=== PATIENT | female | born 1955 | race Caucasian/White ===

== ENCOUNTER 2016-03-11 09:48 | Outpatient (RCR) | payer MEDICARE, MEDICAID ==
--- OUTSIDE RECORDS SUMMARY | 2016-01-08 12:42 | XMS REPORT | Continuity of Care Document ---
Author Author [facility] Organization [facility] Address Unknown Phone Unavailable Care Team Providers Care Camera Systems Engineer Name Role Phone Aneudy Petit PCP [phone] Source Comments Some departments are not documenting in the electronic medical record. If you do not see the information that you expected, contact Release of Information in the Health Information Management department at [phone] for further assistance in locating additional records.[facility] Active Allergies and Adverse Reactions Allergen Noted Date Severity Reactions Comments Ibuprofen 06/09/2009 Pcn 06/09/2009 Current Medications Prescription Sig. Disp. Refills Start End Date Status Date colestipol (COLESTID) 1 Take 1 g by mouth Three Active gram tablet Times Daily. Quetiapine (SEROQUEL XR) Take 400 mg by mouth Active 400 mg Tb24 Daily. ramelteon,+, (ROZEREM) 8 Take 8 mg by mouth At Active mg Tab Bedtime Daily. ropinirole (REQUIP) 2 mg Take 2 mg by mouth At Active tablet Bedtime Daily. simvastatin (ZOCOR) 20 mg Take 20 mg by mouth At Active tablet Bedtime Daily. memantine,+, (NAMENDA) 10 Take 10 mg by mouth Twice Active mg tablet Daily. donepezil (ARICEPT) 10 mg Take 10 mg by mouth At Active tablet Bedtime Daily. budesonide/formoterol Inhale 2 Puffs by mouth Active (SYMBICORT) 160/4.5 mcg daily. HFAA inhalation tiotropium (SPIRIVA) 18 Inhale 18 mcg by mouth Active mcg capsule for inhaler daily. Omalizumab (XOLAIR) 150 Inject 150 mg into Active mg SolR area(s) as directed every 30 days. ARIPiprazole (ABILIFY) 10 Take 10 mg by mouth Active mg tablet daily. alendronate (FOSAMAX) 70 Take 70 mg by mouth every Active mg tablet 7 days. ALPRAZolam (XANAX) 1 mg Take 1 mg by mouth as Active tablet Needed. nitroglycerin (NITROSTAT) Place 0.4 mg under tongue Active 0.4 mg tablet every 5 minutes as needed for Chest Pain. diphenoxylate/atropine Take 2 Tabs by mouth as Active (LOMOTIL) 2.5/0.025 mg Needed for Diarrhea. tablet gabapentin (NEURONTIN) Take 1,200 mg by mouth Active 600 mg tablet three times daily. apixaban (ELIQUIS) 5 mg Take 5 mg by mouth twice Active tab tablet daily. digoxin (LANOXIN) 125 mcg Take 0.125 mg by mouth Active tablet daily. oxyCODONE (ROXICODONE) 5 Take 5 mg by mouth every Active mg tablet 6 hours as needed for Pain other medication 1 Dose. 3L/NC home oxygen Active primidone (MYSOLINE) 250 Take 250 mg by mouth Active mg tablet every 8 hours. Desvenlafaxine (PRISTIQ) Take by mouth daily. Active 100 mg Tb24 octreotide (SANDOSTATIN) Inject 1 mL into area(s) 60 mL 1 01/21/20 Active 50 mcg/mL injection as directed twice daily 15 with meals. Syringe (Disposable) 1 mL To inject octreotide 50 60 Syringe 12 Active syrg mcg BID with meals 15 Needle (Disp) 25 G 25 x To inject octreotide 60 Each 12 01/28/20 Active 5/8 " ndle 50mcg BID with meals 15 oxybutynin XL (DITROPAN Take 1 Tab by mouth 90 Tab 3 05/09/19 Active XL) 10 mg tablet daily. 16 estrogens, conjugated(+) half a gram per vagina 1 Container 2 Active (PREMARIN) 0.625 mg/g twice per week 16 vaginal cream FLUTICASONE PROPIONATE Insert into nose as Active (FLONASE NA) directed. CETIRIZINE HCL (ZYRTEC Take by mouth. Active PO) omeprazole DR(+) Take 1 Cap by mouth twice 60 Cap 2 08/29/19 Active (PRILOSEC) 40 mg capsule daily before meals. 16 metoprolol XL (TOPROL XL) Take 100 mg by mouth Active 100 mg tablet daily. oxybutynin XL (DITROPAN Take 1 Tab by mouth 90 Tab 0 11/02/19 Active XL) 10 mg tablet daily. 16 Active Problems Problem Noted Date Urge incontinence of urine 06/13/2015 Last Assessment & Plan: Long standing leakage Has had RICO procedures Worse overnight / nocturia Reports incomplete emptying at times - PLAN Urodynamics (to be scheduled after performing a Cysto due to hematuria and prior sling procedures and age > 40 and smoking history) Hematuria 06/13/2015 Last Assessment & Plan: Hematuria noted on today's urine analysis patient is a smoker and has resumed smoking after quitting for a long time workup using cystoscopy has been completed and it was negative no Real system imaging on file - PLAN order placed for CT scan of abdomen and pelvis to assess for Masses and urothelial abnormalities with indication of hematuria Voiding dysfunction 06/13/2015 Last Assessment & Plan: The patient and I had extensive discussion regarding her voiding dysfunction and how it relates to her multiple sclerosis we discussed the fact that multiple sclerosis the disease that waxes and wanes and thus according to That her voiding ability will vary and thus she will need to catheterize herself at times if she feels that she is distended has it has not been able to Empty well History of pubovaginal sling 06/13/2015 Last Assessment & Plan: Has had a sling as well as bulking agent plaed for RICO but still leaks No recent UROs Has not been asessed for OAB / no meds tried as per patient - PLAN Urodynamics after Cysto (check UPP) Heartburn 01/19/2015 COPD (chronic obstructive pulmonary disease) ([facility]) 05/18/2012 Diabetes mellitus (HCC) 05/18/2012 TIA (transient ischemic attack) 05/18/2012 Diarrhea 05/18/2012 Most Recent Encounters Date Type Specialty Providers Description 12/20/2015 Patient Profile Cardiology Wilfredo Fleming New Patient - A Fib 12/15/2015 Telephone Cardiology Symone Lee Records Request 12/08/2015 Telephone Gastroenterology Edgardo Torres MD Records Request 11/10/2015 Telephone Uro Gilles Wilson MD Results 11/06/2015 Telephone Uro Gilles Wilson MD General Question 10/27/2015 Telephone [facility] [employer] [facility] Gilles Ness MD New Treatment Follow Up 10/26/2015 Telephone Uro Gilles Wilson MD Patient Information 10/25/2015 [facility] Gilles Ness MD Hematuria, unspecified Encounter 10/25/2015 Office Visit [facility] [employer] Gilles Ness MD Hematuria (Primary Dx ); Voiding dysfunction Social History Tobacco Use Types Packs/Day Years Used Date Former Smoker Cigarettes 40 Quit: 05/29/2015 Smokeless Tobacco: Never Used Tobacco Cessation: Ready to Quit: No; Counseling Given: Yes Comments: Alcohol Use Drinks/Week oz/Week Comments No 0 Standard 0.0 drinks or equivalent Last Filed Vital Signs Vital Sign Reading Time Taken Blood Pressure 101/65 10/25/2015 10:12 AM CDT Pulse 74 10/25/2015 10:12 AM CDT Temperature 36.8 C (98.2 F) 06/13/2015 1:02 PM [employer] Respiratory Rate 20 10/25/2015 10:12 AM CDT Height 1.626 m (5' 4") 10/25/2015 10:12 AM CDT Weight 65.772 kg (145 lb) 10/25/2015 10:12 AM CDT Body Mass Index 24.88 10/25/2015 10:12 AM CDT Oxygen Saturation 96% 09/26/2015 5:00 PM CDT Plan of Care Date Type Specialty Providers Description 04/22/2016 Appointment [facility] Gilles Ness MD [address] [facility] [address] [place] [address] [phone] (Fax) Health Maintenance Due Date Last Done Comments Hepatitis C Screening 1955 Physical (Comprehensive) 1960 Exam Pertussis Vaccine 1964 Tetanus Vaccine 1970 Dilated Eye Exam 07/21/1971 Foot Exam 07/21/1971 Hba1c 07/21/1971 Microalbumin 07/21/1971 Pneumonia Vaccine (Dm) 07/21/1971 Cervical Cancer Screening 1974 Breast Cancer Screening 1993 Colorectal Cancer 07/21/2003 Screening Shingles Vaccine 2013 Influenza Vaccine 12/07/2015 Results from Last [address] ABD/PELV WO/W CONTRAST (11/10/2015)CULTURE-URINE W/SENSITIVITY (10/25/2015 10 :10 AM) Component Value Range Battery Name URINE CULTURE Specimen Description URINE, CLEAN CATCH Special Requests NONE Culture NO GROWTH Report Status FINAL 10/26/2015 Specimen Urine - Urine,Clean Catch HC BLADDER SCAN (10/25/2015) Component Value Range Post Void Residual 0 mL POC URINE DIPSTICK MANUAL READ (10/25/2015) Component Value Range Urine Glucose POC neg Urine Bilirubin POC neg Urine Ketone POC neg Urine Specific [place] 1.015 POC Urine Blood POC 5 Urine PH POC 5.0 Urine Protein POC neg Urine Urobilinogen POC neg Urine Nitrite POC neg Urine Leukocytes POC neg Color,UA lt yellow Turbidity,UA clear Specimen Urine
[2016-01-17] MEDS: OMALIZUMAB SUB-Q 150 MG (XOLAIR) VIAL SQ SCH (14:45)
[2016-01-17 14:49] VITALS: BP 130/80
[2016-02-14] MEDS: OMALIZUMAB SUB-Q 150 MG (XOLAIR) VIAL SQ SCH (10:15)
[2016-02-14 10:22] VITALS: BP 123/64
[~2016-03-11] VITALS: Ht 162.6 cm; Wt 67.6 kg
[~2016-03-11 09:48] MED LIST: ACIPHEX; ALB0.5V INH; ALBU8.5H2 IH; ALBU8.5H4 IH; ALEN70TA47 PO; ALN70T PO; ALPR.5T PO; ALPR0.5T72 PO; ALPR1TAB2 PO; ALPR1TAB7 PO; AMIO200T10 PO; APIX5TAB PO; APIX5TAB2 PO; ARIP10TA10 PO; ARIP15TA9 PO; ASP325T PO; ASP325TEC PO; ASP81TEC PO; BACL10TA PO; BUDE10.2 IH; BUDE6HFA IH; BUTA1CAP42 PO; CALC-80 PO; CALC600T PO; CEPH-507 PO; CETI10TA17 PO; CHANTIX; CHLO500T2 PO; CHOL200018 PO; CHOL4PAC19; CIPR-17; CIPR-225 PO; CLCX200C PO; CLIN300C3 PO; CODE1CAP20 PO; COLE1TAB; COLE1TAB PO; CTRZ10T; CYCL10TA9; CYCL10TA9 PO; DESV100T PO; DESV50TA PO; DEXL60CA5 PO; DIAZ2TAB2 PO; DICY10CA26 PO; DIGO-10 PO; DIGO125T PO; DILT240C9 PO; DILT240C90 PO; DILTIAZEM; DIPH1TAB PO; DIPH1TAB25 PO; DIPH1TAB45 PO; DIVA500T15 PO; DNPZ10T PO; DNPZ5T; DRON400T2 PO; DULO30CA; DVL500TSR PO; ESCI10TA55 PO; ESCI20TA2 PO; ESCT10T; ESZO3TAB3 PO; FAMO20TA13; FLDR.1T PO; FLUT16SP22 NSEACH; FLUT1DIS26 IH; FURO20TA4 PO; GABA-488 PO; GABA300T; GABA600T PO; GABA600T2 PO; GBPN300C; GBPN300C PO; GFN600TCR PO; HSCO125; HYDR-1231 PO; HYDR-2858; HYDR-2889 PO; HYDR-3714 PO; HYDR-3720 PO; HYDR-3812; HYDR-3874 PO; HYDR-3923 PO; HYDR-700 PO; HYDR1CAP2 PO; HYDR1TAB66 PO; HYDR1TAB86; IBUP-1773 PO; LEVO500T2 PO; LEVO750T9 PO; LIPA1CAP21; LNS30CCR; LOPE2CAP; LRT10T; LRT10T PO; MAGN400T6 PO; MELO-195 PO; MEMA10TA PO; MEMA10TA22 PO; MEMA28CA PO; MERO1VIA3 IV; METO10TA3 PO; METO5TAB75 PO; METO5TAB79 PO; MNTL10T PO; MONT10TA21 PO; MONT10TA24 PO; MORP30CP12 PO; MTC10T; MTF500T; NAPR-243 PO; NAPR550T PO; NICO1PAT34 TD; NITR-65 PO; NITR0.3T6 SL; NITR0.4T PO; NORT25CA PO; NTR.4SL; NTR.4SL SL; OCTR100V2 IJ; OLOP2.5D OU; OMEP40CA36 PO; ONDA8TAB9 PO; OPIU10TI PO; ORPH100T PO; OXC5T PO; OXYB10TA PO; OXYC-309 PO; PANT40TA PO; PGLT30T; PHEN-640 PO; PIOG45TA PO; PNT40TEC; PNT40TEC PO; POTA10CA43 PO; POTA10TA36 PO; POTA10TA6 PO; POTA40LI PO; PRD20T PO; PREG100C22; PREG50C PO; PRIM250T PO; PRIM50TA33 PO; PRM25T PO; QUET300T; QUET400T; QUET400T PO; RAME8T PO; ROFL500T PO; ROPI2TAB28 PO; ROPI2TAB4 PO; RT-ALBUINH IH; SCR1T1 PO; SIMV20TA PO; SIMV20TA3 PO; SMTR6KT.5 SQ; SMV20T PO; SUCR1TAB PO; SULF1TAB35 PO; TEMA15CA54 PO; TEMA30CA PO; TIOT18CA IH; TIOT18CA2 IH; TIZA4TAB55 PO; TMZP15C PO; TOPI100T PO; TOPI25TA10 PO; TOPI50TA2 PO; TRAM-21 PO; TRAM50TA2 PO; TRAZ-28 PO; TRAZ150T42 PO; TRIA5PAS10 TOP; TRIH2TAB2 PO; TRZ50T; VORT20TA PO; ZLP10T; ZLP10T PO; ZLP5T PO; ZOLP5TAB7 PO; [UNRECOGNIZED DRUG - CODE]; [UNRECOGNIZED DRUG - CODE] PO; norflex PO
[2016-03-11 11:04] VITALS: BP 107/67
[2016-03-11] MEDS: OMALIZUMAB SUB-Q 150 MG (XOLAIR) VIAL SQ SCH (11:04)
== END 2016-04-07 | disposition home or self-care (01) ==
LOC: SDC 09:48
PROVIDERS: ATTEND Internal Medicine Pulmonary Disease
DX: J45.50 Severe persistent asthma, uncomplicated (principal)
CPT/HCPCS: 96372

== ENCOUNTER → 2016-04-18 | Outpatient (CLI) | payer MEDICARE, MEDICAID ==
[~2016-04-18] MED LIST changes: +CEFD300C3 PO; +CITA20TA7 PO; +DILT240C PO; +DONE5TAB30 PO; +FAMO20TA3 PO; +FESO4TAB PO; +FLUC100T6 PO; +FLUR15CA14 PO; +HYDR-756 PO; +LEVO750T39 PO; +METO-352 PO; +VORT5TAB PO
[2016-04-18 16:02] LABS: MEAN PLATELET VOLUME 10.4 FL (7.4-10.4); RED BLOOD COUNT 4.65 10^6/uL (4.35-5.85); RED CELL DISTRIBUTION WIDTH 13.6 % (10.0-14.5); WHITE BLOOD COUNT 9.1 10^3/uL (4.3-11.0)
[2016-04-18 16:20] LABS: ALANINE AMINOTRANSFERASE 13 U/L (0-55); ANION GAP 9 MMOL/L (5-14); ASPARTATE AMINO TRANSFERASE 20 U/L (5-34); BILIRUBIN,TOTAL 0.3 MG/DL (0.1-1.0); BLOOD UREA NITROGEN 6 MG/DL (7-18); BUN/CREATININE RATIO 10; CALCIUM 9.2 MG/DL (8.5-10.1); CARBON DIOXIDE 24 MMOL/L (21-32); CHLORIDE 102 MMOL/L (98-107); CREATININE SERUM 0.61 MG/DL (0.60-1.30); GFR ESTIMATED > 60; GLUCOSE 76 MG/DL (70-105); POTASSIUM 4.3 MMOL/L (3.6-5.0); SODIUM 135 MMOL/L (135-145); TOTAL PROTEIN 6.5 G/DL (6.4-8.2)
== END ==
LOC: LAB 15:45
PROVIDERS: ATTEND Nurse Practitioner Family
DX: J44.9 Chronic obstructive pulmonary disease, unspecified (principal)
CPT/HCPCS: 36415; 80053; 85027

== ENCOUNTER → 2016-04-23 | Outpatient (CLI) | payer MEDICARE, MEDICAID ==
--- NOTE | 2016-04-23 14:41 | Diagnostic Imaging Report ---
PROCEDURE: CT chest without contrast. TECHNIQUE: Multiple contiguous axial images were obtained through the chest without the use of intravenous contrast. INDICATION: Dyspnea and weight loss, history of tobaccoism. COMPARISON: 08/04/2015. DISCUSSION: Underlying moderate/ severe emphysematous changes are again demonstrated bilaterally, stable. No focal consolidation. No pulmonary nodule or suspicious mass. Antecedent granulomatous disease is again noted, benign. The pulmonary arteries are dilated consistent with underlying pulmonary artery hypertension, increased from prior. Mild cardiomegaly is stable. No pleural or pericardial fluid. No mediastinal, hilar, or axillary adenopathy. The gallbladder is surgically absent. The visualized upper abdomen is otherwise unremarkable. Postoperative changes are noted within the cervical spine. No acute osseous abnormality is identified. IMPRESSION: 1. Stable chronic changes of emphysema. 2. Mild cardiomegaly. 3. Pulmonary artery hypertension. Dictated by: Dictated on workstation # [id number]
== END ==
LOC: RAD 13:34
PROVIDERS: ATTEND Nurse Practitioner Family
DX: J44.9 Chronic obstructive pulmonary disease, unspecified (principal); Z72.0 Tobacco use; R63.4 Abnormal weight loss; J45.909 Unspecified asthma, uncomplicated
CPT/HCPCS: 71250

== ENCOUNTER 2016-04-24 05:53 | Outpatient (CLI) | payer MEDICARE, MEDICAID ==
[~2016-04-24] VITALS: Ht 162.6 cm; Wt 68.9 kg
[~2016-04-24 05:53] MED LIST changes: -CEFD300C3 PO; -CITA20TA7 PO; -DILT240C PO; -DONE5TAB30 PO; -FAMO20TA3 PO; -FESO4TAB PO; -FLUC100T6 PO; -FLUR15CA14 PO; -HYDR-756 PO; -LEVO750T39 PO; -METO-352 PO; -VORT5TAB PO
[2016-04-26] MEDS ORDERED: FLUC100T6 PO (13:07)
== END 2016-04-24 10:32 ==
LOC: PREOP 05:53
PROVIDERS: ATTEND Surgery Pediatric Surgery
DX: Z01.818 Encounter for other preprocedural examination (principal); K21.9 Gastro-esophageal reflux disease without esophagitis

== ENCOUNTER 2016-04-26 10:33 | Day surgery (SDC) | payer MEDICARE, MEDICAID ==
[~2016-04-26] VITALS: Ht 162.6 cm; Wt 68.9 kg
[2016-04-26] MEDS ORDERED: NS IV 500 ML 500 ML ONE (10:36)
[2016-04-26] MEDS ORDERED: NS IV 500 ML 500 ML IV PRN (11:25)
[2016-04-26] MEDS ORDERED: HURRICAINE EXT TUBE (BENZOCAINE) XX PRN (11:30)
[2016-04-26] MEDS ORDERED: FLUMAZENIL (ROMAZICON) 0.1 MG/ML 5 ML VIAL INJ PRN (11:30)
[2016-04-26] MEDS ORDERED: LIDOCAINE JELLY 2% (XYLOCAINE) 5 ML TUBE MM PRN (11:30)
[2016-04-26] MEDS ORDERED: NALOXONE 0.4 MG/ML 1 ML (NARCAN) VIAL IVP PRN (11:30)
--- NOTE | 2016-04-26 11:46 | Conscious Sedation/ASA ---
Conscious Sedation Pre-Proced Time Reviewed: 11:45 ASA Class: 3 Airway Mallampati Classification: ([place] appropriate class) I. II. III, IV Lungs Heart ASA score ASA 1: a normal healthy patient ASA 2: a patient with a mild systemic disease (mid diabetes, controlled hypertension, obesity ASA 3: a patient with a severe systemic disease that limits activity (angina , COPD, prior Myocardial infarction) ASA 4: a patient with an incapacitating disease that is a constant threat to life (CHF, renal failure) ASA 5: a moribund patient not expected to survive 24 hrs. (ruptured aneurysm) ASA 6: a declared brain patient whose organs are being harvested. For emergent operations, add the letter E after the classification Grade 2 Sedation Plan: Analgesia, Amnesia, Plan communicated to team members, Discussed options with patient/fam, Discussed risks with patient/fam Note The patient is an appropriate candidate to undergo the planned procedure, sedation, and anesthesia. The patient immediately re-assessed prior to indication. PETAR NORMAN MD Apr 26, 2016 11:46 am
[2016-04-26] MEDS ORDERED: DILT240C PO (11:47)
[2016-04-26] MEDS ORDERED: METO-352 PO (11:47)
[2016-04-26] MEDS ORDERED: FLUR15CA14 PO (11:47)
[2016-04-26] MEDS ORDERED: FAMO20TA3 PO (11:47)
[2016-04-26] MEDS ORDERED: CEFD300C3 PO (11:47)
[2016-04-26] MEDS ORDERED: HYDR-756 PO (11:47)
[2016-04-26] MEDS ORDERED: BACL10TA PO (11:47)
[2016-04-26] MEDS ORDERED: DONE5TAB30 PO (11:47)
[2016-04-26] MEDS ORDERED: LEVO750T39 PO (11:47)
[2016-04-26] MEDS ORDERED: FESO4TAB PO (11:47)
[2016-04-26] MEDS ORDERED: VORT5TAB PO (11:47)
[2016-04-26] MEDS ORDERED: TRAM50TA2 PO (11:47)
[2016-04-26] MEDS ORDERED: CITA20TA7 PO (11:47)
--- NOTE | 2016-04-26 11:47 | Progress Note-Pre Operative ---
Pre-Operative Progress Note H&P Reviewed The H&P was reviewed, patient examined and no changes noted. Date H&P Reviewed: Apr 26, 2016 Time H&P Reviewed: 11:45 Pre-Operative Diagnosis: dysphagia, GERD PETAR NORMAN MD Apr 26, 2016 11:47 am
[2016-04-26] MEDS ORDERED: morphine INJ 10 MG/ML 1ML (SYR OR VIAL) IV PRN (12:00)
[2016-04-26] MEDS ORDERED: HYDROcodone/APAP 5 MG/325 MG (LORTAB) TAB PO PRN (12:00)
[2016-04-26] MEDS ORDERED: ONDANSETRON 4 MG/2 ML (SDV) Z0FRAN IV PRN (12:00)
[2016-04-26] MEDS ORDERED: ACETAMINOPHEN 325 MG TABLET/CAPLET (TYLENOL) PO PRN (12:00)
[2016-04-26] MEDS ORDERED: LIDOCAINE JELLY 2% (XYLOCAINE) 5 ML TUBE ONE (12:23)
[2016-04-26] MEDS ORDERED: HURRICAINE EXT TUBE (BENZOCAINE) ONE (12:24)
[2016-04-26] MEDS ORDERED: MIDAZOLAM 2 MG/2 ML (VERSED) VIAL ONE ×4 (12:24)
[2016-04-26] MEDS ORDERED: fentaNYL INJECTION 100 MCG/2 ML AMP ONE (12:24)
[2016-04-26] MEDS: fentaNYL INJECTION 100 MCG/2 ML AMP IVP PRN ×2 (12:28→12:31)
[2016-04-26] MEDS: MIDAZOLAM 2 MG/2 ML (VERSED) VIAL IVP PRN ×3 (12:30→12:35)
[2016-04-26 12:38] VITALS: BP 132/65
--- NOTE | 2016-04-26 13:06 | Progress Note-Post Operative ---
Post-Operative Progess Note Pre-Operative Diagnosis dysphagia, GERD Post-Operative Diagnosis reflux esophagitis(class C), distal esophageal stricture and plaque, moderate gastritis. Post-Op Procedure Note Date of Procedure: Apr 26, 2016 Name of Procedure: EGD with bx and brushings and balloon dilatation. Anesthesia Type CS Estimated blood loss (mL): minimal Specimen(s) collected GE jxn bx and brushings, antrum PETAR NORMAN MD Apr 26, 2016 1:06 pm
[2016-04-26] MEDS ORDERED: FLUC100T6 PO (13:07)
--- NOTE | 2016-04-26 13:08 | Discharge Inst-Surgical ---
D/C Lap Instructions-KIDO New, Converted, or Re-Newed RX: RX on Chart Follow Up 1 year Activity as tolerated High Fiber Diet 25g or more per day Avoid Alcohol, Caffeine, Spicy [place] and Acid foods. Drink 64 fluid oz or more of fluids per day. Symptoms to Report: Fever over 101 degree F, Nausea/Vomiting If any problems/questions: Contact your physician or go to Emergency Room PETAR NORMAN MD Apr 26, 2016 1:08 pm
[2016-04-26 13:25] VITALS: BP 115/69
[2016-04-26 13:55] VITALS: BP 127/72
--- NOTE | 2016-04-27 22:01 | OPERATIVE REPORT ---
PROCEDURE PHYSICIAN: PETAR VILLASENOR DATE OF PROCEDURE: 04/26/2016 ATTENDING PHYSICIAN: Dr. Petit PREOPERATIVE DIAGNOSES: 1. Recurrent dysphagia. 2. Gastroesophageal reflux disease. POSTOPERATIVE DIAGNOSES: 1. Mild distal esophageal stricture. 2. White plaque within the distal esophagus, which may indicate esophageal candidiasis. 3. Intact wrap. 4. Moderate gastritis. PROCEDURE: EGD with biopsy, brushings, and balloon dilatation. SURGEON: Dr. Villasenor. ANESTHESIA: Conscious sedation. ESTIMATED BLOOD LOSS: Minimal. FINDINGS: 1. Reflux esophagitis between class B and C with white plaque of the distal esophagus, most likely indicating an esophageal candidiasis. 2. Distal mild distal esophageal stricture. 3. Intact wrap. 4. No recurrent hiatal hernia. 5. Moderate severity gastritis. DISPOSITION: The patient tolerated the procedure well. BRIEF HISTORY: Ms. Nara Huizar is a 60-year-old female known to us. She has multiple medical problems, as well as gastrointestinal issues. She has a history of Celaya's esophagus and underwent a Hill gastropexy in 2006. We had seen her in 2011 for recurrent reflux and dysphagia. She was found to have a slight stricture and balloon dilatation was performed. She then developed severe degenerative joint disease and underwent a cervical vertebrae ORIF procedure and did have complications including, hematoma requiring extended intubation as well as reoperation. She had another EGD done 12/10/2013, which again showed a reflux esophagitis She was seen again in June 2015 for the same type of symptoms. She reports that after every dilatation she does well for some period of time; however, her dysphagia and reflux symptoms recur over time. She does have a number of risk factors including continuation of smoking and greater than 45 pack-years, as well as taking in a number of medications. She is again symptomatic and we will proceed with an EGD, biopsies, as well as dilatation. The patient was brought to the endoscopy suite, laid in the left lateral decubitus position. After adequate IV pain and sedative medications and conscious sedation anesthesia, the mouthpiece was applied. The endoscope was placed in the mouth, visualizing the pharynx and hypopharyngeal region. Vocal cords, epiglottis and vallecula identified and appeared to be normal. The endoscope was then gently intubated into the esophageal opening and the esophagus insufflated. The endoscope was then advanced through the first, second, and 3rd portions of the esophagus. At the level of the GE junction, a distal esophageal stricture which was now mild was identified. There was also a white plaquish material of the distal esophagus, which may indicate an esophageal candidiasis as well. A biopsy was taken with forceps and brushings taken as well. With gentle pressure, the endoscope was able to pass through the stricture and the endoscope retroflexed. The previous Hill gastropexy appeared to be intact with no recurrent hiatal hernia. There was a moderate severity gastritis identified with some superficial erosions; however, no formal ulcers. A biopsy was taken of the antrum with forceps of visualization of good hemostasis. The endoscope was then advanced through the pylorus into the first and second portion of the duodenum, which appeared normal. We then decided to proceed with another dilatation. A CRE fixed guidewire balloon was placed into the stomach directly and then pulled back near the area of the stricture. The balloon was first dilated to 3 atmospheres of pressure or 18 mm with no resistance. We then proceeded with 4.5 atmospheres of pressure with mild resistance. We then proceeded to 6 atmospheres of pressure again with mild resistance and left this in place for approximately 60 seconds. She did show some discomfort indicating most likely successful dilatation. The balloon was then desufflated and removed. The endoscope was then slowly withdrawn while taking a second look and suctioning of residual air with no additional findings. The patient tolerated the procedure well. We will have her continue with medical management with the necessary lifestyle and diet accommodation including smoking cessation as well as avoidance of caffeinated beverages, spicy, greasy and acidic foods, as well as smaller, more frequent meals. She also needs to continue with her PPI acid reducers daily. We will also empirically start her on Diflucan for potential esophageal candidiasis. If she cannot tolerate solid foods well, then she is instructed to bolster her nutritional status with meal replacement shakes. Job ID: [id number] Dictated Date: 04/26/2016 13:04:39 Varying Exceptionalities Teacher Date: 04/27/2016 21:45:23 / uday
== END 2016-04-26 14:00 | disposition home or self-care (01) ==
LOC: SDC 10:33
PROVIDERS: ATTEND Surgery Pediatric Surgery
DX: K21.0 Gastro-esophageal reflux disease with esophagitis (principal); K22.2 Esophageal obstruction; K29.70 Gastritis, unspecified, without bleeding
CPT/HCPCS: 87101; 87106

== ENCOUNTER 2016-06-07 09:56 | Outpatient (RCR) | payer MEDICARE, MEDICAID ==
[2016-04-09] MEDS: OMALIZUMAB SUB-Q 150 MG (XOLAIR) VIAL SQ SCH (10:19)
[2016-04-09 10:22] VITALS: BP 113/64
[2016-05-10] MEDS: OMALIZUMAB SUB-Q 150 MG (XOLAIR) VIAL SQ SCH (10:26)
[2016-05-10 10:28] VITALS: BP 106/68
[~2016-06-07] VITALS: Ht 162.6 cm; Wt 67.6 kg
[~2016-06-07 09:56] MED LIST changes: +CEFD300C3 PO; +CITA20TA7 PO; +DILT240C PO; +DONE5TAB30 PO; +FAMO20TA3 PO; +FESO4TAB PO; +FLUC100T6 PO; +FLUR15CA14 PO; +HYDR-756 PO; +LEVO750T39 PO; +METO-352 PO; +VORT5TAB PO
[2016-06-07] MEDS: OMALIZUMAB SUB-Q 150 MG (XOLAIR) VIAL SQ SCH (10:18)
[2016-06-07 10:20] VITALS: BP 110/71
== END 2016-07-08 | disposition home or self-care (01) ==
LOC: SDC 09:56
PROVIDERS: ATTEND Internal Medicine Pulmonary Disease
DX: J45.50 Severe persistent asthma, uncomplicated (principal)
CPT/HCPCS: 96372

== ENCOUNTER → 2016-08-20 | Outpatient (CLI) | payer MEDICARE, MEDICAID ==
--- NOTE | 2016-08-20 09:13 | Diagnostic Imaging Report ---
INDICATION: Shortness of breath, reactive airways disease. PA and lateral chest. Heart size and pulmonary vascularity are normal. Lungs are clear. There are no effusions or pneumothoraces. IMPRESSION: Negative chest. Dictated by: Dictated on workstation # [id number]
== END ==
LOC: RAD 08:59
PROVIDERS: ATTEND Nurse Practitioner Family
DX: J45.909 Unspecified asthma, uncomplicated (principal); J43.8 Other emphysema; R06.02 Shortness of breath; R53.83 Other fatigue; R50.9 Fever, unspecified; Z72.0 Tobacco use
CPT/HCPCS: 71020

== ENCOUNTER 2016-08-26 07:59 | Outpatient (CLI) | payer MEDICARE, MEDICAID ==
[~2016-08-26] VITALS: Ht 162.6 cm; Wt 71.9 kg
[2016-08-26 08:30] VITALS: BP 121/75
[2016-08-26] MEDS ORDERED: TRAZ150T72 PO (12:00)
[2016-08-26] MEDS ORDERED: COLE625T9 PO (12:02)
== END 2016-08-26 08:54 | disposition home or self-care (01) ==
LOC: PREOP 07:59
PROVIDERS: ATTEND Orthopaedic Surgery
DX: Z01.810 Encounter for preprocedural cardiovascular examination (principal); Z11.2 Encounter for screening for other bacterial diseases; M23.201 Derangement of unspecified lateral meniscus due to old tear or injury, left knee; M23.204 Derangement of unspecified medial meniscus due to old tear or injury, left knee
CPT/HCPCS: 87081; 93005

== ENCOUNTER 2016-09-03 10:00 | Outpatient (RCR) | payer MEDICARE, MEDICAID ==
[~2016-09-03 10:00] MED LIST changes: +COLE625T9 PO; +TRAZ150T72 PO
[2016-09-04] MEDS ORDERED: HYDR-3816 PO (12:57)
== END 2016-09-08 | disposition home or self-care (01) ==
LOC: PULM 10:00
PROVIDERS: ATTEND Nurse Practitioner Family
DX: J44.9 Chronic obstructive pulmonary disease, unspecified (principal); R06.02 Shortness of breath; F17.201 Nicotine dependence, unspecified, in remission; G47.34 Idiopathic sleep related nonobstructive alveolar hypoventilation; I48.92 Unspecified atrial flutter; R09.02 Hypoxemia
CPT/HCPCS: 99211

== ENCOUNTER 2016-09-04 09:35 | Day surgery (SDC) | payer MEDICARE, MEDICAID ==
--- NOTE | 2016-08-27 11:23 | HISTORY AND PHYSICAL ---
DATE OF SERVICE: 09/04/2016 HISTORY OF PRESENT ILLNESS: The patient is a 61-year-old female with a long-standing history of progressive knee pain, primarily on her medial aspect. She has undergone injections with minimal relief of her symptoms. She reports continued pain, popping and swelling. She reports functional impairment and due to failure to improve with conservative measures, the patient has elected to proceed with surgical intervention. Radiographs reveal mild medial compartment joint space narrowing. REVIEW OF SYSTEMS: No chest pain. No shortness of breath. No dysuria. PAST MEDICAL HISTORY: Cervical spine disease. PAST SURGICAL HISTORY: Cholecystectomy, thumb x 4, herniorrhaphy, left elbow and cervical spine. FAMILY HISTORY: Diabetes, hypertension. PRIMARY CARE PROVIDER: MEDICATIONS: No current medications. SOCIAL HISTORY: The patient smokes half a pack a day. Denies alcohol use. PHYSICAL EXAMINATION: GENERAL: The patient is well-developed, well-nourished, in no acute distress. HEENT: Normocephalic, atraumatic. Pupils are equal, round and reactive to light. Oropharynx is clear. NECK: Supple with no lymphadenopathy. LUNGS: Clear to auscultation bilaterally. HEART: Regular rate and rhythm. ABDOMEN: Soft, nontender, nondistended. EXTREMITIES: The left knee demonstrates range of motion of 0/0/130 with a moderate effusion. She is markedly tender along her medial joint line and has pain medially with Queta's. She is ligamentously stable in all planes and ambulates with an antalgic gait. She has negative straight leg raise. She has patellofemoral crepitus and pain with patellar loading. 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 PLAN: Left knee arthroscopy, partial meniscectomy and chondroplasty. The risks, benefits, options, ramifications and recovery were discussed at length with the patient and she understands and wishes to proceed. Job ID: [id number] DocumentID: [id number] Dictated Date: 08/27/2016 10:00:31 Wool Shearing Supervisor Date: 08/27/2016 11:22:55 Dictated By: ERIC BROOKE MD
[~2016-09-04] VITALS: Ht 162.6 cm; Wt 71.9 kg
[2016-09-04] MEDS ORDERED: LACTATED RINGERS 1,000 ML IV PRN (09:42)
[2016-09-04] MEDS ORDERED: FAMOTIDINE 20MG/2ML IV (PEPCID) ONE (09:50)
[2016-09-04] MEDS ORDERED: NS (IVPB) 50 ML ONE (09:50)
[2016-09-04] MEDS ORDERED: CLINDAMYCIN 600 MG/4ML (CLEOCIN) VIAL ONE (09:50)
[2016-09-04] MEDS ORDERED: CLINDAMYCIN 600 MG/NS 50 ML IVPB IV ONE ×2 (10:00)
--- NOTE | 2016-09-04 10:01 | Progress Note-Pre Operative ---
Pre-Operative Progress Note H&P Reviewed The H&P was reviewed, patient examined and no changes noted. Date H&P Reviewed: September 04, 2016 Time H&P Reviewed: 10:00 Pre-Operative Diagnosis: left knee medial meniscal tear and chondromalacia ERIC BROOKE MD September 04, 2016 10:01
--- NOTE | 2016-09-04 10:02 | Progress Note-Post Operative ---
Post-Operative Progess Note Surgeon (s)/Manager Presentation (s) Surgeon ERIC BROOKE MD Manager Presentation: Paresh Harrison Pre-Operative Diagnosis left knee medial meniscal tear and chondromalacia Post-Operative Diagnosis left knee medial meniscal tear and chondromalacia of the medial femoral condyle, lateral tibial plateau, patella and trochlea Procedure & Operative Findings Date of Procedure 09/04/16 Procedure Performed/Findings left knee arthroscopic partial medial meniscectomy and chondroplasty of the medial femoral condyle, lateral tibial plateau, patella and trochlea Anesthesia Type GETA Estimated Blood Loss Estimated blood loss (mL): minimal Specimens/Packing Specimens Removed none Packing: none ERIC BROOKE MD September 04, 2016 10:02
[2016-09-04] MEDS ORDERED: BUPIVACAINE 0.25% 30 ML (SENSORCAINE) VIAL ONE (10:14)
[2016-09-04] MEDS ORDERED: morphine PF (DURAMORPH) 10 MG/10 ML AMP ONE (10:14)
[2016-09-04] MEDS ORDERED: MIDAZOLAM 2 MG/2 ML (VERSED) VIAL ONE (10:18)
[2016-09-04] MEDS ORDERED: fentaNYL INJECTION 100 MCG/2 ML AMP ONE (10:18)
[2016-09-04 10:30] VITALS: BP 108/79
[2016-09-04] MEDS ORDERED: HYDROcodone/APAP 7.5 MG/325 MG (LORTAB, LORCET PLUS) TABLET PO PRN (10:45)
[2016-09-04] MEDS ORDERED: LIDOCAINE PF 2% 5 ML (XYLOCAINE) VIAL ONE (11:13)
[2016-09-04] MEDS ORDERED: proPOfol 200 MG/20 ML (DIPRIVAN) VIAL IV ONE (11:13)
[2016-09-04] MEDS ORDERED: LACTATED RINGERS 1,000 ML IV ONE (11:13)
[2016-09-04] MEDS ORDERED: ONDANSETRON 4 MG/2 ML (SDV) Z0FRAN ONE (11:13)
[2016-09-04] MEDS ORDERED: SEVOFLURANE (ULTANE) 15 ML INHAL SOLN ONE (11:13)
[2016-09-04] MEDS ORDERED: fentaNYL INJECTION 100 MCG/2 ML AMP IVP PRN (11:30)
[2016-09-04] MEDS: morphine INJ 10 MG/ML 1ML (SYR OR VIAL) IVP PRN ×2 (11:35→11:42)
[2016-09-04 12:10] VITALS: BP 101/74
[2016-09-04 12:40] VITALS: BP 110/63
[2016-09-04] MEDS ORDERED: HYDR-3816 PO (12:57)
[2016-09-04 13:10] VITALS: BP 105/84
--- NOTE | 2016-09-04 13:32 | Physical Therapy Ortho Eval ---
PT Orthopedic Evaluation Type of Surgery Knee Scope left side Prior Level of Function Current Living Status: Significant Other Locomotion (Upon Admit): Independent Established Durable Medical Eq: Front Wheeled Walker Subjective Subjective Patient in bed pre tx, has 8/10 pain in left knee, no complaints of dizziness or light headedness Entry Into Home: Level Entry Objective Objective left knee flexion 80 degrees, extension +5 degrees Motor Control Motor Control: Motor Control WNL Strength NT Transfer Transfers (B, C, W/C) (FIM): 5 Gait Gait Assistive Device: FWW Patient ambulated 100' with a rolling walker with SBA, and went up and down 1 step using a rolling walker with CGA, cues for foot placement and safety. Weight Bearing Restriction: Weight Bearing/Tolerated Location Restriction: L LE Gait (FIM): 2 Distance: 100' Gait Level of Assist: 5 Treatment Rendered Treatment: Therapeutic Exercises, Gait Train, Step Train Exercise Instruction: Quad Sets, Heel Slides, Ankle Pumps Assessment/Goals Goal Time Frame: 1 Visit Plan Treatment Plan: Discharge PT/Family Agrees to Plan: Yes Time Time In: 1310 Time Out: 1325 Total Billed Treatment Time: 15 Billed Treatment Time 1 visit EVL 15' Yes PT/OT Therapy GCodes Therapy Functional Limitation: Physical Therapy Test(s)/Tool used to determine: Level of Assistance Scale Functional Limitation-Current Charge Code: MOBCUR Modifier: CI Functional Limitation-Goal Charge Code: MOBGOAL Modifier: CI Functional Limitation-D/C Charge Codes: MOBDC Modifier: CI ROX KOCH PT September 04, 2016 13:32
--- NOTE | 2016-09-04 23:07 | OPERATIVE REPORT ---
DATE OF SERVICE: 09/04/2016 PREOPERATIVE DIAGNOSES: 1. Left knee medial meniscal tear. 2. Left knee chondromalacia of the medial femoral condyle. 3. Left knee chondromalacia of the patella. POSTOPERATIVE DIAGNOSES: 1. Left knee medial meniscal tear. 2. Left knee chondromalacia of the medial femoral condyle. 3. Left knee chondromalacia of the patella. 4. Left knee chondromalacia of the trochlea. 5. Left knee chondromalacia of the lateral tibial plateau. PROCEDURES: 1. Left knee arthroscopic partial medial meniscectomy. 2. Left knee arthroscopic chondroplasty of the medial femoral condyle. 3. Left knee arthroscopic chondroplasty of the patella. 4. Left knee arthroscopic chondroplasty of the trochlea. 5. Left knee arthroscopic chondroplasty of the lateral tibial plateau. SURGEON: Albert Brooke MD. GUN SYNCHRONIZER: AKHIL Anaya, who assisted throughout the procedure and closed the incisions. ANESTHESIA: General endotracheal by [address] CRNA. TOURNIQUET TIME: Not applicable. ESTIMATED BLOOD LOSS: Minimal. DRAINS: None. COMPLICATIONS: None. POSTOPERATIVE PLAN: Routine arthroscopy protocol. The patient was transported to the recovery room awake and in stable condition. STATEMENT OF ORAL CONSENT: The patient is a 61-year-old female with longstanding progressive left knee pain catching, locking and swelling. She was tender along the medial joint line and had pain medially with Tera's. She also had patellofemoral crepitus and pain near the patellar loading. She had failed to respond to rest, activity modifications, injections and home exercise program and therefore due to functional impairment, the patient elected to proceed with surgical intervention. Examination under anesthesia with range of motion 0/0/135 with negative Anju, negative anterior and posterior Drawer. No varus or valgus laxity and negative Pivot shift. ARTHROSCOPIC FINDINGS: The patella demonstrated grade 2 chondral flap centrally in a 10 x 10 area. The trochlea demonstrated grade 2 chondral flaps superiorly and a 5 x 10 area. The medial and lateral gutters were clear. The medial compartment demonstrated a degenerative tear of the posterior horn of the medial meniscus involving approximately one third of the posterior horn. In addition, there were grade 3 chondral flaps in the central portion of the femoral condyle in a 10 x 10 area. The ACL and PCL were intact. The lateral compartment demonstrated grade 2 chondral flaps of the central portion of the tibial plateau and an 8 x 8 area. PROCEDURE IN DETAIL: After risks and benefits of procedure were discussed and questions were answered, an informed consent was signed and placed on the chart. The operative site was confirmed in the preoperative holding area initiated by the surgeon. The patient was then transported to the operating room and after adequate levels of general endotracheal anesthetic were obtained, a timeout was called confirming the operative site. An examination under anesthesia was performed with the above findings noted. The left lower extremity was prepped and draped in the usual sterile fashion. The knee was injected with 60 cc of fluid and a standard inferior lateral portal was placed under direct visualization through the arthroscope with an inferior medial portal was created. The menisci and cruciates were carefully probed with the above findings noted. The unstable chondral flaps on the patella were debrided with the shaver back to a stable edge. Then the unstable flaps of the trochlea were debrided back to a stable edge. The scope was then redirected into the medial compartment where the posterior horn of the medial meniscus was debrided with biter and a shaver, and removed approximately one third of the posterior horn. This was carefully probed with no further tearing or instability noted. Then stable chondral flaps of the new femoral condyle were debrided with a shaver back to a stable edge. The scope was then redirected into the lateral compartment and unstable chondral flaps within the lateral tibial plateau were debrided with the shaver back to a stable edge. The knee was copiously irrigated. The portal sites were closed with 3-0 nylon in a simple interrupted fashion. The knee was injected with Duramorph. The portal sites were infiltrated with plain Marcaine. A soft dressing was applied and the patient was transported to the recovery room awake and in stable condition. Job ID: [id number] DocumentID: [id number] Dictated Date: 09/04/2016 11:25:01 Mural Artist Date: 09/04/2016 18:41:50 Dictated By: ALBERT BROOKE MD
[2016-09-05] MEDS ORDERED: FAMOTIDINE 20MG/2ML IV (PEPCID) IVP SCH (09:00)
== END 2016-09-04 13:34 | disposition home or self-care (01) ==
LOC: SDC 09:35
PROVIDERS: ATTEND Orthopaedic Surgery
DX: M23.8X2 Other internal derangements of left knee (principal); M22.42 Chondromalacia patellae, left knee; E78.5 Hyperlipidemia, unspecified; I48.91 Unspecified atrial fibrillation; J45.909 Unspecified asthma, uncomplicated; J44.9 Chronic obstructive pulmonary disease, unspecified; Z99.81 Dependence on supplemental oxygen; F17.210 Nicotine dependence, cigarettes, uncomplicated; Z79.899 Other long term (current) drug therapy; M79.7 Fibromyalgia; K21.9 Gastro-esophageal reflux disease without esophagitis; E11.9 Type 2 diabetes mellitus without complications; F32.9 Major depressive disorder, single episode, unspecified; G52.9 Cranial nerve disorder, unspecified

== ENCOUNTER 2016-10-04 09:46 | Outpatient (RCR) | payer MEDICARE, MEDICAID ==
[2016-07-12] MEDS: OMALIZUMAB SUB-Q 150 MG (XOLAIR) VIAL SQ SCH (10:29)
[2016-07-12 10:31] VITALS: BP 109/68
[2016-08-09] MEDS: OMALIZUMAB SUB-Q 150 MG (XOLAIR) VIAL SQ SCH (10:27)
[2016-08-09 10:30] VITALS: BP 112/68
[2016-09-06] MEDS: OMALIZUMAB SUB-Q 150 MG (XOLAIR) VIAL SQ SCH (10:53)
[2016-09-06 14:39] VITALS: BP 113/76
[~2016-10-04] VITALS: Ht 162.6 cm; Wt 67.6 kg
[~2016-10-04 09:46] MED LIST changes: +HYDR-3816 PO
[2016-10-04] MEDS: OMALIZUMAB SUB-Q 150 MG (XOLAIR) VIAL SQ SCH (10:12)
[2016-10-04 10:13] VITALS: BP 120/73
== END 2016-10-10 | disposition home or self-care (01) ==
LOC: SDC 09:46
PROVIDERS: ATTEND Internal Medicine Pulmonary Disease
DX: J45.50 Severe persistent asthma, uncomplicated (principal)
CPT/HCPCS: 96372

== ENCOUNTER → 2016-10-31 | Outpatient (CLI) | payer MEDICARE, MEDICAID ==
--- NOTE | 2016-10-31 16:50 | Diagnostic Imaging Report ---
PROCEDURE: MR imaging cervical spine without contrast. TECHNIQUE: Multiplanar, multisequence MR imaging of the cervical spine was performed without contrast. INDICATION: Neck pain and cervical radiculopathy. FINDINGS: There are changes of anterior and posterior fusion in the cervical spine. Susceptibility artifact from fusion hardware posteriorly appears to involve levels from C3 through C7. Anterior fusion hardware is suggested also with plate and screws related to susceptibility artifact involving C5-C6 and another anterior plate involving C7 and T1. There is also evidence of disc spacers in place with suggestion of osseous fusion along C3/4 and C4/5 without anterior plate artifacts suggested. The cervical spine alignment is satisfactory with overall straightened lordotic curvature. The areas of the marrow identified demonstrate no definite or significant abnormality. However, please note that significant portion of the marrow in the cervical spine is not well identified. Examination of the posterior spine also is suggestive of laminectomy performed involving the C3 through C7 levels. The spinal cord has normal caliber, contour, and signal. C2/3 demonstrates posterior osseous bridging of the vertebral bodies. No spinal canal stenosis or foraminal narrowing. C3/4 demonstrates remaining small posterior osteophytes, particularly along the uncovertebral joint level and adjacent left paracentral region without significant spinal canal stenosis. The foramina demonstrate mild narrowing on the left side. C4/5 level demonstrates no spinal canal or foraminal stenosis. C5/6 level demonstrates no spinal canal or foraminal stenosis. C6/7 level demonstrates [id number] foraminal stenosis suggested on the right side and mild foraminal stenosis on the left. No spinal canal stenosis. C7/T1 demonstrates minimal remaining spurs suggested with no significant spinal canal stenosis. The foramina demonstrate bilateral dwtxyhhu-ho-tuapyf stenosis, worse on the right side. T1/2: There is disc herniation and posterior ligamentous hypertrophy resulting in moderate spinal canal stenosis with reduced AP dimension of the canal to 7.2 mm. There is no cord compression or cord signal abnormality evident, however. There is bilateral mild foraminal stenosis. IMPRESSION: Postsurgical changes and fusion seen in the cervical spine with no spinal canal stenosis remaining at any level. However, at the first thoracic level, T1/2, there is moderate spinal canal stenosis reducing the AP dimension of the canal to 7 mm without cord compression. Other findings as above. Dictated by: Dictated on workstation # [id number]
== END ==
LOC: RAD 13:28
PROVIDERS: ATTEND Pain Medicine Interventional Pain Medicine
DX: M48.04 Spinal stenosis, thoracic region (principal); M54.2 Cervicalgia; Z98.1 Arthrodesis status
CPT/HCPCS: 72141

== ENCOUNTER 2016-11-13 13:57 | Outpatient (CLI) | payer MEDICARE, MEDICAID ==
[~2016-11-13] VITALS: Ht 160 cm; Wt 72.6 kg
[2016-11-13 14:05] VITALS: BP 115/71
== END 2016-11-13 14:19 | disposition home or self-care (01) ==
LOC: PREOP 13:57
PROVIDERS: ATTEND Orthopaedic Surgery
DX: Z01.818 Encounter for other preprocedural examination (principal); Z11.2 Encounter for screening for other bacterial diseases; S83.241A Other tear of medial meniscus, current injury, right knee, initial encounter; X58.XXXA Exposure to other specified factors, initial encounter; Y99.8 Other external cause status
CPT/HCPCS: 87081

== ENCOUNTER 2016-11-19 10:00 | Outpatient (RCR) | payer MEDICARE, MEDICAID ==
[2016-11-20] MEDS ORDERED: RIFA550T PO (06:49)
[2016-11-20] MEDS ORDERED: ARIP5TAB12 PO (06:49)
[2016-11-20] MEDS ORDERED: ARPZ20T PO (06:50)
[2016-11-20] MEDS ORDERED: HYDR-3816 PO (10:29)
[2016-11-26] MEDS ORDERED: DILT240C9 PO (13:18)
[2016-11-26] MEDS ORDERED: ALPR0.5T7 PO (13:18)
[2016-11-26] MEDS ORDERED: ESCI10TA55 PO (13:18)
[2016-11-26] MEDS ORDERED: PRD10T PO (13:18)
[2016-11-26] MEDS ORDERED: TRAZ-28 PO (13:18)
[2016-11-26] MEDS ORDERED: MAGN400T29 PO (13:19)
[2016-11-26] MEDS ORDERED: GABA600T2 PO (13:19)
[2016-11-26] MEDS ORDERED: COLE1TAB PO (13:19)
[2016-11-26] MEDS ORDERED: ROPI2TAB4 PO (14:00)
[2016-11-26] MEDS ORDERED: ALBU2.5V4 NEB (14:00)
[2016-11-26] MEDS ORDERED: PANT40TA2 PO (14:00)
[2016-11-26] MEDS ORDERED: METO-270 PO (14:00)
[2016-11-26] MEDS ORDERED: TROS20TA3 PO (14:00)
[2016-11-26] MEDS ORDERED: VORT20TA PO (14:00)
[2016-11-26] MEDS ORDERED: DONE10TA41 PO (14:00)
[2016-11-26] MEDS ORDERED: MIRA50TA PO (14:00)
[2016-11-26] MEDS ORDERED: CLON1TAB PO (14:00)
[2016-11-26] MEDS ORDERED: RT-ALBUINH IH (14:36)
[2016-11-27] MEDS ORDERED: PERM60CR4 TP (10:16)
== END 2016-12-09 | disposition home or self-care (01) ==
LOC: PULM 10:00
PROVIDERS: ATTEND Nurse Practitioner Family
DX: J45.909 Unspecified asthma, uncomplicated (principal); J44.9 Chronic obstructive pulmonary disease, unspecified; R06.02 Shortness of breath; F17.201 Nicotine dependence, unspecified, in remission; G47.34 Idiopathic sleep related nonobstructive alveolar hypoventilation; I48.92 Unspecified atrial flutter; R09.02 Hypoxemia

== ENCOUNTER 2016-11-20 06:00 | Day surgery (SDC) | payer MEDICARE, MEDICAID ==
--- NOTE | 2016-11-13 12:55 | HISTORY AND PHYSICAL ---
DATE OF SERVICE: DATE OF SURGERY: 11/20/2016 RIGHT KNEE ARTHROSCOPY. HISTORY: The patient is a 61-year-old female with progressive worsening right medial knee pain, catching, locking and swelling. She has undergone treatment with injections with only temporary relief of her symptoms. Radiographs reveal mild medial joint space narrowing. She reports difficulty with stairs, squatting, kneeling and twisting and due to functional impairment and failure to improve with conservative measures, the patient has elected to proceed with surgical intervention. REVIEW OF SYSTEMS: No chest pain, no shortness of breath, no dysuria. PAST MEDICAL HISTORY: Cervical spine, coronary artery disease, diabetes mellitus. PAST SURGICAL HISTORY: Cholecystectomy, thumb, herniorrhaphy, left elbow, cervical spine and left knee. SOCIAL HISTORY: The patient smokes half a pack of cigarettes a day. Denies alcohol use. PRIMARY CARE PROVIDER: Dr. Petit. PHYSICAL EXAM: GENERAL: The patient is well-developed, well-nourished in no acute distress. HEENT: Normocephalic, atraumatic. Pupils are equal, round and reactive to light. Oropharynx is clear. NECK: Supple, no lymphadenopathy. LUNGS: Clear to auscultation bilaterally. HEART: Regular rate and rhythm. ABDOMEN: Soft nontender, nondistended. EXTREMITIES: Exam of the right knee demonstrates tenderness along the medial joint line. She has pain medially with Queta's. She has a moderate effusion noted. She has pain with the patella noting range of motion 0/0/130. No varus or valgus laxity. Negative anterior and posterior drawer. The patient ambulates with an antalgic gait. IMPRESSION: Right knee chondromalacia at the patella and medial compartments with medial meniscal tear. PLAN: Right knee arthroscopy with partial medial meniscectomy and chondroplasty. The risks, benefits, options, ramifications and recovery have been discussed at length with the patient. She understands and wishes to proceed. Job ID: [id number] DocumentID: [id number] Dictated Date: 11/13/2016 12:07:07 Physician/Allergy/Immunology Date: 11/13/2016 12:54:14 Dictated By: ERIC BROOKE MD
[~2016-11-20] VITALS: Ht 160 cm; Wt 72.6 kg
--- OUTSIDE RECORDS SUMMARY | 2016-11-20 06:13 | XMS REPORT | Encounter Summary ---
Author Author [facility] Organization [facility] Address Unknown Phone Unavailable Care Team Providers Care Biological Inspector Name Role Phone PCP Unavailable Reason for Visit * Reason Comments Medication Question Encounter Details Date Type Department Care Team Description 10/03/2016 Telephone [facility] Gilles Ness MD Medication Question Physicians - OBGYN [address] [place] [address] [address]TH FLOOR POD C [phone] [place] [address] [phone] Social History Tobacco Use Types Packs/Day Years Used Date Former Smoker Cigarettes 40 Quit: 05/29/2015 Smokeless Tobacco: Never Used Alcohol Use Drinks/Week oz/Week Comments No 0 Standard 0.0 drinks or equivalent Sex Assigned at Date Recorded Not on file as of this encounter Plan of Treatment Not on fileas of this encounter Visit Diagnoses Not on filein this encounter
--- OUTSIDE RECORDS SUMMARY | 2016-11-20 06:13 | XMS REPORT | Clinical Summary ---
Author Author [facility] Organization [facility] Address Unknown Phone Unavailable Care Team Providers Care Nut And Bolt Assembler Name Role Phone PCP Unavailable Source Comments Some departments are not documenting in the electronic medical record. If you do not see the information that you expected, contact Release of Information in the Health Information Management department at [phone] for further assistance in locating additional records.[facility] Allergies Active Allergy Reactions Severity Noted Date Comments Ibuprofen 06/09/2009 Penicillins 06/09/2009 Current Medications Prescription Sig. Disp. Refills [...] " ndle 50mcg BID with meals 15 estrogens, conjugated(+) half a gram per vagina 1 Container 2 Active (PREMARIN) 0.625 mg/g twice per week 16 vaginal creamIndications: Vaginal atrophy, OAB (overactive bladder) FLUTICASONE PROPIONATE Insert into nose as Active (FLONASE NA) directed. CETIRIZINE HCL (ZYRTEC Take by mouth. Active PO) metoprolol XL (TOPROL XL) Take 100 mg by mouth Active 100 mg tablet daily. oxybutynin XL (DITROPAN Take 1 Tab by mouth 90 Tab 0 11/02/19 Active XL) 10 mg daily. 16 tabletIndications: Urge incontinence of urine oxybutynin XL (DITROPAN Take 1 Tab by mouth 90 Tab 3 02/07/20 Active XL) 10 mg daily. 16 tabletIndications: Vaginal atrophy, OAB (overactive bladder) omeprazole DR(+) Take 1 Cap by mouth twice 60 Cap 2 07/26/19 Active (PRILOSEC) 40 mg capsule daily before meals. 17 trospium(+) (SANCTURA) 20 TAKE ONE TABLET BY MOUTH 30 Tab 1 09/10/19 Active mg tablet DAILY 17 trospium(+) (SANCTURA) 20 Take 1 Tab by mouth twice 60 Tab 2 09/25/19 Active mg tablet daily. 17 mirabegron(+) ER Take 1 Tab by mouth daily 30 Tab 3 11/12/19 Active (MYRBETRIQ) 50 mg for 120 days. 17 17 tabletIndications: Indications: URINARY URGE URINARY URGE INCONTINENCE INCONTINENCE Active Problems Problem Noted Date Urge incontinence of urine 06/13/2015 Last Assessment & Plan: Patient's PVR is not elevated today She is symptomatic now due to the urgency I extend to the patient that we have not proceeded with a cystoscopy at but we can start an overactive bladder medication because today she seems to have a normal PVR however will start the medication at a low dose I did explain to patient the risks of developing urinary retention with these medications especially with her history of multiple sclerosis and her disease waxing and waning with time - Plan Initiate trospium 20 mg daily Consider use twice daily if the 20 mg daily has not been sufficient after being on the medication for at least 4-6 weeks Follow-up for cystoscopy Hematuria 06/13/2015 Last Assessment & Plan: Patient has history of hematuria She is also a smoker she also had a pubovaginal sling No prior cystoscopy has been performed Imaging showed mild thickening of the bladder wall however the exact location was not demonstrated in the imaging I expect to the patient that we need to proceed with a cystoscopy to identify the area of thickening as well as possibly identify the site of the bleeding as well as look at where the sling was placed to assess whether there is any kind of erosion or any other abnormality in the urethra - Plan Proceed with cystoscopy Voiding dysfunction 06/13/2015 Last Assessment & Plan: [...] Heartburn 01/19/2015 COPD (chronic obstructive pulmonary disease) ([facility]) 05/18/2012 Diabetes mellitus ([facility]) 05/18/2012 TIA (transient ischemic attack) 05/18/2012 Diarrhea 05/18/2012 Encounters Date Type Specialty Care Team Description 11/15/2016 Refill [facility] Gilles Wilson MD 11/11/2016 Telephone [facility] Gilles Wilson MD General Question 10/03/2016 Telephone [facility] Gilles Wilson MD Medication Question 09/30/2016 Telephone [facility] Gilles Wilson MD General Question 09/27/2016 Telephone [facility] Gilles Wilson MD Results; Referral 09/24/2016 Telephone [facility] Gilles Wilson MD Medication Update 09/23/2016 [facility] Gilles Ness MD Hematuria, unspecified Encounter 09/23/2016 Office Visit [facility] Gilles Wilson MD Hematuria (Primary Dx);Suspected urinary tract infection;Voiding dysfunction 08/21/2016 Refill [facility] Gilles Wilson MD from Last 3 Months Family History Medical History Relation Name Comments Heart Attack Brother Heart Disease Brother Heart Surgery Brother Brain Tumor Father Cancer Father Brain tumor Alzheimer's Maternal Grandfather Cancer-Breast Maternal Grandmother Cancer-Breast Mother Heart problem Mother Cancer Paternal Grandfather Cancer-Lung Paternal Grandfather Heart problem Paternal Grandfather Cancer-Breast Paternal Grandmother Relation Name Status Comments Brother Alive heart surgery Daughter Alive Daughter Alive Father (Age 61 or 62) Maternal Grandfather (Age 90s) Maternal Grandmother (Age 80) Mother heart problems, intestine problems (Age 80) Paternal Grandfather lung camcer, heart problems (Age 70) Paternal Grandmother (Age 80s) Sister Alive Son Alive Social History Tobacco Use Types Packs/Day Years Used Date Former Smoker Cigarettes 40 Quit: 05/29/2015 Smokeless Tobacco: Never Used Tobacco Cessation: Ready to Quit: No; Counseling Given: Yes Alcohol Use Drinks/Week oz/Week Comments No 0 Standard 0.0 drinks or equivalent Sex Assigned at Date Recorded Not on file Last Filed Vital Signs Vital Sign Reading Time Taken Blood Pressure 112/58 09/23/2016 8:09 AM CDT Pulse 65 09/23/2016 8:09 AM CDT Temperature 36.8 C (98.2 F) 06/13/2015 1:02 PM SENIOR ABAP DEVELOPER Respiratory Rate 20 10/25/2015 10:12 AM CDT Oxygen Saturation 96% 09/26/2015 5:00 PM CDT Inhaled Oxygen - - Concentration Weight 70.6 kg (155 lb 9.6 oz) 09/23/2016 8:09 AM CDT Height 162.6 cm (5' 4") 09/23/2016 8:09 AM CDT Body Mass Index 26.71 09/23/2016 8:09 AM CDT Plan of Treatment Health Maintenance Due Date Last Done Comments HEPATITIS C SCREENING 1953 PHYSICAL (COMPREHENSIVE) 1960 EXAM PERTUSSIS VACCINE 1964 TETANUS VACCINE 1970 DILATED EYE EXAM 07/21/1971 FOOT EXAM 07/21/1971 HBA1C 07/21/1971 MICROALBUMIN 07/21/1971 PNEUMONIA VACCINE (DM) 07/21/1971 CERVICAL CANCER SCREENING 07/21/1983 BREAST CANCER SCREENING 1993 COLORECTAL CANCER 07/21/2003 SCREENING SHINGLES VACCINE 2013 INFLUENZA VACCINE 12/06/2016 Results * UA REFLEX CULTURE LABEL (09/23/2016 9:30 AM) Component Value Ref Range UA Reflex Culture LAB LABEL Specimen Performing Laboratory MAIN LAB [address] [place] [address] * URINALYSIS MICROSCOPIC REFLEX TO CULTURE (09/23/2016 9:30 AM) Component Value Ref Range WBCs,UA 0-2 0 - 2 /HPF RBCs,UA 0-2 0 - 3 /HPF Comment,UA Urine submitted for reflex culture if criteria are met:WBC>10, positive nitrite and/or >=1+ leukocyte esterase. If quantity is not sufficient, an addendum will follow. MucousUA TRACE Squamous Epithelial Cells 5-10 0 - 5 Specimen Performing Laboratory MAIN LAB [address] [place] [address] * URINALYSIS DIPSTICK REFLEX TO CULTURE (09/23/2016 9:30 AM) Component Value Ref Range Color,UA STRAW Turbidity,UA CLEAR CLEAR-CLEAR Specific [place]-Urine 1.005 1.003 - 1.035 pH,UA 6.0 5.0 - 8.0 Protein,UA NEG NEG-NEG Glucose,UA NEG NEG-NEG Ketones,UA NEG NEG-NEG Bilirubin,UA NEG NEG-NEG Blood,UA 1+ (A) NEG-NEG Urobilinogen,UA NORMAL NORM-NORMAL Nitrite,UA NEG NEG-NEG Leukocytes,UA NEG NEG-NEG Urine Ascorbic Acid, UA NEG NEG-NEG Specimen Performing Laboratory MAIN LAB [address] [place] [address] * BASIC METABOLIC PANEL (09/23/2016 9:27 AM) Component Value Ref Range Sodium 133 (L) 137 - 147 MMOL/L Potassium 4.3 3.5 - 5.1 MMOL/L Chloride 104 98 - 110 MMOL/L CO2 23 21 - 30 MMOL/L Anion Gap 6 3 - 12 Glucose 88 70 - 100 MG/DL Blood Urea Nitrogen 9 7 - 25 MG/DL Creatinine 0.56 0.4 - 1.00 MG/DL Calcium 9.4 8.5 - 10.6 MG/DL eGFR Non >60 >60 mL/min Comment: The eGFR is not validated for use in drug dosing adjustments. Continue to use estimated creatinine clearance per dosing reference text. Please contact the Clinical Pharmacist for questions. eGFR >60 >60 mL/min Comment: The eGFR is not validated for use in drug dosing adjustments. Continue to use estimated creatinine clearance per dosing reference text. Please contact the Clinical Pharmacist for questions. Specimen Performing Laboratory Blood MAIN LAB [address] [place] [address] * POC URINE DIPSTICK MANUAL READ (09/23/2016 8:21 AM) Component Value Ref Range Urine Glucose POC negative Urine Bilirubin POC negative Urine Ketone POC negative Urine Specific [place] 1.010 POC Urine Blood POC negative Urine PH POC 6.0 Urine Protein POC negative Urine Urobilinogen POC negative Urine Nitrite POC negative Urine Leukocytes POC small + Color,UA yellow Turbidity,UA clear Specimen Performing Laboratory Urine, clean catch - IN CLINIC Urine * IN [facility]BER[facility] POST-VOIDING RESIDUAL URINE&/BLADDER CAP (09/23/2016 8:20 AM) Component Value Ref Range SCAN 61 ML Specimen Performing Laboratory Urine IN CLINIC from Last 3 Months
--- OUTSIDE RECORDS SUMMARY | 2016-11-20 06:13 | XMS REPORT | Encounter Summary ---
Author Author [facility] Organization [facility] Address Unknown Phone Unavailable Care Team Providers Care Commission For The Blind Director Name Role Phone PCP Unavailable Reason for Visit * Reason Comments Medication Update Encounter Details Date Type Department Care Team Description 09/24/2016 Telephone [facility] Gilles Ness MD Medication Update Physicians - OBGYN [address] [place] [address] 5TH FLOOR POD C [phone] [place] [address] [phone] Social History Tobacco Use Types Packs/Day Years [...]
--- OUTSIDE RECORDS SUMMARY | 2016-11-20 06:13 | XMS REPORT | Encounter Summary ---
Author Author [facility] Organization [facility] Address Unknown Phone Unavailable Care Team Providers Care Rn Intern Name Role Phone PCP Unavailable Reason for Visit * Reason Comments General Question Encounter Details Date Type Department Care Team Description 11/11/2016 Telephone [facility] Gilles Ness MD General Question Physicians - OBGYN [address]LO[address] [place] [address] OFFICE BLDG [phone] [place] [address] Social History Tobacco Use Types Packs/Day Years [...]
--- OUTSIDE RECORDS SUMMARY | 2016-11-20 06:13 | XMS REPORT | Encounter Summary ---
Author Author [facility] Organization [facility] Address Unknown Phone Unavailable Care Team Providers Care Operator Prefinish Name Role Phone PCP Unavailable Reason for Visit * Reason Comments General Question Encounter Details Date Type Department Care Team Description 09/30/2016 Telephone [facility] Gilles Ness MD General Question Physicians - OBGYN [address] [place] [address] 5TH FLOOR POD C [phone] [place] [address] [phone] Social History Tobacco Use Types Packs/Day Years [...]
--- OUTSIDE RECORDS SUMMARY | 2016-11-20 06:13 | XMS REPORT | Encounter Summary ---
Author Author [facility] Organization [facility] Address Unknown Phone Unavailable Care Team Providers Care Delivery Truck Driver Heavy Name Role Phone PCP Unavailable Reason for Visit * Reason Comments Medication Refill Encounter Details Date Type Department Care Team Description 11/15/2016 Refill [facility] Gilles Ness MD Physicians - OBGYN [address] [place] [address] 5TH FLOOR POD C [phone] [place] [address] [phone] Social History Tobacco Use Types Packs/Day Years [...]
--- OUTSIDE RECORDS SUMMARY | 2016-11-20 06:13 | XMS REPORT | Encounter Summary ---
Author Author [facility] Organization [facility] Address Unknown Phone Unavailable Care Team Providers Care Business Liaison Manager Name Role Phone PCP Unavailable Reason for Visit * Reason Comments Results Referral Encounter Details Date Type Department Care Team Description 09/27/2016 Telephone [facility] Gilles Ness MD Results; Referral Physicians - OBGYN [address] [place] [address] 5TH FLOOR POD C [phone] [place] [address] [phone] Social History Tobacco Use Types Packs/Day Years [...]
--- OUTSIDE RECORDS SUMMARY | 2016-11-20 06:14 | XMS REPORT | Encounter Summary ---
Author Author [facility] Organization [facility] Address Unknown Phone Unavailable Care Team Providers Care Client Services Manager Name Role Phone PCP Unavailable Reason for Referral * Consult, Test & Treat Status Reason Specialty Diagnoses / Referred By Referred To Procedures Contact Contact New Request Specialty Nephrology Diagnoses Gilles Ness MD Services Hematuria [address] [place] [address] Reason for Visit * Reason Comments Test/procedure Cystoscopy Possible Encounter Details Date Type Department Care Team Description 09/23/2016 Office Visit [facility] Gilles Ness MD Hematuria (Primary Physicians - OBGYN [address] Dx);Suspected urinary [address] tract infection;[place] [address] dysfunction 5TH FLOOR POD C [phone] [place] [address] [phone] Social History Tobacco Use Types Packs/Day Years Used Date Former Smoker Cigarettes 40 Quit: 05/29/2015 Smokeless Tobacco: Never Used Alcohol Use Drinks/Week oz/Week Comments No 0 Standard 0.0 drinks or equivalent Sex Assigned at Date Recorded Not on file as of this encounter Last Filed Vital Signs Vital Sign Reading Time Taken Blood Pressure 112/58 09/23/2016 8:09 AM CDT Pulse 65 09/23/2016 8:09 AM CDT Temperature - - Respiratory Rate - - Oxygen Saturation - - Inhaled Oxygen - - Concentration Weight 70.6 kg (155 lb 9.6 oz) 09/23/2016 8:09 AM CDT Height 162.6 cm (5' 4") 09/23/2016 8:09 AM CDT Body Mass Index 26.71 09/23/2016 8:09 AM CDT in this encounter Progress Notes * Gilles Ness MD - 09/23/2016 9:08 AM CDT Formatting of this note may be different from the original. CHIEF COMPLAINT: Chief Complaint Patient presents with Test/procedure Cystoscopy Possible Nara Huizar is a 61 y.o., female who presents for follow up The patient has had history of hematuria and and was evaluated last year underwent a cystoscopy with no evidence of any damage to the bladder or urethra from a prior pelvic surgery The patient had undergone a CT scan and that was suggestive of mild thickening of the bladder wall She is a smoker No prior nephrology assessment has been performed The patient is on multiple medications for blood pressure management Patient also has overactive bladder and we tried to use of trospium last visit however she reported that it did not help improve her bladder function and she persisted in having overactive bladder symptoms Note that this patient has had a prior sling placed in a previous cystoscopy there was no evidence of any mesh exposure She already had urodynamics performed by an outside physician that did not suggest obstruction ALLERGIES: Ibuprofen and Pcn MEDICATIONS: Current Outpatient Rx Name Route Sig Dispense Refill alendronate (FOSAMAX) 70 mg tablet Oral Take 70 mg by mouth every 7 days. ALPRAZolam (XANAX) 1 mg tablet Oral Take 1 mg by mouth as Needed. apixaban (ELIQUIS) 5 mg tab tablet Oral Take 5 mg by mouth twice daily. ARIPiprazole (ABILIFY) 10 mg tablet Oral Take 10 mg by mouth daily. budesonide/formoterol (SYMBICORT) 160/4.5 mcg HFAA inhalation Inhalation Inhale 2 Puffs by mouth daily. CETIRIZINE HCL (ZYRTEC PO) Oral Take by mouth. colestipol (COLESTID) 1 gram tablet Oral Take 1 g by mouth Three Times Daily. Desvenlafaxine (PRISTIQ) 100 mg Tb24 Oral Take by mouth daily. digoxin (LANOXIN) 125 mcg tablet Oral Take 0.125 mg by mouth daily. diphenoxylate/atropine (LOMOTIL) 2.5/0.025 mg tablet Oral Take 2 Tabs by mouth as Needed for Diarrhea. donepezil (ARICEPT) 10 mg tablet Oral Take 10 mg by mouth At Bedtime Daily. estrogens, conjugated(+) (PREMARIN) 0.625 mg/g vaginal cream half a gram per vagina twice per week 1 Container 2 FLUTICASONE PROPIONATE (FLONASE NA) Nasal Insert into nose as directed. gabapentin (NEURONTIN) 600 mg tablet Oral Take 1,200 mg by mouth three times daily. memantine,+, (NAMENDA) 10 mg tablet Oral Take 10 mg by mouth Twice Daily. metoprolol XL (TOPROL XL) 100 mg tablet Oral Take 100 mg by mouth daily. Needle (Disp) 25 G 25 x 5/8 " ndle To inject octreotide 50mcg BID with meals 60 Each 12 nitroglycerin (NITROSTAT) 0.[address] 0.4 mg under tongue every 5 minutes as needed for Chest Pain. octreotide (SANDOSTATIN) 50 mcg/mL injection Subcutaneous Inject 1 mL into area(s) as directed twice daily with meals. 60 mL 1 Omalizumab (XOLAIR) 150 mg SolR Subcutaneous Inject 150 mg into area(s) as directed every [address](+) (PRILOSEC) 40 mg capsule Oral Take 1 Cap by mouth twice daily before meals. 60 Cap 2 other medication 1 Dose. 3L/NC home oxygen oxybutynin XL (DITROPAN XL) 10 mg tablet Oral Take 1 Tab by mouth daily. 90 Tab 3 oxybutynin XL (DITROPAN XL) 10 mg tablet Oral Take 1 Tab by mouth daily. 90 Tab 0 oxyCODONE (ROXICODONE) 5 mg tablet Oral Take 5 mg by mouth every 6 hours as needed for Pain primidone (MYSOLINE) 250 mg tablet Oral Take 250 mg by mouth every 8 hours. Quetiapine (SEROQUEL XR) 400 mg Tb24 Oral Take 400 mg by mouth Daily. ramelteon,+, (ROZEREM) 8 mg Tab Oral Take 8 mg by mouth At Bedtime Daily. ropinirole (REQUIP) 2 mg tablet Oral Take 2 mg by mouth At Bedtime Daily. simvastatin (ZOCOR) 20 mg tablet Oral Take 20 mg by mouth At Bedtime Daily. Syringe (Disposable) 1 mL syrg To inject octreotide 50 mcg BID with meals 60 Syringe 12 Dispense as written. tiotropium (SPIRIVA) 18 mcg capsule for inhaler Inhalation Inhale 18 mcg by mouth daily. trospium(+) (SANCTURA) 20 mg tablet TAKE ONE TABLET BY MOUTH DAILY 30 Tab 1 Past Medical History Diagnosis Date Acid reflux Anxiety disorder Arthritis Asthma Depression Heart disease On supplemental oxygen therapy 3L/NC Generalized headaches Hyperlipemia Irritable bowel disease Alzheimer disease 2005 Irritable bowel syndrome with diarrhea Stroke (HCC) Thyroid disorder Urinary tract infection Dyslipidemia DM (diabetes mellitus) (HCC) Colon polyps Past Surgical History Procedure Laterality Date Hx cervical fusion 2014 has had a total of 4 revisions per patient, last one in 2014 Colonoscopy [place] Hx heart catheterization 2012 Hx cholecystectomy 1973 Hx appendectomy 1973 Hx tubal ligation 1981 Bladder surgery Pr sigmoidoscopy flx dx w/collj spec br/wa if pfrmd N/A 09/26/2015 SIGMOIDOSCOPY DIAGNOSTIC to rule out ulcerative colitis. performed by Edgardo Torres MD at [facility] Pr sigmoidoscopy flx w/biopsy single/multiple 09/26/2015 SIGMOIDOSCOPY BIOPSY performed by Edgardo Torres MD at [facility] Epidural block Family History Problem Relation Age of Onset Celiac Disease Neg Hx Cancer-Colon Neg Hx Colon Polyps Neg Hx Cancer-Breast Mother Heart problem Mother Brain Tumor Father Cancer Father 65 Brain tumor Heart Attack Brother Heart Disease Brother Heart Surgery Brother Cancer-Breast Maternal Grandmother Alzheimer's Maternal Grandfather Cancer-Breast Paternal Grandmother Cancer Paternal Grandfather Heart problem Paternal Grandfather Cancer-Lung Paternal Grandfather Social History Substance Use Topics Smoking status: Former Smoker -- 42 years Types: Cigarettes Quit date: 05/29/2015 Smokeless tobacco: Never Used Alcohol Use: No OBJECTIVE: Physical Examination: General appearance/Vital Signs: BP 112/58 mmHg | Pulse 65 | Ht 162.6 cm (64") | Wt 70.58 kg (155 lb 9.6 oz) | BMI 26.70 kg/m2, not in acute distress, well groomed Eyes: Sclera white, no nystagmus Ears/Nose/Throat: Lips and gums appear normal,adequate hearing ability , Nose tip and body/base visually appearing without lesions Psychiatric / Mental status: oriented to time, place and person; affect and mood appropriate; normal interaction Cardiovascular / Peripheral vascular system: no prominent varicose veins involving the LE, no cyanosis, no visible edema in LE Chest / Respiratory: normal respiratory effort, unlabored breathing Musculoskeletal / Extremities: walking with normal gait, normal joint mobility noted visibly in LE bilat Pelvic: - Ext. Genitalia - No visible lesions noted involving the labia majora or minora , normal clitoral size noted, no lesions noted noted involving the clitoris - Urethra: midline, non-erythematous, no prolapse seen - Vagina: atrophic Urinalysis Leuks - Nitrites - RBC/Heme +++ Urination PVR (ml) 35 IMPRESSION/PLAN/FOLLOWUP: ICD-9-CM ICD-10-CM 1. Hematuria 599.70 R31.9 URINALYSIS MICROSCOPIC REFLEX TO CULTURE POC URINE DIPSTICK MANUAL READ AMB REFERRAL TO NEPHROLOGY BASIC METABOLIC PANEL 2. Suspected urinary tract infection 599.0 N39.0 POC URINE DIPSTICK MANUAL READ 3. Voiding dysfunction 599.9 N39.8 [place] AMBERLY POST-VOIDING RESIDUAL URINE&/BLADDER CAP Due to the increased amount of RBCs noted on UA today and a normal pelvic examination except for vaginal atrophy I suggested that we reevaluate her urethra especially with a history of her having prior evidence of thickening of the wall of the bladder and her being a smoker, and accordingly we elected to proceed with a cystoscopy that was normal once again today I suggested to the patient that we will be proceeding with performing a renal panel for her as well as sending urine for cytology as well as microscopy I also suggested the patient that I will refer her to nephrology and an order was placed Regarding her overactive bladder the patient had been on trospium and reported that it did not give her significant improvement Postvoid residual was reassuring overall I did suggest to the patient that we can consider the use of beta sympathomimetics however with her blood pressure medications and control I suggested that we have nephrology attempt to her first and then after that if the workup is negative we can consider ordering a beta sympathomimetics try to help her with her bladder management I did briefly discuss the option of sacral neuromodulation with the patient however I did not discuss Botox with this patient at this point intentionally in order to avoid any manipulation of the bladder itself Future Appointments Date Time Provider Department Center 03/24/2017 8:00 AM Gilles Ness MD [email or web address] None Total face to face time more than 20 min spent with the patient for retrieving information, questioning and discussion regarding diagnosis/management/ therapeutic options. Detailed explanation regarding the diagnosis/treatment options were given with questions regarding these options answered in details. Counseling provided involved more than 50% of the time spent with the patient Pertinent Review of Systems: - General ROS: Denies recent weight change above 10 pounds, positive for malaise - HEENT ROS: Denies blurring of vision. Denies double vision, Denies glaucoma, Denies dry eyes - Cardiovascular ROS: Denies chest pain. Denies palpitations currently. Denies orthopnea - Respiratory ROS: Denies shortness of breath, Denies cough, Denies wheezing currently - Gastrointestinal ROS: Denies constipation, Denies gastric reflux, Denies blood in stool, Denies diarrhea, Denies Irritable bowel syndrome, Denies nausea , Denies vomiting, Denies abdominal pain - Endocrine ROS: Denies polydipsia, Denies excessive sweating. Denies hot flashes. Denies Thyroid disease - Hematological and Lymphatic ROS: Denies easy bruisability , Denies current anemia, Denies adenopathy in the inguinal area - Neurological ROS: Denies syncope, Denies numbness in lower extremities, Denies neuropathy. Denies shooting pain down the legs, Denies shooting pain in the lower back, Denies low back pain - Musculoskeletal ROS: Denies Joint pain. Denies Edema in lower extremities. Denies fibromyalgia - Psychological ROS: Denies depression, Denies anxiety, Denies thoughts of suicide, Denies thoughts of homicide, Denies recent seizure, Denies syncope - Dermatological ROS: Denies eczema and skin rashes in the groin area and other sites * Gilles Ness MD - 09/23/2016 9:04 AM CDT Formatting of this note may be different from the original. Procedure Note: Patient name: Nara Huizar Date of : 1955 September 23, 2016 CHIEF COMPLAINT: Chief Complaint Patient presents with Test/procedure Cystoscopy Possible Procedure: Diagnostic cystourethroscopy Surgeon: Dr. Gilles Ness Anesthesia : Topical lidocaine Indications for Procedure: Nara Huizar is a 61 y.o. year old female with a history of 1. Hematuria URINALYSIS MICROSCOPIC REFLEX TO CULTURE POC URINE DIPSTICK MANUAL READ AMB REFERRAL TO NEPHROLOGY BASIC METABOLIC PANEL 2. Suspected urinary tract infection POC URINE DIPSTICK MANUAL READ 3. Voiding dysfunction [place] AM[place] POST-VOIDING RESIDUAL URINE&/BLADDER CAP presently in for cystourethroscopy. risks, benefits, complications, treatment options, and expected outcomes were discussed with the patient. The patient concurred with the proposed plan, giving informed consent. There are no contraindications to the procedure. Procedure details: The patient was taken to the cystoscopy suite and a time out was taken to confirm the patient's identity and procedure. The cystourethroscopy was perfomed today after ten minutes of application of the LOCAL anethesietic (5ml of lidocaine jelly) injected into the urethra/bladder ( after prepping the urethra with Chlorhexidine Scrub). The patient was placed in lithotomy position, prepped with Chlorhexidine Scrub, and draped in the usual sterile fashion. A 15.5 Fr. sheath flexible digital cystoscope was used to inspect both the urethra and bladder with sterile water infusion. Findings: - Urethra: Normal without strictures and without mucosal lesions. No inflammation, diverticulum, or other abnormality noted. - Bladder: Normal mucosa No evidence of inflammation, stones, neoplasia, bladder diverticulum, trabeculations, other abnormalities of the base, back wall, lateral ricketts, and dome of the bladder. Bladder trigone was seen and no abnormalities noted. - Ureteral orifices: Seen bilaterally in the appropriate location. Ureteral spill indetified bilaterally Complications: None Estimated blood loss: None Medications: No medications were given during the cytoscopy procedure Specimens: None Disposition: Stable condition. Ciprofloxacin 500 mg orally was ordered and the patient received the dose in the office prior to the end of the visit, so as to help reduce any risk of UTI following the procedure. She was also informed of the likelihood of irritation of the urethra for the next 24 hrs. She was asked to contact our office if it persists or she senses that she has developed a UTI. 8 in this encounter Plan of Treatment Name Priority Associated Diagnoses Order Schedule CYSTOSCOPY Routine Hematuria Ordered: 09/23/2016 Name Priority Associated Diagnoses Order Schedule AMB REFERRAL TO NEPHROLOGY Routine Hematuria Ordered: 09/23/2016 as of this encounter Results * BASIC METABOLIC PANEL (09/23/2016 9:27 AM) [...] Pharmacist for questions. Specimen Performing Laboratory Blood [facility] [address] [place] [address] * POC URINE DIPSTICK MANUAL READ (09/23/2016 8:21 AM) Component Value Ref Range Urine Glucose POC negative Urine Bilirubin POC negative Urine Ketone POC negative Urine Specific [place] 1.010 POC Urine Blood POC negative Urine PH POC 6.0 Urine Protein POC negative Urine Urobilinogen POC negative Urine Nitrite POC negative Urine Leukocytes POC small + Color,UA yellow Turbidity,UA clear Specimen Performing Laboratory Urine, clean catch - IN CLINIC Urine * [place] AMBERLY POST-VOIDING RESIDUAL URINE&/BLADDER CAP (09/23/2016 8:20 AM) Component Value Ref Range SCAN 61 ML Specimen Performing Laboratory Urine IN CLINIC in this encounter Visit Diagnoses Diagnosis Hematuria - Primary Hematuria, unspecified Suspected urinary tract infection Voiding dysfunction Unspecified disorder of urethra and urinary tract in this encounter
--- OUTSIDE RECORDS SUMMARY | 2016-11-20 06:14 | XMS REPORT | Encounter Summary ---
Author Author [facility] Organization [facility] Address Unknown Phone Unavailable Care Team Providers Care Senior Mechanical Designer Name Role Phone PCP Unavailable Reason for Visit * Reason Comments Medication Refill Encounter Details Date Type Department Care Team Description 08/21/2016 Refill [facility] Gilles Ness MD Physicians - OBGYN [address] [place] [address] 5TH FLOOR POD C [phone] [place] [address] [phone] Social History Tobacco Use Types Packs/Day Years [...]
--- OUTSIDE RECORDS SUMMARY | 2016-11-20 06:14 | XMS REPORT | Encounter Summary ---
Author Author [facility] Organization [facility] Address Unknown Phone Unavailable Care Team Providers Care Seafood Farmer Name Role Phone PCP Unavailable Encounter Details Date Type Department Care Team Description 09/23/2016 [facility] Gilles eNss MD Hematuria, unspecified Encounter [address] [place] [address] [address] [place] [address] [phone] Social History Tobacco Use Types Packs/Day Years Used Date Former Smoker Cigarettes 40 Quit: 05/29/2015 Smokeless Tobacco: Never Used Alcohol Use Drinks/Week oz/Week Comments No 0 Standard 0.0 drinks or equivalent Sex Assigned at Date Recorded Not on file as of this encounter Medications at Time of Discharge Medication Sig. Disp. Refills Start Date End Date alendronate (FOSAMAX) 70 Take 70 mg by mouth every mg tablet 7 days. ALPRAZolam (XANAX) 1 mg Take 1 mg by mouth as tablet Needed. apixaban (ELIQUIS) 5 mg Take 5 mg by mouth twice tab tablet daily. ARIPiprazole (ABILIFY) 10 Take 10 mg by mouth mg tablet daily. budesonide/formoterol Inhale 2 Puffs by mouth (SYMBICORT) 160/4.5 mcg daily. HFAA inhalation CETIRIZINE HCL (ZYRTEC Take by mouth. PO) colestipol (COLESTID) 1 Take 1 g by mouth Three gram tablet Times Daily. Desvenlafaxine (PRISTIQ) Take by mouth daily. 100 mg Tb24 digoxin (LANOXIN) 125 mcg Take 0.125 mg by mouth tablet daily. diphenoxylate/atropine Take 2 Tabs by mouth as (LOMOTIL) 2.5/0.025 mg Needed for Diarrhea. tablet donepezil (ARICEPT) 10 mg Take 10 mg by mouth At tablet Bedtime Daily. estrogens, conjugated(+) half a gram per vagina 1 Container 2 2015 (PREMARIN) 0.625 mg/g twice per week vaginal creamIndications: Vaginal atrophy, OAB (overactive bladder) FLUTICASONE PROPIONATE Insert into nose as (FLONASE NA) directed. gabapentin (NEURONTIN) Take 1,200 mg by mouth 600 mg tablet three times daily. memantine,+, (NAMENDA) 10 Take 10 mg by mouth Twice mg tablet Daily. metoprolol XL (TOPROL XL) Take 100 mg by mouth 100 mg tablet daily. Needle (Disp) 25 G 25 x To inject octreotide 60 Each 12 01/27/2015 5/8 " ndle 50mcg BID with meals nitroglycerin (NITROSTAT) Place 0.4 mg under tongue 0.4 mg tablet every 5 minutes as needed for Chest Pain. octreotide (SANDOSTATIN) Inject 1 mL into area(s) 60 mL 1 01/20/2015 50 mcg/mL injection as directed twice daily with meals. Omalizumab (XOLAIR) 150 Inject 150 mg into mg SolR area(s) as directed every [address](+) Take 1 Cap by mouth twice 60 Cap 2 07/25/2016 (PRILOSEC) 40 mg capsule daily before meals. other medication 1 Dose. 3L/NC home oxygen oxybutynin XL (DITROPAN Take 1 Tab by mouth 90 Tab 3 02/07/2016 XL) 10 mg daily. tabletIndications: Vaginal atrophy, OAB (overactive bladder) oxybutynin XL (DITROPAN Take 1 Tab by mouth 90 Tab 0 11/02/2015 XL) 10 mg daily. tabletIndications: Urge incontinence of urine oxyCODONE (ROXICODONE) 5 Take 5 mg by mouth every mg tablet 6 hours as needed for Pain primidone (MYSOLINE) 250 Take 250 mg by mouth mg tablet every 8 hours. Quetiapine (SEROQUEL XR) Take 400 mg by mouth 400 mg Tb24 Daily. ramelteon,+, (ROZEREM) 8 Take 8 mg by mouth At mg Tab Bedtime Daily. ropinirole (REQUIP) 2 mg Take 2 mg by mouth At tablet Bedtime Daily. simvastatin (ZOCOR) 20 mg Take 20 mg by mouth At tablet Bedtime Daily. Syringe (Disposable) 1 mL To inject octreotide 50 60 Syringe 12 2014 syrg mcg BID with meals tiotropium (SPIRIVA) 18 Inhale 18 mcg by mouth mcg capsule for inhaler daily. trospium(+) (SANCTURA) 20 TAKE ONE TABLET BY MOUTH 30 Tab 1 2016 mg tablet DAILY as of this encounter Plan of Treatment Not on fileas of this encounter Results * UA REFLEX CULTURE LABEL (09/23/2016 9:30 AM) Component Value Ref Range UA Reflex Culture LAB LABEL Specimen Performing Laboratory MAIN LAB [address] [place] [address] * URINALYSIS MICROSCOPIC REFLEX TO CULTURE (09/23/2016 [...] 5 Specimen Performing Laboratory MAIN LAB [address] [place] [address] * URINALYSIS DIPSTICK REFLEX TO CULTURE (09/23/2016 9:30 AM) Component Value Ref Range Color,UA STRAW Turbidity,UA CLEAR CLEAR-CLEAR Specific [place]-Urine 1.005 1.003 - 1.035 pH,UA 6.0 5.0 - 8.0 Protein,UA NEG NEG-NEG Glucose,UA NEG NEG-NEG Ketones,UA NEG NEG-NEG Bilirubin,UA NEG NEG-NEG Blood,UA 1+ (A) NEG-NEG Urobilinogen,UA NORMAL NORM-NORMAL Nitrite,UA NEG NEG-NEG Leukocytes,UA NEG NEG-NEG Urine Ascorbic Acid, UA NEG NEG-NEG Specimen Performing Laboratory MAIN LAB [address] [place] [address] * BASIC METABOLIC PANEL (09/23/2016 9:27 AM) [...] Performing Laboratory Blood [facility] [address] [place] [address] in this encounter Visit Diagnoses Diagnosis Hematuria Hematuria, unspecified in this encounter Admitting Diagnoses Diagnosis Hematuria, unspecified in this encounter
[2016-11-20] MEDS ORDERED: NS (IVPB) 50 ML ONE (06:21)
[2016-11-20] MEDS ORDERED: CLINDAMYCIN 600 MG/4ML (CLEOCIN) VIAL ONE (06:21)
[2016-11-20] MEDS ORDERED: LIDOCAINE PF 2% 5 ML (XYLOCAINE) VIAL ONE (06:40)
[2016-11-20] MEDS ORDERED: SEVOFLURANE (ULTANE) 15 ML INHAL SOLN ONE ×3 (06:40→08:03)
[2016-11-20] MEDS ORDERED: MIDAZOLAM 2 MG/2 ML (VERSED) VIAL ONE (06:40)
[2016-11-20] MEDS ORDERED: fentaNYL INJECTION 100 MCG/2 ML AMP ONE (06:40)
[2016-11-20] MEDS ORDERED: proPOfol 200 MG/20 ML (DIPRIVAN) VIAL IV ONE (06:40)
[2016-11-20] MEDS ORDERED: LACTATED RINGERS 1,000 ML IV PRN (06:43)
[2016-11-20] MEDS ORDERED: RT-ALBUTEROL SULF 2.5 MG/3 ML PRE-MIX VIAL INH ONE (06:45)
[2016-11-20] MEDS ORDERED: CATHETER FLUSH 10 ML SYR IV PRN (06:45)
[2016-11-20] MEDS ORDERED: ONDANSETRON 4 MG/2 ML (SDV) Z0FRAN ONE (06:45)
[2016-11-20] MEDS ORDERED: CLINDAMYCIN 600 MG/NS 50 ML IVPB IV ONE ×2 (06:45)
[2016-11-20] MEDS ORDERED: ARIP5TAB12 PO (06:49)
[2016-11-20] MEDS ORDERED: RIFA550T PO (06:49)
[2016-11-20] MEDS ORDERED: ARPZ20T PO (06:50)
[2016-11-20] MEDS ORDERED: morphine PF (DURAMORPH) 10 MG/10 ML AMP ONE (07:07)
[2016-11-20] MEDS ORDERED: BUPIVACAINE 0.25% 30 ML (SENSORCAINE) VIAL ONE (07:07)
--- OUTSIDE RECORDS SUMMARY | 2016-11-20 07:10 | XMS REPORT ---
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 Name Role Phone Ivelisse Bruce PCP Allergies and Adverse Reactions Name Reaction Notes ibuprofen PENICILLINS Plan of Treatment Planned Activity Comments Planned Date Planned Time Plan/Goal IM Injection 08/02/2014 12:00 AM *Injection,Subcutaneous/ Intramuscular 08/02/2014 12:00 AM Medications Active Name Start Date Estimated Completion Date SIG Comments Lomotil 2.5-0.025 mg oral tablet take 2 tablets (5 mg) by oral route 4 times per day as needed Nitrostat 0.4 mg sublingual tablet, sublingual place 1 tablet (0.4 mg) by buccal route at the first sign of an attack; no more than 3 tabs are recommended within a 15 minute period. Singulair 10 mg oral tablet take 1 tablet (10 mg) by oral route once daily in the evening Spiriva with HandiHaler 18 mcg inhalation capsule, w/inhalation device inhale 1 capsule (18 mcg) by inhalation route once daily Symbicort 160-4.5 mcg/actuation inhalation HFA aerosol inhaler inhale 2 puffs by inhalation route 2 times per day in the morning and evening Zocor 20 mg oral tablet take 1 tablet (20 mg) by oral route once daily in the evening Pristiq 100 mg oral tablet extended release 24 hr take 1 tablet (100 mg ) by oral route once daily donepezil 10 mg oral tablet take 1 tablet (10 mg) by oral route once daily in the evening Eliquis 5 mg oral tablet take 1 tablet (5 mg) by oral route 2 times per day Namenda 10 mg oral tablet take 1 tablet (10 mg) by oral route q hs ropinirole 2 mg oral tablet 1 tab po q hs gabapentin 800 mg oral tablet take 1 tablet by oral route 3 times a day methocarbamol 750 mg oral tablet take 1 tablet by oral route 3 times a day primidone 250 mg oral tablet take 1 tablet (250 mg) by oral route 3 times per day for maintenance tramadol 50 mg oral tablet take 2 tablets by oral route 3 times a day Topamax 50 mg oral tablet take 1 tablet (50 mg) by oral route 2 times per day Botox 200 unit injection recon soln 10/21/2016 01/19/2017 INject 155 units into 31 sites as per migraine prophylaxis protocol. Injection done by experienced provider. Name Start Date Expiration Date SIG Comments Lortab 7.5-500 mg oral tablet 11/04/2011 12/04/2011 take 1 tablet by oral route daily octreotide acetate 50 mcg/mL injection solution 02/06/2012 03/07/2012 inject 1 milliliter (50 mcg) by subcutaneous route 3 times per day Valium 2 mg oral tablet 02/25/2012 03/26/2012 take 1 tablet by oral route 3 times a day as needed for 30 days muscle spasm divalproex 500 mg oral tablet extended release 24 hr 06/30/2012 10/28/2012 take 1 tablet (500 mg) by oral route daily for 30 days Botox 200 unit injection recon soln 07/07/2012 10/05/2012 INject 5 units each into 31 sites as designated by FDA for migraine prophylaxis--Injected by 155b Units today. Need 1 Vial 1 [id number] hydrocodone-acetaminophen 7.5-500 mg oral tablet 08/06/2012 09/05/2012 take 1 tablet by oral route every 4-6 hours as needed for pain for 30 days sumatriptan succinate 6 mg/0.5 mL subcutaneous cartridge 08/19/2012 09/18/2012 INJECT 1 DOSE (6 MG/0.5 ML) - MAY REPEAT IN 1 HOUR IF PAIN RETURNS OR INCREASES IN SEVERITY (MAX OF 2 DOSES IN 24 HOURS) Fiorinal-Codeine #3 55-84-109-40 mg oral capsule 04/30/2012 05/11/2012 take 1 capsule (12-76-980-40 mg) by oral route every 4 hours for 30 days Imitrex STATdose Kit Refill 6 mg/0.5 mL subcutaneous cartridge 02/06/20122012 inject 0.5 milliliter (6 mg/0.5 mL) by subcutaneous route once for 30 days Ativan 0.5 mg oral tablet 10/05/2013 11/04/2013 take 1 tablet (0.5 mg) by oral route 3 times per day for 30 days Imitrex 25 mg oral tablet 12/19/2014 03/19/2015 take 1 tablet (25 mg) by oral route once with fluids as early as possible after the onset of a migraine attack;may repeat after 2 hours if h Discontinued Name Start Date Discontinued Date SIG Comments simvastatin 20 mg oral tablet 06/03/2012 take 1 tablet (20 mg) by oral route once daily in the evening naproxen 500 mg oral tablet 09/21/2013 take 1 tablet (500 mg) by oral route 2 times per day with food donepezil 10 mg oral tablet 12/01/2012 take 1 tablet (10 mg) by oral route once daily in the evening Lexapro 20 mg oral tablet 12/01/2012 take 2 tablets by oral route daily Actos 45 mg oral tablet 06/03/2012 take 1 tablet (45 mg) by oral route once daily fludrocortisone 0.1 mg oral tablet 06/03/2012 take 1 tablet (0.1 mg) by oral route once daily Namenda 10 mg oral tablet 09/21/2013 take 1 tablet (10 mg) by oral route 2 times per day Seroquel 400 mg oral tablet 06/03/2012 take 1 tablet (400 mg) by oral route once daily gabapentin 300 mg oral capsule 09/21/2013 take 1 capsule by oral route daily trihexyphenidyl 2 mg oral tablet 12/01/2012 take one-half tablet (1 mg) by oral route 2 times per day Xanax 0.5 mg oral tablet 06/03/2012 take 1 tablet by oral route 2 times a day ProAir HFA 90 mcg/actuation inhalation HFA aerosol inhaler 09/21/2013 inhale 2 puffs by inhalation route every 6 hours chlorzoxazone 500 mg oral tablet 12/01/2012 take 1 tablet by oral route 2 times a day opium tincture 10 mg/mL (morphine) oral tincture 06/03/2012 1 to 4 drops 30 min. before meals TID Lasix 20 mg oral tablet 12/01/2012 take 1 tablet (20 mg) by oral route once daily potassium 99 mg oral tablet 12/01/2012 take 1 tablet by oral route daily Bactrim 400-80 mg oral tablet 06/03/2012 take 1 tablet by oral route 4 times a day tizanidine 2 mg oral capsule 03/12/2012 05/04/2012 take 1 capsule by oral route every 6 hours for 30 days baclofen Oral 12/01/2012 Carafate 1 gram oral tablet 09/21/2013 take 1 tablet (1 gram) by oral route 4 times per day on an empty stomach 1 hour before meals and at bedtime ropinirole 2 mg oral tablet 12/01/2012 take 1 tablet (2 mg) by oral route 1 -3 hours before bedtime pioglitazone 45 mg oral tablet 12/01/2012 take 1 tablet (45 mg) by oral route once daily aspirin 81 mg oral tablet,chewable 09/21/2013 chew 1 tablet (81 mg) by oral route once daily Dexilant 60 mg oral capsule,biphase delayed releas 12/01/2012 take 1 capsule (60 mg) by oral route once daily Depakote 500 mg oral tablet,delayed release (DR/EC) 06/08/2012 06/08/2012 take 1 tablet (500 mg) by oral route 3 times per day for 30 days divalproex 500 mg oral tablet,delayed release (DR/EC) 07/30/2012 12/01/2012 take 1 tablet by oral route daily for 90 days Relpax 40 mg oral tablet 10/16/2012 05/31/2013 take 1 tablet (40 mg) by oral route ; if headache returns, the dose may be repeated after 2 hours, but no more than two doses should be given within a 24-hour period. for 90 days Actos 45 mg oral tablet 09/21/2013 take 1 tablet (45 mg) by oral route once daily Ambien 5 mg oral tablet 09/21/2013 take 1 tablet (5 mg) by oral route once daily at bedtime Aricept 10 mg oral tablet 09/21/2013 take 1 tablet (10 mg) by oral route once daily in the evening Daliresp 500 mcg oral tablet 09/21/2013 take 1 tablet (500 mcg) by oral route once daily Depakote ER 500 mg oral tablet extended release 24 hr 06/07/2013 take 1 tablet (500 mg) by oral route twice a day Pristiq 50 mg oral tablet extended release 24 hr 09/21/2013 take 1 tablet ( 50 mg) by oral route once daily Protonix 40 mg oral tablet,delayed release (DR/EC) 04/10/2015 take 1 tablet (40 mg) by oral route 2 times per day temazepam 30 mg oral capsule 05/31/2013 take 1 capsule (30 mg) by oral route once daily at bedtime as needed Prednisone orally 10 mg 05/31/2013 1 tab daily with food x 3 mo.per lung specialist Topamax 50 mg oral tablet 04/12/2013 05/31/2013 take 2 by oral route 2 times a day for 30 days as directed on mina simon given to patient Fioricet with Codeine 23-362-78-30 mg oral capsule 04/13/2013 08/03/2013 take 1 capsule by oral route every 4 hours as needed not to exceed 6 capsules per 24hrs for 30 days amiodarone 200 mg oral tablet 10/29/2013 take 1 tablet (200 mg) by oral route once daily divalproex 250 mg oral tablet,delayed release (DR/EC) 08/03/2013 10/29/2013 take 1 tablet (250 mg) by oral route once daily for 90 days sumatriptan succinate 6 mg/0.5 mL subcutaneous cartridge 08/19/2013 09/21/2013 inject 0.5 milliliter (6 mg) by subcutaneous route once; may be repeated 1 hour after the first dose if headache pain returns or increases i Zomig 5 mg oral tablet 08/26/2013 09/21/2013 take 1 tablet (5 mg) by oral route once; if headache returns, the dose may be repeated after 2 hours, not to exceed 10 mg within 24 hours fo Fosamax 70 mg oral tablet 04/10/2015 take 1 tablet (70 mg) by oral route once weekly in the morning, at least 30 min before first food, beverage, or medication of day gabapentin 300 mg oral capsule 10/29/2013 take 1 capsule (300 mg) by oral route 3 times per day Actos 15 mg oral tablet 06/10/2014 take 1 tablet (15 mg) by oral route once daily potassium chloride 10 mEq oral tablet extended release 06/10/2014 take 1 tablet by oral route once daily with food trazodone 150 mg oral tablet 06/10/2014 take 1 tablet (150 mg) by oral route q hs trihexyphenidyl 2 mg oral tablet 04/10/2015 take 1 tablet (2 mg) by oral route 2 times per day methocarbamol 500 mg oral tablet 11/25/2013 take 1 tablet by oral route 3 times per day Multaq 400 mg oral tablet 04/10/2015 take 1 tablet (400 mg) by oral route 2 times per day with morning and evening meals gabapentin 600 mg oral tablet 11/25/2013 take 1 tablet (600 mg) by oral route 3 times per day Problem List Description Status Onset Arthritis unspecified Active Bipolar Disorder Active Diabetes Mellitus, Type II Active Headache Active Bilateral occipital neuralgia Active 11/08/2013 Migraine Active 11/08/2013 Vital Signs Date Time BP-Sys(mm[Hg] BP-Kathleen(mm[Hg]) HR(bpm) RR(rpm) Temp WT HT HC BMI BSA BMI Percentile O2 Sat(%) 11/07/2016 9:27:00 AM 116 mmHg 62 mmHg 64 bpm 16 rpm 97.4 F 155 lbs 64 in 26.61 kg/m2 1.78 m2 95 % 08/08/2016 9:18:00 AM 108 mmHg 66 mmHg 62 bpm 16 rpm 97.1 F 155.6 lbs 96 % 05/09/2016 8:54:00 AM 108 mmHg 80 mmHg 66 bpm 12 rpm 97.3 F 150.25 lbs 64 in 25.7901 kg/m 1.75 m2 96 % 02/08/2016 8:51:00 AM 108 mmHg 74 mmHg 51 bpm 12 rpm 97.7 F 150.25 lbs 64 in 25.79 kg/m2 1.7543 m 96 % 11/17/2015 8:30:00 AM 110 mmHg 64 mmHg 56 bpm 14 rpm 96.6 F 150.25 lbs 64 in 25.7901 kg/m 1.75 m2 98 % 11/09/2015 8:35:00 AM 104 mmHg 62 mmHg 49 bpm 12 rpm 97.4 F 97 % 08/10/2015 9:20:00 AM 142 mmHg 80 mmHg 76 bpm 20 rpm 97.7 F 155 lbs 64 in 26.6054 kg/m 1.78 m2 93 % 04/10/2015 10:23:00 AM 126 mmHg 74 mmHg 76 bpm 20 rpm 97.5 F 157 lbs 64 in 26.95 kg/m2 1.7932 m 02/02/2015 9:46:00 AM 124 mmHg 68 mmHg 76 bpm 18 rpm 97.4 F 140 lbs 62 in 25.6061 kg/m 1.67 m2 01/03/2015 8:37:00 AM 125 mmHg 80 mmHg 84 bpm 18 rpm 98.5 F 132 lbs 64 in 22.66 kg/m2 1.6443 m 10/11/2014 9:34:00 AM 104 mmHg 62 mmHg 76 bpm 18 rpm 98.3 F 150 lbs 64 in 25.7472 kg/m 1.75 m2 08/02/2014 4:02:00 PM 142 mmHg 86 mmHg 74 bpm 18 rpm 96.2 F 149 lbs 64 in 25.58 kg/m2 1.747 m 2014 9:47:00 AM 136 mmHg 82 mmHg 74 bpm 20 rpm 97.4 F 149 lbs 64 in 25.5755 kg/m 1.75 m2 07/19/2014 8:53:00 AM 138 mmHg 82 mmHg 74 bpm 20 rpm 97.1 F 149 lbs 64 in 25.58 kg/m2 1.747 m 07/12/2014 9:27:00 AM 130 mmHg 72 mmHg 78 bpm 16 rpm 97.9 F 148.125 lbs 64 in 25.4253 kg/m 1.74 m2 07/05/2014 9:40:00 AM 122 mmHg 64 mmHg 88 bpm 16 rpm 98.8 F 146 lbs 64 in 25.06 kg/m2 1.7293 m 06/13/2014 3:11:00 PM 140 mmHg 86 mmHg 73 bpm 20 rpm 96.8 F 139 lbs 64 in 23.8591 kg/m 1.69 m2 06/10/2014 9:42:00 AM 142 mmHg 76 mmHg 65 bpm 18 rpm 97 F 141 lbs 64 in 24.20 kg/m2 1.6994 m 05/17/2014 8:53:00 AM 122 mmHg 70 mmHg 88 bpm 18 rpm 97 F 137 lbs 64 in 23.5158 kg/m 1.68 m2 03/25/2014 10:23:00 AM 122 mmHg 80 mmHg 94 bpm 16 rpm 97.9 F 129 lbs 11/25/2013 9:13:00 AM 112 mmHg 64 mmHg 76 bpm 16 rpm 97.1 F 126 lbs 64 in 21.6276 kg/m 1.61 m2 10/29/2013 10:14:00 AM 120 mmHg 60 mmHg 50 bpm 16 rpm 97 F 135.25 lbs 64 in 23.22 kg/m2 1.6644 m 10/05/2013 8:41:00 AM 122 mmHg 68 mmHg 56 bpm 16 rpm 96.4 F 134.375 lbs 64 in 23.0652 kg/m 1.66 m2 09/28/2013 8:32:00 AM 100 mmHg 60 mmHg 66 bpm 16 rpm 96.8 F 133 lbs 64 in 22.83 kg/m2 1.6505 m 08/03/2013 10:00:00 AM 132 mmHg 80 mmHg 78 bpm 18 rpm 97.6 F 137 lbs 64 in 23.5158 kg/m 1.68 m2 05/27/2013 8:19:00 AM 104 mmHg 60 mmHg 74 bpm 18 rpm 97.3 F 138 lbs 11/17/2012 10:04:00 AM 102 mmHg 58 mmHg 78 bpm 16 rpm 96.9 F 144 lbs 64 in 24.7173 kg/m 1.72 m2 09/16/2012 8:48:00 AM 112 mmHg 64 mmHg 74 bpm 16 rpm 97 F 146 lbs 64 in 25.06 kg/m2 1.7293 m 09/02/2012 11:04:00 AM 92 mmHg 50 mmHg 78 bpm 18 rpm 97.7 F 145 lbs 64 in 24.8889 kg/m 1.72 m2 08/19/2012 10:00:00 AM 118 mmHg 64 mmHg 74 bpm 20 rpm 97.5 F 150 lbs 64 in 25.75 kg/m2 1.7528 m 08/06/2012 8:08:00 AM 102 mmHg 60 mmHg 80 bpm 16 rpm 97.8 F 151 lbs 64 in 25.9188 kg/m 1.76 m2 07/15/2012 9:17:00 AM 118 mmHg 68 mmHg 78 bpm 20 rpm 98 F 148 lbs 64 in 25.40 kg/m2 1.7411 m 07/07/2012 8:34:00 AM 124 mmHg 78 mmHg 72 bpm 18 rpm 97.9 F 145 lbs 07/01/2012 11:10:00 AM 132 mmHg 74 mmHg 78 bpm 16 rpm 97.6 F 149 lbs 64 in 25.58 kg/m2 1.747 m 06/03/2012 10:59:00 AM 124 mmHg 70 mmHg 78 bpm 18 rpm 97.2 F 160 lbs 64 in 27.4637 kg/m 1.81 m2 05/21/2012 10:20:00 AM 132 mmHg 70 mmHg 88 bpm 16 rpm 97.5 F 157 lbs 64 in 26.95 kg/m2 1.7932 m 05/06/2012 1:55:00 PM 122 mmHg 70 mmHg 78 bpm 16 rpm 97.7 F 161 lbs 64 in 27.6353 kg/m 1.82 m2 04/14/2012 1:27:00 PM 112 mmHg 70 mmHg 78 bpm 18 rpm 97.6 F 166 lbs 64 in 28.49 kg/m2 1.8439 m 03/26/2012 2:04:00 PM 116 mmHg 64 mmHg 76 bpm 16 rpm 97 F 155 lbs 64 in 26.6054 kg/m 1.78 m2 03/17/2012 9:45:00 AM 112 mmHg 64 mmHg 78 bpm 20 rpm 97.8 F 157 lbs 03/03/2012 1:06:00 PM 152 mmHg 86 mmHg 78 bpm 18 rpm 98.3 F 154 lbs 69 in 22.7416 kg/m 1.84 m2 02/06/2012 10:46:00 AM 100 mmHg 60 mmHg 88 bpm 14 rpm 97.4 F 159 lbs 64 in 27.29 kg/m2 1.8046 m 01/21/2012 8:10:00 AM 142 mmHg 80 mmHg 84 bpm 14 rpm 97.9 F 161 lbs 64 in 27.6353 kg/m 1.82 m2 01/02/2012 9:13:00 AM 112 mmHg 58 mmHg 74 bpm 18 rpm 01/02/2012 8:17:00 AM 122 mmHg 60 mmHg 98 bpm 18 rpm 97.6 F 165 lbs 64 in 28.3219 kg/m 1.8384 m 12/19/2011 8:20:00 AM 112 mmHg 60 mmHg 72 bpm 18 rpm 97.7 F 167 lbs 64 in 28.67 kg/m2 1.85 m2 12/05/2011 8:09:00 AM 126 mmHg 74 mmHg 60 bpm 18 rpm 98.1 F 163 lbs 64 in 27.9786 kg/m 1.8272 m 11/04/2011 10:04:00 AM 122 mmHg 70 mmHg 74 bpm 16 rpm 98.5 F 165 lbs 64 in 28.32 kg/m2 1.84 m2 10/15/2011 8:53:00 AM 132 mmHg 70 mmHg 60 bpm 16 rpm 10/15/2011 8:14:00 AM 96 mmHg 50 mmHg 76 bpm 16 rpm 97.4 F 160 lbs 64 in 27.46 kg/m2 1.81 m2 10/01/2011 10:32:00 AM 118 mmHg 60 mmHg 76 bpm 18 rpm 97.9 F 167 lbs 64 in 28.6652 kg/m 1.8495 m 09/17/2011 10:01:00 AM 114 mmHg 54 mmHg 74 bpm 18 rpm 97.9 F 164 lbs 64 in 28.15 kg/m2 1.83 m2 08/20/2011 9:34:00 AM 132 mmHg 80 mmHg 79 bpm 16 rpm 08/20/2011 8:48:00 AM 132 mmHg 74 mmHg 76 bpm 20 rpm 97.7 F 173 lbs 64 in 29.70 kg/m2 1.88 m2 08/06/2011 9:02:00 AM 122 mmHg 64 mmHg 88 bpm 18 rpm 97.5 F 173 lbs 64 in 29.6951 kg/m 1.8824 m Social History Name Description Comments Tobacco Current every day smoker History of Procedures Date Ordered Description Order Status 01/03/2015 12:00 AM Botox Toxin Type A, 1 unit [id number] Reviewed 01/03/2015 12:00 AM CHEMODENERV MUSC MIGRAINE Reviewed 02/02/2015 12:00 AM Pain Management Reviewed 02/02/2015 12:00 AM Occupational Therapy Consult Reviewed 02/02/2015 12:00 AM Kenalog, Per 10 Mg [facility]#3471-2469-43 Reviewed 02/02/2015 12:00 AM DRAIN/INJ JOINT/BURSA W/O US Reviewed 04/10/2015 12:00 AM Botox Toxin Type A, 1 unit [id number] Reviewed 04/10/2015 12:00 AM CHEMODENERV MUSC MIGRAINE Reviewed 11/17/2015 12:00 AM INJ TRIGGER POINT 1/2 MUSCL Reviewed 08/06/2011 12:00 AM N BLOCK INJ OCCIPITAL Reviewed 08/06/2011 12:00 AM Phenergan 25 Mg Im [facility] [place] [address]-48 (Physiatry) Reviewed 08/06/2011 12:00 AM Toradol 15 Mg,[facility] [place]#[id number] Reviewed 08/20/2011 12:00 AM N BLOCK INJ OCCIPITAL Reviewed 08/20/2011 12:00 AM INJECT TRIGGER POINTS 3/> Reviewed 09/17/2011 12:00 AM INJECT TRIGGER POINTS 3/> Reviewed 09/17/2011 12:00 AM N BLOCK INJ OCCIPITAL Reviewed 10/01/2011 12:00 AM INJECT TRIGGER POINTS 3/> Reviewed 10/15/2011 12:00 AM INJECT TRIGGER POINTS 3/> Reviewed 10/15/2011 12:00 AM Imitrex 6mg [facility] #62276-943-06 Reviewed 10/15/2011 12:00 AM Imitrex, 6mg [facility]#: 9576-3658-56 Reviewed 11/04/2011 12:00 AM INJECT TRIGGER POINTS 3/> Reviewed 11/04/2011 12:00 AM Imitrex 6mg [facility] #14577-447-96 Reviewed 11/04/2011 12:00 AM N BLOCK INJ OCCIPITAL Reviewed 11/04/2011 12:00 AM DRAIN/INJ JOINT/BURSA W/O US Reviewed 12/05/2011 12:00 AM INJECT TRIGGER POINTS 3/> Reviewed 12/05/2011 12:00 AM N BLOCK INJ OCCIPITAL Reviewed 12/19/2011 12:00 AM INJECT TRIGGER POINTS 3/> Reviewed 12/19/2011 12:00 AM Imitrex 6mg [facility] #72616-141-71 Reviewed 12/19/2011 12:00 AM THER/PROPH/DIAG INJ SC/IM Reviewed 12/19/2011 12:00 AM Imitrex, 6mg [facility]#: 6058-2972-27 Reviewed 01/02/2012 12:00 AM INJECT TRIGGER POINTS 3/> Reviewed 01/02/2012 12:00 AM Imitrex 6mg [facility] #90373-329-09 Reviewed 01/02/2012 12:00 AM THER/PROPH/DIAG INJ SC/IM Reviewed 01/02/2012 12:00 AM Imitrex, 6mg [facility]#: 8106-6590-20 Reviewed 01/02/2012 12:00 AM N BLOCK INJ OCCIPITAL Reviewed 01/21/2012 12:00 AM INJECT TRIGGER POINTS 3/> Reviewed 01/21/2012 12:00 AM N BLOCK INJ OCCIPITAL Reviewed 02/06/2012 12:00 AM THER/PROPH/DIAG INJ SC/IM Reviewed 02/06/2012 12:00 AM Imitrex, 6mg [facility]#: 1027-1514-34 Reviewed 02/06/2012 12:00 AM Imitrex 6mg [facility] #46054-792-52 Reviewed 02/06/2012 12:00 AM Therapeutic, prophylactic or diagnostic injection (specify substance or drug); subcutaneous or intramuscular Reviewed 03/03/2012 12:00 AM THER/PROPH/DIAG INJ SC/IM Reviewed 03/03/2012 12:00 AM Imitrex, 6mg [facility]#: 6243-0181-73 Reviewed 03/03/2012 12:00 AM N BLOCK OTHER PERIPHERAL Reviewed 03/03/2012 12:00 AM INJECT TRIGGER POINTS 3/> Reviewed 03/17/2012 12:00 AM THER/PROPH/DIAG INJ SC/IM Reviewed 03/17/2012 12:00 AM Imitrex, 6mg [facility]#: 1883-7605-16 Reviewed 03/17/2012 12:00 AM Norflex, Up to 60 Mg [place]#20045-969-50 Reviewed 03/26/2012 12:00 AM INJECT TRIGGER POINTS 3/> Reviewed 03/26/2012 12:00 AM INJECTION,MARCAINE/BUPIVACAINJ [facility] [address]-21 ([place]unter) Reviewed 03/26/2012 12:00 AM Imitrex 6mg [facility] #91721-936-64 Reviewed 03/26/2012 12:00 AM Norflex, Up to 60 Mg ND#55372-646-94 Reviewed 04/14/2012 12:00 AM THER/PROPH/DIAG INJ SC/IM Reviewed 04/14/2012 12:00 AM Imitrex, 6mg ND#: 9142-0744-25 Reviewed 04/14/2012 12:00 AM THER/PROPH/DIAG INJ SC/IM Reviewed 04/14/2012 12:00 AM Norflex, Up to 60 Mg ND#68375-743-35 Reviewed 04/14/2012 12:00 AM N BLOCK INJ OCCIPITAL Reviewed 04/14/2012 12:00 AM INJECT TRIGGER POINTS 3/> Reviewed 04/14/2012 12:00 AM Bupivicaine, 30 ml [facility]#3450-9240-45 Reviewed 05/06/2012 12:00 AM Bupivicaine, 30 ml [place]#5130-1419-20 Reviewed 05/06/2012 12:00 AM INJECT TRIGGER POINTS 3/> Reviewed 05/06/2012 12:00 AM Norflex, Up to 60 Mg ND#08676-840-69 Reviewed 05/06/2012 12:00 AM Imitrex 6mg [facility] #69548-381-12 Reviewed 05/06/2012 12:00 AM N BLOCK INJ OCCIPITAL Reviewed 05/06/2012 12:00 AM Kenalog, Per 10 Mg [facility]#4138-0717-07 Reviewed 05/21/2012 12:00 AM Truman Chemodenervation muscle(s); muscle(s) innervated by facial Reviewed 05/21/2012 12:00 AM TRUMAN CHEMODENERVATION MUSCLE(S); NECK MUSCLE(S)(EG, FOR SPASMODIC Reviewed 05/21/2012 12:00 AM BOTULINUM TOXIN TYPE A, PER UNIT-Botox [facility] [id number] Huizar Reviewed 06/03/2012 12:00 AM INJECT TRIGGER POINTS 3/> Reviewed 06/03/2012 12:00 AM Bupivicaine, 30 ml [facility]#8250-2211-01 Reviewed 06/03/2012 12:00 AM Imitrex 6mg [facility] #15632-076-60 Reviewed 06/03/2012 12:00 AM Norflex, Up to 60 Mg [facility]#29818-351-50 Reviewed 06/03/2012 12:00 AM THER/PROPH/DIAG INJ SC/IM Reviewed 06/03/2012 12:00 AM Imitrex, 6mg [facility]#: 4556-4041-84 Reviewed 06/03/2012 12:00 AM Norflex, Up to 60 Mg [facility]#92211-724-97 Reviewed 07/01/2012 12:00 AM INJECT TRIGGER POINTS 3/> Reviewed 07/01/2012 12:00 AM Bupivicaine, 30 ml [facility]#4904-7370-76 Reviewed 07/01/2012 12:00 AM N BLOCK INJ OCCIPITAL Reviewed 07/07/2012 12:00 AM THER/PROPH/DIAG INJ SC/IM Reviewed 07/07/2012 12:00 AM Imitrex, 6mg ND#: 6790-2598-65 Reviewed 07/07/2012 12:00 AM Toradol 15 Mg [facility]#4946-1015-64 Reviewed 07/15/2012 12:00 AM INJECT TRIGGER POINTS 3/> Reviewed 07/15/2012 12:00 AM INJECTION,MARCAINE/BUPIVACAINJ [facility] [address]-33 (Hunter) Reviewed 07/15/2012 12:00 AM MASSAGE THERAPY Reviewed 07/15/2012 12:00 AM THER/PROPH/DIAG INJ SC/IM Reviewed 07/15/2012 12:00 AM Imitrex, 6mg [facility]#: 9444-3691-29 Reviewed 07/15/2012 12:00 AM Norflex, Up to 60 Mg [facility]#42190-554-10 Reviewed 07/15/2012 12:00 AM Imitrex 6mg [facility] #83674-014-42 Reviewed 07/15/2012 12:00 AM Norflex, Up to 60 Mg [facility]#83202-275-55 Reviewed 08/06/2012 12:00 AM INJECT TRIGGER POINTS 3/> Reviewed 08/06/2012 12:00 AM N BLOCK INJ OCCIPITAL Reviewed 08/06/2012 12:00 AM THER/PROPH/DIAG INJ SC/IM Reviewed 08/06/2012 12:00 AM Imitrex, 6mg [facility]#: 4243-3214-16 Reviewed 08/06/2012 12:00 AM Norflex, Up to 60 Mg [facility]#02268-965-17 Reviewed 08/19/2012 12:00 AM BOTULINUM TOXIN TYPE A, PER UNIT-Botox [facility] [id number] Huizar Reviewed 08/19/2012 12:00 AM Truman Chemodenervation muscle(s); muscle(s) innervated by facial Reviewed 08/19/2012 12:00 AM TRUMAN CHEMODENERVATION MUSCLE(S); NECK MUSCLE(S)(EG, FOR SPASMODIC Reviewed 08/19/2012 12:00 AM Imitrex 6mg [facility] #59924-984-50 Reviewed 08/19/2012 12:00 AM Norflex, Up to 60 Mg [facility]#48653-563-19 Reviewed 08/19/2012 12:00 AM THER/PROPH/DIAG INJ SC/IM Reviewed 08/19/2012 12:00 AM Imitrex, 6mg [facility]#: 8115-2992-99 Reviewed 08/19/2012 12:00 AM Norflex, Up to 60 Mg [facility]#64450-732-07 Reviewed 09/02/2012 12:00 AM Bupivicaine, 30 ml [facility]#2621-1778-53 Reviewed 09/02/2012 12:00 AM INJECT TRIGGER POINTS 3/> Reviewed 09/02/2012 12:00 AM Imitrex 6mg [facility] #81521-894-82 Reviewed 09/02/2012 12:00 AM Norflex, Up to 60 Mg [facility]#11820-630-90 Reviewed 09/02/2012 12:00 AM Imitrex, 6mg [facility]#: 1477-1029-46 Reviewed 09/16/2012 12:00 AM THER/PROPH/DIAG INJ SC/IM Reviewed 09/16/2012 12:00 AM Norflex, Up to 60 Mg [facility]#74170-346-83 Reviewed 09/16/2012 12:00 AM INJECT TRIGGER POINTS 3/> Reviewed 09/16/2012 12:00 AM Imitrex 6mg [place] #94201-583-23 Reviewed 09/16/2012 12:00 AM Norflex, Up to 60 Mg ND#39407-300-46 Reviewed 11/17/2012 12:00 AM Imitrex 6mg [facility] #79122-900-66 Reviewed 11/17/2012 12:00 AM THER/PROPH/DIAG INJ SC/IM Reviewed 11/17/2012 12:00 AM Toradol 30 Mg [facility]#3954-0692-24 Reviewed 11/17/2012 12:00 AM Bupivicaine, 30 ml [facility]#9336-6610-90 Reviewed 11/17/2012 12:00 AM INJECT TRIGGER POINTS 3/> Reviewed 11/17/2012 12:00 AM Imitrex 6mg [facility] #36868-293-99 Reviewed 11/17/2012 12:00 AM Norflex, Up to 60 Mg [facility]#48977-982-49 Reviewed 11/17/2012 12:00 AM N BLOCK INJ OCCIPITAL Reviewed 12/01/2012 12:00 AM INJECT TRIGGER POINTS 3/> Reviewed 05/27/2013 12:00 AM THER/PROPH/DIAG INJ SC/IM Reviewed 05/27/2013 12:00 AM Norflex, Up to 60 Mg [facility]#97573-647-86 Reviewed 06/07/2013 12:00 AM INJECT TRIGGER POINTS 3/> Reviewed 06/24/2013 12:00 AM THER/PROPH/DIAG INJ SC/IM Reviewed 06/24/2013 12:00 AM Norflex, Up to 60 Mg [facility]#96562-041-95 Reviewed 06/24/2013 12:00 AM INJECT TRIGGER POINTS 3/> Reviewed 06/24/2013 12:00 AM N BLOCK INJ OCCIPITAL Reviewed 07/08/2013 12:00 AM INJECT TRIGGER POINTS 3/> Reviewed 07/08/2013 12:00 AM THER/PROPH/DIAG INJ SC/IM Reviewed 07/08/2013 12:00 AM Norflex 30 mg IM [facility]#57190-015-06 Reviewed 07/08/2013 12:00 AM THER/PROPH/DIAG INJ SC/IM Reviewed 07/22/2013 12:00 AM INJECT TRIGGER POINTS 3/> Reviewed 07/22/2013 12:00 AM THER/PROPH/DIAG INJ SC/IM Reviewed 07/22/2013 12:00 AM Norflex 30 mg IM [facility]#[id number] Reviewed 07/22/2013 12:00 AM THER/PROPH/DIAG INJ SC/IM Reviewed 08/03/2013 12:00 AM INJ TRIGGER POINT 1/2 MUSCL Reviewed 08/03/2013 12:00 AM THER/PROPH/DIAG INJ SC/IM Reviewed 08/03/2013 12:00 AM Norflex 30 mg IM [facility]#[id number] Reviewed 08/03/2013 12:00 AM Imitrex, 6mg [facility]#: [id number] Reviewed 08/24/2013 12:00 AM INJECT TRIGGER POINTS 3/> Reviewed 08/24/2013 12:00 AM THER/PROPH/DIAG INJ SC/IM Reviewed 08/24/2013 12:00 AM Norflex 30 mg IM ND#[id number] Reviewed 09/07/2013 12:00 AM INJECT TRIGGER POINTS 3/> Reviewed 09/07/2013 12:00 AM THER/PROPH/DIAG INJ SC/IM Reviewed 09/07/2013 12:00 AM Norflex 30 mg IM [facility]#[id number] Reviewed 09/21/2013 12:00 AM Botox Toxin Type A, 1 unit [id number] Reviewed 09/21/2013 12:00 AM CHEMODENERV MUSC MIGRAINE Reviewed 09/23/2013 12:00 AM INJECT TRIGGER POINTS 3/> Reviewed 11/08/2013 12:00 AM N BLOCK INJ OCCIPITAL Reviewed 11/08/2013 12:00 AM Kenalog, Per 10 Mg [facility]#[id number] [facility] Medicare Reviewed 12/21/2013 12:00 AM Botox Toxin Type A, 1 unit [id number] Reviewed 12/21/2013 12:00 AM CHEMODENERV MUSC MIGRAINE Reviewed 03/25/2014 12:00 AM THER/PROPH/DIAG INJ SC/IM Reviewed 03/25/2014 12:00 AM Norflex, Up to 60 Mg [facility]#[id number] Reviewed 05/17/2014 12:00 AM Interventional Pain Consult Reviewed 05/17/2014 12:00 AM Occupational Therapy Consult Reviewed 07/12/2014 12:00 AM DRAIN/INJ JOINT/BURSA W/O US Reviewed 07/12/2014 12:00 AM Kenalog, Per 10 Mg [facility]#[id number] Reviewed 10/11/2014 12:00 AM Botox Toxin Type A, 1 unit [id number] Reviewed 10/11/2014 12:00 AM CHEMODENERV MUSC MIGRAINE Reviewed Results Summary Not available. History Of Immunizations Not available. History of Past Illness Name Date of Onset Comments Diabetes Mellitus, Type II Arthritis unspecified Bipolar Disorder Headache Atrial fibrillation Hypertension COPD Hyperlipidemia Hypotension, Chronic Degenerative disc disease L5-S1 neck Bilateral occipital neuralgia 11/08/2013 Migraine 11/08/2013 Migraine:Chronic Aug 06 2011 9:08AM myofascial pain Aug 06 2011 9:08AM greater occipital neuralgia Aug 06 2011 9:08AM greater occipital neuralgia Aug 06 2011 1:31PM Headache Aug 06 2011 4:11PM greater occipital neuralgia Aug 20 2011 8:50AM myofascial pain Aug 20 2011 9:57AM myofascial pain Sep 17 2011 10:05AM Muscle Spasm Sep 17 2011 10:05AM greater occipital neuralgia Sep 17 2011 11:08AM myofascial pain Oct 01 2011 10:36AM Muscle Spasm Oct 01 2011 10:36AM myofascial pain Oct 15 2011 8:18AM Muscle Spasm Oct 15 2011 8:18AM Migraine Headache Oct 15 2011 8:18AM Headache Oct 15 2011 9:00AM myofascial pain Nov 04 2011 10:07AM Muscle Spasm Nov 04 2011 10:07AM Migraine Headache Nov 04 2011 10:07AM Trochanteric bursitis Nov 04 2011 10:07AM greater occipital neuralgia Nov 04 2011 10:07AM greater occipital neuralgia Nov 04 2011 1:56PM Trochanteric bursitis Nov 04 2011 2:14PM myofascial pain Dec 05 2011 8:11AM greater occipital neuralgia Dec 05 2011 8:11AM greater occipital neuralgia Dec 05 2011 12:56PM myofascial pain Sep 2011 8:22AM Headache Sep 2011 2:13PM myofascial pain Jan 02 2012 8:20AM Headache Jan 02 2012 9:14AM Migraine Headache Jan 02 2012 8:20AM greater occipital neuralgia Jan 02 2012 12:57PM myofascial pain Jan 21 2012 8:13AM greater occipital neuralgia Jan 21 2012 8:13AM greater occipital neuralgia Jan 21 2012 9:26AM myofascial pain Feb 06 2012 10:49AM Headache Feb 06 2012 2:07PM myofascial pain Mar 03 2012 1:08PM Bilateral greater occipital neuralgia Mar 03 2012 2:06PM Muscle Spasm Mar 03 2012 1:08PM Headache Mar 03 2012 4:17PM myofascial pain Mar 17 2012 9:49AM greater occipital neuralgia Mar 17 2012 9:49AM Headache Mar 17 2012 10:40AM myofascial pain Mar 17 2012 10:43AM Chronic migraine without aura; with intractable migraine, so stated, with status migrainosus; with refractory migraine, so stated, with status migrainosus Mar 17 2012 9:49AM myofascial pain Mar 26 2012 2:07PM Chronic migraine without aura; with intractable migraine, so stated, with status migrainosus; with refractory migraine, so stated, with status migrainosus Mar 26 2012 2:07PM Headache Apr 14 2012 3:34PM myofascial pain Apr 14 2012 3:37PM Bilateral greater occipital neuralgia Apr 14 2012 1:29PM myofascial pain Apr 14 2012 3:51PM myofascial pain May 06 2012 2:01PM greater occipital neuralgia May 06 2012 2:01PM Chronic migraine without aura; with intractable migraine, so stated, with status migrainosus; with refractory migraine, so stated, with status migrainosus May 06 2012 2:01PM myofascial pain May 06 2012 3:00PM Bilateral greater occipital neuralgia May 06 2012 3:05PM Chronic migraine without aura; with intractable migraine, so stated, with status migrainosus; with refractory migraine, so stated, with status migrainosus May 21 2012 10:22AM myofascial pain Jun 03 2012 11:02AM Headache Jun 03 2012 11:28AM Muscle Spasm Jun 03 2012 11:32AM myofascial pain Jul 01 2012 11:12AM Occipital Neuralgia Jul 01 2012 11:40AM Headache Jul 01 2012 11:40AM myofascial pain Jul 07 2012 8:38AM Chronic migraine without aura; with intractable migraine, so stated, with status migrainosus; with refractory migraine, so stated, with status migrainosus Jul 07 2012 8:38AM Headache Jul 07 2012 3:48PM Headache Jul 07 2012 3:50PM myofascial pain Jul 15 2012 9:19AM Headache Jul 15 2012 10:46AM myofascial pain Jul 15 2012 10:49AM myofascial pain Aug 06 2012 8:11AM Bilateral Occipital Neuralgia Aug 06 2012 9:07AM Headache Aug 06 2012 9:07AM Headache Aug 06 2012 3:09PM myofascial pain Aug 06 2012 3:11PM Chronic migraine without aura; with intractable migraine, so stated, with status migrainosus; with refractory migraine, so stated, with status migrainosus Aug 19 2012 10:03AM Headache Aug 19 2012 11:01AM Headache Aug 19 2012 11:04AM myofascial pain Sep 02 2012 11:07AM Headache Sep 02 2012 1:11PM Headache Sep 16 2012 10:37AM myofascial pain Sep 16 2012 10:40AM myofascial pain Sep 16 2012 8:50AM Headache Nov 17 2012 11:47AM myofascial pain Nov 17 2012 11:52AM myofascial pain Nov 17 2012 10:07AM Bilateral greater occipital neuralgia Nov 17 2012 12:59PM Headache Nov 17 2012 12:59PM myofascial pain Dec 01 2012 10:43AM myofascial pain Feb 2013 10:04AM Migraine Headache Feb 2013 8:27AM Fibromyalgia Feb 2013 8:27AM Chronic pain syndrome Feb 2013 8:27AM Depression and anxiety May 27 2013 8:27AM myofascial pain Jun 07 2013 1:29PM myofascial pain Jun 24 2013 12:58PM myofascial pain Jun 24 2013 1:46PM Occipital Neuralgia Jun 24 2013 12:58PM Headache Jun 24 2013 12:58PM Myofascial pain Jul 08 2013 1:12PM Headache Jul 08 2013 2:11PM Myofascial pain Jul 22 2013 10:32AM Headache Jul 22 2013 11:10AM Acute on Chronic Migraine Headache Aug 03 2013 10:04AM Fibromyalgia Aug 03 2013 10:04AM Chronic pain syndrome Aug 03 2013 10:04AM Depression and anxiety Aug 03 2013 10:04AM Myofascial pain Aug 03 2013 11:22AM Headache Aug 03 2013 11:51AM Myofascial pain Aug 24 2013 8:43AM Myofascial pain Sep 07 2013 8:31AM Chronic migraine without aura; without mention of intractable migraine with status migrainosus; without mention of refractory migraine with status migrainosus Sep 21 2013 10:04AM Myofascial pain Sep 23 2013 9:07AM Migraine Oct 05 2013 8:29AM Occipital Neuralgia Nov 08 2013 11:51AM Headache Nov 08 2013 11:51AM Headache Oct 29 2013 10:31AM Migraine Oct 29 2013 10:31AM Bilateral occipital neuralgia Oct 29 2013 10:31AM Migraine Nov 25 2013 9:22AM Polypharmacy Nov 25 2013 9:22AM Chronic migraine without aura; without mention of intractable migraine with status migrainosus; without mention of refractory migraine with status migrainosus Dec 21 2013 10:51AM Chronic migraine without aura; without mention of intractable migraine with status migrainosus; without mention of refractory migraine with status migrainosus Mar 25 2014 10:27AM Muscle spasm Mar 25 2014 10:27AM Migraine Feb 10 2014 8:56AM Chronic low back pain Feb 10 2014 8:56AM Memory difficulties Feb 10 2014 8:56AM Muscle tension headache Feb 10 2014 8:56AM Myofascial muscle pain Feb 10 2014 8:56AM Myofascial pain Jun 10 2014 9:46AM Lumbar degenerative disc disease Jun 13 2014 3:17PM Lumbar spinal stenosis Jun 13 2014 3:17PM Lumbar Radiculitis Jun 13 2014 3:17PM Myofascial pain Jun 13 2014 3:17PM Cervical disc herniation Jun 13 2014 3:17PM Myofascial pain Jul 12 2014 9:34AM Greater trochanteric bursitis of left hip Jul 12 2014 9:34AM Trochanteric bursitis of left hip Jul 12 2014 12:09PM Chronic migraine without aura; without mention of intractable migraine with status migrainosus; without mention of refractory migraine with status migrainosus Jul 19 2014 8:56AM Muscle spasm Jul 19 2014 8:56AM Myofascial pain 2014 9:49AM Muscle spasm Aug 02 2014 4:28PM Myofascial pain Aug 02 2014 4:04PM Cervical pain Aug 02 2014 4:52PM Chronic migraine without aura; without mention of intractable migraine with status migrainosus; without mention of refractory migraine with status migrainosus Oct 11 2014 9:33AM Chronic migraine without aura; without mention of intractable migraine with status migrainosus; without mention of refractory migraine with status migrainosus Jan 03 2015 8:39AM Lumbar degenerative disc disease Feb 02 2015 9:49AM Lumbar spinal stenosis Feb 02 2015 9:49AM Myofascial pain Feb 02 2015 9:49AM Cervical disc herniation Feb 02 2015 9:49AM Left shoulder pain Feb 02 2015 9:49AM Greater trochanteric bursitis of left hip Feb 02 2015 9:49AM Trochanteric bursitis of left hip Feb 02 2015 12:00PM Chronic migraine without aura; without mention of intractable migraine with status migrainosus; without mention of refractory migraine with status migrainosus Apr 10 2015 10:32AM Chronic migraine without aura; without mention of intractable migraine with status migrainosus; without mention of refractory migraine with status migrainosus Aug 10 2015 9:22AM Chronic migraine without aura; without mention of intractable migraine with status migrainosus; without mention of refractory migraine with status migrainosus Nov 09 2015 8:39AM Myofascial pain Nov 17 2015 8:33AM Chronic migraine without aura; without mention of intractable migraine with status migrainosus; without mention of refractory migraine with status migrainosus Feb 08 2016 8:53AM Chronic migraine without aura; without mention of intractable migraine with status migrainosus; without mention of refractory migraine with status migrainosus May 09 2016 8:55AM Chronic migraine without aura; without mention of intractable migraine with status migrainosus; without mention of refractory migraine with status migrainosus Aug 08 2016 8:05AM Chronic migraine without aura; without mention of intractable migraine with status migrainosus; without mention of refractory migraine with status migrainosus Nov 07 2016 9:28AM Payers Insurance Name Company Name Plan Name Plan Number Policy Number Policy Group Number Start Date Medicare [facility] Medicare [facility] [id number] Wednesday, 2011 [facility] [id number] N/A Medicare Part A Medicare - Lab/Xray [id number] Friday, January [id number] Medicare Part B Medicare Of [place] [id number] Saturday, February 05, 2011 [place] [facility] [id number] N/A History of Encounters Visit Date Visit Type Provider 11/07/2016 Procedures Ivelisse HUNTP 08/08/2016 Procedures Ivelisse HUNTP 05/09/2016 Procedures Ivelisse HUNTP 02/08/2016 Procedures Ivelisse HUNTP 11/17/2015 Office visit Ivelisse HUNTP 11/09/2015 Procedures Ivelisse HUNTP 08/10/2015 Procedures Ivelisse HUNTP 04/10/2015 Procedures Ivelisse HUNTP 02/02/2015 Office visit Penny Ayers MD 01/03/2015 Procedures Ivelisse HUNTP 10/11/2014 Procedures Ivelisse LANDAVERDE 08/02/2014 Office visit Ivelisse LANDAVERDE 2014 Office visit Ivelisse LANDAVERDE 07/19/2014 Office visit Ivelisse LANDAVERDE 07/12/2014 Office visit Penny Ayers MD 07/05/2014 Voided Ivelisse LANDAVERDE 06/13/2014 Office visit Phani Naik MD 06/10/2014 Office visit Ivelisse LANDAVERDE 05/17/2014 Office visit Penny Ayers MD 03/25/2014 Procedures Ivelisse LANDAVERDE 12/21/2013 Office visit Ivelisse LANDAVERDE 11/25/2013 Office visit Penny Ayers MD 10/29/2013 Office visit Ivelisse LANDAVERDE 10/05/2013 Office visit Ivelisse LANDAVERDE 09/28/2013 Voided Ivelisse LANDAVERDE 09/23/2013 Office visit Ivelisse LANDAVERDE 09/21/2013 Office visit Ivelisse LANDAVERDE 09/07/2013 Office visit Ivelisse LANDAVERDE 08/24/2013 Office visit Ivelisse LANDAVERDE 08/03/2013 Office visit Penny Ayers MD 07/22/2013 Office visit Ivelisse LANDAVERDE 07/08/2013 Office visit Ivelisse LANDAVERDE 06/24/2013 Office visit Ivelisse LANDAVERDE 06/07/2013 Office visit Ivelisse LANDAVERDE 05/27/2013 Office visit Penny Ayers MD 12/01/2012 Office visit Ivelisse Bruce VISCOSE CELLAR WORKER 11/17/2012 Office visit Penny Ayers MD 09/16/2012 Office visit Olivia Cisneros CONSUMER LOAN MANAGER 09/02/2012 Office visit Olivia Cisneros CONSUMER LOAN MANAGER 08/19/2012 Office visit Olivia Cisneros CONSUMER LOAN MANAGER 08/06/2012 Office visit Penny Ayers MD 07/15/2012 Office visit Olivia Cisneros CONSUMER LOAN MANAGER 07/07/2012 Office visit Penny Ayers MD 07/01/2012 Office visit Olivia Cisneros CONSUMER LOAN MANAGER 06/03/2012 Office visit Olivia Cisneros CONSUMER LOAN MANAGER 05/21/2012 Office visit Penny Ayers MD 05/06/2012 Office visit Olivia Cisneros CONSUMER LOAN MANAGER 04/14/2012 Office visit Olivia Cisneros CONSUMER LOAN MANAGER 03/26/2012 Office visit Olivia Cisneros CONSUMER LOAN MANAGER 03/17/2012 Office visit Penny Ayers MD 03/03/2012 Office visit Olivia Cisneros CONSUMER LOAN MANAGER 02/06/2012 Office visit Penny Ayers MD 01/21/2012 Office visit Penny Ayers MD 01/02/2012 Office visit Penny Ayers MD 12/19/2011 Office visit Penny Ayers MD 12/05/2011 Office visit Penny Ayers MD 11/04/2011 Office visit Penny Ayers MD 10/15/2011 Office visit Penny Ayers MD 10/01/2011 Office visit Penny Ayers MD 09/17/2011 Office visit Penny Ayers MD 08/20/2011 Office visit Penny Ayers MD 08/06/2011 Office visit Penny Ayers MD
--- NOTE | 2016-11-20 07:29 | Progress Note-Pre Operative ---
Pre-Operative Progress Note H&P Reviewed The H&P was reviewed, patient examined and no changes noted. Date Seen by Provider: Nov 20, 2016 Time Seen by Provider: 07:23 Date H&P Reviewed: Nov 20, 2016 Time H&P Reviewed: 05:35 Pre-Operative Diagnosis: right knee medial meniscus tear and chondromalacia ERIC BROOKE MD Nov 20, 2016 07:29
[2016-11-20] MEDS ORDERED: HYDROcodone/APAP 7.5 MG/325 MG (LORTAB, LORCET PLUS) TABLET PO PRN (07:30)
--- NOTE | 2016-11-20 07:30 | Progress Note-Post Operative ---
Post-Operative Progess Note Surgeon (s)/Outside Plant Field Engineer (s) Surgeon ERIC BROOKE MD Outside Plant Field Engineer: Paresh Harrison Pre-Operative Diagnosis right knee medial meniscus tear and chondromalacia Post-Operative Diagnosis right knee medial meniscus tear and chondromalacia of the medial femoral condyle, lateral tibial plateau and patella Procedure & Operative Findings Date of Procedure 11/20/16 Procedure Performed/Findings right knee arthroscopic partial medial meniscectomy and chondroplasty of the medial femoral condyle, lateral tibial plateau and patella Anesthesia Type GETA Estimated Blood Loss Estimated blood loss (mL): minimal Specimens/Packing Specimens Removed none Packing: none ERIC BROOKE MD Nov 20, 2016 07:30
[2016-11-20] MEDS ORDERED: PHENYLEPHRINE INJ 10 MG/ML (NEO-SYNEPHRINE 1%) ONE (07:39)
[2016-11-20] MEDS ORDERED: DEXAMETHASONE PF 10 MG/ML (DECADRON) VIAL ONE (07:39)
[2016-11-20 08:05] VITALS: BP 104/69
[2016-11-20] MEDS ORDERED: morphine INJ 10 MG/ML 1ML (SYR OR VIAL) ONE (08:21)
[2016-11-20] MEDS: morphine INJ 10 MG/ML 1ML (SYR OR VIAL) IVP PRN ×3 (08:29→08:42)
[2016-11-20 09:08] VITALS: BP 108/65
--- NOTE | 2016-11-20 09:17 | OPERATIVE REPORT ---
DATE OF SERVICE: 11/20/2016 PREOPERATIVE DIAGNOSIS: 1. Right knee medial meniscal tear. 2. Right knee chondromalacia of the medial femoral condyle. 3. Right knee chondromalacia of the patella. POSTOPERATIVE DIAGNOSIS: 1. Right knee medial meniscal tear. 2. Right knee chondromalacia of the medial femoral condyle. 3. Right knee chondromalacia of the patella. 4. Right knee chondromalacia of the lateral tibial plateau. PROCEDURES: 1. Right knee arthroscopic partial medial meniscectomy. 2. Right knee arthroscopic chondroplasty of the medial femoral condyle. 3. Right knee arthroscopic chondroplasty of the patella. 4. Right knee arthroscopic chondroplasty of the lateral tibial plateau. SURGEON: Albert Brooke MD TOOL SMITH: Paresh Harrison, who assisted throughout the procedure and closed the incisions. ANESTHESIA: General endotracheal by Dr. Leblanc. TOURNIQUET TIME: Not applicable. ESTIMATED BLOOD LOSS: Minimal. DRAINS: None. COMPLICATIONS: None. POSTOPERATIVE PLAN: Routine arthroscopy protocol. The patient was transferred to the recovery room awake and in stable condition. STATEMENT OF MEDICAL NECESSITY: The patient is a 61-year-old female with progressively worsening right medial knee pain, catching, locking and swelling. She had patellofemoral crepitus and tenderness along her medial joint line with pain with Queta's as well. She had failed to respond to conservative measures and due to functional impairment, the patient elected to proceed with surgical intervention. Examination under anesthesia revealed range of motion of 0/0/135 with a negative Anju, negative anterior and posterior drawer and varus and valgus laxity and negative pivot shift. ARTHROSCOPIC FINDINGS: The patella demonstrated grade 2 chondral flap centrally in a 15 x 10 area. The trochlea demonstrated no gross chondral abnormalities. The medial and lateral gutters were clear. The lateral compartment demonstrated grade 2 chondral flaps in the 1:30 portion of the tibial plateau in an 8 x 8 area. The ACL and PCL were intact. The medial compartment demonstrated a big tear of the posterior horn of the meniscus involving approximately one-third of the posterior horn. In addition, there were grade 2 chondral flaps centrally over the femoral condyle in a 15 x 15 area. PROCEDURE: After risks and benefits of the procedure were discussed and questions were answered, an informed consent was signed and placed on the chart. The operative site was confirmed in the preoperative holding area and initial by the surgeon. The patient was then transported to the operating room and after adequate levels of general endotracheal anesthetic were obtained, a timeout was called, confirming the operative site. Examination under anesthesia was performed and the right lower extremity was prepped and draped in the usual sterile fashion. The knee joint was injected with 60 mL of fluid and a standard inferolateral port was placed through arthroscope and under direct visualization, an inferomedial port was created. The menisci and cruciates were carefully probed with the above findings noted. The unstable chondral flaps on the patella were debrided with a shaver back to a stable edge. The scope was then redirected to the lateral compartment where the unstable chondral flaps and the lateral tibial plateau were debrided with a shaver back to a stable edge. The scope was removed, the medial compartment and the unstable chondral flaps and the medial femoral condyle were debrided with a shaver back to a stable edge and the posterior horn and the medial meniscus was debrided with a biter and a shaver, removing approximately one-third of the posterior horn. This was carefully probed with no further tear or instability noted. The knee was copiously irrigated. Port sites were closed with 4-0 nylon in a simple interrupted fashion. The knee was injected with Duramorph. A soft dressing was applied. The patient was transported to the recovery room awake and in stable condition. Job ID: [id number] DocumentID: [id number] Dictated Date: 11/20/2016 08:16:43 Wastewater Engineer Date: 11/20/2016 09:16:43 Dictated By: ALBERT BROOKE MD
[2016-11-20 09:38] VITALS: BP 101/70
[2016-11-20 10:08] VITALS: BP 103/74
[2016-11-20] MEDS ORDERED: HYDR-3816 PO (10:29)
--- NOTE | 2016-11-20 11:59 | Physical Therapy Ortho Eval ---
PT Orthopedic Evaluation Type of Surgery Knee Scope (right) Prior Level of Function Current Living Status: Spouse Locomotion (Upon Admit): Front Wheeled Walker Subjective Subjective Reports she has had other knee scopes inthe past. Uses a walker at home Entry Into Home: Level Entry Motor Control Motor Control: Motor Control WNL ROM ROM: WFL, except focal deficit (right knee flexion slightly limited. ) Strength Strength: Gen Weak,No Focal Deficit (min assist with SLR right) Transfer Transfers (B, C, W/C) (FIM): 5 Gait Gait Assistive Device: FWW Weight Bearing Restriction: Weight Bearing/Tolerated Location Restriction: R LE Gait (FIM): 5 Distance (FIM): 3=150 ft Gait Level of Assist: 5 Summary/Comments Educated pt on safe use of FWW and WBAT status Treatment Rendered Treatment: Therapeutic Exercises, Gait Train Exercise Instruction: Quad Sets, Straight Leg Raise, Heel Slides Post treatment she was mod indep with gait and transfers. Assessment/Goals Goal Time Frame: 1 Visit Understands HEP: Yes Safe Ambulation: Yes Plan Treatment Plan: Discharge Treatment Duration: 1 visit Time Time In: 950 Time Out: 1010 Total Billed Treatment Time: 20 Billed Treatment Time visit EVL20 Yes PT/OT Therapy GCodes Therapy Functional Limitation: Physical Therapy Test(s)/Tool used to determine: Level of Assistance Scale Functional Limitation-Current Charge Code: MOBCUR Modifier: CJ Functional Limitation-Goal Charge Code: MOBGOAL Modifier: CI Functional Limitation-D/C Charge Codes: MOBDC Modifier: CI ADRIANO COHN PT Nov 20, 2016 11:59
== END 2016-11-20 10:25 | disposition home or self-care (01) ==
LOC: SDC 06:00
PROVIDERS: ATTEND Orthopaedic Surgery
DX: M23.8X1 Other internal derangements of right knee (principal); M22.41 Chondromalacia patellae, right knee; I25.10 Atherosclerotic heart disease of native coronary artery without angina pectoris; E11.40 Type 2 diabetes mellitus with diabetic neuropathy, unspecified; F17.210 Nicotine dependence, cigarettes, uncomplicated; E78.5 Hyperlipidemia, unspecified; I48.91 Unspecified atrial fibrillation; Z79.899 Other long term (current) drug therapy
CPT/HCPCS: 82962; 94640

== ENCOUNTER 2016-11-26 08:50 | Day surgery (SDC) | payer MEDICARE, MEDICAID ==
[2016-11-26] VITALS (10 sets, daily range): BP systolic 100–126; BP diastolic 73–87
[~2016-11-26] VITALS: Ht 162.6 cm; Wt 74.4 kg
[~2016-11-26 08:50] MED LIST changes: +ARIP5TAB12 PO; +ARPZ20T PO; +NAPR-1070 PO; -NAPR550T PO; +RIFA550T PO
[2016-11-26] MEDS ORDERED: NS IV 1000 ML 1,000 ML ONE (09:30)
[2016-11-26] MEDS ORDERED: HEParin (CATH LAB) 2,000 ML IV ONE (09:30)
[2016-11-26] MEDS ORDERED: NS IV 1000 ML 1,000 ML IV SCH ×3 (10:00→16:43)
[2016-11-26 10:10] LABS: MEAN PLATELET VOLUME 10.2 FL (7.4-10.4)
[2016-11-26 10:12] LABS: BILIRUBIN,URINE NEGATIVE (NEGATIVE); KETONES,URINE NEGATIVE (NEGATIVE); LEUKOCYTE ESTERASE ,URINE 2+ (NEGATIVE); NITRITE,URINE NEGATIVE (NEGATIVE); PH,URINE 8 (5-9); PROTEIN,URINE NEGATIVE (NEGATIVE); UROBILINOGEN,URINE NORMAL (NORMAL)
[2016-11-26 10:13] LABS: RED BLOOD COUNT 4.82 10^6/uL (4.35-5.85); WHITE BLOOD COUNT 8.2 10^3/uL (4.3-11.0)
[2016-11-26 10:25] LABS: PROTHROMBIN TIME PATIENT 12.9 SEC (12.2-14.7)
[2016-11-26 10:31] LABS: ALANINE AMINOTRANSFERASE 47 U/L (0-55); ALBUMIN 3.9 GM/DL (3.2-4.5); ANION GAP 12 MMOL/L (5-14); ASPARTATE AMINO TRANSFERASE 25 U/L (5-34); BILIRUBIN,TOTAL 0.3 MG/DL (0.1-1.0); BLOOD UREA NITROGEN 11 MG/DL (7-18); BUN/CREATININE RATIO 17; CALCIUM 10.3 MG/DL (8.5-10.1); CARBON DIOXIDE 23 MMOL/L (21-32); CHLORIDE 104 MMOL/L (98-107); CHOLESTEROL 188 MG/DL (< 200); CREATININE SERUM 0.66 MG/DL (0.60-1.30); DIRECT LDL 80 MG/DL (1-129); GFR ESTIMATED > 60; GLUCOSE 121 MG/DL (70-105); POTASSIUM 4.8 MMOL/L (3.6-5.0); SODIUM 139 MMOL/L (135-145); TOTAL PROTEIN 6.9 GM/DL (6.4-8.2); TRIGLYCERIDES 88 MG/DL (<150); VLDL CHOLESTEROL 18 MG/DL (5-40)
--- NOTE | 2016-11-26 11:22 | Diagnostic Imaging Report ---
INDICATION: Atherosclerosis. Coronary artery disease. The lungs are hyperexpanded and showed air trapping with features of COPD. No substantial vascular congestion. No edema, pneumonia, effusion or pneumothorax. IMPRESSION: Hyperexpanded lungs with air trapping otherwise negative. Dictated by: Dictated on workstation # [id number]
[2016-11-26] MEDS ORDERED: DILT240C9 PO ×2 (13:18)
[2016-11-26] MEDS ORDERED: PRD10T PO ×2 (13:18)
[2016-11-26] MEDS ORDERED: ESCI10TA55 PO (13:18)
[2016-11-26] MEDS ORDERED: ALPR0.5T7 PO ×2 (13:18)
[2016-11-26] MEDS ORDERED: TRAZ-28 PO (13:18)
[2016-11-26] MEDS ORDERED: COLE1TAB PO ×2 (13:19)
[2016-11-26] MEDS ORDERED: GABA600T2 PO ×2 (13:19)
[2016-11-26] MEDS ORDERED: MAGN400T29 PO ×2 (13:19)
[2016-11-26] MEDS ORDERED: CLON1TAB PO ×2 (14:00)
[2016-11-26] MEDS ORDERED: ROPI2TAB4 PO ×2 (14:00)
[2016-11-26] MEDS ORDERED: DONE10TA41 PO ×2 (14:00)
[2016-11-26] MEDS ORDERED: VORT20TA PO ×2 (14:00)
[2016-11-26] MEDS ORDERED: PANT40TA2 PO ×2 (14:00)
[2016-11-26] MEDS ORDERED: MIRA50TA PO ×2 (14:00)
[2016-11-26] MEDS ORDERED: TROS20TA3 PO ×2 (14:00)
[2016-11-26] MEDS ORDERED: METO-387 PO ×2 (14:00)
[2016-11-26] MEDS ORDERED: ALBU2.5V4 NEB ×2 (14:00)
[2016-11-26] MEDS ORDERED: RT-ALBUINH IH ×2 (14:36)
[2016-11-26] MEDS ORDERED: CLOPIDOGREL 75 MG (PLAVIX) TABLET ONE (15:22)
[2016-11-26] MEDS ORDERED: ASPIRIN 81 MG CHEW (CHILDREN'S ASA) ONE (15:22)
[2016-11-26] MEDS ORDERED: fentaNYL INJECTION 100 MCG/2 ML AMP ONE (15:41)
[2016-11-26] MEDS ORDERED: diphenhydrAMINE 50 MG/ML INJ (BENADRYL) ONE (15:41)
[2016-11-26] MEDS ORDERED: MIDAZOLAM 5 MG/5 ML (VERSED) VIAL ONE (15:41)
--- NOTE | 2016-11-26 16:25 | Cardiac Procedure Note-CS/ASA ---
Pre-Procedure Note Pre-Op Procedure Note H&P Reviewed The H&P was reviewed, patient examined and no changes noted. Date H&P Reviewed: Nov 26, 2016 Time H&P Reviewed: 16:25 Conscious Sedation Pre-Proced Time Reviewed: 16:25 ASA Class: 3 Airway Mallampati Classification: (unga appropriate class) I. II. III, IV Lungs Heart ASA score ASA 1: a normal healthy patient ASA 2: a patient with a mild systemic disease (mid diabetes, controlled hypertension, obesity ASA 3: a patient with a severe systemic disease that limits activity (angina , COPD, prior Myocardial infarction) ASA 4: a patient with an incapacitating disease that is a constant threat to life (CHF, renal failure) ASA 5: a moribund patient not expected to survive 24 hrs. (ruptured aneurysm) ASA 6: a declared brain patient whose organs are being harvested. For emergent operations, add the letter E after the classification Grade 2 Sedation Plan: Analgesia, Amnesia, Plan communicated to team members, Discussed options with patient/fam, Discussed risks with patient/fam Note The patient is an appropriate candidate to undergo the planned procedure, sedation, and anesthesia. The patient immediately re-assessed prior to indication. MARY MILLER MD FACP FAC CCDS Nov 26, 2016 16:25
[2016-11-26] MEDS ORDERED: PATIENT MAY USE OWN MEDS, ALL PO SCH (16:45)
--- NOTE | 2016-11-26 16:46 | Discharge Inst-Post CATH ---
Discharge Inst-CATH Post Cardiac Cath D/C Inst Follow Up/Plan F/u with Dr Verde in 2-3 weeks CARDIAC CATH DISCHARGE INSTRUCTIONS *Hold Metformin for 48 hours post heart cath. ACTIVITY * Go Home directly and rest. * Limit activity of the leg (or wrist if it was used) for 7 days including aerobics, swimming, jogging, bicycling, etc. * Restrict stair-climbing for 7 days if possible, if not, climb up with your non -cath leg, then bring together on the same step. * Avoid lifting, pushing, pulling or excessive movement of the affected extremity for 7 days. * Customary sexual activity may be resumed after 2 days-use caution not to use a position that strains or causes pain to the affected extremity. * No driving for 24 hours. * NO SMOKING. * Avoid straining for bowel movements for 7 days. * Gentle walking on level ground is allowed. * Returning to work will depend on the type of procedure and the results. Your doctor will discuss this with you. CALL YOUR DOCTOR FOR ANY OF THE FOLLOWING: *If bleeding from the puncture site occurs- Apply gentle pressure to site with clean cloth and call your doctor or EMS. * If a knot or lump forms under the skin, increases in size, or causes pain. * If bruising appears to be worsening or moving further down your leg instead of disappearing. * Temperature above 101 F. CARE OF YOUR GROIN INCISION; * Bruising or purple discoloration of the skin near the puncture site is common. * You may shower only, no bathtub bathing for 5 days. Be careful to avoid slipping as your leg may feel stiff. * If a closure device was used on your femoral artery, please see the attached guide regarding care of the device and your leg. * REMOVE the dressing from your groin the next day after your procedure in the shower. CARE OF YOUR WRIST INCISION; * Bruising or purple discoloration of the skin near the puncture site is common. * You may shower. * DO NOT submerge wrist. * Remove dressing in 24 hours. MARY VERDE MD [facility] CCDS Nov 26, 2016 16:46
--- NOTE | 2016-11-26 16:49 | Discharge Inst-Cardiology ---
Discharge Inst-Cardiac Discharge Medications Continued Medications: Albuterol Sulfate (Albuterol Sulfate) 2.5 Mg/3 Ml Vial.neb 2.5 MG NEB Q6H PRN for SHORTNESS OF BREATH, EA Albuterol Sulfate (Ventolin Hfa) 1 Puff Puff 2 PUFF IH Q4H PRN for SHORTNESS OF BREATH, PUFF 1 PUFF = 90 MCG Alendronate Sodium (Alendronate Sodium) 70 Mg Tablet 70 MG PO Sa, TAB Alprazolam (Alprazolam) 0.5 Mg Tablet 0.5 MG PO TID PRN for ANXIETY, TAB Apixaban (Eliquis) 5 Mg Tablet 5 MG PO BID, TAB Aripiprazole (Abilify) 5 Mg Tablet 5 MG PO DAILY, TAB Aripiprazole (Abilify) 20 Mg Tablet 20 MG PO DAILY, TAB TAKES ALONG WITH 5MG TABLET Baclofen (Baclofen) 10 Mg Tablet 10 MG PO BID, TAB Budesonide/Formoterol Fumarate (Symbicort 160-4.5 Mcg Inhaler) 10.2 Gm Hfa.aer.ad 2 PUFF IH BID, INHALER Cetirizine HCl (Cetirizine HCl) 10 Mg Tablet 10 MG PO DAILY, TAB Clonazepam (Klonopin) 1 Mg Tablet 1 MG PO HS, TAB Colestipol HCl (Colestipol HCl) 1 Gm Tablet 1 GM PO BID, TAB LAST FILLED #60 6-25-17 Diltiazem HCl (Diltiazem ER) 240 Mg Cap.er.deg 240 MG PO DAILY, CAP Diphenoxylate HCl/Atropine (Diphenoxylate-Atrop 2.5-0.025) 1 Each Tablet 2 TAB PO TID, TAB Donepezil HCl (Donepezil HCl) 10 Mg Tablet 10 MG PO DAILY, TAB Gabapentin (Gabapentin) 600 Mg Tablet 600 MG PO TID, TAB Hydralazine HCl (Hydralazine HCl) 25 Mg Tablet 25 MG PO TID, TAB Hydrocodone/Acetaminophen (Hydrocodon-Acetaminoph 7.5-325) 1 Each Tablet 1-2 TAB PO Q4H PRN for PAIN, #30 TAB 0 Refills Hydroxyzine HCl (Hydroxyzine HCl) 25 Mg Tablet 25 MG PO TID, TAB Magnesium Oxide (Magox 400) 400 Mg Tablet 400 MG PO DAILY, TAB Memantine HCl (Memantine HCl) 10 Mg Tablet 10 MG PO HS, TAB Metoprolol Succinate (Metoprolol Succinate) 25 Mg Tab.er.24h 25 MG PO DAILY, TAB Mirabegron (Myrbetriq) 50 Mg Tab.er.24h 50 MG PO DAILY, TAB Montelukast Sodium (Montelukast Sodium) 10 Mg Tablet 10 MG PO HS, TAB Nitroglycerin (Nitrostat) 0.4 Mg Tab.subl 0.4 MG PO UD PRN for CHEST PAIN, TAB Pantoprazole Sodium (Protonix) 40 Mg Tablet.dr 40 MG PO BID, TAB Prednisone (Prednisone) 10 Mg Tab 10 MG PO DAILY, TAB Primidone (Primidone) 250 Mg Tablet 250 MG PO TID, TAB Rifaximin (Xifaxan) 550 Mg Tablet 550 MG PO TID, TAB Ropinirole HCl (Ropinirole HCl) 2 Mg Tablet 2 MG PO HS, TAB Simvastatin (Simvastatin) 20 Mg Tablet 20 MG PO HS, TAB Tiotropium [place] (Spiriva) 1 Inh Aerp 1 CAP IH HS Trazodone HCl (Trazodone HCl) 150 Mg Tablet 150 MG PO HS, TAB Trospium Chloride (Trospium Chloride) 20 Mg Tablet 20 MG PO BID, TAB Vortioxetine Hydrobromide (Trintellix) 20 Mg Tablet 20 MG PO DAILY, TAB Zolpidem Tartrate (Zolpidem Tartrate) 5 Mg Tablet 5 MG PO HS, TAB MARY MILLER MD FACP FAC CCDS Nov 26, 2016 16:49
--- NOTE | 2016-11-27 02:33 | CARDIAC CATHETERIZATION ---
DATE OF SERVICE: 11/26/2016 PROCEDURE: Cardiac catheterization. The patient is a 61-year-old lady who suffers from chest discomfort. Some of the symptoms recently have been suggestive of angina pectoris. She also remains very concerned that her chest discomfort is of coronary origin. Given all of these data, cardiac catheterization was carried out today after having obtained an informed consent. PROCEDURE: She was brought to the cardiac catheterization laboratory in a fasting state. Right groin was prepared and draped in the usual sterile fashion. Lidocaine 1% was used for local anesthesia. Modified Seldinger technique was used to advance a 5-Swazi sheath into the right femoral artery. A 5-Swazi JL4 catheter for left coronary angiography, a 5-Swazi JR4 catheter right coronary angiography. The 5-Swazi pigtail catheter left heart catheterization and left ventricular angiography. The 5-Swazi pigtail catheter was pulled back to the aortic arch and the aortic arch angiography was performed with runoff down the thoracic and abdominal aorta. Angiography of the right femoral artery was carried out through the sheath. The site of sheath insertion was not suitable for device closure. Manual pressure was used to achieve hemostasis following sheath removal. She tolerated the procedure well. HEMODYNAMICS: Left ventricular end-diastolic pressure following coronary angiography was 11 mmHg. There was no significant pressure gradient on pullback across the aortic valve. Ascending aortic pressure was 107/60 with a mean of 77 mmHg. LEFT VENTRICULAR ANGIOGRAPHY: Left ventricular angiography was carried out in the right anterior oblique projection. Global left ventricular systolic function normal. No regional wall motion abnormality was seen. Left ventricular ejection fraction approximately 65%. No significant mitral regurgitation is seen. CORONARY ANGIOGRAPHY: Mild coronary calcification is present. Left main coronary artery, left anterior descending, left circumflex and right coronary arteries do not exhibit any angiographically significant obstructive disease. There are mild plaques. Right coronary artery is dominant. AORTIC ARCH ANGIOGRAPHY: Aortic arch angiography does not indicate any significant thoracic aortic aneurysm or dissection. Neck arteries, to the extent visualized, do not seem to have significant disease. CONCLUSIONS: 1. Angiographically minor coronary artery disease. 2. Normal global left ventricular systolic function with ejection fraction approximately 65%. 3. Normal left ventricular end-diastolic pressure. 4. No significant mitral regurgitation. 4. No evidence of thoracic aortic aneurysm or dissection. DISCUSSION AND RECOMMENDATIONS: Based on results of the study, chest discomfort does not appear to be of cardiac origin. Continuing risk factor modification is advised. Outpatient followup is advised. Job ID: [id number] DocumentID: [id number] Dictated Date: 11/26/2016 16:57:10 Floor Covering Printer Date: 11/26/2016 20:15:04 Dictated By: MARY MILLER MD, MA, FACP, FACC,
[2016-11-27] MEDS ORDERED: PERM60CR4 TP (10:16)
[2016-12-17] MEDS ORDERED: MAGN250T13 PO (09:43)
[2016-12-17] MEDS ORDERED: COLE625T9 PO (10:03)
[2016-12-17] MEDS ORDERED: CHOL500050 PO (10:03)
[2016-12-17] MEDS ORDERED: FOLI1TAB57 PO (10:03)
[2016-12-17] MEDS ORDERED: BACL10TA PO (10:03)
[2017-02-09] MEDS ORDERED: NYST1000 PO (18:01)
== END 2016-11-26 20:40 | disposition home or self-care (01) ==
LOC: CATH 08:50 → ICU 17:10 → CATH 20:40
PROVIDERS: ATTEND Nurse Practitioner Family
DX: R07.89 Other chest pain (principal); I25.10 Atherosclerotic heart disease of native coronary artery without angina pectoris; I25.84 Coronary atherosclerosis due to calcified coronary lesion; E11.9 Type 2 diabetes mellitus without complications; J44.9 Chronic obstructive pulmonary disease, unspecified; Z79.899 Other long term (current) drug therapy; Z79.01 Long term (current) use of anticoagulants; Z72.0 Tobacco use; Z86.73 Personal history of transient ischemic attack (TIA), and cerebral infarction without residual deficits
CPT/HCPCS: 36221; 36415; 71010; 80053; 80061; 81000; 85027; 85610; 85730; 87077; 87081; 87088; 87186; 93005; 93458

== ENCOUNTER 2016-11-27 08:28 | Emergency (ER) | payer MEDICARE, MEDICAID ==
[~2016-11-27] VITALS: Ht 160 cm; Wt 70.3 kg
[~2016-11-27 08:28] MED LIST changes: +ALBU2.5V4 NEB; +ALPR0.5T7 PO; +CLON1TAB PO; +DONE10TA41 PO; +MAGN400T29 PO; +METO-270 PO; +MIRA50TA PO; -NAPR-1070 PO; +NAPR550T PO; +PANT40TA2 PO; +PRD10T PO; +TROS20TA3 PO
--- OUTSIDE RECORDS SUMMARY | 2016-11-27 08:36 | XMS REPORT | Continuity of Care Document ---
Author Author [employer] [facility] Address Unknown Phone Unavailable Care Team Providers Care Ergonomist Name Role Phone [employer] Unavailable Unavailable Problems Medications Allergies, Adverse Reactions, Alerts Immunizations Results Vital Signs Encounters Location Location Details Encounter Type Encounter Number Reason For Visit Attending Provider ADM Date DC Date Status Source [facility] [id number] Outpatient [id number] . LAB [facility] 01/12/2013 Active [employer], [facility] Procedures Plan of Care Social History Assessment and Plan Family History Value Date Source Advance Directives Order Name Results Value Date Source
--- OUTSIDE RECORDS SUMMARY | 2016-11-27 08:37 | XMS REPORT | Encounter Summary ---
Author Author [facility] Organization [facility] Address Unknown Phone Unavailable Care Team Providers Care Geosciences Faculty Member Name Role Phone PCP Unavailable Reason for Visit * Reason Comments Medication Question Encounter Details Date Type Department Care Team Description 10/03/2016 Telephone [facility] Gilles Ness MD Medication Question Physicians - OBGYN [address] [place] [address] 5TH FLOOR POD C [phone] [place] [address] [phone] Social History Tobacco Use Types Packs/Day Years [...]
--- OUTSIDE RECORDS SUMMARY | 2016-11-27 08:37 | XMS REPORT | Clinical Summary ---
Author Author [facility] Organization [facility] Address Unknown Phone Unavailable Care Team Providers Care Driver Education Road Instructor Name Role Phone PCP Unavailable Source Comments Some departments are not documenting in the electronic medical record. If you do not see the information that you expected, contact Release of Information in the Health Information Management department at [phone] for further assistance in locating additional records.[facility] Allergies Active Allergy Reactions Severity Noted Date [...] Heartburn 01/19/2015 COPD (chronic obstructive pulmonary disease) ([facility]) 05/18/2012 Diabetes mellitus (HCC) 05/18/2012 TIA (transient [...] Uro Gilles Wilson MD Medication Update 09/23/2016 [facility] Gilles Ness MD Hematuria, unspecified Encounter 09/23/2016 Office Visit Uro Gilles Wilson MD Hematuria (Primary Dx);Suspected urinary tract infection;Voiding dysfunction from Last 3 Months Family History Medical [...] 36.8 C (98.2 F) 06/13/2015 1:02 PM 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 UNDERWRITER Respiratory Rate 20 10/25/2015 10:12 AM CDT [...] LABEL Specimen Performing Laboratory MAIN LAB [address] [place] [address] * URINALYSIS MICROSCOPIC REFLEX TO CULTURE (09/23/2016 [...] 5 Specimen Performing Laboratory MAIN LAB [address] [place] [address] * URINALYSIS DIPSTICK REFLEX TO CULTURE (09/23/2016 9:30 AM) Component Value Ref Range Color,UA STRAW Turbidity,UA CLEAR CLEAR-CLEAR Specific [place]-Urine 1.005 1.003 - 1.035 pH,UA 6.0 5.0 - 8.0 Protein,UA NEG NEG-NEG Glucose,UA NEG NEG-NEG Ketones,UA NEG NEG-NEG Bilirubin,UA NEG NEG-NEG Blood,UA 1+ (A) NEG-NEG Urobilinogen,UA NORMAL NORM-NORMAL Nitrite,UA NEG NEG-NEG Leukocytes,UA NEG NEG-NEG Urine Ascorbic Acid, UA NEG NEG-NEG Specimen Performing Laboratory MAIN LAB [address] [place] [address] * BASIC METABOLIC PANEL (09/23/2016 9:27 AM) [...] Specimen Performing Laboratory Blood MAIN LAB [address] [place] [address] * POC URINE DIPSTICK MANUAL READ (09/23/2016 8:21 AM) Component Value Ref Range Urine Glucose POC negative Urine Bilirubin POC negative Urine Ketone POC negative Urine Specific [place] 1.010 POC Urine Blood POC negative Urine PH POC 6.0 Urine Protein POC negative Urine Urobilinogen POC negative Urine Nitrite POC negative Urine Leukocytes POC small + Color,UA yellow Turbidity,UA clear Specimen Performing Laboratory Urine, clean catch - IN CLINIC Urine * [place] POST-VOIDING RESIDUAL URINE&/BLADDER CAP (09/23/2016 8:20 AM) Component Value Ref Range SCAN 61 ML Specimen Performing Laboratory Urine IN CLINIC from Last 3 Months
--- OUTSIDE RECORDS SUMMARY | 2016-11-27 08:37 | XMS REPORT | Encounter Summary ---
Author Author [facility] Organization [facility] Address Unknown Phone Unavailable Care Team Providers Care Time Analysis Clerk Name Role Phone PCP Unavailable Reason for Visit * Reason Comments General Question Encounter Details Date Type Department Care Team Description 09/30/2016 Telephone [facility] Gilles Ness MD General Question Physicians - OBGYN [address] [place] [address] 5TH FLOOR POD C [phone] [place] [address] [phone] Social History Tobacco Use Types Packs/Day Years [...]
--- OUTSIDE RECORDS SUMMARY | 2016-11-27 08:37 | XMS REPORT | Encounter Summary ---
Author Author [facility] Organization [facility] Address Unknown Phone Unavailable Care Team Providers Care Ammonium Nitrate Neutralizer Name Role Phone PCP Unavailable Reason for Visit * Reason Comments Medication Update Encounter Details Date Type Department Care Team Description 09/24/2016 Telephone [facility] Gilles Ness MD Medication Update Physicians - OBGYN [address] [place] [address] 5TH FLOOR POD C [phone] [place] [address] [phone] Social History Tobacco Use Types Packs/Day Years [...]
--- OUTSIDE RECORDS SUMMARY | 2016-11-27 08:37 | XMS REPORT | Encounter Summary ---
Author Author [facility] Organization [facility] Address Unknown Phone Unavailable Care Team Providers Care Pool Coordinator Name Role Phone PCP Unavailable Reason for Visit * Reason Comments Medication Refill Encounter Details Date Type Department Care Team Description 11/15/2016 Refill [facility] Gilles Ness MD Physicians - OBGYN [address] [place] [address] 5TH FLOOR POD C [phone] [place] [address] [phone] Social History Tobacco Use Types Packs/Day Years [...]
--- OUTSIDE RECORDS SUMMARY | 2016-11-27 08:37 | XMS REPORT | Encounter Summary ---
Author Author [facility] Organization [facility] Address Unknown Phone Unavailable Care Team Providers Care Isotope Hydrologist Name Role Phone PCP Unavailable Encounter Details Date Type Department Care Team Description 09/23/2016 [facility] Gilles Ness MD Hematuria, unspecified Encounter [address] [place] [address] [address] [place] [address] [phone] Social History Tobacco Use Types Packs/Day Years [...] LABEL Specimen Performing Laboratory MAIN LAB [address] [place] [address] * URINALYSIS MICROSCOPIC REFLEX TO CULTURE (09/23/2016 [...] 5 Specimen Performing Laboratory MAIN LAB [address] [place] [address] * URINALYSIS DIPSTICK REFLEX TO CULTURE (09/23/2016 9:30 AM) Component Value Ref Range Color,UA STRAW Turbidity,UA CLEAR CLEAR-CLEAR Specific [place]-Urine 1.005 1.003 - 1.035 pH,UA 6.0 5.0 - 8.0 Protein,UA NEG NEG-NEG Glucose,UA NEG NEG-NEG Ketones,UA NEG NEG-NEG Bilirubin,UA NEG NEG-NEG Blood,UA 1+ (A) NEG-NEG Urobilinogen,UA NORMAL NORM-NORMAL Nitrite,UA NEG NEG-NEG Leukocytes,UA NEG NEG-NEG Urine Ascorbic Acid, UA NEG NEG-NEG Specimen Performing Laboratory MAIN LAB [address] [place] [address] * BASIC METABOLIC PANEL (09/23/2016 9:27 AM) [...] Performing Laboratory Blood [facility] MAIN LAB [address] [place] [address] in this encounter Visit Diagnoses Diagnosis Hematuria Hematuria, unspecified in this encounter Admitting Diagnoses Diagnosis Hematuria, unspecified in this encounter
--- OUTSIDE RECORDS SUMMARY | 2016-11-27 08:37 | XMS REPORT | Encounter Summary ---
Author Author [facility] Organization [facility] Address Unknown Phone Unavailable Care Team Providers Care Drum Sander Offbearer Name Role Phone PCP Unavailable Reason for Visit * Reason Comments General Question Encounter Details Date Type Department Care Team Description 11/11/2016 Telephone [facility] Gilles Ness MD General Question Physicians - OBGYN [address] F[address] [place] [address] OFFICE BLDG [phone] [place] [address] Social History Tobacco Use Types [...]
--- OUTSIDE RECORDS SUMMARY | 2016-11-27 08:37 | XMS REPORT | Encounter Summary ---
Author Author [facility] Organization [facility] Address Unknown Phone Unavailable Care Team Providers Care Retail Merchandising Manager Name Role Phone PCP Unavailable Reason for Referral * Consult, Test & Treat Status Reason Specialty Diagnoses / Referred By Referred To Procedures Contact Contact New Request Specialty Nephrology Diagnoses Gilles Ness MD Services Hematuria [address] [place] [address] Reason for Visit * Reason Comments Test/procedure Cystoscopy Possible Encounter Details Date Type Department Care Team Description 09/23/2016 Office Visit [facility] Gilles Ness MD Hematuria (Primary Physicians - OBGYN [address] Dx);Suspected urinary [address] tract infection;[place] [address] dysfunction 5TH FLOOR POD C [phone] [place] [address] [phone] Social History Tobacco Use Types Packs/Day Years [...] MANUAL READ 3. Voiding dysfunction 599.9 N39.8 [place] AM[place] POST-VOIDING RESIDUAL URINE&/BLADDER CAP Due to [...] URINE DIPSTICK MANUAL READ 3. Voiding dysfunction [place] AM[place] POST-VOIDING RESIDUAL URINE&/BLADDER CAP presently in [...] Performing Laboratory Blood [facility] MAIN LAB [address] [place] [address] * POC URINE DIPSTICK MANUAL READ (09/23/2016 8:21 AM) Component Value Ref Range Urine Glucose POC negative Urine Bilirubin POC negative Urine Ketone POC negative Urine Specific [place] 1.010 POC Urine Blood POC negative Urine PH POC 6.0 Urine Protein POC negative Urine Urobilinogen POC negative Urine Nitrite POC negative Urine Leukocytes POC small + Color,UA yellow Turbidity,UA clear Specimen Performing Laboratory Urine, clean catch - IN CLINIC Urine * [place] AM[place] POST-VOIDING RESIDUAL URINE&/BLADDER CAP (09/23/2016 8:20 AM) Component Value Ref Range SCAN 61 ML Specimen Performing Laboratory Urine IN CLINIC in this encounter Visit Diagnoses Diagnosis Hematuria - Primary Hematuria, unspecified Suspected urinary tract infection Voiding dysfunction Unspecified disorder of urethra and urinary tract in this encounter
--- OUTSIDE RECORDS SUMMARY | 2016-11-27 08:37 | XMS REPORT | Encounter Summary ---
Author Author [facility] Organization [facility] Address Unknown Phone Unavailable Care Team Providers Care Siebel Architect Name Role Phone PCP Unavailable Reason for Visit * Reason Comments Results Referral Encounter Details Date Type Department Care Team Description 09/27/2016 Telephone [facility] Gilles Ness MD Results; Referral Physicians - OBGYN [address] [place] [address] 5TH FLOOR POD C [phone] [place] [address] [phone] Social History Tobacco Use Types Packs/Day Years [...]
--- OUTSIDE RECORDS SUMMARY | 2016-11-27 08:42 | XMS REPORT ---
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 Active 36182010 Problem COPD (chronic obstructive pulmonary disease) J44.9 Active 53926276 Problem Dementia without behavioral disturbance, unspecified dementia type F03.90 Active 44181995 Problem Osteoporosis M81.0 Active 56007999 Problem Essential tremor G25.0 Active 93918678 Problem Cigarette nicotine dependence without complication F17.210 Active 94084776 Problem Postmenopausal Z78.0 Active 16656689 Problem Arthritis M19.90 Active 8249368 Problem Vascular dementia without behavioral disturbance F01.50 Active 24904047 Problem Major depressive disorder, recurrent episode, moderate F33.1 Active 965312612 Problem Coronary artery disease involving [place] coronary artery of [place] 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 I25.118 Active 9304701043386 Problem Chronic pain syndrome G89.4 Active 862682105 Problem Generalized anxiety disorder F41.1 Active 488024770 Problem Colon polyp K63.5 Active 40167672 Problem 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 Active 01768542 Problem Hyperlipidemia E78.5 Active 33393427 Problem Paroxysmal atrial fibrillation I48.0 Active 367890379 Problem History of common bile duct surgery Z98.89 Active 791557113 Problem Gastroparesis K31.84 Active 508188423 Problem Barretts esophagus K22.70 Active 502669525 Problem Cervicalgia M54.2 Active 2746120434954 ALLERGIES Unknown Allergies SOCIAL HISTORY No smoking Hx information available PLAN OF CARE VITAL SIGNS MEDICATIONS Medication Instructions Dosage Frequency Start Date End Date Duration Status Xanax 0.5 MG Orally Three times a day 1 tablet 8h 20 Mar, 2016 Active RESULTS No Results PROCEDURES No Known procedures IMMUNIZATIONS No Known Immunizations
[2016-11-27 08:59] LABS: BASOPHILS % (AUTO) 0 % (0-10); EOSINOPHILS # (AUTO) 0.3 10^3/uL (0.0-0.3); EOSINOPHILS % (AUTO) 2 % (0-10); LYMPHOCYTES # (AUTO) 1.7 X 10^3 (1.0-4.0); LYMPHOCYTES % (AUTO) 15 % (12-44); MEAN CORPUSCULAR HEMOGLOBIN 28 PG (25-34); MEAN CORPUSCULAR HGB CONC 32 G/DL (32-36); MEAN CORPUSCULAR VOLUME 88 FL (80-99); MEAN PLATELET VOLUME 10.1 FL (7.4-10.4); MONOCYTES % (AUTO) 9 % (0-12); NEUTROPHILS # (AUTO) 8.1 X 10^3 (1.8-7.8); NEUTROPHILS % (AUTO) 73 % (42-75); PLATELET COUNT 247 10^3/uL (130-400); RED BLOOD COUNT 5.09 10^6/uL (4.35-5.85); RED CELL DISTRIBUTION WIDTH 16.1 % (10.0-14.5); WHITE BLOOD COUNT 11.1 10^3/uL (4.3-11.0)
[2016-11-27 09:13] LABS: INR 0.9 (0.8-1.4); PROTHROMBIN TIME PATIENT 12.4 SEC (12.2-14.7)
[2016-11-27 09:24] LABS: ALANINE AMINOTRANSFERASE 52 U/L (0-55); ALBUMIN 4.1 GM/DL (3.2-4.5); ANION GAP 11 MMOL/L (5-14); ASPARTATE AMINO TRANSFERASE 43 U/L (5-34); BILIRUBIN,TOTAL 0.4 MG/DL (0.1-1.0); BLOOD UREA NITROGEN 14 MG/DL (7-18); BUN/CREATININE RATIO 19; CALCIUM 9.8 MG/DL (8.5-10.1); CARBON DIOXIDE 26 MMOL/L (21-32); CHLORIDE 99 MMOL/L (98-107); CREATININE SERUM 0.75 MG/DL (0.60-1.30); GFR ESTIMATED > 60; GLUCOSE 114 MG/DL (70-105); POTASSIUM 4.3 MMOL/L (3.6-5.0); SODIUM 136 MMOL/L (135-145); TOTAL PROTEIN 7.1 GM/DL (6.4-8.2); hs C REACTIVE PROTEIN 2.42 MG/DL (0.00-0.50)
--- NOTE | 2016-11-27 09:39 | ED Integumentary General ---
General Chief Complaint: Skin/Wound Problems Stated Complaint: RASH ON BOTH LEGS Nursing Triage Note: ADM TO ED WITH RASH TO LEGS ONSET YESTERDAY AM. Source: patient Exam Limitations: no limitations History of Present Illness Time seen by provider: 08:33 Initial Comments Here with itchy rash to both legs and both upper extremities. Noticed it yesterday morning. She had a heart catheter test yesterday but rash was present before hand. She had right knee orthoscopy 2 weeks ago with no sequela from that. Rash is intensely itchy and painful. She states that she has not been scratching. It is worse on the right leg but noted on the left upper leg and both forearms. She also has a few spots near the toes bilaterally. Timing/Duration: yesterday, getting worse Severity: moderate Location: extremities Possible Cause: no cause identified Associated Symptoms: change in skin texture, fever (he has ago but none), petechiae, rash Allergies and Home Medications Allergies Coded Allergies: bacitracin (Verified Allergy, Intermediate, "I BREAK OUT IN A RASH ALL OVER.", 08/26/16) neomycin (Verified Allergy, Intermediate, "I BREAK OUT IN A RASH ALL OVER. ", 08/26/16) polymyxin B (Verified Allergy, Intermediate, "I BREAK OUT IN A RASH ALL OVER.", 08/26/16) Penicillins (Verified Allergy, Unknown, NOT SURE KIND REACTION, 08/26/16) ibuprofen (Unverified Allergy, Unknown, 08/26/16) Home Medications Albuterol Sulfate 2.5 Mg/3 Ml Vial.neb, 2.5 MG NEB Q6H PRN for SHORTNESS OF BREATH, (Reported) Albuterol Sulfate 1 Puff Puff, 2 PUFF IH Q4H PRN for SHORTNESS OF BREATH, ( Reported) 1 PUFF = 90 MCG Alendronate Sodium 70 Mg Tablet, 70 MG PO Sa, (Reported) Alprazolam 0.5 Mg Tablet, 0.5 MG PO TID PRN for ANXIETY, (Reported) Apixaban 5 Mg Tablet, 5 MG PO BID, (Reported) Aripiprazole 5 Mg Tablet, 5 MG PO DAILY, (Reported) Aripiprazole 20 Mg Tablet, 20 MG PO DAILY, (Reported) TAKES ALONG WITH 5MG TABLET Baclofen 10 Mg Tablet, 10 MG PO BID, (Reported) Budesonide/Formoterol Fumarate 10.2 Gm Hfa.aer.ad, 2 PUFF IH BID, (Reported) Cetirizine HCl 10 Mg Tablet, 10 MG PO DAILY, (Reported) Clonazepam 1 Mg Tablet, 1 MG PO HS, (Reported) Colestipol HCl 1 Gm Tablet, 1 GM PO BID, (Reported) LAST FILLED #60 09-29-16 Diltiazem HCl 240 Mg Cap.er.deg, 240 MG PO DAILY, (Reported) Diphenoxylate HCl/Atropine 1 Each Tablet, 2 TAB PO TID, (Reported) Donepezil HCl 10 Mg Tablet, 10 MG PO DAILY, (Reported) Gabapentin 600 Mg Tablet, 600 MG PO TID, (Reported) Hydralazine HCl 25 Mg Tablet, 25 MG PO TID, (Reported) Hydrocodone/Acetaminophen 1 Each Tablet, 1-2 TAB PO Q4H PRN for PAIN, #30 Ref 0 Prescribed by: MILLER DOYLE on 11/20/16 1029 Hydroxyzine HCl 25 Mg Tablet, 25 MG PO TID, (Reported) Magnesium Oxide 400 Mg Tablet, 400 MG PO DAILY, (Reported) Memantine HCl 10 Mg Tablet, 10 MG PO HS, (Reported) Metoprolol Succinate 25 Mg Tab.er.24h, 25 MG PO DAILY, (Reported) Mirabegron 50 Mg Tab.er.24h, 50 MG PO DAILY, (Reported) Montelukast Sodium 10 Mg Tablet, 10 MG PO HS, (Reported) Nitroglycerin 0.4 Mg Tab.subl, 0.4 MG PO UD PRN for CHEST PAIN, (Reported) Pantoprazole Sodium 40 Mg Tablet.dr, 40 MG PO BID, (Reported) Prednisone 10 Mg Tab, 10 MG PO DAILY, (Reported) Primidone 250 Mg Tablet, 250 MG PO TID, (Reported) Rifaximin 550 Mg Tablet, 550 MG PO TID, (Reported) Ropinirole HCl 2 Mg Tablet, 2 MG PO HS, (Reported) Simvastatin 20 Mg Tablet, 20 MG PO HS, (Reported) Tiotropium [place] 1 Inh Aerp, 1 CAP IH HS, (Reported) Trazodone HCl 150 Mg Tablet, 150 MG PO HS, (Reported) Trospium Chloride 20 Mg Tablet, 20 MG PO BID, (Reported) Vortioxetine Hydrobromide 20 Mg Tablet, 20 MG PO DAILY, (Reported) Zolpidem Tartrate 5 Mg Tablet, 5 MG PO HS, (Reported) Constitutional: see HPI Respiratory: no symptoms reported Cardiovascular: no symptoms reported Gastrointestinal: No nausea, No vomiting Genitourinary: No dysuria, No pain Musculoskeletal: No muscle pain, No muscle weakness Skin: see HPI, change in color, lesions, pruritus, rash Psychiatric/Neurological: No Symptoms Reported All Other Systems Reviewed Negative Unless Noted: Yes Past Mmfpzen-Wvezbt-Cwzvjq Hx Patient Social History Alcohol Use: Denies Use Recreational Drug Use: No Smoking Status: Current Everyday Smoker Type Used: Cigarettes Former Smoker, Quit: Jun 06, 2015 Recent Foreign Travel: No Contact w/Someone Who Travel: No Recent Infectious Disease Expo: No Recent Hopitalizations: No Immunizations Up To Date Tetanus Booster (TDap): Unknown Date of Pneumonia Vaccine: Jan 26, 2016 Date of Influenza Vaccine: Dec 07, 2015 Seasonal Allergies Seasonal Allergies: Yes Surgeries History of Surgeries: Yes (HIATAL HERNIA, LUNG BIOPSY, LT ELBOW, BILAT CTR, NECK x4, LEFT KNEE SCOPE) Surgeries: Appendectomy, Bladder Surgery, Gallbladder, Orthopedic, Pancreatic Respiratory History of Respiratory Disorde: Yes (OXYGEN AT HS) Respiratory Disorders: Asthma, COPD Cardiovascular History of Cardiac Disorders: Yes Cardiac Disorders: Atrial Fibrillation, High Cholesterol, Hypotension, Irregular Heartbeat, Palpitations Neurological History of Neurological Disord: Yes (PARESTHESIAS OF BILAT LOWER EXT DUE TO FORAMINAL STENOSIS) Neurological Disorders: Headaches /Migraines, Neuropathy 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 System Hx 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 Disorders: No Sexually Transmitted Disease: No HIV/AIDS: No 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 Disorders: Denies Genitourinary Genitourinary Disorders: UTI-Chronic Gastrointestinal History of Gastrointestinal Di: Yes (PANCREAS - DUCTS UNCLOGGED) Gastrointestinal Disorders: Gastroesophageal Reflux, Chronic Diarrhea, Polyps, Ulcer Musculoskeletal History of Musculoskeletal Dis: Yes (CHRONIC NECK AND BACK PAIN, CHRONIC HIP PAIN) Musculoskeletal Disorders: Degenerate Disk Disease, Arthritis, Fibromyalgia, Chronic Back Pain Endocrine History of Endocrine Disorders: Yes (DIET CONTROLLED, THYROID NODULES) Endocrine Disorders: Diabetes, Non-Insulin dep HEENT Loss of Vision: Bilateral Hearing Impairment: Denies Cancer History of Cancer: No Psychosocial History of Psychiatric Problem: Yes (ATTEMPTED SUICIDE 26 YRS AGO) Behavioral Health Disorders: Anxiety, Suicide Attempts, Depression Integumentary History of Skin or Integumenta: Yes Skin/Integumentary Disorders: Psoriasis Blood Transfusions History of Blood Disorders: No Adverse Reaction to a Blood Tr: No Reviewed Nursing Assessment Reviewed/Agree w Nursing PMH: Yes Family Medical History Significant Family History: No Pertinent Family Hx Family Medial History: Cardiovascular disease G8 BROTHER (TRIPLE BYPASS) Diabetes mellitus 19 MOTHER FH: COPD (chronic obstructive pulmonary disease) 19 MOTHER FH: breast cancer 19 MOTHER FHx: brain cancer 19 FATHER Physical Exam Vital Signs Vital Sign - Last 12Hours 11/27/16 08:35 Temp 98.0 Pulse 81 Resp 18 B/P (MAP) 127/78 Pulse Ox 94 O2 Delivery Room Air Capillary Refill : Less Than 3 Seconds General Appearance: WD/WN, no apparent distress HEENT: PERRL/EOMI, pharynx normal Neck: full range of motion, supple Cardiovascular: regular rate, rhythm, no murmur Gastrointestinal: non tender, soft Back: normal inspection, no CVA tenderness, no vertebral tenderness Extremities: non-tender, normal inspection Neurologic/Psychiatric: alert, oriented x 3 Skin: warm/dry, rash Skin Problem Location: upper extremities, lower extremities Skin Problem Character: erythema, lesion, patchy, petechial, tenderness, other (multiple areas with single macular lesions or linear macular lesions but also multiple areas of large or lesions that almost appear ulcerative and that they are below the skin height with flat top and reddened and yellow appearance.) Progress/Results/Core Measures Results/Orders Lab Results Laboratory Tests Test 11/27/16 08:50 11/27/16 09:23 Range/Units White Blood Count 11.1 H 4.3-11.0 10^3/uL Red Blood Count 5.09 4.35-5.85 10^6/uL Hemoglobin 14.4 11.5-16.0 G/DL Hematocrit 45 35-52 % Mean Corpuscular Volume 88 80-99 FL Mean Corpuscular Hemoglobin 28 25-34 PG Mean Corpuscular Hemoglobin Concent 32 32-36 G/DL Red Cell Distribution Width 16.1 H 10.0-14.5 % Platelet Count 247 130-400 10^3/uL Mean Platelet Volume 10.1 7.4-10.4 FL Neutrophils (%) (Auto) 73 42-75 % Lymphocytes (%) (Auto) 15 12-44 % Monocytes (%) (Auto) 9 0-12 % Eosinophils (%) (Auto) 2 0-10 % Basophils (%) (Auto) 0 0-10 % Neutrophils # (Auto) 8.1 H 1.8-7.8 X 10^3 Lymphocytes # (Auto) 1.7 1.0-4.0 X 10^3 Monocytes # (Auto) 1.0 0.0-1.0 X 10^3 Eosinophils # (Auto) 0.3 0.0-0.3 10^3/uL Basophils # (Auto) 0.0 0.0-0.1 10^3/uL Erythrocyte Sedimentation Rate 4 0-30 MM/HR Prothrombin Time 12.4 12.2-14.7 SEC INR Comment 0.9 0.8-1.4 Activated Partial Thromboplast Time 28 24-35 SEC Sodium Level 136 135-145 MMOL/L Potassium Level 4.3 3.6-5.0 MMOL/L Chloride Level 99 98-107 MMOL/L Carbon Dioxide Level 26 21-32 MMOL/L Anion Gap 11 5-14 MMOL/L Blood Urea Nitrogen 14 7-18 MG/DL Creatinine 0.75 0.60-1.30 MG/DL Estimat Glomerular Filtration Rate > 60 BUN/Creatinine Ratio 19 Glucose Level 114 H 70-105 MG/DL Calcium Level 9.8 8.5-10.1 MG/DL Total Bilirubin 0.4 0.1-1.0 MG/DL Aspartate Amino Transf (AST/SGOT) 43 H 5-34 U/L Alanine Aminotransferase (ALT/SGPT) 52 0-55 U/L Alkaline Phosphatase 124 40-136 U/L C-Reactive Protein High Sensitivity 2.42 H 0.00-0.50 MG/DL Total Protein 7.1 6.4-8.2 GM/DL Albumin 4.1 3.2-4.5 GM/DL My Orders Orders - CRISTIANE MCWILLIAMS MD Cbc With Automated Diff (11/27/16 08:42) Comprehensive Metabolic Panel (11/27/16 08:42) Hs C Reactive Protein (11/27/16 08:42) Erythrocyte Sedimentation Rate (11/27/16 08:42) Protime With Inr (11/27/16 08:42) Partial Thromboplastin Time (11/27/16 08:42) Tick Panel With Lyme Eia (11/27/16 09:01) Vital Signs/I&O Vital Sign - Last 12Hours 11/27/16 08:35 Temp 98.0 Pulse 81 Resp 18 B/P (MAP) 127/78 Pulse Ox 94 O2 Delivery Room Air Blood Pressure Mean: 94 Progress Note : Progress Note Seen and evaluated. Labs ordered. Monitor patient. 1000: Discussed case with Dr. Herrera. She will establish follow-up at the clinic. Highly likely that this is scabies although still unclear of underlying cause. They can follow up in clinic for resolution and punch biopsy if indicated. This was discussed with the patient who agrees. Discharged home with return precautions. Patient verbalize understanding instructions and agreement with plan. Departure Impression Impression: Primary Impression: Scabies infestation Additional Impression: Excoriation Disposition: HOME, SELF-CARE Condition: Improved Departure-Patient Inst. Decision time for Depature: 10:07 Referrals: FAHAD CLEMENT MD (PCP/Family) Primary Care Physician Patient Instructions: Scabies (DC) Add. Discharge Instructions: All discharge instructions reviewed with patient and/or family. Voiced understanding. You may take Benadryl 25 mg every 6 hours as needed for itching. Follow-up with the clinic this week. They should call you for appointment. If you have not heard from them by tomorrow morning call them for appointment. Use prescribed medication as directed. Return for worse pain, fever, vomiting, weakness, breathing problems or other concerns as needed. Scripts Permethrin (Permethrin) 60 Gm Cream..g. 60 GM TP ONCE, #1 TUBE 1 Refill Prov: CRISTIANE MCWILLIAMS MD 11/27/16 Copy Copies To 1: SUMAN HERRERA TIMOTHY D MD Nov 27, 2016 09:39
[2016-11-27 09:40] LABS: ERYTHROCYTE SEDIMENTATION RATE 4 MM/HR (0-30)
[2016-11-27] MEDS ORDERED: PERM60CR4 TP (10:16)
[2016-11-27 10:24] VITALS: BP 127/78
[2016-11-28 04:38] LABS: LYME AB G M 0.15 Index (0.00-0.89)
[2016-11-28 09:53] LABS: LYME AB INTERP Negative (Negative); TULAREMIA ANTIBODY <1:20
[2016-11-28 13:44] LABS: EHRLICHIA CHAFFEENSIS G ABY <1:16 (<1:16)
[2016-11-28 15:53] LABS: IGG ROCKY MOUNTAIN SPOTTED FEV <1:16 (<1:16); IGM ROCKY MOUNTAIN SPOTTED FEV <1:10 (<1:10)
== END 2016-11-27 10:23 | disposition home or self-care (01) ==
LOC: EDUNIT# 08:28 → ER 08:30
DX: B86 Scabies (principal); F42.4 Excoriation (skin-picking) disorder; J44.9 Chronic obstructive pulmonary disease, unspecified; I48.91 Unspecified atrial fibrillation; E78.00 Pure hypercholesterolemia, unspecified; I10 Essential (primary) hypertension; G43.909 Migraine, unspecified, not intractable, without status migrainosus; K21.9 Gastro-esophageal reflux disease without esophagitis; M19.90 Unspecified osteoarthritis, unspecified site; E11.40 Type 2 diabetes mellitus with diabetic neuropathy, unspecified; F41.9 Anxiety disorder, unspecified; F32.9 Major depressive disorder, single episode, unspecified; F17.210 Nicotine dependence, cigarettes, uncomplicated; Z82.49 Family history of ischemic heart disease and other diseases of the circulatory system; Z80.3 Family history of malignant neoplasm of breast; Z85.841 Personal history of malignant neoplasm of brain; Z90.49 Acquired absence of other specified parts of digestive tract; Z79.01 Long term (current) use of anticoagulants; Z91.5 Personal history of self-harm
CPT/HCPCS: 36415; 80053; 85025; 85610; 85652; 85730; 86141; 86618; 86666; 86668; 86757; 99282

== ENCOUNTER → 2016-11-28 | Outpatient (CLI) | payer MEDICARE, MEDICAID ==
[~2016-11-28] MED LIST changes: +PERM60CR4 TP
--- NOTE | 2016-11-28 20:11 | Diagnostic Imaging Report ---
EXAMINATION: DEXA scan. INDICATION: Screening for osteoporosis. This study was compared to the prior exam of 01/04/2016. The bone mineral density of the hips and spine was measured. FINDINGS: The T-score for the spine is -1.6. On the prior exam, the T score was -1.8. The T-score for the left hip is -2.0 and for the right hip -2.6. On the prior exam, the respective T-scores were -1.9 and -2.4. IMPRESSION: 1. There are mixed results. There has been a slight increase in the bone mineral density of the spine. The T-score value remains within normal limits. 2. There has been a slight decrease in the bone mineral density of the hips. The T-score for the left hip indicates severe osteopenia while the T-score for the right hip does fall within the range of osteoporosis. Dictated by: Dictated on workstation # [id number]
== END ==
LOC: RAD 11:26
PROVIDERS: ATTEND Physician Assistant
DX: M81.0 Age-related osteoporosis without current pathological fracture (principal)
CPT/HCPCS: 77080

== ENCOUNTER 2016-12-17 08:25 | Day surgery (SDC) | payer MEDICARE, MEDICAID ==
[2016-12-17] VITALS (12 sets, daily range): BP systolic 96–126; BP diastolic 58–79
[~2016-12-17] VITALS: Ht 162.6 cm; Wt 72.6 kg
[~2016-12-17 08:25] MED LIST changes: -METO-270 PO; +METO-387 PO; +NAPR-1070 PO; -NAPR550T PO
[2016-12-17] MEDS ORDERED: HEParin (CATH LAB) 2,000 ML IV ONE (08:26)
[2016-12-17] MEDS ORDERED: NS IV 1000 ML 1,000 ML ONE (08:26)
[2016-12-17] MEDS ORDERED: NS IV 1000 ML 1,000 ML IV SCH ×2 (08:45→11:21)
[2016-12-17 09:21] LABS: MEAN PLATELET VOLUME 9.9 FL (7.4-10.4); RED BLOOD COUNT 4.48 10^6/uL (4.35-5.85); RED CELL DISTRIBUTION WIDTH 16.5 % (10.0-14.5); WHITE BLOOD COUNT 10.5 10^3/uL (4.3-11.0)
[2016-12-17 09:29] LABS: INR 0.9 (0.8-1.4); PROTHROMBIN TIME PATIENT 12.2 SEC (12.2-14.7)
[2016-12-17 09:40] LABS: ALANINE AMINOTRANSFERASE 52 U/L (0-55); ALBUMIN 3.7 GM/DL (3.2-4.5); ANION GAP 10 MMOL/L (5-14); ASPARTATE AMINO TRANSFERASE 38 U/L (5-34); BILIRUBIN,TOTAL 0.3 MG/DL (0.1-1.0); BLOOD UREA NITROGEN 9 MG/DL (7-18); BUN/CREATININE RATIO 13; CALCIUM 9.8 MG/DL (8.5-10.1); CARBON DIOXIDE 26 MMOL/L (21-32); CHLORIDE 104 MMOL/L (98-107); CHOLESTEROL 186 MG/DL (< 200); CREATININE SERUM 0.67 MG/DL (0.60-1.30); DIRECT LDL 80 MG/DL (1-129); GFR ESTIMATED > 60; GLUCOSE 97 MG/DL (70-105); POTASSIUM 4.3 MMOL/L (3.6-5.0); SODIUM 140 MMOL/L (135-145); TOTAL PROTEIN 6.3 GM/DL (6.4-8.2); TRIGLYCERIDES 77 MG/DL (<150); VLDL CHOLESTEROL 15 MG/DL (5-40)
[2016-12-17] MEDS ORDERED: MAGN250T13 PO ×2 (09:43)
[2016-12-17] MEDS ORDERED: COLE625T9 PO ×2 (10:03)
[2016-12-17] MEDS ORDERED: FOLI1TAB57 PO ×2 (10:03)
[2016-12-17] MEDS ORDERED: BACL10TA PO ×2 (10:03)
[2016-12-17] MEDS ORDERED: CHOL500050 PO ×2 (10:03)
[2016-12-17] MEDS ORDERED: diphenhydrAMINE 50 MG/ML INJ (BENADRYL) ONE (10:12)
[2016-12-17] MEDS ORDERED: MIDAZOLAM 5 MG/5 ML (VERSED) VIAL ONE (10:12)
[2016-12-17] MEDS ORDERED: fentaNYL INJECTION 100 MCG/2 ML AMP ONE (10:12)
--- NOTE | 2016-12-17 11:21 | Cardiac Procedure Note-CS/ASA ---
Pre-Procedure Note Pre-Op Procedure Note H&P Reviewed The H&P was reviewed, patient examined and no changes noted. Date H&P Reviewed: Dec 17, 2016 Time H&P Reviewed: 10:15 Conscious Sedation Pre-Proced Time Reviewed: 10:15 ASA Class: 3 Airway Mallampati Classification: (kaw appropriate class) I. II. III, IV Lungs Heart ASA score ASA 1: a normal healthy patient ASA 2: a patient with a mild systemic disease (mid diabetes, controlled hypertension, obesity ASA 3: a patient with a severe systemic disease that limits activity (angina , COPD, prior Myocardial infarction) ASA 4: a patient with an incapacitating disease that is a constant threat to life (CHF, renal failure) ASA 5: a moribund patient not expected to survive 24 hrs. (ruptured aneurysm) ASA 6: a declared brain patient whose organs are being harvested. For emergent operations, add the letter E after the classification Grade 2 Sedation Plan: Analgesia, Amnesia, Plan communicated to team members, Discussed options with patient/fam, Discussed risks with patient/fam Note The patient is an appropriate candidate to undergo the planned procedure, sedation, and anesthesia. The patient immediately re-assessed prior to indication. MARY MILLER MD FACP FAC CCDS Dec 17, 2016 11:21
--- NOTE | 2016-12-17 11:25 | Discharge Inst-Post CATH ---
Discharge Inst-CATH Post Cardiac Cath D/C Inst Follow Up/Plan F/u with Dr Verde in 2 weeks CARDIAC CATH DISCHARGE INSTRUCTIONS *Hold Metformin for 48 hours post heart cath. ACTIVITY * Go Home directly and rest. * Limit activity of the leg (or wrist if it was used) for 7 days including aerobics, swimming, jogging, bicycling, etc. * Restrict stair-climbing for 7 days if possible, if not, climb up with your non -cath leg, then bring together on the same step. * Avoid lifting, pushing, pulling or excessive movement of the affected extremity for 7 days. * Customary sexual activity may be resumed after 2 days-use caution not to use a position that strains or causes pain to the affected extremity. * No driving for 24 hours. * NO SMOKING. * Avoid straining for bowel movements for 7 days. * Gentle walking on level ground is allowed. * Returning to work will depend on the type of procedure and the results. Your doctor will discuss this with you. CALL YOUR DOCTOR FOR ANY OF THE FOLLOWING: *If bleeding from the puncture site occurs- Apply gentle pressure to site with clean cloth and call your doctor or EMS. * If a knot or lump forms under the skin, increases in size, or causes pain. * If bruising appears to be worsening or moving further down your leg instead of disappearing. * Temperature above 101 F. CARE OF YOUR GROIN INCISION; * Bruising or purple discoloration of the skin near the puncture site is common. * You may shower only, no bathtub bathing for 5 days. Be careful to avoid slipping as your leg may feel stiff. * If a closure device was used on your femoral artery, please see the attached guide regarding care of the device and your leg. * REMOVE the dressing from your groin the next day after your procedure in the shower. CARE OF YOUR WRIST INCISION; * Bruising or purple discoloration of the skin near the puncture site is common. * You may shower. * DO NOT submerge wrist. * Remove dressing in 24 hours. MARY VERDE MD FACP [facility] CCDS Dec 17, 2016 11:25
--- NOTE | 2016-12-17 11:26 | Discharge Inst-Cardiology ---
Discharge Inst-Cardiac Discharge Medications Continued Medications: Albuterol Sulfate (Albuterol Sulfate) 2.5 Mg/3 Ml Vial.neb 2.5 MG NEB Q6H PRN for SHORTNESS OF BREATH, EA Albuterol Sulfate (Ventolin Hfa) 1 Puff Puff 2 PUFF IH Q4H PRN for SHORTNESS OF BREATH, PUFF 1 PUFF = 90 MCG Alendronate Sodium (Alendronate Sodium) 70 Mg Tablet 70 MG PO Sa, TAB Alprazolam (Alprazolam) 0.5 Mg Tablet 0.5 MG PO TID PRN for ANXIETY, TAB Apixaban (Eliquis) 5 Mg Tablet 5 MG PO BID, TAB Aripiprazole (Abilify) 5 Mg Tablet 5 MG PO DAILY, TAB Aripiprazole (Abilify) 20 Mg Tablet 20 MG PO DAILY, TAB TAKES ALONG WITH 5MG TABLET Baclofen (Baclofen) 10 Mg Tablet 10 MG PO BID, TAB Baclofen (Baclofen) 10 Mg Tablet 10 MG PO BID, TAB Budesonide/Formoterol Fumarate (Symbicort 160-4.5 Mcg Inhaler) 10.2 Gm Hfa.aer.ad 2 PUFF IH BID, INHALER Cetirizine HCl (Cetirizine HCl) 10 Mg Tablet 10 MG PO DAILY, TAB Cholecalciferol (Vitamin D3) (Vitamin D) 5,000 Unit Capsule 5000 UNIT PO WEEK, CAP Clonazepam (Klonopin) 1 Mg Tablet 1 MG PO HS, TAB Colesevelam HCl (Welchol) 625 Mg Tablet 625 MG PO BID, TAB Diltiazem HCl (Diltiazem ER) 240 Mg Cap.er.deg 240 MG PO DAILY, CAP Diphenoxylate HCl/Atropine (Diphenoxylate-Atrop 2.5-0.025) 1 Each Tablet 2 TAB PO TID, TAB Donepezil HCl (Donepezil HCl) 10 Mg Tablet 10 MG PO DAILY, TAB Gabapentin (Gabapentin) 600 Mg Tablet 600 MG PO TID, TAB Hydralazine HCl (Hydralazine HCl) 25 Mg Tablet 25 MG PO TID, TAB Hydroxyzine HCl (Hydroxyzine HCl) 25 Mg Tablet 25 MG PO TID, TAB Magnesium Oxide (Magnesium) 250 Mg Tablet 250 MG PO DAILY, TAB Memantine HCl (Memantine HCl) 10 Mg Tablet 10 MG PO HS, TAB Metoprolol Succinate (Metoprolol Succinate) 25 Mg Tab.er.24h 25 MG PO DAILY, TAB Mirabegron (Myrbetriq) 50 Mg Tab.er.24h 50 MG PO DAILY, TAB Montelukast Sodium (Montelukast Sodium) 10 Mg Tablet 10 MG PO HS, TAB Mv,Ca,Min/Iron Fum/FA/Vit K (Multi For Her Tablet) 1 Each Tablet 1 EACH PO DAILY, TAB Nitroglycerin (Nitrostat) 0.4 Mg Tab.subl 0.4 MG PO UD PRN for CHEST PAIN, TAB Pantoprazole Sodium (Protonix) 40 Mg Tablet.dr 40 MG PO BID, TAB Prednisone (Prednisone) 10 Mg Tab 10 MG PO DAILY, TAB Primidone (Primidone) 250 Mg Tablet 250 MG PO TID, TAB Rifaximin (Xifaxan) 550 Mg Tablet 550 MG PO TID, TAB Ropinirole HCl (Ropinirole HCl) 2 Mg Tablet 2 MG PO HS, TAB Simvastatin (Simvastatin) 20 Mg Tablet 20 MG PO HS, TAB Tiotropium [place] (Spiriva) 1 Inh Aerp 1 CAP IH HS Trazodone HCl (Trazodone HCl) 150 Mg Tablet 150 MG PO HS, TAB Trospium Chloride (Trospium Chloride) 20 Mg Tablet 20 MG PO TID, TAB Vortioxetine Hydrobromide (Trintellix) 20 Mg Tablet 20 MG PO DAILY, TAB Zolpidem Tartrate (Zolpidem Tartrate) 5 Mg Tablet 5 MG PO HS, TAB MARY MILLER MD FACP FAC CCDS Dec 17, 2016 11:25
[2016-12-17] MEDS ORDERED: PATIENT MAY USE OWN MEDS, ALL PO SCH (11:30)
[2016-12-17] MEDS ORDERED: HYDROcodone/APAP 5 MG/325 MG (LORTAB) TAB ONE (11:33)
[2016-12-17] MEDS ORDERED: HYDROcodone/APAP 5 MG/325 MG (LORTAB) TAB PO PRN (11:45)
--- NOTE | 2016-12-17 12:00 | CARDIAC CATHETERIZATION ---
DATE OF SERVICE: 12/17/2016 PROCEDURE: Abdominal aortic and peripheral angiography report. The patient is a 61-year-old lady with peripheral arterial disease risk factors who has symptoms of leg claudication and ankle brachial indices were suggestive of peripheral arterial disease. Peripheral angiography was carried out after having obtained an informed consent. PROCEDURE: She was brought to the cardiac catheterization laboratory in a fasting state. Right groin was prepared and draped in the usual sterile fashion. Lidocaine 1% local anesthesia. Modified Seldinger technique was used to advance a 5-[place] sheath in the right femoral artery. Angiography of the right femoral artery was carried out through the sheath. We used a 5-[place] pigtail catheter to carry out abdominal aortic angiography. The catheter was then pulled back to just above the level of the aortoiliac bifurcation and bilateral angiography was performed with runoff down to the level of both feet. She tolerated the procedure well. The catheter was removed. Mynx was used to achieve hemostasis following sheath removal. ABDOMINAL AORTIC ANGIOGRAPHY: Abdominal aortic angiography did not indicate any significant abdominal aortic aneurysm or dissection. Renal arteries are identified and are intact. The mesenteric vessels, to the extent seen, do not exhibit significant disease. Aortic and iliac bifurcation exhibits mild to moderate calcification. BILATERAL LEG ARTERY ANGIOGRAPHY: Bilateral leg artery angiography did not indicate any significant obstructive disease of the arterial circulation of the legs. Mild to moderate aortoiliac calcification is seen involving the distal portion of the abdominal aorta and proximal portion of the iliac arteries. The iliac arteries, the common femoral arteries, the superficial femoral arteries, deep femoral arteries, the popliteal arteries are intact and without significant obstructive disease on both sides. There is a 3-vessel runoff on both sides. CONCLUSIONS: 1. No abdominal aortic aneurysm. 2. No significant renal artery stenosis. 3. Mild bilateral peripheral arterial disease without evidence of any obstructive peripheral arterial disease of the legs. DISCUSSION: Based on results of the study, it appears appropriate to continue a conservative approach. Risk factor modification has been discussed. Outpatient followup is advised. Job ID: [id number] DocumentID: [id number] Dictated Date: 12/17/2016 11:17:10 Delivery Representative Date: 12/17/2016 12:00:15 Dictated By: MARY MILLER MD, MA, FACP, FACC, MTDD
[2017-02-09] MEDS ORDERED: NYST1000 PO (18:01)
== END 2016-12-17 15:06 | disposition home or self-care (01) ==
LOC: CATH 08:25 → SURG 11:25 → CATH 15:06
PROVIDERS: ATTEND Internal Medicine Cardiovascular Disease
DX: I70.213 Atherosclerosis of native arteries of extremities with intermittent claudication, bilateral legs (principal); E11.9 Type 2 diabetes mellitus without complications; Z72.0 Tobacco use; J44.9 Chronic obstructive pulmonary disease, unspecified; Z79.01 Long term (current) use of anticoagulants; Z86.73 Personal history of transient ischemic attack (TIA), and cerebral infarction without residual deficits; Z79.899 Other long term (current) drug therapy
CPT/HCPCS: 36200; 36415; 75625; 75716; 80053; 80061; 85027; 85610; 85730; 87081

== ENCOUNTER → 2016-12-19 | Outpatient (CLI) | payer MEDICARE, MEDICAID ==
[~2016-12-19] MED LIST changes: +CHOL500050 PO; +FOLI1TAB57 PO; +MAGN250T13 PO; +METO-270 PO; -METO-387 PO; -NAPR-1070 PO; +NAPR550T PO
--- NOTE | 2016-12-19 13:46 | Diagnostic Imaging Report ---
PROCEDURE: CT cervical spine without contrast. TECHNIQUE: Multiple contiguous axial images were obtained through the cervical spine without the use of intravenous contrast. Sagittal and coronal reformations were then performed. INDICATION: Base of neck pain. FINDINGS: The previous CT cervical spine exam of 07/15/2015 noted extensive postoperative changes involving the cervical spine. Specifically, there had been a posterior decompressive laminectomy from C3 to C7 with bipedicular posterior instrumented cervical fusion. There were also interbody fusion devices anteriorly at C3-4, C4-5, C5-6, and C6-7 and an ACDF at C7-T1. The subsequent MRI cervical spine exam of 09/25/2015 noted that the postsurgical changes appear stable. There did appear to be [id number] central stenosis at T1-2. Those findings were also identified on the recent MRI cervical spine exam of 10/31/2016. On this study, the postsurgical changes are again evident and seem similar to the prior exam. The orthopedic hardware remains intact. There is no fracture or acute bony abnormality noted. As noted on the prior exam, there is minimal anterior translation of C7 with respect to T1. The moderate central stenosis at the T1-T2 level seen previously is again visualized and has not progressed. There is no sign of retropharyngeal edema. The thyroid gland is unremarkable. The lung apices are clear. IMPRESSION: 1. There is no evidence for an acute bony abnormality. 2. The extensive postsurgical changes involving the cervical spine noted previously appear stable. No new area of spinal stenosis or nerve root encroachment has developed. 3. The mild/moderate stenosis at T1-2 noted previously is essentially no different. Dictated by: Dictated on workstation # [id number]
== END ==
LOC: RAD 12:09
PROVIDERS: ATTEND Orthopaedic Surgery Orthopaedic Surgery of the Spine
DX: M48.04 Spinal stenosis, thoracic region (principal); M54.2 Cervicalgia; Z98.890 Other specified postprocedural states
CPT/HCPCS: 72125

== ENCOUNTER 2016-12-22 11:43 | Emergency (ER) | payer MEDICARE, MEDICAID ==
[~2016-12-22] VITALS: Ht 162.6 cm; Wt 70.3 kg
[~2016-12-22 11:43] MED LIST changes: -METO-270 PO; +METO-387 PO; +NAPR-1070 PO; -NAPR550T PO
[2016-12-22] MEDS ORDERED: HYDROcodone/APAP 10 MG/325 MG (LORTAB) TAB PO STA (12:02)
[2016-12-22] MEDS ORDERED: morphine INJ 10 MG/ML 1ML (SYR OR VIAL) IVP STA ×2 (12:07→13:17)
--- NOTE | 2016-12-22 12:20 | ED General ---
General Chief Complaint: Lower Extremity Stated Complaint: POST HEART CATH/R LEG INCISION PAIN Nursing Triage Note: ADM TO ED REPORT THAT ON FRI HAD ANGIOGRAPHY YESTERDAY ONSET OF PAIN IN INSERATION SITE IN R GROIN WITH BRUSING AND KNOT IN GROIN. BRUSING NOTED. Nursing Sepsis Screen: No Definite Risk Source of Information: Patient Exam Limitations: No Limitations History of Present Illness Time Seen by Provider: 11:52 Initial Comments 61-year-old female patient presents to the emergency department with complaints of swelling and bruising to the right groin. Patient reports having an angiogram of the LE on Friday by Dr. Verde. States over the last 2 days she has noticed increased pain, swelling, and bruising. Denies SOA, chest pain, fevers, numbness, or weakness. Patient does take Eliquis. Also reports having a green productive cough for approximately a week. Timing/Duration: 2-3 Days Modifying Factors: worse with Movement Allergies and Home Medications Allergies Coded Allergies: bacitracin (Verified Allergy, Intermediate, "I BREAK OUT IN A RASH ALL OVER.", 08/26/16) neomycin (Verified Allergy, Intermediate, "I BREAK OUT IN A RASH ALL OVER. ", 08/26/16) polymyxin B (Verified Allergy, Intermediate, "I BREAK OUT IN A RASH ALL OVER.", 08/26/16) Penicillins (Verified Allergy, Unknown, NOT SURE KIND REACTION, 08/26/16) ibuprofen (Unverified Allergy, Unknown, 08/26/16) Home Medications Albuterol Sulfate 2.5 Mg/3 Ml Vial.neb, 2.5 MG NEB Q6H PRN for SHORTNESS OF BREATH, (Reported) Albuterol Sulfate 1 Puff Puff, 2 PUFF IH Q4H PRN for SHORTNESS OF BREATH, ( Reported) 1 PUFF = 90 MCG Albuterol Sulfate 2.5 Mg/3 Ml Vial.neb, 2.5 MG IH Q4H PRN for WHEEZING, #25 Ref 0 Prescribed by: SUZI THOMAS on 12/22/16 1347 Alendronate Sodium 70 Mg Tablet, 70 MG PO Sa, (Reported) Alprazolam 0.5 Mg Tablet, 0.5 MG PO TID PRN for ANXIETY, (Reported) Apixaban 5 Mg Tablet, 5 MG PO BID, (Reported) Aripiprazole 5 Mg Tablet, 5 MG PO DAILY, (Reported) Aripiprazole 20 Mg Tablet, 20 MG PO DAILY, (Reported) TAKES ALONG WITH 5MG TABLET Azithromycin 250 Mg Tablet, 250 MG PO UD, #6 Ref 0 TAKE 2 TABLETS TODAY, THEN TAKE 1 TABLET DAILY FOR 4 MORE DAYS Prescribed by: SUZI THOMAS on 12/22/161340 Baclofen 10 Mg Tablet, 10 MG PO BID, (Reported) Baclofen 10 Mg Tablet, 10 MG PO BID, (Reported) Benzonatate 100 Mg Capsule, 1-2 CAP PO Q8H PRN for COUGH, #30 Ref 0 Prescribed by: SUZI THOMAS on 12/22/161340 Budesonide/Formoterol Fumarate 10.2 Gm Hfa.aer.ad, 2 PUFF IH BID, (Reported) Cetirizine HCl 10 Mg Tablet, 10 MG PO DAILY, (Reported) Cholecalciferol (Vitamin D3) 5,000 Unit Capsule, 5,000 UNIT PO WEEK, (Reported) Clonazepam 1 Mg Tablet, 1 MG PO HS, (Reported) Colesevelam HCl 625 Mg Tablet, 625 MG PO BID, (Reported) Diltiazem HCl 240 Mg Cap.er.deg, 240 MG PO DAILY, (Reported) Diphenoxylate HCl/Atropine 1 Each Tablet, 2 TAB PO TID, (Reported) Donepezil HCl 10 Mg Tablet, 10 MG PO DAILY, (Reported) Gabapentin 600 Mg Tablet, 600 MG PO TID, (Reported) Hydralazine HCl 25 Mg Tablet, 25 MG PO TID, (Reported) Hydrocodone/Acetaminophen 1 Each Tablet, 1 EACH PO Q6H PRN for PAIN, #14 Ref 0 Prescribed by: SUZI THOMAS on 12/22/161340 Hydroxyzine HCl 25 Mg Tablet, 25 MG PO TID, (Reported) Magnesium Oxide 250 Mg Tablet, 250 MG PO DAILY, (Reported) Memantine HCl 10 Mg Tablet, 10 MG PO HS, (Reported) Metoprolol Succinate 25 Mg Tab.er.24h, 25 MG PO DAILY, (Reported) Mirabegron 50 Mg Tab.er.24h, 50 MG PO DAILY, (Reported) Montelukast Sodium 10 Mg Tablet, 10 MG PO HS, (Reported) Mv,Ca,Min/Iron Fum/FA/Vit K 1 Each Tablet, 1 EACH PO DAILY, (Reported) Nitroglycerin 0.4 Mg Tab.subl, 0.4 MG PO UD PRN for CHEST PAIN, (Reported) Pantoprazole Sodium 40 Mg Tablet.dr, 40 MG PO BID, (Reported) Prednisone 10 Mg Tab, 10 MG PO DAILY, (Reported) Primidone 250 Mg Tablet, 250 MG PO TID, (Reported) Rifaximin 550 Mg Tablet, 550 MG PO TID, (Reported) Ropinirole HCl 2 Mg Tablet, 2 MG PO HS, (Reported) Simvastatin 20 Mg Tablet, 20 MG PO HS, (Reported) Tiotropium [place] 1 Inh Aerp, 1 CAP IH HS, (Reported) Trazodone HCl 150 Mg Tablet, 150 MG PO HS, (Reported) Trospium Chloride 20 Mg Tablet, 20 MG PO TID, (Reported) Vortioxetine Hydrobromide 20 Mg Tablet, 20 MG PO DAILY, (Reported) Zolpidem Tartrate 5 Mg Tablet, 5 MG PO HS, (Reported) Constitutional: No chills, No dizziness, No fever, No malaise EENTM: no symptoms reported Respiratory: cough, No dyspnea on exertion, No orthopnea, phlegm (green sputum) , No short of breath, No wheezing Cardiovascular: No chest pain, No edema, No palpitations Gastrointestinal: No abdominal pain, No constipation, No diarrhea, No nausea, No vomiting Genitourinary: see HPI, No dysuria, No frequency, No hematuria, pain (rt groin pain) Musculoskeletal: see HPI Skin: see HPI, change in color (ecchymosis rt groin), lumps (rt groin) Psychiatric/Neurological: Denies Numbness, Denies Paresthesia, Denies Tingling , Denies Weakness All Other Systems Reviewed Negative Unless Noted: Yes (Negative excepted noted.) Past Soeugtk-Arpdgm-Rzkffa Hx Patient Social History Alcohol Use: Denies Use Recreational Drug Use: No Smoking Status: Former Smoker Type Used: Cigarettes Former Smoker, Quit: Dec 05, 2016 Recent Foreign Travel: No Contact w/Someone Who Travel: No Recent Infectious Disease Expo: No Recent Hopitalizations: No Immunizations Up To Date Tetanus Booster (TDap): Unknown Date of Pneumonia Vaccine: Nov 11, 2016 Date of Influenza Vaccine: Dec 07, 2015 Seasonal Allergies Seasonal Allergies: Yes Surgeries History of Surgeries: Yes (NECK) Surgeries: Appendectomy, Bladder Surgery, Gallbladder, Orthopedic, Pancreatic Respiratory History of Respiratory Disorde: Yes (OXYGEN AT HS) Respiratory Disorders: Asthma, COPD, Emphysema Cardiovascular History of Cardiac Disorders: Yes Cardiac Disorders: Atrial Fibrillation, High Cholesterol, Hypotension, Irregular Heartbeat, Palpitations Neurological History of Neurological Disord: Yes (PARESTHESIAS OF BILAT LOWER EXT DUE TO FORAMINAL STENOSIS) Neurological Disorders: Headaches /Migraines, Neuropathy 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 System Hx 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 Disorders: No Sexually Transmitted Disease: No HIV/AIDS: No 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 Disorders: Denies Genitourinary Genitourinary Disorders: UTI-Chronic Gastrointestinal History of Gastrointestinal Di: Yes (FREQ DIARRHEA) Gastrointestinal Disorders: Gastroesophageal Reflux, Ulcer Musculoskeletal History of Musculoskeletal Dis: Yes (CHRONIC NECK AND BACK PAIN, CHRONIC HIP PAIN) Musculoskeletal Disorders: Degenerate Disk Disease, Arthritis, Fibromyalgia, Chronic Back Pain Endocrine History of Endocrine Disorders: Yes (DIET CONTROLLED, THYROID NODULES) Endocrine Disorders: Diabetes, Non-Insulin dep HEENT Loss of Vision: Bilateral Hearing Impairment: Denies Cancer History of Cancer: No Psychosocial History of Psychiatric Problem: Yes (ATTEMPTED SUICIDE 26 YRS AGO) Behavioral Health Disorders: Anxiety, Suicide Attempts, Depression Integumentary History of Skin or Integumenta: Yes Skin/Integumentary Disorders: Psoriasis Blood Transfusions History of Blood Disorders: No Adverse Reaction to a Blood Tr: No Reviewed Nursing Assessment Reviewed/Agree w Nursing PMH: Yes Family Medical History Significant Family History: No Pertinent Family Hx Family Medial History: Cardiovascular disease G8 BROTHER (TRIPLE BYPASS) Diabetes mellitus 19 MOTHER FH: COPD (chronic obstructive pulmonary disease) 19 MOTHER FH: breast cancer 19 MOTHER FHx: brain cancer 19 FATHER Physical Exam Vital Signs Vital Sign - Last 12Hours 12/22/16 11:47 Temp 98.1 Pulse 80 Resp 18 B/P (MAP) 121/79 Pulse Ox 97 O2 Delivery Room Air Capillary Refill : Less Than 3 Seconds General Appearance: No Apparent Distress, WD/WN HEENT: PERRL/EOMI, Pharynx Normal Neck: Normal Inspection, Supple Respiratory: No Accessory Muscle Use, No Respiratory Distress, Other (Coarse BS bilaterally in all lung trevizo. cleared with coughing.) Cardiovascular: Regular Rate, Rhythm, No Murmur, Normal Peripheral Pulses Gastrointestinal: Normal Bowel Sounds, No Organomegaly, Non Tender, Soft Back: Normal Inspection Extremity: Normal Capillary Refill, No Calf Tenderness, Pedal Edema (1+ pedal edema bilaterally.), Other (rt groin shows a 2x3 cm area of swelling and faint ecchymosis. TTP. No pulsating mass noted. ) Neurologic/Psychiatric: Alert, Oriented x3, No Motor/Sensory Deficits, Normal Mood/Affect Skin: Normal Color, Warm/Dry, Ecchymosis (rt groin shows a 2x3 cm area of swelling and faint ecchymosis. TTP. No pulsating mass noted. ) Progress/Results/Core Measures Results/Orders Lab Results Laboratory Tests Test 12/22/16 12:27 Range/Units White Blood Count 10.2 4.3-11.0 10^3/uL Red Blood Count 4.49 4.35-5.85 10^6/uL Hemoglobin 13.0 11.5-16.0 G/DL Hematocrit 39 35-52 % Mean Corpuscular Volume 87 80-99 FL Mean Corpuscular Hemoglobin 29 25-34 PG Mean Corpuscular Hemoglobin Concent 33 32-36 G/DL Red Cell Distribution Width 15.6 H 10.0-14.5 % Platelet Count 219 130-400 10^3/uL Mean Platelet Volume 9.9 7.4-10.4 FL Neutrophils (%) (Auto) 73 42-75 % Lymphocytes (%) (Auto) 17 12-44 % Monocytes (%) (Auto) 8 0-12 % Eosinophils (%) (Auto) 3 0-10 % Basophils (%) (Auto) 0 0-10 % Neutrophils # (Auto) 7.4 1.8-7.8 X 10^3 Lymphocytes # (Auto) 1.7 1.0-4.0 X 10^3 Monocytes # (Auto) 0.8 0.0-1.0 X 10^3 Eosinophils # (Auto) 0.3 0.0-0.3 10^3/uL Basophils # (Auto) 0.0 0.0-0.1 10^3/uL Prothrombin Time 14.1 12.2-14.7 SEC INR Comment 1.1 0.8-1.4 Activated Partial Thromboplast Time 31 24-35 SEC Sodium Level 134 L 135-145 MMOL/L Potassium Level 3.9 3.6-5.0 MMOL/L Chloride Level 99 98-107 MMOL/L Carbon Dioxide Level 24 21-32 MMOL/L Anion Gap 11 5-14 MMOL/L Blood Urea Nitrogen 9 7-18 MG/DL Creatinine 0.64 0.60-1.30 MG/DL Estimat Glomerular Filtration Rate > 60 BUN/Creatinine Ratio 14 Glucose Level 137 H 70-105 MG/DL Calcium Level 9.7 8.5-10.1 MG/DL Total Bilirubin 0.4 0.1-1.0 MG/DL Aspartate Amino Transf (AST/SGOT) 23 5-34 U/L Alanine Aminotransferase (ALT/SGPT) 29 0-55 U/L Alkaline Phosphatase 89 40-136 U/L Total Protein 6.4 6.4-8.2 GM/DL Albumin 3.8 3.2-4.5 GM/DL My Orders Orders - SUZI THOMAS Us Right Low Ext [id number] (12/22/16 12:02) Hydrocodone/Apap 10/325 Tablet (Lortab 1 (12/22/16 12:02) Cbc With Automated Diff (12/22/16 12:07) Comprehensive Metabolic Panel (12/22/16 12:07) Protime With Inr (12/22/16 12:07) Partial Thromboplastin Time (12/22/16 12:07) Saline Lock/Iv-Start (12/22/16 12:07) Morphine Injection (Morphine Injection (12/22/16 12:07) Morphine Injection (Morphine Injection (12/22/16 13:17) Saline Lock/Iv-Start (12/22/16 13:17) Vital Signs/I&O Vital Sign - Last 12Hours 12/22/16 11:47 Temp 98.1 Pulse 80 Resp 18 B/P (MAP) 121/79 Pulse Ox 97 O2 Delivery Room Air Blood Pressure Mean: 93 Diagnostic Imaging Diagonstic Imaging: Ultrasound Plain Films/CT/US/NM/MRI: leg Comments FINDINGS: In the right inguinal region is an ill-defined avascular hypoechoic collection now measuring 17 x 11 x 10 mm. This demonstrates no evidence of vascularity. This is most compatible with a hematoma. There are no findings present to suggest pseudoaneurysm or fistula. Arterial and venous waveforms appear appropriate. IMPRESSION: 1. Avascular hypoechoic ill-defined collection in the right groin is compatible with a small hematoma. There are no sonographic findings present to suggest a pseudoaneurysm or arteriovenous fistula. Dictated on workstation # [id number] Reviewed: Reviewed by Me (radiology report reviewed by me) Departure Communication (Admissions) Progress Notes All laboratory and diagnostic findings discussed with the patient. Plan for discharge to home. Patient instructed to follow-up with Dr. Verde and Dr. Clement this week for recheck and call their office Friday for appointment time. Return precautions were discussed with the patient as described in the discharge instructions of this report. Patient verbalizes understanding and agrees with the treatment plan. Impression Impression: Primary Impression: Hematoma of groin Qualified Codes: S30.1XXA - Contusion of abdominal wall, initial encounter Additional Impression: Acute bronchitis Qualified Codes: J20.9 - Acute bronchitis, unspecified Disposition: HOME, SELF-CARE Condition: Improved Departure-Patient Inst. Decision time for Depature: 13:29 Referrals: MARY VERDE MD FACP [facility] FAHAD CLEMENT MD (PCP/Family) Primary Care Physician Patient Instructions: Acute Bronchitis, Adult (DC), HEMATOMA Add. Discharge Instructions: All discharge instructions reviewed with patient and/or family. Voiced understanding. Medications as instructed. Continue usual home medications. Ice pack or heating pad as needed for pain to the right groin. Elevate the right lower extremity on pillows. Follow-up with Dr. Bains and Dr. Verde is outpatient this week for recheck, call first thing Friday for appointment time. Return to the emergency department for worsened pain, fever, redness, drainage, shortness of breath, chest pain, or any other concerns. Scripts Albuterol Sulfate (Albuterol Sulfate) 2.5 Mg/3 Ml Vial.neb 2.5 MG IH Q4H Y for WHEEZING, #25 EA 0 Refills Prov: SUZI THOMAS 12/22/16 Hydrocodone/Acetaminophen (Hydrocodon -Acetaminophen 5-325) 1 Each Tablet 1 EACH PO Q6H Y for PAIN, #14 TAB 0 Refills Prov: SUZI THOMAS 12/22/16 Benzonatate (Tessalon Perle) 100 Mg Capsule 1-2 CAP PO Q8H Y for COUGH, #30 CAP 0 Refills Prov: SUZI THOMAS 12/22/16 Azithromycin (Zithromax) 250 Mg Tablet 250 MG PO UD, #6 TAB 0 Refills TAKE 2 TABLETS TODAY, THEN TAKE 1 TABLET DAILY FOR 4 MORE DAYS Prov: SUZI THOMAS 12/22/16 SUZI THOMAS Dec 22, 2016 12:20
[2016-12-22 12:33] LABS: BASOPHILS % (AUTO) 0 % (0-10); EOSINOPHILS # (AUTO) 0.3 10^3/uL (0.0-0.3); EOSINOPHILS % (AUTO) 3 % (0-10); LYMPHOCYTES # (AUTO) 1.7 X 10^3 (1.0-4.0); LYMPHOCYTES % (AUTO) 17 % (12-44); MEAN CORPUSCULAR HEMOGLOBIN 29 PG (25-34); MEAN CORPUSCULAR HGB CONC 33 G/DL (32-36); MEAN CORPUSCULAR VOLUME 87 FL (80-99); MEAN PLATELET VOLUME 9.9 FL (7.4-10.4); MONOCYTES # (AUTO) 0.8 X 10^3 (0.0-1.0); MONOCYTES % (AUTO) 8 % (0-12); NEUTROPHILS # (AUTO) 7.4 X 10^3 (1.8-7.8); NEUTROPHILS % (AUTO) 73 % (42-75); PLATELET COUNT 219 10^3/uL (130-400); RED BLOOD COUNT 4.49 10^6/uL (4.35-5.85); RED CELL DISTRIBUTION WIDTH 15.6 % (10.0-14.5); WHITE BLOOD COUNT 10.2 10^3/uL (4.3-11.0)
[2016-12-22 12:42] LABS: INR 1.1 (0.8-1.4); PROTHROMBIN TIME PATIENT 14.1 SEC (12.2-14.7)
[2016-12-22 12:52] LABS: ALANINE AMINOTRANSFERASE 29 U/L (0-55); ALBUMIN 3.8 GM/DL (3.2-4.5); ANION GAP 11 MMOL/L (5-14); ASPARTATE AMINO TRANSFERASE 23 U/L (5-34); BILIRUBIN,TOTAL 0.4 MG/DL (0.1-1.0); BLOOD UREA NITROGEN 9 MG/DL (7-18); BUN/CREATININE RATIO 14; CALCIUM 9.7 MG/DL (8.5-10.1); CARBON DIOXIDE 24 MMOL/L (21-32); CHLORIDE 99 MMOL/L (98-107); CREATININE SERUM 0.64 MG/DL (0.60-1.30); GFR ESTIMATED > 60; GLUCOSE 137 MG/DL (70-105); POTASSIUM 3.9 MMOL/L (3.6-5.0); SODIUM 134 MMOL/L (135-145); TOTAL PROTEIN 6.4 GM/DL (6.4-8.2)
--- NOTE | 2016-12-22 13:18 | Diagnostic Imaging Report ---
Right lower extremity arterial Dopplers. INDICATION: Heart catheter 4 days prior. Palpable abnormality in right groin. FINDINGS: In the right inguinal region is an ill-defined avascular hypoechoic collection now measuring 17 x 11 x 10 mm. This demonstrates no evidence of vascularity. This is most compatible with a hematoma. There are no findings present to suggest pseudoaneurysm or fistula. Arterial and venous waveforms appear appropriate. IMPRESSION: 1. Avascular hypoechoic ill-defined collection in the right groin is compatible with a small hematoma. There are no sonographic findings present to suggest a pseudoaneurysm or arteriovenous fistula. Dictated by: Dictated on workstation # [id number]
[2016-12-22] MEDS ORDERED: BENZ-13 PO (13:41)
[2016-12-22] MEDS ORDERED: AZIT250T PO (13:41)
[2016-12-22] MEDS ORDERED: HYDR-3812 PO (13:41)
[2016-12-22] MEDS ORDERED: ALBU2.5V4 IH (13:47)
[2016-12-22 13:52] VITALS: BP 117/78
[2017-02-09] MEDS ORDERED: NYST1000 PO (18:01)
== END 2016-12-22 13:57 | disposition home or self-care (01) ==
LOC: EDUNIT# 11:43 → ER 11:44
DX: S30.1XXA Contusion of abdominal wall, initial encounter (principal); J20.9 Acute bronchitis, unspecified; J43.9 Emphysema, unspecified; I48.91 Unspecified atrial fibrillation; E78.00 Pure hypercholesterolemia, unspecified; G43.909 Migraine, unspecified, not intractable, without status migrainosus; K21.9 Gastro-esophageal reflux disease without esophagitis; M19.90 Unspecified osteoarthritis, unspecified site; E11.40 Type 2 diabetes mellitus with diabetic neuropathy, unspecified; F41.9 Anxiety disorder, unspecified; F32.9 Major depressive disorder, single episode, unspecified; Z91.5 Personal history of self-harm; Z82.49 Family history of ischemic heart disease and other diseases of the circulatory system; Z80.8 Family history of malignant neoplasm of other organs or systems; Z87.440 Personal history of urinary (tract) infections; Z80.3 Family history of malignant neoplasm of breast; Z79.01 Long term (current) use of anticoagulants; Z87.891 Personal history of nicotine dependence; Z90.49 Acquired absence of other specified parts of digestive tract; X58.XXXA Exposure to other specified factors, initial encounter
CPT/HCPCS: 36415; 80053; 85025; 85610; 85730; 93926; 96374; 96376

== ENCOUNTER 2016-12-23 12:49 | Emergency (ER) | payer MEDICARE, MEDICAID ==
[~2016-12-23] VITALS: Ht 162.6 cm; Wt 70.3 kg
[~2016-12-23 12:49] MED LIST changes: +ALBU2.5V4 IH; +AZIT250T PO; +BENZ-13 PO; +HYDR-3812 PO; +METO-270 PO; -METO-387 PO; -NAPR-1070 PO; +NAPR550T PO
--- OUTSIDE RECORDS SUMMARY | 2016-12-23 13:15 | XMS REPORT | Continuity of Care Document ---
Author Author [employer] [facility] Address Unknown Phone Unavailable Care Team Providers Care Field Service Analyst Name Role Phone [employer] Unavailable Unavailable Problems Medications Allergies, Adverse Reactions, Alerts Immunizations Results Vital Signs Encounters Location Location Details Encounter Type Encounter Number Reason For Visit Attending Provider ADM Date DC Date Status [place] [facility] [id number] . [place] [facility] [place] Active [employer] [facility] OUTPATIENT [id number] DENIS FRANCO 09/23/2016 09/23/2016 Active [facility] Jeremy WHEELER Active [facility] Procedures Plan of Care Social History Assessment and Plan Family History Value Date Source Advance Directives Order Name Results Value Date Source
--- OUTSIDE RECORDS SUMMARY | 2016-12-23 13:15 | XMS REPORT | Clinical Summary ---
Author Author [facility] Organization [facility] Address Unknown Phone Unavailable Care Team Providers Care Web Portal Developer Name Role Phone PCP Unavailable Source Comments Some departments are not documenting in the electronic medical record. If you do not see the information that you expected, contact Release of Information in the Health Information Management department at [phone] for further assistance in locating additional records.[facility] Allergies Active Allergy Reactions Severity Noted [...] 40 mg capsule daily before meals. 17 mirabegron(+) ER Take 1 Tab by mouth daily 30 Tab 3 11/12/19 Active (MYRBETRIQ) 50 mg for 120 days. 17 17 tabletIndications: Indications: URINARY URGE URINARY URGE INCONTINENCE INCONTINENCE trospium(+) (SANCTURA) 20 Take 1 tablet by mouth 180 tablet 3 Active mg tablet three times daily before 17 meals. trospium(+) (SANCTURA) 20 TAKE ONE TABLET BY MOUTH 30 Tab 1 09/10/19 12/17/19 Discontin mg tablet DAILY 17 17 ued trospium(+) (SANCTURA) 20 Take 1 Tab by mouth twice 60 Tab 2 09/25/19 12/17/19 Discontin mg tablet daily. 17 17 ued Active Problems Problem Noted Date Urge incontinence [...] Heartburn 01/19/2015 COPD (chronic obstructive pulmonary disease) ([facility]) 05/18/2012 Diabetes mellitus ([facility]) 05/18/2012 TIA (transient ischemic attack) 05/18/2012 Diarrhea 05/18/2012 Encounters Date Type Specialty Care Team Description 12/20/2016 Refill [facility] Gilles Wilson MD 12/16/2016 Telephone [facility] Videotape Sales Representative Rain Tariq MD General Question 12/02/2016 Telephone [facility] Gilles Wilson MD Medication Question 11/15/2016 Refill [facility] Gilles Wilson MD 11/11/2016 Telephone [facility] Gilles Wilson MD General Question 10/03/2016 Telephone [facility] Gilles Wilson MD Medication Question 09/30/2016 Telephone [facility] Gilles Wilson MD General Question 09/27/2016 Telephone [facility] Gilles Wilson MD Results; Referral 09/24/2016 Telephone [facility] Gilles Wilson MD Medication Update 09/23/2016 [facility] Gilles Ness MD Hematuria, unspecified Encounter [...] 36.8 C (98.2 F) 06/13/2015 1:02 PM ADMINISTRATIVE TECHNICIAN Respiratory Rate 20 10/25/2015 10:12 AM CDT [...] 07/21/2003 SCREENING SHINGLES VACCINE 2013 INFLUENZA VACCINE 01/05/2017 Results * UA REFLEX CULTURE LABEL (09/23/2016 9:30 AM) Component Value Ref Range UA Reflex Culture LAB LABEL Specimen Performing Laboratory MAIN LAB [address] [place] [address] * URINALYSIS MICROSCOPIC REFLEX TO CULTURE (09/23/2016 [...] 5 Specimen Performing Laboratory MAIN LAB [address] [id number] * URINALYSIS DIPSTICK REFLEX TO CULTURE (09/23/2016 9:30 AM) Component Value Ref Range Color,UA STRAW Turbidity,UA CLEAR CLEAR-CLEAR Specific [place]-Urine 1.005 1.003 - 1.035 pH,UA 6.0 5.0 - 8.0 Protein,UA NEG NEG-NEG Glucose,UA NEG NEG-NEG Ketones,UA NEG NEG-NEG Bilirubin,UA NEG NEG-NEG Blood,UA 1+ (A) NEG-NEG Urobilinogen,UA NORMAL NORM-NORMAL Nitrite,UA NEG NEG-NEG Leukocytes,UA NEG NEG-NEG Urine Ascorbic Acid, UA NEG NEG-NEG Specimen Performing Laboratory MAIN LAB [address] [id number] * BASIC METABOLIC PANEL (09/23/2016 9:27 AM) [...] Specimen Performing Laboratory Blood MAIN LAB [address] [id number] * POC URINE DIPSTICK MANUAL READ (09/23/2016 8:21 AM) Component Value Ref Range Urine Glucose POC negative Urine Bilirubin POC negative Urine Ketone POC negative Urine Specific [place] 1.010 POC Urine Blood POC negative Urine [...]
--- OUTSIDE RECORDS SUMMARY | 2016-12-23 13:16 | XMS REPORT | Encounter Summary ---
Author Author [facility] Organization [facility] Address Unknown Phone Unavailable Care Team Providers Care Toolmaker Grade Three Name Role Phone PCP Unavailable Reason for Visit * Reason Comments General Question Encounter Details Date Type Department Care Team Description 11/11/[address] [facility] Gilles Ness MD General Question Physicians - OBGYN [address] [place] [address] OFFICE BLDG [phone] [place] [address] Social History Tobacco Use Types [...]
--- OUTSIDE RECORDS SUMMARY | 2016-12-23 13:16 | XMS REPORT | Encounter Summary ---
Author Author [facility] Organization [facility] Address Unknown Phone Unavailable Care Team Providers Care Tar And Ammonia Pump Operator Name Role Phone PCP Unavailable Reason for Referral * Consult, Test & Treat Status Reason Specialty Diagnoses / Referred By Referred To Procedures Contact Contact New Request Specialty Nephrology Diagnoses Gilles Ness MD Services Hematuria [address] [place] [address] Reason for Visit * Reason Comments Test/procedure Cystoscopy Possible Encounter Details Date Type Department Care Team Description 09/23/2016 Office Visit [facility] Gilles Ness MD Hematuria (Primary Physicians - OBGYN [address] Dx);Suspected urinary [address] [place] [address] tract infection;[place] [address] dysfunction 5TH FLOOR POD C [phone] [place] [address] [phone] Social History Tobacco Use Types Packs/Day Years [...] Performing Laboratory Blood [facility] MAIN [facility] [address] [place] [address] * POC URINE DIPSTICK MANUAL READ (09/23/2016 8:21 AM) Component Value Ref Range Urine Glucose POC negative Urine Bilirubin POC negative Urine Ketone POC negative Urine Specific [place] 1.010 POC Urine Blood POC negative Urine [...]
--- OUTSIDE RECORDS SUMMARY | 2016-12-23 13:16 | XMS REPORT | Encounter Summary ---
Author Author [facility] Organization [facility] Address Unknown Phone Unavailable Care Team Providers Care Singing Telegram Performer Name Role Phone PCP Unavailable Reason for Visit * Reason Comments Medication Refill Encounter Details Date Type Department Care Team Description 11/15/2016 Refill [facility] Gilles Ness MD Physicians - OBGYN [address] [place] [address] 5TH FLOOR POD C [phone] [place] [address] [phone] Social History Tobacco Use Types Packs/Day Years [...]
--- OUTSIDE RECORDS SUMMARY | 2016-12-23 13:16 | XMS REPORT | Encounter Summary ---
Author Author [facility] Organization [facility] Address Unknown Phone Unavailable Care Team Providers Care Ticket Collector Or Usher Name Role Phone PCP Unavailable Reason for Visit * Reason Comments Medication Question Encounter Details Date Type Department Care Team Description 10/03/[address] [facility] Gilles Ness MD Medication Question Physicians - OBGYN [address] [place] [address] 5TH FLOOR POD C [phone] [place] [address] [phone] Social History Tobacco Use Types Packs/Day Years [...]
--- OUTSIDE RECORDS SUMMARY | 2016-12-23 13:16 | XMS REPORT | Encounter Summary ---
Author Author [facility] Organization [facility] Address Unknown Phone Unavailable Care Team Providers Care Pattern Attendant Name Role Phone PCP Unavailable Reason for Visit * Reason Comments Medication Refill Encounter Details Date Type Department Care Team Description 12/20/2016 Refill [facility] Gilles Ness MD Physicians - OBGYN [address] [place] [address] 5TH FLOOR POD C [phone] [place] [address] [phone] Social History Tobacco Use Types Packs/Day Years [...]
--- OUTSIDE RECORDS SUMMARY | 2016-12-23 13:16 | XMS REPORT | Encounter Summary ---
Author Author [facility] Organization [facility] Address Unknown Phone Unavailable Care Team Providers Care Industrial Machinery Mechanic Name Role Phone PCP Unavailable Reason for Visit * Reason Comments Medication Question Encounter Details Date Type Department Care Team Description 12/02/2016 Telephone [facility] Gilles Ness MD Medication Question Physicians - OBGYN [address] F[address] [place] [place] [address] OFFICE BLDG [phone] [place] [address] Social History Tobacco Use Types [...]
--- OUTSIDE RECORDS SUMMARY | 2016-12-23 13:16 | XMS REPORT | Encounter Summary ---
Author Author [facility] Organization [facility] Address Unknown Phone Unavailable Care Team Providers Care Outdoor Emergency Care Technician Name Role Phone PCP Unavailable Reason for Visit * Reason Comments Medication Update Encounter Details Date Type Department Care Team Description 09/24/2016 Telephone [facility] Gilles Ness MD Medication Update Physicians - OBGYN [address] [place] [address] 5TH FLOOR POD C [phone] [place] [address] [phone] Social History Tobacco Use Types Packs/Day Years [...]
--- OUTSIDE RECORDS SUMMARY | 2016-12-23 13:16 | XMS REPORT | Encounter Summary ---
Author Author [facility] Organization [facility] Address Unknown Phone Unavailable Care Team Providers Care Medical Appointment Scheduler Name Role Phone PCP Unavailable Reason for Visit * Reason Comments General Question Encounter Details Date Type Department Care Team Description 12/16/2016 Telephone [facility] Rain Tariq MD General Question Physicians - OBGYN [address] [place] [address] OFFICE BLDG [phone] [place] [address] Social History Tobacco Use Types [...]
--- OUTSIDE RECORDS SUMMARY | 2016-12-23 13:16 | XMS REPORT | Encounter Summary ---
Author Author [facility] Organization [facility] Address Unknown Phone Unavailable Care Team Providers Care Medical Videographer Name Role Phone PCP Unavailable Reason for Visit * Reason Comments General Question Encounter Details Date Type Department Care Team Description 09/30/2016 Telephone [facility] Gilles Ness MD General Question Physicians - OBGYN [address] [place] [address] 5TH FLOOR POD C [phone] [place] [address] [phone] Social History Tobacco Use Types Packs/Day Years [...]
--- OUTSIDE RECORDS SUMMARY | 2016-12-23 13:16 | XMS REPORT | Encounter Summary ---
Author Author [facility] Organization [facility] Address Unknown Phone Unavailable Care Team Providers Care Transportation Job Titles Name Role Phone PCP Unavailable Reason for Visit * Reason Comments Results Referral Encounter Details Date Type Department Care Team Description 09/27/2016 Telephone [facility] Gilles Ness MD Results; Referral Physicians - OBGYN [address] [place] [address] 5TH FLOOR POD C [phone] [place] [address] [phone] Social History Tobacco Use Types Packs/Day Years [...]
--- OUTSIDE RECORDS SUMMARY | 2016-12-23 13:16 | XMS REPORT | Encounter Summary ---
Author Author [facility] Organization [facility] Address Unknown Phone Unavailable Care Team Providers Care Dry House Wheeler Name Role Phone PCP Unavailable Encounter Details Date Type Department Care Team Description 09/23/2016 [facility] Gilles Ness MD Hematuria, unspecified Encounter [address] [place] [address] [address] [place] [address] [phone] Social History Tobacco Use Types Packs/Day Years [...] ONE TABLET BY MOUTH 30 Tab 1 201612/16/2016 mg tablet DAILY as of this encounter Plan of Treatment Not on fileas of this encounter Results * UA REFLEX CULTURE LABEL (09/23/2016 9:30 AM) Component Value Ref Range UA Reflex Culture LAB LABEL Specimen Performing Laboratory MAIN LAB [address] [place] [address] * URINALYSIS MICROSCOPIC REFLEX TO CULTURE (09/23/2016 [...] 5 Specimen Performing Laboratory MAIN LAB [address] [place] [address] * URINALYSIS DIPSTICK REFLEX TO CULTURE (09/23/2016 9:30 AM) Component Value Ref Range Color,UA STRAW Turbidity,UA CLEAR CLEAR-CLEAR Specific [place]-Urine 1.005 1.003 - 1.035 pH,UA 6.0 5.0 - 8.0 Protein,UA NEG NEG-NEG Glucose,UA NEG NEG-NEG Ketones,UA NEG NEG-NEG Bilirubin,UA NEG NEG-NEG Blood,UA 1+ (A) NEG-NEG Urobilinogen,UA NORMAL NORM-NORMAL Nitrite,UA NEG NEG-NEG Leukocytes,UA NEG NEG-NEG Urine Ascorbic Acid, UA NEG NEG-NEG Specimen Performing Laboratory MAIN LAB [address] [place] [address] * BASIC METABOLIC PANEL (09/23/2016 9:27 AM) [...] Performing Laboratory Blood [facility] MAIN LAB [address] [place] [address] in this encounter Visit Diagnoses Diagnosis Hematuria Hematuria, unspecified in this encounter Admitting Diagnoses Diagnosis Hematuria, unspecified in this encounter
--- OUTSIDE RECORDS SUMMARY | 2016-12-23 13:20 | XMS REPORT ---
Author Author FAHAD CLEMENT [facility] Address [address] [place] [address] Care Team Providers Care Marketing Strategy Analyst Name Role Phone FAHAD CLEMENT Unavailable PROBLEMS Type Condition ICD9-CM Code SIO04-RR Code Onset Dates Condition Status SNOMED Code Problem Bilateral low back pain without sciatica M54.5 Active 866572752 Problem Osteopenia M85.80 Active 399118597 Problem Postmenopausal Z78.0 Active 28226215 Problem Xeroderma Q80.9 Active 98448518 Problem COPD (chronic obstructive pulmonary disease) J44.9 Active 48746760 Problem Dementia without behavioral disturbance, unspecified dementia type F03.90 Active 04815300 Problem Osteoporosis M81.0 Active 08575420 Problem Hyperlipidemia E78.5 Active 30728434 Problem Cigarette nicotine dependence without complication F17.210 Active 18266949 Problem Screening breast examination Z12.39 Active 208532188 Problem Arthritis M19.90 Active 7927710 Problem Vascular dementia without behavioral disturbance F01.50 Active 00707271 Problem History of common bile duct surgery Z98.89 Active 043256648 Problem Major depressive disorder, recurrent episode, moderate F33.1 Active 620002722 Problem 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.118 Active 0520752391218 Problem Barretts esophagus K22.70 Active 878072635 Problem Chronic pain syndrome G89.4 Active 672381701 Problem Generalized anxiety disorder F41.1 Active 401817045 Problem Essential tremor G25.0 Active 67974940 Problem Cervicalgia M54.2 Active 0739004190356 Problem Colon polyp K63.5 Active 83109252 Problem Gastroparesis K31.84 Active 046125036 Problem Paroxysmal atrial fibrillation I48.0 Active 659793388 Problem 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
--- OUTSIDE RECORDS SUMMARY | 2016-12-23 13:52 | XMS REPORT ---
Author Author FAHAD CLEMENT [facility] Address [address] [place] [address] Care Team Providers Care Staff Interpreter Name Role Phone FAHAD CLEMENT Unavailable PROBLEMS Type Condition ICD9-CM Code LBF64-SC Code Onset Dates Condition Status SNOMED Code Problem Bilateral low back pain without sciatica M54.5 Active 947445558 Problem Osteopenia M85.80 Active 824978598 Problem Postmenopausal Z78.0 Active 20872475 Problem Xeroderma Q80.9 Active 42569476 Problem COPD (chronic obstructive pulmonary disease) J44.9 Active 58336928 Problem Dementia without behavioral disturbance, unspecified dementia type F03.90 Active 54685907 Problem Osteoporosis M81.0 Active 38640528 Problem Hyperlipidemia E78.5 Active 52409326 Problem Cigarette nicotine dependence without complication F17.210 Active 09773436 Problem Screening breast examination Z12.39 Active 465865915 Problem Arthritis M19.90 Active 1142438 Problem Vascular dementia without behavioral disturbance F01.50 Active 05657287 Problem History of common bile duct surgery Z98.89 Active 882537075 Problem Major depressive disorder, recurrent episode, moderate F33.1 Active 735685636 Problem Coronary artery disease involving [place] coronary artery of [place] 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 I25.118 Active 7596022338426 Problem Barretts esophagus K22.70 Active 236807142 Problem Chronic pain syndrome G89.4 Active 877291194 Problem Generalized anxiety disorder F41.1 Active 197705205 Problem Essential tremor G25.0 Active 30935959 Problem Cervicalgia M54.2 Active 8218830976748 Problem Colon polyp K63.5 Active 08350767 Problem Gastroparesis K31.84 Active 667897157 Problem Paroxysmal atrial fibrillation I48.0 Active 377453147 Problem 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
--- OUTSIDE RECORDS SUMMARY | 2016-12-23 14:07 | XMS REPORT ---
Author Author FAHAD CLEMENT [facility] Address [address] [place] [address] Care Team Providers Care Header Up Name Role Phone FAHAD CLEMENT Unavailable PROBLEMS Type Condition ICD9-CM Code XJH12-OM Code Onset Dates Condition Status SNOMED Code Problem Bilateral low back pain without sciatica M54.5 Active 082814441 Problem Osteopenia M85.80 Active 400542286 Problem Postmenopausal Z78.0 Active 24698664 Problem Xeroderma Q80.9 Active 47152551 Problem COPD (chronic obstructive pulmonary disease) J44.9 Active 38102980 Problem Dementia without behavioral disturbance, unspecified dementia type F03.90 Active 15788377 Problem Osteoporosis M81.0 Active 09243126 Problem Hyperlipidemia E78.5 Active 38012128 Problem Cigarette nicotine dependence without complication F17.210 Active 01407640 Problem Screening breast examination Z12.39 Active 543842497 Problem Arthritis M19.90 Active 4378212 Problem Vascular dementia without behavioral disturbance F01.50 Active 77317873 Problem History of common bile duct surgery Z98.89 Active 819915400 Problem Major depressive disorder, recurrent episode, moderate F33.1 Active 711703025 Problem 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.118 Active 1995434776281 Problem Barretts esophagus K22.70 Active 038215761 Problem Chronic pain syndrome G89.4 Active 266696977 Problem Generalized anxiety disorder F41.1 Active 089300291 Problem Essential tremor G25.0 Active 37314148 Problem Cervicalgia M54.2 Active 3036363663580 Problem Colon polyp K63.5 Active 43827315 Problem Gastroparesis K31.84 Active 718802199 Problem Paroxysmal atrial fibrillation I48.0 Active 763572153 Problem 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
--- OUTSIDE RECORDS SUMMARY | 2016-12-23 14:07 | XMS REPORT ---
Author Author FAHAD CLEMENT [facility] Address [address] [place] [address] Care Team Providers Care Manager Play Name Role Phone FAHAD CLEMENT Unavailable PROBLEMS Type Condition ICD9-CM Code FLD23-OD Code Onset Dates Condition Status SNOMED Code Problem Bilateral low back pain without sciatica M54.5 Active 115610253 Problem Osteopenia M85.80 Active 619784837 Problem Postmenopausal Z78.0 Active 13605208 Problem Xeroderma Q80.9 Active 74330166 Problem COPD (chronic obstructive pulmonary disease) J44.9 Active 30401999 Problem Dementia without behavioral disturbance, unspecified dementia type F03.90 Active 10475278 Problem Osteoporosis M81.0 Active 76297582 Problem Hyperlipidemia E78.5 Active 18489487 Problem Cigarette nicotine dependence without complication F17.210 Active 01930734 Problem Screening breast examination Z12.39 Active 223447613 Problem Arthritis M19.90 Active 5630287 Problem Vascular dementia without behavioral disturbance F01.50 Active 40209186 Problem History of common bile duct surgery Z98.89 Active 367081377 Problem Major depressive disorder, recurrent episode, moderate F33.1 Active 609728385 Problem Coronary artery disease involving [place] coronary artery of [place] 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 I25.118 Active 2956881741112 Problem Barretts esophagus K22.70 Active 121255118 Problem Chronic pain syndrome G89.4 Active 838319135 Problem Generalized anxiety disorder F41.1 Active 102935090 Problem Essential tremor G25.0 Active 16650434 Problem Cervicalgia M54.2 Active 7764119708973 Problem Colon polyp K63.5 Active 01756099 Problem Gastroparesis K31.84 Active 966067013 Problem Paroxysmal atrial fibrillation I48.0 Active 063193081 Problem 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
--- OUTSIDE RECORDS SUMMARY | 2016-12-23 14:12 | XMS REPORT ---
Author Author FAHAD CLEMENT [facility] Address [address] [place] [address] Care Team Providers Care International Marketing Specialist Name Role Phone FAHAD CLEMENT Unavailable PROBLEMS Type Condition ICD9-CM Code GRX69-ZR Code Onset Dates Condition Status SNOMED Code Problem Bilateral low back pain without sciatica M54.5 Active 640301457 Problem Osteopenia M85.80 Active 141610293 Problem Postmenopausal Z78.0 Active 07135667 Problem Xeroderma Q80.9 Active 19251601 Problem COPD (chronic obstructive pulmonary disease) J44.9 Active 61428815 Problem Dementia without behavioral disturbance, unspecified dementia type F03.90 Active 95994649 Problem Osteoporosis M81.0 Active 42722704 Problem Hyperlipidemia E78.5 Active 89880934 Problem Cigarette nicotine dependence without complication F17.210 Active 25019996 Problem Screening breast examination Z12.39 Active 580916414 Problem Arthritis M19.90 Active 4500431 Problem Vascular dementia without behavioral disturbance F01.50 Active 19734050 Problem History of common bile duct surgery Z98.89 Active 777147871 Problem Major depressive disorder, recurrent episode, moderate F33.1 Active 965628620 Problem Coronary artery disease involving [place] coronary artery of [place] 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 I25.118 Active 2856882359824 Problem Barretts esophagus K22.70 Active 361061877 Problem Chronic pain syndrome G89.4 Active 795171104 Problem Generalized anxiety disorder F41.1 Active 389279460 Problem Essential tremor G25.0 Active 56769450 Problem Cervicalgia M54.2 Active 3453055782166 Problem Colon polyp K63.5 Active 89398176 Problem Gastroparesis K31.84 Active 031888263 Problem Paroxysmal atrial fibrillation I48.0 Active 916468311 Problem 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 Active 47629124 ALLERGIES Substance Reaction Event Type Date Status Penicillin V Potassium rash Drug Allergy Apr, Active Neosporin rash Drug Allergy Apr, Active Ibuprofen rash Drug Allergy Apr, Active Glipizide hives, nausea Drug Allergy Apr, Active SOCIAL HISTORY No smoking Hx information available PLAN OF CARE Activity Details Follow Up 3 Months Reason: VITAL SIGNS Height 64 in 2016-04-09 Weight 141.6 lbs 2016-04-09 Temperature 99.0 degrees Fahrenheit 2016-04-09 Heart Rate 72 bpm 2016-04-09 Respiratory Rate 18 2016-04-09 BMI 24.30 kg/m2 2016-04-09 Blood pressure systolic 108 mmHg 2016-04-09 Blood pressure diastolic 62 mmHg 2016-04-09 MEDICATIONS Medication Instructions Dosage Frequency Start Date End Date Duration Status Eliquis 5 MG Orally 2 times a day 12h Active Lomotil 2.5-0.025 MG TAKE 2 TABLETS FOUR TIMES DAILY (MUST LAST 30 DAY SUPPLY EACH FILL) 30 Active HydrOXYzine HCl 25 MG Orally every 8 hrs 1 tablet as needed 8h 30 days Active Omeprazole 40 MG Orally Once a day 1 capsule 24h Active Donepezil Hydrochloride Active Oxygen 5 inhalation all the time Active Albuterol Sulfate 2.5 mg /3 mL (0.083 %) 1 Each by Inhalation route every 4 hours for cough and wheeze PRN for wheezing or cough Jun, Active Ventolin HFA 108 (90 Base) MCG/ACT INHALE 2 PUFFS EVERY 4 HOURS NEEDED 16 Active Primidone 250mg Orally Three times a day 1 tablet 8h Active Nitroglycerin 0.4 MG Active Tiotropium [place] Monohydrate 18 MCG Inhalation Once a day 1 capsule 24h Active Namenda 10 MG TAKE 1 TABLET ONE TIME DAILY 90 Active Trintellix 20 MG Orally Once a day 1 tablet 24h Dec, 30 days Active Singulair 10 MG Orally Once a day take 1 tablet (10 mg) by oral route once daily in the evening 24h 07 Oct, 2013 Active Toprol XL 100 MG Orally Once a day 1 tablet 24h Active Topamax 25 MG Orally Twice a day 1 AM, 2 hs 12h Active Fluticasone Propionate 50 MCG/ACT Nasally 2 times a day 2 sprays in each nostril 12h Active Ambien 5 MG Orally Once a day 1 tablet at bedtime 24h Jul, 30 days Active Cyclobenzaprine HCl 10 Orally Once a day 2 tablet 24h 30 Active Ropinirole HCl 2 MG TAKE 1 TABLET ONE TIME DAILY AT BEDTIME 90 Active Alendronate Sodium 70 MG TAKE 1 TABLET EVERY WEEK 84 Active Gabapentin 600 MG TAKE 1 TABLET THREE TIMES DAILY (CHANGE IN DIRECTIONS) 90 Active Trazodone HCl 150 MG Orally Once a day 1 tablet at bedtime as needed 24h Dec, 30 days Active Lomotil 2.5-0.025 TAKE TWO TABLETS BY MOUTH FOUR TIMES A DAY. MUST LAST 30 DAYS 30 Active Abilify 15 MG Orally Once a day 1 tablet 24h Jun, 30 days Active Xolair 150 mg inject 1.2 milliliters (150 mg) by subcutaneous route every 4 weeks Sep, Active Nicotine Step 1 21 MG/24HR Transdermal Once a day 1 patch to skin 24h Apr, Jun, 30 day(s) Active Hydrocodone-Acetaminophen 7.5-325 MG Orally every 6 hrs 1 tablet as needed 6h Active Simvastatin 20mg Orally Once a day 1 tablet in the evening 24h Active Xanax 0.5 MG Orally Three times a day 1 tablet 8h Mar, Active Symbicort 160-4.5 MCG/ACT INHALE 2 PUFFS TWICE DAILY, IN THE MORNING AND IN THE EVENING 90 Active RESULTS Name Result Date Reference Range A1C (IN HOUSE) 2016-04-09 A1C IN HOUSE 5.2 4.3 - 5.6 % Previous A1c 5.7 Lot [id number] Exp date Jan 2018 MICROALBUMIN, URINE (IN HOUSE) 2016-04-09 MICROALBUMIN normal Lot # [id number] Exp date 02/2017 Clarity clear Color yellow ALB 30 CRE 100 A:C (IN HOUSE) <30 Control normal Control Lot # Exp date PROCEDURES Procedure Date Ordered Related Diagnosis Body Site GLYCATED HEMOGLOBIN TEST Apr 09, 2016 [facility] VISIT ESTABLISHED PATIENT Apr 09, 2016 MICROALBUMIN, SEMIQUANT Apr 09, 2016 Office Visit, Est Pt., Level 2 Apr 09, 2016 IMMUNIZATIONS No Known Immunizations
--- NOTE | 2016-12-23 14:14 | ED General ---
General Chief Complaint: General Problems/Pain Stated Complaint: GROIN PAIN/KNOT Nursing Triage Note: PT CO OF R SIDED GROIN PAIN, STATES HAD HEART CATH LAST FRIDAY, STATES HAS INCREASED PAIN AND SWELLING INCREASED FROM YESTERDAY WHEN SEEN IN ED. PT STATES WENT TO SEE DR VERDE AND OFFICE STAFF TOLD HER IT WOULD GO AWAY AND PAIN WOULD GET BETTER Nursing Sepsis Screen: No Definite Risk Source of Information: Patient Exam Limitations: No Limitations History of Present Illness Time Seen by Provider: 14:12 Initial Comments To ER with right groin pain. She had a peripheral angiogram last Friday. This was done here. She was seen here yesterday for swelling and a knot. She had an workup done which failed to reveal a pseudoaneurysm on ultrasound or evidence of retroperitoneal bleed based on lab work. She was given a shot of morphine here and then sent home with a prescription for hydrocodone. She took the last dose of hydrocodone at 11 a.m. today and denies any improvement. She states she went by Dr. Verde's office today and he was not in. She states that her pain persists and the knot seems larger. Timing/Duration: 1-2 Days Severity: Moderate Allergies and Home Medications Allergies Coded Allergies: bacitracin (Verified Allergy, Intermediate, "I BREAK OUT IN A RASH ALL OVER.", 08/26/16) neomycin (Verified Allergy, Intermediate, "I BREAK OUT IN A RASH ALL OVER. ", 08/26/16) polymyxin B (Verified Allergy, Intermediate, "I BREAK OUT IN A RASH ALL OVER.", 08/26/16) Penicillins (Verified Allergy, Unknown, NOT SURE KIND REACTION, 08/26/16) ibuprofen (Unverified Allergy, Unknown, 08/26/16) Home Medications Albuterol Sulfate 2.5 Mg/3 Ml Vial.neb, 2.5 MG NEB Q6H PRN for SHORTNESS OF BREATH, (Reported) Albuterol Sulfate 1 Puff Puff, 2 PUFF IH Q4H PRN for SHORTNESS OF BREATH, ( Reported) 1 PUFF = 90 MCG Albuterol Sulfate 2.5 Mg/3 Ml Vial.neb, 2.5 MG IH Q4H PRN for WHEEZING, #25 Ref 0 Prescribed by: SUZI THOMAS on 12/22/16 1347 Alendronate Sodium 70 Mg Tablet, 70 MG PO Sa, (Reported) Alprazolam 0.5 Mg Tablet, 0.5 MG PO TID PRN for ANXIETY, (Reported) Apixaban 5 Mg Tablet, 5 MG PO BID, (Reported) Aripiprazole 5 Mg Tablet, 5 MG PO DAILY, (Reported) Aripiprazole 20 Mg Tablet, 20 MG PO DAILY, (Reported) TAKES ALONG WITH 5MG TABLET Azithromycin 250 Mg Tablet, 250 MG PO UD, #6 Ref 0 TAKE 2 TABLETS TODAY, THEN TAKE 1 TABLET DAILY FOR 4 MORE DAYS Prescribed by: SUZI THOMAS on 12/22/161340 Baclofen 10 Mg Tablet, 10 MG PO BID, (Reported) Baclofen 10 Mg Tablet, 10 MG PO BID, (Reported) Benzonatate 100 Mg Capsule, 1-2 CAP PO Q8H PRN for COUGH, #30 Ref 0 Prescribed by: SUZI THOMAS on 12/22/161340 Budesonide/Formoterol Fumarate 10.2 Gm Hfa.aer.ad, 2 PUFF IH BID, (Reported) Cetirizine HCl 10 Mg Tablet, 10 MG PO DAILY, (Reported) Cholecalciferol (Vitamin D3) 5,000 Unit Capsule, 5,000 UNIT PO WEEK, (Reported) Clonazepam 1 Mg Tablet, 1 MG PO HS, (Reported) Colesevelam HCl 625 Mg Tablet, 625 MG PO BID, (Reported) Diltiazem HCl 240 Mg Cap.er.deg, 240 MG PO DAILY, (Reported) Diphenoxylate HCl/Atropine 1 Each Tablet, 2 TAB PO TID, (Reported) Donepezil HCl 10 Mg Tablet, 10 MG PO DAILY, (Reported) Gabapentin 600 Mg Tablet, 600 MG PO TID, (Reported) Hydralazine HCl 25 Mg Tablet, 25 MG PO TID, (Reported) Hydrocodone/Acetaminophen 1 Each Tablet, 1 EACH PO Q6H PRN for PAIN, #14 Ref 0 Prescribed by: SUZI THOMAS on 12/22/161340 Hydroxyzine HCl 25 Mg Tablet, 25 MG PO TID, (Reported) Magnesium Oxide 250 Mg Tablet, 250 MG PO DAILY, (Reported) Memantine HCl 10 Mg Tablet, 10 MG PO HS, (Reported) Metoprolol Succinate 25 Mg Tab.er.24h, 25 MG PO DAILY, (Reported) Mirabegron 50 Mg Tab.er.24h, 50 MG PO DAILY, (Reported) Montelukast Sodium 10 Mg Tablet, 10 MG PO HS, (Reported) Mv,Ca,Min/Iron Fum/FA/Vit K 1 Each Tablet, 1 EACH PO DAILY, (Reported) Nitroglycerin 0.4 Mg Tab.subl, 0.4 MG PO UD PRN for CHEST PAIN, (Reported) Pantoprazole Sodium 40 Mg Tablet.dr, 40 MG PO BID, (Reported) Prednisone 10 Mg Tab, 10 MG PO DAILY, (Reported) Primidone 250 Mg Tablet, 250 MG PO TID, (Reported) Rifaximin 550 Mg Tablet, 550 MG PO TID, (Reported) Ropinirole HCl 2 Mg Tablet, 2 MG PO HS, (Reported) Simvastatin 20 Mg Tablet, 20 MG PO HS, (Reported) Tiotropium [place] 1 Inh Aerp, 1 CAP IH HS, (Reported) Trazodone HCl 150 Mg Tablet, 150 MG PO HS, (Reported) Trospium Chloride 20 Mg Tablet, 20 MG PO TID, (Reported) Vortioxetine Hydrobromide 20 Mg Tablet, 20 MG PO DAILY, (Reported) Zolpidem Tartrate 5 Mg Tablet, 5 MG PO HS, (Reported) Constitutional: see HPI EENTM: see HPI Respiratory: no symptoms reported Cardiovascular: no symptoms reported Genitourinary: no symptoms reported Musculoskeletal: see HPI Skin: no symptoms reported Psychiatric/Neurological: No Symptoms Reported Past Zjxlwnk-Rdcbut-Ctwduk Hx Patient Social History Alcohol Use: Denies Use Recreational Drug Use: No Smoking Status: Current Everyday Smoker Type Used: Cigarettes Former Smoker, Quit: Dec 05, 2016 Recent Foreign Travel: No Contact w/Someone Who Travel: No Recent Infectious Disease Expo: No Recent Hopitalizations: Yes (RECENT HEART CATH) Physical Abuse: No Sexual Abuse: No Immunizations Up To Date Tetanus Booster (TDap): Unknown Date of Pneumonia Vaccine: Nov 11, 2016 Date of Influenza Vaccine: Dec 07, 2015 Seasonal Allergies Seasonal Allergies: Yes Surgeries History of Surgeries: Yes (NECK) Surgeries: Appendectomy, Bladder Surgery, Gallbladder, Orthopedic, Pancreatic Respiratory History of Respiratory Disorde: Yes (OXYGEN AT HS) Respiratory Disorders: Asthma, COPD, Emphysema Cardiovascular History of Cardiac Disorders: Yes Cardiac Disorders: Atrial Fibrillation, High Cholesterol, Hypotension, Irregular Heartbeat, Palpitations Neurological History of Neurological Disord: Yes (PARESTHESIAS OF BILAT LOWER EXT DUE TO FORAMINAL STENOSIS) Neurological Disorders: Headaches /Migraines, Neuropathy 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 System Hx 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 Disorders: No Sexually Transmitted Disease: No HIV/AIDS: No 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 Disorders: Denies Genitourinary Genitourinary Disorders: UTI-Chronic Gastrointestinal History of Gastrointestinal Di: Yes (FREQ DIARRHEA) Gastrointestinal Disorders: Gastroesophageal Reflux, Ulcer Musculoskeletal History of Musculoskeletal Dis: Yes (CHRONIC NECK AND BACK PAIN, CHRONIC HIP PAIN) Musculoskeletal Disorders: Degenerate Disk Disease, Arthritis, Fibromyalgia, Chronic Back Pain Endocrine History of Endocrine Disorders: Yes (DIET CONTROLLED, THYROID NODULES) Endocrine Disorders: Diabetes, Non-Insulin dep HEENT Loss of Vision: Bilateral Hearing Impairment: Denies Cancer History of Cancer: No Psychosocial History of Psychiatric Problem: Yes (ATTEMPTED SUICIDE 26 YRS AGO) Behavioral Health Disorders: Anxiety, Suicide Attempts, Depression Suicide Risk Score: 0 Integumentary History of Skin or Integumenta: Yes Skin/Integumentary Disorders: Psoriasis Blood Transfusions History of Blood Disorders: No Adverse Reaction to a Blood Tr: No Family Medical History Significant Family History: No Pertinent Family Hx Family Medial History: Cardiovascular disease G8 BROTHER (TRIPLE BYPASS) Diabetes mellitus 19 MOTHER FH: COPD (chronic obstructive pulmonary disease) 19 MOTHER FH: breast cancer 19 MOTHER FHx: brain cancer 19 FATHER Physical Exam Vital Signs Vital Sign - Last 12Hours 12/23/16 13:20 Temp 97.4 Pulse 78 Resp 18 B/P (MAP) 133/76 Pulse Ox 95 Capillary Refill : Less Than 3 Seconds General Appearance: No Apparent Distress, WD/WN Eyes: Bilateral Eye Normal Inspection, Bilateral Eye PERRL, Bilateral Eye EOMI HEENT: PERRL/EOMI, TMs Normal Neck: Full Range of Motion, Normal Inspection Respiratory: No Accessory Muscle Use, No Respiratory Distress Cardiovascular: Regular Rate, Rhythm, Normal Peripheral Pulses Gastrointestinal: Normal Bowel Sounds, Non Tender, Soft Extremity: Normal Capillary Refill, Normal Inspection, Other ([place]-sized area of hematoma to the right groin without pulsation.) Neurologic/Psychiatric: Alert, Oriented x3, No Motor/Sensory Deficits Skin: Normal Color, Warm/Dry Progress/Results/Core Measures Results/Orders Lab Results Laboratory Tests Test 12/23/16 14:18 Range/Units White Blood Count 7.9 4.3-11.0 10^3/uL Red Blood Count 4.38 4.35-5.85 10^6/uL Hemoglobin 12.7 11.5-16.0 G/DL Hematocrit 38 35-52 % Mean Corpuscular Volume 88 80-99 FL Mean Corpuscular Hemoglobin 29 25-34 PG Mean Corpuscular Hemoglobin Concent 33 32-36 G/DL Red Cell Distribution Width 15.3 H 10.0-14.5 % Platelet Count 213 130-400 10^3/uL Mean Platelet Volume 10.4 7.4-10.4 FL My Orders Orders - SRAVAN BRUCE APRN Ketorolac Injection (Toradol Injection) (12/23/16 14:15) Cbc No Diff (12/23/16 14:06) Medications Given in ED Current Medications Medications Dose Ordered Sig/[place] Route Start Time Stop Time Status Last Admin Dose Admin Ketorolac Tromethamine 60 mg ONCE ONCE IM 12/23/16 14:15 12/23/16 14:16 DC 12/23/16 14:18 60 MG Vital Signs/I&O Vital Sign - Last 12Hours 12/23/16 13:20 Temp 97.4 Pulse 78 Resp 18 B/P (MAP) 133/76 Pulse Ox 95 Blood Pressure Mean: 95 Departure Impression Impression: Primary Impression: Hematoma of groin Disposition: 01 HOME, SELF-CARE Condition: Stable Departure-Patient Inst. Decision time for Depature: 14:26 Referrals: FAHAD CLEMENT MD (PCP/Family) Primary Care Physician Patient Instructions: NO INSTRUCTIONS GIVEN Add. Discharge Instructions: 1. Follow-up with Dr. Verde 2. This will resolve over the next 2-3 weeks All discharge instructions reviewed with patient and/or family. Voiced understanding. SRAVAN BRUCE APRN Dec 23, 2016 14:14
[2016-12-23] MEDS ORDERED: KETOROLAC 60 MG/2 ML VIAL IM ONE (14:15)
[2016-12-23 14:29] LABS: MEAN PLATELET VOLUME 10.4 FL (7.4-10.4); RED BLOOD COUNT 4.38 10^6/uL (4.35-5.85); RED CELL DISTRIBUTION WIDTH 15.3 % (10.0-14.5); WHITE BLOOD COUNT 7.9 10^3/uL (4.3-11.0)
[2016-12-23 14:37] VITALS: BP 111/74
== END 2016-12-23 14:37 | disposition home or self-care (01) ==
LOC: EDUNIT# 12:49 → ER 12:51
DX: S30.1XXA Contusion of abdominal wall, initial encounter (principal); I48.91 Unspecified atrial fibrillation; E78.00 Pure hypercholesterolemia, unspecified; I10 Essential (primary) hypertension; G43.909 Migraine, unspecified, not intractable, without status migrainosus; K21.9 Gastro-esophageal reflux disease without esophagitis; J43.9 Emphysema, unspecified; M19.90 Unspecified osteoarthritis, unspecified site; E11.40 Type 2 diabetes mellitus with diabetic neuropathy, unspecified; F41.9 Anxiety disorder, unspecified; F32.9 Major depressive disorder, single episode, unspecified; F17.210 Nicotine dependence, cigarettes, uncomplicated; Z87.440 Personal history of urinary (tract) infections; Z87.19 Personal history of other diseases of the digestive system; Z91.5 Personal history of self-harm; Z82.49 Family history of ischemic heart disease and other diseases of the circulatory system; Z80.3 Family history of malignant neoplasm of breast; Z80.8 Family history of malignant neoplasm of other organs or systems; Z90.49 Acquired absence of other specified parts of digestive tract; Z79.01 Long term (current) use of anticoagulants; X58.XXXA Exposure to other specified factors, initial encounter
CPT/HCPCS: 36415; 85027; 99284

== ENCOUNTER 2016-12-26 09:46 | Emergency (ER) | payer MEDICARE, MEDICAID ==
[~2016-12-26] VITALS: Ht 162.6 cm; Wt 70.3 kg
[~2016-12-26 09:46] MED LIST changes: -METO-270 PO; +METO-387 PO; +NAPR-1070 PO; -NAPR550T PO
--- OUTSIDE RECORDS SUMMARY | 2016-12-26 09:53 | XMS REPORT | Continuity of Care Document ---
Author Author [facility] Address Unknown Phone Unavailable Care Team Providers Care Night Assistant Name Role Phone [employer] Unavailable Unavailable Problems Medications Allergies, Adverse Reactions, Alerts Immunizations Results Vital Signs Encounters Location Location Details Encounter Type Encounter Number Reason For Visit Attending Provider ADM Date DC Date Status Source [facility] [id number] Outpatient [id number] . [place] [facility]/12/2013 Active [facility] OUTPATIENT [id number] DENIS FRANCO 09/23/2016 09/23/2016 Active [facility] Jeremy WHEELER Active [facility] Procedures Plan of Care Social History Assessment and Plan Family History Value Date Source Advance Directives Order Name Results Value Date Source
--- OUTSIDE RECORDS SUMMARY | 2016-12-26 09:54 | XMS REPORT | Encounter Summary ---
Author Author [facility] Organization [facility] Address Unknown Phone Unavailable Care Team Providers Care Military Analyst Name Role Phone PCP Unavailable Reason for Visit * Reason Comments Medication Refill Encounter Details Date Type Department Care Team Description 12/20/2016 Refill [facility] Gilles Ness MD Physicians - OBGYN [address] [place] [address] [address]TH FLOOR POD C [phone] [place] [address] [phone] Social History Tobacco Use Types Packs/Day Years [...]
--- OUTSIDE RECORDS SUMMARY | 2016-12-26 09:54 | XMS REPORT | Encounter Summary ---
Author Author [facility] Organization [facility] Address Unknown Phone Unavailable Care Team Providers Care Picker And Sorter Load And Unload Name Role Phone PCP Unavailable Reason for Visit * Reason Comments Medication Refill Encounter Details Date Type Department Care Team Description 11/15/[address] [facility] Gilles Ness MD Physicians - OBGYN [address] [place] [address] [place] [address] 5TH FLOOR POD C [phone] [place] [address] [phone] Social History Tobacco Use Types Packs/Day Years [...]
--- OUTSIDE RECORDS SUMMARY | 2016-12-26 09:54 | XMS REPORT | Encounter Summary ---
Author Author [facility] Organization [facility] Address Unknown Phone Unavailable Care Team Providers Care Software Quality Test Engineer Name Role Phone PCP Unavailable Reason for Visit * Reason Comments General Question Encounter Details Date Type Department Care Team Description 11/11/2016 Telephone [facility] Gilles Ness MD General Question Physicians - OBGYN [address] [place] [address] OFFICE BLDG [phone] [place] [address] Social History Tobacco Use Types [...]
--- OUTSIDE RECORDS SUMMARY | 2016-12-26 09:54 | XMS REPORT | Clinical Summary ---
Author Author [facility] Organization [facility] Address Unknown Phone Unavailable Care Team Providers Care Law Office Receptionist Name Role Phone PCP Unavailable Source Comments Some departments are not documenting in the electronic medical record. If you do not see the information that you expected, contact Release of Information in the Health Information Management department at [phone] for further assistance in locating additional records.[facility] Allergies Active Allergy Reactions Severity Noted Date [...] COPD (chronic obstructive pulmonary disease) ([facility]) 05/18/2012 Diabetes mellitus ([facility]) 05/18/2012 TIA (transient ischemic attack) 05/18/2012 Diarrhea 05/18/2012 Encounters Date Type Specialty Care Team Description 12/20/2016 Refill [facility] Gilles Wilson MD 12/16/2016 Telephone [facility] Rain Tariq MD General Question 12/02/2016 Telephone [facility] Gilles Wilson MD Medication Question 11/15/2016 Refill [facility] Gilles Wilson MD 11/11/2016 Telephone [facility] Gilles Wilson MD General Question 10/03/2016 Telephone [facility] Gilles Wilson MD Medication Question 09/30/2016 Telephone [facility] Gilles Wilson MD General Question 09/27/2016 Telephone [facility] Gilles Wilson MD Results; Referral from Last 3 Months Family History Medical [...] 36.8 C (98.2 F) 06/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
--- OUTSIDE RECORDS SUMMARY | 2016-12-26 09:54 | XMS REPORT | Encounter Summary ---
Author Author [facility] Organization [facility] Address Unknown Phone Unavailable Care Team Providers Care Loading Inspector Name Role Phone PCP Unavailable Reason for Visit * Reason Comments Medication Question Encounter Details Date Type Department Care Team Description 12/02/2016 Telephone [facility] Gilles Ness MD Medication Question Physicians - OBGYN [address] [place] [address] OFFICE BLDG [phone] [place] [address] Social History Tobacco Use Types [...]
--- OUTSIDE RECORDS SUMMARY | 2016-12-26 09:54 | XMS REPORT | Encounter Summary ---
Author Author [facility] Organization [facility] Address Unknown Phone Unavailable Care Team Providers Care Typing Pool Supervisor Name Role Phone PCP Unavailable Reason for Visit * Reason Comments General Question Encounter Details Date Type Department Care Team Description 12/16/2016 Telephone [facility] Rain Tariq MD General Question Physicians - OBGYN [address] [place] [address] OFFICE BLDG [phone] [place] [address] Social History Tobacco Use Types [...]
--- OUTSIDE RECORDS SUMMARY | 2016-12-26 09:55 | XMS REPORT | Encounter Summary ---
Author Author [facility] Organization [facility] Address Unknown Phone Unavailable Care Team Providers Care Half Section Ironer Name Role Phone PCP Unavailable Reason for Visit * Reason Comments General Question Encounter Details Date Type Department Care Team Description 09/30/2016 Telephone [facility] Gilles Ness MD General Question Physicians - OBGYN [address] [place] [address] 5TH FLOOR POD C [phone] [place] [address] [phone] Social History Tobacco Use Types Packs/Day Years [...]
--- OUTSIDE RECORDS SUMMARY | 2016-12-26 09:55 | XMS REPORT | Encounter Summary ---
Author Author [facility] Organization [facility] Address Unknown Phone Unavailable Care Team Providers Care Wood Heel Flap Inserter Name Role Phone PCP Unavailable Reason for Visit * Reason Comments Medication Question Encounter Details Date Type Department Care Team Description 10/03/2016 Telephone [facility] Gilles Ness MD Medication Question Physicians - OBGYN [address] [place] [address] [address]TH FLO[address] POD C [phone] [place] [address] [phone] Social History Tobacco Use Types Packs/Day Years [...]
--- OUTSIDE RECORDS SUMMARY | 2016-12-26 09:55 | XMS REPORT | Encounter Summary ---
Author Author [facility] Organization [facility] Address Unknown Phone Unavailable Care Team Providers Care Principal Network Engineer Name Role Phone PCP Unavailable Reason for Visit * Reason Comments Results Referral Encounter Details Date Type Department Care Team Description 09/27/2016 Telephone [facility] Gilles Ness MD Results; Referral Physicians - OBGYN [address] [place] [address] [address]TH FLO[address] P[address] C [phone] [place] [address] [phone] Social History Tobacco Use Types Packs/Day Years [...]
[2016-12-26] MEDS ORDERED: FLUORESCEIN (FLUOR-I-STRIPS) 1 MG STRP OU ONE (10:45)
[2016-12-26] MEDS ORDERED: BSS 15 ML IR ONE (10:45)
[2016-12-26] MEDS ORDERED: TETRACAINE 0.5% OPHTH SOLN 4 ML BTL (SINGLE DOSE ONLY) OP ONE (10:45)
[2016-12-26 10:46] LABS: BASOPHILS % (AUTO) 0 % (0-10); EOSINOPHILS % (AUTO) 0 % (0-10); LYMPHOCYTES % (AUTO) 6 % (12-44); MEAN CORPUSCULAR HEMOGLOBIN 29 PG (25-34); MEAN CORPUSCULAR HGB CONC 33 G/DL (32-36); MEAN CORPUSCULAR VOLUME 86 FL (80-99); MONOCYTES # (AUTO) 1.2 X 10^3 (0.0-1.0); MONOCYTES % (AUTO) 7 % (0-12); NEUTROPHILS # (AUTO) 14.3 X 10^3 (1.8-7.8); NEUTROPHILS % (AUTO) 87 % (42-75); PLATELET COUNT 272 10^3/uL (130-400); RED CELL DISTRIBUTION WIDTH 15.2 % (10.0-14.5); WHITE BLOOD COUNT 16.5 10^3/uL (4.3-11.0)
[2016-12-26 10:49] LABS: PROTHROMBIN TIME PATIENT 13.5 SEC (12.2-14.7)
[2016-12-26 10:54] LABS: ANION GAP 10 MMOL/L (5-14); BLOOD UREA NITROGEN 8 MG/DL (7-18); BUN/CREATININE RATIO 12; CALCIUM 9.9 MG/DL (8.5-10.1); CARBON DIOXIDE 26 MMOL/L (21-32); CHLORIDE 97 MMOL/L (98-107); CREATININE SERUM 0.67 MG/DL (0.60-1.30); GFR ESTIMATED > 60; GLUCOSE 142 MG/DL (70-105); SODIUM 133 MMOL/L (135-145)
[2016-12-26] MEDS ORDERED: NS 50 ML (IVPB) BAG IV ONE (11:15)
[2016-12-26] MEDS ORDERED: IOHEXOL 350 MG/ML 100 ML (OMNIPAQUE 350) VIAL IV ONE (11:15)
[2016-12-26] MEDS ORDERED: CATHETER FLUSH 10 ML SYR IV PRN (11:15)
--- NOTE | 2016-12-26 11:23 | ED General ---
General Chief Complaint: General Problems/Pain Stated Complaint: BRUISING ON HIP GETTING LARGER/BLURRED VISION Nursing Triage Note: PT IS 9 DAYS POST HEART CATH. SHE REPORTS INSERTION SITE SWELLING AND PAINFUL. SHE WAS SEEN AND TX IN THIS ED FOR SAME S/S ON 12/22/16. SHE IS ALSO C/O SWOLLEN AREA TO L TEMPORAL AREA. Nursing Sepsis Screen: No Definite Risk Source of Information: Patient, Old Records Exam Limitations: No Limitations History of Present Illness Time Seen by Provider: 10:00 Initial Comments This 61-year-old woman presents to the emergency room with multiple complaints. First she complains of pain associated with a hematoma in the right groin associated with a recent angiogram of the right lower extremity. She believes the hematoma is getting bigger. This hematoma has been evaluated twice in the emergency room including evaluation with blood work and ultrasound. There is no pseudoaneurysm and the hematoma seems to be stable according to documentation from prior providers. She also complains of shortness of breath and vision changes in the left eye. Vision changes started upon waking this morning. Last known well time was before bed last night. On her first ER visit she was also diagnosed with bronchitis and should be finishing an azithromycin pack. Patient also complains of temp oral pain on the left with tenderness and headache. Allergies and Home Medications Allergies Coded Allergies: bacitracin (Verified Allergy, Intermediate, "I BREAK OUT IN A RASH ALL OVER.", 08/26/16) neomycin (Verified Allergy, Intermediate, "I BREAK OUT IN A RASH ALL OVER. ", 08/26/16) polymyxin B (Verified Allergy, Intermediate, "I BREAK OUT IN A RASH ALL OVER.", 08/26/16) Penicillins (Verified Allergy, Unknown, NOT SURE KIND REACTION, 08/26/16) ibuprofen (Unverified Allergy, Unknown, 08/26/16) Home Medications Albuterol Sulfate 2.5 Mg/3 Ml Vial.neb, 2.5 MG NEB Q6H PRN for SHORTNESS OF BREATH, (Reported) Albuterol Sulfate 1 Puff Puff, 2 PUFF IH Q4H PRN for SHORTNESS OF BREATH, ( Reported) 1 PUFF = 90 MCG Albuterol Sulfate 2.5 Mg/3 Ml Vial.neb, 2.5 MG IH Q4H PRN for WHEEZING, #25 Ref 0 Prescribed by: SUZI THOMAS on 12/22/16 1347 Alendronate Sodium 70 Mg Tablet, 70 MG PO Sa, (Reported) Alprazolam 0.5 Mg Tablet, 0.5 MG PO TID PRN for ANXIETY, (Reported) Apixaban 5 Mg Tablet, 5 MG PO BID, (Reported) Aripiprazole 5 Mg Tablet, 5 MG PO DAILY, (Reported) Aripiprazole 20 Mg Tablet, 20 MG PO DAILY, (Reported) TAKES ALONG WITH 5MG TABLET Azithromycin 250 Mg Tablet, 250 MG PO UD, #6 Ref 0 TAKE 2 TABLETS TODAY, THEN TAKE 1 TABLET DAILY FOR 4 MORE DAYS Prescribed by: SUZI THOMAS on 12/22/16 1341 Baclofen 10 Mg Tablet, 10 MG PO BID, (Reported) Baclofen 10 Mg Tablet, 10 MG PO BID, (Reported) Benzonatate 100 Mg Capsule, 1-2 CAP PO Q8H PRN for COUGH, #30 Ref 0 Prescribed by: SUZI THOMAS on 12/22/16 1341 Budesonide/Formoterol Fumarate 10.2 Gm Hfa.aer.ad, 2 PUFF IH BID, (Reported) Cetirizine HCl 10 Mg Tablet, 10 MG PO DAILY, (Reported) Cholecalciferol (Vitamin D3) 5,000 Unit Capsule, 5,000 UNIT PO WEEK, (Reported) Clonazepam 1 Mg Tablet, 1 MG PO HS, (Reported) Colesevelam HCl 625 Mg Tablet, 625 MG PO BID, (Reported) Diltiazem HCl 240 Mg Cap.er.deg, 240 MG PO DAILY, (Reported) Diphenoxylate HCl/Atropine 1 Each Tablet, 2 TAB PO TID, (Reported) Donepezil HCl 10 Mg Tablet, 10 MG PO DAILY, (Reported) Doxycycline Hyclate 100 Mg Tablet, 100 MG PO BID, #20 Prescribed by: DAVIDSON RIVERS on 12/26/16 1315 Gabapentin 600 Mg Tablet, 600 MG PO TID, (Reported) Hydralazine HCl 25 Mg Tablet, 25 MG PO TID, (Reported) Hydrocodone/Acetaminophen 1 Each Tablet, 1 EACH PO Q6H PRN for PAIN, #14 Ref 0 Prescribed by: SUZI THOMAS on 12/22/16 1341 Hydroxyzine HCl 25 Mg Tablet, 25 MG PO TID, (Reported) Magnesium Oxide 250 Mg Tablet, 250 MG PO DAILY, (Reported) Memantine HCl 10 Mg Tablet, 10 MG PO HS, (Reported) Metoprolol Succinate 25 Mg Tab.er.24h, 25 MG PO DAILY, (Reported) Mirabegron 50 Mg Tab.er.24h, 50 MG PO DAILY, (Reported) Montelukast Sodium 10 Mg Tablet, 10 MG PO HS, (Reported) Mv,Ca,Min/Iron Fum/FA/Vit K 1 Each Tablet, 1 EACH PO DAILY, (Reported) Nitroglycerin 0.4 Mg Tab.subl, 0.4 MG PO UD PRN for CHEST PAIN, (Reported) Pantoprazole Sodium 40 Mg Tablet.dr, 40 MG PO BID, (Reported) Prednisone 10 Mg Tab, 10 MG PO DAILY, (Reported) Primidone 250 Mg Tablet, 250 MG PO TID, (Reported) Rifaximin 550 Mg Tablet, 550 MG PO TID, (Reported) Ropinirole HCl 2 Mg Tablet, 2 MG PO HS, (Reported) Simvastatin 20 Mg Tablet, 20 MG PO HS, (Reported) Tiotropium [place] 1 Inh Aerp, 1 CAP IH HS, (Reported) Trazodone HCl 150 Mg Tablet, 150 MG PO HS, (Reported) Trospium Chloride 20 Mg Tablet, 20 MG PO TID, (Reported) Vortioxetine Hydrobromide 20 Mg Tablet, 20 MG PO DAILY, (Reported) Zolpidem Tartrate 5 Mg Tablet, 5 MG PO HS, (Reported) Constitutional: no symptoms reported Past Iujpyir-Cjakef-Bblxwk Hx Patient Social History Alcohol Use: Denies Use Recreational Drug Use: No Smoking Status: Current Everyday Smoker Type Used: Cigarettes Former Smoker, Quit: Dec 05, 2016 2nd Hand Smoke Exposure: Yes Recent Foreign Travel: No Contact w/Someone Who Travel: No Recent Infectious Disease Expo: No Recent Hopitalizations: Yes (RECENT HEART CATH) Physical Abuse: No Sexual Abuse: No Immunizations Up To Date Tetanus Booster (TDap): Unknown Date of Pneumonia Vaccine: Nov 11, 2016 Date of Influenza Vaccine: Dec 07, 2015 Seasonal Allergies Seasonal Allergies: Yes Surgeries History of Surgeries: Yes (NECK) Surgeries: Appendectomy, Bladder Surgery, Gallbladder, Orthopedic, Pancreatic Respiratory History of Respiratory Disorde: Yes (OXYGEN AT HS) Respiratory Disorders: Asthma, COPD, Emphysema Cardiovascular History of Cardiac Disorders: Yes Cardiac Disorders: Atrial Fibrillation, High Cholesterol, Hypotension, Irregular Heartbeat, Palpitations Neurological History of Neurological Disord: Yes (PARESTHESIAS OF BILAT LOWER EXT DUE TO FORAMINAL STENOSIS) Neurological Disorders: Headaches /Migraines, Neuropathy 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 System Hx 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 Disorders: No Sexually Transmitted Disease: No HIV/AIDS: No 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 Disorders: Denies Genitourinary Genitourinary Disorders: UTI-Chronic Gastrointestinal History of Gastrointestinal Di: Yes (FREQ DIARRHEA) Gastrointestinal Disorders: Gastroesophageal Reflux, Ulcer Musculoskeletal History of Musculoskeletal Dis: Yes (CHRONIC NECK AND BACK PAIN, CHRONIC HIP PAIN) Musculoskeletal Disorders: Degenerate Disk Disease, Arthritis, Fibromyalgia, Chronic Back Pain Endocrine History of Endocrine Disorders: Yes (DIET CONTROLLED, THYROID NODULES) Endocrine Disorders: Diabetes, Non-Insulin dep HEENT Loss of Vision: Bilateral Hearing Impairment: Denies Cancer History of Cancer: No Psychosocial History of Psychiatric Problem: Yes (ATTEMPTED SUICIDE 26 YRS AGO) Behavioral Health Disorders: Anxiety, Suicide Attempts, Depression Suicide Risk Score: 0 Integumentary History of Skin or Integumenta: Yes Skin/Integumentary Disorders: Psoriasis Blood Transfusions History of Blood Disorders: No Adverse Reaction to a Blood Tr: No Family Medical History Significant Family History: No Pertinent Family Hx Family Medial History: Cardiovascular disease G8 BROTHER (TRIPLE BYPASS) Diabetes mellitus 19 MOTHER FH: COPD (chronic obstructive pulmonary disease) 19 MOTHER FH: breast cancer 19 MOTHER FHx: brain cancer 19 FATHER Physical Exam Vital Signs Vital Sign - Last 12Hours 12/26/16 09:56 Temp 97.6 Pulse 88 Resp 20 B/P (MAP) 128/78 Pulse Ox 98 O2 Delivery Room Air Capillary Refill : Less Than 3 Seconds General Appearance: No Apparent Distress, WD/WN HEENT: PERRL/EOMI, TMs Normal, Other (oropharynx somewhat dry. Tenderness over the left temporal region. Pupils are fairly constricted even in a dark room limiting funduscopic exam) Neck: Normal Inspection Respiratory: No Accessory Muscle Use, No Respiratory Distress, Crackles ( subtle in the left base) Cardiovascular: Regular Rate, Rhythm, No Edema, No Murmur Gastrointestinal: Normal Bowel Sounds, Non Tender, Soft Extremity: Normal Inspection, No Pedal Edema Neurologic/Psychiatric: Alert, Oriented x3, No Motor/Sensory Deficits, Normal Mood/Affect, Other (there appears to be a visual field limitation in the superior peripheral vision of the left eye) Skin: Normal Color, Warm/Dry Eye : Location: left eye Anesthesia (gtts): Tetracaine Progress/Procedure Conclusion Left eye was anesthetized with one drop of tetracaine. Fluorescein exam revealed no abnormalities. Pressure with the Benny-Pen was measured at 19 with a 95 percent confidence. Patient also reports she has been feeling very thirsty and also short of breath over the past couple of days. Chest x-ray, troponin and BNP were added to her workup. Patient was found to have a leukocytosis. She is on chronic steroid therapy. CRP was unremarkable at one. Progress/Results/Core Measures Results/Orders Lab Results Laboratory Tests Test 12/26/16 09:30 12/26/16 10:30 Range/Units B-Type Natriuretic Peptide 275.3 H <100.0 PG/ML White Blood Count 16.5 H 4.3-11.0 10^3/uL Red Blood Count 4.50 4.35-5.85 10^6/uL Hemoglobin 12.9 11.5-16.0 G/DL Hematocrit 39 35-52 % Mean Corpuscular Volume 86 80-99 FL Mean Corpuscular Hemoglobin 29 25-34 PG Mean Corpuscular Hemoglobin Concent 33 32-36 G/DL Red Cell Distribution Width 15.2 H 10.0-14.5 % Platelet Count 272 130-400 10^3/uL Mean Platelet Volume 10.0 7.4-10.4 FL Neutrophils (%) (Auto) 87 H 42-75 % Lymphocytes (%) (Auto) 6 L 12-44 % Monocytes (%) (Auto) 7 0-12 % Eosinophils (%) (Auto) 0 0-10 % Basophils (%) (Auto) 0 0-10 % Neutrophils # (Auto) 14.3 H 1.8-7.8 X 10^3 Lymphocytes # (Auto) 1.0 1.0-4.0 X 10^3 Monocytes # (Auto) 1.2 H 0.0-1.0 X 10^3 Eosinophils # (Auto) 0.0 0.0-0.3 10^3/uL Basophils # (Auto) 0.0 0.0-0.1 10^3/uL Neutrophils % (Manual) 86 % Lymphocytes % (Manual) 5 % Monocytes % (Manual) 9 % Blood Morphology Comment NORMAL Erythrocyte Sedimentation Rate 13 0-30 MM/HR Prothrombin Time 13.5 12.2-14.7 SEC INR Comment 1.0 0.8-1.4 Activated Partial Thromboplast Time 28 24-35 SEC Sodium Level 133 L 135-145 MMOL/L Potassium Level 4.0 3.6-5.0 MMOL/L Chloride Level 97 L 98-107 MMOL/L Carbon Dioxide Level 26 21-32 MMOL/L Anion Gap 10 5-14 MMOL/L Blood Urea Nitrogen 8 7-18 MG/DL Creatinine 0.67 0.60-1.30 MG/DL Estimat Glomerular Filtration Rate > 60 BUN/Creatinine Ratio 12 Glucose Level 142 H 70-105 MG/DL Calcium Level 9.9 8.5-10.1 MG/DL Troponin I < 0.30 <0.30 NG/ML C-Reactive Protein High Sensitivity 1.00 H 0.00-0.50 MG/DL My Orders Orders - DAVIDSON CORTEZ MD Basic Metabolic Panel (12/26/16 10:12) Cbc With Automated Diff (12/26/16 10:12) Erythrocyte Sedimentation Rate (12/26/16 10:12) Hs C Reactive Protein (12/26/16 10:14) Saline Lock/Iv-Start (12/26/16 10:29) Monitor-Rhythm Ecg Trace Only (12/26/16 10:29) Protime With Inr (12/26/16 10:29) Partial Thromboplastin Time (12/26/16 10:29) Ekg Tracing (12/26/16 10:31) Fluorescein Strips (Zvncs-U-Pilzsl) (12/26/16 10:45) Balanced Salt Irrigation Soln (Bss Irrig (12/26/16 10:45) Tetracaine 0.5% Ophth Thu Sdv (Tetracai (12/26/16 10:45) Manual Differential (12/26/16 10:30) Ct Angio Head/Neck (12/26/16 11:02) Iohexol Injection (Omnipaque 350 Mg/Ml 1 (12/26/16 11:15) Sodium Chloride Flush (Catheter Flush Sy (12/26/16 11:15) Ns (Ivpb) (Sodium Chloride 0.9% Ivpb Bag (12/26/16 11:15) Chest Pa/Lat (2 View) (12/26/16 11:16) BNP (12/26/16 11:16) Troponin I (12/26/16 11:23) Doxycycline Hyclate Tablet (Vibramycin T (12/26/16 13:15) Fentanyl Injection (Sublimaze Injection (12/26/16 13:15) Medications Given in ED Current Medications Medications Dose Ordered Sig/[place] Route Start Time Stop Time Status Last Admin Dose Admin Balanced Salt Solution 15 ml ONCE ONCE IR 12/26/16 10:45 12/26/16 10:46 DC 12/26/16 11:00 15 ML Doxycycline Hyclate 100 mg ONCE ONCE PO 12/26/16 13:15 12/26/16 13:16 DC 12/26/16 13:24 100 MG Fentanyl Citrate 50 mcg ONCE ONCE IVP 12/26/16 13:15 12/26/16 13:16 DC 12/26/16 13:24 50 MCG Fluorescein Sodium 1 mg ONCE ONCE OU 12/26/16 10:45 12/26/16 10:46 DC 12/26/16 11:00 1 MG Iohexol 80 ml ONCE ONCE IV 12/26/16 11:15 12/26/16 11:31 DC 12/26/16 11:30 80 ML Sodium Chloride 50 ml ONCE ONCE IV 12/26/16 11:15 12/26/16 11:31 DC 12/26/16 11:30 80 ML Tetracaine HCl 1 OR 2 DROPS INTO AFFEC... ONCE ONCE OP 12/26/16 10:45 12/26/16 10:46 DC 12/26/16 11:00 0.5 ML Vital Signs/I&O Vital Sign - Last 12Hours 12/26/16 09:56 Temp 97.6 Pulse 88 Resp 20 B/P (MAP) 128/78 Pulse Ox 98 O2 Delivery Room Air Blood Pressure Mean: 95 Progress Note #1: Time: 11:05 Progress Note Patient elaborated on her vision changes and states that she feels like there is a field deficit or section of vision missing from the left lateral field of vision from the left eye. Her visual acuity test was 20/30 in the right eye and 20/50 in the left eye with her glasses. Combined acuity was 20/40. Patient reports compliance with her Eliquis which she takes for atrial fibrillation. I symptoms were noted upon waking this morning. Last known well time was when she went to bed last night. Because of the nature of her vision complaints, there is concern for thrombus, CVA, or retinal detachment. Further workup is being pursued with a CT angiogram of the head and neck. A fluorescein eye exam and measurement of her sugars with Benny-Pen will be obtained. Progress Note #2: Time: 11:20 Progress Note Floor seen exam showed no abnormalities on the eye surface. Patient stated that the pain behind her eye improved with tetracaine. Patient will go for CT angiogram. Pressure of the left eye was 19 by Benny-Pen with 95 percent confidence. Progress Note #3: Time: 13:[address] angiogram showed no acute abnormalities. Chest x-ray showed no definite pneumonia. As a precaution, doxycycline is being prescribed has leukocytosis may represent infection somewhere. Doxycycline should cover for both skin and pulmonary infection. Pain is being treated with fentanyl. First dose of doxycycline was given prior to discharge. Dr. Downing was contacted by phone and we will see the patient promptly upon discharge from the ER. ECG Initial ECG Impression Date: Dec 26, 2016 Initial ECG Impression Time: 10:34 Initial ECG Rate: 77 Initial ECG Rhythm: Normal Sinus Initial ECG Intervals: Normal Comment Sinus rhythm with no ST elevation or depression. Multiple PVCs. No abnormal intervals or definite axis deviation. Diagnostic Imaging Diagonstic Imaging: CT Plain Films/CT/US/NM/MRI: other (CT angiogram of the head and neck) Comments CT angiogram of the head and neck viewed by me and report reviewed. See report below: NAME: MINGO JOSÉ [facility] REC#: [id number] PT STATUS: REG ER : 1955 PHYSICIAN: DAVIDSON CORTEZ MD ADMIT DATE: 12/26/16/ER Draft Date of Exam:12/26/16 CT ANGIO HEAD/NECK PROCEDURE: CT angiography of the head and CT angiography of the neck with and without contrast. TECHNIQUE: Contiguous noncontrast images were obtained from the skull base through the vertex. After intravenous contrast administration, helical CT angiography of the neck was performed. Source data was reformatted into multiple MIP projections. Delayed post contrast acquisition was also obtained. INDICATION: Headache. Left eye and temporal pain. History of atrial fibrillation. FINDINGS: Unenhanced CT head demonstrates no intracranial hemorrhage, edema, or mass effect. There is no hydrocephalus. No extra-axial fluid collection is seen. The CT angiogram of the head demonstrates mild atherosclerotic calcified plaque in the internal carotid artery cavernous segment on both sides with no significant underlying stenosis. The MCA and the NERY on both sides are patent. The vertebral arteries are patent. The basilar artery is patent. The posterior cerebral arteries are patent. No high-grade stenosis, occlusion, or aneurysm. No enhancing lesion is seen in the brain. CTA neck: The brachiocephalic artery, the right subclavian artery, and the right common carotid artery are patent. Mild plaque at the carotid bifurcation is seen with no significant underlying stenosis. Mild plaque is also seen in the proximal aspect of the right internal carotid artery with no significant stenosis. The right external carotid artery is patent. The left internal carotid artery and left external carotid artery are also patent. The left subclavian artery is patent. The vertebral arteries are patent. The thyroid gland, the parotid, and the submandibular glands appear unremarkable. No significantly enlarged lymph nodes are seen in the neck. The lungs demonstrate emphysema changes. The osseous structures demonstrate anterior and fusion changes in the cervical spine with laminectomy performed at multiple levels. IMPRESSION: CTA head: No intracranial hemorrhage. No significant vascular arterial occlusion, aneurysm, or high-grade stenosis. CTA neck: 1. No significant carotid artery stenosis. 2. Emphysema. Dictated on workstation # [id number] Dict: 12/26/16 1205 Trans: 12/26/16 1228 [id number] Interpreted by: ZANE SHIN MD Diagonstic Imaging: Xray Plain Films/CT/US/NM/MRI: chest Comments Chest x-ray viewed by me and report reviewed. See report below: NAME: MINGO JOSÉ [facility] REC#: [id number] PT STATUS: REG ER : 1955 PHYSICIAN: DAVIDSON CORTEZ MD ADMIT DATE: 12/26/16/ER Draft Date of Exam:12/26/16 CHEST PA/LAT (2 VIEW) PA and lateral views of the chest. INDICATION: Trouble breathing and cough. COMPARISON: 11/26/16. FINDINGS: The lungs demonstrate minimally prominent interstitial markings similar to previous studies. The heart size is normal. No effusion or pneumothorax. The mediastinum and zeinab appear unremarkable. There is cervical spine fusion hardware seen. IMPRESSION: Slightly prominent interstitial markings likely chronic. No focal infiltrates. Dictated on workstation # [id number] Dict: 12/26/16 1202 Trans: 12/26/16 1208 DELMY [id number] Interpreted by: ZANE SHIN MD Departure Impression Impression: Primary Impression: Postoperative hematoma involving circulatory system following cardiac catheterization Additional Impressions: Change in vision Headache Qualified Codes: R51 - Headache Leukocytosis Qualified Codes: D72.829 - Elevated white blood cell count, unspecified Disposition: 01 HOME, SELF-CARE Condition: Improved Departure-Patient Inst. Decision time for Depature: 13:00 Referrals: FAHAD CLEMENT MD (PCP/Family) Primary Care Physician Patient Instructions: HEMATOMA Add. Discharge Instructions: Go directly to Dr. Downing's office for examination of your eyes. Make an appointment with your primary care provider and follow-up as soon as possible. Complete your antibiotics as prescribed. Return to emergency room if you have worsening symptoms. Please contact your wastewater design engineer's office also to evaluate the hematoma of your right leg. You may drink water but do not eat until you discuss the eye exam findings with Dr. Downing. All discharge instructions reviewed with patient and/or family. Voiced understanding. Scripts Doxycycline Hyclate (Doxycycline Hyclate) 100 Mg Tablet 100 MG PO BID, #20 TAB Prov: DAVIDSON CORTEZ MD 12/26/16 Copy Copies To 1: FAHAD CLEMENT MD, JOSHUA T MD Dec 26, 2016 11:23
[2016-12-26 11:31] LABS: LYMPHOCYTES % (MANUAL) 5 %; NEUTROPHILS % (MANUAL) 86 %
[2016-12-26 11:36] LABS: ERYTHROCYTE SEDIMENTATION RATE 13 MM/HR (0-30)
--- NOTE | 2016-12-26 12:08 | Diagnostic Imaging Report ---
PA and lateral views of the chest. INDICATION: Trouble breathing and cough. COMPARISON: 11/26/16. FINDINGS: The lungs demonstrate minimally prominent interstitial markings similar to previous studies. The heart size is normal. No effusion or pneumothorax. The mediastinum and zeinab appear unremarkable. There is cervical spine fusion hardware seen. IMPRESSION: Slightly prominent interstitial markings likely chronic. No focal infiltrates. Dictated by: Dictated on workstation # [id number]
--- NOTE | 2016-12-26 12:28 | Diagnostic Imaging Report ---
PROCEDURE: CT angiography of the head and CT angiography of the neck with and without contrast. TECHNIQUE: Contiguous noncontrast images were obtained from the skull base through the vertex. After intravenous contrast administration, helical CT angiography of the neck was performed. Source data was reformatted into multiple MIP projections. Delayed post contrast acquisition was also obtained. INDICATION: Headache. Left eye and temporal pain. History of atrial fibrillation. FINDINGS: Unenhanced CT head demonstrates no intracranial hemorrhage, edema, or mass effect. There is no hydrocephalus. No extra-axial fluid collection is seen. The CT angiogram of the head demonstrates mild atherosclerotic calcified plaque in the internal carotid artery cavernous segment on both sides with no significant underlying stenosis. The MCA and the NERY on both sides are patent. The vertebral arteries are patent. The basilar artery is patent. The posterior cerebral arteries are patent. No high-grade stenosis, occlusion, or aneurysm. No enhancing lesion is seen in the brain. CTA neck: The brachiocephalic artery, the right subclavian artery, and the right common carotid artery are patent. Mild plaque at the carotid bifurcation is seen with no significant underlying stenosis. Mild plaque is also seen in the proximal aspect of the right internal carotid artery with no significant stenosis. The right external carotid artery is patent. The left internal carotid artery and left external carotid artery are also patent. The left subclavian artery is patent. The vertebral arteries are patent. The thyroid gland, the parotid, and the submandibular glands appear unremarkable. No significantly enlarged lymph nodes are seen in the neck. The lungs demonstrate emphysema changes. The osseous structures demonstrate anterior and fusion changes in the cervical spine with laminectomy performed at multiple levels. IMPRESSION: CTA head: No intracranial hemorrhage. No significant vascular arterial occlusion, aneurysm, or high-grade stenosis. CTA neck: 1. No significant carotid artery stenosis. 2. Emphysema. Dictated by: Dictated on workstation # [id number]
[2016-12-26] MEDS ORDERED: DOXY100T2 PO (13:15)
[2016-12-26] MEDS ORDERED: DOXYCYCLINE 100 MG (VIBRAMYCIN) TABLET PO ONE (13:15)
[2016-12-26] MEDS ORDERED: fentaNYL INJECTION 100 MCG/2 ML AMP IVP ONE (13:15)
[2016-12-26 13:25] VITALS: BP 128/78
[2017-02-09] MEDS ORDERED: NYST1000 PO (18:01)
== END 2016-12-26 13:25 | disposition home or self-care (01) ==
LOC: EDUNIT# 09:46 → ER 09:48
DX: I97.610 Postprocedural hemorrhage of a circulatory system organ or structure following a cardiac catheterization (principal); H53.9 Unspecified visual disturbance; R51 Headache; D72.829 Elevated white blood cell count, unspecified; J43.9 Emphysema, unspecified; I48.91 Unspecified atrial fibrillation; E78.00 Pure hypercholesterolemia, unspecified; I10 Essential (primary) hypertension; M19.90 Unspecified osteoarthritis, unspecified site; E11.40 Type 2 diabetes mellitus with diabetic neuropathy, unspecified; F41.9 Anxiety disorder, unspecified; F32.9 Major depressive disorder, single episode, unspecified; G43.909 Migraine, unspecified, not intractable, without status migrainosus; Z87.891 Personal history of nicotine dependence; Z87.440 Personal history of urinary (tract) infections; Z91.5 Personal history of self-harm; Z82.49 Family history of ischemic heart disease and other diseases of the circulatory system; Z80.3 Family history of malignant neoplasm of breast; Z90.49 Acquired absence of other specified parts of digestive tract; Z87.19 Personal history of other diseases of the digestive system; Z79.01 Long term (current) use of anticoagulants
CPT/HCPCS: 36415; 70496; 70498; 71020; 80048; 83880; 84484; 85007; 85027; 85610; 85652; 85730; 86141; 93005; 93041; 96374

== ENCOUNTER 2016-12-27 09:52 | Outpatient (RCR) | payer MEDICARE, MEDICAID ==
[2016-11-01] MEDS: OMALIZUMAB SUB-Q 150 MG (XOLAIR) VIAL SQ SCH (10:27)
[2016-11-01 10:33] VITALS: BP 109/75
[2016-11-29] MEDS: OMALIZUMAB SUB-Q 150 MG (XOLAIR) VIAL SQ SCH (10:45)
[2016-11-29 13:39] VITALS: BP 124/72
[~2016-12-27] VITALS: Ht 162.6 cm; Wt 67.6 kg
[~2016-12-27 09:52] MED LIST changes: +DOXY100T2 PO; +METO-270 PO; -METO-387 PO; -NAPR-1070 PO; +NAPR550T PO; +RT-ALBUTEROL SULF 2.5 MG/3 ML PRE-MIX VIAL ONE
[2016-12-27] MEDS: OMALIZUMAB SUB-Q 150 MG (XOLAIR) VIAL SQ SCH (10:39)
[2016-12-27 10:41] VITALS: BP 139/82
== END 2017-01-04 | disposition home or self-care (01) ==
LOC: SDC 09:52
PROVIDERS: ATTEND Internal Medicine Pulmonary Disease
DX: J45.50 Severe persistent asthma, uncomplicated (principal)
CPT/HCPCS: 96372

== ENCOUNTER 2016-12-31 10:06 | Outpatient (RCR) | payer MEDICARE, MEDICAID ==
[~2016-12-31 10:06] MED LIST changes: -RT-ALBUTEROL SULF 2.5 MG/3 ML PRE-MIX VIAL ONE
== END 2017-01-04 | disposition home or self-care (01) ==
LOC: PULM 10:06
PROVIDERS: ATTEND Nurse Practitioner Family
DX: J45.909 Unspecified asthma, uncomplicated (principal); J44.9 Chronic obstructive pulmonary disease, unspecified; R06.02 Shortness of breath; F17.201 Nicotine dependence, unspecified, in remission; G47.34 Idiopathic sleep related nonobstructive alveolar hypoventilation; I48.92 Unspecified atrial flutter; R09.02 Hypoxemia

== ENCOUNTER → 2017-01-01 | Outpatient (CLI) | payer MEDICARE, MEDICAID ==
[~2017-01-01] MED LIST changes: +BACL20TA PO; +CHOL500049 PO; +COLE3.75 PO; -METO-270 PO; +METO-387 PO; +NAPR-1070 PO; -NAPR550T PO; +NYST1000 PO; +ONDA4TAB8 PO; +PRED5TAB PO
--- NOTE | 2017-01-02 17:39 | Diagnostic Imaging Report ---
EXAMINATION: Bilateral digital screening mammogram with CAD. The current study was also evaluated with a Computer Aided Detection (CAD) system. INDICATION: Screening. No current complaints stated on the questionnaire. COMPARISON: 01/04/2016. FINDINGS: The breasts are composed of heterogeneously dense parenchyma which may decrease mammographic sensitivity. There is no mass, architectural distortion or suspicious calcification identified. A biopsy clip in the upper outer aspect of the right breast is seen. Allowing for technique and positional differences, no suspicious change is seen. IMPRESSION: No significant change. ACR BI-RADS Category 2: Benign findings. Result letter will be mailed to the patient. Note: At least 10% of breast cancer is not imaged by mammography. Dictated by: Dictated on workstation # [id number]
== END ==
LOC: RAD 09:03
PROVIDERS: ATTEND Nurse Practitioner Family
DX: Z12.31 Encounter for screening mammogram for malignant neoplasm of breast (principal)
CPT/HCPCS: 77067

== ENCOUNTER → 2017-01-03 | Outpatient (CLI) | payer MEDICARE, MEDICAID ==
[~2017-01-03] MED LIST changes: -BACL20TA PO; -CHOL500049 PO; -COLE3.75 PO; +METO-270 PO; -METO-387 PO; -NAPR-1070 PO; +NAPR550T PO; -NYST1000 PO; -ONDA4TAB8 PO; -PRED5TAB PO
--- NOTE | 2017-01-03 18:13 | Diagnostic Imaging Report ---
INDICATION: Right groin pain. Post heart catheter three weeks ago. FINDINGS: There is a subcutaneous hypodense fluid collection measuring 2.3 x 0.6 x 1.5 cm anterior to the common femoral artery and vein. There is no evidence of pseudoaneurysm. There are no AV fistulas. IMPRESSION: Subcutaneous small fluid collection remains present. There has been continued improvement when compared with previous exam of 12/22/2016. Dictated by: Dictated on workstation # [id number]
== END ==
LOC: RAD 11:57
PROVIDERS: ATTEND Internal Medicine Cardiovascular Disease
DX: R19.09 Other intra-abdominal and pelvic swelling, mass and lump (principal); I10 Essential (primary) hypertension; E78.4 Other hyperlipidemia; I48.0 Paroxysmal atrial fibrillation; R06.02 Shortness of breath; Z72.0 Tobacco use; J43.8 Other emphysema; I73.89 Other specified peripheral vascular diseases
CPT/HCPCS: 93926

== ENCOUNTER 2017-01-08 18:26 | Emergency (ER) | payer MEDICARE, MEDICAID ==
[~2017-01-08] VITALS: Ht 162.6 cm; Wt 67.6 kg
--- OUTSIDE RECORDS SUMMARY | 2017-01-08 18:35 | XMS REPORT | Clinical Summary ---
Author Author [facility] Organization [facility] Address Unknown Phone Unavailable Care Team Providers Care Traffic Administrator Name Role Phone PCP Unavailable Source Comments Some departments are not documenting in the electronic medical record. If you do not see the information that you expected, contact Release of Information in the Health Information Management department at [phone] for further assistance in locating additional records.[facility] Allergies Active Allergy Reactions Severity Noted [...] Heartburn 01/19/2015 COPD (chronic obstructive pulmonary disease) ([facility]) 05/18/2012 Diabetes mellitus ([facility]) 05/18/2012 TIA (transient ischemic attack) 05/18/2012 Diarrhea 05/18/2012 Encounters Date Type Specialty Care Team Description 12/20/2016 Refill [facility]ro Gilles Wilson MD 12/16/2016 Telephone Uro Rain Chan MD General Question 12/02/2016 Telephone Uro Gilles Wilson MD Medication Question 11/15/2016 Refill Uro Gilles Wilson MD 11/11/2016 Telephone Uro Gilles Wilson MD General Question from Last 3 Months Family History Medical [...] 36.8 C (98.2 F) 06/13/2015 1:02 PM CHLORINE CELL TENDER Respiratory Rate 20 10/25/2015 10:12 AM CDT [...]
--- OUTSIDE RECORDS SUMMARY | 2017-01-08 18:35 | XMS REPORT | Encounter Summary ---
Author Author [facility] Organization [facility] Address Unknown Phone Unavailable Care Team Providers Care Statistical Assistant Name Role Phone PCP Unavailable Reason for Visit * Reason Comments Medication Refill Encounter Details Date Type Department Care Team Description 12/20/2016 Refill [facility] Gilles Ness MD Physicians - OBGYN [address] [place] [address] [place] [address] 5TH FLO[address] POD C [phone] [place] [address] [phone] Social History Tobacco Use Types Packs/Day Years [...]
--- OUTSIDE RECORDS SUMMARY | 2017-01-08 18:35 | XMS REPORT | Encounter Summary ---
Author Author [facility] Organization [facility] Address Unknown Phone Unavailable Care Team Providers Care Preparator Name Role Phone PCP Unavailable Reason for Visit * Reason Comments Medication Refill Encounter Details Date Type Department Care Team Description 11/15/2016 Refill [facility] Gilles Ness MD Physicians - OBGYN [address] [place] [address] [place] [address] [address] FLO[address] POD C [phone] [place] [address] [phone] Social History Tobacco Use Types Packs/Day Years [...]
--- OUTSIDE RECORDS SUMMARY | 2017-01-08 18:35 | XMS REPORT | Encounter Summary ---
Author Author [facility] Organization [facility] Address Unknown Phone Unavailable Care Team Providers Care Ssn/Ssbn Assistant Navigator Name Role Phone PCP Unavailable Reason for Visit * Reason Comments General Question Encounter Details Date Type Department Care Team Description 12/16/2016 Telephone [facility] Rain Tariq MD General Question Physicians - OBGYN [address] [place] [address] OFFICE BLDG [phone] [place] [address] Social History Tobacco Use Types Packs/Day Years Used Date Former Smoker Cigarettes 40 Quit: 05/29/2015 Smokeless Tobacco: Never Used Alcohol Use Drinks/Week oz/Week Comments No 0 Standard 0.0 drinks or equivalent Sex Assigned at Date Recorded Not on file as of this encounter Miscellaneous Notes * Telephone Encounter - Joleen Doe LPN - 12/16/2016 9:18 AM CDT Pt called and said she was still having trouble with her incontinence and would like to know if we can increase her meds or try something else. I informed her that Dr Ness said we could increase her trospium From 20 mg BID to 20 mg TID. I explained she should try to space it to every 8 hours. She was very appreciative of this. in this encounter Plan of Treatment Not on fileas of this encounter Visit Diagnoses Not on filein this encounter
--- OUTSIDE RECORDS SUMMARY | 2017-01-08 18:35 | XMS REPORT | Encounter Summary ---
Author Author [facility] Organization [facility] Address Unknown Phone Unavailable Care Team Providers Care Coating Machine Operator Helper Name Role Phone PCP Unavailable Reason for Visit * Reason Comments Medication Question Encounter Details Date Type Department Care Team Description 12/02/2016 Telephone [facility] Gilles Ness MD Medication Question Physicians - OBGYN [address]TH FLO[address] [email or web address] [address] OFFICE BLDG [phone] [place] [address] Social History Tobacco Use Types Packs/Day Years Used Date Former Smoker Cigarettes 40 Quit: 05/29/2015 Smokeless Tobacco: Never Used Alcohol Use Drinks/Week oz/Week Comments No 0 Standard 0.0 drinks or equivalent Sex Assigned at Date Recorded Not on file as of this encounter Miscellaneous Notes * Telephone Encounter - Shruti Grimes LPN - 12/02/2016 3:50 PM CDT Received a message that pt called in regards to medication. Returned call and LM for pt to call back to further discuss concern. in this encounter Plan of Treatment Not on fileas of this encounter Visit Diagnoses Not on filein this encounter
--- OUTSIDE RECORDS SUMMARY | 2017-01-08 18:35 | XMS REPORT | Encounter Summary ---
Author Author [facility] Organization [facility] Address Unknown Phone Unavailable Care Team Providers Care Bowling Alley Manager Name Role Phone PCP Unavailable Reason for Visit * Reason Comments General Question Encounter Details Date Type Department Care Team Description 11/11/2016 Telephone [facility] Gilles Ness MD General Question Physicians - OBGYN [address] [place] [address] OFFICE BLDG [phone] [place] [address] Social History Tobacco Use Types [...]
--- OUTSIDE RECORDS SUMMARY | 2017-01-08 18:35 | XMS REPORT | Continuity of Care Document ---
Author Author [facility] Address Unknown Phone Unavailable Care Team Providers Care Fibre Optic Cable Splicer Name Role Phone [employer] Unavailable Unavailable Problems Medications Allergies, Adverse Reactions, Alerts Immunizations Results Vital Signs Encounters Location Location Details Encounter Type Encounter Number Reason For Visit Attending Provider ADM Date DC Date Status [place] [facility] [id number] [id number] [facility] [place]2013 Active [facility] OUTPATIENT [id number] DENIS FRANCO 09/23/2016 09/23/[address] [facility] Jeremy WHEELER 04/10/[address] [facility] Procedures Plan of Care Social History Assessment and Plan Family History Value Date Source Advance Directives Order Name Results Value Date Source
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
--- OUTSIDE RECORDS SUMMARY | 2017-01-08 18:45 | XMS REPORT ---
Author Author FAHAD CLEMENT [facility] Address [address] [place] [address] Care Team Providers Care Dual Rate Dealer Name Role Phone FAHAD CLEMENT Unavailable PROBLEMS Type Condition ICD9-CM Code [id number] Code Onset Dates Condition Status SNOMED Code Problem Bilateral low back pain without sciatica M54.5 Active 078613960 Problem Osteopenia M85.80 Active 225704780 Problem Postmenopausal Z78.0 Active 46754816 Problem Xeroderma Q80.9 Active 85765186 Problem COPD (chronic obstructive pulmonary disease) J44.9 Active 29111140 Problem Dementia without behavioral disturbance, unspecified dementia type F03.90 Active 22112988 Problem Osteoporosis M81.0 Active 17961108 Problem Hyperlipidemia E78.5 Active 50150776 Problem Cigarette nicotine dependence without complication F17.210 Active 12475886 Problem Screening breast examination Z12.39 Active 020901718 Problem Arthritis M19.90 Active 1575916 Problem Vascular dementia without behavioral disturbance F01.50 Active 98301070294127495 Problem History of common bile duct surgery Z98.89 Active 492188405 Problem Major depressive disorder, recurrent episode, moderate F33.1 Active 416548319 Problem Coronary artery disease involving [place] coronary artery of [place] 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 I25.118 Active 2781017295972 Problem Barretts esophagus K22.70 Active 798485268 Problem Chronic pain syndrome G89.4 Active 433388740 Problem Generalized anxiety disorder F41.1 Active 391722058 Problem Essential tremor G25.0 Active 23841138 Problem Cervicalgia M54.2 Active 3650369516560 Problem Colon polyp K63.5 Active 75300201 Problem Gastroparesis K31.84 Active 181296793 Problem Paroxysmal atrial fibrillation I48.0 Active 735391462 Problem 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 Active 32355200 ALLERGIES Substance Reaction Event Type Date Status Penicillin V Potassium rash Drug Allergy May, Active Neosporin rash Drug Allergy May, Active Ibuprofen rash Drug Allergy May, Active Glipizide hives, nausea Drug Allergy May, Active SOCIAL HISTORY Never Assessed PLAN OF CARE Activity Details Follow Up prn Reason: VITAL SIGNS Height 64 in 2016-05-30 Weight 154.8 lbs 2016-05-30 Temperature 98.4 degrees Fahrenheit 2016-05-30 Heart Rate 70 bpm 2016-05-30 Respiratory Rate 22 2016-05-30 BMI 26.57 kg/m2 2016-05-30 Blood pressure systolic 118 mmHg 2016-05-30 Blood pressure diastolic 80 mmHg 2016-05-30 MEDICATIONS Medication Instructions Dosage Frequency Start Date End Date Duration Status Simvastatin 20mg Orally Once a day 1 tablet in the evening 24h Active Hydrocodone-Acetaminophen 7.5-325 MG Orally every 6 hrs 1 tablet as needed 6h Active Ambien 5 MG Orally Once a day 1 tablet at bedtime 24h Jul, 30 days Active Fluticasone Propionate 50 MCG/ACT Nasally 2 times a day 2 sprays in each nostril 12h Active Trazodone HCl 150 MG Orally Once a day 1 tablet at bedtime as needed 24h Dec, 30 days Active Nitroglycerin 0.4 MG Active Primidone 250mg Orally Three times a day 1 tablet 8h Active Xanax 0.5 MG Orally Three times a day 1 tablet 8h Mar, Active Albuterol Sulfate 2.5 mg /3 mL (0.083 %) 1 Each by Inhalation route every 4 hours for cough and wheeze PRN for wheezing or cough Jun, Active Oxygen 5 inhalation all the time Active Eliquis 5 MG Orally 2 times a day 12h Active Lomotil 2.5-0.025 MG TAKE 2 TABLETS FOUR TIMES DAILY (MUST LAST 30 DAY SUPPLY EACH FILL) 30 Active Trazodone HCl 150 TAKE ONE TABLET BY MOUTH AT BEDTIME NEEDED 30 Active Trintellix 20 MG Orally Once a day 1 tablet 24h Dec, 30 days Active Ropinirole HCl 2 MG TAKE 1 TABLET ONE TIME DAILY AT BEDTIME 90 Active Topamax 25 MG Orally Twice a day 1 AM, 2 hs 12h Active Xolair 150 mg inject 1.2 milliliters (150 mg) by subcutaneous route every 4 weeks Sep, Active Omeprazole 40 MG Orally Once a day 1 capsule 24h Active Tiotropium [place] Monohydrate 18 MCG Inhalation Once a day 1 capsule 24h Active HydrOXYzine HCl 25 MG TAKE 1 TABLET THREE TIMES DAILY 90 Active Singulair 10 MG Orally Once a day take 1 tablet (10 mg) by oral route once daily in the evening 24h Oct, Active Aricept 10 MG TAKE 1 TABLET ONE TIME DAILY 90 Active Donepezil Hydrochloride Active Gabapentin 600 MG TAKE 1 TABLET THREE TIMES DAILY (CHANGE IN DIRECTIONS) 90 Active Lomotil 2.5-0.025 TAKE TWO TABLETS BY MOUTH FOUR TIMES A DAY. MUST LAST 30 DAYS 30 Active Nicotine Step 1 21 MG/24HR Transdermal Once a day 1 patch to skin 24h Apr, Jun, 30 day(s) Active Abilify 15 MG Orally Once a day 1 tablet 24h Jun, 30 days Active Toprol XL 100 MG Orally Once a day 1 tablet 24h Active Namenda 10 MG TAKE 1 TABLET ONE TIME DAILY 90 Active Alendronate Sodium 70 MG TAKE 1 TABLET EVERY WEEK 84 Active Symbicort 160-4.5 MCG/ACT INHALE 2 PUFFS TWICE DAILY, IN THE MORNING AND IN THE EVENING 90 Active Ventolin HFA 108 (90 Base) MCG/ACT INHALE 2 PUFFS EVERY 4 HOURS NEEDED 16 Active Cyclobenzaprine HCl 10 Orally Once a day 2 tablet 24h 30 Active RESULTS No Results PROCEDURES Procedure Date Ordered Result [facility] 2016 [facility] VISIT ESTABLISHED PATIENT May 30, 2016 VENIPUNCT, ROUTINE* May 30, 2016 IMMUNIZATIONS No Known Immunizations MEDICAL (GENERAL) HISTORY [...]
--- OUTSIDE RECORDS SUMMARY | 2017-01-08 19:27 | XMS REPORT ---
Author Author FAHAD CLEMENT [facility] Address [address] [place] [address] Care Team Providers Care Automobile Assembly Supervisor Name Role Phone FAHAD CLEMENT Unavailable PROBLEMS Type Condition ICD9-CM Code [id number] Code Onset Dates Condition Status SNOMED Code Problem Bilateral low back pain without sciatica M54.5 Active 949401333 Problem Osteopenia M85.80 Active 007450454 Problem Postmenopausal Z78.0 Active 79399497 Problem Xeroderma Q80.9 Active 10981976 Problem COPD (chronic obstructive pulmonary disease) J44.9 Active 01362455 Problem Dementia without behavioral disturbance, unspecified dementia type F03.90 Active 76214014 Problem Osteoporosis M81.0 Active 33675810 Problem Hyperlipidemia E78.5 Active 44259303 Problem Cigarette nicotine dependence without complication F17.210 Active 90710662 Problem Screening breast examination Z12.39 Active 966562601 Problem Arthritis M19.90 Active 2523224 Problem Vascular dementia without behavioral disturbance F01.50 Active 60623753 Problem History of common bile duct surgery Z98.89 Active 306790441 Problem Major depressive disorder, recurrent episode, moderate F33.1 Active 594162569 Problem Coronary artery disease involving [place] coronary artery of [place] 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 I25.118 Active 0569145557076 Problem Barretts esophagus K22.70 Active 286143594 Problem Chronic pain syndrome G89.4 Active 869194459 Problem Generalized anxiety disorder F41.1 Active 383841399 Problem Essential tremor G25.0 Active 17326202 Problem Cervicalgia M54.2 Active 2450340076136 Problem Colon polyp K63.5 Active 45808593 Problem Gastroparesis K31.84 Active 578550085 Problem Paroxysmal atrial fibrillation I48.0 Active 711699420 Problem 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 Basliio) 01/2013 Surgical History cervical fusion 01/2009 Surgical [...]
--- OUTSIDE RECORDS SUMMARY | 2017-01-08 19:29 | XMS REPORT ---
Author Author FAHAD CLEMENT [facility] Address [address] [place] [address] Care Team Providers Care Motor Vehicle License Clerk Name Role Phone FAHAD CLEMENT Unavailable PROBLEMS Type Condition ICD9-CM Code [id number] Code Onset Dates Condition Status SNOMED Code Problem Bilateral low back pain without sciatica M54.5 Active 368239095 Problem Osteopenia M85.80 Active 383793799 Problem Postmenopausal Z78.0 Active 28238236 Problem Xeroderma Q80.9 Active 97377906 Problem COPD (chronic obstructive pulmonary disease) J44.9 Active 05651564 Problem Dementia without behavioral disturbance, unspecified dementia type F03.90 Active 84157261 Problem Osteoporosis M81.0 Active 89194219 Problem Hyperlipidemia E78.5 Active 34422626 Problem Cigarette nicotine dependence without complication F17.210 Active 33619453 Problem Screening breast examination Z12.39 Active 897531416 Problem Arthritis M19.90 Active 3941558 Problem Vascular dementia without behavioral disturbance F01.50 Active 06914935311267084 Problem History of common bile duct surgery Z98.89 Active 537779014 Problem Major depressive disorder, recurrent episode, moderate F33.1 Active 619702146 Problem Coronary artery disease involving [place] coronary artery of [place] 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 I25.118 Active 9422740821774 Problem Barretts esophagus K22.70 Active 591021334 Problem Chronic pain syndrome G89.4 Active 050521293 Problem Generalized anxiety disorder F41.1 Active 891881142 Problem Essential tremor G25.0 Active 09815511 Problem Cervicalgia M54.2 Active 5507682001815 Problem Colon polyp K63.5 Active 79017924 Problem Gastroparesis K31.84 Active 742935839 Problem Paroxysmal atrial fibrillation I48.0 Active 576826213 Problem 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
--- OUTSIDE RECORDS SUMMARY | 2017-01-08 19:35 | XMS REPORT ---
Author Author FAHAD CLEMENT [facility] Address [address] [place] [address] Care Team Providers Care Environmental Adviser Name Role Phone FAHAD CLEMENT Unavailable PROBLEMS Type Condition ICD9-CM Code XXD54-OV Code Onset Dates Condition Status SNOMED Code Problem Bilateral low back pain without sciatica M54.5 Active 657662160 Problem Osteopenia M85.80 Active 178493053 Problem Postmenopausal Z78.0 Active 47074595 Problem Xeroderma Q80.9 Active 33905684 Problem COPD (chronic obstructive pulmonary disease) J44.9 Active 18622898 Problem Dementia without behavioral disturbance, unspecified dementia type F03.90 Active 45117665 Problem Osteoporosis M81.0 Active 32775589 Problem Hyperlipidemia E78.5 Active 41098906 Problem Cigarette nicotine dependence without complication F17.210 Active 08700969 Problem Screening breast examination Z12.39 Active 178402049 Problem Arthritis M19.90 Active 6690266 Problem Vascular dementia without behavioral disturbance F01.50 Active 35136581580207034 Problem History of common bile duct surgery Z98.89 Active 327644691 Problem Major depressive disorder, recurrent episode, moderate F33.1 Active 654910036 Problem Coronary artery disease involving [place] coronary artery of [place] 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 I25.118 Active 0569528445243 Problem Barretts esophagus K22.70 Active 276684354 Problem Chronic pain syndrome G89.4 Active 155361225 Problem Generalized anxiety disorder F41.1 Active 504423473 Problem Essential tremor G25.0 Active 97150260 Problem Cervicalgia M54.2 Active 3147443798133 Problem Colon polyp K63.5 Active 38974846 Problem Gastroparesis K31.84 Active 311986656 Problem Paroxysmal atrial fibrillation I48.0 Active 210812598 Problem 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
[2017-01-08] MEDS ORDERED: PROCHLORPERAZINE 10 MG/2ML INJ (COMPAZINE) IV ONE (20:00)
[2017-01-08] MEDS ORDERED: ONDANSETRON 4 MG (ZOFRAN) ORAL DISSOLVE TAB PO ONE (20:00)
--- NOTE | 2017-01-08 20:01 | ED Headache ---
General Chief Complaint: Head/Cervical Problems Stated Complaint: HEADACHE,LT ARM/ABDOMEN/LEG CRAMPING Nursing Triage Note: PT REPORTS MIGRAINE SINCE YESTERDAY. Nursing Sepsis Screen: No Definite Risk Source: patient Exam Limitations: no limitations History of Present Illness Time seen by provider: 19:39 Initial Comments Pt presents by private conveyance for Migraine past 24h without aura. Phono/ photophobia. Tried sumatriptan x 2 after seeing PCP in the clinic. No improvement. HAs a Hx of Migraines usu 2 bad ones a year. On Trazodone and many other meds. Last triptan was 6 hours ago. Nausea without vomiting. Leg and arm cramping severe that accompanies migraines. Here home meds are not helping. Baseline SOB without cough. Quit smoking 2 months ago. No dysuria, CP, Abd pain. Allergies and Home Medications Allergies Coded Allergies: bacitracin (Verified Allergy, Intermediate, "I BREAK OUT IN A RASH ALL OVER.", 08/26/16) neomycin (Verified Allergy, Intermediate, "I BREAK OUT IN A RASH ALL OVER. ", 08/26/16) polymyxin B (Verified Allergy, Intermediate, "I BREAK OUT IN A RASH ALL OVER.", 08/26/16) Penicillins (Verified Allergy, Unknown, NOT SURE KIND REACTION, 08/26/16) ibuprofen (Unverified Allergy, Unknown, 08/26/16) Home Medications Albuterol Sulfate 2.5 Mg/3 Ml Vial.neb, 2.5 MG NEB Q6H PRN for SHORTNESS OF BREATH, (Reported) Albuterol Sulfate 1 Puff Puff, 2 PUFF IH Q4H PRN for SHORTNESS OF BREATH, ( Reported) 1 PUFF = 90 MCG Albuterol Sulfate 2.5 Mg/3 Ml Vial.neb, 2.5 MG IH Q4H PRN for WHEEZING, #25 Ref 0 Prescribed by: SUZI THOMAS on 12/22/16 1347 Alendronate Sodium 70 Mg Tablet, 70 MG PO Sa, (Reported) Alprazolam 0.5 Mg Tablet, 0.5 MG PO TID PRN for ANXIETY, (Reported) Apixaban 5 Mg Tablet, 5 MG PO BID, (Reported) Aripiprazole 5 Mg Tablet, 5 MG PO DAILY, (Reported) Aripiprazole 20 Mg Tablet, 20 MG PO DAILY, (Reported) TAKES ALONG WITH 5MG TABLET Azithromycin 250 Mg Tablet, 250 MG PO UD, #6 Ref 0 TAKE 2 TABLETS TODAY, THEN TAKE 1 TABLET DAILY FOR 4 MORE DAYS Prescribed by: SUZI THOMAS on 12/22/16 1341 Baclofen 10 Mg Tablet, 10 MG PO BID, (Reported) Baclofen 10 Mg Tablet, 10 MG PO BID, (Reported) Benzonatate 100 Mg Capsule, 1-2 CAP PO Q8H PRN for COUGH, #30 Ref 0 Prescribed by: SUZI THOMAS on 12/22/16 1341 Budesonide/Formoterol Fumarate 10.2 Gm Hfa.aer.ad, 2 PUFF IH BID, (Reported) Cetirizine HCl 10 Mg Tablet, 10 MG PO DAILY, (Reported) Cholecalciferol (Vitamin D3) 5,000 Unit Capsule, 5,000 UNIT PO WEEK, (Reported) Clonazepam 1 Mg Tablet, 1 MG PO HS, (Reported) Colesevelam HCl 625 Mg Tablet, 625 MG PO BID, (Reported) Diltiazem HCl 240 Mg Cap.er.deg, 240 MG PO DAILY, (Reported) Diphenoxylate HCl/Atropine 1 Each Tablet, 2 TAB PO TID, (Reported) Donepezil HCl 10 Mg Tablet, 10 MG PO DAILY, (Reported) Doxycycline Hyclate 100 Mg Tablet, 100 MG PO BID, #20 Prescribed by: DAVIDSON RIVERS on 12/26/16 1315 Gabapentin 600 Mg Tablet, 600 MG PO TID, (Reported) Hydralazine HCl 25 Mg Tablet, 25 MG PO TID, (Reported) Hydrocodone/Acetaminophen 1 Each Tablet, 1 EACH PO Q6H PRN for PAIN, #14 Ref 0 Prescribed by: SUZI THOMAS on 12/22/16 1341 Hydroxyzine HCl 25 Mg Tablet, 25 MG PO TID, (Reported) Magnesium Oxide 250 Mg Tablet, 250 MG PO DAILY, (Reported) Memantine HCl 10 Mg Tablet, 10 MG PO HS, (Reported) Metoprolol Succinate 25 Mg Tab.er.24h, 25 MG PO DAILY, (Reported) Mirabegron 50 Mg Tab.er.24h, 50 MG PO DAILY, (Reported) Montelukast Sodium 10 Mg Tablet, 10 MG PO HS, (Reported) Mv,Ca,Min/Iron Fum/FA/Vit K 1 Each Tablet, 1 EACH PO DAILY, (Reported) Nitroglycerin 0.4 Mg Tab.subl, 0.4 MG PO UD PRN for CHEST PAIN, (Reported) Pantoprazole Sodium 40 Mg Tablet.dr, 40 MG PO BID, (Reported) Prednisone 10 Mg Tab, 10 MG PO DAILY, (Reported) Primidone 250 Mg Tablet, 250 MG PO TID, (Reported) Rifaximin 550 Mg Tablet, 550 MG PO TID, (Reported) Ropinirole HCl 2 Mg Tablet, 2 MG PO HS, (Reported) Simvastatin 20 Mg Tablet, 20 MG PO HS, (Reported) Tiotropium [place] 1 Inh Aerp, 1 CAP IH HS, (Reported) Trazodone HCl 150 Mg Tablet, 150 MG PO HS, (Reported) Trospium Chloride 20 Mg Tablet, 20 MG PO TID, (Reported) Vortioxetine Hydrobromide 20 Mg Tablet, 20 MG PO DAILY, (Reported) Zolpidem Tartrate 5 Mg Tablet, 5 MG PO HS, (Reported) Constitutional: No chills, No diaphoresis, No fever, No malaise Eyes: Denies Blindness, Denies Blurred Vision, Denies Pain Ears, Nose, Mouth, Throat: denies ear pain, denies ear discharge Respiratory: No cough, short of breath (chronic) Cardiovascular: No chest pain, No palpitations Gastrointestinal: No abdominal pain, No constipation, No diarrhea, nausea, No vomiting Genitourinary: No discharge, No dysuria : No Musculoskeletal: No back pain, No joint pain, No joint swelling, other ( cramping left side) Skin: No pruritus, No rash Psychiatric/Neurological: Headache, Denies Numbness, Denies Paresthesia Past [id number] Hx Patient Social History Alcohol Use: Denies Use Recreational Drug Use: No Smoking Status: Current Everyday Smoker Type Used: Cigarettes Former Smoker, Quit: Dec 05, 2016 2nd Hand Smoke Exposure: Yes Recent Foreign Travel: No Contact w/Someone Who Travel: No Recent Infectious Disease Expo: No Recent Hopitalizations: Yes (RECENT HEART CATH) Physical Abuse: No Sexual Abuse: No Immunizations Up To Date Tetanus Booster (TDap): Unknown Date of Pneumonia Vaccine: Nov 11, 2016 Date of Influenza Vaccine: Dec 07, 2015 Seasonal Allergies Seasonal Allergies: Yes Surgeries History of Surgeries: Yes (NECK) Surgeries: Appendectomy, Bladder Surgery, Gallbladder, Orthopedic, Pancreatic Respiratory History of Respiratory Disorde: Yes (OXYGEN AT HS) Respiratory Disorders: Asthma, COPD, Emphysema Cardiovascular History of Cardiac Disorders: Yes Cardiac Disorders: Atrial Fibrillation, High Cholesterol, Hypotension, Irregular Heartbeat, Palpitations Neurological History of Neurological Disord: Yes (PARESTHESIAS OF BILAT LOWER EXT DUE TO FORAMINAL STENOSIS) Neurological Disorders: Headaches /Migraines, Neuropathy 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 System Hx 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 Disorders: No Sexually Transmitted Disease: No HIV/AIDS: No 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 Disorders: Denies Genitourinary Genitourinary Disorders: UTI-Chronic Gastrointestinal History of Gastrointestinal Di: Yes (FREQ DIARRHEA) Gastrointestinal Disorders: Gastroesophageal Reflux, Ulcer Musculoskeletal History of Musculoskeletal Dis: Yes (CHRONIC NECK AND BACK PAIN, CHRONIC HIP PAIN) Musculoskeletal Disorders: Degenerate Disk Disease, Arthritis, Fibromyalgia, Chronic Back Pain Endocrine History of Endocrine Disorders: Yes (DIET CONTROLLED, THYROID NODULES) Endocrine Disorders: Diabetes, Non-Insulin dep HEENT Loss of Vision: Bilateral Hearing Impairment: Denies Cancer History of Cancer: No Psychosocial History of Psychiatric Problem: Yes (ATTEMPTED SUICIDE 26 YRS AGO) Behavioral Health Disorders: Anxiety, Suicide Attempts, Depression Suicide Risk Score: 0 Integumentary History of Skin or Integumenta: Yes Skin/Integumentary Disorders: Psoriasis Blood Transfusions History of Blood Disorders: No Adverse Reaction to a Blood Tr: No Family Medical History Significant Family History: No Pertinent Family Hx Family Medial History: Cardiovascular disease G8 BROTHER (TRIPLE BYPASS) Diabetes mellitus 19 MOTHER FH: COPD (chronic obstructive pulmonary disease) 19 MOTHER FH: breast cancer 19 MOTHER FHx: brain cancer 19 FATHER Physical Exam Vital Signs Vital Sign - Last 12Hours 01/08/17 18:50 Temp 97.3 Pulse 67 Resp 20 B/P (MAP) 145/84 Pulse Ox 97 O2 Delivery Room Air Capillary Refill : Less Than 3 Seconds General Appearance: WD/WN, mild distress HEENT: PERRL/EOMI, TMs normal, pharynx normal Neck: non-tender, supple, normal inspection Cardiovascular: normal peripheral pulses, regular rate, rhythm, no edema Respiratory: chest non-tender, lungs clear, normal breath sounds Gastrointestinal: normal bowel sounds, non tender, soft Extremities: normal range of motion, normal inspection, normal capillary refill , other (tenderness to bilateral knees. Apparently this is chronic) Psychiatric: alert, oriented x 3 Crainal Nerves: normal hearing, normal speech, PERRL Coordination/Gait: normal gait Motor/Sensory: no motor deficit, no sensory deficit Skin: normal color, warm/dry Progress/Results/Core Measures Results/Orders Lab Results Laboratory Tests Test 01/08/17 20:25 Range/Units Urine Color YELLOW Urine Clarity CLEAR Urine pH 6 5-9 Urine Specific [place] 1.015 L 1.016-1.022 Urine Protein NEGATIVE NEGATIVE Urine Glucose (UA) NEGATIVE NEGATIVE Urine Ketones NEGATIVE NEGATIVE Urine Nitrite NEGATIVE NEGATIVE Urine Bilirubin NEGATIVE NEGATIVE Urine Urobilinogen NORMAL NORMAL MG/DL Urine Leukocyte Esterase NEGATIVE NEGATIVE Urine RBC (Auto) 3+ H NEGATIVE Urine RBC 2-5 H /HPF Urine WBC 0-2 /HPF Urine Squamous Epithelial Cells 10-25 H /HPF Urine Crystals NONE /LPF Urine Bacteria TRACE /HPF Urine Casts NONE /LPF Urine Mucus NEGATIVE /LPF Urine Culture Indicated NO My Orders Orders - FABIO MERRITT Ua Culture If Indicated (01/08/17 19:48) Prochlorperazine Injection (Compazine In (01/08/17 20:00) Ondansetron Oral Dissolve Tab (Zofran (01/08/17 20:00) Prochlorperazine Injection (Compazine In (01/08/17 20:45) Metoclopramide Injection (Reglan Injecti (01/08/17 21:00) Diphenhydramine Tablet (Benadryl Tablet) (01/08/17 21:00) Ketorolac Injection (Toradol Injection) (01/08/17 21:15) Metoclopramide Tablet (Reglan Tablet) (01/08/17 21:30) Medications Given in ED Current Medications Medications Dose Ordered Sig/[place] Route Start Time Stop Time Status Last Admin Dose Admin Diphenhydramine HCl 25 mg ONCE ONCE PO 01/08/17 21:00 01/08/17 21:01 DC 01/08/17 21:48 25 MG Ketorolac Tromethamine 15 mg ONCE ONCE IM 01/08/17 21:15 01/08/17 21:16 DC 01/08/17 21:47 15 MG Metoclopramide HCl 10 mg ONCE ONCE PO 01/08/17 21:30 01/08/17 21:31 DC 01/08/17 21:47 10 MG Ondansetron HCl 4 mg ONCE ONCE PO 01/08/17 20:00 01/08/17 20:01 DC 01/08/17 20:30 4 MG Prochlorperazine Edisylate 10 mg ONCE ONCE IM 01/08/17 20:45 01/08/17 20:46 DC 01/08/17 20:30 10 MG Vital Signs/I&O Vital Sign - Last 12Hours 01/08/17 18:50 Temp 97.3 Pulse 67 Resp 20 B/P (MAP) 145/84 Pulse Ox 97 O2 Delivery Room Air Blood Pressure Mean: 104 Progress Note : Time: 20:11 Progress Note Compazine, Zofran, she is recently received sumatriptan 2 doses so we'll not give her any more triptans. We'll check a UA. Departure Impression Impression: Primary Impression: Migraine Qualified Codes: G43.019 - Migraine without aura, intractable, without status migrainosus Disposition: HOME, SELF-CARE Condition: Stable Departure-Patient Inst. Decision time for Depature: 21:53 Referrals: FAHAD CLEMENT MD (PCP/Family) Primary Care Physician Patient Instructions: Migraine Headache (DC) Add. Discharge Instructions: Drink plenty of water and if he started having nausea take Zofran every [address] under your tongue allowed to absorb your mouth. Follow up with your primary care physician and discuss the use of other triptan's. He wake up in the morning and he still having a migraine headache you can take another sumatriptan. All discharge instructions reviewed with patient and/or family. Voiced understanding. Scripts Ondansetron (Zofran Odt) 4 Mg Tab.rapdis 4 MG PO Q6H Y for NAUSEA/VOMITING-1ST LINE, #14 TAB 0 Refills Prov: FABIO MERRITT 01/08/17 Copy Copies To 1: SUMAN MTZ DO FABIO MERRITT Jan 08, 2017 20:01
[2017-01-08 20:33] LABS: BILIRUBIN,URINE NEGATIVE (NEGATIVE); KETONES,URINE NEGATIVE (NEGATIVE); LEUKOCYTE ESTERASE ,URINE NEGATIVE (NEGATIVE); NITRITE,URINE NEGATIVE (NEGATIVE); PH,URINE 6 (5-9); PROTEIN,URINE NEGATIVE (NEGATIVE); UROBILINOGEN,URINE NORMAL (NORMAL)
[2017-01-08 20:42] LABS: WBC,URINE 0-2 /HPF
[2017-01-08] MEDS ORDERED: PROCHLORPERAZINE 10 MG/2ML INJ (COMPAZINE) IM ONE (20:45)
[2017-01-08] MEDS ORDERED: diphenhydrAMINE 25 MG TAB (BENADRYL) PO ONE (21:00)
[2017-01-08] MEDS ORDERED: METOCLOPRAMIDE INJ 10 MG/2 ML (REGLAN) IVP ONE (21:00)
[2017-01-08] MEDS ORDERED: KETOROLAC 30 MG/ML VIAL IM ONE (21:15)
[2017-01-08] MEDS ORDERED: METOCLOPRAMIDE 10 MG (REGLAN) TAB PO ONE (21:30)
[2017-01-08] MEDS ORDERED: RX-ONDANSETRON 4 MG ODT (ZOFRAN) PPK #4 PO STA (21:50)
[2017-01-08] MEDS ORDERED: ONDA4TAB8 PO (21:54)
[2017-01-08 22:10] VITALS: BP 145/84
== END 2017-01-08 22:10 | disposition home or self-care (01) ==
LOC: EDUNIT# 18:26 → ER 18:28
DX: G43.909 Migraine, unspecified, not intractable, without status migrainosus (principal); J43.9 Emphysema, unspecified; I48.91 Unspecified atrial fibrillation; E78.00 Pure hypercholesterolemia, unspecified; K21.9 Gastro-esophageal reflux disease without esophagitis; M19.90 Unspecified osteoarthritis, unspecified site; E11.40 Type 2 diabetes mellitus with diabetic neuropathy, unspecified; F41.9 Anxiety disorder, unspecified; F32.9 Major depressive disorder, single episode, unspecified; F17.210 Nicotine dependence, cigarettes, uncomplicated; Z79.01 Long term (current) use of anticoagulants; Z82.49 Family history of ischemic heart disease and other diseases of the circulatory system; Z80.3 Family history of malignant neoplasm of breast; Z80.8 Family history of malignant neoplasm of other organs or systems; Z90.49 Acquired absence of other specified parts of digestive tract; Z91.5 Personal history of self-harm; Z87.440 Personal history of urinary (tract) infections; Z87.19 Personal history of other diseases of the digestive system
CPT/HCPCS: 81000; 96372; 99284

== ENCOUNTER 2017-01-14 15:09 | Emergency (ER) | payer MEDICARE, MEDICAID ==
[~2017-01-14] VITALS: Ht 162.6 cm; Wt 69.9 kg
[~2017-01-14 15:09] MED LIST changes: +ONDA4TAB8 PO
--- OUTSIDE RECORDS SUMMARY | 2017-01-14 15:16 | XMS REPORT | Continuity of Care Document ---
Author Author [employer] [facility] Address Unknown Phone Unavailable Care Team Providers Care Development Manager Name Role Phone [employer] Unavailable Unavailable Problems Medications Allergies, Adverse Reactions, Alerts Immunizations Results Vital Signs Encounters Location Location Details Encounter Type Encounter Number Reason For Visit Attending Provider ADM Date DC Date Status Source [facility] [id number] Outpatient [id number] . LAB [facility] [place] 01/12/2013 Active [facility] OUTPATIENT [id number] DENIS FRANCO 09/23/2016 09/23/2016 Active [facility] Jeremy WHEELER 04/10/2017 Active [facility] Procedures Plan of Care Social History Assessment and Plan Family History Value Date Source Advance Directives Order Name Results Value Date Source
--- OUTSIDE RECORDS SUMMARY | 2017-01-14 15:17 | XMS REPORT | Encounter Summary ---
Author Author [facility] Organization [facility] Address Unknown Phone Unavailable Care Team Providers Care Time Cycle Operator Name Role Phone PCP Unavailable Reason for Visit * Reason Comments Medication Refill Encounter Details Date Type Department Care Team Description 12/20/2016 Refill [facility] Gilles Ness MD Physicians - OBGYN [address] [place] [address] [place] [address] 5TH FLOOR POD C [phone] [place] [address] [phone] Social History Tobacco Use Types Packs/Day Years [...]
--- OUTSIDE RECORDS SUMMARY | 2017-01-14 15:17 | XMS REPORT | Encounter Summary ---
Author Author [facility] Organization [facility] Address Unknown Phone Unavailable Care Team Providers Care Cabinet And Trim Installer Name Role Phone PCP Unavailable Reason for Visit * Reason Comments General Question Encounter Details Date Type Department Care Team Description 12/16/2016 Telephone [facility] Rain Tariq MD General Question Physicians - OBGYN [address] [place] [address] OFFICE BLDG [phone] [place] [address] Social History Tobacco Use Types [...]
--- OUTSIDE RECORDS SUMMARY | 2017-01-14 15:17 | XMS REPORT | Encounter Summary ---
Author Author [facility] Organization [facility] Address Unknown Phone Unavailable Care Team Providers Care Business Office Technician Name Role Phone PCP Unavailable Reason for Visit * Reason Comments General Question Encounter Details Date Type Department Care Team Description 11/11/2016 Telephone [facility] Gilles Ness MD General Question Physicians - OBGYN [address] [place] [address] OFFICE BLDG [phone] [place] [address] Social History Tobacco Use Types [...]
--- OUTSIDE RECORDS SUMMARY | 2017-01-14 15:17 | XMS REPORT | Encounter Summary ---
Author Author [facility] Organization [facility] Address Unknown Phone Unavailable Care Team Providers Care Collar Trimmer Name Role Phone PCP Unavailable Reason for Visit * Reason Comments Medication Refill Encounter Details Date Type Department Care Team Description 11/15/2016 Refill [facility] Gilles Ness MD Physicians - OBGYN [address] [place] [address] 5TH FLOOR POD C [phone] [place] [address] [phone] Social History Tobacco Use Types Packs/Day Years [...]
--- OUTSIDE RECORDS SUMMARY | 2017-01-14 15:17 | XMS REPORT | Clinical Summary ---
Author Author [facility] Organization [facility] Address Unknown Phone Unavailable Care Team Providers Care Purchase Price Analyst Name Role Phone PCP Unavailable Source Comments Some departments are not documenting in the electronic medical record. 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
--- OUTSIDE RECORDS SUMMARY | 2017-01-14 15:17 | XMS REPORT | Encounter Summary ---
Author Author [facility] Organization [facility] Address Unknown Phone Unavailable Care Team Providers Care State Game Warden Name Role Phone PCP Unavailable Reason for Visit * Reason Comments Medication Question Encounter Details Date Type Department Care Team Description 12/02/2016 Telephone [facility] Gilles Ness MD Medication Question Physicians - OBGYN [address] FLO[address] [place] [address] OFFICE BLDG [phone] [place] [address] Social History Tobacco Use Types [...]
--- OUTSIDE RECORDS SUMMARY | 2017-01-14 15:23 | XMS REPORT ---
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 Active 10729414 Problem Hyperlipidemia E78.5 Active 33553502 Problem Postmenopausal Z78.0 Active 93316316 Problem Osteoporosis M81.0 Active 32728662 Problem Osteopenia M85.80 Active 578461981 Problem Cigarette nicotine dependence without complication F17.210 Active 41353865 Problem Screening breast examination Z12.39 Active 749308452 Problem Migraine without aura and with status migrainosus, not intractable G43.001 Active 381259792 Problem Migraine without aura and without status migrainosus, not intractable G43.009 Active 214605115 Problem Barretts esophagus K22.70 Active 347637044 Problem Coronary artery disease involving [place] coronary artery of [place] 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 I25.118 Active 7356690978932 Problem COPD (chronic obstructive pulmonary disease) J44.9 Active 07198424 Problem Arthritis M19.90 Active 5666133 Problem Vascular dementia without behavioral disturbance F01.50 Active 26441005660723026 Problem Xeroderma Q80.9 Active 67877226 Problem Dementia without behavioral disturbance, unspecified dementia type F03.90 Active 34683972 Problem Cervicalgia M54.2 Active 4577355312158 Problem Paroxysmal atrial fibrillation I48.0 Active 902456314 Problem History of common bile duct surgery Z98.89 Active 989402670 Problem Major depressive disorder, recurrent episode, moderate F33.1 Active 963784033 Problem Bilateral low back pain without sciatica M54.5 Active 118296075 Problem Colon polyp K63.5 Active 78510413 Problem Chronic pain syndrome G89.4 Active 182477476 Problem Generalized anxiety disorder F41.1 Active 322911823 ALLERGIES Substance Reaction Event Type Date Status Penicillin V Potassium rash Drug Allergy Jun, Active Neosporin rash Drug Allergy Jun, Active Ibuprofen rash Drug Allergy Jun, Active Glipizide hives, nausea Drug Allergy Jun, Active SOCIAL HISTORY Never Assessed PLAN OF CARE Activity Details Follow Up prn Reason: VITAL SIGNS Height 64 in 2016-06-17 Weight 156.6 lbs 2016-06-17 Temperature 100.8 degrees Fahrenheit 2016-06-17 Heart Rate 118 bpm 2016-06-17 Respiratory Rate 20 2016-06-17 Oximetry w/ oxygen:98 % 2016-06-17 BMI 26.88 kg/m2 2016-06-17 Blood pressure systolic 100 mmHg 2016-06-17 Blood pressure diastolic 68 mmHg 2016-06-17 MEDICATIONS Medication Instructions Dosage Frequency Start Date End Date Duration Status Toprol XL 100 MG Orally Once a day 1 tablet 24h Active Lomotil 2.5-0.025 TAKE TWO TABLETS BY MOUTH FOUR TIMES A DAY. MUST LAST 30 DAYS 30 Active Aricept 10 MG TAKE 1 TABLET ONE TIME DAILY 90 Active Trazodone HCl 150 MG Orally Once a day 1 tablet at bedtime as needed 24h Dec, 30 days Active Symbicort 160-4.5 MCG/ACT INHALE 2 PUFFS TWICE DAILY, IN THE MORNING AND IN THE EVENING 90 Active Eliquis 5 MG Orally 2 times a day 12h Active Trazodone HCl 150 TAKE ONE TABLET BY MOUTH AT BEDTIME NEEDED 30 Active Gabapentin 600 MG TAKE 1 TABLET THREE TIMES DAILY (CHANGE IN DIRECTIONS) 90 Active Hydrocodone-Acetaminophen 7.5-325 MG Orally every 6 hrs 1 tablet as needed 6h Active Albuterol Sulfate (2.5 MG/3ML) 0.083% Inhalation Three times a day 3 ml 8h Jun, 30 days Active Alendronate Sodium 70 MG TAKE 1 TABLET EVERY WEEK 84 Active Singulair 10 MG Orally Once a day take 1 tablet (10 mg) by oral route once daily in the evening 24h Oct, Active Oxygen 5 inhalation all the time Active Xolair 150 mg inject 1.2 milliliters (150 mg) by subcutaneous route every 4 weeks Sep, Active Primidone 250mg Orally Three times a day 1 tablet 8h Active Lomotil 2.5-0.025 MG TAKE 2 TABLETS FOUR TIMES DAILY (MUST LAST 30 DAY SUPPLY EACH FILL) 30 Active Albuterol Sulfate 2.5 mg /3 mL (0.083 %) 1 Each by Inhalation route every 4 hours for cough and wheeze PRN for wheezing or cough Jun, Active Namenda 10 MG TAKE 1 TABLET ONE TIME DAILY 90 Active Abilify 15 MG Orally Once a day 1 tablet 24h Jun, 30 days Active Ambien 5 MG Orally Once a day 1 tablet at bedtime 24h Jul, 30 days Active Topamax 25 MG Orally Twice a day 1 AM, 2 hs 12h Active Promethazine-Codeine 6.25-10 MG/5ML Orally every 6 hrs 5 ml as needed 6h Jun, Jun, 7 days Active Xanax 0.5 MG Orally Three times a day 1 tablet 8h 20 Mar, 2016 Active Nitroglycerin 0.4 MG Active Ventolin HFA 108 (90 Base) MCG/ACT INHALE 2 PUFFS EVERY 4 HOURS NEEDED 16 Active Trintellix 20 MG Orally Once a day 1 tablet 24h 28 Dec, 2015 30 days Active Ropinirole HCl 2 MG TAKE 1 TABLET ONE TIME DAILY AT BEDTIME 90 Active PredniSONE 50 MG Orally Once a day 1 tablet 24h Jun, Jun, 5 days Active Cyclobenzaprine HCl 10 Orally Once a day 2 tablet 24h 30 Active Donepezil Hydrochloride Active Doxycycline Monohydrate 100 MG Orally every 12 hrs 1 tablet 12h Jun, Jun, 10 days Active HydrOXYzine HCl 25 MG TAKE 1 TABLET THREE TIMES DAILY 90 Active Omeprazole 40 MG Orally Once a day 1 capsule 24h Active Baclofen 10 mg Orally 2 times a day 1 tablet with food or milk 12h 24 May, 2016 Jun, 30 day(s) Active Tiotropium [place] Monohydrate 18 MCG Inhalation Once a day 1 capsule 24h Active Simvastatin 20mg Orally Once a day 1 tablet in the evening 24h Active Fluticasone Propionate 50 MCG/ACT Nasally 2 times a day 2 sprays in each nostril 12h Active RESULTS Name Result Date Reference Range Xray : Chest (IN HOUSE) 2016-06-17 PROCEDURES Procedure Date Ordered Result Body Site NEBULIZER TREATMENT 2016-06-17 N/A ALBUTEROL UNIT DOSE FORM INHALED 2016-06-17 N/A [facility] VISIT ESTABLISHED PATIENT June 17, 2016 NEB/MDI RX INITIAL June 17, 2016 MEASURE BLOOD OXYGEN LEVEL June 17, 2016 CHEST X-RAY June 17, 2016 ALBUTEROL INHAL UNIT DOSE 1 MG June 17, 2016 IMMUNIZATIONS No Known Immunizations MEDICAL (GENERAL) [...]
--- OUTSIDE RECORDS SUMMARY | 2017-01-14 15:33 | XMS REPORT ---
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 Active 14786957 Problem Hyperlipidemia E78.5 Active 75346483 Problem Postmenopausal Z78.0 Active 27142528 Problem Osteoporosis M81.0 Active 66269912 Problem Osteopenia M85.80 Active 095091579 Problem Cigarette nicotine dependence without complication F17.210 Active 35027727 Problem Screening breast examination Z12.39 Active 749376787 Problem Migraine without aura and with status migrainosus, not intractable G43.001 Active 191139842 Problem Migraine without aura and without status migrainosus, not intractable G43.009 Active 566815158 Problem Barretts esophagus K22.70 Active 038275199 Problem Coronary artery disease involving [place] coronary artery of [place] 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 I25.118 Active 2393921735655 Problem COPD (chronic obstructive pulmonary disease) J44.9 Active 73372556 Problem Arthritis M19.90 Active 2863861 Problem Vascular dementia without behavioral disturbance F01.50 Active 70682071278471152 Problem Xeroderma Q80.9 Active 74471546 Problem Dementia without behavioral disturbance, unspecified dementia type F03.90 Active 63144756 Problem Cervicalgia M54.2 Active 7187100381487 Problem Paroxysmal atrial fibrillation I48.0 Active 235483381 Problem History of common bile duct surgery Z98.89 Active 601667709 Problem Major depressive disorder, recurrent episode, moderate F33.1 Active 575507305 Problem Bilateral low back pain without sciatica M54.5 Active 204730839 Problem Colon polyp K63.5 Active 41951647 Problem Chronic pain syndrome G89.4 Active 748181091 Problem Generalized anxiety disorder F41.1 Active 925866350 ALLERGIES Substance Reaction Event Type Date Status Penicillin V Potassium rash Drug Allergy Jun, Active Neosporin rash Drug Allergy Jun, Active Ibuprofen rash Drug Allergy Jun, Active Glipizide hives, nausea Drug Allergy Jun, Active SOCIAL HISTORY Never Assessed PLAN OF CARE Activity Details Follow Up prn Reason: VITAL SIGNS Height 64 in 2016-06-14 Weight 154.2 lbs 2016-06-14 Temperature 98.4 degrees Fahrenheit 2016-06-14 Heart Rate 76 bpm 2016-06-14 Respiratory Rate 20 2016-06-14 BMI 26.47 kg/m2 2016-06-14 Blood pressure systolic 106 mmHg 2016-06-14 Blood pressure diastolic 58 mmHg 2016-06-14 MEDICATIONS Medication Instructions Dosage Frequency Start Date End Date Duration Status Oxygen 5 inhalation all the time Active Ambien 5 MG Orally Once a day 1 tablet at bedtime 24h Jul, 30 days Active Ropinirole HCl 2 MG TAKE 1 TABLET ONE TIME DAILY AT BEDTIME 90 Active Topamax 25 MG Orally Twice a day 1 AM, 2 hs 12h Active Namenda 10 MG TAKE 1 TABLET ONE TIME DAILY 90 Active Xolair 150 mg inject 1.2 milliliters (150 mg) by subcutaneous route every 4 weeks Sep, Active Toprol XL 100 MG Orally Once a day 1 tablet 24h Active Lomotil 2.5-0.025 MG TAKE 2 TABLETS FOUR TIMES DAILY (MUST LAST 30 DAY SUPPLY EACH FILL) 30 Active Gabapentin 600 MG TAKE 1 TABLET THREE TIMES DAILY (CHANGE IN DIRECTIONS) 90 Active Fluticasone Propionate 50 MCG/ACT Nasally 2 times a day 2 sprays in each nostril 12h Active Nitroglycerin 0.4 MG Active Albuterol Sulfate 2.5 mg /3 mL (0.083 %) 1 Each by Inhalation route every 4 hours for cough and wheeze PRN for wheezing or cough Jun, Active Symbicort 160-4.5 MCG/ACT INHALE 2 PUFFS TWICE DAILY, IN THE MORNING AND IN THE EVENING 90 Active HydrOXYzine HCl 25 MG TAKE 1 TABLET THREE TIMES DAILY 90 Active Simvastatin 20mg Orally Once a day 1 tablet in the evening 24h Active Lomotil 2.5-0.025 TAKE TWO TABLETS BY MOUTH FOUR TIMES A DAY. MUST LAST 30 DAYS 30 Active Hydrocodone-Acetaminophen 7.5-325 MG Orally every 6 hrs 1 tablet as needed 6h Active Donepezil Hydrochloride Active Omeprazole 40 MG Orally Once a day 1 capsule 24h Active Trazodone HCl 150 TAKE ONE TABLET BY MOUTH AT BEDTIME NEEDED 30 Active Trintellix 20 MG Orally Once a day 1 tablet 24h Dec, 30 days Active Eliquis 5 MG Orally 2 times a day 12h Active Abilify 15 MG Orally Once a day 1 tablet 24h Jun, 30 days Active Singulair 10 MG Orally Once a day take 1 tablet (10 mg) by oral route once daily in the evening 24h Oct, Active Ventolin HFA 108 (90 Base) MCG/ACT INHALE 2 PUFFS EVERY 4 HOURS NEEDED 16 Active Cyclobenzaprine HCl 10 Orally Once a day 2 tablet 24h 30 Active Xanax 0.5 MG Orally Three times a day 1 tablet 8h 20 Mar, 2016 Active Alendronate Sodium 70 MG TAKE 1 TABLET EVERY WEEK 84 Active Aricept 10 MG TAKE 1 TABLET ONE TIME DAILY 90 Active Trazodone HCl 150 MG Orally Once a day 1 tablet at bedtime as needed 24h Dec, 30 days Active Tiotropium [place] Monohydrate 18 MCG Inhalation Once a day 1 capsule 24h Active Baclofen 10 mg Orally 2 times a day 1 tablet with food or milk 12h 24 May, 2016 Jun, 30 day(s) Active Diprolene 0.05 % Externally twice a day 1 application to affected area 12h Jun, Jun, 0 days Active Primidone 250mg Orally Three times a day 1 tablet 8h Active RESULTS No Results PROCEDURES Procedure Date Ordered Result Body Site [facility] VISIT ESTABLISHED PATIENT June 14, 2016 IMMUNIZATIONS No Known Immunizations MEDICAL (GENERAL) [...]
--- OUTSIDE RECORDS SUMMARY | 2017-01-14 15:35 | XMS REPORT ---
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 Active 06776155 Problem Hyperlipidemia E78.5 Active 45396232 Problem Postmenopausal Z78.0 Active 99003267 Problem Osteoporosis M81.0 Active 11691856 Problem Osteopenia M85.80 Active 510500285 Problem Cigarette nicotine dependence without complication F17.210 Active 03669765 Problem Screening breast examination Z12.39 Active 750861207 Problem Migraine without aura and with status migrainosus, not intractable G43.001 Active 119584687 Problem Migraine without aura and without status migrainosus, not intractable G43.009 Active 591292362 Problem Barretts esophagus K22.70 Active 887069862 Problem Coronary artery disease involving [place] coronary artery of [place] 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 I25.118 Active 8998293053962 Problem COPD (chronic obstructive pulmonary disease) J44.9 Active 82765694 Problem Arthritis M19.90 Active 0925548 Problem Vascular dementia without behavioral disturbance F01.50 Active 41419808438206976 Problem Xeroderma Q80.9 Active 92050328 Problem Dementia without behavioral disturbance, unspecified dementia type F03.90 Active 71726926 Problem Cervicalgia M54.2 Active 0644260701230 Problem Paroxysmal atrial fibrillation I48.0 Active 187698354 Problem History of common bile duct surgery Z98.89 Active 386442815 Problem Major depressive disorder, recurrent episode, moderate F33.1 Active 312866465 Problem Bilateral low back pain without sciatica M54.5 Active 336534242 Problem Colon polyp K63.5 Active 53987957 Problem Chronic pain syndrome G89.4 Active 074598290 Problem Generalized anxiety disorder F41.1 Active 643008215 ALLERGIES No Information SOCIAL HISTORY Never Assessed PLAN OF CARE VITAL SIGNS MEDICATIONS Medication Instructions Dosage Frequency Start Date End Date Duration Status Trintellix 20 MG Orally Once a day 1 tablet 24h 28 Dec, 2015 30 days Active RESULTS No Results PROCEDURES No Known [...] Surgical History cholecystectomy Surgical History hernia repair-hiatal 2011 Surgical History C-spine surgery w/ anterior decompression [...]
--- NOTE | 2017-01-14 15:40 | ED Respiratory ---
General Chief Complaint: Respiratory Problems Stated Complaint: PNEUMONIA Source: patient Exam Limitations: no limitations History of Present Illness Time seen by provider: 15:39 Initial Comments To ER with reports of bilateral pneumonia diagnosed at [facility] urgent care 3 days ago. She was prescribed Zithromax and Omnicef without improvement and she would like to be admitted. Upon arrival heart rate 95, O2 95 percent on room air even though she states that she has to wear oxygen at 3 L around the clock at home and did not come with the portable oxygen.. Timing/Duration: just prior to arrival Severity: moderate Associated Symptoms: cough, fever/chills Allergies and Home Medications Allergies Coded Allergies: bacitracin (Verified Allergy, Intermediate, "I BREAK OUT IN A RASH ALL OVER.", 08/26/16) neomycin (Verified Allergy, Intermediate, "I BREAK OUT IN A RASH ALL OVER. ", 08/26/16) polymyxin B (Verified Allergy, Intermediate, "I BREAK OUT IN A RASH ALL OVER.", 08/26/16) Penicillins (Verified Allergy, Unknown, NOT SURE KIND REACTION, 08/26/16) ibuprofen (Unverified Allergy, Unknown, 08/26/16) Home Medications Albuterol Sulfate 2.5 Mg/3 Ml Vial.neb, 2.5 MG NEB Q6H PRN for SHORTNESS OF BREATH, (Reported) Albuterol Sulfate 1 Puff Puff, 2 PUFF IH Q4H PRN for SHORTNESS OF BREATH, ( Reported) 1 PUFF = 90 MCG Albuterol Sulfate 2.5 Mg/3 Ml Vial.neb, 2.5 MG IH Q4H PRN for WHEEZING, #25 Ref 0 Prescribed by: SUZI THOMAS on 12/22/16 1347 Alendronate Sodium 70 Mg Tablet, 70 MG PO Sa, (Reported) Alprazolam 0.5 Mg Tablet, 0.5 MG PO TID PRN for ANXIETY, (Reported) Apixaban 5 Mg Tablet, 5 MG PO BID, (Reported) Aripiprazole 5 Mg Tablet, 5 MG PO DAILY, (Reported) Aripiprazole 20 Mg Tablet, 20 MG PO DAILY, (Reported) TAKES ALONG WITH 5MG TABLET Azithromycin 250 Mg Tablet, 250 MG PO UD, #6 Ref 0 TAKE 2 TABLETS TODAY, THEN TAKE 1 TABLET DAILY FOR 4 MORE DAYS Prescribed by: SUZI THOMAS on 12/22/16 1341 Baclofen 10 Mg Tablet, 10 MG PO BID, (Reported) Baclofen 10 Mg Tablet, 10 MG PO BID, (Reported) Benzonatate 100 Mg Capsule, 1-2 CAP PO Q8H PRN for COUGH, #30 Ref 0 Prescribed by: SUZI THOMAS on 12/22/16 1341 Budesonide/Formoterol Fumarate 10.2 Gm Hfa.aer.ad, 2 PUFF IH BID, (Reported) Cetirizine HCl 10 Mg Tablet, 10 MG PO DAILY, (Reported) Cholecalciferol (Vitamin D3) 5,000 Unit Capsule, 5,000 UNIT PO WEEK, (Reported) Clonazepam 1 Mg Tablet, 1 MG PO HS, (Reported) Colesevelam HCl 625 Mg Tablet, 625 MG PO BID, (Reported) Diltiazem HCl 240 Mg Cap.er.deg, 240 MG PO DAILY, (Reported) Diphenoxylate HCl/Atropine 1 Each Tablet, 2 TAB PO TID, (Reported) Donepezil HCl 10 Mg Tablet, 10 MG PO DAILY, (Reported) Doxycycline Hyclate 100 Mg Tablet, 100 MG PO BID, #20 Prescribed by: DAVIDSON RIVERS on 12/26/16 1315 Gabapentin 600 Mg Tablet, 600 MG PO TID, (Reported) Hydralazine HCl 25 Mg Tablet, 25 MG PO TID, (Reported) Hydrocodone/Acetaminophen 1 Each Tablet, 1 EACH PO Q6H PRN for PAIN, #14 Ref 0 Prescribed by: SUZI THOMAS on 12/22/16 1341 Hydroxyzine HCl 25 Mg Tablet, 25 MG PO TID, (Reported) Magnesium Oxide 250 Mg Tablet, 250 MG PO DAILY, (Reported) Memantine HCl 10 Mg Tablet, 10 MG PO HS, (Reported) Metoprolol Succinate 25 Mg Tab.er.24h, 25 MG PO DAILY, (Reported) Mirabegron 50 Mg Tab.er.24h, 50 MG PO DAILY, (Reported) Montelukast Sodium 10 Mg Tablet, 10 MG PO HS, (Reported) Mv,Ca,Min/Iron Fum/FA/Vit K 1 Each Tablet, 1 EACH PO DAILY, (Reported) Nitroglycerin 0.4 Mg Tab.subl, 0.4 MG PO UD PRN for CHEST PAIN, (Reported) Ondansetron 4 Mg Tab.rapdis, 4 MG PO Q6H PRN for NAUSEA/VOMITING-1ST LINE, #14 Ref 0 Prescribed by: FABIO MERRITT on 01/08/172153 Pantoprazole Sodium 40 Mg Tablet.dr, 40 MG PO BID, (Reported) Prednisone 10 Mg Tab, 10 MG PO DAILY, (Reported) Primidone 250 Mg Tablet, 250 MG PO TID, (Reported) Rifaximin 550 Mg Tablet, 550 MG PO TID, (Reported) Ropinirole HCl 2 Mg Tablet, 2 MG PO HS, (Reported) Simvastatin 20 Mg Tablet, 20 MG PO HS, (Reported) Tiotropium [place] 1 Inh Aerp, 1 CAP IH HS, (Reported) Trazodone HCl 150 Mg Tablet, 150 MG PO HS, (Reported) Trospium Chloride 20 Mg Tablet, 20 MG PO TID, (Reported) Vortioxetine Hydrobromide 20 Mg Tablet, 20 MG PO DAILY, (Reported) Zolpidem Tartrate 5 Mg Tablet, 5 MG PO HS, (Reported) Constitutional: see HPI, chills EENTM: see HPI Respiratory: see HPI, cough, short of breath, No wheezing Cardiovascular: no symptoms reported Genitourinary: no symptoms reported Musculoskeletal: no symptoms reported Skin: no symptoms reported Psychiatric/Neurological: No Symptoms Reported Hematologic/Lymphatic: No Symptoms Reported Immunological/Allergic: no symptoms reported Past Suqtncq-Lzgelu-Aymoky Hx Patient Social History Type Used: Cigarettes Former Smoker, Quit: Dec 05, 2016 2nd Hand Smoke Exposure: Yes Recent Foreign Travel: No Contact w/Someone Who Travel: No Recent Hopitalizations: Yes (RECENT HEART CATH) Immunizations Up To Date Tetanus Booster (TDap): Unknown Date of Pneumonia Vaccine: Nov 11, 2016 Date of Influenza Vaccine: Dec 07, 2015 Seasonal Allergies Seasonal Allergies: Yes Surgeries History of Surgeries: Yes (NECK) Surgeries: Appendectomy, Bladder Surgery, Gallbladder, Orthopedic, Pancreatic Respiratory History of Respiratory Disorde: Yes (OXYGEN AT HS) Respiratory Disorders: Asthma, COPD, Emphysema Cardiovascular History of Cardiac Disorders: Yes Cardiac Disorders: Atrial Fibrillation, High Cholesterol, Hypotension, Irregular Heartbeat, Palpitations Neurological History of Neurological Disord: Yes (PARESTHESIAS OF BILAT LOWER EXT DUE TO FORAMINAL STENOSIS) Neurological Disorders: Headaches /Migraines, Neuropathy 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 System Hx 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 Disorders: No Sexually Transmitted Disease: No HIV/AIDS: No 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 Disorders: Denies Genitourinary Genitourinary Disorders: UTI-Chronic Gastrointestinal History of Gastrointestinal Di: Yes (FREQ DIARRHEA) Gastrointestinal Disorders: Gastroesophageal Reflux, Ulcer Musculoskeletal History of Musculoskeletal Dis: Yes (CHRONIC NECK AND BACK PAIN, CHRONIC HIP PAIN) Musculoskeletal Disorders: Degenerate Disk Disease, Arthritis, Fibromyalgia, Chronic Back Pain Endocrine History of Endocrine Disorders: Yes (DIET CONTROLLED, THYROID NODULES) Endocrine Disorders: Diabetes, Non-Insulin dep HEENT Loss of Vision: Bilateral Hearing Impairment: Denies Cancer History of Cancer: No Psychosocial History of Psychiatric Problem: Yes (ATTEMPTED SUICIDE 26 YRS AGO) Behavioral Health Disorders: Anxiety, Suicide Attempts, Depression Integumentary History of Skin or Integumenta: Yes Skin/Integumentary Disorders: Psoriasis Blood Transfusions History of Blood Disorders: No Adverse Reaction to a Blood Tr: No Family Medical History Significant Family History: No Pertinent Family Hx Family Medial History: Cardiovascular disease G8 BROTHER (TRIPLE BYPASS) Diabetes mellitus 19 MOTHER FH: COPD (chronic obstructive pulmonary disease) 19 MOTHER FH: breast cancer 19 MOTHER FHx: brain cancer 19 FATHER Physical Exam Vital Signs Vital Sign - Last 12Hours 01/14/17 16:00 Temp 96.9 Pulse 95 Resp 20 B/P (MAP) 138/81 Pulse Ox 97 O2 Delivery Nasal Cannula O2 Flow Rate 3.00 Capillary Refill : General Appearance: WD/WN, no apparent distress, other (no accessory muscle use. Speaks in full sentences. No wheezing. Lungs are clear though diminished ) HEENT: PERRL/EOMI, normal ENT inspection Neck: non-tender, full range of motion Respiratory: no respiratory distress, no accessory muscle use Cardiovascular: regular rate, rhythm, no murmur Gastrointestinal: normal bowel sounds, non tender Neurologic/Psychiatric: no motor/sensory deficits, alert, normal mood/affect, oriented x 3 Skin: normal color, warm/dry Focused Exam Evaluation Lactate Level Laboratory Tests 01/14/17 15:56: Lactic Acid Level 2.08*H Lactic Acid Level Laboratory Tests Test 01/14/17 15:56 Lactic Acid Level 2.08 MMOL/L (0.50-2.00) *H Progress/Results/Core Measures Results/Orders Lab Results Laboratory Tests Test 01/14/17 15:56 Range/Units White Blood Count 5.4 4.3-11.0 10^3/uL Red Blood Count 4.33 L 4.35-5.85 10^6/uL Hemoglobin 12.6 11.5-16.0 G/DL Hematocrit 39 35-52 % Mean Corpuscular Volume 89 80-99 FL Mean Corpuscular Hemoglobin 29 25-34 PG Mean Corpuscular Hemoglobin Concent 33 32-36 G/DL Red Cell Distribution Width 15.3 H 10.0-14.5 % Platelet Count 217 130-400 10^3/uL Mean Platelet Volume 10.3 7.4-10.4 FL Neutrophils (%) (Auto) 79 H 42-75 % Lymphocytes (%) (Auto) 15 12-44 % Monocytes (%) (Auto) 6 0-12 % Eosinophils (%) (Auto) 0 0-10 % Basophils (%) (Auto) 0 0-10 % Neutrophils # (Auto) 4.2 1.8-7.8 X 10^3 Lymphocytes # (Auto) 0.8 L 1.0-4.0 X 10^3 Monocytes # (Auto) 0.3 0.0-1.0 X 10^3 Eosinophils # (Auto) 0.0 0.0-0.3 10^3/uL Basophils # (Auto) 0.0 0.0-0.1 10^3/uL Sodium Level 138 135-145 MMOL/L Potassium Level 5.1 H 3.6-5.0 MMOL/L Chloride Level 107 98-107 MMOL/L Carbon Dioxide Level 21 21-32 MMOL/L Anion Gap 10 5-14 MMOL/L Blood Urea Nitrogen 11 7-18 MG/DL Creatinine 0.74 0.60-1.30 MG/DL Estimat Glomerular Filtration Rate > 60 BUN/Creatinine Ratio 15 Glucose Level 151 H 70-105 MG/DL Lactic Acid Level 2.08 *H 0.50-2.00 MMOL/L Calcium Level 9.4 8.5-10.1 MG/DL My Orders Orders - SRAVAN BRUCE APRN Cbc With Automated Diff (01/14/17 15:17) Basic Metabolic Panel (01/14/17 15:17) Blood Culture (01/14/17 15:17) Chest Pa/Lat (2 View) (01/14/17 15:17) Lactic Acid Analyzer (01/14/17 15:17) Saline Lock/Iv-Start (01/14/17 15:17) Vital Signs/I&O Vital Sign - Last 12Hours 01/14/17 16:00 Temp 96.9 Pulse 95 Resp 20 B/P (MAP) 138/81 Pulse Ox 97 O2 Delivery Nasal Cannula O2 Flow Rate 3.00 Departure Communication (Admissions) Progress Notes I did discuss the case with Dr. Schreiber. Given that the patient is afebrile despite no antipyretic use, normal white count, normal oxygen saturation we will discharge to home to follow-up in the clinic this week. Minimally elevated lactic acid has many potential causes but I do not feel that this represents severe sepsis. Impression Impression: Primary Impression: COPD exacerbation Disposition: HOME, SELF-CARE Condition: Stable Departure-Patient Inst. Decision time for Depature: 16:36 Referrals: FAHAD CLEMENT MD (PCP/Family) Primary Care Physician Patient Instructions: Chronic Obstructive Pulmonary Disease (COPD), Including Emphysema, Exacerbation of COPD Add. Discharge Instructions: 1. Follow-up with Nishant DUNLAP later this week. Call later today or tomorrow to make an appointment 2. Return to ER for any concerns 3. Stop the daily dose of steroids that you take and then restart your daily steroids when you run out of my prescription. Scripts Prednisone (Prednisone) 5 Mg Tablet 5 MG PO UD, #54 TAB Take 10 tablets today then reduce by one tablet daily until gone Prov: SRAVAN BRUCE APRN 01/14/17 Copy Copies To 1: FAHAD CLEMENT MD, PETER J APRN Jan 14, 2017 15:40
[2017-01-14 16:05] LABS: BASOPHILS % (AUTO) 0 % (0-10); EOSINOPHILS % (AUTO) 0 % (0-10); LYMPHOCYTES # (AUTO) 0.8 X 10^3 (1.0-4.0); LYMPHOCYTES % (AUTO) 15 % (12-44); MEAN CORPUSCULAR HEMOGLOBIN 29 PG (25-34); MEAN CORPUSCULAR HGB CONC 33 G/DL (32-36); MEAN CORPUSCULAR VOLUME 89 FL (80-99); MEAN PLATELET VOLUME 10.3 FL (7.4-10.4); MONOCYTES # (AUTO) 0.3 X 10^3 (0.0-1.0); MONOCYTES % (AUTO) 6 % (0-12); NEUTROPHILS # (AUTO) 4.2 X 10^3 (1.8-7.8); NEUTROPHILS % (AUTO) 79 % (42-75); PLATELET COUNT 217 10^3/uL (130-400); RED BLOOD COUNT 4.33 10^6/uL (4.35-5.85); RED CELL DISTRIBUTION WIDTH 15.3 % (10.0-14.5); WHITE BLOOD COUNT 5.4 10^3/uL (4.3-11.0)
--- OUTSIDE RECORDS SUMMARY | 2017-01-14 16:13 | XMS REPORT ---
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 Active 88519160 Problem Hyperlipidemia E78.5 Active 07511510 Problem Postmenopausal Z78.0 Active 48406586 Problem Screening breast examination Z12.39 Active 383650970 Problem Osteopenia M85.80 Active 410883450 Problem Migraine without aura and without status migrainosus, not intractable G43.009 Active 394641931 Problem Xeroderma Q80.9 Active 09495861 Problem Coronary artery disease involving [place] coronary artery of [place] 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 I25.118 Active 2377499189544 Problem COPD (chronic obstructive pulmonary disease) J44.9 Active 61006168 Problem Osteoporosis M81.0 Active 88682723 Problem Vascular dementia without behavioral disturbance F01.50 Active 46201705322826991 Problem Cigarette nicotine dependence without complication F17.210 Active 12993106 Problem Dementia without behavioral disturbance, unspecified dementia type F03.90 Active 21922287 Problem Arthritis M19.90 Active 2595626 Problem Major depressive disorder, recurrent episode, moderate F33.1 Active 035679522 Problem Cervicalgia M54.2 Active 7008125912361 Problem Barretts esophagus K22.70 Active 735962100 Problem History of common bile duct surgery Z98.89 Active 418510500 Problem Generalized anxiety disorder F41.1 Active 728727909 Problem Bilateral low back pain without sciatica M54.5 Active 022520773 Problem Paroxysmal atrial fibrillation I48.0 Active 496708256 Problem Chronic pain syndrome G89.4 Active 764952306 ALLERGIES No Information SOCIAL HISTORY Never Assessed PLAN OF CARE VITAL SIGNS MEDICATIONS Medication Instructions Dosage Frequency Start Date End Date Duration Status Xanax 0.5 MG Orally Three times a day 1 tablet 8h 20 Mar, 2016 30 days Active RESULTS No Results PROCEDURES [...]
[2017-01-14 16:22] LABS: ANION GAP 10 MMOL/L (5-14); BLOOD UREA NITROGEN 11 MG/DL (7-18); BUN/CREATININE RATIO 15; CALCIUM 9.4 MG/DL (8.5-10.1); CARBON DIOXIDE 21 MMOL/L (21-32); CHLORIDE 107 MMOL/L (98-107); CREATININE SERUM 0.74 MG/DL (0.60-1.30); GFR ESTIMATED > 60; GLUCOSE 151 MG/DL (70-105); POTASSIUM 5.1 MMOL/L (3.6-5.0); SODIUM 138 MMOL/L (135-145)
--- NOTE | 2017-01-14 16:23 | Diagnostic Imaging Report ---
PA and lateral views of the chest. INDICATION: Cough. Comparison 12/26/2016. FINDINGS: The lateral projection demonstrates a mild focus of increased density projecting over the diaphragm level which does not have a definitive correlate on the PA projection. This could relate to minimal atelectasis rather than pneumonia. The heart size is at the upper limits of normal. No effusion or pneumothorax Mediastinum and zeinab appear unremarkable. Cervical spine fusion hardware seen. IMPRESSION: Subsegmental opacity seen in the lateral projection in the lung base posteriorly may relate to minimal atelectasis rather than pneumonia. Dictated by: Dictated on workstation # [id number]
[2017-01-14] MEDS ORDERED: PRED5TAB PO (16:48)
[2017-01-14 16:53] VITALS: BP 130/79
== END 2017-01-14 16:53 | disposition home or self-care (01) ==
LOC: EDUNIT# 15:09 → ER 15:10
DX: J44.1 Chronic obstructive pulmonary disease with (acute) exacerbation (principal); I48.91 Unspecified atrial fibrillation; E78.00 Pure hypercholesterolemia, unspecified; G43.909 Migraine, unspecified, not intractable, without status migrainosus; E11.40 Type 2 diabetes mellitus with diabetic neuropathy, unspecified; F41.9 Anxiety disorder, unspecified; F32.9 Major depressive disorder, single episode, unspecified; K21.9 Gastro-esophageal reflux disease without esophagitis; Z79.01 Long term (current) use of anticoagulants; Z87.19 Personal history of other diseases of the digestive system; Z82.49 Family history of ischemic heart disease and other diseases of the circulatory system; Z80.3 Family history of malignant neoplasm of breast; Z80.8 Family history of malignant neoplasm of other organs or systems; Z91.5 Personal history of self-harm; Z87.891 Personal history of nicotine dependence; Z90.89 Acquired absence of other organs
CPT/HCPCS: 36415; 71020; 80048; 83605; 85025; 87040

== ENCOUNTER 2017-02-17 12:38 | Emergency (ER) | payer MEDICARE, MEDICAID ==
[~2017-02-17] VITALS: Ht 162.6 cm; Wt 74.0 kg
[~2017-02-17 12:38] MED LIST changes: +NYST1000 PO; +PRED5TAB PO
--- OUTSIDE RECORDS SUMMARY | 2017-02-17 12:48 | XMS REPORT | Continuity of Care Document ---
Author Author [employer] Organization [facility] Address Unknown Phone Unavailable Care Team Providers Care Clarifier Name Role Phone [employer] Unavailable Unavailable Problems Medications Allergies, Adverse Reactions, Alerts Immunizations Results Vital Signs Encounters Location Location Details Encounter Type Encounter Number Reason For Visit Attending Provider ADM Date DC Date Status Source [facility] [id number] Outpatient [id number] . LAB [facility] 01/12/2013 Active [employer] [facility] OUTPATIENT [id number] DENIS FRANCO 09/23/2016 09/23/2016 Active [facility] SPECIMEN [id number] CELESTINA NOWAK 01/23/2017 Active [facility] OUTPATIENT [id number] CELESTINA NOWAK 01/23/20172016 Active [facility] O CELESTINA NOWAK Active [facility] Procedures Plan of Care Social History Assessment and Plan Family History Value Date Source Advance Directives Order Name Results Value Date Source
--- OUTSIDE RECORDS SUMMARY | 2017-02-17 12:50 | XMS REPORT | Clinical Summary ---
Author Author [facility] Address Unknown Phone Unavailable Care Team Providers Care Sales Vice President Name Role Phone PCP Unavailable Source Comments Some departments are not documenting in the electronic medical record. If you do not see the information that you expected, contact Release of Information in the Health Information Management department at [phone] for further assistance in locating additional records.[facility] Allergies Active Allergy Reactions Severity Noted Date Comments Fhaew-Mixlw-Dvknaun-Pramo RASH Medium 01/23/2017 xine Ibuprofen 06/09/2009 Current Medications Prescription Sig. Disp. Refills Start End Date Status Date ropinirole (REQUIP) 2 mg Take 2 mg [...] mouth Active mcg capsule for inhaler daily. ARIPiprazole (ABILIFY) 10 Take 20 mg by mouth Active mg tablet daily. [...] Needed for Diarrhea. tablet gabapentin (NEURONTIN) Take 600 mg by mouth Active 600 mg tablet three times daily. apixaban (ELIQUIS) 5 mg Take 5 mg by mouth twice Active tab tablet daily. other medication 1 Dose. 5L/NC home oxygen Active primidone (MYSOLINE) 250 Take 250 mg by mouth Active mg tablet every 8 hours. FLUTICASONE PROPIONATE Insert into nose as Active (FLONASE NA) directed. CETIRIZINE HCL (ZYRTEC Take by mouth. Active PO) mirabegron(+) ER Take 1 Tab by mouth daily 30 Tab 3 11/12/19 Active (MYRBETRIQ) 50 mg for 120 days. 17 17 tabletIndications: Indications: URINARY URGE URINARY URGE INCONTINENCE INCONTINENCE trospium(+) (SANCTURA) 20 Take 1 tablet by mouth 180 tablet 3 Active mg tablet three times daily before 17 meals. vortioxetine(+) Take 20 mg by mouth Active (TRINTELLIX) 20 mg tablet daily. ARIPiprazole (ABILIFY) 5 Take 5 mg by mouth daily. Active mg tablet baclofen (LIORESAL) 20 mg Take 20 mg by mouth three Active tablet times daily. MULTIVIT WITH Take by mouth daily. Active CALCIUM,IRON,MIN (WOMEN'S MULTIPLE VITAMINS PO) zolpidem (AMBIEN) 5 mg Take 5 mg by mouth at Active tablet bedtime as needed for Sleep. ERGOCALCIFEROL (VITAMIN Take 50,000 Units by Active D2) (VITAMIN D PO) mouth every 7 days. rifAXIMin (XIFAXAN) 550 Take 550 mg by mouth Active mg tablet every [address] Take 40 mg by mouth twice Active (PROTONIX) 40 mg tablet daily. diltiazem CD (CARDIZEM Take 240 mg by mouth Active CD) 240 mg capsule daily. metoprolol XL (TOPROL XL) Take 25 mg by mouth Active 25 mg extended release daily. tablet hydrOXYzine (ATARAX) 25 Take 25 mg by mouth three Active mg tablet times daily as needed for Itching. colesevelam(+) (WELCHOL) Take 1,875 mg by mouth Active 625 mg tablet twice daily with meals. montelukast (SINGULAIR) Take 10 mg by mouth at Active 10 mg tablet bedtime daily. traZODone (DESYREL) 150 Take 150 mg by mouth at Active mg tablet bedtime as needed. CLONAZEPAM PO Take by mouth at bedtime Active as needed. albuterol (VENTOLIN HFA) Inhale 2 puffs by mouth Active 90 mcg/actuation inhaler into the lungs daily. Shake well before use. colestipol (COLESTID) 1 Take 1 g by mouth Three 01/24/20 Discontin gram tablet Times Daily. 17 ued Quetiapine (SEROQUEL XR) Take 400 mg by mouth 01/24/20 Discontin 400 mg Tb24 Daily. 17 ued ramelteon,+, (ROZEREM) 8 Take 8 mg by mouth At 01/24/20 Discontin mg Tab Bedtime Daily. 17 ued Omalizumab (XOLAIR) 150 Inject 150 mg into 01/24/20 Discontin mg SolR area(s) as directed every 17 ued 30 days. digoxin (LANOXIN) 125 mcg Take 0.125 mg by mouth 01/24/20 Discontin tablet daily. 17 ued oxyCODONE (ROXICODONE) 5 Take 5 mg by mouth every 01/24/20 Discontin mg tablet 6 hours as needed for 17 ued Pain Desvenlafaxine (PRISTIQ) Take by mouth daily. 01/24/20 Discontin 100 mg Tb24 17 ued octreotide (SANDOSTATIN) Inject 1 mL into area(s) 60 mL 1 01/21/20 01/24/20 Discontin 50 mcg/mL injection as directed twice daily 15 17 ued with meals. Syringe (Disposable) 1 mL To inject octreotide 50 60 Syringe 12 01/24/20 Discontin syrg mcg BID with meals 15 17 ued Needle (Disp) 25 G 25 x To inject octreotide 60 Each 12 01/28/20 Discontin 5/8 " ndle 50mcg BID with meals 15 17 ued estrogens, conjugated(+) half a gram per vagina 1 Container 2 01/24/20 Discontin (PREMARIN) 0.625 mg/g twice per week 16 17 ued vaginal creamIndications: Vaginal atrophy, OAB (overactive bladder) metoprolol XL (TOPROL XL) Take 100 mg by mouth 01/24/20 Discontin 100 mg tablet daily. 17 ued oxybutynin XL (DITROPAN Take 1 Tab by mouth 90 Tab 0 11/02/19 Discontin XL) 10 mg daily. 16 17 ued tabletIndications: Urge incontinence of urine oxybutynin XL (DITROPAN Take 1 Tab by mouth 90 Tab 3 02/07/20 Discontin XL) 10 mg daily. 16 17 ued tabletIndications: Vaginal atrophy, OAB (overactive bladder) omeprazole DR(+) Take 1 Cap by mouth twice 60 Cap 2 07/26/19 Discontin (PRILOSEC) 40 mg capsule daily before meals. 17 17 ued Active Problems Problem Noted [...] Heartburn 01/19/2015 COPD (chronic obstructive pulmonary disease) (HCC) 05/18/2012 Diabetes mellitus (HCC) 05/18/2012 TIA (transient ischemic attack) 05/18/2012 Diarrhea 05/18/2012 Encounters Date Type Specialty Care Team Description 02/14/2017 Orders Only Nephrology Alvaro Duval MD Hematuria, unspecified type 01/23/2017 [facility] Alvaro Duval MD Hematuria, unspecified Encounter 01/23/2017 [facility] Alvaro Duval MD Hematuria, unspecified Encounter 01/23/2017 Office Visit Nephrology Gilles Ness MD Chronic kidney disease, Alvaro Duval MD unspecified CKD stage (Primary Dx);Hematuria, unspecified type 01/23/2017 Documentation Nephrology Alvaro Duval MD 12/20/2016 Refill Uro Sap Developer Gilles Ness MD 12/16/2016 Telephone Uro Sap Developer Rain Tariq MD General Question 12/02/2016 Telephone Uro Sap Developer Gilles Ness MD Medication Question from Last 3 Months Family History [...] Vital Sign Reading Time Taken Blood Pressure 109/77 01/23/2017 9:45 AM CDT Pulse 74 01/23/2017 9:45 AM CDT Temperature 36.7 C (98.1 F) 01/23/2017 9:27 AM CDT Respiratory Rate 20 10/25/2015 10:12 AM CDT Oxygen Saturation 96% 09/26/2015 5:00 PM CDT Inhaled Oxygen - - Concentration Weight 74.2 kg (163 lb 9.6 oz) 01/23/2017 9:27 AM CDT Height 162.6 cm (5' 4") 01/23/2017 9:27 AM CDT Body Mass Index 28.08 01/23/2017 9:27 AM CDT Plan of Treatment Health Maintenance Due Date Last Done Comments HEPATITIS C SCREENING 1953 PHYSICAL (COMPREHENSIVE) 1960 EXAM PERTUSSIS VACCINE 1964 TETANUS VACCINE 1970 DILATED EYE EXAM 07/21/1971 FOOT EXAM 07/21/1971 HBA1C 07/21/1971 MICROALBUMIN 07/21/1971 PNEUMONIA VACCINE (DM) 07/21/1971 CERVICAL CANCER SCREENING 07/21/1983 BREAST CANCER SCREENING 1993 COLORECTAL CANCER 07/21/2003 SCREENING SHINGLES VACCINE 2013 INFLUENZA VACCINE 11/05/2016 Results * CT ABD/PELV WO CONTRAST (02/11/2017) Specimen Performing Laboratory OTHER OUTSIDE RADIOLOGY * ANTI-NEUT CYTO AB (ANCA/PANCA) (01/23/2017 11:08 AM) Component Value Ref Range C-ANCA <20,NEGATIVE TITER P-ANCA <20,NEGATIVE TITER Specimen Performing Laboratory Blood MAIN [facility] [address] [place] [address] * CBC AND DIFF (01/23/2017 11:08 AM) Component Value Ref Range White Blood Cells 9.4 4.5 - 11.0 K/UL RBC 4.65 4.0 - 5.0 M/UL Hemoglobin 13.6 12.0 - 15.0 GM/DL Hematocrit 41.5 36 - 45 % MCV 89.2 80 - 100 FL MCH 29.2 26 - 34 PG MCHC 32.8 32.0 - 36.0 G/DL RDW 16.3 (H) 11 - 15 % Platelet Count 270 150 - 400 K/UL MPV 8.4 7 - 11 FL Neutrophils 70 41 - 77 % Lymphocytes 22 (L) 24 - 44 % Monocytes 6 4 - 12 % Eosinophils 1 0 - 5 % Basophils 1 0 - 2 % Absolute Neutrophil Count 6.50 1.8 - 7.0 K/UL Absolute Lymph Count 2.10 1.0 - 4.8 K/UL Absolute Monocyte Count 0.60 0 - 0.80 K/UL Absolute Eosinophil Count 0.10 0 - 0.45 K/UL Absolute Basophil Count 0.10 0 - 0.20 K/UL Specimen Performing Laboratory Blood MAIN [facility] [address] [place] [address] * C3 COMPLEMENT 3 (01/23/2017 11:08 AM) Component Value Ref Range Complemnt C3 127.0 88 - 200 MG/DL Specimen Performing Laboratory Blood MAIN [facility] [address] [place] [address] * C4 COMPLEMENT 4 (01/23/2017 11:08 AM) Component Value Ref Range Complemnt C4 48.0 10 - 49 MG/DL Specimen Performing Laboratory Blood MAIN [facility] [address] [place] [address] * ANTI-NUCLEAR ANTIBODY(EVONNE) (01/23/2017 11:08 AM) Component Value Ref Range EVONNE Screen <80 <80 TITER Specimen Performing Laboratory Blood MAIN [facility] [address] [place] [address] * COMPREHENSIVE METABOLIC PANEL (01/23/2017 11:08 AM) Component Value Ref Range Sodium 137 137 - 147 MMOL/L Potassium 4.5 3.5 - 5.1 MMOL/L Chloride 102 98 - 110 MMOL/L Glucose 106 (H) 70 - 100 MG/DL Blood Urea Nitrogen 8 7 - 25 MG/DL Creatinine 0.67 0.4 - 1.00 MG/DL Calcium 9.9 8.5 - 10.6 MG/DL Total Protein 6.5 6.0 - 8.0 G/DL Total Bilirubin 0.4 0.3 - 1.2 MG/DL Albumin 3.8 3.5 - 5.0 G/DL Alk Phosphatase 72 25 - 110 U/L AST (SGOT) 31 7 - 40 U/L CO2 28 21 - 30 MMOL/L ALT (SGPT) 50 7 - 56 U/L Anion Gap 7 3 - 12 eGFR Non >60 >60 mL/min Comment: The [...] Performing Laboratory Blood [facility] [address] [place] [address] * PROTEIN/CR RATIO,UR RAN (01/23/2017 10:22 AM) Component Value Ref Range Protein, Random <4 MG/DL Creatinine, Random 22 MG/DL Specimen Performing Laboratory Urine [facility] [address] [place] [address] * POC URINE DIPSTICK AUTO READ (01/23/2017) Component Value Ref Range Urine Glucose POC norm Urine Bilirubin POC neg Urine Ketone POC neg Urine Specific Crawford 1.005 POC Urine Blood POC neg Urine PH POC 8 Urine Protein POC neg Urine Urobilinogen POC norm Urine Nitrite POC neg Urine Leukocytes POC neg Color,UA Turbidity,UA Specimen Performing Laboratory Urine IN CLINIC from Last 3 Months
--- OUTSIDE RECORDS SUMMARY | 2017-02-17 12:50 | XMS REPORT | Encounter Summary ---
Author Author [facility] Organization [facility] Address Unknown Phone Unavailable Care Team Providers Care Chyron Operator Name Role Phone PCP Unavailable Reason for Referral * Radiology Services Status Reason Specialty Diagnoses / Referred By Referred To Procedures Contact Contact New Request Radiology Diagnoses Simin Hematuria, MD Alvaro unspecified type [address] [place] [address] [place] ABD/PELV WO [place], [place] CONTRAST [address] Encounter Details Date Type Department Care Team Description 02/14/2017 Orders Only [facility] Alvaro Duval MD Hematuria, unspecified Physicians - Internal [address] type Medicine [place] [address] [place] [address] MED [phone] [place] [address] Social History Tobacco Use Types Packs/Day Years Used Date Former Smoker Cigarettes 40 Quit: 05/29/2015 Smokeless Tobacco: Never Used Alcohol Use Drinks/Week oz/Week Comments No 0 Standard 0.0 drinks or equivalent Sex Assigned at Date Recorded Not on file as of this encounter Plan of Treatment Not on fileas of this encounter Results * CT ABD/PELV WO CONTRAST (02/11/2017) Specimen Performing Laboratory OTHER OUTSIDE RADIOLOGY in this encounter Visit Diagnoses Diagnosis Hematuria, unspecified type in this encounter
--- OUTSIDE RECORDS SUMMARY | 2017-02-17 12:50 | XMS REPORT | Encounter Summary ---
Author Author [facility] Organization [facility] Address Unknown Phone Unavailable Care Team Providers Care Computer Installation Engineer Name Role Phone PCP Unavailable Encounter Details Date Type Department Care Team Description [facility] Hematuria, unspecified Encounter [address] [place] [address] [address] [place] [address] [phone] Social History Tobacco Use Types Packs/Day Years Used Date Former Smoker Cigarettes 40 Quit: 05/29/2015 Smokeless Tobacco: Never Used Alcohol Use Drinks/Week oz/Week Comments No 0 Standard 0.0 drinks or equivalent Sex Assigned at Date Recorded Not on file as of this encounter Medications at Time of Discharge Medication Sig. Disp. Refills Start Date End Date albuterol (VENTOLIN HFA) Inhale 2 puffs by mouth 90 mcg/actuation inhaler into the lungs daily. Shake well before use. alendronate (FOSAMAX) 70 Take 70 mg by mouth every mg tablet 7 days. ALPRAZolam (XANAX) 1 mg Take 1 mg by mouth as tablet Needed. apixaban (ELIQUIS) 5 mg Take 5 mg by mouth twice tab tablet daily. ARIPiprazole (ABILIFY) 10 Take 20 mg by mouth mg tablet daily. ARIPiprazole (ABILIFY) 5 Take 5 mg by mouth daily. mg tablet baclofen (LIORESAL) 20 mg Take 20 mg by mouth three tablet times daily. budesonide/formoterol Inhale 2 Puffs by mouth (SYMBICORT) 160/4.5 mcg daily. HFAA inhalation CETIRIZINE HCL (ZYRTEC Take by mouth. PO) CLONAZEPAM PO Take by mouth at bedtime as needed. colesevelam(+) (WELCHOL) Take 1,875 mg by mouth 625 mg tablet twice daily with meals. diltiazem CD (CARDIZEM Take 240 mg by mouth CD) 240 mg capsule daily. diphenoxylate/atropine Take 2 Tabs by mouth as (LOMOTIL) 2.5/0.025 mg Needed for Diarrhea. tablet donepezil (ARICEPT) 10 mg Take 10 mg by mouth At tablet Bedtime Daily. ERGOCALCIFEROL (VITAMIN Take 50,000 Units by D2) (VITAMIN D PO) mouth every 7 days. FLUTICASONE PROPIONATE Insert into nose as (FLONASE NA) directed. gabapentin (NEURONTIN) Take 600 mg by mouth 600 mg tablet three times daily. hydrOXYzine (ATARAX) 25 Take 25 mg by mouth three mg tablet times daily as needed for Itching. memantine,+, (NAMENDA) 10 Take 10 mg by mouth Twice mg tablet Daily. metoprolol XL (TOPROL XL) Take 25 mg by mouth 25 mg extended release daily. tablet mirabegron(+) ER Take 1 Tab by mouth daily 30 Tab 3 11/11/201603/11 (MYRBETRIQ) 50 mg for 120 days. tabletIndications: Indications: URINARY URGE URINARY URGE INCONTINENCE INCONTINENCE montelukast (SINGULAIR) Take 10 mg by mouth at 10 mg tablet bedtime daily. MULTIVIT WITH Take by mouth daily. CALCIUM,IRON,MIN (WOMEN'S MULTIPLE VITAMINS PO) nitroglycerin (NITROSTAT) Place 0.4 mg under tongue 0.4 mg tablet every 5 minutes as needed for Chest Pain. other medication 1 Dose. 5L/NC home oxygen pantoprazole DR Take 40 mg by mouth twice (PROTONIX) 40 mg tablet daily. primidone (MYSOLINE) 250 Take 250 mg by mouth mg tablet every 8 hours. rifAXIMin (XIFAXAN) 550 Take 550 mg by mouth mg tablet every 12 hours. ropinirole (REQUIP) 2 mg Take 2 mg by mouth At tablet Bedtime Daily. simvastatin (ZOCOR) 20 mg Take 20 mg by mouth At tablet Bedtime Daily. tiotropium (SPIRIVA) 18 Inhale 18 mcg by mouth mcg capsule for inhaler daily. traZODone (DESYREL) 150 Take 150 mg by mouth at mg tablet bedtime as needed. trospium(+) (SANCTURA) 20 Take 1 tablet by mouth 180 tablet 3 2016 mg tablet three times daily before meals. vortioxetine(+) Take 20 mg by mouth (TRINTELLIX) 20 mg tablet daily. zolpidem (AMBIEN) 5 mg Take 5 mg by mouth at tablet bedtime as needed for Sleep. as of this encounter Plan of Treatment Not on fileas of this encounter Results * PROTEIN/CR RATIO,UR RAN (01/23/2017 10:22 AM) Component Value Ref Range Protein, Random <4 MG/DL Creatinine, Random 22 MG/DL Specimen Performing Laboratory Urine [facility] [address] [place] [address] in this encounter Visit Diagnoses Diagnosis Hematuria, unspecified type in this encounter Admitting Diagnoses Diagnosis Hematuria, unspecified in this encounter
--- OUTSIDE RECORDS SUMMARY | 2017-02-17 12:50 | XMS REPORT | Encounter Summary ---
Author Author [facility] Organization [facility] Address Unknown Phone Unavailable Care Team Providers Care Shook Machine Operator Name Role Phone PCP Unavailable Encounter Details Date Type Department Care Team Description 01/23/2017 Documentation [facility] Alvaro Duval MD Physicians - [facility] [address] [facility] [address] [place] [address] MED [phone] [place] [address] Social History Tobacco Use Types Packs/Day Years Used Date Former Smoker Cigarettes 40 Quit: 05/29/2015 Smokeless Tobacco: Never Used Alcohol Use Drinks/Week oz/Week Comments No 0 Standard 0.0 drinks or equivalent Sex Assigned at Date Recorded Not on file as of this encounter Progress Notes * Miracle Baeza LPN - 01/23/2017 3:06 PM CDT Order for CT scan faxed to [facility] per pt request. Fax # [phone]. in this encounter Plan of Treatment Not on fileas of this encounter Visit Diagnoses Not on filein this encounter
--- OUTSIDE RECORDS SUMMARY | 2017-02-17 12:51 | XMS REPORT | Encounter Summary ---
Author Author [facility] Organization [facility] Address Unknown Phone Unavailable Care Team Providers Care Telecom Field Technician Name Role Phone PCP Unavailable Reason for Referral * Consult, Test & Treat Status Reason Specialty Diagnoses / Referred By Referred To Procedures Contact Contact No Auth Needed Specialty Urology Diagnoses Aracelis Duval Kerri T, Services Hematuria, MD MONICA John Required unspecified type [address] [place] [address] Phone: * Radiology Services Status Reason Specialty Diagnoses / Referred By Referred To Procedures Contact Contact New Request Radiology Diagnoses Pk Duval Pinelopi, MD unspecified type [address] [place] [address] ABD/PELV WO [place], [place] CONTRAST [address] Reason for Visit * Reason Comments Chronic Kidney Disease * Consult, Test & Treat Status Reason Specialty Diagnoses / Referred By Referred To Procedures Contact Contact New Request Specialty Nephrology Diagnoses Gilles Ness MD Services Hematuria [address] [place] [address] Encounter Details Date Type Department Care Team Description 01/23/2017 Office Visit [facility] Gilles Ness MD Chronic kidney disease, Physicians - Internal [address] unspecified CKD stage Medicine [address] (Primary Dx);Hematuria, [address] [address] unspecified type [address] [phone] [place] [address] Alvaro saleem MD [phone] [address] [facility] [address] [place] [address] [phone] Social History Tobacco Use Types Packs/Day Years [...] F) 01/23/2017 9:27 AM CDT Respiratory Rate - - Oxygen Saturation - - Inhaled Oxygen - - Concentration Weight 74.2 kg (163 lb 9.6 oz) 01/23/2017 9:27 AM CDT Height 162.6 cm (5' 4") 01/23/2017 9:27 AM CDT Body Mass Index 28.08 01/23/2017 9:27 AM CDT in this encounter Instructions * Patient Instructions - Alvaro Duval MD - 01/23/2017 9:00 AM CDT Labs today CT-abdo/pelvis F/up with urology in this encounter Progress Notes * Alvaro Duval MD - 01/23/2017 9:00 AM CDT Formatting of this note may be different from the original. Date of Service: 01/23/2017 Subjective: Nara Huizar is a 61 y.o. female referred to nephrology clinic for hematuria History of Present Illness Mrs. Huizar is a 61 yo pleasant female with multiple medical conditions as listed below including Atrial flutter/PAF on anticoagulation with Eliquis, diet- controlled DM, COPD, TIAs, CAD and overactive bladder. She was referred to our clinic for evaluation of hematuria. She has been experiencing intermittently hematuria detected by urinalysis on multiple occasions and she also reports episodes of gross hematuria. Last episode of gross hematuria was 10 days ago. Today her UA is negative for RBCs. She admits 1 episode of UTI q 6 months and she has some times difficulty passing urine and urgency in the setting of overactive bladder. Of note, Mrs. Huizar had a CT-scan revealing mild thickening of bladder wall and underwent a cystoscopy in September which was unremarkable. Has had a prior bladder sling as well as bulking agent. Urodynamic studies performed by outside physician were reported as unremarkable. Otherwise, she denies Hx of recurrent fevers, mouth ulcers, rash, pleuritic chest pain, arthritis Today Mrs. Huizar reports feeling tired. She has been diagnosed with pneumonia and she is taking levaquin. She still has SOB and cough and she will follow-up with her PCP next week. She also reports R. flank pain for the last few months which radiates in the front. She denies recent hospitalizations. Past Medical History: Diagnosis Date Acid reflux Alzheimer disease 2004 Anxiety disorder Arthritis Asthma Colon polyps Depression DM (diabetes mellitus) (HCC) Dyslipidemia Generalized headaches Heart disease Hyperlipemia Irritable bowel disease Irritable bowel syndrome with diarrhea On supplemental oxygen therapy 3L/NC Stroke (HCC) Thyroid disorder Urinary tract infection Past Surgical History: Procedure Laterality Date HX CHOLECYSTECTOMY 1973 HX APPENDECTOMY 1973 HX TUBAL LIGATION 1981 HX HEART CATHETERIZATION 2012 HX CERVICAL FUSION 2014 has had a total of 4 revisions per patient, last one in 2014 COLONOSCOPY [facility] [place] SIGMOIDOSCOPY FLX DX W/COLLJ SPEC BR/WA IF PFRMD N/A 09/26/2015 SIGMOIDOSCOPY DIAGNOSTIC to rule out ulcerative colitis. performed by Edgardo Torres MD at [facility] [place] SIGMOIDOSCOPY FLX W/BIOPSY SINGLE/MULTIPLE 09/26/2015 SIGMOIDOSCOPY BIOPSY performed by Edgardo Torres MD at ENDO/GI BLADDER SURGERY EPIDURAL BLOCK Social History Social History Marital status: Spouse name: N/A Number of children: N/A Years of education: N/A Occupational History Disabled Social History Main Topics Smoking status: Former Smoker Years: 42.00 Types: Cigarettes Quit date: 05/29/2015 Smokeless tobacco: Never Used Alcohol use No Drug use: No Sexual activity: Not on file Other Topics Concern Not on file Social History Narrative Family History Problem Relation Age of Onset Celiac Disease Neg Hx Cancer-Colon Neg Hx Colon Polyps Neg Hx Cancer-Breast Mother Heart problem Mother Brain Tumor Father Cancer Father 65 Brain tumor Heart Attack Brother Heart Disease Brother Heart Surgery Brother Cancer-Breast Maternal Grandmother Alzheimer's Maternal Grandfather Cancer-Breast Paternal Grandmother Cancer Paternal Grandfather Heart problem Paternal Grandfather Cancer-Lung Paternal Grandfather Review of Systems Constitutional: Positive for fatigue and fever. Negative for activity change and appetite change. Eyes: Negative. Respiratory: Positive for cough and shortness of breath. Cardiovascular: Positive for leg swelling. Negative for chest pain. Gastrointestinal: Negative for abdominal distention, abdominal pain, nausea and vomiting. Genitourinary: Positive for difficulty urinating, flank pain, frequency, hematuria and urgency. Musculoskeletal: Positive for arthralgias and back pain. Negative for myalgias. Skin: Negative for rash and wound. Neurological: Negative for tremors, seizures and syncope. Hematological: Bruises/bleeds easily. Psychiatric/Behavioral: Positive for decreased concentration. Negative for agitation. Objective: albuterol (VENTOLIN HFA) 90 mcg/actuation inhaler Inhale 2 puffs by mouth into the lungs daily. Shake well before use. alendronate (FOSAMAX) 70 mg tablet Take 70 mg by mouth every 7 days. ALPRAZolam (XANAX) 1 mg tablet Take 1 mg by mouth as Needed. apixaban (ELIQUIS) 5 mg tab tablet Take 5 mg by mouth twice daily. ARIPiprazole (ABILIFY) 10 mg tablet Take 20 mg by mouth daily. ARIPiprazole (ABILIFY) 5 mg tablet Take 5 mg by mouth daily. baclofen (LIORESAL) 20 mg tablet Take 20 mg by mouth three times daily. budesonide/formoterol (SYMBICORT) 160/4.5 mcg HFAA inhalation Inhale 2 Puffs by mouth daily. CETIRIZINE HCL (ZYRTEC PO) Take by mouth. CLONAZEPAM PO Take by mouth at bedtime as needed. colesevelam(+) (WELCHOL) 625 mg tablet Take 1,875 mg by mouth twice daily with meals. diltiazem CD (CARDIZEM CD) 240 mg capsule Take 240 mg by mouth daily. diphenoxylate/atropine (LOMOTIL) 2.5/0.025 mg tablet Take 2 Tabs by mouth as Needed for Diarrhea. donepezil (ARICEPT) 10 mg tablet Take 10 mg by mouth At Bedtime Daily. ERGOCALCIFEROL (VITAMIN D2) (VITAMIN D PO) Take 50,000 Units by mouth every 7 days. FLUTICASONE PROPIONATE (FLONASE NA) Insert into nose as directed. gabapentin (NEURONTIN) 600 mg tablet Take 600 mg by mouth three times daily. hydrOXYzine (ATARAX) 25 mg tablet Take 25 mg by mouth three times daily as needed for Itching. memantine,+, (NAMENDA) 10 mg tablet Take 10 mg by mouth Twice Daily. metoprolol XL (TOPROL XL) 25 mg extended release tablet Take 25 mg by mouth daily. mirabegron(+) ER (MYRBETRIQ) 50 mg tablet Take 1 Tab by mouth daily for 120 days. Indications: URINARY URGE INCONTINENCE montelukast (SINGULAIR) 10 mg tablet Take 10 mg by mouth at bedtime daily. MULTIVIT WITH CALCIUM,IRON,MIN (WOMEN'S MULTIPLE VITAMINS PO) Take by mouth daily. nitroglycerin (NITROSTAT) 0.[address] 0.4 mg under tongue every 5 minutes as needed for Chest Pain. other medication 1 Dose. 5L/NC home oxygen pantoprazole DR (PROTONIX) 40 mg tablet Take 40 mg by mouth twice daily. primidone (MYSOLINE) 250 mg tablet Take 250 mg by mouth every 8 hours. rifAXIMin (XIFAXAN) 550 mg tablet Take 550 mg by mouth every 12 hours. ropinirole (REQUIP) 2 mg tablet Take 2 mg by mouth At Bedtime Daily. simvastatin (ZOCOR) 20 mg tablet Take 20 mg by mouth At Bedtime Daily. tiotropium (SPIRIVA) 18 mcg capsule for inhaler Inhale 18 mcg by mouth daily. traZODone (DESYREL) 150 mg tablet Take 150 mg by mouth at bedtime as needed. trospium(+) (SANCTURA) 20 mg tablet Take 1 tablet by mouth three times daily before meals. (Patient taking differently: Take 20 mg by mouth twice daily.) vortioxetine(+) (TRINTELLIX) 20 mg tablet Take 20 mg by mouth daily. zolpidem (AMBIEN) 5 mg tablet Take 5 mg by mouth at bedtime as needed for Sleep. Vitals: 01/23/17 0927 01/23/17 0945 BP: 99/70 109/77 Pulse: 72 74 Temp: 36.7 C (98.1 F) Weight: 74.2 kg (163 lb 9.6 oz) Height: 162.6 cm (64") Body mass index is 28.08 kg/(m^2). Physical Exam Constitutional: She is oriented to person, place, and time. She appears well- developed and well-nourished. HENT: Head: Normocephalic and atraumatic. Eyes: EOM are normal. No scleral icterus. Neck: Normal range of motion. No JVD present. No tracheal deviation present. Cardiovascular: Normal rate and normal heart sounds. Exam reveals no friction rub. No murmur heard. Pulmonary/Chest: Effort normal and breath sounds normal. She has no wheezes. Abdominal: Soft. Bowel sounds are normal. Musculoskeletal: She exhibits no edema. Neurological: She is alert and oriented to person, place, and time. Skin: Skin is warm. No rash noted. Protein,UA Date Value Ref Range Status 09/23/2016 NEG NEG-NEG Final Creatinine, Random Date Value Ref Range Status 01/23/2017 22 MG/DL Final CBC w/Diff Lab Results Component Value Date/Time WBC 9.4 01/23/2017 11:08 AM RBC 4.65 01/23/2017 11:08 AM HGB 13.6 01/23/2017 11:08 AM HCT 41.5 01/23/2017 11:08 AM MCV 89.2 01/23/2017 11:08 AM MCH 29.2 01/23/2017 11:08 AM MCHC 32.8 01/23/2017 11:08 AM RDW 16.3 (H) 01/23/2017 11:08 AM PLTCT 270 01/23/2017 11:08 AM MPV 8.4 01/23/2017 11:08 AM Lab Results Component Value Date/Time NEUT 70 01/23/2017 11:08 AM ANC 6.50 01/23/2017 11:08 AM LYMA 22 (L) 01/23/2017 11:08 AM ALC 2.10 01/23/2017 11:08 AM LATISHA 6 01/23/2017 11:08 AM AMC 0.60 01/23/2017 11:08 AM EOSA 1 01/23/2017 11:08 AM AEC 0.10 01/23/2017 11:08 AM BASA 1 01/23/2017 11:08 AM ABC 0.10 01/23/2017 11:08 AM Comprehensive Metabolic Profile Lab Results Component Value Date/Time NA 137 01/23/2017 11:08 AM K 4.5 01/23/2017 11:08 AM CL 102 01/23/2017 11:08 AM CO2 28 01/23/2017 11:08 AM GAP 7 01/23/2017 11:08 AM BUN 8 01/23/2017 11:08 AM CR 0.67 01/23/2017 11:08 AM GLU 106 (H) 01/23/2017 11:08 AM Lab Results Component Value Date/Time CA 9.9 01/23/2017 11:08 AM ALBUMIN 3.8 01/23/2017 11:08 AM TOTPROT 6.5 01/23/2017 11:08 AM ALKPHOS 72 01/23/2017 11:08 AM AST 31 01/23/2017 11:08 AM ALT 50 01/23/2017 11:08 AM TOTBILI 0.4 01/23/2017 11:08 AM GFR >60 01/23/2017 11:08 AM GFRAA >60 01/23/2017 11:08 AM Renal US 11/2008: The right kidney measures 12.5 x 4.4 cm. The left kidney measures 12.1 x 4.5 cm. No hydronephrosis or nephrolithiasis is identified. The urinary bladder is unremarkable. Assessment and Plan: 61 yo female with multiple medical problems including overactive bladder, A flutter on A/C with Eliquis and intermittent hematuria Of note she has normal kidney function, no proteinuria and she is normotensive We will obtain a basic immunologic w/up including ANAs, C3/C4 levels, ANCAs but based on her clinical presentation, I don't think that her hematuria is of glomerular origin and I do not see an indication for kidney biopsy. I suspect that her urological issues in combination to her anticoagulation treatment are causing the hematuria. She can follow-up with Dr. Harika Hsu, who saw her before for urinary incontinence. Given her R. Flank pain, I would like to repeat a CT abdo/pelvis to r/u kidney stone and malignancy. RTC 3 months in this encounter Plan of Treatment Name Priority Associated Diagnoses Order Schedule AMB REFERRAL TO UROLOGY Routine Hematuria, unspecified Ordered: 2016 type as of this encounter Results * CT ABD/PELV WO CONTRAST (02/11/2017) Specimen Performing Laboratory OTHER OUTSIDE RADIOLOGY * ANTI-NUCLEAR ANTIBODY(EVONNE) (01/23/2017 11:08 AM) Component Value Ref Range EVONNE Screen <80 <80 TITER Specimen Performing Laboratory Blood MAIN LAB [address] [place] [address] * ANTI-NEUT CYTO AB (ANCA/PANCA) (01/23/2017 11:08 AM) Component Value Ref Range C-ANCA <20,NEGATIVE TITER P-ANCA <20,NEGATIVE TITER Specimen Performing Laboratory Blood MAIN LAB [address] [place] [address] * C4 COMPLEMENT 4 (01/23/2017 11:08 AM) Component Value Ref Range Complemnt C4 48.0 10 - 49 MG/DL Specimen Performing Laboratory Blood MAIN [facility] [address] [place] [address] * C3 COMPLEMENT 3 (01/23/2017 11:08 AM) Component Value Ref Range Complemnt C3 127.0 88 - 200 MG/DL Specimen Performing Laboratory Blood MAIN [facility] [address] [place] [address] * COMPREHENSIVE METABOLIC PANEL (01/23/2017 11:08 AM) [...] Performing Laboratory [facility] [address] [place] [address] * CBC AND DIFF (01/23/2017 11:08 AM) [...] - 0.20 K/UL Specimen Performing Laboratory [facility] [address] [place] [address] * PROTEIN/CR RATIO,UR RAN (01/23/2017 10:22 AM) Component Value Ref Range Protein, Random <4 MG/DL Creatinine, Random 22 MG/DL Specimen Performing Laboratory Urine [facility] [address] [place] [address] * POC URINE DIPSTICK AUTO READ (01/23/2017) Component Value Ref Range Urine Glucose POC norm Urine Bilirubin POC neg Urine Ketone POC neg Urine Specific [place] 1.005 POC Urine Blood POC neg Urine PH POC 8 Urine Protein POC neg Urine Urobilinogen POC norm Urine Nitrite POC neg Urine Leukocytes POC neg Color,UA Turbidity,UA Specimen Performing Laboratory Urine IN CLINIC in this encounter Visit Diagnoses Diagnosis Chronic kidney disease, unspecified CKD stage - Primary Hematuria, unspecified type in this encounter
--- OUTSIDE RECORDS SUMMARY | 2017-02-17 12:51 | XMS REPORT | Encounter Summary ---
Author Author [facility] Organization [facility] Address Unknown Phone Unavailable Care Team Providers Care Hvac Field Service Technician Name Role Phone PCP Unavailable Encounter Details Date Type Department Care Team Description 01/23/2017 [facility] ClinAlvaro Campuzano MD Hematuria, unspecified Encounter [address] [place] [address] [address] [place] [address] [phone] Social History Tobacco Use Types Packs/Day Years [...] on fileas of this encounter Results * ANTI-NUCLEAR ANTIBODY(EVONNE) (01/23/2017 11:08 AM) Component Value Ref Range EVONNE Screen <80 <80 TITER Specimen Performing Laboratory Blood MAIN LAB [address] [place] [address] * ANTI-NEUT CYTO AB (ANCA/PANCA) (01/23/2017 11:08 AM) Component Value Ref Range C-ANCA <20,NEGATIVE TITER P-ANCA <20,NEGATIVE TITER Specimen Performing Laboratory Blood MAIN LAB [address] [place] [address] * C4 COMPLEMENT 4 (01/23/2017 11:08 AM) Component Value Ref Range Complemnt C4 48.0 10 - 49 MG/DL Specimen Performing Laboratory Blood MAIN LAB [address] [place] [address] * C3 COMPLEMENT 3 (01/23/2017 11:08 AM) Component Value Ref Range Complemnt C3 127.0 88 - 200 MG/DL Specimen Performing Laboratory Blood MAIN LAB [address] [place] [address] * COMPREHENSIVE METABOLIC PANEL (01/23/2017 11:08 AM) [...] Performing Laboratory Blood [facility] [address] [place] [address] * CBC AND DIFF (01/23/2017 11:08 AM) [...] Performing Laboratory Blood [facility] [address] [place] [address] in this encounter Visit Diagnoses Diagnosis Hematuria, unspecified type in this encounter Admitting Diagnoses Diagnosis Hematuria, unspecified in this encounter
--- OUTSIDE RECORDS SUMMARY | 2017-02-17 12:54 | XMS REPORT | Encounter Summary ---
Author Author [facility] Organization [facility] Address Unknown Phone Unavailable Care Team Providers Care Tassel Making Machine Operator Name Role Phone PCP Unavailable Reason for Visit * Reason Comments Medication Refill Encounter Details Date Type Department Care Team Description 12/20/2016 Refill [facility] Gilles Ness MD Physicians - OBGYN [address] [place] [address] [address] FLO[address] POD C [phone] [place] [address] [phone] Social History Tobacco Use Types Packs/Day Years [...]
--- OUTSIDE RECORDS SUMMARY | 2017-02-17 12:55 | XMS REPORT | Encounter Summary ---
Author Author [facility] Organization [facility] Address Unknown Phone Unavailable Care Team Providers Care Denial Resolution Specialist Name Role Phone PCP Unavailable Reason for Visit * Reason Comments General Question Encounter Details Date Type Department Care Team Description 12/16/2016 Telephone [facility] Rain Tariq MD General Question Physicians - OBGYN [address] [place] [address] OFFICE BLDG [phone] [place] [address] Social History Tobacco Use Types [...]
--- OUTSIDE RECORDS SUMMARY | 2017-02-17 13:00 | XMS REPORT | Encounter Summary ---
Author Author [facility] Organization [facility] Address Unknown Phone Unavailable Care Team Providers Care Weapons Officer [employer] Name Role Phone PCP Unavailable Reason for Visit * Reason Comments Medication Question Encounter Details Date Type Department Care Team Description 12/02/2016 Telephone [facility] Gilles Ness MD Medication Question Physicians - OBGYN [address] [place] [address] OFFICE BLDG [phone] [place] [address] Social History Tobacco Use Types [...]
--- OUTSIDE RECORDS SUMMARY | 2017-02-17 13:00 | XMS REPORT ---
Author Author LUIS FOWLER Organization [facility] Address [address] [place] [address] Care Team Providers Care Career Services Assistant Name Role Phone TRUONG FOWLERICE Unavailable PROBLEMS Type Condition ICD9-CM Code ICE92-TQ Code Onset Dates Condition Status SNOMED Code Problem Essential tremor G25.0 Active 02156788 Problem Gastroparesis K31.84 Active 062325809 Problem Hyperlipidemia E78.5 Active 05737227 Problem Osteoporosis M81.0 Active 41231575 Problem COPD (chronic obstructive pulmonary disease) J44.9 Active 50505611 Problem Coronary artery disease involving craig coronary artery of craig 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 I25.118 Active 1512707746976 Problem Cigarette nicotine dependence without complication F17.210 Active 26000879 Problem Barretts esophagus K22.70 Active 895162293 Problem Vascular dementia without behavioral disturbance F01.50 Active [id number] Problem History of common bile duct surgery Z98.89 Active 510834956 Problem Arthritis M19.90 Active 2356402 Problem Xeroderma Q80.9 Active 53561261 Problem Dementia without behavioral disturbance, unspecified dementia type F03.90 Active 88423957 Problem Chronic fatigue R53.82 Active 79916179 Problem Postconcussion syndrome F07.81 Active 28634602 Problem Paroxysmal atrial fibrillation I48.0 Active 122260434 Problem Cervicalgia M54.2 Active 1948990827397 Problem Colon polyp K63.5 Active 93322360 Problem Migraine without aura and without status migrainosus, not intractable G43.009 Active 064185309 Problem Unspecified psychosis F29 Active 56792671 Problem Gastroesophageal reflux disease, esophagitis presence not specified K21.9 Active 809943223 Problem Migraine without aura and with status migrainosus, not intractable G43.001 Active 324581556 Problem 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 Active 74233224 Problem Major depressive disorder, recurrent episode, moderate F33.1 Active 731466893 Problem Chronic pain syndrome G89.4 Active 676184131 Problem Generalized anxiety disorder F41.1 Active 268935469 Problem Osteopenia M85.80 Active 138836137 Problem Screening breast examination Z12.39 Active 982034368 Problem Bilateral low back pain without sciatica M54.5 Active 095372267 Problem Postmenopausal Z78.0 Active 02207443 ALLERGIES Substance Reaction Event Type Date Status Penicillin V Potassium rash Drug Allergy August, Active Neosporin rash Drug Allergy August, Active Ibuprofen rash Drug Allergy August, Active Glipizide hives, nausea Drug Allergy August, Active SOCIAL HISTORY Never Assessed PLAN OF CARE Activity Details Follow Up prn Reason: VITAL SIGNS Height 64 in 2016-08-27 Weight 157.6 lbs 2016-08-27 Temperature 97.5 degrees Fahrenheit 2016-08-27 Heart Rate 70 bpm 2016-08-27 Respiratory Rate 20 2016-08-27 BMI 27.05 kg/m2 2016-08-27 Blood pressure systolic 108 mmHg 2016-08-27 Blood pressure diastolic 64 mmHg 2016-08-27 MEDICATIONS Medication Instructions Dosage Frequency Start Date End Date Duration Status Aricept 10 MG TAKE 1 TABLET ONE TIME DAILY 90 Active HydrOXYzine HCl 25 MG Orally three times a day 1 tablet as needed 8h 30 days Active Eliquis 5 MG Orally 2 times a day 12h Active Trazodone HCl 150 MG Orally Once a day 1 tablet at bedtime as needed 24h 28 Dec, 2015 30 days Active Omeprazole 40 MG Orally Once a day 1 capsule 24h Active Fluticasone Propionate 50 MCG/ACT Nasally 2 times a day 2 sprays in each nostril 12h Active Alendronate Sodium 70 MG TAKE 1 TABLET EVERY WEEK 84 Active Cetirizine HCl 10 MG Orally Once a day 1 tablet as needed 24h Active Cyclobenzaprine HCl 10 Orally Once a day 2 tablet 24h 30 Active Tiotropium [place] Monohydrate 18 MCG Inhalation Once a day 1 capsule 24h Active Ventolin HFA 108 (90 Base) MCG/ACT INHALE 2 PUFFS EVERY 4 HOURS NEEDED 16 Active Oxybutynin Chloride ER 10 MG Orally Once a day 1 tablet 24h Active Reglan 5 mg Orally 4 times a day 1 tablet 6h 30 days Active Ropinirole HCl 2 MG TAKE 1 TABLET ONE TIME DAILY AT BEDTIME 90 Active Donepezil Hydrochloride Active Betamethasone Dipropionate 0.05 % Externally Once a day 1 application to affected area 24h Active Topamax 25 MG Orally Twice a day 1 AM, 2 hs 12h Active Ambien 5 MG Orally Once a day 1 tablet at bedtime 24h Jul, 30 days Active Lomotil 2.5-0.025 mg Orally Four times a day TWO TABLETS 6h 30 Active Abilify 20 MG Orally Once a day 1 tablet 24h 10 Jul, 2016 30 day(s) Active Naproxen 500 MG Orally every 12 hrs 1 tablet as needed 12h Active Nitroglycerin 0.4 MG Active Benefiber - Active Singulair 10 MG Orally Once a day take 1 tablet (10 mg) by oral route once daily in the evening 24h Oct, Active Welchol 3.75 GM Orally Once a day 1 packet mixed with water with a meal 24h Active Oxygen 5 inhalation all the time Active Trintellix 20 MG Orally Once a day 1 tablet 24h 28 Dec, 2015 30 days Active Baclofen 10 mg Orally 2 times a day 1 tablet with food or milk 12h 24 May, 2016 30 day(s) Active Simvastatin 20mg Orally Once a day 1 tablet in the evening 24h Active Symbicort 160-4.5 MCG/ACT INHALE 2 PUFFS TWICE DAILY, IN THE MORNING AND IN THE EVENING 90 Active Xanax 0.5 MG Orally Three times a day 1 tablet 8h Mar, 30 days Active Primidone 250mg Orally Three times a day 1 tablet 8h Active Gabapentin 600 MG TAKE 1 TABLET THREE TIMES DAILY (CHANGE IN DIRECTIONS) 90 Active Zofran ODT 4 MG Orally every 4 hrs 1 tablet on the tongue and allow to dissolve 4h Jul, 1 days Active Trospium Chloride 20 MG Orally Once a day 1 tablet at bedtime on an empty stomach 24h Active Albuterol Sulfate 2.5 mg /3 mL (0.083 %) 1 Each by Inhalation route every 4 hours for cough and wheeze PRN for wheezing or cough Jun, Active Xolair 150 mg inject 1.2 milliliters (150 mg) by subcutaneous route every 4 weeks Sep, Active Toprol XL 100 MG Orally Once a day 1 tablet 24h Active Namenda 10 MG TAKE 1 TABLET ONE TIME DAILY 90 Active RESULTS No Results PROCEDURES Procedure Date Ordered Result Body Site [facility] VISIT ESTABLISHED PATIENT August 27, 2016 IMMUNIZATIONS No Known Immunizations MEDICAL (GENERAL) [...]
[2017-02-17 13:10] VITALS: BP 129/86
--- OUTSIDE RECORDS SUMMARY | 2017-02-17 13:26 | XMS REPORT ---
Author Author Israel Alvarez Organization [facility] Address [address] [place], [place] [id number] Care Team Providers Care Personnel Monitor Name Role Phone Israel Alvarez PCP Allergies and Adverse Reactions Name Reaction [...] day Botox 200 unit injection recon soln 01/13/2017 04/13/2017 INject 155 units into 31 sites as [...] 155b Units today. Need 1 Vial 1 [id number] hydrocodone-acetaminophen 7.5-500 mg oral tablet 08/06/2012 09/05/2012 take 1 tablet by oral route every 4-6 hours as needed for pain for 30 days sumatriptan succinate 6 mg/0.5 mL subcutaneous cartridge 08/19/2012 09/18/2012 INJECT 1 DOSE (6 MG/0.5 ML) - MAY REPEAT IN 1 HOUR IF PAIN RETURNS OR INCREASES IN SEVERITY (MAX OF 2 DOSES IN 24 HOURS) Fiorinal-Codeine #3 [id number] mg oral capsule 04/30/2012 05/11/2012 take 1 capsule ([id number] mg) by oral route every 4 hours [...] simon given to patient Fioricet with Codeine 38-331-27-30 mg oral capsule 04/13/2013 08/03/2013 take 1 [...] HC BMI BSA BMI Percentile O2 Sat(%) 01/31/2017 9:15:00 AM 120 mmHg 62 mmHg 96 bpm 18 rpm 97.6 F 165 lbs 64 in 28.32 kg/m2 1.84 m2 93 % 11/07/2016 9:27:00 AM 116 mmHg 62 mmHg 64 bpm 16 rpm 97.4 F 155 lbs 64 in 26.6054 kg/m 1.7818 m 95 % 08/08/2016 9:18:00 AM 108 mmHg 66 mmHg 62 bpm 16 rpm 97.1 F 155.6 lbs 96 % 05/09/2016 8:54:00 AM 108 mmHg 80 mmHg 66 bpm 12 rpm 97.3 F 150.25 lbs 64 in 25.7901 kg/m 1.7543 m 96 % 02/08/2016 8:51:00 AM 108 mmHg 74 mmHg 51 bpm 12 rpm 97.7 F 150.25 lbs 64 in 25.79 kg/m2 1.75 m2 96 % 11/17/2015 8:30:00 AM 110 mmHg 64 mmHg 56 bpm 14 rpm 96.6 F 150.25 lbs 64 in 25.7901 kg/m 1.7543 m 98 % 11/09/2015 8:35:00 AM 104 mmHg 62 mmHg 49 bpm 12 rpm 97.4 F 97 % 08/10/2015 9:20:00 AM 142 mmHg 80 mmHg 76 bpm 20 rpm 97.7 F 155 lbs 64 in 26.6054 kg/m 1.7818 m 93 % 04/10/2015 10:23:00 AM 126 mmHg 74 mmHg 76 bpm 20 rpm 97.5 F 157 lbs 64 in 26.95 kg/m2 1.79 m2 02/02/2015 9:46:00 AM 124 mmHg 68 mmHg 76 bpm 18 rpm 97.4 F 140 lbs 62 in 25.6061 kg/m 1.6667 m 01/03/2015 8:37:00 AM 125 mmHg 80 mmHg 84 bpm 18 rpm 98.5 F 132 lbs 64 in 22.66 kg/m2 1.64 m2 10/11/2014 9:34:00 AM 104 mmHg 62 mmHg 76 bpm 18 rpm 98.3 F 150 lbs 64 in 25.7472 kg/m 1.7528 m 08/02/2014 4:02:00 PM 142 mmHg 86 mmHg 74 bpm 18 rpm 96.2 F 149 lbs 64 in 25.58 kg/m2 1.75 m2 2014 9:47:00 AM 136 mmHg 82 mmHg 74 bpm 20 rpm 97.4 F 149 lbs 64 in 25.5755 kg/m 1.747 m 07/19/2014 8:53:00 AM 138 mmHg 82 mmHg 74 bpm 20 rpm 97.1 F 149 lbs 64 in 25.58 kg/m2 1.75 m2 07/12/2014 9:27:00 AM 130 mmHg 72 mmHg 78 bpm 16 rpm 97.9 F 148.125 lbs 64 in 25.4253 kg/m 1.7418 m 07/05/2014 9:40:00 AM 122 mmHg 64 mmHg 88 bpm 16 rpm 98.8 F 146 lbs 64 in 25.06 kg/m2 1.73 m2 06/13/2014 3:11:00 PM 140 mmHg 86 mmHg 73 bpm 20 rpm 96.8 F 139 lbs 64 in 23.8591 kg/m 1.6873 m 06/10/2014 9:42:00 AM 142 mmHg 76 mmHg 65 bpm 18 rpm 97 F 141 lbs 64 in 24.20 kg/m2 1.70 m2 05/17/2014 8:53:00 AM 122 mmHg 70 mmHg 88 bpm 18 rpm 97 F 137 lbs 64 in 23.5158 kg/m 1.6751 m 03/25/2014 10:23:00 AM 122 mmHg 80 mmHg 94 bpm 16 rpm 97.9 F 129 lbs 11/25/2013 9:13:00 AM 112 mmHg 64 mmHg 76 bpm 16 rpm 97.1 F 126 lbs 64 in 21.6276 kg/m 1.6065 m 10/29/2013 10:14:00 AM 120 mmHg 60 mmHg 50 bpm 16 rpm 97 F 135.25 lbs 64 in 23.22 kg/m2 1.66 m2 10/05/2013 8:41:00 AM 122 mmHg 68 mmHg 56 bpm 16 rpm 96.4 F 134.375 lbs 64 in 23.0652 kg/m 1.659 m 09/28/2013 8:32:00 AM 100 mmHg 60 mmHg 66 bpm 16 rpm 96.8 F 133 lbs 64 in 22.83 kg/m2 1.65 m2 08/03/2013 10:00:00 AM 132 mmHg 80 mmHg 78 bpm 18 rpm 97.6 F 137 lbs 64 in 23.5158 kg/m 1.6751 m 05/27/2013 8:19:00 AM 104 mmHg 60 mmHg 74 bpm 18 rpm 97.3 F 138 lbs 11/17/2012 10:04:00 AM 102 mmHg 58 mmHg 78 bpm 16 rpm 96.9 F 144 lbs 64 in 24.7173 kg/m 1.7174 m 09/16/2012 8:48:00 AM 112 mmHg 64 mmHg 74 bpm 16 rpm 97 F 146 lbs 64 in 25.06 kg/m2 1.73 m2 09/02/2012 11:04:00 AM 92 mmHg 50 mmHg 78 bpm 18 rpm 97.7 F 145 lbs 64 in 24.8889 kg/m 1.7234 m 08/19/2012 10:00:00 AM 118 mmHg 64 mmHg 74 bpm 20 rpm 97.5 F 150 lbs 64 in 25.75 kg/m2 1.75 m2 08/06/2012 8:08:00 AM 102 mmHg 60 mmHg 80 bpm 16 rpm 97.8 F 151 lbs 64 in 25.9188 kg/m 1.7586 m 07/15/2012 9:17:00 AM 118 mmHg 68 mmHg 78 bpm 20 rpm 98 F 148 lbs 64 in 25.40 kg/m2 1.74 m2 07/07/2012 8:34:00 AM 124 mmHg 78 mmHg 72 bpm 18 rpm 97.9 F 145 lbs 07/01/2012 11:10:00 AM 132 mmHg 74 mmHg 78 bpm 16 rpm 97.6 F 149 lbs 64 in 25.58 kg/m2 1.75 m2 06/03/2012 10:59:00 AM 124 mmHg 70 mmHg 78 bpm 18 rpm 97.2 F 160 lbs 64 in 27.4637 kg/m 1.8103 m 05/21/2012 10:20:00 AM 132 mmHg 70 mmHg 88 bpm 16 rpm 97.5 F 157 lbs 64 in 26.95 kg/m2 1.79 m2 05/06/2012 1:55:00 PM 122 mmHg 70 mmHg 78 bpm 16 rpm 97.7 F 161 lbs 64 in 27.6353 kg/m 1.8159 m 04/14/2012 1:27:00 PM 112 mmHg 70 mmHg 78 bpm 18 rpm 97.6 F 166 lbs 64 in 28.49 kg/m2 1.84 m2 03/26/2012 2:04:00 PM 116 mmHg 64 mmHg 76 bpm 16 rpm 97 F 155 lbs 64 in 26.6054 kg/m 1.7818 m 03/17/2012 9:45:00 AM 112 mmHg 64 mmHg 78 bpm 20 rpm 97.8 F 157 lbs 03/03/2012 1:06:00 PM 152 mmHg 86 mmHg 78 bpm 18 rpm 98.3 F 154 lbs 69 in 22.7416 kg/m 1.8441 m 02/06/2012 10:46:00 AM 100 mmHg 60 mmHg 88 bpm 14 rpm 97.4 F 159 lbs 64 in 27.29 kg/m2 1.80 m2 01/21/2012 8:10:00 AM 142 mmHg 80 mmHg 84 bpm 14 rpm 97.9 F 161 lbs 64 in 27.6353 kg/m 1.8159 m 01/02/2012 9:13:00 AM 112 mmHg 58 mmHg [...] AM Botox Toxin Type A, 1 unit [id number] Reviewed 01/03/2015 12:00 AM CHEMODENERV MUSC MIGRAINE Reviewed 02/02/2015 12:00 AM Pain Management Reviewed 02/02/2015 12:00 AM Occupational Therapy Consult Reviewed 02/02/2015 12:00 AM Kenalog, Per 10 Mg [facility]#9873-2507-91 Reviewed 02/02/2015 12:00 AM DRAIN/INJ JOINT/BURSA W/O US Reviewed 04/10/2015 12:00 AM Botox Toxin Type A, 1 unit [id number] Reviewed 04/10/2015 12:00 AM CHEMODENERV MUSC MIGRAINE Reviewed 11/17/2015 12:00 AM INJ TRIGGER POINT 1/2 MUSCL Reviewed 08/06/2011 12:00 AM N BLOCK INJ OCCIPITAL Reviewed 08/06/2011 12:00 AM Phenergan 25 Mg Im [facility] [address]-90 (Physiatry) Reviewed 08/06/2011 12:00 AM Toradol 15 Mg,[facility]#[id number] Reviewed 08/20/2011 12:00 AM N BLOCK INJ OCCIPITAL Reviewed 08/20/2011 12:00 AM INJECT TRIGGER POINTS 3/> Reviewed 09/17/2011 12:00 AM INJECT TRIGGER POINTS 3/> Reviewed 09/17/2011 12:00 AM N BLOCK INJ OCCIPITAL Reviewed 10/01/2011 12:00 AM INJECT TRIGGER POINTS 3/> Reviewed 10/15/2011 12:00 AM INJECT TRIGGER POINTS 3/> Reviewed 10/15/2011 12:00 AM Imitrex 6mg [facility] #35674-640-27 Reviewed 10/15/2011 12:00 AM Imitrex, 6mg [facility]#: 4647-0917-25 Reviewed 11/04/2011 12:00 AM INJECT TRIGGER POINTS 3/> Reviewed 11/04/2011 12:00 AM Imitrex 6mg [facility] #97545-675-37 Reviewed 11/04/2011 12:00 AM N BLOCK INJ OCCIPITAL Reviewed 11/04/2011 12:00 AM DRAIN/INJ JOINT/BURSA W/O US Reviewed 12/05/2011 12:00 AM INJECT TRIGGER POINTS 3/> Reviewed 12/05/2011 12:00 AM N BLOCK INJ OCCIPITAL Reviewed 12/19/2011 12:00 AM INJECT TRIGGER POINTS 3/> Reviewed 12/19/2011 12:00 AM Imitrex 6mg [facility] #60933-484-72 Reviewed 12/19/2011 12:00 AM THER/PROPH/DIAG INJ SC/IM Reviewed 12/19/2011 12:00 AM Imitrex, 6mg [facility]#: [id number] Reviewed 01/02/2012 12:00 AM INJECT TRIGGER POINTS 3/> Reviewed 01/02/2012 12:00 AM Imitrex 6mg [facility] #09079-118-69 Reviewed 01/02/2012 12:00 AM THER/PROPH/DIAG INJ SC/IM Reviewed 01/02/2012 12:00 AM Imitrex, 6mg [facility]#: 4010-3375-86 Reviewed 01/02/2012 12:00 AM N BLOCK INJ OCCIPITAL Reviewed 01/21/2012 12:00 AM INJECT TRIGGER POINTS 3/> Reviewed 01/21/2012 12:00 AM N BLOCK INJ OCCIPITAL Reviewed 02/06/2012 12:00 AM THER/PROPH/DIAG INJ SC/IM Reviewed 02/06/2012 12:00 AM Imitrex, 6mg [facility]#: 7623-7793-63 Reviewed 02/06/2012 12:00 AM Imitrex 6mg [facility] #58464-638-69 Reviewed 02/06/2012 12:00 AM Therapeutic, prophylactic or diagnostic injection (specify substance or drug); subcutaneous or intramuscular Reviewed 03/03/2012 12:00 AM THER/PROPH/DIAG INJ SC/IM Reviewed 03/03/2012 12:00 AM Imitrex, 6mg [place]#: 5545-1059-71 Reviewed 03/03/2012 12:00 AM N BLOCK OTHER PERIPHERAL Reviewed 03/03/2012 12:00 AM INJECT TRIGGER POINTS 3/> Reviewed 03/17/2012 12:00 AM THER/PROPH/DIAG INJ SC/IM Reviewed 03/17/2012 12:00 AM Imitrex, 6mg [facility]#: 2834-1741-29 Reviewed 03/17/2012 12:00 AM Norflex, Up to 60 Mg [facility]#17247-524-65 Reviewed 03/26/2012 12:00 AM INJECT TRIGGER POINTS 3/> Reviewed 03/26/2012 12:00 AM INJECTION,MARCAINE/BUPIVACAINJ [facility] [address]-38 (Hunter) Reviewed 03/26/2012 12:00 AM Imitrex 6mg [facility] #54249-462-27 Reviewed 03/26/2012 12:00 AM Norflex, Up to 60 Mg [facility]#30950-141-48 Reviewed 04/14/2012 12:00 AM THER/PROPH/DIAG INJ SC/IM Reviewed 04/14/2012 12:00 AM Imitrex, 6mg [place]#: 2177-7838-19 Reviewed 04/14/2012 12:00 AM THER/PROPH/DIAG INJ SC/IM Reviewed 04/14/2012 12:00 AM Norflex, Up to 60 Mg [facility]#96577-752-19 Reviewed 04/14/2012 12:00 AM N BLOCK INJ OCCIPITAL Reviewed 04/14/2012 12:00 AM INJECT TRIGGER POINTS 3/> Reviewed 04/14/2012 12:00 AM Bupivicaine, 30 ml [facility]#1190-5330-84 Reviewed 05/06/2012 12:00 AM Bupivicaine, 30 ml [facility]#4697-8855-36 Reviewed 05/06/2012 12:00 AM INJECT TRIGGER POINTS 3/> Reviewed 05/06/2012 12:00 AM Norflex, Up to 60 Mg [facility]#74955-005-90 Reviewed 05/06/2012 12:00 AM Imitrex 6mg [place] #03760-315-10 Reviewed 05/06/2012 12:00 AM N BLOCK INJ OCCIPITAL Reviewed 05/06/2012 12:00 AM Kenalog, Per 10 Mg [facility]#5170-1028-39 Reviewed 05/21/2012 12:00 AM Truman Chemodenervation muscle(s); muscle(s) innervated by facial Reviewed 05/21/2012 12:00 AM TRUMAN CHEMODENERVATION MUSCLE(S); NECK MUSCLE(S)(EG, FOR SPASMODIC Reviewed 05/21/2012 12:00 AM BOTULINUM TOXIN TYPE A, PER UNIT-Botox [facility] [id number] Huizar Reviewed 06/03/2012 12:00 AM INJECT TRIGGER POINTS 3/> Reviewed 06/03/2012 12:00 AM Bupivicaine, 30 ml [facility]#1594-7252-03 Reviewed 06/03/2012 12:00 AM Imitrex 6mg [facility] #42098-562-44 Reviewed 06/03/2012 12:00 AM Norflex, Up to 60 Mg [facility]#23713-260-17 Reviewed 06/03/2012 12:00 AM THER/PROPH/DIAG INJ SC/IM Reviewed 06/03/2012 12:00 AM Imitrex, 6mg [facility]#: 2565-9024-36 Reviewed 06/03/2012 12:00 AM Norflex, Up to 60 Mg [facility]#13598-302-86 Reviewed 07/01/2012 12:00 AM INJECT TRIGGER POINTS 3/> Reviewed 07/01/2012 12:00 AM Bupivicaine, 30 ml [facility]#9613-0130-43 Reviewed 07/01/2012 12:00 AM N BLOCK INJ OCCIPITAL Reviewed 07/07/2012 12:00 AM THER/PROPH/DIAG INJ SC/IM Reviewed 07/07/2012 12:00 AM Imitrex, 6mg [facility]#: 8445-9860-51 Reviewed 07/07/2012 12:00 AM Toradol 15 Mg [place]#2810-2694-84 Reviewed 07/15/2012 12:00 AM INJECT TRIGGER POINTS 3/> Reviewed 07/15/2012 12:00 AM INJECTION,MARCAINE/BUPIVACAINJ [facility] [address]-14 (Hunter) Reviewed 07/15/2012 12:00 AM MASSAGE THERAPY Reviewed 07/15/2012 12:00 AM THER/PROPH/DIAG INJ SC/IM Reviewed 07/15/2012 12:00 AM Imitrex, 6mg [facility]#: 9316-7251-28 Reviewed 07/15/2012 12:00 AM Norflex, Up to 60 Mg [facility]#03835-149-97 Reviewed 07/15/2012 12:00 AM Imitrex 6mg [facility] #84901-387-11 Reviewed 07/15/2012 12:00 AM Norflex, Up to 60 Mg [facility]#16301-274-13 Reviewed 08/06/2012 12:00 AM INJECT TRIGGER POINTS 3/> Reviewed 08/06/2012 12:00 AM N BLOCK INJ OCCIPITAL Reviewed 08/06/2012 12:00 AM THER/PROPH/DIAG INJ SC/IM Reviewed 08/06/2012 12:00 AM Imitrex, 6mg [facility]#: 3723-0529-14 Reviewed 08/06/2012 12:00 AM Norflex, Up to 60 Mg [facility]#82948-775-11 Reviewed 08/19/2012 12:00 AM BOTULINUM TOXIN TYPE A, PER UNIT-Botox [facility] [id number] Huizar Reviewed 08/19/2012 12:00 AM Truman Chemodenervation muscle(s); muscle(s) innervated by facial Reviewed 08/19/2012 12:00 AM TRUMAN CHEMODENERVATION MUSCLE(S); NECK MUSCLE(S)(EG, FOR SPASMODIC Reviewed 08/19/2012 12:00 AM Imitrex 6mg [facility] #70320-810-30 Reviewed 08/19/2012 12:00 AM Norflex, Up to 60 Mg [facility]#74940-940-24 Reviewed 08/19/2012 12:00 AM THER/PROPH/DIAG INJ SC/IM Reviewed 08/19/2012 12:00 AM Imitrex, 6mg [facility]#: 9587-2874-35 Reviewed 08/19/2012 12:00 AM Norflex, Up to 60 Mg [facility]#95398-449-91 Reviewed 09/02/2012 12:00 AM Bupivicaine, 30 ml [facility]#1179-5696-38 Reviewed 09/02/2012 12:00 AM INJECT TRIGGER POINTS 3/> Reviewed 09/02/2012 12:00 AM Imitrex 6mg [place] #21278-050-04 Reviewed 09/02/2012 12:00 AM Norflex, Up to 60 Mg [facility]#07527-223-79 Reviewed 09/02/2012 12:00 AM Imitrex, 6mg ND#: 5913-6185-96 Reviewed 09/16/2012 12:00 AM THER/PROPH/DIAG INJ SC/IM Reviewed 09/16/2012 12:00 AM Norflex, Up to 60 Mg [facility]#80690-188-49 Reviewed 09/16/2012 12:00 AM INJECT TRIGGER POINTS 3/> Reviewed 09/16/2012 12:00 AM Imitrex 6mg [place] #92786-536-51 Reviewed 09/16/2012 12:00 AM Norflex, Up to 60 Mg [facility]#59354-265-93 Reviewed 11/17/2012 12:00 AM Imitrex 6mg [place] #46645-785-25 Reviewed 11/17/2012 12:00 AM THER/PROPH/DIAG INJ SC/IM Reviewed 11/17/2012 12:00 AM Toradol 30 Mg ND#2636-9823-35 Reviewed 11/17/2012 12:00 AM Bupivicaine, 30 ml [facility]#1149-5711-07 Reviewed 11/17/2012 12:00 AM INJECT TRIGGER POINTS 3/> Reviewed 11/17/2012 12:00 AM Imitrex 6mg [facility] #74801-367-18 Reviewed 11/17/2012 12:00 AM Norflex, Up to 60 Mg ND#34894-506-67 Reviewed 11/17/2012 12:00 AM N BLOCK INJ OCCIPITAL Reviewed 12/01/2012 12:00 AM INJECT TRIGGER POINTS 3/> Reviewed 05/27/2013 12:00 AM THER/PROPH/DIAG INJ SC/IM Reviewed 05/27/2013 12:00 AM Norflex, Up to 60 Mg ND#48187-856-44 Reviewed 06/07/2013 12:00 AM INJECT TRIGGER POINTS 3/> Reviewed 06/24/2013 12:00 AM THER/PROPH/DIAG INJ SC/IM Reviewed 06/24/2013 12:00 AM Norflex, Up to 60 Mg ND#47812-014-76 Reviewed 06/24/2013 12:00 AM INJECT TRIGGER POINTS 3/> Reviewed 06/24/2013 12:00 AM N BLOCK INJ OCCIPITAL Reviewed 07/08/2013 12:00 AM INJECT TRIGGER POINTS 3/> Reviewed 07/08/2013 12:00 AM THER/PROPH/DIAG INJ SC/IM Reviewed 07/08/2013 12:00 AM Norflex 30 mg IM [facility]#96125-067-00 Reviewed 07/08/2013 12:00 AM THER/PROPH/DIAG INJ SC/IM Reviewed 07/22/2013 12:00 AM INJECT TRIGGER POINTS 3/> Reviewed 07/22/2013 12:00 AM THER/PROPH/DIAG INJ SC/IM Reviewed 07/22/2013 12:00 AM Norflex 30 mg IM [facility]#78785-282-25 Reviewed 07/22/2013 12:00 AM THER/PROPH/DIAG INJ SC/IM Reviewed 08/03/2013 12:00 AM INJ TRIGGER POINT 1/2 MUSCL Reviewed 08/03/2013 12:00 AM THER/PROPH/DIAG INJ SC/IM Reviewed 08/03/2013 12:00 AM Norflex 30 mg IM [facility]#85393-478-71 Reviewed 08/03/2013 12:00 AM Imitrex, 6mg [facility]#: 1245-1273-62 Reviewed 08/24/2013 12:00 AM INJECT TRIGGER POINTS 3/> Reviewed 08/24/2013 12:00 AM THER/PROPH/DIAG INJ SC/IM Reviewed 08/24/2013 12:00 AM Norflex 30 mg IM [facility]#72404-170-40 Reviewed 09/07/2013 12:00 AM INJECT TRIGGER POINTS 3/> Reviewed 09/07/2013 12:00 AM THER/PROPH/DIAG INJ SC/IM Reviewed 09/07/2013 12:00 AM Norflex 30 mg IM [facility]#24642-408-41 Reviewed 09/21/2013 12:00 AM Botox Toxin Type A, 1 unit [id number] Reviewed 09/21/2013 12:00 AM CHEMODENERV MUSC MIGRAINE Reviewed 09/23/2013 12:00 AM INJECT TRIGGER POINTS 3/> Reviewed 11/08/2013 12:00 AM N BLOCK INJ OCCIPITAL Reviewed 11/08/2013 12:00 AM Kenalog, Per 10 Mg [facility]#3308-8879-84 [facility] Medicare Reviewed 12/21/2013 12:00 AM Botox Toxin Type A, 1 unit [id number] Reviewed 12/21/2013 12:00 AM CHEMODENERV MUSC MIGRAINE Reviewed 03/25/2014 12:00 AM THER/PROPH/DIAG INJ SC/IM Reviewed 03/25/2014 12:00 AM Norflex, Up to 60 Mg [facility]#70373-024-56 Reviewed 05/17/2014 12:00 AM Interventional Pain Consult Reviewed 05/17/2014 12:00 AM Occupational Therapy Consult Reviewed 07/12/2014 12:00 AM DRAIN/INJ JOINT/BURSA W/O US Reviewed 07/12/2014 12:00 AM Kenalog, Per 10 Mg [facility]#6267-9491-94 Reviewed 10/11/2014 12:00 AM Botox Toxin Type A, 1 unit [id number] Reviewed 10/11/2014 12:00 AM CHEMODENERV MUSC MIGRAINE [...] myofascial pain Jan 02 2012 8:20AM Headache Sep 2011 9:14AM Migraine Headache Jan 02 2012 8:20AM [...] pain Dec 01 2012 10:43AM myofascial pain May 27 2013 10:04AM Migraine Headache May 27 2013 8:27AM Fibromyalgia May 27 2013 8:27AM Chronic pain syndrome May 27 2013 8:27AM Depression and anxiety May 27 [...] with status migrainosus Nov 07 2016 9:28AM Chronic migraine without aura, intractable, with status migrainosus Jan 31 2017 9:19AM Payers Insurance Name Company Name Plan Name Plan Number Policy Number Policy Group Number Start Date Medicare Part B Medicare [place] [id number] Saturday, 2011 [facility] [id number] N/A Medicare RHC Medicare RHC [id number] Wednesday, 2011 Medicare Part A Medicare - Lab/Xray [id number] Friday, January 052010 [place] [facility] Medical Assistance Pro [id number] N/A History of Encounters Visit Date Visit Type Provider 01/31/2017 Procedures Israel Alvarez DO 11/07/2016 Procedures Ivelisse LANDAVERDE 08/08/2016 Procedures Ivelisse LANDAVERDE 05/09/2016 Procedures Ivelisse HUNTP 02/08/2016 Procedures Ivelisse LANDAVERDE 11/17/2015 Office visit Ivelisse LANDAVERDE 11/09/2015 Procedures Ivelisse LANDAVERDE 08/10/2015 Procedures Ivelisse LANDAVERDE 04/10/2015 Procedures Ivelisse LANDAVERDE 02/02/2015 Office visit Penny Ayers MD 01/03/2015 Procedures Ivelisse LANDAVERDE 10/11/2014 Procedures Ivelisse LANDAVERDE 08/02/2014 Office visit [...] Penny Ayers MD 07/22/2013 Office visit Ivelisse M. Teo SITE RELIABILITY ENGINEER 07/08/2013 Office visit Ivelisse Eldridge Teo SITE RELIABILITY ENGINEER 06/24/2013 Office visit Ivelisse M. Teo SITE RELIABILITY ENGINEER 06/07/2013 Office visit Ivelisse M. Teo SITE RELIABILITY ENGINEER 05/27/2013 Office visit Penny Ayers MD 12/01/2012 Office visit Ivelisse Chente Teo SITE RELIABILITY ENGINEER 11/17/2012 Office visit Penny Ayers MD 09/16/2012 Office visit Olivia Cisneros BANK RUNNER 09/02/2012 Office visit Olivia Cisneros BANK RUNNER 08/19/2012 Office visit Olivia Cisneros BANK RUNNER 08/06/2012 Office visit Penny Ayers MD 07/15/2012 Office visit Olivia Cisneros BANK RUNNER 07/07/2012 Office visit Penny Ayers MD 07/01/2012 Office visit Olivia Cisneros BANK RUNNER 06/03/2012 Office visit Olivia Cisneros BANK RUNNER 05/21/2012 Office visit Penny Ayers MD 05/06/2012 Office visit Olivia Cisneros BANK RUNNER 04/14/2012 Office visit Olivia Cisneros BANK RUNNER 03/26/2012 Office visit Olivia Cisneros BANK RUNNER 03/17/2012 Office visit Penny Ayers MD 03/03/2012 Office visit Olivia Cisneros BANK RUNNER 02/06/2012 Office visit Penny Ayers MD 01/21/2012 [...]
--- NOTE | 2017-02-17 13:45 | ED Cardiac General ---
History of Present Illness General Chief Complaint: Cardiac/General Problems Stated Complaint: INCREASED HEART RATE Nursing Triage Note: PT REPORTS PALPITATIONS X 2 DAYS. SHE HAS HX OF AFIB AND REPORTS TAKING MEDICATIONS PRESCRIBED. Source: patient Exam Limitations: no limitations History of Present Illness Time seen by provider: 13:45 Initial Comments 61-year-old female patient presents to the emergency department with complaints of palpitations 2 days. Patient does have a history of atrial fibrillation. Nara reportedly has been taking her medication as directed and has not missed any doses. Patient was seen by Dr. Verde and Nishant Mondragon APRN last week. Patient was seen in the emergency department at [facility] by this examiner on 02/09/17 for multiple falls and head injury. Patient again comes to the ED without wearing oxygen. Patient states "I left the house too fast and forgot to grab it." Patient did have an outpatient CT head with and without contrast as well as a CT abdomen/pelvis on 02/11 which were both negative for acute findings. Patient has had a CTA head on 12/26/16 which was negative. 12/17/16 patient had an aortic and peripheral catheterization by Dr. Verde with mild bilateral peripheral artery disease without obstruction and on 06/27/16 had a cardiac catheterization showing minor CAD with the ventricular ejection fraction of 65 percent. Patient has chronic SOA, LIU, chest pain, and fatigue which are all similar to usual symptoms. Patient denies any further falls since being seen on 02/09/17. Nara has had 250 encounters at [facility] since and the 5th encounter since 02/09/17. Patient states she contacted Dr. Verde's office and was told to come to the emergency department by nursing staff. Timing/Duration: intermittent, other (2 day onset) Activities at Onset: none Modifying Factors: worse with other (patient denies modifying factors) NTG SL CRACKLING PRESS OPERATOR: No ASA po CRACKLING PRESS OPERATOR: Yes Allergies and Home Medications Allergies Coded Allergies: bacitracin (Verified Allergy, Intermediate, "I BREAK OUT IN A RASH ALL OVER.", 08/26/16) neomycin (Verified Allergy, Intermediate, "I BREAK OUT IN A RASH ALL OVER. ", 08/26/16) polymyxin B (Verified Allergy, Intermediate, "I BREAK OUT IN A RASH ALL OVER.", 08/26/16) Penicillins (Verified Allergy, Unknown, NOT SURE KIND REACTION, 08/26/16) ibuprofen (Unverified Allergy, Unknown, 08/26/16) Home Medications Albuterol Sulfate 2.5 Mg/3 Ml Vial.neb, 2.5 MG NEB Q6H PRN for SHORTNESS OF BREATH, (Reported) Albuterol Sulfate 1 Puff Puff, 2 PUFF IH Q4H PRN for SHORTNESS OF BREATH, ( Reported) 1 PUFF = 90 MCG Albuterol Sulfate 2.5 Mg/3 Ml Vial.neb, 2.5 MG IH Q4H PRN for WHEEZING, #25 Ref 0 Prescribed by: SUZI THOMAS on 12/22/16 1347 Alendronate Sodium 70 Mg Tablet, 70 MG PO Sa, (Reported) Alprazolam 0.5 Mg Tablet, 0.5 MG PO TID PRN for ANXIETY, (Reported) Apixaban 5 Mg Tablet, 5 MG PO BID, (Reported) Aripiprazole 5 Mg Tablet, 5 MG PO DAILY, (Reported) Aripiprazole 20 Mg Tablet, 20 MG PO DAILY, (Reported) TAKES ALONG WITH 5MG TABLET Azithromycin 250 Mg Tablet, 250 MG PO UD, #6 Ref 0 TAKE 2 TABLETS TODAY, THEN TAKE 1 TABLET DAILY FOR 4 MORE DAYS Prescribed by: SUZI THOMAS on 12/22/16 1341 Baclofen 10 Mg Tablet, 10 MG PO BID, (Reported) Baclofen 10 Mg Tablet, 10 MG PO BID, (Reported) Benzonatate 100 Mg Capsule, 1-2 CAP PO Q8H PRN for COUGH, #30 Ref 0 Prescribed by: SUZI THOMAS on 12/22/16 1341 Budesonide/Formoterol Fumarate 10.2 Gm Hfa.aer.ad, 2 PUFF IH BID, (Reported) Cetirizine HCl 10 Mg Tablet, 10 MG PO DAILY, (Reported) Cholecalciferol (Vitamin D3) 5,000 Unit Capsule, 5,000 UNIT PO WEEK, (Reported) Clonazepam 1 Mg Tablet, 1 MG PO HS, (Reported) Colesevelam HCl 625 Mg Tablet, 625 MG PO BID, (Reported) Diltiazem HCl 240 Mg Cap.er.deg, 240 MG PO DAILY, (Reported) Diphenoxylate HCl/Atropine 1 Each Tablet, 2 TAB PO TID, (Reported) Donepezil HCl 10 Mg Tablet, 10 MG PO DAILY, (Reported) Doxycycline Hyclate 100 Mg Tablet, 100 MG PO BID, #20 Prescribed by: DAVIDSON RIVERS on 12/26/16 1315 Gabapentin 600 Mg Tablet, 600 MG PO TID, (Reported) Hydralazine HCl 25 Mg Tablet, 25 MG PO TID, (Reported) Hydrocodone/Acetaminophen 1 Each Tablet, 1 EACH PO Q6H PRN for PAIN, #14 Ref 0 Prescribed by: SUZI THOMAS on 12/22/16 1341 Hydroxyzine HCl 25 Mg Tablet, 25 MG PO TID, (Reported) Magnesium Oxide 250 Mg Tablet, 250 MG PO DAILY, (Reported) Memantine HCl 10 Mg Tablet, 10 MG PO HS, (Reported) Metoprolol Succinate 25 Mg Tab.er.24h, 25 MG PO DAILY, (Reported) Mirabegron 50 Mg Tab.er.24h, 50 MG PO DAILY, (Reported) Montelukast Sodium 10 Mg Tablet, 10 MG PO HS, (Reported) Mv,Ca,Min/Iron Fum/FA/Vit K 1 Each Tablet, 1 EACH PO DAILY, (Reported) Nitroglycerin 0.4 Mg Tab.subl, 0.4 MG PO UD PRN for CHEST PAIN, (Reported) Nystatin 100,000 Unit/1 Ml Oral.susp, 100,000 UNIT PO ACHS, #200 Ref 0 Prescribed by: SUZI THOMAS on 02/09/17 1801 Ondansetron 4 Mg Tab.rapdis, 4 MG PO Q6H PRN for NAUSEA/VOMITING-1ST LINE, #14 Ref 0 Prescribed by: FABIO HERRING on 01/08/17 2154 Pantoprazole Sodium 40 Mg Tablet.dr, 40 MG PO BID, (Reported) Prednisone 10 Mg Tab, 10 MG PO DAILY, (Reported) Prednisone 5 Mg Tablet, 5 MG PO UD, #54 Take 10 tablets today then reduce by one tablet daily until gone Prescribed by: SRAVAN BRUCE on 01/14/17 1648 Primidone 250 Mg Tablet, 250 MG PO TID, (Reported) Rifaximin 550 Mg Tablet, 550 MG PO TID, (Reported) Ropinirole HCl 2 Mg Tablet, 2 MG PO HS, (Reported) Simvastatin 20 Mg Tablet, 20 MG PO HS, (Reported) Tiotropium [place] 1 Inh Aerp, 1 CAP IH HS, (Reported) Trazodone HCl 150 Mg Tablet, 150 MG PO HS, (Reported) Trospium Chloride 20 Mg Tablet, 20 MG PO TID, (Reported) Vortioxetine Hydrobromide 20 Mg Tablet, 20 MG PO DAILY, (Reported) Zolpidem Tartrate 5 Mg Tablet, 5 MG PO HS, (Reported) Review of Systems Constitutional: No chills, No diaphoresis, No fever, No malaise EENTM: No Symptoms Reported Respiratory: See HPI, Shortness of Air (chronic shortness of air that is similar to usual symptoms.), SOA With Exertion (chronic dyspnea on exertion which is similar to usual symptoms.) Cardiovascular: See HPI, Denies Chest Pain (patient has chronic chest pain which is similar to usual symptoms.), Denies Edema, Denies Lightheadedness, Palpitations, Denies Syncope Gastrointestinal: Denies Abdomen Distended, Denies Abdominal Pain, Denies Constipated, Denies Diarrhea, Denies Nausea, Denies Vomiting Genitourinary: No Symptoms Reported Musculoskeletal: no symptoms reported Skin: no symptoms reported Psychiatric/Neurological: No Symptoms Reported All Other Systems Reviewed Negative Unless Noted: Yes (Negative excepted noted.) Past Uqzagyz-Gzmhbb-Okwyez Hx Patient Social History Alcohol Use: Denies Use Recreational Drug Use: No Smoking Status: Current Everyday Smoker Type Used: Cigarettes Former Smoker, Quit: Dec 05, 2016 2nd Hand Smoke Exposure: Yes Recent Foreign Travel: No Contact w/Someone Who Travel: No Recent Infectious Disease Expo: No Recent Hopitalizations: No Physical Abuse: No Sexual Abuse: No Immunizations Up To Date Tetanus Booster (TDap): Unknown Date of Pneumonia Vaccine: Nov 11, 2016 Date of Influenza Vaccine: Dec 07, 2015 Seasonal Allergies Seasonal Allergies: Yes Surgeries History of Surgeries: Yes (NECK) Surgeries: Appendectomy, Bladder Surgery, Gallbladder, Orthopedic, Pancreatic Respiratory History of Respiratory Disorde: Yes (OXYGEN AT HS) Respiratory Disorders: Asthma, COPD, Emphysema Cardiovascular History of Cardiac Disorders: Yes Cardiac Disorders: Atrial Fibrillation, High Cholesterol, Hypotension, Irregular Heartbeat, Palpitations Neurological History of Neurological Disord: Yes (PARESTHESIAS OF BILAT LOWER EXT DUE TO FORAMINAL STENOSIS) Neurological Disorders: Headaches /Migraines, Neuropathy 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 System Hx 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 Disorders: No Sexually Transmitted Disease: No HIV/AIDS: No 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 Disorders: Denies Genitourinary Genitourinary Disorders: UTI-Chronic Gastrointestinal History of Gastrointestinal Di: Yes (FREQ DIARRHEA) Gastrointestinal Disorders: Gastroesophageal Reflux, Ulcer Musculoskeletal History of Musculoskeletal Dis: Yes (CHRONIC NECK AND BACK PAIN, CHRONIC HIP PAIN) Musculoskeletal Disorders: Degenerate Disk Disease, Arthritis, Fibromyalgia, Chronic Back Pain Endocrine History of Endocrine Disorders: Yes (DIET CONTROLLED, THYROID NODULES) Endocrine Disorders: Diabetes, Non-Insulin dep HEENT Loss of Vision: Bilateral Hearing Impairment: Denies Cancer History of Cancer: No Psychosocial History of Psychiatric Problem: Yes (ATTEMPTED SUICIDE 26 YRS AGO) Behavioral Health Disorders: Anxiety, Suicide Attempts, Depression Suicide Risk Score: 0 Integumentary History of Skin or Integumenta: Yes Skin/Integumentary Disorders: Psoriasis Blood Transfusions History of Blood Disorders: No Adverse Reaction to a Blood Tr: No Reviewed Nursing Assessment Reviewed/Agree w Nursing PMH: Yes Family Medical History Significant Family History: No Pertinent Family Hx Family Medial History: Cardiovascular disease G8 BROTHER (TRIPLE BYPASS) Diabetes mellitus 19 MOTHER FH: COPD (chronic obstructive pulmonary disease) 19 MOTHER FH: breast cancer 19 MOTHER FHx: brain cancer 19 FATHER Physical Exam Vital Signs Vital Sign - Last 12Hours 02/17/17 13:10 Temp 98.9 Pulse 98 Resp 25 B/P (MAP) 129/86 Pulse Ox 96 O2 Delivery Room Air Capillary Refill : Less Than 3 Seconds General Appearance: No Apparent Distress, WD/WN, Other (patient noted to be ambulating around the waiting room and to the exam room without difficulty. While in the exam room patient stares at the monitor and repeats "see it went up to 98".) HEENT: PERRL/EOMI, Pharynx Normal Neck: Normal Inspection, Supple Respiratory: No Accessory Muscle Use, No Respiratory Distress, Crackles Cardiovascular: Regular Rate, Rhythm (HR 90-98 at the time of exam.), No Edema , No Gallop, No Murmur, Normal Peripheral Pulses Gastrointestinal: Normal Bowel Sounds, Non Tender, Soft Extremity: Normal Capillary Refill, No Pedal Edema Neurologic/Psychiatric: Alert, Oriented x3, Other (flat affect. ) Skin: Normal Color, Warm/Dry Progress/Results/Core Measures Results/Orders My Orders Orders - SUZI THOMAS Ekg Tracing (02/17/17 13:21) O2 (02/17/17 13:21) Monitor-Rhythm Ecg Trace Only (02/17/17 13:21) Chest 1 View, Ap/Pa Only (02/17/17 13:21) Vital Signs/I&O Vital Sign - Last 12Hours 02/17/17 13:10 Temp 98.9 Pulse 98 Resp 25 B/P (MAP) 129/86 Pulse Ox 96 O2 Delivery Room Air Blood Pressure Mean: 100 ECG Initial ECG Impression Date: Feb 17, 2017 Initial ECG Impression Time: 13:44 Initial ECG Rate: 90 Initial ECG Comparisson: Unchanged Comment Sinus rhythm with multiple atrial premature complexes. No arrhythmia or STEMI noted. ECG reviewed with Dr. Herring. Diagnostic Imaging Diagonstic Imaging: Xray Plain Films/CT/US/NM/MRI: chest Comments CHEST 1 VIEW, AP/PA ONLY Portable upright radiograph of the chest. INDICATION: Palpitations. A-fib. FINDINGS: The lungs are clear. The heart size is normal. No effusion or pneumothorax. The mediastinum and zeinab appear unremarkable. IMPRESSION: Unremarkable exam. Dictated on workstation # [id number] Reviewed: Reviewed by Me (radiology report reviewed by me) Departure Communication (Admissions) Progress Notes 1440 patient case discussed with Joleen Winn APRN at Dr. Verde's office including all history, vital signs, diagnostic study findings, and exam findings. Impression Impression: Primary Impression: Encounter for well adult exam without abnormal findings Disposition: 01 HOME, SELF-CARE Condition: Improved Departure-Patient Inst. Decision time for Depature: 14:53 Referrals: FAHAD CLEMENT MD (PCP) Primary Care Physician SENAIT MONDRAGON (Family) Primary Care Physician JOLEEN WINN ALI MD FACP [facility] Patient Instructions: Heart Healthy Diet Add. Discharge Instructions: All discharge instructions reviewed with patient and/or family. Voiced understanding. Continue usual home medications. Follow-up with Dr. Verde's office as an outpatient, call today for appointment time. Return to the emergency department for worsened symptoms or any other concerns. SUZI THOMAS Feb 17, 2017 13:45
--- OUTSIDE RECORDS SUMMARY | 2017-02-17 14:03 | XMS REPORT ---
Author Author SENAIT DUNLAP [facility] Address [address] [place] [address] Care Team Providers Care Mold Machine Operator Name Role Phone SENAIT DUNLAP Unavailable PROBLEMS Type Condition ICD9-CM Code [id number] Code Onset Dates Condition Status SNOMED Code Problem Essential tremor G25.0 Active 79234731 Problem Gastroparesis K31.84 Active 638308035 Problem Hyperlipidemia E78.5 Active 13970731 Problem Osteoporosis M81.0 Active 40350848 Problem Osteopenia M85.80 Active 297253960 Problem COPD (chronic obstructive pulmonary disease) J44.9 Active 42951199 Problem Screening breast examination Z12.39 Active 152863276 Problem Coronary artery disease involving [place] coronary artery of [place] 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 I25.118 Active 5752416739768 Problem Cigarette nicotine dependence without complication F17.210 Active 29626087 Problem Arthritis M19.90 Active 4966663 Problem Vascular dementia without behavioral disturbance F01.50 Active 76759559372671237 Problem Gastroesophageal reflux disease, esophagitis presence not specified K21.9 Active 846948781 Problem Migraine without aura and with status migrainosus, not intractable G43.001 Active 075411034 Problem Colon polyp K63.5 Active 99167186 Problem History of common bile duct surgery Z98.89 Active 415048548 Problem Barretts esophagus K22.70 Active 479363075 Problem Xeroderma Q80.9 Active 36980121 Problem Dementia without behavioral disturbance, unspecified dementia type F03.90 Active 92930256 Problem Migraine without aura and without status migrainosus, not intractable G43.009 Active 433570977 Problem Unspecified psychosis F29 Active 31355650 Problem Chronic pain syndrome G89.4 Active 887904416 Problem Generalized anxiety disorder F41.1 Active 705418683 Problem Cervicalgia M54.2 Active 5341685969976 Problem Paroxysmal atrial fibrillation I48.0 Active 625836778 Problem 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 Active 27668586 Problem Postmenopausal Z78.0 Active 51372276 Problem Bilateral low back pain without sciatica M54.5 Active 401328559 Problem Major depressive disorder, recurrent episode, moderate F33.1 Active 648435212 ALLERGIES Substance Reaction Event Type Date Status Penicillin V Potassium rash Drug Allergy August, Active Neosporin rash Drug Allergy August, Active Ibuprofen rash Drug Allergy August, Active Glipizide hives, nausea Drug Allergy August, Active SOCIAL HISTORY Never Assessed PLAN OF CARE VITAL SIGNS Height 64 in 2016-08-17 Weight 155.6 lbs 2016-08-17 Temperature 98.4 degrees Fahrenheit 2016-08-17 Heart Rate 64 bpm 2016-08-17 Respiratory Rate 20 2016-08-17 BMI 26.71 kg/m2 2016-08-17 Blood pressure systolic 98 mmHg 2016-08-17 Blood pressure diastolic 58 mmHg 2016-08-17 MEDICATIONS Medication Instructions Dosage Frequency Start Date End Date Duration Status Welchol 3.75 GM Orally Once a day 1 packet mixed with water with a meal 24h Active Omeprazole 40 MG Orally Once a day 1 capsule 24h Active Donepezil Hydrochloride Active Nitroglycerin 0.4 MG Active Baclofen 10 mg Orally 2 times a day 1 tablet with food or milk 12h May, 30 day(s) Active Oxybutynin Chloride ER 10 MG Orally Once a day 1 tablet 24h Active Namenda 10 MG TAKE 1 TABLET ONE TIME DAILY 90 Active Symbicort 160-4.5 MCG/ACT INHALE 2 PUFFS TWICE DAILY, IN THE MORNING AND IN THE EVENING 90 Active Zofran ODT 4 MG Orally every 4 hrs 1 tablet on the tongue and allow to dissolve 4h Jul, 1 days Active Aricept 10 MG TAKE 1 TABLET ONE TIME DAILY 90 Active Lomotil 2.5-0.025 mg Orally Four times a day TWO TABLETS 6h 30 Active Simvastatin 20mg Orally Once a day 1 tablet in the evening 24h Active Ambien 5 MG Orally Once a day 1 tablet at bedtime 24h Jul, 30 days Active Abilify 20 MG Orally Once a day 1 tablet 24h Jul, 30 day(s) Active Trintellix 20 MG Orally Once a day 1 tablet 24h Dec, 30 days Active Singulair 10 MG Orally Once a day take 1 tablet (10 mg) by oral route once daily in the evening 24h Oct, Active Xanax 0.5 MG Orally Three times a day 1 tablet 8h 20 Mar, 2016 30 days Active Fluticasone Propionate 50 MCG/ACT Nasally 2 times a day 2 sprays in each nostril 12h Active Oxygen 5 inhalation all the time Active Primidone 250mg Orally Three times a day 1 tablet 8h Active Eliquis 5 MG Orally 2 times a day 12h Active Reglan 5 mg Orally 4 times a day 1 tablet 6h 30 days Active Toprol XL 100 MG Orally Once a day 1 tablet 24h Active Trazodone HCl 150 MG Orally Once a day 1 tablet at bedtime as needed 24h Dec, 30 days Active Gabapentin 600 MG TAKE 1 TABLET THREE TIMES DAILY (CHANGE IN DIRECTIONS) 90 Active Tiotropium [place] Monohydrate 18 MCG Inhalation Once a day 1 capsule 24h Active Topamax 25 MG Orally Twice a day 1 AM, 2 hs 12h Active Cyclobenzaprine HCl 10 Orally Once a day 2 tablet 24h 30 Active Alendronate Sodium 70 MG TAKE 1 TABLET EVERY WEEK 84 Active Albuterol Sulfate 2.5 mg /3 mL (0.083 %) 1 Each by Inhalation route every 4 hours for cough and wheeze PRN for wheezing or cough Jun, Active Ventolin HFA 108 (90 Base) MCG/ACT INHALE 2 PUFFS EVERY 4 HOURS NEEDED 16 Active Trospium Chloride 20 MG Orally Once a day 1 tablet at bedtime on an empty stomach 24h Active Xolair 150 mg inject 1.2 milliliters (150 mg) by subcutaneous route every 4 weeks Sep, Active Benefiber - Active Ropinirole HCl 2 MG TAKE 1 TABLET ONE TIME DAILY AT BEDTIME 90 Active Naproxen 500 MG Orally every 12 hrs 1 tablet as needed 12h Active Cetirizine HCl 10 MG Orally Once a day 1 tablet as needed 24h Active HydrOXYzine HCl 25 MG Orally three times a day 1 tablet as needed 8h 30 days Active RESULTS Name Result Date Reference Range UA LONG DIP (IN HOUSE) 2016-08-17 Lot # [id number] Exp date 2017 04 30 Clarity clear Color yellow Odor no GLU negative TRUMAN negative KET negative SG 1.010 BLO 1+ pH 5.5 Protein Negative URO 0.2 NIT Negative GISELLE trace Lot # [id number] Exp date 2017 05 PROCEDURES Procedure Date Ordered Result Body Site URINALYSIS, AUTO, W/O SCOPE August 17, 2016 [facility] VISIT ESTABLISHED PATIENT August 17, 2016 IMMUNIZATIONS No Known Immunizations MEDICAL [...]
--- OUTSIDE RECORDS SUMMARY | 2017-02-17 14:10 | XMS REPORT ---
Author Author FAHAD CLEMENT [facility] Address [address] [place] [address] Care Team Providers Care Probation Worker Name Role Phone FAHAD CLEMENT Unavailable PROBLEMS Type Condition ICD9-CM Code TOF25-DR Code Onset Dates Condition Status SNOMED Code Problem Essential tremor G25.0 Active 15581221 Problem Gastroparesis K31.84 Active 545391949 Problem Hyperlipidemia E78.5 Active 01806314 Problem Osteoporosis M81.0 Active 23408842 Problem Osteopenia M85.80 Active 882847412 Problem COPD (chronic obstructive pulmonary disease) J44.9 Active 38497484 Problem Screening breast examination Z12.39 Active 961702160 Problem Coronary artery disease involving [place] coronary artery of [place] 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 I25.118 Active 7940558197654 Problem Cigarette nicotine dependence without complication F17.210 Active 53797183 Problem Arthritis M19.90 Active 6133120 Problem Vascular dementia without behavioral disturbance F01.50 Active 39217150587530160 Problem Gastroesophageal reflux disease, esophagitis presence not specified K21.9 Active 431965065 Problem Migraine without aura and with status migrainosus, not intractable G43.001 Active 313403987 Problem Colon polyp K63.5 Active 72684373 Problem History of common bile duct surgery Z98.89 Active 511431621 Problem Barretts esophagus K22.70 Active 101904905 Problem Xeroderma Q80.9 Active 51205533 Problem Dementia without behavioral disturbance, unspecified dementia type F03.90 Active 61312108 Problem Migraine without aura and without status migrainosus, not intractable G43.009 Active 662889610 Problem Unspecified psychosis F29 Active 06666883 Problem Chronic pain syndrome G89.4 Active 487861817 Problem Generalized anxiety disorder F41.1 Active 996952048 Problem Cervicalgia M54.2 Active 3860792741335 Problem Paroxysmal atrial fibrillation I48.0 Active 795995336 Problem 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
--- OUTSIDE RECORDS SUMMARY | 2017-02-17 14:13 | XMS REPORT ---
Author Author FAHAD CLEMENT [facility] Address [address] [place] [address] Care Team Providers Care Physician Vice President Name Role Phone FAHAD CLEMENT Unavailable PROBLEMS Type Condition ICD9-CM Code [id number] Code Onset Dates Condition Status SNOMED Code Problem Essential tremor G25.0 Active 54370679 Problem Gastroparesis K31.84 Active 137421157 Problem Hyperlipidemia E78.5 Active 64372516 Problem Osteoporosis M81.0 Active 68233473 Problem COPD (chronic obstructive pulmonary disease) J44.9 Active 15480457 Problem Screening breast examination Z12.39 Active 633708094 Problem Coronary artery disease involving [place] coronary artery of [place] 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 I25.118 Active 6913547926095 Problem Cigarette nicotine dependence without complication F17.210 Active 40349706 Problem Barretts esophagus K22.70 Active 488151938 Problem Vascular dementia without behavioral disturbance F01.50 Active 49362801751348199 Problem Dementia without behavioral disturbance, unspecified dementia type F03.90 Active 15374071 Problem Arthritis M19.90 Active 2988806 Problem Postconcussion syndrome F07.81 Active 26891312 Problem Gastroesophageal reflux disease, esophagitis presence not specified K21.9 Active 021980065 Problem Cervicalgia M54.2 Active 4844656853262 Problem Colon polyp K63.5 Active 33693114 Problem History of common bile duct surgery Z98.89 Active 570581752 Problem Unspecified psychosis F29 Active 29132023 Problem Xeroderma Q80.9 Active 36123313 Problem Migraine without aura and with status migrainosus, not intractable G43.001 Active 034276347 Problem Migraine without aura and without status migrainosus, not intractable G43.009 Active 382106768 Problem Generalized anxiety disorder F41.1 Active 579635579 Problem Bilateral low back pain without sciatica M54.5 Active 391979003 Problem Paroxysmal atrial fibrillation I48.0 Active 597700565 Problem Chronic pain syndrome G89.4 Active 646050229 Problem Postmenopausal Z78.0 Active 66101644 Problem Osteopenia M85.80 Active 104995993 Problem Major depressive disorder, recurrent episode, moderate F33.1 Active 807144385 Problem 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
--- NOTE | 2017-02-17 14:16 | Diagnostic Imaging Report ---
Portable upright radiograph of the chest. INDICATION: Palpitations. A-fib. FINDINGS: The lungs are clear. The heart size is normal. No effusion or pneumothorax. The mediastinum and zeinab appear unremarkable. IMPRESSION: Unremarkable exam. Dictated by: Dictated on workstation # [id number]
--- OUTSIDE RECORDS SUMMARY | 2017-02-17 14:21 | XMS REPORT ---
Author Author FAHAD CLEMENT [facility] Address [address] [place] [address] Care Team Providers Care Speedboat Operator Name Role Phone FAHAD CLEMENT Unavailable PROBLEMS Type Condition ICD9-CM Code [id number] Code Onset Dates Condition Status SNOMED Code Problem Essential tremor G25.0 Active 42260582 Problem Gastroparesis K31.84 Active 661524001 Problem Hyperlipidemia E78.5 Active 15378050 Problem Osteoporosis M81.0 Active 58386270 Problem COPD (chronic obstructive pulmonary disease) J44.9 Active 03383668 Problem Screening breast examination Z12.39 Active 849805357 Problem Coronary artery disease involving [place] coronary artery of [place] 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 I25.118 Active 2984095788562 Problem Cigarette nicotine dependence without complication F17.210 Active 00332148 Problem Barretts esophagus K22.70 Active 343992308 Problem Vascular dementia without behavioral disturbance F01.50 Active 44681036380397259 Problem Dementia without behavioral disturbance, unspecified dementia type F03.90 Active 46481813 Problem Arthritis M19.90 Active 9611238 Problem Postconcussion syndrome F07.81 Active 88921048 Problem Gastroesophageal reflux disease, esophagitis presence not specified K21.9 Active 697854701 Problem Cervicalgia M54.2 Active 6310427326577 Problem Colon polyp K63.5 Active 51724393 Problem History of common bile duct surgery Z98.89 Active 210495448 Problem Unspecified psychosis F29 Active 12979223 Problem Xeroderma Q80.9 Active 75223140 Problem Migraine without aura and with status migrainosus, not intractable G43.001 Active 017041091 Problem Migraine without aura and without status migrainosus, not intractable G43.009 Active 149958321 Problem Generalized anxiety disorder F41.1 Active 032490304 Problem Bilateral low back pain without sciatica M54.5 Active 255169672 Problem Paroxysmal atrial fibrillation I48.0 Active 881985551 Problem Chronic pain syndrome G89.4 Active 674620627 Problem Postmenopausal Z78.0 Active 34345599 Problem Osteopenia M85.80 Active 030857891 Problem Major depressive disorder, recurrent episode, moderate F33.1 Active 472181488 Problem 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
== END 2017-02-17 15:15 | disposition home or self-care (01) ==
LOC: EDUNIT# 12:38 → ER 12:40
DX: R00.2 Palpitations (principal); J43.9 Emphysema, unspecified; I48.91 Unspecified atrial fibrillation; E78.00 Pure hypercholesterolemia, unspecified; G43.909 Migraine, unspecified, not intractable, without status migrainosus; K21.9 Gastro-esophageal reflux disease without esophagitis; M19.90 Unspecified osteoarthritis, unspecified site; E11.40 Type 2 diabetes mellitus with diabetic neuropathy, unspecified; F41.9 Anxiety disorder, unspecified; F32.9 Major depressive disorder, single episode, unspecified; Z91.5 Personal history of self-harm; Z80.3 Family history of malignant neoplasm of breast; Z80.8 Family history of malignant neoplasm of other organs or systems; Z82.49 Family history of ischemic heart disease and other diseases of the circulatory system; Z87.19 Personal history of other diseases of the digestive system; Z79.01 Long term (current) use of anticoagulants; Z87.891 Personal history of nicotine dependence; Z90.49 Acquired absence of other specified parts of digestive tract
CPT/HCPCS: 71010; 93005; 93041

== ENCOUNTER 2017-02-20 05:38 | Outpatient (CLI) | payer MEDICARE, MEDICAID ==
[~2017-02-20] VITALS: Ht 162.6 cm; Wt 73.9 kg
[~2017-02-20 05:38] MED LIST changes: -METO-270 PO; +METO-387 PO; +NAPR-1070 PO; -NAPR550T PO
[2017-02-20] MEDS ORDERED: NYST1000 PO (11:14)
[2017-02-20] MEDS ORDERED: COLE3.75 PO (11:14)
[2017-02-20] MEDS ORDERED: CHOL500049 PO (11:14)
[2017-02-20] MEDS ORDERED: OMEP40CA36 PO (11:14)
[2017-02-20] MEDS ORDERED: BACL20TA PO (11:14)
== END 2017-02-20 11:22 ==
LOC: PREOP 05:38
PROVIDERS: ATTEND Surgery
DX: Z12.31 Encounter for screening mammogram for malignant neoplasm of breast (principal); R13.10 Dysphagia, unspecified

== ENCOUNTER 2017-02-26 09:21 | Day surgery (SDC) | payer MEDICARE, MEDICAID ==
[~2017-02-26] VITALS: Ht 162.6 cm; Wt 73.9 kg
[~2017-02-26 09:21] MED LIST changes: +BACL20TA PO; +CHOL500049 PO; +COLE3.75 PO
--- OUTSIDE RECORDS SUMMARY | 2017-02-26 09:26 | XMS REPORT | Continuity of Care Document ---
Author Author [facility] Address Unknown Phone Unavailable Care Team Providers Care Brazer Furnace Name Role Phone [employer] Unavailable Unavailable Problems Medications Allergies, Adverse Reactions, Alerts Immunizations Results Vital Signs Encounters Location Location Details Encounter Type Encounter Number Reason For Visit Attending Provider ADM Date DC Date Status Source [facility] [id number] Outpatient [id number] . LAB [facility] 01/12/2013 Active [facility] OUTPATIENT [id number] DENIS FRANCO 09/23/2016 09/23/2016 Active [facility] SPECIMEN [id number] CELESTINA NOWAK 01/23/2017 Active [facility] OUTPATIENT [id number] CELESTINA NOWAK 01/23/20172016 Active [facility] O CELESTINA NOWAK Active [facility] Procedures Plan of Care Social History Assessment and Plan Family History Value Date Source Advance Directives Order Name Results Value Date Source
--- OUTSIDE RECORDS SUMMARY | 2017-02-26 09:27 | XMS REPORT | Encounter Summary ---
Author Author [facility] Organization [facility] Address Unknown Phone Unavailable Care Team Providers Care Bottom Wheeler Name Role Phone PCP Unavailable Reason for Visit * Reason Comments General Question Encounter Details Date Type Department Care Team Description 12/16/2016 Telephone [facility] Rain Tariq MD General Question Physicians - OBGYN [address] FLO[address] POD [address] [place] [address] [place] [address] OFFICE BLDG [phone] [place] [address] Social History Tobacco Use Types [...]
--- OUTSIDE RECORDS SUMMARY | 2017-02-26 09:27 | XMS REPORT | Encounter Summary ---
Author Author [facility] Organization [facility] Address Unknown Phone Unavailable Care Team Providers Care Sharepoint Manager Name Role Phone PCP Unavailable Reason for Referral * Consult, Test & Treat Status Reason Specialty Diagnoses / Referred By Referred To Procedures Contact Contact No Auth Needed Specialty Urology Diagnoses Aracelis Duval Kerri T, Services Hematuria, MD MONICA John Required unspecified type [address] [place] [address] Phone: * Radiology Services Status Reason Specialty Diagnoses / Referred By Referred To Procedures Contact Contact New Request Radiology Diagnoses Pk Duval Pinelopi, MD unspecified type [address] [place]cedures [place] [address] ABD/PELV [place], [place] [address] Reason for Visit * Reason Comments Chronic Kidney Disease * Consult, Test & Treat Status Reason Specialty Diagnoses / Referred By Referred To Procedures Contact Contact New Request Specialty Nephrology Diagnoses Gilles Ness MD Services Hematuria [address] [place] [address] Encounter Details Date Type Department Care Team Description 01/23/2017 Office Visit [facility] Gilles Ness MD Chronic kidney disease, Physicians - Internal [address] unspecified CKD stage Medicine [place] [address]28 (Primary Dx);Hematuria, 4[place] [address] unspecified type [address] [phone] [place] [address] Alvaro saleem MD [phone] [address] [place] [address] [phone] Social History Tobacco Use Types Packs/Day Years [...] one in 2014 COLONOSCOPY [place] SIGMOIDOSCOPY FLX DX W/COLLJ SPEC BR/WA IF PFRMD N/A 09/26/2015 SIGMOIDOSCOPY DIAGNOSTIC to rule out ulcerative colitis. performed by Edgardo Torres MD at [facility] [place] SIGMOIDOSCOPY FLX W/BIOPSY SINGLE/MULTIPLE 09/26/2015 SIGMOIDOSCOPY BIOPSY [...] TITER Specimen Performing Laboratory Blood MAIN LAB [address] [place] [address] * ANTI-NEUT CYTO AB (ANCA/PANCA) (01/23/2017 11:08 AM) Component Value Ref Range C-ANCA <20,NEGATIVE TITER P-ANCA <20,NEGATIVE TITER Specimen Performing Laboratory Blood MAIN LAB [address] [place] [address] * C4 COMPLEMENT 4 (01/23/2017 11:08 AM) Component Value Ref Range Complemnt C4 48.0 10 - 49 MG/DL Specimen Performing Laboratory Blood MAIN LAB [address] [place] [address] * C3 COMPLEMENT 3 (01/23/2017 11:08 AM) Component Value Ref Range Complemnt C3 127.0 88 - 200 MG/DL Specimen Performing Laboratory Blood MAIN LAB [address] [place] [address] * COMPREHENSIVE METABOLIC PANEL (01/23/2017 11:08 AM) [...] Performing Laboratory Blood [facility] MAIN [facility] [address] [place] [address] * CBC AND DIFF (01/23/2017 11:08 AM) [...] Performing Laboratory Blood [facility] MAIN LAB [address] [place] [address] * PROTEIN/CR RATIO,UR RAN (01/23/2017 10:22 AM) Component Value Ref Range Protein, Random <4 MG/DL Creatinine, Random 22 MG/DL Specimen Performing Laboratory Urine [facility] MAIN LAB [address] [place] [address] * POC URINE DIPSTICK AUTO READ (01/23/2017) Component Value Ref Range Urine Glucose POC norm Urine Bilirubin POC neg Urine Ketone POC neg Urine Specific Micro 1.005 POC Urine Blood POC neg Urine PH POC 8 Urine Protein POC neg Urine Urobilinogen POC norm Urine Nitrite POC neg Urine Leukocytes POC neg Color,UA Turbidity,UA Specimen Performing Laboratory Urine IN CLINIC in this encounter Visit Diagnoses Diagnosis Chronic kidney disease, unspecified CKD stage - Primary Hematuria, unspecified type in this encounter
--- OUTSIDE RECORDS SUMMARY | 2017-02-26 09:27 | XMS REPORT | Encounter Summary ---
Author Author [facility] Organization [facility] Address Unknown Phone Unavailable Care Team Providers Care Log Sorter Name Role Phone PCP Unavailable Reason for Referral * Radiology Services Status Reason Specialty Diagnoses / Referred By Referred To Procedures Contact Contact New Request Radiology Diagnoses Simin Hematuria, MD Alvaro unspecified type [address] [place] [address] [place] ABD/PELV [place], [place] [address] Encounter Details Date Type Department Care Team Description 02/14/2017 Orders Only [facility] Alvaro Duval MD Hematuria, unspecified Physicians - Internal [address] type Medicine [address] [place] [address] [phone] [place] [address] Social History Tobacco Use Types [...]
--- OUTSIDE RECORDS SUMMARY | 2017-02-26 09:27 | XMS REPORT | Encounter Summary ---
Author Author [facility] Organization [facility] Address Unknown Phone Unavailable Care Team Providers Care Field Evidence Technician Name Role Phone PCP Unavailable Encounter Details Date Type Department Care Team Description 01/23/2017 Documentation [facility] Alvaro Duval MD Physicians - Internal [address] [facility] [address]TH [place] [address] [phone] [place] [address] Social History Tobacco Use Types Packs/Day Years Used Date Former Smoker Cigarettes 40 Quit: 05/29/2015 Smokeless Tobacco: Never Used Alcohol Use Drinks/Week oz/Week Comments No 0 Standard 0.0 drinks or equivalent Sex Assigned at Date Recorded Not on file as of this encounter Progress Notes * Miracle Baeza LPN - 01/23/2017 3:06 PM CDT Order for CT scan faxed to [facility] per pt request. Fax # [phone]. in this encounter Plan of Treatment Not on fileas of this encounter Visit Diagnoses Not on filein this encounter
--- OUTSIDE RECORDS SUMMARY | 2017-02-26 09:27 | XMS REPORT | Encounter Summary ---
Author Author [facility] Organization [facility] Address Unknown Phone Unavailable Care Team Providers Care Cops Name Role Phone PCP Unavailable Encounter Details Date Type Department Care Team Description 01/23/2017 [facility] ClinAlvaro Campuzano MD Hematuria, unspecified Encounter [address] [place] [address] [address] [place] [address] [phone] Social History Tobacco Use Types Packs/Day Years [...] TITER Specimen Performing Laboratory Blood MAIN LAB [address] [place] [address] * ANTI-NEUT CYTO AB (ANCA/PANCA) (01/23/2017 11:08 AM) Component Value Ref Range C-ANCA <20,NEGATIVE TITER P-ANCA <20,NEGATIVE TITER Specimen Performing Laboratory Blood MAIN LAB [address] [place] [address] * C4 COMPLEMENT 4 (01/23/2017 11:08 AM) Component Value Ref Range Complemnt C4 48.0 10 - 49 MG/DL Specimen Performing Laboratory Blood MAIN LAB [address] [place] [address] * C3 COMPLEMENT 3 (01/23/2017 11:08 AM) Component Value Ref Range Complemnt C3 127.0 88 - 200 MG/DL Specimen Performing Laboratory Blood MAIN LAB [address] [place] [address] * COMPREHENSIVE METABOLIC PANEL (01/23/2017 11:08 AM) [...] Performing Laboratory Blood [facility] MAIN LAB [address] [place] [address] * CBC AND DIFF (01/23/2017 11:08 AM) [...] Performing Laboratory Blood [facility] MAIN LAB [address] [place] [address] in this encounter Visit Diagnoses Diagnosis Hematuria, unspecified type in this encounter Admitting Diagnoses Diagnosis Hematuria, unspecified in this encounter
--- OUTSIDE RECORDS SUMMARY | 2017-02-26 09:27 | XMS REPORT | Encounter Summary ---
Author Author [facility] Organization [facility] Address Unknown Phone Unavailable Care Team Providers Care Green Meat Packer Name Role Phone PCP Unavailable Reason for Visit * Reason Comments Medication Question Encounter Details Date Type Department Care Team Description 12/02/2016 Telephone [facility] Gilles Ness MD Medication Question Physicians - OBGYN [address] [place] [address] OFFICE BLDG [phone] [place] [address] Social History Tobacco Use Types [...]
--- OUTSIDE RECORDS SUMMARY | 2017-02-26 09:27 | XMS REPORT | Encounter Summary ---
Author Author [facility] Organization [facility] Address Unknown Phone Unavailable Care Team Providers Care Livestock Farmworker Name Role Phone PCP Unavailable Reason for Visit * Reason Comments Medication Refill Encounter Details Date Type Department Care Team Description 12/20/2016 Refill [facility] Gilles Ness MD Physicians - OBGYN [address] [place] [address] 5TH FLOOR POD C [phone] [place] [address] [phone] Social History Tobacco Use Types Packs/Day Years [...]
--- OUTSIDE RECORDS SUMMARY | 2017-02-26 09:27 | XMS REPORT | Clinical Summary ---
Author Author [facility] Organization [facility] Address Unknown Phone Unavailable Care Team Providers Care Care Trainer Name Role Phone PCP Unavailable Source Comments Some departments are not documenting in the electronic medical record. If you do not see the information that you expected, contact Release of Information in the Health Information Management department at [phone] for further assistance in locating additional records.[facility] Allergies Active Allergy Reactions Severity Noted Date Comments Byiir-Tmzfv-Mmmjbbq-Pramo RASH Medium 01/23/2017 xine Ibuprofen 06/09/2009 Current [...] the lungs daily. Shake well before use. Active Problems Problem Noted Date Urge incontinence [...] Alvaro Duval MD Hematuria, unspecified type 01/23/2017 Hospital Alvaro Duval MD Hematuria, unspecified Encounter 01/23/2017 [facility] Alvaro Duval MD Hematuria, unspecified Encounter 01/23/2017 Office Visit Nephrology Gilles Ness MD Chronic kidney disease, Alvaro Duval MD unspecified CKD stage (Primary Dx);Hematuria, unspecified type 01/23/2017 Documentation Nephrology Alvaro Duval MD 12/20/2016 Refill [employer] Recru[employer] Gilles Ness MD 12/16/2016 Telephone [employer] Rain Tariq MD General Question 12/02/2016 Telephone [employer] Gilles Ness MD Medication Question from Last [...] Specimen Performing Laboratory Blood MAIN LAB [address] [place] [address] * CBC AND DIFF (01/23/2017 11:08 AM) [...] K/UL Specimen Performing Laboratory Blood MAIN LAB [address] [place] [address] * C3 COMPLEMENT 3 (01/23/2017 11:08 AM) Component Value Ref Range Complemnt C3 127.0 88 - 200 MG/DL Specimen Performing Laboratory Blood MAIN LAB [address] [place] [address] * C4 COMPLEMENT 4 (01/23/2017 11:08 AM) Component Value Ref Range Complemnt C4 48.0 10 - 49 MG/DL Specimen Performing Laboratory Blood MAIN LAB [address] [place] [address] * ANTI-NUCLEAR ANTIBODY(EVONNE) (01/23/2017 11:08 AM) Component Value Ref Range EVONNE Screen <80 <80 TITER Specimen Performing Laboratory Blood MAIN LAB [address] [place] [address] * COMPREHENSIVE METABOLIC PANEL (01/23/2017 11:08 AM) [...] Performing Laboratory Blood [facility] MAIN LAB [address] [place] [address] * PROTEIN/CR RATIO,UR RAN (01/23/2017 10:22 AM) Component Value Ref Range Protein, Random <4 MG/DL Creatinine, Random 22 MG/DL Specimen Performing Laboratory Urine [facility] MAIN LAB [address] [place] [address] * POC URINE DIPSTICK AUTO READ (01/23/2017) Component Value Ref Range Urine Glucose POC norm Urine Bilirubin POC neg Urine Ketone POC neg Urine Specific [place] 1.005 POC Urine Blood POC neg Urine PH POC 8 Urine Protein POC neg Urine Urobilinogen POC norm Urine Nitrite POC neg Urine Leukocytes POC neg Color,UA Turbidity,UA Specimen Performing Laboratory Urine IN CLINIC from Last 3 Months
--- OUTSIDE RECORDS SUMMARY | 2017-02-26 09:27 | XMS REPORT | Encounter Summary ---
Author Author [facility] Organization [facility] Address Unknown Phone Unavailable Care Team Providers Care Order Checker Packer Processer Name Role Phone PCP Unavailable Encounter Details Date Type Department Care Team Description 01/23/2017 [facility] ClinAlvaro Campuzano MD Hematuria, unspecified Encounter [address] [place] [address] [address] [place] [address] [phone] Social History Tobacco Use Types Packs/Day Years [...] Performing Laboratory Urine [facility] MAIN [facility] [address] [place] [address] in this encounter Visit Diagnoses Diagnosis Hematuria, unspecified type in this encounter Admitting Diagnoses Diagnosis Hematuria, unspecified in this encounter
[2017-02-26 10:10] VITALS: BP 120/72
[2017-02-26] MEDS ORDERED: NS IV 500 ML 500 ML ONE (10:10)
[2017-02-26] MEDS ORDERED: NS IV 500 ML 500 ML IV SCH (10:15)
[2017-02-26] MEDS ORDERED: LIDOCAINE JELLY 2% (XYLOCAINE) 5 ML TUBE MM PRN (10:15)
[2017-02-26] MEDS ORDERED: HURRICAINE EXT TUBE (BENZOCAINE) XX PRN (10:15)
[2017-02-26] MEDS ORDERED: LIDOCAINE JELLY 2% (XYLOCAINE) 5 ML TUBE ONE (10:28)
[2017-02-26] MEDS ORDERED: MIDAZOLAM 2 MG/2 ML (VERSED) VIAL ONE ×5 (10:29→11:17)
[2017-02-26] MEDS ORDERED: HURRICAINE EXT TUBE (BENZOCAINE) ONE (10:30)
[2017-02-26] MEDS ORDERED: fentaNYL INJECTION 100 MCG/2 ML AMP ONE (10:39)
[2017-02-26] MEDS: MIDAZOLAM 2 MG/2 ML (VERSED) VIAL IVP PRN ×5 (11:10→11:24)
[2017-02-26] MEDS: fentaNYL INJECTION 100 MCG/2 ML AMP IVP PRN ×2 (11:11→11:17)
[2017-02-26 12:00] VITALS: BP 106/62
--- NOTE | 2017-02-26 12:00 | Conscious Sedation/ASA ---
Conscious Sedation Pre-Proced Time Reviewed: 10:00 ASA Class: 3 Airway Mallampati Classification: ([place] appropriate class) I. II. III, IV Lungs Heart ASA score ASA 1: a normal healthy patient ASA 2: a patient with a mild systemic disease (mid diabetes, controlled hypertension, obesity ASA 3: a patient with a severe systemic disease that limits activity (angina , COPD, prior Myocardial infarction) ASA 4: a patient with an incapacitating disease that is a constant threat to life (CHF, renal failure) ASA 5: a moribund patient not expected to survive 24 hrs. (ruptured aneurysm) ASA 6: a declared brain patient whose organs are being harvested. For emergent operations, add the letter E after the classification Grade 2 Sedation Plan: Analgesia, Amnesia, Plan communicated to team members, Discussed options with patient/fam, Discussed risks with patient/fam Note The patient is an appropriate candidate to undergo the planned procedure, sedation, and anesthesia. The patient immediately re-assessed prior to indication. PETAR NORMAN MD Feb 26, 2017 12:00 pm
--- NOTE | 2017-02-26 12:01 | Progress Note-Pre Operative ---
Pre-Operative Progress Note H&P Reviewed The H&P was reviewed, patient examined and no changes noted. Date Seen by Provider: Feb 26, 2017 Time Seen by Provider: 10:00 Date H&P Reviewed: Feb 26, 2017 Time H&P Reviewed: 10:00 Pre-Operative Diagnosis: GERD, dysphagia PETAR NORMAN MD Feb 26, 2017 12:01 pm
--- NOTE | 2017-02-26 12:03 | Progress Note-Post Operative ---
Post-Operative Progess Note Surgeon (s)/Swing Manager (s) Surgeon PETAR NORMAN MD Swing Manager: none Pre-Operative Diagnosis GERD, dysphagia Post-Operative Diagnosis reflux esophagitis(Class B), mild distal esophageal stricture, mild-mod gastritis, mild duodenitis. Procedure & Operative Findings Date of Procedure 02/26/17 Procedure Performed/Findings EGD with bx and dilatation. Anesthesia Type CS Estimated Blood Loss Estimated blood loss (mL): minimal Specimens/Packing Specimens Removed GE jxn, antrum PETAR NORMAN MD Feb 26, 2017 12:03 pm
--- NOTE | 2017-02-26 12:05 | Discharge Inst-Surgical ---
D/C Lap Instructions-ESTER Follow Up PRN Activity as tolerated High Fiber Diet 25g or more per day Avoid Alcohol, Caffeine, Spicy [place] and Acid foods. Drink 64 fluid oz or more of fluids per day. Symptoms to Report: Fever over 101 degree F, Nausea/Vomiting If any problems/questions: Contact your physician or go to Emergency Room PETAR NORMAN MD Feb 26, 2017 12:05 pm
[2017-02-26] MEDS ORDERED: morphine INJ 10 MG/ML 1ML (SYR OR VIAL) IV PRN (12:15)
[2017-02-26] MEDS ORDERED: ONDANSETRON 4 MG/2 ML (SDV) Z0FRAN IV PRN (12:15)
[2017-02-26] MEDS ORDERED: ACETAMINOPHEN 325 MG TABLET/CAPLET (TYLENOL) PO PRN (12:15)
[2017-02-26] MEDS ORDERED: HYDROcodone/APAP 5 MG/325 MG (LORTAB) TAB PO PRN (12:15)
[2017-02-26 12:30] VITALS: BP 114/70
[2017-02-26 12:40] VITALS: BP 114/70
--- NOTE | 2017-02-26 18:51 | OPERATIVE REPORT ---
DATE OF SERVICE: 02/26/2017 ATTENDING PRIMARY CARE PHYSICIAN: Dr. Aneudy Petit. PREOPERATIVE DIAGNOSES: Gastroesophageal reflux disease, history of Celaya esophagus, and dysphagia. POSTOPERATIVE DIAGNOSES: Mild distal esophageal stricture, reflux esophagitis class B, no recurrent hiatal hernia, mild to moderate gastritis, and mild duodenitis. PROCEDURE PERFORMED: Esophagogastroduodenoscopy with biopsy and dilatation. SURGEON: Petar Norman MD. ANESTHESIA: Conscious sedation. ESTIMATED BLOOD LOSS: Minimal. FINDINGS: Mild distal esophageal stricture, reflux esophagitis class B, no recurrent hiatal hernia, mild to moderate gastritis, and mild duodenitis. No distal obstructions. DISPOSITION: The patient tolerated the procedure well. INDICATIONS FOR PROCEDURE: The patient is a 61-year-old female, known to us. She has a multitude of medical problems as well as gastrointestinal issues. She then had a history of gastroesophageal reflux disease and peptic ulcer disease as well as a biopsy-proven Celaya esophagus and did undergo a hill gastropexy in 2006. We had seen her in 2011, for recurrence with reflux and dysphagia. Biopsies were negative for Celaya's; however, she was found to have a stricture and underwent a balloon dilatation. 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 She had another EGD performed on 12/19/2016, and we did another dilatation procedure. She continues to have problems with dysphagia and reflux despite medical therapy. Her last dilatation was on 04/23. She does have significant risk factors including [id number]-[id number] smoking history as well as taking a number of medications and caffeinated beverage intake. DESCRIPTION OF PROCEDURE: The patient was brought to the endoscopy suite, laid in the left lateral decubitus position. After adequate IV pain and sedative medications and conscious sedation anesthesia, the mouthpiece was applied. The endoscope was then placed in the mouth visualizing the pharynx and hypopharyngeal region. Vocal cords, epiglottis and vallecula identified and appeared to be normal. The endoscope was then gently intubated in the esophageal opening and esophagus was insufflated. Endoscope was then advanced to the first, second and third portions of the esophagus at the level of the GE junction. A reflux esophagitis class B was identified. There was also a mild distal esophageal stricture. A biopsy was taken of the GE junction with forceps with visualization of good hemostasis. The endoscope was then advanced into the stomach. The endoscope was retroflexed, visualizing an intact previous hill gastropexy. There was a mild to moderate gastritis, no ulcers, polyps or any neoplasms identified. A biopsy was taken from stomach antrum with forceps with visualization of good hemostasis. The endoscope was then advanced through the pylorus into the first and second portions of the duodenum with a mild duodenitis identified; however, no ulcers or any strictures or distal obstruction identified. A biopsy was then again taken of the antrum with forceps for H. pylori. We then proceeded with dilatation of the distal esophageal stricture. A CRE fixed guidewire balloon was placed into the stomach and brought back to the area of the stricture. The balloon was insufflated to 3 atmospheres of pressure or 18 mm with no resistance. We then proceeded to 4.5 atmospheres or 19 mm with minimal resistance. We then proceeded to 6 atmospheres or 20 mm in diameter with mild resistance and left this in place for approximately 60 seconds. The balloon was then desufflated and removed. No mucosal tears or any bleeding identified. The endoscope was then slowly withdrawn taking a second look and suctioning all residual air with no additional findings. The patient tolerated the procedure well. We will again continue with medical management with necessary lifestyle and diet accommodation including avoidance of caffeinated beverages, smoking as well as a small and more frequent meals, avoidance of eating at night as well as head elevation while lying supine. Job ID: [id number] DocumentID: [id number] Dictated Date: 02/26/2017 11:54:04 Lapping Machine Tender Date: 02/26/2017 18:51:14 Dictated By: PETAR NORMAN MD
== END 2017-02-26 12:40 | disposition home or self-care (01) ==
LOC: ENDO 09:21
PROVIDERS: ATTEND Surgery
DX: K21.0 Gastro-esophageal reflux disease with esophagitis (principal); K22.2 Esophageal obstruction; K29.70 Gastritis, unspecified, without bleeding; K29.80 Duodenitis without bleeding; E11.9 Type 2 diabetes mellitus without complications; E03.9 Hypothyroidism, unspecified; J44.9 Chronic obstructive pulmonary disease, unspecified; F32.9 Major depressive disorder, single episode, unspecified; I10 Essential (primary) hypertension; I25.10 Atherosclerotic heart disease of native coronary artery without angina pectoris; J45.909 Unspecified asthma, uncomplicated; F17.210 Nicotine dependence, cigarettes, uncomplicated; Z79.01 Long term (current) use of anticoagulants; Z79.899 Other long term (current) drug therapy

== ENCOUNTER → 2017-03-04 | Outpatient (CLI) | payer MEDICARE, MEDICAID ==
[2017-03-06 07:10] LABS: CALCIUM PARA THYROID HORMONE 9.4 mg/dL (8.5-10.5)
== END ==
LOC: LAB 16:47
PROVIDERS: ATTEND Physician Assistant
DX: M81.0 Age-related osteoporosis without current pathological fracture (principal); R53.83 Other fatigue
CPT/HCPCS: 36415; 82306; 83970

== ENCOUNTER 2017-03-26 12:58 | Outpatient (RCR) | payer MEDICARE, MEDICAID ==
[2017-01-24] MEDS: OMALIZUMAB SUB-Q 150 MG (XOLAIR) VIAL SQ SCH (11:10)
[2017-01-24 11:20] VITALS: BP 120/71
[2017-02-26] MEDS: OMALIZUMAB SUB-Q 150 MG (XOLAIR) VIAL SQ SCH (12:30)
[2017-02-26 12:40] VITALS: BP 118/72
[~2017-03-26] VITALS: Ht 162.6 cm; Wt 69.9 kg
[~2017-03-26 12:58] MED LIST changes: +ACHD5005; +ACHD5005 PO; -HYDR-3812; -HYDR-3812 PO
== END 2017-04-24 | disposition home or self-care (01) ==
LOC: SDC 12:58
PROVIDERS: ATTEND Internal Medicine Pulmonary Disease
DX: J45.50 Severe persistent asthma, uncomplicated (principal)
CPT/HCPCS: 96372

== ENCOUNTER 2017-04-01 10:00 | Outpatient (RCR) | payer MEDICARE, MEDICAID ==
[2017-03-26 13:00] VITALS: BP 105/72
[~2017-04-01] VITALS: Ht 162.6 cm; Wt 69.9 kg
== END 2017-04-07 | disposition home or self-care (01) ==
LOC: PULM 10:00
PROVIDERS: ATTEND Nurse Practitioner Family
DX: J45.909 Unspecified asthma, uncomplicated (principal); J44.9 Chronic obstructive pulmonary disease, unspecified; R06.02 Shortness of breath; F17.201 Nicotine dependence, unspecified, in remission; G47.34 Idiopathic sleep related nonobstructive alveolar hypoventilation; I48.92 Unspecified atrial flutter; R09.02 Hypoxemia

== ENCOUNTER → 2017-04-03 | Outpatient (CLI) | payer MEDICARE, MEDICAID ==
--- NOTE | 2017-04-03 11:33 | Diagnostic Imaging Report ---
PROCEDURE: MRI lumbar spine. TECHNIQUE: Multiplanar, multisequence MRI of the lumbar spine was performed without contrast. INDICATION: Back pain. Comparison made with prior examination 12/09/2013. FINDINGS: The alignment of the lumbar spine is normal. Vertebral body heights are well maintained. No spondylolysis or spondylolisthesis. No fractures are identified. Conus medullaris seen at L1 is normal in appearance. The T12-L1, L1-L2 and L2-L3 discs are normal in height, signal intensity and morphology. At L3-L4, there is some broad-based annular bulging as well as facet disease and thickening of the ligamentum flavum. There is slight effacement of ventral thecal sac with encroachment upon the lateral recess bilaterally. There is also [id number] bilateral neural foramen encroachment. At L4-L5, there is loss of disc height and signal intensity. There is broad-based annular bulging and facet disease and thickening of ligament flavum. There is mild central spinal stenosis with encroachment upon the lateral recess bilaterally. There is moderate bilateral neural foramen encroachment. There is increased T2 signal intensity within the posterior central annulus likely reflecting small annular fissure or tear. The L5-S1 disc is unremarkable. Abdominal aorta is nonaneurysmal. Kidneys are unremarkable. IMPRESSION: Degenerative disc disease at L3-L4, L4-L5 as detailed above. Overall findings are relatively stable compared to prior examination. Dictated by: Dictated on workstation # [id number]
== END ==
LOC: RAD 09:51
PROVIDERS: ATTEND Orthopaedic Surgery
DX: M48.061 Spinal stenosis, lumbar region without neurogenic claudication (principal); M51.26 Other intervertebral disc displacement, lumbar region; M47.816 Spondylosis without myelopathy or radiculopathy, lumbar region; M48.8X6 Other specified spondylopathies, lumbar region; M53.82 Other specified dorsopathies, cervical region; M17.12 Unilateral primary osteoarthritis, left knee
CPT/HCPCS: 72148

== ENCOUNTER → 2017-04-25 | Outpatient (CLI) | payer MEDICARE, MEDICAID ==
[2017-04-25 14:39] LABS: BASOPHILS % (AUTO) 1 % (0-10); EOSINOPHILS # (AUTO) 0.2 10^3/uL (0.0-0.3); EOSINOPHILS % (AUTO) 3 % (0-10); HEMATOCRIT 38 % (35-52); HEMOGLOBIN 13.2 G/DL (11.5-16.0); LYMPHOCYTES # (AUTO) 2.1 X 10^3 (1.0-4.0); LYMPHOCYTES % (AUTO) 29 % (12-44); MEAN CORPUSCULAR HEMOGLOBIN 30 PG (25-34); MEAN CORPUSCULAR HGB CONC 35 G/DL (32-36); MEAN CORPUSCULAR VOLUME 87 FL (80-99); MEAN PLATELET VOLUME 10.4 FL (7.4-10.4); MONOCYTES # (AUTO) 0.9 X 10^3 (0.0-1.0); MONOCYTES % (AUTO) 12 % (0-12); NEUTROPHILS # (AUTO) 4.1 X 10^3 (1.8-7.8); NEUTROPHILS % (AUTO) 56 % (42-75); PLATELET COUNT 222 10^3/uL (130-400); RED BLOOD COUNT 4.35 10^6/uL (4.35-5.85); RED CELL DISTRIBUTION WIDTH 14.1 % (10.0-14.5); WHITE BLOOD COUNT 7.3 10^3/uL (4.3-11.0)
[2017-04-25 15:13] LABS: ALANINE AMINOTRANSFERASE 16 U/L (0-55); ALBUMIN 3.7 GM/DL (3.2-4.5); ALKALINE PHOSPHATASE 97 U/L (40-136); BILIRUBIN,TOTAL 0.3 MG/DL (0.1-1.0); BUN/CREATININE RATIO 7; CALCIUM 9.1 MG/DL (8.5-10.1); CARBON DIOXIDE 22 MMOL/L (21-32); CHLORIDE 99 MMOL/L (98-107); CREATININE SERUM 0.59 MG/DL (0.60-1.30); GFR ESTIMATED > 60; GLUCOSE 89 MG/DL (70-105); MAGNESIUM 1.4 MG/DL (1.8-2.4); SODIUM 132 MMOL/L (135-145); TOTAL PROTEIN 6.5 GM/DL (6.4-8.2)
== END ==
LOC: LAB 13:56
PROVIDERS: ATTEND Internal Medicine Endocrinology, Diabetes & Metabolism
DX: M81.0 Age-related osteoporosis without current pathological fracture (principal); E11.9 Type 2 diabetes mellitus without complications
CPT/HCPCS: 36415; 80053; 82306; 83036; 83735; 83970; 84100; 84155; 84165; 84443; 85025

== ENCOUNTER 2017-05-13 09:07 | Outpatient (RCR) | payer MEDICARE, MEDICAID ==
[~2017-05-13 09:07] MED LIST changes: -CITA20TA7 PO; +CITA20TA9 PO; +HYDR-34 PO; -HYDR-3816 PO; +HYDR-3870 PO; -HYDR-3874 PO
[2017-06-22] MEDS ORDERED: TRAM-42 PO (04:09)
[2017-06-22] MEDS ORDERED: WALKING BOOT (04:13)
[2017-07-11] MEDS ORDERED: OXYB10TA PO (13:34)
[2017-07-11] MEDS ORDERED: ARIP10TA17 PO (15:30)
[2017-07-11] MEDS ORDERED: SERT100T8 PO (15:30)
[2017-07-11] MEDS ORDERED: RANI150T90 PO (15:30)
[2017-07-11] MEDS ORDERED: ESTR42.52 VG (15:30)
[2017-07-11] MEDS ORDERED: FLUT16SP22 NS (15:30)
[2017-07-11] MEDS ORDERED: PREG50CA2 PO (15:30)
[2017-07-11] MEDS ORDERED: MIRT45TA5 PO (15:30)
[2017-07-11] MEDS ORDERED: LAMO25TA PO (15:30)
[2017-07-11] MEDS ORDERED: COLE625T9 PO (15:30)
[2017-07-11] MEDS ORDERED: PRED10TA22 PO (15:30)
[2017-07-11] MEDS ORDERED: SERT50TA9 PO (15:30)
[2017-07-11] MEDS ORDERED: APIX5TAB PO (15:30)
[2017-07-11] MEDS ORDERED: DEXL60CA PO (15:30)
[2017-07-11] MEDS ORDERED: NYST1POW4 TOP (15:30)
[2017-07-11] MEDS ORDERED: CODE118S2 PO (15:30)
[2017-07-11] MEDS ORDERED: CETI10TA20 PO (15:30)
[2017-07-11] MEDS ORDERED: HYDR50TA76 PO (15:30)
[2017-07-11] MEDS ORDERED: BUSP5TAB59 PO (15:30)
[2017-07-11] MEDS ORDERED: ERGO50006 PO (15:30)
[2017-07-11] MEDS ORDERED: RIFA550T PO (15:52)
[2017-07-11] MEDS ORDERED: MUPI22OI2 TP (15:52)
[2017-07-11] MEDS ORDERED: MAGN400T6 PO (15:52)
[2017-07-11] MEDS ORDERED: ONDA4TAB8 SL (15:52)
[2017-07-14] MEDS ORDERED: SUMA100T2 PO (13:40)
[2017-07-14] MEDS ORDERED: OMEP40CA36 PO (13:57)
[2017-07-14] MEDS ORDERED: ALEN70TA47 PO (13:57)
[2017-07-14] MEDS ORDERED: HYDR-3923 PO (13:57)
[2017-07-16] MEDS ORDERED: OXYC-197 PO (07:25)
[2017-09-11] MEDS ORDERED: ACHD5005 PO (11:36)
== END 2017-08-11 | disposition home or self-care (01) ==
LOC: PULM 09:07
PROVIDERS: ATTEND Nurse Practitioner Family
DX: J45.909 Unspecified asthma, uncomplicated (principal); J44.9 Chronic obstructive pulmonary disease, unspecified; R06.02 Shortness of breath; F17.201 Nicotine dependence, unspecified, in remission; G47.34 Idiopathic sleep related nonobstructive alveolar hypoventilation; I48.92 Unspecified atrial flutter; R09.02 Hypoxemia

== ENCOUNTER → 2017-06-02 | Outpatient (CLI) | payer MEDICARE, MEDICAID ==
[~2017-06-02] MED LIST changes: +CITA20TA7 PO; -CITA20TA9 PO
[2017-06-02 13:34] LABS: BUN/CREATININE RATIO 12; CALCIUM 8.7 MG/DL (8.5-10.1); CARBON DIOXIDE 21 MMOL/L (21-32); CHLORIDE 108 MMOL/L (98-107); CREATININE SERUM 0.66 MG/DL (0.60-1.30); GFR ESTIMATED > 60; GLUCOSE 171 MG/DL (70-105); POTASSIUM 3.8 MMOL/L (3.6-5.0); SODIUM 139 MMOL/L (135-145)
== END ==
LOC: LAB 13:03
PROVIDERS: ATTEND Internal Medicine Nephrology
DX: E87.1 Hypo-osmolality and hyponatremia (principal)
CPT/HCPCS: 36415; 80048; 83935; 84300

== ENCOUNTER → 2017-06-11 | Outpatient (CLI) | payer MEDICARE, MEDICAID ==
[2017-06-11 09:31] LABS: BUN/CREATININE RATIO 19; CALCIUM 9.7 MG/DL (8.5-10.1); CARBON DIOXIDE 25 MMOL/L (21-32); CHLORIDE 106 MMOL/L (98-107); CREATININE SERUM 0.69 MG/DL (0.60-1.30); GFR ESTIMATED > 60; GLUCOSE 104 MG/DL (70-105); MAGNESIUM 1.9 MG/DL (1.8-2.4); POTASSIUM 4.2 MMOL/L (3.6-5.0); SODIUM 140 MMOL/L (135-145)
== END ==
LOC: LAB 08:01
PROVIDERS: ATTEND Internal Medicine Endocrinology, Diabetes & Metabolism
DX: M81.0 Age-related osteoporosis without current pathological fracture (principal); E11.9 Type 2 diabetes mellitus without complications
CPT/HCPCS: 36415; 80048; 82306; 83735

== ENCOUNTER 2017-06-15 06:50 | Emergency (ER) | payer MEDICARE, MEDICAID ==
[~2017-06-15] VITALS: Ht 162.6 cm; Wt 68.0 kg
--- NOTE | 2017-06-15 07:55 | Diagnostic Imaging Report ---
INDICATION: Ankle pain. COMPARISON: None available. TECHNIQUE: 3 radiographs of the right ankle dated 06/15/2017. FINDINGS: No acute fracture or dislocation. No destructive osseous process. Talar dome is unremarkable. Ankle mortise is symmetric. No suspicious radiopaque foreign body. IMPRESSION: No acute osseous abnormality. Dictated by: Dictated on workstation # [id number]
--- NOTE | 2017-06-15 08:11 | ED Lower Extremity ---
General Chief Complaint: Lower Extremity Stated Complaint: POSS ANKLE INJ Nursing Triage Note: pt reports around 2100 last night she got out of bed and twisted her r ankle. pt reports no other injury. Nursing Sepsis Screen: No Definite Risk Source: patient Exam Limitations: no limitations History of Present Illness Date Seen by Provider: Jun 15, 2017 Time Seen by Provider: 08:06 Initial Comments The patient is a 61-year-old white female who reports that she had been in her recliner last night and got up to go to bed at about 2100. She rolled her ankle on the right. She has no history of previous troubles. She reports the pain to be excruciating and she can scarcely walk on it. Onset: yesterday Pain/Injury Location: right ankle Method of Injury: twisted Allergies and Home Medications Allergies Coded Allergies: bacitracin (Verified Allergy, Intermediate, "I BREAK OUT IN A RASH ALL OVER.", 08/26/16) neomycin (Verified Allergy, Intermediate, "I BREAK OUT IN A RASH ALL OVER. ", 08/26/16) polymyxin B (Verified Allergy, Intermediate, "I BREAK OUT IN A RASH ALL OVER.", 08/26/16) Penicillins (Verified Allergy, Unknown, NOT SURE KIND REACTION, 08/26/16) ibuprofen (Unverified Allergy, Unknown, 08/26/16) Home Medications Albuterol Sulfate 2.5 Mg/3 Ml Vial.neb, 2.5 MG NEB Q6H PRN for SHORTNESS OF BREATH, (Reported) Albuterol Sulfate 1 Puff Puff, 2 PUFF IH Q4H PRN for SHORTNESS OF BREATH, ( Reported) 1 PUFF = 90 MCG Alendronate Sodium 70 Mg Tablet, 70 MG PO Sa, (Reported) Alprazolam 0.5 Mg Tablet, 0.5 MG PO TID PRN for ANXIETY, (Reported) Apixaban 5 Mg Tablet, 5 MG PO BID, (Reported) Aripiprazole 5 Mg Tablet, 5 MG PO DAILY, (Reported) Aripiprazole 20 Mg Tablet, 20 MG PO DAILY, (Reported) TAKES ALONG WITH 5MG TABLET Baclofen 10 Mg Tablet, 10 MG PO BID, (Reported) Baclofen 20 Mg Tablet, 20 MG PO TID, (Reported) Budesonide/Formoterol Fumarate 10.2 Gm Hfa.aer.ad, 2 PUFF IH BID, (Reported) Cetirizine HCl 10 Mg Tablet, 10 MG PO DAILY, (Reported) Cholecalciferol (Vitamin D3) 50,000 Unit Capsule, 50,000 UNIT PO WEEK, (Reported ) Clonazepam 1 Mg Tablet, 1 MG PO HS, (Reported) Colesevelam HCl 3.75 Gm Powd.pack, 3.75 GM PO DAILY, (Reported) Diltiazem HCl 240 Mg Cap.er.deg, 240 MG PO DAILY, (Reported) Diphenoxylate HCl/Atropine 1 Each Tablet, 2 TAB PO TID, (Reported) Donepezil HCl 10 Mg Tablet, 10 MG PO DAILY, (Reported) Gabapentin 600 Mg Tablet, 600 MG PO TID, (Reported) Hydroxyzine HCl 25 Mg Tablet, 25 MG PO TID, (Reported) Magnesium Oxide 250 Mg Tablet, 250 MG PO DAILY, (Reported) Memantine HCl 10 Mg Tablet, 10 MG PO HS, (Reported) Metoprolol Succinate 25 Mg Tab.er.24h, 25 MG PO DAILY, (Reported) Mirabegron 50 Mg Tab.er.24h, 50 MG PO DAILY, (Reported) Montelukast Sodium 10 Mg Tablet, 10 MG PO HS, (Reported) Mv,Ca,Min/Iron Fum/FA/Vit K 1 Each Tablet, 1 EACH PO DAILY, (Reported) Nitroglycerin 0.4 Mg Tab.subl, 0.4 MG PO UD PRN for CHEST PAIN, (Reported) Nystatin 100,000 Unit/1 Ml Oral.susp, 100,000 UNIT PO ACHS, (Reported) Omeprazole 40 Mg Capsule.dr, 40 MG PO DAILY, (Reported) Pantoprazole Sodium 40 Mg Tablet.dr, 40 MG PO BID, (Reported) Primidone 250 Mg Tablet, 250 MG PO TID, (Reported) Rifaximin 550 Mg Tablet, 550 MG PO TID, (Reported) Ropinirole HCl 2 Mg Tablet, 2 MG PO HS, (Reported) Simvastatin 20 Mg Tablet, 20 MG PO HS, (Reported) Tiotropium Plover 1 Inh Aerp, 1 CAP IH HS, (Reported) Trazodone HCl 150 Mg Tablet, 150 MG PO HS, (Reported) Trospium Chloride 20 Mg Tablet, 20 MG PO DAILY, (Reported) Vortioxetine Hydrobromide 20 Mg Tablet, 20 MG PO DAILY, (Reported) Zolpidem Tartrate 5 Mg Tablet, 5 MG PO HS, (Reported) Patient Home Medication List Home Medication List Reviewed: Yes Constitutional: see HPI EENTM: no symptoms reported Respiratory: cough Cardiovascular: no symptoms reported Gastrointestinal: no symptoms reported Genitourinary: no symptoms reported Musculoskeletal: see HPI Skin: no symptoms reported Psychiatric/Neurological: No Symptoms Reported Past Tavxfhb-Cchacv-Adflmk Hx Patient Social History Alcohol Use: Denies Use Recreational Drug Use: No Smoking Status: Current Everyday Smoker Type Used: Cigarettes Former Smoker, Quit: Dec 05, 2016 2nd Hand Smoke Exposure: Yes Recent Foreign Travel: No Contact w/Someone Who Travel: No Recent Infectious Disease Expo: No Recent Hopitalizations: No Physical Abuse: No Sexual Abuse: No Mistreated: No Fear: No Immunizations Up To Date Tetanus Booster (TDap): Unknown PED Vaccines UTD: No Date of Pneumonia Vaccine: Nov 11, 2016 Date of Influenza Vaccine: Dec 06, 2016 Seasonal Allergies Seasonal Allergies: Yes Surgeries History of Surgeries: Yes (NECK) Surgeries: Appendectomy, Bladder Surgery, Gallbladder, Orthopedic, Pancreatic Respiratory History of Respiratory Disorde: Yes (OXYGEN ALL THE TIME) Respiratory Disorders: Asthma, COPD, Emphysema Cardiovascular History of Cardiac Disorders: Yes Cardiac Disorders: Atrial Fibrillation, High Cholesterol, Hypotension, Irregular Heartbeat, Palpitations Neurological History of Neurological Disord: Yes (PARESTHESIAS OF BILAT LOWER EXT DUE TO FORAMINAL STENOSIS) Neurological Disorders: Headaches /Migraines, Neuropathy 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 System Hx 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 Disorders: No Sexually Transmitted Disease: No HIV/AIDS: No 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 Disorders: Denies Genitourinary Genitourinary Disorders: UTI-Chronic Gastrointestinal History of Gastrointestinal Di: Yes (FREQ DIARRHEA, DYSPHAGIA) Gastrointestinal Disorders: Gastroesophageal Reflux, Ulcer Musculoskeletal History of Musculoskeletal Dis: Yes (CHRONIC NECK AND BACK PAIN, CHRONIC HIP PAIN) Musculoskeletal Disorders: Degenerate Disk Disease, Arthritis, Fibromyalgia, Chronic Back Pain Endocrine History of Endocrine Disorders: Yes (DIET CONTROLLED, THYROID NODULES) Endocrine Disorders: Diabetes, Non-Insulin dep HEENT Loss of Vision: Bilateral Hearing Impairment: Denies Cancer History of Cancer: No Psychosocial History of Psychiatric Problem: Yes (ATTEMPTED SUICIDE 26 YRS AGO) Behavioral Health Disorders: Anxiety, Suicide Attempts, Depression Suicide Risk Score: 0 Integumentary History of Skin or Integumenta: Yes Skin/Integumentary Disorders: Psoriasis Blood Transfusions History of Blood Disorders: No Adverse Reaction to a Blood Tr: No Family Medical History Significant Family History: No Pertinent Family Hx Family Medial History: Cardiovascular disease G8 BROTHER (TRIPLE BYPASS) Diabetes mellitus 19 MOTHER FH: COPD (chronic obstructive pulmonary disease) 19 MOTHER FH: breast cancer 19 MOTHER FHx: brain cancer 19 FATHER Physical Exam Vital Signs Vital Signs - First Documented 06/15/17 07:25 Temp 98.0 Pulse 88 Resp 20 B/P (MAP) 126/79 (95) Pulse Ox 92 Capillary Refill : Less Than 3 Seconds General Appearance: mild distress HEENT: normal ENT inspection Cardiovascular: normal peripheral pulses, regular rate, rhythm, no edema, no gallop, no JVD, no murmur Respiratory: chest non-tender, lungs clear, normal breath sounds, no respiratory distress, no accessory muscle use Gastrointestinal: normal bowel sounds, non tender, soft, no organomegaly, no pulsatile mass 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 She complains of pain to palpation over the distal lateral malleolus and the distribution of the lateral ligament. Progress/Results/Core Measures Results/Orders My Orders Orders - BRYSON RHOADES MD Ankle, Right, 3 Views (06/15/17 07:27) Vital Signs/I&O Vital Sign - Last 12Hours 06/15/17 07:25 Temp 98.0 Pulse 88 Resp 20 B/P (MAP) 126/79 (95) Pulse Ox 92 Blood Pressure Mean: 95 Departure Impression Impression: Primary Impression: right ankle sprain, first degree Disposition: 01 HOME, SELF-CARE Condition: Stable/Unchanged Departure-Patient Inst. Decision time for Depature: 08:09 Referrals: SENAIT DUNLAP (PCP) Primary Care Physician Patient Instructions: Ankle Sprain (DC) Add. Discharge Instructions: All discharge instructions reviewed with patient and/or family. Voiced understanding. Elevate ankle when possible. Ice packs every 2-3 hours while awake. Use boot and you may need to do this for 2-3 weeks. BRYSON RHOADES MD Jun 15, 2017 08:11
[2017-06-15 08:20] VITALS: BP 123/85
--- OUTSIDE RECORDS SUMMARY | 2017-06-15 14:22 | XMS REPORT | Continuity of Care Document ---
Author Author [employer] Organization [facility] Address Unknown Phone Unavailable Care Team Providers Care Security Agent Name Role Phone [employer] Unavailable Unavailable Problems Medications Allergies, Adverse Reactions, Alerts Immunizations Results Vital Signs Encounters Location Location Details Encounter Type Encounter Number Reason For Visit Attending Provider ADM Date DC Date Status Source [facility] [id number] Outpatient [id number] . LAB [facility] 01/12/2013 Active [facility] [id number] DENIS FRANCO 09/23/2016 09/23/2016 Active [facility] SPECIMEN [id number] 01/23/2017 01/23/2017 Active [facility] SPECIMEN [id number] CELESTINA NOWAK 01/23/2017 Active [facility] OUTPATIENT [id number] KEYSHA WHEELER 04/10/20172017 Active [facility] OUTPATIENT [id number] CELESTINA NOWAK 05/15/20172017 Active [facility] SPECIMEN [id number] KEYSHA WHEELER 05/20/20172017 Active [facility] OUTPATIENT [id number] KWAME BRADLEY 05/28/20172017 Active [facility] OUTPATIENT [id number] 06/04/2017 Active [facility] OP SURGERY [id number] KWAME BRADLEY 06/13/20172017 Active [facility] O Active [facility] Procedures Plan of Care Social History Assessment and Plan Family History Advance Directives Functional Status
--- OUTSIDE RECORDS SUMMARY | 2017-06-15 14:23 | XMS REPORT | Encounter Summary ---
Author Author [facility] Organization [facility] Address Unknown Phone Unavailable Care Team Providers Care Director Zone Name Role Phone Apoorva Shane MD Unavailable Edgardo Torres MD Unavailable Amanda Bhandari Unavailable Montana Villasenor MD Unavailable Gilles Ness MD Unavailable Rain Tariq MD Unavailable Harika Hsu MD Unavailable Nayana Mccarty RN Unavailable Unavailable Symone Lee Unavailable Unavailable Sukumar Mondragon APRN PCP Reason for Visit * Auth/Cert Status Reason Specialty Diagnoses / Referred By Referred To Procedures Contact Contact Diagnoses Urinary obstruction unknown P rocedures MS RMVL/REVJ SLING STRESS INCONTINENCE REVISION/REMOVAL VAGINAL SLING Encounter Details Date Type Department Care Team Description 06/13/2017 Anesthesia Main Operating Room Olga Duron MD [address] [facility] [address] [place] [address] MS [address] [place], [place] [id number] Anesthesia Record Procedure Name Responsible Anesthesia Start Time Anesthesia Stop Time Anesthesiologist URETHROLYSIS, INCISION OF Tone Fregoso MD 06/13/1772506/13/17 0900 URETHRAL SLING, CYSTOSCOPY (N/A Vagina ) Date Time Event Comment 719 AN Equip Check 2017 725 Anes Start 725 An Start Data 731 An Induction The patient was reevaluated immediately before moderate or deep sedation use and before anesthesia induction. 0733 An Intubation 0737 Anesthesia Ready 0740 Antibiotic Given 0759 Proc Start 0839 Quick Note 5 ml indigo carmine 0857 An Extubation LMA removed with pt spont breathing, follows commands , Dr. Chris freogso present 0859 an stop data 0859 Handoff to RN I completed my SBAR handoff to the receiving nurse. All questions answered, pt alert with appropriate conversation in PACU 0900 An Stop Meds Name Total midazolam (VERSED) 1 mg/mL injection 2 mg fentaNYL PF (SUBLIMAZE) injection 100 mcg lidocaine (2%) 200 mg/10mL Injection 60 mg syringe propofol (DIPRIVAN) 200 mg/ 20 mL 100 mg injection (VIAL) ondansetron (ZOFRAN) injection 4 mg dexamethasone (DECADRON) 4 mg/mL 4 mg injection phenylephrine (THAIS-SYNEPHRINE) 0.1 mg/mL 600 mcg injection (SYRINGE) ceFAZolin (ANCEF) IVP 2 g 2 g indigotindisulfonate (INDIGO CARMINE) 5 mL injection lactated ringers infusion 1,000 mL * Name O2 N2O Inspired N2O Sevoflurane Inspired Sevoflurane * No blood administrations on file. Type Details Placement Removal Peripheral 06/13/17; 0608; RN; L; Mid; Forearm; 20 06/13/17 0608 by Prabhakar , IV G; No; Vein Light Used; 1 BELINDA Donald Wounds 06/13/17; 0823; Vagina; Surgical 06/13/17 0823 by Rashid, (NOT for Incision; SUTURES, VAGINAL PACKING WITH BELINDA Adkins Pressure ESTRACE CREAM. Injuries) Supraglott 06/13/17; 0733; Ventilated by mask (1); 06/13/17 0733 by Kat, 06/13/17 0857 by Kat, ic Airway LMA; 4 (inserted by ER resident, Dr. Chris Yusuf, ABA Erwin present); 1 insertion attempt; Auscultation, End-tidal CO2; 06/13/17; 0857 Indwelling 06/13/17; 0759; Unit (Comment) (KAT 06/13/17 0759 by Rashid, 06/13/17 1035 by Connie, Urinary MAIN OR); Urology; 16 FR; Regular BELINDA Adkins RN Catheter (Two-way); 06/13/17; 1035 in this encounter Social History Tobacco Use Types Packs/Day Years Used Date Former Smoker Cigarettes 0.25 46 Smokeless Tobacco: Never Used Alcohol Use Drinks/Week oz/Week Comments No 0 Standard 0.0 drinks or equivalent Sex Assigned at Date Recorded Not on file as of this encounter OR Notes * Anesthesia Postprocedure Evaluation - Huang Siddiqui MD - 06/13/2017 10:23 AM DEBEAKER Post-Anesthesia Evaluation Name: Nara Huizar : 1955 Age: 61 y.o. Sex: female Procedure Date: 06/13/2017 Procedure: Procedure(s) with comments: URETHROLYSIS, INCISION OF URETHRAL SLING, CYSTOSCOPY - CASE LENGTH 1.5 HOURS Surgeon: Surgeon(s): Balbina Garcia MD Farrow, Jason, MD Post-Anesthesia Vitals BP: 107/68 (06/13 1015) Temp: 36.4 C (97.5 F) (06/13 1014) Pulse: 89 (06/13 1014) Respirations: 16 PER MINUTE (06/13 1014) SpO2: 94 % (06/13 1014) O2 Delivery: Nasal Cannula (06/13 1014) SpO2 Pulse: 89 (06/13 1015) Height: 160 cm (62.99") (06/14 607) Post Anesthesia Evaluation Note Evaluation location: pre/post Patient participation: recovered; patient participated in evaluation Level of consciousness: alert Pain score: 5 (good control per pt) Pain management: adequate Hydration: normovolemia Temperature: 36.0C - 38.4C Airway patency: adequate Perioperative Events Perioperative events: no Post-op nausea and vomiting: no PONV Postoperative Status Cardiovascular status: hemodynamically stable Respiratory status: spontaneous ventilation and supplemental oxygen (on 3L home O2, pt states breathing feels at baseline) Follow-up needed: none Additional comments: Pt awake and alert, VSS, denies complaints. Ready for discharge at 1023. Perioperative Events Perioperative Event: No Emergency Case Activation: No * Anesthesia Preprocedure Evaluation - Tone Fregoso MD - 06/04/2017 8:02 AM DEBEAKER Formatting of this note may be different from the original. Anesthesia Pre-Procedure Evaluation Name: Nara Huizar : 1955 Age: 61 y.o. Sex: female Procedure Date: 06/13/17714 Procedure: Procedure(s): URETHROLYSIS, INCISION OF URETHRAL SLING, CYSTOSCOPY (N /A ) - CASE LENGTH 1.5 HOURS Physical Assessment Vital Signs (last filed in past 24 hours): BP: 104/56 (06/04 720) Temp: 36.6 C (97.9 F) (06/04 720) Pulse: 73 (06/04 720) Respirations: 14 PER MINUTE (06/04 720) SpO2: 93 % (06/04 720) O2 Delivery: None (Room Air) (06/04 720) Height: 160 cm (63") (06/04 720) Weight: 70.8 kg (156 lb) (06/04 720) Dosing / Dry Weight: 70.8 kg (156 lb) (06/04 720) Patient History Allergies Allergen Reactions Triple Antibiotic [Broxp-Nuarv-Erxiqil-Pramoxine] RASH Ibuprofen Current Medications Medication Directions albuterol (VENTOLIN HFA) 90 mcg/actuation inhaler Inhale 2 puffs by mouth into the lungs daily. Shake well before use. alendronate (FOSAMAX) 70 mg tablet Take 70 mg by mouth every 7 days. ALPRAZolam (XANAX) 1 mg tablet Take 1 mg by mouth as Needed. apixaban (ELIQUIS) 5 mg tab tablet Take 5 mg by mouth twice daily. baclofen (LIORESAL) 20 mg tablet Take 20 mg by mouth three times daily. benztropine (COGENTIN) 0.5 mg tablet Take 0.5 mg by mouth twice daily. budesonide/formoterol (SYMBICORT HFA) 160/4.5 mcg inhalation Inhale by mouth into the lungs. budesonide/formoterol (SYMBICORT) 160/4.5 mcg HFAA inhalation Inhale 2 Puffs by mouth daily. calcium carbonate (OS-DEAN) 1250 mg tablet Take 1,250 mg by mouth daily. cephalexin (KEFLEX) 500 mg capsule Take 500 mg by mouth four times daily. CETIRIZINE HCL (ZYRTEC PO) Take by mouth. CLONAZEPAM PO Take by mouth at bedtime as needed. colesevelam(+) (WELCHOL) 625 mg tablet Take 1,875 mg by mouth twice daily with meals. diltiazem CD (CARDIZEM CD) 240 mg capsule Take 240 mg by mouth daily. diphenoxylate/atropine (LOMOTIL) 2.5/0.025 mg tablet Take 2 tablets by mouth four times daily as needed for Diarrhea. donepezil (ARICEPT) 10 mg tablet Take 10 mg by mouth At Bedtime Daily. doxycycline (VIBRAMYCIN) 100 mg tablet Take 100 mg by mouth twice daily. ergocalciferol (VITAMIN D-2) 50,000 unit capsule Take 1 capsule by mouth every 7 days. Sundays estradiol (ESTRACE) 0.01 % (0.1 mg/g) vaginal cream Insert or Apply to vaginal area every 7 days. FLUTICASONE PROPIONATE (FLONASE NA) Insert into nose as directed. gabapentin (NEURONTIN) 600 mg tablet Take 600 mg by mouth three times daily. hydrOXYzine (ATARAX) 50 mg tablet Take 50 mg by mouth three times daily. lamoTRIgine (LAMICTAL) 25 mg tablet Take 25 mg by mouth three times daily. magnesium oxide (MAG-OX) 400 mg tablet Take 400 mg by mouth daily. memantine,+, (NAMENDA) 10 mg tablet Take 10 mg by mouth daily. metoprolol XL (TOPROL XL) 25 mg extended release tablet Take 25 mg by mouth daily. mirabegron(+) ER (MYRBETRIQ) 50 mg tablet Take 1 tablet by mouth daily for 120 days. Indications: URINARY URGE INCONTINENCE mirtazapine (REMERON) 45 mg tablet Take 45 mg by mouth at bedtime daily. montelukast (SINGULAIR) 10 mg tablet Take 10 mg by mouth at bedtime daily. MULTIVIT WITH CALCIUM,IRON,MIN (WOMEN'S MULTIPLE VITAMINS PO) Take 1 tablet by mouth daily. nitroglycerin (NITROSTAT) 0.[address] 0.4 mg under tongue every 5 minutes as needed for Chest Pain. other medication 1 Dose. 5L/NC home oxygen pantoprazole DR (PROTONIX) 40 mg tablet Take 80 mg by mouth daily. primidone (MYSOLINE) 250 mg tablet Take 250 mg by mouth every 8 hours. rifAXIMin (XIFAXAN) 550 mg tablet Take 550 mg by mouth every 8 hours. ropinirole (REQUIP) 2 mg tablet Take [...] by mouth three times daily before meals. Scheduled Meds:Continuous Infusions: PRN and Respiratory Meds: Review of Systems/Medical History Patient summary reviewed Pertinent labs reviewed PONV Screening: Female gender No history of anesthetic complications No family history of anesthetic complications Airway - negative Pulmonary Current smoker (40+ pyh) Asthma COPD, moderate Pneumonia (2017) Home oxygen use Sleep apnea (never fitted for a mask, but tested positive.) 3-5 L via NC. Saw certified executive chef in Apr and again 05/29/17.; Her most recent a pulmonary function tests and 6 minutes walk test done September 2016. Showed a mild obstructive ventilatory defect and 6 minutes walk test shows normal studies she maintain her oxygen saturation at 95% on room air after 6 minutes ambulated about 1276 feet. So she does not meet criteria for oxygen usage during ambulation or exercise. Cardiovascular Recent diagnostic studies: ECG EKG 06/04/17 NSR with borderline left axis deviation and borderline T wave abn. Exercise tolerance: <4 METS Beta Liliana therapy: Yes Dysrhythmias (s/p ablation); atrial fibrillation Hyperlipidemia Uses walker can perform ADL's needs assistance with long walking. 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 Endocrine/Other Diabetes (A1c 5.0), well controlled Steroids since April when she had pneumonia. Physical Exam Airway Findings Mallampati: II TM distance: >3 FB Neck ROM: full Mouth opening: good Airway patency: adequate Dental Findings: Lower dentures and upper dentures Cardiovascular Findings: Rhythm: irregular Rate: normal Pulmonary Findings: Decreased breath sounds.Rales: RLL crackles. Comments: Abdominal Findings: Negative Abdomen soft Bowel sounds normal. Neurological Findings: Negative Diagnostic Tests Hematology: Lab Results Component Value Date HGB 13.7 05/15/2017 HCT 39.9 05/15/2017 PLTCT 249 05/15/2017 WBC 8.1 05/15/2017 NEUT 63 05/15/2017 ANC 5.20 05/15/2017 ALC 1.90 05/15/2017 LATISHA 9 05/15/2017 AMC 0.70 05/15/2017 EOSA 3 05/15/2017 ABC 0.10 05/15/2017 MCV 86.3 05/15/2017 MCH 29.7 05/15/2017 MCHC 34.4 05/15/2017 MPV 8.6 05/15/2017 RDW 14.5 05/15/2017 General Chemistry: Lab Results Component Value Date NA 130 05/28/2017 K 4.6 05/28/2017 CL 96 05/28/2017 CO2 29 05/28/2017 GAP 5 05/28/2017 BUN 10 05/28/2017 CR 0.59 05/28/2017 GLU 115 05/28/2017 CA 9.6 05/28/2017 ALBUMIN 3.8 05/15/2017 MG 1.7 05/15/2017 TOTBILI 0.3 05/15/2017 Coagulation: Lab Results Component Value Date PTT 29.9 05/28/2017 INR 1.0 05/28/2017 Anesthesia Plan ASA score: 3 Plan: general Induction method: intravenous NPO status: acceptable Comments: (Pneumonia resolved. No changes in medical history since seen in PAT clinic. No signs of current COPD exacerbation. Plan for general.) Informed Consent Anesthetic plan and risks discussed with patient. Plan discussed with: anesthesiologist and BOX OFFICE MANAGER. 06/04/17 evaluated by ABA Samaniego; cardiology gave clearance with intermediate risk (from 02/2017). Pulmo saw he 05/29/2017 per pt. LINDSEY from that visit because pt still has some crackles in RLL. Discussed that these things might increase the risk for prolonged intubation and cardiac events. Patient verbalizes that she is aware Addendum: on review of chart, noted brief note from Lindsay Alejandre, " the patient is currently stable and their pulmonary status is optimized. At moderate risk per their assessment. in this encounter Plan of Treatment Not on fileas of this encounter Visit Diagnoses Not on filein this encounter Administered Medications Medication Order MAR Action Action Date Dose Rate Site ceFAZolin (ANCEF) IVP 2 g Given 06/13/2017 2 g 2 g, Intravenous, ONCE, 1 dose, Fri 07:40 DEBEAKER 06/13/17 at 0600, Give Pre-Op < 60 minutes prior to first incision. (Given in OR). IV PUSH -- RECONSTITUTE each 1 g vial by adding 10 mL 0.9% NACL dexamethasone (DECADRON) injection Given 06/13/2017 4 mg Intravenous, INTRA-PROCEDURE MED, 08:50 DEBEAKER Starting Fri06/13/17 at 0850, Until Fri06/13/17 at 0907, Nausea/Vomiting Injectable, Anesthesia Intra-op fentaNYL citrate PF (SUBLIMAZE) Given 06/13/2017 25 mcg injection 07:56 DEBEAKER INTRA-PROCEDURE MED, Starting Fri06/13/17 at 0732, Until Fri06/13/17 at 0907, Pain Injectable, Anesthesia Intra-op Given 06/13/2017 25 mcg 08:35 DEBEAKER Given 06/13/2017 25 mcg 08:44 DEBEAKER indigotindisulfonate (INDIGO CARMINE) Given 06/13/2017 5 mL injection 08:39 DEBEAKER INTRA-PROCEDURE MED, Starting Fri06/13/17 at 0839, Until Fri06/13/17 at 0907, Anesthesia Intra-op lactated ringers infusion Given - New 06/13/2017 1,000 mL 20 mL/hr 1,000 mL, 1,000 mL, Intravenous, at 20 Bag 06:20 DEBEAKER mL/hr, CONTINUOUS, Starting Fri06/13/17 at 0600, Until Fri06/13/17 at 1835, Pre-Op Given - New Bag 06/13/2017 08:44 DEBEAKER lidocaine (PF) injection Given 06/13/2017 60 mg INTRA-PROCEDURE MED, Starting Fri06/13/17 07:32 DEBEAKER at 0732, Until Fri06/13/17 at 0907, Anesthesia Intra-op midazolam (VERSED) injection Given 06/13/2017 2 mg Intravenous, INTRA-PROCEDURE MED, 07:25 DEBEAKER Starting Fri06/13/17 at 0725, Until Fri06/13/17 at 0907, Agitation Injectable, Anxiety Injectable, Anesthesia Intra-op ondansetron (ZOFRAN) injection Given 06/13/2017 4 mg Intravenous, INTRA-PROCEDURE MED, 08:50 DEBEAKER Starting Fri06/13/17 at 0850, Until Fri06/13/17 at 0907, Nausea/Vomiting Injectable, Anesthesia Intra-op phenylephrine in NS Injection Given 06/13/2017 100 mcg Intravenous, INTRA-PROCEDURE MED, 08:04 DEBEAKER Starting Fri06/13/17 at 0738, Until Fri06/13/17 at 0907, Symptomatic Hypotension, Anesthesia Intra-op Given 06/13/2017 100 mcg 08:13 DEBEAKER Given 06/13/2017 100 mcg 08:19 DEBEAKER propofol (DIPRIVAN) injection Given 06/13/2017 100 mg INTRA-PROCEDURE MED, Starting Fri06/13/17 07:32 DEBEAKER at 0732, Until Fri06/13/17 at 0907, Anesthesia Intra-op in this encounter
--- OUTSIDE RECORDS SUMMARY | 2017-06-15 14:23 | XMS REPORT | Encounter Summary ---
Author Author [facility] Organization [facility] Address Unknown Phone Unavailable Care Team Providers Care Basket Mender Name Role Phone Apoorva Shane MD Unavailable Edgardo Torres MD Unavailable Amanda Bhandari Unavailable Montana Villasenor MD Unavailable Gilles Ness MD Unavailable Rain Tariq MD Unavailable Harika Hsu MD Unavailable Nayana Mccarty RN Unavailable Unavailable Symone Lee Unavailable Unavailable Sukumar Mondragon APRN PCP Encounter Details Date Type Department Care Team Description 06/13/2017 Procedure Pass Main Operating Room [address] [place] [address] Social History Tobacco Use Types Packs/Day Years [...]
--- OUTSIDE RECORDS SUMMARY | 2017-06-15 14:23 | XMS REPORT | Encounter Summary ---
Author Author [facility] Organization [facility] Address Unknown Phone Unavailable Care Team Providers Care Mortgage Loan Counselor Name Role Phone Apoorva Shane MD Unavailable [...] Contact Diagnoses Urinary obstruction unknown P rocedures DE RMVL/REVJ SLING STRESS INCONTINENCE REVISION/REMOVAL VAGINAL SLING Encounter Details Date Type Department Care Team Description 06/13/2017 Surgery Main Operating Room Balbina Garcia MD URETHROLYSIS, INCISION OF [address] URE[address]RAL SLING, [place] [address] [address] [phone] [place] [address] Social History Tobacco Use Types Packs/Day Years Used Date Former Smoker Cigarettes 0.25 46 Smokeless Tobacco: Never Used Alcohol Use Drinks/Week oz/Week Comments No 0 Standard 0.0 drinks or equivalent Sex Assigned at Date Recorded Not on file as of this encounter Last Filed Vital Signs Vital Sign Reading Time Taken Blood Pressure 107/68 06/13/2017 10:15 AM TRAFFIC ENUMERATOR Pulse 89 06/13/2017 10:15 AM TRAFFIC ENUMERATOR Temperature 36.4 C (97.5 F) 06/13/2017 10:15 AM TRAFFIC ENUMERATOR Respiratory Rate - - Oxygen Saturation 94% 06/13/2017 10:15 AM TRAFFIC ENUMERATOR Inhaled Oxygen - - Concentration Weight 68.1 kg (150 lb 2.1 oz) 06/13/2017 6:08 AM TRAFFIC ENUMERATOR Height 160 cm (5' 2.99") 06/13/2017 6:08 AM TRAFFIC ENUMERATOR Body Mass Index 26.6 06/13/2017 6:08 AM TRAFFIC ENUMERATOR in this encounter Medications at Time of Discharge Medication Sig. Disp. Refills Start Date End Date albuterol (VENTOLIN HFA) Inhale 2 puffs by mouth 90 mcg/actuation inhaler into the lungs daily. Shake well before use. alendronate (FOSAMAX) 70 Take 70 mg by mouth every mg tablet 7 days. apixaban (ELIQUIS) 5 mg Take 5 mg by mouth twice tab tablet daily. baclofen (LIORESAL) 20 mg Take 20 mg by mouth three tablet times daily. benztropine (COGENTIN) Take 0.5 mg by mouth 0.5 mg tablet twice daily. budesonide/formoterol Inhale 2 Puffs by mouth (SYMBICORT) 160/4.5 mcg daily. HFAA inhalation calcium carbonate Take 1,250 mg by mouth (OS-DEAN) 1250 mg tablet daily. colesevelam(+) (WELCHOL) Take 1,875 mg by mouth 625 mg tablet twice daily with meals. diltiazem CD (CARDIZEM Take 240 mg by mouth CD) 240 mg capsule daily. diphenoxylate/atropine Take 2 tablets by mouth (LOMOTIL) 2.5/0.025 mg four times daily as tablet needed for Diarrhea. donepezil (ARICEPT) 10 mg Take 10 mg by mouth At tablet Bedtime Daily. ergocalciferol (VITAMIN Take 1 capsule by mouth D-2) 50,000 unit capsule every 7 days. Sundays estradiol (ESTRACE) 0.01 Insert or Apply to 42.5 g 11 05/28/2017 % (0.1 mg/g) vaginal vaginal area every 7 cream days. fluticasone (FLONASE) 50 Apply 1-2 sprays to each mcg/actuation nasal nostril as directed daily sprayIndications: as needed. Shake bottle ALLERGIC RHINITIS gently before using. gabapentin (NEURONTIN) Take 600 mg by mouth 600 mg tablet three times daily. HYDROcodone/acetaminophen Take 1 tablet by mouth 20 tablet 0 2017 (NORCO) 5/325 mg tablet every 4 hours as needed for Pain hydrOXYzine (ATARAX) 50 Take 50 mg by mouth three mg tablet times daily. lamoTRIgine (LAMICTAL) 25 Take 25 mg by mouth three mg tablet times daily. magnesium oxide (MAG-OX) Take 400 mg by mouth 400 mg tablet daily. memantine,+, (NAMENDA) 10 Take 10 mg by mouth mg tablet daily. metoprolol XL (TOPROL XL) Take 25 mg by mouth 25 mg extended release daily. tablet mirabegron(+) ER Take 1 tablet by mouth 30 tablet 3 03/07/201707/05 (MYRBETRIQ) 50 mg daily for 120 days. tabletIndications: Indications: URINARY URGE URINARY URGE INCONTINENCE INCONTINENCE montelukast (SINGULAIR) Take 10 mg by mouth at 10 mg tablet bedtime daily. MULTIVIT WITH Take 1 tablet by mouth CALCIUM,IRON,MIN (WOMEN'S daily. MULTIPLE VITAMINS PO) nitroglycerin (NITROSTAT) Place 0.4 mg under tongue 0.4 mg tablet every 5 minutes as needed for Chest Pain. other medication 1 Dose. 5L/NC home oxygen pantoprazole DR Take 80 mg by mouth (PROTONIX) 40 mg tablet daily. polyethylene glycol 3350 Take 17 g by mouth daily 06/13/20172017 (GLYCOLAX; MIRALAX) 17 for 30 days. gram/dose powder primidone (MYSOLINE) 250 Take 250 mg by mouth mg tablet every 8 hours. rifAXIMin (XIFAXAN) 550 Take 550 mg by mouth mg tablet every 8 hours. ropinirole (REQUIP) 2 mg Take 2 mg by mouth At tablet Bedtime Daily. senna/docusate Take 1 tablet by mouth 06/13/2017 07/13/2017 (SENOKOT-S) 8.6/50 mg daily for 30 days. tablet simvastatin (ZOCOR) 20 mg Take 20 mg by mouth At tablet Bedtime Daily. tiotropium (SPIRIVA) 18 Inhale 18 mcg by mouth mcg capsule for inhaler daily. traZODone (DESYREL) 150 Take 150 mg by mouth at mg tablet bedtime daily. trospium(+) (SANCTURA) 20 Take 1 tablet by mouth 180 tablet 3 2016 mg tablet three times daily before meals. as of this encounter Progress Notes * Leatha Langford RN - 06/13/2017 10:57 AM TRAFFIC ENUMERATOR 1050 - pt bladder scanned post void - 31ml - Dr. Sheridan notified. 1100 - pt cleared to go home per RN working with Dr. Sheridan * Lulu Rosales RN - 06/13/2017 10:47 AM TRAFFIC ENUMERATOR Patient's SpO2 > 95 % with 3L NC, which she reports she wears at home. While on room air, patient's sPO2 90-93%. Anesthesia notified at time of sign out. * Lulu Rosales RN - 06/13/2017 10:42 AM TRAFFIC ENUMERATOR Per orders, vaginal packing removed at approx. 1035 in PACU. 300 cc urine drained from cronin, 250 cc sterile water instilled into bladder via cronin. Cronin removed after sterile water instilled. Patient tolerated well. Transferred to phase II, hand off provided to Leatha Ozuna RN assuming care of patient. in this encounter H&P Notes * Balbina Garcia MD - 05/28/2017 8:45 AM TRAFFIC ENUMERATOR Formatting of this note may be different from the original. Date of Service: 06/01/2017 9:17 PM Subjective: Nara Huizar is a 61 y.o. female. History of Present Illness Nara Huizar is a 61 year old female with a history of lower urinary tract symptoms, primarily urinary urgency after a prior urethral sling placement by Dr. Yeh 3 years ago.. Ms. Huizar also has a history of microscopic and gross hematuria and has had a complete negative workup. She also has a history of spinal MS. Her symptoms have been present for 3 years. She leaks a small amount of urine with with urge. She describes her primary symptoms as having to strain to void, decreased force of stream and sensation of incomplete emptying of bladder. She endorses having to crede and lean forward to empty. She reports minimal stress leakage and does not use pads. She states that over the last year her straining and difficulty emptying has gotten worse. She has had recurrent UTIs and Ms. Huizar has also had recent urodynamics which demonstrated elevated PVR at 450 ml, no detrusor overactivity, decreased sensation, and high voiding pressure , but no leakage. Voiding frequency: q1 hours during the Pad usage: None Other: Denies constipation GUHx: No stones/No trauma, History of recurrent UTIs since placement of her sling, Nohistory of cancers Pelvic surgeries: Prior mid-urethral sling Labs and Studies: PVR: 140 mls U/A: Blood: trace Leukocytes:negative Nitrite:negative Glucose:negative I personally reviewed the patient's past medical history, surgical history, family history, social history, medications, and allergies. Review of Systems Constitutional: Negative for activity change, appetite change, chills, diaphoresis, fatigue, fever and unexpected weight change. HENT: Negative for congestion, hearing loss, mouth sores and sinus pressure. Eyes: Negative for visual disturbance. Respiratory: Negative for apnea, cough, chest tightness and shortness of breath. Cardiovascular: Negative for chest pain, palpitations and leg swelling. Gastrointestinal: Negative for abdominal pain, blood in stool, constipation, diarrhea, nausea, rectal pain and vomiting. Genitourinary: Positive for decreased urine volume, difficulty urinating and dysuria. Negative for dyspareunia, enuresis, flank pain, frequency, hematuria, pelvic pain, vaginal bleeding, vaginal discharge and vaginal pain. Musculoskeletal: Negative for arthralgias, back pain, gait problem and myalgias. Skin: Negative for rash and wound. Neurological: Negative for dizziness, tremors, seizures, syncope, light- headedness, numbness and headaches. Hematological: Negative for adenopathy. Does not bruise/bleed easily. Psychiatric/Behavioral: Negative for decreased concentration and dysphoric mood. The patient is not nervous/anxious. Past Medical History: Diagnosis Date Acid reflux Alzheimer disease 2005 Anxiety disorder Arthritis Asthma Colon polyps Depression [...] one in 2014 COLONOSCOPY [facility]ouse MO DE SIGMOIDOSCOPY FLX DX W/COLLJ SPEC BR/WA IF PFRMD N/A 09/26/2015 SIGMOIDOSCOPY DIAGNOSTIC to rule out ulcerative colitis. performed by Edgardo Torres MD at ENDO[facility]GI DE SIGMOIDOSCOPY FLX W/BIOPSY SINGLE/MULTIPLE 09/26/2015 SIGMOIDOSCOPY BIOPSY performed by Edgardo Torres MD at ENDO/GI BLADDER SURGERY EPIDURAL BLOCK Family History Problem Relation Age of Onset Cancer-Breast Mother Heart problem Mother Brain Tumor Father Cancer Father 65 Brain tumor Heart Attack Brother Heart Disease Brother Heart Surgery Brother Cancer-Breast Maternal Grandmother Alzheimer's Maternal Grandfather Cancer-Breast Paternal Grandmother Cancer Paternal Grandfather Heart problem Paternal Grandfather Cancer-Lung Paternal Grandfather Celiac Disease Neg Hx Cancer-Colon Neg Hx Colon Polyps Neg Hx Current Outpatient Prescriptions Medication Sig Dispense Refill albuterol (VENTOLIN HFA) 90 mcg/actuation inhaler Inhale [...] inhalation Inhale 2 Puffs by mouth daily. CALCIUM PO Take 600 mg by mouth. cephalexin (KEFLEX) 500 mg capsule Take 500 [...] Take 100 mg by mouth twice daily. ERGOCALCIFEROL (VITAMIN D2) (VITAMIN D PO) Take 50,000 Units by mouth every 7 days. estradiol (ESTRACE) 0.01 % (0.1 mg/g) vaginal cream Insert or Apply to vaginal area every 7 days. 42.5 g 11 FLUTICASONE PROPIONATE (FLONASE NA) Insert into nose as directed. gabapentin (NEURONTIN) 600 mg tablet Take 600 mg by mouth three times daily. hydrOXYzine (ATARAX) 25 mg tablet Take 25 mg by mouth three times daily as needed for Itching. lamoTRIgine (LAMICTAL) 25 mg tablet Take 25 [...] for 120 days. Indications: URINARY URGE INCONTINENCE 30 tablet 3 mirtazapine (REMERON) 45 mg tablet Take 45 [...] Take 20 mg by mouth twice daily.) 180 tablet 3 No current facility-administered medications for this visit. Allergies Allergen Reactions Triple Antibiotic [Abjje-Qanun-Tbhocnv-Pramoxine] RASH Ibuprofen Social History Social History Marital status: Spouse name: N/A Number of children: N/A Years of education: N/A Occupational History Disabled Social History Main Topics Smoking status: Former Smoker Years: 42.00 Types: Cigarettes Quit date: 05/29/2015 Smokeless tobacco: Never Used Alcohol use No Drug use: No Sexual activity: Not on file Other Topics Concern Not on file Social History Narrative No narrative on file Objective: Vitals: 05/28/17 0858 BP: 119/66 Pulse: 79 Weight: 71.4 kg (157 lb 6.4 oz) Height: 160 cm (63") Body mass index is 27.88 kg/m. Physical Exam Constitutional: She is oriented to person, place, and time. She appears well- developed and well-nourished. HENT: Head: Normocephalic and atraumatic. Eyes: EOM are normal. Pupils are equal, round, and reactive to light. Neck: Normal range of motion. Cardiovascular: Normal rate. Pulmonary/Chest: Effort normal and breath sounds normal. She has no wheezes. She exhibits no tenderness. Abdominal: Soft. She exhibits no distension. There is no tenderness. There is no rebound and no guarding. Genitourinary: Genitourinary Comments: Poor proprioception. Normal bulbocavernosal reflex. No pelvic organ prolapse. No urethral hypermobility. No masses. No leak. Normal levator tone bilaterally. Moderately atrophic vaginal epithelium. Mesh palpable at the mid-urethra without erosion. Musculoskeletal: Normal range of motion. She exhibits no edema or tenderness. Neurological: She is alert and oriented to person, place, and time. Skin: Skin is warm and dry. Psychiatric: She has a normal mood and affect. Her behavior is normal. Judgment and thought content normal. Vitals reviewed. [id number] Assessment and Plan: Ilya Daniel MD PGY-3 Urology in this encounter Plan of Treatment Name Priority Associated Diagnoses Date/Time SURGICAL PATHOLOGY 06/13/2017 9:04 AM TRAFFIC ENUMERATOR Name Priority Associated Diagnoses Order Schedule SURGICAL PATHOLOGY Routine Urinary obstruction ONCE for 1 Occurrences starting 06/13/2017 as of this encounter Results * POC GLUCOSE (06/13/2017 9:05 AM) Component Value Ref Range Glucose, POC 98 70 - 100 MG/DL Specimen Performing Laboratory [facility] [address] [place] [address] * POC GLUCOSE (06/13/2017 6:25 AM) Component Value Ref Range Glucose, POC 110 (H) 70 - 100 MG/DL Specimen Performing Laboratory [facility] [address] [place] [address] in this encounter Visit Diagnoses Diagnosis Urinary obstruction Urinary obstruction, unspecified Admitting Diagnoses Diagnosis Urinary obstruction - unknown Urinary obstruction, unspecified Administered Medications Medication Order MAR Action Action Date Dose Rate Site ceFAZolin (ANCEF) 1 g in sodium chloride Given 06/13/2017 1,000 mL Other 0.9% irrigation bottle 1,000 mL 08:20 TRAFFIC ENUMERATOR irrigation bottle 1,000 mL, INTRA-PROCEDURE MED, Starting Fri06/13/17 at 0820, Until Fri06/13/17 at 1835, Intra-op estradiol (ESTRACE) vaginal cream Given 06/13/2017 2 Doses Other INTRA-PROCEDURE MED, Starting Fri06/13/17 08:20 TRAFFIC ENUMERATOR at 0820, Until Fri06/13/17 at 1835, Intra-op fentaNYL citrate PF (SUBLIMAZE) Given 06/13/2017 50 mcg injection 25-50 mcg 09:09 TRAFFIC ENUMERATOR 25-50 mcg, Intravenous, EVERY 5 MIN PRN, Starting Fri06/13/17 at 0852, Until Fri06/13/17 at 1835, Pain Injectable, For Pain Score 7-10, Maximum total dose of 200 mcg Hold for RR < 10 Given 06/13/2017 50 mcg 09:17 TRAFFIC ENUMERATOR HYDROmorphone injection (DILAUDID) Given 06/13/2017 0.5 mg injection 0.5 mg 09:44 TRAFFIC ENUMERATOR 0.5 mg, Intravenous, ONCE, 1 dose, Fri06/13/17 at 0945, PACU (only) lactated ringers infusion Given - New 06/13/2017 1,000 mL 20 mL/hr 1,000 mL, 1,000 mL, Intravenous, at 20 Bag 06:20 TRAFFIC ENUMERATOR mL/hr, CONTINUOUS, Starting Fri06/13/17 at 0600, Until Fri06/13/17 at 1835, Pre-Op Given - New Bag 06/13/2017 08:44 TRAFFIC ENUMERATOR lidocaine 1% /EPINEPHrine 1:[id number] Given 06/13/2017 20 mL Other (buffered) vial 08:44 TRAFFIC ENUMERATOR INTRA-PROCEDURE MED, Starting Fri06/13/17 at 0821, Until Fri06/13/17 at 1835, Intra-op oxyCODONE (ROXICODONE, OXY-IR) tablet Given 06/13/2017 10 mg 5-10 mg 09:22 TRAFFIC ENUMERATOR 5-10 mg, Oral, ONCE PRN, 1 dose, Starting Fri06/13/17 at 0852, Until Fri06/13/17 at 2359, Pain PO, For Pain Score <4, PACU (only) sodium chloride 0.9 % irrigation bag Given 06/13/2017 3,000 mL Other INTRA-PROCEDURE MED, Starting Fri06/13/17 08:22 TRAFFIC ENUMERATOR at 0822, Until Fri06/13/17 at 1835, Intra-op water, sterile irrigation bottle Given 06/13/2017 Irrigation, ONCE, 1 dose, Fri06/13/17 at 10:51 TRAFFIC ENUMERATOR 1000, PACU (only) in this encounter
--- OUTSIDE RECORDS SUMMARY | 2017-06-15 14:23 | XMS REPORT | Clinical Summary ---
Author Author [facility] Organization [facility] Address Unknown Phone Unavailable Care Team Providers Care Director Integrated Name Role Phone Apoorva Shane MD Unavailable Edgardo Torres MD Unavailable Amanda Bhandari Unavailable Montana Villasenor MD Unavailable Gilles Ness MD Unavailable Keysha Wheeler MD Unavailable aHrika Hsu MD Unavailable Nayana Mccarty RN Unavailable Unavailable Symone Lee Unavailable Unavailable Sukumar Mondragon APRN PCP Source Comments Some departments are not documenting in the electronic medical record. If you do not see the information that you expected, contact Release of Information in the Health Information Management department at [phone] for further assistance in locating additional records.[facility] Allergies Active Allergy Reactions Severity Noted Date Comments Ibuprofen RASH Medium 06/09/2009 Lxefi-Jqwfk-Outbkfc-Pramo RASH Medium 01/23/2017 xine Current Medications Prescription Sig. Disp. Refills Start End Date Status Date ropinirole (REQUIP) 2 mg Take 2 mg by mouth At Active tablet Bedtime Daily. simvastatin (ZOCOR) 20 mg Take 20 mg by mouth At Active tablet Bedtime Daily. memantine,+, (NAMENDA) 10 Take 10 mg by mouth Active mg tablet daily. donepezil (ARICEPT) 10 mg Take 10 mg by mouth At Active tablet Bedtime Daily. budesonide/formoterol Inhale 2 Puffs by mouth Active (SYMBICORT) 160/4.5 mcg daily. HFAA inhalation tiotropium (SPIRIVA) 18 Inhale 18 mcg by mouth Active mcg capsule for inhaler daily. alendronate (FOSAMAX) 70 Take 70 mg by mouth every Active mg tablet 7 days. nitroglycerin (NITROSTAT) Place 0.4 mg under tongue Active 0.4 mg tablet every 5 minutes as needed for Chest Pain. diphenoxylate/atropine Take 2 tablets by mouth Active (LOMOTIL) 2.5/0.025 mg four times daily as tablet needed for Diarrhea. gabapentin (NEURONTIN) Take 600 mg by mouth Active 600 mg tablet three times daily. apixaban (ELIQUIS) 5 mg Take 5 mg by mouth twice Active tab tablet daily. other medication 1 Dose. 5L/NC home oxygen Active primidone (MYSOLINE) 250 Take 250 mg by mouth Active mg tablet every 8 hours. trospium(+) (SANCTURA) 20 Take 1 tablet by mouth 180 tablet 3 Active mg tablet three times daily before 17 meals. baclofen (LIORESAL) 20 mg Take 20 mg by mouth three Active tablet times daily. MULTIVIT WITH Take 1 tablet by mouth Active CALCIUM,IRON,MIN (WOMEN'S daily. MULTIPLE VITAMINS PO) rifAXIMin (XIFAXAN) 550 Take 550 mg by mouth Active mg tablet every [address] Take 80 mg by mouth Active (PROTONIX) 40 mg tablet daily. diltiazem CD (CARDIZEM Take 240 mg by mouth Active CD) 240 mg capsule daily. metoprolol XL (TOPROL XL) Take 25 mg by mouth Active 25 mg extended release daily. tablet colesevelam(+) (WELCHOL) Take 1,875 mg by mouth Active 625 mg tablet twice daily with meals. montelukast (SINGULAIR) Take 10 mg by mouth at Active 10 mg tablet bedtime daily. traZODone (DESYREL) 150 Take 150 mg by mouth at Active mg tablet bedtime daily. albuterol (VENTOLIN HFA) Inhale 2 puffs by mouth Active 90 mcg/actuation inhaler into the lungs daily. Shake well before use. mirabegron(+) ER Take 1 tablet by mouth 30 tablet 3 03/07/20 Active (MYRBETRIQ) 50 mg daily for 120 days. 17 18 tabletIndications: Indications: URINARY URGE URINARY URGE INCONTINENCE INCONTINENCE magnesium oxide (MAG-OX) Take 400 mg by mouth Active 400 mg tablet daily. lamoTRIgine (LAMICTAL) 25 Take 25 mg by mouth three Active mg tablet times daily. benztropine (COGENTIN) Take 0.5 mg by mouth Active 0.5 mg tablet twice daily. estradiol (ESTRACE) 0.01 Insert or Apply to 42.5 g 11 05/28/19 Active % (0.1 mg/g) vaginal vaginal area every 7 18 cream days. hydrOXYzine (ATARAX) 50 Take 50 mg by mouth three Active mg tablet times daily. calcium carbonate Take 1,250 mg by mouth Active (OS-DEAN) 1250 mg tablet daily. ergocalciferol (VITAMIN Take 1 capsule by mouth Active D-2) 50,000 unit capsule every 7 days. Sundays fluticasone (FLONASE) 50 Apply 1-2 sprays to each Active mcg/actuation nasal nostril as directed daily sprayIndications: as needed. Shake bottle ALLERGIC RHINITIS gently before using. polyethylene glycol 3350 Take 17 g by mouth daily 06/14/19 07/14/19 Active (GLYCOLAX; MIRALAX) 17 for 30 days. 18 18 gram/dose powder senna/docusate Take 1 tablet by mouth 06/14/19 07/14/19 Active (SENOKOT-S) 8.6/50 mg daily for 30 days. 18 18 tablet HYDROcodone/acetaminophen Take 1 tablet by mouth 20 tablet 0 06/14/19 Active (NORCO) 5/325 mg tablet every 4 hours as needed 18 for Pain ALPRAZolam (XANAX) 1 mg Take 1 mg by mouth as 06/04/19 Discontin tablet Needed. 18 ued FLUTICASONE PROPIONATE Insert into nose as 06/04/19 Discontin (FLONASE NA) directed. 18 ued CETIRIZINE HCL (ZYRTEC Take by mouth. 06/04/19 Discontin PO) 18 ued ERGOCALCIFEROL (VITAMIN Take 50,000 Units by 06/04/19 Discontin D2) (VITAMIN D PO) mouth every 7 days. 18 ued hydrOXYzine (ATARAX) 25 Take 25 mg by mouth three 02/28/20 Discontin mg tablet times daily as needed for 18 ued Itching. CLONAZEPAM PO Take by mouth at bedtime 06/04/19 Discontin as needed. 18 ued CALCIUM PO Take 600 mg by mouth. 06/04/19 Discontin 18 ued mirtazapine (REMERON) 45 Take 45 mg by mouth at 06/04/19 Discontin mg tablet bedtime daily. 18 ued ciprofloxacin (CIPRO) 500 Take 1 tablet by mouth 2 tablet 0 05/20/19 05/21/19 mg tablet twice daily for 1 day. 18 18 budesonide/formoterol Inhale by mouth into the 05/22/19 06/04/19 Discontin (SYMBICORT HFA) 160/4.5 lungs. 18 18 ued mcg inhalation doxycycline (VIBRAMYCIN) Take 100 mg by mouth 06/04/19 Discontin 100 mg tablet twice daily. 18 ued cephalexin (KEFLEX) 500 Take 500 mg by mouth four 06/04/19 Discontin mg capsule times daily. 18 ued Active Problems Problem Noted Date Urinary obstruction 05/28/2017 Overview: 61 year old female with a history of a MUS 3 years ago, with significant obstructive symptoms that time that have continued to worsen. She has objective evidence of obstruction on recent urodynamics, pain and straining with voiding, urgency and urge incontinence, and recurrent UTIs. She also has evidence of vaginal atrophy and we will start her on estrace cream. We discussed sling incision and the likelihood that this would improve her difficulty with voiding. We also discussed the possibility of stress incontinence following the procedure. - Will plan on proceeding to the OR on 06/13/[address] Garcia. - Consent obtained in clinic today after discussing risks and benefits - Pre-anesthesia testing: Patient will attend PAT and will need to hold Eliquis and ASA for 1 week before her procedure - Consults: None - Pre-op Order placed Urge incontinence of urine 06/13/2015 Overview: 61 year old female with a history of urge incontinence which has been worse since placement of a urethral sling L ast Assessment & Plan: Patient's PVR is not [...] Encounters Date Type Specialty Care Team Description 06/15/2017 Pharmacy Visit 06/13/2017 Hospital Balbina Garcia MD Urinary obstruction Encounter 06/13/2017 Telephone Urology Balbina Garcia MD Medication Question 06/13/2017 Pharmacy Visit 06/13/2017 Procedure Pass 06/13/2017 Surgery Balbina Garcia MD URETHROLYSIS, INCISION OF URETHRAL SLING, CYSTOSCOPY 06/10/2017 Refill Uro Retail Marketing Manager Gilles Ness MD 06/04/2017 PAC Office Anesthesiology Balbina Garcia MD Atrial fibrillation, Visit unspecified type (HCC) (Primary Dx); Hypertension, unspecified type 06/04/2017 Anesthesia Sandra Lakhani CRNA Event 05/30/2017 Telephone Urology Balbina Garcia MD General Question 05/30/2017 Telephone Nephrology Alvaro Duval MD Results 05/29/2017 Telephone Urology Balbina Garcia MD General Question 05/29/2017 Documentation Urology Balbina Garcia MD 05/28/2017 Hospital Lab Balbina Garcia MD Hemorrhagic condition, Encounter unspecified (HCC) 05/28/2017 Hospital Lab Balbina Garcia MD Urge incontinence Encounter 05/28/2017 Office Visit Urology Balbina Garcia MD Urge incontinence of urine (Primary Dx); Urinary obstruction 05/28/2017 Prep for Case Urology Balbina Garcia MD Urinary obstruction (Primary Dx); Bleeding tendency (HCC) 05/23/2017 Telephone Uro Retail Marketing Manager Keysha Wheeler MD Results 05/20/2017 Hospital Lab Keysha Wheeler MD Urinary tract infection, Encounter site not specified 05/20/2017 Office Visit Uro Retail Marketing Manager Keysha Wheeler MD Possible urinary tract infection (Primary Dx) 05/20/2017 Procedure visit Urology Alvaro Duval MD Urge incontinence Harika Hsu MD (Primary Dx) 05/20/2017 Clinical Urology Urge incontinence Support (Primary Dx) 05/16/2017 Telephone Nephrology Alvaro Duval MD Results 05/15/2017 Hospital Lab Alvaro Duval MD Hematuria, unspecified Encounter 05/15/2017 Office Visit Nephrology Alvaro Duval MD Hematuria , unspecified type (Primary Dx); Hyponatremia; Hypotension, unspecified hypotension type 04/15/2017 Telephone Uro Retail Marketing Manager Keysha Wheeler MD Appointment Question 04/10/2017 Hospital Lab Keysha Wheeler MD Urinary tract infection, Encounter site not specified 04/10/2017 Office Visit Uro Retail Marketing Manager Keysha Wheeler MD Suspected urinary tract infection (Primary Dx) from Last 3 Months Family History Medical History Relation Name Comments Heart Attack Brother Heart Disease Brother Heart Surgery Brother Brain Tumor Father Cancer Father Brain tumor Alzheimer's Maternal Grandfather Cancer-Breast Maternal Grandmother Cancer-Breast Mother Heart problem Mother Cancer Paternal Grandfather Cancer-Lung Paternal Grandfather Heart problem Paternal Grandfather Cancer-Breast Paternal Grandmother Cancer-Colon Neg Hx Celiac Disease Neg Hx Colon Polyps Neg Hx Relation Name Status Comments Brother Alive heart [...] Cigarettes 0.25 46 Smokeless Tobacco: Never Used Tobacco Cessation: Ready to Quit: No; Counseling Given: Yes Alcohol Use Drinks/Week oz/Week Comments No 0 Standard 0.0 drinks or equivalent Sex Assigned at Date Recorded Not on file Last Filed Vital Signs Vital Sign Reading Time Taken Blood Pressure 107/68 06/13/2017 10:15 AM DESKTOP PUBLISHER Pulse 89 06/13/2017 10:15 AM DESKTOP PUBLISHER Temperature 36.4 C (97.5 F) 06/13/2017 10:15 AM DESKTOP PUBLISHER Respiratory Rate 20 10/25/2015 10:12 AM CDT Oxygen Saturation 94% 06/13/2017 10:15 AM DESKTOP PUBLISHER Inhaled Oxygen - - Concentration Weight 68.1 kg (150 lb 2.1 oz) 06/13/2017 6:08 AM DESKTOP PUBLISHER Height 160 cm (5' 2.99") 06/13/2017 6:08 AM DESKTOP PUBLISHER Body Mass Index 26.6 06/13/2017 6:08 AM DESKTOP PUBLISHER Plan of Treatment Health Maintenance Due Date Last Done Comments HEPATITIS C SCREENING 1955 PHYSICAL (COMPREHENSIVE) 1960 EXAM PERTUSSIS VACCINE 1964 HIV SCREENING 1968 TETANUS VACCINE 1970 DILATED EYE EXAM 07/21/1971 FOOT EXAM 07/21/1971 HBA1C 07/21/1971 MICROALBUMIN 07/21/1971 PNEUMONIA VACCINE (DM) 07/21/1971 CERVICAL CANCER SCREENING 07/21/1983 BREAST CANCER SCREENING 1993 COLORECTAL CANCER 07/21/2003 SCREENING SHINGLES VACCINE 2013 INFLUENZA VACCINE 01/05/2018 Procedures Procedure Name Priority Date/Time Associated Diagnosis Comments WI CYSTOURETHROSCOPY Routine 05/20/2017 Urge incontinence Results for this 10:00 AM DESKTOP PUBLISHER procedure are in the results section. URODYNAMIC STUDIES Routine 05/20/2017 Urge incontinence 12:00 AM DESKTOP PUBLISHER from Last 3 Months Results * POC GLUCOSE (06/13/2017 9:05 AM) Only the most recent of 2 results within the time period is included. Component Value Ref Range Glucose, POC 98 70 - 100 MG/DL Specimen Performing Laboratory [facility] [address] [place] [address] * PTT (APTT) (05/28/2017 10:02 AM) Component Value Ref Range APTT 29.9 21.0 - 39.0 SEC Specimen Performing Laboratory [facility] [address] [place] [id number] * PROTIME INR (PT) (05/28/2017 10:02 AM) Component Value Ref Range INR 1.0 0.8 - 1.2 Specimen Performing Laboratory [facility] [address] [place] [address] * BASIC METABOLIC PANEL (05/28/2017 10:02 AM) Component Value Ref Range Sodium 130 (L) 137 - 147 MMOL/L Potassium 4.6 3.5 - 5.1 MMOL/L Chloride 96 (L) 98 - 110 MMOL/L CO2 29 21 - 30 MMOL/L Anion Gap 5 3 - 12 Glucose 115 (H) 70 - 100 MG/DL Blood Urea Nitrogen 10 7 - 25 MG/DL Creatinine 0.59 0.4 - 1.00 MG/DL Calcium 9.6 8.5 - 10.6 MG/DL eGFR Non >60 [...] questions. Specimen Performing Laboratory Blood [facility]IN [facility] [address] [place] [address] * SODIUM-URINE RANDOM (05/28/2017 9:30 AM) Only the most recent of 2 results within the time period is included. Component Value Ref Range Sodium, Random 35 MMOL/L Specimen Performing Laboratory Urine MAIN [facility] [address] [place] [address] * OSMOLALITY-URINE RANDOM (05/28/2017 9:30 AM) Only the most recent of 2 results within the time period is included. Component Value Ref Range Osmolality-Urine 193 50 - 1,400 MOS/KG Specimen Performing Laboratory Urine MAIN [facility] [address] [place] [address] * CULTURE-URINE W/SENSITIVITY (05/28/2017 9:30 AM) Only the most recent of 3 results within the time period is included. Component Value Ref Range Battery Name URINE CULTURE Specimen Description URINE, CLEAN CATCH Special Requests NONE Culture NO GROWTH Report Status FINAL 05/29/2017 Specimen Performing Laboratory Urine - Urine,Clean Catch MAIN [facility] [address] [place] [address] * POC URINE DIPSTICK MANUAL READ (05/28/2017) Only the most recent of 3 results within the time period is included. Component Value Ref Range Urine Glucose POC NEG Urine Bilirubin POC NEG Urine Ketone POC NEG Urine Specific [place] 1.000 POC Urine Blood POC TRACE Urine PH POC 5.0 Urine Protein POC NEG Urine Urobilinogen POC 0.2 Urine Nitrite POC NEG Urine Leukocytes POC NEG Color,UA YELLOW Turbidity,UA CLEAR Specimen Performing Laboratory Urine IN CLINIC * CYSTOSCOPY (05/20/2017 10:00 AM) Specimen Performing Laboratory IN CLINIC Harika Nichols MD 05/20/2017 10:57 AM Procedure:Cystourethroscopy Provider: Harika Hsu MD Anesthesia:2% Lidocaine Gel, Intraurethral Complications:None Indication for Procedure:LUTS after sling After informed consent obtained, she was placed in dorsolithotomy position then prepped in the usual fashion.Local 2% lidocaine gel placed per urethra.The flexible cystoscope was gently passed into the urethra under direct visualization.Panendoscopy of the bladder did not show any papillary lesions, foreign bodies or signs of infection.Very large capacity bladder.Both ureteral orifices were identified and effluxed clear, yellow urine.Retroflex View performed.Subsequently the cystoscope was withdrawn and there urethra appeared normal.She tolerated the procedure well, and left the exam room in a pleasant disposition. Orders Placed This Encounter CYSTOSCOPY ciprofloxacin (CIPRO) 500 mg tablet Harika Hsu MD * URODYNAMIC STUDIES (05/20/2017) Specimen Performing Laboratory IN CLINIC * PROTEIN/CR RATIO,UR RAN (05/15/2017 11:14 AM) Component Value Ref Range Protein, Random 5 MG/DL Creatinine, Random 26 MG/DL Protein/CR ratio 0.2 Specimen Performing Laboratory Urine MAIN LAB [address] [place] [address] * CBC AND DIFF (05/15/2017 11:00 AM) Component Value Ref Range White Blood Cells 8.1 4.5 - 11.0 K/UL RBC 4.62 4.0 - 5.0 M/UL Hemoglobin 13.7 12.0 - 15.0 GM/DL Hematocrit 39.9 36 - 45 % MCV 86.3 80 - 100 FL MCH 29.7 26 - 34 PG MCHC 34.4 32.0 - 36.0 G/DL RDW 14.5 11 - 15 % Platelet Count 249 150 - 400 K/UL MPV 8.6 7 - 11 FL Neutrophils 63 41 - 77 % Lymphocytes 24 24 - 44 % Monocytes 9 4 - 12 % Eosinophils 3 0 - 5 % Basophils 1 0 - 2 % Absolute Neutrophil Count 5.20 1.8 - 7.0 K/UL Absolute Lymph Count 1.90 1.0 - 4.8 K/UL Absolute Monocyte Count 0.70 0 - 0.80 K/UL Absolute Eosinophil Count 0.20 0 - 0.45 K/UL Absolute Basophil Count 0.10 0 - 0.20 K/UL Specimen Performing Laboratory Blood MAIN LAB [address] [place] [address] * MAGNESIUM (05/15/2017 11:00 AM) Component Value Ref Range Magnesium 1.7 1.6 - 2.6 mg/dL Specimen Performing Laboratory Blood MAIN LAB [address] [place] [address] * COMPREHENSIVE METABOLIC PANEL (05/15/2017 11:00 AM) Component Value Ref Range Sodium 129 (L) 137 - 147 MMOL/L Potassium 4.1 3.5 - 5.1 MMOL/L Chloride 94 (L) 98 - 110 MMOL/L Glucose 89 70 - 100 MG/DL Blood Urea Nitrogen 4 (L) 7 - 25 MG/DL Creatinine 0.49 0.4 - 1.00 MG/DL Calcium 9.9 8.5 - 10.6 MG/DL Total Protein 6.4 6.0 - 8.0 G/DL Total Bilirubin 0.3 0.3 - 1.2 MG/DL Albumin 3.8 3.5 - 5.0 G/DL Alk Phosphatase 110 25 - 110 U/L AST (SGOT) 26 7 - 40 U/L CO2 26 21 - 30 MMOL/L ALT (SGPT) 21 7 - 56 U/L Anion Gap 9 3 - 12 eGFR Non >60 >60 [...] Performing Laboratory Blood [facility] [address] [place] [address] * POC URINE DIPSTICK AUTO READ (05/15/2017) Component Value Ref Range Urine Glucose POC norm Urine Bilirubin POC neg Urine Ketone POC neg Urine Specific [place] 1.000 POC Urine Blood POC 50 Urine PH POC 6.5 Urine Protein POC neg Urine Urobilinogen POC norm Urine Nitrite POC neg Urine Leukocytes POC neg Color,UA Turbidity,UA Specimen Performing Laboratory Urine IN CLINIC * NON-CHAR FILTER TANK TENDER HEAD CYTOLOGY (BODY FLUIDS/TISSUE) (04/10/2017 10:47 AM) Component Value Ref Range Cytology [facility] [email or web address] Department of Pathology and Laboratory Medicine [address] [place] [id number] Surgical Pathology Office: [phone] CYTOLOGY REPORT NAME: NARA HUIZAR JO CYTOLOGY #: [id number] MR #: [id number] ALT ID #: [id number] #: [id number] LOCATION: [facility] DATE OF PROCEDURE: 04/10/2017 AGE: 61 SEX: F DATE RECEIVED: 04/11/2017 : 1955 TIME RECEIVED: 10:47 PHYSICIAN: KEYSHA WHEELER MD DATE OF REPORT: 04/14/2017 COPY TO: DATE OF PRINTIN04/14/2017 Material Received: A: Urine (Voided) History: 61 year old female with history of recurrent UTI's, and overactive bladder condition. Gross Description: (1thin prep) 30ml clear, yellow fluid. ################################################## ###################### Final Diagnosis: A. Urine (Voided): Predominantly squamous cells with scant urothelial cells. Negative for high-grade urothelial carcinoma. Attestation: By this signature, I attest that I have personally formulated the final interpretation expressed in this report and that the above diagnosis is based upon my examination of the slides and/or other material indicated in this report. +++Electronically Signed Out By+++ ma/04/14/2017 Interpreted by: Yuli Robledo MD, PhD Fe Orellana DO Resident Specimen Performing Laboratory [facility] RESULTS from Last 3 Months
--- OUTSIDE RECORDS SUMMARY | 2017-06-15 14:23 | XMS REPORT | Encounter Summary ---
Author Author [facility] Organization [facility] Address Unknown Phone Unavailable Care Team Providers Care Commercial Green Building Designer Name Role Phone Apoorva Shane MD Unavailable Edgardo Torres MD Unavailable Amanda Bhandari Unavailable Montana Villasenor MD Unavailable Gilles Ness MD Unavailable Rain Tariq MD Unavailable Harika Hsu MD Unavailable Nayana Mccarty RN Unavailable Unavailable Symone Lee Unavailable Unavailable Sukumar Mondragon APRN PCP Reason for Visit * Reason Comments Medication Question Encounter Details Date Type Department Care Team Description 06/13/[address] [facility] Balbina Garcia MD Medication Question Physicians - Urology [address] [facility] [address]ND FLOOR POD [address] [facility] [place] [address] [address] [phone] [place] [address] Social History Tobacco Use Types Packs/Day Years Used Date Former Smoker Cigarettes 0.25 46 Smokeless Tobacco: Never Used Alcohol Use Drinks/Week oz/Week Comments No 0 Standard 0.0 drinks or equivalent Sex Assigned at Date Recorded Not on file as of this encounter Miscellaneous Notes * Telephone Encounter - Pawel Dacosta MA - 06/13/2017 2:21 PM 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 She did not know whether or not she was to be picking those up from her pharmacy or not. I spoke with sophie who sent them to [facility] in [place] for her. She verbalized understanding and thanked me for my call. in this encounter Plan of Treatment Not on fileas of this encounter Visit Diagnoses Not on filein this encounter
--- OUTSIDE RECORDS SUMMARY | 2017-06-15 14:23 | XMS REPORT | Encounter Summary ---
Author Author [facility] Organization [facility] Address Unknown Phone Unavailable Care Team Providers Care Industrial Insulator Name Role Phone Apoorva Shane MD Unavailable Edgardo Torres MD Unavailable mAanda Bhandari Unavailable Montana Villasenor MD Unavailable Gilles Ness MD Unavailable Rain Tariq MD Unavailable Harika Hsu MD Unavailable Nayana Mccarty RN Unavailable Unavailable Symone Lee Unavailable Unavailable Sukumar Mondragon APRN PCP Encounter Details Date Type Department Care Team Description 06/13/2017 Pharmacy Visit [facility] [address] [place] [address] Social History Tobacco Use Types [...]
--- OUTSIDE RECORDS SUMMARY | 2017-06-15 14:24 | XMS REPORT | Encounter Summary ---
Author Author [facility] Organization [facility] Address Unknown Phone Unavailable Care Team Providers Care Bending Shed Worker Name Role Phone Apoorva Shane MD Unavailable Edgardo Torers MD Unavailable Amanda Bhandari Unavailable Montana Villasenor MD Unavailable Gilles Ness MD Unavailable Rain Tariq MD Unavailable Harika Hsu MD Unavailable Nayana Mccarty RN Unavailable Unavailable Symone Lee Unavailable Unavailable uSkumar Mondragon APRN PCP Reason for Visit * Reason Comments General Question Encounter Details Date Type Department Care Team Description 05/29/2017 Telephone [facility] Balbian Garcia MD General Question Physicians - Urology [address] [facility] [address] FLOOR [address] [place] [address] [facility] [place] [address] OFFICE BLDG [phone] [place] [address] Social History Tobacco Use Types Packs/Day Years Used Date Former Smoker Cigarettes 42 Quit: 05/29/2015 Smokeless Tobacco: Never Used Alcohol Use Drinks/Week oz/Week Comments No 0 Standard 0.0 drinks or equivalent Sex Assigned at Date Recorded Not on file as of this encounter Miscellaneous Notes * Telephone Encounter - Baltazar Alfred LPN - 05/29/2017 8:32 AM MOTOR HOTEL MANAGER Pt having surgery 06/13/17. Needs clearance from Dr. Olivo, regarding pt being on eliquis. Dr. Garcia told her she would like her off it for at least [address] Olivo office . Pt stated that she called his office and they said our office needs to call him. in this encounter Plan of Treatment Not on fileas of this encounter Visit Diagnoses Not on filein this encounter
--- OUTSIDE RECORDS SUMMARY | 2017-06-15 14:24 | XMS REPORT | Encounter Summary ---
Author Author [facility] Organization [facility] Address Unknown Phone Unavailable Care Team Providers Care Hip Hop Dance Instructor Name Role Phone Apoorva Shane MD Unavailable Edgardo Torres MD Unavailable Amanda Bhandair Unavailable Montana Villasenor MD Unavailable Gilles Ness MD Unavailable Rain Tariq MD Unavailable Harika Hsu MD Unavailable Nayana Mccarty RN Unavailable Unavailable Symone eLe Unavailable Unavailable Sukumar Mondragon APRN PCP Reason for Referral * Consult, Test & Treat Status Reason Specialty Diagnoses / Referred By Referred To Procedures Contact Contact New Request Specialty Cardiology Diagnoses Marcello Garcia Card [facility] Services Urinary MD Balbina [address] Required obstruction [address]op [address] [place] [address] Phone: Reason for Visit * Reason Comments General Question Encounter Details Date Type Department Care Team Description 05/30/2017 Telephone [facility] Balbina Garcia MD General Question Physicians - Urology [address] FLO[address] POD A [address] [place] [address] OFFICE BLDG [phone] [place] [address] Social History Tobacco Use Types Packs/Day Years Used Date Former Smoker Cigarettes 40 Quit: 05/29/2015 Smokeless Tobacco: Never Used Alcohol Use Drinks/Week oz/Week Comments No 0 Standard 0.0 drinks or equivalent Sex Assigned at Date Recorded Not on file as of this encounter Miscellaneous Notes * Telephone Encounter - Joleen Hsu LPN - 05/30/2017 11:20 AM PASTOR Preop clearance Faxed to [phone], Dr. Olivo's office. in this encounter Plan of Treatment Name Priority Associated Diagnoses Order Schedule AMB REFERRAL TO ADULT CARDIOLOGY Routine Urinary obstruction Ordered: as of this encounter Visit Diagnoses Diagnosis Urinary obstruction - Primary Urinary obstruction, unspecified
--- OUTSIDE RECORDS SUMMARY | 2017-06-15 14:24 | XMS REPORT | Encounter Summary ---
Author Author [facility] Organization [facility] Address Unknown Phone Unavailable Care Team Providers Care Green Meat Grader Name Role Phone Apoorva Shane MD Unavailable Edgardo Torres MD Unavailable Amanda Bhandari Unavailable Montana Villasenor MD Unavailable Gilles Ness MD Unavailable Rain Tariq MD Unavailable Harika Hsu MD Unavailable Nayana Mccarty RN Unavailable Unavailable Symone Lee Unavailable Unavailable Sukumar Mondragon APRN PCP Encounter Details Date Type Department Care Team Description 06/04/2017 PAC Office Preoperative Assessment Balbina Garcia MD Atrial fibrillation, Visit Clinic [address] unspecified type (HCC) [address] (Primary Dx); [place] [address] [place] [address] Hypertension, unspecified [phone] type Anesthesia Record Procedure Name Responsible Anesthesia Start Time Anesthesia Stop Time Anesthesiologist URETHROLYSIS, INCISION OF Tone Fregoso MD 06/13/17 0726 06/13/17 0900 URETHRAL SLING, CYSTOSCOPY (N/A Vagina ) Date Time Event Comment 719 AN Equip Check 2017 0726 Anes Start 0726 An Start Data 0732 An Induction The patient was reevaluated immediately before moderate or deep sedation use and before anesthesia induction. 0733 An Intubation 0737 Anesthesia Ready 0740 Antibiotic Given 0759 Proc Start 0839 Quick Note 5 ml indigo carmine 0857 An Extubation LMA removed with pt spont breathing, follows commands , Dr. Chris fregoso present 0859 an stop data 0859 Handoff to RN I completed my SBAR handoff to the receiving nurse. All questions answered, pt alert with appropriate conversation in PACU 0900 An Stop Meds * No agents on file. * No blood administrations on file. Type [...] by ER resident, Dr. Chris Yusuf, ABA Yusuf, ABA Fregoso present); 1 insertion attempt; Auscultation, End-tidal CO2; [...] Vital Sign Reading Time Taken Blood Pressure 104/56 06/04/2017 7:21 AM BACKWINDER Pulse 73 06/04/2017 7:21 AM BACKWINDER Temperature 36.6 C (97.9 F) 06/04/2017 7:21 AM BACKWINDER Respiratory Rate - - Oxygen Saturation 95% 06/04/2017 8:50 AM BACKWINDER Inhaled Oxygen - - Concentration Weight 70.8 kg (156 lb) 06/04/2017 7:21 AM BACKWINDER Height 160 cm (5' 3") 06/04/2017 7:21 AM BACKWINDER Body Mass Index 27.63 06/04/2017 7:21 AM BACKWINDER in this encounter Instructions * Pre-Anesthesia Patient Instructions - Mary Hoff RN - 06/04/2017 7:57 AM BACKWINDER GENERAL INFORMATION Before you come to the hospital Make arrangements for a responsible adult to drive you home and stay with you for 24 hours following surgery. Bath/Shower Instructions Take a bath or shower using the special soap given to you in PAC. Use half the bottle the night before, and the other half the morning of your procedure. Use clean towels with each bath or shower. Put on clean clothes after bath or shower. Avoid using lotion and oils. If you are having surgery above the waist, wear a shirt that fastens up the front. Leave money, credit cards, jewelry, and any other valuables at home. [facility] is not responsible for the loss or breakage of personal items. Remove nail pashto, makeup and all jewelry (including piercings) before coming to the hospital. The morning of your procedure: brush your teeth and tongue do not smoke do not shave the area where you will have surgery What to bring to the hospital ID/ Insurance Card Small bag with a few personal belongings Walker,cane, or motorized scooter Cases for glasses/hearing aids/contact lens (bring solutions for contacts) Dress in clean, loose, comfortable clothing Eating or drinking before surgery Do not eat or drink anything after 11:00 p.m. the day before your procedure ( including gum, mints, candy, or chewing tobacco) OR follow the specific instructions you were given by your Surgeon. You may have WATER ONLY up to 2 hours before arriving at the hospital. Other instructions Notify your surgeon if: you become ill with a cough, fever, sore throat, nausea, vomiting or flu- like symptoms you have any open wounds/sores that are red, painful, draining, or are new since you last saw the doctor you need to cancel your procedure Notify us at [facility]: if you need to cancel your procedure if you are going to be late You will receive your arrival time from your surgeon or from the Preoperative Assessment Clinic the afternoon before your procedure. If your procedure is scheduled for a Friday, you will be notified the prior Friday afternoon. If you have not been contacted between 2:30 and 4pm on the last business day before your procedure, call the Preoperative Assessment Clinic to confirm your arrival time. Before 4:30pm, call [phone]. After 4:30pm call . Arrival at the hospital Main Hospital: Park in the Parking Garage, located directly across from the main entrance to the hospital. [employer] parking is available from 7 AM to 4 PM Friday through Friday. Validate your parking ticket at the Information Desk in the hospital lobby. Proceed to Admissions located across the lobby from the Information Desk. * Pre-Anesthesia Medication Instructions - Jt Fregoso, PHARMD - 06/04/2017 7 :33 AM BACKWINDER Formatting of this note may be different from the original. YOUR MEDICATIONS: albuterol (VENTOLIN HFA) 90 mcg/actuation inhaler Inhale 2 puffs by mouth into the lungs daily. Shake well before use. alendronate (FOSAMAX) 70 mg tablet Take 70 mg by mouth every 7 days. apixaban (ELIQUIS) 5 mg tab tablet Take 5 mg by mouth twice daily. baclofen (LIORESAL) 20 mg tablet Take 20 mg by mouth three times daily. benztropine (COGENTIN) 0.5 mg tablet Take 0.5 mg by mouth twice daily. budesonide/formoterol (SYMBICORT) 160/4.5 mcg HFAA inhalation Inhale 2 Puffs by mouth daily. calcium carbonate (OS-DEAN) 1250 mg tablet Take 1,250 mg by mouth daily. colesevelam(+) (WELCHOL) 625 mg tablet Take 1,875 mg by mouth twice daily with meals. diltiazem CD (CARDIZEM CD) 240 mg capsule Take 240 mg by mouth daily. diphenoxylate/atropine (LOMOTIL) 2.5/0.025 mg tablet Take 2 tablets by mouth four times daily as needed for Diarrhea. donepezil (ARICEPT) 10 mg tablet Take 10 mg by mouth At Bedtime Daily. ergocalciferol (VITAMIN D-2) 50,000 unit capsule Take 1 capsule by mouth every 7 days. Sundays estradiol (ESTRACE) 0.01 % (0.1 mg/g) vaginal cream Insert or Apply to vaginal area every 7 days. fluticasone (FLONASE) 50 mcg/actuation nasal spray Apply 1-2 sprays to each nostril as directed daily as needed. Shake bottle gently before using. gabapentin (NEURONTIN) 600 mg tablet Take 600 [...] Take 150 mg by mouth at bedtime daily. trospium(+) (SANCTURA) 20 mg tablet Take 1 tablet by mouth three times daily before meals. YOUR MEDICATION INSTRUCTIONS FOR SURGERY: Before surgery Stop the following vitamins, herbals, and natural supplements 14 days before surgery: Multivitamin Stop the following medications 7 days before surgery: Anti-inflammatory medications such as ibuprofen (Advil, Motrin) and naproxen (Aleve) You may use acetaminophen (Tylenol) Please follow these instructions regarding your blood thinner medications: Eliquis - hold for 7 days as instructed by Dr. Garcia. Last dose and stop taking 06/06. We will call if this changes. Morning of surgery On the morning of surgery, do NOT take these medications: Remaining vitamins/supplements Ointments/creams/lotions Xifaxan (rifaximin) Welchol Lomotil On the morning of surgery, take ONLY these medications with a sip (1-2 ounces) of water: Diltiazem Metoprolol Use inhalers and nasal sprays as usual Trospium Primidone Pantoprazole Gabapentin Hydroxyzine Benztropine Baclofen Other information Before surgery, please contact the clinic pharmacist with any medicine updates or questions. E-mail: [email or web address] Before going home from the hospital, please ask your doctor when you should re- start your medicines that were stopped before surgery. in this encounter Progress Notes * Jt Fregoso PHARMD - 06/04/2017 8:00 AM [facility] PAC Anticoagulant Plan Note: Nara Huizar was seen in the PAC on 06/04/17. As part of the visit, an accurate medication list was obtained and the patient was given pre-op medication instructions for upcoming surgery on 06/13/17. Per clearance letter from the patient's spout tender Dr. Osborn, the patient should hold apixaban for 7 days prior to surgery. The patient will take the last dose of apixaban on 06/05/17. The plan above was communicated to the patient and they verbalized understanding. Jt Fregoso PHARMD in this encounter Plan of Treatment Name Priority Associated Diagnoses Order Schedule ECG 12-LEAD Routine Atrial fibrillation, ONE TIME for 1 unspecified type (HCC) Occurrences starting Hypertension, unspecified 06/04/2017 until type 06/04/2017 as of this encounter Visit Diagnoses Diagnosis Atrial fibrillation, unspecified type (HCC) - Primary Hypertension, unspecified type
--- OUTSIDE RECORDS SUMMARY | 2017-06-15 14:24 | XMS REPORT | Encounter Summary ---
Author Author [facility] Organization [facility] Address Unknown Phone Unavailable Care Team Providers Care Bushel Worker Name Role Phone Apoorva Shane MD Unavailable Edgardo Torres MD Unavailable Amanda Bhandari Unavailable Montana Villasenor MD Unavailable Gilles Ness MD Unavailable Rain Tariq MD Unavailable Harika Hsu MD Unavailable Nayana Mccarty RN Unavailable Unavailable Symone Lee Unavailable Unavailable Sukumar Mondragon APRN PCP Reason for Visit * Reason Comments Results Encounter Details Date Type Department Care Team Description 05/30/2017 Telephone [facility] Alvaro Duval MD Results Physicians - Internal [address] [facility] Medicine [address] [place] [address] [address] [facility] [phone] [place] [address] Social History Tobacco Use Types Packs/Day Years Used Date Former Smoker Cigarettes 40 Quit: 05/29/2015 Smokeless Tobacco: Never Used Alcohol Use Drinks/Week oz/Week Comments No 0 Standard 0.0 drinks or equivalent Sex Assigned at Date Recorded Not on file as of this encounter Miscellaneous Notes * Telephone Encounter - Rae Haro RN - 05/30/2017 10:38 AM SOFTWARE ENGINEERING ASSOCIATE MANAGER Ms. Huizar notified of below results. BMP, urine osmo and urine sodium lab orders faxed to [facility] in [place] (fax [phone], office [phone]) per pt request. * Telephone Encounter - Rae Haro RN - 05/30/2017 10:29 AM SOFTWARE ENGINEERING ASSOCIATE MANAGER 1028: Lvm to return call to clinic. * Telephone Encounter - Rae Haro RN - 05/30/2017 10:28 AM SOFTWARE ENGINEERING ASSOCIATE MANAGER ----- Message from Alvaro Duval MD sent at 05/30/2017 10:11 AM SOFTWARE ENGINEERING ASSOCIATE MANAGER ----- Miracle I looked at the labs of Mrs. Huizar. She needs to make more effort with her diet. She needs to increase protein, salt intake and limit water (to 1.5 lt). She should repeat a bmp, urine osmo and urine sodium in 1 week. Thanks, Alvaro ----- Message ----- From: Interface, In Results Misys Sent: 05/28/2017 10:51 AM To: Alvaro Duval MD in this encounter Plan of Treatment Name Priority Associated Diagnoses Order Schedule SODIUM-URINE RANDOM Routine Hyponatremia Expected: 06/06/2017 (Approximate), Expires: 05/30/2018 OSMOLALITY-URINE RANDOM Routine Hyponatremia Expected: 06/06/2017 (Approximate), Expires: 05/30/2018 BASIC METABOLIC PANEL Routine Hyponatremia Expected: 06/06/2017 (Approximate), Expires: 05/30/2018 as of this encounter Visit Diagnoses Diagnosis Hyponatremia - Primary Hyposmolality and/or hyponatremia
--- OUTSIDE RECORDS SUMMARY | 2017-06-15 14:24 | XMS REPORT | Encounter Summary ---
Author Author [facility] Organization [facility] Address Unknown Phone Unavailable Care Team Providers Care Geothermal Installer Name Role Phone Apoorva Shane MD Unavailable [...] Contact Diagnoses Urinary obstruction unknown P rocedures WI RMVL/REVJ SLING STRESS INCONTINENCE REVISION/REMOVAL VAGINAL SLING Encounter Details Date Type Department Care Team Description 06/13/2017 Hospital Main Operating Room Balbina Garcia MD Urinary obstruction Encounter [address] [facility] [address] [place] [address] [address] [place] [address] Social History Tobacco Use Types Packs/Day Years Used Date Former Smoker Cigarettes 0.25 46 Smokeless Tobacco: Never Used Alcohol Use Drinks/Week oz/Week Comments No 0 Standard 0.0 drinks or equivalent Sex Assigned at Date Recorded Not on file as of this encounter Last Filed Vital Signs Vital Sign Reading Time Taken Blood Pressure 107/68 06/13/2017 10:15 AM ASSOCIATE MERCHANDISE PLANNER Pulse 89 06/13/2017 10:15 AM ASSOCIATE MERCHANDISE PLANNER Temperature 36.4 C (97.5 F) 06/13/2017 10:15 AM ASSOCIATE MERCHANDISE PLANNER Respiratory Rate - - Oxygen Saturation 94% 06/13/2017 10:15 AM ASSOCIATE MERCHANDISE PLANNER Inhaled Oxygen - - Concentration Weight 68.1 kg (150 lb 2.1 oz) 06/13/2017 6:08 AM ASSOCIATE MERCHANDISE PLANNER Height 160 cm (5' 2.99") 06/13/2017 6:08 AM ASSOCIATE MERCHANDISE PLANNER Body Mass Index 26.6 06/13/2017 6:08 AM ASSOCIATE MERCHANDISE PLANNER in this encounter Medications at Time of [...] Leatha Langford RN - 06/13/2017 10:57 AM ASSOCIATE MERCHANDISE PLANNER 1050 - pt bladder scanned post void - 31ml - Dr. Sheridan notified. 1100 - pt cleared to go home per RN working with Dr. Sheridan * Lulu Rosales RN - 06/13/2017 10:47 AM ASSOCIATE MERCHANDISE PLANNER Patient's SpO2 > 95 % with 3L NC, which she reports she wears at home. While on room air, patient's sPO2 90-93%. Anesthesia notified at time of sign out. * Lulu Rosales RN - 06/13/2017 10:42 AM ASSOCIATE MERCHANDISE PLANNER Per orders, vaginal packing removed at approx. 1035 in PACU. 300 cc urine drained from cronin, 250 cc sterile water instilled into bladder via cronin. Cronin removed after sterile water instilled. Patient tolerated well. Transferred to phase II, hand off provided to Leatha Ozuna RN assuming care of patient. in this encounter H&P Notes * Balbina Garcia MD - 05/28/2017 8:45 AM ASSOCIATE MERCHANDISE PLANNER Formatting of this note may be different [...] one in 2014 COLONOSCOPY [place] SIGMOIDOSCOPY FLX DX W/COLLJ SPEC BR/WA IF PFRMD N/A 09/26/2015 SIGMOIDOSCOPY DIAGNOSTIC to rule out ulcerative colitis. performed by Edgardo Torres MD at [facility] [place] SIGMOIDOSCOPY FLX W/BIOPSY SINGLE/MULTIPLE 09/26/2015 SIGMOIDOSCOPY BIOPSY [...] this visit. Allergies Allergen Reactions Triple Antibiotic [Znufr-Hdtcc-Wdttnhj-Pramoxine] RASH Ibuprofen Social History Social History Marital [...] Judgment and thought content normal. Vitals reviewed. [id number] Assessment and Plan: Ilya Daniel MD PGY-3 Urology in this encounter Plan of Treatment Name Priority Associated Diagnoses Date/Time SURGICAL PATHOLOGY 06/13/2017 9:04 AM ASSOCIATE MERCHANDISE PLANNER Name Priority Associated Diagnoses Order Schedule SURGICAL PATHOLOGY Routine Urinary obstruction ONCE for 1 Occurrences starting 06/13/2017 as of this encounter Results * POC GLUCOSE (06/13/2017 9:05 AM) Component Value Ref Range Glucose, POC 98 70 - 100 MG/DL Specimen Performing Laboratory [facility] [address] [place] [address] * POC GLUCOSE (06/13/2017 6:25 AM) Component Value Ref Range Glucose, POC 110 (H) 70 - 100 MG/DL Specimen Performing Laboratory [facility] [address] [place] [address] in this encounter Visit Diagnoses Diagnosis Urinary obstruction Urinary obstruction, unspecified Admitting Diagnoses Diagnosis Urinary obstruction - unknown Urinary obstruction, unspecified Administered Medications Medication Order MAR Action Action Date Dose Rate Site fentaNYL citrate PF (SUBLIMAZE) Given 06/13/2017 50 mcg injection 25-50 mcg 09:09 ASSOCIATE MERCHANDISE PLANNER 25-50 mcg, Intravenous, EVERY 5 MIN PRN, Starting Fri06/13/17 at 0852, Until Fri06/13/17 at 1835, Pain Injectable, For Pain Score 7-10, Maximum total dose of 200 mcg Hold for RR < 10 Given 06/13/2017 50 mcg 09:17 ASSOCIATE MERCHANDISE PLANNER HYDROmorphone injection (DILAUDID) Given 06/13/2017 0.5 mg injection 0.5 mg 09:44 ASSOCIATE MERCHANDISE PLANNER 0.5 mg, Intravenous, ONCE, 1 dose, Fri06/13/17 at 0945, PACU (only) lactated ringers infusion Given - New 06/13/2017 1,000 mL 20 mL/hr 1,000 mL, 1,000 mL, Intravenous, at 20 Bag 06:20 ASSOCIATE MERCHANDISE PLANNER mL/hr, CONTINUOUS, Starting Fri06/13/17 at 0600, Until Fri06/13/17 at 1835, Pre-Op Given - New Bag 06/13/2017 08:44 ASSOCIATE MERCHANDISE PLANNER oxyCODONE (ROXICODONE, OXY-IR) tablet Given 06/13/2017 10 mg 5-10 mg 09:22 ASSOCIATE MERCHANDISE PLANNER 5-10 mg, Oral, ONCE PRN, 1 dose, Starting Fri06/13/17 at 0852, Until Fri06/13/17 at 2359, Pain PO, For Pain Score <4, PACU (only) water, sterile irrigation bottle Given 06/13/2017 Irrigation, ONCE, 1 dose, Fri06/13/17 at 10:51 ASSOCIATE MERCHANDISE PLANNER 1000, PACU (only) in this encounter
--- OUTSIDE RECORDS SUMMARY | 2017-06-15 14:24 | XMS REPORT | Encounter Summary ---
Author Author [facility] Organization [facility] Address Unknown Phone Unavailable Care Team Providers Care Printing Gray Cloth Tender Name Role Phone Apoorva Shane MD Unavailable Edgardo Torres MD Unavailable Amanda Bhandari Unavailable Montana Villasenor MD Unavailable Gilles Ness MD Unavailable Rain Tariq MD Unavailable Harika Hsu MD Unavailable Nayana Mccarty RN Unavailable Unavailable Symone Lee Unavailable Unavailable Sukumar Mondragon APRN PCP Reason for Visit * Reason Comments Medication Refill Encounter Details Date Type Department Care Team Description 06/10/2017 Refill [facility] Gilles Ness MD Physicians - [facility]BGYN [address] [place] [address] OFFICE BLDG [phone] [place] [address] Social History Tobacco Use Types [...]
--- OUTSIDE RECORDS SUMMARY | 2017-06-15 14:24 | XMS REPORT | Encounter Summary ---
Author Author [facility] Organization [facility] Address Unknown Phone Unavailable Care Team Providers Care Film Vault Supervisor Name Role Phone Apoorva Shane MD Unavailable Edgardo Torres MD Unavailable Amanda Bhandari Unavailable Montana Villasenor MD Unavailable Gilles Ness MD Unavailable Rain Tariq MD Unavailable Harika Hsu MD Unavailable Nayana Mccarty RN Unavailable Unavailable Symone Lee Unavailable Unavailable Sukumar Mondragon APRN PCP Encounter Details Date Type Department Care Team Description 05/29/2017 Documentation [facility] Balbina Garcia MD Physicians - Urology [address] [facility] [address] [place] [address] OFFICE [facility] [phone] [place] [address] Social History Tobacco Use Types [...]
--- OUTSIDE RECORDS SUMMARY | 2017-06-15 14:25 | XMS REPORT | Encounter Summary ---
Author Author [facility] Organization [facility] Address Unknown Phone Unavailable Care Team Providers Care Excavation Laborer Name Role Phone Apoorva Shane MD Unavailable Edgardo Torres MD Unavailable Amanda Bhandari Unavailable Montana Villasenor MD Unavailable Gilels Ness MD Unavailable Rain Tariq MD Unavailable Harika Hsu MD Unavailable Nayana Mccarty RN Unavailable Unavailable Symone Lee Unavailable Unavailable Sukumar Mondragon APRN PCP Encounter Details Date Type Department Care Team Description 05/20/2017 Hospital Clin[facility] Rain Tariq MD Urinary tract infection, Encounter [address] [place] [address] [address] [place] [address] [phone] Social History Tobacco Use Types Packs/Day Years [...] mouth (SYMBICORT) 160/4.5 mcg daily. HFAA inhalation colesevelam(+) (WELCHOL) Take 1,875 mg by mouth 625 mg tablet twice daily with meals. diltiazem CD (CARDIZEM Take 240 mg by mouth CD) 240 mg capsule daily. diphenoxylate/atropine Take 2 tablets by mouth (LOMOTIL) 2.5/0.025 mg four times daily as tablet needed for Diarrhea. donepezil (ARICEPT) 10 mg Take 10 mg by mouth At tablet Bedtime Daily. gabapentin (NEURONTIN) Take 600 mg by mouth 600 mg tablet three times daily. lamoTRIgine (LAMICTAL) 25 Take 25 [...] by mouth (PROTONIX) 40 mg tablet daily. primidone (MYSOLINE) [...] mg tablet three times daily before meals. ALPRAZolam (XANAX) 1 mg Take 1 mg by mouth as 06/04/2017 tablet Needed. CALCIUM PO Take 600 mg by mouth. 06/04/2017 CETIRIZINE HCL (ZYRTEC Take by mouth. 06/04/2017 PO) ciprofloxacin (CIPRO) 500 Take 1 tablet by mouth 2 tablet 0 201705/21/2017 mg tablet twice daily for 1 day. CLONAZEPAM PO Take by mouth at bedtime 06/04/2017 as needed. ERGOCALCIFEROL (VITAMIN Take 50,000 Units by 06/04/2017 D2) (VITAMIN D PO) mouth every 7 days. FLUTICASONE PROPIONATE Insert into nose as 06/04/2017 (FLONASE NA) directed. hydrOXYzine (ATARAX) 25 Take 25 mg by mouth three 06/04/2017 mg tablet times daily as needed for Itching. mirtazapine (REMERON) 45 Take 45 mg by mouth at 06/04/2017 mg tablet bedtime daily. as of this encounter Plan of Treatment Not on fileas of this encounter Results * CULTURE-URINE W/SENSITIVITY (05/20/2017 3:00 PM) Component Value Ref Range Battery Name URINE CULTURE Specimen Description URINE, STRAIGHT CATH Special Requests NONE Culture NO GROWTH Report Status FINAL 05/21/2017 Specimen Performing Laboratory U[facility] Stra[facility] [address] [place] [address] in this encounter Visit Diagnoses Diagnosis Urinary tract infection Urinary tract infection, site not specified Admitting Diagnoses Diagnosis Urinary tract infection, site not specified
--- OUTSIDE RECORDS SUMMARY | 2017-06-15 14:25 | XMS REPORT | Encounter Summary ---
Author Author [facility] Organization [facility] Address Unknown Phone Unavailable Care Team Providers Care Jewel Waxer Name Role Phone Apoorva Shane MD Unavailable Edgardo Torres MD Unavailable Amanda Bhnadari Unavailable Montana Villasenor MD Unavailable Gilles Ness MD Unavailable Rain Tariq MD Unavailable Harika Hsu MD Unavailable Nayana Mccarty RN Unavailable Unavailable Symone Lee Unavailable Unavailable Sukumar Mondragon APRN PCP Reason for Visit * Reason Comments Urinary Retention Urinary Frequency Encounter Details Date Type Department Care Team Description 05/28/2017 Office Visit [facility] Balbina Garcia MD Urge incontinence of Physicians - Urology [address] urine (Primary Dx); 2ND FLOOR POD A [place] [address] Urinary obstruction [address] [place] [address] OFFICE BLDG [phone] [place] [address] Social History Tobacco Use Types Packs/Day Years Used Date Former Smoker Cigarettes 40 Quit: 05/29/2015 Smokeless Tobacco: Never Used Alcohol Use Drinks/Week oz/Week Comments No 0 Standard 0.0 drinks or equivalent Sex Assigned at Date Recorded Not on file as of this encounter Last Filed Vital Signs Vital Sign Reading Time Taken Blood Pressure 119/66 05/28/2017 8:58 AM REAL ESTATE SPECIALIST Pulse 79 05/28/2017 8:58 AM REAL ESTATE SPECIALIST Temperature - - Respiratory Rate - - Oxygen Saturation - - Inhaled Oxygen - - Concentration Weight 71.4 kg (157 lb 6.4 oz) 05/28/2017 8:58 AM REAL ESTATE SPECIALIST Height 160 cm (5' 3") 05/28/2017 8:58 AM REAL ESTATE SPECIALIST Body Mass Index 27.88 05/28/2017 8:58 AM REAL ESTATE SPECIALIST in this encounter Instructions * Patient Instructions - Baltazar Alfred LPN - 05/28/2017 8:45 AM REAL ESTATE SPECIALIST [facility] Physicians - Urology Pre-Operative Instructions Surgical Procedure: Urethrolysis, Incision of urethral Sling and Cystoscopy Date of Surgery: 06/13/17 Arrival Time at the Admission Office (Main Lobby): Will Call To ensure that your surgery can proceed without delay, you will be contacted by a phone triage nurse from the Preoperative Assessment Clinic (PAC) to complete this process. Please review the information given to you by your surgeon. You will be called by the surgery staff with your day of surgery arrival time between 2:30 - 4:30 PM the business day prior to surgery. If you have not heard from them after 4:30 PM, please call to confirm your arrival time. Pre-Operative Assessment and Instructions: Once you speak to the nurse or are seen in the Pre-Operative Assessment Clinic, you will be given medication instructions. However, if surgery is within 2 weeks , please read and follow the medication instructions below to prepare for surgery before you speak with the phone triage nurse: 14 days prior to surgery: ? Contact your doctor who prescribes any of the following to develop a plan for surgery: o Blood thinners such as aspirin, Aggrenox, Brilinta, Effient, Eliquis, enoxaparin (Lovenox), clopidogrel (Plavix), cilostazol, pentoxifylline (Trental) , Pradaxa, Savaysa, ticlopidine, Xarelto, and warfarin (Coumadin) o Immunosuppresants such as methotrexate, azathioprine, sulfasalazine, everolimus, sirolimus, Humira, Remicade, Enbrel, Simponi, Orencia, Cimzia, Actemra, and Xeljanz o Chemotherapy ? Stop most vitamins, herbals, and supplements including (but not limited to): o Alpha lipoic acid, black cohosh, CoQ10, echinacea, eye vitamins, fish oil, flaxseed oil, garlic, gingko biloba, ginseng, glucosamine/chondroitin, kava, Lovaza, lutein, lysine, multivitamin, red yeast rice, SOLO-e, saw palmetto, Bartholomew wort, turmeric, valerian root, Vascepa, Vitamin A, Vitamin B complex, Vitamin C, Vitamin E ? You DO NOT need to stop: iron, magnesium, potassium 7 days prior to surgery: ? Stop anti-inflammatory medications such as ibuprofen (Advil, Motrin), naproxen (Aleve), Tiana-[place], Excedrin, Midol, celecoxib (Celebrex), diclofenac (Voltaren), diflunisal, etodolac, flurbiprofen, indomethacin, ketoprofen, ketorolac, meloxicam, nabumetone, and piroxicam Do not drink alcohol within 24 hours of surgery. Please do not eat or drink anything after midnight. No gum, mints, hard candy, snacks, coffee, etc or chewing tobacco allowed after midnight before surgery. You may brush your teeth but be sure to rinse and spit. Please shower with an over the counter antibacterial soap the evening before or the morning of surgery. If your surgery is scheduled as an outpatient, you must arrange to have someone drive you home and have someone with you 24 hours after anesthesia. If you have any questions, please contact your provider's office at . For emergencies during evenings, nights, weekends, and holidays, contact [facility] dry house operator and request they contact the on-call Urology Resident at [phone]. Fingertip Application Method For Estrogen Cream 1. Wash your hands with soap and water and dry thoroughly. 2. Squeeze tube to express out 1 gram of cream (about enough to cover the tip of your index finger, from the last joint to the finger tip. (see Figure 1) Figure 1 This instruction sheet is provided to help your practitioner explain his/her preferred method for applying estrogen cream. Your doctor or nurse will likely use this sheet to assist in their patient education activities. Please note that this information is not intended to replace your practitioners instructions: always follow your doctors specific directions regarding the use of any prescription medications 3. Locate the vaginal opening (see Figure 2). Immediately above the vaginal opening is the urethra (a small opening where urine is eliminated from you body) . The urethra may not be as easily identified as the vagina because the opening is much smaller, however, us the diagram to determine its approximate location. 4. Carefully spread the cream onto the top wall of the vagina just underneath the urethral area (see Figure 2, yellow highlighted area). As the cream is spread, some may be gently inserted into the vagina: however, it is not necessary to push the cream high into the vagina. Rub this into the vaginal wall underneath the urethra as one would rub lotion into the skin. 5. Do not use the applicator that may come with the prescription for the estrogen cream. Use only the small finger tip amount as noted above. Figure 2 in this encounter Progress Notes * Baltazar Alfred LPN - 05/28/2017 8:45 AM REAL ESTATE SPECIALIST PVR:140 ML * Balbina Garcia MD - 05/28/2017 8:45 AM REAL ESTATE SPECIALIST Formatting of this note may be different [...] one in 2014 COLONOSCOPY [place] SIGMOIDOSCOPY FLX DX W/COLLJ SPEC BR/WA IF PFRMD N/A 09/26/2015 SIGMOIDOSCOPY DIAGNOSTIC to rule out ulcerative colitis. performed by Edgardo Torres MD at ENDO/GI SD SIGMOIDOSCOPY FLX W/BIOPSY SINGLE/MULTIPLE 09/26/2015 SIGMOIDOSCOPY BIOPSY [...] this visit. Allergies Allergen Reactions Triple Antibiotic [[id number]-Pramoxine] RASH Ibuprofen Social History Social History Marital [...] Judgment and thought content normal. Vitals reviewed. [id number] Assessment and Plan: Ilya Daniel MD PGY-3 Urology in this encounter Plan of Treatment Not on fileas of this encounter Results * CULTURE-URINE W/SENSITIVITY (05/28/2017 9:30 AM) Component Value Ref Range Battery Name URINE CULTURE Specimen Description URINE, CLEAN CATCH Special Requests NONE Culture NO GROWTH Report Status FINAL 05/29/2017 Specimen Performing Laboratory Urine - Urine,Clean Catch [facility] [address] [place] [address] * POC URINE DIPSTICK MANUAL READ (05/28/2017) Component Value Ref Range Urine Glucose POC NEG Urine Bilirubin POC NEG Urine Ketone POC NEG Urine Specific Pavo 1.000 POC Urine Blood POC TRACE Urine PH POC 5.0 Urine Protein POC NEG Urine Urobilinogen POC 0.2 Urine Nitrite POC NEG Urine Leukocytes POC NEG Color,UA YELLOW Turbidity,UA CLEAR Specimen Performing Laboratory Urine IN CLINIC in this encounter Visit Diagnoses Diagnosis Urge incontinence of urine - Primary Urge incontinence Urinary obstruction Urinary obstruction, unspecified
--- OUTSIDE RECORDS SUMMARY | 2017-06-15 14:25 | XMS REPORT | Encounter Summary ---
Author Author [facility] Organization [facility] Address Unknown Phone Unavailable Care Team Providers Care Supervisor Record Press Name Role Phone Apoorva Shane MD Unavailable Edgardo Torres MD Unavailable Amanda Bhandari Unavailable Montana Villasenor MD Unavailable Gilles Ness MD Unavailable Rain Tariq MD Unavailable Harika Hsu MD Unavailable Nayana Mccarty RN Unavailable Unavailable Symone Lee Unavailable Unavailable Sukumar Mondragon APRN PCP Encounter Details Date Type Department Care Team Description 05/28/2017 Prep for Case [facility] Balbina Garcia MD Urinary obstruction Physicians - Urology [address] (Primary Dx); 2ND FLOOR POD A [address] Bleeding tendency (HCC) [address] [place] [address] OFFICE BLDG [phone] [place] [address] Social History Tobacco Use Types Packs/Day Years Used Date Former Smoker Cigarettes 40 Quit: 05/29/2015 Smokeless Tobacco: Never Used Alcohol Use Drinks/Week oz/Week Comments No 0 Standard 0.0 drinks or equivalent Sex Assigned at Date Recorded Not on file as of this encounter Plan of Treatment Not on fileas of this encounter Results * PTT (APTT) (05/28/2017 10:02 AM) Component Value Ref Range APTT 29.9 21.0 - 39.0 SEC Specimen Performing Laboratory MAIN LAB [address] [place] [address] * PROTIME INR (PT) (05/28/2017 10:02 AM) Component Value Ref Range INR 1.0 0.8 - 1.2 Specimen Performing Laboratory MAIN LAB [address] [place] [address] in this encounter Visit Diagnoses Diagnosis Urinary obstruction - Primary Urinary obstruction, unspecified Bleeding tendency (HCC) Unspecified hemorrhagic conditions
--- OUTSIDE RECORDS SUMMARY | 2017-06-15 14:25 | XMS REPORT | Encounter Summary ---
Author Author [facility] Organization [facility] Address Unknown Phone Unavailable Care Team Providers Care Stopper Maker Name Role Phone Apoorva Shane MD Unavailable Edgardo Torres MD Unavailable Amanda Bhandari Unavailable Montana Villasenor MD Unavailable Gilles Ness MD Unavailable Rain Tariq MD Unavailable Harika Hsu MD Unavailable Nayana Mccarty RN Unavailable Unavailable Syomne Lee Unavailable Unavailable Sukumar Mondragon APRN PCP Encounter Details Date Type Department Care Team Description 05/28/2017 Hospital [facility] Balbina Garcia MD Urge incontinence Encounter [address] [facility] [place] [facility]. [address] [place] [address] [address] [place] [address] [phone] Social History Tobacco Use Types Packs/Day Years [...] mg by mouth At tablet Bedtime Daily. estradiol (ESTRACE) 0.01 Insert or Apply to 42.5 g 11 05/28/2017 % (0.1 mg/g) vaginal vaginal area every 7 cream days. gabapentin (NEURONTIN) Take 600 mg by mouth 600 mg tablet three times daily. HYDROcodone/acetaminophen Take 1 tablet by mouth 20 tablet 0 2017 (NORCO) 5/325 mg tablet every 4 hours as needed for Pain lamoTRIgine (LAMICTAL) 25 Take 25 mg by [...] mg by mouth as 06/04/2017 tablet Needed. budesonide/formoterol Inhale by mouth into the 05/22/2017 06/04/2017 (SYMBICORT HFA) 160/4.5 lungs. mcg inhalation CALCIUM PO Take 600 mg by mouth. 06/04/2017 cephalexin (KEFLEX) 500 Take 500 mg by mouth four 06/04/2017 mg capsule times daily. CETIRIZINE HCL (ZYRTEC Take by mouth. 06/04/2017 PO) CLONAZEPAM PO Take by mouth at bedtime 06/04/2017 as needed. doxycycline (VIBRAMYCIN) Take 100 mg by mouth 06/04/2017 100 mg tablet twice daily. ERGOCALCIFEROL (VITAMIN Take 50,000 Units by 06/04/2017 [...] Specimen Performing Laboratory Urine - Urine,Clean Catch [facility] [address] [place] [address] * SODIUM-URINE RANDOM (05/28/2017 9:30 AM) Component Value Ref Range Sodium, Random 35 MMOL/L Specimen Performing Laboratory Urine [facility] [address] [place] [address] * OSMOLALITY-URINE RANDOM (05/28/2017 9:30 AM) Component Value Ref Range Osmolality-Urine 193 50 - 1,400 MOS/KG Specimen Performing Laboratory Urine [facility] [address] [place] [address] in this encounter Visit Diagnoses Diagnosis Hyponatremia Hyposmolality and/or hyponatremia Urge incontinence of urine Urge incontinence Admitting Diagnoses Diagnosis Urge incontinence
--- OUTSIDE RECORDS SUMMARY | 2017-06-15 14:25 | XMS REPORT | Encounter Summary ---
Author Author [facility] Organization [facility] Address Unknown Phone Unavailable Care Team Providers Care Compensation Coordinator Name Role Phone Apoorva Shane MD Unavailable Edgardo Torres MD Unavailable Amanda Bhandari Unavailable Montana Villasenor MD Unavailable Gilles Ness MD Unavailable Rain Tariq MD Unavailable Harika Hus MD Unavailable Nayana Mccarty RN Unavailable Unavailable Symone Lee Unavailable Unavailable Sukumar Mondragon APRN PCP Encounter Details Date Type Department Care Team Description 05/28/2017 Hospital Clin[facility] Balbina Garcia MD Hemorrhagic condition, Encounter [address] unspecified ([place]) [place] [address] [address] [place] [address] [phone] Social History Tobacco Use Types Packs/Day Years [...] 21.0 - 39.0 SEC Specimen Performing Laboratory [facility] [address] [place] [address] * PROTIME INR (PT) (05/28/2017 10:02 AM) Component Value Ref Range INR 1.0 0.8 - 1.2 Specimen Performing Laboratory [facility] [address] [place] [address] * BASIC METABOLIC PANEL (05/28/2017 10:02 AM) [...] Specimen Performing Laboratory Blood MAIN LAB [address] [place] [address] in this encounter Visit Diagnoses Diagnosis Hyponatremia Hyposmolality and/or hyponatremia Bleeding tendency (HCC) Unspecified hemorrhagic conditions Urinary obstruction Urinary obstruction, unspecified Admitting Diagnoses Diagnosis Hemorrhagic condition, unspecified (HCC) Hemorrhagic condition, unspecified
--- OUTSIDE RECORDS SUMMARY | 2017-06-15 14:25 | XMS REPORT | Encounter Summary ---
Author Author [facility] Organization [facility] Address Unknown Phone Unavailable Care Team Providers Care Looper Operator Name Role Phone Apoorva Shane MD Unavailable Edgardo Torres MD Unavailable Amanda Bhandari Unavailable Montana Villasenor MD Unavailable Gilles Ness MD Unavailable Rain Tariq MD Unavailable Harika Hsu MD Unavailable Nayana Mccarty RN Unavailable Unavailable Symone Lee Unavailable Unavailable Sukumar Mondragon APRN PCP Reason for Visit * Reason Comments Results Encounter Details Date Type Department Care Team Description 05/23/2017 Telephone [facility] Rain Tariq MD Results Physicians - [facility]BGYN [address] [facility] [address] [address] [facility] [place] [address] OFFICE BLDG [phone] [place] [address] Social History Tobacco Use Types Packs/Day Years Used Date Former Smoker Cigarettes 40 Quit: 05/29/2015 Smokeless Tobacco: Never Used Alcohol Use Drinks/Week oz/Week Comments No 0 Standard 0.0 drinks or equivalent Sex Assigned at Date Recorded Not on file as of this encounter Miscellaneous Notes * Telephone Encounter - Sol Yanes - 05/23/2017 3:24 PM DRUG SAFETY DATA MANAGEMENT SPECIALIST LVM notifying patient of negative culture results. Advised to call back with any further questions or concerns. * Telephone Encounter - Roxy Yanesn - 05/23/2017 3:22 PM DRUG SAFETY DATA MANAGEMENT SPECIALIST ----- Message from Rain Tariq MD sent at 05/23/2017 1:56 PM DRUG SAFETY DATA MANAGEMENT SPECIALIST ----- Negative urine culture. Please contact patient with normal results. in this encounter Plan of Treatment Not on fileas of this encounter Visit Diagnoses Not on filein this encounter
--- OUTSIDE RECORDS SUMMARY | 2017-06-15 14:26 | XMS REPORT | Encounter Summary ---
Author Author [facility] Organization [facility] Address Unknown Phone Unavailable Care Team Providers Care Harness Racing Handicapper Name Role Phone Apoorva Shane MD Unavailable Edgardo Torres MD Unavailable Amanda Bhandari Unavailable Montana Villasenor MD Unavailable Gilles Ness MD Unavailable Rain Tariq MD Unavailable Harika Hsu MD Unavailable Nayana Mccarty RN Unavailable Unavailable Symone Lee Unavailable Unavailable Sukumar Mondragon APRN PCP Reason for Visit * Reason Comments Results Encounter Details Date Type Department Care Team Description 05/16/2017 Telephone [facility] Ratna Duval MD Results Physicians - Internal [address] [facility] [place] [address] [place] [address] [address] [facility] [phone] [place] [address] Social History Tobacco Use Types Packs/Day Years Used Date Former Smoker Cigarettes 40 Quit: 05/29/2015 Smokeless Tobacco: Never Used Alcohol Use Drinks/Week oz/Week Comments No 0 Standard 0.0 drinks or equivalent Sex Assigned at Date Recorded Not on file as of this encounter Miscellaneous Notes * Telephone Encounter - Rae Haro RN - 05/16/2017 9:26 AM PRICING ASSOCIATE Ms. Huizar notified of below results/recommendations. She states she only uses garlic and black pepper for seasoning as he cannot have sodium in his diet. She was advised to sprinkle a little bit of table salt on her personal portion. She states she will try to. She was also informed to increase protein in her diet. BMP, urine sodium and urine osmolarity orders placed, pt informed to return next week for repeat labs. She verbalized understanding. * Telephone Encounter - Rae Haro RN - 05/16/2017 9:26 AM PRICING ASSOCIATE ----- Message from Ratna Duval MD sent at 05/15/2017 4:27 PM PRICING ASSOCIATE ----- Miracle, could you call Mrs. Huizar and let her know that her labs showed hyponatremia. I will need her to increase sodium intake and protein intake-like chicken, fish etc. Her labs showed that she is not getting sufficient nutrition. I will need her to repeat bmp, urine sodium and urine osmolarity next week. Thanks, ratna in this encounter Plan of Treatment Not on fileas of this encounter Results * BASIC METABOLIC PANEL (05/28/2017 10:02 AM) [...] Specimen Performing Laboratory Blood MAIN LAB [address] [place] [address] * SODIUM-URINE RANDOM (05/28/2017 9:30 AM) Component Value Ref Range Sodium, Random 35 MMOL/L Specimen Performing Laboratory Urine [facility] [address] [place] [address] * OSMOLALITY-URINE RANDOM (05/28/2017 9:30 AM) Component Value Ref Range Osmolality-Urine 193 50 - 1,400 MOS/KG Specimen Performing Laboratory Urine [facility] [address] [place] [address] in this encounter Visit Diagnoses Diagnosis Hyponatremia - Primary Hyposmolality and/or hyponatremia
--- OUTSIDE RECORDS SUMMARY | 2017-06-15 14:26 | XMS REPORT | Encounter Summary ---
Author Author [facility] Organization [facility] Address Unknown Phone Unavailable Care Team Providers Care Shoe Planner Name Role Phone Apoorva Shane MD Unavailable Edgardo Torres MD Unavailable Amanda Bhandari Unavailable Montana Villasenor MD Unavailable Gilles Ness MD Unavailable Rain Tariq MD Unavailable Harika Hsu MD Unavailable Nayana Mccarty RN Unavailable Unavailable Symone Lee Unavailable Unavailable Sukumar Mondragon APRN PCP Reason for Visit * Reason Comments Appointment Question Encounter Details Date Type Department Care Team Description 04/15/2017 Telephone [facility] Rain Tariq MD Appointment Question Physicians - OBGYN [address] [facility] [address] F[address] POD [address] [facility] [address] OFFICE BLDG [phone] [place] [address] Social History Tobacco Use Types Packs/Day Years Used Date Former Smoker Cigarettes 40 Quit: 05/29/2015 Smokeless Tobacco: Never Used Alcohol Use Drinks/Week oz/Week Comments No 0 Standard 0.0 drinks or equivalent Sex Assigned at Date Recorded Not on file as of this encounter Miscellaneous Notes * Telephone Encounter - Sol Yanes - 04/15/2017 12:44 PM TYPE PROOF REPRODUCER Received a call from patient stating she needs to change her appointment scheduled with Dr Tariq on 05/13/2017. She can't make this appointment, because both her and her has scheduled appointments this day. She would like to r/s to the , because she has other appointments this day. I rtc and informed pt we scheduled her in at 12:30, to give her enough time in between her early am appointment. She also stated she has a 2 o'clock appointment as well. I explained we will get her seen as quickly as possible, and the PVR should not take long at all. Pt thanked me for returning the call. in this encounter Plan of Treatment Not on fileas of this encounter Visit Diagnoses Not on filein this encounter
--- OUTSIDE RECORDS SUMMARY | 2017-06-15 14:26 | XMS REPORT | Encounter Summary ---
Author Author [facility] Organization [facility] Address Unknown Phone Unavailable Care Team Providers Care Lace And Textiles Restorer Name Role Phone Apoorva Shane MD Unavailable Edgardo Torres MD Unavailable Amanda Bhandari Unavailable Montana Villasenor MD Unavailable Gilles Ness MD Unavailable Rain Tariq MD Unavailable Harika Hsu MD Unavailable Nayana Mccarty RN Unavailable Unavailable Symone Lee Unavailable Unavailable Sukumar Mondragon APRN PCP Reason for Visit * Outpatient Surgery (Routine) Status Reason Specialty Diagnoses / Referred By Referred To Procedures Contact Contact No Auth Needed Urology Diagnoses Harika Hsu, [facility] Retention of MD 2ND FLOOR POD A urine, [address] MED OFFICE BLDG [facility] of [place] [address] [place], [place] [address] URD/CYSTO[facility] [address] Phone: P rocedures [phone] DC Fax: CYSTOURETHROSCOP [phone] Y DC EMG STDS ANAL/URTL SPHNCTR OTH/THN NDL DC VOID PRESSURE STUDIES INTRAABDOMINAL DC COMPLEX CYSTOMETROGRAM VOIDING PRESSURE STUDIES DC COMPLEX UROFLOMETRY CLINICAL SUPPORT Encounter Details Date Type Department Care Team Description 05/20/2017 Clinical [facility] Urge incontinence Support Physicians - Urology (Primary Dx) 2ND FLOOR POD A [address] [facility] [place] [address] Social History Tobacco Use Types Packs/Day Years Used Date Former Smoker Cigarettes 40 Quit: 05/29/2015 Smokeless Tobacco: Never Used Alcohol Use Drinks/Week oz/Week Comments No 0 Standard 0.0 drinks or equivalent Sex Assigned at Date Recorded Not on file as of this encounter Last Filed Vital Signs Vital Sign Reading Time Taken Blood Pressure 114/67 05/20/2017 8:15 AM TECHNOLOGY TRAINER Pulse 89 05/20/2017 8:15 AM TECHNOLOGY TRAINER Temperature - - Respiratory Rate - - Oxygen Saturation - - Inhaled Oxygen - - Concentration Weight 69.4 kg (153 lb) 05/20/2017 8:15 AM TECHNOLOGY TRAINER Height 160 cm (5' 3") 05/20/2017 8:15 AM TECHNOLOGY TRAINER Body Mass Index 27.1 05/20/2017 8:15 AM TECHNOLOGY TRAINER in this encounter Plan of Treatment Not on fileas of this encounter Procedures Procedure Name Priority Date/Time Associated Diagnosis Comments URODYNAMIC STUDIES Routine 05/20/2017 Urge incontinence 12:00 AM TECHNOLOGY TRAINER in this encounter Results * POC URINE DIPSTICK MANUAL READ (05/20/2017) Component Value Ref Range Urine Glucose POC neg Urine Bilirubin POC neg Urine Ketone POC neg Urine Specific Mcgill 1.000 POC Urine Blood POC Moderate Urine PH POC 5.0 Urine Protein POC neg Urine Urobilinogen POC neg Urine Nitrite POC neg Urine Leukocytes POC neg Color,UA yellow Turbidity,UA clear Specimen Performing Laboratory Urine IN CLINIC in this encounter Visit Diagnoses Diagnosis Urge incontinence - Primary
--- OUTSIDE RECORDS SUMMARY | 2017-06-15 14:26 | XMS REPORT | Encounter Summary ---
Author Author [facility] Organization [facility] Address Unknown Phone Unavailable Care Team Providers Care Carbonation Equipment Operator Name Role Phone Apoorva Shane MD Unavailable Edgardo Torres MD Unavailable Amanda Bhandari Unavailable Montana Villasenor MD Unavailable Gilles Ness MD Unavailable Rain Tariq MD Unavailable Harika Hsu MD Unavailable Nayana Mccarty RN Unavailable Unavailable Symone Lee Unavailable Unavailable Sukumar Mondragon APRN PCP Reason for Visit * Reason Comments Urinary Retention * Consult, Test & Treat Status Reason Specialty Diagnoses / Referred By Referred To Procedures Contact Contact No Auth Needed Specialty Urology Diagnoses Aracelis Duval Kerri T, Services Alvaro Whittington MD MD Required unspecified type [address] [place] [address] Phone: Encounter Details Date Type Department Care Team Description 05/20/2017 Procedure visit [facility] Alvaro Duval MD Urge incontinence Physicians - Urology [address] (Primary Dx) 2ND FLOOR POD A [address] [place] [address] OFFICE BLDG [phone] [place] [address] B [phone] Harika jensen MD [address] [facility] [address] [place] [address] [phone] Social History Tobacco Use Types Packs/Day Years Used Date Former Smoker Cigarettes 42 Quit: 05/29/2015 Smokeless Tobacco: Never Used Alcohol Use Drinks/Week oz/Week Comments No 0 Standard 0.0 drinks or equivalent Sex Assigned at Date Recorded Not on file as of this encounter Last Filed Vital Signs Vital Sign Reading Time Taken Blood Pressure 114/67 05/20/2017 10:08 AM PROVIDER ENGAGEMENT EXECUTIVE Pulse 89 05/20/2017 10:08 AM PROVIDER ENGAGEMENT EXECUTIVE Temperature - - Respiratory Rate - - Oxygen Saturation - - Inhaled Oxygen - - Concentration Weight 69.4 kg (153 lb) 05/20/2017 10:08 AM PROVIDER ENGAGEMENT EXECUTIVE Height 160 cm (5' 3") 05/20/2017 10:08 AM PROVIDER ENGAGEMENT EXECUTIVE Body Mass Index 27.1 05/20/2017 10:08 AM PROVIDER ENGAGEMENT EXECUTIVE in this encounter Procedure Notes * Harika Hsu MD - 05/20/2017 10:00 AM PROVIDER ENGAGEMENT EXECUTIVE Procedure(s): URODYNAMIC STUDIES Urodynamic Study: UROFLOW: Voided volume: 180 mL Qmax: 9.8 mL/ s Qav.1 mL/ s PVR: 350 mL Cystometrogram (CMG): FILL: First sensation: 10 mL First desire: 156 mL Strong desire: 267 mL Capacity: 600 mL DO: no overactivity during filling VLPP: negative for leak at 65 - 79 cm H20 @ mL VOID: Voided volume: 227 mL Pdetmax: 45 cm H20 Qmax: 16 mL/ s Pdet @ Qmax: 23.8 cm H20 PVR: 371 mL ASSESSMENT: Sensation: Reduced/Hyposensitive. Compliance: Normal. Capacity: High. Detrusor: Idiopathic EMG Activity: Normal. EMG Coordination: Synergistic. Reviewed scanned report. * Harika Hsu MD - 05/20/2017 10:00 AM PROVIDER ENGAGEMENT EXECUTIVE Associated Order(s): CYSTOSCOPY Procedure(s): AK CYSTOURETHROSCOPY Pre-Procedure Diagnose(s): Urge incontinence Formatting of this note may be different from the original. Procedure: Cystourethroscopy Provider: Harika Hsu MD Anesthesia: 2% Lidocaine Gel, Intraurethral Complications: None Indication for Procedure: LUTS after sling After informed consent obtained, she was placed in dorsolithotomy position then prepped in the usual fashion. Local 2% lidocaine gel placed per urethra. The flexible cystoscope was gently passed into the urethra under direct visualization. Panendoscopy of the bladder did not show any papillary lesions, foreign bodies or signs of infection. Very large capacity bladder. Both ureteral orifices were identified and effluxed clear, yellow urine. Retroflex View performed. Subsequently the cystoscope was withdrawn and there urethra appeared normal. She tolerated the procedure well, and left the exam room in a pleasant disposition. Orders Placed This Encounter CYSTOSCOPY ciprofloxacin (CIPRO) 500 mg tablet Harika Hsu MD in this encounter Plan of Treatment Not on fileas of this encounter Procedures Procedure Name Priority Date/Time Associated Diagnosis Comments AK CYSTOURETHROSCOPY Routine 05/20/2017 Urge incontinence Results for this 10:00 AM PROVIDER ENGAGEMENT EXECUTIVE procedure are in the results section. in this encounter Results * CYSTOSCOPY (05/20/2017 10:00 AM) Specimen Performing [...] (CIPRO) 500 mg tablet Harika Hsu MD in this encounter Visit Diagnoses Diagnosis Urge incontinence - Primary
--- OUTSIDE RECORDS SUMMARY | 2017-06-15 14:26 | XMS REPORT | Encounter Summary ---
Author Author [facility] Organization [facility] Address Unknown Phone Unavailable Care Team Providers Care Want Ad Clerk Name Role Phone Apoorva Shane MD Unavailable Edgardo Torres MD Unavailable Amanda Bhandari Unavailable Montana Villasenor MD Unavailable Gilles Ness MD Unavailable Rain Tariq MD Unavailable Harika Hsu MD Unavailable Nayana cMcarty RN Unavailable Unavailable Symone Lee Unavailable Unavailable Sukumar Mondragon APRN PCP Reason for Visit * Reason Comments Other 4 wk f/u med check Encounter Details Date Type Department Care Team Description 05/20/2017 Office Visit [facility] Rain Tariq MD Possible urinary tract Physicians - OBGYN [address] infection (Primary Dx) 5TH FLOOR POD C [address] [place] [address] OFFICE BLDG [phone] [place] [address] Social History Tobacco Use Types Packs/Day Years Used Date Former Smoker Cigarettes 40 Quit: 05/29/2015 Smokeless Tobacco: Never Used Alcohol Use Drinks/Week oz/Week Comments No 0 Standard 0.0 drinks or equivalent Sex Assigned at Date Recorded Not on file as of this encounter Last Filed Vital Signs Vital Sign Reading Time Taken Blood Pressure 111/67 05/20/2017 2:30 PM DOUGH BRAKER Pulse 78 05/20/2017 2:30 PM DOUGH BRAKER Temperature - - Respiratory Rate - - Oxygen Saturation - - Inhaled Oxygen - - Concentration Weight 70.8 kg (156 lb) 05/20/2017 2:30 PM DOUGH BRAKER Height 160 cm (5' 3") 05/20/2017 2:30 PM DOUGH BRAKER Body Mass Index 27.63 05/20/2017 2:30 PM DOUGH BRAKER in this encounter Instructions * Patient Instructions - Jaycee Cowan RN - 05/20/2017 12:30 PM DOUGH BRAKER Thank you for visiting the [facility]. We strive to provide personalized and compassionate care. We look forward to taking care of you! The Urogynecology Team, MD Joleen Altman Ericka and Sol The number to call to reach us directly for medical questions or future scheduling needs is . Because Urogynecology is a surgical subspecialty, Dr. Tariq is in the OR several days of the week. We are in the office seeing patients in clinic on Tuesdays, and Fridays. Messages are checked every 4 hours on clinic days. Messages left after 1:00pm may not be answered until the following business day. Our location is the same, but our address has changed... You may notice on your text reminders and paperwork that the general address for [facility] ([address] [place] [address]) has been changed to: Medical Office Building at the [facility] [address] [place] [address] If you are scheduled to see us at the Medical Office Building on the [address] [place] the new address will take you directly to the [place] [facility] immediately across the street from our office the Medical Office Building (where our office is located). URINE CULTURE: A urine culture has been sent to the lab. We should have results in the next 3- 5 business days. It is always our intention to inform you of your results, whether they are positive or negative. If you have not been contacted after 3- 5 business days, please call our office ([phone]). in this encounter Progress Notes * Jaycee Cowan RN - 05/20/2017 12:30 PM DOUGH BRAKER Patient informed by Dr. Tariq to refer back to Dr. Hsu in regards to Hematuria and Urinary Incontinence due to current work-up with Dr. Hsu for surgery. Dr. Tariq will assist patient in an as-needed bases with prolapse issues. * Rain Tariq MD - 05/20/2017 12:30 PM DOUGH BRAKER S: Pt is under the care of Dr Hsu for her urinary issues of hematuria and urinary incontinence per clarification with pt. Offered to assist in any prolapse needs today. Pertinent Review of Systems: - General ROS: Denies recent weight change above 10 pounds, Denies malaise - HEENT ROS: Denies blurring of [...] seizure, Denies syncope - Dermatological ROS: Denies eczema. Denies skin rashes in the groin area and other sites O: BP 111/67 | Pulse 78 | Ht 160 cm (63") | Wt 70.8 kg (156 lb) | BMI 27.63 kg/m GEN: NAD, A&O A: Pt is under the care of Dr Hsu for urinary symptoms and for her microhematuria evaluation P: Informed pt that I would be glad to see her for any prolapse issues. in this encounter Plan of Treatment Name Priority Associated Diagnoses Order Schedule CULTURE-URINE W/SENSITIVITY Routine Possible urinary tract ONE TIME starting infection 05/20/2017 as of this encounter Results * POC URINE DIPSTICK MANUAL READ (05/20/2017) Component Value Ref Range Urine Glucose POC neg Urine Bilirubin POC neg Urine Ketone POC neg Urine Specific [place] 1.020 POC Urine Blood POC large Urine PH POC 7.0 Urine Protein POC neg Urine Urobilinogen POC neg Urine Nitrite POC neg Urine Leukocytes POC neg Color,UA light yellow Turbidity,UA clear Specimen Performing Laboratory Urine IN CLINIC Narrative Lot# [id number] Expiration: 09/04/2017 in this encounter Visit Diagnoses Diagnosis Possible urinary tract infection - Primary
--- OUTSIDE RECORDS SUMMARY | 2017-06-15 14:26 | XMS REPORT | Encounter Summary ---
Author Author [facility] Organization [facility] Address Unknown Phone Unavailable Care Team Providers Care Motor Vehicle Inspector Name Role Phone Apoorva Shane MD Unavailable Edgardo Torres MD Unavailable Amanda Bhandari Unavailable Montana Villasenor MD Unavailable Gilles Ness MD Unavailable Rain Tariq MD Unavailable Harika Hsu MD Unavailable Nayana Mccarty RN Unavailable Unavailable Symone Lee Unavailable Unavailable Sukumar Mondragon APRN PCP Reason for Visit * Reason Comments Chronic Kidney Disease Encounter Details Date Type Department Care Team Description 05/15/2017 Office Visit [facility] Alvaro Duval MD Hematuria, unspecified Physicians - Internal [address] type (Primary Dx); Medicine [address] Hyponatremia; 4TH [place] [address] Hypotension, unspecified [address] [phone] hypotension [place] [address] Social History Tobacco Use Types Packs/Day Years Used Date Former Smoker Cigarettes 40 Quit: 05/29/2015 Smokeless Tobacco: Never Used Alcohol Use Drinks/Week oz/Week Comments No 0 Standard 0.0 drinks or equivalent Sex Assigned at Date Recorded Not on file as of this encounter Last Filed Vital Signs Vital Sign Reading Time Taken Blood Pressure 94/62 05/15/2017 9:52 AM NAIL KEGGER Pulse 94 05/15/2017 9:52 AM NAIL KEGGER Temperature 36.7 C (98 F) 05/15/2017 9:50 AM NAIL KEGGER Respiratory Rate - - Oxygen Saturation - - Inhaled Oxygen - - Concentration Weight 71.5 kg (157 lb 9.6 oz) 05/15/2017 9:50 AM NAIL KEGGER Height 162.6 cm (5' 4") 05/15/2017 9:50 AM NAIL KEGGER Body Mass Index 27.05 05/15/2017 9:50 AM NAIL KEGGER in this encounter Progress Notes * Alvaro Duval MD - 05/15/2017 10:00 AM NAIL KEGGER Formatting of this note may be different from the original. Date of Service: 05/15/2017 Subjective: Nara Huizar is a 61 y.o. [...] pleuritic chest pain, arthritis Today Mrs. Huizar returns for regular f/up. Although two recent UAs have been negative for RBCs, she reports an episode of gross hematuria yesterday. She denies fever, burning on urination but she has chronic urgency and increased frequency. Recent w/up was negative for ANAs, ANCAs-C3/C4 were wnl. There was no significant proteinuria and an abdominal CT was negative for kidney stones/ tumors. Otherwise, Mrs. Huizar admits dizziness which is getting worse when she stands up. Denies syncopal episodes but yesterday she lost her balance and fell. Of note she was seen last month at [facility] by [facility] [place] for depression and her zoloft was increased from 50 mg to 100 mg qd. Review of Systems Constitutional: Positive for fatigue. Negative for activity change, appetite change and fever. Eyes: Negative. Respiratory: Negative for cough. Cardiovascular: Positive for leg swelling. Negative for chest pain. Gastrointestinal: Negative for abdominal distention, abdominal pain, nausea and vomiting. Genitourinary: Positive for difficulty urinating, flank pain, frequency, hematuria and urgency. Musculoskeletal: Positive for back pain. Negative for myalgias. Skin: Negative for rash and wound. Neurological: Positive for dizziness. Negative for tremors, seizures and syncope. Psychiatric/Behavioral: Positive for decreased concentration. Negative for [...] CALCIUM PO Take 600 mg by mouth. CETIRIZINE HCL (ZYRTEC PO) Take by mouth. [...] Take 20 mg by mouth twice daily.) Vitals: 05/15/17 0950 05/15/17 0952 BP: 111/77 94/62 Pulse: 91 94 Temp: 36.7 C (98 F) Weight: 71.5 kg (157 lb 9.6 oz) Height: 162.6 cm (64") Body mass index is 27.05 kg/m. Physical Exam Constitutional: She is oriented [...] Skin: Skin is warm. No rash noted. Magnesium Date Value Ref Range Status 05/15/2017 1.7 1.6 - 2.6 mg/dL Final Protein,UA Date Value Ref Range Status 09/23/2016 NEG NEG-NEG Final Creatinine, Random Date Value Ref Range Status 01/23/2017 22 MG/DL Final CBC w/Diff Lab Results Component Value Date/Time WBC 8.1 05/15/2017 11:00 AM RBC 4.62 05/15/2017 11:00 AM HGB 13.7 05/15/2017 11:00 AM HCT 39.9 05/15/2017 11:00 AM MCV 86.3 05/15/2017 11:00 AM MCH 29.7 05/15/2017 11:00 AM MCHC 34.4 05/15/2017 11:00 AM RDW 14.5 05/15/2017 11:00 AM PLTCT 249 05/15/2017 11:00 AM MPV 8.6 05/15/2017 11:00 AM Lab Results Component Value Date/Time NEUT 63 05/15/2017 11:00 AM ANC 5.20 05/15/2017 11:00 AM LYMA 24 05/15/2017 11:00 AM ALC 1.90 05/15/2017 11:00 AM LATISHA 9 05/15/2017 11:00 AM AMC 0.70 05/15/2017 11:00 AM EOSA 3 05/15/2017 11:00 AM AEC 0.20 05/15/2017 11:00 AM BASA 1 05/15/2017 11:00 AM ABC 0.10 05/15/2017 11:00 AM Comprehensive Metabolic Profile Lab Results Component Value Date/Time NA 129 (L) 05/15/2017 11:00 AM K 4.1 05/15/2017 11:00 AM CL 94 (L) 05/15/2017 11:00 AM CO2 26 05/15/2017 11:00 AM GAP 9 05/15/2017 11:00 AM BUN 4 (L) 05/15/2017 11:00 AM CR 0.49 05/15/2017 11:00 AM GLU 89 05/15/2017 11:00 AM Lab Results Component Value Date/Time CA 9.9 05/15/2017 11:00 AM ALBUMIN 3.8 05/15/2017 11:00 AM TOTPROT 6.4 05/15/2017 11:00 AM ALKPHOS 110 05/15/2017 11:00 AM AST 26 05/15/2017 11:00 AM ALT 21 05/15/2017 11:00 AM TOTBILI 0.3 05/15/2017 11:00 AM GFR >60 05/15/2017 11:00 AM GFRAA >60 05/15/2017 11:00 AM Renal US 11/2008: The right kidney measures 12.5 x 4.4 cm. The left kidney measures 12.1 x 4.5 cm. No hydronephrosis or nephrolithiasis is identified. The urinary bladder is unremarkable. Assessment and Plan: 61 yo female with multiple medical problems including overactive bladder, A flutter on A/C with Eliquis and intermittent hematuria Of note she has normal kidney function, no proteinuria CT abdom/pelvis: no kidney stones, no tumor Based on the current clinical information, I don't think that her hematuria is of glomerular origin and I do not see an indication for kidney biopsy. I suspect that her urological issues in combination to her anticoagulation treatment are causing the hematuria. She should follow-up with Dr. Harika Hsu , who saw her before for urinary incontinence. BP is lowish and she reports orthostatic symptoms. I advised her to increase her salt intake for now. I am reluctant to reduce her cardizem or toprol given her Aflutter issues. I think that her clinical administrative coordinator should decide on that. Of interest her serum Sodium is low today and I am wondering whether this reflects a hypovolumic state or it is due to SIADH in the setting of SSRI use. Will check urine sodium and urine osmolarity so that we can advise her whether she should discontinue the Zoloft. I will also have her to repeat her bmp early next week. in this encounter Plan of Treatment Not on fileas of this encounter Results * PROTEIN/CR RATIO,UR RAN (05/15/2017 11:14 AM) Component Value Ref Range Protein, Random 5 MG/DL Creatinine, Random 26 MG/DL Protein/CR ratio 0.2 Specimen Performing Laboratory Urine [facility] [address] [place] [address] * COMPREHENSIVE METABOLIC PANEL (05/15/2017 11:00 AM) [...] Performing Laboratory Blood [facility] [address] [place] [address] * MAGNESIUM (05/15/2017 11:00 AM) Component Value Ref Range Magnesium 1.7 1.6 - 2.6 mg/dL Specimen Performing Laboratory Blood [facility] [address] [place] [address] * CBC AND DIFF (05/15/2017 11:00 AM) [...] Specimen Performing Laboratory Blood [facility] [address] [place] [address] * POC URINE DIPSTICK AUTO READ (05/15/2017) Component Value Ref Range Urine Glucose POC norm Urine Bilirubin POC neg Urine Ketone POC neg Urine Specific [place] 1.000 POC Urine Blood POC 50 Urine PH POC 6.5 Urine Protein POC neg Urine Urobilinogen POC norm Urine Nitrite POC neg Urine Leukocytes POC neg Color,UA Turbidity,UA Specimen Performing Laboratory Urine IN CLINIC in this encounter Visit Diagnoses Diagnosis Hematuria, unspecified type - Primary Hyponatremia Hyposmolality and/or hyponatremia Hypotension, unspecified hypotension type
--- OUTSIDE RECORDS SUMMARY | 2017-06-15 14:26 | XMS REPORT | Encounter Summary ---
Author Author [facility] Organization [facility] Address Unknown Phone Unavailable Care Team Providers Care Candle Pourer Name Role Phone Apoorva Shane MD Unavailable Edgardo Torres MD Unavailable Amanda Bhandari Unavailable Montana Villasenor MD Unavailable Gilles Ness MD Unavailable Rain Tariq MD Unavailable Harika Hsu MD Unavailable Nayana Mccarty RN Unavailable Unavailable Symone Lee Unavailable Unavailable Sukumar Mondragon APRN PCP Encounter Details Date Type Department Care Team Description 05/15/2017 [facility] Alvaro Duval MD Hematuria, unspecified Encounter [address] [place] [address] [address] [place] [address] [phone] Social History Tobacco Use Types Packs/Day Years [...] on fileas of this encounter Results * OSMOLALITY-URINE RANDOM (05/15/2017 11:14 AM) Component Value Ref Range Osmolality-Urine 97 50 - 1,400 MOS/KG Specimen Performing Laboratory MAIN LAB [address] [place] [address] * SODIUM-URINE RANDOM (05/15/2017 11:14 AM) Component Value Ref Range Sodium, Random 14 MMOL/L Specimen Performing Laboratory MAIN LAB [address] [place] [address] * PROTEIN/CR RATIO,UR RAN (05/15/2017 11:14 AM) Component Value Ref Range Protein, Random 5 MG/DL Creatinine, Random 26 MG/DL Protein/CR ratio 0.2 Specimen Performing Laboratory Urine [facility] [address] [place] [address] * COMPREHENSIVE METABOLIC PANEL (05/15/2017 11:00 AM) [...] Specimen Performing Laboratory Blood MAIN LAB [address] [place] [address] * MAGNESIUM (05/15/2017 11:00 AM) Component Value Ref Range Magnesium 1.7 1.6 - 2.6 mg/dL Specimen Performing Laboratory Blood MAIN [facility] [address] [place] [address] * CBC AND DIFF (05/15/2017 11:00 AM) [...] Performing Laboratory Blood [facility] [address] [place] [address] in this encounter Visit Diagnoses Diagnosis Hematuria, unspecified type Hypo-osmolality and hyponatremia Hyposmolality and/or hyponatremia Hyponatremia Hyposmolality and/or hyponatremia Admitting Diagnoses Diagnosis Hematuria, unspecified
--- OUTSIDE RECORDS SUMMARY | 2017-06-15 14:27 | XMS REPORT | Encounter Summary ---
Author Author [facility] Organization [facility] Address Unknown Phone Unavailable Care Team Providers Care Wild Life Manager Name Role Phone Apoorva Shane MD Unavailable Edgardo Torres MD Unavailable Amanda Bhandari Unavailable Montana Villasenor MD Unavailable Gilles Ness MD Unavailable Rain Tariq MD Unavailable Harika Hsu MD Unavailable Nayana Mccarty RN Unavailable Unavailable Symone Lee Unavailable Unavailable Sukumar Mondragon APRN PCP Reason for Visit * Reason Comments Urinary Problem Encounter Details Date Type Department Care Team Description 04/10/2017 Office Visit [facility] Rain Tariq MD Suspected urinary tract Physicians - OBGYN [address] infection (Primary Dx) [address] [place] [id number] Social History Tobacco Use Types Packs/Day Years Used Date Former Smoker Cigarettes 42 Quit: 05/29/2015 Smokeless Tobacco: Never Used Alcohol Use Drinks/Week oz/Week Comments No 0 Standard 0.0 drinks or equivalent Sex Assigned at Date Recorded Not on file as of this encounter Last Filed Vital Signs Vital Sign Reading Time Taken Blood Pressure 116/63 04/10/2017 3:24 PM INFANTRY WEAPONS OFFICER Pulse 74 04/10/2017 3:24 PM INFANTRY WEAPONS OFFICER Temperature - - Respiratory Rate - - Oxygen Saturation - - Inhaled Oxygen - - Concentration Weight 73.8 kg (162 lb 11.2 oz) 04/10/2017 3:24 PM INFANTRY WEAPONS OFFICER Height 162.6 cm (5' 4.02") 04/10/2017 3:24 PM INFANTRY WEAPONS OFFICER Body Mass Index 27.91 04/10/2017 3:24 PM INFANTRY WEAPONS OFFICER in this encounter Progress Notes * Rain Tariq MD - 04/10/2017 3:30 PM INFANTRY WEAPONS OFFICER HPI: Pt presents today to leave a urine specimen Pertinent Review of Systems: - General ROS: Deniesneg recent weight change above 10 pounds, Deniespos malaise - HEENT ROS: Deniesneg blurring of vision. Deniesneg double vision, Deniesneg glaucoma, Deniesneg dry eyes - Cardiovascular ROS: Deniesneg chest pain. Deniesneg palpitations currently. Deniesneg orthopnea - Respiratory ROS: Deniesneg shortness of breath, Deniesneg cough, Deniesneg wheezing currently - Gastrointestinal ROS: Deniesneg constipation, Deniesneg gastric reflux, Deniesneg blood in stool, Deniespos diarrhea, Deniespos Irritable bowel syndrome , Deniesneg nausea, Deniesneg vomiting, Deniesneg abdominal pain - Endocrine ROS: Deniesneg polydipsia, Deniesneg excessive sweating. Deniesneg hot flashes. Deniesneg Thyroid disease - Hematological and Lymphatic ROS: Deniesneg easy bruisability , Deniesneg current anemia, Deniesneg adenopathy in the inguinal area - Neurological ROS: Deniesneg syncope, Deniesneg numbness in lower extremities, Deniesneg neuropathy. Deniesneg shooting pain down the legs, Deniesneg shooting pain in the lower back, Deniespos low back pain - Musculoskeletal ROS: Deniespos Joint pain. Deniespos Edema in lower extremities. Deniespos fibromyalgia - Psychological ROS: Deniesneg depression, Deniesneg anxiety, Deniesneg thoughts of suicide, Deniesneg thoughts of homicide, Deniesneg recent seizure, Deniesneg syncope - Dermatological ROS: Deniespos eczema. Deniesneg skin rashes in the groin area and other sites O: BP 116/63 | Pulse 74 | Ht 162.6 cm (64.02") | Wt 73.8 kg (162 lb 11.2 oz) | BMI 27.91 kg/m : Urine specimen sent to lab for culture A: Urinary urgency with sx of UTI P: Follow-up urine culture in this encounter Plan of Treatment Not on fileas of this encounter Results * CULTURE-URINE W/SENSITIVITY (04/10/2017 4:31 PM) Component Value Ref Range Battery Name URINE CULTURE Specimen Description URINE, CLEAN CATCH Special Requests NONE Culture NO GROWTH Report Status FINAL 04/12/2017 Specimen Performing Laboratory Urine - Urine,Clean Catch MAIN LAB [address] [place] [address] in this encounter Visit Diagnoses Diagnosis Suspected urinary tract infection - Primary
--- OUTSIDE RECORDS SUMMARY | 2017-06-15 14:27 | XMS REPORT | Encounter Summary ---
Author Author [facility] Organization [facility] Address Unknown Phone Unavailable Care Team Providers Care Surgical Instrument Repair Specialist Name Role Phone Apoorva Shane MD Unavailable Edgardo Torres MD Unavailable Amanda Bhandari Unavailable Montana Villasenor MD Unavailable Gilles Ness MD Unavailable Keysha Wheeler MD Unavailable Harika Hsu MD Unavailable Nayana Mccarty RN Unavailable Unavailable Symone Lee Unavailable Unavailable Sukumar Mondragon APRN PCP Encounter Details Date Type Department Care Team Description 04/10/2017 Hospital Q[facility] LAB Keysha Wheeler MD Urinary tract infection, Encounter [address] [place] [address] [place] [address] [place] [address] [phone] Social History Tobacco Use Types Packs/Day Years [...] mg by mouth as 06/04/2017 tablet Needed. ARIPiprazole (ABILIFY) 10 Take 20 mg by mouth 05/15/2017 mg tablet daily. ARIPiprazole (ABILIFY) 5 Take 5 mg by mouth daily. 05/15/2017 mg tablet CETIRIZINE HCL (ZYRTEC Take by mouth. 06/04/2017 PO) CLONAZEPAM PO Take by mouth at bedtime 06/04/2017 as needed. ERGOCALCIFEROL (VITAMIN Take 50,000 Units by 06/04/2017 D2) (VITAMIN D PO) mouth every 7 days. FLUTICASONE PROPIONATE Insert into nose as 06/04/2017 (FLONASE NA) directed. hydrOXYzine (ATARAX) 25 Take 25 mg by mouth three 06/04/2017 mg tablet times daily as needed for Itching. vortioxetine(+) Take 20 mg by mouth 05/15/2017 (TRINTELLIX) 20 mg tablet daily. zolpidem (AMBIEN) 5 mg Take 5 mg by mouth at 05/15/2017 tablet bedtime as needed for Sleep. as of this encounter Plan of Treatment Not on fileas of this encounter Results * CULTURE-URINE W/SENSITIVITY (04/10/2017 4:31 PM) Component Value Ref Range Battery Name URINE CULTURE Specimen Description URINE, CLEAN CATCH Special Requests NONE Culture NO GROWTH Report Status FINAL 04/12/2017 Specimen Performing Laboratory Urine - Urine,Clean Catch MAIN LAB [address] [place] [address] * NON-HAMMER SETTER CYTOLOGY (BODY FLUIDS/TISSUE) (04/10/2017 10:47 AM) Component Value Ref Range Cytology [facility] [email or web address] Department of Pathology and Laboratory Medicine [address] [place] [address] Surgical Pathology Office: [phone] CYTOLOGY REPORT NAME: NARA HUIZAR CYTOLOGY #: [id number] MR #: [id number] ALT ID #: [id number] #: [id number] LOCATION: [facility] DATE OF PROCEDURE: 04/10/2017 AGE: 61 SEX: [...] in this report. +++Electronically Signed Out By+++ arnold/04/14/2017 Interpreted by: Yuli Robledo MD, PhD Fe Orellana DO Resident Specimen Performing Laboratory [facility] RESULTS in this encounter Visit Diagnoses Diagnosis Suspected urinary tract infection Admitting Diagnoses Diagnosis Urinary tract infection, site not specified
--- OUTSIDE RECORDS SUMMARY | 2017-06-15 14:44 | XMS REPORT ---
Author Author Israel Alvarez Organization [facility] Address [address] [place], [place] [address] Care Team Providers Care Boiler Tender Name Role Phone Israel Alvarez PCP Allergies [...] prophylaxis protocol. Injection done by experienced provider. Imitrex 100 mg oral tablet take 1 tablet (100 mg) by oral route once with fluids as early as possible after the onset of a migraine attack;may repeat after 2 hours if headache returns, not to exceed 200mg in 24hrs naproxen 250 mg oral tablet 03/14/2017 take 1 tablet by oral route As needed for persistent migraine symptoms. Name Start Date Expiration Date SIG Comments [...] 155b Units today. Need 1 Vial 1 z108Iokop hydrocodone-acetaminophen 7.5-500 mg oral tablet 08/06/2012 09/05/2012 take 1 tablet by oral route every 4-6 hours as needed for pain for 30 days sumatriptan succinate 6 mg/0.5 mL subcutaneous cartridge 08/19/2012 09/18/2012 INJECT 1 DOSE (6 MG/0.5 ML) - MAY REPEAT IN 1 HOUR IF PAIN RETURNS OR INCREASES IN SEVERITY (MAX OF 2 DOSES IN 24 HOURS) Fiorinal-Codeine #3 [id number] mg oral capsule 04/30/2012 05/11/2012 take 1 capsule (30-91-453-40 mg) by oral route every 4 hours [...] simon given to patient Fioricet with Codeine 70-920-11-30 mg oral capsule 04/13/2013 08/03/2013 take 1 [...] HC BMI BSA BMI Percentile O2 Sat(%) 03/14/2017 8:14:00 AM 122 mmHg 70 mmHg 103 bpm 97.1 F 165 lbs 96 % 01/31/2017 9:15:00 AM 120 mmHg 62 mmHg 96 bpm 18 rpm 97.6 F 165 lbs 64 in 28.3219 kg/m 1.8384 m 93 % 11/07/2016 9:27:00 AM 116 mmHg [...] F 165 lbs 64 in 28.3219 kg/m 1.84 m2 12/19/2011 8:20:00 AM 112 mmHg 60 mmHg 72 bpm 18 rpm 97.7 F 167 lbs 64 in 28.67 kg/m2 1.8495 m 12/05/2011 8:09:00 AM 126 mmHg 74 mmHg 60 bpm 18 rpm 98.1 F 163 lbs 64 in 27.9786 kg/m 1.83 m2 11/04/2011 10:04:00 AM 122 mmHg 70 mmHg 74 bpm 16 rpm 98.5 F 165 lbs 64 in 28.32 kg/m2 1.8384 m 10/15/2011 8:53:00 AM 132 mmHg 70 mmHg 60 bpm 16 rpm 10/15/2011 8:14:00 AM 96 mmHg 50 mmHg 76 bpm 16 rpm 97.4 F 160 lbs 64 in 27.46 kg/m2 1.8103 m 10/01/2011 10:32:00 AM 118 mmHg 60 mmHg 76 bpm 18 rpm 97.9 F 167 lbs 64 in 28.6652 kg/m 1.85 m2 09/17/2011 10:01:00 AM 114 mmHg 54 mmHg 74 bpm 18 rpm 97.9 F 164 lbs 64 in 28.15 kg/m2 1.8328 m 08/20/2011 9:34:00 AM 132 mmHg 80 mmHg [...] AM Botox Toxin Type A, 1 unit [id number] Reviewed 01/03/2015 12:00 AM CHEMODENERV [facility] MIGRAINE Reviewed 02/02/2015 12:00 AM Pain Management Reviewed 02/02/2015 12:00 AM Occupational Therapy Consult Reviewed 02/02/2015 12:00 AM Kenalog, Per 10 Mg [facility]#7081-4430-03 Reviewed 02/02/2015 12:00 AM DRAIN/INJ JOINT/BURSA W/O US Reviewed 04/10/2015 12:00 AM Botox Toxin Type A, 1 unit [id number] Reviewed 04/10/2015 12:00 AM CHEMODENERV [facility] MIGRAINE Reviewed 11/17/2015 12:00 AM INJ TRIGGER POINT 1/2 MUSCL Reviewed 08/06/2011 12:00 AM N BLOCK INJ OCCIPITAL Reviewed 08/06/2011 12:00 AM Phenergan 25 Mg Im [facility] [address]-30 (Physiatry) Reviewed 08/06/2011 12:00 AM Toradol 15 Mg,[facility]#[id number] Reviewed 08/20/2011 12:00 AM N BLOCK INJ OCCIPITAL Reviewed 08/20/2011 12:00 AM INJECT TRIGGER POINTS 3/> Reviewed 09/17/2011 12:00 AM INJECT TRIGGER POINTS 3/> Reviewed 09/17/2011 12:00 AM N BLOCK INJ OCCIPITAL Reviewed 10/01/2011 12:00 AM INJECT TRIGGER POINTS 3/> Reviewed 10/15/2011 12:00 AM INJECT TRIGGER POINTS 3/> Reviewed 10/15/2011 12:00 AM Imitrex 6mg [facility] #09788-484-19 Reviewed 10/15/2011 12:00 AM Imitrex, 6mg [facility]#: [id number] Reviewed 11/04/2011 12:00 AM INJECT TRIGGER POINTS 3/> Reviewed 11/04/2011 12:00 AM Imitrex 6mg [facility] #28501-503-42 Reviewed 11/04/2011 12:00 AM N BLOCK INJ OCCIPITAL Reviewed 11/04/2011 12:00 AM DRAIN/INJ JOINT/BURSA W/O US Reviewed 12/05/2011 12:00 AM INJECT TRIGGER POINTS 3/> Reviewed 12/05/2011 12:00 AM N BLOCK INJ OCCIPITAL Reviewed 12/19/2011 12:00 AM INJECT TRIGGER POINTS 3/> Reviewed 12/19/2011 12:00 AM Imitrex 6mg [facility] #49938-727-95 Reviewed 12/19/2011 12:00 AM THER/PROPH/DIAG INJ SC/IM Reviewed 12/19/2011 12:00 AM Imitrex, 6mg [facility]#: [id number] Reviewed 01/02/2012 12:00 AM INJECT TRIGGER POINTS 3/> Reviewed 01/02/2012 12:00 AM Imitrex 6mg [facility] #61140-045-62 Reviewed 01/02/2012 12:00 AM THER/PROPH/DIAG INJ SC/IM Reviewed 01/02/2012 12:00 AM Imitrex, 6mg [facility]#: [id number] Reviewed 01/02/2012 12:00 AM N BLOCK INJ OCCIPITAL Reviewed 01/21/2012 12:00 AM INJECT TRIGGER POINTS 3/> Reviewed 01/21/2012 12:00 AM N BLOCK INJ OCCIPITAL Reviewed 01/31/2017 12:00 AM CHEMODENERV [facility] MIGRAINE Reviewed 01/31/2017 12:00 AM Destruction of nerve by injection of botulinum toxin Reviewed 01/31/2017 12:00 AM Destruction of nerve by injection of botulinum toxin Reviewed 02/06/2012 12:00 AM THER/PROPH/DIAG INJ SC/IM Reviewed 02/06/2012 12:00 AM Imitrex, 6mg [facility]#: [id number] Reviewed 02/06/2012 12:00 AM Imitrex 6mg [facility] #49196-177-88 Reviewed 02/06/2012 12:00 AM Therapeutic, prophylactic or diagnostic injection (specify substance or drug); subcutaneous or intramuscular Reviewed 03/03/2012 12:00 AM THER/PROPH/DIAG INJ SC/IM Reviewed 03/03/2012 12:00 AM Imitrex, 6mg [facility]#: 1199-6985-55 Reviewed 03/03/2012 12:00 AM N BLOCK OTHER PERIPHERAL Reviewed 03/03/2012 12:00 AM INJECT TRIGGER POINTS 3/> Reviewed 03/17/2012 12:00 AM THER/PROPH/DIAG INJ SC/IM Reviewed 03/17/2012 12:00 AM Imitrex, 6mg [facility]#: 3776-7873-16 Reviewed 03/17/2012 12:00 AM Norflex, Up to 60 Mg [facility]#01009-595-90 Reviewed 03/26/2012 12:00 AM INJECT TRIGGER POINTS 3/> Reviewed 03/26/2012 12:00 AM INJECTION,MARCAINE/BUPIVACAINJ [facility] [address]-88 ([place]) Reviewed 03/26/2012 12:00 AM Imitrex 6mg [facility] #17488-911-49 Reviewed 03/26/2012 12:00 AM Norflex, Up to 60 Mg [facility]#46948-779-05 Reviewed 04/14/2012 12:00 AM THER/PROPH/DIAG INJ SC/IM Reviewed 04/14/2012 12:00 AM Imitrex, 6mg [facility]#: 6312-7909-29 Reviewed 04/14/2012 12:00 AM THER/PROPH/DIAG INJ SC/IM Reviewed 04/14/2012 12:00 AM Norflex, Up to 60 Mg ND#17118-858-81 Reviewed 04/14/2012 12:00 AM N BLOCK INJ OCCIPITAL Reviewed 04/14/2012 12:00 AM INJECT TRIGGER POINTS 3/> Reviewed 04/14/2012 12:00 AM Bupivicaine, 30 ml ND#9187-8962-19 Reviewed 05/06/2012 12:00 AM Bupivicaine, 30 ml NDC#3647-3272-19 Reviewed 05/06/2012 12:00 AM INJECT TRIGGER POINTS 3/> Reviewed 05/06/2012 12:00 AM Norflex, Up to 60 Mg ND#12226-850-81 Reviewed 05/06/2012 12:00 AM Imitrex 6mg [facility] #71339-151-85 Reviewed 05/06/2012 12:00 AM N BLOCK INJ OCCIPITAL Reviewed 05/06/2012 12:00 AM Kenalog, Per 10 Mg [facility]#1430-6245-75 Reviewed 05/21/2012 12:00 AM Truman Chemodenervation muscle(s); muscle(s) innervated by facial Reviewed 05/21/2012 12:00 AM TRUMAN CHEMODENERVATION MUSCLE(S); NECK MUSCLE(S)(EG, FOR SPASMODIC Reviewed 05/21/2012 12:00 AM BOTULINUM TOXIN TYPE A, PER UNIT-Botox [facility] [id number] Huizar Reviewed 06/03/2012 12:00 AM INJECT TRIGGER POINTS 3/> Reviewed 06/03/2012 12:00 AM Bupivicaine, 30 ml ND#3778-8654-38 Reviewed 06/03/2012 12:00 AM Imitrex 6mg [facility] #30712-681-57 Reviewed 06/03/2012 12:00 AM Norflex, Up to 60 Mg ND#30955-660-40 Reviewed 06/03/2012 12:00 AM THER/PROPH/DIAG INJ SC/IM Reviewed 06/03/2012 12:00 AM Imitrex, 6mg ND#: 8552-4307-61 Reviewed 06/03/2012 12:00 AM Norflex, Up to 60 Mg ND#01328-900-33 Reviewed 07/01/2012 12:00 AM INJECT TRIGGER POINTS 3/> Reviewed 07/01/2012 12:00 AM Bupivicaine, 30 ml [facility]#3988-7944-13 Reviewed 07/01/2012 12:00 AM N BLOCK INJ OCCIPITAL Reviewed 07/07/2012 12:00 AM THER/PROPH/DIAG INJ SC/IM Reviewed 07/07/2012 12:00 AM Imitrex, 6mg ND#: 4960-9179-95 Reviewed 07/07/2012 12:00 AM Toradol 15 Mg ND#3395-3880-14 Reviewed 07/15/2012 12:00 AM INJECT TRIGGER POINTS 3/> Reviewed 07/15/2012 12:00 AM INJECTION,MARCAINE/BUPIVACAINJ [facility] [address]-66 ([place]) Reviewed 07/15/2012 12:00 AM MASSAGE THERAPY Reviewed 07/15/2012 12:00 AM THER/PROPH/DIAG INJ SC/IM Reviewed 07/15/2012 12:00 AM Imitrex, 6mg ND#: 2825-1049-89 Reviewed 07/15/2012 12:00 AM Norflex, Up to 60 Mg ND#53969-340-28 Reviewed 07/15/2012 12:00 AM Imitrex 6mg [facility] #51618-993-38 Reviewed 07/15/2012 12:00 AM Norflex, Up to 60 Mg [facility]#78752-724-76 Reviewed 08/06/2012 12:00 AM INJECT TRIGGER POINTS 3/> Reviewed 08/06/2012 12:00 AM N BLOCK INJ OCCIPITAL Reviewed 08/06/2012 12:00 AM THER/PROPH/DIAG INJ SC/IM Reviewed 08/06/2012 12:00 AM Imitrex, 6mg ND#: 3079-3084-94 Reviewed 08/06/2012 12:00 AM Norflex, Up to 60 Mg [facility]#32289-599-20 Reviewed 08/19/2012 12:00 AM BOTULINUM TOXIN TYPE A, PER UNIT-Botox [facility] [id number] Huizar Reviewed 08/19/2012 12:00 AM Truman Chemodenervation muscle(s); muscle(s) innervated by facial Reviewed 08/19/2012 12:00 AM TRUMAN CHEMODENERVATION MUSCLE(S); NECK MUSCLE(S)(EG, FOR SPASMODIC Reviewed 08/19/2012 12:00 AM Imitrex 6mg [facility] #47384-504-56 Reviewed 08/19/2012 12:00 AM Norflex, Up to 60 Mg NDC#34012-564-95 Reviewed 08/19/2012 12:00 AM THER/PROPH/DIAG INJ SC/IM Reviewed 08/19/2012 12:00 AM Imitrex, 6mg NDC#: 8892-3544-35 Reviewed 08/19/2012 12:00 AM Norflex, Up to 60 Mg NDC#53661-102-49 Reviewed 09/02/2012 12:00 AM Bupivicaine, 30 ml NDC#4165-8261-10 Reviewed 09/02/2012 12:00 AM INJECT TRIGGER POINTS 3/> Reviewed 09/02/2012 12:00 AM Imitrex 6mg NDC #67822-239-74 Reviewed 09/02/2012 12:00 AM Norflex, Up to 60 Mg NDC#14810-600-85 Reviewed 09/02/2012 12:00 AM Imitrex, 6mg NDC#: 8805-4241-64 Reviewed 09/16/2012 12:00 AM THER/PROPH/DIAG INJ SC/IM Reviewed 09/16/2012 12:00 AM Norflex, Up to 60 Mg N[facility]#80147-511-01 Reviewed 09/16/2012 12:00 AM INJECT TRIGGER POINTS 3/> Reviewed 09/16/2012 12:00 AM Imitrex 6mg N[facility] #76205-053-32 Reviewed 09/16/2012 12:00 AM Norflex, Up to 60 Mg NDC#01697-961-23 Reviewed 11/17/2012 12:00 AM Imitrex 6mg N[facility] #08346-893-28 Reviewed 11/17/2012 12:00 AM THER/PROPH/DIAG INJ SC/IM Reviewed 11/17/2012 12:00 AM Toradol 30 Mg NDC#0981-6436-84 Reviewed 11/17/2012 12:00 AM Bupivicaine, 30 ml NDC#6908-5588-26 Reviewed 11/17/2012 12:00 AM INJECT TRIGGER POINTS 3/> Reviewed 11/17/2012 12:00 AM Imitrex 6mg N[facility] #47312-148-24 Reviewed 11/17/2012 12:00 AM Norflex, Up to 60 Mg NDC#17014-471-59 Reviewed 11/17/2012 12:00 AM N BLOCK INJ OCCIPITAL Reviewed 12/01/2012 12:00 AM INJECT TRIGGER POINTS 3/> Reviewed 05/27/2013 12:00 AM THER/PROPH/DIAG INJ SC/IM Reviewed 05/27/2013 12:00 AM Norflex, Up to 60 Mg [facility]#54031-547-24 Reviewed 06/07/2013 12:00 AM INJECT TRIGGER POINTS 3/> Reviewed 06/24/2013 12:00 AM THER/PROPH/DIAG INJ SC/IM Reviewed 06/24/2013 12:00 AM Norflex, Up to 60 Mg [facility]#57542-121-84 Reviewed 06/24/2013 12:00 AM INJECT TRIGGER POINTS 3/> Reviewed 06/24/2013 12:00 AM N BLOCK INJ OCCIPITAL Reviewed 07/08/2013 12:00 AM INJECT TRIGGER POINTS 3/> Reviewed 07/08/2013 12:00 AM THER/PROPH/DIAG INJ SC/IM Reviewed 07/08/2013 12:00 AM Norflex 30 mg IM [facility]#18816-081-64 Reviewed 07/08/2013 12:00 AM THER/PROPH/DIAG INJ SC/IM Reviewed 07/22/2013 12:00 AM INJECT TRIGGER POINTS 3/> Reviewed 07/22/2013 12:00 AM THER/PROPH/DIAG INJ SC/IM Reviewed 07/22/2013 12:00 AM Norflex 30 mg IM [facility]#91716-399-99 Reviewed 07/22/2013 12:00 AM THER/PROPH/DIAG INJ SC/IM Reviewed 08/03/2013 12:00 AM INJ TRIGGER POINT 1/2 MUSCL Reviewed 08/03/2013 12:00 AM THER/PROPH/DIAG INJ SC/IM Reviewed 08/03/2013 12:00 AM Norflex 30 mg IM [facility]#31269-266-86 Reviewed 08/03/2013 12:00 AM Imitrex, 6mg [facility]#: 4052-2116-16 Reviewed 08/24/2013 12:00 AM INJECT TRIGGER POINTS 3/> Reviewed 08/24/2013 12:00 AM THER/PROPH/DIAG INJ SC/IM Reviewed 08/24/2013 12:00 AM Norflex 30 mg IM [facility]#51455-299-92 Reviewed 09/07/2013 12:00 AM INJECT TRIGGER POINTS 3/> Reviewed 09/07/2013 12:00 AM THER/PROPH/DIAG INJ SC/IM Reviewed 09/07/2013 12:00 AM Norflex 30 mg IM [facility]#88887-357-68 Reviewed 09/21/2013 12:00 AM Botox Toxin Type A, 1 unit [id number] Reviewed 09/21/2013 12:00 AM CHEMODENERV [facility] MIGRAINE Reviewed 09/23/2013 12:00 AM INJECT TRIGGER POINTS 3/> Reviewed 11/08/2013 12:00 AM N BLOCK INJ OCCIPITAL Reviewed 11/08/2013 12:00 AM Kenalog, Per 10 Mg [facility]#4103-9216-03 [facility] Medicare Reviewed 12/21/2013 12:00 AM Botox Toxin Type A, 1 unit [id number] Reviewed 12/21/2013 12:00 AM CHEMODENERV [facility] MIGRAINE Reviewed 03/25/2014 12:00 AM THER/PROPH/DIAG INJ SC/IM Reviewed 03/25/2014 12:00 AM Norflex, Up to 60 Mg [facility]#22097-220-90 Reviewed 05/17/2014 12:00 AM Interventional Pain Consult Reviewed 05/17/2014 12:00 AM Occupational Therapy Consult Reviewed 07/12/2014 12:00 AM DRAIN/INJ JOINT/BURSA W/O US Reviewed 07/12/2014 12:00 AM Kenalog, Per 10 Mg [facility]#3579-6660-15 Reviewed 10/11/2014 12:00 AM Botox Toxin Type A, 1 unit [id number] Reviewed 10/11/2014 12:00 AM CHEMODENERV [facility] MIGRAINE Reviewed Results Summary Not available. History [...] Dec 05 2011 12:56PM myofascial pain Sep 13 2011 8:22AM Headache Sep 13 2011 2:13PM myofascial pain Sep 27 2011 8:20AM Headache Sep 2011 9:14AM Migraine Headache Sep 2011 8:20AM greater occipital neuralgia Sep 27 2011 12:57PM myofascial pain Jan 21 2012 8:13AM [...] Muscle spasm Mar 25 2014 10:27AM Migraine May 17 2014 8:56AM Chronic low back pain Feb 2014 8:56AM Memory difficulties b 2014 8:56AM Muscle tension headache Feb 10 [...] with status migrainosus Jan 31 2017 9:19AM Chronic migraine without aura, intractable, with status migrainosus Mar 14 2017 8:19AM Payers Insurance Name Company Name Plan Name Plan Number Policy Number Policy Group Number Start Date Medicare Part B Medicare [place] [id number] Saturday, 2011 [facility] [id number] N/A Medicare RHC Medicare RHC [id number] Wednesday, 2011 Medicare Part A Medicare - Lab/Xray [id number] Friday, January 052010 [place] [facility] Pro [id number] N/A History of Encounters Visit Date Visit Type Provider 03/14/2017 Office visit Israel Alvarez DO 01/31/2017 Procedures Israel Alvarez DO 11/07/2016 Procedures Ivelisse LANDAVERDE 08/08/2016 Procedures Ivelisse LANDAVERDE 05/09/2016 Procedures Ivelisse LANDAVERDE 02/08/2016 Procedures Ivelisse LANDAVERDE 11/17/2015 Office visit [...] visit Penny Ayers MD 03/25/2014 Procedures Ivelisse HUNTP 12/21/2013 Office visit Ivelisse HUNTP 11/25/2013 Office visit Penny Ayers MD 10/29/2013 Office visit Ivelisse HUNTP 10/05/2013 Office visit Ivelisse ArnaudLaurie HUNTP 09/28/2013 Voided Ivelisse Eldridge Teo HUNTP 09/23/2013 Office visit Ivelisse ArnaudLaurie HUNTP 09/21/2013 Office visit Ivelisse ArnaudLaurie HUNTP 09/07/2013 Office visit Ivelisse ArnaudLaurie HUNTP 08/24/2013 Office visit Ivelisse HUNTP 08/03/2013 Office visit Penny Ayers MD 07/22/2013 Office visit Ivelisse HUNTP 07/08/2013 Office visit Ivelisse LANDAVERDE 06/24/2013 Office visit Ivelisse HUNTP 06/07/2013 Office visit Ivelisse LANDAVERDE 05/27/2013 Office visit Penny Ayers MD 12/01/2012 Office visit Ivelisse LANDAVERDE 11/17/2012 Office visit Penny Ayers MD 09/16/2012 Office visit Olivia Cisneros FUNNEL COATER 09/02/2012 Office visit Olivia Cisneros FUNNEL COATER 08/19/2012 Office visit Olivia Cisneros FUNNEL COATER 08/06/2012 Office visit Penny Ayers MD 07/15/2012 Office visit Olivia Cisneros FUNNEL COATER 07/07/2012 Office visit Penny Ayers MD 07/01/2012 Office visit Olivia Cisneros FUNNEL COATER 06/03/2012 Office visit Olivia Cisneros FUNNEL COATER 05/21/2012 Office visit Penny Ayers MD 05/06/2012 Office visit Olivia Cisneros FUNNEL COATER 04/14/2012 Office visit Olivia Cisneros FUNNEL COATER 03/26/2012 Office visit Olivia Cisneros FUNNEL COATER 03/17/2012 Office visit Penny Ayers MD 03/03/2012 Office visit Olivia Cisneros FUNNEL COATER 02/06/2012 Office visit Penny Ayers MD 01/21/2012 [...]
--- OUTSIDE RECORDS SUMMARY | 2017-06-15 14:59 | XMS REPORT ---
Author Author SENAIT DUNLAP [facility] Address [address] [place] [address] Care Team Providers Care Appraisal Technician Name Role Phone SENAIT DUNLAP Unavailable PROBLEMS Type Condition ICD9-CM Code EAX40-NN Code Onset Dates Condition Status SNOMED Code Problem Essential tremor G25.0 Active 94694514 Problem Gastroparesis K31.84 Active 385829215 Problem Hyperlipidemia E78.5 Active 42425835 Problem Osteoporosis M81.0 Active 55256196 Problem Osteopenia M85.80 Active 850880009 Problem COPD (chronic obstructive pulmonary disease) J44.9 Active 26853818 Problem Screening breast examination Z12.39 Active 016168559 Problem 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.118 Active 9583762326234 Problem Cigarette nicotine dependence without complication F17.210 Active 27477725 Problem Arthritis M19.90 Active 7910666 Problem Vascular dementia without behavioral disturbance F01.50 Active [id number] Problem Gastroesophageal reflux disease, esophagitis presence not specified K21.9 Active 227381069 Problem Migraine without aura and with status migrainosus, not intractable G43.001 Active 380142189 Problem Colon polyp K63.5 Active 70623018 Problem History of common bile duct surgery Z98.89 Active 022135496 Problem Barretts esophagus K22.70 Active 899143484 Problem Xeroderma Q80.9 Active 08796186 Problem Dementia without behavioral disturbance, unspecified dementia type F03.90 Active 36324185 Problem Migraine without aura and without status migrainosus, not intractable G43.009 Active 057588391 Problem Unspecified psychosis F29 Active 91412699 Problem Chronic pain syndrome G89.4 Active 265335403 Problem Generalized anxiety disorder F41.1 Active 577303683 Problem Cervicalgia M54.2 Active 9209624465029 Problem Paroxysmal atrial fibrillation I48.0 Active 495022820 Problem 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 Active 58238458 Problem Postmenopausal Z78.0 Active 18213143 Problem Bilateral low back pain without sciatica M54.5 Active 881219859 Problem Major depressive disorder, recurrent episode, moderate F33.1 Active 212908484 ALLERGIES No Information SOCIAL HISTORY Never Assessed PLAN OF CARE VITAL SIGNS MEDICATIONS Unknown Medications RESULTS Name Result Date Reference Range CBC 2016-08-19 WBC 6.4 3.4-10.8 RBC 4.40 3.77-5.28 Hemoglobin 12.1 11.1-15.9 Hematocrit 38.2 34.0-46.6 MCV 87 79-97 MCH 27.5 26.6-33.0 MCHC 31.7 31.5-35.7 RDW 15.2 12.3-15.4 Platelets 267 150-379 Neutrophils 60 Lymphs 25 Monocytes 9 Eos 6 Basos 0 Neutrophils (Absolute) 3.8 1.4-7.0 Lymphs (Absolute) 1.6 0.7-3.1 Monocytes(Absolute) 0.6 0.1-0.9 Eos (Absolute) 0.4 0.0-0.4 Baso (Absolute) 0.0 0.0-0.2 Immature Granulocytes 0 Immature Grans (Abs) 0.0 0.0-0.1 LIPID PANEL 2016-08-19 Cholesterol, Total 155 100-199 Triglycerides 119 0-149 HDL Cholesterol 57 >39 VLDL Cholesterol Percy 24 5-40 LDL Cholesterol Calc 74 0-99 Comment: CMP 2016-08-19 Glucose, Serum 90 65-99 BUN 6 8-27 Creatinine, Serum 0.56 0.57-1.00 eGFR If NonAfricn Am 100 >59 eGFR If Africn Am 115 >59 BUN/Creatinine Ratio 11 12-28 Sodium, Serum 141 134-144 Potassium, Serum 4.7 3.5-5.2 Chloride, Serum 104 96-106 Carbon Dioxide, Total 22 18-29 Calcium, Serum 9.2 8.7-10.3 Protein, Total, Serum 6.0 6.0-8.5 Albumin, Serum 3.6 3.6-4.8 Globulin, Total 2.4 1.5-4.5 A/G Ratio 1.5 1.2-2.2 Bilirubin, Total <0.2 0.0-1.2 Alkaline Phosphatase, S 116 39-117 AST (SGOT) 32 0-40 ALT (SGPT) 25 0-32 PROCEDURES Procedure Date Ordered Result Body Site LAB NOT BILLED BY [facility] August 19, 2016 VENIPUNCT, ROUTINE* August 19, 2016 IMMUNIZATIONS No Known Immunizations MEDICAL (GENERAL) [...]
--- OUTSIDE RECORDS SUMMARY | 2017-06-15 15:01 | XMS REPORT ---
Author Author Israel Alvarez Organization [facility] Address [address] [place], [place] [id number] Care Team Providers Care Inspector And Clerk Name Role Phone Israel Alvarez PCP Allergies and Adverse Reactions Name Reaction Notes ibuprofen rash Triple Antibiotic rash Plan of Treatment Planned Activity Comments Planned [...] by oral route 2 times per day Imitrex 100 mg oral tablet take 1 tablet (100 mg) by oral route once with fluids as early as possible after the onset of a migraine attack;may repeat after 2 hours if headache returns, not to exceed 200mg in 24hrs naproxen 250 mg oral tablet 03/14/2017 take 1 tablet by oral route As needed for persistent migraine symptoms. Botox 200 unit injection recon soln 04/16/2017 07/15/2017 INject 155 units into 31 sites as [...] 155b Units today. Need 1 Vial 1 [id number] hydrocodone-acetaminophen 7.5-500 mg oral tablet 08/06/2012 09/05/2012 take 1 tablet by oral route every 4-6 hours as needed for pain for 30 days sumatriptan succinate 6 mg/0.5 mL subcutaneous cartridge 08/19/2012 09/18/2012 INJECT 1 DOSE (6 MG/0.5 ML) - MAY REPEAT IN 1 HOUR IF PAIN RETURNS OR INCREASES IN SEVERITY (MAX OF 2 DOSES IN 24 HOURS) Fiorinal-Codeine #3 09-97-438-40 mg oral capsule 04/30/2012 05/11/2012 take 1 capsule (13-23-884-40 mg) by oral route every 4 hours [...] directed on mina simon given to patient Rasheedet with Codeine 69-602-57-30 mg oral capsule 04/13/2013 08/03/2013 take 1 [...] HC BMI BSA BMI Percentile O2 Sat(%) 04/29/2017 8:24:00 AM 118 mmHg 76 mmHg 93 bpm 24 rpm 98.1 F 154.5 lbs 64 in 26.52 kg/m2 1.78 m2 95 % 03/14/2017 8:14:00 AM 122 mmHg 70 mmHg [...] AM Botox Toxin Type A, 1 unit [id number] Reviewed 01/03/2015 12:00 AM CHEMODENERV MUSC MIGRAINE Reviewed 02/02/2015 12:00 AM Pain Management Reviewed 02/02/2015 12:00 AM Occupational Therapy Consult Reviewed 02/02/2015 12:00 AM Kenalog, Per 10 Mg [facility]#0450-2750-97 Reviewed 02/02/2015 12:00 AM DRAIN/INJ JOINT/BURSA W/O US Reviewed 04/10/2015 12:00 AM Botox Toxin Type A, 1 unit [id number] Reviewed 04/10/2015 12:00 AM CHEMODENERV MUSC MIGRAINE Reviewed 11/17/2015 12:00 AM INJ TRIGGER POINT 1/2 MUSCL Reviewed 08/06/2011 12:00 AM N BLOCK INJ OCCIPITAL Reviewed 08/06/2011 12:00 AM Phenergan 25 Mg Im [facility] [address]-66 (Physiatry) Reviewed 08/06/2011 12:00 AM Toradol 15 Mg,[facility]#[id number] Reviewed 08/20/2011 12:00 AM N BLOCK INJ OCCIPITAL Reviewed 08/20/2011 12:00 AM INJECT TRIGGER POINTS 3/> Reviewed 09/17/2011 12:00 AM INJECT TRIGGER POINTS 3/> Reviewed 09/17/2011 12:00 AM N BLOCK INJ OCCIPITAL Reviewed 10/01/2011 12:00 AM INJECT TRIGGER POINTS 3/> Reviewed 10/15/2011 12:00 AM INJECT TRIGGER POINTS 3/> Reviewed 10/15/2011 12:00 AM Imitrex 6mg [facility] #35226-372-65 Reviewed 10/15/2011 12:00 AM Imitrex, 6mg [facility]#: 9027-3975-61 Reviewed 11/04/2011 12:00 AM INJECT TRIGGER POINTS 3/> Reviewed 11/04/2011 12:00 AM Imitrex 6mg [facility] #32155-814-06 Reviewed 11/04/2011 12:00 AM N BLOCK INJ OCCIPITAL Reviewed 11/04/2011 12:00 AM DRAIN/INJ JOINT/BURSA W/O US Reviewed 12/05/2011 12:00 AM INJECT TRIGGER POINTS 3/> Reviewed 12/05/2011 12:00 AM N BLOCK INJ OCCIPITAL Reviewed 12/19/2011 12:00 AM INJECT TRIGGER POINTS 3/> Reviewed 12/19/2011 12:00 AM Imitrex 6mg [facility] #77039-789-17 Reviewed 12/19/2011 12:00 AM THER/PROPH/DIAG INJ SC/IM Reviewed 12/19/2011 12:00 AM Imitrex, 6mg [facility]#: 9534-0853-73 Reviewed 01/02/2012 12:00 AM INJECT TRIGGER POINTS 3/> Reviewed 01/02/2012 12:00 AM Imitrex 6mg [facility] #01180-712-78 Reviewed 01/02/2012 12:00 AM THER/PROPH/DIAG INJ SC/IM Reviewed 01/02/2012 12:00 AM Imitrex, 6mg [facility]#: 3978-6867-08 Reviewed 01/02/2012 12:00 AM N BLOCK INJ [...] SC/IM Reviewed 02/06/2012 12:00 AM Imitrex, 6mg [facility]#: 7182-0997-18 Reviewed 02/06/2012 12:00 AM Imitrex 6mg [facility] #96093-951-63 Reviewed 02/06/2012 12:00 AM Therapeutic, prophylactic or diagnostic injection (specify substance or drug); subcutaneous or intramuscular Reviewed 03/03/2012 12:00 AM THER/PROPH/DIAG INJ SC/IM Reviewed 03/03/2012 12:00 AM Imitrex, 6mg [facility]#: 5342-7330-26 Reviewed 03/03/2012 12:00 AM N BLOCK OTHER PERIPHERAL Reviewed 03/03/2012 12:00 AM INJECT TRIGGER POINTS 3/> Reviewed 03/17/2012 12:00 AM THER/PROPH/DIAG INJ SC/IM Reviewed 03/17/2012 12:00 AM Imitrex, 6mg [facility]#: 0236-1401-76 Reviewed 03/17/2012 12:00 AM Norflex, Up to 60 Mg [facility]#98904-341-26 Reviewed 03/26/2012 12:00 AM INJECT TRIGGER POINTS 3/> Reviewed 03/26/2012 12:00 AM INJECTION,MARCAINE/BUPIVACAINJ [facility] [address]-60 (Hunter) Reviewed 03/26/2012 12:00 AM Imitrex 6mg [facility] #61031-552-08 Reviewed 03/26/2012 12:00 AM Norflex, Up to 60 Mg [facility]#98683-080-55 Reviewed 04/14/2012 12:00 AM THER/PROPH/DIAG INJ SC/IM Reviewed 04/14/2012 12:00 AM Imitrex, 6mg ND#: 9822-6849-79 Reviewed 04/14/2012 12:00 AM THER/PROPH/DIAG INJ SC/IM Reviewed 04/14/2012 12:00 AM Norflex, Up to 60 Mg [facility]#01772-091-82 Reviewed 04/14/2012 12:00 AM N BLOCK INJ OCCIPITAL Reviewed 04/14/2012 12:00 AM INJECT TRIGGER POINTS 3/> Reviewed 04/14/2012 12:00 AM Bupivicaine, 30 ml [facility]#7896-3870-66 Reviewed 05/06/2012 12:00 AM Bupivicaine, 30 ml [facility]#3075-8919-10 Reviewed 05/06/2012 12:00 AM INJECT TRIGGER POINTS 3/> Reviewed 05/06/2012 12:00 AM Norflex, Up to 60 Mg [facility]#24243-687-74 Reviewed 05/06/2012 12:00 AM Imitrex 6mg [place] #14712-839-96 Reviewed 05/06/2012 12:00 AM N BLOCK INJ OCCIPITAL Reviewed 05/06/2012 12:00 AM Kenalog, Per 10 Mg [facility]#1159-7831-97 Reviewed 05/21/2012 12:00 AM Truman Chemodenervation muscle(s); muscle(s) innervated by facial Reviewed 05/21/2012 12:00 AM TRUMAN CHEMODENERVATION MUSCLE(S); NECK MUSCLE(S)(EG, FOR SPASMODIC Reviewed 05/21/2012 12:00 AM BOTULINUM TOXIN TYPE A, PER UNIT-Botox [facility] [id number] Huizar Reviewed 06/03/2012 12:00 AM INJECT TRIGGER POINTS 3/> Reviewed 06/03/2012 12:00 AM Bupivicaine, 30 ml [facility]#1880-6046-78 Reviewed 06/03/2012 12:00 AM Imitrex 6mg [place] #82341-748-43 Reviewed 06/03/2012 12:00 AM Norflex, Up to 60 Mg [facility]#84046-515-70 Reviewed 06/03/2012 12:00 AM THER/PROPH/DIAG INJ SC/IM Reviewed 06/03/2012 12:00 AM Imitrex, 6mg [facility]#: 2420-2166-73 Reviewed 06/03/2012 12:00 AM Norflex, Up to 60 Mg [facility]#57880-097-04 Reviewed 07/01/2012 12:00 AM INJECT TRIGGER POINTS 3/> Reviewed 07/01/2012 12:00 AM Bupivicaine, 30 ml [facility]#7038-0892-18 Reviewed 07/01/2012 12:00 AM N BLOCK INJ OCCIPITAL Reviewed 07/07/2012 12:00 AM THER/PROPH/DIAG INJ SC/IM Reviewed 07/07/2012 12:00 AM Imitrex, 6mg [facility]#: 6352-8898-15 Reviewed 07/07/2012 12:00 AM Toradol 15 Mg [facility]#0368-3468-88 Reviewed 07/15/2012 12:00 AM INJECT TRIGGER POINTS 3/> Reviewed 07/15/2012 12:00 AM INJECTION,MARCAINE/BUPIVACAINJ [facility] [address]-20 (Hunter) Reviewed 07/15/2012 12:00 AM MASSAGE THERAPY Reviewed 07/15/2012 12:00 AM THER/PROPH/DIAG INJ SC/IM Reviewed 07/15/2012 12:00 AM Imitrex, 6mg [facility]#: 4364-2911-36 Reviewed 07/15/2012 12:00 AM Norflex, Up to 60 Mg [facility]#67169-820-34 Reviewed 07/15/2012 12:00 AM Imitrex 6mg [facility] #41809-182-84 Reviewed 07/15/2012 12:00 AM Norflex, Up to 60 Mg [facility]#27698-777-49 Reviewed 08/06/2012 12:00 AM INJECT TRIGGER POINTS 3/> Reviewed 08/06/2012 12:00 AM N BLOCK INJ OCCIPITAL Reviewed 08/06/2012 12:00 AM THER/PROPH/DIAG INJ SC/IM Reviewed 08/06/2012 12:00 AM Imitrex, 6mg [facility]#: 3864-7907-89 Reviewed 08/06/2012 12:00 AM Norflex, Up to 60 Mg [facility]#45448-950-74 Reviewed 08/19/2012 12:00 AM BOTULINUM TOXIN TYPE A, PER UNIT-Botox [facility] [id number] Huizar Reviewed 08/19/2012 12:00 AM Truman Chemodenervation muscle(s); muscle(s) innervated by facial Reviewed 08/19/2012 12:00 AM TRUMAN CHEMODENERVATION MUSCLE(S); NECK MUSCLE(S)(EG, FOR SPASMODIC Reviewed 08/19/2012 12:00 AM Imitrex 6mg [facility] #85581-931-51 Reviewed 08/19/2012 12:00 AM Norflex, Up to 60 Mg [facility]#93371-506-77 Reviewed 08/19/2012 12:00 AM THER/PROPH/DIAG INJ SC/IM Reviewed 08/19/2012 12:00 AM Imitrex, 6mg [facility]#: 6932-1653-70 Reviewed 08/19/2012 12:00 AM Norflex, Up to 60 Mg [facility]#56707-270-09 Reviewed 09/02/2012 12:00 AM Bupivicaine, 30 ml [facility]#0943-7842-59 Reviewed 09/02/2012 12:00 AM INJECT TRIGGER POINTS 3/> Reviewed 09/02/2012 12:00 AM Imitrex 6mg [facility] #81736-396-65 Reviewed 09/02/2012 12:00 AM Norflex, Up to 60 Mg [facility]#57643-039-28 Reviewed 09/02/2012 12:00 AM Imitrex, 6mg [facility]#: 7302-4216-20 Reviewed 09/16/2012 12:00 AM THER/PROPH/DIAG INJ SC/IM Reviewed 09/16/2012 12:00 AM Norflex, Up to 60 Mg [facility]#87441-460-97 Reviewed 09/16/2012 12:00 AM INJECT TRIGGER POINTS 3/> Reviewed 09/16/2012 12:00 AM Imitrex 6mg [facility] #33345-498-12 Reviewed 09/16/2012 12:00 AM Norflex, Up to 60 Mg [facility]#17496-780-82 Reviewed 11/17/2012 12:00 AM Imitrex 6mg [facility] #56954-583-08 Reviewed 11/17/2012 12:00 AM THER/PROPH/DIAG INJ SC/IM Reviewed 11/17/2012 12:00 AM Toradol 30 Mg [facility]#5614-1758-29 Reviewed 11/17/2012 12:00 AM Bupivicaine, 30 ml [facility]#0836-2630-88 Reviewed 11/17/2012 12:00 AM INJECT TRIGGER POINTS 3/> Reviewed 11/17/2012 12:00 AM Imitrex 6mg [facility] #69828-495-33 Reviewed 11/17/2012 12:00 AM Norflex, Up to 60 Mg [facility]#63105-207-05 Reviewed 11/17/2012 12:00 AM N BLOCK INJ OCCIPITAL Reviewed 12/01/2012 12:00 AM INJECT TRIGGER POINTS 3/> Reviewed 05/27/2013 12:00 AM THER/PROPH/DIAG INJ SC/IM Reviewed 05/27/2013 12:00 AM Norflex, Up to 60 Mg [facility]#66641-597-15 Reviewed 06/07/2013 12:00 AM INJECT TRIGGER POINTS 3/> Reviewed 06/24/2013 12:00 AM THER/PROPH/DIAG INJ SC/IM Reviewed 06/24/2013 12:00 AM Norflex, Up to 60 Mg [facility]#52720-651-28 Reviewed 06/24/2013 12:00 AM INJECT TRIGGER POINTS 3/> Reviewed 06/24/2013 12:00 AM N BLOCK INJ OCCIPITAL Reviewed 07/08/2013 12:00 AM INJECT TRIGGER POINTS 3/> Reviewed 07/08/2013 12:00 AM THER/PROPH/DIAG INJ SC/IM Reviewed 07/08/2013 12:00 AM Norflex 30 mg IM [place]#87834-810-25 Reviewed 07/08/2013 12:00 AM THER/PROPH/DIAG INJ SC/IM Reviewed 07/22/2013 12:00 AM INJECT TRIGGER POINTS 3/> Reviewed 07/22/2013 12:00 AM THER/PROPH/DIAG INJ SC/IM Reviewed 07/22/2013 12:00 AM Norflex 30 mg IM ND#28609-888-42 Reviewed 07/22/2013 12:00 AM THER/PROPH/DIAG INJ SC/IM Reviewed 08/03/2013 12:00 AM INJ TRIGGER POINT 1/2 MUSCL Reviewed 08/03/2013 12:00 AM THER/PROPH/DIAG INJ SC/IM Reviewed 08/03/2013 12:00 AM Norflex 30 mg IM [facility]#72632-122-12 Reviewed 08/03/2013 12:00 AM Imitrex, 6mg [facility]#: 0220-0718-27 Reviewed 08/24/2013 12:00 AM INJECT TRIGGER POINTS 3/> Reviewed 08/24/2013 12:00 AM THER/PROPH/DIAG INJ SC/IM Reviewed 08/24/2013 12:00 AM Norflex 30 mg IM [facility]#44617-189-37 Reviewed 09/07/2013 12:00 AM INJECT TRIGGER POINTS 3/> Reviewed 09/07/2013 12:00 AM THER/PROPH/DIAG INJ SC/IM Reviewed 09/07/2013 12:00 AM Norflex 30 mg IM [facility]#17203-842-53 Reviewed 09/21/2013 12:00 AM Botox Toxin Type A, 1 unit [id number] Reviewed 09/21/2013 12:00 AM CHEMODENERV MUSC MIGRAINE Reviewed 09/23/2013 12:00 AM INJECT TRIGGER POINTS 3/> Reviewed 11/08/2013 12:00 AM N BLOCK INJ OCCIPITAL Reviewed 11/08/2013 12:00 AM Kenalog, Per 10 Mg [facility]#1920-1615-39 [facility] Medicare Reviewed 12/21/2013 12:00 AM Botox Toxin Type A, 1 unit [id number] Reviewed 12/21/2013 12:00 AM CHEMODENERV [facility] MIGRAINE Reviewed 03/25/2014 12:00 AM THER/PROPH/DIAG INJ SC/IM Reviewed 03/25/2014 12:00 AM Norflex, Up to 60 Mg [facility]#71247-329-31 Reviewed 05/17/2014 12:00 AM Interventional Pain Consult Reviewed 05/17/2014 12:00 AM Occupational Therapy Consult Reviewed 07/12/2014 12:00 AM DRAIN/INJ JOINT/BURSA W/O US Reviewed 07/12/2014 12:00 AM Kenalog, Per 10 Mg [facility]#5835-9499-17 Reviewed 10/11/2014 12:00 AM Botox Toxin Type A, 1 unit [id number] Reviewed 10/11/2014 12:00 AM CHEMODENERV [facility] MIGRAINE Reviewed Results Summary Not available. History [...] Sep 2011 8:20AM greater occipital neuralgia Sep 2011 12:57PM myofascial pain Jan 21 2012 8:13AM greater occipital neuralgia Jan 21 2012 8:13AM greater occipital neuralgia Jan 21 2012 9:26AM myofascial pain Nov 2011 10:49AM Headache Feb 06 2012 2:07PM myofascial [...] 17 2014 8:56AM Chronic low back pain Fe2014 8:56AM Memory difficulties May 17 2014 8:56AM Muscle tension headache May 17 2014 8:56AM Myofascial muscle pain May 17 2014 8:56AM Myofascial pain Jun 10 2014 [...] with status migrainosus Mar 14 2017 8:19AM Chronic migraine w/o aura, intractable, w status migrainosus Apr 29 2017 8: 28AM Payers Insurance Name Company Name Plan Name Plan Number Policy Number Policy Group Number Start Date Medicare Part B Medicare [place] [id number] Saturday, 2011 [facility] [id number] N/A Medicare RHC Medicare RHC [id number] Wednesday, 2011 Medicare Part A Medicare - Lab/Xray [id number] Friday, January 052010 [place] [facility] Medical Assistance Prog [id number] N/A History of Encounters Visit Date Visit Type Provider 04/29/2017 Procedures Israel Alvarez DO 03/14/2017 Office visit Israel Alvarez DO 01/31/2017 Procedures Israel Alvarez DO 11/07/2016 Procedures Ivelisse LANDAVERDE 08/08/2016 Procedures Ivelisse LANDAVERDE 05/09/2016 Procedures Ivelisse LANDAVERDE 02/08/2016 Procedures Ivelisse LANDAVERDE 11/17/2015 Office visit Ivelisse LANDAVERDE 11/09/2015 Procedures Ivelisse LANDAVERDE 08/10/2015 Procedures Ivelisse LANDAVERDE 04/10/2015 Procedures Ivelisse LANDAVERDE 02/02/2015 Office visit Penny Ayers MD 01/03/2015 Procedures Ivelisse LANDAVERDE 10/11/2014 Procedures Ivelisse Chente Teo HUNTP 08/02/2014 Office visit Ivelisse HUNTP 2014 Office visit Ivelisse HUNTP 07/19/2014 Office visit Ivelisse LANDAVERDE 07/12/2014 Office visit Penny Ayers MD 07/05/2014 Voided Ivelisse HUNTP 06/13/2014 Office visit Phani Naik MD 06/10/2014 Office visit Ivelisse LANDAVERDE 05/17/2014 Office visit Penny Ayers MD 03/25/2014 Procedures Ivelisse ArnaudLaurie HUNTP 12/21/2013 Office visit Ivelisse HUNTP 11/25/2013 Office visit Penny Ayers MD 10/29/2013 Office visit Ivelisse LANDAVERDE 10/05/2013 Office visit Ivelisse HUNTP 09/28/2013 Voided Ivelisse ArnaudLaurie HUNTP 09/23/2013 Office visit Ivelisse LANDAVERDE 09/21/2013 Office visit Ivelisse LANDAVERDE 09/07/2013 Office visit Ivelisse LANDAVERDE 08/24/2013 Office visit Ivleisse HUNTP 08/03/2013 Office visit Penny Ayers MD 07/22/2013 Office visit Ivelisse LANDAVERDE 07/08/2013 Office visit Ivelisse LANDAVERDE 06/24/2013 Office visit Ivelisse LANDAVERDE 06/07/2013 Office visit Ivelisse LANDAVERDE 05/27/2013 Office visit Penny Ayers MD 12/01/2012 Office visit Ivelisse LANDAVERDE 11/17/2012 Office visit Penny Ayers MD 09/16/2012 Office visit Olivia Cisneros COAL TOWER OPERATOR 09/02/2012 Office visit Olivia Cisneros COAL TOWER OPERATOR 08/19/2012 Office visit Olivia Cisneros COAL TOWER OPERATOR 08/06/2012 Office visit Penny Ayers MD 07/15/2012 Office visit Olivia Cisneros COAL TOWER OPERATOR 07/07/2012 Office visit Penny Ayers MD 07/01/2012 Office visit Olivia Cisneros COAL TOWER OPERATOR 06/03/2012 Office visit Olivia Cisneros COAL TOWER OPERATOR 05/21/2012 Office visit Penny Ayers MD 05/06/2012 Office visit Olivia Cisneros COAL TOWER OPERATOR 04/14/2012 Office visit Olivia Cisneros COAL TOWER OPERATOR 03/26/2012 Office visit Olivia Cisneros COAL TOWER OPERATOR 03/17/2012 Office visit Penny Ayers MD 03/03/2012 Office visit Olivia Cisneros COAL TOWER OPERATOR 02/06/2012 Office visit Penny Ayers MD 01/21/2012 [...]
== END 2017-06-15 08:19 | disposition home or self-care (01) ==
LOC: EDUNIT# 06:50 → ER 06:52
DX: S93.401A Sprain of unspecified ligament of right ankle, initial encounter (principal); J43.9 Emphysema, unspecified; I48.91 Unspecified atrial fibrillation; E78.00 Pure hypercholesterolemia, unspecified; I10 Essential (primary) hypertension; G43.909 Migraine, unspecified, not intractable, without status migrainosus; K21.9 Gastro-esophageal reflux disease without esophagitis; F41.9 Anxiety disorder, unspecified; F32.9 Major depressive disorder, single episode, unspecified; E11.40 Type 2 diabetes mellitus with diabetic neuropathy, unspecified; F17.210 Nicotine dependence, cigarettes, uncomplicated; Z87.19 Personal history of other diseases of the digestive system; Z87.440 Personal history of urinary (tract) infections; Z91.5 Personal history of self-harm; Z80.3 Family history of malignant neoplasm of breast; Z80.8 Family history of malignant neoplasm of other organs or systems; Z88.1 Allergy status to other antibiotic agents; Z88.0 Allergy status to penicillin; Z90.49 Acquired absence of other specified parts of digestive tract; Z88.6 Allergy status to analgesic agent; Z79.51 Long term (current) use of inhaled steroids; Z79.01 Long term (current) use of anticoagulants
CPT/HCPCS: 73610

== ENCOUNTER 2017-06-22 03:21 | Emergency (ER) | payer MEDICARE, MEDICAID ==
[~2017-06-22] VITALS: Ht 160 cm; Wt 68.0 kg
--- NOTE | 2017-06-22 03:38 | ED Lower Extremity ---
General Stated Complaint: R TOE AND ANKLE PAIN Source: patient (PT IS LIMITED HISTORIAN--PT TAKES NEMENDA AND ARICEPT, BUT DENIES HISTORY OF DEMENTIA. ), old records (ALL PMH IS FROM OLD RECORDS) History of Present Illness Date Seen by Provider: Jun 22, 2017 Time Seen by Provider: 03:32 Initial Comments PT ARRIVES VIA POV FELL IN A HOLE THIS AFTERNOON ( 06/21/17) AND TWISTED RIGHT FOOT AND ANKLE-- CLAIMS SHE WAS WEARING WALKING BOOT AT THE TIME STATES PAIN IS WORSE SINCE THEN LATER STATES IT'S BEEN WORSE FOR THE LAST 3 DAYS, BEFORE SHE "FELL IN HOLE" STATES "I CAN'T STAND IT AND I CAN'T SLEEP IT HURTS TO BAD"--RATES PAIN 01/14-- YET AMBULATES IN ON OWN WITHOUT DIFFICULTY, AND DROVE HERSELF HERE. HAS NOT TAKEN ANYTHING FOR PAIN --STATES "I CAN'T TAKE ANYTHING FOR PAIN" "BECAUSE OF THE MEDICATIONS I'M ON" SEEN HERE 06/15/17 AFTER TWISTING HER ANKLE, WAS PLACED IN A WALKING BOOT ( BUT APPEARS TO BE TOO LARGE FOR PT AND SHE STATES HER FOOT SLIDES ALL AROUND IN IT) CLAIMS SHE SEEN PAC[facility] DUNLAP THIS WEEK FOR FOLLOW UP--STATES "HE DIDN'T DO ANYTHING" PT HAS HISTORY OF NEUROPATHY AND TAKES GABAPENTIN 1200 MG TID PT STATES SHE HAS BEEN DIABETIC, BUT NO LONGER TAKES MEDICATIONS PT ALSO HAS COPD AND IS SUPPOSED TO BE ON CONTINUOUS O2, BUT ARRIVES AT ER WITHOUT ANY OXYGEN. PCP: ENRIQUE-EDWINA, PACHE[facility] DUNLAP Allergies and Home Medications Allergies Coded Allergies: bacitracin (Verified Allergy, Intermediate, "I BREAK OUT IN A RASH ALL OVER.", 08/26/16) neomycin (Verified Allergy, Intermediate, "I BREAK OUT IN A RASH ALL OVER. ", 08/26/16) polymyxin B (Verified Allergy, Intermediate, "I BREAK OUT IN A RASH ALL OVER.", 08/26/16) Penicillins (Verified Allergy, Unknown, NOT SURE KIND REACTION, 08/26/16) ibuprofen (Unverified Allergy, Unknown, 08/26/16) Home Medications Albuterol Sulfate 2.5 Mg/3 Ml Vial.neb, 2.5 MG NEB Q6H PRN for SHORTNESS OF BREATH, (Reported) Albuterol Sulfate 1 Puff Puff, 2 PUFF IH Q4H PRN for SHORTNESS OF BREATH, ( Reported) 1 PUFF = 90 MCG Alendronate Sodium 70 Mg Tablet, 70 MG PO Sa, (Reported) Alprazolam 0.5 Mg Tablet, 0.5 MG PO TID PRN for ANXIETY, (Reported) Apixaban 5 Mg Tablet, 5 MG PO BID, (Reported) Aripiprazole 5 Mg Tablet, 5 MG PO DAILY, (Reported) Aripiprazole 20 Mg Tablet, 20 MG PO DAILY, (Reported) TAKES ALONG WITH 5MG TABLET Baclofen 10 Mg Tablet, 10 MG PO BID, (Reported) Baclofen 20 Mg Tablet, 20 MG PO TID, (Reported) Budesonide/Formoterol Fumarate 10.2 Gm Hfa.aer.ad, 2 PUFF IH BID, (Reported) Cetirizine HCl 10 Mg Tablet, 10 MG PO DAILY, (Reported) Cholecalciferol (Vitamin D3) 50,000 Unit Capsule, 50,000 UNIT PO WEEK, (Reported ) Clonazepam 1 Mg Tablet, 1 MG PO HS, (Reported) Colesevelam HCl 3.75 Gm Powd.pack, 3.75 GM PO DAILY, (Reported) Diltiazem HCl 240 Mg Cap.er.deg, 240 MG PO DAILY, (Reported) Diphenoxylate HCl/Atropine 1 Each Tablet, 2 TAB PO TID, (Reported) Donepezil HCl 10 Mg Tablet, 10 MG PO DAILY, (Reported) Gabapentin 600 Mg Tablet, 600 MG PO TID, (Reported) Hydroxyzine HCl 25 Mg Tablet, 25 MG PO TID, (Reported) Magnesium Oxide 250 Mg Tablet, 250 MG PO DAILY, (Reported) Memantine HCl 10 Mg Tablet, 10 MG PO HS, (Reported) Metoprolol Succinate 25 Mg Tab.er.24h, 25 MG PO DAILY, (Reported) Mirabegron 50 Mg Tab.er.24h, 50 MG PO DAILY, (Reported) Montelukast Sodium 10 Mg Tablet, 10 MG PO HS, (Reported) Mv,Ca,Min/Iron Fum/FA/Vit K 1 Each Tablet, 1 EACH PO DAILY, (Reported) Nitroglycerin 0.4 Mg Tab.subl, 0.4 MG PO UD PRN for CHEST PAIN, (Reported) Nystatin 100,000 Unit/1 Ml Oral.susp, 100,000 UNIT PO ACHS, (Reported) Omeprazole 40 Mg Capsule.dr, 40 MG PO DAILY, (Reported) Pantoprazole Sodium 40 Mg Tablet.dr, 40 MG PO BID, (Reported) Primidone 250 Mg Tablet, 250 MG PO TID, (Reported) Rifaximin 550 Mg Tablet, 550 MG PO TID, (Reported) Ropinirole HCl 2 Mg Tablet, 2 MG PO HS, (Reported) Simvastatin 20 Mg Tablet, 20 MG PO HS, (Reported) Tiotropium Farley 1 Inh Aerp, 1 CAP IH HS, (Reported) Tramadol HCl 50 Mg Tablet, 50 MG PO Q4H Prescribed by: SHANITA AMBROSIO on 06/22/17 0409 Trazodone HCl 150 Mg Tablet, 150 MG PO HS, (Reported) Trospium Chloride 20 Mg Tablet, 20 MG PO DAILY, (Reported) Vortioxetine Hydrobromide 20 Mg Tablet, 20 MG PO DAILY, (Reported) Zolpidem Tartrate 5 Mg Tablet, 5 MG PO HS, (Reported) Patient Home Medication List Home Medication List Reviewed: Yes Constitutional: no symptoms reported Musculoskeletal: see HPI Skin: no symptoms reported Psychiatric/Neurological: No Symptoms Reported, Denies Numbness, Denies Paresthesia, Denies Tingling Past Unlwhvf-Uhwslt-[id number] Hx Patient Social History Alcohol Use: Denies Use Recreational Drug Use: No Smoking Status: Current Everyday Smoker (1 PPD) Type Used: Cigarettes (1 PPD) 2nd Hand Smoke Exposure: Yes Recent Foreign Travel: No Contact w/Someone Who Travel: No Recent Hopitalizations: No Immunizations Up To Date Tetanus Booster (TDap): Unknown PED Vaccines UTD: No Date of Pneumonia Vaccine: Nov 11, 2016 Date of Influenza Vaccine: Dec 06, 2016 Seasonal Allergies Seasonal Allergies: Yes Surgeries History of Surgeries: Yes (EXPLORATORY LAP FOR PRE-CANCEROUS LESION OF UTERUS 1969; KISHA 1970; BTL 1981;LEFT ELBOW SURGERY; C-SPINE X 3;HIATAL HERNIA REPAIR 2006 OR 2008; LUNG SURGERY; LEFT SHOULDER; CARPAL TUNNEL; TRIGGER FINGER;LEFT HAND SURGERY 2009; BILATERAL THUMB SURGERY 2009; LEFT WRIST SURGERY 2009; LEFT THUMB SPUR 2009; MULTIPLE EGD'S AND ESOPHAGEAL DILATIONS; CARDIAC AND PERIPHERAL CATHS; CARDIAC ABLATION 2015) Surgeries: Abdominal, Appendectomy, Bladder Surgery, Cardiac, Gallbladder, Orthopedic, Pancreatic, Tubal Ligation Respiratory History of Respiratory Disorde: Yes (OXYGEN ALL THE TIME) Respiratory Disorders: Asthma, COPD, Emphysema Cardiovascular History of Cardiac Disorders: Yes (CARDIAC ABLATION 2016) Cardiac Disorders: Atrial Fibrillation, Coronary Artery Disease, High Cholesterol, Hypertension, Irregular Heartbeat, Palpitations, Peripheral Vascular Neurological History of Neurological Disord: Yes (PARESTHESIAS OF BILAT LOWER EXT DUE TO FORAMINAL STENOSIS; PERIPHERAL NEUROPATHY) Neurological Disorders: Dementia, Headaches /Migraines, Neuropathy 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 System Hx 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 Disorders: No Sexually Transmitted Disease: No HIV/AIDS: No VALVE SETTER History: Menopausal Genitourinary History of Genitourinary Disor: Yes (OVERACTIVE BLADDER) Genitourinary Disorders: UTI-Chronic Gastrointestinal History of Gastrointestinal Di: Yes (FREQ DIARRHEA--IBS-D; DUMPING SYNDROME; ESOPHAGEAL STRICTURES/DILATIONS; POSSIBLE GASTROPARESIS; DYSPHAGIA) Gastrointestinal Disorders: Gastroesophageal Reflux, Celaya's Esophagus, Hiatal Hernia, Ulcer Musculoskeletal History of Musculoskeletal Dis: Yes (CHRONIC NECK AND BACK PAIN, CHRONIC HIP PAIN) Musculoskeletal Disorders: Degenerate Disk Disease, Osteoporosis, Arthritis, Fibromyalgia, Chronic Back Pain Endocrine History of Endocrine Disorders: Yes (DIET CONTROLLED NIDDM--NO LONGER ON MEDICATIONS; THYROID NODULES) Endocrine Disorders: Hypothyroidsim, Diabetes, Non-Insulin dep HEENT History of HEENT Disorders: Yes (DENTURES) HEENT Disorders: Dysphagia, Glaucoma Loss of Vision: Bilateral Hearing Impairment: Hard of Hearing Cancer History of Cancer: No Psychosocial History of Psychiatric Problem: Yes (ATTEMPTED SUICIDE > 26 YRS AGO) Behavioral Health Disorders: Anxiety, Suicide Attempts, Depression Integumentary History of Skin or Integumenta: Yes Skin/Integumentary Disorders: Psoriasis Blood Transfusions History of Blood Disorders: No Adverse Reaction to a Blood Tr: No Family Medical History Significant Family History: No Pertinent Family Hx Family Medial History: Cardiovascular disease G8 BROTHER (TRIPLE BYPASS) Diabetes mellitus 19 MOTHER FH: COPD (chronic obstructive pulmonary disease) 19 MOTHER FH: breast cancer 19 MOTHER FHx: brain cancer 19 FATHER Physical Exam Vital Signs Vital Signs - First Documented 06/22/17 03:30 Temp 97.2 Pulse 97 Resp 22 B/P (MAP) 122/92 (102) Pulse Ox 93 O2 Delivery Room Air Capillary Refill : General Appearance: WD/WN, no apparent distress, other (REEKS OF CIGARETTES. DOES NOT APPEAR TO BE IN ANY DISCOMFORT, AND AMBULATES IN WITHOUT DIFFICULTY. CONSTANT MOUTH MOVEMENTS AND LIP-LICKING) Ankles: right ankle other (TENDERNESS AND SWELLING TO RIGHT LATERAL MALLEOLUS-- EXAGGERATED PAIN RESPONSE) Feet: right foot other (TENDERNESS TO ALL TOES. NO EXTERNAL EVIDENCE OF TRAUMA. MOTOR/SENSORY/VASCULAR INTACT. EXAGGERATED PAIN RESPONSE) Neurologic/Tendon: normal sensation, normal motor functions, normal tendon functions Neurologic/Psychiatric: chaser tar II-XII nml as tested, no motor/sensory deficits, alert, normal mood/affect, oriented x 3 Skin: normal color, warm/dry Progress/Results/Core Measures Results/Orders My Orders Orders - SHANITA AMBROSIO DO Foot, Right, 3 View (06/22/17 03:36) Ankle, Right, 3 Views (06/22/17 03:36) Rx-Tramadol Hcl (Rx-Ultram) (06/22/17 04:04) Vital Signs/I&O Vital Sign - Last 12Hours 06/22/17 06/22/17 03:30 04:16 Temp 97.2 97.2 Pulse 97 97 Resp 22 22 B/P (MAP) 122/92 (102) 122/92 (102) Pulse Ox 93 93 O2 Delivery Room Air Progress Note : Progress Note PT IS WEARING A SIZE MEDIUM WALKING BOOT, WHICH IS TOO BIG FOR HER FOOT. THERE ARE NO SMALLER WALKING BOOTS AVAILABLE HERE AT THIS TIME--WILL WRITE RX FOR SMALLER SIZE Diagnostic Imaging Comments XRAYS RIGHT FOOT AND ANKLE--NO ACUTE PROCESS, PENDING RADIOLOGIST REVIEW Reviewed: Reviewed by Me Departure Impression Impression: Primary Impression: Right ankle sprain Additional Impression: Peripheral neuropathy Disposition: 01 HOME, SELF-CARE Condition: Stable Departure-Patient Inst. Referrals: SENAIT DUNLAP (PCP) Primary Care Physician RANI BRAY MD Patient Instructions: Ankle Sprain (DC), Diabetic Neuropathy (DC), Peripheral Neuropathy (DC) Add. Discharge Instructions: WEAR WALKING BOOT AT ALL TIMES--GO TO [facility] [facility] TO OBTAIN A SMALLER WALKING BOOT ELEVATE FOOT MUCH POSSIBLE FOLLOW UP WITH DR. BRAY/[address] [place] [address] FOR FURTHER CARE Scripts [Walking Boot] No Conflict Check #1 Prov: SHANITA AMBROSIO DO 06/22/17 Tramadol HCl (Ultram) 50 Mg Tablet 50 MG PO Q4H, #20 TAB Prov: SHANITA AMBROSIO [place] DO 06/22/17 DAILYSHANITA Hidalgo DO Jun 22, 2017 03:38
[2017-06-22] MEDS ORDERED: RX-TRAMADOL 50 MG (ULTRAM) TAB PPK#4 PO STA (04:04)
[2017-06-22] MEDS ORDERED: TRAM-42 PO (04:09)
[2017-06-22] MEDS ORDERED: WALKING BOOT (04:13)
[2017-06-22 04:16] VITALS: BP 122/92
--- NOTE | 2017-06-22 07:28 | Diagnostic Imaging Report ---
INDICATION: Right foot pain. FINDINGS: 3 views of right foot show no fracture, dislocation or other acute abnormalities. IMPRESSION: Negative right foot. Dictated by: Dictated on workstation # [id number]
--- NOTE | 2017-06-22 07:46 | Diagnostic Imaging Report ---
INDICATION: Right ankle injury Three views of the right ankle show no fracture, dislocation or other acute abnormalities. IMPRESSION: Negative right ankle Dictated by: Dictated on workstation # [id number]
== END 2017-06-22 04:16 | disposition home or self-care (01) ==
LOC: EDUNIT# 03:21 → ER 03:23
DX: S93.401A Sprain of unspecified ligament of right ankle, initial encounter (principal); E11.40 Type 2 diabetes mellitus with diabetic neuropathy, unspecified; F41.9 Anxiety disorder, unspecified; F32.9 Major depressive disorder, single episode, unspecified; J43.9 Emphysema, unspecified; I25.10 Atherosclerotic heart disease of native coronary artery without angina pectoris; E78.00 Pure hypercholesterolemia, unspecified; I48.91 Unspecified atrial fibrillation; G43.909 Migraine, unspecified, not intractable, without status migrainosus; F03.90 Unspecified dementia, unspecified severity, without behavioral disturbance, psychotic disturbance, mood disturbance, and anxiety; E03.9 Hypothyroidism, unspecified; M81.0 Age-related osteoporosis without current pathological fracture; K21.9 Gastro-esophageal reflux disease without esophagitis; F17.210 Nicotine dependence, cigarettes, uncomplicated; Z90.49 Acquired absence of other specified parts of digestive tract; Z98.51 Tubal ligation status; Z98.890 Other specified postprocedural states; Z87.19 Personal history of other diseases of the digestive system; Z91.5 Personal history of self-harm; Z88.0 Allergy status to penicillin; Z88.1 Allergy status to other antibiotic agents; Z88.6 Allergy status to analgesic agent; X50.0XXA Overexertion from strenuous movement or load, initial encounter
CPT/HCPCS: 73610; 73630

== ENCOUNTER 2017-07-02 08:54 | Outpatient (CLI) | payer MEDICARE, MEDICAID ==
[~2017-07-02] VITALS: Ht 160 cm; Wt 71.7 kg
[~2017-07-02 08:54] MED LIST changes: +TRAM-42 PO; +WALKING BOOT
== END 2017-07-02 09:39 ==
LOC: PREOP 08:54
PROVIDERS: ATTEND Surgery
DX: Z01.818 Encounter for other preprocedural examination (principal); R13.10 Dysphagia, unspecified; K21.9 Gastro-esophageal reflux disease without esophagitis

== ENCOUNTER 2017-07-04 11:54 | Day surgery (SDC) | payer MEDICARE, MEDICAID ==
[~2017-07-04] VITALS: Ht 160 cm; Wt 71.7 kg
--- OUTSIDE RECORDS SUMMARY | 2017-07-04 11:59 | XMS REPORT | Continuity of Care Document ---
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 [place] [facility] [place] Active [facility] [id number] DENIS FRANCO 09/23/2016 09/23/2016 Active [facility] SPECIMEN [id number] 01/23/2017 01/23/2017 Active [facility] SPECIMEN [id number] CELESTINA NOWAK 01/23/2017 Active [facility] OUTPATIENT [id number] KEYSHA WHEELER 04/10/20172017 Active [facility] OUTPATIENT [id number] CELESTINA NOWAK 05/15/20172017 Active [facility] SPECIMEN [id number] KEYSHA WHEELER 05/20/20172017 Active [facility] OUTPATIENT [id number] KWAME BRADLEY 05/28/20172017 Active [facility] OUTPATIENT [id number] 06/04/2017 Active [facility] OP SURGERY [id number] KWAME BRADLEY 06/13/20172017 Active [facility] O KWAME BRADLEY Active [facility] Procedures Plan of Care Social History Assessment and Plan Family History Advance Directives Functional Status
[2017-07-04] MEDS ORDERED: NS IV 500 ML 500 ML IV PRN (12:05)
[2017-07-04 12:10] VITALS: BP 111/68
[2017-07-04] MEDS ORDERED: LIDOCAINE JELLY 2% (XYLOCAINE) 5 ML TUBE MM PRN (12:15)
[2017-07-04] MEDS ORDERED: HURRICAINE EXT TUBE (BENZOCAINE) XX PRN (12:15)
[2017-07-04] MEDS ORDERED: fentaNYL INJECTION 100 MCG/2 ML AMP IVP PRN (12:15)
[2017-07-04] MEDS ORDERED: MIDAZOLAM 2 MG/2 ML (VERSED) VIAL IVP PRN (12:15)
--- OUTSIDE RECORDS SUMMARY | 2017-07-04 12:18 | XMS REPORT ---
Author Author FAHAD CLEMENT [facility] Address [address] [place] [address] Care Team Providers Care Ladle Puller Name Role Phone FAHAD CLEMENT Unavailable PROBLEMS Type Condition ICD9-CM Code LTS65-LY Code Onset Dates Condition Status SNOMED Code Problem Generalized anxiety disorder F41.1 Active 603046309 Problem Paroxysmal atrial fibrillation I48.0 Active 834391195 Problem Barretts esophagus K22.70 Active 252753204 Problem Coronary artery disease involving wales coronary artery of wales 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 I25.118 Active 9021071924267 Problem History of common bile duct surgery Z98.89 Active 099398941 Problem Colon polyp K63.5 Active 86611876 Problem 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 Active 90805435 Problem Bilateral low back pain without sciatica M54.5 Active 713213359 Problem Screening breast examination Z12.39 Active 624161430 Problem Bipolar affective disorder, currently depressed, moderate F31.32 Active 428741756 Problem Postmenopausal Z78.0 Active 96129450 Problem Acute exacerbation of chronic obstructive pulmonary disease (COPD) J44.1 Active 920092613 Problem Osteopenia M85.80 Active 003120715 Problem Crohn''s disease without complication, unspecified gastrointestinal tract location K50.90 Active 74574511 Problem Unspecified atherosclerosis of wales arteries of extremities, unspecified extremity I70.209 Active 868394518768048 Problem Type 2 diabetes mellitus with diabetic peripheral angiopathy without gangrene E11.51 Active 297316078 Problem Atherosclerotic heart disease of wales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 I25.118 Active 9040552749898 Problem Atherosclerosis of wales artery of both lower extremities with intermittent claudication I70.213 Active 321396775022412 Problem Arthritis M19.90 Active 5912012 Problem Vascular dementia without behavioral disturbance F01.50 Active 71766931011536523 Problem Hyperlipidemia E78.5 Active 74407249 Problem Cigarette nicotine dependence without complication F17.210 Active 46913931 Problem Essential tremor G25.0 Active 47376054 Problem Other chronic pancreatitis K86.1 Active 364547843 Problem Chronic atrial fibrillation I48.2 Active 502013206 Problem Type 2 diabetes mellitus with diabetic neuropathy, without long-term current use of insulin E11.40 Active 53443063 Problem Chronic obstructive pulmonary disease with acute lower respiratory infection J44.0 Active 146621407 Problem Major depressive disorder, recurrent episode, moderate F33.1 Active 070900095 Problem Unspecified psychosis F29 Active 96599120 Problem Chronic pain syndrome G89.4 Active 572557212 Problem Migraine without aura and without status migrainosus, not intractable G43.009 Active 766703358 Problem COPD (chronic obstructive pulmonary disease) J44.9 Active 94642670 Problem Dementia without behavioral disturbance, unspecified dementia type F03.90 Active 44612221 Problem Cervicalgia M54.2 Active 6866203088327 Problem Xeroderma Q80.9 Active 93985959 Problem Osteoporosis M81.0 Active 76821305 Problem Postconcussion syndrome F07.81 Active 97741084 Problem Gastroparesis K31.84 Active 476382131 Problem Chronic fatigue R53.82 Active 81199028 Problem Migraine without aura and with status migrainosus, not intractable G43.001 Active 430342466 Problem Gastroesophageal reflux disease, esophagitis presence not specified K21.9 Active 808029783 ALLERGIES No Information ENCOUNTERS Encounter Location Date Diagnosis [place] [address] [address] Jul, [place] [address] [place] [id number] [place] [address] 34246- 0664 Jul, [facility] [address] [place] [id number] [place] [address] 69489- 2571 Jun, [facility] [address] 16834- 7786 Jun, Gastroenteritis K52.9 [facility] [address] [place] [id number] [place] [address] 82899- 3712 Jun, Gastroenteritis K52.9 [facility] [address] 43074- 8862 Jun, [facility] [address] [address] Jun, [place] [address] [place] [address] 63995- 9119 Jun, Sprain of right ankle, unspecified ligament, initial encounter S93.401A ; Type 2 diabetes mellitus with diabetic neuropathy, without long-term current use of insulin E11.40 ; Atherosclerosis of wales artery of both lower extremities with intermittent claudication I70.213 ; Atherosclerotic heart disease of wales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 I25.118 ; Chronic atrial fibrillation I48.2 and Crohn''s disease without complication, unspecified gastrointestinal tract location K50.90 [facility] [address], [place] [address] 17 Jun, 2017 Cough R05 and Chronic obstructive pulmonary disease with acute lower respiratory infection J44.0 [place] [address] [place] [address] 61886- 7102 16 Jun, 2017 [place] [address] [place] [address] 17014- 3781 15 Jun, 2017 Coughing R05 ; Unspecified atherosclerosis of wales arteries of extremities, unspecified extremity I70.209 ; Type 2 diabetes mellitus with diabetic peripheral angiopathy without gangrene E11.51 ; Crohn''s disease without complication, unspecified gastrointestinal tract location K50.90 ; Other chronic pancreatitis K86.1 and Chronic atrial fibrillation I48.2 [facility] [address], [place] [address] Jun, [place] [address] [place] [id number] [place] [address] 01802- 1132 Jun, Bipolar affective disorder, currently depressed, moderate F31.32 ; Vascular dementia without behavioral disturbance F01.50 and Generalized anxiety disorder F41.1 [place] [address], [place] [address] 05[address] May, Generalized anxiety disorder F41.1 [place] [address] [address] 7130 May, [facility] [address] [place] [id number] [place] [address] 74617- 2978 May, [facility] [address] [place] [id number] [place] [address] 00360- 8929 May, Coughing R05 [place] [address] [place] [id number] [place] [address] 24084- 2575 May, [place] [address] [place] [id number] [place] [address] 30132- 1235 May, Bipolar affective disorder, currently depressed, moderate F31.32 ; Vascular dementia without behavioral disturbance F01.50 and Generalized anxiety disorder F41.1 [place] [address] [place] [id number] [place] [address] 67054- 8261 Apr, Generalized anxiety disorder F41.1 [place] [address] [place] [id number] [place] [address] 42453- 6777 Apr, [place] [address] [place] [id number] [place] [address] 71764- 2315 Apr, Vascular dementia without behavioral disturbance F01.50 ; Generalized anxiety disorder F41.1 and Bipolar affective disorder, currently depressed, moderate F31.32 [place] [address] [place] [address] 73562- 0790 Apr, Generalized anxiety disorder F41.1 [facility] [address] [place] [address] 18395 -7580 Apr, Cough R05 and Acute exacerbation of chronic obstructive pulmonary disease (COPD) J44.1 [place] [address] [place] [id number] [place] [address] 37000- 5775 Apr, [facility] [id number] [place] [address] 97258 -4928 Mar, Cough R05 and Cigarette nicotine dependence without complication F17.210 [place] [address], [place] [address]- 4933 Mar, [place] [address] [place] [id number] [place] [address] 25580- 3570 Feb, Generalized anxiety disorder F41.1 ; Major depressive disorder, recurrent episode, moderate F33.1 ; Vascular dementia without behavioral disturbance F01.50 and Unspecified psychosis F29 [place] [address] [place] [id number] [place] [address] 65940- 9023 Feb, [place] [address] [place] [id number] [place] [address] 37496- 1363 Feb, [place] [address] [place] [id number] [place] [address] 31509- 1981 Feb, Generalized anxiety disorder F41.1 [place] [address] [place] [id number] [place] [address] 11450- 3144 Feb, Generalized anxiety disorder F41.1 [place] [address] [place] [id number] [place] [address] 55350- 5534 Feb, Dizziness R42 ; Chronic fatigue R53.82 ; Postconcussion syndrome F07.81 ; Fall, initial encounter W19.XXXA and Disorientation R41.0 [place] [address] [place] [id number] [place] [address] 64605- 2194 03 Feb, 2017 Postconcussion syndrome F07.81 ; Injury of head, initial encounter S09.90XA ; Fall, initial encounter W19.XXXA ; Disorientation R41.0 and Acute cystitis with hematuria N30.01 [place] [address] [place] [address] 80215- 7988 Jan, Gastroesophageal reflux disease, esophagitis presence not specified K21.9 ; Post-menopausal Z78.0 and Migraine without aura and without status migrainosus, not intractable G43.009 [place] [address] [place] [address] 29583- 2559 Jan, [place] [address] [place] [id number] [place] [address] 94369- 6891 Jan, Generalized anxiety disorder F41.1 ; Major depressive disorder, recurrent episode, moderate F33.1 ; Vascular dementia without behavioral disturbance F01.50 and Unspecified psychosis F29 [facility] [address] [place] [id number] [place] [address] 24511- 6237 Jan, Pneumonia of left lower lobe due to infectious organism J18.1 [facility] [address] [place] [id number] [place] [address] 14522- 8057 Jan, Migraine without aura and with status migrainosus, not intractable G43.001 [facility] [address] [place] [id number] [place] [address] 69728 -0604 Jan, Migraine without aura and without status migrainosus, not intractable G43.009 [place] [address] [place] [id number] [place] [address] 74609- 8965 Dec, Hematoma T14.8 [facility] [address] [place] [id number] [place] [address] 44174- 6853 Dec, [facility] [address] [place] [id number] [place] [address] 42110 -9814 Nov, Fatigue, unspecified type R53.83 [place] [address] [place] [id number] [place] [address] 93358- 3800 Nov, Scabies B86 and Coronary artery disease involving wales coronary artery of wales 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 I25.118 [facility] [address] [place] [id number] [place] [address] 94823- 9537 Nov, [place] [address] 58437- 1964 Nov, [facility] [address] [place] [id number] [place] [address] 52403- 5258 Oct, [place] [address] [place] [id number] [place] [address] 08330- 3310 Oct, Generalized anxiety disorder F41.1 and Major depressive disorder, recurrent episode, moderate F33.1 [facility] [address] [place] [id number] [place] [address] 43668- 0587 Oct, Cramp of both lower extremities R25.2 [facility] [address] [place] [id number] [place] [address] 66463- 7134 Oct, Leg cramps R25.2 [facility] [address] [place] [id number] [place] [address] 56705- 9663 Oct, Chronic pain syndrome G89.4 [place] [address] [place] [id number] [place] [address] 03275- 0174 Oct, [facility] [address] [place] [id number] [place] [address] 01868- 4653 Oct, [place] [address] [place] [id number] [place] [address] 64491- 5829 Oct, Routine gynecological examination Z01.419 and Screening for breast cancer Z12.31 [place] [address] [place] [id number] [place] [address] 56959- 1828 Sep, Diarrhea R19.7 [place] [address] [place] [id number] [place] [address] 61010- 7010 Sep, Back pain M54.9 [place] [address] [place] [id number] [place] [address] 70479- 3934 Sep, [facility] [address] [place] [id number] [place] [address] 19451- 4143 Sep, [facility] [address] [place] [id number] [place] [address] 97866 -6778 August, Xeroderma Q80.9 [facility] [address] [place] [id number] [place] [address] 98000- 4711 August, Dementia without behavioral disturbance, unspecified dementia type F03.90 [facility] [address] [place] [id number] [place] [address] 11518- 9290 August, Chronic pain syndrome G89.4 [place] [address] 68513- 8726 August, [place] [address] 59941- 7425 August, Hyperlipidemia E78.5 ; Other fatigue R53.83 and Other specified hypotension I95.89 [facility] [address] 14250 -0255 August, Dysuria R30.0 ; Other fatigue R53.83 and Other specified hypotension I95.89 [place] [address] 94234- 4366 August, [place] [address] 60199- 2217 Jul, Pain in left knee M25.562 and Gastroenteritis K52.9 [place] [address] 94250- 9886 Jul, [place] [address] 81631- 1112 Jul, Diarrhea R19.7 [facility] [place] [address] 51109 -9931 Jul, Spider bite, accidental or unintentional, initial encounter T63.301A [place] [address] 72527- 5080 Jul, Primary osteoarthritis of right knee M17.11 and Arthritis M19.90 [place] [address] 89852- 2468 Jul, Generalized anxiety disorder F41.1 and Major depressive disorder, recurrent episode, moderate F33.1 [place] [address] 27961- 1920 07 Jul, 2016 Type 2 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 and Temporal headache R51 [facility] [address] 32253- 4546 06 Jul, 2016 Back pain M54.9 [facility] [address] 28867- 5056 05 Jul, 2016 [facility] [address] 81215- 4888 Jul, [place] [address] 73704- 7364 30 Jun, 2016 Nausea R11.0 [facility] [address] 50898 -0428 Jun, Acute suppurative otitis media of both ears without spontaneous rupture of tympanic membranes, recurrence not specified H66.003 and COPD exacerbation J44.1 [place] [address] 95229- 7581 Jun, Generalized anxiety disorder F41.1 [place] [address] 38021- 5055 16 Jun, 2016 [facility] [address] 76478 -4345 Jun, [facility] [address] 97466 -7098 Jun, Shortness of breath R06.02 and COPD exacerbation J44.1 [place] [address] 69647- 1447 10 Jun, 2016 Eczema, unspecified type L30.9 [place] [address] 10823- 1983 09 Jun, 2016 [place] [address] 60215- 9261 24 May, 2016 [facility] [address] 30985- 5508 May, Muscle cramping R25.2 [facility] [address] [place] [id number] [place] [address] 05737- 1883 13 May, 2016 [facility] [address] [place] [id number] [place] [address] 37630- 8803 Apr, Diarrhea R19.7 [facility] [address] [place] [id number] [place] [address] 09545- 3400 Apr, [facility] [address] 57659- 2239 Apr, Chronic pain syndrome G89.4 [place] [address] 74361- 9550 Apr, Cramp of both lower extremities R25.2 and Vascular dementia without behavioral disturbance F01.50 [place] [address] [place] [id number] [place] [address] 73598- 9891 Apr, Type 2 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 and Cigarette nicotine dependence without complication F17.210 [place] [address] [place] [id number] [place] [address] 34242- 3968 Mar, Generalized anxiety disorder F41.1 [place] [address] [place] [id number] [place] [address] 45681- 4763 Feb, Generalized anxiety disorder F41.1 and Major depressive disorder, recurrent episode, moderate F33.1 [facility] [address] [place] [id number] [place] [address] 34137- 9518 Feb, [facility] [address] [place] [id number] [place] [address] 99770 -1042 Feb, Dysuria R30.0 and Acute cystitis with hematuria N30.01 [facility] [address] [place] [id number] [place] [address] 68497- 9345 Jan, [facility] [address] [place] [id number] [place] [address] 45041- 0217 Jan, [facility] [address] [place] [address]- 8807 Jan, [facility] [address] [place] [id number] [place] [address] 78072- 9784 Jan, [facility] [address] [place] [id number] [place] [address] 30217 -3690 10 Jan, 2016 Wasp sting, accidental or unintentional, initial encounter T63.461A [facility] [address] 49479- 4313 Jan, Encounter for immunization Z23 [facility] [address] 57751- 2670 Jan, [facility] [address] 15284- 8119 Jan, [facility] [address] 46407- 6254 28 Dec, 2015 Generalized anxiety disorder F41.1 and Major depressive disorder, recurrent episode, moderate F33.1 [facility] [address] [place] [id number] [place] [address] 67010- 0765 21 Dec, 2015 Routine gynecological examination Z01.419 ; Postmenopausal Z78.0 ; Screening breast examination Z12.39 ; Osteopenia M85.80 and Breast cancer screening Z12.39 [facility] [address] [place] [id number] [place] [address] 41610- 5230 20 Dec, 2015 [facility] [address] [place] [id number] [place] [address] 63458- 0678 19 Dec, 2015 [facility] [address] [place] [id number] [place] [address] 31789- 1589 16 Dec, 2015 [facility] [address] 45977- 9435 16 Dec, 2015 [facility] [address] [place] [id number] [place] [address] 05874- 8886 14 Dec, 2015 [facility] [address] 10194- 1593 Dec, [facility] [address] [place] [id number] [address]- 5126 Nov, [facility] [address], [place] [address] Nov, Cough R05 ; Other viral agents as the cause of diseases classified elsewhere B97.89 and Acute upper respiratory infection, unspecified J06.9 [facility] [address], [place] [address]- 0283 Nov, [facility] [address], [place] [address]- 9541 Nov, [facility] [address], [place] [address]- 7760 Nov, [facility] [address], [place] [address]- 9495 Nov, [facility] [address], [place] [address]- 0766 Nov, [facility] [address], [place] [address]- 4764 Oct, [facility] [address], [place] [address]- 7174 Oct, [facility] [address], [place] [address]- 1085 Oct, [facility] [address], [place] [address]- 7196 Oct, Chronic pain syndrome G89.4 [facility] [address] [place] [address] 94942- 8285 Sep, Generalized anxiety disorder F41.1 and Major depressive disorder, recurrent episode, moderate F33.1 [facility] [address] [address]- 4746 Sep, [facility] [address] [place] [id number] [place] [address] 98643- 8490 20 Sep, 2015 [place] [address] [place] [id number] [place] [address] 08978- 7881 14 Sep, 2015 Generalized anxiety disorder F41.1 [place] [address] [place] [id number] [place] [address] 53549- 7888 13 Sep, 2015 Cramp of both lower extremities R25.2 and Cervicalgia M54.2 [place] [address] 15006- 2945 06 Sep, 2015 Generalized anxiety disorder F41.1 [place] [address] [place] [id number] [place] [address] 12383- 8432 Sep, [facility] [place] [address] [place] [id number] [place] [address] 04898 -8948 August, Rash R21 ; Itching L29.9 and Allergic response, subsequent encounter T78.40XD [place] [address] [place] [id number] [place] [address] 66833- 0933 August, Primary insomnia F51.01 [facility] [address] [place] [id number] [place] [address] 42354 -2096 August, Rash R21 ; Itching L29.9 and Allergic response, initial encounter T78.40XA [place] [address] [place] [id number] [place] [address] 03768- 1212 August, [place] [address] 29064- 9172 August, Cramp of both lower extremities R25.2 [place] [address] [place] [id number] [place] [address] 65909- 7895 August, Back pain M54.9 [place] [address] [place] [id number] [place] [address] 63408- 6627 August, [place] [address] [place] [id number] [place] [address] 81399- 7803 August, [facility] [address], [place] [address]4698 August, Cramp of both lower extremities R25.2 [facility] [address], [place] [address]- 3655 August, [facility] [address], [place] [address]- 9586 August, Syncope R55 ; Paroxysmal atrial fibrillation I48.0 ; Dementia without behavioral disturbance, unspecified dementia type F03.90 and Chronic pain syndrome G89.4 [facility] [address] [place] [id number] [address]- 0363 August, Type 2 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 and Syncope R55 [facility] [address], [place] [address]- 4957 Jul, [facility] [address] [place] [id number] [place] [address] 88934- 5146 Jul, [facility] [address], [place] [address]- 1776 Jul, [facility] [address], [place] [address]- 5096 Jul, [facility] [address], [place] [address]- 7024 Jul, [facility] [address], [place] [address]- 0969 Jul, UTI (urinary tract infection) N39.0 [facility] [address] [address]- 1451 Jul, [facility] [address], [place] [address]- 8837 Jul, Major depressive disorder, recurrent episode, moderate F33.1 and Generalized anxiety disorder F41.1 [facility] [address], [place] [address]- 1001 Jul, Generalized anxiety disorder F41.1 [facility] [address] [address]- 5395 14 Jul, 2015 Diarrhea R19.7 [facility] [address], [place] [address]- 6234 14 Jul, 2015 [facility] [address], [place] [address]- 8088 Jun, [facility] [address] [place] [id number] [place] [address] 05710- 6887 Jun, Eczema L30.9 [facility] [id number] [place] [address] 94891- 1271 Jun, [facility] [id number] [place] [address] 28570- 5266 Jun, COPD (chronic obstructive pulmonary disease) J44.9 [facility] [id number] [place] [address] 86790- 3215 Jun, [facility] [id number] [place] [address] 87083- 9391 Jun, Major depressive disorder, recurrent episode, moderate F33.1 and Generalized anxiety disorder F41.1 [facility] [address], [place] [address] 2432 May, [facility] [id number], [place] [address]- 4657 May, UTI (urinary tract infection) N39.0 [facility] [address], [place] [address] 8507 17 May, 2015 [facility] [address], [place] [address]- 9401 May, [facility] [address], [place] [address]- 5043 May, [facility] [id number] [place] [address] 45176- 6081 May, [facility] [id number] [place] [address] 36543- 9383 Apr, Major depressive disorder, recurrent episode, moderate F33.1 and Generalized anxiety disorder F41.1 [facility] [id number] [place] [address] 22406- 1507 Apr, COPD (chronic obstructive pulmonary disease) J44.9 [facility] [id number] [place] [address] 01517- 8215 Apr, [facility] [id number] [place] [address] 94665- 4354 Apr, Atrial flutter I48.92 [facility] [id number] [place] [address] 39105- 7878 Apr, [facility] [id number] [place] [address] 37913- 7468 Apr, [facility] [id number] [place] [address] 41762- 5413 Mar, [facility] [id number] [place] [address] 80526- 1904 Mar, [facility] [id number] [place] [address] 69448- 1184 Mar, [facility] [id number] [place] [address] 08409- 1250 Mar, Hyperlipidemia E78.5 ; Type 2 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 ; Major depressive disorder, recurrent episode, moderate F33.1 and Chronic pain syndrome G89.4 [facility] [id number] [place] [address] 87293- 0288 Mar, [facility] [id number] [place] [address] 40321- 5213 14 Mar, 2015 [facility] [id number] [place] [address] 05025- 1759 Mar, [facility] [id number] [place] [address] 00171- 1635 Mar, [facility] [id number] [place] [address] 04493- 9478 Feb, COPD (chronic obstructive pulmonary disease) J44.9 and Back pain M54.9 [facility] [id number] [place] [address] 10670- 8704 Feb, [facility] [id number] [place] [address] 12065- 5242 Feb, [facility] [id number] [place] [address] 57901- 5362 Feb, [facility] [id number] [place] [address] 01970- 3208 Feb, [facility] [id number] [place] [address] 56006- 8548 Feb, [facility] [id number] [place] [address] 69387- 0042 Feb, [facility] [id number] [place] [address] 20723- 5842 Feb, [facility] [id number] [place] [address] 11838- 6399 Feb, [facility] [id number] [place] [address] 54103- 2978 Feb, Diabetes E11.9 ; Back pain M54.9 and COPD (chronic obstructive pulmonary disease) J44.9 [facility] [id number] [place] [address] 10524- 2089 Jan, [facility] [id number] [place] [address] 28292- 1415 Jan, Major depression, recurrent F33.9 and Generalized anxiety disorder F41.1 [facility] [id number] [place] [address] 89832- 0808 Jan, Chronic pain G89.29 [facility] [id number] [place] [address] 61394- 1367 Jan, [facility] [id number] [place] [address] 23204- 5693 Jan, [facility] [id number] [place] [address] 49817- 2864 Jan, [facility] [id number] [place] [address] 50432- 6564 Jan, [facility] [id number] [place] [address] 49761- 4872 Jan, Nicotine dependence F17.200 [facility] [id number] [place] [address] 73235- 2040 Jan, Nicotine dependence F17.200 and Back pain M54.9 [facility] [id number] [place] [address] 02055- 4102 Jan, [facility] [id number] [place] [address] 71853- 8107 28 Dec, 2014 [facility] [id number] [place] [address] 85737- 2182 25 Sep, 2014 Anxiety, generalized 300.02 and Major depression, recurrent 296.30 [facility] [id number] [place] [address] 42772- 7094 24 Sep, 2014 [facility] [id number] [place] [address] 33850- 7886 21 Sep, 2014 [facility] [id number] [place] [address] 74055- 5417 17 Sep, 2014 [facility] [id number] [place] [address] 11889- 7756 15 Sep, 2014 [facility] [id number] [place] [address] 40138- 2429 14 Dec, 2014 [facility] [id number] [place] [address] 24438- 3450 11 Dec, 2014 [facility] [id number] [place] [address] 34840- 2191 Dec, [facility] [id number] [place] [address] 27030- 3465 08 Dec, 2014 Skin tear 879.8 [facility] [id number] [place] [address] 98946- 3810 08 Dec, 2014 Routine gynecological examination V72.31 ; Breast cancer screening V76.10 and Family history of breast cancer in first degree relative V16.3 [facility] [id number] [place] [address] 04791- 1253 Dec, [facility] [id number] [place] [address] 80797- 7299 Dec, [facility] [id number] [place] [address] 29258- 1037 Nov, [facility] [id number] [place] [address] 45662- 1330 Nov, [facility] [id number] [place] [address] 88282- 4164 Nov, Poor balance 781.99 and Vascular dementia, uncomplicated 290.40 [facility] [id number] [place] [address] 58973- 7061 Nov, [facility] [id number] [place] [address] 15285- 0513 Nov, Major depression, recurrent 296.30 and Anxiety, generalized 300.02 [facility] [id number] [place] [address] 29125- 0870 Nov, [facility] [id number] [place] [address] 17089- 4529 Nov, [facility] [id number] [place] [address] 36487- 1948 Nov, [facility] [address], [place] [address]- 9802 Nov, [facility] [address], [place] [address]- 9632 Nov, Vascular dementia, uncomplicated 290.40 and Lumbago 724.2 [facility] [id number] [place] [address] 84275- 9229 Nov, [facility] [address], [place] [address]- 1000 Nov, [facility] [id number] [place] [address] 30143- 9734 Nov, [facility] [id number] [place] [address] 93232- 3139 Oct, [facility] [id number] [place] [address] 85689- 4750 Oct, [facility] [address], [place] [address]- 4316 Oct, [facility] [address], [place] [address]- 8066 Oct, COPD (chronic obstructive pulmonary disease) 496 and Hyperlipidemia 272.4 [facility] [address], [place] [address]- 2374 Oct, Major depression, recurrent 296.30 and Anxiety, generalized 300.02 [facility] [address], [place] [address]- 5018 Oct, [facility] [address], [place] [address]- 4459 Oct, [facility] [address], [place] [address]- 6490 Oct, [facility] [address], [place] [address]- 9862 Sep, Lumbago 724.2 and Anxiety state, unspecified 300.00 [facility] [address], [place] [address]- 8897 Sep, [facility] [id number] [address]- 5962 Sep, [facility] [id number] [place] [address] 00887- 6636 August, [facility] [id number] [place] [address] 11946- 8798 August, Major depression, recurrent 296.30 ; Anxiety, generalized 300.02 and No condition on [place] V71.09 [facility] [id number] [address]- 3631 August, [facility] [id number] [address]- 0142 August, [facility] [id number] [address]- 6048 Jul, [facility] [address], [place] [address]- 8429 Jul, [facility] [id number] [address]- 3788 Jul, [facility] [address], [place] [address]- 2329 Jun, [facility] [address], [place] [address]- 4744 Jun, [facility] [address], [place] [address]- 7341 Jun, [facility] [address], [place] [address]- 9656 Jun, [facility] [address], [place] [address]- 4698 Jun, [facility] [place] [facility] [id number] [address]- 2819 23 Jun, 2014 [facility] [place] [facility] [address] [id number] [place] [address]- 4179 23 Jun, 2014 [facility] [place] [facility] [address] [id number] [place] [address]- 4566 17 Jun, 2014 [facility] [place] [facility] [address] [id number] [place] [address]- 6585 13 Jun, 2014 [facility] [place] [facility] [address] [id number] [place] [address]- 3181 13 Jun, 2014 [facility] [place] [facility] [address] [id number] [place] [address]- 9808 10 Jun, 2014 [facility] [place] [facility] [address] [id number] [place] [address]- 4876 10 Jun, 2014 [facility] [place] [facility] [address] [id number] [place] [address]- 0247 Jun, 2014 [facility] [place] [facility] [address] [id number] [place] [address]- 3866 Jun, [facility] [place] [facility] [address] [id number] [place] [address]- 2766 Jun, 2014 [facility] [place] [facility] [address] [id number] [place] [address]- 2856 Jun, [facility] [place] [facility] [address] [id number] [place] [address]- 2315 May, 2014 [facility] [place] [facility] [address] [id number] [place] [address]- 7776 May, 2014 [facility] [place] [facility] [address] [id number] [place] [address]- 1336 May, 2014 [facility] [place] [facility] [address] [id number] [place] [address]- 5116 May, 2014 [facility] [place] [facility] [address] [id number] [place] [address]- 3020 May, 2014 [facility] [place] [facility] [address] [id number] [place] [address]- 6161 May, 2014 [facility] [place] [facility] [address] [id number] [place] [address]- 2706 May, 2014 [facility] [place] [facility] [address] [facility] [id number] [place] [address]- 9266 May, 2014 [facility] [place] [facility] [address] [id number] [place] [address]- 8475 May, 2014 [facility] [place] [facility] [address] [id number] [place] [address]- 7690 May, 2014 [facility] [place] [facility] [address] [facility] [id number] [place] [address]- 8319 May, 2014 [facility] [place] [facility] [address] [facility] [id number] [place] [address]- 1279 May, 2014 [facility] [place] [facility] [address] [facility] [id number] [place] [address]- 9805 May, [facility] [place] [facility] [address] [facility] [id number] [place] [address]- 1071 May, [facility] [place] [facility] [address] [facility] [id number] [place] [address]- 1258 Apr, [facility] [place] [facility] [address] [facility] [id number] [place] [address]- 1089 Apr, [facility] [place] [facility] [address] [facility] [id number], [place] [address]- 2540 Apr, [facility] [place] [facility] [address] [id number] [place] [address]- 8025 Apr, [facility] [place] [facility] [address] [facility] [id number], [place] [address]- 1310 Apr, [facility] [place] [facility] [address] [facility] [id number], [place] [address]- 1032 Apr, [facility] [place] [facility] [address] [id number] [place] [address]- 5508 Apr, [facility] [place] [facility] [address] [id number] [place] [address]- 8731 Apr, [facility] [place] [facility] [address] [id number] [place] [address]- 6168 Apr, [facility] [place] [facility] [address] [id number] [place] [address]- 5920 Apr, [facility] [place] [facility] [address] [id number] [place] [address]- 4354 Apr, [facility] [place] [facility] [address] [id number] [place] [address]- 0835 Apr, [facility] [place] [facility] [address] [id number] [place] [address]- 7824 Mar, [facility] [place] [facility] [address] [id number] [place] [address]- 4250 31 Mar, 2014 [facility] [place] [facility] [address] [id number] [place] [address]- 2601 30 Mar, 2014 [facility] [place] [facility] [address] [id number] [place] [address]- 6452 30 Mar, 2014 [facility] [place] [facility] [address] [id number] [place] [address]- 0914 29 Mar, 2014 [facility] [place] [facility] [address] [id number] [place] [address]- 9056 29 Mar, 2014 [facility] [place] [facility] [address] [id number] [place] [address]- 3392 19 Mar, 2014 [facility] [place] [facility] [address] [id number] [place] [address]- 1904 19 Mar, 2014 [facility] [place] [facility] [address] [id number] [place] [address]- 9375 15 Mar, 2014 [facility] [place] [facility] [address] [id number] [place] [address]- 8890 15 Mar, 2014 [facility] [place] [facility] [address] [id number] [place] [address]- 6260 15 Mar, 2014 [facility] [place] [facility] [address] [id number] [place] 5910 Mar, [facility] [place] [facility] [address] [id number] [place] [address]- 1456 Mar, [facility] [place] [facility] [address] [id number] [place] [address]- 6954 Mar, [facility] [place] [facility] [address] [id number] [place] [address]- 8889 Mar, [facility] [place] [facility] [address] [id number] [place] [address]- 9022 Mar, [facility] [place] [facility] [address] [id number] [place] [address]- 2296 Mar, [facility] [place] [facility] [address] [id number] [place] [address]- 4897 Mar, [facility] [place] [facility] [address] [id number] [place] [address]- 5830 Mar, [facility] [place] [facility] [address] [id number] [place] [address]- 9939 Mar, [facility] [place] [facility] [address] [id number] [place] [address]- 1716 Feb, [facility] [place] [facility] [address] [id number], [place] [address]- 7141 Feb, [facility] [place] [facility] [address] [id number] [place] [address]- 5975 Feb, [facility] [place] [facility] [address] [id number] [place] [address]- 5083 Feb, [facility] [place] [facility] [address] [id number] [place] [address]- 7988 Feb, [facility] [place] [facility] [address] [id number] [place] [address]- 5301 Feb, [facility] [place] [facility] [address] [id number] [place] [address]- 4592 Feb, [facility] [place] [facility] [address] [id number] [place] [address]- 6606 Feb, [facility] [place] [facility] [address] [id number] [place] [address]- 5541 Feb, [facility] [place] [facility] [address] [id number] [place] [address]- 7531 Feb, [facility] [place] [facility] [address] [id number] [place] [address]- 3670 Feb, [facility] [place] [facility] [address] [id number] [place] [address]- 3066 Feb, [facility] [place] [facility] [address] [id number] [place] [address]- 8871 Feb, [facility] [place] [facility] [address] [id number] [place] [address]- 3167 Feb, [facility] [place] [facility] [address] [id number] [place] [address]- 5897 Feb, [facility] [place] [facility] [address] [facility] [id number] [place] [address]- 5704 Feb, [facility] [place] [facility] [address] [id number] [place] [address]- 7789 Feb, [facility] [place] [facility] [address] [id number] [place] [address]- 7392 Jan, [facility] [place] [facility] [address] [id number] [place] [address]- 7125 Jan, [facility] [place] [facility] [address] [id number] [place] [address]- 2489 Jan, [facility] [place] [facility] [address] [id number] [place] [address]- 9889 Jan, [facility] [place] [facility] [address] [id number] [place] [address]- 8990 Jan, [facility] [place] [facility] [address] [id number] [place] [address]- 2668 Jan, [facility] [place] [facility] [address] [id number] [place] [address]- 7924 Jan, [facility] [place] [facility] [address] [id number] [place] [address]- 3552 Jan, [facility] [place] [facility] [address] [id number] [place] [address]- 3425 Jan, [facility] [place] [facility] [address] [id number] [place] [address]- 7381 Jan, [facility] [place] [facility] [address] [id number] [place] [address]- 5549 Jan, [facility] [place] [facility] [address] [id number] [place] [address]- 9929 Dec, [facility] [place] [facility] [address] [id number] [place] [address]- 4124 Dec, [facility] [place] [facility] [address] [id number] [place] [address]- 7564 Nov, [facility] [place] [facility] [address] [id number], [place] [address]- 8933 Nov, [facility] [place] [facility] [address] [id number], [place] [address] Nov, [facility] [place] [facility] [address] [id number] [place] [address] Nov, [facility] [place] [facility] [address] [id number] [place] [address] Nov, [facility] [place] [facility] [address] [id number] [address] Nov, [facility] [place] [facility] [address] [id number], [place] [address] Nov, [facility] [place] [facility] [address] [id number] [place] [address] Oct, [facility] [place] [facility] [address] [id number] [place] [address] Oct, [facility] [place] [facility] [address] [id number] [place] [address] Oct, [facility] [place] [facility] [address] [id number] [place] [address] Oct, [facility] [place] [facility] [address] [id number] [place] [address] Sep, [facility] [place] [facility] [address] [id number] [place] [address] Sep, [facility] [place] [facility] [address] [id number] [place] [address] Sep, [facility] [place] [facility] [address] [id number] [place] [address] Sep, [facility] [place] [facility] [address] [id number] [place] [address] Sep, [facility] [place] [facility] [address] [id number] [place] [address] Sep, [facility] [place] [facility] [address] [id number] [place] [address] Sep, [facility] [place] [facility] [address] [id number] [place] [address] Sep, [facility] [place] [facility] [address] [id number] [place] [address] Sep, [facility] [place] [facility] [address] [id number] [place] [address] Sep, [facility] [place] [facility] [address] [facility] [id number] [place] [address] Sep, [facility] [place] [facility] [address] [id number] [place] [address] Sep, [facility] [place] [facility] [address] [id number] [place] [address] Sep, [facility] [place] [facility] [address] [id number] [place] [address] Sep, [facility] [place] [facility] [address] [id number] [place] [address] August, [facility] [place] [facility] [address] [id number] [place] [address] August, [facility] [place] [facility] [address] [id number] [place] [address] August[facility] [place] [facility] [address] [id number] [place] [address] August, [facility] [place] [facility] [address] [id number] [place] [address] August, [facility] [place] [facility] [address] [id number] [place] [address] August, [facility] [place] [facility] [address] [id number] [place] [address] August, [facility] [place] [facility] [address] [id number] [place] [address] August, [facility] [place] [facility] [address] [id number] [place] [address] August, [facility] [place] [facility] [address] [id number] [place] [address] August, [facility] [place] [facility] [address] [id number] [place] [address] August, [facility] [place] [facility] [address] [id number] [place] [address] August, [facility] [place] [facility] [address] [id number] [place] [address] August, [facility] [place] [facility] [address] [id number] [place] [address] August, [facility] [place] [facility] [address] [id number] [place] [address] August, [facility] [place] [facility] [address] [id number] [place] [address]- [address] August, [facility] [place] [facility] [address] [id number] [place] [address] August, [facility] [place] [facility] [address] [id number] [place] [address] August, [facility] [place] [facility] [address] [id number] [place] [address] August, [facility] [place] [facility] [address] [address] [id number] [place] [address] Jul, [facility] [place] [facility] [address] [id number] [place] [address] 8766 Jul, [facility] [place] [facility] [address] [id number] [place] [address] 5835 Jul, [facility] [place] [facility] [address] [id number] [place] [address] 3269 Jul, [facility] [place] [facility] [address] [id number] [place] [address] 5935 Jun, [facility] [place] [facility] [address] [id number] [place] [address] 9188 Jun, [facility] [place] [facility] [address] [id number] [place] [address] 1726 Jun, [facility] [place] [facility] [address] [id number] [place] [address] 1427 Jun, [facility] [place] [facility] [address] [id number] [place] [address] 7279 Jun, [facility] [place] [facility] [address] [id number] [place] [address] 0794 17 Jun, 2013 [facility] [place] [facility] [address] [id number] [place] [address] 5414 14 Jun, 2013 [facility] [place] [facility] [address] [id number] [place] [address]- 1702 14 Jun, 2013 [facility] [place] [facility] [address] [id number] [place] [address]- 2272 06 Jun, 2013 [facility] [place] [facility] [address] [id number] [place] [address] 9960 06 Jun, 2013 [facility] [place] [facility] [address] [id number] [place] [address] 8193 27 May, 2013 [facility] [place] [facility] [address] [id number] [place] [address] 9891 27 May, 2013 [facility] [place] [facility] [address] [id number] [place] [address] 9148 27 May, 2013 [facility] [place] [facility] [address] [id number] [place] [address] 9323 27 May, 2013 [facility] [place] [facility] [address] [id number] [place] [address]- 2275 May, [facility] [place] [facility] [address] [facility] [id number] [place] [address] 4128 21 May, 2013 [facility] [place] [facility] [address] [facility] [id number] [place] [address] 8419 20 May, 2013 [facility] [place] [facility] [address] [id number] [place] [address] 3138 May, [facility] [place] [facility] [address] [id number] [place] [address] 7920 May, [facility] [place] [facility] [address] [facility] [id number] [place] [address]- 9595 18 May, 2013 [facility] [place] [facility] [address] [facility] [id number] [place] [address]- 8770 18 May, 2013 [facility] [place] [facility] [address] [id number] [place] [address]- 3284 17 May, 2013 [facility] [place] [facility] [address] [id number] [place] [address]- 7466 May, [facility] [place] [facility] [address] [facility] [id number] [place] [address]- 6596 May, [facility] [place] [facility] [address] [id number] [place] [address]- 0300 May, [facility] [place] [facility] [address] [id number] [place] [address]- 8203 May, [facility] [place] [facility] [address] [facility] [id number] [place] [address]- 2954 May, [facility] [place] [facility] [address] [facility] [id number] [place] [address]- 8815 Apr, [facility] [place] [facility] [address] [facility] [id number] [place] [address]- 4926 Apr, [facility] [place] [facility] [address] [facility] [id number] [place] [address]- 9914 Apr, [facility] [place] [facility] [address] [facility] [id number] [place] [address] 0869 Apr, [facility] [place] [facility] [address] [facility] [id number], [place] [address]- 0673 Apr, [facility] [place] [facility] [address] [facility] [id number], [place] [address]- 2977 Apr, [facility] [place] [facility] [address] [facility] [id number], [place] [address]- 4934 Apr, [facility] [place] [facility] [address] [facility] [id number] [place] [address]- 5363 Mar, [facility] [place] [facility] [address] [facility] [id number] [place] [address]- 9206 Mar, [facility] [place] [facility] [address] [id number] [place] [address] 3666 Mar, [facility] [place] [facility] [address] [id number] [place] [address] 1996 Mar, [facility] [place] [facility] [address] [id number] [place] [address]- 8286 Mar, [facility] [place] [facility] [address] [id number] [place] [address]- 6636 Mar, [facility] [place] [facility] [address] [id number] [place] [address]- 8769 Mar, [facility] [place] [facility] [address] [id number] [place] [address]- 4715 Mar, [facility] [place] [facility] [address] [id number] [place] [address]- 3610 Mar, [facility] [place] [facility] [address] [id number] [place] [address]- 2584 Mar, [facility] [place] [facility] [address] [id number] [place] [address]- 8171 Mar, [facility] [place] [facility] [address] [id number] [place] [address]- 1019 Feb, [facility] [place] [facility] [address] [id number] [place] [address]- 0381 Feb, [facility] [place] [facility] [address] [id number] [place] [address]- 6943 Feb, [facility] [place] [facility] [address] [id number] [place] [address]- 2739 Feb, [facility] [place] [facility] [address] [id number] [place] [address]- 0930 Feb, [facility] [place] [facility] [address] [id number] [place] [address]- 4902 Feb, [facility] [place] [facility] [address] [id number] [place] [address] 2872 15 Feb, 2013 [facility] [place] [facility] [address] [id number] [place] [address]- 0407 14 Feb, 2013 [facility] [place] [facility] [address] [id number] [place] [address]- 0497 14 Feb, 2013 [facility] [place] [facility] [address] [id number] [place] [address]- 2783 13 Feb, 2013 [facility] [place] [facility] [address] [id number], [place] [address]- 9247 13 Feb, 2013 [facility] [place] [facility] [address] [id number] [place] [address] 1917 Feb, [facility] [place] [facility] [address] [id number] [place] [address]- 8823 Feb, [facility] [place] [facility] [address] [id number] [place] [address]- 6780 Feb, [facility] [place] [facility] [address] [id number], [place] [address]- 9574 Feb, [facility] [place] [facility] [address] [id number], [place] [address]- 9620 Feb, [facility] [place] [facility] [address] [id number], [place] [address]- 6511 Jan, [facility] [place] [facility] [address] [id number], [place] [address]- 4040 24 Jan, 2013 [facility] [place] [facility] [address] [id number], [place] [address]- 5388 24 Jan, 2013 [facility] [place] [facility] [address] [id number], [place] [address]- 9231 24 Jan, 2013 [facility] [place] [facility] [address] [id number], [place] [address]- 4363 24 Jan, 2013 [facility] [place] [facility] [address] [id number], [place] [address]- 0811 Jan, [facility] [place] [facility] [address] [id number] [place] [address]- 0639 22 Jan, 2013 [facility] [place] [facility] [address] [id number] [place] [address]- 2120 10 Jan, 2013 [facility] [place] [facility] [address] [id number] [place] [address]- 3716 10 Jan, 2013 [facility] [place] [facility] [address] [id number] [place] [address]- 1282 27 Dec, 2012 [facility] [place] [facility] [address] [id number] [place] [address] 254 20 Dec, 2012 [facility] [place] [facility] [address] [id number] [place] [address]- 5791 19 Dec, 2012 [facility] [place] [facility] [address] [id number] [place] [address]- 2631 10 Dec, 2012 [facility] [place] [facility] [address] [id number] [place] [address]- 7026 04 Dec, 2012 [facility] [place] [facility] [address] [id number] [place] [address]- 254 03 Dec, 2012 [facility] [place] [facility] [address] [id number] [place] [address]- 3014 Nov, [facility] [place] [facility] [address] [id number] [place] [address]- 5459 Nov, [facility] [place] [facility] [address] [id number] [place] [address] 2541 Nov, [facility] [place] [facility] [address] [id number] [place] [address]- 2545 Nov, [facility] [place] [facility] [address] [id number] [place] [address] 2547 Nov, [facility] [place] [facility] [address] [id number] [place] [address]- 2549 Nov, [facility] [place] [facility] [address] [id number] [place] [address]- 6451 Nov, [facility] [place] [facility] [address] [id number] [place] [address]- 8658 Nov, [facility] [place] [facility] [address] [id number] [place] [address]- 1036 Nov, [facility] [place] [facility] [address] [id number] [place] [address]- 5183 Nov, [facility] [place] [facility] [address] [id number] [place] [address]- 7302 Oct, [facility] [place] [facility] [address] [id number] [place] [address]- 9995 Oct, [facility] [place] [facility] [address] [id number] [place] [address]- 0417 Oct, [facility] [place] [facility] [address] [id number] [place] [address]- 8791 Oct, [facility] [place] [facility] [address] [id number] [place] [address]- 1421 Oct, [facility] [place] [facility] [address] [id number] [place] [address]- 4254 Oct, [facility] [place] [facility] [address] [id number] [place] [address]- 4010 Oct, [facility] [place] [facility] [address] [id number] [place] [address]- 4621 Oct, [facility] [place] [facility] [address] [id number] [place] [address]- 4229 Sep, [facility] [place] [facility] [address] [id number] [place] [address]- 6220 Sep, [facility] [place] [facility] [address] [id number] [place] [address]- 9571 Sep, [facility] [place] [facility] [address] [id number] [place] [address]- 2062 Sep, [facility] [place] [facility] [address] [id number] [place] [address]- 6001 Sep, [facility] [address] [id number] [place] [address]- 2951 Sep, [facility] [place] [facility] [address] [id number] [place] [address]- 1682 Sep, [facility] [address] [id number] [place] [address]- 4198 Sep, [facility] [place] [facility] [address] [id number] [place] [address]- 5074 August, [facility] [address] [id number] [place] [address]- 4889 August, [facility] [address] [id number] [place] [address]- 5861 August, [facility] [address] [id number] [place] [address]- 5802 August, [facility] [address] [id number] [place] [address]- 7132 August, [facility] [address] [id number] [place] [address]- 9827 Jul, [facility] [place] [facility] [address] [id number] [place] [address]- 9332 Jul, [facility] [place] [facility] [address] [id number] [place] [address]- 1359 Jul, [facility] [place] [facility] [address] [id number] [place] [address]- 5833 Jul, [facility] [place] [facility] [address] [id number] [place] [address]- 9976 Jul, [facility] [place] [facility] [address] [id number] [place] [address] Jun, [facility] [place] [facility] [address] [id number] [place] Jun, [facility] [place] [facility] [address] [id number] [place] [address]- 5261 15 Jun, 2012 [facility] [address] [id number] [place] [address]- 6844 14 Jun, 2012 [facility] [place] [facility] [address] [id number] [place] [address]- 9926 12 Jun, 2012 [facility] [address] [id number] [place] [address]- 2738 08 Jun, 2012 [facility] [address] [id number] [place] [address]- 9458 08 Jun, 2012 [facility] [address] [id number] [place] [address]- 1602 02 Jun, 2012 [facility] [address] [id number] [place] [address]- 0246 Jun, [facility] [address] [id number] [place] [address]- 0210 May, [facility] [address] [id number] [place] [address]- 7400 May, [facility] [address] [id number] [place] [address]- 1281 May, [facility] [address] [id number] [place] [address]- 4235 May, [facility] [address] [id number] [place] [address]- 9609 Apr, [facility] [address] [id number] [place] [address]- 4925 Apr, [facility] [place] [facility]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
[2017-07-04] MEDS ORDERED: NS IV 500 ML 500 ML ONE (12:23)
--- OUTSIDE RECORDS SUMMARY | 2017-07-04 13:03 | XMS REPORT ---
Author Author FAHAD CLEMENT [facility] Address [address] [place] [address] Care Team Providers Care Printing Sales Representative Name Role Phone FAHAD CLEMENT Unavailable PROBLEMS Type Condition ICD9-CM Code GOP44-VU Code Onset Dates Condition Status SNOMED Code Problem Generalized anxiety disorder F41.1 Active 494028782 Problem Paroxysmal atrial fibrillation I48.0 Active 101857443 Problem Barretts esophagus K22.70 Active 411682332 Problem Coronary artery disease involving [place] coronary artery of [place] 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 I25.118 Active 7972637256096 Problem History of common bile duct surgery Z98.89 Active 732309579 Problem Colon polyp K63.5 Active 09313076 Problem 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 Active 81125998 Problem Bilateral low back pain without sciatica M54.5 Active 765906254 Problem Screening breast examination Z12.39 Active 910993152 Problem Bipolar affective disorder, currently depressed, moderate F31.32 Active 627762614 Problem Postmenopausal Z78.0 Active 48797965 Problem Acute exacerbation of chronic obstructive pulmonary disease (COPD) J44.1 Active 649222225 Problem Osteopenia M85.80 Active 716031557 Problem Crohn''s disease without complication, unspecified gastrointestinal tract location K50.90 Active 25889057 Problem Unspecified atherosclerosis of [place] arteries of extremities, unspecified extremity I70.209 Active 667556652916732 Problem Type 2 diabetes mellitus with diabetic peripheral angiopathy without gangrene E11.51 Active 955677563 Problem Atherosclerotic heart disease of [place]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 I25.118 Active 9147384165489 Problem Atherosclerosis of [place] artery of both lower extremities with intermittent claudication I70.213 Active 899421415996008 Problem Arthritis M19.90 Active 7083138 Problem Vascular dementia without behavioral disturbance F01.50 Active 38903231864939353 Problem Hyperlipidemia E78.5 Active 50832964 Problem Cigarette nicotine dependence without complication F17.210 Active 97651182 Problem Essential tremor G25.0 Active 51469718 Problem Other chronic pancreatitis K86.1 Active 753106927 Problem Chronic atrial fibrillation I48.2 Active 707046683 Problem Type 2 diabetes mellitus with diabetic neuropathy, without long-term current use of insulin E11.40 Active 47976453 Problem Chronic obstructive pulmonary disease with acute lower respiratory infection J44.0 Active 955766184 Problem Major depressive disorder, recurrent episode, moderate F33.1 Active 365279885 Problem Unspecified psychosis F29 Active 05053741 Problem Chronic pain syndrome G89.4 Active 741267711 Problem Migraine without aura and without status migrainosus, not intractable G43.009 Active 631426033 Problem COPD (chronic obstructive pulmonary disease) J44.9 Active 04349393 Problem Dementia without behavioral disturbance, unspecified dementia type F03.90 Active 42026150 Problem Cervicalgia M54.2 Active 8168004777920 Problem Xeroderma Q80.9 Active 04152535 Problem Osteoporosis M81.0 Active 54918293 Problem Postconcussion syndrome F07.81 Active 47074658 Problem Gastroparesis K31.84 Active 902354252 Problem Chronic fatigue R53.82 Active 87290061 Problem Migraine without aura and with status migrainosus, not intractable G43.001 Active 201112485 Problem Gastroesophageal reflux disease, esophagitis presence not specified K21.9 Active 746799198 ALLERGIES No Information ENCOUNTERS Encounter Location Date Diagnosis [place] [address] [address]95[address] 6956 Jul, [place] [address] [place] [id number] [place] [address] 60344- 8374 Jul, [facility] [address] [place] [id number] [place] [address] 51960- 7859 Jun, [facility] [address] 27992- 6218 Jun, Gastroenteritis K52.9 [facility] [address] [place] [id number] [place] [address] 56477- 2673 Jun, Gastroenteritis K52.9 [facility] [address] 94240- 6647 Jun, [facility] [address] [address] 8043 Jun, [place] [address] [place] [address] 10838- 4154 Jun, Sprain of right ankle, unspecified ligament, initial encounter S93.401A ; Type 2 diabetes mellitus with diabetic neuropathy, without long-term current use of insulin E11.40 ; Atherosclerosis of [place] artery of both lower extremities with intermittent claudication I70.213 ; Atherosclerotic heart disease of [place]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 I25.118 ; Chronic atrial fibrillation I48.2 and Crohn''s disease without complication, unspecified gastrointestinal tract location K50.90 [facility] [address] [address] 17 Jun, 2017 Chronic obstructive pulmonary disease with acute lower respiratory infection J44.0 and Cough R05 [place] [address] [place] [address] 55847- 6066 16 Jun, 2017 [place] [address] [place] [address] 51883- 4436 15 Jun, 2017 Coughing R05 ; Unspecified atherosclerosis of [place] arteries of extremities, unspecified extremity I70.209 ; Type 2 diabetes mellitus with diabetic peripheral angiopathy without gangrene E11.51 ; Crohn''s disease without complication, unspecified gastrointestinal tract location K50.90 ; Other chronic pancreatitis K86.1 and Chronic atrial fibrillation I48.2 [facility] [address] [address] Jun, [place] [address] [place] [id number] [place] [address] 42548- 5639 Jun, Bipolar affective disorder, currently depressed, moderate F31.32 ; Vascular dementia without behavioral disturbance F01.50 and Generalized anxiety disorder F41.1 [place] [address] [place] [address] 04594- 6356 May, Generalized anxiety disorder F41.1 [place] [address] [address] 8166 May, [facility] [address] [place] [id number] [place] [address] 06770- 2627 May, [facility] [address] [place] [id number] [place] [address] 76753- 8337 May, Coughing R05 [place] [address] [place] [id number] [place] [address] 21877- 7145 May, [place] [address] [place] [id number] [place] [address] 17671- 6423 May, Bipolar affective disorder, currently depressed, moderate F31.32 ; Vascular dementia without behavioral disturbance F01.50 and Generalized anxiety disorder F41.1 [place] [address] [place] [id number] [place] [address] 73806- 5250 Apr, Generalized anxiety disorder F41.1 [place] [address] [place] [id number] [place] [address] 95686- 4237 Apr, [place] [address] [place] [id number] [place] [address] 49354- 2044 Apr, Vascular dementia without behavioral disturbance F01.50 ; Generalized anxiety disorder F41.1 and Bipolar affective disorder, currently depressed, moderate F31.32 [place] [address] [place] [address] 63967- 4210 Apr, Generalized anxiety disorder F41.1 [facility] [address] [place] [address] 40254 -2208 Apr, Cough R05 and Acute exacerbation of chronic obstructive pulmonary disease (COPD) J44.1 [place] [address] [place] [id number] [place] [address] 30566- 2165 Apr, [facility] [address] [place] [address] 36096 -3870 Mar, Cough R05 and Cigarette nicotine dependence without complication F17.210 [place] [address] [address]- 0737 Mar, [place] [address] [place] [id number] [place] [address] 05095- 3833 Feb, Generalized anxiety disorder F41.1 ; Major depressive disorder, recurrent episode, moderate F33.1 ; Vascular dementia without behavioral disturbance F01.50 and Unspecified psychosis F29 [place] [address] [place] [id number] [place] [address] 67275- 1334 Feb, [place] [address] [place] [id number] [place] [address] 96795- 7471 Feb, [place] [address] [place] [id number] [place] [address] 77814- 5558 Feb, Generalized anxiety disorder F41.1 [place] [address] [place] [address] [place] [address] 81873- 4392 Feb, Generalized anxiety disorder F41.1 [place] [address] [place] [address] [place] [address] 44207- 8598 Feb, Dizziness R42 ; Chronic fatigue R53.82 ; Postconcussion syndrome F07.81 ; Fall, initial encounter W19.XXXA and Disorientation R41.0 [place] [address] [place] [id number] [place] [address] 55221- 6179 03 Feb, 2017 Postconcussion syndrome F07.81 ; Injury of head, initial encounter S09.90XA ; Fall, initial encounter W19.XXXA ; Disorientation R41.0 and Acute cystitis with hematuria N30.01 [place] [address] [place] [address] 24558- 7276 Jan, Gastroesophageal reflux disease, esophagitis presence not specified K21.9 ; Post-menopausal Z78.0 and Migraine without aura and without status migrainosus, not intractable G43.009 [place] [address] [place] [address] 84128- 4731 Jan, [place] [address] [place] [id number] [place] [address] 68525- 5023 Jan, Generalized anxiety disorder F41.1 ; Major depressive disorder, recurrent episode, moderate F33.1 ; Vascular dementia without behavioral disturbance F01.50 and Unspecified psychosis F29 [facility] [address] [place] [id number] [place] [address] 17378- 3467 Jan, Pneumonia of left lower lobe due to infectious organism J18.1 [facility] [address] [place] [id number] [place] [address] 32138- 0225 Jan, Migraine without aura and with status migrainosus, not intractable G43.001 [facility]ALK IN [facility] [address] [place] [id number] [place] [address] 64906 -7358 Jan, Migraine without aura and without status migrainosus, not intractable G43.009 [place] [address] [place] [id number] [place] [address] 92849- 2880 Dec, Hematoma T14.8 [facility] [address] [place] [id number] [place] [address] 38129- 2140 Dec, [facility] IN [facility] [address] [place] [id number] [place] [address] 35136 -4964 Nov, Fatigue, unspecified type R53.83 [place] [address] [place] [id number] [place] [address] 05815- 2635 Nov, Scabies B86 and Coronary artery disease involving [place] coronary artery of [place] 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 I25.118 [facility] [address] [place] [id number] [place] [address] 64958- 7869 Nov, [place] [address] 89777- 4245 Nov, [facility] [address] [place] [id number] [place] [address] 66163- 6659 Oct, [place] [address] [place] [id number] [place] [address] 40841- 5610 Oct, Generalized anxiety disorder F41.1 and Major depressive disorder, recurrent episode, moderate F33.1 [facility] [address] [place] [id number] [place] [address] 49440- 7577 Oct, Cramp of both lower extremities R25.2 [facility] [address] [place] [id number] [place] [address] 40762- 7000 Oct, Leg cramps R25.2 [facility] [address] [place] [id number] [place] [address] 59581- 4201 Oct, Chronic pain syndrome G89.4 [place] [address] [place] [id number] [place] [address] 46684- 6333 Oct, [facility] [address] [place] [id number] [place] [address] 33700- 9303 Oct, [place] [address] [place] [address] [place] [address] 99867- 9201 Oct, Routine gynecological examination Z01.419 and Screening for breast cancer Z12.31 [place] [address] [place] [id number] [place] [address] 15120- 8062 Sep, Diarrhea R19.7 [place] [address] [place] [id number] [place] [address] 56820- 1350 Sep, Back pain M54.9 [place] [address] [place] [id number] [place] [address] 88312- 1826 Sep, [facility] [address] [place] [id number] [place] [address] 90011- 6124 Sep, [facility] [address] [place] [id number] [place] [address] 72152 -8335 August, Xeroderma Q80.9 [facility] [address] [place] [id number] [place] [address] 36894- 8740 August, Dementia without behavioral disturbance, unspecified dementia type F03.90 [facility] [address] [place] [id number] [place] [address] 71557- 5967 August, Chronic pain syndrome G89.4 [place] [address] 02119- 1193 August, [place] [address] 61373- 5325 August, Hyperlipidemia E78.5 ; Other fatigue R53.83 and Other specified hypotension I95.89 [facility] [address] 77822 -3061 August, Dysuria R30.0 ; Other fatigue R53.83 and Other specified hypotension I95.89 [place] [address] 94465- 6135 August, [place] [address] 05694- 4633 Jul, Pain in left knee M25.562 and Gastroenteritis K52.9 [place] [address] 06064- 6499 Jul, [place] [address] 38717- 6451 Jul, Diarrhea R19.7 [facility] WALK [facility] [place] [address] 81380 -3323 Jul, Spider bite, accidental or unintentional, initial encounter T63.301A [place] [address] 84932- 9116 Jul, Primary osteoarthritis of right knee M17.11 and Arthritis M19.90 [place] [address] 37461- 2230 Jul, Generalized anxiety disorder F41.1 and Major depressive disorder, recurrent episode, moderate F33.1 [place] [address] 95563- 5545 07 Jul, 2016 Type 2 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 and Temporal headache R51 [facility] [address] 45260- 9542 06 Jul, 2016 Back pain M54.9 [facility] [address] 58900- 2463 05 Jul, 2016 [facility] [address] 16689- 5012 Jul, [place] [address] 04717- 1322 30 Jun, 2016 Nausea R11.0 [facility] [address] 57296 -8395 Jun, Acute suppurative otitis media of both ears without spontaneous rupture of tympanic membranes, recurrence not specified H66.003 and COPD exacerbation J44.1 [place] [address] 62973- 4737 Jun, Generalized anxiety disorder F41.1 [place] [address] 96543- 0669 16 Jun, 2016 [facility] [address] 10589 -4100 Jun, [facility] [address] 78123 -9153 Jun, Shortness of breath R06.02 and COPD exacerbation J44.1 [place] [address] 66909- 7851 10 Jun, 2016 Eczema, unspecified type L30.9 [place] [address] 70830- 4643 09 Jun, 2016 [place] [address] 49810- 6731 24 May, 2016 [facility] [address] 64165- 3982 May, Muscle cramping R25.2 [facility] [address] [place] [id number] [place] [address] 72100- 5541 13 May, 2016 [facility] [address] [place] [id number] [place] [address] 51258- 9921 Apr, Diarrhea R19.7 [facility] [address] [place] [id number] [place] [address] 29460- 9212 Apr, [facility] [address] 81409- 2695 Apr, Chronic pain syndrome G89.4 [place] [address] 21221- 8623 Apr, Cramp of both lower extremities R25.2 and Vascular dementia without behavioral disturbance F01.50 [place] [address] [place] [id number] [place] [address] 31113- 4754 Apr, Type 2 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 and Cigarette nicotine dependence without complication F17.210 [place] [address] [place] [address] [place] [address] 73111- 3398 Mar, Generalized anxiety disorder F41.1 [place] [address] [place] [address] [place] [address] 40739- 7534 Feb, Generalized anxiety disorder F41.1 and Major depressive disorder, recurrent episode, moderate F33.1 [facility] [address] [place] [id number] [place] [address] 25942- 5741 Feb, [facility] [address] [place] [id number] [place] [address] 59066 -3812 Feb, Dysuria R30.0 and Acute cystitis with hematuria N30.01 [facility] [address] [place] [id number] [place] [address] 23850- 6663 Jan, [facility] [address] [place] [address] [place] [address] 54886- 0726 Jan, [facility] [address] [place] [address]- 9535 Jan, [facility] [address] [place] [id number] [place] [address] 70776- 1070 Jan, [facility] [address] [place] [id number] [place] [address] 73352 -1375 10 Jan, 2016 Wasp sting, accidental or unintentional, initial encounter T63.461A [facility] [address] 59310- 4263 Jan, Encounter for immunization Z23 [facility] [address] 86117- 8618 Jan, [facility] [address] 05764- 9627 Jan, [facility] [address] 47203- 3038 28 Dec, 2015 Generalized anxiety disorder F41.1 and Major depressive disorder, recurrent episode, moderate F33.1 [facility] [address] [place] [address] [place] [address] 76361- 4069 21 Dec, 2015 Routine gynecological examination Z01.419 ; Postmenopausal Z78.0 ; Screening breast examination Z12.39 ; Osteopenia M85.80 and Breast cancer screening Z12.39 [facility] [address] [place] [id number] [place] [address] 58114- 3294 20 Dec, 2015 [facility] [address] [place] [id number] [place] [address] 43330- 0814 19 Dec, 2015 [facility] [address] [place] [id number] [place] [address] 13489- 9644 16 Dec, 2015 [facility] [address] 73890- 5885 16 Dec, 2015 [facility] [address] [place] [id number] [place] [address] 75114- 9406 14 Dec, 2015 [facility] [address] 94962- 6867 Dec, [facility] [address] [place] [id number] [address]- 1450 Nov, [facility] [address] [address] -8918 Nov, Cough R05 ; Other viral agents as the cause of diseases classified elsewhere B97.89 and Acute upper respiratory infection, unspecified J06.9 [facility] [address] [address]- 4042 Nov, [facility] [address] [address]- 6218 Nov, [facility] [address] [address]- 8115 Nov, [facility] [address] [address]- 7753 Nov, [facility] [address] [address]- 7868 Nov, [facility] [address] [address]- 4283 Oct, [facility] [address] [address]- 0658 Oct, [facility] [address] [address]- 0036 Oct, [facility] [address] [address]- 1367 Oct, Chronic pain syndrome G89.4 [facility] [address] [place] [address] 20413- 7864 Sep, Generalized anxiety disorder F41.1 and Major depressive disorder, recurrent episode, moderate F33.1 [facility] [address] [address]- 1206 Sep, [facility] [address] [place] [id number] [place] [address] 40743- 8015 20 Sep, 2015 [place] [address] [place] [id number] [place] [address] 00079- 4970 14 Sep, 2015 Generalized anxiety disorder F41.1 [place] [address] [place] [address] [place] [address] 07706- 7644 13 Sep, 2015 Cramp of both lower extremities R25.2 and Cervicalgia M54.2 [place] [address] 80052- 5159 06 Sep, 2015 Generalized anxiety disorder F41.1 [place] [address] [place] [address] [place] [address] 56909- 2524 Sep, [facility] [place] [address] [place] [address] [place] [address] 98406 -7444 August, Rash R21 ; Itching L29.9 and Allergic response, subsequent encounter T78.40XD [place] [address] [place] [address] [place] [address] 81867- 8888 August, Primary insomnia F51.01 [facility] [address] [place] [id number] [place] [address] 04394 -0791 August, Rash R21 ; Itching L29.9 and Allergic response, initial encounter T78.40XA [place] [address] [place] [address] [place] [address] 97835- 7192 August, [place] [address] 08610- 5601 August, Cramp of both lower extremities R25.2 [place] [address] [place] [address] [place] [address] 04168- 1696 August, Back pain M54.9 [place] [address] [place] [address] [place] [address] 01897- 9957 August, [place] [address] [place] [id number] [place] [address] 54346- 7935 August, [facility] [address] [address] -4312 August, Cramp of both lower extremities R25.2 [facility] [address] [address]- 0527 August, [facility] [address] [address]- 6410 August, Syncope R55 ; Paroxysmal atrial fibrillation I48.0 ; Dementia without behavioral disturbance, unspecified dementia type F03.90 and Chronic pain syndrome G89.4 [facility] [address] [place] [address] [address]- 0595 August, Type 2 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 and Syncope R55 [facility] [address] [address]- 0885 Jul, [facility] [address] [place] [id number] [place] [address] 61969- 2330 Jul, [facility] [address] [address]- 9122 Jul, [facility] [address] [address]- 4732 Jul, [facility] [address] [address]- 4429 Jul, [facility] [address] [id number] [address] Jul, UTI (urinary tract infection) N39.0 [facility] [address] [address] Jul, [facility] [address] [address] 9111 Jul, Major depressive disorder, recurrent episode, moderate F33.1 and Generalized anxiety disorder F41.1 [facility] [address] [address] 3241 Jul, Generalized anxiety disorder F41.1 [facility] [address] [address] 2038 14 Jul, 2015 Diarrhea R19.7 [facility] [address] [address] 2976 14 Jul, 2015 [facility] [address] [address] 6099 Jun, [facility] [id number] [place] [address] 15896- 7555 Jun, Eczema L30.9 [facility] [id number] [place] [address] 98115- 8148 Jun, [facility] [id number] [place] [address] 49805- 3414 Jun, COPD (chronic obstructive pulmonary disease) J44.9 [facility] [id number] [place] [address] 07424- 6998 Jun, [facility] [id number] [place] [address] 00038- 8813 Jun, Major depressive disorder, recurrent episode, moderate F33.1 and Generalized anxiety disorder F41.1 [facility] [address] [address]- 69[address] May, [facility] [address] [address]- 6235 May, UTI (urinary tract infection) N39.0 [facility] [address] [address]- 7155 17 May, 2015 [facility] [address] [address]- 2259 May, [facility] [address] [address]- 9054 May, [facility] [id number] [place] [address] 05552- 5714 May, [facility] [id number] [place] [address] 64926- 7965 Apr, Major depressive disorder, recurrent episode, moderate F33.1 and Generalized anxiety disorder F41.1 [facility] [id number] [place] [address] 30242- 2491 Apr, COPD (chronic obstructive pulmonary disease) J44.9 [facility] [id number] [place] [address] 74545- 1432 Apr, [facility] [id number] [place] [address] 23671- 0127 Apr, Atrial flutter I48.92 [facility] [id number] [place] [address] 46079- 3761 Apr, [facility] [id number] [place] [address] 17567- 8370 Apr, [facility] [id number] [place] [address] 21378- 9273 Mar, [facility] [id number] [place] [address] 41601- 4101 Mar, [facility] [id number] [place] [address] 81399- 4901 Mar, [facility] [id number] [place] [address] 30834- 3613 Mar, Hyperlipidemia E78.5 ; Type 2 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 ; Major depressive disorder, recurrent episode, moderate F33.1 and Chronic pain syndrome G89.4 [facility] [id number] [place] [address] 97022- 0418 Mar, [facility] [id number] [place] [address] 27547- 4212 14 Mar, 2015 [facility] [id number] [place] [address] 86972- 3090 Mar, [facility] [id number] [place] [address] 41364- 3583 Mar, [facility] [id number] [place] [address] 91729- 1099 Feb, COPD (chronic obstructive pulmonary disease) J44.9 and Back pain M54.9 [facility] [id number] [place] [address] 66371- 7090 Feb, [facility] [id number] [place] [address] 76799- 0785 Feb, [facility] [id number] [place] [address] 32741- 9958 Feb, [facility] [id number] [place] [address] 22375- 9810 Feb, [facility] [id number] [place] [address] 85367- 8255 Feb, [facility] [id number] [place] [address] 71413- 5099 Feb, [facility] [id number] [place] [address] 53640- 3303 Feb, [facility] [id number] [place] [address] 37675- 1931 Feb, [facility] [id number] [place] [address] 13063- 2324 Feb, Diabetes E11.9 ; Back pain M54.9 and COPD (chronic obstructive pulmonary disease) J44.9 [facility] [id number] [place] [address] 05759- 2125 Jan, [facility] [id number] [place] [address] 73117- 9162 Jan, Major depression, recurrent F33.9 and Generalized anxiety disorder F41.1 [facility] [id number] [place] [address] 76194- 7923 Jan, Chronic pain G89.29 [facility] [id number] [place] [address] 22654- 0909 Jan, [facility] [id number] [place] [address] 93733- 4861 Jan, [facility] [id number] [place] [address] 74698- 9658 Jan, [facility] [id number] [place] [address] 23528- 7940 Jan, [facility] [id number] [place] [address] 35983- 8823 Jan, Nicotine dependence F17.200 [facility] [id number] [place] [address] 20980- 9911 Jan, Nicotine dependence F17.200 and Back pain M54.9 [facility] [id number] [place] [address] 96504- 1743 Jan, [facility] [id number] [place] [address] 28060- 7773 28 Dec, 2014 [facility] [id number] [place] [address] 81596- 5118 25 Sep, 2014 Anxiety, generalized 300.02 and Major depression, recurrent 296.30 [facility] [id number] [place] [address] 03994- 5109 24 Sep, 2014 [facility] [id number] [place] [address] 80787- 0974 21 Sep, 2014 [facility] [id number] [place] [address] 15427- 7283 17 Sep, 2014 [facility] [id number] [place] [address] 76745- 6714 15 Sep, 2014 [facility] [id number] [place] [address] 82439- 9394 14 Dec, 2014 [facility] [id number] [place] [address] 63983- 0984 11 Dec, 2014 [facility] [id number] [place] [address] 61643- 8377 Dec, [facility] [id number] [place] [address] 77842- 4891 08 Dec, 2014 Skin tear 879.8 [facility] [id number] [place] [address] 84472- 4173 08 Dec, 2014 Routine gynecological examination V72.31 ; Breast cancer screening V76.10 and Family history of breast cancer in first degree relative V16.3 [facility] [id number] [place] [address] 86655- 7292 Dec, [facility] [id number] [place] [address] 05063- 8407 Dec, [facility] [id number] [place] [address] 46498- 0046 Nov, [facility] [id number] [place] [address] 58354- 1573 Nov, [facility] [id number] [place] [address] 27400- 3798 Nov, Poor balance 781.99 and Vascular dementia, uncomplicated 290.40 [facility] [id number] [place] [address] 75875- 5017 Nov, [facility] [id number] [place] [address] 11127- 8515 Nov, Major depression, recurrent 296.30 and Anxiety, generalized 300.02 [facility] [id number] [place] [address] 65165- 5025 Nov, [facility] [id number] [place] [address] 22717- 3252 Nov, [facility] [id number] [place] [address] 97859- 4637 Nov, [facility] [address] [address]- 2539 Nov, [facility] [address] [address]- 1841 Nov, Vascular dementia, uncomplicated 290.40 and Lumbago 724.2 [facility] [id number] [place] [address] 93348- 6295 Nov, [facility] [address] [address]- 6456 Nov, [facility] [id number] [place] [address] 30381- 4147 Nov, [facility] [id number] [place] [address] 91398- 8503 Oct, [facility] [id number] [place] [address] 90150- 7951 Oct, [facility] [address] [address]- 1744 Oct, [facility] [address] [address]- 7698 Oct, COPD (chronic obstructive pulmonary disease) 496 and Hyperlipidemia 272.4 [facility] [address] [address]- 8647 Oct, Major depression, recurrent 296.30 and Anxiety, generalized 300.02 [facility] [address] [address]- 9518 Oct, [facility] [address] [address]- 1781 Oct, [facility] [address] [address]- 0001 Oct, [facility] [address] [address]- 2213 Sep, Lumbago 724.2 and Anxiety state, unspecified 300.00 [facility] [address] [address]- 6779 Sep, [facility] [id number] [address]- 5678 Sep, [facility] [id number] [place] [address] 14365- 1403 August, [facility] [id number] [place] [address] 02882- 9482 August, Major depression, recurrent 296.30 ; Anxiety, generalized 300.02 and No condition on Wayne II V71.09 [facility] [id number] [address]- 5165 August, [facility] [id number] [address]- 3310 August, [facility] [id number] [address]- 2197 Jul, [facility] [address] [address]- 3242 Jul, [facility] [id number] [address]- 1002 Jul, [facility] [address] [address]- 3588 Jun, [facility] [address] [address]- 4911 Jun, [facility] [address] [address]- 4622 Jun, [facility] [address] [address]- 9233 Jun, [facility] [address] [address]- 1219 Jun, [facility] [place] [facility] [id number] [place] [address]- 5931 23 Jun, 2014 [facility] [place] [facility] [address] [id number] [place] [address]- 8698 23 Jun, 2014 [facility] [place] [facility] [address] [id number] [place] [address]- 6386 17 Jun, 2014 [facility] [place] [facility] [address] [id number] [place] [address]- 6097 13 Jun, 2014 [facility] [place] [facility] [address] [id number] [place] [address]- 0657 13 Jun, 2014 [facility] [place] [facility] [address] [id number] [place] [address]- 7354 10 Jun, 2014 [facility] [place] [facility] [address] [id number] [place] [address]- 2436 10 Jun, 2014 [facility] [place] [facility] [address] [id number] [place] [address]- 6019 Jun, 2014 [facility] [place] [facility] [address] [id number] [place] [address]- 4871 Jun, [facility] [place] [facility] [address] [id number] [place] [address]- 8745 Jun, 2014 [facility] [place] [facility] [address] [id number] [place] [address]- 2726 Jun, [facility] [place] [facility] [address] [id number] [place] [address]- 0684 May, 2014 [facility] [place] [facility] [address] [id number] [place] [address]- 9546 May, 2014 [facility] [place] [facility] [address] [id number] [place] [address]- 9606 May, 2014 [facility] [place] [facility] [address] [id number] [place] [address]- 9886 May, 2014 [facility] [place] [facility] [address] [id number] [place] [address]- 2807 May, 2014 [facility] [place] [facility] [address] [id number] [place] [address]- 1274 May, 2014 [facility] [place] [facility] [address] [id number] [place] [address]- 7266 May, 2014 [facility] [place] [facility] [address] [facility] [id number] [place] [address]- 3986 May, 2014 [facility] [place] [facility] [address] [id number] [place] [address]- 9713 May, 2014 [facility] [place] [facility] [address] [id number] [place] [address]- 2714 May, 2014 [facility] [place] [facility] [address] [facility] [id number] [place] [address]- 1512 May, 2014 [facility] [place] [facility] [address] [facility] [id number] [place] [address]- 2201 May, 2014 [facility] [place] [facility] [address] [facility] [id number] [place] [address]- 2345 May, [facility] [place] [facility] [address] [facility] [id number] [place] [address]- 5759 May, [facility] [place] [facility] [address] [facility] [id number] [place] [address]- 6745 Apr, [facility] [place] [facility] [address] [facility] [id number] [place] [address]- 8537 Apr, [facility] [place] [facility] [address] [facility] [id number] [address]- 2548 Apr, [facility] [place] [facility] [address] [id number] [place] [address]- 3933 Apr, [facility] [place] [facility] [address] [facility] [id number] [address]- 2124 Apr, [facility] [place] [facility] [address] [facility] [id number] [address]- 1533 Apr, [facility] [place] [facility] [address] [id number] [place] [address]- 1713 Apr, [facility] [place] [facility] [address] [id number] [place] [address]- 0565 Apr, [facility] [place] [facility] [address] [id number] [place] [address]- 4746 Apr, [facility] [place] [facility] [address] [id number] [place] [address]- 1077 Apr, [facility] [place] [facility] [address] [id number] [place] [address]- 4452 Apr, [facility] [place] [facility] [address] [id number] [place] [address]- 3043 Apr, [facility] [place] [facility] [address] [id number] [place] [address]- 8500 Mar, [facility] [place] [facility] [address] [id number] [place] [address]- 3578 31 Mar, 2014 [facility] [place] [facility] [address] [id number] [place] [address]- 1974 30 Mar, 2014 [facility] [place] [facility] [address] [id number] [place] [address]- 5733 30 Mar, 2014 [facility] [place] [facility] [address] [id number] [place] [address]- 7323 29 Mar, 2014 [facility] [place] [facility] [address] [id number] [place] [address]- 8407 29 Mar, 2014 [facility] [place] [facility] [address] [id number] [place] [address]- 6355 19 Mar, 2014 [facility] [place] [facility] [address] [id number] [place] [address]- 4607 19 Mar, 2014 [facility] [place] [facility] [address] [id number] [place] [address]- 4781 15 Mar, 2014 [facility] [place] [facility] [address] [id number] [place] [address]- 7523 15 Mar, 2014 [facility] [place] [facility] [address] [id number] [place] [address]- 4377 15 Mar, 2014 [facility] [place] [facility] [address] [id number] [place] 2336 Mar, [facility] [place] [facility] [address] [id number] [place] [address]- 8100 Mar, [facility] [place] [facility] [address] [id number] [place] [address]- 4836 Mar, [facility] [place] [facility] [address] [id number] [place] [address]- 7745 Mar, [facility] [place] [facility] [address] [id number] [place] [address]- 9395 Mar, [facility] [place] [facility] [address] [id number] [place] [address]- 1688 Mar, [facility] [place] [facility] [address] [id number] [place] [address]- 2863 Mar, [facility] [place] [facility] [address] [id number] [place] [address]- 7314 Mar, [facility] [place] [facility] [address] [id number] [place] [address]- 1544 Mar, [facility] [place] [facility] [address] [id number] [place] [address]- 0970 Feb, [facility] [place] [facility] [address] [id number] [address]- 9929 Feb, [facility] [place] [facility] [address] [id number] [place] [address]- 3726 Feb, [facility] [place] [facility] [address] [id number] [place] [address]- 4974 Feb, [facility] [place] [facility] [address] [id number] [place] [address]- 5764 Feb, [facility] [place] [facility] [address] [id number] [place] [address]- 8207 Feb, [facility] [place] [facility] [address] [id number] [place] [address]- 0221 Feb, [facility] [place] [facility] [address] [id number] [place] [address]- 0358 Feb, [facility] [place] [facility] [address] [id number] [place] [address]- 0091 Feb, [facility] [place] [facility] [address] [id number] [place] [address]- 9956 Feb, [facility] [place] [facility] [address] [id number] [place] [address]- 3934 Feb, [facility] [place] [facility] [address] [id number] [place] [address]- 3162 Feb, [facility] [place] [facility] [address] [id number] [place] [address]- 2977 Feb, [facility] [place] [facility] [address] [id number] [place] [address]- 0474 Feb, [facility] [place] [facility] [address] [id number] [place] [address]- 9764 Feb, [facility] [place] [facility] [address] [facility] [id number] [place] [address]- 9655 Feb, [facility] [place] [facility] [address] [id number] [place] [address]- 0717 Feb, [facility] [place] [facility] [address] [id number] [place] [address]- 0547 Jan, [facility] [place] [facility] [address] [id number] [place] [address]- 8988 Jan, [facility] [place] [facility] [address] [id number] [place] [address]- 8192 Jan, [facility] [place] [facility] [address] [id number] [place] [address] Jan, [facility] [place] [facility] [address] [id number] [place] [address] Jan, [facility] [place] [facility] [address] [id number] [place] [address] Jan, [facility] [place] [facility] [address] [id number] [place] [address] Jan, [facility] [place] [facility] [address] [id number] [place] [address] Jan, [facility] [place] [facility] [address] [id number] [place] [address] Jan, [facility] [place] [facility] [address] [id number] [place] [address] Jan, [facility] [place] [facility] [address] [id number] [place] [address] Jan, [facility] [place] [facility] [address] [id number] [place] [address]- [address] Dec, [facility] [place] [facility] [address] [id number] [place] [address] Dec, [facility] [place] [facility] [address] [id number] [place] [address] Nov, [facility] [place] [facility] [address] [id number] [address] Nov, [facility] [place] [facility] [address] [id number] [address] Nov, [facility] [place] [facility] [address] [id number] [place] [address]- [address] Nov, [facility] [place] [facility] [address] [id number] [place] [address]- [address] Nov, [facility] [place] [facility] [address] [id number] [address] Nov, [facility] [place] [facility] [address] [id number] [address] Nov, [facility] [place] [facility] [address] [id number] [place] [address]- [address] Oct, [facility] [place] [facility] [address] [id number] [place] [address]- [address] Oct, [facility] [place] [facility] [address] [id number] [place] [address]- [address] Oct, [facility] [place] [facility] [address] [id number] [place] [address]- [address] Oct, [facility] [place] [facility] [address] [id number] [place] [address]- [address] Sep, [facility] [place] [facility] [address] [id number] [place] [address] Sep, [facility] [place] [facility] [address] [id number] [place] [address]- [address] Sep, [facility] [place] [facility] [address] [id number] [place] [address]- [address] Sep, [facility] [place] [facility] [address] [id number] [place] [address]- [address]686 Sep, [facility] [place] [facility] [address] [id number] [place] [address]- [address] Sep, [facility] [place] [facility] [address] [id number] [place] [address]- [address]261 Sep, [facility] [place] [facility] [address] [id number] [place] [address]- [address]16 Sep, [facility] [place] [facility] [address] [id number] [place] [address] Sep, [facility] [place] [facility] [address] [id number] [place] [address]- [address] Sep, [facility] [place] [facility] [address] [facility] [id number] [place] [address]- [address] Sep, [facility] [place] [facility] [address] [id number] [place] [address] Sep, [facility] [place] [facility] [address] [id number] [place] [address]- [address] Sep, [facility] [place] [facility] [address] [id number] [place] [address] Sep, [facility] [place] [facility] [address] [id number] [place] [address] August, [facility] [place] [facility] [address] [id number] [place] [address]- [address] August, [facility] [place] [facility] [address] [id number] [place] [address] August, [facility] [place] [facility] [address] [id number] [place] [address] August, [facility] [place] [facility] [address] [id number] [place] [address]- [address] August, [facility] [place] [facility] [address] [id number] [place] [address] August, [facility] [place] [facility] [address] [id number] [place] [address]- [address] August, [facility] [place] [facility] [address] [id number] [place] [address]- [address] August, [facility] [place] [facility] [address] [id number] [place] [address] August, [facility] [place] [facility] [address] [id number] [place] [address] August, [facility] [place] [facility] [address] [id number] [place] [address] August, [facility] [place] [facility] [address] [id number] [place] [address] August, [facility] [place] [facility] [address] [id number] [place] [address] August, [facility] [place] [facility] [address] [id number] [place] [address] 9668 August, [facility] [place] [facility] [address] [id number] [place] [address] 97[address] August, [facility] [place] [facility] [address] [id number] [place] [address] 7648 August, [facility] [place] [facility] [address] [id number] [place] [address] 6366 August, [facility] [place] [facility] [address] [id number] [place] [address] 9624 August, [facility] [place] [facility] [address] [id number] [place] [address]- 4666 August, [facility] [place] [facility] [address] [id number] [place] [address]- 480[address] Jul, [facility] [place] [facility] [address] [id number] [place] [address] 9126 Jul, [facility] [place] [facility] [address] [id number] [place] [address] 2433 Jul, [facility] [place] [facility] [address] [id number] [place] [address]- 7358 Jul, [facility] [place] [facility] [address] [id number] [place] [address]- 2568 Jun, [facility] [place] [facility] [address] [id number] [place] [address]- 0969 Jun, [facility] [place] [facility] [address] [id number] [place] [address]- 2720 Jun, [facility] [place] [facility] [address] [id number] [place] [address]- 2724 Jun, [facility] [place] [facility] [address] [id number] [place] [address]- 2755 Jun, [facility] [place] [facility] [address] [id number] [place] [address]- 9681 17 Jun, 2013 [facility] [place] [facility] [address] [id number] [place] [address]- 5027 14 Jun, 2013 [facility] [place] [facility] [address] [id number] [place] [address]- 0847 14 Jun, 2013 [facility] [place] [facility] [address] [id number] [place] [address]- 2824 06 Jun, 2013 [facility] [place] [facility] [address] [id number] [place] [address]- 2152 06 Jun, 2013 [facility] [place] [facility] [address] [id number] [place] [address]- 7544 27 May, 2013 [facility] [place] [facility] [address] [id number] [place] [address]- 1925 27 May, 2013 [facility] [place] [facility] [address] [id number] [place] [address]- 2879 27 May, 2013 [facility] [place] [facility] [address] [id number] [place] [address]- 3807 27 May, 2013 [facility] [place] [facility] [address] [id number] [place] [address]- 1344 May, [facility] [place] [facility] [address] [facility] [id number] [place] [address]- 7122 21 May, 2013 [facility] [place] [facility] [address] [facility] [id number] [place] [address]- 4672 20 May, 2013 [facility] [place] [facility] [address] [id number] [place] [address]- 1145 May, [facility] [place] [facility] [address] [id number] [place] [address]- 4482 May, [facility] [place] [facility] [address] [facility] [id number] [place] [address]- 3199 18 May, 2013 [facility] [place] [facility] [address] [facility] [id number] [place] [address]- 4371 18 May, 2013 [facility] [place] [facility] [address] [id number] [place] [address]- 5909 17 May, 2013 [facility] [place] [facility] [address] [id number] [place] [address]- 7736 May, [facility] [place] [facility] [address] [facility] [id number] [place] [address]- 5616 May, [facility] [place] [facility] [address] [id number] [place] [address]- 3743 May, [facility] [place] [facility] [address] [id number] [place] [address]- 5354 May, [facility] [place] [facility] [address] [facility] [id number] [place] [address]- 1340 May, [facility] [place] [facility] [address] [facility] [id number] [place] [address]- 6750 Apr, [facility] [place] [facility] [address] [facility] [id number] [place] [address]- 2193 Apr, [facility] [place] [facility] [address] [facility] [id number] [place] [address]- 9184 Apr, [facility] [place] [facility] [address] [facility] [id number] [place] [address]- 2995 Apr, [facility] [place] [facility] [address] [facility] [id number] [address] 376[address] Apr, [facility] [place] [facility] [address] [facility] [id number] [address] 8058 Apr, [facility] [place] [facility] [address] [facility] [id number] [place] [address]- 4419 Apr, [facility] [place] [facility] [address] [facility] [id number] [place] [address]- 9750 Mar, [facility] [place] [facility] [address] [facility] [id number] [place] [address]- 3476 Mar, [facility] [place] [facility] [address] [id number] [place] [address]- 5878 Mar, [facility] [place] [facility] [address] [id number] [place] [address]- 0926 Mar, [facility] [place] [facility] [address] [id number] [place] [address]- 7876 Mar, [facility] [place] [facility] [address] [id number] [place] [address]- 4156 Mar, [facility] [place] [facility] [address] [id number] [place] [address]- 5175 Mar, [facility] [place] [facility] [address] [id number] [place] [address]- 3964 Mar, [facility] [place] [facility] [address] [id number] [place] [address]- 2704 Mar, [facility] [place] [facility] [address] [id number] [place] [address]- 5879 Mar, [facility] [place] [facility] [address] [id number] [place] [address]- 1586 Mar, [facility] [place] [facility] [address] [id number] [place] [address]- 1245 Feb, [facility] [place] [facility] [address] [id number] [place] [address]- 8755 Feb, [facility] [place] [facility] [address] [id number] [place] [address]- 3689 Feb, [facility] [place] [facility] [address] [id number] [place] [address]- 8253 Feb, [facility] [place] [facility] [address] [id number] [place] [address]- 5603 Feb, [facility] [place] [facility] [address] [id number] [place] [address]- 9353 Feb, [facility] [place] [facility] [address] [id number] [place] [address] 8919 15 Feb, 2013 [facility] [place] [facility] [address] [id number] [place] [address]- 4976 14 Feb, 2013 [facility] [place] [facility] [address] [id number] [place] [address]- 9812 14 Feb, 2013 [facility] [place] [facility] [address] [id number] [place] [address]- 3535 13 Feb, 2013 [facility] [place] [facility] [address] [id number] [address]- 7329 13 Feb, 2013 [facility] [place] [facility] [address] [id number] [place] [address]- 0927 Feb, [facility] [place] [facility] [address] [id number] [place] [address]- 4692 Feb, [facility] [place] [facility] [address] [id number] [place] [address]- 8601 Feb, [facility] [place] [facility] [address] [id number] [place] [address]- 9100 Feb, [facility] [place] [facility] [address] [id number] [address]- 5329 Feb, [facility] [place] [facility] [address] [id number] [place] [address]- 8226 Jan, [facility] [place] [facility] [address] [id number] [place] [address]- 0586 24 Jan, 2013 [facility] [place] [facility] [address] [id number] [place] [address]- 0218 24 Jan, 2013 [facility] [place] [facility] [address] [id number] [place] [address]- 4729 24 Jan, 2013 [facility] [place] [facility] [address] [id number] [address]- 6463 24 Jan, 2013 [facility] [place] [facility] [address] [id number] [place] [address]- 1169 Jan, [facility] [place] [facility] [address] [id number] [place] [address]- 4363 22 Jan, 2013 [facility] [place] [facility] [address] [id number] [place] [address]- 4453 10 Jan, 2013 [facility] [place] [facility] [address] [id number] [place] [address]- 3866 10 Jan, 2013 [facility] [place] [facility] [address] [id number] [place] [address]- 4952 27 Dec, 2012 [facility] [place] [facility] [address] [id number] [place] [address] 2541 20 Dec, 2012 [facility] [place] [facility] [address] [id number] [place] [address]- 1290 19 Dec, 2012 [facility] [place] [facility] [address] [id number] [place] [address]- 6593 10 Dec, 2012 [facility] [place] [facility] [address] [id number] [place] [address]- 5138 04 Dec, 2012 [facility] [place] [facility] [address] [id number] [place] [address]- 2548 03 Dec, 2012 [facility] [place] [facility] [address] [id number] [place] [address]- 5754 Nov, [facility] [place] [facility] [address] [id number] [place] [address]- 1663 Nov, [facility] [place] [facility] [address] [id number] [place] [address] 2541 Nov, [facility] [place] [facility] [address] [id number] [place] [address]- 2540 Nov, [facility] [place] [facility] [address] [id number] [place] [address] 2544 Nov, [facility] [place] [facility] [address] [id number] [place] [address]- 2544 Nov, [facility] [place] [facility] [address] [id number] [place] [address]- 5127 Nov, [facility] [place] [facility] [address] [id number] [place] [address]- 7960 Nov, [facility] [place] [facility] [address] [id number] [place] [address]- 1587 Nov, [facility] [place] [facility] [address] [id number] [place] [address]- 1357 Nov, [facility] [place] [facility] [address] [id number] [place] [address]- 6307 Oct, [facility] [place] [facility] [address] [id number] [place] [address]- 8602 Oct, [facility] [place] [facility] [address] [id number] [place] [address]- 0407 Oct, [facility] [place] [facility] [address] [id number] [place] [address]- 3557 Oct, [facility] [place] [facility] [address] [id number] [place] [address]- 6565 Oct, [facility] [place] [facility] [address] [id number] [place] [address]- 6150 Oct, [facility] [place] [facility] [address] [id number] [place] [address]- 8873 Oct, [facility] [place] [facility] [address] [id number] [place] [address]- 9941 Oct, [facility] [place] [facility] [address] [id number] [place] [address]- 2331 Sep, [facility] [place] [facility] [address] [id number] [place] [address]- 4447 Sep, [facility] [place] [facility] [address] [id number] [place] [address]- 3968 Sep, [facility] [place] [facility] [address] [id number] [place] [address]- 3225 Sep, [facility] [place] [facility] [address] [id number] [place] [address]- 5742 Sep, [facility] [place] [facility] [address] [id number] [place] [address]- 7165 Sep, [facility] [place] [facility] [address] [id number] [place] [address]- 2951 Sep, [facility] [place] [facility] [address] [id number] [place] [address]- 9788 Sep, [facility] [place] [facility] [address] [id number] [place] [address]- 3214 August, [facility] [place] [facility] [address] [id number] [place] [address]- 8351 August, [facility] [place] [facility] [address] [id number] [place] [address]- 6538 August, [facility] [place] [facility] [address] [id number] [place] [address]- 5413 August, [facility] [place] [facility] [address] [id number] [place] [address]- 9155 August, [facility] [place] [facility] [address] [id number] [place] [address]- 9603 Jul, [facility] [place] [facility] [address] [id number] [place] [address]- 2959 Jul, [facility] [place] [facility] [address] [id number] [place] [address]- 5487 Jul, [facility] [place] [facility] [address] [id number] [place] [address]- 2350 Jul, [facility] [place] [facility] [address] [id number] [place] [address]- 7936 Jul, [facility] [place] [facility] [address] [id number] [place] 2730 Jun, [facility] [place] [facility] [address] [id number] [place] [address] Jun, [facility] [place] [facility] [address] [id number] [place] [address]- 1937 15 Jun, 2012 [facility] [address] [id number] [place] [address]- 0662 14 Jun, 2012 [facility] [place] [facility] [address] [id number] [place] [address]- 8176 12 Jun, 2012 [facility] [place] [facility] [address] [id number] [place] [address]- 4839 08 Jun, 2012 [facility] [place] [facility] [address] [id number] [place] [address]- 5301 08 Jun, 2012 [facility] [place] [facility] [address] [id number] [place] [address]- 0746 02 Jun, 2012 [facility] [place] [facility] [address] [id number] [place] [address]- 7786 Jun, [facility] [address] [id number] [place] [address]- 2348 May, [facility] [address] [id number] [place] [address]- 5541 May, [facility] [address] [id number] [place] [address]- 8612 May, [facility] [address] [id number] [place] [address]- 2476 May, [facility] [address] [id number] [place] [address]- 8891 Apr, [facility] [address] [id number] [place] [address]- 4211 Apr, [facility] [place] [facility] [address] [id number] [place] [address]- 9819 Apr, [facility] [place] [facility] [address] [id number] [place] [address]- 7296 Apr, [facility] [place] [facility] [address] [id number] [place] [address]- 7315 Apr, [facility] [address] [id number] [place] [address]- 9465 Apr, [facility] [address] [id number] [place] [address]- 6118 Apr, [facility] [address] [id number] [place] [address]- 7421 Mar, [facility] [place] [id number] Mar, [facility] [address] [id number] [place] [address]- 5158 Mar, [facility] [address] [id number] [place] [address]- 1239 Mar, [facility] [address] [id number] [place] [address]- 4731 Mar, [facility] [address] [id number] [place] [address]- 9294 Mar, [facility] [address] [id number] [place] [address]- 1372 Mar, [facility] [address] [id number] [place] [address]- 6888 Mar, [facility] [address] [id number] [place] [address]- 4840 Mar, [facility] [address] [id number] [place] [address]- 6619 Mar, [facility] [address] [id number] [place] [address]- 0643 Mar, [facility] [address] [id number] [place] [address]- 4706 Mar, [facility] [address] [id number] [place] [address]- 9744 Mar, [facility] [address] [id number] [address]- 4472 Mar, [facility] [place] [facility] [address] [id number] [place] [address]- 9398 Mar, [facility] [place] [facility] [address] [id number] [place] [address]- 7144 Mar, [facility] [place] [facility] [address] [id number] [place] [address]- 3087 Mar, [facility] [place] [facility] [address] [id number] [place] [address]- 6448 Feb, [facility] [place] [facility] [address] [id number] [place] [address]- 3249 Feb, [facility] [place] [facility] [address] [id number] [place] [address]- 4699 Feb, [facility] [place] [facility] [address] [id number] [place] [address]- 3400 Feb, [facility] [place] [facility] [address] [id number] [place] [address]- 8124 Feb, [facility] [place] [facility] [address] [id number] [place] [address]- 2703 Feb, [facility] [place] [facility] [address] [id number] [place] [address]- 7757 Feb, [facility] [place] [facility] [address] [id number] [address]- 3189 Feb, [facility] [place] [facility] [address] [id number] [place] [address]- 1888 Feb, [facility] [place] [facility] [address] [id number] [place] [address]- 4565 Feb, [facility] [place] [facility] [address] [id number] [place] [address]- 4595 Feb, [facility] [place] [facility] [address] [id number] [place] [address]- 8821 Feb, [facility] [place] [facility] [address] [id number] [place] [address]- 9991 Feb, [facility] [place] [facility] [address] [id number] [place] [address]- 5023 Feb, [facility] [place] [facility] [address] [id number] [place] [address]- 3316 Feb, [facility] [place] [facility] [address] [id number] [place] [address]- 5850 Feb, [facility] [place] [facility] [address] [id number] [place] [address]- 9340 Jan, [facility] [place] [facility] [address] [id number] [place] [address]857 Jan, [facility] [place] [facility] [address] [id number] [place] [address]- 3643 Jan, [facility] [place] [facility] [address] [id number] [place] [address]- 8092 Jan, [facility] [place] [facility] [address] [id number] [place] [address]- 7492 Jan, [facility] [place] [facility] [address] [id number] [place] [address]- 6874 Jan, [facility] [place] [facility] [address] [id number] [place] [address]- 7864 Jan, [facility] [place] [facility] [address] [id number] [place] [address]- 2601 Jan, [facility] [place] [facility] [address] [id number] [place] [address]- 3855 Jan, [facility] [place] [facility] [address] [id number] [place] 3852 Jan, [facility] [place] [facility] [address] [id number] [place] [address]- 1703 Jan, [facility] [place] [facility] [address] [id number] [id number] 9417 Jan, [facility] [place] [facility] [address] [id number] [place] [address]- 1116 Jan, [facility] [place] [facility] [address] [id number] [place] [address]- 0902 Jan, [facility] [place] [facility] [address] [id number] [place] [address]- 4359 08 Jan, 2012 [facility] [place] [facility] [address] [id number] [place] [address]- 8924 05 Jan, 2012 [facility] [place] [facility] [address] [id number] [place] [address] 04 Jan, 2012 [facility] [place] [facility] [address] [id number] [place] [address] 21 Dec, 2011 [facility] [place] [facility] [address] [id number] [place] [address] 20 Dec, 2011 [facility] [place] [facility] [address] [id number] [place] [address] 4847 18 Dec, 2011 [facility] [place] [facility] [address] [id number] [place] [address] 2662 18 Dec, 2011 [facility] [place] [facility] [address] [id number] [place] [address] 3634 10 Dec, 2011 [facility] [place] [facility] [address] [id number] [place] [address] 2544 10 Dec, 2011 [facility] [place] [facility] [address] [id number] [place] [address] 10 Dec, 2011 [facility] [place] [facility] [address] [id number] [place] [address] 2547 07 Dec, 2011 [facility] [place] [facility] [address] [id number] [place] [address] 1635 30 Nov, 2011 [facility] [place] [facility] [address] [id number] [place] [address] 9040 25 Nov, 2011 [facility] [place] [facility] [address] [id number] [place] [address] 59[address] Nov, [facility] [place] [facility] [address] [id number] [place] [address]306 Nov, [facility] [place] [facility] [address] [id number] [place] [address] 1516 Nov, [facility] [place] [facility] [address] [id number] [place] [address]106 Nov, [facility] [place] [facility] [address] [id number] [place] [address] Oct, [facility] [place] [facility] [address] [id number] [place] [address] Oct, [facility] [place] [facility] [address] [id number] [place] [address] 7703 Oct, [facility] [place] [facility] [address] [id number] [place] [address]- [address] Oct, [facility] [place] [facility] [address] [id number] [place] [address]235 Oct, [facility] [place] [facility] [address] [id number] [place] [address] 266[address] Oct, [facility] [place] [facility] [address] [id number] [place] [address]- 0755 Oct, [facility] [place] [facility] [address] [id number] [place] [address] Sep, [facility] [place] [facility] [address] [id number] [place] [address]236 Sep, [facility] [place] [facility] [address] [id number] [place] [address] Sep, [facility] [place] [facility] [address] [id number] [place] [address] 2967 Sep, [facility] [place] [facility] [address] [id number] [place] [address] Sep, [facility] [place] [facility] [address] [id number] [place] [address]381 15 Sep, 2011 [facility] [place] [facility] [address] [id number] [place] [address]- 9696 14 Sep, 2011 [facility] [place] [facility] [address] [id number] [place] [address] 2815 Sep, [facility] [place] [facility] [address] [id number] [place] [address]- 1399 05 Sep, 2011 [facility] [place] [facility] [address] [id number] [place] [address]- [address]12 04 Sep, 2011 [facility] [place] [facility] [address] [id number] [place] [address] 7060 August, [facility] [place] [facility] [address] [id number] [place] [address] August, [facility] [place] [facility] [address] [id number] [place] [address] 270[address] August, [facility] [place] [facility] [address] [id number] [place] [address] 6[address] August, [facility] [place] [facility] [address] [id number] [place] [address]106 August, [facility] [place] [facility] [address] [id number] [place] [address] Jul, [facility] [place] [facility] [address] [id number] [place] [address]271 Jul, [facility] [place] [facility] [address] [id number] [place] [address]- 3732 25 Jul, 2011 [facility] [place] [facility] [address] [id number] [place] [address]- 2534 17 Jul, 2011 [facility] [place] [facility] [address] [id number] [place] [address]- 5971 11 Jul, 2011 [facility] [place] [facility] [address] [id number] [place] [address]- 1822 Jul, [facility] [place] [facility] [address] [id number] [place] [address]- 1104 Jul, [facility] [place] [facility] [address] [id number] [place] [address]- [address]276 Jun, [facility] [place] [facility] [address] [facility] [id number] [place] [address]- [address]176 Jun, [facility] [place] [facility] [address] [id number] [place] [address]- [address]321 Jun, [facility] [place] [facility] [address] [id number] [place] [address]- 6473 Jun, [facility] [place] [facility] [address] [facility] [id number] [place] [address]- 4636 Jun, [facility] [place] [facility] [address] [facility] [id number] [place] [address]- 5717 May, [facility] [place] [facility] [address] [id number] [place] [address]- 7734 May, [facility] [place] [facility] [address] [id number] [place] [address]- 2469 May, [facility] [place] [facility] [address] [facility] [id number] [place] [address]- 3555 May, [facility] [place] [facility] [address] [id number] [address] May, [facility] [place] [facility] [address] [facility] [id number] [place] [address] 9378 May, [facility] [place] [facility] [address] [facility] [id number] [place] [address] 0756 Apr, [facility] [place] [facility] [address] [facility] [id number] [place] [address] 7686 Mar, [facility] [place] [facility] [address] [facility] [id number] [place] [address]- 1586 Feb, [facility] [place] [facility] [address] [id number] [place] [address]- 7071 07 Feb, 2011 [facility] [place] [facility] [address] [id number] [place] [address] 7532 Feb, [facility] [place] [facility] [address] [id number] [place] [address]- 6836 Feb, [facility] [place] [facility] [address] [id number] [place] [address]- 8854 Jan, [facility] [place] [facility] [address] [id number] [place] [address]- 8513 Jan, [facility] [place] [facility] [address] [id number] [place] [address]- 5010 Jan, [facility] [place] [facility] [address] [id number] [place] [address]- 5767 24 Jan, 2011 [facility] [place] [facility] [address] [id number] [place] [address]- 0121 14 Jan, 2011 [facility] [place] [facility] [address] [id number] [place] [address]- 8296 Dec, [facility] [place] [facility] [address] [id number] [place] [address]- 7256 Oct, [facility] [place] [facility] [address] [id number] [place] [address]- 0573 August, [facility] [place] [facility] [address] [id number] [place] [address]- 5561 29 Mar, 2010 [facility] [place] [facility] [address] [id number] [place] [address]- 2543 27 Mar, 2010 [facility] [place] [facility] [address] [id number] [place] [address] 16 Mar, 2010 [facility] [place] [facility] [address] [id number] [place] [address] 2546 15 Mar, 2010 [facility] [place] [facility] [address] [id number] [place] [address] 15 Mar, 2010 [facility] [place] [facility] [address] [id number] [place] [address] 08 Mar, 2010 [facility] [place] [facility] [address] [id number] [place] [address] Mar, [facility] [place] [facility] [address] [id number] [place] [address] Feb, [facility] [place] [facility] [address] [id number] [place] [address] Feb, [facility] [place] [facility] [address] [id number] [place] [address] Feb, [facility] [place] [facility] [address] [id number] [place] [address] Jan, [facility] [place] [facility] [address] [id number] [place] [address] Jan, [facility] [place] [facility] [address] [id number] [address] Jan, [facility] [place] [facility] [address] [id number] [place] [address] Nov, [facility] [place] [facility] [address] [id number] [address] Sep, [facility] [place] [facility] [address] [id number] [address] August, [facility] [place] [facility] [address] [id number] [address] Mar, [facility] [place] [facility] [address] [id number] [place] [address] Mar, [facility] [place] [facility] [address] [id number] [address] 17 Feb, 2009 [facility] [place] [facility] [address] [id number] [place] [address] Feb, [facility] [place] [facility] [id number] [address] 10 Feb, 2009 [facility] [id number] [address] Feb, [facility] [id number] [address] Feb, [facility] [id number] [address] Jan, [facility] [id number] [address] Jan, [facility] [id number] [place] [address] Jan, [facility] [id number] [place] [address] Jan, [facility] [id number] [place] [address] Nov, [facility] [address] [address] Sep, [facility] [id number] [address] August, [facility] [address] [address] Jul, [facility] [address] [address] May, IMMUNIZATIONS No Known Immunizations SOCIAL HISTORY Never Assessed REASON FOR VISIT Baclofen PLAN OF CARE VITAL SIGNS MEDICATIONS Medication [...]
--- NOTE | 2017-07-04 13:21 | Progress Note-Pre Operative ---
Pre-Operative Progress Note H&P Reviewed The H&P was reviewed, patient examined and no changes noted. Date Seen by Provider: Jul 04, 2017 Time Seen by Provider: 12:45 Date H&P Reviewed: Jul 04, 2017 Time H&P Reviewed: 12:45 Pre-Operative Diagnosis: recurrent dysphagia PETAR NORMAN MD Jul 04, 2017 1:21 pm
--- NOTE | 2017-07-04 13:21 | Conscious Sedation/ASA ---
Conscious Sedation Pre-Proced Time Reviewed: 12:45 ASA Class: 3 Airway Mallampati Classification: ([place] appropriate class) I. II. III, IV Lungs Heart ASA score ASA 1: a normal healthy patient ASA 2: a patient with a mild systemic disease (mid diabetes, controlled hypertension, obesity ASA 3: a patient with a severe systemic disease that limits activity (angina , COPD, prior Myocardial infarction) ASA 4: a patient with an incapacitating disease that is a constant threat to life (CHF, renal failure) ASA 5: a moribund patient not expected to survive 24 hrs. (ruptured aneurysm) ASA 6: a declared brain patient whose organs are being harvested. For emergent operations, add the letter E after the classification Grade 2 Sedation Plan: Analgesia, Amnesia, Plan communicated to team members, Discussed options with patient/fam, Discussed risks with patient/fam Note The patient is an appropriate candidate to undergo the planned procedure, sedation, and anesthesia. The patient immediately re-assessed prior to indication. PETAR NORMAN MD Jul 04, 2017 1:20 pm
[2017-07-04] MEDS ORDERED: ACETAMINOPHEN 325 MG TABLET/CAPLET (TYLENOL) PO PRN (13:30)
[2017-07-04] MEDS ORDERED: morphine INJ 10 MG/ML 1ML (SYR OR VIAL) IV PRN (13:30)
[2017-07-04] MEDS ORDERED: ONDANSETRON 4 MG/2 ML (SDV) Z0FRAN IV PRN (13:30)
[2017-07-04] MEDS ORDERED: HYDROcodone/APAP 5 MG/325 MG (LORTAB) TAB PO PRN (13:30)
[2017-07-04] MEDS ORDERED: fentaNYL INJECTION 100 MCG/2 ML AMP ONE (14:17)
[2017-07-04] MEDS ORDERED: MIDAZOLAM 2 MG/2 ML (VERSED) VIAL ONE ×5 (14:17→14:18)
[2017-07-04] MEDS ORDERED: LIDOCAINE JELLY 2% (XYLOCAINE) 5 ML TUBE ONE (14:17)
[2017-07-04] MEDS ORDERED: HURRICAINE EXT TUBE (BENZOCAINE) ONE (14:18)
[2017-07-04] MEDS ORDERED: proPOfol 200 MG/20 ML (DIPRIVAN) VIAL IV ONE (14:24)
--- NOTE | 2017-07-04 14:35 | Progress Note-Post Operative ---
Post-Operative Progess Note Surgeon (s)/Treating Engineer (s) Surgeon PETAR NORMAN MD Treating Engineer: none Pre-Operative Diagnosis recurrent dysphagia Post-Operative Diagnosis reflux esophagitis(class B), distal esophageal stricture, moderate gastritis, mild duodenitis. Procedure & Operative Findings Date of Procedure 07/04/17 Procedure Performed/Findings EGD with bx and balloon dilatation. Anesthesia Type MAC Estimated Blood Loss Estimated blood loss (mL): minimal Specimens/Packing Specimens Removed antrum, GE PETAR NORMAN MD Jul 04, 2017 14:35
--- NOTE | 2017-07-04 14:36 | Discharge Inst-Surgical ---
D/C Lap Instructions-ESTER Follow Up PRN Activity as tolerated High Fiber Diet 25g or more per day Avoid Alcohol, Caffeine, Spicy [place] and Acid foods. Drink 64 fluid oz or more of fluids per day. Symptoms to Report: Fever over 101 degree F, Nausea/Vomiting If any problems/questions: Contact your physician or go to Emergency Room PETAR NORMAN MD Jul 04, 2017 14:36
--- NOTE | 2017-07-04 15:09 | Progress Note-Standard ---
Standard Progress Note Progress Notes/Assess & Plan Date Seen by Provider: Jul 04, 2017 Time Seen by Provider: 14:35 Progress/Assessment & Plan Anesthesia Note ([id number]) ASA Class 3 Anesthesia Type: MAC Anesthesia Start Time: 1434 Procedure Start Time: 1439 Procedure End Time: 1450 Anesthesia End Time: 1452 Called to endoscopy after midazolam 2 mg IV given by general neurologist to assist with sedation for an EGD. Pt with a previous history of difficult sedation per endo nursing staff. An additional 150 mg propofol was given in divided doses throughout the procedure. Her VS remained stable throughout and she maintained spontaneous ventilation throughout, monitored by EtCO2. She tolerated the procedure well. Will be available as needed. RADHA MEDEIROS DO Jul 04, 2017 15:09
--- NOTE | 2017-07-04 15:10 | Anesthesia-General Post-Op ---
MAC Patient Condition Mental Status/LOC: Same as Preop Cardiovascular: Satisfactory Nausea/Vomiting: Absent Respiratory: Satisfactory Pain: Controlled Complications: Absent Post Op Complications Complications None Follow Up Care/Instructions Patient Instructions None needed. Anesthesiology Discharge Order Discharge Order Patient is doing well, no complaints, stable vital signs, no apparent adverse anesthesia problems. RADHA MEDEIROS DO Jul 04, 2017 15:10
[2017-07-04 15:30] VITALS: BP 105/69
[2017-07-04 15:50] VITALS: BP 117/66
--- NOTE | 2017-07-04 21:18 | OPERATIVE REPORT ---
DATE OF SERVICE: 07/04/2017 ATTENDING PRIMARY CARE PHYSICIAN: Aneudy Petit MD. PREOPERATIVE DIAGNOSES: Recurrent dysphagia, history of Celaya's esophagus. POSTOPERATIVE DIAGNOSES: Reflux esophagitis class B, mild distal esophageal stricture, moderate gastritis, moderate duodenitis. PROCEDURE PERFORMED: EGD with biopsy and balloon dilatation. SURGEON: Petar Noramn MD. ANESTHESIA: Monitored anesthesia care. ESTIMATED BLOOD LOSS: Minimal. FINDINGS: Mild distal esophageal stricture, reflux esophagitis class B, moderate severity gastritis and duodenitis. DISPOSITION: The patient tolerated the procedure well. The patient is a 61-year-old female known to us. She has multiple medical problems as well as gastrointestinal issues. She has struggled with gastroesophageal reflux disease and peptic ulcer disease for many years and also has a history of Celaya's esophagus. She underwent a Hill gastropexy in 2006. We started seeing her in 2011 for recurrent episodes of dysphagia. She has undergone several EGDs as well as dilatations. She reports that this does help her symptoms. Her last EGD was done in 02/2017 where she was again found to have a mild distal esophageal stricture and reflux esophagitis class B as well as a mild to moderate gastritis and duodenitis with no distal obstructions. She reports recurrent symptoms of dysphagia for the past 2 weeks and reports difficulty with solids and would have regurgitation. She is currently on Protonix 40 mg b.i.d. She does have continued risk factors including a 45+ pack year smoking history and taking a number of medications as well as caffeine daily. DESCRIPTION OF PROCEDURE: The patient was brought to the endoscopy suite, laid in the left lateral decubitus position. After adequate IV pain and sedative medications and monitored anesthesia care, the mouthpiece was applied. The endoscope was placed in the mouth, visualizing the pharynx and hypopharyngeal region. Vocal cords, epiglottis and vallecula identified appeared to be normal. The endoscope was gently intubated in the esophageal opening and esophagus insufflated. The endoscope was then advanced to the first, second and third portion of the esophagus. At the level of the GE junction, a reflux esophagitis class B identified as well as a mild distal esophageal stricture. A biopsy was taken with forceps with visualization of good hemostasis. The endoscope was then advanced into the stomach and endoscope retroflexed visualizing these mild strictures well. There was a moderate severity gastritis as well as duodenitis. However, there were no ulcers, polyps or any neoplasms or any distal obstructions identified. Biopsies were taken of the antrum, stomach antrum as well as the duodenum with forceps with visualization good hemostasis. We then proceeded with dilatation of the distal esophageal stricture using a CRE fixed guidewire balloon. This was first insufflated to 3 atmospheres of pressure or 18 mm with no resistance. We proceeded to 4.5 atmospheres or 19 mm with mild resistance. We then proceeded to 6 atmospheres of pressure or 20 mm in diameter with mild to moderate resistance and left this in place for approximately 60 seconds. The balloon was then desufflated and removed. There were no mucosal tears identified as well as no bleeding. Endoscope was then slowly withdrawn while taking a second look and suctioning of residual air with no additional findings. The patient tolerated the procedure well. We will have her continue with medical management with her Protonix as well as the lifestyle and diet changes including cessation of smoking and caffeinated beverages. Job ID: [id number] DocumentID: [id number] Dictated Date: 07/04/2017 14:59:59 Oral And Maxillofacial Surgery Resident Date: 07/04/2017 21:17:42 Dictated By: PETAR NORMAN MD
== END 2017-07-04 15:53 | disposition home or self-care (01) ==
LOC: ENDO 11:54
PROVIDERS: ATTEND Surgery
DX: K22.2 Esophageal obstruction (principal); K21.0 Gastro-esophageal reflux disease with esophagitis; K29.70 Gastritis, unspecified, without bleeding; K29.80 Duodenitis without bleeding; E11.9 Type 2 diabetes mellitus without complications; I25.10 Atherosclerotic heart disease of native coronary artery without angina pectoris; I10 Essential (primary) hypertension; F17.210 Nicotine dependence, cigarettes, uncomplicated; J44.9 Chronic obstructive pulmonary disease, unspecified; E03.9 Hypothyroidism, unspecified; J45.909 Unspecified asthma, uncomplicated; F32.9 Major depressive disorder, single episode, unspecified; M85.80 Other specified disorders of bone density and structure, unspecified site; Z79.01 Long term (current) use of anticoagulants; Z79.899 Other long term (current) drug therapy

== ENCOUNTER 2017-07-11 13:20 | Outpatient (CLI) | payer MEDICARE, MEDICAID ==
[~2017-07-11] VITALS: Ht 160 cm; Wt 71.7 kg
[2017-07-11 13:30] VITALS: BP 113/65
[2017-07-11] MEDS ORDERED: OXYB10TA PO (13:34)
[2017-07-11 14:13] LABS: BASOPHILS % (AUTO) 1 % (0-10); EOSINOPHILS # (AUTO) 0.3 10^3/uL (0.0-0.3); EOSINOPHILS % (AUTO) 4 % (0-10); HEMATOCRIT 39 % (35-52); HEMOGLOBIN 13.4 G/DL (11.5-16.0); LYMPHOCYTES # (AUTO) 2.2 X 10^3 (1.0-4.0); LYMPHOCYTES % (AUTO) 29 % (12-44); MEAN CORPUSCULAR HEMOGLOBIN 30 PG (25-34); MEAN CORPUSCULAR HGB CONC 35 G/DL (32-36); MEAN CORPUSCULAR VOLUME 87 FL (80-99); MEAN PLATELET VOLUME 9.8 FL (7.4-10.4); MONOCYTES # (AUTO) 0.8 X 10^3 (0.0-1.0); MONOCYTES % (AUTO) 11 % (0-12); NEUTROPHILS # (AUTO) 4.1 X 10^3 (1.8-7.8); NEUTROPHILS % (AUTO) 55 % (42-75); PLATELET COUNT 252 10^3/uL (130-400); RED BLOOD COUNT 4.45 10^6/uL (4.35-5.85); RED CELL DISTRIBUTION WIDTH 15.6 % (10.0-14.5); WHITE BLOOD COUNT 7.4 10^3/uL (4.3-11.0)
[2017-07-11 14:13] LABS: BILIRUBIN,URINE NEGATIVE (NEGATIVE); CLARITY,URINE CLEAR; COLOR,URINE YELLOW; GLUCOSE, URINE (UA) NEGATIVE (NEGATIVE); KETONES,URINE NEGATIVE (NEGATIVE); LEUKOCYTE ESTERASE ,URINE 2+ (NEGATIVE); NITRITE,URINE NEGATIVE (NEGATIVE); PH,URINE 6.5 (5-9); PROTEIN,URINE NEGATIVE (NEGATIVE); UROBILINOGEN,URINE NORMAL (NORMAL)
[2017-07-11 14:22] LABS: INR 0.9 (0.8-1.4); PROTHROMBIN TIME PATIENT 12.3 SEC (12.2-14.7)
[2017-07-11 14:31] LABS: ALANINE AMINOTRANSFERASE 24 U/L (0-55); ALKALINE PHOSPHATASE 110 U/L (40-136); BILIRUBIN,TOTAL 0.2 MG/DL (0.1-1.0); BUN/CREATININE RATIO 19; CALCIUM 9.5 MG/DL (8.5-10.1); CARBON DIOXIDE 28 MMOL/L (21-32); CHLORIDE 104 MMOL/L (98-107); CREATININE SERUM 0.64 MG/DL (0.60-1.30); GFR ESTIMATED > 60; GLUCOSE 96 MG/DL (70-105); SODIUM 139 MMOL/L (135-145); TOTAL PROTEIN 6.6 GM/DL (6.4-8.2)
[2017-07-11 15:05] LABS: ERYTHROCYTE SEDIMENTATION RATE 19 MM/HR (0-30)
[2017-07-11 15:12] LABS: BACTERIA,URINE NEGATIVE /HPF; RBC,URINE RARE /HPF
--- NOTE | 2017-07-11 15:19 | Diagnostic Imaging Report ---
PATIENT HISTORY: Preoperative evaluation of cardiac and pulmonary structures prior to administration of anesthesia. Left knee arthroplasty. TECHNIQUE: 2 views of the chest COMPARISON: 02/17/2017 FINDINGS: There are bibasilar airspace opacities. Lung volumes are normal. No pleural effusion or pneumothorax is seen. The cardiomediastinal silhouette appears normal. Fusion hardware is noted at the cervical spine. No acute osseous abnormality is seen. IMPRESSION: Bibasilar airspace opacities, may represent atelectasis. Dictated by: Dictated on workstation # [id number]
[2017-07-11] MEDS ORDERED: ERGO50006 PO (15:30)
[2017-07-11] MEDS ORDERED: PRED10TA22 PO (15:30)
[2017-07-11] MEDS ORDERED: PREG50CA2 PO (15:30)
[2017-07-11] MEDS ORDERED: DEXL60CA PO (15:30)
[2017-07-11] MEDS ORDERED: RANI150T90 PO (15:30)
[2017-07-11] MEDS ORDERED: CODE118S2 PO (15:30)
[2017-07-11] MEDS ORDERED: SERT50TA9 PO (15:30)
[2017-07-11] MEDS ORDERED: NYST1POW4 TOP (15:30)
[2017-07-11] MEDS ORDERED: MIRT45TA5 PO (15:30)
[2017-07-11] MEDS ORDERED: FLUT16SP22 NS (15:30)
[2017-07-11] MEDS ORDERED: SERT100T8 PO (15:30)
[2017-07-11] MEDS ORDERED: ESTR42.52 VG (15:30)
[2017-07-11] MEDS ORDERED: APIX5TAB PO (15:30)
[2017-07-11] MEDS ORDERED: ARIP10TA17 PO (15:30)
[2017-07-11] MEDS ORDERED: BUSP5TAB59 PO (15:30)
[2017-07-11] MEDS ORDERED: HYDR50TA76 PO (15:30)
[2017-07-11] MEDS ORDERED: CETI10TA20 PO (15:30)
[2017-07-11] MEDS ORDERED: LAMO25TA PO (15:30)
[2017-07-11] MEDS ORDERED: COLE625T9 PO (15:30)
[2017-07-11] MEDS ORDERED: RIFA550T PO (15:52)
[2017-07-11] MEDS ORDERED: MUPI22OI2 TP (15:52)
[2017-07-11] MEDS ORDERED: ONDA4TAB8 SL (15:52)
[2017-07-11] MEDS ORDERED: MAGN400T6 PO (15:52)
== END 2017-07-11 14:00 | disposition home or self-care (01) ==
LOC: PREOP 13:20
PROVIDERS: ATTEND Orthopaedic Surgery
DX: Z01.812 Encounter for preprocedural laboratory examination (principal); Z01.811 Encounter for preprocedural respiratory examination; Z01.810 Encounter for preprocedural cardiovascular examination; Z11.2 Encounter for screening for other bacterial diseases; M17.12 Unilateral primary osteoarthritis, left knee; R53.83 Other fatigue
CPT/HCPCS: 36415; 71046; 80053; 81000; 85025; 85610; 85652; 86850; 86900; 86901; 87081; 93005

== ENCOUNTER 2017-07-16 07:05 | Inpatient (IN) | payer MEDICARE, MEDICAID ==
--- NOTE | 2017-07-07 15:41 | HISTORY AND PHYSICAL ---
DATE OF SERVICE: DATE OF ADMISSION: 07/16/2017. This will be for inpatient admission on 07/16/2017 for left total knee arthroplasty. The patient will require inpatient admission due to pain management issues, weakness, gait training as well as comorbidity which includes severe osteoarthritis, coronary artery disease, atrial fibrillation and diabetes mellitus. HISTORY OF PRESENT ILLNESS: The patient is a 61-year-old female with progressively worsening left knee pain. She has undergone treatment with injections, anti-inflammatories and rest. Radiographs revealed complete medial and patellofemoral joint space. She reports progressive worsening symptoms and failure to improve with conservative measures. She has tried rest, activity modifications and multiple injections without relief. REVIEW OF SYSTEMS: No chest pain, no shortness of breath. No dysuria. PAST MEDICAL HISTORY: Diabetes mellitus, cervical disk disease, deep venous thrombosis, osteoporosis, atrial fibrillation, RLS, anxiety, scoliosis cubital tunnel, lumbar stenosis, osteoarthritis. PAST SURGICAL HISTORY: Cardiac ablation, cholecystectomy, thumb hernia, left elbow, right elbow, right wrist and cervical. FAMILY HISTORY: Significant for osteoporosis, hypertension, diabetes, cancer. PRIMARY CARE PROVIDER: [facility]. MEDICATIONS: 1. Hydrocodone. 2. Lomotil. 3. Brintellix. 4. Baclofen. 5. Eliquis. 6. Primidone. 7. Vitamin D. 8. Xifaxan. 9. Ventolin. 10. Spiriva. 11. Fosamax. 12. Protonix. 13. Myrbetriq. 14. Cardia. 15. Toprol. 16. Gabapentin. 17. Hydroxyzine. 18. WelChol. 19. Singulair. 20. Simvastatin. 21. Trazodone. 22. Donepezil. 23. Requip. 24. Namenda. 25. Symbicort. 26. Magnesium. 27. Valium. ALLERGIES: PENICILLIN, IBUPROFEN, IV DYE and TRIPLE ANTIBIOTIC. SOCIAL HISTORY: The patient smokes half a pack per day. Denies alcohol use. PHYSICAL EXAMINATION: GENERAL: The patient is well developed, well-nourished, in no acute distress. HEENT: Normocephalic, atraumatic. Pupils equal, round, reactive to light. Oropharynx is clear. NECK: Supple, no lymphadenopathy. LUNGS: Clear to auscultation bilaterally. HEART: Regular rate and rhythm. ABDOMEN: Soft, nontender, nondistended. EXTREMITIES: The left knee demonstrates a moderate effusion. There is no erythema or warmth. Range of motion 0/2/120. No varus valgus laxity, negative anterior, posterior drawer. She has tenderness along medial femoral condyle and pain with patellar loading. The patient ambulates with an antalgic gait. IMPRESSION: Severe left knee osteoarthritis unresponsive to conservative measures. PLAN: Left total knee arthroplasty. The risks, benefits, options, ramifications and recovery were discussed at length with the patient. She understands and wishes to proceed. Job ID: [id number] DocumentID: [id number] Dictated Date: 07/07/2017 13:32:07 Hog Scraper Date: 07/07/2017 15:06:19 Dictated By: ERIC BROOKE MD
[~2017-07-16] VITALS: Ht 160 cm; Wt 71.7 kg
[~2017-07-16 07:05] MED LIST changes: +ARIP10TA17 PO; +BUSP5TAB59 PO; +CETI10TA20 PO; -CITA20TA7 PO; +CITA20TA9 PO; +CODE118S4 PO; +DEXL60CA PO; +ERGO50006 PO; +ESTR42.52 VG; +FLUT16SP22 NS; +HYDR50TA76 PO; +LAMO25TA PO; +MIRT45TA5 PO; +MUPI22OI2 TP; +NYST1POW4 TOP; +ONDA4TAB8 SL; +PRED10TA22 PO; +PREG50CA2 PO; +RANI150T90 PO; +SERT100T8 PO; +SERT50TA9 PO; +SUMA100T2 PO; +TRAZ-189 PO; -TRAZ-28 PO
[2017-07-16] MEDS ORDERED: CEFUROXIME 1.5 GM (ZINACEF) VIAL ONE (07:07)
[2017-07-16] MEDS ORDERED: NS (IVPB) 100 ML ONE (07:07)
--- OUTSIDE RECORDS SUMMARY | 2017-07-16 07:13 | XMS REPORT | Continuity of Care Document ---
Author Author [employer] Organization [facility] Address Unknown Phone Unavailable Care Team Providers Care Perl Software Engineer Name Role Phone [employer] Unavailable Unavailable Problems Medications Allergies, Adverse Reactions, Alerts Immunizations Results Vital Signs Encounters Location Location Details Encounter Type Encounter Number Reason For Visit Attending Provider ADM Date DC Date Status Source [facility] [id number] Outpatient [id number] . LAB [facility] 01/12/2013 Active [facility] [id number] DENIS FRANCO 09/23/2016 09/23/2016 Active [facility] SPECIMEN [id number] 01/23/2017 01/23/2017 Active [facility] SPECIMEN [id number] CELESTINA NOWAK 01/23/2017 Active [facility] OUTPATIENT [id number] KEYSHA WHEELER 04/10/20172017 Active [facility] OUTPATIENT [id number] CELESTINA NOWAK 05/15/20172017 Active [facility] SPECIMEN [id number] KEYSHA WHEELER 05/20/20172017 Active [facility] OUTPATIENT [id number] KWAME BRADLEY 05/28/20172017 Active [facility] OUTPATIENT [id number] 06/04/2017 Active [facility] OP SURGERY [id number] KWAME BRADLEY 06/13/20172017 Active [facility] O KWAME BRADLEY Active [facility] Procedures Plan of Care Social History Assessment and Plan Family History Advance Directives Functional Status
--- OUTSIDE RECORDS SUMMARY | 2017-07-16 07:14 | XMS REPORT | Clinical Summary ---
Author Author [facility] Organization [facility] Address Unknown Phone Unavailable Care Team Providers Care Supply Service Worker Name Role Phone Apoorva Shane MD [...] in the Health Information Management department at [phone] for further assistance in locating additional records.[facility] Allergies Active Allergy Reactions Severity Noted Date Comments Ibuprofen RASH Medium 06/09/2009 Chkes-Pqhdc-Rtjvuhl-Pramo RASH Medium 01/23/2017 xine Current Medications Prescription [...] mouth Active mg tablet every 8 hours. baclofen (LIORESAL) 20 mg Take 20 mg [...] the lungs daily. Shake well before use. magnesium oxide (MAG-OX) Take 400 mg by [...] Shake bottle ALLERGIC RHINITIS gently before using. nystatin (NYSTOP) 100,000 Apply topically to 30 g 0 07/10/19 Active unit/g topical affected area four times 18 powderIndications: Yeast daily. dermatitis oxybutynin XL (DITROPAN Take 1 tablet by mouth 90 tablet 3 07/11/19 Active XL) 10 mg daily. Do not cut/ crush/ 18 tabletIndications: chew Urinary incontinence, unspecified type trospium(+) (SANCTURA) 20 Take 1 tablet by mouth 180 tablet 3 07/10/19 Discontin mg tablet three times daily before 17 18 ued meals. mirabegron(+) ER Take 1 tablet by mouth 30 tablet 3 03/07/20 (MYRBETRIQ) 50 mg daily for 120 days. 17 18 tabletIndications: Indications: URINARY URGE URINARY URGE INCONTINENCE INCONTINENCE polyethylene glycol 3350 Take 17 g by mouth daily 06/14/19 07/10/19 Discontin (GLYCOLAX; MIRALAX) 17 for 30 days. 18 18 ued gram/dose powder senna/docusate Take 1 tablet by mouth 06/14/19 07/14/19 (SENOKOT-S) 8.6/50 mg daily for 30 days. 18 18 tablet HYDROcodone/acetaminophen Take 1 tablet by mouth 20 tablet 0 06/14/19 07/10/19 Discontin (NORCO) 5/325 mg tablet every 4 hours as needed 18 18 ued for Pain solifenacin(+) (VESICARE) Take 1 tablet by mouth 90 tablet 3 07/05/19 07/10/19 Discontin 10 mg tablet daily. 18 18 ued Active Problems Problem Noted Date Urinary obstruction 05/28/2017 Overview: 61 year old female with a history of a MUS 3 years ago, with significant obstructive symptoms that time that have continued to worsen. She has objective evidence of obstruction on recent urodynamics, pain and straining with voiding, urgency and urge incontinence, and recurrent UTIs. UDS: retention; high voiding pressures; no DO 06/13/17 urethrolysis, sling excision Now, with resolution of obstruction, yet urgency and UUI L ast Assessment & Plan: - q3h voiding - estrace tiw - cont oxybutynin xL 10mg - rtc 2months Urge incontinence of urine 06/13/2015 Overview: 61 [...] Heartburn 01/19/2015 COPD (chronic obstructive pulmonary disease) ([facility]) 05/18/2012 Diabetes mellitus ([facility]) 05/18/2012 TIA (transient ischemic attack) 05/18/2012 Diarrhea 05/18/2012 Encounters Date Type Specialty Care Team Description 07/10/2017 Telephone UrologBalbina Shoemaker MD General Question 07/09/2017 Office Visit Urology Balbina Garcia MD Voiding dysfunction (Primary Dx); Yeast dermatitis; Urinary obstruction 07/09/2017 Telephone UrologBalbina Shoemaker MD General Question 07/08/2017 Telephone Urology Balbina Garcia MD Other 07/07/2017 Telephone UrologBalbina Shoemaker MD Medication Follow- up 07/04/2017 Telephone UrologBalbina Sohemaker MD General Question 07/03/2017 Telephone Urology Balbina Garcia MD Medication Question 07/01/2017 Refill Uro Vocational Adviser Rain Tariq MD Urinary incontinence in female 06/16/2017 Telephone Balbina Burns MD General Question 06/15/2017 Pharmacy Visit 06/13/2017 Hospital Balbina Garcia MD Urinary obstruction Encounter 06/13/2017 Telephone Urology Balbina Garcia MD Medication Question 06/13/2017 Pharmacy Visit 06/13/2017 Procedure Pass 06/13/2017 Surgery Balbina Garcia MD URETHROLYSIS, INCISION OF URETHRAL SLING, CYSTOSCOPY 06/10/2017 Refill Uro Vocational Adviser Gilles Ness MD 06/04/2017 PAC Office Anesthesiology Balbina Garcia MD Atrial fibrillation, Visit unspecified type ([facility]) (Primary Dx); Hypertension, unspecified type 06/04/2017 Anesthesia Sandra Lakhani, PRODUCTION MANUFACTURING WORKER Event 05/30/2017 Telephone UrologBalbina Shoemaker MD General Question 05/30/2017 Telephone Nephrology Alvaro [...] MD Urinary obstruction (Primary Dx); Bleeding tendency ([facility]) 05/23/2017 Telephone Uro Vocational Adviser Rain Tariq MD Results 05/20/2017 Hospital Lab Rain Tariq MD Urinary tract infection, Encounter site not specified 05/20/2017 Office Visit Uro Vocational Adviser Rain Tariq MD Possible urinary tract infection (Primary Dx) 05/20/2017 Procedure visit Urology Alvaro Duval MD Urge incontinence Harika Hsu MD (Primary Dx) 05/20/2017 Clinical Urology Urge incontinence Support (Primary Dx) 05/16/2017 Telephone Nephrology Alvaro Duval MD Results 05/15/2017 Hospital Lab Alvaro Duval MD Hematuria, unspecified Encounter 05/15/2017 Office Visit Nephrology Alvaro Duval MD Hematuria , unspecified type (Primary Dx); Hyponatremia; Hypotension, unspecified hypotension type from Last 3 Months Family History Medical [...] Vital Sign Reading Time Taken Blood Pressure 107/70 07/09/2017 9:11 AM CDT Pulse 95 07/09/2017 9:11 AM CDT Temperature 36.4 C (97.5 F) 06/13/2017 10:15 AM SILK BRUSHER Respiratory Rate 20 10/25/2015 10:12 AM CDT Oxygen Saturation 94% 06/13/2017 10:15 AM SILK BRUSHER Inhaled Oxygen - - Concentration Weight 73.9 kg (163 lb) 07/09/2017 9:11 AM CDT Height 165.1 cm (5' 5") 07/09/2017 9:11 AM CDT Body Mass Index 27.12 07/09/2017 9:11 AM CDT Plan of Treatment Health Maintenance [...] Procedure Name Priority Date/Time Associated Diagnosis Comments ECG-SCAN 06/30/2017 Results for this 3:37 PM CDT procedure are in the results section. ECG-SCAN 06/16/2017 Results for this 11:54 AM CDT procedure are in the results section. ECG-SCAN 06/16/2017 Results for this 11:54 AM CDT procedure are in the results section. URETHROLYSIS, INCISION OF 06/13/2017 Urinary obstruction URETHRAL SLING, 7:15 AM SILK BRUSHER CYSTOSCOPY CA CYSTOURETHROSCOPY Routine 05/20/2017 Urge incontinence Results for this 10:00 AM SILK BRUSHER procedure are in the results section. URODYNAMIC STUDIES Routine 05/20/2017 Urge incontinence 12:00 AM SILK BRUSHER from Last 3 Months Results * POC URINE DIPSTICK MANUAL READ (07/09/2017) Only the most recent of 4 results within the time period is included. Component Value Ref Range Urine Glucose POC neg] Urine Bilirubin POC neg Urine Ketone POC neg Urine Specific [place] 1.015 POC Urine Blood POC neg Urine PH POC 6.0 Urine Protein POC neg Urine Urobilinogen POC 0.2 Urine Nitrite POC neg Urine Leukocytes POC neg Color,UA yel Turbidity,UA clear Specimen Performing Laboratory Urine IN CLINIC * ECG-SCAN (06/30/2017 3:37 PM) Narrative Ordered by an unspecified provider. * ECG-SCAN (06/16/2017 11:54 AM) Narrative Ordered by an unspecified provider. * ECG-SCAN (06/16/2017 11:54 AM) Narrative Ordered by an unspecified provider. * POC GLUCOSE (06/13/2017 9:05 AM) Only the most recent of 2 results within the time period is included. Component Value Ref Range Glucose, POC 98 70 - 100 MG/DL Specimen Performing Laboratory [facility] [address] [place] [address] * SURGICAL PATHOLOGY (06/13/2017 9:04 AM) Component Value Ref Range PATHOLOGY REPORT [facility] [email or web address] Department of Pathology and Laboratory Medicine [address] [place] [address] Surgical Pathology Office:[phone]:[phone] SURGICAL PATHOLOGY REPORT NAME: NARA HUIZAR JO SURG PATH #: [id number] MR #: [id number] SPECIMEN CLASS: SR BILLING #: [id number] ALT ID #:LOCATION: ALICE DATE OF PROCEDURE: 06/13/2017 AGE:61 SEX: F DATE RECEIVED: 06/13/2017 : 1955TIME RECEIVED:09:04 PHYSICIAN: Balbina Garcia DATE OF REPORT: 06/16/2017 COPY TO:DATE OF PRINTIN06/16/2017 ################################################## ###################### Final Diagnosis: A. Soft tissue, "sling mesh", excision: - Benign fibrous tissue with reactive changes - White plastic mesh fibers seen grossly Attestation: By this signature, I attest that I have personally formulated the final interpretation expressed in this report and that the above diagnosis is based upon my examination of the slides and/or other material indicated in this report. +++ +++ 06/13/2017 ################################################## ###################### Material Received: A: sling mesh History: 61-year-old female with a history of urinary obstruction. Gross Description: A. Received in formalin labeled with the patient's name and "sling mesh" is a 1.4 x 1.2 x 0.3 cm aggregate of mcqueen-pink tissue fragments with clear white plastic mesh fibers. The soft tissue is removed and security systems sales representative sections are submitted in cassette A1. (eef) 06/13/2017 Specimen Performing Laboratory LAB RESULTS * PTT (APTT) (05/28/2017 10:02 AM) Component Value Ref Range APTT 29.9 21.0 - 39.0 SEC Specimen Performing Laboratory [facility] [address] [place] [address] * PROTIME INR (PT) (05/28/2017 10:02 AM) Component Value Ref Range INR 1.0 0.8 - 1.2 Specimen Performing Laboratory [facility] [address] [place] [address] * BASIC METABOLIC PANEL (05/28/2017 10:02 AM) [...] not validated for use in drug dosing adjustments.Continue to use estimated creatinine clearance per dosing reference text.Please contact the Clinical Pharmacist for questions. eGFR >60 >60 mL/min Comment: The eGFR is not validated for use in drug dosing adjustments.Continue to use estimated creatinine clearance per dosing reference text.Please contact the Clinical Pharmacist for questions. Specimen Performing Laboratory Blood [facility] [address] [place] [address] * SODIUM-URINE RANDOM (05/28/2017 9:30 AM) Only the most recent of 2 results within the time period is included. Component Value Ref Range Sodium, Random 35 MMOL/L Specimen Performing Laboratory Urine [facility] [address] [place] [address] * OSMOLALITY-URINE RANDOM (05/28/2017 9:30 AM) Only the most recent of 2 results within the time period is included. Component Value Ref Range Osmolality-Urine 193 50 - 1,400 MOS/KG Specimen Performing Laboratory Urine [facility] [address] [place] [address] * CULTURE-URINE W/SENSITIVITY (05/28/2017 9:30 AM) Only the most recent of 2 results within the time period is included. Component Value Ref Range Battery Name URINE CULTURE Specimen Description URINE, CLEAN CATCH Special Requests NONE Culture NO GROWTH Report Status FINAL 05/29/2017 Specimen Performing Laboratory Urine - Urine,Clean Catch [facility] [address] [place] [address] * CYSTOSCOPY (05/20/2017 10:00 AM) Specimen Performing [...] Performing Laboratory Urine [facility] [address] [place] [address] * CBC AND DIFF (05/15/2017 11:00 AM) [...] Performing Laboratory Blood [facility] [address] [place] [address] * MAGNESIUM (05/15/2017 11:00 AM) Component Value Ref Range Magnesium 1.7 1.6 - 2.6 mg/dL Specimen Performing Laboratory Blood [facility] [address] [place] [address] * COMPREHENSIVE METABOLIC PANEL (05/15/2017 11:00 AM) [...] not validated for use in drug dosing adjustments.Continue to use estimated creatinine clearance per dosing reference text.Please contact the Clinical Pharmacist for questions. eGFR >60 >60 mL/min Comment: The eGFR is not validated for use in drug dosing adjustments.Continue to use estimated creatinine clearance per dosing reference text.Please contact the Clinical Pharmacist for questions. Specimen Performing Laboratory Blood [facility] [address] [place] [address] * POC URINE DIPSTICK AUTO READ (05/15/2017) Component Value Ref Range Urine Glucose POC norm Urine Bilirubin POC neg Urine Ketone POC neg Urine Specific [place] 1.000 POC Urine Blood POC 50 Urine PH POC 6.5 Urine Protein POC neg Urine Urobilinogen POC norm Urine Nitrite POC neg Urine Leukocytes POC neg Color,UA Turbidity,UA Specimen Performing Laboratory Urine IN CLINIC from Last 3 Months
--- OUTSIDE RECORDS SUMMARY | 2017-07-16 07:14 | XMS REPORT | Encounter Summary ---
Author Author [facility] Organization [facility] Address Unknown Phone Unavailable Care Team Providers Care Business Education Professor Name Role Phone Apoorva Shane MD Unavailable Edgardo Torres MD Unavailable Amanda Bhandari Unavailable Montana Villasenor MD Unavailable Gilles Ness MD Unavailable Rain Tariq MD Unavailable Harika Hsu MD Unavailable Nayana Mccarty RN Unavailable Unavailable Symone Lee Unavailable Unavailable Sukumar Mondragon APRN PCP Reason for Visit * Reason Comments General Question Encounter Details Date Type Department Care Team Description 07/09/2017 Telephone [facility] Balbina Garcia MD General Question Physicians - Urology [address] [facility] 2ND FLOOR POD A [place] [address] [facility] [place] [address] OFFICE BLDG [phone] [place] [address] Social History Tobacco Use Types Packs/Day Years Used Date Former Smoker Cigarettes 0.25 46 Smokeless Tobacco: Never Used Alcohol Use Drinks/Week oz/Week Comments No 0 Standard 0.0 drinks or equivalent Sex Assigned at Date Recorded Not on file as of this encounter Miscellaneous Notes * Telephone Encounter - Pawel Dacosta MA - 07/09/2017 11:[address] Mondragon would like Dr. Robertson to call him and tell him that she would like her back on MS medication. Forwarding to Dr. Sexton for f/u [phone] in this encounter Plan of Treatment Not on fileas of this encounter Visit Diagnoses Not on filein this encounter
--- OUTSIDE RECORDS SUMMARY | 2017-07-16 07:14 | XMS REPORT | Encounter Summary ---
Author Author [facility] Organization [facility] Address Unknown Phone Unavailable Care Team Providers Care Bowling Ball Grader Name Role Phone Apoorva Shane MD Unavailable Edgardo Torres MD Unavailable Amanda Bhandari Unavailable Montana Villasenor MD Unavailable Gilles Ness MD Unavailable Rain Tariq MD Unavailable Harika Hsu MD Unavailable Nayana Mccarty RN Unavailable Unavailable Symone Lee Unavailable Unavailable Sukumar Mondragon APRN PCP Reason for Visit * Reason Comments General Question Encounter Details Date Type Department Care Team Description 07/10/2017 Telephone [facility] Balbina Garcia MD General Question Physicians - Urology [address] [facility] 2ND FLOOR POD A [place] [address] [facility] [place] [address] OFFICE BLDG [phone] [place] [address] Social History Tobacco Use Types Packs/Day Years Used Date Former Smoker Cigarettes 0.25 46 Smokeless Tobacco: Never Used Alcohol Use Drinks/Week oz/Week Comments No 0 Standard 0.0 drinks or equivalent Sex Assigned at Date Recorded Not on file as of this encounter Miscellaneous Notes * Telephone Encounter - Joleen Hsu LPN - 07/10/2017 3:23 PM CDT Spoke to pt. Informed her that PA for Vesicare was already denied by insurance, and that at her apt yesterday Jose recommended she take oxybutynin. She states she forgot that. Pt states that Dr. Mondragon would like to speak with Jose about her saying to restart her MS medication. Explained to pt that Jose wants to go based on Dr. Mondragon's recommendations on whether or not to restart MS medication. Pt verbalized understanding. Denied any additional questions at this time. * Telephone Encounter - Stephania Hanks MA - 07/10/2017 2:22 PM CDT 07/10/2017 at 02:22 pm, Pt called in stating she is needing if Dr. Garcia has approved the PA request for the Vesicare 10mg? Explained normally it is her health Ins that needs to approve the PA request not Dr. Garcia. Explained I was going to route a a message to Dr. Garcia's nurse Joleen asking her to please reach out to her to give her an update on the PA request. Pt voiced understanding. ( Routed message to Joleen to advise). in this encounter Plan of Treatment Not on fileas of this encounter Visit Diagnoses Diagnosis Urinary incontinence, unspecified type - Primary
--- OUTSIDE RECORDS SUMMARY | 2017-07-16 07:15 | XMS REPORT | Encounter Summary ---
Author Author [facility] Organization [facility] Address Unknown Phone Unavailable Care Team Providers Care Equipment Washer Name Role Phone Apoorva Shane MD Unavailable Edgardo Torres MD Unavailable Amanda Bhandari Unavailable Montana Villasenor MD Unavailable Gilles Ness MD Unavailable Rain Tariq MD Unavailable Harika Hsu MD Unavailable Nayana Mccarty RN Unavailable Unavailable Symone Lee Unavailable Unavailable Sukumar Mondragon APRN PCP Reason for Visit * Reason Comments Medication Follow-up Encounter Details Date Type Department Care Team Description 07/07/2017 Telephone [facility] Balbina Garcia MD Medication Follow-up Physicians - Urology [address] [facility] 2ND FLOOR POD A [place] [address] [facility] MED [address] OFFICE BLDG [phone] [address] Social History Tobacco Use Types Packs/Day Years Used Date Former Smoker Cigarettes 0.25 46 Smokeless Tobacco: Never Used Alcohol Use Drinks/Week oz/Week Comments No 0 Standard 0.0 drinks or equivalent Sex Assigned at Date Recorded Not on file as of this encounter Miscellaneous Notes * Telephone Encounter - Ivonne Leung - 07/07/2017 1:30 PM CDT Pt called stating her pharmacy needs a PA to fill new medication. Routing msg to nurse Joleen. in this encounter Plan of Treatment Not on fileas of this encounter Visit Diagnoses Not on filein this encounter
--- OUTSIDE RECORDS SUMMARY | 2017-07-16 07:15 | XMS REPORT | Encounter Summary ---
Author Author [facility] Organization [facility] Address Unknown Phone Unavailable Care Team Providers Care Blender Snuff Name Role Phone Apoorva Shane MD Unavailable Edgardo Torres MD Unavailable Amanda Bhandari Unavailable Montana Villasenor MD Unavailable Gilles Ness MD Unavailable Rain Tariq MD Unavailable Harika Hsu MD Unavailable Nayana Mccarty RN Unavailable Unavailable Symone Lee Unavailable Unavailable Sukumar Mondragon APRN PCP Encounter Details Date Type Department Care Team Description 06/13/2017 Procedure Pass Main Operating Room [address] [place] [address] Social History Tobacco Use Types [...]
--- OUTSIDE RECORDS SUMMARY | 2017-07-16 07:15 | XMS REPORT | Encounter Summary ---
Author Author [facility] Organization [facility] Address Unknown Phone Unavailable Care Team Providers Care Director Of Social Work Name Role Phone Apoorva Shane MD Unavailable Edgardo Torres MD Unavailable Amanda Bhandari Unavailable Montana Villasenor MD Unavailable Gilles Ness MD Unavailable Rain Tariq MD Unavailable Harika Hsu MD Unavailable Nayana Mccarty RN Unavailable Unavailable Symone Lee Unavailable Unavailable Sukumar Mondragon APRN PCP Reason for Visit * Reason Comments Urinary Incontinence Encounter Details Date Type Department Care Team Description 07/09/2017 Office Visit [facility] Balbina Garcia MD Voiding dysfunction Physicians - Urology [address] (Primary Dx); 2ND FLOOR POD A [place] [address] Yeast dermatitis; [address] [place] [address] Urinary obstruction OFFICE BLDG [phone] [place] [address] Social History Tobacco Use Types [...] Pulse 95 07/09/2017 9:11 AM CDT Temperature - - Respiratory Rate - - Oxygen Saturation - - Inhaled Oxygen - - Concentration Weight 73.9 kg (163 lb) 07/09/2017 9:11 AM CDT Height 165.1 cm (5' 5") 07/09/2017 9:11 AM CDT Body Mass Index 27.12 07/09/2017 9:11 AM CDT in this encounter Progress Notes * Joleen Hsu LPN - 07/09/2017 9:15 AM CDT PVR 149 ml.PVR 120 ml. * Balbina Garcia MD - 07/09/2017 9:15 AM CDT Formatting of this note may be different from the original. Subjective: History of Present Illness Nara Huizar is a 61 y.o. female. Nara Huizar is a 61 year old [...] a small amount of urine with with urge and frequency q1h.She describes her primary symptoms as having to [...] high voiding pressure , but no leakage. She underwent a urethrolysis and sling excision on 06/13/17 and presents for follow-up. She is no longer straining to void and only voids q4h, yet is bothered by urgency and UUI. She was restarted on oxybutynin xl 10mg one day ago. She additionally reports upcoming appointment with her neurologist and plans to restart MS meds. Review of Systems Constitutional: Positive for activity change, appetite change, fatigue and unexpected weight change. Eyes: Positive for visual disturbance. Respiratory: Positive for cough and shortness of breath. Cardiovascular: Positive for palpitations. Gastrointestinal: Positive for diarrhea. Genitourinary: Positive for difficulty urinating, enuresis and hematuria. Musculoskeletal: Positive for arthralgias, back pain, gait problem and myalgias. Neurological: Positive for dizziness, weakness, numbness and headaches. Hematological: Bruises/bleeds easily. Psychiatric/Behavioral: Positive for decreased concentration and dysphoric mood. The patient is nervous/anxious. Objective: albuterol (VENTOLIN HFA) 90 mcg/actuation inhaler [...] tablet Take 25 mg by mouth daily. montelukast (SINGULAIR) 10 mg tablet Take 10 mg by mouth at bedtime daily. MULTIVIT WITH CALCIUM,IRON,MIN (WOMEN'S MULTIPLE VITAMINS PO) Take 1 tablet by mouth daily. nitroglycerin (NITROSTAT) 0.[address] 0.4 mg under tongue every 5 minutes as needed for Chest Pain. nystatin (NYSTOP) 100,000 unit/g topical powder Apply topically to affected area four times daily. other medication 1 Dose. 5L/NC home oxygen oxybutynin XL (DITROPAN XL) 10 mg tablet Take 1 tablet by mouth daily. Do not cut/ crush/ chew pantoprazole DR (PROTONIX) 40 mg tablet Take 80 mg by mouth daily. primidone (MYSOLINE) 250 mg tablet Take 250 mg by mouth every 8 hours. rifAXIMin (XIFAXAN) 550 mg tablet Take 550 mg by mouth every 8 hours. ropinirole (REQUIP) 2 mg tablet Take 2 mg by mouth At Bedtime Daily. senna/docusate (SENOKOT-S) 8.6/50 mg tablet Take 1 tablet by mouth daily for 30 days. simvastatin (ZOCOR) 20 mg tablet Take 20 mg by mouth At Bedtime Daily. tiotropium (SPIRIVA) 18 mcg capsule for inhaler Inhale 18 mcg by mouth daily. traZODone (DESYREL) 150 mg tablet Take 150 mg by mouth at bedtime daily. Vitals: 07/09/17 0911 BP: 107/70 Pulse: 95 Weight: 73.9 kg (163 lb) Height: 165.1 cm (65") Body mass index is 27.12 kg/m. Physical Exam Pvr#1: 117mL, pvr#2: 149mL Assessment and Plan: Problem Urinary Obstruction 61 year old female with a history [...] resolution of obstruction, yet urgency and UUI Urinary obstruction - q3h voiding - estrace tiw - cont oxybutynin xL 10mg - rtc 2months in this encounter Miscellaneous Notes * Assessment & Plan Note - Balbina Garcia MD - 07/13/2017 8:55 PM CDT Associated Problem(s): Urinary obstruction - q3h voiding - estrace tiw - cont oxybutynin xL 10mg - rtc 2months in this encounter Plan of Treatment Not on fileas of this encounter Results * POC URINE DIPSTICK MANUAL READ (07/09/2017) Component Value Ref Range Urine Glucose POC neg] Urine Bilirubin POC neg Urine Ketone POC neg Urine Specific [place] 1.015 POC Urine Blood POC neg Urine PH POC 6.0 Urine Protein POC neg Urine Urobilinogen POC 0.2 Urine Nitrite POC neg Urine Leukocytes POC neg Color,UA yel Turbidity,UA clear Specimen Performing Laboratory Urine IN CLINIC in this encounter Visit Diagnoses Diagnosis Voiding dysfunction - Primary Unspecified disorder of urethra and urinary tract Yeast dermatitis Candidiasis of skin and nails Urinary obstruction Urinary obstruction, unspecified
--- OUTSIDE RECORDS SUMMARY | 2017-07-16 07:15 | XMS REPORT | Encounter Summary ---
Author Author [facility] Organization [facility] Address Unknown Phone Unavailable Care Team Providers Care Tissue Packer Name Role Phone Apoorva Shane MD Unavailable Edgardo Torres MD Unavailable Amanda Bhandari Unavailable Montana Villasenor MD Unavailable Gilles Ness MD Unavailable Rain Tariq MD Unavailable Harika Hsu MD Unavailable Nayana Mccarty RN Unavailable Unavailable Symone Lee Unavailable Unavailable Sukumar Mondragon APRN PCP Encounter Details Date Type Department Care Team Description 06/15/2017 Pharmacy Visit [facility] [address] [place] [address] Social History Tobacco Use Types [...]
--- OUTSIDE RECORDS SUMMARY | 2017-07-16 07:15 | XMS REPORT | Encounter Summary ---
Author Author [facility] Organization [facility] Address Unknown Phone Unavailable Care Team Providers Care District Administrator Name Role Phone Apoorva Shane MD Unavailable Edgardo Torres MD Unavailable Amanda Bhandari Unavailable Montana Villasenor MD Unavailable Gilles Ness MD Unavailable Rain Tariq MD Unavailable Harika Hsu MD Unavailable Nayana Mccarty RN Unavailable Unavailable Symone Lee Unavailable Unavailable Sukumar Mondragon APRN PCP Reason for Visit * Reason Comments General Question Encounter Details Date Type Department Care Team Description 07/04/2017 Telephone [facility] Balbina Garcia MD General Question Physicians - Urology [address] [facility] [address]ND FLOOR POD [address] [place] [address] [facility] [place] [address] OFFICE BLDG [phone] [place] [address] Social History Tobacco Use Types Packs/Day Years Used Date Former Smoker Cigarettes 0.25 46 Smokeless Tobacco: Never Used Alcohol Use Drinks/Week oz/Week Comments No 0 Standard 0.0 drinks or equivalent Sex Assigned at Date Recorded Not on file as of this encounter Miscellaneous Notes * Telephone Encounter - Joleen Hsu LPN - 07/04/2017 12:24 PM CDT Spoke with pt. She states she is taking the trospium without any difference. Offered to change the medication. Pt did not want mirabegron as it did not help in the past. Was amendable to Vesicare and states she will try it. Pt denied any additional questions at this time. * Telephone Encounter - Pawel Dacosta MA - 07/04/2017 9:40 AM CDT Pt called in and said she keeps urinating on herself even though she doesn't feel like she has to urinate. Would like a medication to stop this called in today so she will have it for the weekend. in this encounter Plan of Treatment Not on fileas of this encounter Visit Diagnoses Not on filein this encounter
--- OUTSIDE RECORDS SUMMARY | 2017-07-16 07:15 | XMS REPORT | Encounter Summary ---
Author Author [facility] Organization [facility] Address Unknown Phone Unavailable Care Team Providers Care Benzene Still Utility Operator Name Role Phone Apoorva Shane MD Unavailable Edgardo Torres MD Unavailable Amanda Bhandari Unavailable Montana Villasenor MD Unavailable Gilles Ness MD Unavailable Rain Tariq MD Unavailable Harika Hsu MD Unavailable Nayana Mccarty RN Unavailable Unavailable Symone Lee Unavailable Unavailable Sukumar Mondragon APRN PCP Reason for Visit * Reason Comments Medication Question Encounter Details Date Type Department Care Team Description 06/13/2017 Telephone [facility] Balbina Garcia MD Medication Question Physicians - Urology [address] [facility] [address]ND FLOOR POD [address] [place] [address] [facility] [place] [address] [address]ICE [address] [phone] [place] [address] Social History Tobacco Use Types Packs/Day Years Used Date Former Smoker Cigarettes 0.25 46 Smokeless Tobacco: Never Used Alcohol Use Drinks/Week oz/Week Comments No 0 Standard 0.0 drinks or equivalent Sex Assigned at Date Recorded Not on file as of this encounter Miscellaneous Notes * Telephone Encounter - Pawel Dacosta MA - 06/13/2017 2:21 PM ROLLER STAINER Patient called in saying that she was discharged and is now home from surgery and saw she has two new medications on her AVS. She did not know whether or not she was to be picking those up from her pharmacy or not. I spoke with sophie who sent them to [facility] in [place] for her. She verbalized understanding and thanked me for my call. in this encounter Plan of Treatment Not on fileas of this encounter Visit Diagnoses Not on filein this encounter
--- OUTSIDE RECORDS SUMMARY | 2017-07-16 07:15 | XMS REPORT | Encounter Summary ---
Author Author [facility] Organization [facility] Address Unknown Phone Unavailable Care Team Providers Care Environmental Engineering Manager Name Role Phone Apoorva Shane MD Unavailable Edgardo Torres MD Unavailable Amanda Bhandari Unavailable Montana Villasenor MD Unavailable Gilles Ness MD Unavailable Rain Tariq MD Unavailable Harika Hsu MD Unavailable Nayana Mccarty RN Unavailable Unavailable Symone Lee Unavailable Unavailable Sukumar Mondragon APRN PCP Encounter Details Date Type Department Care Team Description 06/13/[address] [facility] [address] [place] [address] Social History Tobacco Use Types [...]
--- OUTSIDE RECORDS SUMMARY | 2017-07-16 07:15 | XMS REPORT | Encounter Summary ---
Author Author [facility] Organization [facility] Address Unknown Phone Unavailable Care Team Providers Care Diamond Wheel Molder Name Role Phone Apoorva Shane MD Unavailable Edgardo Torres MD Unavailable Amanda Bhandari Unavailable Montana Villasenor MD Unavailable Gilles Ness MD Unavailable Rain Tariq MD Unavailable Harika Hsu MD Unavailable Nayana Mccarty RN Unavailable Unavailable Symone Lee Unavailable Unavailable Sukumar Mondraogn APRN PCP Reason for Visit * Reason Comments Other Encounter Details Date Type Department Care Team Description 07/08/2017 Telephone [facility] Balbina Garcia MD Other Physicians - Urology [address] [facility] [address]ND FLOOR POD [address] [place] [address] [facility] [place] [address] OFFICE BLDG [phone] [place] [address] Social History Tobacco Use Types Packs/Day Years Used Date Former Smoker Cigarettes 0.25 46 Smokeless Tobacco: Never Used Alcohol Use Drinks/Week oz/Week Comments No 0 Standard 0.0 drinks or equivalent Sex Assigned at Date Recorded Not on file as of this encounter Miscellaneous Notes * Telephone Encounter - Baltazar Alfred LPN - 07/08/2017 11:22 AM CDT Pt called in stating she is wanting to know status of Vesicare PA. Informed patient I would send message to Joleen, she would get back to her as soon as she can. in this encounter Plan of Treatment Not on fileas of this encounter Visit Diagnoses Not on filein this encounter
--- OUTSIDE RECORDS SUMMARY | 2017-07-16 07:15 | XMS REPORT | Encounter Summary ---
Author Author [facility] Organization [facility] Address Unknown Phone Unavailable Care Team Providers Care Dry Mill Worker Name Role Phone Apoorva Shane MD Unavailable Edgardo Torres MD Unavailable Amanda Bhandari Unavailable Montana Villasenor MD Unavailable Gilles Ness MD Unavailable Rain Tariq MD Unavailable Harika Hsu MD Unavailable Nayana Mccarty RN Unavailable Unavailable Symone Lee Unavailable Unavailable Sukumar Mondragon APRN PCP Reason for Visit * Reason Comments Medication Question Encounter Details Date Type Department Care Team Description 07/03/2017 Telephone [facility] Balbina Garcia MD Medication Question Physicians - Urology [address] [facility] [address] FLOOR POD [address] [place] [address] [facility] [place] [address] OFFICE [address] [phone] [place] [address] Social History Tobacco Use Types Packs/Day Years Used Date Former Smoker Cigarettes 0.25 46 Smokeless Tobacco: Never Used Alcohol Use Drinks/Week oz/Week Comments No 0 Standard 0.0 drinks or equivalent Sex Assigned at Date Recorded Not on file as of this encounter Miscellaneous Notes * Telephone Encounter - Madhuri Larkin LPN - 07/03/2017 3:35 PM CDT Patient called. Wetting pants all the time."i want RX to stop". Requesting call back from the doctor or her nurse. in this encounter Plan of Treatment Not on fileas of this encounter Visit Diagnoses Not on filein this encounter
--- OUTSIDE RECORDS SUMMARY | 2017-07-16 07:15 | XMS REPORT | Encounter Summary ---
Author Author [facility] Organization [facility] Address Unknown Phone Unavailable Care Team Providers Care Dining Host Name Role Phone Apoorva Shane MD Unavailable Edgardo Torres MD Unavailable Amanda Bhandari Unavailable Montana Villasenor MD Unavailable Gilles Ness MD Unavailable Rain Tariq MD Unavailable Harika Hsu MD Unavailable Nayana Mccarty RN Unavailable Unavailable Symone Lee Unavailable Unavailable Sukumar Mondragon APRN PCP Reason for Visit * Reason Comments General Question Encounter Details Date Type Department Care Team Description 06/16/2017 Telephone [facility] Balbina Garcia MD General Question Physicians - Urology [address] [facility] [address]ND FLOOR POD [address] [place] [address] [facility] [place] [address] OFFICE BLDG [phone] [place] [address] Social History Tobacco Use Types Packs/Day Years Used Date Former Smoker Cigarettes 0.25 46 Smokeless Tobacco: Never Used Alcohol Use Drinks/Week oz/Week Comments No 0 Standard 0.0 drinks or equivalent Sex Assigned at Date Recorded Not on file as of this encounter Miscellaneous Notes * Telephone Encounter - Baltazar Alfred LPN - 06/16/2017 1:10 PM CDT States she wants to talk to nurse about when she needs to come in regarding her surgery. in this encounter Plan of Treatment Not on fileas of this encounter Visit Diagnoses Not on filein this encounter
--- OUTSIDE RECORDS SUMMARY | 2017-07-16 07:15 | XMS REPORT | Encounter Summary ---
Author Author [facility] Organization [facility] Address Unknown Phone Unavailable Care Team Providers Care Pigeon Fancier Name Role Phone Apoorva Shane MD Unavailable Edgardo Torres MD Unavailable Amanda Bhandari Unavailable Montana Villasenor MD Unavailable Gilles Ness MD Unavailable Rain Tariq MD Unavailable Harika Hsu MD Unavailable Nayana Mccarty RN Unavailable Unavailable Symone Lee Unavailable Unavailable Sukumar Mondragon APRN PCP Reason for Visit * Reason Comments Medication Refill Encounter Details Date Type Department Care Team Description 07/01/2017 Refill [facility] Rain Tariq MD Urinary incontinence in Physicians - [facility] [address] [facility] [address] [facility] [place] [address] OFFICE BLDG [phone] [place] [address] Social History Tobacco Use Types Packs/Day Years Used Date Former Smoker Cigarettes 0.25 46 Smokeless Tobacco: Never Used Alcohol Use Drinks/Week oz/Week Comments No 0 Standard 0.0 drinks or equivalent Sex Assigned at Date Recorded Not on file as of this encounter Plan of Treatment Not on fileas of this encounter Visit Diagnoses Diagnosis Urinary incontinence in female Unspecified urinary incontinence
--- OUTSIDE RECORDS SUMMARY | 2017-07-16 07:16 | XMS REPORT | Encounter Summary ---
Author Author [facility] Organization [facility] Address Unknown Phone Unavailable Care Team Providers Care Morning Nanny Name Role Phone Apoorva Shane MD Unavailable Edgardo Torres MD Unavailable Amanda Bhandari Unavailable Montana Villasenor MD Unavailable Gilles Ness MD Unavailable Rain Tariq MD Unavailable Harika Hsu MD Unavailable Nayana Mccarty RN Unavailable Unavailable Symone Lee Unavailable Unavailable Sukumar Mondragon APRN PCP Reason for Visit * Reason Comments Results Encounter Details Date Type Department Care Team Description 05/30/2017 Telephone [facility] Alvaro Duval MD Results Physicians - Internal [address] [facility] Medicine [place] [address] [place] [address] [address] [facility] [phone] [place] [address] Social History Tobacco Use Types Packs/Day Years Used Date Former Smoker Cigarettes 40 Quit: 05/29/2015 Smokeless Tobacco: Never Used Alcohol Use Drinks/Week oz/Week Comments No 0 Standard 0.0 drinks or equivalent Sex Assigned at Date Recorded Not on file as of this encounter Miscellaneous Notes * Telephone Encounter - Rae Haro RN - 05/30/2017 10:38 AM PARACHUTE INSPECTOR Ms. Huizar notified of below results. BMP, urine osmo and urine sodium lab orders faxed to [facility] in [place] (fax [phone], office ) per pt request. * Telephone Encounter - Rae Haro RN - 05/30/2017 10:29 AM PARACHUTE INSPECTOR 1028: Lvm to return call to clinic. * Telephone Encounter - Rae Haro RN - 05/30/2017 10:28 AM PARACHUTE INSPECTOR ----- Message from Alvaro Duval MD sent at 05/30/2017 10:11 AM PARACHUTE INSPECTOR ----- Miracle I looked at the labs [...]
--- OUTSIDE RECORDS SUMMARY | 2017-07-16 07:16 | XMS REPORT | Encounter Summary ---
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 Role Phone Apoorva Shane MD Unavailable [...] Contact Diagnoses Urinary obstruction unknown P rocedures ND RMVL/REVJ SLING STRESS INCONTINENCE REVISION/REMOVAL VAGINAL SLING Encounter Details Date Type Department Care Team Description 06/13/2017 Hospital Main Operating Room Balbina Garcia MD Urinary obstruction Encounter [address] [facility] [address] [place] [address] [address] [place] [address] Social History Tobacco Use Types Packs/Day Years Used Date Former Smoker Cigarettes 0.25 46 Smokeless Tobacco: Never Used Alcohol Use Drinks/Week oz/Week Comments No 0 Standard 0.0 drinks or equivalent Sex Assigned at Date Recorded Not on file as of this encounter Last Filed Vital Signs Vital Sign Reading Time Taken Blood Pressure 107/68 06/13/2017 10:15 AM PACKER DENTURE Pulse 89 06/13/2017 10:15 AM PACKER DENTURE Temperature 36.4 C (97.5 F) 06/13/2017 10:15 AM PACKER DENTURE Respiratory Rate - - Oxygen Saturation 94% 06/13/2017 10:15 AM PACKER DENTURE Inhaled Oxygen - - Concentration Weight 68.1 kg (150 lb 2.1 oz) 06/13/2017 6:08 AM [facility] Height 160 cm (5' 2.99") 06/13/2017 6:08 AM PACKER DENTURE Body Mass Index 26.6 06/13/2017 6:08 AM [facility]URE in this encounter Medications at Time of [...] mg tablet three times daily. hydrOXYzine (ATARAX) 50 Take 50 mg by [...] mouth 25 mg extended release daily. tablet montelukast (SINGULAIR) Take 10 mg by mouth [...] by mouth at mg tablet bedtime daily. HYDROcodone/acetaminophen Take 1 tablet by mouth 20 tablet 0 201707/09/2017 (NORCO) 5/325 mg tablet every 4 hours as needed for Pain mirabegron(+) ER Take 1 tablet by mouth 30 tablet 3 03/07/201707/05 (MYRBETRIQ) 50 mg daily for 120 days. tabletIndications: Indications: URINARY URGE URINARY URGE INCONTINENCE INCONTINENCE polyethylene glycol 3350 Take 17 g by mouth daily 06/13/20172017 (GLYCOLAX; MIRALAX) 17 for 30 days. gram/dose powder senna/docusate Take 1 tablet by mouth 06/13/2017 07/13/2017 (SENOKOT-S) 8.6/50 mg daily for 30 days. tablet trospium(+) (SANCTURA) 20 Take 1 tablet by mouth 180 tablet 3 201607/09/2017 mg tablet three times daily before meals. as of this encounter Progress Notes * Leatha Langford RN - 06/13/2017 10:57 AM P[facility] 1050 - pt bladder scanned post void - 31ml - Dr. Sheridan notified. 1100 - pt cleared to go home per RN working with Dr. Sheridan * Lulu Roasles RN - 06/13/2017 10:47 AM PACKER DENTURE Patient's SpO2 > 95 % with 3L NC, which she reports she wears at home. While on room air, patient's sPO2 90-93%. Anesthesia notified at time of sign out. * Lulu Rosales RN - 06/13/2017 10:42 AM PACKER DENTURE Per orders, vaginal packing removed at approx. 1035 in PACU. 300 cc urine drained from cronin, 250 cc sterile water instilled into bladder via cronin. Cronin removed after sterile water instilled. Patient tolerated well. Transferred to phase II, hand off provided to Leatha Ozuna RN assuming care of patient. in this encounter H&P Notes * Balbina Garcia MD - 06/13/2017 6:06 AM [facility] Formatting of this note may be different from the original. History and Physical Update Note Ms Nara Huizar is a 61 yo F with incomplete bladder emptying and straining to void secondary to urethral sling - to OR for urethrolysis and cystoscopy - consent obtained and in chart - will give Ancef crissy-operatively Allergies: Ibuprofen and Triple antibiotic [uieph-iqrsl-gmugbvn-pramoxine] Lab/Radiology/Other Diagnostic Tests: 24-hour labs: No results found for this visit on 06/13/17 (from the past 24 hour(s)). Point of Care Testing: (Last 24 hours): None I have examined the patient, and there are no significant changes in their condition, from the previous H&P performed on 05/28/2017. Malaika Bergeron MD Pager [phone] ATTESTATION I personally performed the peters portions of the E/M visit, discussed case with resident and concur with resident documentation of history, physical exam, assessment, and treatment plan unless otherwise noted. Staff name: Balbina Garcia MD * Balbina Garcia MD - 05/28/2017 8:45 AM P[facility] D[facility]URE Formatting of this note may be different [...] one in 2014 COLONOSCOPY [place] SIGMOIDOSCOPY FLX DX W/COLLJ SPEC BR/WA IF PFRMD N/A 09/26/2015 SIGMOIDOSCOPY DIAGNOSTIC to rule out ulcerative colitis. performed by Edgardo Torres MD at ENDO/GI [facility] SIGMOIDOSCOPY FLX W/BIOPSY SINGLE/MULTIPLE 09/26/2015 SIGMOIDOSCOPY BIOPSY [...] this visit. Allergies Allergen Reactions Triple Antibiotic [Igsva-Vwgyc-Effrfpx-Pramoxine] RASH Ibuprofen Social History Social History Marital [...] Judgment and thought content normal. Vitals reviewed. Ezo=237tH Assessment and Plan: Ilya Daniel MD PGY-3 Urology in this encounter Miscellaneous Notes * Operative Report (Direct Entry) - Balbina Garcia MD - 06/13/2017 12:00 PM [facility] Formatting of this note may be different from the original. OPERATIVE REPORT Name: Nara Huizar is a 61 y.o. female : 1955 DATE OF OPERATION: 06/13/2017 Surgeon(s) and Role: * Balbina Garcia MD - Primary * Malcolm Sheridan MD - Resident - Assisting Preoperative Diagnosis: * Urinary obstruction [N13.9] Post-op Diagnosis * Urinary obstruction [N13.9] Procedure(s): URETHROLYSIS, INCISION OF URETHRAL SLING, CYSTOSCOPY Anesthesia Type: General Indications: 61 year old woman with a history of RICO, now status post urethral sling placement by Dr. Yeh approximately 3 years ago, that subsequently developed retention symptoms. Was found to have elevated post-void residuals and high pressure voiding on urodynamics. After reviewing her option she has elected to undergo sling excision for which she presents today. Description and Findings of Operative Procedure: Findings: 1. Atrophic vaginal tissue, mid-urethral mesh with moderate scarification 2. Urethral segment of mesh removed, cystoscopy negative for iatrogenic injury The patient was identified and informed consent was obtained. The patient was brought back to the operating room and placed on the table in the supine position. Bilateral sequential compressipon devices were placed. She received IV antibiotics prior to the smooth induction of anesthesia. Time out was performed confirming the correct patient and procedure planned. She was then placed in a dorsal lithotomy position taking care to pad all pressure point. Her genitals were prepped and draped in the usual sterile fashion. A 16 albanian cronin catheter was placed on the field in sterile fashion. The anterior vaginal wall was infiltrated with a solution of injectable saline, 1 percent lidocaine with epinephrine mixed [id number]. A midline incision made and spanned the width of the previously placed sing. We dissected the vaginal wall off of underlying pubocervical and pubovesical fasci and carried this down toward the endopelvic fascia. Due to scarrification from prior surgery , additional time was needed to isolate and free the sling. The segment of sling overlying the the urethra was sharply excised. Each arm was dissected to the endopelvic fascia cut and sent as pathology. Copious quantities of antibiotic irrigation were utilized. Final cystoscopic inspection of the bladder again revealed gross efflux from both ureteral orifices and integrity of the bladder and urethral mucosa. There was wiggins efflux from bilateral ureteral orifices. The vaginal wound was closed with running 2-0 Vicryl suture. Vaginal packing soaked with estrace cream was then placed into the vagina. The patient tolerated the procedure well. There were no complications. All sponge and instruments counts were correct at the end of the case. Dr. Garcia was present and scrubbed for the entire case. Estimated Blood Loss: 10 ml Specimen(s) Removed/Disposition: ID Type Source Tests Collected by Time Destination 1 : SLING MESH FOR ROUTINE Tissue Urinary Bladder SURGICAL PATHOLOGY Balbina Garcia MD 06/13/2017 0832 Complications: None Implants: None Drains: 1. 16Fr cronin catheter to gravity Disposition: PACU - stable Malcolm Sheridan MD Pager [phone] ATTESTATION I performed this procedure with a resident. 22 modifier was added due to scarrification from prior surgery requiring additional time for disseciton. Staff name: Balbina Garcia MD * Procedures (Immed Post or Bedside) - Balbina Garcia MD - 06/13/2017 9: 04 AM [facility] Formatting of this note may be different from the original. Brief Operative Note Name: Nara Huizar is a 61 y.o. female : 1955 DATE OF OPERATION: 06/13/2017 Date: 06/13/2017 Preoperative Dx: Urinary obstruction [N13.9] Post-op Diagnosis * Urinary obstruction [N13.9] Procedure(s): URETHROLYSIS, INCISION OF URETHRAL SLING, CYSTOSCOPY Anesthesia Type: General Surgeon(s) and Role: * Balbina Garcia MD - Primary * Malcolm Sheridan MD - Resident - Assisting Findings: 1. Atrophic vaginal tissue, mid-urethral mesh with moderate scarification 2. Urethral segment of mesh removed, cystoscopy negative for iatrogenic injury Estimated Blood Loss: 10 ml Specimen(s) Removed/Disposition: ID Type Source Tests Collected by Time Destination 1 : SLING MESH FOR ROUTINE Tissue Urinary Bladder SURGICAL PATHOLOGY Balbina Garcia MD 06/13/2017 0832 Complications: None Implants: None Drains: 1. 16Fr cronin catheter to gravity Disposition: PACU - stable Malcolm Sheridan MD Pager [phone] ATTESTATION I performed this procedure with a resident. 22 modifier was added and elaborated in operative note. Staff name: Balbina Garcia MD in this encounter Plan of Treatment Name Priority Associated Diagnoses Order Schedule SURGICAL PATHOLOGY Routine Urinary obstruction ONCE for 1 Occurrences starting 06/13/2017 as of this encounter Procedures Procedure Name Priority Date/Time Associated Diagnosis Comments ECG-SCAN 06/30/2017 Results for this 3:37 PM CDT procedure are in the results section. ECG-SCAN 06/16/2017 Results for this 11:54 AM CDT procedure are in the results section. URETHROLYSIS, INCISION OF 06/13/2017 Urinary obstruction URETHRAL SLING, 7:15 AM [facility] CYSTOSCOPY in this encounter Results * ECG-SCAN (06/30/2017 3:37 PM) Narrative Ordered by an unspecified provider. * ECG-SCAN (06/16/2017 11:54 AM) Narrative Ordered by an unspecified provider. * POC GLUCOSE (06/13/2017 9:05 AM) Component Value Ref Range Glucose, POC 98 70 - 100 MG/DL Specimen Performing Laboratory MAIN LAB [address] [place] [address] * SURGICAL PATHOLOGY (06/13/2017 9:04 AM) Component Value Ref Range PATHOLOGY REPORT [email or web address] Department of Pathology and Laboratory Medicine [address] [place] [address] Surgical Pathology Office:[phone]:[phone] SURGICAL PATHOLOGY REPORT NAME: NARA HUIZAR JO SURG PATH #: [id number] MR #: [id number] SPECIMEN CLASS: SR BILLING #: [id number] ALT ID #:LOCATION: [facility]ICE DATE OF PROCEDURE: [...] fibers. The soft tissue is removed and environmental marketing representative sections are submitted in cassette A1. (eef) 06/13/2017 Specimen Performing Laboratory [facility] RESULTS * POC GLUCOSE (06/13/2017 6:25 AM) Component Value Ref Range Glucose, POC 110 (H) 70 - 100 MG/DL Specimen Performing Laboratory [facility] [address] [place] [address] in this encounter Visit Diagnoses Diagnosis Urinary obstruction Urinary obstruction, unspecified Admitting Diagnoses Diagnosis Urinary obstruction - unknown Urinary obstruction, unspecified Administered Medications Medication Order MAR Action Action Date Dose Rate Site ceFAZolin (ANCEF) 1 g in sodium chloride Given 06/13/2017 1,000 mL Other 0.9% irrigation bottle 1,000 mL 08:20 P[facility]URE irrigation bottle 1,000 mL, INTRA-PROCEDURE MED, Starting Fri06/13/17 at 0820, Until Fri06/13/17 at 1835, Intra-op diphenhydrAMINE (BENADRYL) injection 25 mg 25 mg, Intravenous, ONCE PRN, 1 dose, Starting Fri06/13/17 at 0852, Until Fri06/13/17 at 1835, Other..., nausea/vomiting, Third line agent, give if second line agent ineffective. estradiol (ESTRACE) vaginal cream Given 06/13/2017 2 Doses Other INTRA-PROCEDURE MED, Starting Fri06/13/17 08:20 PACKER DENTURE at 0820, Until Fri06/13/17 at 1835, Intra-op fentaNYL citrate PF (SUBLIMAZE) Given 06/13/2017 50 mcg injection 25-50 mcg 09:09 [facility] 25-50 mcg, Intravenous, EVERY 5 MIN PRN, Starting Fri06/13/17 at 0852, Until Fri06/13/17 at 183, Pain Injectable, For Pain Score 7-10, Maximum total dose of 200 mcg Hold for RR < 10 Given 06/13/2017 50 mcg 09:17 PACKER D[facility]URE haloperidol (HALDOL) injection 1 mg 1 mg, Intravenous, ONCE PRN, 1 dose, Starting Fri06/13/17 at 0852, Until Fri06/13/17 at 183, Other..., Nausea and Vomiting, Second line agent, give if first line agent ineffective. DO NOT ADMINISTER if given intraoperatively. HYDROmorphone injection (DILAUDID) Given 06/13/2017 0.5 mg injection 0.5 mg 09:44 [facility] 0.5 mg, Intravenous, ONCE, 1 dose, Fri06/13/17 at 0945, PACU (only) lactated ringers infusion Given - New 06/13/2017 1,000 mL 20 mL/hr 1,000 mL, 1,000 mL, Intravenous, at 20 Bag 06:20 PACK[facility]URE mL/hr, CONTINUOUS, Starting Fri06/13/17 at 0600, Until Fri06/13/17 at 183, Pre-Op Given - New Bag 06/13/2017 08:44 PACKER [facility]URE lactated ringers infusion 1,000 mL, 250 mL, Intravenous, SEE ADMIN INSTRUCTIONS, Starting Fri06/13/17 at 0852, Until Fri06/13/17 at 183, Replace NPO loss per post anesthesia protocol with Lactated Ringers or Normal Saline unless otherwise ordered by physician. lidocaine 1% /EPINEPHrine 1:[id number] Given 06/13/2017 20 mL Other (buffered) vial 08:44 P[facility] INTRA-PROCEDURE MED, Starting Fri06/13/17 at 0821, Until Fri06/13/17 at 183, Intra-op lidocaine PF 1% (10 mg/mL) injection 0.1-2 mL 0.1-2 mL, Injection, NEEDED, Starting Fri06/13/17 at 0648, Until Fri06/13/17 at 183, Other..., for IV insertion, Pre-Op ondansetron (ZOFRAN) injection 4 mg 4 mg, Intravenous, ONCE PRN, 1 dose, Starting Fri06/13/17 at 0852, Until Fri06/13/17 at 1835, Other..., nausea/vomiting, First line agent. DO NOT ADMINISTER if given intraoperatively oxyCODONE (ROXICODONE, OXY-IR) tablet Given 06/13/2017 10 mg 5-10 mg 09:22 [facility] 5-10 mg, Oral, ONCE PRN, 1 dose, Starting Fri06/13/17 at 0852, Until Fri06/13/17 at 2359, Pain PO, For Pain Score <4, PACU (only) sodium chloride 0.9 % irrigation bag Given 06/13/2017 3,000 mL Other INTRA-PROCEDURE MED, Starting Fri06/13/17 08:22 PACKER DENTURE at 0822, Until Fri06/13/17 at 1835, Intra-op water, sterile irrigation bottle Given 06/13/2017 Irrigation, ONCE, 1 dose, Fri06/13/17 at 10:51 PACKER DENTURE 1000, PACU (only) in this encounter
--- OUTSIDE RECORDS SUMMARY | 2017-07-16 07:16 | XMS REPORT | Encounter Summary ---
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 Role Phone Apoorva Shane MD [...] Referred By Referred To Procedures Contact Contact Closed Specialty Cardiology Diagnoses [facility] Urinary MD Balbina [address] [place] [phone] Phone: Reason for Visit * Reason Comments General Question Encounter Details Date Type Department Care Team Description 05/30/2017 Telephone [facility] Balbina Garcia MD General Question Physicians - Urology [address] F[address] [place] [address] OFFICE BLDG [phone] [place] [address] Social History Tobacco Use Types Packs/Day Years Used Date Former Smoker Cigarettes 40 Quit: 05/29/2015 Smokeless Tobacco: Never Used Alcohol Use Drinks/Week oz/Week Comments No 0 Standard 0.0 drinks or equivalent Sex Assigned at Date Recorded Not on file as of this encounter Miscellaneous Notes * Telephone Encounter - Joleen Hsu LPN - 05/30/2017 11:20 AM TELECOM COORDINATOR Preop clearance Faxed to [phone], Dr. Olivo's office. in this encounter Plan of Treatment Name Priority Associated Diagnoses Order Schedule AMB REFERRAL TO ADULT CARDIOLOGY Routine Urinary obstruction Ordered: as of this encounter Visit Diagnoses Diagnosis Urinary obstruction - Primary Urinary obstruction, unspecified
--- OUTSIDE RECORDS SUMMARY | 2017-07-16 07:16 | XMS REPORT | Encounter Summary ---
Author Author [facility] Organization [facility] Address Unknown Phone Unavailable Care Team Providers Care Testing Manager Name Role Phone Apoorva Shane MD Unavailable Edgardo Torres MD Unavailable Amanda Bhandari Unavailable Montana Villasenor MD Unavailable Gilles Ness MD Unavailable Rain Tariq MD Unavailable Harika Hsu MD Unavailable Nayana Mccarty RN Unavailable Unavailable Symone Lee Unavailable Unavailable Sukumar Mondragon APRN PCP Reason for Visit * Reason Comments General Question Encounter Details Date Type Department Care Team Description 05/29/2017 Telephone [facility] Balbina Garcia MD General Question Physicians - Urology [address] [facility] [address] FLO[address] [place] [address] [facility] [place] [address] OFFICE BLDG [phone] [place] [address] Social History Tobacco Use Types Packs/Day Years Used Date Former Smoker Cigarettes 40 Quit: 05/29/2015 Smokeless Tobacco: Never Used Alcohol Use Drinks/Week oz/Week Comments No 0 Standard 0.0 drinks or equivalent Sex Assigned at Date Recorded Not on file as of this encounter Miscellaneous Notes * Telephone Encounter - Baltazar Alfred LPN - 05/29/2017 8:32 AM 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 Needs clearance from [...]
--- OUTSIDE RECORDS SUMMARY | 2017-07-16 07:16 | XMS REPORT | Encounter Summary ---
Author Author [facility] Organization [facility] Address Unknown Phone Unavailable Care Team Providers Care Recreation Technician Name Role Phone Apoorva Shane MD Unavailable [...] Contact Diagnoses Urinary obstruction unknown P rocedures [place] RMVL/REVJ SLING STRESS INCONTINENCE REVISION/REMOVAL VAGINAL SLING Encounter Details Date Type Department Care Team Description 06/13/2017 Surgery Main Operating Room Balbina Garcia MD URETHROLYSIS, INCISION OF [address] URETHRAL SLING, [place] [address] [address] CYSTOSCOPY [phone] [place] [address] Social History Tobacco Use Types Packs/Day Years Used Date Former Smoker Cigarettes 0.25 46 Smokeless Tobacco: Never Used Alcohol Use Drinks/Week oz/Week Comments No 0 Standard 0.0 drinks or equivalent Sex Assigned at Date Recorded Not on file as of this encounter Last Filed Vital Signs Vital Sign Reading Time Taken Blood Pressure 107/68 06/13/2017 10:15 AM GERIATRIC CASE MANAGER Pulse 89 06/13/2017 10:15 AM GERIATRIC CASE MANAGER Temperature 36.4 C (97.5 F) 06/13/2017 10:15 AM GERIATRIC CASE MANAGER Respiratory Rate - - Oxygen Saturation 94% 06/13/2017 10:15 AM GERIATRIC CASE MANAGER Inhaled Oxygen - - Concentration Weight 68.1 kg (150 lb 2.1 oz) 06/13/2017 6:08 AM GERIATRIC CASE MANAGER Height 160 cm (5' 2.99") 06/13/2017 6:08 AM GERIATRIC CASE MANAGER Body Mass Index 26.6 06/13/2017 6:08 AM GERIATRIC CASE MANAGER in this encounter Medications at Time of [...] Leatha Langford RN - 06/13/2017 10:57 AM GERIATRIC CASE MANAGER 1050 - pt bladder scanned post void - 31ml - Dr. Sheridan notified. 1100 - pt cleared to go home per RN working with Dr. Sheridan * Lulu Rosales RN - 06/13/2017 10:47 AM GERIATRIC CASE MANAGER Patient's SpO2 > 95 % with 3L NC, which she reports she wears at home. While on room air, patient's sPO2 90-93%. Anesthesia notified at time of sign out. * Lulu Rosales RN - 06/13/2017 10:42 AM GERIATRIC CASE MANAGER Per orders, vaginal packing removed at approx. 1035 in PACU. 300 cc urine drained from cronin, 250 cc sterile water instilled into bladder via cronin. Cronin removed after sterile water instilled. Patient tolerated well. Transferred to phase II, hand off provided to Leatha Ozuna RN assuming care of patient. in this encounter H&P Notes * Balbina Garcia MD - 06/13/2017 6:06 AM GERIATRIC CASE MANAGER Formatting of this note may be different from the original. History and Physical Update Note Ms Nara Huizar is a 61 yo F with incomplete bladder emptying and straining to void secondary to urethral sling - to OR for urethrolysis and cystoscopy - consent obtained and in chart - will give Ancef crissy-operatively Allergies: Ibuprofen and Triple antibiotic [rfuml-fapgu-encmyth-pramoxine] Lab/Radiology/Other Diagnostic Tests: 24-hour labs: No results found for this visit on 06/13/17 (from the past 24 hour(s)). Point of Care Testing: (Last 24 hours): None I have examined the patient, and there are no significant changes in their condition, from the previous H&P performed on 05/28/2017. Malaika Bergeron MD Pager [phone] ATTESTATION I personally performed the peters portions of the E/M visit, discussed case with resident and concur with resident documentation of history, physical exam, assessment, and treatment plan unless otherwise noted. Staff name: Balbina Garcia MD * Balbina Garcia MD - 05/28/2017 8:45 AM GERIATRIC CASE MANAGER Formatting of this note may be different [...] one in 2014 COLONOSCOPY [place] SIGMOIDOSCOPY FLX DX W/COLLJ SPEC BR/WA IF PFRMD N/A 09/26/2015 SIGMOIDOSCOPY DIAGNOSTIC to rule out ulcerative colitis. performed by Edgardo Torres MD at ENDO/GI [place] SIGMOIDOSCOPY FLX W/BIOPSY SINGLE/MULTIPLE 09/26/2015 SIGMOIDOSCOPY BIOPSY [...] this visit. Allergies Allergen Reactions Triple Antibiotic [Swjky-Jgrrc-Egwjfdm-Pramoxine] RASH Ibuprofen Social History Social History Marital [...] Judgment and thought content normal. Vitals reviewed. Flr=[id number] Assessment and Plan: Ilya Daniel MD PGY-3 Urology in this encounter Miscellaneous Notes * Operative Report (Direct Entry) - Balbina Garcia MD - 06/13/2017 12:00 PM GERIATRIC CASE MANAGER Formatting of this note may be different [...] in the usual sterile fashion. A 16 irish cronin catheter was placed on the field in sterile fashion. The anterior vaginal wall was infiltrated with a solution of injectable saline, 1 percent lidocaine with epinephrine mixed [id number]. A midline incision made and spanned the [...] PACU - stable Malcolm Sheridan MD Pager [phone] ATTESTATION I performed this procedure with a resident. 22 modifier was added due to scarrification from prior surgery requiring additional time for disseciton. Staff name: Balbina Garcia MD * Procedures (Immed Post or Bedside) - Balbina Garcia MD - 06/13/2017 9: 04 AM GERIATRIC CASE MANAGER Formatting of this note may be different from the original. Brief Operative Note Name: Nara Huizar is a 61 y.o. female : 1955 DATE OF OPERATION: 06/13/2017 Date: 06/13/2017 Preoperative Dx: Urinary obstruction [N13.9] Post-op Diagnosis * Urinary obstruction [N13.9] Procedure(s): URETHROLYSIS, INCISION OF URETHRAL SLING, CYSTOSCOPY Anesthesia Type: General Surgeon(s) and Role: * Balbina Gracia MD - Primary * Malcolm Sheridan MD [...] PACU - stable Malcolm Sheridan MD Pager [phone] ATTESTATION I performed this procedure with a [...] 06/13/2017 Urinary obstruction URETHRAL SLING, 7:15 AM GERIATRIC CASE MANAGER CYSTOSCOPY in this encounter Results * ECG-SCAN (06/30/2017 3:37 PM) Narrative Ordered by an unspecified provider. * ECG-SCAN (06/16/2017 11:54 AM) Narrative Ordered by an unspecified provider. * POC GLUCOSE (06/13/2017 9:05 AM) Component Value Ref Range Glucose, POC 98 70 - 100 MG/DL Specimen Performing Laboratory MAIN LAB [address] [place] [address] * SURGICAL PATHOLOGY (06/13/2017 9:04 AM) Component Value Ref Range PATHOLOGY REPORT [facility] [email or web address] Department of Pathology and Laboratory Medicine [address] [place] [address] Surgical Pathology Office:[phone]:[phone] SURGICAL PATHOLOGY REPORT NAME: NARA HUIZAR JO SURG PATH #: [id number] MR #: [id number] SPECIMEN CLASS: SR BILLING #: [id number] ALT ID #:LOCATION: ALICE DATE OF PROCEDURE: [...] fibers. The soft tissue is removed and dealer compliance representative sections are submitted in cassette A1. (eef) 06/13/2017 Specimen Performing Laboratory [facility] RESULTS * POC GLUCOSE (06/13/2017 6:25 AM) Component Value Ref Range Glucose, POC 110 (H) 70 - 100 MG/DL Specimen Performing Laboratory [facility] [address] [place] [address] in this encounter Visit Diagnoses Diagnosis Urinary obstruction Urinary obstruction, unspecified Admitting Diagnoses Diagnosis Urinary obstruction - unknown Urinary obstruction, unspecified Administered Medications Medication Order MAR Action Action Date Dose Rate Site ceFAZolin (ANCEF) 1 g in sodium chloride Given 06/13/2017 1,000 mL Other 0.9% irrigation bottle 1,000 mL 08:20 GERIATRIC CASE MANAGER irrigation bottle 1,000 mL, INTRA-PROCEDURE MED, Starting Fri06/13/17 at 0820, Until Fri06/13/17 at 1835, Intra-op diphenhydrAMINE (BENADRYL) injection 25 mg 25 mg, Intravenous, ONCE PRN, 1 dose, Starting Fri06/13/17 at 0852, Until Fri06/13/17 at 1835, Other..., nausea/vomiting, Third line agent, give if second line agent ineffective. estradiol (ESTRACE) vaginal cream Given 06/13/2017 2 Doses Other INTRA-PROCEDURE MED, Starting Fri06/13/17 08:20 GERIATRIC CASE MANAGER at 0820, Until Fri06/13/17 at 1835, Intra-op fentaNYL citrate PF (SUBLIMAZE) Given 06/13/2017 50 mcg injection 25-50 mcg 09:09 GERIATRIC CASE MANAGER 25-50 mcg, Intravenous, EVERY 5 MIN PRN, Starting Fri06/13/17 at 0852, Until Fri06/13/17 at 1835, Pain Injectable, For Pain Score 7-10, Maximum total dose of 200 mcg Hold for RR < 10 Given 06/13/2017 50 mcg 09:17 GERIATRIC CASE MANAGER haloperidol (HALDOL) injection 1 mg 1 mg, Intravenous, ONCE PRN, 1 dose, Starting Fri06/13/17 at 0852, Until Fri06/13/17 at 183, Other..., Nausea and Vomiting, Second line agent, give if first line agent ineffective. DO NOT ADMINISTER if given intraoperatively. HYDROmorphone injection (DILAUDID) Given 06/13/2017 0.5 mg injection 0.5 mg 09:44 GERIATRIC CASE MANAGER 0.5 mg, Intravenous, ONCE, 1 dose, Fri06/13/17 at 0945, PACU (only) lactated ringers infusion Given - New 06/13/2017 1,000 mL 20 mL/hr 1,000 mL, 1,000 mL, Intravenous, at 20 Bag 06:20 GERIATRIC CASE MANAGER mL/hr, CONTINUOUS, Starting Fri06/13/17 at 0600, Until Fri06/13/17 at 1835, Pre-Op Given - New Bag 06/13/2017 08:44 GERIATRIC CASE MANAGER lactated ringers infusion 1,000 mL, 250 mL, Intravenous, SEE ADMIN INSTRUCTIONS, Starting Fri06/13/17 at 0852, Until Fri06/13/17 at 183, Replace NPO loss per post anesthesia protocol with Lactated Ringers or Normal Saline unless otherwise ordered by physician. lidocaine 1% /EPINEPHrine 1:[id number] Given 06/13/2017 20 mL Other (buffered) vial 08:44 GERIATRIC CASE MANAGER INTRA-PROCEDURE MED, Starting Fri06/13/17 at 0821, Until Fri06/13/17 at 1835, Intra-op lidocaine PF 1% (10 mg/mL) injection [...] Given 06/13/2017 10 mg 5-10 mg 09:22 GERIATRIC CASE MANAGER 5-10 mg, Oral, ONCE PRN, 1 dose, Starting Fri06/13/17 at 0852, Until Fri06/13/17 at 2359, Pain PO, For Pain Score <4, PACU (only) sodium chloride 0.9 % irrigation bag Given 06/13/2017 3,000 mL Other INTRA-PROCEDURE MED, Starting Fri06/13/17 08:22 GERIATRIC CASE MANAGER at 0822, Until Fri06/13/17 at 1835, Intra-op water, sterile irrigation bottle Given 06/13/2017 Irrigation, ONCE, 1 dose, Fri06/13/17 at 10:51 GERIATRIC CASE MANAGER 1000, PACU (only) in this encounter
--- OUTSIDE RECORDS SUMMARY | 2017-07-16 07:16 | XMS REPORT | Encounter Summary ---
Author Author [facility] Organization [facility] Address Unknown Phone Unavailable Care Team Providers Care Camera Person Name Role Phone Apoorva Shane MD Unavailable Edgardo Torres MD Unavailable Amanda Bhandari Unavailable Montana Villasenor MD Unavailable Gilles Ness MD Unavailable Rain Tariq MD Unavailable Harika Hsu MD Unavailable Nayana Mccarty RN Unavailable Unavailable Symone Lee Unavailable Unavailable Sukumar Mondragon APRN PCP Reason for Visit * Reason Comments Medication Refill Encounter Details Date Type Department Care Team Description 06/10/2017 Refill [facility] Gilles Ness MD Physicians - OBGYN [address] [facility] [address] [address] [facility] [place] [address] OFFICE BLDG [phone] [place] [address] Social History Tobacco Use Types [...]
--- OUTSIDE RECORDS SUMMARY | 2017-07-16 07:16 | XMS REPORT | Encounter Summary ---
Author Author [facility] Organization [facility] Address Unknown Phone Unavailable Care Team Providers Care Tank Car Reconditioner Name Role Phone Apoorva Shane MD Unavailable [...] Contact Diagnoses Urinary obstruction unknown P rocedures [place] RMVL/REVJ SLING STRESS INCONTINENCE REVISION/REMOVAL VAGINAL SLING Encounter Details Date Type Department Care Team Description 06/13/2017 Anesthesia Main Operating Room Olga Duron MD Event [address] [facility] [address] [place] [address] [address] [place], [place] [id number] Anesthesia Record Procedure Name Responsible Anesthesia Start [...] L; Mid; Forearm; 20 06/13/17 0608 by Aki , IV G; No; Vein Light Used; [...] Huang Siddiqui MD - 06/13/2017 10:23 AM GOLF TOURNAMENT CONSULTANT Post-Anesthesia Evaluation Name: Nara Huizar : 1955 Age: 61 y.o. Sex: female Procedure Date: 06/13/2017 Procedure: Procedure(s) with comments: URETHROLYSIS, INCISION OF URETHRAL SLING, CYSTOSCOPY - CASE LENGTH 1.5 HOURS Surgeon: Surgeon(s): Balbina Garcia MD Farrow, Jason, MD Post-Anesthesia Vitals BP: 107/68 (06/13 1014) Temp: 36.4 C (97.5 F) (06/13 1014) [...] Tone Fregoso MD - 06/04/2017 8:02 AM GOLF TOURNAMENT CONSULTANT Formatting of this note may be different [...] Patient History Allergies Allergen Reactions Triple Antibiotic [Cuhva-Yhrbt-Ktyrrhw-Pramoxine] RASH Ibuprofen Current Medications Medication Directions albuterol [...] tested positive.) 3-5 L via NC. Saw fuel distribution system operator in Apr and again 05/29/17.; Her most [...] disease Hx TIA CVA (facial droop, terminal press operator memory loss, left hemiparesis), residual symptoms Headaches [...] with patient. Plan discussed with: anesthesiologist and GMAT INSTRUCTOR. 2/28/18 evaluated by ABA Samaniego; cardiology gave clearance [...] g, Intravenous, ONCE, 1 dose, Fri 07:40 GOLF TOURNAMENT CONSULTANT 06/13/17 at 0600, Give Pre-Op < 60 minutes prior to first incision. (Given in OR). IV PUSH -- RECONSTITUTE each 1 g vial by adding 10 mL 0.9% NACL dexamethasone (DECADRON) injection Given 06/13/2017 4 mg Intravenous, INTRA-PROCEDURE MED, 08:50 GOLF TOURNAMENT CONSULTANT Starting Fri06/13/17 at 0850, Until Fri06/13/17 at 0907, Nausea/Vomiting Injectable, Anesthesia Intra-op fentaNYL citrate PF (SUBLIMAZE) Given 06/13/2017 25 mcg injection 07:56 GOLF TOURNAMENT CONSULTANT INTRA-PROCEDURE MED, Starting Fri06/13/17 at 0732, Until Fri06/13/17 at 0907, Pain Injectable, Anesthesia Intra-op Given 06/13/2017 25 mcg 08:35 GOLF TOURNAMENT CONSULTANT Given 06/13/2017 25 mcg 08:44 GOLF TOURNAMENT CONSULTANT indigotindisulfonate (INDIGO CARMINE) Given 06/13/2017 5 mL injection 08:39 GOLF TOURNAMENT CONSULTANT INTRA-PROCEDURE MED, Starting Fri06/13/17 at 0839, Until Fri06/13/17 at 0907, Anesthesia Intra-op lactated ringers infusion Given - New 06/13/2017 1,000 mL 20 mL/hr 1,000 mL, 1,000 mL, Intravenous, at 20 Bag 06:20 GOLF TOURNAMENT CONSULTANT mL/hr, CONTINUOUS, Starting Fri06/13/17 at 0600, Until Fri06/13/17 at 1835, Pre-Op Given - New Bag 06/13/2017 08:44 GOLF TOURNAMENT CONSULTANT lidocaine (PF) injection Given 06/13/2017 60 mg INTRA-PROCEDURE MED, Starting Fri06/13/17 07:32 GOLF TOURNAMENT CONSULTANT at 0732, Until Fri06/13/17 at 0907, Anesthesia Intra-op midazolam (VERSED) injection Given 06/13/2017 2 mg Intravenous, INTRA-PROCEDURE MED, 07:25 GOLF TOURNAMENT CONSULTANT Starting Fri06/13/17 at 0725, Until Fri06/13/17 at 0907, Agitation Injectable, Anxiety Injectable, Anesthesia Intra-op ondansetron (ZOFRAN) injection Given 06/13/2017 4 mg Intravenous, INTRA-PROCEDURE MED, 08:50 GOLF TOURNAMENT CONSULTANT Starting Fri06/13/17 at 0850, Until Fri06/13/17 at 0907, Nausea/Vomiting Injectable, Anesthesia Intra-op phenylephrine in NS Injection Given 06/13/2017 100 mcg Intravenous, INTRA-PROCEDURE MED, 08:04 GOLF TOURNAMENT CONSULTANT Starting Fri06/13/17 at 0738, Until Fri06/13/17 at 0907, Symptomatic Hypotension, Anesthesia Intra-op Given 06/13/2017 100 mcg 08:13 GOLF TOURNAMENT CONSULTANT Given 06/13/2017 100 mcg 08:19 GOLF TOURNAMENT CONSULTANT propofol (DIPRIVAN) injection Given 06/13/2017 100 mg INTRA-PROCEDURE MED, Starting Fri06/13/17 07:32 GOLF TOURNAMENT CONSULTANT at 0732, Until Fri06/13/17 at 0907, Anesthesia Intra-op in this encounter
--- OUTSIDE RECORDS SUMMARY | 2017-07-16 07:16 | XMS REPORT | Encounter Summary ---
Author Author [facility] Organization [facility] Address Unknown Phone Unavailable Care Team Providers Care Shade Bander Name Role Phone Apoorva Shane MD Unavailable [...] Garcia MD Atrial fibrillation, Visit Clinic [address] unspecified type (HCC) [address] (Primary Dx); [place] [address] [place] [address] Hypertension, unspecified [phone] type Anesthesia Record Procedure Name Responsible Anesthesia [...] Taken Blood Pressure 104/56 06/04/2017 7:21 AM PATTERN CHANGER Pulse 73 06/04/2017 7:21 AM PATTERN CHANGER Temperature 36.6 C (97.9 F) 06/04/2017 7:21 AM PATTERN CHANGER Respiratory Rate - - Oxygen Saturation 95% 06/04/2017 8:50 AM PATTERN CHANGER Inhaled Oxygen - - Concentration Weight 70.8 kg (156 lb) 06/04/2017 7:21 AM PATTERN CHANGER Height 160 cm (5' 3") 06/04/2017 7:21 AM PATTERN CHANGER Body Mass Index 27.63 06/04/2017 7:21 AM PATTERN CHANGER in this encounter Instructions * Pre-Anesthesia Patient Instructions - Mary Hoff RN - 06/04/2017 7:57 AM PATTERN CHANGER GENERAL INFORMATION Before you come to the [...] and any other valuables at home. The [facility] is not responsible for the loss or breakage of personal items. Remove nail frisian, makeup and all jewelry (including piercings) before [...] to cancel your procedure Notify us at [facility]: if you need to cancel [...] confirm your arrival time. Before 4:30pm, call [phone]. After 4:30pm call [phone]. Arrival at the hospital Main Hospital: Park in the Parking Garage, located directly across from the main entrance to the hospital. Flight Operations Specialist parking is available from 7 AM to 4 PM Friday through Friday. Validate your parking ticket at the Information Desk in the hospital lobby. Proceed to Admissions located across the lobby from the Information Desk. * Pre-Anesthesia Medication Instructions - Jt Fregoso, PHARMD - 06/04/2017 7 :33 AM PATTERN CHANGER Formatting of this note may be different [...] with any medicine updates or questions. E-mail: [email or web address] Before going home from the hospital, please ask your doctor when you should re- start your medicines that were stopped before surgery. in this encounter Progress Notes * Jt Fregoso PHARMD - 06/04/2017 8:00 AM [facility] PAC Anticoagulant Plan Note: Nara Huizar was seen in the PAC on 06/04/17. As part of the visit, an accurate medication list was obtained and the patient was given pre-op medication instructions for upcoming surgery on 06/13/17. Per clearance letter from the patient's inspector repairer Dr. Osobrn, the patient should hold apixaban for 7 [...]
--- OUTSIDE RECORDS SUMMARY | 2017-07-16 07:17 | XMS REPORT | Encounter Summary ---
Author Author [facility] Organization [facility] Address Unknown Phone Unavailable Care Team Providers Care Asp Net Software Developer Name Role Phone Apoorva Shane MD Unavailable Edgardo Torres MD Unavailable Amanda Bhandari Unavailable Montana Villasenor MD Unavailable Gilles Ness MD Unavailable Rain Tariq MD Unavailable Harika Hus MD Unavailable Nayana Mccarty RN Unavailable Unavailable Symone Lee Unavailable Unavailable Sukumar Mondragon APRN PCP Encounter Details Date Type Department Care Team Description 05/29/2017 Documentation [facility] Balbina Garcia MD Physicians - Urology [address] [address] OFFICE [facility] [phone] [place] [address] Social History Tobacco Use Types [...]
--- OUTSIDE RECORDS SUMMARY | 2017-07-16 07:17 | XMS REPORT | Encounter Summary ---
Author Author [facility] Organization [facility] Address Unknown Phone Unavailable Care Team Providers Care Embedded Software Development Engineer Name Role Phone Apoorva Shane MD Unavailable Edgardo Torres MD Unavailable Amanda Bhandari Unavailable Montana Villasenor MD Unavailable Gilles Ness MD Unavailable Rain Tariq MD Unavailable Harika Hsu MD Unavailable Nayana Mccarty RN Unavailable Unavailable Symone Lee Unavailable Unavailable Sukumar Mondragon APRN PCP Encounter Details Date Type Department Care Team Description 05/28/2017 Hospital Clinlab Balbina Garcia MD Hemorrhagic condition, Encounter [address] unspecified (HCC) [place] [address] [address] [place] [address] [phone] Social History Tobacco Use Types Packs/Day Years [...] by mouth at mg tablet bedtime daily. ALPRAZolam (XANAX) 1 mg Take 1 mg [...] into nose as 06/04/2017 (FLONASE NA) directed. HYDROcodone/acetaminophen Take 1 tablet by mouth 20 tablet 0 201707/09/2017 (NORCO) 5/325 mg tablet every 4 hours as needed for Pain hydrOXYzine (ATARAX) 25 Take 25 mg by mouth three 06/04/2017 mg tablet times daily as needed for Itching. mirabegron(+) ER Take 1 tablet by mouth 30 tablet 3 03/07/201707/05 (MYRBETRIQ) 50 mg daily for 120 days. tabletIndications: Indications: URINARY URGE URINARY URGE INCONTINENCE INCONTINENCE mirtazapine (REMERON) 45 Take 45 mg by mouth at 06/04/2017 mg tablet bedtime daily. polyethylene glycol 3350 Take 17 g by mouth daily 06/13/20172017 (GLYCOLAX; MIRALAX) 17 for 30 days. gram/dose powder senna/docusate Take 1 tablet by mouth 06/13/2017 07/13/2017 (SENOKOT-S) 8.6/50 mg daily for 30 days. tablet trospium(+) (SANCTURA) 20 Take 1 tablet by mouth 180 tablet 3 201607/09/2017 mg tablet three times daily before meals. as of this encounter Plan of Treatment Not on fileas of this encounter Procedures Procedure Name Priority Date/Time Associated Diagnosis Comments ECG-SCAN 06/16/2017 Results for this 11:54 AM CDT procedure are in the results section. in this encounter Results * ECG-SCAN (06/16/2017 11:54 AM) Narrative Ordered by an unspecified provider. * PTT (APTT) (05/28/2017 10:02 AM) Component Value Ref Range APTT 29.9 21.0 - 39.0 SEC Specimen Performing Laboratory [facility] [address] [place] [address] * PROTIME INR (PT) (05/28/2017 10:02 AM) Component Value Ref Range INR 1.0 0.8 - 1.2 Specimen Performing Laboratory [facility] [address] [place] [address] * BASIC METABOLIC PANEL (05/28/2017 10:02 AM) [...] Performing Laboratory Blood [facility] [address] [place] [address] in this encounter Visit Diagnoses Diagnosis Hyponatremia Hyposmolality and/or hyponatremia Bleeding tendency (HCC) Unspecified hemorrhagic conditions Urinary obstruction Urinary obstruction, unspecified Admitting Diagnoses Diagnosis Hemorrhagic condition, unspecified (HCC) Hemorrhagic condition, unspecified
--- OUTSIDE RECORDS SUMMARY | 2017-07-16 07:17 | XMS REPORT | Encounter Summary ---
Author Author [facility] Organization [facility] Address Unknown Phone Unavailable Care Team Providers Care Paper Cup Handle Machine Operator Name Role Phone Apoorva Shane MD Unavailable Edgardo Torres MD Unavailable Amanda Bhandari Unavailable Montana Villasenor MD Unavailable Gilles Ness MD Unavailable Rain Tariq MD Unavailable Harika Hsu MD Unavailable Nayana Mccarty RN Unavailable Unavailable Symone Lee Unavailable Unavailable Sukumar Mondragon APRN PCP Encounter Details Date Type Department Care Team Description 05/28/2017 Prep for Case [facility] Balbina Garcia MD Urinary obstruction Physicians - Urology [address] (Primary Dx); [address]ND FLOOR [address]OD [address] Bleeding tendency (HCC) [address] [place] [address] OFFICE BLDG [phone] [place] [address] Social History Tobacco Use Types [...] SEC Specimen Performing Laboratory MAIN LAB [address] [place] [address] * PROTIME INR (PT) (05/28/2017 10:02 AM) Component Value Ref Range INR 1.0 0.8 - 1.2 Specimen Performing Laboratory MAIN LAB [address] [place] [address] in this encounter Visit Diagnoses Diagnosis Urinary obstruction - Primary Urinary obstruction, unspecified Bleeding tendency (HCC) Unspecified hemorrhagic conditions
--- OUTSIDE RECORDS SUMMARY | 2017-07-16 07:17 | XMS REPORT | Encounter Summary ---
Author Author [facility] Organization [facility] Address Unknown Phone Unavailable Care Team Providers Care Eap Consultant Name Role Phone Apoorva Shane MD Unavailable Edgardo Torres MD Unavailable Amanda Bhandari Unavailable Montana Villasenor MD Unavailable Gilles Ness MD Unavailable Rain Tariq MD Unavailable Harika Hsu MD Unavailable Nayana Mccarty RN Unavailable Unavailable Symone Lee Unavailable Unavailable Sukumar Mondragon APRN PCP Encounter Details Date Type Department Care Team Description 05/28/2017 Hospital Clin[facility] Balbina Garcia MD Urge incontinence Encounter [address] [facility]. [address] [place] [address] [address] [place] [address] [phone] Social History Tobacco Use Types Packs/Day Years [...] - Urine,Clean Catch [facility] [address] [place] [address] * SODIUM-URINE RANDOM (05/28/2017 9:30 AM) Component Value Ref Range Sodium, Random 35 MMOL/L Specimen Performing Laboratory Urine MAIN LAB [address] [place] [address] * OSMOLALITY-URINE RANDOM (05/28/2017 9:30 AM) Component Value Ref Range Osmolality-Urine 193 50 - 1,400 MOS/KG Specimen Performing Laboratory Urine MAIN LAB [address] [place] [address] in this encounter Visit Diagnoses Diagnosis Hyponatremia Hyposmolality and/or hyponatremia Urge incontinence of urine Urge incontinence Admitting Diagnoses Diagnosis Urge incontinence
--- OUTSIDE RECORDS SUMMARY | 2017-07-16 07:18 | XMS REPORT | Encounter Summary ---
Author Author [facility] Organization [facility] Address Unknown Phone Unavailable Care Team Providers Care Parking Enforcement Manager Name Role Phone Apoorva Shane MD [...] [address] [place] [address] Phone: Encounter Details Date Type Department Care Team Description 05/20/2017 Procedure visit [facility] Alvaro Duval MD Urge incontinence Physicians - Urology [address] (Primary Dx) 2ND FLOOR POD A [address] [place] [address] OFFICE BLDG [phone] [place] [address] B [phone] Harika jensen MD [address] [facility] [address] [place] [address] [phone] Social History Tobacco Use Types Packs/Day Years Used Date Former Smoker Cigarettes 40 Quit: 05/29/2015 Smokeless Tobacco: Never Used Alcohol Use Drinks/Week oz/Week Comments No 0 Standard 0.0 drinks or equivalent Sex Assigned at Date Recorded Not on file as of this encounter Last Filed Vital Signs Vital Sign Reading Time Taken Blood Pressure 114/67 05/20/2017 10:08 AM PROCESSING ARCHIVIST Pulse 89 05/20/2017 10:08 AM PROCESSING ARCHIVIST Temperature - - Respiratory Rate - - Oxygen Saturation - - Inhaled Oxygen - - Concentration Weight 69.4 kg (153 lb) 05/20/2017 10:08 AM PROCESSING ARCHIVIST Height 160 cm (5' 3") 05/20/2017 10:08 AM PROCESSING ARCHIVIST Body Mass Index 27.1 05/20/2017 10:08 AM PROCESSING ARCHIVIST in this encounter Procedure Notes * Harika Hsu MD - 05/20/2017 10:00 AM PROCESSING ARCHIVIST Procedure(s): URODYNAMIC STUDIES Urodynamic Study: UROFLOW: Voided [...] Harika Hsu MD - 05/20/2017 10:00 AM PROCESSING ARCHIVIST Associated Order(s): CYSTOSCOPY Procedure(s): DE CYSTOURETHROSCOPY Pre-Procedure Diagnose(s): Urge incontinence Formatting of [...] Procedure Name Priority Date/Time Associated Diagnosis Comments DE CYSTOURETHROSCOPY Routine 05/20/2017 Urge incontinence Results for this 10:00 AM PROCESSING ARCHIVIST procedure are in the results section. in [...]
--- OUTSIDE RECORDS SUMMARY | 2017-07-16 07:18 | XMS REPORT | Encounter Summary ---
Author Author [facility] Organization [facility] Address Unknown Phone Unavailable Care Team Providers Care Bar Supervisor Name Role Phone Apoorva Shane MD Unavailable Edgardo Torres MD Unavailable Amanda Bhandari Unavailable Montana Villasenor MD Unavailable Gilles Ness MD Unavailable Rain Tariq MD Unavailable Harika Hsu MD Unavailable Nayana Mccarty RN Unavailable Unavailable Symone Lee Unavailable Unavailable Sukumar Mondragon APRN PCP Encounter Details Date Type Department Care Team Description 05/20/2017 Hospital Clinlab Rain Tariq MD Urinary tract infection, Encounter [address] [place] [address] [address] [place] [address] [phone] Social History Tobacco Use Types Packs/Day Years [...] mouth at 06/04/2017 mg tablet bedtime daily. trospium(+) (SANCTURA) 20 [...] Laboratory Urine Straight Catheter MAIN LAB [address] [place] [address] in this encounter Visit Diagnoses Diagnosis Urinary tract infection Urinary tract infection, site not specified Admitting Diagnoses Diagnosis Urinary tract infection, site not specified
--- OUTSIDE RECORDS SUMMARY | 2017-07-16 07:18 | XMS REPORT | Encounter Summary ---
Author Author [facility] Organization [facility] Address Unknown Phone Unavailable Care Team Providers Care Acid Bleacher Name Role Phone Apoorva Shane MD Unavailable [...] Department Care Team Description 05/20/2017 Office Visit [facility] Rain Tariq MD Possible urinary tract Physicians - OBGYN [address] infection (Primary Dx) 5TH FLOOR POD C [address] [place] [address] OFFICE BLDG [phone] [place] [address] Social History Tobacco Use Types Packs/Day Years Used Date Former Smoker Cigarettes 42 Quit: 05/29/2015 Smokeless Tobacco: Never Used Alcohol Use Drinks/Week oz/Week Comments No 0 Standard 0.0 drinks or equivalent Sex Assigned at Date Recorded Not on file as of this encounter Last Filed Vital Signs Vital Sign Reading Time Taken Blood Pressure 111/67 05/20/2017 2:30 PM INSPECTOR PUBLICATIONS Pulse 78 05/20/2017 2:30 PM INSPECTOR PUBLICATIONS Temperature - - Respiratory Rate - - Oxygen Saturation - - Inhaled Oxygen - - Concentration Weight 70.8 kg (156 lb) 05/20/2017 2:30 PM INSPECTOR PUBLICATIONS Height 160 cm (5' 3") 05/20/2017 2:30 PM INSPECTOR PUBLICATIONS Body Mass Index 27.63 05/20/2017 2:30 PM INSPECTOR PUBLICATIONS in this encounter Instructions * Patient Instructions - Jaycee Cowan RN - 05/20/2017 12:30 PM INSPECTOR PUBLICATIONS Thank you for visiting the Center for [...] that the general address for [facility] ([address] [place] [address]) has been changed to: Medical Office Building at the [facility] [address] [place] [address] If you are scheduled to see us at the Medical Office Building on the [address] [place] the new address will take you directly to the [facility] [employer] immediately across the street from our [...] 5 business days, please call our office ([phone]). in this encounter Progress Notes * Jaycee Cowan RN - 05/20/2017 12:30 PM INSPECTOR PUBLICATIONS Patient informed by Dr. Tariq to refer back to Dr. Hsu in regards to Hematuria and Urinary Incontinence due to current work-up with Dr. Hsu for surgery. Dr. Tariq will assist patient in an as-needed bases with prolapse issues. * Rain Tariq MD - 05/20/2017 12:30 PM INSPECTOR PUBLICATIONS S: Pt is under the care of [...] neg Urine Ketone POC neg Urine Specific [place] 1.020 POC Urine Blood POC large Urine PH POC 7.0 Urine Protein POC neg Urine Urobilinogen POC neg Urine Nitrite POC neg Urine Leukocytes POC neg Color,UA light yellow Turbidity,UA clear Specimen Performing Laboratory Urine IN CLINIC Narrative Lot# [id number] Expiration: 09/04/2017 in this encounter Visit Diagnoses Diagnosis Possible urinary tract infection - Primary
--- OUTSIDE RECORDS SUMMARY | 2017-07-16 07:18 | XMS REPORT | Encounter Summary ---
Author Author [facility] Organization [facility] Address Unknown Phone Unavailable Care Team Providers Care Search Marketing Analyst Name Role Phone Apoorva Shane MD Unavailable Edgardo Torres MD Unavailable Amanda Bhandari Unavailable Montana Villasenor MD Unavailable Gilles Ness MD Unavailable Rain Tariq MD Unavailable Harika Hsu MD Unavailable Nayana Mccarty RN Unavailable Unavailable Symone Lee Unavailable Unavailable Sukumar Mondragon APRN PCP Reason for Visit * Reason Comments Results Encounter Details Date Type Department Care Team Description 05/23/2017 Telephone [facility] Rain Tariq MD Results Physicians - OBGYN [address] [facility] 5[address] FLOOR POD C [address] [facility] [place] [address] OFFICE BLDG [phone] [place] [address] Social History Tobacco Use Types Packs/Day Years Used Date Former Smoker Cigarettes 42 Quit: 05/29/2015 Smokeless Tobacco: Never Used Alcohol Use Drinks/Week oz/Week Comments No 0 Standard 0.0 drinks or equivalent Sex Assigned at Date Recorded Not on file as of this encounter Miscellaneous Notes * Telephone Encounter - Sol Yanes - 05/23/2017 3:24 PM REGIONAL COORDINATOR LVM notifying patient of negative culture results. Advised to call back with any further questions or concerns. * Telephone Encounter - Roxy Yanesn - 05/23/2017 3:22 PM REGIONAL COORDINATOR ----- Message from Rain Tariq MD sent at 05/23/2017 1:56 PM REGIONAL COORDINATOR ----- Negative urine culture. Please contact patient with normal results. in this encounter Plan of Treatment Not on fileas of this encounter Visit Diagnoses Not on filein this encounter
--- OUTSIDE RECORDS SUMMARY | 2017-07-16 07:18 | XMS REPORT | Encounter Summary ---
Author Author [facility] Organization [facility] Address Unknown Phone Unavailable Care Team Providers Care Manager Managed Care Name Role Phone Apoorva Shane MD Unavailable Edgardo Torres MD Unavailable Amanda Bhandari Unavailable Montana Villasenor MD Unavailable Gilles Ness MD Unavailable Rain Tariq MD Unavailable Harika Hsu MD Unavailable Nayana Mccarty RN Unavailable Unavailable Symone Lee Unavailable Unavailable Sukumar Mondragon APRN PCP Reason for Visit * Reason Comments Results Encounter Details Date Type Department Care Team Description 05/16/2017 Telephone [facility] Ratna Duval MD Results Physicians - Internal [address] [facility] Medicine [address] [address] [address] [facility] [phone] [place] [address] Social History Tobacco Use Types Packs/Day Years Used Date Former Smoker Cigarettes 42 Quit: 05/29/2015 Smokeless Tobacco: Never Used Alcohol Use Drinks/Week oz/Week Comments No 0 Standard 0.0 drinks or equivalent Sex Assigned at Date Recorded Not on file as of this encounter Miscellaneous Notes * Telephone Encounter - Rae Haro RN - 05/16/2017 9:26 AM NURSE CASE MANAGER Ms. Huizar notified of below results/recommendations. She [...] Rae Haro RN - 05/16/2017 9:26 AM NURSE CASE MANAGER ----- Message from Ratna Duval MD sent at 05/15/2017 4:27 PM NURSE CASE MANAGER ----- Miracle, could you call Mrs. Huizar [...] Specimen Performing Laboratory Blood MAIN LAB [address] [place] [address] * SODIUM-URINE RANDOM (05/28/2017 9:30 AM) Component Value Ref Range Sodium, Random 35 MMOL/L Specimen Performing Laboratory Urine [facility] [address] [place] [address] * OSMOLALITY-URINE RANDOM (05/28/2017 9:30 AM) Component Value Ref Range Osmolality-Urine 193 50 - 1,400 MOS/KG Specimen Performing Laboratory Urine [facility] [address] [place] [address] in this encounter Visit Diagnoses Diagnosis Hyponatremia - Primary Hyposmolality and/or hyponatremia
--- OUTSIDE RECORDS SUMMARY | 2017-07-16 07:18 | XMS REPORT | Encounter Summary ---
Author Author [facility] Organization [facility] Address Unknown Phone Unavailable Care Team Providers Care Revenue Cycle Consultant Name Role Phone Apoorva Shane MD [...] Department Care Team Description 05/28/2017 Office Visit [facility] Balbina Garcia MD Urge incontinence of Physicians - Urology [address] urine (Primary Dx); 2ND FLOOR POD A [address] Urinary obstruction [address] [place] [address] OFFICE BLDG [phone] [place] [address] Social History Tobacco Use Types Packs/Day Years Used Date Former Smoker Cigarettes 42 Quit: 05/29/2015 Smokeless Tobacco: Never Used Alcohol Use Drinks/Week oz/Week Comments No 0 Standard 0.0 drinks or equivalent Sex Assigned at Date Recorded Not on file as of this encounter Last Filed Vital Signs Vital Sign Reading Time Taken Blood Pressure 119/66 05/28/2017 8:58 AM MAT CLEANING MACHINE OPERATOR Pulse 79 05/28/2017 8:58 AM MAT CLEANING MACHINE OPERATOR Temperature - - Respiratory Rate - - Oxygen Saturation - - Inhaled Oxygen - - Concentration Weight 71.4 kg (157 lb 6.4 oz) 05/28/2017 8:58 AM MAT CLEANING MACHINE OPERATOR Height 160 cm (5' 3") 05/28/2017 8:58 AM MAT CLEANING MACHINE OPERATOR Body Mass Index 27.88 05/28/2017 8:58 AM MAT CLEANING MACHINE OPERATOR in this encounter Instructions * Patient Instructions - Baltazar Alfred LPN - 05/28/2017 8:45 AM MAT CLEANING MACHINE OPERATOR [facility] Physicians - Urology Pre-Operative Instructions Surgical Procedure: [...] multivitamin, red yeast rice, SOLO-e, saw palmetto, [place] wort, turmeric, valerian root, Vascepa, Vitamin A, Vitamin B complex, Vitamin C, Vitamin E ? You DO NOT need to stop: iron, magnesium, potassium 7 days prior to surgery: ? Stop anti-inflammatory medications such as ibuprofen (Advil, Motrin), naproxen (Aleve), [place], Excedrin, Midol, celecoxib (Celebrex), diclofenac (Voltaren), diflunisal, [...] evenings, nights, weekends, and holidays, contact [facility] mud mixer operator and request they contact the on-call Urology Resident at [phone]. Fingertip Application Method For Estrogen Cream 1. [...] Baltazar Alfred LPN - 05/28/2017 8:45 AM MAT CLEANING MACHINE OPERATOR PVR:140 ML * Balbina Garcia MD - 05/28/2017 8:45 AM MAT CLEANING MACHINE OPERATOR Formatting of this note may be different [...] this visit. Allergies Allergen Reactions Triple Antibiotic [Kmdaa-Yzfjm-Hmibhze-Pramoxine] RASH Ibuprofen Social History Social History Marital [...] Judgment and thought content normal. Vitals reviewed. [id number] Assessment and Plan: Ilya Daniel MD PGY-3 Urology in this encounter Plan of Treatment Not on fileas of this encounter Results * CULTURE-URINE W/SENSITIVITY (05/28/2017 9:30 AM) Component Value Ref Range Battery Name URINE CULTURE Specimen Description URINE, CLEAN CATCH Special Requests NONE Culture NO GROWTH Report Status FINAL 05/29/2017 Specimen Performing Laboratory Urine - Urine,Clean Catch [facility] [address] [place] [address] * POC URINE DIPSTICK MANUAL READ (05/28/2017) Component Value Ref Range Urine Glucose POC NEG Urine Bilirubin POC NEG Urine Ketone POC NEG Urine Specific [place] 1.000 POC Urine Blood POC TRACE Urine PH POC 5.0 Urine Protein POC NEG Urine Urobilinogen POC 0.2 Urine Nitrite POC NEG Urine Leukocytes POC NEG Color,UA YELLOW Turbidity,UA CLEAR Specimen Performing Laboratory Urine IN CLINIC in this encounter Visit Diagnoses Diagnosis Urge incontinence of urine - Primary Urge incontinence Urinary obstruction Urinary obstruction, unspecified
--- OUTSIDE RECORDS SUMMARY | 2017-07-16 07:18 | XMS REPORT | Encounter Summary ---
Author Author [facility] Organization [facility] Address Unknown Phone Unavailable Care Team Providers Care Welding Machine Operator Helper Gas Name Role Phone Apoorva Shane MD Unavailable [...] MED OFFICE BLDG Urgency of [address] [place] [address] URD/CYSTO-HSU [address] Phone: P rocedures [phone] RI Fax: CYSTOURETHROSCOP [phone] Y RI EMG STDS ANAL/URTL SPHNCTR OTH/THN NDL RI VOID PRESSURE STUDIES INTRAABDOMINAL RI COMPLEX CYSTOMETROGRAM VOIDING PRESSURE STUDIES RI COMPLEX UROFLOMETRY CLINICAL SUPPORT Encounter Details Date Type Department Care Team Description 05/20/2017 Clinical [facility] Urge incontinence Support Physicians - Urology (Primary Dx) 2ND FLOOR POD A [address] [facility] [place] [address] Social History Tobacco Use Types Packs/Day Years Used Date Former Smoker Cigarettes 40 Quit: 05/29/2015 Smokeless Tobacco: Never Used Alcohol Use Drinks/Week oz/Week Comments No 0 Standard 0.0 drinks or equivalent Sex Assigned at Date Recorded Not on file as of this encounter Last Filed Vital Signs Vital Sign Reading Time Taken Blood Pressure 114/67 05/20/2017 8:15 AM NOZZLE WORKER Pulse 89 05/20/2017 8:15 AM NOZZLE WORKER Temperature - - Respiratory Rate - - Oxygen Saturation - - Inhaled Oxygen - - Concentration Weight 69.4 kg (153 lb) 05/20/2017 8:15 AM NOZZLE WORKER Height 160 cm (5' 3") 05/20/2017 8:15 AM NOZZLE WORKER Body Mass Index 27.1 05/20/2017 8:15 AM NOZZLE WORKER in this encounter Plan of Treatment Not on fileas of this encounter Procedures Procedure Name Priority Date/Time Associated Diagnosis Comments URODYNAMIC STUDIES Routine 05/20/2017 Urge incontinence 12:00 AM NOZZLE WORKER in this encounter Results * POC URINE DIPSTICK MANUAL READ (05/20/2017) Component Value Ref Range Urine Glucose POC neg Urine Bilirubin POC neg Urine Ketone POC neg Urine Specific [place] 1.000 POC Urine Blood POC Moderate Urine PH POC 5.0 Urine Protein POC neg Urine Urobilinogen POC neg Urine Nitrite POC neg Urine Leukocytes POC neg Color,UA yellow Turbidity,UA clear Specimen Performing Laboratory Urine IN CLINIC in this encounter Visit Diagnoses Diagnosis Urge incontinence - Primary
--- OUTSIDE RECORDS SUMMARY | 2017-07-16 07:18 | XMS REPORT | Encounter Summary ---
Author Author [facility] Organization [facility] Address Unknown Phone Unavailable Care Team Providers Care Hatchery Manager Name Role Phone Apoorva Shane MD Unavailable Edgardo Torres MD Unavailable Amanda Bhandari Unavailable Montana Villasenor MD Unavailable Gilles Ness MD Unavailable Rain Tariq MD Unavailable Harika Hsu MD Unavailable Nayana Mccarty RN Unavailable Unavailable Symone Lee Unavailable Unavailable Sukumar Mondragon APRN PCP Encounter Details Date Type Department Care Team Description 05/15/2017 Hospital Clinlab Alvaro Duval MD Hematuria, unspecified Encounter [address] [place] [address] [address] [place] [address] [phone] Social History Tobacco Use Types Packs/Day Years [...] MOS/KG Specimen Performing Laboratory MAIN LAB [address] [place] [address] * SODIUM-URINE RANDOM (05/15/2017 11:14 AM) Component Value Ref Range Sodium, Random 14 MMOL/L Specimen Performing Laboratory MAIN LAB [address] [place] [address] * PROTEIN/CR RATIO,UR RAN (05/15/2017 11:14 AM) Component Value Ref Range Protein, Random 5 MG/DL Creatinine, Random 26 MG/DL Protein/CR ratio 0.2 Specimen Performing Laboratory Urine MAIN LAB [address] [place] [address] * COMPREHENSIVE METABOLIC PANEL (05/15/2017 11:00 AM) [...] Specimen Performing Laboratory Blood MAIN LAB [address] [place] [address] * MAGNESIUM (05/15/2017 11:00 AM) Component Value Ref Range Magnesium 1.7 1.6 - 2.6 mg/dL Specimen Performing Laboratory Blood MAIN LAB [address] [place] [address] * CBC AND DIFF (05/15/2017 11:00 AM) [...] Performing Laboratory Blood [facility] MAIN LAB [address] [place] [address] in this encounter Visit Diagnoses Diagnosis Hematuria, unspecified type Hypo-osmolality and hyponatremia Hyposmolality and/or hyponatremia Hyponatremia Hyposmolality and/or hyponatremia Admitting Diagnoses Diagnosis Hematuria, unspecified
--- OUTSIDE RECORDS SUMMARY | 2017-07-16 07:19 | XMS REPORT | Encounter Summary ---
Author Author [facility] Organization [facility] Address Unknown Phone Unavailable Care Team Providers Care Legal Assistant Name Role Phone Apoorva Shane MD Unavailable Edgardo Torres MD Unavailable Amanda Bhandari Unavailable Montana Villasenor MD Unavailable Gilles Ness MD Unavailable Rain Tariq MD Unavailable Harika Hsu MD Unavailable Nayana Mccarty RN Unavailable Unavailable Symone Lee Unavailable Unavailable Sukumar Mondragon APRN PCP Reason for Visit * Reason Comments Chronic Kidney Disease Encounter Details Date Type Department Care Team Description 05/15/2017 Office Visit [facility] Alvaro Duval MD Hematuria, unspecified Physicians - Internal [address] type (Primary Dx); Medicine [address] Hyponatremia; 4TH [place] [address] Hypotension, unspecified [address] MED [phone] hypotension [place] [address] Social History Tobacco Use Types Packs/Day Years Used Date Former Smoker Cigarettes 40 Quit: 05/29/2015 Smokeless Tobacco: Never Used Alcohol Use Drinks/Week oz/Week Comments No 0 Standard 0.0 drinks or equivalent Sex Assigned at Date Recorded Not on file as of this encounter Last Filed Vital Signs Vital Sign Reading Time Taken Blood Pressure 94/62 05/15/2017 9:52 AM TRAINING AND DEVELOPMENT SPECIALIST Pulse 94 05/15/2017 9:52 AM TRAINING AND DEVELOPMENT SPECIALIST Temperature 36.7 C (98 F) 05/15/2017 9:50 AM TRAINING AND DEVELOPMENT SPECIALIST Respiratory Rate - - Oxygen Saturation - - Inhaled Oxygen - - Concentration Weight 71.5 kg (157 lb 9.6 oz) 05/15/2017 9:50 AM TRAINING AND DEVELOPMENT SPECIALIST Height 162.6 cm (5' 4") 05/15/2017 9:50 AM TRAINING AND DEVELOPMENT SPECIALIST Body Mass Index 27.05 05/15/2017 9:50 AM TRAINING AND DEVELOPMENT SPECIALIST in this encounter Progress Notes * Alvaro Duval MD - 05/15/2017 10:00 AM TRAINING AND DEVELOPMENT SPECIALIST Formatting of this note may be [...] note she was seen last month at [facility] by RIBBON WINDERMarcelo [place] for depression and her zoloft was [...] her Aflutter issues. I think that her spice grinder should decide on that. Of interest her [...] Performing Laboratory Urine [facility] MAIN LAB [address] [place] [address] * COMPREHENSIVE METABOLIC PANEL (05/15/2017 11:00 AM) [...] Performing Laboratory Blood [facility] MAIN LAB [address] [place] [address] * MAGNESIUM (05/15/2017 11:00 AM) Component Value Ref Range Magnesium 1.7 1.6 - 2.6 mg/dL Specimen Performing Laboratory Blood [facility] MAIN LAB [address] [place] [address] * CBC AND DIFF (05/15/2017 11:00 AM) [...] Specimen Performing Laboratory Blood MAIN LAB [address] [place] [address] * POC URINE DIPSTICK AUTO READ (05/15/2017) Component Value Ref Range Urine Glucose POC norm Urine Bilirubin POC neg Urine Ketone POC neg Urine Specific [place] 1.000 POC Urine Blood POC 50 Urine PH POC 6.5 Urine Protein POC neg Urine Urobilinogen POC norm Urine Nitrite POC neg Urine Leukocytes POC neg Color,UA Turbidity,UA Specimen Performing Laboratory Urine IN CLINIC in this encounter Visit Diagnoses Diagnosis Hematuria, unspecified type - Primary Hyponatremia Hyposmolality and/or hyponatremia Hypotension, unspecified hypotension type
[2017-07-16] MEDS: LACTATED RINGERS 1,000 ML IV PRN ×2 (07:20→08:30)
--- NOTE | 2017-07-16 07:22 | Progress Note-Pre Operative ---
Pre-Operative Progress Note H&P Reviewed The H&P was reviewed, patient examined and no changes noted. Date Seen by Provider: Jul 16, 2017 Time Seen by Provider: 07:21 Date H&P Reviewed: Jul 16, 2017 Time H&P Reviewed: 07:21 Pre-Operative Diagnosis: left knee primary osteoarthritis ERIC BROOKE MD Jul 16, 2017 07:22
--- NOTE | 2017-07-16 07:23 | Progress Note-Post Operative ---
Post-Operative Progess Note Surgeon (s)/Shampooer (s) Surgeon ERIC BROOKE MD Shampooer: vincenzo Harrison Pre-Operative Diagnosis left knee primary osteoarthritis Post-Operative Diagnosis left knee primary osteoarthritis Procedure & Operative Findings Date of Procedure 07/16/17 Procedure Performed/Findings left total knee arthroplasty Anesthesia Type GETA Estimated Blood Loss Estimated blood loss (mL): minimal Specimens/Packing Specimens Removed none Packing: none ERIC BROOKE MD Jul 16, 2017 07:23
[2017-07-16 07:25] VITALS: BP 98/70
[2017-07-16] MEDS ORDERED: OXYC-197 PO (07:25)
--- NOTE | 2017-07-16 07:27 | D/C HH Face to Face Order ---
D/C Face to Face Orders Instructions for Patient Patient Instructions/FollowUp: three weeks Physician to follow Patient: three weeks Discharge Diet for Home: ADA Diet Patient Data-Allergies,Ht & Wt Patient Allergies: Coded Allergies: bacitracin (Verified Allergy, Intermediate, "I BREAK OUT IN A RASH ALL OVER.", 08/26/16) neomycin (Verified Allergy, Intermediate, "I BREAK OUT IN A RASH ALL OVER. ", 08/26/16) polymyxin B (Verified Allergy, Intermediate, "I BREAK OUT IN A RASH ALL OVER.", 08/26/16) Penicillins (Verified Allergy, Unknown, NOT SURE KIND REACTION, 08/26/16) ibuprofen (Verified Allergy, Unknown, 07/04/17) Height (Feet): 5 Height (Inches): 3.00 Weight (Pounds): 158 Weight (Ounces): 0.0 Home Health Need/Face to Face Date of Face to Face: Jul 16, 2017 Clinical Findings: Instability, Muscle weakness, Pain with ambulation, Unsteady gait I have seen Pt [id number]: Yes Discharged To: Home Diagnosis/Conditions: left total knee arthroplsty Patient is Homebound due to: Vivian fall risk due to instabilty, Pain w/ ambulation Homebound Status Due to the above stated illness, injury or surgical procedure (medical condition or diagnosis) and associated clinical findings, the patient is homebound because of his/her inability to leave home except with aid of a supportive device and/or person AND leaving the home requires a considerable and taxing effort or is medically contraindicated. Pt req the following assistanc: [facility] Nursing Orders Home Health Services Order: Physical Therapy-Evaluate & Treat Therapy Orders Therapy Orders: PT to assess for OT Therapy Specific Orders: Eval assistive deivces, Teach enviro modifications/ safety, Gait training, Increase strength/endurance, Restore ROM Certify Stmt I certify that this patient is under my care and that I, a nurse practitioner or a physician; a technical support assistant working with me, had a face to face encounter that - meets the physician face to face encounter requirements with this patient as dated. ERIC BROOKE MD Jul 16, 2017 07:27
[2017-07-16] MEDS ORDERED: ONDANSETRON 4 MG/2 ML (SDV) Z0FRAN ONE (07:29)
[2017-07-16] MEDS ORDERED: LIDOCAINE 2% 20 ML (XYLOCAINE) VIAL ONE (07:29)
[2017-07-16] MEDS ORDERED: DEXAMETHASONE 10 MG/ML (DECADRON) 1 ML VIAL ONE (07:29)
[2017-07-16] MEDS ORDERED: fentaNYL INJECTION 100 MCG/2 ML AMP ONE ×2 (07:29→08:18)
[2017-07-16] MEDS ORDERED: PROPOFOL INJECTION 50 ML IV ONE (07:29)
[2017-07-16] MEDS ORDERED: ACETAMINOPHEN 325 MG TABLET PO PRN (07:30)
[2017-07-16] MEDS ORDERED: diphenhydrAMINE 50 MG/ML INJ (BENADRYL) IVP PRN (07:30)
[2017-07-16] MEDS ORDERED: FAMOTIDINE 20MG/2ML IV (PEPCID) ONE (07:33)
[2017-07-16] MEDS ORDERED: RT-ALBUTEROL SULF 2.5 MG/3 ML PRE-MIX VIAL ONE (07:36)
[2017-07-16] MEDS ORDERED: ROCURONIUM 10 MG/ML 5 ML SYRINGE IV ONE ×2 (07:42→08:26)
--- OUTSIDE RECORDS SUMMARY | 2017-07-16 07:44 | XMS REPORT ---
Author Author MACIEL Tan Organization [facility] Address Unknown Care Team Providers Care Special Agent Name Role Phone MACIEL Tan Unavailable PROBLEMS Type Condition ICD9-CM Code XHY86-EO Code Onset Dates Condition Status SNOMED Code Problem Barretts esophagus K22.70 Active 230562289 Problem Coronary artery disease involving [place] coronary artery of [place] 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 I25.118 Active 8129511008725 Problem Colon polyp K63.5 Active 64999199 Problem History of common bile duct surgery Z98.89 Active 089496731 Problem 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 Active 28207065 Problem Bilateral low back pain without sciatica M54.5 Active 947172747 Problem Screening breast examination Z12.39 Active 800307362 Problem Postmenopausal Z78.0 Active 49839368 Problem Osteopenia M85.80 Active 523465741 Problem Crohn''s disease without complication, unspecified gastrointestinal tract location K50.90 Active 86418431 Problem Cigarette nicotine dependence without complication F17.210 Active 57518546 Problem Type 2 diabetes mellitus with diabetic peripheral angiopathy without gangrene E11.51 Active 162414782 Problem Vascular dementia without behavioral disturbance F01.50 Active [id number] Problem Unspecified atherosclerosis of [place] arteries of extremities, unspecified extremity I70.209 Active 081096715818195 Problem Other chronic pancreatitis K86.1 Active 973357679 Problem Chronic atrial fibrillation I48.2 Active 345096499 Problem Diabetic polyneuropathy associated with type 2 diabetes mellitus E11.42 Active 98126607 Problem Controlled type 2 diabetes mellitus without complication, without long -term current use of insulin E11.9 Active 670715953 Problem Xeroderma Q80.9 Active 71678864 Problem Dementia without behavioral disturbance, unspecified dementia type F03.90 Active 24569219 Problem Gastroparesis K31.84 Active 995908322 Problem Arthritis M19.90 Active 0162784 Problem Osteoporosis M81.0 Active 41382923 Problem Atherosclerotic heart disease of [place]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 I25.118 Active 5381445607654 Problem Hyperlipidemia E78.5 Active 43821255 Problem Chronic obstructive pulmonary disease with acute lower respiratory infection J44.0 Active 190746435 Problem Essential tremor G25.0 Active 72158972 Problem Type 2 diabetes mellitus with diabetic neuropathy, without long-term current use of insulin E11.40 Active 57948373 Problem Atherosclerosis of [place] artery of both lower extremities with intermittent claudication I70.213 Active 165077048392268 Problem Paroxysmal atrial fibrillation I48.0 Active 307427384 Problem Migraine without aura and with status migrainosus, not intractable G43.001 Active 465463679 Problem Generalized anxiety disorder F41.1 Active 133092733 Problem Gastroesophageal reflux disease, esophagitis presence not specified K21.9 Active 796493288 Problem Major depressive disorder, recurrent episode, moderate F33.1 Active 333961693 Problem Unspecified psychosis F29 Active 60574696 Problem Chronic pain syndrome G89.4 Active 656996812 Problem Migraine without aura and without status migrainosus, not intractable G43.009 Active 480428799 Problem COPD (chronic obstructive pulmonary disease) J44.9 Active 76273124 Problem Bipolar affective disorder, currently depressed, moderate F31.32 Active 822783514 Problem Cervicalgia M54.2 Active 1841782481341 Problem Acute exacerbation of chronic obstructive pulmonary disease (COPD) J44.1 Active 952734567 Problem Postconcussion syndrome F07.81 Active 73333029 Problem Chronic fatigue R53.82 Active 57719684 ALLERGIES No Information ENCOUNTERS Encounter Location Date Diagnosis [facility] [address], [place] [address] Jul, [facility] [address], [place] [address] 48[address] Jul, [facility] [id number] [place] [address] 27296- 1244 Jun, Diabetic polyneuropathy associated with type 2 diabetes mellitus E11.42 [facility] [address], [place] [address] 12[address] Jun, Diabetic polyneuropathy associated with type 2 diabetes mellitus E11.42 ; Coronary artery disease involving [place] coronary artery of [place] 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 I25.118 and Paroxysmal atrial fibrillation I48.0 [facility] [id number] [place] [address] 69464- 5846 27 Jun, 2017 [facility] [id number] [place] [address] 60369- 8812 Jun, [facility] [id number] [place] [address] 32330- 9145 Jun, Gastroenteritis K52.9 [facility] [id number] [place] [address] 12239- 1876 Jun, Gastroenteritis K52.9 [facility] [id number] [place] [address] 86857- 9571 Jun, [facility] [id number] [place] [address] 02175- 8326 Jun, [facility] [id number] [place] [address] 87897- 0186 Jun, Sprain of right ankle, unspecified ligament, initial encounter S93.401A ; Type 2 diabetes mellitus with diabetic neuropathy, without long-term current use of insulin E11.40 ; Atherosclerosis of [place] artery of both lower extremities with intermittent claudication I70.213 ; Atherosclerotic heart disease of [place]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 I25.118 ; Chronic atrial fibrillation I48.2 and Crohn''s disease without complication, unspecified gastrointestinal tract location K50.90 [facility] [address], [place] [address] 17 Jun, 2017 Cough R05 and Chronic obstructive pulmonary disease with acute lower respiratory infection J44.0 [facility] [id number] [place] [address] 94777- 6046 16 Jun, 2017 [facility] [id number] [place] [address] 75150- 9360 15 Jun, 2017 Coughing R05 ; Unspecified atherosclerosis of [place] arteries of extremities, unspecified extremity I70.209 ; Type 2 diabetes mellitus with diabetic peripheral angiopathy without gangrene E11.51 ; Crohn''s disease without complication, unspecified gastrointestinal tract location K50.90 ; Other chronic pancreatitis K86.1 and Chronic atrial fibrillation I48.2 [facility] [address], [place] [address] Jun, [facility] [id number] [place] [address] 63320- 7852 Jun, Bipolar affective disorder, currently depressed, moderate F31.32 ; Vascular dementia without behavioral disturbance F01.50 and Generalized anxiety disorder F41.1 [facility] [id number] [place] [address] 41565- 2065 May, Generalized anxiety disorder F41.1 [facility] [id number] [place] [address] 41405- 9582 May, [facility] [id number] [place] [address] 88466- 1693 May, [facility] [id number] [place] [address] 34801- 8002 May, Coughing R05 [facility] [id number] [place] [address] 49884- 1772 May, [facility] [address] [place] [address] 38618- 1248 May, Bipolar affective disorder, currently depressed, moderate F31.32 ; Vascular dementia without behavioral disturbance F01.50 and Generalized anxiety disorder F41.1 [facility] [address] [place] [address] 46524- 8725 Apr, Generalized anxiety disorder F41.1 [facility] [id number] [place] [address] 85086- 4341 Apr, [facility] [address] [place] [address] 73231- 8488 Apr, Vascular dementia without behavioral disturbance F01.50 ; Generalized anxiety disorder F41.1 and Bipolar affective disorder, currently depressed, moderate F31.32 [place] [address] 31172- 6015 Apr, Generalized anxiety disorder F41.1 [facility] [address] 81192 -7625 Apr, Cough R05 and Acute exacerbation of chronic obstructive pulmonary disease (COPD) J44.1 [place] [address] 26080- 1529 Apr, [facility] [address] 490791 -6867 Mar, Cough R05 and Cigarette nicotine dependence without complication F17.210 [place] [address] 91377- 8569 Mar, [place] [address] 29598- 0349 Feb, Generalized anxiety disorder F41.1 ; Major depressive disorder, recurrent episode, moderate F33.1 ; Vascular dementia without behavioral disturbance F01.50 and Unspecified psychosis F29 [place] [address] 43829- 4728 Feb, [place] [address] 67629- 2722 Feb, [place] [address] 11561- 6346 Feb, Generalized anxiety disorder F41.1 [place] [address] 38459- 8409 Feb, Generalized anxiety disorder F41.1 [place] [address] 10990- 7936 06 Feb, 2017 Dizziness R42 ; Chronic fatigue R53.82 ; Postconcussion syndrome F07.81 ; Fall, initial encounter W19.XXXA and Disorientation R41.0 [place] [id number] [place] [address] 73083- 5629 Feb, Postconcussion syndrome F07.81 ; Injury of head, initial encounter S09.90XA ; Fall, initial encounter W19.XXXA ; Disorientation R41.0 and Acute cystitis with hematuria N30.01 [place] [address] 84691- 2895 Jan, Gastroesophageal reflux disease, esophagitis presence not specified K21.9 ; Post-menopausal Z78.0 and Migraine without aura and without status migrainosus, not intractable G43.009 [place] [address] 64925- 1997 Jan, [place] [address] 81634- 1551 Jan, Generalized anxiety disorder F41.1 ; Major depressive disorder, recurrent episode, moderate F33.1 ; Vascular dementia without behavioral disturbance F01.50 and Unspecified psychosis F29 [place] [address] 17497- 9530 Jan, Pneumonia of left lower lobe due to infectious organism J18.1 [place] [id number] [place] [address] 87616- 3405 Jan, Migraine without aura and with status migrainosus, not intractable G43.001 [facility] [id number] [place] [address] 72987 -7953 Jan, Migraine without aura and without status migrainosus, not intractable G43.009 [place] [address] 62083- 1717 Dec, Hematoma T14.8 [place] [address] 20661- 6977 Dec, [facility] [address] 04372 -9460 Nov, Fatigue, unspecified type R53.83 [facility] [address], [place] [address]- 2160 Nov, Scabies B86 and Coronary artery disease involving [place] coronary artery of [place] 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 I25.118 [facility] [address], [place] [address]- 6701 Nov, [facility] [id number] [place] [address] 09830- 5663 Nov, [facility] [id number] [place] [address] 03856- 5845 Oct, [facility] [id number] [place] [address] 85698- 5484 Oct, Generalized anxiety disorder F41.1 and Major depressive disorder, recurrent episode, moderate F33.1 [place] [id number] [place] [address] 58304- 6811 Oct, Cramp of both lower extremities R25.2 [place] [id number] [place] [address] 10514- 7975 Oct, Leg cramps R25.2 [facility] [id number] [place] [address] 48911- 0386 Oct, Chronic pain syndrome G89.4 [facility] [address] [place] [address] 75960- 0617 Oct, [facility] [address], [place] [address]- 7175 Oct, [facility] [id number] [place] [address] 11814- 8983 Oct, Routine gynecological examination Z01.419 and Screening for breast cancer Z12.31 [facility] [id number] [place] [address] 89185- 3873 Sep, Diarrhea R19.7 [facility] [id number] [place] [address] 11768- 4763 Sep, Back pain M54.9 [place] [address] 25047- 0337 Sep, [facility] [id number] [place] [address] 37125- 9323 Sep, [facility] [address] 53448 -1738 August, Xeroderma Q80.9 [place] [address] 99116- 8616 August, Dementia without behavioral disturbance, unspecified dementia type F03.90 [place] [address] 14647- 9094 August, Chronic pain syndrome G89.4 [place] [address] 36746- 8716 August, [place] [address] 97973- 3536 August, Hyperlipidemia E78.5 ; Other fatigue R53.83 and Other specified hypotension I95.89 [facility] [id number] [place] [address] 27555 -6272 August, Dysuria R30.0 ; Other fatigue R53.83 and Other specified hypotension I95.89 [place] [id number] [place] [address] 88288- 7426 August, [place] [address] [place] [address] 83528- 2801 Jul, Pain in left knee M25.562 and Gastroenteritis K52.9 [place] [address] [place] [address] 99479- 2018 Jul, [place] [id number] [place] [address] 45009- 6740 Jul, Diarrhea R19.7 [facility] [id number] [place] [address] 07066 -2941 Jul, Spider bite, accidental or unintentional, initial encounter T63.301A [facility] [id number] [place] [address] 21613- 9296 Jul, Primary osteoarthritis of right knee M17.11 and Arthritis M19.90 [place] [address] 70995- 8792 Jul, Generalized anxiety disorder F41.1 and Major depressive disorder, recurrent episode, moderate F33.1 [place] [address] 70412- 6521 07 Jul, 2016 Type 2 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 and Temporal headache R51 [place] [address] 74521- 9012 Jul, Back pain M54.9 [place] [address] 59865- 9087 Jul, [facility] [address] 43982- 2705 Jul, [place] [address] 89443- 6499 30 Jun, 2016 Nausea R11.0 [facility] [id number] [place] [address] 34496 -3031 Jun, Acute suppurative otitis media of both ears without spontaneous rupture of tympanic membranes, recurrence not specified H66.003 and COPD exacerbation J44.1 [place] [id number] [place] [address] 51957- 3613 Jun, Generalized anxiety disorder F41.1 [facility] [address] 94954- 3735 16 Jun, 2016 [facility] [address] 10946 -8907 Jun, [facility] [id number] [place] [address] 55744 -8496 13 Jun, 2016 Shortness of breath R06.02 and COPD exacerbation J44.1 [place] [address] 86034- 3913 10 Jun, 2016 Eczema, unspecified type L30.9 [facility] [address] 23754- 8898 Jun, [facility] [address] 02209- 8743 May, [place] [address] 79228- 7751 May, Muscle cramping R25.2 [place] [address] 18740- 4677 May, [place] [address] 57473- 5270 Apr, Diarrhea R19.7 [place] [address] 40067- 4723 Apr, [place] [address] 12436- 7552 Apr, Chronic pain syndrome G89.4 [place] [address] 53074- 3003 Apr, Cramp of both lower extremities R25.2 and Vascular dementia without behavioral disturbance F01.50 [place] [id number] [place] [address] 29813- 2126 Apr, Type 2 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 and Cigarette nicotine dependence without complication F17.210 [place] [address] [place] [address] 43390- 8163 Mar, Generalized anxiety disorder F41.1 [place] [address] 31402- 3443 Feb, Generalized anxiety disorder F41.1 and Major depressive disorder, recurrent episode, moderate F33.1 [place] [id number] [place] [address] 16542- 4182 Feb, [facility] [id number] [place] [address] 76738 -3274 Feb, Dysuria R30.0 and Acute cystitis with hematuria N30.01 [place] [address] [place] [address] 10961- 0183 Jan, [place] [address] [place] [address] 80786- 0413 Jan, [place] [id number] [place] [address] 11041- 1645 Jan, [place] [address] [place] [address] 20313- 6266 Jan, [facility] [id number] [place] [address] 13505 -8283 Jan, Wasp sting, accidental or unintentional, initial encounter T63.461A [place] [address] [place] [address] 47908- 7092 Jan, Encounter for immunization Z23 [place] [address] [place] [address] 66164- 7393 Jan, [place] [address] [place] [address] 35416- 8731 Jan, [place] [address] [place] [address] 22982- 2947 Dec, Generalized anxiety disorder F41.1 and Major depressive disorder, recurrent episode, moderate F33.1 [place] [address] [place] [address] 42184- 3954 Dec, Routine gynecological examination Z01.419 ; Postmenopausal Z78.0 ; Screening breast examination Z12.39 ; Osteopenia M85.80 and Breast cancer screening Z12.39 [facility] [address], [place] [address]- 3871 20 Dec, 2015 [facility] [address], [place] [address]- 6174 Dec, [facility] [address], [place] [address]- 7780 Dec, [facility] [id number] [place] [address] 51357- 0055 16 Dec, 2015 [facility] [address], [place] [address]- 0243 14 Dec, 2015 [facility] [address], [place] [address]- 0064 Dec, [facility] [address], [place] [address]- 7529 Nov, [facility] [address], [place] [address] -9581 Nov, Cough R05 ; Other viral agents as the cause of diseases classified elsewhere B97.89 and Acute upper respiratory infection, unspecified J06.9 [facility] [address], [place] [address]- 5446 Nov, [facility] [address], [place] [address]- 6172 Nov, [facility] [address], [place] [address]- 0140 Nov, [facility] [address], [place] [address]- 8510 Nov, [facility] [address], [place] [address]- 3827 Nov, [facility] [address], [place] [address]- 6785 Oct, [facility] [address] [address]- 7158 18 Oct, 2015 [facility] [address] [place] [address] 99579- 2679 14 Oct, 2015 [facility] [id number] [place] [address] 11756- 3011 Oct, Chronic pain syndrome G89.4 [facility] [address] [place] [address] 30498- 9476 Sep, Generalized anxiety disorder F41.1 and Major depressive disorder, recurrent episode, moderate F33.1 [facility] [id number] [place] [address] 44007- 6176 Sep, [place] [id number] [place] [address] 98897- 9569 Sep, [place] [address] [place] [address] 69054- 1409 Sep, Generalized anxiety disorder F41.1 [place] [address] [place] [address] 78095- 9102 13 Sep, 2015 Cramp of both lower extremities R25.2 and Cervicalgia M54.2 [place] [address] [place] [address] 61372- 9247 06 Sep, 2015 Generalized anxiety disorder F41.1 [place] [id number] [place] [address] 98193- 4259 Sep, [facility] [address] [place] [address] 94565 -9369 August, Rash R21 ; Itching L29.9 and Allergic response, subsequent encounter T78.40XD [facility] [address] [place] [address] 32554- 6087 August, Primary insomnia F51.01 [facility] [address] [place] [address] 92985 -0631 August, Rash R21 ; Itching L29.9 and Allergic response, initial encounter T78.40XA [facility] [address] [address]- 9488 August, [facility] [id number] [place] [address] 77977- 3139 August, Cramp of both lower extremities R25.2 [facility] [address] [place] [address] 63967- 5773 August, Back pain M54.9 [facility] [id number] [place] [address] 98837- 8460 August, [facility] [id number] [place] [address] 02295- 7167 August, [facility] [address] [place] [address] 99869 -7143 August, Cramp of both lower extremities R25.2 [facility] [id number] [place] [address] 18702- 7667 August, [facility] [address] [place] [address] 71961- 2867 August, Syncope R55 ; Paroxysmal atrial fibrillation I48.0 ; Dementia without behavioral disturbance, unspecified dementia type F03.90 and Chronic pain syndrome G89.4 [place] [address] [place] [address] 17610- 1189 August, Type 2 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 and Syncope R55 [facility] [address] [place] [address] [address]- 4685 Jul, [facility] [id number] [place] [address] 28265- 1739 Jul, [facility] [id number] [place] [address] 07601- 4599 Jul, [facility] [id number] [place] [address] 79587- 8382 Jul, [facility] [address], [place] [address] 8021 Jul, [facility] [address] [place] [address] 88352- 9261 19 Jul, 2015 UTI (urinary tract infection) N39.0 [facility] [address], [place] [address] 3694 18 Jul, 2015 [facility] [address] [place] [address] 27738- 2949 18 Jul, 2015 Major depressive disorder, recurrent episode, moderate F33.1 and Generalized anxiety disorder F41.1 [facility] [address] [place] [address] 95632- 1008 Jul, Generalized anxiety disorder F41.1 [facility] [id number] [place] [address] 88931- 9701 Jul, Diarrhea R19.7 [facility] [address], [place] [address] 1179 Jul, [facility] [address], [place] [address]- 3293 Jun, [facility] [id number], [place] [address]- 8255 Jun, Eczema L30.9 [facility] [address], [place] [address]- 5990 Jun, [facility] [address], [place] [address]- 1680 17 Jun, 2015 COPD (chronic obstructive pulmonary disease) J44.9 [facility] [address], [place] [address]- 5205 16 Jun, 2015 [facility] [address], [place] [address]- 8572 02 Jun, 2015 Major depressive disorder, recurrent episode, moderate F33.1 and Generalized anxiety disorder F41.1 [facility] [address], [place] [address]- 2222 May, [facility] [address] [place] [address] 90903- 3824 May, UTI (urinary tract infection) N39.0 [facility] [address], [place] [address]- 6676 May, [facility] [address] [place] [address] 57560- 1714 May, [facility] [id number] [place] [address] 36581- 0126 May, [facility] [id number] [place] [address] 04621- 8841 May, [facility] [address] [place] [address] 83436- 7836 Apr, Major depressive disorder, recurrent episode, moderate F33.1 and Generalized anxiety disorder F41.1 [facility] [address], [place] [address]- 3299 Apr, COPD (chronic obstructive pulmonary disease) J44.9 [facility] [address], [place] [address]- 6813 Apr, [facility] [address], [place] [address]- 4933 Apr, Atrial flutter I48.92 [facility] [address], [place] [address]- 1499 Apr, [facility] [address] [place] [address] 69652- 4511 Apr, [facility] [address], [place] [address]- 0011 Mar, [facility] [address], [place] [address]- 2656 Mar, [facility] [address], [place] [address]- 4843 Mar, [facility] [id number] [place] [address] 16735- 3747 Mar, Hyperlipidemia E78.5 ; Type 2 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 ; Major depressive disorder, recurrent episode, moderate F33.1 and Chronic pain syndrome G89.4 [facility] [id number] [place] [address] 44018- 5452 16 Mar, 2015 [facility] [id number] [place] [address] 94149- 0101 Mar, [facility] [id number] [place] [address] 35291- 8711 Mar, [facility] [id number] [place] [address] 76373- 5043 Mar, [facility] [id number] [place] [address] 53401- 0951 Feb, COPD (chronic obstructive pulmonary disease) J44.9 and Back pain M54.9 [facility] [id number] [place] [address] 68911- 1255 Feb, [facility] [address] [place] [address] 39735- 0950 Feb, [facility] [id number] [place] [address] 05781- 9925 Feb, [facility] [id number] [place] [address] 57718- 3004 Feb, [facility] [id number] [place] [address] 49128- 1028 Feb, [facility] [id number], [place] [address]- 5489 Feb, [facility] [id number] [place] [address] 00469- 6555 Feb, [facility] [id number] [place] [address] 25119- 7113 Feb, [facility] [id number] [place] [address] 22201- 0544 Feb, Diabetes E11.9 ; Back pain M54.9 and COPD (chronic obstructive pulmonary disease) J44.9 [facility] [address] 26092- 0858 Jan, [facility] [id number] [place] [address] 34410- 7793 Jan, Major depression, recurrent F33.9 and Generalized anxiety disorder F41.1 [facility] [id number] [place] [address] 89389- 5408 Jan, Chronic pain G89.29 [facility] [address] 11778- 6151 Jan, [facility] [id number] [place] [address] 19440- 5919 Jan, [facility] [id number] [place] [address] 44568- 3835 Jan, [facility] [id number] [place] [address] 87697- 5978 Jan, [facility] [id number] [place] [address] 80467- 8403 Jan, Nicotine dependence F17.200 [facility] [id number] [place] [address] 36287- 9290 Jan, Nicotine dependence F17.200 and Back pain M54.9 [facility] [id number] [place] [address] 07498- 1659 Jan, [facility] [id number] [place] [address] 15383- 9756 Dec, [facility] [address] [place] [address]- 1279 25 Dec, 2014 Anxiety, generalized 300.02 and Major depression, recurrent 296.30 [facility] [id number] [place] [address] 01575- 0485 24 Dec, 2014 [facility] [id number], [place] [address]- 0048 21 Dec, 2014 [facility] [id number] [place] [address] 49325- 8335 17 Dec, 2014 [facility] [id number] [place] [address] 25618- 3270 15 Dec, 2014 [facility] [id number] [place] [address] 85245- 4260 14 Dec, 2014 [facility] [id number] [place] [address] 49274- 8779 11 Dec, 2014 [facility] [id number] [place] [address] 92062- 9968 10 Dec, 2014 [facility] [address] [place] [address] 90590- 3481 08 Dec, 2014 Skin tear 879.8 [facility] [address] [place] [address] 85164- 4607 08 Dec, 2014 Routine gynecological examination V72.31 ; Breast cancer screening V76.10 and Family history of breast cancer in first degree relative V16.3 [facility] [address], [place] [address]- 2326 03 Dec, 2014 [facility] [address] [place] [address] 66773- 8391 Dec, [facility] [id number] [place] [address] 50353- 1001 Nov, [facility] [address], [place] [address]- 0511 Nov, [facility] [id number] [place] [address] 82414- 5267 Nov, Poor balance 781.99 and Vascular dementia, uncomplicated 290.40 [facility] [id number] [place] [address] 66567- 4202 Nov, [facility] [id number] [place] [address] 99812- 6503 Nov, Major depression, recurrent 296.30 and Anxiety, generalized 300.02 [facility] [id number] [place] [address] 22867- 8940 Nov, [facility] [id number] [place] [address] 62739- 1401 Nov, [facility] [id number] [place] [address] 60169- 6156 Nov, [facility] [id number] [place] [address] 98951- 7553 Nov, [facility] [id number] [place] [address] 41908- 9902 Nov, Vascular dementia, uncomplicated 290.40 and Lumbago 724.2 [facility] [id number] [place] [address] 42410- 3835 Nov, [facility] [id number] [place] [address] 07029- 0895 Nov, [facility] [id number] [place] [address] 46991- 2677 Nov, [facility] [id number] [place] [address] 86742- 2772 Oct, [facility] [id number] [place] [address] 43308- 2127 Oct, [facility] [address], [place] [address]- 6370 Oct, [facility] [id number] [place] [address] 47267- 7652 Oct, COPD (chronic obstructive pulmonary disease) 496 and Hyperlipidemia 272.4 [facility] [address], [place] [address]- 6851 Oct, Major depression, recurrent 296.30 and Anxiety, generalized 300.02 [facility] [address], [place] [address]- 5615 Oct, [facility] [id number] [place] [address] 86430- 4709 Oct, [facility] [address], [place] [address]- 8514 Oct, [facility] [id number] [place] [address] 72989- 3409 Sep, Lumbago 724.2 and Anxiety state, unspecified 300.00 [facility] [id number] [place] [address] 03974- 4282 Sep, [facility] [address], [place] [address]- 0909 Sep, [facility] [id number], [place] [address]- 0293 August, [facility] [address], [place] [address]- 6058 August, Major depression, recurrent 296.30 ; Anxiety, generalized 300.02 and No condition on [place] V71.09 [facility] [address], [place] [address]- 7461 August, [facility] [id number], [place] [address]- 2767 August, [facility] [id number], [place] [address]- 2287 Jul, [facility] [address], [place] [address]- 2749 Jul, [facility] [address] [address]- 9226 13 Jul, 2014 [facility] [place] [facility] [address] [id number] [place] [address]- 5017 30 Jun, 2014 [facility] [place] [facility] [address] [id number] [place] [address]- 9846 30 Jun, 2014 [facility] [place] [facility] [address] [id number] [place] [address]- 6707 27 Jun, 2014 [facility] [place] [facility] [address] [id number] [place] [address]- 6165 27 Jun, 2014 [facility] [place] [facility] [address] [id number] [place] [address]- 9023 26 Jun, 2014 [facility] [place] [facility] [address] [id number] [place] [address]- 2924 Jun, [facility] [place] [facility] [address] [id number] [place] [address]- 9866 23 Jun, 2014 [facility] [place] [facility] [address] [id number] [place] [address]- 8220 17 Jun, 2014 [facility] [place] [facility] [address] [id number] [place] [address]- 6150 Jun, [facility] [place] [facility] [address] [id number] [place] [address]- 8739 13 Jun, 2014 [facility] [place] [facility] [address] [id number] [place] [address]- 7419 10 Jun, 2014 [facility] [place] [facility] [address] [id number] [place] [address]- 2366 10 Jun, 2014 [facility] [place] [facility] [address] [id number] [place] [address]- 8326 07 Jun, 2014 [facility] [place] [facility] [address] [id number] [place] [address]- 2546 07 Jun, 2014 [facility] [place] [facility] [address] [id number] [place] [address]- 9724 Jun, 2014 [facility] [place] [facility] [address] [id number] [place] [address]- 0141 Jun, [facility] [place] [facility] [address] [id number] [place] [address]- 7606 May, 2014 [facility] [place] [facility] [address] [facility] [id number] [place] [address]- 7979 May, 2014 [facility] [place] [facility] [address] [facility] [id number] [place] [address]- 4307 May, 2014 [facility] [place] [facility] [address] [id number] [place] [address]- 2563 May, 2014 [facility] [place] [facility] [address] [facility] [id number] [place] [address]- 5771 May, 2014 [facility] [place] [facility] [address] [facility] [id number] [place] [address]- 4051 May, 2014 [facility] [place] [facility] [address] [facility] [id number] [place] [address]- 1034 May, 2014 [facility] [place] [facility] [address] [facility] [id number] [place] [address]- 9440 May, 2014 [facility] [place] [facility] [address] [facility] [id number] [place] [address]- 2092 May, 2014 [facility] [place] [facility] [address] [facility] [id number] [place] [address]- 5312 May, 2014 [facility] [place] [facility] [address] [facility] [id number] [place] [address]- 2662 May, 2014 [facility] [place] [facility] [address] [facility] [id number] [place] [address]- 5566 May, 2014 [facility] [place] [facility] [address] [facility] [id number] [place] [address]- 9105 May, 2014 [facility] [place] [facility] [address] [facility] [id number] [place] [address]- 1651 May2014 [facility] [place] [facility] [address] [id number] [place] [address]- 6310 Apr, [facility] [place] [facility] [address] [id number] [place] [address]- 0196 Apr, [facility] [place] [facility] [address] [id number] [place] [address]- 4983 Apr, [facility] [place] [facility] [address] [id number] [place] [address]- 2566 Apr, [facility] [place] [facility] [address] [id number] [place] [address]- 0697 Apr, [facility] [place] [facility] [address] [id number] [place] [address]- 1024 Apr, [facility] [place] [facility] [address] [id number] [place] [address]- 5281 Apr, [facility] [place] [facility] [address] [id number] [place] [address]- 8698 Apr, [facility] [place] [facility] [address] [id number] [place] [address]- 9648 Apr, [facility] [place] [facility] [address] [id number] [place] [address]- 9014 Apr, [facility] [place] [facility] [address] [id number] [place] [address]- 2105 Apr, [facility] [place] [facility] [address] [id number] [place] [address]- 5135 Apr, [facility] [place] [facility] [address] [id number] [place] [address]- 4256 Mar, [facility] [place] [facility] [address] [id number] [place] [address]- 6455 Mar, [facility] [place] [facility] [address] [id number] [place] [address]- 7684 Mar, [facility] [place] [facility] [address] [id number] [place] [address]- 3959 30 Mar, 2014 [facility] [place] [facility] [address] [id number] [place] [address]- 2546 29 Mar, 2014 [facility] [place] [facility] [address] [id number] [place] [address]- 3596 Mar, [facility] [place] [facility] [address] [id number] [place] [address]- 8166 Mar, [facility] [place] [facility] [address] [id number] [place] [address]- 1192 Mar, [facility] [place] [facility] [address] [id number] [place] [address]- 4364 15 Mar, 2014 [facility] [place] [facility] [address] [id number] [place] [address]- 4382 15 Mar, 2014 [facility] [place] [facility] [address] [id number] [place] [address]- 9547 15 Mar, 2014 [facility] [place] [facility] [address] [id number] [place] [address]- 6027 15 Mar, 2014 [facility] [place] [facility] [address] [id number] [place] [address]- 1436 15 Mar, 2014 [facility] [place] [facility] [address] [id number] [place] [address]- 7231 15 Mar, 2014 [facility] [place] [facility] [address] [id number] [place] [address]- 1106 08 Mar, 2014 [facility] [place] [facility] [address] [id number] [place] [address]- 0740 Mar, [facility] [place] [facility] [address] [id number] [place] [address]- 3652 Mar, [facility] [place] [facility] [address] [id number] [place] [address]- 9365 Mar, [facility] [place] [facility] [address] [id number] [place] 1427 Mar, [facility] [place] [facility] [address] [id number] [place] [address]- 1179 Mar, [facility] [place] [facility] [address] [id number] [place] [address]- 5360 Feb, [facility] [place] [facility] [address] [id number] [place] [address]- 7928 Feb, [facility] [place] [facility] [address] [id number] [place] [address]- 3331 Feb, [facility] [place] [facility] [address] [id number] [place] [address]- 4004 Feb, [facility] [place] [facility] [address] [id number] [place] [address]- 1470 Feb, [facility] [place] [facility] [address] [id number] [place] [address]- 7676 Feb, [facility] [place] [facility] [address] [id number] [place] [address]- 3732 Feb, [facility] [place] [facility] [address] [id number] [place] [address]- 9710 Feb, [facility] [place] [facility] [address] [id number] [place] [address] Feb, [facility] [place] [facility] [address] [id number] [place] [address] Feb, [facility] [place] [facility] [address] [id number] [place] [address] Feb, [facility] [place] [facility] [address] [id number] [place] [address] Feb, [facility] [place] [facility] [address] [id number] [place] [address] Feb, [facility] [place] [facility] [address] [id number] [place] [address] Feb, [facility] [place] [facility] [address] [id number] [place] [address] Feb, [facility] [place] [facility] [address] [id number] [place] [address] Feb, [facility] [place] [facility] [address] [id number] [place] [address] Feb, [facility] [place] [facility] [address] [id number] [place] [address] Jan, [facility] [place] [facility] [address] [id number] [place] [address] Jan, [facility] [place] [facility] [address] [id number] [place] [address] Jan, [facility] [place] [facility] [address] [id number] [place] [address] Jan, [facility] [place] [facility] [address] [id number] [place] [address] Jan, [facility] [place] [facility] [address] [id number] [place] [address] 40[address] Jan, [facility] [place] [facility] [address] [id number] [place] [address] Jan, [facility] [place] [facility] [address] [id number] [place] [address] Jan, [facility] [place] [facility] [address] [id number] [place] [address] Jan, [facility] [place] [facility] [address] [id number], [place] [address] Jan, [facility] [place] [facility] [address] [id number] [place] [address]- [address] Jan, [facility] [place] [facility] [address] [id number] [place] [address] Dec, [facility] [place] [facility] [address] [id number], [place] [address] Dec, [facility] [place] [facility] [address] [id number], [place] [address] Nov, [facility] [place] [facility] [address] [id number] [place] [address]19 Nov, [facility] [place] [facility] [address] [id number] [place] [address]- 8068 Nov, [facility] [place] [facility] [address] [id number] [place] [address] 267[address] Nov, [facility] [place] [facility] [address] [id number] [place] [address] 4038 Nov, [facility] [place] [facility] [address] [id number] [place] [address]- [address] Nov, [facility] [place] [facility] [address] [id number] [place] [address] 0069 Nov, [facility] [place] [facility] [address] [id number] [place] [address] Oct, [facility] [place] [facility] [address] [id number] [place] [address]- [address] Oct, [facility] [place] [facility] [address] [id number] [place] [address] Oct, [facility] [place] [facility] [address] [id number] [place] [address] Oct, [facility] [place] [facility] [address] [id number] [place] [address] Sep, [facility] [place] [facility] [address] [id number] [place] [address] 288[address] Sep, [facility] [place] [facility] [address] [id number] [place] [address]- [address] Sep, [facility] [place] [facility] [address] [id number] [place] [address] Sep, [facility] [place] [facility] [address] [id number] [place] [address]- [address]204 Sep, [facility] [place] [facility] [address] [id number] [place] [address]- [address] 17 Sep, 2013 [facility] [place] [facility] [address] [id number] [place] [address] Sep, [facility] [place] [facility] [address] [id number] [place] [address] Sep, [facility] [place] [facility] [address] [id number] [place] [address] Sep, [facility] [place] [facility] [address] [id number] [place] [address]- [address] Sep, [facility] [place] [facility] [address] [id number] [place] [address]- [address] Sep, [facility] [place] [facility] [address] [id number] [place] [address] Sep, [facility] [place] [facility] [address] [id number] [place] [address]- [address] Sep, [facility] [place] [facility] [address] [id number] [place] [address]- [address] Sep, [facility] [place] [facility] [address] [id number] [place] [address]- [address] August, [facility] [place] [facility] [address] [id number] [place] [address]- [address] August, [facility] [place] [facility] [address] [id number] [place] [address]- [address]761 August, [facility] [place] [facility] [address] [id number] [place] [address]- [address] August, [facility] [place] [facility] [address] [id number] [place] [address] August, [facility] [place] [facility] [address] [id number] [place] [address] 138[address] August, [facility] [place] [facility] [address] [id number] [place] [address] 4[address] August, [facility] [address] [id number] [place] [address] 3117 August, [facility] [place] [facility] [address] [id number] [place] [address] 50[address] August, [facility] [place] [facility] [address] [id number] [place] [address] 45[address] August, [facility] [place] [facility] [address] [id number] [place] [address] 2865 August, [facility] [place] [facility] [address] [id number] [place] [address]- 9883 August, [facility] [place] [facility] [address] [id number] [place] [address]- 0438 August, [facility] [place] [facility] [address] [id number] [place] [address] 478[address] August, [facility] [place] [facility] [address] [id number] [place] [address] 5396 August, [facility] [place] [facility] [address] [id number] [place] [address] 3787 August, [facility] [place] [facility] [address] [id number] [place] [address]- 0287 August, [facility] [place] [facility] [address] [id number] [place] [address]- 1713 August, [facility] [place] [facility] [address] [id number] [place] [address]- 3586 August, [facility] [place] [facility] [address] [id number] [place] [address]- 7579 Jul, [facility] [place] [facility] [address] [id number] [place] [address]- 9667 Jul, [facility] [place] [facility] [address] [id number] [place] [address]- 4762 Jul, [facility] [place] [facility] [address] [id number] [place] [address]- 0747 08 Jul, 2013 [facility] [place] [facility] [address] [id number] [place] [address]- 1528 27 Jun, 2013 [facility] [place] [facility] [address] [id number] [place] [address]- 7559 27 Jun, 2013 [facility] [place] [facility] [address] [id number] [place] [address]- 0967 24 Jun, 2013 [facility] [place] [facility] [address] [id number] [place] [address]- 0068 24 Jun, 2013 [facility] [place] [facility] [address] [id number] [place] [address]- 7858 Jun, [facility] [place] [facility] [address] [id number] [place] [address]- 8879 Jun, [facility] [place] [facility] [address] [id number] [place] [address]- 6030 Jun, [facility] [place] [facility] [address] [id number] [place] [address]- 3570 14 Jun, 2013 [facility] [place] [facility] [address] [id number] [place] [address]- 9984 Jun, [facility] [place] [facility] [address] [facility] [id number] [place] [address]- 1516 Jun, [facility] [place] [facility] [address] [id number] [place] [address]- 7429 May, [facility] [place] [facility] [address] [id number] [place] [address]- 5214 May, [facility] [place] [facility] [address] [id number] [place] [address]- 5968 May, [facility] [place] [facility] [address] [id number] [place] [address]- 6063 May, [facility] [place] [facility] [address] [id number] [place] [address]- 8015 May, [facility] [place] [facility] [address] [id number] [place] [address]- 2109 May, [facility] [place] [facility] [address] [id number] [place] [address]- 7056 May, [facility] [place] [facility] [address] [id number] [place] [address]- 1846 May, [facility] [place] [facility] [address] [id number] [place] [address] 2544 May, [facility] [place] [facility] [address] [id number] [place] [address]- 4486 May, [facility] [place] [facility] [address] [id number] [place] [address]- 4878 May, [facility] [place] [facility] [address] [facility] [id number] [place] [address]- 2671 17 May, 2013 [facility] [place] [facility] [address] [id number] [place] [address]- 9556 May, [facility] [place] [facility] [address] [id number] [place] [address]- 9287 May, [facility] [place] [facility] [address] [facility] [id number] [place] [address]- 1906 May, [facility] [place] [facility] [address] [facility] [id number] [place] [address]- 2547 May, [facility] [place] [facility] [address] [id number] [place] [address]- 2542 May, [facility] [place] [facility] [address] [id number] [place] [address]- 1089 Apr, [facility] [place] [facility] [address] [id number] [place] [address]- 1848 15 Apr, 2013 [facility] [place] [facility] [address] [facility] [id number] [place] [address]- 1273 15 Apr, 2013 [facility] [place] [facility] [address] [id number] [place] [address]- 3176 Apr, [facility] [address] [id number] [place] [address]- 7830 Apr, [facility] [place] [facility] [address] [id number] [place] [address]- 2546 Apr, [facility] [address] [id number] [place] [address]- 7637 Apr, [facility] [place] [facility] [address] [id number] [place] [address]- 0064 Mar, [facility] [place] [facility] [address] [id number] [place] [address]- 7986 Mar, [facility] [place] [facility] [address] [id number] [place] [address]- 9941 Mar, [facility] [place] [facility] [address] [id number] [place] [address]- 0421 Mar, [facility] [address] [id number] [place] [address]- 3452 Mar, [facility] [place] [facility] [address] [id number] [place] [address]- 4707 Mar, [facility] [place] [facility] [address] [id number] [place] [address]- 7427 Mar, [facility] [place] [facility] [address] [id number] [place] [address]- 1624 Mar, [facility] [place] [facility] [address] [id number] [place] [address]- 9179 Mar, [facility] [place] [facility] [address] [id number] [place] [address]- 5036 Mar, [facility] [place] [facility] [address] [id number] [place] [address]- 2246 Mar, [facility] [place] [facility] [address] [id number] [place] [address]- 0196 Feb, [facility] [place] [facility] [address] [id number] [place] [address]- 4020 Feb, [facility] [place] [facility] [address] [id number] [place] [address]- 6653 Feb, [facility] [place] [facility] [address] [id number] [place] [address]- 0647 20 Feb, 2013 [facility] [place] [facility] [address] [id number] [place] [address]- 9601 Feb, [facility] [place] [facility] [address] [id number] [place] [address]- 5094 19 Feb, 2013 [facility] [place] [facility] [address] [id number] [place] [address]- 3297 15 Feb, 2013 [facility] [place] [facility] [address] [id number] [place] [address]- 8538 14 Feb, 2013 [facility] [place] [facility] [address] [id number], [place] [address]- 2987 14 Feb, 2013 [facility] [place] [facility] [address] [id number] [place] [address]- 6116 13 Feb, 2013 [facility] [place] [facility] [address] [id number], [place] [address]- 6623 13 Feb, 2013 [facility] [place] [facility] [address] [id number], [place] [address]- 1785 12 Feb, 2013 [facility] [place] [facility] [address] [id number], [place] [address]- 3586 12 Feb, 2013 [facility] [place] [facility] [address] [id number] [place] [address]- 1350 Feb, [facility] [place] [facility] [address] [id number], [place] [address]- 4190 05 Feb, 2013 [facility] [place] [facility] [address] [id number], [place] [address]- 5513 05 Feb, 2013 [facility] [place] [facility] [address] [id number] [place] [address]- 6586 Jan, [facility] [place] [facility] [address] [id number] [place] [address]- 7197 Jan, 2012 [facility] [place] [facility] [address] [id number] [place] [address]- 0616 Jan, [facility] [place] [facility] [address] [id number] [place] [address]- 3975 Jan, 2012 [facility] [place] [facility] [address] [id number] [place] [address]- 2472 Jan, [facility] [place] [facility] [address] [id number] [place] [address]- 1063 Jan, [facility] [place] [facility] [address] [id number] [place] [address]- 8125 Jan, [facility] [place] [facility] [address] [id number] [place] [address]- 9422 10 Jan, 2013 [facility] [place] [facility] [address] [id number] [place] [address]- 4049 10 Jan, 2013 [facility] [place] [facility] [address] [id number] [place] [address]- 6415 27 Dec, 2012 [facility] [place] [facility] [address] [id number] [place] [address]- 5957 20 Dec, 2012 [facility] [place] [facility] [address] [id number] [place] [address]- 2434 19 Dec, 2012 [facility] [place] [facility] [address] [id number] [place] [address]- 2542 10 Dec, 2012 [facility] [place] [facility] [address] [id number] [place] [address]- 6538 04 Dec, 2012 [facility] [place] [facility] [address] [id number] [place] [address]- 2547 03 Dec, 2012 [facility] [place] [facility] [address] [id number] [place] [address]- 9991 22 Nov, 2012 [facility] [place] [facility] [address] [id number] [place] [address]- 5100 Nov, [facility] [place] [facility] [address] [id number] [place] [address]- 4598 Nov, [facility] [place] [facility] [address] [id number] [place] [address]- 7796 Nov, [facility] [place] [facility] [address] [id number] [place] [address]- 0191 Nov, [facility] [place] [facility] [address] [id number] [place] [address]- 0721 Nov, [facility] [place] [facility] [address] [id number] [place] [address]- 4561 Nov, [facility] [place] [facility] [address] [id number] [place] [address]- 0426 Nov, [facility] [place] [facility] [address] [id number] [place] [address]- 1423 Nov, [facility] [place] [facility] [address] [id number] [place] [address]- 9251 Nov, [facility] [place] [facility] [address] [id number] [place] [address]- 3475 Oct, [facility] [place] [facility] [address] [id number] [place] [address]- 4266 Oct, [facility] [place] [facility] [address] [id number] [place] [address]- 8206 Oct, [facility] [place] [facility] [address] [id number] [place] [address]- 2627 Oct, [facility] [place] [facility] [address] [id number] [place] [address]- 5011 Oct, [facility] [place] [facility] [address] [id number] [place] [address]- 0551 Oct, [facility] [place] [facility] [address] [id number] [place] [address]- 7416 Oct, [facility] [address] [id number] [place] [address]33 Oct, [facility] [place] [facility] [address] [id number] [place] [address]- 7759 Sep, [facility] [place] [facility] [address] [id number] [place] [address]- 5497 Sep, [facility] [place] [facility] [address] [id number] [place] [address]- 6085 Sep, [facility] [place] [facility] [address] [id number] [place] [address]- 0534 Sep, [facility] [place] [facility] [address] [id number] [place] [address]- 0994 Sep, [facility] [place] [facility] [address] [id number] [place] [address]- 9404 Sep, [facility] [place] [facility] [address] [id number] [place] [address]- 9061 Sep, [facility] [place] [facility] [address] [id number] [place] [address]- 3775 Sep, [facility] [place] [facility] [address] [id number] [place] [address]- 5382 August, [facility] [place] [facility] [address] [id number] [place] [address]- 5800 August, [facility] [place] [facility] [address] [id number] [place] [address]- 8511 August, [facility] [place] [facility] [address] [id number] [place] [address]- 9236 August, [facility] [place] [facility] [address] [id number] [place] [address]- 5217 August, [facility] [place] [facility] [address] [id number] [place] [address]- 0435 Jul, [facility] [place] [facility] [address] [id number] [place] [address]- 1097 25 Jul, 2012 [facility] [address] [id number] [place] [address]- 3764 Jul, [facility] [address] [id number] [place] [address]- 9336 04 Jul, 2012 [facility] [address] [id number] [place] [address]- 3361 Jul, [facility] [address] [id number] [place] [address]- 2670 18 Jun, 2012 [facility] [address] [id number] [place] [address]- 9971 18 Jun, 2012 [facility] [address] [id number] [place] [address]- 9827 15 Jun, 2012 [facility] [address] [id number] [place] [address]- 5205 14 Jun, 2012 [facility] [address] [id number] [place] [address]- 5622 Jun, [facility] [address] [id number] [place] [address]- 9162 Jun, [facility] [address] [facility] [id number] [place] [address]- 4394 Jun, [facility] [address] [id number] [place] [address]- 1069 Jun, [facility] [address] [id number] [place] [address]- 0352 Jun, [facility] [address] [id number] [place] [address]- 8991 27 May, 2012 [facility] [address] [id number] [place] [address]- 8116 May, [facility] [address] [id number] [place] [address]- 1723 May, [facility] [address] [id number] [place] [address]- 9623 May, [facility] [address] [id number] [place] [address]- 1146 Apr, [facility] [address] [id number] [place] [address]- 8153 Apr, [facility] [address] [id number] [place] [address]- 1155 Apr, [facility] [address] [id number] [place] [address]- 7228 Apr, [facility] [address] [id number] [place] [address]- 8035 Apr, [facility] [address] [id number] [place] [address]- 2156 Apr, [facility] [address] [id number] [place] [address]- 9071 Apr, [facility] [address] [id number] [place] [address]- 5859 Mar, [facility] [place] [id number] Mar, [facility] [address] [id number] [place] [address]- 1953 Mar, [facility] [address] [id number], [place] [address]- 5641 Mar, [facility] [address] [id number] [place] [address]- 7583 Mar, [facility] [address] [id number] [place] [address]- 9852 Mar, [facility] [address] [id number] [place] [address]- 9081 Mar, [facility] [address] [id number] [place] [address]- 9542 Mar, [facility] [place] [facility] [address] [id number] [place] [address]- 3766 Mar, [facility] [place] [facility] [address] [id number] [place] [address]- 8336 Mar, [facility] [place] [facility] [address] [id number] [place] [address]- 6596 Mar, [facility] [place] [facility] [address] [id number] [place] [address]- 7576 Mar, [facility] [place] [facility] [address] [id number] [place] [address]- 0872 Mar, [facility] [place] [facility] [address] [id number] [place] [address]- 8536 Mar, [facility] [place] [facility] [address] [id number] [place] [address]- 4247 Mar, [facility] [place] [facility] [address] [id number] [place] [address]- 6386 Mar, [facility] [place] [facility] [address] [id number] [place] [address]- 2898 Mar, [facility] [place] [facility] [address] [id number] [place] [address]- 3770 Feb, [facility] [place] [facility] [address] [id number] [place] [address]- 8679 Feb, [facility] [place] [facility] [address] [id number] [place] [address]- 2073 Feb, [facility] [place] [facility] [address] [id number] [place] [address]- 4515 Feb, [facility] [place] [facility] [address] [id number] [place] [address]- 5075 Feb, [facility] [place] [facility] [address] [id number] [place] [address]- 1846 Feb, [facility] [place] [facility] [address] [id number] [place] [address]- 7016 Feb, [facility] [place] [facility] [address] [id number] [place] [address]- 4504 Feb, [facility] [place] [facility] [address] [id number] [place] [address]- 9754 Feb, [facility] [place] [facility] [address] [id number] [place] [address]- 2428 16 Feb, 2012 [facility] [place] [facility] [address] [id number] [place] [address]- 7238 Feb, [facility] [place] [facility] [address] [id number] [place] [address], [place] [address]- 0580 Feb, [facility] [place] [facility] [address] [id number] [place] [address]- 0534 Feb, [facility] [place] [facility] [address] [id number] [place] [address]- 4723 Feb, [facility] [place] [facility] [address] [id number] [place] [address]- 8773 Feb, [facility] [place] [facility] [address] [id number] [place] [address]- 4981 Feb, [facility] [place] [facility] [address] [facility] [id number] [place] [address]- 7877 Jan, [facility] [place] [facility] [address] [id number] [place] [address]- 0534 Jan, [facility] [place] [facility] [address] [id number] [place] [address]- 4659 Jan, [facility] [place] [facility] [address] [id number] [place] [address]- 5187 Jan, [facility] [place] [facility] [address] [facility] [id number] [place] [address] Jan, [facility] [place] [facility] [address] [id number] [place] [address] Jan, [facility] [place] [facility] [address] [id number] [place] [address]- [address] Jan, [facility] [place] [facility] [address] [id number] [place] [address] Jan, [facility] [place] [facility] [address] [id number] [place] [address] Jan, [facility] [place] [facility] [address] [id number] [place] [address] Jan, [facility] [place] [facility] [address] [id number] [place] [address] Jan, [facility] [place] [facility] [address] [id number] [place] [address] Jan, [facility] [place] [facility] [address] [id number] [place] [address] 30[address] Jan, [facility] [place] [facility] [address] [id number], [place] [address] Jan, [facility] [place] [facility] [address] [id number] [place] [address]- 8545 Jan, [facility] [place] [facility] [address] [id number], [place] [address] Jan, [facility] [place] [facility] [address] [id number], [place] [address] Jan, [facility] [place] [facility] [address] [id number], [place] [address] 21 Dec, 2011 [facility] [place] [facility] [address] [id number] [place] [address]- [address] 20 Dec, 2011 [facility] [place] [facility] [address] [id number], [place] [address] 18 Dec, 2011 [facility] [place] [facility] [address] [id number], [place] [address] 18 Dec, 2011 [facility] [place] [facility] [address] [id number], [place] [address] 10 Dec, 2011 [facility] [place] [facility] [address] [id number] [place] [address] 2546 10 Dec, 2011 [facility] [place] [facility] [address] [id number] [place] [address] 2546 10 Dec, 2011 [facility] [place] [facility] [address] [id number] [place] [address] Dec, [facility] [place] [facility] [address] [id number] [place] [address]- [address]8 30 Nov, 2011 [facility] [place] [facility] [address] [id number] [place] [address]- 8839 Nov, [facility] [place] [facility] [address] [id number] [place] [address]- [address] Nov, [facility] [place] [facility] [address] [id number] [place] [address]- 1668 Nov, [facility] [place] [facility] [address] [id number] [place] [address]- 0921 Nov, [facility] [place] [facility] [address] [id number] [place] [address] 9798 Nov, [facility] [place] [facility] [address] [id number] [place] [address]- [address] Oct, [facility] [place] [facility] [address] [id number] [place] [address]- 4861 Oct, [facility] [place] [facility] [address] [id number] [place] [address]- 2543 Oct, [facility] [place] [facility] [address] [id number] [place] [address]- [address] Oct, [facility] [place] [facility] [address] [id number] [place] [address]- 3581 Oct, [facility] [place] [facility] [address] [id number] [place] [address]- 6760 Oct, [facility] [place] [facility] [address] [id number] [place] [address]- 7235 Oct, [facility] [place] [facility] [address] [id number] [place] [address]- 4717 Sep, [facility] [place] [facility] [address] [id number] [place] [address]- 6346 Sep, [facility] [place] [facility] [address] [id number] [place] [address]- 4336 Sep, [facility] [place] [facility] [address] [id number] [place] [address]- 3442 Sep, [facility] [place] [facility] [address] [id number] [place] [address]- [address]331 Sep, [facility] [place] [facility] [address] [id number] [place] [address]- 4672 Sep, [facility] [place] [facility] [address] [id number] [place] [address]- 3736 Sep, [facility] [place] [facility] [address] [id number] [place] [address]- 4352 Sep, [facility] [place] [facility] [address] [id number] [place] [address]- 2487 Sep, [facility] [place] [facility] [address] [id number] [place] [address]- 275[address] Sep, [facility] [place] [facility] [address] [id number] [place] [address]- 3888 August, [facility] [place] [facility] [address] [id number] [place] [address]- 9465 August, [facility] [place] [facility] [address] [id number] [place] [address]- 47[address] August, [facility] [place] [facility] [address] [id number] [place] [address]- 7006 August, [facility] [place] [facility] [address] [id number] [place] [address] 277[address] August, [facility] [place] [facility] [address] [id number] [place] [address]- 34[address] Jul, [facility] [place] [facility] [address] [id number] [place] [address]- 4772 Jul, [facility] [place] [facility] [address] [facility] [id number] [place] [address]- 9055 Jul, [facility] [place] [facility] [address] [id number] [place] [address]- 3686 Jul, [facility] [place] [facility] [address] [id number] [place] [address]- 0880 Jul, [facility] [place] [facility] [address] [id number] [place] [address]- 6695 Jul, [facility] [place] [facility] [address] [facility] [id number] [place] [address]- 2944 Jul, [facility] [place] [facility] [address] [id number] [place] [address]- 7261 Jun, [facility] [place] [facility] [address] [id number] [place] [address]- [address] Jun, [facility] [place] [facility] [address] [facility] [id number] [place] [address]- 5833 Jun, [facility] [place] [facility] [address] [id number] [place] [address]- 9093 Jun, [facility] [place] [facility] [address] [id number], [place] [address] Jun, [facility] [place] [facility] [address] [id number] [place] [address]- 5159 May, [facility] [place] [facility] [address] [id number] [place] [address]- 7981 May, [facility] [place] [facility] [address] [facility] [id number] [place] [address]- 8900 May, [facility] [place] [facility] [address] [id number] [place] [address]- 2475 May, [facility] [place] [facility] [address] [id number] [place] [address]- 4518 May, [facility] [place] [facility] [address] [id number] [place] [address]- 0765 May, [facility] [place] [facility] [address] [id number] [place] [address]- 1807 Apr, [facility] [place] [facility] [address] [id number] [place] [address]- 6162 Mar, [facility] [place] [facility] [address] [id number] [place] [address]- 7842 Feb, [facility] [place] [facility] [address] [id number] [place] [address] Feb, [facility] [place] [facility] [address] [id number] [place] [address] Feb, [facility] [place] [facility] [address] [id number] [place] [address] Feb, [facility] [place] [facility] [address] [id number] [place] [address] Jan, [facility] [place] [facility] [address] [id number] [place] [address] Jan, [facility] [place] [facility] [address] [id number] [place] [address] Jan, [facility] [place] [facility] [address] [id number] [place] [address] 24 Jan, 2011 [facility] [place] [facility] [address] [id number] [place] [address] 14 Jan, 2011 [facility] [place] [facility] [address] [id number] [place] [address] Dec, [facility] [place] [facility] [address] [id number] [place] [address] Oct, [facility] [address] [id number] [place] [address] August, [facility] [place] [facility] [address] [id number] [place] [address] 29 Mar, 2010 [facility] [place] [facility] [address] [id number] [place] [address] 27 Mar, 2010 [facility] [place] [facility] [address] [id number] [place] [address] 16 Mar, 2010 [facility] [place] [facility] [address] [id number] [place] [address] 15 Mar, 2010 [facility] [place] [facility] [address] [id number] [place] [address] 15 Mar, 2010 [facility] [place] [facility] [address] [id number] [place] [address] 08 Mar, 2010 [facility] [place] [facility] [address] [id number] [place] [address] Mar, [facility] [place] [facility] [address] [id number] [place] [address] Feb, [facility] [place] [facility] [address] [id number], [place] [address] 24 Feb, 2010 [facility] [place] [facility] [address] [id number], [place] [address] Feb, [facility] [place] [facility] [address] [id number], [place] [address] Jan, [facility] [place] [facility] [address] [id number] [place] [address] Jan, [facility] [place] [facility] [address] [id number], [place] [address] Jan, [facility] [place] [facility] [address] [id number] [place] [address] Nov, [facility] [place] [facility] [address] [id number] [place] [address] 14 Sep, 2009 [facility] [place] [facility] [address] [id number] [place] [address]- [address] 18 Aug, 2009 [facility] [place] [facility] [address] [facility] [id number] [place] [address] 30 Mar, 2009 [facility] [place] [facility] [address] [facility] [id number] [place] [address] 07 Mar, 2009 [facility] [place] [facility] [address] [id number] [place] [address] 17 Feb, 2009 [facility] [place] [facility] [address] [id number] [place] [address] 84[address] 10 Feb, 2009 [facility] [place] [facility] [address] [id number] [place] [address] 10 Feb, 2009 [facility] [place] [facility] [address] [facility] [id number] [place] [address] 10 Feb, 2009 [facility] [place] [facility] [address] [id number] [place] [address] 06 Feb, 2009 [facility] [place] [facility] [address] [facility] [id number] [place] [address] 27 Jan, 2009 [facility] [place] [facility] [address] [facility] [id number] [place] [address] 26 Jan, 2009 [facility] [place] [facility] [address] [facility] [id number] [place] [address]- [address] 20 Jan, 2009 [facility] [place] [facility] [address] [id number], [place] [address] 19 Jan, 2009 [facility] [place] [facility] [address] [id number], [place] [address] 10 Nov, 2008 [facility] [place] [facility] [address] [facility] [id number], [place] [address] 16 Sep, 2008 [facility] [place] [facility] [address] [facility] [id number], [place] [address] August, [facility] [place] [facility] [address] [facility] [id number] [place] [address] Jul, [facility] [address] [facility] [id number], [place] [address] May, IMMUNIZATIONS No Known Immunizations SOCIAL HISTORY Never Assessed REASON FOR VISIT Refill request PLAN OF CARE VITAL SIGNS MEDICATIONS Medication Instructions Dosage Frequency Start Date End Date Duration Status Abilify 20 MG Orally Once a day 1 tablet 24h Jul, 30 day(s) Active RESULTS No Results PROCEDURES [...] psychiatric treatment 30 days s/p suicide attempt 20'
[2017-07-16] MEDS ORDERED: CEFUROXIME INJECTION 1,500 MG in NS (IVPB) 100 ML IV ONE (07:45)
[2017-07-16] MEDS ORDERED: MIDAZOLAM 2 MG/2 ML (VERSED) VIAL ONE (07:50)
[2017-07-16] MEDS ORDERED: FAMOTIDINE 20MG/2ML IV (PEPCID) IV ONE (08:00)
[2017-07-16] MEDS ORDERED: RT-ALBUTEROL SULF 2.5 MG/3 ML PRE-MIX VIAL INH ONE ×3 (08:00→09:45)
[2017-07-16] MEDS ORDERED: INTRA-ARTICULAR IU ONE ×5 (08:00)
--- OUTSIDE RECORDS SUMMARY | 2017-07-16 08:02 | XMS REPORT ---
Author Author FAHAD CLEMENT [facility] Address [address] [place] [address] Care Team Providers Care Informatic[employer] Mdm Architect Name Role Phone FAHAD CLEMENT Unavailable PROBLEMS Type Condition ICD9-CM Code UPD73-FQ Code Onset Dates Condition Status SNOMED Code Problem Barretts esophagus K22.70 Active 537178030 Problem Coronary artery disease involving [place] coronary artery of [place] 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 I25.118 Active 7556872838081 Problem Colon polyp K63.5 Active 37240121 Problem History of common bile duct surgery Z98.89 Active 694028962 Problem 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 Active 04616963 Problem Bilateral low back pain without sciatica M54.5 Active 602117140 Problem Screening breast examination Z12.39 Active 632489293 Problem Postmenopausal Z78.0 Active 24612416 Problem Osteopenia M85.80 Active 503504342 Problem Crohn''s disease without complication, unspecified gastrointestinal tract location K50.90 Active 10387464 Problem Cigarette nicotine dependence without complication F17.210 Active 56989546 Problem Type 2 diabetes mellitus with diabetic peripheral angiopathy without gangrene E11.51 Active 298508070 Problem Vascular dementia without behavioral disturbance F01.50 Active 40020919522296273 Problem Unspecified atherosclerosis of [place] arteries of extremities, unspecified extremity I70.209 Active 193699265320599 Problem Other chronic pancreatitis K86.1 Active 509140067 Problem Chronic atrial fibrillation I48.2 Active 944903140 Problem Diabetic polyneuropathy associated with type 2 diabetes mellitus E11.42 Active 23624600 Problem Controlled type 2 diabetes mellitus without complication, without long -term current use of insulin E11.9 Active 066258286 Problem Xeroderma Q80.9 Active 98153282 Problem Dementia without behavioral disturbance, unspecified dementia type F03.90 Active 10825441 Problem Gastroparesis K31.84 Active 842205084 Problem Arthritis M19.90 Active 4294365 Problem Osteoporosis M81.0 Active 59021225 Problem Atherosclerotic heart disease of [place]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 I25.118 Active 6490646284052 Problem Hyperlipidemia E78.5 Active 31651495 Problem Chronic obstructive pulmonary disease with acute lower respiratory infection J44.0 Active 564137663 Problem Essential tremor G25.0 Active 94945512 Problem Type 2 diabetes mellitus with diabetic neuropathy, without long-term current use of insulin E11.40 Active 77729599 Problem Atherosclerosis of [place] artery of both lower extremities with intermittent claudication I70.213 Active 979939429693356 Problem Paroxysmal atrial fibrillation I48.0 Active 302090628 Problem Migraine without aura and with status migrainosus, not intractable G43.001 Active 025670122 Problem Generalized anxiety disorder F41.1 Active 383704761 Problem Gastroesophageal reflux disease, esophagitis presence not specified K21.9 Active 517053825 Problem Major depressive disorder, recurrent episode, moderate F33.1 Active 630611567 Problem Unspecified psychosis F29 Active 87429610 Problem Chronic pain syndrome G89.4 Active 435478764 Problem Migraine without aura and without status migrainosus, not intractable G43.009 Active 592221862 Problem COPD (chronic obstructive pulmonary disease) J44.9 Active 27861492 Problem Bipolar affective disorder, currently depressed, moderate F31.32 Active 388875407 Problem Cervicalgia M54.2 Active 8759446122942 Problem Acute exacerbation of chronic obstructive pulmonary disease (COPD) J44.1 Active 264011544 Problem Postconcussion syndrome F07.81 Active 50444315 Problem Chronic fatigue R53.82 Active 99182325 ALLERGIES No Information ENCOUNTERS Encounter Location Date Diagnosis [facility] [address] [address] Jul, [facility] [address] [address] Jul, [facility] [address] [address] Jun, Diabetic polyneuropathy associated with type 2 diabetes mellitus E11.42 [facility] [address] [address] Jun, Diabetic polyneuropathy associated with type 2 diabetes mellitus E11.42 ; Coronary artery disease involving [place] coronary artery of [place] 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 I25.118 and Paroxysmal atrial fibrillation I48.0 [facility] [address] [place] [address] 05715- 9524 27 Jun, 2017 [facility] [id number] [place] [address] 78365- 6531 Jun, [facility] [id number] [place] [address] 58535- 5702 Jun, Gastroenteritis K52.9 [facility] [id number] [place] [address] 98754- 5533 Jun, Gastroenteritis K52.9 [facility] [id number] [place] [address] 80278- 3054 Jun, [facility] [id number] [place] [address] 12165- 9155 Jun, [facility] [id number] [place] [address] 88888- 0740 Jun, Sprain of right ankle, unspecified ligament, initial encounter S93.401A ; Type 2 diabetes mellitus with diabetic neuropathy, without long-term current use of insulin E11.40 ; Atherosclerosis of [place] artery of both lower extremities with intermittent claudication I70.213 ; Atherosclerotic heart disease of [place]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 I25.118 ; Chronic atrial fibrillation I48.2 and Crohn''s disease without complication, unspecified gastrointestinal tract location K50.90 [facility] [address], [place] [address] 17 Jun, 2017 Cough R05 and Chronic obstructive pulmonary disease with acute lower respiratory infection J44.0 [facility] [address] [place] [address] 92038- 9560 16 Jun, 2017 [facility] [address] [place] [address] 83872- 4305 15 Jun, 2017 Coughing R05 ; Unspecified atherosclerosis of [place] arteries of extremities, unspecified extremity I70.209 ; Type 2 diabetes mellitus with diabetic peripheral angiopathy without gangrene E11.51 ; Crohn''s disease without complication, unspecified gastrointestinal tract location K50.90 ; Other chronic pancreatitis K86.1 and Chronic atrial fibrillation I48.2 [facility] [address], [place] [address] Jun, [facility] [id number] [place] [address] 32519- 7850 Jun, Bipolar affective disorder, currently depressed, moderate F31.32 ; Vascular dementia without behavioral disturbance F01.50 and Generalized anxiety disorder F41.1 [facility] [id number] [place] [address] 37160- 3084 May, Generalized anxiety disorder F41.1 [facility] [id number] [place] [address] 67294- 5216 May, [facility] [id number] [place] [address] 74263- 6797 May, [facility] [address] [place] [address] 47231- 6665 May, Coughing R05 [facility] [id number] [place] [address] 49369- 7783 May, [facility] [address] [place] [address] 23691- 1317 May, Bipolar affective disorder, currently depressed, moderate F31.32 ; Vascular dementia without behavioral disturbance F01.50 and Generalized anxiety disorder F41.1 [facility] [address] [place] [address] 10236- 6968 Apr, Generalized anxiety disorder F41.1 [facility] [id number] [place] [address] 94874- 4359 Apr, [facility] [id number] [place] [address] 66578- 1899 Apr, Vascular dementia without behavioral disturbance F01.50 ; Generalized anxiety disorder F41.1 and Bipolar affective disorder, currently depressed, moderate F31.32 [facility] [address] 32864- 3913 Apr, Generalized anxiety disorder F41.1 [facility] [id number] [place] [address] 98479 -1392 Apr, Cough R05 and Acute exacerbation of chronic obstructive pulmonary disease (COPD) J44.1 [facility] [address] 15906- 9082 Apr, [facility] [address] 49286 -9474 Mar, Cough R05 and Cigarette nicotine dependence without complication F17.210 [facility] [address] 96263- 7943 Mar, [facility] [address] 39008- 1174 Feb, Generalized anxiety disorder F41.1 ; Major depressive disorder, recurrent episode, moderate F33.1 ; Vascular dementia without behavioral disturbance F01.50 and Unspecified psychosis F29 [facility] [id number] [place] [address] 72143- 1433 Feb, [facility] [id number] [place] [address] 08334- 0094 Feb, [facility] [address] 71883- 8085 Feb, Generalized anxiety disorder F41.1 [facility] [id number] [place] [address] 45532- 9433 Feb, Generalized anxiety disorder F41.1 [facility] [id number] [place] [address] 66293- 7676 Feb, Dizziness R42 ; Chronic fatigue R53.82 ; Postconcussion syndrome F07.81 ; Fall, initial encounter W19.XXXA and Disorientation R41.0 [facility] [id number] [place] [address] 71562- 9028 Feb, Postconcussion syndrome F07.81 ; Injury of head, initial encounter S09.90XA ; Fall, initial encounter W19.XXXA ; Disorientation R41.0 and Acute cystitis with hematuria N30.01 [facility] [address] 23106- 6228 Jan, Gastroesophageal reflux disease, esophagitis presence not specified K21.9 ; Post-menopausal Z78.0 and Migraine without aura and without status migrainosus, not intractable G43.009 [facility] [address] 64267- 2901 Jan, [facility] [address] 15412- 6554 Jan, Generalized anxiety disorder F41.1 ; Major depressive disorder, recurrent episode, moderate F33.1 ; Vascular dementia without behavioral disturbance F01.50 and Unspecified psychosis F29 [facility] [address] 15762- 1719 Jan, Pneumonia of left lower lobe due to infectious organism J18.1 [facility] [id number] [place] [address] 89320- 9755 Jan, Migraine without aura and with status migrainosus, not intractable G43.001 [facility] [id number] [place] [address] 40316 -5698 Jan, Migraine without aura and without status migrainosus, not intractable G43.009 [facility] [address] 84874- 5854 Dec, Hematoma T14.8 [facility] [address] 95792- 6668 Dec, [facility] [address] 71044 -4114 Nov, Fatigue, unspecified type R53.83 [facility] [address], [place] [address] Nov, Scabies B86 and Coronary artery disease involving [place] coronary artery of [place] 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 I25.118 [facility] [address], [place] [address] 2851 Nov, [facility] [id number] [place] [address] 90802- 2079 Nov, [facility] [id number] [place] [address] 87945- 9545 Oct, [facility] [id number] [place] [address] 22832- 8247 Oct, Generalized anxiety disorder F41.1 and Major depressive disorder, recurrent episode, moderate F33.1 [facility] [id number] [place] [address] 13787- 0645 Oct, Cramp of both lower extremities R25.2 [facility] [id number] [place] [address] 21977- 2527 Oct, Leg cramps R25.2 [facility] [id number] [place] [address] 97984- 4563 Oct, Chronic pain syndrome G89.4 [facility] [id number] [place] [address] 84331- 6993 Oct, [facility] [id number] [place] [address] 94462- 3686 Oct, [facility] [id number] [place] [address] 30640- 9327 Oct, Routine gynecological examination Z01.419 and Screening for breast cancer Z12.31 [facility] [address] [address]- 4371 Sep, Diarrhea R19.7 [facility] [id number] [place] [address] 49638- 6476 Sep, Back pain M54.9 [facility] [id number] [place] [address] 85686- 9411 Sep, [facility] [id number] [place] [address] 99455- 2783 Sep, [facility] [address] 33783 -5959 August, Xeroderma Q80.9 [facility] [id number] [place] [address] 88536- 8921 August, Dementia without behavioral disturbance, unspecified dementia type F03.90 [facility] [id number] [place] [address] 44692- 1476 August, Chronic pain syndrome G89.4 [facility] [address] 41584- 5355 August, [facility] [id number] [place] [address] 39979- 7119 August, Hyperlipidemia E78.5 ; Other fatigue R53.83 and Other specified hypotension I95.89 [facility] [id number] [place] [address] 20324 -0046 August, Dysuria R30.0 ; Other fatigue R53.83 and Other specified hypotension I95.89 [facility] [id number] [place] [address] 17078- 2235 August, [facility] [id number] [place] [address] 86660- 8414 Jul, Pain in left knee M25.562 and Gastroenteritis K52.9 [facility] [id number] [place] [address] 16040- 3010 Jul, [facility] [id number] [place] [address] 11137- 6355 Jul, Diarrhea R19.7 [facility] [id number] [place] [address] 27391 -1746 Jul, Spider bite, accidental or unintentional, initial encounter T63.301A [facility] [address] 48986- 6792 Jul, Primary osteoarthritis of right knee M17.11 and Arthritis M19.90 [place] [address] 38009- 6971 Jul, Generalized anxiety disorder F41.1 and Major depressive disorder, recurrent episode, moderate F33.1 [place] [facility] [address] 00184- 6592 07 Jul, 2016 Type 2 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 and Temporal headache R51 [place] [facility] [address] 72089- 8070 Jul, Back pain M54.9 [facility] [address] 96729- 9779 Jul, [facility] [address] 66425- 1921 Jul, [facility] [address] 81724- 1834 30 Jun, 2016 Nausea R11.0 [facility] [address] 91995 -6289 Jun, Acute suppurative otitis media of both ears without spontaneous rupture of tympanic membranes, recurrence not specified H66.003 and COPD exacerbation J44.1 [facility] [address] 15774- 0341 Jun, Generalized anxiety disorder F41.1 [facility] [address] 16910- 8147 16 Jun, 2016 [facility] [address] 32266 -3140 Jun, [facility] [address] [place] [address] 08862 -6192 13 Jun, 2016 Shortness of breath R06.02 and COPD exacerbation J44.1 [facility] [id number] [place] [address] 15429- 0272 10 Jun, 2016 Eczema, unspecified type L30.9 [facility] [id number] [place] [address] 21512- 8210 09 Jun, 2016 [facility] [id number] [place] [address] 28106- 1256 May, [facility] [address] 00684- 9530 May, Muscle cramping R25.2 [facility] [facility] [address] 98030- 0057 May, [facility] [id number] [place] [address] 09218- 9266 Apr, Diarrhea R19.7 [facility] [address] 89349- 4665 Apr, [facility] [id number] [place] [address] 82674- 3404 Apr, Chronic pain syndrome G89.4 [facility] [id number] [place] [address] 62705- 9536 Apr, Cramp of both lower extremities R25.2 and Vascular dementia without behavioral disturbance F01.50 [facility] [id number] [place] [address] 92168- 7093 03 Apr, 2016 Type 2 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 and Cigarette nicotine dependence without complication F17.210 [facility] [id number] [place] [address] 47978- 6500 Mar, Generalized anxiety disorder F41.1 [facility] [id number] [place] [address] 92062- 2485 Feb, Generalized anxiety disorder F41.1 and Major depressive disorder, recurrent episode, moderate F33.1 [facility] [id number] [place] [address] 33035- 6229 Feb, [facility] [id number] [place] [address] 18120 -9539 Feb, Dysuria R30.0 and Acute cystitis with hematuria N30.01 [facility] [id number] [place] [address] 64579- 8513 Jan, [facility] [id number] [place] [address] 85653- 2401 Jan, [facility] [id number] [place] [address] 94827- 5393 Jan, [facility] [id number] [place] [address] 29965- 1509 Jan, [facility] [id number] [place] [address] 04789 -0784 Jan, Wasp sting, accidental or unintentional, initial encounter T63.461A [facility] [id number] [place] [address] 54307- 6549 06 Jan, 2016 Encounter for immunization Z23 [facility] [id number] [place] [address] 34207- 3788 Jan, [facility] [id number] [place] [address] 97631- 7246 Jan, [facility] [address] [place] [address] 35348- 5335 Dec, Generalized anxiety disorder F41.1 and Major depressive disorder, recurrent episode, moderate F33.1 [facility] [address] [place] [address] 67457- 6814 Dec, Routine gynecological examination Z01.419 ; Postmenopausal Z78.0 ; Screening breast examination Z12.39 ; Osteopenia M85.80 and Breast cancer screening Z12.39 [facility] [address], [place] [address]- 0015 20 Dec, 2015 [facility] [address], [place] [address]- 0432 19 Dec, 2015 [facility] [address], [place] [address]- 6678 16 Dec, 2015 [facility] [address], [place] [address]- 5802 16 Dec, 2015 [facility] [address], [place] [address]- 9542 14 Dec, 2015 [facility] [address], [place] [address]- 3194 Dec, [facility] [address], [place] [address]- 2531 Nov, [facility] [address], [place] [address] Nov, Cough R05 ; Other viral agents as the cause of diseases classified elsewhere B97.89 and Acute upper respiratory infection, unspecified J06.9 [facility] [address], [place] [address]- 5206 Nov, [facility] [address], [place] [address]- 5928 Nov, [facility] [address], [place] [address]- 9073 Nov, [facility] [address], [place] [address]- 4735 Nov, [facility] [address], [place] [address]- 7325 Nov, [facility] [address] [place] [address]- 2606 Oct, [facility] [id number] [place] [address] 73656- 9022 18 Oct, 2015 [facility] [id number] [place] [address] 40052- 5585 14 Oct, 2015 [facility] [id number] [place] [address] 55647- 9802 Oct, Chronic pain syndrome G89.4 [facility] [address] 31686- 2651 29 Sep, 2015 Generalized anxiety disorder F41.1 and Major depressive disorder, recurrent episode, moderate F33.1 [facility] [id number] [place] [address] 16988- 0018 Sep, [facility] [id number] [place] [address] 20767- 4020 Sep, [facility] [id number] [place] [address] 69977- 3974 Sep, Generalized anxiety disorder F41.1 [facility] [id number] [place] [address] 29289- 8339 13 Sep, 2015 Cramp of both lower extremities R25.2 and Cervicalgia M54.2 [facility] [id number] [place] [address] 40504- 6588 06 Sep, 2015 Generalized anxiety disorder F41.1 [facility] [id number] [place] [address] 87356- 7945 Sep, [facility] [id number] [place] [address] 91717 -9278 August, Rash R21 ; Itching L29.9 and Allergic response, subsequent encounter T78.40XD [facility] [id number] [place] [address] 54938- 5419 August, Primary insomnia F51.01 [facility] [id number] [place] [address] 01641 -1824 August, Rash R21 ; Itching L29.9 and Allergic response, initial encounter T78.40XA [facility] [id number] [place] [address] 21050- 2180 August, [facility] [id number] [place] [address] 29110- 1402 August, Cramp of both lower extremities R25.2 [facility] [id number] [place] [address] 63824- 8064 August, Back pain M54.9 [facility] [id number] [place] [address] 30285- 1549 August, [facility] [id number] [place] [address] 58590- 1628 August, [facility] [id number] [place] [address] 73432 -1367 August, Cramp of both lower extremities R25.2 [facility] [id number] [place] [address] 70554- 6297 August, [facility] [id number] [place] [address] 76101- 5888 August, Syncope R55 ; Paroxysmal atrial fibrillation I48.0 ; Dementia without behavioral disturbance, unspecified dementia type F03.90 and Chronic pain syndrome G89.4 [facility] [address] [place] [address] 06221- 5293 August, Type 2 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 and Syncope R55 [facility] [id number] [place] [address] 83035- 0733 Jul, [facility] [id number] [place] [address] 45815- 6945 Jul, [facility] [id number] [place] [address] 33987- 1409 Jul, [facility] [id number] [place] [address] 22094- 0700 Jul, [facility] [address] [address] 1521 Jul, [facility] [id number] [place] [address] 67712- 7427 19 Jul, 2015 UTI (urinary tract infection) N39.0 [facility] [id number] [place] [address] 72870- 5139 18 Jul, 2015 [facility] [id number] [place] [address] 71650- 5843 18 Jul, 2015 Major depressive disorder, recurrent episode, moderate F33.1 and Generalized anxiety disorder F41.1 [facility] [id number] [place] [address] 27878- 1670 Jul, Generalized anxiety disorder F41.1 [facility] [id number] [place] [address] 36678- 1339 Jul, Diarrhea R19.7 [facility] [id number] [place] [address] 11383- 5658 Jul, [facility] [id number] [place] [address] 22063- 5601 Jun, [facility] [address] [address]- 6056 Jun, Eczema L30.9 [facility] [address] [address]- 8321 Jun, [facility] [address] [address]- 2726 17 Jun, 2015 COPD (chronic obstructive pulmonary disease) J44.9 [facility] [address] [address]- 7777 16 Jun, 2015 [facility] [address] [address]- 6820 02 Jun, 2015 Major depressive disorder, recurrent episode, moderate F33.1 and Generalized anxiety disorder F41.1 [facility] [address] [address]- 9604 May, [facility] [address] [address]- 0760 May, UTI (urinary tract infection) N39.0 [facility] [address] [address]- 6536 May, [facility] [address] [address]- 2754 May, [facility] [id number] [place] [address] 68178- 1141 May, [facility] [id number] [place] [address] 91028- 7192 May, [facility] [id number] [place] [address] 72203- 8003 Apr, Major depressive disorder, recurrent episode, moderate F33.1 and Generalized anxiety disorder F41.1 [facility] [address] [address]- 7551 Apr, COPD (chronic obstructive pulmonary disease) J44.9 [facility] [address] [address]- 2249 Apr, [facility] [address] [address]- 6916 Apr, Atrial flutter I48.92 [facility] [address] [address]- 8058 Apr, [facility] [address] [place] [address]- 3510 Apr, [facility] [address] [address]- 7826 Mar, [facility] [address], [place] [address]- 8120 Mar, [facility] [id number] [place] [address] 13226- 9547 Mar, [facility] [id number] [place] [address] 14486- 2426 Mar, Hyperlipidemia E78.5 ; Type 2 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 ; Major depressive disorder, recurrent episode, moderate F33.1 and Chronic pain syndrome G89.4 [facility] [id number] [place] [address] 25407- 7615 Mar, [facility] [id number] [place] [address] 56091- 1384 Mar, [facility] [id number] [place] [address] 35026- 5270 Mar, [facility] [id number] [place] [address] 87786- 3078 Mar, [facility] [id number] [place] [address] 40121- 6387 Feb, COPD (chronic obstructive pulmonary disease) J44.9 and Back pain M54.9 [facility] [id number] [place] [address] 01952- 0000 Feb, [facility] [id number] [place] [address] 46488- 2922 Feb, [facility] [id number] [place] [address] 56449- 0563 Feb, [facility] [id number] [place] [address] 80689- 8399 Feb, [facility] [id number] [place] [address] 57228- 5804 Feb, [facility] [id number] [place] [address] 98386- 0037 Feb, [facility] [id number] [place] [address] 41267- 0159 Feb, [facility] [id number] [place] [address] 39909- 1354 Feb, [facility] [id number] [place] [address] 53988- 0625 Feb, Diabetes E11.9 ; Back pain M54.9 and COPD (chronic obstructive pulmonary disease) J44.9 [facility] [id number] [place] [address] 41604- 5822 Jan, [facility] [id number] [place] [address] 76701- 3517 Jan, Major depression, recurrent F33.9 and Generalized anxiety disorder F41.1 [facility] [id number] [place] [address] 09188- 6561 Jan, Chronic pain G89.29 [facility] [id number] [place] [address] 49813- 8834 Jan, [facility] [id number] [place] [address] 28338- 1310 Jan, [facility] [id number] [place] [address] 92829- 0877 Jan, [facility] [id number] [place] [address] 34412- 3685 Jan, [facility] [id number] [place] [address] 94500- 7028 Jan, Nicotine dependence F17.200 [facility] [id number] [place] [address] 06465- 7506 Jan, Nicotine dependence F17.200 and Back pain M54.9 [facility] [id number] [place] [address] 88074- 0873 Jan, [facility] [id number] [place] [address] 59761- 2949 Dec, [facility] [address], [place] [address]- 7066 25 Dec, 2014 Anxiety, generalized 300.02 and Major depression, recurrent 296.30 [facility] [id number] [place] [address] 56881- 6636 24 Dec, 2014 [facility] [address], [place] [address]- 1111 21 Dec, 2014 [facility] [id number] [place] [address] 28272- 1663 17 Dec, 2014 [facility] [id number] [place] [address] 87515- 0754 15 Dec, 2014 [facility] [id number] [place] [address] 33051- 5058 14 Dec, 2014 [facility] [id number] [place] [address] 40960- 5626 11 Dec, 2014 [facility] [id number] [place] [address] 14016- 8088 10 Dec, 2014 [facility] [id number] [place] [address] 33406- 3204 08 Dec, 2014 Skin tear 879.8 [facility] [address], [place] [address]- 4428 08 Dec, 2014 Routine gynecological examination V72.31 ; Breast cancer screening V76.10 and Family history of breast cancer in first degree relative V16.3 [facility] [address], [place] [address]- 0170 03 Dec, 2014 [facility] [address], [place] [address]- 2260 Dec, [facility] [address], [place] [address]- 1988 Nov, [facility] [address], [place] [address]- 4858 Nov, [facility] [id number] [place] [address]- 9483 Nov, Poor balance 781.99 and Vascular dementia, uncomplicated 290.40 [facility] [id number] [place] [address] 83599- 5146 Nov, [facility] [id number] [place] [address] 80490- 9103 Nov, Major depression, recurrent 296.30 and Anxiety, generalized 300.02 [facility] [id number] [place] [address] 45882- 2671 Nov, [facility] [id number] [place] [address] 46999- 3988 Nov, [facility] [id number] [place] [address] 88152- 8748 Nov, [facility] [id number] [place] [address] 97709- 2736 Nov, [facility] [id number] [place] [address] 18903- 8811 Nov, Vascular dementia, uncomplicated 290.40 and Lumbago 724.2 [facility] [id number] [place] [address] 60216- 1865 Nov, [facility] [id number] [place] [address] 22276- 9032 Nov, [facility] [id number] [place] [address] 35113- 6355 Nov, [facility] [id number] [place] [address] 52093- 0129 Oct, [facility] [id number] [place] [address] 69890- 1802 Oct, [facility] [id number] [place] [address] 74591- 1575 Oct, [facility] [id number] [place] [address] 52366- 4319 Oct, COPD (chronic obstructive pulmonary disease) 496 and Hyperlipidemia 272.4 [facility] [id number] [place] [address] 23739- 2134 Oct, Major depression, recurrent 296.30 and Anxiety, generalized 300.02 [facility] [id number] [place] [address] 18264- 4724 Oct, [facility] [id number] [place] [address] 95632- 6634 Oct, [facility] [id number] [place] [address] 88757- 1263 Oct, [facility] [id number] [place] [address] 61316- 9332 Sep, Lumbago 724.2 and Anxiety state, unspecified 300.00 [facility] [id number] [place] [address] 20792- 3245 Sep, [facility] [id number] [place] [address] 34117- 7405 Sep, [facility] [id number] [place] [address] 41315- 1073 August, [facility] [id number] [place] [address] 53360- 2753 August, Major depression, recurrent 296.30 ; Anxiety, generalized 300.02 and No condition on [place] II V71.09 [facility] [address], [place] [address]- 6649 August, [facility] [id number] [place] [address] 04080- 4199 August, [facility] [id number] [place] [address] 04255- 8241 Jul, [facility] [id number] [place] [address] 99081- 8367 Jul, [facility] [place] [facility] [address] [id number] [place] [address] 2546 13 Jul, 2014 [facility] [place] [facility] [address] [id number] [place] [address]- 5306 30 Jun, 2014 [facility] [place] [facility] [address] [id number] [place] [address]- 9436 30 Jun, 2014 [facility] [place] [facility] [address] [id number] [place] [address]- 5016 27 Jun, 2014 [facility] [place] [facility] [address] [id number] [place] [address]- 0567 27 Jun, 2014 [facility] [place] [facility] [address] [id number] [place] [address]- 0972 26 Jun, 2014 [facility] [place] [facility] [address] [id number] [place] [address]- 2708 Jun, [facility] [place] [facility] [address] [id number] [place] [address]- 4478 23 Jun, 2014 [facility] [place] [facility] [address] [id number] [place] [address]- 7645 17 Jun, 2014 [facility] [place] [facility] [address] [id number] [place] [address]- 6622 13 Jun, 2014 [facility] [place] [facility] [address] [id number] [place] [address]- 7158 13 Jun, 2014 [facility] [place] [facility] [address] [id number] [place] [address]- 7475 10 Jun, 2014 [facility] [place] [facility] [address] [id number] [place] [address]- 5298 10 Jun, 2014 [facility] [place] [facility] [address] [id number] [place] [address]- 9696 07 Jun, 2014 [facility] [place] [facility] [address] [id number] [place] [address]- 2546 07 Jun, 2014 [facility] [place] [facility] [address] [id number] [place] [address]- 6878 Jun, 2014 [facility] [place] [facility] [address] [facility] [id number] [place] [address]- 0950 Jun, [facility] [place] [facility] [address] [facility] [id number] [place] [address]- 3986 May, 2014 [facility] [place] [facility] [address] [facility] [id number] [place] [address]- 8424 May, 2014 [facility] [place] [facility] [address] [facility] [id number] [place] [address]- 9497 May, 2014 [facility] [place] [facility] [address] [facility] [id number] [place] [address]- 0584 May, 2014 [facility] [place] [facility] [address] [facility] [id number] [place] [address]- 2985 May, 2014 [facility] [place] [facility] [id number] [address]- 9196 May, 2014 [facility] [place] [facility] [address] [facility] [id number] [place] [address]- 4244 May, 2014 [facility] [place] [facility] [address] [facility] [id number] [place] [address]- 7334 May, 2014 [facility] [place] [facility] [address] [facility] [id number] [place] [address]- 8840 May, 2014 [facility] [place] [facility] [address] [facility] [id number] [place] [address]- 4975 May, 2014 [facility] [place] [facility] [address] [facility] [id number], [place] [address]- 2547 May, 2014 [facility] [place] [facility] [address] [facility] [id number] [place] [address]- 6985 May, 2014 [facility] [place] [facility] [address] [facility] [id number], [place] [address]- 0436 May, 2014 [facility] [place] [facility] [address] [facility] [id number] [place] [address]- 8576 May, [facility] [place] [facility] [address] [id number] [place] [address]- 5944 Apr, [facility] [place] [facility] [address] [id number] [place] [address]- 9862 Apr, [facility] [place] [facility] [address] [id number] [place] [address]- 3249 Apr, [facility] [place] [facility] [address] [id number] [place] [address]- 7032 Apr, [facility] [place] [facility] [address] [id number] [place] [address]- 3360 Apr, [facility] [place] [facility] [address] [id number] [place] [address]- 2689 Apr, [facility] [place] [facility] [address] [id number] [place] [address]- 7010 Apr, [facility] [place] [facility] [address] [id number] [place] [address]- 4428 Apr, [facility] [place] [facility] [address] [id number] [place] [address]- 2733 Apr, [facility] [place] [facility] [address] [id number] [place] [address]- 0035 Apr, [facility] [place] [facility] [address] [id number] [place] [address]- 2691 Apr, [facility] [place] [facility] [address] [id number], [place] [address]- 0513 Apr, [facility] [place] [facility] [address] [id number] [place] [address]- 7058 Mar, [facility] [place] [facility] [address] [id number] [place] [address]- 4277 Mar, [facility] [place] [facility] [address] [id number] [place] [address]- 7680 Mar, [facility] [place] [facility] [address] [id number] [place] [address]- 9025 30 Mar, 2014 [facility] [place] [facility] [address] [id number] [place] [address]- 9626 29 Mar, 2014 [facility] [place] [facility] [address] [id number] [place] 8246 29 Mar, 2014 [facility] [place] [facility] [address] [id number] [place] [address]- 1476 Mar, [facility] [place] [facility] [address] [id number] [place] [address]- 8771 Mar, [facility] [place] [facility] [address] [id number] [place] [address]- 0711 15 Mar, 2014 [facility] [place] [facility] [address] [id number] [place] [address]- 0357 15 Mar, 2014 [facility] [place] [facility] [address] [id number] [place] [address]- 8422 15 Mar, 2014 [facility] [place] [facility] [address] [id number] [place] [address]- 9807 15 Mar, 2014 [facility] [place] [facility] [address] [id number] [place] [address]- 5262 Mar, [facility] [place] [facility] [address] [id number] [place] [address]- 5561 15 Mar, 2014 [facility] [place] [facility] [address] [id number] [place] [address]- 9708 08 Mar, 2014 [facility] [place] [facility] [address] [id number] [place] [address]- 7685 Mar, [facility] [place] [facility] [address] [id number] [place] [address]- 4949 Mar, [facility] [place] [facility] [address] [id number] [place] [address]- 6089 Mar, [facility] [place] [facility] [address] [id number] [place] [address]- 5373 Mar, [facility] [place] [facility] [address] [id number] [place] [address]- 6331 Mar, [facility] [place] [facility] [address] [id number] [place] [address]- 4148 Feb, [facility] [place] [facility] [address] [id number] [place] [address]- 1350 Feb, [facility] [place] [facility] [address] [id number] [place] [address]- 4889 Feb, [facility] [place] [facility] [address] [id number] [place] [address]- 4348 Feb, [facility] [place] [facility] [address] [id number] [place] [address]- 1267 Feb, [facility] [place] [facility] [address] [id number] [place] [address]- 6387 Feb, [facility] [place] [facility] [address] [id number] [place] [address]- 9495 Feb, [facility] [place] [facility] [address] [id number] [place] [address]- 8630 Feb, [facility] [place] [facility] [address] [id number] [place] [address]- 5503 Feb, [facility] [place] [facility] [address] [id number] [place] [address]- 5249 Feb, [facility] [place] [facility] [address] [id number] [place] [address]- 9847 Feb, [facility] [place] [facility] [address] [id number] [place] [address]- 9741 Feb, [facility] [place] [facility] [address] [id number] [place] [address]- 7391 Feb, [facility] [place] [facility] [address] [id number] [place] [address]- 6113 Feb, [facility] [place] [facility] [address] [id number] [place] [address]- 8600 Feb, [facility] [place] [facility] [address] [id number] [place] [address]- 4391 Feb, [facility] [place] [facility] [address] [id number] [place] [address]- 5784 Feb, [facility] [place] [facility] [address] [id number] [place] [address]- 0386 Jan, [facility] [place] [facility] [address] [id number] [place] [address]- 7684 Jan, [facility] [place] [facility] [address] [id number] [place] [address]- 1912 Jan, [facility] [place] [facility] [address] [id number] [place] [address]- 3658 Jan, [facility] [place] [facility] [address] [id number] [place] [address]- 4493 Jan, [facility] [place] [facility] [address] [id number] [place] [address] Jan, [facility] [place] [facility] [address] [id number] [place] [address] Jan, [facility] [place] [facility] [address] [id number] [place] [address] Jan, [facility] [place] [facility] [address] [id number] [place] [address] Jan, [facility] [place] [facility] [address] [id number] [address] Jan, [facility] [place] [facility] [address] [id number] [place] [address] Jan, [facility] [place] [facility] [address] [id number] [place] [address] Dec, [facility] [place] [facility] [address] [id number] [place] [address] Dec, [facility] [place] [facility] [address] [id number] [place] [address] Nov, [facility] [place] [facility] [address] [id number] [place] [address] Nov, [facility] [place] [facility] [address] [id number] [place] [address] Nov, [facility] [place] [facility] [address] [id number] [place] [address] Nov, [facility] [place] [facility] [address] [id number] [place] [address] Nov, [facility] [place] [facility] [address] [id number] [place] [address] Nov, [facility] [place] [facility] [address] [id number] [place] [address] Nov, [facility] [place] [facility] [address] [id number] [place] [address] Oct, [facility] [place] [facility] [address] [id number] [place] [address] Oct, [facility] [place] [facility] [address] [id number] [place] [address] Oct, [facility] [place] [facility] [address] [id number] [place] [address] Oct, [facility] [place] [facility] [address] [id number] [place] [address] Sep, [facility] [place] [facility] [address] [id number] [place] [address] Sep, [facility] [place] [facility] [address] [id number] [place] [address] Sep, [facility] [place] [facility] [address] [id number] [place] [address] Sep, [facility] [place] [facility] [address] [id number] [place] [address] Sep, [facility] [place] [facility] [address] [id number] [place] [address] Sep, [facility] [place] [facility] [address] [id number] [place] [address] Sep, [facility] [place] [facility] [address] [id number] [place] [address] Sep, [facility] [place] [facility] [address] [id number] [place] [address] Sep, [facility] [place] [facility] [address] [id number] [place] [address] Sep, [facility] [place] [facility] [address] [id number] [place] [address] Sep, [facility] [place] [facility] [address] [id number] [place] [address] Sep, [facility] [place] [facility] [address] [id number] [place] [address] Sep, [facility] [place] [facility] [address] [id number] [place] [address] Sep, [facility] [place] [facility] [address] [id number] [place] [address] August, [facility] [place] [facility] [address] [id number] [place] [address] August, [facility] [place] [facility] [address] [id number] [place] [address] August, [facility] [place] [facility] [address] [id number] [place] [address] August, [facility] [place] [facility] [address] [id number] [place] [address] August, [facility] [place] [facility] [address] [id number] [place] [address] August, [facility] [place] [facility] [address] [id number] [place] [address] August, [facility] [place] [facility] [address] [id number] [place] [address] August, [facility] [place] [facility] [address] [id number] [place] [address] August, [facility] [place] [facility] [address] [id number] [place] [address] August, [facility] [place] [facility] [address] [id number] [place] [address] August, [facility] [place] [facility] [address] [id number] [place] [address] August, [facility] [place] [facility] [address] [id number] [place] [address] 8[address] August, [facility] [place] [facility] [address] [id number] [place] [address] 6[address] August, [facility] [place] [facility] [address] [id number] [place] [address] 92[address] August, [facility] [place] [facility] [address] [id number] [place] [address] 4[address] August, [facility] [place] [facility] [address] [id number] [place] [address] 1083 August, [facility] [place] [facility] [address] [id number] [place] [address] 8[address] August, [facility] [place] [facility] [address] [id number] [place] [address] 38[address] August, [facility] [place] [facility] [address] [id number] [place] [address]- 3270 Jul, [facility] [place] [facility] [address] [id number] [place] [address]- [address] Jul, [facility] [place] [facility] [address] [id number] [place] [address]- 8575 Jul, [facility] [place] [facility] [address] [id number] [place] [address]- 2[address] 08 Jul, 2013 [facility] [place] [facility] [address] [id number] [place] [address]- 1411 27 Jun, 2013 [facility] [place] [facility] [address] [id number] [place] [address]- 0766 27 Jun, 2013 [facility] [place] [facility] [address] [id number] [place] [address]- 0388 24 Jun, 2013 [facility] [place] [facility] [address] [id number] [place] [address]- 7978 24 Jun, 2013 [facility] [place] [facility] [address] [id number] [place] [address]- 7548 17 Jun, 2013 [facility] [place] [facility] [address] [id number] [place] [address]- 7691 17 Jun, 2013 [facility] [place] [facility] [address] [id number] [place] [address]- 4422 14 Jun, 2013 [facility] [place] [facility] [address] [id number] [place] [address]- 8806 14 Jun, 2013 [facility] [place] [facility] [address] [id number] [place] [address]- 5882 Jun, [facility] [place] [facility] [address] [id number] [place] [address]- 0029 Jun, [facility] [place] [facility] [address] [id number] [place] [address]- 4844 May, [facility] [place] [facility] [address] [id number] [place] [address]- 1014 May, [facility] [place] [facility] [address] [id number] [place] [address]- 4540 May, [facility] [place] [facility] [address] [id number] [place] [address]- 0559 May, [facility] [place] [facility] [address] [id number] [place] [address]- 8118 May, [facility] [place] [facility] [address] [id number] [place] [address]- 2636 May, [facility] [place] [facility] [address] [id number] [place] [address]- 8586 20 May, 2013 [facility] [place] [facility] [address] [facility] [id number] [place] [address]- 7666 May, [facility] [place] [facility] [address] [id number] [place] [address]- 9295 May, [facility] [place] [facility] [address] [id number] [place] [address]- 7908 May, [facility] [place] [facility] [address] [facility] [id number] [place] [address]- 2274 May, [facility] [place] [facility] [address] [facility] [id number] [place] [address]- 8363 17 May, 2013 [facility] [place] [facility] [address] [facility] [id number] [place] [address]- 0525 May, [facility] [place] [facility] [address] [facility] [id number] [place] [address]- 9336 May, [facility] [place] [facility] [address] [facility] [id number] [place] [address]- 4672 10 May, 2013 [facility] [place] [facility] [address] [facility] [id number] [place] [address]- 3633 07 May, 2013 [facility] [place] [facility] [address] [facility] [id number] [place] [address]- 1170 07 May, 2013 [facility] [place] [facility] [address] [facility] [id number] [place] [address]- 2894 Apr, [facility] [place] [facility] [address] [facility] [id number], [place] [address]- [address]10 15 Apr, 2013 [facility] [place] [facility] [address] [facility] [id number], [place] [address] 8197 15 Apr, 2013 [facility] [place] [facility] [address] [id number] [place] [address]- 2428 Apr, [facility] [address] [id number] [place] [address]- 1873 Apr, [facility] [place] [facility] [address] [id number] [place] [address]- 4740 Apr, [facility] [address] [id number] [place] [address]- 8235 Apr, [facility] [address] [id number] [place] [address]- 1154 Mar, [facility] [place] [facility] [address] [id number] [place] [address]- 0952 Mar, [facility] [address] [id number] [place] [address]- 9586 Mar, [facility] [address] [id number] [place] [address]- 1746 Mar, [facility] [address] [id number] [place] [address]- 5597 Mar, [facility] [place] [facility] [address] [id number] [place] [address]- 7638 Mar, [facility] [place] [facility] [address] [id number] [place] [address]- 1532 Mar, [facility] [place] [facility] [address] [id number] [place] [address]- 3892 Mar, [facility] [place] [facility] [address] [id number] [place] [address]- 5786 Mar, [facility] [place] [facility] [address] [id number] [place] [address]- 3357 Mar, [facility] [place] [facility] [address] [id number] [place] [address]- 2297 Mar, [facility] [place] [facility] [address] [id number], [place] [address] 7196 Feb, [facility] [place] [facility] [address] [id number] [place] [address]- 1754 Feb, [facility] [place] [facility] [address] [id number] [place] [address]- 1782 Feb, [facility] [place] [facility] [address] [id number] [place] [address]- 8709 20 Feb, 2013 [facility] [place] [facility] [address] [id number], [place] [address]- 3564 Feb, [facility] [place] [facility] [address] [id number] [place] [address]- 1902 19 Feb, 2013 [facility] [place] [facility] [address] [id number], [place] [address]- 1590 15 Feb, 2013 [facility] [place] [facility] [address] [id number], [place] [address]- 3527 14 Feb, 2013 [facility] [place] [facility] [address] [id number], [place] [address]- 2766 14 Feb, 2013 [facility] [place] [facility] [address] [id number], [place] [address]- 6276 Feb, [facility] [place] [facility] [address] [id number], [place] [address]- 0477 Feb, [facility] [place] [facility] [address] [id number], [place] [address]- 1885 12 Feb, 2013 [facility] [place] [facility] [address] [id number], [place] [address]- 9838 12 Feb, 2013 [facility] [place] [facility] [address] [id number], [place] [address]- 1047 Feb, [facility] [place] [facility] [address] [id number], [place] [address]- 1354 05 Feb, 2013 [facility] [place] [facility] [address] [id number], [place] [address]- 0891 05 Feb, 2013 [facility] [place] [facility] [address] [id number] [place] [address]- 3210 Jan, [facility] [address] [id number] [place] [address]- 4271 Jan, [facility] [place] [facility] [address] [id number] [place] [address]- 8825 Jan, [facility] [address] [id number] [place] [address]- 2243 Jan, [facility] [place] [facility] [address] [id number] [place] [address]- 2739 Jan, [facility] [address] [id number] [place] [address]- 1971 Jan, [facility] [place] [facility] [address] [id number] [place] [address]- 5817 Jan, [facility] [place] [facility] [address] [id number] [place] [address]- 3699 Jan, [facility] [place] [facility] [address] [id number] [place] [address]- 5154 10 Jan, 2013 [facility] [place] [facility] [address] [id number] [place] [address]- 6015 27 Dec, 2012 [facility] [place] [facility] [address] [id number] [place] [address]- 3099 20 Dec, 2012 [facility] [place] [facility] [address] [id number] [place] [address] 2547 19 Dec, 2012 [facility] [place] [facility] [address] [id number] [place] [address]- 254 10 Dec, 2012 [facility] [place] [facility] [address] [id number] [place] [address] 2549 04 Dec, 2012 [facility] [place] [facility] [address] [id number] [place] [address]- 2549 03 Dec, 2012 [facility] [place] [facility] [address] [id number] [place] [address]- 6973 Nov, [facility] [place] [facility] [address] [id number] [place] [address]- 1571 Nov, [facility] [place] [facility] [address] [id number] [place] [address]- 5316 Nov, [facility] [place] [facility] [address] [id number] [place] [address]- 3231 Nov, [facility] [place] [facility] [address] [id number] [place] [address]- 2921 Nov, [facility] [place] [facility] [address] [id number] [place] [address]- 0759 Nov, [facility] [place] [facility] [address] [id number] [place] [address]- 5165 Nov, [facility] [place] [facility] [address] [id number] [place] [address]- 0847 Nov, [facility] [place] [facility] [address] [id number] [place] [address]- 0103 Nov, [facility] [place] [facility] [address] [id number] [place] [address]- 4121 Nov, [facility] [place] [facility] [address] [id number] [place] [address]- 8028 Oct, [facility] [place] [facility] [address] [id number] [place] [address]- 7101 Oct, [facility] [place] [facility] [address] [id number] [place] [address]- 9502 Oct, [facility] [place] [facility] [address] [id number] [place] [address]- 8005 Oct, [facility] [place] [facility] [address] [id number] [place] [address]- 6825 Oct, [facility] [place] [facility] [address] [id number] [place] [address]- 4069 Oct, [facility] [place] [facility] [address] [id number] [place] [address]- 1578 Oct, [facility] [address] [id number] [place] [address]- 3371 Oct, [facility] [place] [facility] [address] [id number] [place] [address]- 8052 Sep, [facility] [address] [id number] [place] [address]- 5244 Sep, [facility] [place] [facility] [address] [id number] [place] [address]- 1171 Sep, [facility] [address] [id number] [place] [address]- 6573 Sep, [facility] [address] [id number] [place] [address]- 7616 Sep, [facility] [address] [id number] [place] [address]- 3558 Sep, [facility] [place] [facility] [address] [id number] [place] [address]- 7983 Sep, [facility] [address] [id number] [place] [address]- 7244 Sep, [facility] [place] [facility] [address] [id number] [place] [address]- 5530 August, [facility] [address] [id number] [place] [address]- 2383 August, [facility] [place] [facility] [address] [id number] [place] [address]- 7158 August, [facility] [place] [facility] [address] [id number] [place] [address]- 2942 August, [facility] [place] [facility] [address] [id number] [place] [address]- 5947 August, [facility] [place] [facility] [address] [id number] [place] [address]- 1155 Jul, [facility] [place] [facility] [address] [id number] [place] [address]- 4156 Jul, [facility] [address] [id number] [place] [address]- 5846 Jul, [facility] [place] [facility] [address] [id number] [place] [address]- 4666 Jul, [facility] [address] [id number] [place] [address]- 8315 Jul, [facility] [address] [id number] [place] [address]- 5887 Jun, [facility] [address] [id number] [place] [address]- 4474 18 Jun, 2012 [facility] [address] [id number] [place] [address]- 7165 15 Jun, 2012 [facility] [address] [id number] [place] [address]- 5883 14 Jun, 2012 [facility] [address] [id number] [place] [address]- 7406 Jun, [facility] [address] [id number] [place] [address]- 8904 Jun, [facility] [address] [id number] [place] [address]- 7422 Jun, [facility] [place] [facility] [address] [id number] [place] [address]- 8092 Jun, [facility] [place] [facility] [address] [id number] [place] [address]- 5253 Jun, [facility] [place] [facility] [address] [id number] [place] [address]- 8841 May, [facility] [place] [facility] [address] [id number] [place] [address]- 6316 May, [facility] [place] [facility] [address] [id number] [place] [address]- 4107 May, [facility] [address] [id number] [place] [address]- 4088 May, [facility] [address] [id number], [place] [address]- 6504 Apr, [facility] [address] [facility] [id number], [place] [address]- 6906 Apr, [facility] [address] [id number], [place] [address]- 3097 Apr, [facility] [address] [id number] [place] [address]- 3966 Apr, [facility] [address] [facility] [id number], [place] [address]- 5017 Apr, [facility] [address] [id number], [place] [address]- 3143 Apr, [facility] [address] [id number], [place] [address]- 6010 Apr, [facility] [address] [facility] [id number], [place] [address]- 5040 Mar, [facility] [place] [id number] Mar, [facility] [address] [id number], [place] [address]- 3447 Mar, [facility] [address] [id number], [place] [address]- 4670 Mar, [facility] [address] [id number], [place] [address]- 2068 Mar, [facility] [address] [id number], [place] [address]- 5161 Mar, [facility] [address] [facility] [id number], [place] [address]- 8316 Mar, [facility] [address] [id number], [place] [address]- 5837 Mar, [facility] [place] [facility] [address] [id number] [place] [address]- 5556 Mar, [facility] [place] [facility] [address] [id number] [place] [address]- 6856 Mar, [facility] [place] [facility] [address] [facility] [id number] [place] [address]- 7066 Mar, [facility] [place] [facility] [address] [id number] [place] [address]- 6969 Mar, [facility] [place] [facility] [address] [id number] [place] [address]- 5916 Mar, [facility] [place] [facility] [address] [id number] [place] [address]- 8401 Mar, [facility] [place] [facility] [id number] [place] [address]- 3711 Mar, [facility] [place] [facility] [address] [id number] [place] [address]- 2867 Mar, [facility] [place] [facility] [address] [id number] [place] [address]- 2499 Mar, [facility] [place] [facility] [address] [facility] [id number] [place] [address]- 5313 Feb, [facility] [place] [facility] [address] [id number] [place] [address]- 5734 Feb, [facility] [place] [facility] [address] [id number], [place] [address]- 4314 Feb, [facility] [place] [facility] [address] [id number] [place] [address]- 0114 Feb, [facility] [place] [facility] [address] [facility] [id number] [place] [address]- 8326 Feb, [facility] [place] [facility] [address] [id number] [place] [address]- 5812 Feb, [facility] [place] [facility] [address] [id number] [place] [address]- 1104 Feb, [facility] [place] [facility] [address] [id number] [place] [address]- 2853 Feb, [facility] [place] [facility] [address] [id number] [place] [address]- 1836 Feb, [facility] [place] [facility] [address] [id number] [place] [address]- 6556 Feb, [facility] [place] [facility] [address] [id number] [place] [address]- 6437 Feb, [facility] [place] [facility] [address] [id number] [place] [address]- 5847 Feb, [facility] [place] [facility] [address] [id number] [place] [address]- 9960 Feb, [facility] [place] [facility] [address] [id number] [place] [address]- 2366 Feb, [facility] [place] [facility] [address] [id number] [place] [address]- 9878 Feb, [facility] [place] [facility] [address] [id number] [place] [address]- 1840 Feb, [facility] [place] [facility] [address] [id number] [place] [address]- 6889 Jan, [facility] [place] [facility] [address] [id number] [place] [address]- 8383 Jan, [facility] [place] [facility] [address] [id number] [place] [address]- 2634 Jan, [facility] [place] [facility] [address] [id number] [place] [address]- 7112 Jan, [facility] [place] [facility] [address] [id number] [place] [address]- 4212 Jan, [facility] [place] [facility] [address] [id number] [place] [address]- 9438 Jan, [facility] [place] [facility] [address] [id number] [place] [address]- 0486 Jan, [facility] [place] [facility] [address] [id number] [place] [address]- 2802 Jan, [facility] [place] [facility] [address] [id number] [place] [address] Jan, [facility] [place] [facility] [address] [id number] [place] [address] Jan, [facility] [place] [facility] [address] [id number] [place] [address] Jan, [facility] [place] [facility] [address] [id number] [place] [address] Jan, [facility] [place] [facility] [address] [id number] [place] [address] Jan, [facility] [place] [facility] [address] [id number] [place] [address] Jan, [facility] [place] [facility] [address] [id number] [place] [address] Jan, [facility] [place] [facility] [address] [id number] [place] [address] Jan, [facility] [place] [facility] [address] [id number], [place] [address] Jan, [facility] [place] [facility] [address] [id number], [place] [address] 21 Dec, 2011 [facility] [place] [facility] [address] [id number] [place] [address] 20 Dec, 2011 [facility] [place] [facility] [address] [id number], [place] [address] 18 Dec, 2011 [facility] [place] [facility] [address] [id number] [place] [address] 18 Dec, 2011 [facility] [place] [facility] [address] [id number] [place] [address] 10 Dec, 2011 [facility] [place] [facility] [address] [id number] [place] [address]46 10 Dec, 2011 [facility] [place] [facility] [address] [id number] [place] [address]46 10 Dec, 2011 [facility] [place] [facility] [address] [id number] [place] [address]46 Dec, [facility] [place] [facility] [address] [id number] [place] [address]46 30 Nov, 2011 [facility] [place] [facility] [address] [id number] [place] [address] Nov, [facility] [place] [facility] [address] [id number] [place] [address] 2546 Nov, [facility] [place] [facility] [address] [id number] [place] [address] Nov, [facility] [place] [facility] [address] [id number] [place] [address] 2541 Nov, [facility] [place] [facility] [address] [id number] [place] [address] 2546 Nov, [facility] [place] [facility] [address] [id number] [place] [address] Oct, [facility] [place] [facility] [address] [id number] [place] [address] 2546 Oct, [facility] [place] [facility] [address] [id number] [place] [address] 2546 Oct, [facility] [place] [facility] [address] [id number] [place] [address] 2546 Oct, [facility] [place] [facility] [address] [id number] [place] [address]46 Oct, [facility] [place] [facility] [address] [id number] [place] [address] 2544 Oct, [facility] [place] [facility] [address] [id number] [place] [address] Oct, [facility] [place] [facility] [address] [id number] [place] [address] Sep, [facility] [place] [facility] [address] [id number] [place] [address] Sep, [facility] [place] [facility] [address] [id number] [place] [address] Sep, [facility] [place] [facility] [address] [id number] [place] [address] 2969 Sep, [facility] [place] [facility] [address] [id number] [place] [address] Sep, [facility] [place] [facility] [address] [id number] [place] [address] Sep, [facility] [place] [facility] [address] [id number] [place] [address] Sep, [facility] [place] [facility] [address] [id number] [place] [address] Sep, [facility] [place] [facility] [address] [id number] [place] [address] Sep, [facility] [place] [facility] [address] [id number] [place] [address] Sep, [facility] [place] [facility] [address] [id number] [place] [address] August, [facility] [place] [facility] [address] [id number] [place] [address] 47[address] August, [facility] [place] [facility] [address] [id number] [place] [address] August, [facility] [place] [facility] [address] [id number] [place] [address] August, [facility] [place] [facility] [address] [id number] [place] [address] 8387 August, [facility] [place] [facility] [address] [id number] [place] [address] Jul, [facility] [place] [facility] [address] [id number] [place] [address] Jul, [facility] [place] [facility] [address] [id number] [place] [address] Jul, [facility] [place] [facility] [address] [id number] [place] [address]- [address] Jul, [facility] [place] [facility] [address] [id number] [place] [address]- 2760 Jul, [facility] [place] [facility] [address] [id number] [place] [address]80 Jul, [facility] [place] [facility] [address] [facility] [id number] [place] [address] Jul, [facility] [place] [facility] [address] [id number] [place] [address]- 2826 Jun, [facility] [place] [facility] [address] [id number] [place] [address]- [address]75 Jun, [facility] [place] [facility] [address] [id number] [place] [address] 6[address] Jun, [facility] [place] [facility] [address] [id number] [place] [address]80 Jun, [facility] [place] [facility] [address] [id number] [place] [address] 4740 Jun, [facility] [place] [facility] [address] [id number] [place] [address] May, [facility] [place] [facility] [address] [id number] [place] [address] May, [facility] [place] [facility] [address] [id number] [place] [address] 8[address] May, [facility] [place] [facility] [address] [id number] [place] [address] May, [facility] [place] [facility] [address] [id number] [place] [address]- [address] May, [facility] [place] [facility] [address] [id number] [place] [address]- [address]109 May, [facility] [place] [facility] [id number] [place] [address], [place] [address]- [address] Apr, [facility] [place] [facility] [address] [id number] [place] [address]- [address] Mar, [facility] [place] [facility] [address] [id number] [place] [address], [place] [address]- [address]684 Feb, [facility] [place] [facility] [address] [id number] [place] [address] Feb, [facility] [place] [facility] [address] [id number] [place] [address] Feb, [facility] [place] [facility] [address] [id number] [place] [address] Feb, [facility] [place] [facility] [address] [id number] [place] [address] Jan, [facility] [place] [facility] [address] [id number] [place] [address] Jan, [facility] [place] [facility] [address] [id number] [place] [address] Jan, [facility] [place] [facility] [address] [id number] [place] [address] 24 Jan, 2011 [facility] [place] [facility] [address] [id number] [place] [address] 14 Jan, 2011 [facility] [place] [facility] [address] [id number] [place] [address] 19 Dec, 2010 [facility] [place] [facility] [address] [id number] [place] [address] Oct, [facility] [place] [facility] [address] [id number] [place] [address] August, [facility] [place] [facility] [address] [id number] [place] [address] 29 Mar, 2010 [facility] [place] [facility] [address] [id number] [place] [address] 27 Mar, 2010 [facility] [place] [facility] [address] [id number] [place] [address] 16 Mar, 2010 [facility] [place] [facility] [address] [id number] [place] [address] 15 Mar, 2010 [facility] [place] [facility] [address] [id number] [place] [address] 15 Mar, 2010 [facility] [place] [facility] [address] [id number] [place] [address] 08 Mar, 2010 [facility] [place] [facility] [address] [id number] [place] [address] Mar, [facility] [place] [facility] [address] [id number] [place] [address] Feb, [facility] [place] [facility] [address] [id number] [place] [address] 24 Feb, 2010 [facility] [place] [facility] [address] [id number], [place] [address] Feb, [facility] [place] [facility] [address] [id number] [address] Jan, [facility] [place] [facility] [address] [id number] [place] [address] Jan, [facility] [place] [facility] [address] [id number], [place] [address] Jan, [facility] [place] [facility] [address] [id number], [place] [address] Nov, [facility] [place] [facility] [address] [id number] [place] [address] 14 Sep, 2009 [facility] [address] [id number] [place] [address] 18 Aug, 2009 [facility] [address] [id number] [place] [address] 30 Mar, 2009 [facility] [address] [id number] [place] [address] 07 Mar, 2009 [facility] [place] [facility] [address] [id number] [place] [address] 17 Feb, 2009 [facility] [address] [id number] [place] [address], [place] [address]- [address] 10 Feb, 2009 [facility] [address] [id number] [place] [address] 10 Feb, 2009 [facility] [address] [facility] [id number] [place] [address] 10 Feb, 2009 [facility] [address] [id number] [place] [address]- [address] 06 Feb, 2009 [facility] [address] [facility] [id number] [place] [address] 27 Jan, 2009 [facility] [address] [facility] [id number], [place] [address] 26 Jan, 2009 [facility] [place] [facility] [address] [id number] [place] [address] 20 Jan, 2009 [facility] [place] [facility] [address] [id number], [place] [address] 19 Jan, 2009 [facility] [place] [facility] [address] [id number] [place] [address] 10 Nov, 2008 [facility] [place] [facility] [address] [id number] [place] [address] 16 Sep, 2008 [facility] [place] [facility] [address] [id number], [place] [address] August, [facility] [address] [facility] [id number] [place] [id number] Jul, [facility] [address] [facility] [id number] [place] [id number] May, IMMUNIZATIONS No Known Immunizations SOCIAL HISTORY Never Assessed REASON FOR VISIT Refill request PLAN OF CARE VITAL SIGNS MEDICATIONS Medication Instructions Dosage Frequency Start Date End Date Duration Status Gabapentin 600 MG TAKE 1 TABLET THREE TIMES DAILY (CHANGE IN DIRECTIONS) 90 Active Singulair 10 MG Orally Once a day take 1 tablet (10 mg) by oral route once daily in the evening 24h Oct, Active RESULTS No Results PROCEDURES No Known [...]
--- OUTSIDE RECORDS SUMMARY | 2017-07-16 08:22 | XMS REPORT ---
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 Name Role Phone FAAHD CLEMENT Unavailable PROBLEMS Type Condition ICD9-CM Code DJL69-GY Code Onset Dates Condition Status SNOMED Code Problem Barretts esophagus K22.70 Active 178225830 Problem Coronary artery disease involving [place] coronary artery of [place] 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 I25.118 Active 6200067490199 Problem Colon polyp K63.5 Active 56220864 Problem History of common bile duct surgery Z98.89 Active 162553602 Problem 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 Active 21491822 Problem Bilateral low back pain without sciatica M54.5 Active 638053021 Problem Screening breast examination Z12.39 Active 425362030 Problem Postmenopausal Z78.0 Active 05865329 Problem Osteopenia M85.80 Active 518183211 Problem Crohn''s disease without complication, unspecified gastrointestinal tract location K50.90 Active 48491435 Problem Cigarette nicotine dependence without complication F17.210 Active 37280164 Problem Type 2 diabetes mellitus with diabetic peripheral angiopathy without gangrene E11.51 Active 637861132 Problem Vascular dementia without behavioral disturbance F01.50 Active [id number] Problem Unspecified atherosclerosis of [place] arteries of extremities, unspecified extremity I70.209 Active 305566797856873 Problem Other chronic pancreatitis K86.1 Active 159901658 Problem Chronic atrial fibrillation I48.2 Active 368257126 Problem Diabetic polyneuropathy associated with type 2 diabetes mellitus E11.42 Active 24915212 Problem Controlled type 2 diabetes mellitus without complication, without long -term current use of insulin E11.9 Active 461012275 Problem Xeroderma Q80.9 Active 58353692 Problem Dementia without behavioral disturbance, unspecified dementia type F03.90 Active 29388124 Problem Gastroparesis K31.84 Active 483845305 Problem Arthritis M19.90 Active 9539215 Problem Osteoporosis M81.0 Active 50450431 Problem Atherosclerotic heart disease of [place]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 I25.118 Active 8958927840727 Problem Hyperlipidemia E78.5 Active 68118911 Problem Chronic obstructive pulmonary disease with acute lower respiratory infection J44.0 Active 081499311 Problem Essential tremor G25.0 Active 47263738 Problem Type 2 diabetes mellitus with diabetic neuropathy, without long-term current use of insulin E11.40 Active 48931332 Problem Atherosclerosis of [place] artery of both lower extremities with intermittent claudication I70.213 Active 736244274774232 Problem Paroxysmal atrial fibrillation I48.0 Active 606051711 Problem Migraine without aura and with status migrainosus, not intractable G43.001 Active 088648289 Problem Generalized anxiety disorder F41.1 Active 683962732 Problem Gastroesophageal reflux disease, esophagitis presence not specified K21.9 Active 839509059 Problem Major depressive disorder, recurrent episode, moderate F33.1 Active 712627960 Problem Unspecified psychosis F29 Active 90568155 Problem Chronic pain syndrome G89.4 Active 831774412 Problem Migraine without aura and without status migrainosus, not intractable G43.009 Active 623193657 Problem COPD (chronic obstructive pulmonary disease) J44.9 Active 07804765 Problem Bipolar affective disorder, currently depressed, moderate F31.32 Active 646148880 Problem Cervicalgia M54.2 Active 2620954456892 Problem Acute exacerbation of chronic obstructive pulmonary disease (COPD) J44.1 Active 625287688 Problem Postconcussion syndrome F07.81 Active 24910886 Problem Chronic fatigue R53.82 Active 84399991 ALLERGIES No Information ENCOUNTERS Encounter Location Date Diagnosis [facility] [address], [place] [address] Jul, [facility] [address], [place] [address] Jul, [facility] [address], [place] [address] Jun, Diabetic polyneuropathy associated with type 2 diabetes mellitus E11.42 [facility] [address], [place] [address] Jun, Diabetic polyneuropathy associated with type 2 diabetes mellitus E11.42 ; Coronary artery disease involving [place] coronary artery of [place] 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 I25.118 and Paroxysmal atrial fibrillation I48.0 [facility] [address] [place] [address] 01610- 5407 Jun, [facility] [id number] [place] [address] 22677- 9464 Jun, [facility] [id number] [place] [address] 36847- 3263 Jun, Gastroenteritis K52.9 [facility] [id number] [place] [address] 46890- 2122 Jun, Gastroenteritis K52.9 [facility] [id number] [place] [address] 08094- 1249 Jun, [facility] [id number] [place] [address] 35743- 0091 Jun, [facility] [address] [place] [address] 87668- 6487 Jun, Sprain of right ankle, unspecified ligament, initial encounter S93.401A ; Type 2 diabetes mellitus with diabetic neuropathy, without long-term current use of insulin E11.40 ; Atherosclerosis of [place] artery of both lower extremities with intermittent claudication I70.213 ; Atherosclerotic heart disease of [place]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 I25.118 ; Chronic atrial fibrillation I48.2 and Crohn''s disease without complication, unspecified gastrointestinal tract location K50.90 [facility] [address], [place] [address] 17 Jun, 2017 Chronic obstructive pulmonary disease with acute lower respiratory infection J44.0 and Cough R05 [facility] [address] [place] [address] 48918- 3321 16 Jun, 2017 [facility] [address] [place] [address] 84162- 8856 15 Jun, 2017 Coughing R05 ; Unspecified atherosclerosis of [place] arteries of extremities, unspecified extremity I70.209 ; Type 2 diabetes mellitus with diabetic peripheral angiopathy without gangrene E11.51 ; Crohn''s disease without complication, unspecified gastrointestinal tract location K50.90 ; Other chronic pancreatitis K86.1 and Chronic atrial fibrillation I48.2 [facility] [address], [place] [address] Jun, [facility] [id number] [place] [address] 53213- 4332 Jun, Bipolar affective disorder, currently depressed, moderate F31.32 ; Vascular dementia without behavioral disturbance F01.50 and Generalized anxiety disorder F41.1 [facility] [id number] [place] [address] 41184- 8929 May, Generalized anxiety disorder F41.1 [facility] [id number] [place] [address] 91061- 4157 May, [facility] [id number] [place] [address] 98059- 9561 May, [facility] [address] [place] [address] 09019- 1747 May, Coughing R05 [facility] [id number] [place] [address] 40265- 4076 May, [facility] [address] [place] [address] 84324- 3298 May, Bipolar affective disorder, currently depressed, moderate F31.32 ; Vascular dementia without behavioral disturbance F01.50 and Generalized anxiety disorder F41.1 [facility] [address] [place] [address] 67266- 1065 Apr, Generalized anxiety disorder F41.1 [facility] [id number] [place] [address] 30861- 7288 Apr, [facility] [id number] [place] [address] 45567- 8346 Apr, Vascular dementia without behavioral disturbance F01.50 ; Generalized anxiety disorder F41.1 and Bipolar affective disorder, currently depressed, moderate F31.32 [facility] [address] [address]- 0624 Apr, Generalized anxiety disorder F41.1 [facility] [id number] [place] [address] 83503 -1459 Apr, Cough R05 and Acute exacerbation of chronic obstructive pulmonary disease (COPD) J44.1 [facility] [address] 62992- 0296 Apr, [facility] [address] [address] Mar, Cough R05 and Cigarette nicotine dependence without complication F17.210 [facility] [facility] [address] 23796- 2814 Mar, [facility] [address] 01265- 1654 Feb, Generalized anxiety disorder F41.1 ; Major depressive disorder, recurrent episode, moderate F33.1 ; Vascular dementia without behavioral disturbance F01.50 and Unspecified psychosis F29 [facility] [id number] [place] [address] 83622- 9840 Feb, [facility] [id number] [place] [address] 98593- 4388 Feb, [facility] [address] 51606- 2170 Feb, Generalized anxiety disorder F41.1 [facility] [id number] [place] [address] 20368- 4252 Feb, Generalized anxiety disorder F41.1 [facility] [id number] [place] [address] 24694- 0589 Feb, Dizziness R42 ; Chronic fatigue R53.82 ; Postconcussion syndrome F07.81 ; Fall, initial encounter W19.XXXA and Disorientation R41.0 [facility] [id number] [place] [address] 82336- 9324 Feb, Postconcussion syndrome F07.81 ; Injury of head, initial encounter S09.90XA ; Fall, initial encounter W19.XXXA ; Disorientation R41.0 and Acute cystitis with hematuria N30.01 [facility] [address] 61372- 2982 Jan, Gastroesophageal reflux disease, esophagitis presence not specified K21.9 ; Post-menopausal Z78.0 and Migraine without aura and without status migrainosus, not intractable G43.009 [facility] [address] 17605- 5652 Jan, [facility] [address] 16436- 5968 Jan, Generalized anxiety disorder F41.1 ; Major depressive disorder, recurrent episode, moderate F33.1 ; Vascular dementia without behavioral disturbance F01.50 and Unspecified psychosis F29 [facility] [address] 96494- 0761 Jan, Pneumonia of left lower lobe due to infectious organism J18.1 [facility] [id number] [place] [address] 63161- 4832 Jan, Migraine without aura and with status migrainosus, not intractable G43.001 [facility] [id number] [place] [address] 80055 -9404 Jan, Migraine without aura and without status migrainosus, not intractable G43.009 [facility] [address] 34160- 4778 Dec, Hematoma T14.8 [facility] [address] 80456- 7658 Dec, [facility] [address] 01862 -[address]84 Nov, Fatigue, unspecified type R53.83 [facility] [address], [place] [address] Nov, Scabies B86 and Coronary artery disease involving [place] coronary artery of [place] 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 I25.118 [facility] [address], [place] [address] Nov, [facility] [id number] [place] [address] 32178- 3171 Nov, [facility] [id number] [place] [address] 09228- 0341 Oct, [facility] [id number] [place] [address] 88354- 5248 Oct, Generalized anxiety disorder F41.1 and Major depressive disorder, recurrent episode, moderate F33.1 [facility] [id number] [place] [address] 57729- 6695 Oct, Cramp of both lower extremities R25.2 [facility] [id number] [place] [address] 78925- 6316 Oct, Leg cramps R25.2 [facility] [id number] [place] [address] 52597- 5087 Oct, Chronic pain syndrome G89.4 [facility] [id number] [place] [address] 61121- 5365 Oct, [facility] [id number] [place] [address] 78399- 5231 Oct, [facility] [id number] [place] [address] 57312- 2920 Oct, Routine gynecological examination Z01.419 and Screening for breast cancer Z12.31 [facility] [address], [place] [address] 4247 Sep, Diarrhea R19.7 [facility] [id number] [place] [address] 74415- 0641 Sep, Back pain M54.9 [facility] [id number] [place] [address] 26763- 6647 Sep, [facility] [id number] [place] [address] 73410- 5973 Sep, [facility] [address] 82801 -7564 August, Xeroderma Q80.9 [facility] [id number] [place] [address] 62836- 5911 August, Dementia without behavioral disturbance, unspecified dementia type F03.90 [facility] [id number] [place] [address] 00016- 7175 August, Chronic pain syndrome G89.4 [facility] [address] 41654- 6627 August, [facility] [id number] [place] [address] 97067- 0810 August, Hyperlipidemia E78.5 ; Other fatigue R53.83 and Other specified hypotension I95.89 [facility] [id number] [place] [address] 39943 -1415 August, Dysuria R30.0 ; Other fatigue R53.83 and Other specified hypotension I95.89 [facility] [id number] [place] [address] 08092- 3622 August, [facility] [id number] [place] [address] 45413- 0931 Jul, Pain in left knee M25.562 and Gastroenteritis K52.9 [facility] [id number] [place] [address] 87810- 9808 Jul, [facility] [id number] [place] [address] 16555- 1871 Jul, Diarrhea R19.7 [facility] [id number] [place] [address] 09465 -7885 Jul, Spider bite, accidental or unintentional, initial encounter T63.301A [facility] [address] 78599- 5941 Jul, Primary osteoarthritis of right knee M17.11 and Arthritis M19.90 [facility] [address] 23172- 1383 Jul, Generalized anxiety disorder F41.1 and Major depressive disorder, recurrent episode, moderate F33.1 [facility] [address] 11518- 0249 07 Jul, 2016 Type 2 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 and Temporal headache R51 [facility] [address] 52258- 6128 Jul, Back pain M54.9 [facility] [address] 99956- 3324 Jul, [facility] [address] 75967- 6090 Jul, [facility] [address] 42865- 7655 30 Jun, 2016 Nausea R11.0 [facility] [address] 64015 -6881 Jun, Acute suppurative otitis media of both ears without spontaneous rupture of tympanic membranes, recurrence not specified H66.003 and COPD exacerbation J44.1 [facility] [address] 83598- 7079 Jun, Generalized anxiety disorder F41.1 [facility] [address] 83240- 3780 16 Jun, 2016 [facility] [address] 85260 -7798 Jun, [facility] [address] [place] [address] 53177 -4104 13 Jun, 2016 Shortness of breath R06.02 and COPD exacerbation J44.1 [facility] [id number] [place] [address] 03385- 7886 10 Jun, 2016 Eczema, unspecified type L30.9 [facility] [id number] [place] [address] 23084- 7595 09 Jun, 2016 [facility] [id number] [place] [address] 83431- 1860 May, [facility] [address] 20492- 9115 May, Muscle cramping R25.2 [facility] [facility] [address] 73203- 6908 May, [facility] [id number] [place] [address] 47740- 6971 Apr, Diarrhea R19.7 [facility] [address] 91238- 6039 Apr, [facility] [id number] [place] [address] 31555- 9887 Apr, Chronic pain syndrome G89.4 [facility] [id number] [place] [address] 11598- 7674 Apr, Cramp of both lower extremities R25.2 and Vascular dementia without behavioral disturbance F01.50 [facility] [id number] [place] [address] 89753- 1355 03 Apr, 2016 Type 2 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 and Cigarette nicotine dependence without complication F17.210 [facility] [id number] [place] [address] 05087- 4138 Mar, Generalized anxiety disorder F41.1 [facility] [id number] [place] [address] 93575- 0586 Feb, Generalized anxiety disorder F41.1 and Major depressive disorder, recurrent episode, moderate F33.1 [facility] [id number] [place] [address] 99097- 9121 Feb, [facility] [id number] [place] [address] 78640 -0882 Feb, Dysuria R30.0 and Acute cystitis with hematuria N30.01 [facility] [id number] [place] [address] 93243- 5935 Jan, [facility] [id number] [place] [address] 62873- 3177 Jan, [facility] [id number] [place] [address] 48122- 2654 Jan, [facility] [id number] [place] [address] 47684- 4296 Jan, [facility] [id number] [place] [address] 15631 -3879 Jan, Wasp sting, accidental or unintentional, initial encounter T63.461A [facility] [id number] [place] [address] 94007- 5461 06 Jan, 2016 Encounter for immunization Z23 [facility] [id number] [place] [address] 72293- 3056 Jan, [facility] [id number] [place] [address] 60257- 4606 Jan, [facility] [address] [place] [address] 96431- 6879 Dec, Generalized anxiety disorder F41.1 and Major depressive disorder, recurrent episode, moderate F33.1 [facility] [address] [place] [address] 72644- 4323 Dec, Routine gynecological examination Z01.419 ; Postmenopausal Z78.0 ; Screening breast examination Z12.39 ; Osteopenia M85.80 and Breast cancer screening Z12.39 [facility] [address], [place] [address]- 6399 20 Dec, 2015 [facility] [address], [place] [address]- 5771 19 Dec, 2015 [facility] [address], [place] [address]- 4495 16 Dec, 2015 [facility] [address], [place] [address]- 6804 16 Dec, 2015 [facility] [address], [place] [address]- 4087 14 Dec, 2015 [facility] [address], [place] [address]- 5381 Dec, [facility] [address], [place] [address]- 5451 Nov, [facility] [address], [place] [address] Nov, Cough R05 ; Other viral agents as the cause of diseases classified elsewhere B97.89 and Acute upper respiratory infection, unspecified J06.9 [facility] [address], [place] [address]- 0474 Nov, [facility] [address], [place] [address]- 9847 Nov, [facility] [address], [place] [address]- 0353 Nov, [facility] [address], [place] [address]- 2714 Nov, [facility] [address], [place] [address]- 7995 Nov, [facility] [address], [place] [address]- 0366 Oct, [facility] [id number] [place] [address] 46708- 7969 18 Oct, 2015 [facility] [id number] [place] [address] 98209- 3579 14 Oct, 2015 [facility] [id number] [place] [address] 78910- 2776 Oct, Chronic pain syndrome G89.4 [facility] [address] 25692- 6893 29 Sep, 2015 Generalized anxiety disorder F41.1 and Major depressive disorder, recurrent episode, moderate F33.1 [facility] [id number] [place] [address] 86691- 6588 Sep, [facility] [id number] [place] [address] 42833- 1695 Sep, [facility] [id number] [place] [address] 14165- 5287 Sep, Generalized anxiety disorder F41.1 [facility] [id number] [place] [address] 85651- 1053 13 Sep, 2015 Cramp of both lower extremities R25.2 and Cervicalgia M54.2 [facility] [id number] [place] [address] 20566- 6460 06 Sep, 2015 Generalized anxiety disorder F41.1 [facility] [id number] [place] [address] 07383- 9175 Sep, [facility] [id number] [place] [address] 98552 -1929 August, Rash R21 ; Itching L29.9 and Allergic response, subsequent encounter T78.40XD [facility] [id number] [place] [address] 22882- 0106 August, Primary insomnia F51.01 [facility] [id number] [place] [address] 27303 -3773 August, Rash R21 ; Itching L29.9 and Allergic response, initial encounter T78.40XA [facility] [id number] [place] [address] 74312- 5313 August, [facility] [id number] [place] [address] 01929- 8042 August, Cramp of both lower extremities R25.2 [facility] [id number] [place] [address] 80426- 4213 August, Back pain M54.9 [facility] [id number] [place] [address] 21696- 4681 August, [facility] [id number] [place] [address] 91501- 2142 August, [facility] [id number] [place] [address] 17170 -0198 August, Cramp of both lower extremities R25.2 [facility] [id number] [place] [address] 85904- 1407 August, [facility] [id number] [place] [address] 70973- 9279 August, Syncope R55 ; Paroxysmal atrial fibrillation I48.0 ; Dementia without behavioral disturbance, unspecified dementia type F03.90 and Chronic pain syndrome G89.4 [facility] [address] [place] [address] 36821- 6756 August, Type 2 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 and Syncope R55 [facility] [id number] [place] [address] 23494- 8072 Jul, [facility] [id number] [place] [place] [address] 81391- 1897 Jul, [facility] [id number] [place] [address] 55333- 0457 Jul, [facility] [id number] [place] [address] 82073- 8242 Jul, [facility] [address] [address] 4981 Jul, [facility] [id number] [place] [address] 54658- 5487 19 Jul, 2015 UTI (urinary tract infection) N39.0 [facility] [id number] [place] [address] 61075- 1114 18 Jul, 2015 [facility] [id number] [place] [address] 94622- 6496 18 Jul, 2015 Major depressive disorder, recurrent episode, moderate F33.1 and Generalized anxiety disorder F41.1 [facility] [id number] [place] [address] 09227- 0307 Jul, Generalized anxiety disorder F41.1 [facility] [id number] [place] [address] 26945- 6665 Jul, Diarrhea R19.7 [facility] [id number] [place] [address] 38359- 0096 Jul, [facility] [id number] [place] [address] 25314- 5070 Jun, [facility] [address], [place] [address] 2590 Jun, Eczema L30.9 [facility] [address], [place] [address] 3832 Jun, [facility] [address], [place] [address] 6050 17 Jun, 2015 COPD (chronic obstructive pulmonary disease) J44.9 [facility] [address], [place] [address]- 2887 16 Jun, 2015 [facility] [address], [place] [address] 0818 02 Jun, 2015 Major depressive disorder, recurrent episode, moderate F33.1 and Generalized anxiety disorder F41.1 [facility] [address], [place] [address] 1872 May, [facility] [address], [place] [address] 2141 May, UTI (urinary tract infection) N39.0 [facility] [address], [place] [address] 3906 May, [facility] [address], [place] [address] 6603 May, [facility] [id number] [place] [address] 33835- 2092 May, [facility] [id number] [place] [address] 80789- 5702 May, [facility] [id number] [place] [address] 77832- 1791 Apr, Major depressive disorder, recurrent episode, moderate F33.1 and Generalized anxiety disorder F41.1 [facility] [address], [place] [address] 7677 Apr, COPD (chronic obstructive pulmonary disease) J44.9 [facility] [address], [place] [address]- 5945 Apr, [facility] [address], [place] [address] 7316 Apr, Atrial flutter I48.92 [facility] [address], [place] [address]- 5237 Apr, [facility] [address], [place] [address]- 3396 Apr, [facility] [address], [place] [address]- 0983 Mar, [facility] [address], [place] [address] 1961 Mar, [facility] [id number] [place] [address] 44098- 7644 Mar, [facility] [id number] [place] [address] 78003- 2457 Mar, Hyperlipidemia E78.5 ; Type 2 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 ; Major depressive disorder, recurrent episode, moderate F33.1 and Chronic pain syndrome G89.4 [facility] [id number] [place] [address] 86248- 8947 Mar, [facility] [id number] [place] [address] 84402- 8537 Mar, [facility] [id number] [place] [address] 49396- 1330 Mar, [facility] [id number] [place] [address] 41945- 7573 Mar, [facility] [id number] [place] [address] 50068- 3606 Feb, COPD (chronic obstructive pulmonary disease) J44.9 and Back pain M54.9 [facility] [id number] [place] [address] 48432- 4245 Feb, [facility] [id number] [place] [address] 83644- 5348 Feb, [facility] [id number] [place] [address] 49315- 8034 Feb, [facility] [id number] [place] [address] 71367- 2779 Feb, [facility] [id number] [place] [address] 78892- 3324 Feb, [facility] [id number] [place] [address] 08225- 5326 Feb, [facility] [id number] [place] [address] 86121- 9563 Feb, [facility] [id number] [place] [address] 91541- 3761 Feb, [facility] [id number] [place] [address] 63874- 0997 Feb, Diabetes E11.9 ; Back pain M54.9 and COPD (chronic obstructive pulmonary disease) J44.9 [facility] [id number] [place] [address] 20005- 8565 Jan, [facility] [id number] [place] [address] 30816- 0272 Jan, Major depression, recurrent F33.9 and Generalized anxiety disorder F41.1 [facility] [id number] [place] [address] 18859- 2079 Jan, Chronic pain G89.29 [facility] [id number] [place] [address] 33519- 1510 Jan, [facility] [id number] [place] [address] 22851- 7252 Jan, [facility] [id number] [place] [address] 57884- 3258 Jan, [facility] [id number] [place] [address] 01901- 6408 Jan, [facility] [id number] [place] [address] 95982- 5073 Jan, Nicotine dependence F17.200 [facility] [id number] [place] [address] 78839- 2409 Jan, Nicotine dependence F17.200 and Back pain M54.9 [facility] [id number] [place] [address] 98778- 4402 Jan, [facility] [id number] [place] [address] 60632- 1557 Dec, [facility] [address], [place] [address]- 2197 25 Dec, 2014 Anxiety, generalized 300.02 and Major depression, recurrent 296.30 [facility] [id number] [place] [address] 41774- 7325 24 Dec, 2014 [facility] [address], [place] [address]- 5861 21 Dec, 2014 [facility] [id number] [place] [address] 67235- 8319 17 Dec, 2014 [facility] [id number] [place] [address] 29822- 0922 15 Dec, 2014 [facility] [id number] [place] [address] 01551- 6494 14 Dec, 2014 [facility] [id number] [place] [address] 81074- 1692 11 Dec, 2014 [facility] [id number] [place] [address] 85220- 8765 10 Dec, 2014 [facility] [id number] [place] [address] 10569- 0319 08 Dec, 2014 Skin tear 879.8 [facility] [address], [place] [address]- 1090 08 Dec, 2014 Routine gynecological examination V72.31 ; Breast cancer screening V76.10 and Family history of breast cancer in first degree relative V16.3 [facility] [address], [place] [address]- 0656 03 Dec, 2014 [facility] [address], [place] [address]- 4223 Dec, [facility] [address], [place] [address]- 4384 Nov, [facility] [address], [place] [address]- 7645 Nov, [facility] [id number] [place] [address]- 7333 Nov, Poor balance 781.99 and Vascular dementia, uncomplicated 290.40 [facility] [id number] [place] [address] 28877- 5271 Nov, [facility] [id number] [place] [address] 41049- 3719 Nov, Major depression, recurrent 296.30 and Anxiety, generalized 300.02 [facility] [id number] [place] [address] 26506- 9349 Nov, [facility] [id number] [place] [address] 02157- 7679 Nov, [facility] [id number] [place] [address] 36859- 7052 Nov, [facility] [id number] [place] [address] 06618- 4828 Nov, [facility] [id number] [place] [address] 51515- 0471 Nov, Vascular dementia, uncomplicated 290.40 and Lumbago 724.2 [facility] [id number] [place] [address] 10401- 6876 Nov, [facility] [id number] [place] [address] 41755- 0254 Nov, [facility] [id number] [place] [address] 87877- 4671 Nov, [facility] [id number] [place] [address] 98498- 6775 Oct, [facility] [id number] [place] [address] 23557- 4234 Oct, [facility] [id number] [place] [address] 97974- 7304 Oct, [facility] [id number] [place] [address] 09877- 6311 Oct, COPD (chronic obstructive pulmonary disease) 496 and Hyperlipidemia 272.4 [facility] [id number] [place] [address] 37006- 8586 Oct, Major depression, recurrent 296.30 and Anxiety, generalized 300.02 [facility] [id number] [place] [address] 12823- 0639 Oct, [facility] [id number] [place] [address] 09228- 2012 Oct, [facility] [id number] [place] [address] 91120- 5427 Oct, [facility] [id number] [place] [address] 89598- 4585 Sep, Lumbago 724.2 and Anxiety state, unspecified 300.00 [facility] [id number] [place] [address] 93191- 7711 Sep, [facility] [id number] [place] [address] 60208- 8768 Sep, [facility] [id number] [place] [address] 57463- 1877 August, [facility] [id number] [place] [address] 54035- 8264 August, Major depression, recurrent 296.30 ; Anxiety, generalized 300.02 and No condition on [place] II V71.09 [facility] [address], [place] [address]- 5959 August, [facility] [id number] [place] [address] 01395- 1719 August, [facility] [id number] [place] [address] 17191- 3780 Jul, [facility] [id number] [place] [address] 88580- 0921 Jul, [facility] [place] [facility] [address] [id number] [place] [address] 2546 13 Jul, 2014 [facility] [place] [facility] [address] [id number] [place] [address]- 9946 30 Jun, 2014 [facility] [place] [facility] [address] [id number] [place] [address]- 8306 30 Jun, 2014 [facility] [place] [facility] [address] [id number] [place] [address]- 3596 27 Jun, 2014 [facility] [place] [facility] [address] [id number] [place] [address]- 2127 27 Jun, 2014 [facility] [place] [facility] [address] [id number] [place] [address]- 6736 26 Jun, 2014 [facility] [place] [facility] [address] [id number] [place] [address]- 4881 Jun, [facility] [place] [facility] [address] [id number] [place] [address]- 9833 23 Jun, 2014 [facility] [place] [facility] [address] [id number] [place] [address]- 1293 17 Jun, 2014 [facility] [place] [facility] [address] [id number] [place] [address]- 2786 13 Jun, 2014 [facility] [place] [facility] [address] [id number] [place] [address]- 7644 13 Jun, 2014 [facility] [place] [facility] [address] [id number] [place] [address]- 5049 10 Jun, 2014 [facility] [place] [facility] [address] [id number] [place] [address]- 1550 10 Jun, 2014 [facility] [place] [facility] [address] [id number] [place] [address]- 8576 07 Jun, 2014 [facility] [place] [facility] [address] [id number] [place] [address]- 2546 07 Jun, 2014 [facility] [place] [facility] [address] [id number] [place] [address]- 6446 Jun, 2014 [facility] [place] [facility] [address] [facility] [id number] [place] [address]- 0084 Jun, [facility] [place] [facility] [address] [facility] [id number] [place] [address]- 4276 May, 2014 [facility] [place] [facility] [address] [facility] [id number] [place] [address]- 0437 May, 2014 [facility] [place] [facility] [address] [facility] [id number] [place] [address]- 6997 May, 2014 [facility] [place] [facility] [address] [facility] [id number] [place] [address]- 3111 May, 2014 [facility] [place] [facility] [address] [facility] [id number] [place] [address]- 4516 May, 2014 [facility] [place] [facility] [id number] [address]- 9171 May, 2014 [facility] [place] [facility] [address] [facility] [id number] [place] [address]- 7614 May, 2014 [facility] [place] [facility] [address] [facility] [id number] [place] [address]- 4182 May, 2014 [facility] [place] [facility] [address] [facility] [id number] [place] [address]- 8110 May, 2014 [facility] [place] [facility] [address] [facility] [id number] [place] [address]- 7538 May, 2014 [facility] [place] [facility] [address] [facility] [id number], [place] [address]- 2549 May, 2014 [facility] [place] [facility] [address] [facility] [id number] [place] [address]- 1435 May, 2014 [facility] [place] [facility] [address] [facility] [id number], [place] [address]- 1409 May, 2014 [facility] [place] [facility] [address] [facility] [id number] [place] [address]- 6115 May, [facility] [place] [facility] [address] [id number] [place] [address]- 6109 Apr, [facility] [place] [facility] [address] [id number] [place] [address]- 9734 Apr, [facility] [place] [facility] [address] [id number] [place] [address]- 4003 Apr, [facility] [place] [facility] [address] [id number] [place] [address]- 8507 Apr, [facility] [place] [facility] [address] [id number] [place] [address]- 1967 Apr, [facility] [place] [facility] [address] [id number] [place] [address]- 8468 Apr, [facility] [place] [facility] [address] [id number] [place] [address]- 6220 Apr, [facility] [place] [facility] [address] [id number] [place] [address]- 8435 Apr, [facility] [place] [facility] [address] [id number] [place] [address]- 4703 Apr, [facility] [place] [facility] [address] [id number] [place] [address]- 4900 Apr, [facility] [place] [facility] [address] [id number] [place] [address]- 2303 Apr, [facility] [place] [facility] [address] [id number], [place] [address]- 8862 Apr, [facility] [place] [facility] [address] [id number] [place] [address]- 0861 Mar, [facility] [place] [facility] [address] [id number] [place] [address]- 6366 Mar, [facility] [place] [facility] [address] [id number] [place] [address]- 0583 Mar, [facility] [place] [facility] [address] [id number] [place] [address]- 2721 30 Mar, 2014 [facility] [place] [facility] [address] [id number] [place] [address]- 0146 29 Mar, 2014 [facility] [place] [facility] [address] [id number] [place] 1976 29 Mar, 2014 [facility] [place] [facility] [address] [id number] [place] [address]- 4036 Mar, [facility] [place] [facility] [address] [id number] [place] [address]- 0556 Mar, [facility] [place] [facility] [address] [id number] [place] [address]- 3449 15 Mar, 2014 [facility] [place] [facility] [address] [id number] [place] [address]- 3334 15 Mar, 2014 [facility] [place] [facility] [address] [id number] [place] [address]- 5757 15 Mar, 2014 [facility] [place] [facility] [address] [id number] [place] [address]- 6982 15 Mar, 2014 [facility] [place] [facility] [address] [id number] [place] [address]- 0893 Mar, [facility] [place] [facility] [address] [id number] [place] [address]- 7218 15 Mar, 2014 [facility] [place] [facility] [address] [id number] [place] [address]- 2155 08 Mar, 2014 [facility] [place] [facility] [address] [id number] [place] [address]- 1777 Mar, [facility] [place] [facility] [address] [id number] [place] [address]- 7043 Mar, [facility] [place] [facility] [address] [id number] [place] [address]- 3227 Mar, [facility] [place] [facility] [address] [id number] [place] [address]- 5131 Mar, [facility] [place] [facility] [address] [id number] [place] [address]- 4719 Mar, [facility] [place] [facility] [address] [id number] [place] [address]- 5559 Feb, [facility] [place] [facility] [address] [id number] [place] [address]- 1435 Feb, [facility] [place] [facility] [address] [id number] [place] [address]- 7525 Feb, [facility] [place] [facility] [address] [id number] [place] [address]- 0175 Feb, [facility] [place] [facility] [address] [id number] [place] [address]- 8165 Feb, [facility] [place] [facility] [address] [id number] [place] [address]- 1927 Feb, [facility] [place] [facility] [address] [id number] [place] [address]- 7585 Feb, [facility] [place] [facility] [address] [id number] [place] [address]- 0448 Feb, [facility] [place] [facility] [address] [id number] [place] [address]- 0155 Feb, [facility] [place] [facility] [address] [id number] [place] [address]- 3168 Feb, [facility] [place] [facility] [address] [id number] [place] [address]- 9755 Feb, [facility] [place] [facility] [address] [id number] [place] [address]- 2764 Feb, [facility] [place] [facility] [address] [id number] [place] [address]- 1747 Feb, [facility] [place] [facility] [address] [id number] [place] [address]- 9825 Feb, [facility] [place] [facility] [address] [id number] [place] [address]- 5083 Feb, [facility] [place] [facility] [address] [id number] [place] [address]- 6457 Feb, [facility] [place] [facility] [address] [id number] [place] [address]- 6346 Feb, [facility] [place] [facility] [address] [id number] [place] [address]- 3420 Jan, [facility] [place] [facility] [address] [id number] [place] [address]- 0410 Jan, [facility] [place] [facility] [address] [id number] [place] [address]- 6850 Jan, [facility] [place] [facility] [address] [id number] [place] [address] Jan, [facility] [place] [facility] [address] [id number] [place] [address] Jan, [facility] [place] [facility] [address] [id number] [place] [address] Jan, [facility] [place] [facility] [address] [id number] [place] [address] Jan, [facility] [place] [facility] [address] [id number] [place] [address] Jan, [facility] [place] [facility] [address] [id number] [place] [address] Jan, [facility] [place] [facility] [address] [id number], [place] [address] Jan, [facility] [place] [facility] [address] [id number] [place] [address] Jan, [facility] [place] [facility] [address] [id number] [place] [address] Dec, [facility] [place] [facility] [address] [id number] [place] [address] Dec, [facility] [place] [facility] [address] [id number] [place] [address] Nov, [facility] [place] [facility] [address] [id number] [place] [address] Nov, [facility] [place] [facility] [address] [id number] [place] [address] Nov, [facility] [place] [facility] [address] [id number] [place] [address] Nov, [facility] [place] [facility] [address] [id number] [place] [address]- [address] Nov, [facility] [place] [facility] [address] [id number] [place] [address]- [address] Nov, [facility] [place] [facility] [address] [id number] [place] [address] Nov, [facility] [place] [facility] [address] [id number] [place] [address] Oct, [facility] [place] [facility] [address] [id number] [place] [address]- [address] Oct, [facility] [place] [facility] [address] [id number] [place] [address] Oct, [facility] [place] [facility] [address] [id number] [place] [address]- [address] Oct, [facility] [place] [facility] [address] [id number] [place] [address] Sep, [facility] [place] [facility] [address] [id number] [place] [address] 1698 Sep, [facility] [place] [facility] [address] [id number] [place] [address]- [address] Sep, [facility] [place] [facility] [address] [id number] [place] [address]- [address] Sep, [facility] [place] [facility] [address] [id number] [place] [address] Sep, [facility] [place] [facility] [address] [id number] [place] [address] Sep, [facility] [place] [facility] [address] [id number] [place] [address] Sep, [facility] [place] [facility] [address] [id number] [place] [address] Sep, [facility] [place] [facility] [address] [id number] [place] [address] Sep, [facility] [place] [facility] [address] [id number] [place] [address]- [address] Sep, [facility] [place] [facility] [address] [id number] [place] [address] Sep, [facility] [place] [facility] [address] [id number] [place] [address] Sep, [facility] [place] [facility] [address] [id number] [place] [address] Sep, [facility] [place] [facility] [address] [id number] [place] [address] Sep, [facility] [place] [facility] [address] [id number] [place] [address] August, [facility] [place] [facility] [address] [id number] [place] [address] August, [facility] [place] [facility] [address] [id number] [place] [address]- [address] August, [facility] [place] [facility] [address] [id number] [place] [address]- [address] August, [facility] [place] [facility] [address] [id number] [place] [address] August, [facility] [place] [facility] [address] [id number] [place] [address] August, [facility] [place] [facility] [address] [id number] [place] [address]- [address] August, [facility] [place] [facility] [address] [id number] [place] [address] August, [facility] [place] [facility] [address] [id number] [place] [address]- 35[address] August, [facility] [place] [facility] [address] [id number] [place] [address] August, [facility] [place] [facility] [address] [id number] [place] [address]- [address]47 August, [facility] [place] [facility] [address] [id number] [place] [address]- [address] August, [facility] [place] [facility] [address] [id number] [place] [address]- 2896 August, [facility] [place] [facility] [address] [id number] [place] [address]- 47[address] August, [facility] [place] [facility] [address] [id number] [place] [address]- [address] August, [facility] [place] [facility] [address] [id number] [place] [address]- 37[address] August, [facility] [place] [facility] [address] [id number] [place] [address]- 86[address] August, [facility] [place] [facility] [address] [id number] [place] [address] August, [facility] [place] [facility] [address] [id number] [place] [address] August, [facility] [place] [facility] [address] [id number] [place] [address]- [address] Jul, [facility] [place] [facility] [address] [id number] [place] [address] Jul, [facility] [place] [facility] [address] [id number] [place] [address] 89[address] Jul, [facility] [place] [facility] [address] [id number] [place] [address] 4[address] 08 Jul, 2013 [facility] [place] [facility] [address] [id number] [place] [address] 8492 27 Jun, 2013 [facility] [place] [facility] [address] [id number] [place] [address] 6899 27 Jun, 2013 [facility] [place] [facility] [address] [id number] [place] [address]- 3945 24 Jun, 2013 [facility] [place] [facility] [address] [id number] [place] [address]- 1127 24 Jun, 2013 [facility] [place] [facility] [address] [id number] [place] [address] 8859 17 Jun, 2013 [facility] [place] [facility] [address] [id number] [place] [address]- 5977 17 Jun, 2013 [facility] [place] [facility] [address] [id number] [place] [address]- 4098 14 Jun, 2013 [facility] [place] [facility] [address] [id number] [place] [address]- 8064 14 Jun, 2013 [facility] [place] [facility] [address] [id number] [place] [address] 9800 Jun, [facility] [place] [facility] [address] [id number] [place] [address] 1647 Jun, [facility] [place] [facility] [address] [id number] [place] [address] 2524 May, [facility] [place] [facility] [address] [id number] [place] [address]- 6618 May, [facility] [place] [facility] [address] [id number] [place] [address]- 9818 May, [facility] [place] [facility] [address] [id number] [place] [address]- 7500 May, [facility] [place] [facility] [address] [id number] [place] [address]- 0388 May, [facility] [place] [facility] [address] [id number] [place] [address]- 8134 May, [facility] [place] [facility] [address] [id number] [place] [address]- 5276 20 May, 2013 [facility] [place] [facility] [address] [facility] [id number] [place] [address]- 5636 May, [facility] [place] [facility] [address] [id number] [place] [address]- 0779 May, [facility] [place] [facility] [address] [id number] [place] [address]- 6701 May, [facility] [place] [facility] [address] [facility] [id number] [place] [address]- 4282 May, [facility] [place] [facility] [address] [facility] [id number] [place] [address]- 5566 17 May, 2013 [facility] [place] [facility] [address] [facility] [id number] [place] [address]- 8877 May, [facility] [place] [facility] [address] [facility] [id number] [place] [address]- 7516 May, [facility] [place] [facility] [address] [facility] [id number] [place] [address]- 0303 10 May, 2013 [facility] [place] [facility] [address] [facility] [id number] [place] [address]- 6121 07 May, 2013 [facility] [place] [facility] [address] [facility] [id number] [place] [address]- 6736 07 May, 2013 [facility] [place] [facility] [address] [facility] [id number] [place] [address]- 4181 Apr, [facility] [place] [facility] [address] [facility] [id number], [place] [address]- 1576 15 Apr, 2013 [facility] [place] [facility] [address] [facility] [id number], [place] [address]- 3646 15 Apr, 2013 [facility] [place] [facility] [address] [id number] [place] [address]- 8207 Apr, [facility] [address] [id number] [place] [address]- 6999 Apr, [facility] [place] [facility] [address] [id number] [place] [address]- 3520 Apr, [facility] [address] [id number] [place] [address]- 9786 Apr, [facility] [address] [id number] [place] [address]- 8579 Mar, [facility] [place] [facility] [address] [id number] [place] [address]- 3339 Mar, [facility] [address] [id number] [place] [address]- 2343 Mar, [facility] [address] [id number] [place] [address]- 8754 Mar, [facility] [address] [id number] [place] [address]- 5612 Mar, [facility] [place] [facility] [address] [id number] [place] [address]- 6494 Mar, [facility] [place] [facility] [address] [id number] [place] [address]- 8759 Mar, [facility] [place] [facility] [address] [id number] [place] [address]- 5591 Mar, [facility] [place] [facility] [address] [id number] [place] [address]- 6881 Mar, [facility] [place] [facility] [address] [id number] [place] [address]- 4381 Mar, [facility] [place] [facility] [address] [id number] [place] [address]- 4822 Mar, [facility] [place] [facility] [address] [id number], [place] [address]- 6880 Feb, [facility] [place] [facility] [address] [id number] [place] [address]- 2364 Feb, [facility] [place] [facility] [address] [id number] [place] [address]- 0293 Feb, [facility] [place] [facility] [address] [id number] [place] [address]- 9678 20 Feb, 2013 [facility] [place] [facility] [address] [id number], [place] [address]- 0180 Feb, [facility] [place] [facility] [address] [id number] [place] [address]- 7850 19 Feb, 2013 [facility] [place] [facility] [address] [id number], [place] [address] 4757 15 Feb, 2013 [facility] [place] [facility] [address] [id number], [place] [address]- 2017 14 Feb, 2013 [facility] [place] [facility] [address] [id number], [place] [address]- 3204 14 Feb, 2013 [facility] [place] [facility] [address] [id number], [place] [address]- 9261 Feb, [facility] [place] [facility] [address] [id number], [place] [address]- 6397 Feb, [facility] [place] [facility] [address] [id number], [place] [address]- 2948 12 Feb, 2013 [facility] [place] [facility] [address] [id number], [place] [address]- 0778 12 Feb, 2013 [facility] [place] [facility] [address] [id number], [place] [address]- 7451 Feb, [facility] [place] [facility] [address] [id number], [place] [address]- 2639 05 Feb, 2013 [facility] [place] [facility] [address] [id number], [place] [address]- 6223 05 Feb, 2013 [facility] [place] [facility] [address] [id number] [place] [address]- 4913 Jan, [facility] [address] [id number] [place] [address]- 9321 Jan, [facility] [place] [facility] [address] [id number] [place] [address]- 3075 Jan, [facility] [address] [id number] [place] [address]- 9512 Jan, [facility] [place] [facility] [address] [id number] [place] [address]- 8097 Jan, [facility] [address] [id number] [place] [address]- 5884 Jan, [facility] [place] [facility] [address] [id number] [place] [address]- 9022 Jan, [facility] [place] [facility] [address] [id number] [place] [address]- 2643 Jan, [facility] [place] [facility] [address] [id number] [place] [address]- 9745 10 Jan, 2013 [facility] [place] [facility] [address] [id number] [place] [address]- 2056 27 Dec, 2012 [facility] [place] [facility] [address] [id number] [place] [address]- 3226 20 Dec, 2012 [facility] [place] [facility] [address] [id number] [place] [address] 2549 19 Dec, 2012 [facility] [place] [facility] [address] [id number] [place] [address]- 2545 10 Dec, 2012 [facility] [place] [facility] [address] [id number] [place] [address] 2549 04 Dec, 2012 [facility] [place] [facility] [address] [id number] [place] [address]- 2543 03 Dec, 2012 [facility] [place] [facility] [address] [id number] [place] [address]- 6124 Nov, [facility] [place] [facility] [address] [id number] [place] [address]- 8335 Nov, [facility] [place] [facility] [address] [id number] [place] [address]- 0172 Nov, [facility] [place] [facility] [address] [id number] [place] [address]- 3022 Nov, [facility] [place] [facility] [address] [id number] [place] [address]- 0170 Nov, [facility] [place] [facility] [address] [id number] [place] [address]- 5841 Nov, [facility] [place] [facility] [address] [id number] [place] [address]- 8279 Nov, [facility] [place] [facility] [address] [id number] [place] [address]- 8562 Nov, [facility] [place] [facility] [address] [id number] [place] [address]- 5461 Nov, [facility] [place] [facility] [address] [id number] [place] [address]- 1789 Nov, [facility] [place] [facility] [address] [id number] [place] [address]- 7439 Oct, [facility] [place] [facility] [address] [id number] [place] [address]- 4428 Oct, [facility] [place] [facility] [address] [id number] [place] [address]- 8887 Oct, [facility] [place] [facility] [address] [id number] [place] [address]- 2501 Oct, [facility] [place] [facility] [address] [id number] [place] [address]- 8251 Oct, [facility] [place] [facility] [address] [id number] [place] [address]- 5418 Oct, [facility] [place] [facility] [address] [id number] [place] [address]- 0193 Oct, [facility] [address] [id number] [place] [address]- 7895 Oct, [facility] [place] [facility] [address] [id number] [place] [address]- 3364 Sep, [facility] [address] [id number] [place] [address]- 8561 Sep, [facility] [place] [facility] [address] [id number] [place] [address]- 5549 Sep, [facility] [address] [id number] [place] [address]- 3454 Sep, [facility] [address] [id number] [place] [address]- 3849 Sep, [facility] [address] [id number] [place] [address]- 2637 Sep, [facility] [place] [facility] [address] [id number] [place] [address]- 8691 Sep, [facility] [address] [id number] [place] [address]- 3466 Sep, [facility] [place] [facility] [address] [id number] [place] [address]- 6647 August, [facility] [address] [id number] [place] [address]- 4319 August, [facility] [place] [facility] [address] [id number] [place] [address]- 1222 August, [facility] [place] [facility] [address] [id number] [place] [address]- 4426 August, [facility] [place] [facility] [address] [id number] [place] [address]- 0709 August, [facility] [place] [facility] [address] [id number] [place] [address]- 3257 Jul, [facility] [place] [facility] [address] [id number] [place] [address]- 7026 Jul, [facility] [address] [id number] [place] [address]- 8377 Jul, [facility] [place] [facility] [address] [id number] [place] [address]- 1256 Jul, [facility] [address] [id number] [place] [address]- 0600 Jul, [facility] [address] [id number] [place] [address]- 4258 Jun, [facility] [address] [id number] [place] [address]- 6077 18 Jun, 2012 [facility] [address] [id number] [place] [address]- 4551 15 Jun, 2012 [facility] [address] [id number] [place] [address]- 8713 14 Jun, 2012 [facility] [address] [id number] [place] [address]- 8024 Jun, [facility] [address] [id number] [place] [address]- 9268 Jun, [facility] [address] [id number] [place] [address]- 3122 Jun, [facility] [place] [facility] [address] [id number] [place] [address]- 6228 Jun, [facility] [place] [facility] [address] [id number] [place] [address]- 3675 Jun, [facility] [place] [facility] [address] [id number] [place] [address]- 6609 May, [facility] [place] [facility] [address] [id number] [place] [address]- 5856 May, [facility] [place] [facility] [address] [id number] [place] [address]- 3972 May, [facility] [address] [id number] [place] [address]- 7156 May, [facility] [address] [id number], [place] [address]- 0700 Apr, [facility] [address] [facility] [id number], [place] [address]- 4784 Apr, [facility] [address] [id number], [place] [address]- 1036 Apr, [facility] [address] [id number] [place] [address]- 6751 Apr, [facility] [address] [facility] [id number], [place] [address]- 0238 Apr, [facility] [address] [id number], [place] [address]- 3798 Apr, [facility] [address] [id number], [place] [address]- 5235 Apr, [facility] [address] [facility] [id number], [place] [address]- [address] Mar, [facility] [address] [place] [id number] Mar, [facility] [address] [id number], [place] [address]- 2188 Mar, [facility] [address] [id number], [place] [address]- 9831 Mar, [facility] [address] [id number], [place] [address]- 0067 Mar, [facility] [address] [id number], [place] [address]- 5841 Mar, [facility] [address] [facility] [id number], [place] [address]- 9653 Mar, [facility] [address] [id number], [place] [address]- 3475 Mar, [facility] [place] [facility] [address] [id number] [place] [address]- 5403 Mar, [facility] [place] [facility] [address] [id number] [place] [address]- 0996 Mar, [facility] [place] [facility] [address] [facility] [id number] [place] [address]- 3756 Mar, [facility] [place] [facility] [address] [id number] [place] [address]- 2555 Mar, [facility] [place] [facility] [address] [id number] [place] [address]- 6961 Mar, [facility] [place] [facility] [address] [id number] [place] [address]- 1018 Mar, [facility] [place] [facility] [id number] [address]- 9119 Mar, [facility] [place] [facility] [address] [id number] [place] [address]- 1001 Mar, [facility] [place] [facility] [address] [id number] [place] [address]- 2530 Mar, [facility] [place] [facility] [address] [facility] [id number] [place] [address]- 4614 Feb, [facility] [place] [facility] [address] [id number] [place] [address]- 5727 Feb, [facility] [place] [facility] [address] [id number], [place] [address]- 6964 Feb, [facility] [place] [facility] [address] [id number] [place] [address]- 7362 Feb, [facility] [place] [facility] [address] [facility] [id number] [place] [address]- 1918 Feb, [facility] [place] [facility] [address] [id number] [address]- 1561 Feb, [facility] [place] [facility] [address] [id number] [place] [address]- 5798 Feb, [facility] [place] [facility] [address] [id number] [place] [address]- 9034 Feb, [facility] [place] [facility] [address] [id number] [place] [address]- 7956 Feb, [facility] [place] [facility] [address] [id number] [place] [address]- 4526 Feb, [facility] [place] [facility] [address] [id number] [place] [address]- 0321 Feb, [facility] [place] [facility] [address] [id number] [place] [address]- 6917 Feb, [facility] [place] [facility] [address] [id number] [place] [address]- 6828 Feb, [facility] [place] [facility] [address] [id number] [place] [address]- 3234 Feb, [facility] [place] [facility] [address] [id number] [place] [address]- 8886 Feb, [facility] [place] [facility] [address] [id number] [place] [address]- 6214 Feb, [facility] [place] [facility] [address] [id number] [place] [address]- 1520 Jan, [facility] [place] [facility] [address] [id number] [place] [address]- 3409 Jan, [facility] [place] [facility] [address] [id number] [place] [address]- 4517 Jan, [facility] [place] [facility] [address] [id number] [place] [address]- 4184 Jan, [facility] [place] [facility] [address] [id number] [place] [address]- 6160 Jan, [facility] [place] [facility] [address] [id number] [place] [address]- 3440 Jan, [facility] [place] [facility] [address] [id number] [place] [address]- 7271 Jan, [facility] [place] [facility] [address] [id number] [place] [address]- 7067 Jan, [facility] [place] [facility] [address] [id number] [place] [address]- 7550 Jan, [facility] [place] [facility] [address] [id number] [place] [address]- 1535 Jan, [facility] [place] [facility] [address] [id number] [place] [address]- 2679 Jan, [facility] [place] [facility] [address] [id number] [place] [address]- 9997 Jan, [facility] [place] [facility] [address] [id number] [place] [address]- 8407 Jan, [facility] [place] [facility] [address] [id number] [place] [address]- 1441 Jan, [facility] [place] [facility] [address] [id number] [place] [address]- 1419 Jan, [facility] [place] [facility] [address] [id number] [place] [address]- 1622 Jan, [facility] [place] [facility] [address] [id number], [place] [address]- 9370 Jan, [facility] [place] [facility] [address] [id number], [place] [address]- 1257 21 Dec, 2011 [facility] [place] [facility] [address] [id number] [place] [address]- 9288 20 Dec, 2011 [facility] [place] [facility] [address] [id number], [place] [address]- 5920 18 Dec, 2011 [facility] [place] [facility] [address] [id number] [place] [address]- 3800 18 Dec, 2011 [facility] [place] [facility] [address] [id number] [place] [address]- 0296 10 Dec, 2011 [facility] [place] [facility] [address] [id number] [place] [address] 2546 10 Dec, 2011 [facility] [place] [facility] [address] [id number] [place] [address] 2546 10 Dec, 2011 [facility] [place] [facility] [address] [id number] [place] [address] 2546 Dec, [facility] [place] [facility] [address] [id number] [place] [address] 2546 30 Nov, 2011 [facility] [place] [facility] [address] [id number] [place] [address] Nov, [facility] [place] [facility] [address] [id number] [place] [address] 2546 Nov, [facility] [place] [facility] [address] [id number] [place] [address] Nov, [facility] [place] [facility] [address] [id number] [place] [address] 2543 Nov, [facility] [place] [facility] [address] [id number] [place] [address] 2546 Nov, [facility] [place] [facility] [address] [id number] [place] [address] 254 Oct, [facility] [place] [facility] [address] [id number] [place] [address] 2546 Oct, [facility] [place] [facility] [address] [id number] [place] [address] 2546 Oct, [facility] [place] [facility] [address] [id number] [place] [address] 2546 Oct, [facility] [place] [facility] [address] [id number] [place] [address] Oct, [facility] [place] [facility] [address] [id number] [place] [address] 2542 Oct, [facility] [place] [facility] [address] [id number] [place] [address] Oct, [facility] [place] [facility] [address] [id number] [place] [address] Sep, [facility] [place] [facility] [address] [id number] [place] [address] Sep, [facility] [place] [facility] [address] [id number] [place] [address]- [address]777 Sep, [facility] [place] [facility] [address] [id number] [place] [address] Sep, [facility] [place] [facility] [address] [id number] [place] [address] 46[address] Sep, [facility] [place] [facility] [address] [id number] [place] [address] Sep, [facility] [place] [facility] [address] [id number] [place] [address] Sep, [facility] [place] [facility] [address] [id number] [place] [address] 74[address] Sep, [facility] [place] [facility] [address] [id number] [place] [address]- [address] Sep, [facility] [place] [facility] [address] [id number] [place] [address] Sep, [facility] [place] [facility] [address] [id number] [place] [address] August, [facility] [place] [facility] [address] [id number] [place] [address]237 August, [facility] [place] [facility] [address] [id number] [place] [address] August, [facility] [place] [facility] [address] [id number] [place] [address] August, [facility] [place] [facility] [address] [id number] [place] [address] 8724 August, [facility] [place] [facility] [address] [id number] [place] [address] 4567 Jul, [facility] [place] [facility] [address] [id number] [place] [address] Jul, [facility] [place] [facility] [address] [id number] [place] Jul, [facility] [place] [facility] [address] [id number] [place] [address] Jul, [facility] [place] [facility] [address] [id number] [place] [address] Jul, [facility] [place] [facility] [address] [id number] [place] [address] Jul, [facility] [place] [facility] [address] [facility] [id number] [place] [address]- [address] Jul, [facility] [place] [facility] [address] [id number] [place] [address] Jun, [facility] [place] [facility] [address] [id number] [place] [address]- 4[address] Jun, [facility] [place] [facility] [address] [id number] [place] [address] Jun, [facility] [place] [facility] [address] [id number] [place] [address] 3422 Jun, [facility] [place] [facility] [address] [id number] [place] [address] Jun, [facility] [place] [facility] [address] [id number] [place] [address] May, [facility] [place] [facility] [address] [id number] [place] [address] May, [facility] [place] [facility] [address] [id number] [place] [address] May, [facility] [place] [facility] [address] [id number] [place] [address] May, [facility] [place] [facility] [address] [id number] [place] [address]- 8[address] May, [facility] [place] [facility] [address] [id number] [place] [address]- 0848 May, [facility] [place] [facility] [address] [id number] [place] [address], [place] [address] Apr, [facility] [place] [facility] [address] [id number] [place] [address] Mar, [facility] [place] [facility] [address] [id number] [place] [address], [place] [address] Feb, [facility] [place] [facility] [address] [id number] [place] [address]- 7484 Feb, [facility] [place] [facility] [address] [id number] [place] [address]- 0635 Feb, [facility] [place] [facility] [address] [id number] [place] [address]- 1747 Feb, [facility] [place] [facility] [address] [id number] [place] [address]- 3[address] Jan, [facility] [place] [facility] [address] [id number] [place] [address]- 7216 Jan, [facility] [place] [facility] [address] [id number] [place] [address]- 8907 Jan, [facility] [place] [facility] [address] [id number] [place] [address]- [address]60 24 Jan, 2011 [facility] [place] [facility] [address] [id number] [place] [address]- 2820 14 Jan, 2011 [facility] [place] [facility] [address] [id number] [place] [address]- 9399 19 Dec, 2010 [facility] [place] [facility] [address] [id number] [place] [address]- [address] Oct, [facility] [place] [facility] [address] [id number] [place] [address]- 3043 August, [facility] [place] [facility] [address] [id number] [place] [address]- 1846 29 Mar, 2010 [facility] [place] [facility] [address] [id number] [place] [address]- 7706 27 Mar, 2010 [facility] [place] [facility] [address] [id number] [place] [address]- 5348 16 Mar, 2010 [facility] [place] [facility] [address] [id number] [place] [address]- 4234 15 Mar, 2010 [facility] [place] [facility] [address] [id number] [place] [address]- 8389 15 Mar, 2010 [facility] [place] [facility] [address] [id number] [place] [address]- 1558 08 Mar, 2010 [facility] [place] [facility] [address] [id number] [place] [address]- 6099 Mar, [facility] [place] [facility] [address] [id number] [place] [address]- 7792 Feb, [facility] [place] [facility] [address] [id number] [place] [address]- [address]59 24 Feb, 2010 [facility] [place] [facility] [address] [id number], [place] [address] Feb, [facility] [place] [facility] [address] [id number], [place] [address] Jan, [facility] [place] [facility] [address] [id number] [place] [address]- 4496 Jan, [facility] [place] [facility] [address] [id number], [place] [address]- 16[address] Jan, [facility] [place] [facility] [address] [id number], [place] [address]- [address] Nov, [facility] [place] [facility] [address] [id number] [place] [address]- 8933 14 Sep, 2009 [facility] [address] [id number] [place] [address]- 3684 18 Aug, 2009 [facility] [address] [id number] [place] [address] 30 Mar, 2009 [facility] [address] [id number] [place] [address] 07 Mar, 2009 [facility] [place] [facility] [address] [id number] [place] [address] 17 Feb, 2009 [facility] [address] [id number] [place] [address], [place] [address] 10 Feb, 2009 [facility] [address] [id number] [place] [address] 10 Feb, 2009 [facility] [address] [facility] [id number] [place] [address] 10 Feb, 2009 [facility] [address] [id number] [place] [address] 06 Feb, 2009 [facility] [address] [facility] [id number] [place] [address] 27 Jan, 2009 [facility] [address] [facility] [id number], [place] [address] 26 Jan, 2009 [facility] [place] [facility] [address] [id number] [place] [address] 20 Jan, 2009 [facility] [place] [facility] [address] [id number], [place] [address] 19 Jan, 2009 [facility] [place] [facility] [address] [id number] [place] [address] 10 Nov, 2008 [facility] [place] [facility] [address] [id number] [place] [address] 16 Sep, 2008 [facility] [place] [facility] [address] [id number], [place] [address] August, [facility] [address] [facility] [id number] [place] [id number] Jul, [facility] [address] [facility] [id number] [place] [id number] May, IMMUNIZATIONS No Known Immunizations SOCIAL HISTORY Never Assessed REASON FOR VISIT requesting medication PLAN OF CARE VITAL SIGNS MEDICATIONS Medication [...]
[2017-07-16] MEDS ORDERED: SEVOFLURANE (ULTANE) 15 ML INHAL SOLN ONE ×5 (08:38→09:16)
[2017-07-16] MEDS ORDERED: PHENYLEPHRINE 100 MCG/ML 10 ML (ANESTHESIA) SYR ONE (08:38)
[2017-07-16] MEDS ORDERED: GLYCOPYRROLATE 0.2 MG/ML (ROBINUL) 2 ML VIAL ONE ×2 (08:59→09:02)
[2017-07-16] MEDS ORDERED: NEOSTIGMINE 1 MG/ML 5 ML SYRINGE ONE (08:59)
[2017-07-16] MEDS ORDERED: ONDANSETRON 4 MG/2 ML (SDV) Z0FRAN IVP PRN (09:30)
[2017-07-16] MEDS ORDERED: MEPERIDINE (DEMEROL) INJ 50 MG/ML IVP PRN (09:30)
[2017-07-16] MEDS ORDERED: fentaNYL INJECTION 100 MCG/2 ML AMP IVP PRN (09:30)
[2017-07-16] MEDS: HYDROmorphone 2 MG/ML VIAL (DILAUDID) IVP PRN ×4 (09:38→10:08)
--- NOTE | 2017-07-16 10:00 | Progress Note-Standard ---
Standard Progress Note Progress Notes/Assess & Plan Date Seen by Provider: Jul 16, 2017 Time Seen by Provider: 09:58 Progress/Assessment & Plan post op check no complaints radiographs--HW well positioned. No fractures LLE--2 plus DP pulse with brisk cap refill. intact df and pf of toes and ankle. sensation intact throughout. s/p LTKA mobilize as able ERIC BROOKE MD Jul 16, 2017 10:00
--- NOTE | 2017-07-16 10:52 | Diagnostic Imaging Report ---
INDICATION: Knee surgery. Time of exam: 9:49 AM Two views of the left knee demonstrate postop changes of total knee arthroplasty. Prosthetic elements are in good position. No fracture loosening is seen. Small osseous density along the medial joint line is noted. There are overlying skin mario. IMPRESSION: Satisfactory postop appearance to the left knee. Dictated by: Dictated on workstation # [id number]
[2017-07-16 11:00] VITALS: BP 129/59
[2017-07-16] MEDS: morphine PCA 30 MG/30 ML VIAL IV PRN (11:55)
[2017-07-16] MEDS: NS IV 1000 ML 1,000 ML IV SCH (11:55)
[2017-07-16] MEDS: SENNA W/DOCUSATE (SENOKOT S) TABLET PO SCH ×2 (11:58→20:47)
[2017-07-16] MEDS: oxyCODONE/APAP 5/325MG (PERCOCET 5) TABLET PO PRN ×2 (11:58→22:38)
--- NOTE | 2017-07-16 13:56 | Anesthesia-General Post-Op ---
General Patient Condition Mental Status/LOC: Same as Preop Cardiovascular: Satisfactory Nausea/Vomiting: Absent Respiratory: Satisfactory Pain: Controlled Complications: Absent Post Op Complications Complications None Follow Up Care/Instructions Patient Instructions None needed. Anesthesia/Patient Condition Patient Condition Patient is doing well, no complaints, stable vital signs, no apparent adverse anesthesia problems. No complications reported per nursing. MARGRET HIDALGO CRNA Jul 16, 2017 13:56
--- NOTE | 2017-07-16 14:19 | OPERATIVE REPORT ---
DATE OF SERVICE: 07/16/2017 PREOPERATIVE DIAGNOSIS: Left knee primary osteoarthritis. POSTOPERATIVE DIAGNOSIS: Left knee primary osteoarthritis. PROCEDURE PERFORMED: Left total knee arthroplasty. SURGEON: Albert Brooke MD. BUS REPAIR SUPERVISOR: AKHIL Anaya, who assisted throughout the procedure in closing the incision. ANESTHESIA: General endotracheal. TOURNIQUET TIME: 60 minutes at 250 mmHg. ESTIMATED BLOOD LOSS: Minimal. DRAINS: None. COMPLICATIONS: None. POSTOPERATIVE PLAN: Routine total knee protocol. The patient was transferred to the recovery room in awake and stable condition. STATEMENT OF MEDICAL NECESSITY: The patient is a 61-year-old female with longstanding progressive left knee pain. She undergone treatment with injections, anti-inflammatories and rest without relief. Radiographs revealed severe medial and patellofemoral arthrosis. Due to continued symptoms despite extensive conservative measures and functional impairment, the patient elected to proceed with surgical intervention. DESCRIPTION OF PROCEDURE: After risks and benefits of procedure were discussed and questions were answered and informed consent was signed and placed on chart. The operative site was confirmed in the preoperative holding are initialed by the surgeon. The patient was transferred to the operating room. After adequate levels of general endotracheal anesthetic were obtained, a timeout was called confirming the operative site. The left lower extremity was then prepped and draped in usual sterile fashion with the leg elevated and the knee flexed, tourniquet inflated to 250 mmHg. A standard anterior approach was utilized. Hemostasis was obtained with cautery. A medial parapatellar arthrotomy was performed leaving 1 cm cuff on the patella for later reattachment. A portion of the fat pad was resected. A subperiosteal release was performed on the proximal medial tibia being careful to stay on the bony surface. The ACL was resected. Intramedullary guide was passed into the femoral canal. The distal cutting block was placed. Distal cut was made. The femur was sized to a size 3. The 3 cutting block was placed parallel to the epicondylar axis and the cuts were made from posterior to anterior. Subperiosteal release was then carefully performed on the posterior distal femur being careful to stay on the bony surface. The intramedullary guide was then passed into the tibia. The cutting block was placed. The drop bj transected the intermalleolar axis and the cut was made. A 3-baseplate was placed. The drop bj again transected the intermalleolar axis and this was prepared with the drill and keel punch. Trials were inserted and the trochlear cut was made off the femoral trial. A 10 mm insert was placed and the patella was then prepared using the freehand technique by resecting 10 mm off the undersurface. The peg guide was placed and peg holes were drilled. A 29 trial was placed. The knee was taken through range of motion. Full extension was easily obtained, 130 degrees of flexion with gravity was obtained. There was no anterior/posterior or medial/lateral laxity in flexion or extension. The trials were removed. Joint was irrigated with pulse lavage. The periarticular block was placed in the posterior capsule, medial and lateral retinaculum extensor mechanism and subcutaneous tissues. The bone was irrigated and dried and the tibial baseplate was centered in position. Excessive cement was removed and the distal femur was irrigated and dried. The femoral prosthesis was cemented into position. Again, excess cement was removed. The knee was brought in full extension until cement cured. The undersurface of patella was irrigated and dried and the patellar button was cemented in position removing excessive cement. Once the cement cured, the knee was taken through range of motion, full extension was easily obtained, 130 degrees of flexion with gravity was obtained. The patella tracked well. There is no anterior/posterior or medial/lateral laxity in flexion or extension. The joint was irrigated with pulse lavage. The arthrotomy was closed with #2 Tevdek in [id number] fashion. The patella tracked well. No undue tension was noted at the repair site. Subcutaneous tissues were irrigated with pulse lavage using a total of 6 liters throughout the procedure. An #0 Vicryl was used for the deep subcutaneous tissue, 2-0 Vicryl for the superficial subcutaneous tissue, mario used on the skin. A soft dressing was applied. The tourniquet was deflated. The patient was transferred to the recovery room in awake and stable condition. Job ID: [id number] DocumentID: [id number] Dictated Date: 07/16/2017 09:33:23 Traffic Signal Mechanic Date: 07/16/2017 14:18:00 Dictated By: ALBERT BROOKE MD
[2017-07-16] MEDS: CEFUROXIME INJECTION 750 MG in NS (IVPB) 100 ML IV SCH ×2 (15:12→22:33)
--- NOTE | 2017-07-16 15:22 | Physical Therapy Evaluation ---
PT Evaluation-General Medical Diagnosis Admission Date Jul 16, 2017 at 07:05 Medical Diagnosis: left TKA Onset Date: Jul 16, 2017 Therapy Diagnosis Therapy Diagnosis: impaired mobility, strength, endurance, ROM Height/Weight Height (Feet): 5 Height (Inches): 3.00 Weight (Pounds): 158 Weight (Ounces): 0.0 Precautions Precautions/Isolations: Standard Precautions Weight Bear Status Left Lower Extremity: Left Weight Bearing/Tolerated Referral Physician: Paresh Harrison Reason for Referral: Evaluation/Treatment Medical History Pertinent Medical History: Atrial Fib, DM, OA Additional Medical History cervical disk disease, DVT, osteoporosis, RLS, anxiety, scoliosis, lumbar stenosis, surg (cardiac ablation, cholecystectomy, elbow, wrist, cervical) Reviewed History: Yes Social History Home: Single Level Current Living Status: Spouse Entry Into Home: Level Entry Prior/Core FIM Prior Level of Function Functional [place] Measure 0=Not Assessed/NA 4=Minimal Assistance 1=Total Assistance 5=Supervision or Setup 2=Maximal Assistance 6=Modified [place] 3=Moderate Assistance 7=Complete [place] Bed Mobility: 6 Transfers (B,C,W/C) (FIM): 6 Gait: 6 Patient states she uses a rolling walker at home PT Evaluation-Current Subjective Patient in bed pre tx, agrees to PT, has 10/10 pain, nurse is aware of pain levels and comes during treatment to reinforce her dressing due to seeping. Pt/Family Goals to be independent at home Objective Patient Orientation: Person, Place, Situation Attachments: SCD's, Oxygen, IV 3L of O2 nasal canula ROM/Strength ROM Lower Extremities left knee flexion 50 degrees, extension +10 degrees Strength Lower Extremities NT due to recent surgery Sensory Hearing: Functional Sensation Right Lower Extremit: Intact Sensation Left Lower Extremity: Intact Transfers Functional [place] Measure 0=Not Assessed/NA 4=Minimal Assistance 1=Total Assistance 5=Supervision or Setup 2=Maximal Assistance 6=Modified [place] 3=Moderate Assistance 7=Complete [place] Transfers (B, C, W/C) (FIM): 4 Scootin Rollin Supine to/from Sit: 4 Sit to/from Stand: 4 Patient needs assist with left leg getting into and out of bed. CGA for sit to stand. Gait Mode of Locomotion: Walk Anticipated Mode of Locomotion: Walk Gait (FIM): 1 Distance: 4' Gait Level of Assist: 4 Gait Persons Needed: 1 Gait Assistive Device: FWW Comments/Gait Description Patient ambulated a couple of feet forward and started getting shaky and stated that she felt very weak. She ambulated 2' back to the bed and sat down. Balance Sitting Static: Normal Sitting Dynamic: Normal Standing Static: Fair Standing Dynamic: Fair Treatment supine TKA protocol x10 (AP, QS, HS, SAQ, SLR), CPM donned on left leg and adjusted to fit and set to 46/-2, SCD's and polar care also donned Assessment/Needs Patient has impaired mobility, strength, endurance, ROM post left TKA Rehab Potential: Fair PT Short Term Goals Short Term Goals Time Frame: Jul 23, 2017 Transfers (B,C,W/C) (FIM): 5 Gait (FIM): 2 Gait Distance Comment: 50' Gait Level of Assist: 5 Gait Assistive Device: FWW PT Plan Problem List Problem List: Activity Tolerance, Functional Strength, Safety, Balance, Gait, Transfer, Bed Mobility, ROM Treatment/Plan Treatment Plan: Continue Plan of Care Treatment Plan: Bed Mobility, Education, Functional Activity Allison, Functional Strength, Gait, Safety, Therapeutic Exercise, Transfers Treatment Duration: Jul 23, 2017 Frequency: 11 times per week Estimated Hrs Per Day: .25 hour per day Patient and/or Family Agrees t: Yes Safety Risks/Education Patient Education: Gait Training, Transfer Techniques, Reviewed Precautions, Correct Positioning, Disease Process, Safety Issues Teaching Recipient: Patient Teaching Methods: Demonstration, Discussion Response to Teaching: Reinforcement Needed Discharge Recommendations Plan Patient will perform bed mobility and transfer training, balance and endurance training, functional strengthening, stair training, gait training, and education , to improve functional mobility and independence at home. Therapy D/C Recommendations: Home w/ Family Support Time/GCodes Time In: 1440 Time Out: 1515 Total Billed Treatment Time: 35 Total Billed Treatment 1 visit EVL 20' GT 15' ROX KOCH PT Jul 16, 2017 15:21
[2017-07-16 16:47] VITALS: BP 95/54
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
[2017-07-16 20:20] VITALS: BP 100/60
[2017-07-16] MEDS: ATORVASTATIN 10 MG (LIPITOR) TABLET PO SCH (20:47)
[2017-07-16] MEDS ORDERED: NON-FORMULARY MEDICATION 1 EA EA (Budesonide/Formoterol Fumarate (Symbicort 160-4.5 Mcg In IH SCH (21:00)
[2017-07-16] MEDS ORDERED: NON-FORMULARY MEDICATION 1 EA EA (Simvastatin 20 MG) PO SCH (21:00)
[2017-07-16] MEDS ORDERED: SIMvastatin 20 MG (ZOCOR) TAB PO SCH (21:00)
[2017-07-17] VITALS: BP 87/55
[2017-07-17] MEDS: NS IV 1000 ML 1,000 ML IV SCH ×3 (00:47→13:04)
[2017-07-17] MEDS: oxyCODONE/APAP 5/325MG (PERCOCET 5) TABLET PO PRN ×6 (00:49→22:01)
[2017-07-17 04:00] VITALS: BP 102/58
[2017-07-17] MEDS: PANTOPRAZOLE 40 MG (PROTONIX) TAB PO SCH (06:13)
[2017-07-17] MEDS: MULTIVIT W/MINERALS TAB (THERAGRAN M) PO SCH (06:13)
[2017-07-17 07:17] LABS: HEMOGLOBIN 10.2 G/DL (11.5-16.0)
--- NOTE | 2017-07-17 07:51 | Progress Note-Standard ---
Standard Progress Note Progress Notes/Assess & Plan Date Seen by Provider: Jul 17, 2017 Time Seen by Provider: 07:50 Progress/Assessment & Plan post op check no complaints radiographs--HW well positioned. No fractures LLE--2 plus DP pulse with brisk cap refill. intact df and pf of toes and ankle. sensation intact throughout. s/p LTKA mobilize as able Final Diagnosis c/o nausea Vital Signs Date Time Temp Pulse Resp B/P (MAP) Pulse Ox O2 Delivery O2 Flow Rate FiO2 07/17/17 06:30 16 07/17/17 04:00 98.3 72 17 102/58 (73) 95 Nasal Cannula 3.00 07/17/17 00:00 97.8 70 17 87/55 (66) 95 Nasal Cannula 3.00 07/16/17 20:46 Nasal Cannula 3.00 07/16/17 20:20 97.9 73 16 100/60 (73) 93 07/16/17 18:00 16 07/16/17 16:47 98.1 89 16 95/54 (68) 91 07/16/17 15:51 91 Nasal Cannula 2.00 07/16/17 15:49 93 Nasal Cannula 3.00 07/16/17 11:00 98.3 111 22 129/59 (82) 93 Nasal Cannula 3.00 I & O 07/17/17 07:00 Intake Total 5950 ml Output Total 2800 ml Balance 3150 ml Laboratory Tests Test 07/17/17 06:22 Range/Units Hemoglobin 10.2 #L 11.5-16.0 G/DL Hematocrit 31 L 35-52 % LLE--dressing intact. NVI distally. Neg Yovani's s/p LTKA mobilize ERIC BROOKE MD Jul 17, 2017 07:51
[2017-07-17 08:00] VITALS: BP 95/56
[2017-07-17] MEDS: ARIPIPRAZOLE 10 MG (ABILIFY) TAB PO SCH (08:33)
[2017-07-17] MEDS: DILTIAZEM 240 MG (CARDIZEM CD) CAP PO SCH (08:33)
[2017-07-17] MEDS: ENOXAPARIN 30 MG/0.3 ML (LOVENOX) SYR SC SCH ×2 (08:33→19:34)
[2017-07-17] MEDS: SENNA W/DOCUSATE (SENOKOT S) TABLET PO SCH ×2 (08:33→19:34)
[2017-07-17] MEDS: ASPIRIN E.C. 81 MG (ECOTRIN) TAB PO SCH ×2 (08:34→09:02)
[2017-07-17] MEDS: ONDANSETRON 4 MG/2 ML (SDV) Z0FRAN IVP PRN ×3 (08:55→19:40)
[2017-07-17] MEDS ORDERED: NON-FORMULARY MEDICATION 1 EA EA (Aripiprazole 10 MG) PO SCH (09:00)
[2017-07-17] MEDS ORDERED: NON-FORMULARY MEDICATION 1 EA EA (Diltiazem HCl (Diltiazem ER) 240 MG) PO SCH (09:00)
[2017-07-17] MEDS ORDERED: NON-FORMULARY MEDICATION 1 EA EA (Omeprazole 40 MG) PO SCH (09:00)
[2017-07-17] MEDS ORDERED: METOPROLOL SUCCINATE 25 MG PO SCH (09:00)
--- NOTE | 2017-07-17 09:30 | Physical Therapy Daily Note ---
PT Daily Note-Current Subjective Patient agrees to PT. Patient c/o nausea and RN is aware. Pain Numeric Pain Scale: 8 Location: Left Location Body Site: Knee Pain Description: Heavy Mental Status Patient Orientation: Normal For Age Attachments: Oxygen (3L), Crain Catheter, IV Transfers Functional Thomas Measure 0=Not Assessed/NA 4=Minimal Assistance 1=Total Assistance 5=Supervision or Setup 2=Maximal Assistance 6=Modified Thomas 3=Moderate Assistance 7=Complete IndependenceIRFPAI Quality Coding Scale 6 Independent with activity with or without an assistive device 5 Patient requires set up or clean up by helper. Patient completes activity by themselves 4 Supervision or touching assist (CGA). [place] provide cues , steadying assist 3 The helper provides less than half the effort to complete the activity 2 The helper provides more than half the effort to complete the activity 1 Dependent. The helper does all the effort to complete an activity 7 Patient refused to complete or attempt activity 9 The patient did not perform the activity before the current illness or injury 88 Not attempted due to Medical conditions or safety concerns Transfers (B, C, W/C) (FIM): 4 Scootin Rollin Supine to/from Sit: 5 Sit to/from Stand: 4 Bed to/from Chair: 4 Weight Bearing Left Lower Extremity: Left Weight Bearing/Tolerated Gait Training Gait (FIM): 2 Distance (FIM): 1=738-09 ft Distance: 75' Gait Level of Assist: 4 Gait Persons Needed: 1 Gait Assistive Device: FWW CGA for safety. Patient demonstrates NBOS and decrease gait sequence Exercises Supine Ex: Ankle pumps, Quad Set, Heel Slides, Straight leg raise Supine Reps: 10 Seated Therapy Exercises: Long arc quads Seated Reps: 10 Assessment Patient is up in recliner with needs met. PT to increase activity as patient tolerates. Patient reports she has caregivers at home upon dismissal to home. PT Short Term Goals Short Term Goals Time Frame: Jul 23, 2017 Transfers (B,C,W/C) (FIM): 5 Gait (FIM): 2 Gait Distance Comment: 50' Gait Level of Assist: 5 Gait Assistive Device: FWW PT Plan Treatment/Plan Treatment Plan: Continue Plan of Care Treatment Plan: Bed Mobility, Education, Functional Activity Allison, Functional Strength, Gait, Safety, Therapeutic Exercise, Transfers Treatment Duration: Jul 23, 2017 Frequency: 11 times per week Estimated Hrs Per Day: .25 hour per day Patient and/or Family Agrees t: Yes Time/GCodes Time In: 820 Time Out: 847 Total Billed Treatment Time: 27 Total Billed Treatment 1 visit EX 14 min GT 13 min ZOYA HANNON PT Jul 17, 2017 09:30
--- NOTE | 2017-07-17 11:40 | Occupational Therapy Eval ---
OT Evaluation-General/PLF Medical Diagnosis Admission Date Jul 16, 2017 at 07:05 Medical Diagnosis: left TKA Onset Date: Jul 16, 2017 Therapy Diagnosis Therapy Diagnosis: Decreased ADL skills Height/Weight Height (Feet): 5 Height (Inches): 3.00 Weight (Pounds): 158 Weight (Ounces): 0.0 Precautions Precautions/Isolations: Fall Prevention, Standard Precautions Safety Interventions: Bed Exit Alarm Weight Bear Status Weight Bearing Restriction: Weight Bearing/Tolerated Referral Physician: Paresh Harrison Referral Reason: Activity Tolerance, Self Care, Evaluation/Treatment, Strengthening/ROM Medical History Pertinent Medical History: Atrial Fib, DM, OA Additional Medical History Cervical disk disease, DVT, RLS, anxiety, scoliosis, cuvital tunnel, left and right elbow surgery. Current History Pt. had elective knee surgery after failing conservative measures. States that she is supposed to have the other one completed as well. Reviewed History: Yes Social History Home: Single Level Current Living Status: Spouse Entry Into Home: Level Entry ADL-Prior Level of Function ADL PLOF Comments Pt. states that she was independent with daily tasks prior to this. DME/Equipment: Bath Chair, Tub/Shower DME/Equipment Comments Pt. has a walker and wheelchair. Occupation: Pt. is disabled. States that she has no hobbies. Drive Self: Yes OT Current Status Subjective Pt. reports 10/10 pain in knee. Nursing comes in to give pt. pain medication. Appearance Pt. up in chair. Requests to go back to bed. Mental Status/Objective Patient Orientation: Person, Place, Time Attachments: IV, Oxygen, Polar Pack Current Glasses/Contacts: Yes Upper Extremity ROM WFL ADL-Treatment Functional [place] Measure 0=Not Assessed/NA 4=Minimal Assistance 1=Total Assistance 5=Supervision or Setup 2=Maximal Assistance 6=Modified [place] 3=Moderate Assistance 7=Complete IndependenceIRFPAI Quality Coding Scale 6 Independent with activity with or without an assistive device 5 Patient requires set up or clean up by helper. Patient completes activity by themselves 4 Supervision or touching assist (CGA). [place] provide cues , steadying assist 3 The helper provides less than half the effort to complete the activity 2 The helper provides more than half the effort to complete the activity 1 Dependent. The helper does all the effort to complete an activity 7 Patient refused to complete or attempt activity 9 The patient did not perform the activity before the current illness or injury 88 Not attempted due to Medical conditions or safety concerns Lower Body Dressing (FIM): 1 (Pt. unable to reach her feet to doff socks.) Toileting (FIM): 1 (Pt. has catheter. This OT emptied it and documented it. Pt. has not had BM since surgery.) Transfers (B, C, W/C) (FIM): 4 (Pt. required min assist to stand, and min assist to transfer to bed. Min assist to get left foot into bed. Pt. did require increased time however.) Polar pack replaced, SCDs put on pt. All needs met in bed. Education OT Patient Education: Modified ADL techniques, Progress toward Goal/Update tx plan, Purpose of tx/functional activities, Reviewed precautions, Rehab process, Transfer techniques Teaching Recipient: Patient Teaching Methods: Demonstration, Discussion Response to Teaching: Verbalize Understanding, Return Demonstration OT Short Term Goals Short Term Goals Transfers (B,C,W/C) (FIM): 5 1=Demonstrate adherence to instructed precautions during ADL tasks. 2=Patient will verbalize/demonstrate understanding of assistive devices/ modifications for ADL. 3=Patient will improve strength/tolerance for activity to enable patient to perform ADL's. OT Pipe Connector Goals Pipe Connector Goals Time Frame: Jul 24, 2017 Eating (FIM): 6 Grooming(FIM): 6 Bathing(FIM): 5 Upper Body Dressing(FIM): 6 Lower Body Dressing(FIM): 5 Toileting(FIM): 6 Transfers (B,C,W/C) (FIM): 6 Toilet/Commode Transfer(FIM): 6 Shower Transfer(FIM): 5 Additional Goals: 1-Demonstrate ADL Tasks, 2-Verbalize Understanding, 3- ImproveStrength/[place] 1=Demonstrate adherence to instructed precautions during ADL tasks. 2=Patient will verbalize/demonstrate understanding of assistive devices/ modifications for ADL. 3=Patient will improve strength/tolerance for activity to enable patient to perform ADL's. OT Education/Plan Problem List/Assessment Assessment: Decreased Activ Tolerance, Dependent Transfers, Impaired Bed Mobility, Impaired I ADL's, Impaired Self-Care Skills Discharge Recommendations Plan/Recommendations: Continue POC Therapy D/C Recommendations: Home w/ Family Support, Occupational Therapy Home Care Equpiment Recommendations-D/C: Hip Kit Comment Will complete ADL equipment training when pt. having less pain. Treatment Plan/Plan of Care Treatment,Training & Education: Yes Patient would benefit from OT for education, treatment and training to promote independence in ADL's, mobility, safety and/or upper extremity function for ADL' s. Plan of Care: ADL Retraining, Functional Mobility, UE Funct Exercise/Act Treatment Duration: Jul 24, 2017 Frequency: 5 times per week Estimated Hrs Per Day: .25 hour per day Agreement: Yes Rehab Potential: Good Time/GCodes Start Time: 11:00 Stop Time: 11:25 Total Time Billed (hr/min): 25 Billed Treatment Time 1, EVH x 10minutes, FA x 15minutes TITUS ALVAREZ OT Jul 17, 2017 11:40
[2017-07-17 12:00] VITALS: BP 95/55
--- NOTE | 2017-07-17 12:07 | Anesthesia-General Post-Op ---
General Patient Condition Mental Status/LOC: Same as Preop Cardiovascular: Satisfactory Nausea/Vomiting: Absent Respiratory: Satisfactory Pain: Controlled Complications: Absent Post Op Complications Complications None Follow Up Care/Instructions Patient Instructions None needed. Anesthesia/Patient Condition Patient Condition Patient is doing well, no complaints, stable vital signs, no apparent adverse anesthesia problems. No complications reported per nursing. JOSSE CERNA CRNA Jul 17, 2017 12:07
--- NOTE | 2017-07-17 13:19 | Physical Therapy Daily Note ---
PT Daily Note-Current Subjective Patient agrees to PT. She c/o nausea. RN in to administer meds. Pain Numeric Pain Scale: 9 Location: Left Location Body Site: Knee Pain Description: Acute Mental Status Patient Orientation: Normal For Age Attachments: Oxygen, Crain Catheter, Polar Pack, IV Transfers Functional [place] Measure 0=Not Assessed/NA 4=Minimal Assistance 1=Total Assistance 5=Supervision or Setup 2=Maximal Assistance 6=Modified [place] 3=Moderate Assistance 7=Complete IndependenceIRFPAI Quality Coding Scale 6 Independent with activity with or without an assistive device 5 Patient requires set up or clean up by helper. Patient completes activity by themselves 4 Supervision or touching assist (CGA). [place] provide cues , steadying assist 3 The helper provides less than half the effort to complete the activity 2 The helper provides more than half the effort to complete the activity 1 Dependent. The helper does all the effort to complete an activity 7 Patient refused to complete or attempt activity 9 The patient did not perform the activity before the current illness or injury 88 Not attempted due to Medical conditions or safety concerns Weight Bearing Left Lower Extremity: Left Weight Bearing/Tolerated Exercises Supine Ex: Ankle pumps, Quad Set, Heel Slides, Short Arc Quads, Straight leg raise Supine Reps: 10 (2 sets) Assessment Patient performs exercises without difficulty. PT placed CPM 0-60 degrees with polar pack in place. PT to increase activity as tolerated by patient. PT Short Term Goals Short Term Goals Time Frame: Jul 23, 2017 Transfers (B,C,W/C) (FIM): 5 Gait (FIM): 2 Gait Distance Comment: 50' Gait Level of Assist: 5 Gait Assistive Device: FWW PT Plan Treatment/Plan Treatment Plan: Continue Plan of Care Treatment Plan: Bed Mobility, Education, Functional Activity [place], Functional Strength, Gait, Safety, Therapeutic Exercise, Transfers Treatment Duration: Jul 23, 2017 Frequency: 11 times per week Estimated Hrs Per Day: .25 hour per day Patient and/or Family Agrees t: Yes Time/GCodes Time In: 1248 Time Out: 1311 Total Billed Treatment Time: 23 Total Billed Treatment 1 visit EX x 2 23 min ZOYA HANNON PT Jul 17, 2017 13:19
--- NOTE | 2017-07-17 15:13 | Progress Note (SOAP) ---
Subjective Subjective/Events-last exam Patient sitting up in chair this AM. Tolerating PO diet. No complaints this AM Review of Systems Date Seen by Provider: Jul 17, 2017 Time Seen by Provider: 11:20 Pulmonary: No Dyspnea, No Cough Cardiovascular: No: Chest Pain, Palpitations Gastrointestinal: No: Nausea, Vomiting, Diarrhea, Constipation Musculoskeletal: leg pain (Left) Objective Exam Last Set of Vital Signs Vital Signs Date Time Temp Pulse Resp B/P (MAP) Pulse Ox O2 Delivery O2 Flow Rate FiO2 07/17/17 12:00 99.0 78 18 95/55 (68) 96 Nasal Cannula 3.00 Capillary Refill : Less Than 3 Seconds I&O Intake and Output 07/17/17 00:00 Intake Total 4100 ml Output Total 1550 ml Balance 2550 ml Intake Oral 1900 ml IV Total 2200 ml Output Urine Total 1500 ml Estimated Blood Loss 50 ml Daily Weight Change No General: Alert, Oriented X3, Cooperative, No Acute Distress HEENT: Mucous Memb Moist/[place] Lungs: Clear to Auscultation, Normal Air Movement Heart: Regular Rate, No Murmurs Extremities: Other (1+ pitting edema LLE) Neuro: Normal Speech, Sensation Intact, Cranial Nerves 3-12 NL Results/Procedures Lab Laboratory Tests 07/17/17 06:22: Hemoglobin 10.2#L, Hematocrit 31L Assessment/Plan Assessment/Plan (1) Total knee replacement status Status: Acute Assessment & Plan: s/p Left total knee POD #1 Plan for home with HH with PT Qualifiers: Qualified Codes: Z96.652 - Presence of left artificial knee joint (2) Osteoarthritis of left knee Status: Chronic Qualifiers: Qualified Codes: M17.12 - Unilateral primary osteoarthritis, left knee (3) CAD (coronary artery disease) Status: Chronic Assessment & Plan: - Continue home meds Qualifiers: Qualified Codes: I25.10 - Atherosclerotic heart disease of [place] coronary artery without angina pectoris (4) Non-insulin treated type 2 diabetes mellitus Status: Chronic Assessment & Plan: - A1c 06/2017 was 5.7, Continue to monitor blood sugars (5) Chronic atrial fibrillation Status: Chronic Assessment & Plan: - On Eliquis at home, started on Lovenox by Ortho (6) COPD (chronic obstructive pulmonary disease) with chronic bronchitis Status: Chronic Assessment & Plan: - Home oxygen of 5, Will continue to titrate oxygen as tolerated (7) HLD (hyperlipidemia) Status: Chronic Assessment & Plan: - Continue home statin Qualifiers: Qualified Codes: E78.2 - Mixed hyperlipidemia Clinical Quality Measures DVT/VTE Risk/Contraindication: Risk Factor Score Per Nursin RFS Level Per Nursing on Admit: 4+=Very High JAMEL GALLEGO MD Jul 17, 2017 15:13
[2017-07-17 15:25] VITALS: BP 97/55
[2017-07-17] MEDS: RT-ADVAIR HFA 115/21 MCG PER PUFF IH SCH ×2 (15:36→20:20)
[2017-07-17] MEDS: morphine PCA 30 MG/30 ML VIAL IV PRN (16:44)
[2017-07-17] MEDS: ATORVASTATIN 10 MG (LIPITOR) TABLET PO SCH (19:34)
[2017-07-17 20:03] VITALS: BP 97/54
[2017-07-17] MEDS ORDERED: BENZONATATE 100 MG (TESSALON) CAPSULE PO ONE (23:12)
[2017-07-17] MEDS: BENZONATATE 100 MG (TESSALON) CAPSULE PO PRN (23:17)
[2017-07-18] VITALS: BP 104/61
[2017-07-18] MEDS: oxyCODONE/APAP 5/325MG (PERCOCET 5) TABLET PO PRN ×6 (01:35→22:35)
[2017-07-18] MEDS: NS IV 1000 ML 1,000 ML IV SCH (01:35)
[2017-07-18] MEDS: morphine PCA 30 MG/30 ML VIAL IV PRN (03:19)
[2017-07-18 03:45] VITALS: BP 105/55
[2017-07-18] MEDS: BENZONATATE 100 MG (TESSALON) CAPSULE PO PRN ×2 (05:57→16:38)
[2017-07-18] MEDS: PANTOPRAZOLE 40 MG (PROTONIX) TAB PO SCH (05:57)
[2017-07-18] MEDS: MULTIVIT W/MINERALS TAB (THERAGRAN M) PO SCH (05:57)
[2017-07-18 06:46] LABS: BASOPHILS % (AUTO) 0 % (0-10); EOSINOPHILS # (AUTO) 0.2 10^3/uL (0.0-0.3); EOSINOPHILS % (AUTO) 2 % (0-10); HEMATOCRIT 33 % (35-52); HEMOGLOBIN 10.5 G/DL (11.5-16.0); LYMPHOCYTES # (AUTO) 1.7 X 10^3 (1.0-4.0); LYMPHOCYTES % (AUTO) 23 % (12-44); MEAN CORPUSCULAR HEMOGLOBIN 29 PG (25-34); MEAN CORPUSCULAR HGB CONC 32 G/DL (32-36); MEAN CORPUSCULAR VOLUME 91 FL (80-99); MONOCYTES # (AUTO) 1.2 X 10^3 (0.0-1.0); MONOCYTES % (AUTO) 16 % (0-12); NEUTROPHILS # (AUTO) 4.4 X 10^3 (1.8-7.8); NEUTROPHILS % (AUTO) 60 % (42-75); PLATELET COUNT 218 10^3/uL (130-400); RED BLOOD COUNT 3.61 10^6/uL (4.35-5.85); RED CELL DISTRIBUTION WIDTH 14.9 % (10.0-14.5); WHITE BLOOD COUNT 7.4 10^3/uL (4.3-11.0)
[2017-07-18] MEDS ORDERED: morphine INJ 10 MG/ML 1ML (SYR OR VIAL) IVP PRN (07:00)
--- NOTE | 2017-07-18 07:01 | Progress Note-Standard ---
Standard Progress Note Progress Notes/Assess & Plan Date Seen by Provider: Jul 18, 2017 Time Seen by Provider: 07:00 Progress/Assessment & Plan post op check no complaints radiographs--HW well positioned. No fractures LLE--2 plus DP pulse with brisk cap refill. intact df and pf of toes and ankle. sensation intact throughout. s/p LTKA mobilize as able Final Diagnosis NO complaints Vital Signs Date Time Temp Pulse Resp B/P (MAP) Pulse Ox O2 Delivery O2 Flow Rate FiO2 07/18/17 03:45 98.8 105 18 105/55 (72) 93 Nasal Cannula 3.00 07/18/17 03:25 16 07/18/17 03:19 18 07/18/17 00:00 98.9 123 18 104/61 (75) 95 Nasal Cannula 3.00 07/17/17 20:29 Nasal Cannula 3.00 07/17/17 20:21 92 Nasal Cannula 3.00 07/17/17 20:03 98.4 98 16 97/54 (68) 94 07/17/17 17:08 18 07/17/17 16:44 20 07/17/17 15:31 Nasal Cannula 2.00 07/17/17 15:25 99.7 81 20 97/55 (69) 97 Nasal Cannula 3.00 07/17/17 12:00 99.0 78 18 95/55 (68) 96 Nasal Cannula 3.00 07/17/17 08:36 Nasal Cannula 3.00 07/17/17 08:00 99.1 85 18 95/56 (69) 93 Nasal Cannula 3.00 I & O 07/18/17 07:00 Intake Total 6140 ml Output Total 4950 ml Balance 1190 ml Laboratory Tests Test 07/18/17 05:41 Range/Units White Blood Count 7.4 4.3-11.0 10^3/uL Red Blood Count 3.61 L 4.35-5.85 10^6/uL Hemoglobin 10.5 L 11.5-16.0 G/DL Hematocrit 33 L 35-52 % Mean Corpuscular Volume 91 80-99 FL Mean Corpuscular Hemoglobin 29 25-34 PG Mean Corpuscular Hemoglobin Concent 32 32-36 G/DL Red Cell Distribution Width 14.9 H 10.0-14.5 % Platelet Count 218 130-400 10^3/uL Mean Platelet Volume 11.0 H 7.4-10.4 FL Neutrophils (%) (Auto) 60 42-75 % Lymphocytes (%) (Auto) 23 12-44 % Monocytes (%) (Auto) 16 H 0-12 % Eosinophils (%) (Auto) 2 0-10 % Basophils (%) (Auto) 0 0-10 % Neutrophils # (Auto) 4.4 1.8-7.8 X 10^3 Lymphocytes # (Auto) 1.7 1.0-4.0 X 10^3 Monocytes # (Auto) 1.2 H 0.0-1.0 X 10^3 Eosinophils # (Auto) 0.2 0.0-0.3 10^3/uL Basophils # (Auto) 0.0 0.0-0.1 10^3/uL LLE--incision clean and dry. No calf tenderness. Neg SLR s/p LTKA continue PT/OT likely DC tomorrow ERIC BROOKE MD Jul 18, 2017 07:01
[2017-07-18 07:07] LABS: ALANINE AMINOTRANSFERASE 206 U/L (0-55); ALBUMIN 3.5 GM/DL (3.2-4.5); ALKALINE PHOSPHATASE 270 U/L (40-136); BILIRUBIN,TOTAL 1.2 MG/DL (0.1-1.0); BUN/CREATININE RATIO 13; CALCIUM 9.1 MG/DL (8.5-10.1); CARBON DIOXIDE 24 MMOL/L (21-32); CHLORIDE 102 MMOL/L (98-107); CREATININE SERUM 0.55 MG/DL (0.60-1.30); GFR ESTIMATED > 60; GLUCOSE 71 MG/DL (70-105); SODIUM 137 MMOL/L (135-145); TOTAL PROTEIN 6.1 GM/DL (6.4-8.2)
[2017-07-18 08:00] VITALS: BP 91/52
[2017-07-18] MEDS: ARIPIPRAZOLE 10 MG (ABILIFY) TAB PO SCH (09:27)
[2017-07-18] MEDS: SENNA W/DOCUSATE (SENOKOT S) TABLET PO SCH ×2 (09:27→20:18)
[2017-07-18] MEDS: DILTIAZEM 240 MG (CARDIZEM CD) CAP PO SCH (09:27)
[2017-07-18] MEDS: ENOXAPARIN 30 MG/0.3 ML (LOVENOX) SYR SC SCH ×2 (09:28→20:13)
[2017-07-18] MEDS: ASPIRIN E.C. 81 MG (ECOTRIN) TAB PO SCH (09:28)
--- NOTE | 2017-07-18 10:47 | Physical Therapy Daily Note ---
PT Daily Note-Current Subjective Patient agrees to PT. Pain Numeric Pain Scale: 8 Location: Left Location Body Site: Knee Pain Description: Acute Mental Status Patient Orientation: Normal For Age Transfers Functional [place] Measure 0=Not Assessed/NA 4=Minimal Assistance 1=Total Assistance 5=Supervision or Setup 2=Maximal Assistance 6=Modified [place] 3=Moderate Assistance 7=Complete IndependenceIRFPAI Quality Coding Scale 6 Independent with activity with or without an assistive device 5 Patient requires set up or clean up by helper. Patient completes activity by themselves 4 Supervision or touching assist (CGA). [place] provide cues , steadying assist 3 The helper provides less than half the effort to complete the activity 2 The helper provides more than half the effort to complete the activity 1 Dependent. The helper does all the effort to complete an activity 7 Patient refused to complete or attempt activity 9 The patient did not perform the activity before the current illness or injury 88 Not attempted due to Medical conditions or safety concerns Transfers (B, C, W/C) (FIM): 5 Scootin Rollin Supine to/from Sit: 5 Sit to/from Stand: 5 Bed to/from Chair: 5 Weight Bearing Right Lower Extremity: Right Weight Bearing/Tolerated Left Lower Extremity: Left Weight Bearing/Tolerated Gait Training Gait (FIM): 5 Distance (FIM): 3=150 ft Distance: 150' Gait Level of Assist: 5 Gait Assistive Device: FWW slow, antalgic gait sequence Exercises Supine Ex: Ankle pumps, Quad Set, Heel Slides, Straight leg raise Supine Reps: 10 Seated Therapy Exercises: Ankle pumps, Long arc quads Seated Reps: 20 Treatments CPM 0-76 degrees with polar pack in place. Assessment Patient tolerated treatment well and is working toward goals. Patient will dismiss to home with caregivers tomorrow. PT Short Term Goals Short Term Goals Time Frame: Jul 23, 2017 Transfers (B,C,W/C) (FIM): 5 Gait (FIM): 2 Gait Distance Comment: 50' Gait Level of Assist: 5 Gait Assistive Device: FWW PT Plan Treatment/Plan Treatment Plan: Continue Plan of Care Treatment Plan: Bed Mobility, Education, Functional Activity [place], Functional Strength, Gait, Safety, Therapeutic Exercise, Transfers Treatment Duration: Jul 23, 2017 Frequency: 11 times per week Estimated Hrs Per Day: .25 hour per day Patient and/or Family Agrees t: Yes Time/GCodes Time In: 1012 Time Out: 1037 Total Billed Treatment Time: 25 Total Billed Treatment 1 visit EX 15 min GT 10 min ZOYA HANNON PT Jul 18, 2017 10:47
[2017-07-18] MEDS: RT-ADVAIR HFA 115/21 MCG PER PUFF IH SCH ×2 (10:52→19:37)
--- NOTE | 2017-07-18 11:59 | Occupational Ther Daily Note ---
OT Current Status-Daily Note Subjective Pt in bed, agrees to treatment, requests to use BSC. Pt reports pain in left knee. Mental Status/Objective Functional [place] Measure 0=Not Assessed/NA 4=Minimal Assistance 1=Total Assistance 5=Supervision or Setup 2=Maximal Assistance 6=Modified [place] 3=Moderate Assistance 7=Complete [place] Attachments: Oxygen ADL-Treatment Pt supine to sit with minimal assistance for left LE. Increased time for mobility. Sit to stand and transfer to BSC with SBA using FWW, slow pace. Pt able to complete toileting hygiene with SBA. Pt requests to return to bed secondary to pain. Sit to supine with minimal assistance for left LE. Pt resting in bed with needs met after session. Toileting (FIM): 5 Toilet/Commode Transfer (FIM): 5 OT Short Term Goals Short Term Goals Transfers (B,C,W/C) (FIM): 5 1=Demonstrate adherence to instructed precautions during ADL tasks. 2=Patient will verbalize/demonstrate understanding of assistive devices/ modifications for ADL. 3=Patient will improve strength/tolerance for activity to enable patient to perform ADL's. OT Usp Goals Usp Goals Time Frame: Jul 24, 2017 Eating (FIM): 6 Grooming(FIM): 6 Bathing(FIM): 5 Upper Body Dressing(FIM): 6 Lower Body Dressing(FIM): 5 Toileting(FIM): 6 Transfers (B,C,W/C) (FIM): 6 Toilet/Commode Transfer(FIM): 6 Shower Transfer(FIM): 5 Additional Goals: 1-Demonstrate ADL Tasks, 2-Verbalize Understanding, 3- ImproveStrength/[place] 1=Demonstrate adherence to instructed precautions during ADL tasks. 2=Patient will verbalize/demonstrate understanding of assistive devices/ modifications for ADL. 3=Patient will improve strength/tolerance for activity to enable patient to perform ADL's. OT Education/Plan Discharge Recommendations Plan/Recommendations: Continue POC Treatment Plan/Plan of Care Patient would benefit from OT for education, treatment and training to promote independence in ADL's, mobility, safety and/or upper extremity function for ADL' s. Plan of Care: ADL Retraining, Functional Mobility, UE Funct Exercise/Act Treatment Duration: Jul 24, 2017 Frequency: 5 times per week Estimated Hrs Per Day: .25 hour per day Agreement: Yes Rehab Potential: Good Time/GCodes Start Time: 11:10 Stop Time: 11:23 Total Time Billed (hr/min): 13 Billed Treatment Time 1 visit, ADL(13minutes) BUD GORMAN OT Jul 18, 2017 11:59
[2017-07-18 12:00] VITALS: BP 115/55
--- NOTE | 2017-07-18 13:35 | Physical Therapy Daily Note ---
PT Daily Note-Current Subjective Patient states, "I don't want to do anything. It hurts too bad. I'm not going to have the other knee done." PT educated patient on importance of exercise and ambulation to improve mobility and to prevent possible negative side effects. Patient agrees to exercises. Pain Numeric Pain Scale: 10-Worst Possible Pain Location: Left Location Body Site: Knee Pain Description: Acute Mental Status Patient Orientation: Normal For Age Attachments: Oxygen Transfers Functional [place] Measure 0=Not Assessed/NA 4=Minimal Assistance 1=Total Assistance 5=Supervision or Setup 2=Maximal Assistance 6=Modified [place] 3=Moderate Assistance 7=Complete IndependenceIRFPAI Quality Coding Scale 6 Independent with activity with or without an assistive device 5 Patient requires set up or clean up by helper. Patient completes activity by themselves 4 Supervision or touching assist (CGA). [place] provide cues , steadying assist 3 The helper provides less than half the effort to complete the activity 2 The helper provides more than half the effort to complete the activity 1 Dependent. The helper does all the effort to complete an activity 7 Patient refused to complete or attempt activity 9 The patient did not perform the activity before the current illness or injury 88 Not attempted due to Medical conditions or safety concerns Weight Bearing Right Lower Extremity: Right Weight Bearing/Tolerated Left Lower Extremity: Left Weight Bearing/Tolerated Exercises Supine Ex: Ankle pumps, Quad Set, Heel Slides, Short Arc Quads, Straight leg raise, Hip abd/add Supine Reps: 15 (2 sets bilaterally) Treatments CPM 0-[address] Assessment Patient requires much encouragement to participate with therapy. Patient does appear to self limit. PT Short Term Goals Short Term Goals Time Frame: Jul 23, 2017 Transfers (B,C,W/C) (FIM): 5 Gait (FIM): 2 Gait Distance Comment: 50' Gait Level of Assist: 5 Gait Assistive Device: FWW PT Plan Treatment/Plan Treatment Plan: Continue Plan of Care Treatment Plan: Bed Mobility, Education, Functional Activity [place], Functional Strength, Gait, Safety, Therapeutic Exercise, Transfers Treatment Duration: Jul 23, 2017 Frequency: 11 times per week Estimated Hrs Per Day: .25 hour per day Patient and/or Family Agrees t: Yes Time/GCodes Time In: 1305 Time Out: 1328 Total Billed Treatment Time: 23 Total Billed Treatment 1 visit EX x 2 23 min ZOYA HANNON PT Jul 18, 2017 13:35
[2017-07-18 16:15] VITALS: BP 110/59
[2017-07-18] MEDS: ATORVASTATIN 10 MG (LIPITOR) TABLET PO SCH (20:13)
[2017-07-18 20:15] VITALS: BP 115/58
[2017-07-18] MEDS ORDERED: PROMETHAZINE 25 MG (PHENERGAN) TAB PO PRN (20:45)
[2017-07-18] MEDS ORDERED: ONDANSETRON 4 MG (ZOFRAN) ORAL DISSOLVE TAB PO PRN (20:45)
[2017-07-19 00:05] VITALS: BP 97/55
[2017-07-19] MEDS: oxyCODONE/APAP 5/325MG (PERCOCET 5) TABLET PO PRN ×3 (02:07→09:42)
[2017-07-19] MEDS: BENZONATATE 100 MG (TESSALON) CAPSULE PO PRN ×2 (02:10→10:32)
[2017-07-19 04:00] VITALS: BP 98/56
[2017-07-19] MEDS: MULTIVIT W/MINERALS TAB (THERAGRAN M) PO SCH (06:25)
[2017-07-19] MEDS: PANTOPRAZOLE 40 MG (PROTONIX) TAB PO SCH (06:26)
[2017-07-19] MEDS: RT-ADVAIR HFA 115/21 MCG PER PUFF IH SCH (07:56)
[2017-07-19 08:00] VITALS: BP 104/57
--- NOTE | 2017-07-19 09:15 | Physical Therapy Daily Note ---
PT Daily Note-Current Subjective Patient in bed pre tx, agrees to PT, states she has pain of 10/10 and that it is always 10/10 no matter what mediation she has. Patient states she does not like the CPM and does not want it on. Appearance Patient in bed post tx with nurse call, phone, tray, polar care on, all needs met. Mental Status Patient Orientation: Person, Place, Situation Attachments: Oxygen 3L of O2 nasal canula Transfers Functional [place] Measure 0=Not Assessed/NA 4=Minimal Assistance 1=Total Assistance 5=Supervision or Setup 2=Maximal Assistance 6=Modified [place] 3=Moderate Assistance 7=Complete IndependenceIRFPAI Quality Coding Scale 6 Independent with activity with or without an assistive device 5 Patient requires set up or clean up by helper. Patient completes activity by themselves 4 Supervision or touching assist (CGA). [place] provide cues , steadying assist 3 The helper provides less than half the effort to complete the activity 2 The helper provides more than half the effort to complete the activity 1 Dependent. The helper does all the effort to complete an activity 7 Patient refused to complete or attempt activity 9 The patient did not perform the activity before the current illness or injury 88 Not attempted due to Medical conditions or safety concerns Transfers (B, C, W/C) (FIM): 5 Scootin Rollin Supine to/from Sit: 5 Sit to/from Stand: 5 Bed to/from Chair: 5 Patient has some difficulty getting her left leg out of bed but she can do so without assist. Weight Bearing Right Lower Extremity: Right Weight Bearing/Tolerated Left Lower Extremity: Left Weight Bearing/Tolerated Gait Training Gait (FIM): 5 Distance: 200' Gait Level of Assist: 5 Gait Persons Needed: 1 Gait Assistive Device: FWW Patient ambulates slowly, antalgic, flexed left knee. Exercises Supine Ex: Ankle pumps, Quad Set, Heel Slides, Short Arc Quads, Straight leg raise Supine Reps: 10 Treatments bed mobility, transfers, ambulation, functional strengthening, ROM Assessment Current Status: Fair Progress improving transfers and ambulation, left knee flexion 80 degrees, extension +10 degrees PT Short Term Goals Short Term Goals Time Frame: Jul 23, 2017 Transfers (B,C,W/C) (FIM): 5 Gait (FIM): 2 Gait Distance Comment: 50' Gait Level of Assist: 5 Gait Assistive Device: FWW PT Plan Problem List Problem List: Activity Tolerance, Functional Strength, Safety, Balance, Gait, Transfer, Bed Mobility, ROM Treatment/Plan Treatment Plan: Continue Plan of Care Treatment Plan: Bed Mobility, Education, Functional Activity [place], Functional Strength, Gait, Safety, Therapeutic Exercise, Transfers Treatment Duration: Jul 23, 2017 Frequency: 11 times per week Estimated Hrs Per Day: .25 hour per day Patient and/or Family Agrees t: Yes Safety Risks/Education Patient Education: Gait Training, Transfer Techniques, Correct Positioning, Safety Issues Teaching Recipient: Patient Teaching Methods: Demonstration, Discussion Response to Teaching: Reinforcement Needed Time/GCodes Time In: 0850 Time Out: 0908 Total Billed Treatment Time: 18 Total Billed Treatment 1 visit GT 18' ROX KOCH PT Jul 19, 2017 09:15
--- NOTE | 2017-07-19 09:40 | Progress Note-Standard ---
Standard Progress Note Progress Notes/Assess & Plan Date Seen by Provider: Jul 19, 2017 Time Seen by Provider: 09:38 Progress/Assessment & Plan post op check no complaints radiographs--HW well positioned. No fractures LLE--2 plus DP pulse with brisk cap refill. intact df and pf of toes and ankle. sensation intact throughout. s/p LTKA mobilize as able Final Diagnosis No complaints Vital Signs Date Time Temp Pulse Resp B/P (MAP) Pulse Ox O2 Delivery O2 Flow Rate FiO2 07/19/17 08:00 98.4 90 20 104/57 (73) 98 Nasal Cannula 2.00 07/19/17 07:57 92 Nasal Cannula 3.00 07/19/17 04:00 99.5 89 20 98/56 (70) 95 Nasal Cannula 2.00 07/19/17 00:05 99.1 95 20 97/55 (69) Nasal Cannula 2.00 07/18/17 20:15 99.2 91 20 115/58 (77) 95 Nasal Cannula 3.00 07/18/17 20:00 Nasal Cannula 07/18/17 19:38 96 Nasal Cannula 4.00 07/18/17 16:15 100.2 97 20 110/59 (76) 99 Nasal Cannula 3.00 07/18/17 12:00 100.1 94 18 115/55 (75) 100 Nasal Cannula 3.00 07/18/17 10:52 93 Nasal Cannula 4.00 I & O 07/19/17 07:00 Intake Total 2550 ml Output Total 1135 ml Balance 1415 ml LLE--no calf tenderness. Neg Yovani's. able to perform SLR wound benign s/p LTKA doing well or home ERIC BROOKE MD Jul 19, 2017 09:40
[2017-07-19] MEDS: SENNA W/DOCUSATE (SENOKOT S) TABLET PO SCH (09:41)
[2017-07-19] MEDS: DILTIAZEM 240 MG (CARDIZEM CD) CAP PO SCH (09:41)
[2017-07-19] MEDS: ENOXAPARIN 30 MG/0.3 ML (LOVENOX) SYR SC SCH (09:41)
[2017-07-19] MEDS: ASPIRIN E.C. 81 MG (ECOTRIN) TAB PO SCH (09:41)
[2017-07-19] MEDS: ARIPIPRAZOLE 10 MG (ABILIFY) TAB PO SCH (09:41)
--- NOTE | 2017-07-19 10:56 | DISCHARGE SUMMARY ---
DATE OF SERVICE: DIAGNOSES: 1. Left knee primary osteoarthritis. 2. Diabetes mellitus. 3. Cervical disk disease. 4. History of deep venous thrombosis. 5. Osteoporosis. 6. Atrial fibrillation. 7. Anxiety. 8. Cubital tunnel. 9. Lumbar stenosis. 10. Restless legs syndrome. PROCEDURE: Left total knee arthroplasty. SUMMARY: The patient is a 61-year-old female, who underwent a left total knee arthroplasty on the day of admission. Postoperatively, she did very well. At the time of discharge, her wound was clean and dry. She could perform a straight leg raise. She had active flexion to near 90 degrees. She had no calf tenderness. Negative Homans' sign. She is neurovascularly intact. Her hematocrit was stable. She was tolerating diet well and tolerating oral pain medication. Condition at discharge is good. Discharge diet is diabetic. Follow up is in 3 weeks. Home physical therapy has been arranged. Discharge medications are home medications and Percocet. Activities are weightbearing as tolerated with a walker. Job ID: [id number] DocumentID: [id number] Dictated Date: 07/19/2017 09:37:06 Terrazzo Installer Date: 07/19/2017 10:56:17 Dictated By: ERIC BROOKE MD
--- NOTE | 2017-07-19 21:17 | Progress Note (SOAP) ---
Subjective Subjective/Events-last exam Patient doing well this AM. Still having some nausea that is mildly controlled with zofran. Tolerating PO diet. BM this AM. Ambulated to chair and bathroom today with PT. Review of Systems Date Seen by Provider: Jul 18, 2017 Time Seen by Provider: 10:05 Pulmonary: No Dyspnea, No Cough Cardiovascular: No: Chest Pain, Palpitations Gastrointestinal: Nausea; No: Vomiting, Abdominal Pain Genitourinary: No Dysuria, No Frequency Objective Exam Last Set of Vital Signs Vital Signs Date Time Temp Pulse Resp B/P (MAP) Pulse Ox O2 Delivery O2 Flow Rate FiO2 07/19/17 09:30 Nasal Cannula 3.00 07/19/17 08:00 98.4 90 20 104/57 (73) 98 Capillary Refill : Less Than 3 Seconds I&O Intake and Output 07/19/17 00:00 Intake Total 5150 ml Output Total 2960 ml Balance 2190 ml Intake Oral 3950 ml IV Total 1200 ml Output Urine Total 2960 ml # Voids 2 # Bowel Movements 1 General: Alert, Oriented X3, Cooperative, No Acute Distress HEENT: Mucous Memb Moist/Achille Lungs: Clear to Auscultation, Normal Air Movement Heart: Regular Rate, No Murmurs Abdomen: Normal Bowel Sounds, Soft, No Tenderness, No Hepatosplenomegaly, No Masses Extremities: No Edema, No Tenderness/Swelling Assessment/Plan Assessment/Plan (1) Total knee replacement status Status: Acute Assessment & Plan: s/p Left total knee POD #2 Plan for home with HH with PT Qualifiers: Qualified Codes: Z96.652 - Presence of left artificial knee joint (2) Elevated LFTs Status: Acute Assessment & Plan: - Normal LFTs on 07/11/2017, patient does not have any h/o hepatitis, denies EtOH use - Will trend levels tomorrow, if they continue to be elevated patient needs US and Acute hepatitis panel (3) Osteoarthritis of left knee Status: Chronic Qualifiers: Qualified Codes: M17.12 - Unilateral primary osteoarthritis, left knee (4) CAD (coronary artery disease) Status: Chronic Assessment & Plan: - Continue home meds Qualifiers: Qualified Codes: I25.10 - Atherosclerotic heart disease of [place] coronary artery without angina pectoris (5) Non-insulin treated type 2 diabetes mellitus Status: Chronic Assessment & Plan: - A1c 06/2017 was 5.7, Continue to monitor blood sugars (6) Chronic atrial fibrillation Status: Chronic (7) COPD (chronic obstructive pulmonary disease) with chronic bronchitis Status: Chronic Assessment & Plan: - Home oxygen of 5, Will continue to titrate oxygen as tolerated (8) HLD (hyperlipidemia) Status: Chronic Assessment & Plan: - Continue home statin Qualifiers: Qualified Codes: E78.2 - Mixed hyperlipidemia Clinical Quality Measures DVT/VTE Risk/Contraindication: Risk Factor Score Per Nursin RFS Level Per Nursing on Admit: 4+=Very High JAMEL GALLEGO MD Jul 19, 2017 21:17
[2017-09-11] MEDS ORDERED: ACHD5005 PO (11:36)
== END 2017-07-19 11:30 | disposition home health service (06) | DRG 470 ==
LOC: 4TH 07:05 → SURG 07:06 → 4TH 10:30
PROVIDERS: ADMIT Orthopaedic Surgery; ATTEND Orthopaedic Surgery
PROC: 0SRD0J9 Replacement of Left Knee Joint with Synthetic Substitute, Cemented, Open Approach (ICD-10-PCS; principal; 2017-07-16 07:52)
DX: M17.12 Unilateral primary osteoarthritis, left knee (principal); I10 Essential (primary) hypertension; I25.10 Atherosclerotic heart disease of native coronary artery without angina pectoris; I48.2 Chronic atrial fibrillation; K50.90 Crohn's disease, unspecified, without complications; E78.2 Mixed hyperlipidemia; J44.9 Chronic obstructive pulmonary disease, unspecified; E11.42 Type 2 diabetes mellitus with diabetic polyneuropathy; G25.81 Restless legs syndrome; M81.0 Age-related osteoporosis without current pathological fracture; F41.9 Anxiety disorder, unspecified; G56.20 Lesion of ulnar nerve, unspecified upper limb; F32.9 Major depressive disorder, single episode, unspecified; M48.061 Spinal stenosis, lumbar region without neurogenic claudication; M50.90 Cervical disc disorder, unspecified, unspecified cervical region; M41.9 Scoliosis, unspecified; E78.5 Hyperlipidemia, unspecified; K21.9 Gastro-esophageal reflux disease without esophagitis; F17.210 Nicotine dependence, cigarettes, uncomplicated; H91.90 Unspecified hearing loss, unspecified ear; Z99.81 Dependence on supplemental oxygen; Z86.718 Personal history of other venous thrombosis and embolism; Z86.73 Personal history of transient ischemic attack (TIA), and cerebral infarction without residual deficits
CPT/HCPCS: 36415; 73560; 80053; 85014; 85018; 85025; 86850; 86900; 86901; 94640; 94664; 94760

== ENCOUNTER → 2017-07-21 | Outpatient (CLI) | payer MEDICARE, MEDICAID ==
[~2017-07-21] MED LIST changes: +OXYC-197 PO
[2017-07-21 12:13] LABS: BASOPHILS % (AUTO) 0 % (0-10); EOSINOPHILS % (AUTO) 0 % (0-10); HEMATOCRIT 32 % (35-52); HEMOGLOBIN 10.4 G/DL (11.5-16.0); LYMPHOCYTES % (AUTO) 11 % (12-44); MEAN CORPUSCULAR HEMOGLOBIN 29 PG (25-34); MEAN CORPUSCULAR HGB CONC 33 G/DL (32-36); MEAN CORPUSCULAR VOLUME 89 FL (80-99); MEAN PLATELET VOLUME 10.2 FL (7.4-10.4); MONOCYTES # (AUTO) 0.5 X 10^3 (0.0-1.0); MONOCYTES % (AUTO) 6 % (0-12); NEUTROPHILS # (AUTO) 7.4 X 10^3 (1.8-7.8); NEUTROPHILS % (AUTO) 83 % (42-75); PLATELET COUNT 347 10^3/uL (130-400); RED BLOOD COUNT 3.54 10^6/uL (4.35-5.85); RED CELL DISTRIBUTION WIDTH 15.1 % (10.0-14.5)
[2017-07-21 12:41] LABS: BUN/CREATININE RATIO 15; CALCIUM 9.7 MG/DL (8.5-10.1); CARBON DIOXIDE 25 MMOL/L (21-32); CHLORIDE 105 MMOL/L (98-107); CREATININE SERUM 0.55 MG/DL (0.60-1.30); GFR ESTIMATED > 60; GLUCOSE 133 MG/DL (70-105); POTASSIUM 4.1 MMOL/L (3.6-5.0); SODIUM 141 MMOL/L (135-145)
== END ==
LOC: HH 08:00
PROVIDERS: ATTEND Family Medicine
DX: E11.9 Type 2 diabetes mellitus without complications (principal); I48.91 Unspecified atrial fibrillation; E78.2 Mixed hyperlipidemia; I25.10 Atherosclerotic heart disease of native coronary artery without angina pectoris
CPT/HCPCS: 80048; 85025

== ENCOUNTER 2017-07-22 12:45 | Outpatient (RCR) | payer MEDICARE, MEDICAID ==
[2017-04-25 13:10] VITALS: BP 94/67
[2017-04-25 13:33] VITALS: BP 94/67
[2017-04-25] MEDS: OMALIZUMAB SUB-Q 150 MG (XOLAIR) VIAL SQ SCH (13:33)
[2017-05-26] MEDS: OMALIZUMAB SUB-Q 150 MG (XOLAIR) VIAL SQ SCH (13:02)
[2017-05-26 13:05] VITALS: BP 116/81
[2017-06-24] MEDS: OMALIZUMAB SUB-Q 150 MG (XOLAIR) VIAL SQ SCH (13:24)
[2017-06-24 13:25] VITALS: BP 116/66
[~2017-07-22] VITALS: Ht 162.6 cm; Wt 69.9 kg
[2017-07-22] MEDS: OMALIZUMAB SUB-Q 150 MG (XOLAIR) VIAL SQ SCH (13:25)
[2017-07-22 13:30] VITALS: BP 117/71
[2017-09-11] MEDS ORDERED: ACHD5005 PO (11:36)
== END 2017-07-24 | disposition home or self-care (01) ==
LOC: SDC 12:45
PROVIDERS: ATTEND Internal Medicine Pulmonary Disease
DX: J45.50 Severe persistent asthma, uncomplicated (principal)
CPT/HCPCS: 96372

== ENCOUNTER → 2017-08-25 | Outpatient (CLI) | payer MEDICARE, MEDICAID ==
[~2017-08-25] MED LIST changes: +CODE118S2 PO; -CODE118S4 PO; -TRAZ-189 PO; +TRAZ-28 PO
[2017-08-25 11:11] LABS: BASOPHILS # (AUTO) 0.1 10^3/uL (0.0-0.1); BASOPHILS % (AUTO) 1 % (0-10); EOSINOPHILS # (AUTO) 0.4 10^3/uL (0.0-0.3); EOSINOPHILS % (AUTO) 4 % (0-10); HEMATOCRIT 40 % (35-52); HEMOGLOBIN 12.8 G/DL (11.5-16.0); LYMPHOCYTES # (AUTO) 2.5 X 10^3 (1.0-4.0); LYMPHOCYTES % (AUTO) 30 % (12-44); MEAN CORPUSCULAR HEMOGLOBIN 29 PG (25-34); MEAN CORPUSCULAR HGB CONC 32 G/DL (32-36); MEAN CORPUSCULAR VOLUME 89 FL (80-99); MONOCYTES # (AUTO) 0.9 X 10^3 (0.0-1.0); MONOCYTES % (AUTO) 11 % (0-12); NEUTROPHILS # (AUTO) 4.5 X 10^3 (1.8-7.8); NEUTROPHILS % (AUTO) 54 % (42-75); PLATELET COUNT 315 10^3/uL (130-400); RED BLOOD COUNT 4.49 10^6/uL (4.35-5.85); RED CELL DISTRIBUTION WIDTH 14.6 % (10.0-14.5); WHITE BLOOD COUNT 8.3 10^3/uL (4.3-11.0)
--- NOTE | 2017-08-25 11:28 | Diagnostic Imaging Report ---
INDICATION: Asthma and bronchitis. TIME OF EXAMINATION: 10:56 AM. COMPARISON: 07/11/2017. FINDINGS: There has been improved aeration to both bases since the prior exam. No significant infiltrate or atelectasis is seen. No effusion or pneumothorax is detected. There are postop changes in the lower cervical spine. IMPRESSION: Improved aeration to both lungs when compared to the examination from 07/11/2017. Dictated by: Dictated on workstation # [id number]
== END ==
LOC: RAD 10:25
PROVIDERS: ATTEND Nurse Practitioner Family
DX: J45.909 Unspecified asthma, uncomplicated (principal)
CPT/HCPCS: 36415; 71046; 85025

== ENCOUNTER → 2017-08-27 | Outpatient (CLI) | payer MEDICARE, MEDICAID ==
[~2017-08-27] MED LIST changes: +BARIUM SUSPENSION 105% (LIQUID POLIBAR PLUS) 240 ML/DOSE PO ONE; +BARIUM SUSPENSION 60% (LIQUID EZ PAQUE) 240 ML DOSE PO ONE
--- NOTE | 2017-08-27 10:25 | Diagnostic Imaging Report ---
Indication: Dysphasia and reflux. The patient ingested effervescent crystals as well as thin and thick barium and imaging of the esophagus, stomach and proximal small bowel is performed. A total of 1 minute and 23 seconds of fluoroscopy was utilized. The preliminary radiograph is unremarkable. The esophagus has a fairly smooth contour. No mass is identified. No esophageal stricture was detected. No gastroesophageal reflux was demonstrated on today's study. No hiatal hernia is detected. There is free flow of contrast into the stomach. Stomach has normal configuration. No mass or ulceration is identified. The duodenal bulb is without deformity. Later images do show mild gastroesophageal reflux. The proximal small bowel loops are unremarkable. Impression: Mild gastroesophageal reflux. Study is otherwise unremarkable. Dictated by: Dictated on workstation # [id number]
== END ==
LOC: RAD 08:43
PROVIDERS: ATTEND Surgery
DX: K21.9 Gastro-esophageal reflux disease without esophagitis (principal)
CPT/HCPCS: 74241

== ENCOUNTER → 2017-09-09 | Outpatient (CLI) | payer MEDICARE, MEDICAID ==
[~2017-09-09] MED LIST changes: -BARIUM SUSPENSION 105% (LIQUID POLIBAR PLUS) 240 ML/DOSE PO ONE; -BARIUM SUSPENSION 60% (LIQUID EZ PAQUE) 240 ML DOSE PO ONE
--- NOTE | 2017-09-09 14:32 | Diagnostic Imaging Report ---
Indication: Dysphagia. This study was performed following administration of 1 mCi of 99m technetium sulfur colloid in egg. Normally, 50% of the radiotracer clears from the stomach by 60 minutes plus or -60 minutes. On this exam at 121 minutes there was still approximately 63% of the radiotracer still present within the stomach. This would indicate that there is delay in gastric emptying. The reason for the delay is not certain. Whether this is secondary to gastroparesis or to a partial gastric outlet obstruction is unclear. If further imaging is desired, then an upper GI exam would recommended. Endoscopy should also be considered. Impression: There is delay in gastric emptying. The reason for this is not certain. Recommendations as above. Dictated by: Dictated on workstation # [id number]
== END ==
LOC: CARD 08:05
PROVIDERS: ATTEND Surgery
DX: R13.10 Dysphagia, unspecified (principal)
CPT/HCPCS: 78264

== ENCOUNTER 2017-09-10 05:32 | Outpatient (CLI) | payer MEDICARE, MEDICAID ==
[~2017-09-10] VITALS: Ht 162.6 cm; Wt 69.9 kg
[2017-09-11] MEDS ORDERED: ACHD5005 PO (11:36)
== END 2017-09-10 10:15 ==
LOC: PREOP 05:32
PROVIDERS: ATTEND Surgery
DX: Z01.818 Encounter for other preprocedural examination (principal)

== ENCOUNTER 2017-09-11 07:50 | Day surgery (SDC) | payer MEDICARE, MEDICAID ==
[~2017-09-11] VITALS: Ht 162.6 cm; Wt 69.9 kg
--- OUTSIDE RECORDS SUMMARY | 2017-09-11 07:56 | XMS REPORT | Clinical Summary ---
Author Author [facility] Organization [facility] Address Unknown Phone Unavailable Care Team Providers Care Voip Network Technician Name Role Phone Apoorva Shane MD [...] in the Health Information Management department at [phone] for further assistance in locating additional records.[facility] Allergies Active Allergy Reactions Severity Noted Date Comments Ibuprofen RASH Medium 06/09/2009 Kzxms-Arwkj-Auigsep-Pramo RASH Medium 01/23/2017 xine Current Medications Prescription [...] 18 tabletIndications: chew Urinary incontinence, unspecified type cephalexin (KEFLEX) 250 Take 1 capsule by mouth 2 capsule 0 09/11/19 Active mg capsule twice daily. 18 trimethoprim/sulfamethoxa Take 1 tablet by mouth 2 tablet 0 09/11/19 Active zole (BACTRIM DS) 160/800 twice daily. Begin taking 18 mg tablet the morning of Urodyanamics MYRBETRIQ 50 mg TAKE ONE TABLET BY MOUTH 30 tablet 2 07/23/19 Discontin tabletIndications: DAILY FOR URINARY URGE 18 18 ued Urinary incontinence in INCONTINENCE female Active Problems Problem Noted Date Urinary obstruction [...] Encounters Date Type Specialty Care Team Description 09/10/2017 Office Visit Urology Balbina Garcia MD Hx of multiple sclerosis (Primary Dx) 09/05/2017 Telephone Urology Balbina Garcia MD Medication Question 08/26/2017 Telephone Uro Commission Specialist Rain Tariq MD General Question 07/10/2017 Telephone Urology Balbina Garcia MD General Question 07/09/2017 Office Visit Urology Balbina Garcia MD Voiding dysfunction (Primary Dx); Yeast dermatitis; Urinary obstruction 07/09/2017 Telephone Urology Balbina Garcia MD General Question 07/08/2017 Telephone Urology Balbina Garcia MD Other 07/07/2017 Telephone Urology Balbina Garcia MD Medication Follow- up 07/04/2017 Telephone UrologBalbina Shoemaker MD General Question 07/03/2017 Telephone Urology Balbina Garcia MD Medication Question 07/01/2017 Refill Uro Commission Specialist Rain Tariq MD Urinary incontinence in female 06/16/2017 Telephone UrologBalbina Shoemaker MD General Question 06/15/2017 Pharmacy Visit 06/13/2017 Hospital Balbina Garcia MD Urinary obstruction Encounter 06/13/2017 Telephone Urology Balbina Garcia MD Medication Question 06/13/2017 Pharmacy Visit 06/13/2017 Procedure Pass 06/13/2017 Surgery Balbina Garcia MD URETHROLYSIS, INCISION OF URETHRAL SLING, CYSTOSCOPY 06/04/2017 Anesthesia Sandra Lakhani, STORE ASSOCIATE Event from Last 3 Months Family History Medical [...] Tobacco Use Types Packs/Day Years Used Date Current Every Day Smoker Cigarettes 0.25 46 Smokeless Tobacco: Never Used Tobacco Cessation: Ready to Quit: No; Counseling Given: Yes Alcohol Use Drinks/Week oz/Week Comments No 0 Standard 0.0 drinks or equivalent Sex Assigned at Date Recorded Not on file Last Filed Vital Signs Vital Sign Reading Time Taken Blood Pressure 95/60 09/10/2017 9:03 AM CDT Pulse 60 09/10/2017 9:03 AM CDT Temperature 36.4 C (97.5 F) 06/13/2017 10:15 AM [employer] TECHNICIAN Respiratory Rate 20 10/25/2015 10:12 AM CDT Oxygen Saturation 94% 06/13/2017 10:15 AM [employer] TECHNICIAN Inhaled Oxygen - - Concentration Weight 69.2 kg (152 lb 9.6 oz) 09/10/2017 9:03 AM CDT Height 160 cm (5' 3") 09/10/2017 9:03 AM CDT Body Mass Index 27.03 09/10/2017 9:03 AM CDT Plan of Treatment Health Maintenance Due Date Last Done Comments HEPATITIS C SCREENING 1953 PHYSICAL (COMPREHENSIVE) 1960 EXAM PERTUSSIS VACCINE 1964 HIV SCREENING 1968 TETANUS VACCINE 1970 DILATED EYE EXAM 07/21/1971 FOOT EXAM 07/21/1971 HBA1C 07/21/1971 MICROALBUMIN 07/21/1971 PNEUMONIA VACCINE (DM) 07/21/1971 CERVICAL CANCER SCREENING 07/21/1983 BREAST CANCER SCREENING 1993 COLORECTAL CANCER 07/21/2003 SCREENING SHINGLES VACCINE 2013 INFLUENZA VACCINE 01/05/2018 06/21/2013 Procedures Procedure Name Priority Date/Time Associated Diagnosis Comments ECG-SCAN 06/30/2017 Results for this 3:37 PM CDT procedure are in the results section. ECG-SCAN 06/16/2017 Results for this 11:54 AM CDT procedure are in the results section. ECG-SCAN 06/16/2017 Results for this 11:54 AM CDT procedure are in the results section. URETHROLYSIS, INCISION OF 06/13/2017 Urinary obstruction URETHRAL SLING, 7:15 AM [employer] TECHNICIAN CYSTOSCOPY from Last 3 Months Results * POC URINE DIPSTICK MANUAL READ (07/09/2017) Component Value Ref Range Urine Glucose POC neg] Urine Bilirubin POC neg Urine Ketone POC neg Urine Specific [place] 1.015 POC Urine Blood POC neg Urine [...] MG/DL Specimen Performing Laboratory MAIN LAB [address] [place] [address] * SURGICAL PATHOLOGY (06/13/2017 9:04 AM) Component Value Ref Range PATHOLOGY REPORT [facility] [email or web address] Department of Pathology and Laboratory Medicine [address] [place] [address] Surgical Pathology Office:[phone]:[phone] SURGICAL PATHOLOGY REPORT NAME: NARA HUIZAR JO SURG PATH #: [id number] MR #: [id number] SPECIMEN CLASS: SR BILLING #: [id number] ALT ID #:LOCATION: [facility] DATE OF PROCEDURE: 06/13/2017 AGE:61 SEX: F [...] fibers. The soft tissue is removed and customer solutions representative sections are submitted in cassette A1. (eef) 06/13/2017 Specimen Performing Laboratory [facility] RESULTS from Last 3 Months
--- OUTSIDE RECORDS SUMMARY | 2017-09-11 07:56 | XMS REPORT | Encounter Summary ---
Author Author [facility] Organization [facility] Address Unknown Phone Unavailable Care Team Providers Care Directional Survey Drafter Name Role Phone Apoorva Shane MD Unavailable Edgardo Torres MD Unavailable Amanda Bhandari Unavailable Montana Villasenor MD Unavailable Gilles Ness MD Unavailable Rain Tariq MD Unavailable Harika Hsu MD Unavailable Nayana Mccarty RN Unavailable Unavailable Symone Lee Unavailable Unavailable Sukumar Mondragon APRN PCP Reason for Visit * Reason Comments Medication Question Encounter Details Date Type Department Care Team Description 09/05/2017 Telephone [facility] Balbina Garcia MD Medication Question Physicians - Urology [address] [facility] [address] FLOOR POD [address] [facility] [place] [address] OFFICE BLDG [phone] [place] [address] Social History Tobacco Use Types Packs/Day Years Used Date Former Smoker Cigarettes 0.25 46 Smokeless Tobacco: Never Used Alcohol Use Drinks/Week oz/Week Comments No 0 Standard 0.0 drinks or equivalent Sex Assigned at Date Recorded Not on file as of this encounter Miscellaneous Notes * Telephone Encounter - Emilia Bello LPN - 09/05/2017 3:31 PM [place] with [facility] [phone] ext [phone] calling with medication questions. She is doing medication reconciliation for patient and has her taking Oxybutynin, Myrbetirq & Tropsium. She is calling for clarification if patient should be taking all of these medications. Called and left VM message that patient should only be taking Oxybutynin at this time. She will call if further questions. in this encounter Plan of Treatment Not on fileas of this encounter Visit Diagnoses Not on filein this encounter
--- OUTSIDE RECORDS SUMMARY | 2017-09-11 07:56 | XMS REPORT | Encounter Summary ---
Author Author [facility] Organization [facility] Address Unknown Phone Unavailable Care Team Providers Care Rn Or Lvn Name Role Phone Apoorva Shane MD Unavailable Edgardo Torres MD Unavailable Amanda Bhandari Unavailable Montana Villasenor MD Unavailable Gilles Ness MD Unavailable Rain Tariq MD Unavailable Harika Hsu MD Unavailable Nayana Mccarty RN Unavailable Unavailable Symone Lee Unavailable Unavailable Sukumar Mondragon APRN PCP Reason for Visit * Reason Comments General Question Encounter Details Date Type Department Care Team Description 08/26/2017 Telephone [facility] Rain Tariq MD General Question Physicians - OBGYN [address] [place] [address] [place] [address] OFFICE BLDG [phone] [place] [address] Social History Tobacco Use Types Packs/Day Years Used Date Former Smoker Cigarettes 0.25 46 Smokeless Tobacco: Never Used Alcohol Use Drinks/Week oz/Week Comments No 0 Standard 0.0 drinks or equivalent Sex Assigned at Date Recorded Not on file as of this encounter Miscellaneous Notes * Telephone Encounter - Corina Barillas LPN - 08/26/2017 3:25 PM CDT Patient left a voicemail stating she can't remember if she should continue on Myrbetriq. Call returned to notify of message receipt, informed that medication is for urge incontinence and may continue if she feels it is helping, recently filled 07/22. She verbalized understanding and had no further questions. Routing to Joleen ALY to review. Corina Barillas LPN in this encounter Plan of Treatment Not on fileas of this encounter Visit Diagnoses Not on filein this encounter
--- OUTSIDE RECORDS SUMMARY | 2017-09-11 07:56 | XMS REPORT | Encounter Summary ---
Author Author [facility] Organization [facility] Address Unknown Phone Unavailable Care Team Providers Care Legal Librarian Name Role Phone Apoorva Shane MD Unavailable [...] To Procedures Contact Contact New Request Specialty Neurology Diagnoses Todd Garcia Neurology Cl Services Hx of prieto Mortensen MD [facility] ON Required sclerosis [address] [place] [phone] Phone: Scheduling Instructions Contact Phone Numbers for each area if questions arise: General: [phone] Epilepsy: Multiple Sclerosis: Parkinson's: [phone] [facility]: [phone] Stroke & Neuromuscular: [phone] [employer]: [phone] Encounter Details Date Type Department Care Team Description 09/10/2017 Office Visit [facility] Balbina Garcia MD of multiple sclerosis Physicians - Urology [address] [facility] (Primary Dx) 2ND FLOOR POD [address] [place] [address] [address] [phone] [place] [address] Social History Tobacco Use Types [...] Pulse 60 09/10/2017 9:03 AM CDT Temperature - - Respiratory Rate - - Oxygen Saturation - - Inhaled Oxygen - - Concentration Weight 69.2 kg (152 lb 9.6 oz) 09/10/2017 9:03 AM CDT Height 160 cm (5' 3") 09/10/2017 9:03 AM CDT Body Mass Index 27.03 09/10/2017 9:03 AM CDT in this encounter Instructions * Patient Instructions - Joleen Hsu LPN - 09/10/2017 9:15 AM CDT About Urodynamics: Urodynamics is a set of tests that measure bladder function (including storage and emptying) allowing physicians to understand and treat patients with bladder problems such as urinary leakage (incontinence) or bladder emptying (voiding). The examination is performed by nurses who have been specially trained in urodynamic testing. During a Urodynamics Study The study may be done in your doctors office, a clinic, or a hospital. The study may take up to an hour or more. This depends on which tests your doctor performs. The tests are generally painless. You wont need sedating medication. Tests That May Be Done Uroflowmetry. This measures the amount and speed of urine you void from your bladder. You urinate into a funnel. Its attached to a computer that records your urine flow over time. The amount of urine left in your bladder after you void may also be measured right after this test. Cystometry. This test evaluates how much your bladder can hold. It also measures how strong your bladder muscle is and how well the signals work that tell you when your bladder is full. Your health care provider fills your bladder with sterile water or saline solution, through a catheter. Your doctor will instruct you to report any sensations you feel. Mention if theyre similar to symptoms youve felt at home. Your doctor may ask you to cough, stand and walk, or bear down during this test. Electromyogram. This helps evaluate the muscle contractions that control urination, such as sphincter muscle contractions. Your health care provider may place electrode patches or wires near your rectum or urethra to make the recording. He or she may ask you to try to tighten or relax your sphincter muscles during this test. Pressure flow study. This test measures your detrusor, urethral, and abdominal pressures. Detrusor is the muscle surrounding the bladder ricketts that relaxes to allow your bladder to fill, and and contracts to squeeze out urine. A Pressure Flow Study is often performed after cystometry. Youre asked to urinate while a probe in your urethra measures pressures. At the beginning of the test, you will be asked to urinate into a machine that measures your urine flow rate, so should arrive with a moderately full bladder. We will test your urine for signs of infection. If an infection is present the test will need to be rescheduled. Please, contact our office before your appointment if you are having urinary tract infection symptoms. For the procedure, a small catheter is placed into your bladder and one into the rectum for pressure measurements. The catheters are taped and connected to tubing that allows sterile water to be slowly infused into your bladder. After filling is complete, you will be asked to empty your bladder completely. Instructions for the day of your urodynamics: 1. Report to the session with a moderately full bladder. Try not to urinate at least one hour before arriving to the clinic. If you have been diagnosed with Interstitial Cystitis, Neurogenic Bladder, Urinary Retention, or if you are unable to urinate, please empty your bladder before reporting for your procedure. 2. Wear comfortable clothing. 3. Eat and drink normally for the exam. Do not fast. 4. Expect a minimum of one hour for the examination. 5. Discontinue all bladder relaxant medication three (3) days prior to examination, unless specifically advised to continue all medications. Medications to be avoided are: Bentyl, Ditropan, Detrol, Enablex, Gelnique, Hyoscamine, Levbid, Levsin, Lesinex, Oxybutynin, Oxytrol, Oxytrol Patch, Pyridium, Pyridium Plus, Sanctura, Toviaz, Urecholine, Urelle, Urospas, and Vesicare. If you are on medications for prostate enlargement such as Cardura, Doxazosin, Flomax, Tamsulosin, Hytrin, Terazosin, Rapaflo, Silodosin, please contact the office for further instructions. If you have questions regarding your specific medication, contact your doctors office. Getting Your Results After the study, youll get dressed and return to the consultation room. Test results may be ready soon after the study is finished. Or, you may return to your doctors office in a few days for your results. Your doctor can talk with you about the study report and your options. If you have a known urinary tract infection, please reschedule your appointment until treatment is completed. Contact your doctors office for further instructions. Thank you for choosing the [facility] Physicians Department of Urology for your health care needs. If you must cancel your Urodynamic Study appointment, please provide 72 hours [ three (3) business days] notice which allows us to provide this important service to another patient. in this encounter Plan of Treatment Name Priority Associated Diagnoses Order Schedule AMB REFERRAL TO NEUROLOGY Routine Hx of multiple sclerosis Ordered: 09/2017 as of this encounter Visit Diagnoses Diagnosis Hx of multiple sclerosis - Primary Personal history of other disorders of nervous system and sense organs
--- OUTSIDE RECORDS SUMMARY | 2017-09-11 07:57 | XMS REPORT | Encounter Summary ---
Author Author [facility] Organization [facility] Address Unknown Phone Unavailable Care Team Providers Care Buffer Machine Name Role Phone Apoorva Shane MD Unavailable Edgardo Torres MD Unavailable Amanda Bhandari Unavailable Montana Villasenor MD Unavailable Gilles Ness MD Unavailable Rain Tariq MD Unavailable Harika Hsu MD Unavailable Nayana Mccarty RN Unavailable Unavailable Symone Lee Unavailable Unavailable Sukumar Mondragon APRN PCP Reason for Visit * Reason Comments General Question Encounter Details Date Type Department Care Team Description 06/16/2017 Telephone [facility] Balbina Garcia MD General Question Physicians - Urology [address] [facility] [address] FLOOR [address] [facility] [address] OFFICE BLDG [phone] [place] [address] Social History Tobacco Use Types [...]
--- OUTSIDE RECORDS SUMMARY | 2017-09-11 07:57 | XMS REPORT | Encounter Summary ---
Author Author [facility] Organization [facility] Address Unknown Phone Unavailable Care Team Providers Care Weight Engineer Name Role Phone Apoorva Shane MD Unavailable Edgardo Torres MD Unavailable Amanda Bhandari Unavailable Montana Villasenor MD Unavailable Gilles Ness MD Unavailable Rain Tariq MD Unavailable Harika Hsu MD Unavailable Nayana Mccarty RN Unavailable Unavailable Symone Lee Unavailable Unavailable Sukumar Mondragon APRN PCP Reason for Visit * Reason Comments General Question Encounter Details Date Type Department Care Team Description 07/04/2017 Telephone [facility] Balbina Garcia MD General Question Physicians - Urology [address] [facility] 2ND FLOOR POD A [place] 3016 [address] [facility] [place] [address] OFFICE BLDG [phone] [place] [address] Social History Tobacco Use Types [...]
--- OUTSIDE RECORDS SUMMARY | 2017-09-11 07:57 | XMS REPORT | Encounter Summary ---
Author Author [facility] Organization [facility] Address Unknown Phone Unavailable Care Team Providers Care Purchasing Associate Name Role Phone Apoorva Shane MD Unavailable Edgardo Torres MD Unavailable mAanda Bhandari Unavailable Montana Villasenor MD Unavailable Gilles Ness MD Unavailable Rain Tariq MD Unavailable Harika Hsu MD Unavailable Nayana Mccarty RN Unavailable Unavailable Symone Lee Unavailable Unavailable Sukumar Mondragon APRN PCP Reason for Visit * Reason Comments General Question Encounter Details Date Type Department Care Team Description 07/09/2017 Telephone [facility] Balbina Garcia MD General Question Physicians - Urology [address] [facility] 2ND FLOOR POD A MS 3016 [address] [facility] [place] [address] OFFICE BLDG [phone] [place] [address] Social History Tobacco Use Types [...] medication. Forwarding to Dr. Sexton for f/u [phone] in this encounter Plan of Treatment Not on fileas of this encounter Visit Diagnoses Not on filein this encounter
--- OUTSIDE RECORDS SUMMARY | 2017-09-11 07:57 | XMS REPORT | Encounter Summary ---
Author Author [facility] Organization [facility] Address Unknown Phone Unavailable Care Team Providers Care Hydraulic Blocker Name Role Phone Apoorva Shane MD Unavailable Edgardo Torres MD Unavailable Amanda Bhandari Unavailable Montana Villasenor MD Unavailable Gilles Ness MD Unavailable Rain Tariq MD Unavailable Harika Hsu MD Unavailable Nayana Mccarty RN Unavailable Unavailable Symone Lee Unavailable Unavailable Sukumar Mondragon APRN PCP Reason for Visit * Reason Comments Medication Refill Encounter Details Date Type Department Care Team Description 07/01/2017 Refill [facility] Rain Tariq MD Urinary incontinence in Physicians - OBGYN [address] [facility] 5TH FLOOR POD C [place] [address]27 [address] [facility] [place] [address] OFFICE BLDG [phone] [place] [address] Social History Tobacco Use Types [...]
--- OUTSIDE RECORDS SUMMARY | 2017-09-11 07:57 | XMS REPORT | Encounter Summary ---
Author Author [facility] Address Unknown Phone Unavailable Care Team Providers Care Hvac Design Engineer Name Role Phone Apoorva Shane MD Unavailable Edgardo Torres MD Unavailable Amanda Bhandari Unavailable Montana Villasenor MD Unavailable Gilles Ness MD Unavailable Rain Tariq MD Unavailable Harika Hsu MD Unavailable Nayana Mccarty RN Unavailable Unavailable Symone Lee Unavailable Unavailable Sukumar Mondragon APRN PCP Reason for Visit * Reason Comments Other Encounter Details Date Type Department Care Team Description 07/08/2017 Telephone [facility] Balbina Garcia MD Other Physicians - Urology [address] [facility] 2ND FLOOR POD A MS 3016 [address] [facility] [place] [address] OFFICE BLDG [phone] [place] [address] Social History Tobacco Use Types [...]
--- OUTSIDE RECORDS SUMMARY | 2017-09-11 07:57 | XMS REPORT | Encounter Summary ---
Author Author [facility] Organization [facility] Address Unknown Phone Unavailable Care Team Providers Care Livestock Sales Representative Name Role Phone Apoorva Shane MD Unavailable Edgardo Torres MD Unavailable Amanda Bhandari Unavailable Montana Villasenor MD Unavailable Gilles Ness MD Unavailable Rain Tariq MD Unavailable Harika Hsu MD Unavailable Nayana Mccarty RN Unavailable Unavailable Symone Lee Unavailable Unavailable Sukumar Mondragon APRN PCP Reason for Visit * Reason Comments Urinary Incontinence Encounter Details Date Type Department Care Team Description 07/09/[address] [facility] Balbina Garcia MD Voiding dysfunction Physicians - Urology [address] (Primary Dx); 2ND FLOOR POD A MS 3016 Yeast dermatitis; [address] [place] [address] Urinary obstruction OFFICE BLDG [phone] [place] [address] Social History Tobacco Use Types [...] neg Urine Ketone POC neg Urine Specific Momence 1.015 POC Urine Blood POC neg Urine [...]
--- OUTSIDE RECORDS SUMMARY | 2017-09-11 07:57 | XMS REPORT | Encounter Summary ---
Author Author [facility] Organization [facility] Address Unknown Phone Unavailable Care Team Providers Care Seamless Tube Drawer Name Role Phone Apoorva Shane MD Unavailable Edgardo Torres MD Unavailable Amanda Bhandari Unavailable Montana Villasenor MD Unavailable Gilles Ness MD Unavailable Rain Tariq MD Unavailable Harika Hsu MD Unavailable Nayana Mccarty RN Unavailable Unavailable Symone Lee Unavailable Unavailable Sukumar Mondragon APRN PCP Reason for Visit * Reason Comments Medication Question Encounter Details Date Type Department Care Team Description 06/13/2017 Telephone [facility] Balbina Garcia MD Medication Question Physicians - Urology [address] [facility] 2ND FLOOR POD A MS 3016 [address] [place] [address] [address] [phone] [place] [address] Social History Tobacco Use Types Packs/Day Years Used Date Former Smoker Cigarettes 0.25 46 Smokeless Tobacco: Never Used Alcohol Use Drinks/Week oz/Week Comments No 0 Standard 0.0 drinks or equivalent Sex Assigned at Date Recorded Not on file as of this encounter Miscellaneous Notes * Telephone Encounter - Pawel Dacosta MA - 06/13/2017 2:21 PM OFFICE INSPECTOR Patient called in saying that she was discharged and is now home from surgery and saw she has two new medications on her AVS. She did not know whether or not she was to be picking those up from her pharmacy or not. I spoke with sophie who sent them to [facility] in [place] for her. She verbalized understanding and thanked me for my call. in this encounter Plan of Treatment Not on fileas of this encounter Visit Diagnoses Not on filein this encounter
--- OUTSIDE RECORDS SUMMARY | 2017-09-11 07:57 | XMS REPORT | Encounter Summary ---
Author Author [facility] Organization [facility] Address Unknown Phone Unavailable Care Team Providers Care Manager Of Engineering Name Role Phone Apoorva Shane MD Unavailable Edgardo Torres MD Unavailable Amanda Bhandari Unavailable Montana Villasenor MD Unavailable Gilles Ness MD Unavailable Rain Tariq MD Unavailable Harika Hsu MD Unavailable Nayana Mccarty RN Unavailable Unavailable Symone Lee Unavailable Unavailable Sukumar Mondragon APRN PCP Encounter Details Date Type Department Care Team Description 06/13/2017 Pharmacy Visit [facility] [address] [place] [address] Social History Tobacco Use Types [...]
--- OUTSIDE RECORDS SUMMARY | 2017-09-11 07:57 | XMS REPORT | Encounter Summary ---
Author Author [facility] Organization [facility] Address Unknown Phone Unavailable Care Team Providers Care Bag Maker Name Role Phone Apoorva Shane MD Unavailable Edgardo Torres MD Unavailable Amanda Bhandari Unavailable Montana Villasenor MD Unavailable Gilles Ness MD Unavailable Rain Tariq MD Unavailable Harika Hsu MD Unavailable Nayana Mccarty RN Unavailable Unavailable Symone Lee Unavailable Unavailable Sukumar Mondragon APRN PCP Encounter Details Date Type Department Care Team Description 06/15/2017 Pharmacy Visit [facility] [address] [place] [address] Social History Tobacco Use Types [...]
--- OUTSIDE RECORDS SUMMARY | 2017-09-11 07:57 | XMS REPORT | Encounter Summary ---
Author Author [facility] Organization [facility] Address Unknown Phone Unavailable Care Team Providers Care Buckle Stapler Name Role Phone Apoorva Shane MD Unavailable Edgardo Torres MD Unavailable Amanda Bhandari Unavailable Montana Villasenor MD Unavailable Gilles Ness MD Unavailable Rain Tariq MD Unavailable Harika Hsu MD Unavailable Nayana Mccarty RN Unavailable Unavailable Symone Lee Unavailable Unavailable Sukumar Mondragon APRN PCP Reason for Visit * Reason Comments General Question Encounter Details Date Type Department Care Team Description 07/10/2017 Telephone [facility] Balbina Garcia MD General Question Physicians - Urology [address] [facility] 2ND FLOOR POD A MS [address]016 [address] [facility] [place] [address] OFFICE BLDG [phone] [place] [address] Social History Tobacco Use Types [...]
--- OUTSIDE RECORDS SUMMARY | 2017-09-11 07:57 | XMS REPORT | Encounter Summary ---
Author Author [facility] Organization [facility] Address Unknown Phone Unavailable Care Team Providers Care Carbon Plant Grinder Name Role Phone Apoorva Shane MD Unavailable Edgardo Torres MD Unavailable Amanda Bhandari Unavailable Montana Villasenor MD Unavailable Gilles Ness MD Unavailable Rain Tariq MD Unavailable Harika Hsu MD Unavailable Nayana Mccarty RN Unavailable Unavailable Symone Lee Unavailable Unavailable Sukumar Mondragon APRN PCP Reason for Visit * Reason Comments Medication Question Encounter Details Date Type Department Care Team Description 07/03/2017 Telephone [facility] Balbina Garcia MD Medication Question Physicians - Urology [address] [facility] 2ND FLOOR POD A MS [address]016 [address] [facility] [place] [address] OFFICE [address] [phone] [place] [address] Social History Tobacco Use Types [...]
--- OUTSIDE RECORDS SUMMARY | 2017-09-11 07:57 | XMS REPORT | Encounter Summary ---
Author Author [facility] Organization [facility] Address Unknown Phone Unavailable Care Team Providers Care Diesel Engine Inspector Name Role Phone Apoorva Shane MD Unavailable Edgardo Torres MD Unavailable Amanda Bhandari Unavailable Montana Villasenor MD Unavailable Gilles Ness MD Unavailable Rain Tariq MD Unavailable Harika Hsu MD Unavailable Nayana Mccarty RN Unavailable Unavailable Symone Lee Unavailable Unavailable Sukumar Mondragon APRN PCP Encounter Details Date Type Department Care Team Description 06/13/2017 Procedure Pass Main Operating Room [address] [place] [address] Social History Tobacco Use Types [...]
--- OUTSIDE RECORDS SUMMARY | 2017-09-11 07:57 | XMS REPORT | Encounter Summary ---
Author Author [facility] Organization [facility] Address Unknown Phone Unavailable Care Team Providers Care Squeezer Operator Name Role Phone Apoorva Shane MD Unavailable Edgardo Torres MD Unavailable Amanda Bhandari Unavailable Montana Villasenor MD Unavailable Gilles Ness MD Unavailable Rain Tariq MD Unavailable Harika Hsu MD Unavailable Nayana Mccarty RN Unavailable Unavailable Symone Lee Unavailable Unavailable Sukumar Mondragon APRN PCP Reason for Visit * Reason Comments Medication Follow-up Encounter Details Date Type Department Care Team Description 07/07/2017 Telephone [facility] Balbina Garcia MD Medication Follow-up Physicians - Urology [address] [facility] 2ND FLOOR POD A MS [address] [facility] [place] [address] OFFICE BLDG [phone] [place] [address] Social History Tobacco Use Types [...]
--- OUTSIDE RECORDS SUMMARY | 2017-09-11 07:58 | XMS REPORT | Encounter Summary ---
Author Author [facility] Organization [facility] Address Unknown Phone Unavailable Care Team Providers Care Marine Engine Machinist Apprentice Name Role Phone Apoorva Shane MD Unavailable [...] Contact Diagnoses Urinary obstruction unknown P rocedures HI RMVL/REVJ SLING STRESS INCONTINENCE REVISION/REMOVAL VAGINAL SLING Encounter Details Date Type Department Care Team Description 06/13/2017 Anesthesia Main Operating Room Olga Duron MD Event [address] [facility] [address] [place] [address] MS [address] [place], [place] [id number] Anesthesia Record Procedure Name Responsible Anesthesia Start [...] Huang Siddiqui MD - 06/13/2017 10:23 AM VP SECURITIES Post-Anesthesia Evaluation Name: Nara Huizar : 1955 [...] Tone Fregoso MD - 06/04/2017 8:02 AM VP SECURITIES Formatting of this note may be different [...] Patient History Allergies Allergen Reactions Triple Antibiotic [Hdqsm-Bsggz-Ytflcmu-Pramoxine] RASH Ibuprofen Current Medications Medication Directions albuterol [...] tested positive.) 3-5 L via NC. 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 Plan discussed with: anesthesiologist and OPTICAL DESIGNER. 2/28/18 evaluated by ABA Samaniego; cardiology gave clearance with intermediate risk (from 02/2017). Pulmo saw he 05/29/2017 per pt. LINDSEY from that visit because pt still has some crackles in RLL. Discussed that these things might increase the risk for prolonged intubation and cardiac events. Patient verbalizes that she is aware Addendum: on review of chart, noted brief note from Lnidsay Alejandre, " the patient is currently stable [...] g, Intravenous, ONCE, 1 dose, Fri 07:40 VP SECURITIES 06/13/17 at 0600, Give Pre-Op < 60 minutes prior to first incision. (Given in OR). IV PUSH -- RECONSTITUTE each 1 g vial by adding 10 mL 0.9% NACL dexamethasone (DECADRON) injection Given 06/13/2017 4 mg Intravenous, INTRA-PROCEDURE MED, 08:50 VP SECURITIES Starting Fri06/13/17 at 0850, Until Fri06/13/17 at 0907, Nausea/Vomiting Injectable, Anesthesia Intra-op fentaNYL citrate PF (SUBLIMAZE) Given 06/13/2017 25 mcg injection 07:56 VP SECURITIES INTRA-PROCEDURE MED, Starting Fri06/13/17 at 0732, Until Fri06/13/17 at 0907, Pain Injectable, Anesthesia Intra-op Given 06/13/2017 25 mcg 08:35 VP SECURITIES Given 06/13/2017 25 mcg 08:44 VP SECURITIES indigotindisulfonate (INDIGO CARMINE) Given 06/13/2017 5 mL injection 08:39 VP SECURITIES INTRA-PROCEDURE MED, Starting Fri06/13/17 at 0839, Until Fri06/13/17 at 0907, Anesthesia Intra-op lactated ringers infusion Given - New 06/13/2017 1,000 mL 20 mL/hr 1,000 mL, 1,000 mL, Intravenous, at 20 Bag 06:20 VP SECURITIES mL/hr, CONTINUOUS, Starting Fri06/13/17 at 0600, Until Fri06/13/17 at 1835, Pre-Op Given - New Bag 06/13/2017 08:44 VP SECURITIES lidocaine (PF) injection Given 06/13/2017 60 mg INTRA-PROCEDURE MED, Starting Fri06/13/17 07:32 VP SECURITIES at 0732, Until Fri06/13/17 at 0907, Anesthesia Intra-op midazolam (VERSED) injection Given 06/13/2017 2 mg Intravenous, INTRA-PROCEDURE MED, 07:25 VP SECURITIES Starting Fri06/13/17 at 0725, Until Fri06/13/17 at 0907, Agitation Injectable, Anxiety Injectable, Anesthesia Intra-op ondansetron (ZOFRAN) injection Given 06/13/2017 4 mg Intravenous, INTRA-PROCEDURE MED, 08:50 VP SECURITIES Starting Fri06/13/17 at 0850, Until Fri06/13/17 at 0907, Nausea/Vomiting Injectable, Anesthesia Intra-op phenylephrine in NS Injection Given 06/13/2017 100 mcg Intravenous, INTRA-PROCEDURE MED, 08:04 VP SECURITIES Starting Fri06/13/17 at 0738, Until Fri06/13/17 at 0907, Symptomatic Hypotension, Anesthesia Intra-op Given 06/13/2017 100 mcg 08:13 VP SECURITIES Given 06/13/2017 100 mcg 08:19 VP SECURITIES propofol (DIPRIVAN) injection Given 06/13/2017 100 mg INTRA-PROCEDURE MED, Starting Fri06/13/17 07:32 VP SECURITIES at 0732, Until Fri06/13/17 at 0907, Anesthesia Intra-op in this encounter
--- OUTSIDE RECORDS SUMMARY | 2017-09-11 07:58 | XMS REPORT | Encounter Summary ---
Author Author [facility] Organization [facility] Address Unknown Phone Unavailable Care Team Providers Care Knit Goods Cutter Hand Name Role Phone Apoorva Shane MD Unavailable [...] Balbina Garcia MD Urinary obstruction Encounter [address] [facility] [address] [place] [address] [address] [place] [address] Social History Tobacco Use Types Packs/Day Years Used Date Former Smoker Cigarettes 0.25 46 Smokeless Tobacco: Never Used Alcohol Use Drinks/Week oz/Week Comments No 0 Standard 0.0 drinks or equivalent Sex Assigned at Date Recorded Not on file as of this encounter Last Filed Vital Signs Vital Sign Reading Time Taken Blood Pressure 107/68 06/13/2017 10:15 AM RUBBERIZING MECHANIC Pulse 89 06/13/2017 10:15 AM RUBBERIZING MECHANIC Temperature 36.4 C (97.5 F) 06/13/2017 10:15 AM RUBBERIZING MECHANIC Respiratory Rate - - Oxygen Saturation 94% 06/13/2017 10:15 AM RUBBERIZING MECHANIC Inhaled Oxygen - - Concentration Weight 68.1 kg (150 lb 2.1 oz) 06/13/2017 6:08 AM RUBBERIZING MECHANIC Height 160 cm (5' 2.99") 06/13/2017 6:08 AM RUBBERIZING MECHANIC Body Mass Index 26.6 06/13/2017 6:08 AM RUBBERIZING MECHANIC in this encounter Medications at Time of [...] 1 tablet by mouth 30 tablet 3 03/07/201707/01 (MYRBETRIQ) 50 mg daily for 120 days. [...] Leatha Langford RN - 06/13/2017 10:57 AM RUBBERIZING MECHANIC 1050 - pt bladder scanned post void - 31ml - Dr. Sheridan notified. 1100 - pt cleared to go home per RN working with Dr. Sheridan * Lulu Rosales RN - 06/13/2017 10:47 AM RUBBERIZING MECHANIC Patient's SpO2 > 95 % with 3L NC, which she reports she wears at home. While on room air, patient's sPO2 90-93%. Anesthesia notified at time of sign out. * Lulu Rosales RN - 06/13/2017 10:42 AM RUBBERIZING MECHANIC Per orders, vaginal packing removed at approx. 1035 in PACU. 300 cc urine drained from cronin, 250 cc sterile water instilled into bladder via cronin. Cronin removed after sterile water instilled. Patient tolerated well. Transferred to phase II, hand off provided to Leatha Ozuna RN assuming care of patient. in this encounter H&P Notes * Balbina Garcia MD - 06/13/2017 6:06 AM RUBBERIZING MECHANIC Formatting of this note may be different from the original. History and Physical Update Note Ms Nara Huizar is a 61 yo F with incomplete bladder emptying and straining to void secondary to urethral sling - to OR for urethrolysis and cystoscopy - consent obtained and in chart - will give Ancef crissy-operatively Allergies: Ibuprofen and Triple antibiotic [lintf-vapbq-dzirybt-pramoxine] Lab/Radiology/Other Diagnostic Tests: 24-hour labs: No results found for this visit on 06/13/17 (from the past 24 hour(s)). Point of Care Testing: (Last 24 hours): None I have examined the patient, and there are no significant changes in their condition, from the previous H&P performed on 05/28/2017. Malaika Bergeron MD Pager [phone] ATTESTATION I personally performed the peters portions of the E/M visit, discussed case with resident and concur with resident documentation of history, physical exam, assessment, and treatment plan unless otherwise noted. Staff name: Balbina Garcia MD * Balbina Garcia MD - 05/28/2017 8:45 AM RUBBERIZING MECHANIC Formatting of this note may be different [...] this visit. Allergies Allergen Reactions Triple Antibiotic [Yuctx-Oqpyz-Ubdjrcd-Pramoxine] RASH Ibuprofen Social History Social History Marital [...] Judgment and thought content normal. Vitals reviewed. [id number] Assessment and Plan: Ilya Daniel MD PGY-3 Urology in this encounter Miscellaneous Notes * Operative Report (Direct Entry) - Balbina Garcia MD - 06/13/2017 12:00 PM RUBBERIZING MECHANIC Formatting of this note may be different [...] in the usual sterile fashion. A 16 st helenian cronin catheter was placed on the field in sterile fashion. The anterior vaginal wall was infiltrated with a solution of injectable saline, 1 percent lidocaine with epinephrine mixed [id number]. A midline incision made and spanned the [...] PACU - stable Malcolm Sheridan MD Pager [phone] ATTESTATION I performed this procedure with a resident. 22 modifier was added due to scarrification from prior surgery requiring additional time for disseciton. Staff name: Balbina Garcia MD * Procedures (Immed Post or Bedside) - Balbina Garcia MD - 06/13/2017 9: 04 AM RUBBERIZING MECHANIC Formatting of this note may be different [...] PACU - stable Malcolm Sheridan MD Pager [phone] ATTESTATION I performed this procedure with a [...] 06/13/2017 Urinary obstruction URETHRAL SLING, 7:15 AM RUBBERIZING MECHANIC CYSTOSCOPY in this encounter Results * ECG-SCAN (06/30/2017 3:37 PM) Narrative Ordered by an unspecified provider. * ECG-SCAN (06/16/2017 11:54 AM) Narrative Ordered by an unspecified provider. * POC GLUCOSE (06/13/2017 9:05 AM) Component Value Ref Range Glucose, POC 98 70 - 100 MG/DL Specimen Performing Laboratory MAIN LAB [address] [place] [address] * SURGICAL PATHOLOGY (06/13/2017 9:04 AM) Component Value Ref Range PATHOLOGY REPORT THE [email or web address] Department of Pathology and Laboratory Medicine [address] [place] [address] Surgical Pathology Office:[phone]:[phone] SURGICAL PATHOLOGY REPORT NAME: NARA HUIZAR JO SURG PATH #: [id number] MR #: [id number] SPECIMEN CLASS: SR BILLING #: [id number] ALT ID #:LOCATION: ALICE DATE OF PROCEDURE: [...] fibers. The soft tissue is removed and manufacturers representative sections are submitted in cassette A1. (eef) 06/13/2017 Specimen Performing Laboratory [facility] RESULTS * POC GLUCOSE (06/13/2017 6:25 AM) Component Value Ref Range Glucose, POC 110 (H) 70 - 100 MG/DL Specimen Performing Laboratory [facility] MAIN [facility] [address] [place] [address] in this encounter Visit Diagnoses Diagnosis Urinary obstruction Urinary obstruction, unspecified Admitting Diagnoses Diagnosis Urinary obstruction - unknown Urinary obstruction, unspecified Administered Medications Medication Order MAR Action Action Date Dose Rate Site ceFAZolin (ANCEF) 1 g in sodium chloride Given 06/13/2017 1,000 mL Other 0.9% irrigation bottle 1,000 mL 08:20 RUBBERIZING MECHANIC irrigation bottle 1,000 mL, INTRA-PROCEDURE MED, Starting Fri06/13/17 at 0820, Until Fri06/13/17 at 1835, Intra-op diphenhydrAMINE (BENADRYL) injection 25 mg 25 mg, Intravenous, ONCE PRN, 1 dose, Starting Fri06/13/17 at 0852, Until Fri06/13/17 at 1835, Other..., nausea/vomiting, Third line agent, give if second line agent ineffective. estradiol (ESTRACE) vaginal cream Given 06/13/2017 2 Doses Other INTRA-PROCEDURE MED, Starting Fri06/13/17 08:20 RUBBERIZING MECHANIC at 0820, Until Fri06/13/17 at 1835, Intra-op fentaNYL citrate PF (SUBLIMAZE) Given 06/13/2017 50 mcg injection 25-50 mcg 09:09 RUBBERIZING MECHANIC 25-50 mcg, Intravenous, EVERY 5 MIN PRN, Starting Fri06/13/17 at 0852, Until Fri06/13/17 at 183, Pain Injectable, For Pain Score 7-10, Maximum total dose of 200 mcg Hold for RR < 10 Given 06/13/2017 50 mcg 09:17 RUBBERIZING MECHANIC haloperidol (HALDOL) injection 1 mg 1 mg, Intravenous, ONCE PRN, 1 dose, Starting Fri06/13/17 at 0852, Until Fri06/13/17 at 183, Other..., Nausea and Vomiting, Second line agent, give if first line agent ineffective. DO NOT ADMINISTER if given intraoperatively. HYDROmorphone injection (DILAUDID) Given 06/13/2017 0.5 mg injection 0.5 mg 09:44 RUBBERIZING MECHANIC 0.5 mg, Intravenous, ONCE, 1 dose, Fri06/13/17 at 0945, PACU (only) lactated ringers infusion Given - New 06/13/2017 1,000 mL 20 mL/hr 1,000 mL, 1,000 mL, Intravenous, at 20 Bag 06:20 RUBBERIZING MECHANIC mL/hr, CONTINUOUS, Starting Fri06/13/17 at 0600, Until Fri06/13/17 at 183, Pre-Op Given - New Bag 06/13/2017 08:44 RUBBERIZING MECHANIC lactated ringers infusion 1,000 mL, 250 mL, Intravenous, SEE ADMIN INSTRUCTIONS, Starting Fri06/13/17 at 0852, Until Fri06/13/17 at 183, Replace NPO loss per post anesthesia protocol with Lactated Ringers or Normal Saline unless otherwise ordered by physician. lidocaine 1% /EPINEPHrine [id number] Given 06/13/2017 20 mL Other (buffered) vial 08:44 RUBBERIZING MECHANIC INTRA-PROCEDURE MED, Starting Fri06/13/17 at 0821, Until [...] Given 06/13/2017 10 mg 5-10 mg 09:22 RUBBERIZING MECHANIC 5-10 mg, Oral, ONCE PRN, 1 dose, Starting Fri06/13/17 at 0852, Until Fri06/13/17 at 2359, Pain PO, For Pain Score <4, PACU (only) sodium chloride 0.9 % irrigation bag Given 06/13/2017 3,000 mL Other INTRA-PROCEDURE MED, Starting Fri06/13/17 08:22 RUBBERIZING MECHANIC at 0822, Until Fri06/13/17 at 1835, Intra-op water, sterile irrigation bottle Given 06/13/2017 Irrigation, ONCE, 1 dose, Fri06/13/17 at 10:51 RUBBERIZING MECHANIC 1000, PACU (only) in this encounter
--- OUTSIDE RECORDS SUMMARY | 2017-09-11 07:58 | XMS REPORT | Encounter Summary ---
Author Author [facility] Organization [facility] Address Unknown Phone Unavailable Care Team Providers Care Oleo Hasher And Renderer Name Role Phone Apoorva Shane MD Unavailable [...] Contact Diagnoses Urinary obstruction unknown P rocedures MN RMVL/REVJ SLING STRESS INCONTINENCE REVISION/REMOVAL VAGINAL SLING Encounter Details Date Type Department Care Team Description 06/13/2017 Surgery Main Operating Room Balbina Garcia MD URETHROLYSIS, INCISION OF [address] [place] [address] URETHRAL SLING, [place] [address] [address] CYSTOSCOPY [phone] [place] [address] Social History Tobacco Use Types Packs/Day Years Used Date Former Smoker Cigarettes 0.25 46 Smokeless Tobacco: Never Used Alcohol Use Drinks/Week oz/Week Comments No 0 Standard 0.0 drinks or equivalent Sex Assigned at Date Recorded Not on file as of this encounter Last Filed Vital Signs Vital Sign Reading Time Taken Blood Pressure 107/68 06/13/2017 10:15 AM RETAIL AND PROMOTIONS COORDINATOR Pulse 89 06/13/2017 10:15 AM RETAIL AND PROMOTIONS COORDINATOR Temperature 36.4 C (97.5 F) 06/13/2017 10:15 AM RETAIL AND PROMOTIONS COORDINATOR Respiratory Rate - - Oxygen Saturation 94% 06/13/2017 10:15 AM RETAIL AND PROMOTIONS COORDINATOR Inhaled Oxygen - - Concentration Weight 68.1 kg (150 lb 2.1 oz) 06/13/2017 6:08 AM RETAIL AND PROMOTIONS COORDINATOR Height 160 cm (5' 2.99") 06/13/2017 6:08 AM RETAIL AND PROMOTIONS COORDINATOR Body Mass Index 26.6 06/13/2017 6:08 AM RETAIL AND PROMOTIONS COORDINATOR in this encounter Medications at Time of [...] Leatha Langford RN - 06/13/2017 10:57 AM RETAIL AND PROMOTIONS COORDINATOR 1050 - pt bladder scanned post void - 31ml - Dr. Sheridan notified. 1100 - pt cleared to go home per RN working with Dr. Sheridan * Lulu Rosales RN - 06/13/2017 10:47 AM RETAIL AND PROMOTIONS COORDINATOR Patient's SpO2 > 95 % with 3L NC, which she reports she wears at home. While on room air, patient's sPO2 90-93%. Anesthesia notified at time of sign out. * Lulu Rosales RN - 06/13/2017 10:42 AM RETAIL AND PROMOTIONS COORDINATOR Per orders, vaginal packing removed at approx. 1035 in PACU. 300 cc urine drained from cronin, 250 cc sterile water instilled into bladder via cronin. Cronin removed after sterile water instilled. Patient tolerated well. Transferred to phase II, hand off provided to Leatha Ozuna RN assuming care of patient. in this encounter H&P Notes * Balbina Garcia MD - 06/13/2017 6:06 AM RETAIL AND PROMOTIONS COORDINATOR Formatting of this note may be different from the original. History and Physical Update Note Ms Nara Huizar is a 61 yo F with incomplete bladder emptying and straining to void secondary to urethral sling - to OR for urethrolysis and cystoscopy - consent obtained and in chart - will give Ancef crissy-operatively Allergies: Ibuprofen and Triple antibiotic [bucxg-krmno-qxsmjkc-pramoxine] Lab/Radiology/Other Diagnostic Tests: 24-hour labs: No results found for this visit on 06/13/17 (from the past 24 hour(s)). Point of Care Testing: (Last 24 hours): None I have examined the patient, and there are no significant changes in their condition, from the previous H&P performed on 05/28/2017. Malaika Bergeron MD Pager [phone] ATTESTATION I personally performed the peters portions of the E/M visit, discussed case with resident and concur with resident documentation of history, physical exam, assessment, and treatment plan unless otherwise noted. Staff name: Balbina Garcia MD * Balbina Garcia MD - 05/28/2017 8:45 AM RETAIL AND PROMOTIONS COORDINATOR Formatting of this note may be different [...] one in 2014 COLONOSCOPY [place] SIGMOIDOSCOPY FLX DX W/COLLJ SPEC BR/WA IF PFRMD N/A 09/26/2015 SIGMOIDOSCOPY DIAGNOSTIC to rule out ulcerative colitis. performed by Edgardo Torres MD [facility] [place] SIGMOIDOSCOPY FLX W/BIOPSY SINGLE/MULTIPLE 09/26/2015 SIGMOIDOSCOPY BIOPSY [...] this visit. Allergies Allergen Reactions Triple Antibiotic [Sxjnq-Diuli-Wxrahqi-Pramoxine] RASH Ibuprofen Social History Social History Marital [...] Judgment and thought content normal. Vitals reviewed. [id number] Assessment and Plan: Ilya Daniel MD PGY-3 Urology in this encounter Miscellaneous Notes * Operative Report (Direct Entry) - Balbina Garcia MD - 06/13/2017 12:00 PM RETAIL AND PROMOTIONS COORDINATOR Formatting of this note may be different [...] in the usual sterile fashion. A 16 swedish cronin catheter was placed on the field in sterile fashion. The anterior vaginal wall was infiltrated with a solution of injectable saline, 1 percent lidocaine with epinephrine mixed [id number]-ooyl. A midline incision made and spanned the [...] PACU - stable Malcolm Sheridan MD Pager [phone] ATTESTATION I performed this procedure with a resident. 22 modifier was added due to scarrification from prior surgery requiring additional time for disseciton. Staff name: Balbina Garcia MD * Procedures (Immed Post or Bedside) - Balbina Garcia MD - 06/13/2017 9: 04 AM RETAIL AND PROMOTIONS COORDINATOR Formatting of this note may be different [...] catheter to gravity Disposition: PACU - stable Maloclm Sheridan MD Pager [phone] ATTESTATION I performed this procedure with a [...] 06/13/2017 Urinary obstruction URETHRAL SLING, 7:15 AM RETAIL AND PROMOTIONS COORDINATOR CYSTOSCOPY in this encounter Results * ECG-SCAN (06/30/2017 3:37 PM) Narrative Ordered by an unspecified provider. * ECG-SCAN (06/16/2017 11:54 AM) Narrative Ordered by an unspecified provider. * POC GLUCOSE (06/13/2017 9:05 AM) Component Value Ref Range Glucose, POC 98 70 - 100 MG/DL Specimen Performing Laboratory MAIN LAB [address] [place] [address] * SURGICAL PATHOLOGY (06/13/2017 9:04 AM) Component Value Ref Range PATHOLOGY REPORT [facility] [email or web address] Department of Pathology and Laboratory Medicine [address] [place] [address] Surgical Pathology Office:[phone]:[phone] SURGICAL PATHOLOGY REPORT NAME: NARA HUIZAR JO SURG PATH #: [id number] MR #: [id number] SPECIMEN CLASS: SR BILLING #: [id number] ALT ID #:LOCATION: ALICE DATE OF PROCEDURE: [...] fibers. The soft tissue is removed and community representative sections are submitted in cassette A1. (eef) 06/13/2017 Specimen Performing Laboratory [facility] RESULTS * POC GLUCOSE (06/13/2017 6:25 AM) Component Value Ref Range Glucose, POC 110 (H) 70 - 100 MG/DL Specimen Performing Laboratory [facility] MAIN [facility] [address] [place] [address] in this encounter Visit Diagnoses Diagnosis Urinary obstruction Urinary obstruction, unspecified Admitting Diagnoses Diagnosis Urinary obstruction - unknown Urinary obstruction, unspecified Administered Medications Medication Order MAR Action Action Date Dose Rate Site ceFAZolin (ANCEF) 1 g in sodium chloride Given 06/13/2017 1,000 mL Other 0.9% irrigation bottle 1,000 mL 08:20 RETAIL AND PROMOTIONS COORDINATOR irrigation bottle 1,000 mL, INTRA-PROCEDURE MED, Starting Fri06/13/17 at 0820, Until Fri06/13/17 at 1835, Intra-op diphenhydrAMINE (BENADRYL) injection 25 mg 25 mg, Intravenous, ONCE PRN, 1 dose, Starting Fri06/13/17 at 0852, Until Fri06/13/17 at 1835, Other..., nausea/vomiting, Third line agent, give if second line agent ineffective. estradiol (ESTRACE) vaginal cream Given 06/13/2017 2 Doses Other INTRA-PROCEDURE MED, Starting Fri06/13/17 08:20 RETAIL AND PROMOTIONS COORDINATOR at 0820, Until Fri06/13/17 at 1835, Intra-op fentaNYL citrate PF (SUBLIMAZE) Given 06/13/2017 50 mcg injection 25-50 mcg 09:09 RETAIL AND PROMOTIONS COORDINATOR 25-50 mcg, Intravenous, EVERY 5 MIN PRN, Starting Fri06/13/17 at 0852, Until Fri06/13/17 at 1835, Pain Injectable, For Pain Score 7-10, Maximum total dose of 200 mcg Hold for RR < 10 Given 06/13/2017 50 mcg 09:17 RETAIL AND PROMOTIONS COORDINATOR haloperidol (HALDOL) injection 1 mg 1 mg, Intravenous, ONCE PRN, 1 dose, Starting Fri06/13/17 at 0852, Until Fri06/13/17 at 183, Other..., Nausea and Vomiting, Second line agent, give if first line agent ineffective. DO NOT ADMINISTER if given intraoperatively. HYDROmorphone injection (DILAUDID) Given 06/13/2017 0.5 mg injection 0.5 mg 09:44 RETAIL AND PROMOTIONS COORDINATOR 0.5 mg, Intravenous, ONCE, 1 dose, Fri06/13/17 at 0945, PACU (only) lactated ringers infusion Given - New 06/13/2017 1,000 mL 20 mL/hr 1,000 mL, 1,000 mL, Intravenous, at 20 Bag 06:20 RETAIL AND PROMOTIONS COORDINATOR mL/hr, CONTINUOUS, Starting Fri06/13/17 at 0600, Until Fri06/13/17 at 1835, Pre-Op Given - New Bag 06/13/2017 08:44 RETAIL AND PROMOTIONS COORDINATOR lactated ringers infusion 1,000 mL, 250 mL, Intravenous, SEE ADMIN INSTRUCTIONS, Starting Fri06/13/17 at 0852, Until Fri06/13/17 at 183, Replace NPO loss per post anesthesia protocol with Lactated Ringers or Normal Saline unless otherwise ordered by physician. lidocaine 1% /EPINEPHrine 1:[id number] Given 06/13/2017 20 mL Other (buffered) vial 08:44 RETAIL AND PROMOTIONS COORDINATOR INTRA-PROCEDURE MED, Starting Fri06/13/17 at 0821, Until [...] Given 06/13/2017 10 mg 5-10 mg 09:22 RETAIL AND PROMOTIONS COORDINATOR 5-10 mg, Oral, ONCE PRN, 1 dose, Starting Fri06/13/17 at 0852, Until Fri06/13/17 at 2359, Pain PO, For Pain Score <4, PACU (only) sodium chloride 0.9 % irrigation bag Given 06/13/2017 3,000 mL Other INTRA-PROCEDURE MED, Starting Fri06/13/17 08:22 RETAIL AND PROMOTIONS COORDINATOR at 0822, Until Fri06/13/17 at 1835, Intra-op water, sterile irrigation bottle Given 06/13/2017 Irrigation, ONCE, 1 dose, Fri06/13/17 at 10:51 RETAIL AND PROMOTIONS COORDINATOR 1000, PACU (only) in this encounter
--- OUTSIDE RECORDS SUMMARY | 2017-09-11 08:03 | XMS REPORT ---
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 Active 85145910 Problem Colon polyp K63.5 Active 73607335 Problem Bilateral low back pain without sciatica M54.5 Active 125319386 Problem Screening breast examination Z12.39 Active 891193919 Problem Postmenopausal Z78.0 Active 28346459 Problem Osteopenia M85.80 Active 472946160 Problem Cigarette nicotine dependence without complication F17.210 Active 50257889 Problem Type 2 diabetes mellitus with diabetic peripheral angiopathy without gangrene E11.51 Active 449480750 Problem Vascular dementia without behavioral disturbance F01.50 Active [id number] Problem Unspecified atherosclerosis of [place] arteries of extremities, unspecified extremity I70.209 Active 116515552406679 Problem Arthritis M19.90 Active 5782888 Problem Chronic atrial fibrillation I48.2 Active 734334364 Problem Chronic obstructive pulmonary disease with acute lower respiratory infection J44.0 Active 119034876 Problem Other chronic pancreatitis K86.1 Active 467580902 Problem Stress incontinence of urine N39.3 Active 90672212 Problem Controlled type 2 diabetes mellitus without complication, without long -term current use of insulin E11.9 Active 445222966 Problem Unspecified psychosis F29 Active 78934666 Problem Xeroderma Q80.9 Active 42925936 Problem COPD (chronic obstructive pulmonary disease) J44.9 Active 19755315 Problem Dementia without behavioral disturbance, unspecified dementia type F03.90 Active 74080870 Problem Gastroparesis K31.84 Active 978475443 Problem Type 2 diabetes mellitus with diabetic neuropathy, without long-term current use of insulin E11.40 Active 66535637 Problem Osteoporosis M81.0 Active 23674405 Problem Atherosclerosis of [place] artery of both lower extremities with intermittent claudication I70.213 Active 671890785786775 Problem Hyperlipidemia E78.5 Active 79624742 Problem Diabetic polyneuropathy associated with type 2 diabetes mellitus E11.42 Active 45337780 Problem Essential tremor G25.0 Active 37455711 Problem Atherosclerotic heart disease of [place]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 I25.118 Active 9719870626257 Problem Generalized anxiety disorder F41.1 Active 928889399 Problem Gastroesophageal reflux disease, esophagitis presence not specified K21.9 Active 903994440 Problem Coronary artery disease involving [place] coronary artery of [place] 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 I25.118 Active 4345896701698 Problem Postconcussion syndrome F07.81 Active 94328736 Problem Chronic pain syndrome G89.4 Active 237066294 Problem Migraine without aura and without status migrainosus, not intractable G43.009 Active 605283532 Problem Paroxysmal atrial fibrillation I48.0 Active 712336006 Problem Migraine without aura and with status migrainosus, not intractable G43.001 Active 749828494 Problem Cervicalgia M54.2 Active 2623182892868 Problem Acute exacerbation of chronic obstructive pulmonary disease (COPD) J44.1 Active 998300306 Problem Major depressive disorder, recurrent episode, moderate F33.1 Active 988663774 Problem Crohn''s disease without complication, unspecified gastrointestinal tract location K50.90 Active 93036141 Problem Chronic fatigue R53.82 Active 79470114 Problem Bipolar affective disorder, currently depressed, moderate F31.32 Active 952201701 ALLERGIES No Information ENCOUNTERS Encounter Location Date Diagnosis [facility] [id number], [place] [address] Nov, [facility] [id number] [place] [address] 31524- 7384 Oct, [facility] [address], [place] [address] Sep, [facility] [address] [address] August, [facility] [id number] [place] [address] 92990- 4552 August, [facility] [address] 57718- 4732 August, Gastroesophageal reflux disease, esophagitis presence not specified K21.9 [facility] [id number] [place] [address] 19218- 1829 August, [facility] [address] 68976- 4270 August, [facility] [id number] [place] [address] 45985- 8532 August, [facility] [id number] [place] [address] 88790- 3329 August, Type 2 diabetes mellitus with diabetic neuropathy, without long-term current use of insulin E11.40 and Elevated liver enzymes R74.8 [address] [address] 21881- 4334 Jul, [facility] [id number] [place] [address] 38891- 0854 Jul, Cough R05 [facility] [id number] [place] [address] 18818- 8341 Jul, [facility] [id number] [place] [address] 85223- 7233 Jul, [facility] [id number] [place] [address] 73725- 2950 Jul, Bipolar affective disorder, currently depressed, moderate F31.32 ; Vascular dementia without behavioral disturbance F01.50 and Generalized anxiety disorder F41.1 [facility] [id number] [place] [address] 73191- 9774 Jul, [facility] [id number] [place] [address] 40259- 7368 Jul, Type 2 diabetes mellitus with diabetic neuropathy, without long-term current use of insulin E11.40 and Elevated liver enzymes R74.8 [facility] [address] 65688- 5531 Jul, [facility] [address] 56282- 3669 Jul, [facility] [address] 75987- 3895 Jul, [facility] [address] 40314- 5488 Jul, Post-menopausal Z78.0 [address] [address] 03502- 4404 Jul, Stress incontinence of urine N39.3 [place] [facility] [address] 73464- 4691 Jul, [facility] [address] 20000- 6652 Jul, [facility] [address] 15786- 7809 Jul, Stress incontinence of urine N39.3 and Cough R05 [address] [facility] [address] 47852- 9196 Jul, [facility] [id number] [place] [address] 43794- 1200 Jul, [facility] [id number] [place] [address] 73094- 3798 Jul, [facility] [address] 28470- 4343 Jul, Gastroesophageal reflux disease, esophagitis presence not specified K21.9 [facility] [id number] [place] [address] 44644- 5709 Jun, Diabetic polyneuropathy associated with type 2 diabetes mellitus E11.42 [facility] [address] 35841- 5753 Jun, Diabetic polyneuropathy associated with type 2 diabetes mellitus E11.42 ; Coronary artery disease involving [place] coronary artery of [place] 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 I25.118 and Paroxysmal atrial fibrillation I48.0 [facility] [address], [place] [address] 42[address] Jun, [facility] [id number] [place] [address] 64853- 9333 Jun, [facility] [id number] [place] [address] 29674- 9980 Jun, Gastroenteritis K52.9 [facility] [id number] [place] [address] 66833- 5975 Jun, Gastroenteritis K52.9 [facility] [id number] [place] [address] 99866- 8723 Jun, [facility] [id number] [place] [address] 68253- 9116 Jun, [facility] [id number] [place] [address] 79736- 7674 Jun, Sprain of right ankle, unspecified ligament, initial encounter S93.401A ; Type 2 diabetes mellitus with diabetic neuropathy, without long-term current use of insulin E11.40 ; Atherosclerosis of [place] artery of both lower extremities with intermittent claudication I70.213 ; Atherosclerotic heart disease of [place]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 I25.118 ; Chronic atrial fibrillation I48.2 and Crohn''s disease without complication, unspecified gastrointestinal tract location K50.90 [facility] [address] [address] 17 Jun, 2017 Cough R05 and Chronic obstructive pulmonary disease with acute lower respiratory infection J44.0 [facility] [id number], [place] [address] 62[address] 16 Jun, 2017 [facility] [id number] [place] [address] 09894- 6634 Jun, Coughing R05 ; Unspecified atherosclerosis of [place] arteries of extremities, unspecified extremity I70.209 ; Type 2 diabetes mellitus with diabetic peripheral angiopathy without gangrene E11.51 ; Crohn''s disease without complication, unspecified gastrointestinal tract location K50.90 ; Other chronic pancreatitis K86.1 and Chronic atrial fibrillation I48.2 [facility] [address] [place] [address] 34786 -7060 Jun, [facility] [id number] [place] [address] 03192- 2277 Jun, Bipolar affective disorder, currently depressed, moderate F31.32 ; Vascular dementia without behavioral disturbance F01.50 and Generalized anxiety disorder F41.1 [facility] [id number] [place] [address] 57867- 7909 May, Generalized anxiety disorder F41.1 [facility] [id number] [place] [address] 20330- 4658 May, [facility] [id number] [place] [address] 86798- 8831 May, [facility] [id number] [place] [address] 74693- 2255 May, Coughing R05 [facility] [id number] [place] [address] 65531- 9427 May, [facility] [id number] [place] [address] 31779- 2385 May, Bipolar affective disorder, currently depressed, moderate F31.32 ; Vascular dementia without behavioral disturbance F01.50 and Generalized anxiety disorder F41.1 [facility] [id number] [place] [address] 26404- 4676 Apr, Generalized anxiety disorder F41.1 [facility] [id number] [place] [address] 99977- 9966 Apr, [facility] [id number] [place] [address] 88463- 3217 Apr, Vascular dementia without behavioral disturbance F01.50 ; Generalized anxiety disorder F41.1 and Bipolar affective disorder, currently depressed, moderate F31.32 [facility] [id number] [place] [address] 28562- 6730 Apr, Generalized anxiety disorder F41.1 [facility] [id number] [place] [address] 01125 -6329 Apr, Cough R05 and Acute exacerbation of chronic obstructive pulmonary disease (COPD) J44.1 [place] [address] 63082- 0814 Apr, [facility] [address] 08556 -1821 Mar, Cough R05 and Cigarette nicotine dependence without complication F17.210 [address] [address] 26033- 9945 Mar, [facility] [address] 11406- 8653 Feb, Generalized anxiety disorder F41.1 ; Major depressive disorder, recurrent episode, moderate F33.1 ; Vascular dementia without behavioral disturbance F01.50 and Unspecified psychosis F29 [facility] [id number] [place] [address] 55731- 9342 Feb, [facility] [id number] [place] [address] 96613- 3618 Feb, [facility] [id number] [place] [address] 51009- 4264 Feb, Generalized anxiety disorder F41.1 [facility] [facility] [address] 18488- 7465 Feb, Generalized anxiety disorder F41.1 [facility] [id number] [place] [address] 16482- 6753 06 Feb, 2017 Dizziness R42 ; Chronic fatigue R53.82 ; Postconcussion syndrome F07.81 ; Fall, initial encounter W19.XXXA and Disorientation R41.0 [address] [address] 14173- 6292 Feb, Postconcussion syndrome F07.81 ; Injury of head, initial encounter S09.90XA ; Fall, initial encounter W19.XXXA ; Disorientation R41.0 and Acute cystitis with hematuria N30.01 [address] [address] 72409- 8407 Jan, Gastroesophageal reflux disease, esophagitis presence not specified K21.9 ; Post-menopausal Z78.0 and Migraine without aura and without status migrainosus, not intractable G43.009 [address] [address] 52353- 0108 Jan, [place] [address] 83530- 0367 Jan, Generalized anxiety disorder F41.1 ; Major depressive disorder, recurrent episode, moderate F33.1 ; Vascular dementia without behavioral disturbance F01.50 and Unspecified psychosis F29 [address] [address] 14193- 7972 Jan, Pneumonia of left lower lobe due to infectious organism J18.1 [address] [address] 82674- 8900 Jan, Migraine without aura and with status migrainosus, not intractable G43.001 [facility] [id number] [place] [address] 39919 -3512 Jan, Migraine without aura and without status migrainosus, not intractable G43.009 [address] [place] [address] 15454- 7561 Dec, Hematoma T14.8 [facility] [address] 80385- 0987 Dec, [facility] [address] [place] [address] Nov, Fatigue, unspecified type R53.83 [facility] [id number] [place] [address] 62986- 4353 Nov, Scabies B86 and Coronary artery disease involving [place] coronary artery of [place] 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 I25.118 [facility] [id number] [place] [address] 83139- 4840 Nov, [facility] [id number] [place] [address] 84333- 2301 Nov, [facility] [id number] [place] [address] 62530- 6024 Oct, [facility] [id number] [place] [address] 33130- 2534 Oct, Generalized anxiety disorder F41.1 and Major depressive disorder, recurrent episode, moderate F33.1 [facility] [id number] [place] [address] 10138- 1556 Oct, Cramp of both lower extremities R25.2 [facility] [id number] [place] [address] 44154- 6073 Oct, Leg cramps R25.2 [facility] [id number] [place] [address] 52050- 7379 Oct, Chronic pain syndrome G89.4 [facility] [facility] [id number] [place] [address] 07565- 1138 Oct, [facility] [id number] [place] [address] 90101- 0260 Oct, [place] [id number] [place] [address] 73825- 2942 Oct, Routine gynecological examination Z01.419 and Screening for breast cancer Z12.31 [facility] [id number] [place] [address] 16527- 2803 Sep, Diarrhea R19.7 [facility] [id number] [place] [address] 20920- 9860 Sep, Back pain M54.9 [address] [facility] [id number] [place] [address] 83259- 1310 Sep, [facility] [id number] [place] [address] 59625- 5806 Sep, [facility] [id number] [place] [address] 33906 -7205 August, Xeroderma Q80.9 [address] [place] 24605- 2650 August, Dementia without behavioral disturbance, unspecified dementia type F03.90 [facility] [id number] [place] [address] 94324- 5125 August, Chronic pain syndrome G89.4 [facility] [id number] [place] [address] 52833- 5281 August, [facility] [id number] [place] [address] 27677- 6048 August, Hyperlipidemia E78.5 ; Other fatigue R53.83 and Other specified hypotension I95.89 [facility] [id number] [place] [address] 36016 -8787 August, Dysuria R30.0 ; Other fatigue R53.83 and Other specified hypotension I95.89 [facility] [id number] [place] [address] 66019- 0416 August, [facility] [facility] [id number] [place] [address] 17142- 6786 Jul, Pain in left knee M25.562 and Gastroenteritis K52.9 [facility] [id number] [place] [address] 88239- 9870 Jul, [facility] [address] 07690- 3448 Jul, Diarrhea R19.7 [facility] [address] 15413 -2033 Jul, Spider bite, accidental or unintentional, initial encounter T63.301A [facility] [address] 63894- 8882 Jul, Primary osteoarthritis of right knee M17.11 and Arthritis M19.90 [address] [place] [address] 30615- 3264 Jul, Generalized anxiety disorder F41.1 and Major depressive disorder, recurrent episode, moderate F33.1 [address] [address] 61364- 0669 07 Jul, 2016 Type 2 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 and Temporal headache R51 [address] [place] [address] 75017- 1294 Jul, Back pain M54.9 [address] [address] 24208- 5987 Jul, [address] [address] 38891- 6947 Jul, [facility] [address] 45470- 3261 Jun, Nausea R11.0 [facility] [address] 56010 -8780 Jun, Acute suppurative otitis media of both ears without spontaneous rupture of tympanic membranes, recurrence not specified H66.003 and COPD exacerbation J44.1 [facility] [address] 52500- 6897 Jun, Generalized anxiety disorder F41.1 [facility] [address] 45642- 5101 16 Jun, 2016 [facility] [address] [place] [address] -7709 13 Jun, 2016 [facility] [id number] [place] [address] 92771 -1358 13 Jun, 2016 Shortness of breath R06.02 and COPD exacerbation J44.1 [facility] [id number] [place] [address] 31040- 0919 10 Jun, 2016 Eczema, unspecified type L30.9 [facility] [address] 11322- 0228 09 Jun, 2016 [facility] [id number] [place] [address] 75942- 4457 24 May, 2016 [facility] [address] 04740- 4985 May, Muscle cramping R25.2 [address] [place] 62906- 6726 May, [facility] [id number] [place] [address] 82072- 7949 Apr, Diarrhea R19.7 [address] [address] 14780- 3987 Apr, [facility] [id number] [place] [address] 09708- 0004 Apr, Chronic pain syndrome G89.4 [address] [address] 63804- 5857 Apr, Cramp of both lower extremities R25.2 and Vascular dementia without behavioral disturbance F01.50 [address] [address] 10206- 8542 Apr, Type 2 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 and Cigarette nicotine dependence without complication F17.210 [facility] [id number] [place] [address] 99158- 7753 Mar, Generalized anxiety disorder F41.1 [facility] [id number] [place] [address] 28682- 7403 Feb, Generalized anxiety disorder F41.1 and Major depressive disorder, recurrent episode, moderate F33.1 [facility] [id number] [place] [address] 63588- 1258 Feb, [facility] [address] 45702 -8508 Feb, Dysuria R30.0 and Acute cystitis with hematuria N30.01 [facility] [address] 32814- 8248 Jan, [address] [address] 14342- 8317 Jan, [facility] [address] 95925- 0489 Jan, [place] [address] 50435- 2948 Jan, [facility] [id number] [place] [address] 84025 -3546 Jan, Wasp sting, accidental or unintentional, initial encounter T63.461A [facility] [id number] [place] [address] 63674- 7430 06 Jan, 2016 Encounter for immunization Z23 [facility] [facility] [id number] [place] [address] 04187- 4336 Jan, [facility] [id number] [place] [address] 55507- 0602 Jan, [place] [address] 97193- 1284 Dec, Generalized anxiety disorder F41.1 and Major depressive disorder, recurrent episode, moderate F33.1 [facility] [id number] [place] [address] 75766- 1346 Dec, Routine gynecological examination Z01.419 ; Postmenopausal Z78.0 ; Screening breast examination Z12.39 ; Osteopenia M85.80 and Breast cancer screening Z12.39 [facility] [address], [place] [address]- 7641 20 Dec, 2015 [facility] [address], [place] [address]- 0845 19 Dec, 2015 [facility] [id number] [place] [address] 92910- 4508 16 Dec, 2015 [facility] [id number] [place] [address] 97500- 4683 16 Dec, 2015 [facility] [id number] [place] [address] 79752- 2810 14 Dec, 2015 [facility] [id number] [place] [address] 51501- 8741 Dec, [facility] [id number] [place] [address] 09585- 7493 30 Nov, 2015 [facility] [address], [place] [address] Nov, Cough R05 ; Other viral agents as the cause of diseases classified elsewhere B97.89 and Acute upper respiratory infection, unspecified J06.9 [facility] [address], [place] [address]- 5735 Nov, [facility] [address] [address]- 5025 Nov, [facility] [address] [address]- 5586 Nov, [facility] [id number] [place] [address] 66769- 9634 Nov, [facility] [address] [address]- 8883 Nov, [facility] [id number] [place] [address] 51409- 0984 Oct, [facility] [address] [place] [address] 61182- 5170 Oct, [facility] [id number] [place] [address] 22660- 2590 Oct, [facility] [id number] [place] [address] 79802- 5172 Oct, Chronic pain syndrome G89.4 [facility] [address] 89968- 6213 Sep, Generalized anxiety disorder F41.1 and Major depressive disorder, recurrent episode, moderate F33.1 [place] [address] 77425- 3466 Sep, [place] [id number] [place] [address] 00941- 8058 Sep, [facility] [address] 54753- 4049 Sep, Generalized anxiety disorder F41.1 [facility] [id number] [place] [address] 26514- 4826 Sep, Cramp of both lower extremities R25.2 and Cervicalgia M54.2 [facility] [id number] [place] [address] 77308- 4134 Sep, Generalized anxiety disorder F41.1 [facility] [id number] [place] [address] 06388- 4640 Sep, [facility] [id number] [place] [address] 93984 -4901 August, Rash R21 ; Itching L29.9 and Allergic response, subsequent encounter T78.40XD [facility] [id number] [place] [address] 95224- 5455 August, Primary insomnia F51.01 [facility] [id number] [place] [address] 53115 -0389 August, Rash R21 ; Itching L29.9 and Allergic response, initial encounter T78.40XA [facility] [id number] [place] [address] 73007- 8682 August, [facility] [id number] [place] [address] 00254- 5743 August, Cramp of both lower extremities R25.2 [facility] [id number] [place] [address] 03329- 1419 August, Back pain M54.9 [facility] [id number] [place] [address] 45201- 3026 August, [facility] [id number] [place] [address] 39809- 2125 August, [facility] [id number] [place] [address] 27989 -6646 August, Cramp of both lower extremities R25.2 [facility] [id number] [place] [address] 69256- 6954 August, [facility] [id number] [place] [address] 73327- 0830 August, Syncope R55 ; Paroxysmal atrial fibrillation I48.0 ; Dementia without behavioral disturbance, unspecified dementia type F03.90 and Chronic pain syndrome G89.4 [facility] [id number] [place] [address] 90673- 5427 August, Type 2 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 and Syncope R55 [facility] [id number] [place] [address] 32358- 5677 Jul, [facility] [id number] [place] [address] 76356- 6065 Jul, [facility] [id number] [place] [address] 61855- 9019 Jul, [facility] [address] [address] 6573 25 Jul, 2015 [facility] [address] [address]- 7736 22 Jul, 2015 [facility] [address] [address] 2546 19 Jul, 2015 UTI (urinary tract infection) N39.0 [facility] [address] [address] 2546 18 Jul, 2015 [facility] [address] [address]- 2978 18 Jul, 2015 Major depressive disorder, recurrent episode, moderate F33.1 and Generalized anxiety disorder F41.1 [facility] [address] [address]- 9855 14 Jul, 2015 Generalized anxiety disorder F41.1 [facility] [address] [address]- 4722 14 Jul, 2015 Diarrhea R19.7 [facility] [address] [address]- 6283 14 Jul, 2015 [facility] [address] [address]- 8641 Jun, [facility] [address] [address]- 4187 Jun, Eczema L30.9 [facility] [address] [address]- 2627 Jun, [facility] [address] [address]- 6398 17 Jun, 2015 COPD (chronic obstructive pulmonary disease) J44.9 [facility] [address], [place] [address]- 2546 16 Jun, 2015 [facility] [address] [address]- 9891 02 Mar, 2016 Major depressive disorder, recurrent episode, moderate F33.1 and Generalized anxiety disorder F41.1 [facility] [address] [address]- 8126 May, [facility] [address] [address]- 4637 May, UTI (urinary tract infection) N39.0 [facility] [id number] [place] [address] 12244- 5953 May, [facility] [address] [address]- 2712 May, [facility] [id number] [place] [address] 54876- 8478 May, [facility] [id number] [place] [address] 94357- 8666 May, [facility] [id number] [address]- 8021 Apr, Major depressive disorder, recurrent episode, moderate F33.1 and Generalized anxiety disorder F41.1 [facility] [address], [place] [address]- 7506 Apr, COPD (chronic obstructive pulmonary disease) J44.9 [facility] [address] [address]- 5652 Apr, [facility] [address] [address]- 3644 Apr, Atrial flutter I48.92 [facility] [address], [place] [address]- 6372 Apr, [facility] [address] [address]- 4715 Apr, [facility] [address] [address]- 9002 Mar, [facility] [id number] [address]- 7389 17 Mar, 2015 [facility] [id number] [place] [address] 14235- 0282 Mar, [facility] [id number] [place] [address] 86223- 1509 Mar, Hyperlipidemia E78.5 ; Type 2 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 ; Major depressive disorder, recurrent episode, moderate F33.1 and Chronic pain syndrome G89.4 [facility] [id number] [place] [address] 61430- 6926 16 Mar, 2015 [facility] [id number] [place] [address] 81952- 3284 Mar, [facility] [id number] [place] [address] 32625- 4817 Mar, [facility] [id number] [place] [address] 94436- 1285 Mar, [facility] [id number] [place] [address] 62280- 9148 Feb, COPD (chronic obstructive pulmonary disease) J44.9 and Back pain M54.9 [facility] [address], [place] [address]- 3788 Feb, [facility] [id number] [place] [address] 29440- 2473 Feb, [facility] [address], [place] [address]- 7655 Feb, [facility] [id number] [place] [address] 10526- 3720 Feb, [facility] [id number] [place] [address] 14308- 9712 Feb, [facility] [address] [address]- 0991 Feb, [facility] [id number] [address]- 9751 Feb, [facility] [id number] [place] [address] 28389- 1722 Feb, [facility] [id number] [place] [address] 23565- 0100 Feb, Diabetes E11.9 ; Back pain M54.9 and COPD (chronic obstructive pulmonary disease) J44.9 [facility] [id number] [place] [address] 25009- 9545 Jan, [facility] [id number] [place] [address] 61818- 8228 Jan, Major depression, recurrent F33.9 and Generalized anxiety disorder F41.1 [facility] [id number] [place] [address] 32652- 4574 Jan, Chronic pain G89.29 [facility] [id number] [place] [address] 25481- 1961 Jan, [facility] [id number] [place] [address] 24678- 7143 Jan, [facility] [id number] [place] [address] 55839- 9214 Jan, [facility] [id number] [place] [address] 26166- 5863 Jan, [facility] [id number] [place] [address] 71947- 9285 Jan, Nicotine dependence F17.200 [facility] [id number] [place] [address] 63607- 0003 Jan, Nicotine dependence F17.200 and Back pain M54.9 [facility] [id number] [place] [address] 75049- 9478 Jan, [facility] [id number] [place] [address] 69460- 4757 28 Dec, 2014 [facility] [address] [address]- 7384 25 Dec, 2014 Anxiety, generalized 300.02 and Major depression, recurrent 296.30 [facility] [address], [place] [address]- 3246 24 Dec, 2014 [facility] [id number] [place] [address] 75756- 7432 21 Dec, 2014 [facility] [id number] [place] [address] 06991- 1115 17 Dec, 2014 [facility] [id number] [place] [address] 93729- 9986 15 Dec, 2014 [facility] [id number] [place] [address] 46821- 7420 14 Dec, 2014 [facility] [id number] [place] [address] 02018- 8632 11 Dec, 2014 [facility] [id number] [place] [address] 97053- 7103 10 Dec, 2014 [facility] [id number] [place] [address] 52785- 5351 08 Dec, 2014 Skin tear 879.8 [facility] [address] [address]- 9240 08 Dec, 2014 Routine gynecological examination V72.31 ; Breast cancer screening V76.10 and Family history of breast cancer in first degree relative V16.3 [facility] [address], [place] [address]- 7975 03 Dec, 2014 [facility] [id number] [place] [address] 62291- 3144 Dec, [facility] [address] [address]- 8123 Nov, [facility] [id number] [place] [address] 07421- 6796 Nov, [facility] [address], [place] [address]- 3533 Nov, Poor balance 781.99 and Vascular dementia, uncomplicated 290.40 [facility] [address] [address]- 0434 Nov, [facility] [id number] [place] [address] 18564- 7791 Nov, Major depression, recurrent 296.30 and Anxiety, generalized 300.02 [facility] [id number] [place] [address] 78758- 1255 Nov, [facility] [id number] [place] [address] 39983- 3151 Nov, [facility] [id number] [place] [address] 33013- 7657 Nov, [facility] [id number] [place] [address] 99269- 1150 Nov, [facility] [id number] [place] [address] 13312- 9208 Nov, Vascular dementia, uncomplicated 290.40 and Lumbago 724.2 [facility] [address] [address]- 3774 Nov, [facility] [address] [address]- 8855 Nov, [facility] [address] [address]- 0018 Nov, [facility] [id number] [place] [address] 04375- 9100 Oct, [facility] [id number] [address]- 8595 Oct, [facility] [address], [place] [address]- 9935 Oct, [facility] [address] [address]- 5189 Oct, COPD (chronic obstructive pulmonary disease) 496 and Hyperlipidemia 272.4 [facility] [address] [address]- 3638 Oct, Major depression, recurrent 296.30 and Anxiety, generalized 300.02 [facility] [id number] [address]- 5708 Oct, [facility] [id number] [address]- 5002 Oct, [facility] [id number] [place] [address] 51406- 4751 Oct, [facility] [id number] [place] [address] 78257- 0615 Sep, Lumbago 724.2 and Anxiety state, unspecified 300.00 [facility] [address], [place] [address]- 5798 Sep, [facility] [address] [address]- 8150 Sep, [facility] [address], [place] [address]- 2435 August, [facility] [address], [place] [address]- 7589 August, Major depression, recurrent 296.30 ; Anxiety, generalized 300.02 and No condition on [place] V71.09 [facility] [address], [place] [address]- 8767 August, [facility] [id number] [address]- 7884 August, [facility] [address] [address]- 5917 Jul, [facility] [id number] [address]- 3577 14 Jul, 2014 [facility] [place] [facility] [address] [id number] [place] [address]- 4853 13 Jul, 2014 [facility] [place] [facility] [address] [id number] [place] [address]- 6490 30 Jun, 2014 [facility] [place] [facility] [address] [id number] [place] [address]- 1939 30 Jun, 2014 [facility] [place] [facility] [address] [id number] [place] [address]- 1709 27 Jun, 2014 [facility] [place] [facility] [address] [id number] [place] [address]- 0751 27 Jun, 2014 [facility] [place] [facility] [address] [id number] [place] [address]- 1868 Jun, [facility] [place] [facility] [address] [id number] [place] [address]- 9656 Jun, [facility] [place] [facility] [address] [id number] [place] [address]- 2576 23 Jun, 2014 [facility] [place] [facility] [address] [id number] [place] [address]- 5250 17 Jun, 2014 [facility] [place] [facility] [address] [id number] [place] [address]- 1865 Jun, [facility] [place] [facility] [address] [id number] [place] [address]- 0867 Jun, [facility] [place] [facility] [address] [id number] [place] [address]- 1302 10 Jun, 2014 [facility] [place] [facility] [address] [id number] [place] [address]- 7670 10 Jun, 2014 [facility] [place] [facility] [address] [id number] [place] [address]- 6629 07 Jun, 2014 [facility] [place] [facility] [address] [id number] [place] [address]- 3872 07 Jun, 2014 [facility] [place] [facility] [address] [id number] [place] [address]- 1326 Jun, 2014 [facility] [place] [facility] [address] [id number] [place] [address]- 4840 Jun, [facility] [place] [facility] [address] [id number] [place] [address]- 0116 May, 2014 [facility] [place] [facility] [address] [id number] [place] [address]- 5812 May, 2014 [facility] [place] [facility] [address] [id number] [place] [address]- 5593 May, 2014 [facility] [place] [facility] [address] [id number] [place] [address]- 4606 May, 2014 [facility] [place] [facility] [address] [facility] [id number] [place] [address]- 1876 May, 2014 [facility] [place] [facility] [address] [id number] [place] [address]- 3038 May, 2014 [facility] [place] [facility] [address] [id number] [place] [address]- 1636 May, 2014 [facility] [place] [facility] [address] [facility] [id number] [place] [address]- 9698 May, 2014 [facility] [place] [facility] [address] [facility] [id number] [place] [address]- 5171 May, 2014 [facility] [place] [facility] [address] [id number] [place] [address]- 2541 May, 2014 [facility] [place] [facility] [address] [id number] [place] [address]- 2543 May, 2014 [facility] [place] [facility] [address] [id number] [place] [address]- 7326 May, 2014 [facility] [place] [facility] [address] [facility] [id number] [place] [address]- 2920 May, 2014 [facility] [place] [facility] [address] [facility] [id number] [place] [address]- 0233 May, [facility] [place] [facility] [address] [id number] [place] [address]- 0580 Apr, [facility] [place] [facility] [address] [id number] [place] [address]- 3265 Apr, [facility] [place] [facility] [address] [id number] [place] [address]- 7010 Apr, [facility] [place] [facility] [address] [id number] [place] [address]- 4203 Apr, [facility] [place] [facility] [address] [id number] [place] [address]- 9890 Apr, [facility] [place] [facility] [address] [id number] [place] [address]- 6661 Apr, [facility] [place] [facility] [address] [id number] [place] [address]- 4772 Apr, [facility] [place] [facility] [address] [id number] [place] [address]- 7270 Apr, [facility] [place] [facility] [address] [id number] [place] [address]- 9760 Apr, [facility] [place] [facility] [address] [id number] [place] [address]- 5642 Apr, [facility] [place] [facility] [address] [id number] [place] [address]- 7940 Apr, [facility] [place] [facility] [address] [id number] [place] [address]- 5507 Apr, [facility] [place] [facility] [address] [id number] [place] [address]- 3629 Mar, [facility] [place] [facility] [address] [id number] [place] [address]- 9744 Mar, [facility] [place] [facility] [address] [id number] [place] [address]- 4755 Mar, [facility] [place] [facility] [address] [id number] [place] [address]- 7816 30 Mar, 2014 [facility] [place] [facility] [address] [id number] [place] [address]- 2680 Mar, [facility] [place] [facility] [address] [id number] [place] [address]- 1289 29 Mar, 2014 [facility] [place] [facility] [address] [id number] [place] [address]- 7233 Mar, [facility] [place] [facility] [address] [id number] [place] [address]- 8559 Mar, [facility] [place] [facility] [address] [id number] [place] [address]- 1046 15 Mar, 2014 [facility] [place] [facility] [address] [id number] [place] [address]- 7583 15 Mar, 2014 [facility] [place] [facility] [address] [id number] [place] [address]- 3483 15 Mar, 2014 [facility] [place] [facility] [address] [id number] [place] [address]- 1006 15 Mar, 2014 [facility] [place] [facility] [address] [id number] [place] [address]- 5104 15 Mar, 2014 [facility] [place] [facility] [address] [id number] [place] [address]- 7026 15 Mar, 2014 [facility] [place] [facility] [address] [id number] [place] [address]- 2962 08 Mar, 2014 [facility] [place] [facility] [address] [id number] [place] [address]- 3450 Mar, [facility] [place] [facility] [address] [id number] [place] [address]- 1467 Mar, [facility] [place] [facility] [address] [id number] [place] [address]- 6844 Mar, [facility] [place] [facility] [address] [id number] [address]- 8792 Mar, [facility] [place] [facility] [address] [id number] [place] [address]- 1451 Mar, [facility] [place] [facility] [address] [id number] [place] [address]- 1625 Feb, [facility] [place] [facility] [address] [id number] [place] [address]- 7636 Feb, [facility] [place] [facility] [address] [id number] [place] [address]- 1782 Feb, [facility] [place] [facility] [address] [id number] [place] [address]- 1005 Feb, [facility] [place] [facility] [address] [id number] [place] [address]- 1304 Feb, [facility] [place] [facility] [address] [id number] [place] [address]- 4118 Feb, [facility] [place] [facility] [address] [id number] [place] [address]- 9460 Feb, [facility] [place] [facility] [address] [id number] [place] [address]- 1904 Feb, [facility] [place] [facility] [address] [id number] [place] [address]- 6357 Feb, [facility] [place] [facility] [address] [id number], [place] [address]- 3037 Feb, [facility] [place] [facility] [address] [id number], [place] [address]- 4425 Feb, [facility] [place] [facility] [address] [id number] [place] [address]- 4154 Feb, [facility] [place] [facility] [address] [id number], [place] [address]- 7218 Feb, [facility] [place] [facility] [address] [id number], [place] [address]- 2348 Feb, [facility] [place] [facility] [address] [id number] [place] [address]- 0022 Feb, [facility] [place] [facility] [address] [id number] [place] [address]- 6539 Feb, [facility] [place] [facility] [address] [id number] [place] 4571 Feb, [facility] [place] [facility] [address] [id number] [place] 1491 Jan, [facility] [place] [facility] [address] [id number] [place] [address]- 6217 Jan, [facility] [place] [facility] [address] [id number] [place] [address]- 9567 Jan, [facility] [place] [facility] [address] [id number] [place] [address] Jan, [facility] [place] [facility] [address] [id number] [place] [address] Jan, [facility] [place] [facility] [address] [id number] [place] [address] Jan, [facility] [place] [facility] [address] [id number] [place] [address] Jan, [facility] [place] [facility] [address] [id number] [place] [address] Jan, [facility] [place] [facility] [address] [id number] [place] [address] Jan, [facility] [place] [facility] [address] [id number] [place] [address] Jan, [facility] [place] [facility] [address] [id number] [place] [address] Jan, [facility] [place] [facility] [address] [id number] [place] [address] Dec, [facility] [place] [facility] [address] [id number] [place] [address] Dec, [facility] [place] [facility] [address] [id number] [place] [address] Nov, [facility] [place] [facility] [address] [id number] [place] [address] Nov, [facility] [place] [facility] [address] [id number] [place] [address] Nov, [facility] [place] [facility] [address] [id number] [place] [address] Nov, [facility] [place] [facility] [address] [id number] [place] [address]- [address] Nov, [facility] [place] [facility] [address] [id number] [place] [address] Nov, [facility] [place] [facility] [address] [id number] [place] [address] Nov, [facility] [place] [facility] [address] [id number] [place] [address] Oct, [facility] [place] [facility] [address] [id number] [place] [address] Oct, [facility] [place] [facility] [address] [id number] [place] [address] Oct, [facility] [place] [facility] [address] [id number] [place] [address] Oct, [facility] [place] [facility] [address] [id number] [address] Sep, [facility] [place] [facility] [address] [id number] [place] [address] Sep, [facility] [place] [facility] [address] [id number] [place] [address] Sep, [facility] [place] [facility] [address] [id number] [place] [address] Sep, [facility] [place] [facility] [address] [id number] [place] [address] Sep, [facility] [place] [facility] [address] [id number] [place] [address] Sep, [facility] [place] [facility] [address] [id number] [place] [address] Sep, [facility] [place] [facility] [address] [id number] [place] [address] Sep, [facility] [place] [facility] [address] [id number] [place] [address] Sep, [facility] [place] [facility] [address] [id number] [place] [address]- [address] Sep, [facility] [place] [facility] [address] [id number] [place] [address] Sep, [facility] [place] [facility] [address] [id number] [place] [address] Sep, [facility] [place] [facility] [address] [id number] [place] [address]- [address] Sep, [facility] [place] [facility] [address] [id number] [place] [address] Sep, [facility] [place] [facility] [address] [id number] [place] [address] August, [facility] [place] [facility] [address] [id number] [place] [address] August, [facility] [place] [facility] [address] [id number] [place] [address] August, [facility] [place] [facility] [address] [id number] [place] [address] August, [facility] [place] [facility] [address] [id number] [place] [address] August, [facility] [place] [facility] [address] [id number] [place] [address] August, [facility] [place] [facility] [address] [id number] [place] [address] August, [facility] [address] [id number] [place] [address] August, [facility] [place] [facility] [address] [id number] [place] [address]- 1336 August, [facility] [place] [facility] [address] [id number] [place] [address] August, [facility] [place] [facility] [address] [id number] [place] [address] 39[address] August, [facility] [place] [facility] [address] [id number] [place] [address] August, [facility] [place] [facility] [address] [id number] [place] [address] 2782 August, [facility] [place] [facility] [address] [id number] [place] [address]- 7094 August, [facility] [place] [facility] [address] [id number] [place] [address] 9957 August, [facility] [place] [facility] [address] [id number] [place] [address]- 2816 August, [facility] [place] [facility] [address] [id number] [place] [address]26 August, [facility] [place] [facility] [address] [id number] [place] [address] 4695 August, [facility] [place] [facility] [address] [id number] [place] [address] August, [facility] [place] [facility] [address] [id number] [place] [address]- 4533 Jul, [facility] [place] [facility] [address] [id number] [place] [address]- 8596 Jul, [facility] [place] [facility] [address] [id number] [place] [address]- 6620 08 Jul, 2013 [facility] [place] [facility] [address] [id number] [place] [address]- 5[address] 08 Jul, 2013 [facility] [place] [facility] [address] [id number] [place] [address]- 5162 Jun, [facility] [place] [facility] [address] [id number] [place] [address]- [address]34 Jun, [facility] [place] [facility] [address] [id number] [place] [address]- 2314 Jun, [facility] [place] [facility] [address] [id number] [place] [address]- 9498 24 Jun, 2013 [facility] [place] [facility] [address] [id number] [place] [address]- 3343 Jun, [facility] [place] [facility] [address] [id number] [place] [address]- 7697 Jun, [facility] [place] [facility] [address] [id number] [place] [address]- 9908 Jun, [facility] [place] [facility] [address] [id number] [place] [address]- 0561 Jun, [facility] [place] [facility] [address] [id number] [place] [address]- 4394 Jun, [facility] [place] [facility] [address] [id number] [place] [address]- 9350 Jun, [facility] [place] [facility] [address] [id number], [place] [address] 4673 May, [facility] [place] [facility] [address] [id number] [place] [address]- 4998 May, [facility] [place] [facility] [address] [id number] [place] [address]- 8872 May, [facility] [place] [facility] [address] [id number] [place] [address]- 1434 May, [facility] [place] [facility] [address] [id number] [place] [address]- 0649 May, [facility] [place] [facility] [address] [id number] [place] [address]- 7866 May, [facility] [place] [facility] [address] [id number] [place] [address]- 1826 May, [facility] [place] [facility] [address] [id number] [place] [address]- 5876 May, [facility] [place] [facility] [address] [id number] [place] [address]- 2541 May, [facility] [place] [facility] [address] [id number] [place] [address]- 6746 May, [facility] [place] [facility] [address] [facility] [id number] [place] [address]- 3148 May, [facility] [place] [facility] [address] [facility] [id number] [place] [address]- 4718 17 May, 2013 [facility] [place] [facility] [address] [facility] [id number] [place] [address]- 9503 May, [facility] [place] [facility] [address] [facility] [id number] [place] [address]- 0946 May, [facility] [place] [facility] [address] [id number], [place] [address] 6[address] May, [facility] [place] [facility] [address] [facility] [id number], [place] [address]- 5220 May, [facility] [place] [facility] [address] [facility] [id number] [place] [address]- 2549 May, [facility] [place] [facility] [address] [id number], [place] [address]- 1156 Apr, [facility] [place] [facility] [address] [facility] [id number], [place] [address]- 6739 15 Apr, 2013 [facility] [place] [facility] [address] [facility] [id number], [place] [address]- 8210 Apr, [facility] [address] [id number] [place] [address]- 8740 Apr, [facility] [address] [id number] [place] [address]- 6197 Apr, [facility] [address] [facility] [id number] [place] [address]- 7307 Apr, [facility] [address] [id number] [place] [address]- 7965 Apr, [facility] [address] [id number] [place] [address]- 0400 Mar, [facility] [address] [id number] [place] [address]- 5780 Mar, [facility] [address] [facility] [id number] [place] [address]- 0826 Mar, [facility] [address] [id number] [place] [address]- 7160 Mar, [facility] [address] [id number] [place] [address]- 5676 Mar, [facility] [address] [facility] [id number] [place] [address]- 9655 Mar, [facility] [address] [id number], [place] [address]- 6735 Mar, [facility] [place] [facility] [address] [id number], [place] [address]- 2324 Mar, [facility] [place] [facility] [address] [id number] [place] [address]- 7157 Mar, [facility] [place] [facility] [address] [facility] [id number], [place] [address]- 4225 Mar, [facility] [place] [facility] [address] [facility] [id number], [place] [address]- 4536 Mar, [facility] [place] [facility] [address] [id number] [place] [address]- 3181 22 Feb, 2013 [facility] [place] [facility] [address] [id number] [place] [address]- 2642 22 Feb, 2013 [facility] [place] [facility] [address] [id number] [place] [address]- 4404 20 Feb, 2013 [facility] [place] [facility] [address] [id number] [place] [address]- 3333 20 Feb, 2013 [facility] [place] [facility] [address] [id number] [place] [address]- 8432 19 Feb, 2013 [facility] [place] [facility] [address] [id number] [place] [address]- 8553 19 Feb, 2013 [facility] [place] [facility] [address] [id number] [place] [address]- 8981 15 Feb, 2013 [facility] [place] [facility] [address] [id number] [place] [address]- 9059 14 Feb, 2013 [facility] [place] [facility] [address] [id number] [place] [address]- 7252 14 Feb, 2013 [facility] [place] [facility] [address] [id number] [place] [address]- 7573 13 Feb, 2013 [facility] [place] [facility] [address] [id number] [place] [address]- 1872 13 Feb, 2013 [facility] [place] [facility] [address] [id number] [place] [address]- 2794 12 Feb, 2013 [facility] [place] [facility] [address] [id number] [place] [address]- 6078 12 Feb, 2013 [facility] [place] [facility] [address] [id number] [place] [address]- 3872 11 Feb, 2013 [facility] [place] [facility] [address] [id number] [place] [address]- 6514 05 Feb, 2013 [facility] [place] [facility] [address] [id number] [place] [address]- 6191 Feb, [facility] [place] [facility] [address] [id number] [place] [address]- 7888 Jan, [facility] [place] [facility] [address] [id number] [place] [address]- 3329 Jan, [facility] [place] [facility] [address] [id number] [place] [address]- 4215 Jan, [facility] [place] [facility] [address] [id number] [place] [address]- 5608 Jan, [facility] [place] [facility] [address] [id number] [place] [address]- 0550 Jan, [facility] [place] [facility] [address] [id number] [place] [address]- 8821 Jan, [facility] [place] [facility] [address] [id number] [place] [address]- 5026 Jan, [facility] [place] [facility] [address] [id number], [place] [address]- 6635 10 Jan, 2013 [facility] [place] [facility] [address] [id number] [place] [address]- 5982 10 Jan, 2013 [facility] [place] [facility] [address] [id number], [place] [address]- 3715 27 Dec, 2012 [facility] [place] [facility] [address] [id number], [place] [address]- 0636 20 Dec, 2012 [facility] [place] [facility] [address] [id number], [place] [address]- 0539 19 Sep, 2012 [facility] [place] [facility] [address] [id number] [place] [address]- 5248 10 Dec, 2012 [facility] [place] [facility] [address] [id number], [place] [address]- 0138 04 Sep, 2012 [facility] [place] [facility] [address] [id number], [place] [address]- 8815 03 Sep, 2012 [facility] [place] [facility] [address] [id number] [place] [address]- 0648 Nov, [facility] [place] [facility] [address] [id number] [place] [address]- 3760 Nov, [facility] [place] [facility] [address] [id number] [place] [address]- 4523 Nov, [facility] [place] [facility] [address] [id number] [place] [address]- 3389 Nov, [facility] [place] [facility] [address] [id number] [place] [address]- 4559 Nov, [facility] [place] [facility] [address] [id number] [place] [address]- 1749 Nov, [facility] [place] [facility] [address] [id number] [place] [address]- 6130 Nov, [facility] [place] [facility] [address] [id number] [place] [address]- 7489 Nov, [facility] [place] [facility] [address] [id number] [place] [address]- 7662 Nov, [facility] [place] [facility] [address] [id number] [place] [address]- 5578 Nov, [facility] [place] [facility] [address] [id number] [place] [address]- 4580 Oct, [facility] [place] [facility] [address] [id number] [place] [address]- 4259 Oct, [facility] [place] [facility] [address] [id number] [place] [address]- 0172 Oct, [facility] [place] [facility] [address] [id number] [place] [address]- 0600 Oct, [facility] [place] [facility] [address] [id number] [place] [address]- 6644 Oct, [facility] [place] [facility] [address] [id number] [place] [address]- 1126 Oct, [facility] [place] [facility] [address] [id number] [place] [address]- 6115 Oct, [facility] [address] [id number] [place] [address]- 7651 Oct, [facility] [address] [id number] [place] [address]- 3424 Sep, [facility] [address] [id number] [place] [address]- 4388 Sep, [facility] [address] [id number] [place] [address]- 0919 Sep, [facility] [address] [id number] [place] [address]- 9801 Sep, [facility] [address] [id number] [place] [address]- 8611 Sep, [facility] [address] [id number] [place] [address]- 8038 Sep, [facility] [address] [id number] [place] [address]- 9316 Sep, [facility] [address] [id number] [place] [address]- 4378 Sep, [facility] [address] [id number] [place] [address]- 8866 August, [facility] [place] [facility] [address] [id number] [place] [address]- 0623 August, [facility] [place] [facility] [address] [id number] [place] [address]- 4519 August, [facility] [place] [facility] [address] [id number] [place] [address]- 9079 August, [facility] [place] [facility] [address] [id number] [place] [address]- 8313 August, [facility] [place] [facility] [address] [id number] [place] [address]- 7123 Jul, [facility] [place] [facility] [address] [id number] [place] [address]- 6088 Jul, [facility] [place] [facility] [address] [id number] [place] [address]- 8447 Jul, [facility] [place] [facility] [address] [id number] [place] [address]- 7271 Jul, [facility] [place] [facility] [address] [id number] [place] [address]- 0803 Jul, [facility] [place] [facility] [address] [id number] [place] [address]- 0057 Jun, [facility] [place] [facility] [address] [id number] [place] [address]- 2588 Jun, [facility] [place] [facility] [address] [id number] [place] [address]- 5884 15 Jun, 2012 [facility] [place] [facility] [address] [id number] [place] [address]- 7875 14 Jun, 2012 [facility] [place] [facility] [address] [id number] [place] [address]- 3276 Jun, [facility] [place] [facility] [address] [id number] [place] [address]- 8161 Jun, [facility] [place] [facility] [address] [id number] [place] [address]- 9843 Jun, [facility] [place] [facility] [address] [id number] [place] [address]- 0582 Jun, [facility] [place] [facility] [address] [id number] [place] [address]- 0199 Jun, [facility] [place] [facility] [address] [id number] [place] May, [facility] [place] [facility] [address] [id number] [place] [address]- 0247 May, [facility] [place] [facility] [address] [id number] [place] [address]- 6045 May, [facility] [address] [id number] [place] [address]- 5634 May, [facility] [address] [id number] [place] [address]- 4896 Apr, [facility] [address] [id number] [place] [address]- 8696 Apr, [facility] [address] [id number] [place] [address]- 9625 Apr, [facility] [address] [id number] [place] [address]- 4114 Apr, [facility] [address] [id number] [place] [address]- 1465 Apr, [facility] [address] [id number] [place] [address]- 9395 Apr, [facility] [address] [id number] [place] [address]- 6781 Apr, [facility] [address] [id number] [place] [address]- 5817 Mar, [facility] [address] [place] [id number] Mar, [facility] [address] [id number] [place] [address]- 2519 Mar, [facility] [address] [id number] [place] [address]- 9733 Mar, [facility] [address] [id number] [place] [address]- 1205 Mar, [facility] [address] [id number] [place] [address]- 8539 Mar, [facility] [address] [id number] [place] [address]- 2546 Mar, [facility] [place] [facility] [address] [id number] [place] [address]- 7768 Mar, [facility] [place] [facility] [address] [id number] [place]36 Mar, [facility] [place] [facility] [address] [id number] [place] [address]- 9567 Mar, [facility] [place] [facility] [address] [id number] [place] [address]- 1651 Mar, [facility] [place] [facility] [address] [id number] [place] [address]- 0907 Mar, [facility] [place] [facility] [address] [id number] [place] [address]- 1028 Mar, [facility] [address] [id number] [place] [address]- 2642 Mar, [facility] [place] [facility] [address] [id number] [place] [address]- 0351 Mar, [facility] [place] [facility] [address] [id number] [place] [address]- 5810 Mar, [facility] [place] [facility] [address] [id number] [place] [address]- 7668 Mar, [facility] [place] [facility] [address] [id number] [place] [address]- 6926 Feb, [facility] [place] [facility] [address] [id number] [place] [address]- 8054 Feb, [facility] [place] [facility] [address] [id number] [place] [address]- 0791 Feb, [facility] [place] [facility] [address] [id number] [place] [address]- 1415 Feb, [facility] [place] [facility] [address] [id number] [place] [address]- 1676 Feb, [facility] [place] [facility] [address] [id number], [place] [address]- 2812 Feb, [facility] [place] [facility] [address] [id number] [place] [address]- 2786 Feb, [facility] [place] [facility] [address] [id number] [place] [address]- 2097 Feb, [facility] [place] [facility] [address] [id number] [place] [address]- 7200 Feb, [facility] [place] [facility] [address] [id number] [place] [address]- 3921 Feb, [facility] [place] [facility] [address] [id number] [place] [address]- 5322 Feb, [facility] [place] [facility] [address] [id number] [place] [address]- 4703 Feb, [facility] [place] [facility] [address] [id number] [place] [address]- 9677 Feb, [facility] [place] [facility] [address] [id number] [place] [address]- 8354 Feb, [facility] [place] [facility] [address] [id number], [place] [address]- 1147 Feb, [facility] [place] [facility] [address] [id number] [place] [address]- 7529 Feb, [facility] [place] [facility] [address] [id number], [place] [address]- 5563 Jan, [facility] [place] [facility] [address] [id number], [place] [address]- 5487 Jan, [facility] [place] [facility] [address] [id number], [place] [address]- 3164 Jan, [facility] [place] [facility] [address] [id number] [place] [address]- 9932 Jan, [facility] [place] [facility] [address] [id number] [place] [address]- 2677 Jan, [facility] [place] [facility] [address] [id number] [place] [address]- 4023 Jan, [facility] [place] [facility] [address] [id number] [place] [address]- 5502 Jan, [facility] [place] [facility] [address] [id number] [place] [address]- 2463 Jan, [facility] [place] [facility] [address] [id number] [place] [address]- 1167 Jan, [facility] [place] [facility] [address] [id number] [place] [address]- 4668 Jan, [facility] [place] [facility] [address] [id number] [place] [address] Jan, [facility] [place] [facility] [address] [id number] [place] [address] Jan, [facility] [place] [facility] [address] [id number] [place] [address] Jan, [facility] [place] [facility] [address] [id number] [place] [address] Jan, [facility] [place] [facility] [address] [id number] [place] [address] 08 Jan, 2012 [facility] [place] [facility] [address] [id number] [place] [address] 05 Jan, 2012 [facility] [place] [facility] [address] [id number] [place] [address] 04 Jan, 2012 [facility] [place] [facility] [address] [id number] [place] [address] 21 Dec, 2011 [facility] [place] [facility] [address] [id number] [place] [address] 20 Dec, 2011 [facility] [place] [facility] [address] [id number] [place] [address]70 18 Dec, 2011 [facility] [place] [facility] [address] [id number] [place] [address] 18 Dec, 2011 [facility] [place] [facility] [address] [id number] [place] [address] 10 Dec, 2011 [facility] [place] [facility] [address] [id number] [place] [address] 10 Dec, 2011 [facility] [place] [facility] [address] [id number] [place] [address] 10 Dec, 2011 [facility] [place] [facility] [address] [id number] [place] [address] 07 Dec, 2011 [facility] [place] [facility] [address] [id number] [place] [address]- [address] 30 Nov, 2011 [facility] [place] [facility] [address] [id number] [place] [address] Nov, [facility] [place] [facility] [address] [id number] [place] [address] Nov, [facility] [place] [facility] [address] [id number] [place] [address]- [address] Nov, [facility] [place] [facility] [address] [id number] [place] [address] Nov, [facility] [place] [facility] [address] [id number] [place] [address] Nov, [facility] [place] [facility] [address] [id number] [place] [address] 94[address] Oct, [facility] [place] [facility] [address] [id number] [place] [address] Oct, [facility] [place] [facility] [address] [id number] [place] [address] Oct, [facility] [place] [facility] [address] [id number] [place] [address] Oct, [facility] [place] [facility] [address] [id number] [place] [address] Oct, [facility] [place] [facility] [address] [id number] [place] [address] Oct, [facility] [place] [facility] [address] [id number] [place] [address] Oct, [facility] [place] [facility] [address] [id number] [place] [address] Sep, [facility] [place] [facility] [address] [id number] [place] [address] Sep, [facility] [place] [facility] [address] [id number] [place] [address] Sep, [facility] [place] [facility] [address] [id number] [place] [address] 46[address] Sep, [facility] [place] [facility] [address] [id number] [place] [address] Sep, [facility] [address] [id number] [place] [address] 117[address] 15 Sep, 2011 [facility] [place] [facility] [address] [id number] [place] [address] 14 Sep, 2011 [facility] [place] [facility] [address] [id number] [place] [address] Sep, [facility] [place] [facility] [address] [id number] [place] [address]- [address] 05 Sep, 2011 [facility] [place] [facility] [address] [id number] [place] [address]- [address] 04 Sep, 2011 [facility] [place] [facility] [address] [id number] [place] [address] August, [facility] [place] [facility] [address] [id number] [place] [address] 74[address] August, [facility] [place] [facility] [address] [id number] [place] [address] August, [facility] [place] [facility] [address] [id number] [place] [address] August, [facility] [place] [facility] [address] [id number] [place] [address]- [address] August, [facility] [place] [facility] [address] [id number] [place] [address] Jul, [facility] [place] [facility] [address] [id number] [place] [address] Jul, [facility] [place] [facility] [address] [id number] [place] [address]- [address] Jul, [facility] [place] [facility] [address] [id number] [place] [address]- [address] Jul, [facility] [place] [facility] [address] [id number] [place] [address]- [address] Jul, [facility] [place] [facility] [address] [id number] [place] [address] Jul, [facility] [place] [facility] [address] [id number] [place] [address] Jul, [facility] [place] [facility] [address] [id number] [place] [address] Jun, [facility] [place] [facility] [address] [id number] [place] [address] Jun, [facility] [place] [facility] [address] [id number] [place] [address] Jun, [facility] [place] [facility] [address] [id number] [place] [address]- [address]697 Jun, [facility] [place] [facility] [address] [id number] [place] [address]- [address] Jun, [facility] [place] [facility] [address] [id number] [place] [address] May, [facility] [place] [facility] [address] [id number] [place] [address]- [address] May, [facility] [place] [facility] [address] [id number] [address] May, [facility] [place] [facility] [address] [id number] [place] [address] May, [facility] [place] [facility] [address] [id number] [place] [address] May, [facility] [place] [facility] [address] [facility] [id number] [place] [address] May, [facility] [place] [facility] [address] [id number] [place] [address] Apr, [facility] [place] [facility] [address] [id number] [place] [address] Mar, [facility] [place] [facility] [address] [facility] [id number] [place] [address] Feb, [facility] [place] [facility] [address] [facility] [id number] [place] [address] Feb, [facility] [place] [facility] [address] [facility] [id number] [place] [address] Feb, [facility] [place] [facility] [address] [facility] [id number] [place] [address] Feb, [facility] [place] [facility] [address] [facility] [id number] [place] [address] Jan, [facility] [place] [facility] [address] [facility] [id number] [address] 27 Jan, 2011 [facility] [place] [facility] [address] [facility] [id number], [place] [address] Jan, [facility] [place] [facility] [address] [facility] [id number], [place] [address] 24 Jan, 2011 [facility] [place] [facility] [address] [facility] [id number], [place] [address] 14 Jan, 2011 [facility] [place] [facility] [address] [facility] [id number], [place] [address] 19 Dec, 2010 [facility] [place] [facility] [address] [id number] [place] [address] Oct, [facility] [address] [id number] [place] [address]649 August, [facility] [place] [facility] [address] [id number] [place] [address] 29 Mar, 2010 [facility] [place] [facility] [address] [id number] [place] [address] 2546 27 Mar, 2010 [facility] [place] [facility] [address] [id number] [place] [address] 2544 16 Mar, 2010 [facility] [place] [facility] [address] [id number] [place] [address] 2510 15 Mar, 2010 [facility] [place] [facility] [address] [id number] [place] [address] 15 Mar, 2010 [facility] [place] [facility] [address] [id number] [place] [address] 0416 08 Mar, 2010 [facility] [place] [facility] [address] [id number] [place] [address] 9696 03 Mar, 2010 [facility] [place] [facility] [address] [id number] [place] [address] 7452 24 Feb, 2010 [facility] [place] [facility] [address] [id number] [place] [address] 24 Feb, 2010 [facility] [place] [facility] [address] [id number] [place] [address] 4079 15 Feb, 2010 [facility] [place] [facility] [address] [id number] [place] [address] Jan, [facility] [place] [facility] [address] [id number] [place] [address] 1326 Jan, [facility] [place] [facility] [address] [id number] [place] [address] 9088 Jan, [facility] [place] [facility] [address] [id number] [place] [address] Nov, [facility] [place] [facility] [address] [id number], [place] [address] 14 Sep, 2009 [facility] [place] [facility] [address] [id number] [place] [address] 80[address] August, [facility] [place] [facility] [address] [id number] [place] [address] 30 Mar, 2009 [facility] [place] [facility] [address] [id number], [place] [address] Mar, [facility] [place] [facility] [address] [id number] [place] [address]70 17 Feb, 2009 [facility] [place] [facility] [address] [id number], [place] [address] 10 Feb, 2009 [facility] [place] [facility] [address] [facility] [id number], [place] [address] Feb, [facility] [place] [facility] [address] [id number], [place] [address] 10 Feb, 2009 [facility] [place] [facility] [address] [id number], [place] [address] 06 Feb, 2009 [facility] [place] [facility] [address] [facility] [id number], [place] [address] 1191 27 Jan, 2009 [facility] [place] [facility] [address] [id number], [place] [address] 4[address] 26 Jan, 2009 [facility] [place] [facility] [address] [id number], [place] [address] 20 Jan, 2009 [facility] [place] [facility] [address] [id number], [place] [address] 19 Jan, 2009 [facility] [place] [facility] [address] [id number], [place] [address] 10 Nov, 2008 [facility] [place] [facility] [address] [id number], [place] [address] 16 Sep, 2008 [facility] [place] [facility] [address] [facility] [id number] [place] [address] August, [facility] [address] [facility] [id number] [place] [address] Jul, [facility] [address] [facility] [id number] [place] [id number] May, IMMUNIZATIONS No Known Immunizations SOCIAL HISTORY Never Assessed REASON FOR VISIT Refill request PLAN OF CARE VITAL SIGNS MEDICATIONS Medication Instructions Dosage Frequency Start Date End Date Duration Status Omeprazole 40 mg Orally Once a day 1 capsule 24h Active Trintellix 20 mg Orally Once a day 1 tablet 24h Dec, Active Toprol XL 25 MG Orally Once a day 1 tablet 24h Active Gabapentin 600 MG Orally 3 times a day 1 tablet 8h 90 Active Trazodone HCl 150 MG Orally Once a day 1 tablet at bedtime as needed 24h Dec, Active Primidone 250 mg Orally Three times a day 1 tablet 8h 90 days Active Abilify 20 mg Orally Once a day 1 tablet 24h Jul, Active Imitrex 100 mg Orally Once a day 1 tablet as needed 24h Jan, Active Welchol 3.75 GM Orally Once a day 1 packet mixed with water with a meal 24h Active Trospium Chloride 20 mg Orally Once a day 1 tablet at bedtime on an empty stomach 24h Active RESULTS No Results PROCEDURES No [...] repair 04/2017 Surgical History bladder surgery 06/2017 Surgical History 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
--- OUTSIDE RECORDS SUMMARY | 2017-09-11 08:09 | XMS REPORT ---
Author Author SENAIT DUNLAP [facility] Address [address] [place] [address] Care Team Providers Care Woods Laborer Name Role Phone SENAIT DUNLAP Unavailable PROBLEMS Type Condition ICD9-CM Code XZT30-MN Code Onset Dates Condition Status SNOMED Code Problem History of common bile duct surgery Z98.89 Active 489026579 Problem Barretts esophagus K22.70 Active 365219889 Problem 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 Active 82175753 Problem Colon polyp K63.5 Active 09659315 Problem Bilateral low back pain without sciatica M54.5 Active 002700775 Problem Screening breast examination Z12.39 Active 491203274 Problem Postmenopausal Z78.0 Active 42209113 Problem Osteopenia M85.80 Active 390545189 Problem Cigarette nicotine dependence without complication F17.210 Active 33911392 Problem Type 2 diabetes mellitus with diabetic peripheral angiopathy without gangrene E11.51 Active 902252228 Problem Vascular dementia without behavioral disturbance F01.50 Active [id number] Problem Unspecified atherosclerosis of [place] arteries of extremities, unspecified extremity I70.209 Active 639228244744217 Problem Arthritis M19.90 Active 0161400 Problem Chronic atrial fibrillation I48.2 Active 643190089 Problem Chronic obstructive pulmonary disease with acute lower respiratory infection J44.0 Active 399131448 Problem Other chronic pancreatitis K86.1 Active 643057425 Problem Stress incontinence of urine N39.3 Active 99540707 Problem Controlled type 2 diabetes mellitus without complication, without long -term current use of insulin E11.9 Active 790871471 Problem Unspecified psychosis F29 Active 80441483 Problem Xeroderma Q80.9 Active 27968014 Problem COPD (chronic obstructive pulmonary disease) J44.9 Active 72978008 Problem Dementia without behavioral disturbance, unspecified dementia type F03.90 Active 55649289 Problem Gastroparesis K31.84 Active 972762107 Problem Type 2 diabetes mellitus with diabetic neuropathy, without long-term current use of insulin E11.40 Active 14353611 Problem Osteoporosis M81.0 Active 07690698 Problem Atherosclerosis of [place] artery of both lower extremities with intermittent claudication I70.213 Active 786909967720857 Problem Hyperlipidemia E78.5 Active 90636985 Problem Diabetic polyneuropathy associated with type 2 diabetes mellitus E11.42 Active 73422503 Problem Essential tremor G25.0 Active 79070046 Problem Atherosclerotic heart disease of [place]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 I25.118 Active 1424397884988 Problem Generalized anxiety disorder F41.1 Active 314802760 Problem Gastroesophageal reflux disease, esophagitis presence not specified K21.9 Active 667929235 Problem Coronary artery disease involving [place] coronary artery of [place] 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 I25.118 Active 1077699947877 Problem Postconcussion syndrome F07.81 Active 86941172 Problem Chronic pain syndrome G89.4 Active 444123108 Problem Migraine without aura and without status migrainosus, not intractable G43.009 Active 519852720 Problem Paroxysmal atrial fibrillation I48.0 Active 039849352 Problem Migraine without aura and with status migrainosus, not intractable G43.001 Active 318384100 Problem Cervicalgia M54.2 Active 5605316787218 Problem Acute exacerbation of chronic obstructive pulmonary disease (COPD) J44.1 Active 363472037 Problem Major depressive disorder, recurrent episode, moderate F33.1 Active 021798843 Problem Crohn''s disease without complication, unspecified gastrointestinal tract location K50.90 Active 17925725 Problem Chronic fatigue R53.82 Active 76824119 Problem Bipolar affective disorder, currently depressed, moderate F31.32 Active 209277385 ALLERGIES Substance Reaction Event Type Date Status Penicillin V Potassium rash Drug Allergy Jan, Active Neosporin rash Drug Allergy Jan, Active Ibuprofen rash Drug Allergy Jan, Active Glipizide hives, nausea Drug Allergy Jan, Active ENCOUNTERS Encounter Location Date Diagnosis [facility] [id number] [id number] Oct, [facility] [id number] [address] Sep, [facility] [id number] [address] August, [facility] [id number] [place] [address] 09856- 6525 August, Type 2 diabetes mellitus with diabetic neuropathy, without long-term current use of insulin E11.40 and Elevated liver enzymes R74.8 [facility] [id number] [place] [address] 66161- 9545 Jul, [facility] [address] 53597- 5237 Jul, Cough R05 [facility] [address] 04339- 3582 Jul, [facility] [address] 67738- 2436 Jul, [facility] [address] 77343- 5011 Jul, Bipolar affective disorder, currently depressed, moderate F31.32 ; Vascular dementia without behavioral disturbance F01.50 and Generalized anxiety disorder F41.1 [facility] [id number] [place] [address] 91791- 2160 Jul, [facility] [id number] [place] [address] 83842- 1139 Jul, Type 2 diabetes mellitus with diabetic neuropathy, without long-term current use of insulin E11.40 and Elevated liver enzymes R74.8 [facility] [id number] [place] [address] 49160- 2214 Jul, [facility] [id number] [place] [address] 09567- 7145 Jul, [facility] [address] 69354- 7944 Jul, [facility] [id number] [place] [address] 38522- 9630 Jul, Post-menopausal Z78.0 [facility] [address] [place] [address] 4968 Jul, Stress incontinence of urine N39.3 [facility] [id number] [place] [address] 01690- 5812 Jul, [facility] [id number] [place] [address] 95559- 9205 Jul, [facility] [address] 33018- 3677 Jul, Stress incontinence of urine N39.3 and Cough R05 [facility] [id number] [place] [address] 07873- 6933 Jul, [facility] [address] 28839- 0702 Jul, [facility] [id number] [place] [address] 67618- 9726 Jul, [facility] [address] 28461- 9616 Jul, Gastroesophageal reflux disease, esophagitis presence not specified K21.9 [facility] [id number] [place] [address] 72339- 2681 Jun, Diabetic polyneuropathy associated with type 2 diabetes mellitus E11.42 [place] [id number] [place] [address] 41911- 4324 Jun, Diabetic polyneuropathy associated with type 2 diabetes mellitus E11.42 ; Coronary artery disease involving [place] coronary artery of [place] 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 I25.118 and Paroxysmal atrial fibrillation I48.0 [facility] [id number] [place] [address] 55323- 2082 Jun, [facility] [id number] [place] [address] 04685- 3413 Jun, [facility] [id number] [place] [address] 21586- 6764 Jun, Gastroenteritis K52.9 [place] [id number] [place] [address] 01908- 0639 Jun, Gastroenteritis K52.9 [place] [id number] [place] [address] 73686- 0325 Jun, [facility] [id number] [place] [address] 48055- 3761 Jun, [place] [id number] [place] [address] 03030- 9193 Jun, Sprain of right ankle, unspecified ligament, initial encounter S93.401A ; Type 2 diabetes mellitus with diabetic neuropathy, without long-term current use of insulin E11.40 ; Atherosclerosis of [place] artery of both lower extremities with intermittent claudication I70.213 ; Atherosclerotic heart disease of [place]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 I25.118 ; Chronic atrial fibrillation I48.2 and Crohn''s disease without complication, unspecified gastrointestinal tract location K50.90 [facility] [id number] [place] [address] 18999 -0534 17 Jun, 2017 Cough R05 and Chronic obstructive pulmonary disease with acute lower respiratory infection J44.0 [place] [id number] [place] [address] 29947- 1910 16 Jun, 2017 [place] [id number] [place] [address] 14477- 9971 15 Jun, 2017 Coughing R05 ; Unspecified atherosclerosis of [place] arteries of extremities, unspecified extremity I70.209 ; Type 2 diabetes mellitus with diabetic peripheral angiopathy without gangrene E11.51 ; Crohn''s disease without complication, unspecified gastrointestinal tract location K50.90 ; Other chronic pancreatitis K86.1 and Chronic atrial fibrillation I48.2 [facility] [id number] [place] [address] 94764 -0177 Jun, [facility] [id number] [place] [address] 41923- 7131 06 Jun, 2017 Bipolar affective disorder, currently depressed, moderate F31.32 ; Vascular dementia without behavioral disturbance F01.50 and Generalized anxiety disorder F41.1 [facility] [address], [place] [address] May, Generalized anxiety disorder F41.1 [facility] [id number] [place] [address] 86842- 2794 May, [facility] [id number] [place] [address] 05682- 1735 May, [facility] [id number] [place] [address] 03991- 5165 May, Coughing R05 [facility] [id number] [place] [address] 60027- 5269 May, [facility] [id number] [place] [address] 43510- 8502 May, Bipolar affective disorder, currently depressed, moderate F31.32 ; Vascular dementia without behavioral disturbance F01.50 and Generalized anxiety disorder F41.1 [facility] [id number] [place] [address] 31294- 4656 Apr, Generalized anxiety disorder F41.1 [facility] [id number] [place] [address] 17301- 8583 Apr, [facility] [id number] [place] [address] 69354- 7232 Apr, Vascular dementia without behavioral disturbance F01.50 ; Generalized anxiety disorder F41.1 and Bipolar affective disorder, currently depressed, moderate F31.32 [facility] [address], [place] [address] 2707 Apr, Generalized anxiety disorder F41.1 [facility] [id number] [place] [address] 16832 -9478 Apr, Cough R05 and Acute exacerbation of chronic obstructive pulmonary disease (COPD) J44.1 [facility] [id number] [place] [address] 91072- 8999 Apr, [facility] [id number] [place] [address] 68404 -8565 Mar, Cough R05 and Cigarette nicotine dependence without complication F17.210 [facility] [id number] [place] [address] 61532- 3879 Mar, [facility] [id number] [place] [address] 44630- 3647 Feb, Generalized anxiety disorder F41.1 ; Major depressive disorder, recurrent episode, moderate F33.1 ; Vascular dementia without behavioral disturbance F01.50 and Unspecified psychosis F29 [place] [address] 64057- 6709 Feb, [facility] [id number] [place] [address] 29745- 6193 Feb, [facility] [address] 66743- 6919 Feb, Generalized anxiety disorder F41.1 [place] [id number] [place] [address] 59758- 1260 Feb, Generalized anxiety disorder F41.1 [facility] [id number] [place] [address] 71791- 5346 06 Feb, 2017 Dizziness R42 ; Chronic fatigue R53.82 ; Postconcussion syndrome F07.81 ; Fall, initial encounter W19.XXXA and Disorientation R41.0 [facility] [id number] [place] [address] 64784- 7552 03 Feb, 2017 Postconcussion syndrome F07.81 ; Injury of head, initial encounter S09.90XA ; Fall, initial encounter W19.XXXA ; Disorientation R41.0 and Acute cystitis with hematuria N30.01 [facility] [id number] [place] [address] 30363- 3379 Jan, Gastroesophageal reflux disease, esophagitis presence not specified K21.9 ; Post-menopausal Z78.0 and Migraine without aura and without status migrainosus, not intractable G43.009 [place] [id number] [place] [address] 14087- 7426 Jan, [place] [id number] [place] [address] 33763- 4319 Jan, Generalized anxiety disorder F41.1 ; Major depressive disorder, recurrent episode, moderate F33.1 ; Vascular dementia without behavioral disturbance F01.50 and Unspecified psychosis F29 [place] [id number] [place] [address] 38232- 3977 Jan, Pneumonia of left lower lobe due to infectious organism J18.1 [place] [address] 59271- 7296 Jan, Migraine without aura and with status migrainosus, not intractable G43.001 [facility] [id number] [place] [address] 15752 -4828 Jan, Migraine without aura and without status migrainosus, not intractable G43.009 [place] [id number] [place] [address] 27684- 3775 Dec, Hematoma T14.8 [place] [id number] [place] [address] 76087- 2964 Dec, [facility] [id number] [place] [address] 41726 -5664 Nov, Fatigue, unspecified type R53.83 [place] [id number] [place] [address] 01728- 2477 Nov, Scabies B86 and Coronary artery disease involving [place] coronary artery of [place] 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 I25.118 [place] [id number] [place] [address] 87114- 3146 Nov, [place] [id number] [place] [address] 58789- 6275 Nov, [place] [id number] [place] [address] 80594- 0266 Oct, [facility] [id number] [place] [address] 22766- 0927 Oct, Generalized anxiety disorder F41.1 and Major depressive disorder, recurrent episode, moderate F33.1 [facility] [id number] [place] [address] 65092- 7933 Oct, Cramp of both lower extremities R25.2 [facility] [id number] [place] [address] 94341- 2155 18 Oct, 2016 Leg cramps R25.2 [facility] [id number] [place] [address] 25977- 7904 Oct, Chronic pain syndrome G89.4 [facility] [id number] [place] [address] 16713- 5995 Oct, [facility] [id number] [place] [address] 05850- 7827 14 Oct, 2016 [facility] [id number] [place] [address] 10873- 3237 Oct, Routine gynecological examination Z01.419 and Screening for breast cancer Z12.31 [facility] [address] [place] [address] 36008- 7188 Sep, Diarrhea R19.7 [facility] [id number] [place] [address] 66870- 6739 Sep, Back pain M54.9 [facility] [address] [place] [address] 46779- 6681 Sep, [facility] [id number] [place] [address] 00354- 4547 Sep, [facility] [address] [place] [address] 53713 -7352 August, Xeroderma Q80.9 [facility] [id number] [place] [address] 91090- 8738 August, Dementia without behavioral disturbance, unspecified dementia type F03.90 [place] [address] 57243- 4057 August, Chronic pain syndrome G89.4 [place] [address] 57761- 0365 August, [place] [address] 74604- 1376 August, Hyperlipidemia E78.5 ; Other fatigue R53.83 and Other specified hypotension I95.89 [facility] [address] 71843 -1643 August, Dysuria R30.0 ; Other fatigue R53.83 and Other specified hypotension I95.89 [place] [address] 09753- 4355 August, [place] [address] 38573- 0768 Jul, Pain in left knee M25.562 and Gastroenteritis K52.9 [place] [address] 82123- 2131 Jul, [place] [address] 57425- 1079 Jul, Diarrhea R19.7 [facility] [place] [address] 46555 -6809 Jul, Spider bite, accidental or unintentional, initial encounter T63.301A [place] [address] 19043- 1071 Jul, Primary osteoarthritis of right knee M17.11 and Arthritis M19.90 [place] [address] 42785- 9233 Jul, Generalized anxiety disorder F41.1 and Major depressive disorder, recurrent episode, moderate F33.1 [facility] [id number] [place] [address] 93690- 9320 07 Jul, 2016 Type 2 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 and Temporal headache R51 [facility] [id number] [place] [address] 06128- 1949 06 Jul, 2016 Back pain M54.9 [place] [address] 93520- 0890 05 Jul, 2016 [place] [address] 87765- 2333 Jul, [place] [address] 30769- 9036 30 Jun, 2016 Nausea R11.0 [facility] [place] [address] 46535 -1035 23 Jun, 2016 Acute suppurative otitis media of both ears without spontaneous rupture of tympanic membranes, recurrence not specified H66.003 and COPD exacerbation J44.1 [place] [address] 41487- 7999 21 Jun, 2016 Generalized anxiety disorder F41.1 [place] [address] 88469- 2291 16 Jun, 2016 [facility] [place] [id number] [place] [address] 14143 -3364 Jun, [facility] [address] 76694 -3075 13 Jun, 2016 Shortness of breath R06.02 and COPD exacerbation J44.1 [place] [address] 25261- 7729 10 Jun, 2016 Eczema, unspecified type L30.9 [place] [address] 09956- 7648 09 Jun, 2016 [place] [address] 85399- 1551 May, [place] [id number] [place] [address] 77330- 4431 May, Muscle cramping R25.2 [place] [id number] [place] [address] 94810- 1598 May, [place] [address] 07917- 5865 Apr, Diarrhea R19.7 [place] [id number] [place] [address] 74103- 6638 Apr, [place] [address] 70839- 7560 Apr, Chronic pain syndrome G89.4 [place] [id number] [place] [address] 95837- 6988 Apr, Cramp of both lower extremities R25.2 and Vascular dementia without behavioral disturbance F01.50 [place] [id number] [place] [address] 65741- 5520 Apr, Type 2 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 and Cigarette nicotine dependence without complication F17.210 [place] [id number] [place] [address] 17786- 6351 Mar, Generalized anxiety disorder F41.1 [place] [id number] [place] [address] 90191- 0431 Feb, Generalized anxiety disorder F41.1 and Major depressive disorder, recurrent episode, moderate F33.1 [place] [id number] [place] [address] 95744- 3598 Feb, [facility] [id number] [place] [address] 95471 -5942 Feb, Dysuria R30.0 and Acute cystitis with hematuria N30.01 [place] [id number] [place] [address] 33273- 9557 Jan, [facility] [id number] [place] [address] 26900- 8715 Jan, [facility] [id number] [place] [address] 42238- 6854 Jan, [facility] [id number] [place] [address] 87089- 1211 Jan, [facility] [address] 44793 -9144 10 Jan, 2016 Wasp sting, accidental or unintentional, initial encounter T63.461A [place] [address] 91476- 3601 06 Jan, 2016 Encounter for immunization Z23 [facility] [id number] [place] [address] 90464- 5278 05 Jan, 2016 [facility] [id number] [place] [address] 45408- 7300 Jan, [facility] [id number] [place] [address] 07884- 1905 28 Dec, 2015 Generalized anxiety disorder F41.1 and Major depressive disorder, recurrent episode, moderate F33.1 [facility] [id number] [place] [address] 90624- 1707 21 Dec, 2015 Routine gynecological examination Z01.419 ; Postmenopausal Z78.0 ; Screening breast examination Z12.39 ; Osteopenia M85.80 and Breast cancer screening Z12.39 [facility] [id number] [place] [address] 00825- 4655 Dec, [facility] [id number] [place] [address] 16961- 8256 19 Dec, 2015 [facility] [id number] [place] [address] 67363- 3828 16 Dec, 2015 [facility] [id number] [place] [address] 61740- 4905 16 Dec, 2015 [facility] [address] [facility] [id number] [address]- 8058 14 Dec, 2015 [facility] [id number] [address]- 9591 Dec, [facility] [id number] [place] [address]- 6152 Nov, [facility] [id number] [place] [address] -6074 Nov, Cough R05 ; Other viral agents as the cause of diseases classified elsewhere B97.89 and Acute upper respiratory infection, unspecified J06.9 [facility] [id number] [place] [address]- 6629 Nov, [facility] [address] [id number] [address] 4[address] Nov, [facility] [address], [place] [address] 2695 Nov, [facility] [id number] [place] [address] 6869 Nov, [facility] [address], [place] [address] 4454 Nov, [facility] [id number] [place] [address]- 4353 Oct, [facility] [address], [place] [address] 3446 Oct, [facility] [address], [place] [address] 6250 Oct, [facility] [address], [place] [address] 2101 Oct, Chronic pain syndrome G89.4 [facility] [id number] [address] 8620 Sep, Generalized anxiety disorder F41.1 and Major depressive disorder, recurrent episode, moderate F33.1 [facility] [id number] [place] [address] 80279- 7546 Sep, [facility] [id number] [place] [address] 81765- 0081 Sep, [facility] [id number] [place] [address] 21151- 0409 14 Sep, 2015 Generalized anxiety disorder F41.1 [place] [id number] [place] [address] 07273- 9926 13 Sep, 2015 Cramp of both lower extremities R25.2 and Cervicalgia M54.2 [place] [id number] [place] [address] 79935- 6143 06 Sep, 2015 Generalized anxiety disorder F41.1 [place] [id number] [place] [address] 62583- 9880 Sep, [facility] [id number] [place] [address] 26840 -1753 August, Rash R21 ; Itching L29.9 and Allergic response, subsequent encounter T78.40XD [place] [id number] [place] [address] 78836- 2507 August, Primary insomnia F51.01 [facility] [id number] [place] [address] 90038 -1132 August, Rash R21 ; Itching L29.9 and Allergic response, initial encounter T78.40XA [place] [id number] [place] [address] 70830- 8472 August, [facility] [id number] [place] [address] 39788- 5552 August, Cramp of both lower extremities R25.2 [facility] [id number] [place] [address] 19321- 8259 August, Back pain M54.9 [place] [address] [place] [address]- 2651 August, [facility] [address], [place] [address]- 7059 August, [facility] [id number], [place] [address] August, Cramp of both lower extremities R25.2 [facility] [address], [place] [address] 7624 August, [facility] [address], [place] [address] 3001 August, Syncope R55 ; Paroxysmal atrial fibrillation I48.0 ; Dementia without behavioral disturbance, unspecified dementia type F03.90 and Chronic pain syndrome G89.4 [facility] [address], [place] [address] 3279 August, Type 2 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 and Syncope R55 [facility] [address], [place] [address]- 5429 Jul, [facility] [address], [place] [address]- 6113 Jul, [facility] [address], [place] [address]- 4815 Jul, [facility] [address], [place] [address]- 0943 Jul, [facility] [address], [place] [address]- 8401 Jul, [facility] [address], [place] [address]- 2526 Jul, UTI (urinary tract infection) N39.0 [facility] [address], [place] [address]- 6430 Jul, [facility] [address], [place] [address]- 7465 Jul, Major depressive disorder, recurrent episode, moderate F33.1 and Generalized anxiety disorder F41.1 [facility] [id number] [place] [address] 85785- 5190 14 Jul, 2015 Generalized anxiety disorder F41.1 [facility] [id number] [place] [address] 39706- 9700 14 Jul, 2015 Diarrhea R19.7 [facility] [id number] [place] [address] 21894- 8628 14 Jul, 2015 [facility] [id number] [place] [address] 19658- 4039 Jun, [facility] [id number] [place] [address] 62754- 0481 Jun, Eczema L30.9 [facility] [id number] [place] [address] 29439- 8105 Jun, [facility] [id number] [place] [address] 73909- 9859 Jun, COPD (chronic obstructive pulmonary disease) J44.9 [facility] [id number] [place] [address] 66525- 8834 Jun, [facility] [id number] [place] [address] 83115- 0148 Jun, Major depressive disorder, recurrent episode, moderate F33.1 and Generalized anxiety disorder F41.1 [facility] [address], [place] [address]- 5133 May, [facility] [id number] [place] [address] 29907- 8152 May, UTI (urinary tract infection) N39.0 [facility] [address], [place] [address]- 1421 17 May, 2015 [facility] [id number] [place] [address] 05196- 2286 May, [facility] [address], [place] [address]- 4730 May, [facility] [address], [place] [address]- 0881 May, [facility] [address], [place] [address]- 7703 Apr, Major depressive disorder, recurrent episode, moderate F33.1 and Generalized anxiety disorder F41.1 [facility] [address], [place] [address]- 6497 Apr, COPD (chronic obstructive pulmonary disease) J44.9 [facility] [id number] [place] [address] 19007- 0117 Apr, [facility] [id number] [place] [address] 30199- 8586 Apr, Atrial flutter I48.92 [facility] [address], [place] [address]- 7028 Apr, [facility] [id number] [place] [address] 23506- 4452 Apr, [facility] [address], [place] [address]- 8500 Mar, [facility] [address], [place] [address]- 4863 Mar, [facility] [address], [place] [address]- 1813 Mar, [facility] [address], [place] [address]- 0664 Mar, Hyperlipidemia E78.5 ; Type 2 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 ; Major depressive disorder, recurrent episode, moderate F33.1 and Chronic pain syndrome G89.4 [facility] [address], [place] [address]- 1780 Mar, [facility] [address] [facility] [id number], [place] [address]- 4343 Mar, [facility] [address] [facility] [id number], [place] [address]- 4920 Mar, [facility] [address] [facility] [id number], [place] [address]- 2008 Mar, [facility] [address] [facility] [id number] [place] [address] 83252- 4093 Feb, COPD (chronic obstructive pulmonary disease) J44.9 and Back pain M54.9 [facility] [address] [facility] [id number] [place] [address] 35225- 6652 Feb, [facility] [address] [facility] [id number], [place] [address]- 7764 Feb, [facility] [id number] [place] [address] 24843- 9777 Feb, [facility] [address] [facility] [id number], [place] [address]- 9751 Feb, [facility] [address], [place] [address]- 2504 Feb, [facility] [address], [place] [address]- 5125 Feb, [facility] [address], [place] [address]- 0577 Feb, [facility] [address] [facility] [id number], [place] [address]- 4111 Feb, [facility] [address] [id number], [place] [address]- 9449 Feb, Diabetes E11.9 ; Back pain M54.9 and COPD (chronic obstructive pulmonary disease) J44.9 [facility] [address] [facility] [id number], [place] [address]- 3199 Jan, [facility] [address], [place] [address]- 1382 Jan, Major depression, recurrent F33.9 and Generalized anxiety disorder F41.1 [facility] [id number] [place] [address] 23186- 0295 Jan, Chronic pain G89.29 [facility] [address], [place] [address]- 1584 Jan, [facility] [id number] [place] [address] 55642- 2700 Jan, [facility] [id number] [place] [address] 39086- 2440 Jan, [facility] [id number] [place] [address] 64581- 1717 Jan, [facility] [id number] [place] [address] 37601- 5362 Jan, Nicotine dependence F17.200 [facility] [id number] [place] [address] 81375- 5661 Jan, Nicotine dependence F17.200 and Back pain M54.9 [facility] [id number] [place] [address] 77164- 1674 Jan, [facility] [id number] [place] [address] 94640- 0600 28 Dec, 2014 [facility] [id number] [place] [address] 25553- 9198 25 Dec, 2014 Anxiety, generalized 300.02 and Major depression, recurrent 296.30 [facility] [id number] [place] [address] 33812- 4708 24 Dec, 2014 [facility] [id number] [place] [address] 18119- 7020 21 Dec, 2014 [facility] [address], [place] [address]- 8700 17 Dec, 2014 [facility] [id number] [place] [address] 02595- 0883 15 Dec, 2014 [facility] [id number] [place] [address] 44109- 7927 14 Dec, 2014 [facility] [id number] [place] [address] 03434- 8904 11 Dec, 2014 [facility] [id number] [place] [address] 62417- 4009 10 Dec, 2014 [facility] [id number] [place] [address] 93500- 6681 08 Dec, 2014 Skin tear 879.8 [facility] [id number] [place] [address] 10119- 5471 08 Dec, 2014 Routine gynecological examination V72.31 ; Breast cancer screening V76.10 and Family history of breast cancer in first degree relative V16.3 [facility] [id number] [place] [address] 29604- 5919 Dec, [facility] [id number] [place] [address] 74515- 2740 Dec, [facility] [id number] [place] [address] 03483- 9035 Nov, [facility] [id number] [place] [address] 26935- 1899 Nov, [facility] [id number] [place] [address] 10702- 8650 Nov, Poor balance 781.99 and Vascular dementia, uncomplicated 290.40 [facility] [id number] [place] [address] 30382- 1563 Nov, [facility] [id number] [place] [address] 13466- 1275 Nov, Major depression, recurrent 296.30 and Anxiety, generalized 300.02 [facility] [id number] [place] [address] 26039- 4257 Nov, [facility] [address], [place] [address]- 9486 Nov, [facility] [address], [place] [address]- 7265 Nov, [facility] [address], [place] [address]- 6325 Nov, [facility] [id number] [place] [address] 20928- 3334 Nov, Vascular dementia, uncomplicated 290.40 and Lumbago 724.2 [facility] [id number] [place] [address] 19038- 7747 Nov, [facility] [id number], [place] [address]- 4080 Nov, [facility] [id number] [place] [address] 10018- 6214 Nov, [facility] [address], [place] [address]- 0689 Oct, [facility] [address], [place] [address]- 2964 Oct, [facility] [address], [place] [address]- 6999 Oct, [facility] [address], [place] [address]- 5831 Oct, COPD (chronic obstructive pulmonary disease) 496 and Hyperlipidemia 272.4 [facility] [address], [place] [address]- 8642 Oct, Major depression, recurrent 296.30 and Anxiety, generalized 300.02 [facility] [address], [place] [address]- 5241 Oct, [facility] [address], [place] [address]- 2865 Oct, [facility] [address], [place] [address]- 2581 Oct, [facility] [id number] [place] [address] 80076- 7439 Sep, Lumbago 724.2 and Anxiety state, unspecified 300.00 [facility] [id number] [place] [address] 37358- 9551 Sep, [facility] [id number] [place] [address] 24155- 8154 Sep, [facility] [id number] [place] [address] 04252- 5416 August, [facility] [id number] [place] [address] 87370- 8768 August, Major depression, recurrent 296.30 ; Anxiety, generalized 300.02 and No condition on [place] II V71.09 [facility] [id number] [place] [address] 81096- 3006 August, [facility] [address], [place] [address]- 0077 August, [facility] [address], [place] [address]- 0769 Jul, [facility] [address], [place] [address]- 0397 Jul, [facility] [address], [place] [address]- 5523 Jul, [facility] [address], [place] [address]- 0181 Jun, [facility] [id number] [address]- 8733 Jun, [facility] [address] 1645 Jun, [facility] [id number] [address]- 1831 27 Jun, 2014 [facility] [place] [facility] [address] [id number] [place] [address]- 3459 26 Jun, 2014 [facility] [place] [facility] [address] [id number] [place] [address]- 8280 Jun, [facility] [place] [facility] [address] [id number] [place] [address]- 7765 23 Jun, 2014 [facility] [place] [facility] [address] [id number] [place] [address]- 9892 17 Jun, 2014 [facility] [place] [facility] [address] [id number] [place] [address]- 9836 Jun, [facility] [place] [facility] [address] [id number] [place] [address]- 2548 13 Jun, 2014 [facility] [place] [facility] [address] [id number] [place] [address]- 1929 Jun, [facility] [place] [facility] [address] [id number] [place] [address]- 5961 10 Jun, 2014 [facility] [place] [facility] [address] [id number] [place] [address]- 3819 Jun, [facility] [place] [facility] [address] [id number] [place] [address]- 9400 Jun, [facility] [place] [facility] [address] [id number] [place] [address]- 1454 Jun, [facility] [place] [facility] [address] [id number] [place] [address]- 1336 Jun, [facility] [place] [facility] [address] [id number] [place] [address]- 2566 May, [facility] [place] [facility] [address] [id number] [place] [address]- 8756 May, [facility] [place] [facility] [address] [id number] [place] [address]- 3087 May, [facility] [place] [facility] [address] [id number] [place] [address]- 6796 May, 2014 [facility] [place] [facility] [address] [id number] [place] [address]- 3696 May, 2014 [facility] [place] [facility] [address] [id number] [place] [address]- 6772 May, 2014 [facility] [place] [facility] [address] [id number] [place] [address]- 3582 May, 2014 [facility] [place] [facility] [address] [id number] [place] [address]- 2320 May, 2014 [facility] [place] [facility] [address] [id number] [place] [address]- 5737 May, 2014 [facility] [place] [facility] [address] [facility] [id number] [place] [address]- 4575 May, 2014 [facility] [place] [facility] [address] [id number] [place] [address]- 5389 May, 2014 [facility] [place] [facility] [address] [id number] [place] [address]- 1158 May, 2014 [facility] [place] [facility] [address] [facility] [id number] [place] [address]- 8629 May, [facility] [place] [facility] [address] [facility] [id number] [place] [address]- 7886 May, [facility] [place] [facility] [address] [id number], [place] [address]- 5132 Apr, [facility] [place] [facility] [address] [id number] [place] [address]- 8315 Apr, [facility] [place] [facility] [address] [id number] [place] [address]- 0881 Apr, [facility] [place] [facility] [address] [facility] [id number] [place] [address]- 7648 Apr, [facility] [place] [facility] [address] [id number] [place] [address]- 6172 Apr, [facility] [place] [facility] [address] [id number] [place] [address]- 7787 Apr, [facility] [place] [facility] [address] [id number] [place] [address]- 0104 Apr, [facility] [place] [facility] [address] [id number] [place] [address]- 3724 Apr, [facility] [place] [facility] [address] [id number] [place] [address]- 1512 Apr, [facility] [place] [facility] [address] [id number] [place] [address]- 5169 Apr, [facility] [place] [facility] [address] [id number] [place] [address]- 5619 Apr, [facility] [place] [facility] [address] [id number] [place] [address]- 4277 Apr, [facility] [place] [facility] [address] [id number] [place] [address]- 9413 Mar, [facility] [place] [facility] [address] [id number] [place] [address]- 2238 Mar, [facility] [place] [facility] [address] [facility] [id number] [place] [address]- 6698 30 Mar, 2014 [facility] [place] [facility] [address] [id number] [place] [address]- 3684 30 Mar, 2014 [facility] [place] [facility] [address] [id number] [place] [address]- 8012 29 Mar, 2014 [facility] [place] [facility] [address] [id number] [place] [address]- 2896 Mar, [facility] [place] [facility] [address] [id number] [place] [address]- 6542 Mar, [facility] [place] [facility] [address] [id number] [place] [address] Mar, [facility] [place] [facility] [address] [id number] [place] [address] Mar, [facility] [place] [facility] [address] [id number] [place] [address] Mar, [facility] [place] [facility] [address] [id number] [place] [address] Mar, [facility] [place] [facility] [address] [id number] [place] [address] Mar, [facility] [place] [facility] [address] [id number] [place] [address] Mar, [facility] [place] [facility] [address] [id number] [place] [address] Mar, [facility] [place] [facility] [address] [id number] [place] [address] Mar, [facility] [place] [facility] [address] [id number] [place] [address] Mar, [facility] [place] [facility] [address] [id number] [place] [address] Mar, [facility] [place] [facility] [address] [id number] [place] [address] Mar, [facility] [place] [facility] [address] [id number] [place] [address] Mar, [facility] [place] [facility] [address] [id number] [place] [address] Mar, [facility] [place] [facility] [address] [id number] [place] [address] Feb, [facility] [place] [facility] [address] [id number] [place] [address] Feb, [facility] [place] [facility] [address] [id number] [place] [address] Feb, [facility] [place] [facility] [address] [id number] [place] [address] Feb, [facility] [place] [facility] [address] [id number] [place] [address] 113[address] Feb, [facility] [place] [facility] [address] [id number] [place] [address] Feb, [facility] [place] [facility] [address] [id number] [place] [address] Feb, [facility] [place] [facility] [address] [id number] [place] [address] Feb, [facility] [place] [facility] [address] [id number] [place] [address] Feb, [facility] [place] [facility] [address] [id number] [place] [address] Feb, [facility] [place] [facility] [address] [id number] [place] [address] Feb, [facility] [place] [facility] [address] [id number] [place] [address] Feb, [facility] [place] [facility] [address] [id number] [place] [address] 275[address] Feb, [facility] [place] [facility] [address] [id number] [place] [address] 67[address] Feb, [facility] [place] [facility] [address] [id number], [place] [address] Feb, [facility] [place] [facility] [address] [id number], [place] [address] Feb, [facility] [place] [facility] [address] [id number] [place] [address] Feb, [facility] [place] [facility] [address] [id number] [place] [address] Jan, [facility] [place] [facility] [address] [id number] [place] [address] Jan, [facility] [place] [facility] [address] [id number] [place] [address] 160[address] Jan, [facility] [place] [facility] [address] [id number] [place] [address] Jan, [facility] [place] [facility] [address] [id number] [place] [address] 265[address] Jan, [facility] [place] [facility] [address] [id number] [place] [address] Jan, [facility] [place] [facility] [address] [id number] [place] [address] Jan, [facility] [place] [facility] [address] [id number] [place] [address] 48[address] Jan, [facility] [place] [facility] [address] [id number] [place] [address] Jan, [facility] [place] [facility] [address] [id number] [place] [address] Jan, [facility] [place] [facility] [address] [id number] [place] [address] Jan, [facility] [place] [facility] [address] [id number] [place] [address] Dec, [facility] [place] [facility] [address] [id number] [place] [address] Dec, [facility] [place] [facility] [address] [id number] [place] [address] Nov, [facility] [place] [facility] [address] [id number] [place] [address]14 Nov, [facility] [place] [facility] [address] [id number] [place] [address] Nov, [facility] [place] [facility] [address] [id number] [place] [address] Nov, [facility] [place] [facility] [address] [id number] [place] [address] Nov, [facility] [place] [facility] [address] [id number] [place] [address] Nov, [facility] [place] [facility] [address] [id number] [place] [address] Nov, [facility] [place] [facility] [address] [id number] [place] [address] Oct, [facility] [place] [facility] [address] [id number] [place] [address] 97[address] Oct, [facility] [place] [facility] [address] [id number] [place] [address] 3[address] Oct, [facility] [place] [facility] [address] [id number] [place] [address] 0971 Oct, [facility] [place] [facility] [address] [id number] [place] [address] 1990 Sep, [facility] [place] [facility] [address] [id number] [place] [address] 9265 Sep, [facility] [place] [facility] [address] [id number] [place] [address] 8737 Sep, [facility] [place] [facility] [address] [id number] [place] [address] 3397 Sep, [facility] [place] [facility] [address] [id number] [place] [address] 3523 Sep, [facility] [place] [facility] [address] [id number] [place] [address] 3961 Sep, [facility] [place] [facility] [address] [id number] [place] [address] 4694 Sep, [facility] [place] [facility] [address] [id number] [place] [address] 2036 Sep, [facility] [place] [facility] [address] [id number] [place] [address] 6369 Sep, [facility] [place] [facility] [address] [id number], [place] [address] Sep, [facility] [place] [facility] [address] [id number] [place] [address] 1235 Sep, [facility] [place] [facility] [address] [id number] [place] [address] 8300 Sep, [facility] [place] [facility] [address] [id number] [place] [address]- 5060 Sep, [facility] [place] [facility] [address] [id number] [place] [address]- 8304 Sep, [facility] [place] [facility] [address] [id number] [place] [address]- 9993 August, [facility] [place] [facility] [address] [id number] [place] [address]- 8189 August, [facility] [place] [facility] [address] [id number] [place] [address] 3377 August, [facility] [place] [facility] [address] [id number] [place] [address]- 0539 August, [facility] [place] [facility] [address] [id number] [place] [address]- 3256 August, [facility] [place] [facility] [address] [id number] [place] [address] 3888 August, [facility] [place] [facility] [address] [id number] [place] [address]- 3691 August, [facility] [place] [facility] [address] [id number] [place] [address]- 8393 August, [facility] [place] [facility] [address] [id number] [place] [address]- 1142 August, [facility] [place] [facility] [address] [id number] [place] [address]- 7162 August, [facility] [place] [facility] [address] [id number] [place] [address]- 6746 August, [facility] [place] [facility] [address] [id number] [place] [address]- 5383 August, [facility] [place] [facility] [address] [id number] [place] [address]- 9973 August, [facility] [place] [facility] [address] [id number] [place] [address]- 5116 August, [facility] [place] [facility] [address] [id number] [place] [address]- 5455 August, [facility] [place] [facility] [address] [id number] [place] [address]- 8858 August, [facility] [place] [facility] [address] [id number] [place] [address]- 3499 August, [facility] [place] [facility] [address] [id number] [place] [address]- 5820 August, [facility] [place] [facility] [address] [id number] [place] [address]- 4606 August, [facility] [place] [facility] [address] [id number] [place] [address]- 1205 Jul, [facility] [place] [facility] [address] [id number] [place] [address]- 0779 Jul, [facility] [place] [facility] [address] [id number] [place] [address] 9580 Jul, [facility] [place] [facility] [address] [id number] [place] [address]- 2289 Jul, [facility] [place] [facility] [address] [id number] [place] [address] 2154 Jun, [facility] [place] [facility] [address] [id number] [place] [address]- 3481 Jun, [facility] [place] [facility] [address] [id number] [place] [address]- 1375 Jun, [facility] [place] [facility] [address] [id number] [place] [address]- 8330 24 Jun, 2013 [facility] [place] [facility] [address] [id number] [place] [address]- 8967 17 Jun, 2013 [facility] [place] [facility] [address] [id number] [place] [address]- 2535 17 Jun, 2013 [facility] [place] [facility] [address] [facility] [id number] [place] [address]- 6248 14 Jun, 2013 [facility] [place] [facility] [address] [id number] [place] [address]- 9019 14 Jun, 2013 [facility] [place] [facility] [address] [id number] [place] [address]- 5052 Jun, [facility] [place] [facility] [address] [id number] [place] [address]- 3178 Jun, [facility] [place] [facility] [address] [facility] [id number] [place] [address]- 3918 May, [facility] [place] [facility] [address] [id number] [place] [address]- 3678 May, [facility] [place] [facility] [address] [facility] [id number] [place] [address]- 0827 May, [facility] [place] [facility] [address] [facility] [id number] [place] [address]- 7422 May, [facility] [place] [facility] [address] [facility] [id number] [place] [address]- 4881 May, [facility] [place] [facility] [address] [facility] [id number] [place] [address]- 1962 May, [facility] [place] [facility] [address] [facility] [id number] [place] [address]- 1690 20 May, 2013 [facility] [place] [facility] [address] [facility] [id number] [place] [address]- 9234 May, [facility] [place] [facility] [address] [facility] [id number] [place] [address]- 2095 May, [facility] [place] [facility] [address] [id number] [place] [address]- 7909 18 May, 2013 [facility] [place] [facility] [address] [id number] [place] [address]- 7156 May, [facility] [place] [facility] [address] [id number] [place] [address]- 0456 17 May, 2013 [facility] [place] [facility] [address] [id number] [place] [address]- 4926 May, [facility] [place] [facility] [address] [id number] [place] [address]- 4935 May, [facility] [place] [facility] [address] [id number] [place] [address]- 0656 May, [facility] [place] [facility] [address] [id number] [place] [address]- 3743 May, [facility] [place] [facility] [address] [id number] [place] [address]- 2223 May, [facility] [place] [facility] [address] [id number] [place] [address]- 3442 Apr, [facility] [place] [facility] [address] [id number] [place] [address]- 5699 Apr, [facility] [place] [facility] [address] [id number] [place] [address]- 7427 Apr, [facility] [place] [facility] [address] [id number], [place] [address]- 7956 Apr, [facility] [place] [facility] [address] [id number] [place] [address]- 9924 Apr, [facility] [place] [facility] [address] [id number] [place] [address]- 5929 Apr, [facility] [place] [facility] [address] [id number] [place] [address]- 5360 Apr, [facility] [place] [facility] [address] [id number] [place] [address]- 1324 Mar, [facility] [address] [id number] [place] [address]- 2849 Mar, [facility] [address] [id number] [place] [address]- 7936 Mar, [facility] [address] [id number] [place] [address]- 1453 Mar, [facility] [address] [id number] [place] [address]- 8019 Mar, [facility] [address] [id number] [place] [address]- 0540 Mar, [facility] [address] [id number] [place] [address]- 5602 Mar, [facility] [address] [id number] [place] [address]- 7125 Mar, [facility] [address] [id number] [place] [address]- 8668 Mar, [facility] [address] [id number] [place] [address]- 2919 Mar, [facility] [address] [id number] [place] [address]- 8350 Mar, [facility] [address] [id number] [place] [address]- 8838 Feb, [facility] [place] [facility] [address] [id number], [place] [address]- 1562 Feb, [facility] [place] [facility] [address] [id number], [place] [address]- 9432 Feb, [facility] [place] [facility] [address] [id number], [place] [address]- 6103 Feb, [facility] [place] [facility] [address] [id number], [place] [address]- 3846 Feb, [facility] [place] [facility] [address] [id number] [place] [address]- 2221 19 Feb, 2013 [facility] [place] [facility] [address] [id number] [place] [address]- 3076 15 Feb, 2013 [facility] [place] [facility] [address] [id number] [place] [address]- 6073 14 Feb, 2013 [facility] [place] [facility] [address] [id number] [place] [address]- 0765 14 Feb, 2013 [facility] [place] [facility] [address] [id number] [place] [address]- 8229 13 Feb, 2013 [facility] [place] [facility] [address] [id number] [place] [address]- 3230 Feb, [facility] [place] [facility] [address] [id number] [place] [address]- 8966 Feb, [facility] [place] [facility] [address] [id number] [place] [address]- 9310 Feb, [facility] [place] [facility] [address] [id number] [place] [address]- 5930 Feb, [facility] [place] [facility] [address] [id number] [place] [address]- 2989 Feb, [facility] [place] [facility] [address] [id number] [place] [address]- 2538 Feb, [facility] [place] [facility] [address] [id number] [place] [address]- 9688 Jan, [facility] [place] [facility] [address] [id number] [place] [address]- 8277 Jan, [facility] [place] [facility] [address] [id number] [place] [address]- 5841 Jan, [facility] [place] [facility] [address] [id number] [place] [address]- 4982 Jan, [facility] [place] [facility] [address] [id number] [place] [address]- 3930 Jan, [facility] [place] [facility] [address] [id number] [place] [address]- 0753 Jan, [facility] [place] [facility] [address] [id number] [place] [address]- 9796 Jan, [facility] [place] [facility] [address] [id number] [place] [address]- 0256 Jan, [facility] [place] [facility] [address] [id number] [place] [address]- 7983 10 Jan, 2013 [facility] [place] [facility] [address] [id number] [place] [address]- 9909 27 Dec, 2012 [facility] [place] [facility] [address] [id number] [place] [address]- 8253 20 Dec, 2012 [facility] [place] [facility] [address] [id number] [place] [address]- 8551 19 Dec, 2012 [facility] [place] [facility] [address] [id number], [place] [address]- 2806 10 Dec, 2012 [facility] [place] [facility] [address] [id number] [place] [address]- 3928 04 Dec, 2012 [facility] [place] [facility] [address] [id number] [place] [address]- 9644 03 Dec, 2012 [facility] [place] [facility] [address] [id number], [place] [address]- 3730 Nov, [facility] [place] [facility] [address] [id number], [place] [address]- 7732 Nov, [facility] [place] [facility] [address] [id number] [place] [address]- 8038 Nov, [facility] [place] [facility] [address] [id number], [place] [address]- 3898 Nov, [facility] [place] [facility] [address] [id number] [place] [address]- 4602 Nov, [facility] [place] [facility] [address] [id number] [place] [address]- 4588 Nov, [facility] [place] [facility] [address] [id number] [place] [address]- 9959 Nov, [facility] [place] [facility] [address] [id number] [place] [address]- 6310 Nov, [facility] [place] [facility] [address] [id number] [place] [address]- 4338 Nov, [facility] [place] [facility] [address] [id number] [place] [address]- 5630 Nov, [facility] [place] [facility] [address] [id number] [place] [address]- 4115 Oct, [facility] [place] [facility] [address] [id number] [place] [address]- 9365 Oct, [facility] [place] [facility] [address] [id number] [place] [address]- 7090 Oct, [facility] [place] [facility] [address] [id number] [place] [address]- 6933 Oct, [facility] [place] [facility] [address] [id number] [place] [address]- 1889 Oct, [facility] [place] [facility] [address] [id number] [place] [address]- 2451 Oct, [facility] [place] [facility] [address] [id number] [place] [address]- 9781 Oct, [facility] [place] [facility] [address] [id number] [place] [address]- 7957 Oct, [facility] [place] [facility] [address] [id number] [place] [address]- 5267 Sep, [facility] [place] [facility] [address] [id number] [place] [id number] [address]591 Sep, [facility] [place] [facility] [address] [id number] [place] [address]- 0087 Sep, [facility] [place] [facility] [address] [id number] [place] [address]- 6392 Sep, [facility] [address] [id number] [place] [address]- 6430 Sep, [facility] [address] [id number] [place] [address]- 9683 Sep, [facility] [address] [id number] [place] [address]- 0097 Sep, [facility] [address] [id number] [place] [address]- 8243 Sep, [facility] [address] [id number] [place] [address]- 1787 August, [facility] [address] [id number] [place] [address]- 8616 August, [facility] [address] [id number] [place] [address]- 2113 August, [facility] [address] [id number] [place] [address]- 7198 August, [facility] [address] [id number] [place] [address]- 6380 August, [facility] [address] [id number] [place] [address]- 1563 Jul, [facility] [address] [id number] [place] [address]- 1022 Jul, [facility] [address] [id number] [place] [address]- 1432 Jul, [facility] [place] [facility] [address] [id number] [place] [address]- 4388 Jul, [facility] [address] [id number] [place] [address]- 1568 Jul, [facility] [address] [id number], [place] [address]- 5666 18 Jun, 2012 [facility] [address] [id number] [place] [address]- 9084 18 Jun, 2012 [facility] [address] [id number] [place] [address]- 5043 15 Jun, 2012 [facility] [address] [id number] [place] [address]- 2927 14 Jun, 2012 [facility] [address] [id number] [place] [address]- 4466 Jun, [facility] [address] [id number] [place] [address]- 6194 08 Jun, 2012 [facility] [address] [id number] [place] [address]- 6532 08 Jun, 2012 [facility] [address] [id number] [place] [address]- 5550 Jun, [facility] [address] [id number] [place] [address]- 3071 Jun, [facility] [address] [id number] [place] [address]- 7386 27 May, 2012 [facility] [address] [id number] [place] [address]- 7945 May, [facility] [address] [id number], [place] [address]- 2754 May, [facility] [place] [facility] [address] [id number], [place] [address]- 0376 May, [facility] [place] [facility] [address] [id number] [place] [address]- 5733 Apr, [facility] [place] [facility] [address] [id number], [place] [address]- 1891 Apr, [facility] [place] [facility] [address] [id number], [place] [address]- 8128 Apr, [facility] [place] [facility] [address] [id number] [place] [address]- 9328 Apr, [facility] [address] [id number] [place] [address]- 2682 Apr, [facility] [address] [id number] [place] [address]- 8490 Apr, [facility] [address] [id number] [place] [address]- 2284 Apr, [facility] [address] [id number] [place] [address]- 2792 Mar, [facility] [place] [id number] Mar, [facility] [address] [id number] [place] [address]- 3081 Mar, [facility] [address] [id number] [place] [address]- 9799 Mar, [facility] [address] [id number] [place] [address]- 9268 Mar, [facility] [address] [id number] [place] [address]- 5720 Mar, [facility] [address] [id number] [place] [address]- 9251 Mar, [facility] [address] [id number] [place] [address] 2546 Mar, [facility] [address] [id number] [place] [address]- 3931 Mar, [facility] [address] [id number] [place] [address]- 2936 Mar, [facility] [address] [id number] [place] [address]- 7010 Mar, [facility] [address] [id number] [place] [address]- 5414 Mar, [facility] [place] [facility] [address] [id number] [place] [address]- 8056 Mar, [facility] [place] [facility] [address] [id number] [place] [address]- 5286 Mar, [facility] [place] [facility] [address] [id number] [place] [address]- 4441 Mar, [facility] [place] [facility] [address] [id number] [place] [address]- 0290 Mar, [facility] [place] [facility] [address] [id number] [place] 8444 Mar, [facility] [place] [facility] [address] [id number] [place] [address]- 4988 Feb, [facility] [place] [facility] [address] [id number] [place] [address]- 5484 Feb, [facility] [place] [facility] [address] [id number] [place] [address]- 8562 Feb, [facility] [place] [facility] [address] [id number] [place] [address]- 5243 Feb, [facility] [place] [facility] [address] [id number] [place] [address]- 0662 Feb, [facility] [place] [facility] [address] [id number] [place] [address]- 7171 Feb, [facility] [place] [facility] [address] [id number], [place] [address]- 1741 Feb, [facility] [place] [facility] [address] [id number] [place] [address]- 7936 Feb, [facility] [place] [facility] [address] [id number] [place] [address]- 8920 Feb, [facility] [place] [facility] [address] [id number] [place] [address] Feb, [facility] [place] [facility] [address] [id number], [place] [address] Feb, [facility] [place] [facility] [address] [id number] [place] [address] Feb, [facility] [place] [facility] [address] [id number] [address] [address] Feb, [facility] [place] [facility] [address] [facility] [id number] [place] [address] Feb, [facility] [place] [facility] [address] [id number] [place] [address] Feb, [facility] [place] [facility] [address] [id number] [place] [address] Feb, [facility] [place] [facility] [address] [id number] [place] [address] Jan, [facility] [place] [facility] [address] [facility] [id number], [place] [address] Jan, [facility] [place] [facility] [address] [id number] [place] [address] Jan, [facility] [place] [facility] [address] [id number], [place] [address] Jan, [facility] [place] [facility] [address] [facility] [id number], [place] [address] Jan, [facility] [place] [facility] [address] [id number], [place] [address] Jan, [facility] [place] [facility] [address] [facility] [id number], [place] [address] Jan, [facility] [place] [facility] [address] [id number], [place] [address] Jan, [facility] [place] [facility] [address] [facility] [id number], [place] [address] Jan, [facility] [place] [facility] [address] [facility] [id number] [place] [address] Jan, [facility] [place] [facility] [address] [id number] [place] [address]- [address] 12 Jan, 2012 [facility] [place] [facility] [address] [id number] [place] [address] Jan, [facility] [place] [facility] [address] [id number] [place] [address] Jan, [facility] [place] [facility] [address] [id number] [place] [address] 83[address] Jan, [facility] [place] [facility] [address] [id number] [place] [address] 08 Jan, 2012 [facility] [place] [facility] [address] [id number] [place] [address] 05 Jan, 2012 [facility] [place] [facility] [address] [id number] [place] [address]- [address] 04 Jan, 2012 [facility] [place] [facility] [address] [id number] [place] [address] 21 Dec, 2011 [facility] [place] [facility] [address] [id number] [place] [address] 20 Dec, 2011 [facility] [place] [facility] [address] [id number] [place] [address] 479[address] 18 Dec, 2011 [facility] [place] [facility] [address] [id number] [place] [address] 18 Dec, 2011 [facility] [place] [facility] [address] [id number] [place] [address]- [address]46 10 Dec, 2011 [facility] [place] [facility] [address] [id number] [place] [address] 2546 10 Dec, 2011 [facility] [place] [facility] [address] [id number] [place] [address] 2546 10 Dec, 2011 [facility] [place] [facility] [address] [id number] [place] [address] 07 Dec, 2011 [facility] [place] [facility] [address] [id number] [place] [address]237 Nov, [facility] [place] [facility] [address] [id number] [place] [address] 59[address] Nov, [facility] [place] [facility] [address] [id number] [place] [address] Nov, [facility] [place] [facility] [address] [id number] [place] [address] 39[address] Nov, [facility] [place] [facility] [address] [id number] [place] [address] 49[address] Nov, [facility] [place] [facility] [address] [id number] [place] [address] 1640 Nov, [facility] [place] [facility] [address] [id number] [place] [address] 64[address] Oct, [facility] [place] [facility] [address] [id number] [place] [address] Oct, [facility] [place] [facility] [address] [id number] [place] [address]181 Oct, [facility] [place] [facility] [address] [id number] [place] [address]13 Oct, [facility] [place] [facility] [address] [id number] [place] [address]- 1745 Oct, [facility] [place] [facility] [address] [id number] [place] [address] 68[address] Oct, [facility] [place] [facility] [address] [id number] [place] [address] 2936 Oct, [facility] [place] [facility] [address] [id number] [place] [address] 6[address] Sep, [facility] [place] [facility] [address] [id number] [place] [address]- [address] Sep, [facility] [place] [facility] [address] [id number] [place] [address] 95[address] Sep, [facility] [place] [facility] [address] [id number] [place] [address] 7899 20 Sep, 2011 [facility] [place] [facility] [address] [id number] [place] [address]169 19 Sep, 2011 [facility] [place] [facility] [address] [id number] [place] [address]- [address] 15 Sep, 2011 [facility] [place] [facility] [address] [id number] [place] [address]597 14 Sep, 2011 [facility] [place] [facility] [address] [id number] [place] [address]- 6424 11 Sep, 2011 [facility] [place] [facility] [address] [id number] [place] [address]- [address] 05 Sep, 2011 [facility] [place] [facility] [address] [id number] [place] [address]- 8386 04 Sep, 2011 [facility] [place] [facility] [address] [id number] [place] [address] August, [facility] [place] [facility] [address] [id number] [place] [address]362 August, [facility] [place] [facility] [address] [id number] [place] [address] 97[address] August, [facility] [place] [facility] [address] [id number] [place] [address] August, [facility] [place] [facility] [address] [id number] [place] [address] 3318 August, [facility] [place] [facility] [address] [id number] [place] [address] 150[address] Jul, [facility] [place] [facility] [address] [id number] [place] [address] Jul, [facility] [place] [facility] [address] [id number] [place] [address] 386[address] Jul, [facility] [place] [facility] [address] [id number] [place] [address]- [address] 17 Jul, 2011 [facility] [place] [facility] [address] [id number] [place] [address]- [address] Jul, [facility] [place] [facility] [address] [id number] [place] [address]- 24[address] Jul, [facility] [place] [facility] [address] [id number] [place] [address] 2546 Jul, [facility] [place] [facility] [address] [id number] [place] [address] Jun, [facility] [place] [facility] [address] [id number] [place] [address] Jun, [facility] [place] [facility] [address] [id number] [place] [address] Jun, [facility] [place] [facility] [address] [id number] [place] [address] Jun, [facility] [place] [facility] [address] [id number] [place] [address] Jun, [facility] [place] [facility] [address] [id number] [place] [address] May, [facility] [place] [facility] [address] [id number] [place] [address] May, [facility] [place] [facility] [address] [id number] [place] [address] May, [facility] [place] [facility] [address] [id number] [place] [address] May, [facility] [place] [facility] [address] [id number] [place] [address] May, [facility] [place] [facility] [address] [id number] [place] [address] May, [facility] [place] [facility] [address] [facility] [id number] [place] [address] Apr, [facility] [place] [facility] [address] [id number], [place] [address] 29 Mar, 2011 [facility] [place] [facility] [address] [id number] [place] [address] Feb, [facility] [place] [facility] [address] [id number] [place] [address] Feb, [facility] [place] [facility] [address] [facility] [id number] [place] [address] Feb, [facility] [place] [facility] [address] [id number] [place] [address] 39[address] Feb, [facility] [place] [facility] [address] [id number] [place] [address], [place] [address] Jan, [facility] [place] [facility] [address] [id number] [place] [address] Jan, [facility] [place] [facility] [address] [facility] [id number] [place] [address], [place] [address] Jan, [facility] [place] [facility] [address] [id number] [place] [address] 24 Jan, 2011 [facility] [place] [facility] [address] [facility] [id number] [place] [address] 14 Jan, 2011 [facility] [place] [facility] [address] [facility] [id number] [place] [address] Dec, [facility] [place] [facility] [address] [id number], [place] [address] Oct, [facility] [place] [facility] [address] [id number], [place] [address] August, [facility] [place] [facility] [address] [id number] [place] [address] 29 Mar, 2010 [facility] [place] [facility] [address] [facility] [id number] [place] [address] 1733 27 Mar, 2010 [facility] [place] [facility] [address] [facility] [id number] [place] [address] 16 Mar, 2010 [facility] [place] [facility] [address] [id number] [place] [address] 6[address] 15 Mar, 2010 [facility] [place] [facility] [address] [id number] [place] [address] 37[address] 15 Mar, 2010 [facility] [place] [facility] [address] [id number] [place] [address] 2546 08 Mar, 2010 [facility] [place] [facility] [address] [id number] [place] [address] 2546 Mar, [facility] [place] [facility] [address] [id number] [place] [address] 9268 Feb, [facility] [place] [facility] [address] [id number] [place] [address] Feb, [facility] [place] [facility] [address] [id number] [place] [address] 6224 Feb, [facility] [place] [facility] [address] [id number] [place] [address] 7678 Jan, [facility] [place] [facility] [address] [id number] [place] [address] Jan, [facility] [place] [facility] [address] [id number] [place] [address] 1357 Jan, [facility] [place] [facility] [address] [id number] [place] [address] Nov, [facility] [place] [facility] [address] [id number] [place] [address]97 14 Sep, 2009 [facility] [place] [facility] [address] [id number] [place] [address] August, [facility] [place] [facility] [address] [id number] [place] [address] 30 Mar, 2009 [facility] [place] [facility] [address] [id number] [place] [address] 07 Mar, 2009 [facility] [place] [facility] [address] [id number] [place] [address] Feb, [facility] [id number], [place] [address] Feb, [facility] [id number] [place] [address] Feb, [facility] [id number] [place] [address]- 244[address] Feb, [facility] [id number] [place] [address]- 2310 Feb, [facility] [id number] [place] [address]15476- 1767 Jan, [facility] [id number] [place] [address]- 46[address] Jan, [facility] [id number] [place] [address]- 5485 Jan, [facility] [id number] [place] [address]- 3950 Jan, [facility] [id number], [place] [address] Nov, [facility] [id number] [place] [address]- 9399 Sep, [facility] [id number], [place] [address] August, [facility] [id number], [place] [address] Jul, [facility] [id number], [place] [address] May, IMMUNIZATIONS Vaccine Route Administration Date Status TORADOL (IM) 60 MG/2ML (UP TO 15 MG) IM Intramuscular Jan 09, 2017 Administered SOCIAL HISTORY Never Assessed REASON FOR VISIT Migraine--Rosalba Cox MA PLAN OF CARE VITAL SIGNS Height 64 in 2017-01-09 Weight 167.6 lbs 2017-01-09 Temperature 98.5 degrees Fahrenheit 2017-01-09 Heart Rate 88 bpm 2017-01-09 Respiratory Rate 20 2017-01-09 BMI 28.77 kg/m2 2017-01-09 Blood pressure systolic 138 mmHg 2017-01-09 Blood pressure diastolic 72 mmHg 2017-01-09 MEDICATIONS Medication Instructions Dosage Frequency Start Date End Date Duration Status Omeprazole 40 MG Orally Once a day 1 capsule 24h Active Trintellix 20 MG Orally Once a day 1 tablet 24h Dec, 30 days Active Xanax 0.5 MG Orally Three times a day 1 tablet 8h Mar, 30 days Active Benefiber - Active Baclofen 20 MG Orally 3 times a day 1 tablet with food or milk 8h May, Mar, 30 day(s) Active Morphine Sulfate ER 30 MG Orally every 12 hrs 1 tablet 12h Jan, Active Ambien 5 MG Orally Once a day 1 tablet at bedtime 24h Jul, 30 days Active Topamax 25 MG Orally Twice a day 1 AM, 2 hs 12h Active Aricept 10 MG TAKE 1 TABLET ONE TIME DAILY 90 Active Baclofen 10 TAKE ONE TABLET BY MOUTH TWICE A DAY WITH FOOD OR MILK 30 Active Toprol XL 25 MG Orally Once a day 1 tablet 24h Active Namenda 10 MG TAKE 1 TABLET ONE TIME DAILY 90 Active Xolair 150 mg inject 1.2 milliliters (150 mg) by subcutaneous route every 4 weeks Sep, Active Oxygen 5 inhalation all the time Active Tiotropium [place] Monohydrate 18 MCG Inhalation Once a day 1 capsule 24h Active Abilify 5 MG Orally Once a day 1 tablet 24h Oct, 30 day(s) Active Albuterol Sulfate 2.5 mg /3 mL (0.083 %) 1 Each by Inhalation route every 4 hours for cough and wheeze PRN for wheezing or cough Jun, Active Alendronate Sodium 70 MG TAKE 1 TABLET EVERY WEEK 84 Active Zofran ODT 4 MG Orally every 4 hrs 1 tablet on the tongue and allow to dissolve 4h Jul, 1 days Active Cetirizine HCl 10 MG Orally Once a day 1 tablet as needed 24h Active Ropinirole HCl 2 MG TAKE 1 TABLET ONE TIME DAILY AT BEDTIME 90 Active Fluorouracil 5 % Externally Twice a day 1 application to affected area 12h Active Ventolin HFA 108 (90 Base) MCG/ACT INHALE 2 PUFFS EVERY 4 HOURS NEEDED 16 Active Gabapentin 600 MG TAKE 1 TABLET THREE TIMES DAILY (CHANGE IN DIRECTIONS) 90 Active Primidone 250mg Orally Three times a day 1 tablet 8h Active Betamethasone Dipropionate 0.05 % Externally twice a day 1 application to affected area 12h Active Lomotil 2.5-0.025 mg Orally Four times a day TWO TABLETS 6h 30 Active Imitrex 100 mg Orally Once a day 1 tablet as needed 24h 04 Jan, 2017 Active Symbicort 160-4.5 MCG/ACT INHALE 2 PUFFS TWICE DAILY, IN THE MORNING AND IN THE EVENING 90 Active Trospium Chloride 20 MG Orally Once a day 1 tablet at bedtime on an empty stomach 24h Active Benzonatate 100 mg Orally every eight hours as needed for cough 1 capsule as needed Active Trazodone HCl 150 MG Orally Once a day 1 tablet at bedtime as needed 24h 28 Dec, 2015 30 days Active Myrbetriq 50 MG Orally Once a day 1 tablet 24h Active HydrOXYzine HCl 25 MG Orally three times a day 1 tablet as needed 8h 30 days Active Welchol 3.75 GM Orally Once a day 1 packet mixed with water with a meal 24h Active Botox 200 UNIT Active Abilify 20 MG Orally Once a day 1 tablet 24h Jul, 30 days Active Ondansetron 4 MG Orally every 8 hrs 1 tablet on the tongue and allow to dissolve 8h Active Singulair 10 MG Orally Once a day take 1 tablet (10 mg) by oral route once daily in the evening 24h Oct, Active Fluticasone Propionate 50 MCG/ACT Nasally 2 times a day 2 sprays in each nostril 12h Active Prednisone Active Eliquis 5 MG Orally 2 times a day 12h Active Simvastatin 20mg Orally Once a day 1 tablet in the evening 24h Active Nitroglycerin 0.4 MG Active RESULTS No Results PROCEDURES Procedure Date Ordered Result Body Site [facility] VISIT ESTABLISHED PATIENT Jan 09, 2017 THER/PROPH/DIAG INJ, SC/IM Jan 09, 2017 TORADOL (IM) 60 MG/2ML (UP TO 15 MG) Jan 09, 2017 INSTRUCTIONS MEDICATIONS ADMINISTERED No Known Medications MEDICAL [...]
--- OUTSIDE RECORDS SUMMARY | 2017-09-11 08:11 | XMS REPORT ---
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 Active 27383184 Problem Colon polyp K63.5 Active 17382643 Problem Bilateral low back pain without sciatica M54.5 Active 734017964 Problem Screening breast examination Z12.39 Active 496247755 Problem Postmenopausal Z78.0 Active 24586761 Problem Osteopenia M85.80 Active 233965385 Problem Cigarette nicotine dependence without complication F17.210 Active 45775140 Problem Type 2 diabetes mellitus with diabetic peripheral angiopathy without gangrene E11.51 Active 177136893 Problem Vascular dementia without behavioral disturbance F01.50 Active [id number] Problem Unspecified atherosclerosis of [place] arteries of extremities, unspecified extremity I70.209 Active 008997884139841 Problem Arthritis M19.90 Active 7971408 Problem Chronic atrial fibrillation I48.2 Active 181017908 Problem Chronic obstructive pulmonary disease with acute lower respiratory infection J44.0 Active 061739549 Problem Other chronic pancreatitis K86.1 Active 218952079 Problem Stress incontinence of urine N39.3 Active 77063914 Problem Controlled type 2 diabetes mellitus without complication, without long -term current use of insulin E11.9 Active 312141397 Problem Unspecified psychosis F29 Active 21418685 Problem Xeroderma Q80.9 Active 19237068 Problem COPD (chronic obstructive pulmonary disease) J44.9 Active 62809194 Problem Dementia without behavioral disturbance, unspecified dementia type F03.90 Active 70021547 Problem Gastroparesis K31.84 Active 475330764 Problem Type 2 diabetes mellitus with diabetic neuropathy, without long-term current use of insulin E11.40 Active 23681149 Problem Osteoporosis M81.0 Active 70176017 Problem Atherosclerosis of [place] artery of both lower extremities with intermittent claudication I70.213 Active 062076405029109 Problem Hyperlipidemia E78.5 Active 17459649 Problem Diabetic polyneuropathy associated with type 2 diabetes mellitus E11.42 Active 19087572 Problem Essential tremor G25.0 Active 30511697 Problem Atherosclerotic heart disease of [place]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 I25.118 Active 5683880512760 Problem Generalized anxiety disorder F41.1 Active 377055976 Problem Gastroesophageal reflux disease, esophagitis presence not specified K21.9 Active 699339419 Problem Coronary artery disease involving [place] coronary artery of [place] 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 I25.118 Active 2921386567589 Problem Postconcussion syndrome F07.81 Active 11218205 Problem Chronic pain syndrome G89.4 Active 067579901 Problem Migraine without aura and without status migrainosus, not intractable G43.009 Active 009819705 Problem Paroxysmal atrial fibrillation I48.0 Active 462718581 Problem Migraine without aura and with status migrainosus, not intractable G43.001 Active 174914388 Problem Cervicalgia M54.2 Active 3772712874668 Problem Acute exacerbation of chronic obstructive pulmonary disease (COPD) J44.1 Active 315189519 Problem Major depressive disorder, recurrent episode, moderate F33.1 Active 118496993 Problem Crohn''s disease without complication, unspecified gastrointestinal tract location K50.90 Active 34993963 Problem Chronic fatigue R53.82 Active 60644016 Problem Bipolar affective disorder, currently depressed, moderate F31.32 Active 981302654 ALLERGIES Substance Reaction Event Type Date Status Penicillin V Potassium rash Drug Allergy Nov, Active Neosporin rash Drug Allergy Nov, Active Ibuprofen rash Drug Allergy Nov, Active Glipizide hives, nausea Drug Allergy Nov, Active ENCOUNTERS Encounter Location Date Diagnosis [facility] [id number] [address] Oct, [facility] [id number] [address] Jul, [facility] [id number] [place] [address] 59922- 1616 Jul, [facility] [id number] [place] [address] 57914- 9624 Jul, Bipolar affective disorder, currently depressed, moderate F31.32 ; Vascular dementia without behavioral disturbance F01.50 and Generalized anxiety disorder F41.1 [facility] [id number] [place] [address] 13913- 1661 Jul, [facility] [address] 01712- 0973 Jul, Type 2 diabetes mellitus with diabetic neuropathy, without long-term current use of insulin E11.40 and Elevated liver enzymes R74.8 [address] [place] 63791- 0484 Jul, [place] [id number] [place] [address] 55759- 7445 Jul, [facility] [address] 50677- 9512 Jul, [facility] [id number] [place] [address] 03431- 5439 Jul, Post-menopausal Z78.0 [facility] [id number] [place] [address] 90815- 1784 Jul, Stress incontinence of urine N39.3 [facility] [id number] [place] [address] 18369- 7957 Jul, [facility] [id number] [place] [address] 40489- 7210 Jul, [facility] [id number] [place] [address] 60016- 8990 Jul, Stress incontinence of urine N39.3 and Cough R05 [facility] [id number] [place] [address] 05239- 1953 Jul, [facility] [id number] [place] [address] 46448- 1011 Jul, [facility] [id number] [place] [address] 68951- 6558 Jul, [facility] [id number] [place] [address] Jul, Gastroesophageal reflux disease, esophagitis presence not specified K21.9 [facility] [id number] [place] [address] 04623- 6486 Jun, Diabetic polyneuropathy associated with type 2 diabetes mellitus E11.42 [facility] [id number] [place] [address] 52940- 8643 Jun, Diabetic polyneuropathy associated with type 2 diabetes mellitus E11.42 ; Coronary artery disease involving chick[place] ind[place] coronary artery of [place] 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 I25.118 and Paroxysmal atrial fibrillation I48.0 [facility] [id number] [place] [address] 53945- 0252 Jun, [facility] [id number] [place] [address] 76328- 7199 Jun, [facility] [id number] [place] [address] 28991- 5337 Jun, Gastroenteritis K52.9 [facility] [id number] [place] [address] 79425- 8178 Jun, Gastroenteritis K52.9 [facility] [id number] [place] [address] 99987- 5360 Jun, [facility] [id number] [place] [address] 59501- 1535 Jun, [facility] [id number] [place] [address] 19024- 2586 Jun, Sprain of right ankle, unspecified ligament, initial encounter S93.401A ; Type 2 diabetes mellitus with diabetic neuropathy, without long-term current use of insulin E11.40 ; Atherosclerosis of [place] artery of both lower extremities with intermittent claudication I70.213 ; Atherosclerotic heart disease of chick[place]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 I25.118 ; Chronic atrial fibrillation I48.2 and Crohn''s disease without complication, unspecified gastrointestinal tract location K50.90 [facility] [id number] [place] [address] 88139 -8717 17 Jun, 2017 Cough R05 and Chronic obstructive pulmonary disease with acute lower respiratory infection J44.0 [place] [id number] [place] [address] 04273- 7347 Jun, [address] [place] [id number] [place] [address] 35709- 8428 Jun, Coughing R05 ; Unspecified atherosclerosis of [place] arteries of extremities, unspecified extremity I70.209 ; Type 2 diabetes mellitus with diabetic peripheral angiopathy without gangrene E11.51 ; Crohn''s disease without complication, unspecified gastrointestinal tract location K50.90 ; Other chronic pancreatitis K86.1 and Chronic atrial fibrillation I48.2 [facility] [id number] [place] [address] 76196 -1084 Jun, [address] [id number] [place] [address] 15406- 0237 Jun, Bipolar affective disorder, currently depressed, moderate F31.32 ; Vascular dementia without behavioral disturbance F01.50 and Generalized anxiety disorder F41.1 [address] [id number] [place] [address] 62459- 9644 May, Generalized anxiety disorder F41.1 [address] [id number] [place] [address] 34320- 3278 May, [address] [id number] [place] [address] 18621- 8879 May, [address] [id number] [place] [address] 36991- 9308 15 May, 2017 Coughing R05 [address] [id number] [place] [address] 55249- 8334 May, [facility] [id number] [place] [address] 79023- 6911 May, Bipolar affective disorder, currently depressed, moderate F31.32 ; Vascular dementia without behavioral disturbance F01.50 and Generalized anxiety disorder F41.1 [place] [id number] [place] [address] 26254- 5559 Apr, Generalized anxiety disorder F41.1 [place] [address] 41528- 5259 Apr, [place] [id number] [place] [address] 59689- 5714 Apr, Vascular dementia without behavioral disturbance F01.50 ; Generalized anxiety disorder F41.1 and Bipolar affective disorder, currently depressed, moderate F31.32 [address] [id number] [place] [address] 30033- 3584 Apr, Generalized anxiety disorder F41.1 [facility] [id number] [place] [address] 91521 -7239 Apr, Cough R05 and Acute exacerbation of chronic obstructive pulmonary disease (COPD) J44.1 [place] [id number] [place] [address] 50540- 3988 Apr, [facility] [id number] [place] [address] 29360 -5435 Mar, Cough R05 and Cigarette nicotine dependence without complication F17.210 [address] [place] [id number] [place] [address] 66661- 3941 Mar, [address] [place] [address] 65599- 4464 Feb, Generalized anxiety disorder F41.1 ; Major depressive disorder, recurrent episode, moderate F33.1 ; Vascular dementia without behavioral disturbance F01.50 and Unspecified psychosis F29 [address] [id number] [place] [address] 61039- 9557 Feb, [address] [id number] [place] [address] 89241- 3233 Feb, [address] [id number] [place] [address] 93227- 1562 Feb, Generalized anxiety disorder F41.1 [address] [place] [id number] [place] [address] 07519- 0196 Feb, Generalized anxiety disorder F41.1 [address] [place] [id number] [place] [address] 39476- 6486 Feb, Dizziness R42 ; Chronic fatigue R53.82 ; Postconcussion syndrome F07.81 ; Fall, initial encounter W19.XXXA and Disorientation R41.0 [address] [id number] [place] [address] 07296- 8798 Feb, Postconcussion syndrome F07.81 ; Injury of head, initial encounter S09.90XA ; Fall, initial encounter W19.XXXA ; Disorientation R41.0 and Acute cystitis with hematuria N30.01 [address] [place] [id number] [place] [address] 86203- 9819 Jan, Gastroesophageal reflux disease, esophagitis presence not specified K21.9 ; Post-menopausal Z78.0 and Migraine without aura and without status migrainosus, not intractable G43.009 [address] [place] [id number] [place] [address] 16909- 7227 Jan, [address] [place] [id number] [place] [address] 89301- 9102 Jan, Generalized anxiety disorder F41.1 ; Major depressive disorder, recurrent episode, moderate F33.1 ; Vascular dementia without behavioral disturbance F01.50 and Unspecified psychosis F29 [address] [id number] [place] [address] 37892- 4267 Jan, Pneumonia of left lower lobe due to infectious organism J18.1 [address] [id number] [place] [address] 49573- 6311 Jan, Migraine without aura and with status migrainosus, not intractable G43.001 [facility] [id number] [place] [address] 64177 -1384 Jan, Migraine without aura and without status migrainosus, not intractable G43.009 [facility] [id number] [place] [address] 78393- 0376 19 Dec, 2016 Hematoma T14.8 [facility] [address] 72604- 8062 12 Dec, 2016 [facility] [id number] [place] [address] 14891 -7789 Nov, Fatigue, unspecified type R53.83 [address] [id number] [place] [address] 79422- 2769 Nov, Scabies B86 and Coronary artery disease involving chick[place] coronary artery of [place] 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 I25.118 [address] [id number] [place] [address] 62435- 2246 Nov, [address] [id number] [place] [address] 60692- 2759 Nov, [address] [id number] [place] [address] 88346- 5312 Oct, [address] [id number] [place] [address] 95760- 4446 Oct, Generalized anxiety disorder F41.1 and Major depressive disorder, recurrent episode, moderate F33.1 [address] [id number] [place] [address] 63533- 0151 Oct, Cramp of both lower extremities R25.2 [address] [place] [id number] [place] [address] 87372- 5983 Oct, Leg cramps R25.2 [address] [place] [id number] [place] [address] 52636- 9557 Oct, Chronic pain syndrome G89.4 [facility] [address] [address]- 8941 17 Oct, 2016 [facility] [id number] [place] [address] 18859- 8473 14 Oct, 2016 [facility] [id number] [place] [address] 18526- 9935 11 Oct, 2016 Routine gynecological examination Z01.419 and Screening for breast cancer Z12.31 [address] [id number] [place] [address] 88151- 4777 28 Sep, 2016 Diarrhea R19.7 [address] [id number] [place] [address] 22100- 4869 26 Sep, 2016 Back pain M54.9 [address] [id number] [place] [address] 66764- 0025 Sep, [facility] [id number] [place] [address] 12066- 8095 Sep, [facility] [id number] [place] [address] 00012 -2663 August, Xeroderma Q80.9 [facility] [id number] [place] [address] 34553- 3033 August, Dementia without behavioral disturbance, unspecified dementia type F03.90 [facility] [id number] [place] [address] 57426- 9640 August, Chronic pain syndrome G89.4 [facility] [id number] [place] [address] 63304- 4775 August, [address] [id number] [place] [address] 52942- 1813 August, Hyperlipidemia E78.5 ; Other fatigue R53.83 and Other specified hypotension I95.89 [facility] [id number] [place] [address] 21006 -0570 August, Dysuria R30.0 ; Other fatigue R53.83 and Other specified hypotension I95.89 [facility] [address] 85793- 0558 August, [address] [address] 84379- 8307 Jul, Pain in left knee M25.562 and Gastroenteritis K52.9 [address] [address] 63622- 3072 Jul, [facility] [address] 80138- 2687 Jul, Diarrhea R19.7 [facility] [address] 38774 -6188 Jul, Spider bite, accidental or unintentional, initial encounter T63.301A [address] [address] 31967- 8939 Jul, Primary osteoarthritis of right knee M17.11 and Arthritis M19.90 [address] [address] 94520- 7898 Jul, Generalized anxiety disorder F41.1 and Major depressive disorder, recurrent episode, moderate F33.1 [address] [address] 88506- 2666 Jul, Type 2 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 and Temporal headache R51 [address] [address] 09193- 2976 Jul, Back pain M54.9 [address] [address] 18274- 3620 Jul, [place] [address] 09460- 4190 Jul, [facility] [address] 91732- 8862 Jun, Nausea R11.0 [facility] [id number] [place] [address] 68332 -2947 Jun, Acute suppurative otitis media of both ears without spontaneous rupture of tympanic membranes, recurrence not specified H66.003 and COPD exacerbation J44.1 [place] [address] 71555- 0006 Jun, Generalized anxiety disorder F41.1 [facility] [address] 07083- 5419 16 Jun, 2016 [facility] [address] 89738 -3544 Jun, [facility] [address] 20004 -5984 Jun, Shortness of breath R06.02 and COPD exacerbation J44.1 [place] [address] 12052- 1646 Jun, Eczema, unspecified type L30.9 [place] [address] 05397- 1219 Jun, [place] [address] 61041- 7070 May, [place] [address] 01554- 2595 May, Muscle cramping R25.2 [place] [address] 72539- 6934 May, [place] [address] 83674- 8929 Apr, Diarrhea R19.7 [facility] [address] 62582- 4624 Apr, [place] [address] 75765- 4821 Apr, Chronic pain syndrome G89.4 [place] [id number] [place] [address] 18621- 9396 16 Apr, 2016 Cramp of both lower extremities R25.2 and Vascular dementia without behavioral disturbance F01.50 [place] [address] 92015- 2852 03 Apr, 2016 Type 2 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 and Cigarette nicotine dependence without complication F17.210 [place] [address] 21259- 4454 Mar, Generalized anxiety disorder F41.1 [place] [address] 43240- 9236 Feb, Generalized anxiety disorder F41.1 and Major depressive disorder, recurrent episode, moderate F33.1 [place] [address] 84252- 6266 Feb, [facility] [address] 66948 -4433 Feb, Dysuria R30.0 and Acute cystitis with hematuria N30.01 [place] [address] 49955- 3252 Jan, [place] [address] 23357- 3311 Jan, [place] [address] 47552- 3076 Jan, [place] [address] 26200- 4892 Jan, [facility] [address] 70056 -7857 Jan, Wasp sting, accidental or unintentional, initial encounter T63.461A [place] [address] 52051- 9147 06 Jan, 2016 Encounter for immunization Z23 [facility] [id number] [place] [address] 25468- 8076 Jan, [facility] [address] 81331- 0069 Jan, [facility] [id number] [place] [address] 21433- 0208 28 Dec, 2015 Generalized anxiety disorder F41.1 and Major depressive disorder, recurrent episode, moderate F33.1 [facility] [id number] [place] [address] 08249- 0748 21 Dec, 2015 Routine gynecological examination Z01.419 ; Postmenopausal Z78.0 ; Screening breast examination Z12.39 ; Osteopenia M85.80 and Breast cancer screening Z12.39 [place] [id number] [place] [address] 80386- 5759 20 Dec, 2015 [place] [id number] [place] [address] 79355- 1021 19 Dec, 2015 [facility] [id number] [place] [address] 57105- 1356 16 Dec, 2015 [facility] [id number] [place] [address] 62611- 4339 16 Dec, 2015 [facility] [id number] [place] [address] 78454- 4608 14 Dec, 2015 [place] [id number] [place] [address] 90965- 7605 06 Dec, 2015 [facility] [id number] [place] [address] 54818- 3981 Nov, [facility] [id number] [place] [address] 59915 -0750 Nov, Cough R05 ; Other viral agents as the cause of diseases classified elsewhere B97.89 and Acute upper respiratory infection, unspecified J06.9 [facility] [facility] [id number] [place] [address] 29940- 4489 Nov, [facility] [id number] [address] 0615 Nov, [facility] [id number] [address]- 4641 Nov, [facility] [id number], [place] [address]- 0240 Nov, [facility] [id number] [place] [address] 70278- 0033 Nov, [facility] [id number] [address] 0623 Oct, [facility] [id number] [place] [address] 50645- 4011 Oct, [facility] [id number] [place] [address] 16498- 4703 Oct, [facility] [id number] [place] [address] 46107- 5675 Oct, Chronic pain syndrome G89.4 [facility] [id number] [place] [address] 89405- 6627 Sep, Generalized anxiety disorder F41.1 and Major depressive disorder, recurrent episode, moderate F33.1 [facility] [id number] [address]- 7384 Sep, [facility] [id number] [address]- 5806 Sep, [facility] [id number], [place] [address]- 5348 14 Sep, 2015 Generalized anxiety disorder F41.1 [facility] [id number] [address]- 0594 13 Sep, 2015 Cramp of both lower extremities R25.2 and Cervicalgia M54.2 [facility] [id number] [address]- 4242 Sep, Generalized anxiety disorder F41.1 [facility] [id number], [place] [address] 4021 Sep, [facility] [id number] [place] [address] 75922 -9142 August, Rash R21 ; Itching L29.9 and Allergic response, subsequent encounter T78.40XD [facility] [id number] [place] [address] 24941- 2371 August, Primary insomnia F51.01 [facility] [id number] [place] [address] 93193 -9164 August, Rash R21 ; Itching L29.9 and Allergic response, initial encounter T78.40XA [facility] [id number] [place] [address] 18804- 0919 August, [facility] [id number] [place] [address] 59368- 0719 August, Cramp of both lower extremities R25.2 [facility] [id number] [place] [address] 36621- 7015 August, Back pain M54.9 [facility] [id number] [place] [address] 93200- 6934 August, [facility] [id number] [place] [address] 69205- 4173 August, [facility] [id number] [place] [address] 30072 -9102 August, Cramp of both lower extremities R25.2 [facility] [id number] [place] [address] 76283- 4110 August, [facility] [id number] [place] [address] 44299- 1387 August, Syncope R55 ; Paroxysmal atrial fibrillation I48.0 ; Dementia without behavioral disturbance, unspecified dementia type F03.90 and Chronic pain syndrome G89.4 [facility] [id number] [place] [address] 80329- 6274 August, Type 2 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 and Syncope R55 [facility] [id number] [place] [address] 01691- 3922 Jul, [facility] [id number] [place] [address] 23548- 0174 Jul, [facility] [id number] [place] [address] 79983- 3986 Jul, [facility] [id number] [place] [address] 26563- 5981 Jul, [facility] [id number] [place] [address] 56085- 5537 Jul, [facility] [id number] [place] [address] 90610- 4074 Jul, UTI (urinary tract infection) N39.0 [facility] [id number] [place] [address] 92368- 2486 Jul, [facility] [id number] [place] [address] 61357- 9772 Jul, Major depressive disorder, recurrent episode, moderate F33.1 and Generalized anxiety disorder F41.1 [facility] [id number] [place] [address] 02197- 9797 Jul, Generalized anxiety disorder F41.1 [facility] [id number] [place] [address] 45897- 8839 Jul, Diarrhea R19.7 [facility] [id number] [place] [address] 36180- 9505 Jul, [facility] [id number] [place] [address] 89758- 8955 Jun, [facility] [id number] [place] [address] 41511- 2546 Jun, Eczema L30.9 [facility] [id number], [place] [address]- 9696 Jun, [facility] [id number] [place] [address] 37794- 7993 Jun, COPD (chronic obstructive pulmonary disease) J44.9 [facility] [id number] [place] [address] 33305- 8626 Jun, [facility] [id number] [place] [address] 99378 254 Jun, Major depressive disorder, recurrent episode, moderate F33.1 and Generalized anxiety disorder F41.1 [facility] [id number], [place] [address]- 4622 May, [facility] [id number] [place] [address] 35300- 1231 May, UTI (urinary tract infection) N39.0 [facility] [id number], [place] [address]- 9982 May, [facility] [id number] [place] [address] 71894- 2672 May, [facility] [id number], [place] [address]- 1994 May, [facility] [id number], [place] [address] 2544 May, [facility] [id number], [place] [address]- 3726 Apr, Major depressive disorder, recurrent episode, moderate F33.1 and Generalized anxiety disorder F41.1 [facility] [id number], [place] [address]- 6342 Apr, COPD (chronic obstructive pulmonary disease) J44.9 [facility] [id number] [place] [address] 31100- 3981 Apr, [facility] [id number], [place] [address]- 2897 Apr, Atrial flutter I48.92 [facility] [id number], [place] [address]- 7116 Apr, [facility] [id number] [place] [address] 68913- 2840 Apr, [facility] [id number] [place] [address] 46487- 3050 Mar, [facility] [id number] [place] [address] 29007- 0968 Mar, [facility] [id number] [place] [address] 76475- 5929 Mar, [facility] [id number] [place] [address] 85356- 5327 Mar, Hyperlipidemia E78.5 ; Type 2 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 ; Major depressive disorder, recurrent episode, moderate F33.1 and Chronic pain syndrome G89.4 [facility] [id number] [place] [address] 03699- 4379 Mar, [facility] [id number], [place] [address]- 6645 Mar, [facility] [id number] [place] [address] 42297- 7406 Mar, [facility] [id number] [place] [address] 19300- 7215 Mar, [facility] [id number] [place] [address] 14963- 2702 30 Feb, 2015 COPD (chronic obstructive pulmonary disease) J44.9 and Back pain M54.9 [facility] [id number], [place] [address]- 4722 Feb, [facility] [id number], [place] [address]- 7240 Feb, [facility] [id number] [place] [address] 32945- 5797 Feb, [facility] [id number] [place] [address] 49664- 5426 Feb, [facility] [id number] [place] [address] 55270- 4746 Feb, [facility] [id number] [place] [address] 51863- 5982 Feb, [facility] [id number] [place] [address] 57235- 4825 Feb, [facility] [id number] [place] [address] 96118- 0741 Feb, [facility] [id number] [place] [address] 73384- 7468 Feb, Diabetes E11.9 ; Back pain M54.9 and COPD (chronic obstructive pulmonary disease) J44.9 [facility] [id number] [place] [address] 20831- 0181 Jan, [facility] [id number] [place] [address] 50403- 2292 Jan, Major depression, recurrent F33.9 and Generalized anxiety disorder F41.1 [facility] [id number] [place] [address] 88488- 3072 Jan, Chronic pain G89.29 [facility] [id number] [place] [address] 15882- 3546 Jan, [facility] [id number] [place] [address] 83946- 6906 Jan, [facility] [id number] [place] [address] 77112- 3130 Jan, [facility] [id number] [place] [address] 05851- 5402 Jan, [facility] [id number] [place] [address] 95009- 8484 Jan, Nicotine dependence F17.200 [facility] [id number] [place] [address] 29671- 6938 Jan, Nicotine dependence F17.200 and Back pain M54.9 [facility] [address] 69474- 6031 Jan, [facility] [id number] [place] [address] 87682- 3146 28 Dec, 2014 [facility] [address] 27216- 4856 25 Dec, 2014 Anxiety, generalized 300.02 and Major depression, recurrent 296.30 [facility] [address] 58932- 1074 24 Dec, 2014 [facility] [id number] [place] [address] 67807- 5945 21 Dec, 2014 [facility] [address] 32967- 2886 17 Dec, 2014 [facility] [id number] [place] [address] 41871- 7650 15 Dec, 2014 [facility] [id number] [place] [address] 62757- 4973 14 Dec, 2014 [facility] [id number] [place] [address] 52450- 2540 11 Dec, 2014 [facility] [id number] [place] [address] 16620- 8492 10 Dec, 2014 [facility] [id number] [place] [address] 92416- 5026 08 Dec, 2014 Skin tear 879.8 [facility] [address] 09109- 4838 Dec, Routine gynecological examination V72.31 ; Breast cancer screening V76.10 and Family history of breast cancer in first degree relative V16.3 [facility] [id number] [place] [address] 82091- 7560 Dec, [facility] [id number] [place] [address] 81270- 2285 Dec, [facility] [id number] [place] [address] 66438- 5122 Nov, [facility] [id number] [place] [address] 75751- 4635 Nov, [facility] [id number] [place] [address] 03604- 3817 Nov, Poor balance 781.99 and Vascular dementia, uncomplicated 290.40 [facility] [id number] [place] [address] 80284- 2866 Nov, [facility] [id number] [place] [address] 00507- 3892 Nov, Major depression, recurrent 296.30 and Anxiety, generalized 300.02 [facility] [id number] [place] [address] 92612- 8019 Nov, [facility] [id number] [place] [address] 12822- 6537 Nov, [facility] [id number] [place] [address] 52120- 0399 Nov, [facility] [id number] [place] [address] 11619- 9122 Nov, [facility] [id number] [place] [address] 92708- 9648 Nov, Vascular dementia, uncomplicated 290.40 and Lumbago 724.2 [facility] [id number] [place] [address] 83589- 8752 Nov, [facility] [id number] [address]- 6333 Nov, [facility] [id number], [place] [address]- 7528 Nov, [facility] [id number] [address]- 5243 Oct, [facility] [id number] [place] [address] 01291- 2033 Oct, [facility] [id number] [place] [address] 47476- 6830 Oct, [facility] [id number] [place] [address] 63058- 8325 Oct, COPD (chronic obstructive pulmonary disease) 496 and Hyperlipidemia 272.4 [facility] [id number] [place] [address] 97907- 4310 Oct, Major depression, recurrent 296.30 and Anxiety, generalized 300.02 [facility] [id number], [place] [address]- 7780 Oct, [facility] [id number] [place] [address] 38626- 6368 Oct, [facility] [id number], [place] [address]- 0496 Oct, [facility] [id number], [place] [address]- 5169 Sep, Lumbago 724.2 and Anxiety state, unspecified 300.00 [facility] [id number], [place] [address]- 6627 Sep, [facility] [id number] [address]- 4611 Sep, [facility] [id number], [place] [address]- 9137 August, [facility] [id number] [place] [address] 29685- 9643 August, Major depression, recurrent 296.30 ; Anxiety, generalized 300.02 and No condition on Ava II V71.09 [facility] [id number] [address]- 5133 August, [facility] [id number] [address]- 5856 August, [facility] [id number] [place] [address] 65278- 3958 Jul, [facility] [id number] [place] [address] 42027- 4259 Jul, [facility] [id number] [place] [address] 27288- 0542 Jul, [facility] [id number] [address]- 7801 Jun, [facility] [id number], [place] [address]- 5441 Jun, [facility] [id number], [place] [address]- 2765 Jun, [facility] [id number], [place] [address]- 1751 Jun, [facility] [id number], [place] [address]- 8304 Jun, [facility] [id number], [place] [address]- 8905 Jun, [facility] [id number] [address]- 5294 Jun, [facility] [id number], [place] [address]- 3558 17 Jun, 2014 [facility] [id number] [address]- 9489 Jun, [facility] [id number] [address]- 7089 13 Jun, 2014 [facility] [place] [facility] [address] [id number] [place] [address]- 9124 10 Jun, 2014 [facility] [place] [facility] [address] [id number] [place] [address]- 6916 10 Jun, 2014 [facility] [place] [facility] [address] [facility] [id number] [place] [address]- 2436 07 Jun, 2014 [facility] [place] [facility] [address] [id number] [place] [address]- 4906 07 Jun, 2014 [facility] [place] [facility] [address] [id number] [place] [address]- 3086 02 Jun, 2014 [facility] [place] [facility] [address] [facility] [id number] [place] [address]- 1689 02 Jun, 2014 [facility] [place] [facility] [address] [facility] [id number] [place] [address]- 4596 23 May, 2014 [facility] [place] [facility] [address] [facility] [id number] [place] [address]- 1805 23 May, 2014 [facility] [place] [facility] [address] [facility] [id number] [place] [address]- 2968 20 May, 2014 [facility] [place] [facility] [address] [facility] [id number] [place] [address]- 2093 20 May, 2014 [facility] [place] [facility] [address] [facility] [id number] [place] [address] 2545 20 May, 2014 [facility] [place] [facility] [address] [facility] [id number] [place] [address] 254 20 May, 2014 [facility] [place] [facility] [address] [facility] [id number] [place] [address]- 8563 19 May, 2014 [facility] [place] [facility] [address] [facility] [id number] [place] [address] 2546 12 May, 2014 [facility] [place] [facility] [address] [facility] [id number] [place] [address]- 8[address] May, [facility] [place] [facility] [address] [id number] [place] [address] May, [facility] [place] [facility] [address] [id number] [place] [address] May, [facility] [place] [facility] [address] [facility] [id number] [place] [address] May, [facility] [place] [facility] [address] [id number] [place] [address] May, [facility] [place] [facility] [address] [id number] [place] [address] May, [facility] [place] [facility] [address] [id number] [place] [address] Apr, [facility] [place] [facility] [address] [id number] [place] [address] Apr, [facility] [place] [facility] [address] [id number] [place] [address] Apr, [facility] [place] [facility] [address] [id number] [place] [address] Apr, [facility] [place] [facility] [address] [facility] [id number] [place] [address] Apr, [facility] [place] [facility] [address] [id number], [place] [address] Apr, [facility] [place] [facility] [address] [id number], [place] [address] Apr, [facility] [place] [facility] [address] [id number], [place] [address] Apr, [facility] [place] [facility] [address] [id number] [place] [address] Apr, [facility] [place] [facility] [address] [facility] [id number] [place] [address]- [address] Apr, [facility] [place] [facility] [address] [id number] [place] [address] Apr, [facility] [place] [facility] [address] [id number] [place] [address] Apr, [facility] [place] [facility] [address] [id number] [place] [address]- [address] Mar, [facility] [place] [facility] [address] [id number] [place] [address] Mar, [facility] [place] [facility] [address] [id number] [place] [address] Mar, [facility] [place] [facility] [address] [id number] [place] [address] Mar, [facility] [place] [facility] [address] [id number] [place] [address] Mar, [facility] [place] [facility] [address] [id number] [place] [address] 29 Mar, 2014 [facility] [place] [facility] [address] [id number] [place] [address] Mar, [facility] [place] [facility] [address] [id number] [place] [address]- [address] Mar, [facility] [place] [facility] [address] [id number] [place] [address] 15 Mar, 2014 [facility] [place] [facility] [address] [id number] [place] [address] 15 Mar, 2014 [facility] [place] [facility] [address] [id number] [place] [address] 15 Mar, 2014 [facility] [place] [facility] [address] [id number] [place] [address] 15 Mar, 2014 [facility] [place] [facility] [address] [id number] [place] [address] 15 Mar, 2014 [facility] [place] [facility] [address] [id number] [place] [address] 2114 Mar, [facility] [place] [facility] [address] [id number] [place] [address] 2885 Mar, [facility] [place] [facility] [address] [id number] [place] [address] 1943 Mar, [facility] [place] [facility] [address] [id number] [place] [address] 0118 Mar, [facility] [place] [facility] [address] [id number] [place] [address] 3304 Mar, [facility] [place] [facility] [address] [id number] [place] [address]- 6327 Mar, [facility] [place] [facility] [address] [id number] [place] [address]- 2074 Mar, [facility] [place] [facility] [address] [id number] [place] [address]- 3274 Feb, [facility] [place] [facility] [address] [id number] [place] [address]- 7137 Feb, [facility] [place] [facility] [address] [id number] [place] [address] 6801 Feb, [facility] [place] [facility] [address] [id number] [place] [address] 8388 Feb, [facility] [place] [facility] [address] [id number] [place] [address]- 5492 Feb, [facility] [place] [facility] [address] [id number], [place] [address] 4[address] Feb, [facility] [place] [facility] [address] [id number] [place] [address]- 6227 Feb, [facility] [place] [facility] [address] [id number] [place] [address]- 3640 Feb, [facility] [place] [facility] [address] [id number] [place] [address]- 5713 Feb, [facility] [place] [facility] [address] [id number] [place] [address]- 1428 Feb, [facility] [place] [facility] [address] [id number] [place] [address]- 4445 10 Feb, 2014 [facility] [place] [facility] [address] [id number] [place] [address]- 5728 Feb, [facility] [place] [facility] [address] [id number] [place] [address]- 9796 Feb, [facility] [place] [facility] [address] [id number] [place] [address]- 7251 Feb, [facility] [place] [facility] [address] [id number] [place] [address]- 8844 Feb, [facility] [place] [facility] [address] [id number] [place] [address]- 0948 Feb, [facility] [place] [facility] [address] [id number] [place] [address]- 1892 Feb, [facility] [place] [facility] [address] [id number] [place] [address]- 9620 Jan, [facility] [place] [facility] [address] [id number] [place] [address]- 9814 Jan, [facility] [place] [facility] [address] [facility] [id number] [place] [address]- 7587 Jan, [facility] [place] [facility] [address] [id number] [place] [address]- 4644 Jan, [facility] [place] [facility] [address] [id number], [place] [address]- 7877 Jan, [facility] [place] [facility] [address] [id number] [place] [address]- 4410 Jan, [facility] [place] [facility] [address] [id number] [place] [address]- 1265 Jan, [facility] [place] [facility] [address] [id number] [place] [address]- 1034 Jan, [facility] [place] [facility] [address] [id number] [place] [address]- 0893 Jan, [facility] [place] [facility] [address] [id number] [place] [address]- 7564 Jan, [facility] [place] [facility] [address] [id number] [place] Jan, [facility] [place] [facility] [address] [id number] [place] [address]- 7834 Dec, [facility] [place] [facility] [address] [id number] [place] [address]- 0473 Dec, [facility] [place] [facility] [address] [id number] [place] [address]- 7150 Nov, [facility] [place] [facility] [address] [id number] [place] [address]- 0609 Nov, [facility] [place] [facility] [address] [id number] [place] [address]- 4047 Nov, [facility] [place] [facility] [address] [id number] [place] [address]- 3914 Nov, [facility] [place] [facility] [address] [id number] [place] [address]- 6510 Nov, [facility] [place] [facility] [address] [id number] [place] [address]- 7277 Nov, [facility] [place] [facility] [address] [id number] [place] [address]- 8704 Nov, [facility] [place] [facility] [address] [id number] [place] [address]- 0821 Oct, [facility] [place] [facility] [address] [id number] [place] [address]- 5887 Oct, [facility] [place] [facility] [address] [id number] [place] Oct, [facility] [place] [facility] [address] [id number] [place] [address]- 6718 Oct, [facility] [place] [facility] [address] [id number] [place] [address]- 4167 Sep, [facility] [place] [facility] [address] [id number] [place] [address]- 7525 Sep, [facility] [place] [facility] [address] [id number] [place] [address]- 6562 Sep, [facility] [place] [facility] [address] [id number] [place] [address]- 5724 Sep, [facility] [place] [facility] [address] [id number] [place] [address]- 6177 Sep, [facility] [place] [facility] [address] [id number] [place] [address]- 9870 Sep, [facility] [place] [facility] [address] [id number] [place] [address]- 4338 Sep, [facility] [place] [facility] [address] [id number] [place] [address]- 7858 Sep, [facility] [place] [facility] [address] [id number] [place] [address]- 9887 Sep, [facility] [place] [facility] [address] [id number] [place] [address]- 6659 Sep, [facility] [place] [facility] [address] [id number] [place] [address]- 0782 Sep, [facility] [place] [facility] [address] [id number], [place] [address]- 0262 Sep, [facility] [place] [facility] [address] [id number] [place] [address]- 4423 Sep, [facility] [place] [facility] [address] [id number] [place] [address]- 7674 Sep, [facility] [place] [facility] [address] [id number] [place] [address]- 5735 August, [facility] [place] [facility] [address] [id number] [place] [address] 1948 August, [facility] [address] [id number] [place] [address]- 6296 August, [facility] [address] [id number] [place] [address]- 2836 August, [facility] [address] [id number] [place] [address]- 3942 August, [facility] [address] [id number] [place] [address]- 9658 August, [facility] [address] [id number] [place] [address]- 7031 August, [facility] [address] [id number] [place] [address] 1958 August, [facility] [address] [id number] [place] [address]- 3431 August, [facility] [address] [id number] [place] [address]- 6272 August, [facility] [address] [id number] [place] [address]- 8344 August, [facility] [address] [id number] [place] [address]- 1735 August, [facility] [address] [id number] [place] [address]- 4870 August, [facility] [address] [id number] [place] [address]- 3814 August, [facility] [address] [id number] [place] [address]- 3532 August, [facility] [address] [id number] [place] [address]- 5534 August, [facility] [address] [id number] [place] [address]- 9602 August, [facility] [address] [id number] [place] [address]- 5124 August, [facility] [place] [facility] [address] [id number] [place] [address]- 8804 August, [facility] [place] [facility] [address] [id number] [place] [address]- 5422 Jul, [facility] [place] [facility] [address] [id number] [place] [address]- 3783 Jul, [facility] [place] [facility] [address] [id number] [place] [address]- 0990 Jul, [facility] [place] [facility] [address] [id number] [place] [address]- 5095 Jul, [facility] [place] [facility] [address] [id number] [place] [address]- 8682 Jun, [facility] [place] [facility] [address] [id number] [place] [address]- 5435 Jun, [facility] [place] [facility] [address] [id number] [place] [address]- 7164 Jun, [facility] [place] [facility] [address] [id number] [place] [address]- 3285 24 Jun, 2013 [facility] [place] [facility] [address] [id number] [place] [address]- 2103 Jun, [facility] [place] [facility] [address] [id number] [place] [address]- 8150 17 Jun, 2013 [facility] [place] [facility] [address] [id number] [place] [address]- 7620 14 Jun, 2013 [facility] [place] [facility] [address] [id number] [place] [address]- 4108 14 Jun, 2013 [facility] [place] [facility] [address] [id number] [place] [address]- 0679 06 Jun, 2013 [facility] [place] [facility] [address] [id number], [place] [address]- 3169 Jun, [facility] [place] [facility] [address] [id number] [place] [address]- 0626 May, [facility] [place] [facility] [address] [id number] [place] [address]- 3336 May, [facility] [place] [facility] [address] [facility] [id number] [place] [address]- 7786 May, [facility] [place] [facility] [address] [id number] [place] [address]- 5816 May, [facility] [place] [facility] [address] [id number] [place] [address]- 0429 May, [facility] [place] [facility] [address] [facility] [id number] [place] [address]- 8860 May, [facility] [place] [facility] [address] [facility] [id number] [place] [address]- 3003 20 May, 2013 [facility] [place] [facility] [address] [facility] [id number] [place] [address]- 6143 May, [facility] [place] [facility] [address] [facility] [id number] [place] [address]- 6048 May, [facility] [place] [facility] [address] [facility] [id number] [place] [address]- 7240 18 May, 2013 [facility] [place] [facility] [address] [facility] [id number] [place] [address]- 2542 18 May, 2013 [facility] [place] [facility] [address] [facility] [id number] [place] [address]- 2548 17 May, 2013 [facility] [place] [facility] [address] [facility] [id number] [place] [address]- 2056 May, [facility] [place] [facility] [address] [facility] [id number] [place] [address]- 2546 11 May, 2013 [facility] [place] [facility] [address] [facility] [id number] [place] [address]- 7587 May, [facility] [place] [facility] [address] [id number] [place] [address]- 8717 May, [facility] [place] [facility] [address] [id number] [place] [address]- 2590 May, [facility] [place] [facility] [address] [facility] [id number] [place] [address]- 4579 Apr, [facility] [place] [facility] [address] [id number] [place] [address]- 5472 Apr, [facility] [place] [facility] [address] [id number] [place] [address]- 5050 Apr, [facility] [place] [facility] [address] [facility] [id number] [place] [address]- 8354 Apr, [facility] [place] [facility] [address] [facility] [id number] [place] [address]- 8716 Apr, [facility] [place] [facility] [address] [id number] [place] [address]- 0893 Apr, [facility] [place] [facility] [address] [id number] [place] [address]- 8829 Apr, [facility] [place] [facility] [address] [facility] [id number] [place] [address]- 6673 Mar, [facility] [place] [facility] [address] [id number], [place] [address]- 1955 Mar, [facility] [place] [facility] [address] [id number], [place] [address]- 1360 Mar, [facility] [place] [facility] [address] [id number] [place] [address]- 4506 Mar, [facility] [place] [facility] [address] [facility] [id number] [place] [address]- 1691 Mar, [facility] [place] [facility] [address] [facility] [id number] [place] [address]- 4919 Mar, [facility] [place] [facility] [address] [id number] [place] [address]- 3149 Mar, [facility] [address] [id number] [place] [address]- 4383 Mar, [facility] [address] [id number] [place] [address]- 3126 Mar, [facility] [address] [id number] [place] 9550 Mar, [facility] [address] [id number] [place] [address]- 1099 Mar, [facility] [address] [id number] [place] [address]- 0696 Feb, [facility] [address] [id number] [place] [address]- 0552 Feb, [facility] [address] [id number] [place] [address]- 0200 Feb, [facility] [address] [id number] [place] [address]- 3265 20 Feb, 2013 [facility] [address] [id number] [place] [address]- 6275 Feb, [facility] [address] [facility] [id number] [place] [address]- 4930 19 Feb, 2013 [facility] [address] [id number] [place] [address]- 9055 15 Feb, 2013 [facility] [address] [id number] [place] [address]- 1904 14 Feb, 2013 [facility] [address] [id number] [place] [address]- 2229 14 Feb, 2013 [facility] [address] [id number] [place] [address]- 4838 13 Feb, 2013 [facility] [address] [id number] [place] [address]- 3070 Feb, [facility] [place] [facility] [address] [id number] [place] [address]- 8528 Feb, [facility] [place] [facility] [address] [id number] [place] [address]- 9172 Feb, [facility] [place] [facility] [address] [id number] [place] [address]- 0110 Feb, [facility] [place] [facility] [address] [id number] [place] [address]- 6838 Feb, [facility] [place] [facility] [address] [id number] [place] [address]- 2190 Feb, [facility] [place] [facility] [address] [id number] [place] [address]- 6185 Jan, [facility] [place] [facility] [address] [id number] [place] [address]- 4108 Jan, [facility] [place] [facility] [address] [id number], [place] [address]- 8287 Jan, [facility] [place] [facility] [address] [id number] [place] [address]- 8466 Jan, [facility] [place] [facility] [address] [id number], [place] [address]- 0151 Jan, [facility] [place] [facility] [address] [id number], [place] [address]- 8847 Jan, [facility] [place] [facility] [address] [id number], [place] [address]- 8851 Jan, [facility] [place] [facility] [address] [id number], [place] [address]- 5111 Jan, [facility] [place] [facility] [address] [id number], [place] [address]- 1266 Jan, [facility] [place] [facility] [address] [id number], [place] [address]- 1431 27 Dec, 2012 [facility] [place] [facility] [address] [id number], [place] [address]- 4642 20 Dec, 2012 [facility] [place] [facility] [address] [id number] [place] [address]- 5424 19 Dec, 2012 [facility] [place] [facility] [address] [id number] [place] [address]- 8096 10 Dec, 2012 [facility] [place] [facility] [address] [id number] [place] [address]- 6968 04 Dec, 2012 [facility] [place] [facility] [address] [id number] [place] [address]- 9298 03 Dec, 2012 [facility] [place] [facility] [address] [id number] [place] [address]- 5888 Nov, [facility] [place] [facility] [address] [id number] [place] [address]- 1062 Nov, [facility] [place] [facility] [address] [id number] [place] [address]- 8853 Nov, [facility] [place] [facility] [address] [id number] [place] [address]- 4762 Nov, [facility] [place] [facility] [address] [id number] [place] [address]- 8041 Nov, [facility] [place] [facility] [address] [id number] [place] [address]- 2591 Nov, [facility] [place] [facility] [address] [id number] [place] [address]- 1886 Nov, [facility] [place] [facility] [address] [id number] [place] [address]- 0050 Nov, [facility] [place] [facility] [address] [id number] [place] [address]- 7296 14 Nov, 2012 [facility] [place] [facility] [address] [id number] [place] [address]- 5364 Nov, [facility] [place] [facility] [address] [id number] [place] [address]- 9293 17 Oct, 2012 [facility] [place] [facility] [address] [id number] [place] [address]- 8384 Oct, 2012 [facility] [place] [facility] [address] [id number] [place] [address]- 2870 Oct, [facility] [place] [facility] [address] [id number] [place] [address]- 3966 Oct, 2012 [facility] [place] [facility] [address] [id number] [place] [address]- 1925 Oct, 2012 [facility] [place] [facility] [address] [id number] [place] [address]- 8843 Oct, [facility] [place] [facility] [address] [id number] [place] [address]- 8899 Oct, [facility] [place] [facility] [address] [id number] [place] [address]- 3640 Oct, [facility] [place] [facility] [address] [id number] [place] [address]- 5292 Sep, [facility] [place] [facility] [address] [id number] [place] [address] Sep, [facility] [place] [facility] [address] [id number] [place] [address] Sep, [facility] [place] [facility] [address] [id number] [place] [address] Sep, [facility] [place] [facility] [address] [id number] [place] [address] Sep, [facility] [place] [facility] [address] [id number] [place] [address] Sep, [facility] [place] [facility] [address] [id number] [place] [address] Sep, [facility] [place] [facility] [address] [id number] [place] [address] Sep, [facility] [place] [facility] [address] [id number] [place] [address] August, [facility] [address] [id number] [place] [address] August, [facility] [address] [id number] [place] [address] August, [facility] [address] [id number] [place] [address]- [address] August, [facility] [address] [id number] [place] [address] August, [facility] [address] [id number] [place] [address] Jul, [facility] [address] [id number] [place] [address] Jul, [facility] [address] [id number] [place] [address] Jul, [facility] [address] [id number] [place] [address] Jul, [facility] [address] [id number] [place] [address] Jul, [facility] [address] [id number] [place] [address] Jun, [facility] [address] [id number] [place] [address]- [address] 18 Jun, 2012 [facility] [place] [facility] [address] [id number], [place] [address] 15 Jun, 2012 [facility] [place] [facility] [address] [id number] [place] [address]- [address] 14 Jun, 2012 [facility] [place] [facility] [address] [id number] [place] [address]- [address] 12 Jun, 2012 [facility] [place] [facility] [address] [id number] [place] [address]- [address] 08 Jun, 2012 [facility] [place] [facility] [address] [id number] [place] [address]- [address] 08 Jun, 2012 [facility] [address] [id number] [place] [address] Jun, [facility] [address] [id number] [place] [address] Jun, [facility] [address] [id number] [place] [address] May, [facility] [address] [id number] [place] [address] May, [facility] [address] [id number] [place] [address] May, [facility] [address] [id number] [place] [address] May, [facility] [address] [id number] [place] [address] Apr, [facility] [address] [id number] [place] [address] Apr, [facility] [address] [id number] [place] [address]- [address] Apr, [facility] [address] [id number] [place] [address]- [address]69 Apr, [facility] [address] [id number] [place] [address] Apr, [facility] [address] [id number] [place] [address]- [address] Apr, [facility] [address] [id number] [place] [address] Apr, [facility] [address] [id number] [place] [address] Mar, [facility] [address] [place] [id number] Mar, [facility] [place] [facility] [address] [id number] [place] [address] Mar, [facility] [place] [facility] [address] [id number] [place] [address] Mar, [facility] [place] [facility] [address] [id number] [place] [address]- [address] Mar, [facility] [place] [facility] [address] [id number] [place] [address]- [address] Mar, [facility] [place] [facility] [address] [id number] [place] [address]- [address] Mar, [facility] [place] [facility] [address] [id number] [place] [address]- 6[address] Mar, [facility] [place] [facility] [address] [id number] [place] [address] Mar, [facility] [place] [facility] [address] [id number] [place] [address]- [address]40 Mar, [facility] [place] [facility] [address] [id number] [place] [address]- [address] Mar, [facility] [place] [facility] [address] [id number] [place] [address]- 7036 Mar, [facility] [place] [facility] [address] [id number] [place] [address]- [address] Mar, [facility] [place] [facility] [address] [id number] [place] [address]- [address]26 Mar, [facility] [place] [facility] [address] [id number] [place] [address]- [address] Mar, [facility] [place] [facility] [address] [id number] [place] [address]- [address] Mar, [facility] [place] [facility] [address] [id number] [place] [address] 46[address] Mar, [facility] [place] [facility] [address] [id number] [place] [address] Feb, [facility] [place] [facility] [address] [id number] [place] [address]- [address] Feb, [facility] [place] [facility] [address] [id number] [place] [address] Feb, [facility] [place] [facility] [address] [id number] [place] [address]- [address] Feb, [facility] [place] [facility] [address] [id number] [place] [address]- 30[address] Feb, [facility] [place] [facility] [address] [id number] [place] [address]- [address] Feb, [facility] [place] [facility] [address] [id number] [place] [address]- [address] Feb, [facility] [place] [facility] [address] [id number] [place] [address]- [address] Feb, [facility] [place] [facility] [address] [id number], [place] [address] Feb, [facility] [place] [facility] [address] [id number] [place] [address]- [address] Feb, [facility] [place] [facility] [address] [id number], [place] [address] Feb, [facility] [place] [facility] [address] [id number], [place] [address] Feb, [facility] [place] [facility] [address] [id number], [place] [address] Feb, [facility] [place] [facility] [address] [id number], [place] [address] Feb, [facility] [place] [facility] [address] [id number], [place] [address] Feb, [facility] [place] [facility] [address] [id number], [place] [address] Feb, [facility] [place] [facility] [address] [id number] [place] [address] Jan, 2011 [facility] [place] [facility] [address] [id number] [place] [address] Jan, 2011 [facility] [place] [facility] [address] [id number] [place] [address] 4[address] Jan, [facility] [place] [facility] [address] [id number] [place] [address]- 6585 Jan, 2011 [facility] [place] [facility] [address] [id number] [place] [address]- 5698 Jan, 2011 [facility] [place] [facility] [address] [id number] [place] [address] 2760 Jan, [facility] [place] [facility] [address] [id number] [place] [address] 0964 Jan, [facility] [place] [facility] [address] [id number] [place] [address] 3724 Jan, [facility] [place] [facility] [address] [id number] [place] [address]- 0689 Jan, [facility] [place] [facility] [address] [id number] [place] [address] 7558 Jan, [facility] [place] [facility] [address] [facility] [id number] [place] [address] 3[address] Jan, [facility] [place] [facility] [address] [id number] [place] [address]- 6477 Jan, [facility] [place] [facility] [address] [id number], [place] [address] 9[address] Jan, [facility] [place] [facility] [address] [id number] [place] [address]- 8916 Jan, [facility] [place] [facility] [address] [facility] [id number] [place] [address]- 0158 Jan, [facility] [place] [facility] [address] [id number], [place] [address] Jan, [facility] [place] [facility] [address] [id number] [place] [address] 7929 Jan, [facility] [place] [facility] [address] [id number] [place] [address]- 3675 21 Dec, 2011 [facility] [place] [facility] [address] [id number] [place] [address] 7229 20 Dec, 2011 [facility] [place] [facility] [address] [id number] [place] [address]- 6326 18 Dec, 2011 [facility] [place] [facility] [address] [id number] [place] [address]- 9585 18 Dec, 2011 [facility] [place] [facility] [address] [id number] [place] [address] 5523 10 Dec, 2011 [facility] [place] [facility] [address] [id number] [place] [address]- 5712 10 Dec, 2011 [facility] [place] [facility] [address] [id number] [place] [address] 8998 10 Dec, 2011 [facility] [place] [facility] [address] [id number] [place] [address]- 9414 07 Dec, 2011 [facility] [place] [facility] [address] [id number] [place] [address]- 6325 30 Nov, 2011 [facility] [place] [facility] [address] [id number] [place] [address]- 5339 Nov, [facility] [place] [facility] [address] [id number] [place] [address]- 7140 24 Nov, 2011 [facility] [place] [facility] [address] [id number] [place] [address]- 2831 Nov, [facility] [place] [facility] [address] [id number] [place] [address]- 3949 Nov, [facility] [place] [facility] [address] [id number] [place] [address]- 4274 16 Nov, 2011 [facility] [place] [facility] [address] [id number] [place] [address]- 2546 Oct, [facility] [place] [facility] [address] [id number] [place] [address]- 9476 30 Oct, 2011 [facility] [place] [facility] [address] [id number] [place] [address]- 1426 Oct, [facility] [place] [facility] [address] [id number] [place] [address] 2546 Oct, [facility] [place] [facility] [address] [id number] [place] [address] 2540 Oct, [facility] [place] [facility] [address] [id number] [place] [address]- 9800 Oct, [facility] [place] [facility] [address] [id number] [place] [address] 8808 Oct, [facility] [place] [facility] [address] [id number] [place] [address]- 4441 Sep, [facility] [place] [facility] [address] [id number] [place] [address]- 0698 Sep, [facility] [place] [facility] [address] [id number] [place] [address]- 7791 Sep, [facility] [place] [facility] [address] [id number] [place] [address]- 8915 Sep, [facility] [place] [facility] [address] [id number] [place] [address]- 2344 Sep, [facility] [place] [facility] [address] [id number] [place] [address]- 4897 15 Sep, 2011 [facility] [place] [facility] [address] [id number] [place] [address]- 3788 14 Sep, 2011 [facility] [place] [facility] [address] [id number] [place] [address]- 0991 11 Sep, 2011 [facility] [place] [facility] [address] [id number] [place] [address]- 254 05 Sep, 2011 [facility] [place] [facility] [address] [id number] [place] [address]- 8692 Sep, [facility] [address] [id number] [place] [address] 6040 August, [facility] [address] [id number] [place] [address]- 7526 August, [facility] [address] [id number] [place] [address]- 0986 August, [facility] [address] [id number] [place] [address] 7885 August, [facility] [address] [id number] [place] [address]- 0161 August, [facility] [address] [id number] [place] [address]- 1713 Jul, [facility] [address] [id number] [place] [address]- 2892 Jul, [facility] [address] [id number] [place] [address]- 8936 Jul, [facility] [address] [id number] [place] [address]- 1993 Jul, [facility] [address] [id number] [place] [address]- 9793 Jul, [facility] [address] [id number] [place] [address]- 2690 Jul, [facility] [address] [id number] [place] [address]- 0533 Jul, [facility] [address] [id number] [place] [address]- 7247 Jun, [facility] [address] [id number] [place] [address]- 7775 Jun, [facility] [address] [id number] [place] [address] Jun, [facility] [place] [facility] [address] [id number] [place] [address]- 4762 Jun, [facility] [place] [facility] [address] [id number] [place] [address]- 1694 Jun, [facility] [place] [facility] [address] [id number] [place] [address]- 4268 May, [facility] [place] [facility] [address] [id number] [place] [address]- 0391 May, [facility] [place] [facility] [address] [id number] [place] [address]- 1964 May, [facility] [place] [facility] [address] [id number] [place] [address]- 5718 May, [facility] [place] [facility] [address] [id number] [place] [address]- 8015 May, [facility] [place] [facility] [address] [id number] [place] [address]- 9203 May, [facility] [place] [facility] [address] [id number] [place] [address]- 2887 Apr, [facility] [place] [facility] [address] [id number] [place] [address]- 4004 Mar, [facility] [place] [facility] [address] [id number] [place] [address]- 0591 Feb, [facility] [place] [facility] [address] [id number] [place] [address]- 8296 Feb, [facility] [place] [facility] [address] [id number] [place] [address]- 3675 Feb, [facility] [place] [facility] [address] [id number] [place] [address]- 8625 Feb, [facility] [place] [facility] [address] [id number] [place] [address]- 2839 Jan, [facility] [place] [facility] [address] [id number] [place] [address]- 5080 27 Jan, 2011 [facility] [address] [id number] [place] [address]- 9796 26 Jan, 2011 [facility] [address] [id number] [place] [address]- 1426 24 Jan, 2011 [facility] [address] [id number] [place] [address]- 0016 14 Jan, 2011 [facility] [address] [id number] [place] [address] 2542 19 Dec, 2010 [facility] [id number] [place] [address], [place] [address]- 4718 Oct, [facility] [address] [id number] [place] [address]- 4740 August, [facility] [address] [id number] [place] [address]- 5958 29 Mar, 2010 [facility] [address] [id number] [place] [address]- 4161 27 Mar, 2010 [facility] [address] [id number] [place] [address] 2548 16 Mar, 2010 [facility] [address] [id number] [place] [address]- 2543 15 Mar, 2010 [facility] [address] [id number] [place] [address] 2546 15 Mar, 2010 [facility] [address] [id number] [place] [address] 2544 08 Mar, 2010 [facility] [address] [id number] [place] [address] 2548 03 Mar, 2010 [facility] [address] [id number] [place] [address]- 2544 24 Feb, 2010 [facility] [address] [id number] [place] [address] 2548 24 Feb, 2010 [facility] [place] [facility] [address] [id number] [place] [address]- 2615 15 Feb, 2010 [facility] [place] [facility] [address] [id number] [place] [address]- 3800 19 Jan, 2010 [facility] [place] [facility] [address] [id number] [place] [address]- 5551 18 Jan, 2010 [facility] [place] [facility] [address] [id number] [place] [address]- 3992 18 Jan, 2010 [facility] [place] [facility] [address] [id number] [place] [address]- 3126 Nov, [facility] [place] [facility] [address] [id number] [place] [address]- 6475 14 Sep, 2009 [facility] [place] [facility] [address] [id number] [place] [address]- 6065 August, [facility] [place] [facility] [address] [id number], [place] [address]- 9823 30 Mar, 2009 [facility] [place] [facility] [address] [id number], [place] [address] 1931 Mar, [facility] [place] [facility] [address] [facility] [id number], [place] [address]- 4405 17 Feb, 2009 [facility] [place] [facility] [address] [facility] [id number], [place] [address]- 1092 10 Feb, 2009 [facility] [place] [facility] [address] [id number], [place] [address]- 5966 10 Feb, 2009 [facility] [place] [facility] [address] [id number], [place] [address]- 0298 10 Feb, 2009 [facility] [place] [facility] [address] [id number], [place] [address]- 1068 06 Feb, 2009 [facility] [place] [facility] [address] [id number], [place] [address]- 0722 27 Jan, 2009 [facility] [place] [facility] [address] [id number], [place] [address]- 8916 Jan, [facility] [id number], [place] [address] 8472 Jan, [facility] [id number], [place] [address]- 9486 Jan, [facility] [id number], [place] [address]- 6415 Nov, [facility] [id number], [place] [address]- 2012 Sep, [facility] [id number], [place] [address]- 4233 August, [facility] [id number], [place] [address]- 7909 Jul, [facility] [id number], [place] [address]- 6091 May, IMMUNIZATIONS No Known Immunizations SOCIAL HISTORY Never Assessed REASON FOR VISIT ER f/u- Knee surgery 2 weeks ago-- Also went to ER shortly after surgery for a rash on her leg- Chapincito Rasheed RN PLAN OF CARE Activity Details Follow Up 3 Months Reason: VITAL SIGNS Height 64 in 2016-12-02 Weight 149 lbs 2016-12-02 Temperature 98.0 degrees Fahrenheit 2016-12-02 Heart Rate 78 bpm 2016-12-02 Respiratory Rate 18 2016-12-02 BMI 25.57 kg/m2 2016-12-02 Blood pressure systolic 110 mmHg 2016-12-02 Blood pressure diastolic 70 mmHg 2016-12-02 MEDICATIONS Medication Instructions Dosage Frequency Start Date End Date Duration Status Topamax 25 MG Orally Twice a day 1 AM, 2 hs 12h Active Benefiber - Active Trazodone HCl 150 MG Orally Once a day 1 tablet at bedtime as needed 24h Dec, 30 days Active Aricept 10 MG TAKE 1 TABLET ONE TIME DAILY 90 Active Symbicort 160-4.5 MCG/ACT INHALE 2 PUFFS TWICE DAILY, IN THE MORNING AND IN THE EVENING 90 Active Abilify 5 MG Orally Once a day 1 tablet 24h Oct, 30 day(s) Active Cetirizine HCl 10 MG Orally Once a day 1 tablet as needed 24h Active Toprol XL 25 MG Orally Once a day 1 tablet 24h Active Ambien 5 MG Orally Once a day 1 tablet at bedtime 24h Jul, 30 days Active Xolair 150 mg inject 1.2 milliliters (150 mg) by subcutaneous route every 4 weeks Sep, Active Trospium Chloride 20 MG Orally Once a day 1 tablet at bedtime on an empty stomach 24h Active Namenda 10 MG TAKE 1 TABLET ONE TIME DAILY 90 Active Oxygen 5 inhalation all the time Active Albuterol Sulfate 2.5 mg /3 mL (0.083 %) 1 Each by Inhalation route every 4 hours for cough and wheeze PRN for wheezing or cough Jun, Active HydrOXYzine HCl 25 MG Orally three times a day 1 tablet as needed 8h 30 days Active Tiotropium [place] Monohydrate 18 MCG Inhalation Once a day 1 capsule 24h Active Zofran ODT 4 MG Orally every 4 hrs 1 tablet on the tongue and allow to dissolve 4h Jul, 1 days Active Welchol 3.75 GM Orally Once a day 1 packet mixed with water with a meal 24h Active Ropinirole HCl 2 MG TAKE 1 TABLET ONE TIME DAILY AT BEDTIME 90 Active Omeprazole 40 MG Orally Once a day 1 capsule 24h Active Myrbetriq 50 MG Orally Once a day 1 tablet 24h Active Baclofen 10 mg Orally 2 times a day 1 tablet with food or milk 12h 24 May, 2016 30 day(s) Active Primidone 250mg Orally Three times a day 1 tablet 8h Active Singulair 10 MG Orally Once a day take 1 tablet (10 mg) by oral route once daily in the evening 24h Oct, Active Lomotil 2.5-0.025 mg Orally Four times a day TWO TABLETS 6h 30 Active Gabapentin 600 MG TAKE 1 TABLET THREE TIMES DAILY (CHANGE IN DIRECTIONS) 90 Active Prednisone Active Abilify 20 MG Orally Once a day 1 tablet 24h Jul, 30 days Active Alendronate Sodium 70 MG TAKE 1 TABLET EVERY WEEK 84 Active Ventolin HFA 108 (90 Base) MCG/ACT INHALE 2 PUFFS EVERY 4 HOURS NEEDED 16 Active Trintellix 20 MG Orally Once a day 1 tablet 24h Dec, 30 days Active Nitroglycerin 0.4 MG Active Xanax 0.5 MG Orally Three times a day 1 tablet 8h Mar, 30 days Active Simvastatin 20mg Orally Once a day 1 tablet in the evening 24h Active Eliquis 5 MG Orally 2 times a day 12h Active Fluticasone Propionate 50 MCG/ACT Nasally 2 times a day 2 sprays in each nostril 12h Active RESULTS No Results PROCEDURES Procedure Date Ordered Result Body Site [facility] VISIT ESTABLISHED PATIENT Dec 02, 2016 INSTRUCTIONS MEDICATIONS ADMINISTERED No Known Medications MEDICAL [...]
--- OUTSIDE RECORDS SUMMARY | 2017-09-11 08:13 | XMS REPORT ---
Author Author SENAIT DUNLAP [facility] Address [address] [place] [address] Care Team Providers Care Soldering Machine Feeder Name Role Phone SENAIT DUNLAP Unavailable PROBLEMS Type Condition ICD9-CM Code BYS41-WE Code Onset Dates Condition Status SNOMED Code Problem History of common bile duct surgery Z98.89 Active 905391737 Problem Barretts esophagus K22.70 Active 017586539 Problem 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 Active 79977634 Problem Colon polyp K63.5 Active 76849828 Problem Bilateral low back pain without sciatica M54.5 Active 158403723 Problem Screening breast examination Z12.39 Active 250378149 Problem Postmenopausal Z78.0 Active 99665449 Problem Osteopenia M85.80 Active 694112906 Problem Cigarette nicotine dependence without complication F17.210 Active 92762502 Problem Type 2 diabetes mellitus with diabetic peripheral angiopathy without gangrene E11.51 Active 459724240 Problem Vascular dementia without behavioral disturbance F01.50 Active [id number] Problem Unspecified atherosclerosis of [place] arteries of extremities, unspecified extremity I70.209 Active 535439218924253 Problem Arthritis M19.90 Active 9865538 Problem Chronic atrial fibrillation I48.2 Active 186557397 Problem Chronic obstructive pulmonary disease with acute lower respiratory infection J44.0 Active 436366255 Problem Other chronic pancreatitis K86.1 Active 024033983 Problem Stress incontinence of urine N39.3 Active 70967332 Problem Controlled type 2 diabetes mellitus without complication, without long -term current use of insulin E11.9 Active 257164867 Problem Unspecified psychosis F29 Active 66376994 Problem Xeroderma Q80.9 Active 53855421 Problem COPD (chronic obstructive pulmonary disease) J44.9 Active 09165599 Problem Dementia without behavioral disturbance, unspecified dementia type F03.90 Active 82701094 Problem Gastroparesis K31.84 Active 668136725 Problem Type 2 diabetes mellitus with diabetic neuropathy, without long-term current use of insulin E11.40 Active 71591645 Problem Osteoporosis M81.0 Active 62354107 Problem Atherosclerosis of [place] artery of both lower extremities with intermittent claudication I70.213 Active 279412253345307 Problem Hyperlipidemia E78.5 Active 47488025 Problem Diabetic polyneuropathy associated with type 2 diabetes mellitus E11.42 Active 85017552 Problem Essential tremor G25.0 Active 82243042 Problem Atherosclerotic heart disease of [place]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 I25.118 Active 4106447437237 Problem Generalized anxiety disorder F41.1 Active 685529809 Problem Gastroesophageal reflux disease, esophagitis presence not specified K21.9 Active 605955589 Problem Coronary artery disease involving [place] coronary artery of [place] 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 I25.118 Active 8983614906120 Problem Postconcussion syndrome F07.81 Active 19214110 Problem Chronic pain syndrome G89.4 Active 076268571 Problem Migraine without aura and without status migrainosus, not intractable G43.009 Active 586786325 Problem Paroxysmal atrial fibrillation I48.0 Active 604493440 Problem Migraine without aura and with status migrainosus, not intractable G43.001 Active 551570775 Problem Cervicalgia M54.2 Active 1446712464115 Problem Acute exacerbation of chronic obstructive pulmonary disease (COPD) J44.1 Active 682996842 Problem Major depressive disorder, recurrent episode, moderate F33.1 Active 082395683 Problem Crohn''s disease without complication, unspecified gastrointestinal tract location K50.90 Active 21805846 Problem Chronic fatigue R53.82 Active 05024297 Problem Bipolar affective disorder, currently depressed, moderate F31.32 Active 953140877 ALLERGIES Substance Reaction Event Type Date Status Penicillin V Potassium rash Drug Allergy Jan, Active Neosporin rash Drug Allergy Jan, Active Ibuprofen rash Drug Allergy Jan, Active Glipizide hives, nausea Drug Allergy Jan, Active ENCOUNTERS Encounter Location Date Diagnosis [facility] [address] [facility] [id number] [address] Oct, [facility] [address] [id number] [address] Sep, [facility] [address] [id number] [address] August, [facility] [id number] [place] [address] 60295- 2796 August, Type 2 diabetes mellitus with diabetic neuropathy, without long-term current use of insulin E11.40 and Elevated liver enzymes R74.8 [facility] [id number] [place] [address] 40121- 8339 Jul, [facility] [address] 39472- 0025 Jul, Cough R05 [facility] [address] 25034- 3441 Jul, [facility] [address] 52596- 1422 Jul, [facility] [address] 89564- 9306 Jul, Bipolar affective disorder, currently depressed, moderate F31.32 ; Vascular dementia without behavioral disturbance F01.50 and Generalized anxiety disorder F41.1 [facility] [id number] [place] [address] 39441- 7085 Jul, [facility] [id number] [place] [address] 28744- 4332 Jul, Type 2 diabetes mellitus with diabetic neuropathy, without long-term current use of insulin E11.40 and Elevated liver enzymes R74.8 [facility] [id number] [place] [address] 69139- 4322 Jul, [facility] [id number] [place] [address] 69219- 7944 Jul, [facility] [address] 10353- 3274 Jul, [facility] [id number] [place] [address] 97916- 3188 Jul, Post-menopausal Z78.0 [facility] [address] [place] [address] 3003 Jul, Stress incontinence of urine N39.3 [facility] [id number] [place] [address] 00843- 6667 Jul, [facility] [id number] [place] [address] 66153- 0247 Jul, [facility] [address] 09602- 5654 Jul, Stress incontinence of urine N39.3 and Cough R05 [facility] [id number] [place] [address] 82443- 5527 Jul, [facility] [address] 93224- 2624 Jul, [facility] [id number] [place] [address] 29006- 7783 Jul, [facility] [address] 70315- 7652 Jul, Gastroesophageal reflux disease, esophagitis presence not specified K21.9 [facility] [id number] [place] [address] 86549- 4870 Jun, Diabetic polyneuropathy associated with type 2 diabetes mellitus E11.42 [place] [id number] [place] [address] 87863- 3660 Jun, Diabetic polyneuropathy associated with type 2 diabetes mellitus E11.42 ; Coronary artery disease involving [place] coronary artery of [place] 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 I25.118 and Paroxysmal atrial fibrillation I48.0 [facility] [id number] [place] [address] 55313- 2731 Jun, [facility] [id number] [place] [address] 09291- 8496 Jun, [facility] [id number] [place] [address] 87710- 1187 Jun, Gastroenteritis K52.9 [place] [id number] [place] [address] 10936- 1635 Jun, Gastroenteritis K52.9 [place] [id number] [place] [address] 32392- 3640 Jun, [facility] [id number] [place] [address] 34543- 0211 Jun, [place] [id number] [place] [address] 44378- 0197 Jun, Sprain of right ankle, unspecified ligament, initial encounter S93.401A ; Type 2 diabetes mellitus with diabetic neuropathy, without long-term current use of insulin E11.40 ; Atherosclerosis of [place] artery of both lower extremities with intermittent claudication I70.213 ; Atherosclerotic heart disease of [place]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 I25.118 ; Chronic atrial fibrillation I48.2 and Crohn''s disease without complication, unspecified gastrointestinal tract location K50.90 [facility] [id number] [place] [address] 77507 -2218 17 Jun, 2017 Cough R05 and Chronic obstructive pulmonary disease with acute lower respiratory infection J44.0 [place] [id number] [place] [address] 16250- 8526 16 Jun, 2017 [place] [id number] [place] [address] 77856- 7157 15 Jun, 2017 Coughing R05 ; Unspecified atherosclerosis of [place] arteries of extremities, unspecified extremity I70.209 ; Type 2 diabetes mellitus with diabetic peripheral angiopathy without gangrene E11.51 ; Crohn''s disease without complication, unspecified gastrointestinal tract location K50.90 ; Other chronic pancreatitis K86.1 and Chronic atrial fibrillation I48.2 [facility] [id number] [place] [address] 54105 -6960 Jun, [facility] [id number] [place] [address] 80215- 2484 06 Jun, 2017 Bipolar affective disorder, currently depressed, moderate F31.32 ; Vascular dementia without behavioral disturbance F01.50 and Generalized anxiety disorder F41.1 [facility] [address] [address] 49[address] May, Generalized anxiety disorder F41.1 [facility] [id number] [place] [address] 42723- 7606 May, [facility] [id number] [place] [address] 83447- 8093 May, [facility] [id number] [place] [address] 20493- 9594 May, Coughing R05 [facility] [id number] [place] [address] 41001- 2172 May, [facility] [id number] [place] [address] 73094- 9360 May, Bipolar affective disorder, currently depressed, moderate F31.32 ; Vascular dementia without behavioral disturbance F01.50 and Generalized anxiety disorder F41.1 [facility] [id number] [place] [address] 73619- 3313 Apr, Generalized anxiety disorder F41.1 [facility] [id number] [place] [address] 74590- 1033 Apr, [facility] [id number] [place] [address] 12207- 1945 Apr, Vascular dementia without behavioral disturbance F01.50 ; Generalized anxiety disorder F41.1 and Bipolar affective disorder, currently depressed, moderate F31.32 [facility] [address] [address] 7166 Apr, Generalized anxiety disorder F41.1 [facility] [id number] [place] [address] 77624 -8135 Apr, Cough R05 and Acute exacerbation of chronic obstructive pulmonary disease (COPD) J44.1 [facility] [id number] [place] [address] 29009- 1022 Apr, [facility] [id number] [place] [address] 05540 -6016 Mar, Cough R05 and Cigarette nicotine dependence without complication F17.210 [facility] [id number] [place] [address] 98020- 3405 Mar, [facility] [id number] [place] [address] 59383- 9661 Feb, Generalized anxiety disorder F41.1 ; Major depressive disorder, recurrent episode, moderate F33.1 ; Vascular dementia without behavioral disturbance F01.50 and Unspecified psychosis F29 [place] [address] 55335- 5324 Feb, [facility] [id number] [place] [address] 75584- 6542 Feb, [facility] [address] 49377- 7672 Feb, Generalized anxiety disorder F41.1 [place] [id number] [place] [address] 82734- 6539 Feb, Generalized anxiety disorder F41.1 [facility] [id number] [place] [address] 30825- 9351 06 Feb, 2017 Dizziness R42 ; Chronic fatigue R53.82 ; Postconcussion syndrome F07.81 ; Fall, initial encounter W19.XXXA and Disorientation R41.0 [facility] [id number] [place] [address] 70003- 5961 03 Feb, 2017 Postconcussion syndrome F07.81 ; Injury of head, initial encounter S09.90XA ; Fall, initial encounter W19.XXXA ; Disorientation R41.0 and Acute cystitis with hematuria N30.01 [facility] [id number] [place] [address] 14316- 0623 Jan, Gastroesophageal reflux disease, esophagitis presence not specified K21.9 ; Post-menopausal Z78.0 and Migraine without aura and without status migrainosus, not intractable G43.009 [place] [id number] [place] [address] 07693- 6065 Jan, [place] [id number] [place] [address] 01972- 0772 Jan, Generalized anxiety disorder F41.1 ; Major depressive disorder, recurrent episode, moderate F33.1 ; Vascular dementia without behavioral disturbance F01.50 and Unspecified psychosis F29 [place] [id number] [place] [address] 11974- 3080 Jan, Pneumonia of left lower lobe due to infectious organism J18.1 [place] [address] 20620- 6136 Jan, Migraine without aura and with status migrainosus, not intractable G43.001 [facility] [id number] [place] [address] 35660 -4703 Jan, Migraine without aura and without status migrainosus, not intractable G43.009 [place] [id number] [place] [address] 92503- 4739 Dec, Hematoma T14.8 [place] [id number] [place] [address] 16917- 9667 Dec, [facility] [id number] [place] [address] 77342 -4663 Nov, Fatigue, unspecified type R53.83 [place] [id number] [place] [address] 14430- 0063 Nov, Scabies B86 and Coronary artery disease involving [place] coronary artery of [place] 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 I25.118 [place] [id number] [place] [address] 17000- 1019 Nov, [place] [id number] [place] [address] 37483- 3579 Nov, [place] [id number] [place] [address] 52374- 7719 Oct, [facility] [id number] [place] [address] 38216- 8666 Oct, Generalized anxiety disorder F41.1 and Major depressive disorder, recurrent episode, moderate F33.1 [facility] [id number] [place] [address] 10984- 4204 Oct, Cramp of both lower extremities R25.2 [facility] [id number] [place] [address] 39599- 4578 18 Oct, 2016 Leg cramps R25.2 [facility] [id number] [place] [address] 95200- 2495 Oct, Chronic pain syndrome G89.4 [facility] [id number] [place] [address] 31423- 7689 Oct, [facility] [id number] [place] [address] 22859- 0927 14 Oct, 2016 [facility] [id number] [place] [address] 34863- 5170 Oct, Routine gynecological examination Z01.419 and Screening for breast cancer Z12.31 [facility] [address] [place] [address] 37658- 6974 Sep, Diarrhea R19.7 [facility] [id number] [place] [address] 08883- 0941 Sep, Back pain M54.9 [facility] [id number] [place] [address] 25051- 0538 Sep, [facility] [id number] [place] [address] 88928- 0452 Sep, [facility] [id number] [place] [address] 09176 -8851 August, Xeroderma Q80.9 [facility] [id number] [place] [address] 87540- 9323 August, Dementia without behavioral disturbance, unspecified dementia type F03.90 [place] [address] 07564- 5253 August, Chronic pain syndrome G89.4 [place] [address] 32574- 2905 August, [place] [address] 25406- 4124 August, Hyperlipidemia E78.5 ; Other fatigue R53.83 and Other specified hypotension I95.89 [facility] [address] 68197 -5892 August, Dysuria R30.0 ; Other fatigue R53.83 and Other specified hypotension I95.89 [place] [address] 73346- 2891 August, [place] [address] 56686- 9582 Jul, Pain in left knee M25.562 and Gastroenteritis K52.9 [place] [address] 45377- 4611 Jul, [place] [address] 80543- 1324 Jul, Diarrhea R19.7 [facility] [place] [address] 10447 -1826 Jul, Spider bite, accidental or unintentional, initial encounter T63.301A [place] [address] 93738- 5898 Jul, Primary osteoarthritis of right knee M17.11 and Arthritis M19.90 [place] [address] 99971- 1251 Jul, Generalized anxiety disorder F41.1 and Major depressive disorder, recurrent episode, moderate F33.1 [facility] [id number] [place] [address] 41207- 2244 07 Jul, 2016 Type 2 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 and Temporal headache R51 [facility] [id number] [place] [address] 37242- 5513 06 Jul, 2016 Back pain M54.9 [place] [address] 86580- 9162 05 Jul, 2016 [place] [address] 04733- 2816 Jul, [place] [address] 70663- 7373 30 Jun, 2016 Nausea R11.0 [facility] [place] [address] 37969 -8010 23 Jun, 2016 Acute suppurative otitis media of both ears without spontaneous rupture of tympanic membranes, recurrence not specified H66.003 and COPD exacerbation J44.1 [place] [address] 07797- 2091 21 Jun, 2016 Generalized anxiety disorder F41.1 [place] [address] 95472- 6178 16 Jun, 2016 [facility] [place] [id number] [place] [address] 58075 -8232 Jun, [facility] [address] 64436 -4060 13 Jun, 2016 Shortness of breath R06.02 and COPD exacerbation J44.1 [place] [address] 48181- 0813 10 Jun, 2016 Eczema, unspecified type L30.9 [place] [address] 44971- 5124 09 Jun, 2016 [place] [address] 96296- 3454 May, [place] [address] [address] [id number] [place] [address] 48422- 0109 May, Muscle cramping R25.2 [place] [id number] [place] [address] 88366- 8755 May, [place] [address] 87294- 6162 Apr, Diarrhea R19.7 [place] [id number] [place] [address] 05195- 1158 Apr, [place] [address] 43808- 8733 Apr, Chronic pain syndrome G89.4 [place] [address] [id number] [place] [address] 56476- 9518 Apr, Cramp of both lower extremities R25.2 and Vascular dementia without behavioral disturbance F01.50 [place] [address] [id number] [place] [address] 38118- 4015 Apr, Type 2 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 and Cigarette nicotine dependence without complication F17.210 [place] [id number] [place] [address] 34777- 2678 Mar, Generalized anxiety disorder F41.1 [place] [address] [place] [id number] [place] [address] 92416- 0464 Feb, Generalized anxiety disorder F41.1 and Major depressive disorder, recurrent episode, moderate F33.1 [place] [address] [place] [address] [id number] [place] [address] 22483- 4790 Feb, [facility] [id number] [place] [address] 68442 -5001 Feb, Dysuria R30.0 and Acute cystitis with hematuria N30.01 [place] [address] [place] [id number] [place] [address] 55505- 2482 Jan, [facility] [id number] [place] [address] 81032- 1293 Jan, [facility] [id number] [place] [address] 29751- 9674 Jan, [facility] [id number] [place] [address] 98036- 2457 Jan, [facility] [address] 33613 -2551 10 Jan, 2016 Wasp sting, accidental or unintentional, initial encounter T63.461A [place] [address] 86206- 9520 06 Jan, 2016 Encounter for immunization Z23 [facility] [id number] [place] [address] 16379- 9532 05 Jan, 2016 [facility] [id number] [place] [address] 63015- 7803 Jan, [facility] [id number] [place] [address] 31376- 6713 28 Dec, 2015 Generalized anxiety disorder F41.1 and Major depressive disorder, recurrent episode, moderate F33.1 [facility] [id number] [place] [address] 75581- 3464 21 Dec, 2015 Routine gynecological examination Z01.419 ; Postmenopausal Z78.0 ; Screening breast examination Z12.39 ; Osteopenia M85.80 and Breast cancer screening Z12.39 [facility] [id number] [place] [address] 37560- 6614 Dec, [facility] [address] [place] [id number] [place] [address] 24618- 8952 19 Dec, 2015 [facility] [address] [place] [id number] [place] [address] 14383- 8717 16 Dec, 2015 [facility] [address] [id number] [place] [address] 16903- 0563 16 Dec, 2015 [facility] [address] [facility] [id number] [address]- 1645 14 Dec, 2015 [facility] [id number] [place] [address]- 5222 Dec, [facility] [id number] [place] [address]- 3960 Nov, [facility] [id number] [place] [address] -8030 Nov, Cough R05 ; Other viral agents as the cause of diseases classified elsewhere B97.89 and Acute upper respiratory infection, unspecified J06.9 [facility] [id number] [place] [address]- 9685 Nov, [facility] [id number] [place] [address] Nov, [facility] [address], [place] [address] 1266 Nov, [facility] [id number] [place] [address] 3120 Nov, [facility] [address], [place] [address] 7778 Nov, [facility] [id number] [place] [address]- 7633 Oct, [facility] [address], [place] [address] 8118 Oct, [facility] [address], [place] [address] 6297 Oct, [facility] [address], [place] [address] 4369 Oct, Chronic pain syndrome G89.4 [facility] [id number] [place] [address]- 5942 Sep, Generalized anxiety disorder F41.1 and Major depressive disorder, recurrent episode, moderate F33.1 [facility] [id number] [place] [address] 20280- 8190 Sep, [facility] [id number] [place] [address] 60535- 8569 Sep, [facility] [id number] [place] [address] 21663- 2594 14 Sep, 2015 Generalized anxiety disorder F41.1 [place] [facility] [id number] [place] [address] 67759- 5180 13 Sep, 2015 Cramp of both lower extremities R25.2 and Cervicalgia M54.2 [place] [facility] [id number] [place] [address] 08588- 5022 06 Sep, 2015 Generalized anxiety disorder F41.1 [place] [id number] [place] [address] 21923- 0455 Sep, [facility] [id number] [place] [address] 27491 -9296 August, Rash R21 ; Itching L29.9 and Allergic response, subsequent encounter T78.40XD [place] [id number] [place] [address] 64647- 2081 August, Primary insomnia F51.01 [facility] [id number] [place] [address] 86951 -0865 August, Rash R21 ; Itching L29.9 and Allergic response, initial encounter T78.40XA [place] [id number] [place] [address] 44631- 5912 August, [facility] [id number] [place] [address] 49678- 6349 August, Cramp of both lower extremities R25.2 [facility] [id number] [place] [address] 28431- 2563 August, Back pain M54.9 [place] [address] [place] [address]- 3527 August, [facility] [address], [place] [address] 4589 August, [facility] [address]100[place], [place] [address] August, Cramp of both lower extremities R25.2 [facility] [address], [place] [address]- 4868 August, [facility] [address], [place] [address]- 4474 August, Syncope R55 ; Paroxysmal atrial fibrillation I48.0 ; Dementia without behavioral disturbance, unspecified dementia type F03.90 and Chronic pain syndrome G89.4 [facility] [address], [place] [address] 6414 August, Type 2 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 and Syncope R55 [facility] [address], [place] [address]- 4925 Jul, [facility] [address], [place] [address]- 6520 Jul, [facility] [address], [place] [address]- 5669 Jul, [facility] [address], [place] [address]- 0486 Jul, [facility] [address], [place] [address]- 1494 Jul, [facility] [address], [place] [address]- 2806 Jul, UTI (urinary tract infection) N39.0 [facility] [address], [place] [address] 1977 Jul, [facility] [address], [place] [address]- 6849 Jul, Major depressive disorder, recurrent episode, moderate F33.1 and Generalized anxiety disorder F41.1 [facility] [id number] [place] [address] 41155- 4273 14 Jul, 2015 Generalized anxiety disorder F41.1 [facility] [id number] [place] [address] 80191- 3595 14 Jul, 2015 Diarrhea R19.7 [facility] [id number] [place] [address] 08449- 8873 14 Jul, 2015 [facility] [id number] [place] [address] 12108- 2881 Jun, [facility] [id number] [place] [address] 33025- 4516 Jun, Eczema L30.9 [facility] [id number] [place] [address] 08467- 9968 Jun, [facility] [id number] [place] [address] 04940- 7542 Jun, COPD (chronic obstructive pulmonary disease) J44.9 [facility] [id number] [place] [address] 53171- 6084 Jun, [facility] [id number] [place] [address] 48032- 9942 Jun, Major depressive disorder, recurrent episode, moderate F33.1 and Generalized anxiety disorder F41.1 [facility] [address], [place] [address]- 1814 May, [facility] [id number] [place] [address] 43241- 8109 May, UTI (urinary tract infection) N39.0 [facility] [address], [place] [address]- 7082 17 May, 2015 [facility] [id number] [place] [address] 65263- 4609 May, [facility] [address], [place] [address]- 5944 May, [facility] [address], [place] [address]- 9060 May, [facility] [address], [place] [address]- 9113 Apr, Major depressive disorder, recurrent episode, moderate F33.1 and Generalized anxiety disorder F41.1 [facility] [address], [place] [address]- 9870 Apr, COPD (chronic obstructive pulmonary disease) J44.9 [facility] [id number] [place] [address] 52171- 6842 Apr, [facility] [id number] [place] [address] 31440- 4881 Apr, Atrial flutter I48.92 [facility] [address], [place] [address]- 4268 Apr, [facility] [id number] [place] [address] 75802- 4932 Apr, [facility] [address], [place] [address]- 6834 Mar, [facility] [address], [place] [address]- 5137 Mar, [facility] [address], [place] [address]- 0718 Mar, [facility] [address], [place] [address]- 7651 Mar, Hyperlipidemia E78.5 ; Type 2 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 ; Major depressive disorder, recurrent episode, moderate F33.1 and Chronic pain syndrome G89.4 [facility] [address], [place] [address]- 6001 Mar, [facility] [address] [facility] [id number], [place] [address]- 9286 Mar, [facility] [address] [facility] [id number], [place] [address]- 6892 Mar, [facility] [address] [facility] [id number], [place] [address]- 1170 Mar, [facility] [address] [facility] [id number] [place] [address] 08833- 5368 Feb, COPD (chronic obstructive pulmonary disease) J44.9 and Back pain M54.9 [facility] [address] [facility] [id number] [place] [address] 16795- 6212 Feb, [facility] [address] [facility] [id number], [place] [address]- 7268 Feb, [facility] [id number] [place] [address] 13054- 5180 Feb, [facility] [address] [facility] [id number], [place] [address]- 6891 Feb, [facility] [address], [place] [address]- 5134 Feb, [facility] [address], [place] [address]- 9947 Feb, [facility] [address], [place] [address]- 6139 Feb, [facility] [address] [facility] [id number], [place] [address]- 7703 Feb, [facility] [id number], [place] [address]- 7763 Feb, Diabetes E11.9 ; Back pain M54.9 and COPD (chronic obstructive pulmonary disease) J44.9 [facility] [address] [facility] [id number], [place] [address]- 8205 Jan, [facility] [address], [place] [address]- 5324 Jan, Major depression, recurrent F33.9 and Generalized anxiety disorder F41.1 [facility] [id number] [place] [address] 26167- 7319 Jan, Chronic pain G89.29 [facility] [address], [place] [address]- 6574 Jan, [facility] [id number] [place] [address] 71227- 6867 Jan, [facility] [id number] [place] [address] 72577- 9168 Jan, [facility] [id number] [place] [address] 23134- 7832 Jan, [facility] [id number] [place] [address] 31428- 7435 Jan, Nicotine dependence F17.200 [facility] [id number] [place] [address] 78679- 2894 Jan, Nicotine dependence F17.200 and Back pain M54.9 [facility] [id number] [place] [address] 15289- 5378 Jan, [facility] [id number] [place] [address] 91033- 7935 28 Dec, 2014 [facility] [id number] [place] [address] 89198- 7892 25 Dec, 2014 Anxiety, generalized 300.02 and Major depression, recurrent 296.30 [facility] [id number] [place] [address] 91186- 0871 24 Dec, 2014 [facility] [id number] [place] [address] 44143- 6368 21 Dec, 2014 [facility] [address], [place] [address]- 4033 17 Dec, 2014 [facility] [id number] [place] [address] 68669- 9414 15 Dec, 2014 [facility] [id number] [place] [address] 93938- 8165 14 Dec, 2014 [facility] [id number] [place] [address] 17339- 0125 11 Dec, 2014 [facility] [id number] [place] [address] 49762- 0032 10 Dec, 2014 [facility] [id number] [place] [address] 23250- 3845 08 Dec, 2014 Skin tear 879.8 [facility] [id number] [place] [address] 88125- 9375 08 Dec, 2014 Routine gynecological examination V72.31 ; Breast cancer screening V76.10 and Family history of breast cancer in first degree relative V16.3 [facility] [id number] [place] [address] 35121- 5986 Dec, [facility] [id number] [place] [address] 14955- 6058 Dec, [facility] [id number] [place] [address] 89721- 4493 Nov, [facility] [id number] [place] [address] 99371- 9552 Nov, [facility] [id number] [place] [address] 54843- 2432 Nov, Poor balance 781.99 and Vascular dementia, uncomplicated 290.40 [facility] [id number] [place] [address] 33056- 4054 Nov, [facility] [id number] [place] [address] 45110- 4748 Nov, Major depression, recurrent 296.30 and Anxiety, generalized 300.02 [facility] [id number] [place] [address] 19907- 4107 Nov, [facility] [address], [place] [address]- 1175 Nov, [facility] [address], [place] [address]- 6741 Nov, [facility] [address], [place] [address]- 0194 Nov, [facility] [id number] [place] [address] 13532- 3296 Nov, Vascular dementia, uncomplicated 290.40 and Lumbago 724.2 [facility] [id number] [place] [address] 48073- 2327 Nov, [facility] [id number], [place] [address]- 1236 Nov, [facility] [id number] [place] [address] 71014- 1460 Nov, [facility] [address], [place] [address]- 8874 Oct, [facility] [address], [place] [address]- 1795 Oct, [facility] [address], [place] [address]- 3873 Oct, [facility] [address], [place] [address]- 2937 Oct, COPD (chronic obstructive pulmonary disease) 496 and Hyperlipidemia 272.4 [facility] [address], [place] [address]- 0023 Oct, Major depression, recurrent 296.30 and Anxiety, generalized 300.02 [facility] [address], [place] [address]- 7636 Oct, [facility] [address], [place] [address]- 8727 Oct, [facility] [address], [place] [address]- 4885 Oct, [facility] [id number] [place] [address] 29192- 2851 Sep, Lumbago 724.2 and Anxiety state, unspecified 300.00 [facility] [id number] [place] [address] 47054- 9222 Sep, [facility] [id number] [place] [address] 74850- 0491 Sep, [facility] [id number] [place] [address] 73043- 8241 August, [facility] [id number] [place] [address] 55445- 1639 August, Major depression, recurrent 296.30 ; Anxiety, generalized 300.02 and No condition on [place] II V71.09 [facility] [id number] [place] [address] 76031- 0481 August, [facility] [address], [place] [address]- 3593 August, [facility] [address], [place] [address]- 7416 Jul, [facility] [address], [place] [address]- 1725 Jul, [facility] [address], [place] [address]- 7604 Jul, [facility] [address], [place] [address]- 3397 Jun, [facility] [id number], [place] [address]- 2838 Jun, [facility] [address] 5516 Jun, [facility] [id number], [place] [address]- 1856 27 Jun, 2014 [facility] [place] [facility] [address] [id number] [place] [address]- 9221 26 Jun, 2014 [facility] [place] [facility] [address] [id number] [place] [address]- 5124 Jun, [facility] [place] [facility] [address] [id number] [place] [address]- 8135 23 Jun, 2014 [facility] [place] [facility] [address] [id number] [place] [address]- 0909 17 Jun, 2014 [facility] [place] [facility] [address] [id number] [place] [address]- 6441 Jun, [facility] [place] [facility] [address] [id number] [place] [address]- 4656 13 Jun, 2014 [facility] [place] [facility] [address] [id number] [place] [address]- 2895 Jun, [facility] [place] [facility] [address] [id number] [place] [address]- 3125 10 Jun, 2014 [facility] [place] [facility] [address] [id number] [place] [address]- 6561 Jun, [facility] [place] [facility] [address] [id number] [place] [address]- 5057 Jun, [facility] [place] [facility] [address] [id number] [place] [address]- 0630 Jun, [facility] [place] [facility] [address] [id number] [place] [address]- 2206 Jun, [facility] [place] [facility] [address] [id number] [place] [address]- 7344 May, [facility] [place] [facility] [address] [id number] [place] [address]- 3606 May, [facility] [place] [facility] [address] [id number] [place] [address]- 5872 May, [facility] [place] [facility] [address] [id number] [place] [address]- 4770 May, 2014 [facility] [place] [facility] [address] [id number] [place] [address]- 6356 May, 2014 [facility] [place] [facility] [address] [id number] [place] [address]- 8553 May, 2014 [facility] [place] [facility] [address] [id number] [place] [address]- 8388 May, 2014 [facility] [place] [facility] [address] [id number] [place] [address]- 7531 May, 2014 [facility] [place] [facility] [address] [id number] [place] [address]- 9427 May, 2014 [facility] [place] [facility] [address] [facility] [id number] [place] [address]- 9004 May, 2014 [facility] [place] [facility] [address] [id number] [place] [address]- 9942 May, 2014 [facility] [place] [facility] [address] [id number] [place] [address]- 5334 May, 2014 [facility] [place] [facility] [address] [facility] [id number] [place] [address]- 6918 May, [facility] [place] [facility] [address] [facility] [id number] [place] [address]- 1630 May, [facility] [place] [facility] [address] [id number], [place] [address]- 6664 Apr, [facility] [place] [facility] [address] [id number] [place] [address]- 2911 Apr, [facility] [place] [facility] [address] [id number] [place] [address]- 8729 Apr, [facility] [place] [facility] [address] [facility] [id number] [place] [address]- 7036 Apr, [facility] [place] [facility] [address] [id number] [place] [address]- 8763 Apr, [facility] [place] [facility] [address] [id number] [place] [address]- 8587 Apr, [facility] [place] [facility] [address] [id number] [place] [address]- 3632 Apr, [facility] [place] [facility] [address] [id number] [place] [address]- 8277 Apr, [facility] [place] [facility] [address] [id number] [place] [address]- 8504 Apr, [facility] [place] [facility] [address] [id number] [place] [address]- 2381 Apr, [facility] [place] [facility] [address] [id number] [place] [address]- 8845 Apr, [facility] [place] [facility] [address] [id number] [place] [address]- 1011 Apr, [facility] [place] [facility] [address] [id number] [place] [address]- 6770 Mar, [facility] [place] [facility] [address] [id number] [place] [address]- 5971 Mar, [facility] [place] [facility] [address] [facility] [id number] [place] [address]- 9814 30 Mar, 2014 [facility] [place] [facility] [address] [id number] [place] [address]- 5442 30 Mar, 2014 [facility] [place] [facility] [address] [id number] [place] [address]- 5925 29 Mar, 2014 [facility] [place] [facility] [address] [id number] [place] [address]- 6043 Mar, [facility] [place] [facility] [address] [id number] [place] [address]- 6247 Mar, [facility] [place] [facility] [address] [id number] [place] 6976 Mar, [facility] [place] [facility] [address] [id number] [place] [address] Mar, [facility] [place] [facility] [address] [id number] [place] [address] Mar, [facility] [place] [facility] [address] [id number] [place] [address]- [address] Mar, [facility] [place] [facility] [address] [id number] [place] [address]- [address] Mar, [facility] [place] [facility] [address] [id number] [place] [address] Mar, [facility] [place] [facility] [address] [id number] [place] [address] Mar, [facility] [place] [facility] [address] [id number] [place] [address] Mar, [facility] [place] [facility] [address] [id number] [place] [address]- [address] Mar, [facility] [place] [facility] [address] [id number] [place] [address] Mar, [facility] [place] [facility] [address] [id number] [place] [address]- [address] Mar, [facility] [place] [facility] [address] [id number] [place] [address]- [address] Mar, [facility] [place] [facility] [address] [id number] [place] [address]- [address] Mar, [facility] [place] [facility] [address] [id number] [place] [address]- [address] Feb, [facility] [place] [facility] [address] [id number] [place] [address]- [address] Feb, [facility] [place] [facility] [address] [id number] [place] [address] Feb, [facility] [place] [facility] [address] [id number] [place] [address]- [address] Feb, [facility] [place] [facility] [address] [id number] [place] [address]- [address] Feb, [facility] [place] [facility] [address] [id number] [place] [address]- [address] Feb, [facility] [place] [facility] [address] [id number] [place] [address]- [address] Feb, [facility] [place] [facility] [address] [id number] [place] [address]- [address] Feb, [facility] [place] [facility] [address] [id number] [place] [address]- [address] Feb, [facility] [place] [facility] [address] [id number] [place] [address]- [address]90 Feb, [facility] [place] [facility] [address] [id number] [place] [address]- 3310 Feb, [facility] [place] [facility] [address] [id number] [place] [address]- [address] Feb, [facility] [place] [facility] [address] [id number] [place] [address]- [address] Feb, [facility] [place] [facility] [address] [id number] [place] [address] Feb, [facility] [place] [facility] [address] [id number], [place] [address] Feb, [facility] [place] [facility] [address] [id number], [place] [address] Feb, [facility] [place] [facility] [address] [id number] [place] [address]- [address] Feb, [facility] [place] [facility] [address] [id number] [place] [address]- [address] Jan, [facility] [place] [facility] [address] [id number] [place] [address] Jan, [facility] [place] [facility] [address] [id number] [place] [address]- [address] Jan, [facility] [place] [facility] [address] [id number] [place] [address]- [address] Jan, [facility] [place] [facility] [address] [id number] [place] [address]- [address] Jan, [facility] [place] [facility] [address] [id number] [place] [address]- [address] Jan, [facility] [place] [facility] [address] [id number] [place] [address]- [address] Jan, [facility] [place] [facility] [address] [id number] [place] [address]- [address] Jan, [facility] [place] [facility] [address] [id number] [place] [address]- [address] Jan, [facility] [place] [facility] [address] [id number] [place] [address]- [address] Jan, [facility] [place] [facility] [address] [id number] [place] [address]- [address] Jan, [facility] [place] [facility] [address] [id number] [place] [address]- [address] Dec, [facility] [place] [facility] [address] [id number] [place] [address]- [address] Dec, [facility] [place] [facility] [address] [id number] [place] [address]- [address] Nov, [facility] [place] [facility] [address] [id number] [place] [address]- [address] Nov, [facility] [place] [facility] [address] [id number] [place] [address] Nov, [facility] [place] [facility] [address] [id number] [place] [address] 3832 Nov, [facility] [place] [facility] [address] [id number] [place] [address] 5021 Nov, [facility] [place] [facility] [address] [id number] [place] [address] 6295 Nov, [facility] [place] [facility] [address] [id number] [place] [address] 3803 Nov, [facility] [place] [facility] [address] [id number] [place] [address] 0090 Oct, [facility] [place] [facility] [address] [id number] [place] [address]- 9033 Oct, [facility] [place] [facility] [address] [id number] [place] [address] 3199 Oct, [facility] [place] [facility] [address] [id number] [place] [address] 8654 Oct, [facility] [place] [facility] [address] [id number] [place] [address]- 4269 Sep, [facility] [place] [facility] [address] [id number] [place] [address] 4385 Sep, [facility] [place] [facility] [address] [id number] [place] [address]- 7183 Sep, [facility] [place] [facility] [address] [id number] [place] [address]- 7868 Sep, [facility] [place] [facility] [address] [id number] [place] [address]- 9214 Sep, [facility] [place] [facility] [address] [id number] [place] [address]- 6895 Sep, [facility] [place] [facility] [address] [id number] [place] [address]- 2767 Sep, [facility] [place] [facility] [address] [id number] [place] [address]- 0900 Sep, [facility] [place] [facility] [address] [id number] [place] [address]- 0874 Sep, [facility] [place] [facility] [address] [id number], [place] [address] 8[address] Sep, [facility] [place] [facility] [address] [id number] [place] [address] 2246 Sep, [facility] [place] [facility] [address] [id number] [place] [address] 7722 Sep, [facility] [place] [facility] [address] [id number] [place] [address]- 2342 Sep, [facility] [place] [facility] [address] [id number] [place] [address]- 5962 Sep, [facility] [place] [facility] [address] [id number] [place] [address]- 8530 August, [facility] [place] [facility] [address] [id number] [place] [address]- 0181 August, [facility] [place] [facility] [address] [id number] [place] [address]- 7556 August, [facility] [place] [facility] [address] [id number] [place] [address]- 4849 August, [facility] [place] [facility] [address] [id number] [place] [address]- 1700 August, [facility] [place] [facility] [address] [id number] [place] [address] 3281 August, [facility] [place] [facility] [address] [id number] [place] [address]- 5353 August, [facility] [place] [facility] [address] [id number] [place] [address]- 3346 August, [facility] [place] [facility] [address] [id number] [place] [address]- 4480 August, [facility] [place] [facility] [address] [id number] [place] [address]- 5885 August, [facility] [place] [facility] [address] [id number] [place] [address]- 4931 August, [facility] [place] [facility] [address] [id number] [place] [address]- 4044 August, [facility] [place] [facility] [address] [id number] [place] [address]- 6142 August, [facility] [place] [facility] [address] [id number] [place] [address]- 5766 August, [facility] [place] [facility] [address] [id number] [place] [address]- 2964 August, [facility] [place] [facility] [address] [id number] [place] [address]- 2815 August, [facility] [place] [facility] [address] [id number] [place] [address]- 9296 August, [facility] [place] [facility] [address] [id number] [place] [address] 5670 August, [facility] [place] [facility] [address] [id number] [place] [address]- 2343 August, [facility] [place] [facility] [address] [id number] [place] [address]- 9358 Jul, [facility] [place] [facility] [address] [id number] [place] [address]- 2759 Jul, [facility] [place] [facility] [address] [id number] [place] [address]- 9507 Jul, [facility] [place] [facility] [address] [id number] [place] [address]- 7362 Jul, [facility] [place] [facility] [address] [id number] [place] [address]- 5490 Jun, [facility] [place] [facility] [address] [id number] [place] [address]- 0283 Jun, [facility] [place] [facility] [address] [id number] [place] [address]- 2560 Jun, [facility] [place] [facility] [address] [id number] [place] [address]- 2317 24 Jun, 2013 [facility] [place] [facility] [address] [id number] [place] [address]- 5660 17 Jun, 2013 [facility] [place] [facility] [address] [id number] [place] [address]- 8430 17 Jun, 2013 [facility] [place] [facility] [address] [facility] [id number] [place] [address]- 2196 14 Jun, 2013 [facility] [place] [facility] [address] [id number] [place] [address]- 1670 14 Jun, 2013 [facility] [place] [facility] [address] [id number] [place] [address]- 1494 Jun, [facility] [place] [facility] [address] [id number] [place] [address]- 2168 Jun, [facility] [place] [facility] [address] [facility] [id number] [place] [address]- 2177 May, [facility] [place] [facility] [address] [id number] [place] [address]- 0231 May, [facility] [place] [facility] [address] [facility] [id number] [place] [address]- 9549 May, [facility] [place] [facility] [address] [facility] [id number] [place] [address]- 7921 May, [facility] [place] [facility] [address] [facility] [id number] [place] [address]- 3601 May, [facility] [place] [facility] [address] [facility] [id number] [place] [address]- 8782 May, [facility] [place] [facility] [address] [facility] [id number] [place] [address]- 2499 20 May, 2013 [facility] [place] [facility] [address] [facility] [id number] [place] [address]- 2797 May, [facility] [place] [facility] [address] [facility] [id number] [place] [address]- 3030 May, [facility] [place] [facility] [address] [id number] [place] [address]- 5516 18 May, 2013 [facility] [place] [facility] [address] [id number] [place] [address]- 3736 May, [facility] [place] [facility] [address] [id number] [place] [address]- 3336 17 May, 2013 [facility] [place] [facility] [address] [id number] [place] [address]- 5956 May, [facility] [place] [facility] [address] [id number] [place] [address]- 3136 May, [facility] [place] [facility] [address] [id number] [place] [address]- 8736 May, [facility] [place] [facility] [address] [id number] [place] [address]- 6868 May, [facility] [place] [facility] [address] [id number] [place] [address]- 4928 May, [facility] [place] [facility] [address] [id number] [place] [address]- 6614 Apr, [facility] [place] [facility] [address] [id number] [place] [address]- 2552 Apr, [facility] [place] [facility] [address] [id number] [place] [address]- 4600 Apr, [facility] [place] [facility] [address] [id number], [place] [address]- 0233 Apr, [facility] [place] [facility] [address] [id number] [place] [address]- 2402 Apr, [facility] [place] [facility] [address] [id number] [place] [address]- 7495 Apr, [facility] [place] [facility] [address] [id number] [place] [address]- 3393 Apr, [facility] [place] [facility] [address] [id number] [place] [address]- 1646 Mar, [facility] [address] [id number] [place] [address]- 0168 Mar, [facility] [address] [id number] [place] [address]- 4666 Mar, [facility] [address] [id number] [place] [address]- 3195 Mar, [facility] [address] [id number] [place] [address]- 2683 Mar, [facility] [address] [id number] [place] [address]- 3221 Mar, [facility] [address] [id number] [place] [address]- 8562 Mar, [facility] [address] [id number] [place] [address]- 4780 Mar, [facility] [address] [id number] [place] [address]- 0605 Mar, [facility] [address] [id number] [place] [address]- 5763 Mar, [facility] [address] [id number] [place] [address]- 0081 Mar, [facility] [address] [id number] [place] [address]- 9373 Feb, [facility] [place] [facility] [address] [id number], [place] [address]- 0299 Feb, [facility] [place] [facility] [address] [id number], [place] [address]- 3243 Feb, [facility] [place] [facility] [address] [id number], [place] [address]- 0711 Feb, [facility] [place] [facility] [address] [id number], [place] [address]- 6038 Feb, [facility] [place] [facility] [address] [id number] [place] [address]- 0069 19 Feb, 2013 [facility] [place] [facility] [address] [id number] [place] [address]- 1966 15 Feb, 2013 [facility] [place] [facility] [address] [id number] [place] [address]- 0966 14 Feb, 2013 [facility] [place] [facility] [address] [id number] [place] [address]- 5215 14 Feb, 2013 [facility] [place] [facility] [address] [id number] [place] [address]- 1858 13 Feb, 2013 [facility] [place] [facility] [address] [id number] [place] [address]- 2711 Feb, [facility] [place] [facility] [address] [id number] [place] [address]- 6826 Feb, [facility] [place] [facility] [address] [id number] [place] [address]- 0962 Feb, [facility] [place] [facility] [address] [id number] [place] [address]- 7222 Feb, [facility] [place] [facility] [address] [id number] [place] [address]- 7083 Feb, [facility] [place] [facility] [address] [id number] [place] [address]- 3406 Feb, [facility] [place] [facility] [address] [id number] [place] [address]- 3189 Jan, [facility] [place] [facility] [address] [id number] [place] [address]- 3309 Jan, [facility] [place] [facility] [address] [id number] [place] [address]- 2609 Jan, [facility] [place] [facility] [address] [id number] [place] [address]- 9309 Jan, [facility] [place] [facility] [address] [id number] [place] [address]- 1095 Jan, [facility] [place] [facility] [address] [id number] [place] [address]- 9687 Jan, [facility] [place] [facility] [address] [id number] [place] [address]- 9937 Jan, [facility] [place] [facility] [address] [id number] [place] [address]- 8916 Jan, [facility] [place] [facility] [address] [id number] [place] [address]- 3104 10 Jan, 2013 [facility] [place] [facility] [address] [id number] [place] [address]- 7731 27 Dec, 2012 [facility] [place] [facility] [address] [id number] [place] [address]- 0001 20 Dec, 2012 [facility] [place] [facility] [address] [id number] [place] [address]- 5666 19 Dec, 2012 [facility] [place] [facility] [address] [id number], [place] [address]- 5288 10 Dec, 2012 [facility] [place] [facility] [address] [id number] [place] [address]- 3232 04 Dec, 2012 [facility] [place] [facility] [address] [id number] [place] [address]- 4797 03 Dec, 2012 [facility] [place] [facility] [address] [id number], [place] [address]- 4213 Nov, [facility] [place] [facility] [address] [id number], [place] [address]- 1158 Nov, [facility] [place] [facility] [address] [id number] [place] [address]- 3332 Nov, [facility] [place] [facility] [address] [id number], [place] [address]- 6264 Nov, [facility] [place] [facility] [address] [id number] [place] [address]- 0583 Nov, [facility] [place] [facility] [address] [id number] [place] [address]- 9867 Nov, [facility] [place] [facility] [address] [id number] [place] [address]- 4838 Nov, [facility] [place] [facility] [address] [id number] [place] [address]- 8434 Nov, [facility] [place] [facility] [address] [id number] [place] [address]- 9256 Nov, [facility] [place] [facility] [address] [id number] [place] [address]- 9708 Nov, [facility] [place] [facility] [address] [id number] [place] [address]- 7738 Oct, [facility] [place] [facility] [address] [id number] [place] [address]- 4364 Oct, [facility] [place] [facility] [address] [id number] [place] [address]- 1429 Oct, [facility] [place] [facility] [address] [id number] [place] [address]- 5043 Oct, [facility] [place] [facility] [address] [id number] [place] [address]- 2580 Oct, [facility] [place] [facility] [address] [id number] [place] [address]- 6066 Oct, [facility] [place] [facility] [address] [id number] [place] [address]- 7172 Oct, [facility] [place] [facility] [address] [id number] [place] [address]- 7113 Oct, [facility] [place] [facility] [address] [id number] [place] [address]- 3533 Sep, [facility] [place] [facility] [address] [id number] [place] [address]1 Sep, [facility] [place] [facility] [address] [id number] [place] [address]- 7052 Sep, [facility] [place] [facility] [address] [id number] [place] [address]- 5027 Sep, [facility] [address] [id number] [place] [address]- 4870 Sep, [facility] [address] [id number] [place] [address]- 0075 Sep, [facility] [address] [id number] [place] [address]- 0098 Sep, [facility] [address] [id number] [place] [address]- 5723 Sep, [facility] [address] [id number] [place] [address]- 5638 August, [facility] [address] [id number] [place] [address]- 1482 August, [facility] [address] [id number] [place] [address]- 3842 August, [facility] [address] [id number] [place] [address]- 9306 August, [facility] [address] [id number] [place] [address]- 5868 August, [facility] [address] [id number] [place] [address]- 4000 Jul, [facility] [address] [id number] [place] [address]- 3471 Jul, [facility] [address] [id number] [place] [address]- 2676 Jul, [facility] [place] [facility] [address] [id number] [place] [address]- 4257 Jul, [facility] [address] [id number] [place] [address]- 3756 Jul, [facility] [address] [id number], [place] [address]- 7849 18 Jun, 2012 [facility] [address] [id number] [place] [address]- 6879 18 Jun, 2012 [facility] [address] [id number] [place] [address]- 8181 15 Jun, 2012 [facility] [address] [id number] [place] [address]- 9847 14 Jun, 2012 [facility] [address] [id number] [place] [address]- 9454 Jun, [facility] [address] [id number] [place] [address]- 7489 08 Jun, 2012 [facility] [address] [id number] [place] [address]- 9366 08 Jun, 2012 [facility] [address] [id number] [place] [address]- 2461 Jun, [facility] [address] [id number] [place] [address]- 9675 Jun, [facility] [address] [id number] [place] [address]- 5436 27 May, 2012 [facility] [address] [id number] [place] [address]- 2472 May, [facility] [address] [id number], [place] [address]- 2648 May, [facility] [place] [facility] [address] [id number], [place] [address]- 9088 May, [facility] [place] [facility] [address] [id number] [place] [address]- 0824 Apr, [facility] [place] [facility] [address] [id number], [place] [address]- 6582 Apr, [facility] [place] [facility] [address] [id number], [place] [address]- 4742 Apr, [facility] [place] [facility] [address] [id number] [place] [address]- 3707 Apr, [facility] [address] [id number] [place] [address]- 5402 Apr, [facility] [address] [id number] [place] [address]- 5421 Apr, [facility] [address] [id number] [place] [address]- 3656 Apr, [facility] [address] [id number] [place] [address]- 4896 Mar, [facility] [place] [id number] Mar, [facility] [address] [id number] [place] [address]- 2784 Mar, [facility] [address] [id number] [place] [address]- 5745 Mar, [facility] [address] [id number] [place] [address]- 8079 Mar, [facility] [address] [id number] [place] [address]- 5300 Mar, [facility] [address] [id number] [place] [address]- 5394 Mar, [facility] [address] [id number] [place] [address] 2546 Mar, [facility] [address] [id number] [place] [address]- 6759 Mar, [facility] [address] [id number] [place] [address]- 8950 Mar, [facility] [address] [id number] [place] [address] Mar, [facility] [address] [id number] [place] [address] Mar, [facility] [place] [facility] [address] [id number] [place] [address] Mar, [facility] [place] [facility] [address] [id number] [place] [address]- [address]106 Mar, [facility] [place] [facility] [address] [id number] [place] [address] Mar, [facility] [place] [facility] [address] [id number] [place] [address]- 115[address] Mar, [facility] [place] [facility] [address] [id number] [place] [address] Mar, [facility] [place] [facility] [address] [id number] [place] [address]992 Feb, [facility] [place] [facility] [address] [id number] [place] [address] Feb, [facility] [place] [facility] [address] [id number] [place] [address]- 2523 Feb, [facility] [place] [facility] [address] [id number] [place] [address] Feb, [facility] [place] [facility] [address] [id number] [place] [address]- 3935 Feb, [facility] [place] [facility] [address] [id number] [place] [address]- 1787 Feb, [facility] [place] [facility] [address] [id number], [place] [address]- 2568 Feb, [facility] [place] [facility] [address] [id number] [place] [address]- 8581 Feb, [facility] [place] [facility] [address] [id number] [place] [address]- 4039 Feb, [facility] [place] [facility] [address] [id number] [place] [address] Feb, [facility] [place] [facility] [address] [id number], [place] [address] Feb, [facility] [place] [facility] [address] [id number] [place] [address]- 3489 Feb, [facility] [place] [facility] [address] [id number] [address] Feb, [facility] [place] [facility] [address] [facility] [id number] [place] [address] Feb, [facility] [place] [facility] [address] [id number] [place] [address]- [address] Feb, [facility] [place] [facility] [address] [id number] [place] [address]- 6792 Feb, [facility] [place] [facility] [address] [id number] [place] [address]- 1395 Jan, [facility] [place] [facility] [address] [facility] [id number], [place] [address] Jan, [facility] [place] [facility] [address] [id number] [place] [address]- 4835 Jan, [facility] [place] [facility] [address] [id number], [place] [address] Jan, [facility] [place] [facility] [address] [facility] [id number], [place] [address]- 269[address] Jan, [facility] [place] [facility] [address] [id number], [place] [address] Jan, [facility] [place] [facility] [address] [facility] [id number], [place] [address]- [address] Jan, [facility] [place] [facility] [address] [id number], [place] [address] Jan, [facility] [place] [facility] [address] [facility] [id number], [place] [address]- 9780 Jan, [facility] [place] [facility] [address] [facility] [id number] [place] [address]- 488[address] Jan, [facility] [place] [facility] [address] [id number] [place] [address] 12 Jan, 2012 [facility] [place] [facility] [address] [id number] [place] [address]- 7083 Jan, [facility] [place] [facility] [address] [id number] [place] [address]- 6826 Jan, [facility] [place] [facility] [address] [id number] [place] [address]- 0477 Jan, [facility] [place] [facility] [address] [id number] [place] [address]- [address]60 08 Jan, 2012 [facility] [place] [facility] [address] [id number] [place] [address]- [address] 05 Jan, 2012 [facility] [place] [facility] [address] [id number] [place] [address]- [address] 04 Jan, 2012 [facility] [place] [facility] [address] [id number] [place] [address]- [address] 21 Dec, 2011 [facility] [place] [facility] [address] [id number] [place] [address]- [address]990 20 Dec, 2011 [facility] [place] [facility] [address] [id number] [place] [address]- 5330 18 Dec, 2011 [facility] [place] [facility] [address] [id number] [place] [address]- [address]366 18 Dec, 2011 [facility] [place] [facility] [address] [id number] [place] [address]- [address]46 10 Dec, 2011 [facility] [place] [facility] [address] [id number] [place] [address] 2546 10 Dec, 2011 [facility] [place] [facility] [address] [id number] [place] [address] 2546 10 Dec, 2011 [facility] [place] [facility] [address] [id number] [place] [address]- [address]46 07 Dec, 2011 [facility] [place] [facility] [address] [id number] [place] [address]- 1116 Nov, [facility] [place] [facility] [address] [id number] [place] [address]- 9708 Nov, [facility] [place] [facility] [address] [id number] [place] [address]- 9647 Nov, [facility] [place] [facility] [address] [id number] [place] [address]- 6968 Nov, [facility] [place] [facility] [address] [id number] [place] [address]- 3676 Nov, [facility] [place] [facility] [address] [id number] [place] [address]- 5869 Nov, [facility] [place] [facility] [address] [id number] [place] [address]- 6378 Oct, [facility] [place] [facility] [address] [id number] [place] [address]- 6582 Oct, [facility] [place] [facility] [address] [id number] [place] [address]- [address]783 Oct, [facility] [place] [facility] [address] [id number] [place] [address]- 1358 Oct, [facility] [place] [facility] [address] [id number] [place] [address]- 7052 Oct, [facility] [place] [facility] [address] [id number] [place] [address]- 5631 Oct, [facility] [place] [facility] [address] [id number] [place] [address]- 6889 Oct, [facility] [place] [facility] [address] [id number] [place] [address]- 1475 Sep, [facility] [place] [facility] [address] [id number] [place] [address]- 9121 Sep, [facility] [place] [facility] [address] [id number] [place] [address]- 0930 Sep, [facility] [place] [facility] [address] [id number] [place] [address]- [address] 20 Sep, 2011 [facility] [place] [facility] [address] [id number] [place] [address]- 5472 19 Sep, 2011 [facility] [place] [facility] [address] [id number] [place] [address]- 1205 15 Sep, 2011 [facility] [place] [facility] [address] [id number] [place] [address]- 1404 14 Sep, 2011 [facility] [place] [facility] [address] [address] [id number] [place] [address] 11 Sep, 2011 [facility] [place] [facility] [address] [id number] [place] [address] 05 Sep, 2011 [facility] [place] [facility] [address] [id number] [place] [address] 04 Sep, 2011 [facility] [place] [facility] [address] [id number] [place] [address] August, [facility] [place] [facility] [address] [id number] [place] [address] August, [facility] [place] [facility] [address] [id number] [place] [address] August, [facility] [place] [facility] [address] [id number] [place] [address] August, [facility] [place] [facility] [address] [id number] [place] [address] August, [facility] [place] [facility] [address] [id number] [place] [address] Jul, [facility] [place] [facility] [address] [id number] [place] [address] Jul, [facility] [place] [facility] [address] [id number] [place] [address] 74[address] Jul, [facility] [place] [facility] [address] [id number] [place] [address] 17 Jul, 2011 [facility] [place] [facility] [address] [id number] [place] [address] Jul, [facility] [place] [facility] [address] [id number] [place] [address] Jul, [facility] [place] [facility] [address] [id number] [place] [address] Jul, [facility] [place] [facility] [address] [id number] [place] [address] Jun, [facility] [place] [facility] [address] [id number] [place] [address] Jun, [facility] [place] [facility] [address] [id number] [place] [address] Jun, [facility] [place] [facility] [address] [id number] [place] [address] Jun, [facility] [place] [facility] [address] [id number] [place] [address] 98[address] Jun, [facility] [place] [facility] [address] [id number] [place] [address] 8864 May, [facility] [place] [facility] [address] [id number] [place] [address]368 May, [facility] [place] [facility] [address] [id number] [place] [address] May, [facility] [place] [facility] [address] [id number] [place] [address] 2828 May, [facility] [place] [facility] [address] [id number] [place] [address] 3637 May, [facility] [place] [facility] [address] [id number] [place] [address]65 May, [facility] [place] [facility] [address] [facility] [id number] [place] [address]39 Apr, [facility] [place] [facility] [address] [id number], [place] [address] 29 Mar, 2011 [facility] [place] [facility] [address] [id number] [place] [address] 9498 Feb, [facility] [place] [facility] [address] [id number] [place] [address] Feb, [facility] [place] [facility] [address] [facility] [id number] [place] [address] Feb, [facility] [place] [facility] [address] [id number] [place] [address] 9448 Feb, [facility] [place] [facility] [address] [id number] [place] [address], [place] [address]- [address] Jan, [facility] [place] [facility] [address] [id number] [place] [address]289 Jan, [facility] [place] [facility] [address] [facility] [id number] [place] [address], [place] [address]- [address] Jan, [facility] [place] [facility] [address] [id number] [place] [address] 24 Jan, 2011 [facility] [place] [facility] [address] [facility] [id number] [place] [address] 14 Jan, 2011 [facility] [place] [facility] [address] [facility] [id number] [place] [address]604 Dec, [facility] [place] [facility] [address] [id number], [place] [address] Oct, [facility] [place] [facility] [address] [id number], [place] [address] August, [facility] [place] [facility] [address] [id number] [place] [address] 4440 29 Mar, 2010 [facility] [place] [facility] [address] [facility] [id number] [place] [address]- 1599 27 Mar, 2010 [facility] [place] [facility] [address] [facility] [id number] [place] [address] 16 Mar, 2010 [facility] [place] [facility] [address] [id number] [place] [address]306 15 Mar, 2010 [facility] [place] [facility] [address] [id number] [place] [address]- [address] 15 Mar, 2010 [facility] [place] [facility] [address] [id number] [place] [address] 2546 08 Mar, 2010 [facility] [place] [facility] [address] [id number] [place] [address] 2546 Mar, [facility] [place] [facility] [address] [id number] [place] [address] 4526 Feb, [facility] [place] [facility] [address] [id number] [place] [address]- 8087 Feb, [facility] [place] [facility] [address] [id number] [place] [address]- 7855 Feb, [facility] [place] [facility] [address] [id number] [place] [address] 0152 Jan, [facility] [place] [facility] [address] [id number] [place] [address]- 9655 Jan, [facility] [place] [facility] [address] [id number] [place] [address]- 7431 Jan, [facility] [place] [facility] [address] [id number] [place] [address]- 4786 Nov, [facility] [place] [facility] [address] [id number] [place] [address]- 2804 14 Sep, 2009 [facility] [place] [facility] [address] [id number] [place] [address]233 August, [facility] [place] [facility] [address] [id number] [place] [address]- 7966 30 Mar, 2009 [facility] [place] [facility] [address] [id number] [place] [address]- 2546 07 Mar, 2009 [facility] [place] [facility] [address] [id number] [place] [address] 88[address] Feb, [facility] [id number], [place] [address] Feb, [facility] [id number] [place] [address] Feb, [facility] [id number] [place] [address]- 8[address] Feb, [facility] [id number] [place] [address] 4[address]19- 5666 Feb, [facility] [id number] [place] [address]- 5[address] Jan, [facility] [id number] [place] [address] 064673- 1004 Jan, [facility] [id number] [place] [address]- 3915 Jan, [facility] [id number] [place] [address]- 1337 Jan, [facility] [id number], [place] [address] Nov, [facility] [address] [id number] [address] Sep, [facility] [id number], [place] [address] August, [facility] [id number], [place] [address] 9065 Jul, [facility] [address] [id number], [place] [address] May, IMMUNIZATIONS Vaccine Route Administration Date Status TORADOL (IM) 60 MG/2ML (UP TO 15 MG) IM Intramuscular Jan 08, 2017 Administered SOCIAL HISTORY Never Assessed REASON FOR VISIT Migraine for about 1 month JStrasserRN PLAN OF CARE VITAL SIGNS Height 64 in 2017-01-08 Weight 161.4 lbs 2017-01-08 Temperature 97.5 degrees Fahrenheit 2017-01-08 Heart Rate 76 bpm 2017-01-08 Respiratory Rate 20 2017-01-08 BMI 27.70 kg/m2 2017-01-08 Blood pressure systolic 104 mmHg 2017-01-08 Blood pressure diastolic 68 mmHg 2017-01-08 MEDICATIONS Medication Instructions Dosage Frequency Start Date End Date Duration Status Ropinirole HCl 2 MG TAKE 1 TABLET ONE TIME DAILY AT BEDTIME 90 Active Ambien 5 MG Orally Once a day 1 tablet at bedtime 24h Jul, 30 days Active Myrbetriq 50 MG Orally Once a day 1 tablet 24h Active Trintellix 20 MG Orally Once a day 1 tablet 24h Dec, 30 days Active Primidone 250mg Orally Three times a day 1 tablet 8h Active Albuterol Sulfate 2.5 mg /3 mL (0.083 %) 1 Each by Inhalation route every 4 hours for cough and wheeze PRN for wheezing or cough Jun, Active Benzonatate 100 mg Orally every eight hours as needed for cough 1 capsule as needed Active Zofran ODT 4 MG Orally every 4 hrs 1 tablet on the tongue and allow to dissolve 4h Jul, 1 days Active Benefiber - Active Baclofen 20 MG Orally 3 times a day 1 tablet with food or milk 8h May, Mar, 30 day(s) Active Trospium Chloride 20 MG Orally Once a day 1 tablet at bedtime on an empty stomach 24h Active Alendronate Sodium 70 MG TAKE 1 TABLET EVERY WEEK 84 Active Cetirizine HCl 10 MG Orally Once a day 1 tablet as needed 24h Active Namenda 10 MG TAKE 1 TABLET ONE TIME DAILY 90 Active Fluticasone Propionate 50 MCG/ACT Nasally 2 times a day 2 sprays in each nostril 12h Active Baclofen 10 TAKE ONE TABLET BY MOUTH TWICE A DAY WITH FOOD OR MILK 30 Active Omeprazole 40 MG Orally Once a day 1 capsule 24h Active Abilify 5 MG Orally Once a day 1 tablet 24h 24 Oct, 2016 30 day(s) Active HydrOXYzine HCl 25 MG Orally three times a day 1 tablet as needed 8h 30 days Active Welchol 3.75 GM Orally Once a day 1 packet mixed with water with a meal 24h Active Lomotil 2.5-0.025 mg Orally Four times a day TWO TABLETS 6h 30 Active Imitrex 100 mg Orally Once a day 1 tablet as needed 24h Jan, Active Abilify 20 MG Orally Once a day 1 tablet 24h 10 Jul, 2016 30 days Active Toprol XL 25 MG Orally Once a day 1 tablet 24h Active Simvastatin 20mg Orally Once a day 1 tablet in the evening 24h Active Trazodone HCl 150 MG Orally Once a day 1 tablet at bedtime as needed 24h Dec, 30 days Active Eliquis 5 MG Orally 2 times a day 12h Active Oxygen 5 inhalation all the time Active Singulair 10 MG Orally Once a day take 1 tablet (10 mg) by oral route once daily in the evening 24h Oct, Active Xanax 0.5 MG Orally Three times a day 1 tablet 8h 20 Mar, 2016 30 days Active Betamethasone Dipropionate 0.05 % Externally twice a day 1 application to affected area 12h Active Prednisone Active Gabapentin 600 MG TAKE 1 TABLET THREE TIMES DAILY (CHANGE IN DIRECTIONS) 90 Active Symbicort 160-4.5 MCG/ACT INHALE 2 PUFFS TWICE DAILY, IN THE MORNING AND IN THE EVENING 90 Active Fluorouracil 5 % Externally Twice a day 1 application to affected area 12h Active Nitroglycerin 0.4 MG Active Ventolin HFA 108 (90 Base) MCG/ACT INHALE 2 PUFFS EVERY 4 HOURS NEEDED 16 Active Aricept 10 MG TAKE 1 TABLET ONE TIME DAILY 90 Active Botox 200 UNIT Active Topamax 25 MG Orally Twice a day 1 AM, 2 hs 12h Active Tiotropium [place] Monohydrate 18 MCG Inhalation Once a day 1 capsule 24h Active Xolair 150 mg inject 1.2 milliliters (150 mg) by subcutaneous route every 4 weeks Sep, Active RESULTS No Results PROCEDURES Procedure Date Ordered Result Body Site [facility] VISIT ESTABLISHED PATIENT Jan 08, 2017 THER/PROPH/DIAG INJ, SC/IM Jan 08, 2017 TORADOL (IM) 60 MG/2ML (UP TO 15 MG) Jan 08, 2017 INSTRUCTIONS MEDICATIONS ADMINISTERED No Known Medications [...]
[2017-09-11] MEDS: LACTATED RINGERS 1,000 ML IV PRN ×2 (08:30→10:40)
--- OUTSIDE RECORDS SUMMARY | 2017-09-11 08:30 | XMS REPORT ---
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 Active 97632082 Problem Colon polyp K63.5 Active 81648640 Problem Bilateral low back pain without sciatica M54.5 Active 306707600 Problem Screening breast examination Z12.39 Active 065195506 Problem Postmenopausal Z78.0 Active 52974457 Problem Osteopenia M85.80 Active 534286427 Problem Cigarette nicotine dependence without complication F17.210 Active 09324769 Problem Type 2 diabetes mellitus with diabetic peripheral angiopathy without gangrene E11.51 Active 862400957 Problem Vascular dementia without behavioral disturbance F01.50 Active [id number] Problem Unspecified atherosclerosis of [place] arteries of extremities, unspecified extremity I70.209 Active 611336216287913 Problem Arthritis M19.90 Active 7418277 Problem Chronic atrial fibrillation I48.2 Active 127435549 Problem Chronic obstructive pulmonary disease with acute lower respiratory infection J44.0 Active 826603453 Problem Other chronic pancreatitis K86.1 Active 836962172 Problem Stress incontinence of urine N39.3 Active 40255209 Problem Controlled type 2 diabetes mellitus without complication, without long -term current use of insulin E11.9 Active 294354521 Problem Unspecified psychosis F29 Active 49447595 Problem Xeroderma Q80.9 Active 60042783 Problem COPD (chronic obstructive pulmonary disease) J44.9 Active 56527062 Problem Dementia without behavioral disturbance, unspecified dementia type F03.90 Active 58960828 Problem Gastroparesis K31.84 Active 719208320 Problem Type 2 diabetes mellitus with diabetic neuropathy, without long-term current use of insulin E11.40 Active 45474213 Problem Osteoporosis M81.0 Active 97963156 Problem Atherosclerosis of [place] artery of both lower extremities with intermittent claudication I70.213 Active 214620332458593 Problem Hyperlipidemia E78.5 Active 63244498 Problem Diabetic polyneuropathy associated with type 2 diabetes mellitus E11.42 Active 93745739 Problem Essential tremor G25.0 Active 34546000 Problem Atherosclerotic heart disease of [place]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 I25.118 Active 0450717263459 Problem Generalized anxiety disorder F41.1 Active 101534744 Problem Gastroesophageal reflux disease, esophagitis presence not specified K21.9 Active 303882363 Problem Coronary artery disease involving [place] coronary artery of [place] 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 I25.118 Active 1083595072674 Problem Postconcussion syndrome F07.81 Active 88796073 Problem Chronic pain syndrome G89.4 Active 029590125 Problem Migraine without aura and without status migrainosus, not intractable G43.009 Active 890541757 Problem Paroxysmal atrial fibrillation I48.0 Active 369962666 Problem Migraine without aura and with status migrainosus, not intractable G43.001 Active 598095964 Problem Cervicalgia M54.2 Active 6924929162875 Problem Acute exacerbation of chronic obstructive pulmonary disease (COPD) J44.1 Active 493725062 Problem Major depressive disorder, recurrent episode, moderate F33.1 Active 917770328 Problem Crohn''s disease without complication, unspecified gastrointestinal tract location K50.90 Active 15841516 Problem Chronic fatigue R53.82 Active 09971293 Problem Bipolar affective disorder, currently depressed, moderate F31.32 Active 777184991 ALLERGIES Substance Reaction Event Type Date Status Penicillin V Potassium rash Drug Allergy Dec, Active Neosporin rash Drug Allergy Dec, Active Ibuprofen rash Drug Allergy Dec, Active Glipizide hives, nausea Drug Allergy Dec, Active ENCOUNTERS Encounter Location Date Diagnosis [facility] [id number], [place] [address] Oct, [facility] [id number], [place] [address] Sep, [facility] [id number], [place] [address] August, [facility] [address] [place] [address] 50585- 0640 August, Type 2 diabetes mellitus with diabetic neuropathy, without long-term current use of insulin E11.40 and Elevated liver enzymes R74.8 [facility] [address] [place] [address] 10854- 8917 Jul, [facility] [id number] [place] [address] 29886- 5528 Jul, Cough R05 [facility] [id number] [place] [address] 42475- 1755 Jul, [facility] [id number] [place] [address] 79296- 8257 Jul, [facility] [id number] [place] [address] 93211- 0438 Jul, Bipolar affective disorder, currently depressed, moderate F31.32 ; Vascular dementia without behavioral disturbance F01.50 and Generalized anxiety disorder F41.1 [facility] [address] [place] [address] 20708- 8535 Jul, [facility] [id number] [place] [address] 25720- 6455 Jul, Type 2 diabetes mellitus with diabetic neuropathy, without long-term current use of insulin E11.40 and Elevated liver enzymes R74.8 [facility] [address] [place] [address] 92911- 7180 Jul, [facility] [id number] [place] [address] 96717- 1012 Jul, [facility] [address] [place] [address] 09930- 1215 Jul, [facility] [address] [place] [address] 13445- 3314 Jul, Post-menopausal Z78.0 [facility] [id number] [place] [address] 60360- 0952 Jul, Stress incontinence of urine N39.3 [facility] [id number] [place] [address] 57854- 5792 Jul, [facility] [id number] [place] [address] 53647- 5380 Jul, [facility] [address] 98717- 9252 Jul, Stress incontinence of urine N39.3 and Cough R05 [facility] [id number] [place] [address] 37156- 1856 Jul, [facility] [id number] [place] [address] 56870- 5609 Jul, [facility] [id number] [place] [address] 93748- 1151 Jul, [facility] [address] 02286- 0824 Jul, Gastroesophageal reflux disease, esophagitis presence not specified K21.9 [place] [id number] [place] [address] 13206- 4176 Jun, Diabetic polyneuropathy associated with type 2 diabetes mellitus E11.42 [place] [id number] [place] [address] 98245- 9424 Jun, Diabetic polyneuropathy associated with type 2 diabetes mellitus E11.42 ; Coronary artery disease involving [place] coronary artery of [place] 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 I25.118 and Paroxysmal atrial fibrillation I48.0 [place] [id number] [place] [address] 02999- 3583 Jun, [facility] [id number] [place] [address] 14484- 9223 Jun, [facility] [id number] [place] [address] 06016- 5553 Jun, Gastroenteritis K52.9 [place] [address] [place] [address] 23471- 6011 Jun, Gastroenteritis K52.9 [place] [id number] [place] [address] 15079- 6725 Jun, [place] [id number] [place] [address] 40407- 2728 Jun, [place] [id number] [place] [address] 41949- 5207 Jun, Sprain of right ankle, unspecified ligament, initial encounter S93.401A ; Type 2 diabetes mellitus with diabetic neuropathy, without long-term current use of insulin E11.40 ; Atherosclerosis of [place] artery of both lower extremities with intermittent claudication I70.213 ; Atherosclerotic heart disease of [place]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 I25.118 ; Chronic atrial fibrillation I48.2 and Crohn''s disease without complication, unspecified gastrointestinal tract location K50.90 [facility] [address] [place] [address] 65985 -1795 17 Jun, 2017 Cough R05 and Chronic obstructive pulmonary disease with acute lower respiratory infection J44.0 [place] [id number] [place] [address] 20207- 4887 16 Jun, 2017 [place] [id number] [place] [address] 41066- 7636 15 Jun, 2017 Coughing R05 ; Unspecified atherosclerosis of [place] arteries of extremities, unspecified extremity I70.209 ; Type 2 diabetes mellitus with diabetic peripheral angiopathy without gangrene E11.51 ; Crohn''s disease without complication, unspecified gastrointestinal tract location K50.90 ; Other chronic pancreatitis K86.1 and Chronic atrial fibrillation I48.2 [facility] [address] [place] [address] 22733 -9805 Jun, [facility] [id number] [place] [address] 03895- 9572 06 Jun, 2017 Bipolar affective disorder, currently depressed, moderate F31.32 ; Vascular dementia without behavioral disturbance F01.50 and Generalized anxiety disorder F41.1 [facility] [address] [place] [address] 77928- 3083 May, Generalized anxiety disorder F41.1 [facility] [id number] [place] [address] 30595- 0384 May, [facility] [id number] [place] [address] 31987- 3157 May, [facility] [id number] [place] [address] 79513- 8500 May, Coughing R05 [facility] [id number] [place] [address] 10794- 7556 May, [facility] [id number] [place] [address] 67211- 4893 May, Bipolar affective disorder, currently depressed, moderate F31.32 ; Vascular dementia without behavioral disturbance F01.50 and Generalized anxiety disorder F41.1 [facility] [id number] [place] [address] 93037- 0639 Apr, Generalized anxiety disorder F41.1 [facility] [id number] [place] [address] 34758- 3637 Apr, [facility] [id number] [place] [address] 34861- 3700 Apr, Vascular dementia without behavioral disturbance F01.50 ; Generalized anxiety disorder F41.1 and Bipolar affective disorder, currently depressed, moderate F31.32 [facility] [address] [place] [address] 95663- 5296 Apr, Generalized anxiety disorder F41.1 [facility] [address] [place] [address] 01621 -1571 Apr, Cough R05 and Acute exacerbation of chronic obstructive pulmonary disease (COPD) J44.1 [facility] [id number] [place] [address] 75501- 7430 Apr, [facility] [id number] [place] [address] 27294 -5921 Mar, Cough R05 and Cigarette nicotine dependence without complication F17.210 [facility] [id number] [place] [address] 40741- 6027 Mar, [facility] [address] 67584- 1237 Feb, Generalized anxiety disorder F41.1 ; Major depressive disorder, recurrent episode, moderate F33.1 ; Vascular dementia without behavioral disturbance F01.50 and Unspecified psychosis F29 [facility] [address] 13452- 4961 Feb, [facility] [id number] [place] [address] 19598- 2257 Feb, [facility] [address] 63945- 3797 Feb, Generalized anxiety disorder F41.1 [facility] [id number] [place] [address] 38461- 0810 Feb, Generalized anxiety disorder F41.1 [facility] [id number] [place] [address] 42576- 0406 06 Feb, 2017 Dizziness R42 ; Chronic fatigue R53.82 ; Postconcussion syndrome F07.81 ; Fall, initial encounter W19.XXXA and Disorientation R41.0 [facility] [id number] [place] [address] 41897- 8196 03 Feb, 2017 Postconcussion syndrome F07.81 ; Injury of head, initial encounter S09.90XA ; Fall, initial encounter W19.XXXA ; Disorientation R41.0 and Acute cystitis with hematuria N30.01 [facility] [id number] [place] [address] 43101- 9725 Jan, Gastroesophageal reflux disease, esophagitis presence not specified K21.9 ; Post-menopausal Z78.0 and Migraine without aura and without status migrainosus, not intractable G43.009 [facility] [id number] [place] [address] 77137- 7943 Jan, [facility] [id number] [place] [address] 36748- 2712 Jan, Generalized anxiety disorder F41.1 ; Major depressive disorder, recurrent episode, moderate F33.1 ; Vascular dementia without behavioral disturbance F01.50 and Unspecified psychosis F29 [place] [id number] [place] [address] 65907- 3745 Jan, Pneumonia of left lower lobe due to infectious organism J18.1 [place] [id number] [place] [address] 67602- 8054 Jan, Migraine without aura and with status migrainosus, not intractable G43.001 [facility] [address] 68421 -4951 Jan, Migraine without aura and without status migrainosus, not intractable G43.009 [place] [id number] [place] [address] 55203- 4236 Dec, Hematoma T14.8 [place] [id number] [place] [address] 34130- 2554 Dec, [facility] [id number] [place] [address] 72275 -1686 Nov, Fatigue, unspecified type R53.83 [place] [id number] [place] [address] 30746- 4642 Nov, Scabies B86 and Coronary artery disease involving [place] coronary artery of [place] 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 I25.118 [facility] [id number] [place] [address] 78234- 0117 Nov, [place] [id number] [place] [address] 80757- 1603 Nov, [place] [address], [place] [address]- 5659 Oct, [facility] [id number] [place] [address] 52793- 4678 Oct, Generalized anxiety disorder F41.1 and Major depressive disorder, recurrent episode, moderate F33.1 [facility] [address], [place] [address]- 0512 Oct, Cramp of both lower extremities R25.2 [facility] [id number] [place] [address] 16173- 9930 Oct, Leg cramps R25.2 [facility] [id number] [place] [address] 43991- 3879 Oct, Chronic pain syndrome G89.4 [facility] [id number] [place] [address] 18810- 3528 Oct, [facility] [id number] [place] [address] 20344- 4482 Oct, [facility] [address] [place] [address] 98312- 5229 Oct, Routine gynecological examination Z01.419 and Screening for breast cancer Z12.31 [facility] [address], [place] [address]- 9708 Sep, Diarrhea R19.7 [facility] [address] [place] [address] 37723- 6364 Sep, Back pain M54.9 [facility] [address], [place] [address]- 7904 Sep, [facility] [id number] [place] [address] 88948- 8443 Sep, [facility] [address], [place] [address] -2798 August, Xeroderma Q80.9 [facility] [id number] [place] [address] 87253- 3317 August, Dementia without behavioral disturbance, unspecified dementia type F03.90 [place] [address] 56789- 4306 August, Chronic pain syndrome G89.4 [place] [address] 89269- 2314 August, [place] [address] 89886- 5835 August, Hyperlipidemia E78.5 ; Other fatigue R53.83 and Other specified hypotension I95.89 [facility] [address] [place] [address] 13890 -8759 August, Dysuria R30.0 ; Other fatigue R53.83 and Other specified hypotension I95.89 [place] [address] 32742- 4599 August, [place] [address] 42423- 5754 Jul, Pain in left knee M25.562 and Gastroenteritis K52.9 [place] [id number] [place] [address] 84469- 1352 Jul, [place] [id number] [place] [address] 12236- 6051 Jul, Diarrhea R19.7 [facility] [place] [address] 62589 -8948 Jul, Spider bite, accidental or unintentional, initial encounter T63.301A [place] [address] 78632- 3441 Jul, Primary osteoarthritis of right knee M17.11 and Arthritis M19.90 [place] [id number] [place] [address] 84579- 3796 Jul, Generalized anxiety disorder F41.1 and Major depressive disorder, recurrent episode, moderate F33.1 [place] [id number] [place] [address] 66094- 2088 07 Jul, 2016 Type 2 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 and Temporal headache R51 [place] [address] 94140- 6387 06 Jul, 2016 Back pain M54.9 [place] [address] 35054- 1391 Jul, [place] [address] 06224- 6902 Jul, [place] [address] 97885- 9137 30 Jun, 2016 Nausea R11.0 [facility] [place] [address] 50801 -0882 Jun, Acute suppurative otitis media of both ears without spontaneous rupture of tympanic membranes, recurrence not specified H66.003 and COPD exacerbation J44.1 [place] [address] 65869- 0263 Jun, Generalized anxiety disorder F41.1 [place] [id number] [place] [address] 38714- 6061 16 Jun, 2016 [facility] [place] [id number] [place] [address] 84153 -4758 Jun, [facility] [id number] [place] [address] 18899 -9049 Jun, Shortness of breath R06.02 and COPD exacerbation J44.1 [place] [address] 70662- 9633 10 Jun, 2016 Eczema, unspecified type L30.9 [place] [address] 69941- 2055 09 Jun, 2016 [place] [address] [place] [address]- 9512 May, [facility] [address] 54519- 4001 May, Muscle cramping R25.2 [place] [address] 00198- 8311 May, [facility] [address] 62179- 7296 Apr, Diarrhea R19.7 [place] [address] 43796- 0929 Apr, [place] [address] 36780- 8819 Apr, Chronic pain syndrome G89.4 [place] [address] 77211- 1832 Apr, Cramp of both lower extremities R25.2 and Vascular dementia without behavioral disturbance F01.50 [place] [address] 87756- 9942 Apr, Type 2 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 and Cigarette nicotine dependence without complication F17.210 [place] [id number] [place] [address] 75142- 8214 Mar, Generalized anxiety disorder F41.1 [place] [address] 14972- 2758 Feb, Generalized anxiety disorder F41.1 and Major depressive disorder, recurrent episode, moderate F33.1 [place] [address] 73610- 0170 Feb, [facility] [address] 66422 -7911 05 Feb, 2016 Dysuria R30.0 and Acute cystitis with hematuria N30.01 [place] [address] 59339- 0182 Jan, [facility] [id number] [place] [address] 59853- 0470 Jan, [facility] [id number] [place] [address] 46274- 6187 Jan, [facility] [id number] [place] [address] 33559- 9824 Jan, [facility] [id number] [place] [address] 01231 -3173 10 Jan, 2016 Wasp sting, accidental or unintentional, initial encounter T63.461A [facility] [id number] [place] [address] 94206- 0352 06 Jan, 2016 Encounter for immunization Z23 [facility] [id number] [place] [address] 56136- 6647 Jan, [facility] [id number] [place] [address] 10980- 0791 Jan, [facility] [id number] [place] [address] 82992- 7096 28 Dec, 2015 Generalized anxiety disorder F41.1 and Major depressive disorder, recurrent episode, moderate F33.1 [facility] [address] [place] [address] 18049- 0596 21 Dec, 2015 Routine gynecological examination Z01.419 ; Postmenopausal Z78.0 ; Screening breast examination Z12.39 ; Osteopenia M85.80 and Breast cancer screening Z12.39 [facility] [address] [place] [address] 57087- 3326 Dec, [facility] [id number] [place] [address] 43272- 6044 19 Dec, 2015 [facility] [id number] [place] [address] 09390- 2704 16 Dec, 2015 [facility] [id number] [place] [address] 61967- 9163 16 Dec, 2015 [facility] [address] [address]- 0629 14 Dec, 2015 [facility] [address] [place] [address]- 0003 Dec, [facility] [address], [place] [address]- 9355 Nov, [facility] [address] [address] -1285 Nov, Cough R05 ; Other viral agents as the cause of diseases classified elsewhere B97.89 and Acute upper respiratory infection, unspecified J06.9 [facility] [address] [address]- 7535 Nov, [facility] [address] [address]- 6322 Nov, [facility] [address] [address]- 4004 Nov, [facility] [address] [address]- 6270 Nov, [facility] [address] [address]- 5743 Nov, [facility] [address] [address] [address] Oct, [facility] [address], [place] [address] 29[address] Oct, [facility] [address] [id number], [place] [address] Oct, [facility] [address], [place] [address] Oct, Chronic pain syndrome G89.4 [facility] [address] [id number], [place] [address] 83[address] Sep, Generalized anxiety disorder F41.1 and Major depressive disorder, recurrent episode, moderate F33.1 [facility] [id number] [place] [address] 18973- 5530 Sep, [facility] [id number] [place] [address] 63229- 1252 Sep, [facility] [id number] [place] [address] 07981- 9517 14 Sep, 2015 Generalized anxiety disorder F41.1 [place] [id number] [place] [address] 17606- 9667 13 Sep, 2015 Cramp of both lower extremities R25.2 and Cervicalgia M54.2 [place] [id number] [place] [address] 37553- 5568 Sep, Generalized anxiety disorder F41.1 [place] [id number] [place] [address] 29825- 6338 Sep, [facility] [id number] [place] [address] 69349 -1577 August, Rash R21 ; Itching L29.9 and Allergic response, subsequent encounter T78.40XD [place] [id number] [place] [address] 62183- 8053 August, Primary insomnia F51.01 [facility] [id number] [place] [address] 45775 -5942 August, Rash R21 ; Itching L29.9 and Allergic response, initial encounter T78.40XA [place] [id number] [place] [address] 52194- 3136 August, [place] [id number] [place] [address] 02119- 9192 August, Cramp of both lower extremities R25.2 [place] [id number] [place] [address] 74659- 2728 August, Back pain M54.9 [place] [address], [place] [address] 96[address] August, [facility] [address] [facility] [id number], [place] [address] 3117 August, [facility] [address] [facility] [id number], [place] [address] August, Cramp of both lower extremities R25.2 [facility] [address], [place] [address] 8342 August, [facility] [address], [place] [address] 1269 August, Syncope R55 ; Paroxysmal atrial fibrillation I48.0 ; Dementia without behavioral disturbance, unspecified dementia type F03.90 and Chronic pain syndrome G89.4 [facility] [address], [place] [address] 6[address] August, Type 2 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 and Syncope R55 [facility] [address] [facility] [id number], [place] [address] 7024 Jul, [facility] [address], [place] [address]- 0786 Jul, [facility] [address], [place] [address]- 8233 Jul, [facility] [address], [place] [address] 0100 Jul, [facility] [address], [place] [address]- 6851 Jul, [facility] [address], [place] [address]- 4686 Jul, UTI (urinary tract infection) N39.0 [facility] [address], [place] [address] 1974 Jul, [facility] [address], [place] [address]- 5426 18 Jul, 2015 Major depressive disorder, recurrent episode, moderate F33.1 and Generalized anxiety disorder F41.1 [facility] [id number] [place] [address] 99566- 7164 14 Jul, 2015 Generalized anxiety disorder F41.1 [facility] [address], [place] [address]- 9599 14 Jul, 2015 Diarrhea R19.7 [facility] [id number] [place] [address] 33159- 1520 14 Jul, 2015 [facility] [id number] [place] [address] 00418- 4921 Jun, [facility] [id number] [place] [address] 30500- 7335 Jun, Eczema L30.9 [facility] [id number] [place] [address] 32202- 9631 Jun, [facility] [id number] [place] [address] 71820- 3804 Jun, COPD (chronic obstructive pulmonary disease) J44.9 [facility] [id number] [place] [address] 36101- 3935 Jun, [facility] [address], [place] [address]- 1453 Jun, Major depressive disorder, recurrent episode, moderate F33.1 and Generalized anxiety disorder F41.1 [facility] [address], [place] [address]- 4720 May, [facility] [id number] [place] [address] 45534- 8490 May, UTI (urinary tract infection) N39.0 [facility] [address], [place] [address]- 7419 17 May, 2015 [facility] [id number] [place] [address] 23336- 0978 May, [facility] [address], [place] [address]- 0626 May, [facility] [id number] [place] [address] 92808- 8670 May, [facility] [address], [place] [address]- 5639 Apr, Major depressive disorder, recurrent episode, moderate F33.1 and Generalized anxiety disorder F41.1 [facility] [id number] [place] [address] 86588- 2371 Apr, COPD (chronic obstructive pulmonary disease) J44.9 [facility] [id number] [place] [address] 84558- 8201 Apr, [facility] [id number] [place] [address] 63723- 2301 Apr, Atrial flutter I48.92 [facility] [address], [place] [address]- 7175 Apr, [facility] [id number] [place] [address] 67940- 9851 Apr, [facility] [address], [place] [address]- 7612 Mar, [facility] [address], [place] [address]- 4231 Mar, [facility] [address], [place] [address]- 6661 Mar, [facility] [address], [place] [address]- 0523 Mar, Hyperlipidemia E78.5 ; Type 2 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 ; Major depressive disorder, recurrent episode, moderate F33.1 and Chronic pain syndrome G89.4 [facility] [address], [place] [address]- 9763 Mar, [facility] [address] [facility] [id number], [place] [address]- 3266 Mar, [facility] [id number] [place] [address] 98987- 8546 Mar, [facility] [address], [place] [address]- 2617 Mar, [facility] [id number] [place] [address] 88656- 0487 Feb, COPD (chronic obstructive pulmonary disease) J44.9 and Back pain M54.9 [facility] [id number] [place] [address] 38935- 8330 Feb, [facility] [id number] [place] [address] 17676- 1314 Feb, [facility] [id number] [place] [address] 42471- 0926 Feb, [facility] [id number] [place] [address] 76453- 9695 Feb, [facility] [id number] [place] [address] 33666- 0250 Feb, [facility] [address], [place] [address]- 0770 Feb, [facility] [id number] [place] [address] 88873- 3793 Feb, [facility] [address], [place] [address]- 5234 Feb, [facility] [id number] [place] [address] 90017- 6311 Feb, Diabetes E11.9 ; Back pain M54.9 and COPD (chronic obstructive pulmonary disease) J44.9 [facility] [address], [place] [address]- 2145 Jan, [facility] [id number] [place] [address] 14888- 2862 Jan, Major depression, recurrent F33.9 and Generalized anxiety disorder F41.1 [facility] [id number] [place] [address] 96527- 3944 Jan, Chronic pain G89.29 [facility] [id number] [place] [address] 13119- 1974 Jan, [facility] [address] 74437- 4914 Jan, [facility] [id number] [place] [address] 60847- 6228 Jan, [facility] [id number] [place] [address] 50908- 0249 Jan, [facility] [id number] [place] [address] 72310- 2579 Jan, Nicotine dependence F17.200 [facility] [id number] [place] [address] 69677- 9912 Jan, Nicotine dependence F17.200 and Back pain M54.9 [facility] [id number] [place] [address] 67636- 2433 Jan, [facility] [id number] [place] [address] 04919- 6535 28 Dec, 2014 [facility] [id number] [place] [address] 22374- 3231 25 Dec, 2014 Anxiety, generalized 300.02 and Major depression, recurrent 296.30 [facility] [id number] [place] [address] 23436- 7257 24 Dec, 2014 [facility] [id number] [place] [address] 05132- 0148 21 Dec, 2014 [facility] [id number] [place] [address] 84990- 2251 17 Dec, 2014 [facility] [address], [place] [address]- 7957 15 Dec, 2014 [facility] [id number] [place] [address] 86771- 4642 14 Dec, 2014 [facility] [address], [place] [address]- 0447 11 Dec, 2014 [facility] [id number] [place] [address] 92320- 2003 10 Dec, 2014 [facility] [id number] [place] [address] 28413- 7743 08 Dec, 2014 Skin tear 879.8 [facility] [id number] [place] [address] 35926- 4401 08 Dec, 2014 Routine gynecological examination V72.31 ; Breast cancer screening V76.10 and Family history of breast cancer in first degree relative V16.3 [facility] [id number] [place] [address] 72004- 0722 03 Dec, 2014 [facility] [id number] [place] [address] 76458- 7795 Dec, [facility] [id number] [place] [address] 38764- 0056 Nov, [facility] [id number] [place] [address] 22510- 4506 Nov, [facility] [address] [place] [address] 09751- 0019 Nov, Poor balance 781.99 and Vascular dementia, uncomplicated 290.40 [facility] [id number] [place] [address] 43610- 1085 Nov, [facility] [id number] [place] [address] 34009- 1166 Nov, Major depression, recurrent 296.30 and Anxiety, generalized 300.02 [facility] [id number] [place] [address] 92920- 8659 Nov, [facility] [address], [place] [address]- 4886 Nov, [facility] [address], [place] [address]- 4445 Nov, [facility] [address], [place] [address]- 1894 Nov, [facility] [id number] [place] [address] 65192- 8926 Nov, Vascular dementia, uncomplicated 290.40 and Lumbago 724.2 [facility] [id number] [place] [address] 57320- 1173 Nov, [facility] [id number] [place] [address] 13015- 4202 Nov, [facility] [id number] [place] [address] 55097- 7510 Nov, [facility] [address], [place] [address]- 3976 Oct, [facility] [id number] [place] [address] 67473- 5343 Oct, [facility] [address], [place] [address]- 7657 Oct, [facility] [id number] [place] [address] 26527- 2906 Oct, COPD (chronic obstructive pulmonary disease) 496 and Hyperlipidemia 272.4 [facility] [address], [place] [address]- 1776 Oct, Major depression, recurrent 296.30 and Anxiety, generalized 300.02 [facility] [address], [place] [address]- 5245 Oct, [facility] [address], [place] [address]- 7930 Oct, [facility] [address], [place] [address]- 1878 Oct, [facility] [id number] [place] [address] 75665- 2365 Sep, Lumbago 724.2 and Anxiety state, unspecified 300.00 [facility] [id number] [place] [address] 70311- 1016 Sep, [facility] [id number] [place] [address] 96417- 0788 Sep, [facility] [id number] [place] [address] 71862- 3730 August, [facility] [id number] [place] [address] 57702- 4160 August, Major depression, recurrent 296.30 ; Anxiety, generalized 300.02 and No condition on [place] V71.09 [facility] [id number] [place] [address] 16758- 8087 August, [facility] [address], [place] [address]- 0313 August, [facility] [id number], [place] [address]- 4899 Jul, [facility] [address], [place] [address]- 1303 Jul, [facility] [address], [place] [address]- 9800 Jul, [facility] [address], [place] [address]- 6429 Jun, [facility] [id number], [place] [address]- 8907 Jun, [facility] [address], [place] [address]- 0059 Jun, [facility] [id number] [place] [address], [place] [address]- 6786 27 Jun, 2014 [facility] [place] [facility] [address] [id number] [place] [address]- 5893 26 Jun, 2014 [facility] [place] [facility] [address] [id number] [place] [address]- 2919 23 Jun, 2014 [facility] [place] [facility] [address] [id number] [place] [address]- 6246 23 Jun, 2014 [facility] [place] [facility] [address] [id number] [place] [address]- 5574 17 Jun, 2014 [facility] [place] [facility] [address] [id number] [place] [address]- 1802 Jun, [facility] [place] [facility] [address] [id number] [place] [address]- 7946 13 Jun, 2014 [facility] [place] [facility] [address] [id number] [place] [address]- 4126 10 Jun, 2014 [facility] [place] [facility] [address] [id number] [place] [address]- 0127 10 Jun, 2014 [facility] [place] [facility] [address] [id number] [place] [address]- 2443 Jun, [facility] [place] [facility] [address] [id number] [place] [address]- 8787 Jun, [facility] [place] [facility] [address] [id number] [place] [address]- 3955 Jun, 2014 [facility] [place] [facility] [address] [id number] [place] [address]- 2546 Jun, [facility] [place] [facility] [address] [id number] [place] [address]- 9067 May, 2014 [facility] [place] [facility] [address] [id number] [place] [address]- 3276 May, 2014 [facility] [place] [facility] [address] [id number] [place] [address]- 7566 May, 2014 [facility] [place] [facility] [address] [id number] [place] [address]- 0243 May, 2014 [facility] [place] [facility] [address] [id number] [place] [address]- 3046 May, 2014 [facility] [place] [facility] [address] [id number] [place] [address]- 6346 May, 2014 [facility] [place] [facility] [address] [id number] [place] [address]- 8326 May, 2014 [facility] [place] [facility] [address] [id number] [place] [address]- 6087 May, 2014 [facility] [place] [facility] [address] [id number] [place] [address]- 9350 May, 2014 [facility] [place] [facility] [address] [id number] [place] [address]- 2719 May, 2014 [facility] [place] [facility] [address] [id number] [place] [address]- 7261 May, [facility] [place] [facility] [address] [id number] [place] [address]- 0461 May, [facility] [place] [facility] [address] [id number] [place] [address]- 9264 May, [facility] [place] [facility] [address] [id number] [place] [address]- 7922 May, [facility] [place] [facility] [address] [id number] [place] [address]- 3906 Apr, [facility] [place] [facility] [address] [id number] [place] [address]- 9699 Apr, [facility] [place] [facility] [address] [id number] [place] [address]- 8750 Apr, [facility] [place] [facility] [address] [id number] [place] [address]- 2193 Apr, [facility] [place] [facility] [address] [id number] [place] [address]- 9430 Apr, [facility] [address] [id number] [place] [address]- 7053 Apr, [facility] [place] [facility] [address] [id number] [place] [address]- 4327 Apr, [facility] [address] [id number] [place] [address]- 3271 Apr, [facility] [address] [id number] [place] [address]- 4996 Apr, [facility] [address] [id number] [place] [address]- 4064 Apr, [facility] [address] [id number] [place] [address]- 5009 Apr, [facility] [address] [id number] [place] [address]- 1991 Apr, [facility] [address] [id number] [place] [address]- 4956 Mar, [facility] [address] [id number] [place] [address]- 9800 Mar, [facility] [address] [id number] [place] [address]- 2964 Mar, [facility] [place] [facility] [address] [id number] [place] [address]- 0462 Mar, [facility] [place] [facility] [address] [id number] [place] [address]- 1484 Mar, [facility] [place] [facility] [address] [id number] [place] [address]- 4040 Mar, [facility] [place] [facility] [address] [id number] [place] [address] Mar, [facility] [place] [facility] [address] [id number] [place] [address] Mar, [facility] [place] [facility] [address] [id number] [place] [address] Mar, [facility] [place] [facility] [address] [id number] [place] [address] Mar, [facility] [place] [facility] [address] [id number] [place] [address] Mar, [facility] [place] [facility] [address] [id number] [place] [address] Mar, [facility] [place] [facility] [address] [id number] [place] [address] Mar, [facility] [place] [facility] [address] [id number] [place] [address] Mar, [facility] [place] [facility] [address] [id number] [place] [address] Mar, [facility] [place] [facility] [address] [id number] [place] [address] Mar, [facility] [place] [facility] [address] [id number] [place] [address] Mar, [facility] [place] [facility] [address] [id number] [place] [address] Mar, [facility] [place] [facility] [address] [id number] [place] [address] Mar, [facility] [place] [facility] [address] [id number], [place] [address] Mar, [facility] [place] [facility] [address] [id number] [place] [address] Feb, [facility] [place] [facility] [address] [id number] [place] [address] Feb, [facility] [place] [facility] [address] [id number] [place] [address] Feb, [facility] [place] [facility] [address] [id number], [place] [address] Feb, [facility] [place] [facility] [address] [id number] [place] [address] Feb, [facility] [place] [facility] [address] [id number], [place] [address] Feb, [facility] [place] [facility] [address] [facility] [id number] [place] [address] Feb, [facility] [place] [facility] [address] [id number] [place] [address] Feb, [facility] [place] [facility] [address] [id number] [place] [address] Feb, [facility] [place] [facility] [address] [facility] [id number] [place] [address]- [address] Feb, [facility] [place] [facility] [address] [facility] [id number], [place] [address] Feb, [facility] [place] [facility] [address] [id number], [place] [address] Feb, [facility] [place] [facility] [address] [facility] [id number] [place] [address] Feb, [facility] [place] [facility] [address] [facility] [id number], [place] [address] Feb, [facility] [place] [facility] [address] [id number], [place] [address] Feb, [facility] [place] [facility] [address] [id number], [place] [address] Feb, [facility] [place] [facility] [address] [id number], [place] [address] Feb, [facility] [place] [facility] [address] [facility] [id number], [place] [address] Jan, [facility] [place] [facility] [address] [facility] [id number], [place] [address] Jan, [facility] [place] [facility] [address] [id number] [place] [address] Jan, [facility] [place] [facility] [address] [id number] [place] [address] Jan, [facility] [place] [facility] [address] [id number] [place] [address]- [address] Jan, [facility] [place] [facility] [address] [id number] [place] [address] Jan, [facility] [place] [facility] [address] [id number] [place] [address]- 1406 Jan, [facility] [place] [facility] [address] [id number] [place] [address]- [address] Jan, [facility] [place] [facility] [address] [id number] [place] [address] Jan, [facility] [place] [facility] [address] [id number] [place] [address] Jan, [facility] [place] [facility] [address] [id number] [place] [address]- [address] Jan, [facility] [place] [facility] [address] [id number] [place] [address]- [address] Dec, [facility] [place] [facility] [address] [id number] [place] [address] Dec, [facility] [place] [facility] [address] [id number] [place] [address] Nov, [facility] [place] [facility] [address] [id number] [place] [address] Nov, [facility] [place] [facility] [address] [id number] [place] [address] 7929 Nov, [facility] [place] [facility] [address] [id number] [place] [address] 4959 Nov, [facility] [place] [facility] [address] [id number] [place] [address] 2907 Nov, [facility] [place] [facility] [address] [id number] [place] [address] 3430 Nov, [facility] [place] [facility] [address] [id number] [place] [address] 4920 Nov, [facility] [place] [facility] [address] [id number] [place] [address] 7182 Oct, [facility] [place] [facility] [address] [id number] [place] [address] 8333 Oct, [facility] [place] [facility] [address] [id number] [place] [address] 7241 Oct, [facility] [place] [facility] [address] [id number] [place] [address] 5398 Oct, [facility] [place] [facility] [address] [id number] [place] [address] 1845 Sep, [facility] [place] [facility] [address] [id number] [place] [address] 6004 Sep, [facility] [place] [facility] [address] [id number] [place] [address]- 2373 Sep, [facility] [place] [facility] [address] [id number] [place] [address]- 0613 Sep, [facility] [place] [facility] [address] [id number] [place] [address]- 9288 Sep, [facility] [place] [facility] [address] [id number] [place] [address]- 2452 Sep, [facility] [place] [facility] [address] [id number] [place] [address]- 1579 Sep, [facility] [place] [facility] [address] [id number] [place] [address]- 4134 Sep, [facility] [place] [facility] [address] [id number] [place] [address]- 0901 Sep, [facility] [place] [facility] [address] [id number] [place] [address]- 7350 Sep, [facility] [place] [facility] [address] [id number] [place] [address]- 3009 Sep, [facility] [place] [facility] [address] [id number] [place] [address]- 7257 Sep, [facility] [place] [facility] [address] [id number] [place] [address]- 0319 Sep, [facility] [place] [facility] [address] [id number] [place] [address]- 5590 Sep, [facility] [place] [facility] [address] [id number] [place] [address]- 8028 August, [facility] [place] [facility] [address] [id number] [place] [address]- 1523 August, [facility] [place] [facility] [address] [id number] [place] [address]- 5795 August, [facility] [place] [facility] [address] [id number] [place] [address]- 8730 August, [facility] [place] [facility] [address] [id number] [place] [address]- 6799 August, [facility] [place] [facility] [address] [id number] [place] [address]- 8590 August, [facility] [place] [facility] [address] [id number] [place] [address]- 8083 August, [facility] [place] [facility] [address] [id number] [place] [address]- 2685 August, [facility] [place] [facility] [address] [id number] [place] [address]- 2206 August, [facility] [place] [facility] [address] [id number] [place] [address]- 8138 August, [facility] [place] [facility] [address] [id number] [place] [address]- 9775 August, [facility] [place] [facility] [address] [id number] [place] [address]- 8973 August, [facility] [place] [facility] [address] [id number] [place] [address]- 7270 August, [facility] [place] [facility] [address] [id number] [place] [address]- 8694 August, [facility] [place] [facility] [address] [id number] [place] [address] 9342 August, [facility] [address] [id number] [place] [address] 3648 August, [facility] [place] [facility] [address] [id number] [place] [address]- 2459 August, [facility] [address] [id number] [place] [address]- 9826 August, [facility] [address] [id number] [place] [address]- 2643 August, [facility] [address] [id number] [place] [address]- 2544 Jul, [facility] [place] [facility] [address] [id number] [place] [address]- 7964 Jul, [facility] [place] [facility] [address] [id number] [place] [address]- 3574 Jul, [facility] [place] [facility] [address] [id number] [place] [address]- 6832 Jul, [facility] [place] [facility] [address] [id number] [place] [address]- 7666 Jun, [facility] [place] [facility] [address] [id number] [place] [address]- 8081 Jun, [facility] [place] [facility] [address] [id number] [place] [address]- 5716 Jun, [facility] [place] [facility] [address] [id number] [place] [address]- 2936 24 Jun, 2013 [facility] [place] [facility] [address] [id number] [place] [address]- 0852 17 Jun, 2013 [facility] [place] [facility] [address] [id number] [place] [address]- 7286 17 Jun, 2013 [facility] [place] [facility] [address] [facility] [id number] [place] [address]- 1714 Jun, [facility] [place] [facility] [address] [id number] [place] [address]- 3538 14 Jun, 2013 [facility] [place] [facility] [address] [id number] [place] [address]- 5009 Jun, [facility] [place] [facility] [address] [facility] [id number] [place] [address]- 2584 Jun, [facility] [place] [facility] [address] [facility] [id number] [place] [address]- 5730 May, [facility] [place] [facility] [address] [facility] [id number] [place] [address]- 2439 May, [facility] [place] [facility] [address] [facility] [id number] [place] [address]- 2130 May, [facility] [place] [facility] [address] [facility] [id number] [place] [address]- 6096 May, [facility] [place] [facility] [address] [facility] [id number] [place] [address]- 2530 May, [facility] [place] [facility] [address] [facility] [id number] [place] [address]- 9109 May, [facility] [place] [facility] [address] [facility] [id number] [place] [address]- 1109 May, [facility] [place] [facility] [address] [facility] [id number] [place] [address]- 1658 May, [facility] [place] [facility] [address] [facility] [id number], [place] [address] 4532 May, [facility] [place] [facility] [address] [id number] [place] [address]- 8472 May, [facility] [place] [facility] [address] [id number] [place] [address]- 6786 May, [facility] [place] [facility] [address] [id number] [place] [address]- 3116 May, [facility] [place] [facility] [address] [id number] [place] [address]- 4866 May, [facility] [place] [facility] [address] [id number] [place] [address]- 0110 May, [facility] [place] [facility] [address] [id number] [place] [address]- 5037 May, [facility] [place] [facility] [address] [id number] [place] [address]- 9299 May, [facility] [place] [facility] [address] [id number] [place] [address]- 3632 May, [facility] [place] [facility] [address] [id number] [place] [address]- 1655 Apr, [facility] [place] [facility] [address] [id number] [place] [address]- 4979 Apr, [facility] [place] [facility] [address] [id number] [place] [address]- 0931 Apr, [facility] [place] [facility] [address] [id number], [place] [address]- 5693 Apr, [facility] [place] [facility] [address] [id number] [place] [address]- 4295 Apr, [facility] [place] [facility] [address] [id number] [place] [address]- 1114 Apr, [facility] [place] [facility] [address] [id number] [place] [address]- 5813 Apr, [facility] [place] [facility] [address] [id number] [place] [address]- 2066 Mar, [facility] [address] [id number] [place] [address]- 8456 Mar, [facility] [place] [facility] [address] [id number] [place] [address]- 7606 Mar, [facility] [address] [id number] [place] [address]- 0786 Mar, [facility] [place] [facility] [address] [id number] [place] [address]- 3387 Mar, [facility] [address] [id number] [place] [address]- 1024 Mar, [facility] [address] [id number] [place] [address]- 0126 Mar, [facility] [address] [id number] [place] [address] Mar, [facility] [address] [id number] [place] [address]- 5655 Mar, [facility] [address] [id number] [place] [address]- 4338 Mar, [facility] [address] [facility] [id number] [place] [address]- 0582 Mar, [facility] [address] [id number] [place] [address]- 2101 Feb, [facility] [place] [facility] [address] [id number] [place] [address]- 4894 Feb, [facility] [place] [facility] [address] [id number] [place] [address]- 3925 Feb, [facility] [place] [facility] [address] [id number] [place] [address]- 5863 Feb, [facility] [place] [facility] [address] [id number] [place] [address]- 6651 Feb, [facility] [place] [facility] [address] [id number] [place] [address]- 6280 19 Feb, 2013 [facility] [place] [facility] [address] [id number] [place] [address]- 5454 15 Feb, 2013 [facility] [place] [facility] [address] [id number] [place] [address]- 0311 14 Feb, 2013 [facility] [place] [facility] [address] [id number] [place] [address]- 3691 14 Feb, 2013 [facility] [place] [facility] [address] [id number] [place] [address]- 7954 Feb, [facility] [place] [facility] [address] [id number] [place] [address]- 3832 Feb, [facility] [place] [facility] [address] [id number] [place] [address]- 5320 Feb, [facility] [place] [facility] [address] [id number] [place] [address]- 3801 Feb, [facility] [place] [facility] [address] [id number] [place] [address]- 7530 Feb, [facility] [place] [facility] [address] [id number] [place] [address]- 7895 Feb, [facility] [place] [facility] [address] [id number] [place] [address]- 0741 Feb, [facility] [place] [facility] [address] [id number], [place] [address]- 6954 Jan, [facility] [place] [facility] [address] [id number] [place] [address]- 8469 Jan, [facility] [place] [facility] [address] [id number] [place] [address]- 4417 Jan, [facility] [place] [facility] [address] [id number], [place] [address]- 1227 Jan, [facility] [place] [facility] [address] [id number], [place] [address]- 4671 Jan, [facility] [place] [facility] [address] [id number] [place] [address]- 4499 Jan, [facility] [place] [facility] [address] [id number] [place] [address]- 2025 Jan, [facility] [place] [facility] [address] [id number] [place] [address]- 6223 Jan, [facility] [place] [facility] [address] [id number] [place] [address]- 6980 10 Jan, 2013 [facility] [place] [facility] [address] [id number] [place] [address]- 1775 27 Dec, 2012 [facility] [place] [facility] [address] [id number] [place] [address]- 6430 20 Dec, 2012 [facility] [place] [facility] [address] [id number] [place] [address]- 6553 19 Dec, 2012 [facility] [place] [facility] [address] [id number] [place] [address]- 8523 10 Dec, 2012 [facility] [place] [facility] [address] [id number] [place] [address]- 0113 04 Dec, 2012 [facility] [place] [facility] [address] [id number] [place] [address]- 7486 Dec, [facility] [place] [facility] [address] [id number] [place] [address]- 6219 Nov, [facility] [place] [facility] [address] [id number] [place] [address]- 1017 Nov, [facility] [place] [facility] [address] [id number] [place] [address]- 3687 Nov, [facility] [place] [facility] [address] [id number] [place] [address]- 9180 Nov, [facility] [place] [facility] [address] [id number] [place] [address]- 9178 Nov, [facility] [place] [facility] [address] [id number] [place] [address]- 2292 Nov, [facility] [address] [id number] [place] [address]- 9813 Nov, [facility] [place] [facility] [address] [id number] [place] [address]- 0514 Nov, [facility] [address] [id number] [place] [address]- 4053 Nov, [facility] [place] [facility] [address] [id number] [place] [address]- 2365 Nov, [facility] [address] [id number] [place] [address]- 8267 Oct, [facility] [address] [id number] [place] [address]- 8301 Oct, [facility] [address] [id number] [place] [address]- 6940 Oct, [facility] [address] [id number] [place] [address]- 3139 Oct, [facility] [place] [facility] [address] [id number] [place] [address]- 0431 Oct, [facility] [address] [id number] [place] [address]- 2930 Oct, [facility] [place] [facility] [address] [id number] [place] [address]- 6208 Oct, [facility] [place] [facility] [address] [id number] [place] [address]- 0799 Oct, [facility] [place] [facility] [address] [id number] [place] [address]- 2085 Sep, [facility] [place] [facility] [address] [id number] [place] [address]- 2757 Sep, [facility] [place] [facility] [address] [id number] [place] [address]- 7193 Sep, [facility] [address] [id number] [place] [address]- 0457 Sep, [facility] [place] [facility] [address] [id number] [place] [address]- 2957 Sep, [facility] [place] [facility] [address] [id number] [place] [address]- 6721 Sep, [facility] [place] [facility] [address] [id number] [place] [address]- 6315 Sep, [facility] [address] [id number] [place] [address]- 4535 Sep, [facility] [place] [facility] [address] [id number] [place] [address]- 4836 August, [facility] [place] [facility] [address] [id number] [place] [address]- 4313 August, [facility] [place] [facility] [address] [id number] [place] [address]- 1734 August, [facility] [place] [facility] [address] [id number] [place] [address]- 4485 August, [facility] [place] [facility] [address] [id number] [place] [address]- 7224 August, [facility] [place] [facility] [address] [id number] [place] [address]- 6608 Jul, [facility] [place] [facility] [address] [id number] [place] [address]- 5537 Jul, [facility] [place] [facility] [address] [id number] [place] [address]- 1452 Jul, [facility] [place] [facility] [address] [id number] [place] [address]- 7389 Jul, [facility] [place] [facility] [address] [id number] [place] [address]- 0613 Jul, [facility] [place] [facility] [address] [id number] [place] [address]- 4692 18 Jun, 2012 [facility] [address] [id number] [place] [address]- 1081 18 Jun, 2012 [facility] [address] [id number] [place] [address]- 5461 15 Jun, 2012 [facility] [address] [id number] [place] [address]- 0718 14 Jun, 2012 [facility] [address] [id number] [place] [address]- 9321 12 Jun, 2012 [facility] [address] [id number] [place] [address]- 0038 08 Jun, 2012 [facility] [address] [id number] [place] [address]- 8221 08 Jun, 2012 [facility] [address] [id number] [place] [address]- 3492 02 Jun, 2012 [facility] [address] [id number] [place] [address]- 9163 Jun, [facility] [address] [id number] [place] [address]- 8936 27 May, 2012 [facility] [address] [id number] [place] [address]- 0904 May, [facility] [address] [id number] [place] [address]- 5923 May, [facility] [address] [id number] [place] [address]- 0955 12 May, 2012 [facility] [place] [facility] [address] [id number] [place] [address]- 4981 Apr, [facility] [place] [facility] [address] [id number] [place] [address]- 0436 Apr, [facility] [place] [facility] [address] [id number], [place] [address]- 4142 Apr, [facility] [address] [id number] [place] [address]- 0566 Apr, [facility] [address] [id number] [place] [address]- 0545 Apr, [facility] [address] [id number] [place] [address]- 3464 Apr, [facility] [address] [id number] [place] [address]- 4726 Apr, [facility] [address] [id number] [place] [address]- 3747 Mar, [facility] [place] [id number] Mar, [facility] [address] [id number] [place] [address]- 3355 Mar, [facility] [address] [id number] [place] [address]- 2638 Mar, [facility] [address] [id number] [place] [address]- 4288 Mar, [facility] [address] [id number] [place] [address]- 2359 Mar, [facility] [address] [id number] [place] [address]- 9001 Mar, [facility] [address] [id number] [place] [address] Mar, [facility] [address] [id number] [place] [address] Mar, [facility] [address] [id number] [place] [address] Mar, [facility] [address] [id number] [place] [address] Mar, [facility] [address] [id number] [place] [address] Mar, [facility] [place] [facility] [address] [id number] [place] [address] Mar, [facility] [place] [facility] [address] [id number] [place] [address] Mar, [facility] [place] [facility] [address] [id number] [place] [address] Mar, [facility] [place] [facility] [address] [id number] [place] [address] Mar, [facility] [place] [facility] [address] [id number] [place] [address] Mar, [facility] [place] [facility] [address] [id number] [place] [address] Feb, [facility] [place] [facility] [address] [id number] [place] [address] Feb, [facility] [place] [facility] [address] [id number] [place] [address] Feb, [facility] [place] [facility] [address] [id number] [place] [address] Feb, [facility] [place] [facility] [address] [id number] [place] [address] Feb, [facility] [place] [facility] [address] [id number], [place] [address] Feb, [facility] [place] [facility] [address] [id number], [place] [address] Feb, [facility] [place] [facility] [address] [id number] [place] [address] Feb, [facility] [place] [facility] [address] [id number] [place] [address] 6[address] Feb, [facility] [place] [facility] [address] [id number] [place] [address] Feb, [facility] [place] [facility] [address] [id number] [place] [address] 13 Feb, 2012 [facility] [place] [facility] [address] [id number] [place] [address] 13 Feb, 2012 [facility] [place] [facility] [address] [id number] [place] [address] Feb, [facility] [place] [facility] [address] [facility] [id number] [place] [address] Feb, [facility] [place] [facility] [address] [id number] [place] [address] Feb, [facility] [place] [facility] [address] [id number] [place] [address] Feb, [facility] [place] [facility] [address] [id number] [place] [address] Jan, [facility] [place] [facility] [address] [facility] [id number] [place] [address] Jan, [facility] [place] [facility] [address] [id number] [place] [address] Jan, [facility] [place] [facility] [address] [id number] [place] [address]- [address]83 Jan, [facility] [place] [facility] [address] [facility] [id number] [place] [address] 66[address] Jan, [facility] [place] [facility] [address] [facility] [id number] [place] [address]- [address] Jan, [facility] [place] [facility] [address] [facility] [id number], [place] [address] Jan, [facility] [place] [facility] [address] [id number] [place] [address]- 2026 Jan, [facility] [place] [facility] [address] [facility] [id number] [place] [address]- 78[address] Jan, [facility] [place] [facility] [address] [facility] [id number][place] [address] Jan, [facility] [place] [facility] [address] [id number] [place] [address]- [address] 12 Jan, 2012 [facility] [place] [facility] [address] [id number] [place] [address]- [address]398 Jan, [facility] [place] [facility] [address] [id number] [place] [address]- [address] Jan, [facility] [place] [facility] [address] [id number] [place] [address]- [address] Jan, [facility] [place] [facility] [address] [id number] [place] [address]- [address] 08 Jan, 2012 [facility] [place] [facility] [address] [id number] [place] [address]- [address]396 05 Jan, 2012 [facility] [place] [facility] [address] [id number] [place] [address]- 6[address] 04 Jan, 2012 [facility] [place] [facility] [address] [id number] [place] [address]- [address] 21 Dec, 2011 [facility] [place] [facility] [address] [id number] [place] [address]- [address] 20 Sep, 2011 [facility] [place] [facility] [address] [id number] [place] [address]- 2616 18 Sep, 2011 [facility] [place] [facility] [address] [id number] [place] [address]- 8099 18 Sep, 2011 [facility] [place] [facility] [address] [id number] [place] [address]- 2549 10 Sep, 2011 [facility] [place] [facility] [address] [id number] [place] [address] 2546 10 Sep, 2011 [facility] [place] [facility] [address] [id number] [place] [address] 2546 10 Sep, 2011 [facility] [place] [facility] [address] [id number] [place] [address]- [address]41 07 Sep, 2011 [facility] [place] [facility] [address] [id number] [place] [address]- 48[address] Nov, [facility] [place] [facility] [address] [id number] [place] [address]- [address] Nov, [facility] [place] [facility] [address] [id number] [place] [address]- [address]286 Nov, [facility] [place] [facility] [address] [id number] [place] [address]- [address]606 Nov, [facility] [place] [facility] [address] [id number] [place] [address]- 3501 Nov, [facility] [place] [facility] [address] [id number] [place] [address]- 0722 Nov, [facility] [place] [facility] [address] [id number] [place] [address]- 3519 Oct, [facility] [place] [facility] [address] [id number] [place] [address]- 0705 Oct, [facility] [place] [facility] [address] [id number] [place] [address]- 4252 Oct, [facility] [place] [facility] [address] [id number] [place] [address]- [address] Oct, [facility] [place] [facility] [address] [id number] [place] [address]- 4702 Oct, [facility] [place] [facility] [address] [id number] [place] [address]- 2035 Oct, [facility] [place] [facility] [address] [id number] [place] [address]- 2869 Oct, [facility] [place] [facility] [address] [id number] [place] [address]- 24[address] Sep, [facility] [place] [facility] [address] [id number] [place] [address]- 5915 Sep, [facility] [place] [facility] [address] [id number] [place] [address]- [address] Sep, [facility] [place] [facility] [address] [id number] [place] [address]- [address] 20 Sep, 2011 [facility] [address] [address] [id number] [place] [address] 19 Sep, 2011 [facility] [address] [id number] [place] [address] 15 Sep, 2011 [facility] [address] [id number] [place] [address] 14 Sep, 2011 [facility] [address] [id number] [place] [address] Sep, [facility] [address] [id number] [place] [address] 05 Sep, 2011 [facility] [address] [id number] [place] [address] 04 Sep, 2011 [facility] [address] [id number] [place] [address] August, [facility] [address] [id number] [place] [address] August, [facility] [address] [id number] [place] [address] August, [facility] [address] [id number] [place] [address] August, [facility] [address] [id number] [place] [address] August, [facility] [address] [id number] [place] [address] Jul, [facility] [place] [facility] [address] [id number] [place] [address] Jul, [facility] [place] [facility] [address] [id number] [place] [address] Jul, [facility] [address] [id number] [place] [address] 17 Jul, 2011 [facility] [place] [facility] [address] [id number] [place] [address] Jul, [facility] [place] [facility] [address] [id number] [place] [address] Jul, [facility] [place] [facility] [address] [id number] [place] [address] Jul, [facility] [place] [facility] [address] [id number] [place] [address] Jun, [facility] [place] [facility] [address] [id number] [place] [address] Jun, [facility] [place] [facility] [address] [id number] [place] [address] Jun, [facility] [place] [facility] [address] [facility] [id number] [place] [address] Jun, [facility] [place] [facility] [address] [id number] [place] [address] Jun, [facility] [place] [facility] [address] [id number] [place] [address] May, [facility] [place] [facility] [address] [id number] [place] [address] May, [facility] [place] [facility] [address] [id number] [place] [address] May, [facility] [place] [facility] [address] [id number] [place] [address] May, [facility] [place] [facility] [address] [id number] [place] [address] May, [facility] [place] [facility] [address] [id number] [place] [address]697 May, [facility] [place] [facility] [address] [facility] [id number] [place] [address] Apr, [facility] [place] [facility] [address] [id number] [place] [address]4 29 Mar, 2011 [facility] [place] [facility] [address] [id number] [place] [address] Feb, [facility] [place] [facility] [address] [id number] [place] [address] Feb, [facility] [place] [facility] [address] [id number] [place] [address] Feb, [facility] [place] [facility] [address] [id number] [place] [address] Feb, [facility] [place] [facility] [address] [id number] [place] [address], [place] 31 Jan, 2011 [facility] [place] [facility] [address] [id number] [place] [address] Jan, [facility] [place] [facility] [address] [id number] [place] [address] Jan, [facility] [place] [facility] [address] [id number] [place] [address] 24 Jan, 2011 [facility] [place] [facility] [address] [id number] [place] [address] 14 Jan, 2011 [facility] [place] [facility] [address] [facility] [id number] [place] [address] Dec, [facility] [place] [facility] [address] [id number] [place] [address] Oct, [facility] [place] [facility] [address] [id number] [place] [address] August, [facility] [place] [facility] [address] [id number] [place] [address]94 29 Mar, 2010 [facility] [place] [facility] [address] [id number] [place] [address] 27 Mar, 2010 [facility] [place] [facility] [address] [id number] [place] [address] 16 Mar, 2010 [facility] [place] [facility] [address] [id number] [place] [address] 2312 15 Mar, 2010 [facility] [place] [facility] [address] [id number] [place] [address]- 1686 15 Mar, 2010 [facility] [place] [facility] [address] [id number] [place] [address]858 08 Mar, 2010 [facility] [place] [facility] [address] [id number] [place] [address] Mar, [facility] [address] [id number] [place] [address] 7812 Feb, [facility] [place] [facility] [address] [id number] [place] [address] 3755 Feb, [facility] [address] [id number] [place] [address] 3897 Feb, [facility] [address] [id number] [place] [address] 3148 Jan, [facility] [place] [facility] [address] [id number] [place] [address] 2724 Jan, [facility] [address] [id number] [place] [address] 365[address] Jan, [facility] [place] [facility] [address] [id number] [place] [address] 3724 Nov, [facility] [place] [facility] [address] [id number], [place] [address] Sep, [facility] [place] [facility] [address] [id number] [place] [address] 9588 August, [facility] [place] [facility] [address] [id number] [place] [address] 2028 Mar, [facility] [place] [facility] [address] [id number] [place] [address] 1723 07 Mar, 2009 [facility] [place] [facility] [address] [id number], [place] [address] Feb, [facility] [id number], [place] [address] Feb, [facility] [id number], [place] [address] Feb, [facility] [id number], [place] [address] Feb, [facility] [address] [facility] [id number] [place] [address]- [address] Feb, [facility] [id number] [place] [address]- 1319 Jan, [facility] [id number] [place] [address]- 5181 Jan, [facility] [id number] [place] [address]- 9016 Jan, [facility] [id number] [place] [address]- 4427 Jan, [facility] [id number] [place] [address]- 4835 Nov, [facility] [id number], [place] [address] Sep, [facility] [id number], [place] [address] August, [facility] [id number], [place] [address] Jul, [facility] [id number], [place] [address] May, IMMUNIZATIONS No Known Immunizations SOCIAL HISTORY Never Assessed REASON FOR VISIT Fatigue F/U, trouble sleeping--Rosalba Cox MA PLAN OF CARE Activity Details Follow Up 10 days Reason: VITAL SIGNS Height 64 in 2016-12-24 Weight 169.2 lbs 2016-12-24 Temperature 98.5 degrees Fahrenheit 2016-12-24 Heart Rate 88 bpm 2016-12-24 Respiratory Rate 20 2016-12-24 BMI 29.04 kg/m2 2016-12-24 Blood pressure systolic 122 mmHg 2016-12-24 Blood pressure diastolic 68 mmHg 2016-12-24 MEDICATIONS Medication Instructions Dosage Frequency Start Date End Date Duration Status Aricept 10 MG TAKE 1 TABLET ONE TIME DAILY 90 Active HydrOXYzine HCl 25 MG Orally three times a day 1 tablet as needed 8h 30 days Active Ventolin HFA 108 (90 Base) MCG/ACT INHALE 2 PUFFS EVERY 4 HOURS NEEDED 16 Active Alendronate Sodium 70 MG TAKE 1 TABLET EVERY WEEK 84 Active Albuterol Sulfate 2.5 mg /3 mL (0.083 %) 1 Each by Inhalation route every 4 hours for cough and wheeze PRN for wheezing or cough Jun, Active Nitroglycerin 0.4 MG Active Abilify 20 MG Orally Once a day 1 tablet 24h Jul, 30 days Active Morphine Sulfate ER 30 MG Orally every 12 hrs 1 tablet 12h Dec, Dec, 10 days Active Welchol 3.75 GM Orally Once a day 1 packet mixed with water with a meal 24h Active Azithromycin 250 MG Orally Once a day 2 tablets on the first day, then 1 tablet daily for 4 days 24h Active Zofran ODT 4 MG Orally every 4 hrs 1 tablet on the tongue and allow to dissolve 4h Jul, 1 days Active Cetirizine HCl 10 MG Orally Once a day 1 tablet as needed 24h Active Ropinirole HCl 2 MG TAKE 1 TABLET ONE TIME DAILY AT BEDTIME 90 Active Namenda 10 MG TAKE 1 TABLET ONE TIME DAILY 90 Active Omeprazole 40 MG Orally Once a day 1 capsule 24h Active Myrbetriq 50 MG Orally Once a day 1 tablet 24h Active Oxygen 5 inhalation all the time Active Xanax 0.5 MG Orally Three times a day 1 tablet 8h Mar, 30 days Active Singulair 10 MG Orally Once a day take 1 tablet (10 mg) by oral route once daily in the evening 24h Oct, Active Gabapentin 600 MG TAKE 1 TABLET THREE TIMES DAILY (CHANGE IN DIRECTIONS) 90 Active Benefiber - Active Betamethasone Dipropionate 0.05 % Externally twice a day 1 application to affected area 12h Active Abilify 5 MG Orally Once a day 1 tablet 24h Oct, 30 day(s) Active Fluticasone Propionate 50 MCG/ACT Nasally 2 times a day 2 sprays in each nostril 12h Active Eliquis 5 MG Orally 2 times a day 12h Active Ambien 5 MG Orally Once a day 1 tablet at bedtime 24h Jul, 30 days Active Symbicort 160-4.5 MCG/ACT INHALE 2 PUFFS TWICE DAILY, IN THE MORNING AND IN THE EVENING 90 Active Tiotropium [place] Monohydrate 18 MCG Inhalation Once a day 1 capsule 24h Active Lomotil 2.5-0.025 mg Orally Four times a day TWO TABLETS 6h 30 Active Prednisone Active Benzonatate 100 mg Orally every eight hours as needed for cough 1 capsule as needed Active Trazodone HCl 150 MG Orally Once a day 1 tablet at bedtime as needed 24h Dec, 30 days Active Baclofen 10 mg Orally 2 times a day 1 tablet with food or milk 12h 24 May, 2016 30 day(s) Active Simvastatin 20mg Orally Once a day 1 tablet in the evening 24h Active Fluorouracil 5 % Externally Twice a day 1 application to affected area 12h Active Primidone 250mg Orally Three times a day 1 tablet 8h Active Trintellix 20 MG Orally Once a day 1 tablet 24h Dec, 30 days Active Trospium Chloride 20 MG Orally Once a day 1 tablet at bedtime on an empty stomach 24h Active Baclofen 10 TAKE ONE TABLET BY MOUTH TWICE A DAY WITH FOOD OR MILK 30 Active Toprol XL 25 MG Orally Once a day 1 tablet 24h Active Xolair 150 mg inject 1.2 milliliters (150 mg) by subcutaneous route every 4 weeks Sep, Active Topamax 25 MG Orally Twice a day 1 AM, 2 hs 12h Active RESULTS No Results PROCEDURES Procedure Date Ordered Result Body Site [facility] VISIT ESTABLISHED PATIENT Dec 24, 2016 INSTRUCTIONS MEDICATIONS ADMINISTERED No Known Medications [...]
--- OUTSIDE RECORDS SUMMARY | 2017-09-11 08:36 | XMS REPORT ---
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 Botox 200 unit injection recon soln 06/13/2017 09/11/2017 INject 155 units into 31 sites as per migraine prophylaxis protocol. Injection done by experienced provider. oxycodone-acetaminophen 10-325 mg oral tablet take 1 tablet by oral route every 6 hours as needed Tessalon Perles 100 mg oral capsule take 1 capsule (100 mg) by oral route 3 times per day Name Start Date Expiration Date SIG Comments [...] 155b Units today. Need 1 Vial 1 [id number] hydrocodone-acetaminophen 7.5-500 mg oral tablet 08/06/2012 09/05/2012 take 1 tablet by oral route every 4-6 hours as needed for pain for 30 days sumatriptan succinate 6 mg/0.5 mL subcutaneous cartridge 08/19/2012 09/18/2012 INJECT 1 DOSE (6 MG/0.5 ML) - MAY REPEAT IN 1 HOUR IF PAIN RETURNS OR INCREASES IN SEVERITY (MAX OF 2 DOSES IN 24 HOURS) Fiorinal-Codeine #3 [id number] mg oral capsule 04/30/2012 05/11/2012 take 1 capsule (97-01-020-40 mg) by oral route every 4 hours [...] directed on mina simon given to patient Analy with Codeine 01-340-51-30 mg oral capsule 04/13/2013 08/03/2013 take 1 [...] HC BMI BSA BMI Percentile O2 Sat(%) 08/06/2017 9:37:00 AM 120 mmHg 60 mmHg 82 bpm 98.1 F 155.375 lbs 64 in 26.6698 kg/m 1.7839 m 95 % 04/29/2017 8:24:00 AM 118 mmHg 76 mmHg [...] rpm 97.1 F 126 lbs 64 in 21.63 kg/m2 1.61 m2 10/29/2013 10:14:00 AM 120 mmHg 60 mmHg 50 bpm 16 rpm 97 F 135.25 lbs 64 in 23.2154 kg/m 1.6644 m 10/05/2013 8:41:00 AM 122 mmHg 68 mmHg 56 bpm 16 rpm 96.4 F 134.375 lbs 64 in 23.07 kg/m2 1.66 m2 09/28/2013 8:32:00 AM 100 mmHg 60 mmHg 66 bpm 16 rpm 96.8 F 133 lbs 64 in 22.8292 kg/m 1.6505 m 08/03/2013 10:00:00 AM 132 mmHg 80 mmHg 78 bpm 18 rpm 97.6 F 137 lbs 64 in 23.52 kg/m2 1.68 m2 05/27/2013 8:19:00 AM 104 mmHg [...] rpm 97.6 F 149 lbs 64 in 25.5755 kg/m 1.747 m 06/03/2012 10:59:00 AM 124 mmHg 70 mmHg 78 bpm 18 rpm 97.2 F 160 lbs 64 in 27.46 kg/m2 1.81 m2 05/21/2012 10:20:00 AM 132 mmHg 70 mmHg 88 bpm 16 rpm 97.5 F 157 lbs 64 in 26.9487 kg/m 1.7932 m 05/06/2012 1:55:00 PM 122 mmHg 70 mmHg 78 bpm 16 rpm 97.7 F 161 lbs 64 in 27.64 kg/m2 1.82 m2 04/14/2012 1:27:00 PM 112 mmHg 70 mmHg 78 bpm 18 rpm 97.6 F 166 lbs 64 in 28.4935 kg/m 1.8439 m 03/26/2012 2:04:00 PM 116 mmHg 64 mmHg 76 bpm 16 rpm 97 F 155 lbs 64 in 26.61 kg/m2 1.78 m2 03/17/2012 9:45:00 AM 112 mmHg [...] rpm 97.4 F 160 lbs 64 in 27.4637 kg/m 1.8103 m 10/01/2011 10:32:00 AM 118 mmHg 60 mmHg 76 bpm 18 rpm 97.9 F 167 lbs 64 in 28.67 kg/m2 1.85 m2 09/17/2011 10:01:00 AM 114 mmHg 54 mmHg 74 bpm 18 rpm 97.9 F 164 lbs 64 in 28.1502 kg/m 1.8328 08/20/2011 9:34:00 AM 132 mmHg 80 mmHg 79 bpm 16 rpm 08/20/2011 8:48:00 AM 132 mmHg 74 mmHg 76 bpm 20 rpm 97.7 F 173 lbs 64 in 29.6951 kg/m 1.8824 m 08/06/2011 9:02:00 AM 122 mmHg 64 mmHg 88 bpm 18 rpm 97.5 F 173 lbs 64 in 29.70 kg/m2 1.88 m2 Social History Name Description Comments Tobacco Current every day smoker History of Procedures Date Ordered Description Order Status 01/03/2015 12:00 AM Botox Toxin Type A, 1 unit [id number] Reviewed 01/03/2015 12:00 AM CHEMODENERV MUSC MIGRAINE Reviewed 02/02/2015 12:00 AM Pain Management Reviewed 02/02/2015 12:00 AM Occupational Therapy Consult Reviewed 02/02/2015 12:00 AM Kenalog, Per 10 Mg [facility]#5659-1017-08 Reviewed 02/02/2015 12:00 AM DRAIN/INJ JOINT/BURSA W/O US Reviewed 04/10/2015 12:00 AM Botox Toxin Type A, 1 unit [id number] Reviewed 04/10/2015 12:00 AM CHEMODENERV MUSC MIGRAINE Reviewed 11/17/2015 12:00 AM INJ TRIGGER POINT 1/2 MUSCL Reviewed 08/06/2011 12:00 AM N BLOCK INJ OCCIPITAL Reviewed 08/06/2011 12:00 AM Phenergan 25 Mg Im [facility] [address]-46 (Physiatry) Reviewed 08/06/2011 12:00 AM Toradol 15 Mg,[facility]#[id number] Reviewed 08/20/2011 12:00 AM N BLOCK INJ OCCIPITAL Reviewed 08/20/2011 12:00 AM INJECT TRIGGER POINTS 3/> Reviewed 09/17/2011 12:00 AM INJECT TRIGGER POINTS 3/> Reviewed 09/17/2011 12:00 AM N BLOCK INJ OCCIPITAL Reviewed 10/01/2011 12:00 AM INJECT TRIGGER POINTS 3/> Reviewed 10/15/2011 12:00 AM INJECT TRIGGER POINTS 3/> Reviewed 10/15/2011 12:00 AM Imitrex 6mg [facility] #96882-530-55 Reviewed 10/15/2011 12:00 AM Imitrex, 6mg [facility]#: 3995-8018-01 Reviewed 11/04/2011 12:00 AM INJECT TRIGGER POINTS 3/> Reviewed 11/04/2011 12:00 AM Imitrex 6mg [facility] #41208-789-38 Reviewed 11/04/2011 12:00 AM N BLOCK INJ OCCIPITAL Reviewed 11/04/2011 12:00 AM DRAIN/INJ JOINT/BURSA W/O US Reviewed 12/05/2011 12:00 AM INJECT TRIGGER POINTS 3/> Reviewed 12/05/2011 12:00 AM N BLOCK INJ OCCIPITAL Reviewed 12/19/2011 12:00 AM INJECT TRIGGER POINTS 3/> Reviewed 12/19/2011 12:00 AM Imitrex 6mg [facility] #58143-549-17 Reviewed 12/19/2011 12:00 AM THER/PROPH/DIAG INJ SC/IM Reviewed 12/19/2011 12:00 AM Imitrex, rafaelg [facility]#: 3860-9293-22 Reviewed 01/02/2012 12:00 AM INJECT TRIGGER POINTS 3/> Reviewed 01/02/2012 12:00 AM Imitrex 6mg [facility] #23011-139-91 Reviewed 01/02/2012 12:00 AM THER/PROPH/DIAG INJ SC/IM Reviewed 01/02/2012 12:00 AM Imitrex, rafaelg [facility]#: 1494-8805-57 Reviewed 01/02/2012 12:00 AM N BLOCK INJ [...] SC/IM Reviewed 02/06/2012 12:00 AM Imitrex, 6mg [facility]#: 9327-8212-74 Reviewed 02/06/2012 12:00 AM Imitrex 6mg [facility] #79754-442-32 Reviewed 02/06/2012 12:00 AM Therapeutic, prophylactic or diagnostic injection (specify substance or drug); subcutaneous or intramuscular Reviewed 03/03/2012 12:00 AM THER/PROPH/DIAG INJ SC/IM Reviewed 03/03/2012 12:00 AM Imitrex, 6mg [facility]#: 2121-3088-16 Reviewed 03/03/2012 12:00 AM N BLOCK OTHER PERIPHERAL Reviewed 03/03/2012 12:00 AM INJECT TRIGGER POINTS 3/> Reviewed 03/17/2012 12:00 AM THER/PROPH/DIAG INJ SC/IM Reviewed 03/17/2012 12:00 AM Imitrex, 6mg [facility]#: 1264-2534-51 Reviewed 03/17/2012 12:00 AM Norflex, Up to 60 Mg [facility]#84365-429-04 Reviewed 03/26/2012 12:00 AM INJECT TRIGGER POINTS 3/> Reviewed 03/26/2012 12:00 AM INJECTION,MARCAINE/BUPIVACAINJ [facility] [address]-01 ([place]) Reviewed 03/26/2012 12:00 AM Imitrex 6mg [facility] #90213-843-22 Reviewed 03/26/2012 12:00 AM Norflex, Up to 60 Mg [facility]#26858-353-87 Reviewed 04/29/2017 12:00 AM CHEMODENERV MUSC MIGRAINE Reviewed 04/14/2012 12:00 AM THER/PROPH/DIAG INJ SC/IM Reviewed 04/14/2012 12:00 AM Imitrex, 6mg [facility]#: 5420-6977-65 Reviewed 04/14/2012 12:00 AM THER/PROPH/DIAG INJ SC/IM Reviewed 04/14/2012 12:00 AM Norflex, Up to 60 Mg [facility]#57192-194-36 Reviewed 04/14/2012 12:00 AM N BLOCK INJ OCCIPITAL Reviewed 04/14/2012 12:00 AM INJECT TRIGGER POINTS 3/> Reviewed 04/14/2012 12:00 AM Bupivicaine, 30 ml [facility]#0008-5[address]-86 Reviewed 05/06/2012 12:00 AM Bupivicaine, 30 ml [facility]#1169-7610-63 Reviewed 05/06/2012 12:00 AM INJECT TRIGGER POINTS 3/> Reviewed 05/06/2012 12:00 AM Norflex, Up to 60 Mg [facility]#11704-603-39 Reviewed 05/06/2012 12:00 AM Imitrex 6mg [facility] #54355-938-36 Reviewed 05/06/2012 12:00 AM N BLOCK INJ OCCIPITAL Reviewed 05/06/2012 12:00 AM Kenalog, Per 10 Mg [facility]#3683-2552-95 Reviewed 05/21/2012 12:00 AM Truman Chemodenervation muscle(s); muscle(s) innervated by facial Reviewed 05/21/2012 12:00 AM TRUMAN CHEMODENERVATION MUSCLE(S); NECK MUSCLE(S)(EG, FOR SPASMODIC Reviewed 05/21/2012 12:00 AM BOTULINUM TOXIN TYPE A, PER UNIT-Botox [facility] [id number] Huizar Reviewed 06/03/2012 12:00 AM INJECT TRIGGER POINTS 3/> Reviewed 06/03/2012 12:00 AM Bupivicaine, 30 ml [facility]#8615-2345-89 Reviewed 06/03/2012 12:00 AM Imitrex 6mg [facility] #55969-536-69 Reviewed 06/03/2012 12:00 AM Norflex, Up to 60 Mg [place]#67849-998-58 Reviewed 06/03/2012 12:00 AM THER/PROPH/DIAG INJ SC/IM Reviewed 06/03/2012 12:00 AM Imitrex, 6mg ND#: 1470-0256-75 Reviewed 06/03/2012 12:00 AM Norflex, Up to 60 Mg [facility]#37386-493-21 Reviewed 07/01/2012 12:00 AM INJECT TRIGGER POINTS 3/> Reviewed 07/01/2012 12:00 AM Bupivicaine, 30 ml [facility]#7050-8435-14 Reviewed 07/01/2012 12:00 AM N BLOCK INJ OCCIPITAL Reviewed 07/07/2012 12:00 AM THER/PROPH/DIAG INJ SC/IM Reviewed 07/07/2012 12:00 AM Imitrex, 6mg [facility]#: 5968-0901-99 Reviewed 07/07/2012 12:00 AM Toradol 15 Mg [facility]#9665-8222-49 Reviewed 07/15/2012 12:00 AM INJECT TRIGGER POINTS 3/> Reviewed 07/15/2012 12:00 AM INJECTION,MARCAINE/BUPIVACAINJ [facility] [address]-63 ([place]unter) Reviewed 07/15/2012 12:00 AM MASSAGE THERAPY Reviewed 07/15/2012 12:00 AM THER/PROPH/DIAG INJ SC/IM Reviewed 07/15/2012 12:00 AM Imitrex, 6mg ND#: 2342-5764-14 Reviewed 07/15/2012 12:00 AM Norflex, Up to 60 Mg [facility]#74345-367-43 Reviewed 07/15/2012 12:00 AM Imitrex 6mg [facility] #82585-417-64 Reviewed 07/15/2012 12:00 AM Norflex, Up to 60 Mg [facility]#05520-673-03 Reviewed 08/06/2012 12:00 AM INJECT TRIGGER POINTS 3/> Reviewed 08/06/2012 12:00 AM N BLOCK INJ OCCIPITAL Reviewed 08/06/2012 12:00 AM THER/PROPH/DIAG INJ SC/IM Reviewed 08/06/2012 12:00 AM Imitrex, 6mg ND#: 8111-2191-73 Reviewed 08/06/2012 12:00 AM Norflex, Up to 60 Mg [facility]#75664-941-49 Reviewed 08/19/2012 12:00 AM BOTULINUM TOXIN TYPE A, PER UNIT-Botox [facility] [id number] Bhupendra Reviewed 08/19/2012 12:00 AM Truman Chemodenervation muscle(s); muscle(s) innervated by facial Reviewed 08/19/2012 12:00 AM TRUMAN CHEMODENERVATION MUSCLE(S); NECK MUSCLE(S)(EG, FOR SPASMODIC Reviewed 08/19/2012 12:00 AM Imitrex 6mg [facility] #60104-773-98 Reviewed 08/19/2012 12:00 AM Norflex, Up to 60 Mg [facility]#47135-147-68 Reviewed 08/19/2012 12:00 AM THER/PROPH/DIAG INJ SC/IM Reviewed 08/19/2012 12:00 AM Imitrex, 6mg [facility]#: 0133-9727-25 Reviewed 08/19/2012 12:00 AM Norflex, Up to 60 Mg [facility]#30817-759-47 Reviewed 09/02/2012 12:00 AM Bupivicaine, 30 ml [facility]#1552-6683-14 Reviewed 09/02/2012 12:00 AM INJECT TRIGGER POINTS 3/> Reviewed 09/02/2012 12:00 AM Imitrex 6mg [facility] #40658-413-66 Reviewed 09/02/2012 12:00 AM Norflex, Up to 60 Mg [facility]#00572-144-88 Reviewed 09/02/2012 12:00 AM Imitrex, 6mg [facility]#: 8227-2379-95 Reviewed 09/16/2012 12:00 AM THER/PROPH/DIAG INJ SC/IM Reviewed 09/16/2012 12:00 AM Norflex, Up to 60 Mg [facility]#79709-132-49 Reviewed 09/16/2012 12:00 AM INJECT TRIGGER POINTS 3/> Reviewed 09/16/2012 12:00 AM Imitrex 6mg [facility] #13854-394-92 Reviewed 09/16/2012 12:00 AM Norflex, Up to 60 Mg [facility]#68282-798-48 Reviewed 11/17/2012 12:00 AM Imitrex 6mg [facility] #87737-935-88 Reviewed 11/17/2012 12:00 AM THER/PROPH/DIAG INJ SC/IM Reviewed 11/17/2012 12:00 AM Toradol 30 Mg [facility]#5671-7035-42 Reviewed 11/17/2012 12:00 AM Bupivicaine, 30 ml [facility]#4727-9676-13 Reviewed 11/17/2012 12:00 AM INJECT TRIGGER POINTS 3/> Reviewed 11/17/2012 12:00 AM Imitrex 6mg [facility] #09793-567-66 Reviewed 11/17/2012 12:00 AM Norflex, Up to 60 Mg [facility]#49825-337-65 Reviewed 11/17/2012 12:00 AM N BLOCK INJ OCCIPITAL Reviewed 12/01/2012 12:00 AM INJECT TRIGGER POINTS 3/> Reviewed 05/27/2013 12:00 AM THER/PROPH/DIAG INJ SC/IM Reviewed 05/27/2013 12:00 AM Norflex, Up to 60 Mg [facility]#92002-830-93 Reviewed 06/07/2013 12:00 AM INJECT TRIGGER POINTS 3/> Reviewed 06/24/2013 12:00 AM THER/PROPH/DIAG INJ SC/IM Reviewed 06/24/2013 12:00 AM Norflex, Up to 60 Mg [facility]#55221-844-86 Reviewed 06/24/2013 12:00 AM INJECT TRIGGER POINTS 3/> Reviewed 06/24/2013 12:00 AM N BLOCK INJ OCCIPITAL Reviewed 07/08/2013 12:00 AM INJECT TRIGGER POINTS 3/> Reviewed 07/08/2013 12:00 AM THER/PROPH/DIAG INJ SC/IM Reviewed 07/08/2013 12:00 AM Norflex 30 mg IM [facility]#21425-727-36 Reviewed 07/08/2013 12:00 AM THER/PROPH/DIAG INJ SC/IM Reviewed 07/22/2013 12:00 AM INJECT TRIGGER POINTS 3/> Reviewed 07/22/2013 12:00 AM THER/PROPH/DIAG INJ SC/IM Reviewed 07/22/2013 12:00 AM Norflex 30 mg IM [facility]#08225-560-51 Reviewed 07/22/2013 12:00 AM THER/PROPH/DIAG INJ SC/IM Reviewed 08/03/2013 12:00 AM INJ TRIGGER POINT 1/2 MUSCL Reviewed 08/03/2013 12:00 AM THER/PROPH/DIAG INJ SC/IM Reviewed 08/03/2013 12:00 AM Norflex 30 mg IM [facility]#66306-499-63 Reviewed 08/03/2013 12:00 AM Imitrex, 6mg [facility]#: 7619-0286-57 Reviewed 08/24/2013 12:00 AM INJECT TRIGGER POINTS 3/> Reviewed 08/24/2013 12:00 AM THER/PROPH/DIAG INJ SC/IM Reviewed 08/24/2013 12:00 AM Norflex 30 mg IM [facility]#77736-812-14 Reviewed 09/07/2013 12:00 AM INJECT TRIGGER POINTS 3/> Reviewed 09/07/2013 12:00 AM THER/PROPH/DIAG INJ SC/IM Reviewed 09/07/2013 12:00 AM Norflex 30 mg IM [facility]#85869-066-05 Reviewed 09/21/2013 12:00 AM Botox Toxin Type A, 1 unit [id number] Reviewed 09/21/2013 12:[address] [facility] MIGRAINE Reviewed 09/23/2013 12:00 AM INJECT TRIGGER POINTS 3/> Reviewed 11/08/2013 12:00 AM N BLOCK INJ OCCIPITAL Reviewed 11/08/2013 12:00 AM Kenalog, Per 10 Mg [facility]#1179-5332-54 [facility] Medicare Reviewed 12/21/2013 12:00 AM Botox Toxin Type A, 1 unit [id number] Reviewed 12/21/2013 12:[address] [facility] MIGRAINE Reviewed 03/25/2014 12:00 AM THER/PROPH/DIAG INJ SC/IM Reviewed 03/25/2014 12:00 AM Norflex, Up to 60 Mg [facility]#93547-976-34 Reviewed 05/17/2014 12:00 AM Interventional Pain Consult Reviewed 05/17/2014 12:00 AM Occupational Therapy Consult Reviewed 07/12/2014 12:00 AM DRAIN/INJ JOINT/BURSA W/O US Reviewed 07/12/2014 12:00 AM Kenalog, Per 10 Mg [facility]#5037-6098-02 Reviewed 10/11/2014 12:00 AM Botox Toxin Type A, 1 unit [id number] Reviewed 10/11/2014 12:[address] [facility] MIGRAINE Reviewed Results Summary Not available. History [...] Sep 13 2011 2:13PM myofascial pain Sep 2011 8:20AM Headache Sep 2011 9:14AM Migraine [...] Fibromyalgia Feb 2013 8:27AM Chronic pain syndrome b 2013 8:27AM Depression and anxiety May 27 [...] 17 2014 8:56AM Chronic low back pain May 17 2014 8:56AM Memory difficulties May 17 2014 8:56AM Muscle tension headache May 17 2014 8:56AM Myofascial muscle pain May 10 2014 8:56AM Myofascial pain Jun 10 [...] status migrainosus Apr 29 2017 8: 28AM Chronic migraine w/o aura, intractable, w status migrainosus Aug 06 2017 9: 40AM Payers Insurance Name Company Name Plan Name Plan Number Policy Number Policy Group Number Start Date Medicare Part B [employer] [place] [id number] Saturday, 2011 [facility] [id number] N/A Medicare RHC Medicare RHC [id number] Wednesday, 2011 Medicare Part A Medicare - Lab/Xray [id number] Friday, January 052010 [place] [employer] [facility] [place] [employer] [id number] N/A History of Encounters Visit Date Visit Type Provider 08/06/2017 Procedures Israel Alvarez DO 04/29/2017 Procedures Israel Alvarez DO 03/14/2017 Office visit Israel Alvarez DO 01/31/2017 Procedures Israelpepper Alvarez DO 11/07/2016 Procedures Ivelisse HUNTP 08/08/2016 Procedures Ivelisse HUNTP 05/09/2016 Procedures Ivelisse HUNTP 02/08/2016 Procedures Ivelisse HUNTP 11/17/2015 Office visit Ivelisse HUNTP 11/09/2015 Procedures Ivelisse HUNTP 08/10/2015 Procedures Ivelisse HUNTP 04/10/2015 Procedures Ivelisse HUNTP 02/02/2015 Office visit Penny Ayers MD 01/03/2015 Procedures Ivelisse HUNTP 10/11/2014 Procedures Ivelisse HUNTP 08/02/2014 Office visit Ivelisse LANDAVERDE 2014 Office [...] visit Ivelisse LANDAVERDE 08/03/2013 Office visit Penny Ayesr MD 07/22/2013 Office visit Ivelisse LANDAVERDE 07/08/2013 Office visit Ivelisse LANDAVERDE 06/24/2013 Office visit Ivelisse LANDAVERDE 06/07/2013 Office visit Ivelisse LANDAVERDE 05/27/2013 Office visit Penny Ayers MD 12/01/2012 Office visit Ivelisse LANDAVERDE 11/17/2012 Office visit Penny Ayers MD 09/16/2012 Office visit Olivia Cisneros PUBLICITY WRITER 09/02/2012 Office visit Olivia Cisneros PUBLICITY WRITER 08/19/2012 Office visit Olivia Cisneros PUBLICITY WRITER 08/06/2012 Office visit Penny Ayers MD 07/15/2012 Office visit Olivia Cisneros PUBLICITY WRITER 07/07/2012 Office visit Penny Ayers MD 07/01/2012 Office visit Olivia Cisneros PUBLICITY WRITER 06/03/2012 Office visit Olivia Cisneros PUBLICITY WRITER 05/21/2012 Office visit Penny Ayers MD 05/06/2012 Office visit Olivia Cisneros PUBLICITY WRITER 04/14/2012 Office visit Olivia Cisneros PUBLICITY WRITER 03/26/2012 Office visit Olivia Cisneros PUBLICITY WRITER 03/17/2012 Office visit Penny Ayers MD 03/03/2012 Office visit Olivia Cisneros PUBLICITY WRITER 02/06/2012 Office visit Penny Ayers MD 01/21/2012 [...]
[2017-09-11] MEDS ORDERED: ceFAZolin 1,000 MG (ANCEF) VIAL ONE (08:47)
[2017-09-11] MEDS ORDERED: NS (IVPB) 50 ML ONE (08:47)
--- OUTSIDE RECORDS SUMMARY | 2017-09-11 08:59 | XMS REPORT ---
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 Active 17184039 Problem Colon polyp K63.5 Active 07058167 Problem Bilateral low back pain without sciatica M54.5 Active 536780901 Problem Screening breast examination Z12.39 Active 601271801 Problem Postmenopausal Z78.0 Active 01227698 Problem Osteopenia M85.80 Active 481581403 Problem Cigarette nicotine dependence without complication F17.210 Active 64806353 Problem Type 2 diabetes mellitus with diabetic peripheral angiopathy without gangrene E11.51 Active 976079568 Problem Vascular dementia without behavioral disturbance F01.50 Active [id number] Problem Unspecified atherosclerosis of pilot [place] arteries of extremities, unspecified extremity I70.209 Active 505041869378307 Problem Arthritis M19.90 Active 3111995 Problem Chronic atrial fibrillation I48.2 Active 145756174 Problem Chronic obstructive pulmonary disease with acute lower respiratory infection J44.0 Active 166688743 Problem Other chronic pancreatitis K86.1 Active 017169306 Problem Stress incontinence of urine N39.3 Active 51927611 Problem Controlled type 2 diabetes mellitus without complication, without long -term current use of insulin E11.9 Active 183959611 Problem Unspecified psychosis F29 Active 17997312 Problem Xeroderma Q80.9 Active 04171022 Problem COPD (chronic obstructive pulmonary disease) J44.9 Active 88624260 Problem Dementia without behavioral disturbance, unspecified dementia type F03.90 Active 02639985 Problem Gastroparesis K31.84 Active 241176438 Problem Type 2 diabetes mellitus with diabetic neuropathy, without long-term current use of insulin E11.40 Active 30976385 Problem Osteoporosis M81.0 Active 17985148 Problem Atherosclerosis of pilot [place] artery of both lower extremities with intermittent claudication I70.213 Active 185793777186035 Problem Hyperlipidemia E78.5 Active 42531295 Problem Diabetic polyneuropathy associated with type 2 diabetes mellitus E11.42 Active 26391838 Problem Essential tremor G25.0 Active 65173677 Problem 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 I25.118 Active 0303575680667 Problem Generalized anxiety disorder F41.1 Active 294043731 Problem Gastroesophageal reflux disease, esophagitis presence not specified K21.9 Active 781654431 Problem Coronary artery disease involving pilot station coronary artery of pilot station 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 I25.118 Active 7102946490880 Problem Postconcussion syndrome F07.81 Active 87058888 Problem Chronic pain syndrome G89.4 Active 834653524 Problem Migraine without aura and without status migrainosus, not intractable G43.009 Active 236197792 Problem Paroxysmal atrial fibrillation I48.0 Active 700918082 Problem Migraine without aura and with status migrainosus, not intractable G43.001 Active 863893783 Problem Cervicalgia M54.2 Active 0921882770128 Problem Acute exacerbation of chronic obstructive pulmonary disease (COPD) J44.1 Active 111833285 Problem Major depressive disorder, recurrent episode, moderate F33.1 Active 168342482 Problem Crohn''s disease without complication, unspecified gastrointestinal tract location K50.90 Active 81584570 Problem Chronic fatigue R53.82 Active 55011229 Problem Bipolar affective disorder, currently depressed, moderate F31.32 Active 843781142 ALLERGIES No Information ENCOUNTERS Encounter Location Date Diagnosis [place] [id number] [address] Oct, [facility] [address] [address] Jul, [place] [address] [address] Jul, Bipolar affective disorder, currently depressed, moderate F31.32 ; Vascular dementia without behavioral disturbance F01.50 and Generalized anxiety disorder F41.1 [place] [id number] [place] [address] 64633- 9054 Jul, [facility] [address] [address] Jul, Type 2 diabetes mellitus with diabetic neuropathy, without long-term current use of insulin E11.40 and Elevated liver enzymes R74.8 [facility] [address] [address] Jul, [facility] [address] 05[address]- 0640 Jul, [place] [address] [address] Jul, [facility] [address] 56291- 5432 Jul, Post-menopausal Z78.0 [facility] [address] 27396- 3259 Jul, Stress incontinence of urine N39.3 [facility] [id number] [place] [address] 88119- 7211 Jul, [facility] [id number] [place] [address] 96749- 9702 Jul, [facility] [id number] [place] [address] 28926- 3198 Jul, Stress incontinence of urine N39.[address] [facility] [id number] [place] [address] 12815- 9852 Jul, [facility] [address] [address]687- 9363 Jul, [facility] [address] 17582- 9192 Jul, [facility] [id number] [place] [address] 80792- 4919 Jul, Gastroesophageal reflux disease, esophagitis presence not specified K21.9 [facility] [id number] [place] [address] 16795- 7335 29 Jun, 2017 Diabetic polyneuropathy associated with type [address] [facility] [id number] [place] [address] 28 Jun, 2017 Diabetic polyneuropathy associated with type 2 diabetes mellitus E11.42 ; Coronary artery disease involving pilot station coronary artery of pilot station 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 I25.118 and Paroxysmal atrial fibrillation I48.0 [facility] [id number] [place] [address] 56050- 5527 Jun, [facility] [address] 05087- 8209 Jun, [facility] [id number] [place] [address] 53655- 4912 Jun, Gastroenteritis K52.9 [facility] [address] 99316- 6227 Jun, Gastroenteritis K52.9 [facility] [id number] [place] [address] 74251- 8957 Jun, [facility] [id number] [place] [address] 91012- 2416 Jun, 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 [address] [place] [address] 52464 -7817 17 Jun, 2017 Cough R05 and Chronic obstructive pulmonary disease with acute lower respiratory infection J44.0 [facility] [address] [place] [address] 67909- 7036 Jun, [facility] [id number] [place] [address] 08532- 4780 Jun, Coughing R05 ; Unspecified atherosclerosis of pilot [place] arteries of extremities, unspecified extremity I70.209 ; Type 2 diabetes mellitus with diabetic peripheral angiopathy without gangrene E11.51 ; Crohn''s disease without complication, unspecified gastrointestinal tract location K50.90 ; Other chronic pancreatitis K86.1 and Chronic atrial fibrillation I48.2 [facility] [address] [place] [address] 33565 -5975 Jun, [facility] [id number] [place] [address] 45599- 1168 Jun, Bipolar affective disorder, currently depressed, moderate F31.32 ; Vascular dementia without behavioral disturbance F01.50 and Generalized anxiety disorder F41.1 [place] [address] [place] [address] 99941- 7922 May, Generalized anxiety disorder F41.1 [place] [id number] [place] [address] 37995- 7973 May, [facility] [id number] [place] [address] 99309- 6344 May, [facility] [address] [place] [address] 49168- 0728 May, Coughing R05 [place] [address] [place] [address] 35340- 5029 May, [place] [id number] [place] [address] 37042- 8662 May, Bipolar affective disorder, currently depressed, moderate F31.32 ; Vascular dementia without behavioral disturbance F01.50 and Generalized anxiety disorder F41.1 [place] [id number] [place] [address] 76976- 2759 Apr, Generalized anxiety disorder F41.1 [facility] [id number] [place] [address] 80195- 3199 Apr, [facility] [id number] [place] [address] 89242- 6218 Apr, Vascular dementia without behavioral disturbance F01.50 ; Generalized anxiety disorder F41.1 and Bipolar affective disorder, currently depressed, moderate F31.32 [facility] [id number] [place] [address] 00411- 4573 Apr, Generalized anxiety disorder F41.1 [facility] [id number] [place] [address] 55694 -8784 Apr, Cough R05 and Acute exacerbation of chronic obstructive pulmonary disease (COPD) J44.1 [place] [address] 59572- 7101 Apr, [facility] [id number] [place] [address] 17806 -7330 Mar, Cough R05 and Cigarette nicotine dependence without complication F17.210 [place] [id number] [place] [address] 36566- 6385 Mar, [place] [id number] [place] [address] 54546- 7845 Feb, Generalized anxiety disorder F41.1 ; Major depressive disorder, recurrent episode, moderate F33.1 ; Vascular dementia without behavioral disturbance F01.50 and Unspecified psychosis F29 [facility] [id number] [place] [address] 11432- 8140 Feb, [facility] [id number] [place] [address] 08775- 0625 Feb, [place] [id number] [place] [address] 59313- 8988 Feb, Generalized anxiety disorder F41.1 [facility] [address] [place] [address]- 5429 14 Feb, 2017 Generalized anxiety disorder F41.1 [place] [address] 88178- 1027 Feb, Dizziness R42 ; Chronic fatigue R53.82 ; Postconcussion syndrome F07.81 ; Fall, initial encounter W19.XXXA and Disorientation R41.0 [place] [address] 04999- 8639 Feb, Postconcussion syndrome F07.81 ; Injury of head, initial encounter S09.90XA ; Fall, initial encounter W19.XXXA ; Disorientation R41.0 and Acute cystitis with hematuria N30.01 [place] [id number] [place] [address] 82005- 7155 Jan, Gastroesophageal reflux disease, esophagitis presence not specified K21.9 ; Post-menopausal Z78.0 and Migraine without aura and without status migrainosus, not intractable G43.009 [facility] [id number] [place] [address] 83811- 0981 Jan, [place] [address] 96070- 0104 Jan, Generalized anxiety disorder F41.1 ; Major depressive disorder, recurrent episode, moderate F33.1 ; Vascular dementia without behavioral disturbance F01.50 and Unspecified psychosis F29 [place] [id number] [place] [address] 03959- 9581 Jan, Pneumonia of left lower lobe due to infectious organism J18.1 [facility] [id number] [place] [address] 99556- 9870 Jan, Migraine without aura and with status migrainosus, not intractable G43.001 [facility] [address] [place] [address] 84183 -4839 Jan, Migraine without aura and without status migrainosus, not intractable G43.009 [facility] [address] [address]- 0792 Dec, H[address] T14.8 [facility] [id number] [place] [address] 28134- 6642 Dec, [facility] [address] [address] Nov, Fatigue, unspecified type R53.83 [facility] [id number] [place] [address] 10693- 3905 Nov, Scabies B86 and Coronary artery disease involving pilot station coronary artery of pilot station 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 I25.118 [facility] [id number] [place] [address] 72314- 3108 Nov, [facility] [id number] [place] [address] 06933- 6818 Nov, [facility] [id number] [place] [address] 04030- 3724 Oct, [facility] [id number] [place] [address] 29570- 5736 Oct, Generalized anxiety disorder F41.1 and Major depressive disorder, recurrent episode, moderate F33.1 [facility] [address] [place] [address] 14906- 4587 Oct, Cramp of both lower extremities R25.2 [facility] [id number] [place] [address] 19710- 0708 Oct, Leg cramps R25.2 [facility] [address] [place] [address] 45864- 9032 Oct, Chronic pain syndrome G89.4 [facility] [id number] [place] [address] 70573- 2898 Oct, [facility] [id number] [place] [address] 49936- 4376 Oct, [facility] [id number] [place] [address] 00724- 5620 11 Oct, 2016 Routine gynecological examination Z01.419 and Screening for breast cancer Z12.31 [place] [id number] [place] [address] 96702- 9214 28 Sep, 2016 Diarrhea R19.7 [place] [address] [place] [address] 19128- 5286 Sep, Back pain M54.9 [place] [address] [place] [address] 39265- 0927 Sep, [place] [address] [place] [address] 96891- 5214 Sep, [facility] [id number] [place] [address] 30269 -6396 August, Xeroderma Q80.9 [place] [address] 76337- 0556 August, Dementia without behavioral disturbance, unspecified dementia type F03.90 [place] [address] [place] [address] 55523- 6914 August, Chronic pain syndrome G89.4 [place] [id number] [place] [address] 99813- 0271 August, [place] [address] [place] [address] 54292- 8426 August, Hyperlipidemia E78.5 ; Other fatigue R53.83 and Other specified hypotension I95.89 [facility] [id number] [place] [address] 50536 -2817 August, Dysuria R30.0 ; Other fatigue R53.83 and Other specified hypotension I95.89 [place] [address] [place] [address] 51727- 3308 August, [place] [address] [place] [address] 87556- 7218 Jul, Pain in left knee M25.562 and Gastroenteritis K52.9 [place] [address] 80830- 5270 Jul, [place] [address] 36249- 6572 Jul, Diarrhea R19.7 [facility] [address] 15525 -6282 Jul, Spider bite, accidental or unintentional, initial encounter T63.301A [place] [address] 62963- 4410 Jul, Primary osteoarthritis of right knee M17.11 and Arthritis M19.90 [place] [address] 34211- 9365 Jul, Generalized anxiety disorder F41.1 and Major depressive disorder, recurrent episode, moderate F33.1 [place] [address] 40481- 0525 07 Jul, 2016 Type 2 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 and Temporal headache R51 [place] [address] 46353- 0276 Jul, Back pain M54.9 [place] [address] 95701- 8866 Jul, [place] [address] 11897- 3342 Jul, [place] [id number] [place] [address] 04693- 1973 Jun, Nausea R11.0 [facility] [address] 16126 -7520 Jun, Acute suppurative otitis media of both ears without spontaneous rupture of tympanic membranes, recurrence not specified H66.003 and COPD exacerbation J44.1 [place] [address] [place] [address] [place] [address]- 2113 Jun, Generalized anxiety disorder F41.1 [facility] [id number] [place] [address] 90819- 8145 16 Jun, 2016 [facility] [id number] [place] [address] 26061 -9913 Jun, [facility] [address] 09561 -9809 Jun, Shortness of breath R06.02 and COPD exacerbation J44.1 [place] [address] 21984- 3828 10 Jun, 2016 Eczema, unspecified type L30.9 [place] [id number] [place] [address] 75831- 4629 Jun, [place] [address] 50069- 1455 May, [place] [id number] [place] [address] 70736- 3846 May, Muscle cramping R25.2 [place] [address] 03924- 1064 May, [place] [id number] [place] [address] 66133- 3462 Apr, Diarrhea R19.7 [place] [id number] [place] [address] 40212- 9932 Apr, [place] [id number] [place] [address] 42859- 8693 Apr, Chronic pain syndrome G89.4 [place] [id number] [place] [address] 11636- 5594 Apr, Cramp of both lower extremities R25.2 and Vascular dementia without behavioral disturbance F01.50 [place] [address] 97211- 2578 Apr, Type 2 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 and Cigarette nicotine dependence without complication F17.210 [place] [address] 67896- 0368 Mar, Generalized anxiety disorder F41.1 [place] [address] 28023- 1599 Feb, Generalized anxiety disorder F41.1 and Major depressive disorder, recurrent episode, moderate F33.1 [place] [address] 56456- 2516 Feb, [facility] [address] 26991 -7302 Feb, Dysuria R30.0 and Acute cystitis with hematuria N30.01 [place] [address] 32176- 1452 Jan, [place] [address] 64098- 2865 Jan, [place] [address] 01443- 0749 Jan, [place] [address] 36242- 4921 Jan, [facility] [address] 11567 -5198 Jan, Wasp sting, accidental or unintentional, initial encounter T63.461A [place] [address] 53158- 8621 Jan, Encounter for immunization Z23 [place] [address] 56109- 7190 Jan, [place] [address] 23662- 8586 Jan, [place] [address] 36000- 0725 28 Dec, 2015 Generalized anxiety disorder F41.1 and Major depressive disorder, recurrent episode, moderate F33.1 [facility] [id number] [place] [address] 43019- 5459 21 Dec, 2015 Routine gynecological examination Z01.419 ; Postmenopausal Z78.0 ; Screening breast examination Z12.39 ; Osteopenia M85.80 and Breast cancer screening Z12.39 [facility] [id number] [place] [address] 86456- 2296 20 Dec, 2015 [facility] [id number] [place] [address] 14755- 7340 19 Dec, 2015 [facility] [id number] [place] [address] 11531- 1601 16 Dec, 2015 [facility] [id number] [place] [address] 04252- 4184 16 Dec, 2015 [facility] [id number] [place] [address] 13401- 8088 14 Dec, 2015 [facility] [id number] [place] [address] 94079- 0610 06 Dec, 2015 [facility] [id number] [place] [address] [id number]- [phone] Nov, [facility] [id number] [place] [id number] Nov, Cough R05 ; Other viral agents as the cause of diseases classified elsewhere B97.89 and Acute upper respiratory infection, unspecified J06.9 [facility] [address] [id number] [address] Nov, [facility] [id number] [place] [address]- [id number] Nov, [facility] [id number] [place] [address] [id number] Nov, [facility] [address] [id number] [address] 15 Nov, 2015 [facility] [id number] [place] [id number]- [phone] Nov, [facility] [id number] [place] [id number] [id number] Oct, [facility] [address] [id number] [place] [address] 70117- 6407 Oct, [facility] [id number] [place] [address] 40543- 9639 Oct, [facility] [id number] [place] [address] 45802- 0483 Oct, Chronic pain syndrome G89.4 [facility] [id number] [place] [address] 14265- 9460 Sep, Generalized anxiety disorder F41.1 and Major depressive disorder, recurrent episode, moderate F33.1 [facility] [id number] [place] [address] 22273- 4600 Sep, [facility] [id number] [place] [address] 56102- 2062 Sep, [facility] [id number] [place] [address] 23020- 0338 Sep, Generalized anxiety disorder F41.1 [facility] [id number] [place] [address] 01989- 2402 Sep, Cramp of both lower extremities R25.[address] [facility] [address] [address]- 0487 Sep, Generalized anxiety disorder F41.1 [facility] [id number] [place] [address] 17207- 7272 Sep, [facility] [address] [address] August, Rash R21 ; Itching L29.9 and Allergic response, subsequent encounter T78.40XD [facility] [id number] [place] [address] 36873- 9554 August, Primary insomnia F51.01 [facility] [id number] [place] [address] 79433 -9024 August, Rash R21 ; Itching L29.9 and Allergic response, initial encounter T78.40XA [place] [address] 84751- 4249 August, [facility] [address] 74387- 7990 August, Cramp of both lower extremities R25.2 [facility] [id number] [place] [address] 75685- 8119 August, Back pain M54.9 [facility] [address] 01925- 9823 August, [facility] [address] 70595- 5848 August, [facility] [id number] [place] [address] 91496 -6885 August, Cramp of both lower extremities R25.2 [facility] [id number] [place] [address] 36417- 9854 August, [facility] [address] 17456- 6119 August, Syncope R55 ; Paroxysmal atrial fibrillation I48.0 ; Dementia without behavioral disturbance, unspecified dementia type F03.90 and Chronic pain syndrome G89.4 [facility] [place] [address] 43730- 5417 August, Type 2 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 and Syncope R55 [place] [address] 04738- 3688 Jul, [facility] [address] [facility] [id number] [address] [address] Jul, [facility] [address] [facility] [id number] [address]- [address] Jul, [facility] [address] [facility] [id number] [address]- [address] Jul, [facility] [address] [facility] [id number] [address]- 1835 Jul, [facility] [address] [facility] [id number] [place] [address]- 9173 Jul, UTI (urinary tract infection) N39.0 [facility] [address] [facility] [id number] [address]- 5587 Jul, [facility] [address] [address]- 2218 Jul, Major depressive disorder, recurrent episode, moderate F33.1 and Generalized anxiety disorder F41.1 [facility] [address] [address]- 8952 Jul, Generalized anxiety disorder F41.1 [facility] [address] [address]- 8687 14 Jul, [address] [facility] [address] [address]- 9426 Jul, [facility] [address] [id number] [address]- 1420 Jun, [facility] [address] [facility] [id number] [place] [address]- 3589 Jun, Eczema L30.9 [facility] [address] [facility] [id number] [address]- 9991 Jun, [facility] [address] [id number] [address]- 9477 17 Jun, 2015 COPD (chronic obstructive pulmonary disease) J44.9 [facility] [address] [address]- 2820 Jun, [facility] [id number] [place] [address] 31823- 4461 Jun, Major depressive disorder, recurrent episode, moderate F33.1 and Generalized anxiety disorder F41.1 [facility] [address] [place] [address] 19484- 2548 May, [facility] [address] [address]- 5539 May, UTI (urinary tract infection) N39.0 [facility] [address] [place] [address] 96322- 3587 May, [facility] [id number] [place] [address] 97102- 7713 May, [facility] [address] [address]- 7777 May, [facility] [address] [address]- 0631 May, [facility] [address] [address]- 3635 Apr, Major depressive disorder, recurrent episode, moderate F33.1 and Generalized anxiety disorder F41.1 [facility] [address] [address]- 5071 Apr, COPD (chronic obstructive pulmonary disease) J44.9 [facility] [address] [address]- 8232 Apr, [facility] [address] [place] [address] 63833- 7586 Apr, Atrial flutter I48.92 [facility] [address] [address]- 0883 Apr, [facility] [address] [address]- 3679 Apr, [facility] [id number] [place] [address] 24294- 5[address] Mar, [facility] [address] [id number] [address]- 5030 Mar, [facility] [id number] [place] [address] 30552- 3723 Mar, [facility] [id number] [place] [address] 20858- 8538 Mar, Hyperlipidemia E78.5 ; Type 2 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 ; Major depressive disorder, recurrent episode, moderate F33.1 and Chronic pain syndrome G89.4 [facility] [id number] [place] [address] 84765- 0609 Mar, [facility] [id number] [place] [address] 80735- 3586 Mar, [facility] [id number] [place] [address] 85032- 1272 Mar, [facility] [id number] [place] [address] 81208- 6520 Mar, [facility] [address] [place] [address] 93502- 2840 Feb, COPD (chronic obstructive pulmonary disease) J44.9 and Back pain M54.9 [facility] [address] [address]- 0921 Feb, [facility] [id number] [place] [address] 35131- 9518 Feb, [facility] [address] [address]- 9815 Feb, [facility] [id number] [place] [address] 99687- 1542 Feb, [facility] [address] [address]- 83[address] Feb, [facility] [id number] [place] [address] 68124- 6417 Feb, [facility] [id number] [place] [address] 55028- 2390 Feb, [facility] [id number] [place] [address] 06326- 7418 Feb, [facility] [id number] [place] [address] 18783- 8106 Feb, Diabetes E11.9 ; Back pain M54.9 and COPD (chronic obstructive pulmonary disease) J44.9 [facility] [id number] [place] [address] 31462- 7161 Jan, [facility] [id number] [place] [address] 58030- 3210 Jan, Major depression, recurrent F33.9 and Generalized anxiety disorder F41.1 [facility] [id number] [place] [address] 57574- 1642 Jan, Chronic pain G89.29 [facility] [id number] [place] [address] 89921- 8240 Jan, [facility] [id number] [place] [address] 97911- [address] Jan, [facility] [id number] [place] [address] 66854- 8579 Jan, [facility] [id number] [place] [address] 68659- 1858 Jan, [facility] [id number] [place] [address] 72377- 5311 Jan, Nicotine dependence F17.200 [facility] [id number] [place] [address] 02696- 0060 Jan, Nicotine dependence F17.200 and Back pain M54.9 [facility] [id number] [place] [address] 29953- 3[address] Jan, [facility] [id number] [place] [address] 50155- 2008 28 Dec, 2014 [facility] [id number] [place] [address] 88104- 8805 25 Dec, 2014 Anxiety, generalized 300.02 and Major depression, recurrent 296.30 [facility] [id number] [place] [address] 98733- 6271 24 Dec, 2014 [facility] [address] 30775- 1643 21 Dec, 2014 [facility] [id number] [place] [address] 13744- 4651 17 Dec, 2014 [facility] [id number] [place] [address] 24959- 6136 15 Dec, 2014 [facility] [id number] [place] [address] 23014- 9010 14 Dec, 2014 [facility] [id number] [place] [address] 77027- 4331 11 Dec, 2014 [facility] [id number] [place] [address] 40998- 3937 10 Dec, 2014 [facility] [id number] [place] [address] 37360- 3639 08 Dec, [address] [facility] [id number] [place] [address] 16484- 0721 08 Dec, 2014 Routine gynecological examination V72.31 ; Breast cancer screening V76.10 and Family history of breast cancer in first degree relative V16.3 [facility] [id number] [place] [address] 62565- 2921 03 Dec, 2014 [facility] [id number] [place] [address] 29848- 0992 Dec, [facility] [address] [address]- 6046 Nov, [facility] [id number] [place] [address] 74857- 7856 Nov, [facility] [id number] [place] [address] 28134- 9368 Nov, Poor balance 781.99 and Vascular dementia, uncomplicated 290.40 [facility] [address] [place] [address] 84464- 5572 Nov, [facility] [id number] [place] [address] 86055- 6549 Nov, Major depression, recurrent 296.30 and Anxiety, generalized 300.02 [facility] [id number] [place] [address] 71898- 3672 Nov, [facility] [address] [place] [address] 24512- 2292 Nov, [facility] [address] [place] [address] 48409- 1281 Nov, [facility] [address] [place] [address] 59727- 3582 Nov, [facility] [address] [place] [address] 03131- 3612 Nov, Vascular dementia, uncomplicated 290.[address] [facility] [address] [address]- 3233 Nov, [facility] [id number] [place] [address] 84112- 2277 Nov, [facility] [address] [address]- 0622 Nov, [facility] [address] [address]- 8[address] Oct, [facility] [address] [address]- 2726 Oct, [facility] [address] [address]- 8053 Oct, [facility] [address] [address]- 6696 Oct, COPD (chronic obstructive pulmonary disease) [address] [facility] [address] [address]- 5661 Oct, Major depression, recurrent 296.30 and Anxiety, generalized 300.02 [facility] [id number] [address]- 0640 Oct, [facility] [address] [address]- 7917 Oct, [facility] [address] [address]- 2279 Oct, [facility] [address] [address]- 8780 Sep, Lumbago 724.2 and Anxiety state, unspecified 300.00 [facility] [address] [address]- 0198 Sep, [facility] [address] [address]- 3438 Sep, [facility] [address] [address]- 1413 August, [facility] [address] [address]- 3623 August, Major depression, recurrent 296.30 ; Anxiety, generalized 300.02 and No condition on Valera II V71.09 [facility] [address] [address]- [address] August, [facility] [id number] [place] [address]- 0935 August, [facility] [address] [id number] [place] [address]- 6595 29 Jul, 2014 [facility] [place] [facility] [address] [id number] [place] [address]- 0136 14 Jul, 2014 [facility] [place] [facility] [address] [id number] [place] [address]- 2850 Jul, [facility] [place] [facility] [address] [id number] [place] [address]- 0197 30 Jun, 2014 [facility] [place] [facility] [address] [id number] [place] [address]- 6071 30 Jun, 2014 [facility] [place] [facility] [address] [id number] [place] [address]- 7328 27 Jun, 2014 [facility] [place] [facility] [address] [id number] [place] [address]- 6579 27 Jun, 2014 [facility] [place] [facility] [address] [id number] [place] [address]- 9770 26 Jun, 2014 [facility] [place] [facility] [address] [id number] [place] [address]- 4898 23 Jun, 2014 [facility] [place] [facility] [address] [id number] [place] [address]- 6653 23 Jun, 2014 [facility] [place] [facility] [address] [id number] [place] [address]- 7265 17 Jun, 2014 [facility] [place] [facility] [address] [id number] [place] [address]- 6817 13 Jun, 2014 [facility] [place] [facility] [address] [id number] [place] [address]- 9671 13 Jun, 2014 [facility] [place] [facility] [address] [id number] [place] [address]- 8695 10 Jun, 2014 [facility] [place] [facility] [address] [id number] [place] [address]- 1922 10 Jun, 2014 [facility] [place] [facility] [address] [id number] [place] [address]- 1050 07 Jun, 2014 [facility] [place] [facility] [address] [id number] [place] [address]- 7969 07 Jun, 2014 [facility] [place] [facility] [address] [id number] [place] [address]- 4223 02 Jun, 2014 [facility] [place] [facility] [address] [id number] [place] [address]- 5600 Jun, 2014 [facility] [place] [facility] [address] [id number] [place] [address]- 0937 May, 2014 [facility] [place] [facility] [address] [id number] [place] [address]- 3563 May, 2014 [facility] [place] [facility] [address] [facility] [id number] [place] [address]- 4988 May, 2014 [facility] [place] [facility] [address] [id number] [place] [address]- 4921 May, 2014 [facility] [place] [facility] [address] [id number] [place] [address]- 6270 May, 2014 [facility] [place] [facility] [address] [facility] [id number] [place] [address]- 1746 May, 2014 [facility] [place] [facility] [address] [facility] [id number] [place] [address]- 9872 May, 2014 [facility] [place] [facility] [address] [id number] [place] [address]- 4635 12 May, 2014 [facility] [place] [facility] [address] [id number] [place] [address]- 2032 May, 2014 [facility] [place] [facility] [address] [facility] [id number] [place] [address]- 7791 May, 2014 [facility] [place] [facility] [address] [facility] [id number] [place] [address]- 8859 06 May, 2014 [facility] [place] [facility] [address] [id number] [place] [address]- 5680 May, [facility] [place] [facility] [address] [id number] [place] [address]- 2159 May, [facility] [place] [facility] [address] [id number] [place] [address]- 3266 May, [facility] [place] [facility] [address] [id number] [place] [address]- 8290 Apr, [facility] [place] [facility] [address] [id number] [place] [address] Apr, [facility] [place] [facility] [address] [id number] [place] [address] Apr, [facility] [place] [facility] [address] [id number] [place] [address] Apr, [facility] [place] [facility] [address] [id number] [place] [address] Apr, [facility] [place] [facility] [address] [id number] [place] [address] Apr, [facility] [place] [facility] [address] [id number] [place] [address] Apr, [facility] [place] [facility] [address] [id number] [place] [address] Apr, [facility] [place] [facility] [address] [id number] [place] [address] Apr, [facility] [place] [facility] [address] [id number] [place] [address] Apr, [facility] [place] [facility] [address] [id number] [place] [address] Apr, [facility] [place] [facility] [address] [id number] [place] [address] Apr, [facility] [place] [facility] [address] [id number] [place] [address] 31 Mar, 2014 [facility] [place] [facility] [address] [id number] [place] [address] 31 Mar, 2014 [facility] [place] [facility] [address] [id number] [place] [address] 30 Mar, 2014 [facility] [place] [facility] [address] [id number] [place] [address] 30 Mar, 2014 [facility] [place] [facility] [address] [id number] [place] [address] 9427 29 Mar, 2014 [facility] [place] [facility] [address] [id number] [place] [address] 29 Mar, 2014 [facility] [place] [facility] [address] [id number] [place] [address] Mar, [facility] [place] [facility] [address] [id number] [place] [address] Mar, [facility] [place] [facility] [address] [id number] [place] [address] 15 Mar, 2014 [facility] [place] [facility] [address] [id number] [place] [address] 1531 15 Mar, 2014 [facility] [place] [facility] [address] [id number] [place] [address] 7660 15 Mar, 2014 [facility] [place] [facility] [address] [id number] [place] [address] 15 Mar, 2014 [facility] [place] [facility] [address] [id number] [place] [address] 2736 15 Mar, 2014 [facility] [place] [facility] [address] [id number] [place] [address]261 15 Mar, 2014 [facility] [place] [facility] [address] [id number] [place] [address] 08 Mar, 2014 [facility] [place] [facility] [address] [id number] [place] [address] 08 Mar, 2014 [facility] [place] [facility] [address] [id number] [place] [address] Mar, [facility] [place] [facility] [address] [id number] [place] [address] Mar, [facility] [place] [facility] [address] [id number] [place] [address] Mar, [facility] [place] [facility] [address] [id number] [place] [address] Mar, [facility] [place] [facility] [address] [id number] [place] [address] 35[address] Feb, [facility] [place] [facility] [address] [id number] [place] [address] Feb, [facility] [place] [facility] [address] [id number] [place] [address] 79[address] Feb, [facility] [place] [facility] [address] [id number] [place] [address] 15[address] Feb, [facility] [place] [facility] [address] [id number] [place] [address] Feb, [facility] [place] [facility] [address] [id number] [place] [address] Feb, [facility] [place] [facility] [address] [facility] [id number] [place] [address] Feb, [facility] [place] [facility] [address] [id number] [place] [address] Feb, [facility] [place] [facility] [address] [id number] [place] [address] Feb, [facility] [place] [facility] [address] [id number] [place] [address] Feb, [facility] [place] [facility] [address] [id number] [place] [address] Feb, [facility] [place] [facility] [address] [id number] [place] [address] Feb, [facility] [place] [facility] [address] [id number] [place] [address] Feb, [facility] [place] [facility] [address] [id number] [place] [address] Feb, [facility] [place] [facility] [address] [id number] [place] [address] Feb, [facility] [place] [facility] [address] [id number] [place] [address] Feb, [facility] [place] [facility] [address] [id number] [place] [address] Feb, [facility] [place] [facility] [address] [id number] [place] [address] Jan, [facility] [place] [facility] [address] [id number] [place] [address] 8547 Jan, [facility] [place] [facility] [address] [id number] [place] [address] 65[address] Jan, [facility] [place] [facility] [address] [id number] [place] [address] Jan, [facility] [place] [facility] [address] [id number] [place] [address] Jan, [facility] [place] [facility] [address] [id number] [place] [address] Jan, [facility] [place] [facility] [address] [id number] [address] Jan, [facility] [place] [facility] [address] [id number] [place] [address] 0914 Jan, [facility] [place] [facility] [address] [id number] [place] [address] Jan, [facility] [place] [facility] [address] [address] [id number] [place] [address] Jan, [facility] [place] [facility] [address] [id number] [place] [address] 379[address] Jan, [facility] [place] [facility] [address] [id number] [place] [address]192 Dec, [facility] [place] [facility] [address] [id number] [place] [address] Dec, [facility] [place] [facility] [address] [id number] [place] [address] 7789 Nov, [facility] [place] [facility] [address] [id number] [place] [address] 3844 Nov, [facility] [place] [facility] [address] [id number] [place] [address] 5528 Nov, [facility] [place] [facility] [address] [id number] [place] [address] 8939 Nov, [facility] [place] [facility] [address] [id number] [place] [address] 1093 Nov, [facility] [place] [facility] [address] [id number] [place] [address]- 4752 Nov, [facility] [place] [facility] [address] [id number] [place] [address] 6777 Nov, [facility] [place] [facility] [address] [id number] [place] [address] 3826 Oct, [facility] [place] [facility] [address] [id number] [place] [address] 2100 Oct, [facility] [place] [facility] [address] [id number] [place] [address] 4141 Oct, [facility] [place] [facility] [address] [id number] [place] [address] 5160 Oct, [facility] [place] [facility] [address] [id number] [place] [address]- 0277 Sep, [facility] [place] [facility] [address] [id number] [place] [address] 0708 Sep, [facility] [place] [facility] [address] [id number] [place] [address] 2903 Sep, [facility] [place] [facility] [address] [id number] [place] [address]- 3307 Sep, [facility] [place] [facility] [address] [id number] [place] [address]- 0497 Sep, [facility] [place] [facility] [address] [id number] [place] [address] 9994 Sep, [facility] [place] [facility] [address] [id number] [place] [address]- 5849 Sep, [facility] [place] [facility] [address] [id number] [place] [address]- 5166 Sep, [facility] [place] [facility] [address] [id number] [place] [address]- 1571 Sep, [facility] [place] [facility] [address] [id number] [place] [address]- 5093 Sep, [facility] [place] [facility] [address] [id number] [place] [address] 6390 Sep, [facility] [place] [facility] [address] [id number] [place] [address]- 4535 Sep, [facility] [place] [facility] [address] [id number] [place] [address]- 0388 Sep, [facility] [place] [facility] [address] [id number] [place] [address]- 4158 Sep, [facility] [place] [facility] [address] [id number] [place] [address]- 1569 August, [facility] [place] [facility] [address] [id number] [place] [address] 7371 August, [facility] [place] [facility] [address] [id number] [place] [address] 0197 August, [facility] [place] [facility] [address] [id number] [place] [address]- 7706 August, [facility] [address] [id number] [place] [address] 5878 August, [facility] [place] [facility] [address] [id number] [place] [address]- 8879 August, [facility] [place] [facility] [address] [id number] [place] [address] 7176 August, [facility] [place] [facility] [address] [id number] [place] [address]- 9655 August, [facility] [place] [facility] [address] [id number] [place] [address]- 6758 August, [facility] [place] [facility] [address] [id number] [place] [address]- 5807 August, [facility] [place] [facility] [address] [id number] [place] [address] 8018 August, [facility] [place] [facility] [address] [id number] [place] [address] 9576 August, [facility] [place] [facility] [address] [id number] [place] [address] 1067 August, [facility] [place] [facility] [address] [id number] [place] [address] 1687 August, [facility] [place] [facility] [address] [id number] [place] [address]- 3298 August, [facility] [place] [facility] [address] [id number] [place] [address]- 5274 August, [facility] [place] [facility] [address] [id number] [place] [address]- 4525 August, [facility] [place] [facility] [address] [id number] [place] [address] August, [facility] [place] [facility] [address] [id number] [place] [address] August, [facility] [place] [facility] [address] [id number] [place] [address]- 2177 Jul, [facility] [place] [facility] [address] [id number] [place] [address]- 9265 Jul, [facility] [place] [facility] [address] [id number] [place] [address]- 6467 Jul, [facility] [place] [facility] [address] [id number] [place] [address]- 9053 Jul, [facility] [place] [facility] [address] [id number] [place] [address]- 0994 Jun, [facility] [place] [facility] [address] [id number] [place] [address]- 7786 Jun, [facility] [place] [facility] [address] [id number] [place] [address]- 3189 Jun, [facility] [place] [facility] [address] [id number] [place] [address]- 7666 Jun, [facility] [place] [facility] [address] [id number] [place] [address]- 0411 Jun, [facility] [place] [facility] [address] [id number] [place] [address]- 7964 Jun, [facility] [place] [facility] [address] [facility] [id number] [place] [address]- 0626 Jun, [facility] [place] [facility] [address] [id number] [place] [address]- 2929 Jun, [facility] [place] [facility] [address] [id number] [place] [address]- 5770 Jun, [facility] [place] [facility] [address] [id number] [place] [address]- 5836 Jun, [facility] [place] [facility] [address] [id number] [place] [address]- 7303 May, [facility] [place] [facility] [address] [id number] [place] [address]- 4004 May, [facility] [place] [facility] [address] [id number] [place] [address]- 5384 May, [facility] [place] [facility] [address] [id number] [place] [address]- 5956 May, [facility] [place] [facility] [address] [id number] [place] [address]- 4976 May, [facility] [place] [facility] [address] [id number] [place] [address]- 8336 May, [facility] [place] [facility] [address] [id number] [place] [address]- 3229 20 May, 2013 [facility] [place] [facility] [address] [id number] [place] [address]- 4056 May, [facility] [place] [facility] [address] [facility] [id number] [place] [address]- 1939 May, [facility] [place] [facility] [address] [id number] [place] [address]- 1768 18 May, 2013 [facility] [place] [facility] [address] [id number] [place] [address]- 9857 18 May, 2013 [facility] [place] [facility] [address] [facility] [id number] [place] [address]- 8492 17 May, 2013 [facility] [place] [facility] [address] [facility] [id number] [place] [address]- 9666 May, [facility] [place] [facility] [address] [id number] [place] [address]- 2547 May, 2013 [facility] [place] [facility] [address] [id number] [place] [address]- 8537 10 May, 2013 [facility] [place] [facility] [address] [id number] [place] [address]- 5191 07 May, 2013 [facility] [place] [facility] [address] [facility] [id number] [place] [address]- 2541 07 May, 2013 [facility] [place] [facility] [address] [id number] [place] [address]- 8576 17 Apr, 2013 [facility] [address] [id number] [place] [address]- 6842 Apr, [facility] [address] [id number] [place] [address]- 2836 Apr, [facility] [address] [id number] [place] [address]- 1336 Apr, [facility] [address] [id number] [place] [address]- 3405 Apr, [facility] [address] [id number] [place] [address]- 4378 Apr, [facility] [address] [id number] [place] [address]- 0718 Apr, [facility] [address] [id number] [place] [address]- 4059 Mar, [facility] [address] [id number] [place] [address]- 8391 Mar, [facility] [address] [id number] [place] [address]- 1497 Mar, [facility] [address] [id number] [place] [address]- 4305 Mar, [facility] [address] [id number] [place] [address]- 4698 Mar, [facility] [address] [id number] [place] [address]- 0091 Mar, [facility] [place] [facility] [address] [id number] [place] [address]- 9276 Mar, [facility] [address] [id number] [place] [address]- 1076 Mar, [facility] [address] [id number] [place] [address]- 7749 Mar, [facility] [place] [facility] [address] [id number] [place] [address]- 7644 Mar, [facility] [place] [facility] [address] [id number] [place] [address]- 7846 Mar, [facility] [place] [facility] [address] [id number] [place] [address]- 1653 Feb, [facility] [place] [facility] [address] [id number] [place] [address]- 4473 Feb, [facility] [place] [facility] [address] [id number] [place] [address]- 3937 Feb, [facility] [place] [facility] [address] [id number] [place] [address]- 4120 Feb, [facility] [place] [facility] [address] [id number] [place] [address]- 5576 Feb, [facility] [place] [facility] [address] [id number] [place] [address]- 2502 Feb, [facility] [place] [facility] [address] [id number] [place] [address]- 0743 15 Feb, 2013 [facility] [place] [facility] [address] [id number] [address]- 2571 14 Feb, 2013 [facility] [place] [facility] [address] [id number] [place] [address]- 0124 14 Feb, 2013 [facility] [place] [facility] [address] [id number] [place] [address]- 5773 13 Feb, 2013 [facility] [place] [facility] [address] [id number] [place] [address]- 5874 13 Feb, 2013 [facility] [place] [facility] [address] [id number] [place] [address]- 0983 12 Feb, 2013 [facility] [place] [facility] [address] [id number] [place] [address]- 3973 12 Feb, 2013 [facility] [place] [facility] [address] [id number] [place] [address]- 7356 Feb, [facility] [place] [facility] [address] [id number] [place] [address]- 0188 Feb, [facility] [place] [facility] [address] [id number] [place] [address]- 3011 Feb, [facility] [place] [facility] [address] [id number] [place] [address]- 0278 Jan, [facility] [place] [facility] [address] [id number] [place] [address]- 8412 Jan, [facility] [place] [facility] [address] [id number] [place] [address]- 5790 Jan, [facility] [place] [facility] [address] [id number] [place] [address]- 4587 Jan, [facility] [place] [facility] [address] [id number] [place] [address]- 3278 Jan, [facility] [place] [facility] [address] [id number] [place] [address]- 2724 Jan, [facility] [place] [facility] [address] [id number] [place] [address]- 1339 Jan, [facility] [place] [facility] [address] [id number] [place] [address]- 5898 Jan, [facility] [place] [facility] [address] [id number] [place] [address]- 1229 10 Jan, 2013 [facility] [place] [facility] [address] [id number] [place] [address]- 6995 27 Dec, 2012 [facility] [place] [facility] [address] [id number] [place] [address]- 0568 20 Dec, 2012 [facility] [place] [facility] [address] [id number] [place] [address]- 0375 19 Dec, 2012 [facility] [place] [facility] [address] [id number] [address]- 6693 10 Dec, 2012 [facility] [place] [facility] [address] [id number] [place] [address]- 6332 04 Dec, 2012 [facility] [place] [facility] [address] [id number] [place] [address]- 2582 Dec, [facility] [place] [facility] [address] [id number] [place] [address]- 9774 Nov, [facility] [place] [facility] [address] [id number] [place] [address]- 2242 Nov, [facility] [place] [facility] [address] [id number] [place] [address]- 8468 Nov, [facility] [place] [facility] [address] [id number] [place] [address]- 7162 Nov, [facility] [place] [facility] [address] [id number] [place] [address]- 7293 Nov, [facility] [place] [facility] [address] [id number] [place] [address]- 9804 Nov, [facility] [place] [facility] [address] [id number] [place] [address]- 7056 Nov, [facility] [place] [facility] [address] [id number] [place] [address]- 4854 Nov, [facility] [place] [facility] [address] [id number] [place] [address]- 3214 Nov, [facility] [place] [facility] [address] [id number] [place] [address]- 2772 Nov, [facility] [place] [facility] [address] [id number] [place] [address]- 0796 17 Oct, 2012 [facility] [place] [facility] [address] [id number] [place] [address]- 0496 Oct, [facility] [place] [facility] [address] [id number] [place] [address]- 2545 08 Oct, 2012 [facility] [place] [facility] [address] [id number] [place] [address]- 6199 Oct, [facility] [address] [id number] [place] [address]- 9155 Oct, [facility] [place] [facility] [address] [id number] [place] [address]- 4060 Oct, [facility] [place] [facility] [address] [id number] [place] [address]- 3687 Oct, [facility] [place] [facility] [address] [id number] [place] [address]- 8452 Oct, [facility] [place] [facility] [address] [id number] [place] [address]- 1601 Sep, [facility] [place] [facility] [address] [id number] [place] [address]- 6149 Sep, [facility] [place] [facility] [address] [id number] [place] [address]- 9604 Sep, [facility] [place] [facility] [address] [id number] [place] [address]- 5295 Sep, [facility] [place] [facility] [address] [id number] [place] [address]- 1307 Sep, [facility] [place] [facility] [address] [id number] [place] [address]- 4023 Sep, [facility] [place] [facility] [address] [id number] [place] [address]- 0822 Sep, [facility] [place] [facility] [address] [id number] [place] [address]- 6472 Sep, [facility] [place] [facility] [address] [id number] [place] [address]- 2697 August, [facility] [place] [facility] [address] [id number] [place] [address]- 4617 August, [facility] [place] [facility] [address] [id number] [place] [address]- 0506 August, [facility] [place] [facility] [address] [id number] [place] [address]- 4374 August, [facility] [address] [id number] [place] [address]- 7385 August, [facility] [address] [id number] [place] [address]- 3668 Jul, [facility] [address] [id number] [place] [address]- 1637 Jul, [facility] [address] [id number] [place] [address]- 1070 Jul, [facility] [address] [id number] [place] [address]- 1697 Jul, [facility] [address] [id number] [place] [address]- 8387 Jul, [facility] [address] [id number] [place] [address]- 2492 Jun, [facility] [address] [id number] [place] [address]- 1756 18 Jun, 2012 [facility] [address] [id number] [place] [address]- 0757 15 Jun, 2012 [facility] [address] [id number] [place] [address]- 0112 14 Jun, 2012 [facility] [address] [id number] [place] [address]- 8113 Jun, [facility] [address] [id number] [place] [address]- 4112 Jun, [facility] [place] [facility] [address] [id number] [place] [address]- 9821 Jun, [facility] [address] [id number] [place] [address]- 8122 Jun, [facility] [address] [id number] [place] [address]- 7129 Jun, [facility] [address] [id number] [place] [address]- 6786 May, [facility] [address] [id number] [place] [address]- 3677 May, [facility] [address] [id number] [place] [address]- 1087 May, [facility] [address] [id number] [place] [address]- 4511 May, [facility] [address] [id number] [place] [address]- 4213 Apr, [facility] [address] [id number] [place] [address]- 8831 Apr, [facility] [address] [id number] [place] [address]- 2975 Apr, [facility] [address] [id number] [place] [address]- 2587 Apr, [facility] [address] [id number] [place] [address]- 7515 Apr, [facility] [address] [id number] [place] [address]- 1677 Apr, [facility] [address] [id number] [place] [address]- 2558 Apr, [facility] [address] [id number] [place] [address]- 7652 Mar, [facility] [place] [id number] Mar, [facility] [address] [id number] [place] [address]- 6283 Mar, [facility] [address] [id number] [place] [address]- 7033 Mar, [facility] [address] [id number] [place] [address]- 9600 Mar, [facility] [place] [facility] [address] [id number] [place] [address]- 0578 Mar, [facility] [place] [facility] [address] [id number] [place] [address]- 8326 Mar, [facility] [place] [facility] [address] [facility] [id number] [place] [address]- 1856 Mar, [facility] [place] [facility] [address] [id number] [place] [address]- 1936 Mar, [facility] [place] [facility] [address] [id number] [place] [address]- 9495 Mar, [facility] [place] [facility] [address] [id number] [place] [address]- 3404 Mar, [facility] [place] [facility] [address] [id number] [place] [address]- 0715 Mar, [facility] [place] [facility] [address] [id number] [place] [address]- 4061 Mar, [facility] [place] [facility] [address] [id number] [place] [address] Mar, [facility] [place] [facility] [address] [id number] [place] [address] Mar, [facility] [place] [facility] [address] [id number] [place] [address] Mar, [facility] [place] [facility] [address] [id number] [address] Mar, [facility] [place] [facility] [address] [id number] [place] [address] Feb, [facility] [place] [facility] [address] [id number] [place] [address] Feb, [facility] [place] [facility] [address] [id number] [place] [address] Feb, [facility] [place] [facility] [address] [id number] [place] [address] Feb, [facility] [place] [facility] [address] [id number] [place] [address] Feb, [facility] [place] [facility] [address] [id number] [place] [address] Feb, [facility] [place] [facility] [address] [id number] [place] [address] Feb, [facility] [place] [facility] [address] [id number] [place] [address] Feb, [facility] [place] [facility] [address] [id number] [place] [address] Feb, [facility] [place] [facility] [address] [id number] [place] [address] Feb, [facility] [place] [facility] [address] [id number] [place] [address] Feb, [facility] [place] [facility] [address] [id number] [place] [address] Feb, [facility] [place] [facility] [address] [id number] [place] [address] Feb, [facility] [place] [facility] [address] [facility] [id number] [place] [address]65 Feb, [facility] [place] [facility] [address] [id number] [place] [address] Feb, [facility] [place] [facility] [address] [id number] [place] [address] 98[address] Feb, [facility] [place] [facility] [address] [id number] [place] [address] 85[address] Jan, [facility] [place] [facility] [address] [id number] [place] [address] Jan, [facility] [place] [facility] [address] [id number] [place] [address] 35[address] Jan, [facility] [place] [facility] [address] [id number] [place] [address] Jan, [facility] [place] [facility] [address] [id number] [place] [address]- 1583 Jan, [facility] [place] [facility] [address] [id number] [place] [address] 17[address] Jan, [facility] [place] [facility] [address] [id number] [place] [address] Jan, [facility] [place] [facility] [address] [id number] [place] [address]- [address] Jan, [facility] [place] [facility] [address] [id number] [place] [address] Jan, [facility] [place] [facility] [address] [id number] [place] [address] Jan, [facility] [place] [facility] [address] [id number] [place] [address] Jan, [facility] [address] [id number] [place] [address] Jan, [facility] [facility] [address] [id number] [place] [address] Jan, [facility] [address] [id number] [place] [address] Jan, [facility] [address] [id number] [place] [address] Jan, [facility] [place] [facility] [address] [id number] [place] [address] Jan, [facility] [place] [facility] [address] [id number] [place] [address] Jan, [facility] [place] [facility] [address] [id number] [address] Dec, [facility] [place] [facility] [address] [id number] [place] [address] 20 Dec, 2011 [facility] [place] [facility] [address] [id number] [place] [address] 2546 18 Dec, 2011 [facility] [place] [facility] [address] [id number] [place] [address] 2546 18 Dec, 2011 [facility] [place] [facility] [address] [id number] [place] [address] 2546 10 Dec, 2011 [facility] [place] [facility] [address] [id number] [place] [address] 2546 10 Dec, 2011 [facility] [place] [facility] [address] [id number] [place] [address]- [address] 10 Dec, 2011 [facility] [place] [facility] [address] [id number] [place] [address] 07 Dec, 2011 [facility] [place] [facility] [address] [id number] [place] [address]- [address]29 30 Nov, 2011 [facility] [address] [id number] [place] [address] Nov, [facility] [address] [id number] [place] [address]- [address] Nov, [facility] [place] [facility] [address] [id number] [place] [address] Nov, [facility] [place] [address] [id number] [place] [address] 2541 Nov, [facility] [place] [facility] [address] [id number] [place] [address]- [address]43 Nov, [facility] [place] [facility] [address] [id number] [place] [address] 2549 Oct, [facility] [place] [facility] [address] [id number] [place] [address]43 Oct, [facility] [place] [address] [id number] [place] [address]43 Oct, [facility] [place] [facility] [address] [id number] [place] [address]- [address]361 Oct, [facility] [place] [address] [id number] [place] [address]199 Oct, [facility] [place] [address] [id number] [place] [address]- 0916 Oct, [facility] [place] [facility] [address] [id number] [place] [address] 8511 Oct, [facility] [place] [facility] [address] [id number] [place] [address]- [address]100 Sep, [facility] [address] [id number] [place] [address]- [address] Sep, [facility] [address] [id number] [place] [address] 58[address] Sep, [facility] [address] [id number] [place] [address] 8732 Sep, [facility] [address] [id number] [place] [address] 22[address] Sep, [facility] [address] [id number] [place] [address] 15 Sep, 2011 [facility] [address] [id number] [place] [address]- [address]995 14 Sep, 2011 [facility] [address] [id number] [place] [address]- 6097 Sep, [facility] [address] [id number] [place] [address]- [address] 05 Sep, 2011 [facility] [address] [id number] [place] [address]- 9270 04 Sep, 2011 [facility] [address] [id number] [place] [address]- [address] August, [facility] [address] [id number] [place] [address]- 67[address] August, [facility] [address] [id number] [place] [address]- [address]876 August, [facility] [address] [id number] [place] [address]- 1226 August, [facility] [address] [id number] [place] [address]- 39[address] August, [facility] [facility] [address] [id number] [place] [address] Jul, [facility] [place] [facility] [address] [id number] [place] [address] Jul, [facility] [place] [facility] [address] [id number] [place] [address] Jul, [facility] [place] [facility] [address] [id number] [place] [address] Jul, [facility] [place] [facility] [address] [id number] [place] [address] Jul, [facility] [place] [facility] [address] [id number] [place] [address] Jul, [facility] [place] [facility] [address] [id number] [place] [address] Jul, [facility] [place] [facility] [address] [id number] [place] [address] Jun, [facility] [place] [facility] [address] [id number] [place] [address] Jun, [facility] [place] [facility] [address] [id number] [place] [address] Jun, [facility] [place] [facility] [address] [id number] [place] [address] Jun, [facility] [place] [facility] [address] [id number] [place] [address] Jun, [facility] [place] [facility] [address] [id number] [place] [address] May, [facility] [place] [facility] [address] [id number] [place] [address] May, [facility] [place] [facility] [address] [id number] [place] [address] May, [facility] [place] [facility] [address] [id number] [place] [address] May, [facility] [place] [facility] [address] [id number] [place] [address] May, [facility] [place] [facility] [id number] [place] [address], [place] [address]- [address] May, [facility] [place] [facility] [address] [facility] [id number] [place] [address] Apr, [facility] [place] [facility] [id number] [place] [address], [place] [address] Mar, [facility] [place] [facility] [address] [id number] [place] [address] Feb, [facility] [place] [facility] [address] [id number] [place] [address] Feb, [facility] [place] [address] [facility] [id number] [place] [address]- [address] Feb, [facility] [place] [facility] [address] [facility] [id number] [place] [address] Feb, [facility] [place] [facility] [address] [id number] [place] [address]- [address] Jan, [facility] [place] [facility] [address] [id number] [place] [address] Jan, [facility] [place] [address] [facility] [id number] [place] [address]- [address] Jan, [facility] [place] [facility] [address] [facility] [id number] [place] [address] Jan, [facility] [place] [facility] [address] [id number] [place] [address] 14 Jan, 2011 [facility] [place] [facility] [address] [id number] [place] [address] 19 Dec, 2010 [facility] [place] [facility] [address] [id number] [place] [address] 20 Oct, 2010 [facility] [place] [facility] [address] [id number] [place] [address] 78[address] August, [facility] [place] [facility] [address] [id number] [place] [address] 29 Mar, 2010 [facility] [place] [facility] [address] [id number] [place] [address] 27 Mar, 2010 [facility] [place] [facility] [address] [id number] [place] [address] 16 Mar, 2010 [facility] [address] [id number] [place] [address]- 7369 15 Mar, 2010 [facility] [place] [facility] [address] [id number] [place] [address] 8685 15 Mar, 2010 [facility] [place] [facility] [address] [id number] [address] 08 Mar, 2010 [facility] [address] [id number] [address] 03 Mar, 2010 [facility] [facility] [address] [id number] [place] [address] 24 Feb, 2010 [facility] [place] [facility] [address] [id number] [place] [address] 24 Feb, 2010 [facility] [address] [id number] [place] [address] 15 Feb, 2010 [facility] [address] [id number] [address] 19 Jan, 2010 [facility] [address] [id number] [place] [address] Jan, [facility] [address] [id number] [place] [address] 18 Jan, 2010 [facility] [address] [facility] [id number] [place] [address] Nov, [facility] [address] [facility] [id number] [place] [address] 90[address] Sep, [facility] [address] [facility] [id number] [place] [address] August, [facility] [address] [facility] [id number] [place] [address] 30 Mar, 2009 [facility] [address] [facility] [id number] [place] [address] Mar, [facility] [address] [facility] [id number] [place] [address]- [address] 17 Feb, 2009 [facility] [address] [facility] [id number] [place] [address]- [address] 10 Feb, 2009 [facility] [address] [id number] [address] 10 Feb, 2009 [facility] [address] [id number] [address] 10 Feb, 2009 [facility] [address] [facility] [id number] [place] [address]- 0[address] 06 Feb, 2009 [facility] [address] [facility] [id number] [place] [address]- 3668 27 Jan, 2009 [facility] [address] [facility] [id number] [place] [address]- [address]378 26 Jan, 2009 [facility] [address] [facility] [id number] [place] [address]- [address]27 20 Jan, 2009 [facility] [address] [facility] [id number] [place] [address]- 1423 19 Jan, 2009 [facility] [address] [facility] [id number] [place] [address] Nov, [facility] [address] [facility] [id number] [address] Sep, [facility] [address] [facility] [id number] [address] August, [facility] [address] [facility] [id number] [place] [address] Jul, [facility] [address] [facility] [id number] [place] [address] May, IMMUNIZATIONS No Known Immunizations SOCIAL HISTORY Never Assessed REASON FOR VISIT Refill request PLAN OF CARE VITAL SIGNS MEDICATIONS Unknown [...]
--- OUTSIDE RECORDS SUMMARY | 2017-09-11 09:07 | XMS REPORT ---
Author Author KENIA FORBES Organization [facility] Address [address] [place] [address] Care Team Providers Care Logistic Specialist Name Role Phone KENIA FORBES Unavailable PROBLEMS Type Condition ICD9-CM Code UOI64-FS Code Onset Dates Condition Status SNOMED Code Problem History of common bile duct surgery Z98.89 Active 552335119 Problem Barretts esophagus K22.70 Active 617780482 Problem 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 Active 66127782 Problem Colon polyp K63.5 Active 01740464 Problem Bilateral low back pain without sciatica M54.5 Active 183384792 Problem Screening breast examination Z12.39 Active 161311318 Problem Postmenopausal Z78.0 Active 43341151 Problem Osteopenia M85.80 Active 922754026 Problem Cigarette nicotine dependence without complication F17.210 Active 57249010 Problem Type 2 diabetes mellitus with diabetic peripheral angiopathy without gangrene E11.51 Active 403311067 Problem Vascular dementia without behavioral disturbance F01.50 Active 55565555252595956 Problem Unspecified atherosclerosis of lyt[place] arteries of extremities, unspecified extremity I70.209 Active 638192005720368 Problem Arthritis M19.90 Active 0397861 Problem Chronic atrial fibrillation I48.2 Active 384206199 Problem Chronic obstructive pulmonary disease with acute lower respiratory infection J44.0 Active 657342697 Problem Other chronic pancreatitis K86.1 Active 973911577 Problem Stress incontinence of urine N39.3 Active 24318737 Problem Controlled type 2 diabetes mellitus without complication, without long -term current use of insulin E11.9 Active 074464155 Problem Unspecified psychosis F29 Active 20093252 Problem Xeroderma Q80.9 Active 61932132 Problem COPD (chronic obstructive pulmonary disease) J44.9 Active 49764581 Problem Dementia without behavioral disturbance, unspecified dementia type F03.90 Active 37775351 Problem Gastroparesis K31.84 Active 055729657 Problem Type 2 diabetes mellitus with diabetic neuropathy, without long-term current use of insulin E11.40 Active 60534319 Problem Osteoporosis M81.0 Active 25205644 Problem Atherosclerosis of lyt[place] artery of both lower extremities with intermittent claudication I70.213 Active 693974809070995 Problem Hyperlipidemia E78.5 Active 93258075 Problem Diabetic polyneuropathy associated with type 2 diabetes mellitus E11.42 Active 45208230 Problem Essential tremor G25.0 Active 94651683 Problem 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 Active 6364229972130 Problem Generalized anxiety disorder F41.1 Active 393091175 Problem Gastroesophageal reflux disease, esophagitis presence not specified K21.9 Active 793172669 Problem Coronary artery disease involving lytton coronary artery of lytton 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 I25.118 Active 6421848575542 Problem Postconcussion syndrome F07.81 Active 85073192 Problem Chronic pain syndrome G89.4 Active 257167473 Problem Migraine without aura and without status migrainosus, not intractable G43.009 Active 488856527 Problem Paroxysmal atrial fibrillation I48.0 Active 123706075 Problem Migraine without aura and with status migrainosus, not intractable G43.001 Active 399431594 Problem Cervicalgia M54.2 Active 2427944938254 Problem Acute exacerbation of chronic obstructive pulmonary disease (COPD) J44.1 Active 442287362 Problem Major depressive disorder, recurrent episode, moderate F33.1 Active 678719367 Problem Crohn''s disease without complication, unspecified gastrointestinal tract location K50.90 Active 34982769 Problem Chronic fatigue R53.82 Active 71739099 Problem Bipolar affective disorder, currently depressed, moderate F31.32 Active 233920923 ALLERGIES No Information ENCOUNTERS Encounter Location Date Diagnosis [facility] [address] [facility] [id number] [address] Nov, [facility] [address], [place] [address] Oct, [facility] [address] [address] Sep, [facility] [address] [facility] [id number], [place] [address] Sep, [place] [id number], [place] [address] August, [facility] [address] [place] [id number] [place] [address] 40520- 3761 August, [facility] [address], [place] [address] August, Type 2 diabetes mellitus with diabetic neuropathy, without long-term current use of insulin E11.40 and Sprain of right ankle, unspecified ligament, initial encounter S93.401A [facility] [address], [place] [address] August, [facility] [address] [place] [id number] [place] [address] 33016- 8197 August, [facility] [address] [place] [id number] [place] [address] 04585- 8468 August, [facility] [address] [place] [id number] [place] [address] 22653- 7201 August, Gastroesophageal reflux disease, esophagitis presence not specified K21.9 [facility] [address] [place] [id number] [address] August, [facility] [address], [place] [address] 85[address] August, [facility] [address], [place] [address] 94[address] August, [facility] [address], [place] [address] August, Type 2 diabetes mellitus with diabetic neuropathy, without long-term current use of insulin E11.40 and Elevated liver enzymes R74.8 [facility] [address], [place] [address] Jul, [facility] [address], [place] [address] 5[address] Jul, Cough R05 [facility] [address] [place] [id number] [place] [address] 53654- 1068 Jul, [facility] [address] [address]87- 7293 Jul, [facility] [address] 91434- 7523 Jul, Bipolar affective disorder, currently depressed, moderate F31.32 ; Vascular dementia without behavioral disturbance F01.50 and Generalized anxiety disorder F41.1 [facility] [address] [place] [id number] [place] [address] 62203- 8086 Jul, [place] [address] 98450- 7450 Jul, Type 2 diabetes mellitus with diabetic neuropathy, without long-term current use of insulin E11.40 and Elevated liver enzymes R74.8 [place] [address] 34724- 4337 Jul, [facility] [address] [place] [id number] [place] [address] 47488- 0303 Jul, [facility] [address] [place] [id number] [place] [address] 80220- 0318 Jul, [facility] [address] [place] [id number] [place] [address] 64070- 0410 Jul, Post-menopausal Z78.0 [facility] [address] 89287- 6392 Jul, Stress incontinence of urine N39.3 [facility] [address] [place] [id number] [place] [address] 24423- 6665 Jul, [facility] [address] [place] [id number] [place] [address] 00389- 5119 Jul, [facility] [address] [place] [id number] [place] [address] 29207- 2865 Jul, Stress incontinence of urine N39.3 and Cough R05 [facility] [address], [place] [address] 1412 Jul, [facility] [address] [place] [id number] [place] [address] 30049- 8139 Jul, [facility] [address], [place] [address]- 8369 Jul, [facility] [address] [place] [id number] [place] [address] 59251- 2462 Jul, Gastroesophageal reflux disease, esophagitis presence not specified K21.9 [facility] [address] [place] [address] 68588- 6411 Jun, Diabetic polyneuropathy associated with type 2 diabetes mellitus E11.42 [facility] [address] [place] [id number] [place] [address] 67698- 6285 Jun, Diabetic polyneuropathy associated with type 2 diabetes mellitus E11.42 ; Coronary artery disease involving lytton coronary artery of lytton 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 I25.118 and Paroxysmal atrial fibrillation I48.0 [facility] [address], [place] [address] 4057 Jun, [facility] [address] [place] [address] 73363- 4111 Jun, [facility] [address], [place] [address] 0518 Jun, Gastroenteritis K52.9 [facility] [address] [place] [id number] [place] [address] 69803- 1309 Jun, Gastroenteritis K52.9 [facility] [address], [place] [address] 3941 Jun, [facility] [address] [place] [id number] [place] [address] 47048- 8401 Jun, [facility] [address], [place] [address] 14[address] Jun, Sprain of right ankle, unspecified ligament, initial encounter S93.401A ; Type 2 diabetes mellitus with diabetic neuropathy, without long-term current use of insulin E11.40 ; Atherosclerosis of lyt[place] artery of both lower extremities with intermittent claudication I70.213 ; 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 ; Chronic atrial fibrillation I48.2 and Crohn''s disease without complication, unspecified gastrointestinal tract location K50.90 [facility] [address] [place] [id number] [place] [address] 07445 -8091 17 Jun, 2017 Chronic obstructive pulmonary disease with acute lower respiratory infection J44.0 and Cough R05 [place] [address] [place] [id number] [place] [address] 91598- 7891 Jun, [place] [address] [place] [id number] [place] [address] 93405- 9732 Jun, Coughing R05 ; Unspecified atherosclerosis of lyt[place] arteries of extremities, unspecified extremity I70.209 ; Type 2 diabetes mellitus with diabetic peripheral angiopathy without gangrene E11.51 ; Crohn''s disease without complication, unspecified gastrointestinal tract location K50.90 ; Other chronic pancreatitis K86.1 and Chronic atrial fibrillation I48.2 [facility] [address] [place] [id number] [place] [address] 37145 -0799 Jun, [place] [address] [place] [id number] [place] [address] 47513- 9514 Jun, Bipolar affective disorder, currently depressed, moderate F31.32 ; Vascular dementia without behavioral disturbance F01.50 and Generalized anxiety disorder F41.1 [place] [id number] [place] [address] 41367- 1179 May, Generalized anxiety disorder F41.1 [place] [address] [place] [id number] [place] [address] 06858- 9539 May, [place] [address] [place] [id number] [place] [address] 69081- 8607 May, [place] [address] [place] [id number] [place] [address] 44300- 5086 May, Coughing R05 [place] [id number] [place] [address] 73728- 2973 May, [place] [address] [place] [id number] [place] [address] 53621- 9351 May, Bipolar affective disorder, currently depressed, moderate F31.32 ; Vascular dementia without behavioral disturbance F01.50 and Generalized anxiety disorder F41.1 [place] [address] [place] [id number] [place] [address] 89878- 3806 Apr, Generalized anxiety disorder F41.1 [place] [address] [place] [id number] [place] [address] 38828- 2639 Apr, [place] [address] [place] [id number] [place] [address] 94618- 7269 Apr, Vascular dementia without behavioral disturbance F01.50 ; Generalized anxiety disorder F41.1 and Bipolar affective disorder, currently depressed, moderate F31.32 [place] [address] [place] [id number] [place] [address] 87563- 2105 Apr, Generalized anxiety disorder F41.1 [facility] [place] [id number] [place] [address] 07141 -2016 Apr, Cough R05 and Acute exacerbation of chronic obstructive pulmonary disease (COPD) J44.1 [place] [id number] [place] [address] 28995- 3832 Apr, [facility] [place] [address] [place] [id number] [place] [address] 18906 -3867 Mar, Cough R05 and Cigarette nicotine dependence without complication F17.210 [place] [id number] [place] [address] 24366- 2426 Mar, [place] [address] [place] [id number] [place] [address] 70103- 6206 Feb, Generalized anxiety disorder F41.1 ; Major depressive disorder, recurrent episode, moderate F33.1 ; Vascular dementia without behavioral disturbance F01.50 and Unspecified psychosis F29 [place] [address] [place] [id number] [place] [address] 24836- 4448 Feb, [place] [address] [place] [id number] [place] [address] 03485- 5737 Feb, [place] [address] [place] [id number] [place] [address] 95152- 7009 Feb, Generalized anxiety disorder F41.1 [place] [address] 07390- 7059 Feb, Generalized anxiety disorder F41.1 [place] [address] 00916- 1236 Feb, Dizziness R42 ; Chronic fatigue R53.82 ; Postconcussion syndrome F07.81 ; Fall, initial encounter W19.XXXA and Disorientation R41.0 [place] [id number] [place] [address] 73593- 6539 Feb, Postconcussion syndrome F07.81 ; Injury of head, initial encounter S09.90XA ; Fall, initial encounter W19.XXXA ; Disorientation R41.0 and Acute cystitis with hematuria N30.01 [place] [address] [place] [id number] [place] [address] 01043- 4865 Jan, Gastroesophageal reflux disease, esophagitis presence not specified K21.9 ; Post-menopausal Z78.0 and Migraine without aura and without status migrainosus, not intractable G43.009 [place] [address] [place] [address] 45978- 4089 Jan, [address] 85541- 0457 Jan, Generalized anxiety disorder F41.1 ; Major depressive disorder, recurrent episode, moderate F33.1 ; Vascular dementia without behavioral disturbance F01.50 and Unspecified psychosis F29 [place] [address] [place] [id number] [place] [address] 25676- 5337 Jan, Pneumonia of left lower lobe due to infectious organism J18.1 [facility] [address] [place] [id number] [place] [address] 59895- 2180 Jan, Migraine without aura and with status migrainosus, not intractable G43.001 [facility] [address] [place] [id number] [place] [address] 34427 -0429 Jan, Migraine without aura and without status migrainosus, not intractable G43.009 [facility] [address] [place] [id number] [place] [address] 99048- 5414 Dec, Hematoma T14.8 [place] [address] 31386- 4076 Dec, [facility] [address] [place] [id number] [place] [address] 88336 -1927 Nov, Fatigue, unspecified type R53.83 [place] [address] 03586- 0632 Nov, Scabies B86 and Coronary artery disease involving lytton coronary artery of lyt[place] 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 I25.118 [place] [address] [place] [id number] [place] [address] 98523- 4001 Nov, [place] [address] [place] [id number] [place] [address] 07159- 5004 Nov, [place] [address] [place] [id number] [place] [address] 79457- 6030 Oct, [place] [address] [place] [id number] [place] [address] 18506- 5999 Oct, Generalized anxiety disorder F41.1 and Major depressive disorder, recurrent episode, moderate F33.1 [facility] [address] [place] [id number] [place] [address] 45302- 7418 Oct, Cramp of both lower extremities R25.2 [facility] [address] 24177- 4358 Oct, Leg cramps R25.2 [facility] [address] [place] [id number] [place] [address] 22050- 2451 17 Oct, 2016 Chronic pain syndrome G89.4 [facility] [address] [place] [id number] [place] [address] 18485- 3408 17 Oct, 2016 [facility] [address] [place] [id number] [place] [address] 66570- 2510 14 Oct, 2016 [facility] [address] [place] [id number] [place] [address] 22294- 8001 11 Oct, 2016 Routine gynecological examination Z01.419 and Screening for breast cancer Z12.31 [place] [address] [place] [id number] [place] [address] 10667- 7184 28 Sep, 2016 Diarrhea R19.7 [place] [address] [place] [id number] [place] [address] 98983- 4734 Sep, Back pain M54.9 [facility] [address] [place] [id number] [place] [address] 16794- 8734 Sep, [facility] [address] [place] [id number] [place] [address] 66173- 2152 Sep, [facility] [address] [place] [id number] [place] [address] 02898 -2862 August, Xeroderma Q80.9 [facility] [address] [place] [id number] [place] [address] 21908- 2040 August, Dementia without behavioral disturbance, unspecified dementia type F03.90 [facility] [address] [place] [id number] [place] [address] 63053- 4519 August, Chronic pain syndrome G89.4 [facility] [address] [place] [id number] [place] [address] 40159- 0011 August, [facility] [address] [place] [id number] [place] [address] 26481- 6852 August, Hyperlipidemia E78.5 ; Other fatigue R53.83 and Other specified hypotension I95.89 [facility] [address] 38509 -1713 August, Dysuria R30.0 ; Other fatigue R53.83 and Other specified hypotension I95.89 [facility] [address] 78431- 2341 August, [place] [address] 97881- 9721 Jul, Pain in left knee M25.562 and Gastroenteritis K52.9 [place] [address] 99803- 6145 Jul, [place] [address] 13636- 0470 Jul, Diarrhea R19.7 [facility] [address] 34084 -0668 Jul, Spider bite, accidental or unintentional, initial encounter T63.301A [place] [address] 55605- 1576 Jul, Primary osteoarthritis of right knee M17.11 and Arthritis M19.90 [place] [address] 83735- 1036 Jul, Generalized anxiety disorder F41.1 and Major depressive disorder, recurrent episode, moderate F33.1 [place] [address] 58045- 3399 07 Jul, 2016 Type 2 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 and Temporal headache R51 [place] [address] 18481- 6914 Jul, Back pain M54.9 [place] [address] 99053- 4925 Jul, [place] [address] 24553- 5700 Jul, [facility] [address] [place] [id number] [place] [address] 64000- 8937 Jun, Nausea R11.0 [facility] [address] [place] [id number] [place] [address] 17942 -5969 Jun, Acute suppurative otitis media of both ears without spontaneous rupture of tympanic membranes, recurrence not specified H66.003 and COPD exacerbation J44.1 [facility] [address] 93069- 6803 Jun, Generalized anxiety disorder F41.1 [place] [address] 53390- 2546 16 Jun, 2016 [facility] [address] 84845 -4941 Jun, [facility] [address] 77168 -9191 Jun, Shortness of breath R06.02 and COPD exacerbation J44.1 [place] [address] [place] [id number] [place] [address] 38482- 2309 10 Jun, 2016 Eczema, unspecified type L30.9 [place] [address] [place] [id number] [place] [address] 89324- 3024 Jun, [place] [address] [place] [id number] [place] [address] 97607- 9387 May, [facility] [address] [place] [id number] [place] [address] 74902- 8612 May, Muscle cramping R25.2 [place] [address] 91215- 4598 May, [place] [address] 98811- 2149 Apr, Diarrhea R19.7 [facility] [address] [place] [address]- 9382 Apr, [place] [address] 43978- 0880 Apr, Chronic pain syndrome G89.4 [place] [address] 86918- 7432 16 Apr, 2016 Cramp of both lower extremities R25.2 and Vascular dementia without behavioral disturbance F01.50 [place] [address] 85058- 4178 Apr, Type 2 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 and Cigarette nicotine dependence without complication F17.210 [place] [address] 85614- 5226 Mar, Generalized anxiety disorder F41.1 [place] [address] 68012- 9722 Feb, Generalized anxiety disorder F41.1 and Major depressive disorder, recurrent episode, moderate F33.1 [place] [address] 79858- 0755 Feb, [facility] [address] 49977 -8663 Feb, Dysuria R30.0 and Acute cystitis with hematuria N30.01 [place] [address] [place] [id number] [place] [address] 97770- 7487 Jan, [place] [address] 26132- 0725 Jan, [place] [address] 72740- 7716 Jan, [place] [address] 21514- 8512 Jan, [facility] [address] 79624 -9050 Jan, Wasp sting, accidental or unintentional, initial encounter T63.461A [facility] [address] [place] [id number] [place] [address] 12971- 4094 Jan, Encounter for immunization Z23 [facility] [address] 26356- 0751 Jan, [facility] [address] 10151- 8030 Jan, [facility] [address] 11010- 3685 Dec, Generalized anxiety disorder F41.1 and Major depressive disorder, recurrent episode, moderate F33.1 [place] [address] 12227- 9310 Dec, Routine gynecological examination Z01.419 ; Postmenopausal Z78.0 ; Screening breast examination Z12.39 ; Osteopenia M85.80 and Breast cancer screening Z12.39 [facility] [address] [place] [id number] [place] [address] 10163- 0565 20 Dec, 2015 [facility] [address] [place] [id number] [place] [address] 35319- 0200 19 Dec, 2015 [facility] [address] [place] [id number] [place] [address] 66978- 0573 16 Dec, 2015 [facility] [address] [place] [id number] [place] [address] 58059- 7477 16 Dec, 2015 [facility] [address] [place] [id number] [place] [address] 17880- 5821 14 Dec, 2015 [facility] [address] [place] [id number] [place] [address] 90207- 8133 06 Dec, 2015 [facility] [address] 76238- 5816 Nov, [facility] [address] [place] [id number] [place] [address] 56005 -7023 Nov, Cough R05 ; Other viral agents as the cause of diseases classified elsewhere B97.89 and Acute upper respiratory infection, unspecified J06.9 [facility] [address] [address]- 2380 Nov, [facility] [address] [place] [id number] [address]- 9502 Nov, [facility] [address] [address]- 0930 Nov, [facility] [address] [place] [id number] [address]- 3887 Nov, [facility] [address] [place] [address]- 0965 Nov, [facility] [address] [place] [id number] [address]- 1450 Oct, [facility] [address] [place] [address]- 6354 Oct, [facility] [address] [address]- 0261 Oct, [facility] [address] [place] [address]- 2694 Oct, Chronic pain syndrome G89.4 [facility] [facility] [address] [address] Sep, Generalized anxiety disorder F41.1 and Major depressive disorder, recurrent episode, moderate F33.1 [facility] [address], [place] [address] Sep, [facility] [address], [place] [address] Sep, [facility] [address], [place] [address] 9299 14 Sep, 2015 Generalized anxiety disorder F41.1 [facility] [address], [place] [address] 24[address] Sep, Cramp of both lower extremities R25.2 and Cervicalgia M54.2 [facility] [id number] [place] [address] 33394- 8616 Sep, Generalized anxiety disorder F41.1 [facility] [id number] [place] [address] 19588- 0444 Sep, [facility] [id number] [place] [address] 88632 -3164 August, Rash R21 ; Itching L29.9 and Allergic response, subsequent encounter T78.40XD [facility] [id number] [place] [address] 97612- 1450 August, Primary insomnia F51.01 [facility] [id number] [place] [address] 12625 -1572 August, Rash R21 ; Itching L29.9 and Allergic response, initial encounter T78.40XA [facility] [id number] [place] [address] 95374- 2825 August, [facility] [id number] [place] [address] 82980- 0808 August, Cramp of both lower extremities R25.2 [facility] [id number] [place] [address] 02954- 7524 August, Back pain M54.9 [facility] [id number] [place] [address] 45887- 8047 August, [facility] [id number] [place] [address] 13756- 6769 August, [facility] [id number] [place] [address] 34710 -3846 August, Cramp of both lower extremities R25.2 [facility] [id number] [place] [address] 75350- 3193 August, [facility] [id number] [address] 4586 August, Syncope R55 ; Paroxysmal atrial fibrillation I48.0 ; Dementia without behavioral disturbance, unspecified dementia type F03.90 and Chronic pain syndrome G89.4 [facility] [id number] [place] [address] 16756- 8190 August, Type 2 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 and Syncope R55 [facility] [id number] [place] [address] 51483- 0696 Jul, [facility] [id number] [place] [address] 60503- 4663 Jul, [facility] [id number] [place] [address] 41473- 2189 Jul, [facility] [id number] [place] [address] 51555- 4716 Jul, [facility] [id number] [place] [address] 01759- 8202 Jul, [facility] [id number] [place] [address] 03283- 4265 Jul, UTI (urinary tract infection) N39.0 [facility] [id number] [place] [address] 45021- 6934 Jul, [facility] [id number] [place] [address] 07124- 7120 Jul, Major depressive disorder, recurrent episode, moderate F33.1 and Generalized anxiety disorder F41.1 [facility] [address], [place] [address]- 3649 Jul, Generalized anxiety disorder F41.1 [facility] [id number] [place] [address] 90666- 4813 Jul, Diarrhea R19.7 [facility] [id number] [place] [address] 81931- 4878 Jul, [facility] [address], [place] [address]- 8578 Jun, [facility] [address], [place] [address]- 6515 Jun, Eczema L30.9 [facility] [address], [place] [address]- 3537 Jun, [facility] [id number] [place] [address] 31415- 8915 Jun, COPD (chronic obstructive pulmonary disease) J44.9 [facility] [address], [place] [address]- 4054 Jun, [facility] [id number] [place] [address] 15664- 2906 Jun, Major depressive disorder, recurrent episode, moderate F33.1 and Generalized anxiety disorder F41.1 [facility] [address], [place] [address]- 9852 May, [facility] [address], [place] [address]- 1217 May, UTI (urinary tract infection) N39.0 [facility] [address], [place] [address]- 0219 May, [facility] [address], [place] [address]- 2588 May, [facility] [address], [place] [address]- 8376 May, [facility] [address], [place] [address]- 1861 May, [facility] [address], [place] [address]- 3887 Apr, Major depressive disorder, recurrent episode, moderate F33.1 and Generalized anxiety disorder F41.1 [facility] [address], [place] [address]- 0767 Apr, COPD (chronic obstructive pulmonary disease) J44.9 [facility] [id number] [place] [address] 35215- 1697 Apr, [facility] [id number] [place] [address] 75657- 0163 Apr, Atrial flutter I48.92 [facility] [id number] [place] [address] 04909- 9946 Apr, [facility] [id number] [place] [address] 33952- 2808 Apr, [facility] [id number] [place] [address] 62047- 2923 Mar, [facility] [id number] [place] [address] 91559- 6382 Mar, [facility] [id number] [place] [address] 60894- 0653 Mar, [facility] [id number] [place] [address] 08117- 7239 Mar, Hyperlipidemia E78.5 ; Type 2 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 ; Major depressive disorder, recurrent episode, moderate F33.1 and Chronic pain syndrome G89.4 [facility] [address], [place] [address]- 5669 Mar, [facility] [address], [place] [address]- 7697 14 Mar, 2015 [facility] [address], [place] [address]- 8293 Mar, [facility] [id number] [place] [address] 16009- 8279 08 Mar, 2015 [facility] [address], [place] [address]- 0673 Feb, COPD (chronic obstructive pulmonary disease) J44.9 and Back pain M54.9 [facility] [id number], [place] [address]- 8868 Feb, [facility] [address] [facility] [id number] [address]- 9115 Feb, [facility] [id number], [place] [address]- 7171 Feb, [facility] [id number] [place] [address] 60514- 8473 Feb, [facility] [id number] [place] [address] 93336- 3860 Feb, [facility] [id number] [place] [address] 64610- 2244 Feb, [facility] [id number] [place] [address] 51841- 0853 Feb, [facility] [id number] [place] [address] 69067- 5471 Feb, [facility] [id number] [place] [address] 10052- 7538 Feb, Diabetes E11.9 ; Back pain M54.9 and COPD (chronic obstructive pulmonary disease) J44.9 [facility] [address], [place] [address]- 3180 Jan, [facility] [id number] [place] [address] 84879- 6958 Jan, Major depression, recurrent F33.9 and Generalized anxiety disorder F41.1 [facility] [address], [place] [address]- 1640 Jan, Chronic pain G89.29 [facility] [address], [place] [address]- 9756 Jan, [facility] [address], [place] [address]- 3854 Jan, [facility] [address], [place] [address]- 6733 Jan, [facility] [id number] [place] [address] 51361- 9141 Jan, [facility] [id number] [place] [address] 03703- 5088 Jan, Nicotine dependence F17.200 [facility] [id number] [place] [address] 21715 2543 Jan, Nicotine dependence F17.200 and Back pain M54.9 [facility] [id number] [place] [address] 40333- 2966 Jan, [facility] [id number] [place] [address] 75655- 8280 28 Dec, 2014 [facility] [id number] [place] [address] 86802- 6476 25 Sep, 2014 Anxiety, generalized 300.02 and Major depression, recurrent 296.30 [facility] [id number] [place] [address] 22215- 8203 24 Dec, 2014 [facility] [id number] [place] [address] 07322- 6763 21 Dec, 2014 [facility] [id number] [place] [address] 92050- 8793 17 Sep, 2014 [facility] [id number] [place] [address] 39970- 9818 15 Sep, 2014 [facility] [id number] [place] [address] 98947- 6207 14 Sep, 2014 [facility] [id number] [place] [address] 63419- 2540 11 Sep, 2014 [facility] [id number] [place] [address] 71731- 0539 10 Sep, 2014 [facility] [id number] [place] [address] 30306- 8506 Dec, Skin tear 879.8 [facility] [id number] [place] [address] 17810- 0919 Dec, Routine gynecological examination V72.31 ; Breast cancer screening V76.10 and Family history of breast cancer in first degree relative V16.3 [facility] [id number] [place] [address] 84376- 6208 Dec, [facility] [id number] [place] [address] 90810- 5340 Dec, [facility] [id number] [place] [address] 54583- 4125 Nov, [facility] [id number] [place] [address] 26918- 7875 Nov, [facility] [id number] [place] [address] 90040- 5095 Nov, Poor balance 781.99 and Vascular dementia, uncomplicated 290.40 [facility] [id number] [place] [address] 09983- 1914 Nov, [facility] [id number] [place] [address] 38219- 1578 Nov, Major depression, recurrent 296.30 and Anxiety, generalized 300.02 [facility] [id number] [place] [address] 94468- 1374 Nov, [facility] [id number] [place] [address] 80413- 7444 Nov, [facility] [id number] [place] [address] 50754- 7406 Nov, [facility] [id number] [place] [address] 10707- 0965 Nov, [facility] [id number] [place] [address] 06207- 8883 Nov, Vascular dementia, uncomplicated 290.40 and Lumbago 724.2 [facility] [address], [place] [address]- 0052 Nov, [facility] [address], [place] [address]- 2773 Nov, [facility] [address], [place] [address]- 0243 Nov, [facility] [id number] [address]- 9887 Oct, [facility] [address], [place] [address]- 8852 Oct, [facility] [id number] [place] [address] 97361- 9407 Oct, [facility] [id number] [address]- 1869 Oct, COPD (chronic obstructive pulmonary disease) 496 and Hyperlipidemia 272.4 [facility] [address], [place] [address]- 2963 Oct, Major depression, recurrent 296.30 and Anxiety, generalized 300.02 [facility] [address], [place] [address]- 1282 Oct, [facility] [address], [place] [address]- 6438 Oct, [facility] [address], [place] [address]- 5848 Oct, [facility] [id number], [place] [address]- 9731 Sep, Lumbago 724.2 and Anxiety state, unspecified 300.00 [facility] [id number], [place] [address]- 8775 Sep, [facility] [address], [place] [address]- 7146 Sep, [facility] [address] [facility] [id number] [place] [address]- 1067 August, [facility] [address] 1119 August, Major depression, recurrent 296.30 ; Anxiety, generalized 300.02 and No condition on [place] II V71.09 [facility] [id number] [place] [address]- 5686 August, [facility] [address] [facility] [id number] [place] [address]- 2678 August, [facility] [id number] [place] [address]- 1541 Jul, [facility] [address] [place] [address]- 3778 Jul, [facility] [address] [place] [address]- 4515 Jul, [facility] [address] [place] [address]- 9359 Jun, [facility] [address] [place] [address]- 5826 Jun, [facility] [address] [place] [address]- 5493 Jun, [facility] [address] [place] [address]- 5263 Jun, [facility] [id number] [place] [address]- 5808 Jun, [facility] [id number] [place] [address]- 9319 Jun, [facility] [id number]- 1459 Jun, [facility] [id number] [address]- 2853 17 Jun, 2014 [facility] [place] [facility] [address] [id number] [place] [address]- 3593 13 Jun, 2014 [facility] [place] [facility] [address] [id number] [place] [address]- 1368 13 Jun, 2014 [facility] [place] [facility] [address] [id number] [place] [address]- 2592 10 Jun, 2014 [facility] [place] [facility] [address] [id number] [place] [address]- 7750 10 Jun, 2014 [facility] [place] [facility] [address] [id number] [place] [address]- 6653 Jun, [facility] [place] [facility] [address] [id number] [place] [address]- 5477 Jun, [facility] [place] [facility] [address] [facility] [id number] [place] [address]- 0785 Jun, [facility] [place] [facility] [address] [id number] [place] [address]- 9947 Jun, [facility] [place] [facility] [address] [id number] [place] [address]- 7787 May, [facility] [place] [facility] [address] [id number] [place] [address]- 2564 May, 2014 [facility] [place] [facility] [address] [id number] [place] [address]- 7143 May, 2014 [facility] [place] [facility] [address] [id number] [place] [address]- 7112 May, 2014 [facility] [place] [facility] [address] [id number] [place] [address]- 5282 May, [facility] [place] [facility] [address] [id number] [place] [address]- 2295 May, 2014 [facility] [place] [facility] [address] [facility] [id number] [place] [address]- 0223 May, [facility] [place] [facility] [address] [id number] [place] [address]- 5934 12 May, 2014 [facility] [place] [facility] [address] [id number] [place] [address]- 7756 May, 2014 [facility] [place] [facility] [address] [id number] [place] [address] 2546 May, 2014 [facility] [place] [facility] [address] [id number] [place] [address]- 5126 May, 2014 [facility] [place] [facility] [address] [id number] [place] [address]- 9423 May, 2014 [facility] [place] [facility] [address] [id number] [place] [address]- 6016 May, 2014 [facility] [place] [facility] [address] [facility] [id number] [place] [address]- 2027 May, 2014 [facility] [place] [facility] [address] [id number] [place] [address]- 8493 Apr, [facility] [place] [facility] [address] [id number] [place] [address]- 7401 Apr, [facility] [place] [facility] [address] [id number] [place] [address]- 7868 Apr, [facility] [place] [facility] [address] [facility] [id number] [place] [address]- 3561 Apr, [facility] [place] [facility] [address] [id number] [place] [address]- 3598 Apr, [facility] [place] [facility] [address] [id number] [place] [address]- 3486 Apr, [facility] [place] [facility] [address] [id number] [place] [address]- 3316 Apr, [facility] [place] [facility] [address] [id number] [place] [address]- 6726 Apr, [facility] [place] [facility] [address] [id number] [place] [address]- 9567 Apr, [facility] [place] [facility] [address] [id number] [place] [address]- 7791 Apr, [facility] [place] [facility] [address] [id number] [place] [address]- 8216 Apr, [facility] [place] [facility] [address] [id number] [place] [address]- 2523 Apr, [facility] [place] [facility] [address] [id number] [place] [address]- 1389 Mar, [facility] [place] [facility] [address] [id number] [place] [address]- 5993 31 Mar, 2014 [facility] [place] [facility] [address] [id number] [place] [address]- 3844 30 Mar, 2014 [facility] [place] [facility] [address] [id number] [place] [address]- 4254 30 Mar, 2014 [facility] [place] [facility] [address] [id number] [place] [address]- 7865 29 Mar, 2014 [facility] [place] [facility] [address] [id number] [place] [address]- 4163 29 Mar, 2014 [facility] [place] [facility] [address] [id number] [place] [address]- 1637 Mar, [facility] [place] [facility] [address] [id number] [place] [address]- 3173 19 Mar, 2014 [facility] [place] [facility] [address] [id number] [address]- 4538 15 Mar, 2014 [facility] [place] [facility] [address] [id number] [place] [address]- 1553 15 Mar, 2014 [facility] [place] [facility] [address] [id number] [place] [address]- 5123 15 Mar, 2014 [facility] [place] [facility] [address] [id number] [place] [address]- 7093 15 Mar, 2014 [facility] [place] [facility] [address] [id number] [place] [address]- 9287 15 Mar, 2014 [facility] [place] [facility] [address] [id number] [place] [address]- 1342 Mar, [facility] [place] [facility] [address] [id number] [place] [address]- [address] Mar, [facility] [place] [facility] [address] [id number] [place] [address] Mar, [facility] [place] [facility] [address] [id number] [place] [address] Mar, [facility] [place] [facility] [address] [id number] [place] [address] Mar, [facility] [place] [facility] [address] [id number] [place] [address] Mar, [facility] [place] [facility] [address] [id number] [place] [address] Mar, [facility] [place] [facility] [address] [id number] [place] [address] Feb, [facility] [place] [facility] [address] [id number] [place] [address] Feb, [facility] [place] [facility] [address] [id number] [place] [address] Feb, [facility] [place] [facility] [address] [id number] [place] [address] Feb, [facility] [place] [facility] [address] [id number] [place] [address] Feb, [facility] [place] [facility] [address] [id number] [place] [address] Feb, [facility] [place] [facility] [address] [id number] [place] [address] Feb, [facility] [place] [facility] [address] [id number] [place] [address] Feb, [facility] [place] [facility] [address] [id number] [place] [address] Feb, [facility] [place] [facility] [address] [id number] [place] [address] 164[address] Feb, [facility] [place] [facility] [address] [id number] [place] [address] Feb, [facility] [place] [facility] [address] [id number] [place] [address] Feb, [facility] [place] [facility] [address] [id number] [place] [address] Feb, [facility] [place] [facility] [address] [id number] [place] [address] Feb, [facility] [place] [facility] [address] [id number] [place] [address] Feb, [facility] [place] [facility] [address] [id number] [place] [address]- [address] Feb, [facility] [place] [facility] [address] [id number] [place] [address] Feb, [facility] [place] [facility] [address] [id number] [place] [address]- [address] Jan, [facility] [place] [facility] [address] [id number] [place] [address] Jan, [facility] [place] [facility] [address] [id number] [place] [address] Jan, [facility] [place] [facility] [address] [id number] [place] [address] Jan, [facility] [place] [facility] [address] [id number] [place] [address] Jan, [facility] [place] [facility] [address] [id number] [place] [address] Jan, [facility] [place] [facility] [address] [id number] [place] [address] 76[address] Jan, [facility] [place] [facility] [address] [id number] [place] [address] Jan, [facility] [place] [facility] [address] [id number] [place] [address]- [address] Jan, [facility] [place] [facility] [address] [id number] [place] [address] Jan, [facility] [place] [facility] [address] [id number] [place] [address] Jan, [facility] [place] [facility] [address] [id number] [place] [address] Dec, [facility] [place] [facility] [address] [id number] [place] [address] Dec, [facility] [place] [facility] [address] [id number] [place] [address] Nov, [facility] [place] [facility] [address] [id number] [place] [address] Nov, [facility] [place] [facility] [address] [id number] [place] [address] Nov, [facility] [place] [facility] [address] [id number] [place] [address] Nov, [facility] [place] [facility] [address] [id number] [place] [address]- [address] Nov, [facility] [place] [facility] [address] [id number] [place] [address] Nov, [facility] [place] [facility] [address] [id number] [place] [address] Nov, [facility] [place] [facility] [address] [id number] [place] [address]- [address] Oct, [facility] [place] [facility] [address] [id number] [place] [address]- [address] Oct, [facility] [place] [facility] [address] [id number] [place] [address]- [address] 07 Oct, 2013 [facility] [place] [facility] [address] [id number] [place] [address] 07 Oct, 2013 [facility] [place] [facility] [address] [id number] [place] [address] 30 Sep, 2013 [facility] [place] [facility] [address] [id number] [place] [address]- [address] 30 Sep, 2013 [facility] [place] [facility] [address] [id number] [place] [address] Sep, [facility] [place] [facility] [address] [id number] [place] [address] 1363 Sep, [facility] [place] [facility] [address] [id number] [place] [address] 3717 Sep, [facility] [place] [facility] [address] [id number] [place] [address] Sep, [facility] [place] [facility] [address] [id number] [place] [address] 8502 Sep, [facility] [place] [facility] [address] [id number] [place] [address]- 2391 Sep, [facility] [place] [facility] [address] [id number] [place] [address] 7840 Sep, [facility] [place] [facility] [address] [id number] [place] [address]- 9865 Sep, [facility] [place] [facility] [address] [id number] [place] [address]- 5366 Sep, [facility] [place] [facility] [address] [id number] [place] [address]- 6346 Sep, [facility] [place] [facility] [address] [id number] [place] [address]- 1537 Sep, [facility] [place] [facility] [address] [id number] [place] [address]- 2789 Sep, [facility] [address] [id number] [place] [address]- 6924 August, [facility] [place] [facility] [address] [id number] [place] [address] August, [facility] [place] [facility] [address] [id number] [place] [address] 9651 August, [facility] [place] [facility] [address] [id number] [place] [address]- 4262 August, [facility] [place] [facility] [address] [id number] [place] [address]- 9406 August, [facility] [place] [facility] [address] [id number] [place] [address]- 8668 August, [facility] [place] [facility] [address] [id number] [place] [address] 6338 August, [facility] [place] [facility] [address] [id number] [place] [address]- 3964 August, [facility] [place] [facility] [address] [id number] [place] [address]- 0613 August, [facility] [place] [facility] [address] [id number] [place] [address]- 8421 August, [facility] [place] [facility] [address] [id number] [place] [address]- 5258 August, [facility] [place] [facility] [address] [id number] [place] [address]- 6913 August, [facility] [place] [facility] [address] [id number] [place] [address]- 3538 August, [facility] [place] [facility] [address] [id number] [place] [address]- 8314 August, [facility] [place] [facility] [address] [id number] [place] [address]- 3333 August, [facility] [place] [facility] [address] [id number] [place] [address]- 0681 August, [facility] [place] [facility] [address] [id number] [place] [address]- 4210 August, [facility] [place] [facility] [address] [id number] [place] [address]- 6620 August, [facility] [place] [facility] [address] [id number] [place] [address]- 5416 August, [facility] [place] [facility] [address] [id number] [place] [address]- 4159 Jul, [facility] [place] [facility] [address] [id number] [place] [address]- 4679 Jul, [facility] [place] [facility] [address] [id number] [place] [address]- 4324 Jul, [facility] [place] [facility] [address] [id number] [place] [address]- 9001 Jul, [facility] [place] [facility] [address] [id number] [place] [address]- 4565 Jun, [facility] [place] [facility] [address] [id number] [place] [address]- 8192 Jun, [facility] [place] [facility] [address] [id number] [place] [address]- 3868 Jun, [facility] [place] [facility] [address] [id number] [place] [address]- 7062 24 Jun, 2013 [facility] [place] [facility] [address] [id number] [place] [address]- 5603 Jun, [facility] [place] [facility] [address] [id number] [place] [address]- 5587 17 Jun, 2013 [facility] [place] [facility] [address] [id number] [place] [address]- 2669 Jun, [facility] [place] [facility] [address] [id number] [place] [address]- 0219 Jun, [facility] [place] [facility] [address] [id number] [place] [address]- 3508 Jun, [facility] [place] [facility] [address] [id number] [place] [address]- 0387 Jun, [facility] [place] [facility] [address] [id number] [place] [address]- 1156 May, [facility] [place] [facility] [address] [id number] [place] [address]- 0214 May, [facility] [place] [facility] [address] [id number] [place] [address]- 0430 May, [facility] [place] [facility] [address] [id number] [place] [address]- 9510 May, [facility] [place] [facility] [address] [facility] [id number] [place] [address] 1953 May, [facility] [place] [facility] [address] [facility] [id number] [place] [address]- 1155 May, [facility] [place] [facility] [address] [facility] [id number] [place] [address]- 8258 May, [facility] [place] [facility] [address] [facility] [id number] [place] [address]- 4928 May, [facility] [place] [facility] [address] [facility] [id number] [place] [address]- 3718 May, [facility] [place] [facility] [address] [facility] [id number] [place] [address]- 9656 May, [facility] [place] [facility] [address] [facility] [id number] [place] [address]- 0649 May, [facility] [place] [facility] [address] [id number] [place] [address]- 6901 17 May, 2013 [facility] [place] [facility] [address] [facility] [id number] [place] [address]- 4876 May, [facility] [place] [facility] [address] [facility] [id number] [place] [address]- 4826 11 May, 2013 [facility] [address] [id number] [place] [address]- 5076 10 May, 2013 [facility] [place] [facility] [address] [id number] [place] [address]- 5206 07 May, 2013 [facility] [address] [id number] [place] [address]- 9856 07 May, 2013 [facility] [place] [facility] [address] [id number] [place] [address]- 8333 17 Apr, 2013 [facility] [address] [id number] [place] [address]- 5956 Apr, [facility] [address] [id number] [place] [address]- 7156 Apr, [facility] [address] [id number] [place] [address]- 7789 Apr, [facility] [address] [id number] [place] [address]- 2035 Apr, [facility] [place] [facility] [address] [facility] [id number] [place] [address]- 5992 Apr, [facility] [address] [facility] [id number] [place] [address]- 5314 Apr, [facility] [address] [id number] [place] [address]- 8422 Mar, [facility] [place] [facility] [address] [id number] [place] [address]- 9046 Mar, [facility] [place] [facility] [address] [id number] [place] [address]- 1436 Mar, [facility] [place] [facility] [address] [id number] [place] [address]- 1126 Mar, [facility] [place] [facility] [address] [id number] [place] [address]- 9977 Mar, [facility] [address] [id number] [place] [address]- 7624 Mar, [facility] [place] [facility] [address] [id number] [place] [address]- 1108 Mar, [facility] [place] [facility] [address] [id number] [place] [address] Mar, [facility] [place] [facility] [address] [id number] [place] [address]- 9358 Mar, [facility] [place] [facility] [address] [id number] [place] [address]- 6988 Mar, [facility] [place] [facility] [address] [id number] [place] [address]- 4286 Mar, [facility] [place] [facility] [address] [id number] [place] [address]- 2715 Feb, [facility] [place] [facility] [address] [id number], [place] [address]- 9327 Feb, [facility] [place] [facility] [address] [id number] [place] [address]- 6845 Feb, [facility] [place] [facility] [address] [id number], [place] [address]- 3646 Feb, [facility] [place] [facility] [address] [id number], [place] [address]- 0901 Feb, [facility] [place] [facility] [address] [id number], [place] [address]- 7044 19 Feb, 2013 [facility] [place] [facility] [address] [id number], [place] [address]- 2015 15 Feb, 2013 [facility] [place] [facility] [address] [id number], [place] [address]- 1688 14 Feb, 2013 [facility] [place] [facility] [address] [id number], [place] [address]- 6283 14 Feb, 2013 [facility] [place] [facility] [address] [id number], [place] [address]- 2968 Feb, [facility] [place] [facility] [address] [id number] [place] [address]- 7888 Feb, [facility] [place] [facility] [address] [id number], [place] [address]- 6865 Feb, [facility] [place] [facility] [address] [id number] [place] [address]- 6308 Feb, [facility] [place] [facility] [address] [id number], [place] [address]- 5039 Feb, [facility] [place] [facility] [address] [id number] [place] [address]- 2220 Feb, [facility] [place] [facility] [address] [id number] [place] [address]- 4151 Feb, [facility] [place] [facility] [address] [facility] [id number], [place] [address]- 3109 Jan, [facility] [place] [facility] [address] [id number], [place] [address]- 8487 Jan, [facility] [place] [facility] [address] [id number], [place] [address]- 3634 24 Jan, 2013 [facility] [place] [facility] [address] [facility] [id number], [place] [address]- 7071 Jan, [facility] [place] [facility] [address] [id number], [place] [address]- 4366 24 Jan, 2013 [facility] [place] [facility] [address] [id number], [place] [address]- 7828 Jan, [facility] [place] [facility] [address] [id number], [place] [address]- 4848 Jan, [facility] [place] [facility] [address] [facility] [id number], [place] [address]- 6880 Jan, [facility] [place] [facility] [address] [facility] [id number], [place] [address]- 7986 10 Jan, 2013 [facility] [place] [facility] [address] [id number] [place] [address]- 0337 27 Dec, 2012 [facility] [place] [facility] [address] [id number] [place] [address]- 5476 20 Dec, 2012 [facility] [place] [facility] [address] [id number] [place] [address] 2546 19 Dec, 2012 [facility] [place] [facility] [address] [id number] [place] [address] 2546 10 Dec, 2012 [facility] [place] [facility] [address] [id number] [place] [address] 2548 04 Dec, 2012 [facility] [place] [facility] [address] [id number] [place] [address]- 2035 03 Dec, 2012 [facility] [place] [facility] [address] [id number] [place] [address]- 8309 Nov, [facility] [place] [facility] [address] [id number] [place] [address]- 5973 Nov, [facility] [place] [facility] [address] [id number] [place] [address]- 5175 Nov, [facility] [place] [facility] [address] [id number] [place] [address]- 9462 Nov, [facility] [place] [facility] [address] [id number] [place] [address]- 0625 Nov, [facility] [place] [facility] [address] [id number] [place] [address]- 2545 Nov, [facility] [place] [facility] [address] [id number] [place] [address] 2548 Nov, [facility] [place] [facility] [address] [id number] [place] [address]- 2546 Nov, [facility] [place] [facility] [address] [id number] [place] [address]- 2543 14 Nov, 2012 [facility] [place] [facility] [address] [id number] [place] [address]- 2121 Nov, [facility] [place] [facility] [address] [id number] [place] [address]- 9201 Oct, [facility] [place] [facility] [address] [id number] [place] [address]- 6304 Oct, [facility] [place] [facility] [address] [id number] [place] [address]- 2071 Oct, [facility] [place] [facility] [address] [id number] [place] [address]- 7074 Oct, [facility] [place] [facility] [address] [id number] [place] [address]- 2870 Oct, [facility] [place] [facility] [address] [id number] [place] [address]- 8386 Oct, [facility] [place] [facility] [address] [id number] [place] [address]- 7265 Oct, [facility] [place] [facility] [address] [id number] [place] [address]- 7036 Oct, [facility] [place] [facility] [address] [id number] [place] [address]- 1627 Sep, [facility] [place] [facility] [address] [id number] [place] [address]- 8722 Sep, [facility] [place] [facility] [address] [id number], [place] [address]- 9102 Sep, [facility] [place] [facility] [address] [id number], [place] [address]- 2081 Sep, [facility] [place] [facility] [address] [id number] [place] [address]- 8171 Sep, [facility] [place] [facility] [address] [id number] [place] [address]- 0149 Sep, [facility] [place] [facility] [address] [id number] [place] [address]- 9232 Sep, [facility] [place] [facility] [address] [id number] [place] [address]- 9107 Sep, [facility] [address] [id number] [place] [address]- 8933 August, [facility] [address] [id number] [place] [address]- 2573 August, [facility] [address] [id number] [place] [address]- 6961 August, [facility] [address] [id number] [place] [address]- 9836 August, [facility] [address] [id number] [place] [address]- 9372 August, [facility] [address] [id number] [place] [address]- 4315 Jul, [facility] [address] [id number] [place] [address]- 1342 Jul, [facility] [address] [id number] [place] [address]- 4052 Jul, [facility] [address] [id number] [place] 7569 Jul, [facility] [address] [id number] [place] [address]- 3897 Jul, [facility] [address] [id number] [place] [address]- 0693 18 Jun, 2012 [facility] [address] [id number] [place] [address]- 7397 18 Jun, 2012 [facility] [place] [facility] [address] [id number] [place] [address]- 9697 15 Jun, 2012 [facility] [place] [facility] [address] [id number] [place] [address]- 1575 14 Jun, 2012 [facility] [address] [id number] [place] [address]- 0225 12 Jun, 2012 [facility] [address] [id number] [place] [address]- 0602 08 Jun, 2012 [facility] [place] [facility] [address] [id number] [place] [address]- 4877 Jun, [facility] [place] [facility] [address] [id number] [place] [address]- 5479 Jun, [facility] [place] [facility] [address] [id number] [place] [address]- 8169 Jun, [facility] [place] [facility] [address] [id number] [place] [address]- 8073 May, [facility] [place] [facility] [address] [id number] [place] [address]- 3067 May, [facility] [place] [facility] [address] [id number] [place] [address]- 7215 May, [facility] [place] [facility] [address] [id number] [place] [address]- 9595 May, [facility] [place] [facility] [address] [id number] [place] [address]- 3203 Apr, [facility] [place] [facility] [address] [id number], [place] [address]- 0225 Apr, [facility] [place] [facility] [address] [id number], [place] [address]- 7983 Apr, [facility] [place] [facility] [address] [id number], [place] [address]- 5846 Apr, [facility] [place] [facility] [address] [id number] [place] [address]- 5881 Apr, [facility] [place] [facility] [address] [id number] [place] [address]- 6241 Apr, [facility] [place] [facility] [address] [id number], [place] [address]- 4528 Apr, [facility] [place] [facility] [address] [id number], [place] [address]- 3979 Mar, [facility] [address] [place] [id number] Mar, [facility] [address] [id number] [place] [address]- 5036 Mar, [facility] [address] [id number] [place] [address]- 1006 Mar, [facility] [address] [id number] [place] [address]- 4536 Mar, [facility] [address] [id number] [place] [address]- 1012 Mar, [facility] [address] [id number] [place] [address]- 0286 Mar, [facility] [address] [id number] [place] [address]- 2986 Mar, [facility] [address] [id number] [place] [address]- 8415 Mar, [facility] [address] [id number] [place] [address]- 4698 Mar, [facility] [address] [id number] [place] [address]- 7686 Mar, [facility] [address] [id number] [place] [address]- 0606 Mar, [facility] [address] [id number], [place] [address]- 0166 Mar, [facility] [address] [id number] [place] [address]- 6176 Mar, [facility] [address] [id number] [place] [address]- 3006 Mar, [facility] [address] [id number] [place] 5676 Mar, [facility] [address] [id number] [place] [address]- 4530 Mar, [facility] [place] [facility] [address] [id number] [place] [address]- 8248 Feb, [facility] [place] [facility] [address] [id number] [place] [address]- 6096 Feb, [facility] [place] [facility] [address] [id number] [place] [address] Feb, [facility] [place] [facility] [address] [id number] [place] [address] Feb, [facility] [place] [facility] [address] [id number] [place] [address] Feb, [facility] [place] [facility] [address] [id number] [place] [address] Feb, [facility] [place] [facility] [address] [id number] [place] [address] Feb, [facility] [place] [facility] [address] [id number] [place] [address] Feb, [facility] [place] [facility] [address] [id number] [place] [address] 46[address] Feb, [facility] [place] [facility] [address] [id number] [place] [address] Feb, [facility] [place] [facility] [address] [id number] [place] [address] Feb, [facility] [place] [facility] [address] [id number] [place] [address]- [address] Feb, [facility] [place] [facility] [address] [id number] [place] [address] Feb, [facility] [place] [facility] [address] [id number] [place] [address] 67[address] Feb, [facility] [place] [facility] [address] [id number] [place] [address]- [address] Feb, [facility] [place] [facility] [address] [id number] [place] [address] 37[address] Feb, [facility] [place] [facility] [address] [id number] [place] [address] Jan, [facility] [place] [facility] [address] [id number] [place] [address]- [address] Jan, [facility] [place] [facility] [address] [id number] [place] [address]- 83[address] Jan, [facility] [place] [facility] [address] [id number] [place] [address]- 8036 Jan, [facility] [place] [facility] [address] [id number] [place] [address]- [address] Jan, [facility] [place] [facility] [address] [id number] [place] [address]- 9[address] Jan, [facility] [place] [facility] [address] [id number] [place] [address]- [address] Jan, [facility] [place] [facility] [address] [id number] [place] [address]- 6098 Jan, [facility] [place] [facility] [address] [id number] [place] [address]- 5448 Jan, [facility] [place] [facility] [address] [id number] [place] [address]- 9038 Jan, [facility] [place] [facility] [address] [id number], [place] [address]- [address] Jan, [facility] [place] [facility] [address] [id number] [place] [address]- [address] Jan, [facility] [place] [facility] [address] [id number] [place] [address]- 3315 Jan, [facility] [place] [facility] [address] [id number] [address] Jan, [facility] [place] [facility] [address] [id number], [place] [address] 08 Jan, 2012 [facility] [place] [facility] [address] [id number] [place] [address]- 3747 05 Jan, 2012 [facility] [place] [facility] [address] [id number] [place] [address]- 2066 04 Jan, 2012 [facility] [place] [facility] [address] [id number] [place] [address]- 2466 21 Dec, 2011 [facility] [place] [facility] [address] [id number] [place] [address] 2541 20 Dec, 2011 [facility] [place] [facility] [address] [id number] [place] [address]489 18 Dec, 2011 [facility] [place] [facility] [address] [id number] [place] [address]- 2371 18 Dec, 2011 [facility] [place] [facility] [address] [id number] [place] [address] 10 Dec, 2011 [facility] [place] [facility] [address] [id number] [place] [address]- 4497 10 Dec, 2011 [facility] [place] [facility] [address] [id number] [place] [address]- 8372 10 Dec, 2011 [facility] [place] [facility] [address] [id number] [place] [address]- 9826 07 Dec, 2011 [facility] [place] [facility] [address] [id number] [place] [address]- 4080 30 Nov, 2011 [facility] [place] [facility] [address] [id number] [place] [address]- 44[address] Nov, [facility] [place] [facility] [address] [id number] [place] [address]- 7666 Nov, [facility] [place] [facility] [address] [id number] [place] [address]- 6032 Nov, [facility] [place] [facility] [address] [id number] [place] [address]- 6692 Nov, [facility] [place] [facility] [address] [id number] [place] [address]- 7693 16 Nov, 2011 [facility] [place] [facility] [address] [id number] [place] [address]- 9867 Oct, [facility] [place] [facility] [address] [id number] [place] [address]- 1426 Oct, [facility] [place] [facility] [address] [id number] [place] [address]- 9676 Oct, [facility] [place] [facility] [address] [id number] [place] [address]- 66[address] Oct, [facility] [place] [facility] [address] [id number] [place] [address]- 7971 Oct, [facility] [place] [facility] [address] [id number] [place] [address]- 6449 Oct, [facility] [place] [facility] [address] [id number] [place] [address]- 7541 Oct, [facility] [place] [facility] [address] [id number] [place] [address]- 6415 Sep, [facility] [place] [facility] [address] [id number] [place] [address]- 8781 Sep, [facility] [place] [facility] [address] [id number] [place] [address]- 44[address] Sep, [facility] [place] [facility] [address] [id number] [place] [address]- 6329 Sep, [facility] [place] [facility] [address] [id number] [place] [address]- 2545 19 Sep, 2011 [facility] [place] [facility] [address] [id number] [place] [address]- 2203 15 Sep, 2011 [facility] [place] [facility] [address] [id number] [place] [address]- 2546 14 Sep, 2011 [facility] [place] [facility] [address] [id number] [place] [address]- 4448 Sep, [facility] [address] [id number] [place] [address]- 2011 Sep, [facility] [place] [facility] [address] [id number] [place] [address]- 1808 Sep, [facility] [place] [facility] [address] [id number] [place] [address]- 4364 August, [facility] [place] [facility] [address] [id number] [place] [address]- 3073 August, [facility] [place] [facility] [address] [id number] [place] [address]- 7250 August, [facility] [place] [facility] [address] [id number] [place] [address]- 6770 August, [facility] [place] [facility] [address] [id number] [place] [address]- 9183 August, [facility] [place] [facility] [address] [id number] [place] [address]- 6064 Jul, [facility] [place] [facility] [address] [id number] [place] [address]- 9952 Jul, [facility] [place] [facility] [address] [id number] [place] [address]- 0288 Jul, [facility] [place] [facility] [address] [id number] [place] [address]- 4539 Jul, [facility] [place] [facility] [address] [id number] [place] [address]- 1653 Jul, [facility] [place] [facility] [address] [address] [id number] [place] [address] Jul, [facility] [place] [facility] [address] [id number] [place] [address] Jul, [facility] [place] [facility] [address] [id number] [place] [address] Jun, [facility] [place] [facility] [address] [id number] [place] [address] Jun, [facility] [address] [id number] [place] [address] Jun, [facility] [place] [facility] [address] [id number] [place] [address] Jun, [facility] [place] [facility] [address] [id number] [place] [address] Jun, [facility] [place] [facility] [address] [id number] [place] [address] May, [facility] [place] [facility] [address] [id number] [place] [address] May, [facility] [place] [facility] [address] [id number] [place] [address] May, [facility] [address] [id number] [place] [address] May, [facility] [place] [facility] [address] [id number] [place] [address] May, [facility] [place] [facility] [address] [id number] [place] [address] May, [facility] [address] [id number] [place] [address] Apr, [facility] [place] [facility] [address] [id number] [place] [address] Mar, [facility] [place] [facility] [address] [id number] [place] [address] Feb, [facility] [place] [facility] [address] [id number] [place] [address] Feb, [facility] [place] [facility] [address] [id number] [place] [address] Feb, [facility] [place] [facility] [address] [id number] [place] [address] Feb, [facility] [place] [facility] [address] [id number] [place] [address] 31 Jan, 2011 [facility] [place] [facility] [address] [id number] [place] [address] Jan, [facility] [place] [facility] [address] [id number] [place] [address] Jan, [facility] [place] [facility] [address] [id number] [place] [address] 24 Jan, 2011 [facility] [place] [facility] [address] [id number] [place] [address] 14 Jan, 2011 [facility] [place] [facility] [address] [id number] [place] [address] Dec, [facility] [place] [facility] [address] [id number] [place] [address] Oct, [facility] [place] [facility] [address] [id number] [place] [address] August, [facility] [place] [facility] [address] [id number] [place] [address] 29 Mar, 2010 [facility] [place] [facility] [address] [id number], [place] [address] 27 Mar, 2010 [facility] [place] [facility] [address] [id number], [place] [address] 16 Mar, 2010 [facility] [place] [facility] [address] [id number], [place] [address] 15 Mar, 2010 [facility] [place] [facility] [address] [id number] [place] [address] 15 Mar, 2010 [facility] [place] [facility] [address] [id number], [place] [address] 08 Mar, 2010 [facility] [place] [facility] [address] [facility] [id number], [place] [address] 03 Mar, 2010 [facility] [place] [facility] [address] [id number], [place] [address] Feb, [facility] [place] [facility] [address] [id number] [place] [address] 24 Feb, 2010 [facility] [place] [facility] [address] [id number], [place] [address] 15 Feb, 2010 [facility] [place] [facility] [address] [facility] [id number] [place] [address] 19 Jan, 2010 [facility] [place] [facility] [address] [id number], [place] [address] 18 Jan, 2010 [facility] [place] [facility] [address] [id number] [place] [address] 18 Jan, 2010 [facility] [place] [facility] [address] [facility] [id number] [place] [address] Nov, [facility] [place] [facility] [address] [facility] [id number], [place] [address] Sep, [facility] [place] [facility] [address] [facility] [id number] [place] [address] August, [facility] [place] [facility] [address] [facility] [id number], [place] [address] 30 Mar, 2009 [facility] [place] [facility] [address] [facility] [id number], [place] [address] Mar, [facility] [place] [facility] [address] [facility] [id number], [place] [address] 17 Feb, 2009 [facility] [place] [facility] [address] [facility] [id number], [place] [address] 10 Feb, 2009 [facility] [place] [facility] [address] [facility] [id number], [place] [address] 10 Feb, 2009 [facility] [place] [facility] [address] [facility] [id number], [place] [address] 10 Feb, 2009 [facility] [place] [facility] [address] [facility] [id number], [place] [address] 06 Feb, 2009 [facility] [place] [facility] [address] [id number], [place] [address] Jan, [facility] [id number], [place] [address] Jan, [facility] [id number], [place] [address] Jan, [facility] [id number], [place] [address] Jan, [facility] [id number], [place] [address] Nov, [facility] [id number] [place] [address] Sep, [facility] [id number], [place] [address] August, [facility] [id number] [place] [address] Jul, [facility] [address] [id number], [place] [address] May, IMMUNIZATIONS No Known Immunizations SOCIAL HISTORY Never Assessed REASON FOR VISIT Medication question PLAN OF CARE VITAL SIGNS MEDICATIONS Unknown [...] Medical History torn ligaments in right ankle Medical History 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
[2017-09-11 09:11] VITALS: BP 123/75
--- OUTSIDE RECORDS SUMMARY | 2017-09-11 09:14 | XMS REPORT ---
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 Active 86787579 Problem Colon polyp K63.5 Active 44206469 Problem Bilateral low back pain without sciatica M54.5 Active 903909850 Problem Screening breast examination Z12.39 Active 880704899 Problem Postmenopausal Z78.0 Active 00762813 Problem Osteopenia M85.80 Active 171802874 Problem Cigarette nicotine dependence without complication F17.210 Active 59983551 Problem Type 2 diabetes mellitus with diabetic peripheral angiopathy without gangrene E11.51 Active 438541866 Problem Vascular dementia without behavioral disturbance F01.50 Active [id number] Problem Unspecified atherosclerosis of [place] arteries of extremities, unspecified extremity I70.209 Active 504177810105148 Problem Arthritis M19.90 Active 0721919 Problem Chronic atrial fibrillation I48.2 Active 164598698 Problem Chronic obstructive pulmonary disease with acute lower respiratory infection J44.0 Active 998719914 Problem Other chronic pancreatitis K86.1 Active 737286769 Problem Stress incontinence of urine N39.3 Active 09642726 Problem Controlled type 2 diabetes mellitus without complication, without long -term current use of insulin E11.9 Active 352852988 Problem Unspecified psychosis F29 Active 17359671 Problem Xeroderma Q80.9 Active 08561501 Problem COPD (chronic obstructive pulmonary disease) J44.9 Active 82888729 Problem Dementia without behavioral disturbance, unspecified dementia type F03.90 Active 73454703 Problem Gastroparesis K31.84 Active 178490520 Problem Type 2 diabetes mellitus with diabetic neuropathy, without long-term current use of insulin E11.40 Active 21274490 Problem Osteoporosis M81.0 Active 72734020 Problem Atherosclerosis of [place] artery of both lower extremities with intermittent claudication I70.213 Active 195615548087673 Problem Hyperlipidemia E78.5 Active 10983394 Problem Diabetic polyneuropathy associated with type 2 diabetes mellitus E11.42 Active 57377827 Problem Essential tremor G25.0 Active 77224939 Problem 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.118 Active 8207618708770 Problem Generalized anxiety disorder F41.1 Active 569878740 Problem Gastroesophageal reflux disease, esophagitis presence not specified K21.9 Active 609662888 Problem Coronary artery disease involving white [place] coronary artery of white earth 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 I25.118 Active 7263964619496 Problem Postconcussion syndrome F07.81 Active 70464030 Problem Chronic pain syndrome G89.4 Active 681163701 Problem Migraine without aura and without status migrainosus, not intractable G43.009 Active 516705532 Problem Paroxysmal atrial fibrillation I48.0 Active 508743614 Problem Migraine without aura and with status migrainosus, not intractable G43.001 Active 945043700 Problem Cervicalgia M54.2 Active 7913142302949 Problem Acute exacerbation of chronic obstructive pulmonary disease (COPD) J44.1 Active 502470252 Problem Major depressive disorder, recurrent episode, moderate F33.1 Active 200996141 Problem Crohn''s disease without complication, unspecified gastrointestinal tract location K50.90 Active 62355893 Problem Chronic fatigue R53.82 Active 28539427 Problem Bipolar affective disorder, currently depressed, moderate F31.32 Active 185022241 ALLERGIES No Information ENCOUNTERS Encounter Location Date Diagnosis [facility] [id number] [address] Nov, [facility] [address] [address] Oct, [facility] [id number] [address] Sep, [facility] [id number] [address] August, [facility] [address] [address] August, [facility] [id number] [place] [address] 04112- 2049 August, Type 2 diabetes mellitus with diabetic neuropathy, without long-term current use of insulin E11.40 and Sprain of right ankle, unspecified ligament, initial encounter S93.401A [facility] [id number] [place] [address] 76938- 0141 August, [facility] [id number] [place] [address] 48652- 4760 August, [facility] [id number] [place] [address] 39555- 9136 August, [facility] [id number] [place] [address] 92225- 3720 August, Gastroesophageal reflux disease, esophagitis presence not specified K21.9 [facility] [id number] [place] [address] 02074- 0121 August, [facility] [id number] [place] [address] 75042- 1597 August, [facility] [id number] [place] [address] 90256- 4506 August, [facility] [id number] [place] [address] 24489- 1351 August, Type 2 diabetes mellitus with diabetic neuropathy, without long-term current use of insulin E11.40 and Elevated liver enzymes R74.8 [facility] [address] [address] 67[address] Jul, [facility] [id number] [place] [address] 72790- 4804 Jul, Cough R05 [facility] [id number] [place] [address] 07844- 9544 Jul, [facility] [address] 00502- 9022 Jul, [facility] [address] 39055- 2913 Jul, Bipolar affective disorder, currently depressed, moderate F31.32 ; Vascular dementia without behavioral disturbance F01.50 and Generalized anxiety disorder F41.1 [facility] [address] 70884- 0436 Jul, [facility] [address] 93263- 2592 Jul, Type 2 diabetes mellitus with diabetic neuropathy, without long-term current use of insulin E11.40 and Elevated liver enzymes R74.8 [facility] [address] 29713- 5508 Jul, [facility] [address] 37717- 0651 Jul, [facility] [address] 95341- 5604 Jul, [facility] [address] 71745- 9097 Jul, Post-menopausal Z78.0 [facility] [address] 81150- 1879 Jul, Stress incontinence of urine N39.3 [facility] [id number] [place] [address] 71313- 4408 Jul, [facility] [id number] [place] [address] 61407- 4989 Jul, [facility] [address] 42586- 3236 Jul, Stress incontinence of urine N39.3 and Cough R05 [facility] [id number] [place] [address] 63226- 0501 Jul, [facility] [address] [place] [address] 8533 Jul, [facility] [id number] [place] [address] 89727- 9812 Jul, [facility] [id number] [place] [address] Jul, Gastroesophageal reflux disease, esophagitis presence not specified K21.9 [facility] [id number] [place] [address] 23828- 2567 Jun, Diabetic polyneuropathy associated with type 2 diabetes mellitus E11.42 [facility] [id number] [place] [address]183 Jun, Diabetic polyneuropathy associated with type 2 diabetes mellitus E11.42 ; Coronary artery disease involving [place] coronary artery of white [place] 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 I25.118 and Paroxysmal atrial fibrillation I48.0 [facility] [id number] [place] [address] 31970- 2094 Jun, [facility] [id number] [place] [address] 93019- 9281 Jun, [facility] [id number] [place] [address] 11599 254 Jun, Gastroenteritis K52.9 [facility] [id number] [place] [address] 91307 2548 Jun, Gastroenteritis K52.9 [facility] [id number] [place] [address] 12535- 1996 Jun, [facility] [id number] [place] [address] 80991- 2859 Jun, [facility] [id number] [place] [address] 55657- 9131 Jun, Sprain of right ankle, unspecified ligament, initial encounter S93.401A ; Type 2 diabetes mellitus with diabetic neuropathy, without long-term current use of insulin E11.40 ; Atherosclerosis of [place] artery of both lower extremities with intermittent claudication I70.213 ; 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.118 ; Chronic atrial fibrillation I48.2 and Crohn''s disease without complication, unspecified gastrointestinal tract location K50.90 [facility] [id number] [place] [address] 69408 -6393 17 Jun, 2017 Cough R05 and Chronic obstructive pulmonary disease with acute lower respiratory infection J44.0 [facility] [id number] [place] [address] 18730- 8163 Jun, [place] [id number] [place] [address] 86913- 8302 Jun, Coughing R05 ; Unspecified atherosclerosis of [place] arteries of extremities, unspecified extremity I70.209 ; Type 2 diabetes mellitus with diabetic peripheral angiopathy without gangrene E11.51 ; Crohn''s disease without complication, unspecified gastrointestinal tract location K50.90 ; Other chronic pancreatitis K86.1 and Chronic atrial fibrillation I48.2 [facility] [id number] [place] [address] 56674 -4217 Jun, [place] [id number] [place] [address] 13720- 2663 Jun, Bipolar affective disorder, currently depressed, moderate F31.32 ; Vascular dementia without behavioral disturbance F01.50 and Generalized anxiety disorder F41.1 [place] [id number] [place] [address] 33124- 3091 May, Generalized anxiety disorder F41.1 [place] [id number] [place] [address] 22723- 2874 May, [place] [id number] [place] [address] 59738- 3160 May, [place] [id number] [place] [address] 57967- 5224 15 May, 2017 Coughing R05 [place] [id number] [place] [address] 49646- 0588 May, [place] [id number] [place] [address] 81010- 9213 May, Bipolar affective disorder, currently depressed, moderate F31.32 ; Vascular dementia without behavioral disturbance F01.50 and Generalized anxiety disorder F41.1 [place] [id number] [place] [address] 64099- 8055 Apr, Generalized anxiety disorder F41.1 [place] [id number] [place] [address] 99336- 7422 Apr, [place] [id number] [place] [address] 71740- 9472 Apr, Vascular dementia without behavioral disturbance F01.50 ; Generalized anxiety disorder F41.1 and Bipolar affective disorder, currently depressed, moderate F31.32 [place] [id number] [place] [address] 33777- 4825 Apr, Generalized anxiety disorder F41.1 [facility] [id number] [place] [address] 11231 -5419 Apr, Cough R05 and Acute exacerbation of chronic obstructive pulmonary disease (COPD) J44.1 [place] [id number] [place] [address] 65867- 5316 Apr, [facility] [id number] [place] [address] 87494 -3052 Mar, Cough R05 and Cigarette nicotine dependence without complication F17.210 [place] [id number] [place] [address] 84225- 9165 Mar, [place] [address] 45877- 8390 Feb, Generalized anxiety disorder F41.1 ; Major depressive disorder, recurrent episode, moderate F33.1 ; Vascular dementia without behavioral disturbance F01.50 and Unspecified psychosis F29 [place] [address] 22787- 9754 Feb, [place] [address] [place] [address] 17579- 5946 Feb, [place] [id number] [place] [address] 09221- 8302 Feb, Generalized anxiety disorder F41.1 [place] [id number] [place] [address] 27707- 6917 Feb, Generalized anxiety disorder F41.1 [place] [id number] [place] [address] 43143- 5982 Feb, Dizziness R42 ; Chronic fatigue R53.82 ; Postconcussion syndrome F07.81 ; Fall, initial encounter W19.XXXA and Disorientation R41.0 [place] [id number] [place] [address] 03031- 1766 Feb, Postconcussion syndrome F07.81 ; Injury of head, initial encounter S09.90XA ; Fall, initial encounter W19.XXXA ; Disorientation R41.0 and Acute cystitis with hematuria N30.01 [place] [id number] [place] [address] 01849- 6350 Jan, Gastroesophageal reflux disease, esophagitis presence not specified K21.9 ; Post-menopausal Z78.0 and Migraine without aura and without status migrainosus, not intractable G43.009 [place] [id number] [place] [address] 24248- 2672 Jan, [place] [id number] [place] [address] 63826- 1162 Jan, Generalized anxiety disorder F41.1 ; Major depressive disorder, recurrent episode, moderate F33.1 ; Vascular dementia without behavioral disturbance F01.50 and Unspecified psychosis F29 [place] [address] [place] [address] 89816- 8971 Jan, Pneumonia of left lower lobe due to infectious organism J18.1 [place] [id number] [place] [address] 99227- 6986 Jan, Migraine without aura and with status migrainosus, not intractable G43.001 [facility] [id number] [place] [address] 31103 -9367 04 Jan, 2017 Migraine without aura and without status migrainosus, not intractable G43.009 [facility] [id number] [place] [address] 74313- 0353 19 Dec, 2016 Hematoma T14.8 [facility] [id number] [place] [address] 66530- 4286 12 Dec, 2016 [facility] [address] 36359 -4497 Nov, Fatigue, unspecified type R53.83 [place] [id number] [place] [address] 54854- 4224 Nov, Scabies B86 and Coronary artery disease involving white [place] coronary artery of white [place] 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 I25.118 [place] [id number] [place] [address] 64917- 7202 Nov, [place] [address] 03516- 6786 Nov, [place] [id number] [place] [address] 95353- 7142 Oct, [place] [id number] [place] [address] 14434- 7274 Oct, Generalized anxiety disorder F41.1 and Major depressive disorder, recurrent episode, moderate F33.1 [place] [id number] [place] [address] 02548- 3902 Oct, Cramp of both lower extremities R25.2 [place] [id number] [place] [address] 15714- 4969 Oct, Leg cramps R25.2 [place] [address] 29297- 2117 Oct, Chronic pain syndrome G89.4 [facility] [id number] [place] [address] 38895- 5650 17 Oct, 2016 [facility] [id number] [place] [address] 58813- 5195 14 Oct, 2016 [facility] [id number] [place] [address] 67662- 6665 Oct, Routine gynecological examination Z01.419 and Screening for breast cancer Z12.31 [place] [id number] [place] [address] 78354- 9910 28 Sep, 2016 Diarrhea R19.7 [place] [id number] [place] [address] 00458- 3476 26 Sep, 2016 Back pain M54.9 [place] [id number] [place] [address] 34446- 4244 Sep, [facility] [id number] [place] [address] 20568- 0364 Sep, [facility] [id number] [place] [address] 13590 -2535 August, Xeroderma Q80.9 [facility] [id number] [place] [address] 42242- 7576 August, Dementia without behavioral disturbance, unspecified dementia type F03.90 [facility] [id number] [place] [address] 93977- 3651 August, Chronic pain syndrome G89.4 [facility] [id number] [place] [address] 94879- 4288 August, [place] [id number] [place] [address] 63204- 6299 August, Hyperlipidemia E78.5 ; Other fatigue R53.83 and Other specified hypotension I95.89 [facility] [id number] [place] [address] 77162 -9283 August, Dysuria R30.0 ; Other fatigue R53.83 and Other specified hypotension I95.89 [facility] [address] 10809- 6688 August, [place] [address] 09040- 9328 Jul, Pain in left knee M25.562 and Gastroenteritis K52.9 [place] [address] 34261- 7827 Jul, [facility] [address] 23419- 1145 Jul, Diarrhea R19.7 [facility] [address] 37114 -3267 Jul, Spider bite, accidental or unintentional, initial encounter T63.301A [place] [address] 57561- 0963 Jul, Primary osteoarthritis of right knee M17.11 and Arthritis M19.90 [place] [address] 18237- 3272 Jul, Generalized anxiety disorder F41.1 and Major depressive disorder, recurrent episode, moderate F33.1 [place] [address] 06628- 1445 Jul, Type 2 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 and Temporal headache R51 [place] [address] 67754- 5713 Jul, Back pain M54.9 [place] [address] 01710- 9180 Jul, [place] [address] 68817- 4863 Jul, [facility] [address] 25887- 5348 Jun, Nausea R11.0 [facility] [id number] [place] [address] 52424 -8456 Jun, Acute suppurative otitis media of both ears without spontaneous rupture of tympanic membranes, recurrence not specified H66.003 and COPD exacerbation J44.1 [facility] [address] 33260- 4531 Jun, Generalized anxiety disorder F41.1 [facility] [address] 25495- 4548 Jun, [facility] [address] 95487 -3839 Jun, [facility] [address] 07934 -9362 Jun, Shortness of breath R06.02 and COPD exacerbation J44.1 [place] [address] 24864- 7391 Jun, Eczema, unspecified type L30.9 [place] [address] 37655- 0647 Jun, [place] [address] 32266- 1061 May, [place] [address] 33588- 8945 May, Muscle cramping R25.2 [place] [address] 15325- 6395 May, [place] [address] 22426- 5241 Apr, Diarrhea R19.7 [place] [address] 57729- 1781 Apr, [place] [address] 95755- 5142 Apr, Chronic pain syndrome G89.4 [place] [id number] [place] [address] 35661- 9964 16 Apr, 2016 Cramp of both lower extremities R25.2 and Vascular dementia without behavioral disturbance F01.50 [place] [address] 64904- 0745 Apr, Type 2 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 and Cigarette nicotine dependence without complication F17.210 [place] [address] 77055- 0371 Mar, Generalized anxiety disorder F41.1 [place] [address] 14279- 9273 Feb, Generalized anxiety disorder F41.1 and Major depressive disorder, recurrent episode, moderate F33.1 [place] [address] 78941- 5923 Feb, [facility] [address] 84478 -1310 Feb, Dysuria R30.0 and Acute cystitis with hematuria N30.01 [place] [address] 01483- 7536 Jan, [place] [address] 87842- 5396 Jan, [place] [address] 45568- 7663 Jan, [place] [address] 48546- 2131 Jan, [facility] [address] 93999 -0757 Jan, Wasp sting, accidental or unintentional, initial encounter T63.461A [place] [address] 51143- 8780 Jan, Encounter for immunization Z23 [facility] [address] [place] [address] 75946- 4394 Jan, [facility] [id number] [place] [address] 36276- 2118 Jan, [facility] [id number] [place] [address] 12168- 2466 Dec, Generalized anxiety disorder F41.1 and Major depressive disorder, recurrent episode, moderate F33.1 [facility] [id number] [place] [address] 67535- 8809 21 Dec, 2015 Routine gynecological examination Z01.419 ; Postmenopausal Z78.0 ; Screening breast examination Z12.39 ; Osteopenia M85.80 and Breast cancer screening Z12.39 [facility] [id number] [place] [address] 62850- 9831 20 Dec, 2015 [facility] [id number] [place] [address] 36343- 1882 19 Dec, 2015 [facility] [id number] [place] [address] 79141- 5525 16 Dec, 2015 [facility] [id number] [place] [address] 12992- 7996 16 Dec, 2015 [facility] [id number] [place] [address] [phone] 14 Dec, 2015 [facility] [id number] [place] [address] [phone] 06 Dec, 2015 [facility] [id number] [place] [address] [phone] Nov, [facility] [id number] [place] [address] [phone] Nov, Cough R05 ; Other viral agents as the cause of diseases classified elsewhere B97.89 and Acute upper respiratory infection, unspecified J06.9 [facility] [id number] [place] [address] [phone] Nov, [facility] [address] [address] 1798 Nov, [facility] [address] [address] 3285 Nov, [facility] [address] [address] 0442 Nov, [facility] [id number] [place] [address] 52672- 6603 Nov, [facility] [id number] [address] 9375 Oct, [facility] [id number] [place] [address] 58751- 6343 Oct, [facility] [id number] [place] [address] 38053- 4291 Oct, [facility] [id number] [place] [address] 37064- 8406 Oct, Chronic pain syndrome G89.4 [facility] [id number] [place] [address] 04093- 2764 Sep, Generalized anxiety disorder F41.1 and Major depressive disorder, recurrent episode, moderate F33.1 [facility] [address] [address] 7216 Sep, [facility] [address] [address]- 1203 Sep, [facility] [address] [address] 1513 14 Sep, 2015 Generalized anxiety disorder F41.1 [facility] [address] [address] 4101 13 Sep, 2015 Cramp of both lower extremities R25.2 and Cervicalgia M54.2 [facility] [address] [address]- 4573 Sep, Generalized anxiety disorder F41.1 [facility] [id number] [place] [address] 23166- 3305 Sep, [facility] [id number] [place] [address] 85885 -9216 August, Rash R21 ; Itching L29.9 and Allergic response, subsequent encounter T78.40XD [facility] [address] [address]- 7220 August, Primary insomnia F51.01 [facility] [id number] [place] [address] 74480 -6174 August, Rash R21 ; Itching L29.9 and Allergic response, initial encounter T78.40XA [place] [id number] [place] [address] 87145- 9570 August, [place] [address] 92319- 0306 August, Cramp of both lower extremities R25.2 [place] [address] 19455- 6589 August, Back pain M54.9 [place] [id number] [place] [address] 76519- 5627 August, [place] [id number] [place] [address] 72387- 3135 August, [facility] [id number] [place] [address] 36220 -4221 August, Cramp of both lower extremities R25.2 [place] [address] 26435- 3871 August, [facility] [id number] [place] [address] 97745- 2666 August, Syncope R55 ; Paroxysmal atrial fibrillation I48.0 ; Dementia without behavioral disturbance, unspecified dementia type F03.90 and Chronic pain syndrome G89.4 [facility] [address] [address]- 6799 August, Type 2 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 and Syncope R55 [facility] [address] [address]- 5156 Jul, [facility] [id number] [place] [address] 34515- 0004 Jul, [facility] [id number] [place] [address] 98134- 6212 Jul, [facility] [id number] [place] [address] 01804- 0034 Jul, [facility] [id number] [place] [address] 44107- 9386 Jul, [facility] [id number] [place] [address] 55704- 0840 Jul, UTI (urinary tract infection) N39.0 [facility] [address] [address]- 5245 Jul, [facility] [id number] [place] [address] 17331- 5339 Jul, Major depressive disorder, recurrent episode, moderate F33.1 and Generalized anxiety disorder F41.1 [facility] [address] [address]- 7567 Jul, Generalized anxiety disorder F41.1 [facility] [address] [address]- 6264 Jul, Diarrhea R19.7 [facility] [id number] [place] [address] 09106- 6319 Jul, [facility] [address] [address]- 2742 Jun, [facility] [id number] [address]- 1596 Jun, Eczema L30.9 [facility] [address] [address]- 9366 Jun, [facility] [address] [address]- 0086 Jun, COPD (chronic obstructive pulmonary disease) J44.9 [facility] [id number] [place] [address] 71484- 6276 Jun, [facility] [address] [address]- 8351 Jun, Major depressive disorder, recurrent episode, moderate F33.1 and Generalized anxiety disorder F41.1 [facility] [address] [address]- 6515 May, [facility] [id number] [place] [address] 97678- 2209 May, UTI (urinary tract infection) N39.0 [facility] [address] [address]- 4151 May, [facility] [address] [address]- 5436 May, [facility] [address] [address]- 0456 May, [facility] [address] [address]- 5068 May, [facility] [address] [address]- 3961 Apr, Major depressive disorder, recurrent episode, moderate F33.1 and Generalized anxiety disorder F41.1 [facility] [address] [address]- 9600 Apr, COPD (chronic obstructive pulmonary disease) J44.9 [facility] [id number] [place] [address] 70446- 7742 Apr, [facility] [id number] [place] [address] 60747- 1692 Apr, Atrial flutter I48.92 [facility] [id number] [place] [address] 85738- 7628 Apr, [facility] [id number] [place] [address] 38863- 3796 Apr, [facility] [id number] [place] [address] 34082- 7965 Mar, [facility] [id number] [place] [address] 97086- 2431 Mar, [facility] [id number] [place] [address] 38399- 8995 Mar, [facility] [id number] [place] [address] 26661- 6977 Mar, Hyperlipidemia E78.5 ; Type 2 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 ; Major depressive disorder, recurrent episode, moderate F33.1 and Chronic pain syndrome G89.4 [facility] [id number] [place] [address] 51748- 5780 16 Mar, 2015 [facility] [id number] [place] [address] 23379- 4563 Mar, [facility] [id number] [place] [address] 48874- 1108 Mar, [facility] [id number] [place] [address] 45072- 7436 Mar, [facility] [id number] [place] [address] 79862- 1512 30 Feb, 2015 COPD (chronic obstructive pulmonary disease) J44.9 and Back pain M54.9 [facility] [id number] [place] [address] 10045- 5734 Feb, [facility] [address] [address]- 6396 Feb, [facility] [address] [address]- 2745 Feb, [facility] [address] [address]- 6617 Feb, [facility] [id number] [place] [address] 76929- 5862 Feb, [facility] [id number] [place] [address] 97161- 0922 Feb, [facility] [id number] [place] [address] 94371- 1111 Feb, [facility] [id number] [place] [address] 57870- 8413 Feb, [facility] [id number] [place] [address] 86823- 9193 Feb, Diabetes E11.9 ; Back pain M54.9 and COPD (chronic obstructive pulmonary disease) J44.9 [facility] [id number] [place] [address] 08699- 8274 Jan, [facility] [address] [address]- 2187 Jan, Major depression, recurrent F33.9 and Generalized anxiety disorder F41.1 [facility] [address] [address]- 8298 Jan, Chronic pain G89.29 [facility] [address] [address]- 5039 Jan, [facility] [address] [address]- 8681 Jan, [facility] [address] [address]- 2712 Jan, [facility] [id number] [place] [address] 00750- 0495 Jan, [facility] [id number] [place] [address] 15665- 4675 Jan, Nicotine dependence F17.200 [facility] [id number] [place] [address] 65427- 2799 Jan, Nicotine dependence F17.200 and Back pain M54.9 [facility] [id number] [place] [address] 04899- 2841 Jan, [facility] [id number] [place] [address] 72738- 7231 28 Dec, 2014 [facility] [id number] [place] [address] 94251- 7261 25 Dec, 2014 Anxiety, generalized 300.02 and Major depression, recurrent 296.30 [facility] [id number] [place] [address] 75401- 7923 24 Dec, 2014 [facility] [id number] [place] [address] 94687- 8011 21 Dec, 2014 [facility] [id number] [place] [address] 80870- 5150 17 Dec, 2014 [facility] [id number] [place] [address] 11358- 4337 15 Dec, 2014 [facility] [id number] [place] [address] 59647- 0874 14 Dec, 2014 [facility] [id number] [place] [address] 48764- 2545 11 Dec, 2014 [facility] [id number] [place] [address] 93680- 2486 10 Dec, 2014 [facility] [id number] [place] [address] 86920- 1784 08 Dec, 2014 Skin tear 879.8 [facility] [id number] [place] [address] 30456- 5752 08 Dec, 2014 Routine gynecological examination V72.31 ; Breast cancer screening V76.10 and Family history of breast cancer in first degree relative V16.3 [facility] [id number] [place] [address] 94589- 6987 Dec, [facility] [id number] [place] [address] 57307- 8482 Dec, [facility] [address] 49320- 7893 Nov, [facility] [id number] [place] [address] 95751- 5687 Nov, [facility] [address] 11473- 8530 Nov, Poor balance 781.99 and Vascular dementia, uncomplicated 290.40 [facility] [address] 94518- 7410 Nov, [facility] [id number] [place] [address] 57288- 5639 Nov, Major depression, recurrent 296.30 and Anxiety, generalized 300.02 [facility] [id number] [place] [address] 05425- 4915 Nov, [facility] [id number] [place] [address] 43567- 0482 Nov, [facility] [id number] [place] [address] 24293- 0680 Nov, [facility] [id number] [place] [address] 19406- 1300 Nov, [facility] [id number] [place] [address] 84891- 0353 Nov, Vascular dementia, uncomplicated 290.40 and Lumbago 724.2 [facility] [id number] [place] [address] 25069- 5605 Nov, [place] [address] [address]- 9479 Nov, [facility] [address] [address]- 3528 Nov, [facility] [address] [address]- 6514 Oct, [facility] [id number] [address]- 6487 Oct, [facility] [address] [address]- 0466 Oct, [facility] [id number] [place] [address] 61841- 6053 Oct, COPD (chronic obstructive pulmonary disease) 496 and Hyperlipidemia 272.4 [facility] [address] [address]- 5552 Oct, Major depression, recurrent 296.30 and Anxiety, generalized 300.02 [facility] [address] [address]- 0252 Oct, [facility] [address] [address]- 9376 Oct, [facility] [address] [address]- 2895 Oct, [facility] [id number] [address]- 5614 Sep, Lumbago 724.2 and Anxiety state, unspecified 300.00 [facility] [address] [address]- 4664 Sep, [facility] [address] [address]- 9440 Sep, [facility] [id number] [address]- 3391 August, [facility] [id number] [address]- 9710 August, Major depression, recurrent 296.30 ; Anxiety, generalized 300.02 and No condition on [place] II V71.09 [facility] [address] [address]- 7037 August, [facility] [address] [place] [address]- 6069 August, [facility] [address] [address]- 8880 Jul, [facility] [address] [place] [address]- 3186 Jul, [facility] [address] [address]- 1560 Jul, [facility] [address] [address]- 7828 Jun, [facility] [address] [address]- 7326 30 Jun, 2014 [facility] [address] [address]- 3676 Jun, [facility] [address] [address]- 5155 Jun, [facility] [address] [address]- 9520 Jun, [facility] [address] [address]- 3287 Jun, [facility] [address] [address]- 1376 Jun, [facility] [address]- 1993 17 Jun, 2014 [facility] [address] [address]- 5890 Jun, [facility] [place] [facility] [address] [facility] [id number] [place] [address]- 2948 13 Jun, 2014 [facility] [place] [facility] [address] [id number] [place] [address]- 9965 10 Jun, 2014 [facility] [place] [facility] [address] [id number] [place] [address]- 5583 10 Jun, 2014 [facility] [place] [facility] [address] [id number] [place] [address]- 6187 07 Jun, 2014 [facility] [place] [facility] [address] [facility] [id number] [place] [address]- 3022 07 Jun, 2014 [facility] [place] [facility] [address] [id number] [place] [address]- 2998 02 Jun, 2014 [facility] [place] [facility] [address] [facility] [id number] [place] [address]- 1352 02 Jun, 2014 [facility] [place] [facility] [address] [facility] [id number] [place] [address]- 3353 23 May, 2014 [facility] [place] [facility] [address] [facility] [id number] [place] [address]- 0928 23 May, 2014 [facility] [place] [facility] [address] [facility] [id number] [place] [address]- 9486 May, 2014 [facility] [place] [facility] [address] [facility] [id number] [place] [address]- 6935 May, 2014 [facility] [place] [facility] [address] [facility] [id number] [place] [address]- 5156 May, 2014 [facility] [place] [facility] [address] [facility] [id number] [place] [address]- 5326 May, 2014 [facility] [place] [facility] [address] [facility] [id number] [place] [address]- 9657 19 May, 2014 [facility] [place] [facility] [address] [facility] [id number] [place] [address]- 7635 12 May, 2014 [facility] [place] [facility] [address] [facility] [id number] [place] [address]- 7715 May, 2014 [facility] [place] [facility] [address] [id number] [place] [address]- 5396 May, [facility] [place] [facility] [address] [id number] [place] [address]- 2266 May, 2014 [facility] [place] [facility] [address] [id number] [place] [address]- 3436 May, [facility] [place] [facility] [address] [id number] [place] [address]- 7058 May, [facility] [place] [facility] [address] [id number] [place] [address]- 0786 May, [facility] [place] [facility] [address] [id number] [place] [address]- 4761 Apr, [facility] [place] [facility] [address] [id number] [place] [address]- 0536 Apr, [facility] [place] [facility] [address] [id number] [place] [address]- 9630 Apr, [facility] [place] [facility] [address] [id number] [place] [address]- 4624 Apr, [facility] [place] [facility] [address] [facility] [id number] [place] [address]- 1848 Apr, [facility] [place] [facility] [address] [id number] [place] [address]- 6730 Apr, [facility] [place] [facility] [address] [id number] [place] [address]- 8001 Apr, [facility] [place] [facility] [address] [id number] [place] [address]- 2488 Apr, [facility] [place] [facility] [address] [id number] [place] [address]- 0663 Apr, [facility] [place] [facility] [address] [id number] [place] [address]- 0855 Apr, [facility] [place] [facility] [address] [id number] [place] [address]- 1092 Apr, [facility] [place] [facility] [address] [id number] [place] [address] Apr, [facility] [place] [facility] [address] [id number] [place] [address] Mar, [facility] [place] [facility] [address] [id number] [place] [address] Mar, [facility] [place] [facility] [address] [id number] [place] [address] Mar, [facility] [place] [facility] [address] [id number] [place] [address] Mar, [facility] [place] [facility] [address] [id number] [place] [address] Mar, [facility] [place] [facility] [address] [id number] [place] [address] Mar, [facility] [place] [facility] [address] [id number] [place] [address] Mar, [facility] [place] [facility] [address] [id number] [place] [address] Mar, [facility] [place] [facility] [address] [id number] [place] [address] 15 Mar, 2014 [facility] [place] [facility] [address] [id number] [place] [address]- [address] 15 Mar, 2014 [facility] [place] [facility] [address] [id number] [place] [address]- [address] 15 Mar, 2014 [facility] [place] [facility] [address] [id number] [place] [address]- [address] 15 Mar, 2014 [facility] [place] [facility] [address] [id number] [place] [address]- [address] 15 Mar, 2014 [facility] [place] [facility] [address] [id number] [place] [address] Mar, [facility] [place] [facility] [address] [id number] [place] [address]- [address] Mar, [facility] [place] [facility] [address] [id number] [place] [address] Mar, [facility] [place] [facility] [address] [id number] [place] [address]- [address] Mar, [facility] [place] [facility] [address] [id number] [place] [address] Mar, [facility] [place] [facility] [address] [id number] [place] [address]- [address] Mar, [facility] [place] [facility] [address] [id number] [place] [address] Mar, [facility] [place] [facility] [address] [id number] [place] [address]- [address] Feb, [facility] [place] [facility] [address] [id number] [place] [address] Feb, [facility] [place] [facility] [address] [id number] [place] [address]- [address] Feb, [facility] [place] [facility] [address] [id number] [place] [address] Feb, [facility] [place] [facility] [address] [id number] [place] [address]- [address] Feb, [facility] [place] [facility] [address] [id number] [place] [address]- [address] Feb, [facility] [place] [facility] [address] [id number] [place] [address]- [address] Feb, [facility] [place] [facility] [address] [id number] [place] [address]- [address] Feb, [facility] [place] [facility] [address] [id number] [place] [address]- [address] Feb, [facility] [place] [facility] [address] [id number] [place] [address] 10 Feb, 2014 [facility] [place] [facility] [address] [id number] [place] [address]- [address] Feb, [facility] [place] [facility] [address] [id number] [place] [address] Feb, [facility] [place] [facility] [address] [id number] [place] [address]- [address] Feb, [facility] [place] [facility] [address] [id number] [place] [address]- [address] Feb, [facility] [place] [facility] [address] [id number] [place] [address]- 8027 Feb, [facility] [place] [facility] [address] [id number] [place] [address]- [address] Feb, [facility] [place] [facility] [address] [id number] [place] [address]- [address] Feb, [facility] [place] [facility] [address] [id number] [place] [address]- [address] Jan, [facility] [place] [facility] [address] [id number] [place] [address]- [address] Jan, [facility] [place] [facility] [address] [id number] [place] [address]- [address] Jan, [facility] [place] [facility] [address] [id number] [place] [address]- [address] Jan, [facility] [place] [facility] [address] [id number] [place] [address]- [address] Jan, [facility] [place] [facility] [address] [id number] [place] [address]- [address] Jan, [facility] [place] [facility] [address] [id number] [place] [address]- [address] Jan, [facility] [place] [facility] [address] [id number] [place] [address]- [address] Jan, [facility] [place] [facility] [address] [id number] [place] [address]- [address]68 Jan, [facility] [place] [facility] [address] [id number] [place] [address]- [address] Jan, [facility] [place] [facility] [address] [id number] [place] [address] Jan, [facility] [place] [facility] [address] [id number] [place] [address]- [address] Dec, [facility] [place] [facility] [address] [id number] [place] [address]- [address] Dec, [facility] [place] [facility] [address] [id number] [place] [address]- [address] Nov, [facility] [place] [facility] [address] [id number] [place] [address] Nov, [facility] [place] [facility] [address] [id number] [place] [address] Nov, [facility] [place] [facility] [address] [id number] [place] [address] 0595 Nov, [facility] [place] [facility] [address] [id number] [place] [address] 5150 Nov, [facility] [place] [facility] [address] [id number] [place] [address] 5883 Nov, [facility] [place] [facility] [address] [id number] [place] [address] 5067 Nov, [facility] [place] [facility] [address] [id number] [place] [address] 7447 Oct, [facility] [place] [facility] [address] [id number] [place] [address] 9[address] Oct, [facility] [place] [facility] [address] [id number] [place] [address] Oct, [facility] [place] [facility] [address] [id number] [place] [address] 8710 Oct, [facility] [place] [facility] [address] [id number] [place] [address]- 2067 Sep, [facility] [place] [facility] [address] [id number] [place] [address] 3687 Sep, [facility] [place] [facility] [address] [id number] [place] [address] 0441 Sep, [facility] [place] [facility] [address] [id number] [place] [address]- 9366 Sep, [facility] [place] [facility] [address] [id number] [place] [address]- 2562 Sep, [facility] [place] [facility] [address] [id number] [place] [address]- 3637 Sep, [facility] [place] [facility] [address] [id number] [place] [address]- 0723 Sep, [facility] [place] [facility] [address] [id number] [place] [address]- 1368 Sep, [facility] [place] [facility] [address] [id number] [place] [address]- 6251 Sep, [facility] [place] [facility] [address] [facility] [id number] [place] [address]- 9295 Sep, [facility] [place] [facility] [address] [id number] [place] [address]- 1262 Sep, [facility] [place] [facility] [address] [id number] [place] [address]- 8026 Sep, [facility] [place] [facility] [address] [id number] [place] [address]- 1665 Sep, [facility] [place] [facility] [address] [id number] [place] [address]- 6156 Sep, [facility] [place] [facility] [address] [facility] [id number] [place] [address]- 6829 August, [facility] [place] [facility] [address] [id number] [place] [address]- 5665 August, [facility] [place] [facility] [address] [id number] [place] [address]- 1664 August, [facility] [place] [facility] [address] [id number] [place] [address]- 9596 August, [facility] [place] [facility] [address] [id number] [place] [address]- 5713 August, [facility] [place] [facility] [address] [id number] [place] [address]- 2231 August, [facility] [place] [facility] [address] [id number] [place] [address]- 5385 August, [facility] [place] [facility] [address] [id number] [place] [address] 5717 August, [facility] [place] [facility] [address] [id number] [place] [address]- [address] August, [facility] [place] [facility] [address] [id number] [place] [address]- 0506 August, [facility] [place] [facility] [address] [id number] [place] [address] August, [facility] [place] [facility] [address] [id number] [place] [address]- 4754 August, [facility] [place] [facility] [address] [id number] [place] [address]- 2691 August, [facility] [place] [facility] [address] [id number] [place] [address]- 6241 August, [facility] [place] [facility] [address] [id number] [place] [address]- 6414 August, [facility] [place] [facility] [address] [id number] [place] [address]- 9986 August, [facility] [place] [facility] [address] [id number] [place] [address]- 6884 August, [facility] [place] [facility] [address] [id number] [place] [address]- 1130 August, [facility] [place] [facility] [address] [id number] [place] [address]- 6867 August, [facility] [place] [facility] [address] [id number] [place] [address]- 8306 Jul, [facility] [place] [facility] [address] [id number] [place] [address]- 7702 Jul, [facility] [place] [facility] [address] [id number] [place] [address]- 1353 Jul, [facility] [place] [facility] [address] [id number] [place] [address]- 9295 Jul, [facility] [place] [facility] [address] [id number] [place] [address]- 7613 Jun, [facility] [place] [facility] [address] [id number] [place] [address]- 9463 Jun, [facility] [place] [facility] [address] [id number] [place] [address]- 0357 Jun, [facility] [place] [facility] [address] [id number] [place] [address]- 9639 24 Jun, 2013 [facility] [place] [facility] [address] [id number] [place] [address]- 2019 Jun, [facility] [place] [facility] [address] [id number] [place] [address]- 0810 17 Jun, 2013 [facility] [place] [facility] [address] [id number] [place] [address]- 1270 14 Jun, 2013 [facility] [place] [facility] [address] [id number] [place] [address]- 6591 14 Jun, 2013 [facility] [place] [facility] [address] [id number] [place] [address]- 1276 06 Jun, 2013 [facility] [place] [facility] [address] [facility] [id number] [place] [address]- 5161 Jun, [facility] [place] [facility] [address] [facility] [id number] [place] [address]- 7203 May, [facility] [place] [facility] [address] [id number] [place] [address]- 0856 May, [facility] [place] [facility] [address] [facility] [id number] [place] [address]- 0754 May, [facility] [place] [facility] [address] [id number] [place] [address]- 6073 May, [facility] [place] [facility] [address] [facility] [id number] [place] [address]- 1848 May, [facility] [place] [facility] [address] [facility] [id number] [place] [address]- 6604 May, [facility] [place] [facility] [address] [facility] [id number] [place] [address]- 5473 May, [facility] [place] [facility] [address] [facility] [id number] [place] [address]- 9895 May, [facility] [place] [facility] [address] [facility] [id number] [place] [address]- 6278 May, [facility] [place] [facility] [address] [facility] [id number] [place] [address]- 0383 May, [facility] [place] [facility] [address] [facility] [id number] [place] [address]- 7374 May, [facility] [place] [facility] [address] [facility] [id number] [place] [address]- 8073 17 May, 2013 [facility] [place] [facility] [address] [facility] [id number] [place] [address]- 4379 May, [facility] [place] [facility] [address] [facility] [id number] [place] [address]- 1953 May, [facility] [place] [facility] [address] [facility] [id number] [place] [address]- 1615 10 May, 2013 [facility] [address] [id number] [place] [address]- 1749 07 May, 2013 [facility] [place] [facility] [address] [id number] [place] [address]- 1576 07 May, 2013 [facility] [place] [facility] [address] [id number] [place] [address]- 5536 Apr, [facility] [place] [facility] [address] [id number] [place] [address]- 1744 Apr, [facility] [address] [id number] [place] [address]- 9167 Apr, [facility] [place] [facility] [address] [id number] [place] [address]- 8649 Apr, [facility] [address] [facility] [id number] [place] [address]- 7085 Apr, [facility] [place] [facility] [address] [id number] [place] [address]- 6741 Apr, [facility] [address] [id number] [place] [address]- 6520 Apr, [facility] [address] [facility] [id number] [place] [address]- 5679 Mar, [facility] [place] [facility] [address] [id number] [place] [address]- 5394 Mar, [facility] [place] [facility] [address] [id number] [place] [address]- 9645 Mar, [facility] [place] [facility] [address] [id number] [place] [address]- 4591 Mar, [facility] [place] [facility] [address] [id number] [place] [address]- 0718 Mar, [facility] [place] [facility] [address] [facility] [id number] [place] [address]- 3686 Mar, [facility] [place] [facility] [address] [id number] [place] [address]- 2824 Mar, [facility] [place] [facility] [address] [id number] [place] [address]- 1476 Mar, [facility] [place] [facility] [address] [id number] [place] [address]- 9869 Mar, [facility] [place] [facility] [address] [id number] [place] [address]- 8590 Mar, [facility] [place] [facility] [address] [id number] [place] [address]- 2766 Mar, [facility] [place] [facility] [address] [id number] [place] [address]- 6721 Feb, [facility] [place] [facility] [address] [id number] [place] [address]- 1517 Feb, [facility] [place] [facility] [address] [id number] [place] [address]- 3724 Feb, [facility] [place] [facility] [address] [id number] [place] [address]- 2035 20 Feb, 2013 [facility] [place] [facility] [address] [id number] [place] [address]- 0588 Feb, [facility] [place] [facility] [address] [id number] [place] [address]- 8918 19 Feb, 2013 [facility] [place] [facility] [address] [id number] [place] [address]- 4704 15 Feb, 2013 [facility] [place] [facility] [address] [id number] [place] [address]- 6113 14 Feb, 2013 [facility] [place] [facility] [address] [id number] [place] [address]- 5865 14 Feb, 2013 [facility] [place] [facility] [address] [id number] [place] [address]- 2549 13 Feb, 2013 [facility] [place] [facility] [address] [id number] [place] [address]- 5799 Feb, [facility] [place] [facility] [address] [id number] [place] [address]- 2364 Feb, [facility] [place] [facility] [address] [id number] [place] [address] 1944 Feb, [facility] [place] [facility] [address] [id number] [place] [address] Feb, [facility] [place] [facility] [address] [id number] [place] [address]- 5558 Feb, [facility] [place] [facility] [address] [id number] [place] [address]- 1963 Feb, [facility] [place] [facility] [address] [id number] [place] [address]- 5368 Jan, [facility] [place] [facility] [address] [id number] [place] [address]- 7799 Jan, [facility] [place] [facility] [address] [id number] [place] [address]- 4600 Jan, [facility] [place] [facility] [address] [id number] [place] [address]- 6919 Jan, [facility] [place] [facility] [address] [id number] [place] [address]- 1748 Jan, [facility] [place] [facility] [address] [id number] [place] [address]- 0376 Jan, [facility] [place] [facility] [address] [id number] [place] [address]- 6762 Jan, [facility] [place] [facility] [address] [id number] [place] [address]- 9441 Jan, [facility] [place] [facility] [address] [id number] [place] [address]- 8352 Jan, [facility] [place] [facility] [address] [id number] [place] [address]- 1439 27 Dec, 2012 [facility] [place] [facility] [address] [id number] [place] [address]- 8697 20 Dec, 2012 [facility] [place] [facility] [address] [id number] [place] [address] 2546 19 Dec, 2012 [facility] [place] [facility] [address] [id number] [place] [address] 2546 10 Dec, 2012 [facility] [place] [facility] [address] [id number] [place] [address] 2546 04 Dec, 2012 [facility] [place] [facility] [address] [id number] [place] [address] 2547 03 Dec, 2012 [facility] [place] [facility] [address] [id number] [place] [address]- 4512 Nov, [facility] [place] [facility] [address] [id number] [place] [address]- 5028 Nov, [facility] [place] [facility] [address] [id number] [place] [address]- 8667 Nov, [facility] [place] [facility] [address] [id number] [place] [address]- 3517 Nov, [facility] [place] [facility] [address] [id number] [place] [address]- 0770 Nov, [facility] [place] [facility] [address] [id number] [place] [address]- 6608 Nov, [facility] [place] [facility] [address] [id number] [place] [address] 2544 Nov, [facility] [place] [facility] [address] [id number] [place] [address]- 2545 15 Nov, 2012 [facility] [place] [facility] [address] [id number] [place] [address]- 2541 14 Nov, 2012 [facility] [place] [facility] [address] [id number] [place] [address]- 2541 Nov, [facility] [place] [facility] [address] [id number] [place] [address]- 6232 17 Oct, 2012 [facility] [place] [facility] [address] [id number] [place] [address]- 7794 Oct, 2012 [facility] [place] [facility] [address] [id number] [place] [address]- 2035 Oct, 2012 [facility] [place] [facility] [address] [id number] [place] [address]- 8466 Oct, 2012 [facility] [place] [facility] [address] [id number] [place] [address]- 0635 Oct, 2012 [facility] [place] [facility] [address] [id number] [place] [address]- 4259 Oct, 2012 [facility] [place] [facility] [address] [id number] [place] [address]- 0588 Oct, [facility] [place] [facility] [address] [id number] [place] [address]- 3410 Oct, [facility] [place] [facility] [address] [id number] [place] [address]- 8331 Sep, [facility] [place] [facility] [address] [id number] [place] [address]- 3990 Sep, [facility] [place] [facility] [address] [id number] [place] [address]- 6054 Sep, [facility] [place] [facility] [address] [id number] [place] [address]- 8142 Sep, [facility] [place] [facility] [address] [id number] [place] [address]- 2711 Sep, [facility] [place] [facility] [address] [id number] [place] [address]- 2066 Sep, [facility] [place] [facility] [address] [id number] [place] [address]- 5705 Sep, [facility] [place] [facility] [address] [id number] [place] [address]- 0499 Sep, [facility] [place] [facility] [address] [id number] [place] [address]- 3050 August, [facility] [address] [id number] [place] [address]- 2075 August, [facility] [address] [id number] [place] [address]- 3607 August, [facility] [address] [id number] [place] [address]- 8141 August, [facility] [address] [id number] [place] [address]- 7797 August, [facility] [address] [id number] [place] [address]- 3015 Jul, [facility] [address] [id number] [place] [address]- 0744 Jul, [facility] [address] [id number] [place] [address]- 2141 Jul, [facility] [address] [id number] [place] [address]- 3352 Jul, [facility] [address] [id number] [place] [address]- 7571 Jul, [facility] [address] [id number] [place] [address]- 3332 Jun, [facility] [address] [id number] [place] [address]- 6089 18 Jun, 2012 [facility] [place] [facility] [address] [id number] [place] [address]- 2376 15 Jun, 2012 [facility] [place] [facility] [address] [id number] [place] [address]- 3828 14 Jun, 2012 [facility] [place] [facility] [address] [id number] [place] 8212 12 Jun, 2012 [facility] [place] [facility] [address] [id number] [place] [address]23 08 Jun, 2012 [facility] [place] [facility] [address] [id number] [place] [address]- 0024 08 Jun, 2012 [facility] [address] [id number] [place] [address]- 9212 Jun, [facility] [address] [id number] [place] [address]- 2666 Jun, [facility] [address] [id number] [place] [address]- 6765 May, [facility] [address] [id number] [place] [address]- 4049 May, [facility] [address] [id number] [place] [address]- 7398 May, [facility] [address] [id number] [place] [address]- 9261 May, [facility] [address] [id number] [place] [address]- 6186 Apr, [facility] [address] [id number] [place] [address]- 6942 Apr, [facility] [address] [id number] [place] [address]- 9543 Apr, [facility] [address] [id number] [place] [address]- 4496 Apr, [facility] [address] [id number] [place] [address]- 6674 Apr, [facility] [address] [id number] [place] [address]- 4094 Apr, [facility] [address] [id number] [place] [address]- 3141 Apr, [facility] [address] [id number] [place] [address]- 3954 Mar, [facility] [address] [place] [id number] Mar, [facility] [address] [id number] [place] [address]- 3706 Mar, [facility] [place] [facility] [address] [id number] [place] [address]- 3066 Mar, [facility] [place] [facility] [address] [id number] [place] [address]- 1846 Mar, [facility] [place] [facility] [address] [id number] [place] [address]- 2616 Mar, [facility] [address] [id number] [place] [address]- 9989 Mar, [facility] [place] [facility] [address] [id number] [place] [address]- 1606 Mar, [facility] [place] [facility] [address] [id number] [place] [address]- 7057 Mar, [facility] [place] [facility] [address] [id number] [place] [address]- 9199 Mar, [facility] [place] [facility] [address] [id number] [place] [address]- 5879 Mar, [facility] [place] [facility] [address] [id number] [place] [address]- 0147 Mar, [facility] [place] [facility] [address] [id number] [place] [address] 45[address] Mar, [facility] [place] [facility] [address] [id number] [place] [address] 1539 Mar, [facility] [place] [facility] [address] [id number] [place] [address] 68[address] Mar, [facility] [place] [facility] [address] [id number] [place] [address]- 2076 Mar, [facility] [place] [facility] [address] [id number] [place] [address] Mar, [facility] [place] [facility] [address] [id number] [place] [address] Feb, [facility] [place] [facility] [address] [id number] [place] [address] 8814 Feb, [facility] [place] [facility] [address] [id number] [place] [address] Feb, [facility] [place] [facility] [address] [id number] [place] [address] 8669 Feb, [facility] [place] [facility] [address] [id number] [place] [address]- 1838 Feb, [facility] [place] [facility] [address] [id number] [place] [address]- 73[address] Feb, [facility] [place] [facility] [address] [id number] [place] [address]- 5879 Feb, [facility] [place] [facility] [address] [id number] [place] [address]- 2416 Feb, [facility] [place] [facility] [address] [id number] [place] [address]- 1110 Feb, [facility] [place] [facility] [address] [id number] [place] [address]- 66[address] Feb, [facility] [place] [facility] [address] [id number] [place] [address]- 4815 Feb, [facility] [place] [facility] [address] [id number] [place] [address] Feb, [facility] [place] [facility] [address] [id number] [place] [address] 97[address] Feb, [facility] [place] [facility] [address] [id number] [place] [address]- 1768 Feb, [facility] [place] [facility] [address] [id number] [place] [address]- 2658 Feb, [facility] [place] [facility] [address] [id number] [place] [address]- 7616 Feb, [facility] [place] [facility] [address] [id number] [place] [address]- [address]105 Jan, 2011 [facility] [place] [facility] [address] [id number] [place] [address]- 3136 Jan, 2011 [facility] [place] [facility] [address] [id number] [place] [address]- 7455 Jan, 2011 [facility] [place] [facility] [address] [id number] [place] [address]- 9333 Jan, [facility] [place] [facility] [address] [id number] [place] [address]- 2532 Jan, [facility] [place] [facility] [address] [id number] [place] [address]- 3513 Jan, [facility] [place] [facility] [address] [id number] [place] [address]- 5648 Jan, [facility] [place] [facility] [address] [id number] [place] [address]- 8261 Jan, [facility] [place] [facility] [address] [id number] [place] [address]- 3280 Jan, [facility] [place] [facility] [address] [id number] [place] [address]- 6511 Jan, [facility] [place] [facility] [address] [id number] [place] [address]- 8010 Jan, [facility] [place] [facility] [address] [id number] [place] [address]- 6752 Jan, [facility] [place] [facility] [address] [id number] [place] [address]- 8281 Jan, [facility] [place] [facility] [address] [id number] [place] [address]- 2429 Jan, [facility] [place] [facility] [address] [id number] [place] [address]- [address]007 08 Jan, 2012 [facility] [place] [facility] [address] [id number] [place] [address]- 4888 Jan, [facility] [place] [facility] [address] [id number] [place] [address]- 7356 04 Jan, 2012 [facility] [place] [facility] [address] [id number] [place] [address]- [address]376 21 Dec, 2011 [facility] [place] [facility] [address] [id number] [place] [address]- 9765 20 Dec, 2011 [facility] [place] [facility] [address] [id number] [place] [address]- 7921 18 Dec, 2011 [facility] [place] [facility] [address] [id number] [place] [address]- 9701 18 Dec, 2011 [facility] [place] [facility] [address] [id number] [place] [address]- 0883 10 Dec, 2011 [facility] [place] [facility] [address] [id number] [place] [address]- 0851 10 Dec, 2011 [facility] [place] [facility] [address] [id number] [place] [address]- 2110 10 Dec, 2011 [facility] [place] [facility] [address] [id number] [place] [address]- [address]60 07 Dec, 2011 [facility] [place] [facility] [address] [id number] [place] [address]- 5918 30 Nov, 2011 [facility] [place] [facility] [address] [id number] [place] [address]- 0997 25 Nov, 2011 [facility] [place] [facility] [address] [id number] [place] [address] 8712 24 Nov, 2011 [facility] [place] [facility] [address] [id number] [place] [address]- 0639 Nov, [facility] [place] [facility] [address] [id number] [place] [address]- 9298 Nov, [facility] [place] [facility] [address] [id number] [place] [address]- 5481 16 Nov, 2011 [facility] [place] [facility] [address] [id number] [place] [address]- 2981 30 Oct, 2011 [facility] [place] [facility] [address] [id number] [place] [address]- 2746 30 Oct, 2011 [facility] [place] [facility] [address] [id number] [place] [address]- 4416 Oct, [facility] [place] [facility] [address] [id number] [place] [address]- 4016 Oct, [facility] [place] [facility] [address] [id number] [place] [address]- 7367 Oct, [facility] [place] [facility] [address] [id number] [place] [address]- 7441 Oct, [facility] [place] [facility] [address] [id number] [place] [address]- 4696 Oct, [facility] [place] [facility] [address] [id number] [place] [address]- 2767 Sep, [facility] [place] [facility] [address] [id number] [place] [address]- 4118 Sep, [facility] [place] [facility] [address] [id number] [place] [address]- 0347 Sep, [facility] [place] [facility] [address] [id number] [place] [address]- 1271 Sep, [facility] [place] [facility] [address] [id number] [place] [address]- 0725 19 Sep, 2011 [facility] [place] [facility] [address] [id number] [place] [address]- 2542 15 Sep, 2011 [facility] [place] [facility] [address] [id number] [place] [address]- 7839 14 Sep, 2011 [facility] [place] [facility] [address] [id number] [place] [address]- 7107 11 Sep, 2011 [facility] [place] [facility] [address] [id number] [place] [address]- 3284 05 Sep, 2011 [facility] [place] [facility] [address] [id number] [place] [address]- 6716 Sep, [facility] [address] [id number] [place] [address]- 0643 August, [facility] [address] [id number] [place] [address]- 1227 August, [facility] [address] [id number] [place] [address]- 1756 August, [facility] [facility] [address] [id number] [place] [address] August, [facility] [address] [id number] [place] [address] August, [facility] [address] [id number] [place] [address] Jul, [facility] [address] [id number] [place] [address] Jul, [facility] [address] [id number] [place] [address] Jul, [facility] [address] [id number] [place] [address] Jul, [facility] [place] [facility] [address] [id number] [place] [address] Jul, [facility] [place] [facility] [address] [id number] [place] [address] Jul, [facility] [place] [facility] [address] [id number] [place] [address] Jul, [facility] [place] [facility] [address] [id number] [place] [address] Jun, [facility] [place] [facility] [address] [id number] [place] [address] Jun, [facility] [place] [facility] [address] [id number] [place] [address] Jun, [facility] [place] [facility] [address] [id number] [place] [address] Jun, [facility] [place] [facility] [address] [id number] [place] [address] Jun, [facility] [place] [facility] [address] [facility] [id number] [place] [address] May, [facility] [place] [facility] [address] [id number] [place] [address] May, [facility] [place] [facility] [address] [id number] [place] [address] May, [facility] [place] [facility] [address] [facility] [id number] [place] [address] May, [facility] [address] [facility] [id number] [place] [address] May, [facility] [place] [facility] [address] [facility] [id number] [place] [address] May, [facility] [place] [facility] [address] [id number] [place] [address] Apr, [facility] [place] [facility] [address] [facility] [id number] [place] [address] Mar, [facility] [place] [facility] [address] [facility] [id number] [place] [address] Feb, [facility] [place] [facility] [address] [facility] [id number] [place] [address] Feb, [facility] [place] [facility] [address] [facility] [id number] [place] [address] Feb, [facility] [place] [facility] [address] [facility] [id number] [place] [address] Feb, [facility] [place] [facility] [address] [id number] [place] [address] Jan, [facility] [place] [facility] [address] [id number] [place] [address] 27 Jan, 2011 [facility] [place] [facility] [address] [id number] [place] [address] 26 Jan, 2011 [facility] [place] [facility] [address] [id number] [place] [address]46 24 Jan, 2011 [facility] [place] [facility] [address] [id number] [place] [address]46 14 Jan, 2011 [facility] [place] [facility] [address] [id number] [place] [address] Dec, [facility] [place] [facility] [address] [id number] [place] [address] Oct, [facility] [place] [facility] [address] [id number] [place] [address] August, [facility] [place] [facility] [address] [id number] [place] [address] 29 Mar, 2010 [facility] [place] [facility] [address] [id number] [place] [address] 27 Mar, 2010 [facility] [place] [facility] [address] [id number] [place] [address] 16 Mar, 2010 [facility] [place] [facility] [address] [id number] [place] [address] 15 Mar, 2010 [facility] [place] [facility] [address] [id number] [place] [address] 2546 15 Mar, 2010 [facility] [place] [facility] [address] [id number] [place] [address] 2543 08 Mar, 2010 [facility] [place] [facility] [address] [id number] [place] [address] 2546 03 Mar, 2010 [facility] [place] [facility] [address] [id number] [place] [address] 2546 24 Feb, 2010 [facility] [place] [facility] [address] [id number] [place] [address] 24 Feb, 2010 [facility] [place] [facility] [address] [id number] [place] [address] 15 Feb, 2010 [facility] [place] [facility] [address] [id number] [place] [address]- [address] 19 Jan, 2010 [facility] [place] [facility] [address] [id number] [place] [address] 18 Jan, 2010 [facility] [place] [facility] [address] [id number] [place] [address]47 Jan, [facility] [place] [facility] [address] [id number] [place] [address] Nov, [facility] [place] [facility] [address] [id number] [place] [address] Sep, [facility] [place] [facility] [address] [id number] [place] [address] August, [facility] [place] [facility] [address] [id number] [place] [address] 30 Mar, 2009 [facility] [place] [facility] [address] [id number] [place] [address] Mar, [facility] [place] [facility] [address] [facility] [id number] [place] [address] 17 Feb, 2009 [facility] [place] [facility] [address] [id number] [place] [address] 10 Feb, 2009 [facility] [place] [facility] [address] [id number] [place] [address] 10 Feb, 2009 [facility] [place] [facility] [address] [id number] [place] [address] Feb, [facility] [place] [facility] [address] [facility] [id number] [place] [address]- [address] 06 Feb, 2009 [facility] [place] [facility] [address] [facility] [id number] [place] [address] 27 Jan, 2009 [facility] [place] [facility] [address] [id number] [address] Jan, [facility] [id number] [address] Jan, [facility] [id number] [address] Jan, [facility] [id number] [address] Nov, [facility] [id number] [address] Sep, [facility] [id number] [place] [address] August, [facility] [id number] [address] Jul, [facility] [id number] [address] May, IMMUNIZATIONS No Known Immunizations SOCIAL HISTORY [...]
[2017-09-11] MEDS ORDERED: ceFAZolin INJECTION 1,000 MG in NS (IVPB) 50 ML IV ONE (09:15)
--- OUTSIDE RECORDS SUMMARY | 2017-09-11 09:20 | XMS REPORT ---
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 Active 21854514 Problem Colon polyp K63.5 Active 51651948 Problem Bilateral low back pain without sciatica M54.5 Active 618468365 Problem Screening breast examination Z12.39 Active 388261042 Problem Postmenopausal Z78.0 Active 56883931 Problem Osteopenia M85.80 Active 383359273 Problem Cigarette nicotine dependence without complication F17.210 Active 06123276 Problem Type 2 diabetes mellitus with diabetic peripheral angiopathy without gangrene E11.51 Active 670294296 Problem Vascular dementia without behavioral disturbance F01.50 Active [id number] Problem Unspecified atherosclerosis of [place] arteries of extremities, unspecified extremity I70.209 Active 746626511534103 Problem Arthritis M19.90 Active 6950460 Problem Chronic atrial fibrillation I48.2 Active 391387361 Problem Chronic obstructive pulmonary disease with acute lower respiratory infection J44.0 Active 675150495 Problem Other chronic pancreatitis K86.1 Active 878589790 Problem Stress incontinence of urine N39.3 Active 67188721 Problem Controlled type 2 diabetes mellitus without complication, without long -term current use of insulin E11.9 Active 377679181 Problem Unspecified psychosis F29 Active 55127905 Problem Xeroderma Q80.9 Active 75161674 Problem COPD (chronic obstructive pulmonary disease) J44.9 Active 72795636 Problem Dementia without behavioral disturbance, unspecified dementia type F03.90 Active 79982159 Problem Gastroparesis K31.84 Active 856691477 Problem Type 2 diabetes mellitus with diabetic neuropathy, without long-term current use of insulin E11.40 Active 49942114 Problem Osteoporosis M81.0 Active 35799735 Problem Atherosclerosis of [place] artery of both lower extremities with intermittent claudication I70.213 Active 157456462545120 Problem Hyperlipidemia E78.5 Active 11914430 Problem Diabetic polyneuropathy associated with type 2 diabetes mellitus E11.42 Active 59212317 Problem Essential tremor G25.0 Active 63818603 Problem 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.118 Active 8262061759376 Problem Generalized anxiety disorder F41.1 Active 060175900 Problem Gastroesophageal reflux disease, esophagitis presence not specified K21.9 Active 929999784 Problem Coronary artery disease involving [place] coronary artery of [place] 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 I25.118 Active 7514379289755 Problem Postconcussion syndrome F07.81 Active 30831647 Problem Chronic pain syndrome G89.4 Active 865291102 Problem Migraine without aura and without status migrainosus, not intractable G43.009 Active 465260393 Problem Paroxysmal atrial fibrillation I48.0 Active 476967498 Problem Migraine without aura and with status migrainosus, not intractable G43.001 Active 091442666 Problem Cervicalgia M54.2 Active 5507938271694 Problem Acute exacerbation of chronic obstructive pulmonary disease (COPD) J44.1 Active 401004491 Problem Major depressive disorder, recurrent episode, moderate F33.1 Active 303766119 Problem Crohn''s disease without complication, unspecified gastrointestinal tract location K50.90 Active 81528115 Problem Chronic fatigue R53.82 Active 69044345 Problem Bipolar affective disorder, currently depressed, moderate F31.32 Active 304293426 ALLERGIES Substance Reaction Event Type Date Status Penicillin V Potassium rash Drug Allergy Nov, Active Neosporin rash Drug Allergy Nov, Active Ibuprofen rash Drug Allergy Nov, Active Glipizide hives, nausea Drug Allergy Nov, Active ENCOUNTERS Encounter Location Date Diagnosis [facility] [address] [facility] [id number] [address] Jul, [facility] [address] [facility] [id number] [place] [address] Jul, [facility] [id number] [place] [address] 98050- [address] Jul, [facility] [id number] [place] [address] 85540- [address] Jul, [facility] [id number] [place] [address] 90695- 6887 Jul, [facility] [id number] [place] [address] 43131- 1542 Jul, Post-menopausal Z78.0 [facility] [id number] [place] [address] 15414- 1064 Jul, Stress incontinence of urine N39.3 [facility] [id number] [place] [address] 14541- 2178 Jul, [facility] [id number] [place] [address] 44543- 3175 Jul, [facility] [address] 79707- 0675 Jul, Stress incontinence of urine N39.[address] [facility] [id number] [place] [address] 93059- [address] Jul, [facility] [id number] [place] [address] 26157- [address] Jul, [facility] [id number] [place] [address] 04363- 4158 Jul, [facility] [id number] [place] [address] 15581- 4817 Jul, Gastroesophageal reflux disease, esophagitis presence not specified K21.9 [facility] [id number] [place] [address] 56585- 1328 Jun, Diabetic polyneuropathy associated with type [address] [facility] [id number] [place] [address] 17668- 8656 Jun, Diabetic polyneuropathy associated with type 2 diabetes mellitus E11.42 ; Coronary artery disease involving [place] coronary artery of [place] 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 I25.118 and Paroxysmal atrial fibrillation I48.0 [facility] [id number] [place] [address] 45154- 6501 Jun, [facility] [id number] [place] [address] 88864- 9538 Jun, [facility] [id number] [place] [address] 420534- 1519 Jun, Gastroenteritis K52.9 [facility] [id number] [place] [address] 598592- 5933 Jun, Gastroenteritis K52.9 [facility] [id number] [place] [address] 52922- 0163 Jun, [facility] [id number] [place] [address] 06153- 7620 Jun, 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 [id number] [place] [address] 72337- 1214 Jun, [facility] [id number] [place] [address] 86971- 7545 Jun, Coughing R05 ; Unspecified atherosclerosis of [place] arteries of extremities, unspecified extremity I70.209 ; Type 2 diabetes mellitus with diabetic peripheral angiopathy without gangrene E11.51 ; Crohn''s disease without complication, unspecified gastrointestinal tract location K50.90 ; Other chronic pancreatitis K86.1 and Chronic atrial fibrillation I48.2 [facility] [address] [address] Jun, [facility] [id number] [place] [address] 40987- 1442 Jun, Bipolar affective disorder, currently depressed, moderate F31.32 ; Vascular dementia without behavioral disturbance F01.50 and Generalized anxiety disorder F41.1 [facility] [id number] [place] [address] 49605- 4491 May, Generalized anxiety disorder F41.1 [facility] [id number] [place] [address] 21890- 1240 May, [facility] [id number] [place] [address] 80448- 3594 May, [facility] [id number] [place] [address] 18463- 5217 May, Coughing R05 [facility] [id number] [place] [address] 89644- 0082 May, [facility] [id number] [place] [address] 24079- 0927 May, Bipolar affective disorder, currently depressed, moderate F31.32 ; Vascular dementia without behavioral disturbance F01.50 and Generalized anxiety disorder F41.1 [facility] [id number] [place] [address] 27820- 5049 Apr, Generalized anxiety disorder F41.1 [facility] [id number] [place] [address] 85151- 0783 Apr, [facility] [address] [address] 0897 Apr, Vascular dementia without behavioral disturbance F01.50 ; Generalized anxiety disorder F41.1 and Bipolar affective disorder, currently depressed, moderate F31.32 [place] [id number] [place] [address] 33518- 0959 Apr, Generalized anxiety disorder F41.1 [facility] [id number] [place] [address] 10208 -5765 Apr, Cough R05 and Acute exacerbation of chronic obstructive pulmonary disease (COPD) J44.1 [place] [address] 27650- 2822 Apr, [facility] [address] 91097 -7282 Mar, Cough R05 and Cigarette nicotine dependence without complication F17.210 [place] [address] 24244- 3122 Mar, [address] 74747- 0397 Feb, Generalized anxiety disorder F41.1 ; Major depressive disorder, recurrent episode, moderate F33.1 ; Vascular dementia without behavioral disturbance F01.50 and Unspecified psychosis F29 [address] 10923- 7387 Feb, [address] 85630- 6390 Feb, [address] 69446- 6512 Feb, Generalized anxiety disorder F41.[address] 76349- 6869 Feb, Generalized anxiety disorder F41.[address] 98076- 8773 Feb, Dizziness R42 ; Chronic fatigue R53.82 ; Postconcussion syndrome F07.81 ; Fall, initial encounter W19.XXXA and Disorientation R41.0 [place] [id number] [place] [address] 70342- 8201 Feb, Postconcussion syndrome F07.81 ; Injury of head, initial encounter S09.90XA ; Fall, initial encounter W19.XXXA ; Disorientation R41.0 and Acute cystitis with hematuria N30.01 [place] [id number] [place] [address] 18158- 1087 Jan, Gastroesophageal reflux disease, esophagitis presence not specified K21.9 ; Post-menopausal Z78.0 and Migraine without aura and without status migrainosus, not intractable G43.009 [place] [address] 92810- 4380 Jan, [place] [id number] [place] [address] 29511- 8752 Jan, Generalized anxiety disorder F41.1 ; Major depressive disorder, recurrent episode, moderate F33.1 ; Vascular dementia without behavioral disturbance F01.50 and Unspecified psychosis F29 [place] [id number] [place] [address] 40518- 9960 Jan, Pneumonia of left lower lobe due to infectious organism J18.1 [place] [id number] [place] [address] 32767- 1490 Jan, Migraine without aura and with status migrainosus, not intractable G43.001 [facility] [id number] [place] [address] 52678 -4980 Jan, Migraine without aura and without status migrainosus, not intractable G43.009 [place] [id number] [place] [address] 14282- 8282 Dec, Hematoma T14.8 [place] [id number] [place] [address] 83735- 2954 Dec, [facility] [id number] [place] [address] 42281 -5832 Nov, Fatigue, unspecified type R53.83 [facility] [address] [address] 3594 Nov, Scabies B86 and Coronary artery disease involving [place] coronary artery of [place] 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 I25.118 [facility] [address] [address] 1797 Nov, [facility] [id number] [place] [address] 65568- 4199 Nov, [facility] [id number] [place] [address] 66719- 3897 Oct, [place] [id number] [place] [address] 06518- 8840 Oct, Generalized anxiety disorder F41.1 and Major depressive disorder, recurrent episode, moderate F33.1 [place] [id number] [place] [address] 88097- 6342 Oct, Cramp of both lower extremities R25.2 [place] [id number] [place] [address] 84616- 5423 Oct, Leg cramps R25.2 [place] [id number] [place] [address] 57211- 5274 Oct, Chronic pain syndrome G89.4 [place] [id number] [place] [address] 63539- 0330 Oct, [facility] [id number] [place] [address] 35426- 5804 Oct, [facility] [id number] [place] [address] 62978- 6479 11 Oct, 2016 Routine gynecological examination Z01.419 and Screening for breast cancer Z12.31 [facility] [address] [address]- 7962 Sep, Diarrhea R19.7 [facility] [id number] [place] [address] 51421- 0399 Sep, Back pain M54.9 [place] [id number] [place] [address] 49057- 3987 Sep, [place] [id number] [place] [address] 98593- 5701 Sep, [facility] [id number] [place] [address] 52006 -0580 August, Xeroderma Q80.9 [place] [address] 28557- 8271 August, Dementia without behavioral disturbance, unspecified dementia type F03.90 [place] [id number] [place] [address] 43355- 0825 August, Chronic pain syndrome G89.4 [place] [id number] [place] [address] 97658- 3750 August, [place] [address] 89201- 3432 August, Hyperlipidemia E78.5 ; Other fatigue R53.83 and Other specified hypotension I95.89 [facility] [place] [id number] [place] [address] 63977 -3437 August, Dysuria R30.0 ; Other fatigue R53.83 and Other specified hypotension I95.89 [place] [id number] [place] [address] 40661- 2150 August, [place] [id number] [place] [address] 95855- 2194 Jul, Pain in left knee M25.562 and Gastroenteritis K52.9 [place] [id number] [place] [address] 89416- 6618 Jul, [place] [id number] [place] [address] 66251- 8990 Jul, Diarrhea R19.7 [facility] [address] [place] [id number] [place] [address] 60857 -6091 Jul, Spider bite, accidental or unintentional, initial encounter T63.301A [place] [address] 40328- 2493 Jul, Primary osteoarthritis of right knee M17.11 and Arthritis M19.90 [place] [address] 99488- 5276 Jul, Generalized anxiety disorder F41.1 and Major depressive disorder, recurrent episode, moderate F33.1 [place] [address] 24797- 8167 Jul, Type 2 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 and Temporal headache R51 [place] [address] 11753- 3880 Jul, Back pain M54.9 [place] [address] 67753- 5764 Jul, [place] [address] 65673- 4672 Jul, [place] [address] 74910- 8669 Jun, Nausea R11.0 [facility] [place] [id number] [place] [address] 34620 -3080 Jun, Acute suppurative otitis media of both ears without spontaneous rupture of tympanic membranes, recurrence not specified H66.003 and COPD exacerbation J44.1 [place] [id number] [place] [address] 74277- 9116 Jun, Generalized anxiety disorder F41.1 [place] [id number] [place] [address] 06818- 3181 16 Jun, 2016 [facility] [id number] [place] [address] 10962 -7187 Jun, [facility] [id number] [place] [address] 35195 -3350 13 Jun, 2016 Shortness of breath R06.02 and COPD exacerbation J44.1 [place] [address] 35838- 3099 10 Jun, 2016 Eczema, unspecified type L[address].9 [facility] [address] 07460- 0310 Jun, [facility] [address] 62304- 1740 May, [place] [address] 04972- 9791 May, Muscle cramping R25.2 [place] [address] 05055- 6028 May, [place] [address] 12742- 6501 Apr, Diarrhea R19.7 [place] [id number] [place] [address] 55364- 2960 Apr, [place] [id number] [place] [address] 45647- 0039 Apr, Chronic pain syndrome G89.4 [place] [id number] [place] [address] 42390- 5239 Apr, Cramp of both lower extremities R25.2 and Vascular dementia without behavioral disturbance F01.50 [place] [id number] [place] [address] 42177- 7066 Apr, Type 2 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 and Cigarette nicotine dependence without complication F17.210 [place] [id number] [place] [address] 32159- 1247 Mar, Generalized anxiety disorder F41.1 [place] [id number] [place] [address] 20741- 5161 Feb, Generalized anxiety disorder F41.1 and Major depressive disorder, recurrent episode, moderate F33.1 [place] [id number] [place] [address] 80138- 3724 Feb, [facility] [id number] [place] [address] 76903 -5096 Feb, Dysuria R30.0 and Acute cystitis with hematuria N30.01 [place] [id number] [place] [address] 27423- 4761 Jan, [facility] [id number] [place] [address] 17180- 7463 Jan, [place] [id number] [place] [address] 61007- 5360 Jan, [place] [id number] [place] [address] 07564- 3812 Jan, [facility] [id number] [place] [address] 55461 -8123 Jan, Wasp sting, accidental or unintentional, initial encounter T63.461A [place] [id number] [place] [address] 71679- 2656 Jan, Encounter for immunization Z23 [place] [id number] [place] [address] 17616- 1524 Jan, [place] [id number] [place] [address] 38587- 9626 Jan, [place] [id number] [place] [address] 93117- 9298 Dec, Generalized anxiety disorder F41.1 and Major depressive disorder, recurrent episode, moderate F33.1 [place] [id number] [place] [address] 58681- 9631 Dec, Routine gynecological examination Z01.419 ; Postmenopausal Z78.0 ; Screening breast examination Z12.39 ; Osteopenia M85.80 and Breast cancer screening Z12.39 [facility] [id number] [address]- 3893 20 Dec, 2015 [facility] [address] [address]- 3481 [address], 2015 [facility] [address] [address]- 9971 [address], 2015 [facility] [id number] [place] [address] 96209- 3270 [address], [address] [facility] [address] [place] [address]- 0262 [address], [address] [facility] [address] [address]- 2150 06 [address], 2015 [facility] [address] [address]- 8069 Nov, [facility] [address] [address] -[address] Nov, Cough R05 ; Other viral agents as the cause of diseases classified elsewhere B97.89 and Acute upper respiratory infection, unspecified J06.9 [facility] [address] [address]- 3871 Nov, [facility] [address] [address]- 8309 Nov, [facility] [address] [address]- 1435 Nov, [facility] [address] [address]- 3696 Nov, [facility] [address] [address]- 4315 Nov, [facility] [id number] [address]- 2587 Oct, [facility] [id number] [place] [address] 40360- 8472 18 [address], 2015 [facility] [address] [address]- 9754 Oct, [facility] [id number] [place] [address] 84808- 7325 Oct, Chronic pain syndrome G89.4 [place] [id number] [place] [address] 25846- 1681 Sep, Generalized anxiety disorder F41.1 and Major depressive disorder, recurrent episode, moderate F33.1 [place] [id number] [place] [address] 93437- 9948 Sep, [place] [id number] [place] [address] 46289- 3619 Sep, [place] [id number] [place] [address] 81991- 7685 Sep, Generalized anxiety disorder F41.1 [place] [id number] [place] [address] 06350- 6804 13 Sep, 2015 Cramp of both lower extremities R25.2 and Cervicalgia M54.2 [place] [id number] [place] [address] [phone] Sep, Generalized anxiety disorder F41.1 [place] [id number] [place] [address] [phone] Sep, [facility] [id number] [place] [phone] August, Rash R21 ; Itching L29.9 and Allergic response, subsequent encounter T78.40XD [place] [id number] [place], [place] [address] 07690- 0313 August, Primary insomnia F51.01 [facility] [id number] [place] [address] 28609 -4652 August, Rash R21 ; Itching L29.9 and Allergic response, initial encounter T78.40XA [facility] [address] [address] 40[address] August, [facility] [id number] [place] [address] 85415- 2844 August, Cramp of both lower extremities R25.2 [facility] [id number] [place] [address] 75281- 3075 August, Back pain M54.9 [facility] [id number] [place] [address] 87722- 3408 August, [facility] [id number] [place] [address] 48340- 3394 August, [facility] [id number] [place] [address] 64247 -9281 August, Cramp of both lower extremities R25.2 [facility] [id number] [place] [address] 15097- 3058 August, [facility] [id number] [place] [address] 08609- 0355 August, Syncope R55 ; Paroxysmal atrial fibrillation I48.0 ; Dementia without behavioral disturbance, unspecified dementia type F03.90 and Chronic pain syndrome G89.4 [facility] [id number] [address] 3275 August, Type 2 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 [facility] [address] [address] 1579 Jul, [facility] [id number] [place] [address] 52252- 6631 Jul, [facility] [address] [address] 9555 Jul, [facility] [address] [address] 1399 Jul, [facility] [address] [address]- 3878 Jul, [facility] [address] [address]- 6796 19 Jul, 2015 UTI (urinary tract infection) N39.0 [facility] [address] [address]- 8796 18 Jul, 2015 [facility] [address] [address]- 1334 18 Jul, 2015 Major depressive disorder, recurrent episode, moderate F33.1 and Generalized anxiety disorder F41.1 [facility] [address] [address]- 9316 Jul, Generalized anxiety disorder F41.1 [facility] [address] [address]- 3969 Jul, Diarrhea R19.7 [facility] [address] [address]- 5383 Jul, [facility] [address] [address]- 4063 Jun, [facility] [address] [address]- 4349 Jun, Eczema L30.9 [facility] [address] [address] 2546 Jun, [facility] [address] [address] 2540 17 Jun, 2015 COPD (chronic obstructive pulmonary disease) J44.9 [facility] [address] [address]- 9836 16 Jun, 2015 [facility] [address] [address]- 2543 02 Jun, 2015 Major depressive disorder, recurrent episode, moderate F33.1 and Generalized anxiety disorder F41.1 [facility] [address] [address]- 2255 May, [facility] [address] [address]- 4674 May, UTI (urinary tract infection) N39.0 [facility] [address] [address]- 0597 May, [facility] [id number] [place] [address] 16553- 8629 May, [facility] [address] [address] 7273 May, [facility] [id number] [place] [address] 25275- 6921 May, [facility] [address] [address]- 7335 Apr, Major depressive disorder, recurrent episode, moderate F33.1 and Generalized anxiety disorder F41.1 [facility] [address] [address]- 3889 Apr, COPD (chronic obstructive pulmonary disease) J44.9 [facility] [address] [address]- 6907 Apr, [facility] [address] [address]- 8145 Apr, Atrial flutter I48.92 [facility] [address] [address]- 7857 Apr, [facility] [address] [address] 8069 Apr, [facility] [address] [address] 5425 Mar, [facility] [address] [address] 7364 Mar, [facility] [id number] [address]- 8279 Mar, [facility] [id number] [place] [address] 35077- 3981 Mar, Hyperlipidemia E78.5 ; Type 2 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 ; Major depressive disorder, recurrent episode, moderate F33.1 and Chronic pain syndrome G89.4 [facility] [id number] [place] [address] 73006- 7158 Mar, [facility] [id number] [place] [address] 06465- 6256 Mar, [facility] [id number] [place] [address] 74165- 78[address] Mar, [facility] [id number] [place] [address] 11252- 8296 Mar, [facility] [id number] [place] [address] 54111- 9850 Feb, COPD (chronic obstructive pulmonary disease) J44.9 and Back pain M54.9 [facility] [id number] [place] [address] 71045- 8467 Feb, [facility] [id number] [place] [address] 03427- [address] Feb, [facility] [id number] [place] [address] 67955- [address] Feb, [facility] [id number] [address]- 4870 Feb, [facility] [id number] [place] [address] 13769- [address] Feb, [facility] [address] [address]- 3830 Feb, [facility] [id number] [place] [address] 97152- [address] Feb, [facility] [id number] [place] [address] 77640- 0326 Feb, [facility] [address] 35434- 5714 Feb, Diabetes E11.9 ; Back pain M54.9 and COPD (chronic obstructive pulmonary disease) J44.9 [facility] [address] [address]29- 0887 Jan, [facility] [address] 54900- 9477 Jan, Major depression, recurrent F33.9 and Generalized anxiety disorder F41.1 [facility] [address] 40504- 5824 Jan, Chronic pain G89.29 [facility] [address] 72673- 3575 Jan, [facility] [address] 73460- 1075 Jan, [facility] [address] 45062- 1028 Jan, [facility] [id number] [place] [address] 95844- 4769 Jan, [facility] [id number] [place] [address] 09237- 8398 Jan, Nicotine dependence F17.200 [facility] [id number] [place] [address] 80140- 4601 Jan, Nicotine dependence F17.200 and Back pain M54.9 [facility] [address] 21686- 2238 Jan, [facility] [id number] [place] [address] 24601- 3480 Dec, [facility] [address] 36855- 2330 25 Dec, 2014 Anxiety, generalized 300.02 and Major depression, recurrent 296.30 [facility] [address] [address]- 8340 [address], 2014 [facility] [address] [address]- 3239 21 Dec, 2014 [facility] [id number] [place] [address] 85196- 6674 17 Dec, 2014 [facility] [id number] [place] [address] 50520- 5346 15 Dec, 2014 [facility] [id number] [place] [address] 58613- 1669 14 Dec, 2014 [facility] [id number] [place] [address] 24879- 4617 11 Dec, 2014 [facility] [id number] [place] [address] 14573- 8532 10 Dec, 2014 [facility] [id number] [place] [address] 82956- 0222 08 Dec, [address] [facility] [id number] [place] [address] 19022- 5054 08 Dec, 2014 Routine gynecological examination V72.31 ; Breast cancer screening V76.10 and Family history of breast cancer in first degree relative V16.3 [facility] [address] [address]- 6729 03 Dec, 2014 [facility] [address] [address]- 0129 Dec, [facility] [id number] [place] [address] 75211- [address] Nov, [facility] [address] [address]- 0494 Nov, [facility] [id number] [place] [address] 59654- 9655 Nov, Poor balance 781.99 and Vascular dementia, uncomplicated 290.40 [facility] [id number] [place] [address] 32748- 7876 Nov, [facility] [id number] [place] [address] 63354- 1971 Nov, Major depression, recurrent 296.30 and Anxiety, generalized 300.02 [facility] [id number] [place] [address] 97610- 1161 Nov, [facility] [id number] [place] [address] 17757- [address] Nov, [facility] [id number] [place] [address] 45519- 5129 Nov, [facility] [id number] [place] [address] 54751- 5669 Nov, [facility] [id number] [place] [address] 51290- 1700 Nov, Vascular dementia, uncomplicated 290.[address] [facility] [id number] [place] [address] 08635- 0521 Nov, [facility] [id number] [place] [address] 58934- [address]01 Nov, [facility] [id number] [place] [address] 94724- 9374 Nov, [facility] [id number] [place] [address] 36419- 6340 Oct, [facility] [id number] [place] [address] 50961- [address] Oct, [facility] [id number] [place] [address] 19009- 9970 Oct, [facility] [id number] [place] [address] 27867- 6846 Oct, COPD (chronic obstructive pulmonary disease) [address] [facility] [address] [address]- 7214 Oct, Major depression, recurrent 296.30 and Anxiety, generalized 300.02 [facility] [address] [address]- 3475 Oct, [facility] [id number] [place] [address] 82729- [address]204 Oct, [facility] [id number] [place] [address] 71297- 3684 Oct, [facility] [id number] [place] [address] 35830- 8920 Sep, Lumbago 724.2 and Anxiety state, unspecified 300.00 [facility] [id number] [place] [address] 66463- 8676 Sep, [facility] [id number] [address]- 4909 Sep, [facility] [id number] [place] [address] 94433- 5568 August, [facility] [address] [address]- 0516 August, Major depression, recurrent 296.30 ; Anxiety, generalized 300.02 and No condition on Roscoe II V71.09 [facility] [address] [address]- 4637 August, [facility] [id number] [address]- 0684 August, [facility] [id number] [address]- [address]24 Jul, [facility] [address] [address]- 6598 Jul, [facility] [id number] [place] [address] [place] [address]- 7035 13 Jul, 2014 [facility] [place] [facility] [address] [id number] [place] [address]- 9991 30 Jun, 2014 [facility] [place] [facility] [address] [id number] [place] [address]- 0717 30 Jun, 2014 [facility] [place] [facility] [address] [id number] [place] [address]- 0931 27 Jun, 2014 [facility] [place] [facility] [address] [id number] [place] [address]- 8596 27 Jun, 2014 [facility] [place] [facility] [address] [id number] [place] [address]- 9157 26 Jun, 2014 [facility] [place] [facility] [address] [id number] [place] [address]- 5686 Jun, [facility] [place] [facility] [address] [id number] [place] [address]- 4160 Jun, [facility] [place] [facility] [address] [id number] [place] [address]- 2320 17 Jun, 2014 [facility] [place] [facility] [address] [id number] [place] [address]- 7497 Jun, [facility] [place] [facility] [address] [id number] [place] [address]- 4110 Jun, [facility] [place] [facility] [address] [id number] [place] [address]- 6450 10 Jun, 2014 [facility] [place] [facility] [address] [id number] [place] [address]- 6229 10 Jun, 2014 [facility] [place] [facility] [address] [id number] [place] [address]- 2089 07 Jun, 2014 [facility] [place] [facility] [address] [id number] [place] [address]- 4048 07 Jun, 2014 [facility] [place] [facility] [address] [id number] [place] [address]- 2720 02 Jun, 2014 [facility] [place] [facility] [address] [id number] [place] [address]- 4455 Jun, [facility] [place] [facility] [address] [id number] [place] [address]- 9566 May, 2014 [facility] [place] [facility] [address] [id number] [place] [address]- 9376 May, 2014 [facility] [place] [facility] [address] [facility] [id number] [place] [address]- 4925 May, 2014 [facility] [place] [facility] [address] [id number] [place] [address]- 8807 May, 2014 [facility] [place] [facility] [address] [id number] [place] [address]- 4345 May, 2014 [facility] [place] [facility] [address] [facility] [id number] [place] [address]- 3016 May, 2014 [facility] [place] [facility] [address] [facility] [id number] [place] [address]- 7501 May, 2014 [facility] [place] [facility] [address] [facility] [id number] [place] [address]- 0976 May, 2014 [facility] [place] [facility] [address] [facility] [id number] [place] [address]- 3758 May, 2014 [facility] [place] [facility] [address] [facility] [id number] [place] [address]- 5550 May, 2014 [facility] [place] [facility] [address] [facility] [id number] [address]- 2544 May, 2014 [facility] [place] [facility] [address] [facility] [id number] [place] [address]- 7262 May, 2014 [facility] [place] [facility] [address] [facility] [id number] [place] [address]- 5955 May, 2014 [facility] [place] [facility] [address] [facility] [id number] [place] [address]- 3286 May, 2014 [facility] [place] [facility] [address] [facility] [id number] [place] [address]- 3505 Apr, [facility] [address] [id number] [place] [address]- 8954 Apr, [facility] [address] [id number] [place] [address]- 1081 Apr, [facility] [address] [id number] [place] [address]- 6603 Apr, [facility] [address] [id number] [place] [address]- 8760 Apr, [facility] [address] [id number] [place] [address]- 3219 Apr[facility] [address] [id number] [place] [address]- 4964 Apr, [facility] [address] [id number] [place] [address]- 3484 Apr, [facility] [address] [id number] [place] [address]- 8457 Apr, [facility] [address] [id number] [place] [address]- 6435 Apr, [facility] [address] [id number] [place] [address]- 7401 Apr, [facility] [address] [id number] [place] [address]- 6895 Apr, [facility] [address] [id number] [place] [address]- 1703 Mar, [facility] [place] [facility] [address] [id number] [place] [address]- 2330 Mar, [facility] [place] [facility] [address] [id number] [place] [address]- 8181 Mar, [facility] [place] [facility] [address] [id number] [place] [address]- 2502 Mar, [facility] [place] [facility] [address] [id number] [place] [address]- 7332 Mar, [facility] [place] [facility] [address] [id number] [place] [address]- 1128 Mar, [facility] [place] [facility] [address] [id number] [place] [address]- 8710 Mar, [facility] [place] [facility] [address] [id number] [place] [address]- 3817 Mar, [facility] [place] [facility] [address] [id number] [place] [address]- 0700 15 Mar, 2014 [facility] [place] [facility] [address] [id number] [place] [address]- 6630 Mar, [facility] [place] [facility] [address] [id number] [place] [address]- 0681 15 Mar, 2014 [facility] [place] [facility] [address] [id number] [place] [address]- 6050 15 Mar, 2014 [facility] [place] [facility] [address] [id number] [place] [address]- 1776 Mar, [facility] [place] [facility] [address] [id number] [place] [address]- 3855 Mar, [facility] [place] [facility] [address] [id number] [place] [address]- 7464 Mar, [facility] [place] [facility] [address] [id number] [place] [address]- 5038 Mar, [facility] [place] [facility] [address] [id number] [place] [address]- 5807 Mar, [facility] [place] [facility] [address] [id number] [place] [address]- 0312 Mar, [facility] [place] [facility] [address] [id number] [place] [address]- 6936 Mar, [facility] [place] [facility] [address] [id number] [address]- 0823 Mar, [facility] [place] [facility] [address] [id number] [place] [address]- 8088 Feb, [facility] [place] [facility] [address] [id number] [place] [address]- 7078 Feb, [facility] [place] [facility] [address] [facility] [id number] [place] [address]- 7340 Feb, [facility] [place] [facility] [address] [id number] [place] [address]- 5096 Feb, [facility] [place] [facility] [address] [id number] [place] [address] Feb, [facility] [place] [facility] [address] [id number] [place] [address] Feb, [facility] [place] [facility] [address] [facility] [id number] [place] [address] Feb, [facility] [place] [facility] [address] [id number] [place] [address] 113[address] Feb, [facility] [place] [facility] [address] [id number] [place] [address] Feb, [facility] [place] [facility] [address] [facility] [id number] [place] [address] Feb, [facility] [place] [facility] [address] [id number] [place] [address] 28[address] Feb, [facility] [place] [facility] [address] [id number] [address] Feb, [facility] [place] [facility] [address] [id number] [place] [address] Feb, [facility] [place] [facility] [address] [facility] [id number] [place] [address] Feb, [facility] [place] [facility] [address] [facility] [id number] [place] [address] Feb, [facility] [place] [facility] [address] [id number] [place] [address] 6198 Feb, [facility] [place] [facility] [address] [id number] [place] [address] 39[address] Feb, [facility] [place] [facility] [address] [id number] [place] [address] Jan, [facility] [place] [facility] [address] [id number] [place] [address]686 Jan, [facility] [place] [facility] [address] [id number] [place] [address] 58[address] Jan, [facility] [place] [facility] [address] [id number] [place] [address] 89[address] Jan, [facility] [place] [facility] [address] [id number] [place] [address] 67[address] Jan, [facility] [place] [facility] [address] [id number] [place] [address]- 6[address] Jan, [facility] [place] [facility] [address] [id number] [place] [address] 2539 Jan, [facility] [place] [facility] [address] [id number] [place] [address] 9[address] Jan, [facility] [place] [facility] [address] [id number] [place] [address] Jan, [facility] [place] [facility] [address] [id number] [place] [address]240 Jan, [facility] [place] [facility] [address] [id number] [place] [address] 15[address] Jan, [facility] [place] [facility] [address] [id number] [place] [address] Dec, [facility] [place] [facility] [address] [id number] [place] [address]- [address]120 Dec, [facility] [place] [facility] [address] [id number] [place] [address] 4067 Nov, [facility] [place] [facility] [address] [id number] [place] [address] Nov, [facility] [place] [facility] [address] [id number] [place] [address]- [address]396 Nov, [facility] [place] [facility] [address] [id number] [place] [address]378 Nov, [facility] [place] [facility] [address] [id number] [place] [address] Nov, [facility] [place] [facility] [address] [id number] [place] [address] Nov, [facility] [place] [facility] [address] [id number] [place] [address] Nov, [facility] [place] [facility] [address] [id number] [place] [address] Oct, [facility] [place] [facility] [address] [id number] [place] [address]329 Oct, [facility] [place] [facility] [address] [id number] [place] [address] 46[address] Oct, [facility] [place] [facility] [address] [id number] [place] [address] 45[address] Oct, [facility] [place] [facility] [address] [id number] [place] [address]39 Sep, [facility] [place] [facility] [address] [id number] [place] [address] 92[address] Sep, [facility] [place] [facility] [address] [id number] [place] [address] Sep, [facility] [place] [facility] [address] [id number] [place] [address] Sep, [facility] [place] [facility] [address] [id number] [place] [address]- 38[address] Sep, [facility] [place] [facility] [address] [id number] [place] [address]- [address] 17 Sep, 2013 [facility] [place] [facility] [address] [id number] [place] [address]- 35[address] Sep, [facility] [place] [facility] [address] [id number] [place] [address]- 9472 Sep, [facility] [place] [facility] [address] [id number] [place] [address]- 3971 Sep, [facility] [place] [facility] [address] [id number] [place] [address]- 9914 Sep, [facility] [place] [facility] [address] [id number] [place] [address]- 7324 Sep, [facility] [place] [facility] [address] [id number] [place] [address]- [address]165 Sep, [facility] [place] [facility] [address] [id number] [place] [address]- 2416 Sep, [facility] [facility] [address] [id number] [place] [address] Sep, [facility] [place] [facility] [address] [id number] [place] [address] August, [facility] [place] [facility] [address] [id number] [place] [address]192 August, [facility] [place] [facility] [address] [id number] [place] [address]017 August, [facility] [place] [facility] [address] [id number] [place] [address] 3316 August, [facility] [place] [facility] [address] [id number] [place] [address] 4615 August, [facility] [place] [facility] [address] [id number] [place] [address]- 2920 August, [facility] [place] [address] [id number] [place] [address] 3826 August, [facility] [place] [facility] [address] [id number] [place] [address] 3731 August, [facility] [address] [id number] [place] [address] 4275 August, [facility] [address] [id number] [place] [address] 357[address] August, [facility] [address] [id number] [place] [address] 2433 August, [facility] [address] [id number] [place] [address] 2014 August, [facility] [address] [id number] [place] [address] 1716 August, [facility] [address] [id number] [place] [address]- 7481 August, [facility] [address] [id number] [place] [address]- 8286 August, [facility] [address] [id number] [place] [address]- 6812 August, [facility] [address] [id number] [place] [address]- 2751 August, [facility] [address] [id number] [place] [address]- 9833 August, [facility] [address] [id number] [place] [address]- 2658 August, [facility] [address] [id number] [place] [address]- 8826 Jul, [facility] [facility] [address] [id number] [place] [address]- 2215 Jul, [facility] [address] [id number] [place] [address]- 3890 Jul, [facility] [address] [id number] [place] [address]- 6267 08 Jul, 2013 [facility] [address] [id number] [place] [address]- 1336 Jun, [facility] [facility] [address] [id number] [place] [address]- 7404 Jun, [facility] [facility] [address] [id number] [place] [address]- 5267 Jun, [facility] [place] [facility] [address] [id number] [place] [address]- 8441 24 Jun, 2013 [facility] [facility] [address] [id number] [place] [address]- 5123 Jun, [facility] [place] [facility] [address] [id number] [place] [address]- 7475 17 Jun, 2013 [facility] [address] [id number] [place] [address]- 9991 Jun, [facility] [address] [id number] [place] [address]- 3736 Jun, [facility] [facility] [address] [id number] [place] [address]- 1678 Jun, [facility] [address] [id number] [place] [address]- 9541 Jun, [facility] [address] [id number] [place] [address]- 3351 May, [facility] [address] [id number] [place] [address]- 0028 May, [facility] [address] [id number] [place] [address]- 7905 May, [facility] [address] [id number] [place] [address]- 3170 May, [facility] [address] [id number] [place] [address]- 6846 May, [facility] [address] [id number] [place] [address]- 5740 May, [facility] [address] [id number] [place] [address]- 5056 May, [facility] [address] [id number] [place] [address]- 2546 May, [facility] [address] [id number] [place] [address]- 1166 May, [facility] [address] [id number] [place] [address]- 2859 18 May, 2013 [facility] [address] [id number] [place] [address]- 2736 May, [facility] [address] [facility] [id number] [place] [address]- 7847 17 May, 2013 [facility] [address] [id number] [place] [address]- 3618 May, [facility] [address] [id number] [place] [address]- 0948 May, [facility] [address] [facility] [id number] [place] [address]- 9348 10 May, 2013 [facility] [address] [id number] [place] [address]- 6907 07 May, 2013 [facility] [address] [id number] [place] [address]- 2543 May, [facility] [address] [id number] [place] [address]- 2824 Apr, [facility] [address] [id number] [place] [address]- 9776 15 Apr, 2013 [facility] [address] [id number] [place] [address]- 5000 15 Apr, 2013 [facility] [address] [id number] [place] [address]- 1247 09 Apr, 2013 [facility] [address] [id number] [place] [address]- 6168 Apr, [facility] [address] [id number] [place] [address]- 4806 Apr, [facility] [address] [id number] [place] [address]- 7750 Apr, [facility] [address] [id number] [place] [address]- 7669 Mar, [facility] [address] [id number] [place] [address]- 4640 Mar, [facility] [address] [id number] [place] [address]- 5203 Mar, [facility] [address] [id number] [place] [address]- 2201 Mar, [facility] [address] [id number] [place] [address]- 2601 Mar, [facility] [address] [id number] [place] [address]- 2387 Mar, [facility] [address] [facility] [id number] [place] [address]- 7030 Mar, [facility] [address] [id number] [place] [address]- 3796 Mar, [facility] [address] [id number] [place] [address]- 0218 Mar, [facility] [address] [id number] [place] [address]- 1397 Mar, [facility] [address] [id number] [place] [address]- 2736 Mar, [facility] [address] [id number] [place] [address]- 8918 Feb, [facility] [address] [id number] [place] [address]- 3885 Feb, [facility] [address] [id number] [place] [address]- 2232 Feb, [facility] [address] [id number] [place] [address]- 8232 Feb, [facility] [address] [id number] [place] [address]- 3566 Feb, [facility] [address] [id number] [place] [address]- 8258 Feb, [facility] [address] [id number] [place] [address]- 4957 15 Feb, 2013 [facility] [address] [id number] [place] [address]- 1895 14 Feb, 2013 [facility] [address] [id number] [place] [address]- 3978 14 Feb, 2013 [facility] [address] [id number] [place] [address]- 2808 Feb, [facility] [address] [id number] [place] [address]- 4385 Feb, [facility] [address] [id number] [place] [address]- 9939 Feb, [facility] [address] [id number] [address]- 8477 Feb, [facility] [address] [id number] [place] [address]- 4660 Feb, [facility] [address] [id number] [place] [address]- 8284 05 Feb, 2013 [facility] [address] [id number] [place] [address]- 4121 05 Feb, 2013 [facility] [address] [id number] [place] [address]- 2868 Jan, [facility] [address] [id number] [place] [address]- 8532 Jan, [facility] [address] [id number] [place] [address]- 0305 Jan, [facility] [address] [id number] [place] [address]- 9741 Jan, [facility] [address] [id number] [place] [address]- 2136 Jan, [facility] [address] [id number] [place] [address]- 1844 Jan, [facility] [address] [id number] [place] [address]- 3416 Jan, [facility] [address] [id number] [place] [address]- 1539 Jan, [facility] [address] [id number] [place] [address]- 7501 10 Jan, 2013 [facility] [address] [id number] [place] [address]- 8556 27 Dec, 2012 [facility] [address] [id number] [place] [address]- 6331 20 Dec, 2012 [facility] [address] [id number] [place] [address]- 9278 19 Dec, 2012 [facility] [address] [id number] [place] [address]- 2597 10 Dec, 2012 [facility] [address] [id number] [place] [address]- 2544 04 Dec, 2012 [facility] [address] [id number] [place] [address]- 4112 03 Dec, 2012 [facility] [address] [id number] [place] [address]- 1966 Nov, [facility] [address] [id number] [place] [address]- 9978 Nov, [facility] [address] [id number] [place] [address]- 4400 Nov, [facility] [address] [id number] [place] [address]- 5603 Nov, [facility] [address] [id number] [place] [address]- 7607 Nov, [facility] [address] [id number] [place] [address]- 4847 Nov, [facility] [address] [id number] [place] [address]- 0754 Nov, [facility] [address] [id number] [place] [address]- 7931 Nov, [facility] [address] [id number] [place] [address]- 6388 Nov, [facility] [address] [id number] [place] [address]- 2469 Nov, [facility] [address] [id number] [place] [address]- 8081 Oct, [facility] [address] [id number] [place] [address]- 4840 Oct, [facility] [address] [id number] [place] [address]- 3846 Oct, [facility] [address] [id number] [place] [address]- 5405 Oct, [facility] [address] [id number] [place] [address]- 6744 Oct, [facility] [address] [id number] [place] [address]- 0381 Oct, [facility] [address] [id number] [place] [address]- 0404 Oct, [facility] [address] [id number] [place] [address]- 9351 Oct, [facility] [address] [id number] [place] [address]- 4968 Sep, [facility] [address] [id number] [place] [address]- 4667 Sep, [facility] [address] [id number] [place] [address]- 1371 Sep, [facility] [address] [id number] [place] [address]- 4051 Sep, [facility] [address] [id number] [place] [address]- 0848 Sep, [facility] [address] [id number] [place] [address]- 4519 Sep, [facility] [address] [id number] [place] [address]- 8535 Sep, [facility] [address] [id number] [place] [address]- 5060 Sep, [facility] [address] [id number] [place] [address]- 5431 August, [facility] [address] [id number] [place] [address]- 4319 August, [facility] [address] [id number] [place] [address]- 1007 August, [facility] [address] [id number] [place] [address]- 4920 August, [facility] [address] [id number] [place] [address]- 3874 August, [facility] [address] [id number] [place] [address]- 2734 Jul, [facility] [address] [id number] [place] [address]- 9372 Jul, [facility] [address] [id number] [place] [address]- 5985 Jul, [facility] [address] [id number] [place] [address]- 2495 Jul, [facility] [address] [facility] [id number] [place] [address]- 7770 Jul, [facility] [address] [id number] [place] [address]- 3233 18 Jun, 2012 [facility] [address] [id number] [place] [address]- 8145 18 Jun, 2012 [facility] [address] [facility] [id number] [place] [address]- 1038 15 Jun, 2012 [facility] [address] [id number] [address]- 7700 14 Jun, 2012 [facility] [address] [facility] [id number] [place] [address]- 8730 Jun, [facility] [address] [facility] [id number] [place] [address]- 8562 Jun, [facility] [address] [facility] [id number] [place] [address]- 3849 Jun, [facility] [address] [facility] [id number] [place] [address]- 9394 Jun, [facility] [address] [facility] [id number] [place] [address]- 0134 Jun, [facility] [address] [id number] [place] [address]- 1113 May, [facility] [address] [facility] [id number] [place] [address]- 0319 May, [facility] [address] [facility] [id number] [place] [address]- 8545 May, [facility] [address] [id number] [place] [address]- 7800 May, [facility] [address] [id number] [place] [address]- 2838 Apr, [facility] [address] [id number] [place] [address]- 0203 Apr, [facility] [address] [id number] [place] [address]- 4502 Apr, [facility] [address] [id number] [place] [address]- 1313 Apr, [facility] [address] [id number] [place] [address]- 4066 Apr, [facility] [address] [id number] [place] [address]- 6289 Apr, [facility] [address] [id number] [place] [address]- 0836 Apr, [facility] [address] [id number] [place] [address]- 0307 Mar, [facility] [place] [id number] Mar, [facility] [address] [id number] [place] [address]- 7243 Mar, [facility] [address] [id number] [place] [address]- 254 Mar, [facility] [address] [id number] [place] [address]- 2544 Mar, [facility] [address] [id number] [place] [address]- 8073 Mar, [facility] [address] [id number] [place] [address]- 4879 Mar, [facility] [address] [id number] [place] [address]- 3585 Mar, [facility] [place] [facility] [address] [id number] [place] [address]- 0472 Mar, [facility] [place] [facility] [address] [id number] [place] [address]- 3246 Mar, [facility] [place] [facility] [address] [id number] [place] [address]- 2737 Mar, [facility] [place] [facility] [address] [id number] [place] [address]- 1675 Mar, [facility] [place] [facility] [address] [id number] [place] [address]- 0032 Mar, [facility] [place] [facility] [address] [id number] [place] [address]- 5330 Mar, [facility] [place] [facility] [address] [id number] [place] [address]- 4127 Mar, [facility] [place] [facility] [address] [id number] [place] [address]- 1796 Mar, [facility] [place] [facility] [address] [id number] [place] [address]- 7853 Mar, [facility] [place] [facility] [address] [id number] [place] [address]- 6012 Feb, [facility] [place] [facility] [address] [id number] [place] [address]- 1203 Feb, [facility] [place] [facility] [address] [id number] [place] [address]- 9414 Feb, [facility] [place] [facility] [address] [id number] [place] [address]- 8793 Feb, [facility] [place] [facility] [address] [id number] [place] [address] Feb, [facility] [place] [facility] [address] [id number] [place] [address] Feb, [facility] [place] [facility] [address] [id number] [place] [address] Feb, [facility] [place] [facility] [address] [id number] [place] [address] Feb, [facility] [place] [facility] [address] [id number] [address] Feb, [facility] [place] [facility] [address] [id number] [place] [address] Feb, [facility] [place] [facility] [address] [id number] [place] [address] 6096 Feb, [facility] [place] [facility] [address] [id number] [place] [address], [place] [address]- [address] Feb, [facility] [place] [facility] [address] [id number] [place] [address] 18[address] Feb, [facility] [place] [facility] [address] [facility] [id number] [place] [address] Feb, [facility] [place] [facility] [address] [id number] [place] [address] Feb, [facility] [place] [facility] [address] [id number] [place] [address]- [address] Feb, [facility] [place] [facility] [address] [facility] [id number] [place] [address] Jan, [facility] [place] [facility] [address] [id number] [place] [address] Jan, [facility] [place] [facility] [address] [id number] [place] [address] Jan, [facility] [place] [facility] [address] [id number] [place] [address] Jan, [facility] [place] [facility] [address] [facility] [id number] [place] [address]- [address] Jan, [facility] [place] [facility] [address] [facility] [id number] [place] [address] Jan, [facility] [place] [facility] [address] [id number] [place] [address]- 1356 24 Jan, 2012 [facility] [place] [facility] [address] [id number] [place] [address] 24 Jan, 2012 [facility] [place] [facility] [address] [id number] [place] [address]- [address]96 Jan, [facility] [place] [facility] [address] [id number] [place] [address]- 0682 Jan, [facility] [place] [facility] [address] [id number] [place] [address] 2451 Jan, [facility] [place] [facility] [address] [id number] [place] [address]114 Jan, [facility] [place] [facility] [address] [id number] [place] [address]- 5861 Jan, [facility] [place] [facility] [address] [id number] [place] [address]- 6[address] Jan, [facility] [place] [facility] [address] [id number] [place] [address]- [address]200 Jan, [facility] [place] [facility] [address] [id number] [place] [address]- 6588 05 Jan, 2012 [facility] [place] [facility] [address] [id number] [place] [address] 9[address] Jan, [facility] [place] [facility] [address] [id number] [place] [address]- [address]9 21 Dec, 2011 [facility] [place] [facility] [address] [id number] [place] [address] 4410 20 Dec, 2011 [facility] [place] [facility] [address] [id number] [place] [address]- 4696 18 Dec, 2011 [facility] [place] [facility] [address] [id number] [place] [address]- [address]806 18 Dec, 2011 [facility] [place] [facility] [address] [id number] [place] [address] 8994 10 Dec, 2011 [facility] [place] [facility] [address] [id number] [place] [address] 8616 10 Dec, 2011 [facility] [place] [facility] [address] [id number] [place] [address]- 2916 10 Dec, 2011 [facility] [place] [facility] [address] [id number] [place] [address] 7316 Dec, [facility] [place] [facility] [address] [id number] [place] [address] Nov, [facility] [place] [facility] [address] [id number] [place] [address] 8661 Nov, [facility] [place] [facility] [address] [id number] [place] [address]- 1327 Nov, [facility] [place] [facility] [address] [id number] [place] [address]- 6[address] Nov, [facility] [place] [facility] [address] [id number] [place] [address]- 1854 Nov, [facility] [place] [facility] [address] [id number] [place] [address]- 5677 Nov, [facility] [place] [facility] [address] [id number] [place] [address]- 6565 Oct, [facility] [place] [facility] [address] [id number] [place] [address]- 9947 Oct, [facility] [place] [facility] [address] [id number] [place] [address]- 2544 Oct, [facility] [place] [facility] [address] [id number] [place] [address]- 2196 Oct, [facility] [place] [facility] [address] [id number] [place] [address]- 3128 Oct, [facility] [place] [facility] [address] [id number] [place] [address]- 5966 Oct, [facility] [place] [facility] [address] [id number] [place] [address]- 8156 Oct, [facility] [place] [facility] [address] [id number] [place] [address]- 7799 Sep, [facility] [place] [facility] [address] [id number] [place] [address]- 3546 Sep, [facility] [place] [facility] [address] [id number] [place] [address]- 6802 Sep, [facility] [place] [facility] [address] [id number] [place] [address]- 3110 Sep, [facility] [place] [facility] [address] [id number] [place] [address]- 6760 Sep, [facility] [place] [facility] [address] [id number] [place] [address]- 7205 15 Sep, 2011 [facility] [place] [facility] [address] [id number] [place] [address]- 1412 Sep, [facility] [place] [facility] [address] [id number] [place] [address]- 2679 Sep, [facility] [place] [facility] [address] [id number] [place] [address]- 2536 Sep, [facility] [place] [facility] [address] [id number] [place] [address]- 9916 Sep, [facility] [place] [facility] [address] [id number] [place] [address]- 6985 August, [facility] [place] [facility] [address] [id number] [place] [address]- 4387 August, [facility] [place] [facility] [address] [id number] [place] [address]- 9339 August, [facility] [place] [facility] [address] [id number] [place] [address]- 4183 August, [facility] [place] [facility] [address] [id number] [place] [address]- 0036 August, [facility] [place] [facility] [address] [id number] [place] [address]- [address] Jul, [facility] [place] [facility] [address] [id number] [place] [address]- 4633 Jul, [facility] [place] [facility] [address] [id number] [place] [address]- 7450 Jul, [facility] [place] [facility] [address] [id number] [place] [address]- 5699 Jul, [facility] [address] [id number] [place] [address] Jul, [facility] [place] [facility] [address] [id number] [place] [address] Jul, [facility] [address] [id number] [place] [address] Jul, [facility] [address] [id number] [place] [address] Jun, [facility] [place] [facility] [address] [id number] [place] [address] Jun, [facility] [place] [facility] [address] [id number] [place] [address] Jun, [facility] [place] [facility] [address] [id number] [place] [address] Jun, [facility] [place] [facility] [address] [id number] [address] Jun, [facility] [place] [facility] [address] [id number] [place] [address] May, [facility] [place] [facility] [address] [id number] [place] [address] May, [facility] [place] [facility] [address] [id number] [place] [address] May, [facility] [place] [facility] [address] [id number] [place] [address] May, [facility] [place] [facility] [address] [id number] [place] [address] May, [facility] [place] [facility] [address] [id number] [place] [address] May, [facility] [place] [facility] [address] [id number] [place] [address] Apr, [facility] [place] [facility] [address] [id number] [place] [address] Mar, [facility] [place] [facility] [address] [id number] [place] [address] Feb, [facility] [place] [facility] [address] [id number] [place] [address] Feb, [facility] [place] [facility] [address] [id number] [place] [address] Feb, [facility] [place] [facility] [address] [id number] [place] [address] Feb, [facility] [place] [facility] [address] [id number] [place] [address] Jan, [facility] [place] [facility] [address] [facility] [id number] [place] [address] Jan, [facility] [place] [facility] [address] [id number] [place] [address] Jan, [facility] [place] [facility] [address] [id number] [place] [address] 24 Jan, 2011 [facility] [place] [facility] [address] [id number] [place] [address]65 14 Jan, 2011 [facility] [place] [facility] [address] [facility] [id number] [place] [address] Dec, [facility] [place] [facility] [address] [id number] [place] [address] Oct, [facility] [place] [facility] [address] [id number] [place] [address] August, [facility] [place] [facility] [address] [id number] [place] [address] 29 Mar, 2010 [facility] [place] [facility] [address] [id number] [place] [address] 27 Mar, 2010 [facility] [place] [facility] [address] [id number] [place] [address] 16 Mar, 2010 [facility] [place] [facility] [address] [id number] [place] [address] 15 Mar, 2010 [facility] [place] [facility] [address] [id number] [place] [address] 15 Mar, 2010 [facility] [place] [facility] [address] [id number] [place] [address] 08 Mar, 2010 [facility] [place] [facility] [address] [id number] [place] [address] Mar, [facility] [place] [facility] [address] [id number] [place] [address] Feb, [facility] [place] [facility] [address] [id number] [place] [address] Feb, [facility] [place] [facility] [address] [id number] [place] [address] Feb, [facility] [place] [facility] [address] [id number] [place] [address] Jan, [facility] [place] [facility] [address] [id number] [place] [address] Jan, [facility] [place] [facility] [address] [id number] [place] [address] Jan, [facility] [place] [facility] [address] [id number] [place] [address] Nov, [facility] [place] [facility] [address] [id number] [place] [address] 14 Sep, 2009 [facility] [place] [facility] [address] [id number] [place] [address] August, [facility] [place] [facility] [address] [id number] [place] [address] 30 Mar, 2009 [facility] [place] [facility] [address] [facility] [id number] [place] [address] Mar, [facility] [place] [facility] [address] [id number] [place] [address] 17 Feb, 2009 [facility] [place] [facility] [address] [id number] [place] [address] Feb, [facility] [place] [facility] [address] [id number] [place] [address] Feb, [facility] [place] [facility] [address] [facility] [id number] [place] [address] Feb, [facility] [place] [facility] [address] [id number] [place] [address] Feb, [facility] [place] [facility] [address] [id number] [place] [address] 27 Jan, 2009 [facility] [place] [facility] [address] [id number] [place] [address] Jan, [facility] [place] [facility] [address] [id number] [place] [address] Jan, [facility] [place] [facility] [address] [id number] [place] [address] Jan, [facility] [place] [facility] [address] [id number] [place] [address] Nov, [facility] [place] [facility] [address] [facility] [id number] [place] [address] 16 Sep, 2008 [facility] [place] [facility] [address] [id number] [place] [address] August, [facility] [place] [facility] [address] [facility] [id number] [place] [address] Jul, [facility] [address] [facility] [id number] [place] [address] May, IMMUNIZATIONS No Known Immunizations SOCIAL HISTORY Never Assessed REASON FOR VISIT fatigued x 3 days. Weak. Cannot stay awake. PLAN OF CARE Activity Details Follow Up prn Reason: VITAL SIGNS Height 64 in 2016-12-05 Weight 162.3 lbs 2016-12-05 Temperature 98.1 degrees Fahrenheit 2016-12-05 Heart Rate 74 bpm 2016-12-05 Respiratory Rate 20 2016-12-05 BMI 27.86 kg/m2 2016-12-05 Blood pressure systolic 94 mmHg 2016-12-05 Blood pressure diastolic 58 mmHg 2016-12-05 MEDICATIONS Medication Instructions Dosage Frequency Start Date End Date Duration Status Fluticasone Propionate 50 MCG/ACT Nasally 2 times a day 2 sprays in each nostril 12h Active Singulair 10 MG Orally Once a day take 1 tablet (10 mg) by oral route once daily in the evening 24h Oct, Active Abilify 5 MG Orally Once a day 1 tablet 24h Oct, 30 day(s) Active Cetirizine HCl 10 MG Orally Once a day 1 tablet as needed 24h Active Symbicort 160-4.5 MCG/ACT INHALE 2 PUFFS TWICE DAILY, IN THE MORNING AND IN THE EVENING 90 Active HydrOXYzine HCl 25 MG Orally three times a day 1 tablet as needed 8h 30 days Active Topamax 25 MG Orally Twice a day 1 AM, 2 hs 12h Active Namenda 10 MG TAKE 1 TABLET ONE TIME DAILY 90 Active Trazodone HCl 150 MG Orally Once a day 1 tablet at bedtime as needed 24h Dec, 30 days Active Ropinirole HCl 2 MG TAKE 1 TABLET ONE TIME DAILY AT BEDTIME 90 Active Toprol XL 25 MG Orally Once a day 1 tablet 24h Active Omeprazole 40 MG Orally Once a day 1 capsule 24h Active Nitroglycerin 0.4 MG Active Albuterol Sulfate 2.5 mg /3 mL (0.083 %) 1 Each by Inhalation route every 4 hours for cough and wheeze PRN for wheezing or cough Jun, Active Ambien 5 MG Orally Once a day 1 tablet at bedtime 24h Jul, 30 days Active Tiotropium [place] Monohydrate 18 MCG Inhalation Once a day 1 capsule 24h Active Baclofen 10 mg Orally 2 times a day 1 tablet with food or milk 12h 24 May, 2016 30 day(s) Active Zofran ODT 4 MG Orally every 4 hrs 1 tablet on the tongue and allow to dissolve 4h Jul, 1 days Active Benefiber - Active Aricept 10 MG TAKE 1 TABLET ONE TIME DAILY 90 Active Ventolin HFA 108 (90 Base) MCG/ACT INHALE 2 PUFFS EVERY 4 HOURS NEEDED 16 Active Gabapentin 600 MG TAKE 1 TABLET THREE TIMES DAILY (CHANGE IN DIRECTIONS) 90 Active Primidone 250mg Orally Three times a day 1 tablet 8h Active Lomotil 2.5-0.025 mg Orally Four times a day TWO TABLETS 6h 30 Active Welchol 3.75 GM Orally Once a day 1 packet mixed with water with a meal 24h Active Xanax 0.5 MG Orally Three times a day 1 tablet 8h 20 Mar, 2016 30 days Active Abilify 20 MG Orally Once a day 1 tablet 24h 10 Jul, 2016 30 days Active Trintellix 20 MG Orally Once a day 1 tablet 24h Dec, 30 days Active Trospium Chloride 20 MG Orally Once a day 1 tablet at bedtime on an empty stomach 24h Active Myrbetriq 50 MG Orally Once a day 1 tablet 24h Active Alendronate Sodium 70 MG TAKE 1 TABLET EVERY WEEK 84 Active Oxygen 5 inhalation all the time Active Prednisone Active Simvastatin 20mg Orally Once a day 1 tablet in the evening 24h Active Eliquis 5 MG Orally 2 times a day 12h Active Xolair 150 mg inject 1.2 milliliters (150 mg) by subcutaneous route every 4 weeks Sep, Active RESULTS No Results PROCEDURES Procedure Date Ordered Result Body Site [facility] Dec 05, 2016 Hemoglobin Test Send Out 0 dollar Dec 05, 2016 [facility] VISIT ESTABLISHED PATIENT Dec 05, 2016 ANY, ROUTINE* Dec 05, 2016 INSTRUCTIONS MEDICATIONS ADMINISTERED No Known Medications [...]
[2017-09-11] MEDS ORDERED: LIDOCAINE 1% INJ 20 ML 20 ML VIAL ONE (09:21)
[2017-09-11] MEDS ORDERED: BUPIVACAINE 0.5% 30 ML (SENSORCAINE) VIAL ONE (09:21)
[2017-09-11] MEDS ORDERED: ONDANSETRON 4 MG/2 ML (SDV) Z0FRAN ONE ×2 (09:26→10:16)
[2017-09-11] MEDS ORDERED: FAMOTIDINE 20MG/2ML IV (PEPCID) ONE (09:26)
[2017-09-11] MEDS ORDERED: proPOfol 200 MG/20 ML (DIPRIVAN) VIAL IV ONE (09:48)
[2017-09-11] MEDS ORDERED: fentaNYL INJECTION 100 MCG/2 ML AMP ONE (09:49)
[2017-09-11] MEDS ORDERED: MIDAZOLAM 2 MG/2 ML (VERSED) VIAL ONE (09:49)
--- NOTE | 2017-09-11 09:53 | Progress Note-Pre Operative ---
Pre-Operative Progress Note H&P Reviewed The H&P was reviewed, patient examined and no changes noted. Date Seen by Provider: Sep 11, 2017 Time Seen by Provider: 09:53 Date H&P Reviewed: Sep 11, 2017 Time H&P Reviewed: 09:53 Pre-Operative Diagnosis: left upper extremity lesion IVAN TAVERA DO Sep 11, 2017 09:53
[2017-09-11] MEDS ORDERED: FAMOTIDINE 20MG/2ML IV (PEPCID) IV ONE (10:00)
[2017-09-11] MEDS ORDERED: ONDANSETRON 4 MG/2 ML (SDV) Z0FRAN IV ONE (10:00)
[2017-09-11] MEDS ORDERED: MIDAZOLAM 2 MG/2 ML (VERSED) VIAL IV ONE (10:00)
[2017-09-11] MEDS ORDERED: SEVOFLURANE (ULTANE) 15 ML INHAL SOLN ONE ×5 (10:16→11:31)
--- NOTE | 2017-09-11 11:33 | Progress Note-Post Operative ---
Post-Operative Progess Note Surgeon (s)/Baby Formula Worker (s) Surgeon IVAN TAVERA DO Baby Formula Worker: na Pre-Operative Diagnosis left upper extremity lesion Post-Operative Diagnosis same Procedure & Operative Findings Date of Procedure 09/11/17 Procedure Performed/Findings excision lesion left upper extremity 7x4cm Anesthesia Type gen Estimated Blood Loss Estimated blood loss (mL): min Specimens/Packing Specimens Removed skin lesion IVAN TAVERA DO Sep 11, 2017 11:33
[2017-09-11] MEDS ORDERED: ACHD5005 PO (11:36)
--- NOTE | 2017-09-11 11:39 | Discharge Inst-Simple/Standard ---
Discharge Inst-Standard Discharge Medications New, Converted or Re-Newed RX: RX on Chart Patient Instructions/Follow Up Plan of Care/Instructions/FU: 2 weeks Hien start eliquis in 2 days Activity as Tolerated: No Discharge Diet: Regular Diet Other Inst to Patient Follow up Appt: Make appointment for 2 week. Instructions: No lifting greater than 10 pounds. Keep left arm straight, to keep stress off of incision. No strenuous activity. May shower in 24 hours, no tub bath or soaking. Use incentive spirometer at home as directed. No Smoking Skin/Wound Care: May remove bandages in 48 hours. Keep arm splinted for 5 days, changing bandage daily. Symptoms to Report: Appetite Changes, Extremity Discoloration, Numbness/Tingling, Swelling Increased , Bleeding Excessive, Eyesight Changes, Pain Increased, Urine Color Change, Constipation(Persistent), Fever over 101 degree F, Pain/Pressure in chest, Urinating Difficulty, Cough Up/Vomit Blood, Heart Beat Irreg/Pounding, Pain/ Pressure in jaw, Vaginal Bleeding Increase, Cramps in feet or legs, Lightheadedness, Pain/Pressure in shoulder, Diarrhea(Persistent), Memory Changes Suddenly, Questions/Concerns, Weight gain consecutive days, Dizziness/ Fainting, Nausea/Vomiting, Shortness of Breath, Weight gain over 2 pounds If questions or concerns contact your physician Or seek help at emergency department. IVAN TAVERA DO Sep 11, 2017 11:39
[2017-09-11] MEDS ORDERED: HYDROcodone/APAP 5 MG/325 MG (LORTAB) TAB PO PRN (11:45)
[2017-09-11] MEDS ORDERED: morphine INJ 10 MG/ML 1ML (SYR OR VIAL) ONE (12:00)
[2017-09-11] MEDS: morphine INJ 10 MG/ML 1ML (SYR OR VIAL) IVP PRN ×2 (12:03→12:10)
[2017-09-11] MEDS ORDERED: ONDANSETRON 4 MG/2 ML (SDV) Z0FRAN IVP PRN (12:15)
[2017-09-11 12:40] VITALS: BP 111/70
[2017-09-11 13:10] VITALS: BP 114/67
[2017-09-11 13:40] VITALS: BP 118/61
[2017-09-11 14:05] VITALS: BP 118/61
--- NOTE | 2017-09-11 16:08 | OPERATIVE REPORT ---
DATE OF SERVICE: 09/11/2017 PREOPERATIVE DIAGNOSIS: Skin lesion left upper extremity. POSTOPERATIVE DIAGNOSIS: Skin lesion left upper extremity. PROCEDURE: Excision of skin lesion left upper extremity, 7 x 4 cm. SURGEON: Ivan Stanford DO ANESTHESIA: General. ESTIMATED BLOOD LOSS: Minimal. COMPLICATIONS: None. INDICATIONS: The patient is a 62-year-old female with a skin lesion left upper extremity over the elbow that has been biopsied twice demonstrating actinic keratosis, unclear if there is any squamous cell carcinoma present. The patient was recommended to have excision. She understands risks and benefits of procedure and wished to proceed with procedure. Consent was signed in the chart. DESCRIPTION OF PROCEDURE: The patient was taken to the operating suite. She was prepped and draped in sterile fashion. Surgical pause was performed. Elliptical incision was made around the lesion measuring 7 x 4 cm. The skin and subcutaneous tissues were removed. The specimen was tagged with long suture lateral and short suture superiorly. 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 The hemostasis had been achieved. The skin was then closed using 3-0 Prolene in vertical mattress fashion with a few simple interrupteds. The area was then washed and dried, sterile bandage was applied. The patient tolerated the procedure well without complication. She was taken to recovery room in stable condition. Job ID: [id number] DocumentID: [id number] Dictated Date: 09/11/2017 12:10:19 Nuclear Medicine Technician Date: 09/11/2017 16:07:25 Dictated By: IVAN STANFORD DO
== END 2017-09-11 14:05 | disposition home or self-care (01) ==
LOC: SDC 07:50
PROVIDERS: ATTEND Surgery
DX: C44.629 Squamous cell carcinoma of skin of left upper limb, including shoulder (principal); I10 Essential (primary) hypertension; I48.91 Unspecified atrial fibrillation; J45.909 Unspecified asthma, uncomplicated; J44.9 Chronic obstructive pulmonary disease, unspecified; I73.9 Peripheral vascular disease, unspecified; F17.210 Nicotine dependence, cigarettes, uncomplicated; Z79.899 Other long term (current) drug therapy
CPT/HCPCS: 87081; 88305; 88331; 88332; 94664

== ENCOUNTER 2017-10-09 16:30 | Emergency (ER) | payer MEDICARE, MEDICAID ==
[~2017-10-09] VITALS: Ht 160 cm; Wt 67.1 kg
[~2017-10-09 16:30] MED LIST changes: -CODE118S2 PO; +CODE118S4 PO; +TRAZ-189 PO; -TRAZ-28 PO
--- OUTSIDE RECORDS SUMMARY | 2017-10-09 16:38 | XMS REPORT | Encounter Summary ---
Author Author [facility] Organization [facility] Address Unknown Phone Unavailable Care Team Providers Care Vice Chancellor Name Role Phone Apoorva Shane MD Unavailable Edgardo Torres MD Unavailable Utech, Amanda GAME TESTER Unavailable Montana Villasenor MD Unavailable Gilles Ness MD Unavailable Rain Tariq MD Unavailable Harika Hsu MD Unavailable Nayana Mccarty RN Unavailable Unavailable Symone Lee Unavailable Unavailable Sukumar Mondragon APRN PCP Reason for Referral * Radiology Services Status Reason Specialty Diagnoses / Referred By Referred To Procedures Contact Contact No Auth Needed Radiology Diagnoses Utech, Amanda, Mob Ct Weight loss, GAME TESTER [address] unintentional [address] Chronic diarrhea [address] FLOOR Nausea and MS [address] [place], [place] vomiting, [place] [address] intractability [phone] Phone: of vomiting not specified, unspecified Fax: vomiting type [phone] ABD/PELV W CONTRAST CT ABD/PELV WO/W CONTRAST Reason for Visit * Reason Comments Vomiting * Consult, Test & Treat (Routine) Status Reason Specialty Diagnoses / Referred By Referred To Procedures Contact Contact No Auth Needed Gastroenterology Diagnoses Montana Villasenor Ukp Im Gastro gastroparesis MD [facility] [address] [place] [address] [address] [place], [place] [address] [address] [place], [place] Phone: [phone] Phone: Encounter Details Date Type Department Care Team Description 10/03/2017 Office Visit [facility] Amanda Bhandari ARNP Weight loss, Physicians [address] unintentional (Primary [facility] [place] [address] Dx); [address] [place] [address] Chronic diarrhea; [address] [phone] Nausea and vomiting, [place] [phone] vomiting not specified, unspecified vomiting type; Gastroparesis Social History Tobacco Use Types Packs/Day Years Used Date Current Every Day Smoker Cigarettes 0.25 46 Smokeless Tobacco: Never Used Alcohol Use Drinks/Week oz/Week Comments No 0 Standard 0.0 drinks or equivalent Sex Assigned at Date Recorded Not on file as of this encounter Last Filed Vital Signs Vital Sign Reading Time Taken Blood Pressure 99/67 10/03/2017 7:55 AM CDT Pulse 97 10/03/2017 7:55 AM CDT Temperature 36.4 C (97.5 F) 10/03/2017 7:55 AM CDT Respiratory Rate - - Oxygen Saturation - - Inhaled Oxygen - - Concentration Weight 68.1 kg (150 lb 3.2 oz) 10/03/2017 7:55 AM CDT Height 160 cm (5' 3") 10/03/2017 7:55 AM CDT Body Mass Index 26.61 10/03/2017 7:55 AM CDT in this encounter Instructions * Patient Instructions - Krystin Nicholson LPN - 10/03/2017 9:15 AM CDT 1) A CT Scan has been ordered for you, you will schedule this at check out today. If you do not schedule at check out or need to cancel/reschedule please call radiology scheduling at [phone]. 2) Lab orders have been placed for you, please complete ordered testing today. The lab is located on the 1st floor of this building and is open from 6:30 AM to 6 PM on Mondays, 7 AM to 6 PM Friday through Friday, and Saturdays from 7 AM to 12 PM. We will call you with the results. 3) A prescription for Reglan has been sent to your pharmacy for you. Take 5 mLs three times a day before meals and at bedtime daily. Start Ranitidine 300mg twice a day. If you have any questions or concerns please contact my nurse, Krystin, at [phone] Metoclopramide tablets Brand Name: Reglan What is this medicine? METOCLOPRAMIDE (met oh kloe PRA mide) is used to treat the symptoms of gastroesophageal reflux disease (GERD) like heartburn. It is also used to treat people with slow emptying of the stomach and intestinal tract. How should I use this medicine? Take this medicine by mouth with a glass of water. Follow the directions on the prescription label. Take this medicine on an empty stomach, about 30 minutes before eating. Take your doses at regular intervals. Do not take your medicine more often than directed. Do not stop taking except on the advice of your doctor or health rn palliative care. A special MedGuide will be given to you by the pharmacist with each prescription and refill. Be sure to read this information carefully each time. Talk to your warehouse delivery manager regarding the use of this medicine in children. Special care may be needed. What side effects may I notice from receiving this medicine? Side effects that you should report to your doctor or health rn palliative care as soon as possible: allergic reactions like skin rash, itching or hives, swelling of the face, lips, or tongue abnormal production of milk in females breast enlargement in both males and females change in the way you walk difficulty moving, speaking or swallowing drooling, lip smacking, or rapid movements of the tongue excessive sweating fever involuntary or uncontrollable movements of the eyes, head, arms and legs irregular heartbeat or palpitations muscle twitches and spasms unusually weak or tired Side effects that usually do not require medical attention (report to your doctor or health rn palliative care if they continue or are bothersome): change in sex drive or performance depressed mood diarrhea difficulty sleeping headache menstrual changes restless or nervous What may interact with this medicine? acetaminophen cyclosporine digoxin medicines for blood pressure medicines for diabetes, including insulin medicines for hay fever and other allergies medicines for depression, especially an Monoamine Oxidase Inhibitor (MAOI) medicines for Parkinson's disease, like levodopa medicines for sleep or for pain tetracycline What if I miss a dose? If you miss a dose, take it as soon as you can. If it is almost time for your next dose, take only that dose. Do not take double or extra doses. Where should I keep my medicine? Keep out of the reach of children. Store at room temperature between 20 and 25 degrees C (68 and 77 degrees F). Protect from light. Keep container tightly closed. Throw away any unused medicine after the expiration date. What should I tell my health care provider before I take this medicine? They need to know if you have any of these conditions: breast cancer depression diabetes heart failure high blood pressure kidney disease liver disease Parkinson's disease or a movement disorder pheochromocytoma seizures stomach obstruction, bleeding, or perforation an unusual or allergic reaction to metoclopramide, procainamide, sulfites, other medicines, foods, dyes, or preservatives or trying to get breast-feeding What should I watch for while using this medicine? It may take a few weeks for your stomach condition to start to get better. However, do not take this medicine for longer than 12 weeks. The longer you take this medicine, and the more you take it, the greater your chances are of developing serious side effects. If you are an elderly patient, a female patient , or you have diabetes, you may be at an increased risk for side effects from this medicine. Contact your doctor immediately if you start having movements you cannot control such as lip smacking, rapid movements of the tongue, involuntary or uncontrollable movements of the eyes, head, arms and legs, or muscle twitches and spasms. Patients and their families should watch out for worsening depression or thoughts of suicide. Also watch out for any sudden or severe changes in feelings such as feeling anxious, agitated, panicky, irritable, hostile, aggressive, impulsive, severely restless, overly excited and hyperactive, or not being able to sleep. If this happens, especially at the beginning of treatment or after a change in dose, call your doctor. Do not treat yourself for high fever. Ask your doctor or health rn palliative care for advice. You may get drowsy or dizzy. Do not drive, use machinery, or do anything that needs mental alertness until you know how this drug affects you. Do not stand or sit up quickly, especially if you are an older patient. This reduces the risk of dizzy or fainting spells. Alcohol can make you more drowsy and dizzy. Avoid alcoholic drinks. NOTE:This sheet is a summary. It may not cover all possible information. If you have questions about this medicine, talk to your doctor, pharmacist, or health care provider. Copyright 2018 [employer] in this encounter Progress Notes * Amanda Bhandari ARNP - 10/03/2017 8:00 AM CDT Formatting of this note may be different from the original. Date of Service: 10/03/2017 Subjective: Nara Huizar is a 62 y.o. female. History of Present Illness Nara is a very pleasant 62 yo female who has been seen in the past by Dr. Torres due to a history of diarrhea which became much worse after she underwent Hill gastropexy by Dr. Marvin Chacon in 12/2007. In the past, diarrhea control has required octreotide and tincture of opium. She also has a history of common bile duct stone requiring ERCP and a cholecystectomy more than 30 years ago. Over the years, she is also been diagnosed with Celaya's esophagus, gastroparesis, and Lily esophagitis. Her outside in GI workup is summarized below. Her last office visit was in 08/2015 when she was following up after a course of Xifaxan was given for her chronic diarrhea. Unfortunately, this did not help with the diarrhea. The diarrhea has also failed to respond to Flagyl in the past. She presents today to reestablish care with GI and to report worsening symptoms. She was referred back to by Dr. Villasenor/General Surgeon in [place], [place]. She states her chronic GI symptoms have progressed over the past 6 months and led to a 20 pound weight loss over the past 6 months. She also reports daily issues with regurgitation and esophageal burning despite pantoprazole 40 mg twice daily and a dose of Zantac every morning. She has frequent nighttime regurgitation of liquids and solids also esophageal dysphagia symptoms in the distal esophagus with liquids and solids. She reports following a gastroparesis diet with no improvement. She has taken Reglan 5 mg twice a day in the past with no symptom improvement although she seemed to tolerate the Reglan okay. Outside records were reviewed. Dr. Villasenor performed an EGD on her in 02/2017 and again in 06/2017. Both times he performed esophageal dilation to 20 mm without symptom improvement. As far as her diarrhea, that is currently controlled with WelChol 2 p.o. twice daily, Xifaxan 500 mg 3 times daily long- term, and Lomotil twice daily as needed. She is currently having 1 formed bowel movement daily. No rectal bleeding or melena. She has occasional abdominal pain but nothing persistent. She remains on Eliquis due to a history of A. fib. Reviewed recent lab work in care everywhere. Lab work dated 09/16/17 revealed normal CBC, hemoglobin A1c 5.6, albumin 3.8, alkaline phosphatase 112. Outside GI workup: Performed by Dr. Montana Villasenor in [place], [place] 02/22/15 - COLON - prep was adequate and the scope was advanced to the cecum. A small adenomatous polyp was removed from the sigmoid colon, external hemorrhoids and internal hemorrhoids were seen. A random biopsy was taken from the ascending colon and from the rectum - no evidence of microscopic colitis. 06/09/15 - EGD - distal esophageal stricture, balloon dilation performed, up to 20mm. Intact fundoplication wrap, reflux esophagitis LA grade B-C, retained food in the stomach, moderate gastritis and duodenitis. No mention of Celaya's appearing esophageal mucosa. Biopsies negative for Helicobacter Pylori, Celiac sprue, and biopsies of GE junction revealed reflux esophagitis but no metaplasia or dysplasia. She reports some improvement of lower esophageal dysphagia after dilation. 02/2017 - EGD - class B reflux esophagitis, mild distal esophageal stricture which was balloon dilated to 20 mm. Stomach and duodenum appeared normal. Biopsies were negative for H. pylori and Celaay's. 06/2017 - EGD - class B reflux esophagitis with mild esophageal stricture. Stricture was dilated to 20 mm. Moderate gastritis and duodenitis seen. No ulcerations. Biopsies of the duodenum were normal. Negative biopsies for H. pylori. Esophageal biopsies consistent with chronic reflux esophagitis. No fungal organisms or metaplasia noted. 09/2017 - GET - delayed gastric emptying - at 121 minutes there was still approximately 63% of the radiotracer still present within the stomach. PAST MEDICAL HISTORY: 1. Status post Hill gastropexy, 12/25/2007. 2. Status post cholecystectomy for gallstones approximately 30 years ago. 3. History of TIA. 4. Depression. 5. History of arthritis. 6. Diabetes mellitus. 7. Nondysplastic Celaya's esophagus. EGD 07/2014 + Celaya's with no HGD dysplasia. 8. History of biliary stricture, status post sphincterotomy, 02/16/2008, bile duct brushings were negative. 9. SIBBO ( + H2BT 06/09/09). 10. Flexible sigmoidoscopy at - 09/26/15 - entire colon appeared normal. Negative random biopsies for microscopic colitis. Review of Systems Constitutional: Positive for activity change, appetite change and unexpected weight change. Negative for chills, diaphoresis, fatigue and fever. HENT: Positive for congestion, drooling, sinus pressure, sneezing, tinnitus, trouble swallowing and voice change. Negative for mouth sores and sore throat. Eyes: Positive for redness and itching. Negative for pain and visual disturbance. Respiratory: Positive for cough, choking, shortness of breath and wheezing. Negative for chest tightness. Cardiovascular: Positive for palpitations and leg swelling. Negative for chest pain. Gastrointestinal: Positive for diarrhea and nausea. Negative for abdominal distention, abdominal pain, anal bleeding, blood in stool, constipation, rectal pain and vomiting. Genitourinary: Positive for difficulty urinating and enuresis. Negative for flank pain and pelvic pain. Musculoskeletal: Positive for arthralgias, back pain, joint swelling, myalgias, neck pain and neck stiffness. Skin: Positive for wound. Negative for rash. Neurological: Positive for dizziness, tremors, weakness, light-headedness, numbness and headaches. Hematological: Negative for adenopathy. Bruises/bleeds easily. Psychiatric/Behavioral: Positive for confusion, decreased concentration and sleep disturbance. The patient is nervous/anxious and is hyperactive. All other systems reviewed and are negative. Objective: albuterol (VENTOLIN HFA) 90 mcg/actuation inhaler Inhale 2 puffs by mouth into the lungs daily. Shake well before use. alendronate (FOSAMAX) 70 mg tablet Take 70 mg by mouth every 7 days. apixaban (ELIQUIS) 5 mg tab tablet Take 5 mg by mouth twice daily. ARIPiprazole (ABILIFY) 10 mg tablet Take 10 mg by mouth daily. azithromycin (ZITHROMAX) 250 mg tablet Take 250 mg by mouth daily. Take 2 tabs by mouth on day 1, followed by 1 tab by mouth daily on days 2 - 5. baclofen (LIORESAL) 20 mg tablet Take 20 mg by mouth three times daily. benztropine (COGENTIN) 0.5 mg tablet Take 0.5 mg by mouth twice daily. budesonide/formoterol (SYMBICORT) 160/4.5 mcg HFAA inhalation Inhale 2 Puffs by mouth daily. busPIRone (BUSPAR) 5 mg tablet Take 5 mg by mouth daily. calcium carbonate (OS-DEAN) 1250 mg tablet Take 1,250 mg by mouth daily. cephalexin (KEFLEX) 250 mg capsule Take 1 capsule by mouth twice daily. cetirizine (ZYRTEC) 10 mg tablet Take 10 mg by mouth every morning. colesevelam(+) (WELCHOL) 625 mg tablet Take 1,875 [...] 2 mg by mouth At Bedtime Daily. sertraline HCl (SERTRALINE PO) Take by mouth. simvastatin (ZOCOR) 20 mg tablet Take 20 mg by mouth At Bedtime Daily. tiotropium (SPIRIVA) 18 mcg capsule for inhaler Inhale 18 mcg by mouth daily. traZODone (DESYREL) 150 mg tablet Take 150 mg by mouth at bedtime daily. trimethoprim/sulfamethoxazole (BACTRIM DS) 160/800 mg tablet Take 1 tablet by mouth twice daily. Begin taking the morning of Urodyanamics Vitals: 10/03/17 0755 BP: 99/67 Pulse: 97 Temp: 36.4 C (97.5 F) TempSrc: Oral Weight: 68.1 kg (150 lb 3.2 oz) Height: 160 cm (63") Body mass index is 26.61 kg/m. Physical Exam Constitutional: She is oriented to person, place, and time. She appears well- developed and well-nourished. No distress. HENT: Head: Normocephalic and atraumatic. Mouth/Throat: Oropharynx is clear and moist. Eyes: Conjunctivae are normal. Pupils are equal, round, and reactive to light. Right eye exhibits no discharge. Left eye exhibits no discharge. No scleral icterus. Neck: Normal range of motion. Neck supple. No thyromegaly present. Cardiovascular: Normal rate, regular rhythm, normal heart sounds and intact distal pulses. Pulmonary/Chest: Effort normal and breath sounds normal. No respiratory distress. She has no wheezes. Abdominal: Soft. Bowel sounds are normal. She exhibits no distension and no mass. There is tenderness. There is no rebound and no guarding. mild/generalized tenderness, soft, no obvious distention Musculoskeletal: Normal range of motion. She exhibits no edema. Lymphadenopathy: She has no cervical adenopathy. Neurological: She is alert and oriented to person, place, and time. Coordination normal. Skin: Skin is warm and dry. No rash noted. She is not diaphoretic. Psychiatric: She has a normal mood and affect. Her behavior is normal. Judgment and thought content normal. Vitals reviewed. Assessment and Plan: 1. Refactory N/V, GERD, and regurgitation over past 6 months. History of gastroparesis. She has a long-standing history of gastroparesis and GERD, symptoms significantly worse over the previous 6 months. No improvement with pantoprazole 40 mg twice daily and Zantac once daily as well as gastroparesis diet. Has failed to respond to Prevacid, Dexilant, Nexium, and omeprazole in the past. 2. Dysphagia. Reports solid and liquid lower esophageal dysphagia. No improvement with esophageal dilation by outside provider in 02/2017 and 06/2017 when mild esophageal stricture reported at that time. 3. Weight loss. Reports has lost 20 pounds over the previous 6 months due to above symptoms. 4. Chronic diarrhea with history of small intestinal bacterial overgrowth. Has taken Tincture of opium and octreotide in the past. Negative biopsies for microscopic colitis in 2016. Symptoms currently well controlled with WelChol 2 p.o. twice daily, Xifaxan 550 mg 3 times daily long-term, and Lomotil twice daily as needed. 5. History of Celaya's. Most recent EGD done outside 06/2017 - biopsies with no mention of Celaya's. 6. Long history of smoking. 7. History of A-fib, currently on Eliquis. 8. History of adenomatous colon polyps. Plan: 1. Will check labs todayCMP, TSH, amylase, and lipase. We will call her with results. May want to check AM Cortisol if sx persist. 2. I am concerned about her significant weight loss. Will order CT chest/A/P to evaluate for any sinister cause of this weight loss. CT chest is in light of her history of heavy smoking. Will hold on EGD evaluation for now since this has been done X 2 in past 6 months, dilation with no improvement. 3. She was encouraged to continue gastroparesis diet and strict antireflux precautions. Given her significant symptoms, discussed short-term use of Reglan since she has tolerated low doses in the past. We discussed potential risk related to Reglan use including tardive dyskinesia, she voices understanding and will discontinue the medication if she develops any worrisome side effects. We will have her start liquid Reglan, 5 mg 4 times daily, before meals/at bedtime, to see if helpful. Of asked her to call with a progress report in 1 week. 4. For her GERD symptoms will have her continue pantoprazole 40 mg twice daily and add ranitidine 300 mg twice daily, taking the dose midday and at bedtime. 5. We will also see if she qualifies for [facility] gastroparesis study. 6. She will continue WelChol, Xifaxan, and Lomotil as needed since this is been helpful for her chronic diarrhea. 7. I have asked her to come back to see me for follow-up on 10/29/17, call sooner if needed. In the meantime she will monitor her weight closely. Encouraged her to supplement nutrition with boost or Ensure. The plan of care was discussed with Dr. Torres while patient in clinic. Patient was advised of the plan and voiced agreement and understanding. Total face to face time spent with patient: 45 minutes with >50% of that time spent counseling the patient on medications, prior study results related to symptoms, differential diagnosis, and options regarding the plan of care. Thank you for allowing me to see your patient in the office today. Please feel free to contact me if you have any questions or concerns. in this encounter Plan of Treatment Date Type Specialty Care Team Description 10/03/2017 Procedure Pass Gastroenterology Name Priority Associated Diagnoses Order Schedule CT ABD/PELV W CONTRAST Routine Weight loss, Expected: 10/09/2017 unintentional (Approximate), Expires: Chronic diarrhea 10/09/2018 Nausea and vomiting, intractability of vomiting not specified, unspecified vomiting type Gastroparesis as of this encounter Results * TSH WITH FREE T4 REFLEX (10/03/2017 9:50 AM) Component Value Ref Range TSH 2.770 0.35 - 5.00 MCU/ML Specimen Performing Laboratory [facility] [address] [place] [address] * LIPASE (10/03/2017 9:50 AM) Component Value Ref Range Lipase 53 11 - 82 U/L Specimen Performing Laboratory [facility] [address] [place] [address] * AMYLASE (10/03/2017 9:50 AM) Component Value Ref Range Amylase 39 24 - 100 U/L Specimen Performing Laboratory [facility] [address] [place] [address] * COMPREHENSIVE METABOLIC PANEL (10/03/2017 9:50 AM) Component Value Ref Range Sodium 142 137 - 147 MMOL/L Potassium 4.2 3.5 - 5.1 MMOL/L Chloride 108 98 - 110 MMOL/L Glucose 102 (H) 70 - 100 MG/DL Blood Urea Nitrogen 10 7 - 25 MG/DL Creatinine 0.65 0.4 - 1.00 MG/DL Calcium 9.6 8.5 - 10.6 MG/DL Total Protein 6.7 6.0 - 8.0 G/DL Total Bilirubin 0.3 0.3 - 1.2 MG/DL Albumin 4.1 3.5 - 5.0 G/DL Alk Phosphatase 101 25 - 110 U/L AST (SGOT) 13 7 - 40 U/L CO2 28 21 - 30 MMOL/L ALT (SGPT) 5 (L) 7 - 56 U/L Anion Gap 6 3 - 12 eGFR Non >60 >60 [...] Specimen Performing Laboratory [facility] [address] [place] [address] in this encounter Visit Diagnoses Diagnosis Weight loss, unintentional - Primary Loss of weight Chronic diarrhea Diarrhea Nausea and vomiting, intractability of vomiting not specified, unspecified vomiting type Gastroparesis
--- OUTSIDE RECORDS SUMMARY | 2017-10-09 16:38 | XMS REPORT | Encounter Summary ---
Author Author [facility] Organization [facility] Address Unknown Phone Unavailable Care Team Providers Care Bee Worker Name Role Phone Apoorva Shane MD Unavailable Edgardo Torres MD Unavailable Amanda Bhandari Unavailable Montana Villasenor MD Unavailable Gilles Ness MD Unavailable aRin Tariq MD Unavailable Harika Hsu MD Unavailable Nayana Mccarty RN Unavailable Unavailable Symone Lee Unavailable Unavailable Sukumar Mondragon APRN PCP Encounter Details Date Type Department Care Team Description 10/03/2017 Hospital [facility] Elisabet, AKHIL Patel Abnormal weight loss Encounter [address] [place] [address] [address] [place] [address] Social History Tobacco Use Types Packs/Day Years [...] 10 mg by mouth mg tablet daily. azithromycin (ZITHROMAX) Take 250 mg by mouth 250 mg tablet daily. Take 2 tabs by mouth on day 1, followed by 1 tab by mouth daily on days 2 - 5. baclofen (LIORESAL) 20 mg Take 20 mg by mouth three tablet times daily. benztropine (COGENTIN) Take 0.5 mg by mouth 0.5 mg tablet twice daily. budesonide/formoterol Inhale 2 Puffs by mouth (SYMBICORT) 160/4.5 mcg daily. HFAA inhalation busPIRone (BUSPAR) 5 mg Take 5 mg by mouth daily. tablet calcium carbonate Take 1,250 mg by mouth (OS-DEAN) 1250 mg tablet daily. cephalexin (KEFLEX) 250 Take 1 capsule by mouth 2 capsule 0 2017 mg capsule twice daily. cetirizine (ZYRTEC) 10 mg Take 10 mg by mouth every tablet morning. colesevelam(+) (WELCHOL) Take 1,875 mg by mouth [...] directed daily sprayIndications: as needed. Shake bottle Allergic Rhinitis gently before using. gabapentin (NEURONTIN) Take 600 [...] 10 mg by mouth mg tablet daily. metoclopramide (REGLAN) 1 Take 5 mL by mouth before 600 mL 1 2017 mg/mL oral meals and at bedtime. solutionIndications: Gastroparesis metoprolol XL (TOPROL XL) Take 25 mg by mouth 25 mg extended release daily. tablet montelukast (SINGULAIR) Take 10 mg by mouth at 10 mg tablet bedtime daily. MULTIVIT WITH Take 1 tablet by mouth CALCIUM,IRON,MIN (WOMEN'S daily. MULTIPLE VITAMINS PO) nitroglycerin (NITROSTAT) Place 0.4 mg under tongue 0.4 mg tablet every 5 minutes as needed for Chest Pain. nystatin (NYSTOP) 100,000 Apply topically to 30 g 0 07/09/2017 unit/g topical affected area four times powderIndications: Yeast daily. dermatitis other medication 1 Dose. 5L/NC home oxygen oxybutynin XL (DITROPAN Take 1 tablet by mouth 90 tablet 3 07/10/2017 XL) 10 mg daily. Do not cut/ crush/ tabletIndications: chew Urinary incontinence, unspecified type pantoprazole DR Take 80 mg by mouth (PROTONIX) 40 mg tablet daily. primidone (MYSOLINE) 250 Take 250 mg by mouth mg tablet every 8 hours. ranitidine(+) (ZANTAC) Take one tablet by mouth 60 tablet 3 2017 300 mg tablet midday and one at bedtime. rifAXIMin (XIFAXAN) 550 Take 550 mg by mouth mg tablet every 8 hours. ropinirole (REQUIP) 2 mg Take 2 mg by mouth At tablet Bedtime Daily. sertraline HCl Take by mouth. (SERTRALINE PO) simvastatin (ZOCOR) 20 mg Take 20 mg by mouth At tablet Bedtime Daily. tiotropium (SPIRIVA) 18 Inhale 18 mcg by mouth mcg capsule for inhaler daily. traZODone (DESYREL) 150 Take 150 mg by mouth at mg tablet bedtime daily. trimethoprim/sulfamethoxa Take 1 tablet by mouth 2 tablet 0 2017 zole (BACTRIM DS) 160/800 twice daily. Begin taking mg tablet the morning of Urodyanamics as of this encounter Plan of Treatment Date Type Specialty Care Team Description 10/03/2017 Procedure Pass Gastroenterology as of this encounter Results * TSH WITH FREE T4 REFLEX (10/03/2017 9:50 AM) Component Value Ref Range TSH 2.770 0.35 - 5.00 MCU/ML Specimen Performing Laboratory [facility] [address] [place] [address] * LIPASE (10/03/2017 9:50 AM) Component Value Ref Range Lipase 53 11 - 82 U/L Specimen Performing Laboratory [facility] [address] [place] [address] * AMYLASE (10/03/2017 9:50 AM) Component Value Ref Range Amylase 39 24 - 100 U/L Specimen Performing Laboratory [facility] [address] [place] [address] * COMPREHENSIVE METABOLIC PANEL (10/03/2017 9:50 AM) [...] Performing Laboratory [facility] [address] [place] [address] in this encounter Visit Diagnoses Diagnosis Weight loss, unintentional Loss of weight Chronic diarrhea Diarrhea Nausea and vomiting, intractability of vomiting not specified, unspecified vomiting type Gastroparesis Admitting Diagnoses Diagnosis Abnormal weight loss Noninfective gastroenteritis and colitis, unspecified Nausea with vomiting, unspecified
--- OUTSIDE RECORDS SUMMARY | 2017-10-09 16:38 | XMS REPORT | Encounter Summary ---
Author Author [facility] Organization [facility] Address Unknown Phone Unavailable Care Team Providers Care Coating Machine Helper Name Role Phone Apoorva Shane MD Unavailable Edgardo Torres MD Unavailable Amanda Bhandari Unavailable Montana Villasenor MD Unavailable Gilles Ness MD Unavailable Rain Tariq MD Unavailable Harika Hsu MD Unavailable Nayana Mccarty RN Unavailable Unavailable Symone Lee Unavailable Unavailable Sukumar Mondragon APRN PCP Encounter Details Date Type Department Care Team Description 10/03/2017 Procedure Pass [facility] [address] [place] [address] Social History Tobacco Use Types Packs/Day Years Used Date Current Every Day Smoker Cigarettes 0.25 46 Smokeless Tobacco: Never Used Alcohol Use Drinks/Week oz/Week Comments No 0 Standard 0.0 drinks or equivalent Sex Assigned at Date Recorded Not on file as of this encounter Plan of Treatment Date Type Specialty Care Team Description 10/03/2017 Procedure Pass Gastroenterology as of this encounter Visit Diagnoses Not on filein this encounter
--- OUTSIDE RECORDS SUMMARY | 2017-10-09 16:38 | XMS REPORT | Clinical Summary ---
Author Author [facility] Organization [facility] Address Unknown Phone Unavailable Care Team Providers Care Cager Operator Name Role Phone Apoorva Shane MD [...] in the Health Information Management department at [phone] for further assistance in locating additional records.[facility] Allergies Active Allergy Reactions Severity Noted Date Comments Ibuprofen RASH Medium 06/09/2009 Knbvy-Gtwcv-Owwvpwz-Pramo RASH Medium 01/23/2017 xine Current Medications Prescription [...] Shake bottle Allergic Rhinitis gently before using. nystatin (NYSTOP) 100,000 Apply [...] 18 mg tablet the morning of Urodyanamics ARIPiprazole (ABILIFY) 10 Take 10 mg by mouth Active mg tablet daily. azithromycin (ZITHROMAX) Take 250 mg by mouth Active 250 mg tablet daily. Take 2 tabs by mouth on day 1, followed by 1 tab by mouth daily on days 2 - 5. busPIRone (BUSPAR) 5 mg Take 5 mg by mouth daily. Active tablet cetirizine (ZYRTEC) 10 mg Take 10 mg by mouth every Active tablet morning. sertraline HCl Take by mouth. Active (SERTRALINE PO) ranitidine(+) (ZANTAC) Take one tablet by mouth 60 tablet 3 10/04/19 Active 300 mg tablet midday and one at 18 bedtime. metoclopramide (REGLAN) 1 Take 5 mL by mouth before 600 mL 1 10/04/19 Active mg/mL oral meals and at bedtime. 18 solutionIndications: Gastroparesis MYRBETRIQ 50 mg TAKE ONE TABLET BY [...] with resolution of obstruction, yet urgency and BRONWYN (UUI>RICO); recently poorly controlled DM and no follow-up for her MS L isidro Assessment & Plan: - UDS - 2 doses antibiotics - referral to neurology Urge incontinence of urine 06/13/2015 Overview: 61 year old female with a history of urge incontinence which has been worse since placement of a urethral sling Chris felix Assessment & Plan: Patient's PVR is not [...] Heartburn 01/19/2015 COPD (chronic obstructive pulmonary disease) ([facility]) 05/18/2012 Diabetes mellitus ([facility]) 05/18/2012 TIA (transient ischemic attack) 05/18/2012 Diarrhea 05/18/2012 Encounters Date Type Specialty Care Team Description 10/03/2017 Hospital Lab Amanda Bhandari ARNP Abnormal weight loss Encounter 10/03/2017 Office Visit Gastroenterology Amanda Bhandari ARNP Weight loss , unintentional (Primary Dx); Chronic diarrhea; Nausea and vomiting, intractability of vomiting not specified, unspecified vomiting type; Gastroparesis 09/10/2017 Office Visit Urology Balbina Garcia MD Hx of multiple sclerosis (Primary Dx); Urinary obstruction 09/05/2017 Telephone Urology Balbina Garcia MD Medication Question 08/26/2017 Telephone Uro Pool Lifeguard Rain Tariq MD General Question 07/10/2017 Telephone Urology Balbina Garcia MD General Question from Last 3 Months [...] F) 10/03/2017 7:55 AM CDT Respiratory Rate 20 10/25/2015 10:12 AM CDT Oxygen Saturation 94% 06/13/2017 10:15 AM PROGRAM/MUSIC DIRECTOR Inhaled Oxygen - - Concentration Weight 68.1 kg (150 lb 3.2 oz) 10/03/2017 7:55 AM CDT Height 160 cm (5' 3") 10/03/2017 7:55 AM CDT Body Mass Index 26.61 10/03/2017 7:55 AM CDT Plan of Treatment Date Type Specialty Care Team Description 10/03/2017 Procedure Pass Gastroenterology Health Maintenance Due Date Last Done Comments HEPATITIS C SCREENING 1953 PHYSICAL (COMPREHENSIVE) 1960 EXAM PERTUSSIS VACCINE 1964 HIV SCREENING 1968 TETANUS VACCINE 1970 DILATED EYE EXAM 07/21/1971 FOOT EXAM 07/21/1971 HBA1C 07/21/1971 MICROALBUMIN 07/21/1971 PNEUMONIA VACCINE (DM) 07/21/1971 CERVICAL CANCER SCREENING 07/21/1983 BREAST CANCER SCREENING 1993 COLORECTAL CANCER 07/21/2003 SCREENING SHINGLES RECOMBINANT 07/21/2003 VACCINE (1 of 2) INFLUENZA VACCINE 01/05/2018 06/21/2013 Results * TSH WITH FREE T4 REFLEX (10/03/2017 9:50 AM) Component Value Ref Range TSH 2.770 0.35 - 5.00 MCU/ML Specimen Performing Laboratory [facility] [address] [place] [address] * LIPASE (10/03/2017 9:50 AM) Component Value Ref Range Lipase 53 11 - 82 U/L Specimen Performing Laboratory [facility] [address] [place] [address] * AMYLASE (10/03/2017 9:50 AM) Component Value Ref Range Amylase 39 24 - 100 U/L Specimen Performing Laboratory [facility] [address] [place] [id number] * COMPREHENSIVE METABOLIC PANEL (10/03/2017 9:50 AM) [...] Performing Laboratory [facility] [address] [place] [id number] from Last 3 Months
--- OUTSIDE RECORDS SUMMARY | 2017-10-09 16:39 | XMS REPORT | Encounter Summary ---
Author Author [facility] Organization [facility] Address Unknown Phone Unavailable Care Team Providers Care Dispatch Clerk Name Role Phone Apoorva Shane MD Unavailable Edgardo Torres MD Unavailable Amanda Bhandari Unavailable Montana Villasenor MD Unavailable Gilles Ness MD Unavailable Rain Tariq MD Unavailable Harika Hsu MD Unavailable Nayana Mccarty RN Unavailable Unavailable Symone Lee Unavailable Unavailable Sukumar Mondragon APRN PCP Reason for Visit * Reason Comments Medication Question Encounter Details Date Type Department Care Team Description 09/05/2017 Telephone [facility] Balbina Garcia MD Medication Question Physicians - Urology [address] [facility] [address]ND FLOOR POD [address] [facility] [place] [address] OFFICE BLDG [phone] [place] [address] Social History Tobacco Use Types Packs/Day Years Used Date Former Smoker Cigarettes 0.25 46 Smokeless Tobacco: Never Used Alcohol Use Drinks/Week oz/Week Comments No 0 Standard 0.0 drinks or equivalent Sex Assigned at Date Recorded Not on file as of this encounter Miscellaneous Notes * Telephone Encounter - Emilia Bello LPN - 09/05/2017 3:31 PM GRUPO Dooley with [facility] [phone] ext [phone] calling with medication questions. She is doing medication reconciliation for patient and has her taking Oxybutynin, Myrbetirq & Tropsium. She is calling for clarification if patient should be taking all of these medications. Called and left VM message that patient should only be taking Oxybutynin at this time. She will call if further questions. in this encounter Plan of Treatment Date Type Specialty Care Team Description 10/03/2017 Procedure Pass Gastroenterology as of this encounter Visit Diagnoses Not on filein this encounter
--- OUTSIDE RECORDS SUMMARY | 2017-10-09 16:39 | XMS REPORT | Encounter Summary ---
Author Author [facility] Organization [facility] Address Unknown Phone Unavailable Care Team Providers Care Catholic Priest Name Role Phone Apoorva Shane MD Unavailable Edgardo Torres MD Unavailable Amanda Bhandari Unavailable Montana Villasenor MD Unavailable Gilles Ness MD Unavailable Rain Tariq MD Unavailable Harika Hsu MD Unavailable Nayana Mccarty RN Unavailable Unavailable Symone Lee Unavailable Unavailable Sukumar Mondragon APRN PCP Reason for Visit * Reason Comments General Question Encounter Details Date Type Department Care Team Description 08/26/2017 Telephone [facility] Rain Tariq MD General Question Physicians - OBGYN [address] [facility] [address] F[address] [place] [address] [facility] [address] OFFICE BLDG [phone] [place] [address] Social History Tobacco Use Types [...] LPN in this encounter Plan of Treatment Date Type Specialty Care Team Description 10/03/2017 Procedure Pass Gastroenterology as of this encounter Visit Diagnoses Not on filein this encounter
--- OUTSIDE RECORDS SUMMARY | 2017-10-09 16:39 | XMS REPORT | Encounter Summary ---
Author Author [facility] Organization [facility] Address Unknown Phone Unavailable Care Team Providers Care Video Production Specialist Name Role Phone Apoorva Shane MD Unavailable Edgardo Torres MD Unavailable Amanda Bhandari Unavailable Montana Villasenor MD Unavailable Gilles Ness MD Unavailable Rain Tariq MD Unavailable Harika Hsu MD Unavailable Nayana Mccarty RN Unavailable Unavailable Symone Lee Unavailable Unavailable Sukumar Mondragon APRN PCP Reason for Visit * Reason Comments General Question Encounter Details Date Type Department Care Team Description 07/10/2017 Telephone [facility] Balbina Garcia MD General Question Physicians - Urology [address] [facility] [address]ND FLOOR POD A [address] [facility] [place] [address] OFFICE BLDG [phone] [place] [address] Social History Tobacco Use Types [...] advise). in this encounter Plan of Treatment Date Type Specialty Care Team Description 10/03/2017 Procedure Pass Gastroenterology as of this encounter Visit Diagnoses Diagnosis Urinary incontinence, unspecified type - Primary
--- OUTSIDE RECORDS SUMMARY | 2017-10-09 16:39 | XMS REPORT | Encounter Summary ---
Author Author [facility] Organization [facility] Address Unknown Phone Unavailable Care Team Providers Care Fire Investigation Lieutenant Name Role Phone Apoorva Shane MD Unavailable [...] Procedures Contact Contact No Auth Needed Specialty Neurology Diagnoses Todd Garcia Neurology Cl Services Hx of prieto Mortensen MD [facility] ON Required sclerosis [address] [place] [phone] Phone: Scheduling Instructions Contact Phone Numbers for each area if questions arise: General: [phone] Epilepsy: Multiple Sclerosis: Parkinson's: [facility]: Stroke & Neuromuscular: [phone] [place]: [address] Reason for Visit * Reason Comments Urinary Frequency Urinary Incontinence Encounter Details Date Type Department Care Team Description 09/10/2017 Office Visit [facility] Balbina Garcia MD Hx of multiple sclerosis Physicians - Urology [address] [facility] (Primary Dx); 2ND FLOOR POD A [place] [address] Urinary obstruction [address] [facility] [place] [address] OFFICE BLDG [phone] [place] [address] Social History Tobacco Use Types [...] further instructions. Thank you for choosing the [facility] Department of Urology for your health care needs. If you must cancel your Urodynamic Study appointment, please provide 72 hours [ three (3) business days] notice which allows us to provide this important service to another patient. in this encounter Progress Notes * Balbina Garcia MD - 09/10/2017 9:15 AM CDT Formatting of this note may be different from the original. Subjective: History of Present Illness Nara Huizar is a 62 y.o. female with a history of spinal MS, lower urinary tract symptoms, primarily urinary urgency after a prior urethral sling placement by Dr. Yeh 3 years ago. Ms. Huizar also has a history of microscopic and grosshematuria and has had a complete negative workup. Urgency, frequency and UUIx 3years. Denied RICO. She endorsed having to crede and lean forward to empty, with straining since her sling. UDS demonstrated elevated PVR at 450 ml, no detrusor overactivity, decreased sensation, and high voiding pressure, but no leakage. She underwent a urethrolysis and sling excision on 06/13/17. Postop her straining and retention resolved, Yet, she was still bothered by urgency and UUI. She was restarted on oxybutynin xl 10mg one day ago. She additionally reported upcoming appointment with her neurologist and plans to restart MS meds. She returns and has not had follow-up re her MS. Recently has had poorly controlled DM, yet started a new med. She now reports UUI>RICO. Review of Systems Constitutional: Negative. HENT: Negative. Respiratory: Negative. Cardiovascular: Negative. Gastrointestinal: Negative. Genitourinary: Positive for enuresis and frequency. Musculoskeletal: Negative. Skin: Negative. Allergic/Immunologic: Negative. Hematological: Negative. Psychiatric/Behavioral: Negative. Objective: albuterol (VENTOLIN HFA) 90 mcg/actuation inhaler [...] Take 1 capsule by mouth twice daily. colesevelam(+) (WELCHOL) 625 mg tablet Take [...] Begin taking the morning of Urodyanamics Vitals: 09/10/17 0903 BP: 95/60 Pulse: 60 Weight: 69.2 kg (152 lb 9.6 oz) Height: 160 cm (63") Body mass index is 27.03 kg/m. Physical Exam Constitutional: She is oriented to person, place, and time. She appears well- developed and well-nourished. No distress. HENT: Head: Normocephalic and atraumatic. Right Ear: External ear normal. Left Ear: External ear normal. Eyes: EOM are normal. No scleral icterus. Neck: Normal range of motion. No tracheal deviation present. Pulmonary/Chest: Effort normal. No respiratory distress. She has no wheezes. Abdominal: Soft. She exhibits no distension. There is no tenderness. There is no guarding. Musculoskeletal: Normal range of motion. She exhibits no edema. Neurological: She is alert and oriented to person, place, and time. Skin: Skin is warm and dry. No rash noted. Psychiatric: She has a normal mood and affect. Her behavior is normal. Pvr=4mL Assessment and Plan: Problem Urinary Obstruction 61 [...] DM and no follow-up for her MS Urinary obstruction - UDS - 2 doses antibiotics - referral to neurology * Joleen Hsu LPN - 09/10/2017 9:15 AM CDT PVR 4 ml in this encounter Miscellaneous Notes * Assessment & Plan Note - Balbina Garcia MD - 09/14/2017 7:39 AM CDT Associated Problem(s): Urinary obstruction - UDS - 2 doses antibiotics - referral to neurology in this encounter Plan of Treatment Date Type Specialty Care Team Description 10/03/2017 Procedure Pass Gastroenterology Name Priority Associated Diagnoses Order Schedule AMB REFERRAL TO NEUROLOGY Routine Hx of multiple sclerosis Ordered: 09/2017 as of this encounter Visit Diagnoses Diagnosis Hx of multiple sclerosis - Primary Personal history of other disorders of nervous system and sense organs Urinary obstruction Urinary obstruction, unspecified
--- OUTSIDE RECORDS SUMMARY | 2017-10-09 17:05 | XMS REPORT ---
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 Active 16261018 Problem Colon polyp K63.5 Active 28543747 Problem Bilateral low back pain without sciatica M54.5 Active 276278161 Problem Screening breast examination Z12.39 Active 614371173 Problem Postmenopausal Z78.0 Active 07183647 Problem Osteopenia M85.80 Active 521151784 Problem Cigarette nicotine dependence without complication F17.210 Active 08229742 Problem Type 2 diabetes mellitus with diabetic peripheral angiopathy without gangrene E11.51 Active 777892080 Problem Vascular dementia without behavioral disturbance F01.50 Active 45525080844130083 Problem Unspecified atherosclerosis of [place] arteries of extremities, unspecified extremity I70.209 Active 086234416684543 Problem Arthritis M19.90 Active 6346376 Problem Chronic atrial fibrillation I48.2 Active 261228845 Problem Chronic obstructive pulmonary disease with acute lower respiratory infection J44.0 Active 510585872 Problem Other chronic pancreatitis K86.1 Active 842510732 Problem Stress incontinence of urine N39.3 Active 07767028 Problem Controlled type 2 diabetes mellitus without complication, without long -term current use of insulin E11.9 Active 707164395 Problem Unspecified psychosis F29 Active 76981476 Problem Xeroderma Q80.9 Active 77248078 Problem COPD (chronic obstructive pulmonary disease) J44.9 Active 39718382 Problem Dementia without behavioral disturbance, unspecified dementia type F03.90 Active 95477847 Problem Gastroparesis K31.84 Active 034655157 Problem Type 2 diabetes mellitus with diabetic neuropathy, without long-term current use of insulin E11.40 Active 98664461 Problem Osteoporosis M81.0 Active 82248704 Problem Atherosclerosis of [place] artery of both lower extremities with intermittent claudication I70.213 Active 359243434759458 Problem Hyperlipidemia E78.5 Active 62598593 Problem Diabetic polyneuropathy associated with type 2 diabetes mellitus E11.42 Active 81723443 Problem Essential tremor G25.0 Active 36638647 Problem Atherosclerotic heart disease of [place]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 I25.118 Active 1097413954911 Problem Generalized anxiety disorder F41.1 Active 379147922 Problem Gastroesophageal reflux disease, esophagitis presence not specified K21.9 Active 203997290 Problem Coronary artery disease involving [place] coronary artery of [place] 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 I25.118 Active 9858230533858 Problem Postconcussion syndrome F07.81 Active 89508648 Problem Chronic pain syndrome G89.4 Active 907106399 Problem Migraine without aura and without status migrainosus, not intractable G43.009 Active 613559496 Problem Paroxysmal atrial fibrillation I48.0 Active 328980692 Problem Migraine without aura and with status migrainosus, not intractable G43.001 Active 766377101 Problem Cervicalgia M54.2 Active 5683884839770 Problem Acute exacerbation of chronic obstructive pulmonary disease (COPD) J44.1 Active 192447706 Problem Major depressive disorder, recurrent episode, moderate F33.1 Active 412074881 Problem Crohn''s disease without complication, unspecified gastrointestinal tract location K50.90 Active 02585655 Problem Chronic fatigue R53.82 Active 68029769 Problem Bipolar affective disorder, currently depressed, moderate F31.32 Active 275712582 ALLERGIES No Information ENCOUNTERS Encounter Location Date Diagnosis [facility] [address] [facility] [id number] [address] Nov, [facility] [address], [place] [address] Oct, [facility] [address], [place] [address] Sep, [facility] [address] [id number], [place] [address] Sep, [place] [address], [place] [address] Sep, [facility] [address] [id number] [place] [address] 31966- 4760 18 Sep, 2017 Encounter for well woman exam with routine gynecological exam Z01.419 ; Screening for STDs (sexually transmitted diseases) Z11.3 ; Screening breast examination Z12.31 and Overweight (BMI 25.0-29.9) E66.3 [facility] [id number] [place] [address] 49517- 0689 11 Sep, 2017 [facility] [id number] [place] [address] 55212- 8904 Sep, [facility] [id number] [place] [address] 24015- 5275 Sep, [place] [address] [id number] [place] [address] 62891- 6284 August, [facility] [id number] [place] [address] 37205- 3595 August, [facility] [id number] [place] [address] 14201- 4737 August, Type 2 diabetes mellitus with diabetic neuropathy, without long-term current use of insulin E11.40 and Sprain of right ankle, unspecified ligament, initial encounter S93.401A [facility] [address] [place] [address] 57495- 3578 August, [facility] [id number] [place] [address] 56613- 5944 August, [facility] [id number] [place] [address] 94428- 5221 August, [facility] [id number] [place] [address] 92330- 2871 August, Gastroesophageal reflux disease, esophagitis presence not specified K21.9 [facility] [id number] [place] [address] 78651- 0092 August, [facility] [address], [place] [address] 2[address] August, [facility] [address] [place] [address] 083639- 5244 August, [facility] [address] [place] [address] 63594- 2009 August, Type 2 diabetes mellitus with diabetic neuropathy, without long-term current use of insulin E11.40 and Elevated liver enzymes R74.8 [facility] [address] [place] [address] 79296- 2778 Jul, [facility] [id number] [place] [address] 46789- 5929 Jul, Cough R05 [facility] [id number] [place] [address] 69914- 7148 Jul, [facility] [id number] [place] [address] 56745- 3717 Jul, [facility] [id number] [place] [address] 64344- 4617 Jul, Bipolar affective disorder, currently depressed, moderate F31.32 ; Vascular dementia without behavioral disturbance F01.50 and Generalized anxiety disorder F41.1 [facility] [address], [place] [address] 5[address] Jul, [facility] [address] [place] [address] 17255- 9609 Jul, Type 2 diabetes mellitus with diabetic neuropathy, without long-term current use of insulin E11.40 and Elevated liver enzymes R74.8 [facility] [address] [place] [address] 26924- 7131 Jul, [facility] [address], [place] [address] 0828 Jul, [facility] [id number] [place] [address] 58979- 4711 Jul, [facility] [id number] [place] [address] 66228- 3029 Jul, Post-menopausal Z78.0 [facility] [id number] [place] [address] 21841- 1932 Jul, Stress incontinence of urine N39.3 [facility] [address] 12124- 4231 Jul, [facility] [address] 83767- 1838 Jul, [facility] [address] 95343- 8073 Jul, Stress incontinence of urine N39.3 and Cough R05 [facility] [address] 08986- 2857 Jul, [facility] [address] 66082- 0233 Jul, [facility] [id number] [place] [address] 70079- 8564 Jul, [facility] [id number] [place] [address] 93773- 7562 Jul, Gastroesophageal reflux disease, esophagitis presence not specified K21.9 [facility] [id number] [place] [address] 42477- 3725 Jun, Diabetic polyneuropathy associated with type 2 diabetes mellitus E11.42 [facility] [id number] [place] [address] 73371- 0242 Jun, Diabetic polyneuropathy associated with type 2 diabetes mellitus E11.42 ; Coronary artery disease involving [place] coronary artery of [place] 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 I25.118 and Paroxysmal atrial fibrillation I48.0 [facility] [id number] [place] [address] 20669- 4366 Jun, [place] [address], [place] [address] 5[address] Jun, [facility] [address], [place] [address] 7184 Jun, Gastroenteritis K52.9 [facility] [address] [place] [address] 46685- 2460 Jun, Gastroenteritis K52.9 [facility] [id number] [place] [address] 93927- 4192 Jun, [facility] [id number] [place] [address] 41462- 5553 Jun, [facility] [id number] [place] [address] 86373- 5192 Jun, Sprain of right ankle, unspecified ligament, initial encounter S93.401A ; Type 2 diabetes mellitus with diabetic neuropathy, without long-term current use of insulin E11.40 ; Atherosclerosis of [place] artery of both lower extremities with intermittent claudication I70.213 ; Atherosclerotic heart disease of [place]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 I25.118 ; Chronic atrial fibrillation I48.2 and Crohn''s disease without complication, unspecified gastrointestinal tract location K50.90 [facility] [address], [place] [address] 17 Jun, 2017 Chronic obstructive pulmonary disease with acute lower respiratory infection J44.0 and Cough R05 [place] [address], [place] [address]- 6149 16 Jun, 2017 [facility] [address] [place] [address] 09128- 2375 15 Jun, 2017 Coughing R05 ; Unspecified atherosclerosis of [place] arteries of extremities, unspecified extremity I70.209 ; Type 2 diabetes mellitus with diabetic peripheral angiopathy without gangrene E11.51 ; Crohn''s disease without complication, unspecified gastrointestinal tract location K50.90 ; Other chronic pancreatitis K86.1 and Chronic atrial fibrillation I48.2 [facility] [address] [address] Jun, [facility] [id number] [place] [address] 57788- 8664 Jun, Bipolar affective disorder, currently depressed, moderate F31.32 ; Vascular dementia without behavioral disturbance F01.50 and Generalized anxiety disorder F41.1 [facility] [address], [place] [address] 6632 May, Generalized anxiety disorder F41.1 [facility] [id number] [place] [address] 02188- 8545 May, [facility] [id number] [place] [address] 38234- 4267 May, [facility] [id number] [place] [address] 54606- 4355 May, Coughing R05 [facility] [id number] [place] [address] 89886- 4188 May, [facility] [id number] [place] [address] 11942- 0384 May, Bipolar affective disorder, currently depressed, moderate F31.32 ; Vascular dementia without behavioral disturbance F01.50 and Generalized anxiety disorder F41.1 [facility] [address], [place] [address]- 5034 Apr, Generalized anxiety disorder F41.1 [facility] [address], [place] [address]- 0810 Apr, [facility] [address] [address] 5700 Apr, Vascular dementia without behavioral disturbance F01.50 ; Generalized anxiety disorder F41.1 and Bipolar affective disorder, currently depressed, moderate F31.32 [facility] [address], [place] [address]- 8604 Apr, Generalized anxiety disorder F41.1 [facility] [id number] [place] [address] 42932 -0638 Apr, Cough R05 and Acute exacerbation of chronic obstructive pulmonary disease (COPD) J44.1 [place] [id number] [place] [address] 52308- 9882 Apr, [facility] [id number] [place] [address] 23587 -7041 Mar, Cough R05 and Cigarette nicotine dependence without complication F17.210 [facility] [address] 38420- 9131 Mar, [place] [address] 96705- 5745 29 Feb, 2017 Generalized anxiety disorder F41.1 ; Major depressive disorder, recurrent episode, moderate F33.1 ; Vascular dementia without behavioral disturbance F01.50 and Unspecified psychosis F29 [place] [address] 52338- 7632 Feb, [place] [address] 39768- 8746 Feb, [place] [id number] [place] [address] 41606- 4309 Feb, Generalized anxiety disorder F41.1 [place] [id number] [place] [address] 40467- 8608 Feb, Generalized anxiety disorder F41.1 [place] [address] 02497- 1235 Feb, Dizziness R42 ; Chronic fatigue R53.82 ; Postconcussion syndrome F07.81 ; Fall, initial encounter W19.XXXA and Disorientation R41.0 [place] [id number] [place] [address] 57228- 7117 03 Feb, 2017 Postconcussion syndrome F07.81 ; Injury of head, initial encounter S09.90XA ; Fall, initial encounter W19.XXXA ; Disorientation R41.0 and Acute cystitis with hematuria N30.01 [place] [id number] [place] [address] 07977- 7898 Jan, Gastroesophageal reflux disease, esophagitis presence not specified K21.9 ; Post-menopausal Z78.0 and Migraine without aura and without status migrainosus, not intractable G43.009 [place] [address] 70925- 7721 Jan, [place] [address] 19913- 0223 Jan, Generalized anxiety disorder F41.1 ; Major depressive disorder, recurrent episode, moderate F33.1 ; Vascular dementia without behavioral disturbance F01.50 and Unspecified psychosis F29 [place] [address] 39559- 8619 Jan, Pneumonia of left lower lobe due to infectious organism J18.1 [place] [address] 68088- 0003 Jan, Migraine without aura and with status migrainosus, not intractable G43.001 [facility] [place] [address] 13256 -1197 Jan, Migraine without aura and without status migrainosus, not intractable G43.009 [place] [id number] [place] [address] 38236- 6066 Dec, Hematoma T14.8 [place] [address] 97087- 2442 Dec, [facility] [address] 38711 -7243 Nov, Fatigue, unspecified type R53.83 [place] [address] 23114- 8981 Nov, Scabies B86 and Coronary artery disease involving [place] coronary artery of [place] 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 I25.118 [place] [address], [place] [address]- 2602 Nov, [facility] [id number] [place] [address] 73545- 8780 Nov, [facility] [id number] [place] [address] 21464- 4148 Oct, [facility] [id number] [place] [address] 91539- 3987 Oct, Generalized anxiety disorder F41.1 and Major depressive disorder, recurrent episode, moderate F33.1 [facility] [id number] [place] [address] 30306- 2186 Oct, Cramp of both lower extremities R25.2 [facility] [id number] [place] [address] 94692- 8222 Oct, Leg cramps R25.2 [facility] [id number] [place] [address] 23171- 3701 Oct, Chronic pain syndrome G89.4 [facility] [id number] [place] [address] 88946- 1207 Oct, [facility] [address] [place] [address] 55762- 6123 Oct, [facility] [address] [place] [address] 66723- 2165 Oct, Routine gynecological examination Z01.419 and Screening for breast cancer Z12.31 [facility] [address] [place] [address] 16740- 1856 Sep, Diarrhea R19.7 [facility] [id number] [place] [address] 32480- 7242 Sep, Back pain M54.9 [facility] [address] [place] [address] 37847- 9511 Sep, [facility] [address] 40133- 0182 Sep, [facility] [address] 22718 -6671 August, Xeroderma Q80.9 [place] [address] 09556- 7216 August, Dementia without behavioral disturbance, unspecified dementia type F03.90 [place] [address] 42350- 3284 August, Chronic pain syndrome G89.4 [place] [address] 75575- 9790 August, [place] [address] 51997- 6387 August, Hyperlipidemia E78.5 ; Other fatigue R53.83 and Other specified hypotension I95.89 [facility] [address] 31715 -3440 August, Dysuria R30.0 ; Other fatigue R53.83 and Other specified hypotension I95.89 [place] [address] 34213- 3080 August, [place] [address] 65252- 4363 Jul, Pain in left knee M25.562 and Gastroenteritis K52.9 [place] [address] 07889- 0243 Jul, [place] [address] 58035- 5046 Jul, Diarrhea R19.7 [facility] [address] 71625 -2525 Jul, Spider bite, accidental or unintentional, initial encounter T63.301A [place] [address] 33993- 2694 Jul, Primary osteoarthritis of right knee M17.11 and Arthritis M19.90 [place] [address] [id number] [place] [address] 73104- 7997 10 Jul, 2016 Generalized anxiety disorder F41.1 and Major depressive disorder, recurrent episode, moderate F33.1 [place] [address] 07642- 8342 07 Jul, 2016 Type 2 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 and Temporal headache R51 [place] [address] 04296- 5037 Jul, Back pain M54.9 [place] [address] 59708- 5456 Jul, [place] [address] 71236- 0566 Jul, [place] [address] 82444- 1480 30 Jun, 2016 Nausea R11.0 [facility] [place] [address] 85275 -3247 23 Jun, 2016 Acute suppurative otitis media of both ears without spontaneous rupture of tympanic membranes, recurrence not specified H66.003 and COPD exacerbation J44.1 [place] [id number] [place] [address] 72563- 8245 Jun, Generalized anxiety disorder F41.1 [place] [address] 37676- 7072 16 Jun, 2016 [facility] [address] 69528 -0212 13 Jun, 2016 [facility] [address] 72590 -2418 13 Jun, 2016 Shortness of breath R06.02 and COPD exacerbation J44.1 [place] [address] 38610- 6561 Jun, Eczema, unspecified type L30.9 [facility] [id number] [place] [address] 21099- 4723 Jun, [facility] [address] 71580- 9949 May, [place] [address] 30868- 2580 May, Muscle cramping R25.2 [place] [address] 00970- 8879 May, [place] [address] 45704- 1727 Apr, Diarrhea R19.7 [place] [address] 56192- 7261 Apr, [place] [address] 24342- 3370 Apr, Chronic pain syndrome G89.4 [place] [address] [id number] [place] [address] 03810- 2851 Apr, Cramp of both lower extremities R25.2 and Vascular dementia without behavioral disturbance F01.50 [place] [address] [id number] [place] [address] 94129- 8915 Apr, Type 2 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 and Cigarette nicotine dependence without complication F17.210 [place] [id number] [place] [address] 74802- 2718 Mar, Generalized anxiety disorder F41.1 [place] [address] 20028- 7849 Feb, Generalized anxiety disorder F41.1 and Major depressive disorder, recurrent episode, moderate F33.1 [place] [id number] [place] [address] 88676- 8584 Feb, [facility] [address], [place] [address] Feb, Dysuria R30.0 and Acute cystitis with hematuria N30.01 [place] [id number] [place] [address] 63970- 8823 Jan, [facility] [id number] [place] [address] 42430- 4833 Jan, [place] [id number] [place] [address] 15512- 1643 Jan, [place] [address] [id number] [place] [address] 63992- 5764 Jan, [facility] [id number] [place] [address] 05437 -1676 Jan, Wasp sting, accidental or unintentional, initial encounter T63.461A [address] 19434- 7852 Jan, Encounter for immunization Z23 [place] [id number] [place] [address] 24918- 6671 Jan, [place] [id number] [place] [address] 77388- 6352 Jan, [place] [address] [place] [id number] [place] [address] 39967- 0992 Dec, Generalized anxiety disorder F41.1 and Major depressive disorder, recurrent episode, moderate F33.1 [place] [address] [place] [id number] [place] [address] 28952- 7274 Dec, Routine gynecological examination Z01.419 ; Postmenopausal Z78.0 ; Screening breast examination Z12.39 ; Osteopenia M85.80 and Breast cancer screening Z12.39 [place] [address] [place] [address] 67474- 2688 Dec, [place] [address] [place] [id number] [place] [address] 70161- 3430 Dec, [facility] [address] [facility] [id number] [place] [address]- 1180 16 Dec, 2015 [facility] [address] [facility] [id number] [place] [address] 4756 16 Dec, 2015 [facility] [address] [id number] [place] [address] 0226 14 Dec, 2015 [facility] [address] [facility] [id number] [place] [address]- 5689 06 Dec, 2015 [facility] [address] [id number] [place] [address] 9245 30 Nov, 2015 [facility] [id number] [place] [address] Nov, Cough R05 ; Other viral agents as the cause of diseases classified elsewhere B97.89 and Acute upper respiratory infection, unspecified J06.9 [facility] [address], [place] [address] 6729 Nov, [facility] [address] [id number], [place] [address] 6970 Nov, [facility] [address], [place] [address]- 6152 Nov, [facility] [address], [place] [address] 1631 Nov, [facility] [address], [place] [address]- 6854 Nov, [facility] [address] [id number], [place] [address] 7583 Oct, [facility] [address], [place] [address] 7552 Oct, [facility] [address] [id number], [place] [address] 7731 Oct, [facility] [id number] [place] [address] 79712- 1899 Oct, Chronic pain syndrome G89.4 [facility] [id number] [place] [address] 49783- 1713 Sep, Generalized anxiety disorder F41.1 and Major depressive disorder, recurrent episode, moderate F33.1 [facility] [id number] [place] [address] 47244- 7306 Sep, [facility] [id number] [place] [address] 09896- 0009 Sep, [facility] [id number] [place] [address] 23404- 9176 14 Sep, 2015 Generalized anxiety disorder F41.1 [facility] [facility] [id number] [place] [address] 62276- 4430 13 Sep, 2015 Cramp of both lower extremities R25.2 and Cervicalgia M54.2 [facility] [facility] [id number] [place] [address] 33859- 9581 Sep, Generalized anxiety disorder F41.1 [facility] [facility] [id number] [place] [address] 57468- 7998 Sep, [facility] [id number] [place] [address] 12088 -5665 August, Rash R21 ; Itching L29.9 and Allergic response, subsequent encounter T78.40XD [facility] [id number] [place] [address] 89095- 5330 August, Primary insomnia F51.01 [facility] [id number] [place] [address] 50278 -3105 August, Rash R21 ; Itching L29.9 and Allergic response, initial encounter T78.40XA [facility] [id number] [place] [address] 20477- 1976 August, [facility] [id number] [place] [address] 14196- 3892 August, Cramp of both lower extremities R25.2 [facility] [address] [facility] [id number], [place] [address]- 4906 August, Back pain M54.9 [facility] [address] [facility] [id number], [place] [address]- 0727 August, [facility] [address], [place] [address]- 4586 August, [facility] [address] [facility] [id number], [place] [address] August, Cramp of both lower extremities R25.2 [facility] [address] [facility] [id number], [place] [address]- 0565 August, [facility] [address], [place] [address]- 1222 August, Syncope R55 ; Paroxysmal atrial fibrillation I48.0 ; Dementia without behavioral disturbance, unspecified dementia type F03.90 and Chronic pain syndrome G89.4 [facility] [address]00565100[place], [place] [address]- 7742 August, Type 2 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 and Syncope R55 [facility] [address]65[address], [place] [address]- 6415 Jul, [facility] [address]65[address], [place] [address]- 6694 Jul, [facility] [address], [place] [address]- 2702 Jul, [facility] [address]00565[address], [place] [address]- 0251 Jul, [facility] [address] [facility] [id number], [place] [address]- 7558 Jul, [facility] [address], [place] [address]- 9625 Jul, UTI (urinary tract infection) N39.0 [facility] [address]00565[address], [place] [address]- 5556 Jul, [facility] [address]65[address], [place] [address] 2546 18 Jul, 2015 Major depressive disorder, recurrent episode, moderate F33.1 and Generalized anxiety disorder F41.1 [facility] [address] [place] [address] 60531- 3426 Jul, Generalized anxiety disorder F41.1 [facility] [address]00565[address], [place] [address]- 3121 Jul, Diarrhea R19.7 [facility] [address] [place] [address] 61028- 7456 Jul, [facility] [id number] [place] [address] 54432- 1619 Jun, [facility] [address] [place] [address] 15611 2542 Jun, Eczema L30.9 [facility] [address] [place] [address] 41980 2546 Jun, [facility] [address], [place] [address] 2544 Jun, COPD (chronic obstructive pulmonary disease) J44.9 [facility] [address]65[address], [place] [address] 2546 16 Jun, 2015 [facility] [address] [id number], [place] [address] 2541 Jun, Major depressive disorder, recurrent episode, moderate F33.1 and Generalized anxiety disorder F41.1 [facility] [address] [id number], [place] [address]- 2546 May, [facility] [address], [place] [address]- 6946 May, UTI (urinary tract infection) N39.0 [facility] [address]65[address], [place] [address]- 7341 May, [facility] [address], [place] [address]- 3856 May, [facility] [address], [place] [address]- 7739 May, [facility] [id number] [place] [address] 74619- 5761 May, [facility] [address], [place] [address]- 3962 Apr, Major depressive disorder, recurrent episode, moderate F33.1 and Generalized anxiety disorder F41.1 [facility] [address], [place] [address]- 0308 Apr, COPD (chronic obstructive pulmonary disease) J44.9 [facility] [address], [place] [address]- 1829 Apr, [facility] [address], [place] [address]- 0248 Apr, Atrial flutter I48.92 [facility] [address], [place] [address]- 8654 Apr, [facility] [address], [place] [address]- 1964 Apr, [facility] [address], [place] [address]- 9410 Mar, [facility] [address], [place] [address]- 0063 Mar, [facility] [address], [place] [address]- 3574 Mar, [facility] [address], [place] [address]- 6183 Mar, Hyperlipidemia E78.5 ; Type 2 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 ; Major depressive disorder, recurrent episode, moderate F33.1 and Chronic pain syndrome G89.4 [facility] [id number] [place] [address] 88041- 8075 16 Mar, 2015 [facility] [id number] [place] [address] 26292- 6114 Mar, [facility] [id number] [place] [address] 91374- 9700 Mar, [facility] [id number] [place] [address] 23871- 8402 Mar, [facility] [id number] [place] [address] 71656- 8511 Feb, COPD (chronic obstructive pulmonary disease) J44.9 and Back pain M54.9 [facility] [id number] [place] [address] 04601- 9049 Feb, [facility] [id number] [place] [address] 88463- 8406 Feb, [facility] [id number] [place] [address] 88650- 6193 Feb, [facility] [id number] [place] [address] 25031- 8449 Feb, [facility] [id number] [place] [address] 24537- 8522 Feb, [facility] [id number] [place] [address] 25605- 6459 Feb, [facility] [id number] [place] [address] 62558- 2967 Feb, [facility] [id number] [place] [address] 82465- 2942 Feb, [facility] [id number] [place] [address] 33023- 0310 Feb, Diabetes E11.9 ; Back pain M54.9 and COPD (chronic obstructive pulmonary disease) J44.9 [facility] [id number] [place] [address] 32108- 0394 Jan, [facility] [id number] [place] [address] 94187- 3361 Jan, Major depression, recurrent F33.9 and Generalized anxiety disorder F41.1 [facility] [id number] [place] [address] 12162- 1910 Jan, Chronic pain G89.29 [facility] [id number] [place] [address] 82336- 2981 Jan, [facility] [id number] [place] [address] 60360- 7714 Jan, [facility] [id number] [place] [address] 87332- 3859 Jan, [facility] [id number] [place] [address] 38163- 0842 Jan, [facility] [id number] [place] [address] 59224- 6749 Jan, Nicotine dependence F17.200 [facility] [id number] [place] [address] 44352- 7729 Jan, Nicotine dependence F17.200 and Back pain M54.9 [facility] [id number] [place] [address] 14521- 6112 Jan, [facility] [id number] [place] [address] 06184- 8819 Dec, [facility] [id number] [place] [address] 57814- 5539 Dec, Anxiety, generalized 300.02 and Major depression, recurrent 296.30 [facility] [id number] [place] [address] 19965- 2738 Dec, [facility] [address], [place] [address]- 9423 21 Dec, 2014 [facility] [address], [place] [address]- 9660 17 Dec, 2014 [facility] [address], [place] [address]- 5309 15 Dec, 2014 [facility] [address] [place] [address] 30894- 9439 14 Dec, 2014 [facility] [address] [place] [address] 42525- 8456 11 Dec, 2014 [facility] [id number] [place] [address] 25057- 4358 10 Dec, 2014 [facility] [address] [place] [address] 45496- 0273 08 Dec, 2014 Skin tear 879.8 [facility] [address] [place] [address] 90973- 8004 08 Dec, 2014 Routine gynecological examination V72.31 ; Breast cancer screening V76.10 and Family history of breast cancer in first degree relative V16.3 [facility] [address] [place] [address] 64441- 3314 03 Dec, 2014 [facility] [address], [place] [address]- 9269 Dec, [facility] [address], [place] [address]- 0639 Nov, [facility] [address], [place] [address]- 1675 Nov, [facility] [id number] [place] [address] 98094- 7194 Nov, Poor balance 781.99 and Vascular dementia, uncomplicated 290.40 [facility] [address], [place] [address]- 5011 Nov, [facility] [address], [place] [address]- 1889 Nov, Major depression, recurrent 296.30 and Anxiety, generalized 300.02 [facility] [id number] [place] [address] 57815- 6176 Nov, [facility] [id number] [place] [address] 66603- 2911 Nov, [facility] [id number] [place] [address] 30488- 2868 Nov, [facility] [id number] [place] [address] 57613- 6419 Nov, [facility] [id number] [place] [address] 53145- 1705 Nov, Vascular dementia, uncomplicated 290.40 and Lumbago 724.2 [facility] [id number] [place] [address] 46276- 6995 Nov, [facility] [id number] [place] [address] 39440- 4408 Nov, [facility] [id number] [place] [address] 98326- 6054 Nov, [facility] [id number] [place] [address] 06890- 4004 Oct, [facility] [id number] [place] [address] 24885- 4400 Oct, [facility] [address] [place] [address] 23561- 5192 Oct, [facility] [id number] [place] [address] 79891- 8585 Oct, COPD (chronic obstructive pulmonary disease) 496 and Hyperlipidemia 272.4 [facility] [address] [place] [address] 67766- 8234 Oct, Major depression, recurrent 296.30 and Anxiety, generalized 300.02 [facility] [address], [place] [address]- 7757 16 Oct, 2014 [facility] [address], [place] [address]- 9272 Oct, [facility] [address], [place] [address]- 9369 Oct, [facility] [id number] [place] [address] 60226- 7771 Sep, Lumbago 724.2 and Anxiety state, unspecified 300.00 [facility] [id number] [place] [address] 39983- 3071 Sep, [facility] [id number], [place] [address]- 2464 Sep, [facility] [id number] [place] [address] 94956- 3399 August, [facility] [id number], [place] [address]- 9559 August, Major depression, recurrent 296.30 ; Anxiety, generalized 300.02 and No condition on Malone II V71.09 [facility] [address], [place] [address]- 0010 August, [facility] [address], [place] [address]- 3484 August, [facility] [address], [place] [address]- 1109 Jul, [facility] [address], [place] [address]- 3784 Jul, [facility] [address], [place] [address]- 4400 Jul, [facility] [address], [place] [address]- 1925 Jun, [facility] [address] [id number] [place] [address]- 5899 30 Jun, 2014 [facility] [place] [facility] [address] [id number] [place] [address]- 0582 27 Jun, 2014 [facility] [place] [facility] [address] [id number] [place] [address]- 8796 27 Jun, 2014 [facility] [place] [facility] [address] [id number] [place] [address]- 1964 26 Jun, 2014 [facility] [place] [facility] [address] [id number] [place] [address]- 8012 Jun, [facility] [place] [facility] [address] [id number] [place] [address]- 9067 Jun, [facility] [place] [facility] [address] [id number] [place] [address]- 8167 17 Jun, 2014 [facility] [place] [facility] [address] [id number] [place] [address]- 4761 Jun, [facility] [place] [facility] [address] [id number] [place] [address]- 9950 13 Jun, 2014 [facility] [place] [facility] [address] [id number] [place] [address]- 7469 10 Jun, 2014 [facility] [place] [facility] [address] [id number] [place] [address]- 4800 Jun, [facility] [place] [facility] [address] [id number] [place] [address]- 6532 Jun, [facility] [place] [facility] [address] [id number] [place] [address]- 3510 Jun, [facility] [place] [facility] [address] [id number] [place] [address]- 3191 Jun, [facility] [place] [facility] [address] [id number] [place] [address]- 2936 Jun, [facility] [place] [facility] [address] [id number] [place] [address]- 1029 May, [facility] [place] [facility] [address] [id number] [place] [address]- 3449 May, 2014 [facility] [place] [facility] [address] [id number] [place] [address]- 7206 May, 2014 [facility] [place] [facility] [address] [id number] [place] [address] 2546 May, 2014 [facility] [place] [facility] [address] [id number] [place] [address] 2546 May, 2014 [facility] [place] [facility] [address] [id number] [place] [address] 2540 May, 2014 [facility] [place] [facility] [address] [id number] [place] [address]- 5256 May, 2014 [facility] [place] [facility] [address] [id number] [place] [address]- 8456 May, 2014 [facility] [place] [facility] [address] [id number] [place] [address]- 8989 May, 2014 [facility] [place] [facility] [address] [id number] [place] [address]- 1559 May, 2014 [facility] [place] [facility] [address] [facility] [id number] [place] [address]- 4388 May, 2014 [facility] [place] [facility] [address] [id number] [place] [address]- 4712 May, 2014 [facility] [place] [facility] [address] [id number] [place] [address] 2546 May, 2014 [facility] [place] [facility] [address] [id number] [place] [address]- 2546 May, 2014 [facility] [place] [facility] [address] [id number] [place] [address]- 8123 Apr, [facility] [place] [facility] [address] [id number] [place] [address]- 2546 Apr, [facility] [place] [facility] [address] [id number] [place] [address]- 6896 Apr, [facility] [address] [id number] [place] [address]- 4444 Apr, [facility] [place] [facility] [address] [id number] [place] [address]- 9616 Apr, [facility] [address] [id number] [place] [address]- 1238 Apr, [facility] [address] [id number] [place] [address]- 3746 Apr, [facility] [address] [id number] [place] [address]- 8203 Apr, [facility] [address] [id number] [place] [address]- 5158 Apr, [facility] [address] [id number] [place] [address]- 0300 Apr, [facility] [address] [id number] [place] [address]- 4937 Apr, [facility] [address] [id number] [place] [address]- 0587 Apr, [facility] [address] [id number] [place] [address]- 5449 Mar, [facility] [place] [facility] [address] [id number] [place] [address] Mar, [facility] [place] [facility] [address] [id number] [place] [address] Mar, [facility] [place] [facility] [address] [id number] [place] [address] Mar, [facility] [place] [facility] [address] [id number] [place] [address] Mar, [facility] [place] [facility] [address] [id number] [place] [address] Mar, [facility] [place] [facility] [address] [id number] [place] [address] Mar, [facility] [place] [facility] [address] [id number] [place] [address] Mar, [facility] [place] [facility] [address] [id number] [place] [address] 15 Mar, 2014 [facility] [place] [facility] [address] [id number] [place] [address] 15 Mar, 2014 [facility] [place] [facility] [address] [id number] [place] [address] 15 Mar, 2014 [facility] [place] [facility] [address] [id number] [place] [address] Mar, [facility] [place] [facility] [address] [id number] [place] [address] Mar, [facility] [place] [facility] [address] [id number] [place] [address] Mar, [facility] [place] [facility] [address] [id number] [place] [address] Mar, [facility] [place] [facility] [address] [id number] [place] [address] Mar, [facility] [place] [facility] [address] [id number] [place] [address] Mar, [facility] [place] [facility] [address] [id number] [place] [address] Mar, [facility] [place] [facility] [address] [id number] [place] [address] Mar, [facility] [place] [facility] [address] [id number] [place] [address] Mar, [facility] [place] [facility] [address] [id number] [place] [address] Feb, [facility] [place] [facility] [address] [id number] [place] [address] Feb, [facility] [place] [facility] [address] [id number] [place] [address] Feb, [facility] [place] [facility] [address] [id number] [place] [address] Feb, [facility] [place] [facility] [address] [id number] [place] [address] Feb, [facility] [place] [facility] [address] [id number] [place] [address] Feb, [facility] [place] [facility] [address] [id number] [place] [address] Feb, [facility] [place] [facility] [address] [id number] [place] [address] Feb, [facility] [place] [facility] [address] [id number] [place] [address] Feb, [facility] [place] [facility] [address] [id number] [place] [address] Feb, [facility] [place] [facility] [address] [id number] [place] [address] Feb, [facility] [place] [facility] [address] [id number] [place] [address] Feb, [facility] [place] [facility] [address] [id number] [place] [address] Feb, [facility] [place] [facility] [address] [id number], [place] [address] Feb, [facility] [place] [facility] [address] [id number], [place] [address] Feb, [facility] [place] [facility] [address] [id number], [place] [address] Feb, [facility] [place] [facility] [address] [id number], [place] [address] Feb, [facility] [place] [facility] [address] [id number] [place] [address] Jan, [facility] [place] [facility] [address] [id number] [place] [address] Jan, [facility] [place] [facility] [address] [id number] [place] [address]- [address] Jan, [facility] [place] [facility] [address] [id number] [place] [address] Jan, [facility] [place] [facility] [address] [id number] [place] [address] 7111 Jan, [facility] [place] [facility] [address] [id number] [place] [address] 3199 Jan, [facility] [place] [facility] [address] [id number] [place] [address] 1954 Jan, [facility] [place] [facility] [address] [id number] [place] [address] 2209 Jan, [facility] [place] [facility] [address] [id number] [place] [address] 2998 Jan, [facility] [place] [facility] [address] [id number] [place] [address] 2167 Jan, [facility] [place] [facility] [address] [id number] [place] [address] 4193 Jan, [facility] [place] [facility] [address] [id number] [place] [address] 8338 Dec, [facility] [place] [facility] [address] [id number] [place] [address]- 8606 Dec, [facility] [place] [facility] [address] [id number] [place] [address] 7472 Nov, [facility] [place] [facility] [address] [id number] [place] [address]- 4299 Nov, [facility] [place] [facility] [address] [id number] [place] [address]- 9368 Nov, [facility] [place] [facility] [address] [id number] [place] [address]- 5832 Nov, [facility] [place] [facility] [address] [id number] [place] [address]- 7712 Nov, [facility] [place] [facility] [address] [id number] [place] [address] Nov, [facility] [place] [facility] [address] [id number] [place] [address]- 3849 Nov, [facility] [place] [facility] [address] [id number] [place] [address]- 2161 Oct, [facility] [place] [facility] [address] [id number] [place] [address]- 3356 Oct, [facility] [place] [facility] [address] [id number] [place] [address]- 0421 Oct, [facility] [place] [facility] [address] [id number] [place] [address]- 2973 Oct, [facility] [place] [facility] [address] [id number] [place] [address]- 8324 Sep, [facility] [place] [facility] [address] [id number] [place] [address]- 6526 Sep, [facility] [place] [facility] [address] [id number] [place] [address]- 1329 Sep, [facility] [place] [facility] [address] [id number], [place] [address]- 4795 Sep, [facility] [place] [facility] [address] [id number] [place] [address]- 1456 Sep, [facility] [place] [facility] [address] [id number] [place] [address]- 6829 Sep, [facility] [place] [facility] [address] [id number] [place] [address]- 3866 Sep, [facility] [place] [facility] [address] [id number] [place] [address]- 4980 Sep, [facility] [place] [facility] [address] [id number] [place] [address]- 7715 Sep, [facility] [place] [facility] [address] [id number] [place] [address]- 8270 Sep, [facility] [place] [facility] [address] [id number] [place] [address]- 7784 Sep, [facility] [place] [facility] [address] [id number] [place] [address]- 6406 Sep, [facility] [place] [facility] [address] [id number] [place] [address]- 1852 Sep, [facility] [place] [facility] [address] [id number] [place] [address]- 5524 Sep, [facility] [place] [facility] [address] [id number] [place] [address]- 2708 August, [facility] [place] [facility] [address] [id number] [place] [address]- 3659 August, [facility] [place] [facility] [address] [id number] [place] [address]- 7551 August, [facility] [place] [facility] [address] [id number] [place] [address]- 4379 August, [facility] [place] [facility] [address] [id number] [place] [address] 1931 August, [facility] [place] [facility] [address] [id number] [place] [address]- 4178 August, [facility] [place] [facility] [address] [id number] [place] [address]- 0218 August, [facility] [place] [facility] [address] [id number] [place] [address]- 7732 August, [facility] [place] [facility] [address] [id number] [place] [address]- 1535 August, [facility] [place] [facility] [address] [id number] [place] [address]- 0855 August, [facility] [address] [id number] [place] [address]- 1143 August, [facility] [address] [id number] [place] [address]- 4103 August, [facility] [place] [facility] [address] [id number] [place] [address]- 2028 August, [facility] [address] [id number] [place] [address]- 4954 August, [facility] [place] [facility] [address] [id number] [place] [address]- 9409 August, [facility] [address] [id number] [place] [address]- 8603 August, [facility] [address] [id number] [place] [address]- 6598 August, [facility] [address] [id number] [place] [address]- 9134 August, [facility] [place] [facility] [address] [id number] [place] [address]- 9835 August, [facility] [place] [facility] [address] [id number] [place] [address]- 4546 Jul, [facility] [place] [facility] [address] [id number] [place] [address]- 0591 Jul, [facility] [place] [facility] [address] [id number] [place] [address]- 9231 Jul, [facility] [place] [facility] [address] [id number] [place] [address]- 7410 Jul, [facility] [place] [facility] [address] [id number] [place] [address]- 5144 Jun, [facility] [place] [facility] [address] [id number], [place] [address]- 0511 Jun, [facility] [place] [facility] [address] [id number] [place] [address]- 7459 Jun, [facility] [place] [facility] [address] [id number] [place] [address]- 6355 24 Jun, 2013 [facility] [place] [facility] [address] [id number] [place] [address]- 8583 Jun, [facility] [place] [facility] [address] [id number] [place] [address]- 6752 17 Jun, 2013 [facility] [place] [facility] [address] [id number] [place] [address]- 3886 Jun, [facility] [place] [facility] [address] [id number] [place] [address]- 5792 Jun, [facility] [place] [facility] [address] [facility] [id number] [place] [address]- 0852 Jun, [facility] [place] [facility] [address] [id number] [place] [address]- 4166 Jun, [facility] [place] [facility] [address] [id number] [place] [address]- 5323 May, [facility] [place] [facility] [address] [id number] [place] [address]- 2970 May, [facility] [place] [facility] [address] [id number] [place] [address]- 4261 May, [facility] [place] [facility] [address] [id number] [place] [address]- 1580 May, [facility] [place] [facility] [address] [id number] [place] [address]- 1906 May, [facility] [place] [facility] [address] [id number] [place] [address]- 0412 May, [facility] [place] [facility] [address] [id number] [place] [address]- 4017 May, [facility] [place] [facility] [address] [id number] [place] [address]- 1507 May, [facility] [place] [facility] [address] [id number] [place] [address]- 4846 May, [facility] [place] [facility] [address] [id number] [place] [address]- 6146 May, [facility] [place] [facility] [address] [id number] [place] [address]- 2939 May, [facility] [place] [facility] [address] [id number] [place] [address]- 7258 May, [facility] [place] [facility] [address] [id number] [place] [address]- 9639 May, [facility] [place] [facility] [address] [id number] [place] [address]- 0166 May, [facility] [place] [facility] [address] [id number] [place] [address]- 5787 May, [facility] [place] [facility] [address] [id number] [place] [address]- 9709 May, [facility] [place] [facility] [address] [id number] [place] [address]- 8236 May, [facility] [place] [facility] [address] [id number] [place] [address]- 9146 Apr, [facility] [place] [facility] [address] [id number] [place] [address]- 6149 Apr, [facility] [place] [facility] [address] [id number] [place] [address]- 3762 Apr, [facility] [place] [facility] [address] [id number] [place] [address]- 2378 Apr, [facility] [place] [facility] [address] [id number] [place] [address]- 1866 Apr, [facility] [place] [facility] [address] [id number] [place] [address]- 6096 07 Apr, 2013 [facility] [address] [id number] [place] [address]- 0689 Apr, [facility] [address] [id number] [place] [address]- 9664 30 Mar, 2013 [facility] [address] [id number] [place] [address]- 2647 Mar, [facility] [address] [id number] [place] [address]- 5875 Mar, [facility] [address] [id number] [place] [address]- 8887 Mar, [facility] [address] [id number] [place] [address]- 8426 Mar, [facility] [address] [id number] [place] [address]- 7578 Mar, [facility] [address] [id number] [place] [address]- 3508 Mar, [facility] [address] [id number] [place] [address]- 6148 Mar, [facility] [address] [id number] [place] [address]- 5171 Mar, [facility] [address] [id number] [place] [address]- 2962 Mar, [facility] [address] [id number] [place] [address]- 7796 Mar, [facility] [address] [id number] [place] [address]- 4905 Feb, [facility] [address] [id number] [place] [address]- 2546 Feb, [facility] [address] [id number] [place] [address]- 1937 Feb, [facility] [place] [facility] [address] [id number] [place] [address]- 1704 20 Feb, 2013 [facility] [place] [facility] [address] [id number] [place] [address]- 5235 19 Feb, 2013 [facility] [place] [facility] [address] [id number] [place] [address]- 5605 19 Feb, 2013 [facility] [place] [facility] [address] [id number] [place] [address]- 7311 15 Feb, 2013 [facility] [place] [facility] [address] [id number] [place] [address]- 9631 14 Feb, 2013 [facility] [place] [facility] [address] [id number] [place] [address]- 9381 14 Feb, 2013 [facility] [place] [facility] [address] [id number] [place] [address]- 4463 13 Feb, 2013 [facility] [place] [facility] [address] [id number], [place] [address]- 0974 13 Feb, 2013 [facility] [place] [facility] [address] [id number] [place] [address]- 6722 Feb, [facility] [place] [facility] [address] [id number], [place] [address]- 4163 Feb, [facility] [place] [facility] [address] [id number], [place] [address]- 0745 Feb, [facility] [place] [facility] [address] [id number], [place] [address]- 9647 05 Feb, 2013 [facility] [place] [facility] [address] [id number], [place] [address]- 8469 Feb, [facility] [place] [facility] [address] [id number], [place] [address]- 4921 Jan, [facility] [place] [facility] [address] [id number], [place] [address]- 5155 24 Jan, 2013 [facility] [place] [facility] [address] [id number], [place] [address]- 9075 Jan, [facility] [place] [facility] [address] [id number] [place] [address]- 8690 Jan, [facility] [place] [facility] [address] [id number] [place] [address]- 0588 Jan, [facility] [place] [facility] [address] [id number] [place] [address]- 1053 Jan, [facility] [place] [facility] [address] [id number] [place] [address]- 1009 Jan, [facility] [place] [facility] [address] [id number] [place] [address]- 3955 Jan, [facility] [place] [facility] [address] [id number] [place] [address]- 2811 Jan, [facility] [place] [facility] [address] [id number] [place] [address]- 2582 Dec, [facility] [place] [facility] [address] [id number] [place] [address]- 2361 20 Dec, 2012 [facility] [place] [facility] [address] [id number] [place] [address]- 8055 19 Dec, 2012 [facility] [place] [facility] [address] [id number] [place] [address]- 9289 10 Dec, 2012 [facility] [place] [facility] [address] [id number] [place] [address] 2549 04 Dec, 2012 [facility] [place] [facility] [address] [id number] [place] [address]- 2545 Dec, [facility] [place] [facility] [address] [id number] [place] [address]- 8814 Nov, [facility] [place] [facility] [address] [id number] [place] [address]- 8862 Nov, [facility] [place] [facility] [address] [id number] [place] [address]- 8935 Nov, [facility] [place] [facility] [address] [id number] [place] [address]- 9742 Nov, [facility] [place] [facility] [address] [id number] [place] [address]- 3645 Nov, [facility] [place] [facility] [address] [id number] [place] [address]- 2859 Nov, [facility] [place] [facility] [address] [id number] [place] [address]- 7570 Nov, [facility] [place] [facility] [address] [id number] [place] [address]- 0764 Nov, [facility] [place] [facility] [address] [id number] [place] [address]- 3094 Nov, [facility] [place] [facility] [address] [id number] [place] [address]- 2411 Nov, [facility] [place] [facility] [address] [id number] [place] [address]- 1160 Oct, [facility] [place] [facility] [address] [id number] [place] [address]- 3900 Oct, [facility] [place] [facility] [address] [id number] [place] [address]- 3064 Oct, [facility] [place] [facility] [address] [id number] [place] [address]- 9764 Oct, [facility] [place] [facility] [address] [id number] [place] [address]- 8690 Oct, [facility] [place] [facility] [address] [id number] [place] [address]- 1672 Oct, [facility] [place] [facility] [address] [id number] [place] [address]- 9717 Oct, [facility] [place] [facility] [address] [id number] [place] [address]- 9776 Oct, [facility] [place] [facility] [address] [id number] [place] [address]- 0025 Sep, [facility] [address] [id number] [place] [address]- 8653 Sep, [facility] [place] [facility] [address] [id number] [place] [address]- 7219 Sep, [facility] [place] [facility] [address] [id number] [place] [address]- 7767 Sep, [facility] [place] [facility] [address] [id number] [place] [address]- 2517 Sep, [facility] [address] [id number] [place] [address]- 8021 Sep, [facility] [place] [facility] [address] [id number] [place] [address]- 1204 Sep, [facility] [place] [facility] [address] [id number] [place] [address]- 9600 Sep, [facility] [place] [facility] [address] [id number] [place] [address]- 3915 August, [facility] [place] [facility] [address] [id number] [place] [address]- 6644 August, [facility] [place] [facility] [address] [id number] [place] [address]- 7263 August, [facility] [place] [facility] [address] [id number] [place] [address]- 0791 August, [facility] [place] [facility] [address] [id number], [place] [address]- 3531 August, [facility] [place] [facility] [address] [id number] [place] [address]- 2262 Jul, [facility] [place] [facility] [address] [id number] [place] [address]- 7861 Jul, [facility] [place] [facility] [address] [id number] [place] [address]- 1902 Jul, [facility] [place] [facility] [address] [id number] [place] [address]- 7375 04 Jul, 2012 [facility] [address] [id number] [place] [address]- 4200 Jul, [facility] [place] [facility] [address] [id number] [place] [address]- 7206 18 Jun, 2012 [facility] [address] [id number] [place] [address]- 4762 18 Jun, 2012 [facility] [place] [facility] [address] [id number] [place] [address]- 3398 15 Jun, 2012 [facility] [address] [id number] [place] [address]- 7482 14 Jun, 2012 [facility] [place] [facility] [address] [id number] [place] [address]- 9088 Jun, [facility] [address] [id number] [place] [address]- 8051 Jun, [facility] [address] [id number] [place] [address]- 3334 08 Jun, 2012 [facility] [address] [id number] [place] [address]- 4331 Jun, [facility] [place] [facility] [address] [facility] [id number] [place] [address]- 9872 Jun, [facility] [place] [facility] [address] [id number] [place] [address] 27 May, 2012 [facility] [place] [facility] [address] [id number] [place] [address] May, [facility] [place] [facility] [address] [id number] [place] [address] 20 May, 2012 [facility] [place] [facility] [address] [id number] [place] [address] 12 May, 2012 [facility] [place] [facility] [address] [id number] [place] [address] 15 Apr, 2012 [facility] [address] [id number] [place] [address] Apr, [facility] [address] [id number] [place] [address] Apr, [facility] [address] [id number] [place] [address] Apr, [facility] [address] [id number] [place] [address] Apr, [facility] [address] [id number] [place] [address] Apr, [facility] [address] [id number] [place] [address] Apr, [facility] [address] [facility] [id number] [place] [address] Mar, [facility] [address] [place] [id number] Mar, [facility] [address] [id number] [place] [address] Mar, [facility] [address] [id number] [place] [address] 3516 Mar, [facility] [address] [facility] [id number] [place] [address] Mar, [facility] [address] [id number] [place] [address] Mar, [facility] [address] [id number] [place] [address] Mar, [facility] [address] [id number] [place] [address] Mar, [facility] [address] [id number] [place] [address] Mar, [facility] [address] [id number] [place] [address] Mar, [facility] [place] [facility] [address] [id number] [place] [address] 2769 Mar, [facility] [place] [facility] [address] [id number] [place] [address] Mar, [facility] [place] [facility] [address] [id number] [place] [address] Mar, [facility] [place] [facility] [address] [id number] [place] [address] Mar, [facility] [place] [facility] [address] [id number] [place] [address] Mar, [facility] [place] [facility] [address] [id number] [place] [address] Mar, [facility] [place] [facility] [address] [id number] [place] [address] 5870 Mar, [facility] [place] [facility] [address] [id number] [place] [address] Feb, [facility] [place] [facility] [address] [id number] [place] [address] 6[address] Feb, [facility] [place] [facility] [address] [id number] [place] [address] Feb, [facility] [place] [facility] [address] [id number], [place] [address] Feb, [facility] [place] [facility] [address] [id number], [place] [address] Feb, [facility] [place] [facility] [address] [id number] [place] [address] Feb, [facility] [place] [facility] [address] [id number], [place] [address] Feb, [facility] [place] [facility] [address] [id number] [place] [address] Feb, [facility] [place] [facility] [address] [id number] [place] [address]- 6766 16 Feb, 2012 [facility] [place] [facility] [address] [id number] [place] [address] 16 Feb, 2012 [facility] [place] [facility] [address] [id number] [place] [address]- [address] Feb, [facility] [place] [facility] [address] [id number] [place] [address]116 Feb, [facility] [place] [facility] [address] [id number] [place] [address] Feb, [facility] [place] [facility] [address] [id number] [place] [address]891 Feb, [facility] [place] [facility] [address] [id number] [place] [address] 2074 Feb, [facility] [place] [facility] [address] [id number] [place] [address] Feb, [facility] [place] [facility] [address] [id number] [place] [address] 1227 Jan, [facility] [place] [facility] [address] [id number] [place] [address]- 9291 Jan, [facility] [place] [facility] [address] [facility] [id number] [place] [address] 8710 Jan, [facility] [place] [facility] [address] [id number] [place] [address]- 7046 Jan, [facility] [place] [facility] [address] [id number], [place] [address]- [address] Jan, [facility] [place] [facility] [address] [id number] [place] [address]- 8664 Jan, [facility] [place] [facility] [address] [facility] [id number] [place] [address] Jan, [facility] [place] [facility] [address] [id number], [place] [address] Jan, [facility] [place] [facility] [address] [id number] [place] [address]90 17 Jan, 2012 [facility] [place] [facility] [address] [id number] [place] [address]44 17 Jan, 2012 [facility] [place] [facility] [address] [id number] [place] [address]- [address] Jan, [facility] [place] [facility] [address] [id number] [place] [address]- [address]100 Jan, [facility] [place] [facility] [address] [id number] [place] [address]- 7213 Jan, [facility] [place] [facility] [address] [id number] [place] [address]- 7468 Jan, [facility] [place] [facility] [address] [id number] [place] [address]- 3984 08 Jan, 2012 [facility] [place] [facility] [address] [id number] [place] [address]- 7865 05 Jan, 2012 [facility] [place] [facility] [address] [id number] [place] [address]- 3772 04 Jan, 2012 [facility] [place] [facility] [address] [id number] [place] [address] 3670 21 Dec, 2011 [facility] [place] [facility] [address] [id number] [place] [address]- 7742 20 Sep, 2011 [facility] [place] [facility] [address] [id number] [place] [address]- 6551 18 Sep, 2011 [facility] [place] [facility] [address] [id number] [place] [address]- 8563 18 Sep, 2011 [facility] [place] [facility] [address] [id number] [place] [address]- 2549 10 Sep, 2011 [facility] [place] [facility] [address] [id number] [place] [address]- [address]60 10 Dec, 2011 [facility] [place] [facility] [address] [id number] [place] [address]- 7275 Dec, [facility] [place] [facility] [address] [id number] [place] [address]- 0831 Dec, [facility] [place] [facility] [address] [id number] [place] [address]- 8606 Nov, [facility] [place] [facility] [address] [id number] [place] [address]- 4976 Nov, [facility] [place] [facility] [address] [id number] [place] [address]- 3[address] Nov, [facility] [place] [facility] [address] [id number] [place] [address] Nov, [facility] [place] [facility] [address] [id number] [place] [address] Nov, [facility] [place] [facility] [address] [id number] [place] [address] Nov, [facility] [place] [facility] [address] [id number] [place] [address] Oct, [facility] [place] [facility] [address] [id number] [place] [address] Oct, [facility] [place] [facility] [address] [id number] [place] [address] Oct, [facility] [place] [facility] [address] [id number] [place] [address] Oct, [facility] [place] [facility] [address] [id number] [place] [address] Oct, [facility] [place] [facility] [address] [id number] [place] [address] Oct, [facility] [place] [facility] [address] [id number] [place] [address] Oct, [facility] [place] [facility] [address] [id number] [place] [address] Sep, [facility] [place] [facility] [address] [id number] [place] [address] 25 Sep, 2011 [facility] [address] [id number] [place] [address] 21 Sep, 2011 [facility] [place] [facility] [address] [id number] [place] [address]28 20 Sep, 2011 [facility] [address] [id number] [place] [address] 164[address] 19 Sep, 2011 [facility] [address] [id number] [place] [address]85 15 Sep, 2011 [facility] [address] [id number] [place] [address] 14 Sep, 2011 [facility] [address] [id number] [place] [address] Sep, [facility] [address] [id number] [place] [address] 05 Sep, 2011 [facility] [address] [id number] [place] [address]20 04 Sep, 2011 [facility] [address] [id number] [place] [address] August, [facility] [address] [id number] [place] [address] August, [facility] [place] [facility] [address] [id number] [place] [address] August, [facility] [address] [id number] [place] [address] 2046 August, [facility] [place] [facility] [address] [id number] [place] [address] August, [facility] [place] [facility] [address] [id number] [place] [address] 4228 Jul, [facility] [place] [facility] [address] [id number] [place] [address] Jul, [facility] [address] [id number] [place] [address] Jul, [facility] [place] [facility] [address] [id number] [place] [address] 1746 Jul, [facility] [place] [facility] [address] [id number] [place] [address]446 Jul, [facility] [place] [facility] [address] [id number] [place] [address] Jul, [facility] [place] [facility] [address] [id number] [place] [address] 8530 Jul, [facility] [place] [facility] [address] [id number] [place] [address] 8515 Jun, [facility] [place] [facility] [address] [id number] [place] [address] Jun, [facility] [place] [facility] [address] [id number] [place] [address]90 Jun, [facility] [place] [facility] [address] [id number] [place] [address] Jun, [facility] [place] [facility] [address] [id number] [place] [address] 75[address] Jun, [facility] [place] [facility] [address] [id number] [place] [address] May, [facility] [place] [facility] [address] [id number] [place] [address]242 May, [facility] [place] [facility] [address] [id number] [place] [address] 6535 May, [facility] [place] [facility] [address] [id number] [place] [address]198 May, [facility] [place] [facility] [address] [id number] [place] [address] 4867 May, [facility] [place] [facility] [address] [id number] [place] [address]- 0746 May, [facility] [place] [facility] [address] [id number] [place] [address] 1546 Apr, [facility] [place] [facility] [address] [id number] [place] [address] 59[address] Mar, [facility] [place] [facility] [address] [id number] [place] [address] Feb, [facility] [place] [facility] [address] [id number] [place] [address]- 0495 Feb, [facility] [place] [facility] [address] [id number] [place] [address]878 Feb, [facility] [place] [facility] [address] [id number] [place] [address] 4213 Feb, [facility] [place] [facility] [address] [id number] [place] [address]141 Jan, [facility] [place] [facility] [address] [id number] [place] [address]- 6961 Jan, [facility] [place] [facility] [address] [id number] [place] [address]- 7005 Jan, [facility] [place] [facility] [address] [id number] [place] [address]- 7188 Jan, [facility] [place] [facility] [address] [id number] [place] [address] 8536 Jan, [facility] [place] [facility] [address] [id number] [place] [address] Dec, [facility] [place] [facility] [address] [id number] [place] [address] 1372 Oct, [facility] [place] [facility] [address] [id number] [place] [address] 4667 August, [facility] [place] [facility] [address] [id number] [place] [address] 2481 Mar, [facility] [place] [facility] [address] [id number] [place] [address]- 4787 27 Mar, 2010 [facility] [place] [facility] [address] [id number] [place] [address] 16 Mar, 2010 [facility] [place] [facility] [address] [id number] [place] [address]- 7184 15 Mar, 2010 [facility] [place] [facility] [address] [id number] [place] [address]- 4988 15 Mar, 2010 [facility] [address] [id number] [place] [address] 08 Mar, 2010 [facility] [place] [facility] [address] [id number] [place] [address]- 6190 Mar, [facility] [address] [id number] [place] [address]- 1270 Feb, [facility] [address] [id number] [place] [address]- 7826 Feb, [facility] [address] [id number] [place] [address]- 1460 Feb, [facility] [place] [facility] [address] [id number] [place] [address]- 0648 Jan, [facility] [place] [facility] [address] [id number] [place] [address]- 7836 Jan, [facility] [place] [facility] [address] [id number], [place] [address] 8[address] Jan, [facility] [place] [facility] [address] [id number] [place] [address]- 1646 Nov, [facility] [place] [facility] [address] [id number] [place] [address]- 8542 14 Sep, 2009 [facility] [place] [facility] [address] [id number] [place] [address]- 9668 August, [facility] [place] [facility] [address] [id number], [place] [address]- 4496 30 Mar, 2009 [facility] [address] [facility] [id number], [place] [address]- 2354 Mar, [facility] [address] [facility] [id number], [place] [address]- 4746 Feb, [facility] [address] [facility] [id number], [place] [address]- 9548 Feb, [facility] [address] [facility] [id number], [place] [address]- 8713 Feb, [facility] [address] [facility] [id number], [place] [address]- 8362 Feb, [facility] [address] [facility] [id number][place] [address] Feb, [facility] [address] [facility] [id number], [place] [address]- 8501 Jan, [facility] [address] [facility] [id number], [place] [address]- 6446 Jan, [facility] [address] [facility] [id number], [place] [address]- [address]996 Jan, [facility] [address] [facility] [id number], [place] [address]- 8269 Jan, [facility] [address] [facility] [id number], [place] [address]- 3500 Nov, [facility] [address] [facility] [id number], [place] [address]- 7867 Sep, [facility] [address] [facility] [id number], [place] [address]- 9861 August, [facility] [address] [facility] [id number], [place] [address]- 4[address] 14 Jul, 2008 [facility] [address] [facility] [id number], [place] [address]- 7129 May, IMMUNIZATIONS No Known Immunizations SOCIAL HISTORY Never Assessed REASON FOR VISIT medication PLAN OF CARE VITAL SIGNS MEDICATIONS Unknown [...] Surgical History L total knee replacement 07/16/17 Surgical History Excision cancerous lesion left elbow ([place]) 09/11/17 Hospitalization History surgeries Hospitalization History Atrial Flutter/Chest [...]
--- OUTSIDE RECORDS SUMMARY | 2017-10-09 17:07 | XMS REPORT ---
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 Role Phone KENIA FORBES Unavailable PROBLEMS Type Condition ICD9-CM Code OUG54-YA Code Onset Dates Condition Status SNOMED Code Problem History of common bile duct surgery Z98.89 Active 359806120 Problem Barretts esophagus K22.70 Active 593374695 Problem 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 Active 51114416 Problem Colon polyp K63.5 Active 14745386 Problem Bilateral low back pain without sciatica M54.5 Active 532351406 Problem Screening breast examination Z12.39 Active 057569354 Problem Postmenopausal Z78.0 Active 12373103 Problem Osteopenia M85.80 Active 820212535 Problem Cigarette nicotine dependence without complication F17.210 Active 60350054 Problem Type 2 diabetes mellitus with diabetic peripheral angiopathy without gangrene E11.51 Active 949430866 Problem Vascular dementia without behavioral disturbance F01.50 Active [id number] Problem Unspecified atherosclerosis of [place] arteries of extremities, unspecified extremity I70.209 Active 820260714483246 Problem Arthritis M19.90 Active 8488546 Problem Chronic atrial fibrillation I48.2 Active 626635931 Problem Chronic obstructive pulmonary disease with acute lower respiratory infection J44.0 Active 280136665 Problem Other chronic pancreatitis K86.1 Active 825766130 Problem Stress incontinence of urine N39.3 Active 80921867 Problem Controlled type 2 diabetes mellitus without complication, without long -term current use of insulin E11.9 Active 386439817 Problem Unspecified psychosis F29 Active 11991596 Problem Xeroderma Q80.9 Active 09841818 Problem COPD (chronic obstructive pulmonary disease) J44.9 Active 33633170 Problem Dementia without behavioral disturbance, unspecified dementia type F03.90 Active 72282861 Problem Gastroparesis K31.84 Active 966640386 Problem Type 2 diabetes mellitus with diabetic neuropathy, without long-term current use of insulin E11.40 Active 88295924 Problem Osteoporosis M81.0 Active 42506799 Problem Atherosclerosis of [place] artery of both lower extremities with intermittent claudication I70.213 Active 247921984468253 Problem Hyperlipidemia E78.5 Active 91793390 Problem Diabetic polyneuropathy associated with type 2 diabetes mellitus E11.42 Active 25216766 Problem Essential tremor G25.0 Active 36075415 Problem Atherosclerotic heart disease of [place]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 I25.118 Active 2506675895662 Problem Generalized anxiety disorder F41.1 Active 429928650 Problem Gastroesophageal reflux disease, esophagitis presence not specified K21.9 Active 153624395 Problem Coronary artery disease involving [place] coronary artery of [place] 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 I25.118 Active 1406274320608 Problem Postconcussion syndrome F07.81 Active 16916703 Problem Chronic pain syndrome G89.4 Active 227537923 Problem Migraine without aura and without status migrainosus, not intractable G43.009 Active 086383045 Problem Paroxysmal atrial fibrillation I48.0 Active 149008470 Problem Migraine without aura and with status migrainosus, not intractable G43.001 Active 583762184 Problem Cervicalgia M54.2 Active 4447897804077 Problem Acute exacerbation of chronic obstructive pulmonary disease (COPD) J44.1 Active 647823462 Problem Major depressive disorder, recurrent episode, moderate F33.1 Active 732162647 Problem Crohn''s disease without complication, unspecified gastrointestinal tract location K50.90 Active 14128933 Problem Chronic fatigue R53.82 Active 88330579 Problem Bipolar affective disorder, currently depressed, moderate F31.32 Active 545974355 ALLERGIES No Information ENCOUNTERS Encounter Location Date Diagnosis [facility] [address] [facility] [id number] [address] Nov, [facility] [address] [place] [address] Oct, [facility] [address] [address] Sep, [facility] [address] [place] [id number] [address] Sep, [place] [address] [address] Sep, [facility] [address] [place] [address] Sep, [facility] [id number] [place] [address] August, [facility] [address] [address] August, [facility] [address] [address] August, Type 2 diabetes mellitus with diabetic neuropathy, without long-term current use of insulin E11.40 and Sprain of right ankle, unspecified ligament, initial encounter S93.401A [facility] [address] [address] August, [facility] [id number] [address] 6[address] August, [facility] [address] [address] 59[address] August, [facility] [address] [address] August, Gastroesophageal reflux disease, esophagitis presence not specified K21.9 [facility] [id number] [address] 6821 August, [facility] [address] [address] 9082 August, [facility] [id number] [address] 2881 August, [facility] [id number] [place] [address] August, Type 2 diabetes mellitus with diabetic neuropathy, without long-term current use of insulin E11.40 and Elevated liver enzymes R74.8 [facility] [id number] [place] [address] 79585- 2701 Jul, [facility] [id number] [place] [address] 30163- 2865 Jul, Cough R05 [facility] [id number] [place] [address] 57127- 4332 Jul, [facility] [id number] [place] [address] 16093- 4468 Jul, [facility] [id number] [place] [address] 17740- 4172 Jul, Bipolar affective disorder, currently depressed, moderate F31.32 ; Vascular dementia without behavioral disturbance F01.50 and Generalized anxiety disorder F41.1 [facility] [id number] [place] [address] 78881- 0301 Jul, [facility] [id number] [place] [address] 01631- 0700 Jul, Type 2 diabetes mellitus with diabetic neuropathy, without long-term current use of insulin E11.40 and Elevated liver enzymes R74.8 [facility] [id number] [place] [address] 12509- 9848 Jul, [facility] [id number] [place] [address] 83989- 0509 Jul, [facility] [id number] [place] [address] 35734- 8820 17 Jul, 2017 [facility] [id number] [place] [address] 61060- 0506 Jul, Post-menopausal Z78.0 [facility] [id number] [place] [address] 30452- 4925 Jul, Stress incontinence of urine N39.3 [facility] [id number] [place] [address] 68197- 0084 Jul, [facility] [id number] [place] [address] 32846- 1903 Jul, [facility] [address] [place] [address] 96117- 4537 Jul, Stress incontinence of urine N39.3 and Cough R05 [facility] [id number] [place] [address] 15079- 7834 Jul, [facility] [id number] [place] [address] 93082- 7065 Jul, [facility] [id number] [place] [address] 46643- 2220 Jul, [facility] [id number] [place] [address] 10323- 3476 Jul, Gastroesophageal reflux disease, esophagitis presence not specified K21.9 [facility] [address] [place] [address] 28709- 8909 Jun, Diabetic polyneuropathy associated with type 2 diabetes mellitus E11.42 [facility] [id number] [place] [address] 87381- 2487 Jun, Diabetic polyneuropathy associated with type 2 diabetes mellitus E11.42 ; Coronary artery disease involving [place] coronary artery of [place] 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 I25.118 and Paroxysmal atrial fibrillation I48.0 [facility] [address] [address] 5159 Jun, [facility] [address] [place] [address] 94767- 6211 Jun, [facility] [address] [place] [address] 03396- 3203 Jun, Gastroenteritis K52.9 [facility] [id number] [place] [address] 22209- 7245 Jun, Gastroenteritis K52.9 [facility] [id number] [place] [address]- 3283 Jun, [facility] [address] [place] [address] 9631 Jun, [facility] [id number] [place] [address] 53126- 1364 20 Jun, 2017 Sprain of right ankle, unspecified ligament, initial encounter S93.401A ; Type 2 diabetes mellitus with diabetic neuropathy, without long-term current use of insulin E11.40 ; Atherosclerosis of [place] artery of both lower extremities with intermittent claudication I70.213 ; Atherosclerotic heart disease of [place]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 I25.118 ; Chronic atrial fibrillation I48.2 and Crohn''s disease without complication, unspecified gastrointestinal tract location K50.90 [facility] [id number] [place] [address] 75609 -0181 17 Jun, 2017 Cough R05 and Chronic obstructive pulmonary disease with acute lower respiratory infection J44.0 [place] [id number] [place] [address] 01794- 2973 16 Jun, 2017 [place] [address] [address] [id number] [place] [address] 32173- 5681 15 Jun, 2017 Coughing R05 ; Unspecified atherosclerosis of [place] arteries of extremities, unspecified extremity I70.209 ; Type 2 diabetes mellitus with diabetic peripheral angiopathy without gangrene E11.51 ; Crohn''s disease without complication, unspecified gastrointestinal tract location K50.90 ; Other chronic pancreatitis K86.1 and Chronic atrial fibrillation I48.2 [facility] [id number] [place] [address] 52605 -9113 Jun, [place] [id number] [place] [address] 57121- 5483 Jun, Bipolar affective disorder, currently depressed, moderate F31.32 ; Vascular dementia without behavioral disturbance F01.50 and Generalized anxiety disorder F41.1 [place] [id number] [place] [address] 93125- 7034 May, Generalized anxiety disorder F41.1 [place] [id number] [place] [address] 44618- 3070 May, [facility] [id number] [place] [address] 95048- 4001 May, [place] [address] [address] [id number] [place] [address] 04973- 3719 May, Coughing R05 [place] [id number] [place] [address] 55666- 8876 May, [place] [address] 64227- 3658 May, Bipolar affective disorder, currently depressed, moderate F31.32 ; Vascular dementia without behavioral disturbance F01.50 and Generalized anxiety disorder F41.1 [place] [address] 76134- 9236 Apr, Generalized anxiety disorder F41.1 [place] [address] 56181- 5317 Apr, [place] [address] [address] [id number] [place] [address] 91063- 4500 Apr, Vascular dementia without behavioral disturbance F01.50 ; Generalized anxiety disorder F41.1 and Bipolar affective disorder, currently depressed, moderate F31.32 [place] [id number] [place] [address] 22588- 1676 Apr, Generalized anxiety disorder F41.1 [facility] [id number] [place] [address] 94238 -5447 Apr, Cough R05 and Acute exacerbation of chronic obstructive pulmonary disease (COPD) J44.1 [place] [id number] [place] [address] 32871- 6828 Apr, [facility] [id number] [place] [address] 00298 -6824 Mar, Cough R05 and Cigarette nicotine dependence without complication F17.210 [place] [id number] [place] [address] 67493- 6096 Mar, [place] [id number] [place] [address] 91102- 9467 Feb, Generalized anxiety disorder F41.1 ; Major depressive disorder, recurrent episode, moderate F33.1 ; Vascular dementia without behavioral disturbance F01.50 and Unspecified psychosis F29 [place] [id number] [place] [address] 94370- 0368 Feb, [place] [address] [id number] [place] [address] 50228- 2098 Feb, [place] [id number] [place] [address] 48665- 5565 Feb, Generalized anxiety disorder F41.1 [place] [id number] [place] [address] 54104- 5543 Feb, Generalized anxiety disorder F41.1 [place] [id number] [place] [address] 23646- 4453 Feb, Dizziness R42 ; Chronic fatigue R53.82 ; Postconcussion syndrome F07.81 ; Fall, initial encounter W19.XXXA and Disorientation R41.0 [place] [id number] [place] [address] 07020- 5355 Feb, Postconcussion syndrome F07.81 ; Injury of head, initial encounter S09.90XA ; Fall, initial encounter W19.XXXA ; Disorientation R41.0 and Acute cystitis with hematuria N30.01 [place] [address] [place] [address] 64350- 6623 Jan, Gastroesophageal reflux disease, esophagitis presence not specified K21.9 ; Post-menopausal Z78.0 and Migraine without aura and without status migrainosus, not intractable G43.009 [place] [address] [place] [address] 12600- 0610 Jan, [place] [id number] [place] [address] 57030- 7288 Jan, Generalized anxiety disorder F41.1 ; Major depressive disorder, recurrent episode, moderate F33.1 ; Vascular dementia without behavioral disturbance F01.50 and Unspecified psychosis F29 [facility] [id number] [place] [address] 70094- 4120 Jan, Pneumonia of left lower lobe due to infectious organism J18.1 [facility] [id number] [place] [address] 83828- 3033 Jan, Migraine without aura and with status migrainosus, not intractable G43.001 [facility] [id number] [place] [address] 55476 -2322 Jan, Migraine without aura and without status migrainosus, not intractable G43.009 [facility] [address] [id number] [place] [address] 90096- 9591 Dec, Hematoma T14.8 [place] [address] 42574- 0025 Dec, [facility] [id number] [place] [address] 40037 -3766 Nov, Fatigue, unspecified type R53.83 [place] [address] [id number] [place] [address] 04577- 0493 Nov, Scabies B86 and Coronary artery disease involving [place] coronary artery of [place] 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 I25.118 [place] [id number] [place] [address] 76302- 4189 Nov, [place] [address] [address] [id number] [place] [address] 21311- 2690 Nov, [place] [address] 73950- 1375 Oct, [place] [address] [address] [id number] [place] [address] 81338- 3853 Oct, Generalized anxiety disorder F41.1 and Major depressive disorder, recurrent episode, moderate F33.1 [facility] [address] [address]- 3206 19 Oct, 2016 Cramp of both lower extremities R25.2 [facility] [id number] [place] [address] 64872- 7206 18 Oct, 2016 Leg cramps R25.2 [facility] [id number] [place] [address] 15007- 4676 Oct, Chronic pain syndrome G89.4 [facility] [id number] [place] [address] 72023- 4385 17 Oct, 2016 [facility] [id number] [place] [address] 85139- 0019 Oct, [facility] [id number] [place] [address] 50833- 2125 Oct, Routine gynecological examination Z01.419 and Screening for breast cancer Z12.31 [facility] [id number] [place] [address] 05626- 6142 28 Sep, 2016 Diarrhea R19.7 [facility] [id number] [place] [address] 95406- 2985 Sep, Back pain M54.9 [facility] [address] [place] [address] 77893- 1305 Sep, [facility] [id number] [place] [address] 52853- 6165 Sep, [facility] [address] [place] [address] 34136 -5477 August, Xeroderma Q80.9 [facility] [id number] [place] [address] 37919- 5888 August, Dementia without behavioral disturbance, unspecified dementia type F03.90 [facility] [address] [address]- 3251 August, Chronic pain syndrome G89.4 [facility] [id number] [place] [address] 92350- 4056 August, [place] [address] 07681- 8775 August, Hyperlipidemia E78.5 ; Other fatigue R53.83 and Other specified hypotension I95.89 [facility] [address] 65997 -6072 August, Dysuria R30.0 ; Other fatigue R53.83 and Other specified hypotension I95.89 [place] [address] 85006- 0460 August, [place] [address] 96991- 8194 Jul, Pain in left knee M25.562 and Gastroenteritis K52.9 [place] [address] 64878- 9547 Jul, [place] [address] 93623- 8864 Jul, Diarrhea R19.7 [facility] [place] [address] 96399 -0822 Jul, Spider bite, accidental or unintentional, initial encounter T63.301A [place] [address] 78710- 2450 Jul, Primary osteoarthritis of right knee M17.11 and Arthritis M19.90 [place] [address] 45268- 1906 10 Jul, 2016 Generalized anxiety disorder F41.1 and Major depressive disorder, recurrent episode, moderate F33.1 [place] [address] 31363- 0971 07 Jul, 2016 Type 2 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 and Temporal headache R51 [place] [address] 89106- 8146 Jul, Back pain M54.9 [facility] [id number] [place] [address] 42647- 6644 Jul, [place] [address] 58823- 3137 Jul, [place] [address] 83663- 3467 Jun, Nausea R11.0 [facility] [address] 03879 -1399 Jun, Acute suppurative otitis media of both ears without spontaneous rupture of tympanic membranes, recurrence not specified H66.003 and COPD exacerbation J44.1 [place] [address] 02098- 9918 Jun, Generalized anxiety disorder F41.1 [place] [address] 45745- 3230 16 Jun, 2016 [facility] [address] 30853 -4756 Jun, [facility] [address] 86628 -8397 Jun, Shortness of breath R06.02 and COPD exacerbation J44.1 [place] [address] 46183- 7508 Jun, Eczema, unspecified type L30.9 [place] [address] 68334- 7922 Jun, [place] [address] 75455- 3134 May, [place] [address] 88411- 0388 May, Muscle cramping R25.2 [place] [address] 10267- 4125 May, [facility] [id number] [place] [address] 43891- 8586 Apr, Diarrhea R19.7 [facility] [address] 74734- 0060 Apr, [place] [address] 94327- 6079 Apr, Chronic pain syndrome G89.4 [place] [address] 05193- 1188 16 Apr, 2016 Cramp of both lower extremities R25.2 and Vascular dementia without behavioral disturbance F01.50 [place] [address] 07216- 4528 Apr, Type 2 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 and Cigarette nicotine dependence without complication F17.210 [place] [address] 91831- 2961 Mar, Generalized anxiety disorder F41.1 [place] [address] 49570- 0367 Feb, Generalized anxiety disorder F41.1 and Major depressive disorder, recurrent episode, moderate F33.1 [place] [address] [id number] [place] [address] 45766- 4284 Feb, [facility] [id number] [place] [address] 77616 -8160 Feb, Dysuria R30.0 and Acute cystitis with hematuria N30.01 [place] [address] [id number] [place] [address] 17601- 9995 Jan, [facility] [address] 10162- 9533 Jan, [place] [id number] [place] [address] 20405- 7352 Jan, [place] [address] [address] [id number] [place] [address] 83135- 2536 11 Jan, 2016 [facility] [address] 89564 -6696 10 Jan, 2016 Wasp sting, accidental or unintentional, initial encounter T63.461A [facility] [address] 00323- 7490 06 Jan, 2016 Encounter for immunization Z23 [facility] [address] 52199- 0204 05 Jan, 2016 [facility] [address] 01821- 6804 Jan, [facility] [address] 61560- 4252 28 Dec, 2015 Generalized anxiety disorder F41.1 and Major depressive disorder, recurrent episode, moderate F33.1 [facility] [address] 17591- 2477 21 Dec, 2015 Routine gynecological examination Z01.419 ; Postmenopausal Z78.0 ; Screening breast examination Z12.39 ; Osteopenia M85.80 and Breast cancer screening Z12.39 [facility] [address] [id number] [place] [address] 25781- 2147 20 Dec, 2015 [facility] [id number] [place] [address] 97309- 4257 19 Dec, 2015 [facility] [id number] [place] [address] 17581- 0855 16 Dec, 2015 [facility] [id number] [place] [address] 39353- 1652 16 Dec, 2015 [facility] [address] 23752- 5506 14 Dec, 2015 [facility] [id number] [place] [address] 00424- 1903 06 Dec, 2015 [facility] [facility] [address] [place] [address] Nov, [facility] [address] [address] Nov, Cough R05 ; Other viral agents as the cause of diseases classified elsewhere B97.89 and Acute upper respiratory infection, unspecified J06.9 [facility] [address] [address] Nov, [facility] [id number] [address] 4[address] Nov, [facility] [id number] [address] 8019 Nov, [facility] [id number] [address] 6251 Nov, [facility] [id number] [address] 1078 Nov, [facility] [id number] [address] 5543 Oct, [facility] [id number] [address] 0071 Oct, [facility] [id number] [address] 8130 Oct, [facility] [id number] [address] 1757 Oct, Chronic pain syndrome G89.4 [facility] [id number] [address] 0113 Sep, Generalized anxiety disorder F41.1 and Major depressive disorder, recurrent episode, moderate F33.1 [facility] [id number] [address] 0390 Sep, [facility] [id number] [address] 9214 Sep, [facility] [id number] [place] [address] 22720- 9464 14 Sep, 2015 Generalized anxiety disorder F41.1 [facility] [id number] [place] [address] 87529- 9405 13 Sep, 2015 Cramp of both lower extremities R25.2 and Cervicalgia M54.2 [facility] [id number] [place] [address] 06785- 4877 06 Sep, 2015 Generalized anxiety disorder F41.1 [facility] [id number] [place] [address] 93805- 2806 01 Sep, 2015 [facility] [id number] [place] [address] 79124 -1793 August, Rash R21 ; Itching L29.9 and Allergic response, subsequent encounter T78.40XD [facility] [id number] [place] [address] 30689- 5015 August, Primary insomnia F51.01 [facility] [id number] [place] [address] 39873 -6879 August, Rash R21 ; Itching L29.9 and Allergic response, initial encounter T78.40XA [facility] [id number] [place] [address] 40423- 7924 August, [facility] [id number] [place] [address] 91261- 2501 August, Cramp of both lower extremities R25.2 [facility] [id number] [place] [address] 06653- 2330 August, Back pain M54.9 [facility] [id number] [place] [address] 74761- 5267 August, [facility] [id number] [place] [address] 90021- 7025 August, [facility] [id number] [place] [address] 37436 -5889 August, Cramp of both lower extremities R25.2 [facility] [id number] [place] [address] 85017- 4443 August, [facility] [id number] [place] [address] 78601- 6279 August, Syncope R55 ; Paroxysmal atrial fibrillation I48.0 ; Dementia without behavioral disturbance, unspecified dementia type F03.90 and Chronic pain syndrome G89.4 [facility] [id number] [place] [address] 65522- 5404 August, Type 2 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 and Syncope R55 [facility] [id number] [place] [address] 66233- 1518 Jul, [facility] [id number] [place] [address] 08044- 2356 Jul, [facility] [id number] [place] [address] 84448- 1018 Jul, [facility] [id number] [place] [address] 17069- 1746 Jul, [facility] [id number] [place] [address] 57953- 7161 Jul, [facility] [id number] [address]- 0596 Jul, UTI (urinary tract infection) N39.0 [facility] [id number] [place] [address] 20794- 6006 Jul, [facility] [id number] [place] [address] 73137- 7374 Jul, Major depressive disorder, recurrent episode, moderate F33.1 and Generalized anxiety disorder F41.1 [facility] [id number] [address]- 5000 Jul, Generalized anxiety disorder F41.1 [facility] [id number] [address]- 3136 14 Jul, 2015 Diarrhea R19.7 [facility] [address] [place] [address] 94322- 9716 14 Jul, 2015 [facility] [id number] [address]- 5737 Jun, [facility] [id number] [place] [address] 98821- 4098 Jun, Eczema L30.9 [facility] [id number] [place] [address] 35265- 1817 Jun, [facility] [id number] [place] [address] 92410- 7480 Jun, COPD (chronic obstructive pulmonary disease) J44.9 [facility] [id number] [place] [address] 40037- 8405 Jun, [facility] [id number] [address]- 6359 Jun, Major depressive disorder, recurrent episode, moderate F33.1 and Generalized anxiety disorder F41.1 [facility] [id number] [address]- 0673 May, [facility] [id number] [address]- 0546 May, UTI (urinary tract infection) N39.0 [facility] [id number] [address]- 4591 May, [facility] [id number] [address]- 9271 May, [facility] [id number] [address]- 7543 May, [facility] [id number] [address]- 4341 May, [facility] [id number] [place] [address] 28651- 1670 Apr, Major depressive disorder, recurrent episode, moderate F33.1 and Generalized anxiety disorder F41.1 [facility] [id number] [place] [address] 83645- 5473 Apr, COPD (chronic obstructive pulmonary disease) J44.9 [facility] [id number] [place] [address] 62209- 1015 Apr, [facility] [id number] [place] [address] 65968- 4701 Apr, Atrial flutter I48.92 [facility] [id number] [place] [address] 13012- 9909 Apr, [facility] [id number] [place] [address] 82669- 8128 Apr, [facility] [id number] [place] [address] 35579- 5947 Mar, [facility] [id number] [place] [address] 20027- 3221 Mar, [facility] [id number] [place] [address] 90344- 5719 Mar, [facility] [id number] [place] [address] 02639- 8273 Mar, Hyperlipidemia E78.5 ; Type 2 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 ; Major depressive disorder, recurrent episode, moderate F33.1 and Chronic pain syndrome G89.4 [facility] [id number] [address]- 8677 Mar, [facility] [id number] [place] [address] 27473- 4373 14 Mar, 2015 [facility] [id number] [place] [address] 52306- 2984 Mar, [facility] [id number] [address]- 9609 Mar, [facility] [address] [facility] [id number] [address]- 2180 Feb, COPD (chronic obstructive pulmonary disease) J44.9 and Back pain M54.9 [facility] [id number] [address]- 0065 Feb, [facility] [address] [facility] [id number] [place] [address] 18733- 1168 Feb, [facility] [id number] [place] [address] 13045- 4316 Feb, [facility] [id number] [place] [address] 48328- 7648 Feb, [facility] [id number] [place] [address] 17488- 6713 Feb, [facility] [id number] [place] [address] 07465- 3114 Feb, [facility] [id number] [place] [address] 61912- 3169 Feb, [facility] [id number] [place] [address] 51372- 1572 Feb, [facility] [id number] [address]- 7288 Feb, Diabetes E11.9 ; Back pain M54.9 and COPD (chronic obstructive pulmonary disease) J44.9 [facility] [id number] [address]- 2911 Jan, [facility] [id number] [place] [address] 84132- 0570 Jan, Major depression, recurrent F33.9 and Generalized anxiety disorder F41.1 [facility] [id number] [address]- 5580 Jan, Chronic pain G89.29 [facility] [id number] [address]- 1957 Jan, [facility] [id number] [place] [address] 76169- 2883 Jan, [facility] [id number] [place] [address] 77888- 8353 Jan, [facility] [id number] [place] [address] 93255- 7755 Jan, [facility] [id number] [place] [address] 54359- 9787 Jan, Nicotine dependence F17.200 [facility] [id number] [place] [address] 25164- 2362 Jan, Nicotine dependence F17.200 and Back pain M54.9 [facility] [id number] [place] [address] 63399- 6373 Jan, [facility] [id number] [place] [address] 90475- 5867 28 Dec, 2014 [facility] [id number] [place] [address] 46352- 0887 25 Sep, 2014 Anxiety, generalized 300.02 and Major depression, recurrent 296.30 [facility] [id number] [place] [address] 88271- 9744 24 Dec, 2014 [facility] [id number] [place] [address] 19199- 3727 21 Sep, 2014 [facility] [id number] [place] [address] 09971- 2926 17 Dec, 2014 [facility] [id number] [place] [address] 56941- 9398 15 Dec, 2014 [facility] [id number] [place] [address] 77539- 1788 14 Sep, 2014 [facility] [id number] [place] [address] 07730- 5766 Dec, [facility] [id number] [address]- 8111 Dec, [facility] [id number] [place] [address] 21128- 2279 Dec, Skin tear 879.8 [facility] [id number] [place] [address] 10368- 7871 08 Dec, 2014 Routine gynecological examination V72.31 ; Breast cancer screening V76.10 and Family history of breast cancer in first degree relative V16.3 [facility] [id number] [place] [address] 47118- 9892 Dec, [facility] [id number] [place] [address] 08651- 8158 Dec, [facility] [id number] [place] [address] 76759- 9266 Nov, [facility] [id number] [place] [address] 47056- 9897 Nov, [facility] [id number] [place] [address] 47282- 7414 Nov, Poor balance 781.99 and Vascular dementia, uncomplicated 290.40 [facility] [id number] [place] [address] 38535- 1601 Nov, [facility] [id number] [place] [address] 65893- 3551 Nov, Major depression, recurrent 296.30 and Anxiety, generalized 300.02 [facility] [id number] [place] [address] 22923- 0326 Nov, [facility] [id number] [place] [address] 19389- 3278 Nov, [facility] [id number] [place] [address] 36418- 2435 Nov, [facility] [id number] [address]- 5269 Nov, [facility] [id number] [address]- 4603 Nov, Vascular dementia, uncomplicated 290.40 and Lumbago 724.2 [facility] [id number] [address]- 3777 Nov, [facility] [id number] [place] [address] 95544- 0119 Nov, [facility] [id number] [address]- 9254 Nov, [facility] [id number] [place] [address] 02370- 4033 Oct, [facility] [id number] [address]- 7237 Oct, [facility] [id number] [address]- 5724 Oct, [facility] [id number] [address]- 9081 Oct, COPD (chronic obstructive pulmonary disease) 496 and Hyperlipidemia 272.4 [facility] [id number] [address]- 0342 Oct, Major depression, recurrent 296.30 and Anxiety, generalized 300.02 [facility] [id number] [address]- 0826 Oct, [facility] [id number] [address]- 1985 Oct, [facility] [id number] [address]- 1723 Oct, [facility] [id number] [address]- 1817 Sep, Lumbago 724.2 and Anxiety state, unspecified 300.00 [facility] [address] [facility] [id number] [place] [address]- 0703 Sep, [facility] [address] [address]- 6694 Sep, [facility] [id number] [address]- 6733 August, [facility] [address] 1984 August, Major depression, recurrent 296.30 ; Anxiety, generalized 300.02 and No condition on Phoenix II V71.09 [facility] [id number] [address]- 8529 August, [facility] [address] [address]- 0148 August, [facility] [address] [address]- 4649 Jul, [facility] [id number] [address]- 0625 Jul, [facility] [address] [address]- 1239 Jul, [facility] [id number] [address]- 2213 Jun, [facility] [address] [address]- 7989 Jun, [facility] [id number] [address]- 2031 Jun, [facility] [id number]- 0862 Jun, [facility] [id number] [place]- 5637 Jun, [facility] [id number] 1137 Jun, [facility] [place] [facility] [address] [id number] [place] [address]- 0137 23 Jun, 2014 [facility] [place] [facility] [address] [id number] [place] [address]- 2805 17 Jun, 2014 [facility] [place] [facility] [address] [id number] [place] [address]- 7249 13 Jun, 2014 [facility] [place] [facility] [address] [id number] [place] [address]- 3485 13 Jun, 2014 [facility] [place] [facility] [address] [id number] [place] [address]- 5914 10 Jun, 2014 [facility] [place] [facility] [address] [id number] [place] [address]- 8674 10 Jun, 2014 [facility] [place] [facility] [address] [id number] [place] [address]- 1116 Jun, [facility] [place] [facility] [address] [id number] [place] [address]- 3689 Jun, [facility] [place] [facility] [address] [id number] [place] [address]- 9893 Jun, [facility] [place] [facility] [address] [id number] [place] [address]- 3049 Jun, [facility] [place] [facility] [address] [id number] [place] [address]- 1758 May, [facility] [place] [facility] [address] [id number] [place] [address]- 0882 May, 2014 [facility] [place] [facility] [address] [id number] [place] [address]- 2614 May, [facility] [place] [facility] [address] [id number] [place] [address]- 6936 May, 2014 [facility] [place] [facility] [address] [id number] [place] [address]- 4404 May, 2014 [facility] [place] [facility] [address] [id number] [place] [address]- 5110 May, 2014 [facility] [place] [facility] [address] [id number] [place] [address]- 6296 May, 2014 [facility] [place] [facility] [address] [id number] [place] [address] 2546 May, 2014 [facility] [place] [facility] [address] [id number] [place] [address] 2546 May, 2014 [facility] [place] [facility] [address] [id number] [place] [address] 2546 May, 2014 [facility] [place] [facility] [address] [id number] [place] [address]- 9666 May, 2014 [facility] [place] [facility] [address] [facility] [id number] [place] [address] 2542 May, 2014 [facility] [place] [facility] [address] [facility] [id number] [place] [address] 2549 May, 2014 [facility] [place] [facility] [address] [id number] [place] [address]- 8902 May, [facility] [place] [facility] [address] [facility] [id number] [place] [address]- 6703 Apr, [facility] [place] [facility] [address] [facility] [id number] [place] [address]- 3766 Apr, [facility] [place] [facility] [address] [facility] [id number] [place] [address]- 9985 Apr, [facility] [place] [facility] [address] [id number] [place] [address] 2545 Apr, [facility] [place] [facility] [address] [id number] [place] [address]- 1996 Apr, [facility] [place] [facility] [address] [facility] [id number] [place] [address] 2546 Apr, [facility] [place] [facility] [address] [facility] [id number] [place] [address]- 9358 Apr, [facility] [place] [facility] [address] [id number] [place] [address]- 6814 Apr, [facility] [place] [facility] [address] [id number] [place] [address]- 3192 Apr, [facility] [place] [facility] [address] [id number] [place] [address]- 7223 Apr, [facility] [place] [facility] [address] [id number] [place] [address]- 5907 Apr, [facility] [place] [facility] [address] [id number] [place] [address] Apr, [facility] [place] [facility] [address] [id number] [place] [address] Mar, [facility] [place] [facility] [address] [id number] [place] [address] 31 Mar, 2014 [facility] [place] [facility] [address] [id number] [place] [address] 30 Mar, 2014 [facility] [place] [facility] [address] [id number] [place] [address]47 30 Mar, 2014 [facility] [place] [facility] [address] [id number] [place] [address] 29 Mar, 2014 [facility] [place] [facility] [address] [id number] [place] [address] 29 Mar, 2014 [facility] [place] [facility] [address] [id number] [place] [address] 19 Mar, 2014 [facility] [place] [facility] [address] [id number] [place] [address] 19 Mar, 2014 [facility] [place] [facility] [address] [id number] [place] [address] 15 Mar, 2014 [facility] [place] [facility] [address] [id number] [place] [address] 15 Mar, 2014 [facility] [place] [facility] [address] [id number] [place] [address]- [address] 15 Mar, 2014 [facility] [place] [facility] [address] [id number] [place] [address] 3816 15 Mar, 2014 [facility] [place] [facility] [address] [id number] [place] [address] Mar, [facility] [place] [facility] [address] [id number] [place] [address] Mar, [facility] [place] [facility] [address] [id number] [place] [address] Mar, [facility] [place] [facility] [address] [id number] [place] [address]79 Mar, [facility] [place] [facility] [address] [id number] [place] [address] 1989 Mar, [facility] [place] [facility] [address] [id number] [place] [address]170 Mar, [facility] [place] [facility] [address] [id number] [place] [address] 8542 Mar, [facility] [place] [facility] [address] [id number] [place] [address] Mar, [facility] [place] [facility] [address] [id number] [place] [address] 1280 Feb, [facility] [place] [facility] [address] [id number] [place] [address] 9668 Feb, [facility] [place] [facility] [address] [id number] [place] [address]- [address]478 Feb, [facility] [place] [facility] [address] [id number] [place] [address] Feb, [facility] [place] [facility] [address] [id number] [place] [address]95 Feb, [facility] [place] [facility] [address] [id number] [place] [address]- 9869 Feb, [facility] [place] [facility] [address] [id number] [place] [address]- [address]95 Feb, [facility] [place] [facility] [address] [id number] [place] [address] Feb, [facility] [place] [facility] [address] [id number] [place] [address] Feb, [facility] [place] [facility] [address] [id number] [place] [address] 118[address] Feb, [facility] [place] [facility] [address] [id number] [place] [address] Feb, [facility] [place] [facility] [address] [id number] [place] [address] Feb, [facility] [place] [facility] [address] [id number] [place] [address]60 Feb, [facility] [place] [facility] [address] [id number] [place] [address]269 Feb, [facility] [place] [facility] [address] [id number] [place] [address]- 488[address] Feb, [facility] [place] [facility] [address] [id number] [place] [address] Feb, [facility] [place] [facility] [address] [id number] [place] [address]70 Feb, [facility] [place] [facility] [address] [id number] [place] [address] Jan, [facility] [place] [facility] [address] [id number] [place] [address]- [address] Jan, [facility] [place] [facility] [address] [id number] [place] [address]- [address] Jan, [facility] [place] [facility] [address] [id number] [place] [address] Jan, [facility] [place] [facility] [address] [id number] [place] [address]- [address] Jan, [facility] [place] [facility] [address] [id number] [place] [address] Jan, [facility] [place] [facility] [address] [id number] [place] [address] Jan, [facility] [place] [facility] [address] [id number] [place] [address] 37[address] Jan, [facility] [place] [facility] [address] [id number] [place] [address] 2840 Jan, [facility] [place] [facility] [address] [id number] [place] [address] 6[address] Jan, [facility] [place] [facility] [address] [id number] [place] [address] 6709 Jan, [facility] [place] [facility] [address] [id number] [place] [address] 0886 Dec, [facility] [place] [facility] [address] [id number] [place] [address] 5177 Dec, [facility] [place] [facility] [address] [id number] [place] [address] 8777 Nov, [facility] [place] [facility] [address] [id number] [place] [address] 1664 Nov, [facility] [place] [facility] [address] [id number] [place] [address] 1051 Nov, [facility] [place] [facility] [address] [id number] [place] [address] Nov, [facility] [place] [facility] [address] [id number] [place] [address]- 1349 Nov, [facility] [place] [facility] [address] [id number] [place] [address]- 8178 Nov, [facility] [place] [facility] [address] [id number] [place] [address] 0696 Nov, [facility] [place] [facility] [address] [id number] [place] [address] 2049 08 Oct, 2013 [facility] [place] [facility] [address] [id number] [place] [address]- 5856 08 Oct, 2013 [facility] [place] [facility] [address] [id number] [place] [address]- 3884 Oct, 2013 [facility] [place] [facility] [address] [id number] [place] [address]- 0823 Oct, [facility] [place] [facility] [address] [id number] [place] [address] 8510 30 Sep, 2013 [facility] [place] [facility] [address] [id number] [place] [address]- 4341 30 Sep, 2013 [facility] [place] [facility] [address] [id number] [place] [address]- 7006 Sep, [facility] [place] [facility] [address] [id number] [place] [address]- 8602 Sep, [facility] [place] [facility] [address] [id number] [place] [address]- 1883 Sep, [facility] [place] [facility] [address] [id number] [place] [address]- 7234 Sep, [facility] [place] [facility] [address] [id number] [place] [address]- 4340 Sep, [facility] [place] [facility] [address] [id number] [place] [address]- 1064 Sep, [facility] [place] [facility] [address] [id number] [place] [address]- 5758 Sep, [facility] [place] [facility] [address] [id number] [place] [address]- 0645 Sep, [facility] [place] [facility] [address] [id number] [place] [address]- 8337 Sep, [facility] [place] [facility] [address] [id number] [place] [address]- 9319 Sep, [facility] [address] [id number] [place] [address]- 1299 Sep, [facility] [place] [facility] [address] [id number] [place] [address]- 5140 Sep, [facility] [place] [facility] [address] [id number] [place] [address]- 3449 August, [facility] [place] [facility] [address] [id number] [place] [address]- 5513 August, [facility] [place] [facility] [address] [id number] [place] [address]- 7584 August, [facility] [place] [facility] [address] [id number] [place] [address]- 9274 August, [facility] [place] [facility] [address] [id number] [place] [address]- 7080 August, [facility] [place] [facility] [address] [id number] [place] [address]- 6519 August, [facility] [place] [facility] [address] [id number] [place] [address]- 6216 August, [facility] [place] [facility] [address] [id number] [place] [address]- 6135 August, [facility] [place] [facility] [address] [id number] [place] [address]- 4685 August, [facility] [place] [facility] [address] [id number] [place] [address]- 0729 August, [facility] [place] [facility] [address] [id number] [place] [address]- 8227 August, [facility] [place] [facility] [address] [id number] [place] [address]- 6697 August, [facility] [place] [facility] [address] [id number] [place] [address]- 4912 August, [facility] [place] [facility] [address] [id number] [place] [address]- 8170 August, [facility] [address] [id number] [place] [address]- 5136 August, [facility] [place] [facility] [address] [id number] [place] [address] August, [facility] [place] [facility] [address] [id number] [place] [address]- 2441 August, [facility] [place] [facility] [address] [id number] [place] [address]- 9403 August, [facility] [place] [facility] [address] [id number] [place] [address]- 0589 August, [facility] [place] [facility] [address] [id number] [place] [address]- 4271 Jul, [facility] [place] [facility] [address] [id number] [place] [address]- 3585 Jul, [facility] [place] [facility] [address] [id number] [place] [address]- 9505 Jul, [facility] [place] [facility] [address] [id number] [place] [address]- 4637 Jul, [facility] [place] [facility] [address] [id number] [place] [address]- 0477 Jun, [facility] [place] [facility] [address] [id number] [place] [address]- 4559 Jun, [facility] [place] [facility] [address] [id number] [place] [address]- 5627 Jun, [facility] [place] [facility] [address] [id number] [place] [address]- 2943 Jun, [facility] [place] [facility] [address] [id number] [place] [address]- 1862 Jun, [facility] [place] [facility] [address] [id number] [place] [address]- 7432 Jun, [facility] [place] [facility] [address] [id number] [place] [address]- 8327 14 Jun, 2013 [facility] [place] [facility] [address] [id number] [place] [address]- 6085 14 Jun, 2013 [facility] [place] [facility] [address] [id number] [place] [address]- 9237 06 Jun, 2013 [facility] [place] [facility] [address] [id number] [place] [address]- 6425 06 Jun, 2013 [facility] [place] [facility] [address] [id number] [place] [address]- 8740 27 May, 2013 [facility] [place] [facility] [address] [id number] [place] [address]- 4379 May, [facility] [place] [facility] [address] [id number] [place] [address]- 4259 May, [facility] [place] [facility] [address] [id number] [place] [address]- 3375 May, [facility] [place] [facility] [address] [id number] [place] [address]- 2557 May, [facility] [place] [facility] [address] [facility] [id number] [place] [address]- 5977 May, [facility] [place] [facility] [address] [id number] [place] [address]- 1119 20 May, 2013 [facility] [place] [facility] [address] [id number] [place] [address]- 5293 May, [facility] [place] [facility] [address] [id number] [place] [address]- 2942 May, [facility] [place] [facility] [address] [id number] [place] [address]- 6970 18 May, 2013 [facility] [place] [facility] [address] [id number] [place] [address]- 0965 18 May, 2013 [facility] [place] [facility] [address] [id number] [place] [address]- 0386 17 May, 2013 [facility] [place] [facility] [address] [id number] [place] [address]- 5056 May, [facility] [place] [facility] [address] [id number] [place] [address]- 9556 May, [facility] [place] [facility] [address] [id number] [place] [address]- 1086 May, [facility] [place] [facility] [address] [id number] [place] [address] 2548 07 May, 2013 [facility] [place] [facility] [address] [id number] [place] [address]- 6383 May, [facility] [place] [facility] [address] [id number] [place] [address]- 6786 Apr, [facility] [place] [facility] [address] [id number] [place] [address]- 6888 Apr, [facility] [place] [facility] [address] [id number] [place] [address]- 0798 Apr, [facility] [place] [facility] [address] [facility] [id number] [place] [address]- 0924 Apr, [facility] [place] [facility] [address] [facility] [id number] [place] [address]- 8312 Apr, [facility] [place] [facility] [address] [id number] [place] [address]- 5487 Apr, [facility] [place] [facility] [address] [id number] [place] [address]- 7886 Apr, [facility] [place] [facility] [address] [id number] [place] [address]- 8116 Mar, [facility] [place] [facility] [address] [id number] [place] [address]- 2546 Mar, [facility] [place] [facility] [address] [id number] [place] [address]- 7833 Mar, [facility] [address] [id number] [place] [address]- 1474 Mar, [facility] [place] [facility] [address] [id number] [place] [address]- 1933 Mar, [facility] [place] [facility] [address] [id number] [place] [address]- 5518 Mar, [facility] [place] [facility] [address] [id number] [place] [address]- 5205 Mar, [facility] [address] [id number] [place] [address]163 Mar, [facility] [place] [facility] [address] [id number] [place] [address]- 3690 Mar, [facility] [place] [facility] [address] [id number] [place] [address] Mar, [facility] [place] [facility] [address] [id number] [place] [address]- 2354 Mar, [facility] [place] [facility] [address] [id number] [place] [address]- 0610 Feb, [facility] [place] [facility] [address] [id number] [place] [address]- 9925 Feb, [facility] [place] [facility] [address] [id number] [place] [address]- 8047 Feb, [facility] [place] [facility] [address] [id number] [place] [address]- 3386 Feb, [facility] [place] [facility] [address] [id number] [place] [address]- 4850 Feb, [facility] [place] [facility] [address] [id number] [place] [address]- 0877 Feb, [facility] [place] [facility] [address] [id number] [place] 15 Feb, 2013 [facility] [place] [facility] [address] [id number] [place] [address]- 6416 14 Feb, 2013 [facility] [place] [facility] [address] [id number] [place] [address]- 5348 14 Feb, 2013 [facility] [place] [facility] [address] [id number] [place] [address]- 0360 Feb, [facility] [place] [facility] [address] [facility] [id number] [place] [address]- 8071 13 Feb, 2013 [facility] [place] [facility] [address] [id number] [place] [address]- 9304 12 Feb, 2013 [facility] [place] [facility] [address] [id number] [place] [address]- 6683 Feb, [facility] [place] [facility] [address] [id number] [place] [address]- 4040 Feb, [facility] [place] [facility] [address] [facility] [id number] [place] [address]- 2997 Feb, [facility] [place] [facility] [address] [id number] [place] [address]- 8098 Feb, [facility] [place] [facility] [address] [facility] [id number] [place] [address]- 6515 Jan, [facility] [place] [facility] [address] [facility] [id number] [place] [address]- 9981 Jan, [facility] [place] [facility] [address] [id number] [place] [address]- 1356 24 Jan, 2013 [facility] [place] [facility] [address] [id number] [place] [address]- 8725 Jan, [facility] [place] [facility] [address] [id number] [place] [address]- 0748 24 Jan, 2013 [facility] [place] [facility] [address] [facility] [id number] [place] [address]- 6052 Jan, [facility] [place] [facility] [address] [facility] [id number] [place] [address]- 1380 Jan, [facility] [place] [facility] [address] [id number] [place] [address]- 2167 10 Jan, 2012 [facility] [place] [facility] [address] [id number] [place] [address]- 1867 10 Jan, 2013 [facility] [place] [facility] [address] [id number] [place] [address]- 2546 27 Dec, 2012 [facility] [place] [facility] [address] [id number] [place] [address] 2546 20 Dec, 2012 [facility] [place] [facility] [address] [id number] [place] [address] 2547 19 Dec, 2012 [facility] [place] [facility] [address] [id number] [place] [address]- 5788 10 Dec, 2012 [facility] [place] [facility] [address] [id number] [place] [address]- 6976 04 Dec, 2012 [facility] [place] [facility] [address] [id number] [place] [address]- 9913 03 Dec, 2012 [facility] [place] [facility] [address] [id number] [place] [address]- 6964 Nov, [facility] [place] [facility] [address] [id number] [place] [address]- 1496 Nov, [facility] [place] [facility] [address] [id number] [place] [address]- 3906 Nov, [facility] [place] [facility] [address] [id number] [place] [address]- 2549 Nov, [facility] [place] [facility] [address] [id number] [place] [address] 2545 Nov, [facility] [place] [facility] [address] [id number] [place] [address]- 2543 Nov, [facility] [place] [facility] [address] [id number] [place] [address]- 2548 Nov, [facility] [place] [facility] [address] [id number] [place] [address]- 4972 Nov, [facility] [place] [facility] [address] [id number] [place] [address]- 3873 Nov, [facility] [place] [facility] [address] [id number] [place] [address]- 5073 Nov, [facility] [place] [facility] [address] [id number] [place] [address]- 4164 Oct, [facility] [place] [facility] [address] [id number] [place] [address]- 1644 Oct, [facility] [place] [facility] [address] [id number] [place] [address]- 7991 Oct, [facility] [place] [facility] [address] [id number] [place] [address]- 2484 Oct, [facility] [place] [facility] [address] [id number] [place] [address]- 8644 Oct, [facility] [place] [facility] [address] [id number] [place] [address]- 2154 Oct, [facility] [place] [facility] [address] [id number] [place] [address]- 3696 Oct, [facility] [place] [facility] [address] [id number] [place] [address]- 8565 Oct, [facility] [place] [facility] [address] [id number] [place] [address]- 0448 Sep, [facility] [place] [facility] [address] [id number] [place] [address]- 3865 Sep, [facility] [place] [facility] [address] [id number] [place] [address]- 0425 Sep, [facility] [place] [facility] [address] [id number] [place] [address]- 5004 Sep, [facility] [place] [facility] [address] [id number] [place] [address]- 5226 Sep, [facility] [place] [facility] [address] [id number] [place] [address]- 8619 Sep, [facility] [address] [id number] [place] [address]- 9741 Sep, [facility] [address] [id number] [place] [address]- 0224 Sep, [facility] [address] [id number] [place] [address]- 0347 August, [facility] [address] [id number] [place] [address]- 5783 August, [facility] [address] [id number] [place] [address]- 3598 August, [facility] [address] [id number] [place] [address]- 5137 August, [facility] [address] [id number] [place] [address]- 7817 August, [facility] [address] [id number] [place] [address]- 3662 Jul, [facility] [address] [id number] [place] [address]- 0504 Jul, [facility] [address] [id number] [place] [address]- 6361 Jul, [facility] [address] [id number] [place] [address]- 0964 Jul, [facility] [address] [id number] [place] [address]- 4016 Jul, [facility] [place] [facility] [address] [id number] [place] [address]- 5527 Jun, [facility] [place] [facility] [address] [id number] [place] [address]- 6638 18 Jun, 2012 [facility] [address] [id number] [place] [address]- 6713 15 Jun, 2012 [facility] [address] [id number] [place] [address]- 2173 14 Jun, 2012 [facility] [place] [facility] [address] [id number] [place] [address]- 3215 Jun, [facility] [place] [facility] [address] [id number] [place] [address]- 4382 08 Jun, 2012 [facility] [place] [facility] [address] [id number] [place] [address]- 0666 08 Jun, 2012 [facility] [place] [facility] [address] [id number] [place] [address]- 9669 Jun, [facility] [place] [facility] [address] [id number] [place] [address]- 3484 Jun, [facility] [address] [id number] [place] [address]- 2873 May, [facility] [place] [facility] [address] [id number] [place] [address]- 3321 May, [facility] [place] [facility] [address] [id number] [place] [address]- 2025 May, [facility] [place] [facility] [address] [id number] [place] [address]- 1032 May, [facility] [place] [facility] [address] [id number] [place] [address]- 8685 Apr, [facility] [place] [facility] [address] [id number] [place] [address]- 4489 Apr, [facility] [place] [facility] [address] [id number] [place] [address]- 8729 Apr, [facility] [place] [facility] [address] [id number] [place] [address]- 3023 Apr, [facility] [place] [facility] [address] [id number] [place] [address]- 7583 Apr, [facility] [place] [facility] [address] [id number] [place] [address]- 4712 Apr, [facility] [address] [id number] [place] [address]- 3470 Apr, [facility] [address] [id number] [place] [address]- 2476 Mar, [facility] [place] [id number] Mar, [facility] [address] [id number] [place] [address]- 4638 Mar, [facility] [address] [id number] [place] [address]- 1899 Mar, [facility] [address] [id number] [place] [address] Mar, [facility] [address] [id number] [place] [address] Mar, [facility] [address] [id number] [place] [address] Mar, [facility] [address] [id number] [place] [address] Mar, [facility] [address] [id number] [place] [address] Mar, [facility] [address] [id number] [place] [address] Mar, [facility] [address] [id number] [place] [address] Mar, [facility] [address] [id number] [place] [address] Mar, [facility] [address] [id number] [place] [address] Mar, [facility] [address] [id number] [place] [address] Mar, [facility] [address] [id number] [place] [address] Mar, [facility] [place] [facility] [address] [id number] [place] [address] Mar, [facility] [place] [facility] [address] [id number] [place] [address] Mar, [facility] [place] [facility] [address] [id number] [place] [address] Feb, [facility] [place] [facility] [address] [id number] [place] [address] Feb, [facility] [place] [facility] [address] [id number] [place] [address] Feb, [facility] [place] [facility] [address] [id number] [place] [address] Feb, [facility] [place] [facility] [address] [id number] [place] [address] 39[address] Feb, [facility] [place] [facility] [address] [id number] [place] [address] Feb, [facility] [place] [facility] [address] [id number] [place] [address] Feb, [facility] [place] [facility] [address] [id number] [place] [address] Feb, [facility] [place] [facility] [address] [id number] [place] [address] Feb, [facility] [place] [facility] [address] [id number] [place] [address] 16 Feb, 2012 [facility] [place] [facility] [address] [id number] [place] [address] 13 Feb, 2012 [facility] [place] [facility] [address] [id number] [place] [address] 13 Feb, 2012 [facility] [place] [facility] [address] [id number] [place] [address] Feb, [facility] [place] [facility] [address] [id number] [place] [address] Feb, [facility] [place] [facility] [address] [id number] [place] [address] Feb, [facility] [place] [facility] [address] [id number] [place] [address]697 Feb, [facility] [place] [facility] [address] [id number] [place] [address] Jan, [facility] [place] [facility] [address] [id number] [place] Jan, [facility] [place] [facility] [address] [id number] [place] [address] Jan, [facility] [place] [facility] [address] [id number] [place] [address] Jan, [facility] [place] [facility] [address] [id number] [place] [address] Jan, [facility] [place] [facility] [address] [id number] [place] [address]99 Jan, [facility] [place] [facility] [address] [id number] [place] [address] Jan, [facility] [place] [facility] [address] [id number] [place] [address] 6697 Jan, [facility] [place] [facility] [address] [id number] [place] [address] Jan, [facility] [place] [facility] [address] [id number] [place] [address] Jan, [facility] [place] [facility] [address] [id number] [place] [address] Jan, [facility] [place] [facility] [address] [id number] [place] [address] Jan, [facility] [place] [facility] [address] [id number] [place] [address] Jan, [facility] [place] [facility] [address] [id number] [place] [address]- [address]24 11 Jan, 2012 [facility] [place] [facility] [address] [id number] [place] [address]- [address]166 08 Jan, 2012 [facility] [place] [facility] [address] [id number] [place] [address]- [address]186 05 Jan, 2012 [facility] [place] [facility] [address] [id number] [place] [address]- 8587 04 Jan, 2012 [facility] [place] [facility] [address] [id number] [place] [address]- [address]97 21 Dec, 2011 [facility] [place] [facility] [address] [id number] [place] [address]- [address] 20 Dec, 2011 [facility] [place] [facility] [address] [id number] [place] [address] 18 Dec, 2011 [facility] [place] [facility] [address] [id number] [place] [address]- 8339 18 Dec, 2011 [facility] [place] [facility] [address] [id number] [place] [address]- 3740 10 Dec, 2011 [facility] [place] [facility] [address] [id number] [place] [address] 2549 10 Dec, 2011 [facility] [place] [facility] [address] [id number] [place] [address]- 1731 10 Dec, 2011 [facility] [place] [facility] [address] [id number] [place] [address]- [address]93 07 Dec, 2011 [facility] [place] [facility] [address] [id number] [place] [address]- [address] 30 Nov, 2011 [facility] [place] [facility] [address] [id number] [place] [address]- [address]45 25 Nov, 2011 [facility] [place] [facility] [address] [id number] [place] [address]- 9748 24 Nov, 2011 [facility] [place] [facility] [address] [id number] [place] [address] Nov, [facility] [place] [facility] [address] [id number] [place] [address]- [address]116 Nov, [facility] [place] [facility] [address] [id number] [place] [address] Nov, [facility] [place] [facility] [address] [id number] [place] [address]- 5516 Oct, [facility] [place] [facility] [address] [id number] [place] [address]- [address]44 Oct, [facility] [place] [facility] [address] [id number] [place] [address]- 8983 Oct, [facility] [place] [facility] [address] [id number] [place] [address] 5739 Oct, [facility] [place] [facility] [address] [id number] [place] [address]- 9265 Oct, [facility] [address] [id number] [place] [address]- 7034 Oct, [facility] [place] [facility] [address] [id number] [place] [address] 6362 Oct, [facility] [address] [id number] [place] [address]- [address] Sep, [facility] [place] [facility] [address] [id number] [place] [address]- 97[address] Sep, [facility] [place] [facility] [address] [id number] [place] [address]- 2549 Sep, [facility] [place] [facility] [address] [id number] [place] [address]- [address] Sep, [facility] [facility] [address] [id number] [place] [address] Sep, [facility] [address] [id number] [place] [address] 15 Sep, 2011 [facility] [place] [facility] [address] [id number] [place] [address] 14 Sep, 2011 [facility] [place] [facility] [address] [id number] [place] [address] Sep, [facility] [place] [facility] [address] [id number] [place] [address] Sep, [facility] [place] [facility] [address] [id number] [place] [address] Sep, [facility] [place] [facility] [address] [id number] [place] [address] August, [facility] [place] [facility] [address] [id number] [place] [address] August, [facility] [place] [facility] [address] [id number] [place] [address] August, [facility] [place] [facility] [address] [id number] [place] [address] August, [facility] [place] [facility] [address] [id number] [place] [address] August, [facility] [place] [facility] [address] [id number] [place] [address] Jul, [facility] [place] [facility] [address] [id number] [place] [address] Jul, [facility] [place] [facility] [address] [id number] [place] [address] Jul, [facility] [place] [facility] [address] [id number] [place] [address] 17 Jul, 2011 [facility] [place] [facility] [address] [id number] [place] [address] Jul, [facility] [place] [address] [id number] [place] [address] Jul, [facility] [place] [facility] [address] [id number] [place] [address] 06 Jul, 2011 [facility] [place] [facility] [address] [id number] [place] [address] Jun, [facility] [address] [id number] [place] [address] Jun, [facility] [address] [id number] [place] [address] Jun, [facility] [facility] [address] [id number] [place] [address] Jun, [facility] [address] [id number] [place] [address] Jun, [facility] [address] [id number] [place] [address]- [address]27 May, [facility] [address] [id number] [place] [address]28 May, [facility] [address] [id number] [place] [address]- 7905 May, [facility] [address] [id number] [place] [address] May, [facility] [address] [facility] [id number] [place] [address] May, [facility] [address] [id number] [place] [address]- [address]353 May, [facility] [address] [id number] [place] [address] Apr, [facility] [address] [id number] [place] [address] Mar, [facility] [address] [id number] [place] [address] Feb, [facility] [address] [id number] [place] [address] Feb, [facility] [address] [id number] [place] [address] 9665 Feb, [facility] [address] [id number] [place] [address] Feb, [facility] [address] [id number] [place] [address] Jan, [facility] [address] [id number] [place] [address] Jan, [facility] [address] [id number] [place] [address] 9495 Jan, [facility] [facility] [address] [id number] [place] [address]- 8766 24 Jan, 2011 [facility] [facility] [address] [id number] [place] [address] Jan, [facility] [address] [id number] [place] [address] Dec, [facility] [address] [id number] [place] [address] 8701 Oct, [facility] [address] [facility] [id number] [place] [address] August, [facility] [address] [id number] [place] [address] 8075 Mar, [facility] [address] [id number] [place] [address]- [address]90 27 Mar, 2010 [facility] [address] [id number] [place] [address]- 1726 16 Mar, 2010 [facility] [address] [id number] [place] [address] 8436 15 Mar, 2010 [facility] [address] [id number] [place] [address]- [address] 15 Mar, 2010 [facility] [address] [id number] [place] [address] 9[address] 08 Mar, 2010 [facility] [address] [id number] [place] [address]- 5688 03 Mar, 2010 [facility] [address] [id number] [place] [address]- [address]65 Feb, [facility] [address] [facility] [id number] [place] [address]- [address] 24 Feb, 2010 [facility] [address] [id number] [place] [address]- 6982 15 Feb, 2010 [facility] [address] [id number] [place] [address]- 7417 Jan, [facility] [address] [facility] [id number] [place] [address]- 6134 Jan, [facility] [address] [facility] [id number] [place] [address]- 9319 Jan, [facility] [address] [facility] [id number] [place] [address]- 1655 Nov, [facility] [address] [facility] [id number] [place] [address] Sep, [facility] [address] [facility] [id number] [place] [address]- 2012 August, [facility] [address] [facility] [id number] [place] [address]- 8792 30 Mar, 2009 [facility] [address] [id number] [place] [address]- 0963 07 Mar, 2009 [facility] [address] [facility] [id number] [place] [address]- 2685 17 Feb, 2009 [facility] [address] [facility] [id number] [place] [address]- 8473 10 Feb, 2009 [facility] [address] [facility] [id number] [place] [address]- 7984 10 Feb, 2009 [facility] [address] [id number] [place] [address] 277[address] 10 Feb, 2009 [facility] [id number] [place] [address] Feb, [facility] [id number] [place] [address] 8642 Jan, [facility] [id number] [place] [address]- 6706 Jan, [facility] [id number] [place] [address]- 8313 Jan, [facility] [id number] [place] [address] Jan, [facility] [id number] [place] [address] 8258 Nov, [facility] [id number] [place] [address]- 7570 Sep, [facility] [id number] [place] [address] 6072 August, [facility] [id number] [place] [address]- 3[address] Jul, [facility] [address] [id number] [place] [address] 1719 May, IMMUNIZATIONS No Known Immunizations SOCIAL HISTORY Never Assessed REASON FOR VISIT Refill request PLAN OF CARE VITAL SIGNS MEDICATIONS Medication Instructions Dosage Frequency Start Date End Date Duration Status Trintellix 20 mg Orally Once a day 1 tablet 24h Dec, 90 days Active RESULTS No Results PROCEDURES No [...]
--- OUTSIDE RECORDS SUMMARY | 2017-10-09 17:10 | XMS REPORT ---
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 Active 62873324 Problem Colon polyp K63.5 Active 47231891 Problem Bilateral low back pain without sciatica M54.5 Active 666230670 Problem Screening breast examination Z12.39 Active 515036575 Problem Postmenopausal Z78.0 Active 54888575 Problem Osteopenia M85.80 Active 267218283 Problem Cigarette nicotine dependence without complication F17.210 Active 68721651 Problem Type 2 diabetes mellitus with diabetic peripheral angiopathy without gangrene E11.51 Active 309356036 Problem Vascular dementia without behavioral disturbance F01.50 Active [id number] Problem Unspecified atherosclerosis of [place] arteries of extremities, unspecified extremity I70.209 Active 769358073784114 Problem Arthritis M19.90 Active 1329569 Problem Chronic atrial fibrillation I48.2 Active 365357741 Problem Chronic obstructive pulmonary disease with acute lower respiratory infection J44.0 Active 148703923 Problem Other chronic pancreatitis K86.1 Active 649737973 Problem Stress incontinence of urine N39.3 Active 11454043 Problem Controlled type 2 diabetes mellitus without complication, without long -term current use of insulin E11.9 Active 348928702 Problem Unspecified psychosis F29 Active 75498670 Problem Xeroderma Q80.9 Active 51579535 Problem COPD (chronic obstructive pulmonary disease) J44.9 Active 62245696 Problem Dementia without behavioral disturbance, unspecified dementia type F03.90 Active 14586772 Problem Gastroparesis K31.84 Active 405599347 Problem Type 2 diabetes mellitus with diabetic neuropathy, without long-term current use of insulin E11.40 Active 53277210 Problem Osteoporosis M81.0 Active 40267195 Problem Atherosclerosis of [place] artery of both lower extremities with intermittent claudication I70.213 Active 594938314570994 Problem Hyperlipidemia E78.5 Active 39738875 Problem Diabetic polyneuropathy associated with type 2 diabetes mellitus E11.42 Active 40865253 Problem Essential tremor G25.0 Active 66726082 Problem Atherosclerotic heart disease of [place]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 I25.118 Active 7651797233066 Problem Generalized anxiety disorder F41.1 Active 769097837 Problem Gastroesophageal reflux disease, esophagitis presence not specified K21.9 Active 416183934 Problem 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.118 Active 4409666228190 Problem Postconcussion syndrome F07.81 Active 46219042 Problem Chronic pain syndrome G89.4 Active 440188244 Problem Migraine without aura and without status migrainosus, not intractable G43.009 Active 275445371 Problem Paroxysmal atrial fibrillation I48.0 Active 848434200 Problem Migraine without aura and with status migrainosus, not intractable G43.001 Active 105639713 Problem Cervicalgia M54.2 Active 9842443502404 Problem Acute exacerbation of chronic obstructive pulmonary disease (COPD) J44.1 Active 742098979 Problem Major depressive disorder, recurrent episode, moderate F33.1 Active 730694638 Problem Crohn''s disease without complication, unspecified gastrointestinal tract location K50.90 Active 23257788 Problem Chronic fatigue R53.82 Active 21626726 Problem Bipolar affective disorder, currently depressed, moderate F31.32 Active 204184060 ALLERGIES No Information ENCOUNTERS Encounter Location Date Diagnosis [facility] [id number] [address] Nov, [facility] [address], [place] [address] Oct, [facility] [id number] [id number] Sep, [facility] [id number] [id number] Sep, [facility] [address] [address] Sep, [facility] [id number] [place] [address] 87587- 5872 Sep, [facility] [id number] [place] [address] [id number]- 0312 August, [facility] [id number] [place] [address] 94856- 2525 August, [facility] [id number] [place] [address] 50239- 5633 August, Type 2 diabetes mellitus with diabetic neuropathy, without long-term current use of insulin E11.40 and Sprain of right ankle, unspecified ligament, initial encounter S93.401A [facility] [id number] [place] [address] 25102- 0568 August, [facility] [id number] [place] [address] 71522- 0828 August, [facility] [id number] [place] [address] 45760- 8585 August, [facility] [id number] [place] [address] 76825- 2662 August, Gastroesophageal reflux disease, esophagitis presence not specified K21.9 [facility] [id number] [place] [address] 13596- 9342 August, [facility] [id number] [place] [address] 78912- 5783 August, [facility] [address], [place] [address] 5[address] August, [facility] [id number] [place] [address] 00536- 3881 August, Type 2 diabetes mellitus with diabetic neuropathy, without long-term current use of insulin E11.40 and Elevated liver enzymes R74.8 [facility] [id number] [place] [address] 75373- 4546 Jul, [facility] [id number] [place] [address] 25829- 7574 Jul, Cough R05 [facility] [id number] [place] [address] 95717- 5089 Jul, [facility] [id number] [place] [address] 59645- 8523 Jul, [facility] [address] 27790- 1414 Jul, Bipolar affective disorder, currently depressed, moderate F31.32 ; Vascular dementia without behavioral disturbance F01.50 and Generalized anxiety disorder F41.1 [facility] [id number] [place] [address] 41889- 8644 Jul, [facility] [address] 06344- 0586 Jul, Type 2 diabetes mellitus with diabetic neuropathy, without long-term current use of insulin E11.40 and Elevated liver enzymes R74.8 [facility] [id number] [place] [address] 65751- 2365 Jul, [facility] [id number] [place] [address] 32864- 5733 Jul, [facility] [id number] [place] [address] 53922- 0292 Jul, [facility] [address] 84154- 2867 Jul, Post-menopausal Z78.0 [facility] [id number] [place] [address] 91196- 4931 Jul, Stress incontinence of urine N39.3 [facility] [id number] [place] [address] 76000- 2128 Jul, [facility] [id number] [place] [address] 28350- 0922 Jul, [facility] [id number] [place] [address] 08837- 5988 Jul, Stress incontinence of urine N39.3 and Cough R05 [facility] [id number] [place] [address] 70594- 3848 Jul, [facility] [id number] [place] [address] 05725- 4216 Jul, [facility] [id number] [place] [address] 53233- 6023 Jul, [facility] [id number] [place] [address] 01065- 9988 Jul, Gastroesophageal reflux disease, esophagitis presence not specified K21.9 [facility] [id number] [place] [address] 98151- 2563 Jun, Diabetic polyneuropathy associated with type 2 diabetes mellitus E11.42 [facility] [id number] [place] [address] 56674- 5151 Jun, Diabetic polyneuropathy associated with type 2 diabetes mellitus E11.42 ; 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.118 and Paroxysmal atrial fibrillation I48.0 [facility] [id number] [place] [address] 86249- 2503 Jun, [facility] [id number] [place] [address] 01533- 8978 Jun, [facility] [id number] [place] [address] 75335- 2249 Jun, Gastroenteritis K52.9 [facility] [id number] [place] [address] 52994- 1831 Jun, Gastroenteritis K52.9 [facility] [id number] [place] [address] 99641- 1819 Jun, [facility] [id number] [place] [address] 96240- 8440 Jun, [place] [id number] [place] [address] 21868- 4375 Jun, Sprain of right ankle, unspecified ligament, initial encounter S93.401A ; Type 2 diabetes mellitus with diabetic neuropathy, without long-term current use of insulin E11.40 ; Atherosclerosis of [place] artery of both lower extremities with intermittent claudication I70.213 ; Atherosclerotic heart disease of [place]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 I25.118 ; Chronic atrial fibrillation I48.2 and Crohn''s disease without complication, unspecified gastrointestinal tract location K50.90 [facility] [id number] [place] [address] 46817 -2644 17 Jun, 2017 Chronic obstructive pulmonary disease with acute lower respiratory infection J44.0 and Cough R05 [place] [id number] [place] [address] 98269- 6539 16 Jun, 2017 [place] [id number] [place] [address] 94655- 5949 15 Jun, 2017 Coughing R05 ; Unspecified atherosclerosis of [place] arteries of extremities, unspecified extremity I70.209 ; Type 2 diabetes mellitus with diabetic peripheral angiopathy without gangrene E11.51 ; Crohn''s disease without complication, unspecified gastrointestinal tract location K50.90 ; Other chronic pancreatitis K86.1 and Chronic atrial fibrillation I48.2 [facility] [id number] [place] [address] 67931 -0466 Jun, [place] [id number] [place] [address] 86924- 2068 Jun, Bipolar affective disorder, currently depressed, moderate F31.32 ; Vascular dementia without behavioral disturbance F01.50 and Generalized anxiety disorder F41.1 [facility] [facility] [id number] [place] [address] 50333- 0659 May, Generalized anxiety disorder F41.1 [place] [facility] [id number] [place] [address] 16872- 2782 May, [facility] [id number] [place] [address] 17218- 2858 May, [facility] [address] 13449- 7259 May, Coughing R05 [facility] [id number] [place] [address] 06089- 7911 May, [facility] [address] 83531- 3481 May, Bipolar affective disorder, currently depressed, moderate F31.32 ; Vascular dementia without behavioral disturbance F01.50 and Generalized anxiety disorder F41.1 [place] [address] 05789- 9569 Apr, Generalized anxiety disorder F41.1 [place] [id number] [place] [address] 91785- 1260 Apr, [place] [address] 51978- 5054 Apr, Vascular dementia without behavioral disturbance F01.50 ; Generalized anxiety disorder F41.1 and Bipolar affective disorder, currently depressed, moderate F31.32 [place] [facility] [id number] [place] [address] 28589- 1161 Apr, Generalized anxiety disorder F41.1 [facility] [id number] [place] [address] 48494 -5290 Apr, Cough R05 and Acute exacerbation of chronic obstructive pulmonary disease (COPD) J44.1 [facility] [id number] [place] [address] 28544- 0009 Apr, [facility] [address] 54288 -9355 Mar, Cough R05 and Cigarette nicotine dependence without complication F17.210 [place] [id number] [place] [address] 85294- 7021 Mar, [place] [id number] [place] [address] 95161- 1889 Feb, Generalized anxiety disorder F41.1 ; Major depressive disorder, recurrent episode, moderate F33.1 ; Vascular dementia without behavioral disturbance F01.50 and Unspecified psychosis F29 [place] [id number] [place] [address] 14527- 8057 Feb, [place] [address] 29587- 0192 Feb, [place] [id number] [place] [address] 98688- 5887 Feb, Generalized anxiety disorder F41.1 [place] [id number] [place] [address] 56769- 2904 Feb, Generalized anxiety disorder F41.1 [place] [address] 79381- 8806 Feb, Dizziness R42 ; Chronic fatigue R53.82 ; Postconcussion syndrome F07.81 ; Fall, initial encounter W19.XXXA and Disorientation R41.[address] 87371- 3394 Feb, Postconcussion syndrome F07.81 ; Injury of head, initial encounter S09.90XA ; Fall, initial encounter W19.XXXA ; Disorientation R41.0 and Acute cystitis with hematuria N30.01 [facility] [id number] [place] [address] 15187- 1054 Jan, Gastroesophageal reflux disease, esophagitis presence not specified K21.9 ; Post-menopausal Z78.0 and Migraine without aura and without status migrainosus, not intractable G43.009 [place] [id number] [place] [address] 12062- 9925 Jan, [place] [id number] [place] [address] 96608- 2931 Jan, Generalized anxiety disorder F41.1 ; Major depressive disorder, recurrent episode, moderate F33.1 ; Vascular dementia without behavioral disturbance F01.50 and Unspecified psychosis F29 [facility] [id number] [place] [address] 84459- 1105 Jan, Pneumonia of left lower lobe due to infectious organism J18.1 [facility] [id number] [place] [address] 46795- 2319 Jan, Migraine without aura and with status migrainosus, not intractable G43.001 [facility] [id number] [place] [address] 82575 -7736 Jan, Migraine without aura and without status migrainosus, not intractable G43.009 [place] [id number] [place] [address] 80546- 7706 Dec, Hematoma T14.8 [place] [address] 27249- 4548 Dec, [facility] [id number] [place] [address] 56700 -2957 Nov, Fatigue, unspecified type R53.83 [place] [id number] [place] [address] 15293- 5202 Nov, Scabies B86 and 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.118 [place] [id number] [place] [address] 80842- 3906 Nov, [place] [id number] [place] [address] 43887- 3013 Nov, [place] [address] 33394- 3064 Oct, [place] [id number] [place] [address] 25225- 0645 Oct, Generalized anxiety disorder F41.1 and Major depressive disorder, recurrent episode, moderate F33.1 [facility] [facility] [address], [place] [address]- 6920 Oct, Cramp of both lower extremities R25.2 [facility] [id number] [address]- 8222 Oct, Leg cramps R25.2 [facility] [address], [place] [address]- 9642 Oct, Chronic pain syndrome G89.4 [facility] [id number] [address]- 5897 Oct, [facility] [id number] [place] [address] 66921- 9542 Oct, [facility] [id number] [place] [address] 20737- 7956 Oct, Routine gynecological examination Z01.419 and Screening for breast cancer Z12.31 [place] [id number] [place] [address] 61816- 1334 Sep, Diarrhea R19.7 [facility] [id number] [place] [address] 37644- 8695 Sep, Back pain M54.9 [facility] [id number] [place] [address] 00381- 8735 Sep, [facility] [address], [place] [address]- 4548 Sep, [facility] [address], [place] [address] -0232 August, Xeroderma Q80.9 [facility] [address], [place] [address]- 6740 August, Dementia without behavioral disturbance, unspecified dementia type F03.90 [facility] [address], [place] [address]- 9590 August, Chronic pain syndrome G89.4 [facility] [id number] [place] [address] 24798- 0748 August, [place] [address] 95348- 8827 August, Hyperlipidemia E78.5 ; Other fatigue R53.83 and Other specified hypotension I95.89 [facility] [address] 01490 -2389 August, Dysuria R30.0 ; Other fatigue R53.83 and Other specified hypotension I95.89 [place] [address] 42088- 2195 August, [place] [address] 52189- 4261 Jul, Pain in left knee M25.562 and Gastroenteritis K52.9 [place] [address] 98101- 1582 Jul, [place] [address] 49473- 8971 Jul, Diarrhea R19.7 [facility] [place] [address] 64604 -1911 Jul, Spider bite, accidental or unintentional, initial encounter T63.301A [place] [address] 10149- 5651 Jul, Primary osteoarthritis of right knee M17.11 and Arthritis M19.90 [place] [address] 70980- 9545 Jul, Generalized anxiety disorder F41.1 and Major depressive disorder, recurrent episode, moderate F33.1 [place] [address] 44631- 6260 Jul, Type 2 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 and Temporal headache R51 [place] [address] 58077- 4480 Jul, Back pain M54.9 [facility] [id number] [place] [address] 87242- 5206 Jul, [facility] [address] 12695- 7266 Jul, [facility] [address] 30560- 9850 30 Jun, 2016 Nausea R11.0 [facility] [address] 85287 -7843 Jun, Acute suppurative otitis media of both ears without spontaneous rupture of tympanic membranes, recurrence not specified H66.003 and COPD exacerbation J44.1 [place] [address] 92775- 7637 Jun, Generalized anxiety disorder F41.1 [place] [address] 65466- 0012 16 Jun, 2016 [facility] [address] 34052 -2091 Jun, [facility] [address] 22773 -2537 Jun, Shortness of breath R06.02 and COPD exacerbation J44.1 [place] [address] 88627- 2127 10 Jun, 2016 Eczema, unspecified type L30.9 [facility] [address] 46966- 5215 09 Jun, 2016 [place] [address] 22608- 5807 May, [place] [address] 52510- 8204 23 May, 2016 Muscle cramping R25.2 [place] [address] 28826- 1011 May, [facility] [id number] [place] [address] 56224- 7193 Apr, Diarrhea R19.7 [facility] [address] 34465- 7081 Apr, [place] [address] 14689- 5540 Apr, Chronic pain syndrome G89.4 [place] [address] 63425- 4613 Apr, Cramp of both lower extremities R25.2 and Vascular dementia without behavioral disturbance F01.50 [place] [address] 88498- 9181 Apr, Type 2 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 and Cigarette nicotine dependence without complication F17.210 [place] [address] 34630- 6765 Mar, Generalized anxiety disorder F41.1 [place] [address] 51987- 2819 Feb, Generalized anxiety disorder F41.1 and Major depressive disorder, recurrent episode, moderate F33.1 [place] [id number] [place] [address] 10093- 0213 Feb, [facility] [id number] [place] [address] 70429 -9846 Feb, Dysuria R30.0 and Acute cystitis with hematuria N30.01 [facility] [id number] [place] [address] 41550- 8736 Jan, [facility] [address] 77345- 7278 Jan, [place] [address] 52356- 8056 Jan, [place] [address] [place] [address]- 0273 11 Jan, 2016 [facility] [id number] [place] [address] 21834 -5658 10 Jan, 2016 Wasp sting, accidental or unintentional, initial encounter T63.461A [facility] [id number] [place] [address] 77172- 1965 06 Jan, 2016 Encounter for immunization Z23 [facility] [address] 26796- 8298 05 Jan, 2016 [facility] [address] 39693- 7432 Jan, [facility] [address] 82920- 0827 28 Dec, 2015 Generalized anxiety disorder F41.1 and Major depressive disorder, recurrent episode, moderate F33.1 [facility] [address] 66948- 5210 21 Dec, 2015 Routine gynecological examination Z01.419 ; Postmenopausal Z78.0 ; Screening breast examination Z12.39 ; Osteopenia M85.80 and Breast cancer screening Z12.39 [facility] [id number] [place] [address] 11708- 2268 20 Dec, 2015 [facility] [id number] [place] [address] 92745- 9736 19 Dec, 2015 [facility] [id number] [place] [address] 08888- 3101 16 Dec, 2015 [facility] [address] [id number] [place] [address] 19120- 1607 16 Dec, 2015 [facility] [address] [address]13- 3398 14 Dec, 2015 [facility] [address] [place] [id number] [place] [address] 84981- 9222 06 Dec, 2015 [facility] [address] [address]20- 4565 Nov, [facility] [address], [place] [address] Nov, Cough R05 ; Other viral agents as the cause of diseases classified elsewhere B97.89 and Acute upper respiratory infection, unspecified J06.9 [facility] [address], [place] [address] 8154 Nov, [facility] [address], [place] [address]- 3786 Nov, [facility] [address], [place] [address]- 4988 Nov, [facility] [address], [place] [address]- 8610 Nov, [facility] [address], [place] [address]- 8264 Nov, [facility] [address], [place] [address]- 7967 Oct, [facility] [address], [place] [address]- 5538 Oct, [facility] [address], [place] [address]- 7850 Oct, [facility] [address], [place] [address]- 3704 Oct, Chronic pain syndrome G89.4 [facility] [address], [place] [address] 4454 Sep, Generalized anxiety disorder F41.1 and Major depressive disorder, recurrent episode, moderate F33.1 [facility] [address], [place] [address]- 2795 Sep, [facility] [address], [place] [address]- 9084 Sep, [facility] [id number] [place] [address] 30604- 5721 14 Sep, 2015 Generalized anxiety disorder F41.1 [facility] [id number] [place] [address] 97842- 5562 13 Sep, 2015 Cramp of both lower extremities R25.2 and Cervicalgia M54.2 [facility] [address] [id number] [place] [address] 92270- 3444 06 Sep, 2015 Generalized anxiety disorder F41.1 [facility] [address] [id number] [place] [address] 37040- 6690 Sep, [facility] [id number] [place] [address] 16806 -4543 August, Rash R21 ; Itching L29.9 and Allergic response, subsequent encounter T78.40XD [place] [address] [id number] [place] [address] 48128- 5989 August, Primary insomnia F51.01 [facility] [id number] [place] [address] 61485 -0784 August, Rash R21 ; Itching L29.9 and Allergic response, initial encounter T78.40XA [place] [address] [id number] [place] [address] 98840- 7913 August, [facility] [address] [id number] [place] [address] 22065- 1988 August, Cramp of both lower extremities R25.2 [facility] [address] [address] [id number] [place] [address] 54099- 4535 August, Back pain M54.9 [facility] [address] [id number] [place] [address] 83370- 9842 August, [facility] [id number] [place] [address] 19104- 3479 August, [facility] [id number] [place] [address] 41569 -2639 August, Cramp of both lower extremities R25.2 [facility] [id number] [place] [address] 64367- 3702 August, [facility] [id number] [place] [address] 35687- 3655 August, Syncope R55 ; Paroxysmal atrial fibrillation I48.0 ; Dementia without behavioral disturbance, unspecified dementia type F03.90 and Chronic pain syndrome G89.4 [facility] [id number] [place] [address] 02901- 6529 August, Type 2 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 and Syncope R55 [facility] [id number] [place] [address] 29450- 6307 Jul, [facility] [id number] [place] [address] 33536- 4882 Jul, [facility] [id number] [place] [address] 12852- 5708 Jul, [facility] [id number] [place] [address] 20527- 7529 Jul, [facility] [id number] [place] [address] 24721- 8562 Jul, [facility] [id number] [place] [address] 01248- 9208 Jul, UTI (urinary tract infection) N39.0 [facility] [id number] [place] [address] 93389- 1502 Jul, [facility] [id number] [place] [address] 37314- 1321 Jul, Major depressive disorder, recurrent episode, moderate F33.1 and Generalized anxiety disorder F41.1 [facility] [id number] [place] [address] 27052- 3400 Jul, Generalized anxiety disorder F41.1 [facility] [id number] [place] [address] 88004- 6075 Jul, Diarrhea R19.7 [facility] [address], [place] [address]- 0499 Jul, [facility] [address], [place] [address]- 2443 Jun, [facility] [id number] [place] [address] 67938- 2407 Jun, Eczema L30.9 [facility] [id number] [place] [address] 15757- 3280 Jun, [facility] [id number] [place] [address] 93015- 2498 Jun, COPD (chronic obstructive pulmonary disease) J44.9 [facility] [id number] [place] [address] 22350- 9085 Jun, [facility] [id number] [place] [address] 15245- 5234 Jun, Major depressive disorder, recurrent episode, moderate F33.1 and Generalized anxiety disorder F41.1 [facility] [id number] [place] [address] 70551- 7361 May, [facility] [address], [place] [address]- 0475 May, UTI (urinary tract infection) N39.0 [facility] [address], [place] [address]- 1661 May, [facility] [address], [place] [address]- 5892 May, [facility] [address], [place] [address]- 3695 May, [facility] [address], [place] [address]- 8631 May, [facility] [id number] [place] [address] 16797- 7145 Apr, Major depressive disorder, recurrent episode, moderate F33.1 and Generalized anxiety disorder F41.1 [facility] [id number] [place] [address] 62535- 8630 Apr, COPD (chronic obstructive pulmonary disease) J44.9 [facility] [id number] [place] [address] 72872- 9205 Apr, [facility] [id number] [place] [address] 59610- 5903 Apr, Atrial flutter I48.92 [facility] [address] [id number] [place] [address] 27677- 6100 Apr, [facility] [id number] [place] [address] 19954- 0920 Apr, [facility] [id number] [place] [address] 25452- 9295 Mar, [facility] [id number] [place] [address] 47995- 3200 Mar, [facility] [id number] [place] [address] 75753- 8607 Mar, [facility] [id number] [place] [address] 52046- 0311 Mar, Hyperlipidemia E78.5 ; Type 2 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 ; Major depressive disorder, recurrent episode, moderate F33.1 and Chronic pain syndrome G89.4 [facility] [id number] [place] [address] 53494- 7836 Mar, [facility] [id number] [place] [address] 93341- 3697 Mar, [facility] [id number] [place] [address] 65646- 4413 Mar, [facility] [id number] [place] [address] 48420- 6928 Mar, [facility] [address] [facility] [id number], [place] [address]- 9135 Feb, COPD (chronic obstructive pulmonary disease) J44.9 and Back pain M54.9 [facility] [address] [facility] [id number], [place] [address]- 8284 Feb, [facility] [address] [facility] [id number] [place] [address] 90795- 0361 Feb, [facility] [address] [facility] [id number] [place] [address] 62693- 4156 Feb, [facility] [address] [facility] [id number] [place] [address] 95480- 9444 Feb, [facility] [id number] [place] [address] 23103- 5684 Feb, [facility] [address] [id number] [place] [address] 74824- 0472 Feb, [facility] [id number] [place] [address] 54873- 5316 Feb, [facility] [id number] [place] [address] 62691- 0947 Feb, [facility] [id number] [place] [address] 84073- 2273 Feb, Diabetes E11.9 ; Back pain M54.9 and COPD (chronic obstructive pulmonary disease) J44.9 [facility] [address] [facility] [id number], [place] [address]- 3346 Jan, [facility] [id number] [place] [address] 30904- 5296 Jan, Major depression, recurrent F33.9 and Generalized anxiety disorder F41.1 [facility] [id number], [place] [address]- 5972 Jan, Chronic pain G89.29 [facility] [id number], [place] [address]- 8447 Jan, [facility] [id number] [place] [address] 26927- 8522 Jan, [facility] [id number] [place] [address] 52116- 2062 Jan, [facility] [id number] [place] [address] 91258- 8321 Jan, [facility] [id number] [place] [address] 51789- 8668 Jan, Nicotine dependence F17.200 [facility] [address] [id number] [place] [address] 92293- 7089 Jan, Nicotine dependence F17.200 and Back pain M54.9 [facility] [id number] [place] [address] 72165- 8411 Jan, [facility] [id number] [place] [address] 14386- 9782 28 Dec, 2014 [facility] [id number] [place] [address] 10578- 4835 25 Sep, 2014 Anxiety, generalized 300.02 and Major depression, recurrent 296.30 [facility] [id number] [place] [address] 88995- 9337 24 Sep, 2014 [facility] [id number] [place] [address] 97370- 2540 21 Sep, 2014 [facility] [id number] [place] [address] 97057- 2542 17 Sep, 2014 [facility] [id number] [place] [address] 94372- 2071 15 Sep, 2014 [facility] [id number] [place] [address] 46409- 9410 14 Sep, 2014 [facility] [id number] [place] [address] 58376- 9702 Dec, [facility] [address], [place] [address]- 0682 Dec, [facility] [id number] [place] [address] 85000- 4370 Dec, Skin tear 879.8 [facility] [id number] [place] [address] 07571- 5732 Dec, Routine gynecological examination V72.31 ; Breast cancer screening V76.10 and Family history of breast cancer in first degree relative V16.3 [facility] [id number] [place] [address] 20917- 7935 Dec, [facility] [id number] [place] [address] 50024- 2367 Dec, [facility] [id number] [place] [address] 73452- 4367 Nov, [facility] [id number] [place] [address] 19730- 9793 Nov, [facility] [id number] [place] [address] 88433- 6867 Nov, Poor balance 781.99 and Vascular dementia, uncomplicated 290.40 [facility] [id number] [place] [address] 40739- 8514 Nov, [facility] [id number] [place] [address] 08648- 1214 Nov, Major depression, recurrent 296.30 and Anxiety, generalized 300.02 [facility] [id number] [place] [address] 45835- 1290 Nov, [facility] [id number] [place] [address] 39231- 6498 Nov, [facility] [id number] [place] [address] 68170- 2295 Nov, [facility] [id number] [place] [address] 19955- 3196 Nov, [facility] [address], [place] [address]- 0184 Nov, Vascular dementia, uncomplicated 290.40 and Lumbago 724.2 [facility] [address], [place] [address]- 1254 Nov, [facility] [id number] [place] [address] 39467- 2161 Nov, [facility] [address], [place] [address]- 4960 Nov, [facility] [id number] [place] [address] 69742- 0750 Oct, [facility] [address], [place] [address]- 6823 Oct, [facility] [id number] [address]- 2230 Oct, [facility] [address], [place] [address]- 0082 Oct, COPD (chronic obstructive pulmonary disease) 496 and Hyperlipidemia 272.4 [facility] [address], [place] [address]- 4188 Oct, Major depression, recurrent 296.30 and Anxiety, generalized 300.02 [facility] [address], [place] [address]- 3717 Oct, [facility] [id number] [address]- 4790 Oct, [facility] [address], [place] [address]- 7240 Oct, [facility] [id number], [place] [address]- 8993 Sep, Lumbago 724.2 and Anxiety state, unspecified 300.00 [facility] [id number] [address]- 6069 Sep, [facility] [address], [place] [address]- 4929 Sep, [facility] [address], [place] [address]- 1551 August, [facility] [id number] [place] [address] 743506- 8450 August, Major depression, recurrent 296.30 ; Anxiety, generalized 300.02 and No condition on Pierce II V71.09 [facility] [address], [place] [address]- 5467 August, [facility] [id number], [place] [address]- 6718 August, [facility] [address], [place] [address]- 2238 Jul, [facility] [address], [place] [address]- 1152 Jul, [facility] [address], [place] [address]- 2913 Jul, [facility] [address], [place] [address]- 2759 Jun, [facility] [address], [place] [address]- 8484 Jun, [facility] [address], [place] [address]- 6564 Jun, [facility] [address], [place] [address]- 2261 Jun, [facility] [address]- 2954 Jun, [facility] [address], [place] [address]- 6622 Jun, [facility] [place] [facility] [address] [facility] [id number] [place] [address]- 5804 23 Jun, 2014 [facility] [place] [facility] [address] [id number] [place] [address]- 5017 17 Jun, 2014 [facility] [place] [facility] [address] [id number] [place] [address]- 7356 13 Jun, 2014 [facility] [place] [facility] [address] [id number] [place] [address]- 4097 13 Jun, 2014 [facility] [place] [facility] [address] [id number] [place] [address]- 3539 10 Jun, 2014 [facility] [place] [facility] [address] [id number] [place] [address]- 4886 10 Jun, 2014 [facility] [place] [facility] [address] [id number] [place] [address]- 0916 Jun, 2014 [facility] [place] [facility] [address] [id number] [place] [address]- 4917 Jun, 2014 [facility] [place] [facility] [address] [id number] [place] [address]- 7415 Jun, [facility] [place] [facility] [address] [id number] [place] [address]- 9950 Jun, [facility] [place] [facility] [address] [id number] [place] [address]- 8867 May, 2014 [facility] [place] [facility] [address] [id number] [place] [address]- 6554 May, 2014 [facility] [place] [facility] [address] [id number] [place] [address]- 2098 May, 2014 [facility] [place] [facility] [address] [id number] [place] [address]- 3080 May, 2014 [facility] [place] [facility] [address] [id number] [place] [address]- 3507 May, 2014 [facility] [place] [facility] [address] [id number] [place] [address]- 8240 May, 2014 [facility] [place] [facility] [address] [id number] [place] [address]- 6118 May, 2014 [facility] [place] [facility] [address] [id number] [place] [address]- 4706 May, 2014 [facility] [place] [facility] [address] [id number] [place] [address]- 6166 May, 2014 [facility] [place] [facility] [address] [id number] [place] [address]- 9277 May, 2014 [facility] [place] [facility] [address] [id number] [place] [address]- 0868 May, 2014 [facility] [place] [facility] [address] [id number] [place] [address]- 8541 May, 2014 [facility] [place] [facility] [address] [id number] [place] [address]- 4148 May, 2014 [facility] [place] [facility] [address] [facility] [id number] [place] [address]- 4560 May, [facility] [place] [facility] [address] [id number] [place] [address]- 6113 Apr, [facility] [place] [facility] [address] [facility] [id number] [place] [address]- 7126 Apr, [facility] [place] [facility] [address] [facility] [id number] [place] [address]- 6870 Apr, [facility] [place] [facility] [address] [id number], [place] [address]- 2429 Apr, [facility] [place] [facility] [address] [id number] [place] [address]- 5053 Apr, [facility] [place] [facility] [address] [facility] [id number] [place] [address]- 8397 Apr, [facility] [place] [facility] [address] [facility] [id number], [place] [address]- 3787 Apr, [facility] [place] [facility] [address] [id number] [place] [address]- 3481 Apr, [facility] [place] [facility] [address] [id number] [place] [address]- 2518 Apr, [facility] [place] [facility] [address] [id number] [place] [address]- 9369 Apr, [facility] [place] [facility] [address] [id number] [place] [address] Apr, [facility] [place] [facility] [address] [id number] [place] [address] Apr, [facility] [place] [facility] [address] [id number] [place] [address] Mar, [facility] [place] [facility] [address] [id number] [place] [address] Mar, [facility] [place] [facility] [address] [id number] [place] [address] 30 Mar, 2014 [facility] [place] [facility] [address] [id number] [place] [address] 30 Mar, 2014 [facility] [place] [facility] [address] [id number] [place] [address] 29 Mar, 2014 [facility] [place] [facility] [address] [id number] [place] [address] 29 Mar, 2014 [facility] [place] [facility] [address] [id number] [place] [address] Mar, [facility] [place] [facility] [address] [id number] [place] [address] Mar, [facility] [place] [facility] [address] [id number] [place] [address] 15 Mar, 2014 [facility] [place] [facility] [address] [id number] [place] [address] 15 Mar, 2014 [facility] [place] [facility] [address] [id number] [place] [address] Mar, [facility] [place] [facility] [address] [id number] [place] [address] Mar, [facility] [place] [facility] [address] [id number] [place] [address] Mar, [facility] [place] [facility] [address] [id number] [place] [address]- [address]26 Mar, [facility] [place] [facility] [address] [id number] [place] [address] Mar, [facility] [place] [facility] [address] [id number] [place] [address] Mar, [facility] [place] [facility] [address] [id number] [place] [address]- [address] Mar, [facility] [place] [facility] [address] [id number] [place] [address] Mar, [facility] [place] [facility] [address] [id number] [place] [address] Mar, [facility] [place] [facility] [address] [id number] [place] [address]- [address] Mar, [facility] [place] [facility] [address] [id number] [place] [address] Feb, [facility] [place] [facility] [address] [id number] [place] [address] Feb, [facility] [place] [facility] [address] [id number] [place] [address] Feb, [facility] [place] [facility] [address] [id number] [place] [address] Feb, [facility] [place] [facility] [address] [id number] [place] [address] Feb, [facility] [place] [facility] [address] [id number] [place] [address] Feb, [facility] [place] [facility] [address] [id number] [place] [address] Feb, [facility] [place] [facility] [address] [id number] [place] [address] Feb, [facility] [place] [facility] [address] [id number] [place] [address] Feb, [facility] [place] [facility] [address] [id number] [place] [address] Feb, [facility] [place] [facility] [address] [address] [id number] [place] [address] Feb, [facility] [place] [facility] [address] [id number] [place] [address] 0[address] Feb, [facility] [place] [facility] [address] [id number] [place] [address] 6363 Feb, [facility] [place] [facility] [address] [id number] [place] [address] 7164 Feb, [facility] [place] [facility] [address] [id number] [place] [address] 4473 Feb, [facility] [place] [facility] [address] [id number] [place] [address] 2611 Feb, [facility] [place] [facility] [address] [id number] [place] [address] 4932 Feb, [facility] [place] [facility] [address] [id number] [place] [address] 7788 Jan, [facility] [place] [facility] [address] [id number] [place] [address] 9208 Jan, [facility] [place] [facility] [address] [id number] [place] [address] 7599 Jan, [facility] [place] [facility] [address] [id number] [place] [address] 9578 Jan, [facility] [place] [facility] [address] [id number] [place] [address]- 6513 Jan, [facility] [place] [facility] [address] [id number] [place] [address]- 5642 Jan, [facility] [place] [facility] [address] [id number] [place] [address]- 4902 Jan, [facility] [place] [facility] [address] [id number] [place] [address]- 6719 Jan, [facility] [place] [facility] [address] [id number] [place] [address]- 1056 Jan, [facility] [place] [facility] [address] [id number] [place] [address]- 8955 Jan, [facility] [place] [facility] [address] [id number] [place] [address]- 2465 Jan, [facility] [place] [facility] [address] [id number] [place] [address]- 1875 Dec, [facility] [place] [facility] [address] [id number] [place] [address]- 3548 Dec, [facility] [place] [facility] [address] [id number] [place] [address]- 2105 Nov, [facility] [place] [facility] [address] [id number] [place] [address]- 7785 Nov, [facility] [place] [facility] [address] [id number], [place] [address]- 5969 Nov, [facility] [place] [facility] [address] [id number], [place] [address]- 8637 Nov, [facility] [place] [facility] [address] [id number] [place] [address]- 8462 Nov, [facility] [place] [facility] [address] [id number] [place] [address]- 7796 Nov, [facility] [place] [facility] [address] [id number], [place] [address]- 7156 Nov, [facility] [place] [facility] [address] [id number], [place] [address] 08 Oct, 2013 [facility] [place] [facility] [address] [id number] [place] [address] 6305 Oct, 2013 [facility] [place] [facility] [address] [id number] [place] [address]- 7530 Oct, [facility] [place] [facility] [address] [id number] [place] [address]- 5426 Oct, [facility] [place] [facility] [address] [id number] [place] [address]- 5921 Sep, [facility] [place] [facility] [address] [id number] [place] [address]- 5991 Sep, [facility] [place] [facility] [address] [id number] [place] [address]- 9508 Sep, [facility] [place] [facility] [address] [id number] [place] [address]- 4268 Sep, [facility] [place] [facility] [address] [id number] [place] [address]- 4502 Sep, [facility] [place] [facility] [address] [id number] [place] [address]- 4797 Sep, [facility] [place] [facility] [address] [facility] [id number] [place] [address]- 2828 Sep, [facility] [place] [facility] [address] [id number] [place] [address]- 7191 Sep, [facility] [place] [facility] [address] [id number], [place] [address] 4973 Sep, [facility] [place] [facility] [address] [id number] [place] [address]- 0714 Sep, [facility] [place] [facility] [address] [id number] [place] [address]- 5108 Sep, [facility] [place] [facility] [address] [id number] [place] [address]- 9036 Sep, [facility] [place] [facility] [address] [id number] [place] [address]- 4408 Sep, [facility] [place] [facility] [address] [id number] [place] [address] Sep, [facility] [place] [facility] [address] [id number] [place] [address]- 4294 August, [facility] [place] [facility] [address] [id number] [place] [address] August, [facility] [place] [facility] [address] [id number] [place] [address]- 3301 August, [facility] [place] [facility] [address] [id number] [place] [address]- 0216 August, [facility] [place] [facility] [address] [id number] [place] [address]- 0870 August, [facility] [place] [facility] [address] [id number] [place] [address]- 5955 August, [facility] [place] [facility] [address] [id number] [place] [address]- 3605 August, [facility] [place] [facility] [address] [id number] [place] [address]- 8915 August, [facility] [place] [facility] [address] [id number] [place] [address]- 2998 August, [facility] [place] [facility] [address] [id number] [place] [address]- 1516 August, [facility] [place] [facility] [address] [id number] [place] [address]- 5033 August, [facility] [place] [facility] [address] [id number] [place] [address] August, [facility] [place] [facility] [address] [id number] [place] [address]- 9316 August, [facility] [place] [facility] [address] [id number] [place] [address]- 9182 August, [facility] [place] [facility] [address] [id number] [place] [address]- 2653 August, [facility] [place] [facility] [address] [id number] [place] [address]- 6735 August, [facility] [place] [facility] [address] [id number] [place] [address]- 7316 August, [facility] [place] [facility] [address] [id number] [place] [address]- 9740 August, [facility] [place] [facility] [address] [id number] [place] [address]- 2577 August, [facility] [place] [facility] [address] [id number] [place] [address]- 5739 Jul, [facility] [place] [facility] [address] [id number] [place] [address]- 3479 Jul, [facility] [place] [facility] [address] [id number] [place] [address]- 6560 Jul, [facility] [place] [facility] [address] [id number] [place] [address]- 9515 Jul, [facility] [place] [facility] [address] [id number] [place] [address]- 4219 Jun, [facility] [place] [facility] [address] [id number] [place] [address]- 4904 Jun, [facility] [place] [facility] [address] [id number] [place] [address]- 5709 Jun, [facility] [place] [facility] [address] [id number] [place] [address]- 0439 Jun, [facility] [place] [facility] [address] [id number] [place] [address]- 2795 Jun, [facility] [place] [facility] [address] [id number] [place] [address]- 8085 Jun, [facility] [place] [facility] [address] [id number] [place] [address]- 6109 14 Jun, 2013 [facility] [place] [facility] [address] [id number] [place] [address]- 0095 14 Jun, 2013 [facility] [place] [facility] [address] [id number] [place] [address]- 8884 06 Jun, 2013 [facility] [place] [facility] [address] [id number] [place] [address]- 6401 Jun, [facility] [place] [facility] [address] [id number] [place] [address]- 8724 May, [facility] [place] [facility] [address] [id number] [place] [address]- 4961 May, [facility] [place] [facility] [address] [facility] [id number] [place] [address]- 0227 May, [facility] [place] [facility] [address] [facility] [id number] [place] [address]- 0957 May, [facility] [place] [facility] [address] [id number] [place] [address]- 8201 May, [facility] [place] [facility] [address] [facility] [id number] [place] [address]- 9039 May, [facility] [place] [facility] [address] [facility] [id number] [place] [address]- 1464 20 May, 2013 [facility] [place] [facility] [address] [facility] [id number] [place] [address]- 8012 May, [facility] [place] [facility] [address] [id number] [place] [address]- 6355 May, [facility] [place] [facility] [address] [id number] [place] [address]- 6952 May, [facility] [place] [facility] [address] [facility] [id number] [place] [address]- 1528 18 May, 2013 [facility] [place] [facility] [address] [facility] [id number] [place] [address]- 9716 17 May, 2013 [facility] [address] [id number] [place] [address]- 3814 May, [facility] [place] [facility] [address] [id number] [place] [address]- 5356 May, [facility] [place] [facility] [address] [id number] [place] May, [facility] [place] [facility] [address] [id number] [place] [address]- 8965 May, [facility] [place] [facility] [address] [id number] [place] [address]- 3551 May, [facility] [place] [facility] [address] [id number] [place] [address]- 7581 Apr, [facility] [place] [facility] [address] [id number] [place] [address]- 7136 Apr, [facility] [place] [facility] [address] [id number] [place] [address]- 4875 Apr, [facility] [place] [facility] [address] [id number] [place] [address]- 2596 Apr, [facility] [place] [facility] [address] [facility] [id number] [place] [address]- 6370 Apr, [facility] [place] [facility] [address] [id number] [place] [address]- 7965 Apr, [facility] [place] [facility] [address] [id number] [place] [address]- 1963 Apr, [facility] [place] [facility] [address] [id number] [place] [address]- 1791 Mar, [facility] [place] [facility] [address] [id number] [place] [address]- 3196 Mar, [facility] [place] [facility] [address] [id number] [place] [address]- 0036 Mar, [facility] [place] [facility] [address] [id number] [place] [address]- 7651 30 Mar, 2013 [facility] [place] [facility] [address] [id number] [place] [address]- 7966 Mar, [facility] [place] [facility] [address] [id number] [place] [address] 2546 Mar, [facility] [place] [facility] [address] [id number] [place] [address]- 0576 Mar, [facility] [place] [facility] [address] [id number] [place] [address]- 8766 Mar, [facility] [place] [facility] [address] [id number] [place] [address]- 5666 Mar, [facility] [place] [facility] [address] [id number] [place] [address]- 7582 Mar, [facility] [place] [facility] [address] [id number] [place] [address]- 9586 Mar, [facility] [place] [facility] [address] [id number] [place] [address]- 4886 Feb, [facility] [place] [facility] [address] [id number] [place] [address]- 4569 Feb, [facility] [place] [facility] [address] [id number] [place] [address]- 0976 Feb, [facility] [place] [facility] [address] [id number] [place] [address]- 8993 20 Feb, 2013 [facility] [place] [facility] [address] [id number] [place] [address] 254 Feb, [facility] [place] [facility] [address] [id number] [place] [address] 2546 19 Feb, 2013 [facility] [place] [facility] [address] [id number] [place] [address] 2541 15 Feb, 2013 [facility] [place] [facility] [address] [id number] [place] [address]- 8853 14 Feb, 2013 [facility] [place] [facility] [address] [id number] [place] [address]- 6114 14 Feb, 2013 [facility] [place] [facility] [address] [id number], [place] [address]- 6455 Feb, [facility] [place] [facility] [address] [id number] [place] [address]- 9227 Feb, [facility] [place] [facility] [address] [id number], [place] [address]- 9556 Feb, [facility] [place] [facility] [address] [id number] [place] [address]- 0494 Feb, [facility] [place] [facility] [address] [id number], [place] [address]- 8199 Feb, [facility] [place] [facility] [address] [id number], [place] [address]- 8683 Feb, [facility] [place] [facility] [address] [id number], [place] [address]- 4416 Feb, [facility] [place] [facility] [address] [id number], [place] [address]- 9115 Jan, [facility] [place] [facility] [address] [id number], [place] [address]- 6913 24 Jan, 2013 [facility] [place] [facility] [address] [id number], [place] [address]- 7115 24 Jan, 2013 [facility] [place] [facility] [address] [id number], [place] [address]- 4531 24 Jan, 2013 [facility] [place] [facility] [address] [id number], [place] [address]- 1765 Jan, [facility] [place] [facility] [address] [id number], [place] [address]- 3065 Jan, [facility] [place] [facility] [address] [id number], [place] [address]- 1347 Jan, [facility] [place] [facility] [address] [id number] [place] [address]- 5006 10 Jan, 2013 [facility] [place] [facility] [address] [id number] [place] [address]- 8544 10 Jan, 2013 [facility] [place] [facility] [address] [id number] [place] [address]- 2546 27 Dec, 2012 [facility] [place] [facility] [address] [id number] [place] [address] 254 20 Dec, 2012 [facility] [place] [facility] [address] [id number] [place] [address] 2541 19 Dec, 2012 [facility] [place] [facility] [address] [id number] [place] [address]- 6992 10 Dec, 2012 [facility] [place] [facility] [address] [id number] [place] [address]- 7181 04 Dec, 2012 [facility] [place] [facility] [address] [id number] [place] [address]- 9398 Dec, [facility] [place] [facility] [address] [id number] [place] [address]- 8739 Nov, [facility] [place] [facility] [address] [id number] [place] [address] 2549 Nov, [facility] [place] [facility] [address] [id number] [place] [address]- 2313 Nov, [facility] [place] [facility] [address] [id number] [place] [address] 2542 Nov, [facility] [place] [facility] [address] [id number] [place] [address]- 2545 Nov, [facility] [place] [facility] [address] [id number] [place] [address] 254 Nov, [facility] [place] [facility] [address] [id number] [place] [address]- 2545 Nov, [facility] [place] [facility] [address] [id number] [place] [address]- 2544 Nov, [facility] [place] [facility] [address] [id number] [place] [address]- 0842 Nov, [facility] [place] [facility] [address] [id number] [place] [address]- 9899 Nov, [facility] [place] [facility] [address] [id number] [place] [address]- 4649 Oct, [facility] [place] [facility] [address] [id number] [place] [address]- 5018 Oct, [facility] [address] [id number] [place] [address]- 5263 Oct, [facility] [place] [facility] [address] [id number] [place] [address]- 0648 Oct, [facility] [place] [facility] [address] [id number] [place] [address]- 5755 Oct, [facility] [place] [facility] [address] [id number] [place] [address]- 7038 Oct, [facility] [place] [facility] [address] [id number] [place] [address]- 2863 Oct, [facility] [place] [facility] [address] [id number] [place] [address]- 9436 Oct, [facility] [place] [facility] [address] [id number] [place] [address]- 1731 Sep, [facility] [place] [facility] [address] [id number] [place] [address]- 5881 Sep, [facility] [place] [facility] [address] [id number] [place] [address]- 6355 Sep, [facility] [place] [facility] [address] [id number] [place] [address]- 9687 Sep, [facility] [place] [facility] [address] [id number] [place] [address]- 1631 Sep, [facility] [place] [facility] [address] [id number] [place] [address]- 7249 Sep, [facility] [address] [id number] [place] [address]- 2713 Sep, [facility] [address] [id number] [place] [address]- 7926 Sep, [facility] [address] [id number] [place] [address]- 6396 August, [facility] [address] [id number] [place] [address]- 1267 August, [facility] [address] [id number] [place] [address]- 1150 August, [facility] [address] [id number] [place] [address]- 7540 August, [facility] [address] [id number] [place] [address]- 3355 August, [facility] [address] [id number] [place] [address]- 2495 Jul, [facility] [address] [id number] [place] [address]- 5382 Jul, [facility] [address] [id number] [place] [address]- 7274 Jul, [facility] [address] [id number] [place] [address]- 8929 Jul, [facility] [place] [facility] [address] [id number] [place] [address]- 2670 Jul, [facility] [place] [facility] [address] [id number] [place] [address]- 5337 Jun, [facility] [place] [facility] [address] [id number] [place] 8167 Jun, [facility] [place] [facility] [address] [id number] [place] [address]234 15 Jun, 2012 [facility] [place] [facility] [address] [id number] [place] [address]- 1066 14 Jun, [address] [facility] [address] [id number] [place] [address] Jun, [facility] [place] [facility] [address] [id number] [place] [address] 08 Jun, 2012 [facility] [address] [id number] [place] [address] 08 Jun, 2012 [facility] [address] [id number] [place] [address] Jun, [facility] [address] [id number] [place] [address] Jun, [facility] [address] [id number] [place] [address] May, [facility] [address] [id number] [place] [address] May, [facility] [address] [id number] [place] [address] May, [facility] [address] [id number] [place] [address] May, [facility] [address] [id number] [place] [address]60 15 Apr, 2012 [facility] [address] [id number] [place] [address] Apr, [facility] [address] [id number] [place] [address] Apr, [facility] [place] [facility] [address] [id number] [place] [address] Apr, [facility] [place] [facility] [address] [id number] [place] [address] 04 Apr, 2012 [facility] [place] [facility] [address] [id number] [place] [address] Apr, [facility] [address] [id number] [place] [address] Apr, [facility] [address] [id number] [place] [address] Mar, [facility] [address] [place] [id number] Mar, [facility] [address] [id number] [place] [address]268 Mar, [facility] [address] [id number] [place] [address] Mar, [facility] [address] [id number] [place] [address] Mar, [facility] [address] [id number] [place] [address] Mar, [facility] [address] [id number] [place] [address] Mar, [facility] [address] [id number] [place] [address] 8933 Mar, [facility] [address] [id number] [place] [address] Mar, [facility] [address] [id number] [place] [address] Mar, [facility] [address] [id number], [place] [address] Mar, [facility] [address] [id number] [place] [address] Mar, [facility] [address] [id number] [place] [address] 9570 Mar, [facility] [address] [id number] [place] [address] 36[address] Mar, [facility] [address] [id number], [place] [address] Mar, [facility] [place] [facility] [address] [id number] [place] [address] 228[address] Mar, [facility] [place] [facility] [address] [id number] [place] [address] Mar, [facility] [place] [facility] [address] [id number] [place] [address] Feb, [facility] [place] [facility] [address] [id number] [place] [address] Feb, [facility] [place] [facility] [address] [id number] [place] [address] Feb, [facility] [place] [facility] [address] [id number] [place] [address] 1753 Feb, [facility] [place] [facility] [address] [id number] [place] [address] 45[address] Feb, [facility] [place] [facility] [address] [id number] [place] [address] 8969 Feb, [facility] [place] [facility] [address] [id number] [place] [address] Feb, [facility] [place] [facility] [address] [id number] [place] [address] 9365 Feb, [facility] [place] [facility] [address] [id number], [place] [address] Feb, [facility] [place] [facility] [address] [id number], [place] [address]60 16 Feb, 2012 [facility] [place] [facility] [address] [id number], [place] [address] 16[address] Feb, [facility] [place] [facility] [address] [id number] [place] [address] 6027 Feb, [facility] [place] [facility] [address] [id number] [place] [address]- 1280 Feb, [facility] [place] [facility] [address] [id number] [place] [address]- 1516 Feb, [facility] [place] [facility] [address] [id number] [place] [address] 4[address] Feb, [facility] [place] [facility] [address] [id number] [place] [address] 1842 Feb, [facility] [place] [facility] [address] [id number] [place] [address] 8960 Jan, [facility] [place] [facility] [address] [id number] [place] [address] 37[address] Jan, [facility] [place] [facility] [address] [id number] [place] [address] Jan, [facility] [place] [facility] [address] [id number] [place] [address] 5976 Jan, [facility] [place] [facility] [address] [id number] [place] [address]- 8929 Jan, [facility] [place] [facility] [address] [id number] [place] [address]- 7468 Jan, [facility] [place] [facility] [address] [id number] [place] [address]- [address] Jan, [facility] [place] [facility] [address] [id number] [place] [address] 8096 Jan, [facility] [place] [facility] [address] [id number] [place] [address]- 5245 Jan, [facility] [place] [facility] [address] [id number] [place] [address] 8037 Jan, [facility] [place] [facility] [address] [id number] [place] [address] 9641 Jan, [facility] [place] [facility] [address] [id number] [place] [address] Jan, [facility] [place] [facility] [address] [id number] [place] [address]- 6356 Jan, [facility] [place] [facility] [address] [id number] [place] [address]- 7448 11 Jan, 2012 [facility] [place] [facility] [address] [id number] [place] [address]- 8219 08 Jan, 2012 [facility] [place] [facility] [address] [id number] [place] [address]- 7537 05 Jan, 2012 [facility] [place] [facility] [address] [id number] [place] [address]- 4[address] 04 Jan, 2012 [facility] [place] [facility] [address] [id number] [place] [address]- 4064 21 Dec, 2011 [facility] [place] [facility] [address] [id number] [place] [address] 20 Dec, 2011 [facility] [place] [facility] [address] [id number] [place] [address] 18 Dec, 2011 [facility] [place] [facility] [address] [id number] [place] [address] 18 Dec, 2011 [facility] [place] [facility] [address] [id number] [place] [address] 10 Dec, 2011 [facility] [place] [facility] [address] [id number] [place] [address] 10 Dec, 2011 [facility] [place] [facility] [address] [id number] [place] [address] 9066 10 Dec, 2011 [facility] [place] [facility] [address] [id number], [place] [address] 07 Dec, 2011 [facility] [place] [facility] [address] [id number] [place] [address] 30 Nov, 2011 [facility] [place] [facility] [address] [id number] [place] [address] Nov, [facility] [place] [facility] [address] [id number] [place] [address] 24 Nov, 2011 [facility] [place] [facility] [address] [id number] [place] [address] Nov, [facility] [place] [facility] [address] [id number] [place] [address] 1496 Nov, [facility] [place] [facility] [address] [id number] [place] [address]876 Nov, [facility] [place] [facility] [address] [id number] [place] [address] 6[address] Oct, [facility] [place] [facility] [address] [id number] [place] [address] 79[address] Oct, [facility] [place] [facility] [address] [id number] [place] [address] Oct, [facility] [place] [facility] [address] [id number] [place] [address] Oct, [facility] [place] [facility] [address] [id number] [place] [address] 1518 Oct, [facility] [place] [facility] [address] [id number] [place] [address] Oct, [facility] [place] [facility] [address] [id number] [place] [address] 17[address] Oct, [facility] [place] [facility] [address] [id number] [place] [address] 3928 Sep, [facility] [place] [facility] [address] [id number] [place] [address] 09[address] Sep, [facility] [place] [facility] [address] [id number] [place] [address] 2542 Sep, [facility] [place] [facility] [address] [id number] [place] [address] 3840 Sep, [facility] [place] [facility] [address] [id number] [place] [address] 150[address] Sep, [facility] [place] [facility] [address] [id number] [place] [address] 4945 15 Sep, 2011 [facility] [place] [facility] [address] [id number] [place] [address]44 Sep, [facility] [place] [facility] [address] [id number] [place] [address] 45[address] Sep, [facility] [place] [facility] [address] [id number] [place] [address] 48[address] Sep, [facility] [place] [facility] [address] [id number] [place] [address] 0370 Sep, [facility] [place] [facility] [address] [id number] [place] [address] August, [facility] [place] [facility] [address] [id number] [place] [address] August, [facility] [place] [facility] [address] [id number] [place] [address] August, [facility] [place] [facility] [address] [id number] [place] [address] 9[address] August, [facility] [place] [facility] [address] [id number] [place] [address] August, [facility] [place] [facility] [address] [id number] [place] [address] Jul, [facility] [place] [facility] [address] [id number] [place] [address] Jul, [facility] [place] [facility] [address] [id number] [place] [address] Jul, [facility] [place] [facility] [address] [id number] [place] [address] 9546 17 Jul, 2011 [facility] [place] [facility] [address] [id number] [place] [address] 1023 Jul, [facility] [place] [facility] [address] [id number] [place] [address] 0253 Jul, [facility] [place] [facility] [address] [id number] [place] [address] 27[address] Jul, [facility] [address] [id number] [place] [address] Jun, [facility] [place] [facility] [address] [id number] [place] [address] Jun, [facility] [place] [facility] [address] [facility] [id number] [place] [address]191 Jun, [facility] [place] [facility] [address] [id number] [place] [address] 3344 Jun, [facility] [place] [facility] [address] [id number] [place] [address] 8822 Jun, [facility] [place] [facility] [address] [facility] [id number] [place] [address] 0272 May, [facility] [place] [facility] [address] [id number] [place] [address] 6101 May, [facility] [place] [facility] [address] [id number] [place] [address] 1168 May, [facility] [place] [facility] [address] [id number] [place] [address] 3380 May, [facility] [place] [facility] [address] [facility] [id number] [place] [address]204 May, [facility] [place] [facility] [address] [facility] [id number] [place] [address] 2501 May, [facility] [place] [facility] [address] [id number] [place] [address] 8903 Apr, [facility] [place] [facility] [address] [id number] [place] [address] 9237 Mar, [facility] [place] [facility] [address] [id number] [place] [address] 7148 Feb, [facility] [place] [facility] [address] [facility] [id number] [place] [address] 7044 Feb, [facility] [place] [facility] [address] [id number] [place] [address] 6563 Feb, [facility] [place] [facility] [address] [id number] [place] [address] 4001 Feb, [facility] [place] [facility] [address] [id number] [place] [address] 5863 Jan, [facility] [place] [facility] [address] [id number] [place] [address] 6644 Jan, [facility] [place] [facility] [address] [id number] [place] [address]- 0632 Jan, [facility] [place] [facility] [address] [id number] [place] [address]- 5882 24 Jan, 2011 [facility] [place] [facility] [address] [id number] [place] [address]- 6562 14 Jan, 2011 [facility] [place] [facility] [address] [id number] [place] [address]- 0868 Dec, [facility] [place] [facility] [address] [id number] [place] [address]- 7383 Oct, [facility] [place] [facility] [address] [id number] [place] [address]- 6724 August, [facility] [place] [facility] [address] [id number] [place] [address] 1574 29 Mar, 2010 [facility] [place] [facility] [address] [id number] [place] [address]- 0415 27 Mar, 2010 [facility] [place] [facility] [address] [id number] [place] [address] 2548 16 Mar, 2010 [facility] [place] [facility] [address] [id number] [place] [address] 2546 15 Mar, 2010 [facility] [place] [facility] [address] [id number] [place] [address] 2547 15 Mar, 2010 [facility] [place] [facility] [address] [id number] [place] [address] 0328 08 Mar, 2010 [facility] [place] [facility] [address] [id number] [place] [address] 03 Mar, 2010 [facility] [place] [facility] [address] [id number] [place] [address]- 0023 24 Feb, 2010 [facility] [place] [facility] [address] [facility] [id number] [place] [address] 24 Feb, 2010 [facility] [place] [facility] [address] [id number] [place] [address]- 3684 15 Feb, 2010 [facility] [place] [facility] [address] [id number] [place] [address]- 7346 Jan, [facility] [place] [facility] [address] [id number] [place] [address]- 4629 Jan, [facility] [place] [facility] [address] [id number] [place] [address]- 4874 Jan, [facility] [place] [facility] [address] [id number], [place] [address] 7309 Nov, [facility] [place] [facility] [address] [id number], [place] [address] 3963 Sep, [facility] [place] [facility] [address] [facility] [id number], [place] [address] 6[address] August, [facility] [place] [facility] [address] [id number], [place] [address] 2767 30 Mar, 2009 [facility] [place] [facility] [address] [id number], [place] [address] 9769 07 Mar, 2009 [facility] [place] [facility] [address] [id number], [place] [address] 17 Feb, 2009 [facility] [place] [facility] [address] [id number], [place] [address]- 8234 10 Feb, 2009 [facility] [place] [facility] [address] [facility] [id number], [place] [address]- 8428 10 Feb, 2009 [facility] [place] [facility] [address], [place] [address] 8632 10 Feb, 2009 [facility] [address], [place] [address] Feb, [facility] [address], [place] [address] 60[address] Jan, [facility] [address], [place] [address] 3262 Jan, [facility] [address], [place] [address] Jan, [facility] [id number] [place] [address]- 9048 Jan, [facility] [id number] [place] [address]- 4312 Nov, [facility] [id number] [place] [address]- 7426 Sep, [facility] [address], [place] [address] August, [facility] [address], [place] [address] 67[address] Jul, [facility] [address] [id number], [place] [address] May, IMMUNIZATIONS No Known Immunizations SOCIAL HISTORY Never Assessed REASON FOR VISIT medication request PLAN OF CARE VITAL SIGNS MEDICATIONS [...]
--- NOTE | 2017-10-09 18:10 | ED Integumentary General ---
General Chief Complaint: Skin/Wound Problems Stated Complaint: SWELLING ON FEET/ANKLES/L HAND Nursing Triage Note: pt presents to ed with complaints of l hand and wrist pain/swelling since this am, pt had l elbow sx on 09/11/17. PT also reports biltaeral feet swelling. Source: patient Exam Limitations: no limitations History of Present Illness Date Seen by Provider: Oct 09, 2017 Time Seen by Provider: 18:08 Initial Comments tto ER per private vehicle with reports of swelling to the left hand since this morning,swelling to the lower extremities since this morning. She has had surgery in July for a skin cancer to the dorsal aspect of the left proximal forearm. This has a wound that has been wrapped with Kerlix since then as well as packing into the wound. Timing/Duration: just prior to arrival Severity: moderate Associated Symptoms: denies symptoms Allergies and Home Medications Allergies Coded Allergies: bacitracin (Verified Allergy, Intermediate, "I BREAK OUT IN A RASH ALL OVER.", 08/26/16) neomycin (Verified Allergy, Intermediate, "I BREAK OUT IN A RASH ALL OVER. ", 08/26/16) polymyxin B (Verified Allergy, Intermediate, "I BREAK OUT IN A RASH ALL OVER.", 08/26/16) ibuprofen (Verified Allergy, Unknown, 07/04/17) Home Medications Albuterol Sulfate 2.5 Mg/3 Ml Vial.neb, 2.5 MG NEB Q6H PRN for SHORTNESS OF BREATH, (Reported) Albuterol Sulfate 1 Puff Puff, 2 PUFF IH Q4H PRN for SHORTNESS OF BREATH, ( Reported) 1 PUFF = 90 MCG Alendronate Sodium 70 Mg Tablet, 70 MG PO Sa, (Reported) Apixaban 5 Mg Tablet, 5 MG PO BID, (Reported) Aripiprazole 10 Mg Tablet, 10 MG PO DAILY, (Reported) Baclofen 20 Mg Tablet, 20 MG PO TID, (Reported) Budesonide/Formoterol Fumarate 10.2 Gm Hfa.aer.ad, 2 PUFF IH BID, (Reported) Buspirone HCl 5 Mg Tablet, 5 MG PO Q8H PRN for ANXIETY, (Reported) Cetirizine HCl 10 Mg Tablet, 10 MG PO DAILY, (Reported) Clonazepam 1 Mg Tablet, 1 MG PO HS, (Reported) Colesevelam HCl 625 Mg Tablet, 1,250 MG PO BID, (Reported) TAKES 2 (625MG) TABLETS Diltiazem HCl 240 Mg Cap.er.deg, 240 MG PO DAILY, (Reported) Diphenoxylate HCl/Atropine 1 Each Tablet, 2 TAB PO QID PRN for DIARRHEA, ( Reported) Donepezil HCl 10 Mg Tablet, 10 MG PO HS, (Reported) Ergocalciferol (Vitamin D2) 50,000 Unit Capsule, 50,000 UNIT PO Escalera, (Reported) Estradiol 42.5 Gm Cream.appl, VG Fr, (Reported) Fluticasone Propionate 16 Gm [place].susp, 2 SPRAYS NS BID, (Reported) Gabapentin 600 Mg Tablet, 600 MG PO TID, (Reported) Hydrocodone Bit/Acetaminophen 1 Tab Tab, 1 TAB PO Q4H PRN Prescribed by: IVAN TAVERA on 09/11/17 1136 Lamotrigine 25 Mg Tablet, 75 MG PO HS, (Reported) TAKES 3 (25MG) TABLETS Magnesium Oxide 400 Mg Tablet, 400 MG PO DAILY, (Reported) Memantine HCl 10 Mg Tablet, 10 MG PO HS, (Reported) Metoprolol Succinate 25 Mg Tab.er.24h, 25 MG PO DAILY, (Reported) Mirtazapine 45 Mg Tablet, 45 MG PO HS, (Reported) Montelukast Sodium 10 Mg Tablet, 10 MG PO HS, (Reported) Mupirocin 22 Gm Oint...g., TP BID, (Reported) Mv,Ca,Min/Iron Fum/FA/Vit K 1 Each Tablet, 1 TAB PO DAILY, (Reported) Nitroglycerin 0.4 Mg Tab.subl, 0.4 MG PO UD PRN for CHEST PAIN, (Reported) Omeprazole 40 Mg Capsule.dr, 40 MG PO DAILY, (Reported) Ondansetron 4 Mg Tab.rapdis, 4 MG SL Q4H PRN for NAUSEA/VOMITING-1ST LINE, ( Reported) Oxybutynin Chloride 10 Mg Tab.er.24, 10 MG PO DAILY, (Reported) Pantoprazole Sodium 40 Mg Tablet.dr, 40 MG PO BID, (Reported) Primidone 250 Mg Tablet, 250 MG PO TID, (Reported) Ranitidine HCl 150 Mg Tablet, 150 MG PO BID, (Reported) Rifaximin 550 Mg Tablet, 550 MG PO TID, (Reported) Ropinirole HCl 2 Mg Tablet, 2 MG PO HS, (Reported) Sertraline HCl 100 Mg Tablet, 100 MG PO DAILY, (Reported) Simvastatin 20 Mg Tablet, 20 MG PO HS, (Reported) Sumatriptan Succinate 100 Mg Tablet, 100 MG PO UD PRN for MIGRAINE, (Reported) Tiotropium [place] 1 Inh Aerp, 1 CAP IH HS, (Reported) Trazodone HCl 150 Mg Tablet, 150 MG PO HS, (Reported) Patient Home Medication List Home Medication List Reviewed: Yes Constitutional: see HPI EENTM: see HPI Respiratory: no symptoms reported Cardiovascular: no symptoms reported Genitourinary: no symptoms reported Musculoskeletal: no symptoms reported Skin: see HPI Psychiatric/Neurological: No Symptoms Reported Endocrine: No Symptoms Reported Past Ganvdde-Xbalnx-Nsdspw Hx Patient Social History Alcohol Use: Denies Use Recreational Drug Use: No Type Used: Cigarettes Former Smoker, Quit: Dec 05, 2016 2nd Hand Smoke Exposure: Yes Recent Foreign Travel: No Contact w/Someone Who Travel: No Recent Infectious Disease Expo: No Recent Hopitalizations: No Physical Abuse: No Sexual Abuse: No Mistreated: No Fear: No Immunizations Up To Date Tetanus Booster (TDap): Unknown PED Vaccines UTD: No Date of Pneumonia Vaccine: Nov 11, 2016 Date of Influenza Vaccine: Dec 06, 2016 Seasonal Allergies Seasonal Allergies: Yes Past Medical History Surgeries: Yes (NECK, HIATAL HERNIA, CARDIAC ABLATION, BILAT ELBOW, BILAT CTR, BLADDER SLIN) Abdominal, Appendectomy, Bladder Surgery, Cardiac, Gallbladder, Joint Replacement, Orthopedic, Pancreatic, Tubal Ligation Respiratory: Yes (OXYGEN AT NIGHT AND PRN ) Asthma, COPD, Emphysema Cardiac: Yes (CARDIAC ABLATION 2015) Atrial Fibrillation, Coronary Artery Disease, High Cholesterol, Hypertension, Irregular Heartbeat, Palpitations, Peripheral Vascular Neurological: Yes (PARESTHESIAS OF BILAT LOWER EXT DUE TO FORAMINAL STENOSIS) Dementia, Headaches /Migraines, Neuropathy 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 Disorders: No 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 Disorders: Denies 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 Sexually Transmitted Disease: No HIV/AIDS: No Genitourinary: Yes (OVERACTIVE BLADDER) UTI-Chronic Gastrointestinal: Yes (FREQ DIARRHEA, DYSPHAGIA) Gastroesophageal Reflux, Celaya's Esophagus, Hiatal Hernia, Ulcer Musculoskeletal: Yes (CHRONIC NECK AND BACK PAIN, CHRONIC HIP PAIN) Degenerate Disk Disease, Osteoporosis, Arthritis, Fibromyalgia, Chronic Back Pain Endocrine: Yes (DIET CONTROLLED NIDDM--NO LONGER ON MEDICATIONS; THYROID NODULES) Hypothyroidsim, Diabetes, Non-Insulin dep HEENT: Yes (DENTURES) Dysphagia, Glaucoma Loss of Vision: Bilateral Hearing Impairment: Hard of Hearing Cancer: No Psychosocial: Yes (ATTEMPTED SUICIDE > 26 YRS AGO) Anxiety, Suicide Attempts, Depression Nursing Suicide Risk Score: 0 Integumentary: Yes Psoriasis Blood Disorders: No Adverse Reaction/Blood Tranf: No Family Medical History Cardiovascular disease G8 BROTHER (TRIPLE BYPASS) Diabetes mellitus 19 MOTHER FH: COPD (chronic obstructive pulmonary disease) 19 MOTHER FH: breast cancer 19 MOTHER FHx: brain cancer 19 FATHER No Pertinent Family Hx Physical Exam Vital Signs Vital Signs - First Documented 10/09/17 16:50 Temp 99.0 Pulse 84 Resp 20 B/P (MAP) 120/72 (88) Pulse Ox 95 O2 Delivery Nasal Cannula O2 Flow Rate 2.00 Capillary Refill : Less Than 3 Seconds General Appearance: WD/WN, no apparent distress HEENT: PERRL/EOMI, normal ENT inspection Neck: non-tender, full range of motion Respiratory: no respiratory distress, no accessory muscle use Gastrointestinal: normal bowel sounds, non tender Extremities: normal range of motion, non-tender, other (there is edema of the left upper arm, none noted to the right, trace pitting edema to the feet bilaterally.) Neurologic/Psychiatric: alert, normal mood/affect, oriented x 3 Skin: normal color, warm/dry Skin Problem Character: other (ulcerated wound to the dorsal aspect proximal forearm on the left.) Progress/Results/Core Measures Results/Orders Lab Results Laboratory Tests Test 10/09/17 16:46 Range/Units White Blood Count 6.8 4.3-11.0 10^3/uL Red Blood Count 4.44 4.35-5.85 10^6/uL Hemoglobin 12.3 11.5-16.0 G/DL Hematocrit 38 35-52 % Mean Corpuscular Volume 85 80-99 FL Mean Corpuscular Hemoglobin 28 25-34 PG Mean Corpuscular Hemoglobin Concent 33 32-36 G/DL Red Cell Distribution Width 14.5 10.0-14.5 % Platelet Count 233 130-400 10^3/uL Mean Platelet Volume 10.7 H 7.4-10.4 FL Neutrophils (%) (Auto) 51 42-75 % Lymphocytes (%) (Auto) 34 12-44 % Monocytes (%) (Auto) 12 0-12 % Eosinophils (%) (Auto) 3 0-10 % Basophils (%) (Auto) 0 0-10 % Neutrophils # (Auto) 3.5 1.8-7.8 X 10^3 Lymphocytes # (Auto) 2.3 1.0-4.0 X 10^3 Monocytes # (Auto) 0.8 0.0-1.0 X 10^3 Eosinophils # (Auto) 0.2 0.0-0.3 10^3/uL Basophils # (Auto) 0.0 0.0-0.1 10^3/uL Sodium Level 135 135-145 MMOL/L Potassium Level 3.9 3.6-5.0 MMOL/L Chloride Level 103 98-107 MMOL/L Carbon Dioxide Level 24 21-32 MMOL/L Anion Gap 8 5-14 MMOL/L Blood Urea Nitrogen 11 7-18 MG/DL Creatinine 0.70 0.60-1.30 MG/DL Estimat Glomerular Filtration Rate > 60 BUN/Creatinine Ratio 16 Glucose Level 85 70-105 MG/DL Calcium Level 9.6 8.5-10.1 MG/DL Total Bilirubin 0.4 0.1-1.0 MG/DL Aspartate Amino Transf (AST/SGOT) 14 5-34 U/L Alanine Aminotransferase (ALT/SGPT) 7 0-55 U/L Alkaline Phosphatase 96 40-136 U/L B-Type Natriuretic Peptide 28.2 <100.0 PG/ML Total Protein 6.2 L 6.4-8.2 GM/DL Albumin 3.8 3.2-4.5 GM/DL My Orders Orders - SRAVAN BRUCE APRN Us Venous Lower Ext Lt (10/09/17 18:04) Cbc With Automated Diff (10/09/17 18:04) Comprehensive Metabolic Panel (10/09/17 18:04) BNP (10/09/17 18:04) Us Venous Upper Ext Lt (10/09/17 18:46) Vital Signs/I&O 10/09/17 16:50 Temp 99.0 Pulse 84 Resp 20 B/P (MAP) 120/72 (88) Pulse Ox 95 O2 Delivery Nasal Cannula O2 Flow Rate 2.00 Blood Pressure Mean: 88 Departure Impression Primary Impression: Pedal edema Additional Impression: edema left arm Disposition: 01 HOME, SELF-CARE Condition: Stable Departure-Patient Inst. Decision time for Depature: 19:17 Referrals: [facility] (PCP) Primary Care Physician SENAIT DUNLAP (Family) Primary Care Physician Patient Instructions: Swelling Add. Discharge Instructions: 1. Follow-up with your doctor later this week for recheck. Elevate your feet and your arm on a couple of pillows this evening. I suspect that sure arm is swollen because the wrap was too tight. your labs look great. look great. All discharge instructions reviewed with patient and/or family. Voiced understanding. SRAVAN BRUCE APRN Oct 09, 2017 18:10
[2017-10-09 18:23] LABS: BASOPHILS % (AUTO) 0 % (0-10); EOSINOPHILS # (AUTO) 0.2 10^3/uL (0.0-0.3); EOSINOPHILS % (AUTO) 3 % (0-10); HEMATOCRIT 38 % (35-52); HEMOGLOBIN 12.3 G/DL (11.5-16.0); LYMPHOCYTES # (AUTO) 2.3 X 10^3 (1.0-4.0); LYMPHOCYTES % (AUTO) 34 % (12-44); MEAN CORPUSCULAR HEMOGLOBIN 28 PG (25-34); MEAN CORPUSCULAR HGB CONC 33 G/DL (32-36); MEAN CORPUSCULAR VOLUME 85 FL (80-99); MEAN PLATELET VOLUME 10.7 FL (7.4-10.4); MONOCYTES # (AUTO) 0.8 X 10^3 (0.0-1.0); MONOCYTES % (AUTO) 12 % (0-12); NEUTROPHILS # (AUTO) 3.5 X 10^3 (1.8-7.8); NEUTROPHILS % (AUTO) 51 % (42-75); PLATELET COUNT 233 10^3/uL (130-400); RED BLOOD COUNT 4.44 10^6/uL (4.35-5.85); RED CELL DISTRIBUTION WIDTH 14.5 % (10.0-14.5); WHITE BLOOD COUNT 6.8 10^3/uL (4.3-11.0)
[2017-10-09 18:45] LABS: ALANINE AMINOTRANSFERASE 7 U/L (0-55); ALBUMIN 3.8 GM/DL (3.2-4.5); ALKALINE PHOSPHATASE 96 U/L (40-136); BILIRUBIN,TOTAL 0.4 MG/DL (0.1-1.0); BUN/CREATININE RATIO 16; CALCIUM 9.6 MG/DL (8.5-10.1); CARBON DIOXIDE 24 MMOL/L (21-32); CHLORIDE 103 MMOL/L (98-107); GFR ESTIMATED > 60; GLUCOSE 85 MG/DL (70-105); POTASSIUM 3.9 MMOL/L (3.6-5.0); SODIUM 135 MMOL/L (135-145); TOTAL PROTEIN 6.2 GM/DL (6.4-8.2)
--- NOTE | 2017-10-09 19:20 | Diagnostic Imaging Report ---
EXAMINATION: Left upper extremity venous Doppler, 10/09/2017. TECHNIQUE: Multiple real-time grayscale images were obtained of left upper extremity in various projections. Duplex Doppler and color Doppler images were also obtained. INDICATION: Left arm swelling. FINDINGS: There is normal compressibility and augmentation of the visualized venous structures. No deep vein thrombosis appreciated. IMPRESSION: 1. No evidence for deep vein thrombosis. Dictated by: Dictated on workstation # [id number]
[2017-10-09] MEDS ORDERED: FUROSEMIDE 40 MG (LASIX) TAB PO ONE (19:30)
[2017-10-09 19:34] VITALS: BP 118/73
== END 2017-10-09 19:33 | disposition home or self-care (01) ==
LOC: EDUNIT# 16:30 → ER 16:32
DX: R60.0 Localized edema (principal); J43.9 Emphysema, unspecified; I48.91 Unspecified atrial fibrillation; I25.10 Atherosclerotic heart disease of native coronary artery without angina pectoris; E78.00 Pure hypercholesterolemia, unspecified; F03.90 Unspecified dementia, unspecified severity, without behavioral disturbance, psychotic disturbance, mood disturbance, and anxiety; G43.909 Migraine, unspecified, not intractable, without status migrainosus; I10 Essential (primary) hypertension; E11.40 Type 2 diabetes mellitus with diabetic neuropathy, unspecified; K21.9 Gastro-esophageal reflux disease without esophagitis; M81.0 Age-related osteoporosis without current pathological fracture; E03.9 Hypothyroidism, unspecified; F41.9 Anxiety disorder, unspecified; F32.9 Major depressive disorder, single episode, unspecified; Z91.5 Personal history of self-harm; Z98.890 Other specified postprocedural states; Z90.49 Acquired absence of other specified parts of digestive tract; Z98.51 Tubal ligation status; Z87.2 Personal history of diseases of the skin and subcutaneous tissue
CPT/HCPCS: 36415; 80053; 83880; 85025

== ENCOUNTER 2017-10-15 08:31 | Outpatient (RCR) | payer MEDICARE, MEDICAID | END 2017-11-02 | disposition home or self-care (01) | PROVIDERS: ATTEND Orthopaedic Surgery | DX: Z47.1 Aftercare following joint replacement surgery (principal); Z96.652 Presence of left artificial knee joint ==

== ENCOUNTER → 2017-11-03 | Outpatient (CLI) | payer MEDICARE, MEDICAID | LOC: LAB 09:46 | PROVIDERS: ATTEND Nurse Practitioner | DX: R19.7 Diarrhea, unspecified (principal) | CPT/HCPCS: 36415; 82705; 87045; 87046; 87328; 87329; 87493; 89055 ==

== ENCOUNTER → 2017-11-03 | Outpatient (CLI) | payer MEDICARE, MEDICAID ==
--- NOTE | 2017-11-03 14:52 | Diagnostic Imaging Report ---
PROCEDURE: MRI lumbar spine. TECHNIQUE: Multiplanar, multisequence MRI of the lumbar spine was performed without contrast. INDICATION: Low back pain for one year with bilateral leg pain. COMPARISON: Comparison is made with prior MRI of the lumbar spine from 04/03/2017. FINDINGS: Curvature and alignment of the lumbar spine is normal. The vertebral body heights and marrow signal intensity are normal. There is no geographic marrow lesion. No acute compression fracture is detected. There continues to be some desiccation of the disc at the L3-4 and L4-L5 levels, compatible with degenerative disc disease. Conus is unremarkable at L1 level. T12-L1: No central canal or neural foraminal stenosis is identified. L1-2: Unremarkable. L2-3: Unremarkable. L3-4: Central canal and neural foramina are widely patent. L4-5: There is broad-based disc/osteophyte complex flattening the ventral thecal sac. There is some increased signal noted within the midline of the posterior annulus, suggestive of a small annular tear. No focal disc protrusion is seen. There does appear to be narrowing of the lateral recesses bilaterally. Mild bilateral neural foraminal narrowing is seen. The central canal is patent. L5-S1: Central canal is widely patent. Neural foramina are patent. The paraspinous tissues are unremarkable. IMPRESSION: Lower lumbar spondylosis. This is greatest at L4-5 level where there appears to be a small annular tear. There is broad-based disc bulging resulting in bilateral lateral recess and neural foraminal narrowing. No central canal stenosis or evidence of acute compression fracture is identified. Dictated by: Dictated on workstation # [id number]
== END ==
LOC: RAD 13:08
PROVIDERS: ATTEND Orthopaedic Surgery
DX: M47.26 Other spondylosis with radiculopathy, lumbar region (principal); M51.16 Intervertebral disc disorders with radiculopathy, lumbar region; M99.73 Connective tissue and disc stenosis of intervertebral foramina of lumbar region
CPT/HCPCS: 72148

== ENCOUNTER 2017-11-21 14:57 | Outpatient (RCR) | payer MEDICARE, MEDICAID ==
[~2017-11-21 14:57] MED LIST changes: -BENZ-13 PO; +BENZ100C18 PO; +HYDR-4227 PO; -HYDR-756 PO; -MIRT45TA5 PO; +MIRT45TA75 PO; -OXYC-197 PO; +OXYC1TAB87 PO
== END 2017-12-05 | disposition home or self-care (01) ==
LOC: LAB 14:57
PROVIDERS: ATTEND Nurse Practitioner
DX: R19.7 Diarrhea, unspecified (principal)
CPT/HCPCS: 36415; 82705; 87328; 87329

== ENCOUNTER → 2017-12-05 | Outpatient (CLI) | payer MEDICARE, MEDICAID ==
[~2017-12-05] MED LIST changes: +CATHETER FLUSH 10 ML SYR IV PRN; +REGADENOSON 0.4 MG/5 ML SYR (LEXISCAN) IV ONE
[2017-12-05 09:10] VITALS: BP 117/69
--- NOTE | 2017-12-10 22:38 | STRESS TEST ---
DATE OF SERVICE: 12/05/2017 RESTING AND POST REGADENOSON TECHNETIUM-99M TETROFOSMIN SPECT CT IMAGING ORDERING PHYSICIAN: Dr. Juarez CLINICAL DIAGNOSIS: Atrial flutter, chest discomfort. Baseline images were carried out after injection of 10.7 mCi technetium-99m tetrofosmin. This was followed by 0.4 mg regadenoson and 29.3 mCi of technetium-99m tetrofosmin for stress imaging. The electrocardiogram showed sinus rhythm at baseline. The electrocardiogram did not change significantly with the regadenoson infusion. The patient tolerated the procedure well. Review of images at rest and following stress indicates a minimal apical perfusion defect that appears transient. Gated images show normal global left ventricular systolic function, normal regional wall motion. Left ventricular ejection fraction is calculated to be 58%. Left ventricular end diastolic volume is 82 mL. TID is absent (0.96). CONCLUSIONS: 1. This test study suggestive of a minimal amount of apical ischemia. 2. Normal regional wall motion. 3. Normal global left ventricular systolic function with a calculated ejection fraction of 58%. Job ID: [id number] DocumentID: [id number] Dictated Date: 12/10/2017 18:23:41 Enterprise Software Developer Date: 12/10/2017 22:37:45 Dictated By: MARY MILLER MD, MA, FACP, FACC, MTDD
== END ==
LOC: CARD 07:26
PROVIDERS: ATTEND Internal Medicine Clinical Cardiac Electrophysiology
DX: I48.92 Unspecified atrial flutter (principal); R07.9 Chest pain, unspecified
CPT/HCPCS: 78452; 93017

== ENCOUNTER 2017-12-22 12:31 | Outpatient (RCR) | payer MEDICARE, MEDICAID ==
[~2017-12-22] VITALS: Ht 162.6 cm; Wt 69.9 kg
[~2017-12-22 12:31] MED LIST changes: -CATHETER FLUSH 10 ML SYR IV PRN; -REGADENOSON 0.4 MG/5 ML SYR (LEXISCAN) IV ONE
[2017-12-22] MEDS ORDERED: OMALIZUMAB SUB-Q 150 MG (XOLAIR) VIAL SQ SCH (12:47)
[2017-12-22 13:08] VITALS: BP 115/73
[2017-12-23] MEDS ORDERED: ACETAMINOPHEN 500 MG TAB (TYLENOL) ONE (09:32)
== END 2018-01-04 | disposition home or self-care (01) ==
LOC: SDC 12:31
PROVIDERS: ATTEND Internal Medicine Pulmonary Disease
DX: J45.50 Severe persistent asthma, uncomplicated (principal)
CPT/HCPCS: 96372

== ENCOUNTER 2017-12-23 06:48 | Day surgery (SDC) | payer MEDICARE, MEDICAID ==
[~2017-12-23] VITALS: Ht 160 cm; Wt 73.0 kg
[2017-12-23] VITALS (11 sets, daily range): BP systolic 98–118; BP diastolic 56–74
[2017-12-23] MEDS ORDERED: LIDOCAINE 1% INJ 20 ML 20 ML VIAL ONE (06:50)
[2017-12-23] MEDS ORDERED: HEParin 1000 UNIT/ML (10ML VIAL) FOR BOLUS ONE (06:51)
[2017-12-23] MEDS ORDERED: NS IV 1000 ML 1,000 ML IV SCH ×2 (07:00→08:55)
[2017-12-23 07:34] LABS: HEMOGLOBIN 13.1 G/DL (11.5-16.0); MEAN PLATELET VOLUME 9.5 FL (7.4-10.4); RED BLOOD COUNT 4.55 10^6/uL (4.35-5.85); RED CELL DISTRIBUTION WIDTH 16.9 % (10.0-14.5); WHITE BLOOD COUNT 7.4 10^3/uL (4.3-11.0)
[2017-12-23] MEDS ORDERED: MIDAZOLAM 5 MG/5 ML (VERSED) VIAL ONE (07:36)
[2017-12-23] MEDS ORDERED: fentaNYL INJECTION 100 MCG/2 ML AMP ONE (07:36)
[2017-12-23] MEDS ORDERED: diphenhydrAMINE 50 MG/ML INJ (BENADRYL) ONE (07:36)
[2017-12-23 07:49] LABS: INR 0.9 (0.8-1.4); PROTHROMBIN TIME PATIENT 12.5 SEC (12.2-14.7)
[2017-12-23 07:55] LABS: ALANINE AMINOTRANSFERASE 16 U/L (0-55); ALKALINE PHOSPHATASE 103 U/L (40-136); BILIRUBIN,TOTAL 0.3 MG/DL (0.1-1.0); BUN/CREATININE RATIO 23; CALCIUM 9.6 MG/DL (8.5-10.1); CARBON DIOXIDE 24 MMOL/L (21-32); CHLORIDE 105 MMOL/L (98-107); CHOLESTEROL 200 MG/DL (< 200); GFR ESTIMATED > 60; GLUCOSE 99 MG/DL (70-105); HDL CHOLESTEROL 54 MG/DL (40-60); POTASSIUM 4.4 MMOL/L (3.6-5.0); SODIUM 139 MMOL/L (135-145); TOTAL PROTEIN 6.7 GM/DL (6.4-8.2); TRIGLYCERIDES 194 MG/DL (<150); VLDL CHOLESTEROL 39 MG/DL (5-40)
--- NOTE | 2017-12-23 08:55 | Cardiac Procedure Note-CS/ASA ---
Pre-Procedure Note Pre-Op Procedure Note H&P Reviewed The H&P was reviewed, patient examined and no changes noted. Date H&P Reviewed: Dec 23, 2017 Time H&P Reviewed: 08:25 Conscious Sedation Pre-Proced Time Reviewed: 08:25 ASA Class: 3 Airway Mallampati Classification: ([place] appropriate class) I. II. III, IV Lungs Heart ASA score ASA 1: a normal healthy patient ASA 2: a patient with a mild systemic disease (mid diabetes, controlled hypertension, obesity ASA 3: a patient with a severe systemic disease that limits activity (angina , COPD, prior Myocardial infarction) ASA 4: a patient with an incapacitating disease that is a constant threat to life (CHF, renal failure) ASA 5: a moribund patient not expected to survive 24 hrs. (ruptured aneurysm) ASA 6: a declared brain patient whose organs are being harvested. For emergent operations, add the letter E after the classification Grade 2 Sedation Plan: Analgesia, Amnesia, Plan communicated to team members, Discussed options with patient/fam, Discussed risks with patient/fam Note The patient is an appropriate candidate to undergo the planned procedure, sedation, and anesthesia. The patient immediately re-assessed prior to indication. MARY MILLER MD FACP FAC CCDS Dec 23, 2017 08:55
[2017-12-23] MEDS ORDERED: PATIENT MAY USE OWN MEDS, ALL PO SCH (09:00)
--- NOTE | 2017-12-23 09:00 | Discharge Inst-Post CATH ---
Discharge Inst-CATH Post Cardiac Cath D/C Inst Follow Up/Plan F/u with Dr Verde in 2 weeks NO SMOKING CARDIAC CATH DISCHARGE INSTRUCTIONS *Hold Metformin for 48 hours post heart cath. ACTIVITY * Go Home directly and rest. * Limit activity of the leg (or wrist if it was used) for 7 days including aerobics, swimming, jogging, bicycling, etc. * Restrict stair-climbing for 7 days if possible, if not, climb up with your non -cath leg, then bring together on the same step. * Avoid lifting, pushing, pulling or excessive movement of the affected extremity for 7 days. * Customary sexual activity may be resumed after 2 days-use caution not to use a position that strains or causes pain to the affected extremity. * No driving for 24 hours. * NO SMOKING. * Avoid straining for bowel movements for 7 days. * Gentle walking on level ground is allowed. * Returning to work will depend on the type of procedure and the results. Your doctor will discuss this with you. CALL YOUR DOCTOR FOR ANY OF THE FOLLOWING: *If bleeding from the puncture site occurs- Apply gentle pressure to site with clean cloth and call your doctor or EMS. * If a knot or lump forms under the skin, increases in size, or causes pain. * If bruising appears to be worsening or moving further down your leg instead of disappearing. * Temperature above 101 F. CARE OF YOUR GROIN INCISION; * Bruising or purple discoloration of the skin near the puncture site is common. * You may shower only, no bathtub bathing for 5 days. Be careful to avoid slipping as your leg may feel stiff. * If a closure device was used on your femoral artery, please see the attached guide regarding care of the device and your leg. * REMOVE the dressing from your groin the next day after your procedure in the shower. CARE OF YOUR WRIST INCISION; * Bruising or purple discoloration of the skin near the puncture site is common. * You may shower. * DO NOT submerge wrist. * Remove dressing in 24 hours. MARY VERDE MD [facility] CCDS Dec 23, 2017 09:00
--- NOTE | 2017-12-23 09:01 | Discharge Inst-Cardiology ---
Discharge Inst-Cardiac Discharge Medications Continued Medications: Albuterol Sulfate (Albuterol Sulfate) 2.5 Mg/3 Ml Vial.neb 2.5 MG NEB Q6H PRN for SHORTNESS OF BREATH, EA Albuterol Sulfate (Ventolin Hfa) 1 Puff Puff 2 PUFF IH Q4H PRN for SHORTNESS OF BREATH, PUFF 1 PUFF = 90 MCG Alendronate Sodium (Alendronate Sodium) 70 Mg Tablet 70 MG PO Sa, TAB Apixaban (Eliquis) 5 Mg Tablet 5 MG PO BID, TAB Aripiprazole (Aripiprazole) 10 Mg Tablet 10 MG PO DAILY, TAB Baclofen (Baclofen) 20 Mg Tablet 20 MG PO TID, TAB Budesonide/Formoterol Fumarate (Symbicort 160-4.5 Mcg Inhaler) 10.2 Gm Hfa.aer.ad 2 PUFF IH BID, INHALER Buspirone HCl (Buspirone HCl) 5 Mg Tablet 5 MG PO Q8H PRN for ANXIETY, TAB Cetirizine HCl (Zyrtec) 10 Mg Tablet 10 MG PO DAILY, TAB Clonazepam (Klonopin) 1 Mg Tablet 1 MG PO HS, TAB Colesevelam HCl (Welchol) 625 Mg Tablet 1250 MG PO BID, TAB TAKES 2 (625MG) TABLETS Diltiazem HCl (Diltiazem ER) 240 Mg Cap.er.deg 240 MG PO DAILY, CAP Diphenoxylate HCl/Atropine (Diphenoxylate-Atrop 2.5-0.025) 1 Each Tablet 2 TAB PO QID PRN for DIARRHEA, TAB Donepezil HCl (Donepezil HCl) 10 Mg Tablet 10 MG PO HS, TAB Ergocalciferol (Vitamin D2) (Vitamin D2) 50,000 Unit Capsule 67422 UNIT PO [place], CAP Fluticasone Propionate (Fluticasone Propionate) 16 Gm [place].susp 2 SPRAYS NS BID, SPRAY Gabapentin (Gabapentin) 600 Mg Tablet 600 MG PO TID, TAB Lamotrigine (Lamotrigine) 25 Mg Tablet 75 MG PO HS, TAB TAKES 3 (25MG) TABLETS Magnesium Oxide (Magnesium Oxide) 400 Mg Tablet 400 MG PO DAILY, TAB Memantine HCl (Memantine HCl) 10 Mg Tablet 10 MG PO HS, TAB Mirtazapine (Mirtazapine) 45 Mg Tablet 45 MG PO HS, TAB Montelukast Sodium (Montelukast Sodium) 10 Mg Tablet 10 MG PO HS, TAB Mv,Ca,Min/Iron Fum/FA/Vit K (Multi For Her Tablet) 1 Each Tablet 1 TAB PO DAILY, TAB Nitroglycerin (Nitrostat) 0.4 Mg Tab.subl 0.4 MG PO UD PRN for CHEST PAIN, TAB Omeprazole (Omeprazole) 40 Mg Capsule.dr 40 MG PO DAILY, CAP Ondansetron (Zofran Odt) 4 Mg Tab.rapdis 4 MG SL Q4H PRN for NAUSEA/VOMITING-1ST LINE, TAB Oxybutynin Chloride (Oxybutynin Chloride ER) 10 Mg Tab.er.24 10 MG PO DAILY, TAB Primidone (Primidone) 250 Mg Tablet 250 MG PO TID, TAB Ranitidine HCl (Acid Daycare Worker (RANITIDINE)) 150 Mg Tablet 150 MG PO BID, TAB Rifaximin (Xifaxan) 550 Mg Tablet 550 MG PO TID, TAB Ropinirole HCl (Ropinirole HCl) 2 Mg Tablet 2 MG PO HS, TAB Sertraline HCl (Sertraline HCl) 100 Mg Tablet 100 MG PO DAILY, TAB Simvastatin (Simvastatin) 20 Mg Tablet 20 MG PO HS, TAB Sumatriptan Succinate (Imitrex) 100 Mg Tablet 100 MG PO UD PRN for MIGRAINE, TAB Tiotropium [place] (Spiriva) 1 Inh Aerp 1 CAP IH HS, CAP Trazodone HCl (Trazodone HCl) 150 Mg Tablet 150 MG PO HS, TAB Patient Instructions Patient Instructions: NO SMOKING MARY MILLER MD FACP [facility] Dec 23, 2017 09:01
[2017-12-23] MEDS ORDERED: ACETAMINOPHEN 500 MG TAB (TYLENOL) PO ONE (09:45)
--- NOTE | 2017-12-30 08:58 | CARDIAC CATHETERIZATION ---
DATE OF SERVICE: 12/23/2017 CARDIAC CATHETERIZATION REPORT The patient is a 62-year-old lady who has multiple coronary artery disease risk factors and who has been experiencing chest discomfort consistent with exertional angina. Cardiac catheterization was carried out after having obtained an informed consent. DESCRIPTION OF PROCEDURE: She was brought to the cardiac catheterization laboratory in a fasting state. Right groin was prepared and draped in the usual sterile fashion. A 1% lidocaine local anesthesia. Modified Seldinger technique was used to advance a 5-Burkinan sheath in the right femoral artery. Angiography of the right femoral artery was carried out through the sheath. A 5-Burkinan JL4 catheter was used for left coronary angiography, 5-Burkinan JR4 catheter for right coronary angiography, 5-Burkinan pigtail catheter was used for left heart catheterization and left ventricular angiography. A pigtail catheter was pulled back to the aortic root and the aortic root angiography was performed. Pigtail was removed. Mynx was used to achieve hemostasis. She tolerated the procedure well. HEMODYNAMICS: Left ventricular end-diastolic pressure following coronary angiography was 10 mmHg. There was no significant pressure gradient on pullback across the aortic valve. Ascending aortic pressure was 105/67 with a mean of 85 mmHg. LEFT VENTRICULAR ANGIOGRAPHY: Left ventricular angiography was carried out in the right anterior oblique projection. Global left ventricular systolic function normal. No regional wall motion abnormality is seen. Left ventricular ejection fraction is approximately 60%. There does not appear to be significant mitral regurgitation. AORTIC ROOT ANGIOGRAPHY: Aortic root angiography did not indicate any significant aortic root aneurysm or dissection. The aortic valve leaflets exhibit good leaflet excursion. Coronary arteries are identified. No significant aortic regurgitation is seen. CORONARY ANGIOGRAPHY: There is mild coronary calcification involving all coronary vessels. Left main coronary artery is free of significant obstructive disease. Left anterior descending, left circumflex and right coronary arteries are all free of angiographically significant obstructive coronary artery disease. Right coronary artery is dominant. CONCLUSIONS: 1. Angiographically, mild coronary artery disease. 2. Normal global left ventricular systolic function with an ejection fraction approximately 60%. 3. No significant mitral regurgitation. 4. Normal left ventricular end-diastolic pressure. DISCUSSION AND RECOMMENDATIONS: Based on results of the study, her chronic chest discomfort does not appear to be of coronary origin. She has mild coronary artery disease, as documented in the past. We recommend coronary risk factor modification and continuing conservative management. Job ID: [id number] DocumentID: [id number] Dictated Date: 12/23/2017 08:48:54 Building Construction Teacher Date: 12/23/2017 10:36:33 Dictated By: MARY MILLER MD, MA, FACP, FACC, MTDD
== END 2017-12-23 12:00 | disposition home or self-care (01) ==
LOC: CATH 06:48
PROVIDERS: ATTEND Internal Medicine Cardiovascular Disease
DX: R07.89 Other chest pain (principal); R06.02 Shortness of breath; I48.0 Paroxysmal atrial fibrillation; I95.9 Hypotension, unspecified; E11.51 Type 2 diabetes mellitus with diabetic peripheral angiopathy without gangrene; J44.9 Chronic obstructive pulmonary disease, unspecified; F17.210 Nicotine dependence, cigarettes, uncomplicated; R53.1 Weakness; R63.4 Abnormal weight loss; K21.9 Gastro-esophageal reflux disease without esophagitis; Z79.01 Long term (current) use of anticoagulants
CPT/HCPCS: 36415; 80053; 80061; 85027; 85610; 85730; 87081; 93458; 93567

== ENCOUNTER → 2017-12-26 | Outpatient (CLI) | payer MEDICARE, MEDICAID ==
--- NOTE | 2017-12-29 16:05 | Diagnostic Imaging Report ---
Indication: Screening. The current study was also evaluated with a Computer Aided Detection (CAD) system. 3-D tomosynthesis was also performed and reviewed. Comparison made with prior examination of 01/01/2017 back through 01/24/2011. Findings: The fibroglandular tissue is heterogeneously dense bilaterally. There is a surgical clip in the upper-outer right breast. There are a few benign type calcifications. There is no new dominant mass, spiculated lesion or suspicious calcification identified. Skin, nipples and axilla are unremarkable. Impression: Category 2 benign. ACR BI-RADS Category 2: Benign findings. Result letter will be mailed to the patient. Note: At least 10% of breast cancer is not imaged by mammography. Dictated by: Dictated on workstation # [id number]
== END ==
LOC: RAD 08:11
PROVIDERS: ATTEND Nurse Practitioner Family
DX: Z12.31 Encounter for screening mammogram for malignant neoplasm of breast (principal)
CPT/HCPCS: 77067

== ENCOUNTER 2018-01-01 10:05 | Emergency (ER) | payer MEDICARE, MEDICAID ==
[~2018-01-01] VITALS: Ht 160 cm; Wt 75.3 kg
--- OUTSIDE RECORDS SUMMARY | 2018-01-01 10:14 | XMS REPORT | Encounter Summary ---
Author Author [facility] Organization [facility] Address Unknown Phone Unavailable Care Team Providers Care Key Account Executive Name Role Phone Apoorva Shane MD Unavailable Edgardo Torres MD Unavailable Amanda Bhandari Unavailable Montana Villasenor MD Unavailable Gilles Ness MD Unavailable Rain Tariq MD Unavailable Harika Hsu MD Unavailable Nayana Mccarty RN Unavailable Unavailable Symone Lee Unavailable Unavailable Crissy Grande NP PCP Encounter Details Date Type Department Care Team Description 12/19/[address] [facility] Radiology [facility] [address]nd fl [address] [place] [address] Social History Tobacco Use Types Packs/Day Years Used Date Current Every Day Smoker Cigarettes 0.25 46 Smokeless Tobacco: Never Used Alcohol Use Drinks/Week oz/Week Comments No 0 Standard 0.0 drinks or equivalent Sex Assigned at Date Recorded Not on file as of this encounter Functional Status Functional Status Response Date of Assessment Does the patient have a hearing impairment: Yes 10/29/2017 Does the patient have a visual impairment: Yes 10/29/2017 Does the patient have impaired ambulation: Yes 10/29/2017 Does the patient have an activity of daily living Yes 10/29/2017 (ADL) impairment: Does the patient have an instrumental activity of Yes 10/29/2017 daily living (IADL) impairment: Cognitive Status Response Date of Assessment Does the patient have a cognitive impairment: No 10/29/2017 as of this encounter Medications at Time of Discharge Medication Sig. Disp. Refills Start Date End Date albuterol (VENTOLIN HFA) Inhale 2 puffs by mouth 90 mcg/actuation inhaler into the lungs daily. Shake well before use. apixaban (ELIQUIS) 5 mg Take 5 mg by mouth twice tab tablet daily. ARIPiprazole (ABILIFY) 10 Take 10 mg by mouth mg tablet daily. baclofen (LIORESAL) 20 mg Take 20 mg by mouth three tablet times daily. budesonide/formoterol Inhale 2 Puffs by mouth (SYMBICORT) 160/4.5 mcg daily. HFAA inhalation cetirizine (ZYRTEC) 10 mg Take 10 mg by mouth every tablet morning. clonazePAM (KLONOPIN) 1 Take 1 mg by mouth daily mg tablet as needed. colesevelam(+) (WELCHOL) Take 1,875 mg [...] gabapentin (NEURONTIN) Take 600 mg by mouth 400 mg capsule three times daily. memantine,+, (NAMENDA) 10 Take 10 mg by mouth mg tablet daily. metoclopramide (REGLAN) Take 1 tablet before 90 tablet 1 10/29/2017 10 mg tabletIndications: meals Diarrhea, unspecified type mirtazapine (REMERON) 45 Take 45 mg by mouth at mg tablet bedtime daily. montelukast (SINGULAIR) Take 10 mg by mouth [...] by mouth (PROTONIX) 40 mg tablet daily. ranitidine(+) (ZANTAC) Take one tablet by mouth [...] by mouth at mg tablet bedtime daily. as of this encounter Plan of Treatment Date Type Specialty Care Team Description 01/02/2018 Surgery Benito Albrecht MD ESOPHAGOGASTRODUODENOSCOP [address] ENDOSCOPIC ULTRASOUND [address] [place] [address] [phone] 01/02/2018 Procedure Pass 01/02/2018 Hospital Benito Albrecht MD Weight loss Encounter [address] [place] [address] [phone] as of this encounter Procedures Procedure Name Priority Date/Time Associated Diagnosis Comments MRI T-SPINE EXTERNAL Routine 12/19/2017 Diagnosis unknown Results for this IMAGING 12:00 AM CDT procedure are in the results section. in this encounter Results * MRI T-SPINE EXTERNAL IMAGING (12/19/2017) Narrative Performed At This order has been auto finalized and does not contain a result. in this encounter Visit Diagnoses Diagnosis Diagnosis unknown Other unknown and unspecified cause of morbidity or mortality
--- OUTSIDE RECORDS SUMMARY | 2018-01-01 10:14 | XMS REPORT | Encounter Summary ---
Author Author [facility] Organization [facility] Address Unknown Phone Unavailable Care Team Providers Care Materials Handling Coordinator Name Role Phone Apoorva Shane MD Unavailable Edgardo Torres MD Unavailable Amanda Bhandari Unavailable Montana Villasenor MD Unavailable Gilles Ness MD Unavailable Rain Tariq MD Unavailable Harika Hsu MD Unavailable Nayana Mccarty RN Unavailable Unavailable Symone Lee Unavailable Unavailable Crissy Grande BUILDING OFFICIAL PCP Reason for Visit * Reason Comments General Question Encounter Details Date Type Department Care Team Description 12/29/2017 Telephone [facility] Edson Negrete MD General Question Physicians - Urology [address] [place] [address] [address] [place] [id number] Social History Tobacco Use Types Packs/Day Years [...] impairment: No 10/29/2017 as of this encounter Miscellaneous Notes * Telephone Encounter - Edson Negrete MD - 12/29/2017 5:01 PM CDT Ms. Huizar is a 62yo F with hx of MS, urinary urgency s/p Botox injection on 02/22. Attempted to contact patient, no answer. It went straight to voicemail. Message left requesting patient call back if she would still like to discuss with us. Was able to reach patient by phone regarding current symptoms on second attempt. She says that things are the same and that she is very curious about urine culture which she submitted via per PCP on 12/25/17. Patient attempted to discuss results with her PCP but they recommended that she instead discuss with urology team. She denies any trouble with self catherizations at this time. Still continues to have urinary frequency, urgency, dysuria. Contacted lab at [facility] in [place], [place] at [phone]. Urine culture submitted on 12/25/17 grew enterococcus fecalis. Results were disclosed over the phone including susceptibilities. Fax results also received noting sensitive to ampicillin, levofloxacin, nitrofurantoin, vancomycin. Resistant to Gentamycin. Re-contacted patient to discuss results. Discussed with her that it only grew 50 -90K cfu/mL of Enterococcus which does not typically meet our criteria to treat. However, since she definitely feels like she is symptomatic, it is reasonable to treat. > Script for Macrobid x 5 days sent to her pharmacy > Instructed patient to call back if her symptoms of urinary frequency, urgency , incomplete emptying do not resolve. Edson Negrete MD PGY2 Urology Resident in this encounter Plan of Treatment Date Type Specialty Care Team Description 01/02/2018 Surgery Benito Albrecht MD ESOPHAGOGASTRODUODENOSCOP [address] ENDOSCOPIC ULTRASOUND [address] [place] [address] [phone] 01/02/2018 Procedure Pass 01/02/2018 Hospital Benito Albrecht MD Weight loss Encounter [address] [place] [address] [phone] as of this encounter Visit Diagnoses Not on filein this encounter
--- OUTSIDE RECORDS SUMMARY | 2018-01-01 10:14 | XMS REPORT | Encounter Summary ---
Author Author [facility] Organization [facility] Address Unknown Phone Unavailable Care Team Providers Care Grip Name Role Phone Apoorva Shane MD Unavailable Edgardo Torres MD Unavailable Amanda Bhandari Unavailable Montana Villasenor MD Unavailable Gilles Ness MD Unavailable Rain Tariq MD Unavailable Harika Hsu MD Unavailable Nayana Mccarty RN Unavailable Unavailable Symone Lee Unavailable Unavailable Crissy Grande DIRECTOR OF MECHANICAL ENGINEERING PCP Reason for Visit * Reason Comments General Question Encounter Details Date Type Department Care Team Description 12/29/2017 Telephone [facility] Balbina Garcia MD General Question Physicians - Urology [address] Ortho and Medical [address] [place] [address] [address] [facility] [phone] [place] [address] Social History Tobacco Use Types [...] encounter Miscellaneous Notes * Telephone Encounter - Elly Smallwood - 12/29/2017 9:30 AM CDT Pt stated not much urine is coming out of catheter. She said there was blood in her urine and she went to her local hospital and gave a sample for a UA. I left vm that she has talked to a resident about her symptoms and he told her once we receive the results we will call her. The resident also told her that her symptoms were likely due to her MS. I told her to call if she has any questions. in this encounter Plan of Treatment Date Type Specialty Care Team Description 01/02/2018 Surgery Benito Albrecht MD ESOPHAGOGASTRODUODENOSCOP [address] ENDOSCOPIC ULTRASOUND [address] [place] [address] [phone] 01/02/2018 Procedure Pass 01/02/2018 Hospital Benito Albrecht MD Weight loss Encounter [address] [place] [address] [phone] as of this encounter Visit Diagnoses Not on filein this encounter
--- OUTSIDE RECORDS SUMMARY | 2018-01-01 10:14 | XMS REPORT | Encounter Summary ---
Author Author [facility] Organization [facility] Address Unknown Phone Unavailable Care Team Providers Care Local Hazmat Driver Name Role Phone Apoorva Shane MD Unavailable Edgardo Torres MD Unavailable Amanda Bhandari Unavailable Montana Villasenor MD Unavailable Gilles Ness MD Unavailable Rain Tariq MD Unavailable Harika Hsu MD Unavailable Nayana Mccarty RN Unavailable Unavailable Symone Lee Unavailable Unavailable Crissy Grande SNAP ATTACHER PCP Reason for Visit * Reason Comments General Question Encounter Details Date Type Department Care Team Description 12/29/2017 Telephone [facility] Balbina Garcia MD General Question Physicians - Urology [address] Ortho and Medical [address] [place] [address] [address] [facility] [phone] [place] [address] Social History Tobacco Use Types [...] encounter Miscellaneous Notes * Telephone Encounter - Margot Broussard - 12/29/2017 10:54 AM CDT Pt called regarding self cathing. She stated when she self caths she is not getting any urine out. She is still urinating on own but feels like she still has to go. Pt concerned about her symptoms. Call routed to urology resident. Please call pt back regarding her S/S. in this encounter Plan of Treatment Date Type Specialty Care Team Description 01/02/2018 Surgery Benito Albrecht MD ESOPHAGOGASTRODUODENOSCOP [address] ENDOSCOPIC ULTRASOUND [address] [place] [address] [phone] 01/02/2018 Procedure Pass 01/02/2018 Hospital Benito Albrecht MD Weight loss Encounter [address] [place] [address] [phone] as of this encounter Visit Diagnoses Not on filein this encounter
--- OUTSIDE RECORDS SUMMARY | 2018-01-01 10:14 | XMS REPORT | Encounter Summary ---
Author Author [facility] Organization [facility] Address Unknown Phone Unavailable Care Team Providers Care Manager Internet Retails Sales Name Role Phone Apoorva Shane MD Unavailable Edgardo Torres MD Unavailable Amanda Bhandari Unavailable Montana Villasenor MD Unavailable Gilles Ness MD Unavailable Rian Tariq MD Unavailable Harika Hsu MD Unavailable Nayana Mccarty RN Unavailable Unavailable Symone Lee Unavailable Unavailable Crissy Grande VEHICLE CALIBRATION ENGINEER PCP Reason for Visit * Reason Comments General Question Encounter Details Date Type Department Care Team Description 12/22/2017 Telephone [facility] Balbina Garcia MD General Question Physicians - Urology [address] Ortho and Medical [address] [place] [address] [address] [facility] [phone] [place] [address] Social History Tobacco Use Types [...] encounter Miscellaneous Notes * Telephone Encounter - Neetu Mann RN - 12/22/2017 4:02 PM CDT Spoke with patient who stated that she had the botox procedure done with Dr. Garcia a week ago and she is still having the sensation to urinate frequently. She is aware that she will still have some of this feeling. Patient also stated that she does not feel like she is voiding very much and when straight caths she is not always getting urine out. She stated that she will get urine to drain about 2 out of 10 times. Patient stated that she is using a mirror to find her urethra.She wants to know if this is something that she should be worried about or if this is normal. Please advise patient. in this encounter Plan of Treatment Date Type Specialty Care Team Description 01/02/2018 Surgery Benito Albrecht MD ESOPHAGOGASTRODUODENOSCOP [address] ENDOSCOPIC ULTRASOUND [address] [place] [address] [phone] 01/02/2018 Procedure Pass 01/02/2018 Hospital Benito Albrecht MD Weight loss Encounter [address] [place] [address] [phone] as of this encounter Visit Diagnoses Not on filein this encounter
--- OUTSIDE RECORDS SUMMARY | 2018-01-01 10:14 | XMS REPORT | Clinical Summary ---
Author Author [facility] Organization [facility] Address Unknown Phone Unavailable Care Team Providers Care Rental Car Deliverer Name Role Phone Apoorva Shane MD Unavailable Edgardo Torres MD Unavailable Amanda Bhandari Unavailable Montana Villasenor MD Unavailable Gilles Ness MD Unavailable Rain Tariq MD Unavailable Harika Hsu MD Unavailable Nayana Mccarty RN Unavailable Unavailable Symone Lee Unavailable Unavailable Crissy Grande MEDICAL TECHNICAL WRITER PCP Source Comments Some departments are not documenting in the electronic medical record. If you do not see the information that you expected, contact Release of Information in the Health Information Management department at [phone] for further assistance in locating additional records.[facility] Allergies Active Allergy Reactions Severity Noted Date Comments Ibuprofen RASH Medium 06/09/2009 Naproxen Sodium NAUSEA ONLY Low 11/13/2017 Ftkwf-Jpfuu-Lmcoytv-Pramo RASH Medium 01/23/2017 xinjeff Current Medications Prescription Sig. Disp. Refills Start [...] mouth Active mcg capsule for inhaler daily. nitroglycerin (NITROSTAT) Place 0.4 mg under tongue Active 0.4 mg tablet every 5 minutes as needed for Chest Pain. diphenoxylate/atropine Take 2 tablets by mouth Active (LOMOTIL) 2.5/0.025 mg four times daily as tablet needed for Diarrhea. gabapentin (NEURONTIN) Take 600 mg by mouth Active 400 mg capsule three times daily. apixaban (ELIQUIS) 5 mg Take 5 mg by mouth twice Active tab tablet daily. other medication 1 Dose. 5L/NC home oxygen Active baclofen (LIORESAL) 20 mg Take 20 mg [...] mouth Active CD) 240 mg capsule daily. colesevelam(+) (WELCHOL) Take 1,875 mg by [...] the lungs daily. Shake well before use. ergocalciferol (VITAMIN Take 1 capsule by mouth Active D-2) 50,000 unit capsule every 7 days. Sundays fluticasone (FLONASE) 50 Apply 1-2 sprays to each Active mcg/actuation nasal nostril as directed daily sprayIndications: as needed. Shake bottle Allergic Rhinitis gently before using. nystatin (NYSTOP) 100,000 Apply topically to 30 g 0 04/04/20 Active unit/g topical affected area four times 18 powderIndications: Yeast daily. dermatitis oxybutynin XL (DITROPAN Take 1 tablet by mouth 90 tablet 3 07/11/19 Active XL) 10 mg daily. Do not cut/ crush/ 18 tabletIndications: chew Urinary incontinence, unspecified type ARIPiprazole (ABILIFY) 10 Take 10 mg by mouth Active mg tablet daily. cetirizine (ZYRTEC) 10 mg Take 10 mg by mouth every Active tablet morning. ranitidine(+) (ZANTAC) Take one tablet by mouth 60 tablet 3 10/04/19 Active 300 mg tablet midday and one at 18 bedtime. metoclopramide (REGLAN) Take 1 tablet before 90 tablet 1 10/30/19 Active 10 mg tabletIndications: meals 18 Diarrhea, unspecified type clonazePAM (KLONOPIN) 1 Take 1 mg by mouth daily Active mg tablet as needed. mirtazapine (REMERON) 45 Take 45 mg by mouth at Active mg tablet bedtime daily. nitrofurantoin Take one capsule by mouth 10 capsule 0 12/30/1901/03 Active monohyd/m-cryst every 12 hours for 5 18 18 (MACROBID) 100 mg capsule days. Take with food. Active Problems Problem Noted Date Abnormal brain MRI 11/13/2017 Last Assessment & Plan: The patient brain as extensive white matter lesions some of which appear vascular in nature and the some other crissy-ventricular lesions have a perpendicular orientation which makes demyelination a possibility. Non of the lesions enhance or diffusion restrict to make this more separable. I do think obtaining a T spine MRI is very important here to establish the cause of the myelopathy. 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 This could be secondary to extensive WM disease. I did not have the chance to fully evaluate this but we can arrange for an evaluation with movement disorder specialist in the future. Weight loss 11/05/2017 Overview: Added automatically from request for surgery [id number] Bile duct abnormality 11/05/2017 Overview: Added automatically from request for surgery [id number] Nausea and vomiting 11/05/2017 Overview: Added automatically from request for surgery [id number] Bilateral leg weakness 10/29/2017 Last Assessment & Plan: The patient has bilateral leg weakness in a myelopathic feature. I think given the MRI brain appearance the possibility of an old demyelinating disease is very plausible here. I don't see any C-spine lesions and I discussed with the patient that I would recommend T-spine lesions as I do not think her symptoms are due to an L-spine component. I mentioned to the family the possibility of a lumbar puncture but that would be difficult due to the anti-coagulation. The family want to see the back surgeon first before committing to any further testing. I agree with that and I am happy to talk to him as wee. Neurogenic bladder 10/29/2017 Overview: She has objective evidence of obstruction on recent urodynamics, pain and straining with voiding, urgency and urge incontinence, and recurrent UTIs. UDS prior to urethrolysis: retention; high voiding pressures; no DO 06/13/17 urethrolysis, sling excision Now, with resolution of obstruction, yet urgency and BRONWYN (UUI>RICO); short period poorly controlled DM and no follow-up for her MS Repeat UDS today shows large capacity; incomplete emptying; low pressure DO. +LPP; hypotonic. There is much improved emptying from prior to sling excision. Yet, continued incontinence and some incomplete emptying. L ast Assessment & Plan: - cic q3h - botox 300u 12/02/17 - hold eloquis for 1 week preop Urinary obstruction 05/28/2017 Overview: 61 year old [...] and no follow-up for her MS L ast Assessment & Plan: - UDS - 2 [...] Encounters Date Type Specialty Care Team Description 12/29/2017 Telephone Urology Edson Negrete MD General Question 12/29/2017 Telephone Urology Balbina Garcia MD General Question 12/29/2017 Telephone Urology Balbina Garcia MD General Question 12/24/2017 Ancillary Radiology Outpatient, Radiologist Diagnosis unknown Orders 12/22/2017 Telephone Urology Javier Hawk MD Urinary Frequency 12/22/2017 Telephone Urology Balbina Garcia MD General Question 12/19/2017 Hospital Radiology Encounter 12/17/2017 Telephone UrologBalbina Shoemaker MD General Question 12/16/2017 [facility] Balbina Garcia MD Neurogenic bladder Encounter 12/16/2017 Telephone Urology Balbina Garcia MD General Question 12/16/2017 Telephone Urology Balbina Garcia MD General Question 12/16/2017 Procedure Pass 12/16/2017 Surgery Balbina Garcia MD CYSTOSCOPY, INJECTION BOTOX (300 UNITS) 12/15/2017 Anesthesia Livier Moran Event MD 12/03/2017 Telephone Gastroenterology Benito Albrecht MD Patient Questions 11/17/2017 Documentation Neurology Radames Newby MD 11/13/2017 Office Visit Neurology Alvaro Duval MD Bilateral leg weakness Radames Newby MD (Primary Dx); Abnormal brain MRI; Secondary parkinsonism, unspecified secondary Parkinsonism type (HCC) 11/13/2017 Hospital Radiology Radames Newby MD Encounter 11/13/2017 Hospital Lab Alvaro Duval MD Hematuria, unspecified Encounter 11/13/2017 Office Visit Nephrology Alvaro Duval MD Hematuria , unspecified type (Primary Dx) 11/07/2017 Telephone Gastroenterology Utech, Amanda, LAWYER Results; Follow Up 11/05/2017 Orders Only Gastroenterology Rayaech, Amanda, LAWYER Diarrhea, unspecified type 11/05/2017 Orders Only Neurology Radames Newby MD 11/04/2017 Documentation Neurology Radames Newby MD 11/04/2017 Telephone Gastroenterology U[employer] Amanda, LAWYER Results (c- diff negative) 10/30/2017 Telephone Urology Balbina Garcia MD Procedure 10/29/2017 Office Visit Gastroenterology Utech, Amanda, LAWYER Diarrhea, unspecified type (Primary Dx); Nausea and vomiting, intractability of vomiting not specified, unspecified vomiting type; Gastroparesis; Weight loss, unintentional 10/29/2017 Office Visit Neurology Balbina Garcia MD Bilateral leg weakness Radames Newby MD (Primary Dx) 10/29/2017 Office Visit Urology Balbina Garcia MD Neurogenic bladder 10/29/2017 Clinical Urology Frequency of micturition Support (Primary Dx) 10/29/2017 Hospital Radiology Amanda Bhandari ARNP Encounter 10/29/2017 Procedure Pass Radiology 10/29/2017 Procedure Pass Radiology 10/29/2017 Prep for Case Gastroenterology Amanda Bhandari ARNP Nausea and vomiting, intractability of vomiting not specified, unspecified vomiting type (Primary Dx); Weight loss; Bile duct abnormality 10/29/2017 Prep for Case Urology Balbina Garcia MD Neurogenic bladder (Primary Dx); Bleeding tendency (HCC) 10/23/2017 Telephone Urology Balbina Garcia MD Medication Question 10/20/2017 Telephone Urology Josue Mitchell MD Medication Question 10/20/2017 Telephone Urology Balbina Garcia MD Medication Follow- up 10/16/2017 Refill Uro Air Support Control Officer Rain Tariq MD Urinary incontinence in female 10/03/2017 Hospital Lab Amanda Bhandari ARNP Abnormal weight loss Encounter 10/03/2017 Office Visit Gastroenterology Amanda Bhandari ARNP Weight loss , unintentional (Primary Dx); Chronic diarrhea; Nausea and vomiting, intractability of vomiting not specified, unspecified vomiting type; Gastroparesis 10/03/2017 Procedure Pass Radiology from Last 3 Months Family History Medical [...] Vital Sign Reading Time Taken Blood Pressure 101/72 12/16/2017 10:15 AM CDT Pulse 96 12/16/2017 10:00 AM CDT Temperature 36.7 C (98.1 F) 12/16/2017 10:27 AM CDT Respiratory Rate 12 10/29/2017 2:40 PM CDT Oxygen Saturation 92% 12/16/2017 10:15 AM CDT Inhaled Oxygen - - Concentration Weight 73.8 kg (162 lb 12.8 oz) 12/16/2017 6:10 AM CDT Height 160 cm (5' 3") 12/16/2017 6:10 AM CDT Body Mass Index 28.84 12/16/2017 6:10 AM CDT Plan of Treatment Date Type Specialty Care Team Description 01/02/2018 Surgery Benito Albrecht MD ESOPHAGOGASTRODUODENOSCOP [address] ENDOSCOPIC ULTRASOUND [address] [place], [place] [id number] 01/02/2018 Procedure Pass 01/02/2018 Hospital Benito Albrecht MD Weight loss Encounter [address] [place], [place] [id number] Health Maintenance Due Date Last Done Comments HEPATITIS C SCREENING 1953 PHYSICAL (COMPREHENSIVE) 1960 EXAM PERTUSSIS VACCINE 1964 HIV SCREENING 1968 TETANUS VACCINE 1970 DILATED EYE EXAM 07/21/1971 FOOT EXAM 07/21/1971 HBA1C 07/21/1971 MICROALBUMIN 07/21/1971 PNEUMONIA VACCINE (DM) 07/21/1971 CERVICAL CANCER SCREENING 07/21/1983 BREAST CANCER SCREENING 1993 COLORECTAL CANCER 07/21/2003 SCREENING SHINGLES RECOMBINANT 07/21/2003 VACCINE (1 of 2) INFLUENZA VACCINE 01/05/2018 06/21/2013 Procedures Procedure Name Priority Date/Time Associated Diagnosis Comments MRI T-SPINE EXTERNAL Routine 12/19/2017 Diagnosis unknown Results for this IMAGING 12:00 AM CDT procedure are in the results section. ECG-SCAN 12/17/2017 Results for this 12:08 PM CDT procedure are in the results section. POC GLUCOSE 12/16/2017 Results for this 9:30 AM CDT procedure are in the results section. CYSTOSCOPY INJECTION 12/16/2017 Neurogenic bladder NEUROTOXIN 8:30 AM CDT Special Needs 10/31 PER CHANGE FORM CASE MOVED FROM 12/02 TO 12/16 - Tay GUERRA RN ([id number]) POC GLUCOSE 12/16/2017 Results for this 6:26 AM CDT procedure are in the results section. MRI C-SPINE WO/W CONTRAST Routine 11/13/2017 Bilateral leg weakness Results for this 2:44 PM CDT procedure are in the results section. MRI HEAD WO/W CONTRAST Routine 11/13/2017 Bilateral leg weakness Results for this 2:44 PM CDT procedure are in the results section. POC CREATININE, RAD 11/13/2017 Results for this 1:44 PM CDT procedure are in the results section. PROTEIN/CR RATIO,UR RAN Routine 11/13/2017 Hematuria, unspecified Results for this 10:56 AM CDT type procedure are in the results section. POC URINE DIPSTICK AUTO Routine 11/13/2017 Hematuria, unspecified Results for this READ 12:00 AM CDT type procedure are in the results section. LEUKOCYTES, FECAL Routine 11/03/2017 Diarrhea, unspecified Results for this 12:00 AM CDT type procedure are in the results section. CULTURE-FECES Routine 11/03/2017 Diarrhea, unspecified Results for this W/SENSITIVITY 12:00 AM CDT type procedure are in the results section. C DIFFICILE BY PCR Routine 11/03/2017 Diarrhea, unspecified Results for this 12:00 AM CDT type procedure are in the results section. CT ABD/PELV W CONTRAST Routine 10/29/2017 Weight loss, Results for this 7:30 AM CDT unintentional procedure are in the Chronic diarrhea results section. Nausea and vomiting, intractability of vomiting not specified, unspecified vomiting type Gastroparesis POC URINE DIPSTICK MANUAL Routine 10/29/2017 Frequency of micturition Results for this READ 12:00 AM CDT procedure are in the results section. URODYNAMIC STUDIES Routine 10/29/2017 Frequency of micturition Results for this 12:00 AM CDT procedure are in the results section. TSH WITH FREE T4 REFLEX Routine 10/03/2017 Weight loss, Results for this 9:50 AM CDT unintentional procedure are in the Chronic diarrhea results section. Nausea and vomiting, intractability of vomiting not specified, unspecified vomiting type Gastroparesis LIPASE Routine 10/03/2017 Weight loss, Results for this 9:50 AM CDT unintentional procedure are in the Chronic diarrhea results section. Nausea and vomiting, intractability of vomiting not specified, unspecified vomiting type Gastroparesis AMYLASE Routine 10/03/2017 Weight loss, Results for this 9:50 AM CDT unintentional procedure are in the Chronic diarrhea results section. Nausea and vomiting, intractability of vomiting not specified, unspecified vomiting type Gastroparesis COMPREHENSIVE METABOLIC Routine 10/03/2017 Weight loss, Results for this PANEL 9:50 AM CDT unintentional procedure are in the Chronic diarrhea results section. Nausea and vomiting, intractability of vomiting not specified, unspecified vomiting type Gastroparesis from Last 3 Months Results * MRI T-SPINE EXTERNAL IMAGING (12/19/2017) Narrative Performed At This order has been auto finalized and does not contain a result. * ECG-SCAN (12/17/2017 12:08 PM) Narrative Performed At Ordered by an unspecified provider. * POC GLUCOSE (12/16/2017 9:30 AM) Only the most recent of 2 results within the time period is included. Glucose, POC 93 70 - 100 MG/DL MAIN LAB Performing Organization Address City/State/Zipcode Phone Number MAIN LAB [address] [place] [address] * MRI C-SPINE WO/W CONTRAST (11/13/2017 2:44 PM) Narrative Performed At MRI cervical spine [facility] RES[facility] History: Bilateral leg weakness history of possible MS. Technique: Multiplanar, multisequence MRI images were obtained through the cervical spine with and without contrast. There are postsurgical changes of prior anterior and posterior spinal fusions. There appear to have been discectomies with interbody grafts at the C3-4, C4-5 , and C5-6 levels. There is susceptibility artifact consistent with ACDF at C7- T1. There has been posterior laminectomies from C3 through C7. There is posterior fusion hardware from C3 through C7. Hardware somewhat limits evaluation of portions of the vertebral bodies, spinal canal, and posterior elements. The cervical and upper thoracic cord signal is grossly normal the cord volume is normal without definite cord lesion. While portions of the canal and foramina are obscured by artifact, there is no residual cervical spinal stenosis identified. There is mild upper thoracic spinal canal narrowing at the T1-2 level where there is a posterior disc osteophyte complex as well as posterior ligamentous thickening, though no abnormal cord signal. At the C3-4 level there is a left posterolateral disc osteophyte complex and uncovertebral joint enlargement which effaces the ventral thecal sac at this location. There is at least some left neural foraminal stenosis at this level. Foraminal evaluation at multiple other levels is limited by artifact. Findings: 1. Prior C3-C7 laminectomies and posterior fusion. 2. Multilevel interbody fusions with interbody grafts and fixations at multiple levels. There is anterior fusion hardware at C7-T1. 3. No definite cord abnormality. 4. No cervical spinal stenosis. Mild upper thoracic spinal stenosis at the T1- 2 level. 5. Limited foraminal secondary to hardware artifact. Finalized by David Horne M.D. on 11/13/2017 3:23 PM. Dictated by David Horne M.D. on 11/13/2017 3:10 PM. Procedure Note Interface, Radiant Results - 11/13/2017 3:26 PM CDT MRI cervical spine History: Bilateral leg weakness history of possible MS. Technique: Multiplanar, multisequence MRI images were obtained through the cervical spine with and without contrast. There are postsurgical changes of prior anterior and posterior spinal fusions. There appear to have been discectomies with interbody grafts at the C3-4, C4-5, and C5-6 levels. There is susceptibility artifact consistent with ACDF at C7-T1. There has been posterior laminectomies from C3 through C7. There is posterior fusion hardware from C3 through C7. Hardware somewhat limits evaluation of portions of the vertebral bodies, spinal canal, and posterior elements. The cervical and upper thoracic cord signal is grossly normal the cord volume is normal without definite cord lesion. While portions of the canal and foramina are obscured by artifact, there is no residual cervical spinal stenosis identified. There is mild upper thoracic spinal canal narrowing at the T1-2 level where there is a posterior disc osteophyte complex as well as posterior ligamentous thickening, though no abnormal cord signal. At the C3-4 level there is a left posterolateral disc osteophyte complex and uncovertebral joint enlargement which effaces the ventral thecal sac at this location. There is at least some left neural foraminal stenosis at this level. Foraminal evaluation at multiple other levels is limited by artifact. Findings: 1. Prior C3-C7 laminectomies and posterior fusion. 2. Multilevel interbody fusions with interbody grafts and fixations at multiple levels. There is anterior fusion hardware at C7-T1. 3. No definite cord abnormality. 4. No cervical spinal stenosis. Mild upper thoracic spinal stenosis at the T1- 2 level. 5. Limited foraminal secondary to hardware artifact. Finalized by David Horne M.D. on 11/13/2017 3:23 PM. Dictated by David Horne M.D. on 11/13/2017 3:10 PM. Performing Organization Address City/State/Zipcode Phone Number [facility] * MRI HEAD WO/W CONTRAST (11/13/2017 2:44 PM) Impressions Performed At 1. No intracranial mass or acute/recent infarct. [facility] 2. Mild to moderate scattered small foci of FLAIR hyperintensity throughout both cerebral hemispheres. The appearance is nonspecific. In patients this age, such hyperintensities are commonly secondary to chronic small vessel ischemic changes. Potential other considerations include migraine headaches, the myelination, vasculitis, or sequelae of prior infectious or inflammatory etiologies. 3. No enhancing lesions Finalized by David Horne M.D. on 11/13/2017 3:23 PM. Dictated by David Horne M.D. on 11/13/2017 2:47 PM. Narrative Performed At MRI head [facility] History: Bilateral leg weakness. Technique: Multiplanar, multisequence MRI images were obtained through the head with and without contrast. Findings: The cerebral and cerebellar volumes are normal. The ventricle sizes are normal. There is no intracranial mass. There are scattered small T2/FLAIR hyperintensities scattered throughout both cerebral hemispheres. These are greatest within the right parietal lobe. These are nonspecific. There is a tiny area of encephalomalacia in the posterior right cerebellum. There is a small round area of susceptibility in the left frontal lobe consistent with a small chronic microhemorrhage (image 15 of series 10). Procedure Note Interface, Radiant Results - 11/13/2017 3:26 PM CDT MRI head History: Bilateral leg weakness. Technique: Multiplanar, multisequence MRI images were obtained through the head with and without contrast. Findings: The cerebral and cerebellar volumes are normal. The ventricle sizes are normal. There is no intracranial mass. There are scattered small T2/FLAIR hyperintensities scattered throughout both cerebral hemispheres. These are greatest within the right parietal lobe. These are nonspecific. There is a tiny area of encephalomalacia in the posterior right cerebellum. There is a small round area of susceptibility in the left frontal lobe consistent with a small chronic microhemorrhage (image 15 of series 10). IMPRESSION 1. No intracranial mass or acute/recent infarct. 2. Mild to moderate scattered small foci of FLAIR hyperintensity throughout both cerebral hemispheres. The appearance is nonspecific. In patients this age, such hyperintensities are commonly secondary to chronic small vessel ischemic changes. Potential other considerations include migraine headaches, the myelination, vasculitis, or sequelae of prior infectious or inflammatory etiologies. 3. No enhancing lesions Finalized by David Horne M.D. on 11/13/2017 3:23 PM. Dictated by David Horne M.D. on 11/13/2017 2:47 PM. Performing Organization Address [facility] Phone Number [facility] RESULTS * POC CREATININE, RAD (11/13/2017 1:44 PM) Creatinine, POC 0.5 0.4 - 1.00 MG/DL [facility] Performing Organization Address [facility] Phone Number [facility] LAB [address] [place] [address] * PROTEIN/CR RATIO,UR RAN (11/13/2017 10:56 AM) Protein, Random <4 MG/DL MAIN LAB Creatinine, Random 27 MG/DL MAIN LAB Specimen Urine - Urine Performing Organization Address [facility] [place] Phone Number [phone] [address] [place] [address] * POC URINE DIPSTICK AUTO READ (11/13/2017) Urine Glucose POC norm IN CLINIC Urine Bilirubin POC neg IN CLINIC Urine Ketone POC neg IN CLINIC Urine Specific [place] 1.005 IN CLINIC POC Urine Blood POC 50 IN CLINIC Urine PH POC 6 IN CLINIC Urine Protein POC neg IN CLINIC Urine Urobilinogen POC norm IN CLINIC Urine Nitrite POC neg IN CLINIC Urine Leukocytes POC neg IN CLINIC Color,UA IN CLINIC Turbidity,UA IN CLINIC Specimen Urine Performing Organization Address City/State/Zipcode Phone Number IN CLINIC * C DIFFICILE BY PCR (11/03/2017) C. Difficile DNA NEGATIVE OTHER OUTSIDE LAB Specimen Feces Narrative Performed At Performing Organization Address City/[facility]/Zipcode Phone Number OTHER OUTSIDE LAB * LEUKOCYTES, FECAL (11/03/2017) Fecal Leukocytes OTHER OUTSIDE LAB Specimen Stool - Feces Narrative Performed At Performing Organization Address City/[facility]/Zipcode Phone Number OTHER OUTSIDE LAB * CULTURE-FECES W/SENSITIVITY (11/03/2017) Specimen Stool Narrative Performed At Performing Organization Address City/[facility] Phone Number OTHER [facility]IDE [facility] * CT ABD/PELV W CONTRAST (10/29/2017 7:30 AM) Impressions Performed At 1. Mild intrahepatic and moderate extrahepatic biliary ductal dilatation status [facility] post cholecystectomy. There is also mild pancreatic ductal dilatation without pancreatic atrophy. No calcified biliary calculus or obstructing mass is identified. MRI/MRCP could be obtained for further evaluation if clinically indicated. 2. Mild to moderate retained stool throughout segments of colon without bowel obstruction. 3. Moderate dilatation of the bladder. 4. 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 Finalized by Kisha Santamaria M.D. on 10/29/2017 8:36 AM. Dictated by Kisha Santamaria M.D. on 10/29/2017 8:20 AM. Narrative Performed At CT ABDOMEN AND PELVIS [facility] Clinical Indication:Female, 62 years old. Weight loss, chronic diarrhea, elevated LFTs, nausea and vomiting. Technique:Multiple contiguous axial images were obtained through the abdomen and pelvis following the administration of IV contrast material. Portal venous phase of postcontrast imaging was obtained. Post processing coronal and sagittal reconstruction images were made from the axial images. IV contrast: Isovue-370 Bowel contrast:Water Comparison: Correlation is made with ultrasound dated November 11, 2008. FINDINGS: Lower Thorax: Mild emphysema is present. There is linear atelectasis or scarring within the left lower lobe. No pleural effusion. Note is made of lipomatous hypertrophy of the interatrial septum. Coronary arterial calcification is partially visualized. Liver and Biliary system: The liver is normal in size without focal lesion. The gallbladder is absent. Mild intrahepatic and moderate extrahepatic biliary ductal dilatation is identified with the common duct measuring up to 1.2 cm in diameter. No radiopaque biliary calculus is identified. Spleen: Unremarkable. Adrenal Glands and Kidneys: The adrenal glands and kidneys are unremarkable. Pancreas and Retroperitoneum: There is mild dilatation of the pancreatic duct within the head and proximal body. No pancreatic mass is identified and the pancreas is normal in caliber. There are no enlarged retroperitoneal lymph nodes. Aorta and Major Vessels: Aortoiliac vessels are normal caliber and contain moderate calcified plaque. Bowel, Mesentery and Peritoneal space: Large and small bowel is normal caliber with mild to moderate retained stool noted within segments of colon. No ascites is identified. Pelvis: The bladder is moderately distended. The uterus is normal in size. There are no enlarged pelvic lymph nodes. Abdominal wall and Osseous Structures: Serpiginous sclerosis and central lucency is seen involving the bilateral femoral heads compatible with AVN. No significant femoral head collapse is identified Procedure Note Interface, Radiant Results - 10/29/2017 8:[address] ABDOMEN AND PELVIS Clinical Indication: Female, 62 years old. Weight loss, chronic diarrhea, elevated LFTs, nausea and vomiting. Technique: Multiple contiguous axial images were obtained through the abdomen and pelvis following the administration of IV contrast material. Portal venous phase of postcontrast imaging was obtained. Post processing coronal and sagittal reconstruction images were made from the axial images. IV contrast: Isovue-370 Bowel contrast: Water Comparison: Correlation is made with ultrasound dated November 11, 2008. FINDINGS: Lower Thorax: Mild emphysema is present. There is linear atelectasis or scarring within the left lower lobe. No pleural effusion. Note is made of lipomatous hypertrophy of the interatrial septum. Coronary arterial calcification is partially visualized. Liver and Biliary system: The liver is normal in size without focal lesion. The gallbladder is absent. Mild intrahepatic and moderate extrahepatic biliary ductal dilatation is identified with the common duct measuring up to 1.2 cm in diameter. No radiopaque biliary calculus is identified. Spleen: Unremarkable. Adrenal Glands and Kidneys: The adrenal glands and kidneys are unremarkable. Pancreas and Retroperitoneum: There is mild dilatation of the pancreatic duct within the head and proximal body. No pancreatic mass is identified and the pancreas is normal in caliber. There are no enlarged retroperitoneal lymph nodes. Aorta and Major Vessels: Aortoiliac vessels are normal caliber and contain moderate calcified plaque. Bowel, Mesentery and Peritoneal space: Large and small bowel is normal caliber with mild to moderate retained stool noted within segments of colon. No ascites is identified. Pelvis: The bladder is moderately distended. The uterus is normal in size. There are no enlarged pelvic lymph nodes. Abdominal wall and Osseous Structures: Serpiginous sclerosis and central lucency is seen involving the bilateral femoral heads compatible with AVN. No significant femoral head collapse is identified IMPRESSION 1. Mild intrahepatic and moderate extrahepatic biliary ductal dilatation status post cholecystectomy. There is also mild pancreatic ductal dilatation without pancreatic atrophy. No calcified biliary calculus or obstructing mass is identified. MRI/MRCP could be obtained for further evaluation if clinically indicated. 2. Mild to moderate retained stool throughout segments of colon without bowel obstruction. 3. Moderate dilatation of the bladder. 4. 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 Finalized by Kisha Santamaria M.D. on 10/29/2017 8:36 AM. Dictated by Kisha Santamaria M.D. on 10/29/2017 8:20 AM. Performing Organization Address City/[facility] Phone Number RAD RESULTS * URODYNAMIC STUDIES (10/29/2017) Narrative Performed At Performing Organization Address City/[facility]/[employer] Phone Number IN CLINIC * POC URINE DIPSTICK MANUAL READ (10/29/2017) Urine Glucose POC neg IN CLINIC Urine Bilirubin POC neg IN CLINIC Urine Ketone POC neg IN CLINIC Urine Specific [place] 1.005 IN CLINIC POC Urine Blood POC trace IN CLINIC Urine PH POC 6.0 IN CLINIC Urine Protein POC neg IN CLINIC Urine Urobilinogen POC 0.2 IN CLINIC Urine Nitrite POC neg IN CLINIC Urine Leukocytes POC trace IN CLINIC Color,UA yellow IN CLINIC Turbidity,UA clear IN CLINIC Specimen Urine - Urine Performing Organization Address City/[facility]/[employer] Phone Number IN CLINIC * TSH WITH FREE T4 REFLEX (10/03/2017 9:50 AM) TSH 2.770 0.35 - 5.00 MCU/ML [facility] Specimen Blood Performing Organization Address City/[facility]/[employer] [facility] Phone Number MAIN LAB [address] [place] [address] * LIPASE (10/03/2017 9:50 AM) Lipase 53 11 - 82 U/L [facility] Specimen Blood Performing Organization Address City/[facility] Phone Number MAIN LAB [address] [place] [address] * AMYLASE (10/03/2017 9:50 AM) Amylase 39 24 - 100 U/L [facility] Specimen Blood Performing Organization Address [facility] Phone Number [facility] [address] [place] [address] * COMPREHENSIVE METABOLIC PANEL (10/03/2017 9:50 AM) Sodium 142 137 - 147 MMOL/L [facility] Potassium 4.2 3.5 - 5.1 MMOL/L [facility] Chloride 108 98 - 110 MMOL/L [facility] Glucose 102 (H) 70 - 100 MG/DL [facility] Blood Urea Nitrogen 10 7 - 25 MG/DL [facility] Creatinine 0.65 0.4 - 1.00 MG/DL [facility] Calcium 9.6 8.5 - 10.6 MG/DL [facility] Total Protein 6.7 6.0 - 8.0 G/DL [facility] Total Bilirubin 0.3 0.3 - 1.2 MG/DL [facility] Albumin 4.1 3.5 - 5.0 G/DL [facility] Alk Phosphatase 101 25 - 110 U/L [facility] AST (SGOT) 13 7 - 40 U/L [facility] CO2 28 21 - 30 MMOL/L [facility] ALT (SGPT) 5 (L) 7 - 56 U/L [facility] Anion Gap 6 3 - 12 [facility] eGFR Non >60 >60 mL/min [facility] Comment: The eGFR is not validated for use in drug dosing adjustments.Continue to use estimated creatinine clearance per dosing reference text.Please contact the Clinical Pharmacist for questions. eGFR >60 >60 mL/min [facility] Comment: The eGFR is not validated for use in drug dosing adjustments.Continue to use estimated creatinine clearance per dosing reference text.Please contact the Clinical Pharmacist for questions. Specimen Blood Performing Organization Address City/[facility]/[employer] Phone Number [facility] [address] [place] [address] from Last 3 Months
--- OUTSIDE RECORDS SUMMARY | 2018-01-01 10:14 | XMS REPORT | Encounter Summary ---
Author Author [facility] Organization [facility] Address Unknown Phone Unavailable Care Team Providers Care Safety Professional Name Role Phone Apoorva Shane MD Unavailable Edgardo Torres MD Unavailable Amanda Bhandari Unavailable Montana Villasenor MD Unavailable Gilles Ness MD Unavailable Rain Tariq MD Unavailable Harika Hsu MD Unavailable Nayana Mccarty RN Unavailable Unavailable Symone Lee Unavailable Unavailable Crissy Grande MARRIAGE PERFORMER PCP Reason for Visit * Reason Comments Urinary Frequency Encounter Details Date Type Department Care Team Description 12/22/2017 Telephone [facility] Javier Hawk MD Urinary Frequency Physicians - Urology [address] [place] [address] [place] [address] [phone] [address] [place] [address] Social History Tobacco Use Types [...] encounter Miscellaneous Notes * Telephone Encounter - Javier Hawk MD - 12/22/2017 4:42 PM CDT The patient called in because she has been having frequency, urgency, suprapubic burning, leakage from her urethra and minimal urine output when she straight caths. The patient also indicates that she has been having bladder spasms that are associated with leakage of urine. I informed the patient that these symptoms likely represent bladder overactivity due to her MS, but could also represent a UTI in the setting of a recent cystoscopic procedure and neurogenic bladder. I informed the patient that she should submit a urine culture locally and fax the results to our office so that we can treat her if needed. Otherwise, I informed the patient that her symptoms should improve as her Botox takes effect. I gave the patient return precautions and she had no further questions. Javier Hawk MD in this encounter Plan of Treatment Date Type Specialty Care Team Description 01/02/2018 Surgery Benito Albrecht MD ESOPHAGOGASTRODUODENOSCOP [address] ENDOSCOPIC ULTRASOUND [address] [place] [address] [phone] 01/02/2018 Procedure Pass 01/02/2018 Hospital Benito Albrecht MD Weight loss Encounter [address] [place] [address] [phone] as of this encounter Visit Diagnoses Not on filein this encounter
--- OUTSIDE RECORDS SUMMARY | 2018-01-01 10:14 | XMS REPORT | Encounter Summary ---
Author Author [facility] Organization [facility] Address Unknown Phone Unavailable Care Team Providers Care Supervisor [employer] [place] Name Role Phone Apoorva Shane MD Unavailable Edgardo Torres MD Unavailable Amanda Bhandari Unavailable Montana Villasenor MD Unavailable Gilles Ness MD Unavailable Rain Tariq MD Unavailable Harika Hsu MD Unavailable Nayana Mccarty RN Unavailable Unavailable Symone Lee Unavailable Unavailable Crissy Grande NP PCP Encounter Details Date Type Department Care Team Description 12/24/2017 Ancillary Rad Outpatient, Radiologist Diagnosis unknown Orders [address] [place] [address] Social History Tobacco Use Types [...] impairment: No 10/29/2017 as of this encounter Plan of Treatment Date Type Specialty Care Team Description 01/02/2018 Surgery Benito Albrecht MD ESOPHAGOGASTRODUODENOSCOP [address] ENDOSCOPIC ULTRASOUND [address] [place] [address] [phone] 01/02/2018 Procedure Pass 01/02/2018 Hospital Benito Albrecht MD Weight loss Encounter [address] [facility] [address] [place] [address] [phone] as of this encounter Results * MRI T-SPINE EXTERNAL IMAGING (12/19/2017) Narrative Performed At This order has been auto finalized and does not contain a result. in this encounter Visit Diagnoses Diagnosis Diagnosis unknown Other unknown and unspecified cause of morbidity or mortality
--- OUTSIDE RECORDS SUMMARY | 2018-01-01 10:14 | XMS REPORT | Encounter Summary ---
Author Author [facility] Organization [facility] Address Unknown Phone Unavailable Care Team Providers Care Director Of Quality Name Role Phone Apoorva Shane MD Unavailable Edgardo Torres MD Unavailable Amanda Bhandari Unavailable Montana Villasenor MD Unavailable Gilles Ness MD Unavailable Rain Tariq MD Unavailable Harika Hsu MD Unavailable Nayana Mccarty RN Unavailable Unavailable Symone Lee Unavailable Unavailable Crissy Grande SPECIALTY PERSON PCP Reason for Visit * Reason Comments General Question Encounter Details Date Type Department Care Team Description 12/17/2017 Telephone [facility] Balbina Garcia MD General Question Physicians - Urology [address] Ortho and Medical [address] [place] [address] [address] [facility] [phone] [place] [address] Social History Tobacco Use Types [...] encounter Miscellaneous Notes * Telephone Encounter - Hans Broussard LPN - 12/18/2017 2:05 PM CDT Sent order for more catheters to [employer]. She uses a size 10 and her company is [employer]. * Telephone Encounter - Hans Broussard LPN - 12/18/2017 9:07 AM CDT Called patient back regarding what medical supply company she uses for her catheters and what size. She also called yesterday afternoon and stated she wasn't getting any urine return when with self catheterization. Asked patient to return call. * Telephone Encounter - Angelic Prince RN - 12/17/2017 9:41 AM CDT Pt called about catheter order. She says she uses the smallest catheters and forgot what brand she has used previously. Told her I will let Hans know and she will send out the order for you. in this encounter Plan of Treatment Date Type Specialty Care Team Description 01/02/2018 Surgery Benito Albrecht MD ESOPHAGOGASTRODUODENOSCOP [address] ENDOSCOPIC ULTRASOUND [address] [place] [address] [phone] 01/02/2018 Procedure Pass 01/02/2018 Hospital Benito Albrecht MD Weight loss Encounter [address] [place] [address] [phone] as of this encounter Visit Diagnoses Not on filein this encounter
--- OUTSIDE RECORDS SUMMARY | 2018-01-01 10:15 | XMS REPORT | Encounter Summary ---
Author Author [facility] Organization [facility] Address Unknown Phone Unavailable Care Team Providers Care Supervisor Hand Silvering Name Role Phone Apoorva Shane MD Unavailable Edgardo Torres MD Unavailable Amanda Bhandari Unavailable Montana Villasenor MD Unavailable Gilles Ness MD Unavailable Rain Tariq MD Unavailable Harika Hsu MD Unavailable Nayana Mccarty RN Unavailable Unavailable Symone Lee Unavailable Unavailable Crissy Grande NP PCP Encounter Details Date Type Department Care Team Description 12/16/2017 Procedure Pass Main Operating Room [address] [address] Social History Tobacco Use Types Packs/Day [...] [address] ENDOSCOPIC ULTRASOUND [address] [place] [address] [phone] 01/02/2018 Procedure Pass 01/02/2018 Hospital Benito Albrecht MD Weight loss Encounter [address] [place] [address] as of this encounter Visit Diagnoses Not on filein this encounter
--- OUTSIDE RECORDS SUMMARY | 2018-01-01 10:15 | XMS REPORT | Encounter Summary ---
Author Author [facility] Organization [facility] Address Unknown Phone Unavailable Care Team Providers Care Industrial [address] Magistrate Name Role Phone Apoorva Shane MD Unavailable Edgardo Torres MD Unavailable Amanda Bhandari Unavailable Montana Villasenor MD Unavailable Gilles Ness MD Unavailable Rain Tariq MD Unavailable Harika Hsu MD Unavailable Nayana Mccarty RN Unavailable Unavailable Symone Lee Unavailable Unavailable Crissy Grande PC SUPPORT SPECIALIST PCP Reason for Visit * Reason Comments General Question Encounter Details Date Type Department Care Team Description 12/16/2017 Telephone [facility] Balbina Garcia MD General Question Physicians - Urology [address] Ortho and Medical [address] [place] [address] [address] [facility] [phone] [place] [address] Social History Tobacco Use Types [...] encounter Miscellaneous Notes * Telephone Encounter - Kisha Price RN - 12/16/2017 4:21 PM CDT Pt calling to ask for Dr. Garcia's nurse, states she uses the "smallest catheter" in size and would like those ordered and a return call when this is done. Routing to [email or web address] for ordering in this encounter Plan of Treatment Date Type Specialty Care Team Description 01/02/2018 Surgery Benito Albrecht MD ESOPHAGOGASTRODUODENOSCOP [address] ENDOSCOPIC ULTRASOUND [address] [place] [address] [phone] 01/02/2018 Procedure Pass 01/02/2018 Hospital Benito Albrecht MD Weight loss Encounter [address] [place] [address] [phone] as of this encounter Visit Diagnoses Not on filein this encounter
--- OUTSIDE RECORDS SUMMARY | 2018-01-01 10:15 | XMS REPORT | Encounter Summary ---
Author Author [facility] Organization [facility] Address Unknown Phone Unavailable Care Team Providers Care Technical Aide Name Role Phone Apoorva Shane MD Unavailable Edgardo Torres MD Unavailable Amanda Bhandari Unavailable Montana Villasenor MD Unavailable Gilles Ness MD Unavailable Rain Tariq MD Unavailable Harika Hsu MD Unavailable Nayana Mccarty RN Unavailable Unavailable Symone Lee Unavailable Unavailable [facility] [place] [facility] COORDINATOR PCP Reason for Visit * Auth/Cert Status Reason Specialty Diagnoses / Referred By Referred To Procedures Contact Contact Diagnoses Neurogenic bladder Neurogenic bladder [N31.9] P rocedures [facility] CYSTOURETHROSCOP Y INJ CHEMODENERVATION BLADDER CYSTOSCOPY INJECTION NEUROTOXIN Encounter Details Date Type Department Care Team Description 12/16/2017 Surgery Main Operating Room Balbina Garcia MD CYSTOSCOPY, INJECTION [facility] 2nd fl [address] BOTOX (300 UNITS) [address] [place] [address] [place] [address] [phone] Social History Tobacco Use Types Packs/Day Years [...] F) 12/16/2017 10:27 AM CDT Respiratory Rate - - Oxygen Saturation 92% 12/16/2017 10:15 AM CDT Inhaled Oxygen - - Concentration Weight 73.8 kg (162 lb 12.8 oz) 12/16/2017 6:10 AM CDT Height 160 cm (5' 3") 12/16/2017 6:10 AM CDT Body Mass Index 28.84 12/16/2017 6:10 AM CDT in this encounter Functional Status Functional Status Response [...] impairment: No 10/29/2017 as of this encounter Discharge Instructions * Patient Instructions - Latrice Awad RN - 12/16/2017 10:27 AM CDT Formatting of this note may be different from the original. Discharge Instructions: After Your Surgery Youve just had surgery. During surgery, you were given medicine called anesthesia to keep you relaxed and free of pain. After surgery, you may have some pain or nausea. This is common. Here are some tips for feeling better and getting well after surgery. Stay on schedule with your medicine. Going home Your healthcare provider will show you how to take care of yourself when you go home. He or she will also answer your questions. Have an adult family member or friend drive you home. For the first 24 hours after your surgery: Do not drive or use heavy equipment. Do not make important decisions or sign legal papers. Do not drink alcohol. Have someone stay with you, if needed. He or she can watch for problems and help keep you safe. Be sure to go to all follow-up visits with your healthcare provider. And rest after your surgery for as long as your healthcare provider tells you to. Coping with pain If you have pain after surgery, pain medicine will help you feel better. Take it as told, before pain becomes severe. Also, ask your healthcare provider or pharmacist about other ways to control pain. This might be with heat, ice, or relaxation. And follow any other instructions your surgeon or nurse gives you. Tips for taking pain medicine To get the best relief possible, remember these points: Pain medicines can upset your stomach. Taking them with a little food may help. Most pain relievers taken by mouth need at least 20 to 30 minutes to start to work. Taking medicine on a schedule can help you remember to take it. Try to time your medicine so that you can take it before starting an activity. This might be before you get dressed, go for a walk, or sit down for dinner. Constipation is a common side effect of pain medicines. Call your healthcare provider before taking any medicines such as laxatives or stool softeners to help ease constipation. Also ask if you should skip any foods. Drinkinglots of fluids andeating foodssuch as fruits and vegetables that are high in fiber can also help. Remember, do not take laxatives unless your surgeon has prescribed them. Drinking alcohol and taking pain medicine can cause dizziness and slow your breathing. It can even be deadly. Do not drink alcohol while taking pain medicine. Pain medicine can make you react more slowly to things. Do not drive or run machinery while taking pain medicine. Your healthcare providermay tell you to take acetaminophen to help ease your pain. Ask him or her how much you are supposed to take each day. Acetaminophen or other pain relievers may interact with your prescription medicines or other uran-qcw-pgwdwbr (OTC) medicines. Some prescription medicines have acetaminophen and other ingredients.Using both prescription and OTC acetaminophenfor paincan cause you to overdose. Readthe labels on your OTC medicineswith care. This will help youto clearly know the list of ingredients, how much to take, and anywarnings. It may also help you not take too muchacetaminophen.If you have questions or do not understand the information, ask your pharmacist or healthcare provider to explain it to you before you take the OTC medicine. Managing nausea Some people have an upset stomach after surgery. This is often because of anesthesia, pain, or pain medicine, or the stress of surgery. These tips will help you handle nausea and eat healthy foods as you get better. If you were on a special food plan before surgery, ask your healthcare provider if you should follow it while you get better. These tips may help: Do not push yourself to eat. Your body will tell you when to eat and how much. Start off with clear liquids and soup. They are easier to digest. Next try semi-solid foods, such as mashed potatoes, applesauce, and gelatin, as you feel ready. Slowly move to solid foods. Dont eat fatty, rich, or spicy foods at first. Do not force yourself to have 3 large meals a day. Instead eat smaller amounts more often. Take pain medicines with a small amount of solid food, such as crackers or toast, to avoid nausea. Call your surgeon if You still have pain an hour after taking medicine. The medicine may not be strong enough. You feel too sleepy, dizzy, or groggy. The medicine may be too strong. You have side effects like nausea, vomiting, or skin changes, such as rash, itching, or hives. If you have obstructive sleep apnea You were given anesthesia medicine during surgery to keep you comfortable and free of pain. After surgery, you may have more apnea spells because of this medicine and other medicines you were given. The spells may last longer than usual. At home: Keep using the continuous positive airway pressure (CPAP) device when you sleep. Unless your healthcare provider tells you not to, use it when you sleep, day or night. CPAP is a common device used to treat obstructive sleep apnea. Talk with your provider before taking any pain medicine, muscle relaxants, or sedatives. Your provider will tell you about the possible dangers of taking these medicines. Date Last Reviewed: 03/07/201619997363-7240 [employer]. [address] [place] [address], [place] [address]. All rights reserved. This information is not intended as a substitute for professional medical care. Always follow your healthcare professional's instructions. Self-Catheterization for Women Self-catheterization helps you empty your bladder if it doesnt empty by itself. It also helps if your bladder doesnt empty all the way. Follow the steps below. This is what youll need Soap and warm water, or a moist towelette Water-soluble lubricating jelly (not petroleum jelly) Clean catheter (your provider will tell you the correct type and size) Mirror Toilet or basin Lubricate catheter Insert catheter Empty urine Step 1. Preparation Gather all equipment needed. Arrange clothing so it is out of the way. Wash your hands and your genitals. Use warm, soapy water or a moist towelette to clean your urethral opening. The urethra is the tube that drains urine from the bladder. Always wash from front to back. Step 2. Lubricate the catheter Lubricate2 inches to 4inches of the catheter tip. Some catheter kits contain lubricating solution inside the package. Place the other end in the toilet or basin. Use a measuring urinal if your provider wants you to measure your urine. Step 3. Insert the catheter Spread the labia. Find the urethra with a mirror, or with your index finger. The urethra is located just above the vaginal opening. Slowly insert the catheter into your urethra about 2 to 4 inches. If it doesnt go in, take a deep breath and bear down as if trying to urinate. Step 4. Empty urine When the urine starts flowing, gently advance an additional one-half to one inch. When the urine stops flowing, slowly remove the catheter. Step 5. Wash the catheter Wash the catheter in mild soap and water. Rinse it well. Run water through it. Then let it air-dry. Certain catheters are single use only and should be thrown away after each use. Wash your hands with soap and water. If you use a basin, wash it out. Date Last Reviewed: 03/07/201619996179-3412 [employer]. [address] [place] [address]. All rights reserved. This information is not intended as a substitute for professional medical care. Always follow your healthcare professional's instructions. * Pre-Anesthesia Medication Instructions - Mary Ann Philippe RN - 11/21/2017 1: 42 PM CDT Formatting of this note may be different from the original. YOUR MEDICATIONS: albuterol (VENTOLIN HFA) 90 mcg/actuation inhaler Inhale 2 puffs by mouth into the lungs daily. Shake well before use. apixaban (ELIQUIS) 5 mg tab tablet Take 5 mg by mouth twice daily. ARIPiprazole (ABILIFY) 10 mg tablet Take 10 mg by mouth daily. baclofen (LIORESAL) 20 mg tablet Take 20 mg by mouth three times daily. budesonide/formoterol (SYMBICORT) 160/4.5 mcg HFAA inhalation Inhale 2 Puffs by mouth daily. cetirizine (ZYRTEC) 10 mg tablet Take 10 mg by mouth every morning. clonazePAM (KLONOPIN) 1 mg tablet Take 1 mg by mouth daily as needed. colesevelam(+) (WELCHOL) 625 mg tablet [...] capsule by mouth every 7 days. Sundays fluticasone (FLONASE) 50 mcg/actuation nasal spray Apply 1-2 sprays to each nostril as directed daily as needed. Shake bottle gently before using. gabapentin (NEURONTIN) 400 mg capsule Take 600 mg by mouth three times daily. memantine,+, (NAMENDA) 10 mg tablet Take 10 mg by mouth daily. metoclopramide (REGLAN) 10 mg tablet Take 1 tablet before meals mirtazapine (REMERON) 45 mg tablet Take 45 [...] tablet Take 80 mg by mouth daily. ranitidine(+) (ZANTAC) 300 mg tablet Take one tablet by mouth midday and one at bedtime. rifAXIMin (XIFAXAN) 550 mg tablet Take 550 [...] 150 mg by mouth at bedtime daily. YOUR MEDICATION INSTRUCTIONS FOR SURGERY: Before surgery Stop the following vitamins, herbals, and natural supplements 14 days before surgery: Multivitamin Stop the following medications 7 days before surgery: Anti-inflammatory medications such as ibuprofen (Advil, Motrin) and naproxen (Aleve) You may use acetaminophen (Tylenol) Please follow these instructions regarding your blood thinner medications: Eliquis - per Dr. Garcia - please hold for 7 days and verify with prescribing physician Morning of surgery On the morning of surgery, do NOT take these medications: Remaining vitamins/supplements Ointments/creams/lotions Welchol Lomotil Vitamin D Rifaximin On the morning of surgery, take ONLY these medications with a sip (1-2 ounces) of water: Inhalers as usual Abilify Baclofen Zyrtec Clonazepam Diltiazem Aricept Gabapentin Reglan Namenda Oxybutynin Pantoprazole Ranitidine Other information Before surgery, please contact BELINDA Reese with any medicine updates or questions. E-mail: [email or web address] Before going home from the hospital, please ask your doctor when you should re- start your medicines that were stopped before surgery. * Pre-Anesthesia Patient Instructions - Mary Ann Philippe RN - 11/21/2017 1:39 PM CDT GENERAL INFORMATION Before you come to the hospital Make arrangements for a responsible adult to drive you home and stay with you for 24 hours following surgery. Bath/Shower Instructions Take a bath or shower with antibacterial soap the night before or the morning of your procedure. Use clean towels. Put on clean clothes after bath or shower. Avoid using lotion and oils. Sleep on clean sheets if bath or shower is done the night before procedure. Leave money, credit cards, jewelry, and any other valuables at home. The [facility] is not responsible for the loss or breakage of personal items. Remove nail italian, makeup and all jewelry (including piercings) before coming to the hospital. The morning of your procedure: brush your teeth and tongue do not smoke do not shave the area where you will have surgery What to bring to the hospital ID/ Insurance Card Abstract Maker card Official documents for legal guardianship Copy of your Living Will, Advanced Directives, and/or Durable Power of Customs Opener Verifier Packer Small bag with a few personal belongings Cases for glasses/hearing aids/contact lens (bring solutions [...] doctor you need to cancel your procedure You will receive a call with your surgery arrival time from between 2:30pm and 4:30pm the last business day before your procedure. If you do not receive a call, please call [phone] before 4:30pm or [phone] after 4:30pm. Notify us at [facility]: if you need to cancel your procedure if you are going to be late Arrival at the [facility] [address] [place] [address] Park in the [address] Park[address]age, located directly across from the main entrance to the hospital. Apparel Designer parking is available from 7 AM to 4 PM Friday through Friday. Enter through the ground floor [facility] entrance and check in at the Information Desk in the lobby. They will validate your parking ticket and direct you to the next location. If you are a woman between the ages of 10 and 55, and have not had a hysterectomy, you will be asked for a urine sample prior to surgery. Please do not urinate before arriving in the Surgery Waiting Room. Once there, check in and let the attendant know if you need to provide a sample. in this encounter Medications at Time of [...] tablet bedtime daily. as of this encounter Progress Notes * Angella Eason, BELINDA - 12/16/2017 11:00 AM CDT Discharge instructions given to patient and family member. All questions answered at this time, no further questions. Family member verbalized she will be staying with patient over night. * Latrice Awad, BELINDA - 12/16/2017 10:15 AM CDT Patient able to straight cath self as instructed by Dr. Olivares. OK to continue Eliquis at home per [place]. * Mary Ann Philippe RN - 11/21/2017 12:53 PM CDT PAC phone triage completed with patient for surgery on 12/16/[address] Garcia. Medications, allergies and medical history reviewed and updated in chart. Had last surgery on 06/13/17 and denies changes to medical or functional status. She stats that her FBG averages 100-105. She uses a walker for ambulation and states that she does get LIU but that is her baseline. She states that she uses O2 at night but also sometimes during the day when she is moving around frequently. Denies chest pain, palpitations or URI symptoms. No PAC visit scheduled. Preop and medication instructions reviewed with patient. No vitamins or supplements for 14 days and no NSAIDS for 7 days before surgery. She was told by Dr. Garcia to hold Eliquis for 7 days and will check with the prescribing physician to verify ok to hold. NPO after 11 pm the night before surgery but ok to drink water until 2 hours before arrival at hospital. Patient verbalized understanding and copy of instructions mailed to her in this encounter H&P Notes * Balbina Garcia MD - 12/16/2017 6:29 AM CDT Formatting of this note may be different from the original. Admission History and Physical Examination Name: Nara Huizar Admission Date: 12/16/2017 Assessment/Plan: Principal Problem: Neurogenic bladder To OR for Cystoscopy, Intravesical Botox Injection Risk and benefits of operative procedure have been discussed in detail with the patient in clinic, and after all questions were answered, the patient elected to proceed with surgery. Patient consented. Surgical planning directed by Dr. Jose Kelly MD [facility] home economics teacher with questions. __ History of Present Illness Nara Huizar is a 62 y.o. female with a history of spinal MS, lower urinary tract symptoms, primarily urinary urgency after a prior urethral sling placement by Dr. Yeh 3 years ago. Ms. Huizar also has a history of microscopic and grosshematuria and has had a complete negative workup. She was last seen by Dr. Garcia on 10/29/17 for evaluation. At that time she reported urgency, frequency and PIBh5xcken. Denied RICO. She endorsed having to crede and lean forward to empty, with straining since her sling. UDSdemonstrated elevated PVR at 450 ml, no detrusor overactivity, decreased sensation, and high voiding pressure, but no leakage. She underwent a urethrolysis and sling excision on 06/13/17. Postop her straining and retention resolved, Yet, she was still bothered by urgency and UUI. She was restarted on oxybutynin xl 10mg. She additionally reportedupcoming appointment with her neurologist and plans to restart MS meds. She returns and has not had follow-up re her MS. Recently has had poorly controlled DM, yet started a new med. She now reports UUI>RICO. Repeat UDS shows large capacity; incomplete emptying; low pressure DO. +LPP; hypotonic. There is much improved emptying from prior to sling excision. Yet, continued incontinence and some incomplete emptying. Options were discussed and patient elected to proceed with Botox injection with CIC q3h. She presents today for her procedure. Today, patient denies changes in health since seen in clinic. No UTIs, fevers, nausea, vomiting, chest pain or SoB. Past Medical History: Diagnosis Date Acid reflux controlled by protonix Afib ([facility]) Alzheimer disease 2004 Anxiety disorder Arthritis Asthma Colon polyps COPD (chronic obstructive pulmonary disease) ([facility]) Depression DM (diabetes mellitus) ([facility]) last A1C 5 Dyslipidemia Gastroparesis Generalized headaches Heart disease Hyperlipemia Irritable bowel disease Irritable bowel syndrome with diarrhea On supplemental oxygen therapy 3L/NC per day, 5L/NC per night Stroke ([facility]) most recent 2014 6 total strokes, right facial drooping, left sided weakness and assisted memory loss Thyroid disorder Urinary tract infection Past Surgical History: Procedure Laterality Date HX CHOLECYSTECTOMY 1973 with appy HX TUBAL LIGATION 1982 COLONOSCOPY -2014 [place] BLADDER SURGERY 2016 sling [facility] SIGMOIDOSCOPY FLX DX W/COLLJ SPEC BR/WA IF PFRMD N/A 09/26/2015 SIGMOIDOSCOPY DIAGNOSTIC to rule out ulcerative colitis. performed by Edgardo Torres MD at ENDO/GI [facility] SIGMOIDOSCOPY FLX W/BIOPSY SINGLE/MULTIPLE 09/26/2015 SIGMOIDOSCOPY BIOPSY performed by Edgardo Torres MD at ENDO/GI HX CARPAL TUNNEL RELEASE Bilateral 2017 and "nerve damage" repair per elbows VA RMVL/REVJ SLING STRESS INCONTINENCE N/A 06/13/2017 URETHROLYSIS, INCISION OF URETHRAL SLING, CYSTOSCOPY performed by Balbina Garcia MD at Main OR/Periop KNEE SURGERY 07/16/2017 ELBOW SURGERY 09/08/2017 ABLATION OF DYSRHYTHMIC FOCUS ? 2016 or 2017 done at [facility] EPIDURAL BLOCK HX CERVICAL FUSION 2004 to 2014 has had a total of 4 revisions per patient HX HEART CATHETERIZATION 2012 and 2014 Family History Problem Relation Age of Onset Cancer-Breast Mother Heart problem Mother Brain Tumor Father Cancer Father 65 Brain tumor Heart Attack Brother Heart Disease Brother Heart Surgery Brother Cancer-Breast Maternal Grandmother Alzheimer's Maternal Grandfather Cancer-Breast Paternal Grandmother Cancer Paternal Grandfather Heart problem Paternal Grandfather Cancer-Lung Paternal Grandfather Celiac Disease Neg Hx Cancer-Colon Neg Hx Colon Polyps Neg Hx Social History Social History Marital status: Spouse name: N/A Number of children: N/A Years of education: N/A Occupational History Disabled Social History Main Topics Smoking status: Current Every Day Smoker Packs/day: 0.25 Years: 46.00 Types: Cigarettes Smokeless tobacco: Never Used Alcohol use No Drug use: No Sexual activity: No Other Topics Concern Not on file Social History Narrative No narrative on file Immunizations (includes history and patient reported): There is no immunization history on file for this patient. Allergies: Ibuprofen; Triple antibiotic [euutt-aymwl-qutemaa-pramoxine]; and Naproxen sodium Medications: Prescriptions Prior to Admission Medication Sig albuterol (VENTOLIN HFA) 90 mcg/actuation inhaler Inhale 2 puffs by mouth into the lungs daily. Shake well before use. apixaban (ELIQUIS) 5 mg tab tablet Take 5 mg by mouth twice daily. ARIPiprazole (ABILIFY) 10 mg tablet Take 10 mg by mouth daily. baclofen (LIORESAL) 20 mg tablet Take 20 mg by mouth three times daily. budesonide/formoterol (SYMBICORT) 160/4.5 mcg HFAA inhalation Inhale 2 Puffs by mouth daily. cetirizine (ZYRTEC) 10 mg tablet Take 10 mg by mouth every morning. clonazePAM (KLONOPIN) 1 mg tablet Take 1 mg by mouth daily as needed. colesevelam(+) (WELCHOL) 625 mg tablet [...] capsule by mouth every 7 days. Sundays fluticasone (FLONASE) 50 mcg/actuation nasal spray Apply 1-2 sprays to each nostril as directed daily as needed. Shake bottle gently before using. gabapentin (NEURONTIN) 400 mg capsule Take 600 mg by mouth three times daily. memantine,+, (NAMENDA) 10 mg tablet Take 10 mg by mouth daily. metoclopramide (REGLAN) 10 mg tablet Take 1 tablet before meals mirtazapine (REMERON) 45 mg tablet Take 45 [...] tablet Take 80 mg by mouth daily. ranitidine(+) (ZANTAC) 300 mg tablet Take one tablet by mouth midday and one at bedtime. rifAXIMin (XIFAXAN) 550 mg tablet Take 550 [...] 150 mg by mouth at bedtime daily. ROS A 14 point Review of System was performed and the pertinent positives and negatives are documented in the HPI. Physical Exam Vital Signs: Last Filed In 24 Hours Vital Signs: 24 Hour Range BP: 110/70 (12/16 609) Temp: (P) 36.7 C (98.1 F) (12/16 609) Pulse: 94 (12/16 609) Respirations: 23 PER MINUTE (12/16 609) SpO2: 97 % (12/16 609) O2 Delivery: (P) Nasal Cannula (12/16 609) SpO2 Pulse: 94 (12/16 609) BP: (110)/(70) Temp: [36.7 C (98.1 F)] Pulse: [94] Respirations: [23 PER MINUTE] SpO2: [97 %] O2 Delivery: (P) Nasal Cannula Intensity Pain Scale (Self Report): (P) 8 (12/16/17609) Lab/Radiology/Other Diagnostic Tests: 24-hour labs: Results for orders placed or performed during the hospital encounter of (from the past 24 hour(s)) POC GLUCOSE Collection Time: 12/16/17 6:26 AM Result Value Ref Range Glucose, POC 97 70 - 100 MG/DL POC Glucose (Download): 97 (12/16/17625) No pertinent radiology. Krys Kelly MD ATTESTATION I personally performed the peters portions of the E/M visit, discussed case with resident and concur with resident documentation of history, physical exam, assessment, and treatment plan unless otherwise noted. Staff name: Balbina Garcia MD in this encounter Miscellaneous Notes * Procedures (Immed Post or Bedside) - Balbina Garcia MD - 12/16/2017 9: 11 AM CDT Formatting of this note may be different from the original. Brief Operative Note Name: Nara Huizar is a 62 y.o. female : 1955 DATE OF OPERATION: 12/16/2017 Date: 12/16/2017 Preoperative Dx: Neurogenic bladder [N31.9] Post-op Diagnosis * Neurogenic bladder [N31.9] Procedure(s): CYSTOSCOPY, INJECTION BOTOX (300 UNITS) Anesthesia Type: General Surgeon(s) and Role: * Balbina Garcia MD - Primary * Cristofer Olivares MD - Resident - Assisting Findings: 300units of botox injected. Estimated Blood Loss: No blood loss documented. Specimen(s) Removed/Disposition: * No specimens in log * Complications: None Implants: None Drains: None Disposition: PACU - stable Cristofer Olivares MD Pager [phone] ATTESTATION I performed this procedure with a resident. Staff name: Balbina Garcia MD * Operative Report (Direct Entry) - Balbina Garcia MD - 12/16/2017 8:51 AM CDT Formatting of this note may be different from the original. OPERATIVE REPORT Name: Nara Huizar is a 62 y.o. female : 1955 DATE OF OPERATION: 12/16/2017 Surgeon(s) and Role: * Balbina Garcia MD - Primary * Cristofer Olivares MD - Resident - Assisting Preoperative Diagnosis: Neurogenic bladder [N31.9] Post-op Diagnosis * Neurogenic bladder [N31.9] Procedure(s): CYSTOSCOPY, INJECTION BOTOX (300 UNITS) Anesthesia Type: General Indications For Procedure: 62yoF with MS who is undergoing botox injection of the bladder for the first time. She performs CIC at home. Description and Findings of Operative Procedure: After obtaining informed consent, patient was brought back to the operating room and placed in the supine position. General anesthesia was induced smoothly without complication. A proper timeout was performed confirming proper patient, procedure, and laterality. Patient was moved to the dorsal lithotomy position. Patient was prepped and draped in the usual sterile fashion. All instruments were sterile. We began by placing the injection scope into the urethra and this is passed into the bladder with ease. 360 panendoscopy the bladder performance revealed no tumors stones or defects. There was no trabeculation noted. We then began to inject her Botox and were careful not to inject any large vessels. We used 300units of Botox injected in 5 rows of 6. Patient tolerated this well afterwards there is noted to be hemostasis. The bladder was drained and patient was awoken from anesthesia. Patient was transferred to the PACU in stable condition. Dr. Garcia was present scrubbed and directed all peters portions of procedure. Estimated Blood Loss: minimal Specimen(s) Removed/Disposition: none Cristofer Olivares MD Pager [phone] ATTESTATION I performed this procedure with a resident. Staff name: Balbina Garcia MD in this encounter Plan of Treatment Date Type Specialty Care Team Description 01/02/2018 Surgery Benito Albrecht MD ESOPHAGOGASTRODUODENOSCOP [address] ENDOSCOPIC ULTRASOUND [address] [place] [address] 01/02/2018 Procedure Pass 01/02/2018 Hospital Benito Albrecht MD Weight loss Encounter [address] [place] [address] as of this encounter Procedures Procedure Name Priority Date/Time Associated Diagnosis Comments ECG-SCAN 12/17/2017 Results for this 12:08 PM CDT procedure are in the results section. POC GLUCOSE 12/16/2017 Results for this 9:30 AM CDT procedure are in the results section. CYSTOSCOPY INJECTION 12/16/2017 Neurogenic bladder NEUROTOXIN 8:30 AM CDT Special Needs 10/31 PER CHANGE FORM CASE MOVED FROM 12/02 TO 12/16 - Tay GUERRA RN ([id number]) POC GLUCOSE 12/16/2017 Results for this 6:26 AM CDT procedure are in the results section. in this encounter Results * ECG-SCAN (12/17/2017 12:08 PM) Narrative Performed At Ordered by an unspecified provider. * POC GLUCOSE (12/16/2017 9:30 AM) Glucose, POC 93 70 - 100 MG/DL [facility] Performing Organization Address City/[facility]/Zipcode Phone Number [facility] [address] [place] [address] * POC GLUCOSE (12/16/2017 6:26 AM) Glucose, POC 97 70 - 100 MG/DL [facility] Performing Organization Address City/[facility]/Zipcode Phone Number MAIN LAB [address] [place] [address] in this encounter Visit Diagnoses Diagnosis Neurogenic bladder Neurogenic bladder, NOS Admitting Diagnoses Diagnosis Neurogenic bladder - Neurogenic bladder [N31.9] Neurogenic bladder, NOS Administered Medications Medication Order MAR Action Action Date Dose Rate Site acetaminophen (TYLENOL) tablet 1,000 mg Given 12/16/2017 1,000 mg 1,000 mg, Oral, ONCE, 1 dose, Fri 08:11 CDT 12/16/17 at 0800, TOTAL ACETAMINOPHEN DOSE NOT TO EXCEED 4GM DAILY botulinum toxin A (BOTOX) injection Given 12/16/2017 300 Units INTRA-PROCEDURE MED, Starting Fri 08:56 CDT 12/16/17 at 0856, Until Fri12/16/17 at 1308, Intra-op fentaNYL citrate PF (SUBLIMAZE) Given 12/16/2017 25 mcg injection 25 mcg 09:29 CDT 25 mcg, Intravenous, EVERY 5 MIN PRN, Starting Fri12/16/17 at 0858, Until Fri12/16/17 at 1308, Pain Injectable, For Pain Score < 4, Maximum total dose of 200 mcg Hold for RR < 10 lactated ringers infusion Given - New 12/16/2017 1,000 mL 20 mL/hr 1,000 mL, 1,000 mL, Intravenous, at 20 Bag 06:20 CDT mL/hr, CONTINUOUS, Starting Fri12/16/17 at 0545, Until Fri12/16/17 at 1308, Pre-Op lidocaine (XYLOCAINE) 2 % jelly Given 12/16/2017 20 mL (URO-JET) 08:59 CDT INTRA-PROCEDURE MED, Starting Fri12/16/17 at 0859, Until Fri12/16/17 at 1308, Intra-op lidocaine PF 1% (10 mg/mL) injection 0.1-2 mL 0.1-2 mL, Injection, NEEDED, Starting Fri12/16/17 at 0642, Until Fri12/16/17 at 1308, Other..., for IV insertion, Pre-Op oxyCODONE (ROXICODONE, OXY-IR) tablet Given 12/16/2017 10 mg 5-10 mg 09:36 CDT 5-10 mg, Oral, ONCE PRN, 1 dose, Starting Fri12/16/17 at 0858, Until Fri12/16/17 at 2359, Pain PO, For Pain Score <4, PACU (only) sodium chloride 0.9 % irrigation bag Given 12/16/2017 3,000 mL INTRA-PROCEDURE MED, Starting Tue 08:51 CDT 12/16/17 at 0851, Until 12/16/17 at 1308, Intra-op in this encounter
--- OUTSIDE RECORDS SUMMARY | 2018-01-01 10:15 | XMS REPORT | Encounter Summary ---
Author Author [facility] Organization [facility] Address Unknown Phone Unavailable Care Team Providers Care Manager Route Name Role Phone Apoorva Shane MD Unavailable Edgardo Torres MD Unavailable Amanda Bhandari Unavailable Montana Villasenor MD Unavailable Gilles Ness MD Unavailable Rain Tariq MD Unavailable Harika Hsu MD Unavailable Nayana Mccarty RN Unavailable Unavailable Symone Lee Unavailable Unavailable Crissy Grande DRAFTING ENGINEER PCP Reason for Visit * Reason Comments General Question Encounter Details Date Type Department Care Team Description 12/16/2017 Telephone [facility] Balbina Garcia MD General Question Physicians - Urology [address] Ortho and Medical [address] [place] [address] [address] [facility] [phone] [place] [address] Social History Tobacco Use Types [...] Miscellaneous Notes * Telephone Encounter - Hans Broussard, SENIOR ESCROW OFFICER - 12/16/2017 4:05 PM CDT Received message from Dr. Garcia that patient needed cath supplies. Called patient to see what company and size catheters she uses, no answer, left voicemail for her to return call. in this encounter Plan of Treatment Date Type Specialty Care Team Description 01/02/2018 Surgery Benito Albrecht MD ESOPHAGOGASTRODUODENOSCOP [address] ENDOSCOPIC ULTRASOUND [address] [place], [place] [id number] 01/02/2018 Procedure Pass 01/02/2018 Hospital Benito Albrecht MD Weight loss Encounter [address] [place], [place] [id number] as of this encounter Visit Diagnoses Not on filein this encounter
--- OUTSIDE RECORDS SUMMARY | 2018-01-01 10:15 | XMS REPORT | Encounter Summary ---
Author Author [facility] Organization [facility] Address Unknown Phone Unavailable Care Team Providers Care Salvage Mend Worker Name Role Phone Apoorva Shane MD Unavailable Edgardo Torres MD Unavailable Amanda Bhandari Unavailable Montana Villasneor MD Unavailable Gilles Ness MD Unavailable Rani Tariq MD Unavailable Harika Hsu MD Unavailable Nayana Mccarty RN Unavailable Unavailable Symone Lee Unavailable Unavailable Crissy Grande WIRE STOCKKEEPER PCP Reason for Visit * Auth/Cert Status Reason Specialty Diagnoses / Referred By Referred To Procedures Contact Contact Diagnoses Neurogenic bladder Neurogenic bladder [N31.9] P rocedures [place] CYSTOURETHROSCOP Y INJ CHEMODENERVATION BLADDER CYSTOSCOPY INJECTION NEUROTOXIN Encounter Details Date Type Department Care Team Description 12/16/2017 Anesthesia Main Operating Room Livier Mroan, Event Main [facility] 2nd me [address] [facility] [address] [place] [address] [place] [address] [phone] Anesthesia Record Procedure Name Responsible Anesthesia Start Time Anesthesia Stop Time Anesthesiologist CYSTOSCOPY, INJECTION Estefani Gomez MD 12/16/17 0825 12/16/17 0918 BOTOX (300 UNITS) (N/A Bladder) Date Time Event Comment 554 AN Equip Check 2017 823 Out of Pre Procedure 0825 Anes Start 0825 In Room 0829 An Start Data 0833 An Induction The patient was reevaluated immediately before moderate or deep sedation use and before anesthesia induction. 0834 An Intubation 0841 Anesthesia Ready 0845 Antibiotic Given 0851 Proc Start 0904 An Extubation 0914 an stop data 0918 Handoff to RN I completed my SBAR handoff to the receiving nurse. 0918 An Stop Meds Name Total midazolam (VERSED) 1 mg/mL injection 2 mg lidocaine (2%) 200 mg/10mL Injection 80 mg syringe propofol (DIPRIVAN) 200 mg/ 20 mL 150 mg injection (VIAL) ondansetron (ZOFRAN) injection 4 mg phenylephrine (THAIS-SYNEPHRINE) 0.1 mg/mL 550 mcg injection (SYRINGE) dextran 70/hypromellose (GENTEAL TEARS; 2 drop BION TEARS) ophthalmic solution ceFAZolin (ANCEF) IVP 2 g 2 g ePHEDrine 50 mg/mL 50 mg in sodium 5 mg chloride PF 0.9% 5 mL IV syringe famotidine (PEPCID) injection 20 mg metoclopramide (REGLAN) injection 10 mg albuterol (VENTOLIN HFA, PROAIR HFA) 2 puff inhaler lactated ringers infusion 450 mL * Name O2 N2O Inspired N2O Sevoflurane Inspired Sevoflurane * No blood administrations on file. Type Details Placement Removal Wounds 06/13/17; 0823; Vagina; Surgical 06/13/17 0823 by Rashid, (NOT for Incision; SUTURES, VAGINAL PACKING WITH BELINDA Adkins Pressure ESTRACE CREAM. Injuries) Wounds 12/16/17; 0857; Groin; Surgical 12/16/17 0857 by Roberto, (NOT for Incision; CLANED AND DRIED BELINDA Valdovinos Pressure Injuries) Peripheral 12/16/17; 0620; RN; R; Forearm; 22 G; 1; 12/16/17 0620 by Eason, 12/16/17 1107 by Eason, IV 12/16/17; 1107 BELINDA Perales RN Supraglott 12/16/17; 0834; Ventilated by mask (1); 12/16/17 0834 by 02/22 0904 by ic Airway LMA; 4; 1 insertion attempt; End-tidal Livier Moran, Livier Moran, CO2; 12/16/17; 09 MD ANDERSON in this encounter Social History Tobacco Use [...] impairment: No 10/29/2017 as of this encounter OR Notes * Anesthesia Postprocedure Evaluation - Tone Fregoso MD - 12/16/2017 10:25 AM CDT Post-Anesthesia Evaluation Name: Nara Huizar : 1955 Age: 62 y.o. Sex: female Procedure Date: 12/16/2017 Procedure: Procedure(s) with comments: CYSTOSCOPY, INJECTION BOTOX (300 UNITS) - CASE LENGTH 30 MINUTES Surgeon: Surgeon(s): Balbina Garcia MD Jensen, Derek, MD Post-Anesthesia Vitals BP: 101/72 (12/16 1015) Pulse: 96 (12/16 1000) Respirations: 26 PER MINUTE (12/16 1015) SpO2: 92 % (12/16 1015) O2 Delivery: None (Room Air) (12/16 1015) SpO2 Pulse: 98 (12/16 1015) Post Anesthesia Evaluation Note Evaluation location: Pre/Post Patient participation: recovered; patient participated in evaluation Level of consciousness: alert Pain score: 0 Pain management: adequate Hydration: normovolemia Temperature: 36.0C - 38.4C Airway patency: adequate Perioperative Events Perioperative events: no Post-op nausea and vomiting: no PONV Postoperative Status Cardiovascular status: hemodynamically stable Respiratory status: spontaneous ventilation Follow-up needed: none Perioperative Events Perioperative Event: No Emergency Case Activation: No * Anesthesia Preprocedure Evaluation - Estefani Gomez MD - 12/16/2017 7:46 AM CDT Formatting of this note may be different from the original. Anesthesia Pre-Procedure Evaluation Name: Nara Huizar : 1955 Age: 62 y.o. Sex: female Procedure Date: 06/13/17714 Procedure: Procedure(s): URETHROLYSIS, INCISION OF URETHRAL SLING, CYSTOSCOPY (N /A ) - CASE LENGTH 1.5 HOURS Physical Assessment Vital Signs (last filed in past 24 hours): BP: 110/70 (12/16 609) Temp: 36.7 C (98.1 F) (12/16 609) Pulse: 94 (12/16 609) Respirations: 23 PER MINUTE (12/16 609) SpO2: 97 % (12/16 609) O2 Delivery: Nasal Cannula (12/16 609) Height: 160 cm (63") (12/16 609) Weight: 73.8 kg (162 lb 12.8 oz) (12/16 609) Patient History Allergies Allergen Reactions Ibuprofen RASH Triple Antibiotic [Hcted-Uvwwx-Cawalje-Pramoxine] RASH Naproxen Sodium NAUSEA ONLY Current Medications Medication Directions albuterol (VENTOLIN HFA) [...] 150 mg by mouth at bedtime daily. Scheduled Meds:Continuous Infusions: PRN and Respiratory Meds: Review of Systems/Medical History Patient summary reviewed Pertinent labs reviewed PONV Screening: Female gender No history of anesthetic complications No family history of anesthetic complications Airway - negative Pulmonary Current smoker (40+ pyh); patient smoked on day of surgery Asthma COPD, moderate Pneumonia (2017) Home oxygen use (5 lpm at night and during day if feeling short of breath) Sleep apnea (never fitted for a mask, but tested positive.) Last COPD exacerbation 1 month ago. Cardiovascular Recent diagnostic studies: ECG EKG 06/04/17 NSR with borderline left axis deviation and borderline T wave abn. Exercise tolerance: <4 METS Beta Liliana therapy: Yes Dysrhythmias (s/p ablation); atrial fibrillation Hyperlipidemia Uses walker can perform ADL's needs assistance with long walking. GI/Hepatic/Renal GERD, well controlled Neuro/Psych Neuromuscular disease Hx TIA CVA (facial droop, mcfp memory loss, left hemiparesis), residual symptoms Headaches [...] Findings: Decreased breath sounds.Rales: RLL crackles. Comments: Coarse breath sounds in lung bases bilaterally Abdominal Findings: Negative Abdomen soft Bowel sounds [...] Chemistry: Lab Results Component Value Date NA 142 10/03/2017 K 4.2 10/03/2017 CL 108 10/03/2017 CO2 28 10/03/2017 GAP 6 10/03/2017 BUN 10 10/03/2017 CR 0.5 11/13/2017 CR 0.65 10/03/2017 GLU 102 10/03/2017 CA 9.6 10/03/2017 ALBUMIN 4.1 10/03/2017 MG 1.7 05/15/2017 TOTBILI 0.3 10/03/2017 Coagulation: Lab Results Component Value Date PTT 29.9 05/28/2017 INR 1.0 05/28/2017 Anesthesia Plan ASA score: 3 Plan: general Induction method: intravenous NPO status: acceptable Informed Consent Anesthetic plan and risks discussed with patient. Plan discussed with: anesthesiologist and resident. in this encounter Plan of Treatment Date Type Specialty Care Team Description 01/02/2018 Surgery Benito Albrecht MD ESOPHAGOGASTRODUODENOSCOP [address] ENDOSCOPIC ULTRASOUND [address] [place] [address] 01/02/2018 Procedure Pass 01/02/2018 Hospital Benito Albrecht MD Weight loss Encounter [address] [place], [place] [phone] as of this encounter Visit Diagnoses Not on filein this encounter Administered Medications Medication Order MAR Action Action Date Dose Rate Site albuterol (PROAIR HFA, VENTOLIN HFA, or Given 12/16/2017 2 puffs PROVENTIL HFA) inhaler 08:20 CDT INTRA-PROCEDURE MED, Starting 12/16/17 at 0820, Until Fri12/16/17 at 0924, RT PROTOCOL, Anesthesia Intra-op ceFAZolin (ANCEF) IVP 2 g Given 12/16/2017 2 g 2 g, Intravenous, ONCE, 1 dose, Tue 08:45 CDT 12/16/17 at 0545, Give Pre-Op < 60 minutes prior to first incision. (Given in OR). IV PUSH -- RECONSTITUTE each 1 g vial by adding 10 mL 0.9% NACL dextran 70/hypromellose (GENTEAL TEARS; Given 12/16/2017 2 drops BION TEARS) ophthalmic solution 08:35 CDT INTRA-PROCEDURE MED, Starting 12/16/17 at 0835, Until e 12/16/17 at 0924, Dry Eyes, Anesthesia Intra-op ePHEDrine 50 mg/mL 50 mg in sodium Given - New 12/16/2017 5 mg chloride PF 0.9% 5 mL IV syringe Bag 08:54 CDT 5 mL, INTRA-PROCEDURE MED(CONT), Starting 12/16/17 at 0854, Until 12/16/17 at 0924, Anesthesia Intra-op famotidine (PEPCID) injection Given 12/16/2017 20 mg INTRA-PROCEDURE MED, Starting Tue 08:05 CDT 12/16/17 at 0805, Until e 12/16/17 at 0924, Indigestion/Heartburn, Anesthesia Intra-op lidocaine (PF) injection Given 12/16/2017 80 mg INTRA-PROCEDURE MED, Starting Tue 08:33 CDT 12/16/17 at 0833, Until 12/16/17 at 0924, Anesthesia Intra-op metoclopramide (REGLAN) injection Given 12/16/2017 10 mg INTRA-PROCEDURE MED, Starting Tue 08:05 CDT 12/16/17 at 0805, Until Fri12/16/17 at 0924, Nausea/Vomiting Injectable, Anesthesia Intra-op midazolam (VERSED) injection Given 12/16/2017 2 mg Intravenous, INTRA-PROCEDURE MED, 08:25 CDT Starting 12/16/17 at 0825, Until 12/16/17 at 0924, Agitation Injectable, Anxiety Injectable, Anesthesia Intra-op ondansetron (ZOFRAN) injection Given 12/16/2017 4 mg Intravenous, INTRA-PROCEDURE MED, 08:46 CDT Starting 12/16/17 at 0846, Until Fri12/16/17 at 0924, Nausea/Vomiting Injectable, Anesthesia Intra-op phenylephrine in NS injection syringe Given 12/16/2017 150 mcg Intravenous, INTRA-PROCEDURE MED, 08:46 CDT Starting Fri12/16/17 at 0846, Until Fri12/16/17 at 0924, Symptomatic Hypotension, Anesthesia Intra-op Given 12/16/2017 150 mcg 08:52 CDT Given 12/16/2017 150 mcg 08:56 CDT propofol (DIPRIVAN) injection Given 12/16/2017 150 mg INTRA-PROCEDURE MED, Starting Fri 08:33 CDT 12/16/17 at 0833, Until e 12/16/17 at 0924, Anesthesia Intra-op in this encounter
--- OUTSIDE RECORDS SUMMARY | 2018-01-01 10:16 | XMS REPORT | Encounter Summary ---
Author Author [facility] Organization [facility] Address Unknown Phone Unavailable Care Team Providers Care Transmission Calibration Engineer Name Role Phone Apoorva Shane MD Unavailable Edgardo Torres MD Unavailable Amanda Bhandari Unavailable Montana Villasenor MD Unavailable Gilles Ness MD Unavailable Rain Tariq MD Unavailable Harika Hsu MD Unavailable Nayana Mccarty RN Unavailable Unavailable Symone Lee Unavailable Unavailable Crissy Grande DIRECTOR PRODUCT SAFETY PCP Encounter Details Date Type Department Care Team Description 11/17/2017 Documentation [facility] Radames Newby MD Physicians-Neurology [address] [facility] [place] [address] [address] [facility] [phone] [place] [address] Social History Tobacco Use Types Packs/Day Years [...] impairment: No 10/29/2017 as of this encounter Progress Notes * Radamse Newby MD - 11/17/2017 2:51 PM CDT Received MRI L spine report from from 11/03/17 L4-L5 flattening with annular tear, mild bilateral foraminal stenosis and no central canal stenosis in this encounter Plan of Treatment Date Type Specialty Care Team Description 01/02/2018 Surgery Benito Albrecht MD ESOPHAGOGASTRODUODENOSCOP [address] ENDOSCOPIC ULTRASOUND [address] [place] [address] 01/02/2018 Procedure Pass 01/02/2018 Hospital Benito Albrecht MD Weight loss Encounter [address] [place] [address] [phone] as of this encounter Visit Diagnoses Not on filein this encounter
--- OUTSIDE RECORDS SUMMARY | 2018-01-01 10:16 | XMS REPORT | Encounter Summary ---
Author Author [facility] Organization [facility] Address Unknown Phone Unavailable Care Team Providers Care Official Court Interpreter Name Role Phone Apoorva Shane MD Unavailable Edgardo Torres MD Unavailable Amanda Bhandari Unavailable Montana Villasenor MD Unavailable Gilles Ness MD Unavailable Rain Tariq MD Unavailable Harika Hsu MD Unavailable Nayana Mccarty RN Unavailable Unavailable Symone Lee Unavailable Unavailable Crissy Grande PRODUCT RESPONSIBILITY LIAISON PCP Reason for Referral * Radiology Services Status Reason Specialty Diagnoses / Referred By Referred To Procedures Contact Contact New Request Radiology Diagnoses Radames Newby, Bilateral leg MD weakness [address] [place], [place] MRI C-SPINE WO/W [address] CONTRAST * Radiology Services Status Reason Specialty Diagnoses / Referred By Referred To Procedures Contact Contact New Request Radiology Diagnoses Joseam, Radames, Bilateral leg MD weakness [address] [place], [place] MRI C-SPINE WO/W [address] CONTRAST * Radiology Services Status Reason Specialty Diagnoses / Referred By Referred To Procedures Contact Contact No Auth Needed Radiology Diagnoses Radames Newby, Ca2 Mri Bilateral leg [address] [facility] weakness [address] [place] [address] MRI HEAD WO/W 10126 Phone: CONTRAST CHG MRI SPINAL [phone] CANAL CERVICAL Fax: W/O & W/CONTR [phone] MATRL * Radiology Services Status Reason Specialty Diagnoses / Referred By Referred To Procedures Contact Contact No Auth Needed Radiology Diagnoses Radames Newby Ca2 Mri Bilateral leg [address] [place] [address] [place] [address] MRI HEAD WO/W [address] Phone: CONTRAST CHG MRI SPINAL [phone] CANAL CERVICAL Fax: W/O & W/CONTR [phone] MATRL Reason for Visit * Radiology Services Status Reason Specialty Diagnoses / Referred By Referred To Procedures Contact Contact No Auth Needed Radiology Diagnoses Radames Newby Ca2 Mri Bilateral leg [address] [place] [address] [place] [address] MRI HEAD WO/W [address] Phone: CONTRAST CHG MRI SPINAL [phone] CANAL CERVICAL Fax: W/O & W/CONTR [phone] MATRL Encounter Details Date Type Department Care Team Description 11/13/2017 Hospital [facility] Radames Newby MD Encounter Hospital Radiology [address] [place] [address] [address] [phone] [place] [address] [phone] Social History Tobacco Use Types Packs/Day Years [...] by mouth at mg tablet bedtime daily. metoprolol XL (TOPROL XL) Take 25 mg by mouth 11/21/2017 25 mg extended release daily. tablet as of this encounter Plan of Treatment Date Type Specialty Care Team Description 01/02/2018 Surgery Benito Albrecht MD ESOPHAGOGASTRODUODENOSCOP [address] [facility] Y ENDOSCOPIC ULTRASOUND MS [address] [place] [address] [phone] 01/02/2018 Procedure Pass 01/02/2018 Hospital Benito Albrecht MD Weight loss Encounter [address] [place] [address] [phone] as of this encounter Procedures Procedure Name Priority Date/Time Associated Diagnosis Comments MRI C-SPINE WO/W CONTRAST Routine 11/13/2017 Bilateral [...] section. in this encounter Results * MRI C-SPINE WO/W CONTRAST (11/13/2017 2:44 [...] on 11/13/2017 2:47 PM. Performing Organization Address City/State/Zipcode Phone Number RAD RESULTS * POC CREATININE, RAD (11/13/2017 1:44 PM) Creatinine, POC 0.5 0.4 - 1.00 MG/DL [facility] Performing Organization Address City/State/Zipcode Phone Number MAIN LAB [address] [place] [address] in this encounter Visit Diagnoses Diagnosis Bilateral leg weakness Other musculoskeletal symptoms referable to limbs Administered Medications Medication Order MAR Action Action Date Dose Rate Site gadobenate dimeglumine (MULTIHANCE) Given 11/13/2017 14 mL injection 14 mL 14:35 CDT 14 mL, Intravenous, ONCE, 1 dose, Gretchen 11/13/17 at 1445, NOTE: This is a HIGH ALERT Medication. in this encounter
--- OUTSIDE RECORDS SUMMARY | 2018-01-01 10:16 | XMS REPORT | Encounter Summary ---
Author Author [facility] Organization [facility] Address Unknown Phone Unavailable Care Team Providers Care Pin Ticket Machine Operator Name Role Phone Apoorva Shane MD Unavailable Edgardo Torres MD Unavailable Amanda Bhandari Unavailable Montana Villasenor MD Unavailable Gilles Ness MD Unavailable Rain Tariq MD Unavailable Harika Hsu MD Unavailable Nayana Mccraty RN Unavailable Unavailable Symone Lee Unavailable Unavailable Crissy Grande NP PCP Encounter Details Date Type Department Care Team Description 11/13/2017 Hospital [facility] Alvaro Duval MD Hematuria, unspecified Encounter [facility] [place] [address] [place] [address] [place] [address] [place] [address] [phone] Social History Tobacco Use Types Packs/Day Years [...] 10 mg tabletIndications: meals Diarrhea, unspecified type montelukast (SINGULAIR) Take 10 mg by mouth [...] [address] ENDOSCOPIC ULTRASOUND [place] [address] [place] [address] [phone] 01/02/2018 Procedure Pass 01/02/2018 Hospital Benito Albrecht MD Weight loss Encounter [address] [place] [address] [phone] as of this encounter Procedures Procedure Name Priority Date/Time Associated Diagnosis Comments PROTEIN/CR RATIO,UR RAN Routine 11/13/2017 Hematuria, unspecified Results for this 10:56 AM CDT type procedure are in the results section. in this encounter Results * PROTEIN/CR RATIO,UR RAN (11/13/2017 10:56 AM) Protein, Random <4 MG/DL [facility] Creatinine, Random 27 MG/DL [facility] Specimen Urine - Urine Performing Organization Address City/State/Zipcode Phone Number [facility] [address] [place] [address] in this encounter Visit Diagnoses Diagnosis Hematuria, unspecified type Admitting Diagnoses Diagnosis Hematuria, unspecified
--- OUTSIDE RECORDS SUMMARY | 2018-01-01 10:16 | XMS REPORT | Encounter Summary ---
Author Author [facility] Organization [facility] Address Unknown Phone Unavailable Care Team Providers Care Gateman Name Role Phone Apoorva Shane MD Unavailable Edgardo Torres MD Unavailable Amanda Bhandari Unavailable Montana Villasenor MD Unavailable Gilles Ness MD Unavailable Rain Tariq MD Unavailable Harika Hsu MD Unavailable Nayana Mccarty RN Unavailable Unavailable Symone Lee Unavailable Unavailable Crissy Grande METHODS ANALYST DATA PROCESSING PCP Reason for Visit * Auth/Cert Status Reason Specialty Diagnoses / Referred By Referred To Procedures Contact Contact Diagnoses Neurogenic bladder Neurogenic bladder [N31.9] P rocedures GA CYSTOURETHROSCOP Y INJ CHEMODENERVATION BLADDER CYSTOSCOPY INJECTION NEUROTOXIN Encounter Details Date Type Department Care Team Description 12/16/2017 Hospital Main Operating Room Balbina Garcia MD Neurogenic bladder Encounter Main Hospital 2nd fl [address] [place] [address] [place], [place] [id number] Social History Tobacco Use Types Packs/Day Years [...] interact with your prescription medicines or other sfvq-jyb-iecvmpm (OTC) medicines. Some prescription medicines have acetaminophen [...] of taking these medicines. Date Last Reviewed: 03/07/201619992267-6051 [employer]. [address] [place] [address]. All rights reserved. This information is not [...] basin, wash it out. Date Last Reviewed: 03/07/201619995719-3346 [employer]. [address] [place] [address]. All rights reserved. This information is not [...] with any medicine updates or questions. E-mail: [email or web address] Before going home from the hospital, please [...] and any other valuables at home. [facility] is not responsible for the loss or breakage of personal items. Remove nail khmer, makeup and all jewelry (including piercings) before coming to the hospital. The morning of your procedure: brush your teeth and tongue do not smoke do not shave the area where you will have surgery What to bring to the hospital ID/ Insurance Card Submarine Diver card Official documents for legal guardianship Copy of your Living Will, Advanced Directives, and/or Durable Power of Supervisor [place] Small bag with a few personal belongings [...] do not receive a call, please call [phone] before 4:30pm or [phone] after 4:30pm. Notify us at [facility]: if you need to cancel your procedure if you are going to be late Arrival at the [facility] [address] [place] [address] Park in the Parking Garage, located directly across from the main entrance to the hospital. Handbag Designer parking is available from 7 AM to 4 PM Friday through Friday. Enter through the ground floor [facility] entrance and check in at the Information [...] staying with patient over night. * Latrice Awad RN - 12/16/2017 10:15 AM CDT Patient able [...] by Dr. Jose Kelly MD Page Urology station engineer main line with questions. __ History of Present Illness [...] that time she reported urgency, frequency and [id number]. Denied R[place]. She endorsed having to crede [...] Date Acid reflux controlled by protonix Afib ([facility]) Alzheimer disease 2004 Anxiety disorder Arthritis Asthma Colon polyps COPD (chronic obstructive pulmonary disease) ([facility]) Depression DM (diabetes mellitus) ([facility]) last A1C 5 Dyslipidemia Gastroparesis Generalized headaches Heart disease Hyperlipemia Irritable bowel disease Irritable bowel syndrome with diarrhea On supplemental oxygen therapy 3L/NC per day, 5L/NC per night Stroke ([facility]) most recent 2014 6 total strokes, right facial drooping, left sided weakness and long line teamster memory loss Thyroid disorder Urinary tract infection Past Surgical History: Procedure Laterality Date HX CHOLECYSTECTOMY 1973 with appy HX TUBAL LIGATION 1982 COLONOSCOPY -2014 [place] BLADDER SURGERY 2016 sling [place] SIGMOIDOSCOPY FLX DX W/COLLJ SPEC BR/WA IF PFRMD N/A 09/26/2015 SIGMOIDOSCOPY DIAGNOSTIC to rule out ulcerative colitis. performed by Edgardo Torres MD at ENDO/GI [place] SIGMOIDOSCOPY FLX W/BIOPSY SINGLE/MULTIPLE 09/26/2015 SIGMOIDOSCOPY BIOPSY performed by Edgardo Torres MD at ENDO/GI HX CARPAL TUNNEL RELEASE Bilateral 2017 and "nerve damage" repair per elbows GA RMVL/REVJ SLING STRESS INCONTINENCE N/A 06/13/2017 URETHROLYSIS, INCISION OF URETHRAL SLING, CYSTOSCOPY performed by Balbina Garcia MD at Main OR/Periop KNEE SURGERY 07/16/2017 ELBOW SURGERY 09/08/2017 ABLATION OF DYSRHYTHMIC FOCUS ? 2016 or 2017 done at [facility] EPIDURAL BLOCK HX CERVICAL FUSION 2004 to [...] for this patient. Allergies: Ibuprofen; Triple antibiotic [rpihp-xeuni-shmxsvp-pramoxine]; and Naproxen sodium Medications: Prescriptions Prior to [...] PACU - stable Cristofer Olivares MD Pager [phone] ATTESTATION I performed this procedure with a resident. Staff name: Balbina Garcia MD * Operative Report (Direct Entry) - Balbina Garcai MD - 12/16/2017 8:51 AM CDT Formatting [...] Specimen(s) Removed/Disposition: none Cristofer Olivares MD Pager [phone] ATTESTATION I performed this procedure with a resident. Staff name: Balbina Garcia MD in this encounter Plan of Treatment Date Type Specialty Care Team Description 01/02/2018 Surgery Benito Albrecht MD ESOPHAGOGASTRODUODENOSCOP [address] ENDOSCOPIC ULTRASOUND [address] [place] [address] 01/02/2018 Procedure Pass 01/02/2018 Hospital Benito Albrecht MD Weight loss Encounter [address] [place] [address] as of this encounter Procedures [...] 12/02 TO 12/16 - Tay GUERRA RN ([id number]) POC GLUCOSE 12/16/2017 Results for this 6:26 AM CDT procedure are in the results section. in this encounter Results * ECG-SCAN (12/17/2017 12:08 PM) Narrative Performed At Ordered by an unspecified provider. * POC GLUCOSE (12/16/2017 9:30 AM) Glucose, POC 93 70 - 100 MG/DL [facility] Performing Organization Address City/[facility]/Zipcode Phone Number [facility] [address] [place] [address] * POC GLUCOSE (12/16/2017 6:26 AM) Glucose, POC 97 70 - 100 MG/DL [facility] Performing Organization Address City/[facility]/Zipcode Phone Number MAIN LAB [address] [place] [address] in this encounter Visit Diagnoses Diagnosis Neurogenic [...]
--- OUTSIDE RECORDS SUMMARY | 2018-01-01 10:16 | XMS REPORT | Encounter Summary ---
Author Author [facility] Organization [facility] Address Unknown Phone Unavailable Care Team Providers Care Water Superintendent Name Role Phone Apoorva Shane MD Unavailable Edgardo Torres MD Unavailable Amanda Bhandari Unavailable Montana Villasenor MD Unavailable Gilles Ness MD Unavailable Rain Tariq MD Unavailable Harika Hsu MD Unavailable Nayana Mccarty RN Unavailable Unavailable Symone Lee Unavailable Unavailable Crissy Grande STEEL RULE DIE MAKER APPRENTICE PCP Reason for Visit * Reason Comments Patient Questions Encounter Details Date Type Department Care Team Description 12/03/2017 Telephone [facility] Benito Albrecht MD Patient Questions [facility] [address] [facility] [address] [place] [address] [address] [facility] [phone] [place] [address] Social History Tobacco Use Types [...] encounter Miscellaneous Notes * Telephone Encounter - RicardoJoseRosa IselaJERMAIN - 12/10/2017 1:47 PM CDT Pt left detailed msg requesting address to facility for 01/02/18 procedure. Returned pts call and provided address to ([address] [place] [phone]) Pt verbalized understanding. * Telephone Encounter - RicardoRosa Isela LPN - 12/03/2017 3:07 PM CDT Returned pts call who requested to know the first name of Dr. Albrecht. Information provided to pt no further f/u needed at this time. in this encounter Plan of Treatment Date Type Specialty Care Team Description 01/02/2018 Surgery Benito Albrecht MD ESOPHAGOGASTRODUODENOSCOP [address] ENDOSCOPIC ULTRASOUND [address] [place] [address] [phone] 01/02/2018 Procedure Pass 01/02/2018 Hospital Benito Albrecht MD Weight loss Encounter [address] [place] [address] [phone] as of this encounter Visit Diagnoses Not on filein this encounter
--- OUTSIDE RECORDS SUMMARY | 2018-01-01 10:16 | XMS REPORT | Encounter Summary ---
Author Author [facility] Organization [facility] Address Unknown Phone Unavailable Care Team Providers Care Acid Leveler Name Role Phone Apoorva Shane MD Unavailable Edgardo Torres MD Unavailable Amanda Bhandari Unavailable Montana Villasenor MD Unavailable Gilles Ness MD Unavailable Rain Tariq MD Unavailable Harika Hsu MD Unavailable Nayana Mccarty RN Unavailable Unavailable Symone Lee Unavailable Unavailable Crissy Grande CLUTCH ASSEMBLER PCP Reason for Visit * Reason Comments Follow Up bi-lateral leg weakness Encounter Details Date Type Department Care Team Description 11/13/2017 Office Visit [facility] Alvaro Duval MD Bilateral leg weakness Physicians[facility] [address] [facility] (Primary Dx); [facility] [address] Abnormal brain MRI; [address] [place] [address] Secondary parkinsonism, [place], [place] [phone] unspecified secondary [id number] Parkinsonism type ([facility]) [phone] Radames Roberts MD [address] [place], [place] [id number] Social History Tobacco Use Types Packs/Day Years Used Date Current Every Day Smoker Cigarettes 0.25 46 Smokeless Tobacco: Never Used Alcohol Use Drinks/Week oz/Week Comments No 0 Standard 0.0 drinks or equivalent Sex Assigned at Date Recorded Not on file as of this encounter Last Filed Vital Signs Vital Sign Reading Time Taken Blood Pressure 116/74 11/13/2017 3:29 PM CDT Pulse 100 11/13/2017 3:29 PM CDT Temperature - - Respiratory Rate - - Oxygen Saturation - - Inhaled Oxygen - - Concentration Weight 70.3 kg (155 lb) 11/13/2017 3:29 PM CDT Height 160 cm (5' 3") 11/13/2017 3:29 PM CDT Body Mass Index 27.46 11/13/2017 3:29 PM CDT in this encounter Functional Status Functional [...] as of this encounter Progress Notes * Radames Newby MD - 11/13/2017 3:30 PM CDT Formatting of this note may be different from the original. Date of Service: 11/13/2017 Subjective: Nara Huizar is a 62 y.o. female for assessment of gait difficulty. History of Present Illness Summary Nara Huizar is a 62 y.o. right handed female who presented in October 2017 here with a history of Which is very vague, the patient has very little information about who and how she was diagnosed with MS, but what she can tell me is that she was told she has MS About 8-10 years after she had MRI for neck pain, she has multiple co-morbidities including COPD, HTN, atrial fibrillation, chest pain, chronic back pain. depression, anxiety and she follows with multiple specialist . She has multiple symptoms of numbness that it is intermittent and she has intermittent numbness in her legs and hands with persistent numbness in the left 4th and 5th finger. She does not remember clear episodes of Neurological dysfunction apart from one in her last in the 1979 s when she had a an episode of disturbed balance throughout her that improved about a month from giving . She has been incontinent of Urine for about 3-4 years with gradual symptoms frequency, urgency and urinary frequency and then started having urinary incontinence. The patient is unsure if she was ever offered an MS medication or if she has been on one and was taken off. I reviewed the records from the outside hospital but there is no indication for the MS diagnosis. Events since last visit:- Nara Huizar is here for follow up today, she had an MRI of the brain and the C-spine cord today She apparently has an MRI of the Lumbar spine that shows degenerative changes with Zufta. She says that her symptoms have been going for years and now more or less are progressive in nature, she has had urinary symptoms for years as well. She had an MRI of the brain and C spine with contrast today and below is the impression IMPRESSION 1. No intracranial mass or acute/recent infarct. 2. Mild to moderate scattered small foci of FLAIR hyperintensity throughout both cerebral hemispheres. The appearance is nonspecific. In patients this age, such hyperintensities are commonly secondary to chronic small vessel ischemic changes. Potential other considerations include migraine headaches, the myelination, vasculitis, or sequelae of prior infectious or inflammatory etiologies. 3. No enhancing lesions Findings: 1. Prior C3-C7 laminectomies and posterior fusion. 2. Multilevel interbody fusions with interbody grafts and fixations at multiple levels. There is anterior fusion hardware at C7-T1. 3. No definite cord abnormality. 4. No cervical spinal stenosis. Mild upper thoracic spinal stenosis at the T1-2 level. 5. Limited foraminal secondary to hardware artifact. Current Outpatient Prescriptions: albuterol (VENTOLIN HFA) 90 mcg/actuation inhaler, Inhale 2 puffs by mouth into the lungs daily. Shake well before use., Disp: , Rfl: apixaban (ELIQUIS) 5 mg tab tablet, Take 5 mg by mouth twice daily., Disp: , Rfl: ARIPiprazole (ABILIFY) 10 mg tablet, Take 10 mg by mouth daily., Disp: , Rfl: baclofen (LIORESAL) 20 mg tablet, Take 20 mg by mouth three times daily., Disp: , Rfl: budesonide/formoterol (SYMBICORT) 160/4.5 mcg HFAA inhalation, Inhale 2 Puffs by mouth daily. , Disp: , Rfl: cetirizine (ZYRTEC) 10 mg tablet, Take 10 mg by mouth every morning., Disp : , Rfl: clonazePAM (KLONOPIN) 1 mg tablet, Take 1 mg by mouth daily as needed., Disp: , Rfl: colesevelam(+) (WELCHOL) 625 mg tablet, Take 1,875 mg by mouth twice daily with meals., Disp: , Rfl: diltiazem CD (CARDIZEM CD) 240 mg capsule, Take 240 mg by mouth daily., Disp: , Rfl: diphenoxylate/atropine (LOMOTIL) 2.5/0.025 mg tablet, Take 2 tablets by mouth four times daily as needed for Diarrhea., Disp: , Rfl: donepezil (ARICEPT) 10 mg tablet, Take 10 mg by mouth At Bedtime Daily., Disp: , Rfl: ergocalciferol (VITAMIN D-2) 50,000 unit capsule, Take 1 capsule by mouth every 7 days. Sundays, Disp: , Rfl: fluticasone (FLONASE) 50 mcg/actuation nasal spray, Apply 1-2 sprays to each nostril as directed daily as needed. Shake bottle gently before using., Disp: , Rfl: gabapentin (NEURONTIN) 400 mg capsule, Take 600 mg by mouth three times daily., Disp: , Rfl: memantine,+, (NAMENDA) 10 mg tablet, Take 10 mg by mouth daily., Disp: , Rfl: metoclopramide (REGLAN) 10 mg tablet, Take 1 tablet before meals, Disp: 90 tablet, Rfl: 1 metoprolol XL (TOPROL XL) 25 mg extended release tablet, Take 25 mg by mouth daily., Disp: , Rfl: mirtazapine (REMERON) 45 mg tablet, Take 45 mg by mouth at bedtime daily., Disp: , Rfl: montelukast (SINGULAIR) 10 mg tablet, Take 10 mg by mouth at bedtime daily. , Disp: , Rfl: MULTIVIT WITH CALCIUM,IRON,MIN (WOMEN'S MULTIPLE VITAMINS PO), Take 1 tablet by mouth daily., Disp: , Rfl: nitroglycerin (NITROSTAT) 0.4 mg tablet, Place 0.4 mg under tongue every 5 minutes as needed for Chest Pain., Disp: , Rfl: nystatin (NYSTOP) 100,000 unit/g topical powder, Apply topically to affected area four times daily., Disp: 30 g, Rfl: 0 other medication, 1 Dose. 5L/NC home oxygen, Disp: , Rfl: oxybutynin XL (DITROPAN XL) 10 mg tablet, Take 1 tablet by mouth daily. Do not cut/ crush/ chew, Disp: 90 tablet, Rfl: [address] (PROTONIX) 40 mg tablet, Take 80 mg by mouth daily., Disp: , Rfl: ranitidine(+) (ZANTAC) 300 mg tablet, Take one tablet by mouth midday and one at bedtime., Disp: 60 tablet, Rfl: 3 rifAXIMin (XIFAXAN) 550 mg tablet, Take 550 mg by mouth every 8 hours., Disp: , Rfl: ropinirole (REQUIP) 2 mg tablet, Take 2 mg by mouth At Bedtime Daily., Disp : , Rfl: simvastatin (ZOCOR) 20 mg tablet, Take 20 mg by mouth At Bedtime Daily., Disp: , Rfl: tiotropium (SPIRIVA) 18 mcg capsule for inhaler, Inhale 18 mcg by mouth daily. , Disp: , Rfl: traZODone (DESYREL) 150 mg tablet, Take 150 mg by mouth at bedtime daily., Disp: , Rfl: Allergies Allergen Reactions Ibuprofen RASH Triple Antibiotic [Ukdgn-Rlruf-Wyqckan-Pramoxine] RASH Naproxen Sodium NAUSEA ONLY Past Medical History: Diagnosis Date Acid reflux controlled by protonix Afib ([facility]) Alzheimer disease 2004 Anxiety disorder Arthritis Asthma Colon polyps COPD (chronic obstructive pulmonary disease) ([facility]) Depression DM (diabetes mellitus) ([facility]) last A1C 5 Dyslipidemia Gastroparesis Generalized headaches Heart disease Hyperlipemia Irritable bowel disease Irritable bowel syndrome with diarrhea On supplemental oxygen therapy 3L/NC per day, 5L/NC per night Stroke ([facility]) most recent 2014 6 total strokes, right facial drooping, left sided weakness and 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 Review of Systems Constitutional: Positive for activity change, appetite change, fatigue and unexpected weight change. HENT: Positive for congestion, drooling, sinus pressure, sneezing, tinnitus and trouble swallowing. Eyes: Positive for itching. Respiratory: Positive for cough, shortness of breath and wheezing. Cardiovascular: Positive for palpitations and leg swelling. Gastrointestinal: Positive for diarrhea. Endocrine: Positive for polyphagia. Genitourinary: Positive for difficulty urinating and enuresis. Musculoskeletal: Positive for arthralgias, back pain, joint swelling, myalgias, neck pain and neck stiffness. Neurological: Positive for dizziness, tremors, weakness, light-headedness, numbness and headaches. Psychiatric/Behavioral: Positive for confusion, decreased concentration and sleep disturbance. The patient is nervous/anxious. All other systems reviewed and are negative. [...] mg tablet Take 1 tablet before meals metoprolol XL (TOPROL XL) 25 mg extended release tablet Take 25 mg by mouth daily. mirtazapine (REMERON) 45 mg tablet Take 45 [...] mg by mouth at bedtime daily. Vitals: 11/13/17 1529 BP: 116/74 Pulse: 100 Weight: 70.3 kg (155 lb) Height: 160 cm (63") Body mass index is 27.46 kg/m. Physical Exam Mental Status Exam: Alert oriented to time, person and place, Speech and Language: Intact for fluency, concierge receptionist and repetition Cranial Nerve Exam: Cranial Nerve II Right Left Visual Acuity 20/25 20/25 Pupil small round minimally but Equally reactive to light No RAPD small round minimally but Equally reactive to light No RAPD Cranial Nerves III-XII Right Left III, IV, (EOM's) Intact Intact V Intact Intact VII Intact Intact VIII Decreased hearing to conversation Decreased hearing to conversation IX, X Intact Intact XI Intact Intact XII Intact Intact Motor: R L R L Neck flexors Hip flexors 4 4 Neck extensors Shoulder Abductors 5 5 Hip extensors Elbow flexors 5 4 Elbow extensors 5- 5 Knee flexors 5- NA Wrist flexors 5- 4 Knee extensors 5 Wrist extensors 5- 5 Ankle dorsiflexors 4+ 4+ Finger flexors 5 5 Ankle plantar flexors 5- 4+ Finger abductors 5- 5- Fingers extensors 4+ 5- Bulk and Tone: Upper Extremity R L Atrophy Minimal minimal Increased Tone No No Lower Extremity R L Atrophy No No Increased Tone Mild Mild Reflexes R L Biceps +++ +++ Brachioradialis +++ +++ Triceps +++ +++ Knee ++ ++ Ankle +++ +++ Reflexes R L Plantar Equivocal Equivocal Sensory Examination Temp: R L Upper Extremity Right hand Decreased Lower Extremity inatct Intact Sensory Examination: Joint position sense R L Fingers Intact Intact Toes Impaired mildly Intact Ankle Sensory examination: Vibration in Seconds R L Fingers 17 secs 17 secs Toes 7 secs 8 secs Ankle Cerebellar/Fine Motor R L Finger to nose : No appendicular ataxia, but bilateral fine postural and rest tremors Bilateral bradykinesia. Heel to toe: limited but no clear ataxia Gait: narrow based, short steps with mild ataxia, unable to tandem Ambulation Index: 12.41 Romberg: Mildly +ve with eyes closed 9-hole peg right hand 37.75 and left hand 34.76 secs Assessment and Plan: Problem Abnormal Brain Mri Secondary Parkinsonism (Hcc) Bilateral Leg Weakness Bilateral leg weakness The patient has bilateral leg weakness in [...] happy to talk to him as wee. Abnormal brain MRI The patient brain as extensive white matter [...] cessation advice was given Secondary parkinsonism (HCC) The patient has some parkinsonian features however these are rather symmetrical. This could be secondary to extensive WM disease. I did not have the chance to fully evaluate this but we can arrange for an evaluation with movement disorder specialist in the future. in this encounter Miscellaneous Notes * Assessment & Plan Note - Radames Newby MD - 11/13/2017 5:35 PM CDT Associated Problem(s): Secondary parkinsonism (HCC) The patient has some parkinsonian features however these are rather symmetrical. This could be secondary to extensive WM disease. I did not have the chance to fully evaluate this but we can arrange for an evaluation with movement disorder specialist in the future. * Assessment & Plan Note - Radames Newby MD - 11/13/2017 4:45 PM CDT Associated Problem(s): Abnormal brain MRI The patient brain as extensive white matter [...] BP and smoking cessation advice was given * Assessment & Plan Note - Radames Newby MD - 11/13/2017 4:42 PM CDT Associated Problem(s): Bilateral leg weakness The patient has bilateral leg weakness in [...] happy to talk to him as wee. in this encounter Plan of Treatment Date Type Specialty Care Team Description 01/02/2018 Surgery Benito Albrecht MD ESOPHAGOGASTRODUODENOSCOP [address] ENDOSCOPIC ULTRASOUND [address] [place] [address] 01/02/2018 Procedure Pass 01/02/2018 Hospital Benito Albrecht MD Weight loss Encounter [address] [place] [address] as of this encounter Visit Diagnoses Diagnosis Bilateral leg weakness - Primary Other musculoskeletal symptoms referable to limbs Abnormal brain MRI Nonspecific (abnormal) findings on radiological and other examination of skull and head Secondary parkinsonism, unspecified secondary Parkinsonism type (HCC)
--- OUTSIDE RECORDS SUMMARY | 2018-01-01 10:17 | XMS REPORT | Encounter Summary ---
Author Author [facility] Organization [facility] Address Unknown Phone Unavailable Care Team Providers Care Radiation Control Worker Name Role Phone Apoorva Shane MD Unavailable Edgardo Torres MD Unavailable Amanda Bhandari Unavailable Montana Villasenor MD Unavailable Gilles Ness MD Unavailable Rain Tariq MD Unavailable Harika Hsu MD Unavailable Nayana Mccarty RN Unavailable Unavailable Symone Lee Unavailable Unavailable Crissy Grande ESTHETICIAN AND MANAGER MEDICAL SPA PCP Reason for Visit * Reason Comments Results c-diff negative Encounter Details Date Type Department Care Team Description 11/04/2017 Telephone [facility] Amanda Bhandari ARNP Results (c-diff negative) Physicians [address] [facility] Ortho and Medical MS [address] [place] [address] [address] [phone] [place] [address] Social History Tobacco Use Types [...] encounter Miscellaneous Notes * Telephone Encounter - Angella Hammer RN - 11/04/2017 10:38 AM CDT Recieved c. diff lab result from [facility] indicating patient is negative for c. diff. Prelim stool cx came back negative as well. Results sent to be scanned into O2. LUISA Patel (ordering provider) notified. Outbound call to pt and informed of results above. Pt verbalized understanding and had no further questions at this time. in this encounter Plan of Treatment Date Type Specialty Care Team Description 01/02/2018 Surgery Benito Albrecht MD ESOPHAGOGASTRODUODENOSCOP [address] ENDOSCOPIC ULTRASOUND MS [address]23 [place] [address] [phone] 01/02/2018 Procedure Pass 01/02/2018 Hospital Benito Albrecht MD Weight loss Encounter [address] MS [address] [place] [address] [phone] as of this encounter Visit Diagnoses Not on filein this encounter
--- OUTSIDE RECORDS SUMMARY | 2018-01-01 10:17 | XMS REPORT | Encounter Summary ---
Author Author [facility] Organization [facility] Address Unknown Phone Unavailable Care Team Providers Care Director Manufacturing Engineering Name Role Phone Apoorva Shane MD Unavailable Edgardo Torres MD Unavailable Amanda Bhandari Unavailable Montana Villasenor MD Unavailable Gilles Ness MD Unavailable Rain Tariq MD Unavailable Harika Hsu MD Unavailable Nayana Mccarty RN Unavailable Unavailable Symone Lee Unavailable Unavailable Crissy Grande OIL HOUSE ATTENDANT PCP Reason for Visit * Reason Comments Results Follow Up Encounter Details Date Type Department Care Team Description 11/07/2017 Telephone [facility] Amanda Bhandari ARNP Results; Follow Up Physicians [address] Ortho and Medical MS [address] [place] [address] [address] [phone] [place] [address] Social History Tobacco Use Types [...] encounter Miscellaneous Notes * Telephone Encounter - Claudine Webster RN - 11/07/2017 1:09 PM CDT Called and spoke to the pt. Informed her of below. The pt states that her diarrhea comes and goes. Will send new labs reqs to the pt's home to have the pt do the other stool samples. * Telephone Encounter - Claudine Webster RN - 11/07/2017 1:06 PM CDT ----- Message from AKHIL Khalil sent at 11/06/2017 5:05 PM CDT ----- Call pt and see how she is doing from diarrhea standpoint - back to her normal diarrhea or still increased? Stool for C. diff and culture negative but no results back for Crypto, Giardia, or fecal fat. See what the status is of those results. in this encounter Plan of Treatment Date Type Specialty Care Team Description 01/02/2018 Surgery Benito Albrecht MD ESOPHAGOGASTRODUODENOSCOP [address] ENDOSCOPIC ULTRASOUND MS [address] [place] [address] [phone] 01/02/2018 Procedure Pass 01/02/2018 Hospital Benito Albrecht MD Weight loss Encounter [address] MS [address] [place] [address] [phone] as of this encounter Visit Diagnoses Not on filein this encounter
--- OUTSIDE RECORDS SUMMARY | 2018-01-01 10:17 | XMS REPORT | Encounter Summary ---
Author Author [facility] Organization [facility] Address Unknown Phone Unavailable Care Team Providers Care Intermediate Manager Name Role Phone Apoorva Shane MD Unavailable Edgardo Torres MD Unavailable Amanda Bhandari Unavailable Montana Villasenor MD Unavailable Gilles Ness MD Unavailable Rain Tariq MD Unavailable Harika Hsu MD Unavailable Nayana Mccarty RN Unavailable Unavailable Symone Lee Unavailable Unavailable Crissy Grande NP PCP Encounter Details Date Type Department Care Team Description 10/29/2017 Procedure Pass [facility] Radiology [address] [facility] [place] [address] Social History Tobacco Use Types Packs/Day Years [...] [address] ENDOSCOPIC ULTRASOUND MS 1023 [place] [address] [phone] 01/02/2018 Procedure Pass 01/02/2018 Hospital Benito Albrecht MD Weight loss Encounter [address] MS [address] [place] [address] [phone] as of this encounter Visit Diagnoses Not on filein this encounter
--- OUTSIDE RECORDS SUMMARY | 2018-01-01 10:17 | XMS REPORT | Encounter Summary ---
Author Author [facility] Organization [facility] Address Unknown Phone Unavailable Care Team Providers Care Lathe Operator Contact Lens Name Role Phone Apoorva Shane MD Unavailable Edgardo Torres MD Unavailable Amanda Bhandari Unavailable Montana Villasenor MD Unavailable Gilles eNss MD Unavailable Rain Tariq MD Unavailable Harika Hsu MD Unavailable Nayana Mccarty RN Unavailable Unavailable Symone Lee Unavailable Unavailable Crissy Grande STEAM AND GAS TURBINE ASSEMBLER PCP Encounter Details Date Type Department Care Team Description 10/29/2017 Prep for Case [facility] Amanda Bhandari ARNP Nausea and vomiting, Physicians - Internal [address] intractability of Medicine MS 1023 vomiting not specified, [place] [address] unspecified vomiting type [address] [phone] (Primary Dx); [place] [address] Weight loss; [phone] Bile duct abnormality Social History Tobacco Use Types Packs/Day Years [...] [address] ENDOSCOPIC ULTRASOUND MS [address] [place] [address] 01/02/2018 Procedure Pass 01/02/2018 Hospital Benito Albrecht MD Weight loss Encounter [address] MS [address] [place] [address] as of this encounter Visit Diagnoses Diagnosis Nausea and vomiting, intractability of vomiting not specified, unspecified vomiting type - Primary Weight loss Loss of weight Bile duct abnormality Unspecified disorder of biliary tract
--- OUTSIDE RECORDS SUMMARY | 2018-01-01 10:17 | XMS REPORT | Encounter Summary ---
Author Author [facility] Organization [facility] Address Unknown Phone Unavailable Care Team Providers Care Head Boys Tennis Coach Name Role Phone Apoorva Shane MD Unavailable Edgardo Torres MD Unavailable Amanda Bhandari Unavailable Montana Villasenor MD Unavailable Gilles Ness MD Unavailable Rain Tariq MD Unavailable Harika Hsu MD Unavailable Nayana Mccarty RN Unavailable Unavailable Symone Lee Unavailable Unavailable Crissy Grande CREDIT ADMINISTRATOR PCP Encounter Details Date Type Department Care Team Description 10/29/2017 Prep for Case [facility] Balbina Garcia MD Neurogenic bladder Physicians - Urology [address] (Primary Dx); Ortho and Medical MS 3016 Bleeding tendency (HCC) [address] [place] [address] [phone] [place] [address] Social History Tobacco Use Types [...] [address] ENDOSCOPIC ULTRASOUND MS [address] [place] [address] [phone] 01/02/2018 Procedure Pass 01/02/2018 Hospital Benito Albrecht MD Weight loss Encounter [address] MS [address] [place] [address] Name Priority Associated Diagnoses Order Schedule PROTIME INR (PT) Routine Bleeding tendency (HCC) Expected: 10/29/2017 (Approximate), Expires: 10/30/2018 PTT (APTT) Routine Bleeding tendency (HCC) Expected: 10/29/2017 (Approximate), Expires: 10/30/2018 as of this encounter Visit Diagnoses Diagnosis Neurogenic bladder - Primary Neurogenic bladder, NOS Bleeding tendency (HCC) Unspecified hemorrhagic conditions
--- OUTSIDE RECORDS SUMMARY | 2018-01-01 10:17 | XMS REPORT | Encounter Summary ---
Author Author [facility] Organization [facility] Address Unknown Phone Unavailable Care Team Providers Care Director Oracle Database Name Role Phone Apoorva Shane MD Unavailable Edgardo Torres MD Unavailable Amanda Bhandari Unavailable Montana Villasenor MD Unavailable Gilles Ness MD Unavailable Rain Tariq MD Unavailable Harika Hsu MD Unavailable Nayana Mccarty RN Unavailable Unavailable Symone Lee Unavailable Unavailable Crissy Grande SKIDDER DRIVER PCP Encounter Details Date Type Department Care Team Description 11/05/2017 Orders Only [facility] Radames Newby MD Physicians-Neurology [address] [facility] [place] [address] [address] [facility] [phone] [place] [address] Social History Tobacco Use Types [...] [address] ENDOSCOPIC ULTRASOUND MS 1023 [place] [address] [phone] 01/02/2018 Procedure Pass 01/02/2018 Hospital Benito Albrecht MD Weight loss Encounter [address] MS [address] [place] [address] [phone] as of this encounter Visit Diagnoses Not on filein this encounter
--- OUTSIDE RECORDS SUMMARY | 2018-01-01 10:17 | XMS REPORT | Encounter Summary ---
Author Author [facility] Organization [facility] Address Unknown Phone Unavailable Care Team Providers Care Sanitation Manager Name Role Phone Apoorva Shane MD Unavailable Edgardo Torres MD Unavailable Amanda Bhandari Unavailable Montana Villasenor MD Unavailable Gilles Ness MD Unavailable Rain Tariq MD Unavailable Harika Hsu MD Unavailable Nayana Mccarty RN Unavailable Unavailable Symone Lee Unavailable Unavailable Crissy Grande AUTO BODY BUILDER APPRENTICE PCP Reason for Visit * Reason Comments Chronic Kidney Disease Encounter Details Date Type Department Care Team Description 11/13/2017 Office Visit [facility] Alvaro Duval MD Hematuria, unspecified Physicians - Internal [address] type (Primary Dx) Medicine MS 3002 [place] [address] [address] Level [address] [phone] [place] [address] Social History Tobacco Use Types Packs/Day Years Used Date Current Every Day Smoker Cigarettes 0.25 46 Smokeless Tobacco: Never Used Alcohol Use Drinks/Week oz/Week Comments No 0 Standard 0.0 drinks or equivalent Sex Assigned at Date Recorded Not on file as of this encounter Last Filed Vital Signs Vital Sign Reading Time Taken Blood Pressure 110/72 11/13/2017 10:30 AM CDT Pulse 96 11/13/2017 10:30 AM CDT Temperature - - Respiratory Rate - - Oxygen Saturation - - Inhaled Oxygen - - Concentration Weight - - Height - - Body Mass Index - - in this encounter Functional Status Functional Status [...] as of this encounter Progress Notes * Alvaro Duval MD - 11/13/2017 10:00 AM CDT Formatting of this note may be different from the original. Date of Service: 11/13/2017 Subjective: Nara Huizar is a 62 y.o. female referred to nephrology clinic for [...] mouth ulcers, rash, pleuritic chest pain, arthritis Recent w/up was negative for ANAs, ANCAs-C3/C4 were wnl. There was no significant proteinuria and an abdominal CT was negative for kidney stones/ tumors. Today Mrs. Huizar returns for regular f/up. She recently underwent a urethrolysis and sling excision on 06/13/17 but while the urinary retention and obstruction improved, she still has urinary urgency and incontinence. 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 Otherwise, she still experiences some dizziness but with significant improvement after she stopped taking the Toprol, following the instructions of her skates operator. No gross hematuria Review of Systems Constitutional: Positive for fatigue. [...] by mouth at bedtime daily. Vitals: 11/13/17 1030 BP: 110/72 Pulse: 96 There is no height or weight on file to calculate BMI. Physical Exam Constitutional: She is oriented to [...] Creatinine, Random Date Value Ref Range Status 11/13/2017 27 MG/DL Final Protein/CR ratio Date Value Ref Range Status 05/15/2017 0.2 Final CBC w/Diff Lab Results Component Value [...] Profile Lab Results Component Value Date/Time NA 142 10/03/2017 09:50 AM K 4.2 10/03/2017 09:50 AM CL 108 10/03/2017 09:50 AM CO2 28 10/03/2017 09:50 AM GAP 6 10/03/2017 09:50 AM BUN 10 10/03/2017 09:50 AM CR 0.65 10/03/2017 09:50 AM GLU 102 (H) 10/03/2017 09:50 AM Lab Results Component Value Date/Time CA 9.6 10/03/2017 09:50 AM ALBUMIN 4.1 10/03/2017 09:50 AM TOTPROT 6.7 10/03/2017 09:50 AM ALKPHOS 101 10/03/2017 09:50 AM AST 13 10/03/2017 09:50 AM ALT 5 (L) 10/03/2017 09:50 AM TOTBILI 0.3 10/03/2017 09:50 AM GFR >60 10/03/2017 09:50 AM GFRAA >60 10/03/2017 09:50 AM Renal US 11/2008: The right kidney [...] her anticoagulation treatment are causing the hematuria. in this encounter Plan of Treatment Date Type Specialty Care Team Description 01/02/2018 Surgery Benito Albrecht MD ESOPHAGOGASTRODUODENOSCOP [address] ENDOSCOPIC ULTRASOUND MS [address] [place], [place] [id number] 01/02/2018 Procedure Pass 01/02/2018 Hospital Benito Albrecht MD Weight loss Encounter [address] MS [address] [place], [place] [address] as of this encounter Procedures Procedure Name Priority Date/Time Associated Diagnosis Comments POC URINE DIPSTICK AUTO Routine 11/13/2017 Hematuria, unspecified Results for this READ 12:00 AM CDT type procedure are in the results section. in this encounter Results * PROTEIN/CR RATIO,UR RAN (11/13/2017 10:56 AM) Protein, Random <4 MG/DL [facility] Creatinine, Random 27 MG/DL [facility] Specimen Urine - Urine Performing Organization Address City/[facility] Phone Number [facility] [address] [place] [address] * POC URINE DIPSTICK AUTO READ (11/13/2017) Urine Glucose POC norm IN CLINIC Urine Bilirubin POC neg IN CLINIC Urine Ketone POC neg IN CLINIC Urine Specific [place] 1.005 IN CLINIC POC Urine Blood POC 50 IN CLINIC Urine PH POC 6 IN CLINIC Urine Protein POC neg IN CLINIC Urine Urobilinogen POC norm IN CLINIC Urine Nitrite POC neg IN CLINIC Urine Leukocytes POC neg IN CLINIC Color,UA IN CLINIC Turbidity,UA IN CLINIC Specimen Urine Performing Organization Address City/[facility] Phone Number IN CLINIC in this encounter Visit Diagnoses Diagnosis Hematuria, unspecified type - Primary
--- OUTSIDE RECORDS SUMMARY | 2018-01-01 10:17 | XMS REPORT | Encounter Summary ---
Author Author [facility] Organization [facility] Address Unknown Phone Unavailable Care Team Providers Care Composition Roll Maker And Cutter Name Role Phone Apoorva Shane MD Unavailable Edgardo Torres MD Unavailable Amanda Bhandari Unavailable Montana Villasenor MD Unavailable Gilles Ness MD Unavailable Rain Tariq MD Unavailable Harika Hsu MD Unavailable Nayana Mccarty RN Unavailable Unavailable Symone Lee Unavailable Unavailable Crissy Grande BRAZER CRAWLER TORCH PCP Reason for Visit * Reason Comments Procedure Encounter Details Date Type Department Care Team Description 10/30/2017 Telephone [facility] Balbina Garcia MD Procedure Physicians - Urology [address] [facility] MS [address] [place] [address] [address] [facility] [phone] [place] [address] Social History Tobacco Use Types [...] encounter Miscellaneous Notes * Telephone Encounter - Rosy DukesJERMAIN - 10/30/2017 4:22 PM CDT Patient called stating that she has a procedure with Dr. Garcia for botox injections and will not be able to come on 12/02/2017. Patient stated that she could come in December. I explained to the patient that I would route it to [facility] for a reschedule of the appointment. Patient would like to be called back @ in this encounter Plan of Treatment Date Type Specialty Care Team Description 01/02/2018 Surgery Benito Albrecht MD ESOPHAGOGASTRODUODENOSCOP [address] ENDOSCOPIC ULTRASOUND MS [address]23 [place] [address] [phone] 01/02/2018 Procedure Pass 01/02/2018 Hospital Benito Albrecht MD Weight loss Encounter [address] MS [address] [place] [address] [phone] as of this encounter Visit Diagnoses Not on filein this encounter
--- OUTSIDE RECORDS SUMMARY | 2018-01-01 10:17 | XMS REPORT | Encounter Summary ---
Author Author [facility] Organization [facility] Address Unknown Phone Unavailable Care Team Providers Care Wound/Ostomy Nurse Name Role Phone Apoorva Shane MD Unavailable Edgardo Torres MD Unavailable Amanda Bhandari Unavailable Montana Villasenor MD Unavailable Gilles Ness MD Unavailable Rain Tariq MD Unavailable Harika Hsu MD Unavailable Nayana Mccarty RN Unavailable Unavailable Symone Lee Unavailable Unavailable Crissy Grande DESK TOP PUBLISHER PCP Encounter Details Date Type Department Care Team Description 11/04/2017 [facility] Radames Newby MD Physicians-Neurology [address] [facility] [place] [address] [address] [facility] [phone] [place] [address] Social History Tobacco Use Types [...] as of this encounter Progress Notes * Verena Calles LPN - 11/04/2017 1:57 PM CDT Pt calls back she is keeping the MRI appointment to be done here at prior to her OV with Dr. Newby 11-13-17 * Alysha Herrera, RN - 11/04/2017 1:57 PM CDT MRI orders faxed over to [facility] in [place], [place] per pt request. Fax confirmation received. in this encounter Plan of Treatment Date Type Specialty Care Team Description 01/02/2018 Surgery Benito Albrecht MD ESOPHAGOGASTRODUODENOSCOP [address] ENDOSCOPIC ULTRASOUND MS [address] [place], [place] [id number] 01/02/2018 Procedure Pass 01/02/2018 Hospital Benito Albrecht MD Weight loss Encounter [address] MS [address] [place] [address] as of this encounter Visit Diagnoses Not on filein this encounter
--- OUTSIDE RECORDS SUMMARY | 2018-01-01 10:17 | XMS REPORT | Encounter Summary ---
Author Author [facility] Organization [facility] Address Unknown Phone Unavailable Care Team Providers Care Medical Observer Name Role Phone Apoorva Shane MD Unavailable Edgardo Torres MD Unavailable Amanda Bhandari Unavailable Montana Villasenor MD Unavailable Gilles Ness MD Unavailable Rain Tariq MD Unavailable Harika Hsu MD Unavailable Nayana Mccarty RN Unavailable Unavailable Symone Lee Unavailable Unavailable Crissy Grande ALCOHOL LAW ENFORCEMENT AGENT PCP Encounter Details Date Type Department Care Team Description 11/05/2017 Orders Only [facility] Elisabet, AKHIL Patel Diarrhea, unspecified Physicians [address] type Ortho and Medical MS [address] [place] [address] [phone] [place] [address] Social History Tobacco Use Types [...] BLVD Y ENDOSCOPIC ULTRASOUND MS 1023 [place] [address] [phone] 01/02/2018 Procedure Pass 01/02/2018 Hospital Benito Albrecht MD Weight loss Encounter [address] MS [address] [place] [address] [phone] as of this encounter Procedures Procedure Name Priority Date/Time Associated Diagnosis Comments C DIFFICILE BY PCR Routine 11/03/2017 Diarrhea, [...] results section. in this encounter Results * LEUKOCYTES, FECAL (11/03/2017) Fecal Leukocytes OTHER OUTSIDE LAB Specimen Stool - Feces Narrative Performed At Performing Organization Address [facility] Phone Number OTHER OUT[facility] LAB * CULTURE-FECES W/SENSITIVITY (11/03/2017) Specimen Stool Narrative Performed At Performing Organization Address City/State/Zipcode Phone Number OTHER OUTSIDE LAB * C DIFFICILE BY PCR (11/03/2017) C. Difficile DNA NEGATIVE OTHER OUTSIDE LAB Specimen Feces Narrative Performed At Performing Organization Address City/State/Zipcode Phone Number OTHER OUTSIDE LAB in this encounter Visit Diagnoses Diagnosis Diarrhea, unspecified type
--- OUTSIDE RECORDS SUMMARY | 2018-01-01 10:17 | XMS REPORT | Encounter Summary ---
Author Author [facility] Organization [facility] Address Unknown Phone Unavailable Care Team Providers Care Goldsmith Apprentice Name Role Phone Apoorva Shane MD Unavailable Edgardo Torres MD Unavailable Amanda Bhandari Unavailable Montana Villasenor MD Unavailable Gilles Ness MD Unavailable Rain Tariq MD Unavailable Harika Hsu MD Unavailable Nayana Mccarty RN Unavailable Unavailable Symone Lee Unavailable Unavailable Crissy Grande NP PCP Encounter Details Date Type Department Care Team Description 10/29/2017 Procedure Pass [facility] Radiology [address] [place] [address] Social History Tobacco Use Types [...] [address] ENDOSCOPIC ULTRASOUND MS [address]23 [place] [address] [phone] 01/02/2018 Procedure Pass 01/02/2018 Hospital Benito Albrecht MD Weight loss Encounter [address] MS [address] [place] [address] [phone] as of this encounter Visit Diagnoses Not on filein this encounter
--- OUTSIDE RECORDS SUMMARY | 2018-01-01 10:18 | XMS REPORT | Encounter Summary ---
Author Author [facility] Organization [facility] Address Unknown Phone Unavailable Care Team Providers Care Textile Slitting Machine Operator Name Role Phone Apoorva Shane MD Unavailable Edgardo Torres MD Unavailable Amanda Bhandari Unavailable Montana Villasenor MD Unavailable Gilles Ness MD Unavailable Rain Tariq MD Unavailable Harika Hsu MD Unavailable Nayana Mccarty RN Unavailable Unavailable Symone Lee Unavailable Unavailable Sukumar Mondragon APRN PCP Reason for Visit * Reason Comments Medication Question Encounter Details Date Type Department Care Team Description 10/23/2017 Telephone [facility] Balbina Garcia MD Medication Question Physicians - Urology [address] [facility] Ortho and Medical MS [address] [place] [address] [address] [facility] [phone] [place] [address] Social History Tobacco Use Types Packs/Day Years Used Date Current Every Day Smoker Cigarettes 0.25 46 Smokeless Tobacco: Never Used Alcohol Use Drinks/Week oz/Week Comments No 0 Standard 0.0 drinks or equivalent Sex Assigned at Date Recorded Not on file as of this encounter Miscellaneous Notes * Telephone Encounter - Emilia Bello LPN - 10/23/2017 4:54 PM CDT Returned patient's call. Patient states we were to send Rx for Valium to [facility] for her to take prior to CT scan. She states Rx not received by pharmacy yet. Appears that Rx printed instead of E-scribing. Called pharmacy and gave verbal order for Valium 10 mg tab--1 tab. Patient expressed thanks and had no further questions. in this encounter Plan of Treatment Date Type Specialty Care Team Description 01/02/2018 Surgery Benito Albrecht MD ESOPHAGOGASTRODUODENOSCOP [address] ENDOSCOPIC ULTRASOUND MS [address] [place] [address] [phone] 01/02/2018 Procedure Pass 01/02/2018 Hospital Benito Albrecht MD Weight loss Encounter [address] [facility] MS [address] [place] [address] [phone] as of this encounter Visit Diagnoses Not on filein this encounter
--- OUTSIDE RECORDS SUMMARY | 2018-01-01 10:18 | XMS REPORT | Encounter Summary ---
Author Author [facility] Organization [facility] Address Unknown Phone Unavailable Care Team Providers Care Sr Technical Sales Consultant Name Role Phone Apoorva Shane MD Unavailable Edgardo Torres MD Unavailable Amanda Bhandari Unavailable Montana Villasenor MD Unavailable Gilles Ness MD Unavailable Rain Tariq MD Unavailable Harika Hsu MD Unavailable Nayana Mccarty RN Unavailable Unavailable Symone Lee Unavailable Unavailable Crissy Grande CHEMISTRY TECHNOLOGIST PCP Reason for Referral * Radiology Services Status Reason Specialty Diagnoses / Referred By Referred To Procedures Contact Contact New Request Radiology Diagnoses Radames Newby, Bilateral leg MD weakness [address] [place], [place] MRI C-SPINE WO/W [address] CONTRAST * Radiology Services Status Reason Specialty Diagnoses / Referred By Referred To Procedures Contact Contact No Auth Needed Radiology Diagnoses Radames Newby, Ca2 Mri Bilateral leg [address] weakness [address] [place] [address] MRI HEAD WO/W [address] Phone: CONTRAST CHG MRI SPINAL [phone] CANAL CERVICAL Fax: W/O & W/CONTR [phone] MATRL Reason for Visit * Reason Comments New Patient * Consult, Test & Treat Status Reason Specialty Diagnoses / Referred By Referred To Procedures Contact Contact No Auth Needed Specialty Neurology Diagnoses Todd Garcia Neurology Cl Services Hx of MD David Alaniz [place] on Required sclerosis [address] [facility] [address] [place] [address] Phone: Encounter Details Date Type Department Care Team Description 10/29/2017 Office Visit [facility] Balbina Garcia MD Bilateral leg weakness [facility]icians[facility]Neurology [address] (Primary Dx) [facility] [place] [address] [place] [address] [place], [place] [phone] Radames Roberts MD [address] [place] [address] [phone] Social History Tobacco Use Types Packs/Day Years Used Date Current Every Day Smoker Cigarettes 0.25 46 Smokeless Tobacco: Never Used Alcohol Use Drinks/Week oz/Week Comments No 0 Standard 0.0 drinks or equivalent Sex Assigned at Date Recorded Not on file as of this encounter Last Filed Vital Signs Vital Sign Reading Time Taken Blood Pressure 126/72 10/29/2017 10:51 AM CDT Pulse 74 10/29/2017 10:51 AM CDT Temperature - - Respiratory Rate - - Oxygen Saturation - - Inhaled Oxygen - - Concentration Weight 69.7 kg (153 lb 9.6 oz) 10/29/2017 10:51 AM CDT Height 160 cm (5' 3") 10/29/2017 10:51 AM CDT Body Mass Index 27.21 10/29/2017 10:51 AM CDT in this encounter Functional Status [...] Progress Notes * Radames Newby MD - 10/29/2017 10:40 AM CDT Formatting of this note may be different from the original. Date of Service: 10/29/2017 Subjective: Nara Huizar is a 62 y.o. female for assessment of "multiple sclerosis by her urologist". History of Present Illness Nara Huizar is a 62 y.o. right handed female who presents here with a history of Which is [...] is no indication for the MS diagnosis. MS symptoms screen:- - Swallowing: she has difficulty swallowing for "strictures" - Bladder function: Urine incontinence - Bowel function: she loses control of her bowels - Vision: stable - Walking: Distance 50 meters, continuous use of a walker - Fatigue: Yes - Cognitive function: Yes - Mood: Stable depression and denies suicidal or homicidal ideation - Sleep: 4-5 hours a day Previous Studies(These are my personal notes on reviewing the MRI images and not an interpretation): I have no previous imaging or studies for this patient Allergies Allergen Reactions Ibuprofen RASH Triple Antibiotic [Symtu-Hlxeu-Nmissac-Pramoxine] RASH Current Outpatient Prescriptions: albuterol (VENTOLIN HFA) 90 mcg/actuation inhaler, Inhale 2 puffs by mouth into the lungs daily. Shake well before use., Disp: , Rfl: alendronate (FOSAMAX) 70 mg tablet, Take 70 mg by mouth every 7 days., Disp : , Rfl: apixaban (ELIQUIS) 5 mg tab tablet, Take 5 mg by mouth twice daily., Disp: , Rfl: ARIPiprazole (ABILIFY) 10 mg tablet, Take 10 mg by mouth daily., Disp: , Rfl: azithromycin (ZITHROMAX) 250 mg tablet, Take 250 mg by mouth daily. Take 2 tabs by mouth on day 1, followed by 1 tab by mouth daily on days 2 - 5., Disp: , Rfl: baclofen (LIORESAL) 20 mg tablet, Take 20 mg by mouth three times daily., Disp: , Rfl: benztropine (COGENTIN) 0.5 mg tablet, Take 0.5 mg by mouth twice daily., Disp: , Rfl: budesonide/formoterol (SYMBICORT) 160/4.5 mcg HFAA inhalation, Inhale 2 Puffs by mouth daily. , Disp: , Rfl: calcium carbonate (OS-DEAN) 1250 mg tablet, Take 1,250 mg by mouth daily., Disp: , Rfl: cephalexin (KEFLEX) 250 mg capsule, Take 1 capsule by mouth twice daily., Disp: 2 capsule, Rfl: 0 cetirizine (ZYRTEC) 10 mg tablet, Take 10 mg by mouth every morning., Disp : , Rfl: colesevelam(+) (WELCHOL) 625 mg tablet, Take 1,875 mg by mouth twice daily with meals., Disp: , Rfl: diazePAM (VALIUM) 10 mg tablet, Take 1 tablet by mouth every 6 hours as needed for Anxiety., Disp: 1 tablet, Rfl: 0 diltiazem CD (CARDIZEM CD) 240 mg capsule, [...] every 7 days. Sundays, Disp: , Rfl: estradiol (ESTRACE) 0.01 % (0.1 mg/g) vaginal cream, Insert or Apply to vaginal area every 7 days., Disp: 42.5 g, Rfl: 11 fluticasone (FLONASE) 50 mcg/actuation nasal spray, Apply 1-2 sprays to each nostril as directed daily as needed. Shake bottle gently before using., Disp: , Rfl: gabapentin (NEURONTIN) 600 mg tablet, Take 600 mg by mouth three times daily., Disp: , Rfl: hydrOXYzine (ATARAX) 50 mg tablet, Take 50 mg by mouth three times daily., Disp: , Rfl: lamoTRIgine (LAMICTAL) 25 mg tablet, Take 25 mg by mouth three times daily. , Disp: , Rfl: magnesium oxide (MAG-OX) 400 mg tablet, Take 400 mg by mouth daily., Disp: , Rfl: memantine,+, (NAMENDA) 10 mg tablet, Take 10 mg by mouth daily., Disp: , Rfl: metoclopramide (REGLAN) 1 mg/mL oral solution, Take 5 mL by mouth before meals and at bedtime., Disp: 600 mL, Rfl: 1 metoprolol XL (TOPROL XL) 25 mg extended release tablet, Take 25 mg by mouth daily., Disp: , Rfl: montelukast (SINGULAIR) 10 [...] mg by mouth daily., Disp: , Rfl: primidone (MYSOLINE) 250 mg tablet, Take 250 mg by mouth every 8 hours., Disp: , Rfl: ranitidine(+) (ZANTAC) 300 mg tablet, Take one tablet by mouth midday and one at bedtime., Disp: 60 tablet, Rfl: 3 rifAXIMin (XIFAXAN) 550 mg tablet, Take 550 mg by mouth every 8 hours., Disp: , Rfl: ropinirole (REQUIP) 2 mg tablet, Take 2 mg by mouth At Bedtime Daily., Disp : , Rfl: sertraline HCl (SERTRALINE PO), Take by mouth., Disp: , Rfl: simvastatin (ZOCOR) 20 mg tablet, Take 20 mg by mouth At Bedtime Daily., Disp: , Rfl: tiotropium (SPIRIVA) 18 mcg capsule for inhaler, Inhale 18 mcg by mouth daily. , Disp: , Rfl: traZODone (DESYREL) 150 mg tablet, Take 150 mg by mouth at bedtime daily., Disp: , Rfl: trimethoprim/sulfamethoxazole (BACTRIM DS) 160/800 mg tablet, Take 1 tablet by mouth twice daily. Begin taking the morning of Urodyanamics, Disp: 2 tablet, Rfl: 0 Past Medical History: Diagnosis Date Acid reflux controlled by protonix Afib ([facility]) Alzheimer disease 2004 Anxiety disorder Arthritis Asthma Colon polyps COPD (chronic obstructive pulmonary disease) ([facility]) Depression DM (diabetes mellitus) ([facility]) last A1C 5 Dyslipidemia Gastroparesis Generalized headaches Heart disease Hyperlipemia Irritable bowel disease Irritable bowel syndrome with diarrhea On supplemental oxygen therapy 3L/NC per day, 5L/NC per night Stroke ([facility]) most recent 2014 6 total strokes, right facial drooping, left 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 HENT: Positive for congestion, hearing loss, sinus pressure, sneezing, tinnitus and trouble swallowing. Eyes: Positive for itching and visual disturbance. Respiratory: Positive for cough, choking, chest tightness, shortness of breath and wheezing. Cardiovascular: Positive for chest pain, palpitations and leg swelling. Gastrointestinal: Positive for diarrhea and nausea. Genitourinary: Positive for enuresis and frequency. Musculoskeletal: Positive for arthralgias, back pain, joint swelling, myalgias, neck pain and neck stiffness. Skin: Positive for wound. Neurological: Positive for dizziness, tremors, facial asymmetry, weakness, light -headedness, numbness and headaches. Hematological: Bruises/bleeds easily. Psychiatric/Behavioral: Positive for agitation, confusion, decreased concentration and sleep disturbance. The [...] mg by mouth twice daily with meals. diazePAM (VALIUM) 10 mg tablet Take 1 tablet by mouth every 6 hours as needed for Anxiety. diltiazem CD (CARDIZEM CD) 240 mg capsule [...] 10 mg by mouth daily. metoclopramide (REGLAN) 1 mg/mL oral solution Take 5 mL by mouth before meals and at bedtime. metoprolol XL (TOPROL XL) 25 mg extended [...] 250 mg by mouth every 8 hours. ranitidine(+) (ZANTAC) 300 mg tablet Take one [...] Begin taking the morning of Urodyanamics Vitals: 10/29/17 1051 BP: 126/72 Pulse: 74 Weight: 69.7 kg (153 lb 9.6 oz) Height: 160 cm (63") Body mass index is 27.21 kg/m. Physical Exam Depression Screening was performed on Nara Huizar in clinic today. Based on the score of 2, no follow up action or recommendations are necessary at this time. HEENT: Normal. Cardio vascular: normal rate and rhythem, no murmurs Pulmonary: Clear resp sounds no wheeze or crackles Neurological exam:- Mental Status Exam: Alert oriented to time, person and place, 3 object recall after 5 minutes is 2/3, able to spell "WORLD" backwards. Speech and Language: Intact for fluency, customer service receptionist and repetition Cranial Nerve Exam: Cranial Nerve II Right Left Visual Acuity 20/25 20/25 Pupil small round minimally but Equally reactive to light No RAPD small round minimally but Equally reactive to light No RAPD Visual Cisse No deficit detected No deficit detected Fundoscopic No pallor No papilledma No pallor No papilledma Color Vision Cranial Nerves III-XII Right Left III, IV, (EOM's) Intact Intact V Intact Intact VII Intact Intact VIII Decreased hearing to conversation Decreased hearing to conversation IX, X Intact Intact XI Intact Intact XII Intact Intact Motor: R L R L Neck flexors Hip flexors 4 4 Neck extensors Shoulder Abductors 5 5 Hip extensors Elbow flexors 5 4 Elbow extensors 4 4 Knee flexors 5- NA Wrist flexors 5- 4 Knee extensors 5 Wrist extensors 5- 5 Ankle dorsiflexors 5 4+ Finger flexors 5 5 Ankle plantar flexors 5 5 Finger abductors 5- 5- Fingers extensors 4+ 5- Bulk and Tone: Upper Extremity R L Atrophy Minimal minimal Increased Tone No No Lower Extremity R L Atrophy No No Increased Tone Mild Mild Reflexes R L Biceps +++ +++ Brachioradialis +++ +++ Triceps +++ +++ Knee +++ NA Ankle +++ +++ Reflexes R L Plantar Down going Down going Sensory Examination Pin Prick: R L Upper Extremity Intact Decreased in medial border C7,C8, T1 distribution Lower Extremity inatct Intact Sensory Examination Light Touch: R L Upper Extremity Intact Intact Lower Extremity Intact Intact Sensory Examination: Joint position sense R L Fingers Intact Intact Toes Impaired Intact Ankle Sensory examination: Vibration in Seconds R L Fingers 18 secs 19 secs Toes 10 secs 10 secs Ankle Cerebellar/Fine Motor R L No appendicular ataxia, but bilateral fine postural and rest tremors Bilateral bradykinesia Gait: narrow based, short steps with mild ataxia, unable to tandem Ambulation Index: 10.81 Romberg: Mildly +ve with eyes closed 9-hole peg right hand 37.85 and left hand 37.03 secs Assessment and Plan: Problem Bilateral Leg Weakness Bilateral leg weakness This is a rather complicated case with multiple comorbidities and with a history suggestive of probable episodic neurlogical dysfunction at some point. Unfortunately, today there are no records of how the previous diagnosis was made or any othe previous imaging She does however have bilateral leg weakness, gait disturbance and what I understand neurogenic bladder which could be due to previous cord lesions. she is also not on any DMD. I explained the patient that it is likely if she did have Relapsing MS that she would be now in a transitional or a progressive phase. However we need to establish the diagnosis of MS first. I will arrange for an MRI of the C spine and brain for assessment of the MS diagnosis and I will see her again in 2 weeks time. I also recommend that she follows with her PCP to investigated her chronic back pain and joint pain and to consider pain management consultation as she is on multiple different medications. in this encounter Miscellaneous Notes * Assessment & Plan Note - Radames Newby MD - 10/29/2017 12:07 PM CDT Associated Problem(s): Bilateral leg weakness This is a rather complicated case with multiple comorbidities and with a history suggestive of probable episodic neurlogical dysfunction at some point. Unfortunately, today there are no records of how the previous diagnosis was made or any othe previous imaging She does however have bilateral leg weakness, gait disturbance and what I understand neurogenic bladder which could be due to previous cord lesions. she is also not on any DMD. I explained the patient that it is likely if she did have Relapsing MS that she would be now in a transitional or a progressive phase. However we need to establish the diagnosis of MS first. I will arrange for an MRI of the C spine and brain for assessment of the MS diagnosis and I will see her again in 2 weeks time. I also recommend that she follows with her PCP to investigated her chronic back pain and joint pain and to consider pain management consultation as she is on multiple different medications. in this encounter Plan of Treatment Date Type Specialty Care Team Description 01/02/2018 Surgery Benito Albrecht MD ESOPHAGOGASTRODUODENOSCOP [address] ENDOSCOPIC ULTRASOUND [address] [place] [address] [phone] 01/02/2018 Procedure Pass 01/02/2018 Hospital Benito Albrecht MD Weight loss Encounter [address] [place] [address] [phone] as of this encounter Results * MRI C-SPINE WO/W [...] Address City/State/Zipcode Phone Number [facility] RESULTS in this encounter Visit Diagnoses Diagnosis Bilateral leg weakness - Primary Other musculoskeletal symptoms referable to limbs
--- OUTSIDE RECORDS SUMMARY | 2018-01-01 10:18 | XMS REPORT | Encounter Summary ---
Author Author [facility] Organization [facility] Address Unknown Phone Unavailable Care Team Providers Care Marketing Engineer Name Role Phone Apoorva Shane MD Unavailable Edgardo Torres MD Unavailable Amanda Bhandari Unavailable Montana Villasenor MD Unavailable Gilles Ness MD Unavailable Rain Tariq MD Unavailable Harika Hsu MD Unavailable Nayana Mccarty RN Unavailable Unavailable Symone Lee Unavailable Unavailable Sukumar Mondragon APRN PCP Crissy Grande NP PCP Encounter Details Date Type Department Care Team Description 10/03/2017 Procedure Pass [facility] Radiology [address] [facility] MED OFFICE [address] [place] [address] Social History Tobacco Use Types [...] [address] ENDOSCOPIC ULTRASOUND [address] [place] [address] 01/02/2018 Procedure Pass 01/02/2018 [facility] Benito Albrecht MD Weight loss Encounter [address] [facility] [address] [place] [address] as of this encounter Visit Diagnoses Not on filein this encounter
--- OUTSIDE RECORDS SUMMARY | 2018-01-01 10:18 | XMS REPORT | Encounter Summary ---
Author Author [facility] Organization [facility] Address Unknown Phone Unavailable Care Team Providers Care Cartography Supervisor Name Role Phone Apoorva Shane MD Unavailable Edgardo Torres MD Unavailable Amanda Bhandari Unavailable Montana Villasenor MD Unavailable Gilles Ness MD Unavailable Rain Tariq MD Unavailable Harika Hsu MD Unavailable Nayana Mccarty RN Unavailable Unavailable Symone Lee Unavailable Unavailable Crissy Grande CARPET SEWER PCP Reason for Visit * Reason Comments Other CT results Encounter Details Date Type Department Care Team Description 10/29/2017 Office Visit [facility] Amanda Bhandari ARNP Diarrhea, unspecified Physicians - Internal [address] type (Primary Dx); Medicine [address] Nausea and vomiting, [facility] [address] intractability of [address] [phone] vomiting not specified, [place] [address] unspecified vomiting [phone] type; Gastroparesis; Weight loss, unintentional Social History Tobacco Use Types Packs/Day Years Used Date Current Every Day Smoker Cigarettes 0.25 46 Smokeless Tobacco: Never Used Alcohol Use Drinks/Week oz/Week Comments No 0 Standard 0.0 drinks or equivalent Sex Assigned at Date Recorded Not on file as of this encounter Last Filed Vital Signs Vital Sign Reading Time Taken Blood Pressure 115/73 10/29/2017 2:40 PM CDT Pulse 111 10/29/2017 2:40 PM CDT Temperature 36.7 C (98 F) 10/29/2017 2:40 PM CDT Respiratory Rate 12 10/29/2017 2:40 PM CDT Oxygen Saturation - - Inhaled Oxygen - - Concentration Weight 69.6 kg (153 lb 6.4 oz) 10/29/2017 2:40 PM CDT Height 160 cm (5' 3") 10/29/2017 2:40 PM CDT Body Mass Index 27.17 10/29/2017 2:40 PM CDT in this encounter Functional Status [...] impairment: No 10/29/2017 as of this encounter Instructions * Patient Instructions - Amanda Bhandari ARNP - 10/29/2017 3:30 PM CDT 1. Turn in liquid stool specimens for testing. Please call the office if you have not heard about the results within 2-3 days. In the meantime, continue current regimen for diarrhea. 2. Increase Reglan dose to 10 mg but take only 3 times a day, 30 minutes before meals. Let us see if this helps with the nausea and vomiting. Be sure to stop the medication if you have any abnormal twitching or tremors. Also, continue gastroparesis diet. 3. Continue pantoprazole twice a day, take 30 minutes before morning and evening meals. Continue ranitidine 300 mg twice a day, taking midday and at that time. 4. Have the EGD and EUS as recommended. Please call if you have not heard from the liquid natural gas plant operator within 1 week. You will need to hold Eliquis for 2 days prior to the exam. 5. Plan to see me for follow-up visit in 6 weeks, call or return sooner if needed. Please call my nurse Krystin if you have any questions or concerns. [phone]. in this encounter Progress Notes * Amanda Bhandari ARNP - 10/29/2017 3:30 PM CDT Formatting of this note [...] to respond to Flagyl in the past. I saw her on 10/03/17 when she was referred back to by Dr. Villasenor/General Surgeon in [place], [place]. She reported her chronic GI symptoms had progressed over the previous 6 months which led to a 20 pound weight loss. She reported daily issues with regurgitation and esophageal burning despite pantoprazole 40 mg twice daily and a dose of Zantac every morning. She also had frequent nighttime regurgitation of liquids and solids as well as esophageal dysphagia symptoms in the distal esophagus with liquids and solids. She reported following a gastroparesis diet with no improvement. She was not taking Reglan but had tolerated this in the past. Outside records were reviewed. Dr. Villasenor performed an EGD on her in 02/2017 and again in 06/2017. Both times he performed esophageal dilation to 20 mm without symptom improvement. Her diarrhea was controlled with WelChol 2 p.o. twice daily , Xifaxan 500 mg 3 times daily long-term, and Lomotil twice daily as needed. She was on Eliquis due to a history of A. fib. Reviewed recent lab work in care everywhere. Lab work dated 09/16/17 revealed normal CBC, hemoglobin A1c 5.6, albumin 3.8, alkaline phosphatase 112. Lab ordered as well as CT A/P and started her on Reglan 5 mg 4 times daily before meals/at bedtime to see if helpful. Also added a second dose of ranitidine at bedtime. She presents today for follow-up office visit. We discussed test results in detail. Blood work from 10/03/17 showed normal CMP, lipase, amylase, and TSH of 2.770. CT A/P 10/29/17 revealed mild dilation of the pancreatic duct within the head and proximal body but no clear mass or enlarged retroperitoneal lymph nodes. Moderate calcified plaque noted in the aorta and major vessels. Large and small bowel are normal caliber with mild to moderate retained stool throughout the colon. Gallbladder absent, liver normal, mild intrahepatic and moderate extrahepatic biliary ductal dilation with common bile duct measuring 1.2 cm. Currently, she continues to struggle. She has only had mild improvement of her nausea despite start of Reglan 5 mg 4 times daily, which she is tolerating without trouble. She is also only noted mild improvement of her GERD symptoms with pantoprazole twice daily before morning and evening meals along with ranitidine 300 mg midday and at bedtime. She continues to vomit or have dry heaves intermittently. No hematemesis or melena. She remains on WelChol 2 twice daily, Xifaxan 3 times daily, and Lomotil as needed. Her current bowel pattern is 2-3 soft bowel movements daily. 3 times a week she can have more frequent bowel movements which are loose and occasional low abdominal pain which improves with a bowel movement. She denies steatorrhea or rectal bleeding. She has gained 3 pounds since the 10/03/17 office visit. She is trying to follow gastroparesis diet. No dysphagia, odynophagia, or anorexia. No history of C. difficile. Outside GI workup: Performed by Dr. Montana Villasenor in [place], [place] 02/22/15 - COLON- prep was adequate and the scope was [...] Biopsies were negative for H. pylori and Celaya's. 03/2017 - Pa/lat CXR - normal. 06/2017 - EGD - class B reflux [...] the radiotracer still present within the stomach. Recent GI workup: 10/03/17 - Lab - normal CMP, lipase, amylase, and TSH of 2.770. 10/29/17 - CT A/P - mild dilation of the pancreatic duct within the head and proximal body but no clear mass or enlarged retroperitoneal lymph nodes. Moderate calcified plaque noted in the aorta and major vessels. Large and small bowel are normal caliber with mild to moderate retained stool throughout the colon. Gallbladder absent, liver normal, mild intrahepatic and moderate extrahepatic biliary ductal dilation with common bile duct measuring 1.2 cm. PAST MEDICAL HISTORY: 1. Status post Hill [...] Positive for activity change, appetite change and fatigue. Negative for chills, diaphoresis, fever and unexpected weight change. HENT: Positive for congestion, sinus pressure, sneezing, tinnitus and trouble swallowing. Negative for mouth sores, sore throat and voice change. Eyes: Negative for pain and visual disturbance. Respiratory: Positive for cough, choking, chest tightness, shortness of breath and wheezing. Cardiovascular: Positive for leg swelling. Negative for chest pain. Gastrointestinal: Positive for diarrhea. Negative for abdominal distention, abdominal pain, anal bleeding, blood in stool, constipation, nausea, rectal pain and vomiting. Endocrine: Positive for polydipsia and polyuria. Genitourinary: Positive for enuresis and flank pain. Negative for pelvic pain. Musculoskeletal: Positive for joint swelling, myalgias and neck stiffness. Negative for arthralgias and back pain. Skin: Positive for wound. Negative for rash. Neurological: Positive for dizziness, tremors, weakness, light-headedness, numbness and headaches. Hematological: Negative for adenopathy. Bruises/bleeds easily. Psychiatric/Behavioral: Positive for agitation, confusion, decreased concentration and sleep disturbance. All other systems reviewed and are negative. [...] Do not cut/ crush/ chew pantoprazole DR WaltonPROTONIX) 40 mg tablet Take 80 mg by [...] taking the morning of Urodyanamics Vitals: 10/29/17 1440 BP: 115/73 Pulse: 111 Resp: 12 Temp: 36.7 C (98 F) TempSrc: Oral Weight: 69.6 kg (153 lb 6.4 oz) Height: 160 cm (63") Body mass index is 27.17 kg/m. Physical Exam Constitutional: She is oriented [...] no distension and no mass. There is no tenderness. There is no rebound and no guarding. Musculoskeletal: Normal range of motion. [...] Refactory N/V, GERD, and regurgitation over past 8 months, minimal improvement with Reglan 5 mg qid, pantoprazole 40 mg bid, and ranitidine 300 mg bid. GERD symptoms have failed to respond to Prevacid, Dexilant, Nexium, and omeprazole in the past. 2. Dysphagia. Reports solid and liquid lower esophageal dysphagia. No improvement with esophageal dilation by outside provider in 02/2017 and 06/2017 when mild esophageal stricture reported at that time. 3. Weight loss. At 09/2017 reported 20 pounds over the previous 6 months due to above symptoms. Weight check today - has gained 3# since the 09/2017 OV. Recent TSH normal. CT A// with mild dilation of the pancreatic duct within the head and proximal body but no clear mass or enlarged retroperitoneal lymph nodes and mild intrahepatic and moderate extrahepatic biliary ductal dilation with common bile duct measuring 1.2 cm. 4. Chronic diarrhea with history of small intestinal bacterial overgrowth. Has taken Tincture of opium and octreotide in the past. Negative biopsies for microscopic colitis in 2016. Symptoms currently well controlled with WelChol 2 p.o. twice daily, Xifaxan 550 mg 3 times daily long-term, and Lomotil as needed. 5. History of Celaya's. Most recent EGD done outside 06/2017 - biopsies with no mention of Celaya's. 6. Long history of smoking. Outside CXR 03/2017 WNL and patient reports normal CXR also 1 month ago. 7. History of A-fib, currently on Eliquis. 8. History of adenomatous colon polyps. Plan: 1. Recommend stool studies for infectious cause of her increasing diarrhea. Will also check fecal fat. She will have this performed at her home laboratory. She was advised to call us if she has not heard from us regarding those results. She will continue current bowel regimen of WelChol, Xifaxan, and Lomotil as needed. 2. Given her ongoing upper GI symptoms as well as ductal dilation noted on recent CT will move forward with EGD/EUS with Dr. Albrecht. I discussed today's CT findings with Dr. Albrecht in the absence of Dr. Torres. 3. For the regurgitation and nausea with vomiting recommend ongoing gastroparesis diet. We will also change the Reglan to 10 mg 3 times daily, liquid, 30 minutes before meals, to see if helpful. We discussed again the risk of Reglan use. She agreed to stop the medication if she develops any abnormal twitching, tremors, etc. 4. Continue pantoprazole twice a day, take 30 minutes before morning and evening meals. Continue ranitidine 300 mg twice a day, taking midday and at bedtime. 5. Consider checking AM Cortisol if N/V symptoms persist and above unremarkable. 6. RTC 6 weeks, sooner if needed. The plan of care was discussed with Dr. Albrecht in the absence of Dr. Torres. Patient and her family member were advised of the plan and voiced agreement and understanding. Total face to face time spent with patient: 40 minutes with >50% of that time spent [...] [address] ENDOSCOPIC ULTRASOUND [address] [place] [address] [phone] 01/02/2018 Procedure Pass 01/02/2018 Hospital Benito Albrecht MD Weight loss Encounter [address] [place] [address] [phone] Name Priority Associated Diagnoses Order Schedule FECAL FAT (TOTAL LIPIDS) Routine Diarrhea, unspecified Expected: 2017, type Expires: 10/29/2018 CRYPTOSPORIDUM,FECAL Routine Diarrhea, unspecified Expected: 10/29/2017, type Expires: 10/29/2018 GIARDIA SCREEN,FECAL Routine Diarrhea, unspecified Expected: 10/29/2017, type Expires: 10/29/2018 as of this encounter Results * CULTURE-FECES W/SENSITIVITY (11/03/2017) Specimen Stool Narrative Performed At Performing Organization Address City/State/Zipcode Phone Number OTHER OUTSIDE LAB * LEUKOCYTES, FECAL (11/03/2017) Fecal Leukocytes OTHER OUTSIDE LAB Specimen Stool - Feces Narrative Performed At Performing Organization Address City/[facility] [place] Phone Number OTHER OUTSIDE LAB * C DIFFICILE BY PCR (11/03/2017) C. Difficile DNA NEGATIVE OTHER OUTSIDE LAB Specimen Feces Narrative Performed At Performing Organization Address City/[facility] [place] [facility] Phone Number OTHER OUTSIDE LAB in this encounter Visit Diagnoses Diagnosis Diarrhea, unspecified type - Primary Nausea and vomiting, intractability of vomiting not specified, unspecified vomiting type Gastroparesis Weight loss, unintentional Loss of weight
--- OUTSIDE RECORDS SUMMARY | 2018-01-01 10:18 | XMS REPORT | Encounter Summary ---
Author Author [facility] Organization [facility] Address Unknown Phone Unavailable Care Team Providers Care Ribbon Inker Name Role Phone Apoorva Shane MD Unavailable Edgardo Torres MD Unavailable Amanda Bhandari Unavailable Montana Villasenor MD Unavailable Gilles Ness MD Unavailable Rain Tariq MD Unavailable Harika Hsu MD Unavailable Nayana Mccarty RN Unavailable Unavailable Symone Lee Unavailable Unavailable Crissy Grande MANAGER BRANCH PCP Encounter Details Date Type Department Care Team Description 10/29/2017 Clinical [facility] Frequency of micturition Support Physicians - Urology (Primary Dx) Ortho and Medical [facility] [address] [place] [address] Social History Tobacco Use Types Packs/Day Years Used Date Current Every Day Smoker Cigarettes 0.25 46 Smokeless Tobacco: Never Used Alcohol Use Drinks/Week oz/Week Comments No 0 Standard 0.0 drinks or equivalent Sex Assigned at Date Recorded Not on file as of this encounter Last Filed Vital Signs Vital Sign Reading Time Taken Blood Pressure 111/50 10/29/2017 8:16 AM CDT Pulse 73 10/29/2017 8:16 AM CDT Temperature - - Respiratory Rate - - Oxygen Saturation - - Inhaled Oxygen - - Concentration Weight 68.5 kg (151 lb) 10/29/2017 8:16 AM CDT Height 160 cm (5' 3") 10/29/2017 8:16 AM CDT Body Mass Index 26.75 10/29/2017 8:16 AM CDT in this encounter Functional Status [...] [address] ENDOSCOPIC ULTRASOUND [address] [place], [place] [id number] 01/02/2018 Procedure Pass 01/02/2018 Hospital Benito Albrecht MD Weight loss Encounter [address] [place] [address] [phone] as of this encounter Procedures Procedure Name Priority Date/Time Associated Diagnosis Comments URODYNAMIC STUDIES Routine 10/29/2017 Frequency of micturition Results for this 12:00 AM CDT procedure are in the results section. POC URINE DIPSTICK MANUAL Routine 10/29/2017 Frequency of micturition Results for this READ 12:00 AM CDT procedure are in the results section. in this encounter Results * URODYNAMIC STUDIES (10/29/2017) Narrative Performed At Performing Organization Address City/State/Zipcode Phone Number IN CLINIC * POC URINE DIPSTICK MANUAL READ (10/29/2017) Urine Glucose POC neg IN CLINIC Urine Bilirubin POC neg IN CLINIC Urine Ketone POC neg IN CLINIC Urine Specific [place] 1.005 IN CLINIC POC Urine Blood POC trace IN CLINIC Urine PH POC 6.0 IN CLINIC Urine Protein POC neg IN CLINIC Urine Urobilinogen POC 0.2 IN CLINIC Urine Nitrite POC neg IN CLINIC Urine Leukocytes POC trace IN CLINIC Color,UA yellow IN CLINIC Turbidity,UA clear IN CLINIC Specimen Urine - Urine Performing Organization Address City/State/Zipcode Phone Number IN CLINIC in this encounter Visit Diagnoses Diagnosis Frequency of micturition - Primary Urinary frequency
--- OUTSIDE RECORDS SUMMARY | 2018-01-01 10:18 | XMS REPORT | Encounter Summary ---
Author Author [facility] Organization [facility] Address Unknown Phone Unavailable Care Team Providers Care Back End Engineer Name Role Phone Apoorva Shane MD Unavailable Edgardo Torres MD Unavailable Amanda Bhandari Unavailable Montana Villasenor MD Unavailable Gilles Ness MD Unavailable Rain Tariq MD Unavailable Harika Hsu MD Unavailable Nayana Mccarty RN Unavailable Unavailable Symone Lee Unavailable Unavailable Crissy Grande OPERATING SYSTEM PROGRAMMER PCP Reason for Visit * Reason Comments Urinary Incontinence Encounter Details Date Type Department Care Team Description 10/29/2017 Office Visit [facility] Balbina Garcia MD Neurogenic bladder Physicians - Urology [address] [facility] Ortho and Medical [address] [place] [address] [address] [facility] [phone] [place] [address] Social History Tobacco Use Types [...] this encounter Instructions * Patient Instructions - Demario StephaniaSHAHLA - 10/29/2017 9:45 AM CDT [facility] Physicians - Urology Pre-Operative Instructions Surgical Procedure: CYSTOSCOPY INJECTION NEUROTOXIN Date of Surgery: 12/02/2017 Arrival Time at the Admission Office (Main Lobby): TBD To ensure that your surgery can proceed without delay, you will be contacted by a phone triage nurse from the Preoperative Assessment Clinic (PAC) to complete this process. Please review the information given to you by your surgeon. You will be called by the surgery staff with your day of surgery arrival time between 2:30 - 4:30 PM the day prior to surgery. If you have [...] multivitamin, red yeast rice, SOLO-e, saw palmetto, Gibson wort, turmeric, valerian root, Vascepa, Vitamin A, Vitamin B complex, Vitamin C, Vitamin E ? You DO NOT need to stop: iron, magnesium, potassium 7 days prior to surgery: ? Stop anti-inflammatory medications such as ibuprofen (Advil, Motrin), naproxen (Aleve), Tiana-Mcdowell, Excedrin, Midol, celecoxib (Celebrex), diclofenac (Voltaren), diflunisal, [...] questions, please contact your provider's office at [phone]. For emergencies during evenings, nights, weekends, and holidays, contact [facility] lumber carrier operator and request they contact the on-call Urology Resident at [phone]. in this encounter Progress Notes * Balbina Garcia MD - 10/29/2017 9:45 AM CDT Formatting of this note may [...] med. She now reports UUI>RICO. Repeat UDS today shows large capacity; incomplete emptying; low pressure DO. + LPP; hypotonic. There is much improved emptying from prior to sling excision. Yet, continued incontinence and some incomplete emptying. Review of Systems Constitutional: Negative. HENT: Negative. Respiratory: Negative. Cardiovascular: Negative. Gastrointestinal: Negative. Genitourinary: Positive for enuresis. Musculoskeletal: Negative. Skin: Negative. Allergic/Immunologic: Negative. Hematological: [...] daily. Begin taking the morning of Urodyanamics There were no vitals filed for this visit. There is no height or weight on [...] mood and affect. Her behavior is normal. Assessment and Plan: Problem Neurogenic Bladder She has objective evidence of obstruction on [...] large capacity; incomplete emptying; low pressure DO. + LPP; hypotonic. There is much improved emptying from prior to sling excision. Yet, continued incontinence and some incomplete emptying. Neurogenic bladder - cic q3h - botox 300u 12/02/17 - hold eloquis for 1 week preop in this encounter Miscellaneous Notes * Assessment & Plan Note - Balbina Garcia MD - 11/02/2017 11:42 PM CDT Associated Problem(s): Neurogenic bladder - cic q3h - botox 300u 12/02/17 - hold eloquis for 1 week preop in this encounter Plan of Treatment Date Type Specialty Care Team Description 01/02/2018 Surgery Benito Albrecht MD ESOPHAGOGASTRODUODENOSCOP [address] ENDOSCOPIC ULTRASOUND [address] [place], [place] [id number] 01/02/2018 Procedure Pass 01/02/2018 Hospital Benito Albrecht MD Weight loss Encounter [address] [place] [address] [phone] as of this encounter Visit Diagnoses Diagnosis Neurogenic bladder Neurogenic bladder, NOS
--- OUTSIDE RECORDS SUMMARY | 2018-01-01 10:18 | XMS REPORT | Encounter Summary ---
Author Author [facility] Organization [facility] Address Unknown Phone Unavailable Care Team Providers Care Beam Builder Helper Name Role Phone Apoorva Shane MD Unavailable Edgardo Torres MD Unavailable Amanda Bhandari Unavailable Montana Villasenor MD Unavailable Gilles Ness MD Unavailable Rain Tariq MD Unavailable Harika Hsu MD Unavailable Nayana Mccarty RN Unavailable Unavailable Symone Lee Unavailable Unavailable Sukumar Mondragon APRN PCP Crissy Grande NP PCP Reason for Visit * Reason Comments Medication Refill Encounter Details Date Type Department Care Team Description 10/16/2017 Refill [facility] Rain Tariq MD Urinary incontinence in Physicians - OBGYN [address] female Ortho and Medical [address] [place] [address] [phone] [place] [address] Social History Tobacco Use Types [...] [address] ENDOSCOPIC ULTRASOUND [address] [place] [address] 01/02/2018 Procedure Pass 01/02/2018 Hospital Benito Albrecht MD Weight loss Encounter [address] [place] [address] [phone] as of this encounter Visit Diagnoses Diagnosis Urinary incontinence in female Unspecified urinary incontinence
--- OUTSIDE RECORDS SUMMARY | 2018-01-01 10:18 | XMS REPORT | Encounter Summary ---
Author Author [facility] Organization [facility] Address Unknown Phone Unavailable Care Team Providers Care Peoplesoft Programmer Name Role Phone Apoorva Shane MD Unavailable Edgardo Torres MD Unavailable Utech, Amanda PULP AND PAPER TESTER Unavailable Montana Villasenor MD Unavailable Gilles Ness MD Unavailable Rain Tariq MD Unavailable Harika Hsu MD Unavailable Nayana Mccarty RN Unavailable Unavailable Symone Lee Unavailable Unavailable Crissy Grande NP PCP Reason for Referral * Radiology Services Status Reason Specialty Diagnoses / Referred By Referred To Procedures Contact Contact No Auth Needed Radiology Diagnoses Utech, Amanda, Mob Ct Weight loss, PULP AND PAPER TESTER [address] unintentional [address] Chronic diarrhea Bl[address] 2ND FLOOR Nausea and MS [address] [place], [place] vomiting, [place] [address] intractability [id number] Phone: of vomiting not specified, unspecified Fax: vomiting type [phone] ABD/PELV W CONTRAST CT ABD/PELV WO/W CONTRAST * Radiology Services Status Reason Specialty Diagnoses / Referred By Referred To Procedures Contact Contact No Auth Needed Radiology Diagnoses Utech, Amanda, Mob Ct Weight loss, PULP AND PAPER TESTER [address] unintentional [address] [facility] OFF[address]LDG Chronic diarrhea Bl[address] 2ND FLOOR Nausea and MS [address] [place], [place] vomiting, [place] [address] intractability [id number] Phone: of vomiting not specified, unspecified Fax: vomiting type [phone] ABD/PELV W CONTRAST CT ABD/PELV WO/W CONTRAST Reason for Visit * Radiology Services Status Reason Specialty Diagnoses / Referred By Referred To Procedures Contact Contact No Auth Needed Radiology Diagnoses [place], Amanda, Mob Ct Weight loss, PULP AND PAPER TESTER [address] unintentional [address] [facility] OFFICE BLDG Chronic diarrhea Blvd 2ND FLOOR Nausea and MS [address] [place], [place] vomiting, [place] [address] intractability [address] Phone: of vomiting not specified, unspecified Fax: vomiting type [phone] ABD/PELV W CONTRAST CT ABD/PELV WO/W CONTRAST Encounter Details Date Type Department Care Team Description 10/29/2017 Hospital [facility] Amanda Bhandari, PULP AND PAPER TESTER [facility] Radiology [address] MED MS [address] [place] [address] 2ND FLOOR [phone] [place] [address] [phone] Social History Tobacco Use Types Packs/Day Years [...] by mouth at mg tablet bedtime daily. alendronate (FOSAMAX) 70 Take 70 mg by mouth every 11/13/2017 mg tablet 7 days. azithromycin (ZITHROMAX) Take 250 mg by mouth 11/13/2017 250 mg tablet daily. Take 2 tabs by mouth on day 1, followed by 1 tab by mouth daily on days 2 - 5. benztropine (COGENTIN) Take 0.5 mg by mouth 11/13/2017 0.5 mg tablet twice daily. calcium carbonate Take 1,250 mg by mouth 11/13/2017 (OS-DEAN) 1250 mg tablet daily. cephalexin (KEFLEX) 250 Take 1 capsule by mouth 2 capsule 0 201711/13/2017 mg capsule twice daily. diazePAM (VALIUM) 10 mg Take 1 tablet by mouth 1 tablet 0 10/20/2017 11/13/2017 tablet every 6 hours as needed for Anxiety. estradiol (ESTRACE) 0.01 Insert or Apply to 42.5 g 11 05/28/2017 % (0.1 mg/g) vaginal vaginal area every 7 cream days. hydrOXYzine (ATARAX) 50 Take 50 mg by mouth three 11/13/2017 mg tablet times daily. lamoTRIgine (LAMICTAL) 25 Take 25 mg by mouth three 11/13/2017 mg tablet times daily. magnesium oxide (MAG-OX) Take 400 mg by mouth 11/13/2017 400 mg tablet daily. metoprolol XL (TOPROL XL) Take 25 mg by mouth 11/21/2017 25 mg extended release daily. tablet primidone (MYSOLINE) 250 Take 250 mg by mouth 11/13/2017 mg tablet every 8 hours. sertraline HCl Take by mouth. 11/13/2017 (SERTRALINE PO) trimethoprim/sulfamethoxa Take 1 tablet by mouth 2 tablet 0 201711/13/2017 zole (BACTRIM DS) 160/800 twice daily. Begin taking mg tablet the morning of Urodyanamics as of this encounter Plan of Treatment Date Type Specialty Care Team Description 01/02/2018 Surgery Benito Albrecht MD ESOPHAGOGASTRODUODENOSCOP [address] ENDOSCOPIC ULTRASOUND MS [address] [place] [address] 01/02/2018 Procedure Pass 01/02/2018 Hospital Benito Albrecht MD Weight loss Encounter [address] MS [address] [place] [address] as of this encounter Procedures Procedure Name Priority Date/Time Associated Diagnosis Comments CT ABD/PELV W CONTRAST Routine 10/29/2017 Weight loss, Results for this 7:30 AM CDT unintentional procedure are in the Chronic diarrhea results section. Nausea and vomiting, intractability of vomiting not specified, unspecified vomiting type Gastroparesis in this encounter Results * CT ABD/PELV W CONTRAST (10/29/2017 7:30 [...] on 10/29/2017 8:20 AM. Performing Organization Address City/State/Zipcode Phone Number [facility] RESULTS in this encounter Visit Diagnoses Diagnosis Weight loss, unintentional Loss of weight Chronic diarrhea Diarrhea Nausea and vomiting, intractability of vomiting not specified, unspecified vomiting type Gastroparesis Administered Medications Medication Order MAR Action Action Date Dose Rate Site iopamidol 370 (ISOVUE-370) injection 100 Given 10/29/2017 100 mL mL 07:25 CDT 100 mL, Intravenous, ONCE, 1 dose, Fri10/29/17 at 0730, NOTE: This is a HIGH ALERT Medication. sodium chloride PF 0.9% injection 50 mL Given 10/29/2017 50 mL 50 mL, Intravenous, ONCE, 1 dose, Fri 07:25 CDT 10/29/17 at 0730, Intra-procedure (IR) in this encounter
--- OUTSIDE RECORDS SUMMARY | 2018-01-01 10:18 | XMS REPORT | Encounter Summary ---
Author Author [facility] Organization [facility] Address Unknown Phone Unavailable Care Team Providers Care Packing And Wrapping Supervisor Name Role Phone Apoorva Shane MD Unavailable Edgardo Torres MD Unavailable Amanda Bhandari Unavailable Montana Villasenor MD Unavailable Gilles Ness MD Unavailable Rain Tariq MD Unavailable Harika Hsu MD Unavailable Nayana Mccarty RN Unavailable Unavailable Symone Lee Unavailable Unavailable Sukumar Mondragon APRN PCP Reason for Visit * Reason Comments Medication Question Encounter Details Date Type Department Care Team Description 10/20/2017 Telephone [facility] Josue Mitchell MD Medication Question Physicians - Urology [address] [facility] [place] [place] [address] Pav[address] [place] [phone] Social History Tobacco Use Types Packs/Day Years Used Date Current Every Day Smoker Cigarettes 0.25 46 Smokeless Tobacco: Never Used Alcohol Use Drinks/Week oz/Week Comments No 0 Standard 0.0 drinks or equivalent Sex Assigned at Date Recorded Not on file as of this encounter Miscellaneous Notes * Telephone Encounter - Josue Mitchell MD - 10/20/2017 3:50 PM CDT I sent one pill of valium into her pharmacy in preparation for her CT scan as she gets severely claustrophobic. Josue Mitchell MD Urology PGY3 [phone] Please call urology on-call with questions in this encounter Plan of Treatment Date Type Specialty Care Team Description 01/02/2018 Surgery Benito Albrecht MD ESOPHAGOGASTRODUODENOSCOP [address] ENDOSCOPIC ULTRASOUND MS [address] [place] [address] 01/02/2018 Procedure Pass 01/02/2018 Hospital Benito Albrecht MD Weight loss Encounter [address] MS [address] [place] [address] as of this encounter Visit Diagnoses Not on filein this encounter
--- OUTSIDE RECORDS SUMMARY | 2018-01-01 10:18 | XMS REPORT | Encounter Summary ---
Author Author [facility] Organization [facility] Address Unknown Phone Unavailable Care Team Providers Care Validation Software Facilitator Name Role Phone Apoorva Shane MD Unavailable Edgardo Torres MD Unavailable Amanda Bhandari Unavailable Montana Villasenor MD Unavailable Gilles Ness MD Unavailable Rain Tariq MD Unavailable Harika Hsu MD Unavailable Nayana Mccarty RN Unavailable Unavailable Symone Lee Unavailable Unavailable Sukumar Mondragon APRN PCP Reason for Visit * Reason Comments Medication Follow-up Encounter Details Date Type Department Care Team Description 10/20/2017 Telephone [facility] Balbina Garcia MD Medication Follow-up Physicians - Urology [address] Ortho and Medical MS [address] Level [address] [place] [address] [address] [facility] [phone] [place] [address] Social History Tobacco Use Types Packs/Day Years Used Date Current Every Day Smoker Cigarettes 0.25 46 Smokeless Tobacco: Never Used Alcohol Use Drinks/Week oz/Week Comments No 0 Standard 0.0 drinks or equivalent Sex Assigned at Date Recorded Not on file as of this encounter Miscellaneous Notes * Telephone Encounter - Madhuri Larkin LPN - 10/20/2017 3:24 PM CDT Patient called . Scheduled Ct scan 10/29 , want RX Valium "clostophobic" she said she will jump at the table. Wants RX called in to [facility] pharmacy. Reroute to resident manager infusion for RX in this encounter Plan of Treatment Date Type Specialty Care Team Description 01/02/2018 Surgery Benito Albrecht MD ESOPHAGOGASTRODUODENOSCOP [address] Y ENDOSCOPIC ULTRASOUND MS [address] [place] [address] 01/02/2018 Procedure Pass 01/02/2018 Hospital Benito Albrecht MD Weight loss Encounter [address] MS [address] [place] [address] as of this encounter Visit Diagnoses Not on filein this encounter
--- OUTSIDE RECORDS SUMMARY | 2018-01-01 10:19 | XMS REPORT | Encounter Summary ---
Author Author [facility] Organization [facility] Address Unknown Phone Unavailable Care Team Providers Care Grocery Stocker Name Role Phone Apoorva Shane MD Unavailable Edgardo Torres MD Unavailable Amanda Bhandari Unavailable Montana Villasenor MD Unavailable Gilles Nses MD Unavailable Rain Tariq MD Unavailable Harika Hsu MD Unavailable Nayana Mccarty RN Unavailable Unavailable Symone Lee Unavailable Unavailable Sukumar Mondragon APRN PCP Encounter Details Date Type Department Care Team Description 10/03/2017 Hospital [facility] Elisabet, AKHIL Patel Abnormal weight loss Encounter [facility] 1st fl [address] [place] [address] [place] [address] [phone] Social History Tobacco Use Types Packs/Day Years [...] 10 mg by mouth mg tablet daily. montelukast (SINGULAIR) Take 10 mg by [...] mouth 11/13/2017 0.5 mg tablet twice daily. busPIRone (BUSPAR) 5 mg Take 5 mg by mouth daily. 10/29/2017 tablet calcium carbonate Take 1,250 mg by mouth 11/13/2017 (OS-DEAN) 1250 mg tablet daily. cephalexin (KEFLEX) 250 Take 1 capsule by mouth 2 capsule 0 201711/13/2017 mg capsule twice daily. estradiol (ESTRACE) 0.01 Insert or [...] by mouth 11/13/2017 400 mg tablet daily. metoclopramide (REGLAN) 1 Take 5 mL by mouth before 600 mL 1 201710/29/2017 mg/mL oral meals and at bedtime. solutionIndications: [...] 01/02/2018 Surgery Benito Albrecht MD ESOP[facility]AG[facility]GASTR[facility]ODENOSCOP [address] [facility] MS [address] [place] [address] 01/02/2018 Procedure Pass 01/02/2018 Hospital Benito Albrecht MD [facility] loss Encounter [address] [facility] [address] [place] [address] as of this encounter Procedures Procedure Name Priority Date/Time Associated Diagnosis Comments TSH WITH FREE T4 REFLEX Routine 10/03/2017 [...] type Gastroparesis in this encounter Results * TSH WITH FREE T4 REFLEX (10/03/2017 9:50 AM) TSH 2.770 0.35 - 5.00 MCU/ML [facility] Specimen Blood Performing Organization Address City/State/Zipcode Phone Number MAIN LAB [address] [place] [address] * LIPASE (10/03/2017 9:50 AM) Lipase 53 11 - 82 U/L [facility] Specimen Blood Performing Organization Address [facility] Phone Number [facility] [address] [place] [address] * AMYLASE (10/03/2017 9:50 AM) Amylase 39 24 - 100 U/L [facility] Specimen Blood Performing Organization Address [facility] Phone Number [facility] [address] [place] [address] * COMPREHENSIVE METABOLIC PANEL (10/03/2017 9:50 AM) [...] for questions. Specimen Blood Performing Organization Address City/[facility]/Zipcode Phone Number [facility] [address] [place] [address] in this encounter Visit Diagnoses Diagnosis Weight loss, unintentional Loss of weight Chronic diarrhea Diarrhea Nausea and vomiting, intractability of vomiting not specified, unspecified vomiting type Gastroparesis Admitting Diagnoses Diagnosis Abnormal weight loss Noninfective gastroenteritis and colitis, unspecified Nausea with vomiting, unspecified
--- OUTSIDE RECORDS SUMMARY | 2018-01-01 10:19 | XMS REPORT | Encounter Summary ---
Author Author [facility] Organization [facility] Address Unknown Phone Unavailable Care Team Providers Care Finishing Pan Operator Name Role Phone Apoorva Shane MD Unavailable Edgadro Torres MD Unavailable Utech, Amanda TAPER AND FLOATER Unavailable Montana Villasenor MD Unavailable Gilles Ness MD Unavailable Rain Tariq MD Unavailable Harika Hsu MD Unavailable Nayana Mccarty RN Unavailable Unavailable Symone Lee Unavailable Unavailable Sukumar Mondragon APRN PCP Reason for Referral * Radiology Services Status Reason Specialty Diagnoses / Referred By Referred To Procedures Contact Contact No Auth Needed Radiology Diagnoses Utech, Amanda, Mob Ct Weight loss, TAPER AND FLOATER [address] unintentional [address] OFF[address]LDG Chronic diarrhea Bl[address] 2ND FLOOR Nausea and MS [address] [place], [place] vomiting, [place] [address] intractability [address] Phone: of vomiting not specified, unspecified Fax: vomiting type [phone] ABD/PELV W CONTRAST CT ABD/PELV WO/W CONTRAST Reason for Visit * Reason Comments Vomiting * Consult, Test & Treat (Routine) Status Reason Specialty Diagnoses / Referred By Referred To Procedures Contact Contact No Auth Needed Gastroenterology Diagnoses Montana Villasenor [facility] gastroparesis MD Ortho and Medical [address] [place] [address] Pav[address] Level [address] [place], [place] [address] [address] [place] Phone: [phone] Phone: Encounter Details Date Type Department Care Team Description 10/03/2017 Office Visit [facility] Amanda Bhandari ARNP Weight loss, Physicians [address] unintentional (Primary Ortho and Medical MS [address] D[place]); Pavilion [address] [place] [address] Chronic diarrhea; [address] [phone] Nausea and vomiting, [place] [phone] vomiting not specified, unspecified vomiting type; Gastroparesis [...] to cancel/reschedule please call radiology scheduling at [phone]. 2) Lab orders have been placed for [...] concerns please contact my nurse, Krystin, at [phone] Metoclopramide tablets Brand Name: Reglan What is [...] the advice of your doctor or health residential care officer. A special MedGuide will be given to you by the pharmacist with each prescription and refill. Be sure to read this information carefully each time. Talk to your bath mixer regarding the use of this medicine in children. Special care may be needed. What side effects may I notice from receiving this medicine? Side effects that you should report to your doctor or health residential care officer as soon as possible: allergic reactions like [...] attention (report to your doctor or health residential care officer if they continue or are bothersome): change [...] high fever. Ask your doctor or health residential care officer for advice. You may get drowsy or [...] pharmacist, or health care provider. Copyright 2018 [employer] in this encounter Progress Notes * Amanda [...] back to by Dr. Villasenor/General Surgeon in [place], [place]. She states her chronic GI symptoms [...] workup: Performed by Dr. Montana Villasenor in [place], [place] 02/22/15 - COLON - prep was [...] were negative for H. pylori and Celaya's. 06/2017 - EGD - class B reflux [...] [address] ENDOSCOPIC ULTRASOUND MS [address] [place] [address] [phone] 01/02/2018 Procedure Pass 01/02/2018 Hospital Benito Albrecht MD Weight loss Encounter [address] MS [address] [place] [address] [phone] as of this encounter Results * CT ABD/PELV W [...] on 10/29/2017 8:20 AM. Performing Organization Address City/[facility]/[place]ustcode Phone Number [facility] RESULTS * TSH WITH FREE T4 REFLEX (10/03/2017 9:50 AM) TSH 2.770 0.35 - 5.00 MCU/ML [facility] Specimen Blood Performing Organization Address City/[facility]/[place] Phone Number [facility] [address] [place] [address] * LIPASE (10/03/2017 9:50 AM) Lipase 53 11 - 82 U/L [facility] Specimen Blood Performing Organization Address City/[facility]/[place] Phone Number [facility] [address] [place] [phone] * AMYLASE (10/03/2017 9:50 AM) Amylase 39 24 - 100 U/L [facility] Specimen Blood Performing Organization Address [facility]/[place] Phone Number [facility] [address] [place] [address] * COMPREHENSIVE METABOLIC PANEL (10/03/2017 9:50 AM) [...] for questions. Specimen Blood Performing Organization Address City/State/Zipcode Phone Number MAIN LAB [address] [place] [address] in this encounter Visit Diagnoses Diagnosis Weight loss, unintentional - Primary Loss of weight Chronic diarrhea Diarrhea Nausea and vomiting, intractability of vomiting not specified, unspecified vomiting type Gastroparesis
--- OUTSIDE RECORDS SUMMARY | 2018-01-01 10:20 | XMS REPORT ---
Author Author Israel Alvarez Organization [facility] Address [address] [place], [place] [id number] Care Team Providers Care Transplant Coordinator Name Role Phone Israel Alvarez PCP Allergies and Adverse Reactions Name Reaction Notes ibuprofen rash Triple Antibiotic rash Plan of Treatment Planned Activity Comments Planned Date Planned Time Plan/Goal Needle electromyography for guidance in conjunction w/ chemodenervation 11/06 12:00 AM IM Injection 08/02/2014 12:00 AM *Injection,Subcutaneous/ Intramuscular 08/02/2014 12:00 AM Medications Active Name Start Date Estimated Completion Date SIG Comments Singulair 10 mg oral tablet take 1 tablet (10 mg) by oral route once daily in the evening Spiriva with HandiHaler 18 mcg inhalation capsule, w/inhalation device inhale 1 capsule (18 mcg) by inhalation route once daily Symbicort 160-4.5 mcg/actuation inhalation HFA aerosol inhaler inhale 2 puffs by inhalation route 2 times per day in the morning and evening donepezil 10 mg oral tablet take 1 tablet (10 mg) by oral route once daily in the evening Eliquis 5 mg oral tablet take 1 tablet (5 mg) by oral route 2 times per day Namenda 10 mg oral tablet take 1 tablet (10 mg) by oral route q hs ropinirole 2 mg oral tablet 1 tab po q hs tramadol 50 mg oral tablet take 2 tablets by oral route 3 times a day oxycodone-acetaminophen 10-325 mg oral tablet take 1 tablet by oral route every 6 hours as needed metoclopramide HCl 5 mg oral tablet take 1 tablet (5 mg) by oral route once daily omeprazole 40 mg oral capsule,delayed release(DR/EC) take 1 capsule (40 mg) by oral route once daily before a meal trazodone 150 mg oral tablet take 1 tablet by oral route daily diltiazem HCl 240 mg oral capsule,extended release 24 hr take 1 capsule (240 mg) by oral route once daily baclofen 20 mg oral tablet take 1 tablet (20 mg) by oral route 3 times per day Myrbetriq 50 mg oral tablet extended release 24 hr take 1 tablet (50 mg ) by oral route once daily swallowing whole with water. Do not crush, chew and/ or divide. sertraline 100 mg oral tablet take 1 tablet (100 mg) by oral route once daily Zantac Maximum Strength 150 mg oral tablet take 2 tablets (300 mg) by oral route once daily at bedtime Name Start Date Expiration Date SIG Comments [...] 155b Units today. Need 1 Vial 1 [id number] hydrocodone-acetaminophen 7.5-500 mg oral tablet 08/06/2012 09/05/2012 take 1 tablet by oral route every 4-6 hours as needed for pain for 30 days sumatriptan succinate 6 mg/0.5 mL subcutaneous cartridge 08/19/2012 09/18/2012 INJECT 1 DOSE (6 MG/0.5 ML) - MAY REPEAT IN 1 HOUR IF PAIN RETURNS OR INCREASES IN SEVERITY (MAX OF 2 DOSES IN 24 HOURS) Fiorinal-Codeine #3 [id number] mg oral capsule 04/30/2012 05/11/2012 take 1 capsule (60-71-972-40 mg) by oral route every 4 hours [...] attack;may repeat after 2 hours if h Botox 200 unit injection recon soln 06/13/2017 09/11/2017 INject 155 units into 31 sites as per migraine prophylaxis protocol. Injection done by experienced provider. Discontinued Name Start Date Discontinued Date SIG [...] by oral route 2 times per day Lomotil 2.5-0.025 mg oral tablet 11/06/2017 take 2 tablets (5 mg) by oral route 4 times per day as needed Nitrostat 0.4 mg sublingual tablet, sublingual 11/06/2017 place 1 tablet ( 0.4 mg) by buccal route at the first sign of an attack; no more than 3 tabs are recommended within a 15 minute period. Xanax 0.5 mg oral tablet 06/03/2012 take [...] by oral route 2 times per day Zocor 20 mg oral tablet 11/06/2017 take 1 tablet (20 mg) by oral route once daily in the evening temazepam 30 mg oral capsule 05/31/2013 take [...] simon given to patient Fioricet with Codeine 70-692-80-30 mg oral capsule 04/13/2013 08/03/2013 take 1 [...] first food, beverage, or medication of day Pristiq 100 mg oral tablet extended release 24 hr 11/06/2017 take 1 tablet ( 100 mg) by oral route once daily gabapentin 300 mg oral capsule 10/29/2013 take [...] by oral route 3 times per day gabapentin 800 mg oral tablet 11/06/2017 take 1 tablet by oral route 3 times a day methocarbamol 750 mg oral tablet 11/06/2017 take 1 tablet by oral route 3 times a day primidone 250 mg oral tablet 11/06/2017 take 1 tablet (250 mg) by oral route 3 times per day for maintenance Topamax 50 mg oral tablet 11/06/2017 take 1 tablet (50 mg) by oral route 2 times per day Imitrex 100 mg oral tablet 11/06/2017 take 1 tablet (100 mg) by oral route once with fluids as early as possible after the onset of a migraine attack;may repeat after 2 hours if headache returns, not to exceed 200mg in 24hrs Tessalon Perles 100 mg oral capsule 11/06/2017 take 1 capsule (100 mg) by oral route 3 times per day naproxen 250 mg oral tablet 10/24/2017 11/06/2017 take 1 tablet by oral route As needed for persistent migraine symptoms. Problem List Description Status Onset Arthritis unspecified [...] 164 lbs 64 in 28.1502 kg/m 1.8328 m 08/20/2011 9:34:00 AM 132 mmHg [...] AM Botox Toxin Type A, 1 unit [id number] Reviewed 01/03/2015 12:00 AM CHEMODENERV [facility] MIGRAINE Reviewed 02/02/2015 12:00 AM Pain Management Reviewed 02/02/2015 12:00 AM Occupational Therapy Consult Reviewed 02/02/2015 12:00 AM Kenalog, Per 10 Mg [facility]#2065-8642-56 Reviewed 02/02/2015 12:00 AM DRAIN/INJ JOINT/BURSA W/O US Reviewed 04/10/2015 12:00 AM Botox Toxin Type A, 1 unit [id number] Reviewed 04/10/2015 12:00 AM CHEMODENERV MUSC MIGRAINE Reviewed 11/17/2015 12:00 AM INJ TRIGGER POINT 1/2 MUSCL Reviewed 08/06/2011 12:00 AM N BLOCK INJ OCCIPITAL Reviewed 08/06/2011 12:00 AM Phenergan 25 Mg Im [facility] [address]-81 (Physiatry) Reviewed 08/06/2011 12:00 AM Toradol 15 Mg,[facility]#[id number] Reviewed 08/20/2011 12:00 AM N BLOCK INJ OCCIPITAL Reviewed 08/20/2011 12:00 AM INJECT TRIGGER POINTS 3/> Reviewed 09/17/2011 12:00 AM INJECT TRIGGER POINTS 3/> Reviewed 09/17/2011 12:00 AM N BLOCK INJ OCCIPITAL Reviewed 10/01/2011 12:00 AM INJECT TRIGGER POINTS 3/> Reviewed 10/15/2011 12:00 AM INJECT TRIGGER POINTS 3/> Reviewed 10/15/2011 12:00 AM Imitrex 6mg [facility] #63613-116-59 Reviewed 10/15/2011 12:00 AM Imitrex, 6mg [facility]#: [id number] Reviewed 11/04/2011 12:00 AM INJECT TRIGGER POINTS 3/> Reviewed 11/04/2011 12:00 AM Imitrex 6mg [facility] #25573-401-78 Reviewed 11/04/2011 12:00 AM N BLOCK INJ OCCIPITAL Reviewed 11/04/2011 12:00 AM DRAIN/INJ JOINT/BURSA W/O US Reviewed 12/05/2011 12:00 AM INJECT TRIGGER POINTS 3/> Reviewed 12/05/2011 12:00 AM N BLOCK INJ OCCIPITAL Reviewed 12/19/2011 12:00 AM INJECT TRIGGER POINTS 3/> Reviewed 12/19/2011 12:00 AM Imitrex 6mg [facility] #59471-792-24 Reviewed 12/19/2011 12:00 AM THER/PROPH/DIAG INJ SC/IM Reviewed 12/19/2011 12:00 AM Imitrex, 6mg [facility]#: 2993-0208-96 Reviewed 01/02/2012 12:00 AM INJECT TRIGGER POINTS 3/> Reviewed 01/02/2012 12:00 AM Imitrex 6mg [facility] #41798-978-97 Reviewed 01/02/2012 12:00 AM THER/PROPH/DIAG INJ SC/IM Reviewed 01/02/2012 12:00 AM Imitrex, 6mg [facility]#: 9488-0843-27 Reviewed 01/02/2012 12:00 AM N BLOCK INJ [...] Reviewed 02/06/2012 12:00 AM Imitrex, 6mg [facility]#: 0472-1297-94 Reviewed 02/06/2012 12:00 AM Imitrex 6mg [facility] #40951-672-76 Reviewed 02/06/2012 12:00 AM Therapeutic, prophylactic or diagnostic injection (specify substance or drug); subcutaneous or intramuscular Reviewed 03/03/2012 12:00 AM THER/PROPH/DIAG INJ SC/IM Reviewed 03/03/2012 12:00 AM Imitrex, 6mg [facility]#: 4282-3714-02 Reviewed 03/03/2012 12:00 AM N BLOCK OTHER PERIPHERAL Reviewed 03/03/2012 12:00 AM INJECT TRIGGER POINTS 3/> Reviewed 03/17/2012 12:00 AM THER/PROPH/DIAG INJ SC/IM Reviewed 03/17/2012 12:00 AM Imitrex, 6mg ND#: 6790-6640-98 Reviewed 03/17/2012 12:00 AM Norflex, Up to 60 Mg [facility]#73139-239-27 Reviewed 03/26/2012 12:00 AM INJECT TRIGGER POINTS 3/> Reviewed 03/26/2012 12:00 AM INJECTION,MARCAINE/BUPIVACAINJ [facility] [address]-30 ([place]) Reviewed 03/26/2012 12:00 AM Imitrex 6mg [facility] #40576-486-88 Reviewed 03/26/2012 12:00 AM Norflex, Up to 60 Mg [facility]#37892-208-22 Reviewed 04/29/2017 12:00 AM CHEMODENERV MUSC MIGRAINE Reviewed 04/14/2012 12:00 AM THER/PROPH/DIAG INJ SC/IM Reviewed 04/14/2012 12:00 AM Imitrex, 6mg ND#: 3120-3032-19 Reviewed 04/14/2012 12:00 AM THER/PROPH/DIAG INJ SC/IM Reviewed 04/14/2012 12:00 AM Norflex, Up to 60 Mg [facility]#84773-634-53 Reviewed 04/14/2012 12:00 AM N BLOCK INJ OCCIPITAL Reviewed 04/14/2012 12:00 AM INJECT TRIGGER POINTS 3/> Reviewed 04/14/2012 12:00 AM Bupivicaine, 30 ml ND#4345-5319-29 Reviewed 05/06/2012 12:00 AM Bupivicaine, 30 ml [facility]#7982-2139-83 Reviewed 05/06/2012 12:00 AM INJECT TRIGGER POINTS 3/> Reviewed 05/06/2012 12:00 AM Norflex, Up to 60 Mg [facility]#60929-427-94 Reviewed 05/06/2012 12:00 AM Imitrex 6mg [place] #38947-374-54 Reviewed 05/06/2012 12:00 AM N BLOCK INJ OCCIPITAL Reviewed 05/06/2012 12:00 AM Kenalog, Per 10 Mg [facility]#0393-5224-22 Reviewed 05/21/2012 12:00 AM Truman Chemodenervation muscle(s); muscle(s) innervated by facial Reviewed 05/21/2012 12:00 AM TRUMAN CHEMODENERVATION MUSCLE(S); NECK MUSCLE(S)(EG, FOR SPASMODIC Reviewed 05/21/2012 12:00 AM BOTULINUM TOXIN TYPE A, PER UNIT-Botox [facility] [id number] Huizar Reviewed 06/03/2012 12:00 AM INJECT TRIGGER POINTS 3/> Reviewed 06/03/2012 12:00 AM Bupivicaine, 30 ml ND#3396-6388-20 Reviewed 06/03/2012 12:00 AM Imitrex 6mg [facility] #09096-403-21 Reviewed 06/03/2012 12:00 AM Norflex, Up to 60 Mg ND#05368-416-38 Reviewed 06/03/2012 12:00 AM THER/PROPH/DIAG INJ SC/IM Reviewed 06/03/2012 12:00 AM Imitrex, 6mg ND#: 1682-0092-95 Reviewed 06/03/2012 12:00 AM Norflex, Up to 60 Mg [facility]#07415-697-04 Reviewed 08/06/2017 12:00 AM CHEMODENERV MUSC MIGRAINE Reviewed 08/06/2017 12:00 AM Destruction of nerve by injection of botulinum toxin Reviewed 08/06/2017 12:00 AM Destruction of spinal cervical nerve by injection of botulinum toxin Reviewed 07/01/2012 12:00 AM INJECT TRIGGER POINTS 3/> Reviewed 07/01/2012 12:00 AM Bupivicaine, 30 ml [facility]#4598-2685-37 Reviewed 07/01/2012 12:00 AM N BLOCK INJ OCCIPITAL Reviewed 07/07/2012 12:00 AM THER/PROPH/DIAG INJ SC/IM Reviewed 07/07/2012 12:00 AM Imitrex, 6mg ND#: 9980-5219-47 Reviewed 07/07/2012 12:00 AM Toradol 15 Mg ND#6948-8541-37 Reviewed 07/15/2012 12:00 AM INJECT TRIGGER POINTS 3/> Reviewed 07/15/2012 12:00 AM INJECTION,MARCAINE/BUPIVACAINJ [facility] [address]-15 ([place]) Reviewed 07/15/2012 12:00 AM MASSAGE THERAPY Reviewed 07/15/2012 12:00 AM THER/PROPH/DIAG INJ SC/IM Reviewed 07/15/2012 12:00 AM Imitrex, 6mg ND#: 8540-7902-70 Reviewed 07/15/2012 12:00 AM Norflex, Up to 60 Mg ND#96880-581-35 Reviewed 07/15/2012 12:00 AM Imitrex 6mg ND #92388-461-19 Reviewed 07/15/2012 12:00 AM Norflex, Up to 60 Mg [facility]#01776-348-16 Reviewed 08/06/2012 12:00 AM INJECT TRIGGER POINTS 3/> Reviewed 08/06/2012 12:00 AM N BLOCK INJ OCCIPITAL Reviewed 08/06/2012 12:00 AM THER/PROPH/DIAG INJ SC/IM Reviewed 08/06/2012 12:00 AM Imitrex, 6mg ND#: 4704-3918-21 Reviewed 08/06/2012 12:00 AM Norflex, Up to 60 Mg ND#81953-558-06 Reviewed 08/19/2012 12:00 AM BOTULINUM TOXIN TYPE A, PER UNIT-Botox [facility] [id number] Huizar Reviewed 08/19/2012 12:00 AM Truman Chemodenervation muscle(s); muscle(s) innervated by facial Reviewed 08/19/2012 12:00 AM TRUMAN CHEMODENERVATION MUSCLE(S); NECK MUSCLE(S)(EG, FOR SPASMODIC Reviewed 08/19/2012 12:00 AM Imitrex 6mg ND #94752-782-49 Reviewed 08/19/2012 12:00 AM Norflex, Up to 60 Mg ND#41889-761-39 Reviewed 08/19/2012 12:00 AM THER/PROPH/DIAG INJ SC/IM Reviewed 08/19/2012 12:00 AM Imitrex, 6mg [facility]#: 6276-5030-46 Reviewed 08/19/2012 12:00 AM Norflex, Up to 60 Mg [facility]#66648-472-88 Reviewed 09/02/2012 12:00 AM Bupivicaine, 30 ml [facility]#4926-4078-68 Reviewed 09/02/2012 12:00 AM INJECT TRIGGER POINTS 3/> Reviewed 09/02/2012 12:00 AM Imitrex 6mg [facility] #67039-226-20 Reviewed 09/02/2012 12:00 AM Norflex, Up to 60 Mg [facility]#55774-546-12 Reviewed 09/02/2012 12:00 AM Imitrex, 6mg [facility]#: 4424-8096-81 Reviewed 09/16/2012 12:00 AM THER/PROPH/DIAG INJ SC/IM Reviewed 09/16/2012 12:00 AM Norflex, Up to 60 Mg [facility]#01051-679-26 Reviewed 09/16/2012 12:00 AM INJECT TRIGGER POINTS 3/> Reviewed 09/16/2012 12:00 AM Imitrex 6mg ND #11655-349-21 Reviewed 09/16/2012 12:00 AM Norflex, Up to 60 Mg ND#23769-283-35 Reviewed 11/17/2012 12:00 AM Imitrex 6mg ND #24053-957-23 Reviewed 11/17/2012 12:00 AM THER/PROPH/DIAG INJ SC/IM Reviewed 11/17/2012 12:00 AM Toradol 30 Mg ND#7682-1677-51 Reviewed 11/17/2012 12:00 AM Bupivicaine, 30 ml [facility]#0912-4172-39 Reviewed 11/17/2012 12:00 AM INJECT TRIGGER POINTS 3/> Reviewed 11/17/2012 12:00 AM Imitrex 6mg ND #69321-118-25 Reviewed 11/17/2012 12:00 AM Norflex, Up to 60 Mg ND#77844-051-46 Reviewed 11/17/2012 12:00 AM N BLOCK INJ OCCIPITAL Reviewed 12/01/2012 12:00 AM INJECT TRIGGER POINTS 3/> Reviewed 05/27/2013 12:00 AM THER/PROPH/DIAG INJ SC/IM Reviewed 05/27/2013 12:00 AM Norflex, Up to 60 Mg [facility]#96095-765-68 Reviewed 06/07/2013 12:00 AM INJECT TRIGGER POINTS 3/> Reviewed 06/24/2013 12:00 AM THER/PROPH/DIAG INJ SC/IM Reviewed 06/24/2013 12:00 AM Norflex, Up to 60 Mg [facility]#52515-873-59 Reviewed 06/24/2013 12:00 AM INJECT TRIGGER POINTS 3/> Reviewed 06/24/2013 12:00 AM N BLOCK INJ OCCIPITAL Reviewed 07/08/2013 12:00 AM INJECT TRIGGER POINTS 3/> Reviewed 07/08/2013 12:00 AM THER/PROPH/DIAG INJ SC/IM Reviewed 07/08/2013 12:00 AM Norflex 30 mg IM [facility]#12669-301-57 Reviewed 07/08/2013 12:00 AM THER/PROPH/DIAG INJ SC/IM Reviewed 07/22/2013 12:00 AM INJECT TRIGGER POINTS 3/> Reviewed 07/22/2013 12:00 AM THER/PROPH/DIAG INJ SC/IM Reviewed 07/22/2013 12:00 AM Norflex 30 mg IM [facility]#62590-105-02 Reviewed 07/22/2013 12:00 AM THER/PROPH/DIAG INJ SC/IM Reviewed 08/03/2013 12:00 AM INJ TRIGGER POINT 1/2 MUSCL Reviewed 08/03/2013 12:00 AM THER/PROPH/DIAG INJ SC/IM Reviewed 08/03/2013 12:00 AM Norflex 30 mg IM [facility]#53043-572-20 Reviewed 08/03/2013 12:00 AM Imitrex, 6mg [facility]#: 3386-1367-48 Reviewed 08/24/2013 12:00 AM INJECT TRIGGER POINTS 3/> Reviewed 08/24/2013 12:00 AM THER/PROPH/DIAG INJ SC/IM Reviewed 08/24/2013 12:00 AM Norflex 30 mg IM [facility]#29809-450-74 Reviewed 09/07/2013 12:00 AM INJECT TRIGGER POINTS 3/> Reviewed 09/07/2013 12:00 AM THER/PROPH/DIAG INJ SC/IM Reviewed 09/07/2013 12:00 AM Norflex 30 mg IM [facility]#70812-744-60 Reviewed 09/21/2013 12:00 AM Botox Toxin Type A, 1 unit [id number] Reviewed 09/21/2013 12:00 AM CHEMODENERV MUSC MIGRAINE Reviewed 09/23/2013 12:00 AM INJECT TRIGGER POINTS 3/> Reviewed 11/08/2013 12:00 AM N BLOCK INJ OCCIPITAL Reviewed 11/08/2013 12:00 AM Kenalog, Per 10 Mg [facility]#8854-0270-08 [facility] Medicare Reviewed 12/21/2013 12:00 AM Botox Toxin Type A, 1 unit [id number] Reviewed 12/21/2013 12:00 AM CHEMODENERV MUSC MIGRAINE Reviewed 03/25/2014 12:00 AM THER/PROPH/DIAG INJ SC/IM Reviewed 03/25/2014 12:00 AM Norflex, Up to 60 Mg [facility]#51031-952-45 Reviewed 05/17/2014 12:00 AM Interventional Pain Consult Reviewed 05/17/2014 12:00 AM Occupational Therapy Consult Reviewed 07/12/2014 12:00 AM DRAIN/INJ JOINT/BURSA W/O US Reviewed 07/12/2014 12:00 AM Kenalog, Per 10 Mg [facility]#6737-2819-08 Reviewed 10/11/2014 12:00 AM Botox Toxin Type A, 1 unit [id number] Reviewed 10/11/2014 12:00 AM CHEMODENERV [facility] MIGRAINE Reviewed Results Summary Not available. History [...] 14 2012 3:34PM myofascial pain Apr 14 2013 3:37PM Bilateral greater occipital neuralgia Apr 14 2012 1:29PM myofascial pain Apr 14 2012 3:51PM myofascial pain May 06 2013 2:01PM greater occipital neuralgia May 06 2012 [...] Muscle spasm Mar 25 2014 10:27AM Migraine b 10 2014 8:56AM Chronic low back pain [...] status migrainosus Aug 06 2017 9: 40AM Chronic migraine w/o aura, intractable, w status migrainosus Nov 06 2017 9: 28AM Payers Insurance Name Company Name Plan Name Plan Number Policy Number Policy Group Number Start Date Medicare Part B Medicare [place] [id number] N/A [facility] [id number] N/A Medicare RHC Medicare RHC [id number] Wednesday, 2011 Medicare Part A Medicare - Lab/Xray [id number] Friday, January 052010 Medicare Part B Medicare [place] [id number] Saturday, February 05, 2011 [place] [facility] Medical Assistance Pro [id number] N/A History of Encounters Visit Date Visit Type Provider 11/06/2017 Procedures Israel Alvarez DO 08/06/2017 Procedures Israel Alvarez DO 04/29/2017 Procedures Israel Alvarez DO 03/14/2017 Office visit Israel Alvarez DO 01/31/2017 Procedures Isreal Alvarez DO 11/07/2016 Procedures Ivelisse LANDAVERDE 08/08/2016 [...] Procedures Ivelisse HUNTP 12/21/2013 Office visit Ivelisse LANDAVERDE 11/25/2013 Office [...] Ayers MD 09/16/2012 Office visit Olivia Cisneros KOHINOOR OPERATOR 09/02/2012 Office visit Olivia Cisneros KOHINOOR OPERATOR 08/19/2012 Office visit Olivia Cisneros KOHINOOR OPERATOR 08/06/2012 Office visit Penny Ayers MD 07/15/2012 Office visit Olivia Cisneros KOHINOOR OPERATOR 07/07/2012 Office visit Penny Ayers MD 07/01/2012 Office visit Olivia Cisneros KOHINOOR OPERATOR 06/03/2012 Office visit Olivia Cisneros KOHINOOR OPERATOR 05/21/2012 Office visit Penny Ayers MD 05/06/2012 Office visit Olivia Cisneros KOHINOOR OPERATOR 04/14/2012 Office visit Olivia Cisneros KOHINOOR OPERATOR 03/26/2012 Office visit Olivia Cisneros KOHINOOR OPERATOR 03/17/2012 Office visit Penny Ayers MD 03/03/2012 Office visit Olivia Cisneros KOHINOOR OPERATOR 02/06/2012 Office visit Penny Ayers MD [...]
--- OUTSIDE RECORDS SUMMARY | 2018-01-01 10:22 | XMS REPORT ---
Author Author Israel Alvarez Organization [facility] Address [address] [place], [place] [id number] Care Team Providers Care Industrial Relations Analyst Name Role Phone Israel Alvarez PCP Allergies [...] returns, not to exceed 200mg in 24hrs oxycodone-acetaminophen 10-325 mg oral tablet take 1 tablet by oral route every 6 hours as needed Tessalon Perles 100 mg oral capsule take 1 capsule (100 mg) by oral route 3 times per day naproxen 250 mg oral tablet 10/24/2017 take 1 tablet by oral route As [...] 155b Units today. Need 1 Vial 1 [id number] hydrocodone-acetaminophen 7.5-500 mg oral tablet 08/06/2012 09/05/2012 take 1 tablet by oral route every 4-6 hours as needed for pain for 30 days sumatriptan succinate 6 mg/0.5 mL subcutaneous cartridge 08/19/2012 09/18/2012 INJECT 1 DOSE (6 MG/0.5 ML) - MAY REPEAT IN 1 HOUR IF PAIN RETURNS OR INCREASES IN SEVERITY (MAX OF 2 DOSES IN 24 HOURS) Fiorinal-Codeine #3 [id number] mg oral capsule 04/30/2012 05/11/2012 take 1 capsule (05-80-836-40 mg) by oral route every 4 hours [...] for 30 days as directed on mina smion given to patient Analy with Codeine 91-340-01-30 mg oral capsule 04/13/2013 08/03/2013 take 1 [...] AM Botox Toxin Type A, 1 unit [id number] Reviewed 01/03/2015 12:00 AM CHEMODENERV MUSC MIGRAINE Reviewed 02/02/2015 12:00 AM Pain Management Reviewed 02/02/2015 12:00 AM Occupational Therapy Consult Reviewed 02/02/2015 12:00 AM Kenalog, Per [address] [facility]#[id number] Reviewed 02/02/2015 12:00 AM DRAIN/INJ JOINT/BURSA W/O US Reviewed 04/10/2015 12:00 AM Botox Toxin Type A, 1 unit [id number] Reviewed 04/10/2015 12:00 AM CHEMODENERV MUSC MIGRAINE Reviewed 11/17/2015 12:00 AM INJ TRIGGER POINT 1/2 MUSCL Reviewed 08/06/2011 12:00 AM N BLOCK INJ OCCIPITAL Reviewed 08/06/2011 12:00 AM Phenergan 25 Mg Im [facility] [id number] (Physiatry) Reviewed 08/06/2011 12:00 AM Toradol 15 Mg,[facility]#[id number] Reviewed 08/20/2011 12:00 AM N BLOCK INJ OCCIPITAL Reviewed 08/20/2011 12:00 AM INJECT TRIGGER POINTS 3/> Reviewed 09/17/2011 12:00 AM INJECT TRIGGER POINTS 3/> Reviewed 09/17/2011 12:00 AM N BLOCK INJ OCCIPITAL Reviewed 10/01/2011 12:00 AM INJECT TRIGGER POINTS 3/> Reviewed 10/15/2011 12:00 AM INJECT TRIGGER POINTS 3/> Reviewed 10/15/2011 12:00 AM Imitrex [address]mg [facility] #[id number] Reviewed 10/15/2011 12:00 AM Imitrex, [address] [facility]#: [id number] Reviewed 11/04/2011 12:00 AM INJECT TRIGGER POINTS 3/> Reviewed 11/04/2011 12:00 AM Imitrex [address]mg [facility] #[id number] Reviewed 11/04/2011 12:00 AM N BLOCK INJ OCCIPITAL Reviewed 11/04/2011 12:00 AM DRAIN/INJ JOINT/BURSA W/O US Reviewed 12/05/2011 12:00 AM INJECT TRIGGER POINTS 3/> Reviewed 12/05/2011 12:00 AM N BLOCK INJ OCCIPITAL Reviewed 12/19/2011 12:00 AM INJECT TRIGGER POINTS 3/> Reviewed 12/19/2011 12:00 AM Imitrex [address] [facility] #[id number] Reviewed 12/19/2011 12:00 AM THER/PROPH/DIAG INJ SC/IM Reviewed 12/19/2011 12:00 AM Imitrex, rafaelg [facility]#: [id number] Reviewed 01/02/2012 12:00 AM INJECT TRIGGER POINTS 3/> Reviewed 01/02/2012 12:00 AM Imitrex [address] [facility] #61868-400-25 Reviewed 01/02/2012 12:00 AM THER/PROPH/DIAG INJ SC/IM Reviewed 01/02/2012 12:00 AM Imitrex, rafaelg [facility]#: [id number] Reviewed 01/02/2012 12:00 AM N BLOCK INJ [...] SC/IM Reviewed 02/06/2012 12:00 AM Imitrex, [address] [facility]#: [id number] Reviewed 02/06/2012 12:00 AM Imitrex [address] [facility] #04839-408-67 Reviewed 02/06/2012 12:00 AM Therapeutic, prophylactic or diagnostic injection (specify substance or drug); subcutaneous or intramuscular Reviewed 03/03/2012 12:00 AM THER/PROPH/DIAG INJ SC/IM Reviewed 03/03/2012 12:00 AM Imitrex, [address] [facility]#: [id number] Reviewed 03/03/2012 12:00 AM N BLOCK OTHER PERIPHERAL Reviewed 03/03/2012 12:00 AM INJECT TRIGGER POINTS 3/> Reviewed 03/17/2012 12:00 AM THER/PROPH/DIAG INJ SC/IM Reviewed 03/17/2012 12:00 AM Imitrex, [address] [facility]#: [id number] Reviewed 03/17/2012 12:00 AM Norflex, Up to [address] [facility]#51491-208-47 Reviewed 03/26/2012 12:00 AM INJECT TRIGGER POINTS 3/> Reviewed 03/26/2012 12:00 AM INJECTION,MARCAINE/BUPIVACAINJ [facility] [id number] ([place]) Reviewed 03/26/2012 12:00 AM Imitrex [address] [facility] #73059-950-02 Reviewed 03/26/2012 12:00 AM Norflex, Up to [address] [facility]#55469-423-77 Reviewed 04/29/2017 12:00 AM CHEMODENERV MUSC MIGRAINE Reviewed 04/14/2012 12:00 AM THER/PROPH/DIAG INJ SC/IM Reviewed 04/14/2012 12:00 AM Imitrex, [address] [facility]#: [id number] Reviewed 04/14/2012 12:00 AM THER/PROPH/DIAG INJ SC/IM Reviewed 04/14/2012 12:00 AM Norflex, Up to [address] [facility]#88812-130-29 Reviewed 04/14/2012 12:00 AM N BLOCK INJ OCCIPITAL Reviewed 04/14/2012 12:00 AM INJECT TRIGGER POINTS 3/> Reviewed 04/14/2012 12:00 AM Bupivicaine, [address] [facility]#[id number] Reviewed 05/06/2012 12:00 AM Bupivicaine, [address] [facility]#[id number] Reviewed 05/06/2012 12:00 AM INJECT TRIGGER POINTS 3/> Reviewed 05/06/2012 12:00 AM Norflex, Up to [address] [facility]#76674-516-69 Reviewed 05/06/2012 12:00 AM Imitrex [address] [facility] #48477-033-02 Reviewed 05/06/2012 12:00 AM N BLOCK INJ OCCIPITAL Reviewed 05/06/2012 12:00 AM Kenalog, Per [address] [facility]#2639-9755-45 Reviewed 05/21/2012 12:00 AM Truman Chemodenervation muscle(s); muscle(s) innervated by facial Reviewed 05/21/2012 12:00 AM TRUMAN CHEMODENERVATION MUSCLE(S); NECK MUSCLE(S)(EG, FOR SPASMODIC Reviewed 05/21/2012 12:00 AM BOTULINUM TOXIN TYPE A, PER UNIT-Botox [facility] [id number] Huizar Reviewed 06/03/2012 12:00 AM INJECT TRIGGER POINTS 3/> Reviewed 06/03/2012 12:00 AM Bupivicaine, [address] [facility]#0257-9669-91 Reviewed 06/03/2012 12:00 AM Imitrex 6mg [facility] #44071-620-27 Reviewed 06/03/2012 12:00 AM Norflex, Up to 60 Mg [facility]#97970-504-49 Reviewed 06/03/2012 12:00 AM THER/PROPH/DIAG INJ SC/IM Reviewed 06/03/2012 12:00 AM Imitrex, 6mg [facility]#: 6531-2868-02 Reviewed 06/03/2012 12:00 AM Norflex, Up to 60 Mg [facility]#08445-177-39 Reviewed 08/06/2017 12:00 AM CHEMODENERV MUSC MIGRAINE Reviewed 08/06/2017 12:00 AM Destruction of nerve by injection of botulinum toxin Reviewed 08/06/2017 12:00 AM Destruction of spinal cervical nerve by injection of botulinum toxin Reviewed 07/01/2012 12:00 AM INJECT TRIGGER POINTS 3/> Reviewed 07/01/2012 12:00 AM Bupivicaine, 30 ml [facility]#1487-2883-38 Reviewed 07/01/2012 12:00 AM N BLOCK INJ OCCIPITAL Reviewed 07/07/2012 12:00 AM THER/PROPH/DIAG INJ SC/IM Reviewed 07/07/2012 12:00 AM Imitrex, 6mg [facility]#: 9256-6523-89 Reviewed 07/07/2012 12:00 AM Toradol 15 Mg [facility]#5970-2777-78 Reviewed 07/15/2012 12:00 AM INJECT TRIGGER POINTS 3/> Reviewed 07/15/2012 12:00 AM INJECTION,MARCAINE/BUPIVACAINJ [facility] [address]-14 ([place]unter) Reviewed 07/15/2012 12:00 AM MASSAGE THERAPY Reviewed 07/15/2012 12:00 AM THER/PROPH/DIAG INJ SC/IM Reviewed 07/15/2012 12:00 AM Imitrex, 6mg [facility]#: 5772-[address]-35 Reviewed 07/15/2012 12:00 AM Norflex, Up to 60 Mg [facility]#33320-959-30 Reviewed 07/15/2012 12:00 AM Imitrex 6mg [facility] #16216-240-83 Reviewed 07/15/2012 12:00 AM Norflex, Up to 60 Mg [facility]#66097-427-75 Reviewed 08/06/2012 12:00 AM INJECT TRIGGER POINTS 3/> Reviewed 08/06/2012 12:00 AM N BLOCK INJ OCCIPITAL Reviewed 08/06/2012 12:00 AM THER/PROPH/DIAG INJ SC/IM Reviewed 08/06/2012 12:00 AM Imitrex, 6mg [facility]#: 0975-3781-65 Reviewed 08/06/2012 12:00 AM Norflex, Up to 60 Mg [place]#52851-332-65 Reviewed 08/19/2012 12:00 AM BOTULINUM TOXIN TYPE A, PER UNIT-Botox [facility] [id number] Huizar Reviewed 08/19/2012 12:00 AM Truman Chemodenervation muscle(s); muscle(s) innervated by facial Reviewed 08/19/2012 12:00 AM TRUMAN CHEMODENERVATION MUSCLE(S); NECK MUSCLE(S)(EG, FOR SPASMODIC Reviewed 08/19/2012 12:00 AM Imitrex 6mg [place] #04821-901-80 Reviewed 08/19/2012 12:00 AM Norflex, Up to 60 Mg [facility]#66701-049-70 Reviewed 08/19/2012 12:00 AM THER/PROPH/DIAG INJ SC/IM Reviewed 08/19/2012 12:00 AM Imitrex, 6mg [facility]#: 7196-4789-27 Reviewed 08/19/2012 12:00 AM Norflex, Up to 60 Mg [facility]#94111-628-23 Reviewed 09/02/2012 12:00 AM Bupivicaine, 30 ml [facility]#7450-1011-81 Reviewed 09/02/2012 12:00 AM INJECT TRIGGER POINTS 3/> Reviewed 09/02/2012 12:00 AM Imitrex 6mg [facility] #74381-677-49 Reviewed 09/02/2012 12:00 AM Norflex, Up to 60 Mg [facility]#03659-682-31 Reviewed 09/02/2012 12:00 AM Imitrex, 6mg [facility]#: 7038-0364-26 Reviewed 09/16/2012 12:00 AM THER/PROPH/DIAG INJ SC/IM Reviewed 09/16/2012 12:00 AM Norflex, Up to 60 Mg [facility]#83548-036-75 Reviewed 09/16/2012 12:00 AM INJECT TRIGGER POINTS 3/> Reviewed 09/16/2012 12:00 AM Imitrex 6mg [facility] #71475-376-16 Reviewed 09/16/2012 12:00 AM Norflex, Up to [address] [facility]#30717-187-87 Reviewed 11/17/2012 12:00 AM Imitrex [address] [facility] #55226-363-09 Reviewed 11/17/2012 12:00 AM THER/PROPH/DIAG INJ SC/IM Reviewed 11/17/2012 12:00 AM Toradol [address] [facility]#[id number] Reviewed 11/17/2012 12:00 AM Bupivicaine, [address] [facility]#[id number] Reviewed 11/17/2012 12:00 AM INJECT TRIGGER POINTS 3/> Reviewed 11/17/2012 12:00 AM Imitrex [address] [facility] #18054-495-12 Reviewed 11/17/2012 12:00 AM Norflex, Up to [address] [facility]#10367-899-02 Reviewed 11/17/2012 12:00 AM N BLOCK INJ OCCIPITAL Reviewed 12/01/2012 12:00 AM INJECT TRIGGER POINTS 3/> Reviewed 05/27/2013 12:00 AM THER/PROPH/DIAG INJ SC/IM Reviewed 05/27/2013 12:00 AM Norflex, Up to [address] [facility]#14864-952-79 Reviewed 06/07/2013 12:00 AM INJECT TRIGGER POINTS 3/> Reviewed 06/24/2013 12:00 AM THER/PROPH/DIAG INJ SC/IM Reviewed 06/24/2013 12:00 AM Norflex, Up to [address] [facility]#26056-775-06 Reviewed 06/24/2013 12:00 AM INJECT TRIGGER POINTS 3/> Reviewed 06/24/2013 12:00 AM N BLOCK INJ OCCIPITAL Reviewed 07/08/2013 12:00 AM INJECT TRIGGER POINTS 3/> Reviewed 07/08/2013 12:00 AM THER/PROPH/DIAG INJ SC/IM Reviewed 07/08/2013 12:00 AM Norflex 30 mg IM [facility]#97437-499-93 Reviewed 07/08/2013 12:00 AM THER/PROPH/DIAG INJ SC/IM Reviewed 07/22/2013 12:00 AM INJECT TRIGGER POINTS 3/> Reviewed 07/22/2013 12:00 AM THER/PROPH/DIAG INJ SC/IM Reviewed 07/22/2013 12:00 AM Norflex 30 mg IM [facility]#76955-714-89 Reviewed 07/22/2013 12:00 AM THER/PROPH/DIAG INJ SC/IM Reviewed 08/03/2013 12:00 AM INJ TRIGGER POINT 1/2 MUSCL Reviewed 08/03/2013 12:00 AM THER/PROPH/DIAG INJ SC/IM Reviewed 08/03/2013 12:00 AM Norflex 30 mg IM [facility]#95812-619-18 Reviewed 08/03/2013 12:00 AM Imitrex, [address]mg [facility]#: [id number] Reviewed 08/24/2013 12:00 AM INJECT TRIGGER POINTS 3/> Reviewed 08/24/2013 12:00 AM THER/PROPH/DIAG INJ SC/IM Reviewed 08/24/2013 12:00 AM Norflex 30 mg IM [facility]#34731-669-92 Reviewed 09/07/2013 12:00 AM INJECT TRIGGER POINTS 3/> Reviewed 09/07/2013 12:00 AM THER/PROPH/DIAG INJ SC/IM Reviewed 09/07/2013 12:00 AM Norflex 30 mg IM [facility]#51951-264-30 Reviewed 09/21/2013 12:00 AM Botox Toxin Type A, 1 unit [id number] Reviewed 09/21/2013 12:00 AM CHEMODENERV MUSC MIGRAINE Reviewed 09/23/2013 12:00 AM INJECT TRIGGER POINTS 3/> Reviewed 11/08/2013 12:00 AM N BLOCK INJ OCCIPITAL Reviewed 11/08/2013 12:00 AM Kenalog, Per [address] [facility]#[id number] [facility] Medicare Reviewed 12/21/2013 12:00 AM Botox Toxin Type A, 1 unit [id number] Reviewed 12/21/2013 12:00 AM CHEMODENERV MUSC MIGRAINE Reviewed 03/25/2014 12:00 AM THER/PROPH/DIAG INJ SC/IM Reviewed 03/25/2014 12:00 AM Norflex, Up to [address] [facility]#18987-466-71 Reviewed 05/17/2014 12:00 AM Interventional Pain Consult Reviewed 05/17/2014 12:00 AM Occupational Therapy Consult Reviewed 07/12/2014 12:00 AM DRAIN/INJ JOINT/BURSA W/O US Reviewed 07/12/2014 12:00 AM Kenalog, Per [address] [facility]#3991-7834-28 Reviewed 10/11/2014 12:00 AM Botox Toxin Type A, 1 unit [id number] Reviewed 10/11/2014 12:00 AM CHEMODENERV MUSC MIGRAINE [...] syndrome Feb 2013 8:27AM Depression and anxiety b 2013 8:27AM myofascial pain Jun 07 2013 [...] pain Feb 2014 8:56AM Memory difficulties b 10 2014 8:56AM Muscle tension headache b 10 2014 8:56AM Myofascial muscle pain Feb [...] Date Medicare Part B [place] [id number] Saturday, 2011 [facility] [id number] N/A Medicare [facility] Medicare [facility] [id number] Wednesday, 2011 Medicare Part A Medicare - Lab/Xray [id number] Friday, January 052010 [place] [facility] [employer] [facility] [place] [employer] [facility] [id number] N/A History of Encounters Visit Date Visit Type Provider 08/06/2017 Procedures Israel Alvarez DO 04/29/2017 Procedures Israel Alvarez DO 03/14/2017 Office visit Israel Alvarez DO 01/31/2017 Procedures Israel Alvarez DO 11/07/2016 Procedures Ivelisse HUNTP 08/08/2016 Procedures Ivelisse HUNTP 05/09/2016 Procedures Ivelisse HUNTP 02/08/2016 Procedures Ivelisse HUNTP 11/17/2015 Office visit Ivelisse LANDAVERDE 11/09/2015 Procedures Ivelisse HUNTP 08/10/2015 Procedures Ivelisse [...] visit Ivelisse LANDAVERDE 06/24/2013 Office visit Ivelisse Bruce PACKAGE CRIMPER 06/07/2013 Office visit Ivelisse Bruce PACKAGE CRIMPER 05/27/2013 Office visit Penny Ayers MD 12/01/2012 Office visit Ivelisse Bruce PACKAGE CRIMPER 11/17/2012 Office visit Penny Ayers MD 09/16/2012 Office visit Olivia Cisneros LOBSTERMAN 09/02/2012 Office visit Olivia Cisneros LOBSTERMAN 08/19/2012 Office visit Olivia Cisneros LOBSTERMAN 08/06/2012 Office visit Penny Ayers MD 07/15/2012 Office visit Olivia Cisneros LOBSTERMAN 07/07/2012 Office visit Penny Ayers MD 07/01/2012 Office visit Olivia Cisneros LOBSTERMAN 06/03/2012 Office visit Olivia Cisneros LOBSTERMAN 05/21/2012 Office visit Penny Ayers MD 05/06/2012 Office visit Olivia Cisneros LOBSTERMAN 04/14/2012 Office visit Olivia Cisneros LOBSTERMAN 03/26/2012 Office visit Olivia Cisneros LOBSTERMAN 03/17/2012 Office visit Penny Ayers MD 03/03/2012 Office visit Olivia Cisneros LOBSTERMAN 02/06/2012 Office visit Penny Ayers MD 01/21/2012 [...]
--- OUTSIDE RECORDS SUMMARY | 2018-01-01 11:18 | XMS REPORT ---
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 Active 98972138 Problem Colon polyp K63.5 Active 45238710 Problem Screening breast examination Z12.39 Active 028862152 Problem Bilateral low back pain without sciatica M54.5 Active 909212290 Problem Postmenopausal Z78.0 Active 43758150 Problem Essential tremor G25.0 Active 13221966 Problem Osteopenia M85.80 Active 671189128 Problem Hyperlipidemia E78.5 Active 70840441 Problem Cigarette nicotine dependence without complication F17.210 Active 99388768 Problem Vascular dementia without behavioral disturbance F01.50 Active 87401348676783333 Problem Arthritis M19.90 Active 4159871 Problem Chronic atrial fibrillation I48.2 Active 431315262 Problem Dementia without behavioral disturbance, unspecified dementia type F03.90 Active 52271184 Problem Other chronic pancreatitis K86.1 Active 849481685 Problem Xeroderma Q80.9 Active 81253972 Problem Chronic obstructive pulmonary disease with acute lower respiratory infection J44.0 Active 031785019 Problem Type 2 diabetes mellitus with diabetic neuropathy, without long-term current use of insulin E11.40 Active 74322819 Problem Atherosclerosis of [place] artery of both lower extremities with intermittent claudication I70.213 Active 364392356388886 Problem Hammertoe of right foot M20.41 Active 630368488 Problem Hammertoe of left foot M20.42 Active 818589097 Problem Migraine without aura and with status migrainosus, not intractable G43.001 Active 018914554 Problem Migraine without aura and without status migrainosus, not intractable G43.009 Active 830265898 Problem Major depressive disorder, recurrent episode, moderate F33.1 Active 127774422 Problem Unspecified psychosis F29 Active 36842658 Problem Cervicalgia M54.2 Active 5047117143648 Problem Diabetic polyneuropathy associated with type 2 diabetes mellitus E11.42 Active 16240884 Problem COPD (chronic obstructive pulmonary disease) J44.9 Active 78352916 Problem Atherosclerotic heart disease of [place]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 I25.118 Active 4916255796364 Problem Gastroparesis K31.84 Active 597497910 Problem Stress incontinence of urine N39.3 Active 12485347 Problem Osteoporosis M81.0 Active 81116670 Problem Controlled type 2 diabetes mellitus without complication, without long -term current use of insulin E11.9 Active 541702577 Problem Barretts esophagus K22.70 Active 498749664 Problem Chronic fatigue R53.82 Active 08689385 Problem History of common bile duct surgery Z98.89 Active 494958729 Problem Bipolar affective disorder, currently depressed, moderate F31.32 Active 191353470 Problem Generalized anxiety disorder F41.1 Active 844961520 Problem Gastroesophageal reflux disease, esophagitis presence not specified K21.9 Active 017295415 Problem Coronary artery disease involving [place] coronary artery of [place] 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 I25.118 Active 2159602954441 Problem Postconcussion syndrome F07.81 Active 21368758 Problem Chronic pain syndrome G89.4 Active 834507763 Problem Type 2 diabetes mellitus with diabetic peripheral angiopathy without gangrene E11.51 Active 827791852 Problem Paroxysmal atrial fibrillation I48.0 Active 169195647 Problem Unspecified atherosclerosis of [place] arteries of extremities, unspecified extremity I70.209 Active 963532846612623 Problem Acute exacerbation of chronic obstructive pulmonary disease (COPD) J44.1 Active 358785190 Problem Crohn''s disease without complication, unspecified gastrointestinal tract location K50.90 Active 20968470 ALLERGIES No Information ENCOUNTERS Encounter Location Date Diagnosis [facility] [address] [facility]NOTE [address] [id number] [address] Feb, [facility] [id number] [address] Dec, [facility] [address] [facility]NOTE [facility]] [id number] [address] 2642 Dec, [facility] [address] [address] 9[address] 18 Dec, 2017 [facility] [id number] [place] [address] 81835- 7377 14 Dec, 2017 [facility] [id number] [place] [address] 90664- 0465 14 Dec, 2017 [place] [id number] [place] [address] 83646- 9326 13 Dec, 2017 [facility] [id number] [place] [address] 81289- 3846 13 Dec, 2017 Type 2 diabetes mellitus with diabetic peripheral angiopathy without gangrene E11.51 ; Contusion of face, initial encounter S00.83XA and Bronchitis J40 [place] [id number] [place] [address] 91817- 8130 10 Dec, 2017 [place] [id number] [place] [address] 28886- 7149 06 Dec, 2017 [place] [id number] [place] [address] 22744- 4013 Nov, [place] [id number] [place] [address] 79658- 5756 Nov, Onychomycosis B35.1 ; Hammertoe of left foot M20.42 ; Hammertoe of right foot M20.41 and Type 2 diabetes mellitus with diabetic neuropathy, without long-term current use of insulin E11.40 [place] [id number] [place] [address] 67754- 8034 Nov, [place] [id number] [place] [address] 65360- 8989 Nov, Bronchitis J40 [facility] [id number] [place] [address] 38045- 6897 Oct, [place] [id number] [place] [address] 40649- 7718 Oct, Bipolar affective disorder, currently depressed, moderate F31.32 ; Vascular dementia without behavioral disturbance F01.50 and Generalized anxiety disorder F41.1 [facility] [id number] [place] [address] 59860- 2670 Oct, [facility] [id number] [place] [address] 24878- 4766 Oct, [facility] [id number] [place] [address] 67595- 6629 Oct, Edema of both legs R60.0 [facility] [id number] [place] [address] 94354- 2867 Oct, [facility] [id number] [place] [address] 31592- 8871 Sep, [facility] [id number] [place] [address] 73153- 0396 Sep, [facility] [id number] [place] [address] 89466- 8621 Sep, [facility] [id number] [place] [address] 94040- 7277 Sep, Encounter for well woman exam with routine gynecological exam Z01.419 ; Screening for STDs (sexually transmitted diseases) Z11.3 ; Screening breast examination Z12.31 and Overweight (BMI 25.0-29.9) E66.3 [facility] [address] [place] [address] 15014- 4249 Sep, [facility] [id number] [place] [address] 23678- 0804 Sep, [facility] [id number] [place] [address] 17755- 6936 Sep, [facility] [id number] [place] [address] 18000- 3941 August, [facility] [address] [place] [address] 68714- 4640 August, [facility] [address], [place] [address] 6684 August, Type 2 diabetes mellitus with diabetic neuropathy, without long-term current use of insulin E11.40 and Sprain of right ankle, unspecified ligament, initial encounter S93.401A [facility] [id number] [place] [address] 96639- 5697 August, [facility] [id number] [place] [address] 37036- 0158 August, [facility] [id number] [place] [address] 05612- 8858 August, [facility] [id number] [place] [address] 99120- 9413 August, Gastroesophageal reflux disease, esophagitis presence not specified K21.9 [facility] [id number] [place] [address] 98576- 5917 August, [facility] [id number] [place] [address] 81339- 9671 August, [facility] [id number] [place] [address] 19795- 4883 August, [facility] [id number] [place] [address] 66006- 6825 August, Type 2 diabetes mellitus with diabetic neuropathy, without long-term current use of insulin E11.40 and Elevated liver enzymes R74.8 [facility] [address] [place] [address] 8821 Jul, [facility] [id number] [place] [address] 18266- 4341 Jul, Cough R05 [facility] [id number] [place] [address] 69650- 7509 Jul, [facility] [id number] [place] [address] 17952- 3238 Jul, [facility] [address] 18359- 0765 Jul, Bipolar affective disorder, currently depressed, moderate F31.32 ; Vascular dementia without behavioral disturbance F01.50 and Generalized anxiety disorder F41.1 [facility] [address] 69013- 0702 Jul, [facility] [address] 66704- 3980 Jul, Type 2 diabetes mellitus with diabetic neuropathy, without long-term current use of insulin E11.40 and Elevated liver enzymes R74.8 [place] [address] 52655- 2680 Jul, [facility] [address] 40301- 2604 Jul, [place] [address] 69411- 5798 Jul, [facility] [address] 95387- 6714 Jul, Post-menopausal Z78.0 [facility] [address] 06829- 4927 Jul, Stress incontinence of urine N39.3 [place] [id number] [place] [address] 17859- 0194 Jul, [facility] [address] 83041- 3305 Jul, [facility] [id number] [place] [address] 28018- 8084 Jul, Stress incontinence of urine N39.3 and Cough R05 [facility] [id number] [place] [address] 49000- 9742 Jul, [facility] [address] 60745- 0502 Jul, [facility] [address], [place] [address]- 1196 Jul, [facility] [id number] [place] [address] 19644- 0818 Jul, Gastroesophageal reflux disease, esophagitis presence not specified K21.9 [facility] [id number] [place] [address] 94237- 4544 Jun, Diabetic polyneuropathy associated with type 2 diabetes mellitus E11.42 [facility] [id number] [place] [address] 36197 2540 Jun, Diabetic polyneuropathy associated with type 2 diabetes mellitus E11.42 ; Coronary artery disease involving [place] coronary artery of [place] 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 I25.118 and Paroxysmal atrial fibrillation I48.0 [facility] [id number] [place] [address] 23001- 4335 Jun, [facility] [id number] [place] [address] 43153 2545 Jun, [facility] [id number] [place] [address] 87028 254 Jun, Gastroenteritis K52.9 [facility] [id number] [place] [address] 81339 2546 Jun, Gastroenteritis K52.9 [facility] [address], [place] [address] 2541 Jun, [facility] [id number] [place] [address] 24569 254 Jun, [facility] [address], [place] [address] 2540 Jun, Sprain of right ankle, unspecified ligament, initial encounter S93.401A ; Type 2 diabetes mellitus with diabetic neuropathy, without long-term current use of insulin E11.40 ; Atherosclerosis of [place] artery of both lower extremities with intermittent claudication I70.213 ; Atherosclerotic heart disease of [place]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 I25.118 ; Chronic atrial fibrillation I48.2 and Crohn''s disease without complication, unspecified gastrointestinal tract location K50.90 [facility] [id number] [place] [address] 80557 -0935 17 Jun, 2017 Cough R05 and Chronic obstructive pulmonary disease with acute lower respiratory infection J44.0 [facility] [id number] [place] [address] 50674- 5495 Jun, [facility] [address] 69525- 8972 Jun, Coughing R05 ; Unspecified atherosclerosis of [place] arteries of extremities, unspecified extremity I70.209 ; Type 2 diabetes mellitus with diabetic peripheral angiopathy without gangrene E11.51 ; Crohn''s disease without complication, unspecified gastrointestinal tract location K50.90 ; Other chronic pancreatitis K86.1 and Chronic atrial fibrillation I48.2 [facility] [id number] [place] [address] 71479 -0082 Jun, [place] [id number] [place] [address] 40253- 5629 Jun, Bipolar affective disorder, currently depressed, moderate F31.32 ; Vascular dementia without behavioral disturbance F01.50 and Generalized anxiety disorder F41.1 [address] [id number] [place] [address] 82881- 0221 May, Generalized anxiety disorder F41.1 [place] [id number] [place] [address] 15391- 8176 May, [place] [id number] [place] [address] 23129- 4025 May, [place] [address] 32137- 6306 15 May, 2017 Coughing R05 [place] [id number] [place] [address] 39793- 8951 09 May, 2017 [place] [id number] [place] [address] 82371- 3939 May, Bipolar affective disorder, currently depressed, moderate F31.32 ; Vascular dementia without behavioral disturbance F01.50 and Generalized anxiety disorder F41.1 [address] [place] [id number] [place] [address] 62162- 3277 Apr, Generalized anxiety disorder F41.1 [place] [id number] [place] [address] 77453- 6310 Apr, [place] [id number] [place] [address] 13833- 4836 Apr, Vascular dementia without behavioral disturbance F01.50 ; Generalized anxiety disorder F41.1 and Bipolar affective disorder, currently depressed, moderate F31.32 [place] [id number] [place] [address] 42127- 4869 Apr, Generalized anxiety disorder F41.1 [facility] [id number] [place] [address] 33207 -5201 Apr, Cough R05 and Acute exacerbation of chronic obstructive pulmonary disease (COPD) J44.1 [place] [id number] [place] [address] 88730- 9158 Apr, [facility] [id number] [place] [address] 54332 -0847 Mar, Cough R05 and Cigarette nicotine dependence without complication F17.210 [place] [id number] [place] [address] 71229- 9530 Mar, [place] [id number] [place] [address] 98003- 0657 Feb, Generalized anxiety disorder F41.1 ; Major depressive disorder, recurrent episode, moderate F33.1 ; Vascular dementia without behavioral disturbance F01.50 and Unspecified psychosis F29 [place] [id number] [place] [address] 57953- 0103 Feb, [address] [id number] [place] [address] 03968- 6721 Feb, [place] [id number] [place] [address] 65958- 4276 Feb, Generalized anxiety disorder F41.1 [place] [id number] [place] [address] 84844- 5704 Feb, Generalized anxiety disorder F41.1 [place] [address] 72968- 8776 Feb, Dizziness R42 ; Chronic fatigue R53.82 ; Postconcussion syndrome F07.81 ; Fall, initial encounter W19.XXXA and Disorientation R41.0 [place] [address] 49964- 1335 Feb, Postconcussion syndrome F07.81 ; Injury of head, initial encounter S09.90XA ; Fall, initial encounter W19.XXXA ; Disorientation R41.0 and Acute cystitis with hematuria N30.01 [address] [id number] [place] [address] 60243- 4854 Jan, Gastroesophageal reflux disease, esophagitis presence not specified K21.9 ; Post-menopausal Z78.0 and Migraine without aura and without status migrainosus, not intractable G43.009 [place] [id number] [place] [address] 32414- 9960 Jan, [place] [id number] [place] [address] 09441- 5906 Jan, Generalized anxiety disorder F41.1 ; Major depressive disorder, recurrent episode, moderate F33.1 ; Vascular dementia without behavioral disturbance F01.50 and Unspecified psychosis F29 [address] [place] [id number] [place] [address] 18623- 1338 Jan, Pneumonia of left lower lobe due to infectious organism J18.1 [place] [id number] [place] [address] 76027- 6043 Jan, Migraine without aura and with status migrainosus, not intractable G43.001 [facility] [address] [place] [address] 08084 -2145 04 Jan, 2017 Migraine without aura and without status migrainosus, not intractable G43.009 [facility] [id number] [place] [address] 64786- 2400 19 Dec, 2016 Hematoma T14.8 [facility] [id number] [place] [address] 54831- 4364 12 Dec, 2016 [facility] [id number] [place] [address] 70165 -8490 Nov, Fatigue, unspecified type R53.83 [place] [id number] [place] [address] 72555- 2619 Nov, Scabies B86 and Coronary artery disease involving [place] coronary artery of [place] 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 I25.118 [place] [id number] [place] [address] 54615- 4633 Nov, [place] [id number] [place] [address] 75608- 4702 Nov, [place] [id number] [place] [address] 59062- 8768 Oct, [place] [id number] [place] [address] 61496- 1986 Oct, Generalized anxiety disorder F41.1 and Major depressive disorder, recurrent episode, moderate F33.1 [place] [id number] [place] [address] 74773- 8815 Oct, Cramp of both lower extremities R25.2 [place] [address] 69691- 3853 18 Oct, 2016 Leg cramps R25.2 [place] [id number] [place] [address] 66696- 5914 17 Oct, 2016 Chronic pain syndrome G89.4 [place] [address], [place] [address]- 4494 17 Oct, 2016 [facility] [id number] [place] [address] 29759- 5260 14 Oct, 2016 [facility] [id number] [place] [address] 10618- 3660 11 Oct, 2016 Routine gynecological examination Z01.419 and Screening for breast cancer Z12.31 [place] [id number] [place] [address] 72790- 3419 28 Sep, 2016 Diarrhea R19.7 [place] [id number] [place] [address] 75720- 8180 26 Sep, 2016 Back pain M54.9 [place] [id number] [place] [address] 64710- 4849 12 Sep, 2016 [place] [id number] [place] [address] 33452- 6375 Sep, [facility] [id number] [place] [address] 91487 -3260 August, Xeroderma Q80.9 [place] [id number] [place] [address] 16924- 3298 August, Dementia without behavioral disturbance, unspecified dementia type F03.90 [place] [id number] [place] [address] 97958- 7695 August, Chronic pain syndrome G89.4 [facility] [id number] [place] [address] 68297- 3538 August, [facility] [id number] [place] [address] 39554- 1256 August, Hyperlipidemia E78.5 ; Other fatigue R53.83 and Other specified hypotension I95.89 [facility] [address] [place] [address] 51621 -0160 August, Dysuria R30.0 ; Other fatigue R53.83 and Other specified hypotension I95.89 [facility] [id number] [place] [address] 60761- 3925 August, [facility] [id number] [place] [address] 19909- 8225 Jul, Pain in left knee M25.562 and Gastroenteritis K52.9 [place] [address] 45957- 7337 Jul, [facility] [id number] [place] [address] 63782- 6491 Jul, Diarrhea R19.7 [facility] [address] 88827 -5829 Jul, Spider bite, accidental or unintentional, initial encounter T63.301A [place] [id number] [place] [address] 57576- 7317 Jul, Primary osteoarthritis of right knee M17.11 and Arthritis M19.90 [place] [id number] [place] [id number] Jul, Generalized anxiety disorder F41.1 and Major depressive disorder, recurrent episode, moderate F33.1 [place] [address] [place] [id number] [place] [address] Jul, Type 2 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 and Temporal headache R51 [place] [address] [id number] [place] [address] Jul, Back pain M54.9 [facility] [id number] [place] [phone] Jul, [place] [address] [address] [id number] [place] [address] Jul, [facility] [id number] [place] [address] Jun, Nausea R11.0 [facility] [address] [place] [id number] [place] [address] 31782 -1912 Jun, Acute suppurative otitis media of both ears without spontaneous rupture of tympanic membranes, recurrence not specified H66.003 and COPD exacerbation J44.1 [place] [address] [place] [id number] [place] [address] 82643- 2542 Jun, Generalized anxiety disorder F41.1 [place] [address] 22377- 5839 16 Jun, 2016 [facility] [place] [address] 99976 -8726 Jun, [facility] [place] [address] 58490 -7144 Jun, Shortness of breath R06.02 and COPD exacerbation J44.1 [place] [address] 33004- 8014 Jun, Eczema, unspecified type L30.9 [place] [address] 53210- 0266 Jun, [place] [address] 48000- 1961 May, [place] [address] 96958- 9316 May, Muscle cramping R25.2 [place] [address] 76074- 3485 May, [place] [address] 39415- 1888 Apr, Diarrhea R19.7 [place] [address] 28869- 3336 Apr, [place] [address] 95774- 8334 Apr, Chronic pain syndrome G89.4 [place] [address] 72415- 1387 16 Apr, 2016 Cramp of both lower extremities R25.2 and Vascular dementia without behavioral disturbance F01.50 [place] [address] 76221- 5031 Apr, Type 2 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 and Cigarette nicotine dependence without complication F17.210 [place] [address] 04629- 2712 Mar, Generalized anxiety disorder F41.1 [place] [address] 21242- 7020 Feb, Generalized anxiety disorder F41.1 and Major depressive disorder, recurrent episode, moderate F33.1 [place] [address] 81282- 7707 Feb, [facility] [address] 32335 -6564 Feb, Dysuria R30.0 and Acute cystitis with hematuria N30.01 [place] [address] 06628- 3703 Jan, [place] [address] 12631- 9875 Jan, [place] [address] 95353- 0724 Jan, [place] [address] 27225- 9670 Jan, [facility] [address] 90915 -4744 10 Jan, 2016 Wasp sting, accidental or unintentional, initial encounter T63.461A [place] [address] 82713- 1021 06 Jan, 2016 Encounter for immunization Z23 [place] [address] 34657- 7601 Jan, [facility] [address] [id number] [place] [address] 82416- 3043 Jan, [facility] [address] [id number] [place] [address] 08064- 5437 28 Dec, 2015 Generalized anxiety disorder F41.1 and Major depressive disorder, recurrent episode, moderate F33.1 [facility] [address] [place] [id number] [place] [address] 72298- 5518 21 Dec, 2015 Routine gynecological examination Z01.419 ; Postmenopausal Z78.0 ; Screening breast examination Z12.39 ; Osteopenia M85.80 and Breast cancer screening Z12.39 [place] [address] [place] [id number] [place] [address] 88936- 5730 20 Dec, 2015 [facility] [address] [id number] [place] [address] 15823- 4224 19 Dec, 2015 [facility] [address] [id number] [place] [address] 60459- 1383 16 Dec, 2015 [facility] [address] [id number] [place] [address] 67470- 2812 16 Dec, 2015 [facility] [address] [place] [id number] [place] [address] 70183- 6582 14 Dec, 2015 [facility] [id number] [place] [address] 45493- 7579 Dec, [facility] [id number] [place] [address] 10002- 2960 Nov, [facility] [address] [address] Nov, Cough R05 ; Other viral agents as the cause of diseases classified elsewhere B97.89 and Acute upper respiratory infection, unspecified J06.9 [facility] [address], [place] [address]- 2076 Nov, [facility] [address] [place] [id number] [address]- 2938 Nov, [facility] [address], [place] [address]- 5761 Nov, [facility] [address], [place] [address]- 9361 Nov, [facility] [address], [place] [address]- 2926 Nov, [facility] [address], [place] [address]- 4306 Oct, [facility] [id number] [place] [address] 04385- 3829 Oct, [facility] [address], [place] [address]- 8793 Oct, [facility] [id number] [place] [address] 04542- 6466 Oct, Chronic pain syndrome G89.4 [facility] [address], [place] [address]- 1801 Sep, Generalized anxiety disorder F41.1 and Major depressive disorder, recurrent episode, moderate F33.1 [facility] [address], [place] [address]- 6174 Sep, [facility] [address] [address]- 6133 Sep, [facility] [address], [place] [address]- 2745 14 Sep, 2015 Generalized anxiety disorder F41.1 [facility] [address], [place] [address]- 6634 13 Sep, 2015 Cramp of both lower extremities R25.2 and Cervicalgia M54.2 [facility] [address], [place] [address]- 1742 06 Sep, 2015 Generalized anxiety disorder F41.1 [facility] [address] [place] [place] [id number] [place] [address] 32584- 2949 Sep, [facility] [address] [id number] [place] [address] 82850 -0950 August, Rash R21 ; Itching L29.9 and Allergic response, subsequent encounter T78.40XD [place] [address] [place] [id number] [place] [address] 88220- 2492 August, Primary insomnia F51.01 [facility] WALK IN [facility] [address] [id number] [place] [address] 05221 -8172 August, Rash R21 ; Itching L29.9 and Allergic response, initial encounter T78.40XA [place] [address] [place] [id number] [place] [address] 52588- 4625 August, [place] [address] [place] [id number] [place] [address] 17694- 1649 August, Cramp of both lower extremities R25.2 [place] [address] [place] [id number] [place] [address] 03569- 0471 August, Back pain M54.9 [place] [address] [place] [id number] [place] [address] 48883- 5113 August, [place] [address] [place] [id number] [place] [address] 11792- 1911 August, [facility] [address] [place] [id number] [place] [address] 61104 -6810 August, Cramp of both lower extremities R25.2 [place] [address] [place] [id number] [place] [address] 99760- 6638 August, [place] [address] [place] [id number] [place] [address] 57852- 1477 August, Syncope R55 ; Paroxysmal atrial fibrillation I48.0 ; Dementia without behavioral disturbance, unspecified dementia type F03.90 and Chronic pain syndrome G89.4 [place] [address] [place] [id number] [place] [address] 33304- 5409 August, Type 2 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 and Syncope R55 [facility] [address] [place] [id number] [place] [address] 55920- 2986 Jul, [facility] [address] [place] [id number] [place] [address] 84874- 2714 Jul, [facility] [address] [place] [id number] [place] [address] 45811- 9953 Jul, [facility] [address] [place] [id number] [place] [address] 48309- 6988 Jul, [facility] [address] [place] [id number] [place] [address] 22638- 8799 Jul, [facility] [address] [place] [id number] [place] [address] 55877- 7253 Jul, UTI (urinary tract infection) N39.0 [facility] [address] [place] [id number] [place] [address] 94142- 6140 Jul, [facility] [address] [place] [id number] [place] [address] 27095- 5276 Jul, Major depressive disorder, recurrent episode, moderate F33.1 and Generalized anxiety disorder F41.1 [facility] [address] [place] [id number] [place] [address] 83860- 5881 Jul, Generalized anxiety disorder F41.1 [facility] [id number] [place] [address] 60091- 7445 Jul, Diarrhea R19.7 [facility] [address] [place] [id number] [place] [address] 99174 2546 Jul, [facility] [id number] [place] [address] 01494- 9158 Jun, [facility] [id number] [place] [address] 36197- 8136 Jun, Eczema L30.9 [facility] [address] [facility] [id number] [address] 2546 Jun, [facility] [address] [address]- 0426 Jun, COPD (chronic obstructive pulmonary disease) J44.9 [facility] [address], [place] [address] 2546 Jun, [facility] [address] [address] 2546 Jun, Major depressive disorder, recurrent episode, moderate F33.1 and Generalized anxiety disorder F41.1 [facility] [address], [place] [address]- 0246 May, [facility] [address], [place] [address]- 7766 May, UTI (urinary tract infection) N39.0 [facility] [address] [address] 2546 May, [facility] [address], [place] [address]- 6966 May, [facility] [address], [place] [address] 2546 May, [facility] [address], [place] [address] 2546 May, [facility] [address], [place] [address] 2546 Apr, Major depressive disorder, recurrent episode, moderate F33.1 and Generalized anxiety disorder F41.1 [facility] [address], [place] [address]- 2786 Apr, COPD (chronic obstructive pulmonary disease) J44.9 [facility] [address], [place] [address] 2546 Apr, [facility] [address], [place] [address]- 3025 Apr, Atrial flutter I48.92 [facility] [address] [place] [id number] [place] [address] 79701- 9586 Apr, [facility] [address] [place] [id number] [place] [address] 07104- 3115 Apr, [facility] [address] [place] [id number] [place] [address] 63981- 5883 Mar, [facility] [address] [place] [id number] [place] [address] 88230- 8366 Mar, [facility] [address] [place] [id number] [place] [address] 03142- 0101 Mar, [facility] [address] [place] [id number] [place] [address] 39693- 8779 Mar, Hyperlipidemia E78.5 ; Type 2 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 ; Major depressive disorder, recurrent episode, moderate F33.1 and Chronic pain syndrome G89.4 [facility] [address] [place] [id number] [place] [address] 72485- 3262 Mar, [facility] [address] [id number] [place] [address] 48312- 9982 Mar, [facility] [id number] [place] [address] 69883- 3491 Mar, [facility] [id number] [place] [address] 09772- 0459 Mar, [facility] [id number] [place] [address] 65184- 4631 Feb, COPD (chronic obstructive pulmonary disease) J44.9 and Back pain M54.9 [facility] [address], [place] [address]- 9242 Feb, [facility] [id number] [place] [address] 34401- 1107 Feb, [facility] [address], [place] [address]- 1495 Feb, [facility] [id number] [place] [address] 33693- 6614 Feb, [facility] [id number] [address]- 1864 Feb, [facility] [address] [id number] [place] [address] 21942- 8036 Feb, [facility] [address] [id number] [place] [address] 96934- 5472 Feb, [facility] [address] [id number] [place] [address] 28086- 9587 Feb, [facility] [address] [id number] [place] [address] 11833- 5722 Feb, Diabetes E11.9 ; Back pain M54.9 and COPD (chronic obstructive pulmonary disease) J44.9 [facility] [address] [id number] [place] [address] 71649- 1750 Jan, [facility] [id number] [place] [address] 15892- 1006 Jan, Major depression, recurrent F33.9 and Generalized anxiety disorder F41.1 [facility] [id number] [place] [address] 83716- 4674 Jan, Chronic pain G89.29 [facility] [address], [place] [address]- 8601 Jan, [facility] [address] [id number] [place] [address] 11524- 7396 Jan, [facility] [address], [place] [address]- 5391 Jan, [facility] [id number] [place] [address] 77943- 0193 Jan, [facility] [id number] [place] [address] 16648- 4125 Jan, Nicotine dependence F17.200 [facility] [id number] [place] [address] 49865- 9533 Jan, Nicotine dependence F17.200 and Back pain M54.9 [facility] [id number] [place] [address] 89280- 3957 Jan, [facility] [id number] [place] [address] 93495- 4240 28 Dec, 2014 [facility] [id number] [place] [address] 57665- 3574 25 Dec, 2014 Anxiety, generalized 300.02 and Major depression, recurrent 296.30 [facility] [id number] [place] [address] 50720- 5388 24 Dec, 2014 [facility] [id number] [place] [address] 84801- 7326 21 Dec, 2014 [facility] [id number] [place] [address] 17228- 5516 17 Dec, 2014 [facility] [id number] [place] [address] 71001- 1415 15 Dec, 2014 [facility] [id number] [place] [address] 99317- 2027 14 Dec, 2014 [facility] [id number] [place] [address] 50798- 0733 11 Dec, 2014 [facility] [id number] [place] [address] 88283- 4025 10 Dec, 2014 [facility] [id number] [place] [address] 30040- 0991 08 Dec, 2014 Skin tear 879.8 [facility] [id number] [place] [address] 95600- 0336 08 Dec, 2014 Routine gynecological examination V72.31 ; Breast cancer screening V76.10 and Family history of breast cancer in first degree relative V16.3 [facility] [address], [place] [address]- 5199 Dec, [facility] [id number] [place] [address] 43867- 4720 Dec, [facility] [id number] [place] [address] 12296- 3412 Nov, [facility] [id number] [place] [address] 03624- 5903 Nov, [facility] [id number] [place] [address] 12166- 6755 Nov, Poor balance 781.99 and Vascular dementia, uncomplicated 290.40 [facility] [id number] [place] [address] 48309- 7855 Nov, [facility] [id number] [place] [address] 01077- 1064 Nov, Major depression, recurrent 296.30 and Anxiety, generalized 300.02 [facility] [id number] [place] [address] 69051- 2541 Nov, [facility] [id number] [place] [address] 87849- 6259 Nov, [facility] [id number] [place] [address] 10651- 3802 Nov, [facility] [id number] [place] [address] 18292- 7693 Nov, [facility] [id number] [place] [address] 98087- 6455 Nov, Vascular dementia, uncomplicated 290.40 and Lumbago 724.2 [facility] [id number] [place] [address] 93022- 8821 Nov, [facility] [id number] [place] [address] 35747- 5614 Nov, [facility] [address], [place] [address]- 6498 Nov, [facility] [address], [place] [address]- 2815 Oct, [facility] [address], [place] [address]- 6026 Oct, [facility] [id number] [address]- 2341 Oct, [facility] [address], [place] [address]- 0959 Oct, COPD (chronic obstructive pulmonary disease) 496 and Hyperlipidemia 272.4 [facility] [address], [place] [address]- 8650 Oct, Major depression, recurrent 296.30 and Anxiety, generalized 300.02 [facility] [address], [place] [address]- 6337 Oct, [facility] [address], [place] [address]- 1981 Oct, [facility] [address], [place] [address]- 9366 Oct, [facility] [address] [address]- 3097 Sep, Lumbago 724.2 and Anxiety state, unspecified 300.00 [facility] [address], [place] [address]- 8256 Sep, [facility] [address] [address]- 1772 Sep, [facility] [id number] [address]- 4775 August, [facility] [id number] [address]- 7447 August, Major depression, recurrent 296.30 ; Anxiety, generalized 300.02 and No condition on [place] II V71.09 [facility] [address] [place] [address]- 3717 August, [facility] [address] [facility]NOTE 3] [id number] [place] [address]- 2276 August, [facility] [address] [address]- 1538 Jul, [facility] [address] [facility]NOTE 3] [id number] [place] [address]- 5411 Jul, [facility] [id number] [place] [address], [place] [address]- 9116 Jul, [facility] [id number] [address] Jun, [facility] [address] [id number] [place] [address] Jun, [facility] [address] [id number] [address] Jun, [facility] [id number] [place] [address] 27 Jun, 2014 [facility] [address] [id number] [address] Jun, [facility] [id number] [place] [address] Jun, [facility] [address] [id number] [address] 23 Jun, 2014 [facility] [id number] [place] [address] 17 Jun, 2014 [facility] [address] [facility]NOTE 3] [id number] [id number] [address] Jun, [facility] [id number] [address] [address] Jun, [facility] [place] [facility] [address] [id number] [place] [address]- [address] 10 Jun, 2014 [facility] [place] [facility] [address] [id number] [place] [address]- [address] 10 Jun, 2014 [facility] [place] [facility] [address] [id number] [place] [address]- [address]83 07 Jun, 2014 [facility] [place] [facility] [address] [id number] [place] [address]- [address]44 07 Jun, 2014 [facility] [place] [facility] [address] [id number] [place] [address]- [address]167 02 Jun, 2014 [facility] [place] [facility] [address] [id number] [place] [address]- [address]161 02 Jun, 2014 [facility] [place] [facility] [address] [facility][NOTE 3] [id number] [place] [address]- [address]50 23 May, 2014 [facility] [place] [facility] [address] [id number] [place] [address]- 47[address] 23 May, 2014 [facility] [place] [facility] [address] [id number] [place] [address]- 4186 20 May, 2014 [facility] [place] [facility] [address] [facility][NOTE 3] [id number] [place] [address]- [address]706 May, 2014 [facility] [place] [facility] [address] [facility][NOTE 3] [id number] [place] [address]- [address]278 May, 2014 [facility] [place] [facility] [address] [id number] [place] [address]- [address] May, 2014 [facility] [place] [facility] [address] [id number] [place] [address]- [address]65 19 May, 2014 [facility] [place] [facility] [address] [facility][NOTE 3] [id number] [place] [address]- [address]651 12 May, 2014 [facility] [place] [facility] [address] [facility][NOTE 3] [id number] [place] [address]- 1268 11 May, 2014 [facility] [place] [facility] [address] [facility][NOTE 3] [id number] [place] [address]- [address]120 May, 2014 [facility] [place] [facility] [address] [id number] [place] [address]- [address] May, 2014 [facility] [place] [facility] [address] [id number] [place] [address]- [address]26 May, 2014 [facility] [place] [facility] [address] [id number] [place] [address]- [address]146 May, 2014 [facility] [place] [facility] [address] [id number] [place] [address]- [address]17 May, [facility] [place] [facility] [address] [id number] [place] [address]- [address] Apr, [facility] [place] [facility] [address] [id number] [place] [address]- [address] Apr, [facility] [place] [facility] [address] [id number] [place] [address]- [address] Apr, [facility] [place] [facility] [address] [id number] [place] [address] Apr, [facility] [place] [facility] [address] [id number] [place] [address] 7878 Apr, [facility] [place] [facility] [address] [id number] [place] [address] 9119 Apr, [facility] [place] [facility] [address] [id number] [place] [address] 0165 Apr, [facility] [place] [facility] [address] [id number] [place] [address]- 7411 Apr, [facility] [place] [facility] [address] [id number] [place] [address]- 4162 Apr, [facility] [place] [facility] [address] [id number] [place] [address]- 5304 Apr, [facility] [place] [facility] [address] [id number] [place] [address]- 6593 Apr, [facility] [place] [facility] [address] [id number] [place] [address]- 6437 Apr, [facility] [place] [facility] [address] [id number] [place] [address]- 3767 Mar, [facility] [place] [facility] [address] [id number] [place] [address] Mar, [facility] [place] [facility] [address] [id number] [place] [address]- 9493 30 Mar, 2014 [facility] [place] [facility] [address] [id number] [place] [address]- 2338 30 Mar, 2014 [facility] [place] [facility] [address] [id number] [place] [address]- 0664 Mar, [facility] [place] [facility] [address] [id number] [place] [address]- 5964 Mar, [facility] [place] [facility] [address] [id number] [place] [address]- 7210 Mar, [facility] [place] [facility] [address] [id number] [place] [address]- 6026 19 Mar, 2014 [facility] [place] [facility] [address] [id number] [place] [address]- 2411 15 Mar, 2014 [facility] [place] [facility] [address] [id number] [place] [address]- 1303 15 Mar, 2014 [facility] [place] [facility] [address] [id number] [place] [address]- 4947 15 Mar, 2014 [facility] [place] [facility] [address] [id number] [place] [address]- 5540 15 Mar, 2014 [facility] [place] [facility] [address] [id number] [place] [address]- 4275 15 Mar, 2014 [facility] [place] [facility] [address] [id number] [place] [address]- 1312 15 Mar, 2014 [facility] [place] [facility] [address] [id number] [place] [address]- 8964 Mar, [facility] [place] [facility] [address] [id number] [place] [address]- 0106 Mar, [facility] [place] [facility] [address] [id number] [place] [address] Mar, [facility] [place] [facility] [address] [id number] [place] [address]- 0060 Mar, [facility] [place] [facility] [address] [id number] [place] [address]- 1763 Mar, [facility] [place] [facility] [address] [id number] [place] [address]- 3201 Mar, [facility] [place] [facility] [address] [id number] [place] [address]- 2763 Feb, [facility] [place] [facility] [address] [id number] [place] [address]- 0948 Feb, [facility] [place] [facility] [address] [id number] [place] [address]- 2012 Feb, [facility] [place] [facility] [address] [id number] [place] [address]- 5219 Feb, [facility] [place] [facility] [address] [facility]NOTE [facility]] [id number] [place] [address]- 8028 Feb, [facility] [place] [facility] [address] [id number] [place] [address]- 0008 Feb, [facility] [place] [facility] [address] [id number] [place] [address]- 6804 Feb, [facility] [place] [facility] [address] [id number] [place] [address]- 3013 Feb, [facility] [place] [facility] [address] [id number] [place] [address]- 1537 Feb, [facility] [place] [facility] [address] [id number] [place] [address]- 1798 Feb, [facility] [place] [facility] [address] [id number] [place] [address]- 8651 Feb, [facility] [place] [facility] [address] [id number] [place] [address]- 3929 Feb, [facility] [place] [facility] [address] [id number] [place] [address]- 4736 Feb, [facility] [place] [facility] [address] [id number] [place] [address]- 0584 Feb, [facility] [place] [facility] [address] [id number] [place] [address]- 5375 Feb, [facility] [place] [facility] [address] [id number] [place] [address]- 6679 Feb, [facility] [place] [facility] [address] [id number] [place] [address]- 4662 Feb, [facility] [place] [facility] [address] [id number] [place] [address]- 4101 Jan, [facility] [place] [facility] [address] [id number] [place] [address]- 1839 Jan, [facility] [place] [facility] [address] [id number] [place] [address]- 9707 Jan, [facility] [place] [facility] [address] [id number] [place] [address]- 9656 Jan, [facility] [place] [facility] [address] [id number] [place] [address]- 2221 Jan, [facility] [place] [facility] [address] [id number] [place] [address]- 4998 Jan, [facility] [place] [facility] [address] [id number] [place] [address]- 4587 Jan, [facility] [place] [facility] [address] [id number] [place] [address]- 5456 Jan, [facility] [place] [facility] [address] [id number] [place] [address]- 5760 Jan, [facility] [place] [facility] [address] [id number] [place] [address]- 1409 Jan, [facility] [place] [facility] [address] [id number] [place] [address]69 Jan, [facility] [place] [facility] [address] [id number] [place] [address]- 5157 Dec, [facility] [place] [facility] [address] [id number] [place] [address]- 6089 Dec, [facility] [place] [facility] [address] [id number] [place] [address]- 2654 Nov, [facility] [place] [facility] [address] [id number] [place] [address]- 3506 Nov, [facility] [place] [facility] [address] [id number] [place] [address]- 6193 Nov, [facility] [place] [facility] [address] [id number] [place] [address]- 5023 Nov, [facility] [place] [facility] [address] [id number] [place] [address]- 1304 Nov, [facility] [place] [facility] [address] [id number] [place] [address]- 7791 Nov, [facility] [place] [facility] [address] [id number] [place] [address]- 5158 Nov, [facility] [place] [facility] [address] [id number] [place] [address]- 6175 Oct, [facility] [place] [facility] [address] [id number] [place] [address]- 7789 Oct, [facility] [place] [facility] [address] [id number] [place] [address]- 6407 Oct, [facility] [place] [facility] [address] [id number] [place] [address]- 7288 Oct, [facility] [place] [facility] [address] [id number] [place] [address]- 5743 30 Sep, 2013 [facility] [place] [facility] [address] [id number] [place] [address]- 0005 30 Sep, 2013 [facility] [place] [facility] [address] [id number] [place] [address]- 3674 Sep, [facility] [place] [facility] [address] [id number] [place] [address]- 4654 Sep, [facility] [place] [facility] [address] [id number] [place] [address]- 8906 Sep, [facility] [place] [facility] [address] [id number] [place] [address]- 6099 Sep, [facility] [place] [facility] [address] [id number] [place] [address]- 5002 Sep, [facility] [place] [facility] [address] [id number] [place] [address]- 9333 Sep, [facility] [place] [facility] [address] [id number] [place] [address]- 9048 Sep, [facility] [place] [facility] [address] [id number] [place] [address]- 2456 Sep, [facility] [place] [facility] [address] [id number] [place] [address]- 4067 Sep, [facility] [place] [facility] [address] [id number] [place] [address]- 7815 Sep, [facility] [place] [facility] [address] [id number] [place] [address]- 2268 Sep, [facility] [place] [facility] [address] [id number] [place] [address]- 7063 Sep, [facility] [place] [facility] [address] [id number] [place] [address]- 3717 August, [facility] [place] [facility] [address] [id number] [place] [address]- 9478 August, [facility] [address] [id number] [place] [address]- 5803 August, [facility] [place] [facility] [address] [id number] [place] [address]- 6271 August, [facility] [place] [facility] [address] [id number] [place] [address]- 5498 August, [facility] [place] [facility] [address] [id number] [place] [address]- 0772 August, [facility] [place] [facility] [address] [id number] [place] [address]- 7876 August, [facility] [place] [facility] [address] [id number] [place] [address]- 1554 August, [facility] [place] [facility] [address] [id number] [place] [address]- 8399 August, [facility] [place] [facility] [address] [id number] [place] [address]- 2886 August, [facility] [place] [facility] [address] [id number] [place] [address]- 5033 August, [facility] [place] [facility] [address] [id number] [place] [address]- 9840 August, [facility] [place] [facility] [address] [id number] [place] [address]- 1864 August, [facility] [place] [facility] [address] [id number] [place] [address]- 5922 August, [facility] [place] [facility] [address] [id number] [place] [address]- 0093 August, [facility] [place] [facility] [address] [id number] [place] [address]- 3133 August, [facility] [place] [facility] [address] [id number] [place] [address]- 8205 August, [facility] [place] [facility] [address] [id number] [place] [address]- 4125 August, [facility] [place] [facility] [address] [id number] [place] [address]- 9274 August, [facility] [place] [facility] [address] [id number] [place] [address]- 5590 Jul, [facility] [place] [facility] [address] [id number] [place] [address]- 5109 Jul, [facility] [place] [facility] [address] [id number] [place] [address]- 7838 Jul, [facility] [place] [facility] [address] [id number] [place] [address]- 0995 Jul, [facility] [place] [facility] [address] [id number] [place] [address]- 4328 Jun, [facility] [place] [facility] [address] [id number] [place] [address]- 6412 Jun, [facility] [place] [facility] [address] [id number] [place] [address]- 4926 Jun, [facility] [place] [facility] [address] [id number] [place] [address]- 3712 Jun, [facility] [place] [facility] [address] [id number] [place] [address]- 0923 Jun, [facility] [place] [facility] [address] [id number] [place] [address]- 9067 Jun, [facility] [place] [facility] [address] [id number] [place] [address]- 9323 Jun, [facility] [place] [facility] [address] [id number] [place] [address]- 2477 Jun, [facility] [place] [facility] [address] [id number] [place] [address]- 7341 Jun, [facility] [place] [facility] [address] [id number] [place] [address]- 4302 Jun, [facility] [place] [facility] [address] [id number] [place] [address]- 8258 May, [facility] [place] [facility] [address] [id number] [place] [address]- 2086 May, [facility] [place] [facility] [address] [id number] [place] [address]- 6736 May, [facility] [place] [facility] [address] [facility]] [id number] [place] [address]- 6596 May, [facility] [place] [facility] [address] [id number] [place] [address]- 4996 May, [facility] [place] [facility] [address] [id number] [place] [address]- 4796 May, [facility] [place] [facility] [address] [facility]] [id number] [place] [address]- 2425 May, [facility] [place] [facility] [address] [id number] [place] [address]- 1868 May, [facility] [place] [facility] [address] [facility]] [id number] [place] [address]- 5527 May, [facility] [place] [facility] [address] [facility]] [id number] [place] [address]- 8131 May, [facility] [place] [facility] [address] [facility]] [id number] [place] [address]- 4402 18 May, 2013 [facility] [place] [facility] [address] [facility]] [id number] [place] [address]- 2541 17 May, 2013 [facility] [place] [facility] [address] [facility]] [id number] [place] [address]- 8551 May, [facility] [place] [facility] [address] [facility]] [id number] [place] [address]- 3661 May, [facility] [place] [facility] [address] [facility]] [id number] [place] [address]- 3474 10 May, 2013 [facility] [place] [facility] [address] [facility]] [id number] [place] [address]- 2546 07 May, 2013 [facility] [address] [id number] [place] [address]- 4926 07 May, 2013 [facility] [address] [id number] [place] [address]- 2546 Apr, [facility] [address] [id number] [place] [address]- 2546 Apr, [facility] [address] [id number] [place] [address]- 2546 Apr, [facility] [address] [id number] [place] [address]- 8806 Apr, [facility] [address] [id number] [place] [address]- 8416 Apr, [facility] [address] [id number] [place] [address]- 8792 Apr, [facility] [address] [id number] [place] [address]- 2077 Apr, [facility] [address] [id number] [place] [address]- 4106 Mar, [facility] [address] [id number] [place] [address]- 7637 Mar, [facility] [address] [id number] [place] [address]- 2546 Mar, [facility] [address] [id number] [place] [address]- 2546 Mar, [facility] [place] [facility] [address] [id number] [place] [address]- 2546 Mar, [facility] [address] [id number] [place] [address]- 2546 Mar, [facility] [address] [id number] [place] [address]- 5853 Mar, [facility] [place] [facility] [address] [id number] [place] [address]- 5539 Mar, [facility] [place] [facility] [address] [id number] [place] [address]- 4158 Mar, [facility] [place] [facility] [address] [id number] [place] [address]- 8732 Mar, [facility] [place] [facility] [address] [id number] [place] [address]- 9858 Mar, [facility] [place] [facility] [address] [id number] [place] [address]- 2182 Feb, [facility] [place] [facility] [address] [id number] [place] [address]- 3167 Feb, [facility] [place] [facility] [address] [id number] [place] [address]- 6562 Feb, [facility] [place] [facility] [address] [id number] [place] [address]- 3124 20 Feb, 2013 [facility] [place] [facility] [address] [id number] [place] [address]- 0806 Feb, [facility] [place] [facility] [address] [id number], [place] [address]- 1111 19 Feb, 2013 [facility] [place] [facility] [address] [id number], [place] [address]- 6986 15 Feb, 2013 [facility] [place] [facility] [address] [id number], [place] [address]- 2157 14 Feb, 2013 [facility] [place] [facility] [address] [id number] [place] [address]- 6657 14 Feb, 2013 [facility] [place] [facility] [address] [id number], [place] [address]- 8979 13 Feb, 2013 [facility] [place] [facility] [address] [id number], [place] [address]- 5714 13 Feb, 2013 [facility] [place] [facility] [address] [id number] [place] [address]- 0682 Feb, [facility] [place] [facility] [address] [id number] [place] [address]- 3749 Feb, [facility] [place] [facility] [address] [id number] [place] [address]- 1447 Feb, [facility] [place] [facility] [address] [id number] [place] [address]- 7687 Feb, [facility] [place] [facility] [address] [id number] [place] [address]- 9158 Feb, [facility] [place] [facility] [address] [id number] [place] [address]- 3606 Jan, [facility] [place] [facility] [address] [id number] [place] [address]- 1184 Jan, [facility] [place] [facility] [address] [id number] [place] [address]- 2675 Jan, [facility] [place] [facility] [address] [id number] [place] [address]- 1142 Jan, [facility] [place] [facility] [address] [id number] [place] [address]- 4051 Jan, [facility] [place] [facility] [address] [id number] [place] [address]- 4543 Jan, [facility] [place] [facility] [address] [id number] [place] [address]- 9597 Jan, [facility] [place] [facility] [address] [id number], [place] [address]- 4819 Jan, [facility] [place] [facility] [address] [id number] [place] [address]- 4912 10 Jan, 2013 [facility] [place] [facility] [address] [id number] [place] [address]- 7905 27 Dec, 2012 [facility] [place] [facility] [address] [id number], [place] [address]- 6531 20 Dec, 2012 [facility] [place] [facility] [address] [id number] [place] [address]- 9519 19 Dec, 2012 [facility] [place] [facility] [address] [id number] [place] [address]- 5536 10 Dec, 2012 [facility] [place] [facility] [address] [id number] [place] [address] 2546 04 Dec, 2012 [facility] [place] [facility] [address] [id number] [place] [address] 2546 03 Dec, 2012 [facility] [place] [facility] [address] [id number] [place] [address] 2545 Nov, [facility] [place] [facility] [address] [id number] [place] [address]- 6954 Nov, [facility] [place] [facility] [address] [id number] [place] [address]- 0581 Nov, [facility] [place] [facility] [address] [id number] [place] [address]- 5838 Nov, [facility] [place] [facility] [address] [id number] [place] [address]- 5720 Nov, [facility] [place] [facility] [address] [id number] [place] [address]- 9676 Nov, [facility] [place] [facility] [address] [id number] [place] [address]- 9346 Nov, [facility] [place] [facility] [address] [id number] [place] [address]- 2545 Nov, [facility] [place] [facility] [address] [id number] [place] [address] 14 Nov, 2012 [facility] [place] [facility] [address] [id number] [place] [address] Nov, [facility] [place] [facility] [address] [id number] [place] [address] 17 Oct, 2012 [facility] [place] [facility] [address] [id number] [place] [address] Oct, [facility] [place] [facility] [address] [id number] [place] [address] Oct, [facility] [place] [facility] [address] [id number] [place] [address] Oct, [facility] [place] [facility] [address] [id number] [place] [address] Oct, [facility] [place] [facility] [address] [id number] [place] [address] Oct, [facility] [place] [facility] [address] [id number] [place] [address] 46[address] Oct, [facility] [place] [facility] [address] [id number] [place] [address] Oct, [facility] [place] [facility] [address] [id number] [place] [address] Sep, [facility] [place] [facility] [address] [id number] [place] [address] Sep, [facility] [place] [facility] [address] [id number] [place] [address]69 Sep, [facility] [place] [facility] [address] [id number] [place] [address]- 37[address] Sep, [facility] [place] [facility] [address] [id number], [place] [address] Sep, [facility] [place] [facility] [address] [id number], [place] [address] Sep, [facility] [place] [facility] [address] [id number] [place] [address] Sep, [facility] [place] [facility] [address] [id number], [place] [address] Sep, [facility] [place] [facility] [address] [id number] [place] [address] August, [facility] [place] [facility] [address] [id number] [place] [address] August, [facility] [address] [id number] [place] [address] August, [facility] [address] [id number] [place] [address] August, [facility] [address] [id number] [place] [address]- 3569 August, [facility] [address] [id number] [place] [address] 69[address] Jul, [facility] [address] [id number] [place] [address] 115[address] Jul, [facility] [address] [id number] [place] [address] Jul, [facility] [address] [id number] [place] [address] Jul, [facility] [address] [id number] [place] [address] 9[address] Jul, [facility] [address] [id number] [place] [address] 87[address] Jun, [facility] [address] [id number] [place] [address] 9615 18 Jun, 2012 [facility] [address] [id number] [place] [address]- [address] 15 Jun, 2012 [facility] [address] [id number] [place] [address] 14 Jun, 2012 [facility] [address] [id number] [place] [address]- 6788 12 Jun, 2012 [facility] [address] [id number] [place] [address] 08 Jun, 2012 [facility] [address] [id number] [place] [address] 08 Jun, 2012 [facility] [address] [id number] [place] [address] 1812 Jun, [facility] [address] [id number] [place] [address] Jun, [facility] [address] [id number] [place] [address] May, [facility] [address] [id number] [place] [address]- 7297 May, [facility] [address] [id number] [place] [address]- 9752 May, [facility] [address] [id number] [place] [address]- 5656 May, [facility] [address] [id number] [place] [address]- 6469 Apr, [facility] [address] [id number] [place] [address]- 2824 Apr, [facility] [address] [id number] [place] [address] 6[address] Apr, [facility] [address] [id number] [place] [address]- 4147 Apr, [facility] [address] [id number] [place] [address]- 5937 Apr, [facility] [address] [id number] [place] [address]- 1775 Apr, [facility] [address] [id number] [place] [address]- [address]144 Apr, [facility] [address] [id number] [place] [address]- [address] Mar, [facility] [address] [place] [id number] Mar, [facility] [address] [id number] [place] [address]- 5612 Mar, [facility] [place] [facility] [address] [id number] [place] [address]- 8086 Mar, [facility] [place] [facility] [address] [id number] [place] [address]- 8046 Mar, [facility] [place] [facility] [address] [id number] [place] [address] Mar, [facility] [place] [facility] [address] [id number] [place] [address]- 5556 Mar, [facility] [place] [facility] [address] [id number] [place] [address]- 4436 Mar, [facility] [place] [facility] [address] [id number] [place] [address] Mar, [facility] [place] [facility] [address] [id number] [place] [address]- 7246 Mar, [facility] [place] [facility] [address] [id number] [place] [address]- 7238 Mar, [facility] [place] [facility] [address] [id number] [place] [address]- 0995 Mar, [facility] [place] [facility] [address] [id number] [place] [address]- 5706 Mar, [facility] [place] [facility] [address] [id number] [place] [address]- 7034 Mar, [facility] [place] [facility] [address] [id number], [place] [address] 47[address] Mar, [facility] [place] [facility] [address] [id number] [place] [address]- 0766 Mar, [facility] [place] [facility] [address] [id number] [place] [address]- 1606 Mar, [facility] [place] [facility] [address] [id number] [place] [address]- 7916 Feb, [facility] [place] [facility] [address] [id number] [place] [address]- 1641 Feb, [facility] [place] [facility] [address] [id number] [place] [address]- 2553 Feb, [facility] [place] [facility] [address] [id number] [place] [address]- 6779 Feb, [facility] [place] [facility] [address] [id number] [place] [address]- 4899 Feb, [facility] [place] [facility] [address] [id number] [place] [address]- 2673 Feb, [facility] [place] [facility] [address] [id number] [place] [address]- 6626 Feb, [facility] [place] [facility] [address] [id number] [place] [address]- 4767 Feb, [facility] [place] [facility] [address] [id number] [place] [address]- 3034 Feb, [facility] [place] [facility] [address] [id number] [place] [address]- 8640 16 Feb, 2012 [facility] [place] [facility] [address] [id number] [place] [address]- 9202 Feb, [facility] [place] [facility] [address] [id number] [place] [address]- 5923 Feb, [facility] [place] [facility] [address] [id number] [place] [address]- 2594 Feb, [facility] [place] [facility] [address] [id number] [place] [address]- 6453 Feb, [facility] [facility] [address] [id number] [place] [address] Feb, [facility] [place] [facility] [address] [id number] [place] [address] Feb, [facility] [place] [facility] [address] [id number] [place] [address] 16[address] Jan, [facility] [place] [facility] [address] [id number] [place] [address] Jan, 2011 [facility] [place] [facility] [address] [id number] [place] [address] Jan, [facility] [place] [facility] [address] [id number] [place] [address] 4179 Jan, [facility] [place] [facility] [address] [id number] [place] [address] 4569 Jan, [facility] [place] [facility] [address] [id number] [place] [address]- 5790 Jan, [facility] [place] [facility] [address] [id number] [place] [address] 3016 Jan, [facility] [place] [facility] [address] [id number] [place] [address]- 4254 Jan, [facility] [place] [facility] [address] [id number], [place] [address] Jan, [facility] [place] [facility] [address] [id number] [place] [address]- 8883 Jan, [facility] [place] [facility] [address] [id number], [place] [address] 8[address] Jan, [facility] [facility] [address] [id number], [place] [address] 3570 Jan, [facility] [address] [id number], [place] [address] 8414 Jan, [facility] [address] [id number], [place] [address]- 30[address] Jan, [facility] [address] [id number], [place] [address]- 239[address] Jan, [facility] [address] [id number], [place] [address]- 1584 Jan, [facility] [address] [id number], [place] [address]- [address]607 04 Jan, 2012 [facility] [place] [facility] [address] [id number] [place] [address] 2546 21 Dec, 2011 [facility] [facility] [address] [id number] [place] [address] 2546 20 Dec, 2011 [facility] [place] [facility] [address] [id number] [place] [address] 2546 18 Dec, 2011 [facility] [place] [facility] [address] [id number] [place] [address] 2546 18 Dec, 2011 [facility] [facility] [address] [id number] [place] [address] 2546 10 Dec, 2011 [facility] [address] [id number] [place] [address]- 2286 10 Dec, 2011 [facility] [facility] [address] [id number] [place] [address]- 8986 10 Dec, 2011 [facility] [address] [id number] [place] [address]- 8699 07 Dec, 2011 [facility] [facility] [address] [id number] [place] [address]- 5240 30 Nov, 2011 [facility] [address] [id number] [place] [address]- 2175 Nov, [facility] [facility] [address] [id number] [place] [address] 2540 Nov, [facility] [address] [id number] [place] [address]- 2546 Nov, [facility] [address] [id number] [place] [address] 2546 Nov, [facility] [address] [id number] [place] [address]- 2545 16 Nov, 2011 [facility] [address] [id number] [place] [address]- 8030 30 Oct, 2011 [facility] [address] [id number] [place] [address]- 8377 30 Oct, 2011 [facility] [address] [id number] [place] [address]- 8790 Oct, [facility] [place] [address] [id number] [place] [address]- 8106 Oct, [facility] [address] [id number] [place] [address]- 0308 Oct, [facility] [address] [id number] [place] [address]- 3234 Oct, [facility] [address] [id number] [place] [address]- 6202 Oct, [facility] [address] [id number] [place] [address]- 4266 Sep, [facility] [address] [id number] [place] [address]- 0736 Sep, [facility] [address] [id number] [place] [address]- 0064 Sep, [facility] [address] [id number] [place] [address]- 3814 Sep, [facility] [address] [id number] [place] [address]- 9907 Sep, [facility] [address] [id number] [place] [address]- 1237 15 Sep, 2011 [facility] [address] [id number] [place] [address]- 2547 14 Sep, 2011 [facility] [address] [id number] [place] [address]- 7923 11 Sep, 2011 [facility] [address] [id number] [place] [address]- 6506 05 Sep, 2011 [facility] [address] [id number] [place] [address]- 5398 Sep, [facility] [address] [id number] [place] [address]- 4856 August, [facility] [address] [id number] [place] [address]- 0646 August, [facility] [address] [id number] [place] [address]- 9055 August, [facility] [address] [id number] [place] [address]- 6432 August, [facility] [address] [id number] [place] [address]- 9851 August, [facility] [address] [id number] [place] [address]- 4659 Jul, [facility] [address] [id number] [place] [address]- 9569 Jul, [facility] [address] [id number] [place] [address]- 5668 Jul, [facility] [address] [id number] [place] [address]- 9259 Jul, [facility] [address] [id number] [place] [address]- 6911 Jul, [facility] [address] [id number] [place] [address]- 4453 Jul, [facility] [address] [id number] [place] [address]- 9986 Jul, [facility] [address] [id number] [place] [address]- 2149 Jun, [facility] [address] [id number] [place] [address]- 8755 Jun, [facility] [address] [id number] [place] [address]- 2419 Jun, [facility] [address] [id number] [place] [address]- 1694 Jun, [facility] [address] [id number] [place] [address]- 7259 Jun, [facility] [address] [id number] [place] [address]- 2766 May, [facility] [address] [id number] [place] [address]- 3476 May, [facility] [address] [id number] [place] [address]- 3720 May, [facility] [address] [id number] [place] [address], [place] [address]- 9832 May, [facility] [address] [facility]] [id number] [place] [address]- 7878 May, [facility] [id number] [place] [address], [place] [address]- 8283 May, [facility] [address] [id number] [place] [address]- 0029 Apr, [facility] [id number] [place] [address]- 4461 Mar, [facility] [address] [id number] [place] [address]- 3392 Feb, [facility] [address] [facility]] [id number] [place] [address] 2540 Feb, [facility] [address] [id number] [place] [address] 2549 Feb, [facility] [address] [facility]] [id number] [place] [address]- 4893 Feb, [facility] [address] [facility]] [id number] [place] [address]- 7736 Jan, [facility] [address] [facility]] [id number] [place] [address]- 6058 Jan, [facility] [address] [id number] [place] [address]- 5556 26 Jan, 2011 [facility] [address] [id number] [place] [address]- 4730 24 Jan, 2011 [facility] [address] [id number] [place] [address]- 1238 14 Jan, 2011 [facility] [address] [id number] [place] [address]- 0843 19 Dec, 2010 [facility] [address] [id number] [place] [address]- 8574 Oct, [facility] [address] [id number] [place] [address]- 6042 August, [facility] [address] [id number] [place] [address]- 8592 29 Mar, 2010 [facility] [address] [id number] [place] [address]- 5897 27 Mar, 2010 [facility] [address] [id number] [place] [address]- 8149 16 Mar, 2010 [facility] [address] [id number], [place] [address]- 3540 15 Mar, 2010 [facility] [address] [id number], [place] [address]- 4327 15 Mar, 2010 [facility] [address] [id number], [place] [address]- 9589 08 Mar, 2010 [facility] [address] [id number] [place] [address]- 7163 03 Mar, 2010 [facility] [address] [id number], [place] [address]- 4942 24 Feb, 2010 [facility] [address] [id number], [place] [address]- 9391 24 Feb, 2010 [facility] [address] [id number], [place] [address]- 9042 15 Feb, 2010 [facility] [address] [id number], [place] [address]- 6377 19 Jan, 2010 [facility] [address] [facility]] [id number], [place] [address]- 3183 18 Jan, 2010 [facility] [address] [facility]NOTE 3] [id number], [place] [address]- 3819 18 Jan, 2010 [facility] [address] [facility] 3] [id number], [place] [address]- 2706 Nov, [facility] [address] [facility] 3] [id number] [place] [address]- 5185 14 Sep, 2009 [facility] [address] [facility] 3] [id number], [place] [address]- 0850 August, [facility] [id number] [place] [address]- 4907 30 Mar, 2009 [facility] [address] [facility]NOTE 3] [id number], [place] [address]- 0556 Mar, [facility] [address] [id number], [place] [address]- 7348 17 Feb, 2009 [facility] [address]00565100[place], [place] [address]- 6849 10 Feb, 2009 [facility] [address] [facility] 3] [id number], [place] [address]- 1887 10 Feb, 2009 [facility] [address] [facility]NOTE 3] [id number], [place] [address]- 5606 10 Feb, 2009 [facility] [address] [facility] 3] [id number], [place] [address]- 8047 06 Feb, 2009 [facility] [address] [facility] 3] [id number], [place] [address]- 4967 27 Jan, 2009 [facility] [address] [facility]NOTE 3] [id number], [place] [address]- 0121 26 Jan, 2009 [facility] [address] [id number], [place] [address]- 8394 Jan, [facility] [address] [id number], [place] [address]- 2395 Jan, [facility] [address]00565100[place], [place] [address]- 3101 Nov, [facility] [id number], [place] [address]- 2737 Sep, [facility] [address]00565100[place], [place] [address]- 3461 August, [facility] [address]00565100[place], [place] [address]- 0092 Jul, [facility] [address] [id number], [place] [address]- 3078 May, IMMUNIZATIONS No Known Immunizations SOCIAL HISTORY Never Assessed REASON FOR VISIT CCM note PLAN OF CARE VITAL SIGNS MEDICATIONS Unknown [...] Excision cancerous lesion left elbow ([place]) 09/11/17 Surgical History elbow surgery 08/2017 Surgical History Botox on your bladder 12/16/2017 Surgical History Cut nerves on left wrist, 12/2017 Surgical History Heart Cath 12/23/2017 Surgical History Botox on bladder 12/16/2017 Hospitalization History surgeries Hospitalization History Atrial Flutter/Chest [...] attempt 20's Hospitalization History Knee Surgery 07/16/17 Hospitalization History [facility]- left hand/wrist swelling 10/09/2017
--- OUTSIDE RECORDS SUMMARY | 2018-01-01 11:20 | XMS REPORT ---
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 Active 14988518 Problem Colon polyp K63.5 Active 24889951 Problem Screening breast examination Z12.39 Active 810666478 Problem Bilateral low back pain without sciatica M54.5 Active 650659047 Problem Postmenopausal Z78.0 Active 57316299 Problem Essential tremor G25.0 Active 00058921 Problem Osteopenia M85.80 Active 620298518 Problem Hyperlipidemia E78.5 Active 70555390 Problem Cigarette nicotine dependence without complication F17.210 Active 98475245 Problem Vascular dementia without behavioral disturbance F01.50 Active [id number] Problem Arthritis M19.90 Active 7088553 Problem Chronic atrial fibrillation I48.2 Active 861195924 Problem Dementia without behavioral disturbance, unspecified dementia type F03.90 Active 65268215 Problem Other chronic pancreatitis K86.1 Active 694356811 Problem Xeroderma Q80.9 Active 14862667 Problem Chronic obstructive pulmonary disease with acute lower respiratory infection J44.0 Active 338979139 Problem Type 2 diabetes mellitus with diabetic neuropathy, without long-term current use of insulin E11.40 Active 75195219 Problem Atherosclerosis of tribe artery of both lower extremities with intermittent claudication I70.213 Active 596305379085417 Problem Hammertoe of right foot M20.41 Active 101126908 Problem Hammertoe of left foot M20.42 Active 297183803 Problem Migraine without aura and with status migrainosus, not intractable G43.001 Active 436363069 Problem Migraine without aura and without status migrainosus, not intractable G43.009 Active 774307909 Problem Major depressive disorder, recurrent episode, moderate F33.1 Active 861583129 Problem Unspecified psychosis F29 Active 65585537 Problem Cervicalgia M54.2 Active 5471277607894 Problem Diabetic polyneuropathy associated with type 2 diabetes mellitus E11.42 Active 54389743 Problem COPD (chronic obstructive pulmonary disease) J44.9 Active 08522633 Problem 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 Active 4867109482003 Problem Gastroparesis K31.84 Active 048893521 Problem Stress incontinence of urine N39.3 Active 16928055 Problem Osteoporosis M81.0 Active 63714244 Problem Controlled type 2 diabetes mellitus without complication, without long -term current use of insulin E11.9 Active 716026816 Problem Barretts esophagus K22.70 Active 683997689 Problem Chronic fatigue R53.82 Active 01280294 Problem History of common bile duct surgery Z98.89 Active 696499210 Problem Bipolar affective disorder, currently depressed, moderate F31.32 Active 496533981 Problem Generalized anxiety disorder F41.1 Active 094304845 Problem Gastroesophageal reflux disease, esophagitis presence not specified K21.9 Active 865926729 Problem Coronary artery disease involving tribe coronary artery of tribe 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 I25.118 Active 5848750081219 Problem Postconcussion syndrome F07.81 Active 58155682 Problem Chronic pain syndrome G89.4 Active 103021315 Problem Type 2 diabetes mellitus with diabetic peripheral angiopathy without gangrene E11.51 Active 838576006 Problem Paroxysmal atrial fibrillation I48.0 Active 568596098 Problem Unspecified atherosclerosis of tribe arteries of extremities, unspecified extremity I70.209 Active 839825479592803 Problem Acute exacerbation of chronic obstructive pulmonary disease (COPD) J44.1 Active 475135630 Problem Crohn''s disease without complication, unspecified gastrointestinal tract location K50.90 Active 56280954 ALLERGIES Substance Reaction Event Type Date Status Penicillin V Potassium rash Drug Allergy Nov, Active Neosporin rash Drug Allergy Nov, Active Ibuprofen rash Drug Allergy Nov, Active Glipizide hives, nausea Drug Allergy Nov, Active ENCOUNTERS Encounter Location Date Diagnosis [facility] [address] [facility] [id number] [place] [address] Feb, [facility] [address] [facility] [id number] [address] 19 Dec, 2017 [facility] [id number] [place] [address] 32829- 2675 18 Dec, 2017 [facility] [id number] [place] [address] 84794- 2097 14 Dec, 2017 [facility] [id number] [place] [address] 65491- 8699 14 Dec, 2017 [facility] [address] 47211- 0643 13 Dec, 2017 [facility] [id number] [place] [address] 01456- 0811 Dec, Type 2 diabetes mellitus with diabetic peripheral angiopathy without gangrene E11.51 ; Contusion of face, initial encounter S00.83XA and Bronchitis J40 [facility] [id number] [place] [address] 80052- 0585 10 Dec, 2017 [facility] [id number] [place] [address] 65850- 5330 06 Dec, 2017 [facility] [id number] [place] [address] 71127- 0335 Nov, [facility] [id number] [place] [address] 03395- 3567 Nov, Onychomycosis B35.1 ; Hammertoe of left foot M20.42 ; Hammertoe of right foot M20.41 and Type 2 diabetes mellitus with diabetic neuropathy, without long-term current use of insulin E11.40 [facility] [id number] [place] [address] 52043- 7322 Nov, [facility] [id number] [place] [address] 21272- 2082 Nov, Bronchitis J40 [facility] [id number] [place] [address] 47092- 8098 Oct, [facility] [id number] [place] [address] 81548- 0122 Oct, Bipolar affective disorder, currently depressed, moderate F31.32 ; Vascular dementia without behavioral disturbance F01.50 and Generalized anxiety disorder F41.1 [facility] [id number] [place] [address] 68240- 7158 Oct, [facility] [id number] [place] [address] 42543- 5199 Oct, [facility] [id number] [place] [address] 06573- 6731 Oct, Edema of both legs R60.0 [facility] [id number] [place] [address] 66876- 2588 Oct, [facility] [id number] [place] [address] 15716- 9586 Sep, [facility] [id number] [place] [address] 67104- 0911 Sep, [facility] [id number] [place] [address] 61871- 0904 Sep, [facility] [id number] [place] [address] 23971- 9798 Sep, Encounter for well woman exam with routine gynecological exam Z01.419 ; Screening for STDs (sexually transmitted diseases) Z11.3 ; Screening breast examination Z12.31 and Overweight (BMI 25.0-29.9) E66.3 [facility] [address] [address] Sep, [facility] [id number] [place] [address] 79514- 9344 Sep, [facility] [id number] [place] [address] 96051- 5130 Sep, [facility] [id number] [place] [address] 62382- 5561 August, [facility] [id number] [place] [address] 53524- 8099 August, [facility] [id number] [place] [address] 96733- 4612 August, Type 2 diabetes mellitus with diabetic neuropathy, without long-term current use of insulin E11.40 and Sprain of right ankle, unspecified ligament, initial encounter S93.401A [facility] [id number] [place] [address] 13347- 6700 August, [facility] [id number] [place] [address] 39110- 1888 August, [facility] [id number] [place] [address] 40755- 5618 August, [facility] [id number] [place] [address] 28697- 9101 August, Gastroesophageal reflux disease, esophagitis presence not specified K21.9 [facility] [id number] [place] [address] 88212- 2101 August, [facility] [id number] [place] [address] 31910- 2619 August, [facility] [id number] [place] [address] 64506- 6263 August, [facility] [id number] [place] [address] 53038- 6876 August, Type 2 diabetes mellitus with diabetic neuropathy, without long-term current use of insulin E11.40 and Elevated liver enzymes R74.8 [facility] [id number] [place] [address] 48000- 7543 Jul, [facility] [id number] [place] [address] 19675- 0986 Jul, Cough R05 [facility] [id number] [place] [address] 93336- 1776 Jul, [facility] [id number] [place] [address] 83182- 7650 Jul, [facility] [id number] [place] [address] 43081- 8843 Jul, Bipolar affective disorder, currently depressed, moderate F31.32 ; Vascular dementia without behavioral disturbance F01.50 and Generalized anxiety disorder F41.1 [facility] [id number] [place] [address] 60327- 2504 Jul, [facility] [address] 74175- 9514 Jul, Type 2 diabetes mellitus with diabetic neuropathy, without long-term current use of insulin E11.40 and Elevated liver enzymes R74.8 [place] [address] 13884- 5009 Jul, [place] [id number] [place] [address] 82252- 5942 Jul, [facility] [address] 85579- 4942 Jul, [facility] [id number] [place] [address] 72894- 8734 Jul, Post-menopausal Z78.0 [facility] [id number] [place] [address] 16661- 8307 Jul, Stress incontinence of urine N39.3 [facility] [id number] [place] [address] 92563- 3104 Jul, [facility] [id number] [place] [address] 09398- 6347 Jul, [facility] [id number] [place] [address] 64558- 1046 Jul, Stress incontinence of urine N39.3 and Cough R05 [facility] [id number] [place] [address] 69258- 9653 Jul, [facility] [id number] [place] [address] 48180- 6066 Jul, [facility] [id number] [place] [address] 92836- 3318 Jul, [facility] [id number] [place] [address] Jul, Gastroesophageal reflux disease, esophagitis presence not specified K21.9 [facility] [id number] [place] [address] 62760- 1857 Jun, Diabetic polyneuropathy associated with type 2 diabetes mellitus E11.42 [facility] [id number] [place] [address] 66786- 8401 Jun, Diabetic polyneuropathy associated with type 2 diabetes mellitus E11.42 ; Coronary artery disease involving tribe coronary artery of tribe 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 I25.118 and Paroxysmal atrial fibrillation I48.0 [facility] [id number] [place] [address] 28584- 3342 Jun, [facility] [id number] [place] [address] 11173- 5820 Jun, [facility] [id number] [place] [address] 13752- 7232 Jun, Gastroenteritis K52.9 [facility] [id number] [place] [address] 46000- 2181 Jun, Gastroenteritis K52.9 [facility] [id number] [place] [address] 23600- 0595 Jun, [facility] [id number] [place] [address] 93906- 4299 Jun, [facility] [id number] [place] [address] 29179- 7278 Jun, Sprain of right ankle, unspecified ligament, initial encounter S93.401A ; Type 2 diabetes mellitus with diabetic neuropathy, without long-term current use of insulin E11.40 ; Atherosclerosis of tribe artery of both lower extremities with intermittent claudication I70.213 ; 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 ; Chronic atrial fibrillation I48.2 and Crohn''s disease without complication, unspecified gastrointestinal tract location K50.90 [facility] [id number] [place] [address] 55733 -1254 17 Jun, 2017 Cough R05 and Chronic obstructive pulmonary disease with acute lower respiratory infection J44.0 [place] [id number] [place] [address] 35377- 9191 Jun, [place] [id number] [place] [address] 30619- 1594 Jun, Coughing R05 ; Unspecified atherosclerosis of tribe arteries of extremities, unspecified extremity I70.209 ; Type 2 diabetes mellitus with diabetic peripheral angiopathy without gangrene E11.51 ; Crohn''s disease without complication, unspecified gastrointestinal tract location K50.90 ; Other chronic pancreatitis K86.1 and Chronic atrial fibrillation I48.2 [facility] [id number] [place] [address] 05026 -8635 Jun, [place] [id number] [place] [address] 74342- 1077 Jun, Bipolar affective disorder, currently depressed, moderate F31.32 ; Vascular dementia without behavioral disturbance F01.50 and Generalized anxiety disorder F41.1 [place] [id number] [place] [address] 28363- 9457 May, Generalized anxiety disorder F41.1 [place] [id number] [place] [address] 94116- 8856 May, [place] [id number] [place] [address] 89289- 5012 May, [place] [id number] [place] [address] 25219- 3929 15 May, 2017 Coughing R05 [place] [id number] [place] [address] 51731- 5516 May, [facility] [id number] [place] [address] 47783- 3131 May, Bipolar affective disorder, currently depressed, moderate F31.32 ; Vascular dementia without behavioral disturbance F01.50 and Generalized anxiety disorder F41.1 [place] [id number] [place] [address] 21386- 8477 Apr, Generalized anxiety disorder F41.1 [place] [address] 65735- 9900 Apr, [place] [id number] [place] [address] 91546- 2370 Apr, Vascular dementia without behavioral disturbance F01.50 ; Generalized anxiety disorder F41.1 and Bipolar affective disorder, currently depressed, moderate F31.32 [place] [id number] [place] [address] 27084- 2032 Apr, Generalized anxiety disorder F41.1 [facility] [id number] [place] [address] 74895 -7664 Apr, Cough R05 and Acute exacerbation of chronic obstructive pulmonary disease (COPD) J44.1 [place] [id number] [place] [address] 60208- 6500 Apr, [facility] [id number] [place] [address] 23704 -4574 Mar, Cough R05 and Cigarette nicotine dependence without complication F17.210 [place] [id number] [place] [address] 41313- 2284 Mar, [place] [address] 35804- 6881 Feb, Generalized anxiety disorder F41.1 ; Major depressive disorder, recurrent episode, moderate F33.1 ; Vascular dementia without behavioral disturbance F01.50 and Unspecified psychosis F29 [place] [id number] [place] [address] 07585- 1931 Feb, [place] [id number] [place] [address] 45439- 9811 Feb, [place] [id number] [place] [address] 09462- 7470 Feb, Generalized anxiety disorder F41.1 [place] [id number] [place] [address] 82618- 5653 Feb, Generalized anxiety disorder F41.1 [place] [address] [place] [address] 75851- 0225 Feb, Dizziness R42 ; Chronic fatigue R53.82 ; Postconcussion syndrome F07.81 ; Fall, initial encounter W19.XXXA and Disorientation R41.0 [place] [id number] [place] [address] 54109- 5138 Feb, Postconcussion syndrome F07.81 ; Injury of head, initial encounter S09.90XA ; Fall, initial encounter W19.XXXA ; Disorientation R41.0 and Acute cystitis with hematuria N30.01 [place] [id number] [place] [address] 61375- 8876 Jan, Gastroesophageal reflux disease, esophagitis presence not specified K21.9 ; Post-menopausal Z78.0 and Migraine without aura and without status migrainosus, not intractable G43.009 [place] [id number] [place] [address] 75785- 7575 Jan, [place] [address] [place] [address] 66161- 2995 Jan, Generalized anxiety disorder F41.1 ; Major depressive disorder, recurrent episode, moderate F33.1 ; Vascular dementia without behavioral disturbance F01.50 and Unspecified psychosis F29 [place] [address] [place] [address] 34900- 6208 Jan, Pneumonia of left lower lobe due to infectious organism J18.1 [place] [id number] [place] [address] 45348- 3114 Jan, Migraine without aura and with status migrainosus, not intractable G43.001 [facility] [id number] [place] [address] 08186 -3296 Jan, Migraine without aura and without status migrainosus, not intractable G43.009 [facility] [id number] [place] [address] 94109- 5947 19 Dec, 2016 Hematoma T14.8 [facility] [address] 49691- 8872 12 Dec, 2016 [facility] [id number] [place] [address] 85493 -0965 Nov, Fatigue, unspecified type R53.83 [place] [id number] [place] [address] 39169- 7194 Nov, Scabies B86 and Coronary artery disease involving tribe coronary artery of tribe 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 I25.118 [place] [id number] [place] [address] 19066- 5985 Nov, [place] [id number] [place] [address] 92593- 6630 Nov, [place] [id number] [place] [address] 25301- 4931 Oct, [place] [id number] [place] [address] 77833- 4551 Oct, Generalized anxiety disorder F41.1 and Major depressive disorder, recurrent episode, moderate F33.1 [place] [id number] [place] [address] 38811- 3481 Oct, Cramp of both lower extremities R25.2 [place] [id number] [place] [address] 12204- 8617 Oct, Leg cramps R25.2 [place] [id number] [place] [address] 33840- 0604 Oct, Chronic pain syndrome G89.4 [facility] [address] [address]- 7582 17 Oct, 2016 [facility] [id number] [place] [address] 90541- 8046 14 Oct, 2016 [facility] [id number] [place] [address] 88786- 7336 11 Oct, 2016 Routine gynecological examination Z01.419 and Screening for breast cancer Z12.31 [place] [id number] [place] [address] 45986- 8613 28 Sep, 2016 Diarrhea R19.7 [place] [id number] [place] [address] 35520- 7977 26 Sep, 2016 Back pain M54.9 [place] [id number] [place] [address] 25753- 1618 Sep, [facility] [id number] [place] [address] 98997- 4789 Sep, [facility] [id number] [place] [address] 38554 -2250 August, Xeroderma Q80.9 [facility] [id number] [place] [address] 87507- 6811 August, Dementia without behavioral disturbance, unspecified dementia type F03.90 [facility] [id number] [place] [address] 96530- 3310 August, Chronic pain syndrome G89.4 [facility] [id number] [place] [address] 05672- 6436 August, [place] [id number] [place] [address] 39882- 4016 August, Hyperlipidemia E78.5 ; Other fatigue R53.83 and Other specified hypotension I95.89 [facility] [id number] [place] [address] 90892 -9944 August, Dysuria R30.0 ; Other fatigue R53.83 and Other specified hypotension I95.89 [facility] [address] 89389- 9144 August, [place] [address] 63963- 2251 Jul, Pain in left knee M25.562 and Gastroenteritis K52.9 [place] [address] 67325- 8386 Jul, [facility] [address] 61344- 9277 Jul, Diarrhea R19.7 [facility] [address] 02237 -2568 Jul, Spider bite, accidental or unintentional, initial encounter T63.301A [place] [address] 25198- 1332 Jul, Primary osteoarthritis of right knee M17.11 and Arthritis M19.90 [place] [address] 84566- 3943 Jul, Generalized anxiety disorder F41.1 and Major depressive disorder, recurrent episode, moderate F33.1 [place] [address] 60245- 6224 Jul, Type 2 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 and Temporal headache R51 [place] [address] 90069- 3638 Jul, Back pain M54.9 [place] [address] 10525- 8251 Jul, [place] [address] 91753- 6214 Jul, [facility] [address] 39014- 3646 Jun, Nausea R11.0 [facility] [id number] [place] [address] 71643 -1468 Jun, Acute suppurative otitis media of both ears without spontaneous rupture of tympanic membranes, recurrence not specified H66.003 and COPD exacerbation J44.1 [place] [address] 03808- 7976 Jun, Generalized anxiety disorder F41.1 [facility] [address] [address] 16 Jun, 2016 [facility] [address] [address] Jun, [facility] [address] [address] Jun, Shortness of breath R06.02 and COPD exacerbation J44.1 [place] [address] [address] Jun, Eczema, unspecified type L30.9 [place] [address] [address] Jun, [place] [address] [address] May, [place] [address] [address] May, Muscle cramping R25.2 [place] [address] [address] May, [place] [address] 15983- 9003 Apr, Diarrhea R19.7 [facility] [address] 58622- 6941 Apr, [place] [address] 27246- 1981 Apr, Chronic pain syndrome G89.4 [place] [address] [place] [id number] [place] [address] 51163- 7432 16 Apr, 2016 Cramp of both lower extremities R25.2 and Vascular dementia without behavioral disturbance F01.50 [place] [address] 20094- 9886 03 Apr, 2016 Type 2 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 and Cigarette nicotine dependence without complication F17.210 [place] [address] 27519- 2680 Mar, Generalized anxiety disorder F41.1 [place] [address] 94217- 0789 Feb, Generalized anxiety disorder F41.1 and Major depressive disorder, recurrent episode, moderate F33.1 [place] [address] 72289- 5656 Feb, [facility] [address] 23706 -4536 Feb, Dysuria R30.0 and Acute cystitis with hematuria N30.01 [place] [address] 95138- 9174 Jan, [place] [address] 44720- 3597 Jan, [place] [address] 60827- 0409 Jan, [place] [address] 52729- 1455 Jan, [facility] [address] 07050 -7798 Jan, Wasp sting, accidental or unintentional, initial encounter T63.461A [place] [address] 35397- 8337 06 Jan, 2016 Encounter for immunization Z23 [facility] [address] [place] [id number] [place] [address] 33756- 1873 Jan, [facility] [address] 65056- 7154 Jan, [facility] [address] [place] [id number] [place] [address] 69126- 2133 28 Dec, 2015 Generalized anxiety disorder F41.1 and Major depressive disorder, recurrent episode, moderate F33.1 [facility] [address] [place] [id number] [place] [address] 30970- 9859 21 Dec, 2015 Routine gynecological examination Z01.419 ; Postmenopausal Z78.0 ; Screening breast examination Z12.39 ; Osteopenia M85.80 and Breast cancer screening Z12.39 [place] [address] [place] [id number] [place] [address] 21070- 5076 20 Dec, 2015 [place] [address] [place] [id number] [place] [address] 05205- 0356 19 Dec, 2015 [facility] [address] [place] [id number] [place] [address] 84401- 7793 16 Dec, 2015 [facility] [address] [place] [id number] [place] [address] 23757- 1579 16 Dec, 2015 [facility] [address] [place] [id number] [place] [address] 51103- 4194 14 Dec, 2015 [place] [address] [place] [id number] [place] [address] 75366- 4262 06 Dec, 2015 [facility] [address] [place] [id number] [place] [address] 79552- 1411 Nov, [facility] [address] [place] [id number] [place] [address] 20364 -6857 Nov, Cough R05 ; Other viral agents as the cause of diseases classified elsewhere B97.89 and Acute upper respiratory infection, unspecified J06.9 [facility] [address] [place] [id number] [place] [address] 14970- 5104 Nov, [facility] [address] [address]- 6595 Nov, [facility] [address] [address]- 6376 Nov, [facility] [address] [address]- 5355 Nov, [facility] [address] [place] [id number] [place] [address] 79515- 1160 Nov, [facility] [address] [place] [address]- 4207 Oct, [facility] [address] [place] [id number] [place] [address] 21390- 7070 Oct, [facility] [id number] [place] [address] 29553- 3188 Oct, [facility] [id number] [place] [address] 20924- 8553 Oct, Chronic pain syndrome G89.4 [facility] [id number] [place] [address] 63841- 6424 Sep, Generalized anxiety disorder F41.1 and Major depressive disorder, recurrent episode, moderate F33.1 [facility] [address] [address]- 7425 Sep, [facility] [address] [address]- 5044 Sep, [facility] [address] [address]- 3060 14 Sep, 2015 Generalized anxiety disorder F41.1 [facility] [address] [address]- 6906 13 Sep, 2015 Cramp of both lower extremities R25.2 and Cervicalgia M54.2 [facility] [address] [address]- 1875 Sep, Generalized anxiety disorder F41.1 [facility] [address] [address]- 0257 Sep, [facility] [address] [place] [id number] [place] [address] 60302 -4663 August, Rash R21 ; Itching L29.9 and Allergic response, subsequent encounter T78.40XD [facility] [address] [place] [id number] [place] [address] 87742- 2458 August, Primary insomnia F51.01 [facility] [address] [place] [id number] [place] [address] 06749 -5474 August, Rash R21 ; Itching L29.9 and Allergic response, initial encounter T78.40XA [place] [address] [place] [id number] [place] [address] 45323- 3277 August, [place] [address] [place] [id number] [place] [address] 29732- 3336 August, Cramp of both lower extremities R25.2 [place] [address] [place] [id number] [place] [address] 24731- 6652 August, Back pain M54.9 [place] [address] [place] [id number] [place] [address] 97330- 5467 August, [place] [address] [place] [id number] [place] [address] 25691- 3961 August, [facility] [id number] [place] [address] 41300 -4211 August, Cramp of both lower extremities R25.2 [place] [address] [place] [id number] [place] [address] 01893- 9382 August, [facility] [address] [place] [id number] [place] [address] 90320- 5979 August, Syncope R55 ; Paroxysmal atrial fibrillation I48.0 ; Dementia without behavioral disturbance, unspecified dementia type F03.90 and Chronic pain syndrome G89.4 [facility] [address] [place] [id number] [place] [address] 27161- 2560 August, Type 2 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 and Syncope R55 [facility] [address] [place] [id number] [place] [address] 20186- 1246 Jul, [facility] [address] [place] [id number] [place] [address] 68591- 6786 Jul, [facility] [address] [place] [id number] [place] [address] 83489- 9355 Jul, [facility] [address] [place] [id number] [place] [address] 20563- 4440 Jul, [facility] [address] [place] [id number] [place] [address] 77752- 3095 Jul, [facility] [address] [place] [id number] [place] [address] 71881- 9548 Jul, UTI (urinary tract infection) N39.0 [facility] [address] [place] [id number] [place] [address] 13508- 6054 Jul, [facility] [address] [place] [id number] [place] [address] 79768- 1728 Jul, Major depressive disorder, recurrent episode, moderate F33.1 and Generalized anxiety disorder F41.1 [facility] [address] [place] [id number] [place] [address] 57765- 6695 Jul, Generalized anxiety disorder F41.1 [facility] [id number] [place] [address] 68781- 5938 Jul, Diarrhea R19.7 [facility] [address] [place] [id number] [place] [address] 32744- 3911 Jul, [facility] [address] [place] [id number] [place] [address] 32332- 3786 Jun, [facility] [address] [place] [id number] [place] [address] 92615- 2546 Jun, Eczema L30.9 [facility] [address] [address]- 3786 Jun, [facility] [id number] [place] [address] 48439- 0420 Jun, COPD (chronic obstructive pulmonary disease) J44.9 [facility] [id number] [place] [address] 07030- 4746 Jun, [facility] [id number] [place] [address] 47072 2540 Jun, Major depressive disorder, recurrent episode, moderate F33.1 and Generalized anxiety disorder F41.1 [facility] [address] [address]- 3786 May, [facility] [id number] [place] [address] 77726- 0518 May, UTI (urinary tract infection) N39.0 [facility] [address] [address]- 1306 May, [facility] [id number] [place] [address] 20273- 6138 May, [facility] [address] [address]- 9961 May, [facility] [address] [address] 2549 May, [facility] [address] [address]- 5460 Apr, Major depressive disorder, recurrent episode, moderate F33.1 and Generalized anxiety disorder F41.1 [facility] [address] [address]- 0568 Apr, COPD (chronic obstructive pulmonary disease) J44.9 [facility] [id number] [place] [address] 45367- 4772 Apr, [facility] [address] [address]- 3449 Apr, Atrial flutter I48.92 [facility] [address] [address]- 2739 Apr, [facility] [address] [place] [id number] [place] [address] 80299- 1395 Apr, [facility] [address] [place] [id number] [place] [address] 56749- 2471 Mar, [facility] [address] [place] [id number] [place] [address] 95652- 5940 Mar, [facility] [address] [place] [id number] [place] [address] 08259- 2675 Mar, [facility] [address] [place] [id number] [place] [address] 62709- 8549 Mar, Hyperlipidemia E78.5 ; Type 2 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 ; Major depressive disorder, recurrent episode, moderate F33.1 and Chronic pain syndrome G89.4 [facility] [address] [place] [id number] [place] [address] 43683- 0187 Mar, [facility] [address] [address]- 6952 Mar, [facility] [address] [place] [id number] [place] [address] 14012- 5930 Mar, [facility] [id number] [place] [address] 02277- 7633 Mar, [facility] [address] [place] [id number] [place] [address] 90845- 7448 30 Feb, 2015 COPD (chronic obstructive pulmonary disease) J44.9 and Back pain M54.9 [facility] [address] [address]- 4750 Feb, [facility] [address] [address]- 0249 Feb, [facility] [address] [place] [id number] [place] [address] 92963- 0031 Feb, [facility] [address] [place] [id number] [place] [address] 62288- 2974 Feb, [facility] [address] [place] [id number] [place] [address] 98864- 7825 Feb, [facility] [address] [place] [id number] [place] [address] 17371- 9887 Feb, [facility] [address] [place] [id number] [place] [address] 34656- 0249 Feb, [facility] [address] [place] [id number] [place] [address] 10868- 3588 Feb, [facility] [address] [place] [id number] [place] [address] 42717- 2686 Feb, Diabetes E11.9 ; Back pain M54.9 and COPD (chronic obstructive pulmonary disease) J44.9 [facility] [address] [place] [id number] [place] [address] 19833- 6141 Jan, [facility] [address] [place] [id number] [place] [address] 06013- 5125 Jan, Major depression, recurrent F33.9 and Generalized anxiety disorder F41.1 [facility] [id number] [place] [address] 21547- 1044 Jan, Chronic pain G89.29 [facility] [address] [place] [id number] [place] [address] 73541- 7504 Jan, [facility] [address] [place] [id number] [place] [address] 78114- 2473 Jan, [facility] [id number] [place] [address] 95636- 0559 Jan, [facility] [address] [place] [id number] [place] [address] 29042- 2585 Jan, [facility] [address] [place] [id number] [place] [address] 45492- 9623 Jan, Nicotine dependence F17.200 [facility] [address] [place] [id number] [place] [address] 68202- 9977 Jan, Nicotine dependence F17.200 and Back pain M54.9 [facility] [address] 01994- 1657 Jan, [facility] [address] [place] [id number] [place] [address] 77975- 6875 28 Dec, 2014 [facility] [address] 42085- 5807 25 Dec, 2014 Anxiety, generalized 300.02 and Major depression, recurrent 296.30 [facility] [address] 20766- 9612 24 Dec, 2014 [facility] [address] [place] [id number] [place] [address] 83982- 0567 21 Dec, 2014 [facility] [address] 38098- 8827 17 Dec, 2014 [facility] [address] [place] [id number] [place] [address] 61752- 3146 15 Dec, 2014 [facility] [address] [place] [id number] [place] [address] 68313- 9788 14 Dec, 2014 [facility] [address] [place] [id number] [place] [address] 08153- 2545 11 Dec, 2014 [facility] [address] [place] [id number] [place] [address] 91741- 1657 10 Dec, 2014 [facility] [address] [place] [id number] [place] [address] 71258- 3143 08 Dec, 2014 Skin tear 879.8 [facility] [address] 10815- 9912 Dec, Routine gynecological examination V72.31 ; Breast cancer screening V76.10 and Family history of breast cancer in first degree relative V16.3 [facility] [address] [place] [id number] [place] [address] 78265- 5647 Dec, [facility] [address] [place] [id number] [place] [address] 27898- 9695 Dec, [facility] [address] [place] [id number] [place] [address] 70997- 7361 Nov, [facility] [address] [place] [id number] [place] [address] 03145- 1966 Nov, [facility] [address] [place] [id number] [place] [address] 85287- 5765 Nov, Poor balance 781.99 and Vascular dementia, uncomplicated 290.40 [facility] [address] [place] [id number] [place] [address] 09732- 4802 Nov, [facility] [address] [place] [id number] [place] [address] 97348- 0545 Nov, Major depression, recurrent 296.30 and Anxiety, generalized 300.02 [facility] [address] [place] [id number] [place] [address] 66750- 5112 Nov, [facility] [address] [place] [id number] [place] [address] 95171- 3342 Nov, [facility] [address] [place] [id number] [place] [address] 89553- 4928 Nov, [facility] [address] [place] [id number] [place] [address] 86595- 2027 Nov, [facility] [address] [place] [id number] [place] [address] 06384- 7334 Nov, Vascular dementia, uncomplicated 290.40 and Lumbago 724.2 [facility] [address] [place] [id number] [place] [address] 03123- 5286 Nov, [facility] [address] [address]- 3361 Nov, [facility] [address] [address]- 6600 Nov, [facility] [address] [place] [id number] [address]- 7867 Oct, [facility] [address] [id number] [place] [address] 56284- 6799 Oct, [facility] [address] [id number] [place] [address] 29390- 6093 Oct, [facility] [address] [place] [id number] [place] [address] 71149- 2664 Oct, COPD (chronic obstructive pulmonary disease) 496 and Hyperlipidemia 272.4 [facility] [address] [place] [id number] [place] [address] 16203- 8090 Oct, Major depression, recurrent 296.30 and Anxiety, generalized 300.02 [facility] [address] [address]- 0228 Oct, [facility] [address] [place] [id number] [place] [address] 36765- 2871 Oct, [facility] [address] [address]- 0558 Oct, [facility] [address] [address]- 0217 Sep, Lumbago 724.2 and Anxiety state, unspecified 300.00 [facility] [address] [address]- 7319 Sep, [facility] [id number] [address]- 7662 Sep, [facility] [address] [address]- 9372 August, [facility] [id number] [place] [address] 00175- 8180 August, Major depression, recurrent 296.30 ; Anxiety, generalized 300.02 and No condition on [place] II V71.09 [facility] [address] [address]- 1513 August, [facility] [address] [address]- 2501 August, [facility] [id number] [place] [address] 23214- 5906 Jul, [facility] [id number] [place] [address] 26470- 9651 Jul, [facility] [id number] [place] [address] 74056- 6663 Jul, [facility] [id number] [address]- 4071 Jun, [facility] [address] [address]- 9513 Jun, [facility] [address] [address]- 2117 Jun, [facility] [address] [address]- 7327 Jun, [facility] [address] [address]- 0590 Jun, [facility] [address] [address]- 6860 Jun, [facility] [address] [address]- 6288 Jun, [facility] [address] [address]- 5373 17 Jun, 2014 [facility] [address] [address]- 2852 Jun, [facility] [address] [place] [id number] [place] [address]- 0179 13 Jun, 2014 [facility] [place] [facility] [address] [id number] [place] [address]- 9132 10 Jun, 2014 [facility] [place] [facility] [address] [id number] [place] [address]- 2476 10 Jun, 2014 [facility] [place] [facility] [address] [facility] [id number] [place] [address]- 8729 07 Jun, 2014 [facility] [place] [facility] [address] [id number] [place] [address]- 0796 07 Jun, 2014 [facility] [place] [facility] [address] [id number] [place] [address]- 4234 02 Jun, 2014 [facility] [place] [facility] [address] [facility] [id number] [place] [address] 02 Jun, 2014 [facility] [place] [facility] [address] [facility] [id number] [place] [address] 23 May, 2014 [facility] [place] [facility] [address] [facility] [id number] [place] [address] 23 May, 2014 [facility] [place] [facility] [address] [facility] [id number] [place] [address] 20 May, 2014 [facility] [place] [facility] [address] [facility] [id number] [place] [address] 20 May, 2014 [facility] [place] [facility] [address] [facility] [id number] [place] [address] 254 20 May, 2014 [facility] [place] [facility] [address] [facility] [id number] [place] [address] 2548 20 May, 2014 [facility] [place] [facility] [address] [facility] [id number] [place] [address] 19 May, 2014 [facility] [place] [facility] [address] [facility] [id number] [place] [address] 2546 12 May, 2014 [facility] [place] [facility] [address] [facility] [id number] [place] [address] May, [facility] [place] [facility] [address] [id number] [place] [address] May, [facility] [place] [facility] [address] [id number] [place] [address] May, [facility] [place] [facility] [address] [facility] [id number] [place] [address] May, [facility] [place] [facility] [address] [id number] [place] [address] May, [facility] [place] [facility] [address] [id number] [place] [address] May, [facility] [place] [facility] [address] [id number] [place] [address] Apr, [facility] [place] [facility] [address] [id number] [place] [address]- [address] Apr, [facility] [place] [facility] [address] [id number] [place] [address] Apr, [facility] [place] [facility] [address] [id number] [place] [address] Apr, [facility] [place] [facility] [address] [facility] [id number] [place] [address]- [address] Apr, [facility] [place] [facility] [address] [id number] [place] [address] Apr, [facility] [place] [facility] [address] [id number] [place] [address] Apr, [facility] [place] [facility] [address] [id number] [place] [address] Apr, [facility] [place] [facility] [address] [id number] [place] [address] Apr, [facility] [place] [facility] [address] [facility] [id number] [place] [address] Apr, [facility] [place] [facility] [address] [id number] [place] [address] Apr, [facility] [place] [facility] [address] [id number] [place] [address] Apr, [facility] [place] [facility] [address] [id number] [place] [address] Mar, [facility] [place] [facility] [address] [id number] [place] [address] Mar, [facility] [place] [facility] [address] [id number] [place] [address] Mar, [facility] [place] [facility] [address] [id number] [place] [address] Mar, [facility] [place] [facility] [address] [id number] [place] [address] Mar, [facility] [place] [facility] [address] [id number] [place] [address] 29 Mar, 2014 [facility] [place] [facility] [address] [id number] [place] [address] Mar, [facility] [place] [facility] [address] [id number] [place] [address] Mar, [facility] [place] [facility] [address] [id number] [place] [address] 15 Mar, 2014 [facility] [place] [facility] [address] [id number] [place] [address]- 2271 15 Mar, 2014 [facility] [place] [facility] [address] [id number] [place] [address]- 5692 15 Mar, 2014 [facility] [place] [facility] [address] [id number] [place] [address]- 5076 15 Mar, 2014 [facility] [place] [facility] [address] [id number] [place] [address]- 1336 15 Mar, 2014 [facility] [place] [facility] [address] [id number] [place] [address]- 6214 Mar, [facility] [place] [facility] [address] [id number] [place] [address]- 9121 Mar, [facility] [place] [facility] [address] [id number] [place] [address]- 7599 Mar, [facility] [place] [facility] [address] [id number] [place] [address]- 8621 Mar, [facility] [place] [facility] [address] [id number] [place] [address]- 3829 Mar, [facility] [place] [facility] [address] [id number] [place] [address]- 0846 Mar, [facility] [place] [facility] [address] [id number] [place] [address]- 6396 Mar, [facility] [place] [facility] [address] [id number] [place] [address]- 8764 Feb, [facility] [place] [facility] [address] [id number] [place] [address]- 0768 Feb, [facility] [place] [facility] [address] [id number] [place] [address]- 9883 Feb, [facility] [place] [facility] [address] [id number] [place] [address]- 2852 Feb, [facility] [place] [facility] [address] [id number] [place] [address]- 9378 Feb, [facility] [place] [facility] [address] [id number] [place] [address]- 1843 Feb, [facility] [place] [facility] [address] [id number] [place] [address]- 4050 Feb, [facility] [place] [facility] [address] [id number] [place] [address]- 3817 Feb, [facility] [place] [facility] [address] [id number] [place] [address]- 4177 Feb, [facility] [place] [facility] [address] [id number] [place] [address]- 5158 Feb, [facility] [place] [facility] [address] [id number] [place] [address]- 0499 10 Feb, 2014 [facility] [place] [facility] [address] [id number] [place] [address]- 5606 Feb, [facility] [place] [facility] [address] [id number] [place] [address]- 1294 Feb, [facility] [place] [facility] [address] [id number] [place] [address]- 2954 Feb, [facility] [place] [facility] [address] [id number] [place] [address]- 1773 Feb, [facility] [place] [facility] [address] [id number] [place] [address]- 8792 Feb, [facility] [place] [facility] [address] [id number] [place] [address]- 9156 Feb, [facility] [place] [facility] [address] [id number] [place] [address]- 5761 Jan, [facility] [place] [facility] [address] [id number] [place] [address]- 8973 Jan, [facility] [place] [facility] [address] [facility] [id number] [place] [address]- 0626 Jan, [facility] [place] [facility] [address] [id number] [place] [address]- 6102 Jan, [facility] [place] [facility] [address] [id number] [address]- 8808 Jan, [facility] [place] [facility] [address] [id number] [place] [address]- 8919 Jan, [facility] [place] [facility] [address] [id number] [place] [address]- 3002 Jan, [facility] [place] [facility] [address] [id number] [place] [address]- 0662 Jan, [facility] [place] [facility] [address] [id number] [place] [address]- 3383 Jan, [facility] [place] [facility] [address] [id number] [place] [address]- 5759 Jan, [facility] [place] [facility] [address] [id number] [place] [address] Jan, [facility] [place] [facility] [address] [id number] [place] [address]- 5259 Dec, [facility] [place] [facility] [address] [id number] [place] [address]- 0674 Dec, [facility] [place] [facility] [address] [id number] [place] [address]- 1705 Nov, [facility] [place] [facility] [address] [id number] [place] [address]- 8533 Nov, [facility] [place] [facility] [address] [id number] [place] [address]- 3998 Nov, [facility] [place] [facility] [address] [id number] [place] [address]- 8466 Nov, [facility] [place] [facility] [address] [id number] [place] [address]- 7132 Nov, [facility] [place] [facility] [address] [id number] [place] [address]- 6422 Nov, [facility] [place] [facility] [address] [id number] [place] [address]- 0844 Nov, [facility] [place] [facility] [address] [id number] [place] [address]- 2570 Oct, [facility] [place] [facility] [address] [id number] [place] [address]- 1248 Oct, [facility] [place] [facility] [address] [id number] [place] [address] Oct, [facility] [place] [facility] [address] [id number] [place] [address]- 4228 Oct, [facility] [place] [facility] [address] [id number] [place] [address]- 3113 Sep, [facility] [place] [facility] [address] [id number] [place] [address]- 6833 Sep, [facility] [place] [facility] [address] [id number] [place] [address]- 3911 Sep, [facility] [place] [facility] [address] [id number] [place] [address]- 8925 Sep, [facility] [place] [facility] [address] [id number] [place] [address]- 9672 Sep, [facility] [place] [facility] [address] [id number] [place] [address]- 1572 Sep, [facility] [place] [facility] [address] [id number] [place] [address]- 0105 Sep, [facility] [place] [facility] [address] [id number] [place] [address]- 7194 Sep, [facility] [place] [facility] [address] [id number] [place] [address]- 9797 Sep, [facility] [place] [facility] [address] [id number] [place] [address]- 2309 Sep, [facility] [place] [facility] [address] [id number] [place] [address]- 2211 Sep, [facility] [place] [facility] [address] [id number] [place] [address]- 3418 Sep, [facility] [place] [facility] [address] [id number] [place] [address]- 8632 Sep, [facility] [place] [facility] [address] [id number] [place] [address]- 2985 Sep, [facility] [place] [facility] [address] [id number] [place] [address]- 7155 August, [facility] [place] [facility] [address] [id number] [place] [address]- 7244 August, [facility] [address] [id number] [place] [address]- 0598 August, [facility] [address] [id number] [place] [address]- 0151 August, [facility] [address] [id number] [place] [address]- 1416 August, [facility] [address] [id number] [place] [address]- 6048 August, [facility] [address] [id number] [place] [address]- 1762 August, [facility] [address] [id number] [place] [address]- 9425 August, [facility] [address] [id number] [place] [address]- 6385 August, [facility] [address] [id number] [place] [address]- 7173 August, [facility] [address] [id number] [place] [address]- 6541 August, [facility] [address] [id number] [place] [address]- 5369 August, [facility] [address] [id number] [place] [address]- 2172 August, [facility] [address] [id number] [place] [address]- 2835 August, [facility] [address] [id number] [place] [address]- 5638 August, [facility] [address] [id number] [place] [address]- 1070 August, [facility] [address] [id number] [place] [address]- 8606 August, [facility] [address] [id number] [place] [address]- 5978 August, [facility] [place] [facility] [address] [id number] [place] [address]- 4272 August, [facility] [place] [facility] [address] [id number] [place] [address]- 9233 Jul, [facility] [place] [facility] [address] [id number] [place] [address]- 7989 Jul, [facility] [place] [facility] [address] [id number] [place] [address]- 6711 Jul, [facility] [place] [facility] [address] [id number] [place] [address]- 1966 Jul, [facility] [place] [facility] [address] [id number] [place] [address]- 2347 Jun, [facility] [place] [facility] [address] [id number] [place] [address]- 9381 Jun, [facility] [place] [facility] [address] [id number] [place] [address]- 5312 Jun, [facility] [place] [facility] [address] [id number] [place] [address]- 1615 24 Jun, 2013 [facility] [place] [facility] [address] [id number] [place] [address]- 9513 Jun, [facility] [place] [facility] [address] [id number] [place] [address]- 1024 17 Jun, 2013 [facility] [place] [facility] [address] [id number] [place] [address]- 9416 14 Jun, 2013 [facility] [place] [facility] [address] [id number] [place] [address]- 2712 14 Jun, 2013 [facility] [place] [facility] [address] [id number] [place] [address]- 8855 06 Jun, 2013 [facility] [place] [facility] [address] [id number] [place] [address]- 2693 Jun, [facility] [place] [facility] [address] [id number] [place] [address]- 1996 May, [facility] [place] [facility] [address] [id number] [place] [address]- 6356 May, [facility] [place] [facility] [address] [facility] [id number] [place] [address]- 6476 May, [facility] [place] [facility] [address] [id number] [place] [address]- 5722 May, [facility] [place] [facility] [address] [id number] [place] [address]- 7807 May, [facility] [place] [facility] [address] [facility] [id number] [place] [address]- 6309 May, [facility] [place] [facility] [address] [facility] [id number] [place] [address]- 9511 20 May, 2013 [facility] [place] [facility] [address] [facility] [id number] [place] [address]- 4707 May, [facility] [place] [facility] [address] [facility] [id number] [place] [address]- 7782 May, [facility] [place] [facility] [address] [facility] [id number] [place] [address]- 3670 18 May, 2013 [facility] [place] [facility] [address] [facility] [id number] [place] [address]- 2545 18 May, 2013 [facility] [place] [facility] [address] [facility] [id number] [place] [address]- 2541 17 May, 2013 [facility] [place] [facility] [address] [facility] [id number] [place] [address]- 9276 May, [facility] [place] [facility] [address] [facility] [id number] [place] [address]- 2546 11 May, 2013 [facility] [place] [facility] [address] [facility] [id number] [place] [address]- 6241 May, [facility] [place] [facility] [address] [id number] [place] [address]- 2060 May, [facility] [place] [facility] [address] [id number] [place] [address]- 2322 May, [facility] [place] [facility] [address] [facility] [id number] [place] [address]- 7148 Apr, [facility] [place] [facility] [address] [id number] [place] [address]- 3203 Apr, [facility] [place] [facility] [address] [id number] [place] [address]- 8305 Apr, [facility] [place] [facility] [address] [facility] [id number] [place] [address]- 4305 Apr, [facility] [place] [facility] [address] [facility] [id number] [place] [address]- 0261 Apr, [facility] [place] [facility] [address] [id number] [place] [address]- 9058 Apr, [facility] [place] [facility] [address] [id number] [place] [address]- 0255 Apr, [facility] [place] [facility] [address] [facility] [id number] [place] [address]- 2143 Mar, [facility] [place] [facility] [address] [id number] [place] [address]- 5551 Mar, [facility] [place] [facility] [address] [id number] [place] [address]- 5954 Mar, [facility] [place] [facility] [address] [id number] [place] [address]- 6482 Mar, [facility] [place] [facility] [address] [facility] [id number] [place] [address]- 0718 Mar, [facility] [place] [facility] [address] [facility] [id number] [place] [address]- 2364 Mar, [facility] [place] [facility] [address] [id number] [place] [address]- 5715 Mar, [facility] [address] [id number] [place] [address]- 8640 Mar, [facility] [address] [id number] [place] [address]- 5143 Mar, [facility] [address] [id number] [place] 9711 Mar, [facility] [address] [id number] [place] [address]- 7154 Mar, [facility] [address] [id number] [place] [address]- 7469 Feb, [facility] [address] [id number] [place] [address]- 0521 Feb, [facility] [address] [id number] [place] [address]- 3840 Feb, [facility] [address] [id number] [place] [address]- 8808 20 Feb, 2013 [facility] [address] [id number] [place] [address]- 9523 Feb, [facility] [address] [facility] [id number] [place] [address]- 5968 19 Feb, 2013 [facility] [address] [id number] [place] [address]- 5371 15 Feb, 2013 [facility] [address] [id number] [place] [address]- 0582 14 Feb, 2013 [facility] [address] [id number] [place] [address]- 0555 14 Feb, 2013 [facility] [address] [id number] [place] [address]- 1249 13 Feb, 2013 [facility] [address] [id number] [place] [address]- 5280 Feb, [facility] [place] [facility] [address] [id number] [place] [address]- 7592 Feb, [facility] [place] [facility] [address] [id number] [place] [address]- 1610 Feb, [facility] [place] [facility] [address] [id number] [place] [address]- 0185 Feb, [facility] [place] [facility] [address] [id number] [place] [address]- 2946 Feb, [facility] [place] [facility] [address] [id number] [place] [address]- 2024 Feb, [facility] [place] [facility] [address] [id number] [place] [address]- 7817 Jan, [facility] [place] [facility] [address] [id number] [place] [address]- 1501 Jan, [facility] [place] [facility] [address] [id number] [address]- 9595 Jan, [facility] [place] [facility] [address] [id number] [place] [address]- 3561 Jan, [facility] [place] [facility] [address] [id number] [place] [address]- 3437 Jan, [facility] [place] [facility] [address] [id number] [place] [address]- 0838 Jan, [facility] [place] [facility] [address] [id number] [place] [address]- 5196 Jan, [facility] [place] [facility] [address] [id number] [place] [address]- 8738 Jan, [facility] [place] [facility] [address] [id number] [place] [address]- 5386 Jan, [facility] [place] [facility] [address] [id number] [place] [address]- 9802 27 Dec, 2012 [facility] [place] [facility] [address] [id number] [place] [address]- 8293 20 Dec, 2012 [facility] [place] [facility] [address] [id number] [place] [address]- 3146 19 Dec, 2012 [facility] [place] [facility] [address] [id number] [place] [address]- 2254 10 Dec, 2012 [facility] [place] [facility] [address] [id number] [place] [address]- 3944 04 Dec, 2012 [facility] [place] [facility] [address] [id number] [place] [address]- 0400 03 Dec, 2012 [facility] [place] [facility] [address] [id number] [place] [address]- 4973 Nov, [facility] [place] [facility] [address] [id number] [place] [address]- 1705 Nov, [facility] [place] [facility] [address] [id number] [place] [address]- 7192 Nov, [facility] [place] [facility] [address] [id number] [place] [address]- 4436 Nov, [facility] [place] [facility] [address] [id number] [place] [address]- 9462 Nov, [facility] [place] [facility] [address] [id number] [place] [address]- 6319 Nov, [facility] [place] [facility] [address] [id number] [place] [address]- 1002 Nov, [facility] [place] [facility] [address] [id number] [place] [address]- 6375 Nov, [facility] [place] [facility] [address] [id number] [place] [address]- 4528 14 Nov, 2012 [facility] [place] [facility] [address] [id number] [place] [address]- 9712 Nov, [facility] [place] [facility] [address] [id number] [place] [address]- 4927 17 Oct, 2012 [facility] [place] [facility] [address] [id number] [place] [address]- 0831 Oct, 2012 [facility] [place] [facility] [address] [id number] [place] [address]- 1732 Oct, [facility] [place] [facility] [address] [id number] [place] [address]- 7066 Oct, 2012 [facility] [place] [facility] [address] [id number] [place] [address]- 8869 Oct, 2012 [facility] [place] [facility] [address] [id number] [place] [address]- 2614 Oct, [facility] [place] [facility] [address] [id number] [place] [address] Oct, [facility] [place] [facility] [address] [id number] [place] [address] Oct, [facility] [place] [facility] [address] [id number] [place] [address] Sep, [facility] [place] [facility] [address] [id number] [place] [address] Sep, [facility] [place] [facility] [address] [id number] [place] [address] Sep, [facility] [place] [facility] [address] [id number] [place] [address] Sep, [facility] [place] [facility] [address] [id number] [place] [address] Sep, [facility] [place] [facility] [address] [id number] [place] [address] Sep, [facility] [place] [facility] [address] [id number] [place] [address] Sep, [facility] [place] [facility] [address] [id number] [place] [address] Sep, [facility] [place] [facility] [address] [id number] [place] [address] August, [facility] [address] [id number] [place] [address] August, [facility] [address] [id number] [place] [address] August, [facility] [address] [id number] [place] [address] August, [facility] [address] [id number] [place] [address] August, [facility] [address] [id number] [place] [address] Jul, [facility] [address] [id number] [place] [address] Jul, [facility] [address] [id number] [place] [address] Jul, [facility] [address] [id number] [place] [address] Jul, [facility] [address] [id number] [place] [address] Jul, [facility] [address] [id number] [place] [address] Jun, [facility] [address] [id number] [place] [address] 18 Jun, 2012 [facility] [place] [facility] [address] [id number] [place] [address] 15 Jun, 2012 [facility] [place] [facility] [address] [id number] [place] [address] 14 Jun, 2012 [facility] [place] [facility] [address] [id number] [place] [address] 12 Jun, 2012 [facility] [place] [facility] [address] [id number] [place] [address] 08 Jun, 2012 [facility] [place] [facility] [address] [id number] [place] [address] 08 Jun, 2012 [facility] [address] [id number] [place] [address] Jun, [facility] [address] [id number] [place] [address] Jun, [facility] [address] [id number] [place] [address] May, [facility] [address] [id number] [place] [address] May, [facility] [address] [id number] [place] [address] May, [facility] [address] [id number] [place] [address] May, [facility] [address] [id number] [place] [address] Apr, [facility] [address] [id number] [place] [address] Apr, [facility] [address] [id number] [place] [address] Apr, [facility] [address] [id number] [place] [address] Apr, [facility] [address] [id number] [place] [address] Apr, [facility] [address] [id number] [place] [address] Apr, [facility] [address] [id number] [place] [address]- [address] Apr, [facility] [address] [id number] [place] [address] Mar, [facility] [place] [address] [place] [id number] Mar, [facility] [place] [facility] [address] [id number] [place] [address] Mar, [facility] [place] [facility] [address] [id number] [place] [address] Mar, [facility] [place] [facility] [address] [id number] [place] [address]- [address] Mar, [facility] [place] [facility] [address] [id number] [place] [address]- [address] Mar, [facility] [place] [facility] [address] [id number] [place] [address]- [address] Mar, [facility] [place] [facility] [address] [id number] [place] [address]- 277[address] Mar, [facility] [place] [facility] [address] [id number] [place] [address]- 1766 Mar, [facility] [place] [facility] [address] [id number] [place] [address]- [address] Mar, [facility] [place] [facility] [address] [id number] [place] [address]- [address] Mar, [facility] [place] [facility] [address] [id number] [place] [address]- [address]076 Mar, [facility] [place] [facility] [address] [id number] [place] [address]- [address] Mar, [facility] [place] [facility] [address] [id number] [place] [address]- 3836 Mar, [facility] [place] [facility] [address] [id number] [place] [address]- 4036 Mar, [facility] [place] [facility] [address] [id number] [place] [address] 27[address] Mar, [facility] [place] [facility] [address] [id number] [place] [address]- 9036 Mar, [facility] [place] [facility] [address] [id number] [place] [address] Feb, [facility] [place] [facility] [address] [id number] [place] [address] Feb, [facility] [place] [facility] [address] [id number] [place] [address] 9[address] Feb, [facility] [place] [facility] [address] [id number] [place] [address]- 96[address] Feb, [facility] [place] [facility] [address] [id number] [place] [address]- 9317 Feb, [facility] [place] [facility] [address] [id number] [place] [address]- [address] Feb, [facility] [place] [facility] [address] [id number] [place] [address]- 3587 Feb, [facility] [place] [facility] [address] [id number] [place] [address]- 9031 Feb, [facility] [place] [facility] [address] [id number] [place] [address]- 1596 Feb, [facility] [place] [facility] [address] [address] [id number] [place] [address] Feb, [facility] [place] [facility] [address] [id number] [place] [address] Feb, [facility] [place] [facility] [address] [id number] [place] [address] Feb, [facility] [place] [facility] [address] [id number] [place] [address] 4[address] Feb, [facility] [place] [facility] [address] [id number] [place] [address] 47[address] Feb, [facility] [place] [facility] [address] [id number] [place] [address] 2411 Feb, [facility] [place] [facility] [address] [id number] [place] [address] Feb, [facility] [place] [facility] [address] [id number] [place] [address] 27[address] Jan, 2011 [facility] [place] [facility] [address] [id number] [place] [address] 49[address] Jan, 2011 [facility] [place] [facility] [address] [id number] [place] [address] 5827 Jan, [facility] [place] [facility] [address] [id number] [place] [address] 8751 Jan, 2011 [facility] [place] [facility] [address] [id number] [place] [address] 9119 Jan, 2011 [facility] [place] [facility] [address] [id number] [place] [address] 2805 Jan, [facility] [place] [facility] [address] [id number] [place] [address] 6188 Jan, [facility] [place] [facility] [address] [id number] [place] [address] 9200 Jan, [facility] [place] [facility] [address] [id number] [place] [address]- 1795 Jan, [facility] [place] [facility] [address] [id number] [place] [address]- 3305 Jan, [facility] [place] [facility] [address] [facility] [id number] [place] [address]- 7195 Jan, [facility] [place] [facility] [address] [id number] [place] [address]- 0985 Jan, [facility] [place] [facility] [address] [id number] [place] [address] 8944 Jan, [facility] [place] [facility] [address] [id number] [place] [address] 1128 Jan, [facility] [place] [facility] [address] [facility] [id number] [place] [address] 2696 Jan, [facility] [place] [facility] [address] [id number] [place] [address] 2964 Jan, [facility] [place] [facility] [address] [id number] [place] [address] 2779 Jan, [facility] [place] [facility] [address] [id number] [place] [address]- 8176 21 Dec, 2011 [facility] [place] [facility] [address] [id number] [place] [address]- 1688 20 Dec, 2011 [facility] [place] [facility] [address] [id number] [place] [address] 4366 18 Dec, 2011 [facility] [place] [facility] [address] [id number] [place] [address] 9001 18 Dec, 2011 [facility] [place] [facility] [address] [id number] [place] [address]- 6649 10 Dec, 2011 [facility] [place] [facility] [address] [id number] [place] [address]- 5752 10 Dec, 2011 [facility] [place] [facility] [address] [id number] [place] [address] 1953 10 Dec, 2011 [facility] [place] [facility] [address] [id number] [place] [address]- 3193 07 Dec, 2011 [facility] [place] [facility] [address] [id number] [place] [address]- 9636 30 Nov, 2011 [facility] [place] [facility] [address] [id number] [place] [address] 3299 Nov, [facility] [place] [facility] [address] [id number] [place] [address]- 9261 24 Nov, 2011 [facility] [place] [facility] [address] [id number] [place] [address] 4818 Nov, [facility] [place] [facility] [address] [id number] [place] [address]- 3537 Nov, [facility] [place] [facility] [address] [id number] [place] [address]- 0523 16 Nov, 2011 [facility] [place] [facility] [address] [id number] [place] [address]- 2546 Oct, [facility] [place] [facility] [address] [id number] [place] [address]- 6966 30 Oct, 2011 [facility] [place] [facility] [address] [id number] [place] [address] 7406 Oct, [facility] [place] [facility] [address] [id number] [place] [address] 2546 Oct, [facility] [place] [facility] [address] [id number] [place] [address] 2540 Oct, [facility] [place] [facility] [address] [id number] [place] [address]- 3544 Oct, [facility] [place] [facility] [address] [id number] [place] [address] 3204 Oct, [facility] [place] [facility] [address] [id number] [place] [address]- 9747 Sep, [facility] [place] [facility] [address] [id number] [place] [address]- 3069 Sep, [facility] [place] [facility] [address] [id number] [place] [address]- 5513 Sep, [facility] [place] [facility] [address] [id number] [place] [address]- 2137 Sep, [facility] [place] [facility] [address] [id number] [place] [address]- 9318 Sep, [facility] [place] [facility] [address] [id number] [place] [address]- 9039 15 Sep, 2011 [facility] [place] [facility] [address] [id number] [place] [address]- 9268 14 Sep, 2011 [facility] [place] [facility] [address] [id number] [place] [address]- 6653 11 Sep, 2011 [facility] [place] [facility] [address] [id number] [place] [address]- 2544 05 Sep, 2011 [facility] [place] [facility] [address] [id number] [place] [address] 1300 Sep, [facility] [address] [id number] [place] [address]- 2113 August, [facility] [address] [id number] [place] [address]- 4036 August, [facility] [address] [id number] [place] [address] 6159 August, [facility] [address] [id number] [place] [address]- 7601 August, [facility] [address] [id number] [place] [address]- 2626 August, [facility] [address] [id number] [place] [address] 8006 Jul, [facility] [address] [id number] [place] [address]- 0683 Jul, [facility] [address] [id number] [place] [address]- 9599 Jul, [facility] [address] [id number] [place] [address]- 9702 Jul, [facility] [address] [id number] [place] [address]- 0040 Jul, [facility] [address] [id number] [place] [address]- 4235 Jul, [facility] [address] [id number] [place] [address]- 8905 Jul, [facility] [address] [id number] [place] [address]- 5161 Jun, [facility] [address] [id number] [place] [address]- 2114 Jun, [facility] [address] [id number] [place] [address] Jun, [facility] [place] [facility] [address] [id number] [place] [address]- 3865 Jun, [facility] [place] [facility] [address] [id number] [place] [address]- 3174 Jun, [facility] [place] [facility] [address] [id number] [place] [address]- 8487 May, [facility] [place] [facility] [address] [id number] [place] [address]- 7412 May, [facility] [place] [facility] [address] [id number] [place] [address]- 3157 May, [facility] [place] [facility] [address] [id number] [place] [address]- 3090 May, [facility] [place] [facility] [address] [id number] [place] [address]- 9430 May, [facility] [place] [facility] [address] [id number] [place] [address]- 6297 May, [facility] [place] [facility] [address] [id number] [place] [address]- 6282 Apr, [facility] [place] [facility] [address] [id number] [place] [address]- 1169 Mar, [facility] [place] [facility] [address] [id number] [place] [address]- 8060 Feb, [facility] [place] [facility] [address] [id number] [place] [address]- 3220 Feb, [facility] [place] [facility] [address] [id number] [place] [address]- 6370 Feb, [facility] [place] [facility] [address] [id number] [place] [address]- 7237 Feb, [facility] [place] [facility] [address] [id number] [place] [address]- 7720 Jan, [facility] [place] [facility] [address] [id number] [place] [address]- 9181 27 Jan, 2011 [facility] [address] [id number] [place] [address]- 6206 26 Jan, 2011 [facility] [address] [id number] [place] [address]- 5586 24 Jan, 2011 [facility] [address] [id number] [place] [address]- 4866 14 Jan, 2011 [facility] [address] [id number] [place] [address] 2544 19 Dec, 2010 [facility] [id number] [place] [address], [place] [address]- 1588 Oct, [facility] [address] [id number] [place] [address]- 7725 August, [facility] [address] [id number] [place] [address]- 1207 29 Mar, 2010 [facility] [address] [id number] [place] [address]- 4136 27 Mar, 2010 [facility] [address] [id number] [place] [address] 2543 16 Mar, 2010 [facility] [address] [id number] [place] [address]- 2540 15 Mar, 2010 [facility] [address] [id number] [place] [address] 2546 15 Mar, 2010 [facility] [address] [id number] [place] [address] 254 08 Mar, 2010 [facility] [address] [id number] [place] [address] 2540 03 Mar, 2010 [facility] [address] [id number] [place] [address]- 2544 24 Feb, 2010 [facility] [address] [id number] [place] [address] 2540 24 Feb, 2010 [facility] [place] [facility] [address] [id number] [place] [address]- 2765 15 Feb, 2010 [facility] [place] [facility] [address] [id number] [place] [address]- 3706 19 Jan, 2010 [facility] [place] [facility] [address] [id number] [place] [address]- 6291 18 Jan, 2010 [facility] [place] [facility] [address] [id number] [place] [address]- 4455 18 Jan, 2010 [facility] [place] [facility] [address] [id number] [place] [address]- 3045 Nov, [facility] [place] [facility] [address] [id number] [place] [address]- 2607 14 Sep, 2009 [facility] [place] [facility] [address] [id number] [place] [address]- 0053 August, [facility] [place] [facility] [address] [id number] [place] [address]- 1548 30 Mar, 2009 [facility] [place] [facility] [address] [id number] [place] [address]- 5681 Mar, [facility] [place] [facility] [address] [facility] [id number] [place] [address]- 7460 17 Feb, 2009 [facility] [place] [facility] [address] [facility] [id number] [place] [address]- 5794 10 Feb, 2009 [facility] [place] [facility] [address] [id number] [place] [address]- 9692 10 Feb, 2009 [facility] [place] [facility] [address] [id number] [place] [address]- 0379 10 Feb, 2009 [facility] [place] [facility] [address] [id number] [place] [address]- 8143 06 Feb, 2009 [facility] [place] [facility] [address] [id number] [place] [address]- 5445 27 Jan, 2009 [facility] [place] [facility] [address] [id number] [place] [address]- 0410 Jan, [facility] [id number] [place] [address] Jan, [facility] [id number] [place] [address]- 2485 Jan, [facility] [id number] [place] [address]- 2516 Nov, [facility] [id number] [place] [address] 9092 Sep, [facility] [id number] [place] [address] August, [facility] [id number] [place] [address]- 5866 Jul, [facility] [id number] [place] [address] May, IMMUNIZATIONS Vaccine Route Administration Date Status SOLUMEDROL (UP TO 125 MG) IM Intramuscular Nov 17, 2017 Administered SOCIAL HISTORY Never Assessed REASON FOR VISIT COPD-SHAHLA pickens PLAN OF CARE VITAL SIGNS Height 64 in 2017-11-17 Weight 156.3 lbs 2017-11-17 Temperature 98.1 degrees Fahrenheit 2017-11-17 Heart Rate 86 bpm 2017-11-17 Respiratory Rate 20 2017-11-17 Oximetry on room air:92 % 2017-11-17 BMI 26.83 kg/m2 2017-11-17 Blood pressure systolic 100 mmHg 2017-11-17 Blood pressure diastolic 74 mmHg 2017-11-17 MEDICATIONS Medication Instructions Dosage Frequency Start Date End Date Duration Status Nitroglycerin 0.4 MG Active Glucometer 1 test blood sugar Jul, Active Oxybutynin Chloride ER 10 MG Orally Once a day 1 tablet 24h Active Alendronate Sodium 70 MG TAKE 1 TABLET EVERY WEEK Active Baclofen 20 TAKE ONE TABLET BY MOUTH THREE TIMES A DAY WITH FOOD OR MILK 30 Not-Taking Benefiber - Not-Taking Trazodone HCl 150 MG Orally Once a day 1 tablet at bedtime 24h Active Doxycycline Hyclate 100 mg Orally Twice a day 1 capsule 12h 13 Nov, 2017 Nov, 10 day(s) Active Ropinirole HCl 2 MG TAKE 1 TABLET ONE TIME DAILY AT BEDTIME 90 Active Neurontin 400 mg Orally Three times a day 1 capsule 8h August, 30 day(s) Active Lomotil 2.5-0.025 mg Orally Four times a day PRN loose stools TWO TABLETS Active Promethazine-Codeine 6.25-10 MG/5ML Orally every 6 hrs 5 ml as needed 6h Nov, Active Diltiazem HCl ER 240 MG Orally Once a day 1 capsule 24h Active Eliquis 5 MG Orally 2 times a day 12h Active BusPIRone HCl 5 MG Orally Three times a day 1 tablet 8h Not-Taking Baclofen 20 MG TAKE ONE TABLET BY MOUTH THREE TIMES DAILY WITH FOOD OR MILK 30 Active Vitamin D 50,000 Orally once a week 1 tablet Active Singulair 10 MG TAKE 1 TABLET ONE TIME DAILY 90 Active Guaifenesin 400 mg Orally every 4 hrs 1 tablet as needed 4h Nov, Active Zofran ODT 4 mg Orally every 4 hrs PRN 1 tablet on the tongue and allow to dissolve Jul, Active Oxygen 5 inhalation all the time Active Farxiga 5 Orally Once a day 1 tablet 24h 30 Active Remeron 45 MG Orally Once a day at bedtime 1 tablet Feb, Active Lasix 20 mg Orally Once a day 1 tablet 24h Oct, 30 day(s) Active Namenda 10 mg TAKE 1 TABLET EVERY DAY Active Omeprazole 40 mg Orally 2 times a day 1 capsule 12h Active Pantoprazole Sodium 40 MG Orally 2 times a day 1 tablet 12h Not- Taking Magnesium 400 MG Orally Once a day 1 tablet 24h Not-Taking Calcium Orally Once a day 1 tablet with D3 800 24h Active Clonazepam 1 MG Orally Once a day 1 tablet 24h Active Albuterol Sulfate 2.5 mg /3 mL (0.083 %) 1 Each by Inhalation route every 4 hours for cough and wheeze PRN for wheezing or cough Jun, Active Ranitidine HCl 150 MG Orally 2 times a day 1 tablet at bedtime 12h Active PredniSONE 20 mg Orally Once a day 2 tablets 24h Nov, Nov, 05 days Active Carafate 1 GM Orally 4 times a day PRN 1 tablet Not-Taking Ventolin HFA 108 (90 Base) MCG/ACT INHALE 2 PUFFS EVERY 4 HOURS NEEDED 16 Active Naproxen 250 MG Orally Twice a day PRN migraines 1 tablet with food or milk Not-Taking Lamictal 25 MG Orally every night 3 tablets Apr, Active Symbicort 160-4.5 MCG/ACT INHALE 2 PUFFS TWICE DAILY, IN THE MORNING AND IN THE EVENING 90 Active Abilify 10 MG TAKE 1 TABLET ONE TIME DAILY Active Welchol 625 MG Orally twice a day 2 tablets 12h Active Xifaxan 550 MG Orally Three times a day 1 tablet 8h Active Spiriva HandiHaler 18 MCG Inhalation Once a day 1 capsule 24h Active RESULTS Name Result Date Reference Range Xray : Chest 2 View (IN HOUSE) 2017-11-17 PROCEDURES Procedure Date Ordered Result Body Site [facility] VISIT ESTABLISHED PATIENT Nov 17, 2017 SOLUMEDROL (UP TO 125 MG) Nov 17, 2017 X-RAY EXAM CHEST 2 VIEWS Nov 17, 2017 THER/PROPH/DIAG INJ, SC/IM Nov 17, 2017 INSTRUCTIONS MEDICATIONS ADMINISTERED No Known Medications [...] History Cut nerves on left wrist, 12/2017 Hospitalization History surgeries Hospitalization History Atrial Flutter/Chest [...] Knee Surgery 07/16/17 Hospitalization History [facility] [place]- left hand/wrist swelling 10/09/2017
--- OUTSIDE RECORDS SUMMARY | 2018-01-01 11:21 | XMS REPORT ---
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210 Active 14690190 Problem Vascular dementia without behavioral disturbance F01.50 Active [id number] Problem Arthritis M19.90 Active 7933637 Problem Chronic atrial fibrillation I48.2 Active 564030521 Problem Dementia without behavioral disturbance, unspecified dementia type F03.90 Active 73986710 Problem Other chronic pancreatitis K86.1 Active 555568272 Problem Xeroderma Q80.9 Active 27707658 Problem Chronic obstructive pulmonary disease with acute lower respiratory infection J44.0 Active 376152414 Problem Type 2 diabetes mellitus with diabetic neuropathy, without long-term current use of insulin E11.40 Active 48316350 Problem Atherosclerosis of upper [place] artery of both lower extremities with intermittent claudication I70.213 Active 698898568384139 Problem Hammertoe of right foot M20.41 Active 342933131 Problem Hammertoe of left foot M20.42 Active 832800133 Problem Migraine without aura and with status migrainosus, not intractable G43.001 Active 460300271 Problem Migraine without aura and without status migrainosus, not intractable G43.009 Active 105514902 Problem Major depressive disorder, recurrent episode, moderate F33.1 Active 170783961 Problem Unspecified psychosis F29 Active 08826182 Problem Cervicalgia M54.2 Active 3355843893085 Problem Diabetic polyneuropathy associated with type 2 diabetes mellitus E11.42 Active 80700721 Problem COPD (chronic obstructive pulmonary disease) J44.9 Active 09570122 Problem 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 Active 9728449647020 Problem Gastroparesis K31.84 Active 639851762 Problem Stress incontinence of urine N39.3 Active 22534613 Problem Osteoporosis M81.0 Active 65771347 Problem Controlled type 2 diabetes mellitus without complication, without long -term current use of insulin E11.9 Active 773349613 Problem Barretts esophagus K22.70 Active 395652562 Problem Chronic fatigue R53.82 Active 31684105 Problem History of common bile duct surgery Z98.89 Active 424054186 Problem Bipolar affective disorder, currently depressed, moderate F31.32 Active 830555082 Problem Generalized anxiety disorder F41.1 Active 584746396 Problem Gastroesophageal reflux disease, esophagitis presence not specified K21.9 Active 597566637 Problem Coronary artery disease involving upper matt[place] coronary artery of upper matt[place] 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 I25.118 Active 3213343087145 Problem Postconcussion syndrome F07.81 Active 71043823 Problem Chronic pain syndrome G89.4 Active 352886170 Problem Type 2 diabetes mellitus with diabetic peripheral angiopathy without gangrene E11.51 Active 068532490 Problem Paroxysmal atrial fibrillation I48.0 Active 573026270 Problem Unspecified atherosclerosis of upper [place] arteries of extremities, unspecified extremity I70.209 Active 533552456332774 Problem Acute exacerbation of chronic obstructive pulmonary disease (COPD) J44.1 Active 848632228 Problem Crohn''s disease without complication, unspecified gastrointestinal tract location K50.90 Active 05894749 ALLERGIES No Information ENCOUNTERS Encounter Location Date Diagnosis [facility] [address] [facility] [id number] [address] Feb, [facility] [id number] [address] Dec, [facility] [address] [facility] [id number] [address] Dec, [facility] [id number] [place] [address] 86116- 5232 Nov, [facility] [id number] [place] [address] 13299- 0577 Nov, Onychomycosis B35.1 ; Hammertoe of left foot M20.42 ; Hammertoe of right foot M20.41 and Type 2 diabetes mellitus with diabetic neuropathy, without long-term current use of insulin E11.40 [facility] [id number] [place] [address] 02024- 1202 Nov, [facility] [id number] [place] [address] 50633- 0282 Nov, Bronchitis J40 [facility] [id number] [place] [address] 65822- 6936 Oct, [facility] [id number] [place] [address] 86596- 0416 Oct, Bipolar affective disorder, currently depressed, moderate F31.32 ; Vascular dementia without behavioral disturbance F01.50 and Generalized anxiety disorder F41.1 [facility] [id number] [place] [address] 31096- 6911 Oct, [facility] [id number] [place] [address] 84447- 7021 Oct, [facility] [id number] [place] [address] 44854- 6477 Oct, Edema of both legs R60.0 [facility] [id number] [place] [address] 17174- 5037 Oct, [facility] [id number] [place] [address] 77244- 8398 Sep, [facility] [id number] [place] [address] 83701- 4163 Sep, [facility] [id number] [place] [address] 82423- 9151 Sep, [place] [address] [address] [address] 6311 18 Sep, 2017 Encounter for well woman exam with routine gynecological exam Z01.419 ; Screening for STDs (sexually transmitted diseases) Z11.3 ; Screening breast examination Z12.31 and Overweight (BMI 25.0-29.9) E66.3 [facility] [address] [address] 5183 11 Sep, 2017 [facility] [id number] [place] [address] 02037- 4734 Sep, [facility] [id number] [place] [address] 91224- 6247 Sep, [facility] [id number] [place] [address] 00703- 6208 August, [facility] [id number] [place] [address] 34647- 4483 August, [facility] [id number] [place] [address] 13186- 7827 August, Type 2 diabetes mellitus with diabetic neuropathy, without long-term current use of insulin E11.40 and Sprain of right ankle, unspecified ligament, initial encounter S93.401A [facility] [address] [address] 6[address] August, [facility] [address], [place] [address] 7060 August, [facility] [address], [place] [address]- 9734 August, [facility] [id number] [place] [address] 79806- 5645 August, Gastroesophageal reflux disease, esophagitis presence not specified K21.9 [facility] [address] [address] 4879 August, [facility] [id number] [place] [address] 68267- 4881 August, [facility] [id number] [place] [address] 50917- 4507 August, [facility] [id number] [place] [address] [address]21 August, Type 2 diabetes mellitus with diabetic neuropathy, without long-term current use of insulin E11.40 and Elevated liver enzymes R74.8 [facility] [id number] [place] [address] 74530- 6762 Jul, [facility] [id number] [place] [address] 12268- 6938 Jul, Cough R05 [facility] [id number] [place] [address] 21759- 1374 Jul, [facility] [id number] [place] [address] 56927- 0149 Jul, [facility] [id number] [place] [address] 69720- 6525 Jul, Bipolar affective disorder, currently depressed, moderate F31.32 ; Vascular dementia without behavioral disturbance F01.50 and Generalized anxiety disorder F41.1 [facility] [id number] [place] [address] 70968- 5053 Jul, [facility] [address] [place] [address] 25723- 5665 Jul, Type 2 diabetes mellitus with diabetic neuropathy, without long-term current use of insulin E11.40 and Elevated liver enzymes R74.8 [facility] [address] [place] [address] 27082- 3216 Jul, [facility] [id number] [place] [address] 34869- 2648 Jul, [facility] [id number] [place] [address] 41125- 7816 Jul, [facility] [id number] [place] [address] 97793- 6903 Jul, Post-menopausal Z78.0 [facility] [address] 88224- 9756 Jul, Stress incontinence of urine N39.3 [facility] [id number] [place] [address] 00622- 4970 Jul, [facility] [address] 21341- 7631 Jul, [facility] [address] 54759- 8288 Jul, Stress incontinence of urine N39.3 and Cough R05 [facility] [address] 56166- 8102 Jul, [facility] [id number] [place] [address] 81186- 5176 Jul, [facility] [address] 75410- 6819 Jul, [facility] [address] 01982- 4912 Jul, Gastroesophageal reflux disease, esophagitis presence not specified K21.9 [facility] [id number] [place] [address] 64279- 9053 Jun, Diabetic polyneuropathy associated with type 2 diabetes mellitus E11.42 [facility] [id number] [place] [address] 68188- 3470 Jun, Diabetic polyneuropathy associated with type 2 diabetes mellitus E11.42 ; Coronary artery disease involving upper [place] coronary artery of upper matt[place] 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 I25.118 and Paroxysmal atrial fibrillation I48.0 [facility] [id number] [place] [address] 32895- 0169 Jun, [facility] [id number] [place] [address] 57821- 3961 Jun, [place] [address], [place] [address]- 6362 Jun, Gastroenteritis K52.9 [facility] [id number] [place] [address] 20835- 7511 Jun, Gastroenteritis K52.9 [facility] [id number] [place] [address] 05768- 6161 Jun, [facility] [id number] [place] [address] 80573- 3985 Jun, [facility] [id number] [place] [address] 79193- 2546 Jun, Sprain of right ankle, unspecified ligament, initial encounter S93.401A ; Type 2 diabetes mellitus with diabetic neuropathy, without long-term current use of insulin E11.40 ; Atherosclerosis of upper [place] artery of both lower extremities with intermittent claudication I70.213 ; 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 ; Chronic atrial fibrillation I48.2 and Crohn''s disease without complication, unspecified gastrointestinal tract location K50.90 [facility] [id number] [place] [address] 66297 -6710 17 Jun, 2017 Cough R05 and Chronic obstructive pulmonary disease with acute lower respiratory infection J44.0 [facility] [id number] [place] [address] 02562- 3324 16 Jun, 2017 [facility] [id number] [place] [address] 85310- 1020 15 Jun, 2017 Coughing R05 ; Unspecified atherosclerosis of upper [place] arteries of extremities, unspecified extremity I70.209 ; Type 2 diabetes mellitus with diabetic peripheral angiopathy without gangrene E11.51 ; Crohn''s disease without complication, unspecified gastrointestinal tract location K50.90 ; Other chronic pancreatitis K86.1 and Chronic atrial fibrillation I48.2 [facility] [id number] [place] [address] 88668 -0639 Jun, [facility] [id number] [place] [address] 80695- 3364 Jun, Bipolar affective disorder, currently depressed, moderate F31.32 ; Vascular dementia without behavioral disturbance F01.50 and Generalized anxiety disorder F41.1 [facility] [id number] [place] [address] 02194- 5358 May, Generalized anxiety disorder F41.1 [facility] [id number] [place] [address] 99626- 0307 May, [facility] [id number] [place] [address] 73850- 1255 May, [facility] [id number] [place] [address] 39084- 9823 May, Coughing R05 [facility] [id number] [place] [address] 22205- 5639 May, [facility] [id number] [place] [address] 35839- 7139 May, Bipolar affective disorder, currently depressed, moderate F31.32 ; Vascular dementia without behavioral disturbance F01.50 and Generalized anxiety disorder F41.1 [facility] [id number] [place] [address] 68245- 2676 Apr, Generalized anxiety disorder F41.1 [facility] [id number] [place] [address] 33582- 7781 Apr, [facility] [id number] [place] [address] 48907- 1047 Apr, Vascular dementia without behavioral disturbance F01.50 ; Generalized anxiety disorder F41.1 and Bipolar affective disorder, currently depressed, moderate F31.32 [facility] [id number] [place] [address] 39135- 6649 Apr, Generalized anxiety disorder F41.1 [facility] [address], [place] [address] -0303 Apr, Cough R05 and Acute exacerbation of chronic obstructive pulmonary disease (COPD) J44.1 [facility] [id number] [place] [address] 10614- 3859 Apr, [facility] [id number] [place] [address] 81137 -3167 Mar, Cough R05 and Cigarette nicotine dependence without complication F17.210 [facility] [address] 28786- 7911 Mar, [facility] [address] 54124- 7858 Feb, Generalized anxiety disorder F41.1 ; Major depressive disorder, recurrent episode, moderate F33.1 ; Vascular dementia without behavioral disturbance F01.50 and Unspecified psychosis F29 [facility] [address] 97885- 1197 Feb, [facility] [address] 26268- 7316 Feb, [facility] [id number] [place] [address] 23906- 8598 Feb, Generalized anxiety disorder F41.1 [facility] [id number] [place] [address] 41846- 6360 Feb, Generalized anxiety disorder F41.1 [facility] [id number] [place] [address] 37733- 3460 Feb, Dizziness R42 ; Chronic fatigue R53.82 ; Postconcussion syndrome F07.81 ; Fall, initial encounter W19.XXXA and Disorientation R41.0 [facility] [id number] [place] [address] 91406- 3819 03 Feb, 2017 Postconcussion syndrome F07.81 ; Injury of head, initial encounter S09.90XA ; Fall, initial encounter W19.XXXA ; Disorientation R41.0 and Acute cystitis with hematuria N30.01 [facility] [id number] [place] [address] 26884- 9126 Jan, Gastroesophageal reflux disease, esophagitis presence not specified K21.9 ; Post-menopausal Z78.0 and Migraine without aura and without status migrainosus, not intractable G43.009 [facility] [id number] [place] [address] 60395- 9962 Jan, [facility] [address] 90722- 9634 Jan, Generalized anxiety disorder F41.1 ; Major depressive disorder, recurrent episode, moderate F33.1 ; Vascular dementia without behavioral disturbance F01.50 and Unspecified psychosis F29 [place] [address] 42183- 4406 Jan, Pneumonia of left lower lobe due to infectious organism J18.1 [facility] [address] 53423- 2576 Jan, Migraine without aura and with status migrainosus, not intractable G43.001 [facility] [id number] [place] [address] 92846 -2492 Jan, Migraine without aura and without status migrainosus, not intractable G43.009 [facility] [id number] [place] [address] 37772- 4202 Dec, Hematoma T14.8 [facility] [id number] [place] [address] 27368- 0813 Dec, [facility] [id number] [place] [address] 63570 -6527 Nov, Fatigue, unspecified type R53.83 [place] [address] 59388- 3657 Nov, Scabies B86 and Coronary artery disease involving upper matt[place] coronary artery of upper matt[place] 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 I25.118 [facility] [id number] [place] [address] 57403- 9442 Nov, [facility] [address], [place] [address]- 3460 Nov, [facility] [address] [place] [address] 79935- 5014 Oct, [facility] [address], [place] [address]- 2303 Oct, Generalized anxiety disorder F41.1 and Major depressive disorder, recurrent episode, moderate F33.1 [facility] [id number] [place] [address] 30844- 8372 Oct, Cramp of both lower extremities R25.2 [facility] [id number] [place] [address] 38111- 9708 18 Oct, 2016 Leg cramps R25.2 [facility] [id number] [place] [address] 86652- 1115 17 Oct, 2016 Chronic pain syndrome G89.4 [facility] [id number] [place] [address] 86363- 7784 Oct, [facility] [id number] [place] [address] 92174- 8131 Oct, [facility] [address] [place] [address] 84110- 2272 Oct, Routine gynecological examination Z01.419 and Screening for breast cancer Z12.31 [facility] [address], [place] [address]- 8851 Sep, Diarrhea R19.7 [facility] [address], [place] [address]- 7100 Sep, Back pain M54.9 [facility] [address] [place] [address] 64311- 3211 Sep, [facility] [address], [place] [address]- 7912 Sep, [facility] [id number] [place] [address] 86596 -0034 August, Xeroderma Q80.9 [facility] [address] 48688- 0401 August, Dementia without behavioral disturbance, unspecified dementia type F03.90 [facility] [id number] [place] [address] 98960- 1869 August, Chronic pain syndrome G89.4 [place] [facility] [address] 56733- 4521 August, [place] [facility] [address] 82557- 8522 August, Hyperlipidemia E78.5 ; Other fatigue R53.83 and Other specified hypotension I95.89 [facility] [id number] [place] [address] 29447 -2216 August, Dysuria R30.0 ; Other fatigue R53.83 and Other specified hypotension I95.89 [facility] [id number] [place] [address] 37265- 7258 August, [facility] [address] 06745- 3422 Jul, Pain in left knee M25.562 and Gastroenteritis K52.9 [facility] [id number] [place] [address] 25851- 0931 Jul, [facility] [id number] [place] [address] 02481- 3648 Jul, Diarrhea R19.7 [facility] [id number] [place] [address] 51024 -2571 Jul, Spider bite, accidental or unintentional, initial encounter T63.301A [facility] [place] [id number] [place] [address] 92051- 3672 Jul, Primary osteoarthritis of right knee M17.11 and Arthritis M19.90 [facility] [id number] [place] [address] 91128- 0345 10 Jul, 2016 Generalized anxiety disorder F41.1 and Major depressive disorder, recurrent episode, moderate F33.1 [place] [address] 34763- 4714 07 Jul, 2016 Type 2 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 and Temporal headache R51 [facility] [address] 35041- 2528 06 Jul, 2016 Back pain M54.9 [place] [address] 22271- 1043 05 Jul, 2016 [place] [address] 43677- 2815 Jul, [place] [address] 87357- 4771 30 Jun, 2016 Nausea R11.0 [facility] [address] 27514 -0767 23 Jun, 2016 Acute suppurative otitis media of both ears without spontaneous rupture of tympanic membranes, recurrence not specified H66.003 and COPD exacerbation J44.1 [place] [address] 77860- 2493 21 Jun, 2016 Generalized anxiety disorder F41.1 [facility] [id number] [place] [address] 68010- 3041 16 Jun, 2016 [facility] [id number] [place] [address] 55936 -8472 Jun, [facility] [address] 14494 -9361 13 Jun, 2016 Shortness of breath R06.02 and COPD exacerbation J44.1 [place] [address] 98860- 1203 10 Jun, 2016 Eczema, unspecified type L30.9 [facility] [place] [address] [place] [address]- 9890 Jun, [facility] [id number] [place] [address] 79481- 7509 May, [facility] [id number] [place] [address] 34653- 2304 May, Muscle cramping R25.2 [place] [address] 34755- 5711 May, [place] [address] 46584- 2992 Apr, Diarrhea R19.7 [place] [place] [address] 52044- 0880 Apr, [place] [place] [address] [address] Apr, Chronic pain syndrome G89.4 [place] [address] [address]- [address] Apr, Cramp of both lower extremities R25.2 and Vascular dementia without behavioral disturbance F01.50 [place] [address] [address] Apr, Type 2 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 and Cigarette nicotine dependence without complication F17.210 [place] [address] [id number] [place] [address]- [address]4 Mar, Generalized anxiety disorder F41.1 [place] [address] [address]- [address] Feb, Generalized anxiety disorder F41.1 and Major depressive disorder, recurrent episode, moderate F33.1 [facility] [id number] [place] [address] 00170- 3961 Feb, [facility] [id number] [place] [address] 57385 -9176 05 Nov, 2016 Dysuria R30.0 and Acute cystitis with hematuria N30.01 [facility] [id number] [place] [address] 43933- 8895 31 Jan, 2016 [facility] [id number] [place] [address] 08299- 6202 Jan, [facility] [id number] [place] [address] 62225- 4684 Jan, [facility] [address] 37847- 7508 Jan, [facility] [id number] [place] [address] 66118 -6917 10 Jan, 2016 Wasp sting, accidental or unintentional, initial encounter T63.461A [facility] [address] 03579- 2494 06 Jan, 2016 Encounter for immunization Z23 [facility] [address] 27943- 6083 Jan, [facility] [id number] [place] [address] 79343- 2890 Jan, [facility] [id number] [place] [address] 71957- 0327 28 Dec, 2015 Generalized anxiety disorder F41.1 and Major depressive disorder, recurrent episode, moderate F33.1 [facility] [id number] [place] [address] 42264- 4081 Dec, Routine gynecological examination Z01.419 ; Postmenopausal Z78.0 ; Screening breast examination Z12.39 ; Osteopenia M85.80 and Breast cancer screening Z12.39 [facility] [id number] [place] [address] 56692- 9942 Dec, [facility] [id number] [place] [address] 47906- 9640 Dec, [facility] [id number] [place] [address] 08562- 1345 16 Dec, 2015 [facility] [address] [facility] [place] [id number] [place] [address]- 0541 16 Dec, 2015 [facility] [address] [facility] [place] [place] [id number] [place] [address]- 2621 14 Dec, 2015 [facility] [address] [facility] [place] [place] [id number] [place] [address]- 2977 06 Dec, 2015 [facility] [address] [facility] [place] [place] [id number] [place] [address]- 1743 30 Nov, 2015 [facility] [address] [facility] [place] [place] [id number] [place] [address] Nov, Cough R05 ; Other viral agents as the cause of diseases classified elsewhere B97.89 and Acute upper respiratory infection, unspecified J06.9 [facility] [address] [id number] [place] [address] 0793 Nov, [facility] [id number] [address] 2527 Nov, [facility] [address] [facility] [place] [id number] [place] [address]- 9166 Nov, [facility] [id number], [place] [address]- 0614 Nov, [facility] [address] [id number], [place] [address]- 3059 Nov, [facility] [id number], [place] [address]- 0621 Oct, [facility] [address] [facility] [place] [id number] [place] [address]- 2265 Oct, [facility] [address] [facility] [place] [id number] [place] [address]- 0406 Oct, [facility] [address] [id number] [place] [address]- 3184 Oct, Chronic pain syndrome G89.4 [facility] [id number] [place] [address] 82045- 3229 29 Sep, 2015 Generalized anxiety disorder F41.1 and Major depressive disorder, recurrent episode, moderate F33.1 [facility] [id number] [place] [address] 98147- 7580 Sep, [facility] [id number] [place] [address] 77035- 0476 Sep, [facility] [id number] [place] [address] 14476- 9392 14 Sep, 2015 Generalized anxiety disorder F41.1 [facility] [id number] [place] [address] 66191- 1415 13 Sep, 2015 Cramp of both lower extremities R25.2 and Cervicalgia M54.2 [facility] [id number] [place] [address] 31299- 3144 Sep, Generalized anxiety disorder F41.1 [facility] [id number] [place] [address] 80340- 0263 Sep, [facility] [id number] [place] [address] 96156 -5032 August, Rash R21 ; Itching L29.9 and Allergic response, subsequent encounter T78.40XD [facility] [id number] [place] [address] 68714- 7575 August, Primary insomnia F51.01 [facility] [id number] [place] [address] 20896 -7106 August, Rash R21 ; Itching L29.9 and Allergic response, initial encounter T78.40XA [facility] [address] 80570- 9649 August, [facility] [id number] [place] [address] 94468- 5184 August, Cramp of both lower extremities R25.2 [facility] [address] [place] [address]- 5084 August, Back pain M54.9 [facility] [id number] [place] [address] 15654- 5058 August, [facility] [id number] [place] [address] 96204- 2850 August, [facility] [id number] [place] [address] 53117 -0642 August, Cramp of both lower extremities R25.2 [facility] [id number] [place] [address] 62586- 2195 August, [facility] [id number] [place] [address] 32949- 9054 August, Syncope R55 ; Paroxysmal atrial fibrillation I48.0 ; Dementia without behavioral disturbance, unspecified dementia type F03.90 and Chronic pain syndrome G89.4 [facility] [id number] [place] [address] 39073- 1631 August, Type 2 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 and Syncope R55 [facility] [id number] [place] [address] 24342- 8952 Jul, [facility] [id number] [place] [address] 62446- 8017 Jul, [facility] [id number] [place] [address] 91417- 1758 Jul, [facility] [id number] [place] [address] 73465- 7919 Jul, [facility] [id number] [place] [address] 56300- 9718 Jul, [facility] [id number] [place] [address] 69029- 5107 Jul, UTI (urinary tract infection) N39.0 [facility] [id number] [place] [address] 40082- 2998 18 Jul, 2015 [facility] [id number], [place] [address]- 1979 18 Jul, 2015 Major depressive disorder, recurrent episode, moderate F33.1 and Generalized anxiety disorder F41.1 [facility] [address], [place] [address]- 6806 Jul, Generalized anxiety disorder F41.1 [facility] [id number] [place] [address] 85556- 0807 Jul, Diarrhea R19.7 [facility] [id number] [place] [address] 78763- 5225 Jul, [facility] [id number] [place] [address] 23150- 5165 Jun, [facility] [id number] [place] [address] 84056- 3053 Jun, Eczema L30.9 [facility] [id number] [place] [address] 33624- 0357 Jun, [facility] [id number] [place] [address] 49889- 0156 Jun, COPD (chronic obstructive pulmonary disease) J44.9 [facility] [id number], [place] [address]- 2105 Jun, [facility] [id number], [place] [address]- 6444 Jun, Major depressive disorder, recurrent episode, moderate F33.1 and Generalized anxiety disorder F41.1 [facility] [id number], [place] [address]- 7539 May, [facility] [id number] [place] [address] 31138- 1428 May, UTI (urinary tract infection) N39.0 [facility] [id number] [place] [address] 83907- 5836 May, [facility] [id number], [place] [address]- 0799 May, [facility] [id number] [place] [address] 049357- 7621 May, [facility] [id number] [place] [address] 97854- 2263 May, [facility] [id number] [place] [address] 27246- 3910 Apr, Major depressive disorder, recurrent episode, moderate F33.1 and Generalized anxiety disorder F41.1 [facility] [id number] [place] [address] 33974- 1410 Apr, COPD (chronic obstructive pulmonary disease) J44.9 [facility] [id number] [place] [address] 25088- 2926 Apr, [facility] [id number] [place] [address] 46622- 0976 Apr, Atrial flutter I48.92 [facility] [id number] [place] [address] 50623- 5066 Apr, [facility] [id number], [place] [address]- 9219 Apr, [facility] [id number], [place] [address]- 2951 Mar, [facility] [id number], [place] [address]- 5565 Mar, [facility] [id number], [place] [address]- 4109 Mar, [facility] [id number] [address]- 5876 Mar, Hyperlipidemia E78.5 ; Type 2 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 ; Major depressive disorder, recurrent episode, moderate F33.1 and Chronic pain syndrome G89.4 [facility] [id number], [place] [address]- 9558 16 Mar, 2015 [facility] [id number], [place] [address]- 9331 14 Mar, 2015 [facility] [id number], [place] [address]- 2606 Mar, [facility] [address] [facility] [place] [id number] [place] [address] 55475- 1331 Mar, [facility] [id number] [place] [address] 65620- 6504 Feb, COPD (chronic obstructive pulmonary disease) J44.9 and Back pain M54.9 [facility] [id number], [place] [address]- 2525 Feb, [facility] [id number] [place] [address] 50769- 8923 Feb, [facility] [id number], [place] [address]- 9448 Feb, [facility] [id number] [place] [address] 66820- 6917 Feb, [facility] [id number], [place] [address]- 6895 Feb, [facility] [id number] [place] [address] 44718- 3460 Feb, [facility] [id number], [place] [address]- 7410 Feb, [facility] [id number] [place] [address] 94109- 5070 Feb, [facility] [id number], [place] [address]- 9072 Feb, Diabetes E11.9 ; Back pain M54.9 and COPD (chronic obstructive pulmonary disease) J44.9 [facility] [id number], [place] [address]- 1062 Jan, [facility] [id number] [place] [address] 64710- 2357 Jan, Major depression, recurrent F33.9 and Generalized anxiety disorder F41.1 [facility] [id number] [place] [address] 74456- 4721 Jan, Chronic pain G89.29 [facility] [id number] [place] [address] 82986- 1775 Jan, [facility] [id number] [place] [address] 81469- 1731 Jan, [facility] [id number] [place] [address] 64265- 7578 Jan, [facility] [id number] [place] [address] 72742- 5287 Jan, [facility] [id number] [place] [address] 71089- 6793 Jan, Nicotine dependence F17.200 [facility] [id number] [place] [address] 72552- 5954 Jan, Nicotine dependence F17.200 and Back pain M54.9 [facility] [id number] [address]- 2189 Jan, [facility] [id number] [place] [address] 06178- 1160 Dec, [facility] [id number] [place] [address] 71514- 1024 25 Dec, 2015 Anxiety, generalized 300.02 and Major depression, recurrent 296.30 [facility] [id number] [place] [address] 89674- 4262 24 Dec, 2014 [facility] [id number] [place] [address] 06724- 3381 Dec, [facility] [id number], [place] [address]- 1105 17 Dec, 2014 [facility] [id number] [place] [address] 66005- 7796 15 Dec, 2014 [facility] [id number], [place] [address]- 4747 14 Dec, 2014 [facility] [id number] [place] [address] 12444- 2844 11 Dec, 2014 [facility] [id number] [place] [address] 67620- 7887 10 Dec, 2014 [facility] [id number] [place] [address] 28407- 3934 08 Dec, 2014 Skin tear 879.8 [facility] [id number] [place] [address] 57663- 6757 08 Dec, 2014 Routine gynecological examination V72.31 ; Breast cancer screening V76.10 and Family history of breast cancer in first degree relative V16.3 [facility] [id number] [place] [address] 20857- 0037 03 Dec, 2014 [facility] [id number] [place] [address] 16260- 8953 Dec, [facility] [id number] [place] [address] 57770- 6959 Nov, [facility] [id number] [place] [address] 06844- 2308 Nov, [facility] [id number] [place] [address] 28687- 9895 Nov, Poor balance 781.99 and Vascular dementia, uncomplicated 290.40 [facility] [id number] [place] [address] 56536- 1396 Nov, [facility] [id number] [place] [address] 56521- 1147 Nov, Major depression, recurrent 296.30 and Anxiety, generalized 300.02 [facility] [id number], [place] [address]- 9248 Nov, [facility] [id number], [place] [address]- 1241 Nov, [facility] [id number], [place] [address]- 7097 Nov, [facility] [id number] [place] [address] 65484- 8346 Nov, [facility] [id number] [place] [address] 09100- 3371 Nov, Vascular dementia, uncomplicated 290.40 and Lumbago 724.2 [facility] [id number] [place] [address] 59931- 0300 Nov, [facility] [id number] [place] [address] 73692- 1739 Nov, [facility] [id number], [place] [address]- 5651 Nov, [facility] [id number] [place] [address] 39633- 0875 Oct, [facility] [address], [place] [address]- 2908 Oct, [facility] [id number] [place] [address] 80723- 8398 Oct, [facility] [id number], [place] [address]- 5201 Oct, COPD (chronic obstructive pulmonary disease) 496 and Hyperlipidemia 272.4 [facility] [id number], [place] [address]- 9305 Oct, Major depression, recurrent 296.30 and Anxiety, generalized 300.02 [facility] [id number], [place] [address]- 1172 Oct, [facility] [id number], [place] [address]- 4951 Oct, [facility] [id number] [place] [address] 70041- 2439 Oct, [facility] [address], [place] [address]- 6740 Sep, Lumbago 724.2 and Anxiety state, unspecified 300.00 [facility] [id number] [place] [address] 69086- 9313 Sep, [facility] [id number] [place] [address] 35237- 1057 Sep, [facility] [id number] [place] [address] 92202- 4108 August, [facility] [id number] [place] [address] 95032- 8366 August, Major depression, recurrent 296.30 ; Anxiety, generalized 300.02 and No condition on [place] II V71.09 [facility] [id number], [place] [address]- 4047 August, [facility] [id number] [address]- 8921 August, [facility] [id number], [place] [address]- 8904 Jul, [facility] [id number], [place] [address]- 2213 Jul, [facility] [id number], [place] [address]- 6600 Jul, [facility] [id number]- 3485 Jun, [facility] [id number], [place] [address]- 3519 Jun, [facility] [id number] [place] [address]- 2030 27 Jun, 2014 [facility] [place] [facility] [address] [id number] [place] [address]- 8588 27 Jun, 2014 [facility] [place] [facility] [address] [id number] [place] [address]- 4988 26 Jun, 2014 [facility] [place] [facility] [address] [id number] [place] [address]- 9547 Jun, [facility] [place] [facility] [address] [id number] [place] [address]- 6714 23 Jun, 2014 [facility] [place] [facility] [address] [id number] [place] [address]- 2583 17 Jun, 2014 [facility] [place] [facility] [address] [id number] [place] [address]- 7674 Jun, [facility] [place] [facility] [address] [id number] [place] [address]- 5111 Jun, [facility] [place] [facility] [address] [id number] [place] [address]- 2509 10 Jun, 2014 [facility] [place] [facility] [address] [id number] [place] [address]- 4943 10 Jun, 2014 [facility] [place] [facility] [address] [id number] [place] [address]- 3407 Jun, [facility] [place] [facility] [address] [id number] [place] [address]- 2263 Jun, [facility] [place] [facility] [address] [id number] [place] [address]- 6114 Jun, [facility] [place] [facility] [address] [id number] [place] [address]- 4023 Jun, [facility] [place] [facility] [address] [id number] [place] [address]- 0747 May, [facility] [place] [facility] [address] [id number] [place] [address] May, [facility] [place] [facility] [address] [id number] [place] [address] May, 2014 [facility] [place] [facility] [address] [id number] [place] [address] May, 2014 [facility] [place] [facility] [address] [id number] [place] [address] 2546 May, 2014 [facility] [place] [facility] [address] [id number] [place] [address] 2543 May, 2014 [facility] [place] [facility] [address] [id number] [place] [address] 2542 May, 2014 [facility] [place] [facility] [address] [id number] [place] [address] May, 2014 [facility] [place] [facility] [address] [id number] [place] [address] May, 2014 [facility] [place] [facility] [address] [id number] [place] [address] May, 2014 [facility] [place] [facility] [address] [id number] [place] [address]- [address] May, 2014 [facility] [place] [facility] [address] [id number] [place] [address] May, [facility] [place] [facility] [address] [id number] [place] [address] 254 May, 2014 [facility] [place] [facility] [address] [id number] [place] [address] May, [facility] [place] [facility] [address] [id number] [place] [address] 2546 Apr, [facility] [place] [facility] [address] [id number] [place] [address] Apr, [facility] [place] [facility] [address] [id number] [place] [address] Apr, [facility] [place] [facility] [address] [id number] [place] [address]- [address] Apr, [facility] [address] [id number] [place] [address] Apr, [facility] [place] [facility] [address] [id number] [place] [address]- [address] Apr, [facility] [place] [facility] [address] [id number] [place] [address] Apr, [facility] [place] [facility] [address] [id number] [place] [address]- [address]67 Apr, [facility] [place] [facility] [address] [id number] [place] [address] Apr, [facility] [place] [facility] [address] [id number] [place] [address] Apr, [facility] [place] [facility] [address] [id number] [place] [address] Apr, [facility] [address] [id number] [place] [address] Apr, [facility] [place] [facility] [address] [id number] [place] [address] Mar, [facility] [place] [facility] [address] [id number] [place] [address]- [address] Mar, [facility] [place] [facility] [address] [id number] [place] [address] Mar, [facility] [place] [facility] [address] [id number] [place] [address] Mar, [facility] [place] [facility] [address] [id number] [place] [address] Mar, [facility] [place] [facility] [address] [id number] [place] [address] Mar, [facility] [place] [facility] [address] [id number] [place] [address] Mar, [facility] [place] [facility] [address] [id number] [place] [address]- [address] 19 Mar, 2014 [facility] [place] [facility] [address] [id number] [place] [address]- [address] 15 Mar, 2014 [facility] [place] [facility] [address] [id number] [place] [address]- 114[address] 15 Mar, 2014 [facility] [place] [facility] [address] [id number] [place] [address]- [address] Mar, [facility] [place] [facility] [address] [id number] [place] [address]- [address]267 Mar, [facility] [place] [facility] [address] [id number] [place] [address]- [address]846 Mar, [facility] [place] [facility] [address] [id number] [place] [address]- [address] Mar, [facility] [place] [facility] [address] [id number] [place] [address]- [address] Mar, [facility] [place] [facility] [address] [id number] [place] [address]- [address] Mar, [facility] [place] [facility] [address] [address] [id number] [place] [address] Mar, [facility] [place] [facility] [address] [id number] [place] [address] 97[address] Mar, [facility] [place] [facility] [address] [id number] [place] [address] 4114 Mar, [facility] [place] [facility] [address] [id number] [place] [address] 1438 Mar, [facility] [place] [facility] [address] [id number] [place] [address]- 0528 Feb, [facility] [place] [facility] [address] [id number] [place] [address] 8540 Feb, [facility] [place] [facility] [address] [id number] [place] [address]- 0606 Feb, [facility] [place] [facility] [address] [id number] [place] [address] 2786 Feb, [facility] [place] [facility] [address] [id number] [place] [address] 7214 Feb, [facility] [place] [facility] [address] [id number] [place] [address]- 4207 Feb, [facility] [place] [facility] [address] [id number] [place] [address]- 8214 Feb, [facility] [place] [facility] [address] [id number] [place] [address]- 4786 Feb, [facility] [place] [facility] [address] [id number] [place] [address]- 2963 Feb, [facility] [place] [facility] [address] [id number] [place] [address]- 1355 Feb, [facility] [place] [facility] [address] [id number] [place] [address]- 2145 Feb, [facility] [place] [facility] [address] [id number] [place] [address]- 2786 Feb, [facility] [place] [facility] [address] [facility] [place] [id number] [place] [address]- 4912 Feb, [facility] [place] [facility] [address] [id number] [place] [address]- 7312 Feb, [facility] [place] [facility] [address] [id number], [place] [address] Feb, [facility] [place] [facility] [address] [id number] [place] [address]- 4563 Feb, [facility] [place] [facility] [address] [id number] [place] [address]- 3224 Feb, [facility] [place] [facility] [address] [id number] [place] [address]- 1619 Jan, [facility] [place] [facility] [address] [id number] [place] [address]- 3028 Jan, [facility] [place] [facility] [address] [id number] [place] [address]- 7887 Jan, [facility] [place] [facility] [address] [id number] [place] [address]- 0795 Jan, [facility] [place] [facility] [address] [id number] [place] [address]- 2590 Jan, [facility] [place] [facility] [address] [id number] [place] [address]- 4668 Jan, [facility] [place] [facility] [address] [id number] [place] [address]- 6748 Jan, [facility] [place] [facility] [address] [id number] [place] [address]- 1155 Jan, [facility] [place] [facility] [address] [id number] [place] [address]- 2780 Jan, [facility] [place] [facility] [address] [id number] [place] [address]- 0831 Jan, [facility] [place] [facility] [address] [id number] [place] [address]- 9157 Jan, [facility] [place] [facility] [address] [id number] [place] [address]- 2900 Dec, [facility] [place] [facility] [address] [id number] [place] [address]- 0160 Dec, [facility] [place] [facility] [address] [id number] [place] [address]- 7519 Nov, [facility] [place] [facility] [address] [id number] [place] [address]- 0785 Nov, [facility] [place] [facility] [address] [id number] [place] [address]- 0383 Nov, [facility] [place] [facility] [address] [id number] [place] [address]- 8067 Nov, [facility] [place] [facility] [address] [id number] [place] [address]- 1201 Nov, [facility] [place] [facility] [address] [id number] [place] [address]- 2618 Nov, [facility] [place] [facility] [address] [id number] [place] [address]- 3618 Nov, [facility] [place] [facility] [address] [id number] [place] [address]- 6510 Oct, [facility] [place] [facility] [address] [id number] [place] [address]- 0873 Oct, [facility] [place] [facility] [address] [id number] [place] [address]- 8164 Oct, [facility] [place] [facility] [address] [id number] [place] [address]- 3362 Oct, [facility] [place] [facility] [address] [id number] [place] [address]- 6734 Sep, [facility] [place] [facility] [address] [id number] [place] [address]- 7589 Sep, [facility] [place] [facility] [address] [id number] [place] [address]- 5946 Sep, [facility] [place] [facility] [address] [id number] [place] [address]- 8945 Sep, [facility] [place] [facility] [address] [id number] [place] [address]- 8995 Sep, [facility] [place] [facility] [address] [id number] [place] [address]- 5022 Sep, [facility] [place] [facility] [address] [id number] [place] [address]- 1614 Sep, [facility] [place] [facility] [address] [id number] [place] [address]- 6975 Sep, [facility] [place] [facility] [address] [id number] [place] [address]- 5309 Sep, [facility] [address] [id number] [place] [address]- 0936 Sep, [facility] [address] [id number] [place] [address]- 6330 Sep, [facility] [address] [id number] [place] [address]- 8270 Sep, [facility] [place] [facility] [address] [id number] [place] [address]- 7063 Sep, [facility] [address] [id number] [place] [address]- 8595 Sep, [facility] [address] [id number] [place] [address]- 2679 August, [facility] [address] [id number] [place] [address]- 0225 August, [facility] [address] [id number] [place] [address]- 8839 August, [facility] [address] [id number] [place] [address]- 2699 August, [facility] [address] [id number] [place] [address]- 6174 August, [facility] [place] [facility] [address] [id number] [place] [address]- 1570 August, [facility] [place] [facility] [address] [id number] [place] [address]- 1025 August, [facility] [place] [facility] [address] [id number] [place] [address]- 9744 August, [facility] [place] [facility] [address] [id number] [place] [address]- 9353 August, [facility] [place] [facility] [address] [id number] [place] [address]- 7103 August, [facility] [address] [id number] [place] [address]- 0723 August, [facility] [place] [facility] [address] [id number] [place] [address]- 4037 August, [facility] [place] [facility] [address] [id number] [place] [address]- 3275 August, [facility] [place] [facility] [address] [id number] [place] [address]- 8769 August, [facility] [place] [facility] [address] [id number] [place] [address]- 1128 August, [facility] [place] [facility] [address] [id number] [place] [address]- 9276 August, [facility] [place] [facility] [address] [id number] [place] [address]- 6196 August, [facility] [place] [facility] [address] [id number] [place] [address]- 8982 August, [facility] [place] [facility] [address] [id number] [place] [address]- 7160 August, [facility] [place] [facility] [address] [id number] [place] [address]- 3457 Jul, [facility] [place] [facility] [address] [id number] [place] [address]- 6640 Jul, [facility] [place] [facility] [address] [id number] [place] [address]- 8876 Jul, [facility] [place] [facility] [address] [id number] [place] [address]- 4611 Jul, [facility] [place] [facility] [address] [id number] [place] [address]- 6359 Jun, [facility] [place] [facility] [address] [id number] [place] [address]- 9458 Jun, [facility] [place] [facility] [address] [id number] [place] [address]- 9668 Jun, [facility] [place] [facility] [address] [id number] [place] [address]- 7586 Jun, [facility] [place] [facility] [address] [id number] [place] [address] Jun, [facility] [place] [facility] [address] [facility] [place] [id number] [place] [address]- 0898 Jun, [facility] [place] [facility] [address] [id number] [place] [address]- 8338 Jun, [facility] [place] [facility] [address] [id number] [place] [address]- 5951 Jun, [facility] [place] [facility] [address] [facility] [place] [id number] [place] [address]- 8653 Jun, [facility] [place] [facility] [address] [facility] [place] [id number] [place] [address]- 2819 Jun, [facility] [place] [facility] [address] [facility] [place] [id number] [place] [address]- 6995 May, [facility] [place] [facility] [address] [facility] [place] [id number] [place] [address]- 6485 May, [facility] [place] [facility] [address] [facility] [place] [id number] [place] [address]- 9977 May, [facility] [place] [facility] [address] [facility] [place] [id number] [place] [address]- 8046 May, [facility] [place] [facility] [address] [facility] [place] [id number], [place] [address]- 6698 May, [facility] [place] [facility] [address] [id number] [place] [address]- 1578 May, [facility] [place] [facility] [address] [facility] [place] [id number] [place] [address]- 5870 20 May, 2013 [facility] [place] [facility] [address] [facility] [place] [id number] [place] [address]- 0338 May, [facility] [place] [facility] [address] [id number] [place] [address]- 1368 May, [facility] [place] [facility] [address] [id number] [place] [address]- 5305 May, [facility] [place] [facility] [address] [id number] [place] [address]- 3430 May, [facility] [place] [facility] [address] [id number] [place] [address]- 9742 May, [facility] [place] [facility] [address] [id number] [place] [address]- 1186 May, [facility] [place] [facility] [address] [id number] [place] [address]- 1301 May, [facility] [place] [facility] [address] [id number] [place] [address]- 8322 May, [facility] [place] [facility] [address] [id number] [place] [address]- 0934 May, [facility] [place] [facility] [address] [id number] [place] [address]- 0047 May, [facility] [place] [facility] [address] [id number] [place] [address]- 8832 Apr, [facility] [place] [facility] [address] [id number] [place] [address]- 8242 Apr, [facility] [place] [facility] [address] [id number] [place] [address]- 7573 Apr, [facility] [place] [facility] [address] [id number] [place] [address]- 2030 Apr, [facility] [place] [facility] [address] [id number] [place] [address]- 5541 Apr, [facility] [place] [facility] [address] [id number] [place] [address]- 0432 Apr, [facility] [place] [facility] [address] [id number] [place] [address]- 2542 Apr, [facility] [address] [id number] [place] [address]- 5602 Mar, [facility] [address] [id number] [place] [address]- 3516 Mar, [facility] [address] [id number] [place] [address]- 9506 Mar, [facility] [address] [id number] [place] [address]- 3551 Mar, [facility] [address] [id number] [place] [address]- 9249 Mar, [facility] [address] [id number] [place] [address]- 8962 Mar, [facility] [address] [id number] [place] [address]- 5681 Mar, [facility] [address] [id number] [place] [address]- 0153 Mar, [facility] [address] [id number] [place] [address]- 4116 Mar, [facility] [address] [facility] [place] [id number] [place] [address]- 0182 Mar, [facility] [address] [id number] [place] [address]- 3038 Mar, [facility] [address] [id number] [place] [address]- 5914 Feb, [facility] [address] [id number] [place] [address]- 8574 Feb, [facility] [address] [id number] [place] [address]- 9776 Feb, [facility] [address] [id number] [place] [address]- 7382 Feb, [facility] [place] [facility] [address] [id number] [place] [address]- 1748 19 Feb, 2013 [facility] [place] [facility] [address] [id number] [place] [address]- 3608 19 Feb, 2013 [facility] [place] [facility] [address] [id number] [place] [address]- 8233 15 Feb, 2013 [facility] [place] [facility] [address] [id number] [place] [address]- 5439 14 Feb, 2013 [facility] [place] [facility] [address] [id number] [place] [address]- 2818 14 Feb, 2013 [facility] [place] [facility] [address] [id number] [place] [address]- 9690 Feb, [facility] [place] [facility] [address] [id number] [place] [address]- 2653 Feb, [facility] [place] [facility] [address] [id number], [place] [address]- 8757 Feb, [facility] [place] [facility] [address] [id number], [place] [address]- 5579 Feb, [facility] [place] [facility] [address] [id number], [place] [address]- 9588 Feb, [facility] [place] [facility] [address] [id number], [place] [address]- 3650 Feb, [facility] [place] [facility] [address] [id number], [place] [address]- 5091 05 Feb, 2013 [facility] [place] [facility] [address] [id number], [place] [address]- 4012 Jan, [facility] [place] [facility] [address] [id number], [place] [address]- 9769 Jan, [facility] [place] [facility] [address] [id number], [place] [address]- 7564 Jan, [facility] [place] [facility] [address] [id number], [place] [address]- 2818 Jan, [facility] [place] [facility] [address] [id number] [place] [address]- 5178 Jan, [facility] [place] [facility] [address] [id number] [place] [address]- 2621 Jan, [facility] [place] [facility] [address] [id number] [place] [address]- 2905 Jan, [facility] [place] [facility] [address] [id number] [place] [address]- 8203 Jan, [facility] [place] [facility] [address] [id number] [place] [address]- 8561 10 Jan, 2013 [facility] [place] [facility] [address] [id number] [place] [address]- 3518 27 Dec, 2012 [facility] [place] [facility] [address] [id number] [place] [address]- 5698 20 Dec, 2012 [facility] [place] [facility] [address] [id number] [place] [address]- 8927 19 Dec, 2012 [facility] [place] [facility] [address] [id number] [place] [address]- 5337 10 Dec, 2012 [facility] [place] [facility] [address] [id number] [place] [address]- 9419 04 Dec, 2012 [facility] [place] [facility] [address] [id number] [place] [address]- 7919 Dec, [facility] [place] [facility] [address] [id number] [place] [address]- 1213 Nov, [facility] [place] [facility] [address] [id number] [place] [address]- 1504 Nov, [facility] [place] [facility] [address] [id number] [place] [address]- 3043 Nov, [facility] [place] [facility] [address] [id number] [place] [address]- 3874 Nov, [facility] [place] [facility] [address] [id number] [place] [address]- 9501 Nov, [facility] [place] [facility] [address] [id number] [place] [address]- 1307 Nov, [facility] [place] [facility] [address] [id number] [place] [address]- 5676 Nov, [facility] [place] [facility] [address] [id number] [place] [address]- 4609 Nov, [facility] [place] [facility] [address] [id number] [place] [address]- 2784 Nov, [facility] [place] [facility] [address] [id number] [place] [address]- 8489 Nov, [facility] [place] [facility] [address] [id number] [place] [address]- 4275 Oct, [facility] [place] [facility] [address] [id number] [place] [address]- 3406 Oct, [facility] [place] [facility] [address] [id number] [place] [address]- 6485 Oct, [facility] [place] [facility] [address] [id number] [place] [address]- 7287 Oct, [facility] [place] [facility] [address] [id number] [place] [address]- 2996 Oct, [facility] [place] [facility] [address] [id number] [place] [address]- 2083 Oct, [facility] [place] [facility] [address] [id number] [place] [address] Oct, [facility] [place] [facility] [address] [id number] [place] [address] Oct, [facility] [place] [facility] [address] [id number] [place] [address] Sep, [facility] [place] [facility] [address] [id number] [place] [address] Sep, [facility] [address] [id number] [place] [address] Sep, [facility] [place] [facility] [address] [id number] [place] [address] Sep, [facility] [place] [facility] [address] [id number] [place] [address] Sep, [facility] [place] [facility] [address] [id number] [place] [address] Sep, [facility] [place] [facility] [address] [id number] [place] [address] Sep, [facility] [place] [facility] [address] [id number] [place] [address] Sep, [facility] [place] [facility] [address] [id number] [place] [address] August, [facility] [place] [facility] [address] [id number] [place] [address] August, [facility] [place] [facility] [address] [id number] [place] [address] August, [facility] [place] [facility] [address] [id number] [place] [address] August, [facility] [place] [facility] [address] [id number] [place] [address] August, [facility] [place] [facility] [address] [id number], [place] [address] Jul, [facility] [place] [facility] [address] [id number] [place] [address] Jul, [facility] [place] [facility] [address] [id number] [place] [address] Jul, [facility] [place] [facility] [address] [id number] [place] [address] Jul, [facility] [place] [facility] [address] [id number] [place] [address] 02 Jul, 2012 [facility] [address] [id number] [place] [address]- [address] 18 Jun, 2012 [facility] [address] [id number] [place] [address] 18 Jun, 2012 [facility] [address] [id number] [place] [address] 15 Jun, 2012 [facility] [place] [facility] [address] [id number] [place] [address]- [address] 14 Jun, 2012 [facility] [address] [id number] [place] [address] Jun, [facility] [address] [id number] [place] [address] 08 Jun, 2012 [facility] [address] [id number] [place] [address]- [address] 08 Jun, 2012 [facility] [address] [id number] [place] [address]- [address] Jun, [facility] [address] [id number] [place] [address] Jun, [facility] [address] [facility] [place] [id number] [place] [address] 27 May, 2012 [facility] [place] [facility] [address] [id number] [place] [address] May, [facility] [place] [facility] [address] [id number] [place] [address] 20 May, 2012 [facility] [place] [facility] [address] [id number] [place] [address]- [address] 12 May, 2012 [facility] [place] [facility] [address] [id number] [place] [address]- 2016 Apr, [facility] [place] [facility] [address] [id number] [place] [address]- [address] Apr, [facility] [place] [address] [id number] [place] [address] Apr, [facility] [place] [address] [id number] [place] [address]- [address]266 Apr, [facility] [place] [address] [id number] [place] [address]- [address] Apr, [facility] [place] [address] [id number] [place] [address]- [address] Apr, [facility] [place] [address] [id number] [place] [address]- [address]166 Apr, [facility] [place] [address] [id number] [place] [address]- [address] Mar, [facility] [place] [id number] Mar, [facility] [place] [address] [id number] [place] [address]- 49[address] Mar, [facility] [place] [address] [id number] [place] [address]- [address] Mar, [facility] [place] [address] [id number] [place] [address]- [address] Mar, [facility] [place] [address] [id number] [place] [address]- [address] Mar, [facility] [place] [address] [id number] [place] [address] Mar, [facility] [place] [address] [id number] [place] [address]- [address] Mar, [facility] [place] [address] [id number] [place] [address]- [address] Mar, [facility] [place] [address] [id number] [place] [address]- [address] Mar, [facility] [place] [address] [id number] [place] [address] Mar, [facility] [place] [facility] [address] [id number] [place] [address]- 59[address] Mar, [facility] [place] [facility] [address] [id number] [place] [address]- [address] Mar, [facility] [place] [facility] [address] [id number] [place] [address] Mar, [facility] [place] [facility] [address] [id number] [place] [address]- 73[address] Mar, [facility] [place] [facility] [address] [id number] [place] [address]- 1234 Mar, [facility] [place] [facility] [address] [id number] [place] [address]- 8007 Mar, [facility] [place] [facility] [address] [id number] [place] [address]- 49[address] Feb, [facility] [place] [facility] [address] [id number] [place] [address]- [address] Feb, [facility] [place] [facility] [address] [id number] [place] [address]- 4488 Feb, [facility] [place] [facility] [address] [id number] [place] [address]- 5832 Feb, [facility] [place] [facility] [address] [id number], [place] [address]- [address]78 Feb, [facility] [place] [facility] [address] [id number], [place] [address]- 7926 Feb, [facility] [place] [facility] [address] [id number] [place] [address]- 8981 Feb, [facility] [place] [facility] [address] [id number], [place] [address]- 74[address] Feb, [facility] [place] [facility] [address] [id number], [place] [address]- [address]1 Feb, [facility] [place] [facility] [address] [id number] [place] [address]- [address] 16 Feb, 2012 [facility] [place] [facility] [address] [id number] [place] [address] Feb, [facility] [place] [facility] [address] [id number] [place] [address] Feb, [facility] [place] [facility] [address] [id number] [place] [address] Feb, [facility] [place] [facility] [address] [id number] [place] [address] Feb, [facility] [place] [facility] [address] [id number] [place] [address] 3541 Feb, [facility] [place] [facility] [address] [id number] [place] [address] 6244 Feb, [facility] [place] [facility] [address] [facility] [place] [id number] [place] [address]471 Jan, [facility] [place] [facility] [address] [id number] [place] [address] 1007 Jan, [facility] [place] [facility] [address] [facility] [place] [id number] [place] [address] 50[address] Jan, [facility] [place] [facility] [address] [facility] [place] [id number] [place] [address] 6824 29 Jan, 2012 [facility] [place] [facility] [address] [facility] [place] [id number] [place] [address] Jan, [facility] [place] [facility] [address] [facility] [id number], [place] [address] 43[address] Jan, [facility] [place] [facility] [address] [id number] [place] [address] 1565 Jan, [facility] [place] [facility] [address] [facility] [place] [id number] [place] [address]- 5060 24 Jan, 2012 [facility] [place] [facility] [address] [facility] [place] [id number], [place] [address] 17 Jan, 2012 [facility] [place] [facility] [address] [id number] [place] [address]- 6278 17 Jan, 2012 [facility] [place] [facility] [address] [id number] [place] [address]- [address] Jan, [facility] [place] [facility] [address] [id number] [place] [address]- 2447 Jan, [facility] [place] [facility] [address] [id number] [place] [address]- 9001 Jan, [facility] [place] [facility] [address] [id number] [place] [address]- 3719 Jan, [facility] [place] [facility] [address] [id number] [place] [address]- 5296 Jan, [facility] [place] [facility] [address] [id number] [place] [address]- 1313 Jan, [facility] [place] [facility] [address] [id number] [place] [address]- 5921 Jan, [facility] [place] [facility] [address] [id number] [place] [address]- 4829 21 Dec, 2011 [facility] [place] [facility] [address] [id number] [place] [address]- 1501 20 Dec, 2011 [facility] [place] [facility] [address] [id number] [place] [address]- 2838 18 Dec, 2011 [facility] [place] [facility] [address] [id number] [place] [address]- 9295 18 Sep, 2011 [facility] [place] [facility] [address] [id number] [place] [address]- 3696 10 Dec, 2011 [facility] [place] [facility] [address] [id number] [place] [address]- 2545 10 Dec, 2011 [facility] [place] [facility] [address] [id number] [place] [address]- 7282 10 Dec, 2011 [facility] [place] [facility] [address] [id number] [place] [address]- 0470 Dec, [facility] [place] [facility] [address] [id number] [place] [address]- 4926 Nov, [facility] [place] [facility] [address] [id number] [place] [address]- 7026 Nov, [facility] [place] [facility] [address] [id number] [place] [address]- 6316 Nov, [facility] [place] [facility] [address] [id number] [place] [address]- 9791 Nov, [facility] [place] [facility] [address] [id number] [place] [address]- 0743 Nov, [facility] [place] [facility] [address] [id number] [place] [address]- 2110 Nov, [facility] [place] [facility] [address] [id number] [place] [address]- 7927 Oct, [facility] [place] [facility] [address] [id number] [place] [address]- 3099 Oct, [facility] [place] [facility] [address] [id number] [place] [address]- 7207 Oct, [facility] [place] [facility] [address] [id number] [place] [address]- 2965 Oct, [facility] [place] [facility] [address] [id number] [place] [address]- 3395 Oct, [facility] [place] [facility] [address] [id number] [place] [address]- 3170 Oct, [facility] [place] [facility] [address] [id number] [place] [address]- 3785 Oct, [facility] [place] [facility] [address] [id number] [place] [address]- 8234 Sep, [facility] [place] [facility] [address] [id number] [place] [address]- 8900 Sep, [facility] [place] [facility] [address] [id number] [place] [address]- 1319 21 Sep, 2011 [facility] [address] [id number] [place] [address]- 4580 20 Sep, 2011 [facility] [place] [facility] [address] [id number] [place] [address]- 4804 19 Sep, 2011 [facility] [address] [id number] [place] [address]- 8573 15 Sep, 2011 [facility] [address] [id number] [place] [address]- 7596 14 Sep, 2011 [facility] [address] [id number] [place] [address]- 9824 11 Sep, 2011 [facility] [address] [id number] [place] [address]- 7798 05 Sep, 2011 [facility] [address] [id number] [place] [address]- 3304 04 Sep, 2011 [facility] [address] [id number] [place] [address]- 9069 August, [facility] [address] [id number] [place] [address]- 3206 August, [facility] [address] [id number] [place] [address]- 5946 August, [facility] [address] [id number] [place] [address]- 2009 August, [facility] [address] [id number] [place] [address]- 9445 August, [facility] [place] [facility] [address] [id number] [place] [address]- 4703 Jul, [facility] [place] [facility] [address] [id number] [place] [address]- 2467 Jul, [facility] [address] [id number] [place] [address]- 7990 Jul, [facility] [place] [facility] [address] [id number] [place] [address]- 8608 17 Jul, 2011 [facility] [place] [facility] [address] [id number] [place] [address]- 8916 Jul, [facility] [place] [facility] [address] [id number] [place] [address]- 7681 Jul, [facility] [place] [facility] [address] [id number] [place] [address]- 2636 Jul, [facility] [place] [facility] [address] [id number] [place] [address]- 8939 29 Jun, 2011 [facility] [place] [facility] [address] [id number] [place] [address]- 3786 Jun, [facility] [place] [facility] [address] [id number] [place] [address]- 8248 Jun, [facility] [place] [facility] [address] [id number] [place] [address]- 3271 Jun, [facility] [place] [facility] [address] [id number] [place] [address]- 6135 Jun, [facility] [place] [facility] [address] [id number] [place] [address]- 8534 May, [facility] [place] [facility] [address] [id number] [place] [address]- 3809 May, [facility] [place] [facility] [address] [id number] [place] [address]- 0784 May, [facility] [place] [facility] [address] [id number] [place] [address]- 4550 May, [facility] [place] [facility] [address] [id number] [place] [address]- 4782 May, [facility] [place] [facility] [address] [id number] [place] [address]- 0514 May, [facility] [place] [facility] [address] [id number] [place] [address]- 6522 Apr, [facility] [address] [id number] [place] [address]- 8933 Mar, [facility] [place] [facility] [address] [id number] [place] [address]507 Feb, [facility] [address] [id number] [place] [address]- 8720 Feb, [facility] [place] [facility] [address] [id number] [place] [address]- 9977 Feb, [facility] [address] [id number] [place] 3148 Feb, [facility] [place] [facility] [address] [id number] [place] [address]- 3824 Jan, [facility] [address] [id number] [place] [address]- 2467 Jan, [facility] [address] [id number] [place] [address]- 3857 Jan, [facility] [address] [id number] [place] [address]- 8276 24 Jan, 2011 [facility] [address] [id number] [place] [address]- 1036 14 Jan, 2011 [facility] [place] [facility] [address] [id number] [place] [address]- 4614 Dec, [facility] [place] [facility] [address] [id number] [place] [address]- 4804 Oct, [facility] [place] [facility] [address] [id number] [place] [address]- 7252 August, [facility] [place] [facility] [address] [id number] [place] [address]- 0875 Mar, [facility] [place] [facility] [address] [id number] [place] [address]- 8984 Mar, [facility] [place] [facility] [address] [id number] [place] [address]- 3109 16 Mar, 2010 [facility] [place] [facility] [address] [id number] [place] [address]- 2122 15 Mar, 2010 [facility] [place] [facility] [address] [id number] [place] [address]365 15 Mar, 2010 [facility] [place] [facility] [address] [id number] [place] [address]- 8176 08 Mar, 2010 [facility] [place] [facility] [address] [id number] [place] 4548 03 Mar, 2010 [facility] [place] [facility] [address] [id number] [place] [address]- 0072 24 Feb, 2010 [facility] [place] [facility] [address] [id number] [place] [address]- 8564 Feb, [facility] [place] [facility] [address] [id number], [place] [address]- 3312 Feb, [facility] [place] [facility] [address] [id number] [place] [address]- 8248 Jan, [facility] [place] [facility] [address] [id number], [place] [address]- 8659 18 Jan, 2010 [facility] [place] [facility] [address] [id number], [place] [address]- 0760 18 Jan, 2010 [facility] [place] [facility] [address] [id number], [place] [address]- 8486 Nov, [facility] [place] [facility] [address] [id number], [place] [address]- 0073 14 Sep, 2009 [facility] [place] [facility] [address] [id number], [place] [address]- 0615 August, [facility] [place] [facility] [address] [id number], [place] [address]- 1142 30 Mar, 2009 [facility] [place] [facility] [address] [id number], [place] [address]- 4356 Mar, [facility] [id number], [place] [address]- 4994 Feb, [facility] [id number] 3831 Feb, [facility] [id number], [place] [address]- 4487 Feb, [facility] [id number] [place] [address]87- 2408 Feb, [facility] [id number] [place] [address] 21521- 5715 Feb, [facility] [id number] [place] [address] 01577- 2858 Jan, [facility] [id number] [place] [address] 12904- 1587 Jan, [facility] [id number], [place] [address]- 4240 Jan, [facility] [id number] [place] [address] 025[address]- 9502 Jan, [facility] [id number], [place] [address]- 5282 Nov, [facility] [id number], [place] [address]- 3956 Sep, [facility] [id number], [place] [address]- 7687 August, [facility] [id number], [place] [address]- 7327 Jul, [facility] [id number], [place] [address]- 4225 May, IMMUNIZATIONS No Known Immunizations SOCIAL HISTORY Never Assessed REASON FOR VISIT medication question PLAN OF CARE VITAL SIGNS MEDICATIONS [...] ([place]) 09/11/17 Surgical History elbow surgery 08/2017 Hospitalization History surgeries Hospitalization History Atrial Flutter/Chest [...] Knee Surgery 07/16/17 Hospitalization History [facility]- left hand/wrist swelling 10/09/2017
--- OUTSIDE RECORDS SUMMARY | 2018-01-01 11:23 | XMS REPORT ---
Author Author PATRICK GALAVIZ Organization [facility] Address [address] [place] [address] Care Team Providers Care General Matcher Name Role Phone PATRICK GALAVIZ Unavailable PROBLEMS Type Condition ICD9-CM Code PHU88-ID Code Onset Dates Condition Status SNOMED Code Problem 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 Active 55524780 Problem Colon polyp K63.5 Active 03203191 Problem Screening breast examination Z12.39 Active 803859602 Problem Bilateral low back pain without sciatica M54.5 Active 484114657 Problem Postmenopausal Z78.0 Active 68837733 Problem Essential tremor G25.0 Active 83754204 Problem Osteopenia M85.80 Active 269796832 Problem Hyperlipidemia E78.5 Active 77121501 Problem Cigarette nicotine dependence without complication F17.210 Active 99098447 Problem Vascular dementia without behavioral disturbance F01.50 Active 25060983873701108 Problem Arthritis M19.90 Active 6182582 Problem Chronic atrial fibrillation I48.2 Active 539902992 Problem Dementia without behavioral disturbance, unspecified dementia type F03.90 Active 29108187 Problem Other chronic pancreatitis K86.1 Active 775540846 Problem Xeroderma Q80.9 Active 67722703 Problem Chronic obstructive pulmonary disease with acute lower respiratory infection J44.0 Active 011551091 Problem Type 2 diabetes mellitus with diabetic neuropathy, without long-term current use of insulin E11.40 Active 55241553 Problem Atherosclerosis of [place] artery of both lower extremities with intermittent claudication I70.213 Active 660857258295584 Problem Hammertoe of right foot M20.41 Active 790981087 Problem Hammertoe of left foot M20.42 Active 469348329 Problem Migraine without aura and with status migrainosus, not intractable G43.001 Active 066048160 Problem Migraine without aura and without status migrainosus, not intractable G43.009 Active 775104610 Problem Major depressive disorder, recurrent episode, moderate F33.1 Active 621305581 Problem Unspecified psychosis F29 Active 41821997 Problem Cervicalgia M54.2 Active 9191266852256 Problem Diabetic polyneuropathy associated with type 2 diabetes mellitus E11.42 Active 58105304 Problem COPD (chronic obstructive pulmonary disease) J44.9 Active 82716488 Problem Atherosclerotic heart disease of [place]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 I25.118 Active 1740554273507 Problem Gastroparesis K31.84 Active 260067992 Problem Stress incontinence of urine N39.3 Active 01722309 Problem Osteoporosis M81.0 Active 50458602 Problem Controlled type 2 diabetes mellitus without complication, without long -term current use of insulin E11.9 Active 294264204 Problem Barretts esophagus K22.70 Active 561243594 Problem Chronic fatigue R53.82 Active 61058692 Problem History of common bile duct surgery Z98.89 Active 077741202 Problem Bipolar affective disorder, currently depressed, moderate F31.32 Active 427632004 Problem Generalized anxiety disorder F41.1 Active 653562712 Problem Gastroesophageal reflux disease, esophagitis presence not specified K21.9 Active 763888410 Problem Coronary artery disease involving [place] coronary artery of [place] 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 I25.118 Active 3504155798676 Problem Postconcussion syndrome F07.81 Active 96688024 Problem Chronic pain syndrome G89.4 Active 047827307 Problem Type 2 diabetes mellitus with diabetic peripheral angiopathy without gangrene E11.51 Active 759537573 Problem Paroxysmal atrial fibrillation I48.0 Active 560232262 Problem Unspecified atherosclerosis of [place] arteries of extremities, unspecified extremity I70.209 Active 852788395606525 Problem Acute exacerbation of chronic obstructive pulmonary disease (COPD) J44.1 Active 022124584 Problem Crohn''s disease without complication, unspecified gastrointestinal tract location K50.90 Active 81103664 ALLERGIES Substance Reaction Event Type Date Status Penicillin V Potassium rash Drug Allergy Oct, Active Neosporin rash Drug Allergy Oct, Active Ibuprofen rash Drug Allergy Oct, Active Glipizide hives, nausea Drug Allergy Oct, Active ENCOUNTERS Encounter Location Date Diagnosis [facility] [address] [facility] [id number] [place] [address] Feb, [facility] [address] [facility] [id number] [address] Dec, [facility] [address] [address] Dec, [facility] [id number] [place] [address] 85476- 6107 Nov, [facility] [id number] [place] [address] 99491- 0806 Nov, Onychomycosis B35.1 ; Hammertoe of left foot M20.42 ; Hammertoe of right foot M20.41 and Type 2 diabetes mellitus with diabetic neuropathy, without long-term current use of insulin E11.40 [facility] [id number] [place] [address] 19597- 1378 Nov, [facility] [address] [address] 9[address] Nov, Bronchitis J40 [facility] [id number] [place] [address] 49199- 3650 Oct, [facility] [id number] [place] [address] 70818- 4535 Oct, Bipolar affective disorder, currently depressed, moderate F31.32 ; Vascular dementia without behavioral disturbance F01.50 and Generalized anxiety disorder F41.1 [facility] [address] [address] 6[address] Oct, [facility] [id number] [place] [address] 13075- 3611 Oct, [facility] [address] [address] 76[address] Oct, Edema of both legs R60.0 [facility] [address] [address] 7864 Oct, [facility] [address], [place] [address] 1186 Sep, [facility] [id number] [address] 27 Sep, 2017 [facility] [address] [address] 0[address] Sep, [facility] [address] [address] 6[address] 18 Sep, 2017 Encounter for well woman exam with routine gynecological exam Z01.419 ; Screening for STDs (sexually transmitted diseases) Z11.3 ; Screening breast examination Z12.31 and Overweight (BMI 25.0-29.9) E66.3 [facility] [address], [place] [address] 6230 11 Sep, 2017 [facility] [id number] [address] 4870 Sep, [facility] [address], [place] [address] 5[address] Sep, [facility] [address], [place] [address] 6[address] August, [facility] [address], [place] [address] 28[address] August, [facility] [address], [place] [address]26 August, Type 2 diabetes mellitus with diabetic neuropathy, without long-term current use of insulin E11.40 and Sprain of right ankle, unspecified ligament, initial encounter S93.401A [facility] [address], [place] [address] 0[address] August, [facility] [address], [place] [address] 3275 August, [facility] [address], [place] [address] 3799 August, [facility] [id number] [address] 33[address] August, Gastroesophageal reflux disease, esophagitis presence not specified K21.9 [facility] [id number] [place] [address] 29993- 7132 August, [facility] [id number] [place] [address] 79532- 8876 August, [facility] [id number] [place] [address] 95721- 5279 August, [facility] [id number] [place] [address] 72150- 2003 August, Type 2 diabetes mellitus with diabetic neuropathy, without long-term current use of insulin E11.40 and Elevated liver enzymes R74.8 [facility] [id number] [place] [address] 30504- 2584 Jul, [facility] [id number] [place] [address] 46141- 6017 Jul, Cough R05 [facility] [id number] [place] [address] 19765- 8809 Jul, [facility] [id number] [place] [address] 34727- 0393 Jul, [facility] [id number] [place] [address] 83280- 6884 Jul, Bipolar affective disorder, currently depressed, moderate F31.32 ; Vascular dementia without behavioral disturbance F01.50 and Generalized anxiety disorder F41.1 [facility] [id number] [place] [address] 90668- 3516 Jul, [facility] [id number] [place] [address] 04667- 6370 Jul, Type 2 diabetes mellitus with diabetic neuropathy, without long-term current use of insulin E11.40 and Elevated liver enzymes R74.8 [facility] [id number] [place] [address] 74514- 4833 Jul, [facility] [id number] [place] [address] 53944- 2825 Jul, [facility] [id number] [place] [address] 33013- 9926 Jul, [facility] [id number] [place] [address] 65273- 3325 Jul, Post-menopausal Z78.0 [facility] [id number] [place] [address] 92514- 1356 Jul, Stress incontinence of urine N39.3 [facility] [id number] [place] [address] 78030- 5914 Jul, [facility] [id number] [place] [address] 74293- 5944 Jul, [facility] [id number] [place] [address] 69762- 2522 Jul, Stress incontinence of urine N39.3 and Cough R05 [facility] [id number] [place] [address] 58036- 5216 Jul, [facility] [id number] [place] [address] 40018- 2653 Jul, [facility] [id number] [place] [address] 53424- 2401 Jul, [facility] [id number] [place] [address] 76977- 8150 Jul, Gastroesophageal reflux disease, esophagitis presence not specified K21.9 [facility] [id number] [place] [address] 67093- 3451 Jun, Diabetic polyneuropathy associated with type 2 diabetes mellitus E11.42 [facility] [id number] [place] [address] 96922- 9745 Jun, Diabetic polyneuropathy associated with type 2 diabetes mellitus E11.42 ; Coronary artery disease involving [place] coronary artery of [place] 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 I25.118 and Paroxysmal atrial fibrillation I48.0 [facility] [id number] [address]- 9115 Jun, [facility] [address], [place] [address]- 7364 Jun, [facility] [address], [place] [address]- 8173 Jun, Gastroenteritis K52.9 [facility] [id number] [place] [address] 29117- 0254 Jun, Gastroenteritis K52.9 [facility] [address], [place] [address]- 3711 Jun, [facility] [id number] [place] [address] 60562- 3495 Jun, [facility] [address], [place] [address]- 1600 Jun, Sprain of right ankle, unspecified ligament, initial encounter S93.401A ; Type 2 diabetes mellitus with diabetic neuropathy, without long-term current use of insulin E11.40 ; Atherosclerosis of [place] artery of both lower extremities with intermittent claudication I70.213 ; Atherosclerotic heart disease of [place]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 I25.118 ; Chronic atrial fibrillation I48.2 and Crohn''s disease without complication, unspecified gastrointestinal tract location K50.90 [facility] [address] [address] 17 Jun, 2017 Cough R05 and Chronic obstructive pulmonary disease with acute lower respiratory infection J44.0 [facility] [address], [place] [address]- 3544 16 Jun, 2017 [facility] [id number] [place] [address] 29570- 1729 15 Jun, 2017 Coughing R05 ; Unspecified atherosclerosis of [place] arteries of extremities, unspecified extremity I70.209 ; Type 2 diabetes mellitus with diabetic peripheral angiopathy without gangrene E11.51 ; Crohn''s disease without complication, unspecified gastrointestinal tract location K50.90 ; Other chronic pancreatitis K86.1 and Chronic atrial fibrillation I48.2 [facility] [address], [place] [address] Jun, [facility] [id number] [place] [address] 78588- 0474 Jun, Bipolar affective disorder, currently depressed, moderate F31.32 ; Vascular dementia without behavioral disturbance F01.50 and Generalized anxiety disorder F41.1 [facility] [id number] [place] [address] 58537- 1646 May, Generalized anxiety disorder F41.1 [facility] [id number] [place] [address] 81676- 1245 May, [facility] [id number] [place] [address] 42616- 9912 May, [facility] [id number] [place] [address] 28377- 0771 May, Coughing R05 [facility] [id number] [place] [address] 10765- 8285 May, [facility] [id number] [place] [address] 23602- 8858 May, Bipolar affective disorder, currently depressed, moderate F31.32 ; Vascular dementia without behavioral disturbance F01.50 and Generalized anxiety disorder F41.1 [facility] [id number] [place] [address] 52170- 5907 Apr, Generalized anxiety disorder F41.1 [facility] [address], [place] [address]- 1386 Apr, [facility] [id number] [place] [address] 61729- 8596 Apr, Vascular dementia without behavioral disturbance F01.50 ; Generalized anxiety disorder F41.1 and Bipolar affective disorder, currently depressed, moderate F31.32 [facility] [id number] [place] [address] 56207- 1516 Apr, Generalized anxiety disorder F41.1 [facility] [id number] [place] [address] 38934 -7422 Apr, Cough R05 and Acute exacerbation of chronic obstructive pulmonary disease (COPD) J44.1 [facility] [id number] [place] [address] 34582- 3694 Apr, [facility] [id number] [place] [address] 65850 -1368 Mar, Cough R05 and Cigarette nicotine dependence without complication F17.210 [place] [address] 28539- 6013 Mar, [facility] [id number] [place] [address] 79436- 2598 Feb, Generalized anxiety disorder F41.1 ; Major depressive disorder, recurrent episode, moderate F33.1 ; Vascular dementia without behavioral disturbance F01.50 and Unspecified psychosis F29 [place] [id number] [place] [address] 15894- 6732 Feb, [place] [address] 91015- 4837 Feb, [place] [id number] [place] [address] 10065- 5759 Feb, Generalized anxiety disorder F41.1 [place] [id number] [place] [address] 90305- 9750 14 Feb, 2017 Generalized anxiety disorder F41.1 [place] [id number] [place] [address] 04245- 9466 Feb, Dizziness R42 ; Chronic fatigue R53.82 ; Postconcussion syndrome F07.81 ; Fall, initial encounter W19.XXXA and Disorientation R41.0 [facility] [id number] [place] [address] 13615- 7744 Feb, Postconcussion syndrome F07.81 ; Injury of head, initial encounter S09.90XA ; Fall, initial encounter W19.XXXA ; Disorientation R41.0 and Acute cystitis with hematuria N30.01 [place] [address] 96974- 9661 Jan, Gastroesophageal reflux disease, esophagitis presence not specified K21.9 ; Post-menopausal Z78.0 and Migraine without aura and without status migrainosus, not intractable G43.009 [place] [address] 68034- 3520 Jan, [place] [address] 67807- 9816 Jan, Generalized anxiety disorder F41.1 ; Major depressive disorder, recurrent episode, moderate F33.1 ; Vascular dementia without behavioral disturbance F01.50 and Unspecified psychosis F29 [place] [address] 65503- 0502 Jan, Pneumonia of left lower lobe due to infectious organism J18.1 [place] [address] 21413- 1259 Jan, Migraine without aura and with status migrainosus, not intractable G43.001 [facility] [place] [id number] [place] [address] 33822 -4853 Jan, Migraine without aura and without status migrainosus, not intractable G43.009 [place] [address] 21523- 7299 Dec, Hematoma T14.8 [place] [address] 94998- 8131 Dec, [facility] [address] 92611 -1561 Nov, Fatigue, unspecified type R53.83 [place] [address] 02261- 6471 Nov, Scabies B86 and Coronary artery disease involving [place] coronary artery of [place] 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 I25.118 [facility] [address] [place] [address] 25758- 4945 Nov, [facility] [id number] [place] [address] 32178- 4560 Nov, [facility] [id number] [place] [address] 68627- 7388 Oct, [facility] [id number] [place] [address] 97816- 8558 Oct, Generalized anxiety disorder F41.1 and Major depressive disorder, recurrent episode, moderate F33.1 [facility] [id number] [place] [address] 29122- 6622 Oct, Cramp of both lower extremities R25.2 [place] [id number] [place] [address] 60660- 3036 Oct, Leg cramps R25.2 [facility] [id number] [place] [address] 20770- 5182 Oct, Chronic pain syndrome G89.4 [facility] [id number] [place] [address] 13535- 7070 Oct, [facility] [id number] [place] [address] 38085- 2133 Oct, [facility] [id number] [place] [address] 87323- 4134 Oct, Routine gynecological examination Z01.419 and Screening for breast cancer Z12.31 [facility] [id number] [place] [address] 54882- 8032 Sep, Diarrhea R19.7 [facility] [id number] [place] [address] 46950- 6017 Sep, Back pain M54.9 [facility] [id number] [place] [address] 84007- 3090 Sep, [facility] [id number] [place] [address] 63404- 2441 Sep, [facility] [id number] [place] [address] 03908 -0832 August, Xeroderma Q80.9 [facility] [id number] [place] [address] 85692- 1153 August, Dementia without behavioral disturbance, unspecified dementia type F03.90 [place] [address] 39507- 6299 August, Chronic pain syndrome G89.4 [place] [address] 80782- 4807 August, [place] [id number] [place] [address] 67136- 1488 August, Hyperlipidemia E78.5 ; Other fatigue R53.83 and Other specified hypotension I95.89 [facility] [id number] [place] [address] 75498 -2442 August, Dysuria R30.0 ; Other fatigue R53.83 and Other specified hypotension I95.89 [facility] [id number] [place] [address] 90263- 5621 August, [place] [id number] [place] [address] 66641- 3903 Jul, Pain in left knee M25.562 and Gastroenteritis K52.9 [place] [id number] [place] [address] 01195- 5646 Jul, [place] [id number] [place] [address] 97136- 6699 Jul, Diarrhea R19.7 [facility] [id number] [place] [address] 26281 -3761 Jul, Spider bite, accidental or unintentional, initial encounter T63.301A [facility] [id number] [place] [address] 01284- 2036 10 Jul, 2016 Primary osteoarthritis of right knee M17.11 and Arthritis M19.90 [place] [address] 00136- 5582 10 Jul, 2016 Generalized anxiety disorder F41.1 and Major depressive disorder, recurrent episode, moderate F33.1 [place] [address] 35708- 6127 07 Jul, 2016 Type 2 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 and Temporal headache R51 [place] [address] 98744- 8411 Jul, Back pain M54.9 [place] [address] 49525- 9282 Jul, [place] [address] 18073- 6305 Jul, [place] [address] 07254- 8682 30 Jun, 2016 Nausea R11.0 [facility] [place] [address] 39221 -9243 23 Jun, 2016 Acute suppurative otitis media of both ears without spontaneous rupture of tympanic membranes, recurrence not specified H66.003 and COPD exacerbation J44.1 [place] [id number] [place] [address] 77156- 8617 Jun, Generalized anxiety disorder F41.1 [place] [address] 57745- 9423 16 Jun, 2016 [facility] [address] 10758 -1653 13 Jun, 2016 [facility] [id number] [place] [address] 04480 -2106 Jun, Shortness of breath R06.02 and COPD exacerbation J44.1 [place] [id number] [place] [address] 10432- 6273 10 Jun, 2016 Eczema, unspecified type L30.9 [place] [id number] [place] [address] 27177- 6675 09 Jun, 2016 [place] [address] 62442- 1384 May, [place] [address] 36805- 5677 May, Muscle cramping R25.2 [place] [address] 16020- 7813 May, [place] [address] 10444- 5480 Apr, Diarrhea R19.7 [place] [address] 57534- 2570 Apr, [place] [address] 73388- 6539 Apr, Chronic pain syndrome G89.4 [place] [address] [place] [id number] [place] [address] 68790- 7855 Apr, Cramp of both lower extremities R25.2 and Vascular dementia without behavioral disturbance F01.50 [place] [address] [place] [id number] [place] [address] 47262- 5153 Apr, Type 2 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 and Cigarette nicotine dependence without complication F17.210 [place] [address] [place] [id number] [place] [address] 35381- 2356 Mar, Generalized anxiety disorder F41.1 [place] [address] [place] [id number] [place] [address] 88045- 2173 Feb, Generalized anxiety disorder F41.1 and Major depressive disorder, recurrent episode, moderate F33.1 [place] [address] [place] [address]- 3164 Feb, [facility] [id number] [place] [address] 05764 -2758 Feb, Dysuria R30.0 and Acute cystitis with hematuria N30.01 [place] [address] 94266- 4468 Jan, [place] [address] 04950- 9030 Jan, [place] [address] 16210- 2416 Jan, [place] [address] 22026- 5181 Jan, [facility] [address] 15009 -8286 Jan, Wasp sting, accidental or unintentional, initial encounter T63.461A [place] [address] 22542- 0959 Jan, Encounter for immunization Z23 [place] [address] 89869- 6044 Jan, [place] [address] [place] [id number] [place] [address] 85902- 1503 Jan, [place] [address] 70036- 7099 Dec, Generalized anxiety disorder F41.1 and Major depressive disorder, recurrent episode, moderate F33.1 [place] [address] [place] [address] [id number] [place] [address] 27359- 4950 Dec, Routine gynecological examination Z01.419 ; Postmenopausal Z78.0 ; Screening breast examination Z12.39 ; Osteopenia M85.80 and Breast cancer screening Z12.39 [place] [address] [id number] [place] [address] 55965- 3812 Dec, [place] [address] [facility] [id number] [place] [address]- 2646 19 Dec, 2015 [facility] [address] [facility] [id number] [place] [address]- 8038 16 Dec, 2015 [facility] [address] [facility] [id number] [place] [address]- 4424 16 Dec, 2015 [facility] [address] [facility] [id number] [place] [address]- 1868 14 Dec, 2015 [facility] [address] [facility] [id number] [place] [address]- 8696 06 Dec, 2015 [facility] [address] [facility] [id number] [place] [address]- 8483 30 Nov, 2015 [facility] [address] [id number] [place] [address] -6196 Nov, Cough R05 ; Other viral agents as the cause of diseases classified elsewhere B97.89 and Acute upper respiratory infection, unspecified J06.9 [facility] [id number] [place] [address]- 1287 Nov, [facility] [id number] [place] [address]- 0395 Nov, [facility] [address] [id number] [place] [address]- 6060 Nov, [facility] [address] [id number] [place] [address]- 2847 Nov, [facility] [address] [facility] [id number] [place] [address]- 2655 Nov, [facility] [address] [id number] [place] [address]- 6392 Oct, [facility] [address] [facility] [id number] [place] [address]- 1239 18 Oct, 2015 [facility] [id number] [place] [address]- 8574 14 Oct, 2015 [facility] [id number] [place] [address] 16872- 6510 Oct, Chronic pain syndrome G89.4 [place] [address] [place] [id number] [place] [address] 11669- 3268 29 Sep, 2015 Generalized anxiety disorder F41.1 and Major depressive disorder, recurrent episode, moderate F33.1 [place] [address] [place] [id number] [place] [address] 74926- 9303 Sep, [place] [address] [place] [id number] [place] [address] 87359- 8771 Sep, [place] [address] [place] [id number] [place] [address] 46287- 7403 14 Sep, 2015 Generalized anxiety disorder F41.1 [place] [address] [place] [id number] [place] [address] 27795- 0634 13 Sep, 2015 Cramp of both lower extremities R25.2 and Cervicalgia M54.2 [place] [address] [place] [id number] [place] [address] 30796- 6576 Sep, Generalized anxiety disorder F41.1 [place] [address] [place] [id number] [place] [address] 09791- 0450 Sep, [facility] [id number] [place] [address] 58654 -6951 August, Rash R21 ; Itching L29.9 and Allergic response, subsequent encounter T78.40XD [place] [address] [place] [id number] [place] [address] 91093- 3714 August, Primary insomnia F51.01 [facility] [id number] [place] [address] 08387 -3096 August, Rash R21 ; Itching L29.9 and Allergic response, initial encounter T78.40XA [place] [address] [id number] [place] [address] 74659- 7822 August, [facility] [address], [place] [address]- 6911 August, Cramp of both lower extremities R25.2 [facility] [address], [place] [address]- 3702 August, Back pain M54.9 [facility] [address], [place] [address]- 5189 August, [facility] [id number] [place] [address] 62249- 4267 August, [facility] [id number] [place] [address] 31167 -8343 August, Cramp of both lower extremities R25.2 [facility] [id number] [place] [address] 55908- 7111 August, [facility] [id number] [place] [address] 14861- 0152 August, Syncope R55 ; Paroxysmal atrial fibrillation I48.0 ; Dementia without behavioral disturbance, unspecified dementia type F03.90 and Chronic pain syndrome G89.4 [facility] [id number] [place] [address] 62140- 3011 August, Type 2 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 and Syncope R55 [facility] [address], [place] [address]- 6295 Jul, [facility] [address], [place] [address]- 9517 Jul, [facility] [address], [place] [address]- 5629 Jul, [facility] [address], [place] [address]- 3184 Jul, [facility] [address], [place] [address]- 2331 Jul, [facility] [address], [place] [address]- 6743 19 Jul, 2015 UTI (urinary tract infection) N39.0 [facility] [address], [place] [address]- 8649 18 Jul, 2015 [facility] [address], [place] [address]- 0602 18 Jul, 2015 Major depressive disorder, recurrent episode, moderate F33.1 and Generalized anxiety disorder F41.1 [facility] [address], [place] [address]- 6735 14 Jul, 2015 Generalized anxiety disorder F41.1 [facility] [id number] [place] [address] 54711- 0261 14 Jul, 2015 Diarrhea R19.7 [facility] [address], [place] [address]- 7657 14 Jul, 2015 [facility] [id number] [place] [address] 42852- 3656 Jun, [facility] [id number] [place] [address] 99816- 2943 Jun, Eczema L30.9 [facility] [address], [place] [address]- 4644 Jun, [facility] [address], [place] [address]- 7236 Jun, COPD (chronic obstructive pulmonary disease) J44.9 [facility] [address], [place] [address]- 0854 16 Jun, 2015 [facility] [address], [place] [address]- 2182 02 Jun, 2015 Major depressive disorder, recurrent episode, moderate F33.1 and Generalized anxiety disorder F41.1 [facility] [address], [place] [address]- 0511 May, [facility] [id number] [address]- 6686 May, UTI (urinary tract infection) N39.0 [facility] [address], [place] [address]- 2614 May, [facility] [address], [place] [address]- 6484 May, [facility] [address], [place] [address]- 3560 May, [facility] [address], [place] [address]- 9737 May, [facility] [address], [place] [address]- 2572 Apr, Major depressive disorder, recurrent episode, moderate F33.1 and Generalized anxiety disorder F41.1 [facility] [address], [place] [address]- 2276 Apr, COPD (chronic obstructive pulmonary disease) J44.9 [facility] [address], [place] [address]- 1608 Apr, [facility] [address], [place] [address]- 0335 Apr, Atrial flutter I48.92 [facility] [address], [place] [address]- 9127 Apr, [facility] [address], [place] [address]- 2797 Apr, [facility] [address], [place] [address]- 8505 Mar, [facility] [address] 5649 Mar, [facility] [id number] [address]- 6679 Mar, [facility] [id number] [place] [address] 42923- 7660 17 Mar, 2015 Hyperlipidemia E78.5 ; Type 2 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 ; Major depressive disorder, recurrent episode, moderate F33.1 and Chronic pain syndrome G89.4 [facility] [id number] [place] [address] 11753- 6096 16 Mar, 2015 [facility] [address] 54041- 3661 Mar, [facility] [id number] [place] [address] 82523- 4998 Mar, [facility] [address] 65588- 5747 Mar, [facility] [id number] [place] [address] 88306- 2717 Feb, COPD (chronic obstructive pulmonary disease) J44.9 and Back pain M54.9 [facility] [id number] [place] [address] 01011- 4404 Feb, [facility] [id number] [place] [address] 21301- 9547 Feb, [facility] [id number] [place] [address] 50144- 7675 Feb, [facility] [id number] [place] [address] 96729- 0780 Feb, [facility] [id number] [place] [address] 07897- 4763 Feb, [facility] [id number] [place] [address] 88261- 7048 Feb, [facility] [id number] [place] [address] 91582- 6942 Feb, [facility] [id number] [place] [address] 42018- 9394 Feb, [facility] [address], [place] [address]- 1001 Feb, Diabetes E11.9 ; Back pain M54.9 and COPD (chronic obstructive pulmonary disease) J44.9 [facility] [id number] [address]- 3843 Jan, [facility] [id number] [place] [address] 03877- 8774 Jan, Major depression, recurrent F33.9 and Generalized anxiety disorder F41.1 [facility] [id number] [place] [address] 41774- 0502 Jan, Chronic pain G89.29 [facility] [address] [id number] [place] [address] 37063- 4690 Jan, [facility] [id number] [place] [address] 55482- 6244 Jan, [facility] [id number] [place] [address] 97341- 2640 Jan, [facility] [id number] [place] [address] 30239- 4899 Jan, [facility] [id number] [place] [address] 48304- 5697 Jan, Nicotine dependence F17.200 [facility] [id number] [place] [address] 72874- 8086 Jan, Nicotine dependence F17.200 and Back pain M54.9 [facility] [id number] [place] [address] 86941- 3902 Jan, [facility] [id number] [place] [address] 63297- 4589 Dec, [facility] [id number] [place] [address] 08784- 3548 Dec, Anxiety, generalized 300.02 and Major depression, recurrent 296.30 [facility] [id number] [address]- 5629 24 Dec, 2014 [facility] [address], [place] [address] 2546 21 Dec, 2014 [facility] [address], [place] [address] 2546 17 Dec, 2014 [facility] [id number] [place] [address] 48359- 7801 15 Dec, 2014 [facility] [id number] [place] [address] 52714 2549 14 Dec, 2014 [facility] [id number] [place] [address] 64079- 5322 11 Dec, 2014 [facility] [id number] [place] [address] 70510- 0533 10 Dec, 2014 [facility] [id number] [place] [address] 79314- 4980 08 Dec, 2014 Skin tear 879.8 [facility] [address], [place] [address]- 7874 08 Dec, 2014 Routine gynecological examination V72.31 ; Breast cancer screening V76.10 and Family history of breast cancer in first degree relative V16.3 [facility] [address], [place] [address]- 0370 03 Dec, 2014 [facility] [address], [place] [address]- 254 02 Dec, 2014 [facility] [address], [place] [address]- 254 Nov, [facility] [id number] [place] [address] 83792- 0932 Nov, [facility] [address], [place] [address]- 6239 Nov, Poor balance 781.99 and Vascular dementia, uncomplicated 290.40 [facility] [id number] [address]- 1086 Nov, [facility] [id number] [place] [address] 44727- 3707 Nov, Major depression, recurrent 296.30 and Anxiety, generalized 300.02 [facility] [id number] [place] [address] 06421- 6902 Nov, [facility] [id number] [place] [address] 50678- 6642 Nov, [facility] [id number] [place] [address] 42793- 0465 Nov, [facility] [id number] [place] [address] 58575- 0438 Nov, [facility] [id number] [place] [address] 13937- 2823 Nov, Vascular dementia, uncomplicated 290.40 and Lumbago 724.2 [facility] [id number] [place] [address] 29646- 4649 Nov, [facility] [id number] [place] [address] 23144- 3026 Nov, [facility] [id number] [place] [address] 60208- 7854 Nov, [facility] [id number] [place] [address] 86419- 3154 Oct, [facility] [id number] [place] [address] 74762- 5246 Oct, [facility] [id number] [place] [address] 72227- 0228 Oct, [facility] [id number] [place] [address] 05955- 2887 Oct, COPD (chronic obstructive pulmonary disease) 496 and Hyperlipidemia 272.4 [facility] [id number] [place] [address] 47543- 2503 Oct, Major depression, recurrent 296.30 and Anxiety, generalized 300.02 [facility] [id number] [place] [address] 09469- 7154 Oct, [facility] [id number] [place] [address] 08696- 0714 Oct, [facility] [id number] [place] [address] 74602- 6449 Oct, [facility] [id number] [place] [address] 90758- 4163 Sep, Lumbago 724.2 and Anxiety state, unspecified 300.00 [facility] [id number] [place] [address] 53599- 0737 Sep, [facility] [id number] [place] [address] 10628- 5844 Sep, [facility] [id number] [place] [address] 83064- 3695 August, [facility] [id number] [place] [address] 61859- 1562 August, Major depression, recurrent 296.30 ; Anxiety, generalized 300.02 and No condition on Winona II V71.09 [facility] [address], [place] [address]- 7892 August, [facility] [id number] [place] [address] 38932- 3842 August, [facility] [address], [place] [address]- 3865 Jul, [facility] [id number] [place] [address] 88776- 6284 Jul, [facility] [address], [place] [address]- 9068 Jul, [facility] [id number] [place] [address] 02188- 2546 30 Jun, 2014 [facility] [place] [facility] [address] [id number] [place] [address]- 6533 30 Jun, 2014 [facility] [place] [facility] [address] [id number] [place] [address]- 8464 27 Jun, 2014 [facility] [place] [facility] [address] [id number] [place] [address]- 5191 Jun, [facility] [place] [facility] [address] [id number] [place] [address]- 3283 Jun, [facility] [place] [facility] [address] [id number] [place] [address]- 3940 Jun, [facility] [place] [facility] [address] [id number] [place] [address]- 2454 Jun, [facility] [place] [facility] [address] [id number] [place] [address]- 6928 17 Jun, 2014 [facility] [place] [facility] [address] [id number] [place] [address]- 1012 Jun, [facility] [place] [facility] [address] [id number] [place] [address]- 5738 Jun, [facility] [place] [facility] [address] [id number] [place] [address]- 7980 10 Jun, 2014 [facility] [place] [facility] [address] [id number] [place] [address]- 7693 Jun, [facility] [place] [facility] [address] [id number] [place] [address]- 9289 Jun, [facility] [place] [facility] [address] [id number] [place] [address]- 0025 Jun, [facility] [place] [facility] [address] [id number] [place] [address]- 1477 Jun, [facility] [place] [facility] [address] [id number] [place] [address]- 1021 Jun, 2014 [facility] [place] [facility] [address] [id number] [place] [address] May, 2014 [facility] [place] [facility] [address] [id number] [place] [address] May, 2014 [facility] [place] [facility] [address] [id number] [place] [address] May, 2014 [facility] [place] [facility] [address] [id number] [place] [address] May, 2014 [facility] [place] [facility] [address] [id number] [place] [address] May, 2014 [facility] [place] [facility] [address] [id number] [place] [address] May, 2014 [facility] [place] [facility] [address] [facility] [id number] [place] [address] May, 2014 [facility] [place] [facility] [address] [facility] [id number] [place] [address] May, 2014 [facility] [place] [facility] [address] [facility] [id number] [place] [address] May, 2014 [facility] [place] [facility] [address] [facility] [id number] [place] [address] May, 2014 [facility] [place] [facility] [address] [facility] [id number] [place] [address] May, 2014 [facility] [place] [facility] [address] [facility] [id number], [place] [address] May, 2014 [facility] [place] [facility] [address] [facility] [id number] [place] [address] May, 2014 [facility] [place] [facility] [address] [id number] [place] [address] May, 2014 [facility] [place] [facility] [address] [facility] [id number] [place] [address] Apr, [facility] [place] [facility] [address] [facility] [id number] [place] [address] Apr, [facility] [place] [facility] [address] [id number] [place] [address] Apr, [facility] [place] [facility] [address] [id number] [place] [address] Apr, [facility] [place] [facility] [address] [id number] [place] [address] Apr, [facility] [place] [facility] [address] [id number] [place] [address] Apr, [facility] [place] [facility] [address] [id number] [place] [address] Apr, [facility] [place] [facility] [address] [id number] [place] [address] Apr, [facility] [place] [facility] [address] [id number] [place] [address] Apr, [facility] [place] [facility] [address] [id number] [place] [address] Apr, [facility] [place] [facility] [address] [id number] [place] [address] Apr, [facility] [place] [facility] [address] [id number] [place] [address] Apr, [facility] [place] [facility] [address] [id number] [place] [address] Mar, [facility] [place] [facility] [address] [id number] [place] [address] Mar, [facility] [place] [facility] [address] [id number] [place] [address] Mar, [facility] [place] [facility] [address] [id number] [place] [address] Mar, [facility] [place] [facility] [address] [id number] [place] [address] Mar, [facility] [place] [facility] [address] [id number] [place] [address] 29 Mar, 2014 [facility] [place] [facility] [address] [id number] [place] [address] Mar, [facility] [place] [facility] [address] [id number] [place] [address] Mar, [facility] [place] [facility] [address] [id number] [place] [address] 15 Mar, 2014 [facility] [place] [facility] [address] [id number] [place] [address] 15 Mar, 2014 [facility] [place] [facility] [address] [id number] [place] [address] 27[address] Mar, [facility] [place] [facility] [address] [id number] [place] [address] 7283 Mar, [facility] [place] [facility] [address] [id number] [place] [address] 2794 Mar, [facility] [place] [facility] [address] [id number] [place] [address] 4362 Mar, [facility] [place] [facility] [address] [id number] [place] [address] 2487 Mar, [facility] [place] [facility] [address] [id number] [place] [address]- 3698 Mar, [facility] [place] [facility] [address] [id number] [place] [address] 9759 Mar, [facility] [place] [facility] [address] [id number] [place] [address]- 7884 Mar, [facility] [place] [facility] [address] [id number] [place] [address]- 3549 Mar, [facility] [place] [facility] [address] [id number] [place] [address] 4225 Mar, [facility] [place] [facility] [address] [id number] [place] [address]- 2538 Feb, [facility] [place] [facility] [address] [id number] [place] [address] 2605 Feb, [facility] [place] [facility] [address] [id number] [place] [address]- 6321 Feb, [facility] [place] [facility] [address] [id number] [place] [address]- 4885 Feb, [facility] [place] [facility] [address] [id number] [place] [address]- 1056 Feb, [facility] [place] [facility] [address] [id number] [place] [address]- 5072 Feb, [facility] [place] [facility] [address] [id number] [place] [address]- 3781 Feb, [facility] [place] [facility] [address] [id number] [place] [address]- 7599 Feb, [facility] [place] [facility] [address] [id number] [place] [address]- 6899 Feb, [facility] [place] [facility] [address] [id number] [place] [address]- 7508 Feb, [facility] [place] [facility] [address] [id number] [place] [address]- 7493 Feb, [facility] [place] [facility] [address] [id number], [place] [address]- 5945 Feb, [facility] [place] [facility] [address] [id number], [place] [address]- 2270 Feb, [facility] [place] [facility] [address] [id number] [place] [address]- 9731 Feb, [facility] [place] [facility] [address] [id number], [place] [address]- 7061 Feb, [facility] [place] [facility] [address] [id number], [place] [address]- 8086 Feb, [facility] [place] [facility] [address] [id number] [place] [address]- 4680 Feb, [facility] [place] [facility] [address] [id number] [place] [address]- 5078 Jan, [facility] [place] [facility] [address] [id number] [place] [address]- 6820 Jan, [facility] [place] [facility] [address] [id number] [place] [address]- 3456 Jan, [facility] [place] [facility] [address] [id number] [place] [address]- 6312 Jan, [facility] [place] [facility] [address] [id number] [place] [address]- 4581 Jan, [facility] [place] [facility] [address] [id number] [place] [address]- 1137 Jan, [facility] [place] [facility] [address] [id number] [place] [address]- 3644 Jan, [facility] [place] [facility] [address] [id number] [place] [address]- 0561 Jan, [facility] [place] [facility] [address] [id number] [place] [address]- 1256 Jan, [facility] [place] [facility] [address] [id number] [place] [address]- 0917 Jan, [facility] [place] [facility] [address] [id number] [place] [address]- 4888 Jan, [facility] [place] [facility] [address] [id number] [place] [address]- 1891 Dec, [facility] [place] [facility] [address] [id number] [place] [address]90 Dec, [facility] [place] [facility] [address] [id number] [place] [address]- 5703 Nov, [facility] [place] [facility] [address] [id number] [place] [address]- 0561 Nov, [facility] [place] [facility] [address] [id number] [place] [address]- 4641 Nov, [facility] [place] [facility] [address] [id number] [place] [address]- 4739 Nov, [facility] [place] [facility] [address] [id number] [place] Nov, [facility] [place] [facility] [address] [id number] [place] [address]- 6688 Nov, [facility] [place] [facility] [address] [id number] [place] [address]- 0918 Nov, [facility] [place] [facility] [address] [id number] [place] [address]- 1323 Oct, [facility] [place] [facility] [address] [id number] [place] [address]- 4673 Oct, [facility] [place] [facility] [address] [id number] [place] [address]- 6336 Oct, [facility] [place] [facility] [address] [id number] [place] [address]- 4384 Oct, [facility] [place] [facility] [address] [id number] [place] [address]- 1052 Sep, [facility] [place] [facility] [address] [id number] [place] [address]- 8077 Sep, [facility] [place] [facility] [address] [id number] [place] [address]- 3963 Sep, [facility] [place] [facility] [address] [id number] [place] [address]- 2916 Sep, [facility] [place] [facility] [address] [id number] [place] [address]- 9345 Sep, [facility] [place] [facility] [address] [id number] [place] [address]- 3336 Sep, [facility] [place] [facility] [address] [id number] [place] [address]- 3421 Sep, [facility] [place] [facility] [address] [id number] [place] [address]- 5554 Sep, [facility] [place] [facility] [address] [id number] [place] [address]- 5164 Sep, [facility] [place] [facility] [address] [id number] [place] [address]- 0420 Sep, [facility] [place] [facility] [address] [id number] [place] [address]- 6716 Sep, [facility] [place] [facility] [address] [id number] [place] [address]- 8797 Sep, [facility] [place] [facility] [address] [id number] [place] [address]- 1566 Sep, [facility] [place] [facility] [address] [id number] [place] [address]- 0358 Sep, [facility] [place] [facility] [address] [id number] [place] [address]- 0101 August, [facility] [place] [facility] [address] [id number] [place] [address]- 1309 August, [facility] [place] [facility] [address] [id number] [place] [address]- 4900 August, [facility] [place] [facility] [address] [id number] [place] [address]- 6165 August, [facility] [place] [facility] [address] [id number] [place] [address]- 0013 August, [facility] [place] [facility] [address] [id number] [place] [address]- 2497 August, [facility] [place] [facility] [address] [id number] [place] [address]- 8219 August, [facility] [place] [facility] [address] [id number] [place] [address]- 7781 August, [facility] [place] [facility] [address] [id number] [place] [address]- 6196 August, [facility] [address] [id number] [place] [address]- 4038 August, [facility] [place] [facility] [address] [id number] [place] [address]- 2526 August, [facility] [address] [id number] [place] [address]- 3206 August, [facility] [address] [id number] [place] [address]- 4202 August, [facility] [address] [id number] [place] [address]- 9684 August, [facility] [address] [id number] [place] [address]- 2466 August, [facility] [address] [id number] [place] [address]- 8229 August, [facility] [address] [id number] [place] [address]- 0360 August, [facility] [address] [id number] [place] [address]- 5437 August, [facility] [address] [id number] [place] [address]- 1847 August, [facility] [place] [facility] [address] [id number] [place] [address]- 6626 Jul, [facility] [place] [facility] [address] [id number] [place] [address]- 6151 Jul, [facility] [place] [facility] [address] [id number] [place] [address]- 5845 Jul, [facility] [place] [facility] [address] [id number] [place] [address]- 6606 Jul, [facility] [place] [facility] [address] [id number] [place] [address]- 2946 Jun, [facility] [place] [facility] [address] [id number] [place] [address]- 6034 27 Jun, 2013 [facility] [place] [facility] [address] [id number] [place] [address]- 1811 Jun, [facility] [place] [facility] [address] [id number] [place] [address]- 5230 24 Jun, 2013 [facility] [place] [facility] [address] [id number] [place] [address]- 5347 Jun, [facility] [place] [facility] [address] [id number] [place] [address]- 7271 Jun, [facility] [place] [facility] [address] [id number] [place] [address]- 0795 Jun, [facility] [place] [facility] [address] [id number] [place] [address]- 4833 Jun, [facility] [place] [facility] [address] [id number] [place] [address]- 6508 Jun, [facility] [place] [facility] [address] [id number] [place] [address]- 2741 Jun, [facility] [place] [facility] [address] [id number] [place] [address]- 8017 May, [facility] [place] [facility] [address] [id number] [place] [address]- 2273 May, [facility] [place] [facility] [address] [id number] [place] [address]- 5079 May, [facility] [place] [facility] [address] [id number] [place] [address]- 6421 May, [facility] [place] [facility] [address] [id number] [place] [address]- 8050 May, [facility] [place] [facility] [address] [id number] [place] [address]- 7954 May, [facility] [place] [facility] [address] [id number] [place] [address]- 0923 20 May, 2013 [facility] [place] [facility] [address] [id number] [place] [address]- 5216 May, [facility] [place] [facility] [address] [id number] [place] [address]- 8506 May, [facility] [place] [facility] [address] [id number] [place] [address]- 0327 May, [facility] [place] [facility] [address] [id number] [place] [address]- 4145 May, [facility] [place] [facility] [address] [id number] [place] [address]- 5246 May, [facility] [place] [facility] [address] [facility] [id number] [place] [address]- 7867 May, [facility] [place] [facility] [address] [facility] [id number] [place] [address]- 1930 May, [facility] [place] [facility] [address] [facility] [id number] [place] [address]- 7414 May, [facility] [place] [facility] [address] [facility] [id number] [place] [address]- 6151 May, [facility] [place] [facility] [address] [facility] [id number] [place] [address]- 6290 May, [facility] [place] [facility] [address] [facility] [id number], [place] [address]- 7957 Apr, [facility] [place] [facility] [address] [id number] [place] [address]- 1826 Apr, [facility] [place] [facility] [address] [id number] [place] [address]- 6770 Apr, [facility] [place] [facility] [address] [facility] [id number], [place] [address]- 9304 Apr, [facility] [place] [facility] [address] [id number], [place] [address]- 1031 Apr, [facility] [address] [id number] [place] [address]- 5278 Apr, [facility] [place] [facility] [address] [id number] [place] [address]- 7975 Apr, [facility] [address] [id number] [place] [address]- 3906 Mar, [facility] [place] [facility] [address] [id number] [place] [address]- 5852 Mar, [facility] [address] [id number] [place] [address]- 2061 Mar, [facility] [place] [facility] [address] [id number] [place] [address]- 8926 Mar, [facility] [address] [id number] [place] [address]- 8883 Mar, [facility] [place] [facility] [address] [id number] [place] [address]- 9491 Mar, [facility] [address] [id number] [place] [address]- 4406 Mar, [facility] [place] [facility] [address] [facility] [id number] [place] [address]- 6443 Mar, [facility] [place] [facility] [address] [id number] [place] [address]- 5534 Mar, [facility] [place] [facility] [address] [id number] [place] [address]- 5787 Mar, [facility] [place] [facility] [address] [id number] [place] [address]- 0295 Mar, [facility] [place] [facility] [address] [id number] [place] [address]- 9830 Feb, [facility] [place] [facility] [address] [facility] [id number] [place] [address]- 9021 Feb, [facility] [place] [facility] [address] [id number] [place] [address]- 3671 20 Feb, 2013 [facility] [place] [facility] [address] [id number] [place] [address]- 0542 20 Feb, 2013 [facility] [place] [facility] [address] [id number] [place] [address]- 3158 19 Feb, 2013 [facility] [place] [facility] [address] [id number] [place] [address]- 0679 19 Feb, 2013 [facility] [place] [facility] [address] [id number] [place] [address]- 7625 15 Feb, 2013 [facility] [place] [facility] [address] [id number] [place] [address]- 0932 14 Feb, 2013 [facility] [place] [facility] [address] [id number] [place] [address]- 1540 14 Feb, 2013 [facility] [place] [facility] [address] [id number] [place] [address]- 3623 Feb, [facility] [place] [facility] [address] [id number] [place] [address]- 3695 13 Feb, 2013 [facility] [place] [facility] [address] [id number] [place] [address]- 6546 Feb, [facility] [place] [facility] [address] [facility] [id number] [place] [address]- 0488 12 Feb, 2013 [facility] [place] [facility] [address] [id number] [place] [address]- 9496 Feb, [facility] [place] [facility] [address] [id number] [place] [address]- 9163 05 Feb, 2013 [facility] [place] [facility] [address] [id number] [place] [address]- 1334 05 Feb, 2013 [facility] [place] [facility] [address] [id number] [place] [address]- 1225 Jan, [facility] [place] [facility] [address] [id number] [place] [address]- 0511 Jan, [facility] [place] [facility] [address] [id number] [place] [address]- 2205 Jan, [facility] [place] [facility] [address] [id number] [place] [address]- 4952 Jan, [facility] [place] [facility] [address] [id number] [place] [address]- 9378 Jan, [facility] [place] [facility] [address] [id number] [place] [address]- 1913 Jan, [facility] [place] [facility] [address] [id number] [place] [address]- 2338 Jan, [facility] [place] [facility] [address] [id number] [place] [address]- 9556 Jan, [facility] [place] [facility] [address] [id number] [place] [address]- 4942 Jan, [facility] [place] [facility] [address] [id number] [place] [address]- 6595 27 Dec, 2012 [facility] [place] [facility] [address] [id number] [place] [address]- 7296 20 Dec, 2012 [facility] [place] [facility] [address] [id number] [place] [address]- 9359 19 Dec, 2012 [facility] [place] [facility] [address] [id number], [place] [address]- 2417 10 Dec, 2012 [facility] [place] [facility] [address] [id number], [place] [address]- 0744 04 Dec, 2012 [facility] [place] [facility] [address] [id number] [place] [address]- 4657 03 Dec, 2012 [facility] [place] [facility] [address] [id number], [place] [address]- 8976 Nov, [facility] [place] [facility] [address] [id number] [place] [address]- 5873 Nov, [facility] [place] [facility] [address] [id number] [place] [address]- 8821 Nov, [facility] [place] [facility] [address] [id number] [place] [address]- 9348 Nov, [facility] [place] [facility] [address] [id number] [place] [address]- 6354 Nov, [facility] [place] [facility] [address] [id number] [place] [address]- 3486 Nov, [facility] [place] [facility] [address] [id number] [place] [address]- 9118 Nov, [facility] [place] [facility] [address] [id number] [place] [address]- 1823 Nov, [facility] [place] [facility] [address] [id number] [place] [address]- 1973 Nov, [facility] [place] [facility] [address] [id number] [place] [address]- 7130 Nov, [facility] [place] [facility] [address] [id number] [place] [address]- 5551 Oct, [facility] [place] [facility] [address] [id number] [place] [address]- 9650 Oct, [facility] [place] [facility] [address] [id number] [place] [address]- 8121 Oct, [facility] [place] [facility] [address] [id number] [place] [address]- 2035 Oct, [facility] [place] [facility] [address] [id number] [place] [address]- 5872 Oct, [facility] [place] [facility] [address] [id number] [place] [address]- 6709 Oct, [facility] [place] [facility] [address] [id number] [place] [address]- 5080 Oct, [facility] [place] [facility] [address] [id number] [place] [address]- 0602 Oct, [facility] [place] [facility] [address] [id number] [place] [address]- 8042 Sep, [facility] [place] [facility] [address] [id number] [place] [address]- 1281 Sep, [facility] [place] [facility] [address] [id number] [place] [address]- 3470 Sep, [facility] [place] [facility] [address] [id number] [place] [address]- 8353 Sep, [facility] [address] [id number] [place] [address]- 8734 Sep, [facility] [place] [facility] [address] [id number] [place] [address]- 9120 Sep, [facility] [address] [id number] [place] [address]- 3768 Sep, [facility] [place] [facility] [address] [id number] [place] [address]- 6449 Sep, [facility] [place] [facility] [address] [id number] [place] [address]- 1173 August, [facility] [place] [facility] [address] [id number] [place] [address]- 8952 August, [facility] [place] [facility] [address] [id number] [place] [address]- 7025 August, [facility] [place] [facility] [address] [id number] [place] [address] August, [facility] [place] [facility] [address] [id number] [place] [address] August, [facility] [place] [facility] [address] [id number] [place] [address] Jul, [facility] [place] [facility] [address] [id number] [place] [address] Jul, [facility] [place] [facility] [address] [id number] [place] [address] Jul, [facility] [place] [facility] [address] [id number] [place] [address] Jul, [facility] [place] [facility] [address] [id number] [place] [address] Jul, [facility] [place] [facility] [address] [facility] [id number] [place] [address] Jun, [facility] [place] [facility] [address] [id number] [place] [address] Jun, [facility] [place] [facility] [address] [id number] [place] [address] 15 Jun, 2012 [facility] [place] [facility] [address] [facility] [id number] [place] [address] 14 Jun, 2012 [facility] [place] [facility] [address] [facility] [id number] [place] [address] Jun, [facility] [place] [facility] [address] [id number] [place] [address] Jun, [facility] [place] [facility] [address] [id number] [place] [address] Jun, [facility] [place] [facility] [address] [facility] [id number] [place] [address] Jun, [facility] [place] [facility] [address] [facility] [id number] [place] [address] Jun, [facility] [place] [facility] [address] [id number] [place] [address] May, [facility] [place] [facility] [address] [id number] [place] [address] May, [facility] [place] [facility] [address] [id number] [place] [address] May, [facility] [place] [facility] [address] [facility] [id number] [place] [address] May, [facility] [place] [facility] [address] [id number] [place] [address] 15 Apr, 2012 [facility] [address] [id number] [place] [address] Apr, [facility] [address] [id number] [place] [address] Apr, [facility] [address] [id number] [place] [address] Apr, [facility] [address] [id number] [place] [address] Apr, [facility] [address] [id number] [place] [address] Apr, [facility] [address] [id number] [place] [address] Apr, [facility] [address] [id number] [place] [address] Mar, [facility] [address] [place] [id number] Mar, [facility] [address] [id number] [place] [address] Mar, [facility] [address] [id number] [place] [address] Mar, [facility] [address] [id number] [place] [address] Mar, [facility] [address] [id number] [place] [address] Mar, [facility] [address] [id number] [place] [address] Mar, [facility] [address] [id number] [place] [address] Mar, [facility] [address] [id number] [place] [address] Mar, [facility] [place] [facility] [address] [id number] [place] [address] Mar, [facility] [place] [facility] [address] [id number] [place] [address] Mar, [facility] [place] [facility] [address] [id number] [place] [address] Mar, [facility] [place] [facility] [address] [id number] [place] [address]26 Mar, [facility] [place] [facility] [address] [id number] [place] [address]- [address]250 Mar, [facility] [place] [facility] [address] [id number] [place] [address] Mar, [facility] [place] [facility] [address] [id number] [place] [address] 1439 Mar, [facility] [place] [facility] [address] [id number] [place] [address] Mar, [facility] [place] [facility] [address] [id number] [place] [address] 1489 Feb, [facility] [place] [facility] [address] [id number] [place] [address]139 Feb, [facility] [place] [facility] [address] [id number] [place] [address]- 1494 Feb, [facility] [place] [facility] [address] [id number] [place] [address] Feb, [facility] [place] [facility] [address] [id number] [place] [address] 0913 Feb, [facility] [place] [facility] [address] [id number] [place] [address] Feb, [facility] [place] [facility] [address] [id number] [place] [address] 3141 Feb, [facility] [place] [facility] [address] [id number] [place] [address]44 Feb, [facility] [place] [facility] [address] [id number] [place] [address] 1268 Feb, [facility] [place] [facility] [address] [id number] [place] [address] Feb, [facility] [place] [facility] [address] [id number] [place] [address]- 9560 Feb, [facility] [place] [facility] [address] [id number] [place] [address] Feb, [facility] [place] [facility] [address] [id number] [place] [address] Feb, [facility] [place] [facility] [address] [id number] [place] [address] Feb, [facility] [place] [facility] [address] [id number] [place] [address]- [address]285 Feb, [facility] [place] [facility] [address] [id number] [place] [address] 8004 Feb, [facility] [place] [facility] [address] [id number] [place] [address]- [address] Jan, [facility] [place] [facility] [address] [id number] [place] [address] 3690 Jan, [facility] [place] [facility] [address] [id number], [place] [address] Jan, [facility] [place] [facility] [address] [id number], [place] [address] Jan, [facility] [place] [facility] [address] [id number] [place] [address]- 365[address] Jan, [facility] [place] [facility] [address] [id number], [place] [address]- [address] Jan, [facility] [place] [facility] [address] [id number] [place] [address]- 7471 Jan, [facility] [place] [facility] [address] [id number] [place] [address]- [address] 24 Jan, 2012 [facility] [place] [facility] [address] [id number] [place] [address]- 0193 17 Jan, 2012 [facility] [place] [facility] [address] [id number] [place] [address]- [address]326 17 Jan, 2012 [facility] [place] [facility] [address] [id number] [place] [address] 4033 Jan, [facility] [place] [facility] [address] [id number] [place] [address] Jan, [facility] [place] [facility] [address] [id number] [place] [address] Jan, [facility] [place] [facility] [address] [id number] [place] [address] Jan, [facility] [place] [facility] [address] [id number] [place] [address] 08 Jan, 2012 [facility] [place] [facility] [address] [id number] [place] [address]84 05 Jan, 2012 [facility] [place] [facility] [address] [id number] [place] [address] 04 Jan, 2012 [facility] [place] [facility] [address] [id number] [place] [address] 21 Dec, 2011 [facility] [place] [facility] [address] [id number] [place] [address] 6843 20 Sep, 2011 [facility] [place] [facility] [address] [id number] [place] [address] 5744 18 Sep, 2011 [facility] [place] [facility] [address] [id number] [place] [address] 8465 18 Sep, 2011 [facility] [place] [facility] [address] [id number] [place] [address] 7152 10 Sep, 2011 [facility] [place] [facility] [address] [id number] [place] [address] Dec, [facility] [place] [facility] [address] [id number] [place] [address] Dec, [facility] [place] [facility] [address] [id number] [place] [address] Dec, [facility] [place] [facility] [address] [id number] [place] [address] 269[address] Nov, [facility] [place] [facility] [address] [id number] [place] [address]104 Nov, [facility] [place] [facility] [address] [id number] [place] [address] 49[address] Nov, [facility] [place] [facility] [address] [id number] [place] [address] 2035 Nov, [facility] [place] [facility] [address] [id number] [place] [address] 2217 Nov, [facility] [place] [facility] [address] [id number] [place] [address] 4[address] Nov, [facility] [place] [facility] [address] [id number] [place] [address] Oct, [facility] [place] [facility] [address] [id number] [place] [address]359 Oct, [facility] [place] [facility] [address] [id number] [place] [address] Oct, [facility] [place] [facility] [address] [id number] [place] [address] 97[address] Oct, [facility] [place] [facility] [address] [id number] [place] [address] 64[address] Oct, [facility] [place] [facility] [address] [id number] [place] [address] 7566 Oct, [facility] [place] [facility] [address] [id number] [place] [address] 8349 Oct, [facility] [place] [facility] [address] [id number] [place] [address] 7749 26 Sep, 2011 [facility] [place] [facility] [address] [id number] [place] [address] 5[address] 25 Sep, 2011 [facility] [place] [facility] [address] [id number] [place] [address] Sep, [facility] [place] [facility] [address] [id number] [place] [address] 5634 20 Sep, 2011 [facility] [place] [facility] [address] [id number] [place] [address] 8388 19 Sep, 2011 [facility] [place] [facility] [address] [id number] [place] [address] 8488 15 Sep, 2011 [facility] [place] [facility] [address] [id number] [place] [address] 2979 14 Sep, 2011 [facility] [place] [facility] [id number] [place] [address] Sep, [facility] [place] [facility] [address] [id number] [place] [address] 6075 05 Sep, 2011 [facility] [place] [facility] [address] [id number] [place] [address] 9820 04 Sep, 2011 [facility] [place] [facility] [address] [id number] [place] [address] August, [facility] [place] [facility] [address] [id number] [place] [address] August, [facility] [place] [facility] [address] [id number] [place] [address] 7507 August, [facility] [place] [facility] [address] [id number] [place] [address] 9[address] August, [facility] [place] [facility] [address] [facility] [id number] [place] [address] 0052 August, [facility] [place] [facility] [address] [facility] [id number] [place] [address] 7932 Jul, [facility] [place] [facility] [address] [id number] [place] [address] 0533 Jul, [facility] [place] [facility] [address] [id number] [place] [address] 2313 Jul, [facility] [place] [facility] [address] [id number] [place] [address] 6156 17 Jul, 2011 [facility] [place] [facility] [address] [id number] [place] [address] 6492 Jul, [facility] [place] [facility] [address] [id number] [place] [address] 7327 Jul, [facility] [place] [facility] [address] [id number] [place] [address] 6734 Jul, [facility] [place] [facility] [address] [id number] [place] [address] 6013 Jun, [facility] [place] [facility] [address] [id number] [place] [address] 2761 Jun, [facility] [place] [facility] [address] [id number] [place] [address] 5560 Jun, [facility] [place] [facility] [address] [id number] [place] [address] 3072 Jun, [facility] [place] [facility] [address] [facility] [id number] [place] [address] 0447 Jun, [facility] [place] [facility] [address] [id number] [place] [address] 6036 May, [facility] [place] [facility] [address] [id number] [place] [address] 9924 May, [facility] [place] [facility] [address] [id number] [place] [address] 8687 May, [facility] [place] [facility] [address] [id number] [place] [address]- 6063 May, [facility] [place] [facility] [address] [id number] [place] [address] 5604 May, [facility] [place] [facility] [address] [id number] [place] [address] 3013 May, [facility] [place] [facility] [address] [id number] [place] [address] Apr, [facility] [place] [facility] [address] [id number] [place] [address] 5043 Mar, [facility] [place] [facility] [address] [id number] [place] [address] 3615 Feb, [facility] [place] [facility] [address] [id number] [place] [address] 4993 Feb, [facility] [place] [facility] [address] [id number] [place] [address] 2117 Feb, [facility] [place] [facility] [address] [id number] [place] [address] 1905 Feb, [facility] [place] [facility] [address] [id number] [place] [address] 8700 Jan, [facility] [place] [facility] [address] [id number] [place] [address] 3540 Jan, [facility] [place] [facility] [address] [id number] [place] [address]- 1309 Jan, [facility] [place] [facility] [address] [id number], [place] [address] Jan, [facility] [place] [facility] [address] [id number], [place] [address] 9044 Jan, [facility] [place] [facility] [address] [id number] [place] [address]- 7936 Dec, [facility] [place] [facility] [address] [id number] [place] [address]- 2831 Oct, [facility] [place] [facility] [address] [id number] [place] [address]- 6447 August, [facility] [place] [facility] [address] [id number] [place] [address]- 2483 29 Mar, 2010 [facility] [address] [id number] [place] [address]- 4746 27 Mar, 2010 [facility] [place] [facility] [address] [id number] [place] [address] 2546 16 Mar, 2010 [facility] [place] [facility] [address] [id number] [place] [address]- 2196 15 Mar, 2010 [facility] [place] [facility] [address] [id number] [place] [address] 2549 15 Mar, 2010 [facility] [place] [facility] [address] [id number] [place] [address]- 7293 08 Mar, 2010 [facility] [place] [facility] [address] [id number] [place] [address] 03 Mar, 2010 [facility] [place] [facility] [address] [id number] [place] [address]- 7930 24 Feb, 2010 [facility] [place] [facility] [address] [id number] [place] [address]- 8431 24 Feb, 2010 [facility] [place] [facility] [address] [id number] [place] [address]- 6759 Feb, [facility] [place] [facility] [address] [facility] [id number] [place] [address]- 0615 Jan, [facility] [place] [facility] [address] [id number] [place] [address]- 9801 18 Jan, 2010 [facility] [place] [facility] [address] [id number] [place] [address]- 9584 Jan, [facility] [place] [facility] [address] [id number] [place] [address]- 6732 Nov, [facility] [place] [facility] [address] [id number] [place] [address]- 9346 Sep, [facility] [place] [facility] [address] [id number] [place] [address]- 2716 August, [facility] [place] [facility] [address] [id number], [place] [address]- 1671 30 Mar, 2009 [facility] [place] [facility] [address] [id number] [place] [address]- 9873 07 Mar, 2009 [facility] [place] [facility] [address] [id number] [place] [address]- 8402 17 Feb, 2009 [facility] [place] [facility] [address] [id number], [place] [address]- 4466 Feb, [facility] [place] [facility] [address] [id number] [place] [address]- 0616 10 Feb, 2009 [facility] [place] [facility] [address] [id number], [place] [address]- 8144 Feb, [facility] [place] [facility] [address] [id number] [place] [address]- 4105 Feb, [facility] [place] [facility] [address] [id number], [place] [address]- 0833 27 Jan, 2009 [facility] [place] [facility] [address] [id number], [place] [address]- 1133 Jan, [facility] [place] [facility] [address] [id number], [place] [address]- 4455 20 Jan, 2009 [facility] [place] [facility] [address] [id number], [place] [address]- 2118 Jan, [facility] [place] [facility] [address] [id number], [place] [address]- 1525 Nov, [facility] [place] [facility] [address] [id number], [place] [address]- 4557 16 Sep, 2008 [facility] [place] [facility] [address] [id number], [place] [address]- 9082 August, [facility] [place] [facility] [address] [id number], [place] [address]- 6266 14 Jul, 2008 [facility] [place] [facility] [address] [facility] [id number] [place] [address] May, IMMUNIZATIONS No Known Immunizations SOCIAL HISTORY Never Assessed REASON FOR VISIT f/rob Núñez MA PLAN OF CARE Activity Details Follow Up 2 Months Reason: VITAL SIGNS Height 64 in 2017-10-28 Weight 151.0 lbs 2017-10-28 Heart Rate 95 bpm 2017-10-28 Respiratory Rate 20 2017-10-28 Oximetry on room air:93 % 2017-10-28 BMI 25.92 kg/m2 2017-10-28 Blood pressure systolic 100 mmHg 2017-10-28 Blood pressure diastolic 60 mmHg 2017-10-28 MEDICATIONS Medication Instructions Dosage Frequency Start Date End Date Duration Status Benefiber - Active Lamictal 25 MG Orally every night 3 tablets Apr, Active Naproxen 250 MG Orally Twice a day PRN migraines 1 tablet with food or milk Active Lomotil 2.5-0.025 mg Orally Four times a day PRN loose stools TWO TABLETS Active Abilify 10 MG TAKE 1 TABLET ONE TIME DAILY Active Namenda 10 mg TAKE 1 TABLET EVERY DAY Active Remeron 45 MG Orally Once a day at bedtime 1 tablet Feb, Active Alendronate Sodium 70 MG TAKE 1 TABLET EVERY WEEK Active Eliquis 5 MG Orally 2 times a day 12h Active Farxiga 5 Orally Once a day 1 tablet 24h 30 Active Nitroglycerin 0.4 MG Active Magnesium 400 MG Orally Once a day 1 tablet 24h Active Oxygen 5 inhalation all the time Active Xifaxan 550 MG Orally Three times a day 1 tablet 8h Active Pantoprazole Sodium 40 MG Orally 2 times a day 1 tablet 12h Active Albuterol Sulfate 2.5 mg /3 mL (0.083 %) 1 Each by Inhalation route every 4 hours for cough and wheeze PRN for wheezing or cough Jun, Active Diltiazem HCl ER 240 MG Orally Once a day 1 capsule 24h Active Singulair 10 MG TAKE 1 TABLET ONE TIME DAILY 90 Active Carafate 1 GM Orally 4 times a day PRN 1 tablet Active Ropinirole HCl 2 MG TAKE 1 TABLET ONE TIME DAILY AT BEDTIME 90 Active Calcium Orally Once a day 1 tablet with D3 800 24h Active Ventolin HFA 108 (90 Base) MCG/ACT INHALE 2 PUFFS EVERY 4 HOURS NEEDED 16 Active Omeprazole 40 mg Orally 2 times a day 1 capsule 12h Active Vitamin D 50,000 Orally once a week 1 tablet Active Baclofen 20 MG TAKE ONE TABLET BY MOUTH THREE TIMES DAILY WITH FOOD OR MILK 30 Active Glucometer 1 test blood sugar Jul, Active Oxybutynin Chloride ER 10 MG Orally Once a day 1 tablet 24h Active Baclofen 20 TAKE ONE TABLET BY MOUTH THREE TIMES A DAY WITH FOOD OR MILK 30 Active Clonazepam 1 MG Orally Once a day 1 tablet 24h Active Zofran ODT 4 mg Orally every 4 hrs PRN 1 tablet on the tongue and allow to dissolve Jul, Active Neurontin 400 mg Orally Three times a day 1 capsule 8h August, 30 day(s) Active BusPIRone HCl 5 MG Orally Three times a day 1 tablet 8h Active Ranitidine HCl 150 MG Orally 2 times a day 1 tablet at bedtime 12h Active Symbicort 160-4.5 MCG/ACT INHALE 2 PUFFS TWICE DAILY, IN THE MORNING AND IN THE EVENING 90 Active Trazodone HCl 150 MG Orally Once a day 1 tablet at bedtime 24h Active Welchol 625 MG Orally twice a day 2 tablets 12h Active Lasix 20 mg Orally Once a day 1 tablet 24h Oct, 30 day(s) Active Spiriva HandiHaler 18 MCG Inhalation Once a day 1 capsule 24h Active RESULTS No Results PROCEDURES Procedure Date Ordered Result Body Site [facility] VISIT ESTABLISHED PATIENT October 28, 2017 INSTRUCTIONS MEDICATIONS ADMINISTERED No Known Medications [...] Knee Surgery 07/16/17 Hospitalization History [facility] [place]- left hand/wrist swelling 10/09/2017
--- OUTSIDE RECORDS SUMMARY | 2018-01-01 11:25 | XMS REPORT ---
Author Author SENAIT DUNLAP [facility] Address [address] [place] [address] Care Team Providers Care Hand Finisher Name Role Phone SENAIT DUNLAP Unavailable PROBLEMS Type Condition ICD9-CM Code [id number] Code Onset Dates Condition Status SNOMED Code Problem 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 Active 38699429 Problem Colon polyp K63.5 Active 53779581 Problem Screening breast examination Z12.39 Active 478450353 Problem Bilateral low back pain without sciatica M54.5 Active 306783235 Problem Postmenopausal Z78.0 Active 06393510 Problem Essential tremor G25.0 Active 95104377 Problem Osteopenia M85.80 Active 499586486 Problem Hyperlipidemia E78.5 Active 58276393 Problem Cigarette nicotine dependence without complication F17.210 Active 88228856 Problem Vascular dementia without behavioral disturbance F01.50 Active 30759315751559781 Problem Arthritis M19.90 Active 6598880 Problem Chronic atrial fibrillation I48.2 Active 097787614 Problem Dementia without behavioral disturbance, unspecified dementia type F03.90 Active 75022986 Problem Other chronic pancreatitis K86.1 Active 405350761 Problem Xeroderma Q80.9 Active 21505726 Problem Chronic obstructive pulmonary disease with acute lower respiratory infection J44.0 Active 014031725 Problem Type 2 diabetes mellitus with diabetic neuropathy, without long-term current use of insulin E11.40 Active 38748976 Problem Atherosclerosis of lytton artery of both lower extremities with intermittent claudication I70.213 Active 742969923393605 Problem Hammertoe of right foot M20.41 Active 790212322 Problem Hammertoe of left foot M20.42 Active 805271568 Problem Migraine without aura and with status migrainosus, not intractable G43.001 Active 199990454 Problem Migraine without aura and without status migrainosus, not intractable G43.009 Active 490889637 Problem Major depressive disorder, recurrent episode, moderate F33.1 Active 927291938 Problem Unspecified psychosis F29 Active 83125456 Problem Cervicalgia M54.2 Active 6769039642856 Problem Diabetic polyneuropathy associated with type 2 diabetes mellitus E11.42 Active 50033444 Problem COPD (chronic obstructive pulmonary disease) J44.9 Active 96804805 Problem 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 Active 5825358182095 Problem Gastroparesis K31.84 Active 418401675 Problem Stress incontinence of urine N39.3 Active 99990424 Problem Osteoporosis M81.0 Active 71619987 Problem Controlled type 2 diabetes mellitus without complication, without long -term current use of insulin E11.9 Active 052199904 Problem Barretts esophagus K22.70 Active 696980477 Problem Chronic fatigue R53.82 Active 46488691 Problem History of common bile duct surgery Z98.89 Active 218034001 Problem Bipolar affective disorder, currently depressed, moderate F31.32 Active 670324851 Problem Generalized anxiety disorder F41.1 Active 918789415 Problem Gastroesophageal reflux disease, esophagitis presence not specified K21.9 Active 080920489 Problem Coronary artery disease involving lytton coronary artery of lytton 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 I25.118 Active 5663971565242 Problem Postconcussion syndrome F07.81 Active 52694714 Problem Chronic pain syndrome G89.4 Active 750443151 Problem Type 2 diabetes mellitus with diabetic peripheral angiopathy without gangrene E11.51 Active 261581133 Problem Paroxysmal atrial fibrillation I48.0 Active 032668871 Problem Unspecified atherosclerosis of lytton arteries of extremities, unspecified extremity I70.209 Active 965636952398479 Problem Acute exacerbation of chronic obstructive pulmonary disease (COPD) J44.1 Active 978084429 Problem Crohn''s disease without complication, unspecified gastrointestinal tract location K50.90 Active 25874890 ALLERGIES No Information ENCOUNTERS Encounter Location Date Diagnosis [facility] [address] [facility] [id number] [address] Feb, [facility] [address] [id number] [address] Dec, [facility] [address] [facility] [id number] [address] Nov, [facility] [id number] [place] [address] 56176- 5357 Nov, Onychomycosis B35.1 ; Hammertoe of left foot M20.42 ; Hammertoe of right foot M20.41 and Type 2 diabetes mellitus with diabetic neuropathy, without long-term current use of insulin E11.40 [place] [id number] [place] [address] 41971- 0485 Nov, [place] [id number] [place] [address] 46704- 4020 Nov, Bronchitis J40 [place] [id number] [place] [address] 50647- 8949 Oct, [place] [id number] [place] [address] 75304- 4784 Oct, Bipolar affective disorder, currently depressed, moderate F31.32 ; Vascular dementia without behavioral disturbance F01.50 and Generalized anxiety disorder F41.1 [place] [id number] [place] [address] 38093- 8329 Oct, [place] [id number] [place] [address] 14625- 0763 Oct, [place] [id number] [place] [address] 90746- 6370 Oct, Edema of both legs R60.0 [place] [id number] [place] [address] 93964- 2147 Oct, [place] [id number] [place] [address] 20691- 5327 Sep, [place] [id number] [place] [address] 42351- 2345 Sep, [place] [id number] [place] [address] 09640- 9235 Sep, [place] [id number] [place] [address] 54473- 2399 Sep, Encounter for well woman exam with routine gynecological exam Z01.419 ; Screening for STDs (sexually transmitted diseases) Z11.3 ; Screening breast examination Z12.31 and Overweight (BMI 25.0-29.9) E66.3 [facility] [id number] [place] [address] 54491- 7776 11 Sep, 2017 [facility] [id number] [place] [address] 37169- 3564 Sep, [facility] [id number] [place] [address] 75686- 8464 Sep, [facility] [id number] [place] [address] 14678- 1104 August, [facility] [id number] [place] [address] 90956- 7811 August, [facility] [id number] [place] [address] 54873- 2902 August, Type 2 diabetes mellitus with diabetic neuropathy, without long-term current use of insulin E11.40 and Sprain of right ankle, unspecified ligament, initial encounter S93.401A [place] [id number] [place] [address] 51533- 1294 August, [facility] [id number] [place] [address] 74654- 7039 August, [facility] [id number] [place] [address] 41951- 7922 August, [facility] [id number] [place] [address] 94459- 3110 August, Gastroesophageal reflux disease, esophagitis presence not specified K21.9 [facility] [id number] [place] [address] 45804- 7871 August, [facility] [id number] [place] [address] 67295- 9418 August, [facility] [id number] [place] [address] 19709- 0964 August, [facility] [address] [place] [address] 00496- 9474 August, Type 2 diabetes mellitus with diabetic neuropathy, without long-term current use of insulin E11.40 and Elevated liver enzymes R74.8 [facility] [id number] [place] [address] 30307- 9405 Jul, [facility] [id number] [place] [address] 61868- 0026 Jul, Cough R05 [facility] [id number] [place] [address] 64233- 1488 Jul, [facility] [id number] [place] [address] 19835- 8121 Jul, [facility] [id number] [place] [address] 41787- 3423 Jul, Bipolar affective disorder, currently depressed, moderate F31.32 ; Vascular dementia without behavioral disturbance F01.50 and Generalized anxiety disorder F41.1 [place] [id number] [place] [address] 07912- 1840 Jul, [facility] [id number] [place] [address] 95762- 2649 Jul, Type 2 diabetes mellitus with diabetic neuropathy, without long-term current use of insulin E11.40 and Elevated liver enzymes R74.8 [facility] [address] [place] [address] 94904- 6227 Jul, [facility] [address] [place] [address] 30964- 9873 Jul, [facility] [id number] [place] [address] 15998- 3211 Jul, [facility] [address] [place] [address] 38224- 0258 Jul, Post-menopausal Z78.0 [facility] [id number] [place] [address] 54009- 5302 Jul, Stress incontinence of urine N39.3 [facility] [id number] [place] [address] 43860- 6987 Jul, [facility] [id number] [place] [address] 14790- 8205 Jul, [facility] [address] 38810- 2717 Jul, Stress incontinence of urine N39.3 and Cough R05 [facility] [id number] [place] [address] 90727- 6535 Jul, [place] [id number] [place] [address] 21751- 3686 Jul, [place] [id number] [place] [address] 96817- 8728 Jul, [facility] [id number] [place] [address] 58951- 3994 Jul, Gastroesophageal reflux disease, esophagitis presence not specified K21.9 [place] [id number] [place] [address] 78193- 0710 Jun, Diabetic polyneuropathy associated with type 2 diabetes mellitus E11.42 [place] [id number] [place] [address] 86172- 6871 Jun, Diabetic polyneuropathy associated with type 2 diabetes mellitus E11.42 ; Coronary artery disease involving lytton coronary artery of lytton 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 I25.118 and Paroxysmal atrial fibrillation I48.0 [place] [id number] [place] [address] 50156- 2234 Jun, [facility] [id number] [place] [address] 95738- 6565 Jun, [facility] [id number] [place] [address] 01626- 4159 Jun, Gastroenteritis K52.9 [place] [address] [place] [address] 29541- 3366 Jun, Gastroenteritis K52.9 [place] [id number] [place] [address] 98453- 9477 Jun, [place] [id number] [place] [address] 03659- 8886 Jun, [place] [id number] [place] [address] 61168- 3617 Jun, Sprain of right ankle, unspecified ligament, [...] tract location K50.90 [facility] [id number] [place] [address] 99696 -6943 17 Jun, 2017 Cough R05 and Chronic obstructive pulmonary disease with acute lower respiratory infection J44.0 [place] [id number] [place] [address] 76605- 2936 16 Jun, 2017 [place] [id number] [place] [address] 34489- 6339 15 Jun, 2017 Coughing R05 ; Unspecified atherosclerosis of lytton arteries of extremities, unspecified extremity I70.209 ; Type 2 diabetes mellitus with diabetic peripheral angiopathy without gangrene E11.51 ; Crohn''s disease without complication, unspecified gastrointestinal tract location K50.90 ; Other chronic pancreatitis K86.1 and Chronic atrial fibrillation I48.2 [facility] [address] [place] [address] 85811 -6221 Jun, [facility] [id number] [place] [address] 35206- 3893 06 Jun, 2017 Bipolar affective disorder, currently depressed, moderate F31.32 ; Vascular dementia without behavioral disturbance F01.50 and Generalized anxiety disorder F41.1 [facility] [id number] [place] [address] 74361- 1263 May, Generalized anxiety disorder F41.1 [facility] [id number] [place] [address] 65206- 6192 May, [facility] [id number] [place] [address] 03384- 8455 May, [facility] [id number] [place] [address] 78331- 6512 May, Coughing R05 [facility] [address] 40211- 4571 May, [facility] [id number] [place] [address] 08516- 6810 May, Bipolar affective disorder, currently depressed, moderate F31.32 ; Vascular dementia without behavioral disturbance F01.50 and Generalized anxiety disorder F41.1 [facility] [id number] [place] [address] 24056- 0086 Apr, Generalized anxiety disorder F41.1 [facility] [id number] [place] [address] 12264- 5728 Apr, [facility] [id number] [place] [address] 60926- 1051 Apr, Vascular dementia without behavioral disturbance F01.50 ; Generalized anxiety disorder F41.1 and Bipolar affective disorder, currently depressed, moderate F31.32 [facility] [id number] [place] [address] 45361- 7911 Apr, Generalized anxiety disorder F41.1 [facility] [id number] [place] [address] 43510 -9682 Apr, Cough R05 and Acute exacerbation of chronic obstructive pulmonary disease (COPD) J44.1 [facility] [id number] [place] [address] 91492- 2447 Apr, [facility] [id number] [place] [address] 34303 -5634 Mar, Cough R05 and Cigarette nicotine dependence without complication F17.210 [facility] [id number] [place] [address] 54342- 9536 Mar, [facility] [address] 89860- 7789 Feb, Generalized anxiety disorder F41.1 ; Major depressive disorder, recurrent episode, moderate F33.1 ; Vascular dementia without behavioral disturbance F01.50 and Unspecified psychosis F29 [place] [address] 03539- 4114 Feb, [facility] [id number] [place] [address] 41634- 8726 Feb, [facility] [address] 27819- 6507 Feb, Generalized anxiety disorder F41.1 [place] [id number] [place] [address] 20143- 3757 Feb, Generalized anxiety disorder F41.1 [facility] [id number] [place] [address] 99883- 6348 Feb, Dizziness R42 ; Chronic fatigue R53.82 ; Postconcussion syndrome F07.81 ; Fall, initial encounter W19.XXXA and Disorientation R41.0 [facility] [id number] [place] [address] 01829- 5392 03 Feb, 2017 Postconcussion syndrome F07.81 ; Injury of head, initial encounter S09.90XA ; Fall, initial encounter W19.XXXA ; Disorientation R41.0 and Acute cystitis with hematuria N30.01 [facility] [id number] [place] [address] 09604- 8014 Jan, Gastroesophageal reflux disease, esophagitis presence not specified K21.9 ; Post-menopausal Z78.0 and Migraine without aura and without status migrainosus, not intractable G43.009 [facility] [id number] [place] [address] 21158- 0703 Jan, [facility] [id number] [place] [address] 60647- 5338 Jan, Generalized anxiety disorder F41.1 ; Major depressive disorder, recurrent episode, moderate F33.1 ; Vascular dementia without behavioral disturbance F01.50 and Unspecified psychosis F29 [facility] [id number] [place] [address] 03480- 9265 Jan, Pneumonia of left lower lobe due to infectious organism J18.1 [place] [id number] [place] [address] 23814- 7662 Jan, Migraine without aura and with status migrainosus, not intractable G43.001 [facility] [id number] [place] [address] 47380 -6075 Jan, Migraine without aura and without status migrainosus, not intractable G43.009 [facility] [id number] [place] [address] 35474- 9774 Dec, Hematoma T14.8 [facility] [id number] [place] [address] 44241- 9135 Dec, [facility] [id number] [place] [address] 66584 -8245 Nov, Fatigue, unspecified type R53.83 [facility] [id number] [place] [address] 25775- 8080 Nov, Scabies B86 and Coronary artery disease involving lytton coronary artery of lytton 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 I25.118 [facility] [id number] [place] [address] 65279- 4706 Nov, [facility] [id number] [place] [address] 74171- 2262 Nov, [facility] [address] [address]- 9789 Oct, [facility] [id number] [place] [address] 31625- 1354 Oct, Generalized anxiety disorder F41.1 and Major depressive disorder, recurrent episode, moderate F33.1 [facility] [id number] [place] [address] 09261- 5421 Oct, Cramp of both lower extremities R25.2 [facility] [id number] [place] [address] 54819- 4290 Oct, Leg cramps R25.2 [facility] [id number] [place] [address] 32093- 2215 Oct, Chronic pain syndrome G89.4 [facility] [id number] [place] [address] 16794- 2284 Oct, [facility] [id number] [place] [address] 14444- 6352 Oct, [facility] [id number] [place] [address] 50777- 7019 Oct, Routine gynecological examination Z01.419 and Screening for breast cancer Z12.31 [facility] [address] [place] [address] 95127- 0194 Sep, Diarrhea R19.7 [facility] [id number] [place] [address] 18293- 4682 Sep, Back pain M54.9 [facility] [address] [address]- 1748 Sep, [facility] [id number] [place] [address] 48290- 2109 Sep, [facility] [address], [place] [address] -6156 August, Xeroderma Q80.9 [facility] [id number] [place] [address] 26118- 7897 August, Dementia without behavioral disturbance, unspecified dementia type F03.90 [place] [address] 90355- 3389 August, Chronic pain syndrome G89.4 [place] [address] 19631- 8193 August, [place] [address] 37773- 6637 August, Hyperlipidemia E78.5 ; Other fatigue R53.83 and Other specified hypotension I95.89 [facility] [address] 09816 -4645 August, Dysuria R30.0 ; Other fatigue R53.83 and Other specified hypotension I95.89 [place] [address] 80075- 8897 August, [place] [address] 85829- 2241 Jul, Pain in left knee M25.562 and Gastroenteritis K52.9 [place] [address] 07649- 4831 Jul, [place] [id number] [place] [address] 34834- 4908 Jul, Diarrhea R19.7 [facility] [place] [address] 08121 -1384 Jul, Spider bite, accidental or unintentional, initial encounter T63.301A [place] [address] 76057- 9759 Jul, Primary osteoarthritis of right knee M17.11 and Arthritis M19.90 [place] [id number] [place] [address] 83606- 6998 Jul, Generalized anxiety disorder F41.1 and Major depressive disorder, recurrent episode, moderate F33.1 [facility] [id number] [place] [address] 34082- 3299 07 Jul, 2016 Type 2 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 and Temporal headache R51 [place] [id number] [place] [address] 62690- 0860 06 Jul, 2016 Back pain M54.9 [place] [address] 17961- 3603 05 Jul, 2016 [place] [address] 59431- 8545 Jul, [place] [address] 30202- 8161 30 Jun, 2016 Nausea R11.0 [facility] [place] [address] 41901 -0526 Jun, Acute suppurative otitis media of both ears without spontaneous rupture of tympanic membranes, recurrence not specified H66.003 and COPD exacerbation J44.1 [place] [id number] [place] [address] 30548- 0511 Jun, Generalized anxiety disorder F41.1 [place] [id number] [place] [address] 10288- 4417 16 Jun, 2016 [facility] [place] [id number] [place] [address] 16349 -5638 Jun, [facility] [id number] [place] [address] 65026 -9590 Jun, Shortness of breath R06.02 and COPD exacerbation J44.1 [place] [address] 05336- 8539 10 Jun, 2016 Eczema, unspecified type L30.9 [place] [id number] [place] [address] 82613- 5171 09 Jun, 2016 [place] [address] [place] [address]- 8651 May, [facility] [id number] [place] [address] 37739- 0825 May, Muscle cramping R25.2 [facility] [address] 17209- 8228 May, [facility] [address] 16161- 9401 Apr, Diarrhea R19.7 [place] [address] 34148- 4653 Apr, [place] [address] 90909- 4096 Apr, Chronic pain syndrome G89.4 [place] [address] 91103- 0900 Apr, Cramp of both lower extremities R25.2 and Vascular dementia without behavioral disturbance F01.50 [place] [address] 28000- 6036 Apr, Type 2 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 and Cigarette nicotine dependence without complication F17.210 [place] [id number] [place] [address] 34250- 7282 Mar, Generalized anxiety disorder F41.1 [place] [id number] [place] [address] 69465- 4132 Feb, Generalized anxiety disorder F41.1 and Major depressive disorder, recurrent episode, moderate F33.1 [place] [id number] [place] [address] 35946- 9627 Feb, [facility] [id number] [place] [address] 33976 -1811 05 Feb, 2016 Dysuria R30.0 and Acute cystitis with hematuria N30.01 [place] [address] 39548- 7655 Jan, [facility] [address] [place] [address] 30079- 7517 Jan, [facility] [id number] [place] [address] 12071- 4137 Jan, [facility] [id number] [place] [address] 89255- 9570 Jan, [facility] [id number] [place] [address] 16009 -9697 10 Jan, 2016 Wasp sting, accidental or unintentional, initial encounter T63.461A [facility] [id number] [place] [address] 34949- 9477 06 Jan, 2016 Encounter for immunization Z23 [facility] [id number] [place] [address] 65798- 9300 Jan, [facility] [id number] [place] [address] 98520- 1437 Jan, [facility] [id number] [place] [address] 23271- 5812 28 Dec, 2015 Generalized anxiety disorder F41.1 and Major depressive disorder, recurrent episode, moderate F33.1 [facility] [address] [place] [address] 08837- 6403 21 Dec, 2015 Routine gynecological examination Z01.419 ; Postmenopausal Z78.0 ; Screening breast examination Z12.39 ; Osteopenia M85.80 and Breast cancer screening Z12.39 [facility] [id number] [place] [address] 47419- 1861 Dec, [facility] [id number] [place] [address] 79243- 3732 19 Dec, 2015 [facility] [id number] [place] [address] 58001- 1805 16 Dec, 2015 [facility] [id number] [place] [address] 07157- 2070 Dec, [facility] [address] [facility] [id number] [address] 6600 14 Dec, 2015 [facility] [address] [address]- 4066 06 Dec, 2015 [facility] [address], [place] [address] 3750 Nov, [facility] [address], [place] [address] Nov, Cough R05 ; Other viral agents as the cause of diseases classified elsewhere B97.89 and Acute upper respiratory infection, unspecified J06.9 [facility] [address], [place] [address]- 3100 Nov, [facility] [address], [place] [address]- 1269 Nov, [facility] [address], [place] [address]- 9783 Nov, [facility] [address], [place] [address]- 1427 Nov, [facility] [address], [place] [address]- 8301 Nov, [facility] [address], [place] [address]- 2472 Oct, [facility] [address], [place] [address]- 7317 Oct, [facility] [address] [address]- 8673 Oct, [facility] [address], [place] [address]- 7923 Oct, Chronic pain syndrome G89.4 [facility] [address], [place] [address]- 5588 Sep, Generalized anxiety disorder F41.1 and Major depressive disorder, recurrent episode, moderate F33.1 [facility] [id number] [place] [address] 59237- 6849 Sep, [facility] [id number] [place] [address] 93315- 8484 Sep, [facility] [id number] [place] [address] 30088- 4987 14 Sep, 2015 Generalized anxiety disorder F41.1 [facility] [id number] [place] [address] 19451- 7497 13 Sep, 2015 Cramp of both lower extremities R25.2 and Cervicalgia M54.2 [facility] [id number] [place] [address] 16176- 6320 06 Sep, 2015 Generalized anxiety disorder F41.1 [facility] [id number] [place] [address] 56487- 9251 Sep, [facility] [id number] [place] [address] 82579 -3921 August, Rash R21 ; Itching L29.9 and Allergic response, subsequent encounter T78.40XD [facility] [id number] [place] [address] 12141- 1617 August, Primary insomnia F51.01 [facility] [id number] [place] [address] 18971 -6459 August, Rash R21 ; Itching L29.9 and Allergic response, initial encounter T78.40XA [facility] [id number] [place] [address] 59892- 0609 August, [facility] [id number] [place] [address] 51191- 9737 August, Cramp of both lower extremities R25.2 [facility] [id number] [place] [address] 04372- 2446 August, Back pain M54.9 [facility] [address] [facility] [id number] [address]- 1877 August, [facility] [address], [place] [address]- 6317 August, [facility] [address], [place] [address]01[address] August, Cramp of both lower extremities R25.2 [facility] [id number] [address]- 4610 August, [facility] [address], [place] [address]- 6257 August, Syncope R55 ; Paroxysmal atrial fibrillation I48.0 ; Dementia without behavioral disturbance, unspecified dementia type F03.90 and Chronic pain syndrome G89.4 [facility] [address], [place] [address]- 1355 August, Type 2 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 and Syncope R55 [facility] [address], [place] [address]- 8965 Jul, [facility] [address], [place] [address]- 2053 Jul, [facility] [address], [place] [address]- 5365 Jul, [facility] [address], [place] [address]- 9711 Jul, [facility] [address], [place] [address]- 9855 Jul, [facility] [address], [place] [address]- 1094 Jul, UTI (urinary tract infection) N39.0 [facility] [address], [place] [address]- 9491 Jul, [facility] [address] [place] [address] 62147- 7770 18 Jul, 2015 Major depressive disorder, recurrent episode, moderate F33.1 and Generalized anxiety disorder F41.1 [facility] [address] [place] [address] 66439- 0282 14 Jul, 2015 Generalized anxiety disorder F41.1 [facility] [address], [place] [address]- 0075 14 Jul, 2015 Diarrhea R19.7 [facility] [id number] [place] [address] 43324- 8208 14 Jul, 2015 [facility] [address] [place] [address] 40783- 5057 Jun, [facility] [address] [place] [address] 94129- 2164 Jun, Eczema L30.9 [facility] [id number] [place] [address] 58949- 3220 Jun, [facility] [address] [place] [address] 62599- 2590 Jun, COPD (chronic obstructive pulmonary disease) J44.9 [facility] [address] [place] [address] 75000- 1771 Jun, [facility] [address], [place] [address]- 7483 Jun, Major depressive disorder, recurrent episode, moderate F33.1 and Generalized anxiety disorder F41.1 [facility] [address], [place] [address]- 5051 May, [facility] [address] [place] [address] 74009- 6408 May, UTI (urinary tract infection) N39.0 [facility] [address], [place] [address]- 3434 17 May, 2015 [facility] [address] [place] [address] 06312- 1450 May, [facility] [address], [place] [address]- 9365 May, [facility] [address] [place] [address] 32216- 6935 May, [facility] [address], [place] [address]- 0550 Apr, Major depressive disorder, recurrent episode, moderate F33.1 and Generalized anxiety disorder F41.1 [facility] [address] [place] [address] 83208- 1678 Apr, COPD (chronic obstructive pulmonary disease) J44.9 [facility] [address] [place] [address] 60897- 3432 Apr, [facility] [id number] [place] [address] 09142- 1596 Apr, Atrial flutter I48.92 [facility] [address], [place] [address]- 6497 Apr, [facility] [id number] [place] [address] 31388- 7476 Apr, [facility] [address], [place] [address]- 8881 Mar, [facility] [address], [place] [address]- 8250 Mar, [facility] [address], [place] [address]- 3590 Mar, [facility] [address], [place] [address]- 7972 Mar, Hyperlipidemia E78.5 ; Type 2 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 ; Major depressive disorder, recurrent episode, moderate F33.1 and Chronic pain syndrome G89.4 [facility] [address], [place] [address]- 5860 Mar, [facility] [address], [place] [address]- 6197 Mar, [facility] [address] [place] [address] 77748- 3892 Mar, [facility] [address] [place] [address] 78129- 9346 Mar, [facility] [id number] [place] [address] 82438- 9751 Feb, COPD (chronic obstructive pulmonary disease) J44.9 and Back pain M54.9 [facility] [id number] [place] [address] 00483- 7823 Feb, [facility] [id number] [place] [address] 57137- 4110 Feb, [facility] [id number] [place] [address] 33108- 6503 Feb, [facility] [address] [place] [address] 91146- 6406 Feb, [facility] [id number] [place] [address] 31526- 9899 Feb, [facility] [address] [place] [address] 67325- 0407 Feb, [facility] [address] [place] [address] 42146- 3550 Feb, [facility] [address], [place] [address]- 1986 Feb, [facility] [id number] [place] [address] 04560- 0078 Feb, Diabetes E11.9 ; Back pain M54.9 and COPD (chronic obstructive pulmonary disease) J44.9 [facility] [address], [place] [address]- 6879 Jan, [facility] [address] [place] [address] 93421- 9035 Jan, Major depression, recurrent F33.9 and Generalized anxiety disorder F41.1 [facility] [id number] [place] [address] 07715- 7121 Jan, Chronic pain G89.29 [facility] [id number] [place] [address] 68021- 4043 Jan, [facility] [id number] [place] [address] 92255- 8656 Jan, [facility] [id number] [place] [address] 37168- 2527 Jan, [facility] [id number] [place] [address] 04094- 7892 Jan, [facility] [id number] [place] [address] 47016- 6102 Jan, Nicotine dependence F17.200 [facility] [id number] [place] [address] 43987- 7968 Jan, Nicotine dependence F17.200 and Back pain M54.9 [facility] [id number] [place] [address] 68729- 5249 Jan, [facility] [address] [place] [address] 39987- 4301 Dec, [facility] [id number] [place] [address] 89078- 8034 25 Dec, 2014 Anxiety, generalized 300.02 and Major depression, recurrent 296.30 [facility] [id number] [place] [address] 73684- 8187 24 Dec, 2014 [facility] [id number] [place] [address] 94009- 1592 21 Dec, 2014 [facility] [address] [place] [address] 48864- 5849 17 Dec, 2014 [facility] [address], [place] [address]- 9068 15 Dec, 2014 [facility] [id number] [place] [address] 18073- 4378 14 Dec, 2014 [facility] [id number] [place] [address] 51711- 0735 11 Dec, 2014 [facility] [id number] [place] [address] 78673- 0333 10 Dec, 2014 [facility] [id number] [place] [address] 40113- 1372 08 Dec, 2014 Skin tear 879.8 [facility] [id number] [place] [address] 10463- 7118 08 Dec, 2014 Routine gynecological examination V72.31 ; Breast cancer screening V76.10 and Family history of breast cancer in first degree relative V16.3 [facility] [id number] [place] [address] 39303- 3329 03 Dec, 2014 [facility] [id number] [place] [address] 30605- 0838 Dec, [facility] [id number] [place] [address] 52510- 9267 Nov, [facility] [id number] [place] [address] 52944- 3281 Nov, [facility] [id number] [place] [address] 12850- 5977 Nov, Poor balance 781.99 and Vascular dementia, uncomplicated 290.40 [facility] [id number] [place] [address] 78936- 5369 Nov, [facility] [id number] [place] [address] 10419- 0825 Nov, Major depression, recurrent 296.30 and Anxiety, generalized 300.02 [facility] [id number] [place] [address] 15700- 5468 Nov, [facility] [address], [place] [address]- 3518 Nov, [facility] [id number] [place] [address] 99175- 4086 Nov, [facility] [id number] [place] [address] 11563- 1676 Nov, [facility] [id number] [place] [address] 42984- 6234 Nov, Vascular dementia, uncomplicated 290.40 and Lumbago 724.2 [facility] [id number] [place] [address] 96383- 7551 Nov, [facility] [id number] [place] [address] 35466- 2257 Nov, [facility] [id number] [place] [address] 83647- 2613 Nov, [facility] [id number] [place] [address] 51412- 5251 Oct, [facility] [id number] [place] [address] 70093- 2716 Oct, [facility] [address], [place] [address]- 2830 Oct, [facility] [id number] [place] [address] 53230- 1303 Oct, COPD (chronic obstructive pulmonary disease) 496 and Hyperlipidemia 272.4 [facility] [address] [place] [address] 33131- 5662 Oct, Major depression, recurrent 296.30 and Anxiety, generalized 300.02 [facility] [address], [place] [address]- 5161 Oct, [facility] [address] [place] [address] 46026- 5329 Oct, [facility] [address], [place] [address]- 1814 Oct, [facility] [id number] [place] [address] 25238- 3173 Sep, Lumbago 724.2 and Anxiety state, unspecified 300.00 [facility] [id number] [place] [address] 88870- 9969 Sep, [facility] [id number] [place] [address] 12321- 1389 Sep, [facility] [id number] [place] [address] 62828- 4537 August, [facility] [id number] [place] [address] 46365- 4316 August, Major depression, recurrent 296.30 ; Anxiety, generalized 300.02 and No condition on [place] V71.09 [facility] [id number], [place] [address]- 6979 August, [facility] [id number], [place] [address]- 4642 August, [facility] [id number], [place] [address]- 9604 Jul, [facility] [address], [place] [address]- 6013 Jul, [facility] [address], [place] [address]- 0923 Jul, [facility] [address], [place] [address]- 4067 Jun, [facility] [id number]- 1145 Jun, [facility] [address]- 6450 Jun, [facility] [id number] [place] [address]- 0006 27 Jun, 2014 [facility] [place] [facility] [address] [id number] [place] [address]- 4152 26 Jun, 2014 [facility] [place] [facility] [address] [id number] [place] [address]- 1976 23 Jun, 2014 [facility] [place] [facility] [address] [id number] [place] [address]- 5176 23 Jun, 2014 [facility] [place] [facility] [address] [id number] [place] [address]- 3168 17 Jun, 2014 [facility] [place] [facility] [address] [id number] [place] [address]- 1051 Jun, 2014 [facility] [place] [facility] [address] [id number] [place] [address]- 0469 13 Jun, 2014 [facility] [place] [facility] [address] [id number] [place] [address]- 3821 10 Jun, 2014 [facility] [place] [facility] [address] [id number] [place] [address]- 6733 10 Jun, 2014 [facility] [place] [facility] [address] [id number] [place] [address]- 9598 07 Jun, 2014 [facility] [place] [facility] [address] [id number] [place] [address]- 1653 Jun, [facility] [place] [facility] [address] [id number] [place] [address]- 0914 Jun, 2014 [facility] [place] [facility] [address] [id number] [place] [address]- 1519 Jun, [facility] [place] [facility] [address] [id number] [place] [address]- 5410 May, 2014 [facility] [place] [facility] [address] [id number] [place] [address]- 5746 May, 2014 [facility] [place] [facility] [address] [id number] [place] [address]- 7538 May, 2014 [facility] [place] [facility] [address] [id number] [place] [address]- 3506 May, 2014 [facility] [place] [facility] [address] [id number] [place] [address] 2546 May, 2014 [facility] [place] [facility] [address] [id number] [place] [address] 2546 May, 2014 [facility] [place] [facility] [address] [id number] [place] [address] 2546 May, 2014 [facility] [place] [facility] [address] [id number] [place] [address] 2546 May, 2014 [facility] [place] [facility] [address] [id number] [place] [address]- 1356 May, 2014 [facility] [place] [facility] [address] [id number] [place] [address]- 5742 May, 2014 [facility] [place] [facility] [address] [id number] [place] [address] 2540 May, 2014 [facility] [place] [facility] [address] [id number] [place] [address]- 8815 May, 2014 [facility] [place] [facility] [address] [facility] [id number] [place] [address]- 1788 May, [facility] [place] [facility] [address] [facility] [id number] [place] [address] 2545 May, [facility] [place] [facility] [address] [facility] [id number] [place] [address]- 2549 Apr, [facility] [place] [facility] [address] [id number] [place] [address] 2546 Apr, [facility] [place] [facility] [address] [id number] [place] [address]- 8231 Apr, [facility] [place] [facility] [address] [facility] [id number] [place] [address]- 5861 Apr, [facility] [place] [facility] [address] [id number] [place] [address]- 5353 Apr, [facility] [address] [id number] [place] [address]- 6784 Apr, [facility] [place] [facility] [address] [id number] [place] [address]- 7931 Apr, [facility] [place] [facility] [address] [id number] [place] [address]- 2087 Apr, [facility] [place] [facility] [address] [id number] [place] [address]- 9796 Apr, [facility] [place] [facility] [address] [id number] [place] [address]- 7758 Apr, [facility] [place] [facility] [address] [id number] [place] [address]- 8560 Apr, [facility] [place] [facility] [address] [id number] [place] [address] Apr, [facility] [address] [id number] [place] [address] Mar, [facility] [place] [facility] [address] [id number] [place] [address] Mar, [facility] [place] [facility] [address] [id number] [place] [address] Mar, [facility] [place] [facility] [address] [id number] [place] [address] Mar, [facility] [place] [facility] [address] [id number] [place] [address] Mar, [facility] [place] [facility] [address] [id number] [place] [address] Mar, [facility] [place] [facility] [address] [id number] [place] [address] Mar, [facility] [place] [facility] [address] [id number] [place] [address] Mar, [facility] [place] [facility] [address] [id number] [place] [address] 15 Mar, 2014 [facility] [place] [facility] [address] [id number] [place] [address] Mar, [facility] [place] [facility] [address] [id number] [place] [address] 15 Mar, 2014 [facility] [place] [facility] [address] [id number] [place] [address] Mar, [facility] [place] [facility] [address] [id number] [place] [address] Mar, [facility] [place] [facility] [address] [id number] [place] [address] Mar, [facility] [place] [facility] [address] [id number] [place] [address] Mar, [facility] [place] [facility] [address] [id number] [place] [address] Mar, [facility] [place] [facility] [address] [id number] [place] [address] Mar, [facility] [place] [facility] [address] [id number] [place] [address] Mar, [facility] [place] [facility] [address] [id number] [place] [address] Mar, [facility] [place] [facility] [address] [id number] [place] [address] Mar, [facility] [place] [facility] [address] [id number] [place] [address] Feb, [facility] [place] [facility] [address] [id number] [place] [address] Feb, [facility] [place] [facility] [address] [id number] [place] [address] Feb, [facility] [place] [facility] [address] [id number] [place] [address]- [address] Feb, [facility] [place] [facility] [address] [id number] [place] [address] Feb, [facility] [place] [facility] [address] [id number] [place] [address] Feb, [facility] [place] [facility] [address] [id number] [place] [address] Feb, [facility] [place] [facility] [address] [id number] [place] [address] Feb, [facility] [place] [facility] [address] [id number] [place] [address] Feb, [facility] [place] [facility] [address] [id number] [place] [address] Feb, [facility] [place] [facility] [address] [id number] [place] [address] Feb, [facility] [place] [facility] [address] [id number] [place] [address] Feb, [facility] [place] [facility] [address] [id number] [place] [address] Feb, [facility] [facility] [address] [facility] [id number] [place] [address] Feb, [facility] [place] [facility] [address] [id number] [place] [address] 0831 Feb, [facility] [place] [facility] [address] [id number], [place] [address] 4[address] Feb, [facility] [place] [facility] [address] [id number] [place] [address] 8017 Feb, [facility] [place] [facility] [address] [id number] [place] [address]- 2705 Jan, [facility] [place] [facility] [address] [id number], [place] [address] Jan, [facility] [place] [facility] [address] [id number] [place] [address]- 3246 Jan, [facility] [place] [facility] [address] [id number] [place] [address]- 1047 Jan, [facility] [place] [facility] [address] [id number] [place] [address]- 4676 Jan, [facility] [place] [facility] [address] [id number] [place] [address]- 2368 Jan, [facility] [place] [facility] [address] [id number] [place] [address]- 3424 Jan, [facility] [place] [facility] [address] [id number] [place] [address]- 1631 Jan, [facility] [place] [facility] [address] [id number] [place] [address]- 6667 Jan, [facility] [place] [facility] [address] [id number] [place] [address]- 7233 Jan, [facility] [place] [facility] [address] [id number] [place] [address]- 2873 Jan, [facility] [place] [facility] [address] [id number] [place] [address]- 5526 Dec, [facility] [place] [facility] [address] [id number] [place] [address]- 8247 Dec, [facility] [place] [facility] [address] [id number] [place] [address]- 0722 Nov, [facility] [place] [facility] [address] [id number] [place] [address]- 8872 Nov, [facility] [place] [facility] [address] [id number] [place] [address]- 4068 Nov, [facility] [place] [facility] [address] [id number] [place] [address]- 9144 Nov, [facility] [place] [address] [id number] [place] [address]- 3833 Nov, [facility] [place] [address] [id number] [place] [address]- 7831 Nov, [facility] [place] [facility] [address] [id number] [place] [address]- 2056 Nov, [facility] [address] [id number] [place] [address]- 4704 Oct, [facility] [address] [id number] [place] [address]- 3906 Oct, [facility] [address] [id number] [place] [address]- 1467 Oct, [facility] [address] [id number] [place] [address]- 9047 Oct, [facility] [facility] [address] [id number] [place] [address]- 7533 Sep, [facility] [address] [id number] [place] [address]- 1385 Sep, [facility] [facility] [address] [id number] [place] [address]- 2620 Sep, [facility] [place] [facility] [address] [id number] [place] [address]- 9073 Sep, [facility] [address] [id number] [place] [address]- 0435 Sep, [facility] [address] [id number] [place] [address]- 6129 Sep, [facility] [address] [id number] [place] [address]- 3868 Sep, [facility] [address] [id number] [place] [address]- 9884 Sep, [facility] [address] [id number] [place] [address]- 4172 Sep, [facility] [address] [id number] [place] [address]- 3414 Sep, [facility] [address] [id number] [place] [address]- 1821 Sep, [facility] [address] [id number] [place] [address]- 4098 Sep, [facility] [address] [id number] [place] [address]- 7867 Sep, [facility] [address] [id number] [place] [address]- 4190 Sep, [facility] [address] [id number] [place] [address]- 1847 August, [facility] [address] [id number] [place] [address]- 8979 August, [facility] [address] [id number] [place] [address]- 7465 August, [facility] [address] [id number] [place] [address]- 0637 August, [facility] [address] [id number] [place] [address]- 9953 August, [facility] [address] [id number] [place] [address]- 8203 August, [facility] [address] [id number] [place] [address]- 4320 August, [facility] [address] [id number] [place] [address]- 5905 August, [facility] [address] [id number] [place] [address]- 4180 August, [facility] [address] [id number] [place] [address]- 5845 August, [facility] [address] [id number] [place] [address]- 6538 August, [facility] [address] [id number] [place] [address]- 6311 August, [facility] [address] [id number] [place] [address] August, [facility] [address] [id number] [place] [address]- 9878 August, [facility] [address] [id number] [place] [address]- 4958 August, [facility] [address] [id number] [place] [address]- 9861 August, [facility] [address] [id number] [place] [address]- 7212 August, [facility] [address] [id number] [place] [address]- 6131 August, [facility] [address] [id number] [place] [address]- 1153 August, [facility] [address] [id number] [place] [address]- 9067 Jul, [facility] [address] [id number] [place] [address]- 7089 Jul, [facility] [address] [id number] [place] [address]- 7384 Jul, [facility] [address] [id number] [place] [address]- 9714 Jul, [facility] [address] [id number] [place] [address]- 8386 Jun, [facility] [address] [id number] [place] [address]81 Jun, [facility] [address] [id number] [place] [address]- 6893 Jun, [facility] [address] [id number], [place] [address]- 0152 24 Jun, 2013 [facility] [address] [id number] [place] [address]- 1653 17 Jun, 2013 [facility] [address] [id number] [place] [address]36 17 Jun, 2013 [facility] [address] [facility] [id number] [place] [address]- 8729 14 Jun, 2013 [facility] [address] [id number] [place] [address]- 4896 14 Jun, 2013 [facility] [address] [id number] [place] [address]- 2075 Jun, [facility] [address] [facility] [id number] [place] [address]- 4744 Jun, [facility] [address] [facility] [id number] [place] [address]- 6829 May, [facility] [address] [facility] [id number] [place] [address]- 8099 May, [facility] [address] [facility] [id number] [place] [address]- 6449 May, [facility] [address] [facility] [id number] [place] [address]- 3228 May, [facility] [address] [facility] [id number] [place] [address]- 1092 May, [facility] [address] [facility] [id number], [place] [address]- 1403 May, [facility] [address] [facility] [id number] [place] [address]- 8151 May, [facility] [address] [facility] [id number] [place] [address]- 2884 May, [facility] [address] [facility] [id number] [place] [address]- 1327 May, [facility] [address] [id number] [place] [address]- 4828 May, [facility] [address] [id number] [place] [address]- 7536 May, [facility] [address] [id number] [place] [address]- 5810 May, [facility] [address] [id number] [place] [address]- 8826 May, [facility] [address] [id number] [place] [address]- 3936 May, [facility] [address] [id number] [place] [address]- 9137 May, [facility] [address] [id number] [place] [address]- 9624 May, [facility] [address] [id number] [place] [address]- 3630 May, [facility] [address] [id number] [place] [address]- 9604 Apr, [facility] [address] [id number] [place] [address]- 7936 Apr, [facility] [address] [id number] [place] [address]- 8241 Apr, [facility] [address] [id number] [place] [address]- 3362 Apr, [facility] [address] [id number] [place] [address]- 7539 Apr, [facility] [address] [id number] [place] [address]- 4456 Apr, [facility] [address] [id number] [place] [address]- 7895 Apr, [facility] [address] [id number] [place] [address]- 5680 Mar, [facility] [address] [id number] [place] [address]- 7126 Mar, [facility] [address] [id number] [place] [address]- 7336 Mar, [facility] [address] [id number] [place] [address]- 6810 Mar, [facility] [address] [id number] [place] [address]- 6824 Mar, [facility] [address] [id number] [place] [address]- 5687 Mar, [facility] [address] [id number] [place] [address]- 0199 Mar, [facility] [address] [id number] [place] [address]- 0702 Mar, [facility] [address] [id number] [place] [address]- 6671 Mar, [facility] [address] [id number] [place] [address]- 0169 Mar, [facility] [address] [facility] [id number] [place] [address]- 2194 Mar, [facility] [address] [id number] [place] [address]- 2004 Feb, [facility] [address] [id number] [place] [address]- 8175 Feb, [facility] [address] [id number] [place] [address]- 4106 Feb, [facility] [address] [id number] [place] [address]- 2975 Feb, [facility] [address] [id number] [place] [address]- 9181 Feb, [facility] [address] [id number] [place] [address]- 1432 19 Feb, 2013 [facility] [address] [id number] [place] [address]- 4033 15 Feb, 2013 [facility] [facility] [address] [id number] [place] [address]- 5474 14 Feb, 2013 [facility] [facility] [address] [id number] [place] [address]- 4434 14 Feb, 2013 [facility] [facility] [address] [id number] [place] [address]- 7797 Feb, [facility] [place] [facility] [address] [id number] [place] [address]- 6077 Feb, [facility] [place] [facility] [address] [id number] [place] [address]- 6802 Feb, [facility] [place] [facility] [address] [id number], [place] [address]- 4738 Feb, [facility] [address] [id number], [place] [address]- 7379 Feb, [facility] [address] [id number], [place] [address]- 0822 Feb, [facility] [facility] [address] [id number], [place] [address]- 9470 Feb, [facility] [address] [id number], [place] [address]- 1612 Jan, [facility] [address] [id number], [place] [address]- 2892 Jan, [facility] [address] [id number], [place] [address]- 7342 Jan, [facility] [facility] [address] [id number], [place] [address]- 0468 Jan, [facility] [address] [id number], [place] [address]- 0940 Jan, [facility] [place] [facility] [address] [id number] [place] [address]- 5432 Jan, [facility] [place] [facility] [address] [id number] [place] [address]- 1256 Jan, [facility] [place] [facility] [address] [id number] [place] [address]- 7716 Jan, [facility] [place] [facility] [address] [id number] [place] [address]- 4700 10 Jan, 2013 [facility] [place] [facility] [address] [id number] [place] [address]- 2755 27 Dec, 2012 [facility] [place] [facility] [address] [id number] [place] [address]- 7325 20 Dec, 2012 [facility] [place] [facility] [address] [id number] [place] [address]- 0593 19 Dec, 2012 [facility] [place] [facility] [address] [id number] [place] [address]- 2744 10 Dec, 2012 [facility] [place] [facility] [address] [id number] [place] [address]- 5028 04 Dec, 2012 [facility] [place] [facility] [address] [id number] [place] [address]- 1761 03 Dec, 2012 [facility] [place] [facility] [address] [id number] [place] [address]- 7481 Nov, [facility] [place] [facility] [address] [id number] [place] [address]- 2541 Nov, [facility] [place] [facility] [address] [id number] [place] [address]- 7571 Nov, [facility] [place] [facility] [address] [id number] [place] [address]- 2342 Nov, [facility] [place] [facility] [address] [id number] [place] [address]- 0761 Nov, [facility] [place] [facility] [address] [id number] [place] [address]- 5655 Nov, [facility] [place] [facility] [address] [id number] [place] [address]- 3355 Nov, [facility] [place] [facility] [address] [id number] [place] [address]- 5216 Nov, [facility] [place] [facility] [address] [id number] [place] [address]- 8539 Nov, [facility] [place] [facility] [address] [id number] [place] [address]- 6595 Nov, [facility] [place] [facility] [address] [id number] [place] [address]- 3075 Oct, [facility] [place] [facility] [address] [id number] [place] [address]- 0133 Oct, [facility] [place] [facility] [address] [id number] [place] [address]- 3802 Oct, [facility] [place] [facility] [address] [id number] [place] [address]- 3167 Oct, [facility] [place] [facility] [address] [id number] [place] [address]- 6333 Oct, [facility] [place] [facility] [address] [id number] [place] [address]- 1898 Oct, [facility] [place] [facility] [address] [id number] [place] [address]- 1549 Oct, [facility] [place] [facility] [address] [id number] [place] [address]- 4048 Oct, [facility] [place] [facility] [address] [id number] [place] [address]- 8480 Sep, [facility] [place] [facility] [address] [id number] [place] [address]- 0016 Sep, [facility] [place] [facility] [address] [id number] [place] [address]- 3033 Sep, [facility] [address] [id number] [place] [address]- 4369 Sep, [facility] [place] [facility] [address] [id number] [place] [address]- 5256 Sep, [facility] [place] [facility] [address] [id number] [place] [address]- 9669 Sep, [facility] [place] [facility] [address] [id number] [place] [address]- 9320 Sep, [facility] [address] [id number] [place] [address]- 0004 Sep, [facility] [place] [facility] [address] [id number] [place] [address]- 1616 August, [facility] [place] [facility] [address] [id number] [place] [address]- 0527 August, [facility] [place] [facility] [address] [id number] [place] [address]- 1857 August, [facility] [place] [facility] [address] [id number] [place] [address]- 3643 August, [facility] [place] [facility] [address] [id number] [place] [address]- 0565 August, [facility] [place] [facility] [address] [id number] [place] [address]- 2237 Jul, [facility] [place] [facility] [address] [id number], [place] [address]- 8843 Jul, [facility] [place] [facility] [address] [id number] [place] [address]- 8612 Jul, [facility] [place] [facility] [address] [id number] [place] [address]- 0805 Jul, [facility] [place] [facility] [address] [id number] [place] [address]- 6484 Jul, [facility] [place] [facility] [address] [id number] [place] [address]- 2010 18 Jun, 2012 [facility] [address] [id number] [place] [address]- 4143 18 Jun, 2012 [facility] [place] [facility] [address] [id number] [place] 8976 15 Jun, 2012 [facility] [address] [id number] [place] [address] 14 Jun, 2012 [facility] [place] [facility] [address] [id number] [place] [address] 12 Jun, 2012 [facility] [address] [id number] [place] [address] 08 Jun, 2012 [facility] [place] [facility] [address] [id number] [place] [address]65 08 Jun, 2012 [facility] [address] [id number] [place] [address] 02 Jun, 2012 [facility] [place] [facility] [address] [id number] [place] [address] Jun, [facility] [place] [facility] [address] [id number] [place] [address] 27 May, 2012 [facility] [address] [facility] [id number] [place] [address] 25 May, 2012 [facility] [place] [facility] [address] [id number] [place] [address] 20 May, 2012 [facility] [place] [facility] [address] [id number] [place] [address] 2488 12 May, 2012 [facility] [place] [facility] [address] [id number] [place] [address] 15 Apr, 2012 [facility] [place] [facility] [address] [id number] [place] [address] Apr, [facility] [place] [facility] [address] [id number] [place] [address] Apr, [facility] [address] [id number] [place] [address] Apr, [facility] [address] [id number] [place] [address] Apr, [facility] [address] [id number] [place] [address] Apr, [facility] [address] [id number] [place] [address] Apr, [facility] [address] [id number] [place] [address]- 49[address] Mar, [facility] [address] [place] [id number] Mar, [facility] [address] [id number] [place] [address] Mar, [facility] [address] [id number] [place] [address] 4[address] Mar, [facility] [address] [id number] [place] [address] Mar, [facility] [address] [id number] [place] [address] Mar, [facility] [address] [id number] [place] [address] 14[address] Mar, [facility] [address] [id number] [place] [address] Mar, [facility] [address] [id number] [place] [address] 79[address] Mar, [facility] [address] [id number] [place] [address] 8[address] Mar, [facility] [address] [id number] [place] [address] Mar, [facility] [address] [id number] [place] [address] Mar, [facility] [place] [facility] [address] [id number] [place] [address] 0746 Mar, [facility] [place] [facility] [address] [id number] [place] [address] Mar, [facility] [place] [facility] [address] [id number] [place] [address] Mar, [facility] [place] [facility] [address] [id number] [place] [address] Mar, [facility] [place] [facility] [address] [id number] [place] [address]279 Mar, [facility] [place] [facility] [address] [id number] [place] [address]290 Feb, [facility] [place] [facility] [address] [id number] [place] [address] Feb, [facility] [place] [facility] [address] [id number] [place] [address] 9[address] Feb, [facility] [place] [facility] [address] [id number] [place] [address] 58[address] Feb, [facility] [place] [facility] [address] [id number] [place] [address]120 Feb, [facility] [place] [facility] [address] [id number], [place] [address] Feb, [facility] [place] [facility] [address] [id number], [place] [address] Feb, [facility] [place] [facility] [address] [id number] [place] [address] 8021 Feb, [facility] [place] [facility] [address] [id number], [place] [address] Feb, [facility] [place] [facility] [address] [id number], [place] [address] Feb, [facility] [place] [facility] [address] [id number] [place] [address]- 0919 13 Feb, 2012 [facility] [place] [facility] [address] [id number] [place] [address]- 4667 13 Feb, 2012 [facility] [place] [facility] [address] [id number] [place] [address]- [address]704 Feb, [facility] [place] [facility] [address] [id number] [place] [address]- 0100 Feb, [facility] [place] [facility] [address] [id number] [place] [address]- 0204 Feb, [facility] [place] [facility] [address] [id number] [place] [address]- 5693 Feb, [facility] [place] [facility] [address] [id number] [place] [address] 9379 Jan, [facility] [place] [facility] [address] [facility] [id number] [place] [address]- 7480 Jan, [facility] [place] [facility] [address] [id number] [place] [address]- 0787 Jan, [facility] [place] [facility] [address] [facility] [id number] [place] [address]- 5790 Jan, [facility] [place] [facility] [address] [facility] [id number] [place] [address]- 9425 Jan, [facility] [place] [facility] [address] [facility] [id number] [place] [address]- 5286 Jan, [facility] [place] [facility] [address] [id number], [place] [address] Jan, [facility] [place] [facility] [address] [id number] [place] [address]- 7880 Jan, [facility] [place] [facility] [address] [facility] [id number] [place] [address] 1285 Jan, [facility] [place] [facility] [address] [id number] [place] [address] Jan, [facility] [place] [facility] [address] [id number] [place] [address]- 1157 12 Jan, 2012 [facility] [place] [facility] [address] [id number] [place] [address]- 4015 Jan, [facility] [place] [facility] [address] [id number] [place] [address]- 8508 Jan, [facility] [place] [facility] [address] [id number] [place] [address]- 2934 Jan, [facility] [place] [facility] [address] [id number] [place] [address]- 4411 08 Jan, 2012 [facility] [place] [facility] [address] [id number] [place] [address]- 1822 05 Jan, 2012 [facility] [place] [facility] [address] [id number] [place] [address]- 4203 04 Jan, 2012 [facility] [place] [facility] [address] [id number] [place] [address]- 4789 21 Dec, 2011 [facility] [place] [facility] [address] [id number] [place] [address]- 1156 20 Dec, 2011 [facility] [place] [facility] [address] [id number] [place] [address]- 8630 18 Dec, 2011 [facility] [place] [facility] [address] [id number] [place] [address]- 9961 18 Sep, 2011 [facility] [place] [facility] [address] [id number] [place] [address] 10 Sep, 2011 [facility] [place] [facility] [address] [id number] [place] [address] 10 Sep, 2011 [facility] [place] [facility] [address] [id number] [place] [address] 10 Dec, 2011 [facility] [place] [facility] [address] [id number] [place] [address] 07 Sep, 2011 [facility] [place] [facility] [address] [id number] [place] [address] Nov, [facility] [place] [facility] [address] [id number] [place] [address] Nov, [facility] [place] [facility] [address] [id number] [place] [address] Nov, [facility] [place] [facility] [address] [id number] [place] [address] Nov, [facility] [place] [facility] [address] [id number] [place] [address] Nov, [facility] [place] [facility] [address] [id number] [place] [address] 1376 Nov, [facility] [place] [facility] [address] [id number] [place] [address] Oct, [facility] [place] [facility] [address] [id number] [place] [address] 9706 Oct, [facility] [place] [facility] [address] [id number] [place] [address] 7958 Oct, [facility] [place] [facility] [address] [id number] [place] [address] 9124 Oct, [facility] [place] [facility] [address] [id number] [place] [address] 0441 Oct, [facility] [place] [facility] [address] [id number] [place] [address] 8867 Oct, [facility] [place] [facility] [address] [id number] [place] [address] 8355 Oct, [facility] [place] [facility] [address] [id number] [place] [address] 3[address] Sep, [facility] [place] [facility] [address] [id number] [place] [address] 4687 Sep, [facility] [place] [facility] [address] [id number] [place] [address] 8757 Sep, [facility] [place] [facility] [address] [id number] [place] [address]- 1442 20 Sep, 2011 [facility] [address] [id number] [place] [address] 0647 19 Sep, 2011 [facility] [address] [id number] [place] [address] 2163 15 Sep, 2011 [facility] [address] [id number] [place] [address] 0621 14 Sep, 2011 [facility] [address] [id number] [place] [address] 6407 11 Sep, 2011 [facility] [address] [id number] [place] [address] 3335 05 Sep, 2011 [facility] [address] [id number] [place] [address] 4835 04 Sep, 2011 [facility] [address] [id number] [place] [address] 277[address] August, [facility] [address] [id number] [place] [address] 6499 August, [facility] [address] [id number] [place] [address] 5590 August, [facility] [address] [id number] [place] [address] 8428 August, [facility] [address] [id number] [place] [address] 1545 August, [facility] [address] [id number] [place] [address] 6746 Jul, [facility] [place] [facility] [address] [id number] [place] [address] 6394 Jul, [facility] [place] [facility] [address] [id number] [place] [address] 4540 Jul, [facility] [address] [id number] [place] [address] 1915 Jul, [facility] [address] [id number] [place] [address] 3722 Jul, [facility] [place] [facility] [address] [id number] [place] [address] 9986 Jul, [facility] [place] [facility] [address] [id number] [place] [address] Jul, [facility] [place] [facility] [address] [id number] [place] [address] 8084 Jun, [facility] [place] [facility] [address] [id number] [place] [address] 7961 Jun, [facility] [place] [facility] [address] [id number] [place] [address] 8008 Jun, [facility] [place] [facility] [address] [id number] [place] [address] 2339 Jun, [facility] [place] [facility] [address] [id number] [place] [address] 9404 Jun, [facility] [place] [facility] [address] [id number] [place] [address]- 8383 May, [facility] [place] [facility] [address] [id number] [place] [address] 1374 May, [facility] [place] [facility] [address] [id number] [place] [address]- 7324 May, [facility] [place] [facility] [address] [id number] [place] [address] 7613 May, [facility] [place] [facility] [address] [id number] [place] [address]- 8920 May, [facility] [place] [facility] [address] [id number] [place] [address]- 2437 May, [facility] [place] [facility] [address] [id number] [place] [address]- 1437 Apr, [facility] [place] [facility] [address] [id number] [place] [address]- 4300 29 Mar, 2011 [facility] [address] [id number] [place] [address] 0214 Feb, [facility] [place] [facility] [address] [id number] [place] [address] Feb, [facility] [address] [id number] [place] [address] 0967 Feb, [facility] [place] [facility] [address] [id number] [place] [address]- 9823 Feb, [facility] [address] [id number] [place] [address], [place] [address] 9332 31 Jan, 2011 [facility] [place] [facility] [address] [id number] [place] [address]- 2211 Jan, [facility] [address] [id number] [place] [address]- 3833 Jan, [facility] [address] [id number] [place] [address]- 9178 24 Jan, 2011 [facility] [place] [facility] [address] [id number] [place] [address]- 2214 14 Jan, 2011 [facility] [address] [id number] [place] [address]- 9712 Dec, [facility] [place] [facility] [address] [id number] [place] [address]- 6846 Oct, [facility] [place] [facility] [address] [id number] [place] [address]- 4011 August, [facility] [place] [facility] [address] [id number] [place] [address] 29 Mar, 2010 [facility] [place] [facility] [address] [id number] [place] [address]- 7145 27 Mar, 2010 [facility] [place] [facility] [address] [id number] [place] [address] 16 Mar, 2010 [facility] [place] [facility] [address] [id number] [place] [address]- 1531 15 Mar, 2010 [facility] [place] [facility] [address] [id number] [place] [address] 15 Mar, 2010 [facility] [place] [facility] [address] [id number] [place] [address]- 5500 08 Mar, 2010 [facility] [place] [facility] [address] [id number] [place] [address]- 3846 Mar, [facility] [place] [facility] [address] [id number] [place] [address]- 7125 Feb, [facility] [place] [facility] [address] [id number] [place] [address]- 8132 Feb, [facility] [place] [facility] [address] [id number] [place] [address]- 9214 Feb, [facility] [place] [facility] [address] [id number] [place] [address]- 6865 Jan, [facility] [place] [facility] [address] [id number] [place] [address]- 6173 Jan, [facility] [place] [facility] [address] [id number] [place] [address]- 1791 Jan, [facility] [place] [facility] [address] [id number] [place] [address]- 8758 Nov, [facility] [place] [facility] [address] [id number], [place] [address]- [address]29 14 Sep, 2009 [facility] [place] [facility] [address] [id number] [place] [address]- 6840 August, [facility] [place] [facility] [address] [id number] [place] [address]- 9011 30 Mar, 2009 [facility] [place] [facility] [address] [id number], [place] [address] 2540 07 Mar, 2009 [facility] [place] [facility] [address] [id number], [place] [address]681 Feb, [facility] [id number] [address]448 Feb, [facility] [id number], [place] [address] 1482 Feb, [facility] [id number], [place] [address] 6260 Feb, [facility] [id number], [place] [address] 2943 Feb, [facility] [id number], [place] [address]- 6073 Jan, [facility] [id number], [place] [address]- 9708 Jan, [facility] [id number], [place] [address] 8716 Jan, [facility] [id number], [place] [address]- 2393 Jan, [facility] [id number], [place] [address]- 6915 Nov, [facility] [id number], [place] [address]- 8759 Sep, [facility] [id number] [place] [address] 8013 August, [facility] [id number], [place] [address]- 5799 Jul, [facility] [id number], [place] [address] 1517 May, IMMUNIZATIONS No Known Immunizations SOCIAL HISTORY Never Assessed REASON FOR VISIT Requests return call PLAN OF CARE VITAL SIGNS MEDICATIONS Unknown [...] Knee Surgery 07/16/17 Hospitalization History [facility] [place]- left hand/wrist swelling 10/09/2017
--- OUTSIDE RECORDS SUMMARY | 2018-01-01 11:27 | XMS REPORT ---
Author Author SENAIT DUNLAP [facility] Address [address] [place] [address] Care Team Providers Care Order Takers Supervisor Name Role Phone SENAIT DUNLAP Unavailable PROBLEMS Type Condition ICD9-CM Code QER84-DO Code Onset Dates Condition Status SNOMED Code Problem 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 Active 98149679 Problem Colon polyp K63.5 Active 89216802 Problem Screening breast examination Z12.39 Active 581865158 Problem Bilateral low back pain without sciatica M54.5 Active 723858094 Problem Postmenopausal Z78.0 Active 76321191 Problem Essential tremor G25.0 Active 00749824 Problem Osteopenia M85.80 Active 676000979 Problem Hyperlipidemia E78.5 Active 20826311 Problem Cigarette nicotine dependence without complication F17.210 Active 29334271 Problem Vascular dementia without behavioral disturbance F01.50 Active [id number] Problem Arthritis M19.90 Active 3494951 Problem Chronic atrial fibrillation I48.2 Active 938154904 Problem Dementia without behavioral disturbance, unspecified dementia type F03.90 Active 88352207 Problem Other chronic pancreatitis K86.1 Active 166163343 Problem Xeroderma Q80.9 Active 94923688 Problem Chronic obstructive pulmonary disease with acute lower respiratory infection J44.0 Active 026918248 Problem Type 2 diabetes mellitus with diabetic neuropathy, without long-term current use of insulin E11.40 Active 91489010 Problem Atherosclerosis of [place] artery of both lower extremities with intermittent claudication I70.213 Active 667735425797805 Problem Hammertoe of right foot M20.41 Active 337065293 Problem Hammertoe of left foot M20.42 Active 006474790 Problem Migraine without aura and with status migrainosus, not intractable G43.001 Active 316683693 Problem Migraine without aura and without status migrainosus, not intractable G43.009 Active 441997860 Problem Major depressive disorder, recurrent episode, moderate F33.1 Active 516604741 Problem Unspecified psychosis F29 Active 38929665 Problem Cervicalgia M54.2 Active 2852645971677 Problem Diabetic polyneuropathy associated with type 2 diabetes mellitus E11.42 Active 53513681 Problem COPD (chronic obstructive pulmonary disease) J44.9 Active 18845160 Problem Atherosclerotic heart disease of [place]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 I25.118 Active 2726151391555 Problem Gastroparesis K31.84 Active 024232014 Problem Stress incontinence of urine N39.3 Active 09780475 Problem Osteoporosis M81.0 Active 98249937 Problem Controlled type 2 diabetes mellitus without complication, without long -term current use of insulin E11.9 Active 432229403 Problem Barretts esophagus K22.70 Active 804942420 Problem Chronic fatigue R53.82 Active 13938291 Problem History of common bile duct surgery Z98.89 Active 788266565 Problem Bipolar affective disorder, currently depressed, moderate F31.32 Active 083973635 Problem Generalized anxiety disorder F41.1 Active 882788103 Problem Gastroesophageal reflux disease, esophagitis presence not specified K21.9 Active 110747998 Problem Coronary artery disease involving [place] coronary artery of [place] 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 I25.118 Active 4623338353502 Problem Postconcussion syndrome F07.81 Active 73354152 Problem Chronic pain syndrome G89.4 Active 891226215 Problem Type 2 diabetes mellitus with diabetic peripheral angiopathy without gangrene E11.51 Active 091581312 Problem Paroxysmal atrial fibrillation I48.0 Active 339042493 Problem Unspecified atherosclerosis of [place] arteries of extremities, unspecified extremity I70.209 Active 172019007818923 Problem Acute exacerbation of chronic obstructive pulmonary disease (COPD) J44.1 Active 099767428 Problem Crohn''s disease without complication, unspecified gastrointestinal tract location K50.90 Active 57898375 ALLERGIES No Information ENCOUNTERS Encounter Location Date Diagnosis [facility] [address] [facility] [id number] [address] Feb, [facility] [address] [facility] [id number] [address] Nov, [facility] [address] [facility] [id number] [address] Nov, Onychomycosis B35.1 ; Hammertoe of left foot M20.42 ; Hammertoe of right foot M20.41 and Type 2 diabetes mellitus with diabetic neuropathy, without long-term current use of insulin E11.40 [facility] [place] [id number] [address] 60052- 8305 Nov, [place] [id number] [address] 22674- 8966 Nov, Bronchitis J40 [place] [place] [id number] [address] 01015- 5464 Oct, [place] [id number] [address] 88932- 7079 Oct, Bipolar affective disorder, currently depressed, moderate F31.32 ; Vascular dementia without behavioral disturbance F01.50 and Generalized anxiety disorder F41.1 [place] [place] [id number] [address] 00297- 3420 Oct, [place] [place] [id number] [address] 42997- 9632 Oct, [place] [id number] [address] 68914- 4994 Oct, Edema of both legs R60.0 [place] [id number] [address] 44940- 7686 Oct, [place] [id number] [address] 81464- 0279 Sep, [place] [id number] [address] 25435- 9535 Sep, [place] [id number] [address] 99817- 1660 Sep, [place] [id number] [address] 37491- 4553 Sep, Encounter for well woman exam with routine gynecological exam Z01.419 ; Screening for STDs (sexually transmitted diseases) Z11.3 ; Screening breast examination Z12.31 and Overweight (BMI 25.0-29.9) E66.3 [facility] [address] [address] Sep, [facility] [id number] [address] 73799- 3831 Sep, [facility] [id number] [address] 34111- 2072 Sep, [facility] [id number] [address] 90906- 6907 August, [facility] [id number] [address] 27656- 8991 August, [facility] [id number] [address] 64404- 4353 August, Type 2 diabetes mellitus with diabetic neuropathy, without long-term current use of insulin E11.40 and Sprain of right ankle, unspecified ligament, initial encounter S93.401A [facility] [id number] [address] 06571- 9934 August, [facility] [id number] [address] 25347- 7127 August, [facility] [id number] [place] [address] 37508- 3373 August, [facility] [id number] [address] 50899- 0593 August, Gastroesophageal reflux disease, esophagitis presence not specified K21.9 [facility] [address] [address] 39[address] August, [facility] [id number] [place] [address] 92034- 7315 August, [facility] [address] [address] 4818 August, [facility] [id number] [address] 66678- 9437 August, Type 2 diabetes mellitus with diabetic neuropathy, without long-term current use of insulin E11.40 and Elevated liver enzymes R74.8 [facility] [id number] [address] 09506- 7448 Jul, [facility] [id number] [place] [address] 05890- 2199 Jul, Cough R05 [facility] [id number] [address] 45942- 5986 Jul, [facility] [id number] [address] 46843- 3553 Jul, [facility] [id number] [place] [address] 12355- 8380 Jul, Bipolar affective disorder, currently depressed, moderate F31.32 ; Vascular dementia without behavioral disturbance F01.50 and Generalized anxiety disorder F41.1 [facility] [place] [id number] [address] 29930- 5247 Jul, [facility] [id number] [address] 97118- 5726 Jul, Type 2 diabetes mellitus with diabetic neuropathy, without long-term current use of insulin E11.40 and Elevated liver enzymes R74.8 [facility] [id number] [place] [address] 88197- 6219 Jul, [facility] [id number] [address] 18315- 8926 Jul, [facility] [id number] [address] 30848- 9097 Jul, [facility] [id number] [place] [address] 21882- 4747 Jul, Post-menopausal Z78.0 [facility] [id number] [address] 53374- 3389 Jul, Stress incontinence of urine N39.3 [facility] [id number] [address] 94599- 5962 Jul, [facility] [address] 58371- 0720 Jul, [facility] [id number] [address] 67552- 6283 Jul, Stress incontinence of urine N39.3 and Cough R05 [facility] [address] 40228- 3624 Jul, [facility] [id number] [address] 41556- 1012 Jul, [facility] [address] 31350- 0090 Jul, [facility] [address] 39499- 4630 Jul, Gastroesophageal reflux disease, esophagitis presence not specified K21.9 [facility] [id number] [address] 15107- 4557 Jun, Diabetic polyneuropathy associated with type 2 diabetes mellitus E11.42 [place] [place] [id number] [address] 98028- 7800 Jun, Diabetic polyneuropathy associated with type 2 diabetes mellitus E11.42 ; Coronary artery disease involving [place] coronary artery of [place] 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 I25.118 and Paroxysmal atrial fibrillation I48.0 [facility] [id number] [address] 81619- 9199 Jun, [facility] [id number] [address] 00660- 4016 Jun, [facility] [id number] [address] 90695- 2521 Jun, Gastroenteritis K52.9 [facility] [address] 43108- 4154 Jun, Gastroenteritis K52.9 [facility] [address] [address]- 8650 Jun, [facility] [id number] [address] 19130- 1426 Jun, [facility] [id number] [address] 40631- 2093 Jun, Sprain of right ankle, unspecified ligament, initial encounter S93.401A ; Type 2 diabetes mellitus with diabetic neuropathy, without long-term current use of insulin E11.40 ; Atherosclerosis of [place] artery of both lower extremities with intermittent claudication I70.213 ; Atherosclerotic heart disease of [place]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 I25.118 ; Chronic atrial fibrillation I48.2 and Crohn''s disease without complication, unspecified gastrointestinal tract location K50.90 [facility] [id number] [address] 92168 -3635 17 Jun, 2017 Cough R05 and Chronic obstructive pulmonary disease with acute lower respiratory infection J44.0 [facility] [id number] [address] 35598- 9031 16 Jun, 2017 [facility] [id number] [address] 59351- 7620 15 Jun, 2017 Coughing R05 ; Unspecified atherosclerosis of [place] arteries of extremities, unspecified extremity I70.209 ; Type 2 diabetes mellitus with diabetic peripheral angiopathy without gangrene E11.51 ; Crohn''s disease without complication, unspecified gastrointestinal tract location K50.90 ; Other chronic pancreatitis K86.1 and Chronic atrial fibrillation I48.2 [facility] [address] [address] Jun, [facility] [id number] [address] 21724- 0767 06 Jun, 2017 Bipolar affective disorder, currently depressed, moderate F31.32 ; Vascular dementia without behavioral disturbance F01.50 and Generalized anxiety disorder F41.1 [facility] [id number] [address] 71738- 1734 May, Generalized anxiety disorder F41.1 [facility] [id number] [address] 52046- 2256 May, [facility] [id number] [address] 48790- 3316 May, [facility] [id number] [address] 78394- 3334 May, Coughing R05 [facility] [id number] [address] 34799- 8381 May, [facility] [id number] [address] 04454- 3838 May, Bipolar affective disorder, currently depressed, moderate F31.32 ; Vascular dementia without behavioral disturbance F01.50 and Generalized anxiety disorder F41.1 [facility] [id number] [address] 85795- 3674 Apr, Generalized anxiety disorder F41.1 [facility] [id number] [address] 45097- 4102 Apr, [facility] [id number] [address] 51662- 4624 Apr, Vascular dementia without behavioral disturbance F01.50 ; Generalized anxiety disorder F41.1 and Bipolar affective disorder, currently depressed, moderate F31.32 [facility] [id number] [address] 86112- 0267 Apr, Generalized anxiety disorder F41.1 [facility] [id number] [address] 10525 -8932 Apr, Cough R05 and Acute exacerbation of chronic obstructive pulmonary disease (COPD) J44.1 [facility] [id number] [address] 52471- 8299 Apr, [facility] [id number] [address] 40731 -1843 Mar, Cough R05 and Cigarette nicotine dependence without complication F17.210 [place] [address] 64545- 6110 Mar, [place] [address] 06519- 9646 Feb, Generalized anxiety disorder F41.1 ; Major depressive disorder, recurrent episode, moderate F33.1 ; Vascular dementia without behavioral disturbance F01.50 and Unspecified psychosis F29 [facility] [place] [id number] [address] 01313- 6946 Feb, [facility] [address] 95125- 2977 Feb, [place] [address] 99572- 9069 Feb, Generalized anxiety disorder F41.1 [place] [address] 19902- 1866 Feb, Generalized anxiety disorder F41.1 [facility] [place] [id number] [address] 82558- 0049 Feb, Dizziness R42 ; Chronic fatigue R53.82 ; Postconcussion syndrome F07.81 ; Fall, initial encounter W19.XXXA and Disorientation R41.0 [place] [address] 29226- 2730 Feb, Postconcussion syndrome F07.81 ; Injury of head, initial encounter S09.90XA ; Fall, initial encounter W19.XXXA ; Disorientation R41.0 and Acute cystitis with hematuria N30.01 [facility] [place] [id number] [address] 06443- 9836 Jan, Gastroesophageal reflux disease, esophagitis presence not specified K21.9 ; Post-menopausal Z78.0 and Migraine without aura and without status migrainosus, not intractable G43.009 [place] [address] [place] [address]- [address] Jan, [facility] [id number] [address] 68435- 0708 Jan, Generalized anxiety disorder F41.1 ; Major depressive disorder, recurrent episode, moderate F33.1 ; Vascular dementia without behavioral disturbance F01.50 and Unspecified psychosis F29 [facility] [id number] [address] 63869- 7875 Jan, Pneumonia of left lower lobe due to infectious organism J18.1 [facility] [id number] [address] 18182- 2963 Jan, Migraine without aura and with status migrainosus, not intractable G43.001 [facility] [id number] [address] 85881 -9894 Jan, Migraine without aura and without status migrainosus, not intractable G43.009 [facility] [id number] [place] [address] 96755- 7781 Dec, Hematoma T14.8 [facility] [id number] [place] [address] 19469- 8532 Dec, [facility] [id number] [address] 17836 -1614 Nov, Fatigue, unspecified type R53.83 [facility] [id number] [address] 48941- 5241 Nov, Scabies B86 and Coronary artery disease involving [place] coronary artery of [place] 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 I25.118 [facility] [id number] [address] 26551- 2432 Nov, [facility] [id number] [address] 33056- 1532 Nov, [facility] [id number] [address] 36779- 6350 Oct, [facility] [id number] [address] 26378- 7309 Oct, Generalized anxiety disorder F41.1 and Major depressive disorder, recurrent episode, moderate F33.1 [facility] [id number] [address] 81113- 8663 Oct, Cramp of both lower extremities R25.2 [facility] [id number] [place] [address] 05195- 7957 Oct, Leg cramps R25.2 [facility] [id number] [place] [address] 05033- 8666 Oct, Chronic pain syndrome G89.4 [facility] [place] [id number] [address] 31223- 7682 Oct, [facility] [place] [id number] [address] 74791- 5188 Oct, [facility] [id number] [place] [address] 63941- 3992 Oct, Routine gynecological examination Z01.419 and Screening for breast cancer Z12.31 [place] [id number] [address] 07651- 1922 Sep, Diarrhea R19.7 [facility] [id number] [place] [address] 05761- 1994 Sep, Back pain M54.9 [facility] [id number] [address] 03498- 9734 Sep, [facility] [id number] [place] [address] 26081- 3221 Sep, [facility] [id number] [address] 52565 -0467 August, Xeroderma Q80.9 [facility] [id number] [address] 71640- 7884 August, Dementia without behavioral disturbance, unspecified dementia type F03.90 [place] [place] [id number] [place] [address] 98935- 1584 August, Chronic pain syndrome G89.4 [place] [id number] [address] 93051- 6459 August, [place] [address] 39350- 5314 August, Hyperlipidemia E78.5 ; Other fatigue R53.83 and Other specified hypotension I95.89 [facility] [address] 22895 -2912 August, Dysuria R30.0 ; Other fatigue R53.83 and Other specified hypotension I95.89 [place] [address] 30132- 6199 August, [place] [address] 15751- 2437 Jul, Pain in left knee M25.562 and Gastroenteritis K52.9 [place] [address] 65523- 8245 Jul, [place] [address] 46876- 9491 Jul, Diarrhea R19.7 [facility] [place] [id number] [address] 59353 -0237 Jul, Spider bite, accidental or unintentional, initial encounter T63.301A [place] [address] 46689- 7545 Jul, Primary osteoarthritis of right knee M17.11 and Arthritis M19.90 [place] [id number] [address] 59199- 2343 Jul, Generalized anxiety disorder F41.1 and Major depressive disorder, recurrent episode, moderate F33.1 [place] [address] 63588- 6741 07 Jul, 2016 Type 2 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 and Temporal headache R51 [facility] [address] 38486- 9244 06 Jul, 2016 Back pain M54.9 [facility] [address] 04996- 2624 05 Jul, 2016 [facility] [address] 29532- 2607 Jul, [facility] [address] 21763- 7034 30 Jun, 2016 Nausea R11.0 [facility] [address] 97917 -9808 23 Jun, 2016 Acute suppurative otitis media of both ears without spontaneous rupture of tympanic membranes, recurrence not specified H66.003 and COPD exacerbation J44.1 [place] [address] 15117- 9016 Jun, Generalized anxiety disorder F41.1 [place] [address] 38057- 9165 16 Jun, 2016 [facility] [place] [address] 47003 -5993 Jun, [facility] [address] 75000 -8924 Jun, Shortness of breath R06.02 and COPD exacerbation J44.1 [place] [address] 07902- 4172 10 Jun, 2016 Eczema, unspecified type L30.9 [place] [address] 19174- 8356 09 Jun, 2016 [place] [address] 13319- 9775 May, [place] [address] [place] [address]- 0319 May, Muscle cramping R25.2 [place] [address] 34209- 4054 May, [facility] [address] 69295- 5433 Apr, Diarrhea R19.7 [facility] [address] 51949- 5341 Apr, [place] [address] 61123- 0734 Apr, Chronic pain syndrome G89.4 [place] [address] 76324- 8370 Apr, Cramp of both lower extremities R25.2 and Vascular dementia without behavioral disturbance F01.50 [place] [address] 55062- 4715 Apr, Type 2 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 and Cigarette nicotine dependence without complication F17.210 [place] [address] 54996- 4402 Mar, Generalized anxiety disorder F41.1 [place] [address] 37862- 4652 Feb, Generalized anxiety disorder F41.1 and Major depressive disorder, recurrent episode, moderate F33.1 [facility] [id number] [address] 16066- 7789 Feb, [facility] [address] 47929 -9752 Feb, Dysuria R30.0 and Acute cystitis with hematuria N30.01 [facility] [id number] [address] 40468- 7023 Jan, [facility] [address] 69163- 8243 Jan, [facility] [id number] [address] 06305- 6648 Jan, [facility] [id number] [address] 45909- 6791 Jan, [facility] [id number] [address] 35414 -7136 10 Jan, 2016 Wasp sting, accidental or unintentional, initial encounter T63.461A [facility] [id number] [address] 71341- 3782 06 Jan, 2016 Encounter for immunization Z23 [place] [id number] [address] 96180- 0588 05 Jan, 2016 [place] [id number] [address] 56178- 3822 Jan, [facility] [id number] [address] 50040- 5121 28 Dec, 2015 Generalized anxiety disorder F41.1 and Major depressive disorder, recurrent episode, moderate F33.1 [place] [id number] [address] 86372- 1950 21 Dec, 2015 Routine gynecological examination Z01.419 ; Postmenopausal Z78.0 ; Screening breast examination Z12.39 ; Osteopenia M85.80 and Breast cancer screening Z12.39 [facility] [id number] [address] 91443- 5662 20 Dec, 2015 [facility] [id number] [address] 32059- 5189 19 Dec, 2015 [place] [id number] [address] 73260- 3188 16 Dec, 2015 [facility] [id number] [address] 22696- 2345 16 Dec, 2015 [facility] [id number] [address] 07017- 3431 Dec, [facility] [address] [address]- 9350 Dec, [facility] [address] [address]- 1785 Nov, [facility] [address] [address] Nov, Cough R05 ; Other viral agents as the cause of diseases classified elsewhere B97.89 and Acute upper respiratory infection, unspecified J06.9 [facility] [id number] [address]- 8208 Nov, [facility] [id number] [address] 40934- 2242 Nov, [facility] [address] [address]- 6120 Nov, [facility] [id number] [address]- 7974 Nov, [facility] [address] [address]- 2487 Nov, [facility] [address], [place] [address]- 7181 Oct, [facility] [address] [address]- 9267 Oct, [facility] [address], [place] [address]- 5034 Oct, [facility] [address], [place] [address]- 4579 Oct, Chronic pain syndrome G89.4 [facility] [address] [address]- 8081 Sep, Generalized anxiety disorder F41.1 and Major depressive disorder, recurrent episode, moderate F33.1 [facility] [id number] [address] 29223- 3531 Sep, [facility] [address], [place] [address]- 9675 Sep, [facility] [id number] [address] 06773- 2221 14 Sep, 2015 Generalized anxiety disorder F41.1 [facility] [id number] [address] 31848- 9774 13 Sep, 2015 Cramp of both lower extremities R25.2 and Cervicalgia M54.2 [facility] [id number] [address] 41178- 8321 06 Sep, 2015 Generalized anxiety disorder F41.1 [place] [id number] [address] 47744- 0652 Sep, [facility] [id number] [address] 78444 -2546 August, Rash R21 ; Itching L29.9 and Allergic response, subsequent encounter T78.40XD [facility] [id number] [address] 42872- 9575 August, Primary insomnia F51.01 [facility] [id number] [address] 32440 -7724 August, Rash R21 ; Itching L29.9 and Allergic response, initial encounter T78.40XA [facility] [id number] [address] 65424- 2301 August, [facility] [id number] [address] 13884- 0751 August, Cramp of both lower extremities R25.2 [facility] [id number] [address] 92031- 0311 August, Back pain M54.9 [facility] [id number] [address] 13624- 3711 August, [facility] [address], [place] [address]- 4602 August, [facility] [id number] [address] 22093 -1636 August, Cramp of both lower extremities R25.2 [facility] [id number] [address] 89456- 3548 August, [facility] [id number] [address] 44704- 1592 August, Syncope R55 ; Paroxysmal atrial fibrillation I48.0 ; Dementia without behavioral disturbance, unspecified dementia type F03.90 and Chronic pain syndrome G89.4 [facility] [id number] [address] 51397- 6213 August, Type 2 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 and Syncope R55 [facility] [id number] [address] 73544- 4202 Jul, [facility] [id number] [address] 04259- 6784 Jul, [facility] [id number] [address] 23998- 6102 Jul, [facility] [id number] [address] 60139- 9937 Jul, [facility] [id number] [address] 53378- 0190 Jul, [facility] [id number] [address] 63905- 5854 Jul, UTI (urinary tract infection) N39.0 [facility] [id number] [address] 94426- 7169 Jul, [facility] [id number] [address] 94470- 4083 Jul, Major depressive disorder, recurrent episode, moderate F33.1 and Generalized anxiety disorder F41.1 [facility] [address] [address]- 1350 14 Jul, 2015 Generalized anxiety disorder F41.1 [facility] [address], [place] [address]- 5216 14 Jul, 2015 Diarrhea R19.7 [facility] [address] [address] 2546 14 Jul, 2015 [facility] [id number] [address] 20929- 6360 Jun, [facility] [id number] [address] 98581- 5471 Jun, Eczema L30.9 [facility] [address] [address]- 1533 Jun, [facility] [id number] [address] 90013- 4902 Jun, COPD (chronic obstructive pulmonary disease) J44.9 [facility] [address], [place] [address]- 8386 Jun, [facility] [address], [place] [address]- 6710 Jun, Major depressive disorder, recurrent episode, moderate F33.1 and Generalized anxiety disorder F41.1 [facility] [address] [address]- 1846 May, [facility] [address] [address]- 2543 May, UTI (urinary tract infection) N39.0 [facility] [address] [address]- 7276 17 May, 2015 [facility] [address] [address]- 1708 08 May, 2015 [facility] [address], [place] [address]- 7576 May, [facility] [address], [place] [address]- 1636 May, [facility] [address] 8140 Apr, Major depressive disorder, recurrent episode, moderate F33.1 and Generalized anxiety disorder F41.1 [facility] [id number] [address] 90837- 2520 Apr, COPD (chronic obstructive pulmonary disease) J44.9 [facility] [id number] [place] [address] 50575- 1850 Apr, [facility] [id number] [address] 81114- 4903 Apr, Atrial flutter I48.92 [facility] [id number] [address] 20965- 9291 Apr, [facility] [id number] [address] 38241- 1263 Apr, [facility] [id number] [place] [address] 18320- 9361 Mar, [facility] [address], [place] [address]- 5618 Mar, [facility] [address], [place] [address]- 6798 Mar, [facility] [address], [place] [address]- 9416 Mar, Hyperlipidemia E78.5 ; Type 2 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 ; Major depressive disorder, recurrent episode, moderate F33.1 and Chronic pain syndrome G89.4 [facility] [address] [address]- 2146 Mar, [facility] [address], [place] [address]- 3487 Mar, [facility] [address], [place] [address]- 8114 Mar, [facility] [id number] [address] 19292- 1447 Mar, [facility] [id number] [address] 55441- 0062 Feb, COPD (chronic obstructive pulmonary disease) J44.9 and Back pain M54.9 [facility] [address] [facility] [id number] [address] 04114- 2705 Feb, [facility] [id number] [address] 96575- 8858 Feb, [facility] [id number] [address] 49992- 7325 Feb, [facility] [id number] [address] 49564- 5901 Feb, [facility] [id number] [address] 02080- 1645 Feb, [facility] [id number] [address] 60958- 1193 Feb, [facility] [id number] [address] 57343- 7304 Feb, [facility] [id number] [address] 36953- 0651 Feb, [facility] [id number] [address] 17490- 8206 Feb, Diabetes E11.9 ; Back pain M54.9 and COPD (chronic obstructive pulmonary disease) J44.9 [facility] [id number] [address]- 1921 Jan, [facility] [address], [place] [address]- 4372 Jan, Major depression, recurrent F33.9 and Generalized anxiety disorder F41.1 [facility] [id number] [address] 96667- 5705 Jan, Chronic pain G89.29 [facility] [id number] [address] 64269- 6579 Jan, [facility] [id number] [address] 09395- 5066 Jan, [facility] [id number] [address] 47635- 3614 Jan, [facility] [id number] [address] 62439- 1800 Jan, [facility] [id number] [address] 66636- 3575 Jan, Nicotine dependence F17.200 [facility] [id number] [address] 19933- 8126 Jan, Nicotine dependence F17.200 and Back pain M54.9 [facility] [id number] [address] 39775- 1033 Jan, [facility] [id number] [address] 41538- 9910 28 Dec, 2014 [facility] [id number] [address] 97380- 5450 25 Dec, 2014 Anxiety, generalized 300.02 and Major depression, recurrent 296.30 [facility] [id number] [address] 91367- 1507 24 Dec, 2014 [facility] [id number] [address] 69892- 4926 21 Dec, 2014 [facility] [id number] [address] 32886- 4601 17 Dec, 2014 [facility] [id number] [address] 38862- 8514 15 Dec2014 [facility] [address], [place] [address]- 254 14 Dec, 2014 [facility] [id number] [place] [address] 89415 2543 11 Dec, 2014 [facility] [address] [address] 2549 10 Dec, 2014 [facility] [id number] [place] [address] 56281 2545 08 Dec, 2014 Skin tear 879.8 [facility] [id number] [address] 83999 2547 08 Dec, 2014 Routine gynecological examination V72.31 ; Breast cancer screening V76.10 and Family history of breast cancer in first degree relative V16.3 [facility] [id number] [address] 64982- 3072 Dec, [facility] [id number] [address] 79101- 9844 Dec, [facility] [id number] [address] 83901- 7078 Nov, [facility] [id number] [address] 62029- 5203 Nov, [facility] [address], [place] [address]- 6967 Nov, Poor balance 781.99 and Vascular dementia, uncomplicated 290.40 [facility] [address], [place] [address]- 2385 Nov, [facility] [id number] [address] 55530- 1644 Nov, Major depression, recurrent 296.30 and Anxiety, generalized 300.02 [facility] [id number] [address] 75373- 254 Nov, [facility] [id number] [place] [address] 86792- 1816 Nov, [facility] [address], [place] [address]- 6493 Nov, [facility] [id number] [address] 47196- 8499 Nov, [facility] [id number] [address]- 5671 Nov, Vascular dementia, uncomplicated 290.40 and Lumbago 724.2 [facility] [id number] [address] 34714- 8168 Nov, [facility] [id number] [address] 68383- 3880 Nov, [facility] [id number] [address] 97019- 3777 Nov, [facility] [id number] [address] 53469- 6749 Oct, [facility] [address], [place] [address]- 4307 Oct, [facility] [id number] [address] 64972- 8664 Oct, [facility] [id number] [address]- 2839 Oct, COPD (chronic obstructive pulmonary disease) 496 and Hyperlipidemia 272.4 [facility] [address], [place] [address]- 5422 Oct, Major depression, recurrent 296.30 and Anxiety, generalized 300.02 [facility] [address], [place] [address]- 0997 Oct, [facility] [address], [place] [address]- 0450 Oct, [facility] [address], [place] [address]- 8005 Oct, [facility] [address], [place] [address]- 7686 Sep, Lumbago 724.2 and Anxiety state, unspecified 300.00 [facility] [id number] [address]- 1754 Sep, [facility] [id number] [address]- 4264 Sep, [facility] [id number] [address] 00236- 1907 August, [facility] [id number] [address] 272910- 6830 August, Major depression, recurrent 296.30 ; Anxiety, generalized 300.02 and No condition on Dongola II V71.09 [facility] [id number] [address]- 9021 August, [facility] [id number] [address]- 7178 August, [facility] [id number] [address]- 4655 Jul, [facility] [id number] [address]- 5217 Jul, [facility] [address], [place] [address]- 0240 Jul, [facility] [address], [place] [address]- 8228 Jun, [facility] [address], [place] [address]- 3580 Jun, [facility] [id number] [address]- 6301 Jun, [facility] [address], [place] [address]- 4118 Jun, [facility] [id number] [address]- 9695 26 Jun, 2014 [facility] [place] [facility] [address] [id number] [place] [address]- 1971 23 Jun, 2014 [facility] [place] [facility] [address] [id number] [place] [address]- 0176 23 Jun, 2014 [facility] [place] [facility] [address] [id number] [place] [address]- 3056 17 Jun, 2014 [facility] [place] [facility] [address] [id number] [place] [address]- 5316 13 Jun, 2014 [facility] [place] [facility] [address] [id number] [place] [address]- 4374 13 Jun, 2014 [facility] [place] [facility] [address] [id number] [place] [address]- 2408 10 Jun, 2014 [facility] [place] [facility] [address] [id number] [place] [address]- 1858 10 Jun, 2014 [facility] [place] [facility] [address] [id number] [place] [address]- 7740 Jun, [facility] [place] [facility] [address] [id number] [place] [address]- 0786 Jun, 2014 [facility] [place] [facility] [address] [facility] [id number] [place] [address]- 1404 Jun, [facility] [place] [facility] [address] [id number] [place] [address]- 2472 Jun, [facility] [place] [facility] [address] [id number] [place] [address]- 1573 May, 2014 [facility] [place] [facility] [address] [id number] [place] [address]- 2288 May, 2014 [facility] [place] [facility] [address] [id number] [place] [address]- 7216 May, [facility] [place] [facility] [address] [id number] [place] [address]- 1534 May, 2014 [facility] [place] [facility] [address] [id number] [place] [address]- 8661 May, 2014 [facility] [place] [facility] [address] [id number] [place] [address]- 4716 May, 2014 [facility] [place] [facility] [address] [facility] [id number] [place] [address]- 6738 May, 2014 [facility] [place] [facility] [address] [id number] [place] [address]- 4306 May, 2014 [facility] [place] [facility] [address] [id number] [place] [address]- 6977 May, 2014 [facility] [place] [facility] [address] [id number] [place] [address]- 3075 May, 2014 [facility] [place] [facility] [address] [facility] [id number] [place] [address]- 1293 May, 2014 [facility] [place] [facility] [address] [id number] [place] [address]- 1037 May, 2014 [facility] [place] [facility] [address] [id number] [place] [address]- 4152 May, [facility] [place] [facility] [address] [facility] [id number] [place] [address] May, [facility] [place] [facility] [address] [facility] [id number] [place] [address] Apr, [facility] [place] [facility] [address] [facility] [id number] [place] [address] Apr, [facility] [place] [facility] [address] [id number] [place] [address] Apr, [facility] [place] [facility] [address] [id number] [place] [address] Apr, [facility] [place] [facility] [address] [facility] [id number] [place] [address] Apr, [facility] [place] [facility] [address] [id number] [place] [address] Apr, [facility] [address] [id number] [place] [address] Apr, [facility] [place] [facility] [address] [id number] [place] [address] Apr, [facility] [place] [facility] [address] [id number] [place] [address] Apr, [facility] [place] [facility] [address] [id number] [place] [address] Apr, [facility] [place] [facility] [address] [id number] [place] [address] Apr, [facility] [place] [facility] [address] [id number] [place] [address] Apr, [facility] [place] [facility] [address] [id number] [place] [address] Mar, [facility] [address] [id number] [place] [address] 31 Mar, 2014 [facility] [place] [facility] [address] [id number] [place] [address] Mar, [facility] [place] [facility] [address] [id number] [place] [address] 30 Mar, 2014 [facility] [place] [facility] [address] [id number] [place] [address] 29 Mar, 2014 [facility] [place] [facility] [address] [id number] [place] [address] 29 Mar, 2014 [facility] [place] [facility] [address] [id number] [place] [address] Mar, [facility] [place] [facility] [address] [id number] [place] [address] Mar, [facility] [place] [facility] [address] [id number] [place] [address] 15 Mar, 2014 [facility] [place] [facility] [address] [id number] [place] [address] 15 Mar, 2014 [facility] [place] [facility] [address] [id number] [place] [address] Mar, [facility] [place] [facility] [address] [id number] [place] [address] 15 Mar, 2014 [facility] [place] [facility] [address] [id number] [place] [address] Mar, [facility] [place] [facility] [address] [id number] [place] [address] Mar, [facility] [place] [facility] [address] [id number] [place] [address] Mar, [facility] [place] [facility] [address] [id number] [place] [address] 1535 Mar, [facility] [place] [facility] [address] [id number] [place] [address] 3799 Mar, [facility] [place] [facility] [address] [id number] [place] [address] Mar, [facility] [place] [facility] [address] [id number] [place] [address] 6994 Mar, [facility] [place] [facility] [address] [id number] [place] [address]- 0961 Mar, [facility] [place] [facility] [address] [id number][place] [address]- 00[address] Feb, [facility] [place] [facility] [address] [id number] [place] [address] 7339 Feb, [facility] [place] [facility] [address] [id number] [place] [address]- 4904 Feb, [facility] [place] [facility] [address] [id number] [place] [address]- 5330 Feb, [facility] [place] [facility] [address] [id number] [place] [address]- 0452 Feb, [facility] [place] [facility] [address] [id number] [place] [address]- 2232 Feb, [facility] [place] [facility] [address] [id number] [place] [address]- 3967 Feb, [facility] [place] [facility] [address] [id number] [place] [address]- 3194 Feb, [facility] [place] [facility] [address] [id number] [place] [address]- 9331 Feb, [facility] [place] [facility] [address] [id number] [place] [address]- 5063 Feb, [facility] [place] [facility] [address] [id number] [place] [address]- 3526 Feb, [facility] [place] [facility] [address] [id number] [place] [address]- 0477 Feb, [facility] [place] [facility] [address] [id number] [place] [address]- 6200 Feb, [facility] [place] [facility] [address] [id number] [place] [address]- 8698 Feb, [facility] [place] [facility] [address] [facility] [id number] [place] [address]- 1141 Feb, [facility] [place] [facility] [address] [id number] [place] [address]- 9647 Feb, [facility] [place] [facility] [address] [id number], [place] [address] Feb, [facility] [place] [facility] [address] [id number] [place] [address]- 7884 Jan, [facility] [place] [facility] [address] [id number] [place] [address]- 7404 Jan, [facility] [place] [facility] [address] [id number], [place] [address]- 4804 Jan, [facility] [place] [facility] [address] [id number] [place] [address]- 2741 Jan, [facility] [place] [facility] [address] [id number] [place] [address]- 5622 Jan, [facility] [place] [facility] [address] [id number] [place] [address]- 4231 Jan, [facility] [place] [facility] [address] [id number] [place] [address]- 2353 Jan, [facility] [place] [facility] [address] [id number] [place] [address]- 3498 Jan, [facility] [place] [facility] [address] [id number] [place] [address]- 1034 Jan, [facility] [place] [facility] [address] [id number] [place] [address]- 4048 Jan, [facility] [place] [facility] [address] [id number] [place] [address]- 9291 Jan, [facility] [place] [facility] [address] [id number] [place] [address]- 6634 Dec, [facility] [place] [facility] [address] [id number] [place] [address]- 6825 Dec, [facility] [place] [facility] [address] [id number] [place] [address]- 4826 Nov, [facility] [place] [facility] [address] [id number] [place] [address]- 5453 Nov, [facility] [place] [facility] [address] [id number] [place] [address]- 3755 Nov, [facility] [place] [facility] [address] [id number] [place] [address]- 3348 Nov, [facility] [place] [facility] [address] [id number] [place] [address]- 1170 Nov, [facility] [place] [facility] [address] [id number] [place] [address]- 3764 Nov, [facility] [place] [facility] [address] [id number] [place] [address] Nov, [facility] [place] [facility] [address] [id number] [place] [address]- 6474 Oct, [facility] [place] [facility] [address] [id number] [place] [address]- 5490 Oct, [facility] [place] [facility] [address] [id number] [place] [address]- 4112 Oct, [facility] [place] [facility] [address] [id number] [place] [address]- 6517 Oct, [facility] [place] [facility] [address] [id number] [place] [address]- 5080 Sep, [facility] [place] [facility] [address] [id number] [place] [address]- 4000 Sep, [facility] [place] [facility] [address] [id number] [place] [address]- 1123 Sep, [facility] [place] [facility] [address] [id number] [place] [address]- 2777 Sep, [facility] [place] [facility] [address] [id number] [place] [address]- 0190 Sep, [facility] [place] [facility] [address] [id number] [place] [address]- 6712 Sep, [facility] [place] [facility] [address] [id number] [place] [address]- 4397 Sep, [facility] [place] [facility] [address] [id number] [place] [address]- 7321 Sep, [facility] [place] [facility] [address] [id number] [place] [address]- 4611 Sep, [facility] [place] [facility] [address] [id number] [place] [address]- 2143 Sep, [facility] [place] [facility] [address] [id number] [place] [address]- 4101 Sep, [facility] [address] [id number] [place] [address]- 8613 Sep, [facility] [address] [id number] [place] [address]- 2654 Sep, [facility] [address] [id number] [place] [address]- 2743 Sep, [facility] [address] [id number] [place] [address]- 6651 August, [facility] [address] [id number] [place] [address]- 0935 August, [facility] [address] [id number] [place] [address]- 9571 August, [facility] [address] [id number] [place] [address]- 2083 August, [facility] [address] [id number] [place] [address]- 7390 August, [facility] [address] [id number] [place] [address]- 8995 August, [facility] [address] [id number] [place] [address]- 6024 August, [facility] [address] [id number] [place] [address]- 7261 August, [facility] [address] [id number] [place] [address]- 8690 August, [facility] [place] [facility] [address] [id number] [place] [address]- 7595 August, [facility] [place] [facility] [address] [id number] [place] [address]- 0649 August, [facility] [address] [id number] [place] [address]- 7572 August, [facility] [address] [id number] [place] [address]- 4642 August, [facility] [place] [facility] [address] [id number] [place] [address]- 3306 August, [facility] [place] [facility] [address] [id number] [place] [address]- 8044 August, [facility] [place] [facility] [address] [id number] [place] [address]- 3498 August, [facility] [place] [facility] [address] [id number] [place] [address]- 0761 August, [facility] [place] [facility] [address] [id number] [place] [address]- 8522 August, [facility] [place] [facility] [address] [id number] [place] [address]- 1062 August, [facility] [place] [facility] [address] [id number] [place] [address]- 3098 Jul, [facility] [place] [facility] [address] [id number] [place] [address]- 5393 Jul, [facility] [place] [facility] [address] [id number] [place] [address]- 7943 Jul, [facility] [place] [facility] [address] [id number] [place] [address]- 4600 Jul, [facility] [place] [facility] [address] [id number] [place] [address]- 6072 Jun, [facility] [place] [facility] [address] [id number] [place] [address]- 8082 Jun, [facility] [place] [facility] [address] [id number] [place] [address]- 6906 Jun, [facility] [place] [facility] [address] [id number] [place] [address]- 9616 Jun, [facility] [place] [facility] [address] [id number] [place] [address]- 8299 17 Jun, 2013 [facility] [place] [facility] [address] [id number] [place] [address]- 3166 17 Jun, 2013 [facility] [place] [facility] [address] [id number] [place] [address]- 3218 14 Jun, 2013 [facility] [place] [facility] [address] [facility] [id number] [place] [address]- 9892 14 Jun, 2013 [facility] [place] [facility] [address] [id number] [place] [address]- 9765 Jun, [facility] [place] [facility] [address] [id number] [place] [address]- 8187 Jun, [facility] [place] [facility] [address] [facility] [id number] [place] [address]- 6348 May, [facility] [place] [facility] [address] [facility] [id number] [place] [address]- 6138 May, [facility] [place] [facility] [address] [facility] [id number] [place] [address]- 5757 May, [facility] [place] [facility] [address] [facility] [id number] [place] [address]- 0953 27 May, 2013 [facility] [place] [facility] [address] [facility] [id number] [place] [address]- 4633 May, [facility] [place] [facility] [address] [facility] [id number] [place] [address]- 9685 May, [facility] [place] [facility] [address] [facility] [id number] [place] [address]- 8666 20 May, 2013 [facility] [place] [facility] [address] [facility] [id number] [place] [address]- 6001 May, [facility] [place] [facility] [address] [facility] [id number] [place] [address]- 9789 May, [facility] [place] [facility] [address] [facility] [id number] [place] [address]- 4301 18 May, 2013 [facility] [place] [facility] [address] [id number] [place] [address]- 4444 18 May, 2013 [facility] [place] [facility] [address] [id number] [place] [address]- 0726 May, [facility] [place] [facility] [address] [id number] [place] [address]- 5486 May, [facility] [place] [facility] [address] [id number] [place] [address]- 3675 May, [facility] [place] [facility] [address] [id number] [place] [address]- 4562 May, [facility] [place] [facility] [address] [id number] [place] [address]- 0257 May, [facility] [place] [facility] [address] [id number] [place] [address]- 0355 May, [facility] [place] [facility] [address] [id number] [place] [address]- 6832 Apr, [facility] [place] [facility] [address] [id number] [place] [address]- 2825 Apr, [facility] [place] [facility] [address] [id number] [place] [address]- 0848 Apr, [facility] [place] [facility] [address] [facility] [id number] [place] [address]- 0993 Apr, [facility] [place] [facility] [address] [id number], [place] [address]- 6711 Apr, [facility] [place] [facility] [address] [id number] [place] [address]- 3139 Apr, [facility] [place] [facility] [address] [facility] [id number] [place] [address]- 0836 Apr, [facility] [place] [facility] [address] [facility] [id number] [place] [address]- 4291 Mar, [facility] [place] [facility] [address] [id number] [place] [address]- 5383 Mar, [facility] [address] [id number] [place] [address]- 8306 Mar, [facility] [address] [id number] [place] [address]- 5836 Mar, [facility] [address] [id number] [place] [address]- 8331 Mar, [facility] [address] [id number] [place] [address]- 7116 Mar, [facility] [address] [id number] [place] [address]- 1584 Mar, [facility] [address] [id number] [place] [address] Mar, [facility] [address] [id number] [place] [address]- 8576 Mar, [facility] [address] [id number] [place] [address]- 6671 Mar, [facility] [address] [id number] [place] [address]- 3533 Mar, [facility] [address] [facility] [id number] [place] [address]- 7570 Feb, [facility] [address] [id number] [place] [address]- 5209 Feb, [facility] [address] [id number] [place] [address]- 1804 Feb, [facility] [address] [id number] [place] [address]- 1428 Feb, [facility] [address] [id number] [place] [address]- 6899 Feb, [facility] [address] [id number] [place] [address]- 8976 Feb, [facility] [place] [facility] [address] [id number] [place] [address]- 0605 15 Feb, 2013 [facility] [place] [facility] [address] [id number] [place] [address]- 6099 14 Feb, 2013 [facility] [place] [facility] [address] [id number] [place] [address]- 2533 14 Feb, 2013 [facility] [place] [facility] [address] [id number] [place] [address]- 1130 Feb, [facility] [place] [facility] [address] [id number] [place] [address]- 1714 Feb, [facility] [place] [facility] [address] [id number] [place] [address]- 0645 Feb, [facility] [place] [facility] [address] [id number] [place] [address]- 1382 Feb, [facility] [place] [facility] [address] [id number], [place] [address]- 1438 Feb, [facility] [place] [facility] [address] [id number] [place] [address]- 5941 Feb, [facility] [place] [facility] [address] [id number], [place] [address]- 9901 Feb, [facility] [place] [facility] [address] [id number], [place] [address]- 3274 Jan, [facility] [place] [facility] [address] [id number], [place] [address]- 3886 Jan, [facility] [place] [facility] [address] [id number], [place] [address]- 4160 Jan, [facility] [place] [facility] [address] [id number], [place] [address]- 2285 Jan, [facility] [place] [facility] [address] [id number], [place] [address]- 2706 Jan, [facility] [place] [facility] [address] [id number], [place] [address]- 1918 Jan, [facility] [place] [facility] [address] [id number] [place] [address]- 3584 Jan, [facility] [place] [facility] [address] [id number] [place] [address]- 6343 Jan, [facility] [place] [facility] [address] [id number] [place] [address]- 6603 Jan, [facility] [place] [facility] [address] [id number] [place] [address]- 7278 27 Dec, 2012 [facility] [place] [facility] [address] [id number] [place] [address]- 4573 20 Dec, 2012 [facility] [place] [facility] [address] [id number] [place] [address]- 5599 Dec, [facility] [place] [facility] [address] [id number] [place] [address]- 0199 Dec, [facility] [place] [facility] [address] [id number] [place] [address]- 1772 Dec, [facility] [place] [facility] [address] [id number] [place] [address]- 9664 Dec, [facility] [place] [facility] [address] [id number] [place] [address]- 5014 Nov, [facility] [place] [facility] [address] [id number] [place] [address]- 4701 Nov, [facility] [place] [facility] [address] [id number] [place] [address]- 2544 Nov, [facility] [place] [facility] [address] [id number] [place] [address]- 7302 Nov, [facility] [place] [facility] [address] [id number] [place] [address]- 0871 Nov, [facility] [place] [facility] [address] [id number] [place] [address]- 7190 Nov, [facility] [place] [facility] [address] [id number] [place] [address]- 1774 15 Nov, 2012 [facility] [place] [facility] [address] [id number] [place] [address]- 5923 15 Nov, 2012 [facility] [place] [facility] [address] [id number] [place] [address]- 2696 Nov, [facility] [place] [facility] [address] [id number] [place] [address]- 7157 Nov, [facility] [place] [facility] [address] [id number] [place] [address]- 5842 Oct, [facility] [place] [facility] [address] [id number] [place] [address]- 9230 Oct, [facility] [place] [facility] [address] [id number] [place] [address]- 2521 Oct, [facility] [place] [facility] [address] [id number] [place] [address]- 1580 Oct, [facility] [place] [facility] [address] [id number] [place] [address]- 9585 Oct, [facility] [place] [facility] [address] [id number] [place] [address]- 9684 Oct, [facility] [place] [facility] [address] [id number] [place] [address]- 3280 Oct, [facility] [place] [facility] [address] [id number] [place] [address]- 1056 Oct, [facility] [place] [facility] [address] [id number] [place] [address]- 1999 Sep, [facility] [place] [facility] [address] [id number] [place] [address]- 2093 Sep, [facility] [place] [facility] [address] [id number] [place] [address]- 7393 Sep, [facility] [place] [facility] [address] [id number] [place] [address]- 0273 Sep, [facility] [address] [id number] [place] [address]- 6738 Sep, [facility] [place] [facility] [address] [id number] [place] [address]- 6986 Sep, [facility] [place] [facility] [address] [id number] [place] [address] Sep, [facility] [place] [facility] [address] [id number] [place] [address] Sep, [facility] [address] [id number] [place] [address] August, [facility] [place] [facility] [address] [id number] [place] [address] August, [facility] [place] [facility] [address] [id number] [place] [address] August, [facility] [place] [facility] [address] [id number] [place] [address] August, [facility] [place] [facility] [address] [id number] [place] [address] August, [facility] [place] [facility] [address] [id number] [place] [address] Jul, [facility] [place] [facility] [address] [id number] [place] [address] Jul, [facility] [place] [facility] [address] [id number] [address] Jul, [facility] [place] [facility] [address] [id number] [place] [address] Jul, [facility] [place] [facility] [address] [id number] [place] [address] Jul, [facility] [place] [facility] [address] [id number] [place] [address] Jun, [facility] [place] [facility] [address] [id number] [place] [address] 18 Jun, 2012 [facility] [address] [id number] [place] [address] 15 Jun, 2012 [facility] [place] [facility] [address] [id number] [place] [address]31 14 Jun, 2012 [facility] [address] [id number] [place] [address]- [address] 12 Jun, 2012 [facility] [place] [facility] [address] [id number] [place] [address]- [address]25 08 Jun, 2012 [facility] [address] [id number] [place] [address]- [address] 08 Jun, 2012 [facility] [address] [id number] [place] [address]- [address] 02 Jun, 2012 [facility] [address] [id number] [place] [address] Jun, [facility] [address] [id number] [place] [address] 39[address] 27 May, 2012 [facility] [address] [id number] [place] [address]- 9461 25 May, 2012 [facility] [address] [id number] [place] [address]32 20 May, 2012 [facility] [place] [facility] [address] [id number] [place] [address]- [address]44 12 May, 2012 [facility] [place] [facility] [address] [id number] [place] [address]- [address] 15 Apr, 2012 [facility] [place] [facility] [address] [id number] [place] [address]- [address]258 09 Apr, 2012 [facility] [place] [facility] [address] [id number] [place] [address]- [address]461 08 Apr, 2012 [facility] [place] [facility] [address] [id number] [place] [address] Apr, [facility] [address] [id number] [place] [address] Apr, [facility] [address] [id number] [place] [address] Apr, [facility] [address] [id number] [place] [address] 38[address] Apr, [facility] [address] [id number] [place] [address] Mar, [facility], [place] [id number] Mar, [facility] [address] [id number] [place] [address] Mar, [facility] [address] [id number] [place] [address] 12[address] Mar, [facility] [address] [id number] [place] [address] Mar, [facility] [address] [id number] [place] [address] Mar, [facility] [address] [id number] [place] [address] Mar, [facility] [address] [id number] [place] [address] 2006 Mar, [facility] [address] [id number] [place] [address]- [address] Mar, [facility] [address] [id number] [place] [address] Mar, [facility] [address] [id number] [place] [address]- [address]136 Mar, [facility] [address] [id number] [place] [address]- [address]906 Mar, [facility] [address] [id number] [place] [address] Mar, [facility] [place] [facility] [address] [id number] [place] [address]- 7735 Mar, [facility] [place] [facility] [address] [id number] [place] [address]- 4668 Mar, [facility] [place] [facility] [address] [id number] [place] [address] Mar, [facility] [place] [facility] [address] [id number] [place] [address]- [address]015 Mar, [facility] [place] [facility] [address] [id number] [place] [address]- [address] Feb, [facility] [place] [facility] [address] [id number] [place] [address]- 6041 Feb, [facility] [place] [facility] [address] [id number] [place] [address]- 3541 Feb, [facility] [place] [facility] [address] [id number] [place] [address]- [address]484 Feb, [facility] [place] [facility] [address] [id number] [place] [address]- 2505 Feb, [facility] [place] [facility] [address] [id number] [place] [address]- 2438 Feb, [facility] [place] [facility] [address] [id number], [place] [address] Feb, [facility] [place] [facility] [address] [id number], [place] [address] Feb, [facility] [place] [facility] [address] [id number] [place] [address]- 6[address] Feb, [facility] [place] [facility] [address] [id number][place] [address] Feb, [facility] [place] [facility] [address] [id number], [place] [address]- [address]28 Feb, [facility] [place] [facility] [address] [id number] [place] [address]- [address] 13 Feb, 2012 [facility] [place] [facility] [address] [id number] [place] [address]- 2545 Feb, [facility] [place] [facility] [address] [id number] [place] [address]- 8707 Feb, [facility] [place] [facility] [address] [id number] [place] [address]- 4169 Feb, [facility] [place] [facility] [address] [id number] [place] [address]- [address]178 Feb, [facility] [place] [facility] [address] [id number] [place] [address] Jan, [facility] [place] [facility] [address] [id number] [place] [address]- [address]797 Jan, [facility] [place] [facility] [address] [facility] [id number] [place] [address]- 7077 Jan, [facility] [place] [facility] [address] [id number] [place] [address]- 1534 Jan, [facility] [place] [facility] [address] [facility] [id number] [place] [address] Jan, [facility] [place] [facility] [address] [facility] [id number] [place] [address] Jan, [facility] [place] [facility] [address] [facility] [id number] [place] [address] Jan, [facility] [place] [facility] [address] [id number] [address] 24 Jan, 2012 [facility] [place] [facility] [address] [id number] [place] [address] Jan, [facility] [place] [facility] [address] [facility] [id number] [place] [address] Jan, [facility] [place] [facility] [address] [facility] [id number], [place] [address] Jan, [facility] [place] [facility] [address] [id number] [place] [address] Jan, [facility] [place] [facility] [address] [id number] [place] [address] Jan, [facility] [place] [facility] [address] [id number] [place] [address]- 1666 Jan, [facility] [place] [facility] [address] [id number] [place] [address], [place] [address] 08 Jan, 2012 [facility] [place] [facility] [address] [id number] [place] [address]- 1598 05 Jan, 2012 [facility] [place] [facility] [address] [id number] [place] [address]- 7153 04 Jan, 2012 [facility] [place] [facility] [address] [id number] [place] [address]- [address] 21 Dec, 2011 [facility] [place] [facility] [address] [id number] [place] [address]- [address]381 20 Dec, 2011 [facility] [place] [facility] [address] [id number] [place] [address]- 3686 18 Dec, 2011 [facility] [place] [facility] [address] [id number] [place] [address]- 7870 18 Dec, 2011 [facility] [place] [facility] [address] [id number] [place] [address] 4997 10 Dec, 2011 [facility] [place] [facility] [address] [id number] [place] [address]- 0573 10 Dec, 2011 [facility] [place] [facility] [address] [id number] [place] [address]- 2019 10 Dec, 2011 [facility] [place] [facility] [address] [id number] [place] [address]- 8182 07 Dec, 2011 [facility] [place] [facility] [address] [id number] [place] [address]- 1847 30 Nov, 2011 [facility] [place] [facility] [address] [id number] [place] [address]- 2546 Nov, [facility] [place] [facility] [address] [id number] [place] [address]- 1516 Nov, [facility] [place] [facility] [address] [id number] [place] [address]- [address]326 Nov, [facility] [place] [facility] [address] [id number] [place] [address]- 1456 Nov, [facility] [place] [facility] [address] [id number] [place] [address]- 0464 Nov, [facility] [place] [facility] [address] [id number] [place] [address]- 0365 Oct, [facility] [place] [facility] [address] [id number] [place] [address]- 0370 Oct, [facility] [place] [facility] [address] [id number] [place] [address] 69[address] Oct, [facility] [place] [facility] [address] [id number] [place] [address]- 1805 Oct, [facility] [place] [facility] [address] [id number] [place] [address]- 2380 Oct, [facility] [place] [facility] [address] [id number] [place] [address]- 5961 Oct, [facility] [place] [facility] [address] [id number] [place] [address]- 1786 Oct, [facility] [place] [facility] [address] [id number] [place] [address]- 7549 Sep, [facility] [place] [facility] [address] [id number] [place] [address] 0433 Sep, [facility] [place] [facility] [address] [id number] [place] [address] 8597 Sep, [facility] [place] [facility] [address] [id number] [place] [address]- 6371 Sep, [facility] [place] [facility] [address] [id number] [place] [address]- 0021 19 Sep, 2011 [facility] [address] [id number] [place] [address]- 9[address] 15 Sep, 2011 [facility] [address] [id number] [place] [address]- 8538 14 Sep, 2011 [facility] [address] [id number] [place] [address]- 1748 11 Sep, 2011 [facility] [address] [id number] [place] [address]- 7408 05 Sep, 2011 [facility] [address] [id number] [place] [address]- 5441 04 Sep, 2011 [facility] [address] [id number] [place] [address]- 5492 August, [facility] [address] [id number] [place] [address]- 6412 August, [facility] [address] [id number] [place] [address]- 4809 August, [facility] [address] [id number] [place] [address]- 9834 August, [facility] [address] [id number] [place] [address]- 6374 August, [facility] [address] [id number] [place] [address]- 8410 Jul, [facility] [address] [id number] [place] [address]- 0621 Jul, [facility] [place] [facility] [address] [id number] [place] [address]- 5572 25 Jul, 2011 [facility] [place] [facility] [address] [id number] [place] [address]- [address] 17 Jul, 2011 [facility] [address] [id number] [place] [address]- 1533 Jul, [facility] [address] [id number] [place] [address]- 3770 Jul, [facility] [place] [facility] [address] [id number] [place] [address]- 1866 Jul, [facility] [place] [facility] [address] [id number] [place] [address]- 4794 Jun, [facility] [place] [facility] [address] [id number] [place] [address]- 3609 Jun, [facility] [place] [facility] [address] [id number] [place] [address]- 4418 Jun, [facility] [place] [facility] [address] [id number] [place] [address]- 6556 Jun, [facility] [place] [facility] [address] [facility] [id number] [place] [address]- 7356 Jun, [facility] [place] [facility] [address] [id number] [place] [address]- 4111 May, [facility] [place] [facility] [address] [id number] [place] [address]- 2157 May, [facility] [place] [facility] [address] [id number] [place] [address]- 7135 May, [facility] [place] [facility] [address] [id number] [place] [address]- 7716 May, [facility] [place] [facility] [address] [id number] [place] [address]- 0029 May, [facility] [place] [facility] [address] [id number] [place] [address]- 2109 May, [facility] [place] [facility] [address] [id number] [place] [address]- 6466 Apr, [facility] [place] [facility] [address] [id number] [place] [address]- 0586 Mar, [facility] [place] [facility] [address] [id number] [place] [address]- 4315 11 Feb, 2011 [facility] [address] [id number] [place] [address]- 8239 Feb, [facility] [place] [facility] [address] [id number] [place] [address] Feb, [facility] [address] [id number] [place] [address]- 6528 Feb, [facility] [place] [facility] [address] [id number] [place] [address]- 1017 31 Jan, 2011 [facility] [address] [id number] [place] [address], [place] [address]- 8934 27 Jan, 2011 [facility] [place] [facility] [address] [id number] [place] [address]- 2414 Jan, [facility] [address] [id number] [place] [address]- 1237 24 Jan, 2011 [facility] [address] [id number] [place] [address]- 1526 14 Jan, 2011 [facility] [place] [facility] [address] [id number] [place] [address]- 1450 Dec, [facility] [address] [id number] [place] [address]- 1932 Oct, [facility] [place] [facility] [address] [id number] [place] [address]- 9490 August, [facility] [address] [id number] [place] [address]- 9743 Mar, [facility] [place] [facility] [address] [id number] [place] [address] 27 Mar, 2010 [facility] [place] [facility] [address] [id number] [place] [address]- 2541 16 Mar, 2010 [facility] [place] [facility] [address] [id number] [place] [address]- 4596 15 Mar, 2010 [facility] [place] [facility] [address] [id number] [place] [address]- 5488 15 Mar, 2010 [facility] [place] [facility] [address] [id number] [place] [address]- 0706 08 Mar, 2010 [facility] [place] [facility] [address] [id number] [place] [address]- 9508 Mar, [facility] [place] [facility] [address] [id number] [place] [address]- 3373 Feb, [facility] [place] [facility] [address] [id number] [place] [address]- 4475 Feb, [facility] [place] [facility] [address] [id number] [place] [address]- 8854 Feb, [facility] [place] [facility] [address] [id number] [place] [address]- 7287 Jan, [facility] [place] [facility] [address] [id number] [place] [address]- 8190 Jan, [facility] [place] [facility] [address] [id number] [place] [address]- 3215 Jan, [facility] [place] [facility] [address] [id number] [place] [address]- 7035 Nov, [facility] [place] [facility] [address] [id number] [place] [address]- 5353 Sep, [facility] [place] [facility] [address] [id number], [place] [address]- 6995 August, [facility] [place] [facility] [address] [id number] [place] [address]- 1183 Mar, [facility] [place] [facility] [address] [id number] [place] [address]- 4946 Mar, [facility] [place] [facility] [address] [id number], [place] [address]- 5050 Feb, [facility] [place] [facility] [address] [id number], [place] [address]- 4527 Feb, [facility] [id number], [place] [address]- 7525 Feb, [facility] [id number], [place] [address]- 6403 Feb, [facility] [id number], [place] [address]- 3711 Feb, [facility] [id number], [place] [address]- 2889 Jan, [facility] [id number] [place] [address]- 1079 Jan, [facility] [id number], [place] [address]- 6309 Jan, [facility] [id number], [place] [address]- 2377 Jan, [facility] [id number], [place] [address]- 3412 Nov, [facility] [id number], [place] [address]- 6836 Sep, [facility] [id number], [place] [address]- 7202 August, [facility] [id number], [place] [address]- 1250 Jul, [facility] [id number], [place] [address]- 4848 May, IMMUNIZATIONS No Known Immunizations SOCIAL HISTORY [...] Knee Surgery 07/16/17 Hospitalization History [facility]- left hand/wrist swelling 10/09/2017
--- OUTSIDE RECORDS SUMMARY | 2018-01-01 11:28 | XMS REPORT ---
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210 Active 09942996 Problem Vascular dementia without behavioral disturbance F01.50 Active 29835690139217887 Problem Arthritis M19.90 Active 0143544 Problem Chronic atrial fibrillation I48.2 Active 178293434 Problem Dementia without behavioral disturbance, unspecified dementia type F03.90 Active 25782800 Problem Other chronic pancreatitis K86.1 Active 026862169 Problem Xeroderma Q80.9 Active 56344717 Problem Chronic obstructive pulmonary disease with acute lower respiratory infection J44.0 Active 189995866 Problem Type 2 diabetes mellitus with diabetic neuropathy, without long-term current use of insulin E11.40 Active 10094890 Problem Atherosclerosis of [place] artery of both lower extremities with intermittent claudication I70.213 Active 420801361308682 Problem Hammertoe of right foot M20.41 Active 899107556 Problem Hammertoe of left foot M20.42 Active 122286962 Problem Migraine without aura and with status migrainosus, not intractable G43.001 Active 997446644 Problem Migraine without aura and without status migrainosus, not intractable G43.009 Active 184538918 Problem Major depressive disorder, recurrent episode, moderate F33.1 Active 211251752 Problem Unspecified psychosis F29 Active 29519770 Problem Cervicalgia M54.2 Active 8053620972355 Problem Diabetic polyneuropathy associated with type 2 diabetes mellitus E11.42 Active 97334004 Problem COPD (chronic obstructive pulmonary disease) J44.9 Active 26752294 Problem 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.118 Active 8914003380958 Problem Gastroparesis K31.84 Active 090108606 Problem Stress incontinence of urine N39.3 Active 04036091 Problem Osteoporosis M81.0 Active 93562504 Problem Controlled type 2 diabetes mellitus without complication, without long -term current use of insulin E11.9 Active 423098891 Problem Barretts esophagus K22.70 Active 186969584 Problem Chronic fatigue R53.82 Active 26270755 Problem History of common bile duct surgery Z98.89 Active 433386766 Problem Bipolar affective disorder, currently depressed, moderate F31.32 Active 655218049 Problem Generalized anxiety disorder F41.1 Active 511704274 Problem Gastroesophageal reflux disease, esophagitis presence not specified K21.9 Active 628023623 Problem Coronary artery disease involving [place] coronary artery of [place] 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 I25.118 Active 0289477051144 Problem Postconcussion syndrome F07.81 Active 31811745 Problem Chronic pain syndrome G89.4 Active 469788342 Problem Type 2 diabetes mellitus with diabetic peripheral angiopathy without gangrene E11.51 Active 258181077 Problem Paroxysmal atrial fibrillation I48.0 Active 132096055 Problem Unspecified atherosclerosis of [place] arteries of extremities, unspecified extremity I70.209 Active 740458536098398 Problem Acute exacerbation of chronic obstructive pulmonary disease (COPD) J44.1 Active 968147869 Problem Crohn''s disease without complication, unspecified gastrointestinal tract location K50.90 Active 47265337 ALLERGIES Substance Reaction Event Type Date Status Penicillin V Potassium rash Drug Allergy Oct, Active Neosporin rash Drug Allergy Oct, Active Ibuprofen rash Drug Allergy Oct, Active Glipizide hives, nausea Drug Allergy Oct, Active ENCOUNTERS Encounter Location Date Diagnosis [facility] [place] [address] [facility] [id number] [place] [address] Feb, [facility], [place] [address] [facility] [facility] [id number] [address] Nov, [facility], [place] [id number] [place] [address] 62328- 5959 Nov, Onychomycosis B35.1 ; Hammertoe of left foot M20.42 ; Hammertoe of right foot M20.41 and Type 2 diabetes mellitus with diabetic neuropathy, without long-term current use of insulin E11.40 [facility], [place] [id number] [place] [address] 20753- 5803 Nov, [facility], [place] [id number] [place] [address] 98687- 0403 Nov, Bronchitis J40 [facility], [place] [address] 27694- 5275 Oct, [facility] [place] [id number] [place] [address] 76016- 5746 Oct, Bipolar affective disorder, currently depressed, moderate F31.32 ; Vascular dementia without behavioral disturbance F01.50 and Generalized anxiety disorder F41.1 [facility] [id number] [place] [address] 70871- 1712 Oct, [facility] [place] [id number] [place] [address] 94707- 1624 Oct, [facility] [place] [id number] [place] [address] 64641- 5064 Oct, Edema of both legs R60.0 [facility] [place] [id number] [place] [address] 10509- 5008 Oct, [facility] [place] [id number] [place] [address] 05131- 3675 Sep, [facility] [place] [id number] [place] [address] 92602- 5990 Sep, [facility] [place] [id number] [place] [address] 19745- 4739 Sep, [facility] [place] [id number] [place] [address] 73329- 4824 18 Sep, 2017 Encounter for well woman exam with routine gynecological exam Z01.419 ; Screening for STDs (sexually transmitted diseases) Z11.3 ; Screening breast examination Z12.31 and Overweight (BMI 25.0-29.9) E66.3 [facility], [place] [address] [address] 11 Sep, 2017 [facility], [place] [id number] [place] [address] 63912- 9238 Sep, [facility] [place] [id number] [place] [address] 86362- 8167 Sep, [facility] [place] [id number] [place] [address] 60098- 6986 August, [facility] [place] [id number] [place] [address] 29516- 2879 August, [facility] [id number] [place] [address] 20949- 8896 August, Type 2 diabetes mellitus with diabetic neuropathy, without long-term current use of insulin E11.40 and Sprain of right ankle, unspecified ligament, initial encounter S93.401A [facility] [id number] [place] [address] 33681- 3467 August, [facility] [id number] [address] 7137 August, [facility] [id number] [place] [address] 32120- 6845 August, [facility], [place] [id number] [place] [address] 11941- 1751 August, Gastroesophageal reflux disease, esophagitis presence not specified K21.9 [facility], [place] [id number] [place] [address] 99963- 3341 August, [facility], [place] [id number] [place] [address] 20615- 8184 August, [facility], [place] [id number] [place] [address] 59512- 3927 August, [facility] [place] [id number] [place] [address] 81911- 6379 August, Type 2 diabetes mellitus with diabetic neuropathy, without long-term current use of insulin E11.40 and Elevated liver enzymes R74.8 [facility], [place] [id number] [place] [address] 53206- 5004 Jul, [facility], [place] [id number] [place] [address] 23578- 0165 Jul, Cough R05 [facility], [place] [id number] [place] [address] 49649- 4566 Jul, [facility] [place] [id number] [place] [address] 23172- 4878 Jul, [facility] [place] [id number] [place] [address] 64178- 6241 Jul, Bipolar affective disorder, currently depressed, moderate F31.32 ; Vascular dementia without behavioral disturbance F01.50 and Generalized anxiety disorder F41.1 [facility], [place] [id number] [place] [address] 62864- 2817 Jul, [facility], [place] [id number] [place] [address] 64886- 5355 Jul, Type 2 diabetes mellitus with diabetic neuropathy, without long-term current use of insulin E11.40 and Elevated liver enzymes R74.8 [facility], [place] [id number] [place] [address] 72053- 3923 Jul, [facility], [place] [id number] [place] [address] 64063- 0575 Jul, [facility] [place] [id number] [place] [address] 57270- 0986 Jul, [facility], [place] [id number] [place] [address] 87251- 9345 Jul, Post-menopausal Z78.0 [facility], [place] [id number] [place] [address] 79533- 9369 Jul, Stress incontinence of urine N39.3 [facility], [place] [id number] [place] [address] 83854- 6883 Jul, [facility], [place] [id number] [place] [address] 86880- 7979 Jul, [facility], [place] [id number] [place] [address] 37002- 0656 Jul, Stress incontinence of urine N39.3 and Cough R05 [facility], [place] [address] 69491- 5337 Jul, [facility], [place] [id number] [place] [address] 54554- 8539 Jul, [facility], [place] [id number] [place] [address] 69067- 0904 Jul, [facility], [place] [id number] [place] [address] 69926- 7507 Jul, Gastroesophageal reflux disease, esophagitis presence not specified K21.9 [facility], [place] [id number] [place] [address] 93615- 9849 Jun, Diabetic polyneuropathy associated with type 2 diabetes mellitus E11.42 [facility], [place] [id number] [place] [address] 66625- 0456 Jun, Diabetic polyneuropathy associated with type 2 diabetes mellitus E11.42 ; Coronary artery disease involving [place] coronary artery of [place] 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 I25.118 and Paroxysmal atrial fibrillation I48.0 [facility], [place] [id number] [place] [address] 44343- 2933 Jun, [facility], [place] [id number] [place] [address] 72313- 2306 Jun, [facility], [place] [id number] [place] [address] 44268- 9096 Jun, Gastroenteritis K52.9 [place] [id number] [place] [address] 68383- 6265 Jun, Gastroenteritis K52.9 [facility], [place] [id number] [place] [address] 82217- 4511 Jun, [place] [id number] [place] [address] 85662- 6019 Jun, [place] [id number] [place] [address] 08138- 5252 Jun, Sprain of right ankle, unspecified ligament, initial encounter S93.401A ; Type 2 diabetes mellitus with diabetic neuropathy, without long-term current use of insulin E11.40 ; Atherosclerosis of [place] artery of both lower extremities with intermittent claudication I70.213 ; 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.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 ; Chronic atrial fibrillation I48.2 and Crohn''s disease without complication, unspecified gastrointestinal tract location K50.90 [facility] [id number] [place] [address] 01776 -1468 17 Jun, 2017 Cough R05 and Chronic obstructive pulmonary disease with acute lower respiratory infection J44.0 [place] [id number] [place] [address] 86925- 3486 16 Jun, 2017 [place] [id number] [place] [address] 33107- 1737 15 Jun, 2017 Coughing R05 ; Unspecified atherosclerosis of [place] arteries of extremities, unspecified extremity I70.209 ; Type 2 diabetes mellitus with diabetic peripheral angiopathy without gangrene E11.51 ; Crohn''s disease without complication, unspecified gastrointestinal tract location K50.90 ; Other chronic pancreatitis K86.1 and Chronic atrial fibrillation I48.2 [facility] [address], [place] [address] 10 Jun, 2017 [facility], [place] [id number] [place] [address] 55688- 1874 Jun, Bipolar affective disorder, currently depressed, moderate F31.32 ; Vascular dementia without behavioral disturbance F01.50 and Generalized anxiety disorder F41.1 [facility], [place] [id number] [place] [address] 00158- 0164 May, Generalized anxiety disorder F41.1 [facility], [place] [id number] [place] [address] 78594- 3736 May, [facility], [place] [address] 22710- 0248 May, [facility], [place] [id number] [place] [address] 66246- 5859 May, Coughing R05 [facility], [place] [id number] [place] [address] 70114- 5760 May, [facility], [place] [address] 72324- 6056 May, Bipolar affective disorder, currently depressed, moderate F31.32 ; Vascular dementia without behavioral disturbance F01.50 and Generalized anxiety disorder F41.1 [facility], [place] [id number] [place] [address] 93521- 8351 Apr, Generalized anxiety disorder F41.1 [facility], [place] [id number] [place] [address] 41139- 5595 Apr, [facility], [place] [id number] [place] [address] 58119- 6050 Apr, Vascular dementia without behavioral disturbance F01.50 ; Generalized anxiety disorder F41.1 and Bipolar affective disorder, currently depressed, moderate F31.32 [facility], [place] [id number] [place] [address] 57760- 9781 Apr, Generalized anxiety disorder F41.1 [facility] [id number] [place] [address] 78177 -9051 Apr, Cough R05 and Acute exacerbation of chronic obstructive pulmonary disease (COPD) J44.1 [facility], [place] [address], [place] [address]- 5008 Apr, [facility] [id number] [place] [address] 35669 -5304 Mar, Cough R05 and Cigarette nicotine dependence without complication F17.210 [facility] [place] [id number] [place] [address] 43967- 7241 Mar, [facility], [place] [id number] [place] [address] 34756- 8696 Feb, Generalized anxiety disorder F41.1 ; Major depressive disorder, recurrent episode, moderate F33.1 ; Vascular dementia without behavioral disturbance F01.50 and Unspecified psychosis F29 [facility] [place] [id number] [place] [address] 65978- 9201 Feb, [facility] [place] [id number] [place] [address] 34190- 3968 Feb, [facility], [place] [id number] [place] [address] 02453- 2241 Feb, Generalized anxiety disorder F41.1 [facility] [place] [id number] [place] [address] 68998- 3357 14 Feb, 2017 Generalized anxiety disorder F41.1 [facility], [place] [address] [place] [address] 59159- 7906 06 Feb, 2017 Dizziness R42 ; Chronic fatigue R53.82 ; Postconcussion syndrome F07.81 ; Fall, initial encounter W19.XXXA and Disorientation R41.0 [facility], [place] [address] [place] [address] 66261- 4590 03 Feb, 2017 Postconcussion syndrome F07.81 ; Injury of head, initial encounter S09.90XA ; Fall, initial encounter W19.XXXA ; Disorientation R41.0 and Acute cystitis with hematuria N30.01 [place] [place] [id number] [place] [address] 58701- 7595 Jan, Gastroesophageal reflux disease, esophagitis presence not specified K21.9 ; Post-menopausal Z78.0 and Migraine without aura and without status migrainosus, not intractable G43.009 [facility], [place] [id number] [place] [address] 00884- 7521 Jan, [place] [address] 95882- 9279 Jan, Generalized anxiety disorder F41.1 ; Major depressive disorder, recurrent episode, moderate F33.1 ; Vascular dementia without behavioral disturbance F01.50 and Unspecified psychosis F29 [place] [address] 92590- 6397 Jan, Pneumonia of left lower lobe due to infectious organism J18.1 [place] [address] 63830- 1456 Jan, Migraine without aura and with status migrainosus, not intractable G43.001 [facility] [address] 41818 -7382 Jan, Migraine without aura and without status migrainosus, not intractable G43.009 [place] [address] 11647- 7985 Dec, Hematoma T14.8 [place] [address] 47441- 4793 Dec, [facility] [address] 66681 -3667 Nov, Fatigue, unspecified type R53.83 [place] [address] 53499- 5023 Nov, Scabies B86 and Coronary artery disease involving [place] coronary artery of [place] 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 I25.118 [place] [address] 04077- 1257 Nov, [place] [address] [place] [address]- 8547 Nov, [facility], [place] [id number] [place] [address] 94476- 8575 Oct, [facility], [place] [id number] [place] [address] 68790- 9288 Oct, Generalized anxiety disorder F41.1 and Major depressive disorder, recurrent episode, moderate F33.1 [facility], [place] [id number] [place] [address] 86659- 9232 Oct, Cramp of both lower extremities R25.2 [facility], [place] [id number] [place] [address] 81488- 4678 Oct, Leg cramps R25.2 [facility], [place] [id number] [place] [address] 13142- 6914 Oct, Chronic pain syndrome G89.4 [facility], [place] [id number] [place] [address] 89732- 6346 Oct, [facility], [place] [id number] [place] [address] 10622- 4112 Oct, [facility], [place] [id number] [place] [address] 82907- 4192 Oct, Routine gynecological examination Z01.419 and Screening for breast cancer Z12.31 [facility], [place] [id number] [place] [address] 80729- 5779 Sep, Diarrhea R19.7 [facility], [place] [id number] [place] [address] 95292- 3704 Sep, Back pain M54.9 [facility], [place] [id number] [place] [address] 45219- 0798 Sep, [facility] [place] [id number] [place] [address] 19564- 3934 Sep, [facility] [id number] [place] [address] 39739 -1892 August, Xeroderma Q80.9 [place] [id number] [place] [address] 46099- 4257 August, Dementia without behavioral disturbance, unspecified dementia type F03.90 [facility] [place] [id number] [place] [address] 93655- 2589 August, Chronic pain syndrome G89.4 [place] [address] 59723- 2032 August, [place] [address] 30379- 0316 August, Hyperlipidemia E78.5 ; Other fatigue R53.83 and Other specified hypotension I95.89 [facility] [address] 52355 -7350 August, Dysuria R30.0 ; Other fatigue R53.83 and Other specified hypotension I95.89 [place] [id number] [place] [address] 30518- 2103 August, [place] [id number] [place] [address] 04144- 5898 Jul, Pain in left knee M25.562 and Gastroenteritis K52.9 [facility] [place] [id number] [place] [address] 44732- 6517 Jul, [place] [id number] [place] [address] 89953- 1149 Jul, Diarrhea R19.7 [facility] [id number] [place] [address] 50030 -9335 Jul, Spider bite, accidental or unintentional, initial encounter T63.301A [place] [address] 32330- 2523 Jul, Primary osteoarthritis of right knee M17.11 and Arthritis M19.90 [place] [address] 34420- 1759 10 Jul, 2016 Generalized anxiety disorder F41.1 and Major depressive disorder, recurrent episode, moderate F33.1 [place] [address] 78352- 2082 07 Jul, 2016 Type 2 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 and Temporal headache R51 [place] [address] 82383- 4687 06 Jul, 2016 Back pain M54.9 [place] [address] 84561- 3022 Jul, [place] [address] 71679- 0505 Jul, [place] [address] 78902- 7771 30 Jun, 2016 Nausea R11.0 [facility] [place] [address] 58513 -3558 Jun, Acute suppurative otitis media of both ears without spontaneous rupture of tympanic membranes, recurrence not specified H66.003 and COPD exacerbation J44.1 [place] [address] 16167- 5829 Jun, Generalized anxiety disorder F41.1 [place] [address] 40921- 1304 16 Jun, 2016 [facility] [address] 73814 -0649 Jun, [facility] [address] 52171 -9909 Jun, Shortness of breath R06.02 and COPD exacerbation J44.1 [place] [address] [address] 10 Jun, 2016 Eczema, unspecified type L30.9 [place] [address] [address] Jun, [facility] [place] [address] [id number] [place] [phone] May, [facility] [place] [id number] [place] [id number] 9769 May, Muscle cramping R25.2 [facility], [place] [address] 15368- 3858 May, [facility], [place] [address] 95461- 4570 Apr, Diarrhea R19.7 [facility] [place] [address] 21649- 4627 Apr, [facility] [place] [id number] [place] [address] 59115- 1393 Apr, Chronic pain syndrome G89.4 [facility] [address] 73337- 5869 Apr, Cramp of both lower extremities R25.2 and Vascular dementia without behavioral disturbance F01.50 [facility] [address] 00744- 9517 Apr, Type 2 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 and Cigarette nicotine dependence without complication F17.210 [facility] [place] [id number] [place] [address] 58421- 3276 Mar, Generalized anxiety disorder F41.1 [facility], [place] [id number] [place] [address] 92574- 1969 Feb, Generalized anxiety disorder F41.1 and Major depressive disorder, recurrent episode, moderate F33.1 [place] [id number] [place] [address] 33980- 0265 Feb, [facility] [id number] [place] [address] 71643 -4974 05 Feb, 2016 Dysuria R30.0 and Acute cystitis with hematuria N30.01 [facility], [place] [address], [place] [address] 3307 Jan, [facility], [place] [id number] [place] [address] 62182- 3160 Jan, [facility], [place] [id number] [place] [address] 99690- 4502 Jan, [facility], [place] [address] 95826- 7046 Jan, [facility] [id number] [place] [address] 06912 -0408 10 Jan, 2016 Wasp sting, accidental or unintentional, initial encounter T63.461A [facility], [place] [id number] [place] [address] 95269- 0754 06 Jan, 2016 Encounter for immunization Z23 [facility], [place] [address] 67120- 4581 Jan, [facility], [place] [id number] [place] [address] 86311- 9716 Jan, [facility], [place] [id number] [place] [address] 31656- 3881 28 Dec, 2015 Generalized anxiety disorder F41.1 and Major depressive disorder, recurrent episode, moderate F33.1 [facility], [place] [id number] [place] [address] 15933- 5803 Dec, Routine gynecological examination Z01.419 ; Postmenopausal Z78.0 ; Screening breast examination Z12.39 ; Osteopenia M85.80 and Breast cancer screening Z12.39 [facility], [place] [id number] [place] [address] 03226- 3113 Dec, [facility], [place] [id number] [place] [address] 97493- 0025 Dec, [facility], [place] [id number] [place] [address] 14866- 0494 16 Dec, 2015 [facility], [place] [id number] [place] [address]- 3923 16 Dec, 2015 [facility], [place] [address] [facility] [id number] [place] [address]- 5621 14 Dec, 2015 [facility], [place] [id number] [place] [address]- 2882 06 Dec, 2015 [facility], [place] [id number] [place] [address]- 7607 Nov, [facility] [address] [facility] [id number] [place] [address] Nov, Cough R05 ; Other viral agents as the cause of diseases classified elsewhere B97.89 and Acute upper respiratory infection, unspecified J06.9 [facility], [place] [id number] [place] [address]- 6018 Nov, [facility], [place] [id number] [place] [address]- 4970 Nov, [facility], [place] [id number] [place] [address]- 2112 Nov, [facility], [place] [id number] [place] [address]- 3367 Nov, [facility], [place] [address], [place] [address]- 0269 Nov, [facility], [place] [id number] [place] [address]- 5226 Oct, [facility], [place] [id number] [address]- 3730 Oct, [facility], [place] [id number] [place] [address]- 5543 14 Oct, 2015 [facility], [place] [id number] [place] [address]- 7789 Oct, Chronic pain syndrome G89.4 [facility], [place] [address], [place] [address]- 7860 Sep, Generalized anxiety disorder F41.1 and Major depressive disorder, recurrent episode, moderate F33.1 [facility] [id number] [place] [address] 31689- 1844 Sep, [facility], [place] [id number] [place] [address] 87971- 2247 Sep, [place] [address] 19536- 8999 14 Sep, 2015 Generalized anxiety disorder F41.1 [place] [id number] [place] [address] 59236- 4444 13 Sep, 2015 Cramp of both lower extremities R25.2 and Cervicalgia M54.2 [place] [id number] [place] [address] 92234- 5138 06 Sep, 2015 Generalized anxiety disorder F41.1 [place] [id number] [place] [address] 13001- 1967 Sep, [facility] [id number] [place] [address] 72227 -2849 August, Rash R21 ; Itching L29.9 and Allergic response, subsequent encounter T78.40XD [place] [id number] [place] [address] 73084- 8636 August, Primary insomnia F51.01 [facility] [id number] [place] [address] 23414 -8425 August, Rash R21 ; Itching L29.9 and Allergic response, initial encounter T78.40XA [place] [id number] [place] [address] 31705- 7856 August, [facility], [place] [id number] [place] [address] 01039- 2054 August, Cramp of both lower extremities R25.2 [place] [place] [id number] [place] [address] 97043- 2923 August, Back pain M54.9 [facility], [place] [address], [place] [address]- 0619 August, [facility], [place] [address], [place] [address]- 9847 August, [facility] [address], [place] [address] -1676 August, Cramp of both lower extremities R25.2 [facility], [place] [address], [place] [address]- 1603 August, [facility], [place] [id number] [place] [address] 89771- 9311 August, Syncope R55 ; Paroxysmal atrial fibrillation I48.0 ; Dementia without behavioral disturbance, unspecified dementia type F03.90 and Chronic pain syndrome G89.4 [facility], [place] [id number] [place] [address] 11654- 0984 August, Type 2 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 and Syncope R55 [facility], [place] [address], [place] [address]- 8944 Jul, [facility], [place] [id number] [address]- 5261 Jul, [facility], [place] [address], [place] [address]- 4362 Jul, [facility], [place] [address], [place] [address]- 6230 Jul, [facility], [place] [address], [place] [address]- 9886 Jul, [facility], [place] [id number] [place] [address] 09943- 0873 Jul, UTI (urinary tract infection) N39.0 [facility], [place] [address], [place] [address]- 2151 Jul, [place] [address], [place] [address]- 2161 18 Jul, 2015 Major depressive disorder, recurrent episode, moderate F33.1 and Generalized anxiety disorder F41.1 [facility], [place] [address], [place] [address]- 4042 14 Jul, 2015 Generalized anxiety disorder F41.1 [facility], [place] [id number] [place] [address] 88189- 8756 14 Jul, 2015 Diarrhea R19.7 [facility], [place] [id number] [place] [address] 48244 2548 14 Jul, 2015 [facility], [place] [id number] [place] [address] 53406- 1592 Jun, [facility], [place] [id number] [place] [address] 48972- 0964 Jun, Eczema L30.9 [facility], [place] [id number] [place] [address] 17878- 6935 Jun, [facility], [place] [id number] [place] [address] 83483- 2658 Jun, COPD (chronic obstructive pulmonary disease) J44.9 [facility], [place] [address], [place] [address]- 8403 Jun, [facility], [place] [address], [place] [address]- 3734 Jun, Major depressive disorder, recurrent episode, moderate F33.1 and Generalized anxiety disorder F41.1 [facility], [place] [address], [place] [address]- 8050 May, [facility], [place] [id number] [place] [address] 37047- 1116 May, UTI (urinary tract infection) N39.0 [facility], [place] [address], [place] [address]- 9786 17 May, 2015 [facility], [place] [address], [place] [address]- 6359 May, [facility], [place] [address], [place] [address]- 9631 May, [facility], [place] [address], [place] [address]- 2924 May, [facility], [place] [id number] [place] [address] 41869- 7933 Apr, Major depressive disorder, recurrent episode, moderate F33.1 and Generalized anxiety disorder F41.1 [facility], [place] [id number] [place] [address] 08483- 9495 Apr, COPD (chronic obstructive pulmonary disease) J44.9 [facility], [place] [id number] [place] [address] 74199- 8072 Apr, [facility], [place] [id number] [place] [address] 49080- 1741 Apr, Atrial flutter I48.92 [facility], [place] [address], [place] [address]- 8116 Apr, [facility], [place] [address], [place] [address]- 6118 Apr, [facility], [place] [address], [place] [address]- 9965 Mar, [facility], [place] [address], [place] [address]- 8843 Mar, [facility], [place] [address], [place] [address]- 8535 Mar, [facility], [place] [address], [place] [address]- 4864 Mar, Hyperlipidemia E78.5 ; Type 2 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 ; Major depressive disorder, recurrent episode, moderate F33.1 and Chronic pain syndrome G89.4 [facility], [place] [address], [place] [address]- 8703 16 Mar, 2015 [facility], [place] [address], [place] [address]- 3014 Mar, [facility], [place] [address], [place] [address]- 3478 Mar, [facility], [place] [id number] [place] [address] 41507- 1153 Mar, [facility], [place] [id number] [place] [address] 47051- 5930 Feb, COPD (chronic obstructive pulmonary disease) J44.9 and Back pain M54.9 [facility], [place] [address], [place] [address]- 9920 Feb, [facility], [place] [id number] [place] [address] 66227- 6673 Feb, [facility], [place] [address], [place] [address]- 6067 Feb, [facility], [place] [id number], [place] [address]- 1605 Feb, [facility], [place] [address], [place] [address]- 5666 Feb, [facility], [place] [id number], [place] [address]- 2586 Feb, [facility], [place] [address], [place] [address]- 0006 Feb, [facility], [place] [address], [place] [address]- 9009 Feb, [facility], [place] [address], [place] [address]- 1773 Feb, Diabetes E11.9 ; Back pain M54.9 and COPD (chronic obstructive pulmonary disease) J44.9 [facility], [place] [address], [place] [address]- 0011 Jan, [facility], [place] [address], [place] [address]- 1556 Jan, Major depression, recurrent F33.9 and Generalized anxiety disorder F41.1 [facility], [place] [address], [place] [address]- 0703 Jan, Chronic pain G89.29 [facility], [place] [id number] [place] [address] 84318- 5422 Jan, [facility], [place] [id number] [place] [address] 50658- 8039 Jan, [facility], [place] [id number] [place] [address] 22866- 8980 Jan, [facility], [place] [id number] [place] [address] 43044- 7397 Jan, [facility], [place] [id number] [place] [address] 15701- 9656 Jan, Nicotine dependence F17.200 [facility], [place] [id number] [place] [address] 95859- 7475 Jan, Nicotine dependence F17.200 and Back pain M54.9 [facility], [place] [id number] [place] [address] 41208- 0123 Jan, [facility], [place] [id number] [place] [address] 26939- 6424 Dec, [facility], [place] [id number] [place] [address] 73170- 3204 25 Dec, 2015 Anxiety, generalized 300.02 and Major depression, recurrent 296.30 [facility], [place] [id number] [place] [address] 52913- 4841 24 Dec, 2014 [facility], [place] [id number] [place] [address] 56432- 8333 Dec, [facility], [place] [id number] [place] [address] 09085- 8376 17 Dec, 2014 [facility], [place] [id number] [place] [address] 27840- 8563 15 Dec, 2014 [facility], [place] [id number] [place] [address] 85507- 0929 14 Dec, 2014 [facility], [place] [id number] [place] [address] 92212- 2465 11 Dec, 2014 [facility], [place] [id number] [place] [address] 10235- 8407 10 Dec, 2014 [facility], [place] [id number] [place] [address] 31364- 7175 08 Dec, 2014 Skin tear 879.8 [facility], [place] [id number] [place] [address] 20982- 5082 08 Dec, 2014 Routine gynecological examination V72.31 ; Breast cancer screening V76.10 and Family history of breast cancer in first degree relative V16.3 [facility], [place] [id number] [place] [address] 20551- 7702 03 Dec, 2014 [facility], [place] [id number] [place] [address] 21162- 5098 02 Dec, 2014 [facility], [place] [id number] [place] [address] 03878- 2783 Nov, [facility], [place] [id number] [place] [address] 55215- 0138 Nov, [facility], [place] [id number] [place] [address] 61603- 8039 Nov, Poor balance 781.99 and Vascular dementia, uncomplicated 290.40 [facility], [place] [id number] [place] [address] 37815- 8552 Nov, [facility], [place] [id number] [place] [address] 55210- 4344 Nov, Major depression, recurrent 296.30 and Anxiety, generalized 300.02 [facility], [place] [address], [place] [address]- 5167 Nov, [facility], [place] [id number] [place] [address] 51043- 4543 Nov, [facility], [place] [address], [place] [address]- 2878 Nov, [facility], [place] [id number] [place] [address] 85788- 8017 Nov, [facility], [place] [id number] [place] [address] 82917- 3592 Nov, Vascular dementia, uncomplicated 290.40 and Lumbago 724.2 [facility], [place] [id number] [place] [address] 17507- 9170 Nov, [facility], [place] [id number] [place] [address] 20806- 6955 Nov, [facility], [place] [id number] [place] [address] 11014- 0465 Nov, [facility], [place] [id number] [place] [address] 22059- 2604 Oct, [facility], [place] [id number] [address]- 6317 Oct, [facility], [place] [address], [place] [address]- 9762 Oct, [facility], [place] [address], [place] [address]- 1997 Oct, COPD (chronic obstructive pulmonary disease) 496 and Hyperlipidemia 272.4 [facility], [place] [id number] [place] [address] 80991- 8236 Oct, Major depression, recurrent 296.30 and Anxiety, generalized 300.02 [facility], [place] [address], [place] [address]- 5826 Oct, [facility], [place] [id number] [address]- 7989 10 Oct, 2014 [facility], [place] [address], [place] [address]- 8534 Oct, [facility], [place] [address], [place] [address]- 5643 Sep, Lumbago 724.2 and Anxiety state, unspecified 300.00 [facility], [place] [id number] [place] [address] 78026- 3343 Sep, [facility], [place] [id number] [place] [address] 91293- 1448 Sep, [facility], [place] [id number] [place] [address] 95493- 3461 August, [facility], [place] [id number] [place] [address] 503017- 7943 August, Major depression, recurrent 296.30 ; Anxiety, generalized 300.02 and No condition on Saline II V71.09 [facility], [place] [address], [place] [address]- 7673 August, [facility], [place] [id number] [place] [address]- 5897 August, [facility], [place] [address], [place] [address]- 3072 Jul, [facility], [place] [address], [place] [address]- 7150 Jul, [facility], [place] [address], [place] [address]- 8331 Jul, [facility], [place] [id number], [place] [address]- 5431 Jun, [facility], [place] [address], [place] [address]- 0266 Jun, [facility], [place] [id number], [place] [address]- 5351 Jun, [facility] [place] [facility] [address] [id number] [place] [address] Jun, [facility] [place] [facility] [address] [id number] [place] [address] Jun, [facility] [place] [facility] [address] [id number] [place] [address] Jun, [facility] [place] [facility] [address] [id number] [place] [address] Jun, [facility] [place] [facility] [address] [id number] [place] [address] 17 Jun, 2014 [facility] [place] [facility] [address] [id number] [place] [address]- [address] Jun, [facility] [place] [facility] [address] [id number] [place] [address] Jun, [facility] [place] [facility] [address] [id number] [place] [address] 10 Jun, 2014 [facility] [place] [facility] [address] [id number] [place] [address] Jun, [facility] [place] [facility] [address] [id number] [place] [address] Jun, [facility] [place] [facility] [address] [id number] [place] [address] Jun, [facility] [place] [facility] [address] [id number], [place] [address] Jun, [facility] [place] [facility] [address] [id number] [place] [address] Jun, [facility] [place] [facility] [address] [id number] [place] [address] May, [facility] [place] [facility] [address] [id number] [place] [address]- [address] May, [facility] [place] [facility] [address] [id number] [place] [address] May, 2014 [facility] [place] [facility] [address] [id number] [place] [address]- [address] May, 2014 [facility] [place] [facility] [address] [id number] [place] [address]- [address] May, 2014 [facility] [place] [facility] [address] [facility] [id number] [place] [address]- [address] May, 2014 [facility] [place] [facility] [address] [id number] [place] [address]- [address] May, 2014 [facility] [place] [facility] [address] [facility] [id number] [place] [address]- [address] May, 2014 [facility] [place] [facility] [address] [facility] [id number] [place] [address]- [address] May, 2014 [facility] [place] [facility] [address] [facility] [id number] [place] [address]- [address] May, 2014 [facility] [place] [facility] [address] [facility] [id number] [place] [address]- [address] May, [facility] [place] [facility] [address] [facility] [id number] [place] [address]- [address] May, 2014 [facility] [place] [facility] [address] [facility] [id number] [place] [address]- [address] May, [facility] [place] [facility] [address] [facility] [id number], [place] [address] May, [facility] [place] [facility] [address] [facility] [id number] [place] [address] Apr, [facility] [place] [facility] [address] [facility] [id number] [place] [address]- [address] Apr, [facility] [place] [facility] [address] [facility] [id number] [place] [address] Apr, [facility] [place] [facility] [address] [facility] [id number], [place] [address] Apr, [facility] [place] [facility] [address] [id number] [place] [address] Apr, [facility] [place] [facility] [address] [id number] [place] [address]- [address] Apr, [facility] [place] [facility] [address] [id number] [place] [address]- [address] Apr, [facility] [place] [facility] [address] [id number] [place] [address]- [address] Apr, [facility] [place] [facility] [address] [id number] [place] [address]- [address] Apr, [facility] [place] [facility] [address] [id number] [place] [address]- [address] Apr, [facility] [place] [facility] [address] [id number] [place] [address]- [address] Apr, [facility] [place] [facility] [address] [id number] [place] [address]- [address] Apr, [facility] [place] [facility] [address] [id number] [place] [address]- [address] Mar, [facility] [place] [facility] [address] [id number] [place] [address] Mar, [facility] [place] [facility] [address] [id number] [place] [address] Mar, [facility] [place] [facility] [address] [id number] [place] [address] 359[address] 30 Mar, 2014 [facility] [place] [facility] [address] [id number] [place] [address] 29 Mar, 2014 [facility] [place] [facility] [address] [id number] [place] [address]- 7068 29 Mar, 2014 [facility] [place] [facility] [address] [id number] [place] [address]- 3069 Mar, [facility] [place] [facility] [address] [id number] [place] [address]- 0[address] 19 Mar, 2014 [facility] [address] [id number] [place] [address] 2882 15 Mar, 2014 [facility] [place] [facility] [address] [id number] [place] [address]- 0726 15 Mar, 2014 [facility] [address] [id number] [place] [address] 15 Mar, 2014 [facility] [place] [facility] [address] [id number] [place] [address]- [address]26 15 Mar, 2014 [facility] [place] [facility] [address] [id number] [place] [address]- 49[address] Mar, [facility] [place] [facility] [address] [id number] [place] [address]- 9696 Mar, [facility] [place] [facility] [address] [id number] [place] [address]- 57[address] Mar, [facility] [place] [facility] [address] [id number] [place] [address]- 8840 Mar, [facility] [place] [facility] [address] [id number] [place] [address] 95[address] Mar, [facility] [place] [facility] [address] [id number] [place] [address] 9[address] Mar, [facility] [place] [facility] [address] [id number] [place] [address]- 5094 Mar, [facility] [place] [facility] [address] [id number] [place] [address]- 6497 Mar, [facility] [place] [facility] [address] [id number] [place] [address]- 2751 Feb, [facility] [place] [facility] [address] [id number] [place] [address]- 8694 Feb, [facility] [place] [facility] [address] [id number] [place] [address] Feb, [facility] [place] [facility] [address] [id number] [place] [address]- 6610 Feb, [facility] [place] [facility] [address] [id number] [place] [address]- 2033 Feb, [facility] [place] [facility] [address] [id number] [place] [address]- 5866 Feb, [facility] [place] [facility] [address] [id number] [place] [address]- 4240 Feb, [facility] [place] [facility] [address] [id number] [place] [address] 1954 Feb, [facility] [place] [facility] [address] [id number] [place] [address]- 5145 Feb, [facility] [place] [facility] [address] [id number] [place] [address]- 4095 Feb, [facility] [place] [facility] [address] [id number], [place] [address] Feb, [facility] [place] [facility] [address] [id number] [place] [address]- 8089 Feb, [facility] [place] [facility] [address] [id number], [place] [address]- 8276 Feb, [facility] [place] [facility] [address] [id number], [place] [address]- 99[address] Feb, [facility] [place] [facility] [address] [id number], [place] [address] 8160 Feb, [facility] [place] [facility] [address] [id number] [place] [address]- 0436 Feb, [facility] [place] [facility] [address] [id number], [place] [address]- 43[address] Feb, [facility] [place] [facility] [address] [id number], [place] [address]- [address] Jan, [facility] [place] [facility] [address] [id number], [place] [address]- 0623 Jan, [facility] [place] [facility] [address] [id number] [place] [address]- 6065 Jan, [facility] [place] [facility] [address] [id number] [place] [address]- 6951 Jan, [facility] [place] [facility] [address] [id number] [place] [address]- 4971 Jan, [facility] [place] [facility] [address] [id number] [place] [address]- 7545 Jan, [facility] [place] [facility] [address] [id number] [place] [address]- 2422 Jan, [facility] [place] [facility] [address] [id number] [place] [address]- 0399 Jan, [facility] [place] [facility] [address] [id number] [place] [address]- 8631 Jan, [facility] [place] [facility] [address] [id number] [place] [address]- 2072 Jan, [facility] [place] [facility] [address] [id number] [place] [address]- 8954 Jan, [facility] [place] [facility] [address] [id number] [place] [address]- 2233 Dec, [facility] [place] [facility] [address] [id number] [place] [address]- 3746 Dec, [facility] [place] [facility] [address] [id number], [place] [address]- 7842 Nov, [facility] [place] [facility] [address] [id number] [place] [address]- 4091 Nov, [facility] [place] [facility] [address] [id number] [place] [address]- 6085 Nov, [facility] [place] [facility] [address] [id number] [place] [address]- 5117 Nov, [facility] [place] [facility] [address] [id number] [place] [address]- 7818 Nov, 2013 [facility] [place] [facility] [address] [id number] [place] [address]- 1249 Nov, [facility] [place] [facility] [address] [id number] [place] [address]- 1066 Nov, [facility] [place] [facility] [address] [id number] [place] [address]- 7083 Oct, [facility] [place] [facility] [address] [id number] [place] [address]- 2219 Oct, 2013 [facility] [place] [facility] [address] [id number] [place] [address]- 7221 Oct, [facility] [place] [facility] [address] [id number] [place] [address]- 5950 Oct, [facility] [place] [facility] [address] [id number] [place] [address]- 1204 Sep, [facility] [place] [facility] [address] [id number] [place] [address]- 3436 Sep, [facility] [place] [facility] [address] [id number] [place] [address]- 1265 Sep, [facility] [place] [facility] [address] [id number] [place] [address]- 9149 Sep, [facility] [place] [facility] [address] [id number] [place] [address]- 0579 Sep, [facility] [place] [facility] [address] [id number] [place] [address]- 5098 Sep, [facility] [place] [facility] [address] [id number] [place] [address]- 1467 Sep, [facility] [place] [facility] [address] [id number] [place] [address]- 3758 Sep, [facility] [place] [facility] [address] [id number] [place] [address]- 5078 Sep, [facility] [place] [facility] [address] [id number] [place] [address]- 1181 Sep, [facility] [place] [facility] [address] [id number] [place] [address]- 3662 Sep, [facility] [place] [facility] [address] [id number] [place] [address]- 4983 Sep, [facility] [place] [facility] [address] [id number] [place] [address]- 6962 Sep, [facility] [place] [facility] [address] [id number] [place] [address]- 6612 Sep, [facility] [place] [facility] [address] [id number] [place] [address]- 7424 August, [facility] [place] [facility] [address] [id number] [place] [address]- 2129 August, [facility] [place] [facility] [address] [id number] [place] [address]- 9126 August, [facility] [place] [facility] [address] [id number] [place] [address]- 1824 August, [facility] [place] [facility] [address] [id number] [place] [address]- 7281 August, [facility] [place] [facility] [address] [id number] [place] [address]- 3592 August, [facility] [place] [facility] [address] [id number] [place] [address]- 3219 August, [facility] [place] [facility] [address] [id number] [place] [address]- 7319 August, [facility] [place] [facility] [address] [id number] [place] [address]- 1590 August, [facility] [place] [facility] [address] [id number] [place] [address]- 7216 August, [facility] [place] [facility] [address] [id number] [place] [address]- 2318 August, [facility] [place] [facility] [address] [id number] [place] [address]- 7064 August, [facility] [place] [facility] [address] [id number] [place] [address]- 0195 August, [facility] [place] [facility] [address] [id number] [place] [address]- 4172 August, [facility] [place] [facility] [address] [id number] [place] [address]- 9662 August, [facility] [place] [facility] [address] [id number] [place] [address]- 3526 August, [facility] [place] [facility] [address] [id number] [place] [address]- 3919 August, [facility] [place] [facility] [address] [id number] [place] [address]- 5630 August, [facility] [place] [facility] [address] [id number] [place] [address]- 0615 August, [facility] [place] [facility] [address] [id number] [place] [address]- 5260 Jul, [facility] [place] [facility] [address] [id number] [place] [address]- 4681 Jul, [facility] [place] [facility] [address] [id number] [place] [address]- 8285 Jul, [facility] [place] [facility] [address] [id number] [place] [address]- 9784 Jul, [facility] [place] [facility] [address] [id number] [place] [address]- 8177 Jun, [facility] [place] [facility] [address] [id number] [place] [address]- 9202 Jun, [facility] [place] [facility] [address] [id number] [place] [address]- 9504 Jun, [facility] [place] [facility] [address] [id number] [place] [address]- 6899 Jun, [facility] [place] [facility] [address] [id number] [place] [address]- 7604 Jun, [facility] [place] [facility] [address] [id number] [place] [address]116 Jun, [facility] [place] [facility] [address] [id number] [place] [address]- 4168 Jun, [facility] [place] [facility] [address] [id number] [place] [address]- 1804 14 Jun, 2013 [facility] [place] [facility] [address] [id number] [place] [address]- 6263 Jun, [facility] [place] [facility] [address] [id number] [place] [address]- 0669 Jun, [facility] [place] [facility] [address] [id number] [place] [address]- 8632 May, [facility] [place] [facility] [address] [id number] [place] [address]- 3504 May, [facility] [place] [facility] [address] [id number] [place] [address]- 7469 May, [facility] [place] [facility] [address] [id number] [place] [address]- 7249 May, [facility] [place] [facility] [address] [id number] [place] [address]- 1648 May, [facility] [place] [facility] [address] [id number] [place] [address]- 0301 May, [facility] [place] [facility] [address] [id number] [place] [address]- 6423 20 May, 2013 [facility] [place] [facility] [address] [id number] [place] [address]- 2635 19 May, 2013 [facility] [place] [facility] [address] [id number] [place] [address]- 9307 19 May, 2013 [facility] [place] [facility] [address] [id number] [place] [address]- 6326 May, [facility] [place] [facility] [address] [id number] [place] [address]- 6976 18 May, 2013 [facility] [place] [facility] [address] [id number] [place] [address]- 4336 17 May, 2013 [facility] [place] [facility] [address] [id number] [place] [address]- 4611 May, [facility] [place] [facility] [address] [id number] [place] [address]- 5806 May, [facility] [place] [facility] [address] [facility] [id number] [place] [address]- 6652 May, [facility] [place] [facility] [address] [id number] [place] [address]- 9368 May, [facility] [place] [facility] [address] [id number] [place] [address]- 9433 07 May, 2013 [facility] [place] [facility] [address] [facility] [id number] [place] [address]- 2964 Apr, [facility] [place] [facility] [address] [facility] [id number] [place] [address]- 7637 Apr, [facility] [place] [facility] [address] [id number] [place] [address]- 3804 Apr, [facility] [place] [facility] [address] [id number] [place] [address]- 1633 Apr, [facility] [place] [facility] [address] [id number] [place] [address]- 7306 Apr, [facility] [place] [facility] [address] [facility] [id number] [place] [address]- 6826 07 Apr, 2013 [facility] [place] [facility] [address] [id number], [place] [address]- 0405 Apr, [facility] [address] [id number] [place] [address]- 2044 Mar, [facility] [place] [facility] [address] [id number] [place] [address]- 4716 Mar, [facility] [place] [facility] [address] [facility] [id number] [place] [address]- 5756 Mar, [facility] [place] [facility] [address] [id number] [place] [address]- 5315 Mar, [facility] [address] [id number] [place] [address]- 0061 Mar, [facility] [place] [facility] [address] [id number] [place] [address]- 0737 Mar, [facility] [place] [facility] [address] [id number] [place] [address]- 1157 Mar, [facility] [place] [facility] [address] [id number], [place] [address]- 4729 Mar, [facility] [place] [facility] [address] [id number] [place] [address]- 2244 Mar, [facility] [place] [facility] [address] [id number], [place] [address]- 1242 Mar, [facility] [place] [facility] [address] [id number], [place] [address]- 5496 Mar, [facility] [place] [facility] [address] [id number], [place] [address]- 2384 Feb, [facility] [place] [facility] [address] [id number] [place] [address]- 2545 Feb, [facility] [place] [facility] [address] [id number], [place] [address]- 2774 Feb, [facility] [place] [facility] [address] [id number], [place] [address]- 2541 Feb, [facility] [place] [facility] [address] [id number] [place] [address]- 0403 19 Feb, 2013 [facility] [place] [facility] [address] [id number] [place] [address]- 3691 19 Feb, 2013 [facility] [place] [facility] [address] [id number] [place] [address]- 3174 15 Feb, 2013 [facility] [place] [facility] [address] [id number] [place] [address]- 6785 14 Feb, 2013 [facility] [place] [facility] [address] [id number] [place] [address]- 8917 14 Feb, 2013 [facility] [place] [facility] [address] [id number] [place] [address]- 4016 13 Feb, 2013 [facility] [place] [facility] [address] [id number] [place] [address]- 1641 Feb, [facility] [place] [facility] [address] [id number] [place] [address]- 6384 Feb, [facility] [place] [facility] [address] [id number] [place] [address]- 3791 12 Feb, 2013 [facility] [place] [facility] [address] [id number] [place] [address]- 2409 Feb, [facility] [place] [facility] [address] [facility] [id number] [place] [address]- 9491 Feb, [facility] [place] [facility] [address] [id number] [place] [address]- 1564 Feb, [facility] [place] [facility] [address] [id number] [place] [address]- 0647 Jan, [facility] [place] [facility] [address] [id number] [place] [address]- 7850 Jan, [facility] [place] [facility] [address] [id number] [place] [address]- 6900 Jan, [facility] [place] [facility] [address] [id number] [place] [address]- 4802 Jan, [facility] [place] [facility] [address] [id number] [place] [address]- 4407 Jan, [facility] [place] [facility] [address] [id number] [place] [address]- 3815 Jan, [facility] [place] [facility] [address] [id number] [place] [address]- 9563 Jan, [facility] [place] [facility] [address] [id number] [place] [address]- 7399 Jan, [facility] [place] [facility] [address] [id number] [place] [address]- 4768 10 Jan, 2013 [facility] [place] [facility] [address] [id number] [place] [address]- 2892 27 Dec, 2012 [facility] [place] [facility] [address] [id number] [place] [address]- 9252 20 Dec, 2012 [facility] [place] [facility] [address] [id number] [place] [address]- 9704 19 Dec, 2012 [facility] [place] [facility] [address] [id number] [place] [address]- 4276 10 Dec, 2012 [facility] [place] [facility] [address] [id number] [place] [address]- 4822 04 Dec, 2012 [facility] [place] [facility] [address] [id number] [place] [address]- 8643 Dec, [facility] [place] [facility] [address] [id number] [place] [address]- 8416 Nov, [facility] [place] [facility] [address] [id number] [place] [address]- 9912 Nov, [facility] [place] [facility] [address] [id number] [place] [address]- 7611 Nov, [facility] [place] [facility] [address] [id number] [place] [address]- 5843 Nov, [facility] [place] [facility] [address] [id number] [place] [address]- 0573 Nov, [facility] [place] [facility] [address] [id number] [place] [address]- 9114 Nov, [facility] [place] [facility] [address] [id number] [place] [address]- 7810 Nov, [facility] [place] [facility] [address] [id number] [place] [address]- 2385 Nov, [facility] [place] [facility] [address] [id number] [place] [address]- 2342 Nov, [facility] [place] [facility] [address] [id number] [place] [address]- 7617 Nov, [facility] [place] [facility] [address] [id number] [place] [address]- 2613 Oct, [facility] [place] [facility] [address] [id number] [place] [address]- 3234 Oct, [facility] [place] [facility] [address] [id number] [place] [address]- 5471 Oct, [facility] [place] [facility] [address] [id number] [place] [address]- 4373 Oct, [facility] [place] [facility] [address] [id number] [place] [address]- 8144 Oct, [facility] [place] [facility] [address] [id number] [place] [address]- 4404 Oct, [facility] [place] [facility] [address] [id number] [place] [address]- 8939 Oct, [facility] [place] [facility] [address] [id number] [place] [address]- 5048 Oct, [facility] [place] [facility] [address] [id number] [place] [address]- 5586 Sep, [facility] [place] [facility] [address] [id number] [place] [address]- 1748 Sep, [facility] [place] [facility] [address] [id number] [place] [address]- 0839 Sep, [facility] [address] [id number] [place] [address] Sep, [facility] [address] [id number] [place] [address] Sep, [facility] [address] [id number] [place] [address] Sep, [facility] [address] [id number] [place] [address] Sep, [facility] [address] [id number] [place] [address] Sep, [facility] [address] [id number] [place] [address] August, [facility] [address] [id number] [place] [address] August, [facility] [address] [id number] [place] [address] August, [facility] [address] [id number] [place] [address] August, [facility] [address] [id number] [place] [address] August, [facility] [address] [id number] [place] [address] Jul, [facility] [address] [id number] [place] [address] Jul, [facility] [address] [id number] [place] [address] 8968 Jul, [facility] [address] [id number] [place] [address] Jul, [facility] [address] [id number] [place] [address] Jul, [facility] [address] [id number] [place] [address] 18 Jun, 2012 [facility] [place] [facility] [address] [id number] [place] [address]- [address] 18 Jun, 2012 [facility] [place] [facility] [address] [id number] [place] [address]- [address] 15 Jun, 2012 [facility] [place] [facility] [address] [id number] [place] [address]- [address]60 14 Jun, 2012 [facility] [address] [id number] [place] [address] Jun, [facility] [place] [facility] [address] [id number] [place] [address] Jun, [facility] [place] [facility] [address] [id number] [place] [address]- [address] Jun, [facility] [place] [facility] [address] [id number] [place] [address]- [address] Jun, [facility] [place] [facility] [address] [id number] [place] [address]98 Jun, [facility] [place] [facility] [address] [id number] [place] [address] May, [facility] [place] [facility] [address] [id number] [place] [address] May, [facility] [place] [facility] [address] [id number], [place] [address] May, [facility] [place] [facility] [address] [id number] [place] [address] May, [facility] [place] [facility] [address] [id number] [place] [address] Apr, [facility] [place] [facility] [address] [id number] [place] [address] Apr, [facility] [place] [facility] [address] [id number] [place] [address]- [address] Apr, [facility] [address] [id number] [place] [address] Apr, [facility] [address] [id number] [place] [address] Apr, [facility] [address] [id number] [place] [address] Apr, [facility] [address] [id number] [place] [address] Apr, [facility] [address] [id number] [place] [address] Mar, [facility] [address] [place] [id number] Mar, [facility] [address] [id number] [place] [address]- [address] Mar, [facility] [address] [id number] [place] [address] Mar, [facility] [address] [id number] [place] [address]671 Mar, [facility] [address] [id number] [place] [address] Mar, [facility] [address] [id number] [place] [address] 95[address] Mar, [facility] [address] [id number] [place] [address] Mar, [facility] [address] [id number] [place] [address] Mar, [facility] [address] [id number] [place] [address]- 9192 Mar, [facility] [address] [id number] [place] [address] 1391 Mar, [facility] [place] [facility] [address] [id number] [place] [address]- [address] Mar, [facility] [place] [facility] [address] [id number] [place] [address] Mar, [facility] [place] [facility] [address] [id number] [place] [address]- [address]156 Mar, [facility] [place] [facility] [address] [id number] [place] [address]- 0744 Mar, [facility] [place] [facility] [address] [id number] [place] [address]- 8792 Mar, [facility] [place] [facility] [address] [id number] [place] [address] Mar, [facility] [place] [facility] [address] [id number] [place] [address]- [address] Feb, [facility] [place] [facility] [address] [id number] [place] [address]- [address]561 Feb, [facility] [place] [facility] [address] [id number] [place] [address]- 7461 Feb, [facility] [place] [facility] [address] [id number] [place] [address]- 1484 Feb, [facility] [place] [facility] [address] [id number] [place] [address]- 3566 Feb, [facility] [place] [facility] [address] [id number] [place] [address]- 0063 Feb, [facility] [place] [facility] [address] [id number] [place] [address] 3401 Feb, [facility] [place] [facility] [address] [id number] [place] [address]- 3629 Feb, [facility] [place] [facility] [address] [id number] [place] [address] Feb, [facility] [place] [facility] [address] [id number] [place] [address]- 6124 Feb, [facility] [place] [facility] [address] [id number] [place] [address]- 7466 Feb, [facility] [place] [facility] [address] [id number] [place] [address]- 1286 Feb, [facility] [place] [facility] [address] [id number] [place] [address]- 1551 Feb, [facility] [place] [facility] [address] [id number] [place] [address]- 4981 Feb, [facility] [place] [facility] [address] [id number] [place] [address]- 0939 Feb, [facility] [place] [facility] [address] [id number] [place] [address]- 6499 Feb, [facility] [place] [facility] [address] [facility] [id number] [place] [address]- [address] Jan, [facility] [place] [facility] [address] [id number], [place] [address]- [address]66 Jan, [facility] [place] [facility] [address] [id number] [place] [address]- 8615 Jan, [facility] [place] [facility] [address] [id number], [place] [address]- [address]90 Jan, [facility] [place] [facility] [address] [id number], [place] [address]- [address] Jan, [facility] [facility] [address] [id number], [place] [address] Jan, [facility] [address] [id number], [place] [address] Jan, [facility] [address] [id number], [place] [address] Jan, [facility] [address] [facility] [id number], [place] [address] Jan, [facility] [place] [facility] [address] [id number] [place] [address] 17 Jan, 2012 [facility] [place] [facility] [address] [id number] [place] [address] 8436 12 Jan, 2012 [facility] [place] [facility] [address] [id number] [place] [address]272 12 Jan, 2012 [facility] [place] [facility] [address] [id number] [place] [address] 6860 11 Jan, 2012 [facility] [place] [facility] [address] [id number] [place] [address] 8890 11 Jan, 2012 [facility] [place] [facility] [address] [id number] [place] [address] 08 Jan, 2012 [facility] [place] [facility] [address] [id number] [place] [address]- 5969 05 Jan, 2012 [facility] [place] [facility] [address] [id number] [place] [address] 04 Jan, 2012 [facility] [place] [facility] [address] [id number] [place] [address] 4[address] 21 Sep, 2011 [facility] [place] [facility] [address] [id number] [place] [address] 9861 20 Sep, 2011 [facility] [place] [facility] [address] [facility] [id number] [place] [address]- 0111 18 Sep, 2011 [facility] [place] [address] [id number] [place] [address] 5370 18 Sep, 2011 [facility] [address] [id number], [place] [address] 10 Sep, 2011 [facility] [place] [facility] [address] [id number] [place] [address] 2546 10 Sep, 2011 [facility] [place] [facility] [address] [facility] [id number] [place] [address]- 2546 10 Sep, 2011 [facility] [address] [facility] [id number] [place] [address] 1067 07 Sep, 2011 [facility] [place] [facility] [address] [id number] [place] [address] 1874 Nov, [facility] [place] [facility] [address] [id number] [place] [address]- 1806 Nov, [facility] [place] [facility] [address] [id number] [place] [address] 7326 Nov, [facility] [place] [facility] [address] [id number] [place] [address] 0746 Nov, [facility] [place] [facility] [address] [id number] [place] [address] 7748 Nov, [facility] [place] [facility] [address] [id number] [place] [address] Nov, [facility] [place] [facility] [address] [id number] [place] [address] 1144 Oct, [facility] [place] [facility] [address] [id number] [place] [address] 8964 Oct, [facility] [place] [facility] [address] [id number] [place] [address] 7815 Oct, [facility] [place] [facility] [address] [id number] [place] [address]- 6564 Oct, [facility] [place] [facility] [address] [id number] [place] [address]- 8352 Oct, [facility] [place] [address] [id number] [place] [address] 1536 Oct, [facility] [place] [facility] [address] [id number] [place] [address]- 6983 Oct, [facility] [place] [address] [id number] [place] [address]- 3958 Sep, [facility] [place] [address] [id number] [place] [address]- 0272 Sep, [facility] [place] [facility] [address] [id number] [place] [address] 2805 Sep, [facility] [place] [facility] [address] [id number] [place] [address] 2226 20 Sep, 2011 [facility] [place] [address] [id number] [place] [address]- 7143 19 Sep, 2011 [facility] [place] [address] [id number] [place] [address]- 5717 15 Sep, 2011 [facility] [place] [address] [id number] [place] [address]- 1135 14 Sep, 2011 [facility] [address] [id number] [place] [address]- 2491 Sep, [facility] [address] [id number] [place] [address]- 1394 05 Sep, 2011 [facility] [address] [id number] [place] [address]- 9014 Sep, [facility] [address] [id number] [place] [address] 3872 August, [facility] [address] [id number] [place] [address]- 9343 August, [facility] [address] [id number] [place] [address]- 6116 August, [facility] [address] [id number] [place] [address]- 8355 August, [facility] [address] [id number] [place] [address]- 1843 August, [facility] [address] [id number] [place] [address]- 53[address] Jul, [facility] [address] [id number] [place] [address]- 0604 Jul, [facility] [address] [id number] [place] [address]- 5054 Jul, [facility] [address] [id number] [place] [address]- 4786 17 Jul, 2011 [facility] [address] [id number] [place] [address]- 9946 Jul, [facility] [address] [id number] [place] [address] 2546 Jul, [facility] [address] [id number] [place] [address]- 8776 Jul, [facility] [address] [id number] [place] [address] 2543 29 Jun, 2011 [facility] [address] [id number] [place] [address]- 8360 Jun, [facility] [address] [id number] [place] [address]- 6816 Jun, [facility] [address] [id number] [place] [address] 0000 Jun, [facility] [address] [id number] [place] [address]- 3057 Jun, [facility] [address] [id number] [place] [address] 6009 May, [facility] [address] [id number] [place] [address]- 4437 May, [facility] [address] [id number] [place] [address]- 1431 May, [facility] [address] [id number] [place] [address]- 2549 May, [facility] [address] [id number] [place] [address]- 0178 May, [facility] [address] [id number] [place] [address]- 5141 May, [facility] [address] [id number] [place] [address] 9015 Apr, [facility] [address] [id number] [place] [address]- 4592 Mar, [facility] [address] [id number] [place] [address]- 4918 Feb, [facility] [address] [id number] [place] [address]- 5150 Feb, [facility] [address] [id number] [place] [address]- 2049 Feb, [facility] [address] [id number] [place] [address] Feb, [facility] [address] [id number] [place] [address]- 5498 Jan, [facility] [address] [id number] [place] [address]- 5249 Jan, [facility] [address] [id number] [place] [address]- 5303 Jan, [facility] [address] [id number] [place] [address]- 4592 24 Jan, 2011 [facility] [address] [id number], [place] [address]- 2159 14 Jan, 2011 [facility] [address] [id number], [place] [address]- 6302 Dec, [facility] [address] [id number], [place] [address]- 2234 Oct, [facility] [address] [id number] [place] [address]- 8685 August, [facility] [address] [id number], [place] [address]- 1455 Mar, [facility] [address] [id number], [place] [address]- 4281 Mar, [facility] [address] [id number] [place] [address]- 4694 16 Mar, 2010 [facility] [address] [id number] [place] [address]- 4076 15 Mar, 2010 [facility] [address] [id number] [place] [address]- 2836 15 Mar, 2010 [facility] [address] [id number] [place] [address] 2546 08 Mar, 2010 [facility] [address] [id number] [place] [address] 2546 03 Mar, 2010 [facility] [address] [id number] [place] [address]- 6291 Feb, [facility] [address] [id number] [place] [address]- 9814 Feb, [facility] [address] [facility] [id number] [place] [address]- 2520 Feb, [facility] [address] [id number] [place] [address]- 8332 Jan, [facility] [address] [id number] [place] [address]- 1215 Jan, [facility] [address] [facility] [id number] [place] [address]- 5973 Jan, [facility] [address] [id number] [place] [address]- 6036 Nov, [facility] [address] [id number], [place] [address]- 0506 14 Sep, 2009 [facility] [address] [id number] [place] [address]- 8659 August, [facility] [address] [facility] [id number] [place] [address] 2546 30 Mar, 2009 [facility] [address] [id number], [place] [address]- 3810 Mar, [facility] [place] [address] [facility] [id number], [place] [address]- 2612 Feb, [facility] [place] [address] [facility] [id number], [place] [address]- 5754 Feb, [facility] [place] [address] [facility] [id number], [place] [address]- 8745 Feb, [facility] [place] [id number] [place] [address]- 9163 Feb, [facility] [place] [address] [facility] [id number], [place] [address]- 2248 Feb, [facility] [place] [id number] [place] [address]- 0600 Jan, [facility] [place] [id number], [place] [address]- 4578 Jan, [facility] [place] [id number] [place] [address]- 2662 Jan, [facility] [place] [id number], [place] [address]- 5398 Jan, [facility] [place] [address] 1758 Nov, [facility] [place] [address]65[address], [place] [address]- 8391 Sep, [facility] [place] [address]65[address], [place] [address]- 4070 August, [facility] [place] [address] [id number], [place] [address]- 9248 Jul, [facility] [place] [address]65[address], [place] [address]- 3802 May, IMMUNIZATIONS No Known Immunizations SOCIAL HISTORY Never Assessed REASON FOR VISIT [facility] follow up from left and left hand swelling-Javi GALE PLAN OF CARE VITAL SIGNS Height 64 in 2017-10-16 Weight 151.7 lbs 2017-10-16 Temperature 98.4 degrees Fahrenheit 2017-10-16 Heart Rate 92 bpm 2017-10-16 Respiratory Rate 18 2017-10-16 BMI 26.04 kg/m2 2017-10-16 Blood pressure systolic 118 mmHg 2017-10-16 Blood pressure diastolic 70 mmHg 2017-10-16 MEDICATIONS Medication Instructions Dosage Frequency Start Date End Date Duration Status Calcium Orally Once a day 1 tablet with D3 800 24h Active Sertraline HCl 100 MG Orally Once a day 1 tablet 24h Active Neurontin 400 mg Orally Three times a day 1 capsule 8h August, 30 day(s) Active Ranitidine HCl 150 MG Orally 2 times a day 1 tablet at bedtime 12h Active Pantoprazole Sodium 40 MG Orally 2 times a day 1 tablet 12h Active Diltiazem HCl ER 240 MG Orally Once a day 1 capsule 24h Active Namenda 10 mg TAKE 1 TABLET EVERY DAY 90 days Active Zofran ODT 4 mg Orally every 4 hrs PRN 1 tablet on the tongue and allow to dissolve Jul, Active Lamictal 25 MG Orally every night 3 tablets Apr, Active Polyethylene Glycol 3350 - Orally in water or juice Once a day in the pm 17 grams Jul, 30 days Not-Taking Carafate 1 GM Orally 4 times a day PRN 1 tablet Active Singulair 10 MG TAKE 1 TABLET ONE TIME DAILY 90 Active Magnesium 400 MG Orally Once a day 1 tablet 24h Active Ropinirole HCl 2 MG TAKE 1 TABLET ONE TIME DAILY AT BEDTIME 90 Active Eliquis 5 MG Orally 2 times a day 12h Active Abilify 10 MG TAKE 1 TABLET ONE TIME DAILY 90 Active Nitroglycerin 0.4 MG Active Clonazepam 1 MG Orally Once a day 1 tablet 24h Active Omeprazole 40 mg Orally 2 times a day 1 capsule 12h Active Oxybutynin Chloride ER 10 MG Orally Once a day 1 tablet 24h Active Glucometer 1 test blood sugar Jul, Active Welchol 625 MG Orally twice a day 2 tablets 12h Active Lasix 20 mg Orally Once a day 1 tablet 24h Oct, 30 day(s) Active BusPIRone HCl 5 MG Orally Three times a day 1 tablet 8h Active Symbicort 160-4.5 MCG/ACT INHALE 2 PUFFS TWICE DAILY, IN THE MORNING AND IN THE EVENING 90 Active Farxiga 5 mg Orally Once a day 1 tablet 24h Jul, Oct, 30 day(s) Active Naproxen 250 MG Orally Twice a day PRN migraines 1 tablet with food or milk Active Baclofen 20 TAKE ONE TABLET BY MOUTH THREE TIMES DAILY WITH FOOD OR MILK 30 Active Vitamin D 50,000 Orally once a week 1 tablet Active Baclofen 20 MG TAKE ONE TABLET BY MOUTH THREE TIMES DAILY WITH FOOD OR MILK 30 Active Ventolin HFA 108 (90 Base) MCG/ACT INHALE 2 PUFFS EVERY 4 HOURS NEEDED 16 Active Sumatriptan Succinate 100 MG Orally Twice a day 1 tablet as needed 12h Not-Taking Albuterol Sulfate 2.5 mg /3 mL (0.083 %) 1 Each by Inhalation route every 4 hours for cough and wheeze PRN for wheezing or cough Jun, Active Remeron 45 MG Orally Once a day at bedtime 1 tablet Feb, Active Xifaxan 550 MG Orally Three times a day 1 tablet 8h Active Keflex 500 mg Orally 3 times a day 1 capsule 8h Oct, Oct, 10 day(s) Active Spiriva HandiHaler 18 MCG Inhalation Once a day 1 capsule 24h Active Trazodone HCl 150 MG Orally Once a day 1 tablet at bedtime 24h Active Lomotil 2.5-0.025 mg Orally Four times a day PRN loose stools TWO TABLETS Active Melatonin 5 MG Orally Once a day 1 tablet at bedtime as needed with food 24h Jun, 30 day(s) Not-Taking Oxygen 5 inhalation all the time Active Benefiber - Active Alendronate Sodium 70 MG TAKE 1 TABLET EVERY WEEK Active RESULTS No Results PROCEDURES Procedure Date Ordered Result Body Site [facility] VISIT ESTABLISHED PATIENT October 16, 2017 INSTRUCTIONS MEDICATIONS ADMINISTERED No Known Medications [...] Knee Surgery 07/16/17 Hospitalization History [facility]- left hand/wrist swelling 10/09/2017
--- OUTSIDE RECORDS SUMMARY | 2018-01-01 11:30 | XMS REPORT ---
Author Author SENAIT DUNLAP [facility] Address [address] [place] [address] Care Team Providers Care Superintendent Service Name Role Phone SENAIT DUNLAP Unavailable PROBLEMS Type Condition ICD9-CM Code NPP49-OJ Code Onset Dates Condition Status SNOMED Code Problem 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 Active 57460372 Problem Colon polyp K63.5 Active 79073812 Problem Screening breast examination Z12.39 Active 895413858 Problem Bilateral low back pain without sciatica M54.5 Active 181230953 Problem Postmenopausal Z78.0 Active 87847360 Problem Essential tremor G25.0 Active 99793748 Problem Osteopenia M85.80 Active 377201650 Problem Hyperlipidemia E78.5 Active 27331034 Problem Cigarette nicotine dependence without complication F17.210 Active 94133804 Problem Vascular dementia without behavioral disturbance F01.50 Active [id number] Problem Arthritis M19.90 Active 2871121 Problem Chronic atrial fibrillation I48.2 Active 697166513 Problem Dementia without behavioral disturbance, unspecified dementia type F03.90 Active 24576699 Problem Other chronic pancreatitis K86.1 Active 087671849 Problem Xeroderma Q80.9 Active 13187533 Problem Chronic obstructive pulmonary disease with acute lower respiratory infection J44.0 Active 080385524 Problem Type 2 diabetes mellitus with diabetic neuropathy, without long-term current use of insulin E11.40 Active 46962930 Problem Atherosclerosis of [place] artery of both lower extremities with intermittent claudication I70.213 Active 621951672151344 Problem Hammertoe of right foot M20.41 Active 277408373 Problem Hammertoe of left foot M20.42 Active 368673707 Problem Migraine without aura and with status migrainosus, not intractable G43.001 Active 140289747 Problem Migraine without aura and without status migrainosus, not intractable G43.009 Active 862936366 Problem Major depressive disorder, recurrent episode, moderate F33.1 Active 532870352 Problem Unspecified psychosis F29 Active 01763887 Problem Cervicalgia M54.2 Active 9637191504820 Problem Diabetic polyneuropathy associated with type 2 diabetes mellitus E11.42 Active 74678104 Problem COPD (chronic obstructive pulmonary disease) J44.9 Active 52126174 Problem 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.118 Active 8544712847894 Problem Gastroparesis K31.84 Active 274135648 Problem Stress incontinence of urine N39.3 Active 09524235 Problem Osteoporosis M81.0 Active 32172484 Problem Controlled type 2 diabetes mellitus without complication, without long -term current use of insulin E11.9 Active 812989416 Problem Barretts esophagus K22.70 Active 355921851 Problem Chronic fatigue R53.82 Active 63140550 Problem History of common bile duct surgery Z98.89 Active 980990320 Problem Bipolar affective disorder, currently depressed, moderate F31.32 Active 039704256 Problem Generalized anxiety disorder F41.1 Active 685181547 Problem Gastroesophageal reflux disease, esophagitis presence not specified K21.9 Active 883515460 Problem Coronary artery disease involving [place] coronary artery of [place] 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 I25.118 Active 0387986644022 Problem Postconcussion syndrome F07.81 Active 06417880 Problem Chronic pain syndrome G89.4 Active 276932653 Problem Type 2 diabetes mellitus with diabetic peripheral angiopathy without gangrene E11.51 Active 290567763 Problem Paroxysmal atrial fibrillation I48.0 Active 349881131 Problem Unspecified atherosclerosis of [place] arteries of extremities, unspecified extremity I70.209 Active 881080531420303 Problem Acute exacerbation of chronic obstructive pulmonary disease (COPD) J44.1 Active 259667148 Problem Crohn''s disease without complication, unspecified gastrointestinal tract location K50.90 Active 69962140 ALLERGIES No Information ENCOUNTERS Encounter Location Date Diagnosis [facility] [address] [facility] [id number], [place] [address] Feb, [facility] [address] [facility] [id number], [place] [address] Nov, [facility] [address] [facility] [id number], [place] [address] Nov, Onychomycosis B35.1 ; Hammertoe of left foot M20.42 ; Hammertoe of right foot M20.41 and Type 2 diabetes mellitus with diabetic neuropathy, without long-term current use of insulin E11.40 [facility] [address] [place] [id number] [place] [address] 87286- 7542 Nov, [facility] [address] [place] [id number] [place] [address] 25322- 1408 Nov, Bronchitis J40 [facility] [address] [id number] [place] [address] 88653- 1192 Oct, [facility] [address] [place] [id number] [place] [address] 16281- 2494 Oct, Bipolar affective disorder, currently depressed, moderate F31.32 ; Vascular dementia without behavioral disturbance F01.50 and Generalized anxiety disorder F41.1 [facility] [id number] [place] [address] 81603- 5398 Oct, [facility] [address] [place] [id number] [place] [address] 79289- 0036 Oct, [facility] [address] [place] [id number] [place] [address] 34149- 5784 Oct, Edema of both legs R60.0 [facility] [id number] [place] [address] 01449- 0295 Oct, [place] [facility] [id number] [place] [address] 93490- 3206 Sep, [facility] [address] [place] [id number] [place] [address] 66876- 3549 Sep, [facility] [id number] [place] [address] 61599- 7578 Sep, [facility] [id number] [place] [address] 49974- 2946 Sep, Encounter for well woman exam with routine gynecological exam Z01.419 ; Screening for STDs (sexually transmitted diseases) Z11.3 ; Screening breast examination Z12.31 and Overweight (BMI 25.0-29.9) E66.3 [facility] [address] [address] Sep, [facility] [id number] [place] [address] 20070- 2736 Sep, [facility] [id number] [place] [address] 00778- 8389 Sep, [facility] [id number] [place] [address] 78847- 9882 August, [facility] [id number] [place] [address] 34898- 7347 August, [facility] [id number] [place] [address] 37723- 3009 August, Type 2 diabetes mellitus with diabetic neuropathy, without long-term current use of insulin E11.40 and Sprain of right ankle, unspecified ligament, initial encounter S93.401A [facility] [id number] [place] [address] 67766- 3356 August, [facility] [id number] [place] [address] 99889- 2149 August, [facility] [address] [place] [address] 49333- 1431 August, [facility] [id number] [place] [address] 80254- 6925 August, Gastroesophageal reflux disease, esophagitis presence not specified K21.9 [facility] [address], [place] [address] 5877 August, [facility] [id number] [place] [address] 44111- 0389 August, [facility] [address], [place] [address] 4867 August, [facility] [id number] [place] [address] 93152- 8701 August, Type 2 diabetes mellitus with diabetic neuropathy, without long-term current use of insulin E11.40 and Elevated liver enzymes R74.8 [facility] [id number] [place] [address] 19321- 2791 Jul, [facility] [id number] [place] [address] 68128- 9218 Jul, Cough R05 [facility] [id number] [place] [address] 11900- 6330 Jul, [facility] [id number] [place] [address] 47282- 4339 Jul, [facility] [id number] [place] [address] 23847- 3335 Jul, Bipolar affective disorder, currently depressed, moderate F31.32 ; Vascular dementia without behavioral disturbance F01.50 and Generalized anxiety disorder F41.1 [facility] [id number] [place] [address] 85373- 2398 Jul, [facility] [id number] [place] [address] 29424- 8881 Jul, Type 2 diabetes mellitus with diabetic neuropathy, without long-term current use of insulin E11.40 and Elevated liver enzymes R74.8 [facility] [address] [place] [address] 02470- 7959 Jul, [facility] [id number] [place] [address] 74849- 9647 Jul, [facility] [id number] [place] [address] 24845- 0536 Jul, [facility] [id number] [place] [address] 47820- 4033 Jul, Post-menopausal Z78.0 [facility] [id number] [place] [address] 86541- 0871 Jul, Stress incontinence of urine N39.3 [facility] [id number] [place] [address] 28093- 9403 Jul, [facility] [address] 47024- 1595 Jul, [facility] [id number] [place] [address] 12799- 1759 Jul, Stress incontinence of urine N39.3 and Cough R05 [facility] [address] 06659- 6470 Jul, [facility] [id number] [place] [address] 00346- 1801 Jul, [facility] [address] 57453- 7170 Jul, [facility] [address] 93236- 3876 Jul, Gastroesophageal reflux disease, esophagitis presence not specified K21.9 [facility] [id number] [place] [address] 54250- 5039 Jun, Diabetic polyneuropathy associated with type 2 diabetes mellitus E11.42 [facility] [id number] [place] [address] 25525- 2794 Jun, Diabetic polyneuropathy associated with type 2 diabetes mellitus E11.42 ; Coronary artery disease involving [place] coronary artery of [place] 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 I25.118 and Paroxysmal atrial fibrillation I48.0 [facility] [id number] [place] [address] 18999- 2708 Jun, [facility] [id number] [place] [address] 95191- 4728 Jun, [facility] [id number] [place] [address] 68574- 6152 Jun, Gastroenteritis K52.9 [facility] [address] 13630- 8758 Jun, Gastroenteritis K52.9 [facility] [address], [place] [address]- 1246 Jun, [facility] [id number] [place] [address] 78795- 6422 Jun, [facility] [id number] [place] [address] 60249- 7343 Jun, Sprain of right ankle, unspecified ligament, initial encounter S93.401A ; Type 2 diabetes mellitus with diabetic neuropathy, without long-term current use of insulin E11.40 ; Atherosclerosis of [place] artery of both lower extremities with intermittent claudication I70.213 ; 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.118 ; Chronic atrial fibrillation I48.2 and Crohn''s disease without complication, unspecified gastrointestinal tract location K50.90 [facility] [address] [place] [address] 14524 -2436 17 Jun, 2017 Cough R05 and Chronic obstructive pulmonary disease with acute lower respiratory infection J44.0 [facility] [id number] [place] [address] 81958- 9067 16 Jun, 2017 [facility] [id number] [place] [address] 04740- 1407 15 Jun, 2017 Coughing R05 ; Unspecified atherosclerosis of [place] arteries of extremities, unspecified extremity I70.209 ; Type 2 diabetes mellitus with diabetic peripheral angiopathy without gangrene E11.51 ; Crohn''s disease without complication, unspecified gastrointestinal tract location K50.90 ; Other chronic pancreatitis K86.1 and Chronic atrial fibrillation I48.2 [facility] [address], [place] [address] Jun, [facility] [id number] [place] [address] 53601- 5227 06 Jun, 2017 Bipolar affective disorder, currently depressed, moderate F31.32 ; Vascular dementia without behavioral disturbance F01.50 and Generalized anxiety disorder F41.1 [facility] [id number] [place] [address] 28496- 1125 May, Generalized anxiety disorder F41.1 [facility] [id number] [place] [address] 96597- 6540 May, [facility] [id number] [place] [address] 10756- 7716 May, [facility] [id number] [place] [address] 74766- 7382 May, Coughing R05 [facility] [id number] [place] [address] 20732- 7075 May, [facility] [id number] [place] [address] 55804- 5733 May, Bipolar affective disorder, currently depressed, moderate F31.32 ; Vascular dementia without behavioral disturbance F01.50 and Generalized anxiety disorder F41.1 [facility] [address] [place] [address] 77144- 6114 Apr, Generalized anxiety disorder F41.1 [facility] [address] [place] [address] 74097- 3670 Apr, [facility] [address] [place] [address] 36530- 6850 Apr, Vascular dementia without behavioral disturbance F01.50 ; Generalized anxiety disorder F41.1 and Bipolar affective disorder, currently depressed, moderate F31.32 [facility] [id number] [place] [address] 50728- 7506 Apr, Generalized anxiety disorder F41.[address] [facility] [id number] [place] [address] 10741 -5371 Apr, Cough R05 and Acute exacerbation of chronic obstructive pulmonary disease (COPD) J44.1 [facility] [id number] [place] [address] 84799- 0592 Apr, [facility] [id number] [place] [address] 46002 -9253 Mar, Cough R05 and Cigarette nicotine dependence without complication F17.210 [facility] [address] 26103- 5588 Mar, [facility] [address] 93146- 8507 Feb, Generalized anxiety disorder F41.1 ; Major depressive disorder, recurrent episode, moderate F33.1 ; Vascular dementia without behavioral disturbance F01.50 and Unspecified psychosis F29 [facility] [address] [place] [address] 69334- 9653 Feb, [facility] [address] 77651- 2252 Feb, [facility] [address] 49747- 1533 Feb, Generalized anxiety disorder F41.1 [facility] [address] 68461- 8881 Feb, Generalized anxiety disorder F41.1 [facility] [address] [place] [address] 62890- 8008 Feb, Dizziness R42 ; Chronic fatigue R53.82 ; Postconcussion syndrome F07.81 ; Fall, initial encounter W19.XXXA and Disorientation R41.0 [facility] [address] 31777- 5275 Feb, Postconcussion syndrome F07.81 ; Injury of head, initial encounter S09.90XA ; Fall, initial encounter W19.XXXA ; Disorientation R41.0 and Acute cystitis with hematuria N30.01 [facility] [address] [place] [address] 09279- 8981 Jan, Gastroesophageal reflux disease, esophagitis presence not specified K21.9 ; Post-menopausal Z78.0 and Migraine without aura and without status migrainosus, not intractable G43.009 [facility] [address] [place] [address] [place] [address]- 7436 Jan, [facility] [address] [place] [address] 50748- 9479 Jan, Generalized anxiety disorder F41.1 ; Major depressive disorder, recurrent episode, moderate F33.1 ; Vascular dementia without behavioral disturbance F01.50 and Unspecified psychosis F29 [facility] [id number] [place] [address] 05218- 2728 Jan, Pneumonia of left lower lobe due to infectious organism J18.1 [facility] [address] [place] [address] 17050- 8492 Jan, Migraine without aura and with status migrainosus, not intractable G43.001 [facility] [id number] [place] [address] 31949 -9865 Jan, Migraine without aura and without status migrainosus, not intractable G43.009 [facility] [address] [place] [address] 00479- 4090 Dec, Hematoma T14.8 [facility] [address] [place] [address] 92211- 9344 Dec, [facility] [id number] [place] [address] 27529 -0943 Nov, Fatigue, unspecified type R53.83 [facility] [address] [place] [address] 63011- 9114 Nov, Scabies B86 and Coronary artery disease involving [place] coronary artery of [place] 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 I25.118 [facility] [address] [place] [address] 47091- 5164 Nov, [facility] [address] [place] [address] 77702- 3582 Nov, [facility] [address] [place] [address] 72474- 2256 Oct, [facility] [address] [place] [address] 64948- 4531 Oct, Generalized anxiety disorder F41.1 and Major depressive disorder, recurrent episode, moderate F33.1 [facility] [address] [place] [address] 19535- 3966 Oct, Cramp of both lower extremities R25.2 [facility] [address] [place] [address] 64948- 4797 Oct, Leg cramps R25.2 [facility] [address] [place] [address] 61354- 2465 Oct, Chronic pain syndrome G89.4 [facility] [address] [place] [address] 53097- 5345 Oct, [facility] [address] [place] [address] 07493- 7203 Oct, [facility] [address] [place] [address] 98357- 2292 Oct, Routine gynecological examination Z01.419 and Screening for breast cancer Z12.31 [facility] [address] [place] [address] 63266- 8622 Sep, Diarrhea R19.7 [facility] [address] [place] [address] 54436- 3170 Sep, Back pain M54.9 [facility] [address] [place] [address] 99243- 5261 Sep, [facility] [address] [place] [address] 02630- 5392 Sep, [facility] [id number] [place] [address] 39468 -2119 August, Xeroderma Q80.9 [facility] [address] [place] [address] 90569- 6961 August, Dementia without behavioral disturbance, unspecified dementia type F03.90 [facility] [address] [place] [address] 24511- 9258 August, Chronic pain syndrome G89.4 [facility] [address] [place] [address] 39528- 8153 August, [facility] [address] 54471- 9006 August, Hyperlipidemia E78.5 ; Other fatigue R53.83 and Other specified hypotension I95.89 [facility] [address] 48595 -0470 August, Dysuria R30.0 ; Other fatigue R53.83 and Other specified hypotension I95.89 [facility] [address] 12828- 3620 August, [facility] [address] 45539- 5633 Jul, Pain in left knee M25.562 and Gastroenteritis K52.9 [facility] [address] 71740- 1151 Jul, [place] [facility] [address] 65848- 0046 Jul, Diarrhea R19.7 [facility] [place] [id number] [place] [address] 25258 -4079 Jul, Spider bite, accidental or unintentional, initial encounter T63.301A [facility] [address] 72361- 6138 Jul, Primary osteoarthritis of right knee M17.11 and Arthritis M19.90 [facility] [address] [place] [address] 70989- 4504 Jul, Generalized anxiety disorder F41.1 and Major depressive disorder, recurrent episode, moderate F33.1 [facility] [address] 08070- 3468 07 Jul, 2016 Type 2 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 and Temporal headache R51 [facility] [address] 07943- 4186 06 Jul, 2016 Back pain M54.9 [facility] [address] 35013- 3546 05 Jul, 2016 [facility] [address] 72919- 5431 Jul, [facility] [address] 28638- 1519 30 Jun, 2016 Nausea R11.0 [facility] [address] 42742 -6856 23 Jun, 2016 Acute suppurative otitis media of both ears without spontaneous rupture of tympanic membranes, recurrence not specified H66.003 and COPD exacerbation J44.1 [facility] [address] 37877- 8184 Jun, Generalized anxiety disorder F41.1 [place] [address] 81791- 6028 16 Jun, 2016 [facility] [place] [address] 10044 -2555 Jun, [facility] [address] 05118 -4935 Jun, Shortness of breath R06.02 and COPD exacerbation J44.1 [place] [facility] [address] 43496- 3337 10 Jun, 2016 Eczema, unspecified type L30.9 [place] [address] 84832- 9609 09 Jun, 2016 [place] [address] 13254- 7707 May, [place] [address] [place] [address]- 5605 May, Muscle cramping R25.2 [place] [address] 55755- 4706 May, [facility] [address] 70242- 3397 Apr, Diarrhea R19.7 [facility] [address] 67957- 8755 Apr, [place] [address] 19110- 3939 Apr, Chronic pain syndrome G89.4 [place] [address] 26877- 8991 Apr, Cramp of both lower extremities R25.2 and Vascular dementia without behavioral disturbance F01.50 [place] [address] 54473- 8673 Apr, Type 2 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 and Cigarette nicotine dependence without complication F17.210 [place] [address] 22319- 6924 Mar, Generalized anxiety disorder F41.1 [place] [address] 54664- 6137 Feb, Generalized anxiety disorder F41.1 and Major depressive disorder, recurrent episode, moderate F33.1 [facility] [id number] [place] [address] 72543- 7000 Feb, [facility] [address] 23248 -9512 Feb, Dysuria R30.0 and Acute cystitis with hematuria N30.01 [facility] [id number] [place] [address] 58464- 6456 Jan, [facility] [address] 46544- 3961 Jan, [facility] [id number] [place] [address] 77327- 9350 Jan, [facility] [id number] [place] [address] 13714- 5629 Jan, [facility] [id number] [place] [address] 90326 -6039 10 Jan, 2016 Wasp sting, accidental or unintentional, initial encounter T63.461A [facility] [id number] [place] [address] 47423- 9243 06 Jan, 2016 Encounter for immunization Z23 [facility] [id number] [place] [address] 57851- 3372 05 Jan, 2016 [facility] [id number] [place] [address] 70124- 2220 Jan, [facility] [id number] [place] [address] 93854- 2986 28 Dec, 2015 Generalized anxiety disorder F41.1 and Major depressive disorder, recurrent episode, moderate F33.1 [facility] [id number] [place] [address] 39105- 8503 21 Dec, 2015 Routine gynecological examination Z01.419 ; Postmenopausal Z78.0 ; Screening breast examination Z12.39 ; Osteopenia M85.80 and Breast cancer screening Z12.39 [facility] [id number] [place] [address] 95307- 5656 20 Dec, 2015 [facility] [id number] [place] [address] 33383- 0130 19 Dec, 2015 [facility] [id number] [place] [address] 10135- 3212 16 Dec, 2015 [facility] [id number] [place] [address] 25549- 6143 16 Dec, 2015 [facility] [id number] [place] [address] 99191- 4460 Dec, [facility] [address], [place] [address]- 0020 Dec, [facility] [address], [place] [address]- 3766 Nov, [facility] [address], [place] [address] Nov, Cough R05 ; Other viral agents as the cause of diseases classified elsewhere B97.89 and Acute upper respiratory infection, unspecified J06.9 [facility] [address] [place] [address]- 0211 Nov, [facility] [id number] [place] [address] 15655- 1841 Nov, [facility] [address], [place] [address]- 5907 Nov, [facility] [address] [address]- 4447 Nov, [facility] [address], [place] [address]- 5199 Nov, [facility] [address], [place] [address]- 8396 Oct, [facility] [address], [place] [address]- 6788 Oct, [facility] [address], [place] [address]- 6258 Oct, [facility] [address], [place] [address]- 4862 Oct, Chronic pain syndrome G89.4 [facility] [address], [place] [address]- 8531 Sep, Generalized anxiety disorder F41.1 and Major depressive disorder, recurrent episode, moderate F33.1 [facility] [id number] [place] [address] 95175- 8361 Sep, [facility] [address], [place] [address]- 3164 Sep, [facility] [id number] [place] [address] 71883- 0121 14 Sep, 2015 Generalized anxiety disorder F41.1 [facility] [id number] [place] [address] 35081- 0370 13 Sep, 2015 Cramp of both lower extremities R25.2 and Cervicalgia M54.2 [facility] [id number] [place] [address] 97227- 0949 06 Sep, 2015 Generalized anxiety disorder F41.1 [facility] [id number] [place] [address] 04270- 5669 Sep, [facility] [id number] [place] [address] 16038 -3054 August, Rash R21 ; Itching L29.9 and Allergic response, subsequent encounter T78.40XD [facility] [id number] [place] [address] 38214- 0406 August, Primary insomnia F51.01 [facility] [id number] [place] [address] 91950 -4544 August, Rash R21 ; Itching L29.9 and Allergic response, initial encounter T78.40XA [facility] [id number] [place] [address] 28538- 3195 August, [facility] [id number] [place] [address] 68336- 6397 August, Cramp of both lower extremities R25.2 [facility] [id number] [place] [address] 31685- 0151 August, Back pain M54.9 [facility] [id number] [place] [address] 35459- 9458 August, [facility] [address], [place] [address]- 2896 August, [facility] [id number] [place] [address] 84402 -9717 August, Cramp of both lower extremities R25.2 [facility] [id number] [place] [address] 02427- 2782 August, [facility] [id number] [place] [address] 73721- 3654 August, Syncope R55 ; Paroxysmal atrial fibrillation I48.0 ; Dementia without behavioral disturbance, unspecified dementia type F03.90 and Chronic pain syndrome G89.4 [facility] [id number] [place] [address] 11698- 3714 August, Type 2 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 and Syncope R55 [facility] [id number] [place] [address] 75840- 3188 Jul, [facility] [id number] [place] [address] 42890- 2239 Jul, [facility] [id number] [place] [address] 81809- 2800 Jul, [facility] [id number] [place] [address] 27261- 2141 Jul, [facility] [id number] [place] [address] 60822- 3020 Jul, [facility] [id number] [place] [address] 24585- 0861 Jul, UTI (urinary tract infection) N39.0 [facility] [id number] [place] [address] 27877- 2556 Jul, [facility] [id number] [place] [address] 69104- 8785 Jul, Major depressive disorder, recurrent episode, moderate F33.1 and Generalized anxiety disorder F41.1 [facility] [address], [place] [address]- 1604 14 Jul, 2015 Generalized anxiety disorder F41.1 [facility] [address], [place] [address]- 9166 14 Jul, 2015 Diarrhea R19.7 [facility] [address], [place] [address] 2546 14 Jul, 2015 [facility] [id number] [place] [address] 95777- 5834 Jun, [facility] [id number] [place] [address] 66276- 1337 Jun, Eczema L30.9 [facility] [address], [place] [address]- 5286 Jun, [facility] [id number] [place] [address] 79884- 8141 Jun, COPD (chronic obstructive pulmonary disease) J44.9 [facility] [address], [place] [address]- 3076 Jun, [facility] [address], [place] [address]- 7654 Jun, Major depressive disorder, recurrent episode, moderate F33.1 and Generalized anxiety disorder F41.1 [facility] [address], [place] [address]- 0523 May, [facility] [address], [place] [address]- 2545 May, UTI (urinary tract infection) N39.0 [facility] [address], [place] [address]- 0766 17 May, 2015 [facility] [address], [place] [address]- 7389 08 May, 2015 [facility] [address], [place] [address]- 0155 May, [facility] [address], [place] [address]- 6382 May, [facility] [address] 6134 Apr, Major depressive disorder, recurrent episode, moderate F33.1 and Generalized anxiety disorder F41.1 [facility] [id number] [place] [address] 27033- 9156 Apr, COPD (chronic obstructive pulmonary disease) J44.9 [facility] [id number] [place] [address] 09632- 7267 Apr, [facility] [id number] [place] [address] 73650- 4705 Apr, Atrial flutter I48.92 [facility] [id number] [place] [address] 79506- 0983 Apr, [facility] [id number] [place] [address] 33714- 3113 Apr, [facility] [id number] [place] [address] 26765- 4372 Mar, [facility] [address], [place] [address]- 6443 Mar, [facility] [address], [place] [address]- 5997 Mar, [facility] [address], [place] [address]- 2483 Mar, Hyperlipidemia E78.5 ; Type 2 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 ; Major depressive disorder, recurrent episode, moderate F33.1 and Chronic pain syndrome G89.4 [facility] [address], [place] [address]- 8686 Mar, [facility] [address], [place] [address]- 0157 Mar, [facility] [address], [place] [address]- 5235 Mar, [facility] [id number] [place] [address] 16943- 7554 Mar, [facility] [id number] [place] [address] 28122- 3659 Feb, COPD (chronic obstructive pulmonary disease) J44.9 and Back pain M54.9 [facility] [address] [facility] [id number] [place] [address] 26176- 8381 Feb, [facility] [id number] [place] [address] 44699- 2741 Feb, [facility] [id number] [place] [address] 59172- 6358 Feb, [facility] [id number] [place] [address] 73531- 1465 Feb, [facility] [id number] [place] [address] 00096- 7728 Feb, [facility] [id number] [place] [address] 75072- 7278 Feb, [facility] [id number] [place] [address] 22582- 0684 Feb, [facility] [id number] [place] [address] 88723- 5274 Feb, [facility] [id number] [place] [address] 67210- 6709 Feb, Diabetes E11.9 ; Back pain M54.9 and COPD (chronic obstructive pulmonary disease) J44.9 [facility] [id number] [address]- 0704 Jan, [facility] [address], [place] [address]- 9042 Jan, Major depression, recurrent F33.9 and Generalized anxiety disorder F41.1 [facility] [id number] [place] [address] 18423- 5615 Jan, Chronic pain G89.29 [facility] [id number] [place] [address] 91290- 5577 Jan, [facility] [id number] [place] [address] 72015- 7757 Jan, [facility] [id number] [place] [address] 95753- 9028 Jan, [facility] [id number] [place] [address] 50513- 5839 Jan, [facility] [id number] [place] [address] 47519- 7589 Jan, Nicotine dependence F17.200 [facility] [id number] [place] [address] 62429- 6741 Jan, Nicotine dependence F17.200 and Back pain M54.9 [facility] [id number] [place] [address] 42551- 7966 Jan, [facility] [id number] [place] [address] 46434- 5474 28 Dec, 2014 [facility] [id number] [place] [address] 91791- 7469 25 Dec, 2014 Anxiety, generalized 300.02 and Major depression, recurrent 296.30 [facility] [id number] [place] [address] 11681- 5977 24 Dec, 2014 [facility] [id number] [place] [address] 91330- 5222 21 Dec, 2014 [facility] [id number] [place] [address] 77783- 5824 17 Dec, 2014 [facility] [id number] [place] [address] 33197- 0491 15 Dec2014 [facility] [address], [place] [address]- 2542 14 Dec, 2014 [facility] [id number] [place] [address] 37630 2549 11 Dec, 2014 [facility] [address], [place] [address] 2547 10 Dec, 2014 [facility] [id number] [place] [address] 26272 2549 08 Dec, 2014 Skin tear 879.8 [facility] [id number] [place] [address] 64564 2543 08 Dec, 2014 Routine gynecological examination V72.31 ; Breast cancer screening V76.10 and Family history of breast cancer in first degree relative V16.3 [facility] [id number] [place] [address] 71204- 8845 Dec, [facility] [id number] [place] [address] 98441- 3181 Dec, [facility] [id number] [place] [address] 54815- 3243 Nov, [facility] [id number] [place] [address] 58684- 8836 Nov, [facility] [address], [place] [address]- 8670 Nov, Poor balance 781.99 and Vascular dementia, uncomplicated 290.40 [facility] [address], [place] [address]- 9468 Nov, [facility] [id number] [place] [address] 63630- 5572 Nov, Major depression, recurrent 296.30 and Anxiety, generalized 300.02 [facility] [id number] [place] [address] 10903- 2548 Nov, [facility] [id number] [place] [address] 53827- 9627 Nov, [facility] [address], [place] [address]- 3598 Nov, [facility] [id number] [place] [address] 30683- 3535 Nov, [facility] [id number] [address]- 3586 Nov, Vascular dementia, uncomplicated 290.40 and Lumbago 724.2 [facility] [id number] [place] [address] 35252- 6308 Nov, [facility] [id number] [place] [address] 32454- 4143 Nov, [facility] [id number] [place] [address] 20638- 6657 Nov, [facility] [id number] [place] [address] 79745- 0822 Oct, [facility] [address], [place] [address]- 7860 Oct, [facility] [id number] [place] [address] 82653- 1652 Oct, [facility] [address] [address]- 7490 Oct, COPD (chronic obstructive pulmonary disease) 496 and Hyperlipidemia 272.4 [facility] [address], [place] [address]- 2878 Oct, Major depression, recurrent 296.30 and Anxiety, generalized 300.02 [facility] [address], [place] [address]- 1803 Oct, [facility] [address], [place] [address]- 3557 Oct, [facility] [address], [place] [address]- 4375 Oct, [facility] [address], [place] [address]- 0265 Sep, Lumbago 724.2 and Anxiety state, unspecified 300.00 [facility] [address] [address]- 2929 Sep, [facility] [address] [address]- 6482 Sep, [facility] [id number] [place] [address] 25872- 8476 August, [facility] [id number] [place] [address] 346350- 8909 August, Major depression, recurrent 296.30 ; Anxiety, generalized 300.02 and No condition on [place] V71.09 [facility] [address] [address]- 0147 August, [facility] [address] [address]- 2189 August, [facility] [id number] [address]- 2545 Jul, [facility] [address] [address]- 0361 Jul, [facility] [address], [place] [address]- 1354 Jul, [facility] [address], [place] [address]- 0165 Jun, [facility] [address], [place] [address]- 9440 Jun, [facility] [address] [address]- 0753 Jun, [facility] [address], [place] [address]- 2419 Jun, [facility] [id number] [place] [address]- 1519 26 Jun, 2014 [facility] [place] [facility] [address] [id number] [place] [address]- 7331 23 Jun, 2014 [facility] [place] [facility] [address] [id number] [place] [address]- 0726 23 Jun, 2014 [facility] [place] [facility] [address] [id number] [place] [address]- 3406 17 Jun, 2014 [facility] [place] [facility] [address] [id number] [place] [address]- 3016 13 Jun, 2014 [facility] [place] [facility] [address] [id number] [place] [address]- 5757 13 Jun, 2014 [facility] [place] [facility] [address] [id number] [place] [address]- 6071 10 Jun, 2014 [facility] [place] [facility] [address] [id number] [place] [address]- 5484 10 Jun, 2014 [facility] [place] [facility] [address] [id number] [place] [address]- 0220 Jun, [facility] [place] [facility] [address] [id number] [place] [address]- 7758 Jun, 2014 [facility] [place] [facility] [address] [facility] [id number] [place] [address]- 6011 Jun, [facility] [place] [facility] [address] [id number] [place] [address]- 8070 Jun, [facility] [place] [facility] [address] [id number] [place] [address]- 5496 May, 2014 [facility] [place] [facility] [address] [id number] [place] [address]- 5688 May, 2014 [facility] [place] [facility] [address] [id number] [place] [address]- 1536 May, [facility] [place] [facility] [address] [id number] [place] [address]- 4803 May, 2014 [facility] [place] [facility] [address] [id number] [place] [address]- 0343 May, 2014 [facility] [place] [facility] [address] [id number] [place] [address]- 7186 May, 2014 [facility] [place] [facility] [address] [facility] [id number] [place] [address]- 4583 May, 2014 [facility] [place] [facility] [address] [id number] [place] [address]- 7604 May, 2014 [facility] [place] [facility] [address] [id number] [place] [address]- 8867 May, 2014 [facility] [place] [facility] [address] [id number] [place] [address]- 4730 May, 2014 [facility] [place] [facility] [address] [facility] [id number] [place] [address]- 9967 May, 2014 [facility] [place] [facility] [address] [id number] [place] [address]- 2497 May, 2014 [facility] [place] [facility] [address] [id number] [place] [address]- 4704 May, [facility] [place] [facility] [address] [facility] [id number] [place] [address]- 6200 May, [facility] [place] [facility] [address] [facility] [id number] [place] [address]- 9572 Apr, [facility] [place] [facility] [address] [facility] [id number] [place] [address]- 7524 Apr, [facility] [place] [facility] [address] [id number] [place] [address]- 2987 Apr, [facility] [place] [facility] [address] [id number] [place] [address]- 7951 Apr, [facility] [place] [facility] [address] [facility] [id number] [place] [address]- 8763 Apr, [facility] [place] [facility] [address] [id number] [place] [address]- 2804 Apr, [facility] [address] [id number] [place] [address]- 5351 Apr, [facility] [place] [facility] [address] [id number] [place] [address]- 2296 Apr, [facility] [place] [facility] [address] [id number] [place] [address]- 7656 Apr, [facility] [place] [facility] [address] [id number] [place] [address]- 1973 Apr, [facility] [place] [facility] [address] [id number] [place] [address]- 1481 Apr, [facility] [place] [facility] [address] [id number] [place] [address]- 1381 Apr, [facility] [place] [facility] [address] [id number] [place] [address]- 6005 Mar, [facility] [address] [id number] [place] [address]- 4664 31 Mar, 2014 [facility] [place] [facility] [address] [id number] [place] [address] Mar, [facility] [place] [facility] [address] [id number] [place] [address] 30 Mar, 2014 [facility] [place] [facility] [address] [id number] [place] [address] 29 Mar, 2014 [facility] [place] [facility] [address] [id number] [place] [address] 29 Mar, 2014 [facility] [place] [facility] [address] [id number] [place] [address] Mar, [facility] [place] [facility] [address] [id number] [place] [address] Mar, [facility] [place] [facility] [address] [id number] [place] [address] 15 Mar, 2014 [facility] [place] [facility] [address] [id number] [place] [address] 15 Mar, 2014 [facility] [place] [facility] [address] [id number] [place] [address] Mar, [facility] [place] [facility] [address] [id number] [place] [address] 15 Mar, 2014 [facility] [place] [facility] [address] [id number] [place] [address] Mar, [facility] [place] [facility] [address] [id number] [place] [address]- [address] Mar, [facility] [place] [facility] [address] [id number] [place] [address]- [address] Mar, [facility] [place] [facility] [address] [id number] [place] [address] Mar, [facility] [place] [facility] [address] [id number] [place] [address]- [address] Mar, [facility] [place] [facility] [address] [id number] [place] [address]- [address] Mar, [facility] [place] [facility] [address] [id number] [place] [address]- [address] Mar, [facility] [place] [facility] [address] [id number] [place] [address] Mar, [facility] [place] [facility] [address] [id number], [place] [address] Feb, [facility] [place] [facility] [address] [id number] [place] [address]- [address] Feb, [facility] [place] [facility] [address] [id number] [place] [address] Feb, [facility] [place] [facility] [address] [id number] [place] [address]- [address] Feb, [facility] [place] [facility] [address] [id number] [place] [address]- [address] Feb, [facility] [place] [facility] [address] [id number] [place] [address] Feb, [facility] [place] [facility] [address] [id number] [place] [address] Feb, [facility] [place] [facility] [address] [id number] [place] [address] Feb, [facility] [place] [facility] [address] [id number] [place] [address]- [address] Feb, [facility] [place] [facility] [address] [id number] [place] [address] Feb, [facility] [place] [facility] [address] [id number] [place] [address] Feb, [facility] [place] [facility] [address] [id number] [place] [address] Feb, [facility] [place] [facility] [address] [id number] [place] [address] Feb, [facility] [place] [facility] [address] [id number] [place] [address] Feb, [facility] [place] [facility] [address] [facility] [id number] [place] [address] Feb, [facility] [place] [facility] [address] [id number] [place] [address]- 9532 Feb, [facility] [place] [facility] [address] [id number], [place] [address] Feb, [facility] [place] [facility] [address] [id number] [place] [address]- 9858 Jan, [facility] [place] [facility] [address] [id number] [place] [address]- 9316 Jan, [facility] [place] [facility] [address] [id number], [place] [address]- [address] Jan, [facility] [place] [facility] [address] [id number] [place] [address]- 7212 Jan, [facility] [place] [facility] [address] [id number] [place] [address]- 0129 Jan, [facility] [place] [facility] [address] [id number] [place] [address]- 8007 Jan, [facility] [place] [facility] [address] [id number] [place] [address]- 7836 Jan, [facility] [place] [facility] [address] [id number] [place] [address]- 3218 Jan, [facility] [place] [facility] [address] [id number] [place] [address]- 5026 Jan, [facility] [place] [facility] [address] [id number] [place] [address]- 2944 Jan, [facility] [place] [facility] [address] [id number] [place] [address]- 5471 Jan, [facility] [place] [facility] [address] [id number] [place] [address]- 8069 Dec, [facility] [place] [facility] [address] [id number] [place] [address]- 3547 Dec, [facility] [place] [facility] [address] [id number] [place] [address]- 1584 Nov, [facility] [place] [facility] [address] [id number] [place] [address]- 4415 Nov, [facility] [place] [facility] [address] [id number] [place] [address]- 5277 Nov, [facility] [place] [facility] [address] [id number] [place] [address]- 3788 Nov, [facility] [place] [facility] [address] [id number] [place] [address]- 9065 Nov, [facility] [place] [facility] [address] [id number] [place] [address]- 6516 Nov, [facility] [place] [facility] [address] [id number] [place] [address] Nov, [facility] [place] [facility] [address] [id number] [place] [address]- 5271 Oct, [facility] [place] [facility] [address] [id number] [place] [address]- 9207 Oct, [facility] [place] [facility] [address] [id number] [place] [address]- 0063 Oct, [facility] [place] [facility] [address] [id number] [place] [address]- 8049 Oct, [facility] [place] [facility] [address] [id number] [place] [address]- 2154 Sep, [facility] [place] [facility] [address] [id number] [place] [address]- 7753 Sep, [facility] [place] [facility] [address] [id number] [place] [address]- 3327 Sep, [facility] [place] [facility] [address] [id number] [place] [address]- 0143 Sep, [facility] [place] [facility] [address] [id number] [place] [address]- 8064 Sep, [facility] [place] [facility] [address] [id number] [place] [address]- 9875 Sep, [facility] [place] [facility] [address] [id number] [place] [address]- 3119 Sep, [facility] [place] [facility] [address] [id number] [place] [address]- 4743 Sep, [facility] [place] [facility] [address] [id number] [place] [address]- 1146 Sep, [facility] [place] [facility] [address] [id number] [place] [address]- 7520 Sep, [facility] [place] [facility] [address] [id number] [place] [address]- 9857 Sep, [facility] [address] [id number] [place] [address]- 7161 Sep, [facility] [address] [id number] [place] [address]- 5836 Sep, [facility] [address] [id number] [place] [address]- 3120 Sep, [facility] [address] [id number] [place] [address]- 7701 August, [facility] [address] [id number] [place] [address]- 6053 August, [facility] [address] [id number] [place] [address]- 2897 August, [facility] [address] [id number] [place] [address]- 0846 August, [facility] [address] [id number] [place] [address]- 3846 August, [facility] [address] [id number] [place] [address]- 0568 August, [facility] [address] [id number] [place] [address]- 6869 August, [facility] [address] [id number] [place] [address]- 5118 August, [facility] [address] [id number] [place] [address]- 8341 August, [facility] [place] [facility] [address] [id number] [place] [address]- 0525 August, [facility] [place] [facility] [address] [id number] [place] [address]- 7994 August, [facility] [address] [id number] [place] [address]- 1765 August, [facility] [address] [id number] [place] [address]- 0143 August, [facility] [place] [facility] [address] [id number] [place] [address]- 7974 August, [facility] [place] [facility] [address] [id number] [place] [address]- 9080 August, [facility] [place] [facility] [address] [id number] [place] [address]- 8258 August, [facility] [place] [facility] [address] [id number] [place] [address]- 0779 August, [facility] [place] [facility] [address] [id number] [place] [address]- 7939 August, [facility] [place] [facility] [address] [id number] [place] [address]- 4867 August, [facility] [place] [facility] [address] [id number] [place] [address]- 6627 Jul, [facility] [place] [facility] [address] [id number] [place] [address]- 9509 Jul, [facility] [place] [facility] [address] [id number] [place] [address]- 0766 Jul, [facility] [place] [facility] [address] [id number] [place] [address]- 8481 Jul, [facility] [place] [facility] [address] [id number] [place] [address]- 3191 Jun, [facility] [place] [facility] [address] [id number] [place] [address]- 1051 Jun, [facility] [place] [facility] [address] [id number] [place] [address]- 1638 Jun, [facility] [place] [facility] [address] [id number] [place] [address]- 3054 Jun, [facility] [place] [facility] [address] [id number] [place] [address]- 7587 17 Jun, 2013 [facility] [place] [facility] [address] [id number] [place] [address]- 7957 17 Jun, 2013 [facility] [place] [facility] [address] [id number] [place] [address]- 8901 14 Jun, 2013 [facility] [place] [facility] [address] [facility] [id number] [place] [address]- 5350 14 Jun, 2013 [facility] [place] [facility] [address] [id number] [place] [address]- 7360 Jun, [facility] [place] [facility] [address] [id number] [place] [address]- 5423 Jun, [facility] [place] [facility] [address] [facility] [id number] [place] [address]- 1430 May, [facility] [place] [facility] [address] [facility] [id number] [place] [address]- 9510 May, [facility] [place] [facility] [address] [facility] [id number] [place] [address]- 8043 May, [facility] [place] [facility] [address] [facility] [id number] [place] [address]- 2002 27 May, 2013 [facility] [place] [facility] [address] [facility] [id number] [place] [address]- 0693 May, [facility] [place] [facility] [address] [facility] [id number] [place] [address]- 6565 May, [facility] [place] [facility] [address] [facility] [id number] [place] [address]- 5692 20 May, 2013 [facility] [place] [facility] [address] [facility] [id number] [place] [address]- 0532 May, [facility] [place] [facility] [address] [facility] [id number] [place] [address]- 3332 May, [facility] [place] [facility] [address] [facility] [id number] [place] [address]- 7345 18 May, 2013 [facility] [place] [facility] [address] [id number] [place] [address]- 2537 18 May, 2013 [facility] [place] [facility] [address] [id number] [place] [address]- 0306 May, [facility] [place] [facility] [address] [id number] [place] [address]- 2746 May, [facility] [place] [facility] [address] [id number] [place] [address]- 4093 May, [facility] [place] [facility] [address] [id number] [place] [address]- 6400 May, [facility] [place] [facility] [address] [id number] [place] [address]- 5084 May, [facility] [place] [facility] [address] [id number] [place] [address]- 4344 May, [facility] [place] [facility] [address] [id number] [place] [address]- 6960 Apr, [facility] [place] [facility] [address] [id number] [place] [address]- 7549 Apr, [facility] [place] [facility] [address] [id number] [place] [address]- 2181 Apr, [facility] [place] [facility] [address] [facility] [id number] [place] [address]- 3348 Apr, [facility] [place] [facility] [address] [id number], [place] [address]- 7645 Apr, [facility] [place] [facility] [address] [id number] [place] [address]- 8204 Apr, [facility] [place] [facility] [address] [facility] [id number] [place] [address]- 1624 Apr, [facility] [place] [facility] [address] [facility] [id number] [place] [address]- 8941 Mar, [facility] [place] [facility] [address] [id number] [place] [address]- 3831 Mar, [facility] [address] [id number] [place] [address]- 0802 Mar, [facility] [address] [id number] [place] [address]- 2676 Mar, [facility] [address] [id number] [place] [address]- 9639 Mar, [facility] [address] [id number] [place] [address]- 6892 Mar, [facility] [address] [id number] [place] [address]- 1989 Mar, [facility] [address] [id number] [place] [address]609 Mar, [facility] [address] [id number] [place] [address]- 5216 Mar, [facility] [address] [id number] [place] [address]- 4769 Mar, [facility] [address] [id number] [place] [address]- 8289 Mar, [facility] [address] [facility] [id number] [place] [address]- 2015 Feb, [facility] [address] [id number] [place] [address]- 4103 Feb, [facility] [address] [id number] [place] [address]- 2967 Feb, [facility] [address] [id number] [place] [address]- 3530 Feb, [facility] [address] [id number] [place] [address]- 0769 Feb, [facility] [address] [id number] [place] [address]- 8408 Feb, [facility] [place] [facility] [address] [id number] [place] [address]- 8065 15 Feb, 2013 [facility] [place] [facility] [address] [id number] [place] [address]- 6170 14 Feb, 2013 [facility] [place] [facility] [address] [id number] [place] [address]- 7366 14 Feb, 2013 [facility] [place] [facility] [address] [id number] [place] [address]- 7814 Feb, [facility] [place] [facility] [address] [id number] [place] [address]- 1502 Feb, [facility] [place] [facility] [address] [id number] [place] [address]- 3643 Feb, [facility] [place] [facility] [address] [id number] [place] [address]- 7710 Feb, [facility] [place] [facility] [address] [id number], [place] [address]- 0019 Feb, [facility] [place] [facility] [address] [id number] [place] [address]- 6563 Feb, [facility] [place] [facility] [address] [id number], [place] [address]- 8803 Feb, [facility] [place] [facility] [address] [id number], [place] [address]- 8399 Jan, [facility] [place] [facility] [address] [id number], [place] [address]- 3838 Jan, [facility] [place] [facility] [address] [id number], [place] [address]- 0014 Jan, [facility] [place] [facility] [address] [id number], [place] [address]- 1960 Jan, [facility] [place] [facility] [address] [id number], [place] [address]- 6869 Jan, [facility] [place] [facility] [address] [id number], [place] [address]- 9273 Jan, [facility] [place] [facility] [address] [id number] [place] [address]- 0623 Jan, [facility] [place] [facility] [address] [id number] [place] [address]- 6127 Jan, [facility] [place] [facility] [address] [id number] [place] [address]- 9363 Jan, [facility] [place] [facility] [address] [id number] [place] [address]- 1582 27 Dec, 2012 [facility] [place] [facility] [address] [id number] [place] [address]- 3548 20 Dec, 2012 [facility] [place] [facility] [address] [id number] [place] [address]- 4908 Dec, [facility] [place] [facility] [address] [id number] [place] [address]- 3705 Dec, [facility] [place] [facility] [address] [id number] [place] [address]- 4900 Dec, [facility] [place] [facility] [address] [id number] [place] [address]- 8574 Dec, [facility] [place] [facility] [address] [id number] [place] [address]- 3345 Nov, [facility] [place] [facility] [address] [id number] [place] [address]- 5791 Nov, [facility] [place] [facility] [address] [id number] [place] [address]- 2541 Nov, [facility] [place] [facility] [address] [id number] [place] [address]- 4901 Nov, [facility] [place] [facility] [address] [id number] [place] [address]- 3868 Nov, [facility] [place] [facility] [address] [id number] [place] [address]- 0904 Nov, [facility] [place] [facility] [address] [id number] [place] [address]- 4673 15 Nov, 2012 [facility] [place] [facility] [address] [id number] [place] [address]- 6619 15 Nov, 2012 [facility] [place] [facility] [address] [id number] [place] [address]- 4216 Nov, [facility] [place] [facility] [address] [id number] [place] [address]- 5523 Nov, [facility] [place] [facility] [address] [id number] [place] [address]- 1902 Oct, [facility] [place] [facility] [address] [id number] [place] [address]- 7406 Oct, [facility] [place] [facility] [address] [id number] [place] [address]- 6082 Oct, [facility] [place] [facility] [address] [id number] [place] [address]- 3049 Oct, [facility] [place] [facility] [address] [id number] [place] [address]- 7022 Oct, [facility] [place] [facility] [address] [id number] [place] [address]- 0599 Oct, [facility] [place] [facility] [address] [id number] [place] [address]- 4251 Oct, [facility] [place] [facility] [address] [id number] [place] [address]- 6093 Oct, [facility] [place] [facility] [address] [id number] [place] [address]- 4456 Sep, [facility] [place] [facility] [address] [id number] [place] [address]- 2516 Sep, [facility] [place] [facility] [address] [id number] [place] [address]- 9604 Sep, [facility] [place] [facility] [address] [id number] [place] [address]- 2002 Sep, [facility] [address] [id number] [place] [address]- 3150 Sep, [facility] [place] [facility] [address] [id number] [place] [address]- 9589 Sep, [facility] [place] [facility] [address] [id number] [place] [address]- 1271 Sep, [facility] [place] [facility] [address] [id number] [place] [address]- 5646 Sep, [facility] [address] [id number] [place] [address]- 2239 August, [facility] [place] [facility] [address] [id number] [place] [address]- 7122 August, [facility] [place] [facility] [address] [id number] [place] [address]- 0185 August, [facility] [place] [facility] [address] [id number] [place] [address]- 0705 August, [facility] [place] [facility] [address] [id number] [place] [address]- 0386 August, [facility] [place] [facility] [address] [id number] [place] [address]- 4704 Jul, [facility] [place] [facility] [address] [id number] [place] [address]- 3656 Jul, [facility] [place] [facility] [address] [id number], [place] [address]- 3344 Jul, [facility] [place] [facility] [address] [id number] [place] [address]- 1580 Jul, [facility] [place] [facility] [address] [id number] [place] [address]- 0957 Jul, [facility] [place] [facility] [address] [id number] [place] [address]- 9992 Jun, [facility] [place] [facility] [address] [id number] [place] [address]- 0061 18 Jun, 2012 [facility] [address] [id number] [place] [address]- 4714 15 Jun, 2012 [facility] [place] [facility] [address] [id number] [place] [address]- 8441 14 Jun, 2012 [facility] [address] [id number] [place] [address]- 4201 12 Jun, 2012 [facility] [place] [facility] [address] [id number] [place] [address]- 5092 08 Jun, 2012 [facility] [address] [id number] [place] [address] 08 Jun, 2012 [facility] [address] [id number] [place] [address] 02 Jun, 2012 [facility] [address] [id number] [place] [address] Jun, [facility] [address] [id number] [place] [address] 27 May, 2012 [facility] [address] [id number] [place] [address] 25 May, 2012 [facility] [address] [id number] [place] [address]16 20 May, 2012 [facility] [place] [facility] [address] [id number] [place] [address] 1244 12 May, 2012 [facility] [place] [facility] [address] [id number] [place] [address] 20[address] 15 Apr, 2012 [facility] [place] [facility] [address] [id number] [place] [address] 99[address] 09 Apr, 2012 [facility] [place] [facility] [address] [id number] [place] [address] 5942 08 Apr, 2012 [facility] [place] [facility] [address] [id number] [place] [address] Apr, [facility] [address] [id number] [place] [address] Apr, [facility] [address] [id number] [place] [address] Apr, [facility] [address] [id number] [place] [address]106 Apr, [facility] [address] [id number] [place] [address] Mar, [facility] [id number] Mar, [facility] [address] [id number] [place] [address] Mar, [facility] [address] [id number] [place] [address]66 Mar, [facility] [address] [id number] [place] [address] Mar, [facility] [address] [id number] [place] [address] Mar, [facility] [address] [id number] [place] [address]646 Mar, [facility] [address] [id number] [place] [address] 47[address] Mar, [facility] [address] [id number] [place] [address] Mar, [facility] [address] [id number] [place] [address]226 Mar, [facility] [address] [id number] [place] [address]696 Mar, [facility] [address] [id number] [place] [address] 4036 Mar, [facility] [address] [id number] [place] [address] Mar, [facility] [place] [facility] [address] [id number] [place] [address]65 Mar, [facility] [place] [facility] [address] [id number] [place] [address]269 Mar, [facility] [place] [facility] [address] [id number] [place] [address] Mar, [facility] [place] [facility] [address] [id number] [place] [address] 2805 Mar, [facility] [place] [facility] [address] [id number] [place] [address] 0369 Feb, [facility] [place] [facility] [address] [id number] [place] [address] 3865 Feb, [facility] [place] [facility] [address] [id number] [place] [address] 6548 Feb, [facility] [place] [facility] [address] [id number] [place] [address] 9275 Feb, [facility] [place] [facility] [address] [id number] [place] [address] 2568 Feb, [facility] [place] [facility] [address] [id number] [place] [address] 7330 Feb, [facility] [place] [facility] [address] [id number], [place] [address] Feb, [facility] [place] [facility] [address] [id number], [place] [address] Feb, [facility] [place] [facility] [address] [id number] [place] [address] 7546 Feb, [facility] [place] [facility] [address] [id number], [place] [address]- [address] Feb, [facility] [place] [facility] [address] [id number], [place] [address] Feb, [facility] [place] [facility] [address] [id number] [place] [address]- 7725 13 Feb, 2012 [facility] [place] [facility] [address] [id number] [place] [address]- 0094 Feb, [facility] [place] [facility] [address] [id number] [place] [address]- 5947 Feb, [facility] [place] [facility] [address] [id number] [place] [address]- [address]281 Feb, [facility] [place] [facility] [address] [id number] [place] [address]- 3967 Feb, [facility] [place] [facility] [address] [id number] [place] [address] Jan, [facility] [place] [facility] [address] [id number] [place] [address]- [address]398 Jan, [facility] [place] [facility] [address] [facility] [facility] [id number] [place] [address] Jan, [facility] [place] [facility] [address] [id number] [place] [address]- 9462 Jan, [facility] [place] [facility] [address] [facility] [id number] [place] [address]- 0812 Jan, [facility] [place] [facility] [address] [facility] [id number] [place] [address]- 0736 Jan, [facility] [place] [facility] [address] [facility] [id number] [place] [address]- 7662 Jan, [facility] [place] [facility] [address] [id number], [place] [address]275 24 Jan, 2012 [facility] [place] [facility] [address] [id number] [place] [address] Jan, [facility] [place] [facility] [address] [facility] [id number] [place] [address]- [address]646 Jan, [facility] [place] [facility] [address] [facility] [id number], [place] [address]- [address] Jan, [facility] [place] [facility] [address] [id number] [place] [address]- 2325 Jan, [facility] [place] [facility] [address] [id number] [place] [address]- 4673 Jan, [facility] [place] [facility] [address] [id number] [place] [address]- 7945 Jan, [facility] [place] [facility] [address] [id number] [place] [address], [place] [address]- 4380 08 Jan, 2012 [facility] [place] [facility] [address] [id number] [place] [address]- 3387 05 Jan, 2012 [facility] [place] [facility] [address] [id number] [place] [address]- 5663 04 Jan, 2012 [facility] [place] [facility] [address] [id number] [place] [address]- 4873 21 Dec, 2011 [facility] [place] [facility] [address] [id number] [place] [address]- 9271 20 Dec, 2011 [facility] [place] [facility] [address] [id number] [place] [address]- 5160 18 Dec, 2011 [facility] [place] [facility] [address] [id number] [place] [address]- 5738 18 Dec, 2011 [facility] [place] [facility] [address] [id number] [place] [address]- 6458 10 Dec, 2011 [facility] [place] [facility] [address] [id number] [place] [address]- 1183 10 Dec, 2011 [facility] [place] [facility] [address] [id number] [place] [address]- 0579 10 Dec, 2011 [facility] [place] [facility] [address] [id number] [place] [address]- 6668 07 Dec, 2011 [facility] [place] [facility] [address] [id number] [place] [address]- 3455 30 Nov, 2011 [facility] [place] [facility] [address] [id number] [place] [address]- 2546 Nov, [facility] [place] [facility] [address] [id number] [place] [address]- 5066 Nov, [facility] [place] [facility] [address] [address] [id number] [place] [address] Nov, [facility] [place] [facility] [address] [id number] [place] [address] Nov, [facility] [place] [facility] [address] [id number] [place] [address] Nov, [facility] [place] [facility] [address] [id number] [place] [address] Oct, [facility] [place] [facility] [address] [id number] [place] [address] Oct, [facility] [place] [facility] [address] [id number] [place] [address] Oct, [facility] [place] [facility] [address] [id number] [place] [address] Oct, [facility] [place] [facility] [address] [id number] [place] [address] 1646 Oct, [facility] [place] [facility] [address] [id number] [place] [address]17 Oct, [facility] [place] [facility] [address] [id number] [place] [address] Oct, [facility] [place] [facility] [address] [id number] [place] [address] Sep, [facility] [place] [facility] [address] [id number] [place] [address] Sep, [facility] [place] [facility] [address] [id number] [place] [address] Sep, [facility] [place] [facility] [address] [id number] [place] [address] Sep, [facility] [place] [facility] [address] [id number] [place] [address] 19 Sep, 2011 [facility] [address] [id number] [place] [address] 15 Sep, 2011 [facility] [address] [id number] [place] [address] 14 Sep, 2011 [facility] [address] [id number] [place] [address] 4870 11 Sep, 2011 [facility] [address] [id number] [place] [address] 7683 05 Sep, 2011 [facility] [address] [id number] [place] [address] 04 Sep, 2011 [facility] [address] [id number] [place] [address] 2016 August, [facility] [address] [id number] [place] [address] August, [facility] [address] [id number] [place] [address] August, [facility] [address] [id number] [place] [address]7 August, [facility] [address] [id number] [place] [address] August, [facility] [address] [id number] [place] [address]164 Jul, [facility] [address] [id number] [place] [address] Jul, [facility] [place] [facility] [address] [id number] [place] [address]57 25 Jul, 2011 [facility] [place] [facility] [address] [id number] [place] [address] 17 Jul, 2011 [facility] [address] [id number] [place] [address] Jul, [facility] [address] [id number] [place] [address] 6143 Jul, [facility] [place] [facility] [address] [id number] [place] [address] 4196 Jul, [facility] [place] [facility] [address] [id number] [place] [address] 5381 Jun, [facility] [place] [facility] [address] [id number] [place] [address] 4039 Jun, [facility] [place] [facility] [address] [id number] [place] [address] 6[address] Jun, [facility] [place] [facility] [address] [id number] [place] [address]- 1026 Jun, [facility] [place] [facility] [address] [id number] [place] [address] Jun, [facility] [place] [facility] [address] [id number] [place] [address] 2446 May, [facility] [place] [facility] [address] [id number] [place] [address] 1555 May, [facility] [place] [facility] [address] [id number] [place] [address]- 7428 May, [facility] [place] [facility] [address] [id number] [place] [address] 0878 May, [facility] [place] [facility] [address] [id number] [place] [address]- 0070 May, [facility] [place] [facility] [address] [id number] [place] [address]- 5347 May, [facility] [place] [facility] [address] [id number] [place] [address]- 0426 Apr, [facility] [place] [facility] [address] [id number] [place] [address] 6556 Mar, [facility] [place] [facility] [address] [id number] [place] [address]- 6329 11 Feb, 2011 [facility] [address] [id number] [place] [address] 4528 Feb, [facility] [place] [facility] [address] [id number] [place] [address] Feb, [facility] [address] [id number] [place] [address]- 6572 Feb, [facility] [place] [facility] [address] [id number] [place] [address]- 6456 31 Jan, 2011 [facility] [address] [id number] [place] [address], [place] [address]- 3863 27 Jan, 2011 [facility] [place] [facility] [address] [id number] [place] [address]- 4648 Jan, [facility] [address] [id number] [place] [address]- 6971 24 Jan, 2011 [facility] [address] [id number] [place] [address]- 1647 14 Jan, 2011 [facility] [place] [facility] [address] [id number] [place] [address]- 1010 Dec, [facility] [address] [id number] [place] [address]- 2948 Oct, [facility] [place] [facility] [address] [id number] [place] [address] 7313 August, [facility] [address] [id number] [place] [address]- 6842 Mar, [facility] [place] [facility] [address] [id number] [place] [address] 27 Mar, 2010 [facility] [place] [facility] [address] [id number] [place] [address]- 2542 16 Mar, 2010 [facility] [place] [facility] [address] [id number] [place] [address]- 6024 15 Mar, 2010 [facility] [place] [facility] [address] [id number] [place] [address]- 5879 15 Mar, 2010 [facility] [place] [facility] [address] [id number] [place] [address]- 8446 08 Mar, 2010 [facility] [place] [facility] [address] [id number] [place] [address]- 8454 Mar, [facility] [place] [facility] [address] [id number] [place] [address]- 7961 Feb, [facility] [place] [facility] [address] [id number] [place] [address]- 6944 Feb, [facility] [place] [facility] [address] [id number] [place] [address]- 1432 Feb, [facility] [place] [facility] [address] [id number] [place] [address]- 7315 Jan, [facility] [place] [facility] [address] [id number] [place] [address]- 9029 Jan, [facility] [place] [facility] [address] [id number] [place] [address]- 5749 Jan, [facility] [place] [facility] [address] [id number] [place] [address]- 6841 Nov, [facility] [place] [facility] [address] [id number] [place] [address]- 5412 Sep, [facility] [place] [facility] [address] [id number], [place] [address]- 4664 August, [facility] [place] [facility] [address] [id number] [place] [address]- 1631 Mar, [facility] [place] [facility] [address] [id number] [place] [address]- 8106 Mar, [facility] [place] [facility] [address] [id number], [place] [address] 9336 Feb, [facility] [place] [facility] [address] [id number], [place] [address]- 86[address] Feb, [facility] [id number] [place] [address] Feb, [facility] [id number], [place] [address] 2709 Feb, [facility] [id number], [place] [address]- 7535 Feb, [facility] [id number], [place] [address]- [address]247 Jan, [facility] [id number], [place] [address]- 1308 Jan, [facility] [id number], [place] [address]- 3861 Jan, [facility] [id number], [place] [address]- 0052 Jan, [facility] [id number], [place] [address]- 6923 Nov, [facility] [id number], [place] [address]- 3057 Sep, [facility] [id number], [place] [address]- 8099 August, [facility] [id number], [place] [address]- 0705 Jul, [facility] [id number], [place] [address]- 8146 May, IMMUNIZATIONS No Known Immunizations SOCIAL HISTORY [...] Knee Surgery 07/16/17 Hospitalization History [facility] [place]- left hand/wrist swelling 10/09/2017
--- OUTSIDE RECORDS SUMMARY | 2018-01-01 11:31 | XMS REPORT ---
Author Author PATRICK GALAVIZ Organization [facility] Address [address] [place] [address] Care Team Providers Care Bmet Name Role Phone PATRICK GALAVIZ Unavailable PROBLEMS Type Condition ICD9-CM Code WUR15-UG Code Onset Dates Condition Status SNOMED Code Problem 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 Active 44805524 Problem Colon polyp K63.5 Active 58710838 Problem Screening breast examination Z12.39 Active 405517463 Problem Bilateral low back pain without sciatica M54.5 Active 627388785 Problem Postmenopausal Z78.0 Active 84691696 Problem Essential tremor G25.0 Active 47430849 Problem Osteopenia M85.80 Active 594805040 Problem Hyperlipidemia E78.5 Active 49539290 Problem Cigarette nicotine dependence without complication F17.210 Active 50302341 Problem Vascular dementia without behavioral disturbance F01.50 Active [id number] Problem Arthritis M19.90 Active 4815979 Problem Chronic atrial fibrillation I48.2 Active 128362283 Problem Dementia without behavioral disturbance, unspecified dementia type F03.90 Active 83643819 Problem Other chronic pancreatitis K86.1 Active 975806651 Problem Xeroderma Q80.9 Active 37735624 Problem Chronic obstructive pulmonary disease with acute lower respiratory infection J44.0 Active 265974816 Problem Type 2 diabetes mellitus with diabetic neuropathy, without long-term current use of insulin E11.40 Active 87981850 Problem Atherosclerosis of saxman artery of both lower extremities with intermittent claudication I70.213 Active 611906318236993 Problem Hammertoe of right foot M20.41 Active 243318302 Problem Hammertoe of left foot M20.42 Active 392282588 Problem Migraine without aura and with status migrainosus, not intractable G43.001 Active 811608829 Problem Migraine without aura and without status migrainosus, not intractable G43.009 Active 678620136 Problem Major depressive disorder, recurrent episode, moderate F33.1 Active 388972843 Problem Unspecified psychosis F29 Active 88582776 Problem Cervicalgia M54.2 Active 2031401094958 Problem Diabetic polyneuropathy associated with type 2 diabetes mellitus E11.42 Active 95313020 Problem COPD (chronic obstructive pulmonary disease) J44.9 Active 33102673 Problem 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 Active 1616508616931 Problem Gastroparesis K31.84 Active 209443567 Problem Stress incontinence of urine N39.3 Active 66603834 Problem Osteoporosis M81.0 Active 09694065 Problem Controlled type 2 diabetes mellitus without complication, without long -term current use of insulin E11.9 Active 838567981 Problem Barretts esophagus K22.70 Active 470452215 Problem Chronic fatigue R53.82 Active 96982427 Problem History of common bile duct surgery Z98.89 Active 924564921 Problem Bipolar affective disorder, currently depressed, moderate F31.32 Active 174195871 Problem Generalized anxiety disorder F41.1 Active 145145999 Problem Gastroesophageal reflux disease, esophagitis presence not specified K21.9 Active 727134315 Problem Coronary artery disease involving saxman coronary artery of saxman 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 I25.118 Active 5715246540307 Problem Postconcussion syndrome F07.81 Active 77876626 Problem Chronic pain syndrome G89.4 Active 937914224 Problem Type 2 diabetes mellitus with diabetic peripheral angiopathy without gangrene E11.51 Active 555560589 Problem Paroxysmal atrial fibrillation I48.0 Active 557457415 Problem Unspecified atherosclerosis of saxman arteries of extremities, unspecified extremity I70.209 Active 590906840674489 Problem Acute exacerbation of chronic obstructive pulmonary disease (COPD) J44.1 Active 081726851 Problem Crohn''s disease without complication, unspecified gastrointestinal tract location K50.90 Active 41203359 ALLERGIES No Information ENCOUNTERS Encounter Location Date Diagnosis [facility] [address] [facility] [id number] [address] Feb, [facility] [address] [facility] [id number] [address] [address] Nov, Onychomycosis B35.1 ; Hammertoe of left foot M20.42 ; Hammertoe of right foot M20.41 and Type 2 diabetes mellitus with diabetic neuropathy, without long-term current use of insulin E11.40 [place] [address] [place] [address] 00422- 8003 Nov, [place] [address] [place] [id number] [place] [address] 53473- 7557 Nov, Bronchitis J40 [place] [address] [place] [id number] [place] [address] 90826- 5094 Oct, [place] [address] [place] [id number] [place] [address] 56982- 7675 Oct, Bipolar affective disorder, currently depressed, moderate F31.32 ; Vascular dementia without behavioral disturbance F01.50 and Generalized anxiety disorder F41.1 [place] [address] [place] [id number] [place] [address] 44336- 5842 Oct, [place] [address] [place] [id number] [place] [address] 89783- 7129 Oct, [place] [address] [place] [id number] [place] [address] 88065- 0714 Oct, Edema of both legs R60.0 [place] [address] [place] [id number] [place] [address] 38534- 8314 Oct, [place] [address] [place] [address] 16698- 6055 Sep, [place] [id number] [place] [address] 07254- 8810 Sep, [place] [id number] [place] [address] 33487- 4432 Sep, [place] [address] [place] [id number] [place] [address] 10624- 2000 18 Sep, 2017 Encounter for well woman exam with routine gynecological exam Z01.419 ; Screening for STDs (sexually transmitted diseases) Z11.3 ; Screening breast examination Z12.31 and Overweight (BMI 25.0-29.9) E66.3 [place] [address] [place] [id number] [address] [address] Sep, [facility] [address] [place] [address] 91746- 5485 Sep, [facility] [address] [place] [id number] [place] [address] 836994- 9987 Sep, [facility] [address] [place] [id number] [place] [address] 616642- 2666 August, [facility] [address] [place] [id number] [place] [address] 38419- 9623 August, [facility] [address] [place] [id number] [place] [address] 152453- 7208 August, Type 2 diabetes mellitus with diabetic neuropathy, without long-term current use of insulin E11.40 and Sprain of right ankle, unspecified ligament, initial encounter S93.401A [facility] [address] [place] [id number] [place] [address] 45684- 8575 August, [facility] [address] [place] [address] 64341- 5117 August, [facility] [address] [place] [id number] [place] [address] 97294- 3206 August, [facility] [address] [address] 0633 August, Gastroesophageal reflux disease, esophagitis presence not specified K21.9 [facility] [address] [address] 5058 August, [facility] [address] [address] 3846 August, [facility] [address] [address] August, [facility] [address] [address] 7920 August, Type 2 diabetes mellitus with diabetic neuropathy, without long-term current use of insulin E11.40 and Elevated liver enzymes R74.8 [facility] [address] [place] [id number] [place] [address] 48282- 3552 Jul, [facility] [address] [place] [id number] [place] [address] 73572- 9397 Jul, Cough R05 [facility] [address] [place] [id number] [place] [address] 98469- 3002 Jul, [place] [address] [place] [id number] [place] [address] 89821- 3125 Jul, [place] [address] [place] [id number] [place] [address] 02672- 3026 Jul, Bipolar affective disorder, currently depressed, moderate F31.32 ; Vascular dementia without behavioral disturbance F01.50 and Generalized anxiety disorder F41.1 [place] [address] [place] [id number] [place] [address] 23212- 1455 Jul, [place] [address] [place] [id number] [place] [address] 70422- 0707 Jul, Type 2 diabetes mellitus with diabetic neuropathy, without long-term current use of insulin E11.40 and Elevated liver enzymes R74.8 [place] [address] [place] [id number] [place] [address] 89617- 6051 Jul, [place] [address] [place] [id number] [place] [address] 29390- 5508 Jul, [place] [address] [place] [id number] [place] [address] 03000- 4212 Jul, [place] [address] [place] [id number] [place] [address] 86545- 7433 Jul, Post-menopausal Z78.0 [place] [address] [place] [id number] [place] [address] 45702- 4673 Jul, Stress incontinence of urine N39.3 [place] [address] [place] [id number] [place] [address] 13307- 5335 Jul, [facility] [address] [place] [id number] [place] [address] 23079- 1062 Jul, [facility] [address] [place] [id number] [place] [address] 75060- 5368 Jul, Stress incontinence of urine N39.3 and Cough R05 [facility] [address] [place] [id number] [place] [address] 86590- 0849 Jul, [facility] [address] [place] [id number] [place] [address] 73947- 7751 Jul, [facility] [address] [place] [id number] [place] [address] 68613- 1663 Jul, [facility] [address] [place] [id number] [place] [address] 07407- 4074 Jul, Gastroesophageal reflux disease, esophagitis presence not specified K21.9 [facility] [address] [place] [id number] [place] [address] 73294- 5937 Jun, Diabetic polyneuropathy associated with type 2 diabetes mellitus E11.42 [place] [address] [place] [id number] [place] [address] 25493- 2326 Jun, Diabetic polyneuropathy associated with type 2 diabetes mellitus E11.42 ; Coronary artery disease involving saxman coronary artery of saxman 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 I25.118 and Paroxysmal atrial fibrillation I48.0 [facility] [address] [place] [id number] [place] [address] 73261- 9192 Jun, [facility] [address] [place] [address] 65089- 7708 Jun, [facility] [address] [place] [id number] [place] [address] 43859- 6956 Jun, Gastroenteritis K52.9 [facility] [address] [place] [id number] [place] [address] 89851- 4170 Jun, Gastroenteritis K52.9 [facility] [address] [place] [id number] [place] [address] 66617- 0941 Jun, [facility] [address] [address]- 1630 Jun, [place] [address] [place] [address] 89829- 8872 Jun, Sprain of right ankle, unspecified ligament, initial encounter S93.401A ; Type 2 diabetes mellitus with diabetic neuropathy, without long-term current use of insulin E11.40 ; Atherosclerosis of saxman artery of both lower extremities with intermittent claudication I70.213 ; 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 ; Chronic atrial fibrillation I48.2 and Crohn''s disease without complication, unspecified gastrointestinal tract location K50.90 [facility] [address], [place] [address] 17 Jun, 2017 Cough R05 and Chronic obstructive pulmonary disease with acute lower respiratory infection J44.0 [place] [id number] [place] [address] 70115- 5372 16 Jun, 2017 [facility] [address] [place] [address] 20901- 2883 15 Jun, 2017 Coughing R05 ; Unspecified atherosclerosis of saxman arteries of extremities, unspecified extremity I70.209 ; Type 2 diabetes mellitus with diabetic peripheral angiopathy without gangrene E11.51 ; Crohn''s disease without complication, unspecified gastrointestinal tract location K50.90 ; Other chronic pancreatitis K86.1 and Chronic atrial fibrillation I48.2 [facility] [address], [place] [address] Jun, [facility] [id number] [place] [address] 06007- 8065 Jun, Bipolar affective disorder, currently depressed, moderate F31.32 ; Vascular dementia without behavioral disturbance F01.50 and Generalized anxiety disorder F41.1 [facility] [address] [address]- 7235 May, Generalized anxiety disorder F41.1 [facility] [id number] [place] [address] 54838- 9603 May, [facility] [address] 93461- 9239 May, [facility] [address] [place] [id number] [place] [address] 94822- 4639 May, Coughing R05 [facility] [address] 22413- 8167 May, [facility] [address] [place] [id number] [place] [address] 32746- 9974 May, Bipolar affective disorder, currently depressed, moderate F31.32 ; Vascular dementia without behavioral disturbance F01.50 and Generalized anxiety disorder F41.1 [place] [address] [place] [id number] [place] [address] 65758- 5614 Apr, Generalized anxiety disorder F41.1 [facility] [address] [place] [id number] [place] [address] 08846- 4482 Apr, [place] [address] [place] [id number] [place] [address] 66506- 2242 Apr, Vascular dementia without behavioral disturbance F01.50 ; Generalized anxiety disorder F41.1 and Bipolar affective disorder, currently depressed, moderate F31.32 [place] [id number] [place] [address] 33742- 6985 Apr, Generalized anxiety disorder F41.1 [facility] [address] [place] [id number] [place] [address] 53115 -6217 Apr, Cough R05 and Acute exacerbation of chronic obstructive pulmonary disease (COPD) J44.1 [facility] [address] [place] [id number] [place] [address] 17220- 9374 Apr, [facility] [address] [place] [id number] [place] [address] 54191 -1447 Mar, Cough R05 and Cigarette nicotine dependence without complication F17.210 [place] [id number] [place] [address] 50483- 2018 Mar, [place] [address] [place] [id number] [place] [address] 22305- 0689 Feb, Generalized anxiety disorder F41.1 ; Major depressive disorder, recurrent episode, moderate F33.1 ; Vascular dementia without behavioral disturbance F01.50 and Unspecified psychosis F29 [place] [address] [place] [id number] [place] [address] 57211- 0571 Feb, [place] [address] [place] [id number] [place] [address] 25130- 2868 Feb, [place] [address] [place] [id number] [place] [address] 90695- 5620 Feb, Generalized anxiety disorder F41.1 [place] [address] [place] [id number] [place] [address] 01223- 5923 Feb, Generalized anxiety disorder F41.1 [place] [address] [place] [id number] [place] [address] 57905- 3714 Feb, Dizziness R42 ; Chronic fatigue R53.82 ; Postconcussion syndrome F07.81 ; Fall, initial encounter W19.XXXA and Disorientation R41.0 [place] [address] [place] [id number] [place] [address] 87224- 9761 03 Feb, 2017 Postconcussion syndrome F07.81 ; Injury of head, initial encounter S09.90XA ; Fall, initial encounter W19.XXXA ; Disorientation R41.0 and Acute cystitis with hematuria N30.01 [place] [address] [place] [id number] [place] [address] 91998- 9917 Jan, Gastroesophageal reflux disease, esophagitis presence not specified K21.9 ; Post-menopausal Z78.0 and Migraine without aura and without status migrainosus, not intractable G43.009 [place] [address] [place] [id number] [place] [address] 98194- 3676 Jan, [place] [address] [place] [id number] [place] [address] 29201- 4093 Jan, Generalized anxiety disorder F41.1 ; Major depressive disorder, recurrent episode, moderate F33.1 ; Vascular dementia without behavioral disturbance F01.50 and Unspecified psychosis F29 [facility] [address] [place] [id number] [place] [address] 26837- 3227 Jan, Pneumonia of left lower lobe due to infectious organism J18.1 [facility] [address] [place] [id number] [place] [address] 02961- 2047 Jan, Migraine without aura and with status migrainosus, not intractable G43.001 [facility] [address] [place] [id number] [place] [address] 52029 -7759 Jan, Migraine without aura and without status migrainosus, not intractable G43.009 [place] [address] [place] [id number] [place] [address] 74806- 7941 Dec, Hematoma T14.8 [facility] [address] [place] [id number] [place] [address] 24572- 2368 Dec, [facility] [address] [place] [id number] [place] [address] 17673 -4003 Nov, Fatigue, unspecified type R53.83 [place] [address] [place] [id number] [place] [address] 19401- 8827 Nov, Scabies B86 and Coronary artery disease involving saxman coronary artery of saxman 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 I25.118 [facility] [address] [place] [id number] [place] [address] 59277- 7031 Nov, [place] [address] 05205- 8413 Nov, [facility] [address] [place] [id number] [place] [address] 43972- 4614 Oct, [place] [address] [place] [id number] [place] [address] 94739- 8841 Oct, Generalized anxiety disorder F41.1 and Major depressive disorder, recurrent episode, moderate F33.1 [facility] [address] [place] [id number] [place] [address] 14304- 2726 Oct, Cramp of both lower extremities R25.2 [facility] [address] [place] [id number] [place] [address] 03708- 1585 Oct, Leg cramps R25.2 [facility] [address] [place] [id number] [place] [address] 38295- 3575 Oct, Chronic pain syndrome G89.4 [place] [address] [place] [id number] [place] [address] 32377- 3211 Oct, [facility] [address] [place] [id number] [place] [address] 29499- 0486 Oct, [place] [address] [place] [id number] [place] [address] 01299- 6195 Oct, Routine gynecological examination Z01.419 and Screening for breast cancer Z12.31 [facility] [address] [place] [id number] [place] [address] 64946- 5924 Sep, Diarrhea R19.7 [facility] [address] [place] [id number] [place] [address] 81892- 8193 Sep, Back pain M54.9 [facility] [address] [place] [id number] [place] [address] 64193- 8267 Sep, [facility] [address] [place] [id number] [place] [address] 01085- 7698 Sep, [facility] [address] [place] [id number] [place] [address] 63076 -0504 August, Xeroderma Q80.9 [facility] [address] [place] [id number] [place] [address] 04187- 9440 August, Dementia without behavioral disturbance, unspecified dementia type F03.90 [facility] [address] [place] [id number] [place] [address] 15209- 5758 August, Chronic pain syndrome G89.4 [place] [address] [place] [id number] [place] [address] 00812- 6811 August, [place] [address] 42746- 8347 August, Hyperlipidemia E78.5 ; Other fatigue R53.83 and Other specified hypotension I95.89 [facility] [address] 14966 -8802 August, Dysuria R30.0 ; Other fatigue R53.83 and Other specified hypotension I95.89 [place] [address] 35916- 7938 August, [place] [address] 75183- 0942 Jul, Pain in left knee M25.562 and Gastroenteritis K52.9 [place] [address] 85025- 2164 Jul, [place] [address] 95744- 5358 Jul, Diarrhea R19.7 [facility] [place] [address] 02125 -4768 Jul, Spider bite, accidental or unintentional, initial encounter T63.301A [place] [address] 64688- 8513 Jul, Primary osteoarthritis of right knee M17.11 and Arthritis M19.90 [place] [address] 78026- 6093 Jul, Generalized anxiety disorder F41.1 and Major depressive disorder, recurrent episode, moderate F33.1 [place] [address] 03024- 5983 07 Jul, 2016 Type 2 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 and Temporal headache R51 [facility] [address] 89656- 9168 06 Jul, 2016 Back pain M54.9 [facility] [address] 55669- 4352 05 Jul, 2016 [facility] [address] 02240- 9758 Jul, [facility] [address] 39724- 6239 30 Jun, 2016 Nausea R11.0 [facility] [address] 65235 -4135 Jun, Acute suppurative otitis media of both ears without spontaneous rupture of tympanic membranes, recurrence not specified H66.003 and COPD exacerbation J44.1 [place] [address] 91707- 0448 Jun, Generalized anxiety disorder F41.1 [place] [address] 58946- 0580 16 Jun, 2016 [facility] [address] 21578 -2302 Jun, [facility] [address] 95131 -8332 Jun, Shortness of breath R06.02 and COPD exacerbation J44.1 [place] [address] 74486- 2231 10 Jun, 2016 Eczema, unspecified type L30.9 [place] [address] 31756- 7730 09 Jun, 2016 [place] [address] 92355- 5811 24 May, 2016 [place] [address] 29160- 9983 May, Muscle cramping R25.2 [facility] [address] [place] [id number] [place] [address] 19998- 3799 13 May, 2016 [facility] [address] [place] [id number] [place] [address] 91230- 0858 Apr, Diarrhea R19.7 [facility] [address] [place] [id number] [place] [address] 58986- 6227 Apr, [facility] [address] [place] [id number] [place] [address] 68434- 7557 Apr, Chronic pain syndrome G89.4 [place] [address] [place] [id number] [place] [address] 72729- 1380 Apr, Cramp of both lower extremities R25.2 and Vascular dementia without behavioral disturbance F01.50 [place] [address] [place] [id number] [place] [address] 19560- 2832 Apr, Type 2 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 and Cigarette nicotine dependence without complication F17.210 [place] [address] [place] [id number] [place] [address] 41296- 4954 Mar, Generalized anxiety disorder F41.1 [place] [address] [place] [id number] [place] [address] 76672- 1877 Feb, Generalized anxiety disorder F41.1 and Major depressive disorder, recurrent episode, moderate F33.1 [facility] [address] [place] [id number] [place] [address] 92842- 2302 Feb, [facility] [address] [place] [id number] [place] [address] 04514 -0112 Feb, Dysuria R30.0 and Acute cystitis with hematuria N30.01 [facility] [address] [id number] [place] [address] 01822- 4326 Jan, [facility] [id number] [place] [address] 11950- 6909 Jan, [facility] [address] [place] [address] 2926 Jan, [facility] [id number] [place] [address] 46410- 8444 Jan, [facility] [id number] [place] [address] 47318 -5598 10 Jan, 2016 Wasp sting, accidental or unintentional, initial encounter T63.461A [facility] [address] 6[address]36- 4372 Jan, Encounter for immunization Z23 [facility] [address] 51779- 2329 Jan, [facility] [address] 35497- 3557 Jan, [facility] [id number] [place] [address] 48017- 2973 28 Dec, 2015 Generalized anxiety disorder F41.1 and Major depressive disorder, recurrent episode, moderate F33.1 [facility] [id number] [place] [address] 01441- 2871 21 Dec, 2015 Routine gynecological examination Z01.419 ; Postmenopausal Z78.0 ; Screening breast examination Z12.39 ; Osteopenia M85.80 and Breast cancer screening Z12.39 [facility] [id number] [place] [address] 90079- 3277 20 Dec, 2015 [facility] [id number] [place] [address] 65761- 2586 19 Dec, 2015 [facility] [id number] [place] [address] 12113- 7782 16 Dec, 2015 [facility] [address] 41448- 0370 16 Dec, 2015 [facility] [id number] [place] [address] 37946- 1866 14 Dec, 2015 [facility] [address] 27888- 2933 Dec, [facility] [address], [place] [address] 2974 Nov, [facility] [address], [place] [address] Nov, Cough R05 ; Other viral agents as the cause of diseases classified elsewhere B97.89 and Acute upper respiratory infection, unspecified J06.9 [facility] [address], [place] [address]- 7825 Nov, [facility] [address], [place] [address]- 3352 Nov, [facility] [id number] [place] [address] 27866- 9321 Nov, [facility] [id number] [address]- 4299 Nov, [facility] [address], [place] [address]- 4195 Nov, [facility] [address], [place] [address]- 2960 Oct, [facility] [address], [place] [address]- 1870 Oct, [facility] [address], [place] [address]- 0073 Oct, [facility] [address], [place] [address]- 3175 Oct, Chronic pain syndrome G89.4 [facility] [address], [place] [address]- 9943 Sep, Generalized anxiety disorder F41.1 and Major depressive disorder, recurrent episode, moderate F33.1 [facility] [address], [place] [address]- 2415 Sep, [facility] [id number] [place] [address] 43980- 7201 20 Sep, 2015 [facility] [id number] [place] [address] 46809- 4792 14 Sep, 2015 Generalized anxiety disorder F41.1 [place] [id number] [place] [address] 09578- 6504 13 Sep, 2015 Cramp of both lower extremities R25.2 and Cervicalgia M54.2 [place] [id number] [place] [address] 27202- 3031 06 Sep, 2015 Generalized anxiety disorder F41.1 [place] [id number] [place] [address] 08694- 9367 Sep, [facility] [id number] [place] [address] 15963 -8912 August, Rash R21 ; Itching L29.9 and Allergic response, subsequent encounter T78.40XD [place] [id number] [place] [address] 04810- 5642 August, Primary insomnia F51.01 [facility] [id number] [place] [address] 92029 -2031 August, Rash R21 ; Itching L29.9 and Allergic response, initial encounter T78.40XA [place] [id number] [place] [address] 80012- 2831 August, [place] [id number] [place] [address] 46174- 8091 August, Cramp of both lower extremities R25.2 [place] [id number] [place] [address] 00432- 6722 August, Back pain M54.9 [place] [id number] [place] [address] 65916- 3858 August, [place] [id number] [place] [address] 64880- 8262 August, [facility] [address], [place] [address]17 August, Cramp of both lower extremities R25.2 [facility] [address], [place] [address]- 4885 August, [facility] [address], [place] [address]- 9314 August, Syncope R55 ; Paroxysmal atrial fibrillation I48.0 ; Dementia without behavioral disturbance, unspecified dementia type F03.90 and Chronic pain syndrome G89.4 [facility] [address] [address]- 4933 August, Type 2 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 and Syncope R55 [facility] [address] [address]- 1032 Jul, [facility] [id number] [place] [address] 48588- 8319 Jul, [facility] [address], [place] [address]- 6525 Jul, [facility] [address], [place] [address]- 5489 Jul, [facility] [address], [place] [address]- 3345 Jul, [facility] [address], [place] [address]- 8623 Jul, UTI (urinary tract infection) N39.0 [facility] [address], [place] [address]- 1344 Jul, [facility] [id number] [place] [address] 95613- 3041 Jul, Major depressive disorder, recurrent episode, moderate F33.1 and Generalized anxiety disorder F41.1 [facility] [address], [place] [address]- 9399 Jul, Generalized anxiety disorder F41.1 [facility] [address], [place] [address]- 3359 14 Jul, 2015 Diarrhea R19.7 [facility] [address], [place] [address]- 7801 14 Jul, 2015 [facility] [address], [place] [address]- 9899 Jun, [facility] [id number] [place] [address] 31246- 7434 Jun, Eczema L30.9 [facility] [id number] [place] [address] 32836- 9774 Jun, [facility] [id number] [place] [address] 62437- 3349 Jun, COPD (chronic obstructive pulmonary disease) J44.9 [facility] [id number] [place] [address] 06828- 4948 Jun, [facility] [id number] [place] [address] 28831- 9842 Jun, Major depressive disorder, recurrent episode, moderate F33.1 and Generalized anxiety disorder F41.1 [facility] [address], [place] [address]- 2408 May, [facility] [address], [place] [address]- 3987 May, UTI (urinary tract infection) N39.0 [facility] [address], [place] [address]- 9717 17 May, 2015 [facility] [address], [place] [address]- 2744 May, [facility] [address], [place] [address]- 0947 May, [facility] [id number] [place] [address] 50910- 9870 May, [facility] [id number] [place] [address] 68960- 2501 Apr, Major depressive disorder, recurrent episode, moderate F33.1 and Generalized anxiety disorder F41.1 [facility] [id number] [place] [address] 04199- 4096 Apr, COPD (chronic obstructive pulmonary disease) J44.9 [facility] [id number] [place] [address] 52337- 6059 Apr, [facility] [id number] [place] [address] 44896- 9561 Apr, Atrial flutter I48.92 [facility] [id number] [place] [address] 14751- 5104 Apr, [facility] [id number] [place] [address] 35801- 1212 Apr, [facility] [id number] [place] [address] 07386- 4664 Mar, [facility] [id number] [place] [address] 60367- 3004 Mar, [facility] [id number] [place] [address] 54496- 7151 Mar, [facility] [id number] [place] [address] 39267- 3683 Mar, Hyperlipidemia E78.5 ; Type 2 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 ; Major depressive disorder, recurrent episode, moderate F33.1 and Chronic pain syndrome G89.4 [facility] [id number] [place] [address] 56540- 0876 Mar, [facility] [id number] [place] [address] 20488- 6779 Mar, [facility] [id number] [place] [address] 37460- 4447 Mar, [facility] [id number] [place] [address] 49810- 3135 Mar, [facility] [id number] [place] [address] 27978- 3301 Feb, COPD (chronic obstructive pulmonary disease) J44.9 and Back pain M54.9 [facility] [id number] [place] [address] 54661- 6198 Feb, [facility] [id number] [place] [address] 43818- 2400 Feb, [facility] [id number] [place] [address] 50885- 5322 Feb, [facility] [id number] [place] [address] 72163- 7616 Feb, [facility] [id number] [place] [address] 11153- 6259 Feb, [facility] [id number] [place] [address] 34669- 4902 Feb, [facility] [id number] [place] [address] 66208- 8410 Feb, [facility] [id number] [place] [address] 15304- 4684 Feb, [facility] [id number] [place] [address] 46660- 1623 Feb, Diabetes E11.9 ; Back pain M54.9 and COPD (chronic obstructive pulmonary disease) J44.9 [facility] [id number] [place] [address] 18471- 3050 Jan, [facility] [id number] [place] [address] 80742- 4639 Jan, Major depression, recurrent F33.9 and Generalized anxiety disorder F41.1 [facility] [id number] [place] [address] 42778- 0232 Jan, Chronic pain G89.29 [facility] [id number] [place] [address] 54949- 9108 Jan, 2014 [facility] [id number] [place] [address] 03839- 5921 Jan, [facility] [id number] [place] [address] 17470- 7108 Jan, [facility] [id number] [place] [address] 91964- 7295 Jan, [facility] [id number] [place] [address] 00064- 6238 Jan, Nicotine dependence F17.200 [facility] [id number] [place] [address] 21054- 6575 Jan, Nicotine dependence F17.200 and Back pain M54.9 [facility] [id number] [place] [address] 99974- 9682 Jan, [facility] [id number] [place] [address] 95773- 9199 28 Dec, 2014 [facility] [id number] [place] [address] 19213- 7991 25 Sep, 2014 Anxiety, generalized 300.02 and Major depression, recurrent 296.30 [facility] [id number] [place] [address] 24489- 1448 24 Sep, 2014 [facility] [id number] [place] [address] 42603- 4127 21 Sep, 2014 [facility] [id number] [place] [address] 12101- 4922 17 Sep, 2014 [facility] [id number] [place] [address] 90231- 8309 15 Sep, 2014 [facility] [id number] [place] [address] 02703- 7640 14 Dec, 2014 [facility] [address], [place] [address]- 2264 11 Dec, 2014 [facility] [id number] [place] [address] 87828- 7432 Dec, [facility] [id number] [place] [address] 78151- 3819 08 Dec, 2014 Skin tear 879.8 [facility] [id number] [place] [address] 83666- 5062 08 Dec, 2014 Routine gynecological examination V72.31 ; Breast cancer screening V76.10 and Family history of breast cancer in first degree relative V16.3 [facility] [id number] [place] [address] 83832- 6758 Dec, [facility] [id number] [place] [address] 80648- 9801 Dec, [facility] [id number] [place] [address] 14545- 2010 Nov, [facility] [id number] [place] [address] 76468- 0346 Nov, [facility] [id number] [place] [address] 08588- 4584 Nov, Poor balance 781.99 and Vascular dementia, uncomplicated 290.40 [facility] [id number] [place] [address] 78047- 4596 Nov, [facility] [id number] [place] [address] 79492- 3613 Nov, Major depression, recurrent 296.30 and Anxiety, generalized 300.02 [facility] [id number] [place] [address] 43518- 5012 Nov, [facility] [address] [place] [address] 81544- 4091 Nov, [facility] [id number] [place] [address] 34300- 0493 Nov, [facility] [address], [place] [address]- 0692 Nov, [facility] [address] [address]- 1148 Nov, Vascular dementia, uncomplicated 290.40 and Lumbago 724.2 [facility] [id number] [place] [address] 68688- 7563 Nov, [facility] [id number] [place] [address] 41970- 8909 Nov, [facility] [id number] [place] [address] 28886- 2533 Nov, [facility] [id number] [place] [address] 79643- 7318 Oct, [facility] [id number] [place] [address] 39121- 5840 Oct, [facility] [address], [place] [address]- 0129 Oct, [facility] [id number] [place] [address] 94366- 5938 Oct, COPD (chronic obstructive pulmonary disease) 496 and Hyperlipidemia 272.4 [facility] [address], [place] [address]- 6446 Oct, Major depression, recurrent 296.30 and Anxiety, generalized 300.02 [facility] [address], [place] [address]- 8784 Oct, [facility] [address], [place] [address]- 2744 Oct, [facility] [address], [place] [address]- 4295 Oct, [facility] [address], [place] [address]- 2213 Sep, Lumbago 724.2 and Anxiety state, unspecified 300.00 [facility] [address], [place] [address]- 9213 Sep, [facility] [id number] [place] [address] 22834- 2106 Sep, [facility] [id number] [place] [address] 21689- 7924 August, [facility] [id number] [place] [address] 11725- 7494 August, Major depression, recurrent 296.30 ; Anxiety, generalized 300.02 and No condition on Lawn II V71.09 [facility] [id number] [place] [address] 10446- 9471 August, [facility] [id number] [place] [address] 84995- 3061 August, [facility] [id number] [place] [address] 03923- 2664 Jul, [facility] [id number] [place] [address] 65733- 1157 Jul, [facility] [address] [address]- 3594 Jul, [facility] [address], [place] [address]- 8830 Jun, [facility] [address] [place] [address]- 1053 Jun, [facility] [address] [address]- 0530 Jun, [facility] [address] [address]- 7543 Jun, [facility] [address], [place] [address]- 2275 Jun, [facility] [place] [facility] [address] [facility] [id number] [place] [address]- 4995 23 Jun, 2014 [facility] [place] [facility] [address] [id number] [place] [address]- 1857 23 Jun, 2014 [facility] [place] [facility] [address] [id number] [place] [address]- 7886 17 Jun, 2014 [facility] [place] [facility] [address] [id number] [place] [address]- 5660 13 Jun, 2014 [facility] [place] [facility] [address] [id number] [place] [address]- 6676 13 Jun, 2014 [facility] [place] [facility] [address] [id number] [place] [address]- 9483 10 Jun, 2014 [facility] [place] [facility] [address] [id number] [place] [address]- 6920 10 Jun, 2014 [facility] [place] [facility] [address] [id number] [place] [address]- 5647 Jun, 2014 [facility] [place] [facility] [address] [id number] [place] [address]- 2716 Jun, [facility] [place] [facility] [address] [id number] [place] [address]- 6914 Jun, 2014 [facility] [place] [facility] [address] [id number] [place] [address]- 4670 Jun, [facility] [place] [facility] [address] [id number] [place] [address]- 7440 May, 2014 [facility] [place] [facility] [address] [id number] [place] [address]- 5614 May, 2014 [facility] [place] [facility] [address] [id number] [place] [address]- 6812 May, 2014 [facility] [place] [facility] [address] [id number] [place] [address]- 8976 May, 2014 [facility] [place] [facility] [address] [id number] [place] [address]- 5972 May, 2014 [facility] [place] [facility] [address] [id number] [place] [address]- 6437 May, 2014 [facility] [place] [facility] [address] [id number] [place] [address]- 2616 May, 2014 [facility] [place] [facility] [address] [facility] [id number] [place] [address]- 5776 May, 2014 [facility] [place] [facility] [address] [id number] [place] [address]- 6913 May, 2014 [facility] [place] [facility] [address] [id number] [place] [address]- 2598 May, 2014 [facility] [place] [facility] [address] [facility] [id number] [place] [address]- 6556 May, 2014 [facility] [place] [facility] [address] [facility] [id number] [place] [address]- 5532 May, 2014 [facility] [place] [facility] [address] [facility] [id number] [place] [address]- 0986 May, [facility] [place] [facility] [address] [facility] [id number] [place] [address]- 9504 May, 2014 [facility] [place] [facility] [address] [facility] [id number] [place] [address]- 6216 Apr, [facility] [place] [facility] [address] [facility] [id number] [place] [address] 2545 Apr, [facility] [place] [facility] [address] [facility] [id number] [place] [address]- 2542 Apr, [facility] [place] [facility] [address] [id number] [place] [address]- 2463 Apr, [facility] [place] [facility] [address] [facility] [id number] [place] [address] Apr, [facility] [place] [facility] [address] [facility] [id number], [place] [address] Apr, [facility] [place] [facility] [address] [id number] [place] [address] Apr, [facility] [place] [facility] [address] [id number] [place] [address] Apr, [facility] [place] [facility] [address] [id number] [place] [address] Apr, [facility] [place] [facility] [address] [id number] [place] [address] Apr, [facility] [place] [facility] [address] [id number] [place] [address] Apr, [facility] [place] [facility] [address] [id number] [place] [address] Apr, [facility] [place] [facility] [address] [id number] [place] [address] Mar, [facility] [place] [facility] [address] [id number] [place] [address] 31 Mar, 2014 [facility] [place] [facility] [address] [id number] [place] [address] 30 Mar, 2014 [facility] [place] [facility] [address] [id number] [place] [address] 30 Mar, 2014 [facility] [place] [facility] [address] [id number] [place] [address] 29 Mar, 2014 [facility] [place] [facility] [address] [id number] [place] [address]67 29 Mar, 2014 [facility] [place] [facility] [address] [id number] [place] [address] Mar, [facility] [place] [facility] [address] [id number] [place] [address] 19 Mar, 2014 [facility] [place] [facility] [address] [id number] [place] [address] 15 Mar, 2014 [facility] [place] [facility] [address] [id number] [place] [address] Mar, [facility] [place] [facility] [address] [id number] [place] [address]- [address]294 Mar, [facility] [place] [facility] [address] [id number] [place] [address] Mar, [facility] [place] [facility] [address] [id number] [place] [address] Mar, [facility] [place] [facility] [address] [id number] [place] [address] Mar, [facility] [place] [facility] [address] [id number] [place] [address] Mar, [facility] [place] [facility] [address] [id number] [place] [address]- [address] Mar, [facility] [place] [facility] [address] [id number] [place] [address] Mar, [facility] [place] [facility] [address] [id number] [place] [address] Mar, [facility] [place] [facility] [address] [id number] [place] [address] Mar, [facility] [place] [facility] [address] [id number] [place] [address] Mar, [facility] [place] [facility] [address] [id number] [place] [address]- 2012 Feb, [facility] [place] [facility] [address] [id number] [place] [address] Feb, [facility] [place] [facility] [address] [id number] [place] [address] Feb, [facility] [place] [facility] [address] [id number] [place] [address] Feb, [facility] [place] [facility] [address] [id number] [place] [address] Feb, [facility] [place] [facility] [address] [id number] [place] [address] Feb, [facility] [place] [facility] [address] [id number] [place] [address] Feb, [facility] [place] [facility] [address] [id number] [place] [address] Feb, [facility] [place] [facility] [address] [id number] [place] [address] Feb, [facility] [place] [facility] [address] [id number] [place] [address] Feb, [facility] [place] [facility] [address] [id number] [place] [address] Feb, [facility] [place] [facility] [address] [id number] [place] [address] Feb, [facility] [place] [facility] [address] [id number] [place] [address] 57[address] Feb, [facility] [place] [facility] [address] [id number] [place] [address] 4690 Feb, [facility] [place] [facility] [address] [id number] [place] [address] 1082 Feb, [facility] [place] [facility] [address] [facility] [id number] [place] [address] 9056 Feb, [facility] [place] [facility] [address] [id number] [place] [address]- 8575 Feb, [facility] [place] [facility] [address] [id number] [place] [address]- 9722 Jan, [facility] [place] [facility] [address] [id number] [place] [address]- 9086 Jan, [facility] [place] [facility] [address] [id number] [place] [address]- 1475 Jan, [facility] [place] [facility] [address] [id number] [place] [address]- 6678 Jan, [facility] [place] [facility] [address] [id number] [place] [address]- 0092 Jan, [facility] [place] [facility] [address] [id number] [place] [address] 9861 Jan, [facility] [place] [facility] [address] [id number] [place] [address]- 3138 Jan, [facility] [place] [facility] [address] [id number] [place] [address] 9543 Jan, [facility] [place] [facility] [address] [id number] [place] [address]- 3201 Jan, [facility] [place] [facility] [address] [id number] [place] [address]- 7672 Jan, [facility] [place] [facility] [address] [id number] [place] [address]- 5717 Jan, [facility] [place] [facility] [address] [id number] [place] [address]- 3910 Dec, [facility] [place] [facility] [address] [id number] [place] [address]- 9011 Dec, [facility] [place] [facility] [address] [id number] [place] [address]- 3560 Nov, [facility] [place] [facility] [address] [id number], [place] [address] 46[address] Nov, [facility] [place] [facility] [address] [id number], [place] [address]- 3648 Nov, [facility] [place] [facility] [address] [id number] [place] [address]- 8409 Nov, [facility] [place] [facility] [address] [id number] [place] [address]- 0814 Nov, [facility] [place] [facility] [address] [id number] [address] Nov, [facility] [place] [facility] [address] [id number], [place] [address]- 8528 Nov, [facility] [place] [facility] [address] [id number] [place] [address]- 8118 Oct, [facility] [place] [facility] [address] [id number] [place] [address]- 0890 Oct, [facility] [place] [facility] [address] [id number] [place] [address]- 6214 Oct, [facility] [place] [facility] [address] [id number] [place] [address]- 0654 Oct, [facility] [place] [facility] [address] [id number] [place] [address]- 1506 Sep, [facility] [place] [facility] [address] [id number] [place] [address]- 4663 Sep, [facility] [place] [facility] [address] [id number] [place] [address]- 4593 Sep, [facility] [place] [facility] [address] [id number] [place] [address]- 5508 Sep, [facility] [place] [facility] [address] [id number] [place] [address]- 1512 Sep, [facility] [place] [facility] [address] [facility] [id number] [place] [address]- 8985 Sep, [facility] [place] [facility] [address] [id number] [place] [address]- 0533 Sep, [facility] [place] [facility] [address] [id number], [place] [address]- 30[address] Sep, [facility] [place] [facility] [address] [id number] [place] [address]- 0905 Sep, [facility] [place] [facility] [address] [id number] [place] [address]- 2707 Sep, [facility] [place] [facility] [address] [facility] [id number] [place] [address]- 0548 Sep, [facility] [place] [facility] [address] [id number] [place] [address]- 6932 Sep, [facility] [place] [facility] [address] [id number] [place] [address]- 1032 Sep, [facility] [place] [facility] [address] [id number] [place] [address]- 6478 Sep, [facility] [place] [facility] [address] [id number] [place] [address]- 2539 August, [facility] [place] [facility] [address] [id number] [place] [address]- 7990 August, [facility] [place] [facility] [address] [id number] [place] [address]- 1562 August, [facility] [place] [facility] [address] [id number] [place] [address]- 1492 August, [facility] [place] [facility] [address] [id number] [place] [address]- 9196 August, [facility] [place] [facility] [address] [id number] [place] [address]- 9436 August, [facility] [place] [facility] [address] [id number] [place] [address]- 3783 August, [facility] [place] [facility] [address] [id number] [place] [address]- 4687 August, [facility] [place] [facility] [address] [id number] [place] [address]- 4712 August, [facility] [place] [facility] [address] [id number] [place] [address]- 0308 August, [facility] [place] [facility] [address] [id number] [place] [address]39 August, [facility] [place] [facility] [address] [id number] [place] [address]- 8451 August, [facility] [place] [facility] [address] [id number] [place] [address]- 1446 August, [facility] [place] [facility] [address] [id number] [place] [address]- 9792 August, [facility] [place] [facility] [address] [id number] [place] [address]- 4243 August, [facility] [place] [facility] [address] [id number] [place] [address]- 7891 August, [facility] [place] [facility] [address] [id number] [place] [address]- 4483 August, [facility] [place] [facility] [address] [id number] [place] [address]- 1025 August, [facility] [place] [facility] [address] [id number] [place] [address]- 3863 August, [facility] [place] [facility] [address] [id number] [place] [address]- 8202 Jul, [facility] [place] [facility] [address] [id number] [place] [address]- 6861 Jul, [facility] [place] [facility] [address] [id number] [place] [address]- 2579 Jul, [facility] [place] [facility] [address] [id number] [place] [address]- 2087 Jul, [facility] [place] [facility] [address] [id number] [place] [address]- 8897 Jun, [facility] [place] [facility] [address] [id number], [place] [address]- 6081 Jun, [facility] [place] [facility] [address] [id number] [place] [address]- 7837 Jun, [facility] [place] [facility] [address] [id number] [place] [address]- 9083 Jun, [facility] [place] [facility] [address] [id number] [place] [address]- 0320 Jun, [facility] [place] [facility] [address] [id number] [place] [address]- 5804 17 Jun, 2013 [facility] [place] [facility] [address] [id number] [place] [address]- 2841 14 Jun, 2013 [facility] [place] [facility] [address] [id number] [place] [address]- 0278 14 Jun, 2013 [facility] [place] [facility] [address] [id number] [place] [address]- 0924 06 Jun, 2013 [facility] [place] [facility] [address] [id number] [place] [address]- 1322 06 Jun, 2013 [facility] [place] [facility] [address] [id number] [place] [address]- 8072 May, [facility] [place] [facility] [address] [id number] [place] [address]- 9206 May, [facility] [place] [facility] [address] [facility] [id number] [place] [address]- 6770 May, [facility] [place] [facility] [address] [id number] [place] [address]- 7353 27 May, 2013 [facility] [place] [facility] [address] [facility] [id number] [place] [address]- 4616 May, [facility] [place] [facility] [address] [facility] [id number] [place] [address]- 3084 May, [facility] [place] [facility] [address] [facility] [id number] [place] [address]- 0162 20 May, 2013 [facility] [place] [facility] [address] [id number] [place] [address]- 7175 May, [facility] [place] [facility] [address] [id number] [place] [address]- 1820 May, [facility] [place] [facility] [address] [facility] [id number] [place] [address]- 9628 18 May, 2013 [facility] [place] [facility] [address] [facility] [id number] [place] [address]- 2890 18 May, 2013 [facility] [place] [facility] [address] [id number] [place] [address]- 5207 17 May, 2013 [facility] [place] [facility] [address] [id number] [place] [address]- 0056 May, [facility] [place] [facility] [address] [id number] [place] [address]- 4496 May, [facility] [place] [facility] [address] [id number] [place] [address]- 6908 May, [facility] [place] [facility] [address] [id number] [place] [address]- 7961 May, [facility] [place] [facility] [address] [id number] [place] [address]- 1685 May, [facility] [place] [facility] [address] [facility] [id number] [place] [address]- 4547 Apr, [facility] [place] [facility] [address] [id number] [place] [address]- 2748 Apr, [facility] [place] [facility] [address] [facility] [id number] [place] [address]- 2869 Apr, [facility] [place] [facility] [address] [facility] [id number] [place] [address]- 7714 Apr, [facility] [place] [facility] [address] [id number] [place] [address]- 2738 Apr, [facility] [place] [facility] [address] [id number] [place] [address]- 4112 Apr, [facility] [place] [facility] [address] [id number] [place] [address]- 4955 Apr, [facility] [place] [facility] [address] [id number] [place] [address]- 9632 Mar, [facility] [place] [facility] [address] [facility] [id number] [place] [address]- 7686 Mar, [facility] [place] [facility] [address] [id number] [place] [address]- 0351 Mar, [facility] [place] [facility] [address] [id number] [place] [address]- 2246 Mar, [facility] [place] [facility] [address] [id number] [place] [address]- 8556 Mar, [facility] [place] [facility] [address] [id number] [place] [address]- 9756 Mar, [facility] [place] [facility] [address] [id number] [place] [address] 2545 Mar, [facility] [place] [facility] [address] [id number] [place] [address]- 8466 Mar, [facility] [place] [facility] [address] [id number] [place] [address]- 4363 Mar, [facility] [place] [facility] [address] [id number] [place] [address]- 5943 Mar, [facility] [place] [facility] [address] [id number] [place] [address]- 3932 Mar, [facility] [place] [facility] [address] [id number] [place] [address]- 1213 Feb, [facility] [place] [facility] [address] [id number] [place] [address]- 1144 Feb, [facility] [place] [facility] [address] [id number] [place] [address]- 8126 Feb, [facility] [place] [facility] [address] [id number] [place] [address]- 2653 Feb, [facility] [place] [facility] [address] [id number] [place] [address]- 1566 Feb, [facility] [place] [facility] [address] [id number] [place] [address] 2548 Feb, [facility] [place] [facility] [address] [id number] [place] [address]- 8037 15 Feb, 2013 [facility] [place] [facility] [address] [id number] [place] [address]- 6309 14 Feb, 2013 [facility] [place] [facility] [address] [id number], [place] [address]- 2062 14 Feb, 2013 [facility] [place] [facility] [address] [id number] [place] [address]- 6134 13 Feb, 2013 [facility] [place] [facility] [address] [id number], [place] [address]- 9328 13 Feb, 2013 [facility] [place] [facility] [address] [id number] [place] [address]- 4733 Feb, [facility] [place] [facility] [address] [id number], [place] [address]- 5085 Feb, [facility] [place] [facility] [address] [id number], [place] [address]- 0614 Feb, [facility] [place] [facility] [address] [id number], [place] [address]- 1598 Feb, [facility] [place] [facility] [address] [id number], [place] [address]- 2505 Feb, [facility] [place] [facility] [address] [id number], [place] [address]- 0771 Jan, [facility] [place] [facility] [address] [id number], [place] [address]- 2548 24 Jan, 2013 [facility] [place] [facility] [address] [id number], [place] [address]- 6994 24 Jan, 2013 [facility] [place] [facility] [address] [id number], [place] [address]- 4444 Jan, [facility] [place] [facility] [address] [id number], [place] [address]- 6344 24 Jan, 2013 [facility] [place] [facility] [address] [id number], [place] [address]- 4730 Jan, [facility] [place] [facility] [address] [id number] [place] [address]- 7762 Jan, [facility] [place] [facility] [address] [id number] [place] [address]- 9729 10 Jan, 2013 [facility] [place] [facility] [address] [id number] [place] [address]- 2546 10 Jan, 2013 [facility] [place] [facility] [address] [id number] [place] [address]- 6039 27 Dec, 2012 [facility] [place] [facility] [address] [id number] [place] [address] 2541 20 Dec, 2012 [facility] [place] [facility] [address] [id number] [place] [address]- 3278 19 Dec, 2012 [facility] [place] [facility] [address] [id number] [place] [address]- 5731 10 Dec, 2012 [facility] [place] [facility] [address] [id number] [place] [address]- 2500 04 Dec, 2012 [facility] [place] [facility] [address] [id number] [place] [address]- 9244 03 Dec, 2012 [facility] [place] [facility] [address] [id number] [place] [address]- 7475 Nov, [facility] [place] [facility] [address] [id number] [place] [address]- 2540 Nov, [facility] [place] [facility] [address] [id number] [place] [address] 2545 Nov, [facility] [place] [facility] [address] [id number] [place] [address]- 2549 Nov, [facility] [place] [facility] [address] [id number] [place] [address] 2547 Nov, [facility] [place] [facility] [address] [id number] [place] [address]- 254 Nov, [facility] [place] [facility] [address] [id number] [place] [address]- 2547 Nov, [facility] [place] [facility] [address] [id number] [place] [address]- 6358 Nov, [facility] [place] [facility] [address] [id number] [place] [address]- 0547 Nov, [facility] [place] [facility] [address] [id number] [place] [address]- 0908 Nov, [facility] [place] [facility] [address] [id number] [place] [address]- 3374 Oct, [facility] [place] [facility] [address] [id number] [place] [address]- 5561 Oct, [facility] [place] [facility] [address] [id number] [place] [address]- 5737 Oct, [facility] [place] [facility] [address] [id number] [place] [address]- 6617 Oct, [facility] [place] [facility] [address] [id number] [place] [address]- 8749 Oct, [facility] [place] [facility] [address] [id number] [place] [address]- 0553 Oct, [facility] [place] [facility] [address] [id number] [place] [address]- 1842 Oct, [facility] [place] [facility] [address] [id number] [place] [address]- 0902 Oct, [facility] [place] [facility] [address] [id number] [place] [address]- 7441 Sep, [facility] [place] [facility] [address] [id number] [place] [address]- 4128 Sep, [facility] [place] [facility] [address] [id number] [place] [address]- 6200 Sep, [facility] [place] [facility] [address] [id number] [place] [address]- 1922 Sep, [facility] [place] [facility] [address] [id number] [place] [address]- [address] Sep, [facility] [address] [id number] [place] [address]- 2882 Sep, [facility] [address] [id number] [place] 6922 Sep, [facility] [address] [id number] [place] [address]- 5229 Sep, [facility] [address] [id number] [place] [address]- 9380 August, [facility] [address] [id number] [place] [address]- 4140 August, [facility] [address] [id number] [place] [address]- 9002 August, [facility] [address] [id number] [place] [address]- 2550 August, [facility] [address] [id number] [place] [address]- 9494 August, [facility] [address] [id number] [place] [address]- 1615 Jul, [facility] [address] [id number] [place] [address]- 3913 Jul, [facility] [address] [id number] [place] [address]- 7035 Jul, [facility] [place] [facility] [address] [id number] [place] [address]- 5138 Jul, [facility] [place] [facility] [address] [id number] [place] 8595 Jul, [facility] [place] [facility] [address] [id number] [place] 5712 Jun, [facility] [place] [facility] [address] [id number] [place] [address]- 9565 Jun, [facility] [place] [facility] [address] [id number] [place] [address]- 1413 15 Jun, [address] [facility] [address] [id number] [place] [address]- 2488 14 Jun, 2012 [facility] [place] [facility] [address] [id number] [place] [address]- 4042 12 Jun, [address] [facility] [address] [id number] [place] [address]- 8839 08 Jun, 2012 [facility] [address] [id number] [place] [address]- 2068 08 Jun, [address] [facility] [address] [id number] [place] [address]- 9460 02 Jun, [address] [facility] [address] [id number] [place] [address]- 8995 Jun, [facility] [address] [id number] [place] [address]- 8163 27 May, 2012 [facility] [address] [id number] [place] [address]- 2884 25 May, [address] [facility] [address] [id number] [place] [address]- 9103 May, [facility] [address] [id number] [place] [address]- 6267 12 May, [address] [facility] [address] [id number] [place] [address] Apr, [facility] [address] [id number] [place] [address] 09 Apr, 2012 [facility] [place] [facility] [address] [id number] [place] [address] Apr, [facility] [place] [facility] [address] [id number] [place] [address] 07 Apr, 2012 [facility] [place] [facility] [address] [id number] [place] [address] Apr, [facility] [address] [id number] [place] [address] Apr, [facility] [address] [id number] [place] [address] Apr, [facility] [address] [id number] [place] [address] Mar, [facility] [address] [place] [id number] Mar, [facility] [address] [id number] [place] [address] Mar, [facility] [address] [id number] [place] [address] Mar, [facility] [address] [id number] [place] [address] 39[address] Mar, [facility] [address] [id number] [place] [address] Mar, [facility] [address] [id number] [place] [address]463 Mar, [facility] [address] [id number] [place] [address] Mar, [facility] [address] [id number] [place] [address] Mar, [facility] [address] [id number], [place] [address] Mar, [facility] [address] [id number] [place] [address] Mar, [facility] [address] [id number] [place] [address] Mar, [facility] [address] [id number] [place] [address] 47[address] Mar, [facility] [address] [id number], [place] [address] Mar, [facility] [place] [facility] [address] [id number] [place] [address] Mar, [facility] [place] [facility] [address] [id number] [place] [address] Mar, [facility] [place] [facility] [address] [id number] [place] [address]60 Mar, [facility] [place] [facility] [address] [id number] [place] [address] Feb, [facility] [place] [facility] [address] [id number] [place] [address]131 Feb, [facility] [place] [facility] [address] [id number] [place] [address] 1993 Feb, [facility] [place] [facility] [address] [id number] [place] [address] Feb, [facility] [place] [facility] [address] [id number] [place] [address] Feb, [facility] [place] [facility] [address] [id number] [place] [address]398 Feb, [facility] [place] [facility] [address] [id number] [place] [address] 134[address] Feb, [facility] [place] [facility] [address] [id number], [place] [address] Feb, [facility] [place] [facility] [address] [id number], [place] [address] Feb, [facility] [place] [facility] [address] [id number], [place] [address] Feb, [facility] [place] [facility] [address] [id number] [place] [address] 3275 Feb, [facility] [place] [facility] [address] [id number] [place] [address]- 7693 Feb, [facility] [place] [facility] [address] [id number] [place] [address] Feb, [facility] [place] [facility] [address] [id number] [place] [address] Feb, [facility] [place] [facility] [address] [id number] [place] [address] 9959 Feb, [facility] [place] [facility] [address] [id number] [place] [address] Feb, [facility] [place] [facility] [address] [id number] [place] [address] 79[address] Jan, [facility] [place] [facility] [address] [id number] [place] [address] Jan, [facility] [place] [facility] [address] [id number] [place] [address]- 46[address] Jan, [facility] [place] [facility] [address] [id number] [place] [address] 8089 Jan, [facility] [place] [facility] [address] [id number] [place] [address] Jan, [facility] [place] [facility] [address] [id number] [place] [address]- [address] Jan, [facility] [place] [facility] [address] [id number] [place] [address] 8600 Jan, [facility] [place] [facility] [address] [id number] [place] [address]- 9877 Jan, [facility] [place] [facility] [address] [id number] [place] [address]- 5[address] Jan, [facility] [place] [facility] [address] [id number] [place] [address] Jan, [facility] [place] [facility] [address] [id number] [place] [address] Jan, [facility] [place] [facility] [address] [id number] [place] [address] 1881 Jan, [facility] [place] [facility] [address] [id number] [place] [address]- 38[address] Jan, [facility] [place] [facility] [address] [id number] [place] [address]- 1635 Jan, [facility] [place] [facility] [address] [id number] [place] [address]- [address] 08 Jan, 2012 [facility] [place] [facility] [address] [id number] [place] [address]- 5828 05 Jan, 2012 [facility] [place] [facility] [address] [id number] [place] [address]- [address]295 04 Jan, 2012 [facility] [place] [facility] [address] [id number] [place] [address]- [address]677 21 Dec, 2011 [facility] [place] [facility] [address] [id number] [place] [address]- 3567 20 Dec, 2011 [facility] [place] [facility] [address] [id number] [place] [address]- 4620 18 Dec, 2011 [facility] [place] [facility] [address] [id number] [place] [address]- 9063 18 Dec, 2011 [facility] [place] [facility] [address] [id number] [place] [address]- 4588 10 Dec, 2011 [facility] [place] [facility] [address] [id number], [place] [address]- [address] 10 Dec, 2011 [facility] [place] [facility] [address] [id number], [place] [address]- 9036 10 Dec, 2011 [facility] [place] [facility] [address] [id number] [place] [address]- 9600 07 Dec, 2011 [facility] [place] [facility] [address] [id number], [place] [address]- [address] 30 Nov, 2011 [facility] [place] [facility] [address] [id number] [place] [address]- 7248 Nov, [facility] [place] [facility] [address] [id number] [place] [address]- 0953 Nov, [facility] [place] [facility] [address] [id number] [place] [address]- 1276 Nov, [facility] [place] [facility] [address] [id number] [place] [address]- 8236 Nov, [facility] [place] [facility] [address] [id number] [place] [address]- 1006 Nov, [facility] [place] [facility] [address] [id number] [place] [address]- 4626 Oct, [facility] [place] [facility] [address] [id number] [place] [address]- 4161 Oct, [facility] [place] [facility] [address] [id number] [place] [address]- 1546 Oct, [facility] [place] [facility] [address] [id number] [place] [address]- 3858 Oct, [facility] [place] [facility] [address] [id number] [place] [address]- 7165 Oct, [facility] [place] [facility] [address] [id number] [place] [address] Oct, [facility] [place] [facility] [address] [id number] [place] [address] Oct, [facility] [place] [facility] [address] [id number] [place] [address] Sep, [facility] [place] [facility] [address] [id number] [place] [address] Sep, [facility] [place] [facility] [address] [id number] [place] [address] Sep, [facility] [place] [facility] [address] [id number] [place] [address] Sep, [facility] [place] [facility] [address] [id number] [place] [address] Sep, [facility] [place] [facility] [address] [id number] [place] [address] 15 Sep, 2011 [facility] [place] [facility] [address] [id number] [place] [address] 14 Sep, 2011 [facility] [place] [facility] [address] [id number] [place] [address] Sep, [facility] [place] [facility] [address] [id number] [place] [address] 05 Sep, 2011 [facility] [place] [facility] [address] [id number] [place] [address] Sep, [facility] [place] [facility] [address] [id number] [place] [address] August, [facility] [place] [facility] [address] [id number] [place] [address] August, [facility] [place] [facility] [address] [id number] [place] [address] August, [facility] [place] [facility] [address] [id number] [place] [address] August, [facility] [place] [facility] [address] [id number] [place] [address] August, [facility] [place] [facility] [address] [id number] [place] [address] Jul, [facility] [place] [facility] [address] [id number] [place] [address] Jul, [facility] [place] [facility] [address] [id number] [place] [address] Jul, [facility] [place] [facility] [address] [id number] [place] [address] 17 Jul, 2011 [facility] [place] [facility] [address] [id number] [place] [address] 11 Jul, 2011 [facility] [place] [facility] [address] [id number] [place] [address] Jul, [facility] [place] [facility] [address] [id number] [place] [address] Jul, [facility] [place] [facility] [address] [id number] [place] [address] Jun, [facility] [place] [facility] [address] [facility] [id number] [place] [address] Jun, [facility] [place] [facility] [address] [id number] [place] [address] Jun, [facility] [place] [facility] [address] [id number] [place] [address] Jun, [facility] [place] [facility] [address] [facility] [id number] [place] [address] Jun, [facility] [place] [facility] [address] [facility] [id number] [place] [address] May, [facility] [place] [facility] [address] [id number] [place] [address] May, [facility] [place] [facility] [address] [id number] [place] [address] May, [facility] [place] [facility] [address] [facility] [id number] [place] [address] May, [facility] [place] [facility] [address] [facility] [id number] [place] [address] May, [facility] [place] [facility] [address] [id number] [place] [address] May, [facility] [place] [facility] [address] [id number] [place] [address] Apr, [facility] [place] [facility] [address] [facility] [id number] [place] [address] Mar, [facility] [place] [facility] [address] [facility] [id number] [place] [address] 69[address] Feb, [facility] [place] [facility] [address] [id number] [place] [address] 07 Feb, 2011 [facility] [place] [facility] [address] [id number] [place] [address] Feb, [facility] [place] [facility] [address] [id number] [place] [address] 25[address] Feb, [facility] [place] [facility] [address] [id number] [place] [address] 31 Jan, 2011 [facility] [place] [facility] [address] [id number] [place] [address] Jan, [facility] [place] [facility] [address] [id number] [place] [address] Jan, [facility] [place] [facility] [address] [id number] [place] [address] 24 Jan, 2011 [facility] [place] [facility] [address] [id number] [place] [address] 14 Jan, 2011 [facility] [place] [facility] [address] [id number] [place] [address]783 Dec, [facility] [place] [facility] [address] [id number] [place] [address]489 Oct, [facility] [place] [facility] [address] [id number] [place] [address] 4046 August, [facility] [place] [facility] [address] [id number] [place] [address]- [address]27 29 Mar, 2010 [facility] [place] [facility] [address] [id number] [place] [address] 2549 27 Mar, 2010 [facility] [place] [facility] [address] [id number] [place] [address] 2546 16 Mar, 2010 [facility] [place] [facility] [address] [id number] [place] [address] 2546 15 Mar, 2010 [facility] [place] [facility] [address] [id number] [place] [address] 15 Mar, 2010 [facility] [place] [facility] [address] [id number] [place] [address]- [address] 08 Mar, 2010 [facility] [place] [facility] [address] [id number] [place] [address]- [address] Mar, [facility] [place] [facility] [address] [id number] [place] [address] 2[address] Feb, [facility] [place] [facility] [address] [id number] [place] [address] 1665 Feb, [facility] [place] [facility] [address] [id number] [place] [address]149 Feb, [facility] [place] [facility] [address] [id number] [place] [address] Jan, [facility] [place] [facility] [address] [id number] [place] [address] 9087 Jan, [facility] [place] [facility] [address] [id number], [place] [address] Jan, [facility] [place] [facility] [address] [id number] [place] [address]- 3031 Nov, [facility] [place] [facility] [address] [id number], [place] [address] Sep, [facility] [place] [facility] [address] [id number], [place] [address] August, [facility] [place] [facility] [address] [id number], [place] [address] 30 Mar, 2009 [facility] [place] [facility] [address] [id number] [place] [address]- 6427 Mar, [facility] [place] [facility] [address] [id number], [place] [address] 17 Feb, 2009 [facility] [place] [facility] [address] [facility] [id number], [place] [address] Feb, [facility] [place] [facility] [id number] [place] [address] 10 Feb, 2009 [facility] [id number] [address] 10 Feb, 2009 [facility] [id number] [address] Feb, [facility] [id number], [place] [address] Jan, [facility] [id number], [place] [address] Jan, [facility] [id number] [place] [address] Jan, [facility] [id number] [place] [address]- 6284 Jan, [facility] [id number] [place] [address]- 5448 Nov, [facility] [id number], [place] [address] Sep, [facility] [address], [place] [address] August, [facility] [address] [place] [address] Jul, [facility] [address] [place] [address]- [address] May, IMMUNIZATIONS No Known Immunizations SOCIAL HISTORY Never Assessed REASON FOR VISIT med refill PLAN OF CARE VITAL SIGNS MEDICATIONS Medication Instructions Dosage Frequency Start Date End Date Duration Status Namenda 10 mg TAKE 1 TABLET EVERY DAY 90 days Active RESULTS No Results PROCEDURES [...] Knee Surgery 07/16/17 Hospitalization History [facility] [place]- left hand/wrist swelling 10/09/2017
--- OUTSIDE RECORDS SUMMARY | 2018-01-01 11:33 | XMS REPORT ---
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210 Active 89734646 Problem Vascular dementia without behavioral disturbance F01.50 Active 90938625542328107 Problem Arthritis M19.90 Active 1072245 Problem Chronic atrial fibrillation I48.2 Active 916522834 Problem Dementia without behavioral disturbance, unspecified dementia type F03.90 Active 57326502 Problem Other chronic pancreatitis K86.1 Active 311396315 Problem Xeroderma Q80.9 Active 04335349 Problem Chronic obstructive pulmonary disease with acute lower respiratory infection J44.0 Active 858027472 Problem Type 2 diabetes mellitus with diabetic neuropathy, without long-term current use of insulin E11.40 Active 91836633 Problem 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 Active 252117466896976 Problem Hammertoe of right foot M20.41 Active 836572208 Problem Hammertoe of left foot M20.42 Active 621624782 Problem Migraine without aura and with status migrainosus, not intractable G43.001 Active 341850165 Problem Migraine without aura and without status migrainosus, not intractable G43.009 Active 369345712 Problem Major depressive disorder, recurrent episode, moderate F33.1 Active 488282817 Problem Unspecified psychosis F29 Active 73710371 Problem Cervicalgia M54.2 Active 2803825965812 Problem Diabetic polyneuropathy associated with type 2 diabetes mellitus E11.42 Active 56285058 Problem COPD (chronic obstructive pulmonary disease) J44.9 Active 81547963 Problem 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 Active 8021907628946 Problem Gastroparesis K31.84 Active 520202865 Problem Stress incontinence of urine N39.3 Active 48876782 Problem Osteoporosis M81.0 Active 51342101 Problem Controlled type 2 diabetes mellitus without complication, without long -term current use of insulin E11.9 Active 612252117 Problem Barretts esophagus K22.70 Active 995570826 Problem Chronic fatigue R53.82 Active 27325057 Problem History of common bile duct surgery Z98.89 Active 503920212 Problem Bipolar affective disorder, currently depressed, moderate F31.32 Active 088047785 Problem Generalized anxiety disorder F41.1 Active 104796913 Problem Gastroesophageal reflux disease, esophagitis presence not specified K21.9 Active 549470959 Problem 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 I25.118 Active 1794431701815 Problem Postconcussion syndrome F07.81 Active 38872071 Problem Chronic pain syndrome G89.4 Active 101695317 Problem Type 2 diabetes mellitus with diabetic peripheral angiopathy without gangrene E11.51 Active 027582115 Problem Paroxysmal atrial fibrillation I48.0 Active 182062921 Problem Unspecified atherosclerosis of pamunkey arteries of extremities, unspecified extremity I70.209 Active 792170793341052 Problem Acute exacerbation of chronic obstructive pulmonary disease (COPD) J44.1 Active 109964252 Problem Crohn''s disease without complication, unspecified gastrointestinal tract location K50.90 Active 69754316 ALLERGIES No Information ENCOUNTERS Encounter Location Date Diagnosis [facility], [place] [address] [facility] [id number] [address] Feb, [facility], [place] [address] [facility] [id number], [place] [address] Nov, Onychomycosis B35.1 ; Hammertoe of left foot M20.42 ; Hammertoe of right foot M20.41 and Type 2 diabetes mellitus with diabetic neuropathy, without long-term current use of insulin E11.40 [place] [address] [place] [id number] [place] [address] 56086- 9761 Nov, [place] [address] 29252- 7869 Nov, Bronchitis J40 [place] [address] [place] [id number] [place] [address] 88626- 2420 Oct, [place] [address] 45249- 5094 Oct, Bipolar affective disorder, currently depressed, moderate F31.32 ; Vascular dementia without behavioral disturbance F01.50 and Generalized anxiety disorder F41.1 [place] [address] 49755- 1433 Oct, [place] [address] 15227- 3145 Oct, [place] [address] [place] [id number] [place] [address] 75842- 5996 Oct, Edema of both legs R60.0 [place] [address] 28997- 4201 Oct, [place] [address] [place] [id number] [place] [address] 07005- 3029 Sep, [place] [address] [place] [id number] [place] [address] 62050- 0654 Sep, [place] [address] [place] [id number] [place] [address] 12104- 9978 Sep, [place] [address] [place] [id number] [place] [address] 26007- 8824 18 Sep, 2017 Encounter for well woman exam with routine gynecological exam Z01.419 ; Screening for STDs (sexually transmitted diseases) Z11.3 ; Screening breast examination Z12.31 and Overweight (BMI 25.0-29.9) E66.3 [place] [address] [place] [id number] Sep, [facility], [place] [address] [place] [id number] [place] [address] 53449- 8493 Sep, [facility], [place] [address] [place] [id number] [place] [address] 929626- 9304 Sep, [facility], [place] [address] [place] [id number] [place] [address] 369339- 1379 August, [facility], [place] [address] [place] [id number] [place] [address] 362475- 5688 August, [facility], [place] [address] [place] [id number] [place] [address] 360371- 5660 August, Type 2 diabetes mellitus with diabetic neuropathy, without long-term current use of insulin E11.40 and Sprain of right ankle, unspecified ligament, initial encounter S93.401A [facility], [place] [address] [place] [id number] [place] [address] 53322- 8303 August, [facility], [place] [address] [place] [id number] [place] [address] 54098- 0797 August, [facility], [place] [address] [place] [id number] [place] [address] 53658- 0341 August, [facility], [place] [id number] [place] [address] 13352- 3225 August, Gastroesophageal reflux disease, esophagitis presence not specified K21.9 [facility], [place] [address] [address]26 August, [facility], [place] [address] [address] [address]348 August, [facility], [place] [address] [address] August, [facility], [place] [address] [address] August, Type 2 diabetes mellitus with diabetic neuropathy, without long-term current use of insulin E11.40 and Elevated liver enzymes R74.8 [facility], [place] [address] [place] [id number] [place] [address] 59029- 4671 Jul, [facility], [place] [address] 08034- 0356 Jul, Cough R05 [facility], [place] [address] 48443- 4029 Jul, [facility], [place] [address] 42284- 6638 Jul, [facility], [place] [address] 36584- 3180 Jul, Bipolar affective disorder, currently depressed, moderate F31.32 ; Vascular dementia without behavioral disturbance F01.50 and Generalized anxiety disorder F41.1 [place] [address] 33291- 7569 Jul, [place] [address] 63470- 9646 Jul, Type 2 diabetes mellitus with diabetic neuropathy, without long-term current use of insulin E11.40 and Elevated liver enzymes R74.8 [place] [address] [place] [id number] [place] [address] 87006- 1321 Jul, [place] [address] [place] [id number] [place] [address] 45307- 8979 Jul, [place] [address] [place] [id number] [place] [address] 12083- 6977 Jul, [place] [address] [place] [id number] [place] [address] 55821- 6015 Jul, Post-menopausal Z78.0 [place] [address] [place] [id number] [place] [address] 28947- 1272 Jul, Stress incontinence of urine N39.3 [place] [address] [place] [id number] [place] [address] 11016- 9942 Jul, [facility], [place] [address] [place] [id number] [place] [address] 43212- 9762 Jul, [facility], [place] [address] 39020- 8278 Jul, Stress incontinence of urine N39.3 and Cough R05 [facility], [place] [address] [place] [id number] [place] [address] 71678- 9315 Jul, [facility], [place] [address] [place] [id number] [place] [address] 44450- 8211 Jul, [facility] [place] [address] [place] [id number] [place] [address] 76164- 8835 Jul, [place] [address] [place] [id number] [place] [address] 02225- 1922 Jul, Gastroesophageal reflux disease, esophagitis presence not specified K21.9 [place] [address] [place] [id number] [place] [address] 82622- 4954 Jun, Diabetic polyneuropathy associated with type 2 diabetes mellitus E11.42 [place] [address] [place] [id number] [place] [address] 55429- 6201 Jun, Diabetic polyneuropathy associated with type 2 diabetes mellitus E11.42 ; 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 I25.118 and Paroxysmal atrial fibrillation I48.0 [place] [address] [place] [id number] [place] [address] 19698- 4606 Jun, [facility], [place] [address] [place] [id number] [place] [address] 10048- 5499 Jun, [facility], [place] [address] [place] [id number] [place] [address] 46516- 5808 Jun, Gastroenteritis K52.9 [facility], [place] [address] [place] [id number] [place] [address] 77519- 2203 Jun, Gastroenteritis K52.9 [facility], [place] [address] [place] [id number] [place] [address] 20227- 2361 Jun, [facility], [place] [address], [place] [address]- 8938 Jun, [place] [address] [place] [id number] [place] [address] 39284- 4317 Jun, Sprain of right ankle, unspecified ligament, initial encounter S93.401A ; Type 2 diabetes mellitus with diabetic neuropathy, without long-term current use of insulin E11.40 ; 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 ; 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 ; Chronic atrial fibrillation I48.2 and Crohn''s disease without complication, unspecified gastrointestinal tract location K50.90 [facility] [id number] [place] [address] 69361 -8861 17 Jun, 2017 Cough R05 and Chronic obstructive pulmonary disease with acute lower respiratory infection J44.0 [place] [address] [place] [id number] [place] [address] 67823- 6595 16 Jun, 2017 [place] [address] [place] [id number] [place] [address] 19512- 5817 15 Jun, 2017 Coughing R05 ; Unspecified atherosclerosis of pamunkey arteries of extremities, unspecified extremity I70.209 ; Type 2 diabetes mellitus with diabetic peripheral angiopathy without gangrene E11.51 ; Crohn''s disease without complication, unspecified gastrointestinal tract location K50.90 ; Other chronic pancreatitis K86.1 and Chronic atrial fibrillation I48.2 [facility] [id number] [place] [address] 75692 -3286 Jun, [facility], [place] [id number] [place] [address] 70081- 7148 Jun, Bipolar affective disorder, currently depressed, moderate F31.32 ; Vascular dementia without behavioral disturbance F01.50 and Generalized anxiety disorder F41.1 [place] [id number] [place] [address] 22820- 5794 May, Generalized anxiety disorder F41.1 [place] [id number] [place] [address] 34617- 3318 May, [facility], [place] [address] [place] [id number] [place] [address] 69992- 0932 May, [facility], [place] [address] [place] [id number] [place] [address] 66733- 8497 May, Coughing R05 [place] [address] 95948- 0788 May, [place] [address] [place] [id number] [place] [address] 46676- 7222 May, Bipolar affective disorder, currently depressed, moderate F31.32 ; Vascular dementia without behavioral disturbance F01.50 and Generalized anxiety disorder F41.1 [place] [address] [place] [id number] [place] [address] 35768- 3740 Apr, Generalized anxiety disorder F41.1 [place] [address] [place] [id number] [place] [address] 10421- 2643 Apr, [place] [address] [place] [id number] [place] [address] 83434- 1046 Apr, Vascular dementia without behavioral disturbance F01.50 ; Generalized anxiety disorder F41.1 and Bipolar affective disorder, currently depressed, moderate F31.32 [place] [address] [place] [id number] [place] [address] 48277- 4641 Apr, Generalized anxiety disorder F41.1 [facility] [address] [place] [id number] [place] [address] 97842 -1599 Apr, Cough R05 and Acute exacerbation of chronic obstructive pulmonary disease (COPD) J44.1 [place] [address] [place] [id number] [place] [address] 18076- 0600 Apr, [facility] [address] [place] [id number] [place] [address] 44824 -6312 Mar, Cough R05 and Cigarette nicotine dependence without complication F17.210 [place] [address] [place] [id number] [place] [address] 32143- 1311 Mar, [place] [address] [place] [id number] [place] [address] 00298- 4482 Feb, Generalized anxiety disorder F41.1 ; Major depressive disorder, recurrent episode, moderate F33.1 ; Vascular dementia without behavioral disturbance F01.50 and Unspecified psychosis F29 [place] [address] [place] [id number] [place] [address] 51440- 5269 Feb, [place] [address] [place] [id number] [place] [address] 13815- 3118 Feb, [place] [address] [place] [id number] [place] [address] 30883- 6961 Feb, Generalized anxiety disorder F41.1 [place] [address] [place] [id number] [place] [address] 45156- 7344 Feb, Generalized anxiety disorder F41.1 [place] [address] [place] [id number] [place] [address] 12930- 3800 Feb, Dizziness R42 ; Chronic fatigue R53.82 ; Postconcussion syndrome F07.81 ; Fall, initial encounter W19.XXXA and Disorientation R41.0 [place] [address] [place] [id number] [place] [address] 87687- 8909 Feb, Postconcussion syndrome F07.81 ; Injury of head, initial encounter S09.90XA ; Fall, initial encounter W19.XXXA ; Disorientation R41.0 and Acute cystitis with hematuria N30.01 [place] [id number] [place] [address] 88165- 6593 Jan, Gastroesophageal reflux disease, esophagitis presence not specified K21.9 ; Post-menopausal Z78.0 and Migraine without aura and without status migrainosus, not intractable G43.009 [place] [address] [place] [id number] [place] [address] 78317- 2887 Jan, [place] [address] [place] [address] [address]- 7962 Jan, Generalized anxiety disorder F41.1 ; Major depressive disorder, recurrent episode, moderate F33.1 ; Vascular dementia without behavioral disturbance F01.50 and Unspecified psychosis F29 [facility] [place] [address] [place] [id number] [place] [address] 32448- 0467 Jan, Pneumonia of left lower lobe due to infectious organism J18.1 [facility], [place] [address] 17970- 6324 Jan, Migraine without aura and with status migrainosus, not intractable G43.001 [facility] [address] 56005 -6067 Jan, Migraine without aura and without status migrainosus, not intractable G43.009 [facility] [place] [address] [place] [id number] [place] [address] 82925- 7979 Dec, Hematoma T14.8 [facility], [place] [address] 01234- 3292 Dec, [facility] [address] 30518 -9291 Nov, Fatigue, unspecified type R53.83 [facility] [place] [address] [place] [id number] [place] [address] 19101- 7495 Nov, Scabies B86 and 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 I25.118 [facility] [place] [address] [place] [id number] [place] [address] 65353- 4436 Nov, [place] [address] 83498- 0742 Nov, [facility] [place] [address] [place] [id number] [place] [address] 03815- 5487 Oct, [facility] [place] [address] [place] [id number] [place] [address] 12820- 8188 Oct, Generalized anxiety disorder F41.1 and Major depressive disorder, recurrent episode, moderate F33.1 [facility] [place] [address] [place] [id number] [place] [address] 26460- 2950 19 Oct, 2016 Cramp of both lower extremities R25.2 [facility] [place] [address] [place] [id number] [place] [address] 05077- 8886 18 Oct, 2016 Leg cramps R25.2 [facility] [place] [address] [place] [id number] [place] [address] 35622- 6048 Oct, Chronic pain syndrome G89.4 [facility] [place] [address] [place] [id number] [place] [address] 54666- 5919 17 Oct, 2016 [place] [address] [place] [id number] [place] [address] 15807- 5100 Oct, [place] [address] [place] [id number] [place] [address] 69415- 1414 Oct, Routine gynecological examination Z01.419 and Screening for breast cancer Z12.31 [place] [address] [place] [id number] [place] [address] 33173- 7810 Sep, Diarrhea R19.7 [place] [address] [place] [id number] [place] [address] 71751- 0164 Sep, Back pain M54.9 [place] [address] [place] [id number] [place] [address] 40001- 7453 Sep, [facility] [place] [address] [place] [id number] [place] [address] 93390- 0778 Sep, [facility] [address] [place] [id number] [place] [address] 60796 -5557 August, Xeroderma Q80.9 [facility] [place] [address] [place] [id number] [place] [address] 50204- 4934 August, Dementia without behavioral disturbance, unspecified dementia type F03.90 [facility] [place] [address] [place] [id number] [place] [address] 23947- 9850 August, Chronic pain syndrome G89.4 [place] [address] [place] [id number] [place] [address] 59343- 0846 August, [place] [address] 57660- 6153 August, Hyperlipidemia E78.5 ; Other fatigue R53.83 and Other specified hypotension I95.89 [facility] [address] 36422 -5166 August, Dysuria R30.0 ; Other fatigue R53.83 and Other specified hypotension I95.89 [place] [address] 39829- 5364 August, [place] [address] 01556- 0844 Jul, Pain in left knee M25.562 and Gastroenteritis K52.9 [place] [address] 74159- 5226 Jul, [place] [address] 95063- 5492 Jul, Diarrhea R19.7 [facility] [place] [address] 81211 -6030 Jul, Spider bite, accidental or unintentional, initial encounter T63.301A [place] [address] 02538- 6868 Jul, Primary osteoarthritis of right knee M17.11 and Arthritis M19.90 [place] [address] [place] [id number] [place] [address] 67070- 9862 Jul, Generalized anxiety disorder F41.1 and Major depressive disorder, recurrent episode, moderate F33.1 [place] [address] 79703- 8128 07 Jul, 2016 Type 2 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 and Temporal headache R51 [place] [address] [place] [id number] [place] [address] 14047- 5306 06 Jul, 2016 Back pain M54.9 [facility] [place] [address] 51955- 6091 05 Jul, 2016 [facility] [place] [address] [place] [id number] [place] [address] 84475- 2012 Jul, [facility] [place] [address] 72167- 5420 30 Jun, 2016 Nausea R11.0 [facility] [address] 73360 -8753 Jun, Acute suppurative otitis media of both ears without spontaneous rupture of tympanic membranes, recurrence not specified H66.003 and COPD exacerbation J44.1 [place] [address] [place] [id number] [place] [address] 14835- 4503 Jun, Generalized anxiety disorder F41.1 [facility] [place] [address] [phone] 16 Jun, 2016 [facility] [address] [phone] Jun, [facility] [id number] [place] [phone] Jun, Shortness of breath R06.02 and COPD exacerbation J44.1 [place] [id number] [place] [address] 10 Jun, 2016 Eczema, unspecified type L30.9 [facility], [place] [id number] [place] [address] 09 Jun, 2016 [place] [address] [address] 24 May, 2016 [facility] [place] [id number] [place] [address] May, Muscle cramping R25.2 [place] [id number] [place] [phone] May, [facility] [facility] [place] [address] [address]- [address] Apr, Diarrhea R19.7 [facility] [place] [id number] [place] [address] 69464- 8290 Apr, [facility] [place] [address] 48916- 7339 Apr, Chronic pain syndrome G89.4 [place] [id number] [place] [address] 48841- 2393 Apr, Cramp of both lower extremities R25.2 and Vascular dementia without behavioral disturbance F01.50 [place] [id number] [place] [address] 60521- 0122 Apr, Type 2 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 and Cigarette nicotine dependence without complication F17.210 [place] [id number] [place] [address] 05986- 9137 Mar, Generalized anxiety disorder F41.1 [place] [id number] [place] [address] 82653- 3626 Feb, Generalized anxiety disorder F41.1 and Major depressive disorder, recurrent episode, moderate F33.1 [place] [id number] [place] [address] 30901- 7171 Feb, [facility] [id number] [place] [address] 93091 -9839 Feb, Dysuria R30.0 and Acute cystitis with hematuria N30.01 [facility] [place] [id number] [place] [address] 51046- 9793 Jan, [facility] [place] [id number] [place] [address] 05603- 0949 Jan, [facility] [place] [address] 80096- 7734 Jan, [facility] [place] [id number] [address] 5498 Jan, [facility] [id number] [place] [address] 36967 -8400 10 Jan, 2016 Wasp sting, accidental or unintentional, initial encounter T63.461A [facility] [place] [id number] [place] [address] 03320- 7705 06 Jan, 2016 Encounter for immunization Z23 [facility] [place] [id number] [place] [address] 45920- 2538 Jan, [facility] [place] [id number] [place] [address] 24517- 7376 Jan, [facility] [place] [id number] [place] [address] 94814- 9596 28 Dec, 2015 Generalized anxiety disorder F41.1 and Major depressive disorder, recurrent episode, moderate F33.1 [facility] [place] [id number] [place] [address] 38015- 5178 21 Dec, 2015 Routine gynecological examination Z01.419 ; Postmenopausal Z78.0 ; Screening breast examination Z12.39 ; Osteopenia M85.80 and Breast cancer screening Z12.39 [facility] [place] [id number] [place] [address] 77128- 6189 20 Dec, 2015 [facility] [place] [id number] [place] [address] 93792- 9688 19 Dec, 2015 [facility] [place] [id number] [place] [address] 47041- 4114 16 Dec, 2015 [facility] [place] [id number] [place] [address] 03234- 1795 16 Dec, 2015 [facility] [place] [id number] [place] [address] 83719- 1437 14 Dec, 2015 [facility] [place] [id number] [place] [address] 59395- 7793 Dec, [facility] [place] [id number], [place] [address]- 4198 Nov, [facility] [id number], [place] [address] Nov, Cough R05 ; Other viral agents as the cause of diseases classified elsewhere B97.89 and Acute upper respiratory infection, unspecified J06.9 [facility] [place] [id number], [place] [address] 1999 Nov, [facility] [place] [id number], [place] [address]- 8908 Nov, [facility] [place] [id number] [place] [address] 43225- 6545 Nov, [facility] [place] [id number] [place] [address] 93372- 4834 Nov, [facility] [place] [id number] [place] [address] 37223- 0550 Nov, [facility] [place] [id number], [place] [address]- 2034 Oct, [facility] [place] [id number], [place] [address]- 0869 Oct, [facility] [place] [id number], [place] [address]- 2120 Oct, [facility] [place] [id number], [place] [address]- 4948 Oct, Chronic pain syndrome G89.4 [facility] [place] [id number] [place] [address] 48393- 9403 Sep, Generalized anxiety disorder F41.1 and Major depressive disorder, recurrent episode, moderate F33.1 [facility] [place] [id number], [place] [address]- 5328 Sep, [facility] [place] [id number] [place] [address] 90739- 2215 20 Sep, 2015 [place] [id number] [place] [address] 35199- 8610 14 Sep, 2015 Generalized anxiety disorder F41.1 [place] [id number] [place] [address] 64463- 3510 13 Sep, 2015 Cramp of both lower extremities R25.2 and Cervicalgia M54.2 [place] [id number] [place] [address] 19144- 5687 06 Sep, 2015 Generalized anxiety disorder F41.1 [place] [id number] [place] [address] 06088- 8173 Sep, [facility] [place] [id number] [place] [address] 70825 -0326 August, Rash R21 ; Itching L29.9 and Allergic response, subsequent encounter T78.40XD [place] [id number] [place] [address] 17194- 0800 August, Primary insomnia F51.01 [facility] [place] [id number] [place] [address] 72465 -6571 August, Rash R21 ; Itching L29.9 and Allergic response, initial encounter T78.40XA [place] [id number] [place] [address] 21673- 2442 August, [place] [id number] [place] [address] 70677- 9722 August, Cramp of both lower extremities R25.2 [place] [id number] [place] [address] 31012- 1078 August, Back pain M54.9 [place] [id number] [place] [address] 47634- 8317 August, [place] [id number] [place] [address] 31183- 2942 August, [facility] [id number], [place] [address]8478 August, Cramp of both lower extremities R25.2 [facility] [place] [id number] [address]- 9819 August, [facility] [place] [id number], [place] [address]- 2797 August, Syncope R55 ; Paroxysmal atrial fibrillation I48.0 ; Dementia without behavioral disturbance, unspecified dementia type F03.90 and Chronic pain syndrome G89.4 [facility] [place] [id number] [place] [address] 86286- 4965 August, Type 2 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 and Syncope R55 [facility] [place] [id number], [place] [address]- 1473 Jul, [facility] [place] [id number] [place] [address] 80889- 7782 Jul, [facility] [place] [id number], [place] [address]- 4948 Jul, [facility] [place] [id number] [place] [address] 79370- 3337 Jul, [facility] [place] [id number], [place] [address]- 7958 Jul, [facility] [place] [id number], [place] [address]- 7944 Jul, UTI (urinary tract infection) N39.0 [facility] [place] [id number], [place] [address]- 9871 Jul, [facility] [place] [id number] [place] [address] 90624- 7141 Jul, Major depressive disorder, recurrent episode, moderate F33.1 and Generalized anxiety disorder F41.1 [facility] [place] [id number], [place] [address]- 4301 Jul, Generalized anxiety disorder F41.1 [facility] [place] [id number], [place] [address]- 3325 14 Jul, 2015 Diarrhea R19.7 [facility] [place] [id number], [place] [address]- 7490 Jul, [facility] [place] [id number] [place] [address] 84971- 5384 Jun, [facility] [place] [id number] [place] [address] 45059- 0873 Jun, Eczema L30.9 [facility] [place] [id number] [place] [address] 51627- 0991 Jun, [facility] [place] [id number] [place] [address] 68487- 7240 Jun, COPD (chronic obstructive pulmonary disease) J44.9 [facility] [place] [id number] [place] [address] 28940- 0333 Jun, [facility] [place] [id number] [place] [address] 79357- 6651 Jun, Major depressive disorder, recurrent episode, moderate F33.1 and Generalized anxiety disorder F41.1 [facility] [place] [id number], [place] [address]- 6927 May, [facility] [place] [id number], [place] [address]- 6013 May, UTI (urinary tract infection) N39.0 [facility] [place] [id number], [place] [address]- 5328 17 May, 2015 [facility] [place] [id number], [place] [address]- 2964 May, [facility] [place] [id number], [place] [address]- 3893 May, [facility] [place] [id number] [place] [address] 52848- 7782 May, [facility] [place] [id number], [place] [address]- 8731 Apr, Major depressive disorder, recurrent episode, moderate F33.1 and Generalized anxiety disorder F41.1 [facility] [place] [id number], [place] [address]- 5436 Apr, COPD (chronic obstructive pulmonary disease) J44.9 [facility] [place] [id number] [place] [address] 90264- 1144 Apr, [facility] [place] [id number] [place] [address] 18202- 8260 Apr, Atrial flutter I48.92 [facility] [place] [id number] [place] [address] 81572- 8518 Apr, [facility] [place] [id number] [place] [address] 24458- 8873 Apr, [facility] [place] [id number] [place] [address] 97064- 2693 Mar, [facility] [place] [id number] [place] [address] 64731- 2515 Mar, [facility] [place] [id number], [place] [address]- 2038 Mar, [facility] [place] [id number] [place] [address] 79430- 2931 Mar, Hyperlipidemia E78.5 ; Type 2 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 ; Major depressive disorder, recurrent episode, moderate F33.1 and Chronic pain syndrome G89.4 [facility] [place] [id number] 6149 Mar, [facility] [place] [id number], [place] [address]- 2354 Mar, [facility] [place] [id number] [place] [address] 88695- 6011 Mar, [facility] [place] [id number] [place] [address] 04612- 4809 Mar, [facility] [place] [id number] [place] [address] 71171- 8698 Feb, COPD (chronic obstructive pulmonary disease) J44.9 and Back pain M54.9 [facility] [place] [id number] [place] [address] 46373- 6019 Feb, [facility] [place] [id number] [place] [address] 48415- 3999 Feb, [facility] [place] [id number] [place] [address] 77545- 9652 Feb, [facility] [place] [id number] [place] [address] 34398- 2577 Feb, [facility] [place] [id number] [place] [address] 72919- 9028 Feb, [facility] [place] [id number] [place] [address] 66103- 5466 Feb, [facility] [place] [id number] [place] [address] 40384- 0270 Feb, [facility] [place] [id number] [place] [address] 63892- 4086 Feb, [facility] [place] [id number] [place] [address] 94546- 2954 Feb, Diabetes E11.9 ; Back pain M54.9 and COPD (chronic obstructive pulmonary disease) J44.9 [facility] [place] [id number] [place] [address] 15509- 2762 Jan, [facility] [place] [id number] [place] [address] 49549- 6143 Jan, Major depression, recurrent F33.9 and Generalized anxiety disorder F41.1 [facility] [place] [id number] [place] [address] 98973- 7088 Jan, Chronic pain G89.29 [facility] [place] [id number] [place] [address] 25608- 2663 Jan, [facility] [place] [id number] [place] [address] 40344- 7823 Jan, [facility] [place] [id number] [place] [address] 53998- 6423 Jan, [facility] [place] [id number] [place] [address] 15256- 7794 Jan, [facility] [place] [id number] [place] [address] 21856- 2349 Jan, Nicotine dependence F17.200 [facility] [place] [id number] [place] [address] 45496- 4515 Jan, Nicotine dependence F17.200 and Back pain M54.9 [facility] [place] [id number] [place] [address] 10882- 6407 Jan, [facility] [place] [id number] [place] [address] 90837- 3719 28 Dec, 2014 [facility] [place] [id number] [place] [address] 53137- 1120 25 Sep, 2014 Anxiety, generalized 300.02 and Major depression, recurrent 296.30 [facility] [place] [id number] [place] [address] 10875- 6954 24 Sep, 2014 [facility] [place] [id number] [place] [address] 14727- 5936 21 Sep, 2014 [facility] [place] [id number] [place] [address] 65631- 6704 17 Sep, 2014 [facility] [place] [id number] [place] [address] 32589- 5603 15 Sep, 2014 [facility] [place] [id number] [place] [address] 53711- 5787 14 Sep, 2014 [facility] [place] [id number], [place] [address]- 7945 Dec, [facility] [place] [id number] [place] [address] 25082- 6185 Dec, [facility] [place] [id number], [place] [address]- 6362 08 Dec, 2014 Skin tear 879.8 [facility] [place] [id number] [place] [address] 72606- 7248 08 Dec, 2014 Routine gynecological examination V72.31 ; Breast cancer screening V76.10 and Family history of breast cancer in first degree relative V16.3 [facility] [place] [id number] [place] [address] 15355- 8377 Dec, [facility] [place] [id number] [place] [address] 20515- 8206 Dec, [facility] [place] [id number] [place] [address] 37723- 8101 Nov, [facility] [place] [id number] [place] [address] 30184- 8327 Nov, [facility] [place] [id number] [place] [address] 15461- 3457 Nov, Poor balance 781.99 and Vascular dementia, uncomplicated 290.40 [facility] [place] [id number] [place] [address] 43622- 2577 Nov, [facility] [place] [id number] [place] [address] 96428- 9472 Nov, Major depression, recurrent 296.30 and Anxiety, generalized 300.02 [facility] [place] [id number] [place] [address] 44001- 5703 Nov, [facility] [place] [id number] [place] [address] 45777- 2905 Nov, [facility] [place] [id number] [place] [address] 62180- 3926 Nov, [facility] [place] [id number] [address] Nov, [facility], [place] [id number] [place] [address] 27615- 1697 Nov, Vascular dementia, uncomplicated 290.40 and Lumbago 724.2 [facility], [place] [id number] [place] [address] 67208- 8632 Nov, [facility], [place] [id number] [place] [address] 16416- 0247 Nov, [facility], [place] [id number] [place] [address] 13113- 4882 Nov, [facility], [place] [id number] [place] [address] 48130- 3284 Oct, [facility], [place] [id number] [place] [address] 83246- 0318 Oct, [facility], [place] [id number], [place] [address] Oct, [facility], [place] [id number] [place] [address] 19266- 7139 Oct, COPD (chronic obstructive pulmonary disease) 496 and Hyperlipidemia 272.4 [facility], [place] [id number], [place] [address] 9[address] Oct, Major depression, recurrent 296.30 and Anxiety, generalized 300.02 [facility], [place] [id number], [place] [address] 9419 Oct, [facility], [place] [id number] [place] [address] 9406 Oct, [facility], [place] [id number] [address] 0552 Oct, [facility], [place] [id number] [address]284 Sep, Lumbago 724.2 and Anxiety state, unspecified 300.00 [facility], [place] [id number] [address] 7830 Sep, [facility], [place] [id number] [place] [address] 26943- 9273 Sep, [facility], [place] [id number] [address] 2508 August, [facility], [place] [id number] [place] [address] 93406- 6000 August, Major depression, recurrent 296.30 ; Anxiety, generalized 300.02 and No condition on [place] V71.09 [facility], [place] [id number] [place] [address] 64446- 3618 August, [facility], [place] [id number] [address] 4864 August, [facility], [place] [id number] [address] 1672 Jul, [facility], [place] [id number] [place] [address] 4378 Jul, [facility], [place] [id number] [address] 7922 Jul, [facility], [place] [id number], [place] [address]- 1257 Jun, [facility], [place] [id number], [place] [address]- 1060 Jun, [facility] [id number], [place] [address] 2687 Jun, [facility], [place] [id number], [place] [address]- 9532 Jun, [facility], [place] [id number], [place] [address]- 8965 Jun, [facility], [place] [id number] [address]- 2527 23 Jun, 2014 [facility] [place] [facility] [address] [id number] [place] [address]- 4959 23 Jun, 2014 [facility] [place] [facility] [address] [id number] [place] [address]- 6436 17 Jun, 2014 [facility] [place] [facility] [address] [id number] [place] [address]- 8636 13 Jun, 2014 [facility] [place] [facility] [address] [id number] [place] [address]- 1872 13 Jun, 2014 [facility] [place] [facility] [address] [id number] [place] [address]- 0530 10 Jun, 2014 [facility] [place] [facility] [address] [facility] [id number] [place] [address]- 6627 10 Jun, 2014 [facility] [place] [facility] [address] [facility] [id number] [place] [address]- 3754 07 Jun, 2014 [facility] [place] [facility] [address] [facility] [id number] [place] [address]- 6760 07 Jun, 2014 [facility] [place] [facility] [address] [id number] [place] [address]26 02 Jun, 2014 [facility] [place] [facility] [address] [facility] [id number] [place] [address] Jun, 2014 [facility] [place] [facility] [address] [id number] [place] [address] 3931 May, 2014 [facility] [place] [facility] [address] [facility] [id number] [place] [address]- 9060 May, 2014 [facility] [place] [facility] [address] [id number] [place] [address] 3730 May, 2014 [facility] [place] [facility] [address] [facility] [id number] [place] [address]- 2376 May, 2014 [facility] [place] [facility] [address] [facility] [id number] [place] [address] May, 2014 [facility] [place] [facility] [address] [id number] [place] [address]- 9390 May, 2014 [facility] [place] [facility] [address] [id number] [place] [address] 1997 May, 2014 [facility] [place] [facility] [address] [facility] [id number] [place] [address]- 0777 May, 2014 [facility] [place] [facility] [address] [id number] [place] [address]- 1858 May, 2014 [facility] [place] [facility] [address] [id number] [place] [address]- 9654 May, 2014 [facility] [place] [facility] [address] [id number] [place] [address]- 2093 May, 2014 [facility] [place] [facility] [address] [id number] [place] [address] 0639 May, 2014 [facility] [place] [facility] [address] [id number] [place] [address]- 9654 May, 2014 [facility] [place] [facility] [address] [id number] [place] [address]- 4026 May, [facility] [place] [facility] [address] [facility] [id number] [place] [address]- 4090 Apr, [facility] [place] [facility] [address] [id number] [place] [address]- 5401 Apr, [facility] [place] [facility] [address] [id number] [place] [address]- 5165 Apr, [facility] [place] [facility] [address] [id number] [place] [address]- 1783 Apr, [facility] [place] [facility] [address] [id number] [place] [address]- 5234 Apr, [facility] [place] [facility] [address] [facility] [id number] [place] [address]- 5744 Apr, [facility] [place] [facility] [address] [id number] [place] [address]- 0302 Apr, [facility] [address] [id number] [place] [address]- 2576 Apr, [facility] [place] [facility] [address] [id number] [place] [address]- 7971 Apr, [facility] [place] [facility] [address] [id number] [place] [address]- 1630 Apr, [facility] [place] [facility] [address] [id number] [place] [address]- 2057 Apr, [facility] [place] [facility] [address] [id number] [place] [address]- 4873 Apr, [facility] [place] [facility] [address] [id number] [place] [address]- 8915 Mar, [facility] [place] [facility] [address] [id number] [place] [address]- 8915 31 Mar, 2014 [facility] [place] [facility] [address] [id number] [place] [address]- 2248 30 Mar, 2014 [facility] [place] [facility] [address] [id number] [place] [address]- 1165 30 Mar, 2014 [facility] [place] [facility] [address] [id number] [place] [address]- 1594 29 Mar, 2014 [facility] [place] [facility] [address] [id number] [place] [address]- 8413 29 Mar, 2014 [facility] [place] [facility] [address] [id number] [place] [address]- 1325 Mar, [facility] [place] [facility] [address] [id number] [place] [address] 1007 Mar, [facility] [place] [facility] [address] [id number] [place] [address]- 3946 15 Mar, 2014 [facility] [place] [facility] [address] [id number] [place] [address]- 3632 Mar, [facility] [place] [facility] [address] [id number] [place] [address]- 6070 15 Mar, 2014 [facility] [place] [facility] [address] [id number] [place] [address]- 8002 Mar, [facility] [place] [facility] [address] [id number] [place] [address]- 5583 Mar, [facility] [place] [facility] [address] [id number] [place] [address]- 5445 Mar, [facility] [place] [facility] [address] [id number] [place] [address]- 2008 Mar, [facility] [place] [facility] [address] [id number] [place] [address]- 4278 Mar, [facility] [place] [facility] [address] [id number] [place] [address]- 7305 Mar, [facility] [place] [facility] [address] [id number] [place] [address]- 3228 Mar, [facility] [place] [facility] [address] [id number] [place] [address]- 6650 Mar, [facility] [place] [facility] [address] [id number] [place] [address]- 5002 Mar, [facility] [place] [facility] [address] [id number] [place] [address]- 4600 Feb, [facility] [place] [facility] [address] [id number], [place] [address] 9401 Feb, [facility] [place] [facility] [address] [id number] [place] [address]- 0604 Feb, [facility] [place] [facility] [address] [id number] [place] [address]- 9144 Feb, [facility] [place] [facility] [address] [id number] [place] [address]- 9763 Feb, [facility] [place] [facility] [address] [id number] [place] [address]- 5467 Feb, [facility] [place] [facility] [address] [id number] [place] [address]- 2452 Feb, [facility] [place] [facility] [address] [id number] [place] [address]- 0080 Feb, [facility] [place] [facility] [address] [id number] [place] [address]- 8137 Feb, [facility] [place] [facility] [address] [id number] [place] [address]- 0279 Feb, [facility] [place] [facility] [address] [id number] [place] [address]- 7833 Feb, [facility] [place] [facility] [address] [id number] [place] [address]- 3003 Feb, [facility] [place] [facility] [address] [id number] [place] [address]- 1621 Feb, [facility] [place] [facility] [address] [id number] [place] [address]- 7446 Feb, [facility] [place] [facility] [address] [id number] [place] [address]- 1630 Feb, [facility] [place] [facility] [address] [facility] [id number] [place] [address]- 8565 Feb, [facility] [place] [facility] [address] [id number] [place] [address]- 9869 Feb, [facility] [place] [facility] [address] [id number], [place] [address]- 1499 Jan, [facility] [place] [facility] [address] [id number] [place] [address]- 5154 Jan, [facility] [place] [facility] [address] [id number] [place] [address]- 5048 Jan, [facility] [place] [facility] [address] [id number], [place] [address]- 6924 Jan, [facility] [place] [facility] [address] [id number] [place] [address]- 3299 Jan, [facility] [place] [facility] [address] [id number] [place] [address]- 1201 Jan, [facility] [place] [facility] [address] [id number] [place] [address]- 0736 Jan, [facility] [place] [facility] [address] [id number] [place] [address]- 4532 Jan, [facility] [place] [facility] [address] [id number] [place] [address]- 8896 Jan, [facility] [place] [facility] [address] [id number] [place] [address]- 8215 Jan, [facility] [place] [facility] [address] [id number] [place] [address]- 3319 Jan, [facility] [place] [facility] [address] [id number] [place] [address]- 6724 Dec, [facility] [place] [facility] [address] [id number] [place] [address]- 0270 Dec, [facility] [place] [facility] [address] [id number] [place] [address]- 2686 Nov, [facility] [place] [facility] [address] [id number] [place] [address]- 2261 Nov, [facility] [place] [facility] [address] [id number] [place] [address]- 4922 Nov, [facility] [place] [facility] [address] [id number] [place] [address]- 9754 Nov, [facility] [place] [facility] [address] [id number] [place] [address]- 5959 Nov, [facility] [place] [facility] [address] [id number] [place] [address]- 6231 Nov, [facility] [place] [facility] [address] [id number] [place] [address]- 9215 Nov, [facility] [place] [facility] [address] [id number] [place] [address]- 2324 Oct, [facility] [place] [facility] [address] [id number] [place] [address]- 6428 Oct, [facility] [place] [facility] [address] [id number] [place] [address]- 2165 Oct, [facility] [place] [facility] [address] [id number] [place] [address]- 7466 Oct, [facility] [place] [facility] [address] [id number] [place] [address]- 7358 Sep, [facility] [place] [facility] [address] [id number] [place] [address]- 6598 Sep, [facility] [place] [facility] [address] [id number] [place] [address]- 9153 Sep, [facility] [place] [facility] [address] [id number] [place] [address]- 8029 Sep, [facility] [place] [facility] [address] [id number] [place] [address]- 3425 Sep, [facility] [place] [facility] [address] [id number] [place] [address]- 9768 Sep, [facility] [place] [facility] [address] [id number] [place] [address]- 5569 Sep, [facility] [place] [facility] [address] [id number] [place] [address]- 7197 Sep, [facility] [place] [facility] [address] [id number] [place] [address]- 3536 Sep, [facility] [place] [facility] [address] [id number] [place] [address]- 0054 Sep, [facility] [place] [facility] [address] [id number] [place] [address]- 6676 Sep, [facility] [place] [facility] [address] [id number] [place] [address]- 4052 Sep, [facility] [address] [id number] [place] [address]- 4636 Sep, [facility] [address] [id number] [place] [address]- 6087 Sep, [facility] [address] [id number] [place] [address]- 9886 August, [facility] [address] [id number] [place] [address]- 8420 August, [facility] [address] [id number] [place] [address]- 1185 August, [facility] [address] [id number] [place] [address]- 7448 August, [facility] [address] [id number] [place] [address]- 5156 August, [facility] [address] [id number] [place] [address]- 6591 August, [facility] [address] [id number] [place] [address]- 2068 August, [facility] [address] [id number] [place] [address]- 8955 August, [facility] [address] [id number] [place] [address]- 0574 August, [facility] [address] [id number] [place] [address]- 9626 August, [facility] [place] [facility] [address] [id number] [place] [address]- 6455 August, [facility] [address] [id number] [place] [address]- 2389 August, [facility] [address] [id number] [place] [address]- 0979 August, [facility] [address] [id number] [place] [address]- 2862 August, [facility] [place] [facility] [address] [id number] [place] [address] August, [facility] [place] [facility] [address] [id number] [place] [address]- 8930 August, [facility] [place] [facility] [address] [id number] [place] [address]- 1936 August, [facility] [place] [facility] [address] [id number] [place] [address]- 9085 August, [facility] [place] [facility] [address] [id number] [place] [address]- 9348 August, [facility] [place] [facility] [address] [id number] [place] [address]- 5867 Jul, [facility] [place] [facility] [address] [id number] [place] [address]- 6280 Jul, [facility] [place] [facility] [address] [id number] [place] [address]- 9747 Jul, [facility] [place] [facility] [address] [id number] [place] [address]- 7556 Jul, [facility] [place] [facility] [address] [id number] [place] [address]- 9500 Jun, [facility] [place] [facility] [address] [id number] [place] [address]- 8118 Jun, [facility] [place] [facility] [address] [id number] [place] [address]- 8381 Jun, [facility] [place] [facility] [address] [id number] [place]90 Jun, [facility] [place] [facility] [address] [id number] [place] [address]- 3492 Jun, [facility] [place] [facility] [address] [id number] [place] [address]- 3352 17 Jun, 2013 [facility] [place] [facility] [address] [id number] [place] [address]- 5544 14 Jun, 2013 [facility] [place] [facility] [address] [id number] [place] [address]- 2197 14 Jun, 2013 [facility] [place] [facility] [address] [facility] [id number] [place] [address]- 1886 06 Jun, 2013 [facility] [place] [facility] [address] [id number] [place] [address]- 5741 06 Jun, 2013 [facility] [place] [facility] [address] [id number] [place] [address]- 1840 May, [facility] [place] [facility] [address] [facility] [id number] [place] [address]- 3107 May, [facility] [place] [facility] [address] [facility] [id number] [place] [address]- 6572 May, [facility] [place] [facility] [address] [facility] [id number] [place] [address]- 4955 May, [facility] [place] [facility] [address] [facility] [id number] [place] [address]- 6731 May, [facility] [place] [facility] [address] [facility] [id number] [place] [address]- 7248 May, [facility] [place] [facility] [address] [facility] [id number] [place] [address]- 9877 20 May, 2013 [facility] [place] [facility] [address] [facility] [id number] [place] [address]- 3102 May, [facility] [place] [facility] [address] [facility] [id number] [place] [address]- 2552 May, [facility] [place] [facility] [address] [facility] [id number] [place] [address]- 2662 18 May, 2013 [facility] [place] [facility] [address] [facility] [id number] [place] [address]- 4682 18 May, 2013 [facility] [place] [facility] [address] [id number] [place] [address]- 0082 17 May, 2013 [facility] [place] [facility] [address] [id number] [place] [address]- 3251 May, [facility] [place] [facility] [address] [id number] [place]77 May, [facility] [place] [facility] [address] [id number] [place] [address]- 6215 May, [facility] [place] [facility] [address] [id number] [place] [address]- 1874 May, [facility] [place] [facility] [address] [id number] [place] [address]- 0238 May, [facility] [place] [facility] [address] [id number] [place] [address]- 1188 Apr, [facility] [place] [facility] [address] [id number] [place] [address]- 5135 Apr, [facility] [place] [facility] [address] [id number] [place] [address]- 3157 Apr, [facility] [place] [facility] [address] [facility] [id number] [place] [address]- 7894 Apr, [facility] [place] [facility] [address] [id number] [place] [address]- 1337 Apr, [facility] [place] [facility] [address] [id number] [place] [address]- 6444 Apr, [facility] [place] [facility] [address] [id number] [place] [address]- 2350 Apr, [facility] [place] [facility] [address] [facility] [id number] [place] [address]- 8500 Mar, [facility] [place] [facility] [address] [id number] [place] [address]- 9646 Mar, [facility] [place] [facility] [address] [id number] [place] [address]- 1342 Mar, [facility] [address] [id number] [place] [address]- 4321 Mar, [facility] [address] [id number] [place] [address]- 9976 Mar, [facility] [address] [id number] [place] [address]- 4946 Mar, [facility] [address] [id number] [place] [address]- 5522 Mar, [facility] [address] [id number] [place] [address]- 5911 Mar, [facility] [address] [id number] [place] Mar, [facility] [address] [id number] [place] [address]- 4064 Mar, [facility] [address] [id number] [place] [address]- 8787 Mar, [facility] [address] [id number] [place] [address]- 7718 Feb, [facility] [address] [id number] [place] [address]- 7361 Feb, [facility] [address] [id number] [place] [address]- 1161 Feb, [facility] [address] [id number] [place] [address]- 9106 Feb, [facility] [address] [id number] [place] [address]- 6476 Feb, [facility] [address] [id number] [place] [address]- 0632 Feb, [facility] [address] [id number] [place] [address]- 6434 15 Feb, 2013 [facility] [place] [facility] [address] [id number] [place] [address]- 2045 14 Feb, 2013 [facility] [place] [facility] [address] [id number] [place] [address]- 0294 14 Feb, 2013 [facility] [place] [facility] [address] [id number] [place] [address]- 1485 13 Feb, 2013 [facility] [place] [facility] [address] [id number] [place] [address]- 1376 13 Feb, 2013 [facility] [place] [facility] [address] [id number] [place] [address]- 6835 Feb, [facility] [place] [facility] [address] [id number] [place] [address]- 7873 Feb, [facility] [place] [facility] [address] [id number] [place] [address]- 6267 Feb, [facility] [place] [facility] [address] [id number], [place] [address]- 6494 Feb, [facility] [place] [facility] [address] [id number] [place] [address]- 9344 Feb, [facility] [place] [facility] [address] [id number], [place] [address]- 2958 Jan, [facility] [place] [facility] [address] [id number], [place] [address]- 8628 Jan, [facility] [place] [facility] [address] [id number], [place] [address]- 0119 Jan, [facility] [place] [facility] [address] [id number], [place] [address]- 1895 Jan, [facility] [place] [facility] [address] [id number], [place] [address]- 8040 Jan, [facility] [place] [facility] [address] [id number], [place] [address]- 8622 Jan, [facility] [place] [facility] [address] [id number], [place] [address] Jan, [facility] [place] [facility] [address] [id number] [place] [address] Jan, [facility] [place] [facility] [address] [id number] [place] [address] 10 Jan, 2013 [facility] [place] [facility] [address] [id number] [place] [address] 27 Dec, 2012 [facility] [place] [facility] [address] [id number] [place] [address] 20 Dec, 2012 [facility] [place] [facility] [address] [id number] [place] [address]- [address] 19 Dec, 2012 [facility] [place] [facility] [address] [id number] [place] [address]- [address]7 10 Dec, 2012 [facility] [place] [facility] [address] [id number] [place] [address]- [address] 04 Dec, 2012 [facility] [place] [facility] [address] [id number] [place] [address]- [address] Dec, [facility] [place] [facility] [address] [id number] [place] [address] Nov, [facility] [place] [facility] [address] [id number] [place] [address]- [address] Nov, [facility] [place] [facility] [address] [id number] [place] [address]- [address] Nov, [facility] [place] [facility] [address] [id number] [place] [address]- [address] Nov, [facility] [place] [facility] [address] [id number] [place] [address] Nov, [facility] [place] [facility] [address] [id number] [place] [address]- [address] Nov, [facility] [place] [facility] [address] [id number] [place] [address]- [address] 15 Nov, 2012 [facility] [place] [facility] [address] [id number] [place] [address]- [address] 15 Nov, 2012 [facility] [place] [facility] [address] [id number] [place] [address]- [address] Nov, [facility] [place] [facility] [address] [id number] [place] [address]- [address] Nov, [facility] [place] [facility] [address] [id number] [place] [address] Oct, [facility] [place] [facility] [address] [id number] [place] [address] 47[address] Oct, [facility] [place] [facility] [address] [id number] [place] [address]- [address] Oct, [facility] [place] [facility] [address] [id number] [place] [address] Oct, [facility] [place] [facility] [address] [id number] [place] [address] Oct, [facility] [place] [facility] [address] [id number] [place] [address]- [address] Oct, [facility] [place] [facility] [address] [id number] [place] [address]- [address] Oct, [facility] [place] [facility] [address] [id number] [place] [address] Oct, [facility] [place] [facility] [address] [id number] [place] [address]- 97[address] Sep, [facility] [place] [facility] [address] [id number] [place] [address]- [address] Sep, [facility] [place] [facility] [address] [id number] [place] [address]- 1883 Sep, [facility] [place] [facility] [address] [id number] [place] [address]- 8038 Sep, [facility] [place] [facility] [address] [id number] [place] [address]- [address] Sep, [facility] [address] [id number] [place] [address]- [address] Sep, [facility] [place] [facility] [address] [id number] [place] [address]- 9[address] Sep, [facility] [place] [facility] [address] [id number] [place] [address]- [address] Sep, [facility] [place] [facility] [address] [id number] [place] [address]- [address]184 August, [facility] [address] [id number] [place] [address]- [address] August, [facility] [address] [id number] [place] [address]- 16[address] August, [facility] [address] [id number] [place] [address]- 8465 August, [facility] [address] [id number] [place] [address]- [address] August, [facility] [place] [facility] [address] [id number] [place] [address] Jul, [facility] [place] [facility] [address] [id number] [place] [address]- [address] Jul, [facility] [place] [facility] [address] [id number] [place] [address]- [address] Jul, [facility] [place] [facility] [address] [id number], [place] [address] Jul, [facility] [place] [facility] [address] [id number] [place] [address]- [address] Jul, [facility] [place] [facility] [address] [id number] [place] [address]- [address] Jun, [facility] [place] [facility] [address] [id number] [place] [address]- 0767 Jun, [facility] [place] [facility] [address] [id number] [place] [address]- [address] 15 Jun, 2012 [facility] [address] [id number] [place] [address]- [address] 14 Jun, 2012 [facility] [address] [id number] [place] [address]- 227[address] Jun, [facility] [address] [id number] [place] [address]- [address] 08 Jun, 2012 [facility] [address] [id number] [place] [address]- 6[address] 08 Jun, 2012 [facility] [address] [id number] [place] [address]- [address]363 02 Jun, 2012 [facility] [address] [id number] [place] [address]- [address]642 Jun, [facility] [address] [id number] [place] [address]- [address] 27 May, 2012 [facility] [address] [id number] [place] [address]- [address] 25 May, 2012 [facility] [address] [id number] [place] [address]- 39[address] May, [facility] [address] [id number] [place] [address] May, [facility] [address] [id number] [place] [address] Apr, [facility] [address] [id number] [place] [address]- [address] Apr, [facility] [place] [facility] [address] [id number] [place] [address]- 0873 Apr, [facility] [place] [facility] [address] [id number] [place] [address]- 0936 Apr, [facility] [place] [facility] [address] [id number] [place] [address]- [address] Apr, [facility] [facility], [place] [address] [id number] [place] [address] Apr, [facility] [address] [id number] [place] [address] Apr, [facility], [place] [address] [id number] [place] [address] Mar, [facility] [address] [place] [id number] Mar, [facility], [place] [address] [id number] [place] [address] Mar, [facility] [address] [id number] [place] [address] Mar, [facility], [place] [address] [id number] [place] [address] Mar, [facility] [place] [address] [id number] [place] [address] Mar, [facility] [address] [id number] [place] [address] 8460 Mar, [facility] [address] [id number] [place] [address] Mar, [facility] [address] [id number] [place] [address] 4676 Mar, [facility] [address] [id number] [place] [address] 5[address] Mar, [facility] [address] [id number] [place] [address] Mar, [facility] [address] [id number] [place] [address] 0976 Mar, [facility] [address] [id number] [place] [address]- [address] Mar, [facility] [address] [id number] [place] [address] Mar, [facility] [place] [facility] [address] [id number] [place] [address] Mar, [facility] [place] [facility] [address] [id number] [place] [address] Mar, [facility] [place] [facility] [address] [id number] [place] [address]- 1797 Mar, [facility] [place] [facility] [address] [id number] [place] [address] 27[address] Feb, [facility] [place] [facility] [address] [id number] [place] [address] 43[address] Feb, [facility] [place] [facility] [address] [id number] [place] [address]- 43[address] Feb, [facility] [place] [facility] [address] [id number] [place] [address]- 1079 Feb, [facility] [place] [facility] [address] [id number] [place] [address]- 4428 Feb, [facility] [place] [facility] [address] [id number] [place] [address]- 1082 Feb, [facility] [place] [facility] [address] [id number] [place] [address]- 2626 Feb, [facility] [place] [facility] [address] [id number], [place] [address] Feb, [facility] [place] [facility] [address] [id number], [place] [address] Feb, [facility] [place] [facility] [address] [id number] [place] [address]- 9115 Feb, [facility] [place] [facility] [address] [id number], [place] [address]- 1740 Feb, [facility] [place] [facility] [address] [id number], [place] [address]- [address] Feb, [facility] [place] [facility] [address] [id number] [place] [address] 08 Feb, 2012 [facility] [place] [facility] [address] [id number] [place] [address] Feb, [facility] [place] [facility] [address] [id number] [place] [address] Feb, [facility] [place] [facility] [address] [id number] [place] [address]- 5005 Feb, [facility] [place] [facility] [address] [id number] [place] [address]- 5[address] Jan, [facility] [place] [facility] [address] [id number] [place] [address] Jan, [facility] [place] [facility] [address] [id number] [place] [address]- 5080 Jan, [facility] [place] [facility] [address] [facility] [id number] [place] [address]- 18[address] Jan, [facility] [place] [facility] [address] [id number] [place] [address]- 0091 Jan, [facility] [place] [facility] [address] [facility] [id number] [place] [address]- 8926 Jan, [facility] [place] [facility] [address] [facility] [id number] [place] [address]- 2203 Jan, [facility] [place] [facility] [address] [id number] [place] [address]- 4244 Jan, [facility] [place] [facility] [address] [facility] [id number], [place] [address]- 04[address] Jan, [facility] [place] [facility] [address] [id number] [place] [address]- 9202 Jan, [facility] [place] [facility] [address] [facility] [id number] [place] [address]- 9476 Jan, [facility] [place] [facility] [address] [id number] [address] Jan, [facility] [place] [facility] [address] [id number] [place] [address]- 3821 Jan, [facility] [place] [facility] [address] [id number] [place] [address]- 5143 Jan, [facility] [place] [facility] [address] [id number] [place] [address]- 2422 08 Jan, 2012 [facility] [place] [facility] [address] [id number] [place] [address]- [address]300 05 Jan, 2012 [facility] [place] [facility] [address] [id number] [place] [address]- 9509 04 Jan, 2012 [facility] [place] [facility] [address] [id number] [place] [address]- 7390 21 Dec, 2011 [facility] [place] [facility] [address] [id number] [place] [address]- 3774 20 Dec, 2011 [facility] [place] [facility] [address] [id number] [place] [address]- 4874 18 Dec, 2011 [facility] [place] [facility] [address] [id number] [place] [address]- 4003 18 Dec, 2011 [facility] [place] [facility] [address] [id number] [place] [address]- 5621 10 Dec, 2011 [facility] [place] [facility] [address] [id number] [place] [address]- 4639 10 Dec, 2011 [facility] [place] [facility] [address] [id number] [place] [address]- 3584 10 Dec, 2011 [facility] [place] [facility] [address] [id number] [place] [address]- 9158 07 Dec, 2011 [facility] [place] [facility] [address] [id number] [place] [address]- 4143 30 Nov, 2011 [facility] [place] [facility] [address] [id number] [place] [address]- 2289 25 Nov, 2011 [facility] [place] [facility] [address] [id number] [place] [address]- [address]572 Nov, [facility] [place] [facility] [address] [id number] [place] [address]- 5046 Nov, [facility] [place] [facility] [address] [id number] [place] [address]- 4536 Nov, [facility] [place] [facility] [address] [id number] [place] [address] 2546 Nov, [facility] [place] [facility] [address] [id number] [place] [address] 2541 Oct, [facility] [place] [facility] [address] [id number] [place] [address]- 3888 Oct, [facility] [place] [facility] [address] [id number] [place] [address]- 3071 Oct, [facility] [place] [facility] [address] [id number] [place] [address]- 2740 Oct, [facility] [place] [facility] [address] [id number] [place] [address]- 0986 Oct, [facility] [place] [facility] [address] [id number] [place] [address]- 2557 Oct, [facility] [place] [facility] [address] [id number] [place] [address]- 4394 Oct, [facility] [place] [facility] [address] [id number] [place] [address]- 1091 Sep, [facility] [place] [facility] [address] [id number] [place] [address]- 6863 Sep, [facility] [place] [facility] [address] [id number] [place] [address]- 6906 Sep, [facility] [place] [facility] [address] [id number] [place] [address]- 5112 Sep, [facility] [place] [facility] [address] [id number] [place] [address]- 4825 Sep, [facility] [place] [facility] [address] [id number] [place] [address]- 1989 15 Sep, 2011 [facility] [address] [id number] [place] [address]- 3827 14 Sep, 2011 [facility] [address] [id number] [place] [address]- 9655 11 Sep, 2011 [facility] [address] [id number] [place] [address]- 9208 05 Sep, 2011 [facility] [address] [id number] [place] [address]- 5585 04 Sep, 2011 [facility] [address] [id number] [place] [address]- 9460 August, [facility] [address] [id number] [place] [address]- 1768 August, [facility] [address] [id number] [place] [address]- 5071 August, [facility] [address] [id number] [place] [address]- 1522 August, [facility] [address] [id number] [place] [address]- 2264 August, [facility] [address] [id number] [place] [address]- 1009 Jul, [facility] [address] [id number] [place] [address]- 1242 Jul, [facility] [address] [id number] [place] [address]- 5291 25 Jul, 2011 [facility] [place] [facility] [address] [id number] [place] [address]- 0541 17 Jul, 2011 [facility] [address] [id number] [place] [address]- 4641 Jul, [facility] [address] [id number] [place] [address]- 7926 Jul, [facility] [place] [facility] [address] [id number] [place] [address]- 4205 Jul, [facility] [place] [facility] [address] [id number] [place] [address]- 2986 Jun, [facility] [place] [facility] [address] [id number] [place] [address] Jun, [facility] [place] [facility] [address] [id number] [place] [address]- 1380 Jun, [facility] [place] [facility] [address] [id number] [place] [address]- 4526 Jun, [facility] [place] [facility] [address] [id number] [place] [address]- 1466 Jun, [facility] [place] [facility] [address] [id number] [place] [address]- 7332 May, [facility] [place] [facility] [address] [id number] [place] [address]- 7651 May, [facility] [place] [facility] [address] [id number] [place] [address]- 1657 May, [facility] [place] [facility] [address] [id number] [place] [address]- 7605 May, [facility] [place] [facility] [address] [id number] [place] [address]- 1291 May, [facility] [place] [facility] [address] [id number] [place] [address]- 7424 May, [facility] [place] [facility] [address] [id number] [place] [address]- 0096 Apr, [facility] [place] [facility] [address] [id number] [place] [address]- 1126 Mar, [facility] [place] [facility] [address] [id number] [place] [address]- 2926 Feb, [facility] [place] [facility] [address] [id number] [place] [address]- 6077 07 Feb, 2011 [facility] [address] [id number] [place] [address]- 7271 Feb, [facility] [place] [facility] [address] [id number] [place] [address] 02 Feb, 2011 [facility] [address] [id number] [place] [address]- 3811 31 Jan, 2011 [facility] [place] [facility] [address] [id number] [place] [address]- 6423 27 Jan, 2011 [facility] [address] [id number] [place] [address], [place] [address]- 5485 26 Jan, 2011 [facility] [address] [id number] [place] [address]- 5294 24 Jan, 2011 [facility] [address] [id number] [place] [address]- 9025 14 Jan, 2011 [facility] [address] [id number] [place] [address]- 3856 Dec, [facility] [address] [id number] [place] [address]- 1757 Oct, [facility] [address] [id number] [place] [address]- 4924 August, [facility] [address] [id number] [place] [address]- 9366 29 Mar, 2010 [facility] [address] [id number] [place] [address]- 3667 27 Mar, 2010 [facility] [place] [facility] [address] [id number] [place] [address]- 3608 16 Mar, 2010 [facility] [place] [facility] [address] [id number] [place] [address]- 2547 15 Mar, 2010 [facility] [place] [facility] [address] [id number] [place] [address]- 2677 15 Mar, 2010 [facility] [place] [facility] [address] [id number] [place] [address]- 0545 08 Mar, 2010 [facility] [place] [facility] [address] [id number] [place] [address]- 4866 Mar, [facility] [place] [facility] [address] [id number] [place] [address]- 7741 Feb, [facility] [place] [facility] [address] [id number] [place] [address]- 4649 Feb, [facility] [place] [facility] [address] [id number] [place] [address]- 8638 15 Feb, 2010 [facility] [place] [facility] [address] [id number] [place] [address]- 1288 Jan, [facility] [place] [facility] [address] [id number] [place] [address]- 6234 Jan, [facility] [place] [facility] [address] [id number] [place] [address]- 1985 Jan, [facility] [place] [facility] [address] [id number] [place] [address]- 6413 Nov, [facility] [place] [facility] [address] [id number] [place] [address]- 9330 Sep, [facility] [place] [facility] [address] [id number] [place] [address]- 6526 August, [facility] [place] [facility] [address] [id number], [place] [address]- 0204 30 Mar, 2009 [facility] [place] [facility] [address] [id number] [place] [address]- 3628 07 Mar, 2009 [facility] [place] [facility] [address] [id number], [place] [address]- 8950 17 Feb, 2009 [facility] [place] [facility] [address] [id number], [place] [address]- 8770 10 Feb, 2009 [facility] [place] [facility] [address] [id number], [place] [address]- 6744 Feb, [facility] [place] [id number], [place] [address]- 5916 Feb, [facility] [place] [id number], [place] [address]- 1423 Feb, [facility] [place] [id number], [place] [address]- 8771 Jan, [facility] [place] [id number] [place] [address]- 8859 Jan, [facility] [place] [id number] [place] [address]- 6970 Jan, [facility] [place] [id number] [place] [address]- 3200 Jan, [facility] [place] [id number] [place] [address]- 1139 Nov, [facility] [place] [id number], [place] [address]- 6227 Sep, [facility] [place] [id number] [place] [address]- 7513 August, [facility] [place] [id number], [place] [address]- 6845 Jul, [facility] [place] [id number], [place] [address]- 7102 May, IMMUNIZATIONS No Known Immunizations SOCIAL HISTORY Never Assessed REASON FOR VISIT medication refill PLAN OF CARE VITAL SIGNS MEDICATIONS Medication Instructions Dosage Frequency Start Date End Date Duration Status Neurontin 400 mg Orally Three times a day 1 capsule 8h August, 30 day(s) Active RESULTS No Results PROCEDURES [...] Knee Surgery 07/16/17 Hospitalization History [facility] [place]- left hand/wrist swelling 10/09/2017
--- OUTSIDE RECORDS SUMMARY | 2018-01-01 11:34 | XMS REPORT ---
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 Active 23513227 Problem Colon polyp K63.5 Active 27308572 Problem Screening breast examination Z12.39 Active 047968414 Problem Bilateral low back pain without sciatica M54.5 Active 376558306 Problem Postmenopausal Z78.0 Active 06782906 Problem Essential tremor G25.0 Active 14853507 Problem Osteopenia M85.80 Active 248653513 Problem Hyperlipidemia E78.5 Active 00376842 Problem Cigarette nicotine dependence without complication F17.210 Active 09378764 Problem Vascular dementia without behavioral disturbance F01.50 Active [id number] Problem Arthritis M19.90 Active 0310502 Problem Chronic atrial fibrillation I48.2 Active 767009251 Problem Dementia without behavioral disturbance, unspecified dementia type F03.90 Active 47102940 Problem Other chronic pancreatitis K86.1 Active 524976421 Problem Xeroderma Q80.9 Active 32964246 Problem Chronic obstructive pulmonary disease with acute lower respiratory infection J44.0 Active 363348106 Problem Type 2 diabetes mellitus with diabetic neuropathy, without long-term current use of insulin E11.40 Active 32244329 Problem Atherosclerosis of ute artery of both lower extremities with intermittent claudication I70.213 Active 617674772145415 Problem Hammertoe of right foot M20.41 Active 831515942 Problem Hammertoe of left foot M20.42 Active 473641322 Problem Migraine without aura and with status migrainosus, not intractable G43.001 Active 630621995 Problem Migraine without aura and without status migrainosus, not intractable G43.009 Active 951227764 Problem Major depressive disorder, recurrent episode, moderate F33.1 Active 665929858 Problem Unspecified psychosis F29 Active 13740727 Problem Cervicalgia M54.2 Active 8156843176085 Problem Diabetic polyneuropathy associated with type 2 diabetes mellitus E11.42 Active 31898534 Problem COPD (chronic obstructive pulmonary disease) J44.9 Active 57954658 Problem 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 Active 1953547432140 Problem Gastroparesis K31.84 Active 758064282 Problem Stress incontinence of urine N39.3 Active 79994267 Problem Osteoporosis M81.0 Active 14755971 Problem Controlled type 2 diabetes mellitus without complication, without long -term current use of insulin E11.9 Active 647313237 Problem Barretts esophagus K22.70 Active 008184057 Problem Chronic fatigue R53.82 Active 38560192 Problem History of common bile duct surgery Z98.89 Active 122232609 Problem Bipolar affective disorder, currently depressed, moderate F31.32 Active 948418754 Problem Generalized anxiety disorder F41.1 Active 944547116 Problem Gastroesophageal reflux disease, esophagitis presence not specified K21.9 Active 137227897 Problem Coronary artery disease involving ute coronary artery of ute 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 I25.118 Active 8901822748986 Problem Postconcussion syndrome F07.81 Active 30484430 Problem Chronic pain syndrome G89.4 Active 660814761 Problem Type 2 diabetes mellitus with diabetic peripheral angiopathy without gangrene E11.51 Active 972209721 Problem Paroxysmal atrial fibrillation I48.0 Active 161636033 Problem Unspecified atherosclerosis of ute arteries of extremities, unspecified extremity I70.209 Active 635905096089924 Problem Acute exacerbation of chronic obstructive pulmonary disease (COPD) J44.1 Active 467387222 Problem Crohn''s disease without complication, unspecified gastrointestinal tract location K50.90 Active 37846133 ALLERGIES No Information ENCOUNTERS Encounter Location Date Diagnosis [facility] [address] [facility] [id number] [address] [address] Feb, [facility] [address] [facility] [id number] [address] [address] Nov, Onychomycosis B35.1 ; Hammertoe of left foot M20.42 ; Hammertoe of right foot M20.41 and Type 2 diabetes mellitus with diabetic neuropathy, without long-term current use of insulin E11.40 [place] [address] [place] [id number] [place] [address] 60686- 4871 Nov, [place] [address] [place] [id number] [place] [address] 90851- 1609 Nov, Bronchitis J40 [place] [address] [place] [id number] [place] [address] 88145- 1432 Oct, [place] [address] 30499- 6737 Oct, Bipolar affective disorder, currently depressed, moderate F31.32 ; Vascular dementia without behavioral disturbance F01.50 and Generalized anxiety disorder F41.1 [place] [address] [place] [id number] [place] [address] 28241- 2326 Oct, [place] [address] 91052- 9701 Oct, [place] [address] [place] [id number] [place] [address] 26374- 9947 Oct, Edema of both legs R60.0 [place] [id number] [place] [address] 58137- 5325 Oct, [place] [address] [place] [id number] [place] [address] 02830- 9272 Sep, [place] [address] [place] [id number] [place] [address] 37975- 3799 Sep, [place] [address] [place] [id number] [place] [address] 74325- 0072 Sep, [place] [address] [place] [id number] [place] [address] 27861- 7143 18 Sep, 2017 Encounter for well woman exam with routine gynecological exam Z01.419 ; Screening for STDs (sexually transmitted diseases) Z11.3 ; Screening breast examination Z12.31 and Overweight (BMI 25.0-29.9) E66.3 [place] [address] [place] [address] [address] Sep, [facility] [address] [address] Sep, [facility] [address] [address] [address] Sep, [facility] [address] [address]80 August, [facility] [address] [address] 0328 August, [facility] [address] [place] [address] 917457- 5469 August, Type 2 diabetes mellitus with diabetic neuropathy, without long-term current use of insulin E11.40 and Sprain of right ankle, unspecified ligament, initial encounter S93.401A [facility] [address] [id number] [address] 1227 August, [facility] [address] [address] 5780 August, [facility] [address] [address] 8034 August, [facility] [address] [address] 8628 August, Gastroesophageal reflux disease, esophagitis presence not specified K21.9 [facility] [address] [address] 5597 August, [facility] [address] [address] 4581 August, [facility] [address] August, [facility] [address] [place] [id number] [address] [address]10 August, Type 2 diabetes mellitus with diabetic neuropathy, without long-term current use of insulin E11.40 and Elevated liver enzymes R74.8 [facility] [id number] [place] [address] 22704- 2310 Jul, [facility] [address] [id number] [place] [address] 33017- 8489 Jul, Cough R05 [facility] [address] [place] [address] [id number] [place] [address] 90093- 5740 Jul, [facility] [address] [place] [id number] [place] [address] 10954- 2668 Jul, [place] [address] [place] [id number] [place] [address] 77589- 6238 Jul, Bipolar affective disorder, currently depressed, moderate F31.32 ; Vascular dementia without behavioral disturbance F01.50 and Generalized anxiety disorder F41.1 [place] [address] [place] [id number] [place] [address] 05791- 2753 Jul, [place] [address] [place] [id number] [place] [address] 31617- 0372 Jul, Type 2 diabetes mellitus with diabetic neuropathy, without long-term current use of insulin E11.40 and Elevated liver enzymes R74.8 [place] [address] [place] [id number] [place] [address] 45116- 4413 Jul, [place] [address] [place] [id number] [place] [address] 84948- 8606 Jul, [place] [address] [place] [id number] [place] [address] 39724- 3902 Jul, [place] [address] [place] [id number] [place] [address] 54120- 1868 Jul, Post-menopausal Z78.0 [place] [address] [place] [id number] [place] [address] 10100- 1509 Jul, Stress incontinence of urine N39.3 [place] [address] [place] [id number] [place] [address] 76001- 7301 Jul, [facility] [address] [id number] [place] [address] 41028- 1452 Jul, [facility] [address] [id number] [place] [address] 46332- 8042 Jul, Stress incontinence of urine N39.3 and Cough R05 [facility] [address] [place] [address] [id number] [place] [address] 63429- 3256 Jul, [facility] [address] [id number] [place] [address] 96681- 4949 Jul, [facility] [address] [place] [address] [id number] [place] [address] 96547- 6627 Jul, [facility] [address] [place] [address] [id number] [place] [address] 49634- 8235 Jul, Gastroesophageal reflux disease, esophagitis presence not specified K21.9 [facility] [address] [place] [address] [id number] [place] [address] 69120- 1911 Jun, Diabetic polyneuropathy associated with type 2 diabetes mellitus E11.42 [place] [address] [address] [id number] [place] [address] 03448- 2994 Jun, Diabetic polyneuropathy associated with type 2 diabetes mellitus E11.42 ; Coronary artery disease involving ute coronary artery of ute 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 I25.118 and Paroxysmal atrial fibrillation I48.0 [facility] [address] [place] [address] [id number] [place] [address] 64113- 9914 Jun, [facility] [address] [place] [address] [id number] [place] [address] 75865- 5550 Jun, [facility] [address] [place] [address] [id number] [place] [address] 74436- 0209 Jun, Gastroenteritis K52.9 [facility] [address] [place] [id number] [place] [address] 14382- 1298 Jun, Gastroenteritis K52.9 [facility] [address] [place] [id number] [place] [address] 45887- 6899 Jun, [facility] [address] [address]- 9771 Jun, [place] [id number] [place] [address] 25905- 7508 Jun, Sprain of right ankle, unspecified ligament, initial encounter S93.401A ; Type 2 diabetes mellitus with diabetic neuropathy, without long-term current use of insulin E11.40 ; Atherosclerosis of ute artery of both lower extremities with intermittent claudication I70.213 ; 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 ; Chronic atrial fibrillation I48.2 and Crohn''s disease without complication, unspecified gastrointestinal tract location K50.90 [facility] [address], [place] [address] 17 Jun, 2017 Cough R05 and Chronic obstructive pulmonary disease with acute lower respiratory infection J44.0 [place] [address] [place] [id number] [place] [address] 69361- 9582 16 Jun, 2017 [place] [address] [place] [id number] [place] [address] 37354- 2010 15 Jun, 2017 Coughing R05 ; Unspecified atherosclerosis of ute arteries of extremities, unspecified extremity I70.209 ; Type 2 diabetes mellitus with diabetic peripheral angiopathy without gangrene E11.51 ; Crohn''s disease without complication, unspecified gastrointestinal tract location K50.90 ; Other chronic pancreatitis K86.1 and Chronic atrial fibrillation I48.2 [facility] [id number] [place] [address] 53935 -5005 Jun, [place] [address] [place] [id number] [place] [address] 94692- 7162 Jun, Bipolar affective disorder, currently depressed, moderate F31.32 ; Vascular dementia without behavioral disturbance F01.50 and Generalized anxiety disorder F41.1 [place] [id number] [place] [address] 88841- 4489 May, Generalized anxiety disorder F41.1 [place] [address] [address]- 6276 May, [facility] [address] [id number] [place] [address] 92804- 9010 May, [facility] [id number] [place] [address] 39310- 5716 May, Coughing R05 [facility] [address] [id number] [place] [address] 90007- 2973 May, [facility] [id number] [place] [address] 15860- 0100 May, Bipolar affective disorder, currently depressed, moderate F31.32 ; Vascular dementia without behavioral disturbance F01.50 and Generalized anxiety disorder F41.1 [place] [address] [id number] [place] [address] 17992- 2754 Apr, Generalized anxiety disorder F41.1 [place] [address] [place] [id number] [place] [address] 29326- 8201 Apr, [place] [address] [place] [id number] [place] [address] 33130- 4565 Apr, Vascular dementia without behavioral disturbance F01.50 ; Generalized anxiety disorder F41.1 and Bipolar affective disorder, currently depressed, moderate F31.32 [place] [id number] [place] [address] 11479- 8377 Apr, Generalized anxiety disorder F41.1 [facility] [id number] [place] [address] 75593 -9991 Apr, Cough R05 and Acute exacerbation of chronic obstructive pulmonary disease (COPD) J44.1 [place] [address] [place] [address] [id number] [place] [address] 97727- 1881 Apr, [facility] [id number] [place] [address] 20890 -6673 Mar, Cough R05 and Cigarette nicotine dependence without complication F17.210 [place] [address], [place] [address]- 2662 Mar, [place] [address] [place] [id number] [place] [address] 88108- 4155 Feb, Generalized anxiety disorder F41.1 ; Major depressive disorder, recurrent episode, moderate F33.1 ; Vascular dementia without behavioral disturbance F01.50 and Unspecified psychosis F29 [place] [address] [place] [id number] [place] [address] 35765- 6715 Feb, [place] [address] [place] [id number] [place] [address] 62633- 0470 Feb, [place] [address] [place] [id number] [place] [address] 37859- 0388 Feb, Generalized anxiety disorder F41.1 [place] [address] [place] [id number] [place] [address] 08825- 2401 Feb, Generalized anxiety disorder F41.1 [place] [address] [place] [id number] [place] [address] 44575- 4636 Feb, Dizziness R42 ; Chronic fatigue R53.82 ; Postconcussion syndrome F07.81 ; Fall, initial encounter W19.XXXA and Disorientation R41.0 [place] [address] [place] [address] 01369- 0210 Feb, Postconcussion syndrome F07.81 ; Injury of head, initial encounter S09.90XA ; Fall, initial encounter W19.XXXA ; Disorientation R41.0 and Acute cystitis with hematuria N30.01 [place] [address] [place] [address] 25395- 1901 Jan, Gastroesophageal reflux disease, esophagitis presence not specified K21.9 ; Post-menopausal Z78.0 and Migraine without aura and without status migrainosus, not intractable G43.009 [place] [address] [place] [address] 63012- 6070 Jan, [place] [address] [place] [id number] [place] [address] 76795- 6958 Jan, Generalized anxiety disorder F41.1 ; Major depressive disorder, recurrent episode, moderate F33.1 ; Vascular dementia without behavioral disturbance F01.50 and Unspecified psychosis F29 [facility] [id number] [place] [address] 09168- 9542 Jan, Pneumonia of left lower lobe due to infectious organism J18.1 [facility] [address] [id number] [place] [address] 51521- 7708 Jan, Migraine without aura and with status migrainosus, not intractable G43.001 [facility] [id number] [place] [address] 40972 -0563 Jan, Migraine without aura and without status migrainosus, not intractable G43.009 [place] [address] [address] [id number] [place] [address] 02464- 0402 Dec, Hematoma T14.8 [place] [address] [place] [id number] [place] [address] 96962- 8966 Dec, [facility] [id number] [place] [address] 22635 -6824 Nov, Fatigue, unspecified type R53.83 [place] [address] [address] [id number] [place] [address] 68373- 7638 Nov, Scabies B86 and Coronary artery disease involving ute coronary artery of ute 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 I25.118 [place] [address] [id number] [place] [address] 69884- 7989 Nov, [place] [address] 92807- 4940 Nov, [place] [address] [place] [id number] [place] [address] 69232- 3126 Oct, [place] [address] [place] [id number] [place] [address] 35562- 4989 Oct, Generalized anxiety disorder F41.1 and Major depressive disorder, recurrent episode, moderate F33.1 [facility] [id number] [place] [address] 62782- 9244 Oct, Cramp of both lower extremities R25.2 [facility] [id number] [place] [address] 19770- 7626 Oct, Leg cramps R25.2 [facility] [id number] [place] [address] 92130- 4937 Oct, Chronic pain syndrome G89.4 [place] [id number] [place] [address] 28482- 0969 Oct, [facility] [id number] [place] [address] 61959- 8678 Oct, [place] [address] [address] [id number] [place] [address] 82881- 2541 Oct, Routine gynecological examination Z01.419 and Screening for breast cancer Z12.31 [facility] [id number] [place] [address] 62766- 0869 Sep, Diarrhea R19.7 [facility] [id number] [place] [address] 61627- 8879 Sep, Back pain M54.9 [place] [id number] [place] [address] 37982- 6988 Sep, [facility] [id number] [place] [address] 44336- 7122 Sep, [facility] [id number] [place] [address] 34965 -7367 August, Xeroderma Q80.9 [facility] [id number] [place] [address] 51293- 5936 August, Dementia without behavioral disturbance, unspecified dementia type F03.90 [facility] [id number] [place] [address] 76481- 3682 August, Chronic pain syndrome G89.4 [place] [address] 20894- 0218 August, [place] [address] 97357- 6711 August, Hyperlipidemia E78.5 ; Other fatigue R53.83 and Other specified hypotension I95.89 [facility] [address] 04466 -8381 August, Dysuria R30.0 ; Other fatigue R53.83 and Other specified hypotension I95.89 [place] [address] 55525- 5652 August, [place] [address] 00659- 2744 Jul, Pain in left knee M25.562 and Gastroenteritis K52.9 [place] [address] 78482- 1356 Jul, [place] [address] 36525- 8795 Jul, Diarrhea R19.7 [facility] [place] [address] 83238 -0565 Jul, Spider bite, accidental or unintentional, initial encounter T63.301A [place] [address] 73760- 6243 Jul, Primary osteoarthritis of right knee M17.11 and Arthritis M19.90 [place] [address] 33726- 5045 Jul, Generalized anxiety disorder F41.1 and Major depressive disorder, recurrent episode, moderate F33.1 [place] [address] 02151- 5403 07 Jul, 2016 Type 2 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 and Temporal headache R51 [facility] [id number] [place] [address] 19185- 2092 06 Jul, 2016 Back pain M54.9 [facility] [address] 62047- 9022 Jul, [facility] [address] 06496- 1699 Jul, [facility] [address] 01832- 8218 30 Jun, 2016 Nausea R11.0 [facility] [address] 96391 -8976 Jun, Acute suppurative otitis media of both ears without spontaneous rupture of tympanic membranes, recurrence not specified H66.003 and COPD exacerbation J44.1 [place] [address] 11160- 9374 Jun, Generalized anxiety disorder F41.1 [place] [address] 30990- 5203 16 Jun, 2016 [facility] [address] 98416 -8081 Jun, [facility] [id number] [place] [address] 97994 -6029 Jun, Shortness of breath R06.02 and COPD exacerbation J44.1 [place] [address] 36449- 7123 10 Jun, 2016 Eczema, unspecified type L30.9 [place] [address] 37285- 4399 09 Jun, 2016 [place] [address] 22988- 6570 24 May, 2016 [facility] [address] 48971- 0866 May, Muscle cramping R25.2 [place] [address] [place] [id number] [place] [address] 39389- 1914 13 May, 2016 [facility] [address] 23262- 4221 Apr, Diarrhea R19.7 [facility] [address] [place] [id number] [place] [address] 44021- 9607 Apr, [facility] [address] 23409- 2038 Apr, Chronic pain syndrome G89.4 [place] [address] 43620- 1582 Apr, Cramp of both lower extremities R25.2 and Vascular dementia without behavioral disturbance F01.50 [place] [address] [place] [id number] [place] [address] 91192- 6482 Apr, Type 2 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 and Cigarette nicotine dependence without complication F17.210 [place] [address] [place] [id number] [place] [address] 35817- 8235 Mar, Generalized anxiety disorder F41.1 [place] [address] [place] [id number] [place] [address] 07996- 6861 Feb, Generalized anxiety disorder F41.1 and Major depressive disorder, recurrent episode, moderate F33.1 [facility] [address] [place] [id number] [place] [address] 98815- 8073 Feb, [facility] [address] [place] [id number] [place] [address] 55545 -8686 05 Feb, 2016 Dysuria R30.0 and Acute cystitis with hematuria N30.01 [facility] [address] [place] [id number] [place] [address] 67931- 1769 Jan, [facility] [address] [place] [id number] [place] [address] 17027- 0435 Jan, [facility] [address] [place] [id number] [place] [address] 50506- 0371 Jan, [facility] [address] [place] [id number] [place] [address] 45046- 1118 Jan, [facility] [address] [place] [id number] [place] [address] 16480 -0014 10 Jan, 2016 Wasp sting, accidental or unintentional, initial encounter T63.461A [facility] [address] 72553- 1475 Jan, Encounter for immunization Z23 [facility] [address] 97184- 7613 Jan, [facility] [address] 43885- 3608 Jan, [facility] [address] 74909- 7191 28 Dec, 2015 Generalized anxiety disorder F41.1 and Major depressive disorder, recurrent episode, moderate F33.1 [facility] [address] [place] [id number] [place] [address] 14790- 7431 21 Dec, 2015 Routine gynecological examination Z01.419 ; Postmenopausal Z78.0 ; Screening breast examination Z12.39 ; Osteopenia M85.80 and Breast cancer screening Z12.39 [facility] [address] [place] [id number] [place] [address] 00272- 9304 20 Dec, 2015 [facility] [address] [place] [id number] [place] [address] 37216- 8935 19 Dec, 2015 [facility] [address] [place] [id number] [place] [address] 33066- 2512 16 Dec, 2015 [facility] [address] 41998- 2990 16 Dec, 2015 [facility] [address] [place] [id number] [place] [address] 26816- 5466 14 Dec, 2015 [facility] [address] 24379- 3724 Dec, [facility] [address] [place] [id number] [address] 0954 Nov, [facility] [address] [place] [address] Nov, Cough R05 ; Other viral agents as the cause of diseases classified elsewhere B97.89 and Acute upper respiratory infection, unspecified J06.9 [facility] [address], [place] [address]- 2470 Nov, [facility] [address] [address]- 5587 Nov, [facility] [address] [place] [id number] [place] [address] 98953- 3091 Nov, [facility] [address] [place] [id number] [address]- 8137 Nov, [facility] [id number], [place] [address]- 1465 Nov, [facility] [address], [place] [address]- 3747 Oct, [facility] [address] [id number] [address]- 2577 Oct, [facility] [address], [place] [address]- 9811 Oct, [facility] [address] [place] [address]- 9306 Oct, Chronic pain syndrome G89.4 [facility] [address] [place] [id number] [place] [address] 10599- 6891 Sep, Generalized anxiety disorder F41.1 and Major depressive disorder, recurrent episode, moderate F33.1 [facility] [address], [place] [address]- 3812 Sep, [facility] [address] [place] [id number] [place] [address] 57298- 7542 20 Sep, 2015 [place] [address] [place] [id number] [place] [address] 79258- 5768 14 Sep, 2015 Generalized anxiety disorder F41.1 [place] [address] [place] [id number] [place] [address] 63898- 1762 13 Sep, 2015 Cramp of both lower extremities R25.2 and Cervicalgia M54.2 [place] [address] [place] [id number] [place] [address] 78552- 7532 06 Sep, 2015 Generalized anxiety disorder F41.1 [place] [address] [place] [id number] [place] [address] 24240- 6850 Sep, [facility] [place] [address] [place] [id number] [place] [address] 32024 -4389 August, Rash R21 ; Itching L29.9 and Allergic response, subsequent encounter T78.40XD [place] [address] [place] [id number] [place] [address] 42635- 6090 August, Primary insomnia F51.01 [facility] [place] [address] [place] [id number] [place] [address] 17810 -1109 August, Rash R21 ; Itching L29.9 and Allergic response, initial encounter T78.40XA [place] [address] [place] [id number] [place] [address] 53292- 0610 August, [place] [address] [place] [id number] [place] [address] 58561- 4550 August, Cramp of both lower extremities R25.2 [place] [address] [place] [id number] [place] [address] 84311- 6559 August, Back pain M54.9 [place] [address] [place] [id number] [place] [address] 07347- 5421 August, [place] [address] [place] [id number] [place] [address] 17465- 9428 August, [facility] [address], [place] [address] August, Cramp of both lower extremities R25.2 [facility] [address], [place] [address]- 6766 August, [facility] [address] [place] [id number] [address]- 1194 August, Syncope R55 ; Paroxysmal atrial fibrillation I48.0 ; Dementia without behavioral disturbance, unspecified dementia type F03.90 and Chronic pain syndrome G89.4 [facility] [address] [id number] [address]- 0370 August, Type 2 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 and Syncope R55 [facility] [address] [id number] [address]- 7940 Jul, [facility] [address] [place] [id number] [place] [address] 43614- 3322 Jul, [facility] [address], [place] [address]- 0092 Jul, [facility] [id number] [address]- 6347 Jul, [facility] [address], [place] [address]- 7990 Jul, [facility] [address], [place] [address]- 8275 Jul, UTI (urinary tract infection) N39.0 [facility] [address], [place] [address]- 0674 Jul, [facility] [address], [place] [address]- 3471 Jul, Major depressive disorder, recurrent episode, moderate F33.1 and Generalized anxiety disorder F41.1 [facility] [id number] [place] [address] 85395- 7026 Jul, Generalized anxiety disorder F41.1 [facility] [address], [place] [address]- 8692 14 Jul, 2015 Diarrhea R19.7 [facility] [id number] [place] [address] 82726- 8916 14 Jul, 2015 [facility] [id number] [place] [address] 70084- 4600 Jun, [facility] [address] [place] [id number] [place] [address] 81400- 5685 Jun, Eczema L30.9 [facility] [address] [place] [id number] [place] [address] 03258- 2560 Jun, [facility] [address] [place] [id number] [place] [address] 77687- 6730 Jun, COPD (chronic obstructive pulmonary disease) J44.9 [facility] [address] [place] [id number] [place] [address] 42401- 7716 Jun, [facility] [id number] [place] [address] 04417- 0494 Jun, Major depressive disorder, recurrent episode, moderate F33.1 and Generalized anxiety disorder F41.1 [facility] [address], [place] [address]- 2097 May, [facility] [id number], [place] [address]- 2243 May, UTI (urinary tract infection) N39.0 [facility] [address], [place] [address]- 4761 17 May, 2015 [facility] [address], [place] [address]- 0757 May, [facility] [address], [place] [address]- 8096 May, [facility] [address] [place] [id number] [place] [address] 92678- 4254 May, [facility] [id number] [place] [address] 58637- 6005 Apr, Major depressive disorder, recurrent episode, moderate F33.1 and Generalized anxiety disorder F41.1 [facility] [address] [place] [id number] [place] [address] 67099- 8439 Apr, COPD (chronic obstructive pulmonary disease) J44.9 [facility] [address] [place] [id number] [place] [address] 52598- 8054 Apr, [facility] [address] [place] [id number] [place] [address] 33625- 5657 Apr, Atrial flutter I48.92 [facility] [address] [place] [id number] [place] [address] 28783- 8486 Apr, [facility] [address] [place] [id number] [place] [address] 87663- 4165 Apr, [facility] [id number] [place] [address] 46119- 7246 Mar, [facility] [address] [place] [id number] [place] [address] 46813- 3125 Mar, [facility] [address] [id number] [place] [address] 35216- 5742 Mar, [facility] [address] [place] [id number] [place] [address] 26363- 1164 Mar, Hyperlipidemia E78.5 ; Type 2 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 ; Major depressive disorder, recurrent episode, moderate F33.1 and Chronic pain syndrome G89.4 [facility] [address] [id number] [place] [address] 48781- 1416 Mar, [facility] [address] [place] [id number] [place] [address] 27666- 8210 14 Mar, 2015 [facility] [address] [id number] [place] [address] 32095- 5224 Mar, [facility] [id number] [place] [address] 66072- 2446 Mar, [facility] [id number] [place] [address] 15709- 4771 Feb, COPD (chronic obstructive pulmonary disease) J44.9 and Back pain M54.9 [facility] [id number] [place] [address] 75476- 3351 Feb, [facility] [id number] [place] [address] 07652- 1499 Feb, [facility] [id number] [place] [address] 63061- 5872 Feb, [facility] [id number] [place] [address] 29575- 2597 Feb, [facility] [id number] [place] [address] 64362- 7647 Feb, [facility] [id number] [place] [address] 66015- 1719 Feb, [facility] [id number] [place] [address] 68841- 8177 Feb, [facility] [id number] [place] [address] 31033- 3154 Feb, [facility] [id number] [place] [address] 82103- 5117 Feb, Diabetes E11.9 ; Back pain M54.9 and COPD (chronic obstructive pulmonary disease) J44.9 [facility] [id number] [place] [address] 52859- 5076 Jan, [facility] [id number] [place] [address] 18157- 3462 Jan, Major depression, recurrent F33.9 and Generalized anxiety disorder F41.1 [facility] [id number] [place] [address] 61759- 2408 Jan, Chronic pain G89.29 [facility] [id number] [place] [address] 75089- 8050 Jan, [facility] [id number] [place] [address] 37941- 8631 Jan, [facility] [id number] [place] [address] 57773- 6828 Jan, [facility] [id number] [place] [address] 20258- 6300 Jan, [facility] [id number] [place] [address] 95581- 0019 Jan, Nicotine dependence F17.200 [facility] [id number] [place] [address] 43312- 0131 Jan, Nicotine dependence F17.200 and Back pain M54.9 [facility] [id number] [place] [address] 44087- 3193 Jan, [facility] [id number] [place] [address] 40941- 6509 28 Dec, 2014 [facility] [id number] [place] [address] 77794- 6592 25 Sep, 2014 Anxiety, generalized 300.02 and Major depression, recurrent 296.30 [facility] [id number] [place] [address] 73550- 8231 24 Sep, 2014 [facility] [id number] [place] [address] 00822- 9176 21 Sep, 2014 [facility] [id number] [place] [address] 63456- 8106 17 Sep, 2014 [facility] [id number] [place] [address] 30160- 6806 15 Sep, 2014 [facility] [id number] [place] [address] 92574- 4126 14 Dec, 2014 [facility] [id number] [place] [address] 03844- 9604 11 Dec, 2014 [facility] [id number] [place] [address] 93768- 3130 10 Dec, 2014 [facility] [id number] [place] [address] 35632- 5110 08 Dec, 2014 Skin tear 879.8 [facility] [id number] [place] [address] 37114- 3391 08 Dec, 2014 Routine gynecological examination V72.31 ; Breast cancer screening V76.10 and Family history of breast cancer in first degree relative V16.3 [facility] [id number] [place] [address] 87643- 3408 Dec, [facility] [id number] [place] [address] 84842- 5853 Dec, [facility] [id number] [place] [address] 00703- 2616 Nov, [facility] [id number] [place] [address] 10625- 5249 Nov, [facility] [id number] [place] [address] 46714- 7678 Nov, Poor balance 781.99 and Vascular dementia, uncomplicated 290.40 [facility] [id number] [place] [address] 22880- 3227 Nov, [facility] [id number] [place] [address] 02797- 8624 Nov, Major depression, recurrent 296.30 and Anxiety, generalized 300.02 [facility] [id number] [place] [address] 27217- 7256 Nov, [facility] [id number] [place] [address] 84989- 7759 Nov, [facility] [id number] [place] [address] 15924- 0983 Nov, [facility] [address], [place] [address]- 8341 Nov, [facility] [address], [place] [address]- 6716 Nov, Vascular dementia, uncomplicated 290.40 and Lumbago 724.2 [facility] [address] [place] [id number] [place] [address] Nov, [facility] [id number] [address] Nov, [facility] [address] [place] [id number] [place] [id number] Nov, [facility] [address] [id number] [address] Oct, [facility] [address] [id number] [address] Oct, [facility] [id number], [place] [address] Oct, [facility] [id number], [place] [address] Oct, COPD (chronic obstructive pulmonary disease) 496 and Hyperlipidemia 272.4 [facility] [id number] [place] [address] Oct, Major depression, recurrent 296.30 and Anxiety, generalized 300.02 [facility] [id number] [place] [address] Oct, [facility] [id number] [place] [address] Oct, [facility] [id number] [place] [address] Oct, [facility] [id number] [place] [address] Sep, Lumbago 724.2 and Anxiety state, unspecified 300.00 [facility] [id number] [place] [address] Sep, [facility] [address] [id number] [place] [address] Sep, [facility] [address] [id number] [place] [address] August, [facility] [address] [place] [id number] [place] [address] August, Major depression, recurrent 296.30 ; Anxiety, generalized 300.02 and No condition on [place] II V71.09 [facility] [id number] [address] August, [facility] [id number] [address] August, [facility] [address] [id number] [address] Jul, [facility] [id number], [place] [address] 77[address] Jul, [facility] [id number], [place] [address] 39[address] Jul, [facility] [id number], [place] [address] Jun, [facility] [id number] [address] 12[address] Jun, [facility] [id number], [place] [address] Jun, [facility] [id number], [place] [address] Jun, [facility] [id number], [place] [address] 67[address] Jun, [facility] [id number] [address] 23 Jun, 2014 [facility] [place] [facility] [address] [id number] [place] [address]- 2197 23 Jun, 2014 [facility] [place] [facility] [address] [id number] [place] [address]- 8156 17 Jun, 2014 [facility] [place] [facility] [address] [id number] [place] [address]- 6294 13 Jun, 2014 [facility] [place] [facility] [address] [id number] [place] [address]- 3513 13 Jun, 2014 [facility] [place] [facility] [address] [id number] [place] [address]- 7074 10 Jun, 2014 [facility] [place] [facility] [address] [id number] [place] [address]- 2166 10 Jun, 2014 [facility] [place] [facility] [address] [id number] [place] [address]- 1480 Jun, 2014 [facility] [place] [facility] [address] [id number] [place] [address]- 9129 Jun, [facility] [place] [facility] [address] [id number] [place] [address]- 5711 Jun, 2014 [facility] [place] [facility] [address] [id number] [place] [address]- 9546 Jun, [facility] [place] [facility] [address] [id number] [place] [address]- 7246 May, 2014 [facility] [place] [facility] [address] [id number] [place] [address]- 5756 May, 2014 [facility] [place] [facility] [address] [id number] [place] [address]- 6656 May, 2014 [facility] [place] [facility] [address] [id number] [place] [address]- 3376 May, 2014 [facility] [place] [facility] [address] [id number] [place] [address]- 4409 May, 2014 [facility] [place] [facility] [address] [facility] [id number] [place] [address]- 2602 May, 2014 [facility] [place] [facility] [address] [facility] [id number] [place] [address]- 0906 May, 2014 [facility] [place] [facility] [address] [facility] [id number] [place] [address]- 3316 May, 2014 [facility] [place] [facility] [address] [facility] [id number] [place] [address]- 4755 May, 2014 [facility] [place] [facility] [address] [facility] [id number] [place] [address]- 5609 May, 2014 [facility] [place] [facility] [address] [facility] [id number] [place] [address]- 6806 May, 2014 [facility] [place] [facility] [id number] [address]- 00[address] May, 2014 [facility] [place] [facility] [address] [facility] [id number] [place] [address]- 0802 May, [facility] [place] [facility] [address] [facility] [id number] [place] [address]- 7510 May, [facility] [place] [facility] [address] [facility] [id number] [place] [address]- 0010 Apr, [facility] [place] [facility] [address] [facility] [id number] [place] [address]- 2178 Apr, [facility] [place] [facility] [address] [facility] [id number] [place] [address]- 8385 Apr, [facility] [place] [facility] [address] [facility] [id number] [place] [address]- 4867 Apr, [facility] [place] [facility] [address] [facility] [id number] [place] [address]- 1883 Apr, [facility] [place] [facility] [address] [facility] [id number] [address]- 3964 Apr, [facility] [place] [facility] [address] [id number] [place] [address]- 3958 Apr, [facility] [place] [facility] [address] [id number] [place] [address]- 2077 Apr, [facility] [place] [facility] [address] [id number] [place] [address]- 1001 Apr, [facility] [place] [facility] [address] [id number] [place] [address]- 1472 Apr, [facility] [place] [facility] [address] [id number] [place] [address]- 7487 Apr, [facility] [place] [facility] [address] [id number] [place] [address]- 7521 Apr, [facility] [place] [facility] [address] [id number] [place] [address]- 3015 Mar, [facility] [place] [facility] [address] [id number] [place] [address]- 6917 31 Mar, 2014 [facility] [place] [facility] [address] [id number] [place] [address]- 2225 30 Mar, 2014 [facility] [place] [facility] [address] [id number] [place] [address]- 3725 30 Mar, 2014 [facility] [place] [facility] [address] [id number] [place] [address]- 6005 29 Mar, 2014 [facility] [place] [facility] [address] [id number] [place] [address]- 9782 29 Mar, 2014 [facility] [place] [facility] [address] [id number] [place] [address]- 6029 Mar, [facility] [place] [facility] [address] [id number] [place] [address]- 0894 19 Mar, 2014 [facility] [place] [facility] [address] [id number] [place] [address]- 9648 15 Mar, 2014 [facility] [place] [facility] [address] [id number] [place] [address]- 5551 15 Mar, 2014 [facility] [place] [facility] [address] [id number] [place] [address]- 8070 15 Mar, 2014 [facility] [place] [facility] [address] [id number] [place] [address]- 8785 Mar, [facility] [place] [facility] [address] [id number] [place] [address]- 1619 Mar, [facility] [place] [facility] [address] [id number] [place] [address]- 6380 Mar, [facility] [place] [facility] [address] [id number] [place] [address]- 0142 Mar, [facility] [place] [facility] [address] [id number] [place] [address]- 0499 Mar, [facility] [place] [facility] [address] [id number] [place] [address]- 5593 Mar, [facility] [place] [facility] [address] [id number] [place] [address]- 9295 Mar, [facility] [place] [facility] [address] [id number] [place] [address]- 9755 Mar, [facility] [place] [facility] [address] [id number] [place] [address]- 0005 Mar, [facility] [place] [facility] [address] [id number] [place] [address]- 2737 Feb, [facility] [place] [facility] [address] [id number] [address]- 0927 Feb, [facility] [place] [facility] [address] [id number] [place] [address]- 7052 Feb, [facility] [place] [facility] [address] [id number] [place] [address]- 3762 Feb, [facility] [place] [facility] [address] [id number] [place] [address]- 8753 Feb, [facility] [place] [facility] [address] [id number] [place] [address]- 9955 Feb, [facility] [place] [facility] [address] [id number] [place] [address]- 6094 Feb, [facility] [place] [facility] [address] [id number] [place] [address]- 5030 Feb, [facility] [place] [facility] [address] [id number] [place] [address]- 1995 Feb, [facility] [place] [facility] [address] [id number] [place] [address]- 1932 Feb, [facility] [place] [facility] [address] [id number] [place] [address]- 0801 Feb, [facility] [place] [facility] [address] [id number] [place] [address]- 1754 Feb, [facility] [place] [facility] [address] [id number] [place] [address]- 6485 Feb, [facility] [place] [facility] [address] [id number] [place] [address]- 2646 Feb, [facility] [place] [facility] [address] [id number] [place] [address]- 6999 Feb, [facility] [place] [facility] [address] [facility] [id number] [place] [address]- 2178 Feb, [facility] [place] [facility] [address] [id number] [place] [address]- 1671 Feb, [facility] [place] [facility] [address] [id number] [place] [address]- 7199 Jan, [facility] [place] [facility] [address] [id number] [place] [address]- 0459 Jan, [facility] [place] [facility] [address] [id number] [place] [address]- 9852 Jan, [facility] [place] [facility] [address] [id number] [place] [address]- 9246 Jan, [facility] [place] [facility] [address] [id number] [place] [address]- 2933 Jan, [facility] [place] [facility] [address] [id number] [place] [address]- 4714 Jan, [facility] [place] [facility] [address] [id number] [place] 2798 Jan, [facility] [place] [facility] [address] [id number] [place] [address]- 8548 Jan, [facility] [place] [facility] [address] [id number] [place] [address]- 3659 Jan, [facility] [place] [facility] [address] [id number] [place] [address]- 2518 Jan, [facility] [place] [facility] [address] [id number] [place] [address]- 1143 Jan, [facility] [place] [facility] [address] [id number] [place] [address]- 9107 Dec, [facility] [place] [facility] [address] [id number] [place] [address]- 5552 Dec, [facility] [place] [facility] [address] [id number] [place] [address]- 9990 Nov, [facility] [place] [facility] [address] [id number] [place] [address]- 1343 Nov, [facility] [place] [facility] [address] [id number] [address]- 9123 Nov, [facility] [place] [facility] [address] [id number] [place] [address]- 1513 Nov, [facility] [place] [facility] [address] [id number] [place] [address]- 7636 Nov, [facility] [place] [facility] [address] [id number] [place] 7272 Nov, [facility] [place] [facility] [address] [id number] [place] [address]- 2528 Nov, [facility] [place] [facility] [address] [id number] [place] [address]- 9663 Oct, [facility] [place] [facility] [address] [id number] [place] [address]- 9133 Oct, [facility] [place] [facility] [address] [id number] [place] [address]- 9375 Oct, [facility] [place] [facility] [address] [id number] [place] [address]- 8384 Oct, [facility] [place] [facility] [address] [id number] [place] [address]- 9326 Sep, [facility] [place] [facility] [address] [id number] [place] [address]- 0094 Sep, [facility] [place] [facility] [address] [id number] [place] [address]- 1489 Sep, [facility] [place] [facility] [address] [id number] [place] [address]- 6337 Sep, [facility] [place] [facility] [address] [id number] [place] [address]- 1657 Sep, [facility] [place] [facility] [address] [id number] [place] [address]- 8619 Sep, [facility] [place] [facility] [address] [id number] [place] [address]- 9085 Sep, [facility] [place] [facility] [address] [id number] [place] [address]- 1872 Sep, [facility] [place] [facility] [address] [id number] [place] [address]- 6948 Sep, [facility] [place] [facility] [address] [id number] [place] [address]- 7631 Sep, [facility] [place] [facility] [address] [id number] [place] [address]- 3251 Sep, [facility] [place] [facility] [address] [id number] [place] [address]- 1291 Sep, [facility] [address] [id number] [place] [address]- 5746 Sep, [facility] [place] [facility] [address] [id number] [place] [address]- 9350 Sep, [facility] [place] [facility] [address] [id number] [place] [address]- 8370 August, [facility] [place] [facility] [address] [id number] [place] [address]- 6463 August, [facility] [place] [facility] [address] [id number] [place] [address]- 8179 August, [facility] [place] [facility] [address] [id number] [place] [address]- 1054 August, [facility] [address] [id number] [place] [address]- 0867 August, [facility] [address] [id number] [place] [address]- 6547 August, [facility] [place] [facility] [address] [id number] [place] [address]- 5633 August, [facility] [address] [id number] [place] [address]- 8455 August, [facility] [place] [facility] [address] [id number] [place] [address]- 4268 August, [facility] [place] [facility] [address] [id number] [place] [address]- 1750 August, [facility] [place] [facility] [address] [id number] [place] [address]- 4335 August, [facility] [place] [facility] [address] [id number] [place] [address]- 0846 August, [facility] [place] [facility] [address] [id number] [place] [address]- 6289 August, [facility] [place] [facility] [address] [id number] [place] [address]- 2058 August, [facility] [place] [facility] [address] [id number] [place] [address]- 4169 August, [facility] [place] [facility] [address] [id number] [place] [address]- 3323 August, [facility] [place] [facility] [address] [id number] [place] [address]- 3855 August, [facility] [place] [facility] [address] [id number] [place] [address]- 2729 August, [facility] [place] [facility] [address] [id number] [place] [address]- 5628 August, [facility] [place] [facility] [address] [id number] [place] [address]- 9290 Jul, [facility] [place] [facility] [address] [id number] [place] [address]- 0002 Jul, [facility] [place] [facility] [address] [id number] [place] [address]- 5249 Jul, [facility] [place] [facility] [address] [id number] [place] [address]- 4787 Jul, [facility] [place] [facility] [address] [id number] [place] [address]- 4115 Jun, [facility] [place] [facility] [address] [id number] [place] [address]- 3685 Jun, [facility] [place] [facility] [address] [id number] [place] [address]- 3304 Jun, [facility] [place] [facility] [address] [id number] [place] [address]- 7675 Jun, [facility] [place] [facility] [address] [id number] [place] [address]- 3116 Jun, [facility] [place] [facility] [address] [id number] [place] [address]- 4261 17 Jun, 2013 [facility] [place] [facility] [address] [id number] [place] [address]- 6869 14 Jun, 2013 [facility] [place] [facility] [address] [id number] [place] [address]- 6418 14 Jun, 2013 [facility] [place] [facility] [address] [id number] [place] [address]- 9662 06 Jun, 2013 [facility] [place] [facility] [address] [id number] [place] [address]- 2429 06 Jun, 2013 [facility] [place] [facility] [address] [id number] [place] [address]- 6415 27 May, 2013 [facility] [place] [facility] [address] [id number] [place] [address]- 7169 27 May, 2013 [facility] [place] [facility] [address] [id number] [place] [address]- 9709 27 May, 2013 [facility] [place] [facility] [address] [id number] [place] [address]- 7864 27 May, 2013 [facility] [place] [facility] [address] [id number] [place] [address]- 1599 May, [facility] [place] [facility] [address] [facility] [id number] [place] [address]- 3688 21 May, 2013 [facility] [place] [facility] [address] [facility] [id number] [place] [address]- 5498 20 May, 2013 [facility] [place] [facility] [address] [id number] [place] [address]- 4967 19 May, 2013 [facility] [place] [facility] [address] [id number] [place] [address]- 7185 May, [facility] [place] [facility] [address] [facility] [id number] [place] [address]- 9351 18 May, 2013 [facility] [place] [facility] [address] [facility] [id number] [place] [address]- 4346 18 May, 2013 [facility] [place] [facility] [address] [id number] [place] [address]- 8520 17 May, 2013 [facility] [place] [facility] [address] [id number] [place] [address]- 2686 May, [facility] [place] [facility] [address] [facility] [id number] [place] [address]- 7326 May, [facility] [place] [facility] [address] [id number] [place] [address]- 1411 May, [facility] [place] [facility] [address] [id number] [place] [address]- 1746 May, [facility] [place] [facility] [address] [facility] [id number] [place] [address]- 8141 May, [facility] [place] [facility] [address] [facility] [id number] [place] [address]- 0161 Apr, [facility] [place] [facility] [address] [facility] [id number] [place] [address]- 8740 Apr, [facility] [place] [facility] [address] [facility] [id number] [place] [address]- 8900 Apr, [facility] [place] [facility] [address] [facility] [id number] [place] [address]- 1109 Apr, [facility] [place] [facility] [address] [facility] [id number] [place] [address]- 6729 Apr, [facility] [place] [facility] [address] [facility] [id number] [place] [address]- 4125 Apr, [facility] [place] [facility] [address] [facility] [id number] [place] [address]- 0855 Apr, [facility] [place] [facility] [address] [facility] [id number] [place] [address]- 8178 Mar, [facility] [place] [facility] [address] [facility] [id number] [place] [address]- 0166 Mar, [facility] [place] [facility] [address] [id number] [place] [address]- 9095 Mar, [facility] [address] [id number] [place] [address] Mar, [facility] [place] [facility] [address] [id number] [place] [address] Mar, [facility] [place] [facility] [address] [id number] [place] [address] Mar, [facility] [place] [facility] [address] [id number] [place] [address] Mar, [facility] [place] [facility] [address] [id number] [place] [address] Mar, [facility] [place] [facility] [address] [id number] [place] [address] Mar, [facility] [place] [facility] [address] [id number] [place] [address] Mar, [facility] [place] [facility] [address] [id number] [place] [address] Mar, [facility] [place] [facility] [address] [id number] [place] [address] Feb, [facility] [place] [facility] [address] [id number] [place] [address] Feb, [facility] [place] [facility] [address] [id number] [place] [address] Feb, [facility] [place] [facility] [address] [id number] [place] [address] Feb, [facility] [place] [facility] [address] [id number] [place] [address] Feb, [facility] [place] [facility] [address] [id number] [place] [address]- [address] Feb, [facility] [place] [facility] [address] [id number] [place] [address] 15 Feb, 2013 [facility] [place] [facility] [address] [id number] [place] [address]- [address] 14 Feb, 2013 [facility] [place] [facility] [address] [id number] [place] [address] 14 Feb, 2013 [facility] [place] [facility] [address] [id number] [place] [address]- 9068 13 Feb, 2013 [facility] [place] [facility] [address] [id number] [place] [address]- [address] 13 Feb, 2013 [facility] [place] [facility] [address] [id number] [place] [address]- [address] Feb, [facility] [place] [facility] [address] [id number] [place] [address] Feb, [facility] [place] [facility] [address] [id number] [place] [address]- [address] Feb, [facility] [place] [facility] [address] [id number], [place] [address] Feb, [facility] [place] [facility] [address] [id number] [place] [address] Feb, [facility] [place] [facility] [address] [id number], [place] [address] Jan, [facility] [place] [facility] [address] [id number], [place] [address] 24 Jan, 2013 [facility] [place] [facility] [address] [id number], [place] [address] 24 Jan, 2013 [facility] [place] [facility] [address] [id number], [place] [address] 24 Jan, 2013 [facility] [place] [facility] [address] [id number], [place] [address] 24 Jan, 2013 [facility] [place] [facility] [address] [id number], [place] [address] Jan, [facility] [place] [facility] [address] [id number] [place] [address] 22 Jan, 2013 [facility] [place] [facility] [address] [id number] [place] [address] 4030 10 Jan, 2013 [facility] [place] [facility] [address] [id number] [place] [address]- [address]276 10 Jan, 2013 [facility] [place] [facility] [address] [id number] [place] [address]- [address]990 27 Dec, 2012 [facility] [place] [facility] [address] [id number] [place] [address] 20 Dec, 2012 [facility] [place] [facility] [address] [id number] [place] [address]- [address]34 19 Dec, 2012 [facility] [place] [facility] [address] [id number] [place] [address]- 9664 10 Dec, 2012 [facility] [place] [facility] [address] [id number] [place] [address]- [address]698 04 Dec, 2012 [facility] [place] [facility] [address] [id number] [place] [address]- [address]38 03 Dec, 2012 [facility] [place] [facility] [address] [id number] [place] [address]- 97[address] Nov, [facility] [place] [facility] [address] [id number] [place] [address]- 3069 Nov, [facility] [place] [facility] [address] [id number] [place] [address]- [address]958 Nov, [facility] [place] [facility] [address] [id number] [place] [address]- 2542 Nov, [facility] [place] [facility] [address] [id number] [place] [address]- 7526 Nov, [facility] [place] [facility] [address] [id number] [place] [address]- 0468 Nov, [facility] [place] [facility] [address] [id number] [place] [address]- 6647 15 Nov, 2012 [facility] [place] [facility] [address] [id number] [place] [address]- [address] Nov, [facility] [place] [facility] [address] [id number] [place] [address]- [address]007 Nov, [facility] [place] [facility] [address] [id number] [place] [address]- 4066 Nov, [facility] [place] [facility] [address] [id number] [place] [address]- 1211 Oct, [facility] [place] [facility] [address] [id number] [place] [address] 480[address] Oct, [facility] [place] [facility] [address] [id number] [place] [address]- 8085 Oct, [facility] [place] [facility] [address] [id number] [place] [address]- 2816 Oct, [facility] [place] [facility] [address] [id number] [place] [address]- 6018 Oct, [facility] [place] [facility] [address] [id number] [place] [address]- 1670 Oct, [facility] [place] [facility] [address] [id number] [place] [address]- 47[address] Oct, [facility] [place] [facility] [address] [id number] [place] [address] 3919 Oct, [facility] [place] [facility] [address] [id number] [place] [address]- 6988 Sep, [facility] [place] [facility] [address] [id number] [place] [address]- [address]64 Sep, [facility] [place] [facility] [address] [id number] [place] [address]- [address]376 Sep, [facility] [place] [facility] [address] [id number] [place] [address]- 2315 Sep, [facility] [place] [facility] [address] [id number] [place] [address]- 4586 Sep, [facility] [address] [id number] [place] [address]- 8692 Sep, [facility] [address] [id number] [place] [address]- 7434 Sep, [facility] [address] [id number] [place] [address]- 4[address] Sep, [facility] [address] [id number] [place] [address]- 1875 August, [facility] [address] [id number] [place] [address]- 6330 August, [facility] [address] [id number] [place] [address]- 5729 August, [facility] [address] [address] [id number] [place] [address] August, [facility] [address] [id number] [place] [address] August, [facility] [address] [id number] [place] [address] Jul, [facility] [place] [facility] [address] [id number] [place] [address] 47[address] Jul, [facility] [address] [id number] [place] [address] 7165 Jul, [facility] [place] [facility] [address] [id number] [place] [address] 49[address] Jul, [facility] [place] [facility] [address] [id number] [place] [address] 2858 Jul, [facility] [place] [facility] [address] [id number] [place] [address] 8717 Jun, [facility] [place] [facility] [address] [id number] [place] [address] 47[address] Jun, [facility] [place] [facility] [address] [id number] [place] [address]- [address]33 15 Jun, 2012 [facility] [address] [id number] [place] [address] 7523 14 Jun, 2012 [facility] [address] [id number] [place] [address]- 5346 12 Jun, 2012 [facility] [address] [id number] [place] [address]- 0998 08 Jun, 2012 [facility] [address] [id number] [place] [address]- 7636 08 Jun, 2012 [facility] [address] [id number] [place] [address]- 8482 02 Jun, 2012 [facility] [address] [id number] [place] [address] 2546 Jun, [facility] [address] [id number] [place] [address] 7020 May, [facility] [address] [id number] [place] [address]- 5113 May, [facility] [address] [id number] [place] [address]- 5203 May, [facility] [address] [id number] [place] [address]- 7354 May, [facility] [address] [id number] [place] [address]- 9025 Apr, [facility] [address] [id number] [place] [address]- 6324 Apr, [facility] [place] [facility] [address] [id number] [place] [address]- 4386 Apr, [facility] [address] [id number] [place] [address]- 2546 Apr, [facility] [address] [id number] [place] [address]- 5935 Apr, [facility] [address] [id number] [place] [address]- 4065 Apr, [facility] [address] [id number] [place] [address]- 1042 Apr, [facility] [address] [id number] [place] [address] Mar, [facility] [address] [place] [id number] Mar, [facility] [address] [id number] [place] [address]- 6328 Mar, [facility] [address] [id number] [place] [address]- 2127 Mar, [facility] [address] [id number] [place] [address]- 7583 Mar, [facility] [address] [id number] [place] [address]- 8940 Mar, [facility] [address] [id number] [place] [address] 0751 Mar, [facility] [address] [id number] [place] [address] 7898 Mar, [facility] [address] [id number] [place] [address]- 3612 Mar, [facility] [address] [id number] [place] [address]- 7555 Mar, [facility] [address] [id number] [place] [address]- 7772 Mar, [facility] [address] [id number] [place] [address]- 6377 Mar, [facility] [address] [id number] [place] [address]- 8861 Mar, [facility] [address] [id number] [place] [address]- 5235 Mar, [facility] [place] [facility] [address] [id number] [place] [address]- 8673 Mar, [facility] [place] [facility] [address] [id number] [place] [address]- 0536 Mar, [facility] [place] [facility] [address] [id number] [place] [address]- 2896 Mar, [facility] [place] [facility] [address] [id number] [place] [address]- 0599 Feb, [facility] [place] [facility] [address] [id number] [place] [address]- 0125 Feb, [facility] [place] [facility] [address] [id number] [place] [address]- 6286 Feb, [facility] [place] [facility] [address] [id number] [place] [address]- 9472 Feb, [facility] [place] [facility] [address] [id number] [place] [address]- 6335 Feb, [facility] [place] [facility] [address] [id number] [place] [address]- 7239 Feb, [facility] [place] [facility] [address] [id number] [place] [address]- 9152 Feb, [facility] [place] [facility] [address] [id number], [place] [address] 6[address] Feb, [facility] [place] [facility] [address] [id number], [place] [address]- 7501 Feb, [facility] [place] [facility] [address] [id number] [place] [address]- 4463 Feb, [facility] [place] [facility] [address] [id number] [place] [address]- 5518 Feb, [facility] [place] [facility] [address] [id number] [place] [address]- 2372 Feb, [facility] [place] [facility] [address] [id number] [place] [address]- 2038 Feb, [facility] [place] [facility] [address] [id number] [place] [address]- 9090 Feb, [facility] [place] [facility] [address] [id number] [place] [address]- 2688 Feb, [facility] [place] [facility] [address] [id number] [place] [address]- 8342 Feb, [facility] [place] [facility] [address] [id number] [place] [address]- 7896 Jan, [facility] [place] [facility] [address] [id number] [place] [address] Jan, [facility] [place] [facility] [address] [id number] [place] [address]- 9902 Jan, [facility] [place] [facility] [address] [id number] [place] [address]- 3829 Jan, [facility] [place] [facility] [address] [id number] [place] [address]- 0254 Jan, [facility] [place] [facility] [address] [id number] [place] [address]- 0826 Jan, [facility] [place] [facility] [address] [facility] [id number] [place] [address]- 1888 Jan, [facility] [place] [facility] [address] [id number] [place] [address]- 1361 Jan, [facility] [place] [facility] [address] [id number], [place] [address]- 3833 Jan, [facility] [place] [facility] [address] [id number] [place] [address]- 1355 Jan, [facility] [place] [facility] [address] [facility] [id number] [place] [address]- 3473 Jan, [facility] [place] [facility] [address] [id number] [place] [address]- 9528 Jan, [facility] [place] [facility] [address] [id number] [place] [address]- 7252 Jan, [facility] [place] [facility] [address] [id number] [place] [address]- 4007 Jan, [facility] [place] [facility] [address] [id number] [place] [address]- 8812 08 Jan, 2012 [facility] [place] [facility] [address] [id number] [place] [address]- 6689 05 Jan, 2012 [facility] [place] [facility] [address] [id number] [place] [address]- 7861 04 Jan, 2012 [facility] [place] [facility] [address] [id number] [place] [address]- 9572 21 Dec, 2011 [facility] [place] [facility] [address] [id number] [place] [address]- 3733 20 Dec, 2011 [facility] [place] [facility] [address] [id number] [place] [address]- 4536 18 Dec, 2011 [facility] [place] [facility] [address] [id number] [place] [address]- 7175 18 Dec, 2011 [facility] [place] [facility] [address] [id number], [place] [address]- 1092 10 Dec, 2011 [facility] [place] [facility] [address] [id number], [place] [address]- 6137 10 Dec, 2011 [facility] [place] [facility] [address] [id number], [place] [address]- 3023 10 Dec, 2011 [facility] [place] [facility] [address] [id number] [place] [address]- 3059 07 Dec, 2011 [facility] [place] [facility] [address] [id number], [place] [address]- 3440 30 Nov, 2011 [facility] [place] [facility] [address] [id number], [place] [address]- 5385 25 Nov, 2011 [facility] [place] [facility] [address] [id number], [place] [address]- 2197 Nov, [facility] [place] [facility] [address] [id number] [place] [address]- 9556 Nov, [facility] [place] [facility] [address] [id number] [place] [address]- 5356 Nov, [facility] [place] [facility] [address] [id number] [place] [address]- 2006 Nov, [facility] [place] [facility] [address] [id number] [place] [address]- 0237 Oct, [facility] [place] [facility] [address] [id number] [place] [address]- 7878 Oct, [facility] [place] [facility] [address] [id number] [place] [address]- 7908 Oct, [facility] [place] [facility] [address] [id number] [place] [address]- 1360 Oct, [facility] [place] [facility] [address] [id number] [place] [address]- 8070 Oct, [facility] [place] [facility] [address] [id number] [place] [address]- 8273 Oct, [facility] [place] [facility] [address] [facility] [id number] [place] [address]- 2194 Oct, [facility] [place] [facility] [address] [id number] [place] [address]- 2264 Sep, [facility] [place] [facility] [address] [id number] [place] [address]- 2397 Sep, [facility] [place] [facility] [address] [id number] [place] [address]- 8447 Sep, [facility] [place] [facility] [address] [id number] [place] [address]- 6628 Sep, [facility] [place] [facility] [address] [id number] [place] [address]- 2212 Sep, [facility] [place] [facility] [address] [id number] [place] [address]- 4127 15 Sep, 2011 [facility] [place] [facility] [address] [id number] [place] [address]- 3131 14 Sep, 2011 [facility] [place] [facility] [address] [id number] [place] [address]- 0509 Sep, [facility] [place] [facility] [address] [id number] [place] [address]- 9532 05 Sep, 2011 [facility] [place] [facility] [address] [id number] [place] [address]- 9660 04 Sep, 2011 [facility] [place] [facility] [address] [id number] [place] [address]- 0109 August, [facility] [place] [facility] [address] [id number] [place] [address]- 2454 August, [facility] [place] [facility] [address] [id number] [place] [address]- 1332 August, [facility] [place] [facility] [address] [id number] [place] [address]- 2992 August, [facility] [place] [facility] [address] [id number] [place] [address]- 4162 August, [facility] [place] [facility] [address] [id number] [place] [address]- 3241 Jul, [facility] [place] [facility] [address] [id number] [place] [address]- 6421 Jul, [facility] [place] [facility] [address] [id number] [place] [address]- 8191 Jul, [facility] [place] [facility] [address] [id number] [place] [address]- 2764 17 Jul, 2011 [facility] [place] [facility] [address] [id number] [place] [address]- 5130 Jul, [facility] [place] [facility] [address] [id number] [place] [address]- 9708 Jul, [facility] [place] [facility] [address] [id number] [place] [address]- 1568 Jul, [facility] [place] [facility] [address] [id number] [place] [address]- 5456 Jun, [facility] [place] [facility] [address] [id number] [place] [address]- 4026 Jun, [facility] [place] [facility] [address] [id number] [place] [address]- 8593 Jun, [facility] [place] [facility] [address] [id number] [place] [address]- 6683 Jun, [facility] [place] [facility] [address] [id number] [place] [address]- 1954 Jun, [facility] [place] [facility] [address] [id number] [place] [address]- 8111 May, [facility] [place] [facility] [address] [id number] [place] [address]- 0692 May, [facility] [place] [facility] [address] [id number] [place] [address]- 9236 May, [facility] [place] [facility] [address] [id number] [place] [address]- 2853 May, [facility] [place] [facility] [address] [id number] [place] [address]- 0661 May, [facility] [place] [facility] [address] [id number] [place] [address]- 8650 May, [facility] [place] [facility] [address] [id number] [place] [address]- 3296 Apr, [facility] [place] [facility] [address] [id number] [place] [address]- 3506 Mar, [facility] [place] [facility] [address] [id number] [place] [address]- 7696 Feb, [facility] [place] [facility] [address] [id number] [place] [address]- 3963 07 Feb, 2011 [facility] [place] [facility] [address] [id number] [place] [address]- 7536 Feb, [facility] [place] [facility] [address] [id number] [place] [address]- 1371 Feb, [facility] [place] [facility] [address] [id number] [place] [address]- 4157 Jan, [facility] [place] [facility] [address] [id number] [place] [address]- 5794 Jan, [facility] [place] [facility] [address] [id number] [place] [address]- 6801 Jan, [facility] [place] [facility] [address] [id number] [place] [address]- 2022 24 Jan, 2011 [facility] [place] [facility] [address] [id number] [place] [address]- 5355 14 Jan, 2011 [facility] [place] [facility] [address] [id number] [place] [address]- 9086 Dec, [facility] [place] [facility] [address] [id number] [place] [address]- 1833 Oct, [facility] [place] [facility] [address] [id number] [place] [address]- 7736 August, [facility] [place] [facility] [address] [id number] [place] [address]- 1626 29 Mar, 2010 [facility] [place] [facility] [address] [id number] [place] [address]641 27 Mar, 2010 [facility] [place] [facility] [address] [id number] [place] [address]- 9034 16 Mar, 2010 [facility] [place] [facility] [address] [id number] [place] [address] 2545 15 Mar, 2010 [facility] [place] [facility] [address] [id number] [place] [address]- 1182 15 Mar, 2010 [facility] [place] [facility] [address] [id number] [place] [address]- 0214 08 Mar, 2010 [facility] [place] [facility] [address] [id number] [place] 6196 Mar, [facility] [place] [facility] [address] [id number] [place] [address]- 1346 Feb, [facility] [place] [facility] [address] [id number] [place] [address]- 6196 Feb, [facility] [place] [facility] [address] [id number] [place] [address]- 2890 Feb, [facility] [place] [facility] [address] [id number] [place] [address]- 2267 Jan, [facility] [place] [facility] [address] [id number] [place] [address]- 8705 Jan, [facility] [place] [facility] [address] [id number], [place] [address]- 6236 Jan, [facility] [place] [facility] [address] [id number] [place] [address]- 7793 Nov, [facility] [place] [facility] [address] [id number], [place] [address]- 1539 Sep, [facility] [place] [facility] [address] [id number], [place] [address]- 0351 August, [facility] [place] [facility] [address] [id number], [place] [address]- 9354 Mar, [facility] [place] [facility] [address] [id number] [place] [address]- 8293 Mar, [facility] [place] [facility] [address] [id number], [place] [address]- 3996 17 Feb, 2009 [facility] [place] [facility] [address] [id number] [place] [address]- 6260 Feb, [facility] [place] [facility] [address], [place] [address]- 5248 10 Feb, 2009 [facility] [address], [place] [address]- 2284 10 Feb, 2009 [facility] [id number], [place] [address]- 6844 Feb, [facility] [id number], [place] [address]- 9959 Jan, [facility] [id number], [place] [address]- 5201 Jan, [facility] [id number] [place] [address]- 3177 Jan, [facility] [id number] [place] [address]- 5568 Jan, [facility] [id number] [place] [address] 86384- 0865 Nov, [facility] [address], [place] [address]- 7697 Sep, [facility] [address], [place] [address]- 5246 August, [facility] [address], [place] [address]- 3366 Jul, [facility] [address], [place] [address]- 7733 May, IMMUNIZATIONS No Known Immunizations SOCIAL HISTORY Never Assessed REASON FOR VISIT Requests return call/lab result PLAN OF CARE VITAL SIGNS MEDICATIONS Unknown [...] Knee Surgery 07/16/17 Hospitalization History [facility] [place]- left hand/wrist swelling 10/09/2017
--- OUTSIDE RECORDS SUMMARY | 2018-01-01 11:36 | XMS REPORT ---
Author Author MARCO A GALEAS Organization [facility] Address [address] [place] [address] Care Team Providers Care Perpetual Inventory Clerk Name Role Phone MARCO A GALEAS Unavailable PROBLEMS Type Condition ICD9-CM Code [id number] Code Onset Dates Condition Status SNOMED Code Problem 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 Active 54110812 Problem Colon polyp K63.5 Active 18149067 Problem Screening breast examination Z12.39 Active 386940039 Problem Bilateral low back pain without sciatica M54.5 Active 047592892 Problem Postmenopausal Z78.0 Active 39323923 Problem Essential tremor G25.0 Active 08200277 Problem Osteopenia M85.80 Active 897044274 Problem Hyperlipidemia E78.5 Active 60270269 Problem Cigarette nicotine dependence without complication F17.210 Active 13695455 Problem Vascular dementia without behavioral disturbance F01.50 Active [id number] Problem Arthritis M19.90 Active 6719489 Problem Chronic atrial fibrillation I48.2 Active 375198421 Problem Dementia without behavioral disturbance, unspecified dementia type F03.90 Active 68403942 Problem Other chronic pancreatitis K86.1 Active 322892075 Problem Xeroderma Q80.9 Active 32246228 Problem Chronic obstructive pulmonary disease with acute lower respiratory infection J44.0 Active 081653094 Problem Type 2 diabetes mellitus with diabetic neuropathy, without long-term current use of insulin E11.40 Active 56920876 Problem Atherosclerosis of rincon artery of both lower extremities with intermittent claudication I70.213 Active 969474418030874 Problem Hammertoe of right foot M20.41 Active 730018371 Problem Hammertoe of left foot M20.42 Active 186981797 Problem Migraine without aura and with status migrainosus, not intractable G43.001 Active 373222984 Problem Migraine without aura and without status migrainosus, not intractable G43.009 Active 416309413 Problem Major depressive disorder, recurrent episode, moderate F33.1 Active 477451603 Problem Unspecified psychosis F29 Active 92787206 Problem Cervicalgia M54.2 Active 3547717456010 Problem Diabetic polyneuropathy associated with type 2 diabetes mellitus E11.42 Active 10691768 Problem COPD (chronic obstructive pulmonary disease) J44.9 Active 06780290 Problem 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 Active 2952341890195 Problem Gastroparesis K31.84 Active 381174761 Problem Stress incontinence of urine N39.3 Active 69607010 Problem Osteoporosis M81.0 Active 82196989 Problem Controlled type 2 diabetes mellitus without complication, without long -term current use of insulin E11.9 Active 874014513 Problem Barretts esophagus K22.70 Active 821119029 Problem Chronic fatigue R53.82 Active 10670091 Problem History of common bile duct surgery Z98.89 Active 375792079 Problem Bipolar affective disorder, currently depressed, moderate F31.32 Active 209511353 Problem Generalized anxiety disorder F41.1 Active 761746277 Problem Gastroesophageal reflux disease, esophagitis presence not specified K21.9 Active 392230662 Problem Coronary artery disease involving rincon coronary artery of rincon 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 I25.118 Active 5290851575194 Problem Postconcussion syndrome F07.81 Active 90677072 Problem Chronic pain syndrome G89.4 Active 315729342 Problem Type 2 diabetes mellitus with diabetic peripheral angiopathy without gangrene E11.51 Active 645726837 Problem Paroxysmal atrial fibrillation I48.0 Active 846660369 Problem Unspecified atherosclerosis of rincon arteries of extremities, unspecified extremity I70.209 Active 166526045169110 Problem Acute exacerbation of chronic obstructive pulmonary disease (COPD) J44.1 Active 455757538 Problem Crohn''s disease without complication, unspecified gastrointestinal tract location K50.90 Active 43626062 ALLERGIES Substance Reaction Event Type Date Status Penicillin V Potassium rash Drug Allergy Sep, Active Neosporin rash Drug Allergy Sep, Active Ibuprofen rash Drug Allergy Sep, Active Glipizide hives, nausea Drug Allergy Sep, Active ENCOUNTERS Encounter Location Date Diagnosis [facility] [address] [facility] [id number] [place] [address] Feb, [facility] [address] [facility] [id number] [place] [address] 25259- 2680 Nov, Onychomycosis B35.1 ; Hammertoe of left foot M20.42 ; Hammertoe of right foot M20.41 and Type 2 diabetes mellitus with diabetic neuropathy, without long-term current use of insulin E11.40 [facility] [address] [place] [address] 87848- 5521 Nov, [facility] [address] [place] [id number] [place] [address] 71754- 6304 Nov, Bronchitis J40 [facility] [address] [place] [id number] [place] [address] 98459- 3821 Oct, [facility] [address] [place] [id number] [place] [address] 76578- 7842 Oct, Bipolar affective disorder, currently depressed, moderate F31.32 ; Vascular dementia without behavioral disturbance F01.50 and Generalized anxiety disorder F41.1 [facility] [address] [place] [id number] [place] [address] 73969- 4441 Oct, [facility] [address] [place] [id number] [place] [address] 28666- 2556 Oct, [facility] [address] [place] [id number] [place] [address] 41441- 8824 Oct, Edema of both legs R60.0 [facility] [address] [place] [id number] [place] [address] 17016- 1637 Oct, [facility] [address] [place] [id number] [place] [address] 31628- 4955 Sep, [facility] [address] [place] [id number] [place] [address] 02342- 7636 Sep, [facility] [address] [place] [id number] [place] [address] 34762- 6373 Sep, [facility] [address] [place] [id number] [place] [address] 21094- 9660 Sep, Encounter for well woman exam with routine gynecological exam Z01.419 ; Screening for STDs (sexually transmitted diseases) Z11.3 ; Screening breast examination Z12.31 and Overweight (BMI 25.0-29.9) E66.3 [facility] [address] [id number] [place] [address] 57702- 6001 Sep, [facility] [id number] [place] [address] 35673- 1952 Sep, [facility] [address] [id number] [place] [address] 44262- 2795 Sep, [facility] [address] [id number] [place] [address] 96162- 0457 August, [facility] [address] [place] [id number] [place] [address] 43562- 8545 August, [facility] [address] [place] [id number] [place] [address] 20751- 7129 August, Type 2 diabetes mellitus with diabetic neuropathy, without long-term current use of insulin E11.40 and Sprain of right ankle, unspecified ligament, initial encounter S93.401A [facility] [address] [place] [id number] [place] [address] 22462- 4288 August, [facility] [address] [place] [id number] [place] [address] 15676- 1650 August, [facility] [address] [place] [id number] [place] [address] 44026- 5792 August, [facility] [address] [place] [id number] [place] [address] 48994- 9168 August, Gastroesophageal reflux disease, esophagitis presence not specified K21.9 [facility] [address] [place] [id number] [place] [address] 01004- 0985 August, [facility] [address] [place] [id number] [place] [address] 13249- 4220 August, [facility] [address] [place] [id number] [place] [address] 60016- 4316 August, [facility] [address] [place] [address] 40670- 6988 August, Type 2 diabetes mellitus with diabetic neuropathy, without long-term current use of insulin E11.40 and Elevated liver enzymes R74.8 [facility] [address] [place] [id number] [place] [address] 36018- 2590 Jul, [facility] [address] [place] [id number] [place] [address] 62879- 9843 Jul, Cough R05 [facility] [address] [place] [id number] [place] [address] 71071- 6539 Jul, [facility] [address] [place] [id number] [place] [address] 06644- 3342 Jul, [facility] [address] [place] [id number] [place] [address] 02328- 8571 Jul, Bipolar affective disorder, currently depressed, moderate F31.32 ; Vascular dementia without behavioral disturbance F01.50 and Generalized anxiety disorder F41.1 [facility] [address] [place] [id number] [place] [address] 38897- 5813 Jul, [facility] [address] [place] [id number] [place] [address] 31123- 4759 Jul, Type 2 diabetes mellitus with diabetic neuropathy, without long-term current use of insulin E11.40 and Elevated liver enzymes R74.8 [facility] [address] [place] [id number] [place] [address] 80206- 5360 Jul, [facility] [address] [place] [id number] [place] [address] 34957- 0390 Jul, [facility] [address] [place] [id number] [place] [address] 90452- 1144 Jul, [facility] [address] [place] [id number] [place] [address] 03049- 0693 Jul, Post-menopausal Z78.0 [facility] [address] [place] [id number] [place] [address] 50677- 3216 Jul, Stress incontinence of urine N39.3 [facility] [address] [place] [id number] [place] [address] 29590- 7452 Jul, [facility] [address] [place] [id number] [place] [address] 00227- 2720 Jul, [facility] [address] [place] [id number] [place] [address] 24159- 9890 Jul, Stress incontinence of urine N39.[address] [facility] [address] [place] [id number] [place] [address] 21598- 7500 Jul, [facility] [address] [place] [id number] [place] [address] 58054- 6415 Jul, [facility] [address] [place] [id number] [place] [address] 76387- 0219 Jul, [facility] [address] [place] [id number] [place] [address] 06060- 1375 Jul, Gastroesophageal reflux disease, esophagitis presence not specified K21.9 [facility] [address] [place] [id number] [place] [address] 72309- 4766 Jun, Diabetic polyneuropathy associated with type 2 diabetes mellitus E11.42 [facility] [address] [place] [id number] [place] [address] 96513- 3866 Jun, Diabetic polyneuropathy associated with type 2 diabetes mellitus E11.42 ; Coronary artery disease involving rincon coronary artery of rincon 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 I25.118 and Paroxysmal atrial fibrillation I48.0 [facility] [address] [place] [id number] [place] [address] 93880- 1290 Jun, [facility] [address] [place] [id number] [place] [address] 89266- 8394 Jun, [facility] [address] [place] [id number] [place] [address] 84258- 8432 Jun, Gastroenteritis K52.9 [facility] [address] [place] [address]- 8410 Jun, Gastroenteritis K52.9 [facility] [address] [place] [id number] [place] [address] 80452- 2293 Jun, 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 ; Chronic atrial fibrillation I48.2 and Crohn''s disease without complication, unspecified gastrointestinal tract location K50.90 [facility] [address] [place] [address] 31011 -3424 17 Jun, 2017 Chronic obstructive pulmonary disease with acute lower respiratory infection J44.0 and Cough R05 [facility] [address] [place] [id number] [place] [address] 08301- 0969 16 Jun, 2017 [facility] [address] [place] [address] 92714- 5314 15 Jun, 2017 Coughing R05 ; Unspecified atherosclerosis of rincon arteries of extremities, unspecified extremity I70.209 ; Type 2 diabetes mellitus with diabetic peripheral angiopathy without gangrene E11.51 ; Crohn''s disease without complication, unspecified gastrointestinal tract location K50.90 ; Other chronic pancreatitis K86.1 and Chronic atrial fibrillation I48.2 [facility] [address] [place] [address] 25205 -6077 Jun, [facility] [address] [place] [address] 59381- 0781 06 Jun, 2017 Bipolar affective disorder, currently depressed, moderate F31.32 ; Vascular dementia without behavioral disturbance F01.50 and Generalized anxiety disorder F41.1 [facility] [address] [place] [address] 34735- 3353 May, Generalized anxiety disorder F41.1 [facility] [address] [place] [id number] [place] [address] 59090- 3898 May, [facility] [address] [place] [id number] [place] [address] 53905- 8928 May, [facility] [address] [place] [id number] [place] [address] 10165- 4967 May, Coughing R05 [facility] [address] 36150- 2534 May, [facility] [address] [place] [id number] [place] [address] 39810- 2807 May, Bipolar affective disorder, currently depressed, moderate F31.32 ; Vascular dementia without behavioral disturbance F01.50 and Generalized anxiety disorder F41.1 [facility] [address] [place] [id number] [place] [address] 74416- 9438 Apr, Generalized anxiety disorder F41.1 [facility] [address] [place] [id number] [place] [address] 12638- 1684 Apr, [facility] [address] [place] [id number] [place] [address] 55196- 7579 Apr, Vascular dementia without behavioral disturbance F01.50 ; Generalized anxiety disorder F41.1 and Bipolar affective disorder, currently depressed, moderate F31.32 [facility] [address] [place] [address] 27649- 3383 Apr, Generalized anxiety disorder F41.1 [facility] [address] [place] [id number] [place] [address] 76424 -6972 Apr, Cough R05 and Acute exacerbation of chronic obstructive pulmonary disease (COPD) J44.1 [facility] [address] [place] [id number] [place] [address] 20850- 6213 Apr, [facility] [id number] [place] [address] 75408 -3979 Mar, Cough R05 and Cigarette nicotine dependence without complication F17.210 [facility] [address] [place] [id number] [place] [address] 75107- 6876 Mar, [facility] [address] [place] [id number] [place] [address] 87422- 4890 Feb, Generalized anxiety disorder F41.1 ; Major depressive disorder, recurrent episode, moderate F33.1 ; Vascular dementia without behavioral disturbance F01.50 and Unspecified psychosis F29 [facility] [address] [place] [id number] [place] [address] 63234- 2562 Feb, [facility] [address] [place] [id number] [place] [address] 78915- 4531 Feb, [facility] [address] 78338- 7038 Feb, Generalized anxiety disorder F41.1 [facility] [address] [place] [id number] [place] [address] 02275- 8686 Feb, Generalized anxiety disorder F41.1 [facility] [address] [place] [id number] [place] [address] 02367- 6840 Feb, Dizziness R42 ; Chronic fatigue R53.82 ; Postconcussion syndrome F07.81 ; Fall, initial encounter W19.XXXA and Disorientation R41.0 [facility] [address] [place] [id number] [place] [address] 29749- 5519 Feb, Postconcussion syndrome F07.81 ; Injury of head, initial encounter S09.90XA ; Fall, initial encounter W19.XXXA ; Disorientation R41.0 and Acute cystitis with hematuria N30.01 [facility] [address] [place] [address] 85470- 6066 Jan, Gastroesophageal reflux disease, esophagitis presence not specified K21.9 ; Post-menopausal Z78.0 and Migraine without aura and without status migrainosus, not intractable G43.009 [facility] [address] [place] [id number] [place] [address] 38375- 3393 Jan, [facility] [address] [place] [id number] [place] [address] 34927- 7005 Jan, Generalized anxiety disorder F41.1 ; Major depressive disorder, recurrent episode, moderate F33.1 ; Vascular dementia without behavioral disturbance F01.50 and Unspecified psychosis F29 [facility] [address] [place] [id number] [place] [address] 45538- 5379 Jan, Pneumonia of left lower lobe due to infectious organism J18.1 [facility] [address] [place] [id number] [place] [address] 65123- 0690 Jan, Migraine without aura and with status migrainosus, not intractable G43.001 [facility] [address] [place] [id number] [place] [address] 58608 -0415 Jan, Migraine without aura and without status migrainosus, not intractable G43.009 [facility] [address] [place] [id number] [place] [address] 60272- 1079 Dec, Hematoma T14.8 [facility] [address] [place] [id number] [place] [address] 99295- 8004 Dec, [facility] [address] [place] [id number] [place] [address] 16510 -9257 Nov, Fatigue, unspecified type R53.83 [facility] [address] [place] [id number] [place] [address] 03178- 1293 Nov, Scabies B86 and Coronary artery disease involving rincon coronary artery of rincon 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 I25.118 [facility] [address] [place] [id number] [place] [address] 51380- 8039 Nov, [facility] [address] [place] [id number] [place] [address] 62284- 6295 Nov, [facility] [address] [place] [id number] [place] [address]- 4281 Oct, [facility] [address] [place] [id number] [place] [address] 59569- 0423 Oct, Generalized anxiety disorder F41.1 and Major depressive disorder, recurrent episode, moderate F33.1 [facility] [address] [place] [id number] [place] [address] 76156- 2805 Oct, Cramp of both lower extremities R25.2 [facility] [address] [place] [id number] [place] [address] 14324- 9163 18 Oct, [address] [facility] [address] 76557- 2039 Oct, Chronic pain syndrome G89.4 [facility] [address] [place] [id number] [place] [address] 72834- 9746 17 Oct, 2016 [facility] [address] [place] [id number] [place] [address] 22456- 6920 14 Oct, 2016 [facility] [address] [place] [id number] [place] [address] 41749- 2328 Oct, Routine gynecological examination Z01.419 and Screening for breast cancer Z12.31 [facility] [address] [place] [id number] [place] [address] 63949- 9974 Sep, Diarrhea R19.7 [facility] [address] [place] [id number] [place] [address] 85814- 6088 Sep, Back pain M54.9 [facility] [address] [place] [id number] [place] [address] 43235- 9366 Sep, [facility] [address] [place] [id number] [place] [address] 33254- 7386 Sep, [facility] [address] [place] [address] 93411 -2480 August, Xeroderma Q80.9 [facility] [address] [place] [address] 26650- 3050 August, Dementia without behavioral disturbance, unspecified dementia type F03.90 [facility] [address] 08917- 5082 August, Chronic pain syndrome G89.4 [facility] [address] 96627- 8310 August, [place] [address] 57581- 3450 August, Hyperlipidemia E78.5 ; Other fatigue R53.83 and Other specified hypotension I95.89 [facility] [address] 62876 -5154 August, Dysuria R30.0 ; Other fatigue R53.83 and Other specified hypotension I95.89 [facility] [address] 30900- 9555 August, [facility] [address] 28057- 0343 Jul, Pain in left knee M25.562 and Gastroenteritis K52.9 [facility] [address] 78717- 8165 Jul, [place] [address] 47906- 0882 Jul, Diarrhea R19.7 [facility] [address] 95059 -0476 Jul, Spider bite, accidental or unintentional, initial encounter T63.301A [facility] [address] 31109- 0210 Jul, Primary osteoarthritis of right knee M17.11 and Arthritis M19.90 [facility] [address] 26909- 6643 Jul, Generalized anxiety disorder F41.1 and Major depressive disorder, recurrent episode, moderate F33.1 [facility] [address] [place] [id number] [place] [address] 47624- 5482 07 Jul, 2016 Type 2 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 and Temporal headache R51 [facility] [address] 25696- 6810 06 Jul, 2016 Back pain M54.9 [place] [address] 95297- 8745 05 Jul, 2016 [facility] [address] 47301- 2669 Jul, [place] [address] 92417- 3522 30 Jun, 2016 Nausea R11.0 [facility] [address] 61341 -0600 23 Jun, 2016 Acute suppurative otitis media of both ears without spontaneous rupture of tympanic membranes, recurrence not specified H66.003 and COPD exacerbation J44.1 [facility] [address] 54333- 7000 Jun, Generalized anxiety disorder F41.1 [place] [address] 91833- 7697 16 Jun, 2016 [facility] [address] 99696 -7734 Jun, [facility] [address] 43870 -3459 Jun, Shortness of breath R06.02 and COPD exacerbation J44.1 [place] [address] 55006- 8138 10 Jun, 2016 Eczema, unspecified type L[address].9 [facility] [address] 02210- 3835 09 Jun, 2016 [facility] [address] 22669- 1634 May, [facility] [address] [id number] [place] [address] 96486- 1539 May, Muscle cramping R25.2 [facility] [address] [place] [id number] [place] [address] 71582- 5144 May, [facility] [address] 29044- 4794 Apr, Diarrhea R19.7 [facility] [address] 17776- 8447 Apr, [facility] [address] 73162- 7902 Apr, Chronic pain syndrome G89.4 [facility] [address] 03254- 2281 Apr, Cramp of both lower extremities R25.2 and Vascular dementia without behavioral disturbance F01.50 [facility] [address] [place] [id number] [place] [address] 00769- 3156 Apr, Type 2 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 and Cigarette nicotine dependence without complication F17.210 [facility] [id number] [place] [address] 28647- 5070 Mar, Generalized anxiety disorder F41.1 [facility] [address] [place] [id number] [place] [address] 91647- 8672 Feb, Generalized anxiety disorder F41.1 and Major depressive disorder, recurrent episode, moderate F33.1 [facility] [address] [id number] [place] [address] 40642- 4841 Feb, [facility] [facility] [address] [address] Feb, Dysuria R30.0 and Acute cystitis with hematuria N30.01 [place] [address] [address]57- 8171 Jan, [facility] [id number] [place] [address] 52920- [address] Jan, [facility] [id number] [place] [address] 27211- 8699 Jan, [facility] [id number] [place] [address] 28680- 5032 Jan, [facility] [id number] [place] [address] 35262 -2676 10 Jan, 2016 Wasp sting, accidental or unintentional, initial encounter T63.461A [place] [id number] [place] [address] 22385- 5676 06 Jan, 2016 Encounter for immunization Z23 [facility] [id number] [place] [address] 49538- 7772 05 Jan, 2016 [facility] [address] 28588- 2499 Jan, [facility] [id number] [place] [address] 75146- 5105 28 Dec, 2015 Generalized anxiety disorder F41.1 and Major depressive disorder, recurrent episode, moderate F33.1 [facility] [id number] [place] [address] 47495- 0860 21 Dec, 2015 Routine gynecological examination Z01.419 ; Postmenopausal Z78.0 ; Screening breast examination Z12.39 ; Osteopenia M85.80 and Breast cancer screening Z12.39 [facility] [address], [place] [address] 35[address] Dec, [facility] [id number] [place] [address] 89022- 1675 19 Dec, 2015 [facility] [id number] [place] [address] 30737- 7498 16 Dec, 2015 [facility] [id number] [place] [address] 44083- 4469 16 Dec, 2015 [facility] [address] [facility] [id number] [place] [address]- 8028 14 Dec, 2015 [facility] [address] [place] [address]- 85[address] Dec, [facility] [address] [place] [address]- 9927 Nov, [facility] [address], [place] [address] Nov, Cough R05 ; Other viral agents as the cause of diseases classified elsewhere B97.89 and Acute upper respiratory infection, unspecified J06.9 [facility] [address] [place] [address]- 1384 Nov, [facility] [address] [place] [address]- 59[address] Nov, [facility] [address] [place] [address]- [address] Nov, [facility] [address] [place] [address]- 4827 Nov, [facility] [address] [place] [address]- 0726 Nov, [facility] [address], [place] [address]- 2587 Oct, [facility] [address], [place] [address]- 6531 Oct, [facility] [address], [place] [address]- 6838 Oct, [facility] [address], [place] [address]- 4278 Oct, Chronic pain syndrome G89.4 [facility] [id number], [place] [address]- 0591 Sep, Generalized anxiety disorder F41.1 and Major depressive disorder, recurrent episode, moderate F33.1 [facility] [id number] [place] [address] 29370- 8159 Sep, [facility] [address] 18925- 5161 Sep, [facility] [id number] [place] [address] 50054- 3797 14 Sep, 2015 Generalized anxiety disorder F41.1 [place] [address] 63666- 6078 13 Sep, 2015 Cramp of both lower extremities R25.2 and Cervicalgia M54.2 [place] [address] 53593- 1100 06 Sep, 2015 Generalized anxiety disorder F41.1 [place] [id number] [place] [address] 23588- 0515 Sep, [facility] [id number] [place] [address] 90312 -2811 August, Rash R21 ; Itching L29.9 and Allergic response, subsequent encounter T78.40XD [place] [id number] [place] [address] 90484- 6182 August, Primary insomnia F51.01 [facility] [id number] [place] [address] 76412 -2961 August, Rash R21 ; Itching L29.9 and Allergic response, initial encounter T78.40XA [facility] [id number] [place] [address] 20308- 8690 August, [place] [id number] [place] [address] 78528- 8230 August, Cramp of both lower extremities R25.2 [place] [id number] [place] [address] 26549- 8898 August, Back pain M54.9 [place] [id number] [place] [address] 95619- 5643 August, [facility] [address], [place] [address]- 8754 August, [facility] [address], [place] [address] August, Cramp of both lower extremities R25.2 [facility] [address], [place] [address]- 4249 August, [facility] [address], [place] [address]- 0407 August, Syncope R55 ; Paroxysmal atrial fibrillation I48.0 ; Dementia without behavioral disturbance, unspecified dementia type F03.90 and Chronic pain syndrome G89.4 [facility] [address], [place] [address]- 2995 August, Type 2 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 [facility] [address], [place] [address]- 6984 Jul, [facility] [address], [place] [address]- 9479 Jul, [facility] [address], [place] [address]- 0098 Jul, [facility] [address], [place] [address]- 5990 Jul, [facility] [address], [place] [address]- 8165 Jul, [facility] [address], [place] [address]- 2738 Jul, UTI (urinary tract infection) N39.0 [facility] [address], [place] [address]- 7847 Jul, [facility] [address], [place] [address]- 7948 Jul, Major depressive disorder, recurrent episode, moderate F33.1 and Generalized anxiety disorder F41.1 [facility] [address], [place] [address]- 8724 14 Jul, 2015 Generalized anxiety disorder F41.1 [facility] [address], [place] [address]- 4320 14 Jul, [address] [facility] [address] [place] [address] 23524- 2673 14 Jul, 2015 [facility] [address], [place] [address]- 0176 Jun, [facility] [address] [place] [address] 75078- 3418 Jun, Eczema L30.9 [facility] [address], [place] [address]- 7606 Jun, [facility] [address], [place] [address]- 2501 Jun, COPD (chronic obstructive pulmonary disease) J44.9 [facility] [address], [place] [address]- [address] Jun, [facility] [address], [place] [address]- 4213 Jun, Major depressive disorder, recurrent episode, moderate F33.1 and Generalized anxiety disorder F41.1 [facility] [address], [place] [address]- 5593 May, [facility] [address] [place] [id number], [place] [address]- 8234 May, UTI (urinary tract infection) N39.0 [facility] [address], [place] [address]- 6367 17 May, 2015 [facility] [address], [place] [address]- 4403 08 May, 2015 [facility] [address], [place] [address]- 5265 May, [facility] [id number] [place] [address] 71115- 9383 May, [facility] [address], [place] [address]- 3031 Apr, Major depressive disorder, recurrent episode, moderate F33.1 and Generalized anxiety disorder F41.1 [facility] [address] [place] [address] 53541- 0280 Apr, COPD (chronic obstructive pulmonary disease) J44.9 [facility] [id number] [place] [address] 06489- 3971 Apr, [facility] [id number] [place] [address] 79083- 0168 Apr, Atrial flutter I48.92 [facility] [address], [place] [address]- 8949 Apr, [facility] [address] [place] [address] 57476- 6252 Apr, [facility] [address], [place] [address]- 3053 Mar, [facility] [address], [place] [address]- 9267 Mar, [facility] [address], [place] [address]- 6915 Mar, [facility] [address], [place] [address]- 9396 Mar, Hyperlipidemia E78.5 ; Type 2 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 ; Major depressive disorder, recurrent episode, moderate F33.1 and Chronic pain syndrome G89.4 [facility] [address], [place] [address]- 0468 Mar, [facility] [address] [facility] [id number], [place] [address]- 9447 Mar, [facility] [address], [place] [address]- 3757 Mar, [facility] [address] [facility] [id number], [place] [address]- 1469 Mar, [facility] [address] [place] [address] 69903- 4823 Feb, COPD (chronic obstructive pulmonary disease) J44.9 and Back pain M54.9 [facility] [address] [facility] [id number] [place] [address] 11405- 3977 Feb, [facility] [id number] [place] [address] 86885- 6635 Feb, [facility] [address] [place] [address] 67126- 8981 Feb, [facility] [address], [place] [address]- 7757 Feb, [facility] [id number] [place] [address] 03641- 8455 Feb, [facility] [address], [place] [address]- 8324 Feb, [facility] [address], [place] [address]- 8244 Feb, [facility] [address], [place] [address]- 4123 Feb, [facility] [address] [place] [address] 95793- 4299 Feb, Diabetes E11.9 ; Back pain M54.9 and COPD (chronic obstructive pulmonary disease) J44.9 [facility] [address], [place] [address]- 8116 Jan, [facility] [id number] [place] [address] 53950- 1694 Jan, Major depression, recurrent F33.9 and Generalized anxiety disorder F41.1 [facility] [id number] [place] [address] 26352- 9728 Jan, Chronic pain G89.29 [facility] [id number] [place] [address] 66953- 1075 Jan, [facility] [address] 33814- 6856 Jan, [facility] [id number] [place] [address] 10720- 5074 Jan, [facility] [id number] [place] [address] 25270- 0587 Jan, [facility] [id number] [place] [address] 57626- 4680 Jan, Nicotine dependence F17.200 [facility] [id number] [place] [address] 49976- 9208 Jan, Nicotine dependence F17.200 and Back pain M54.9 [facility] [id number] [place] [address] 72925- 4900 Jan, [facility] [id number] [place] [address] 57088- 2377 Dec, [facility] [id number] [place] [address] 42203- 2440 25 Dec, 2014 Anxiety, generalized 300.02 and Major depression, recurrent 296.30 [facility] [id number] [place] [address] 95677- 5927 [address], 2014 [facility] [id number] [place] [address] 44073- 6748 21 Dec, 2014 [facility] [id number] [place] [address] 43976- 7147 17 Dec, 2014 [facility] [address] [place] [address]- 4991 15 Dec, 2014 [facility] [id number] [place] [address] 21478- 4492 14 Dec, 2014 [facility] [id number] [place] [address] 25633- 1535 11 Dec, 2014 [facility] [id number] [place] [address] 01115- 0536 10 Dec, 2014 [facility] [id number] [place] [address] 58867- 8598 08 Dec, [address] [facility] [id number] [place] [address] 92394- 8389 08 Dec, 2014 Routine gynecological examination V72.31 ; Breast cancer screening V76.10 and Family history of breast cancer in first degree relative V16.3 [facility] [id number] [place] [address] 61502- 8588 Dec, [facility] [id number] [place] [address] 39512- 6894 Dec, [facility] [id number] [place] [address] 10952- 1780 Nov, [facility] [id number] [place] [address] 54108- 4659 Nov, [facility] [address] [place] [address] 59783- 0486 Nov, Poor balance 781.99 and Vascular dementia, uncomplicated 290.40 [facility] [id number] [place] [address] 74509- 5674 Nov, [facility] [id number] [place] [address] 55988- 8850 Nov, Major depression, recurrent 296.30 and Anxiety, generalized 300.02 [facility] [id number] [place] [address] 60578- 3297 Nov, [facility] [address], [place] [address]- 6481 Nov, [facility] [address], [place] [address]- 7991 Nov, [facility] [address], [place] [address]- 9411 Nov, [facility] [id number] [place] [address] 10769- 4383 Nov, Vascular dementia, uncomplicated 290.[address] [facility] [id number] [place] [address] 63180- 1640 Nov, [facility] [id number], [place] [address]- 5998 Nov, [facility] [id number] [place] [address] 99013- 4692 Nov, [facility] [address], [place] [address]- 5227 Oct, [facility] [address] [place] [address] 11636- 3202 Oct, [facility] [address], [place] [address]- 0516 Oct, [facility] [address], [place] [address]- 7085 Oct, COPD (chronic obstructive pulmonary disease) [address] [facility] [address], [place] [address]- 0752 Oct, Major depression, recurrent 296.30 and Anxiety, generalized 300.02 [facility] [address], [place] [address]- 6099 Oct, [facility] [address], [place] [address]- 9914 Oct, [facility] [id number], [place] [address]- 7252 Oct, [facility] [address] [place] [address] 13545- 9639 Sep, Lumbago 724.2 and Anxiety state, unspecified 300.00 [facility] [id number] [place] [address] 16779- 6534 Sep, [facility] [id number] [place] [address] 38026- 1733 Sep, [facility] [id number] [place] [address] 38144- 0172 August, [facility] [id number] [place] [address] 69843- 2303 August, Major depression, recurrent 296.30 ; Anxiety, generalized 300.02 and No condition on [place] II V71.09 [facility] [id number] [place] [address] 46268- 4504 August, [facility] [id number] [address]- 3845 August, [facility] [id number] [place] [address] 79297- 7651 Jul, [facility] [address], [place] [address]- 5529 Jul, [facility] [address], [place] [address]- 4917 Jul, [facility] [address], [place] [address]- 2807 Jun, [facility] [id number] [place] [address] 64716- 9491 Jun, [facility] [address], [place] [address]- 4149 Jun, [facility] [id number] [place] [address] 87875- 4360 27 Jun, 2014 [facility] [place] [facility] [address] [id number] [place] [address]- 7451 Jun, [facility] [place] [facility] [address] [id number] [place] [address]- 7796 Jun, [facility] [place] [facility] [address] [id number] [place] [address]- 4829 Jun, [facility] [place] [facility] [address] [id number] [place] [address]- 8639 17 Jun, 2014 [facility] [place] [facility] [address] [id number] [place] [address]- 1026 Jun, [facility] [place] [facility] [address] [id number] [place] [address]- 1696 Jun, [facility] [place] [facility] [address] [id number] [place] [address]- 3328 Jun, [facility] [place] [facility] [address] [id number] [place] [address]- 7896 Jun, [facility] [place] [facility] [address] [id number] [place] [address]- 9772 Jun, [facility] [place] [facility] [address] [id number] [place] [address]- 5345 Jun, [facility] [place] [facility] [address] [id number] [place] [address]- 3590 Jun, [facility] [place] [facility] [address] [id number] [place] [address]- 6484 Jun, [facility] [place] [facility] [address] [id number] [place] [address]- 2038 May, [facility] [place] [facility] [address] [id number] [place] [address]- 9976 May, [facility] [place] [facility] [address] [id number] [place] [address]- 4006 May, [facility] [place] [facility] [address] [id number] [place] [address]- 5944 May, 2014 [facility] [place] [facility] [address] [id number] [place] [address]- 1076 May, 2014 [facility] [place] [facility] [address] [id number] [place] [address]- 2546 May, 2014 [facility] [place] [facility] [address] [id number] [place] [address]- 6136 May, 2014 [facility] [place] [facility] [address] [id number] [place] [address]- 2542 May, 2014 [facility] [place] [facility] [address] [id number] [place] [address]- 4506 May, 2014 [facility] [place] [facility] [address] [facility] [id number] [place] [address]- 9373 May, 2014 [facility] [place] [facility] [address] [facility] [id number] [place] [address]- 7682 May, 2014 [facility] [place] [facility] [address] [facility] [id number] [place] [address]- 9514 May, 2014 [facility] [place] [facility] [address] [facility] [id number] [place] [address]- 8756 May, [facility] [place] [facility] [address] [facility] [id number], [place] [address]- 1698 May, [facility] [place] [facility] [address] [facility] [id number], [place] [address]- 8053 Apr, [facility] [place] [facility] [address] [id number] [place] [address]- 2541 Apr, [facility] [place] [facility] [address] [facility] [id number], [place] [address]- 5926 Apr, [facility] [place] [facility] [address] [facility] [id number], [place] [address]- 4076 Apr, [facility] [place] [facility] [address] [facility] [id number], [place] [address]- 2203 Apr, [facility] [address] [id number] [place] [address] Apr, [facility] [place] [facility] [address] [id number] [place] [address] Apr, [facility] [place] [facility] [address] [facility] [place] [id number] [place] [address] Apr, [facility] [place] [facility] [address] [id number] [place] [address] Apr, [facility] [place] [facility] [address] [id number] [place] [address] Apr, [facility] [place] [facility] [address] [id number] [place] [address] Apr, [facility] [address] [facility] [place] [id number] [place] [address] Apr, [facility] [place] [facility] [address] [id number] [place] [address] Mar, [facility] [place] [facility] [address] [id number] [place] [address] Mar, [facility] [place] [facility] [address] [facility] [place] [id number] [place] [address] Mar, [facility] [place] [facility] [address] [id number] [place] [address] 30 Mar, 2014 [facility] [place] [facility] [address] [id number] [place] [address] Mar, [facility] [place] [facility] [address] [id number] [place] [address] Mar, [facility] [place] [facility] [address] [facility] [place] [id number] [place] [address]- [address] Mar, [facility] [place] [facility] [address] [facility] [place] [id number] [place] [address]- [address] Mar, [facility] [place] [facility] [address] [id number] [place] [address]- [address] 15 Mar, 2014 [facility] [place] [facility] [address] [id number] [place] [address] 15 Mar, 2014 [facility] [place] [facility] [address] [id number] [place] [address] Mar, [facility] [place] [facility] [address] [id number] [place] [address]- [address] 15 Mar, 2014 [facility] [place] [facility] [address] [id number] [place] [address]- [address] 15 Mar, 2014 [facility] [place] [facility] [address] [id number] [place] [address]- [address] Mar, [facility] [place] [facility] [address] [id number] [place] [address]- [address] Mar, [facility] [place] [facility] [address] [id number] [place] [address]- [address]275 Mar, [facility] [place] [facility] [address] [id number] [place] [address]- [address] Mar, [facility] [place] [facility] [address] [id number] [place] [address]- [address]94 Mar, [facility] [place] [facility] [address] [id number] [place] [address] Mar, [facility] [place] [facility] [address] [id number] [place] [address]- [address] Mar, [facility] [place] [facility] [address] [id number] [place] [address] Feb, [facility] [place] [facility] [address] [id number] [place] [address]- [address] Feb, [facility] [place] [facility] [address] [id number] [place] [address]- [address] Feb, [facility] [place] [facility] [address] [id number] [place] [address] Feb, [facility] [place] [facility] [address] [id number] [place] [address]- [address] Feb, [facility] [place] [facility] [address] [id number] [place] [address]- [address] Feb, [facility] [place] [facility] [address] [id number] [place] [address]- [address] Feb, [facility] [place] [facility] [address] [id number] [place] [address]- 96[address] Feb, [facility] [place] [facility] [address] [id number] [place] [address]- [address] Feb, [facility] [place] [facility] [address] [id number] [place] [address]- [address] Feb, [facility] [place] [facility] [address] [id number] [place] [address]- [address] Feb, [facility] [place] [facility] [address] [id number], [place] [address]- [address] Feb, [facility] [place] [facility] [address] [id number] [place] [address]- [address] Feb, [facility] [place] [facility] [address] [id number] [place] [address]- [address] Feb, [facility] [place] [facility] [address] [id number], [place] [address] Feb, [facility] [place] [facility] [address] [id number], [place] [address]- [address] Feb, [facility] [place] [facility] [address] [id number], [place] [address]- [address] Feb, [facility] [place] [facility] [address] [id number], [place] [address] Jan, [facility] [place] [facility] [address] [id number], [place] [address] Jan, [facility] [place] [facility] [address] [id number] [place] [address] 3488 Jan, [facility] [place] [facility] [address] [id number] [place] [address]- 3318 Jan, [facility] [place] [facility] [address] [id number] [place] [address]- 2450 Jan, [facility] [place] [facility] [address] [id number] [place] [address]- 7984 Jan, [facility] [place] [facility] [address] [id number] [place] [address]- 7335 Jan, [facility] [place] [facility] [address] [id number] [place] [address]- 6786 Jan, [facility] [place] [facility] [address] [id number] [place] [address]- 9519 Jan, [facility] [place] [facility] [address] [id number] [place] [address]- 0420 Jan, [facility] [place] [facility] [address] [id number] [place] [address]- 7381 Jan, [facility] [place] [facility] [address] [id number] [place] [address]- 3370 Dec, [facility] [place] [facility] [address] [id number] [place] [address]- 7199 Dec, [facility] [place] [facility] [address] [id number] [place] [address]- 0984 Nov, [facility] [place] [facility] [address] [id number] [place] [address]- 1022 Nov, [facility] [place] [facility] [address] [id number] [place] [address]- 7925 Nov, [facility] [place] [facility] [address] [id number] [place] [address]- 3907 Nov, [facility] [place] [facility] [address] [id number] [place] [address]- 9118 Nov, [facility] [place] [facility] [address] [id number] [place] [address]- 9610 Nov, [facility] [place] [facility] [address] [id number] [place] [address]- 6267 Nov, [facility] [place] [facility] [address] [id number] [place] [address]- 4141 Oct, [facility] [place] [facility] [address] [id number] [place] [address]- 6886 Oct, [facility] [place] [facility] [address] [id number] [place] [address]- 9816 Oct, [facility] [place] [facility] [address] [id number] [place] [address]- 7858 Oct, [facility] [place] [facility] [address] [id number] [place] [address]- 1209 Sep, [facility] [place] [facility] [address] [id number] [place] [address]- 3951 Sep, [facility] [place] [facility] [address] [id number] [place] [address]- 5433 Sep, [facility] [place] [facility] [address] [id number] [place] [address]- 4136 Sep, [facility] [place] [facility] [address] [id number] [place] [address]- 8250 Sep, [facility] [place] [facility] [address] [id number] [place] [address]- 2091 Sep, [facility] [place] [facility] [address] [id number] [place] [address]- 2012 Sep, [facility] [place] [facility] [address] [id number] [place] [address]- 5431 Sep, [facility] [place] [facility] [address] [id number] [place] [address]- 7029 Sep, [facility] [place] [facility] [address] [id number] [place] [address]- 4129 Sep, [facility] [place] [facility] [address] [id number] [place] [address]- 5702 Sep, [facility] [place] [facility] [address] [id number] [place] [address]- 2918 Sep, [facility] [place] [facility] [address] [id number] [place] [address]- 1553 Sep, [facility] [place] [facility] [address] [id number] [place] [address]- 8631 Sep, [facility] [place] [facility] [address] [id number] [place] [address]- 1324 August, [facility] [place] [facility] [address] [id number] [place] [address]- 9975 August, [facility] [place] [facility] [address] [id number] [place] [address]- 7532 August, [facility] [place] [facility] [address] [id number] [place] [address]- 9679 August, [facility] [place] [facility] [address] [id number] [place] [address]- 9762 August, [facility] [place] [facility] [address] [id number] [place] [address]- 2276 August, [facility] [place] [facility] [address] [id number] [place] [address]- 5141 August, [facility] [place] [facility] [address] [id number] [place] [address]- 9794 August, [facility] [place] [facility] [address] [id number] [place] [address]- 9624 August, [facility] [place] [facility] [address] [id number] [place] [address]- 5067 August, [facility] [place] [facility] [address] [id number] [place] [address]- 3474 August, [facility] [place] [facility] [address] [id number] [place] [address]- [address], [facility] [address] [id number] [place] [address]- 7929 August, [facility] [address] [id number] [place] [address]- 8943 August, [facility] [address] [id number] [place] [address]- [address] August, [facility] [address] [id number] [place] [address]- [address] August, [facility] [address] [id number] [place] [address]- 6709 August, [facility] [address] [id number] [place] [address]- [address] August, [facility] [address] [id number] [place] [address]- 9499 August, [facility] [address] [id number] [place] [address]- [address] Jul, [facility] [address] [id number] [place] [address]- 0367 Jul, [facility] [address] [id number] [place] [address]- 5673 Jul, [facility] [place] [facility] [address] [id number] [place] [address]- 3754 Jul, [facility] [address] [id number] [place] [address]- 1261 Jun, [facility] [place] [facility] [address] [id number] [place] [address]- 1583 Jun, [facility] [place] [facility] [address] [id number] [place] [address]- 6574 Jun, [facility] [place] [facility] [address] [id number] [place] 1271 Jun, [facility] [place] [facility] [address] [id number] [place] [address]- 8833 17 Jun, 2013 [facility] [place] [facility] [address] [id number] [place] [address]- 3606 17 Jun, 2013 [facility] [place] [facility] [address] [id number] [place] [address]- 6531 14 Jun, 2013 [facility] [place] [facility] [address] [id number] [place] [address]- 5564 14 Jun, 2013 [facility] [place] [facility] [address] [id number] [place] [address]- 5759 Jun, [facility] [place] [facility] [address] [id number] [place] [address]- 8985 Jun, [facility] [place] [facility] [address] [id number] [place] [address]- 4092 27 May, 2013 [facility] [place] [facility] [address] [id number] [place] [address]- 4666 May, [facility] [place] [facility] [address] [id number] [place] [address]- 5570 May, [facility] [place] [facility] [address] [id number] [place] [address]- 3863 May, [facility] [place] [facility] [address] [id number] [place] [address]- 7639 May, [facility] [place] [facility] [address] [id number] [place] [address]- 7202 May, [facility] [place] [facility] [address] [id number] [place] [address]- 7718 May, [facility] [place] [facility] [address] [id number] [place] [address]- 1309 May, [facility] [place] [facility] [address] [id number] [place] [address]- 0755 May, [facility] [place] [facility] [address] [id number] [place] [address]- 9503 18 May, 2013 [facility] [place] [facility] [address] [id number] [place] [address]- 7716 May, [facility] [place] [facility] [address] [id number] [place] [address]- 4456 17 May, 2013 [facility] [place] [facility] [address] [id number] [place] [address]- 1186 May, [facility] [place] [facility] [address] [id number] [place] [address]- 0116 May, [facility] [place] [facility] [address] [id number] [place] [address]- 3636 May, [facility] [place] [facility] [address] [facility] [id number] [place] [address]- 6739 May, [facility] [place] [facility] [address] [id number] [place] [address]- 0158 May, [facility] [place] [facility] [address] [id number] [place] [address]- 8364 Apr, [facility] [place] [facility] [address] [facility] [id number] [place] [address]- 6988 Apr, [facility] [place] [facility] [address] [facility] [id number] [place] [address]- 0548 Apr, [facility] [place] [facility] [address] [id number], [place] [address]- 8310 Apr, [facility] [place] [facility] [address] [id number] [place] [address]- 7103 Apr, [facility] [place] [facility] [address] [id number] [place] [address]- 5571 Apr, [facility] [place] [facility] [address] [id number] [place] [address]- 1758 Apr, [facility] [place] [facility] [address] [id number] [place] [address]- 3913 Mar, [facility] [address] [id number] [place] [address]- 4096 Mar, [facility] [place] [facility] [address] [id number] [place] [address]- 4596 Mar, [facility] [place] [facility] [address] [id number] [place] [address]- 1926 Mar, [facility] [place] [facility] [address] [id number] [place] [address]- 7224 Mar, [facility] [address] [id number] [place] [address]- 3539 Mar, [facility] [place] [facility] [address] [id number] [place] [address]- 5539 Mar, [facility] [address] [id number] [place] [address]- 8483 Mar, [facility] [place] [facility] [address] [id number] [place] [address]- 4754 Mar, [facility] [place] [facility] [address] [id number] [place] [address]- 0247 Mar, [facility] [place] [facility] [address] [id number] [place] [address]- 4275 Mar, [facility] [place] [facility] [address] [id number], [place] [address]- 7844 Feb, [facility] [place] [facility] [address] [id number], [place] [address]- 2359 Feb, [facility] [place] [facility] [address] [id number] [place] [address]- 6225 Feb, [facility] [place] [facility] [address] [id number] [place] [address]- 3041 Feb, [facility] [place] [facility] [address] [id number] [place] [address]- 5903 Feb, [facility] [place] [facility] [address] [id number] [place] [address]- 3857 19 Feb, 2013 [facility] [address] [id number] [place] [address]- 1109 15 Feb, 2013 [facility] [place] [facility] [address] [id number] [place] [address]- 4038 14 Feb, 2013 [facility] [place] [facility] [address] [id number] [place] [address]- 3813 14 Feb, 2013 [facility] [place] [facility] [address] [id number] [place] [address]- 0252 13 Feb, 2013 [facility] [place] [facility] [address] [id number] [place] [address]- 0105 13 Feb, 2013 [facility] [place] [facility] [address] [id number] [place] [address]- 4406 12 Feb, 2013 [facility] [place] [facility] [address] [id number] [place] [address]- 4051 Feb, [facility] [address] [id number] [place] [address]- 4361 Feb, [facility] [place] [facility] [address] [id number] [place] [address]- 2988 Feb, [facility] [place] [facility] [address] [id number] [place] [address]- 9664 Feb, [facility] [place] [facility] [address] [id number] [place] [address]- 8429 Jan, [facility] [place] [facility] [address] [id number], [place] [address]- 9495 Jan, [facility] [place] [facility] [address] [id number] [place] [address]- 6856 Jan, [facility] [place] [facility] [address] [id number] [place] [address]- 3326 Jan, [facility] [place] [facility] [address] [id number] [place] [address]- 0295 Jan, [facility] [place] [facility] [address] [id number] [place] [address]- 4331 Jan, [facility] [place] [facility] [address] [id number] [place] [address]- 4688 Jan, [facility] [place] [facility] [address] [id number] [place] [address]- 7624 Jan, [facility] [place] [facility] [address] [id number] [place] [address]- 6489 10 Jan, 2013 [facility] [place] [facility] [address] [id number] [place] [address]- 4440 27 Dec, 2012 [facility] [place] [facility] [address] [id number] [place] [address]- 7730 20 Dec, 2012 [facility] [place] [facility] [address] [id number] [place] [address]- 8091 19 Dec, 2012 [facility] [place] [facility] [address] [id number] [place] [address]- 3725 10 Dec, 2012 [facility] [place] [facility] [address] [id number] [place] [address]- 0625 04 Dec, 2012 [facility] [place] [facility] [address] [id number] [place] [address]- 4606 Dec, [facility] [place] [facility] [address] [id number] [place] [address]- 2221 Nov, [facility] [place] [facility] [address] [id number] [place] [address]- 5422 Nov, [facility] [place] [facility] [address] [id number] [place] [address]- 6349 Nov, [facility] [place] [facility] [address] [id number] [place] [address]- 4648 Nov, [facility] [place] [facility] [address] [id number] [place] [address]- 8646 Nov, [facility] [place] [facility] [address] [id number] [place] [address]- 3221 Nov, [facility] [address] [id number] [place] [address]- 1614 Nov, [facility] [place] [facility] [address] [id number] [place] [address]- 0265 Nov, [facility] [place] [facility] [address] [id number] [place] [address]- 5536 Nov, [facility] [place] [facility] [address] [id number] [place] [address]- 5525 Nov, [facility] [place] [facility] [address] [id number] [place] [address]- 2145 Oct, [facility] [place] [facility] [address] [id number] [place] [address]- 9417 Oct, [facility] [place] [facility] [address] [id number] [place] [address]- 7547 Oct, [facility] [place] [facility] [address] [id number] [place] [address]- 0953 Oct, [facility] [place] [facility] [address] [id number] [place] [address]- 5601 Oct, [facility] [place] [facility] [address] [id number] [place] [address]- 7791 Oct, [facility] [place] [facility] [address] [id number] [place] [address]- 3565 Oct, [facility] [place] [facility] [address] [id number] [place] [address]- 6560 Oct, [facility] [place] [facility] [address] [id number] [place] [address]- 6149 Sep, [facility] [place] [facility] [address] [id number] [place] [address]- 4964 Sep, [facility] [place] [facility] [address] [id number] [place] [address]- 6126 Sep, [facility] [place] [facility] [address] [id number] [place] [address]- 5260 Sep, [facility] [address] [id number] [place] [address]- 3829 Sep, [facility] [place] [facility] [address] [id number] [place] [address]- 3875 Sep, [facility] [address] [id number] [place] [address]- 2564 Sep, [facility] [place] [facility] [address] [id number] [place] [address]- 0263 Sep, [facility] [place] [facility] [address] [id number] [place] [address]- 2777 August, [facility] [address] [id number] [place] [address]- [address], [facility] [address] [id number] [place] [address]- [address] August, [facility] [address] [id number] [place] [address]- 3709 August, [facility] [address] [id number] [place] [address]- 9538 August, [facility] [address] [id number] [place] [address]- 5208 Jul, [facility] [place] [facility] [address] [id number] [place] [address]- 6773 Jul, [facility] [place] [facility] [address] [id number] [place] [address]- 0872 Jul, [facility] [place] [facility] [address] [id number] [place] [address]- 9590 Jul, [facility] [place] [facility] [address] [id number] [place] [address]175 Jul, [facility] [place] [facility] [address] [id number] [place] [address]- 8723 18 Jun, 2012 [facility] [address] [id number] [place] [address]- 9224 18 Jun, 2012 [facility] [place] [facility] [address] [id number] [place] [address]- 7069 15 Jun, 2012 [facility] [place] [facility] [address] [id number] [place] [address]- 5870 14 Jun, 2012 [facility] [place] [facility] [address] [id number] [place] [address]- 3482 12 Jun, 2012 [facility] [place] [facility] [address] [id number] [place] [address]- 5451 08 Jun, 2012 [facility] [place] [facility] [address] [id number] [place] [address]- 9488 08 Jun, 2012 [facility] [place] [facility] [address] [id number] [place] [address]- 8129 Jun, [facility] [place] [facility] [address] [id number] [place] [address]- 9829 Jun, [facility] [place] [facility] [address] [id number] [place] [address]- 8441 27 May, 2012 [facility] [place] [facility] [address] [id number] [place] [address]- 5353 May, [facility] [place] [facility] [address] [id number] [place] [address]- 8450 May, [facility] [place] [facility] [address] [id number] [place] [address]- 9979 May, [facility] [place] [facility] [address] [id number] [place] [address]- 1547 Apr, [facility] [place] [facility] [address] [id number] [place] [address]- 6764 Apr, [facility] [place] [facility] [address] [id number] [place] [address]- 2943 Apr, [facility] [place] [facility] [address] [id number] [place] [address]- 8433 Apr, [facility] [address] [id number] [place] [address]- 3803 Apr, [facility] [address] [id number] [place] [address]- 6332 Apr, [facility] [address] [id number] [place] [address]- 5339 Apr, [facility] [address] [id number] [place] [address] Mar, [facility] [address] [place] [id number] Mar, [facility] [address] [id number] [place] [address] Mar, [facility] [address] [id number] [place] [address] Mar, [facility] [address] [id number] [place] [address] Mar, [facility] [address] [id number] [place] [address] Mar, [facility] [address] [id number] [place] [address] Mar, [facility] [address] [id number] [place] [address] Mar, [facility] [address] [id number] [place] [address] Mar, [facility] [address] [id number] [place] [address] Mar, [facility] [address] [id number] [place] [address] Mar, [facility] [address] [id number] [place] [address] Mar, [facility] [place] [facility] [address] [id number] [place] [address] Mar, [facility] [place] [facility] [address] [id number] [place] [address] Mar, [facility] [place] [facility] [address] [id number] [place] [address] Mar, [facility] [place] [facility] [address] [id number] [place] [address] Mar, [facility] [place] [facility] [address] [id number] [place] [address] Mar, [facility] [place] [facility] [address] [id number] [place] [address] Feb, [facility] [place] [facility] [address] [id number] [place] [address] Feb, [facility] [place] [facility] [address] [id number] [place] [address]- [address] Feb, [facility] [place] [facility] [address] [id number] [place] [address] Feb, [facility] [place] [facility] [address] [id number] [place] [address] Feb, [facility] [place] [facility] [address] [id number] [place] [address] Feb, [facility] [place] [facility] [address] [id number] [place] [address] Feb, [facility] [place] [facility] [address] [id number] [place] [address]18 Feb, [facility] [place] [facility] [address] [id number] [place] [address] Feb, [facility] [place] [facility] [address] [id number] [place] [address] Feb, [facility] [place] [facility] [address] [id number] [place] [address] 134[address] Feb, [facility] [place] [facility] [address] [id number] [place] [address] Feb, [facility] [place] [facility] [address] [id number] [place] [address] Feb, [facility] [place] [facility] [address] [facility] [id number] [place] [address] Feb, [facility] [place] [facility] [address] [id number], [place] [address] Feb, [facility] [place] [facility] [address] [id number] [place] [address]61 Feb, [facility] [place] [facility] [address] [id number], [place] [address] Jan, [facility] [place] [facility] [address] [id number] [place] [address] Jan, [facility] [place] [facility] [address] [id number], [place] [address] Jan, [facility] [place] [facility] [address] [id number], [place] [address] Jan, [facility] [place] [facility] [address] [facility] [id number], [place] [address] Jan, [facility] [place] [facility] [address] [id number], [place] [address] Jan, [facility] [place] [facility] [address] [id number], [place] [address] Jan, [facility] [place] [facility] [address] [id number], [place] [address] Jan, [facility] [place] [facility] [address] [facility] [id number][place] [address] Jan, [facility] [place] [facility] [address] [facility] [id number][place] [address] Jan, [facility] [place] [facility] [address] [id number] [place] [address] 12 Jan, 2012 [facility] [place] [facility] [address] [id number] [place] [address] 8616 Jan, [facility] [place] [facility] [address] [id number] [place] [address] 8416 Jan, [facility] [place] [facility] [address] [id number] [place] [address] Jan, [facility] [place] [facility] [address] [id number] [place] [address] 08 Jan, 2012 [facility] [place] [facility] [address] [id number] [place] [address]- [address]44 05 Jan, 2012 [facility] [place] [facility] [address] [id number] [place] [address]- [address]706 04 Jan, 2012 [facility] [place] [facility] [address] [id number] [place] [address]- 6538 21 Dec, 2011 [facility] [place] [facility] [address] [id number] [place] [address]- [address]471 20 Dec, 2011 [facility] [place] [facility] [address] [id number] [place] [address] 2547 18 Dec, 2011 [facility] [place] [facility] [address] [id number] [place] [address]- [address]40 18 Dec, 2011 [facility] [place] [facility] [address] [id number] [place] [address] 2546 10 Dec, 2011 [facility] [place] [facility] [address] [id number] [place] [address]- [address]40 10 Dec, 2011 [facility] [place] [facility] [address] [id number] [place] [address] 2546 10 Dec, 2011 [facility] [place] [facility] [address] [id number] [place] [address]- [address]46 07 Dec, 2011 [facility] [place] [facility] [address] [id number] [place] [address]- 1377 Nov, [facility] [place] [facility] [address] [id number] [place] [address]- 2759 Nov, [facility] [place] [facility] [address] [id number] [place] [address]- 8895 Nov, [facility] [place] [facility] [address] [id number] [place] [address]- 7852 Nov, [facility] [place] [facility] [address] [id number] [place] [address]- [address] Nov, [facility] [place] [facility] [address] [id number] [place] [address]- [address]674 Nov, [facility] [place] [facility] [address] [id number] [place] [address]- [address]177 Oct, [facility] [place] [facility] [address] [id number] [place] [address]- [address]336 Oct, [facility] [place] [facility] [address] [id number] [place] [address]- 5840 Oct, [facility] [place] [facility] [address] [id number] [place] [address]- 7060 Oct, [facility] [place] [facility] [address] [id number] [place] [address]- 3424 Oct, [facility] [place] [facility] [address] [id number] [place] [address]- [address]347 Oct, [facility] [place] [facility] [address] [id number] [place] [address]- 0476 Oct, [facility] [place] [facility] [address] [id number] [place] [address]- [address]652 Sep, [facility] [place] [facility] [address] [id number] [place] [address]- 7926 Sep, [facility] [place] [facility] [address] [id number] [place] [address]- 2656 Sep, [facility] [place] [facility] [address] [id number] [place] [address]- 6370 20 Sep, 2011 [facility] [place] [facility] [address] [id number] [place] [id number] 19 Sep, 2011 [facility] [place] [facility] [address] [id number] [place] [address] 15 Sep, 2011 [facility] [place] [facility] [address] [id number] [place] [address] 14 Sep, 2011 [facility] [place] [facility] [address] [id number] [place] [address] Sep, [facility] [place] [facility] [address] [id number] [place] [address] 05 Sep, 2011 [facility] [place] [facility] [address] [id number] [place] [address] 04 Sep, 2011 [facility] [place] [facility] [address] [id number] [place] [address] August, [facility] [place] [facility] [address] [id number] [place] [address] August, [facility] [place] [facility] [address] [id number] [place] [address] August, [facility] [place] [facility] [address] [id number] [place] [address] August, [facility] [place] [facility] [address] [id number] [place] [address] August, [facility] [place] [facility] [address] [id number] [place] [address] Jul, [facility] [place] [facility] [address] [id number] [place] [address] Jul, [facility] [place] [facility] [address] [id number] [place] [address] 4[address] Jul, [facility] [place] [facility] [address] [id number] [place] [address] 8130 17 Jul, 2011 [facility] [place] [facility] [address] [id number] [place] [address] Jul, [facility] [place] [facility] [address] [id number] [place] [address] 7061 Jul, [facility] [place] [facility] [address] [id number] [place] [address] Jul, [facility] [place] [facility] [address] [id number] [place] [address]- 80[address] Jun, [facility] [place] [facility] [address] [id number] [place] [address] Jun, [facility] [place] [facility] [address] [id number] [place] [address]- [address] Jun, [facility] [place] [facility] [address] [facility] [id number] [place] [address]107 Jun, [facility] [place] [facility] [address] [id number] [place] [address] 9651 Jun, [facility] [place] [facility] [address] [id number] [place] [address]358 May, [facility] [place] [facility] [address] [facility] [id number] [place] [address] May, [facility] [place] [facility] [id number] [place] [address] May, [facility] [place] [facility] [address] [facility] [id number] [place] [address] 2048 May, [facility] [place] [facility] [address] [facility] [id number] [place] [address]- 6925 May, [facility] [place] [facility] [address] [id number] [place] [address]- 1228 May, [facility] [place] [facility] [address] [facility] [id number] [place] [address]- 7819 Apr, [facility] [place] [facility] [id number] [place] [address] 29 Mar, 2011 [facility] [place] [facility] [address] [id number] [place] [address] Feb, [facility] [place] [facility] [address] [id number] [place] [address] Feb, [facility] [place] [facility] [address] [id number] [place] [address]- 5590 Feb, [facility] [place] [facility] [address] [id number] [place] [address]- 3030 Feb, [facility] [place] [facility] [address] [id number] [place] [address]- 2008 Jan, [facility] [place] [facility] [address] [id number] [place] [address]- 0942 Jan, [facility] [place] [facility] [address] [id number] [place] [address]- 3782 Jan, [facility] [place] [facility] [address] [id number] [place] [address]- 6[address] 24 Jan, 2011 [facility] [place] [facility] [address] [id number] [place] [address]- 1132 14 Jan, 2011 [facility] [place] [facility] [address] [id number] [place] [address] 8145 Dec, [facility] [place] [facility] [address] [id number] [place] [address] 6929 Oct, [facility] [place] [facility] [address] [id number] [place] [address] 7140 August, [facility] [place] [facility] [address] [id number] [place] [address] 1396 Mar, [facility] [place] [facility] [address] [id number] [place] [address] 8533 27 Mar, 2010 [facility] [place] [facility] [address] [id number] [place] [address] 3167 16 Mar, 2010 [facility] [place] [facility] [address] [id number] [place] [address]- 8779 15 Mar, 2010 [facility] [address] [id number] [place] [address]- 5131 15 Mar, 2010 [facility] [place] [facility] [address] [id number] [place] [address]- 4766 08 Mar, 2010 [facility] [address] [id number] [place] [address]- 1002 Mar, [facility] [place] [facility] [address] [id number] [place] [address]- 6864 Feb, [facility] [address] [id number] [place] [address]- 2433 Feb, [facility] [address] [id number] [place] [address]- 6708 Feb, [facility] [address] [id number] [place] [address]- 7585 Jan, [facility] [address] [id number] [place] [address]- 2640 Jan, [facility] [address] [id number] [place] [address]- 3888 Jan, [facility] [address] [facility] [id number] [place] [address]- [address] Nov, [facility] [place] [facility] [address] [id number] [place] [address] 7711 14 Sep, 2009 [facility] [address] [id number] [place] [address]- 9836 August, [facility] [place] [facility] [address] [id number] [place] [address]- 9768 30 Mar, 2009 [facility] [place] [facility] [address] [id number] [place] [address]- 2546 Mar, [facility] [place] [facility] [address] [id number] [place] [address] Feb, [facility] [address] [address] 113[address] Feb, [facility] [id number] [address] Feb, [facility] [address] [address] Feb, [facility] [address] [facility] [id number] [address] Feb, [facility] [id number] [address] Jan, [facility] [id number] [address] Jan, [facility] [id number] [address] 2976 Jan, [facility] [id number] [address] Jan, [facility] [address] [address] Nov, [facility] [id number] [address] Sep, [facility] [address] [address] August, [facility] [address] [place] [address] Jul, [facility] [address] [id number] [address] May, IMMUNIZATIONS No Known Immunizations SOCIAL HISTORY Never Assessed REASON FOR VISIT Annual physical (female)-SHAHLA Scherer PLAN OF CARE Activity Details Follow Up 1 Year, prn Reason: VITAL SIGNS Height 64 in 2017-09-22 Weight 149.1 lbs 2017-09-22 Temperature 98.5 degrees Fahrenheit 2017-09-22 Heart Rate 72 bpm 2017-09-22 Respiratory Rate 18 2017-09-22 BMI 25.59 kg/m2 2017-09-22 Blood pressure systolic 94 mmHg 2017-09-22 Blood pressure diastolic 64 mmHg 2017-09-22 MEDICATIONS Medication Instructions Dosage Frequency Start Date End Date Duration Status Zofran ODT 4 mg Orally every 4 hrs PRN 1 tablet on the tongue and allow to dissolve Jul, Active Sumatriptan Succinate 100 MG Orally Twice a day 1 tablet as needed 12h Active Polyethylene Glycol 3350 - Orally in water or juice Once a day in the pm 17 grams Jul, 30 days Not-Taking Oxybutynin Chloride ER 10 MG Orally Once a day 1 tablet 24h Active Eliquis 5 MG Orally 2 times a day 12h Active Nitroglycerin 0.4 MG Active Melatonin 5 MG Orally Once a day 1 tablet at bedtime as needed with food 24h Jun, 30 day(s) Not-Taking Abilify 10 MG Orally Once a day 1 tablet 24h Active Ventolin HFA 108 (90 Base) MCG/ACT INHALE 2 PUFFS EVERY 4 HOURS NEEDED 16 Active Spiriva HandiHaler 18 MCG Inhalation Once a day 1 capsule 24h Active Singulair 10 MG TAKE 1 TABLET ONE TIME DAILY 90 Active Remeron 45 MG Orally Once a day at bedtime 1 tablet Feb, Active Glucometer 1 test blood sugar Jul, Active Namenda 10 MG TAKE 1 TABLET EVERY DAY Active Alendronate Sodium 70 MG TAKE 1 TABLET EVERY WEEK Active Farxiga 5 mg Orally Once a day 1 tablet 24h 23 Jul, 2017 Oct, 30 day(s) Active Ropinirole HCl 2 MG TAKE 1 TABLET ONE TIME DAILY AT BEDTIME 90 Active Ranitidine HCl 150 MG Orally 2 times a day 1 tablet at bedtime 12h Active Neurontin 400 mg Orally Three times a day 1 capsule 8h August, 30 day(s) Active Lamictal 25 MG Orally every night 3 tablets Apr, Active Omeprazole 40 mg Orally 2 times a day 1 capsule 12h Active Vitamin D 50,000 Orally once a week 1 tablet Active BusPIRone HCl 5 MG Orally Three times a day 1 tablet 8h Active Magnesium 400 MG Orally Once a day 1 tablet 24h Active Trazodone HCl 150 MG Orally Once a day 1 tablet at bedtime 24h Active Pantoprazole Sodium 40 MG Orally 2 times a day 1 tablet 12h Active Benefiber - Active Baclofen 20 MG TAKE ONE TABLET BY MOUTH THREE TIMES DAILY WITH FOOD OR MILK 30 Active Naproxen 250 MG Orally Twice a day PRN migraines 1 tablet with food or milk Active Diltiazem HCl ER 240 MG Orally Once a day 1 capsule 24h Active Albuterol Sulfate 2.5 mg /3 mL (0.083 %) 1 Each by Inhalation route every 4 hours for cough and wheeze PRN for wheezing or cough Jun, Active Clonazepam 1 MG Orally Once a day 1 tablet 24h Active Symbicort 160-4.5 MCG/ACT INHALE 2 PUFFS TWICE DAILY, IN THE MORNING AND IN THE EVENING 90 Active Xifaxan 550 MG Orally Three times a day 1 tablet 8h Active Lomotil 2.5-0.025 mg Orally Four times a day PRN loose stools TWO TABLETS Active Sertraline HCl 100 MG Orally Once a day 1 tablet 24h Active Carafate 1 GM Orally 4 times a day PRN 1 tablet Active Welchol 625 MG Orally twice a day 2 tablets 12h Active Toprol XL 25 MG Orally Once a day 1 tablet 24h Active Oxygen 5 inhalation all the time Active Calcium Orally Once a day 1 tablet with D3 800 24h Active RESULTS No Results PROCEDURES Procedure Date Ordered Result Body Site [facility] September 22, 2017 Bacterial Vaginosis In House September 22, 2017 ANNUAL WELLNESS VST; PPS SUBSQT VST September 22, 2017 No Charge September 22, 2017 CRITICAL ACCESS H[facility]PITAL VISIT ESTABLISHED PATIENT September 22, 2017 INSTRUCTIONS MEDICATIONS ADMINISTERED No Known Medications [...] Hospitalization History Knee Surgery 07/16/17 Hospitalization History [facility]- left hand/wrist swelling 10/09/2017
--- OUTSIDE RECORDS SUMMARY | 2018-01-01 11:37 | XMS REPORT ---
Author Author SENAIT DUNLAP [facility] Address [address] [place] [address] Care Team Providers Care Local Area Network Systems Adminstrator Name Role Phone SENAIT DUNLAP Unavailable PROBLEMS Type Condition ICD9-CM Code TOC24-GQ Code Onset Dates Condition Status SNOMED Code Problem History of common bile duct surgery Z98.89 Active 834123386 Problem Barretts esophagus K22.70 Active 059483996 Problem 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 Active 75663885 Problem Colon polyp K63.5 Active 51463005 Problem Bilateral low back pain without sciatica M54.5 Active 171668472 Problem Screening breast examination Z12.39 Active 402270910 Problem Postmenopausal Z78.0 Active 15428847 Problem Osteopenia M85.80 Active 900864663 Problem Cigarette nicotine dependence without complication F17.210 Active 03698717 Problem Type 2 diabetes mellitus with diabetic peripheral angiopathy without gangrene E11.51 Active 042487771 Problem Vascular dementia without behavioral disturbance F01.50 Active 74507820325929206 Problem Unspecified atherosclerosis of n[place] arteries of extremities, unspecified extremity I70.209 Active 537772290277801 Problem Arthritis M19.90 Active 1340862 Problem Chronic atrial fibrillation I48.2 Active 199395211 Problem Chronic obstructive pulmonary disease with acute lower respiratory infection J44.0 Active 121248609 Problem Other chronic pancreatitis K86.1 Active 824099659 Problem Stress incontinence of urine N39.3 Active 04649732 Problem Controlled type 2 diabetes mellitus without complication, without long -term current use of insulin E11.9 Active 803747293 Problem Unspecified psychosis F29 Active 14939522 Problem Xeroderma Q80.9 Active 72752336 Problem COPD (chronic obstructive pulmonary disease) J44.9 Active 75358844 Problem Dementia without behavioral disturbance, unspecified dementia type F03.90 Active 51077908 Problem Gastroparesis K31.84 Active 570158151 Problem Type 2 diabetes mellitus with diabetic neuropathy, without long-term current use of insulin E11.40 Active 76179260 Problem Osteoporosis M81.0 Active 21299360 Problem Atherosclerosis of [place] artery of both lower extremities with intermittent claudication I70.213 Active 961996252490331 Problem Hyperlipidemia E78.5 Active 89592561 Problem Diabetic polyneuropathy associated with type 2 diabetes mellitus E11.42 Active 69172580 Problem Essential tremor G25.0 Active 94528254 Problem Atherosclerotic heart disease of n[place]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 I25.118 Active 5025992631981 Problem Generalized anxiety disorder F41.1 Active 994528621 Problem Gastroesophageal reflux disease, esophagitis presence not specified K21.9 Active 548016366 Problem Coronary artery disease involving n[place]qually coronary artery of n[place]ally 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 I25.118 Active 2504399207066 Problem Postconcussion syndrome F07.81 Active 04388052 Problem Chronic pain syndrome G89.4 Active 314555874 Problem Migraine without aura and without status migrainosus, not intractable G43.009 Active 967109072 Problem Paroxysmal atrial fibrillation I48.0 Active 914131229 Problem Migraine without aura and with status migrainosus, not intractable G43.001 Active 245165749 Problem Cervicalgia M54.2 Active 7525723943941 Problem Acute exacerbation of chronic obstructive pulmonary disease (COPD) J44.1 Active 580995914 Problem Major depressive disorder, recurrent episode, moderate F33.1 Active 070679894 Problem Crohn''s disease without complication, unspecified gastrointestinal tract location K50.90 Active 91831306 Problem Chronic fatigue R53.82 Active 63634313 Problem Bipolar affective disorder, currently depressed, moderate F31.32 Active 741495261 ALLERGIES No Information ENCOUNTERS Encounter Location Date Diagnosis [place] [address], [place] [address] Nov, [place] [address], [place] [address] Nov, [place] [address], [place] [address] Nov, Bronchitis J40 [place] [address], [place] [address] Oct, [place] [address], [place] [address] Oct, Bipolar affective disorder, currently depressed, moderate F31.32 ; Vascular dementia without behavioral disturbance F01.50 and Generalized anxiety disorder F41.1 [facility] [address], [place] [address] Oct, [facility] [address] [place] [id number] [place] [address] 72086- 6397 Oct, [facility] [address] [place] [id number] [place] [address] 16925- 2512 Oct, Edema of both legs R60.0 [facility] [address] [place] [id number] [place] [address] 62440- 7878 Oct, [facility] [address] [place] [id number] [place] [address] 80704- 3135 Sep, [facility] [address] [place] [id number] [place] [address] 34309- 2220 Sep, [facility] [address] [place] [id number] [place] [address] 11764- 3505 Sep, [facility] [address] [place] [id number] [place] [address] 80671- 9729 Sep, Encounter for well woman exam with routine gynecological exam Z01.419 ; Screening for STDs (sexually transmitted diseases) Z11.3 ; Screening breast examination Z12.31 and Overweight (BMI 25.0-29.9) E66.3 [facility] [address], [place] [address] 287[address] Sep, [facility] [address] [place] [id number] [place] [address] 38396- 8035 Sep, [facility] [address], [place] [address] 5497 Sep, [facility] [id number] [place] [address] 16643- 1353 August, [facility] [address], [place] [address] 7548 August, [facility] [address] [place] [id number] [place] [address] 21855- 7224 August, Type 2 diabetes mellitus with diabetic neuropathy, without long-term current use of insulin E11.40 and Sprain of right ankle, unspecified ligament, initial encounter S93.401A [facility] [address] [place] [id number] [place] [address] 77397- 2566 August, [facility] [id number] [place] [address] 84186- 9902 August, [facility] [address] [place] [id number] [place] [address] 41647- 2827 August, [facility] [address] [place] [id number] [place] [address] 56770- 3060 August, Gastroesophageal reflux disease, esophagitis presence not specified K21.9 [facility] [address] [place] [id number] [place] [address] 84629- 7848 August, [facility] [address] [place] [id number] [place] [address] 10738- 6612 August, [facility] [address], [place] [address] 8560 August, [facility] [id number] [place] [address] 23711- 5551 August, Type 2 diabetes mellitus with diabetic neuropathy, without long-term current use of insulin E11.40 and Elevated liver enzymes R74.8 [facility] [address], [place] [address]- 8187 Jul, [facility] [address] [place] [id number] [place] [address] 09967- 0037 Jul, Cough R05 [facility] [id number] [place] [address] 84649- 8585 Jul, [facility] [address] [place] [id number] [place] [address] 01424- 8947 Jul, [facility] [address] 44368- 9496 Jul, Bipolar affective disorder, currently depressed, moderate F31.32 ; Vascular dementia without behavioral disturbance F01.50 and Generalized anxiety disorder F41.1 [facility] [address] 29643- 4995 Jul, [facility] [address] 30479- 1481 Jul, Type 2 diabetes mellitus with diabetic neuropathy, without long-term current use of insulin E11.40 and Elevated liver enzymes R74.8 [facility] [address] [place] [id number] [place] [address] 05060- 4137 Jul, [facility] [address] 42714- 1743 Jul, [facility] [address] [place] [id number] [place] [address] 50278- 1199 Jul, [facility] [address] [address]- 1955 Jul, Post-menopausal Z78.0 [facility] [address] [place] [id number] [place] [address] 04591- 2316 Jul, Stress incontinence of urine N39.3 [facility] [address] [place] [id number] [place] [address] 44367- 3168 Jul, [facility] [address] [place] [id number] [place] [address] 17413- 0828 Jul, [facility] [address] [place] [id number] [place] [address] 19415- 1819 Jul, Stress incontinence of urine N39.3 and Cough R05 [facility] [address] [place] [id number] [place] [address] 12854- 1286 Jul, [facility] [address], [place] [address]- 6855 Jul, [facility] [address] [place] [id number] [place] [address] 28105- 2881 Jul, [facility] [address] [place] [id number] [place] [address] 47953- 5758 Jul, Gastroesophageal reflux disease, esophagitis presence not specified K21.9 [facility] [address] [place] [id number] [place] [address] 67270- 8110 Jun, Diabetic polyneuropathy associated with type 2 diabetes mellitus E11.42 [place] [address] [place] [id number] [place] [address] Jun, Diabetic polyneuropathy associated with type 2 diabetes mellitus E11.42 ; Coronary artery disease involving n[place] coronary artery of nisqually 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 I25.118 and Paroxysmal atrial fibrillation I48.0 [facility] [address] [place] [id number] [place] [address] 89462- 7707 Jun, [facility] [address] [place] [id number] [place] [address] 56195- 6342 Jun, [facility] [address] [place] [id number] [place] [address] 01734 2545 Jun, Gastroenteritis K52.9 [facility] [address] [place] [id number] [place] [address] 44403 2541 Jun, Gastroenteritis K52.9 [facility] [address] [place] [id number] [place] [address] 85115 2548 Jun, [facility] [address] [place] [address] 20678- 4857 Jun, [facility] [address] [place] [id number] [place] [address] 13505- 5909 Jun, Sprain of right ankle, unspecified ligament, initial encounter S93.401A ; Type 2 diabetes mellitus with diabetic neuropathy, without long-term current use of insulin E11.40 ; Atherosclerosis of [place] artery of both lower extremities with intermittent claudication I70.213 ; Atherosclerotic heart disease of [place]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 I25.118 ; Chronic atrial fibrillation I48.2 and Crohn''s disease without complication, unspecified gastrointestinal tract location K50.90 [facility] [id number] [place] [address] 56223 -1761 17 Jun, 2017 Chronic obstructive pulmonary disease with acute lower respiratory infection J44.0 and Cough R05 [facility] [address] [place] [id number] [place] [address] 39335- 1222 Jun, [place] [address] [place] [id number] [place] [address] 38354- 6310 Jun, Coughing R05 ; Unspecified atherosclerosis of n[place] arteries of extremities, unspecified extremity I70.209 ; Type 2 diabetes mellitus with diabetic peripheral angiopathy without gangrene E11.51 ; Crohn''s disease without complication, unspecified gastrointestinal tract location K50.90 ; Other chronic pancreatitis K86.1 and Chronic atrial fibrillation I48.2 [facility] [id number] [place] [address] 62741 -7032 Jun, [place] [address] [place] [id number] [place] [address] 39908- 2033 Jun, Bipolar affective disorder, currently depressed, moderate F31.32 ; Vascular dementia without behavioral disturbance F01.50 and Generalized anxiety disorder F41.1 [place] [address] [place] [id number] [place] [address] 82935- 6434 May, Generalized anxiety disorder F41.1 [place] [id number] [place] [address] 00047- 3122 May, [place] [address] [place] [id number] [place] [address] 37637- 2386 May, [place] [address] [place] [id number] [place] [address] 36676- 5538 15 May, 2017 Coughing R05 [place] [address] [place] [id number] [place] [address] 38180- 1955 May, [place] [id number] [place] [address] 09724- 1093 May, Bipolar affective disorder, currently depressed, moderate F31.32 ; Vascular dementia without behavioral disturbance F01.50 and Generalized anxiety disorder F41.1 [place] [address] [place] [id number] [place] [address] 87461- 6865 Apr, Generalized anxiety disorder F41.1 [place] [address] [place] [id number] [place] [address] 40389- 8159 Apr, [place] [address] [place] [id number] [place] [address] 67788- 6154 Apr, Vascular dementia without behavioral disturbance F01.50 ; Generalized anxiety disorder F41.1 and Bipolar affective disorder, currently depressed, moderate F31.32 [place] [address] [place] [id number] [place] [address] 88775- 7598 Apr, Generalized anxiety disorder F41.1 [facility] [address] [place] [id number] [place] [address] 66304 -9010 Apr, Cough R05 and Acute exacerbation of chronic obstructive pulmonary disease (COPD) J44.1 [place] [address] [place] [id number] [place] [address] 45977- 2542 Apr, [facility] [id number] [place] [address] 85912 -4050 Mar, Cough R05 and Cigarette nicotine dependence without complication F17.210 [place] [address] [place] [id number] [place] [address] 12934- 7761 Mar, [place] [address] [place] [id number] [place] [address] 37993- 5656 Feb, Generalized anxiety disorder F41.1 ; Major depressive disorder, recurrent episode, moderate F33.1 ; Vascular dementia without behavioral disturbance F01.50 and Unspecified psychosis F29 [place] [address] [place] [id number] [place] [address] 49695- 7392 Feb, [place] [id number] [place] [address] 51518- 8463 Feb, [place] [address] [place] [id number] [place] [address] 51793- 4838 Feb, Generalized anxiety disorder F41.1 [place] [address] [place] [id number] [place] [address] 09904- 3929 Feb, Generalized anxiety disorder F41.1 [place] [address] [place] [id number] [place] [address] 82530- 4352 Feb, Dizziness R42 ; Chronic fatigue R53.82 ; Postconcussion syndrome F07.81 ; Fall, initial encounter W19.XXXA and Disorientation R41.0 [place] [address] [place] [id number] [place] [address] 33362- 3449 Feb, Postconcussion syndrome F07.81 ; Injury of head, initial encounter S09.90XA ; Fall, initial encounter W19.XXXA ; Disorientation R41.0 and Acute cystitis with hematuria N30.01 [place] [address] [place] [id number] [place] [address] 07519- 5120 Jan, Gastroesophageal reflux disease, esophagitis presence not specified K21.9 ; Post-menopausal Z78.0 and Migraine without aura and without status migrainosus, not intractable G43.009 [place] [address] [place] [id number] [place] [address] 54370- 1371 Jan, [place] [address] [place] [id number] [place] [address] 93930- 0094 Jan, Generalized anxiety disorder F41.1 ; Major depressive disorder, recurrent episode, moderate F33.1 ; Vascular dementia without behavioral disturbance F01.50 and Unspecified psychosis F29 [place] [id number] [place] [address] 86429- 5942 Jan, Pneumonia of left lower lobe due to infectious organism J18.1 [place] [address] [place] [address]- 7142 05 Jan, 2017 Migraine without aura and with status migrainosus, not intractable G43.001 [facility] [address] [place] [id number] [place] [address] 21948 -6862 Jan, Migraine without aura and without status migrainosus, not intractable G43.009 [facility] [address] [place] [id number] [place] [address] 04940- 1229 Dec, Hematoma T14.8 [facility] [address] [place] [id number] [place] [address] 39452- 4751 Dec, [facility] [address] [place] [id number] [place] [address] 93030 -3562 Nov, Fatigue, unspecified type R53.83 [place] [address] [place] [id number] [place] [address] 36168- 9996 Nov, Scabies B86 and Coronary artery disease involving nisqually coronary artery of nisqually 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 I25.118 [place] [address] [place] [id number] [place] [address] 06725- 3967 Nov, [place] [address] [place] [id number] [place] [address] 00219- 6781 Nov, [place] [address] [place] [id number] [place] [address] 10548- 8690 Oct, [facility] [address] [place] [id number] [place] [address] 73531- 4034 Oct, Generalized anxiety disorder F41.1 and Major depressive disorder, recurrent episode, moderate F33.1 [facility] [address] 42459- 4620 Oct, Cramp of both lower extremities R25.2 [facility] [address] [place] [id number] [place] [address] 64367- 7102 Oct, Leg cramps R25.2 [place] [address] [place] [address]- 5292 Oct, Chronic pain syndrome G89.4 [facility] [address] [place] [id number] [place] [address] 49399- 7227 17 Oct, 2016 [facility] [address] [place] [id number] [place] [address] 54387- 7986 Oct, [facility] [address] [place] [id number] [place] [address] 19011- 5884 Oct, Routine gynecological examination Z01.419 and Screening for breast cancer Z12.31 [facility] [address] [place] [id number] [place] [address] 25560- 2179 28 Sep, 2016 Diarrhea R19.7 [facility] [address] [place] [id number] [place] [address] 40536- 1237 Sep, Back pain M54.9 [place] [address] [place] [id number] [place] [address] 91440- 4571 Sep, [facility] [address] [place] [id number] [place] [address] 32191- 9820 Sep, [facility] [address] [place] [id number] [place] [address] 88534 -8262 August, Xeroderma Q80.9 [facility] [address] [place] [id number] [place] [address] 31991- 8388 August, Dementia without behavioral disturbance, unspecified dementia type F03.90 [facility] [address] [place] [id number] [place] [address] 18882- 9061 August, Chronic pain syndrome G89.4 [facility] [address] [place] [id number] [place] [address] 03581- 9337 August, [facility] [address] [place] [id number] [place] [address] 37913- 6920 August, Hyperlipidemia E78.5 ; Other fatigue R53.83 and Other specified hypotension I95.89 [facility] [address] [address] 98289 -9520 August, Dysuria R30.0 ; Other fatigue R53.83 and Other specified hypotension I95.89 [place] [address] 95929- 1726 August, [place] [address] 45150- 7405 Jul, Pain in left knee M25.562 and Gastroenteritis K52.9 [place] [address] 23914- 0444 Jul, [place] [address] 11739- 6940 Jul, Diarrhea R19.7 [facility] [address] 33038 -9661 Jul, Spider bite, accidental or unintentional, initial encounter T63.301A [place] [address] 75455- 1814 Jul, Primary osteoarthritis of right knee M17.11 and Arthritis M19.90 [place] [address] 36501- 6162 Jul, Generalized anxiety disorder F41.1 and Major depressive disorder, recurrent episode, moderate F33.1 [place] [address] 04451- 8700 Jul, Type 2 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 and Temporal headache R51 [place] [address] 40686- 0635 Jul, Back pain M54.9 [place] [address] 38253- 9024 Jul, [place] [address] 71052- 6939 Jul, [place] [address] 88883- 2801 Jun, Nausea R11.0 [facility] [address] [place] [id number] [place] [address] 41588 -1205 Jun, Acute suppurative otitis media of both ears without spontaneous rupture of tympanic membranes, recurrence not specified H66.003 and COPD exacerbation J44.1 [place] [address] 27162- 9982 Jun, Generalized anxiety disorder F41.1 [facility] [address] 73843- 4950 16 Jun, 2016 [facility] [address] 28883 -2971 Jun, [facility] [address] 44948 -0847 Jun, Shortness of breath R06.02 and COPD exacerbation J44.1 [place] [address] 46116- 5373 10 Jun, 2016 Eczema, unspecified type L30.9 [place] [address] 67071- 7615 Jun, [place] [address] 02275- 8248 May, [place] [address] 84214- 0779 May, Muscle cramping R25.2 [place] [address] 86968- 3646 May, [facility] [address] 68781- 9194 Apr, Diarrhea R19.7 [facility] [address] 36708- 1482 Apr, [place] [address] 46819- 2126 Apr, Chronic pain syndrome G89.4 [place] [address] 38364- 4956 16 Apr, 2016 Cramp of both lower extremities R25.2 and Vascular dementia without behavioral disturbance F01.50 [place] [address] 20497- 7494 Apr, Type 2 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 and Cigarette nicotine dependence without complication F17.210 [place] [address] 17907- 0006 Mar, Generalized anxiety disorder F41.1 [place] [address] 70847- 3002 Feb, Generalized anxiety disorder F41.1 and Major depressive disorder, recurrent episode, moderate F33.1 [place] [address] 54116- 8205 Feb, [facility] [address] 19950 -6226 05 Feb, 2016 Dysuria R30.0 and Acute cystitis with hematuria N30.01 [place] [address] 77582- 9803 31 Jan, 2016 [place] [address] 65502- 2496 Jan, [place] [address] 83235- 5879 Jan, [place] [address] 96246- 3877 11 Jan, 2016 [facility] [address] 71126 -3961 10 Jan, 2016 Wasp sting, accidental or unintentional, initial encounter T63.461A [place] [address] 05942- 4402 Jan, Encounter for immunization Z23 [facility] [id number] [place] [address] 53432- 4484 Jan, [facility] [id number] [place] [address] 13708- 3739 Jan, [facility] [id number] [place] [address] 02756- 5266 28 Dec, 2015 Generalized anxiety disorder F41.1 and Major depressive disorder, recurrent episode, moderate F33.1 [facility] [id number] [place] [address] 92036- 9486 21 Dec, 2015 Routine gynecological examination Z01.419 ; Postmenopausal Z78.0 ; Screening breast examination Z12.39 ; Osteopenia M85.80 and Breast cancer screening Z12.39 [facility] [id number] [place] [address] 12893- 3910 20 Dec, 2015 [facility] [id number] [place] [address] 60710- 3539 19 Dec, 2015 [facility] [id number] [place] [address] 48421- 2571 16 Dec, 2015 [facility] [facility] [id number] [place] [address] 25003- 3174 16 Dec, 2015 [facility] [id number] [place] [address] 63970- 4999 14 Dec, 2015 [facility] [id number] [place] [address] 43553- 9124 06 Dec, 2015 [facility] [id number] [place] [address] 22391- 8931 Nov, [facility] [id number] [place] [address] 99598 -7469 Nov, Cough R05 ; Other viral agents as the cause of diseases classified elsewhere B97.89 and Acute upper respiratory infection, unspecified J06.9 [address] [place] [address]- 8721 Nov, [facility] [address] [address]- 3026 Nov, [facility] [address] [place] [address]- 5356 Nov, [facility] [address], [place] [address]- 8526 Nov, [facility] [address], [place] [address]- 2675 Nov, [facility] [address], [place] [address]- 2579 Oct, [facility] [address], [place] [address]- 3331 Oct, [facility] [address] [address]- 3425 Oct, [facility] [address], [place] [address]- 2272 Oct, Chronic pain syndrome G89.4 [facility] [address], [place] [address]- 0123 Sep, Generalized anxiety disorder F41.1 and Major depressive disorder, recurrent episode, moderate F33.1 [facility] [address], [place] [address]- 8491 Sep, [facility] [address], [place] [address]- 3049 Sep, [facility] [address], [place] [address]- 2647 14 Sep, 2015 Generalized anxiety disorder F41.1 [facility] [address], [place] [address]- 5874 13 Sep, 2015 Cramp of both lower extremities R25.2 and Cervicalgia M54.2 [facility] [id number] [place] [address] 18380- 4240 Sep, Generalized anxiety disorder F41.1 [facility] [id number] [place] [address] 30647- 4817 Sep, [facility] [id number] [place] [address] 17598 -9730 August, Rash R21 ; Itching L29.9 and Allergic response, subsequent encounter T78.40XD [facility] [address] 97005- 8426 August, Primary insomnia F51.01 [facility] [id number] [place] [address] 12573 -0734 August, Rash R21 ; Itching L29.9 and Allergic response, initial encounter T78.40XA [facility] [facility] [id number] [place] [address] 83147- 0826 August, [facility] [id number] [place] [address] 85961- 0230 August, Cramp of both lower extremities R25.2 [facility] [facility] [id number] [place] [address] 31653- 9536 August, Back pain M54.9 [facility] [id number] [place] [address] 56310- 1375 August, [facility] [id number] [place] [address] 18193- 9359 August, [facility] [id number] [place] [address] 57494 -0164 August, Cramp of both lower extremities R25.2 [facility] [id number] [place] [address] 67069- 9484 August, [facility] [id number] [place] [address] 61982- 2644 August, Syncope R55 ; Paroxysmal atrial fibrillation I48.0 ; Dementia without behavioral disturbance, unspecified dementia type F03.90 and Chronic pain syndrome G89.4 [facility] [id number] [place] [address] 42790- 7132 August, Type 2 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 and Syncope R55 [facility] [id number] [place] [address] 75002- 3389 Jul, [facility] [id number] [place] [address] 75072- 5621 Jul, [facility] [id number] [place] [address] 22235- 4882 Jul, [facility] [id number] [place] [address] 33529- 4218 Jul, [facility] [id number] [place] [address] 05223- 8305 Jul, [facility] [id number] [place] [address] 79188- 8488 Jul, UTI (urinary tract infection) N39.0 [facility] [id number] [place] [address] 13270- 4750 Jul, [facility] [id number] [place] [address] 46094- 0536 Jul, Major depressive disorder, recurrent episode, moderate F33.1 and Generalized anxiety disorder F41.1 [facility] [id number] [place] [address] 16520- 6644 Jul, Generalized anxiety disorder F41.1 [facility] [id number] [place] [address] 88310- 0159 Jul, Diarrhea R19.7 [facility] [id number] [place] [address] 52171- 4238 Jul, [facility] [address], [place] [address]- 4872 Jun, [facility] [address], [place] [address]- 6865 Jun, Eczema L30.9 [facility] [address], [place] [address]- 1246 Jun, [facility] [address], [place] [address]- 9916 Jun, COPD (chronic obstructive pulmonary disease) J44.9 [facility] [address], [place] [address]- 3346 Jun, [facility] [address], [place] [address]- 9107 Jun, Major depressive disorder, recurrent episode, moderate F33.1 and Generalized anxiety disorder F41.1 [facility] [address], [place] [address]- 8677 May, [facility] [address], [place] [address]- 3135 May, UTI (urinary tract infection) N39.0 [facility] [address], [place] [address]- 6866 May, [facility] [address], [place] [address]- 1918 May, [facility] [address], [place] [address]- 9516 May, [facility] [address], [place] [address]- 7419 May, [facility] [address], [place] [address]- 4608 Apr, Major depressive disorder, recurrent episode, moderate F33.1 and Generalized anxiety disorder F41.1 [facility] [address], [place] [address]- 9359 Apr, COPD (chronic obstructive pulmonary disease) J44.9 [facility] [id number] [place] [address] 49358- 2541 Apr, [facility] [id number] [place] [address] 89010- 5375 Apr, Atrial flutter I48.92 [facility] [id number] [place] [address] 48779- 5992 Apr, [facility] [id number] [place] [address] 89489- 6257 Apr, [facility] [id number] [place] [address] 91847- 8758 Mar, [facility] [id number] [place] [address] 21216- 5686 Mar, [facility] [id number] [place] [address] 35845- 6432 Mar, [facility] [id number] [place] [address] 79144- 8102 Mar, Hyperlipidemia E78.5 ; Type 2 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 ; Major depressive disorder, recurrent episode, moderate F33.1 and Chronic pain syndrome G89.4 [facility] [id number] [place] [address] 72720- 8890 16 Mar, 2015 [facility] [id number] [place] [address] 99304- 9793 Mar, [facility] [id number] [place] [address] 00406- 4674 Mar, [facility] [id number] [place] [address] 44857- 1361 Mar, [facility] [id number] [place] [address] 37704- 3478 30 Feb, 2015 COPD (chronic obstructive pulmonary disease) J44.9 and Back pain M54.9 [facility] [id number] [place] [address] 11718- 0142 Feb, [facility] [address], [place] [address]- 0515 Feb, [facility] [id number] [place] [address] 27273- 0360 Feb, [facility] [id number] [place] [address] 13753- 4220 Feb, [facility] [id number] [place] [address] 30153- 7357 Feb, [facility] [id number] [place] [address] 88388- 1254 Feb, [facility] [id number] [place] [address] 36660- 4305 Feb, [facility] [id number] [place] [address] 97687- 0245 Feb, [facility] [id number] [place] [address] 32353- 1976 Feb, Diabetes E11.9 ; Back pain M54.9 and COPD (chronic obstructive pulmonary disease) J44.9 [facility] [id number] [place] [address] 00937- 1426 Jan, [facility] [id number] [place] [address] 47276- 1862 Jan, Major depression, recurrent F33.9 and Generalized anxiety disorder F41.1 [facility] [address], [place] [address]- 0173 Jan, Chronic pain G89.29 [facility] [id number] [place] [address] 06122- 1567 Jan, [facility] [address], [place] [address]- 5762 Jan, [facility] [id number] [place] [address] 78110- 6386 Jan, [facility] [id number] [place] [address] 10293- 6164 Jan, [facility] [id number] [place] [address] 64456- 4645 Jan, Nicotine dependence F17.200 [facility] [id number] [place] [address] 51936- 2492 Jan, Nicotine dependence F17.200 and Back pain M54.9 [facility] [id number] [place] [address] 63848- 6461 Jan, [facility] [id number] [place] [address] 44185- 9187 28 Dec, 2014 [facility] [id number] [place] [address] 50031- 8488 25 Dec, 2014 Anxiety, generalized 300.02 and Major depression, recurrent 296.30 [facility] [id number] [place] [address] 01451- 4294 24 Dec, 2014 [facility] [id number] [place] [address] 15948- 7669 21 Dec, 2014 [facility] [id number] [place] [address] 64559- 1038 17 Dec, 2014 [facility] [id number] [place] [address] 85794- 3129 15 Dec, 2014 [facility] [id number] [place] [address] 86797- 4883 14 Dec, 2014 [facility] [id number] [place] [address] 44233- 9948 11 Dec, 2014 [facility] [id number] [place] [address] 00841- 4308 10 Dec, 2014 [facility] [id number] [place] [address] 62591- 5521 08 Dec, 2014 Skin tear 879.8 [facility] [address] [place] [address]- 0752 08 Dec, 2014 Routine gynecological examination V72.31 ; Breast cancer screening V76.10 and Family history of breast cancer in first degree relative V16.3 [facility] [id number] [place] [address] 60868- 7255 Dec, [facility] [id number] [place] [address] 82755- 4372 Dec, [facility] [id number] [place] [address] 41095- 3937 Nov, [facility] [id number] [place] [address] 38658- 9005 Nov, [facility] [id number] [place] [address] 48997- 5500 Nov, Poor balance 781.99 and Vascular dementia, uncomplicated 290.40 [facility] [id number] [place] [address] 88718- 3618 Nov, [facility] [id number] [place] [address] 90822- 4284 Nov, Major depression, recurrent 296.30 and Anxiety, generalized 300.02 [facility] [id number] [place] [address] 63525- 5432 Nov, [facility] [id number] [place] [address] 79612- 4003 Nov, [facility] [id number] [place] [address] 97369- 1932 Nov, [facility] [id number] [place] [address] 64450- 9334 Nov, [facility] [id number] [place] [address] 11927- 4381 Nov, Vascular dementia, uncomplicated 290.40 and Lumbago 724.2 [facility] [id number] [place] [address] 75203- 6352 Nov, [facility] [address], [place] [address]- 6872 Nov, [facility] [id number] [address]- 6804 Nov, [facility] [address], [place] [address]- 1553 Oct, [facility] [id number] [place] [address] 39437- 5323 Oct, [facility] [id number] [place] [address] 67210- 4291 Oct, [facility] [id number] [place] [address] 54473- 0492 Oct, COPD (chronic obstructive pulmonary disease) 496 and Hyperlipidemia 272.4 [facility] [id number] [place] [address] 86272- 3565 Oct, Major depression, recurrent 296.30 and Anxiety, generalized 300.02 [facility] [address], [place] [address]- 7845 Oct, [facility] [address] [address]- 5160 Oct, [facility] [address], [place] [address]- 2163 Oct, [facility] [address], [place] [address]- 9690 Sep, Lumbago 724.2 and Anxiety state, unspecified 300.00 [facility] [address], [place] [address]- 0197 Sep, [facility] [address], [place] [address]- 5383 Sep, [facility] [address], [place] [address]- 1498 August, [facility] [address], [place] [address]- 8479 August, Major depression, recurrent 296.30 ; Anxiety, generalized 300.02 and No condition on Kenna II V71.09 [facility] [address] [facility] [id number] [place] [address]- 0576 August, [facility] [address] [address]- 4766 August, [facility] [address] [facility] [id number] [place] [address]- 6573 29 Jul, 2014 [facility] [address] [place] [address]- 6507 Jul, [facility] [address] [place] [address]- 9885 Jul, [facility] [address] [place] [address]- 3550 Jun, [facility] [address] [place] [address]- 0623 30 Jun, 2014 [facility] [address] [place] [address]- 2708 Jun, [facility] [address] [place] [address]- 7224 Jun, [facility] [address] [place] [address]- 3122 Jun, [facility] [id number] [address]- 9827 Jun, [facility] [address] [place] [address]- 0432 23 Jun, 2014 [facility] [id number] [address]- 7686 17 Jun, 2014 [facility] [id number] [address]- 9072 Jun, [facility] [place] [facility] [address] [id number] [place] [address]- 2051 13 Jun, 2014 [facility] [place] [facility] [address] [id number] [place] [address]- 1597 10 Jun, 2014 [facility] [place] [facility] [address] [id number] [place] [address]- 6186 10 Jun, 2014 [facility] [place] [facility] [address] [id number] [place] [address]- 6981 07 Jun, 2014 [facility] [place] [facility] [address] [id number] [place] [address]- 3197 07 Jun, 2014 [facility] [place] [facility] [address] [id number] [place] [address]- 6397 Jun, 2014 [facility] [place] [facility] [address] [facility] [id number] [place] [address]- 4112 Jun, 2014 [facility] [place] [facility] [address] [id number] [place] [address]- 5033 May, 2014 [facility] [place] [facility] [address] [id number] [place] [address]- 0121 May, 2014 [facility] [place] [facility] [address] [facility] [id number] [place] [address]- 9204 May, 2014 [facility] [place] [facility] [address] [id number] [place] [address]- 7600 May, 2014 [facility] [place] [facility] [address] [id number] [place] [address]- 7695 May, 2014 [facility] [place] [facility] [address] [id number] [place] [address]- 4314 May, 2014 [facility] [place] [facility] [address] [id number] [place] [address]- 7367 19 May, 2014 [facility] [place] [facility] [address] [facility] [id number] [place] [address]- 1702 12 May, 2014 [facility] [place] [facility] [address] [facility] [id number] [place] [address]- 5031 May, 2014 [facility] [place] [facility] [address] [id number] [place] [address]- 7776 May, 2014 [facility] [place] [facility] [address] [id number] [place] [address]- 2636 May, 2014 [facility] [place] [facility] [address] [id number] [place] [address]- 8796 May, 2014 [facility] [place] [facility] [address] [id number] [place] [address]- 5868 May, [facility] [place] [facility] [address] [id number] [place] [address]- 1834 May, [facility] [place] [facility] [address] [id number] [place] [address]- 6349 Apr, [facility] [place] [facility] [address] [id number] [place] [address]- 6163 Apr, [facility] [place] [facility] [address] [id number] [place] [address]- 4550 Apr, [facility] [place] [facility] [address] [id number] [place] [address]- 7664 Apr, [facility] [place] [facility] [address] [id number] [place] [address]- 7171 Apr, [facility] [place] [facility] [address] [id number] [place] [address] Apr, [facility] [place] [facility] [address] [id number] [place] [address] Apr, [facility] [place] [facility] [address] [id number] [place] [address] Apr, [facility] [place] [facility] [address] [id number] [place] [address] Apr, [facility] [place] [facility] [address] [id number] [place] [address] Apr, [facility] [place] [facility] [address] [id number] [place] [address] Apr, [facility] [place] [facility] [address] [id number] [place] [address] Apr, [facility] [place] [facility] [address] [id number] [place] [address] Mar, [facility] [place] [facility] [address] [id number] [place] [address] Mar, [facility] [place] [facility] [address] [id number] [place] [address] 30 Mar, 2014 [facility] [place] [facility] [address] [id number] [place] [address] 30 Mar, 2014 [facility] [place] [facility] [address] [id number] [place] [address] Mar, [facility] [place] [facility] [address] [id number] [place] [address] 29 Mar, 2014 [facility] [place] [facility] [address] [id number] [place] [address] Mar, [facility] [place] [facility] [address] [id number] [place] [address] 19 Mar, 2014 [facility] [place] [facility] [address] [id number] [place] [address] 15 Mar, 2014 [facility] [place] [facility] [address] [id number] [place] [address] 15 Mar, 2014 [facility] [place] [facility] [address] [id number] [place] [address] 15 Mar, 2014 [facility] [place] [facility] [address] [id number] [place] [address] 15 Mar, 2014 [facility] [place] [facility] [address] [id number] [place] [address] 15 Mar, 2014 [facility] [place] [facility] [address] [id number] [place] [address] 15 Mar, 2014 [facility] [place] [facility] [address] [id number] [place] [address] Mar, [facility] [place] [facility] [address] [id number] [place] [address] Mar, [facility] [place] [facility] [address] [id number] [place] [address] Mar, [facility] [place] [facility] [address] [id number] [place] [address] Mar, [facility] [place] [facility] [address] [id number] [place] [address] Mar, [facility] [place] [facility] [address] [id number] [place] [address] Mar, [facility] [place] [facility] [address] [id number] [place] [address] Feb, [facility] [place] [facility] [address] [id number] [place] [address] Feb, [facility] [place] [facility] [address] [id number] [place] [address] Feb, [facility] [place] [facility] [address] [facility] [id number] [place] [address] Feb, [facility] [place] [facility] [address] [id number] [place] [address] 2907 Feb, [facility] [place] [facility] [address] [id number] [place] [address] 1264 Feb, [facility] [place] [facility] [address] [id number] [place] [address] 9968 Feb, [facility] [place] [facility] [address] [id number] [place] [address]- 3729 Feb, [facility] [place] [facility] [address] [id number] [place] [address]- 6286 Feb, [facility] [place] [facility] [address] [id number] [place] [address] 3570 Feb, [facility] [place] [facility] [address] [id number] [place] [address]- 3216 Feb, [facility] [place] [facility] [address] [id number] [place] [address]- 1428 Feb, [facility] [place] [facility] [address] [id number] [place] [address]- 2175 Feb, [facility] [place] [facility] [address] [id number] [place] [address]- 6664 Feb, [facility] [place] [facility] [address] [id number] [place] [address]- 2998 Feb, [facility] [place] [facility] [address] [id number] [place] [address]- 6579 Feb, [facility] [place] [facility] [address] [id number] [place] [address]- 9381 Feb, [facility] [place] [facility] [address] [id number] [place] [address]- 8820 Jan, [facility] [place] [facility] [address] [id number] [place] [address]- 9149 Jan, [facility] [place] [facility] [address] [id number] [place] [address]- 2687 Jan, [facility] [place] [facility] [address] [id number] [place] [address]- 9859 Jan, [facility] [place] [facility] [address] [id number] [place] [address]- 8133 Jan, [facility] [place] [facility] [address] [id number] [place] [address]- 1482 Jan, [facility] [place] [facility] [address] [id number] [place] [address]- 8498 16 Jan, 2014 [facility] [place] [facility] [address] [id number] [place] [address]- 2546 Jan, [facility] [place] [facility] [address] [id number] [place] [address]- 6514 Jan, [facility] [place] [facility] [address] [id number] [place] [address]- 8816 Jan, [facility] [place] [facility] [address] [id number] [place] [address] Jan, [facility] [place] [facility] [address] [id number] [place] [address]- 4180 Dec, [facility] [place] [facility] [address] [id number] [place] [address]- 8710 Dec, [facility] [place] [facility] [address] [id number] [place] [address]- 3914 Nov, [facility] [place] [facility] [address] [id number] [place] [address]- 2586 Nov, [facility] [place] [facility] [address] [id number] [place] [address]- 4180 Nov, [facility] [place] [facility] [address] [id number] [place] [address]- 1783 Nov, [facility] [place] [facility] [address] [id number] [place] [address]- 7677 Nov, [facility] [place] [facility] [address] [id number] [place] [address]- 5494 Nov, [facility] [place] [facility] [address] [id number] [place] [address]- 6365 Nov, [facility] [place] [facility] [address] [id number] [place] [address]- 5482 Oct, [facility] [place] [facility] [address] [id number] [place] [address]- 3293 Oct, [facility] [place] [facility] [address] [id number] [place] [address]- 6128 Oct, [facility] [place] [facility] [address] [id number] [place] [address]- 4123 Oct, [facility] [place] [facility] [address] [id number] [place] [address]- 3837 Sep, [facility] [place] [facility] [address] [id number] [place] [address]- 4256 Sep, [facility] [place] [facility] [address] [id number] [place] [address]- 2037 Sep, [facility] [place] [facility] [address] [id number] [place] [address]- 8079 Sep, [facility] [place] [facility] [address] [id number] [place] [address]- 3709 Sep, [facility] [place] [facility] [address] [id number] [place] [address]- 2891 Sep, [facility] [place] [facility] [address] [id number] [place] [address]- 0072 Sep, [facility] [place] [facility] [address] [id number] [place] [address]- 7072 Sep, [facility] [place] [facility] [address] [id number] [place] [address]- 4995 Sep, [facility] [place] [facility] [address] [id number] [place] [address]- 9277 Sep, [facility] [place] [facility] [address] [id number] [place] [address]- 4064 Sep, [facility] [place] [facility] [address] [id number] [place] [address]- 1267 Sep, [facility] [place] [facility] [address] [id number] [place] [address]- 3251 Sep, [facility] [place] [facility] [address] [id number] [place] [address]- 5030 Sep, [facility] [place] [facility] [address] [id number] [place] [address]- 5923 August, [facility] [address] [id number] [place] [address]- 9579 August, [facility] [place] [facility] [address] [id number] [place] [address]- 9975 August, [facility] [place] [facility] [address] [id number] [place] [address]- 2764 August, [facility] [place] [facility] [address] [id number] [place] [address]- 2249 August, [facility] [place] [facility] [address] [id number] [place] [address]- 4191 August, [facility] [place] [facility] [address] [id number] [place] [address]- 3285 August, [facility] [place] [facility] [address] [id number] [place] [address]- 7869 August, [facility] [place] [facility] [address] [id number] [place] [address]- 1102 August, [facility] [place] [facility] [address] [id number] [place] [address]- 0210 August, [facility] [place] [facility] [address] [id number] [place] [address]- 3558 August, [facility] [place] [facility] [address] [id number] [place] [address]- 6833 August, [facility] [place] [facility] [address] [id number] [place] [address]- 6056 August, [facility] [place] [facility] [address] [id number] [place] [address]- 4967 August, [facility] [place] [facility] [address] [id number] [place] [address] August, [facility] [place] [facility] [address] [id number] [place] [address] August, [facility] [place] [facility] [address] [id number] [place] [address]- 5920 August, [facility] [place] [facility] [address] [id number] [place] [address]- 7191 August, [facility] [place] [facility] [address] [id number] [place] [address]- 7927 August, [facility] [place] [facility] [address] [id number] [place] [address]- 4232 Jul, [facility] [place] [facility] [address] [id number] [place] [address]- 0135 Jul, [facility] [place] [facility] [address] [id number] [place] [address]- 5731 Jul, [facility] [place] [facility] [address] [id number] [place] [address]- 5087 Jul, [facility] [place] [facility] [address] [id number] [place] [address]- 5188 Jun, [facility] [place] [facility] [address] [id number] [place] [address]- 5594 Jun, [facility] [place] [facility] [address] [id number] [place] [address]- 4038 Jun, [facility] [place] [facility] [address] [id number] [place] [address]- 4204 24 Jun, 2013 [facility] [place] [facility] [address] [id number] [place] [address]- 1759 Jun, [facility] [place] [facility] [address] [id number] [place] [address]- 7558 17 Jun, 2013 [facility] [place] [facility] [address] [id number] [place] [address]- 5494 14 Jun, 2013 [facility] [place] [facility] [address] [id number] [place] [address]- 1722 14 Jun, 2013 [facility] [place] [facility] [address] [id number] [place] [address]- 8635 06 Jun, 2013 [facility] [place] [facility] [address] [id number] [place] [address]- 0053 Jun, [facility] [place] [facility] [address] [id number] [place] [address]- 6916 May, [facility] [place] [facility] [address] [id number] [place] [address] 2546 May, [facility] [place] [facility] [address] [id number] [place] [address]- 2399 May, [facility] [place] [facility] [address] [id number] [place] [address]- 0955 May, [facility] [place] [facility] [address] [id number] [place] [address]- 0096 May, [facility] [place] [facility] [address] [facility] [id number] [place] [address]- 9775 May, [facility] [place] [facility] [address] [id number] [place] [address]- 3250 May, [facility] [place] [facility] [address] [facility] [id number] [place] [address]- 6171 May, [facility] [place] [facility] [address] [facility] [id number] [place] [address]- 3881 May, [facility] [place] [facility] [address] [facility] [id number] [place] [address]- 5673 May, [facility] [place] [facility] [address] [facility] [id number] [place] [address]- 2543 May, [facility] [place] [facility] [address] [facility] [id number] [place] [address]- 2459 17 May, 2013 [facility] [place] [facility] [address] [id number] [place] [address]- 5972 May, [facility] [place] [facility] [address] [facility] [id number] [place] [address]- 0056 May, [facility] [place] [facility] [address] [facility] [id number] [place] [address]- 4782 10 May, 2013 [facility] [address] [id number] [place] [address]- 9696 07 May, 2013 [facility] [place] [facility] [address] [id number] [place] [address] 2546 07 May, 2013 [facility] [address] [id number] [place] [address]- 1026 Apr, [facility] [address] [id number] [place] [address]- 3114 Apr, [facility] [address] [id number] [place] [address]- 2766 Apr, [facility] [address] [id number] [place] [address]- 4571 Apr, [facility] [address] [id number] [place] [address]- 5342 Apr, [facility] [address] [id number] [place] [address]- 0361 Apr, [facility] [address] [id number] [place] [address]- 1273 Apr, [facility] [address] [id number] [place] [address]- 9615 Mar, [facility] [place] [facility] [address] [id number] [place] [address]- 7376 Mar, [facility] [address] [id number] [place] [address]- 2546 Mar, [facility] [place] [facility] [address] [id number] [place] [address]- 0716 Mar, [facility] [place] [facility] [address] [id number] [place] [address]- 2546 Mar, [facility] [place] [facility] [address] [id number] [place] [address]- 4713 Mar, [facility] [place] [facility] [address] [id number] [place] [address]- 2881 Mar, [facility] [place] [facility] [address] [id number] [place] [address]- 3966 Mar, [facility] [place] [facility] [address] [id number] [place] [address] Mar, [facility] [place] [facility] [address] [id number] [place] [address]- 6038 Mar, [facility] [place] [facility] [address] [id number] [place] [address]- 7519 Mar, [facility] [place] [facility] [address] [id number] [place] [address]- 6234 Feb, [facility] [place] [facility] [address] [id number] [place] [address]- 9808 Feb, [facility] [place] [facility] [address] [id number] [place] [address]- 1197 Feb, [facility] [place] [facility] [address] [id number] [place] [address]- 5782 Feb, [facility] [place] [facility] [address] [id number], [place] [address]- 2183 Feb, [facility] [place] [facility] [address] [id number], [place] [address]- 8018 19 Feb, 2013 [facility] [place] [facility] [address] [id number], [place] [address]- 7555 15 Feb, 2013 [facility] [place] [facility] [address] [id number] [place] [address]- 2606 14 Feb, 2013 [facility] [place] [facility] [address] [id number] [place] [address]- 7052 14 Feb, 2013 [facility] [place] [facility] [address] [id number], [place] [address]- 4337 13 Feb, 2013 [facility] [place] [facility] [address] [id number] [place] [address]- 4322 Feb, [facility] [place] [facility] [address] [id number] [place] [address]- 4181 Feb, [facility] [place] [facility] [address] [id number], [place] [address]- 7164 Feb, [facility] [place] [facility] [address] [id number] [place] [address]- 6275 Feb, [facility] [place] [facility] [address] [id number] [place] [address]- 9561 Feb, [facility] [place] [facility] [address] [id number] [place] [address]- 7767 Feb, [facility] [place] [facility] [address] [id number] [place] [address]- 2284 Jan, [facility] [place] [facility] [address] [id number] [place] [address]- 6462 Jan, [facility] [place] [facility] [address] [id number], [place] [address]- 0762 Jan, [facility] [place] [facility] [address] [id number] [place] [address]- 9188 Jan, [facility] [place] [facility] [address] [id number] [place] [address]- 7373 Jan, [facility] [place] [facility] [address] [id number] [place] [address]- 2345 Jan, [facility] [place] [facility] [address] [id number], [place] [address]- 7655 Jan, [facility] [place] [facility] [address] [id number], [place] [address]- 6909 10 Jan, 2013 [facility] [place] [facility] [address] [id number], [place] [address]- 1796 10 Jan, 2013 [facility] [place] [facility] [address] [id number], [place] [address]- 6051 27 Dec, 2012 [facility] [place] [facility] [address] [id number] [place] [address]- 3869 20 Dec, 2012 [facility] [place] [facility] [address] [id number] [place] [address] 2546 19 Dec, 2012 [facility] [place] [facility] [address] [id number] [place] [address] 2546 10 Dec, 2012 [facility] [place] [facility] [address] [id number] [place] [address] 2546 04 Dec, 2012 [facility] [place] [facility] [address] [id number] [place] [address] 2549 03 Dec, 2012 [facility] [place] [facility] [address] [id number] [place] [address]- 8073 Nov, [facility] [place] [facility] [address] [id number] [place] [address]- 4053 Nov, [facility] [place] [facility] [address] [id number] [place] [address]- 3158 Nov, [facility] [place] [facility] [address] [id number] [place] [address]- 4555 Nov, [facility] [place] [facility] [address] [id number] [place] [address]- 5604 Nov, [facility] [place] [facility] [address] [id number] [place] [address]- 254 Nov, [facility] [place] [facility] [address] [id number] [place] [address]- 2540 Nov, [facility] [place] [facility] [address] [id number] [place] [address] 254 Nov, [facility] [place] [facility] [address] [id number] [place] [address] 254 14 Nov, 2012 [facility] [place] [facility] [address] [id number] [place] [address]- 2544 07 Nov, 2012 [facility] [place] [facility] [address] [id number] [place] [address]- 5020 Oct, [facility] [place] [facility] [address] [id number] [place] [address]- 2826 Oct, 2012 [facility] [place] [facility] [address] [id number] [place] [address]- 8542 Oct, [facility] [place] [facility] [address] [id number] [place] [address]- 5273 Oct, 2012 [facility] [place] [facility] [address] [id number] [place] [address]- 6083 Oct, 2012 [facility] [place] [facility] [address] [id number] [place] [address]- 9788 Oct, [facility] [place] [facility] [address] [id number] [place] [address]- 0506 Oct, [facility] [place] [facility] [address] [id number] [place] [address]- 8618 Oct, [facility] [place] [facility] [address] [id number] [place] [address]- 0864 Sep, [facility] [place] [facility] [address] [id number] [place] [address]- 4235 Sep, [facility] [place] [facility] [address] [id number] [place] [address]- 1787 Sep, [facility] [place] [facility] [address] [id number], [place] [address]- 0740 Sep, [facility] [place] [facility] [address] [id number], [place] [address]- 0979 Sep, [facility] [place] [facility] [address] [id number] [place] [address]- 2871 Sep, [facility] [place] [facility] [address] [id number], [place] [address]- 9912 Sep, [facility] [place] [facility] [address] [id number] [place] [address]- 1751 Sep, [facility] [place] [facility] [address] [id number] [place] [address]- 3451 August, [facility] [address] [id number] [place] [address]- 1744 August, [facility] [address] [id number] [place] 3658 August, [facility] [address] [id number] [place] [address]- 1031 August, [facility] [address] [id number] [place] [address]- 7710 August, [facility] [address] [id number] [place] [address] Jul, [facility] [address] [id number] [place] [address]- 3431 Jul, [facility] [address] [id number] [place] [address]- 3203 Jul, [facility] [address] [id number] [place] [address]- 6068 Jul, [facility] [address] [id number] [place] [address]- 1833 Jul, [facility] [address] [id number] [place] [address] Jun, [facility] [address] [id number] [place] [address] 18 Jun, 2012 [facility] [address] [id number] [place] [address] 15 Jun, 2012 [facility] [address] [id number] [place] [address] 14 Jun, 2012 [facility] [address] [id number] [place] [address] 12 Jun, 2012 [facility] [address] [id number] [place] [address] 08 Jun, 2012 [facility] [address] [id number] [place] [address] 08 Jun, 2012 [facility] [address] [id number] [place] [address] Jun, [facility] [address] [id number] [place] [address] Jun, [facility] [address] [id number] [place] [address] May, [facility] [address] [id number] [place] [address] May, [facility] [address] [id number] [place] [address] May, [facility] [address] [id number] [place] [address] May, [facility] [address] [id number] [place] [address] Apr, [facility] [address] [id number] [place] [address] Apr, [facility] [address] [id number] [place] [address] Apr, [facility] [address] [id number] [place] [address] Apr, [facility] [address] [id number] [address] Apr, [facility] [address] [id number] [place] [address] Apr, [facility] [address] [id number] [place] [address] Apr, [facility] [address] [id number] [place] [address] Mar, [facility] [address] [place] [id number] Mar, [facility] [address] [id number] [place] [address] Mar, [facility] [place] [facility] [address] [id number] [place] [address] 67[address] Mar, [facility] [address] [id number] [place] [address] Mar, [facility] [place] [facility] [address] [id number] [place] [address] 9466 Mar, [facility] [address] [id number] [place] [address] Mar, [facility] [address] [id number] [place] [address] 7976 Mar, [facility] [address] [id number] [place] [address] Mar, [facility] [place] [facility] [address] [id number] [place] [address] 9[address] Mar, [facility] [address] [id number] [place] [address] Mar, [facility] [place] [facility] [address] [id number] [place] [address] Mar, [facility] [place] [facility] [address] [id number] [place] [address] Mar, [facility] [place] [facility] [address] [id number], [place] [address] Mar, [facility] [place] [facility] [address] [id number] [place] [address] Mar, [facility] [place] [facility] [address] [id number] [place] [address]- 74[address] Mar, [facility] [place] [facility] [address] [id number] [place] [address]- [address]256 Mar, [facility] [place] [facility] [address] [id number] [place] [address]- [address]285 Feb, [facility] [address] [id number] [place] [address]398 Feb, [facility] [place] [facility] [address] [id number] [place] [address]- [address] Feb, [facility] [place] [facility] [address] [id number] [place] [address] Feb, [facility] [place] [facility] [address] [id number] [place] [address] Feb, [facility] [place] [facility] [address] [id number] [place] [address]- [address] Feb, [facility] [place] [facility] [address] [id number] [place] [address]- 7973 Feb, [facility] [address] [id number] [place] [address] Feb, [facility] [address] [id number] [place] [address]- 8910 Feb, [facility] [place] [facility] [address] [id number] [place] [address]- 5296 Feb, [facility] [address] [id number] [place] [address]- 56[address] Feb, [facility] [place] [facility] [address] [id number] [place] [address] Feb, [facility] [place] [facility] [address] [id number] [place] [address]- 29[address] Feb, [facility] [place] [facility] [address] [id number] [place] [address]- 404[address] Feb, [facility] [place] [facility] [address] [id number] [place] [address] Feb, [facility] [place] [facility] [address] [id number] [place] [address]- 90[address] Feb, [facility] [place] [facility] [address] [id number] [place] [address]- 6084 Jan, [facility] [place] [facility] [address] [id number] [place] [address] Jan, [facility] [place] [facility] [address] [id number] [place] [address]- 6[address] Jan, [facility] [place] [facility] [address] [id number] [place] [address]- 9056 Jan, [facility] [place] [facility] [address] [id number] [place] [address]- 5186 Jan, [facility] [place] [facility] [address] [id number] [place] [address]- 3590 Jan, [facility] [place] [facility] [address] [id number] [place] [address]- 8104 Jan, [facility] [place] [facility] [address] [id number], [place] [address] Jan, [facility] [place] [facility] [address] [id number] [place] [address]- 4653 Jan, [facility] [place] [facility] [address] [id number], [place] [address] Jan, [facility] [place] [facility] [address] [facility] [id number], [place] [address] Jan, [facility] [place] [facility] [address] [id number], [place] [address]- 6[address] Jan, [facility] [place] [facility] [address] [id number], [place] [address]- [address]24 Jan, [facility] [place] [facility] [address] [id number], [place] [address]- [address]67 Jan, [facility] [place] [facility] [address] [id number] [address] Jan, [facility] [place] [facility] [address] [id number], [place] [address] 05 Jan, 2012 [facility] [place] [facility] [address] [id number] [place] [address] 04 Jan, 2012 [facility] [place] [facility] [address] [id number] [place] [address] 2546 21 Dec, 2011 [facility] [place] [facility] [address] [id number] [place] [address] 20 Dec, 2011 [facility] [place] [facility] [address] [id number] [place] [address] 2546 18 Dec, 2011 [facility] [place] [facility] [address] [id number] [place] [address]- 5666 18 Dec, 2011 [facility] [place] [facility] [address] [id number] [place] [address]- 5716 10 Dec, 2011 [facility] [place] [facility] [address] [id number] [place] [address]- 6146 10 Dec, 2011 [facility] [place] [facility] [address] [id number] [place] [address]- 6478 10 Dec, 2011 [facility] [place] [facility] [address] [id number] [place] [address] 07 Dec, 2011 [facility] [place] [facility] [address] [id number] [place] [address]- 0196 30 Nov, 2011 [facility] [place] [facility] [address] [id number] [place] [address]- 8291 25 Nov, 2011 [facility] [place] [facility] [address] [id number] [place] [address]- 2543 24 Nov, 2011 [facility] [place] [facility] [address] [id number] [place] [address] 1566 Nov, [facility] [place] [facility] [address] [id number] [place] [address]- 4346 Nov, [facility] [place] [facility] [address] [id number] [place] [address]- 9469 16 Nov, 2011 [facility] [place] [facility] [address] [id number] [place] [address]- 6682 30 Oct, 2011 [facility] [place] [facility] [address] [id number] [place] [address]- 3246 30 Oct, 2011 [facility] [place] [facility] [address] [id number] [place] [address] 2546 Oct, [facility] [place] [facility] [address] [id number] [place] [address] 8746 Oct, [facility] [place] [facility] [address] [id number] [place] [address]- 8252 Oct, [facility] [place] [facility] [address] [id number] [place] [address]- 5468 Oct, [facility] [place] [facility] [address] [id number] [place] [address]- 5221 Oct, [facility] [place] [facility] [address] [id number] [place] [address]- 7887 Sep, [facility] [place] [facility] [address] [id number] [place] [address]- 5273 Sep, [facility] [place] [facility] [address] [id number] [place] [address]- 0[address] Sep, [facility] [place] [facility] [address] [id number] [place] [address]- 4797 Sep, [facility] [place] [facility] [address] [id number] [place] [address]- 2419 19 Sep, 2011 [facility] [place] [facility] [address] [id number] [place] [address] 2541 15 Sep, 2011 [facility] [place] [facility] [address] [id number] [place] [address]- 5191 14 Sep, 2011 [facility] [place] [facility] [address] [id number] [place] [address]- 2546 11 Sep, 2011 [facility] [place] [facility] [address] [id number] [place] [address]- 3609 Sep, [facility] [address] [id number] [place] [address] 5054 Sep, [facility] [place] [facility] [address] [id number] [place] [address]- 9069 August, [facility] [place] [facility] [address] [id number] [place] [address] 5195 August, [facility] [place] [facility] [address] [id number] [place] [address] 2979 August, [facility] [address] [id number] [place] [address] 3649 August, [facility] [place] [facility] [address] [id number] [place] [address] 9693 August, [facility] [place] [facility] [address] [id number] [place] [address] 2133 Jul, [facility] [place] [facility] [address] [id number] [place] [address] 3558 Jul, [facility] [place] [facility] [address] [id number] [place] [address]- 2687 Jul, [facility] [place] [facility] [address] [id number] [place] [address] 7410 Jul, [facility] [place] [facility] [address] [id number] [place] [address] 7063 Jul, [facility] [place] [facility] [address] [id number] [place] [address]- 5452 Jul, [facility] [place] [facility] [address] [id number] [place] [address]- 5525 Jul, [facility] [place] [facility] [address] [id number] [place] [address]- 2152 Jun, [facility] [place] [facility] [address] [id number] [place] [address]- 7424 Jun, [facility] [place] [facility] [address] [id number] [place] [address]- 9290 Jun, [facility] [place] [facility] [address] [id number] [place] [address]- 5786 Jun, [facility] [place] [facility] [address] [id number] [place] [address] Jun, [facility] [place] [facility] [address] [id number] [place] [address]- 4466 May, [facility] [place] [facility] [address] [id number] [place] [address]- 3189 May, [facility] [place] [facility] [address] [id number] [place] [address], [place] [address] 5926 May, [facility] [place] [facility] [address] [id number] [place] [address]- 2361 May, [facility] [place] [facility] [id number] [place] [address], [place] [address] 1209 May, [facility] [place] [facility] [address] [id number] [place] [address]- 6775 May, [facility] [place] [facility] [id number] [place] [address] 4176 Apr, [facility] [place] [facility] [address] [id number] [place] [address]80 Mar, [facility] [place] [facility] [address] [id number] [place] [address] 2544 Feb, [facility] [place] [facility] [address] [id number] [place] [address] 2548 Feb, [facility] [place] [facility] [address] [facility] [id number] [place] [address] 2822 Feb, [facility] [place] [facility] [address] [facility] [id number] [place] [address]- 5353 Feb, [facility] [place] [facility] [address] [facility] [id number] [place] [address] Jan, [facility] [place] [facility] [address] [id number] [place] [address]- 6014 27 Jan, 2011 [facility] [place] [facility] [address] [id number] [place] [address]- 6584 26 Jan, 2011 [facility] [place] [facility] [address] [id number] [place] [address]- 1557 24 Jan, 2011 [facility] [place] [facility] [address] [id number] [place] [address]- 1207 14 Jan, 2011 [facility] [place] [facility] [address] [id number] [place] [address]- 9569 Dec, [facility] [place] [facility] [address] [id number] [place] [address]- 4102 Oct, [facility] [place] [facility] [address] [id number] [place] [address]- 1890 August, [facility] [place] [facility] [address] [id number] [place] [address]- 0460 29 Mar, 2010 [facility] [place] [facility] [address] [id number] [place] [address]- 1648 27 Mar, 2010 [facility] [place] [facility] [address] [id number], [place] [address] 3425 16 Mar, 2010 [facility] [place] [facility] [address] [id number], [place] [address] 1977 15 Mar, 2010 [facility] [place] [facility] [address] [id number], [place] [address]- 0669 15 Mar, 2010 [facility] [place] [facility] [address] [id number] [place] [address]- 8346 08 Mar, 2010 [facility] [place] [facility] [address] [id number], [place] [address]- 8475 03 Mar, 2010 [facility] [place] [facility] [address] [id number], [place] [address]- 7056 24 Feb, 2010 [facility] [place] [facility] [address] [id number], [place] [address]- 2658 24 Feb, 2010 [facility] [place] [facility] [address] [id number] [place] [address]- 2160 15 Feb, 2010 [facility] [place] [facility] [address] [facility] [id number], [place] [address]- 1056 Jan, [facility] [place] [facility] [address] [facility] [id number] [place] [address]- 6589 18 Jan, 2010 [facility] [place] [facility] [address] [facility] [id number], [place] [address]- 6162 18 Jan, 2010 [facility] [place] [facility] [address] [facility] [id number] [place] [address], [place] [address]- 7997 Nov, [facility] [place] [facility] [address] [facility] [id number], [place] [address]- 1885 Sep, [facility] [place] [facility] [id number] [place] [address]- 3305 August, [facility] [place] [facility] [address] [facility] [id number], [place] [address]- 2128 30 Mar, 2009 [facility] [place] [facility] [address] [id number], [place] [address]- 1803 07 Mar, 2009 [facility] [place] [facility] [address] [id number], [place] [address]- 1233 17 Feb, 2009 [facility] [place] [facility] [address] [facility] [id number], [place] [address]- 4760 10 Feb, 2009 [facility] [place] [facility] [address] [facility] [id number], [place] [address]- 9707 10 Feb, 2009 [facility] [place] [facility] [address] [facility] [id number], [place] [address]- 2210 10 Feb, 2009 [facility] [place] [facility] [address] [facility] [id number], [place] [address]- 1575 06 Feb, 2009 [facility] [place] [facility] [address] [id number], [place] [address]- 7327 27 Jan, 2009 [facility] [place] [facility] [address] [id number], [place] [address]- 3957 Jan, [facility] [id number], [place] [address]- 7788 Jan, [facility] [id number], [place] [address]- 8448 Jan, [facility] [id number], [place] [address]- 6457 Nov, [facility] [id number], [place] [address]- 7549 Sep, [facility] [id number] [place] [address]- 4061 August, [facility] [id number], [place] [address]- 7445 Jul, [facility] [id number], [place] [address]- 6929 May, IMMUNIZATIONS No Known Immunizations SOCIAL HISTORY [...] Knee Surgery 07/16/17 Hospitalization History [facility] [place]- left hand/wrist swelling 10/09/2017
--- OUTSIDE RECORDS SUMMARY | 2018-01-01 11:39 | XMS REPORT ---
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 Active 91294699 Problem Colon polyp K63.5 Active 26554630 Problem Bilateral low back pain without sciatica M54.5 Active 924713328 Problem Screening breast examination Z12.39 Active 551827010 Problem Postmenopausal Z78.0 Active 97044148 Problem Osteopenia M85.80 Active 577891859 Problem Cigarette nicotine dependence without complication F17.210 Active 88305606 Problem Type 2 diabetes mellitus with diabetic peripheral angiopathy without gangrene E11.51 Active 056086637 Problem Vascular dementia without behavioral disturbance F01.50 Active [id number] Problem Unspecified atherosclerosis of [place] arteries of extremities, unspecified extremity I70.209 Active 113123620786070 Problem Arthritis M19.90 Active 1929084 Problem Chronic atrial fibrillation I48.2 Active 866705349 Problem Chronic obstructive pulmonary disease with acute lower respiratory infection J44.0 Active 295869359 Problem Other chronic pancreatitis K86.1 Active 827570889 Problem Stress incontinence of urine N39.3 Active 06765329 Problem Controlled type 2 diabetes mellitus without complication, without long -term current use of insulin E11.9 Active 737509462 Problem Unspecified psychosis F29 Active 63761763 Problem Xeroderma Q80.9 Active 00222796 Problem COPD (chronic obstructive pulmonary disease) J44.9 Active 86376774 Problem Dementia without behavioral disturbance, unspecified dementia type F03.90 Active 34625780 Problem Gastroparesis K31.84 Active 391534427 Problem Type 2 diabetes mellitus with diabetic neuropathy, without long-term current use of insulin E11.40 Active 82983455 Problem Osteoporosis M81.0 Active 00666253 Problem Atherosclerosis of [place] artery of both lower extremities with intermittent claudication I70.213 Active 676278664794898 Problem Hyperlipidemia E78.5 Active 24860254 Problem Diabetic polyneuropathy associated with type 2 diabetes mellitus E11.42 Active 61593577 Problem Essential tremor G25.0 Active 64376865 Problem Atherosclerotic heart disease of [place]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 I25.118 Active 4323450455965 Problem Generalized anxiety disorder F41.1 Active 856136916 Problem Gastroesophageal reflux disease, esophagitis presence not specified K21.9 Active 634908220 Problem Coronary artery disease involving [place] coronary artery of [place] 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 I25.118 Active 1227886400214 Problem Postconcussion syndrome F07.81 Active 42389505 Problem Chronic pain syndrome G89.4 Active 629415511 Problem Migraine without aura and without status migrainosus, not intractable G43.009 Active 276373276 Problem Paroxysmal atrial fibrillation I48.0 Active 133542310 Problem Migraine without aura and with status migrainosus, not intractable G43.001 Active 750391845 Problem Cervicalgia M54.2 Active 6034127778683 Problem Acute exacerbation of chronic obstructive pulmonary disease (COPD) J44.1 Active 477044750 Problem Major depressive disorder, recurrent episode, moderate F33.1 Active 087852921 Problem Crohn''s disease without complication, unspecified gastrointestinal tract location K50.90 Active 06442891 Problem Chronic fatigue R53.82 Active 12588514 Problem Bipolar affective disorder, currently depressed, moderate F31.32 Active 555220853 ALLERGIES No Information ENCOUNTERS Encounter Location Date Diagnosis [place] [address], [place] [address] Nov, [place] [address], [place] [address] Nov, [facility] [address], [place] [address] Nov, Bronchitis J40 [place] [address], [place] [address] Oct, [facility] [place] [address], [place] [address] Oct, Bipolar affective disorder, currently depressed, moderate F31.32 ; Vascular dementia without behavioral disturbance F01.50 and Generalized anxiety disorder F41.1 [facility] [address], [place] [address] Oct, [facility] [address] [place] [id number] [place] [address] 65902- 2174 Oct, [facility] [address] [place] [id number] [place] [address] 99537- 9493 Oct, Edema of both legs R60.0 [facility] [address] [place] [id number] [place] [address] 74271- 5552 Oct, [facility] [address] [place] [id number] [place] [address] 44524- 7260 Sep, [facility] [address] [place] [id number] [place] [address] 08096- 8030 Sep, [facility] [address] [place] [id number] [place] [address] 93542- 0776 Sep, [facility] [address] [place] [id number] [place] [address] 04630- 3220 Sep, Encounter for well woman exam with routine gynecological exam Z01.419 ; Screening for STDs (sexually transmitted diseases) Z11.3 ; Screening breast examination Z12.31 and Overweight (BMI 25.0-29.9) E66.3 [facility] [address], [place] [address] 6198 Sep, [facility] [address] [place] [id number] [place] [address] 76715- 7065 Sep, [facility] [address], [place] [address]- 4692 Sep, [facility] [id number] [place] [address] 49511- 7813 August, [facility] [address], [place] [address]- 5167 August, [facility] [address] [place] [id number] [place] [address] 08964- 6845 August, Type 2 diabetes mellitus with diabetic neuropathy, without long-term current use of insulin E11.40 and Sprain of right ankle, unspecified ligament, initial encounter S93.401A [facility] [address] [place] [id number] [place] [address] 89882- 1109 August, [facility] [id number] [place] [address] 69302- 8585 August, [facility] [address] [place] [id number] [place] [address] 13560- 2807 August, [facility] [address] [place] [id number] [place] [address] 68987- 9959 August, Gastroesophageal reflux disease, esophagitis presence not specified K21.9 [facility] [address] [place] [id number] [place] [address] 05529- 8759 August, [facility] [address] [place] [address] [id number] [place] [address] 19462- 9073 August, [facility] [address], [place] [address]- 1647 August, [facility] [id number] [place] [address] 17018- 1259 August, Type 2 diabetes mellitus with diabetic neuropathy, without long-term current use of insulin E11.40 and Elevated liver enzymes R74.8 [facility] [address], [place] [address]- 3609 Jul, [facility] [address] [place] [id number] [place] [address] 68390- 9664 Jul, Cough R05 [facility] [id number] [place] [address] 77545- 0788 Jul, [facility] [address] [place] [id number] [place] [address] 03503- 6893 Jul, [facility] [address] 36382- 9989 Jul, Bipolar affective disorder, currently depressed, moderate F31.32 ; Vascular dementia without behavioral disturbance F01.50 and Generalized anxiety disorder F41.1 [facility] [address] 52511- 2424 Jul, [facility] [address] 18472- 8605 Jul, Type 2 diabetes mellitus with diabetic neuropathy, without long-term current use of insulin E11.40 and Elevated liver enzymes R74.8 [facility] [address] [place] [id number] [place] [address] 12835- 0182 Jul, [facility] [address] 39156- 2300 Jul, [facility] [address] [place] [id number] [place] [address] 57748- 0020 Jul, [facility] [address] 07561- 3850 Jul, Post-menopausal Z78.0 [facility] [address] [place] [id number] [place] [address] 03937- 8823 Jul, Stress incontinence of urine N39.3 [facility] [address] [place] [id number] [place] [address] 91153- 0179 Jul, [facility] [address] [place] [id number] [place] [address] 07000- 3464 Jul, [facility] [address] [place] [id number] [place] [address] 89585- 3489 Jul, Stress incontinence of urine N39.3 and Cough R05 [facility] [address] [place] [id number] [place] [address] 30659- 9767 Jul, [facility] [address], [place] [address]- 8459 Jul, [facility] [address] [place] [id number] [place] [address] 15138- 1139 Jul, [facility] [address] [place] [id number] [place] [address] 55145- 2027 Jul, Gastroesophageal reflux disease, esophagitis presence not specified K21.9 [facility] [address] [place] [id number] [place] [address] 47608- 1073 Jun, Diabetic polyneuropathy associated with type 2 diabetes mellitus E11.42 [facility] [place] [address] [place] [id number] [place] [address] Jun, Diabetic polyneuropathy associated with type 2 diabetes mellitus E11.42 ; Coronary artery disease involving [place] coronary artery of [place] 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 I25.118 and Paroxysmal atrial fibrillation I48.0 [facility] [address] [place] [id number] [place] [address] 64222- 3119 Jun, [facility] [address] [place] [id number] [place] [address] 65954- 6539 Jun, [facility] [address] [place] [id number] [place] [address] 75547 254 Jun, Gastroenteritis K52.9 [facility] [address] [place] [id number] [place] [address] 90162 2542 Jun, Gastroenteritis K52.9 [facility] [address] [place] [id number] [place] [address] 24959 2542 Jun, [facility] [id number] [place] [address] 38184- 5262 Jun, [facility] [address] [place] [id number] [place] [address] 95151- 1327 Jun, Sprain of right ankle, unspecified ligament, initial encounter S93.401A ; Type 2 diabetes mellitus with diabetic neuropathy, without long-term current use of insulin E11.40 ; Atherosclerosis of [place] artery of both lower extremities with intermittent claudication I70.213 ; Atherosclerotic heart disease of [place]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 I25.118 ; Chronic atrial fibrillation I48.2 and Crohn''s disease without complication, unspecified gastrointestinal tract location K50.90 [facility] [address], [place] [address] 17 Jun, 2017 Cough R05 and Chronic obstructive pulmonary disease with acute lower respiratory infection J44.0 [facility] [address] [place] [id number] [place] [address] 84564- 4758 Jun, [facility] [address] [place] [id number] [place] [address] 54701- 6422 Jun, Coughing R05 ; Unspecified atherosclerosis of [place] arteries of extremities, unspecified extremity I70.209 ; Type 2 diabetes mellitus with diabetic peripheral angiopathy without gangrene E11.51 ; Crohn''s disease without complication, unspecified gastrointestinal tract location K50.90 ; Other chronic pancreatitis K86.1 and Chronic atrial fibrillation I48.2 [facility] [id number] [place] [address] 30674 -7023 Jun, [facility] [address] [place] [id number] [place] [address] 62850- 0094 Jun, Bipolar affective disorder, currently depressed, moderate F31.32 ; Vascular dementia without behavioral disturbance F01.50 and Generalized anxiety disorder F41.1 [facility] [place] [address] [place] [id number] [place] [address] 11361- 6263 May, Generalized anxiety disorder F41.1 [facility] [place] [id number] [place] [address] 34366- 7511 May, [facility] [address] [place] [id number] [place] [address] 40255- 8678 May, [facility] [place] [address] [place] [id number] [place] [address] 14078- 9682 15 May, 2017 Coughing R05 [facility] [address] [place] [id number] [place] [address] 41431- 9751 May, [facility] [id number] [place] [address] 60031- 8501 May, Bipolar affective disorder, currently depressed, moderate F31.32 ; Vascular dementia without behavioral disturbance F01.50 and Generalized anxiety disorder F41.1 [facility] [place] [address] [place] [id number] [place] [address] 24964- 3733 Apr, Generalized anxiety disorder F41.1 [facility] [place] [address] [place] [id number] [place] [address] 11163- 9099 Apr, [facility] [place] [address] [place] [id number] [place] [address] 93623- 2561 Apr, Vascular dementia without behavioral disturbance F01.50 ; Generalized anxiety disorder F41.1 and Bipolar affective disorder, currently depressed, moderate F31.32 [facility] [place] [address] [place] [id number] [place] [address] 47808- 7186 Apr, Generalized anxiety disorder F41.1 [facility] [address] [place] [id number] [place] [address] 58265 -0377 Apr, Cough R05 and Acute exacerbation of chronic obstructive pulmonary disease (COPD) J44.1 [facility] [place] [address] [place] [id number] [place] [address] 28312- 3561 Apr, [facility] [id number] [place] [address] 96192 -5221 Mar, Cough R05 and Cigarette nicotine dependence without complication F17.210 [facility] [address] [place] [id number] [place] [address] 21431- 9684 Mar, [facility] [place] [address] [place] [id number] [place] [address] 20792- 0903 Feb, Generalized anxiety disorder F41.1 ; Major depressive disorder, recurrent episode, moderate F33.1 ; Vascular dementia without behavioral disturbance F01.50 and Unspecified psychosis F29 [place] [address] [place] [id number] [place] [address] 42564- 1243 Feb, [place] [id number] [place] [address] 83713- 9845 Feb, [facility] [place] [address] [place] [id number] [place] [address] 87713- 3275 Feb, Generalized anxiety disorder F41.1 [facility] [address] [place] [id number] [place] [address] 63667- 9438 Feb, Generalized anxiety disorder F41.1 [facility] [place] [address] [place] [id number] [place] [address] 78810- 4137 Feb, Dizziness R42 ; Chronic fatigue R53.82 ; Postconcussion syndrome F07.81 ; Fall, initial encounter W19.XXXA and Disorientation R41.0 [place] [address] [place] [id number] [place] [address] 66892- 2092 Feb, Postconcussion syndrome F07.81 ; Injury of head, initial encounter S09.90XA ; Fall, initial encounter W19.XXXA ; Disorientation R41.0 and Acute cystitis with hematuria N30.01 [facility] [place] [address] [place] [id number] [place] [address] 79329- 5133 Jan, Gastroesophageal reflux disease, esophagitis presence not specified K21.9 ; Post-menopausal Z78.0 and Migraine without aura and without status migrainosus, not intractable G43.009 [facility] [place] [address] [place] [id number] [place] [address] 72996- 8807 Jan, [facility] [place] [address] [place] [id number] [place] [address] 62412- 8014 Jan, Generalized anxiety disorder F41.1 ; Major depressive disorder, recurrent episode, moderate F33.1 ; Vascular dementia without behavioral disturbance F01.50 and Unspecified psychosis F29 [facility] [id number] [place] [address] 13855- 3738 Jan, Pneumonia of left lower lobe due to infectious organism J18.1 [facility] [address] [place] [address]- 5598 05 Jan, 2017 Migraine without aura and with status migrainosus, not intractable G43.001 [facility] [address] [place] [id number] [place] [address] 85253 -2732 Jan, Migraine without aura and without status migrainosus, not intractable G43.009 [facility] [address] [place] [id number] [place] [address] 68230- 7648 Dec, Hematoma T14.8 [facility] [address] [place] [id number] [place] [address] 81898- 3109 Dec, [facility] [address] [place] [id number] [place] [address] 65301 -5985 Nov, Fatigue, unspecified type R53.83 [place] [address] [place] [id number] [place] [address] 25751- 8910 Nov, Scabies B86 and Coronary artery disease involving [place] coronary artery of [place] 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 I25.118 [facility] [place] [address] [place] [id number] [place] [address] 26624- 7512 Nov, [facility] [address] [place] [id number] [place] [address] 83529- 0200 Nov, [facility] [address] [place] [id number] [place] [address] 19555- 2374 Oct, [facility] [address] [place] [id number] [place] [address] 56381- 8168 Oct, Generalized anxiety disorder F41.1 and Major depressive disorder, recurrent episode, moderate F33.1 [facility] [address] 76917- 3329 Oct, Cramp of both lower extremities R25.2 [facility] [address] [place] [id number] [place] [address] 42152- 4622 Oct, Leg cramps R25.2 [facility] [address] [place] [address]- 7118 Oct, Chronic pain syndrome G89.4 [facility] [address] [place] [id number] [place] [address] 16315- 8285 17 Oct, 2016 [facility] [address] [place] [id number] [place] [address] 53755- 8192 Oct, [facility] [address] [place] [id number] [place] [address] 09997- 6488 Oct, Routine gynecological examination Z01.419 and Screening for breast cancer Z12.31 [facility] [address] [place] [id number] [place] [address] 87308- 1741 28 Sep, 2016 Diarrhea R19.7 [facility] [address] [place] [id number] [place] [address] 12213- 4329 Sep, Back pain M54.9 [facility] [address] [place] [id number] [place] [address] 35909- 7606 Sep, [facility] [address] [place] [id number] [place] [address] 97889- 3960 Sep, [facility] [address] [place] [id number] [place] [address] 08566 -4042 August, Xeroderma Q80.9 [facility] [address] [place] [id number] [place] [address] 51936- 0482 August, Dementia without behavioral disturbance, unspecified dementia type F03.90 [facility] [address] [place] [id number] [place] [address] 08346- 9080 August, Chronic pain syndrome G89.4 [facility] [address] [place] [id number] [place] [address] 99753- 9705 August, [facility] [address] [place] [id number] [place] [address] 06707- 6422 August, Hyperlipidemia E78.5 ; Other fatigue R53.83 and Other specified hypotension I95.89 [facility] [address] [place] [address] 36[address] -5917 August, Dysuria R30.0 ; Other fatigue R53.83 and Other specified hypotension I95.89 [place] [address] 16550- 9924 August, [place] [address] 62630- 6171 Jul, Pain in left knee M25.562 and Gastroenteritis K52.9 [place] [address] 40182- 3319 Jul, [place] [address] 53587- 0394 Jul, Diarrhea R19.7 [facility] [address] 05359 -4742 Jul, Spider bite, accidental or unintentional, initial encounter T63.301A [place] [address] 14267- 8708 Jul, Primary osteoarthritis of right knee M17.11 and Arthritis M19.90 [place] [address] 67424- 3615 Jul, Generalized anxiety disorder F41.1 and Major depressive disorder, recurrent episode, moderate F33.1 [place] [address] 37619- 8419 Jul, Type 2 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 and Temporal headache R51 [place] [address] 84363- 6098 Jul, Back pain M54.9 [place] [address] 68632- 5102 Jul, [place] [address] 30817- 8644 Jul, [place] [address] 58474- 2349 Jun, Nausea R11.0 [facility] [address] [place] [id number] [place] [address] 34912 -7938 Jun, Acute suppurative otitis media of both ears without spontaneous rupture of tympanic membranes, recurrence not specified H66.003 and COPD exacerbation J44.1 [place] [address] 54994- 6825 Jun, Generalized anxiety disorder F41.1 [facility] [address] 96247- 9700 16 Jun, 2016 [facility] [address] 58307 -8020 Jun, [facility] [address] 45683 -4499 Jun, Shortness of breath R06.02 and COPD exacerbation J44.1 [place] [address] 51656- 5747 10 Jun, 2016 Eczema, unspecified type L30.9 [place] [address] 28373- 6174 Jun, [place] [address] 10286- 5839 May, [place] [address] 27998- 9630 May, Muscle cramping R25.2 [place] [address] 25064- 2006 May, [facility] [address] 61509- 5324 Apr, Diarrhea R19.7 [facility] [address] 10397- 2662 Apr, [place] [address] 46380- 2147 Apr, Chronic pain syndrome G89.4 [place] [address] 47931- 4504 16 Apr, 2016 Cramp of both lower extremities R25.2 and Vascular dementia without behavioral disturbance F01.50 [facility] [place] [address] 73377- 8925 Apr, Type 2 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 and Cigarette nicotine dependence without complication F17.210 [facility] [address] 60445- 0590 Mar, Generalized anxiety disorder F41.1 [place] [address] 31042- 7336 Feb, Generalized anxiety disorder F41.1 and Major depressive disorder, recurrent episode, moderate F33.1 [place] [address] 20326- 6564 Feb, [facility] [address] 28289 -2568 05 Feb, 2016 Dysuria R30.0 and Acute cystitis with hematuria N30.01 [place] [address] 34159- 3387 31 Jan, 2016 [place] [address] 34899- 1946 Jan, [facility] [place] [address] 66710- 5132 Jan, [facility] [address] 19046- 0306 11 Jan, 2016 [facility] [address] 95620 -0537 10 Jan, 2016 Wasp sting, accidental or unintentional, initial encounter T63.461A [facility] [address] 80396- 4170 Jan, Encounter for immunization Z23 [facility] [address] [place] [id number] [place] [address] 31905- 0746 Jan, [facility] [address] [place] [id number] [place] [address] 61019- 6932 Jan, [facility] [address] [place] [id number] [place] [address] 27153- 4936 28 Dec, 2015 Generalized anxiety disorder F41.1 and Major depressive disorder, recurrent episode, moderate F33.1 [facility] [address] [place] [id number] [place] [address] 42860- 5604 21 Dec, 2015 Routine gynecological examination Z01.419 ; Postmenopausal Z78.0 ; Screening breast examination Z12.39 ; Osteopenia M85.80 and Breast cancer screening Z12.39 [facility] [address] [place] [id number] [place] [address] 78384- 3269 20 Dec, 2015 [facility] [id number] [place] [address] 39991- 5438 19 Dec, 2015 [facility] [id number] [place] [address] 02820- 9369 16 Dec, 2015 [facility] [id number] [place] [address] 95307- 1114 16 Dec, 2015 [facility] [id number] [place] [address] 98021- 7228 14 Dec, 2015 [facility] [id number] [place] [address] 28156- 0143 06 Dec, 2015 [facility] [id number] [place] [address] 18111- 7684 Nov, [facility] [id number] [place] [address] 25953 -8931 Nov, Cough R05 ; Other viral agents as the cause of diseases classified elsewhere B97.89 and Acute upper respiratory infection, unspecified J06.9 [facility] [address] [place] [address]- 0523 Nov, [facility] [address] [address]- 1614 Nov, [facility] [address], [place] [address]- 8673 Nov, [facility] [address] [address]- 9862 Nov, [facility] [address] [address]- 9307 Nov, [facility] [address], [place] [address]- 9658 Oct, [facility] [address] [address]- 9846 Oct, [facility] [address], [place] [address]- 9383 Oct, [facility] [address] [address]- 1193 Oct, Chronic pain syndrome G89.4 [facility] [address], [place] [address] 8998 Sep, Generalized anxiety disorder F41.1 and Major depressive disorder, recurrent episode, moderate F33.1 [facility] [address], [place] [address]- 9220 Sep, [facility] [address], [place] [address]- 4009 Sep, [facility] [address], [place] [address]- 3414 14 Sep, 2015 Generalized anxiety disorder F41.1 [facility] [address], [place] [address]- 4058 13 Sep, 2015 Cramp of both lower extremities R25.2 and Cervicalgia M54.2 [facility] [id number] [place] [address] 59695- 9342 Sep, Generalized anxiety disorder F41.1 [facility] [id number] [place] [address] 35130- 3546 Sep, [facility] [id number] [place] [address] 59630 -0368 August, Rash R21 ; Itching L29.9 and Allergic response, subsequent encounter T78.40XD [facility] [address] 97182- 1323 August, Primary insomnia F51.01 [facility] [id number] [place] [address] 10881 -9208 August, Rash R21 ; Itching L29.9 and Allergic response, initial encounter T78.40XA [facility] [id number] [place] [address] 76056- 3999 August, [facility] [id number] [place] [address] 80702- 5021 August, Cramp of both lower extremities R25.2 [facility] [id number] [place] [address] 15549- 5538 August, Back pain M54.9 [facility] [id number] [place] [address] 56729- 8481 August, [facility] [id number] [place] [address] 57564- 5300 August, [facility] [id number] [place] [address] 72496 -2131 August, Cramp of both lower extremities R25.2 [facility] [id number] [place] [address] 68814- 3725 August, [facility] [id number] [place] [address] 34292- 3815 August, Syncope R55 ; Paroxysmal atrial fibrillation I48.0 ; Dementia without behavioral disturbance, unspecified dementia type F03.90 and Chronic pain syndrome G89.4 [facility] [id number] [place] [address] 21160- 4408 August, Type 2 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 and Syncope R55 [facility] [id number] [place] [address] 38705- 6741 Jul, [facility] [id number] [place] [address] 87444- 6193 Jul, [facility] [id number] [place] [address] 34353- 5898 Jul, [facility] [id number] [place] [address] 54320- 5557 Jul, [facility] [id number] [place] [address] 60066- 9241 Jul, [facility] [id number] [place] [address] 11693- 7708 Jul, UTI (urinary tract infection) N39.0 [facility] [id number] [place] [address] 83385- 9860 Jul, [facility] [id number] [place] [address] 22992- 6907 Jul, Major depressive disorder, recurrent episode, moderate F33.1 and Generalized anxiety disorder F41.1 [facility] [id number] [place] [address] 86821- 9547 Jul, Generalized anxiety disorder F41.1 [facility] [id number] [place] [address] 44558- 7888 Jul, Diarrhea R19.7 [facility] [id number] [place] [address] 80975- 1706 Jul, [facility] [address], [place] [address]- 0025 Jun, [facility] [address], [place] [address]- 6060 Jun, Eczema L30.9 [facility] [address], [place] [address]- 2866 Jun, [facility] [address], [place] [address]- 3171 Jun, COPD (chronic obstructive pulmonary disease) J44.9 [facility] [address], [place] [address]- 9016 Jun, [facility] [address], [place] [address]- 1246 Jun, Major depressive disorder, recurrent episode, moderate F33.1 and Generalized anxiety disorder F41.1 [facility] [address], [place] [address]- 3361 May, [facility] [address], [place] [address]- 8718 May, UTI (urinary tract infection) N39.0 [facility] [address], [place] [address]- 1676 May, [facility] [address], [place] [address]- 0339 May, [facility] [address], [place] [address]- 2041 May, [facility] [address], [place] [address]- 6550 May, [facility] [address], [place] [address]- 1456 Apr, Major depressive disorder, recurrent episode, moderate F33.1 and Generalized anxiety disorder F41.1 [facility] [address], [place] [address]- 5724 Apr, COPD (chronic obstructive pulmonary disease) J44.9 [facility] [id number] [place] [address] 55757- 7584 Apr, [facility] [id number] [place] [address] 52145- 8891 Apr, Atrial flutter I48.92 [facility] [id number] [place] [address] 89161- 4904 Apr, [facility] [id number] [place] [address] 98718- 3006 Apr, [facility] [id number] [place] [address] 84978- 3426 Mar, [facility] [id number] [place] [address] 35793- 4579 Mar, [facility] [id number] [place] [address] 26270- 6875 Mar, [facility] [id number] [place] [address] 92151- 1517 Mar, Hyperlipidemia E78.5 ; Type 2 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 ; Major depressive disorder, recurrent episode, moderate F33.1 and Chronic pain syndrome G89.4 [facility] [id number] [place] [address] 23318- 1625 16 Mar, 2015 [facility] [id number] [place] [address] 97807- 3445 Mar, [facility] [id number] [place] [address] 83944- 5952 Mar, [facility] [id number] [place] [address] 72662- 3113 Mar, [facility] [id number] [place] [address] 28102- 2384 30 Feb, 2015 COPD (chronic obstructive pulmonary disease) J44.9 and Back pain M54.9 [facility] [id number] [place] [address] 59487- 6233 Feb, [facility] [address], [place] [address]- 2434 Feb, [facility] [id number] [place] [address] 40991- 0242 Feb, [facility] [id number] [place] [address] 00418- 0894 Feb, [facility] [id number] [place] [address] 18615- 7409 Feb, [facility] [id number] [place] [address] 13825- 4314 Feb, [facility] [id number] [place] [address] 79055- 2058 Feb, [facility] [id number] [place] [address] 71959- 0646 Feb, [facility] [id number] [place] [address] 62974- 6325 Feb, Diabetes E11.9 ; Back pain M54.9 and COPD (chronic obstructive pulmonary disease) J44.9 [facility] [id number] [place] [address] 93798- 4400 Jan, [facility] [id number] [place] [address] 53442- 7293 Jan, Major depression, recurrent F33.9 and Generalized anxiety disorder F41.1 [facility] [address], [place] [address]- 5029 Jan, Chronic pain G89.29 [facility] [id number] [place] [address] 41528- 1319 Jan, [facility] [address], [place] [address]- 2737 Jan, [facility] [id number] [place] [address] 76173- 2282 Jan, [facility] [id number] [place] [address] 17004- 8821 Jan, [facility] [id number] [place] [address] 59890- 3278 Jan, Nicotine dependence F17.200 [facility] [id number] [place] [address] 31460- 2527 Jan, Nicotine dependence F17.200 and Back pain M54.9 [facility] [id number] [place] [address] 14789- 6473 Jan, [facility] [id number] [place] [address] 63725- 5843 28 Dec, 2014 [facility] [id number] [place] [address] 67975- 3473 25 Dec, 2014 Anxiety, generalized 300.02 and Major depression, recurrent 296.30 [facility] [id number] [place] [address] 95200- 6140 24 Dec, 2014 [facility] [id number] [place] [address] 58134- 9314 21 Dec, 2014 [facility] [id number] [place] [address] 96903- 1642 17 Dec, 2014 [facility] [id number] [place] [address] 02456- 3279 15 Dec, 2014 [facility] [id number] [place] [address] 99083- 1928 14 Dec, 2014 [facility] [id number] [place] [address] 99664- 5214 11 Dec, 2014 [facility] [id number] [place] [address] 61585- 7762 10 Dec, 2014 [facility] [id number] [place] [address] 90889- 1988 08 Dec, 2014 Skin tear 879.8 [facility] [address] [place] [address]- 3193 08 Dec, 2014 Routine gynecological examination V72.31 ; Breast cancer screening V76.10 and Family history of breast cancer in first degree relative V16.3 [facility] [id number] [place] [address] 81153- 9630 Dec, [facility] [id number] [place] [address] 57362- 7363 Dec, [facility] [id number] [place] [address] 70904- 8447 Nov, [facility] [id number] [place] [address] 84206- 4863 Nov, [facility] [id number] [place] [address] 96206- 8233 Nov, Poor balance 781.99 and Vascular dementia, uncomplicated 290.40 [facility] [id number] [place] [address] 56871- 3186 Nov, [facility] [id number] [place] [address] 41813- 2458 Nov, Major depression, recurrent 296.30 and Anxiety, generalized 300.02 [facility] [id number] [place] [address] 29750- 0346 Nov, [facility] [id number] [place] [address] 62914- 3359 Nov, [facility] [id number] [place] [address] 48007- 9050 Nov, [facility] [id number] [place] [address] 51859- 9311 Nov, [facility] [id number] [place] [address] 56867- 6151 Nov, Vascular dementia, uncomplicated 290.40 and Lumbago 724.2 [facility] [id number] [place] [address] 27324- 7120 Nov, [facility] [address], [place] [address]- 2188 Nov, [facility] [id number] [address]- 7791 Nov, [facility] [address], [place] [address]- 1826 Oct, [facility] [id number] [place] [address] 62153- 7771 Oct, [facility] [id number] [place] [address] 75532- 1684 Oct, [facility] [id number] [place] [address] 70868- 5133 Oct, COPD (chronic obstructive pulmonary disease) 496 and Hyperlipidemia 272.4 [facility] [id number] [place] [address] 19523- 6526 Oct, Major depression, recurrent 296.30 and Anxiety, generalized 300.02 [facility] [address], [place] [address]- 9954 Oct, [facility] [address], [place] [address]- 5752 Oct, [facility] [address], [place] [address]- 1382 Oct, [facility] [address], [place] [address]- 7145 Sep, Lumbago 724.2 and Anxiety state, unspecified 300.00 [facility] [address], [place] [address]- 1851 Sep, [facility] [address], [place] [address]- 6618 Sep, [facility] [address], [place] [address]- 7262 August, [facility] [address], [place] [address]- 2800 August, Major depression, recurrent 296.30 ; Anxiety, generalized 300.02 and No condition on [place] II V71.09 [facility] [address] [facility] [id number] [place] [address]- 9956 August, [facility] [address] [place] [address]- 0106 August, [facility] [address] [facility] [address] [id number] [place] [address]- 7294 29 Jul, 2014 [facility] [address] [place] [address]- 2209 Jul, [facility] [address] [place] [address]- 9995 Jul, [facility] [address] [place] [address]- 8036 Jun, [facility] [address] [place] [address]- 4953 30 Jun, 2014 [facility] [address] [place] [address]- 2138 Jun, [facility] [address] [place] [address]- 4563 Jun, [facility] [address] [place] [address]- 2231 Jun, [facility] [id number] [place] [address]- 7805 Jun, [facility] [address] [place] [address]- 1034 23 Jun, 2014 [facility] [id number] [place] [address]- 0816 17 Jun, 2014 [facility] [id number] [place] [address]- 7517 Jun, [facility] [place] [facility] [address] [id number] [place] [address]- 1033 13 Jun, 2014 [facility] [place] [facility] [address] [id number] [place] [address]- 1061 10 Jun, 2014 [facility] [place] [facility] [address] [id number] [place] [address]- 2421 10 Jun, 2014 [facility] [place] [facility] [address] [id number] [place] [address]- 0004 07 Jun, 2014 [facility] [place] [facility] [address] [id number] [place] [address]- 1552 07 Jun, 2014 [facility] [place] [facility] [address] [id number] [place] [address]- 8016 Jun, 2014 [facility] [place] [facility] [address] [facility] [id number] [place] [address]- 0984 Jun, 2014 [facility] [place] [facility] [address] [id number] [place] [address]- 1134 May, 2014 [facility] [place] [facility] [address] [id number] [place] [address]- 5457 May, 2014 [facility] [place] [facility] [address] [facility] [id number] [place] [address]- 9541 May, 2014 [facility] [place] [facility] [address] [id number] [place] [address]- 4242 May, 2014 [facility] [place] [facility] [address] [id number] [place] [address]- 1874 May, 2014 [facility] [place] [facility] [address] [id number] [place] [address]- 2455 May, 2014 [facility] [place] [facility] [address] [id number] [place] [address]- 2069 19 May, 2014 [facility] [place] [facility] [address] [facility] [address] [id number] [place] [address]- 9264 12 May, 2014 [facility] [place] [facility] [address] [facility] [address] [id number] [place] [address]- 1256 May, 2014 [facility] [place] [facility] [address] [id number] [place] [address]- 4136 May, 2014 [facility] [place] [facility] [address] [id number] [place] [address]- 0496 May, 2014 [facility] [place] [facility] [address] [id number] [place] [address]- 7206 May, 2014 [facility] [place] [facility] [address] [id number] [place] [address]- 3241 May, [facility] [place] [facility] [address] [id number] [place] [address]- 6124 May, [facility] [place] [facility] [address] [id number] [place] [address]- 8347 Apr, [facility] [place] [facility] [address] [id number] [place] [address]- 9107 Apr, [facility] [place] [facility] [address] [id number] [place] [address]- 4351 Apr, [facility] [place] [facility] [address] [id number] [place] [address]- 0593 Apr, [facility] [place] [facility] [address] [id number] [place] [address]- 8390 Apr, [facility] [place] [facility] [address] [id number] [place] [address]- 6367 Apr, [facility] [place] [facility] [address] [id number] [place] [address]- 6758 Apr, [facility] [place] [facility] [address] [id number] [place] [address]- 7380 Apr, [facility] [place] [facility] [address] [id number] [place] [address]- 4358 Apr, [facility] [place] [facility] [address] [id number] [place] [address]- 3777 Apr, [facility] [place] [facility] [address] [id number] [place] [address]- 5040 Apr, [facility] [place] [facility] [address] [id number] [place] [address]- 3346 Apr, [facility] [place] [facility] [address] [id number] [place] [address]- 8952 Mar, [facility] [place] [facility] [address] [id number] [place] [address]- 3044 Mar, [facility] [place] [facility] [address] [id number] [place] [address]- 3850 30 Mar, 2014 [facility] [place] [facility] [address] [id number] [place] [address]- 4416 30 Mar, 2014 [facility] [place] [facility] [address] [id number] [place] [address]- 3074 Mar, [facility] [place] [facility] [address] [id number] [place] [address]- 1347 29 Mar, 2014 [facility] [place] [facility] [address] [id number] [place] [address]- 2065 Mar, [facility] [place] [facility] [address] [id number] [place] [address]- 8581 19 Mar, 2014 [facility] [place] [facility] [address] [id number] [place] [address]- 3534 15 Mar, 2014 [facility] [place] [facility] [address] [id number] [place] [address]- 9677 15 Mar, 2014 [facility] [place] [facility] [address] [id number] [place] [address]- 2042 15 Mar, 2014 [facility] [place] [facility] [address] [id number] [place] [address]- 5213 15 Mar, 2014 [facility] [place] [facility] [address] [id number] [place] [address]- [address] 15 Mar, 2014 [facility] [place] [facility] [address] [id number] [place] [address] 15 Mar, 2014 [facility] [place] [facility] [address] [id number] [place] [address] Mar, [facility] [place] [facility] [address] [id number] [place] [address] Mar, [facility] [place] [facility] [address] [id number] [place] [address] Mar, [facility] [place] [facility] [address] [id number] [place] [address] Mar, [facility] [place] [facility] [address] [id number] [place] [address] Mar, [facility] [place] [facility] [address] [id number] [place] [address] Mar, [facility] [place] [facility] [address] [id number] [place] [address] Feb, [facility] [place] [facility] [address] [id number] [place] [address] Feb, [facility] [place] [facility] [address] [id number] [place] [address] Feb, [facility] [place] [facility] [address] [facility] [id number] [place] [address] Feb, [facility] [place] [facility] [address] [id number] [place] [address] Feb, [facility] [place] [facility] [address] [id number] [place] [address]- [address] Feb, [facility] [place] [facility] [address] [id number] [place] [address]- [address] Feb, [facility] [place] [facility] [address] [id number] [place] [address] Feb, [facility] [place] [facility] [address] [id number] [place] [address] Feb, [facility] [place] [facility] [address] [id number] [place] [address] Feb, [facility] [place] [facility] [address] [id number] [place] [address] Feb, [facility] [place] [facility] [address] [id number] [place] [address] Feb, [facility] [place] [facility] [address] [id number] [place] [address] Feb, [facility] [place] [facility] [address] [id number] [place] [address] Feb, [facility] [place] [facility] [address] [id number] [place] [address] Feb, [facility] [place] [facility] [address] [id number] [place] [address] Feb, [facility] [place] [facility] [address] [id number] [place] [address] Feb, [facility] [place] [facility] [address] [id number] [place] [address] Jan, [facility] [place] [facility] [address] [id number] [place] [address] Jan, [facility] [place] [facility] [address] [id number] [place] [address] Jan, [facility] [place] [facility] [address] [id number] [place] [address] Jan, [facility] [place] [facility] [address] [id number] [place] [address] Jan, [facility] [place] [facility] [address] [id number] [place] [address] Jan, [facility] [place] [facility] [address] [id number] [place] [address] 16 Jan, 2014 [facility] [place] [facility] [address] [id number] [place] [address] Jan, [facility] [place] [facility] [address] [id number] [place] [address] Jan, [facility] [place] [facility] [address] [id number] [place] [address] Jan, [facility] [place] [facility] [address] [id number] [place] [address] Jan, [facility] [place] [facility] [address] [id number] [place] [address]207 Dec, [facility] [place] [facility] [address] [id number] [place] [address] 1154 Dec, [facility] [place] [facility] [address] [id number] [place] [address] 7137 Nov, [facility] [place] [facility] [address] [id number] [place] [address] 2284 Nov, [facility] [place] [facility] [address] [id number] [place] [address] 7895 Nov, [facility] [place] [facility] [address] [id number] [place] [address] 8735 Nov, [facility] [place] [facility] [address] [id number] [place] [address] 5996 Nov, [facility] [place] [facility] [address] [id number] [place] [address] 4582 Nov, [facility] [place] [facility] [address] [id number] [place] [address] 5457 Nov, [facility] [place] [facility] [address] [id number] [place] [address] 5331 Oct, [facility] [place] [facility] [address] [id number] [place] [address] 0365 Oct, [facility] [place] [facility] [address] [id number] [place] [address] 9179 Oct, [facility] [place] [facility] [address] [id number] [place] [address]- 1047 Oct, [facility] [place] [facility] [address] [id number] [place] [address] 3528 Sep, [facility] [place] [facility] [address] [id number] [place] [address]- 5011 Sep, [facility] [place] [facility] [address] [id number] [place] [address] 7070 Sep, [facility] [place] [facility] [address] [id number] [place] [address]- 9441 Sep, [facility] [place] [facility] [address] [id number] [place] [address] 3356 Sep, [facility] [place] [facility] [address] [id number] [place] [address]- 1841 Sep, [facility] [place] [facility] [address] [id number] [place] [address] 5489 Sep, [facility] [place] [facility] [address] [id number] [place] [address] 4778 Sep, [facility] [place] [facility] [address] [id number] [place] [address]- 8672 Sep, [facility] [place] [facility] [address] [id number] [place] [address]- 7376 Sep, [facility] [place] [facility] [address] [id number] [place] [address]- 1209 Sep, [facility] [place] [facility] [address] [id number] [place] [address]- 5346 Sep, [facility] [place] [facility] [address] [id number] [place] [address]- 3678 Sep, [facility] [place] [facility] [address] [id number] [place] [address] 3722 Sep, [facility] [place] [facility] [address] [id number] [place] [address] 1410 August, [facility] [address] [id number] [place] [address] 9634 August, [facility] [place] [facility] [address] [id number] [place] [address] 9892 August, [facility] [place] [facility] [address] [id number] [place] [address] 7379 August, [facility] [place] [facility] [address] [id number] [place] [address] 5962 August, [facility] [place] [facility] [address] [id number] [place] [address] 9812 August, [facility] [place] [facility] [address] [id number] [place] [address] 4913 August, [facility] [place] [facility] [address] [id number] [place] [address]- 5773 August, [facility] [place] [facility] [address] [id number] [place] [address] 8371 August, [facility] [place] [facility] [address] [id number] [place] [address]- 0210 August, [facility] [place] [facility] [address] [id number] [place] [address]- 0223 August, [facility] [place] [facility] [address] [id number] [place] [address]- 0478 August, [facility] [place] [facility] [address] [id number] [place] [address]- 8500 August, [facility] [place] [facility] [address] [id number] [place] [address]- 3808 August, [facility] [place] [facility] [address] [id number] [place] [address] August, [facility] [place] [facility] [address] [id number] [place] [address] August, [facility] [place] [facility] [address] [id number] [place] [address] 2217 August, [facility] [place] [facility] [address] [id number] [place] [address] 9168 August, [facility] [place] [facility] [address] [id number] [place] [address]- 6511 August, [facility] [place] [facility] [address] [id number] [place] [address] 6372 Jul, [facility] [place] [facility] [address] [id number] [place] [address]- 1382 Jul, [facility] [place] [facility] [address] [id number] [place] [address]- 4868 Jul, [facility] [place] [facility] [address] [id number] [place] [address]- 6442 Jul, [facility] [place] [facility] [address] [id number] [place] [address]- 0500 Jun, [facility] [place] [facility] [address] [id number] [place] [address]- 0620 Jun, [facility] [place] [facility] [address] [id number] [place] [address]- 3686 Jun, [facility] [place] [facility] [address] [id number] [place] [address]- 0031 24 Jun, 2013 [facility] [place] [facility] [address] [id number] [place] [address]- 8739 Jun, [facility] [place] [facility] [address] [id number] [place] [address]- 3746 17 Jun, 2013 [facility] [place] [facility] [address] [id number] [place] [address]- 6548 14 Jun, 2013 [facility] [place] [facility] [address] [id number] [place] [address]- 6038 14 Jun, 2013 [facility] [place] [facility] [address] [id number] [place] [address]- 3208 06 Jun, 2013 [facility] [place] [facility] [address] [id number] [place] [address]- 1058 Jun, [facility] [place] [facility] [address] [id number] [place] [address]- 2366 May, [facility] [place] [facility] [address] [id number] [place] [address] 2546 May, [facility] [place] [facility] [address] [id number] [place] [address]- 6670 May, [facility] [place] [facility] [address] [id number] [place] [address]- 2476 May, [facility] [place] [facility] [address] [id number] [place] [address]- 6356 May, [facility] [place] [facility] [address] [facility] [id number] [place] [address]- 5717 May, [facility] [place] [facility] [address] [id number] [place] [address]- 2965 May, [facility] [place] [facility] [address] [facility] [id number] [place] [address]- 4061 May, [facility] [place] [facility] [address] [facility] [id number] [place] [address]- 6523 May, [facility] [place] [facility] [address] [facility] [id number] [place] [address]- 8101 May, [facility] [place] [facility] [address] [facility] [id number] [place] [address]- 2545 May, [facility] [place] [facility] [address] [facility] [id number] [place] [address]- 3342 17 May, 2013 [facility] [place] [facility] [address] [id number] [place] [address]- 7433 May, [facility] [place] [facility] [address] [facility] [id number] [place] [address]- 4926 May, [facility] [place] [facility] [address] [facility] [id number] [place] [address]- 7634 10 May, 2013 [facility] [address] [id number] [place] [address]- 9566 07 May, 2013 [facility] [place] [facility] [address] [id number] [place] [address] 2546 07 May, 2013 [facility] [address] [id number] [place] [address]- 2046 Apr, [facility] [address] [id number] [place] [address]- 2317 Apr, [facility] [address] [id number] [place] [address]- 1806 Apr, [facility] [address] [id number] [place] [address]- 9182 Apr, [facility] [address] [id number] [place] [address]- 6059 Apr, [facility] [address] [id number] [place] [address]- 4058 Apr, [facility] [address] [id number] [place] [address]- 9475 Apr, [facility] [address] [id number] [place] [address]- 6361 Mar, [facility] [place] [facility] [address] [id number] [place] [address]- 3586 Mar, [facility] [address] [id number] [place] [address]- 2546 Mar, [facility] [place] [facility] [address] [id number] [place] [address]- 7296 Mar, [facility] [place] [facility] [address] [id number] [place] [address]- 2546 Mar, [facility] [place] [facility] [address] [id number] [place] [address]- 3439 Mar, [facility] [place] [facility] [address] [id number] [place] [address]- 0038 Mar, [facility] [place] [facility] [address] [id number] [place] [address]- 6299 Mar, [facility] [place] [facility] [address] [id number] [place] [address] Mar, [facility] [place] [facility] [address] [id number] [place] [address]- 6171 Mar, [facility] [place] [facility] [address] [id number] [place] [address]- 8026 Mar, [facility] [place] [facility] [address] [id number] [place] [address]- 9442 Feb, [facility] [place] [facility] [address] [id number] [place] [address]- 3691 Feb, [facility] [place] [facility] [address] [id number] [place] [address]- 4006 Feb, [facility] [place] [facility] [address] [id number] [place] [address]- 7106 Feb, [facility] [place] [facility] [address] [id number], [place] [address]- 3006 Feb, [facility] [place] [facility] [address] [id number], [place] [address]- 1226 19 Feb, 2013 [facility] [place] [facility] [address] [id number], [place] [address]- 4173 15 Feb, 2013 [facility] [place] [facility] [address] [id number] [place] [address]- 8377 14 Feb, 2013 [facility] [place] [facility] [address] [id number] [place] [address]- 1820 14 Feb, 2013 [facility] [place] [facility] [address] [id number], [place] [address]- 8588 13 Feb, 2013 [facility] [place] [facility] [address] [id number] [place] [address]- 4631 Feb, [facility] [place] [facility] [address] [id number] [place] [address]- 8102 Feb, [facility] [place] [facility] [address] [id number], [place] [address]- 1794 Feb, [facility] [place] [facility] [address] [id number] [place] [address]- 9283 Feb, [facility] [place] [facility] [address] [id number] [place] [address]- 8705 Feb, [facility] [place] [facility] [address] [id number] [place] [address]- 7286 Feb, [facility] [place] [facility] [address] [id number] [place] [address]- 5252 Jan, [facility] [place] [facility] [address] [id number] [place] [address]- 4844 Jan, [facility] [place] [facility] [address] [id number], [place] [address]- 1773 Jan, [facility] [place] [facility] [address] [id number] [place] [address]- 9719 Jan, [facility] [place] [facility] [address] [id number] [place] [address]- 0657 Jan, [facility] [place] [facility] [address] [id number] [place] [address]- 3211 Jan, [facility] [place] [facility] [address] [id number], [place] [address]- 7666 Jan, [facility] [place] [facility] [address] [id number], [place] [address]- 2445 10 Jan, 2013 [facility] [place] [facility] [address] [id number], [place] [address]- 2512 10 Jan, 2013 [facility] [place] [facility] [address] [id number], [place] [address]- 9632 27 Dec, 2012 [facility] [place] [facility] [address] [id number] [place] [address]- 0273 20 Dec, 2012 [facility] [place] [facility] [address] [id number] [place] [address] 2546 19 Dec, 2012 [facility] [place] [facility] [address] [id number] [place] [address] 2546 10 Dec, 2012 [facility] [place] [facility] [address] [id number] [place] [address] 2546 04 Dec, 2012 [facility] [place] [facility] [address] [id number] [place] [address] 2544 03 Dec, 2012 [facility] [place] [facility] [address] [id number] [place] [address]- 8611 Nov, [facility] [place] [facility] [address] [id number] [place] [address]- 0133 Nov, [facility] [place] [facility] [address] [id number] [place] [address]- 0628 Nov, [facility] [place] [facility] [address] [id number] [place] [address]- 4689 Nov, [facility] [place] [facility] [address] [id number] [place] [address]- 6147 Nov, [facility] [place] [facility] [address] [id number] [place] [address]- 2548 Nov, [facility] [place] [facility] [address] [id number] [place] [address]- 2547 Nov, [facility] [place] [facility] [address] [id number] [place] [address] 2548 Nov, [facility] [place] [facility] [address] [id number] [place] [address] 254 14 Nov, 2012 [facility] [place] [facility] [address] [id number] [place] [address]- 254 07 Nov, 2012 [facility] [place] [facility] [address] [id number] [place] [address]- 7051 Oct, [facility] [place] [facility] [address] [id number] [place] [address]- 6964 Oct, 2012 [facility] [place] [facility] [address] [id number] [place] [address]- 1486 Oct, [facility] [place] [facility] [address] [id number] [place] [address]- 3850 Oct, 2012 [facility] [place] [facility] [address] [id number] [place] [address]- 4631 Oct, 2012 [facility] [place] [facility] [address] [id number] [place] [address]- 1132 Oct, [facility] [place] [facility] [address] [id number] [place] [address]- 8595 Oct, [facility] [place] [facility] [address] [id number] [place] [address]- 3803 Oct, [facility] [place] [facility] [address] [id number] [place] [address]- 6278 Sep, [facility] [place] [facility] [address] [id number] [place] [address]- 5285 Sep, [facility] [place] [facility] [address] [id number] [place] [address]- 2210 Sep, [facility] [place] [facility] [address] [id number], [place] [address]- 0426 Sep, [facility] [place] [facility] [address] [id number], [place] [address]- 0347 Sep, [facility] [place] [facility] [address] [id number] [place] [address]- 6828 Sep, [facility] [place] [facility] [address] [id number], [place] [address]- 8316 Sep, [facility] [place] [facility] [address] [id number] [place] [address]- 1578 Sep, [facility] [place] [facility] [address] [id number] [place] [address]- 8032 August, [facility] [address] [id number] [place] [address]- 2018 August, [facility] [address] [id number] [place] 9426 August, [facility] [address] [id number] [place] [address]- 6780 August, [facility] [address] [id number] [place] [address]- 7592 August, [facility] [address] [id number] [place] [address] Jul, [facility] [address] [id number] [place] [address]- 7820 Jul, [facility] [address] [id number] [place] [address]- 7665 Jul, [facility] [address] [id number] [place] [address]- 1922 Jul, [facility] [address] [id number] [place] [address]- 7773 Jul, [facility] [address] [id number] [place] [address]- 2128 Jun, [facility] [address] [id number] [place] [address]- 0460 18 Jun, 2012 [facility] [address] [id number] [place] [address]- 5130 15 Jun, 2012 [facility] [address] [id number] [place] [address]- 9988 14 Jun, 2012 [facility] [address] [id number] [place] [address]- 3620 12 Jun, 2012 [facility] [address] [id number] [place] [address]- 4096 08 Jun, 2012 [facility] [address] [id number] [place] [address]- 4727 08 Jun, 2012 [facility] [address] [id number] [place] [address]- 3143 Jun, [facility] [address] [id number] [place] [address]- 8155 Jun, [facility] [address] [id number] [place] [address]- 5474 May, [facility] [address] [id number] [place] [address]- 5262 May, [facility] [address] [id number] [place] [address]- 4361 May, [facility] [address] [id number] [place] [address]- 9731 May, [facility] [address] [id number] [place] [address]- 3219 Apr, [facility] [address] [id number] [place] [address]- 5624 Apr, [facility] [address] [id number] [place] [address]- 0615 Apr, [facility] [address] [id number] [place] [address]- 4826 Apr, [facility] [address] [id number], [place] [address]- 8419 Apr, [facility] [address] [id number] [place] [address]- 5917 Apr, [facility] [address] [id number] [place] [address]- 7554 Apr, [facility] [address] [id number] [place] [address]- 6141 Mar, [facility] [address] [place] [id number] Mar, [facility] [address] [id number] [place] [address]- 9576 Mar, [facility] [place] [facility] [address] [id number] [place] [address]- 8796 Mar, [facility] [address] [id number] [place] [address] Mar, [facility] [place] [facility] [address] [id number] [place] [address] Mar, [facility] [address] [id number] [place] [address] Mar, [facility] [address] [id number] [place] [address] Mar, [facility] [address] [id number] [place] [address] Mar, [facility] [place] [facility] [address] [id number] [place] [address] Mar, [facility] [address] [id number] [place] [address] Mar, [facility] [place] [facility] [address] [id number] [place] [address] Mar, [facility] [place] [facility] [address] [id number] [place] [address] Mar, [facility] [place] [facility] [address] [id number], [place] [address] Mar, [facility] [place] [facility] [address] [id number] [place] [address] Mar, [facility] [place] [facility] [address] [id number] [place] [address] Mar, [facility] [place] [facility] [address] [id number] [place] [address] Mar, [facility] [place] [facility] [address] [id number] [place] [address] Feb, [facility] [address] [id number] [place] [address] Feb, [facility] [place] [facility] [address] [id number] [place] [address] Feb, [facility] [place] [facility] [address] [id number] [place] [address] Feb, [facility] [place] [facility] [address] [id number] [place] [address] Feb, [facility] [place] [facility] [address] [id number] [place] [address] Feb, [facility] [place] [facility] [address] [id number] [place] [address] Feb, [facility] [address] [id number] [place] [address] Feb, [facility] [address] [id number] [place] [address] Feb, [facility] [place] [facility] [address] [id number] [place] [address] Feb, [facility] [address] [id number] [place] [address] Feb, [facility] [place] [facility] [address] [id number] [place] [address] 25[address] Feb, [facility] [place] [facility] [address] [id number] [place] [address] Feb, [facility] [place] [facility] [address] [id number] [place] [address] Feb, [facility] [place] [facility] [address] [id number] [place] [address] Feb, [facility] [place] [facility] [address] [id number] [place] [address] Feb, [facility] [place] [facility] [address] [id number] [place] [address] Jan, [facility] [place] [facility] [address] [id number] [place] [address] Jan, [facility] [place] [facility] [address] [id number] [place] [address] Jan, [facility] [place] [facility] [address] [id number] [place] [address]673 Jan, [facility] [place] [facility] [address] [id number] [place] [address] Jan, [facility] [place] [facility] [address] [id number] [place] [address] Jan, [facility] [place] [facility] [address] [id number] [place] [address] Jan, [facility] [place] [facility] [address] [id number], [place] [address] Jan, [facility] [place] [facility] [address] [id number] [place] [address] Jan, [facility] [place] [facility] [address] [id number], [place] [address] Jan, [facility] [place] [facility] [address] [facility] [id number], [place] [address] Jan, [facility] [place] [facility] [address] [id number], [place] [address] Jan, [facility] [place] [facility] [address] [id number], [place] [address] Jan, [facility] [place] [facility] [address] [id number], [place] [address] Jan, [facility] [place] [facility] [address] [id number] [address] Jan, [facility] [place] [facility] [address] [id number], [place] [address] 05 Jan, 2012 [facility] [place] [facility] [address] [id number] [place] [address] 04 Jan, 2012 [facility] [place] [facility] [address] [id number] [place] [address]46 21 Dec, 2011 [facility] [place] [facility] [address] [id number] [place] [address]16 20 Dec, 2011 [facility] [place] [facility] [address] [id number] [place] [address] 2546 18 Dec, 2011 [facility] [place] [facility] [address] [id number] [place] [address] 18 Dec, 2011 [facility] [place] [facility] [address] [id number] [place] [address]- 4216 10 Dec, 2011 [facility] [place] [facility] [address] [id number] [place] [address]26 10 Dec, 2011 [facility] [place] [facility] [address] [id number] [place] [address]60 10 Dec, 2011 [facility] [place] [facility] [address] [id number] [place] [address] 07 Dec, 2011 [facility] [place] [facility] [address] [id number] [place] [address]- 3760 30 Nov, 2011 [facility] [place] [facility] [address] [id number] [place] [address]40 25 Nov, 2011 [facility] [place] [facility] [address] [id number] [place] [address]- 2544 24 Nov, 2011 [facility] [place] [facility] [address] [id number] [place] [address] 79[address] Nov, [facility] [place] [facility] [address] [id number] [place] [address] Nov, [facility] [place] [facility] [address] [id number] [place] [address]130 16 Nov, 2011 [facility] [place] [facility] [address] [id number] [place] [address] 30 Oct, 2011 [facility] [place] [facility] [address] [id number] [place] [address] 30 Oct, 2011 [facility] [place] [facility] [address] [id number] [place] [address]46 Oct, [facility] [place] [facility] [address] [id number] [place] [address]136 Oct, [facility] [place] [facility] [address] [id number] [place] [address] Oct, [facility] [place] [facility] [address] [id number] [place] [address] Oct, [facility] [place] [facility] [address] [id number] [place] [address]- [address] Oct, [facility] [place] [facility] [address] [id number] [place] [address] Sep, [facility] [place] [facility] [address] [id number] [place] [address] Sep, [facility] [place] [facility] [address] [id number] [place] [address] Sep, [facility] [place] [facility] [address] [id number] [place] [address] Sep, [facility] [place] [facility] [address] [id number] [place] [address] 19 Sep, 2011 [facility] [place] [facility] [address] [id number] [place] [address]43 15 Sep, 2011 [facility] [place] [facility] [address] [id number] [place] [address]239 14 Sep, 2011 [facility] [place] [facility] [address] [id number] [place] [address]46 11 Sep, 2011 [facility] [place] [facility] [address] [id number] [place] [address] Sep, [facility] [address] [id number] [place] [address] Sep, [facility] [place] [facility] [address] [id number] [place] [address] August, [facility] [place] [facility] [address] [id number] [place] [address]207 August, [facility] [place] [facility] [address] [id number] [place] [address] August, [facility] [address] [id number] [place] [address] August, [facility] [place] [facility] [address] [id number] [place] [address] August, [facility] [place] [facility] [address] [id number] [place] [address] Jul, [facility] [place] [facility] [address] [id number] [place] [address]84 Jul, [facility] [place] [facility] [address] [id number] [place] [address]177 Jul, [facility] [place] [facility] [address] [id number] [place] [address] Jul, [facility] [place] [facility] [address] [id number] [place] [address] Jul, [facility] [place] [facility] [address] [id number] [place] [address]304 Jul, [facility] [place] [facility] [address] [id number] [place] [address] Jul, [facility] [place] [facility] [address] [id number] [place] [address]33 Jun, [facility] [place] [facility] [address] [id number] [place] [address]- 1542 Jun, [facility] [place] [facility] [address] [id number] [place] [address] 7385 Jun, [facility] [place] [facility] [address] [id number] [place] [address] 5292 Jun, [facility] [place] [facility] [address] [id number] [place] [address] Jun, [facility] [place] [facility] [address] [id number] [place] [address]326 May, [facility] [place] [facility] [address] [id number] [place] [address] 3318 May, [facility] [place] [facility] [address] [id number] [place] [address], [place] [address]653 May, [facility] [place] [facility] [address] [id number] [place] [address] 7253 May, [facility] [place] [facility] [id number] [place] [address], [place] [address]88 May, [facility] [place] [facility] [address] [id number] [place] [address] 4427 May, [facility] [place] [facility] [id number] [place] [address] Apr, [facility] [place] [facility] [address] [id number] [place] [address] Mar, [facility] [place] [facility] [address] [id number] [place] [address] 2549 Feb, [facility] [place] [facility] [address] [id number] [place] [address] 2542 Feb, [facility] [place] [facility] [address] [facility] [id number] [place] [address] 3339 Feb, [facility] [place] [facility] [address] [facility] [id number] [place] [address] 9350 Feb, [facility] [place] [facility] [address] [facility] [id number] [place] [address] Jan, [facility] [place] [facility] [address] [id number] [place] [address] 8613 27 Jan, 2011 [facility] [place] [facility] [address] [id number] [place] [address] 8957 26 Jan, 2011 [facility] [place] [facility] [address] [id number] [place] [address]- 7159 24 Jan, 2011 [facility] [place] [facility] [address] [id number] [place] [address] 0347 14 Jan, 2011 [facility] [place] [facility] [address] [id number] [place] [address]161 Dec, [facility] [place] [facility] [address] [id number] [place] [address] 6418 Oct, [facility] [place] [facility] [address] [id number] [place] [address] 1134 August, [facility] [place] [facility] [address] [id number] [place] [address]- 2695 29 Mar, 2010 [facility] [place] [facility] [address] [id number] [place] [address]- 4551 27 Mar, 2010 [facility] [place] [facility] [address] [id number], [place] [address] 16 Mar, 2010 [facility] [place] [facility] [address] [id number], [place] [address]90 15 Mar, 2010 [facility] [place] [facility] [address] [id number], [place] [address] 5969 15 Mar, 2010 [facility] [place] [facility] [address] [id number] [place] [address]- 9682 08 Mar, 2010 [facility] [place] [facility] [address] [id number], [place] [address]659 03 Mar, 2010 [facility] [place] [facility] [address] [id number], [place] [address] 24 Feb, 2010 [facility] [place] [facility] [address] [id number], [place] [address] 3013 24 Feb, 2010 [facility] [place] [facility] [address] [id number] [place] [address]- 3070 15 Feb, 2010 [facility] [place] [facility] [address] [facility] [address] [id number], [place] [address] Jan, [facility] [place] [facility] [address] [facility] [address] [id number] [place] [address]- 6842 18 Jan, 2010 [facility] [place] [facility] [address] [facility] [address] [id number], [place] [address]180 18 Jan, 2010 [facility] [place] [facility] [address] [facility] [id number] [place] [address], [place] [address]709 Nov, [facility] [place] [facility] [address] [facility] [address] [id number], [place] [address]279 Sep, [facility] [place] [facility] [id number] [place] [address] August, [facility] [place] [facility] [address] [facility] [address] [id number], [place] [address] 1065 30 Mar, 2009 [facility] [place] [facility] [address] [id number], [place] [address] 07 Mar, 2009 [facility] [place] [facility] [address] [id number], [place] [address] 17 Feb, 2009 [facility] [place] [facility] [address] [facility] [address] [id number], [place] [address] 0177 10 Feb, 2009 [facility] [place] [facility] [address] [facility] [address] [id number], [place] [address] 8093 10 Feb, 2009 [facility] [place] [facility] [address] [facility] [address] [id number], [place] [address] 8327 10 Feb, 2009 [facility] [place] [facility] [address] [facility] [address] [id number], [place] [address]- [address]371 06 Feb, 2009 [facility] [place] [facility] [address] [id number], [place] [address]75 27 Jan, 2009 [facility] [place] [facility] [address] [id number], [place] [address] Jan, [facility] [id number], [place] [address] Jan, [facility] [id number], [place] [address] Jan, [facility] [id number], [place] [address] Nov, [facility] [id number], [place] [address] Sep, [place] [id number], [place] [address] August, [facility] [id number], [place] [address] Jul, [facility] [id number], [place] [address] May, IMMUNIZATIONS No Known Immunizations SOCIAL HISTORY Never Assessed REASON FOR VISIT Med reconciliation (cont) PLAN OF CARE VITAL SIGNS MEDICATIONS Medication Instructions Dosage Frequency Start Date End Date Duration Status Ropinirole HCl 2 MG TAKE 1 TABLET ONE TIME DAILY AT BEDTIME 90 Active Omeprazole 40 mg Orally 2 times a day 1 capsule 12h Active Naproxen 250 MG Orally Twice a day PRN migraines 1 tablet with food or milk Active Carafate 1 GM Orally 4 times a day PRN 1 tablet Active Vitamin D 50,000 Orally once a week 1 tablet Active Welchol 625 MG Orally twice a day 2 tablets 12h Active Ranitidine HCl 150 MG Orally 2 times a day 1 tablet at bedtime 12h Active Calcium Orally Once a day 1 tablet with D3 800 24h Active Glucometer 1 test blood sugar Jul, Active Trazodone HCl 150 MG Orally Once a day 1 tablet at bedtime 24h Active Zofran ODT 4 mg Orally every 4 hrs PRN 1 tablet on the tongue and allow to dissolve Jul, Active Magnesium 400 MG Orally Once a day 1 tablet 24h Active Toprol XL 25 MG Orally Once a day 1 tablet 24h Active Lomotil 2.5-0.025 mg Orally Four times a day PRN loose stools TWO TABLETS Active Eliquis 5 MG Orally 2 times a day 12h Active Sertraline HCl 100 MG Orally Once a day 1 tablet 24h Active Symbicort 160-4.5 MCG/ACT INHALE 2 PUFFS TWICE DAILY, IN THE MORNING AND IN THE EVENING 90 Active Ventolin HFA 108 (90 Base) MCG/ACT INHALE 2 PUFFS EVERY 4 HOURS NEEDED 16 Active Namenda 10 MG TAKE 1 TABLET EVERY DAY Active Abilify 10 MG Orally Once a day 1 tablet 24h Active Singulair 10 MG TAKE 1 TABLET ONE TIME DAILY 90 Active Albuterol Sulfate 2.5 mg /3 mL (0.083 %) 1 Each by Inhalation route every 4 hours for cough and wheeze PRN for wheezing or cough Jun, Active Baclofen 20 MG TAKE ONE TABLET BY MOUTH THREE TIMES DAILY WITH FOOD OR MILK 30 Active Pantoprazole Sodium 40 MG Orally 2 times a day 1 tablet 12h Active Polyethylene Glycol 3350 - Orally in water or juice Once a day in the pm 17 grams Jul, 30 days Active Farxiga 5 mg Orally Once a day 1 tablet 24h Jul, Oct, 30 day(s) Active Spiriva HandiHaler 18 MCG Inhalation Once a day 1 capsule 24h Active Remeron 45 MG Orally Once a day at bedtime 1 tablet Feb, Active Oxybutynin Chloride ER 10 MG Orally Once a day 1 tablet 24h Active Sumatriptan Succinate 100 MG Orally Twice a day 1 tablet as needed 12h Active Clonazepam 1 MG Orally Once a day 1 tablet 24h Active Lamictal 25 MG Orally every night 3 tablets Apr, Active Diltiazem HCl ER 240 MG Orally Once a day 1 capsule 24h Active Melatonin 5 MG Orally Once a day 1 tablet at bedtime as needed with food 24h Jun, 30 day(s) Not-Taking Xifaxan 550 MG Orally Three times a day 1 tablet 8h Active Neurontin 400 mg Orally Three times a day 1 capsule 8h August, 30 day(s) Active Benefiber - Active BusPIRone HCl 5 MG Orally Three times a day 1 tablet 8h Active Oxygen 5 inhalation all the time Active Nitroglycerin 0.4 MG Active Alendronate Sodium 70 MG TAKE 1 TABLET EVERY WEEK Active RESULTS No Results PROCEDURES No Known [...] Knee Surgery 07/16/17 Hospitalization History [facility]- left hand/wrist swelling 10/09/2017
--- OUTSIDE RECORDS SUMMARY | 2018-01-01 11:41 | XMS REPORT ---
Author Author SENAIT DUNLAP [facility] Address [address] [place] [address] Care Team Providers Care Loop Tacker Name Role Phone SENAIT DUNLAP Unavailable PROBLEMS Type Condition ICD9-CM Code MDN43-NW Code Onset Dates Condition Status SNOMED Code Problem History of common bile duct surgery Z98.89 Active 732950552 Problem Barretts esophagus K22.70 Active 396070024 Problem 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 Active 07925402 Problem Colon polyp K63.5 Active 93299916 Problem Bilateral low back pain without sciatica M54.5 Active 003654312 Problem Screening breast examination Z12.39 Active 130801202 Problem Postmenopausal Z78.0 Active 28852936 Problem Osteopenia M85.80 Active 539305169 Problem Cigarette nicotine dependence without complication F17.210 Active 22350128 Problem Type 2 diabetes mellitus with diabetic peripheral angiopathy without gangrene E11.51 Active 911706937 Problem Vascular dementia without behavioral disturbance F01.50 Active [id number] Problem Unspecified atherosclerosis of [place] arteries of extremities, unspecified extremity I70.209 Active 321880236010474 Problem Arthritis M19.90 Active 5267076 Problem Chronic atrial fibrillation I48.2 Active 847168299 Problem Chronic obstructive pulmonary disease with acute lower respiratory infection J44.0 Active 677735912 Problem Other chronic pancreatitis K86.1 Active 093335387 Problem Stress incontinence of urine N39.3 Active 57659825 Problem Controlled type 2 diabetes mellitus without complication, without long -term current use of insulin E11.9 Active 296257427 Problem Unspecified psychosis F29 Active 22645418 Problem Xeroderma Q80.9 Active 38469699 Problem COPD (chronic obstructive pulmonary disease) J44.9 Active 79614375 Problem Dementia without behavioral disturbance, unspecified dementia type F03.90 Active 75966473 Problem Gastroparesis K31.84 Active 888066621 Problem Type 2 diabetes mellitus with diabetic neuropathy, without long-term current use of insulin E11.40 Active 37919060 Problem Osteoporosis M81.0 Active 58219495 Problem Atherosclerosis of [place] artery of both lower extremities with intermittent claudication I70.213 Active 019427464092581 Problem Hyperlipidemia E78.5 Active 64454977 Problem Diabetic polyneuropathy associated with type 2 diabetes mellitus E11.42 Active 67568472 Problem Essential tremor G25.0 Active 26165234 Problem Atherosclerotic heart disease of [place]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 I25.118 Active 6399318065549 Problem Generalized anxiety disorder F41.1 Active 636351782 Problem Gastroesophageal reflux disease, esophagitis presence not specified K21.9 Active 824338168 Problem Coronary artery disease involving [place] coronary artery of [place] 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 I25.118 Active 6160697170393 Problem Postconcussion syndrome F07.81 Active 33878804 Problem Chronic pain syndrome G89.4 Active 935304956 Problem Migraine without aura and without status migrainosus, not intractable G43.009 Active 584284338 Problem Paroxysmal atrial fibrillation I48.0 Active 891315723 Problem Migraine without aura and with status migrainosus, not intractable G43.001 Active 936338362 Problem Cervicalgia M54.2 Active 2633744945104 Problem Acute exacerbation of chronic obstructive pulmonary disease (COPD) J44.1 Active 073290405 Problem Major depressive disorder, recurrent episode, moderate F33.1 Active 707860104 Problem Crohn''s disease without complication, unspecified gastrointestinal tract location K50.90 Active 73985050 Problem Chronic fatigue R53.82 Active 46140646 Problem Bipolar affective disorder, currently depressed, moderate F31.32 Active 051893730 ALLERGIES No Information ENCOUNTERS Encounter Location Date Diagnosis [place] [address] [address] Nov, [place] [id number] [address] Nov, [place] [address] [address] Nov, Bronchitis J40 [place] [address] [address] Oct, [place] [address] [address] Oct, Bipolar affective disorder, currently depressed, moderate F31.32 ; Vascular dementia without behavioral disturbance F01.50 and Generalized anxiety disorder F41.1 [facility] [address] [address] Oct, [facility] [address] [place] [id number] [place] [address] 35811- 5038 Oct, [facility] [address] [place] [address] [id number] [place] [address] 87524- 9408 Oct, Edema of both legs R60.0 [facility] [address] [place] [address] [id number] [place] [address] 99210- 6863 Oct, [facility] [address] [place] [id number] [place] [address] 37157- 0561 Sep, [facility] [address] [place] [id number] [place] [address] 74545- 4235 Sep, [facility] [address] [id number] [place] [address] 07473- 2959 Sep, [facility] [address] [id number] [place] [address] 13413- 4291 Sep, Encounter for well woman exam with routine gynecological exam Z01.419 ; Screening for STDs (sexually transmitted diseases) Z11.3 ; Screening breast examination Z12.31 and Overweight (BMI 25.0-29.9) E66.3 [facility] [address] [address] 55[address] Sep, [facility] [address] [place] [address] [id number] [place] [address] 05081- 8827 Sep, [facility] [address] [address] 1448 Sep, [facility] [id number] [place] [address] 01233- 4656 August, [facility] [address] [address] 4543 August, [facility] [address] [place] [id number] [place] [address] 40469- 9883 August, Type 2 diabetes mellitus with diabetic neuropathy, without long-term current use of insulin E11.40 and Sprain of right ankle, unspecified ligament, initial encounter S93.401A [facility] [address] [place] [id number] [place] [address] 06318- 9591 August, [facility] [id number] [place] [address] 19416- 5768 August, [facility] [address] [place] [id number] [place] [address] 86743- 0691 August, [facility] [id number] [place] [address] 44442- 2627 August, Gastroesophageal reflux disease, esophagitis presence not specified K21.9 [facility] [id number] [place] [address] 00873- 7508 August, [facility] [address] [id number] [place] [address] 14312- 6072 August, [facility] [address] [address]- 9962 August, [facility] [id number] [place] [address] 10791- 9648 August, Type 2 diabetes mellitus with diabetic neuropathy, without long-term current use of insulin E11.40 and Elevated liver enzymes R74.8 [facility] [address] [address] 1346 Jul, [facility] [address] [id number] [place] [address] 04728- 1474 Jul, Cough R05 [facility] [id number] [place] [address] 70377- 4867 Jul, [facility] [address] [id number] [place] [address] 10091- 4222 Jul, [facility] [address] 27966- 7992 Jul, Bipolar affective disorder, currently depressed, moderate F31.32 ; Vascular dementia without behavioral disturbance F01.50 and Generalized anxiety disorder F41.1 [facility] [address] 74976- 4430 Jul, [facility] [address] 01767- 3163 Jul, Type 2 diabetes mellitus with diabetic neuropathy, without long-term current use of insulin E11.40 and Elevated liver enzymes R74.8 [facility] [address] [place] [id number] [place] [address] 37954- 3315 Jul, [facility] [address] 56688- 1957 Jul, [facility] [address] [place] [id number] [place] [address] 26966- 1519 Jul, [facility] [address] 70585- 2025 Jul, Post-menopausal Z78.0 [facility] [address] [place] [id number] [place] [address] 77296- 3581 Jul, Stress incontinence of urine N39.3 [facility] [address] [id number] [place] [address] 62134- 6988 Jul, [facility] [address] [id number] [place] [address] 11891- 9462 Jul, [facility] [address] [place] [id number] [place] [address] 35850- 6085 Jul, Stress incontinence of urine N39.3 and Cough R05 [facility] [address] [place] [id number] [place] [address] 50292- 4208 Jul, [facility] [address] [address]- 4843 Jul, [facility] [address] [place] [address] [id number] [place] [address] 59845- 1566 Jul, [facility] [address] [place] [id number] [place] [address] 59643- 5963 Jul, Gastroesophageal reflux disease, esophagitis presence not specified K21.9 [facility] [address] [place] [id number] [place] [address] 21388- 6127 Jun, Diabetic polyneuropathy associated with type 2 diabetes mellitus E11.42 [place] [address] [place] [id number] [place] [address] Jun, Diabetic polyneuropathy associated with type 2 diabetes mellitus E11.42 ; Coronary artery disease involving [facility] coronary artery of [place] 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 I25.118 and Paroxysmal atrial fibrillation I48.0 [facility] [address] [place] [id number] [place] [address] 49425- 5171 Jun, [facility] [address] [address] [id number] [place] [address] 83754- 4537 Jun, [facility] [address] [address] [id number] [place] [address] 87351 2541 Jun, Gastroenteritis K52.9 [facility] [address] [place] [id number] [place] [address] 02020 2541 Jun, Gastroenteritis K52.9 [facility] [address] [place] [id number] [place] [address] 86896 2548 Jun, [facility] [address] [place] [address] 78568- 3859 Jun, [facility] [address] [place] [id number] [place] [address] 25271- 3093 Jun, Sprain of right ankle, unspecified ligament, initial encounter S93.401A ; Type 2 diabetes mellitus with diabetic neuropathy, without long-term current use of insulin E11.40 ; Atherosclerosis of [place] artery of both lower extremities with intermittent claudication I70.213 ; Atherosclerotic heart disease of [place]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 I25.118 ; Chronic atrial fibrillation I48.2 and Crohn''s disease without complication, unspecified gastrointestinal tract location K50.90 [facility] [id number] [place] [address] 78001 -8074 17 Jun, 2017 Chronic obstructive pulmonary disease with acute lower respiratory infection J44.0 and Cough R05 [facility] [address] [place] [id number] [place] [address] 11827- 6291 Jun, [place] [address] [place] [id number] [place] [address] 68382- 7927 Jun, Coughing R05 ; Unspecified atherosclerosis of [place] arteries of extremities, unspecified extremity I70.209 ; Type 2 diabetes mellitus with diabetic peripheral angiopathy without gangrene E11.51 ; Crohn''s disease without complication, unspecified gastrointestinal tract location K50.90 ; Other chronic pancreatitis K86.1 and Chronic atrial fibrillation I48.2 [facility] [id number] [place] [address] 88626 -8491 Jun, [place] [address] [place] [id number] [place] [address] 82953- 2438 Jun, Bipolar affective disorder, currently depressed, moderate F31.32 ; Vascular dementia without behavioral disturbance F01.50 and Generalized anxiety disorder F41.1 [place] [address] [place] [id number] [place] [address] 67061- 9700 May, Generalized anxiety disorder F41.1 [place] [id number] [place] [address] 23130- 6133 May, [place] [address] [place] [id number] [place] [address] 29636- 2711 May, [place] [address] [place] [id number] [place] [address] 81773- 0913 15 May, 2017 Coughing R05 [place] [address] [place] [id number] [place] [address] 62106- 5259 May, [place] [id number] [place] [address] 74917- 5374 May, Bipolar affective disorder, currently depressed, moderate F31.32 ; Vascular dementia without behavioral disturbance F01.50 and Generalized anxiety disorder F41.1 [place] [address] [place] [id number] [place] [address] 98080- 8198 Apr, Generalized anxiety disorder F41.1 [place] [address] [place] [id number] [place] [address] 35920- 0460 Apr, [place] [address] [place] [id number] [place] [address] 21261- 0515 Apr, Vascular dementia without behavioral disturbance F01.50 ; Generalized anxiety disorder F41.1 and Bipolar affective disorder, currently depressed, moderate F31.32 [place] [address] [place] [id number] [place] [address] 51113- 1452 Apr, Generalized anxiety disorder F41.1 [facility] [address] [place] [id number] [place] [address] 60944 -1984 Apr, Cough R05 and Acute exacerbation of chronic obstructive pulmonary disease (COPD) J44.1 [place] [address] [place] [id number] [place] [address] 51865- 7834 Apr, [facility] [id number] [place] [address] 84026 -9799 Mar, Cough R05 and Cigarette nicotine dependence without complication F17.210 [place] [address] [place] [id number] [place] [address] 27961- 5109 Mar, [place] [address] [place] [id number] [place] [address] 54790- 0251 Feb, Generalized anxiety disorder F41.1 ; Major depressive disorder, recurrent episode, moderate F33.1 ; Vascular dementia without behavioral disturbance F01.50 and Unspecified psychosis F29 [place] [address] [place] [id number] [place] [address] 39582- 9578 Feb, [place] [id number] [place] [address] 74074- 3119 Feb, [place] [address] [place] [id number] [place] [address] 93702- 2020 Feb, Generalized anxiety disorder F41.1 [place] [address] [place] [id number] [place] [address] 41427- 2621 Feb, Generalized anxiety disorder F41.1 [place] [address] [place] [id number] [place] [address] 65255- 8295 Feb, Dizziness R42 ; Chronic fatigue R53.82 ; Postconcussion syndrome F07.81 ; Fall, initial encounter W19.XXXA and Disorientation R41.0 [place] [address] [place] [id number] [place] [address] 13584- 4930 Feb, Postconcussion syndrome F07.81 ; Injury of head, initial encounter S09.90XA ; Fall, initial encounter W19.XXXA ; Disorientation R41.0 and Acute cystitis with hematuria N30.01 [place] [address] [place] [id number] [place] [address] 25500- 5059 Jan, Gastroesophageal reflux disease, esophagitis presence not specified K21.9 ; Post-menopausal Z78.0 and Migraine without aura and without status migrainosus, not intractable G43.009 [place] [address] [place] [id number] [place] [address] 50457- 7219 Jan, [place] [address] [place] [id number] [place] [address] 01070- 2192 Jan, Generalized anxiety disorder F41.1 ; Major depressive disorder, recurrent episode, moderate F33.1 ; Vascular dementia without behavioral disturbance F01.50 and Unspecified psychosis F29 [place] [address] [place] [address] 02243- 2794 Jan, Pneumonia of left lower lobe due to infectious organism J18.1 [place] [address] [place] [address]- 8050 05 Jan, 2017 Migraine without aura and with status migrainosus, not intractable G43.001 [facility] [address] [place] [id number] [place] [address] 21899 -4301 Jan, Migraine without aura and without status migrainosus, not intractable G43.009 [facility] [address] [id number] [place] [address] 61500- 4625 Dec, Hematoma T14.8 [facility] [address] [id number] [place] [address] 26666- 0298 Dec, [facility] [address] [place] [id number] [place] [address] 28649 -5139 Nov, Fatigue, unspecified type R53.83 [place] [address] [place] [id number] [place] [address] 17020- 7204 Nov, Scabies B86 and Coronary artery disease involving [facility] coronary artery of [place] 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 I25.118 [place] [address] [place] [id number] [place] [address] 42355- 4421 Nov, [place] [address] [place] [id number] [place] [address] 52029- 2887 Nov, [place] [address] [place] [id number] [place] [address] 99895- 6103 Oct, [facility] [address] [place] [id number] [place] [address] 71244- 1638 Oct, Generalized anxiety disorder F41.1 and Major depressive disorder, recurrent episode, moderate F33.1 [facility] [address] 64385- 3449 Oct, Cramp of both lower extremities R25.2 [facility] [address] [place] [id number] [place] [address] 98762- 3953 Oct, Leg cramps R25.2 [place] [address] [place] [address]- 6220 Oct, Chronic pain syndrome G89.4 [facility] [address] [id number] [place] [address] 27960- 8671 17 Oct, 2016 [facility] [address] [id number] [place] [address] 68299- 5252 Oct, [facility] [address] [place] [id number] [place] [address] 03052- 8286 Oct, Routine gynecological examination Z01.419 and Screening for breast cancer Z12.31 [facility] [address] [place] [id number] [place] [address] 25582- 0957 28 Sep, 2016 Diarrhea R19.7 [facility] [address] [place] [id number] [place] [address] 34340- 1116 Sep, Back pain M54.9 [place] [address] [place] [id number] [place] [address] 44514- 3805 Sep, [facility] [address] [place] [id number] [place] [address] 20149- 6451 Sep, [facility] [address] [place] [id number] [place] [address] 74525 -0510 August, Xeroderma Q80.9 [facility] [address] [place] [id number] [place] [address] 51380- 8614 August, Dementia without behavioral disturbance, unspecified dementia type F03.90 [facility] [address] [id number] [place] [address] 56798- 4064 August, Chronic pain syndrome G89.4 [facility] [address] [id number] [place] [address] 80218- 4803 August, [facility] [address] [id number] [place] [address] 01632- 9149 August, Hyperlipidemia E78.5 ; Other fatigue R53.83 and Other specified hypotension I95.89 [facility] [address] [place] [address] 85804 -2345 August, Dysuria R30.0 ; Other fatigue R53.83 and Other specified hypotension I95.89 [place] [address] 77057- 2104 August, [place] [address] 22909- 2915 Jul, Pain in left knee M25.562 and Gastroenteritis K52.9 [place] [address] 21985- 7518 Jul, [place] [address] 35704- 7730 Jul, Diarrhea R19.7 [facility] [address] 78396 -3547 Jul, Spider bite, accidental or unintentional, initial encounter T63.301A [place] [address] 89158- 9305 Jul, Primary osteoarthritis of right knee M17.11 and Arthritis M19.90 [place] [address] 30119- 9682 Jul, Generalized anxiety disorder F41.1 and Major depressive disorder, recurrent episode, moderate F33.1 [place] [address] 79869- 8349 Jul, Type 2 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 and Temporal headache R51 [place] [address] 89438- 7906 Jul, Back pain M54.9 [place] [address] 17501- 7541 Jul, [place] [address] 09284- 9546 Jul, [place] [address] 99005- 9255 Jun, Nausea R11.0 [facility] [id number] [place] [address] 60239 -9447 Jun, Acute suppurative otitis media of both ears without spontaneous rupture of tympanic membranes, recurrence not specified H66.003 and COPD exacerbation J44.1 [place] [address] 18100- 3980 Jun, Generalized anxiety disorder F41.1 [facility] [address] 64769- 2420 16 Jun, 2016 [facility] [address] 24248 -4285 Jun, [facility] [address] 07462 -0931 Jun, Shortness of breath R06.02 and COPD exacerbation J44.1 [place] [address] 84545- 2726 10 Jun, 2016 Eczema, unspecified type L30.9 [place] [address] 77026- 9184 Jun, [place] [address] 10145- 8562 May, [place] [address] 91216- 6480 May, Muscle cramping R25.2 [place] [address] 29922- 2666 May, [facility] [address] 58784- 5924 Apr, Diarrhea R19.7 [facility] [address] 05879- 7257 Apr, [place] [address] 29317- 5535 Apr, Chronic pain syndrome G89.4 [place] [address] 88687- 4392 16 Apr, 2016 Cramp of both lower extremities R25.2 and Vascular dementia without behavioral disturbance F01.50 [place] [address] 89406- 8673 Apr, Type 2 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 and Cigarette nicotine dependence without complication F17.210 [place] [address] 11683- 7573 Mar, Generalized anxiety disorder F41.1 [place] [address] 13106- 2098 Feb, Generalized anxiety disorder F41.1 and Major depressive disorder, recurrent episode, moderate F33.1 [place] [address] 25646- 1530 Feb, [facility] [address] 79442 -5595 05 Feb, 2016 Dysuria R30.0 and Acute cystitis with hematuria N30.01 [place] [address] 99375- 4535 31 Jan, 2016 [place] [address] 83529- 1931 Jan, [place] [address] 60316- 9659 Jan, [place] [address] 50605- 8766 11 Jan, 2016 [facility] [address] 56465 -0515 10 Jan, 2016 Wasp sting, accidental or unintentional, initial encounter T63.461A [place] [address] 43252- 9838 Jan, Encounter for immunization Z23 [facility] [id number] [place] [address] 00642- 4677 Jan, [facility] [id number] [place] [address] 96899- 0191 Jan, [facility] [id number] [place] [id number] 28 Dec, 2015 Generalized anxiety disorder F41.1 and Major depressive disorder, recurrent episode, moderate F33.1 [place] [id number] [place] [phone] Dec, 2015 Routine gynecological examination Z01.419 ; Postmenopausal Z78.0 ; Screening breast examination Z12.39 ; Osteopenia M85.80 and Breast cancer screening Z12.39 [place] [id number] [place] [phone] 20 Dec, 2015 [facility] [place] [id number] [place] [address] 74191- 1784 19 Dec, 2015 [facility] [id number] [place] [address] 15564- 1554 16 Dec, 2015 [place] [id number] [place] [address] 29787- 0834 16 Dec, 2015 [facility] [id number] [place] [address] 91292- 3809 14 Dec, 2015 [facility] [id number] [place] [address] 61229- 5553 06 Dec, 2015 [facility] [id number] [place] [address] 78970- 3164 Nov, [facility] [id number] [place] [address] 54491 -6275 Nov, Cough R05 ; Other viral agents as the cause of diseases classified elsewhere B97.89 and Acute upper respiratory infection, unspecified J06.9 [place] [address] [place] [address] 3[address] Nov, [facility] [address] [address] 4820 Nov, [facility] [address] [address]- 1470 Nov, [facility] [address] [address]- 0062 Nov, [facility] [address] [address]- 4733 Nov, [facility] [address] [address]- 5455 Oct, [facility] [address] [address]- 5938 Oct, [facility] [address] [address]- 9203 Oct, [facility] [address] [address]- 3340 Oct, Chronic pain syndrome G89.4 [facility] [address] [address]- 8569 Sep, Generalized anxiety disorder F41.1 and Major depressive disorder, recurrent episode, moderate F33.1 [facility] [address] [address]- 3609 Sep, [facility] [address] [address]- 6249 Sep, [facility] [address] [address]- 5240 14 Sep, 2015 Generalized anxiety disorder F41.1 [facility] [address] [address]- 7094 13 Sep, 2015 Cramp of both lower extremities R25.2 and Cervicalgia M54.2 [facility] [id number] [place] [address] 01495- 8272 Sep, Generalized anxiety disorder F41.1 [facility] [id number] [place] [address] 95167- 6675 Sep, [facility] [id number] [place] [address] 68954 -0699 August, Rash R21 ; Itching L29.9 and Allergic response, subsequent encounter T78.40XD [facility] [address] 85133- 0566 August, Primary insomnia F51.01 [facility] [id number] [place] [address] 95387 -4038 August, Rash R21 ; Itching L29.9 and Allergic response, initial encounter T78.40XA [place] [id number] [place] [address] 80749- 4035 August, [facility] [id number] [place] [address] 30178- 8725 August, Cramp of both lower extremities R25.2 [place] [id number] [place] [address] 53067- 7762 August, Back pain M54.9 [facility] [id number] [place] [address] 83686- 2145 August, [facility] [id number] [place] [address] 06487- 6696 August, [facility] [id number] [place] [address] 52761 -3188 August, Cramp of both lower extremities R25.2 [facility] [id number] [place] [address] 23256- 0324 August, [facility] [id number] [place] [address] 70528- 7494 August, Syncope R55 ; Paroxysmal atrial fibrillation I48.0 ; Dementia without behavioral disturbance, unspecified dementia type F03.90 and Chronic pain syndrome G89.4 [facility] [id number] [place] [address] 22496- 8545 August, Type 2 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 and Syncope R55 [facility] [id number] [place] [address] 61191- 2072 Jul, [facility] [id number] [place] [address] 75104- 6785 Jul, [facility] [id number] [place] [address] 78895- 7094 Jul, [facility] [id number] [place] [address] 43216- 7358 Jul, [facility] [id number] [place] [address] 57530- 3547 Jul, [facility] [id number] [place] [address] 29234- 4075 Jul, UTI (urinary tract infection) N39.0 [facility] [id number] [place] [address] 41459- 5270 Jul, [facility] [id number] [place] [address] 17976- 3315 Jul, Major depressive disorder, recurrent episode, moderate F33.1 and Generalized anxiety disorder F41.1 [facility] [id number] [place] [address] 88817- 8323 Jul, Generalized anxiety disorder F41.1 [facility] [id number] [place] [address] 12354- 0722 Jul, Diarrhea R19.7 [facility] [id number] [place] [address] 86317- 7780 Jul, [facility] [address] [address]- 6106 Jun, [facility] [address] [address]- 8805 Jun, Eczema L30.9 [facility] [address] [address]- 6576 Jun, [facility] [address] [address]- 0468 Jun, COPD (chronic obstructive pulmonary disease) J44.9 [facility] [address] [address]- 9226 Jun, [facility] [address] [address]- 1280 Jun, Major depressive disorder, recurrent episode, moderate F33.1 and Generalized anxiety disorder F41.1 [facility] [address] [address]- 0185 May, [facility] [address] [address]- 1784 May, UTI (urinary tract infection) N39.0 [facility] [address] [address]- 6776 May, [facility] [address] [address]- 9706 May, [facility] [address] [address]- 5133 May, [facility] [address] [address]- 4764 May, [facility] [address] [address]- 9902 Apr, Major depressive disorder, recurrent episode, moderate F33.1 and Generalized anxiety disorder F41.1 [facility] [address] [address]- 3280 Apr, COPD (chronic obstructive pulmonary disease) J44.9 [facility] [id number] [place] [address] 45105- 0296 Apr, [facility] [id number] [place] [address] 11848- 7120 Apr, Atrial flutter I48.92 [facility] [id number] [place] [address] 07167- 3722 Apr, [facility] [id number] [place] [address] 74955- 5954 Apr, [facility] [id number] [place] [address] 65319- 8988 Mar, [facility] [id number] [place] [address] 94642- 2799 Mar, [facility] [id number] [place] [address] 25175- 4776 Mar, [facility] [id number] [place] [address] 98429- 1290 Mar, Hyperlipidemia E78.5 ; Type 2 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 ; Major depressive disorder, recurrent episode, moderate F33.1 and Chronic pain syndrome G89.4 [facility] [id number] [place] [address] 15263- 9115 16 Mar, 2015 [facility] [id number] [place] [address] 40141- 3069 Mar, [facility] [id number] [place] [address] 69317- 5067 Mar, [facility] [id number] [place] [address] 44095- 5849 Mar, [facility] [id number] [place] [address] 05865- 4910 30 Feb, 2015 COPD (chronic obstructive pulmonary disease) J44.9 and Back pain M54.9 [facility] [id number] [place] [address] 35309- 2798 Feb, [facility] [address] [address]- 7292 Feb, [facility] [id number] [place] [address] 38221- 5997 Feb, [facility] [id number] [place] [address] 24449- 5887 Feb, [facility] [id number] [place] [address] 46818- 8598 Feb, [facility] [id number] [place] [address] 37695- 2717 Feb, [facility] [id number] [place] [address] 46254- 1868 Feb, [facility] [id number] [place] [address] 79656- 0383 Feb, [facility] [id number] [place] [address] 27390- 8839 Feb, Diabetes E11.9 ; Back pain M54.9 and COPD (chronic obstructive pulmonary disease) J44.9 [facility] [id number] [place] [address] 95658- 1410 Jan, [facility] [id number] [place] [address] 27906- 6722 Jan, Major depression, recurrent F33.9 and Generalized anxiety disorder F41.1 [facility] [address] [address]- 8854 Jan, Chronic pain G89.29 [facility] [id number] [place] [address] 79672- 6027 Jan, [facility] [address] [address]- 0400 Jan, [facility] [id number] [place] [address] 02267- 5424 Jan, [facility] [id number] [place] [address] 14551- 8263 Jan, [facility] [id number] [place] [address] 14765- 8514 Jan, Nicotine dependence F17.200 [facility] [id number] [place] [address] 44098- 7929 Jan, Nicotine dependence F17.200 and Back pain M54.9 [facility] [id number] [place] [address] 07468- 2308 Jan, [facility] [id number] [place] [address] 25445- 4617 28 Dec, 2014 [facility] [id number] [place] [address] 50403- 3677 25 Dec, 2014 Anxiety, generalized 300.02 and Major depression, recurrent 296.30 [facility] [id number] [place] [address] 09250- 4706 24 Dec, 2014 [facility] [id number] [place] [address] 90243- 6810 21 Dec, 2014 [facility] [id number] [place] [address] 79666- 9904 17 Dec, 2014 [facility] [id number] [place] [address] 67360- 7592 15 Dec, 2014 [facility] [id number] [place] [address] 82325- 3986 14 Dec, 2014 [facility] [id number] [place] [address] 73945- 2127 11 Dec, 2014 [facility] [id number] [place] [address] 04584- 3188 10 Dec, 2014 [facility] [id number] [place] [address] 26428- 8643 08 Dec, 2014 Skin tear 879.8 [facility] [address] [place] [address]- 7333 08 Dec, 2014 Routine gynecological examination V72.31 ; Breast cancer screening V76.10 and Family history of breast cancer in first degree relative V16.3 [facility] [id number] [place] [address] 71316- 9621 Dec, [facility] [id number] [place] [address] 67299- 4691 Dec, [facility] [id number] [place] [address] 11975- 3119 Nov, [facility] [id number] [place] [address] 17006- 2983 Nov, [place] [id number] [place] [address] 47895- 6879 Nov, Poor balance 781.99 and Vascular dementia, uncomplicated 290.40 [place] [id number] [place] [address] 55524- 5745 Nov, [facility] [id number] [place] [address] 93294- 3870 Nov, Major depression, recurrent 296.30 and Anxiety, generalized 300.02 [facility] [id number] [place] [address] 61133- 1508 Nov, [facility] [id number] [place] [address] 47859- 3055 Nov, [facility] [id number] [place] [address] 48065- 1430 Nov, [facility] [id number] [place] [address] 54952- 1664 Nov, [facility] [id number] [place] [address] 65682- 4591 Nov, Vascular dementia, uncomplicated 290.40 and Lumbago 724.2 [facility] [id number] [place] [address] 66233- 5392 Nov, [facility] [address] [address]- 0590 Nov, [facility] [id number] [address]- 9452 Nov, [facility] [address] [address]- 2772 Oct, [facility] [id number] [place] [address] 84119- 1980 Oct, [facility] [id number] [place] [address] 83831- 0485 Oct, [facility] [id number] [place] [address] 02124- 7534 Oct, COPD (chronic obstructive pulmonary disease) 496 and Hyperlipidemia 272.4 [facility] [id number] [place] [address] 40874- 1643 Oct, Major depression, recurrent 296.30 and Anxiety, generalized 300.02 [facility] [address] [address]- 7900 Oct, [facility] [address] [address]- 8041 Oct, [facility] [address] [address]- 2918 Oct, [facility] [address] [address]- 6674 Sep, Lumbago 724.2 and Anxiety state, unspecified 300.00 [facility] [address] [address]- 2939 Sep, [facility] [address] [address]- 9106 Sep, [facility] [address] [address]- 0924 August, [facility] [address] [address]- 1456 August, Major depression, recurrent 296.30 ; Anxiety, generalized 300.02 and No condition on [place] II V71.09 [facility] [address] [facility] [id number] [place] [address]- 8496 August, [facility] [address] [place] [address]- 6766 August, [facility] [address] [facility] [id number] [place] [address]- 0869 29 Jul, 2014 [facility] [address] [place] [address]- 5635 Jul, [facility] [address] [place] [address]- 2696 Jul, [facility] [address] [place] [address]- 4163 Jun, [facility] [address] [place] [address]- 1784 30 Jun, 2014 [facility] [address] [place] [address]- 5122 Jun, [facility] [address] [place] [address]- 7967 Jun, [facility] [address] [place] [address]- 8711 Jun, [facility] [id number] [place] [address]- 2819 Jun, [facility] [address] [place] [address]- 4368 23 Jun, 2014 [facility] [id number] [place] [address]- 1616 17 Jun, 2014 [facility] [id number] [place] [address]- 9431 Jun, [facility] [place] [facility] [address] [id number] [place] [address]- 0225 13 Jun, 2014 [facility] [place] [facility] [address] [id number] [place] [address]- 4681 10 Jun, 2014 [facility] [place] [facility] [address] [id number] [place] [address]- 3373 10 Jun, 2014 [facility] [place] [facility] [address] [id number] [place] [address]- 9587 07 Jun, 2014 [facility] [place] [facility] [address] [id number] [place] [address]- 5370 07 Jun, 2014 [facility] [place] [facility] [address] [id number] [place] [address]- 3201 Jun, 2014 [facility] [place] [facility] [address] [facility] [id number] [place] [address]- 9648 Jun, 2014 [facility] [place] [facility] [address] [id number] [place] [address]- 8657 May, 2014 [facility] [place] [facility] [address] [id number] [place] [address]- 3339 May, 2014 [facility] [place] [facility] [address] [facility] [id number] [place] [address]- 5322 May, 2014 [facility] [place] [facility] [address] [id number] [place] [address]- 4072 May, 2014 [facility] [place] [facility] [address] [id number] [place] [address]- 9766 May, 2014 [facility] [place] [facility] [address] [id number] [place] [address]- 4155 May, 2014 [facility] [place] [facility] [address] [id number] [place] [address]- 1076 19 May, 2014 [facility] [place] [facility] [address] [facility] [id number] [place] [address]- 3680 12 May, 2014 [facility] [place] [facility] [address] [facility] [id number] [place] [address]- 7205 May, 2014 [facility] [place] [facility] [address] [id number] [place] [address]- 1516 May, 2014 [facility] [place] [facility] [address] [id number] [place] [address]- 9176 May, 2014 [facility] [place] [facility] [address] [id number] [place] [address]- 4816 May, 2014 [facility] [place] [facility] [address] [id number] [place] [address]- 6456 May, [facility] [place] [facility] [address] [id number] [place] [address]- 7357 May, [facility] [place] [facility] [address] [id number] [place] [address]- 5793 Apr, [facility] [place] [facility] [address] [id number] [place] [address]- 0001 Apr, [facility] [place] [facility] [address] [id number] [place] [address]- 7620 Apr, [facility] [place] [facility] [address] [id number] [place] [address]- 1226 Apr, [facility] [place] [facility] [address] [id number] [place] [address]- 5328 Apr, [facility] [place] [facility] [address] [id number] [place] [address]- 6587 Apr, [facility] [place] [facility] [address] [id number] [place] [address]- 5203 Apr, [facility] [place] [facility] [address] [id number] [place] [address]- 0250 Apr, [facility] [place] [facility] [address] [id number] [place] [address]- 4929 Apr, [facility] [place] [facility] [address] [id number] [place] [address]- 7174 Apr, [facility] [place] [facility] [address] [id number] [place] [address]- 1150 Apr, [facility] [place] [facility] [address] [id number] [place] [address] Apr, [facility] [place] [facility] [address] [id number] [place] [address] Mar, [facility] [place] [facility] [address] [id number] [place] [address] Mar, [facility] [place] [facility] [address] [id number] [place] [address] 30 Mar, 2014 [facility] [place] [facility] [address] [id number] [place] [address] 30 Mar, 2014 [facility] [place] [facility] [address] [id number] [place] [address] Mar, [facility] [place] [facility] [address] [id number] [place] [address] 29 Mar, 2014 [facility] [place] [facility] [address] [id number] [place] [address] Mar, [facility] [place] [facility] [address] [id number] [place] [address] 19 Mar, 2014 [facility] [place] [facility] [address] [id number] [place] [address] 15 Mar, 2014 [facility] [place] [facility] [address] [id number] [place] [address] 15 Mar, 2014 [facility] [place] [facility] [address] [id number] [place] [address] 15 Mar, 2014 [facility] [place] [facility] [address] [id number] [place] [address] 15 Mar, 2014 [facility] [place] [facility] [address] [id number] [place] [address] 15 Mar, 2014 [facility] [place] [facility] [address] [id number] [place] [address] 15 Mar, 2014 [facility] [place] [facility] [address] [id number] [place] [address]- [address] Mar, [facility] [place] [facility] [address] [id number] [place] [address] Mar, [facility] [place] [facility] [address] [id number] [place] [address] Mar, [facility] [place] [facility] [address] [id number] [place] [address] Mar, [facility] [place] [facility] [address] [id number] [place] [address] Mar, [facility] [place] [facility] [address] [id number] [place] [address] Mar, [facility] [place] [facility] [address] [id number] [place] [address]- [address] Feb, [facility] [place] [facility] [address] [id number] [place] [address]- [address] Feb, [facility] [place] [facility] [address] [id number] [place] [address] Feb, [facility] [place] [facility] [address] [facility] [id number] [place] [address] Feb, [facility] [place] [facility] [address] [id number] [place] [address] Feb, [facility] [place] [facility] [address] [id number] [place] [address] Feb, [facility] [place] [facility] [address] [id number] [place] [address]- [address]47 Feb, [facility] [place] [facility] [address] [id number] [place] [address] Feb, [facility] [place] [facility] [address] [id number] [place] [address]- [address] Feb, [facility] [place] [facility] [address] [id number] [place] [address]- [address] Feb, [facility] [place] [facility] [address] [id number] [place] [address] Feb, [facility] [place] [facility] [address] [id number] [place] [address] 280[address] Feb, [facility] [place] [facility] [address] [id number] [place] [address] Feb, [facility] [place] [facility] [address] [id number] [place] [address]- [address] Feb, [facility] [place] [facility] [address] [id number] [place] [address] Feb, [facility] [place] [facility] [address] [id number] [place] [address]- 64[address] Feb, [facility] [place] [facility] [address] [id number] [place] [address] Feb, [facility] [place] [facility] [address] [id number] [place] [address] Jan, [facility] [place] [facility] [address] [id number] [place] [address] Jan, [facility] [place] [facility] [address] [id number] [place] [address]- [address] Jan, [facility] [place] [facility] [address] [id number] [place] [address]- [address] Jan, [facility] [place] [facility] [address] [id number] [place] [address]- [address] Jan, [facility] [place] [facility] [address] [id number] [place] [address] Jan, [facility] [place] [facility] [address] [id number] [place] [address] 6226 16 Jan, 2014 [facility] [place] [facility] [address] [id number] [place] [address]- 2546 Jan, [facility] [place] [facility] [address] [id number] [place] [address] 9572 Jan, [facility] [place] [facility] [address] [id number] [place] [address] 8386 Jan, [facility] [place] [facility] [address] [id number] [place] [address] Jan, [facility] [place] [facility] [address] [id number] [place] [address] 8716 Dec, [facility] [place] [facility] [address] [id number] [place] [address] 2879 Dec, [facility] [place] [facility] [address] [id number] [place] [address] 7394 Nov, [facility] [place] [facility] [address] [id number] [place] [address]- 6994 Nov, [facility] [place] [facility] [address] [id number] [place] [address]- 0945 Nov, [facility] [place] [facility] [address] [id number] [place] [address] 0499 Nov, [facility] [place] [facility] [address] [id number] [place] [address]- 9463 Nov, [facility] [place] [facility] [address] [id number] [place] [address]- 2307 Nov, [facility] [place] [facility] [address] [id number] [place] [address] 3276 Nov, [facility] [place] [facility] [address] [id number] [place] [address]- 2129 Oct, [facility] [place] [facility] [address] [id number] [place] [address]- 2346 Oct, [facility] [place] [facility] [address] [id number] [place] [address]- 9236 Oct, [facility] [place] [facility] [address] [id number] [place] [address]- 2751 Oct, [facility] [place] [facility] [address] [id number] [place] [address]- 4302 Sep, [facility] [place] [facility] [address] [id number] [place] [address]- 4494 Sep, [facility] [place] [facility] [address] [id number] [place] [address]- 2080 Sep, [facility] [place] [facility] [address] [id number] [place] [address]- 6310 Sep, [facility] [place] [facility] [address] [id number] [place] [address]- 7537 Sep, [facility] [place] [facility] [address] [id number] [place] [address]- 7638 Sep, [facility] [place] [facility] [address] [id number] [place] [address]- 6189 Sep, [facility] [place] [facility] [address] [id number] [place] [address]- 4438 Sep, [facility] [place] [facility] [address] [id number] [place] [address]- 0368 Sep, [facility] [place] [facility] [address] [id number] [place] [address]- 8580 Sep, [facility] [place] [facility] [address] [id number] [place] [address] 1887 Sep, [facility] [place] [facility] [address] [id number] [place] [address]- 3843 Sep, [facility] [place] [facility] [address] [id number] [place] [address]- 3132 Sep, [facility] [place] [facility] [address] [id number] [place] [address]- 2918 Sep, [facility] [place] [facility] [address] [id number] [place] [address] 6758 August, [facility] [address] [id number] [place] [address] 6389 August, [facility] [place] [facility] [address] [id number] [place] [address]- 8136 August, [facility] [place] [facility] [address] [id number] [place] [address]- 0917 August, [facility] [place] [facility] [address] [id number] [place] [address]- 2561 August, [facility] [place] [facility] [address] [id number] [place] [address]- 7295 August, [facility] [place] [facility] [address] [id number] [place] [address]- 9985 August, [facility] [place] [facility] [address] [id number] [place] [address]- 9826 August, [facility] [place] [facility] [address] [id number] [place] [address]- 3965 August, [facility] [place] [facility] [address] [id number] [place] [address]- 1071 August, [facility] [place] [facility] [address] [id number] [place] [address]- 9030 August, [facility] [place] [facility] [address] [id number] [place] [address]- 2425 August, [facility] [place] [facility] [address] [id number] [place] [address]- 3203 August, [facility] [place] [facility] [address] [id number] [place] [address]- 6812 August, [facility] [place] [facility] [address] [id number] [place] [address]48 August, [facility] [place] [facility] [address] [id number] [place] [address] August, [facility] [place] [facility] [address] [id number] [place] [address]- 5319 August, [facility] [place] [facility] [address] [id number] [place] [address]- 9462 August, [facility] [place] [facility] [address] [id number] [place] [address]- 1970 August, [facility] [place] [facility] [address] [id number] [place] [address]- 5943 Jul, [facility] [place] [facility] [address] [id number] [place] [address]- 0647 Jul, [facility] [place] [facility] [address] [id number] [place] [address]- 6049 Jul, [facility] [place] [facility] [address] [id number] [place] [address]- 8158 Jul, [facility] [place] [facility] [address] [id number] [place] [address]- 2873 Jun, [facility] [place] [facility] [address] [id number] [place] [address]- 0141 Jun, [facility] [place] [facility] [address] [id number] [place] [address]- 1662 Jun, [facility] [place] [facility] [address] [id number] [place] [address]- 2989 24 Jun, 2013 [facility] [place] [facility] [address] [id number] [place] [address]- 6464 Jun, [facility] [place] [facility] [address] [id number] [place] [address]- 2100 17 Jun, 2013 [facility] [place] [facility] [address] [id number] [place] [address]- 2438 14 Jun, 2013 [facility] [place] [facility] [address] [id number] [place] [address]- 2332 14 Jun, 2013 [facility] [place] [facility] [address] [id number] [place] [address]- 1155 06 Jun, 2013 [facility] [place] [facility] [address] [id number] [place] [address]- 8845 Jun, [facility] [place] [facility] [address] [id number] [place] [address]- 6966 May, [facility] [place] [facility] [address] [id number] [place] [address] 2546 May, [facility] [place] [facility] [address] [id number] [place] [address]- 1761 May, [facility] [place] [facility] [address] [id number] [place] [address]- 1750 May, [facility] [place] [facility] [address] [id number] [place] [address]- 1056 May, [facility] [place] [facility] [address] [facility] [id number] [place] [address]- 7923 May, [facility] [place] [facility] [address] [id number] [place] [address]- 8661 May, [facility] [place] [facility] [address] [facility] [id number] [place] [address]- 0295 May, [facility] [place] [facility] [address] [facility] [id number] [place] [address]- 3954 May, [facility] [place] [facility] [address] [facility] [id number] [place] [address]- 1530 May, [facility] [place] [facility] [address] [facility] [id number] [place] [address]- 2544 May, [facility] [place] [facility] [address] [facility] [id number] [place] [address]- 3975 17 May, 2013 [facility] [place] [facility] [address] [id number] [place] [address]- 7921 May, [facility] [place] [facility] [address] [facility] [id number] [place] [address]- 5266 May, [facility] [place] [facility] [address] [facility] [id number] [place] [address]- 7236 10 May, 2013 [facility] [address] [id number] [place] [address]- 5816 07 May, 2013 [facility] [place] [facility] [address] [id number] [place] [address] 2546 07 May, 2013 [facility] [address] [id number] [place] [address]- 3806 Apr, [facility] [address] [id number] [place] [address]- 9251 Apr, [facility] [address] [id number] [place] [address]- 8936 Apr, [facility] [address] [id number] [place] [address]- 4646 Apr, [facility] [address] [id number] [place] [address]- 9684 Apr, [facility] [address] [id number] [place] [address]- 6744 Apr, [facility] [address] [id number] [place] [address]- 3865 Apr, [facility] [address] [id number] [place] [address]- 3499 Mar, [facility] [place] [facility] [address] [id number] [place] [address]- 0266 Mar, [facility] [address] [id number] [place] [address]- 2546 Mar, [facility] [place] [facility] [address] [id number] [place] [address]- 7386 Mar, [facility] [place] [facility] [address] [id number] [place] [address]- 2546 Mar, [facility] [place] [facility] [address] [id number] [place] [address]- 4579 Mar, [facility] [place] [facility] [address] [id number] [place] [address]- 1246 Mar, [facility] [place] [facility] [address] [id number] [place] [address]- 6973 Mar, [facility] [place] [facility] [address] [id number] [place] Mar, [facility] [place] [facility] [address] [id number] [place] [address]- 1391 Mar, [facility] [place] [facility] [address] [id number] [place] [address]- 9054 Mar, [facility] [place] [facility] [address] [id number] [place] [address]- 6480 Feb, [facility] [place] [facility] [address] [id number] [place] [address]- 5818 Feb, [facility] [place] [facility] [address] [id number] [place] [address]- 9517 Feb, [facility] [place] [facility] [address] [id number] [place] [address]- 8973 Feb, [facility] [place] [facility] [address] [id number] [address]- 0432 Feb, [facility] [place] [facility] [address] [id number] [address]- 4992 19 Feb, 2013 [facility] [place] [facility] [address] [id number] [address]- 3198 15 Feb, 2013 [facility] [place] [facility] [address] [id number] [place] [address]- 8171 14 Feb, 2013 [facility] [place] [facility] [address] [id number] [place] [address]- 7359 14 Feb, 2013 [facility] [place] [facility] [address] [id number] [address]- 7083 13 Feb, 2013 [facility] [place] [facility] [address] [id number] [place] [address]- 5223 Feb, [facility] [place] [facility] [address] [id number] [place] [address]- 4095 Feb, [facility] [place] [facility] [address] [id number] [address]- 4133 Feb, [facility] [place] [facility] [address] [id number] [place] [address]- 8904 Feb, [facility] [place] [facility] [address] [id number] [place] [address]- 9121 Feb, [facility] [place] [facility] [address] [id number] [place] [address]- 5543 Feb, [facility] [place] [facility] [address] [id number] [place] [address]- 7903 Jan, [facility] [place] [facility] [address] [id number] [place] [address]- 1957 Jan, [facility] [place] [facility] [address] [id number] [address]- 3711 Jan, [facility] [place] [facility] [address] [id number] [place] [address]- 9195 Jan, [facility] [place] [facility] [address] [id number] [place] [address]- 2588 Jan, [facility] [place] [facility] [address] [id number] [place] [address]- 6944 Jan, [facility] [place] [facility] [address] [id number] [address]- 2933 Jan, [facility] [place] [facility] [address] [id number] [address]- 3086 10 Jan, 2013 [facility] [place] [facility] [address] [id number] [address]- 5973 10 Jan, 2013 [facility] [place] [facility] [address] [id number] [address]- 8525 27 Dec, 2012 [facility] [place] [facility] [address] [id number] [place] [address]- 3118 20 Dec, 2012 [facility] [place] [facility] [address] [id number] [place] [address] 2546 19 Dec, 2012 [facility] [place] [facility] [address] [id number] [place] [address] 2546 10 Dec, 2012 [facility] [place] [facility] [address] [id number] [place] [address] 2546 04 Dec, 2012 [facility] [place] [facility] [address] [id number] [place] [address] 2541 03 Dec, 2012 [facility] [place] [facility] [address] [id number] [place] [address]- 6385 Nov, [facility] [place] [facility] [address] [id number] [place] [address]- 0430 Nov, [facility] [place] [facility] [address] [id number] [place] [address]- 9653 Nov, [facility] [place] [facility] [address] [id number] [place] [address]- 7419 Nov, [facility] [place] [facility] [address] [id number] [place] [address]- 2726 Nov, [facility] [place] [facility] [address] [id number] [place] [address]- 254 Nov, [facility] [place] [facility] [address] [id number] [place] [address]- 254 Nov, [facility] [place] [facility] [address] [id number] [place] [address] 2544 Nov, [facility] [place] [facility] [address] [id number] [place] [address] 2541 14 Nov, 2012 [facility] [place] [facility] [address] [id number] [place] [address]- 2544 07 Nov, 2012 [facility] [place] [facility] [address] [id number] [place] [address]- 1780 Oct, [facility] [place] [facility] [address] [id number] [place] [address]- 8284 Oct, 2012 [facility] [place] [facility] [address] [id number] [place] [address]- 1444 Oct, [facility] [place] [facility] [address] [id number] [place] [address]- 0198 Oct, 2012 [facility] [place] [facility] [address] [id number] [place] [address]- 4151 Oct, 2012 [facility] [place] [facility] [address] [id number] [place] [address]- 9026 Oct, [facility] [place] [facility] [address] [id number] [place] [address]- 5791 Oct, [facility] [place] [facility] [address] [id number] [place] [address]- 7155 Oct, [facility] [place] [facility] [address] [id number] [place] [address]- 9660 Sep, [facility] [place] [facility] [address] [id number] [place] [address]- 5586 Sep, [facility] [place] [facility] [address] [id number] [place] [address]- 3957 Sep, [facility] [place] [facility] [address] [id number] [address]- 6384 Sep, [facility] [place] [facility] [address] [id number] [address]- 8238 Sep, [facility] [place] [facility] [address] [id number] [place] [address]- 3466 Sep, [facility] [place] [facility] [address] [id number] [address]- 7519 Sep, [facility] [place] [facility] [address] [id number] [place] [address]- 9162 Sep, [facility] [place] [facility] [address] [id number] [place] [address]- 6888 August, [facility] [address] [id number] [place] [address]- 5556 August, [facility] [address] [id number] [place] [address] August, [facility] [address] [id number] [place] [address]- 2776 August, [facility] [address] [id number] [place] [address]- 8143 August, [facility] [address] [id number] [place] [address]85 Jul, [facility] [address] [id number] [place] [address]- 6135 Jul, [facility] [address] [id number] [place] [address]- 0967 Jul, [facility] [address] [id number] [place] [address]- 7688 Jul, [facility] [address] [id number] [place] [address]- 3511 Jul, [facility] [address] [id number] [place] [address]- 0133 Jun, [facility] [address] [id number] [place] [address]- 7300 18 Jun, [address] [facility] [address] [id number] [place] [address]- 9769 15 Jun, 2012 [facility] [address] [id number] [place] [address]- 8464 14 Jun, [address] [facility] [address] [id number] [place] [address]- 8308 12 Jun, [address] [facility] [address] [id number] [place] [address]- 9701 08 Jun, 2012 [facility] [address] [id number] [place] [address]- 1752 08 Jun, 2012 [facility] [address] [id number] [place] [address]- 1806 Jun, [facility] [address] [id number] [place] [address]- 9639 Jun, [facility] [address] [id number] [place] [address]- 4982 May, [facility] [address] [id number] [place] [address]- 2565 May, [facility] [address] [id number] [place] [address]- 6998 May, [facility] [address] [id number] [place] [address]- 0674 May, [facility] [address] [id number] [place] [address]- 7116 Apr, [facility] [address] [id number] [place] [address]- 7258 Apr, [facility] [address] [id number] [place] [address]- 3650 Apr, [facility] [address] [id number] [place] [address] Apr, [facility] [address] [id number] [address] Apr, [facility] [address] [id number] [place] [address] Apr, [facility] [address] [id number] [place] [address] Apr, [facility] [address] [id number] [place] [address] Mar, [facility] [place] [facility] [address] [place] [id number] Mar, [facility] [address] [id number] [place] [address] Mar, [facility] [place] [facility] [address] [id number] [place] [address] Mar, [facility] [address] [id number] [place] [address] Mar, [facility] [place] [facility] [address] [id number] [place] [address] Mar, [facility] [address] [id number] [place] [address] Mar, [facility] [address] [id number] [place] [address] Mar, [facility] [address] [id number] [place] [address] Mar, [facility] [place] [facility] [address] [id number] [place] [address] Mar, [facility] [address] [id number] [place] [address] Mar, [facility] [place] [facility] [address] [id number] [place] [address] Mar, [facility] [place] [facility] [address] [id number] [place] [address] Mar, [facility] [place] [facility] [address] [id number] [address] Mar, [facility] [place] [facility] [address] [id number] [place] [address] Mar, [facility] [place] [facility] [address] [id number] [place] [address] Mar, [facility] [place] [facility] [address] [id number] [place] [address] Mar, [facility] [place] [facility] [address] [id number] [place] [address] Feb, [facility] [address] [id number] [place] [address] 118[address] Feb, [facility] [place] [facility] [address] [id number] [place] [address] Feb, [facility] [place] [facility] [address] [id number] [place] [address]46 Feb, [facility] [place] [facility] [address] [id number] [place] [address]88 Feb, [facility] [place] [facility] [address] [id number] [place] [address] Feb, [facility] [place] [facility] [address] [id number] [place] [address] 8316 Feb, [facility] [address] [id number] [place] [address] Feb, [facility] [address] [id number] [place] [address] Feb, [facility] [place] [facility] [address] [id number] [place] [address] 47[address] Feb, [facility] [address] [id number] [place] [address]40 Feb, [facility] [place] [facility] [address] [id number] [place] [address] 2547 Feb, [facility] [place] [facility] [address] [id number] [place] [address]- 6084 Feb, [facility] [place] [facility] [address] [id number] [place] [address] 2468 Feb, [facility] [place] [facility] [address] [id number] [place] [address] Feb, [facility] [place] [facility] [address] [id number] [place] [address] 49[address] Feb, [facility] [place] [facility] [address] [id number] [place] [address] Jan, [facility] [place] [facility] [address] [id number] [place] [address] 42[address] Jan, [facility] [place] [facility] [address] [id number] [place] [address] Jan, [facility] [place] [facility] [address] [id number] [place] [address] Jan, [facility] [place] [facility] [address] [id number] [place] [address] 8831 Jan, [facility] [place] [facility] [address] [id number] [place] [address] Jan, [facility] [place] [facility] [address] [id number] [place] [address] Jan, [facility] [place] [facility] [address] [id number] [address] Jan, [facility] [place] [facility] [address] [id number] [place] [address] Jan, [facility] [place] [facility] [address] [id number] [address] Jan, [facility] [place] [facility] [address] [facility] [id number] [address] Jan, [facility] [place] [facility] [address] [id number] [place] [address] Jan, [facility] [place] [facility] [address] [id number] [place] [address] Jan, [facility] [place] [facility] [address] [id number] [address] Jan, [facility] [place] [facility] [address] [id number] [place] [address] Jan, [facility] [place] [facility] [address] [id number] [place] [address] 05 Jan, 2012 [facility] [place] [facility] [address] [id number] [place] [address]- [address]66 04 Jan, 2012 [facility] [place] [facility] [address] [id number] [place] [address] 2546 21 Dec, 2011 [facility] [place] [facility] [address] [id number] [place] [address]- [address]646 20 Dec, 2011 [facility] [place] [facility] [address] [id number] [place] [address] 2546 18 Dec, 2011 [facility] [place] [facility] [address] [id number] [place] [address]159 18 Dec, 2011 [facility] [place] [facility] [address] [id number] [place] [address]- 1566 10 Dec, 2011 [facility] [place] [facility] [address] [id number] [place] [address]- 6726 10 Dec, 2011 [facility] [place] [facility] [address] [id number] [place] [address]- 0929 10 Dec, 2011 [facility] [place] [facility] [address] [id number] [place] [address]- [address]30 07 Dec, 2011 [facility] [place] [facility] [address] [id number] [place] [address]- [address]32 30 Nov, 2011 [facility] [place] [facility] [address] [id number] [place] [address] 25 Nov, 2011 [facility] [place] [facility] [address] [id number] [place] [address]- 2549 24 Nov, 2011 [facility] [place] [facility] [address] [id number] [place] [address]- [address]104 Nov, [facility] [place] [facility] [address] [id number] [place] [address]- 1441 Nov, [facility] [place] [facility] [address] [id number] [place] [address]- 1083 16 Nov, 2011 [facility] [place] [facility] [address] [id number] [place] [address] 30 Oct, 2011 [facility] [place] [facility] [address] [id number] [place] [address] 30 Oct, 2011 [facility] [place] [facility] [address] [id number] [place] [address] Oct, [facility] [place] [facility] [address] [id number] [place] [address] Oct, [facility] [place] [facility] [address] [id number] [place] [address] Oct, [facility] [place] [facility] [address] [id number] [place] [address] Oct, [facility] [place] [facility] [address] [id number] [place] [address] Oct, [facility] [place] [facility] [address] [id number] [place] [address] Sep, [facility] [place] [facility] [address] [id number] [place] [address] Sep, [facility] [place] [facility] [address] [id number] [place] [address] 1460 Sep, [facility] [place] [facility] [address] [id number] [place] [address] Sep, [facility] [place] [facility] [address] [id number] [place] [address] 19 Sep, 2011 [facility] [place] [facility] [address] [id number] [place] [address]47 15 Sep, 2011 [facility] [place] [facility] [address] [id number] [place] [address] 14 Sep, 2011 [facility] [place] [facility] [address] [id number] [place] [address]46 11 Sep, 2011 [facility] [place] [facility] [address] [id number] [place] [address] Sep, [facility] [address] [id number] [place] [address] Sep, [facility] [place] [facility] [address] [id number] [place] [address] 56[address] August, [facility] [place] [facility] [address] [id number] [place] [address] 0746 August, [facility] [place] [facility] [address] [id number] [place] [address] 64[address] August, [facility] [address] [id number] [place] [address] 18[address] August, [facility] [place] [facility] [address] [id number] [place] [address]- 45[address] August, [facility] [place] [facility] [address] [id number] [place] [address] 5698 Jul, [facility] [place] [facility] [address] [id number] [place] [address] 4685 Jul, [facility] [place] [facility] [address] [id number] [place] [address] 9961 Jul, [facility] [place] [facility] [address] [id number] [place] [address]- 6595 Jul, [facility] [place] [facility] [address] [id number] [place] [address] 9049 Jul, [facility] [place] [facility] [address] [id number] [place] [address]- 2347 Jul, [facility] [place] [facility] [address] [id number] [place] [address] Jul, [facility] [place] [facility] [address] [id number] [place] [address] 5618 Jun, [facility] [place] [facility] [address] [id number] [place] [address] 7997 Jun, [facility] [place] [facility] [address] [id number] [place] [address] 75[address] Jun, [facility] [place] [facility] [address] [id number] [place] [address] 7449 Jun, [facility] [place] [facility] [address] [id number] [place] [address] Jun, [facility] [place] [facility] [address] [id number] [place] [address] 1766 May, [facility] [place] [facility] [address] [id number] [place] [address] 7[address] May, [facility] [place] [facility] [address] [id number] [place] [address], [place] [address] May, [facility] [place] [facility] [address] [id number] [place] [address] 3107 May, [facility] [place] [facility] [id number] [place] [address], [place] [address] May, [facility] [place] [facility] [address] [id number] [place] [address] 7699 May, [facility] [place] [facility] [id number] [place] [address] Apr, [facility] [place] [facility] [address] [id number] [place] [address] Mar, [facility] [place] [facility] [address] [id number] [place] [address] 2541 Feb, [facility] [place] [facility] [address] [id number] [place] [address] 2543 Feb, [facility] [place] [facility] [address] [facility] [id number] [place] [address] 9394 Feb, [facility] [place] [facility] [address] [facility] [id number] [place] [address] 6838 Feb, [facility] [place] [facility] [address] [facility] [id number] [place] [address] Jan, [facility] [place] [facility] [address] [id number] [place] [address]13 27 Jan, 2011 [facility] [place] [facility] [address] [id number] [place] [address]- 5963 26 Jan, 2011 [facility] [place] [facility] [address] [id number] [place] [address]- 7184 24 Jan, 2011 [facility] [place] [facility] [address] [id number] [place] [address]- 2355 14 Jan, 2011 [facility] [place] [facility] [address] [id number] [place] [address]- 9691 Dec, [facility] [place] [facility] [address] [id number] [place] [address]- 0795 Oct, [facility] [place] [facility] [address] [id number] [place] [address] 5248 August, [facility] [place] [facility] [address] [id number] [place] [address]- 5346 29 Mar, 2010 [facility] [place] [facility] [address] [id number] [place] [address] 2579 27 Mar, 2010 [facility] [place] [facility] [address] [id number] [address] 41[address] 16 Mar, 2010 [facility] [place] [facility] [address] [id number] [address] 3474 15 Mar, 2010 [facility] [place] [facility] [address] [id number] [place] [address] 1789 15 Mar, 2010 [facility] [place] [facility] [address] [id number] [place] [address]- 0947 08 Mar, 2010 [facility] [place] [facility] [address] [id number] [address]- 8826 03 Mar, 2010 [facility] [place] [facility] [address] [id number] [address] 3[address] 24 Feb, 2010 [facility] [place] [facility] [address] [id number] [address] 0682 24 Feb, 2010 [facility] [place] [facility] [address] [id number] [place] [address]- 4008 15 Feb, 2010 [facility] [place] [facility] [address] [facility] [id number] [address] 8024 Jan, [facility] [place] [facility] [address] [facility] [id number] [place] [address]- 1604 18 Jan, 2010 [facility] [place] [facility] [address] [facility] [id number] [address]- 5322 18 Jan, 2010 [facility] [place] [facility] [address] [facility] [id number] [place] [address], [place] [address]- 8384 Nov, [facility] [place] [facility] [address] [facility] [id number] [address]- 3346 Sep, [facility] [place] [facility] [id number] [place] [address] 6843 August, [facility] [place] [facility] [address] [facility] [id number] [address]- 2312 30 Mar, 2009 [facility] [place] [facility] [address] [id number] [address]- 4197 07 Mar, 2009 [facility] [place] [facility] [address] [id number] [address]- 0514 17 Feb, 2009 [facility] [place] [facility] [address] [facility] [id number] [address]- 2267 10 Feb, 2009 [facility] [place] [facility] [address] [facility] [id number] [address]- 5163 10 Feb, 2009 [facility] [place] [facility] [address] [facility] [id number] [address]- 7200 10 Feb, 2009 [facility] [place] [facility] [address] [facility] [id number] [address]- 9641 06 Feb, 2009 [facility] [place] [facility] [address] [id number] [address]- 6094 27 Jan, 2009 [facility] [place] [facility] [address] [id number] [address]- 8136 Jan, [facility] [id number] [address] Jan, [facility] [id number] [id number] Jan, [facility] [id number] [address]- 8598 Nov, [facility] [id number] [address] Sep, [facility] [id number] [address]- 1017 August, [facility] [id number] [address]- 4656 Jul, [facility] [id number] [address]- 6874 May, IMMUNIZATIONS No Known Immunizations SOCIAL HISTORY Never Assessed REASON FOR VISIT Med reconciliation PLAN OF CARE VITAL SIGNS MEDICATIONS Medication Instructions Dosage Frequency Start Date End Date Duration Status Fluticasone Propionate 50 MCG/ACT Nasally 2 times a day 2 sprays in each nostril 12h 30 days Not-Taking Baclofen 20 MG TAKE ONE TABLET BY MOUTH THREE TIMES DAILY WITH FOOD OR MILK 30 Active Trazodone HCl 150 MG Orally Once a day 1 tablet at bedtime 24h Active Omeprazole 40 mg Orally 2 times a day 1 capsule 12h Active Nitroglycerin 0.4 MG Active Oxygen 5 inhalation all the time Active Sumatriptan Succinate 100 MG Orally Twice a day 1 tablet as needed 12h Active Singulair 10 MG TAKE 1 TABLET ONE TIME DAILY 90 Active Remeron 45 MG Orally Once a day at bedtime 1 tablet Feb, Active Donepezil HCl 10 MG Orally Once a day 1 tablet at bedtime 24h Active Glucometer 1 test blood sugar Jul, Active Namenda 10 MG TAKE 1 TABLET EVERY DAY Active Zofran ODT 4 mg Orally every 4 hrs PRN 1 tablet on the tongue and allow to dissolve Jul, Active Magnesium 400 MG Orally Once a day 1 tablet 24h Active Ropinirole HCl 2 MG TAKE 1 TABLET ONE TIME DAILY AT BEDTIME 90 Active Vitamin D 50,000 Orally once a week 1 tablet Active BusPIRone HCl 5 MG Orally Three times a day 1 tablet 8h Active Lomotil 2.5-0.025 mg Orally Four times a day PRN loose stools TWO TABLETS Active Abilify 10 MG Orally Once a day 1 tablet 24h Active Polyethylene Glycol 3350 - Orally in water or juice Once a day in the pm 17 grams Jul, 30 days Active Carafate 1 GM Orally 4 times a day PRN 1 tablet Active Lamictal 25 MG Orally every night 3 tablets Apr, Active Xifaxan 550 MG Orally Three times a day 1 tablet 8h Active Albuterol Sulfate 2.5 mg /3 mL (0.083 %) 1 Each by Inhalation route every 4 hours for cough and wheeze PRN for wheezing or cough Jun, Active Ranitidine HCl 150 MG Orally 2 times a day 1 tablet at bedtime 12h Active Toprol XL 25 MG Orally Once a day 1 tablet 24h Active Mupirocin 2 % Externally two times a day 1 application to affected area 12h Not-Taking Clonazepam 1 MG Orally Once a day 1 tablet 24h Active Spiriva HandiHaler 18 MCG Inhalation Once a day 1 capsule 24h Active Pantoprazole Sodium 40 MG Orally 2 times a day 1 tablet 12h Active Ventolin HFA 108 (90 Base) MCG/ACT INHALE 2 PUFFS EVERY 4 HOURS NEEDED 16 Active Farxiga 5 mg Orally Once a day 1 tablet 24h Jul, Oct, 30 day(s) Active Oxybutynin Chloride ER 10 MG Orally Once a day 1 tablet 24h Active Melatonin 5 MG Orally Once a day 1 tablet at bedtime as needed with food 24h Jun, 30 day(s) Not-Taking Naproxen 250 MG Orally Twice a day PRN migraines 1 tablet with food or milk Active Tessalon Perles 100 mg Orally Three times a day 1 capsule as needed 8h Jul, Not-Taking Diltiazem HCl ER 240 MG Orally Once a day 1 capsule 24h Active Cetirizine HCl 10 MG Orally Once a day 1 tablet as needed 24h Not- Taking Benefiber - Active Welchol 625 MG Orally twice a day 2 tablets 12h Active Neurontin 400 mg Orally Three times a day 1 capsule 8h August, 30 day(s) Active Calcium Orally Once a day 1 tablet with D3 800 24h Active Sertraline HCl 100 MG Orally Once a day 1 tablet 24h Active Eliquis 5 MG Orally 2 times a day 12h Active Symbicort 160-4.5 MCG/ACT INHALE 2 PUFFS TWICE DAILY, IN THE MORNING AND IN THE EVENING 90 Active Alendronate Sodium 70 MG TAKE [...] Knee Surgery 07/16/17 Hospitalization History [facility]- left hand/wrist swelling 10/09/2017
--- OUTSIDE RECORDS SUMMARY | 2018-01-01 11:42 | XMS REPORT ---
Author Author SENAIT DUNLAP [facility] Address [address] [place] [address] Care Team Providers [employer] Official Name Role Phone SENAIT DUNLAP Unavailable PROBLEMS Type Condition ICD9-CM Code JEK93-[place] Code Onset Dates Condition Status SNOMED Code Problem History of common bile duct surgery Z98.89 Active 330573584 Problem Barretts esophagus K22.70 Active 118895359 Problem 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 Active 02787312 Problem Colon polyp K63.5 Active 79673124 Problem Bilateral low back pain without sciatica M54.5 Active 895726422 Problem Screening breast examination Z12.39 Active 488110875 Problem Postmenopausal Z78.0 Active 71199933 Problem Osteopenia M85.80 Active 644109126 Problem Cigarette nicotine dependence without complication F17.210 Active 47919985 Problem Type 2 diabetes mellitus with diabetic peripheral angiopathy without gangrene E11.51 Active 914727608 Problem Vascular dementia without behavioral disturbance F01.50 Active [id number] Problem Unspecified atherosclerosis of [place] arteries of extremities, unspecified extremity I70.209 Active 883639187847831 Problem Arthritis M19.90 Active 9934938 Problem Chronic atrial fibrillation I48.2 Active 151116714 Problem Chronic obstructive pulmonary disease with acute lower respiratory infection J44.0 Active 735950177 Problem Other chronic pancreatitis K86.1 Active 553470717 Problem Stress incontinence of urine N39.3 Active 23975510 Problem Controlled type 2 diabetes mellitus without complication, without long -term current use of insulin E11.9 Active 476243334 Problem Unspecified psychosis F29 Active 85768971 Problem Xeroderma Q80.9 Active 92937684 Problem COPD (chronic obstructive pulmonary disease) J44.9 Active 43900161 Problem Dementia without behavioral disturbance, unspecified dementia type F03.90 Active 72658078 Problem Gastroparesis K31.84 Active 163737610 Problem Type 2 diabetes mellitus with diabetic neuropathy, without long-term current use of insulin E11.40 Active 54229436 Problem Osteoporosis M81.0 Active 86975709 Problem Atherosclerosis of [place] artery of both lower extremities with intermittent claudication I70.213 Active 551786317897955 Problem Hyperlipidemia E78.5 Active 12003896 Problem Diabetic polyneuropathy associated with type 2 diabetes mellitus E11.42 Active 76310388 Problem Essential tremor G25.0 Active 34623921 Problem Atherosclerotic heart disease of [place]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 I25.118 Active 0313287471859 Problem Generalized anxiety disorder F41.1 Active 303959548 Problem Gastroesophageal reflux disease, esophagitis presence not specified K21.9 Active 148382929 Problem Coronary artery disease involving [place] coronary artery of [place] 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 I25.118 Active 3696637370830 Problem Postconcussion syndrome F07.81 Active 33231497 Problem Chronic pain syndrome G89.4 Active 967233414 Problem Migraine without aura and without status migrainosus, not intractable G43.009 Active 060774663 Problem Paroxysmal atrial fibrillation I48.0 Active 374574328 Problem Migraine without aura and with status migrainosus, not intractable G43.001 Active 845325849 Problem Cervicalgia M54.2 Active 1269640784910 Problem Acute exacerbation of chronic obstructive pulmonary disease (COPD) J44.1 Active 418936278 Problem Major depressive disorder, recurrent episode, moderate F33.1 Active 739850413 Problem Crohn''s disease without complication, unspecified gastrointestinal tract location K50.90 Active 29072372 Problem Chronic fatigue R53.82 Active 65083950 Problem Bipolar affective disorder, currently depressed, moderate F31.32 Active 379977649 ALLERGIES No Information ENCOUNTERS Encounter Location Date Diagnosis [place] [address], [place] [address] Nov, [place] [address], [place] [address] Nov, [place] [address], [place] [address] Nov, Bronchitis J40 [place] [address], [place] [address] Oct, [place] [address], [place] [address] Oct, Bipolar affective disorder, currently depressed, moderate F31.32 ; Vascular dementia without behavioral disturbance F01.50 and Generalized anxiety disorder F41.1 [facility] [address], [place] [address] Oct, [facility] [address] [place] [id number] [place] [address] 72872- 4351 Oct, [facility] [address] [place] [id number] [place] [address] 06190- 1583 Oct, Edema of both legs R60.0 [facility] [address] [place] [id number] [place] [address] 42964- 6812 Oct, [facility] [address] [place] [id number] [place] [address] 73656- 7034 Sep, [facility] [address] [place] [id number] [place] [address] 80042- 6096 Sep, [facility] [address] [place] [id number] [place] [address] 44546- 7413 Sep, [facility] [address] [place] [id number] [place] [address] 24041- 9941 Sep, Encounter for well woman exam with routine gynecological exam Z01.419 ; Screening for STDs (sexually transmitted diseases) Z11.3 ; Screening breast examination Z12.31 and Overweight (BMI 25.0-29.9) E66.3 [facility] [address], [place] [address] 1722 Sep, [facility] [address] [place] [id number] [place] [address] 96289- 8251 Sep, [facility] [address], [place] [address] 7733 Sep, [facility] [address] [place] [address] 27869- 2514 August, [facility] [address], [place] [address] 7154 August, [facility] [address] [place] [id number] [place] [address] 51723- 9581 August, Type 2 diabetes mellitus with diabetic neuropathy, without long-term current use of insulin E11.40 and Sprain of right ankle, unspecified ligament, initial encounter S93.401A [facility] [address] [place] [id number] [place] [address] 53070- 1093 August, [facility] [address] [place] [address] 75191- 5992 August, [facility] [address] [place] [id number] [place] [address] 79043- 8094 August, [facility] [address] [place] [address] [id number] [place] [address] 72925- 9352 August, Gastroesophageal reflux disease, esophagitis presence not specified K21.9 [facility] [address] [place] [address] [id number] [place] [address] 10017- 4532 August, [facility] [address] [address] [id number] [place] [address] 88365- 5375 August, [facility] [address], [place] [address] 1207 August, [facility] [address] [place] [address] 47858- 1899 August, Type 2 diabetes mellitus with diabetic neuropathy, without long-term current use of insulin E11.40 and Elevated liver enzymes R74.8 [facility] [address], [place] [address]- 8187 Jul, [facility] [address] [place] [id number] [place] [address] 84184- 2325 Jul, Cough R05 [facility] [address] [place] [address] 88891- 4125 Jul, [facility] [address] [place] [id number] [place] [address] 09106- 5208 Jul, [facility] [address] 60031- 2277 Jul, Bipolar affective disorder, currently depressed, moderate F31.32 ; Vascular dementia without behavioral disturbance F01.50 and Generalized anxiety disorder F41.1 [facility] [address] 49540- 5672 Jul, [facility] [address] 54137- 1343 Jul, Type 2 diabetes mellitus with diabetic neuropathy, without long-term current use of insulin E11.40 and Elevated liver enzymes R74.8 [facility] [address] [place] [id number] [place] [address] 23204- 5550 Jul, [facility] [address] 83280- 5527 Jul, [facility] [address] [place] [id number] [place] [address] 49382- 7283 Jul, [facility] [address] 66976- 8411 Jul, Post-menopausal Z78.0 [facility] [address] [place] [id number] [place] [address] 22182- 9241 Jul, Stress incontinence of urine N39.3 [facility] [address] [place] [id number] [place] [address] 04546- 2228 Jul, [facility] [address] [place] [id number] [place] [address] 69067- 7777 Jul, [facility] [address] [place] [id number] [place] [address] 65769- 7083 Jul, Stress incontinence of urine N39.3 and Cough R05 [facility] [address] [place] [id number] [place] [address] 04956- 2534 Jul, [facility] [address], [place] [address]- 6952 Jul, [facility] [address] [place] [id number] [place] [address] 86851- 8950 Jul, [facility] [address] [place] [id number] [place] [address] 20864- 7348 Jul, Gastroesophageal reflux disease, esophagitis presence not specified K21.9 [facility] [address] [place] [id number] [place] [address] 69031- 7337 Jun, Diabetic polyneuropathy associated with type 2 diabetes mellitus E11.42 [place] [address] [place] [id number] [place] [address] Jun, Diabetic polyneuropathy associated with type 2 diabetes mellitus E11.42 ; Coronary artery disease involving [place] coronary artery of [place] 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 I25.118 and Paroxysmal atrial fibrillation I48.0 [facility] [address] [place] [id number] [place] [address] 19433- 8914 Jun, [facility] [address] [place] [id number] [place] [address] 15555- 5064 Jun, [facility] [address] [place] [id number] [place] [address] 67655 254 Jun, Gastroenteritis K52.9 [facility] [address] [place] [id number] [place] [address] 41632 2549 Jun, Gastroenteritis K52.9 [facility] [address] [place] [id number] [place] [address] 35236 2545 Jun, [facility] [address] [place] [address] 55936- 7860 Jun, [facility] [address] [place] [id number] [place] [address] 25661- 4284 Jun, Sprain of right ankle, unspecified ligament, [...] without complication, unspecified gastrointestinal tract location K50.90 [facility] [address], [place] [address] 17 Jun, 2017 Cough R05 and Chronic obstructive pulmonary disease with acute lower respiratory infection J44.0 [facility] [address] [place] [id number] [place] [address] 39620- 9146 Jun, [place] [address] [place] [id number] [place] [address] 46566- 1172 Jun, Coughing R05 ; Unspecified atherosclerosis of [place] arteries of extremities, unspecified extremity I70.209 ; Type 2 diabetes mellitus with diabetic peripheral angiopathy without gangrene E11.51 ; Crohn''s disease without complication, unspecified gastrointestinal tract location K50.90 ; Other chronic pancreatitis K86.1 and Chronic atrial fibrillation I48.2 [facility] [address] [place] [address] 35741 -8332 Jun, [place] [address] [place] [id number] [place] [address] 22521- 2179 Jun, Bipolar affective disorder, currently depressed, moderate F31.32 ; Vascular dementia without behavioral disturbance F01.50 and Generalized anxiety disorder F41.1 [place] [address] [place] [id number] [place] [address] 34378- 5096 May, Generalized anxiety disorder F41.1 [place] [address] [place] [address] 89002- 0000 May, [place] [address] [place] [id number] [place] [address] 80133- 8835 May, [place] [address] [place] [id number] [place] [address] 70868- 0559 15 May, 2017 Coughing R05 [place] [address] [place] [id number] [place] [address] 93426- 9862 May, [place] [id number] [place] [address] 37558- 7033 May, Bipolar affective disorder, currently depressed, moderate F31.32 ; Vascular dementia without behavioral disturbance F01.50 and Generalized anxiety disorder F41.1 [place] [address] [place] [id number] [place] [address] 06078- 4304 Apr, Generalized anxiety disorder F41.1 [place] [address] [place] [id number] [place] [address] 38472- 2065 Apr, [place] [address] [place] [id number] [place] [address] 19431- 5186 Apr, Vascular dementia without behavioral disturbance F01.50 ; Generalized anxiety disorder F41.1 and Bipolar affective disorder, currently depressed, moderate F31.32 [place] [address] [place] [id number] [place] [address] 32889- 6377 Apr, Generalized anxiety disorder F41.1 [facility] [address] [place] [id number] [place] [address] 78767 -9356 Apr, Cough R05 and Acute exacerbation of chronic obstructive pulmonary disease (COPD) J44.1 [place] [address] [place] [id number] [place] [address] 09493- 8977 Apr, [facility] [address] [place] [address] 30513 -5586 Mar, Cough R05 and Cigarette nicotine dependence without complication F17.210 [place] [address] [place] [id number] [place] [address] 59083- 4374 Mar, [place] [address] [place] [id number] [place] [address] 98649- 2357 Feb, Generalized anxiety disorder F41.1 ; Major depressive disorder, recurrent episode, moderate F33.1 ; Vascular dementia without behavioral disturbance F01.50 and Unspecified psychosis F29 [place] [address] [place] [id number] [place] [address] 51669- 8037 Feb, [place] [address] [place] [address] 81579- 4875 Feb, [place] [address] [place] [id number] [place] [address] 47822- 6709 Feb, Generalized anxiety disorder F41.1 [place] [address] [place] [id number] [place] [address] 31358- 0873 Feb, Generalized anxiety disorder F41.1 [place] [address] [place] [id number] [place] [address] 36809- 0521 Feb, Dizziness R42 ; Chronic fatigue R53.82 ; Postconcussion syndrome F07.81 ; Fall, initial encounter W19.XXXA and Disorientation R41.0 [place] [address] [place] [id number] [place] [address] 88647- 3850 Feb, Postconcussion syndrome F07.81 ; Injury of head, initial encounter S09.90XA ; Fall, initial encounter W19.XXXA ; Disorientation R41.0 and Acute cystitis with hematuria N30.01 [place] [address] [place] [id number] [place] [address] 40535- 1215 Jan, Gastroesophageal reflux disease, esophagitis presence not specified K21.9 ; Post-menopausal Z78.0 and Migraine without aura and without status migrainosus, not intractable G43.009 [place] [address] [place] [id number] [place] [address] 05078- 9814 Jan, [place] [address] [place] [id number] [place] [address] 73519- 9738 Jan, Generalized anxiety disorder F41.1 ; Major depressive disorder, recurrent episode, moderate F33.1 ; Vascular dementia without behavioral disturbance F01.50 and Unspecified psychosis F29 [place] [address] [place] [address] 42305- 6229 Jan, Pneumonia of left lower lobe due to infectious organism J18.1 [place] [address] [place] [address]- 8410 05 Jan, 2017 Migraine without aura and with status migrainosus, not intractable G43.001 [facility] [address] [place] [id number] [place] [address] 35692 -4937 Jan, Migraine without aura and without status migrainosus, not intractable G43.009 [facility] [address] [place] [id number] [place] [address] 00963- 6178 Dec, Hematoma T14.8 [facility] [address] [place] [id number] [place] [address] 13814- 1690 Dec, [facility] [address] [place] [id number] [place] [address] 68797 -5705 Nov, Fatigue, unspecified type R53.83 [place] [address] [place] [id number] [place] [address] 42651- 1373 Nov, Scabies B86 and Coronary artery disease involving [place] coronary artery of [place] 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 I25.118 [place] [address] [place] [id number] [place] [address] 56767- 2002 Nov, [place] [address] [place] [id number] [place] [address] 60454- 1776 Nov, [place] [address] [place] [id number] [place] [address] 29712- 2908 Oct, [facility] [address] [place] [id number] [place] [address] 00512- 4414 Oct, Generalized anxiety disorder F41.1 and Major depressive disorder, recurrent episode, moderate F33.1 [facility] [address] 22814- 7106 Oct, Cramp of both lower extremities R25.2 [facility] [address] [place] [id number] [place] [address] 97867- 2742 Oct, Leg cramps R25.2 [place] [address] [place] [address]- 1392 Oct, Chronic pain syndrome G89.4 [facility] [address] [place] [id number] [place] [address] 38007- 5581 17 Oct, 2016 [facility] [address] [place] [id number] [place] [address] 35547- 1323 Oct, [facility] [address] [place] [id number] [place] [address] 68130- 5095 Oct, Routine gynecological examination Z01.419 and Screening for breast cancer Z12.31 [facility] [address] [place] [id number] [place] [address] 31111- 4293 28 Sep, 2016 Diarrhea R19.7 [facility] [address] [place] [id number] [place] [address] 82917- 1998 Sep, Back pain M54.9 [place] [address] [place] [id number] [place] [address] 71541- 6662 Sep, [facility] [address] [place] [id number] [place] [address] 41859- 7447 Sep, [facility] [address] [place] [id number] [place] [address] 92791 -1458 August, Xeroderma Q80.9 [facility] [address] [place] [id number] [place] [address] 32984- 3194 August, Dementia without behavioral disturbance, unspecified dementia type F03.90 [facility] [address] [place] [id number] [place] [address] 10654- 6346 August, Chronic pain syndrome G89.4 [facility] [address] [place] [id number] [place] [address] 33327- 4123 August, [facility] [address] [place] [id number] [place] [address] 93232- 4471 August, Hyperlipidemia E78.5 ; Other fatigue R53.83 and Other specified hypotension I95.89 [facility] [address] [place] [address] 30310 -1456 August, Dysuria R30.0 ; Other fatigue R53.83 and Other specified hypotension I95.89 [place] [address] 48140- 1028 August, [place] [address] 58863- 8417 Jul, Pain in left knee M25.562 and Gastroenteritis K52.9 [place] [address] 70929- 7354 Jul, [place] [address] 69839- 9466 Jul, Diarrhea R19.7 [facility] [address] 08969 -8957 Jul, Spider bite, accidental or unintentional, initial encounter T63.301A [place] [address] 55036- 1176 Jul, Primary osteoarthritis of right knee M17.11 and Arthritis M19.90 [place] [address] 75711- 5118 Jul, Generalized anxiety disorder F41.1 and Major depressive disorder, recurrent episode, moderate F33.1 [place] [address] 35297- 0970 Jul, Type 2 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 and Temporal headache R51 [place] [address] 02561- 2613 Jul, Back pain M54.9 [place] [address] 05984- 2201 Jul, [place] [address] 50269- 1900 Jul, [place] [address] 92334- 0175 Jun, Nausea R11.0 [facility] [address] [place] [id number] [place] [address] 44540 -0134 Jun, Acute suppurative otitis media of both ears without spontaneous rupture of tympanic membranes, recurrence not specified H66.003 and COPD exacerbation J44.1 [place] [address] 70114- 7822 Jun, Generalized anxiety disorder F41.1 [facility] [address] 41728- 4247 16 Jun, 2016 [facility] [address] 11454 -1769 Jun, [facility] [address] 30134 -2298 Jun, Shortness of breath R06.02 and COPD exacerbation J44.1 [place] [address] 22847- 6583 10 Jun, 2016 Eczema, unspecified type L30.9 [place] [address] 01135- 2473 Jun, [place] [address] 57398- 1186 May, [place] [address] 95636- 6735 May, Muscle cramping R25.2 [place] [address] 69658- 4285 May, [facility] [address] 59301- 7217 Apr, Diarrhea R19.7 [facility] [address] 79857- 9932 Apr, [place] [address] 55130- 2427 Apr, Chronic pain syndrome G89.4 [place] [address] 96725- 4064 16 Apr, 2016 Cramp of both lower extremities R25.2 and Vascular dementia without behavioral disturbance F01.50 [place] [address] 24905- 3574 Apr, Type 2 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 and Cigarette nicotine dependence without complication F17.210 [place] [address] 77821- 3667 Mar, Generalized anxiety disorder F41.1 [place] [address] 98090- 8218 Feb, Generalized anxiety disorder F41.1 and Major depressive disorder, recurrent episode, moderate F33.1 [place] [address] 73759- 3384 Feb, [facility] [address] 47323 -1698 05 Feb, 2016 Dysuria R30.0 and Acute cystitis with hematuria N30.01 [place] [address] 46934- 1771 31 Jan, 2016 [place] [address] 23527- 9561 Jan, [place] [address] 60924- 0888 Jan, [place] [address] 65148- 4408 11 Jan, 2016 [facility] [address] 53385 -6804 10 Jan, 2016 Wasp sting, accidental or unintentional, initial encounter T63.461A [place] [address] 55512- 2596 Jan, Encounter for immunization Z23 [facility] [address] [place] [id number] [place] [address] 54412- 2208 Jan, [facility] [address] [place] [id number] [place] [address] 71830- 0260 Jan, [facility] [address] [place] [id number] [place] [address] 68226- 2571 28 Dec, 2015 Generalized anxiety disorder F41.1 and Major depressive disorder, recurrent episode, moderate F33.1 [place] [address] [address] [address] [id number] [place] [address] 13366- 3436 21 Dec, 2015 Routine gynecological examination Z01.419 ; Postmenopausal Z78.0 ; Screening breast examination Z12.39 ; Osteopenia M85.80 and Breast cancer screening Z12.39 [place] [id number] [place] [address] 16904- 4865 20 Dec, 2015 [place] [id number] [place] [address] 33033- 3245 19 Dec, 2015 [facility] [id number] [place] [address] 51362- 0337 16 Dec, 2015 [place] [id number] [place] [address] 72721- 3217 16 Dec, 2015 [facility] [id number] [place] [address] 87995- 8724 14 Dec, 2015 [facility] [id number] [place] [address] 03054- 7430 06 Dec, 2015 [facility] [id number] [place] [address] 41430- 0435 Nov, [facility] [id number] [place] [address] 19617 -2468 Nov, Cough R05 ; Other viral agents as the cause of diseases classified elsewhere B97.89 and Acute upper respiratory infection, unspecified J06.9 [place] [address] [place] [address]- 2776 Nov, [facility] [address], [place] [address] 3097 Nov, [facility] [address], [place] [address]- 2554 Nov, [facility] [address], [place] [address]- 9042 Nov, [facility] [address], [place] [address]- 4423 Nov, [facility] [address], [place] [address]- 0320 Oct, [facility] [address], [place] [address]- 2344 Oct, [facility] [address], [place] [address]- 1872 Oct, [facility] [address], [place] [address]- 9962 Oct, Chronic pain syndrome G89.4 [facility] [address], [place] [address] 0047 Sep, Generalized anxiety disorder F41.1 and Major depressive disorder, recurrent episode, moderate F33.1 [facility] [address], [place] [address]- 6527 Sep, [facility] [address], [place] [address]- 1601 Sep, [facility] [address], [place] [address]- 9336 14 Sep, 2015 Generalized anxiety disorder F41.1 [facility] [address], [place] [address]- 2829 13 Sep, 2015 Cramp of both lower extremities R25.2 and Cervicalgia M54.2 [facility] [id number] [place] [address] 98079- 3671 Sep, Generalized anxiety disorder F41.1 [facility] [id number] [place] [address] 55504- 8905 Sep, [facility] [id number] [place] [address] 41225 -3967 August, Rash R21 ; Itching L29.9 and Allergic response, subsequent encounter T78.40XD [facility] [address] [address] 1980 August, Primary insomnia F51.01 [facility] [id number] [place] [address] 94163 -4595 August, Rash R21 ; Itching L29.9 and Allergic response, initial encounter T78.40XA [facility] [id number] [place] [address] 27335- 8057 August, [facility] [id number] [place] [address] 89054- 9851 August, Cramp of both lower extremities R25.2 [facility] [facility] [id number] [place] [address] 62943- 6508 August, Back pain M54.9 [facility] [id number] [place] [address] 05379- 3479 August, [facility] [id number] [place] [address] 51147- 4559 August, [facility] [id number] [place] [address] 53079 -5003 August, Cramp of both lower extremities R25.2 [facility] [id number] [place] [address] 43111- 1266 August, [facility] [id number] [place] [address] 31425- 7017 August, Syncope R55 ; Paroxysmal atrial fibrillation I48.0 ; Dementia without behavioral disturbance, unspecified dementia type F03.90 and Chronic pain syndrome G89.4 [facility] [id number] [place] [address] 54098- 1805 August, Type 2 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 and Syncope R55 [facility] [id number] [place] [address] 24614- 3995 Jul, [facility] [id number] [place] [address] 90654- 5001 Jul, [facility] [id number] [place] [address] 68385- 7620 Jul, [facility] [id number] [place] [address] 52738- 4316 Jul, [facility] [id number] [place] [address] 65777- 4487 Jul, [facility] [id number] [place] [address] 66288- 5723 Jul, UTI (urinary tract infection) N39.0 [facility] [id number] [place] [address] 47008- 8165 Jul, [facility] [id number] [place] [address] 54020- 4499 Jul, Major depressive disorder, recurrent episode, moderate F33.1 and Generalized anxiety disorder F41.1 [facility] [id number] [place] [address] 95820- 2132 Jul, Generalized anxiety disorder F41.1 [facility] [id number] [place] [address] 32563- 2271 Jul, Diarrhea R19.7 [facility] [id number] [place] [address] 37673- 2713 Jul, [facility] [address], [place] [address]- 0344 Jun, [facility] [address], [place] [address]- 0474 Jun, Eczema L30.9 [facility] [address], [place] [address]- 8576 Jun, [facility] [address], [place] [address]- 7122 Jun, COPD (chronic obstructive pulmonary disease) J44.9 [facility] [address], [place] [address]- 1446 Jun, [facility] [address], [place] [address]- 5901 Jun, Major depressive disorder, recurrent episode, moderate F33.1 and Generalized anxiety disorder F41.1 [facility] [address], [place] [address]- 6387 May, [facility] [address], [place] [address]- 3007 May, UTI (urinary tract infection) N39.0 [facility] [address], [place] [address]- 0376 May, [facility] [address], [place] [address]- 6090 May, [facility] [address], [place] [address]- 1122 May, [facility] [address], [place] [address]- 4166 May, [facility] [address], [place] [address]- 2529 Apr, Major depressive disorder, recurrent episode, moderate F33.1 and Generalized anxiety disorder F41.1 [facility] [address], [place] [address]- 3606 Apr, COPD (chronic obstructive pulmonary disease) J44.9 [facility] [id number] [place] [address] 87993- 7670 Apr, [facility] [id number] [place] [address] 32498- 0552 Apr, Atrial flutter I48.92 [facility] [id number] [place] [address] 86153- 1542 Apr, [facility] [id number] [place] [address] 37192- 7078 Apr, [facility] [id number] [place] [address] 03362- 1046 Mar, [facility] [id number] [place] [address] 35753- 8157 Mar, [facility] [id number] [place] [address] 54681- 4951 Mar, [facility] [id number] [place] [address] 93040- 8901 Mar, Hyperlipidemia E78.5 ; Type 2 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 ; Major depressive disorder, recurrent episode, moderate F33.1 and Chronic pain syndrome G89.4 [facility] [id number] [place] [address] 20966- 8300 16 Mar, 2015 [facility] [id number] [place] [address] 99070- 1903 Mar, [facility] [id number] [place] [address] 77177- 4587 Mar, [facility] [id number] [place] [address] 07686- 1623 Mar, [facility] [id number] [place] [address] 06955- 0866 30 Feb, 2015 COPD (chronic obstructive pulmonary disease) J44.9 and Back pain M54.9 [facility] [id number] [place] [address] 53717- 2023 Feb, [facility] [address], [place] [address]- 2840 Feb, [facility] [id number] [place] [address] 77418- 4575 Feb, [facility] [id number] [place] [address] 20514- 0825 Feb, [facility] [id number] [place] [address] 22348- 5559 Feb, [facility] [id number] [place] [address] 15949- 8591 Feb, [facility] [id number] [place] [address] 16587- 9659 Feb, [facility] [id number] [place] [address] 96872- 4478 Feb, [facility] [id number] [place] [address] 00246- 3197 Feb, Diabetes E11.9 ; Back pain M54.9 and COPD (chronic obstructive pulmonary disease) J44.9 [facility] [id number] [place] [address] 29977- 6526 Jan, [facility] [id number] [place] [address] 82458- 4731 Jan, Major depression, recurrent F33.9 and Generalized anxiety disorder F41.1 [facility] [address], [place] [address]- 5762 Jan, Chronic pain G89.29 [facility] [id number] [place] [address] 47871- 6997 Jan, [facility] [address], [place] [address]- 6763 Jan, [facility] [id number] [place] [address] 84048- 6459 Jan, [facility] [id number] [place] [address] 39122- 9734 Jan, [facility] [id number] [place] [address] 90989- 6729 Jan, Nicotine dependence F17.200 [facility] [id number] [place] [address] 95994- 1666 Jan, Nicotine dependence F17.200 and Back pain M54.9 [facility] [id number] [place] [address] 30831- 9901 Jan, [facility] [id number] [place] [address] 85355- 2648 28 Dec, 2014 [facility] [id number] [place] [address] 51060- 5709 25 Dec, 2014 Anxiety, generalized 300.02 and Major depression, recurrent 296.30 [facility] [id number] [place] [address] 16977- 5690 24 Dec, 2014 [facility] [id number] [place] [address] 86206- 3320 21 Dec, 2014 [facility] [id number] [place] [address] 72194- 1626 17 Dec, 2014 [facility] [id number] [place] [address] 62285- 2253 15 Dec, 2014 [facility] [id number] [place] [address] 95815- 8364 14 Dec, 2014 [facility] [id number] [place] [address] 67352- 8717 11 Dec, 2014 [facility] [id number] [place] [address] 29828- 7784 10 Dec, 2014 [facility] [id number] [place] [address] 70376- 8779 08 Dec, 2014 Skin tear 879.8 [facility] [address] [place] [address]- 3099 08 Dec, 2014 Routine gynecological examination V72.31 ; Breast cancer screening V76.10 and Family history of breast cancer in first degree relative V16.3 [facility] [id number] [place] [address] 96654- 3046 Dec, [facility] [id number] [place] [address] 88920- 5927 Dec, [facility] [id number] [place] [address] 19425- 5206 Nov, [facility] [id number] [place] [address] 27265- 8863 Nov, [facility] [id number] [place] [address] 53412- 3946 Nov, Poor balance 781.99 and Vascular dementia, uncomplicated 290.40 [facility] [id number] [place] [address] 05389- 3623 Nov, [facility] [id number] [place] [address] 10723- 3688 Nov, Major depression, recurrent 296.30 and Anxiety, generalized 300.02 [facility] [id number] [place] [address] 22891- 5040 Nov, [facility] [id number] [place] [address] 68440- 6462 Nov, [facility] [id number] [place] [address] 30751- 1490 Nov, [facility] [id number] [place] [address] 45664- 9314 Nov, [facility] [id number] [place] [address] 50520- 0226 Nov, Vascular dementia, uncomplicated 290.40 and Lumbago 724.2 [facility] [id number] [place] [address] 18601- 9396 Nov, [facility] [address], [place] [address]- 8891 Nov, [facility] [id number] [place] [address]- 6786 Nov, [facility] [address], [place] [address]- 7329 Oct, [facility] [id number] [place] [address] 70758- 0289 Oct, [facility] [id number] [place] [address] 17325- 4392 Oct, [facility] [id number] [place] [address] 09952- 0911 Oct, COPD (chronic obstructive pulmonary disease) 496 and Hyperlipidemia 272.4 [facility] [id number] [place] [address] 92759- 0595 Oct, Major depression, recurrent 296.30 and Anxiety, generalized 300.02 [facility] [address], [place] [address]- 7313 Oct, [facility] [address], [place] [address]- 9281 Oct, [facility] [address], [place] [address]- 1015 Oct, [facility] [address], [place] [address]- 5738 Sep, Lumbago 724.2 and Anxiety state, unspecified 300.00 [facility] [address], [place] [address]- 8514 Sep, [facility] [address], [place] [address]- 9127 Sep, [facility] [address], [place] [address]- 7055 August, [facility] [address], [place] [address]- 2517 August, Major depression, recurrent 296.30 ; Anxiety, generalized 300.02 and No condition on [place] II V71.09 [facility] [address] [facility] [id number] [place] [address]- 4056 August, [facility] [address] [place] [address]- 5646 August, [facility] [address] [facility] [id number] [place] [address]- 7075 29 Jul, 2014 [facility] [address] [place] [address]- 0595 Jul, [facility] [address] [place] [address]- 8436 Jul, [facility] [address] [place] [address]- 4066 Jun, [facility] [address] [place] [address]- 9913 30 Jun, 2014 [facility] [address] [place] [address]- 2062 Jun, [facility] [address] [place] [address]- 9539 Jun, [facility] [address] [place] [address]- 2624 Jun, [facility] [id number] [place] [address]- 3006 Jun, [facility] [address] [place] [address]- 7854 23 Jun, 2014 [facility] [id number] [place] [address]- 7036 17 Jun, 2014 [facility] [id number] [place] [address]- 6393 Jun, [facility] [place] [facility] [address] [id number] [place] [address]- 0059 13 Jun, 2014 [facility] [place] [facility] [address] [id number] [place] [address]- 5183 10 Jun, 2014 [facility] [place] [facility] [address] [id number] [place] [address]- 3635 10 Jun, 2014 [facility] [place] [facility] [address] [id number] [place] [address]- 0703 07 Jun, 2014 [facility] [place] [facility] [address] [id number] [place] [address]- 7222 07 Jun, 2014 [facility] [place] [facility] [address] [id number] [place] [address]- 0708 Jun, 2014 [facility] [place] [facility] [address] [facility] [id number] [place] [address]- 5981 Jun, 2014 [facility] [place] [facility] [address] [id number] [place] [address]- 4866 May, 2014 [facility] [place] [facility] [address] [id number] [place] [address]- 1590 May, 2014 [facility] [place] [facility] [address] [facility] [id number] [place] [address]- 5484 May, 2014 [facility] [place] [facility] [address] [id number] [place] [address]- 9906 May, 2014 [facility] [place] [facility] [address] [id number] [place] [address]- 7148 May, 2014 [facility] [place] [facility] [address] [id number] [place] [address]- 0472 May, 2014 [facility] [place] [facility] [address] [id number] [place] [address]- 6148 19 May, 2014 [facility] [place] [facility] [address] [facility] [id number] [place] [address]- 4710 12 May, 2014 [facility] [place] [facility] [address] [facility] [id number] [place] [address]- 9425 May, 2014 [facility] [place] [facility] [address] [id number] [place] [address]- 8816 May, 2014 [facility] [place] [facility] [address] [id number] [place] [address]- 1976 May, 2014 [facility] [place] [facility] [address] [id number] [place] [address]- 3076 May, 2014 [facility] [place] [facility] [address] [id number] [place] [address]- 0807 May, [facility] [place] [facility] [address] [id number] [place] [address]- 2759 May, [facility] [place] [facility] [address] [id number] [place] [address]- 6309 Apr, [facility] [place] [facility] [address] [id number] [place] [address]- 7218 Apr, [facility] [place] [facility] [address] [id number] [place] [address]- 6413 Apr, [facility] [place] [facility] [address] [id number] [place] [address]- 4537 Apr, [facility] [place] [facility] [address] [id number] [place] [address]- 3196 Apr, [facility] [place] [facility] [address] [id number] [place] [address]- 7019 Apr, [facility] [place] [facility] [address] [id number] [place] [address]- 3533 Apr, [facility] [place] [facility] [address] [id number] [place] [address]- 2560 Apr, [facility] [place] [facility] [address] [id number] [place] [address]- 5164 Apr, [facility] [place] [facility] [address] [id number] [place] [address]- 0721 Apr, [facility] [place] [facility] [address] [id number] [place] [address]- 3483 Apr, [facility] [place] [facility] [address] [id number] [place] [address]- 2590 Apr, [facility] [place] [facility] [address] [id number] [place] [address] Mar, [facility] [place] [facility] [address] [id number] [place] [address] Mar, [facility] [place] [facility] [address] [id number] [place] [address] 30 Mar, 2014 [facility] [place] [facility] [address] [id number] [place] [address] 30 Mar, 2014 [facility] [place] [facility] [address] [id number] [place] [address] Mar, [facility] [place] [facility] [address] [id number] [place] [address] 29 Mar, 2014 [facility] [place] [facility] [address] [id number] [place] [address] Mar, [facility] [place] [facility] [address] [id number] [place] [address] 19 Mar, 2014 [facility] [place] [facility] [address] [id number] [place] [address] 15 Mar, 2014 [facility] [place] [facility] [address] [id number] [place] [address] 15 Mar, 2014 [facility] [place] [facility] [address] [id number] [place] [address] 15 Mar, 2014 [facility] [place] [facility] [address] [id number] [place] [address] 15 Mar, 2014 [facility] [place] [facility] [address] [id number] [place] [address] 15 Mar, 2014 [facility] [place] [facility] [address] [id number] [place] [address] 15 Mar, 2014 [facility] [place] [facility] [address] [id number] [place] [address] Mar, [facility] [place] [facility] [address] [id number] [place] [address] Mar, [facility] [place] [facility] [address] [id number] [place] [address] Mar, [facility] [place] [facility] [address] [id number] [place] [address] Mar, [facility] [place] [facility] [address] [id number] [place] [address] Mar, [facility] [place] [facility] [address] [id number] [place] [address] Mar, [facility] [place] [facility] [address] [id number] [place] [address] Feb, [facility] [place] [facility] [address] [id number] [place] [address]- [address] Feb, [facility] [place] [facility] [address] [id number] [place] [address] Feb, [facility] [place] [facility] [address] [facility] [id number] [place] [address] Feb, [facility] [place] [facility] [address] [id number] [place] [address] Feb, [facility] [place] [facility] [address] [id number] [place] [address] Feb, [facility] [place] [facility] [address] [id number] [place] [address] Feb, [facility] [place] [facility] [address] [id number] [place] [address] Feb, [facility] [place] [facility] [address] [id number] [place] [address] Feb, [facility] [place] [facility] [address] [id number] [place] [address] Feb, [facility] [place] [facility] [address] [id number] [place] [address] Feb, [facility] [place] [facility] [address] [id number] [place] [address] Feb, [facility] [place] [facility] [address] [id number] [place] [address] Feb, [facility] [place] [facility] [address] [id number] [place] [address] Feb, [facility] [place] [facility] [address] [id number] [place] [address] Feb, [facility] [place] [facility] [address] [id number] [place] [address] Feb, [facility] [facility] [address] [id number] [place] [address] Feb, [facility] [place] [facility] [address] [id number] [place] [address] 48[address] Jan, [facility] [place] [facility] [address] [id number] [place] [address] 1593 Jan, [facility] [place] [facility] [address] [id number] [place] [address] 3396 Jan, [facility] [place] [facility] [address] [id number] [place] [address] 6923 Jan, [facility] [place] [facility] [address] [id number] [place] [address]- 1441 Jan, [facility] [place] [facility] [address] [id number] [place] [address]- 6327 Jan, [facility] [place] [facility] [address] [id number] [place] [address] 16 Jan, 2014 [facility] [place] [facility] [address] [id number] [place] [address]- 2546 Jan, [facility] [place] [facility] [address] [id number] [place] [address] 0[address] Jan, [facility] [place] [facility] [address] [id number] [place] [address] 6116 Jan, [facility] [place] [facility] [address] [id number] [place] [address] Jan, [facility] [place] [facility] [address] [id number] [place] [address]- 5683 Dec, [facility] [place] [facility] [address] [id number] [place] [address]- 5222 Dec, [facility] [place] [facility] [address] [id number] [place] [address]- 0424 Nov, [facility] [place] [facility] [address] [id number] [place] [address]- 5964 Nov, [facility] [place] [facility] [address] [id number] [place] [address]- 8542 Nov, [facility] [place] [facility] [address] [id number] [place] [address]- 7261 Nov, [facility] [place] [facility] [address] [id number] [place] [address]- 7875 Nov, [facility] [place] [facility] [address] [id number] [place] [address]- 7444 Nov, [facility] [place] [facility] [address] [id number] [place] [address]- 0119 Nov, [facility] [place] [facility] [address] [id number] [place] [address]- 8765 Oct, [facility] [place] [facility] [address] [id number] [place] [address]- 5222 Oct, [facility] [place] [facility] [address] [id number] [place] [address]- 5190 Oct, [facility] [place] [facility] [address] [id number] [place] [address]- 7799 Oct, [facility] [place] [facility] [address] [id number] [place] [address]- 5532 Sep, [facility] [place] [facility] [address] [id number] [place] [address]- 5423 Sep, [facility] [place] [facility] [address] [id number] [place] [address]- 6655 Sep, [facility] [place] [facility] [address] [id number] [place] [address]- 8812 Sep, [facility] [place] [facility] [address] [id number] [place] [address]- 6584 Sep, [facility] [place] [facility] [address] [id number] [place] [address]- 9504 Sep, [facility] [place] [facility] [address] [id number] [place] [address]- 6699 Sep, [facility] [place] [facility] [address] [id number] [place] [address]- 4045 Sep, [facility] [place] [facility] [address] [id number] [place] [address]- 3720 Sep, [facility] [place] [facility] [address] [id number] [place] [address]- 3157 Sep, [facility] [place] [address] [id number] [place] [address]- 3922 Sep, [facility] [address] [id number] [place] [address]- 4224 Sep, [facility] [place] [address] [id number] [place] [address]- 1633 Sep, [facility] [address] [id number] [place] [address]- 2440 Sep, [facility] [facility] [address] [id number] [place] [address]- 2954 August, [facility] [address] [id number] [place] [address]- 2455 August, [facility] [place] [address] [id number] [place] [address]- 7373 August, [facility] [address] [id number] [place] [address]- 5860 August, [facility] [address] [id number] [place] [address]- 2838 August, [facility] [address] [id number] [place] [address]- 4780 August, [facility] [place] [facility] [address] [id number] [place] [address]- 5876 August, [facility] [address] [id number] [place] [address]- 0359 August, [facility] [address] [id number] [place] [address]- 8111 August, [facility] [address] [id number] [place] [address]- 9071 August, [facility] [address] [id number] [place] [address]- 8701 August, [facility] [address] [id number] [place] [address]- 3557 August, [facility] [address] [id number] [place] [address]- 7441 August, [facility] [address] [id number] [place] [address]- 1215 August, [facility] [address] [id number] [place] August, [facility] [address] [id number] [place] [address] August, [facility] [address] [id number] [place] [address]- 1637 August, [facility] [address] [id number] [place] [address]- 8824 August, [facility] [address] [id number] [place] [address]- 1531 August, [facility] [address] [id number] [place] [address]- 7749 Jul, [facility] [address] [id number] [place] [address]- 9890 Jul, [facility] [address] [id number] [place] [address]- 0958 Jul, [facility] [address] [id number] [place] [address]- 0737 Jul, [facility] [address] [id number] [place] [address]- 2178 Jun, [facility] [address] [id number] [place] [address]- 9861 Jun, [facility] [address] [id number] [place] [address]- 9625 Jun, [facility] [address] [id number] [place] [address]- 9917 24 Jun, 2013 [facility] [address] [id number] [place] [address]- 4874 Jun, [facility] [address] [id number] [place] [address]- 8453 17 Jun, 2013 [facility] [address] [id number] [place] [address]- 4715 14 Jun, 2013 [facility] [address] [id number] [place] [address]- 7580 14 Jun, 2013 [facility] [address] [id number] [place] [address]- 8317 06 Jun, 2013 [facility] [address] [id number] [place] [address]- 2187 Jun, [facility] [address] [id number] [place] [address]- 5576 May, [facility] [address] [id number] [place] [address] 2546 May, [facility] [address] [id number] [place] [address]- 1349 May, [facility] [address] [id number] [place] [address]- 1579 May, [facility] [address] [id number] [place] [address]- 2006 May, [facility] [address] [facility] [id number] [place] [address]- 8686 May, [facility] [address] [id number] [place] [address]- 1265 May, [facility] [address] [facility] [id number] [place] [address]- 8323 May, [facility] [address] [facility] [id number] [place] [address]- 6650 May, [facility] [address] [facility] [id number] [place] [address]- 5283 May, [facility] [address] [facility] [id number] [place] [address]- 2540 May, [facility] [address] [facility] [id number] [place] [address]- 2892 17 May, 2013 [facility] [address] [id number] [place] [address]- 9915 May, [facility] [address] [facility] [id number] [place] [address]- 9306 May, [facility] [address] [facility] [id number] [place] [address]- 8018 10 May, 2013 [facility] [address] [id number] [place] [address]- 3586 07 May, 2013 [facility] [address] [id number] [place] [address] 2546 07 May, 2013 [facility] [address] [id number] [place] [address]- 1156 Apr, [facility] [address] [id number] [place] [address]- 6743 Apr, [facility] [address] [id number] [place] [address]- 2336 Apr, [facility] [address] [id number] [place] [address]- 0937 Apr, [facility] [address] [id number] [place] [address]- 3195 Apr, [facility] [address] [id number] [place] [address]- 6492 Apr, [facility] [address] [id number] [place] [address]- 1255 Apr, [facility] [address] [id number] [place] [address]- 6871 Mar, [facility] [address] [id number] [place] [address]- 9096 Mar, [facility] [address] [id number] [place] [address]- 2546 Mar, [facility] [address] [id number] [place] [address]- 3146 Mar, [facility] [address] [id number] [place] [address]- 2546 Mar, [facility] [address] [id number] [place] [address]- 7986 Mar, [facility] [address] [id number] [place] [address]- 0718 Mar, [facility] [address] [id number] [place] [address]- 3233 Mar, [facility] [address] [id number] [place] Mar, [facility] [place] [facility] [address] [id number] [place] [address]- 0708 Mar, [facility] [place] [address] [id number] [place] [address]- 2236 Mar, [facility] [facility] [address] [id number] [place] [address]- 7782 Feb, [facility] [facility] [address] [id number] [place] [address]- 6074 Feb, [facility] [address] [id number] [place] [address]- 3558 Feb, [facility] [address] [id number] [place] [address]- 1033 Feb, [facility] [address] [id number][place] [address]- 8387 Feb, [facility] [address] [id number], [place] [address]- 4715 19 Feb, 2013 [facility] [address] [id number], [place] [address]- 7976 15 Feb, 2013 [facility] [facility] [address] [id number] [place] [address]- 8817 14 Feb, 2013 [facility] [place] [facility] [address] [id number] [place] [address]- 5396 14 Feb, 2013 [facility] [address] [id number][place] [address]- 9356 13 Feb, 2013 [facility] [place] [address] [id number] [place] [address]- 7616 Feb, [facility] [place] [facility] [address] [id number] [place] [address]- 9949 Feb, [facility] [address] [id number], [place] [address]- 9188 Feb, [facility] [place] [facility] [address] [id number] [place] [address]- 7465 Feb, [facility] [place] [facility] [address] [id number] [place] [address]- 8005 Feb, [facility] [place] [facility] [address] [id number] [place] [address]- 5511 Feb, [facility] [address] [id number] [place] [address]- 6223 Jan, [facility] [place] [facility] [address] [id number] [place] [address]- 3416 Jan, [facility] [address] [id number], [place] [address]- 3587 Jan, [facility] [address] [id number] [place] [address]- 2558 Jan, [facility] [place] [facility] [address] [id number] [place] [address]- 9284 Jan, [facility] [place] [facility] [address] [id number] [place] [address]- 6911 Jan, [facility] [facility] [address] [id number], [place] [address]- 7859 Jan, [facility] [address] [id number], [place] [address]- 1585 10 Jan, 2013 [facility] [address] [id number], [place] [address]- 0676 10 Jan, 2013 [facility] [address] [id number], [place] [address]- 7781 27 Dec, 2012 [facility] [place] [facility] [address] [id number] [place] [address]- 5984 20 Dec, 2012 [facility] [place] [facility] [address] [id number] [place] [address] 2546 19 Dec, 2012 [facility] [place] [facility] [address] [id number] [place] [address] 2546 10 Dec, 2012 [facility] [place] [facility] [address] [id number] [place] [address] 2546 04 Dec, 2012 [facility] [place] [facility] [address] [id number] [place] [address] 2545 03 Dec, 2012 [facility] [place] [facility] [address] [id number] [place] [address]- 8248 Nov, [facility] [place] [facility] [address] [id number] [place] [address]- 9673 Nov, [facility] [place] [facility] [address] [id number] [place] [address]- 6846 Nov, [facility] [place] [facility] [address] [id number] [place] [address]- 8574 Nov, [facility] [place] [facility] [address] [id number] [place] [address]- 1967 Nov, [facility] [place] [facility] [address] [id number] [place] [address]- 2540 Nov, [facility] [place] [facility] [address] [id number] [place] [address]- 2542 Nov, [facility] [place] [facility] [address] [id number] [place] [address] 2543 Nov, [facility] [place] [facility] [address] [id number] [place] [address] 2544 14 Nov, 2012 [facility] [place] [facility] [address] [id number] [place] [address]- 2549 07 Nov, 2012 [facility] [place] [facility] [address] [id number] [place] [address]- 6904 Oct, [facility] [place] [facility] [address] [id number] [place] [address]- 5896 Oct, 2012 [facility] [place] [facility] [address] [id number] [place] [address]- 8396 Oct, [facility] [place] [facility] [address] [id number] [place] [address]- 6708 Oct, 2012 [facility] [place] [facility] [address] [id number] [place] [address]- 8805 Oct, 2012 [facility] [place] [facility] [address] [id number] [place] [address]- 6611 Oct, [facility] [place] [facility] [address] [id number] [place] [address]- 1156 Oct, [facility] [place] [facility] [address] [id number] [place] [address]- 4397 Oct, [facility] [place] [facility] [address] [id number] [place] [address]- 5663 Sep, [facility] [place] [facility] [address] [id number] [place] [address]- 4733 Sep, [facility] [place] [facility] [address] [id number] [place] [address]- 3564 Sep, [facility] [place] [facility] [address] [id number], [place] [address]- 4949 Sep, [facility] [place] [facility] [address] [id number], [place] [address]- 0286 Sep, [facility] [place] [facility] [address] [id number] [place] [address]- 2380 Sep, [facility] [place] [facility] [address] [id number], [place] [address]- 4332 Sep, [facility] [place] [facility] [address] [id number] [place] [address]- 9432 Sep, [facility] [place] [facility] [address] [id number] [place] [address]- 4050 August, [facility] [address] [id number] [place] [address]- 4174 August, [facility] [address] [id number] [place] [address]25 August, [facility] [address] [id number] [place] [address]- 2804 August, [facility] [address] [id number] [place] [address]- 8930 August, [facility] [address] [id number] [place] [address]28 Jul, [facility] [address] [id number] [place] [address]- 3891 Jul, [facility] [address] [id number] [place] [address]- 1571 Jul, [facility] [address] [id number] [place] [address]- 7581 Jul, [facility] [address] [id number] [place] [address]- 0567 Jul, [facility] [address] [id number] [place] [address]- 6665 Jun, [facility] [address] [id number] [place] [address]- 3208 18 Jun, 2012 [facility] [address] [id number] [place] [address]- 6467 15 Jun, 2012 [facility] [address] [id number] [place] [address]- 2895 14 Jun, 2012 [facility] [address] [id number] [place] [address]- 3035 12 Jun, 2012 [facility] [address] [id number] [place] [address]- 1307 08 Jun, 2012 [facility] [address] [id number] [place] [address]- 4271 08 Jun, 2012 [facility] [address] [id number] [place] [address]- 6951 Jun, [facility] [address] [id number] [place] [address]- 2216 Jun, [facility] [address] [id number] [place] [address]- 7452 May, [facility] [address] [id number] [place] [address]- 1252 May, [facility] [address] [id number] [place] [address]- 7956 May, [facility] [address] [id number] [place] [address]- 2126 May, [facility] [address] [id number] [place] [address]- 7009 Apr, [facility] [address] [id number] [place] [address]- 7970 Apr, [facility] [address] [id number] [place] [address]- 9439 Apr, [facility] [address] [id number] [place] [address]- 7594 Apr, [facility] [address] [id number], [place] [address] Apr, [facility] [address] [id number] [place] [address] Apr, [facility] [address] [id number] [place] [address] Apr, [facility] [address] [id number] [place] [address] Mar, [facility] [address] [place] [id number] Mar, [facility] [address] [id number] [place] [address] Mar, [facility] [place] [facility] [address] [id number] [place] [address] 1986 Mar, [facility] [address] [id number] [place] [address] Mar, [facility] [place] [facility] [address] [id number] [place] [address] Mar, [facility] [address] [id number] [place] [address] Mar, [facility] [address] [id number] [place] [address] Mar, [facility] [address] [id number] [place] [address] Mar, [facility] [place] [facility] [address] [id number] [place] [address] Mar, [facility] [address] [id number] [place] [address] Mar, [facility] [place] [facility] [address] [id number] [place] [address] Mar, [facility] [place] [facility] [address] [id number] [place] [address] Mar, [facility] [place] [facility] [address] [id number], [place] [address] Mar, [facility] [place] [facility] [address] [id number] [place] [address] Mar, [facility] [place] [facility] [address] [id number] [place] [address] Mar, [facility] [place] [facility] [address] [id number] [place] [address] Mar, [facility] [place] [facility] [address] [id number] [place] [address] Feb, [facility] [address] [id number] [place] [address] Feb, [facility] [place] [facility] [address] [id number] [place] [address] Feb, [facility] [place] [facility] [address] [id number] [place] [address] Feb, [facility] [place] [facility] [address] [id number] [place] [address] Feb, [facility] [place] [facility] [address] [id number] [place] [address] Feb, [facility] [place] [facility] [address] [id number] [place] [address] Feb, [facility] [address] [id number] [place] [address] Feb, [facility] [address] [id number] [place] [address] Feb, [facility] [place] [facility] [address] [id number] [place] [address] Feb, [facility] [address] [id number] [place] [address] Feb, [facility] [place] [facility] [address] [id number] [place] [address] Feb, [facility] [place] [facility] [address] [id number] [place] [address] 1186 Feb, [facility] [place] [facility] [address] [id number] [place] [address] Feb, [facility] [place] [facility] [address] [id number] [place] [address] Feb, [facility] [place] [facility] [address] [id number] [place] [address] Feb, [facility] [place] [facility] [address] [id number] [place] [address] Jan, [facility] [place] [facility] [address] [id number] [place] [address] Jan, [facility] [place] [facility] [address] [id number] [place] [address] Jan, [facility] [place] [facility] [address] [id number] [place] [address] Jan, [facility] [place] [facility] [address] [id number] [place] [address] 49[address] Jan, [facility] [place] [facility] [address] [id number] [place] [address] Jan, [facility] [place] [facility] [address] [id number] [place] [address] 35[address] Jan, [facility] [place] [facility] [address] [id number], [place] [address] Jan, [facility] [place] [facility] [address] [id number] [place] [address] Jan, [facility] [place] [facility] [address] [id number], [place] [address] Jan, [facility] [place] [facility] [address] [facility] [id number], [place] [address] Jan, [facility] [place] [facility] [address] [id number], [place] [address] Jan, [facility] [place] [facility] [address] [id number], [place] [address] Jan, [facility] [place] [facility] [address] [id number], [place] [address] Jan, [facility] [place] [facility] [address] [id number] [address] Jan, [facility] [place] [facility] [address] [id number], [place] [address] 05 Jan, 2012 [facility] [place] [facility] [address] [id number] [place] [address]- [address] 04 Jan, 2012 [facility] [place] [facility] [address] [id number] [place] [address]46 21 Dec, 2011 [facility] [place] [facility] [address] [id number] [place] [address] 20 Dec, 2011 [facility] [place] [facility] [address] [id number] [place] [address] 2546 18 Dec, 2011 [facility] [place] [facility] [address] [id number] [place] [address] 18 Dec, 2011 [facility] [place] [facility] [address] [id number] [place] [address] 10 Dec, 2011 [facility] [place] [facility] [address] [id number] [place] [address] 10 Dec, 2011 [facility] [place] [facility] [address] [id number] [place] [address] 10 Dec, 2011 [facility] [place] [facility] [address] [id number] [place] [address]- [address] 07 Dec, 2011 [facility] [place] [facility] [address] [id number] [place] [address]- [address] 30 Nov, 2011 [facility] [place] [facility] [address] [id number] [place] [address]- [address] 25 Nov, 2011 [facility] [place] [facility] [address] [id number] [place] [address]- [address]47 24 Nov, 2011 [facility] [place] [facility] [address] [id number] [place] [address] 14[address] Nov, [facility] [place] [facility] [address] [id number] [place] [address]- [address] Nov, [facility] [place] [facility] [address] [id number] [place] [address] 16 Nov, 2011 [facility] [place] [facility] [address] [id number] [place] [address] 30 Oct, 2011 [facility] [place] [facility] [address] [id number] [place] [address]326 30 Oct, 2011 [facility] [place] [facility] [address] [id number] [place] [address]- 2546 Oct, [facility] [place] [facility] [address] [id number] [place] [address] Oct, [facility] [place] [facility] [address] [id number] [place] [address] Oct, [facility] [place] [facility] [address] [address] [id number] [place] [address] Oct, [facility] [place] [facility] [address] [id number] [place] [address] Oct, [facility] [place] [facility] [address] [id number] [place] [address] Sep, [facility] [place] [facility] [address] [id number] [place] [address] Sep, [facility] [place] [facility] [address] [id number] [place] [address] Sep, [facility] [place] [facility] [address] [id number] [place] [address] Sep, [facility] [place] [facility] [address] [id number] [place] [address] 19 Sep, 2011 [facility] [place] [facility] [address] [id number] [place] [address] 15 Sep, 2011 [facility] [place] [facility] [address] [id number] [place] [address] 14 Sep, 2011 [facility] [place] [facility] [address] [id number] [place] [address] 11 Sep, 2011 [facility] [place] [facility] [address] [id number] [place] [address] Sep, [facility] [address] [id number] [place] [address] Sep, [facility] [place] [facility] [address] [id number] [place] [address] August, [facility] [place] [facility] [address] [id number] [place] [address] August, [facility] [place] [facility] [address] [id number] [place] [address] August, [facility] [address] [id number] [place] [address] August, [facility] [place] [facility] [address] [id number] [place] [address] August, [facility] [place] [facility] [address] [id number] [place] [address] Jul, [facility] [place] [facility] [address] [id number] [place] [address] Jul, [facility] [place] [facility] [address] [id number] [place] [address] Jul, [facility] [place] [facility] [address] [id number] [place] [address] Jul, [facility] [place] [facility] [address] [id number] [place] [address]- [address] Jul, [facility] [place] [facility] [address] [id number] [place] [address] Jul, [facility] [place] [facility] [address] [id number] [place] [address] Jul, [facility] [place] [facility] [address] [id number] [place] [address] Jun, [facility] [place] [facility] [address] [id number] [place] [address]- [address] Jun, [facility] [place] [facility] [address] [id number] [place] [address] Jun, [facility] [place] [facility] [address] [id number] [place] [address] Jun, [facility] [place] [facility] [address] [id number] [place] [address] Jun, [facility] [place] [facility] [address] [id number] [place] [address] May, [facility] [place] [facility] [address] [id number] [place] [address] May, [facility] [place] [facility] [address] [id number] [place] [address], [place] [address]- [address] May, [facility] [place] [facility] [address] [id number] [place] [address] May, [facility] [place] [facility] [id number] [place] [address], [place] [address]- [address] May, [facility] [place] [facility] [address] [id number] [place] [address] May, [facility] [place] [facility] [id number] [place] [address] Apr, [facility] [place] [facility] [address] [id number] [place] [address]- [address] Mar, [facility] [place] [facility] [address] [id number] [place] [address] 25[address] Feb, [facility] [place] [facility] [address] [id number] [place] [address] 25[address] Feb, [facility] [place] [facility] [address] [facility] [id number] [place] [address] Feb, [facility] [place] [facility] [address] [facility] [id number] [place] [address] Feb, [facility] [place] [facility] [address] [facility] [id number] [place] [address] Jan, [facility] [place] [facility] [address] [id number] [place] [address]- [address]14 27 Jan, 2011 [facility] [place] [facility] [address] [id number] [place] [address]- 9823 26 Jan, 2011 [facility] [place] [facility] [address] [id number] [place] [address]- [address]26 24 Jan, 2011 [facility] [place] [facility] [address] [id number] [place] [address]- [address] 14 Jan, 2011 [facility] [place] [facility] [address] [id number] [place] [address] Dec, [facility] [place] [facility] [address] [id number] [place] [address] 2714 Oct, [facility] [place] [facility] [address] [id number] [place] [address]- 6954 August, [facility] [place] [facility] [address] [id number] [place] [address] 29 Mar, 2010 [facility] [place] [facility] [address] [id number] [place] [address]- 2493 27 Mar, 2010 [facility] [place] [facility] [address] [id number], [place] [address] 16 Mar, 2010 [facility] [place] [facility] [address] [id number], [place] [address] 15 Mar, 2010 [facility] [place] [facility] [address] [id number], [place] [address]- [address]84 15 Mar, 2010 [facility] [place] [facility] [address] [id number] [place] [address]- 9471 08 Mar, 2010 [facility] [place] [facility] [address] [id number], [place] [address]- [address] 03 Mar, 2010 [facility] [place] [facility] [address] [id number], [place] [address] 24 Feb, 2010 [facility] [place] [facility] [address] [id number], [place] [address] 24 Feb, 2010 [facility] [place] [facility] [address] [id number] [place] [address] 4180 15 Feb, 2010 [facility] [place] [facility] [address] [facility] [id number], [place] [address] Jan, [facility] [place] [facility] [address] [facility] [id number] [place] [address] 18 Jan, 2010 [facility] [place] [facility] [address] [facility] [id number], [place] [address]- 9515 18 Jan, 2010 [facility] [place] [facility] [address] [facility] [id number] [place] [address], [place] [address] Nov, [facility] [place] [facility] [address] [facility] [id number], [place] [address] Sep, [facility] [place] [facility] [id number] [place] [address] August, [facility] [place] [facility] [address] [facility] [id number], [place] [address] 30 Mar, 2009 [facility] [place] [facility] [address] [id number], [place] [address] 7766 07 Mar, 2009 [facility] [place] [facility] [address] [id number], [place] [address]- 2429 17 Feb, 2009 [facility] [place] [facility] [address] [facility] [id number], [place] [address]- 7875 10 Feb, 2009 [facility] [place] [facility] [address] [facility] [id number], [place] [address]- 2346 10 Feb, 2009 [facility] [place] [facility] [address] [facility] [id number], [place] [address]- 5745 10 Feb, 2009 [facility] [place] [facility] [address] [facility] [id number], [place] [address]- [address] 06 Feb, 2009 [facility] [place] [facility] [address] [id number], [place] [address]- 8179 27 Jan, 2009 [facility] [place] [facility] [address] [id number], [place] [address]- [address] Jan, [facility] [id number], [place] [address] Jan, [facility] [id number], [place] [address] Jan, [facility] [id number], [place] [address]- [address] Nov, [facility] [id number], [place] [address]- [address] Sep, [facility] [id number] [place] [address] August, [facility] [id number], [place] [address]- [address] Jul, [facility] [address]65[address], [place] [address]- 6280 May, IMMUNIZATIONS No Known Immunizations SOCIAL HISTORY [...] Knee Surgery 07/16/17 Hospitalization History [facility]- left hand/wrist swelling 10/09/2017
--- OUTSIDE RECORDS SUMMARY | 2018-01-01 11:44 | XMS REPORT ---
Author Author SENAIT DUNLAP [facility] Address [address] [place] [address] Care Team Providers Care Workcell Operator Name Role Phone SENAIT DNULAP Unavailable PROBLEMS Type Condition ICD9-CM Code JBI56-MR Code Onset Dates Condition Status SNOMED Code Problem History of common bile duct surgery Z98.89 Active 193616570 Problem Barretts esophagus K22.70 Active 875534889 Problem 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 Active 86561651 Problem Colon polyp K63.5 Active 26538403 Problem Bilateral low back pain without sciatica M54.5 Active 472696328 Problem Screening breast examination Z12.39 Active 002055821 Problem Postmenopausal Z78.0 Active 97357972 Problem Osteopenia M85.80 Active 600825607 Problem Cigarette nicotine dependence without complication F17.210 Active 02789019 Problem Type 2 diabetes mellitus with diabetic peripheral angiopathy without gangrene E11.51 Active 502252878 Problem Vascular dementia without behavioral disturbance F01.50 Active [id number] Problem Unspecified atherosclerosis of [place] arteries of extremities, unspecified extremity I70.209 Active 454871863279480 Problem Arthritis M19.90 Active 0263419 Problem Chronic atrial fibrillation I48.2 Active 805225796 Problem Chronic obstructive pulmonary disease with acute lower respiratory infection J44.0 Active 515659904 Problem Other chronic pancreatitis K86.1 Active 332492342 Problem Stress incontinence of urine N39.3 Active 83915166 Problem Controlled type 2 diabetes mellitus without complication, without long -term current use of insulin E11.9 Active 007287670 Problem Unspecified psychosis F29 Active 60527887 Problem Xeroderma Q80.9 Active 64183814 Problem COPD (chronic obstructive pulmonary disease) J44.9 Active 44740794 Problem Dementia without behavioral disturbance, unspecified dementia type F03.90 Active 21734199 Problem Gastroparesis K31.84 Active 294858928 Problem Type 2 diabetes mellitus with diabetic neuropathy, without long-term current use of insulin E11.40 Active 72903470 Problem Osteoporosis M81.0 Active 94207341 Problem Atherosclerosis of [place] artery of both lower extremities with intermittent claudication I70.213 Active 092761178011851 Problem Hyperlipidemia E78.5 Active 59215028 Problem Diabetic polyneuropathy associated with type 2 diabetes mellitus E11.42 Active 53865332 Problem Essential tremor G25.0 Active 84004329 Problem 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.118 Active 9497163348086 Problem Generalized anxiety disorder F41.1 Active 754293228 Problem Gastroesophageal reflux disease, esophagitis presence not specified K21.9 Active 506483199 Problem Coronary artery disease involving [place] coronary artery of [place] 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 I25.118 Active 0809624170145 Problem Postconcussion syndrome F07.81 Active 14867531 Problem Chronic pain syndrome G89.4 Active 297342265 Problem Migraine without aura and without status migrainosus, not intractable G43.009 Active 476442013 Problem Paroxysmal atrial fibrillation I48.0 Active 943976445 Problem Migraine without aura and with status migrainosus, not intractable G43.001 Active 399690969 Problem Cervicalgia M54.2 Active 6326923603192 Problem Acute exacerbation of chronic obstructive pulmonary disease (COPD) J44.1 Active 714027770 Problem Major depressive disorder, recurrent episode, moderate F33.1 Active 927874068 Problem Crohn''s disease without complication, unspecified gastrointestinal tract location K50.90 Active 51967720 Problem Chronic fatigue R53.82 Active 78524143 Problem Bipolar affective disorder, currently depressed, moderate F31.32 Active 999933756 ALLERGIES No Information ENCOUNTERS Encounter Location Date Diagnosis [place] [address], [place] [address] Nov, [place] [address], [place] [address] Nov, [place] [address], [place] [address] Nov, Bronchitis J40 [place] [address], [place] [address] Oct, [place] [address], [place] [address] 2018 Oct, Bipolar affective disorder, currently depressed, moderate F31.32 ; Vascular dementia without behavioral disturbance F01.50 and Generalized anxiety disorder F41.1 [facility] [place] [address], [place] [address] Oct, [facility] [place] [address] [place] [id number] [place] [address] 31915- 7024 Oct, [facility] [place] [address] [place] [id number] [place] [address] 91051- 2597 Oct, Edema of both legs R60.0 [facility] [place] [address] [place] [id number] [place] [address] 82928- 4703 Oct, [facility] [place] [address] [place] [id number] [place] [address] 26063- 4983 Sep, [facility] [place] [address] [place] [id number] [place] [address] 02061- 6645 Sep, [facility] [place] [address] [place] [address] [id number] [place] [address] 45491- 7003 Sep, [facility] [place] [address] [place] [id number] [place] [address] 24006- 3174 Sep, Encounter for well woman exam with routine gynecological exam Z01.419 ; Screening for STDs (sexually transmitted diseases) Z11.3 ; Screening breast examination Z12.31 and Overweight (BMI 25.0-29.9) E66.3 [facility] [place] [address], [place] [address] Sep, [facility] [place] [address] [place] [id number] [place] [address] 27703- 9573 Sep, [facility] [place] [address], [place] [address] Sep, [facility] [place] [address] [place] [address] 81283- 4186 August, [facility] [place] [address], [place] [address] August, [facility] [place] [address] [place] [id number] [place] [address] 30048- 9556 August, Type 2 diabetes mellitus with diabetic neuropathy, without long-term current use of insulin E11.40 and Sprain of right ankle, unspecified ligament, initial encounter S93.401A [facility] [place] [address] [place] [id number] [place] [address] 02520- 8958 August, [facility] [place] [address] [place] [address] 47263- 8466 August, [facility] [place] [address] [place] [id number] [place] [address] 06232- 8222 August, [facility] [place] [address] [place] [address] [id number] [place] [address] 65398- 6933 August, Gastroesophageal reflux disease, esophagitis presence not specified K21.9 [facility] [place] [address] [place] [id number] [place] [address] 15446- 9305 August, [facility] [place] [address] [place] [address] [id number] [place] [address] 80408- 6560 August, [facility] [place] [address], [place] [address] 7262 August, [facility] [place] [address] [place] [address] 96784- 7801 August, Type 2 diabetes mellitus with diabetic neuropathy, without long-term current use of insulin E11.40 and Elevated liver enzymes R74.8 [facility] [place] [address], [place] [address] Jul, [facility] [place] [address] [place] [id number] [place] [address] 32777- 8712 Jul, Cough R05 [facility] [place] [address] [place] [address] 26431- 0330 Jul, [facility] [place] [address] [place] [id number] [place] [address] 19386- 5987 Jul, [facility] [place] [address] [address]- 9997 Jul, Bipolar affective disorder, currently depressed, moderate F31.32 ; Vascular dementia without behavioral disturbance F01.50 and Generalized anxiety disorder F41.1 [facility] [place] [address] 79882- 0267 Jul, [facility] [place] [address] 59805- 3386 Jul, Type 2 diabetes mellitus with diabetic neuropathy, without long-term current use of insulin E11.40 and Elevated liver enzymes R74.8 [facility] [place] [address] [place] [id number] [place] [address] 45415- 6263 Jul, [facility] [place] [address] 58010- 3903 Jul, [facility] [place] [address] [place] [id number] [place] [address] 64946- 3668 Jul, [facility] [place] [address] 91641- 1892 Jul, Post-menopausal Z78.0 [facility] [place] [address] [place] [id number] [place] [address] 72347- 7748 Jul, Stress incontinence of urine N39.3 [facility] [place] [address] [place] [address] [id number] [place] [address] 73619- 4326 Jul, [facility] [place] [address] [place] [address] [id number] [place] [address] 22806- 9130 Jul, [facility] [place] [address] [place] [id number] [place] [address] 32748- 6846 Jul, Stress incontinence of urine N39.3 and Cough R05 [facility] [place] [address] [place] [id number] [place] [address] 72709- 8551 Jul, [facility] [place] [address], [place] [address]- 8137 Jul, [facility] [place] [address] [place] [id number] [place] [address] 91298- 3109 Jul, [facility] [place] [address] [place] [id number] [place] [address] 90261- 5787 Jul, Gastroesophageal reflux disease, esophagitis presence not specified K21.9 [facility] [place] [address] [place] [id number] [place] [address] 71331- 8190 Jun, Diabetic polyneuropathy associated with type 2 diabetes mellitus E11.42 [place] [address] [place] [id number] [place] [address] Jun, Diabetic polyneuropathy associated with type 2 diabetes mellitus E11.42 ; Coronary artery disease involving [place] coronary artery of [place] 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 I25.118 and Paroxysmal atrial fibrillation I48.0 [facility] [place] [address] [place] [id number] [place] [address] 81637- 2329 Jun, [facility] [place] [address] [place] [id number] [place] [address] 58373- 4741 Jun, [facility] [place] [address] [place] [id number] [place] [address] 76308 2544 Jun, Gastroenteritis K52.9 [facility] [place] [address] [place] [id number] [place] [address] 08082 254 Jun, Gastroenteritis K52.9 [facility] [place] [address] [place] [id number] [place] [address] 37083 2540 Jun, [facility] [place] [address] [place] [address] 83140- 1745 Jun, [facility] [place] [address] [place] [id number] [place] [address] 68892- 6491 Jun, Sprain of right ankle, unspecified ligament, initial encounter S93.401A ; Type 2 diabetes mellitus with diabetic neuropathy, without long-term current use of insulin E11.40 ; Atherosclerosis of [place] artery of both lower extremities with intermittent claudication I70.213 ; 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.118 ; Chronic atrial fibrillation I48.2 and Crohn''s disease without complication, unspecified gastrointestinal tract location K50.90 [facility] [address], [place] [address] 17 Jun, 2017 Cough R05 and Chronic obstructive pulmonary disease with acute lower respiratory infection J44.0 [facility] [place] [address] [place] [id number] [place] [address] 53447- 7869 Jun, [place] [address] [place] [id number] [place] [address] 67539- 9164 Jun, Coughing R05 ; Unspecified atherosclerosis of [place] arteries of extremities, unspecified extremity I70.209 ; Type 2 diabetes mellitus with diabetic peripheral angiopathy without gangrene E11.51 ; Crohn''s disease without complication, unspecified gastrointestinal tract location K50.90 ; Other chronic pancreatitis K86.1 and Chronic atrial fibrillation I48.2 [facility] [address] [place] [address] 01708 -7658 Jun, [place] [address] [place] [id number] [place] [address] 70679- 3928 Jun, Bipolar affective disorder, currently depressed, moderate F31.32 ; Vascular dementia without behavioral disturbance F01.50 and Generalized anxiety disorder F41.1 [place] [address] [place] [id number] [place] [address] 82518- 6324 May, Generalized anxiety disorder F41.1 [place] [address] [place] [address] 01804- 3249 May, [place] [address] [place] [id number] [place] [address] 87846- 4672 May, [place] [address] [place] [id number] [place] [address] 87807- 5384 15 May, 2017 Coughing R05 [place] [address] [place] [id number] [place] [address] 69674- 6839 May, [place] [address] [place] [address] 76357- 4359 May, Bipolar affective disorder, currently depressed, moderate F31.32 ; Vascular dementia without behavioral disturbance F01.50 and Generalized anxiety disorder F41.1 [place] [address] [place] [id number] [place] [address] 21688- 6460 Apr, Generalized anxiety disorder F41.1 [place] [address] [place] [id number] [place] [address] 92655- 6615 Apr, [place] [address] [place] [id number] [place] [address] 65089- 2421 Apr, Vascular dementia without behavioral disturbance F01.50 ; Generalized anxiety disorder F41.1 and Bipolar affective disorder, currently depressed, moderate F31.32 [place] [address] [place] [id number] [place] [address] 97800- 6875 Apr, Generalized anxiety disorder F41.1 [facility] [address] [place] [id number] [place] [address] 09722 -6512 Apr, Cough R05 and Acute exacerbation of chronic obstructive pulmonary disease (COPD) J44.1 [place] [address] [place] [id number] [place] [address] 75399- 1072 Apr, [facility] [address] [place] [address] 86969 -1985 Mar, Cough R05 and Cigarette nicotine dependence without complication F17.210 [place] [address] [place] [id number] [place] [address] 22565- 3831 Mar, [place] [address] [place] [id number] [place] [address] 45547- 4891 Feb, Generalized anxiety disorder F41.1 ; Major depressive disorder, recurrent episode, moderate F33.1 ; Vascular dementia without behavioral disturbance F01.50 and Unspecified psychosis F29 [place] [address] [place] [id number] [place] [address] 05353- 6879 Feb, [place] [address] [place] [address] 24372- 9836 Feb, [place] [address] [place] [id number] [place] [address] 73085- 7680 Feb, Generalized anxiety disorder F41.1 [place] [address] [place] [id number] [place] [address] 25036- 8071 Feb, Generalized anxiety disorder F41.1 [place] [address] [place] [id number] [place] [address] 63116- 1845 Feb, Dizziness R42 ; Chronic fatigue R53.82 ; Postconcussion syndrome F07.81 ; Fall, initial encounter W19.XXXA and Disorientation R41.0 [place] [address] [place] [id number] [place] [address] 05638- 6006 Feb, Postconcussion syndrome F07.81 ; Injury of head, initial encounter S09.90XA ; Fall, initial encounter W19.XXXA ; Disorientation R41.0 and Acute cystitis with hematuria N30.01 [place] [address] [place] [id number] [place] [address] 24993- 0117 Jan, Gastroesophageal reflux disease, esophagitis presence not specified K21.9 ; Post-menopausal Z78.0 and Migraine without aura and without status migrainosus, not intractable G43.009 [place] [address] [place] [id number] [place] [address] 54729- 1435 Jan, [place] [address] [place] [id number] [place] [address] 29056- 7831 Jan, Generalized anxiety disorder F41.1 ; Major depressive disorder, recurrent episode, moderate F33.1 ; Vascular dementia without behavioral disturbance F01.50 and Unspecified psychosis F29 [place] [address] [place] [address] 97905- 1828 Jan, Pneumonia of left lower lobe due to infectious organism J18.1 [place] [address] [place] [address]- 0[address] 05 Jan, 2017 Migraine without aura and with status migrainosus, not intractable G43.001 [facility] [address] [place] [id number] [place] [address] 39520 -7386 Jan, Migraine without aura and without status migrainosus, not intractable G43.009 [facility] [place] [address] [place] [id number] [place] [address] 72429- 6302 Dec, Hematoma T14.8 [facility] [place] [address] [place] [id number] [place] [address] 30112- 0073 Dec, [facility] [address] [place] [id number] [place] [address] 79308 -5998 Nov, Fatigue, unspecified type R53.83 [place] [address] [place] [id number] [place] [address] 10189- 7068 Nov, Scabies B86 and Coronary artery disease involving [place] coronary artery of [place] 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 I25.118 [place] [address] [place] [id number] [place] [address] 14195- 3787 Nov, [place] [address] [place] [id number] [place] [address] 80065- 3346 Nov, [place] [address] [place] [id number] [place] [address] 65921- 7892 Oct, [facility] [place] [address] [place] [id number] [place] [address] 25548- 9252 Oct, Generalized anxiety disorder F41.1 and Major depressive disorder, recurrent episode, moderate F33.1 [facility] [place] [address] 91582- 2089 Oct, Cramp of both lower extremities R25.2 [facility] [place] [address] [place] [id number] [place] [address] 29274- 6921 Oct, Leg cramps R25.2 [place] [address] [place] [address]- 2845 Oct, Chronic pain syndrome G89.4 [facility] [place] [address] [place] [id number] [place] [address] 06871- 7760 17 Oct, 2016 [facility] [place] [address] [place] [id number] [place] [address] 83062- 4569 Oct, [facility] [place] [address] [place] [id number] [place] [address] 68329- 5299 Oct, Routine gynecological examination Z01.419 and Screening for breast cancer Z12.31 [facility] [place] [address] [place] [id number] [place] [address] 17510- 4950 28 Sep, 2016 Diarrhea R19.7 [facility] [place] [address] [place] [id number] [place] [address] 71355- 8078 Sep, Back pain M54.9 [place] [address] [place] [id number] [place] [address] 92250- 7604 Sep, [facility] [place] [address] [id number] [place] [address] 90185- 8496 Sep, [facility] [address] [id number] [place] [address] 60896 -8799 August, Xeroderma Q80.9 [facility] [place] [address] [place] [id number] [place] [address] 86742- 2385 August, Dementia without behavioral disturbance, unspecified dementia type F03.90 [facility] [place] [id number] [place] [address] 38893- 1705 August, Chronic pain syndrome G89.4 [facility] [place] [address] [place] [id number] [place] [address] 12746- 8787 August, [facility] [place] [address] [id number] [place] [address] 97511- 0764 August, Hyperlipidemia E78.5 ; Other fatigue R53.83 and Other specified hypotension I95.89 [facility] [address] [address] [address] -2772 August, Dysuria R30.0 ; Other fatigue R53.83 and Other specified hypotension I95.89 [place] [address] 40197- 1681 August, [place] [address] 79343- 0116 Jul, Pain in left knee M25.562 and Gastroenteritis K52.9 [place] [address] 56831- 1543 Jul, [place] [address] 21855- 8553 Jul, Diarrhea R19.7 [facility] [address] 50961 -4987 Jul, Spider bite, accidental or unintentional, initial encounter T63.301A [place] [address] 05932- 6513 Jul, Primary osteoarthritis of right knee M17.11 and Arthritis M19.90 [place] [address] 61896- 1885 Jul, Generalized anxiety disorder F41.1 and Major depressive disorder, recurrent episode, moderate F33.1 [place] [address] 03193- 4107 Jul, Type 2 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 and Temporal headache R51 [place] [address] 65041- 0344 Jul, Back pain M54.9 [place] [address] 16500- 4561 Jul, [place] [address] 63762- 5661 Jul, [place] [address] 42271- 1761 Jun, Nausea R11.0 [facility] [id number] [place] [address] 97684 -2496 Jun, Acute suppurative otitis media of both ears without spontaneous rupture of tympanic membranes, recurrence not specified H66.003 and COPD exacerbation J44.1 [place] [address] [address] [address] Jun, Generalized anxiety disorder F41.1 [facility] [place] [address] 57425- 7511 16 Jun, 2016 [facility] [address] 92347 -1047 Jun, [facility] [address] 55853 -6822 Jun, Shortness of breath R06.02 and COPD exacerbation J44.1 [place] [address] 26470- 9931 10 Jun, 2016 Eczema, unspecified type L30.9 [place] [address] 62462- 8953 Jun, [place] [address] 72698- 5027 May, [place] [address] 62148- 9215 May, Muscle cramping R25.2 [place] [address] 22071- 6603 May, [facility] [place] [address] 64409- 3578 Apr, Diarrhea R19.7 [facility] [place] [address] 62244- 8770 Apr, [place] [address] 17766- 6698 Apr, Chronic pain syndrome G89.4 [place] [address] 56772- 0896 16 Apr, 2016 Cramp of both lower extremities R25.2 and Vascular dementia without behavioral disturbance F01.50 [place] [address] 21145- 2550 Apr, Type 2 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 and Cigarette nicotine dependence without complication F17.210 [place] [address] 46898- 1281 Mar, Generalized anxiety disorder F41.1 [place] [address] 87184- 7255 Feb, Generalized anxiety disorder F41.1 and Major depressive disorder, recurrent episode, moderate F33.1 [place] [address] 03109- 3693 Feb, [facility] [address] 01341 -1123 05 Feb, 2016 Dysuria R30.0 and Acute cystitis with hematuria N30.01 [place] [address] 14815- 3727 31 Jan, 2016 [place] [address] 25447- 0102 Jan, [place] [address] 82874- 2467 Jan, [place] [address] 54722- 8420 11 Jan, 2016 [facility] [address] 79474 -1942 10 Jan, 2016 Wasp sting, accidental or unintentional, initial encounter T63.461A [place] [address] 11916- 3384 Jan, Encounter for immunization Z23 [facility] [place] [id number] [place] [address] 28484- 8492 Jan, [facility] [place] [address] [id number] [place] [address] 39927- 0652 Jan, [facility] [place] [id number] [place] [address] 78284- 4484 28 Dec, 2015 Generalized anxiety disorder F41.1 and Major depressive disorder, recurrent episode, moderate F33.1 [place] [address] [place] [id number] [place] [address] 27572- 2709 21 Dec, 2015 Routine gynecological examination Z01.419 ; Postmenopausal Z78.0 ; Screening breast examination Z12.39 ; Osteopenia M85.80 and Breast cancer screening Z12.39 [place] [address] [place] [id number] [place] [address] 86091- 7928 20 Dec, 2015 [place] [id number] [place] [address] 41531- 1523 19 Dec, 2015 [facility] [place] [id number] [place] [address] 58621- 0581 16 Dec, 2015 [place] [id number] [place] [address] 39487- 9933 16 Dec, 2015 [facility] [place] [id number] [place] [address] 36306- 3628 14 Dec, 2015 [facility] [place] [id number] [place] [address] 84843- 1003 06 Dec, 2015 [facility] [place] [id number] [place] [address] 65420- 5875 Nov, [facility] [id number] [place] [address] 20935 -1470 Nov, Cough R05 ; Other viral agents as the cause of diseases classified elsewhere B97.89 and Acute upper respiratory infection, unspecified J06.9 [place] [address] [place] [address]- 3692 Nov, [facility] [place] [address], [place] [address] 1113 Nov, [facility] [place] [address], [place] [address]- 5482 Nov, [facility] [place] [address], [place] [address] 1861 Nov, [facility] [place] [address], [place] [address]- 6250 Nov, [facility] [place] [address], [place] [address]- 4139 Oct, [facility] [place] [address], [place] [address]- 4378 Oct, [facility] [place] [address], [place] [address]- 8744 Oct, [facility] [place] [address], [place] [address]- 3258 Oct, Chronic pain syndrome G89.4 [facility] [place] [address], [place] [address]- 8122 Sep, Generalized anxiety disorder F41.1 and Major depressive disorder, recurrent episode, moderate F33.1 [facility] [place] [address], [place] [address]- 4301 Sep, [facility] [place] [address], [place] [address]- 1485 Sep, [facility] [place] [address], [place] [address]- 1593 14 Sep, 2015 Generalized anxiety disorder F41.1 [facility] [place] [address], [place] [address]- 6856 13 Sep, 2015 Cramp of both lower extremities R25.2 and Cervicalgia M54.2 [facility] [place] [id number] [place] [address] 51105- 1646 Sep, Generalized anxiety disorder F41.1 [facility] [place] [id number] [place] [address] 98973- 9044 Sep, [facility] [id number] [place] [address] 60395 -5596 August, Rash R21 ; Itching L29.9 and Allergic response, subsequent encounter T78.40XD [facility] [place] [address] 35485- 9617 August, Primary insomnia F51.01 [facility] [id number] [place] [address] 03633 -2999 August, Rash R21 ; Itching L29.9 and Allergic response, initial encounter T78.40XA [place] [id number] [place] [address] 53005- 3895 August, [facility] [place] [address] [id number] [place] [address] 53140- 1377 August, Cramp of both lower extremities R25.2 [place] [id number] [place] [address] 98415- 7305 August, Back pain M54.9 [facility] [place] [id number] [place] [address] 83623- 4265 August, [facility] [place] [id number] [place] [address] 19986- 1204 August, [facility] [id number] [place] [address] 67653 -6373 August, Cramp of both lower extremities R25.2 [facility] [place] [address] [id number] [place] [address] 24352- 2442 August, [facility] [place] [address] [place] [id number] [place] [address] 55134- 4423 August, Syncope R55 ; Paroxysmal atrial fibrillation I48.0 ; Dementia without behavioral disturbance, unspecified dementia type F03.90 and Chronic pain syndrome G89.4 [facility] [place] [id number] [place] [address] 69669- 1747 August, Type 2 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 and Syncope R55 [facility] [place] [id number] [place] [address] 35665- 9911 Jul, [facility] [place] [id number] [place] [address] 14592- 8964 Jul, [facility] [place] [id number] [place] [address] 41247- 3443 Jul, [facility] [place] [id number] [place] [address] 59564- 1639 Jul, [facility] [place] [id number] [place] [address] 89171- 5769 Jul, [facility] [place] [id number] [place] [address] 37132- 6341 Jul, UTI (urinary tract infection) N39.0 [facility] [place] [id number] [place] [address] 39480- 7630 Jul, [facility] [place] [id number] [place] [address] 42442- 9101 Jul, Major depressive disorder, recurrent episode, moderate F33.1 and Generalized anxiety disorder F41.1 [facility] [place] [id number] [place] [address] 43705- 4796 Jul, Generalized anxiety disorder F41.1 [facility] [place] [id number] [place] [address] 84805- 9724 Jul, Diarrhea R19.7 [facility] [place] [id number] [place] [address] 42012- 7411 Jul, [facility] [place] [address], [place] [address]- 5997 Jun, [facility] [place] [address], [place] [address]- 7361 Jun, Eczema L30.9 [facility] [place] [address], [place] [address]- 4146 Jun, [facility] [place] [address], [place] [address]- 5343 Jun, COPD (chronic obstructive pulmonary disease) J44.9 [facility] [place] [address], [place] [address]- 8086 Jun, [facility] [place] [address], [place] [address]- 5625 Jun, Major depressive disorder, recurrent episode, moderate F33.1 and Generalized anxiety disorder F41.1 [facility] [place] [address], [place] [address]- 7412 May, [facility] [place] [address], [place] [address]- 5302 May, UTI (urinary tract infection) N39.0 [facility] [place] [address], [place] [address]- 8716 May, [facility] [place] [address], [place] [address]- 4841 May, [facility] [place] [address], [place] [address]- 1879 May, [facility] [place] [address], [place] [address]- 5151 May, [facility] [place] [address], [place] [address]- 0230 Apr, Major depressive disorder, recurrent episode, moderate F33.1 and Generalized anxiety disorder F41.1 [facility] [place] [address], [place] [address]- 3681 Apr, COPD (chronic obstructive pulmonary disease) J44.9 [facility] [place] [id number] [place] [address] 76686- 4996 Apr, [facility] [place] [id number] [place] [address] 03539- 9584 Apr, Atrial flutter I48.92 [facility] [place] [id number] [place] [address] 50561- 2458 Apr, [facility] [place] [id number] [place] [address] 12759- 4999 Apr, [facility] [place] [id number] [place] [address] 24529- 8153 Mar, [facility] [place] [id number] [place] [address] 98144- 9886 Mar, [facility] [place] [id number] [place] [address] 70600- 7389 Mar, [facility] [place] [id number] [place] [address] 23164- 0750 Mar, Hyperlipidemia E78.5 ; Type 2 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 ; Major depressive disorder, recurrent episode, moderate F33.1 and Chronic pain syndrome G89.4 [facility] [place] [id number] [place] [address] 59722- 5827 16 Mar, 2015 [facility] [place] [id number] [place] [address] 08791- 7001 Mar, [facility] [place] [id number] [place] [address] 74043- 1926 Mar, [facility] [place] [id number] [place] [address] 38812- 4179 Mar, [facility] [place] [id number] [place] [address] 55766- 1088 30 Feb, 2015 COPD (chronic obstructive pulmonary disease) J44.9 and Back pain M54.9 [facility] [place] [id number] [place] [address] 65339- 7233 Feb, [facility] [place] [address], [place] [address]- 4340 Feb, [facility] [place] [id number] [place] [address] 16082- 7809 Feb, [facility] [place] [id number] [place] [address] 01543- 5154 Feb, [facility] [place] [id number] [place] [address] 12169- 0264 Feb, [facility] [place] [id number] [place] [address] 64006- 5109 Feb, [facility] [place] [id number] [place] [address] 98109- 2274 Feb, [facility] [place] [id number] [place] [address] 80813- 9038 Feb, [facility] [place] [id number] [place] [address] 70592- 1448 Feb, Diabetes E11.9 ; Back pain M54.9 and COPD (chronic obstructive pulmonary disease) J44.9 [facility] [place] [id number] [place] [address] 50846- 4528 Jan, [facility] [place] [id number] [place] [address] 38889- 8649 Jan, Major depression, recurrent F33.9 and Generalized anxiety disorder F41.1 [facility] [place] [address], [place] [address]- 2018 Jan, Chronic pain G89.29 [facility] [place] [id number] [place] [address] 52744- 2317 Jan, [facility] [place] [address], [place] [address]- 9465 Jan, [facility] [place] [id number] [place] [address] 00036- 2540 Jan, [facility] [place] [id number] [place] [address] 00239- 7280 Jan, [facility] [place] [id number] [place] [address] 76448- 7637 Jan, Nicotine dependence F17.200 [facility] [place] [id number] [place] [address] 99899- 7711 Jan, Nicotine dependence F17.200 and Back pain M54.9 [facility] [place] [id number] [place] [address] 56386- 7570 Jan, [facility] [place] [id number] [place] [address] 77915- 9568 28 Dec, 2014 [facility] [place] [id number] [place] [address] 44218- 4648 25 Dec, 2014 Anxiety, generalized 300.02 and Major depression, recurrent 296.30 [facility] [place] [id number] [place] [address] 62056- 7983 24 Dec, 2014 [facility] [place] [id number] [place] [address] 36555- 0096 21 Dec, 2014 [facility] [place] [id number] [place] [address] 61016- 1247 17 Dec, 2014 [facility] [place] [id number] [place] [address] 68457- 8138 15 Dec, 2014 [facility] [place] [id number] [place] [address] 14223- 0906 14 Dec, 2014 [facility] [place] [id number] [place] [address] 57033- 0666 11 Dec, 2014 [facility] [place] [id number] [place] [address] 91831- 9393 10 Dec, 2014 [facility] [place] [id number] [place] [address] 17781- 2530 08 Dec, 2014 Skin tear 879.8 [facility] [place] [address] [place] [address]- 9659 08 Dec, 2014 Routine gynecological examination V72.31 ; Breast cancer screening V76.10 and Family history of breast cancer in first degree relative V16.3 [facility] [place] [id number] [place] [address] 10467- 5714 Dec, [facility] [place] [id number] [place] [address] 19897- 5706 Dec, [facility] [place] [id number] [place] [address] 03195- 7033 Nov, [facility] [place] [id number] [place] [address] 32350- 1873 Nov, [place] [id number] [place] [address] 71808- 5965 Nov, Poor balance 781.99 and Vascular dementia, uncomplicated 290.40 [place] [id number] [place] [address] 82558- 0337 Nov, [facility] [place] [id number] [place] [address] 31796- 8740 Nov, Major depression, recurrent 296.30 and Anxiety, generalized 300.02 [facility] [place] [id number] [place] [address] 70850- 2339 Nov, [facility] [place] [id number] [place] [address] 32280- 5768 Nov, [facility] [place] [id number] [place] [address] 69194- 0585 Nov, [facility] [place] [id number] [place] [address] 57381- 8161 Nov, [facility] [place] [id number] [place] [address] 81745- 3597 Nov, Vascular dementia, uncomplicated 290.40 and Lumbago 724.2 [facility] [place] [id number] [place] [address] 05647- 4254 Nov, [facility] [place] [address], [place] [address]- 4499 Nov, [facility] [place] [address] [address]- 6040 Nov, [facility] [place] [address], [place] [address]- 8564 Oct, [facility] [place] [id number] [place] [address] 61847- 6353 Oct, [facility] [place] [id number] [place] [address] 19806- 8219 Oct, [facility] [place] [id number] [place] [phone]- [address]704 Oct, COPD (chronic obstructive pulmonary disease) 496 and Hyperlipidemia 272.4 [facility] [place] [id number] [place] [address]- [address]791 Oct, Major depression, recurrent 296.30 and Anxiety, generalized 300.02 [facility] [place] [id number] [address] Oct, [facility], [place] [id number], [place] [address] Oct, [facility], [place] [id number] [address] Oct, [facility], [place] [id number] [address] Sep, Lumbago 724.2 and Anxiety state, unspecified 300.00 [facility] [place] [id number] [address] Sep, [facility], [place] [id number] [place] [address] Sep, [facility] [place] [id number] [address] August, [facility] [place] [id number] [place] [address] August, Major depression, recurrent 296.30 ; Anxiety, generalized 300.02 and No condition on [place] II V71.09 [facility] [place] [address] [facility] [id number] [place] [address] August, [facility], [place] [id number] [place] [address] August, [facility] [place] [address] [facility] [id number] [place] [address] 29 Jul, 2014 [facility], [place] [id number] [place] [address] Jul, [facility] [place] [id number] [place] [address] Jul, [facility] [place] [address] [id number] [place] [address] Jun, [facility] [place] [id number] [place] [address] 30 Jun, 2014 [facility] [place] [id number] [place] [address] Jun, [facility] [place] [id number] [place] [address] 08[address] Jun, [facility] [place] [id number] [place] [address] 8260 Jun, [facility] [place] [id number] [place] [address] 1429 Jun, [facility] [place] [id number] [place] [address] 1664 23 Jun, 2014 [facility] [place] [address] [id number] [place] [address] 3796 17 Jun, 2014 [facility] [place] [address] [id number] [place] [address] 8983 Jun, [facility] [place] [facility] [address] [id number] [place] [address]- 2239 13 Jun, 2014 [facility] [place] [facility] [address] [id number] [place] [address]- 8612 10 Jun, 2014 [facility] [place] [facility] [address] [id number] [place] [address]- 9578 10 Jun, 2014 [facility] [place] [facility] [address] [id number] [place] [address]- 8758 07 Jun, 2014 [facility] [place] [facility] [address] [id number] [place] [address]- 9986 07 Jun, 2014 [facility] [place] [facility] [address] [id number] [place] [address]- 2283 Jun, 2014 [facility] [place] [facility] [address] [facility] [id number] [place] [address]- 4524 Jun, 2014 [facility] [place] [facility] [address] [id number] [place] [address]- 3353 May, 2014 [facility] [place] [facility] [address] [id number] [place] [address]- 5479 May, 2014 [facility] [place] [facility] [address] [facility] [id number] [place] [address]- 0780 May, 2014 [facility] [place] [facility] [address] [id number] [place] [address]- 4184 May, 2014 [facility] [place] [facility] [address] [id number] [place] [address]- 5385 May, 2014 [facility] [place] [facility] [address] [id number] [place] [address]- 4205 May, 2014 [facility] [place] [facility] [address] [id number] [place] [address]- 7977 19 May, 2014 [facility] [place] [facility] [address] [facility] [id number] [place] [address]- 7169 12 May, 2014 [facility] [place] [facility] [address] [facility] [id number] [place] [address]- 9042 May, 2014 [facility] [place] [facility] [address] [id number] [place] [address]- 4446 May, 2014 [facility] [place] [facility] [address] [id number] [place] [address]- 2416 May, 2014 [facility] [place] [facility] [address] [id number] [place] [address]- 5766 May, 2014 [facility] [place] [facility] [address] [id number] [place] [address]- 1408 May, [facility] [place] [facility] [address] [id number] [place] [address]- 9627 May, [facility] [place] [facility] [address] [id number] [place] [address]- 3811 Apr, [facility] [place] [facility] [address] [id number] [place] [address]- 0434 Apr, [facility] [place] [facility] [address] [id number] [place] [address]- 7526 Apr, [facility] [place] [facility] [address] [id number] [place] [address]- 4258 Apr, [facility] [place] [facility] [address] [id number] [place] [address]- 0319 Apr, [facility] [place] [facility] [address] [id number] [place] [address]- 9806 Apr, [facility] [place] [facility] [address] [id number] [place] [address]- 0037 Apr, [facility] [place] [facility] [address] [id number] [place] [address]- 7984 Apr, [facility] [place] [facility] [address] [id number] [place] [address]- 3836 Apr, [facility] [place] [facility] [address] [id number] [place] [address]- 1452 Apr, [facility] [place] [facility] [address] [id number] [place] [address]- 5540 Apr, [facility] [place] [facility] [address] [id number] [place] [address]- 1370 Apr, [facility] [place] [facility] [address] [id number] [place] [address]- 2865 Mar, [facility] [place] [facility] [address] [id number] [place] [address]- 7580 Mar, [facility] [place] [facility] [address] [id number] [place] [address]- 7663 30 Mar, 2014 [facility] [place] [facility] [address] [id number] [place] [address]- 6360 30 Mar, 2014 [facility] [place] [facility] [address] [id number] [place] [address]- 8035 Mar, [facility] [place] [facility] [address] [id number] [place] [address]- 6599 29 Mar, 2014 [facility] [place] [facility] [address] [id number] [place] [address]- 8431 Mar, [facility] [place] [facility] [address] [id number] [place] [address]- 5253 19 Mar, 2014 [facility] [place] [facility] [address] [id number] [place] [address]- 7360 15 Mar, 2014 [facility] [place] [facility] [address] [id number] [place] [address]- 0043 15 Mar, 2014 [facility] [place] [facility] [address] [id number] [place] [address]- 4875 15 Mar, 2014 [facility] [place] [facility] [address] [id number] [place] [address]- 2019 15 Mar, 2014 [facility] [place] [facility] [address] [id number] [place] [address]- 7741 15 Mar, 2014 [facility] [place] [facility] [address] [id number] [place] [address]- 5903 15 Mar, 2014 [facility] [place] [facility] [address] [id number] [place] [address]- 8118 Mar, [facility] [place] [facility] [address] [id number] [place] [address]- 8899 Mar, [facility] [place] [facility] [address] [id number] [place] [address]- 0958 Mar, [facility] [place] [facility] [address] [id number] [place] [address]- 9975 Mar, [facility] [place] [facility] [address] [id number] [place] [address]- 8074 Mar, [facility] [place] [facility] [address] [id number] [place] [address]- 5408 Mar, [facility] [place] [facility] [address] [id number] [place] [address]- 3808 Feb, [facility] [place] [facility] [address] [id number] [place] [address]- 8185 Feb, [facility] [place] [facility] [address] [id number] [place] [address]- 6702 Feb, [facility] [place] [facility] [address] [facility] [id number] [place] [address]- 4518 Feb, [facility] [place] [facility] [address] [id number] [place] [address]- 2551 Feb, [facility] [place] [facility] [address] [id number] [place] [address]- 3431 Feb, [facility] [place] [facility] [address] [id number] [place] [address]- 1211 Feb, [facility] [place] [facility] [address] [id number] [place] [address]- 5229 Feb, [facility] [place] [facility] [address] [id number] [place] [address]- 8163 Feb, [facility] [place] [facility] [address] [id number] [place] [address]- 5912 Feb, [facility] [place] [facility] [address] [id number] [place] [address]- 8463 Feb, [facility] [place] [facility] [address] [id number] [place] [address]- 9251 Feb, [facility] [place] [facility] [address] [id number] [place] [address]- 8635 Feb, [facility] [place] [facility] [address] [id number] [place] [address]- 6947 Feb, [facility] [place] [facility] [address] [id number] [place] [address]- 4058 Feb, [facility] [place] [facility] [address] [id number] [place] [address]- 1687 Feb, [facility] [place] [facility] [address] [id number] [place] [address]- 0190 Feb, [facility] [place] [facility] [address] [id number] [place] [address]- 9037 Jan, [facility] [place] [facility] [address] [id number] [place] [address]- 8947 Jan, [facility] [place] [facility] [address] [id number] [place] [address]- 5947 Jan, [facility] [place] [facility] [address] [id number] [place] [address]- 3823 Jan, [facility] [place] [facility] [address] [id number] [place] [address]- 7846 Jan, [facility] [place] [facility] [address] [id number] [place] [address]- 9598 Jan, [facility] [place] [facility] [address] [id number] [place] [address]- 0598 16 Jan, 2014 [facility] [place] [facility] [address] [id number] [place] [address]- 2546 Jan, [facility] [place] [facility] [address] [id number] [place] [address]- 3535 Jan, [facility] [place] [facility] [address] [id number] [place] [address]- 5516 Jan, [facility] [place] [facility] [address] [id number] [place] [address]281 Jan, [facility] [place] [facility] [address] [id number] [place] [address]- 1774 Dec, [facility] [place] [facility] [address] [id number] [place] [address]- 6267 Dec, [facility] [place] [facility] [address] [id number] [place] [address]- 6474 Nov, [facility] [place] [facility] [address] [id number] [place] [address]- 6957 Nov, [facility] [place] [facility] [address] [id number] [place] [address]- 6144 Nov, [facility] [place] [facility] [address] [id number] [place] [address]- 1629 Nov, [facility] [place] [facility] [address] [id number] [place] [address]- 4322 Nov, [facility] [place] [facility] [address] [id number] [place] [address]- 0619 Nov, [facility] [place] [facility] [address] [id number] [place] [address]- 8556 Nov, [facility] [place] [facility] [address] [id number] [place] [address]- 5832 Oct, [facility] [place] [facility] [address] [id number] [place] [address]- 5975 Oct, [facility] [place] [facility] [address] [id number] [place] [address]- 3998 Oct, [facility] [place] [facility] [address] [id number] [place] [address]- 3593 Oct, [facility] [place] [facility] [address] [id number] [place] [address]- 6137 Sep, [facility] [place] [facility] [address] [id number] [place] [address]- 2462 Sep, [facility] [place] [facility] [address] [id number] [place] [address]- 9067 Sep, [facility] [place] [facility] [address] [id number] [place] [address]- 3979 Sep, [facility] [place] [facility] [address] [id number] [place] [address]- 4862 Sep, [facility] [place] [facility] [address] [id number] [place] [address]- 8649 Sep, [facility] [place] [facility] [address] [id number] [place] [address]- 2031 Sep, [facility] [place] [facility] [address] [id number] [place] [address]- 5819 Sep, [facility] [place] [facility] [address] [id number] [place] [address]- 5554 Sep, [facility] [place] [facility] [address] [id number] [place] [address]- 7854 Sep, [facility] [place] [facility] [address] [id number] [place] [address]- 6172 Sep, [facility] [place] [facility] [address] [id number] [place] [address]- 4924 Sep, [facility] [place] [facility] [address] [id number] [place] [address]- 4498 Sep, [facility] [place] [facility] [address] [id number] [place] [address]- 3792 Sep, [facility] [place] [facility] [address] [id number] [place] [address]- 0957 August, [facility] [address] [id number] [place] [address]- 1943 August, [facility] [place] [facility] [address] [id number] [place] [address]- 3995 August, [facility] [place] [facility] [address] [id number] [place] [address]- 6369 August, [facility] [place] [facility] [address] [id number] [place] [address]- 7638 August, [facility] [place] [facility] [address] [id number] [place] [address]- 4994 August, [facility] [place] [facility] [address] [id number] [place] [address]- 0027 August, [facility] [place] [facility] [address] [id number] [place] [address]- 0953 August, [facility] [place] [facility] [address] [id number] [place] [address]- 1509 August, [facility] [place] [facility] [address] [id number] [place] [address]- 4830 August, [facility] [place] [facility] [address] [id number] [place] [address]- 1377 August, [facility] [place] [facility] [address] [id number] [place] [address]- 9241 August, [facility] [place] [facility] [address] [id number] [place] [address]- 4954 August, [facility] [place] [facility] [address] [id number] [place] [address]- 2221 August, [facility] [place] [facility] [address] [id number] [place] 4528 August, [facility] [place] [facility] [address] [id number] [place] [address]65 August, [facility] [place] [facility] [address] [id number] [place] [address]- 5262 August, [facility] [place] [facility] [address] [id number] [place] [address]- 5530 August, [facility] [place] [facility] [address] [id number] [place] [address]- 7556 August, [facility] [place] [facility] [address] [id number] [place] [address]- 0379 Jul, [facility] [place] [facility] [address] [id number] [place] [address]- 9988 Jul, [facility] [place] [facility] [address] [id number] [place] [address]- 5138 Jul, [facility] [place] [facility] [address] [id number] [place] [address]- 3774 Jul, [facility] [place] [facility] [address] [id number] [place] [address]- 6047 Jun, [facility] [place] [facility] [address] [id number] [place] [address]- 6161 Jun, [facility] [place] [facility] [address] [id number] [place] [address]- 4833 Jun, [facility] [place] [facility] [address] [id number] [place] [address]- 1947 24 Jun, 2013 [facility] [place] [facility] [address] [id number] [place] [address]- 9494 Jun, [facility] [place] [facility] [address] [id number] [place] [address]- 7858 17 Jun, 2013 [facility] [place] [facility] [address] [id number] [place] [address]- 6169 14 Jun, 2013 [facility] [place] [facility] [address] [id number] [place] [address]- 4267 14 Jun, 2013 [facility] [place] [facility] [address] [id number] [place] [address]- 2208 06 Jun, 2013 [facility] [place] [facility] [address] [id number] [place] [address]- 5401 Jun, [facility] [place] [facility] [address] [id number] [place] [address]- 7756 May, [facility] [place] [facility] [address] [id number] [place] [address] 2546 May, [facility] [place] [facility] [address] [id number] [place] [address]- 9292 May, [facility] [place] [facility] [address] [id number] [place] [address]- 4346 May, [facility] [place] [facility] [address] [id number] [place] [address]- 7126 May, [facility] [place] [facility] [address] [facility] [id number] [place] [address]- 3115 May, [facility] [place] [facility] [address] [id number] [place] [address]- 6350 May, [facility] [place] [facility] [address] [facility] [id number] [place] [address]- 5917 May, [facility] [place] [facility] [address] [facility] [id number] [place] [address]- 5120 May, [facility] [place] [facility] [address] [facility] [id number] [place] [address]- 1044 May, [facility] [place] [facility] [address] [facility] [id number] [place] [address]- 254 May, [facility] [place] [facility] [address] [facility] [id number] [place] [address]- 1234 17 May, 2013 [facility] [place] [facility] [address] [id number] [place] [address]- 5792 May, [facility] [place] [facility] [address] [facility] [id number] [place] [address]- 1316 May, [facility] [place] [facility] [address] [facility] [id number] [place] [address]- 7795 10 May, 2013 [facility] [address] [id number] [place] [address]- 3586 07 May, 2013 [facility] [place] [facility] [address] [id number] [place] [address] 2546 07 May, 2013 [facility] [address] [id number] [place] [address]- 2036 Apr, [facility] [address] [id number] [place] [address]- 4034 Apr, [facility] [address] [id number] [place] [address]- 0306 Apr, [facility] [address] [id number] [place] [address]- 2788 Apr, [facility] [address] [id number] [place] [address]- 7112 Apr, [facility] [address] [id number] [place] [address]- 7533 Apr, [facility] [address] [id number] [place] [address]- 0034 Apr, [facility] [address] [id number] [place] [address]- 4830 Mar, [facility] [place] [facility] [address] [id number] [place] [address]- 2066 Mar, [facility] [address] [id number] [place] [address]- 2546 Mar, [facility] [place] [facility] [address] [id number] [place] [address]- 5046 Mar, [facility] [place] [facility] [address] [id number] [place] [address]- 2546 Mar, [facility] [place] [facility] [address] [id number] [place] [address]- 1877 Mar, [facility] [place] [facility] [address] [id number] [place] [address]- 5526 Mar, [facility] [place] [facility] [address] [id number] [place] [address]- 0285 Mar, [facility] [place] [facility] [address] [id number] [place] 6466 Mar, [facility] [place] [facility] [address] [id number] [place] [address]- 4067 Mar, [facility] [place] [facility] [address] [id number] [place] [address]- 1059 Mar, [facility] [place] [facility] [address] [id number] [place] [address]- 3362 Feb, [facility] [place] [facility] [address] [id number] [place] [address]- 8406 Feb, [facility] [place] [facility] [address] [id number] [place] [address]- 3088 Feb, [facility] [place] [facility] [address] [id number] [place] [address]- 1996 Feb, [facility] [place] [facility] [address] [id number] [address]- 6718 Feb, [facility] [place] [facility] [address] [id number], [place] [address]- 6314 19 Feb, 2013 [facility] [place] [facility] [address] [id number], [place] [address]- 6890 15 Feb, 2013 [facility] [place] [facility] [address] [id number] [place] [address]- 2304 14 Feb, 2013 [facility] [place] [facility] [address] [id number] [place] [address]- 5766 14 Feb, 2013 [facility] [place] [facility] [address] [id number], [place] [address]- 6146 13 Feb, 2013 [facility] [place] [facility] [address] [id number] [place] [address]- 9038 Feb, [facility] [place] [facility] [address] [id number] [place] [address]- 8744 Feb, [facility] [place] [facility] [address] [id number], [place] [address]- 1485 Feb, [facility] [place] [facility] [address] [id number] [place] [address]- 0240 Feb, [facility] [place] [facility] [address] [id number] [place] [address]- 1921 Feb, [facility] [place] [facility] [address] [id number] [place] [address] Feb, [facility] [place] [facility] [address] [id number] [place] [address] Jan, [facility] [place] [facility] [address] [id number] [place] [address] Jan, [facility] [place] [facility] [address] [id number], [place] [address] Jan, [facility] [place] [facility] [address] [id number] [place] [address] Jan, [facility] [place] [facility] [address] [id number] [place] [address] Jan, [facility] [place] [facility] [address] [id number] [place] [address] Jan, [facility] [place] [facility] [address] [id number], [place] [address] Jan, [facility] [place] [facility] [address] [id number], [place] [address] 10 Jan, 2013 [facility] [place] [facility] [address] [id number], [place] [address] 10 Jan, 2013 [facility] [place] [facility] [address] [id number], [place] [address] 27 Dec, 2012 [facility] [place] [facility] [address] [id number] [place] [address] 20 Dec, 2012 [facility] [place] [facility] [address] [id number] [place] [address] 2546 19 Dec, 2012 [facility] [place] [facility] [address] [id number] [place] [address] 2546 10 Dec, 2012 [facility] [place] [facility] [address] [id number] [place] [address] 2546 04 Dec, 2012 [facility] [place] [facility] [address] [id number] [place] [address] 2549 03 Dec, 2012 [facility] [place] [facility] [address] [id number] [place] [address] 47[address] Nov, [facility] [place] [facility] [address] [id number] [place] [address] Nov, [facility] [place] [facility] [address] [id number] [place] [address] Nov, [facility] [place] [facility] [address] [id number] [place] [address] Nov, [facility] [place] [facility] [address] [id number] [place] [address] Nov, [facility] [place] [facility] [address] [id number] [place] [address]- [address] Nov, [facility] [place] [facility] [address] [id number] [place] [address] 25[address] Nov, [facility] [place] [facility] [address] [id number] [place] [address] 2541 Nov, [facility] [place] [facility] [address] [id number] [place] [address] 254 14 Nov, 2012 [facility] [place] [facility] [address] [id number] [place] [address] 07 Nov, 2012 [facility] [place] [facility] [address] [id number] [place] [address] Oct, [facility] [place] [facility] [address] [id number] [place] [address] 33[address] Oct, 2012 [facility] [place] [facility] [address] [id number] [place] [address]- 0968 Oct, [facility] [place] [facility] [address] [id number] [place] [address] Oct, 2012 [facility] [place] [facility] [address] [id number] [place] [address] Oct, 2012 [facility] [place] [facility] [address] [id number] [place] [address]- [address] Oct, [facility] [place] [facility] [address] [id number] [place] [address] Oct, [facility] [place] [facility] [address] [id number] [place] [address] 74[address] Oct, [facility] [place] [facility] [address] [id number] [place] [address] 8464 Sep, [facility] [place] [facility] [address] [id number] [place] [address] Sep, [facility] [place] [facility] [address] [id number] [place] [address] Sep, [facility] [place] [facility] [address] [id number], [place] [address] Sep, [facility] [place] [facility] [address] [id number], [place] [address] Sep, [facility] [place] [facility] [address] [id number] [place] [address] 77[address] Sep, [facility] [place] [facility] [address] [id number], [place] [address] Sep, [facility] [place] [facility] [address] [id number] [place] [address] Sep, [facility] [place] [facility] [address] [id number] [place] [address] August, [facility] [address] [id number] [place] [address] August, [facility] [address] [id number] [place] [address] August, [facility] [address] [id number] [place] [address] August, [facility] [address] [id number] [place] [address] 74[address] August, [facility] [address] [id number] [place] [address] Jul, [facility] [address] [id number] [place] [address] Jul, [facility] [address] [id number] [place] [address] Jul, [facility] [address] [id number] [place] [address] 16[address] Jul, [facility] [address] [id number] [place] [address]- 25[address] Jul, [facility] [address] [id number] [place] [address] Jun, [facility] [address] [id number] [place] [address]- [address]84 18 Jun, 2012 [facility] [address] [id number] [place] [address]- [address] 15 Jun, 2012 [facility] [address] [id number] [place] [address]- [address] 14 Jun, 2012 [facility] [address] [id number] [place] [address]- 8028 12 Jun, 2012 [facility] [address] [id number] [place] [address]113 08 Jun, 2012 [facility] [address] [id number] [place] [address]- [address] 08 Jun, 2012 [facility] [address] [id number] [place] [address]- 6[address] Jun, [facility] [address] [id number] [place] [address] Jun, [facility] [address] [id number] [place] [address]- 0[address] May, [facility] [address] [id number] [place] [address]- 118[address] May, [facility] [address] [id number] [place] [address]- 1265 May, [facility] [address] [address] [id number] [place] [address] May, [facility] [address] [id number] [place] [address] Apr, [facility] [address] [id number] [place] [address] 4730 Apr, [facility] [address] [id number] [place] [address] 4291 Apr, [facility] [address] [id number] [place] [address]- 4860 Apr, [facility] [address] [id number], [place] [address] Apr, [facility] [address] [id number] [place] [address] 5168 Apr, [facility] [address] [id number] [place] [address]- 6808 Apr, [facility] [address] [id number] [place] [address]34 Mar, [facility] [address] [place] [id number] Mar, [facility] [address] [id number] [place] [address] 3836 Mar, [facility] [place] [facility] [address] [id number] [place] [address] 6146 Mar, [facility] [address] [id number] [place] [address] Mar, [facility] [place] [facility] [address] [id number] [place] [address] 6236 Mar, [facility] [address] [id number] [place] [address] 1196 Mar, [facility] [address] [id number] [place] [address] Mar, [facility] [address] [id number] [place] [address]- 1086 Mar, [facility] [place] [facility] [address] [id number] [place] [address] 2392 Mar, [facility] [address] [id number] [place] [address] 4517 Mar, [facility] [place] [facility] [address] [id number] [place] [address] 1916 Mar, [facility] [place] [facility] [address] [id number] [place] [address] 6941 Mar, [facility] [place] [facility] [address] [id number], [place] [address] Mar, [facility] [place] [facility] [address] [id number] [place] [address]- 4886 Mar, [facility] [place] [facility] [address] [id number] [place] [address]- 5186 Mar, [facility] [place] [facility] [address] [id number] [place] [address] 1946 Mar, [facility] [place] [facility] [address] [id number] [place] [address]- 2450 Feb, [facility] [address] [id number] [place] [address] 8908 Feb, [facility] [place] [facility] [address] [id number] [place] [address]- 2336 Feb, [facility] [place] [facility] [address] [id number] [place] [address]- 1406 Feb, [facility] [place] [facility] [address] [id number] [place] [address]- 1066 Feb, [facility] [place] [facility] [address] [id number] [place] [address]- 2814 Feb, [facility] [place] [facility] [address] [id number] [place] [address] 3202 Feb, [facility] [address] [id number] [place] [address] 7730 Feb, [facility] [address] [id number] [place] [address] 0262 Feb, [facility] [place] [facility] [address] [id number] [place] [address] 4427 Feb, [facility] [address] [id number] [place] [address]- 9569 Feb, [facility] [place] [facility] [address] [id number] [place] [address] 2549 Feb, [facility] [place] [facility] [address] [id number] [place] [address] 5339 Feb, [facility] [place] [facility] [address] [id number] [place] [address]- 7872 Feb, [facility] [place] [facility] [address] [id number] [place] [address]- 9466 Feb, [facility] [place] [facility] [address] [id number] [place] [address]- 5635 Feb, [facility] [place] [facility] [address] [id number] [place] [address] 2274 Jan, [facility] [place] [facility] [address] [id number] [place] [address] 4506 Jan, [facility] [place] [facility] [address] [id number] [place] [address] 2805 Jan, [facility] [place] [facility] [address] [id number] [place] [address]- 4469 Jan, [facility] [place] [facility] [address] [id number] [place] [address]- 5829 Jan, [facility] [place] [facility] [address] [id number] [place] [address]- 4132 Jan, [facility] [place] [facility] [address] [id number] [place] [address]- 6219 Jan, [facility] [place] [facility] [address] [id number], [place] [address] Jan, [facility] [place] [facility] [address] [id number] [place] [address]- 8073 Jan, [facility] [place] [facility] [address] [id number], [place] [address] 3[address] Jan, [facility] [place] [facility] [address] [facility] [id number][place] [address] 9336 Jan, [facility] [place] [facility] [address] [id number], [place] [address] 7617 Jan, [facility] [place] [facility] [address] [id number], [place] [address] 4967 Jan, [facility] [place] [facility] [address] [id number], [place] [address]- 8062 Jan, [facility] [place] [facility] [address] [id number] [address] Jan, [facility] [place] [facility] [address] [id number], [place] [address] 2132 05 Jan, 2012 [facility] [place] [facility] [address] [id number] [place] [address]- 5276 04 Jan, 2012 [facility] [place] [facility] [address] [id number] [place] [address] 2546 21 Dec, 2011 [facility] [place] [facility] [address] [id number] [place] [address]- 7056 20 Dec, 2011 [facility] [place] [facility] [address] [id number] [place] [address] 2546 18 Dec, 2011 [facility] [place] [facility] [address] [id number] [place] [address]- 9526 18 Dec, 2011 [facility] [place] [facility] [address] [id number] [place] [address]- 0946 10 Dec, 2011 [facility] [place] [facility] [address] [id number] [place] [address]- 9356 10 Dec, 2011 [facility] [place] [facility] [address] [id number] [place] [address]- 0078 10 Dec, 2011 [facility] [place] [facility] [address] [id number] [place] [address] 3859 07 Dec, 2011 [facility] [place] [facility] [address] [id number] [place] [address]- 2188 30 Nov, 2011 [facility] [place] [facility] [address] [id number] [place] [address]- 5015 25 Nov, 2011 [facility] [place] [facility] [address] [id number] [place] [address]- 2540 24 Nov, 2011 [facility] [place] [facility] [address] [id number] [place] [address]- 1374 Nov, [facility] [place] [facility] [address] [id number] [place] [address]- 8055 Nov, [facility] [place] [facility] [address] [id number] [place] [address]- 5194 16 Nov, 2011 [facility] [place] [facility] [address] [id number] [place] [address]- 3131 30 Oct, 2011 [facility] [place] [facility] [address] [id number] [place] [address] 3696 30 Oct, 2011 [facility] [place] [facility] [address] [id number] [place] [address]- 2546 Oct, [facility] [place] [facility] [address] [id number] [place] [address]- 9536 Oct, [facility] [place] [facility] [address] [id number] [place] [address]- 5536 Oct, [facility] [place] [facility] [address] [id number] [place] [address]- 6967 Oct, [facility] [place] [facility] [address] [id number] [place] [address]- 4176 Oct, [facility] [place] [facility] [address] [id number] [place] [address]- 8929 Sep, [facility] [place] [facility] [address] [id number] [place] [address]- 0361 Sep, [facility] [place] [facility] [address] [id number] [place] [address]- 8591 Sep, [facility] [place] [facility] [address] [id number] [place] [address]- 7357 Sep, [facility] [place] [facility] [address] [id number] [place] [address]- 3209 19 Sep, 2011 [facility] [place] [facility] [address] [id number] [place] [address]- 2540 15 Sep, 2011 [facility] [place] [facility] [address] [id number] [place] [address]- 1550 14 Sep, 2011 [facility] [place] [facility] [address] [id number] [place] [address]- 2546 11 Sep, 2011 [facility] [place] [facility] [address] [id number] [place] [address]- 0368 Sep, [facility] [address] [id number] [place] [address]- 3548 Sep, [facility] [place] [facility] [address] [id number] [place] [address]- 9136 August, [facility] [place] [facility] [address] [id number] [place] [address]- 4082 August, [facility] [place] [facility] [address] [id number] [place] [address]- 3643 August, [facility] [address] [id number] [place] [address]- 7050 August, [facility] [place] [facility] [address] [id number] [place] [address]- 3427 August, [facility] [place] [facility] [address] [id number] [place] [address]- 8918 Jul, [facility] [place] [facility] [address] [id number] [place] [address]- 4742 Jul, [facility] [place] [facility] [address] [id number] [place] [address]- 9398 Jul, [facility] [place] [facility] [address] [id number] [place] [address]- 8819 Jul, [facility] [place] [facility] [address] [id number] [place] [address]- 6494 Jul, [facility] [place] [facility] [address] [id number] [place] [address]- 3307 Jul, [facility] [place] [facility] [address] [id number] [place] [address]- 0632 Jul, [facility] [place] [facility] [address] [id number] [place] [address]- 7161 Jun, [facility] [place] [facility] [address] [id number] [place] [address]- 3914 Jun, [facility] [place] [facility] [address] [id number] [place] [address]- 8305 Jun, [facility] [place] [facility] [address] [id number] [place] [address]- 5359 Jun, [facility] [place] [facility] [address] [id number] [place] [address] Jun, [facility] [place] [facility] [address] [id number] [place] [address]- 6966 May, [facility] [place] [facility] [address] [id number] [place] [address]- 9169 May, [facility] [place] [facility] [id number] [place] [address], [place] [address]- 0930 May, [facility] [place] [facility] [address] [id number] [place] [address]- 3345 May, [facility] [place] [facility] [id number] [place] [address], [place] [address]- 5466 May, [facility] [place] [facility] [address] [id number] [place] [address]- 0579 May, [facility] [place] [facility] [id number] [place] [address]- 9612 Apr, [facility] [place] [facility] [address] [id number] [place] [address]- 8210 Mar, [facility] [place] [facility] [address] [id number] [place] [address] 2541 Feb, [facility] [place] [facility] [address] [id number] [place] [address] 2549 Feb, [facility] [place] [facility] [address] [facility] [id number] [place] [address]- 2614 Feb, [facility] [place] [facility] [address] [facility] [id number] [place] [address]- 3726 Feb, [facility] [place] [facility] [address] [facility] [id number] [place] 44[address] Jan, [facility] [place] [facility] [address] [id number] [place] [address]- 2058 27 Jan, 2011 [facility] [place] [facility] [address] [id number] [place] [address]- 8393 26 Jan, 2011 [facility] [place] [facility] [address] [id number] [place] [address]- 4861 24 Jan, 2011 [facility] [place] [facility] [address] [id number] [place] [address]- 5905 14 Jan, 2011 [facility] [place] [facility] [address] [id number] [place] [address]- 8758 Dec, [facility] [place] [facility] [address] [id number] [place] [address]- 7120 Oct, [facility] [place] [facility] [address] [id number] [place] [address]- 1230 August, [facility] [place] [facility] [address] [id number] [place] [address]- 9759 29 Mar, 2010 [facility] [place] [facility] [address] [id number] [place] [address]- 1690 27 Mar, 2010 [facility] [place] [facility] [address] [id number], [place] [address]- 4754 16 Mar, 2010 [facility] [place] [facility] [address] [id number], [place] [address]- 2939 15 Mar, 2010 [facility] [place] [facility] [address] [id number], [place] [address]- 0474 15 Mar, 2010 [facility] [place] [facility] [address] [id number] [place] [address]- 8966 08 Mar, 2010 [facility] [place] [facility] [address] [id number], [place] [address]- 0816 03 Mar, 2010 [facility] [place] [facility] [address] [id number], [place] [address]- 5380 24 Feb, 2010 [facility] [place] [facility] [address] [id number], [place] [address]- 7107 24 Feb, 2010 [facility] [place] [facility] [address] [id number] [place] [address]- 6837 15 Feb, 2010 [facility] [place] [facility] [address] [facility] [id number], [place] [address]- 2685 Jan, [facility] [place] [facility] [address] [facility] [id number] [place] [address]- 7730 18 Jan, 2010 [facility] [place] [facility] [address] [facility] [id number], [place] [address]- 0449 18 Jan, 2010 [facility] [place] [facility] [address] [facility] [id number] [place] [address], [place] [address]- 9542 Nov, [facility] [place] [facility] [address] [facility] [id number], [place] [address]- 2215 Sep, [facility] [place] [facility] [id number] [place] [address]- 7014 August, [facility] [place] [facility] [address] [facility] [id number], [place] [address]- 0621 30 Mar, 2009 [facility] [place] [facility] [address] [id number], [place] [address]- 4840 07 Mar, 2009 [facility] [place] [facility] [address] [id number], [place] [address]- 8733 17 Feb, 2009 [facility] [place] [facility] [address] [facility] [id number], [place] [address]- 0543 10 Feb, 2009 [facility] [place] [facility] [address] [facility] [id number], [place] [address]- 7324 10 Feb, 2009 [facility] [place] [facility] [address] [facility] [id number], [place] [address]- 2625 10 Feb, 2009 [facility] [place] [facility] [address] [facility] [id number], [place] [address]- 6134 06 Feb, 2009 [facility] [place] [facility] [address] [id number], [place] [address]- 3076 27 Jan, 2009 [facility] [place] [facility] [address] [id number], [place] [address]- 0587 Jan, [facility] [place] [id number], [place] [address]- 6313 Jan, [facility] [id number], [place] [address]- 3323 Jan, [facility] [id number], [place] [address]- 2082 Nov, [facility] [place] [id number], [place] [address]- 7109 Sep, [facility] [id number] [place] [address]- 1432 August, [facility] [place] [id number], [place] [address]- 2230 Jul, [facility] [place] [id number], [place] [address]- 2793 May, IMMUNIZATIONS No Known Immunizations SOCIAL HISTORY [...] Knee Surgery 07/16/17 Hospitalization History [facility] [place]- left hand/wrist swelling 10/09/2017
--- OUTSIDE RECORDS SUMMARY | 2018-01-01 11:46 | XMS REPORT ---
Author Author 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 Name Role Phone SENAIT DUNLAP Unavailable PROBLEMS Type Condition ICD9-CM Code EYT48-LO Code Onset Dates Condition Status SNOMED Code Problem History of common bile duct surgery Z98.89 Active 387129857 Problem Barretts esophagus K22.70 Active 158030077 Problem 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 Active 71673906 Problem Colon polyp K63.5 Active 37787070 Problem Bilateral low back pain without sciatica M54.5 Active 086863132 Problem Screening breast examination Z12.39 Active 960464241 Problem Postmenopausal Z78.0 Active 97434416 Problem Osteopenia M85.80 Active 111610144 Problem Cigarette nicotine dependence without complication F17.210 Active 50427892 Problem Type 2 diabetes mellitus with diabetic peripheral angiopathy without gangrene E11.51 Active 922969950 Problem Vascular dementia without behavioral disturbance F01.50 Active [id number] Problem Unspecified atherosclerosis of [place] arteries of extremities, unspecified extremity I70.209 Active 310706791068945 Problem Arthritis M19.90 Active 1305445 Problem Chronic atrial fibrillation I48.2 Active 047907998 Problem Chronic obstructive pulmonary disease with acute lower respiratory infection J44.0 Active 777131650 Problem Other chronic pancreatitis K86.1 Active 927990760 Problem Stress incontinence of urine N39.3 Active 97964973 Problem Controlled type 2 diabetes mellitus without complication, without long -term current use of insulin E11.9 Active 822828740 Problem Unspecified psychosis F29 Active 80278816 Problem Xeroderma Q80.9 Active 93490372 Problem COPD (chronic obstructive pulmonary disease) J44.9 Active 00343182 Problem Dementia without behavioral disturbance, unspecified dementia type F03.90 Active 89380981 Problem Gastroparesis K31.84 Active 376899777 Problem Type 2 diabetes mellitus with diabetic neuropathy, without long-term current use of insulin E11.40 Active 46185456 Problem Osteoporosis M81.0 Active 60155433 Problem Atherosclerosis of [place] artery of both lower extremities with intermittent claudication I70.213 Active 396652157028389 Problem Hyperlipidemia E78.5 Active 46584384 Problem Diabetic polyneuropathy associated with type 2 diabetes mellitus E11.42 Active 98381937 Problem Essential tremor G25.0 Active 07194715 Problem Atherosclerotic heart disease of [place]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 I25.118 Active 5718304832632 Problem Generalized anxiety disorder F41.1 Active 464936678 Problem Gastroesophageal reflux disease, esophagitis presence not specified K21.9 Active 021725009 Problem Coronary artery disease involving [place] coronary artery of [place] 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 I25.118 Active 7548426136566 Problem Postconcussion syndrome F07.81 Active 74424010 Problem Chronic pain syndrome G89.4 Active 109781441 Problem Migraine without aura and without status migrainosus, not intractable G43.009 Active 876655999 Problem Paroxysmal atrial fibrillation I48.0 Active 501755074 Problem Migraine without aura and with status migrainosus, not intractable G43.001 Active 381945509 Problem Cervicalgia M54.2 Active 4392524467544 Problem Acute exacerbation of chronic obstructive pulmonary disease (COPD) J44.1 Active 045936877 Problem Major depressive disorder, recurrent episode, moderate F33.1 Active 219020627 Problem Crohn''s disease without complication, unspecified gastrointestinal tract location K50.90 Active 67436291 Problem Chronic fatigue R53.82 Active 31347924 Problem Bipolar affective disorder, currently depressed, moderate F31.32 Active 306402866 ALLERGIES No Information ENCOUNTERS Encounter Location Date Diagnosis [place] [id number] [address] Nov, [place] [id number] [address] Nov, Bronchitis J40 [facility] [id number] [address] Oct, [place] [address] [address] Oct, Bipolar affective disorder, currently depressed, moderate F31.32 ; Vascular dementia without behavioral disturbance F01.50 and Generalized anxiety disorder F41.1 [facility] [id number] [place] [address] 06942- 6127 Oct, [facility] [id number] [place] [address] 39395- 4656 Oct, [facility] [id number] [place] [address] 11958- 0267 Oct, Edema of both legs R60.0 [facility] [id number] [place] [address] 28238- 9561 Oct, [facility] [id number] [place] [address] 21002- 8885 Sep, [facility] [id number] [place] [address] 68551- 6027 Sep, [facility] [id number] [place] [address] 80839- 1474 Sep, [facility] [id number] [place] [address] 54481- 9912 Sep, Encounter for well woman exam with routine gynecological exam Z01.419 ; Screening for STDs (sexually transmitted diseases) Z11.3 ; Screening breast examination Z12.31 and Overweight (BMI 25.0-29.9) E66.3 [facility] [address] [place] [address] 86228- 6775 Sep, [facility] [id number] [place] [address] 85702- 5798 Sep, [facility] [id number] [place] [address] 71022- 6464 Sep, [facility] [id number] [place] [address] 52999- 5948 August, [facility] [address] [place] [address] 01532- 4085 August, [facility] [address] [address]- 9599 August, Type 2 diabetes mellitus with diabetic neuropathy, without long-term current use of insulin E11.40 and Sprain of right ankle, unspecified ligament, initial encounter S93.401A [facility] [id number] [place] [address] 38791- 0036 August, [facility] [id number] [place] [address] 31691- 7939 August, [facility] [id number] [place] [address] 18508- 4054 August, [facility] [id number] [place] [address] 83417- 9457 August, Gastroesophageal reflux disease, esophagitis presence not specified K21.9 [facility] [id number] [place] [address] 58115- 9267 August, [facility] [id number] [place] [address] 51141- 7535 August, [facility] [id number] [place] [address] 79359- 7342 August, [facility] [id number] [place] [address] 74166- 2649 August, Type 2 diabetes mellitus with diabetic neuropathy, without long-term current use of insulin E11.40 and Elevated liver enzymes R74.8 [facility] [id number] [address]- 8034 Jul, [facility] [id number] [place] [address] 88428- 2737 Jul, Cough R05 [facility] [id number] [place] [address] 74877- 8706 Jul, [facility] [id number] [place] [address] 95032- 4735 Jul, [facility] [address] 19224- 3544 Jul, Bipolar affective disorder, currently depressed, moderate F31.32 ; Vascular dementia without behavioral disturbance F01.50 and Generalized anxiety disorder F41.1 [facility] [address] 62403- 6784 Jul, [facility] [address] 04078- 5936 Jul, Type 2 diabetes mellitus with diabetic neuropathy, without long-term current use of insulin E11.40 and Elevated liver enzymes R74.8 [place] [address] 29186- 4610 Jul, [facility] [address] 18069- 2839 Jul, [place] [address] 91296- 6755 Jul, [facility] [address] 09196- 8159 Jul, Post-menopausal Z78.0 [facility] [address] 26441- 9205 Jul, Stress incontinence of urine N39.3 [place] [id number] [place] [address] 11343- 5358 Jul, [facility] [address] 62750- 1339 Jul, [facility] [id number] [place] [address] 63992- 4398 Jul, Stress incontinence of urine N39.3 and Cough R05 [facility] [id number] [place] [address] 36308- 5232 Jul, [facility] [address] 82985- 9979 Jul, [facility] [address] [address]- 4171 Jul, [facility] [id number] [place] [address] 88396- 7147 Jul, Gastroesophageal reflux disease, esophagitis presence not specified K21.9 [facility] [address] [place] [address] 66463- 5623 Jun, Diabetic polyneuropathy associated with type 2 diabetes mellitus E11.42 [facility] [id number] [place] [address] 20967 2542 Jun, Diabetic polyneuropathy associated with type 2 diabetes mellitus E11.42 ; Coronary artery disease involving [place] coronary artery of [place] 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 I25.118 and Paroxysmal atrial fibrillation I48.0 [facility] [id number] [place] [address] 90599- 4527 Jun, [facility] [id number] [place] [address] 61529 2547 Jun, [facility] [id number] [place] [address] 39181 2544 Jun, Gastroenteritis K52.9 [facility] [id number] [place] [address] 72381 2546 Jun, Gastroenteritis K52.9 [facility] [address] [address] 254 Jun, [facility] [id number] [place] [address] 34261 2540 Jun, [facility] [address] [address] 2547 Jun, Sprain of right ankle, unspecified ligament, initial encounter S93.401A ; Type 2 diabetes mellitus with diabetic neuropathy, without long-term current use of insulin E11.40 ; Atherosclerosis of [place] artery of both lower extremities with intermittent claudication I70.213 ; Atherosclerotic heart disease of [place]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 I25.118 ; Chronic atrial fibrillation I48.2 and Crohn''s disease without complication, unspecified gastrointestinal tract location K50.90 [facility] [id number] [place] [address] 43785 -0087 17 Jun, 2017 Cough R05 and Chronic obstructive pulmonary disease with acute lower respiratory infection J44.0 [facility] [id number] [place] [address] 80750- 2967 Jun, [facility] [address] 56012- 6532 Jun, Coughing R05 ; Unspecified atherosclerosis of [place] arteries of extremities, unspecified extremity I70.209 ; Type 2 diabetes mellitus with diabetic peripheral angiopathy without gangrene E11.51 ; Crohn''s disease without complication, unspecified gastrointestinal tract location K50.90 ; Other chronic pancreatitis K86.1 and Chronic atrial fibrillation I48.2 [facility] [id number] [place] [address] 14090 -8328 Jun, [place] [id number] [place] [address] 94479- 8589 Jun, Bipolar affective disorder, currently depressed, moderate F31.32 ; Vascular dementia without behavioral disturbance F01.50 and Generalized anxiety disorder F41.1 [place] [id number] [place] [address] 73043- 3031 May, Generalized anxiety disorder F41.1 [place] [id number] [place] [address] 70826- 0440 May, [place] [id number] [place] [address] 44182- 6737 May, [place] [address] 61212- 1223 15 May, 2017 Coughing R05 [place] [id number] [place] [address] 45119- 7310 09 May, 2017 [place] [id number] [place] [address] 46932- 5584 May, Bipolar affective disorder, currently depressed, moderate F31.32 ; Vascular dementia without behavioral disturbance F01.50 and Generalized anxiety disorder F41.1 [place] [id number] [place] [address] 68650- 8588 Apr, Generalized anxiety disorder F41.1 [place] [id number] [place] [address] 99227- 0995 Apr, [place] [id number] [place] [address] 92895- 9239 Apr, Vascular dementia without behavioral disturbance F01.50 ; Generalized anxiety disorder F41.1 and Bipolar affective disorder, currently depressed, moderate F31.32 [place] [id number] [place] [address] 74354- 5092 Apr, Generalized anxiety disorder F41.1 [facility] [id number] [place] [address] 74708 -5562 Apr, Cough R05 and Acute exacerbation of chronic obstructive pulmonary disease (COPD) J44.1 [place] [id number] [place] [address] 31689- 7512 Apr, [facility] [id number] [place] [address] 88522 -7134 Mar, Cough R05 and Cigarette nicotine dependence without complication F17.210 [place] [id number] [place] [address] 19278- 6004 Mar, [place] [id number] [place] [address] 14318- 4792 Feb, Generalized anxiety disorder F41.1 ; Major depressive disorder, recurrent episode, moderate F33.1 ; Vascular dementia without behavioral disturbance F01.50 and Unspecified psychosis F29 [place] [id number] [place] [address] 23789- 1505 Feb, [place] [id number] [place] [address] 92280- 3026 Feb, [place] [id number] [place] [address] 49926- 2253 Feb, Generalized anxiety disorder F41.1 [place] [id number] [place] [address] 34106- 1564 Feb, Generalized anxiety disorder F41.1 [place] [address] 41120- 8139 Feb, Dizziness R42 ; Chronic fatigue R53.82 ; Postconcussion syndrome F07.81 ; Fall, initial encounter W19.XXXA and Disorientation R41.0 [place] [address] 09633- 7941 Feb, Postconcussion syndrome F07.81 ; Injury of head, initial encounter S09.90XA ; Fall, initial encounter W19.XXXA ; Disorientation R41.0 and Acute cystitis with hematuria N30.01 [place] [id number] [place] [address] 78928- 8198 Jan, Gastroesophageal reflux disease, esophagitis presence not specified K21.9 ; Post-menopausal Z78.0 and Migraine without aura and without status migrainosus, not intractable G43.009 [place] [id number] [place] [address] 96798- 9411 Jan, [place] [id number] [place] [address] 41558- 8243 Jan, Generalized anxiety disorder F41.1 ; Major depressive disorder, recurrent episode, moderate F33.1 ; Vascular dementia without behavioral disturbance F01.50 and Unspecified psychosis F29 [place] [id number] [place] [address] 01441- 5091 Jan, Pneumonia of left lower lobe due to infectious organism J18.1 [place] [id number] [place] [address] 22305- 9540 Jan, Migraine without aura and with status migrainosus, not intractable G43.001 [facility] [address] [place] [address] 39905 -7816 04 Jan, 2017 Migraine without aura and without status migrainosus, not intractable G43.009 [facility] [id number] [place] [address] 22703- 9905 19 Dec, 2016 Hematoma T14.8 [facility] [id number] [place] [address] 78697- 8480 12 Dec, 2016 [facility] [id number] [place] [address] 97514 -2094 Nov, Fatigue, unspecified type R53.83 [place] [id number] [place] [address] 41165- 0027 Nov, Scabies B86 and Coronary artery disease involving [place] coronary artery of [place] 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 I25.118 [place] [id number] [place] [address] 89065- 8218 Nov, [place] [id number] [place] [address] 14305- 6851 Nov, [place] [id number] [place] [address] 75471- 6640 Oct, [place] [id number] [place] [address] 55234- 9564 Oct, Generalized anxiety disorder F41.1 and Major depressive disorder, recurrent episode, moderate F33.1 [place] [id number] [place] [address] 59346- 5176 Oct, Cramp of both lower extremities R25.2 [place] [address] 31458- 3296 18 Oct, 2016 Leg cramps R25.2 [place] [id number] [place] [address] 00073- 0096 17 Oct, 2016 Chronic pain syndrome G89.4 [place] [address] [address]- 0444 17 Oct, 2016 [facility] [id number] [place] [address] 13091- 0249 14 Oct, 2016 [facility] [id number] [place] [address] 02139- 3313 11 Oct, 2016 Routine gynecological examination Z01.419 and Screening for breast cancer Z12.31 [place] [id number] [place] [address] 42542- 5442 28 Sep, 2016 Diarrhea R19.7 [place] [id number] [place] [address] 46789- 0221 26 Sep, 2016 Back pain M54.9 [place] [id number] [place] [address] 85176- 7128 12 Sep, 2016 [place] [id number] [place] [address] 92670- 6936 Sep, [facility] [id number] [place] [address] 63759 -5939 August, Xeroderma Q80.9 [place] [id number] [place] [address] 71810- 4931 August, Dementia without behavioral disturbance, unspecified dementia type F03.90 [place] [id number] [place] [address] 60896- 2343 August, Chronic pain syndrome G89.4 [facility] [id number] [place] [address] 74177- 4029 August, [facility] [id number] [place] [address] 87976- 3868 August, Hyperlipidemia E78.5 ; Other fatigue R53.83 and Other specified hypotension I95.89 [facility] [address] [place] [address] 47748 -3386 August, Dysuria R30.0 ; Other fatigue R53.83 and Other specified hypotension I95.89 [facility] [id number] [place] [address] 79422- 7058 August, [facility] [id number] [place] [address] 85020- 6704 Jul, Pain in left knee M25.562 and Gastroenteritis K52.9 [place] [address] 76375- 0441 Jul, [facility] [id number] [place] [address] 45930- 5331 Jul, Di[address] R19.[address] [facility] [address] 05693 -3343 Jul, Spider bite, accidental or unintentional, initial encounter T63.301A [place] [id number] [place] [address] 90994- 4677 Jul, Primary osteoarthritis of right knee M17.11 and Arthritis M19.90 [place] [id number] [place] [address] 15196- 4726 Jul, Generalized anxiety disorder F41.1 and Major depressive disorder, recurrent episode, moderate F33.1 [place] [id number] [place] [address] 94021- 8747 Jul, Type 2 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 and Temporal headache R51 [place] [id number] [place] [address] 00630- 0367 Jul, Back pain M54.9 [facility] [id number] [place] [address] 41748- 2870 Jul, [place] [id number] [place] [address] 34961- 5823 Jul, [facility] [id number] [place] [address] 92037- 4658 Jun, Nausea R11.0 [facility] [id number] [place] [address] 09559 -6206 Jun, Acute suppurative otitis media of both ears without spontaneous rupture of tympanic membranes, recurrence not specified H66.003 and COPD exacerbation J44.1 [place] [id number] [place] [address] 28671- 4208 Jun, Generalized anxiety disorder F41.1 [place] [address] 92343- 0189 16 Jun, 2016 [facility] [place] [address] 48463 -3056 Jun, [facility] [place] [address] 04004 -4160 Jun, Shortness of breath R06.02 and COPD exacerbation J44.1 [place] [address] 33945- 0023 Jun, Eczema, unspecified type L30.9 [place] [address] 79639- 2117 Jun, [place] [address] 98038- 3789 May, [place] [address] 10009- 8684 May, Muscle cramping R25.2 [place] [address] 88784- 3887 May, [place] [address] 39327- 8029 Apr, Diarrhea R19.7 [place] [address] 47588- 4148 Apr, [place] [address] 10874- 6235 Apr, Chronic pain syndrome G89.4 [place] [address] 53114- 8021 16 Apr, 2016 Cramp of both lower extremities R25.2 and Vascular dementia without behavioral disturbance F01.50 [place] [address] 21189- 0451 Apr, Type 2 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 and Cigarette nicotine dependence without complication F17.210 [place] [address] 26274- 4153 Mar, Generalized anxiety disorder F41.1 [place] [address] 82373- 7939 Feb, Generalized anxiety disorder F41.1 and Major depressive disorder, recurrent episode, moderate F33.1 [place] [address] 45596- 4237 Feb, [facility] [address] 44532 -1810 Feb, Dysuria R30.0 and Acute cystitis with hematuria N30.01 [place] [address] 35824- 6910 Jan, [place] [address] 53762- 9423 Jan, [place] [address] 22022- 2286 Jan, [place] [address] [address] [address]- [address] Jan, [facility] [address] [address] 10 Jan, 2016 Wasp sting, accidental or unintentional, initial encounter T63.461A [place] [address] 78611- 2138 06 Jan, 2016 Encounter for immunization Z23 [place] [address] 47470- 8423 Jan, [facility] [address] [id number] [place] [address] 00947- 6225 Jan, [facility] [id number] [place] [address] 49534- 5715 28 Dec, 2015 Generalized anxiety disorder F41.1 and Major depressive disorder, recurrent episode, moderate F33.1 [facility] [address] [id number] [place] [address] 58119- 4019 21 Dec, 2015 Routine gynecological examination Z01.419 ; Postmenopausal Z78.0 ; Screening breast examination Z12.39 ; Osteopenia M85.80 and Breast cancer screening Z12.39 [place] [address] [id number] [place] [address] 23338- 3661 20 Dec, 2015 [facility] [address] [id number] [place] [address] 07630- 7898 19 Dec, 2015 [facility] [id number] [place] [address] 28921- 8969 16 Dec, 2015 [facility] [id number] [place] [address] 48449- 9356 16 Dec, 2015 [facility] [address] [id number] [place] [address] 26171- 1381 14 Dec, 2015 [facility] [id number] [place] [address] 84240- 1623 Dec, [facility] [id number] [place] [address] 79463- 0069 Nov, [facility] [address] [address] Nov, Cough R05 ; Other viral agents as the cause of diseases classified elsewhere B97.89 and Acute upper respiratory infection, unspecified J06.9 [facility] [address] [address]- 8823 Nov, [facility] [id number] [address]- 8331 Nov, [facility] [address] [address]- 6913 Nov, [facility] [address] [address]- 1443 Nov, [facility] [address] [address]- 7153 Nov, [facility] [address] [address]- 1210 Oct, [facility] [id number] [place] [address] 62017- 5973 Oct, [facility] [address] [address]- 0917 Oct, [facility] [id number] [place] [address] 31714- 0362 Oct, Chronic pain syndrome G89.4 [facility] [address] [address]- 5858 Sep, Generalized anxiety disorder F41.1 and Major depressive disorder, recurrent episode, moderate F33.1 [facility] [address] [address]- 5072 Sep, [facility] [address] [address]- 1706 Sep, [facility] [address] [address]- 5530 14 Sep, 2015 Generalized anxiety disorder F41.1 [facility] [address] [address]- 0305 13 Sep, 2015 Cramp of both lower extremities R25.2 and Cervicalgia M54.2 [facility] [address] [address]- 6576 06 Sep, 2015 Generalized anxiety disorder F41.1 [facility] [id number] [place] [address] 43576- 4569 Sep, [facility] [address] [id number] [place] [address] 20874 -7855 August, Rash R21 ; Itching L29.9 and Allergic response, subsequent encounter T78.40XD [place] [address] [id number] [place] [address] 54737- 2632 August, Primary insomnia F51.01 [facility] [id number] [place] [address] 71175 -9599 August, Rash R21 ; Itching L29.9 and Allergic response, initial encounter T78.40XA [place] [address] [id number] [place] [address] 49606- 9570 August, [place] [address] [place] [id number] [place] [address] 84003- 4863 August, Cramp of both lower extremities R25.2 [place] [address] [place] [id number] [place] [address] 58732- 1079 August, Back pain M54.9 [place] [address] [place] [id number] [place] [address] 59357- 9721 August, [place] [address] [place] [id number] [place] [address] 59034- 7952 August, [facility] [id number] [place] [address] 49841 -1576 August, Cramp of both lower extremities R25.2 [place] [address] [place] [id number] [place] [address] 16583- 1795 August, [place] [address] [place] [id number] [place] [address] 30763- 3416 August, Syncope R55 ; Paroxysmal atrial fibrillation I48.0 ; Dementia without behavioral disturbance, unspecified dementia type F03.90 and Chronic pain syndrome G89.4 [place] [address] [place] [id number] [place] [address] 70373- 0852 August, Type 2 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 and Syncope R55 [facility] [id number] [place] [address] 50927- 4926 Jul, [facility] [id number] [place] [address] 57973- 4049 Jul, [facility] [id number] [place] [address] 56493- 8128 Jul, [facility] [id number] [place] [address] 45418- 5555 Jul, [facility] [id number] [place] [address] 80788- 0405 Jul, [facility] [id number] [place] [address] 68504- 6323 Jul, UTI (urinary tract infection) N39.0 [facility] [id number] [place] [address] 49384- 9844 Jul, [facility] [id number] [place] [address] 33895- 8311 Jul, Major depressive disorder, recurrent episode, moderate F33.1 and Generalized anxiety disorder F41.1 [facility] [id number] [place] [address] 62067- 5341 Jul, Generalized anxiety disorder F41.1 [facility] [id number] [place] [address] 55375- 9790 Jul, Diarrhea R19.7 [facility] [id number] [place] [address] 39376 2546 Jul, [facility] [id number] [place] [address] 24264- 2645 Jun, [facility] [id number] [place] [address] 57326- 6516 Jun, Eczema L30.9 [facility] [address] [facility] [id number] [address] 2546 Jun, [facility] [address] [address]- 1126 Jun, COPD (chronic obstructive pulmonary disease) J44.9 [facility] [address] [address] 2546 Jun, [facility] [address] [address] 2546 Jun, Major depressive disorder, recurrent episode, moderate F33.1 and Generalized anxiety disorder F41.1 [facility] [address] [address]- 3106 May, [facility] [address] [address]- 6666 May, UTI (urinary tract infection) N39.0 [facility] [address] [address] 2546 May, [facility] [address] [address]- 0436 May, [facility] [address] [address] 2546 May, [facility] [address] [address] 2546 May, [facility] [address] [address] 2546 Apr, Major depressive disorder, recurrent episode, moderate F33.1 and Generalized anxiety disorder F41.1 [facility] [address] [address]- 3296 Apr, COPD (chronic obstructive pulmonary disease) J44.9 [facility] [address] [address] 2546 Apr, [facility] [address] [address]- 8546 Apr, Atrial flutter I48.92 [facility] [id number] [place] [address] 95379- 8146 Apr, [facility] [id number] [place] [address] 04149- 6151 Apr, [facility] [id number] [place] [address] 97814- 6691 Mar, [facility] [id number] [place] [address] 69188- 9509 Mar, [facility] [id number] [place] [address] 14363- 0835 Mar, [facility] [id number] [place] [address] 68499- 5677 Mar, Hyperlipidemia E78.5 ; Type 2 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 ; Major depressive disorder, recurrent episode, moderate F33.1 and Chronic pain syndrome G89.4 [facility] [id number] [place] [address] 67243- 2458 Mar, [facility] [id number] [place] [address] 05377- 0040 Mar, [facility] [id number] [place] [address] 91038- 3082 Mar, [facility] [id number] [place] [address] 77387- 8961 Mar, [facility] [id number] [place] [address] 96682- 9959 Feb, COPD (chronic obstructive pulmonary disease) J44.9 and Back pain M54.9 [facility] [address] [address]- 9395 Feb, [facility] [id number] [place] [address] 40749- 0739 Feb, [facility] [address] [address]- 5010 Feb, [facility] [id number] [place] [address] 37437- 3120 Feb, [facility] [id number] [address]- 4524 Feb, [facility] [id number] [place] [address] 39801- 5750 Feb, [facility] [id number] [place] [address] 33412- 9770 Feb, [facility] [id number] [place] [address] 89807- 2201 Feb, [facility] [id number] [place] [address] 57257- 6231 Feb, Diabetes E11.9 ; Back pain M54.9 and COPD (chronic obstructive pulmonary disease) J44.9 [facility] [id number] [place] [address] 14099- 7568 Jan, [facility] [id number] [place] [address] 29250- 9922 Jan, Major depression, recurrent F33.9 and Generalized anxiety disorder F41.1 [facility] [id number] [place] [address] 11867- 0101 Jan, Chronic pain G89.29 [facility] [address] [address]- 2841 Jan, [facility] [id number] [place] [address] 49611- 4723 Jan, [facility] [address] [address]- 4148 Jan, [facility] [id number] [place] [address] 15179- 6095 Jan, [facility] [id number] [place] [address] 25395- 0037 Jan, Nicotine dependence F17.200 [facility] [id number] [place] [address] 06262- 3798 Jan, Nicotine dependence F17.200 and Back pain M54.9 [facility] [id number] [place] [address] 99745- 2916 Jan, [facility] [id number] [place] [address] 00756- 7841 28 Dec, 2014 [facility] [id number] [place] [address] 65043- 7975 25 Dec, 2014 Anxiety, generalized 300.02 and Major depression, recurrent 296.30 [facility] [id number] [place] [address] 61914- 1771 24 Dec, 2014 [facility] [id number] [place] [address] 02055- 6020 21 Dec, 2014 [facility] [id number] [place] [address] 42429- 8294 17 Dec, 2014 [facility] [id number] [place] [address] 68135- 0205 15 Dec, 2014 [facility] [id number] [place] [address] 31493- 0713 14 Dec, 2014 [facility] [id number] [place] [address] 99566- 2140 11 Dec, 2014 [facility] [id number] [place] [address] 31666- 1562 10 Dec, 2014 [facility] [id number] [place] [address] 30686- 0306 08 Dec, 2014 Skin tear 879.8 [facility] [id number] [place] [address] 70731- 9919 08 Dec, 2014 Routine gynecological examination V72.31 ; Breast cancer screening V76.10 and Family history of breast cancer in first degree relative V16.3 [facility] [address] [address]- 6266 Dec, [facility] [id number] [place] [address] 97064- 4783 Dec, [facility] [id number] [place] [address] 67129- 0944 Nov, [facility] [id number] [place] [address] 57427- 7116 Nov, [facility] [id number] [place] [address] 45806- 2395 Nov, Poor balance 781.99 and Vascular dementia, uncomplicated 290.40 [facility] [id number] [place] [address] 13297- 4139 Nov, [facility] [id number] [place] [address] 58542- 6725 Nov, Major depression, recurrent 296.30 and Anxiety, generalized 300.02 [facility] [id number] [place] [address] 74989- 2655 Nov, [facility] [id number] [place] [address] 26534- 5056 Nov, [facility] [id number] [place] [address] 29555- 2837 Nov, [facility] [id number] [place] [address] 14304- 4014 Nov, [facility] [id number] [place] [address] 48573- 2632 Nov, Vascular dementia, uncomplicated 290.40 and Lumbago 724.2 [facility] [id number] [place] [address] 90351- 7020 Nov, [facility] [id number] [place] [address] 67616- 6687 Nov, [facility] [address] [address]- 3502 Nov, [facility] [address] [address]- 6808 Oct, [facility] [address] [address]- 4681 Oct, [facility] [id number] [address]- 5516 Oct, [facility] [address] [address]- 7200 Oct, COPD (chronic obstructive pulmonary disease) 496 and Hyperlipidemia 272.4 [facility] [address] [address]- 0248 Oct, Major depression, recurrent 296.30 and Anxiety, generalized 300.02 [facility] [address] [address]- 4682 Oct, [facility] [address] [address]- 4913 Oct, [facility] [address] [address]- 4894 Oct, [facility] [address] [address]- 1282 Sep, Lumbago 724.2 and Anxiety state, unspecified 300.00 [facility] [address] [address]- 2915 Sep, [facility] [address] [address]- 2010 Sep, [facility] [id number] [address]- 1159 August, [facility] [id number] [address]- 1432 August, Major depression, recurrent 296.30 ; Anxiety, generalized 300.02 and No condition on [place] II V71.09 [facility] [address] [place] [address]- 8384 August, [facility] [address] [facility] [id number] [place] [address]- 4536 August, [facility] [address] [place] [address]- 4627 Jul, [facility] [address] [facility] [id number] [place] [address]- 3060 Jul, [facility] [id number] [place] [address], [place] [address]- 8706 Jul, [facility] [id number] [place] [address]- 3682 Jun, [facility] [id number] [place] [address]- 0648 Jun, [facility] [id number] [address]- 0248 Jun, [facility] [address] [place] [address]- 7533 27 Jun, 2014 [facility] [id number] [address]- 4127 Jun, [facility] [address] [place] [address]- 6968 Jun, [facility] [id number] [address]- 3490 23 Jun, 2014 [facility] [address]- 6321 17 Jun, 2014 [facility] [address] [facility] [id number] [place] [address]- 6356 Jun, [facility] [address] 6750 Jun, [facility] [place] [facility] [address] [id number] [place] [address]- 5126 10 Jun, 2014 [facility] [place] [facility] [address] [id number] [place] [address]- 0666 10 Jun, 2014 [facility] [place] [facility] [address] [id number] [place] [address]- 0102 07 Jun, 2014 [facility] [place] [facility] [address] [id number] [place] [address]- 3414 07 Jun, 2014 [facility] [place] [facility] [address] [id number] [place] [address]- 7219 02 Jun, 2014 [facility] [place] [facility] [address] [id number] [place] [address]- 1765 02 Jun, 2014 [facility] [place] [facility] [address] [facility] [id number] [place] [address]- 4974 23 May, 2014 [facility] [place] [facility] [address] [id number] [place] [address]- 9202 23 May, 2014 [facility] [place] [facility] [address] [id number] [place] [address]- 2827 20 May, 2014 [facility] [place] [facility] [address] [facility] [id number] [place] [address]- 9707 May, 2014 [facility] [place] [facility] [address] [facility] [id number] [place] [address]- 3553 May, 2014 [facility] [place] [facility] [address] [id number] [place] [address]- 9273 May, 2014 [facility] [place] [facility] [address] [id number] [place] [address]- 9584 19 May, 2014 [facility] [place] [facility] [address] [facility] [id number] [place] [address]- 4667 12 May, 2014 [facility] [place] [facility] [address] [facility] [id number] [place] [address]- 3761 11 May, 2014 [facility] [place] [facility] [address] [facility] [id number] [place] [address]- 1637 May, 2014 [facility] [place] [facility] [address] [id number] [place] [address]- 1801 May, 2014 [facility] [place] [facility] [address] [id number] [place] [address]- 2846 May, 2014 [facility] [place] [facility] [address] [id number] [place] [address]- 5456 May, 2014 [facility] [place] [facility] [address] [id number] [place] [address]- 7987 May, [facility] [place] [facility] [address] [id number] [place] [address] Apr, [facility] [place] [facility] [address] [id number] [place] [address] Apr, [facility] [place] [facility] [address] [id number] [place] [address] Apr, [facility] [place] [facility] [address] [id number] [place] [address] Apr, [facility] [place] [facility] [address] [id number] [place] [address] Apr, [facility] [place] [facility] [address] [id number] [place] [address] Apr, [facility] [place] [facility] [address] [id number] [place] [address] Apr, [facility] [place] [facility] [address] [id number] [place] [address] Apr, [facility] [place] [facility] [address] [id number] [place] [address] Apr, [facility] [place] [facility] [address] [id number] [place] [address] Apr, [facility] [place] [facility] [address] [id number] [place] [address] Apr, [facility] [place] [facility] [address] [id number] [place] [address] Apr, [facility] [place] [facility] [address] [id number] [place] [address] Mar, [facility] [place] [facility] [address] [id number] [place] [address] Mar, [facility] [place] [facility] [address] [id number] [place] [address] 30 Mar, 2014 [facility] [place] [facility] [address] [id number] [place] [address] 30 Mar, 2014 [facility] [place] [facility] [address] [id number] [place] [address] Mar, [facility] [place] [facility] [address] [id number] [place] [address] Mar, [facility] [place] [facility] [address] [id number] [place] [address] Mar, [facility] [place] [facility] [address] [id number] [place] [address] 19 Mar, 2014 [facility] [place] [facility] [address] [id number] [place] [address] 15 Mar, 2014 [facility] [place] [facility] [address] [id number] [place] [address] 15 Mar, 2014 [facility] [place] [facility] [address] [id number] [place] [address] 15 Mar, 2014 [facility] [place] [facility] [address] [id number] [place] [address] 15 Mar, 2014 [facility] [place] [facility] [address] [id number] [place] [address] 15 Mar, 2014 [facility] [place] [facility] [address] [id number] [place] [address] 15 Mar, 2014 [facility] [place] [facility] [address] [id number] [place] [address] Mar, [facility] [place] [facility] [address] [id number] [place] [address] Mar, [facility] [place] [facility] [address] [id number] [id number] [address] Mar, [facility] [place] [facility] [address] [address] [id number] [place] [address] Mar, [facility] [place] [facility] [address] [id number] [place] [address] 7790 Mar, [facility] [place] [facility] [address] [id number] [place] [address] 8087 Mar, [facility] [place] [facility] [address] [id number] [place] [address] 4756 Feb, [facility] [place] [facility] [address] [id number] [place] [address] 6264 Feb, [facility] [place] [facility] [address] [id number] [place] [address] 1631 Feb, [facility] [place] [facility] [address] [id number] [place] [address] 4100 Feb, [facility] [place] [facility] [address] [facility] [id number] [place] [address]- 9844 Feb, [facility] [place] [facility] [address] [id number] [place] [address] 8061 Feb, [facility] [place] [facility] [address] [id number] [place] [address]- 5771 Feb, [facility] [place] [facility] [address] [id number] [place] [address] 9001 Feb, [facility] [place] [facility] [address] [id number] [place] [address] 7056 Feb, [facility] [place] [facility] [address] [id number] [place] [address]- 7321 Feb, [facility] [place] [facility] [address] [id number] [place] [address]- 3979 Feb, [facility] [place] [facility] [address] [id number] [place] [address]- 7197 Feb, [facility] [place] [facility] [address] [id number] [place] [address]- 0727 Feb, [facility] [place] [facility] [address] [id number] [place] [address]- 8189 Feb, [facility] [place] [facility] [address] [id number] [place] [address]- 4752 Feb, [facility] [place] [facility] [address] [id number] [place] [address]- 0780 Feb, [facility] [place] [facility] [address] [id number] [place] [address]- 0006 Feb, [facility] [place] [facility] [address] [id number] [place] [address]- 3479 Jan, [facility] [place] [facility] [address] [id number] [place] [address]- 3509 Jan, [facility] [place] [facility] [address] [id number] [place] [address]- 0715 Jan, [facility] [place] [facility] [address] [id number] [place] [address] 1931 Jan, [facility] [place] [facility] [address] [id number] [place] [address]- 2934 Jan, [facility] [place] [facility] [address] [id number] [place] [address]- 3747 Jan, [facility] [place] [facility] [address] [id number] [place] [address]- 3301 Jan, [facility] [place] [facility] [address] [id number] [place] [address]- 9189 Jan, [facility] [place] [facility] [address] [id number] [place] [address]- 0481 Jan, [facility] [place] [facility] [address] [id number] [place] [address]- 6740 Jan, [facility] [place] [facility] [address] [id number] [place] [address] Jan, [facility] [place] [facility] [address] [id number] [place] [address]- 1771 Dec, [facility] [place] [facility] [address] [id number] [place] [address]- 1026 Dec, [facility] [place] [facility] [address] [id number] [place] [address]- 7685 Nov, [facility] [place] [facility] [address] [id number] [place] [address]- 1522 Nov, [facility] [place] [facility] [address] [id number] [place] [address]- 2742 Nov, [facility] [place] [facility] [address] [id number] [place] [address]- 9765 Nov, [facility] [place] [facility] [address] [id number] [place] [address]- 7631 Nov, [facility] [place] [facility] [address] [id number] [place] [address]- 7431 Nov, [facility] [place] [facility] [address] [id number] [place] [address]- 5890 Nov, [facility] [place] [facility] [address] [id number] [place] [address]- 2473 Oct, [facility] [place] [facility] [address] [id number] [place] [address]- 4028 Oct, [facility] [place] [facility] [address] [id number] [place] [address]- 0732 Oct, [facility] [place] [facility] [address] [id number] [place] [address]- 5555 Oct, [facility] [place] [facility] [address] [id number] [place] [address]- 9816 30 Sep, 2013 [facility] [place] [facility] [address] [id number] [place] [address]- 0994 30 Sep, 2013 [facility] [place] [facility] [address] [id number] [place] [address]- 4146 Sep, [facility] [place] [facility] [address] [id number] [place] [address]- 9716 Sep, [facility] [place] [facility] [address] [id number] [place] [address]- 9632 Sep, [facility] [place] [facility] [address] [id number] [place] [address]- 9712 Sep, [facility] [place] [facility] [address] [id number] [place] [address]- 4712 Sep, [facility] [place] [facility] [address] [id number] [place] [address]- 6341 Sep, [facility] [place] [facility] [address] [id number] [place] [address]- 5091 Sep, [facility] [place] [facility] [address] [id number] [place] [address]- 1949 Sep, [facility] [place] [facility] [address] [id number] [place] [address]- 5365 Sep, [facility] [place] [facility] [address] [id number] [place] [address]- 5430 Sep, [facility] [place] [facility] [address] [id number] [place] [address]- 5594 Sep, [facility] [place] [facility] [address] [id number] [place] [address]- 3216 Sep, [facility] [place] [facility] [address] [id number] [place] [address]- 6214 August, [facility] [place] [facility] [address] [id number] [place] [address] 7809 August, [facility] [address] [id number] [place] [address] 6655 August, [facility] [place] [facility] [address] [id number] [place] [address]- 6082 August, [facility] [place] [facility] [address] [id number] [place] [address]- 0743 August, [facility] [place] [facility] [address] [id number] [place] [address]- 4061 August, [facility] [place] [facility] [address] [id number] [place] [address]- 6974 August, [facility] [place] [facility] [address] [id number] [place] [address]- 8525 August, [facility] [place] [facility] [address] [id number] [place] [address]- 0719 August, [facility] [place] [facility] [address] [id number] [place] [address]- 7090 August, [facility] [place] [facility] [address] [id number] [place] [address]- 2933 August, [facility] [place] [facility] [address] [id number] [place] [address]- 2035 August, [facility] [place] [facility] [address] [id number] [place] [address]- 9143 August, [facility] [place] [facility] [address] [id number] [place] [address]- 1422 August, [facility] [place] [facility] [address] [id number] [place] [address]- 5494 August, [facility] [place] [facility] [address] [id number] [place] [address]- 5694 August, [facility] [place] [facility] [address] [id number] [place] [address]- 0839 August, [facility] [place] [facility] [address] [id number] [place] [address]- 5256 August, [facility] [place] [facility] [address] [id number] [place] [address]- 6595 August, [facility] [place] [facility] [address] [id number] [place] [address]- 7035 Jul, [facility] [place] [facility] [address] [id number] [place] [address]- 9301 Jul, [facility] [place] [facility] [address] [id number] [place] [address]- 8055 Jul, [facility] [place] [facility] [address] [id number] [place] [address]- 9843 Jul, [facility] [place] [facility] [address] [id number] [place] [address]- 2675 Jun, [facility] [place] [facility] [address] [id number] [place] [address]- 0617 Jun, [facility] [place] [facility] [address] [id number] [place] [address]- 5168 Jun, [facility] [place] [facility] [address] [id number] [place] [address]- 4278 Jun, [facility] [place] [facility] [address] [id number] [place] [address]- 1988 Jun, [facility] [place] [facility] [address] [id number] [place] [address]- 1679 Jun, [facility] [place] [facility] [address] [id number] [place] [address]- 4127 Jun, [facility] [place] [facility] [address] [id number] [place] [address]- 6703 Jun, [facility] [place] [facility] [address] [id number] [place] [address]- 0243 Jun, [facility] [place] [facility] [address] [id number] [place] [address]- 4744 Jun, [facility] [place] [facility] [address] [id number] [place] [address]- 5861 May, [facility] [place] [facility] [address] [id number] [place] [address]- 0586 May, [facility] [place] [facility] [address] [id number] [place] [address]- 1376 May, [facility] [place] [facility] [address] [facility] [id number] [place] [address]- 3907 May, [facility] [place] [facility] [address] [id number] [place] [address]- 8575 May, [facility] [place] [facility] [address] [id number] [place] [address]- 9856 May, [facility] [place] [facility] [address] [facility] [id number] [place] [address]- 6529 May, [facility] [place] [facility] [address] [id number] [place] [address]- 8171 May, [facility] [place] [facility] [address] [facility] [id number] [place] [address]- 9454 May, [facility] [place] [facility] [address] [facility] [id number] [place] [address]- 0071 May, [facility] [place] [facility] [address] [facility] [id number] [place] [address]- 2046 18 May, 2013 [facility] [place] [facility] [address] [facility] [id number] [place] [address]- 2544 17 May, 2013 [facility] [place] [facility] [address] [facility] [id number] [place] [address]- 6243 May, [facility] [place] [facility] [address] [facility] [id number] [place] [address]- 7629 May, [facility] [place] [facility] [address] [facility] [id number] [place] [address]- 0745 10 May, 2013 [facility] [place] [facility] [address] [facility] [id number] [place] [address]- 2546 07 May, 2013 [facility] [address] [id number] [place] [address]- 6186 07 May, 2013 [facility] [address] [id number] [place] [address]- 2546 Apr, [facility] [address] [id number] [place] [address]- 2546 Apr, [facility] [address] [id number] [place] [address]- 2546 Apr, [facility] [address] [id number] [place] [address]- 8036 Apr, [facility] [address] [id number] [place] [address]- 7596 Apr, [facility] [address] [id number] [place] [address]- 4707 Apr, [facility] [address] [id number] [place] [address]- 3045 Apr, [facility] [address] [id number] [place] [address]- 8229 Mar, [facility] [address] [id number] [place] [address]- 7991 Mar, [facility] [address] [id number] [place] [address]- 2546 Mar, [facility] [address] [id number] [place] [address]- 2546 Mar, [facility] [place] [facility] [address] [id number] [place] [address]- 2546 Mar, [facility] [address] [id number] [place] [address]- 2546 Mar, [facility] [address] [id number] [place] [address]- 7901 Mar, [facility] [place] [facility] [address] [id number] [place] [address]- 7718 Mar, [facility] [place] [facility] [address] [id number] [place] [address]- 4047 Mar, [facility] [place] [facility] [address] [id number] [place] [address]- 1124 Mar, [facility] [place] [facility] [address] [id number] [place] [address]- 4514 Mar, [facility] [place] [facility] [address] [id number] [place] [address]- 5638 Feb, [facility] [place] [facility] [address] [id number] [place] [address]- 0897 Feb, [facility] [place] [facility] [address] [id number] [place] [address]- 1362 Feb, [facility] [place] [facility] [address] [id number] [place] [address]- 0165 20 Feb, 2013 [facility] [place] [facility] [address] [id number] [place] [address]- 1889 Feb, [facility] [place] [facility] [address] [id number] [address] 9508 19 Feb, 2013 [facility] [place] [facility] [address] [id number] [place] [address]- 4647 15 Feb, 2013 [facility] [place] [facility] [address] [id number] [place] [address]- 3253 14 Feb, 2013 [facility] [place] [facility] [address] [id number] [place] [address]- 4001 14 Feb, 2013 [facility] [place] [facility] [address] [id number] [place] [address]- 8583 13 Feb, 2013 [facility] [place] [facility] [address] [id number] [place] [address]- 6633 13 Feb, 2013 [facility] [place] [facility] [address] [id number] [place] [address]- 6884 Feb, [facility] [place] [facility] [address] [id number] [place] [address]- 2458 Feb, [facility] [place] [facility] [address] [id number] [place] [address]- 1069 Feb, [facility] [place] [facility] [address] [id number] [place] [address]- 2281 Feb, [facility] [place] [facility] [address] [id number] [place] [address]- 3319 Feb, [facility] [place] [facility] [address] [id number] [place] [address]- 0992 Jan, [facility] [place] [facility] [address] [id number] [place] [address]- 2453 Jan, [facility] [place] [facility] [address] [id number] [place] [address]- 5330 Jan, [facility] [place] [facility] [address] [id number] [place] [address]- 5881 Jan, [facility] [place] [facility] [address] [id number] [place] [address]- 7194 Jan, [facility] [place] [facility] [address] [id number] [place] [address]- 2677 Jan, [facility] [place] [facility] [address] [id number] [place] [address]- 3316 Jan, [facility] [place] [facility] [address] [id number] [place] [address]- 2144 Jan, [facility] [place] [facility] [address] [id number] [place] [address]- 0829 10 Jan, 2013 [facility] [place] [facility] [address] [id number] [place] [address]- 7058 27 Dec, 2012 [facility] [place] [facility] [address] [id number] [place] [address]- 3769 20 Dec, 2012 [facility] [place] [facility] [address] [id number] [place] [address]- 9052 19 Dec, 2012 [facility] [place] [facility] [address] [id number] [place] [address]- 8716 10 Dec, 2012 [facility] [place] [facility] [address] [id number] [place] [address] 2546 04 Dec, 2012 [facility] [place] [facility] [address] [id number] [place] [address] 2546 03 Dec, 2012 [facility] [place] [facility] [address] [id number] [place] [address] 2540 Nov, [facility] [place] [facility] [address] [id number] [place] [address]- 9494 Nov, [facility] [place] [facility] [address] [id number] [place] [address]- 0412 Nov, [facility] [place] [facility] [address] [id number] [place] [address]- 9847 Nov, [facility] [place] [facility] [address] [id number] [place] [address]- 0255 Nov, [facility] [place] [facility] [address] [id number] [place] [address]- 9447 Nov, [facility] [place] [facility] [address] [id number] [place] [address]- 4552 Nov, [facility] [place] [facility] [address] [id number] [place] [address]- 2549 Nov, [facility] [place] [facility] [address] [id number] [place] [address]- 2548 14 Nov, 2012 [facility] [place] [facility] [address] [id number] [place] [address]- 2541 Nov, [facility] [place] [facility] [address] [id number] [place] [address]- 2548 17 Oct, 2012 [facility] [place] [facility] [address] [id number] [place] [address]- 5651 Oct, [facility] [place] [facility] [address] [id number] [place] [address]- 3332 Oct, [facility] [place] [facility] [address] [id number] [place] [address]- 3871 Oct, [facility] [place] [facility] [address] [id number] [place] [address]- 8119 Oct, [facility] [place] [facility] [address] [id number] [place] [address]- 9443 Oct, [facility] [place] [facility] [address] [id number] [place] [address]- 2003 Oct, [facility] [place] [facility] [address] [id number] [place] [address]- 3130 Oct, [facility] [place] [facility] [address] [id number] [place] [address]- 0483 Sep, [facility] [place] [facility] [address] [id number] [place] [address]- 7243 Sep, [facility] [place] [facility] [address] [id number] [place] [address]- 6519 Sep, [facility] [place] [facility] [address] [id number] [place] [address]- 3873 Sep, [facility] [place] [facility] [address] [id number] [place] [address]- 3750 Sep, [facility] [place] [facility] [address] [id number] [place] [address]- 9863 Sep, [facility] [place] [facility] [address] [id number] [place] [address]- 2374 Sep, [facility] [place] [facility] [address] [id number] [place] [address]- 6557 Sep, [facility] [place] [facility] [address] [id number] [place] [address]- 5211 August, [facility] [place] [facility] [address] [id number] [place] [address]- 4395 August, [facility] [address] [id number] [place] [address]- 5764 August, [facility] [address] [id number] [place] [address]- 5960 August, [facility] [address] [id number] [place] [address]- 7471 August, [facility] [address] [id number] [place] [address]- 8767 Jul, [facility] [address] [id number] [place] [address]- 3160 Jul, [facility] [address] [id number] [place] [address]- 6611 Jul, [facility] [address] [id number] [place] [address]- 7467 Jul, [facility] [address] [id number] [place] [address]- 5173 Jul, [facility] [address] [id number] [place] [address]- 6845 Jun, [facility] [address] [id number] [place] [address]- 5890 18 Jun, 2012 [facility] [address] [id number] [place] [address]- 6678 15 Jun, 2012 [facility] [address] [id number] [place] [address]- 6472 14 Jun, 2012 [facility] [address] [id number] [place] [address]- 2909 12 Jun, 2012 [facility] [address] [id number] [place] [address]- 2528 08 Jun, 2012 [facility] [address] [id number] [place] [address] 08 Jun, 2012 [facility] [address] [id number] [place] [address] Jun, [facility] [address] [id number] [place] [address] Jun, [facility] [address] [id number] [place] [address] May, [facility] [address] [id number] [place] [address] May, [facility] [address] [id number] [place] [address] May, [facility] [address] [id number] [place] [address] May, [facility] [address] [id number] [place] [address] Apr, [facility] [address] [id number] [place] [address] Apr, [facility] [address] [id number] [place] [address] Apr, [facility] [address] [id number] [place] [address] Apr, [facility] [address] [id number] [place] [address] Apr, [facility] [address] [id number] [place] [address] Apr, [facility] [address] [id number] [place] [address] Apr, [facility] [address] [id number] [place] [address] Mar, [facility] [address] [place] [id number] Mar, [facility] [address] [id number] [place] [address] Mar, [facility] [place] [facility] [address] [id number] [place] [address] Mar, [facility] [place] [facility] [address] [id number] [place] [address] Mar, [facility] [place] [facility] [address] [id number] [place] [address] Mar, [facility] [place] [facility] [address] [id number] [place] [address] Mar, [facility] [place] [facility] [address] [id number] [place] [address] Mar, [facility] [place] [facility] [address] [id number] [place] [address] Mar, [facility] [place] [facility] [address] [id number] [place] [address] Mar, [facility] [place] [facility] [address] [id number] [place] [address] Mar, [facility] [place] [facility] [address] [id number] [place] [address] Mar, [facility] [place] [facility] [address] [id number] [place] [address] Mar, [facility] [place] [facility] [address] [id number] [place] [address] 2765 Mar, [facility] [place] [facility] [address] [id number] [address] Mar, [facility] [place] [facility] [address] [id number] [place] [address] Mar, [facility] [place] [facility] [address] [id number] [place] [address] Mar, [facility] [place] [facility] [address] [id number] [place] [address] Feb, [facility] [place] [facility] [address] [id number] [place] [address] Feb, [facility] [place] [facility] [address] [id number] [place] [address] Feb, [facility] [place] [facility] [address] [id number] [place] [address] Feb, [facility] [place] [facility] [address] [id number] [place] [address] 235[address] Feb, [facility] [place] [facility] [address] [id number] [place] [address] Feb, [facility] [place] [facility] [address] [id number] [place] [address] 289[address] Feb, [facility] [place] [facility] [address] [id number] [place] [address] Feb, [facility] [place] [facility] [address] [id number] [place] [address]- [address] Feb, [facility] [place] [facility] [address] [id number] [place] [address]- [address] 16 Feb, 2012 [facility] [place] [facility] [address] [id number] [place] [address] 37[address] Feb, [facility] [place] [facility] [address] [id number] [place] [address]- [address] Feb, [facility] [place] [facility] [address] [id number] [place] [address]- [address] Feb, [facility] [place] [facility] [address] [id number] [place] [address] Feb, [facility] [place] [facility] [address] [id number] [place] [address]- 6[address] Feb, [facility] [place] [facility] [address] [id number] [place] [address]- 3473 Feb, [facility] [place] [facility] [address] [id number] [place] [address] Jan, [facility] [place] [facility] [address] [id number] [place] [address]- [address] Jan, 2011 [facility] [place] [facility] [address] [id number] [place] [address] Jan, [facility] [place] [facility] [address] [id number] [place] [address] 0[address] Jan, [facility] [place] [facility] [address] [id number] [place] [address] 79[address] Jan, [facility] [place] [facility] [address] [id number] [place] [address]- [address] Jan, [facility] [place] [facility] [address] [id number] [place] [address]- 7818 Jan, [facility] [place] [facility] [address] [id number] [place] [address]- 8480 Jan, [facility] [place] [facility] [address] [id number] [place] [address] Jan, [facility] [place] [facility] [address] [id number] [place] [address] Jan, [facility] [place] [facility] [address] [id number] [place] [address] Jan, [facility] [place] [facility] [address] [id number] [place] [address] Jan, [facility] [place] [facility] [address] [id number] [place] [address] Jan, [facility] [place] [facility] [address] [id number] [place] [address] Jan, [facility] [place] [facility] [address] [id number] [place] [address] Jan, [facility] [place] [facility] [address] [id number] [place] [address] Jan, [facility] [place] [facility] [address] [id number] [place] [address] 04 Jan, 2012 [facility] [place] [facility] [address] [id number] [place] [address] 21 Dec, 2011 [facility] [place] [facility] [address] [id number] [place] [address]46 20 Dec, 2011 [facility] [place] [facility] [address] [id number] [place] [address] 2546 18 Dec, 2011 [facility] [place] [facility] [address] [id number] [place] [address] 2546 18 Dec, 2011 [facility] [place] [facility] [address] [id number] [place] [address] 2546 10 Dec, 2011 [facility] [place] [facility] [address] [id number] [place] [address] 10 Dec, 2011 [facility] [place] [facility] [address] [id number] [place] [address] 10 Dec, 2011 [facility] [place] [facility] [address] [id number] [place] [address]378 07 Dec, 2011 [facility] [place] [facility] [address] [id number] [place] [address]36 30 Nov, 2011 [facility] [place] [facility] [address] [id number] [place] [address] Nov, [facility] [place] [facility] [address] [id number] [place] [address] 2548 Nov, [facility] [place] [facility] [address] [id number] [place] [address] 2546 Nov, [facility] [place] [facility] [address] [id number] [place] [address] 2546 Nov, [facility] [place] [facility] [address] [id number] [place] [address] 2541 16 Nov, 2011 [facility] [place] [facility] [address] [id number] [place] [address] 4279 30 Oct, 2011 [facility] [place] [facility] [address] [id number] [place] [address] 30 Oct, 2011 [facility] [place] [facility] [address] [id number] [place] [address]596 Oct, [facility] [place] [facility] [address] [id number] [place] [address] 4676 Oct, [facility] [place] [facility] [address] [id number] [place] [address] 0838 Oct, [facility] [place] [facility] [address] [id number] [place] [address] Oct, [facility] [place] [facility] [address] [id number] [place] [address] 1325 Oct, [facility] [place] [facility] [address] [id number] [place] [address] 0[address] Sep, [facility] [place] [facility] [address] [id number] [place] [address]- 4328 Sep, [facility] [place] [facility] [address] [id number] [place] [address] Sep, [facility] [place] [facility] [address] [id number] [place] [address]- 5668 Sep, [facility] [place] [facility] [address] [id number] [place] [address]- 1675 Sep, [facility] [place] [facility] [address] [id number] [place] [address]- 1108 15 Sep, 2011 [facility] [place] [facility] [address] [id number] [place] [address]- 2547 14 Sep, 2011 [facility] [place] [facility] [address] [id number] [place] [address]- 8507 11 Sep, 2011 [facility] [place] [facility] [address] [id number] [place] [address]- 6516 05 Sep, 2011 [facility] [place] [facility] [address] [id number] [place] [address] 48[address] Sep, [facility] [address] [id number] [place] [address] 6[address] August, [facility] [place] [facility] [address] [id number] [place] [address]- 0628 August, [facility] [address] [id number] [place] [address] 8391 August, [facility] [place] [facility] [address] [id number] [place] [address] August, [facility] [address] [id number] [place] [address]- 4728 August, [facility] [place] [facility] [address] [id number] [place] [address]- 8561 Jul, [facility] [place] [facility] [address] [id number] [place] [address]- 2809 Jul, [facility] [place] [facility] [address] [id number] [place] [address] 2043 Jul, [facility] [place] [facility] [address] [id number] [place] [address]- 2967 Jul, [facility] [place] [facility] [address] [id number] [place] [address]- 2882 Jul, [facility] [place] [facility] [address] [id number] [place] [address]- 3149 Jul, [facility] [place] [facility] [address] [id number] [place] [address]- 0540 Jul, [facility] [place] [facility] [address] [id number] [place] [address] 4102 Jun, [facility] [place] [facility] [address] [id number] [place] [address]- 3908 Jun, [facility] [place] [facility] [address] [id number] [place] [address]- 1454 Jun, [facility] [place] [facility] [address] [id number] [place] [address]- 3513 Jun, [facility] [place] [facility] [address] [id number] [place] [address]- 4800 Jun, [facility] [place] [facility] [address] [id number] [place] [address]- 7076 May, [facility] [place] [facility] [address] [id number] [place] [address]- 2746 May, [facility] [place] [facility] [address] [id number] [place] [address]- 6582 May, [facility] [place] [facility] [id number] [place] [address], [place] [address]- [address]321 May, [facility] [place] [facility] [address] [facility] [id number] [place] [address]- 0405 May, [facility] [place] [facility] [id number] [place] [address], [place] [address]- 9994 May, [facility] [place] [facility] [address] [id number] [place] [address]- 6264 Apr, [facility] [place] [facility] [id number] [place] [address] Mar, [facility] [place] [facility] [id number] [place] [address] 3695 Feb, [facility] [place] [facility] [address] [facility] [id number] [place] [address] 2548 Feb, [facility] [place] [facility] [address] [id number] [place] [address] 2541 Feb, [facility] [place] [facility] [address] [facility] [id number] [place] [address]- 8262 Feb, [facility] [place] [facility] [address] [facility] [id number] [place] [address]- 5528 Jan, [facility] [place] [facility] [address] [facility] [id number] [place] [address]- 2558 Jan, [facility] [place] [facility] [address] [id number] [place] [address]- 9921 26 Jan, 2011 [facility] [place] [facility] [address] [id number] [place] [address]- 2642 24 Jan, 2011 [facility] [place] [facility] [address] [id number] [place] [address]- 3931 14 Jan, 2011 [facility] [place] [facility] [address] [id number] [place] [address]- 0216 19 Dec, 2010 [facility] [place] [facility] [address] [id number] [place] [address]- 8481 Oct, [facility] [place] [facility] [address] [id number] [place] [address]- 2402 August, [facility] [place] [facility] [address] [id number] [place] [address]- 3641 29 Mar, 2010 [facility] [place] [facility] [address] [id number] [place] [address]- 5052 27 Mar, 2010 [facility] [place] [facility] [address] [id number] [place] [address]- 5639 16 Mar, 2010 [facility] [place] [facility] [address] [id number] [place] [address]- 5956 15 Mar, 2010 [facility] [place] [facility] [address] [id number] [place] [address]- 5906 15 Mar, 2010 [facility] [place] [facility] [address] [id number] [place] [address]- 8842 08 Mar, 2010 [facility] [place] [facility] [address] [id number] [place] [address]- 1496 03 Mar, 2010 [facility] [place] [facility] [address] [id number] [place] [address]- 9582 24 Feb, 2010 [facility] [place] [facility] [address] [id number] [place] [address]- 9655 24 Feb, 2010 [facility] [place] [facility] [address] [id number] [place] [address]- 2517 15 Feb, 2010 [facility] [place] [facility] [address] [id number] [place] [address]- 3609 19 Jan, 2010 [facility] [place] [facility] [address] [facility] [id number] [place] [address]- 7519 18 Jan, 2010 [facility] [place] [facility] [address] [facility] [id number] [place] [address]- 4746 18 Jan, 2010 [facility] [place] [facility] [address] [facility] [id number] [place] [address]- 0067 Nov, [facility] [place] [facility] [address] [facility] [id number] [place] [address]- 7617 14 Sep, 2009 [facility] [place] [facility] [address] [facility] [id number] [place] [address]- 8397 August, [facility] [place] [facility] [id number] [place] [address]- 5645 30 Mar, 2009 [facility] [place] [facility] [address] [facility] [id number] [place] [address]- 6577 Mar, [facility] [place] [facility] [address] [id number] [place] [address]- 8339 17 Feb, 2009 [facility] [place] [facility] [id number] [address]- 5073 10 Feb, 2009 [facility] [place] [facility] [address] [facility] [id number] [place] [address]- 4596 10 Feb, 2009 [facility] [place] [facility] [address] [facility] [id number] [place] [address]- 2901 10 Feb, 2009 [facility] [place] [facility] [address] [facility] [id number] [place] [address]- 3956 06 Feb, 2009 [facility] [place] [facility] [address] [facility] [id number] [place] [address]- 7343 27 Jan, 2009 [facility] [place] [facility] [address] [facility] [id number] [place] [address]- 6829 26 Jan, 2009 [facility] [place] [facility] [address] [id number] [place] [address]- 6759 Jan, [facility] [address] [id number] [place] [address]- 7418 Jan, [facility] [id number] [address]- 2846 Nov, [facility] [id number] [address]- 5975 Sep, [facility] [id number] [address]- 1761 August, [facility] [id number] [place] [address]- 9416 Jul, [facility] [address]65100[place] [address]- 7179 May, IMMUNIZATIONS No Known Immunizations SOCIAL HISTORY Never Assessed REASON FOR VISIT Controlled Med Refill PLAN OF CARE VITAL SIGNS MEDICATIONS Medication [...] Knee Surgery 07/16/17 Hospitalization History [facility] [place]- left hand/wrist swelling 10/09/2017
--- OUTSIDE RECORDS SUMMARY | 2018-01-01 11:47 | XMS REPORT ---
Author Author SENAIT DUNLAP [facility] Address [address] [place] [address] Care Team Providers Care Residential Leasing Manager Name Role Phone SENAIT DUNLAP Unavailable PROBLEMS Type Condition ICD9-CM Code BPK38-WD Code Onset Dates Condition Status SNOMED Code Problem History of common bile duct surgery Z98.89 Active 365565621 Problem Barretts esophagus K22.70 Active 570867207 Problem 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 Active 31529438 Problem Colon polyp K63.5 Active 69653478 Problem Bilateral low back pain without sciatica M54.5 Active 202748170 Problem Screening breast examination Z12.39 Active 532781847 Problem Postmenopausal Z78.0 Active 58832453 Problem Osteopenia M85.80 Active 951596714 Problem Cigarette nicotine dependence without complication F17.210 Active 99616874 Problem Type 2 diabetes mellitus with diabetic peripheral angiopathy without gangrene E11.51 Active 971071655 Problem Vascular dementia without behavioral disturbance F01.50 Active 72482362318323194 Problem Unspecified atherosclerosis of telida arteries of extremities, unspecified extremity I70.209 Active 218951947366219 Problem Arthritis M19.90 Active 5740596 Problem Chronic atrial fibrillation I48.2 Active 111609946 Problem Chronic obstructive pulmonary disease with acute lower respiratory infection J44.0 Active 401605439 Problem Other chronic pancreatitis K86.1 Active 356044388 Problem Stress incontinence of urine N39.3 Active 90150230 Problem Controlled type 2 diabetes mellitus without complication, without long -term current use of insulin E11.9 Active 459174596 Problem Unspecified psychosis F29 Active 83899204 Problem Xeroderma Q80.9 Active 08285711 Problem COPD (chronic obstructive pulmonary disease) J44.9 Active 83526407 Problem Dementia without behavioral disturbance, unspecified dementia type F03.90 Active 95351187 Problem Gastroparesis K31.84 Active 797185255 Problem Type 2 diabetes mellitus with diabetic neuropathy, without long-term current use of insulin E11.40 Active 62763523 Problem Osteoporosis M81.0 Active 05512385 Problem Atherosclerosis of telida artery of both lower extremities with intermittent claudication I70.213 Active 047024541303893 Problem Hyperlipidemia E78.5 Active 21383691 Problem Diabetic polyneuropathy associated with type 2 diabetes mellitus E11.42 Active 26088003 Problem Essential tremor G25.0 Active 75706783 Problem 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 Active 7308501596253 Problem Generalized anxiety disorder F41.1 Active 352115288 Problem Gastroesophageal reflux disease, esophagitis presence not specified K21.9 Active 182178488 Problem Coronary artery disease involving telida coronary artery of telida 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 I25.118 Active 1683232851489 Problem Postconcussion syndrome F07.81 Active 08195715 Problem Chronic pain syndrome G89.4 Active 849720554 Problem Migraine without aura and without status migrainosus, not intractable G43.009 Active 204204503 Problem Paroxysmal atrial fibrillation I48.0 Active 563179753 Problem Migraine without aura and with status migrainosus, not intractable G43.001 Active 957342265 Problem Cervicalgia M54.2 Active 2335804351935 Problem Acute exacerbation of chronic obstructive pulmonary disease (COPD) J44.1 Active 346128215 Problem Major depressive disorder, recurrent episode, moderate F33.1 Active 598862763 Problem Crohn''s disease without complication, unspecified gastrointestinal tract location K50.90 Active 45591116 Problem Chronic fatigue R53.82 Active 79961756 Problem Bipolar affective disorder, currently depressed, moderate F31.32 Active 738375773 ALLERGIES No Information ENCOUNTERS Encounter Location Date Diagnosis [place] [id number], [place] [address] Nov, [place] [address], [place] [address] Nov, Bronchitis J40 [facility] [id number], [place] [address] Oct, [place] [address], [place] [address] Oct, Bipolar affective disorder, currently depressed, moderate F31.32 ; Vascular dementia without behavioral disturbance F01.50 and Generalized anxiety disorder F41.1 [facility] [id number] [place] [address] 94771- 1554 Oct, [facility] [id number] [place] [address] 96664- 0979 Oct, [facility] [id number] [place] [address] 30559- 7389 Oct, Edema of both legs R60.0 [facility] [id number] [place] [address] 11680- 6712 Oct, [facility] [id number] [place] [address] 82325- 5467 Sep, [facility] [id number] [place] [address] 85657- 9924 Sep, [facility] [id number] [place] [address] 69438- 0112 Sep, [facility] [id number] [place] [address] 79384- 6660 Sep, Encounter for well woman exam with routine gynecological exam Z01.419 ; Screening for STDs (sexually transmitted diseases) Z11.3 ; Screening breast examination Z12.31 and Overweight (BMI 25.0-29.9) E66.3 [facility] [address] [place] [address] 47626- 0508 Sep, [facility] [id number] [place] [address] 42577- 7910 Sep, [facility] [id number] [place] [address] 47643- 1830 Sep, [facility] [id number] [place] [address] 05789- 8580 August, [facility] [address] [place] [address] 50583- 4740 August, [facility] [address], [place] [address] August, Type 2 diabetes mellitus with diabetic neuropathy, without long-term current use of insulin E11.40 and Sprain of right ankle, unspecified ligament, initial encounter S93.401A [facility] [id number] [place] [address] 07668- 7878 August, [facility] [id number] [place] [address] 51154- 6933 August, [facility] [id number] [place] [address] 38364- 9109 August, [facility] [id number] [place] [address] 06376- 5575 August, Gastroesophageal reflux disease, esophagitis presence not specified K21.9 [facility] [id number] [place] [address] 50660- 2728 August, [facility] [id number] [place] [address] 00868- 0593 August, [facility] [id number] [place] [address] 57458- 2179 August, [facility] [id number] [place] [address] 31303- 9745 August, Type 2 diabetes mellitus with diabetic neuropathy, without long-term current use of insulin E11.40 and Elevated liver enzymes R74.8 [facility] [id number], [place] [address] 239[address] Jul, [facility] [id number] [place] [address] 84017- 7003 Jul, Cough R05 [facility] [id number] [place] [address] 18700- 1676 Jul, [facility] [id number] [place] [address] 24877- 3149 Jul, [facility] [address] 23809- 5170 Jul, Bipolar affective disorder, currently depressed, moderate F31.32 ; Vascular dementia without behavioral disturbance F01.50 and Generalized anxiety disorder F41.1 [facility] [address] 70814- 4755 Jul, [facility] [address] 50967- 7589 Jul, Type 2 diabetes mellitus with diabetic neuropathy, without long-term current use of insulin E11.40 and Elevated liver enzymes R74.8 [place] [address] 16809- 3313 Jul, [facility] [address] 02593- 9571 Jul, [place] [address] 43128- 7054 Jul, [facility] [address] 80214- 8245 Jul, Post-menopausal Z78.0 [facility] [address] 66008- 2889 Jul, Stress incontinence of urine N39.3 [place] [id number] [place] [address] 73492- 3382 Jul, [facility] [address] 28959- 6742 Jul, [facility] [id number] [place] [address] 68922- 0726 Jul, Stress incontinence of urine N39.3 and Cough R05 [facility] [id number] [place] [address] 87678- 0243 Jul, [facility] [address] 26808- 3861 Jul, [facility] [address], [place] [address] 27[address] Jul, [facility] [id number] [place] [address] 73674- 6921 Jul, Gastroesophageal reflux disease, esophagitis presence not specified K21.9 [facility] [address] [place] [address] 94996- 2405 Jun, Diabetic polyneuropathy associated with type 2 diabetes mellitus E11.42 [facility] [id number] [place] [address] 82324 2548 Jun, Diabetic polyneuropathy associated with type 2 diabetes mellitus E11.42 ; Coronary artery disease involving telida coronary artery of telida 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 I25.118 and Paroxysmal atrial fibrillation I48.0 [facility] [id number] [place] [address] 05433- 3881 Jun, [facility] [id number] [place] [address] 25085 2540 Jun, [facility] [id number] [place] [address] 14501 2545 Jun, Gastroenteritis K52.9 [facility] [id number] [place] [address] 27906 2546 Jun, Gastroenteritis K52.9 [facility] [address], [place] [address] 2545 Jun, [facility] [id number] [place] [address] 70121 2540 Jun, [facility] [address], [place] [address] 2542 Jun, Sprain of right ankle, unspecified ligament, initial encounter S93.401A ; Type 2 diabetes mellitus with diabetic neuropathy, without long-term current use of insulin E11.40 ; Atherosclerosis of telida artery of both lower extremities with intermittent claudication I70.213 ; 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 ; Chronic atrial fibrillation I48.2 and Crohn''s disease without complication, unspecified gastrointestinal tract location K50.90 [facility] [id number] [place] [address] 32138 -6698 17 Jun, 2017 Cough R05 and Chronic obstructive pulmonary disease with acute lower respiratory infection J44.0 [facility] [id number] [place] [address] 07297- 0887 Jun, [facility] [address] 78172- 4248 Jun, Coughing R05 ; Unspecified atherosclerosis of telida arteries of extremities, unspecified extremity I70.209 ; Type 2 diabetes mellitus with diabetic peripheral angiopathy without gangrene E11.51 ; Crohn''s disease without complication, unspecified gastrointestinal tract location K50.90 ; Other chronic pancreatitis K86.1 and Chronic atrial fibrillation I48.2 [facility] [id number] [place] [address] 77511 -7253 Jun, [place] [id number] [place] [address] 92557- 4395 Jun, Bipolar affective disorder, currently depressed, moderate F31.32 ; Vascular dementia without behavioral disturbance F01.50 and Generalized anxiety disorder F41.1 [place] [id number] [place] [address] 25171- 2687 May, Generalized anxiety disorder F41.1 [place] [id number] [place] [address] 33315- 7585 May, [place] [id number] [place] [address] 32943- 6499 May, [place] [address] 71629- 0221 15 May, 2017 Coughing R05 [place] [id number] [place] [address] 05473- 0294 09 May, 2017 [place] [id number] [place] [address] 82233- 1091 May, Bipolar affective disorder, currently depressed, moderate F31.32 ; Vascular dementia without behavioral disturbance F01.50 and Generalized anxiety disorder F41.1 [place] [id number] [place] [address] 17482- 7534 Apr, Generalized anxiety disorder F41.1 [place] [id number] [place] [address] 59922- 1361 Apr, [place] [id number] [place] [address] 29490- 7074 Apr, Vascular dementia without behavioral disturbance F01.50 ; Generalized anxiety disorder F41.1 and Bipolar affective disorder, currently depressed, moderate F31.32 [place] [id number] [place] [address] 71496- 9021 Apr, Generalized anxiety disorder F41.1 [facility] [id number] [place] [address] 34501 -3933 Apr, Cough R05 and Acute exacerbation of chronic obstructive pulmonary disease (COPD) J44.1 [place] [id number] [place] [address] 52670- 8685 Apr, [facility] [id number] [place] [address] 79282 -2780 Mar, Cough R05 and Cigarette nicotine dependence without complication F17.210 [place] [id number] [place] [address] 50218- 9391 Mar, [place] [id number] [place] [address] 41457- 9669 Feb, Generalized anxiety disorder F41.1 ; Major depressive disorder, recurrent episode, moderate F33.1 ; Vascular dementia without behavioral disturbance F01.50 and Unspecified psychosis F29 [place] [id number] [place] [address] 76426- 0699 Feb, [place] [id number] [place] [address] 00167- 4732 Feb, [place] [id number] [place] [address] 83843- 9976 Feb, Generalized anxiety disorder F41.1 [place] [id number] [place] [address] 03479- 4977 Feb, Generalized anxiety disorder F41.1 [place] [address] 46053- 8231 Feb, Dizziness R42 ; Chronic fatigue R53.82 ; Postconcussion syndrome F07.81 ; Fall, initial encounter W19.XXXA and Disorientation R41.0 [place] [address] 56323- 8786 Feb, Postconcussion syndrome F07.81 ; Injury of head, initial encounter S09.90XA ; Fall, initial encounter W19.XXXA ; Disorientation R41.0 and Acute cystitis with hematuria N30.01 [place] [id number] [place] [address] 27919- 1348 Jan, Gastroesophageal reflux disease, esophagitis presence not specified K21.9 ; Post-menopausal Z78.0 and Migraine without aura and without status migrainosus, not intractable G43.009 [place] [id number] [place] [address] 62118- 7618 Jan, [place] [id number] [place] [address] 28136- 0442 Jan, Generalized anxiety disorder F41.1 ; Major depressive disorder, recurrent episode, moderate F33.1 ; Vascular dementia without behavioral disturbance F01.50 and Unspecified psychosis F29 [place] [id number] [place] [address] 35373- 1037 Jan, Pneumonia of left lower lobe due to infectious organism J18.1 [place] [id number] [place] [address] 93805- 3452 Jan, Migraine without aura and with status migrainosus, not intractable G43.001 [facility] [address] [place] [address] 94842 -2827 04 Jan, 2017 Migraine without aura and without status migrainosus, not intractable G43.009 [facility] [id number] [place] [address] 75548- 3907 19 Dec, 2016 Hematoma T14.8 [facility] [id number] [place] [address] 85101- 1243 12 Dec, 2016 [facility] [id number] [place] [address] 96113 -7712 Nov, Fatigue, unspecified type R53.83 [place] [id number] [place] [address] 54447- 4465 Nov, Scabies B86 and Coronary artery disease involving telida coronary artery of telida 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 I25.118 [place] [id number] [place] [address] 22541- 3148 Nov, [place] [id number] [place] [address] 60109- 3662 Nov, [place] [id number] [place] [address] 19567- 1190 Oct, [place] [id number] [place] [address] 13670- 0291 Oct, Generalized anxiety disorder F41.1 and Major depressive disorder, recurrent episode, moderate F33.1 [place] [id number] [place] [address] 96519- 4240 Oct, Cramp of both lower extremities R25.2 [place] [address] 79668- 4845 18 Oct, 2016 Leg cramps R25.2 [place] [id number] [place] [address] 42311- 4607 17 Oct, 2016 Chronic pain syndrome G89.4 [place] [address], [place] [address]- 3735 17 Oct, 2016 [facility] [id number] [place] [address] 99169- 9776 14 Oct, 2016 [facility] [id number] [place] [address] 64194- 2368 11 Oct, 2016 Routine gynecological examination Z01.419 and Screening for breast cancer Z12.31 [place] [id number] [place] [address] 06805- 1653 28 Sep, 2016 Diarrhea R19.7 [place] [id number] [place] [address] 79414- 0559 26 Sep, 2016 Back pain M54.9 [place] [id number] [place] [address] 03355- 6841 12 Sep, 2016 [place] [id number] [place] [address] 31013- 3809 Sep, [facility] [id number] [place] [address] 59142 -8798 August, Xeroderma Q80.9 [place] [id number] [place] [address] 66677- 1383 August, Dementia without behavioral disturbance, unspecified dementia type F03.90 [place] [id number] [place] [address] 38026- 0853 August, Chronic pain syndrome G89.4 [facility] [id number] [place] [address] 02389- 7602 August, [facility] [id number] [place] [address] 41646- 2173 August, Hyperlipidemia E78.5 ; Other fatigue R53.83 and Other specified hypotension I95.89 [facility] [address] [place] [address] 09619 -4925 August, Dysuria R30.0 ; Other fatigue R53.83 and Other specified hypotension I95.89 [facility] [id number] [place] [address] 89755- 3591 August, [facility] [id number] [place] [address] 62925- 3699 Jul, Pain in left knee M25.562 and Gastroenteritis K52.9 [place] [address] 51467- 9732 Jul, [facility] [id number] [place] [address] 67927- 4239 Jul, Diarrhea R19.7 [facility] [address] 68647 -1331 Jul, Spider bite, accidental or unintentional, initial encounter T63.301A [place] [id number] [place] [address] 35038- 8495 Jul, Primary osteoarthritis of right knee M17.11 and Arthritis M19.90 [place] [id number] [place] [address] 20178- 8488 Jul, Generalized anxiety disorder F41.1 and Major depressive disorder, recurrent episode, moderate F33.1 [place] [id number] [place] [address] 47919- 4051 Jul, Type 2 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 and Temporal headache R51 [place] [id number] [place] [address] 25262- 9105 Jul, Back pain M54.9 [facility] [id number] [place] [address] 51400- 6481 Jul, [place] [id number] [place] [address] 53520- 9015 Jul, [facility] [id number] [place] [address] 78799- 7602 Jun, Nausea R11.0 [facility] [id number] [place] [address] 83383 -1637 Jun, Acute suppurative otitis media of both ears without spontaneous rupture of tympanic membranes, recurrence not specified H66.003 and COPD exacerbation J44.1 [place] [id number] [place] [address] 16202- 8058 Jun, Generalized anxiety disorder F41.1 [place] [address] 96894- 8746 16 Jun, 2016 [facility] [place] [address] 12841 -7889 Jun, [facility] [place] [address] 16051 -3215 Jun, Shortness of breath R06.02 and COPD exacerbation J44.1 [place] [address] 94265- 0286 Jun, Eczema, unspecified type L30.9 [place] [address] 55707- 6963 Jun, [place] [address] 95980- 1612 May, [place] [address] 00292- 8606 May, Muscle cramping R25.2 [place] [address] 12085- 8941 May, [place] [address] 04427- 9333 Apr, Diarrhea R19.7 [place] [address] 51739- 6300 Apr, [place] [address] 22641- 6531 Apr, Chronic pain syndrome G89.4 [place] [address] 92761- 9593 16 Apr, 2016 Cramp of both lower extremities R25.2 and Vascular dementia without behavioral disturbance F01.50 [place] [address] 53437- 9647 Apr, Type 2 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 and Cigarette nicotine dependence without complication F17.210 [place] [address] 14837- 5423 Mar, Generalized anxiety disorder F41.1 [place] [address] 79913- 8500 Feb, Generalized anxiety disorder F41.1 and Major depressive disorder, recurrent episode, moderate F33.1 [place] [address] 03041- 7861 Feb, [facility] [address] 52439 -0399 Feb, Dysuria R30.0 and Acute cystitis with hematuria N30.01 [place] [address] 57418- 8789 Jan, [place] [address] 57690- 5406 Jan, [place] [address] [address] [address]- [address] Jan, [place] [address] [address]81- 9317 Jan, [facility] [address] [address]26 -7011 10 Jan, 2016 Wasp sting, accidental or unintentional, initial encounter T63.461A [place] [address] 35304- 7146 06 Jan, 2016 Encounter for immunization Z23 [place] [address] 83622- 2155 Jan, [facility] [address] [place] [id number] [place] [address] 37328- 6304 Jan, [facility] [address] [id number] [place] [address] 20395- 3328 28 Dec, 2015 Generalized anxiety disorder F41.1 and Major depressive disorder, recurrent episode, moderate F33.1 [facility] [address] [place] [id number] [place] [address] 93590- 7382 21 Dec, 2015 Routine gynecological examination Z01.419 ; Postmenopausal Z78.0 ; Screening breast examination Z12.39 ; Osteopenia M85.80 and Breast cancer screening Z12.39 [place] [address] [place] [id number] [place] [address] 28473- 3080 20 Dec, 2015 [facility] [address] [place] [address] [id number] [place] [address] 53929- 2328 19 Dec, 2015 [facility] [address] [place] [address] [id number] [place] [address] 53806- 9098 16 Dec, 2015 [facility] [address] [id number] [place] [address] 69777- 9587 16 Dec, 2015 [facility] [address] [place] [id number] [place] [address] 11688- 7140 14 Dec, 2015 [facility] [id number] [place] [address] 09469- 2012 Dec, [facility] [id number] [place] [address] 91374- 1200 Nov, [facility] [address], [place] [address] Nov, Cough R05 ; Other viral agents as the cause of diseases classified elsewhere B97.89 and Acute upper respiratory infection, unspecified J06.9 [facility] [address], [place] [address]- 8484 Nov, [facility] [address] [address] [id number] [address]- 6195 Nov, [facility] [address], [place] [address]- 7852 Nov, [facility] [address], [place] [address]- 3007 Nov, [facility] [address], [place] [address]- 7769 Nov, [facility] [address], [place] [address]- 3282 Oct, [facility] [id number] [place] [address] 93274- 9778 Oct, [facility] [address], [place] [address]- 5644 Oct, [facility] [id number] [place] [address] 76752- 9876 Oct, Chronic pain syndrome G89.4 [facility] [address], [place] [address]- 0482 Sep, Generalized anxiety disorder F41.1 and Major depressive disorder, recurrent episode, moderate F33.1 [facility] [address], [place] [address]- 6347 Sep, [facility] [address], [place] [address]- 4976 Sep, [facility] [address], [place] [address]- 3429 14 Sep, 2015 Generalized anxiety disorder F41.1 [facility] [address], [place] [address]- 4518 13 Sep, 2015 Cramp of both lower extremities R25.2 and Cervicalgia M54.2 [facility] [address], [place] [address]- 4797 06 Sep, 2015 Generalized anxiety disorder F41.1 [facility] [address] [place] [id number] [place] [address] 50582- 0957 Sep, [facility] [address] [place] [id number] [place] [address] 39633 -1152 August, Rash R21 ; Itching L29.9 and Allergic response, subsequent encounter T78.40XD [place] [address] [place] [id number] [place] [address] 51877- 5362 August, Primary insomnia F51.01 [facility] [address] [place] [id number] [place] [address] 39909 -3929 August, Rash R21 ; Itching L29.9 and Allergic response, initial encounter T78.40XA [place] [address] [place] [id number] [place] [address] 43203- 1052 August, [place] [address] [place] [id number] [place] [address] 10473- 8815 August, Cramp of both lower extremities R25.2 [place] [address] [place] [id number] [place] [address] 73652- 6301 August, Back pain M54.9 [place] [address] [place] [id number] [place] [address] 87830- 3014 August, [place] [address] [place] [id number] [place] [address] 09568- 9977 August, [facility] [address] [place] [id number] [place] [address] 33577 -4356 August, Cramp of both lower extremities R25.2 [place] [address] [place] [id number] [place] [address] 55744- 3060 August, [place] [address] [place] [id number] [place] [address] 86720- 9481 August, Syncope R55 ; Paroxysmal atrial fibrillation I48.0 ; Dementia without behavioral disturbance, unspecified dementia type F03.90 and Chronic pain syndrome G89.4 [place] [address] [place] [id number] [place] [address] 10585- 3281 August, Type 2 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 and Syncope R55 [facility] [address] [place] [id number] [place] [address] 29097- 2486 Jul, [facility] [address] [place] [id number] [place] [address] 22571- 5401 Jul, [facility] [address] [place] [id number] [place] [address] 79392- 5852 Jul, [facility] [address] [place] [id number] [place] [address] 76071- 6798 Jul, [facility] [address] [place] [id number] [place] [address] 40552- 6261 Jul, [facility] [address] [place] [id number] [place] [address] 73189- 1732 Jul, UTI (urinary tract infection) N39.0 [facility] [address] [place] [id number] [place] [address] 39716- 8804 Jul, [facility] [address] [place] [id number] [place] [address] 03086- 3509 Jul, Major depressive disorder, recurrent episode, moderate F33.1 and Generalized anxiety disorder F41.1 [facility] [address] [place] [id number] [place] [address] 49755- 9138 Jul, Generalized anxiety disorder F41.1 [facility] [address] [place] [address] 68373- 3302 Jul, Diarrhea R19.7 [facility] [address] [place] [id number] [place] [address] 48818 2546 Jul, [facility] [address] [place] [address] 53613- 7769 Jun, [facility] [address] [place] [address] 95294- 5256 Jun, Eczema L30.9 [facility] [address] [facility] [id number] [address] 2546 Jun, [facility] [address], [place] [address]- 8066 Jun, COPD (chronic obstructive pulmonary disease) J44.9 [facility] [address], [place] [address] 2546 Jun, [facility] [address], [place] [address] 2546 Jun, Major depressive disorder, recurrent episode, moderate F33.1 and Generalized anxiety disorder F41.1 [facility] [address], [place] [address]- 0276 May, [facility] [address], [place] [address]- 0676 May, UTI (urinary tract infection) N39.0 [facility] [address], [place] [address] 2546 May, [facility] [address], [place] [address]- 3386 May, [facility] [address], [place] [address] 2546 May, [facility] [address], [place] [address] 2546 May, [facility] [address], [place] [address] 2546 Apr, Major depressive disorder, recurrent episode, moderate F33.1 and Generalized anxiety disorder F41.1 [facility] [address], [place] [address]- 3056 Apr, COPD (chronic obstructive pulmonary disease) J44.9 [facility] [address], [place] [address] 2546 Apr, [facility] [address], [place] [address]- 6794 Apr, Atrial flutter I48.92 [facility] [address] [place] [id number] [place] [address] 25019- 2116 Apr, [facility] [address] [place] [id number] [place] [address] 63301- 9393 Apr, [facility] [address] [place] [id number] [place] [address] 57013- 0375 Mar, [facility] [address] [place] [id number] [place] [address] 79175- 9683 Mar, [facility] [address] [place] [id number] [place] [address] 33867- 0845 Mar, [facility] [address] [place] [id number] [place] [address] 35429- 1582 Mar, Hyperlipidemia E78.5 ; Type 2 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 ; Major depressive disorder, recurrent episode, moderate F33.1 and Chronic pain syndrome G89.4 [facility] [address] [place] [id number] [place] [address] 65894- 8367 Mar, [facility] [address] [place] [id number] [place] [address] 37065- 3992 Mar, [facility] [address] [place] [address] 77665- 1830 Mar, [facility] [address] [place] [address] 15892- 4073 Mar, [facility] [address] [place] [address] 22456- 3437 Feb, COPD (chronic obstructive pulmonary disease) J44.9 and Back pain M54.9 [facility] [address], [place] [address]- 5889 Feb, [facility] [address] [place] [id number] [place] [address] 66597- 3027 Feb, [facility] [address], [place] [address]- 1747 Feb, [facility] [address] [place] [id number] [place] [address] 21392- 0908 Feb, [facility] [address] [place] [id number] [address]- 0298 Feb, [facility] [address] [place] [id number] [place] [address] 08055- 8808 Feb, [facility] [address] [place] [id number] [place] [address] 95819- 7783 Feb, [facility] [address] [place] [id number] [place] [address] 36177- 4784 Feb, [facility] [address] [place] [id number] [place] [address] 39290- 3296 Feb, Diabetes E11.9 ; Back pain M54.9 and COPD (chronic obstructive pulmonary disease) J44.9 [facility] [address] [place] [id number] [place] [address] 48269- 5744 Jan, [facility] [address] [place] [id number] [place] [address] 31156- 5071 Jan, Major depression, recurrent F33.9 and Generalized anxiety disorder F41.1 [facility] [address] [place] [address] 81701- 2520 Jan, Chronic pain G89.29 [facility] [address], [place] [address]- 7765 Jan, [facility] [address] [place] [id number] [place] [address] 73192- 4402 Jan, [facility] [address], [place] [address]- 4202 Jan, [facility] [address] [place] [address] 69527- 0482 Jan, [facility] [address] [place] [address] 39503- 4466 Jan, Nicotine dependence F17.200 [facility] [address] [place] [id number] [place] [address] 92075- 1346 Jan, Nicotine dependence F17.200 and Back pain M54.9 [facility] [address] [place] [id number] [place] [address] 13102- 0411 Jan, [facility] [address] [place] [id number] [place] [address] 50756- 0337 28 Dec, 2014 [facility] [address] [place] [id number] [place] [address] 92153- 7124 25 Dec, 2014 Anxiety, generalized 300.02 and Major depression, recurrent 296.30 [facility] [address] [place] [id number] [place] [address] 98791- 7013 24 Dec, 2014 [facility] [address] [place] [id number] [place] [address] 39691- 1190 21 Dec, 2014 [facility] [address] [place] [id number] [place] [address] 74240- 9888 17 Dec, 2014 [facility] [address] [place] [place] [id number] [place] [address] 43283- 0852 15 Dec, 2014 [facility] [address] [place] [place] [id number] [place] [address] 96645- 1245 14 Dec, 2014 [facility] [address] [place] [id number] [place] [address] 52052- 7291 11 Dec, 2014 [facility] [address] [place] [address] 95582- 4470 10 Dec, 2014 [facility] [address] [place] [id number] [place] [address] 99636- 4697 08 Dec, 2014 Skin tear 879.8 [facility] [address] [place] [address] 15850- 8300 08 Dec, 2014 Routine gynecological examination V72.31 ; Breast cancer screening V76.10 and Family history of breast cancer in first degree relative V16.3 [facility] [address], [place] [address]- 6007 Dec, [facility] [address] [place] [id number] [place] [address] 03487- 5637 Dec, [facility] [address] [place] [id number] [place] [address] 45681- 9914 Nov, [facility] [address] [place] [id number] [place] [address] 34752- 3821 Nov, [facility] [address] [place] [id number] [place] [address] 40195- 8006 Nov, Poor balance 781.99 and Vascular dementia, uncomplicated 290.40 [facility] [address] [place] [id number] [place] [address] 35770- 7892 Nov, [facility] [address] [place] [id number] [place] [address] 10630- 1688 Nov, Major depression, recurrent 296.30 and Anxiety, generalized 300.02 [facility] [address] [place] [id number] [place] [address] 78595- 5617 Nov, [facility] [address] [place] [id number] [place] [address] 32020- 6495 Nov, [facility] [address] [place] [address] 97193- 6699 Nov, [facility] [address] [place] [id number] [place] [address] 81587- 1687 Nov, [facility] [address] [place] [address] 57522- 3044 Nov, Vascular dementia, uncomplicated 290.40 and Lumbago 724.2 [facility] [address] [place] [address] 84987- 2657 Nov, [facility] [address] [place] [address] 58206- 8767 Nov, [facility] [address], [place] [address]- 6683 Nov, [facility] [address], [place] [address]- 9411 Oct, [facility] [address], [place] [address]- 8291 Oct, [facility] [id number] [address]- 7250 Oct, [facility] [address], [place] [address]- 0841 Oct, COPD (chronic obstructive pulmonary disease) 496 and Hyperlipidemia 272.4 [facility] [address], [place] [address]- 8877 Oct, Major depression, recurrent 296.30 and Anxiety, generalized 300.02 [facility] [address], [place] [address]- 9333 Oct, [facility] [address], [place] [address]- 3880 Oct, [facility] [address], [place] [address]- 9517 Oct, [facility] [address], [place] [address]- 5328 Sep, Lumbago 724.2 and Anxiety state, unspecified 300.00 [facility] [address], [place] [address]- 8343 Sep, [facility] [address], [place] [address]- 7127 Sep, [facility] [address] [place] [id number] [address]- 1861 August, [facility] [address] [id number] [address]- 4158 August, Major depression, recurrent 296.30 ; Anxiety, generalized 300.02 and No condition on Oak II V71.09 [facility] [address] [place] [address]- 0853 August, [facility] [address] [facility] [id number] [place] [address]- 8506 August, [facility] [address] [place] [address]- 1816 Jul, [facility] [address] [facility] [id number] [place] [address]- 5330 Jul, [facility] [id number] [place] [address], [place] [address]- 4453 Jul, [facility] [address] [place] [id number] [place] [address]- 1564 Jun, [facility] [id number] [place] [address]- 6781 Jun, [facility] [id number] [address]- 1861 Jun, [facility] [address] [place] [address]- 3661 27 Jun, 2014 [facility] [id number] [address]- 0139 Jun, [facility] [address] [place] [address]- 0777 Jun, [facility] [id number] [address]- 8072 23 Jun, 2014 [facility] [address]- 6165 17 Jun, 2014 [facility] [address] [facility] [id number]- 2426 Jun, [facility] [address] 6228 Jun, [facility] [place] [facility] [address] [id number] [place] [address]- 7094 10 Jun, 2014 [facility] [place] [facility] [address] [id number] [place] [address]- 8216 10 Jun, 2014 [facility] [place] [facility] [address] [id number] [place] [address]- 4593 07 Jun, 2014 [facility] [place] [facility] [address] [id number] [place] [address]- 2457 07 Jun, 2014 [facility] [place] [facility] [address] [id number] [place] [address]- 0714 02 Jun, 2014 [facility] [place] [facility] [address] [id number] [place] [address]- 5435 02 Jun, 2014 [facility] [place] [facility] [address] [facility] [id number] [place] [address]- 7625 23 May, 2014 [facility] [place] [facility] [address] [id number] [place] [address]- 9889 23 May, 2014 [facility] [place] [facility] [address] [id number] [place] [address]- 5922 20 May, 2014 [facility] [place] [facility] [address] [facility] [id number] [place] [address]- 1083 May, 2014 [facility] [place] [facility] [address] [facility] [id number] [place] [address]- 8846 May, 2014 [facility] [place] [facility] [address] [id number] [place] [address]- 5956 May, 2014 [facility] [place] [facility] [address] [id number] [place] [address]- 1536 19 May, 2014 [facility] [place] [facility] [address] [facility] [id number] [place] [address]- 4915 12 May, 2014 [facility] [place] [facility] [address] [facility] [id number] [place] [address]- 2605 11 May, 2014 [facility] [place] [facility] [address] [facility] [id number] [place] [address]- 8810 May, 2014 [facility] [place] [facility] [address] [id number] [place] [address]- 1698 May, 2014 [facility] [place] [facility] [address] [id number] [place] [address]- 3206 May, 2014 [facility] [place] [facility] [address] [id number] [place] [address]- 4356 May, 2014 [facility] [place] [facility] [address] [id number] [place] [address]- 6845 May, [facility] [place] [facility] [address] [id number] [place] [address]- 0605 Apr, [facility] [place] [facility] [address] [id number] [place] [address]- 3194 Apr, [facility] [place] [facility] [address] [id number] [place] [address]- 1263 Apr, [facility] [place] [facility] [address] [id number] [place] [address]- 2625 Apr, [facility] [place] [facility] [address] [id number] [place] [address]- 5936 Apr, [facility] [place] [facility] [address] [id number] [place] [address]- 8826 Apr, [facility] [place] [facility] [address] [id number] [place] [address]- 5467 Apr, [facility] [place] [facility] [address] [id number] [place] [address]- 5208 Apr, [facility] [place] [facility] [address] [id number] [place] [address]- 5677 Apr, [facility] [place] [facility] [address] [id number] [place] [address]- 2090 Apr, [facility] [place] [facility] [address] [id number] [place] [address] Apr, [facility] [place] [facility] [address] [id number] [place] [address] Apr, [facility] [place] [facility] [address] [id number] [place] [address] Mar, [facility] [place] [facility] [address] [id number] [place] [address] Mar, [facility] [place] [facility] [address] [id number] [place] [address] 30 Mar, 2014 [facility] [place] [facility] [address] [id number] [place] [address] 30 Mar, 2014 [facility] [place] [facility] [address] [id number] [place] [address] Mar, [facility] [place] [facility] [address] [id number] [place] [address] Mar, [facility] [place] [facility] [address] [id number] [place] [address] Mar, [facility] [place] [facility] [address] [id number] [place] [address] 19 Mar, 2014 [facility] [place] [facility] [address] [id number] [place] [address] 15 Mar, 2014 [facility] [place] [facility] [address] [id number] [place] [address] 15 Mar, 2014 [facility] [place] [facility] [address] [id number] [place] [address] 15 Mar, 2014 [facility] [place] [facility] [address] [id number] [place] [address] 15 Mar, 2014 [facility] [place] [facility] [address] [id number] [place] [address] 15 Mar, 2014 [facility] [place] [facility] [address] [id number] [place] [address] 15 Mar, 2014 [facility] [place] [facility] [address] [id number] [place] [address] Mar, [facility] [place] [facility] [address] [id number] [place] [address] Mar, [facility] [place] [facility] [address] [id number] [place] [address] Mar, [facility] [place] [facility] [address] [id number] [place] [address] Mar, [facility] [place] [facility] [address] [id number] [place] [address] Mar, [facility] [place] [facility] [address] [id number] [place] [address] Mar, [facility] [place] [facility] [address] [id number] [place] [address] Feb, [facility] [place] [facility] [address] [id number] [place] [address] Feb, [facility] [facility] [address] [id number] [place] [address] Feb, [facility] [place] [facility] [address] [id number] [place] [address] 2715 Feb, [facility] [place] [facility] [address] [facility] [id number] [place] [address] 7818 Feb, [facility] [place] [facility] [address] [id number] [place] [address]- 1177 Feb, [facility] [place] [facility] [address] [id number] [place] [address]- 2850 Feb, [facility] [place] [facility] [address] [id number] [place] [address]- 7733 Feb, [facility] [place] [facility] [address] [id number] [place] [address]- 0092 Feb, [facility] [place] [facility] [address] [id number] [place] [address]- 9904 Feb, [facility] [place] [facility] [address] [id number] [place] [address]- 5339 Feb, [facility] [place] [facility] [address] [id number] [place] [address]- 9117 Feb, [facility] [place] [facility] [address] [id number] [place] [address]- 1091 Feb, [facility] [place] [facility] [address] [id number] [place] [address]- 2694 Feb, [facility] [place] [facility] [address] [id number] [place] [address]- 1133 Feb, [facility] [place] [facility] [address] [id number] [place] [address]- 7719 Feb, [facility] [place] [facility] [address] [id number] [place] [address]- 8130 Feb, [facility] [place] [facility] [address] [id number] [place] [address]- 0978 Jan, [facility] [place] [facility] [address] [id number] [place] [address]- 2837 Jan, [facility] [place] [facility] [address] [id number] [place] [address]- 2200 Jan, [facility] [place] [facility] [address] [id number] [place] [address]- 8744 Jan, [facility] [place] [facility] [address] [id number] [place] [address]- 9077 Jan, [facility] [place] [facility] [address] [id number] [place] [address]- 5726 Jan, [facility] [place] [facility] [address] [id number] [place] [address]- 7142 Jan, [facility] [place] [facility] [address] [id number] [place] [address]- 0740 Jan, [facility] [place] [facility] [address] [id number] [place] [address]- 2609 Jan, [facility] [place] [facility] [address] [id number] [place] [address]- 8105 Jan, [facility] [place] [facility] [address] [id number] [place] [address] Jan, [facility] [place] [facility] [address] [id number] [place] [address]- 5128 Dec, [facility] [place] [facility] [address] [id number] [place] [address]- 8582 Dec, [facility] [place] [facility] [address] [id number] [place] [address]- 8287 Nov, [facility] [place] [facility] [address] [id number] [place] [address]- 2643 Nov, [facility] [place] [facility] [address] [id number] [place] [address]- 5142 Nov, [facility] [place] [address] [id number] [place] [address]- 2458 Nov, [facility] [place] [facility] [address] [id number] [place] [address]- 4147 Nov, [facility] [place] [facility] [address] [id number] [place] [address]- 9860 Nov, [facility] [address] [id number] [place] [address]- 8118 Nov, [facility] [address] [id number] [place] [address]- 5920 Oct, [facility] [facility] [address] [id number] [place] [address]- 9972 Oct, [facility] [facility] [address] [id number] [place] [address]- 1129 Oct, [facility] [place] [facility] [address] [id number] [place] [address]- 1586 Oct, [facility] [place] [facility] [address] [id number] [place] [address]- 5132 30 Sep, 2013 [facility] [address] [id number] [place] [address]- 9939 30 Sep, 2013 [facility] [address] [id number] [place] [address]- 7313 Sep, [facility] [address] [id number] [place] [address]- 6834 Sep, [facility] [facility] [address] [id number] [place] [address]- 8847 Sep, [facility] [address] [id number] [place] [address]- 7480 Sep, [facility] [address] [id number] [place] [address]- 7251 Sep, [facility] [address] [id number] [place] [address]- 2663 Sep, [facility] [facility] [address] [id number] [place] [address]- 6109 Sep, [facility] [address] [id number] [place] [address]- 1977 Sep, [facility] [address] [id number] [place] [address]- 8562 Sep, [facility] [address] [id number] [place] [address]- 3152 Sep, [facility] [address] [id number] [place] [address]- 3507 Sep, [facility] [address] [id number] [place] [address]- 5627 Sep, [facility] [address] [id number] [place] [address]- 9974 August, [facility] [address] [id number] [place] [address]- 0068 August, [facility] [address] [id number] [place] [address]- 1814 August, [facility] [address] [id number] [place] [address]- 9732 August, [facility] [address] [id number] [place] [address]- 7613 August, [facility] [address] [id number] [place] [address]- 0257 August, [facility] [address] [id number] [place] [address]- 8928 August, [facility] [address] [id number] [place] [address]- 8210 August, [facility] [address] [id number] [place] [address]- 6359 August, [facility] [address] [id number] [place] [address]- 3380 August, [facility] [address] [id number] [place] [address]- 2285 August, [facility] [address] [id number] [place] [address]- 9930 August, [facility] [address] [id number] [place] [address]- 3331 August, [facility] [address] [id number] [place] [address]- 2056 August, [facility] [address] [id number] [place] [address]- 0867 August, [facility] [address] [id number] [place] [address]- 6062 August, [facility] [address] [id number] [place] [address]- 2879 August, [facility] [address] [id number] [place] [address]- 0578 August, [facility] [address] [id number] [place] [address]- 2922 August, [facility] [address] [id number] [place] [address]- 9044 Jul, [facility] [address] [id number] [place] [address]- 5513 Jul, [facility] [address] [id number] [place] [address]- 1482 Jul, [facility] [address] [id number] [place] [address]- 6576 Jul, [facility] [address] [id number] [place] [address]- 2626 Jun, [facility] [address] [id number] [place] [address]- 0005 Jun, [facility] [address] [id number] [place] [address]- 2141 Jun, [facility] [address] [id number] [place] [address]- 8181 Jun, [facility] [address] [id number] [place] [address]- 8026 Jun, [facility] [address] [id number] [place] [address]- 1483 Jun, [facility] [address] [id number] [place] [address]- 4878 Jun, [facility] [address] [id number] [place] [address]- 7613 Jun, [facility] [address] [id number] [place] [address]- 5380 Jun, [facility] [address] [id number] [place] [address]- 5267 Jun, [facility] [address] [id number] [place] [address]- 4365 May, [facility] [address] [id number] [place] [address]- 5006 May, [facility] [address] [id number] [place] [address]- 5946 May, [facility] [address] [facility] [id number] [place] [address]- 9460 May, [facility] [address] [id number] [place] [address]- 0126 May, [facility] [address] [id number] [place] [address]- 0996 May, [facility] [address] [facility] [id number] [place] [address]- 6379 May, [facility] [address] [id number] [place] [address]- 5852 May, [facility] [address] [facility] [id number] [place] [address]- 0577 May, [facility] [address] [facility] [id number] [place] [address]- 7094 May, [facility] [address] [facility] [id number] [place] [address]- 1821 18 May, 2013 [facility] [address] [facility] [id number] [place] [address]- 2547 17 May, 2013 [facility] [address] [facility] [id number] [place] [address]- 3498 May, [facility] [address] [facility] [id number] [place] [address]- 5399 May, [facility] [address] [facility] [id number] [place] [address]- 0387 10 May, 2013 [facility] [address] [facility] [id number] [place] [address]- 2546 07 May, 2013 [facility] [address] [id number] [place] [address]- 0816 07 May, 2013 [facility] [address] [id number] [place] [address]- 2546 Apr, [facility] [address] [id number] [place] [address]- 2546 Apr, [facility] [address] [id number] [place] [address]- 2546 Apr, [facility] [address] [id number] [place] [address]- 8416 Apr, [facility] [address] [id number] [place] [address]- 9106 Apr, [facility] [address] [id number] [place] [address]- 1152 Apr, [facility] [address] [id number] [place] [address]- 8501 Apr, [facility] [address] [id number] [place] [address]- 2044 Mar, [facility] [address] [id number] [place] [address]- 1912 Mar, [facility] [address] [id number] [place] [address]- 2546 Mar, [facility] [address] [id number] [place] [address]- 2546 Mar, [facility] [address] [id number] [place] [address]- 2546 Mar, [facility] [address] [id number] [place] [address]- 2546 Mar, [facility] [address] [id number] [place] [address]- 0976 Mar, [facility] [address] [id number] [place] [address]- 5398 Mar, [facility] [address] [id number] [place] [address]- 5848 Mar, [facility] [address] [id number] [place] [address]- 6048 Mar, [facility] [address] [id number] [place] [address]- 2213 Mar, [facility] [address] [id number] [place] [address]- 0484 Feb, [facility] [address] [id number] [place] [address]- 9962 Feb, [facility] [facility] [address] [id number] [place] [address]- 2289 Feb, [facility] [place] [address] [id number] [place] [address]- 1816 20 Feb, 2013 [facility] [address] [id number] [place] [address]- 6926 Feb, [facility] [address] [id number], [place] [address]- 7009 19 Feb, 2013 [facility] [address] [id number], [place] [address]- 2855 15 Feb, 2013 [facility] [address] [id number], [place] [address]- 2224 14 Feb, 2013 [facility] [address] [id number] [place] [address]- 5706 14 Feb, 2013 [facility] [address] [id number], [place] [address]- 2706 13 Feb, 2013 [facility] [address] [id number], [place] [address]- 8664 13 Feb, 2013 [facility] [address] [id number] [place] [address]- 3005 Feb, [facility] [place] [facility] [address] [id number] [place] [address]- 5722 Feb, [facility] [place] [facility] [address] [id number] [place] [address]- 4375 Feb, [facility] [place] [facility] [address] [id number] [place] [address]- 8255 Feb, [facility] [place] [facility] [address] [id number] [place] [address]- 1317 Feb, [facility] [place] [facility] [address] [id number] [place] [address]- 3937 Jan, [facility] [place] [facility] [address] [id number] [place] [address]- 1074 Jan, [facility] [place] [facility] [address] [id number] [place] [address]- 5220 Jan, [facility] [place] [facility] [address] [id number] [place] [address]- 6076 Jan, [facility] [place] [facility] [address] [id number] [place] [address]- 0580 Jan, [facility] [place] [facility] [address] [id number] [place] [address]- 8670 Jan, [facility] [place] [facility] [address] [id number] [place] [address]- 3761 Jan, [facility] [place] [facility] [address] [id number], [place] [address]- 5949 Jan, [facility] [place] [facility] [address] [id number] [place] [address]- 0061 10 Jan, 2013 [facility] [place] [facility] [address] [id number] [place] [address]- 9317 27 Dec, 2012 [facility] [place] [facility] [address] [id number], [place] [address]- 2024 20 Dec, 2012 [facility] [place] [facility] [address] [id number] [place] [address]- 2760 19 Dec, 2012 [facility] [place] [facility] [address] [id number] [place] [address]- 6736 10 Dec, 2012 [facility] [place] [facility] [address] [id number] [place] [address] 2546 04 Dec, 2012 [facility] [place] [facility] [address] [id number] [place] [address] 2546 03 Dec, 2012 [facility] [place] [facility] [address] [id number] [place] [address] 2549 Nov, [facility] [place] [facility] [address] [id number] [place] [address]- 2781 Nov, [facility] [place] [facility] [address] [id number] [place] [address]- 8363 Nov, [facility] [place] [facility] [address] [id number] [place] [address]- 7667 Nov, [facility] [place] [facility] [address] [id number] [place] [address]- 1496 Nov, [facility] [place] [facility] [address] [id number] [place] [address]- 4086 Nov, [facility] [place] [facility] [address] [id number] [place] [address]- 6800 Nov, [facility] [place] [facility] [address] [id number] [place] [address]- 2542 Nov, [facility] [place] [facility] [address] [id number] [place] [address]- 2544 14 Nov, 2012 [facility] [place] [facility] [address] [id number] [place] [address]- 2547 Nov, [facility] [place] [facility] [address] [id number] [place] [address]- 2540 17 Oct, 2012 [facility] [place] [facility] [address] [id number] [place] [address]- 4071 Oct, [facility] [place] [facility] [address] [id number] [place] [address]- 7124 Oct, [facility] [place] [facility] [address] [id number] [place] [address]- 2098 Oct, [facility] [place] [facility] [address] [id number] [place] [address]- 6790 Oct, [facility] [place] [facility] [address] [id number] [place] [address]- 3072 Oct, [facility] [place] [facility] [address] [id number] [place] [address]- 6488 Oct, [facility] [place] [facility] [address] [id number] [place] [address]- 9894 Oct, [facility] [place] [facility] [address] [id number] [place] [address]- 2422 Sep, [facility] [place] [facility] [address] [id number] [place] [address]- 3259 Sep, [facility] [place] [facility] [address] [id number] [place] [address]- 3728 Sep, [facility] [place] [facility] [address] [id number] [place] [address]- 9290 Sep, [facility] [place] [facility] [address] [id number], [place] [address]- 7837 Sep, [facility] [place] [facility] [address] [id number], [place] [address]- 4719 Sep, [facility] [place] [facility] [address] [id number] [place] [address]- 3138 Sep, [facility] [place] [facility] [address] [id number], [place] [address]- 0246 Sep, [facility] [place] [facility] [address] [id number] [place] [address]- 7605 August, [facility] [place] [facility] [address] [id number] [place] [address]- 2217 August, [facility] [address] [id number] [place] [address]- 5832 August, [facility] [address] [id number] [place] [address]- 9359 August, [facility] [address] [id number] [place] [address]- 7357 August, [facility] [address] [id number] [place] [address]- 8805 Jul, [facility] [address] [id number] [place] [address]- 8537 Jul, [facility] [address] [id number] [place] [address]- 1426 Jul, [facility] [address] [id number] [place] [address] Jul, [facility] [address] [id number] [place] [address] Jul, [facility] [address] [id number] [place] [address] Jun, [facility] [address] [id number] [place] [address] 18 Jun, 2012 [facility] [address] [id number] [place] [address] 15 Jun, 2012 [facility] [address] [id number] [place] [address] 14 Jun, 2012 [facility] [address] [id number] [place] [address] 12 Jun, 2012 [facility] [address] [id number] [place] [address] 08 Jun, 2012 [facility] [address] [id number] [place] [address] 08 Jun, 2012 [facility] [address] [id number] [place] [address]68 Jun, [facility] [address] [id number] [place] [address] Jun, [facility] [address] [id number] [place] [address] May, [facility] [address] [id number] [place] [address] May, [facility] [address] [id number] [place] [address] May, [facility] [address] [id number] [place] [address] 1785 May, [facility] [address] [id number] [place] [address] Apr, [facility] [address] [id number] [place] [address] Apr, [facility] [address] [id number] [place] [address] Apr, [facility] [address] [id number] [place] [address] 1497 Apr, [facility] [address] [id number] [place] [address] Apr, [facility] [address] [id number] [place] [address] 97[address] Apr, [facility] [address] [id number] [place] [address] 7699 Apr, [facility] [address] [id number] [place] [address] Mar, [facility] [address] [place] [id number] Mar, [facility] [address] [id number] [place] [address] Mar, [facility] [place] [facility] [address] [id number] [place] [address] Mar, [facility] [place] [facility] [address] [id number] [place] [address] Mar, [facility] [place] [facility] [address] [id number] [place] [address] Mar, [facility] [place] [facility] [address] [id number] [place] [address] Mar, [facility] [place] [facility] [address] [id number] [place] [address] Mar, [facility] [place] [facility] [address] [id number] [place] [address] Mar, [facility] [place] [facility] [address] [id number] [place] [address] Mar, [facility] [place] [facility] [address] [id number] [place] [address] Mar, [facility] [place] [facility] [address] [id number] [place] [address] Mar, [facility] [place] [facility] [address] [id number] [place] [address] Mar, [facility] [place] [facility] [address] [id number] [place] [address] 69[address] Mar, [facility] [place] [facility] [address] [id number], [place] [address] Mar, [facility] [place] [facility] [address] [id number] [place] [address] Mar, [facility] [place] [facility] [address] [id number] [place] [address] 95[address] Mar, [facility] [place] [facility] [address] [id number] [place] [address]666 Feb, [facility] [place] [facility] [address] [id number] [place] [address] Feb, [facility] [place] [facility] [address] [id number] [place] [address] 2746 Feb, [facility] [place] [facility] [address] [id number] [place] [address]- [address] Feb, [facility] [place] [facility] [address] [id number] [place] [address]707 Feb, [facility] [place] [facility] [address] [id number] [place] [address] Feb, [facility] [place] [facility] [address] [id number] [place] [address]- 404[address] Feb, [facility] [place] [facility] [address] [id number] [place] [address] Feb, [facility] [place] [facility] [address] [id number] [place] [address] 1368 Feb, [facility] [place] [facility] [address] [id number] [place] [address]- [address]443 16 Feb, 2012 [facility] [place] [facility] [address] [id number] [place] [address]- 6787 Feb, [facility] [place] [facility] [address] [id number] [place] [address]- [address]159 Feb, [facility] [place] [facility] [address] [id number] [place] [address]- 4629 Feb, [facility] [place] [facility] [address] [id number] [place] [address]- 9087 Feb, [facility] [place] [facility] [address] [id number] [place] [address]- 9280 Feb, [facility] [place] [facility] [address] [id number] [place] [address]71 Feb, [facility] [place] [facility] [address] [id number] [place] [address]- [address]297 Jan, [facility] [place] [facility] [address] [id number] [place] [address]- [address]369 Jan, 2011 [facility] [place] [facility] [address] [id number] [place] [address]- 9516 Jan, [facility] [place] [facility] [address] [id number] [place] [address]- 8677 Jan, [facility] [place] [facility] [address] [id number] [place] [address]- [address]139 Jan, [facility] [place] [facility] [address] [id number] [place] [address]- 3451 Jan, [facility] [place] [facility] [address] [id number] [place] [address]- 2220 Jan, [facility] [place] [facility] [address] [id number] [place] [address]- 8958 Jan, [facility] [place] [facility] [address] [id number], [place] [address] Jan, [facility] [place] [facility] [address] [id number] [place] [address]- 8473 Jan, [facility] [place] [facility] [address] [id number], [place] [address]- 1660 Jan, [facility] [place] [facility] [address] [id number], [place] [address]- 115[address] Jan, [facility] [place] [facility] [address] [id number], [place] [address]- [address] Jan, [facility] [place] [facility] [address] [id number], [place] [address]- 9557 Jan, [facility] [place] [facility] [address] [id number], [place] [address]- 0488 Jan, [facility] [place] [facility] [address] [id number], [place] [address]- 7241 Jan, [facility] [place] [facility] [address] [id number], [place] [address]- [address] 04 Jan, 2012 [facility] [place] [facility] [address] [id number] [place] [address] 2546 21 Dec, 2011 [facility] [place] [facility] [address] [id number] [place] [address] 2546 20 Dec, 2011 [facility] [place] [facility] [address] [id number] [place] [address] 2546 18 Dec, 2011 [facility] [place] [facility] [address] [id number] [place] [address] 2546 18 Dec, 2011 [facility] [place] [facility] [address] [id number] [place] [address] 2546 10 Dec, 2011 [facility] [place] [facility] [address] [id number] [place] [address] 5716 10 Dec, 2011 [facility] [place] [facility] [address] [id number] [place] [address]- 7466 10 Dec, 2011 [facility] [place] [facility] [address] [id number] [place] [address] 5[address] 07 Dec, 2011 [facility] [place] [facility] [address] [id number] [place] [address] 9366 30 Nov, 2011 [facility] [place] [facility] [address] [id number] [place] [address] 2765 Nov, [facility] [place] [facility] [address] [id number] [place] [address] 2547 Nov, [facility] [place] [facility] [address] [id number] [place] [address] 2546 Nov, [facility] [place] [facility] [address] [id number] [place] [address] 2546 Nov, [facility] [place] [facility] [address] [id number] [place] [address]- 254 16 Nov, 2011 [facility] [place] [facility] [address] [id number] [place] [address] 5293 30 Oct, 2011 [facility] [place] [facility] [address] [id number] [place] [address] 4100 30 Oct, 2011 [facility] [place] [facility] [address] [id number] [place] [address]- 3794 Oct, [facility] [place] [facility] [address] [id number] [place] [address] 2716 Oct, [facility] [place] [facility] [address] [id number] [place] [address]- 3[address] Oct, [facility] [place] [facility] [address] [id number] [place] [address]- 6483 Oct, [facility] [place] [facility] [address] [id number] [place] [address]- 2505 Oct, [facility] [place] [facility] [address] [id number] [place] [address] 1558 Sep, [facility] [place] [facility] [address] [id number] [place] [address]- 4051 Sep, [facility] [place] [facility] [address] [id number] [place] [address] 4763 Sep, [facility] [place] [facility] [address] [id number] [place] [address]- 7708 Sep, [facility] [place] [facility] [address] [id number] [place] [address] 2053 Sep, [facility] [place] [facility] [address] [id number] [place] [address] 8593 15 Sep, 2011 [facility] [place] [facility] [address] [id number] [place] [address]- 2547 14 Sep, 2011 [facility] [place] [facility] [address] [id number] [place] [address]- 0775 11 Sep, 2011 [facility] [place] [facility] [address] [id number] [place] [address] 4636 05 Sep, 2011 [facility] [place] [facility] [address] [id number] [place] [address] 5670 Sep, [facility] [address] [id number] [place] [address] 9686 August, [facility] [place] [facility] [address] [id number] [place] [address] 1245 August, [facility] [address] [id number] [place] [address]- 0427 August, [facility] [place] [facility] [address] [id number] [place] [address] 1558 August, [facility] [address] [id number] [place] [address] 1439 August, [facility] [place] [facility] [address] [id number] [place] [address]- 6290 Jul, [facility] [place] [facility] [address] [id number] [place] [address] 9272 Jul, [facility] [place] [facility] [address] [id number] [place] [address] 9943 Jul, [facility] [place] [facility] [address] [id number] [place] [address] 5219 Jul, [facility] [place] [facility] [address] [id number] [place] [address] 2665 Jul, [facility] [place] [facility] [address] [id number] [place] [address]- 2786 Jul, [facility] [place] [facility] [address] [id number] [place] [address]- 9688 Jul, [facility] [place] [facility] [address] [id number] [place] [address] 9054 Jun, [facility] [place] [facility] [address] [id number] [place] [address]- 5044 Jun, [facility] [place] [facility] [address] [id number] [place] [address]- 9070 Jun, [facility] [place] [facility] [address] [id number] [place] [address]- 5303 Jun, [facility] [place] [facility] [address] [id number] [place] [address] 9671 Jun, [facility] [place] [facility] [address] [id number] [place] [address]- 0666 May, [facility] [place] [facility] [address] [id number] [place] [address]- 8196 May, [facility] [place] [facility] [address] [id number] [place] [address]- 0260 May, [facility] [place] [facility] [address] [id number] [place] [address], [place] [address]- [address]84 May, [facility] [place] [facility] [address] [facility] [id number] [place] [address]- 4102 May, [facility] [place] [facility] [id number] [place] [address], [place] [address]- [address]12 May, [facility] [place] [facility] [address] [id number] [place] [address]- 4616 Apr, [facility] [place] [facility] [id number] [place] [address] Mar, [facility] [place] [facility] [address] [id number] [place] [address] 2739 Feb, [facility] [place] [facility] [address] [facility] [id number] [place] [address] 2540 Feb, [facility] [place] [facility] [address] [id number] [place] [address] 254 Feb, [facility] [place] [facility] [address] [facility] [id number] [place] [address]- 9186 Feb, [facility] [place] [facility] [address] [facility] [id number] [place] [address]- 5407 Jan, [facility] [place] [facility] [address] [facility] [id number] [place] [address]- 5927 Jan, [facility] [place] [facility] [address] [id number] [place] [address]- 6671 26 Jan, 2011 [facility] [place] [facility] [address] [id number] [place] [address]- 2881 24 Jan, 2011 [facility] [place] [facility] [address] [id number] [place] [address]- 4455 14 Jan, 2011 [facility] [place] [facility] [address] [id number] [place] [address]- 2561 19 Dec, 2010 [facility] [place] [facility] [address] [id number] [place] [address]- 4087 Oct, [facility] [place] [facility] [address] [id number] [place] [address]- 6273 August, [facility] [place] [facility] [address] [id number] [place] [address]- 8147 29 Mar, 2010 [facility] [place] [facility] [address] [id number] [place] [address]- 9227 27 Mar, 2010 [facility] [place] [facility] [address] [id number] [place] [address]- 8646 16 Mar, 2010 [facility] [place] [facility] [address] [id number], [place] [address]- 4175 15 Mar, 2010 [facility] [place] [facility] [address] [id number], [place] [address]- 0122 15 Mar, 2010 [facility] [place] [facility] [address] [id number], [place] [address]- 3931 08 Mar, 2010 [facility] [place] [facility] [address] [id number] [place] [address]- 8375 03 Mar, 2010 [facility] [place] [facility] [address] [id number], [place] [address]- 4534 24 Feb, 2010 [facility] [place] [facility] [address] [id number], [place] [address]- 9271 24 Feb, 2010 [facility] [place] [facility] [address] [id number], [place] [address]- 7299 15 Feb, 2010 [facility] [place] [facility] [address] [id number], [place] [address]- 5907 19 Jan, 2010 [facility] [place] [facility] [address] [facility] [id number], [place] [address]- 1085 18 Jan, 2010 [facility] [place] [facility] [address] [facility] [id number], [place] [address]- 5626 18 Jan, 2010 [facility] [place] [facility] [address] [facility] [id number], [place] [address]- 3250 Nov, [facility] [place] [facility] [address] [facility] [id number] [place] [address]- 0849 14 Sep, 2009 [facility] [place] [facility] [address] [facility] [id number], [place] [address]- 5183 August, [facility] [place] [facility] [id number] [place] [address]- 0100 30 Mar, 2009 [facility] [place] [facility] [address] [facility] [id number], [place] [address]- 0143 Mar, [facility] [place] [facility] [address] [id number], [place] [address]- 2976 17 Feb, 2009 [facility] [place] [facility] [address]65[address], [place] [address]- 9234 10 Feb, 2009 [facility] [place] [facility] [address] [facility] [id number], [place] [address]- 9373 10 Feb, 2009 [facility] [place] [facility] [address] [facility] [id number], [place] [address]- 5988 10 Feb, 2009 [facility] [place] [facility] [address] [facility] [id number], [place] [address]- 8108 06 Feb, 2009 [facility] [place] [facility] [address] [facility] [id number], [place] [address]- 0434 27 Jan, 2009 [facility] [place] [facility] [address] [facility] [id number], [place] [address]- 5501 26 Jan, 2009 [facility] [place] [facility] [address] [id number], [place] [address]- 2242 Jan, [facility] [address] [id number], [place] [address]- 6476 Jan, [facility] [address]00565[address], [place] [address]- 2722 Nov, [facility] [address]65[address], [place] [address]- 3705 Sep, [facility] [address]65[address], [place] [address]- 3958 August, [facility] [address]65[address], [place] [address]- 8143 Jul, [facility] [address] [id number], [place] [address]- 7167 May, IMMUNIZATIONS No Known Immunizations SOCIAL HISTORY Never Assessed REASON FOR VISIT violation PLAN OF CARE VITAL SIGNS MEDICATIONS Unknown [...] Hospitalization History Knee Surgery 07/16/17 Hospitalization History [facility]- left hand/wrist swelling 10/09/2017
--- OUTSIDE RECORDS SUMMARY | 2018-01-01 11:49 | XMS REPORT ---
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 Role Phone SENAIT DUNLAP Unavailable PROBLEMS Type Condition ICD9-CM Code EYA25-RT Code Onset Dates Condition Status SNOMED Code Problem History of common bile duct surgery Z98.89 Active 522088977 Problem Barretts esophagus K22.70 Active 321577312 Problem 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 Active 27905986 Problem Colon polyp K63.5 Active 45125891 Problem Bilateral low back pain without sciatica M54.5 Active 310443293 Problem Screening breast examination Z12.39 Active 736012026 Problem Postmenopausal Z78.0 Active 83569083 Problem Osteopenia M85.80 Active 485112130 Problem Cigarette nicotine dependence without complication F17.210 Active 87561705 Problem Type 2 diabetes mellitus with diabetic peripheral angiopathy without gangrene E11.51 Active 084019849 Problem Vascular dementia without behavioral disturbance F01.50 Active [id number] Problem Unspecified atherosclerosis of [place] arteries of extremities, unspecified extremity I70.209 Active 639520332450463 Problem Arthritis M19.90 Active 8671599 Problem Chronic atrial fibrillation I48.2 Active 796887909 Problem Chronic obstructive pulmonary disease with acute lower respiratory infection J44.0 Active 210628983 Problem Other chronic pancreatitis K86.1 Active 445605214 Problem Stress incontinence of urine N39.3 Active 45342313 Problem Controlled type 2 diabetes mellitus without complication, without long -term current use of insulin E11.9 Active 644398063 Problem Unspecified psychosis F29 Active 59388226 Problem Xeroderma Q80.9 Active 38283161 Problem COPD (chronic obstructive pulmonary disease) J44.9 Active 62592392 Problem Dementia without behavioral disturbance, unspecified dementia type F03.90 Active 15814222 Problem Gastroparesis K31.84 Active 776188462 Problem Type 2 diabetes mellitus with diabetic neuropathy, without long-term current use of insulin E11.40 Active 48596586 Problem Osteoporosis M81.0 Active 61574632 Problem Atherosclerosis of [place] artery of both lower extremities with intermittent claudication I70.213 Active 647002897460871 Problem Hyperlipidemia E78.5 Active 74316131 Problem Diabetic polyneuropathy associated with type 2 diabetes mellitus E11.42 Active 81154136 Problem Essential tremor G25.0 Active 17958267 Problem 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.118 Active 2276421886360 Problem Generalized anxiety disorder F41.1 Active 407683918 Problem Gastroesophageal reflux disease, esophagitis presence not specified K21.9 Active 332849235 Problem Coronary artery disease involving [place] coronary artery of [place] 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 I25.118 Active 1300369488370 Problem Postconcussion syndrome F07.81 Active 20854936 Problem Chronic pain syndrome G89.4 Active 472973872 Problem Migraine without aura and without status migrainosus, not intractable G43.009 Active 408455530 Problem Paroxysmal atrial fibrillation I48.0 Active 201029734 Problem Migraine without aura and with status migrainosus, not intractable G43.001 Active 687357484 Problem Cervicalgia M54.2 Active 0628764776531 Problem Acute exacerbation of chronic obstructive pulmonary disease (COPD) J44.1 Active 720523844 Problem Major depressive disorder, recurrent episode, moderate F33.1 Active 483364865 Problem Crohn''s disease without complication, unspecified gastrointestinal tract location K50.90 Active 82177846 Problem Chronic fatigue R53.82 Active 78759455 Problem Bipolar affective disorder, currently depressed, moderate F31.32 Active 193313774 ALLERGIES No Information ENCOUNTERS Encounter Location Date Diagnosis [place] [id number] [facility] [id number] [address] Nov, [facility] [id number] [address] Nov, [place] [id number] [address] Oct, [facility] [id number] [address] Oct, Bipolar affective disorder, currently depressed, moderate F31.32 ; Vascular dementia without behavioral disturbance F01.50 and Generalized anxiety disorder F41.1 [facility] [id number] [place] [address] 19920- 8047 Oct, [facility] [id number] [place] [address] 68530- 8478 Oct, [facility] [id number] [place] [address] 43408- 6408 Oct, Edema of both legs R60.0 [facility] [id number] [place] [address] 04498- 3244 Oct, [facility] [id number] [place] [address] 48492- 4079 Sep, [facility] [id number] [place] [address] 49304- 5053 Sep, [facility] [id number] [place] [address] 57624- 9990 Sep, [facility] [id number] [place] [address] 35239- 0303 Sep, Encounter for well woman exam with routine gynecological exam Z01.419 ; Screening for STDs (sexually transmitted diseases) Z11.3 ; Screening breast examination Z12.31 and Overweight (BMI 25.0-29.9) E66.3 [facility] [address], [place] [address] Sep, [facility] [id number] [address] 2[address] Sep, [facility] [id number] [place] [address] 60548- 5990 Sep, [facility] [id number] [place] [address] 54067- 9548 August, [facility] [id number] [address] 8[address] August, [facility] [id number] [address] August, Type 2 diabetes mellitus with diabetic neuropathy, without long-term current use of insulin E11.40 and Sprain of right ankle, unspecified ligament, initial encounter S93.401A [facility] [id number] [address] 4[address] August, [facility] [id number] [place] [address] 63044- 4535 August, [facility] [id number] [place] [address] 14884- 5301 August, [facility] [id number] [place] [address] 54444- 9653 August, Gastroesophageal reflux disease, esophagitis presence not specified K21.9 [facility] [id number] [place] [address] 80457- 2524 August, [facility] [id number] [place] [address] 03439- 3752 August, [facility] [id number] [place] [address] 55134- 0479 August, [facility] [id number] [place] [address] 28062- 3106 August, Type 2 diabetes mellitus with diabetic neuropathy, without long-term current use of insulin E11.40 and Elevated liver enzymes R74.8 [facility] [address] [place] [address] 61152- 9700 Jul, [facility] [id number] [place] [address] 25131- 0184 Jul, Cough R05 [facility] [address] [place] [address] 03498- 2658 Jul, [facility] [address], [place] [address] 5205 Jul, [facility] [id number] [place] [address] 14678- 3251 Jul, Bipolar affective disorder, currently depressed, moderate F31.32 ; Vascular dementia without behavioral disturbance F01.50 and Generalized anxiety disorder F41.1 [facility] [id number] [place] [address] 98367- 4263 Jul, [facility] [address] 94999- 3159 Jul, Type 2 diabetes mellitus with diabetic neuropathy, without long-term current use of insulin E11.40 and Elevated liver enzymes R74.8 [facility] [address] 06782- 2035 Jul, [facility] [id number] [place] [address] 07491- 9276 Jul, [facility] [id number] [place] [address] 71840- 7050 Jul, [facility] [id number] [place] [address] 08437- 5240 Jul, Post-menopausal Z78.0 [facility] [address] 39075- 3122 Jul, Stress incontinence of urine N39.3 [facility] [id number] [place] [address] 33973- 4590 Jul, [facility] [id number] [place] [address] 59452- 9769 Jul, [facility] [id number] [place] [address] 22303- 0144 Jul, Stress incontinence of urine N39.3 and Cough R05 [facility] [id number] [place] [address] 95925- 5988 Jul, [facility] [id number] [place] [address] 42468- 6768 Jul, [facility] [id number] [place] [address] 71372- 8256 Jul, [facility] [id number] [place] [address] 55432- 3703 Jul, Gastroesophageal reflux disease, esophagitis presence not specified K21.9 [facility] [address] [place] [address] 78947- 8608 Jun, Diabetic polyneuropathy associated with type 2 diabetes mellitus E11.42 [facility] [id number] [place] [address] 55935- 0728 Jun, Diabetic polyneuropathy associated with type 2 diabetes mellitus E11.42 ; Coronary artery disease involving [place] coronary artery of [place] 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 I25.118 and Paroxysmal atrial fibrillation I48.0 [place] [id number] [place] [address] 59152- 1304 Jun, [place] [id number] [place] [address] 58436- 0705 Jun, [facility] [id number] [place] [address] 38509 2543 Jun, Gastroenteritis K52.9 [facility] [id number] [place] [address] 86882 2546 Jun, Gastroenteritis K52.9 [facility] [address] [place] [address] 92761 2547 Jun, [facility] [id number] [place] [address] 94086 2542 Jun, [facility] [address] [place] [address] 13866- 0781 Jun, Sprain of right ankle, unspecified ligament, initial encounter S93.401A ; Type 2 diabetes mellitus with diabetic neuropathy, without long-term current use of insulin E11.40 ; Atherosclerosis of [place] artery of both lower extremities with intermittent claudication I70.213 ; 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.118 ; Chronic atrial fibrillation I48.2 and Crohn''s disease without complication, unspecified gastrointestinal tract location K50.90 [facility] [address] [place] [address] 67933 -6105 17 Jun, 2017 Chronic obstructive pulmonary disease with acute lower respiratory infection J44.0 and Cough R05 [facility] [id number] [place] [address] 84185- 1051 Jun, [facility] [id number] [place] [address] 20678- 8718 Jun, Coughing R05 ; Unspecified atherosclerosis of [place] arteries of extremities, unspecified extremity I70.209 ; Type 2 diabetes mellitus with diabetic peripheral angiopathy without gangrene E11.51 ; Crohn''s disease without complication, unspecified gastrointestinal tract location K50.90 ; Other chronic pancreatitis K86.1 and Chronic atrial fibrillation I48.2 [facility] [id number] [place] [address] 74147 -8642 Jun, [place] [id number] [place] [address] 27947- 5309 Jun, Bipolar affective disorder, currently depressed, moderate F31.32 ; Vascular dementia without behavioral disturbance F01.50 and Generalized anxiety disorder F41.1 [place] [id number] [place] [address] 31647- 3843 May, Generalized anxiety disorder F41.1 [place] [id number] [place] [address] 45508- 4210 May, [place] [id number] [place] [address] 57385- 5850 May, [place] [id number] [place] [address] 78324- 7822 15 May, 2017 Coughing R05 [place] [id number] [place] [address] 27002- 4636 09 May, 2017 [place] [id number] [place] [address] 08013- 0261 May, Bipolar affective disorder, currently depressed, moderate F31.32 ; Vascular dementia without behavioral disturbance F01.50 and Generalized anxiety disorder F41.1 [place] [id number] [place] [address] 15343- 8722 Apr, Generalized anxiety disorder F41.1 [place] [id number] [place] [address] 15569- 2859 Apr, [place] [id number] [place] [address] 29261- 9462 Apr, Vascular dementia without behavioral disturbance F01.50 ; Generalized anxiety disorder F41.1 and Bipolar affective disorder, currently depressed, moderate F31.32 [place] [id number] [place] [address] 22148- 2937 Apr, Generalized anxiety disorder F41.1 [facility] [id number] [place] [address] 21291 -8809 Apr, Cough R05 and Acute exacerbation of chronic obstructive pulmonary disease (COPD) J44.1 [place] [id number] [place] [address] 60570- 4310 Apr, [facility] [id number] [place] [address] 90501 -8609 Mar, Cough R05 and Cigarette nicotine dependence without complication F17.210 [place] [address] [place] [address] 06261- 7758 Mar, [place] [id number] [place] [address] 67057- 1620 Feb, Generalized anxiety disorder F41.1 ; Major depressive disorder, recurrent episode, moderate F33.1 ; Vascular dementia without behavioral disturbance F01.50 and Unspecified psychosis F29 [place] [id number] [place] [address] 26291- 9966 Feb, [place] [id number] [place] [address] 27143- 7162 Feb, [place] [id number] [place] [address] 95113- 5262 Feb, Generalized anxiety disorder F41.1 [place] [address] [place] [address] 04225- 7635 Feb, Generalized anxiety disorder F41.1 [place] [address] 05059- 0779 Feb, Dizziness R42 ; Chronic fatigue R53.82 ; Postconcussion syndrome F07.81 ; Fall, initial encounter W19.XXXA and Disorientation R41.0 [place] [address] 39276- 2714 Feb, Postconcussion syndrome F07.81 ; Injury of head, initial encounter S09.90XA ; Fall, initial encounter W19.XXXA ; Disorientation R41.0 and Acute cystitis with hematuria N30.01 [place] [address] 43966- 5870 Jan, Gastroesophageal reflux disease, esophagitis presence not specified K21.9 ; Post-menopausal Z78.0 and Migraine without aura and without status migrainosus, not intractable G43.009 [place] [id number] [place] [address] 62811- 7397 Jan, [place] [id number] [place] [address] 20833- 8919 Jan, Generalized anxiety disorder F41.1 ; Major depressive disorder, recurrent episode, moderate F33.1 ; Vascular dementia without behavioral disturbance F01.50 and Unspecified psychosis F29 [place] [address] 58187- 7272 Jan, Pneumonia of left lower lobe due to infectious organism J18.1 [place] [id number] [place] [address] 26336- 4462 Jan, Migraine without aura and with status migrainosus, not intractable G43.001 [facility] [address], [place] [address] 04 Jan, 2017 Migraine without aura and without status migrainosus, not intractable G43.009 [facility] [address] [place] [address] 87641- 6148 19 Dec, 2016 Hematoma T14.8 [facility] [id number] [place] [address] 55894- 2852 Dec, [facility] [id number] [place] [address] 00301 -0807 Nov, Fatigue, unspecified type R53.83 [place] [address] [place] [address] 92336- 9783 Nov, Scabies B86 and Coronary artery disease involving [place] coronary artery of [place] 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 I25.118 [place] [address] [place] [address] 78882- 6738 Nov, [facility] [id number] [place] [address] 07885- 7539 Nov, [place] [id number] [place] [address] 17440- 5673 Oct, [place] [address] [place] [address] 96677- 1473 Oct, Generalized anxiety disorder F41.1 and Major depressive disorder, recurrent episode, moderate F33.1 [facility] [address] [place] [address] 26929- 3742 Oct, Cramp of both lower extremities R25.2 [place] [id number] [place] [address] 88824- 5403 Oct, Leg cramps R25.2 [place] [address] [place] [address] 51378- 9114 Oct, Chronic pain syndrome G89.4 [place] [address] [address]- 1467 17 Oct, 2016 [facility] [address] [place] [address] 11275- 0332 14 Oct, 2016 [facility] [id number] [place] [address] 74076- 5014 11 Oct, 2016 Routine gynecological examination Z01.419 and Screening for breast cancer Z12.31 [place] [address] [place] [address] 56748- 7098 28 Sep, 2016 Diarrhea R19.7 [place] [address] [place] [address] 72144- 2383 Sep, Back pain M54.9 [place] [address] [place] [address] 37197- 7854 Sep, [place] [address] [place] [address] 66949- 3607 Sep, [facility] [id number] [place] [address] 15496 -5535 August, Xeroderma Q80.9 [place] [address] [place] [address] 36371- 6661 August, Dementia without behavioral disturbance, unspecified dementia type F03.90 [place] [address] [place] [address] 91485- 1087 August, Chronic pain syndrome G89.4 [place] [address] [place] [address] 06408- 7299 August, [facility] [id number] [place] [address] 33122- 3529 August, Hyperlipidemia E78.5 ; Other fatigue R53.83 and Other specified hypotension I95.89 [facility] [address], [place] [address]57 August, Dysuria R30.0 ; Other fatigue R53.83 and Other specified hypotension I95.89 [facility] [id number] [place] [address] 97984- 4841 August, [facility] [address] 67065- 5880 Jul, Pain in left knee M25.562 and Gastroenteritis K52.9 [facility] [address] 26801- 0379 Jul, [facility] [address] 39861- 0544 Jul, Diarrhea R19.7 [facility] [address] 46788 -7454 Jul, Spider bite, accidental or unintentional, initial encounter T63.301A [place] [address] 25707- 2175 Jul, Primary osteoarthritis of right knee M17.11 and Arthritis M19.90 [facility] [address] 63270- 6945 Jul, Generalized anxiety disorder F41.1 and Major depressive disorder, recurrent episode, moderate F33.1 [facility] [id number] [place] [address] 23847- 4301 Jul, Type 2 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 and Temporal headache R51 [facility] [id number] [place] [address] 83374- 5914 Jul, Back pain M54.9 [facility] [id number] [place] [address] 75857- 0238 Jul, [facility] [address] 17412- 7451 Jul, [facility] [id number] [place] [address] 24004- 6741 Jun, Nausea R11.0 [facility] [address] [place] [address] Jun, Acute suppurative otitis media of both ears without spontaneous rupture of tympanic membranes, recurrence not specified H66.003 and COPD exacerbation J44.1 [facility] [address] 64097- 8350 Jun, Generalized anxiety disorder F41.1 [place] [address] 15984- 3005 16 Jun, 2016 [facility] [address] 05434 -0151 Jun, [facility] [address] 53695 -7927 Jun, Shortness of breath R06.02 and COPD exacerbation J44.1 [place] [address] 40160- 9796 Jun, Eczema, unspecified type L30.9 [place] [address] 63849- 5703 Jun, [place] [address] 84641- 7113 May, [place] [id number] [place] [address] 56530- 5150 May, Muscle cramping R25.2 [place] [id number] [place] [address] 92204- 4447 May, [place] [address] 63611- 1307 Apr, Diarrhea R19.7 [place] [address] 17829- 6651 Apr, [place] [id number] [place] [address] 15330- 7876 Apr, Chronic pain syndrome G89.4 [place] [address] [place] [address] 95808- 8335 16 Apr, 2016 Cramp of both lower extremities R25.2 and Vascular dementia without behavioral disturbance F01.50 [place] [address] 53502- 4076 Apr, Type 2 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 and Cigarette nicotine dependence without complication F17.210 [place] [address] 75345- 8339 Mar, Generalized anxiety disorder F41.1 [place] [address] 58868- 4141 Feb, Generalized anxiety disorder F41.1 and Major depressive disorder, recurrent episode, moderate F33.1 [place] [address] 21720- 3226 Feb, [facility] [address] 46912 -3131 Feb, Dysuria R30.0 and Acute cystitis with hematuria N30.01 [place] [address] 28647- 2497 Jan, [place] [address] 28440- 4653 Jan, [place] [address] 23438- 1367 Jan, [place] [address] 47027- 5539 Jan, [facility] [facility] [address] [address] Jan, Wasp sting, accidental or unintentional, initial encounter T63.461A [place] [address] [address]- [address] 06 Jan, 2016 Encounter for immunization Z23 [place] [address] [address] Jan, [facility] [address], [place] [address] Jan, [facility] [id number] [place] [address] 71195- 2364 28 Dec, 2015 Generalized anxiety disorder F41.1 and Major depressive disorder, recurrent episode, moderate F33.1 [facility] [id number] [place] [address] 00030- 9707 21 Dec, 2015 Routine gynecological examination Z01.419 ; Postmenopausal Z78.0 ; Screening breast examination Z12.39 ; Osteopenia M85.80 and Breast cancer screening Z12.39 [facility] [id number] [place] [address] 56622- 5102 20 Dec, 2015 [facility] [id number] [place] [address] 80098- 3029 19 Dec, 2015 [facility] [id number] [place] [address] 91644- 6287 16 Dec, 2015 [facility] [id number] [place] [address] 90652- 2075 16 Dec, 2015 [facility] [id number] [place] [address] 00165- 4349 14 Dec, 2015 [facility] [id number] [place] [address] 12563- 9019 Dec, [facility] [id number] [place] [address] 78277- 5537 Nov, [facility] [id number] [place] [address] 64520 -4960 Nov, Cough R05 ; Other viral agents as the cause of diseases classified elsewhere B97.89 and Acute upper respiratory infection, unspecified J06.9 [facility] [address], [place] [address] 69[address] Nov, [facility] [id number] [place] [address] 08216- 8259 Nov, [facility] [address], [place] [address] 2056 Nov, [facility] [address], [place] [address] 2860 Nov, [facility] [address], [place] [address]- 8253 Nov, [facility] [id number] [place] [address] 10735- 7890 Oct, [facility] [id number] [place] [address] 16501- 7983 Oct, [facility] [id number] [address] 2913 Oct, [facility] [id number] [place] [address] 87511- 7222 Oct, Chronic pain syndrome G89.4 [facility] [address], [place] [address]- 9176 Sep, Generalized anxiety disorder F41.1 and Major depressive disorder, recurrent episode, moderate F33.1 [facility] [address], [place] [address]- 8128 Sep, [facility] [address], [place] [address]- 2934 Sep, [facility] [address], [place] [address]- 6088 14 Sep, 2015 Generalized anxiety disorder F41.1 [facility] [address], [place] [address]- 3526 13 Sep, 2015 Cramp of both lower extremities R25.2 and Cervicalgia M54.2 [facility] [address], [place] [address]- 2536 06 Sep, 2015 Generalized anxiety disorder F41.1 [facility] [id number] [address] 6440 Sep, [facility] [id number] [place] [address] 88074 -7153 August, Rash R21 ; Itching L29.9 and Allergic response, subsequent encounter T78.40XD [facility] [id number] [place] [address] 18552- 3444 August, Primary insomnia F51.01 [facility] [id number] [place] [address] 12029 -3003 August, Rash R21 ; Itching L29.9 and Allergic response, initial encounter T78.40XA [place] [id number] [place] [address] 60766- 6308 August, [place] [address] [id number] [place] [address] 91170- 9554 August, Cramp of both lower extremities R25.2 [place] [address] [address] [id number] [place] [address] 68157- 5450 August, Back pain M54.9 [place] [address] [id number] [place] [address] 79202- 4171 August, [place] [address] [address] [id number] [place] [address] 16236- 9068 August, [facility] [id number] [place] [address] 23530 -7780 August, Cramp of both lower extremities R25.2 [place] [address] [id number] [place] [address] 18257- 1666 August, [place] [address] [address] [id number] [place] [address] 46098- 4046 August, Syncope R55 ; Paroxysmal atrial fibrillation I48.0 ; Dementia without behavioral disturbance, unspecified dementia type F03.90 and Chronic pain syndrome G89.4 [place] [address] [id number] [place] [address] 79418- 3605 August, Type 2 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 and Syncope R55 [facility] [id number] [place] [address] 00269- 8149 Jul, [facility] [id number] [place] [address] 25632- 5507 Jul, [facility] [id number] [place] [address] 33925- 2903 Jul, [facility] [id number] [place] [address] 29144- 9171 Jul, [facility] [id number] [place] [address] 61533- 6983 Jul, [facility] [id number] [place] [address] 18321- 3073 Jul, UTI (urinary tract infection) N39.0 [facility] [id number] [place] [address] 52849- 7923 Jul, [facility] [id number] [place] [address] 57751- 9683 Jul, Major depressive disorder, recurrent episode, moderate F33.1 and Generalized anxiety disorder F41.1 [facility] [id number] [place] [address] 25619- 8626 Jul, Generalized anxiety disorder F41.1 [facility] [address] [place] [address] 96638- 0131 Jul, Diarrhea R19.7 [facility] [address] [place] [address] 43277- 5346 Jul, [facility] [address] [place] [address] 92486- 8411 Jun, [facility] [address] [place] [address] 43839- 7354 Jun, Eczema L30.9 [facility] [address], [place] [address]- 9680 Jun, [facility] [address], [place] [address]- 8196 Jun, COPD (chronic obstructive pulmonary disease) J44.9 [facility] [address], [place] [address]- 0256 Jun, [facility] [address] [place] [address] 79219- 6519 Jun, Major depressive disorder, recurrent episode, moderate F33.1 and Generalized anxiety disorder F41.1 [facility] [address], [place] [address]- 6386 May, [facility] [address], [place] [address]- 4267 May, UTI (urinary tract infection) N39.0 [facility] [address], [place] [address]- 0098 May, [facility] [address], [place] [address]- 1667 May, [facility] [address], [place] [address]- 5979 May, [facility] [address], [place] [address]- 6216 May, [facility] [address], [place] [address]- 1420 Apr, Major depressive disorder, recurrent episode, moderate F33.1 and Generalized anxiety disorder F41.1 [facility] [address], [place] [address]- 8088 Apr, COPD (chronic obstructive pulmonary disease) J44.9 [facility] [address], [place] [address]- 0506 Apr, [facility] [id number] [address]- 2876 Apr, Atrial flutter I48.92 [facility] [id number] [place] [address] 35359- 8052 Apr, [facility] [id number] [place] [address] 78542- 2653 Apr, [facility] [id number] [place] [address] 30507- 5435 Mar, [facility] [id number] [place] [address] 29861- 1545 Mar, [facility] [id number] [place] [address] 00326- 1712 Mar, [facility] [id number] [place] [address] 42309- 4392 Mar, Hyperlipidemia E78.5 ; Type 2 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 ; Major depressive disorder, recurrent episode, moderate F33.1 and Chronic pain syndrome G89.4 [facility] [id number] [place] [address] 85937- 8804 Mar, [facility] [id number] [place] [address] 04876- 2073 Mar, [facility] [id number] [place] [address] 09828- 6445 Mar, [facility] [id number] [place] [address] 93545- 2200 Mar, [facility] [address] [place] [address] 70362- 2663 Feb, COPD (chronic obstructive pulmonary disease) J44.9 and Back pain M54.9 [facility] [address], [place] [address]- 6211 Feb, [facility] [id number] [place] [address] 81729- 3871 Feb, [facility] [address], [place] [address]- 9456 Feb, [facility] [id number] [place] [address] 53685- 3644 Feb, [facility] [address], [place] [address]- 9738 Feb, [facility] [id number] [place] [address] 50091- 7921 Feb, [facility] [id number] [place] [address] 12134- 4805 Feb, [facility] [id number] [place] [address] 33752- 1199 Feb, [facility] [address] [id number] [place] [address] 62424- 4740 Feb, Diabetes E11.9 ; Back pain M54.9 and COPD (chronic obstructive pulmonary disease) J44.9 [facility] [address] [place] [address] 18618- 7046 Jan, [facility] [id number] [place] [address] 67791- 9363 Jan, Major depression, recurrent F33.9 and Generalized anxiety disorder F41.1 [facility] [address] [place] [address] 91716- 9421 Jan, Chronic pain G89.29 [facility] [address], [place] [address]- 9061 Jan, [facility] [id number] [place] [address] 92052- 9140 Jan, [facility] [address] [place] [address] 20310- 7818 Jan, [facility] [address], [place] [address]- 9675 Jan, [facility] [id number] [place] [address] 53698- 4068 Jan, Nicotine dependence F17.200 [facility] [address] 07042- 4793 Jan, Nicotine dependence F17.200 and Back pain M54.9 [facility] [id number] [place] [address] 16824- 3317 Jan, [facility] [id number] [place] [address] 80641- 3048 28 Dec, 2014 [facility] [id number] [place] [address] 58664- 0723 25 Dec, 2014 Anxiety, generalized 300.02 and Major depression, recurrent 296.30 [facility] [id number] [place] [address] 10913- 5112 24 Dec, 2014 [facility] [id number] [place] [address] 57404- 9561 21 Dec, 2014 [facility] [id number] [place] [address] 45364- 8091 17 Dec, 2014 [facility] [id number] [place] [address] 15978- 6443 15 Dec, 2014 [facility] [id number] [place] [address] 67996- 8842 14 Dec, 2014 [facility] [id number] [place] [address] 62304- 9271 11 Dec, 2014 [facility] [id number] [place] [address] 26797- 7886 10 Dec, 2014 [facility] [id number] [place] [address] 32536- 0551 08 Dec, 2014 Skin tear 879.8 [facility] [address] [place] [address] 31922- 2311 08 Dec, 2014 Routine gynecological examination V72.31 ; Breast cancer screening V76.10 and Family history of breast cancer in first degree relative V16.3 [facility] [address], [place] [address]- 6711 Dec, [facility] [address] [place] [address] 40385- 9303 Dec, [facility] [address], [place] [address]- 6674 Nov, [facility] [id number] [place] [address] 64580- 6059 Nov, [facility] [address] [place] [address] 54667- 7685 Nov, Poor balance 781.99 and Vascular dementia, uncomplicated 290.40 [facility] [id number] [place] [address] 12501- 6707 Nov, [facility] [id number] [place] [address] 68788- 1069 Nov, Major depression, recurrent 296.30 and Anxiety, generalized 300.02 [facility] [id number] [place] [address] 18123- 4253 Nov, [facility] [id number] [place] [address] 30625- 1134 Nov, [facility] [address], [place] [address]- 6318 Nov, [facility] [address] [place] [address] 44829- 8733 Nov, [facility] [address], [place] [address]- 0600 Nov, Vascular dementia, uncomplicated 290.40 and Lumbago 724.2 [facility] [address], [place] [address]- 1424 Nov, [facility] [address] [place] [address] 44923- 5314 Nov, [facility] [address], [place] [address]- 0652 Nov, [facility] [address], [place] [address]- 3484 Oct, [facility] [address], [place] [address]- 2278 Oct, [facility] [id number] [place] [address] 43236- 1819 Oct, [facility] [address], [place] [address]- 0166 Oct, COPD (chronic obstructive pulmonary disease) 496 and Hyperlipidemia 272.4 [facility] [address], [place] [address]- 6979 Oct, Major depression, recurrent 296.30 and Anxiety, generalized 300.02 [facility] [id number] [address]- 7484 Oct, [facility] [address], [place] [address]- 2089 Oct, [facility] [address], [place] [address]- 9480 Oct, [facility] [address], [place] [address]- 2874 Sep, Lumbago 724.2 and Anxiety state, unspecified 300.00 [facility] [address], [place] [address]- 9463 Sep, [facility] [address], [place] [address]- 4828 Sep, [facility] [address], [place] [address]- 2123 August, [facility] [id number] [address]- 4849 August, Major depression, recurrent 296.30 ; Anxiety, generalized 300.02 and No condition on [place] II V71.09 [facility] [id number] [place] [address]- 3892 August, [facility] [address] [facility] [id number] [place] 5506 August, [facility] [address], [place] [address]- 3419 Jul, [facility] [address] [facility] [id number] [place] [address]- 9358 Jul, [facility] [address] [place] [address]- 8283 Jul, [facility] [id number] [place] [address]- 8227 Jun, [facility] [address] [place] [address]- 2098 Jun, [facility] [id number] [address]- 0501 Jun, [facility] [address] [place] [address]- 4184 Jun, [facility] [id number] [address]- 7849 Jun, [facility] [address] [place] [address]- 7769 Jun, [facility] [id number] [address]- 3653 23 Jun, 2014 [facility] [id number]- 8730 17 Jun, 2014 [facility] [address] [facility] [id number] 9106 Jun, [facility] [id number] 2193 Jun, [facility] [place] [facility] [address] [id number] [place] [address]- 5748 10 Jun, 2014 [facility] [place] [facility] [address] [id number] [place] [address]- 7878 10 Jun, 2014 [facility] [place] [facility] [address] [id number] [place] [address]- 1074 07 Jun, 2014 [facility] [place] [facility] [address] [id number] [place] [address]- 6644 07 Jun, 2014 [facility] [place] [facility] [address] [id number] [place] [address]- 3922 Jun, [facility] [place] [facility] [address] [id number] [place] [address]- 0716 Jun, 2014 [facility] [place] [facility] [address] [id number] [place] [address]- 0555 May, [facility] [place] [facility] [address] [id number] [place] [address]- 6370 May, 2014 [facility] [place] [facility] [address] [id number] [place] [address]- 6002 May, [facility] [place] [facility] [address] [facility] [id number] [place] [address]- 4148 May, 2014 [facility] [place] [facility] [address] [facility] [id number] [place] [address]- 1508 May, 2014 [facility] [place] [facility] [address] [id number] [place] [address]- 1644 May, 2014 [facility] [place] [facility] [address] [id number] [place] [address]- 2547 May, 2014 [facility] [place] [facility] [address] [id number] [place] [address]- 0938 12 May, 2014 [facility] [place] [facility] [address] [facility] [id number] [place] [address]- 6932 May, 2014 [facility] [place] [facility] [address] [facility] [id number] [place] [address]- 7549 May, 2014 [facility] [place] [facility] [address] [id number] [place] [address]- 8496 May, 2014 [facility] [place] [facility] [address] [id number] [place] [address]- 6306 May, 2014 [facility] [place] [facility] [address] [id number] [place] [address]- 0036 May, 2014 [facility] [place] [facility] [address] [id number] [place] [address]- 5858 May, [facility] [place] [facility] [address] [id number] [place] [address]- 8998 Apr, [facility] [place] [facility] [address] [id number] [place] [address]- 3659 Apr, [facility] [place] [facility] [address] [id number] [place] [address]- 5649 Apr, [facility] [place] [facility] [address] [id number] [place] [address]- 8554 Apr, [facility] [place] [facility] [address] [id number] [place] [address] Apr, [facility] [place] [facility] [address] [id number] [place] [address] Apr, [facility] [place] [facility] [address] [id number] [place] [address] Apr, [facility] [place] [facility] [address] [id number] [place] [address] Apr, [facility] [place] [facility] [address] [id number] [place] [address] Apr, [facility] [place] [facility] [address] [id number] [place] [address] Apr, [facility] [place] [facility] [address] [id number] [place] [address] Apr, [facility] [place] [facility] [address] [id number] [place] [address] Apr, [facility] [place] [facility] [address] [id number] [place] [address] Mar, [facility] [place] [facility] [address] [id number] [place] [address] 31 Mar, 2014 [facility] [place] [facility] [address] [id number] [place] [address] 30 Mar, 2014 [facility] [place] [facility] [address] [id number] [place] [address] 30 Mar, 2014 [facility] [place] [facility] [address] [id number] [place] [address] Mar, [facility] [place] [facility] [address] [id number] [place] [address] Mar, [facility] [place] [facility] [address] [id number] [place] [address] Mar, [facility] [place] [facility] [address] [id number] [place] [address] 19 Mar, 2014 [facility] [place] [facility] [address] [id number] [place] [address] 15 Mar, 2014 [facility] [place] [facility] [address] [id number] [place] [address] 15 Mar, 2014 [facility] [place] [facility] [address] [id number] [place] [address]- [address] 15 Mar, 2014 [facility] [place] [facility] [address] [id number] [place] [address]- [address] 15 Mar, 2014 [facility] [place] [facility] [address] [id number] [place] [address] 15 Mar, 2014 [facility] [place] [facility] [address] [id number] [place] [address] 15 Mar, 2014 [facility] [place] [facility] [address] [id number] [place] [address] Mar, [facility] [place] [facility] [address] [id number] [place] [address] Mar, [facility] [place] [facility] [address] [id number] [place] [address] Mar, [facility] [place] [facility] [address] [id number] [place] [address] Mar, [facility] [place] [facility] [address] [id number] [place] [address] Mar, [facility] [place] [facility] [address] [id number] [place] [address] Mar, [facility] [place] [facility] [address] [id number] [place] [address] Feb, [facility] [place] [facility] [address] [id number] [place] [address] Feb, [facility] [place] [facility] [address] [id number] [place] [address] Feb, [facility] [place] [facility] [address] [id number] [place] [address] Feb, [facility] [place] [facility] [address] [id number] [place] [address] Feb, [facility] [place] [facility] [address] [id number] [place] [address] Feb, [facility] [place] [facility] [address] [address] [id number], [place] [address] Feb, [facility] [place] [facility] [address] [id number] [place] [address] 56[address] Feb, [facility] [place] [facility] [address] [id number] [place] [address] 4523 Feb, [facility] [place] [facility] [address] [id number], [place] [address] 1728 Feb, [facility] [place] [facility] [address] [id number] [place] [address] 0889 Feb, [facility] [place] [facility] [address] [id number] [place] [address] Feb, [facility] [place] [facility] [address] [id number] [place] [address] Feb, [facility] [place] [facility] [address] [id number] [place] [address]- 3766 Feb, [facility] [place] [facility] [address] [id number] [place] [address]- 9151 Feb, [facility] [place] [facility] [address] [id number] [place] [address]- 0394 Feb, [facility] [place] [facility] [address] [id number] [place] [address]- 0570 Feb, [facility] [place] [facility] [address] [id number] [place] [address]- 3198 Jan, [facility] [place] [facility] [address] [id number] [place] [address]- 8695 Jan, [facility] [place] [facility] [address] [id number] [place] [address]- 9004 Jan, [facility] [place] [facility] [address] [id number] [place] [address]- 1007 Jan, [facility] [place] [facility] [address] [id number] [place] [address]- 8987 Jan, [facility] [place] [facility] [address] [id number] [place] [address]- 6147 Jan, [facility] [place] [facility] [address] [id number] [place] [address]- 6522 16 Jan, 2014 [facility] [place] [facility] [address] [id number] [place] [address] 16 Jan, 2014 [facility] [place] [facility] [address] [id number] [place] [address]- 6499 Jan, [facility] [place] [facility] [address] [id number] [place] [address]- 3471 Jan, [facility] [place] [facility] [address] [id number] [place] [address]- 0808 Jan, [facility] [place] [facility] [address] [id number] [place] [address]- 7723 Dec, [facility] [place] [facility] [address] [id number] [place] [address]- 1582 Dec, [facility] [place] [facility] [address] [id number] [place] [address]- 7015 Nov, [facility] [place] [facility] [address] [id number] [place] [address]- 7294 Nov, [facility] [place] [facility] [address] [id number] [place] [address]- 3498 Nov, [facility] [place] [facility] [address] [id number] [place] [address]- 3147 Nov, [facility] [place] [facility] [address] [id number] [place] [address]- 2677 Nov, [facility] [place] [facility] [address] [id number] [place] [address]- 1400 Nov, [facility] [place] [facility] [address] [id number], [place] [address] Nov, [facility] [place] [facility] [address] [id number], [place] [address] 5948 Oct, [facility] [place] [facility] [address] [id number] [place] [address]- 0620 Oct, [facility] [place] [facility] [address] [id number], [place] [address] 9854 Oct, [facility] [place] [facility] [address] [id number] [place] [address] Oct, [facility] [place] [facility] [address] [id number] [place] [address]- 9536 30 Sep, 2013 [facility] [place] [facility] [address] [id number] [place] [address]- 3153 Sep, [facility] [place] [facility] [address] [id number] [place] [address]- 3573 Sep, [facility] [place] [facility] [address] [id number] [place] [address]- 4078 Sep, [facility] [place] [facility] [address] [id number] [place] [address]- 3867 Sep, [facility] [place] [facility] [address] [id number] [place] [address]- 3837 Sep, [facility] [place] [facility] [address] [id number] [place] [address]- 0705 Sep, [facility] [place] [facility] [address] [id number] [place] [address]- 7626 Sep, [facility] [place] [facility] [address] [id number] [place] [address]- 6683 Sep, [facility] [place] [facility] [address] [id number] [place] [address]- 6256 Sep, [facility] [place] [facility] [address] [id number] [place] [address]- 2857 Sep, [facility] [place] [facility] [address] [id number] [place] [address]- 6892 Sep, [facility] [place] [facility] [address] [id number] [place] [address]- 1130 Sep, [facility] [place] [facility] [address] [id number] [place] [address]- 8814 Sep, [facility] [place] [facility] [address] [id number] [place] [address]- 3667 August, [facility] [place] [facility] [address] [id number] [place] [address]- 3809 August, [facility] [place] [facility] [address] [id number] [place] [address]- 7271 August, [facility] [address] [id number] [place] [address]- 9388 August, [facility] [address] [id number] [place] [address]- 7208 August, [facility] [address] [id number] [place] [address]- 5691 August, [facility] [address] [id number] [place] [address]- 6243 August, [facility] [address] [id number] [place] [address]- 5915 August, [facility] [address] [id number] [place] [address]- 7279 August, [facility] [address] [id number] [place] [address]- 3049 August, [facility] [address] [id number] [place] [address]- 9843 August, [facility] [address] [id number] [place] [address]- 8936 August, [facility] [address] [id number] [place] [address]- 4417 August, [facility] [address] [id number] [place] [address]- 0867 August, [facility] [place] [facility] [address] [id number] [place] [address]- 7883 August, [facility] [place] [facility] [address] [id number] [place] [address]- 5897 August, [facility] [place] [facility] [address] [id number] [place] [address]- 7424 August, [facility] [place] [facility] [address] [id number] [place] [address]- 7779 August, [facility] [place] [facility] [address] [id number] [place] [address] August, [facility] [place] [facility] [address] [id number] [place] [address]- 8185 Jul, [facility] [place] [facility] [address] [id number] [place] [address]- 1941 Jul, [facility] [place] [facility] [address] [id number] [place] [address]- 6099 Jul, [facility] [place] [facility] [address] [id number] [place] [address]- 4988 Jul, [facility] [place] [facility] [address] [id number] [place] [address]- 2388 Jun, [facility] [place] [facility] [address] [id number] [place] [address]- 7779 Jun, [facility] [place] [facility] [address] [id number] [place] [address]- 7886 Jun, [facility] [place] [facility] [address] [id number] [place] [address]- 4064 Jun, [facility] [place] [facility] [address] [id number] [place] [address]- 6106 Jun, [facility] [place] [facility] [address] [id number] [place] [address]- 4350 Jun, [facility] [place] [facility] [address] [id number] [place] [address]- 2633 Jun, [facility] [place] [facility] [address] [id number] [place] [address]- 4157 Jun, [facility] [place] [facility] [address] [id number] [place] [address]- 7271 Jun, [facility] [place] [facility] [address] [id number] [place] [address]- 6956 Jun, [facility] [place] [facility] [address] [id number] [place] [address]- 5823 May, [facility] [place] [facility] [address] [id number] [place] [address]- 1296 May, [facility] [place] [facility] [address] [id number] [place] [address]- 9286 May, [facility] [place] [facility] [address] [id number] [place] [address]- 4457 May, [facility] [place] [facility] [address] [id number] [place] [address]- 254 May, [facility] [place] [facility] [address] [id number] [place] [address]- 0096 May, [facility] [place] [facility] [address] [facility] [id number] [place] [address]- 1668 May, [facility] [place] [facility] [address] [facility] [id number] [place] [address]- 1864 May, [facility] [place] [facility] [address] [id number] [place] [address]- 1434 May, [facility] [place] [facility] [address] [facility] [id number] [place] [address]- 4252 May, [facility] [place] [facility] [address] [facility] [id number] [place] [address]- 3159 18 May, 2013 [facility] [place] [facility] [address] [facility] [id number] [place] [address]- 5195 17 May, 2013 [facility] [place] [facility] [address] [facility] [id number] [place] [address]- 2546 May, [facility] [place] [facility] [address] [id number] [place] [address]- 8750 May, [facility] [place] [facility] [address] [facility] [id number] [place] [address]- 4456 10 May, 2013 [facility] [place] [facility] [address] [facility] [id number] [place] [address]- 8882 07 May, 2013 [facility] [address] [id number] [place] [address]- 4538 07 May, 2013 [facility] [address] [id number] [place] [address]- 3460 17 Apr, 2013 [facility] [address] [id number] [place] [address]- 2398 Apr, [facility] [address] [id number] [place] [address]- 3831 Apr, [facility] [address] [id number] [place] [address]- 3026 Apr, [facility] [address] [id number] [place] [address]- 8759 Apr, [facility] [address] [id number] [place] [address]- 7984 Apr, [facility] [address] [id number] [place] [address]- 3192 Apr, [facility] [address] [id number] [place] [address]- 9732 Mar, [facility] [address] [id number] [place] [address]- 9579 Mar, [facility] [address] [id number] [place] [address]- 4656 Mar, [facility] [address] [id number] [place] [address]- 0540 Mar, [facility] [address] [id number] [place] [address]- 2328 Mar[facility] [address] [id number] [place] [address]- 6246 Mar, [facility] [address] [id number] [place] [address]- 9450 Mar, [facility] [place] [facility] [address] [id number] [place] [address]- 5936 Mar, [facility] [place] [facility] [address] [id number] [place] [address]- 7178 Mar, [facility] [place] [facility] [address] [id number] [place] [address]- 6211 Mar, [facility] [place] [facility] [address] [id number] [place] [address]- 5292 Mar, [facility] [address] [id number] [place] [address]- 7894 Feb, [facility] [place] [facility] [address] [id number] [place] [address]- 1947 Feb, [facility] [address] [id number] [place] [address]- 1326 Feb, [facility] [address] [id number] [place] [address]- 0761 20 Feb, 2013 [facility] [place] [facility] [address] [id number] [place] [address]- 4812 Feb, [facility] [place] [facility] [address] [id number] [place] [address]- 5673 19 Feb, 2013 [facility] [place] [facility] [address] [id number] [place] [address]- 1021 15 Feb, 2013 [facility] [place] [facility] [address] [id number], [place] [address]- 8671 14 Feb, 2013 [facility] [place] [facility] [address] [id number] [place] [address]- 2217 14 Feb, 2013 [facility] [place] [facility] [address] [id number], [place] [address]- 2776 13 Feb, 2013 [facility] [place] [facility] [address] [id number], [place] [address]- 9982 13 Feb, 2013 [facility] [place] [facility] [address] [id number], [place] [address]- 8813 Feb, [facility] [place] [facility] [address] [id number] [place] [address]- 2687 Feb, [facility] [place] [facility] [address] [id number] [place] [address]- 9783 Feb, [facility] [place] [facility] [address] [id number] [place] [address]- 9778 Feb, [facility] [place] [facility] [address] [id number] [place] [address]- 1859 Feb, [facility] [place] [facility] [address] [id number] [place] [address]- 3751 Jan, [facility] [place] [facility] [address] [id number] [place] [address]- 9038 Jan, [facility] [place] [facility] [address] [id number] [place] [address]- 7136 Jan, [facility] [place] [facility] [address] [id number] [place] [address]- 9738 Jan, [facility] [place] [facility] [address] [id number] [place] [address]- 2596 Jan, [facility] [place] [facility] [address] [id number] [place] [address]- 1473 Jan, [facility] [place] [facility] [address] [id number], [place] [address]- 8552 Jan, [facility] [place] [facility] [address] [id number], [place] [address]- 7185 Jan, [facility] [place] [facility] [address] [id number] [place] [address]- 4201 10 Jan, 2013 [facility] [place] [facility] [address] [id number] [place] [address]- 0919 27 Dec, 2012 [facility] [place] [facility] [address] [id number] [place] [address]- 9082 20 Dec, 2012 [facility] [place] [facility] [address] [id number] [place] [address]- 8632 19 Dec, 2012 [facility] [place] [facility] [address] [id number] [place] [address]- 9425 10 Dec, 2012 [facility] [place] [facility] [address] [id number] [place] [address]- 3156 04 Dec, 2012 [facility] [place] [facility] [address] [id number] [place] [address]- 4052 03 Dec, 2012 [facility] [place] [facility] [address] [id number] [place] [address]- 1294 Nov, [facility] [place] [facility] [address] [id number] [place] [address]- 6572 Nov, [facility] [place] [facility] [address] [id number] [place] [address]- 5359 Nov, [facility] [place] [facility] [address] [id number] [place] [address]- 3804 Nov, [facility] [place] [facility] [address] [id number] [place] [address]- 5020 Nov, [facility] [place] [facility] [address] [id number] [place] [address]- 9750 Nov, [facility] [place] [facility] [address] [id number] [place] [address]- 0710 Nov, [facility] [place] [facility] [address] [id number] [place] [address]- 2966 Nov, [facility] [place] [facility] [address] [id number] [place] [address]- 2549 14 Nov, 2012 [facility] [place] [facility] [address] [id number] [place] [address]- 9113 Nov, [facility] [place] [facility] [address] [id number] [place] [address]- 2546 Oct, [facility] [place] [facility] [address] [id number] [place] [address]- 6463 Oct, [facility] [place] [facility] [address] [id number] [place] [address]- 8933 Oct, [facility] [place] [facility] [address] [id number] [place] [address]- 3601 Oct, [facility] [place] [facility] [address] [id number] [place] [address]- 4654 Oct, [facility] [place] [facility] [address] [id number] [place] [address]- 2849 Oct, [facility] [place] [facility] [address] [id number] [place] [address]- 8561 Oct, [facility] [place] [facility] [address] [id number] [place] [address]- 9468 Oct, [facility] [place] [facility] [address] [id number] [place] [address]- 0527 Sep, [facility] [place] [facility] [address] [id number] [place] [address]- 0477 Sep, [facility] [place] [facility] [address] [id number] [place] [address]- 1355 Sep, [facility] [place] [facility] [address] [id number] [place] [address]- 1027 Sep, [facility] [place] [facility] [address] [id number] [place] [address]- 7687 Sep, [facility] [place] [facility] [address] [id number], [place] [address]- 4271 Sep, [facility] [place] [facility] [address] [id number] [place] [address]- 6592 Sep, [facility] [place] [facility] [address] [id number] [place] [address]- 6387 Sep, [facility] [place] [facility] [address] [id number] [place] [address]- 7259 August, [facility] [place] [facility] [address] [id number] [place] [address]- 4092 August, [facility] [address] [id number] [place] [address]- 5175 August, [facility] [address] [id number] [place] [address]- 7107 August, [facility] [address] [id number] [place] [address]- 6328 August, [facility] [address] [id number] [place] [address]- 7885 Jul, [facility] [address] [id number] [place] [address]- 1413 Jul, [facility] [address] [id number] [place] [address]- 6869 Jul, [facility] [address] [id number] [place] [address]- 2968 Jul, [facility] [address] [id number] [place] [address]- 4580 Jul, [facility] [address] [id number] [place] [address]- 0520 18 Jun, 2012 [facility] [address] [id number] [place] [address]- 5049 18 Jun, 2012 [facility] [address] [id number] [place] [address]- 5054 15 Jun, 2012 [facility] [address] [id number] [place] [address] 14 Jun, 2012 [facility] [place] [facility] [address] [id number] [place] [address] 12 Jun, 2012 [facility] [place] [facility] [address] [id number] [place] [address] 08 Jun, 2012 [facility] [address] [id number] [place] [address] 08 Jun, 2012 [facility] [address] [id number] [place] [address] Jun, [facility] [address] [id number] [place] [address] Jun, [facility] [address] [id number] [place] [address] May, [facility] [address] [id number] [place] [address] May, [facility] [address] [id number] [place] [address] May, [facility] [address] [id number] [place] [address] May, [facility] [address] [id number] [place] [address] 29[address] Apr, [facility] [address] [id number] [place] [address] 1144 Apr, [facility] [address] [id number] [place] [address] Apr, [facility] [address] [id number] [place] [address] Apr, [facility] [address] [id number] [place] [address] 2983 Apr, [facility] [address] [id number] [place] [address] Apr, [facility] [address] [id number] [place] [address]- [address] Apr, [facility] [address] [id number] [place] [address] Mar, [facility] [address] [place] [id number] Mar, [facility] [address] [id number] [place] [address] Mar, [facility] [place] [facility] [address] [id number] [place] [address] Mar, [facility] [place] [facility] [address] [id number] [place] [address]26 Mar, [facility] [place] [facility] [address] [id number] [place] [address] 3435 Mar, [facility] [place] [facility] [address] [id number] [place] [address]- [address]10 Mar, [facility] [place] [facility] [address] [id number] [place] [address] 18[address] Mar, [facility] [place] [facility] [address] [id number] [place] [address] Mar, [facility] [place] [facility] [address] [id number] [place] [address] 9388 Mar, [facility] [place] [facility] [address] [id number] [place] [address]- 0749 Mar, [facility] [place] [facility] [address] [id number] [place] [address]855 Mar, [facility] [place] [facility] [address] [id number] [place] [address] 8413 Mar, [facility] [place] [facility] [address] [id number] [place] [address]- 8294 Mar, [facility] [place] [facility] [address] [id number], [place] [address] Mar, [facility] [place] [facility] [address] [id number] [place] [address] 49[address] Mar, [facility] [place] [facility] [address] [id number] [place] [address] 6139 Mar, [facility] [place] [facility] [address] [id number] [place] [address] 3976 Feb, [facility] [place] [facility] [address] [id number] [place] [address]- 5587 Feb, [facility] [place] [facility] [address] [id number] [place] [address] 8[address] Feb, [facility] [place] [facility] [address] [id number] [place] [address]- [address]206 Feb, [facility] [place] [facility] [address] [id number] [place] [address]- [address]30 Feb, [facility] [place] [facility] [address] [id number] [place] [address]- 2977 Feb, [facility] [place] [facility] [address] [id number] [place] [address]- [address] Feb, [facility] [place] [facility] [address] [id number] [place] [address]393 Feb, [facility] [place] [facility] [address] [id number] [place] [address]- [address]233 Feb, [facility] [place] [facility] [address] [id number] [place] [address] 5847 Feb, [facility] [place] [facility] [address] [id number] [place] [address]- 3569 Feb, [facility] [place] [facility] [address] [id number] [place] [address] 5423 Feb, [facility] [place] [facility] [address] [id number] [place] [address]- 8969 Feb, [facility] [place] [facility] [address] [id number], [place] [address] Feb, [facility] [place] [facility] [address] [id number] [place] [address]- 5139 Feb, [facility] [place] [facility] [address] [id number] [place] [address]- 6673 Feb, [facility] [place] [facility] [address] [id number], [place] [address] Jan, [facility] [place] [facility] [address] [id number] [place] [address]- 6048 Jan, [facility] [place] [facility] [address] [id number] [place] [address]- 0451 Jan, [facility] [place] [facility] [address] [id number] [place] [address]- 8352 Jan, [facility] [place] [facility] [address] [id number] [place] [address]- 8617 Jan, [facility] [place] [facility] [address] [id number] [place] [address]- 0756 Jan, [facility] [place] [facility] [address] [id number] [place] [address]- 9407 Jan, [facility] [place] [facility] [address] [id number] [place] [address] 6225 Jan, [facility] [place] [facility] [address] [id number] [place] [address]- 3817 Jan, [facility] [place] [facility] [address] [id number] [place] [address]- 6278 Jan, [facility] [place] [facility] [address] [id number] [place] [address] 9508 Jan, [facility] [place] [facility] [address] [id number] [place] [address]- 7851 Jan, [facility] [place] [facility] [address] [id number], [place] [address] 4[address] Jan, [facility] [place] [facility] [address] [id number] [place] [address]- 7201 Jan, [facility] [place] [facility] [address] [id number] [place] [address]- 3195 Jan, [facility] [place] [facility] [address] [id number] [place] [address]- 4637 Jan, [facility] [place] [facility] [address] [id number], [place] [address] 04 Jan, 2012 [facility] [place] [facility] [address] [id number] [place] [address]- 3576 21 Dec, 2011 [facility] [place] [facility] [address] [id number] [place] [address]- 2486 20 Dec, 2011 [facility] [place] [facility] [address] [id number] [place] [id number] 2546 18 Dec, 2011 [facility] [place] [facility] [address] [id number] [place] [address] 2546 18 Dec, 2011 [facility] [place] [facility] [address] [id number] [place] [address] 2546 10 Dec, 2011 [facility] [place] [facility] [address] [id number] [place] [address] 4886 10 Dec, 2011 [facility] [place] [facility] [address] [id number] [place] [address] 3434 10 Dec, 2011 [facility] [place] [facility] [address] [id number] [place] [address] 4230 07 Dec, 2011 [facility] [place] [facility] [address] [id number] [place] [address] 1866 30 Nov, 2011 [facility] [place] [facility] [address] [id number] [place] [address] 7875 Nov, [facility] [place] [facility] [address] [id number] [place] [address]- [address]86 Nov, [facility] [place] [facility] [address] [id number] [place] [address]- 254 Nov, [facility] [place] [facility] [address] [id number] [place] [address] 2546 Nov, [facility] [place] [facility] [address] [id number] [place] [address] 8787 Nov, [facility] [place] [facility] [address] [id number] [place] [address]- 2545 30 Oct, 2011 [facility] [place] [facility] [address] [id number] [place] [address]- 9892 30 Oct, 2011 [facility] [address] [id number] [place] [address] 7521 Oct, [facility] [place] [facility] [address] [id number] [place] [address]- 3456 Oct, [facility] [address] [id number] [place] [address] 6149 Oct, [facility] [place] [facility] [address] [id number] [place] [address] 3957 Oct, [facility] [address] [id number] [place] [address]- 9410 Oct, [facility] [place] [facility] [address] [id number] [place] [address]- 2561 Sep, [facility] [place] [facility] [address] [id number] [place] [address]- 5253 Sep, [facility] [place] [facility] [address] [id number] [place] [address]- 3288 Sep, [facility] [place] [facility] [address] [id number] [place] [address]- 4707 Sep, [facility] [address] [id number] [place] [address]- 2594 Sep, [facility] [place] [facility] [address] [id number] [place] [address]- 254 15 Sep, 2011 [facility] [place] [facility] [address] [id number] [place] [address]- 5533 14 Sep, 2011 [facility] [place] [facility] [address] [id number] [place] [address]- 7635 11 Sep, 2011 [facility] [place] [facility] [address] [id number] [place] [address]- 1787 05 Sep, 2011 [facility] [place] [facility] [address] [id number] [place] [address]- 4636 Sep, [facility] [address] [id number] [place] [address] 7301 August, [facility] [place] [facility] [address] [id number] [place] [address] 5416 August, [facility] [place] [facility] [address] [id number] [place] [address]- 7123 August, [facility] [place] [facility] [address] [id number] [place] [address]- 5196 August, [facility] [address] [id number] [place] [address]- 7984 August, [facility] [place] [facility] [address] [id number] [place] [address] 8310 Jul, [facility] [place] [facility] [address] [id number] [place] [address] 2214 Jul, [facility] [address] [id number] [place] [address]- 8471 Jul, [facility] [place] [facility] [address] [id number] [place] [address]- 6878 Jul, [facility] [place] [facility] [address] [id number] [place] [address]- 9216 Jul, [facility] [place] [facility] [address] [id number] [place] [address]- 4437 Jul, [facility] [place] [facility] [address] [id number], [place] [address] 24[address] Jul, [facility] [place] [facility] [address] [id number] [place] [address] 7217 Jun, [facility] [place] [facility] [address] [id number] [place] [address]- 4236 Jun, [facility] [place] [facility] [address] [id number] [place] [address]- 4008 Jun, [facility] [place] [facility] [address] [id number], [place] [address]157 Jun, [facility] [place] [facility] [address] [id number] [place] [address]- 2370 Jun, [facility] [place] [facility] [address] [id number] [place] [address]- 8106 May, [facility] [place] [facility] [address] [id number] [place] [address]- 9066 May, [facility] [place] [facility] [address] [id number] [place] [address]- 6167 May, [facility] [place] [facility] [address] [id number] [place] [address]- 9236 May, [facility] [place] [facility] [address] [id number] [place] [address]- 1381 May, [facility] [place] [facility] [address] [facility] [id number] [place] [address]- 1242 May, [facility] [place] [facility] [address] [id number] [place] [address]- 2407 Apr, [facility] [place] [facility] [address] [facility] [id number] [place] [address]- 6071 Mar, [facility] [place] [facility] [address] [facility] [id number] [place] [address]- 5133 Feb, [facility] [place] [facility] [address] [id number] [place] [address] 254 Feb, [facility] [place] [facility] [address] [id number] [place] [address]- 2544 Feb, [facility] [place] [facility] [address] [id number] [place] [address]- 7440 Feb, [facility] [place] [facility] [address] [facility] [id number] [place] [address]- 9345 Jan, [facility] [place] [facility] [address] [id number] [place] [address]- 1709 Jan, [facility] [place] [facility] [address] [id number] [place] [address]- 5887 26 Jan, 2011 [facility] [address] [id number] [place] [address] 24 Jan, 2011 [facility] [address] [id number] [place] [address]- 2374 14 Jan, 2011 [facility] [address] [id number] [place] [address]- 0917 19 Dec, 2010 [facility] [address] [id number] [place] [address]- 7085 Oct, [facility] [address] [id number] [place] [address]- 5536 August, [facility] [address] [id number] [place] [address]- 7476 29 Mar, 2010 [facility] [address] [id number] [place] [address]- 5494 27 Mar, 2010 [facility] [address] [id number] [place] [address]- 7592 16 Mar, 2010 [facility] [address] [id number] [place] [address]- 3751 15 Mar, 2010 [facility] [address] [id number] [place] [address]- 9296 15 Mar, 2010 [facility] [place] [facility] [address] [id number] [place] [address]- 2222 08 Mar, 2010 [facility] [place] [facility] [address] [id number] [place] [address]- 6059 03 Mar, 2010 [facility] [place] [facility] [address] [id number] [place] [address]- 1247 24 Feb, 2010 [facility] [place] [facility] [address] [id number] [place] [address]- 7892 24 Feb, 2010 [facility] [place] [facility] [address] [id number], [place] [address]- 9198 15 Feb, 2010 [facility] [place] [facility] [address] [id number] [place] [address]- 2649 19 Jan, 2010 [facility] [place] [facility] [address] [id number], [place] [address]- 2404 Jan, [facility] [place] [facility] [address] [id number] [place] [address]- 8332 Jan, [facility] [place] [facility] [address] [id number], [place] [address]- 0239 Nov, [facility] [place] [facility] [address] [id number] [place] [address]- 8467 Sep, [facility] [place] [facility] [address] [id number], [place] [address]- 0841 August, [facility] [place] [facility] [address] [id number], [place] [address]- 7652 30 Mar, 2009 [facility] [place] [facility] [address] [id number], [place] [address]- 7490 Mar, [facility] [place] [facility] [address] [id number], [place] [address]- 8006 17 Feb, 2009 [facility] [place] [facility] [address] [id number], [place] [address]- 2925 Feb, [facility] [place] [facility] [address] [id number], [place] [address]- 5353 10 Feb, 2009 [facility] [place] [facility] [address] [id number], [place] [address]- 7609 10 Feb, 2009 [facility] [place] [facility] [address] [id number], [place] [address]- 4707 06 Feb, 2009 [facility] [place] [facility] [address] [id number], [place] [address]- 5929 27 Jan, 2009 [facility] [place] [facility] [address] [id number], [place] [address]- 7006 Jan, [facility] [place] [facility] [address] [id number], [place] [address] Jan, [facility] [address] [id number], [place] [address]160 Jan, [facility] [id number], [place] [address]- 9491 Nov, [facility] [id number], [place] [address]- 3610 Sep, [facility] [id number], [place] [address] 0762 August, [facility] [id number] [place] [address] 6288 Jul, [facility] [id number], [place] [address]- 2124 May, IMMUNIZATIONS No Known Immunizations SOCIAL HISTORY Never Assessed REASON FOR VISIT refill request PLAN OF CARE VITAL SIGNS MEDICATIONS Medication Instructions Dosage Frequency Start Date End Date Duration Status Bacl[place]en 20 MG TAKE ONE TABLET BY MOUTH THREE TIMES DAILY WITH FOOD OR MILK 30 Active RESULTS No Results PROCEDURES No [...] Knee Surgery 07/16/17 Hospitalization History [facility] [place]- left hand/wrist swelling 10/09/2017
--- OUTSIDE RECORDS SUMMARY | 2018-01-01 11:51 | XMS REPORT ---
Author Author SENAIT DUNLAP [facility] Address [address] [place] [address] Care Team Providers Care Project Asst Name Role Phone SENAIT DUNLAP Unavailable PROBLEMS Type Condition ICD9-CM Code QWV27-LZ Code Onset Dates Condition Status SNOMED Code Problem History of common bile duct surgery Z98.89 Active 064996621 Problem Barretts esophagus K22.70 Active 021559833 Problem 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 Active 71744831 Problem Colon polyp K63.5 Active 14436792 Problem Bilateral low back pain without sciatica M54.5 Active 291380961 Problem Screening breast examination Z12.39 Active 654475779 Problem Postmenopausal Z78.0 Active 83480067 Problem Osteopenia M85.80 Active 519937126 Problem Cigarette nicotine dependence without complication F17.210 Active 64694972 Problem Type 2 diabetes mellitus with diabetic peripheral angiopathy without gangrene E11.51 Active 099045895 Problem Vascular dementia without behavioral disturbance F01.50 Active [id number] Problem Unspecified atherosclerosis of [place] arteries of extremities, unspecified extremity I70.209 Active 369031372748029 Problem Arthritis M19.90 Active 1951739 Problem Chronic atrial fibrillation I48.2 Active 311270107 Problem Chronic obstructive pulmonary disease with acute lower respiratory infection J44.0 Active 687371983 Problem Other chronic pancreatitis K86.1 Active 565038679 Problem Stress incontinence of urine N39.3 Active 54954171 Problem Controlled type 2 diabetes mellitus without complication, without long -term current use of insulin E11.9 Active 098147241 Problem Unspecified psychosis F29 Active 90101775 Problem Xeroderma Q80.9 Active 00744071 Problem COPD (chronic obstructive pulmonary disease) J44.9 Active 83923664 Problem Dementia without behavioral disturbance, unspecified dementia type F03.90 Active 20685156 Problem Gastroparesis K31.84 Active 635550702 Problem Type 2 diabetes mellitus with diabetic neuropathy, without long-term current use of insulin E11.40 Active 11622856 Problem Osteoporosis M81.0 Active 44251967 Problem Atherosclerosis of [place] artery of both lower extremities with intermittent claudication I70.213 Active 529634589129396 Problem Hyperlipidemia E78.5 Active 45234069 Problem Diabetic polyneuropathy associated with type 2 diabetes mellitus E11.42 Active 36972249 Problem Essential tremor G25.0 Active 00048410 Problem 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.118 Active 9249530389166 Problem Generalized anxiety disorder F41.1 Active 291122778 Problem Gastroesophageal reflux disease, esophagitis presence not specified K21.9 Active 800925763 Problem Coronary artery disease involving [place] coronary artery of [place] 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 I25.118 Active 5820406290096 Problem Postconcussion syndrome F07.81 Active 35771197 Problem Chronic pain syndrome G89.4 Active 179525454 Problem Migraine without aura and without status migrainosus, not intractable G43.009 Active 844070696 Problem Paroxysmal atrial fibrillation I48.0 Active 668390931 Problem Migraine without aura and with status migrainosus, not intractable G43.001 Active 893967699 Problem Cervicalgia M54.2 Active 8713732375613 Problem Acute exacerbation of chronic obstructive pulmonary disease (COPD) J44.1 Active 555685292 Problem Major depressive disorder, recurrent episode, moderate F33.1 Active 690439912 Problem Crohn''s disease without complication, unspecified gastrointestinal tract location K50.90 Active 68610725 Problem Chronic fatigue R53.82 Active 80181433 Problem Bipolar affective disorder, currently depressed, moderate F31.32 Active 438408428 ALLERGIES No Information ENCOUNTERS Encounter Location Date Diagnosis [address] [facility] [id number] [address] Nov, [facility] [id number] [address] Nov, [place] [id number] [address] Oct, [facility] [id number] [address] Oct, Bipolar affective disorder, currently depressed, moderate F31.32 ; Vascular dementia without behavioral disturbance F01.50 and Generalized anxiety disorder F41.1 [facility] [id number] [place] [address] 57491- 6822 Oct, [facility] [id number] [place] [address] 75480- 5270 Oct, [facility] [id number] [place] [address] 11478- 0059 Oct, Edema of both legs R60.0 [facility] [id number] [place] [address] 93802- 8275 Oct, [facility] [id number] [place] [address] 27817- 0289 Sep, [facility] [id number] [place] [address] 82519- 4766 Sep, [facility] [id number] [place] [address] 74867- 4741 Sep, [facility] [id number] [place] [address] 82492- 8657 Sep, Encounter for well woman exam with routine gynecological exam Z01.419 ; Screening for STDs (sexually transmitted diseases) Z11.3 ; Screening breast examination Z12.31 and Overweight (BMI 25.0-29.9) E66.3 [facility] [address] [address] 4085 Sep, [facility] [id number] [address] 7658 Sep, [facility] [id number] [place] [address] 33021- 3463 Sep, [facility] [id number] [place] [address] 66156- 0276 August, [facility] [id number] [address] 89[address] August, [facility] [id number] [address] August, Type 2 diabetes mellitus with diabetic neuropathy, without long-term current use of insulin E11.40 and Sprain of right ankle, unspecified ligament, initial encounter S93.401A [facility] [id number] [address] 8597 August, [facility] [id number] [place] [address] 75776- 0382 August, [facility] [id number] [place] [address] 11388- 0859 August, [facility] [id number] [place] [address] 79156- 3232 August, Gastroesophageal reflux disease, esophagitis presence not specified K21.9 [facility] [id number] [place] [address] 88574- 5806 August, [facility] [id number] [place] [address] 05488- 0191 August, [facility] [id number] [place] [address] 65792- 3284 August, [facility] [id number] [place] [address] 77028- 8216 August, Type 2 diabetes mellitus with diabetic neuropathy, without long-term current use of insulin E11.40 and Elevated liver enzymes R74.8 [facility] [id number] [place] [address] 31050- 0230 Jul, [facility] [id number] [place] [address] 69262- 8664 Jul, Cough R05 [facility] [id number] [place] [address] 66821- 3935 Jul, [facility] [address] [address]- 0767 Jul, [facility] [id number] [place] [address] 48513- 9368 Jul, Bipolar affective disorder, currently depressed, moderate F31.32 ; Vascular dementia without behavioral disturbance F01.50 and Generalized anxiety disorder F41.1 [facility] [id number] [place] [address] 66640- 7161 Jul, [facility] [address] 32628- 0174 Jul, Type 2 diabetes mellitus with diabetic neuropathy, without long-term current use of insulin E11.40 and Elevated liver enzymes R74.8 [facility] [address] 21935- 3936 Jul, [facility] [id number] [place] [address] 80420- 6534 Jul, [facility] [id number] [place] [address] 50092- 1457 Jul, [facility] [id number] [place] [address] 99202- 5670 Jul, Post-menopausal Z78.0 [facility] [address] 26713- 2411 Jul, Stress incontinence of urine N39.3 [facility] [id number] [place] [address] 83292- 8298 Jul, [facility] [id number] [place] [address] 85436- 3499 Jul, [facility] [id number] [place] [address] 72577- 1544 Jul, Stress incontinence of urine N39.3 and Cough R05 [facility] [id number] [place] [address] 63012- 0863 Jul, [facility] [id number] [place] [address] 15777- 0895 Jul, [facility] [id number] [place] [address] 10319- 6086 Jul, [facility] [id number] [place] [address] 35306- 6095 Jul, Gastroesophageal reflux disease, esophagitis presence not specified K21.9 [facility] [id number] [place] [address] 40856- 8123 Jun, Diabetic polyneuropathy associated with type 2 diabetes mellitus E11.42 [facility] [id number] [place] [address] 15001- 7321 Jun, Diabetic polyneuropathy associated with type 2 diabetes mellitus E11.42 ; Coronary artery disease involving [place] coronary artery of [place] 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 I25.118 and Paroxysmal atrial fibrillation I48.0 [place] [id number] [place] [address] 00253- 6914 Jun, [place] [id number] [place] [address] 03985- 1178 Jun, [facility] [id number] [place] [address] 99791 254 Jun, Gastroenteritis K52.9 [facility] [id number] [place] [address] 45246 2546 Jun, Gastroenteritis K52.9 [facility] [id number] [place] [address] 48249 2543 Jun, [facility] [id number] [place] [address] 90285 2547 Jun, [facility] [id number] [place] [address] 64667- 6268 Jun, Sprain of right ankle, unspecified ligament, initial encounter S93.401A ; Type 2 diabetes mellitus with diabetic neuropathy, without long-term current use of insulin E11.40 ; Atherosclerosis of [place] artery of both lower extremities with intermittent claudication I70.213 ; 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.118 ; Chronic atrial fibrillation I48.2 and Crohn''s disease without complication, unspecified gastrointestinal tract location K50.90 [facility] [id number] [place] [address] 60445 -6875 17 Jun, 2017 Chronic obstructive pulmonary disease with acute lower respiratory infection J44.0 and Cough R05 [facility] [id number] [place] [address] 43478- 0111 Jun, [facility] [id number] [place] [address] 13110- 7416 Jun, Coughing R05 ; Unspecified atherosclerosis of [place] arteries of extremities, unspecified extremity I70.209 ; Type 2 diabetes mellitus with diabetic peripheral angiopathy without gangrene E11.51 ; Crohn''s disease without complication, unspecified gastrointestinal tract location K50.90 ; Other chronic pancreatitis K86.1 and Chronic atrial fibrillation I48.2 [facility] [id number] [place] [address] 31711 -2887 Jun, [place] [id number] [place] [address] 11627- 8596 Jun, Bipolar affective disorder, currently depressed, moderate F31.32 ; Vascular dementia without behavioral disturbance F01.50 and Generalized anxiety disorder F41.1 [place] [id number] [place] [address] 16072- 5021 May, Generalized anxiety disorder F41.1 [place] [id number] [place] [address] 61146- 6652 May, [place] [id number] [place] [address] 62255- 0631 May, [place] [id number] [place] [address] 57244- 7293 15 May, 2017 Coughing R05 [place] [id number] [place] [address] 48853- 5818 09 May, 2017 [place] [id number] [place] [address] 76062- 5528 May, Bipolar affective disorder, currently depressed, moderate F31.32 ; Vascular dementia without behavioral disturbance F01.50 and Generalized anxiety disorder F41.1 [place] [id number] [place] [address] 77908- 4872 Apr, Generalized anxiety disorder F41.1 [place] [id number] [place] [address] 12133- 0955 Apr, [place] [id number] [place] [address] 44442- 3192 Apr, Vascular dementia without behavioral disturbance F01.50 ; Generalized anxiety disorder F41.1 and Bipolar affective disorder, currently depressed, moderate F31.32 [place] [id number] [place] [address] 58579- 4940 Apr, Generalized anxiety disorder F41.1 [facility] [id number] [place] [address] 77059 -5431 Apr, Cough R05 and Acute exacerbation of chronic obstructive pulmonary disease (COPD) J44.1 [place] [id number] [place] [address] 57497- 2690 Apr, [facility] [id number] [place] [address] 09091 -0702 Mar, Cough R05 and Cigarette nicotine dependence without complication F17.210 [place] [id number] [place] [address] 85644- 2306 Mar, [place] [id number] [place] [address] 79843- 2576 Feb, Generalized anxiety disorder F41.1 ; Major depressive disorder, recurrent episode, moderate F33.1 ; Vascular dementia without behavioral disturbance F01.50 and Unspecified psychosis F29 [place] [id number] [place] [address] 04551- 3497 Feb, [place] [id number] [place] [address] 75320- 8485 Feb, [place] [id number] [place] [address] 40927- 1473 Feb, Generalized anxiety disorder F41.1 [place] [id number] [place] [address] 98289- 6313 Feb, Generalized anxiety disorder F41.1 [place] [address] 36689- 6095 Feb, Dizziness R42 ; Chronic fatigue R53.82 ; Postconcussion syndrome F07.81 ; Fall, initial encounter W19.XXXA and Disorientation R41.0 [place] [address] 02507- 2574 Feb, Postconcussion syndrome F07.81 ; Injury of head, initial encounter S09.90XA ; Fall, initial encounter W19.XXXA ; Disorientation R41.0 and Acute cystitis with hematuria N30.01 [place] [address] 88654- 4067 Jan, Gastroesophageal reflux disease, esophagitis presence not specified K21.9 ; Post-menopausal Z78.0 and Migraine without aura and without status migrainosus, not intractable G43.009 [place] [id number] [place] [address] 73818- 3049 Jan, [place] [id number] [place] [address] 77876- 1883 Jan, Generalized anxiety disorder F41.1 ; Major depressive disorder, recurrent episode, moderate F33.1 ; Vascular dementia without behavioral disturbance F01.50 and Unspecified psychosis F29 [place] [address] 57307- 7890 Jan, Pneumonia of left lower lobe due to infectious organism J18.1 [place] [id number] [place] [address] 52116- 6094 Jan, Migraine without aura and with status migrainosus, not intractable G43.001 [facility] [address] [address]05 04 Jan, 2017 Migraine without aura and without status migrainosus, not intractable G43.009 [facility] [id number] [place] [address] 48591- 2454 19 Dec, 2016 Hematoma T14.8 [facility] [id number] [place] [address] 81432- 8458 Dec, [facility] [id number] [place] [address] 78431 -3748 Nov, Fatigue, unspecified type R53.83 [place] [id number] [place] [address] 72270- 2017 Nov, Scabies B86 and Coronary artery disease involving [place] coronary artery of [place] 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 I25.118 [place] [id number] [place] [address] 74498- 0322 Nov, [facility] [id number] [place] [address] 34008- 2671 Nov, [place] [id number] [place] [address] 33737- 6196 Oct, [place] [id number] [place] [address] 66645- 9314 Oct, Generalized anxiety disorder F41.1 and Major depressive disorder, recurrent episode, moderate F33.1 [facility] [address] [place] [address] 27793- 5746 Oct, Cramp of both lower extremities R25.2 [place] [id number] [place] [address] 77209- 0704 Oct, Leg cramps R25.2 [place] [id number] [place] [address] 31529- 8422 Oct, Chronic pain syndrome G89.4 [place] [id number] [address]- 9990 17 Oct, 2016 [facility] [address] [place] [address] 03216- 7289 14 Oct, 2016 [facility] [id number] [place] [address] 66660- 0542 11 Oct, 2016 Routine gynecological examination Z01.419 and Screening for breast cancer Z12.31 [place] [id number] [place] [address] 82806- 5557 28 Sep, 2016 Diarrhea R19.7 [place] [id number] [place] [address] 69689- 7133 Sep, Back pain M54.9 [place] [id number] [place] [address] 98582- 0887 Sep, [place] [id number] [place] [address] 79546- 7532 Sep, [facility] [id number] [place] [address] 06278 -1286 August, Xeroderma Q80.9 [place] [id number] [place] [address] 39759- 9337 August, Dementia without behavioral disturbance, unspecified dementia type F03.90 [place] [id number] [place] [address] 74096- 0980 August, Chronic pain syndrome G89.4 [place] [id number] [place] [address] 82882- 2695 August, [facility] [id number] [place] [address] 99050- 2202 August, Hyperlipidemia E78.5 ; Other fatigue R53.83 and Other specified hypotension I95.89 [facility] [address] [address]42 August, Dysuria R30.0 ; Other fatigue R53.83 and Other specified hypotension I95.89 [facility] [id number] [place] [address] 76506- 1051 August, [facility] [address] 62255- 0055 Jul, Pain in left knee M25.562 and Gastroenteritis K52.9 [facility] [address] 12829- 3330 Jul, [facility] [address] 47798- 6597 Jul, Diarrhea R19.7 [facility] [address] 94744 -7651 Jul, Spider bite, accidental or unintentional, initial encounter T63.301A [place] [address] 49375- 8137 Jul, Primary osteoarthritis of right knee M17.11 and Arthritis M19.90 [facility] [address] 67945- 3044 Jul, Generalized anxiety disorder F41.1 and Major depressive disorder, recurrent episode, moderate F33.1 [facility] [id number] [place] [address] 96859- 7922 Jul, Type 2 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 and Temporal headache R51 [facility] [id number] [place] [address] 67683- 8643 Jul, Back pain M54.9 [facility] [id number] [place] [address] 96738- 3366 Jul, [facility] [address] 11264- 7581 Jul, [facility] [id number] [place] [address] 48208- 7809 Jun, Nausea R11.0 [facility] [address] [place] [address] Jun, Acute suppurative otitis media of both ears without spontaneous rupture of tympanic membranes, recurrence not specified H66.003 and COPD exacerbation J44.1 [facility] [address] 87349- 8338 Jun, Generalized anxiety disorder F41.1 [place] [address] 29157- 2103 16 Jun, 2016 [facility] [address] 45109 -7771 Jun, [facility] [address] 23988 -9034 Jun, Shortness of breath R06.02 and COPD exacerbation J44.1 [place] [address] 35446- 0972 Jun, Eczema, unspecified type L30.9 [place] [address] 68883- 9870 Jun, [place] [address] 62326- 9293 May, [place] [id number] [place] [address] 16336- 1241 May, Muscle cramping R25.2 [place] [id number] [place] [address] 87375- 0341 May, [place] [address] 42261- 0608 Apr, Diarrhea R19.7 [place] [address] 67329- 7057 Apr, [place] [id number] [place] [address] 16158- 1117 Apr, Chronic pain syndrome G89.4 [place] [id number] [place] [address] 98531- 7488 16 Apr, 2016 Cramp of both lower extremities R25.2 and Vascular dementia without behavioral disturbance F01.50 [place] [address] 38435- 8294 Apr, Type 2 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 and Cigarette nicotine dependence without complication F17.210 [place] [address] 62308- 3215 Mar, Generalized anxiety disorder F41.1 [place] [address] 66777- 0611 Feb, Generalized anxiety disorder F41.1 and Major depressive disorder, recurrent episode, moderate F33.1 [place] [address] [address]13- 7215 Feb, [facility] [address] [address] -[address]108 Feb, Dysuria R30.0 and Acute cystitis with hematuria N30.01 [place] [address] 06398- 3702 Jan, [place] [address] 73143- 7137 Jan, [place] [address] 77635- 9829 Jan, [place] [address] 67116- 2993 Jan, [facility] [address] [address]303 Jan, Wasp sting, accidental or unintentional, initial encounter T63.461A [place] [address] 61776- 0014 06 Jan, 2016 Encounter for immunization Z23 [place] [address] 82267- 5725 Jan, [facility] [address] [address] 1063 Jan, [facility] [address] [place] [id number] [place] [address] 49814- 5739 28 Dec, 2015 Generalized anxiety disorder F41.1 and Major depressive disorder, recurrent episode, moderate F33.1 [facility] [address] [place] [address] [id number] [place] [address] 40401- 4317 21 Dec, 2015 Routine gynecological examination Z01.419 ; Postmenopausal Z78.0 ; Screening breast examination Z12.39 ; Osteopenia M85.80 and Breast cancer screening Z12.39 [facility] [address] [place] [id number] [place] [address] 19999- 1604 20 Dec, 2015 [facility] [address] [place] [address] [id number] [place] [address] 13320- 7611 19 Dec, 2015 [facility] [address] [id number] [place] [address] 05290- 4754 16 Dec, 2015 [facility] [id number] [place] [address] 87266- 8274 16 Dec, 2015 [facility] [address] [address] [id number] [place] [address] 01623- 9396 14 Dec, 2015 [facility] [id number] [place] [address] 44484- 9205 Dec, [facility] [id number] [place] [address] 74340- 1776 Nov, [facility] [id number] [place] [address] 22912 -8218 Nov, Cough R05 ; Other viral agents as the cause of diseases classified elsewhere B97.89 and Acute upper respiratory infection, unspecified J06.9 [facility] [address] [address]- 9004 Nov, [facility] [address] [address] [id number] [place] [address] 20718- 1410 Nov, [facility] [address] [address]- 2958 Nov, [facility] [address] [address]- 4484 Nov, [facility] [address] [address]- 8354 Nov, [facility] [address] [address] [id number] [place] [address] 86436- 3236 Oct, [facility] [id number] [place] [address] 07419- 1431 Oct, [facility] [address] [place] [address] [id number] [address]- 5441 Oct, [facility] [id number] [place] [address] 86073- 8850 Oct, Chronic pain syndrome G89.4 [facility] [address] [address]- 4206 Sep, Generalized anxiety disorder F41.1 and Major depressive disorder, recurrent episode, moderate F33.1 [facility] [address] [address]- 0308 Sep, [facility] [address] [address]- 1840 Sep, [facility] [address] [address]- 9510 14 Sep, 2015 Generalized anxiety disorder F41.1 [facility] [address] [address]- 2955 13 Sep, 2015 Cramp of both lower extremities R25.2 and Cervicalgia M54.2 [facility] [address] [address]- 6555 06 Sep, 2015 Generalized anxiety disorder F41.1 [facility] [address] [place] [id number] [address]- 4140 Sep, [facility] [address] [place] [address] [id number] [place] [address] 47092 -1311 August, Rash R21 ; Itching L29.9 and Allergic response, subsequent encounter T78.40XD [facility] [address] [place] [id number] [place] [address] 71646- 2262 August, Primary insomnia F51.01 [facility] [address] [place] [id number] [place] [address] 60112 -1583 August, Rash R21 ; Itching L29.9 and Allergic response, initial encounter T78.40XA [place] [address] [address] [id number] [place] [address] 28785- 9992 August, [place] [address] [place] [address] [id number] [place] [address] 52763- 9248 August, Cramp of both lower extremities R25.2 [place] [address] [address] [id number] [place] [address] 71666- 5583 August, Back pain M54.9 [place] [address] [address] [id number] [place] [address] 40435- 6404 August, [place] [address] [address] [id number] [place] [address] 19311- 0250 August, [facility] [address] [place] [id number] [place] [address] 93719 -8762 August, Cramp of both lower extremities R25.2 [place] [address] [id number] [place] [address] 64676- 0663 August, [place] [address] [address] [id number] [place] [address] 73923- 7365 August, Syncope R55 ; Paroxysmal atrial fibrillation I48.0 ; Dementia without behavioral disturbance, unspecified dementia type F03.90 and Chronic pain syndrome G89.4 [place] [address] [address] [id number] [place] [address] 39681- 1102 August, Type 2 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 and Syncope R55 [facility] [address] [place] [id number] [place] [address] 44094- 2871 Jul, [facility] [address] [place] [id number] [place] [address] 94219- 7505 Jul, [facility] [address] [place] [id number] [place] [address] 28314- 4405 Jul, [facility] [address] [place] [id number] [place] [address] 93889- 1471 Jul, [facility] [address] [place] [id number] [place] [address] 39825- 6094 Jul, [facility] [address] [place] [id number] [place] [address] 89107- 6283 Jul, UTI (urinary tract infection) N39.0 [facility] [address] [place] [id number] [place] [address] 06265- 4308 Jul, [facility] [address] [place] [id number] [place] [address] 76716- 7721 Jul, Major depressive disorder, recurrent episode, moderate F33.1 and Generalized anxiety disorder F41.1 [facility] [address] [place] [id number] [place] [address] 27024- 2016 Jul, Generalized anxiety disorder F41.1 [facility] [id number] [place] [address] 72877- 1014 Jul, Diarrhea R19.7 [facility] [id number] [place] [address] 57654- 6986 Jul, [facility] [id number] [place] [address] 76676- 6482 Jun, [facility] [id number] [place] [address] 48035- 6420 Jun, Eczema L30.9 [facility] [address] [address]- 2795 Jun, [facility] [address] [address]- 2316 Jun, COPD (chronic obstructive pulmonary disease) J44.9 [facility] [address] [address]- 0416 Jun, [facility] [id number] [place] [address] 94840- 9939 Jun, Major depressive disorder, recurrent episode, moderate F33.1 and Generalized anxiety disorder F41.1 [facility] [address] [address]- 1436 May, [facility] [address] [address]- 7098 May, UTI (urinary tract infection) N39.0 [facility] [address] [address]- 4249 May, [facility] [address] [address]- 5043 May, [facility] [address] [address]- 7309 May, [facility] [address] [address]- 2456 May, [facility] [address] [address]- 9877 Apr, Major depressive disorder, recurrent episode, moderate F33.1 and Generalized anxiety disorder F41.1 [facility] [address] [address]- 3387 Apr, COPD (chronic obstructive pulmonary disease) J44.9 [facility] [address] [address]- 7156 Apr, [facility] [address] [place] [id number] [address]- 2650 Apr, Atrial flutter I48.92 [facility] [address] [place] [id number] [place] [address] 03594- 7142 Apr, [facility] [address] [place] [id number] [place] [address] 22861- 8442 Apr, [facility] [address] [place] [id number] [place] [address] 76900- 7041 Mar, [facility] [address] [place] [id number] [place] [address] 35716- 9945 Mar, [facility] [address] [place] [address] [id number] [place] [address] 16750- 7814 Mar, [facility] [address] [place] [id number] [place] [address] 22680- 5590 Mar, Hyperlipidemia E78.5 ; Type 2 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 ; Major depressive disorder, recurrent episode, moderate F33.1 and Chronic pain syndrome G89.4 [facility] [address] [place] [id number] [place] [address] 29206- 3697 Mar, [facility] [address] [place] [id number] [place] [address] 83239- 2242 Mar, [facility] [address] [id number] [place] [address] 26914- 2115 Mar, [facility] [address] [place] [id number] [place] [address] 12103- 4895 Mar, [facility] [id number] [place] [address] 73834- 6559 Feb, COPD (chronic obstructive pulmonary disease) J44.9 and Back pain M54.9 [facility] [address] [address]- 8853 Feb, [facility] [address] [place] [id number] [place] [address] 79186- 4375 Feb, [facility] [address] [address]- 7949 Feb, [facility] [address] [id number] [place] [address] 62921- 5058 Feb, [facility] [address] [address]- 7817 Feb, [facility] [id number] [place] [address] 19851- 5959 Feb, [facility] [id number] [place] [address] 26659- 7990 Feb, [facility] [id number] [place] [address] 62484- 0779 Feb, [facility] [id number] [place] [address] 28178- 8350 Feb, Diabetes E11.9 ; Back pain M54.9 and COPD (chronic obstructive pulmonary disease) J44.9 [facility] [id number] [place] [address] 04110- 3716 Jan, [facility] [id number] [place] [address] 07027- 4859 Jan, Major depression, recurrent F33.9 and Generalized anxiety disorder F41.1 [facility] [id number] [place] [address] 13162- 5129 Jan, Chronic pain G89.29 [facility] [address] [address]- 7968 Jan, [facility] [id number] [place] [address] 77038- 5735 Jan, [facility] [id number] [place] [address] 73513- 5385 Jan, [facility] [address] [address]- 2079 Jan, [facility] [id number] [place] [address] 39691- 7983 Jan, Nicotine dependence F17.200 [facility] [address] 41142- 5315 Jan, Nicotine dependence F17.200 and Back pain M54.9 [facility] [id number] [place] [address] 13187- 0073 Jan, [facility] [id number] [place] [address] 77243- 6593 28 Dec, 2014 [facility] [id number] [place] [address] 61023- 7172 25 Dec, 2014 Anxiety, generalized 300.02 and Major depression, recurrent 296.30 [facility] [id number] [place] [address] 64870- 2469 24 Dec, 2014 [facility] [id number] [place] [address] 20220- 3993 21 Dec, 2014 [facility] [id number] [place] [address] 11349- 8448 17 Dec, 2014 [facility] [id number] [place] [address] 88571- 4163 15 Dec, 2014 [facility] [id number] [place] [address] 32940- 6431 14 Dec, 2014 [facility] [id number] [place] [address] 37586- 8771 11 Dec, 2014 [facility] [id number] [place] [address] 54820- 1774 10 Dec, 2014 [facility] [id number] [place] [address] 58291- 4613 08 Dec, 2014 Skin tear 879.8 [facility] [id number] [place] [address] 85520- 3500 08 Dec, 2014 Routine gynecological examination V72.31 ; Breast cancer screening V76.10 and Family history of breast cancer in first degree relative V16.3 [facility] [address] [address]- 1896 Dec, [facility] [id number] [place] [address] 01253- 3801 Dec, [facility] [address] [address]- 8488 Nov, [facility] [id number] [place] [address] 18833- 8311 Nov, [facility] [id number] [place] [address] 43199- 3158 Nov, Poor balance 781.99 and Vascular dementia, uncomplicated 290.40 [facility] [id number] [place] [address] 85732- 9661 Nov, [facility] [id number] [place] [address] 85149- 3955 Nov, Major depression, recurrent 296.30 and Anxiety, generalized 300.02 [facility] [id number] [place] [address] 71756- 3324 Nov, [facility] [id number] [place] [address] 46076- 9183 Nov, [facility] [address] [address]- 6494 Nov, [facility] [id number] [place] [address] 54597- 2133 Nov, [facility] [address] [address]- 9303 Nov, Vascular dementia, uncomplicated 290.40 and Lumbago 724.2 [facility] [address] [address]- 3543 Nov, [facility] [id number] [place] [address] 54271- 3919 Nov, [facility] [address] [address]- 3455 Nov, [facility] [address] [address]- 5247 Oct, [facility] [address] [address]- 6157 Oct, [facility] [id number] [place] [address] 64438- 3561 Oct, [facility] [address] [address]- 9081 Oct, COPD (chronic obstructive pulmonary disease) 496 and Hyperlipidemia 272.4 [facility] [address] [address]- 9063 Oct, Major depression, recurrent 296.30 and Anxiety, generalized 300.02 [facility] [id number] [address]- 4128 Oct, [facility] [address] [address]- 2040 Oct, [facility] [address] [address]- 6791 Oct, [facility] [address] [address]- 6774 Sep, Lumbago 724.2 and Anxiety state, unspecified 300.00 [facility] [address] [address]- 4244 Sep, [facility] [address] [address]- 6355 Sep, [facility] [address] [address]- 6806 August, [facility] [id number] [address]- 2041 August, Major depression, recurrent 296.30 ; Anxiety, generalized 300.02 and No condition on [place] II V71.09 [facility] [id number] [address]- 4351 August, [facility] [address] [facility] [id number] [place] 6166 August, [facility] [address] [address]- 2136 Jul, [facility] [address] [facility] [id number] [place] [address]- 7403 Jul, [facility] [address] [place] [address]- 3434 Jul, [facility] [id number] [address]- 7862 Jun, [facility] [address] [place] [address]- 3701 Jun, [facility] [id number] [address]- 3262 Jun, [facility] [address] [place] [address]- 6393 Jun, [facility] [id number] [address]- 8865 Jun, [facility] [address] [address]- 9432 Jun, [facility] [id number] [address]- 2032 23 Jun, 2014 [facility] [id number] 1154 17 Jun, 2014 [facility] [address] [facility] [id number] [place] 6819 Jun, [facility] [id number] 3935 Jun, [facility] [place] [facility] [address] [id number] [place] [address]- 1175 10 Jun, 2014 [facility] [place] [facility] [address] [id number] [place] [address]- 2901 10 Jun, 2014 [facility] [place] [facility] [address] [id number] [place] [address]- 5309 07 Jun, 2014 [facility] [place] [facility] [address] [id number] [place] [address]- 6513 07 Jun, 2014 [facility] [place] [facility] [address] [id number] [place] [address]- 2495 Jun, [facility] [place] [facility] [address] [id number] [place] [address]- 4729 Jun, 2014 [facility] [place] [facility] [address] [id number] [place] [address] May, [facility] [place] [facility] [address] [id number] [place] [address] May, 2014 [facility] [place] [facility] [address] [id number] [place] [address] May, [facility] [place] [facility] [address] [facility] [id number] [place] [address] May, 2014 [facility] [place] [facility] [address] [facility] [id number] [place] [address] May, 2014 [facility] [place] [facility] [address] [id number] [place] [address] May, 2014 [facility] [place] [facility] [address] [id number] [place] [address] May, 2014 [facility] [place] [facility] [address] [id number] [place] [address] 12 May, 2014 [facility] [place] [facility] [address] [facility] [id number] [place] [address] May, 2014 [facility] [place] [facility] [address] [facility] [id number] [place] [address] May, 2014 [facility] [place] [facility] [address] [id number] [place] [address] May, 2014 [facility] [place] [facility] [address] [id number] [place] [address] May, 2014 [facility] [place] [facility] [address] [id number] [place] [address] May, 2014 [facility] [place] [facility] [address] [id number] [place] [address] May, [facility] [place] [facility] [address] [id number] [place] [address] Apr, [facility] [place] [facility] [address] [id number] [place] [address] Apr, [facility] [place] [facility] [address] [id number] [place] [address] Apr, [facility] [place] [facility] [address] [id number] [place] [address] Apr, [facility] [place] [facility] [address] [id number] [place] [address] Apr, [facility] [place] [facility] [address] [id number] [place] [address] Apr, [facility] [place] [facility] [address] [id number] [place] [address] Apr, [facility] [place] [facility] [address] [id number] [place] [address] Apr, [facility] [place] [facility] [address] [id number] [place] [address] Apr, [facility] [place] [facility] [address] [id number] [place] [address] Apr, [facility] [place] [facility] [address] [id number] [place] [address] Apr, [facility] [place] [facility] [address] [id number] [place] [address] Apr, [facility] [place] [facility] [address] [id number] [place] [address] Mar, [facility] [place] [facility] [address] [id number] [place] [address] 31 Mar, 2014 [facility] [place] [facility] [address] [id number] [place] [address] 30 Mar, 2014 [facility] [place] [facility] [address] [id number] [place] [address] 30 Mar, 2014 [facility] [place] [facility] [address] [id number] [place] [address] Mar, [facility] [place] [facility] [address] [id number] [place] [address] Mar, [facility] [place] [facility] [address] [id number] [place] [address] Mar, [facility] [place] [facility] [address] [id number] [place] [address] 19 Mar, 2014 [facility] [place] [facility] [address] [id number] [place] [address] 4258 15 Mar, 2014 [facility] [place] [facility] [address] [id number] [place] [address] 4676 15 Mar, 2014 [facility] [place] [facility] [address] [id number] [place] [address] 6436 15 Mar, 2014 [facility] [place] [facility] [address] [id number] [place] [address] 7498 15 Mar, 2014 [facility] [place] [facility] [address] [id number] [place] [address]- 5532 15 Mar, 2014 [facility] [place] [facility] [address] [id number] [place] [address] 6852 15 Mar, 2014 [facility] [place] [facility] [address] [id number] [place] [address] 3497 Mar, [facility] [place] [facility] [address] [id number] [place] [address] 1167 Mar, [facility] [place] [facility] [address] [id number] [place] [address]- 9304 Mar, [facility] [place] [facility] [address] [id number] [place] [address] 4195 Mar, [facility] [place] [facility] [address] [id number] [place] [address]- 5825 Mar, [facility] [place] [facility] [address] [id number] [place] [address]- 5704 Mar, [facility] [place] [facility] [address] [id number] [place] [address]- 1255 Feb, [facility] [place] [facility] [address] [id number] [place] [address] 1935 Feb, [facility] [place] [facility] [address] [id number] [place] [address]- 0860 Feb, [facility] [place] [facility] [address] [id number] [place] [address]- 8362 Feb, [facility] [place] [facility] [address] [id number] [place] [address]- 2893 Feb, [facility] [place] [facility] [address] [id number] [place] [address]- 0302 Feb, [facility] [place] [facility] [address] [id number] [place] [address]- 5401 Feb, [facility] [place] [facility] [address] [id number] [place] [address]- 8985 Feb, [facility] [place] [facility] [address] [id number] [place] [address]- 1038 Feb, [facility] [place] [facility] [address] [id number] [place] [address]- 9872 Feb, [facility] [place] [facility] [address] [id number] [place] [address]- 7149 Feb, [facility] [place] [facility] [address] [id number] [place] [address] Feb, [facility] [place] [facility] [address] [id number] [place] [address] Feb, [facility] [place] [facility] [address] [id number] [place] [address]- 4265 Feb, [facility] [place] [facility] [address] [id number] [place] [address]- 0156 Feb, [facility] [place] [facility] [address] [id number] [place] [address]- 8644 Feb, [facility] [place] [facility] [address] [id number] [place] [address]- 9971 Feb, [facility] [place] [facility] [address] [id number] [place] [address]- 6338 Jan, [facility] [place] [facility] [address] [id number] [place] [address]- 3818 Jan, [facility] [place] [facility] [address] [id number] [place] [address]- 3309 Jan, [facility] [place] [facility] [address] [id number] [place] [address]- 1396 Jan, [facility] [place] [facility] [address] [id number] [place] [address]- 3389 Jan, [facility] [place] [facility] [address] [id number] [place] [address]- 5791 Jan, [facility] [place] [facility] [address] [id number] [place] [address]- 5495 16 Jan, 2014 [facility] [place] [facility] [address] [id number] [place] [address] 16 Jan, 2014 [facility] [place] [facility] [address] [id number] [place] [address]- 8073 Jan, [facility] [place] [facility] [address] [id number] [place] [address]- 6594 Jan, [facility] [place] [facility] [address] [id number] [place] [address]- 9201 Jan, [facility] [place] [facility] [address] [id number] [place] [address]- 7174 Dec, [facility] [place] [facility] [address] [id number] [place] [address]- 2928 Dec, [facility] [place] [facility] [address] [id number] [place] [address]- 5188 Nov, [facility] [place] [facility] [address] [id number] [place] [address]- 8652 Nov, [facility] [place] [facility] [address] [id number] [place] [address]- 0926 Nov, [facility] [place] [facility] [address] [id number] [place] [address]- 3125 Nov, [facility] [place] [facility] [address] [id number] [place] [address]- 0279 Nov, [facility] [place] [facility] [address] [id number] [place] [address]- 2488 Nov, [facility] [place] [facility] [address] [id number] [place] [address]- 7401 Nov, [facility] [place] [facility] [address] [id number] [place] [address]- 7484 Oct, [facility] [place] [facility] [address] [id number] [place] [address]- 5124 Oct, [facility] [place] [facility] [address] [id number] [place] [address]- 5719 Oct, [facility] [place] [facility] [address] [id number] [place] [address] Oct, [facility] [place] [facility] [address] [id number] [place] [address]- 8940 30 Sep, 2013 [facility] [place] [facility] [address] [id number] [place] [address]- 5052 Sep, [facility] [place] [facility] [address] [id number] [place] [address]- 0795 Sep, [facility] [place] [facility] [address] [id number] [place] [address]- 2425 Sep, [facility] [place] [facility] [address] [id number] [place] [address]- 5117 Sep, [facility] [place] [facility] [address] [id number] [place] [address]- 0448 Sep, [facility] [place] [facility] [address] [id number] [place] [address]- 4704 Sep, [facility] [place] [facility] [address] [id number] [place] [address]- 6076 Sep, [facility] [place] [facility] [address] [id number] [place] [address]- 2614 Sep, [facility] [place] [facility] [address] [id number] [place] [address]- 2311 Sep, [facility] [place] [facility] [address] [id number] [place] [address]- 7113 Sep, [facility] [place] [facility] [address] [id number] [place] [address]- 9996 Sep, [facility] [place] [facility] [address] [id number] [place] [address]- 4401 Sep, [facility] [place] [facility] [address] [id number] [place] [address]- 1486 Sep, [facility] [place] [facility] [address] [id number] [place] [address]- 7823 August, [facility] [place] [facility] [address] [id number] [place] [address]- 6961 August, [facility] [place] [facility] [address] [id number] [place] [address]- 3008 August, [facility] [address] [id number] [place] [address]- 7342 August, [facility] [address] [id number] [place] [address]- 8799 August, [facility] [address] [id number] [place] [address]- 2729 August, [facility] [address] [id number] [place] [address]- 0024 August, [facility] [address] [id number] [place] [address]- 0482 August, [facility] [address] [id number] [place] [address]- 0762 August, [facility] [address] [id number] [place] [address]- 6143 August, [facility] [address] [id number] [place] [address]- 8626 August, [facility] [address] [id number] [place] [address]- 4564 August, [facility] [address] [id number] [place] [address]- 0334 August, [facility] [address] [id number] [place] [address]- 6376 August, [facility] [place] [facility] [address] [id number] [place] [address]- 6713 August, [facility] [place] [facility] [address] [id number] [place] [address]- 4066 August, [facility] [place] [facility] [address] [id number] [place] [address]- 1403 August, [facility] [place] [facility] [address] [id number] [place] [address]- 0163 August, [facility] [place] [facility] [address] [id number] [place] [address]85 August, [facility] [place] [facility] [address] [id number] [place] [address]- 9249 Jul, [facility] [place] [facility] [address] [id number] [place] [address]- 3423 Jul, [facility] [place] [facility] [address] [id number] [place] [address]- 8531 Jul, [facility] [place] [facility] [address] [id number] [place] [address]- 2699 Jul, [facility] [place] [facility] [address] [id number] [place] [address]- 3673 Jun, [facility] [place] [facility] [address] [id number] [place] [address]- 4032 Jun, [facility] [place] [facility] [address] [id number] [place] [address]- 1030 Jun, [facility] [place] [facility] [address] [id number] [place] [address]- 6967 Jun, [facility] [place] [facility] [address] [id number] [place] [address]- 7484 Jun, [facility] [place] [facility] [address] [id number] [place] [address]- 0326 Jun, [facility] [place] [facility] [address] [id number] [place] [address]- 4454 Jun, [facility] [place] [facility] [address] [id number] [place] [address]- 6527 Jun, [facility] [place] [facility] [address] [id number] [place] [address]- 5755 Jun, [facility] [place] [facility] [address] [id number] [place] [address]- 7292 Jun, [facility] [place] [facility] [address] [id number] [place] [address]- 2004 May, [facility] [place] [facility] [address] [id number] [place] [address]- 1296 May, [facility] [place] [facility] [address] [id number] [place] [address]- 7726 May, [facility] [place] [facility] [address] [id number] [place] [address]- 8746 May, [facility] [place] [facility] [address] [id number] [place] [address]- 254 May, [facility] [place] [facility] [address] [id number] [place] [address]- 4576 May, [facility] [place] [facility] [address] [facility] [id number] [place] [address]- 8551 May, [facility] [place] [facility] [address] [facility] [id number] [place] [address]- 9718 May, [facility] [place] [facility] [address] [id number] [place] [address]- 8141 May, [facility] [place] [facility] [address] [facility] [id number] [place] [address]- 9126 May, [facility] [place] [facility] [address] [facility] [id number] [place] [address]- 8037 18 May, 2013 [facility] [place] [facility] [address] [facility] [id number] [place] [address]- 7725 17 May, 2013 [facility] [place] [facility] [address] [facility] [id number] [place] [address]- 2546 May, [facility] [place] [facility] [address] [id number] [place] [address]- 9642 May, [facility] [place] [facility] [address] [facility] [id number] [place] [address]- 1286 10 May, 2013 [facility] [place] [facility] [address] [facility] [id number] [place] [address]- 2587 07 May, 2013 [facility] [address] [id number] [place] [address]- 2694 07 May, 2013 [facility] [address] [id number] [place] [address]- 0123 17 Apr, 2013 [facility] [address] [id number] [place] [address]- 8938 Apr, [facility] [address] [id number] [place] [address]- 0367 Apr, [facility] [address] [id number] [place] [address]- 8535 Apr, [facility] [address] [id number] [place] [address]- 8235 Apr, [facility] [address] [id number] [place] [address]- 0254 Apr, [facility] [address] [id number] [place] [address]- 9402 Apr, [facility] [address] [id number] [place] [address]- 3719 Mar, [facility] [address] [id number] [place] [address]- 0747 Mar, [facility] [address] [id number] [place] [address]- 8006 Mar, [facility] [address] [id number] [place] [address]- 0112 Mar, [facility] [address] [id number] [place] [address]- 7877 Mar, [facility] [address] [id number] [place] [address]- 6756 Mar, [facility] [address] [id number] [place] [address]- 8344 Mar, [facility] [place] [facility] [address] [id number] [place] [address]- 0817 Mar, [facility] [place] [facility] [address] [id number] [place] [address]- 7795 Mar, [facility] [place] [facility] [address] [id number] [place] [address]- 8630 Mar, [facility] [place] [facility] [address] [id number] [place] [address]- 0179 Mar, [facility] [address] [id number] [place] [address]- 4734 Feb, [facility] [place] [facility] [address] [id number] [place] [address]- 6591 Feb, [facility] [address] [id number] [place] [address]- 7461 Feb, [facility] [address] [id number] [place] [address]- 8721 20 Feb, 2013 [facility] [place] [facility] [address] [id number] [place] [address]- 3004 Feb, [facility] [place] [facility] [address] [id number] [place] [address]- 6221 19 Feb, 2013 [facility] [place] [facility] [address] [id number] [place] [address]- 8390 15 Feb, 2013 [facility] [place] [facility] [address] [id number] [place] [address]- 3453 14 Feb, 2013 [facility] [place] [facility] [address] [id number] [place] [address]- 6730 14 Feb, 2013 [facility] [place] [facility] [address] [id number] [place] [address]- 2661 13 Feb, 2013 [facility] [place] [facility] [address] [id number] [place] [address]- 7664 13 Feb, 2013 [facility] [place] [facility] [address] [id number] [place] [address]- 3010 Feb, [facility] [place] [facility] [address] [id number] [place] [address]- 2410 Feb, [facility] [place] [facility] [address] [id number] [place] [address]- 8163 Feb, [facility] [place] [facility] [address] [id number] [place] [address]- 3075 Feb, [facility] [place] [facility] [address] [id number] [place] [address]- 5310 Feb, [facility] [place] [facility] [address] [id number] [place] [address]- 8376 Jan, [facility] [place] [facility] [address] [id number] [place] [address]- 2960 Jan, [facility] [place] [facility] [address] [id number] [place] [address]- 4942 Jan, [facility] [place] [facility] [address] [id number] [place] [address]- 0656 Jan, [facility] [place] [facility] [address] [id number] [place] [address]- 8575 Jan, [facility] [place] [facility] [address] [id number] [place] [address]- 0110 Jan, [facility] [place] [facility] [address] [id number] [place] [address]- 7653 Jan, [facility] [place] [facility] [address] [id number] [place] [address]- 1108 Jan, [facility] [place] [facility] [address] [id number] [place] [address]- 4803 10 Jan, 2013 [facility] [place] [facility] [address] [id number] [place] [address]- 7292 27 Dec, 2012 [facility] [place] [facility] [address] [id number] [place] [address]- 3289 20 Dec, 2012 [facility] [place] [facility] [address] [id number] [place] [address]- 9094 19 Dec, 2012 [facility] [place] [facility] [address] [id number] [place] [address]- 1080 10 Dec, 2012 [facility] [place] [facility] [address] [id number] [place] [address]- 4006 04 Dec, 2012 [facility] [place] [facility] [address] [id number] [place] [address]- 2692 03 Dec, 2012 [facility] [place] [facility] [address] [id number] [place] [address]- 2225 Nov, [facility] [place] [facility] [address] [id number] [place] [address]- 1713 Nov, [facility] [place] [facility] [address] [id number] [place] [address]- 2400 Nov, [facility] [place] [facility] [address] [id number] [place] [address]- 5915 Nov, [facility] [place] [facility] [address] [id number] [place] [address]- 3355 Nov, [facility] [place] [facility] [address] [id number] [place] [address]- 6691 Nov, [facility] [place] [facility] [address] [id number] [place] [address]- 0476 Nov, [facility] [place] [facility] [address] [id number] [place] [address]- 5399 Nov, [facility] [place] [facility] [address] [id number] [place] [address]- 2547 14 Nov, 2012 [facility] [place] [facility] [address] [id number] [place] [address]- 7793 Nov, [facility] [place] [facility] [address] [id number] [place] [address]- 2546 Oct, [facility] [place] [facility] [address] [id number] [place] [address]- 4864 Oct, [facility] [place] [facility] [address] [id number] [place] [address]- 2953 Oct, [facility] [place] [facility] [address] [id number] [place] [address]- 9189 Oct, [facility] [place] [facility] [address] [id number] [place] [address]- 4026 Oct, [facility] [place] [facility] [address] [id number] [place] [address]- 4973 Oct, [facility] [place] [facility] [address] [id number] [place] [address]- 7420 Oct, [facility] [place] [facility] [address] [id number] [place] [address]- 0501 Oct, [facility] [place] [facility] [address] [id number] [place] [address]- 0139 Sep, [facility] [place] [facility] [address] [id number] [place] [address]- 7855 Sep, [facility] [place] [facility] [address] [id number] [place] [address]- 3971 Sep, [facility] [place] [facility] [address] [id number] [place] [address]- 9296 Sep, [facility] [place] [facility] [address] [id number] [place] [address]- 5906 Sep, [facility] [place] [facility] [address] [id number] [place] [address]- 0282 Sep, [facility] [place] [facility] [address] [id number] [place] [address]- 2252 Sep, [facility] [place] [facility] [address] [id number] [place] [address] Sep, [facility] [place] [facility] [address] [id number] [place] [address] August, [facility] [place] [facility] [address] [id number] [place] [address] August, [facility] [address] [id number] [place] [address] August, [facility] [address] [id number] [place] [address] August, [facility] [address] [id number] [place] [address] August, [facility] [address] [id number] [place] [address] Jul, [facility] [address] [id number] [place] [address] Jul, [facility] [address] [id number] [place] [address] Jul, [facility] [address] [id number] [place] [address] Jul, [facility] [address] [id number] [place] [address] Jul, [facility] [address] [id number] [place] [address] 18 Jun, 2012 [facility] [address] [id number] [place] [address] 18 Jun, 2012 [facility] [address] [id number] [place] [address]- 289[address] 15 Jun, 2012 [facility] [address] [id number] [place] [address]- [address] 14 Jun, 2012 [facility] [place] [facility] [address] [id number] [place] [address]- [address] 12 Jun, 2012 [facility] [place] [facility] [address] [id number] [place] [address]- [address] 08 Jun, 2012 [facility] [address] [id number] [place] [address]- [address] 08 Jun, 2012 [facility] [address] [id number] [place] [address] Jun, [facility] [address] [id number] [place] [address] Jun, [facility] [address] [id number] [place] [address] May, [facility] [address] [id number] [place] [address] May, [facility] [address] [id number] [place] [address] May, [facility] [address] [id number] [place] [address] May, [facility] [address] [id number] [place] [address] Apr, [facility] [address] [id number] [place] [address] 1446 Apr, [facility] [address] [id number] [place] [address] 79[address] Apr, [facility] [address] [id number] [place] [address] Apr, [facility] [address] [id number] [place] [address] Apr, [facility] [address] [id number] [place] [address]- [address] Apr, [facility] [address] [id number] [place] [address]- 4[address] Apr, [facility] [address] [id number] [place] [address] Mar, [facility] [place] [address] [place] [id number] Mar, [facility] [address] [id number] [place] [address] Mar, [facility] [place] [facility] [address] [id number] [place] [address] Mar, [facility] [place] [facility] [address] [id number] [place] [address]226 Mar, [facility] [place] [facility] [address] [id number] [place] [address] Mar, [facility] [place] [facility] [address] [id number] [place] [address]- [address] Mar, [facility] [place] [facility] [address] [id number] [place] [address] Mar, [facility] [place] [facility] [address] [id number] [place] [address]- [address] Mar, [facility] [place] [facility] [address] [id number] [place] [address]- [address] Mar, [facility] [place] [facility] [address] [id number] [place] [address]- [address] Mar, [facility] [place] [facility] [address] [id number] [place] [address]- [address] Mar, [facility] [place] [facility] [address] [id number] [place] [address]- 9836 Mar, [facility] [place] [facility] [address] [id number] [place] [address]- [address] Mar, [facility] [place] [facility] [address] [id number] [place] [address] Mar, [facility] [place] [facility] [address] [id number] [place] [address]- [address] Mar, [facility] [place] [facility] [address] [id number] [place] [address] Mar, [facility] [place] [facility] [address] [id number] [place] [address]- 1883 Feb, [facility] [place] [facility] [address] [id number] [place] [address]- 39[address] Feb, [facility] [place] [facility] [address] [id number] [place] [address]- [address] Feb, [facility] [place] [facility] [address] [id number] [place] [address]- 290[address] Feb, [facility] [place] [facility] [address] [id number] [place] [address]- [address] Feb, [facility] [place] [facility] [address] [id number] [place] [address]- 0000 Feb, [facility] [place] [facility] [address] [id number] [place] [address]- 0186 Feb, [facility] [place] [facility] [address] [id number] [place] [address]- [address] Feb, [facility] [place] [facility] [address] [id number] [place] [address]- 8[address] Feb, [facility] [place] [facility] [address] [id number] [place] [address]- 7169 Feb, [facility] [place] [facility] [address] [id number] [place] [address]- 5196 Feb, [facility] [place] [facility] [address] [id number] [place] [address]- 9[address] Feb, [facility] [place] [facility] [address] [id number] [place] [address] 8951 Feb, [facility] [place] [facility] [address] [id number] [place] [address]- 1029 Feb, [facility] [place] [facility] [address] [id number] [place] [address]- 6545 Feb, [facility] [place] [facility] [address] [id number] [place] [address]- 53[address] Feb, [facility] [place] [facility] [address] [id number] [place] [address]- [address] Jan, [facility] [place] [facility] [address] [id number] [place] [address]- [address] Jan, [facility] [place] [facility] [address] [id number] [place] [address]- 8460 Jan, [facility] [place] [facility] [address] [id number] [place] [address] Jan, [facility] [place] [facility] [address] [id number] [place] [address] Jan, [facility] [place] [facility] [address] [id number] [place] [address] Jan, [facility] [place] [facility] [address] [id number] [place] [address] Jan, [facility] [place] [facility] [address] [id number] [place] [address] Jan, [facility] [place] [facility] [address] [id number] [place] [address] Jan, [facility] [place] [facility] [address] [id number] [place] [address] Jan, [facility] [place] [facility] [address] [id number] [place] [address] Jan, [facility] [place] [facility] [address] [id number] [place] [address] Jan, [facility] [place] [facility] [address] [id number] [place] [address] Jan, [facility] [place] [facility] [address] [id number] [place] [address] Jan, [facility] [place] [facility] [address] [id number] [place] [address]- 47[address] Jan, [facility] [place] [facility] [address] [id number] [place] [address] Jan, [facility] [place] [facility] [address] [id number] [place] [address] 04 Jan, 2012 [facility] [place] [facility] [address] [id number] [place] [address]- 6826 21 Dec, 2011 [facility] [place] [facility] [address] [id number] [place] [address]- 5676 20 Dec, 2011 [facility] [place] [facility] [address] [id number] [place] [address] 2546 18 Dec, 2011 [facility] [place] [facility] [address] [id number] [place] [address] 2546 18 Dec, 2011 [facility] [place] [facility] [address] [id number] [place] [address] 2546 10 Dec, 2011 [facility] [place] [facility] [address] [id number] [place] [address] 3356 10 Dec, 2011 [facility] [place] [facility] [address] [id number] [place] [address]- 1865 10 Dec, 2011 [facility] [place] [facility] [address] [id number] [place] [address]- 3975 07 Dec, 2011 [facility] [place] [facility] [address] [id number] [place] [address]- 5465 30 Nov, 2011 [facility] [place] [facility] [address] [id number] [place] [address]- 9[address] Nov, [facility] [place] [facility] [address] [id number] [place] [address]- 9339 Nov, [facility] [place] [facility] [address] [id number] [place] [address]- 2543 Nov, [facility] [place] [facility] [address] [id number] [place] [address] 2546 Nov, [facility] [place] [facility] [address] [id number] [place] [address]- 7029 Nov, [facility] [place] [facility] [address] [id number] [place] [address]- 254 30 Oct, 2011 [facility] [place] [facility] [address] [id number] [place] [address]3 30 Oct, 2011 [facility] [address] [id number] [place] [address]- 3518 Oct, [facility] [place] [facility] [address] [id number] [place] [address]- [address]26 Oct, [facility] [address] [id number] [place] [address]- 6477 Oct, [facility] [place] [facility] [address] [id number] [place] [address] 7609 Oct, [facility] [address] [id number] [place] [address]- 8406 Oct, [facility] [place] [facility] [address] [id number] [place] [address]- 1641 Sep, [facility] [place] [facility] [address] [id number] [place] [address]- 2727 Sep, [facility] [place] [facility] [address] [id number] [place] [address]- 9230 Sep, [facility] [place] [facility] [address] [id number] [place] [address]- 7594 Sep, [facility] [address] [id number] [place] [address]- 2861 Sep, [facility] [place] [facility] [address] [id number] [place] [address]- 2547 15 Sep, 2011 [facility] [place] [facility] [address] [id number] [place] [address]- 9069 14 Sep, 2011 [facility] [place] [facility] [address] [id number] [place] [address]- 9798 11 Sep, 2011 [facility] [place] [facility] [address] [id number] [place] [address]- 4696 05 Sep, 2011 [facility] [place] [facility] [address] [id number] [place] [address] 9257 Sep, [facility] [address] [id number] [place] [address] 6144 August, [facility] [place] [facility] [address] [id number] [place] [address]- 6716 August, [facility] [place] [facility] [address] [id number] [place] [address]- 2009 August, [facility] [place] [facility] [address] [id number] [place] [address]- 6586 August, [facility] [address] [id number] [place] [address]- 49[address] August, [facility] [place] [facility] [address] [id number] [place] [address]- 1051 Jul, [facility] [place] [facility] [address] [id number] [place] [address]- 8466 Jul, [facility] [address] [id number] [place] [address] 1848 Jul, [facility] [place] [facility] [address] [id number] [place] [address]- 5022 Jul, [facility] [place] [facility] [address] [id number] [place] [address]- 3[address] Jul, [facility] [place] [facility] [address] [id number] [place] [address] 8725 Jul, [facility] [place] [facility] [address] [id number] [place] [address]- 7075 Jul, [facility] [place] [facility] [address] [id number] [place] [address]- 4201 Jun, [facility] [place] [facility] [address] [id number] [place] [address] 4939 Jun, [facility] [place] [facility] [address] [id number] [place] [address]- 4006 Jun, [facility] [place] [facility] [address] [id number] [place] [address]- 5958 Jun, [facility] [place] [facility] [address] [id number] [place] [address]- 7777 Jun, [facility] [place] [facility] [address] [id number] [place] [address]- 8846 May, [facility] [place] [facility] [address] [id number] [place] [address]- 3396 May, [facility] [place] [facility] [address] [id number] [place] [address]- 3575 May, [facility] [place] [facility] [address] [id number] [place] [address]- 8377 May, [facility] [place] [facility] [address] [id number] [place] [address]- 6629 May, [facility] [place] [facility] [address] [facility] [id number] [place] [address]- 2639 May, [facility] [place] [facility] [address] [id number] [place] [address]- 7457 Apr, [facility] [place] [facility] [address] [facility] [id number] [place] [address]- 4133 Mar, [facility] [place] [facility] [address] [facility] [id number] [place] [address]- 0559 Feb, [facility] [place] [facility] [address] [id number] [place] [address] 2543 Feb, [facility] [place] [facility] [address] [id number] [place] [address]- 2544 Feb, [facility] [place] [facility] [address] [id number] [place] [address]- 7057 Feb, [facility] [place] [facility] [address] [facility] [id number] [place] [address]- 1714 Jan, [facility] [place] [facility] [address] [id number] [place] [address]- 4993 Jan, [facility] [place] [facility] [address] [id number] [place] [address]- 4552 26 Jan, 2011 [facility] [address] [id number] [place] [address] 24 Jan, 2011 [facility] [address] [id number] [place] [address]- 3873 14 Jan, 2011 [facility] [address] [id number] [place] [address]- 1945 19 Dec, 2010 [facility] [address] [id number] [place] [address]- 6722 Oct, [facility] [address] [id number] [place] [address]- 8979 August, [facility] [address] [id number] [place] [address]- 3527 29 Mar, 2010 [facility] [address] [id number] [place] [address]- 8676 27 Mar, 2010 [facility] [address] [id number] [place] [address]- 8366 16 Mar, 2010 [facility] [address] [id number] [place] [address]- 2420 15 Mar, 2010 [facility] [address] [id number] [place] [address]- 2710 15 Mar, 2010 [facility] [place] [facility] [address] [id number] [place] [address]- 8116 08 Mar, 2010 [facility] [place] [facility] [address] [id number] [place] [address]- 1685 03 Mar, 2010 [facility] [place] [facility] [address] [id number] [place] [address]- 5892 24 Feb, 2010 [facility] [place] [facility] [address] [id number] [place] [address]- 4924 24 Feb, 2010 [facility] [place] [facility] [address] [id number] [place] [address]- 8376 15 Feb, 2010 [facility] [place] [facility] [address] [id number] [place] [address]- 6651 19 Jan, 2010 [facility] [place] [facility] [address] [id number] [place] [address]- 0656 Jan, [facility] [place] [facility] [address] [id number] [place] [address]- 0556 Jan, [facility] [place] [facility] [address] [id number] [place] [address]- 8204 Nov, [facility] [place] [facility] [address] [id number] [place] [address]- 7322 Sep, [facility] [place] [facility] [address] [id number] [place] [address]- 0957 August, [facility] [place] [facility] [address] [id number] [place] [address]- 7387 30 Mar, 2009 [facility] [place] [facility] [address] [id number] [place] [address]- 5737 Mar, [facility] [place] [facility] [address] [id number] [place] [address]- 2763 17 Feb, 2009 [facility] [place] [facility] [address] [id number] [place] [address]- 5743 Feb, [facility] [place] [facility] [address] [id number] [place] [address]- 0241 10 Feb, 2009 [facility] [place] [facility] [address] [id number] [place] [address]- 0801 10 Feb, 2009 [facility] [place] [facility] [address] [id number] [place] [address]- 5959 06 Feb, 2009 [facility] [place] [facility] [address] [id number] [place] [address]- 2710 27 Jan, 2009 [facility] [place] [facility] [address] [id number] [place] [address]- 2294 Jan, [facility] [place] [facility] [address] [id number] [place] [address]- 6412 Jan, [facility] [address] [id number] [place] [address]- 1688 Jan, [facility] [id number] [place] [address]- 1392 Nov, [facility] [id number] [place] [address]- 4568 Sep, [facility] [id number] [place] [address]- 5562 August, [facility] [id number] [place] [address]- 5904 Jul, [facility] [id number] [place] [address]- 7644 May, IMMUNIZATIONS No Known Immunizations SOCIAL HISTORY [...] Knee Surgery 07/16/17 Hospitalization History [facility] [place]- left hand/wrist swelling 10/09/2017
--- OUTSIDE RECORDS SUMMARY | 2018-01-01 11:52 | XMS REPORT ---
Author Author FAHAD CLEMENT [facility] Address [address] [place] [address] Care Team Providers Care Research Instrumentation Technician Name Role Phone FAHAD CLEMENT Unavailable PROBLEMS Type Condition ICD9-CM Code EIT34-ET Code Onset Dates Condition Status SNOMED Code Problem History of common bile duct surgery Z98.89 Active 825243601 Problem Barretts esophagus K22.70 Active 992551609 Problem 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 Active 12871648 Problem Colon polyp K63.5 Active 12616217 Problem Bilateral low back pain without sciatica M54.5 Active 760408751 Problem Screening breast examination Z12.39 Active 026384204 Problem Postmenopausal Z78.0 Active 95813972 Problem Osteopenia M85.80 Active 570799102 Problem Cigarette nicotine dependence without complication F17.210 Active 69801306 Problem Type 2 diabetes mellitus with diabetic peripheral angiopathy without gangrene E11.51 Active 022287019 Problem Vascular dementia without behavioral disturbance F01.50 Active [id number] Problem Unspecified atherosclerosis of ely shosh[place] arteries of extremities, unspecified extremity I70.209 Active 520804725253711 Problem Arthritis M19.90 Active 6449771 Problem Chronic atrial fibrillation I48.2 Active 835797602 Problem Chronic obstructive pulmonary disease with acute lower respiratory infection J44.0 Active 911832318 Problem Other chronic pancreatitis K86.1 Active 324701625 Problem Stress incontinence of urine N39.3 Active 67543178 Problem Controlled type 2 diabetes mellitus without complication, without long -term current use of insulin E11.9 Active 269773044 Problem Unspecified psychosis F29 Active 02253277 Problem Xeroderma Q80.9 Active 95805955 Problem COPD (chronic obstructive pulmonary disease) J44.9 Active 96017225 Problem Dementia without behavioral disturbance, unspecified dementia type F03.90 Active 44501128 Problem Gastroparesis K31.84 Active 082922811 Problem Type 2 diabetes mellitus with diabetic neuropathy, without long-term current use of insulin E11.40 Active 71241094 Problem Osteoporosis M81.0 Active 06694489 Problem Atherosclerosis of [place] sh[place] artery of both lower extremities with intermittent claudication I70.213 Active 885804135688657 Problem Hyperlipidemia E78.5 Active 80180728 Problem Diabetic polyneuropathy associated with type 2 diabetes mellitus E11.42 Active 90825646 Problem Essential tremor G25.0 Active 92523917 Problem 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 Active 2119244142813 Problem Generalized anxiety disorder F41.1 Active 477635966 Problem Gastroesophageal reflux disease, esophagitis presence not specified K21.9 Active 872413901 Problem 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 I25.118 Active 0434828177900 Problem Postconcussion syndrome F07.81 Active 57318390 Problem Chronic pain syndrome G89.4 Active 770924555 Problem Migraine without aura and without status migrainosus, not intractable G43.009 Active 342568325 Problem Paroxysmal atrial fibrillation I48.0 Active 636736228 Problem Migraine without aura and with status migrainosus, not intractable G43.001 Active 373831343 Problem Cervicalgia M54.2 Active 4846899018593 Problem Acute exacerbation of chronic obstructive pulmonary disease (COPD) J44.1 Active 810711179 Problem Major depressive disorder, recurrent episode, moderate F33.1 Active 932075478 Problem Crohn''s disease without complication, unspecified gastrointestinal tract location K50.90 Active 22228334 Problem Chronic fatigue R53.82 Active 38911501 Problem Bipolar affective disorder, currently depressed, moderate F31.32 Active 069907008 ALLERGIES No Information ENCOUNTERS Encounter Location Date Diagnosis [id number] [address] Nov, [facility] [address] [place] [address] 16403- 7936 Nov, [place] [address] [address], [place] [address] Oct, [facility] [address], [place] [address] Oct, Bipolar affective disorder, currently depressed, moderate F31.32 ; Vascular dementia without behavioral disturbance F01.50 and Generalized anxiety disorder F41.1 [facility] [address] [place] [address] 70491- 2668 Oct, [facility] [id number] [address] 9757 Oct, [facility] [id number] [place] [address] 89241- 6437 Oct, Edema of both legs R60.0 [facility] [id number] [place] [address] 67569- 4964 Oct, [facility] [id number] [place] [address] 51857- 8074 Sep, [facility] [id number] [place] [address] 79622- 9983 Sep, [facility] [id number] [place] [address] 68788- 3585 Sep, [facility] [address], [place] [address] 25[address] Sep, Encounter for well woman exam with routine gynecological exam Z01.419 ; Screening for STDs (sexually transmitted diseases) Z11.3 ; Screening breast examination Z12.31 and Overweight (BMI 25.0-29.9) E66.3 [facility] [address] [address] 9860 Sep, [facility] [address] [address] 2872 Sep, [facility] [address] [address] 2397 Sep, [facility] [address], [place] [address] 1423 August, [facility] [address] [place] [address] 72007- 4374 August, [facility] [address] [place] [address] 90594- 1633 August, Type 2 diabetes mellitus with diabetic neuropathy, without long-term current use of insulin E11.40 and Sprain of right ankle, unspecified ligament, initial encounter S93.401A [facility] [id number] [place] [address] 02570- 0933 August, [facility] [id number] [place] [address] 90542- 9518 August, [facility] [id number] [place] [address] 11249- 2198 August, [facility] [id number] [place] [address] 43746- 2540 August, Gastroesophageal reflux disease, esophagitis presence not specified K21.9 [facility] [id number] [place] [address] 56897- 7784 August, [facility] [id number] [place] [address] 57039- 0564 August, [facility] [id number] [place] [address] 04923- 8910 August, [facility] [id number] [place] [address] 60222- 3907 August, Type 2 diabetes mellitus with diabetic neuropathy, without long-term current use of insulin E11.40 and Elevated liver enzymes R74.8 [facility] [id number] [place] [address] 56876- 1666 Jul, [facility] [id number] [place] [address] 01845- 7361 Jul, Cough R05 [facility] [id number] [place] [address] 97542- 6142 Jul, [facility] [id number] [place] [address] 09051- 6425 Jul, [facility] [id number] [place] [address] 96463- 8916 Jul, Bipolar affective disorder, currently depressed, moderate F31.32 ; Vascular dementia without behavioral disturbance F01.50 and Generalized anxiety disorder F41.1 [facility] [id number] [place] [address] 00508- 0373 Jul, [facility] [address] 45817- 0918 Jul, Type 2 diabetes mellitus with diabetic neuropathy, without long-term current use of insulin E11.40 and Elevated liver enzymes R74.8 [place] [address] 34976- 1119 Jul, [facility] [address] 59038- 3289 Jul, [place] [address] 70202- 8594 Jul, [facility] [address] 25625- 1134 Jul, Post-menopausal Z78.0 [facility] [address] 79950- 6520 Jul, Stress incontinence of urine N39.3 [place] [id number] [place] [address] 65220- 3656 Jul, [facility] [id number] [place] [address] 88104- 5944 Jul, [facility] [id number] [place] [address] 37903- 9451 Jul, Stress incontinence of urine N39.3 and Cough R05 [facility] [id number] [place] [address] 46401- 1562 Jul, [facility] [id number] [place] [address] 89704- 0696 Jul, [place] [address] [address]- 6016 Jul, [facility] [id number] [place] [address] 08142- 8813 Jul, Gastroesophageal reflux disease, esophagitis presence not specified K21.9 [facility] [address] [place] [address] 62182- 1723 Jun, Diabetic polyneuropathy associated with type 2 diabetes mellitus E11.42 [facility] [id number] [place] [address] 48357 2543 28 Jun, 2017 Diabetic polyneuropathy associated with type 2 diabetes mellitus E11.42 ; 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 I25.118 and Paroxysmal atrial fibrillation I48.0 [facility] [id number] [place] [address] 51088- 3508 Jun, [facility] [id number] [place] [address] 97696 2540 Jun, [facility] [id number] [place] [address] 78651 2544 Jun, Gastroenteritis K52.9 [facility] [id number] [place] [address] 78985 2546 Jun, Gastroenteritis K52.9 [facility] [address], [place] [address] 2548 Jun, [facility] [id number] [place] [address] 89154 2547 Jun, [facility] [address] [address] 2549 Jun, Sprain of right ankle, unspecified ligament, initial encounter S93.401A ; Type 2 diabetes mellitus with diabetic neuropathy, without long-term current use of insulin E11.40 ; Atherosclerosis of [place] artery of both lower extremities with intermittent claudication I70.213 ; 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 ; Chronic atrial fibrillation I48.2 and Crohn''s disease without complication, unspecified gastrointestinal tract location K50.90 [facility] [id number] [place] [address] 29070 -0104 17 Jun, 2017 Cough R05 and Chronic obstructive pulmonary disease with acute lower respiratory infection J44.0 [facility] [id number] [place] [address] 81264- 8144 Jun, [facility] [id number] [place] [address] 99609- 6134 Jun, Coughing R05 ; Unspecified atherosclerosis of [place] shosh[place] arteries of extremities, unspecified extremity I70.209 ; Type 2 diabetes mellitus with diabetic peripheral angiopathy without gangrene E11.51 ; Crohn''s disease without complication, unspecified gastrointestinal tract location K50.90 ; Other chronic pancreatitis K86.1 and Chronic atrial fibrillation I48.2 [facility] [id number] [place] [address] 29222 -5857 Jun, [place] [id number] [place] [address] 09661- 2671 Jun, Bipolar affective disorder, currently depressed, moderate F31.32 ; Vascular dementia without behavioral disturbance F01.50 and Generalized anxiety disorder F41.1 [place] [id number] [place] [address] 54157- 0862 May, Generalized anxiety disorder F41.1 [place] [id number] [place] [address] 45139- 8104 May, [place] [id number] [place] [address] 39559- 1366 May, [place] [id number] [place] [address] 44089- 6031 15 May, 2017 Coughing R05 [place] [id number] [place] [address] 30563- 6594 09 May, 2017 [place] [id number] [place] [address] 88042- 6865 May, Bipolar affective disorder, currently depressed, moderate F31.32 ; Vascular dementia without behavioral disturbance F01.50 and Generalized anxiety disorder F41.1 [place] [id number] [place] [address] 36952- 0777 Apr, Generalized anxiety disorder F41.1 [place] [id number] [place] [address] 08072- 8217 Apr, [place] [address] 64610- 4466 Apr, Vascular dementia without behavioral disturbance F01.50 ; Generalized anxiety disorder F41.1 and Bipolar affective disorder, currently depressed, moderate F31.32 [place] [id number] [place] [address] 07435- 4273 Apr, Generalized anxiety disorder F41.1 [facility] [id number] [place] [address] 28511 -0123 Apr, Cough R05 and Acute exacerbation of chronic obstructive pulmonary disease (COPD) J44.1 [place] [address] 36867- 2307 Apr, [facility] [id number] [place] [address] 38503 -2972 Mar, Cough R05 and Cigarette nicotine dependence without complication F17.210 [place] [id number] [place] [address] 13542- 9401 Mar, [place] [id number] [place] [address] 88440- 9866 Feb, Generalized anxiety disorder F41.1 ; Major depressive disorder, recurrent episode, moderate F33.1 ; Vascular dementia without behavioral disturbance F01.50 and Unspecified psychosis F29 [place] [id number] [place] [address] 26119- 1465 Feb, [place] [address] 68679- 5946 Feb, [place] [id number] [place] [address] 44384- 1820 Feb, Generalized anxiety disorder F41.1 [place] [id number] [place] [address] 09780- 0895 Feb, Generalized anxiety disorder F41.1 [place] [id number] [place] [address] 29415- 8051 Feb, Dizziness R42 ; Chronic fatigue R53.82 ; Postconcussion syndrome F07.81 ; Fall, initial encounter W19.XXXA and Disorientation R41.0 [place] [id number] [place] [address] 43216- 7910 Feb, Postconcussion syndrome F07.81 ; Injury of head, initial encounter S09.90XA ; Fall, initial encounter W19.XXXA ; Disorientation R41.0 and Acute cystitis with hematuria N30.01 [place] [id number] [place] [address] 09261- 4724 Jan, Gastroesophageal reflux disease, esophagitis presence not specified K21.9 ; Post-menopausal Z78.0 and Migraine without aura and without status migrainosus, not intractable G43.009 [place] [id number] [place] [address] 29041- 6983 Jan, [place] [id number] [place] [address] 58626- 9283 Jan, Generalized anxiety disorder F41.1 ; Major depressive disorder, recurrent episode, moderate F33.1 ; Vascular dementia without behavioral disturbance F01.50 and Unspecified psychosis F29 [place] [id number] [place] [address] 74829- 2625 Jan, Pneumonia of left lower lobe due to infectious organism J18.1 [place] [id number] [place] [address] 19592- 8172 Jan, Migraine without aura and with status migrainosus, not intractable G43.001 [facility] [address] [place] [address] 17921 -0681 04 Jan, 2017 Migraine without aura and without status migrainosus, not intractable G43.009 [facility] [id number] [place] [address] 31634- 1028 19 Dec, 2016 Hematoma T14.8 [facility] [id number] [place] [address] 82981- 5947 12 Dec, 2016 [facility] [id number] [place] [address] 99620 -3363 Nov, Fatigue, unspecified type R53.83 [place] [id number] [place] [address] 98258- 5621 Nov, Scabies B86 and 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 I25.118 [place] [id number] [place] [address] 57642- 3636 Nov, [place] [id number] [place] [address] 15556- 8592 Nov, [place] [id number] [place] [address] 51942- 6904 Oct, [place] [id number] [place] [address] 64654- 7136 Oct, Generalized anxiety disorder F41.1 and Major depressive disorder, recurrent episode, moderate F33.1 [place] [id number] [place] [address] 86381- 0122 Oct, Cramp of both lower extremities R25.2 [place] [id number] [place] [address] 83660- 7473 18 Oct, 2016 Leg cramps R25.2 [place] [id number] [place] [address] 65002- 0682 17 Oct, 2016 Chronic pain syndrome G89.4 [place] [address] [address]- 1447 17 Oct, 2016 [facility] [id number] [place] [address] 38325- 7542 14 Oct, 2016 [facility] [address] [place] [address] 22536- 9328 11 Oct, 2016 Routine gynecological examination Z01.419 and Screening for breast cancer Z12.31 [facility] [id number] [place] [address] 86385- 1497 28 Sep, 2016 Diarrhea R19.7 [place] [id number] [place] [address] 86230- 2416 26 Sep, 2016 Back pain M54.9 [place] [id number] [place] [address] 58388- 1210 12 Sep, 2016 [facility] [id number] [place] [address] 22478- 0663 Sep, [facility] [id number] [place] [address] 96152 -7700 August, Xeroderma Q80.9 [facility] [id number] [place] [address] 64112- 0432 August, Dementia without behavioral disturbance, unspecified dementia type F03.90 [place] [id number] [place] [address] 78278- 4953 August, Chronic pain syndrome G89.4 [facility] [id number] [place] [address] 29174- 1434 August, [facility] [id number] [place] [address] 68673- 5978 August, Hyperlipidemia E78.5 ; Other fatigue R53.83 and Other specified hypotension I95.89 [facility] [address] [place] [address] 55931 -5639 August, Dysuria R30.0 ; Other fatigue R53.83 and Other specified hypotension I95.89 [facility] [id number] [place] [address] 52835- 2864 August, [facility] [id number] [place] [address] 03560- 2130 Jul, Pain in left knee M25.562 and Gastroenteritis K52.9 [place] [address] 02728- 9792 Jul, [facility] [id number] [place] [address] 70533- 6264 Jul, Diarrhea R19.7 [facility] [address] 15639 -2842 Jul, Spider bite, accidental or unintentional, initial encounter T63.301A [place] [address] 06912- 3492 Jul, Primary osteoarthritis of right knee M17.11 and Arthritis M19.90 [place] [id number] [place] [address] 64965- 0815 Jul, Generalized anxiety disorder F41.1 and Major depressive disorder, recurrent episode, moderate F33.1 [place] [id number] [place] [address] 59806- 8302 Jul, Type 2 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 and Temporal headache R51 [place] [id number] [place] [address] 69639- 6511 Jul, Back pain M54.9 [facility] [id number] [place] [address] 48864- 0191 Jul, [place] [id number] [place] [address] 63421- 4543 Jul, [facility] [id number] [place] [address] 57894- 1204 Jun, Nausea R11.0 [facility] [id number] [place] [address] 11580 -0573 Jun, Acute suppurative otitis media of both ears without spontaneous rupture of tympanic membranes, recurrence not specified H66.003 and COPD exacerbation J44.1 [facility] [address] 14985- 9944 Jun, Generalized anxiety disorder F41.1 [place] [address] 65120- 3388 16 Jun, 2016 [facility] [address] 41022 -8797 Jun, [facility] [place] [address] 30682 -9542 Jun, Shortness of breath R06.02 and COPD exacerbation J44.1 [place] [address] 25357- 4769 Jun, Eczema, unspecified type L30.9 [place] [address] 66287- 4192 Jun, [place] [address] 31222- 7310 May, [place] [address] 90811- 1689 May, Muscle cramping R25.2 [place] [address] 80357- 3507 May, [place] [address] 42567- 8312 Apr, Diarrhea R19.7 [place] [address] 75739- 7450 Apr, [place] [address] 53220- 6058 Apr, Chronic pain syndrome G89.4 [place] [address] 90535- 9886 16 Apr, 2016 Cramp of both lower extremities R25.2 and Vascular dementia without behavioral disturbance F01.50 [place] [address] 72602- 5576 Apr, Type 2 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 and Cigarette nicotine dependence without complication F17.210 [place] [address] 67153- 3340 Mar, Generalized anxiety disorder F41.1 [place] [address] 79538- 0555 Feb, Generalized anxiety disorder F41.1 and Major depressive disorder, recurrent episode, moderate F33.1 [place] [address] 42831- 1898 Feb, [facility] [address] 73001 -7053 Feb, Dysuria R30.0 and Acute cystitis with hematuria N30.01 [place] [address] 00416- 0701 Jan, [place] [address] [address]57- 2322 Jan, [place] [address] 76038- 7928 Jan, [place] [address] 81368- 1153 Jan, [facility] [address] [address]36 -7833 Jan, Wasp sting, accidental or unintentional, initial encounter T63.461A [place] [address] 41503- 9025 06 Jan, 2016 Encounter for immunization Z23 [place] [address] [place] [address]- 0693 Jan, [facility] [address] [place] [id number] [place] [address] 38345- 1157 Jan, [facility] [id number] [place] [address] 36323- 3733 28 Dec, 2015 Generalized anxiety disorder F41.1 and Major depressive disorder, recurrent episode, moderate F33.1 [facility] [address] [place] [address] [id number] [place] [address] 16912- 2696 21 Dec, 2015 Routine gynecological examination Z01.419 ; Postmenopausal Z78.0 ; Screening breast examination Z12.39 ; Osteopenia M85.80 and Breast cancer screening Z12.39 [facility] [address] [place] [address] [id number] [place] [address] 25537- 7253 20 Dec, 2015 [facility] [address] [place] [address] [id number] [place] [address] 15019- 9665 19 Dec, 2015 [facility] [id number] [place] [address] 73653- 8132 16 Dec, 2015 [facility] [address] [id number] [place] [address] 28186- 5507 16 Dec, 2015 [facility] [address] [place] [address] [id number] [place] [address] 10367- 5750 14 Dec, 2015 [facility] [address] [place] [address] 98369- 5993 06 Dec, 2015 [facility] [id number] [place] [address] 98052- 6697 30 Nov, 2015 [facility] [address] [address] Nov, Cough R05 ; Other viral agents as the cause of diseases classified elsewhere B97.89 and Acute upper respiratory infection, unspecified J06.9 [facility] [address], [place] [address]- 5494 Nov, [facility] [id number] [address]- 3241 Nov, [facility] [address], [place] [address]- 3054 Nov, [facility] [address], [place] [address]- 9968 Nov, [facility] [address], [place] [address]- 5145 Nov, [facility] [address], [place] [address]- 5412 Oct, [facility] [address] [place] [address] 74211- 9054 Oct, [facility] [address], [place] [address]- 1319 Oct, [facility] [address] [place] [address] 08244- 6744 Oct, Chronic pain syndrome G89.4 [facility] [address], [place] [address]- 3094 Sep, Generalized anxiety disorder F41.1 and Major depressive disorder, recurrent episode, moderate F33.1 [facility] [address], [place] [address]- 2847 Sep, [facility] [address], [place] [address]- 4914 Sep, [facility] [address], [place] [address]- 3273 14 Sep, 2015 Generalized anxiety disorder F41.1 [facility] [address], [place] [address]- 6096 13 Sep, 2015 Cramp of both lower extremities R25.2 and Cervicalgia M54.2 [facility] [address], [place] [address] 1988 06 Sep, 2015 Generalized anxiety disorder F41.1 [facility] [address] [place] [id number] [place] [address] 99750- 9579 Sep, [facility] [address] [place] [address] [id number] [place] [address] 61948 -2650 August, Rash R21 ; Itching L29.9 and Allergic response, subsequent encounter T78.40XD [facility] [address] [place] [id number] [place] [address] 65254- 2403 August, Primary insomnia F51.01 [facility] [address] [id number] [place] [address] 87721 -3609 August, Rash R21 ; Itching L29.9 and Allergic response, initial encounter T78.40XA [place] [address] [address] [id number] [place] [address] 75146- 6939 August, [place] [address] [id number] [place] [address] 84249- 6386 August, Cramp of both lower extremities R25.2 [place] [address] [address] [id number] [place] [address] 68765- 2614 August, Back pain M54.9 [place] [address] [id number] [place] [address] 31642- 3100 August, [place] [address] [address] [id number] [place] [address] 10101- 9542 August, [facility] [address] [place] [id number] [place] [address] 56516 -2840 August, Cramp of both lower extremities R25.2 [place] [address] [id number] [place] [address] 43935- 9720 August, [place] [address] [place] [id number] [place] [address] 00021- 0832 August, Syncope R55 ; Paroxysmal atrial fibrillation I48.0 ; Dementia without behavioral disturbance, unspecified dementia type F03.90 and Chronic pain syndrome G89.4 [place] [address] [place] [address] [place] [address]- 8766 August, Type 2 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 and Syncope R55 [facility] [address] [place] [id number] [place] [address] 54275- 1166 Jul, [facility] [address] [id number] [place] [address] 76161- 5632 Jul, [facility] [address] [address] [id number] [place] [address] 51166- 2997 Jul, [facility] [address] [address] [id number] [place] [address] 15353- 1598 Jul, [facility] [address] [id number] [place] [address] 22799- 9938 Jul, [facility] [address] [place] [address] [id number] [place] [address] 32393- 7798 Jul, UTI (urinary tract infection) N39.0 [facility] [address] [place] [address] [id number] [place] [address] 09928- 7161 Jul, [facility] [address] [id number] [place] [address] 01455- 3000 Jul, Major depressive disorder, recurrent episode, moderate F33.1 and Generalized anxiety disorder F41.1 [facility] [address] [place] [id number] [place] [address] 38181- 2121 Jul, Generalized anxiety disorder F41.1 [facility] [address] [place] [address] 97526- 7806 Jul, Diarrhea R19.7 [facility] [address] [place] [id number] [place] [address] 94943- 1236 Jul, [facility] [address] [place] [address] [id number] [place] [address] 94137- 0313 Jun, [facility] [address] [place] [address] 18395- 9550 Jun, Eczema L30.9 [facility] [address], [place] [address]- 6616 Jun, [facility] [address], [place] [address]- 7696 Jun, COPD (chronic obstructive pulmonary disease) J44.9 [facility] [address], [place] [address] 2546 Jun, [facility] [address], [place] [address] 2549 Jun, Major depressive disorder, recurrent episode, moderate F33.1 and Generalized anxiety disorder F41.1 [facility] [address], [place] [address]- 8906 May, [facility] [address], [place] [address]- 5541 May, UTI (urinary tract infection) N39.0 [facility] [address] [address]- 4816 May, [facility] [address], [place] [address]- 0176 May, [facility] [address], [place] [address] 2540 May, [facility] [address], [place] [address] 2546 May, [facility] [address], [place] [address] 2546 Apr, Major depressive disorder, recurrent episode, moderate F33.1 and Generalized anxiety disorder F41.1 [facility] [address], [place] [address]- 6856 Apr, COPD (chronic obstructive pulmonary disease) J44.9 [facility] [address], [place] [address]- 5956 Apr, [facility] [address], [place] [address]- 7986 Apr, Atrial flutter I48.92 [facility] [address] [place] [address] [id number] [place] [address] 67077- 5860 Apr, [facility] [address] [id number] [place] [address] 16371- 7915 Apr, [facility] [address] [id number] [place] [address] 53744- 1209 Mar, [facility] [address] [id number] [place] [address] 70957- 5109 Mar, [facility] [address] [place] [address] [id number] [place] [address] 63353- 0361 Mar, [facility] [address] [place] [address] [id number] [place] [address] 75556- 0732 Mar, Hyperlipidemia E78.5 ; Type 2 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 ; Major depressive disorder, recurrent episode, moderate F33.1 and Chronic pain syndrome G89.4 [facility] [address] [place] [address] [id number] [place] [address] 30002- 3474 Mar, [facility] [address] [place] [address] [id number] [place] [address] 15400- 2684 Mar, [facility] [address] [place] [address] 03310- 6938 Mar, [facility] [address] [place] [address] 22213- 3602 Mar, [facility] [address] [place] [address] 16794- 2960 Feb, COPD (chronic obstructive pulmonary disease) J44.9 and Back pain M54.9 [facility] [address], [place] [address]- 7667 Feb, [facility] [address] [place] [address] [id number] [place] [address] 97189- 5866 Feb, [facility] [address], [place] [address]- 5321 Feb, [facility] [address] [address] [id number] [place] [address] 92485- 0566 Feb, [facility] [address] [place] [address] [id number] [place] [address] 57104- 9530 Feb, [facility] [address] [place] [address] [id number] [place] [address] 03280- 0633 Feb, [facility] [address] [place] [address] [id number] [place] [address] 95994- 1570 Feb, [facility] [id number] [place] [address] 79027- 4467 Feb, [facility] [address] [place] [id number] [place] [address] 80952- 5231 Feb, Diabetes E11.9 ; Back pain M54.9 and COPD (chronic obstructive pulmonary disease) J44.9 [facility] [address] [place] [address] [id number] [place] [address] 87162- 6736 Jan, [facility] [address] [place] [id number] [place] [address] 71931- 4286 Jan, Major depression, recurrent F33.9 and Generalized anxiety disorder F41.1 [facility] [address] [place] [address] 20916- 6563 Jan, Chronic pain G89.29 [facility] [address], [place] [address]- 8363 Jan, [facility] [address] [place] [id number] [place] [address] 69222- 0314 Jan, [facility] [address], [place] [address]- 3583 Jan, [facility] [address] [place] [address] 09389- 3319 Jan, [facility] [address] [place] [address] 75343- 7356 Jan, Nicotine dependence F17.200 [facility] [id number] [place] [address] 47286- 1240 Jan, Nicotine dependence F17.200 and Back pain M54.9 [facility] [id number] [place] [address] 31128- 4026 Jan, [facility] [id number] [place] [address] 39615- 9873 28 Dec, 2014 [facility] [id number] [place] [address] 21444- 6923 25 Dec, 2014 Anxiety, generalized 300.02 and Major depression, recurrent 296.30 [facility] [id number] [place] [address] 71272- 6852 24 Dec, 2014 [facility] [id number] [place] [address] 67040- 7649 21 Dec, 2014 [facility] [id number] [place] [address] 55630- 0979 17 Dec, 2014 [facility] [id number] [place] [address] 26482- 5151 15 Dec, 2014 [facility] [id number] [place] [address] 32994- 0871 14 Dec, 2014 [facility] [id number] [place] [address] 25956- 7500 11 Dec, 2014 [facility] [address] [place] [address] 89057- 9585 10 Dec, 2014 [facility] [id number] [place] [address] 11923- 0715 08 Dec, 2014 Skin tear 879.8 [facility] [address] [place] [address] 41901- 2986 08 Dec, 2014 Routine gynecological examination V72.31 ; Breast cancer screening V76.10 and Family history of breast cancer in first degree relative V16.3 [facility] [address], [place] [address]- 5368 Dec, [facility] [id number] [place] [address] 36561- 5656 Dec, [facility] [id number] [place] [address] 91965- 6186 Nov, [facility] [id number] [place] [address] 00825- 5780 Nov, [facility] [id number] [place] [address] 59123- 5664 Nov, Poor balance 781.99 and Vascular dementia, uncomplicated 290.40 [facility] [id number] [place] [address] 81826- 9789 Nov, [facility] [id number] [place] [address] 37840- 9391 Nov, Major depression, recurrent 296.30 and Anxiety, generalized 300.02 [facility] [id number] [place] [address] 16897- 0032 Nov, [facility] [id number] [place] [address] 76167- 4086 Nov, [facility] [address] [place] [address] 88158- 7376 Nov, [facility] [id number] [place] [address] 82158- 9028 Nov, [facility] [id number] [place] [address] 24606- 3316 Nov, Vascular dementia, uncomplicated 290.40 and Lumbago 724.2 [facility] [address] [place] [address] 61073- 4155 Nov, [facility] [id number] [place] [address] 80616- 3677 Nov, [facility] [address], [place] [address]- 7838 Nov, [facility] [address], [place] [address]- 3377 Oct, [facility] [address], [place] [address]- 9846 Oct, [facility] [address] [address]- 2562 Oct, [facility] [address], [place] [address]- 8963 Oct, COPD (chronic obstructive pulmonary disease) 496 and Hyperlipidemia 272.4 [facility] [address], [place] [address]- 1883 Oct, Major depression, recurrent 296.30 and Anxiety, generalized 300.02 [facility] [address], [place] [address]- 9350 Oct, [facility] [address], [place] [address]- 1338 Oct, [facility] [address], [place] [address]- 2381 Oct, [facility] [address], [place] [address]- 8949 Sep, Lumbago 724.2 and Anxiety state, unspecified 300.00 [facility] [address], [place] [address]- 0296 Sep, [facility] [address], [place] [address]- 5152 Sep, [facility] [id number] [address]- 1779 August, [facility] [id number] [address]- 1850 August, Major depression, recurrent 296.30 ; Anxiety, generalized 300.02 and No condition on [place] II V71.09 [facility] [address] [place] [address]- 7026 August, [facility] [id number] [place] [address]- 4326 August, [facility] [id number] [place] [address], [place] [address]- 2029 Jul, [facility] [address] [facility] [id number] [place] [address], [place] [address]- 3847 Jul, [facility] [id number] [place] [address], [place] [address]- 2037 Jul, [facility] [id number] [place] [address]- 4833 Jun, [facility] [id number] [place] [address], [place] [address]- 5194 30 Jun, 2014 [facility] [address] [address]- 9973 Jun, [facility] [address] [place] [address]- 5099 Jun, [facility] [address] [address]- 3202 Jun, [facility] [address], [place] [address]- 0015 Jun, [facility] [address], [place] [address]- 3220 23 Jun, 2014 [facility] [address] 8391 17 Jun, 2014 [facility] [address] [address]- 4327 13 Jun, 2014 [facility] [address] 5902 Jun, [facility] [place] [facility] [address] [id number] [place] [address]- 1788 10 Jun, 2014 [facility] [place] [facility] [address] [id number] [place] [address]- 1521 10 Jun, 2014 [facility] [place] [facility] [address] [id number] [place] [address]- 0535 07 Jun, 2014 [facility] [place] [facility] [address] [id number] [place] [address]- 8192 07 Jun, 2014 [facility] [place] [facility] [address] [id number] [place] [address]- 0797 02 Jun, 2014 [facility] [place] [facility] [address] [id number] [place] [address]- 4071 Jun, [facility] [place] [facility] [address] [facility] [id number] [place] [address]- 0692 May, [facility] [place] [facility] [address] [id number] [place] [address]- 9367 May, 2014 [facility] [place] [facility] [address] [id number] [place] [address]- 4518 May, 2014 [facility] [place] [facility] [address] [facility] [id number] [place] [address]- 7298 May, 2014 [facility] [place] [facility] [address] [facility] [id number] [place] [address]- 9147 May, 2014 [facility] [place] [facility] [address] [id number] [place] [address]- 4975 May, 2014 [facility] [place] [facility] [address] [id number] [place] [address]- 5338 May, 2014 [facility] [place] [facility] [address] [facility] [id number] [place] [address]- 1763 12 May, 2014 [facility] [place] [facility] [address] [facility] [id number] [place] [address]- 5563 May, 2014 [facility] [place] [facility] [address] [id number] [place] [address]- 2162 May, 2014 [facility] [place] [facility] [address] [id number] [place] [address]- 5602 May, 2014 [facility] [place] [facility] [address] [id number] [place] [address]- 2296 May, 2014 [facility] [place] [facility] [address] [id number] [place] [address]- 6506 May, 2014 [facility] [place] [facility] [address] [id number] [place] [address]- 2867 May, [facility] [place] [facility] [address] [id number] [place] [address]- 2605 Apr, [facility] [place] [facility] [address] [id number] [place] [address]- 9566 Apr, [facility] [place] [facility] [address] [id number] [place] [address]- 7280 Apr, [facility] [place] [facility] [address] [id number] [place] [address]- 6448 Apr, [facility] [place] [facility] [address] [id number] [place] [address]- 6747 Apr, [facility] [place] [facility] [address] [id number] [place] [address] Apr, [facility] [place] [facility] [address] [id number] [place] [address] Apr, [facility] [place] [facility] [address] [id number] [place] [address] Apr, [facility] [place] [facility] [address] [id number] [place] [address] Apr, [facility] [place] [facility] [address] [id number] [place] [address] Apr, [facility] [place] [facility] [address] [id number] [place] [address] Apr, [facility] [place] [facility] [address] [id number] [place] [address] Apr, [facility] [place] [facility] [address] [id number] [place] [address] Mar, [facility] [place] [facility] [address] [id number] [place] [address] Mar, [facility] [place] [facility] [address] [id number] [place] [address] 30 Mar, 2014 [facility] [place] [facility] [address] [id number] [place] [address] 30 Mar, 2014 [facility] [place] [facility] [address] [id number] [place] [address] Mar, [facility] [place] [facility] [address] [id number] [place] [address] 29 Mar, 2014 [facility] [place] [facility] [address] [id number] [place] [address] Mar, [facility] [place] [facility] [address] [id number] [place] [address] 19 Mar, 2014 [facility] [place] [facility] [address] [id number] [place] [address] 15 Mar, 2014 [facility] [place] [facility] [address] [id number] [place] [address] 15 Mar, 2014 [facility] [place] [facility] [address] [id number], [place] [address] 15 Mar, 2014 [facility] [place] [facility] [address] [id number] [place] [address] 15 Mar, 2014 [facility] [place] [facility] [address] [id number] [place] [address] 15 Mar, 2014 [facility] [place] [facility] [address] [id number] [place] [address] 15 Mar, 2014 [facility] [place] [facility] [address] [id number] [place] [address] Mar, [facility] [place] [facility] [address] [id number] [place] [address] Mar, [facility] [place] [facility] [address] [id number] [place] [address] Mar, [facility] [place] [facility] [address] [id number] [place] [address] Mar, [facility] [place] [facility] [address] [id number] [place] [address] Mar, [facility] [place] [facility] [address] [id number] [place] [address] Mar, [facility] [place] [facility] [address] [id number] [place] [address] Feb, [facility] [place] [facility] [address] [id number] [place] [address]- 0079 Feb, [facility] [place] [facility] [address] [id number] [place] [address]- 7079 Feb, [facility] [place] [facility] [address] [id number] [place] [address]- 0945 Feb, [facility] [place] [facility] [address] [facility] [id number] [place] [address]- 7034 Feb, [facility] [place] [facility] [address] [id number] [place] [address]- 8085 Feb, [facility] [place] [facility] [address] [id number] [place] [address]- 7059 Feb, [facility] [place] [facility] [address] [id number] [place] [address]- 1318 Feb, [facility] [place] [facility] [address] [id number] [place] [address]- 5073 Feb, [facility] [place] [facility] [address] [id number] [place] [address]- 4323 Feb, [facility] [place] [facility] [address] [id number] [place] [address]- 4911 Feb, [facility] [place] [facility] [address] [id number] [place] [address]- 6739 Feb, [facility] [place] [facility] [address] [id number] [place] [address] Feb, [facility] [place] [facility] [address] [id number] [place] [address]- 7427 Feb, [facility] [place] [facility] [address] [id number] [place] [address]- 7655 Feb, [facility] [place] [facility] [address] [id number] [place] [address]- 0136 Feb, [facility] [place] [facility] [address] [id number] [place] [address]- 9232 Feb, [facility] [place] [facility] [address] [id number] [place] [address]- 9746 Jan, [facility] [place] [facility] [address] [id number] [place] [address]- 1713 Jan, [facility] [place] [facility] [address] [id number] [place] [address]- 9839 Jan, [facility] [place] [facility] [address] [id number] [place] [address]- 1153 Jan, [facility] [place] [facility] [address] [id number] [address]- 0629 Jan, [facility] [place] [facility] [address] [id number] [place] [address]- 8150 Jan, [facility] [place] [facility] [address] [id number] [place] [address]- 5129 Jan, [facility] [place] [facility] [address] [id number] [place] [address] Jan, [facility] [place] [facility] [address] [id number][place] [address]- 3605 Jan, [facility] [place] [facility] [address] [id number] [place] [address]- 9693 Jan, [facility] [place] [facility] [address] [id number] [place] [address] Jan, [facility] [place] [facility] [address] [id number] [place] [address]- 8776 Dec, [facility] [place] [facility] [address] [id number] [place] [address]- 6037 Dec, [facility] [place] [facility] [address] [id number] [place] [address]- 6120 Nov, [facility] [place] [facility] [address] [id number] [place] [address]- 4249 Nov, [facility] [place] [facility] [address] [id number] [place] [address]- 9832 Nov, [facility] [place] [facility] [address] [id number] [place] [address]- 6184 Nov, [facility] [place] [facility] [address] [id number] [place] [address]- 1908 Nov, [facility] [place] [facility] [address] [id number] [place] [address]- 1444 Nov, [facility] [place] [facility] [address] [id number] [place] [address]- 6552 Nov, [facility] [place] [facility] [address] [id number] [place] [address]- 0538 Oct, [facility] [place] [facility] [address] [id number] [place] [address]- 3078 Oct, [facility] [place] [facility] [address] [id number] [place] [address]- 7165 Oct, [facility] [place] [facility] [address] [id number] [place] [address]- 8385 Oct, [facility] [place] [facility] [address] [id number] [place] [address]- 5671 30 Sep, 2013 [facility] [place] [facility] [address] [id number] [place] [address]- 9811 Sep, [facility] [place] [facility] [address] [id number] [place] [address]- 6535 Sep, [facility] [place] [facility] [address] [id number] [place] [address]- 5959 Sep, [facility] [place] [facility] [address] [id number] [place] [address]- 9466 Sep, [facility] [place] [facility] [address] [id number] [place] [address]- 3935 Sep, [facility] [place] [facility] [address] [id number] [place] [address]- 3322 Sep, [facility] [place] [facility] [address] [id number] [place] [address]- 9833 Sep, [facility] [place] [facility] [address] [id number] [place] [address]- 8195 Sep, [facility] [place] [facility] [address] [id number] [place] [address]- 4440 Sep, [facility] [place] [facility] [address] [id number] [place] [address]- 2790 Sep, [facility] [place] [facility] [address] [id number] [place] [address]- 9259 Sep, [facility] [place] [facility] [address] [id number] [place] [address]- 1014 Sep, [facility] [place] [facility] [address] [id number] [place] [address]- 9311 Sep, [facility] [place] [facility] [address] [id number] [place] [address]- 5067 August, [facility] [place] [facility] [address] [id number] [place] [address]- 3988 August, [facility] [address] [id number] [place] [address] 1896 August, [facility] [place] [facility] [address] [id number] [place] [address]- 2012 August, [facility] [place] [facility] [address] [id number] [place] [address]- 2756 August, [facility] [place] [facility] [address] [id number] [place] [address]- 0719 August, [facility] [place] [facility] [address] [id number] [place] [address]- 2237 August, [facility] [place] [facility] [address] [id number] [place] [address]- 3326 August, [facility] [place] [facility] [address] [id number] [place] [address]- 5248 August, [facility] [place] [facility] [address] [id number] [place] [address]- 7863 August, [facility] [place] [facility] [address] [id number] [place] [address]- 7653 August, [facility] [place] [facility] [address] [id number] [place] [address]- 4599 August, [facility] [place] [facility] [address] [id number] [place] [address]- 8043 August, [facility] [place] [facility] [address] [id number] [place] [address]- 9452 August, [facility] [place] [facility] [address] [id number] [place] [address]- 8238 August, [facility] [place] [facility] [address] [id number] [place] [address] August, [facility] [place] [facility] [address] [id number] [place] [address]- 6023 August, [facility] [place] [facility] [address] [id number] [place] [address]- 5787 August, [facility] [place] [facility] [address] [id number] [place] [address]- 0580 August, [facility] [place] [facility] [address] [id number] [place] [address]- 0617 Jul, [facility] [place] [facility] [address] [id number] [place] [address]- 8470 Jul, [facility] [place] [facility] [address] [id number] [place] [address]- 4184 Jul, [facility] [place] [facility] [address] [id number] [place] [address]- 0330 Jul, [facility] [place] [facility] [address] [id number] [place] [address]- 9596 Jun, [facility] [place] [facility] [address] [id number] [place] [address]- 8673 Jun, [facility] [place] [facility] [address] [id number] [place] [address]- 9033 Jun, [facility] [place] [facility] [address] [id number] [place] [address]- 2733 Jun, [facility] [place] [facility] [address] [id number] [place] [address]- 6838 Jun, [facility] [place] [facility] [address] [id number] [place] [address]- 5417 Jun, [facility] [place] [facility] [address] [id number] [place] [address]- 6734 Jun, [facility] [place] [facility] [address] [id number] [place] [address]- 6120 Jun, [facility] [place] [facility] [address] [id number] [place] [address]- 3218 Jun, [facility] [place] [facility] [address] [id number] [place] [address]- 4248 Jun, [facility] [place] [facility] [address] [id number] [place] [address]- 3695 May, [facility] [place] [facility] [address] [id number] [place] [address]- 3496 May, [facility] [place] [facility] [address] [id number] [place] [address]- 9554 May, [facility] [place] [facility] [address] [id number] [place] [address]- 9045 May, [facility] [place] [facility] [address] [id number] [place] [address]- 1391 May, [facility] [place] [facility] [address] [id number] [place] [address]- 6385 May, [facility] [place] [facility] [address] [facility] [id number] [place] [address]- 8801 May, [facility] [place] [facility] [address] [id number] [place] [address]- 3723 May, [facility] [place] [facility] [address] [id number] [place] [address]- 3613 May, [facility] [place] [facility] [address] [facility] [id number] [place] [address]- 4037 18 May, 2013 [facility] [place] [facility] [address] [facility] [id number] [place] [address]- 6898 18 May, 2013 [facility] [place] [facility] [address] [id number] [place] [address]- 2612 17 May, 2013 [facility] [place] [facility] [address] [id number] [place] [address]- 7523 May, [facility] [place] [facility] [address] [id number] [place] [address]- 7417 May, [facility] [place] [facility] [address] [facility] [id number] [place] [address]- 5345 10 May, 2013 [facility] [place] [facility] [address] [id number] [place] [address]- 2546 07 May, 2013 [facility] [address] [id number] [place] [address]- 3106 07 May, 2013 [facility] [address] [id number] [place] [address]- 2546 Apr, [facility] [address] [id number] [place] [address]- 2546 Apr, [facility] [address] [id number] [place] [address]- 2546 Apr, [facility] [address] [id number] [place] [address]- 1716 Apr, [facility] [address] [id number] [place] [address]- 1826 Apr, [facility] [address] [id number] [place] [address]- 4972 Apr, [facility] [address] [id number] [place] [address]- 5082 Apr, [facility] [address] [id number] [place] [address]- 9126 Mar, [facility] [address] [id number] [place] [address]- 4976 Mar[facility] [place] [facility] [address] [id number] [place] [address]- 2546 Mar, [facility] [address] [id number] [place] [address]- 6936 Mar, [facility] [place] [facility] [address] [id number] [place] [address]- 2546 Mar, [facility] [place] [facility] [address] [id number] [place] [address]- 2546 Mar, [facility] [place] [facility] [address] [id number] [place] [address]- 8047 Mar, [facility] [address] [id number] [place] [address]- 2138 Mar, [facility] [place] [facility] [address] [id number] [place] [address]- 6122 Mar, [facility] [place] [facility] [address] [id number] [place] [address]- 9642 Mar, [facility] [place] [facility] [address] [id number] [place] [address]- 4177 Mar, [facility] [place] [facility] [address] [id number] [place] [address]- 9313 Feb, [facility] [place] [facility] [address] [id number] [place] [address]- 7651 Feb, [facility] [place] [facility] [address] [id number] [place] [address]- 4460 Feb, [facility] [place] [facility] [address] [id number], [place] [address]- 3458 Feb, [facility] [place] [facility] [address] [id number] [place] [address]- 1849 Feb, [facility] [place] [facility] [address] [id number], [place] [address]- 1317 19 Feb, 2013 [facility] [place] [facility] [address] [id number], [place] [address]- 0582 15 Feb, 2013 [facility] [place] [facility] [address] [id number], [place] [address]- 6746 14 Feb, 2013 [facility] [place] [facility] [address] [id number] [place] [address]- 4952 14 Feb, 2013 [facility] [place] [facility] [address] [id number], [place] [address]- 6259 13 Feb, 2013 [facility] [place] [facility] [address] [id number], [place] [address]- 9276 13 Feb, 2013 [facility] [place] [facility] [address] [id number] [place] [address]- 9010 Feb, [facility] [place] [facility] [address] [id number] [place] [address]- 9885 Feb, [facility] [place] [facility] [address] [id number] [place] [address]- 3233 Feb, [facility] [place] [facility] [address] [id number] [place] [address]- 4593 Feb, [facility] [place] [facility] [address] [id number] [place] [address]- 5753 Feb, [facility] [place] [facility] [address] [id number] [place] [address]- 3612 Jan, [facility] [place] [facility] [address] [id number] [place] [address]- 7483 Jan, [facility] [place] [facility] [address] [id number] [place] [address]- 5301 Jan, [facility] [place] [facility] [address] [id number] [place] [address]- 1115 Jan, [facility] [place] [facility] [address] [id number] [place] [address]- 5677 Jan, [facility] [place] [facility] [address] [id number] [place] [address]- 0335 Jan, [facility] [place] [facility] [address] [id number] [place] [address]- 1757 Jan, [facility] [place] [facility] [address] [id number] [place] [address]- 6330 Jan, [facility] [place] [facility] [address] [id number] [place] [address]- 7790 10 Jan, 2013 [facility] [place] [facility] [address] [id number] [place] [address]- 2260 27 Dec, 2012 [facility] [place] [facility] [address] [id number] [place] [address]- 6198 20 Dec, 2012 [facility] [place] [facility] [address] [id number] [place] [address]- 2298 19 Dec, 2012 [facility] [place] [facility] [address] [id number] [place] [address]- 4703 10 Dec, 2012 [facility] [place] [facility] [address] [id number] [place] [address]- 2547 04 Dec, 2012 [facility] [place] [facility] [address] [id number] [place] [address]- 9030 03 Dec, 2012 [facility] [place] [facility] [address] [id number] [place] [address]- 7839 Nov, [facility] [place] [facility] [address] [id number] [place] [address]- 6091 Nov, [facility] [place] [facility] [address] [id number] [place] [address]- 9436 Nov, [facility] [place] [facility] [address] [id number] [place] [address]- 6021 Nov, [facility] [place] [facility] [address] [id number] [place] [address]- 2579 Nov, [facility] [place] [facility] [address] [id number] [place] [address]- 9090 Nov, [facility] [place] [facility] [address] [id number] [place] [address]- 1008 Nov, [facility] [place] [facility] [address] [id number] [place] [address]- 8088 Nov, [facility] [place] [facility] [address] [id number] [place] [address]- 2186 14 Nov, 2012 [facility] [place] [facility] [address] [id number] [place] [address]- 4397 Nov, [facility] [place] [facility] [address] [id number] [place] [address]- 8283 17 Oct, 2012 [facility] [place] [facility] [address] [id number] [place] [address]- 2626 Oct, [facility] [place] [facility] [address] [id number] [place] [address]- 3555 Oct, [facility] [place] [facility] [address] [id number] [place] [address]- 8030 Oct, [facility] [place] [facility] [address] [id number] [place] [address]- 4425 Oct, [facility] [place] [facility] [address] [id number] [place] [address]- 2247 Oct, [facility] [place] [facility] [address] [id number] [place] [address]- 5191 Oct, [facility] [place] [facility] [address] [id number] [place] [address]- 0156 Oct, [facility] [place] [facility] [address] [id number] [place] [address]- 4999 Sep, [facility] [place] [facility] [address] [id number] [place] [address]- 9201 Sep, [facility] [place] [facility] [address] [id number] [place] [address]- 1653 Sep, [facility] [place] [facility] [address] [id number] [place] [address]- 2022 Sep, [facility] [place] [facility] [address] [id number] [place] [address]- 4881 Sep, [facility] [place] [facility] [address] [id number], [place] [address]- 9351 Sep, [facility] [place] [facility] [address] [id number] [place] [address]- 5603 Sep, [facility] [place] [facility] [address] [id number] [place] [address]- 8821 Sep, [facility] [place] [facility] [address] [id number] [place] [address]- 0534 August, [facility] [place] [facility] [address] [id number] [place] [address]- 4060 August, [facility] [address] [id number] [place] [address]- 9301 August, [facility] [address] [id number] [place] [address]- 0861 August, [facility] [address] [id number] [place] [address]- 9688 August, [facility] [address] [id number] [place] [address]- 0982 Jul, [facility] [address] [id number] [place] [address]- 3165 Jul, [facility] [address] [id number] [place] [address]- 3552 Jul, [facility] [address] [id number] [place] [address]- 0260 Jul, [facility] [address] [id number] [place] [address]- 6976 Jul, [facility] [address] [id number] [place] [address] Jun, [facility] [address] [id number] [place] [address] 18 Jun, 2012 [facility] [address] [id number] [place] [address] 15 Jun, 2012 [facility] [address] [id number] [place] [address] 14 Jun, 2012 [facility] [address] [id number] [place] [address] 12 Jun, 2012 [facility] [address] [id number] [place] [address] 08 Jun, 2012 [facility] [address] [id number] [place] [address] 08 Jun, 2012 [facility] [address] [id number] [place] [address] Jun, [facility] [address] [id number] [place] [address] Jun, [facility] [address] [id number] [place] [address] May, [facility] [address] [id number] [place] [address] May, [facility] [address] [id number] [place] [address] May, [facility] [address] [id number] [place] [address] May, [facility] [address] [id number] [place] [address] Apr, [facility] [address] [id number] [place] [address] Apr, [facility] [address] [id number] [place] [address] Apr, [facility] [address] [facility] [id number][place] [address] Apr, [facility] [address] [id number][place] [address] Apr, [facility] [address] [id number][place] [address] Apr, [facility] [address] [id number] [place] [address] Apr, [facility] [address] [facility] [id number][place] [address] Mar, [facility] [address] [place] [id number] Mar, [facility] [address] [id number], [place] [address] Mar, [facility] [place] [facility] [address] [id number] [place] [address] Mar, [facility] [place] [facility] [address] [id number] [place] [address] Mar, [facility] [place] [facility] [address] [id number] [place] [address] Mar, [facility] [place] [facility] [address] [id number] [place] [address] 3717 Mar, [facility] [place] [facility] [address] [id number] [place] [address] Mar, [facility] [place] [facility] [address] [id number] [place] [address] Mar, [facility] [place] [facility] [address] [id number] [place] [address]6 Mar, [facility] [place] [facility] [address] [id number] [place] [address]666 Mar, [facility] [place] [facility] [address] [id number] [place] [address]- [address] Mar, [facility] [place] [facility] [address] [id number] [place] [address] Mar, [facility] [place] [facility] [address] [id number] [place] [address] 68[address] Mar, [facility] [place] [facility] [address] [id number], [place] [address] Mar, [facility] [place] [facility] [address] [id number] [place] [address] Mar, [facility] [place] [facility] [address] [id number] [place] [address] Mar, [facility] [place] [facility] [address] [id number] [place] [address] Feb, [facility] [place] [facility] [address] [id number] [place] [address] Feb, [facility] [place] [facility] [address] [id number] [place] [address]- 1455 Feb, [facility] [place] [facility] [address] [id number] [place] [address] 35[address] Feb, [facility] [place] [facility] [address] [id number] [place] [address] 24[address] Feb, [facility] [place] [facility] [address] [id number] [place] [address]- 80[address] Feb, [facility] [place] [facility] [address] [id number] [place] [address]- [address] Feb, [facility] [place] [facility] [address] [id number] [place] [address] 96[address] Feb, [facility] [place] [facility] [address] [id number] [place] [address] Feb, [facility] [place] [facility] [address] [id number] [place] [address]- [address] 16 Feb, 2012 [facility] [place] [facility] [address] [id number] [place] [address] Feb, [facility] [place] [facility] [address] [facility] [id number] [place] [address]70 Feb, [facility] [place] [facility] [address] [id number] [place] [address] Feb, [facility] [place] [facility] [address] [id number] [place] [address] 39[address] Feb, [facility] [place] [facility] [address] [id number] [place] [address] Feb, [facility] [place] [facility] [address] [id number] [place] [address]- 4878 Feb, [facility] [place] [facility] [address] [id number] [place] [address]- 6816 Jan, [facility] [place] [facility] [address] [id number] [place] [address]- [address]289 Jan, [facility] [place] [facility] [address] [id number] [place] [address]- 7342 Jan, [facility] [place] [facility] [address] [id number] [place] [address]- 7615 Jan, [facility] [place] [facility] [address] [id number] [place] [address]- 40[address] Jan, [facility] [place] [facility] [address] [id number] [place] [address]- 9818 Jan, [facility] [place] [facility] [address] [id number] [place] [address]- 8837 Jan, [facility] [place] [facility] [address] [id number] [place] [address]- 2890 Jan, [facility] [place] [facility] [address] [id number], [place] [address]- [address] Jan, [facility] [place] [facility] [address] [id number][place] [address]- 1033 Jan, [facility] [place] [facility] [address] [id number], [place] [address] Jan, [facility] [place] [facility] [address] [id number], [place] [address]- [address] Jan, [facility] [place] [facility] [address] [id number], [place] [address]- [address] Jan, [facility] [place] [facility] [address] [id number], [place] [address]- 4273 Jan, [facility] [place] [facility] [address] [id number], [place] [address]- 1640 Jan, [facility] [place] [facility] [address] [facility] [id number], [place] [address]- [address] Jan, [facility] [place] [facility] [address] [id number], [place] [address]- 2895 04 Jan, 2012 [facility] [place] [facility] [address] [id number] [place] [address] 2546 21 Dec, 2011 [facility] [place] [facility] [address] [id number] [place] [address] 2546 20 Dec, 2011 [facility] [place] [facility] [address] [id number] [place] [address] 2546 18 Dec, 2011 [facility] [place] [facility] [address] [id number] [place] [address] 2546 18 Dec, 2011 [facility] [place] [facility] [address] [id number] [place] [id number] Dec, 2011 [facility] [place] [facility] [address] [id number] [place] [address] 10 Dec, 2011 [facility] [place] [facility] [address] [id number] [place] [address] 8218 10 Dec, 2011 [facility] [place] [facility] [address] [id number] [place] [address] 07 Dec, 2011 [facility] [place] [facility] [address] [id number] [place] [address] 30 Nov, 2011 [facility] [place] [facility] [address] [id number] [place] [address]47 Nov, [facility] [place] [facility] [address] [id number] [place] [address] 254 Nov, [facility] [place] [facility] [address] [id number] [place] [address]- 2546 Nov, [facility] [place] [facility] [address] [id number] [place] [address] 4209 Nov, [facility] [place] [facility] [address] [id number] [place] [address]- 2543 16 Nov, 2011 [facility] [place] [facility] [address] [id number] [place] [address]- 9365 30 Oct, 2011 [facility] [place] [facility] [address] [id number] [place] [address] 5475 30 Oct, 2011 [facility] [place] [facility] [address] [id number] [place] [address] 2836 Oct, [facility] [place] [facility] [address] [id number] [place] [address] 8306 Oct, [facility] [place] [facility] [address] [id number] [place] [address]- 2046 Oct, [facility] [place] [facility] [address] [id number] [place] [address] 1566 Oct, [facility] [place] [facility] [address] [id number] [place] [address]- 2423 Oct, [facility] [place] [facility] [address] [id number] [place] [address]- 1436 Sep, [facility] [place] [facility] [address] [id number] [place] [address]- 0187 Sep, [facility] [place] [facility] [address] [id number] [place] [address]- 3728 Sep, [facility] [place] [facility] [address] [id number] [place] [address]- 6603 Sep, [facility] [place] [facility] [address] [id number] [place] [address]- 1491 Sep, [facility] [place] [facility] [address] [id number] [place] [address] 6578 15 Sep, 2011 [facility] [place] [facility] [address] [id number] [place] [address]- 2541 14 Sep, 2011 [facility] [place] [facility] [address] [id number] [place] [address]- 5442 11 Sep, 2011 [facility] [place] [facility] [address] [id number] [place] [address] 2546 05 Sep, 2011 [facility] [place] [facility] [address] [id number] [place] [address]- 3474 Sep, [facility] [address] [id number] [place] [address]- 6951 August, [facility] [place] [facility] [address] [id number] [place] [address]- 4087 August, [facility] [place] [facility] [address] [id number] [place] [address]- 5957 August, [facility] [place] [facility] [address] [id number] [place] [address]- 5578 August, [facility] [place] [facility] [address] [id number] [place] [address]- 0768 August, [facility] [place] [facility] [address] [id number] [place] [address]- 1493 Jul, [facility] [place] [facility] [address] [id number] [place] [address]- 9190 Jul, [facility] [place] [facility] [address] [id number] [place] [address]- 6401 Jul, [facility] [place] [facility] [address] [id number] [place] [address] 2948 Jul, [facility] [place] [facility] [address] [id number] [place] [address]- 9270 Jul, [facility] [place] [facility] [address] [id number] [place] [address]- 3685 Jul, [facility] [place] [facility] [address] [id number][place] [address] 2740 Jul, [facility] [place] [facility] [address] [id number] [place] [address]- 8786 Jun, [facility] [place] [facility] [address] [id number] [place] [address]- 2863 Jun, [facility] [place] [facility] [address] [id number] [place] [address]- 6201 Jun, [facility] [place] [facility] [address] [id number] [place] [address] 8115 Jun, [facility] [place] [facility] [address] [id number] [place] [address]- 9006 Jun, [facility] [place] [facility] [address] [id number] [place] [address]- 9726 May, [facility] [place] [facility] [address] [id number] [place] [address] 2546 May, [facility] [place] [facility] [address] [id number] [place] [address] 254 May, [facility] [place] [facility] [address] [id number] [place] [address], [place] [address]- 2846 May, [facility] [place] [facility] [address] [facility] [id number] [place] [address]- 4526 May, [facility] [place] [facility] [id number] [place] [address] May, [facility] [place] [facility] [address] [id number] [place] [address]- 5778 Apr, [facility] [place] [facility] [id number] [place] [address] 9467 Mar, [facility] [place] [facility] [address] [id number] [place] [address] 0615 Feb, [facility] [place] [facility] [address] [facility] [id number] [place] [address] 2546 Feb, [facility] [place] [facility] [address] [id number] [place] [address] 2546 Feb, [facility] [place] [facility] [address] [facility] [id number] [place] [address]- 7008 Feb, [facility] [place] [facility] [address] [facility] [id number] [place] [address]- 2546 Jan, [facility] [place] [facility] [address] [facility] [id number] [place] [address]- 1644 Jan, [facility] [place] [facility] [address] [id number] [place] [address]- 9780 26 Jan, 2011 [facility] [place] [facility] [address] [id number] [place] [address]- 1366 24 Jan, 2011 [facility] [place] [facility] [address] [id number] [place] [address]- 1480 14 Jan, 2011 [facility] [place] [facility] [address] [id number] [place] [address]- 4326 19 Dec, 2010 [facility] [place] [facility] [address] [id number] [place] [address]- 6358 Oct, [facility] [place] [facility] [address] [id number] [place] [address]- 6411 August, [facility] [place] [facility] [address] [id number] [place] [address]- 1730 29 Mar, 2010 [facility] [place] [facility] [address] [id number] [place] [address]- 2443 27 Mar, 2010 [facility] [place] [facility] [address] [id number] [place] [address]- 3922 16 Mar, 2010 [facility] [place] [facility] [address] [id number] [place] [address]- 4758 15 Mar, 2010 [facility] [place] [facility] [address] [id number] [place] [address] 2547 15 Mar, 2010 [facility] [place] [facility] [address] [id number] [place] [address] 2540 08 Mar, 2010 [facility] [place] [facility] [address] [id number] [place] [address] 2546 03 Mar, 2010 [facility] [place] [facility] [address] [id number] [place] [address]- 2540 24 Feb, 2010 [facility] [place] [facility] [address] [id number] [place] [address] 24 Feb, 2010 [facility] [place] [facility] [address] [id number][place] [address]- 3297 15 Feb, 2010 [facility] [place] [facility] [address] [id number] [place] [address]- 5804 19 Jan, 2010 [facility] [place] [facility] [address] [id number], [place] [address]- 8419 18 Jan, 2010 [facility] [place] [facility] [address] [id number] [place] [address]- 0836 18 Jan, 2010 [facility] [place] [facility] [address] [id number], [place] [address]- 5294 Nov, [facility] [place] [facility] [address] [id number] [place] [address], [place] [address]- 5174 14 Sep, 2009 [facility] [place] [facility] [address] [id number], [place] [address]- 8348 August, [facility] [place] [facility] [address] [facility] [id number], [place] [address]- 6510 30 Mar, 2009 [facility] [place] [facility] [address] [id number], [place] [address]- 5563 Mar, [facility] [place] [facility] [address] [facility] [id number][place] [address]- 6685 17 Feb, 2009 [facility] [place] [facility] [address] [facility] [id number], [place] [address]- 9656 10 Feb, 2009 [facility] [place] [facility] [address] [facility] [id number], [place] [address]- 9295 10 Feb, 2009 [facility] [place] [facility] [address] [id number], [place] [address]- 3076 10 Feb, 2009 [facility] [place] [facility] [address] [facility] [id number], [place] [address]- 8361 06 Feb, 2009 [facility] [place] [facility] [address] [facility] [id number], [place] [address]- 4762 27 Jan, 2009 [facility] [place] [facility] [address] [facility] [id number], [place] [address]- 7414 26 Jan, 2009 [facility] [place] [facility] [address] [id number], [place] [address] Jan, [facility] [id number], [place] [address] 1703 Jan, [facility] [id number], [place] [address] 4453 Nov, [facility] [id number], [place] [address]- 4043 Sep, [facility] [id number], [place] [address]- 0825 August, [facility] [id number] [place] [address]- 1625 Jul, [facility] [id number], [place] [address]- 6312 May, IMMUNIZATIONS No Known Immunizations SOCIAL HISTORY Never Assessed REASON FOR VISIT PLAN OF CARE VITAL SIGNS MEDICATIONS Medication Instructions Dosage Frequency Start Date End Date Duration Status Omeprazole 40 mg Orally Once a day 1 capsule 24h Active RESULTS No Results PROCEDURES No [...] Knee Surgery 07/16/17 Hospitalization History [facility] [place]- left hand/wrist swelling 10/09/2017
--- OUTSIDE RECORDS SUMMARY | 2018-01-01 11:54 | XMS REPORT ---
Author Author [facility] Address [address] [place] [address] Care Team Providers Care [employer] Name Role Phone SENAIT DUNLAP Unavailable PROBLEMS Type Condition ICD9-CM Code [id number] Code Onset Dates Condition Status SNOMED Code Problem History of common bile duct surgery Z98.89 Active 768896210 Problem Barretts esophagus K22.70 Active 256522750 Problem 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 Active 60372962 Problem Colon polyp K63.5 Active 53817360 Problem Bilateral low back pain without sciatica M54.5 Active 579610670 Problem Screening breast examination Z12.39 Active 445060194 Problem Postmenopausal Z78.0 Active 14467766 Problem Osteopenia M85.80 Active 710163054 Problem Cigarette nicotine dependence without complication F17.210 Active 02228410 Problem Type 2 diabetes mellitus with diabetic peripheral angiopathy without gangrene E11.51 Active 809410535 Problem Vascular dementia without behavioral disturbance F01.50 Active [id number] Problem Unspecified atherosclerosis of kake arteries of extremities, unspecified extremity I70.209 Active 105338990401499 Problem Arthritis M19.90 Active 1542554 Problem Chronic atrial fibrillation I48.2 Active 847964791 Problem Chronic obstructive pulmonary disease with acute lower respiratory infection J44.0 Active 922237501 Problem Other chronic pancreatitis K86.1 Active 392124901 Problem Stress incontinence of urine N39.3 Active 24633008 Problem Controlled type 2 diabetes mellitus without complication, without long -term current use of insulin E11.9 Active 983607290 Problem Unspecified psychosis F29 Active 02039649 Problem Xeroderma Q80.9 Active 25074086 Problem COPD (chronic obstructive pulmonary disease) J44.9 Active 01206024 Problem Dementia without behavioral disturbance, unspecified dementia type F03.90 Active 51741421 Problem Gastroparesis K31.84 Active 563391691 Problem Type 2 diabetes mellitus with diabetic neuropathy, without long-term current use of insulin E11.40 Active 52673429 Problem Osteoporosis M81.0 Active 51806234 Problem Atherosclerosis of kake artery of both lower extremities with intermittent claudication I70.213 Active 985089486660238 Problem Hyperlipidemia E78.5 Active 95161072 Problem Diabetic polyneuropathy associated with type 2 diabetes mellitus E11.42 Active 34889849 Problem Essential tremor G25.0 Active 18744861 Problem 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 Active 1477849379909 Problem Generalized anxiety disorder F41.1 Active 955953466 Problem Gastroesophageal reflux disease, esophagitis presence not specified K21.9 Active 923320811 Problem Coronary artery disease involving kake coronary artery of kake 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 I25.118 Active 2222625422574 Problem Postconcussion syndrome F07.81 Active 68839386 Problem Chronic pain syndrome G89.4 Active 679948466 Problem Migraine without aura and without status migrainosus, not intractable G43.009 Active 069095963 Problem Paroxysmal atrial fibrillation I48.0 Active 136123157 Problem Migraine without aura and with status migrainosus, not intractable G43.001 Active 885238588 Problem Cervicalgia M54.2 Active 6098354536348 Problem Acute exacerbation of chronic obstructive pulmonary disease (COPD) J44.1 Active 403078285 Problem Major depressive disorder, recurrent episode, moderate F33.1 Active 673964389 Problem Crohn''s disease without complication, unspecified gastrointestinal tract location K50.90 Active 56683595 Problem Chronic fatigue R53.82 Active 44910962 Problem Bipolar affective disorder, currently depressed, moderate F31.32 Active 510493506 ALLERGIES No Information ENCOUNTERS Encounter Location Date Diagnosis [id number] [facility] [id number] [address] Nov, [facility] [id number] [address] Nov, [place] [id number] [address] Oct, [facility] [id number] [address] Oct, Bipolar affective disorder, currently depressed, moderate F31.32 ; Vascular dementia without behavioral disturbance F01.50 and Generalized anxiety disorder F41.1 [facility] [id number] [place] [address] 58356- 7258 Oct, [facility] [id number] [place] [address] 12130- 4359 Oct, [facility] [id number] [place] [address] 22114- 2610 Oct, Edema of both legs R60.0 [facility] [id number] [place] [address] 96567- 0951 Oct, [facility] [id number] [place] [address] 11336- 0964 Sep, [facility] [id number] [place] [address] 91667- 2842 Sep, [facility] [id number] [place] [address] 64100- 4405 Sep, [facility] [id number] [place] [address] 79515- 8065 Sep, Encounter for well woman exam with routine gynecological exam Z01.419 ; Screening for STDs (sexually transmitted diseases) Z11.3 ; Screening breast examination Z12.31 and Overweight (BMI 25.0-29.9) E66.3 [facility] [address] [address] 0[address] Sep, [facility] [id number] [address] 6581 Sep, [facility] [id number] [place] [address] 86647- 6347 Sep, [facility] [id number] [place] [address] 93910- 2431 August, [facility] [id number] [address] 0080 August, [facility] [id number] [address] 9542 August, Type 2 diabetes mellitus with diabetic neuropathy, without long-term current use of insulin E11.40 and Sprain of right ankle, unspecified ligament, initial encounter S93.401A [facility] [id number] [address] 8587 August, [facility] [id number] [place] [address] 38901- 6132 August, [facility] [id number] [place] [address] 19269- 0670 August, [facility] [id number] [place] [address] 03873- 9832 August, Gastroesophageal reflux disease, esophagitis presence not specified K21.9 [facility] [id number] [place] [address] 82270- 7853 August, [facility] [id number] [place] [address] 37327- 4008 August, [facility] [id number] [place] [address] 68048- 0560 August, [facility] [id number] [place] [address] 14003- 1670 August, Type 2 diabetes mellitus with diabetic neuropathy, without long-term current use of insulin E11.40 and Elevated liver enzymes R74.8 [facility] [address] [place] [address] 25091- 1923 Jul, [facility] [id number] [place] [address] 42606- 3040 Jul, Cough R05 [facility] [address] [place] [address] 67879- 6575 Jul, [facility] [address] [address]- 4869 Jul, [facility] [id number] [place] [address] 52079- 4331 Jul, Bipolar affective disorder, currently depressed, moderate F31.32 ; Vascular dementia without behavioral disturbance F01.50 and Generalized anxiety disorder F41.1 [facility] [id number] [place] [address] 54823- 5821 Jul, [facility] [address] 04418- 8560 Jul, Type 2 diabetes mellitus with diabetic neuropathy, without long-term current use of insulin E11.40 and Elevated liver enzymes R74.8 [facility] [address] 99463- 9704 Jul, [facility] [id number] [place] [address] 83128- 5585 Jul, [facility] [id number] [place] [address] 41980- 5630 Jul, [facility] [id number] [place] [address] 35677- 8718 Jul, Post-menopausal Z78.0 [facility] [address] 82538- 7448 Jul, Stress incontinence of urine N39.3 [facility] [id number] [place] [address] 12841- 0580 Jul, [facility] [id number] [place] [address] 21553- 1019 Jul, [facility] [id number] [place] [address] 83478- 0140 Jul, Stress incontinence of urine N39.3 and Cough R05 [facility] [id number] [place] [address] 00546- 9689 Jul, [facility] [id number] [place] [address] 74490- 9204 Jul, [facility] [id number] [place] [address] 57445- 8236 Jul, [facility] [id number] [place] [address] 69054- 4261 Jul, Gastroesophageal reflux disease, esophagitis presence not specified K21.9 [facility] [address] [place] [address] 79687- 9310 Jun, Diabetic polyneuropathy associated with type 2 diabetes mellitus E11.42 [facility] [id number] [place] [address] 56141- 6258 Jun, Diabetic polyneuropathy associated with type 2 diabetes mellitus E11.42 ; Coronary artery disease involving kake coronary artery of kake 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 I25.118 and Paroxysmal atrial fibrillation I48.0 [place] [id number] [place] [address] 01581- 6793 Jun, [place] [id number] [place] [address] 26766- 4837 Jun, [facility] [id number] [place] [address] 86060 254 Jun, Gastroenteritis K52.9 [facility] [id number] [place] [address] 67669 2546 Jun, Gastroenteritis K52.9 [facility] [address] [place] [address] 72673 2540 Jun, [facility] [id number] [place] [address] 05668 2547 Jun, [facility] [address] [place] [address] 98366- 0757 Jun, Sprain of right ankle, unspecified ligament, initial encounter S93.401A ; Type 2 diabetes mellitus with diabetic neuropathy, without long-term current use of insulin E11.40 ; Atherosclerosis of kake artery of both lower extremities with intermittent claudication I70.213 ; 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 [address] [place] [address] 63216 -5208 17 Jun, 2017 Cough R05 and Chronic obstructive pulmonary disease with acute lower respiratory infection J44.0 [facility] [id number] [place] [address] 29117- 9853 Jun, [place] [id number] [place] [address] 14924- 8048 Jun, Coughing R05 ; Unspecified atherosclerosis of kake arteries of extremities, unspecified extremity I70.209 ; Type 2 diabetes mellitus with diabetic peripheral angiopathy without gangrene E11.51 ; Crohn''s disease without complication, unspecified gastrointestinal tract location K50.90 ; Other chronic pancreatitis K86.1 and Chronic atrial fibrillation I48.2 [facility] [id number] [place] [address] 68520 -1126 Jun, [place] [id number] [place] [address] 60346- 1355 Jun, Bipolar affective disorder, currently depressed, moderate F31.32 ; Vascular dementia without behavioral disturbance F01.50 and Generalized anxiety disorder F41.1 [place] [id number] [place] [address] 99598- 5354 May, Generalized anxiety disorder F41.1 [place] [id number] [place] [address] 06328- 1301 May, [place] [id number] [place] [address] 03501- 9838 May, [place] [id number] [place] [address] 00466- 3990 May, Coughing R05 [place] [id number] [place] [address] 33425- 8559 09 May, 2017 [place] [id number] [place] [address] 96772- 1701 May, Bipolar affective disorder, currently depressed, moderate F31.32 ; Vascular dementia without behavioral disturbance F01.50 and Generalized anxiety disorder F41.1 [place] [id number] [place] [address] 92820- 9835 Apr, Generalized anxiety disorder F41.1 [place] [id number] [place] [address] 51286- 5744 Apr, [place] [id number] [place] [address] 99239- 7002 Apr, Vascular dementia without behavioral disturbance F01.50 ; Generalized anxiety disorder F41.1 and Bipolar affective disorder, currently depressed, moderate F31.32 [place] [id number] [place] [address] 33475- 2847 Apr, Generalized anxiety disorder F41.1 [facility] [id number] [place] [address] 73302 -2100 Apr, Cough R05 and Acute exacerbation of chronic obstructive pulmonary disease (COPD) J44.1 [place] [id number] [place] [address] 84116- 9523 Apr, [facility] [id number] [place] [address] 28223 -3348 Mar, Cough R05 and Cigarette nicotine dependence without complication F17.210 [place] [id number] [place] [address] 71186- 2492 Mar, [place] [id number] [place] [address] 59880- 4098 Feb, Generalized anxiety disorder F41.1 ; Major depressive disorder, recurrent episode, moderate F33.1 ; Vascular dementia without behavioral disturbance F01.50 and Unspecified psychosis F29 [place] [id number] [place] [address] 62741- 9353 Feb, [place] [id number] [place] [address] 43748- 6817 Feb, [place] [id number] [place] [address] 13542- 6674 Feb, Generalized anxiety disorder F41.1 [place] [id number] [place] [address] 26678- 2187 Feb, Generalized anxiety disorder F41.1 [place] [address] 36022- 6050 Feb, Dizziness R42 ; Chronic fatigue R53.82 ; Postconcussion syndrome F07.81 ; Fall, initial encounter W19.XXXA and Disorientation R41.0 [place] [address] 44254- 8428 Feb, Postconcussion syndrome F07.81 ; Injury of head, initial encounter S09.90XA ; Fall, initial encounter W19.XXXA ; Disorientation R41.0 and Acute cystitis with hematuria N30.01 [place] [address] 58232- 7547 Jan, Gastroesophageal reflux disease, esophagitis presence not specified K21.9 ; Post-menopausal Z78.0 and Migraine without aura and without status migrainosus, not intractable G43.009 [place] [id number] [place] [address] 69249- 6457 Jan, [place] [id number] [place] [address] 58830- 0186 Jan, Generalized anxiety disorder F41.1 ; Major depressive disorder, recurrent episode, moderate F33.1 ; Vascular dementia without behavioral disturbance F01.50 and Unspecified psychosis F29 [place] [address] 94916- 5363 Jan, Pneumonia of left lower lobe due to infectious organism J18.1 [place] [id number] [place] [address] 92871- 1753 Jan, Migraine without aura and with status migrainosus, not intractable G43.001 [facility] [address] [address] 04 Jan, 2017 Migraine without aura and without status migrainosus, not intractable G43.009 [facility] [address] [place] [address] 60326- 7834 19 Dec, 2016 Hematoma T14.8 [facility] [id number] [place] [address] 15569- 1955 Dec, [facility] [id number] [place] [address] 16864 -6348 Nov, Fatigue, unspecified type R53.83 [place] [id number] [place] [address] 14128- 9090 Nov, Scabies B86 and Coronary artery disease involving kake coronary artery of kake 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 I25.118 [place] [id number] [place] [address] 30010- 6014 Nov, [facility] [id number] [place] [address] 81828- 2091 Nov, [place] [id number] [place] [address] 02590- 3053 Oct, [place] [id number] [place] [address] 19958- 2138 Oct, Generalized anxiety disorder F41.1 and Major depressive disorder, recurrent episode, moderate F33.1 [facility] [address] [place] [address] 74483- 3018 Oct, Cramp of both lower extremities R25.2 [place] [id number] [place] [address] 18207- 6002 Oct, Leg cramps R25.2 [place] [id number] [place] [address] 21613- 9748 Oct, Chronic pain syndrome G89.4 [place] [id number] [address]- 5108 17 Oct, 2016 [facility] [address] [place] [address] 21728- 7821 14 Oct, 2016 [facility] [id number] [place] [address] 05192- 7070 11 Oct, 2016 Routine gynecological examination Z01.419 and Screening for breast cancer Z12.31 [place] [id number] [place] [address] 36795- 8966 28 Sep, 2016 Diarrhea R19.7 [place] [id number] [place] [address] 87076- 3156 Sep, Back pain M54.9 [place] [id number] [place] [address] 16840- 0677 Sep, [place] [id number] [place] [address] 06708- 8531 Sep, [facility] [id number] [place] [address] 97804 -3355 August, Xeroderma Q80.9 [place] [id number] [place] [address] 67527- 7165 August, Dementia without behavioral disturbance, unspecified dementia type F03.90 [place] [id number] [place] [address] 17640- 0788 August, Chronic pain syndrome G89.4 [place] [id number] [place] [address] 51237- 9998 August, [facility] [id number] [place] [address] 90966- 2902 August, Hyperlipidemia E78.5 ; Other fatigue R53.83 and Other specified hypotension I95.89 [facility] [address] [address]107 August, Dysuria R30.0 ; Other fatigue R53.83 and Other specified hypotension I95.89 [facility] [id number] [place] [address] 02081- 1737 August, [facility] [address] 15501- 0459 Jul, Pain in left knee M25.562 and Gastroenteritis K52.9 [facility] [address] 02257- 8039 Jul, [facility] [address] 85185- 8738 Jul, Diarrhea R19.7 [facility] [address] 39628 -0481 Jul, Spider bite, accidental or unintentional, initial encounter T63.301A [place] [address] 07048- 6272 Jul, Primary osteoarthritis of right knee M17.11 and Arthritis M19.90 [facility] [address] 47571- 6549 Jul, Generalized anxiety disorder F41.1 and Major depressive disorder, recurrent episode, moderate F33.1 [facility] [id number] [place] [address] 05031- 2222 Jul, Type 2 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 and Temporal headache R51 [facility] [id number] [place] [address] 27989- 5616 Jul, Back pain M54.9 [facility] [id number] [place] [address] 63293- 1899 Jul, [facility] [address] 53026- 4173 Jul, [facility] [id number] [place] [address] 58212- 3968 Jun, Nausea R11.0 [facility] [address] [place] [address] Jun, Acute suppurative otitis media of both ears without spontaneous rupture of tympanic membranes, recurrence not specified H66.003 and COPD exacerbation J44.1 [facility] [address] 35140- 1876 Jun, Generalized anxiety disorder F41.1 [place] [address] 39508- 5213 16 Jun, 2016 [facility] [address] 00649 -1580 Jun, [facility] [address] 31872 -6931 Jun, Shortness of breath R06.02 and COPD exacerbation J44.1 [place] [address] 64959- 8207 Jun, Eczema, unspecified type L30.9 [place] [address] 72037- 5514 Jun, [place] [address] 67507- 3515 May, [place] [id number] [place] [address] 55687- 1705 May, Muscle cramping R25.2 [place] [id number] [place] [address] 64265- 7401 May, [place] [address] 28357- 6433 Apr, Diarrhea R19.7 [place] [address] 89330- 2368 Apr, [place] [id number] [place] [address] 25295- 1782 Apr, Chronic pain syndrome G89.4 [place] [address] [id number] [place] [address] 63678- 0424 16 Apr, 2016 Cramp of both lower extremities R25.2 and Vascular dementia without behavioral disturbance F01.50 [place] [address] 11464- 1329 Apr, Type 2 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 and Cigarette nicotine dependence without complication F17.210 [place] [address] [address] Mar, Generalized anxiety disorder F41.1 [place] [address] [address] Feb, Generalized anxiety disorder F41.1 and Major depressive disorder, recurrent episode, moderate F33.1 [place] [address] [address] Feb, [facility] [address] [address] Feb, Dysuria R30.0 and Acute cystitis with hematuria N30.01 [place] [address] [address] Jan, [place] [address] [address] Jan, [place] [address] [address] Jan, [place] [address] [address]- 2492 Jan, [facility] [address] [address] Jan, Wasp sting, accidental or unintentional, initial encounter T63.461A [place] [address] [address]- 3683 06 Jan, 2016 Encounter for immunization Z23 [place] [address] [address]- 4764 Jan, [facility] [address] [address] Jan, [facility] [address] [place] [id number] [place] [address] 87765- 2933 28 Dec, 2015 Generalized anxiety disorder F41.1 and Major depressive disorder, recurrent episode, moderate F33.1 [facility] [address] [id number] [place] [address] 21978- 4525 21 Dec, 2015 Routine gynecological examination Z01.419 ; Postmenopausal Z78.0 ; Screening breast examination Z12.39 ; Osteopenia M85.80 and Breast cancer screening Z12.39 [facility] [address] [id number] [place] [address] 60937- 0253 20 Dec, 2015 [facility] [address] [id number] [place] [address] 79913- 4314 19 Dec, 2015 [facility] [id number] [place] [address] 83286- 3653 16 Dec, 2015 [facility] [id number] [place] [address] 95175- 0945 16 Dec, 2015 [facility] [address] [id number] [place] [address] 52328- 0699 14 Dec, 2015 [facility] [id number] [place] [address] 94983- 4608 Dec, [facility] [id number] [place] [address] 30272- 9304 Nov, [facility] [id number] [place] [address] 15783 -4387 Nov, Cough R05 ; Other viral agents as the cause of diseases classified elsewhere B97.89 and Acute upper respiratory infection, unspecified J06.9 [facility] [address] [address] 2092 Nov, [facility] [id number] [place] [address] 84137- 1420 Nov, [facility] [address] [address] 3912 Nov, [facility] [address] [address]- 5369 Nov, [facility] [address] [address]- 2060 Nov, [facility] [id number] [place] [address] 43007- 2739 Oct, [facility] [id number] [place] [address] 67834- 4416 Oct, [facility] [id number] [address]- 5626 Oct, [facility] [id number] [place] [address] 57548- 4980 Oct, Chronic pain syndrome G89.4 [facility] [address] [address]- 6291 Sep, Generalized anxiety disorder F41.1 and Major depressive disorder, recurrent episode, moderate F33.1 [facility] [address] [address]- 1674 Sep, [facility] [address] [address]- 1207 Sep, [facility] [address] [address]- 6578 14 Sep, 2015 Generalized anxiety disorder F41.1 [facility] [address] [address]- 8479 13 Sep, 2015 Cramp of both lower extremities R25.2 and Cervicalgia M54.2 [facility] [address] [address]- 6201 06 Sep, 2015 Generalized anxiety disorder F41.1 [facility] [id number] [address]- 9154 Sep, [facility] WALK IN [facility] [id number] [place] [address] 78942 -9662 August, Rash R21 ; Itching L29.9 and Allergic response, subsequent encounter T78.40XD [facility] [address] [id number] [place] [address] 37087- 8394 August, Primary insomnia F51.01 [facility] WALK IN [facility] [address] [id number] [place] [address] 04305 -6942 August, Rash R21 ; Itching L29.9 and Allergic response, initial encounter T78.40XA [place] [address] [id number] [place] [address] 27683- 4829 August, [place] [address] [place] [id number] [place] [address] 61558- 4553 August, Cramp of both lower extremities R25.2 [place] [address] [place] [id number] [place] [address] 71366- 1734 August, Back pain M54.9 [place] [address] [place] [id number] [place] [address] 49945- 0505 August, [place] [address] [place] [id number] [place] [address] 49476- 6851 August, [facility] WALK IN [facility] [address] [id number] [place] [address] 03772 -0650 August, Cramp of both lower extremities R25.2 [place] [address] [id number] [place] [address] 26959- 6449 August, [place] [address] [place] [id number] [place] [address] 13996- 3938 August, Syncope R55 ; Paroxysmal atrial fibrillation I48.0 ; Dementia without behavioral disturbance, unspecified dementia type F03.90 and Chronic pain syndrome G89.4 [place] [address] [place] [id number] [place] [address] 68260- 9067 August, Type 2 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 and Syncope R55 [facility] [address] [id number] [place] [address] 80691- 2160 Jul, [facility] [id number] [place] [address] 68635- 9920 Jul, [facility] [id number] [place] [address] 48364- 8780 Jul, [facility] [id number] [place] [address] 00968- 4440 Jul, [facility] [id number] [place] [address] 52964- 4459 Jul, [facility] [id number] [place] [address] 11927- 9010 Jul, UTI (urinary tract infection) N39.0 [facility] [id number] [place] [address] 62231- 5500 Jul, [facility] [address] [place] [id number] [place] [address] 41212- 8280 Jul, Major depressive disorder, recurrent episode, moderate F33.1 and Generalized anxiety disorder F41.1 [facility] [address] [place] [id number] [place] [address] 74945- 0385 Jul, Generalized anxiety disorder F41.1 [facility] [address] [place] [address] 85075- 6589 Jul, Diarrhea R19.7 [facility] [address] [place] [address] 71268- 0526 Jul, [facility] [address] [place] [address] 75578- 8667 Jun, [facility] [address] [place] [address] 40054- 4438 Jun, Eczema L30.9 [facility] [address] [address]- 4172 Jun, [facility] [address] [address]- 7986 Jun, COPD (chronic obstructive pulmonary disease) J44.9 [facility] [address] [address]- 8256 Jun, [facility] [address] [place] [address] 15141- 1226 Jun, Major depressive disorder, recurrent episode, moderate F33.1 and Generalized anxiety disorder F41.1 [facility] [address] [address]- 3346 May, [facility] [address] [address]- 6603 May, UTI (urinary tract infection) N39.0 [facility] [address] [address]- 9255 May, [facility] [address] [address]- 3879 May, [facility] [address] [address]- 8344 May, [facility] [address] [address]- 4186 May, [facility] [address] [address]- 5391 Apr, Major depressive disorder, recurrent episode, moderate F33.1 and Generalized anxiety disorder F41.1 [facility] [address] [address]- 8670 Apr, COPD (chronic obstructive pulmonary disease) J44.9 [facility] [address] [address]- 2986 Apr, [facility] [id number] [address]- 3135 Apr, Atrial flutter I48.92 [facility] [id number] [place] [address] 04127- 5874 Apr, [facility] [address] [place] [address] [id number] [place] [address] 20619- 8058 Apr, [facility] [address] [place] [id number] [place] [address] 01027- 3651 Mar, [facility] [id number] [place] [address] 13936- 8298 Mar, [facility] [id number] [place] [address] 63007- 4505 Mar, [facility] [id number] [place] [address] 54922- 3954 Mar, Hyperlipidemia E78.5 ; Type 2 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 ; Major depressive disorder, recurrent episode, moderate F33.1 and Chronic pain syndrome G89.4 [facility] [address] [place] [id number] [place] [address] 13249- 7353 Mar, [facility] [id number] [place] [address] 39351- 7577 Mar, [facility] [id number] [place] [address] 31613- 4558 Mar, [facility] [address] [id number] [place] [address] 93613- 1375 Mar, [facility] [address] [place] [address] 54616- 3048 Feb, COPD (chronic obstructive pulmonary disease) J44.9 and Back pain M54.9 [facility] [address] [address]- 8215 Feb, [facility] [id number] [place] [address] 11102- 1972 Feb, [facility] [address] [address]- 8275 Feb, [facility] [id number] [place] [address] 69902- 4779 Feb, [facility] [address] [address]- 6470 Feb, [facility] [id number] [place] [address] 32837- 0187 Feb, [facility] [id number] [place] [address] 99552- 5160 Feb, [facility] [id number] [place] [address] 43853- 9428 Feb, [facility] [id number] [place] [address] 67879- 0779 Feb, Diabetes E11.9 ; Back pain M54.9 and COPD (chronic obstructive pulmonary disease) J44.9 [facility] [address] [place] [address] 07956- 9883 Jan, [facility] [id number] [place] [address] 54731- 0934 Jan, Major depression, recurrent F33.9 and Generalized anxiety disorder F41.1 [facility] [address] [place] [address] 57591- 9494 Jan, Chronic pain G89.29 [facility] [address] [address]- 3089 Jan, [facility] [id number] [place] [address] 38143- 0907 Jan, [facility] [address] [place] [address] 95858- 6700 Jan, [facility] [address] [address]- 5831 Jan, [facility] [id number] [place] [address] 37205- 0530 Jan, Nicotine dependence F17.200 [facility] [address] 16887- 2373 Jan, Nicotine dependence F17.200 and Back pain M54.9 [facility] [id number] [place] [address] 85159- 4250 Jan, [facility] [id number] [place] [address] 70124- 1401 28 Dec, 2014 [facility] [id number] [place] [address] 82067- 9288 25 Dec, 2014 Anxiety, generalized 300.02 and Major depression, recurrent 296.30 [facility] [id number] [place] [address] 30568- 7613 24 Dec, 2014 [facility] [id number] [place] [address] 57461- 6521 21 Dec, 2014 [facility] [id number] [place] [address] 36761- 2271 17 Dec, 2014 [facility] [id number] [place] [address] 02747- 7344 15 Dec, 2014 [facility] [id number] [place] [address] 98194- 6733 14 Dec, 2014 [facility] [id number] [place] [address] 56951- 8822 11 Dec, 2014 [facility] [id number] [place] [address] 66235- 9653 10 Dec, 2014 [facility] [id number] [place] [address] 51524- 5122 08 Dec, 2014 Skin tear 879.8 [facility] [address] [place] [address] 62215- 8662 08 Dec, 2014 Routine gynecological examination V72.31 ; Breast cancer screening V76.10 and Family history of breast cancer in first degree relative V16.3 [facility] [address] [address]- 9727 Dec, [facility] [address] [place] [address] 37314- 7320 Dec, [facility] [address] [address]- 6555 Nov, [facility] [id number] [place] [address] 63655- 6112 Nov, [facility] [address] [place] [address] 29247- 6315 Nov, Poor balance 781.99 and Vascular dementia, uncomplicated 290.40 [facility] [id number] [place] [address] 61341- 4052 Nov, [facility] [id number] [place] [address] 21978- 6582 Nov, Major depression, recurrent 296.30 and Anxiety, generalized 300.02 [facility] [address] [id number] [place] [address] 03209- 2378 Nov, [facility] [address] [id number] [place] [address] 29088- 2031 Nov, [facility] [address] [address]- 5685 Nov, [facility] [address] [place] [address] 25319- 5903 Nov, [facility] [address] [address]- 0196 Nov, Vascular dementia, uncomplicated 290.40 and Lumbago 724.2 [facility] [address] [address]- 1757 Nov, [facility] [address] [place] [address] 86142- 8609 Nov, [facility] [address] [address]- 0876 Nov, [facility] [address] [address]- 5549 Oct, [facility] [address] [address]- 2858 Oct, [facility] [id number] [place] [address] 92123- 1594 Oct, [facility] [address] [address]- 7554 Oct, COPD (chronic obstructive pulmonary disease) 496 and Hyperlipidemia 272.4 [facility] [address] [address]- 7393 Oct, Major depression, recurrent 296.30 and Anxiety, generalized 300.02 [facility] [id number] [address]- 8267 Oct, [facility] [address] [address]- 5638 Oct, [facility] [address] [address]- 1282 Oct, [facility] [address] [address]- 7971 Sep, Lumbago 724.2 and Anxiety state, unspecified 300.00 [facility] [address] [address]- 6626 Sep, [facility] [address] [address]- 1915 Sep, [facility] [address] [address]- 2458 August, [facility] [id number] [address]- 4164 August, Major depression, recurrent 296.30 ; Anxiety, generalized 300.02 and No condition on [place] II V71.09 [facility] [id number] [address]- 0455 August, [facility] [address] [facility] [id number] [place] 4796 August, [facility] [address] [address]- 5087 Jul, [facility] [address] [facility] [id number] [place] [address]- 1230 Jul, [facility] [address] [address]- 5765 Jul, [facility] [id number] [address]- [address] Jun, [facility] [address] [place] [address]- [address] Jun, [facility] [id number] [address]- 8809 Jun, [facility] [address] [place] [address]- [address] Jun, [facility] [id number] [address]- [address] Jun, [facility] [address] [address]- [address] Jun, [facility] [id number] [address]- 1081 23 Jun, 2014 [facility] [id number] 8612 17 Jun, 2014 [facility] [address] [facility] [id number] [place] [address] Jun, [facility] [id number] 2412 Jun, [facility] [place] [facility] [address] [id number] [place] [address]- 8026 10 Jun, 2014 [facility] [place] [facility] [address] [id number] [place] [address]- 0191 10 Jun, 2014 [facility] [place] [facility] [address] [id number] [place] [address]- 1011 07 Jun, 2014 [facility] [place] [facility] [address] [id number] [place] [address]- 8322 07 Jun, 2014 [facility] [place] [facility] [address] [id number] [place] [address]- 0433 Jun, [facility] [place] [facility] [address] [id number] [place] [address]- 9345 Jun, 2014 [facility] [place] [facility] [address] [id number] [place] [address]- 0002 May, [facility] [place] [facility] [address] [id number] [place] [address]- 5356 May, 2014 [facility] [place] [facility] [address] [id number] [place] [address] May, [facility] [place] [facility] [address] [facility] [id number] [place] [address] May, 2014 [facility] [place] [facility] [address] [facility] [id number] [place] [address] May, 2014 [facility] [place] [facility] [address] [id number] [place] [address] May, 2014 [facility] [place] [facility] [address] [id number] [place] [address] May, 2014 [facility] [place] [facility] [address] [id number] [place] [address] 12 May, 2014 [facility] [place] [facility] [address] [facility] [id number] [place] [address] May, 2014 [facility] [place] [facility] [address] [facility] [id number] [place] [address] May, 2014 [facility] [place] [facility] [address] [id number] [place] [address] May, 2014 [facility] [place] [facility] [address] [id number] [place] [address]- [address] May, 2014 [facility] [place] [facility] [address] [id number] [place] [address] May, 2014 [facility] [place] [facility] [address] [id number] [place] [address] May, [facility] [place] [facility] [address] [id number] [place] [address] Apr, [facility] [place] [facility] [address] [id number] [place] [address] Apr, [facility] [place] [facility] [address] [id number] [place] [address]- [address] Apr, [facility] [place] [facility] [address] [id number] [place] [address] Apr, [facility] [place] [facility] [address] [id number] [place] [address]- [address] Apr, [facility] [place] [facility] [address] [id number] [place] [address] Apr, [facility] [place] [facility] [address] [id number] [place] [address]- [address] Apr, [facility] [place] [facility] [address] [id number] [place] [address]- [address] Apr, [facility] [place] [facility] [address] [id number] [place] [address]- [address] Apr, [facility] [place] [facility] [address] [id number] [place] [address] Apr, [facility] [place] [facility] [address] [id number] [place] [address]- [address] Apr, [facility] [place] [facility] [address] [id number] [place] [address] Apr, [facility] [place] [facility] [address] [id number] [place] [address] Mar, [facility] [place] [facility] [address] [id number] [place] [address]- [address] 31 Mar, 2014 [facility] [place] [facility] [address] [id number] [place] [address] 30 Mar, 2014 [facility] [place] [facility] [address] [id number] [place] [address] 30 Mar, 2014 [facility] [place] [facility] [address] [id number] [place] [address]- [address] Mar, [facility] [place] [facility] [address] [id number] [place] [address]- [address] Mar, [facility] [place] [facility] [address] [id number] [place] [address] Mar, [facility] [place] [facility] [address] [id number] [place] [address] 19 Mar, 2014 [facility] [place] [facility] [address] [id number] [place] [address]- [address] 15 Mar, 2014 [facility] [place] [facility] [address] [id number] [place] [address]- [address] 15 Mar, 2014 [facility] [place] [facility] [address] [id number] [place] [address]- [address] 15 Mar, 2014 [facility] [place] [facility] [address] [id number] [place] [address]- [address] 15 Mar, 2014 [facility] [place] [facility] [address] [id number] [place] [address]- [address] 15 Mar, 2014 [facility] [place] [facility] [address] [id number] [place] [address]- [address] 15 Mar, 2014 [facility] [place] [facility] [address] [id number] [place] [address]- [address] Mar, [facility] [place] [facility] [address] [id number] [place] [address] Mar, [facility] [place] [facility] [address] [id number] [place] [address]- [address] Mar, [facility] [place] [facility] [address] [id number] [place] [address] Mar, [facility] [place] [facility] [address] [address] [id number] [place] [address] Mar, [facility] [place] [facility] [address] [id number] [place] [address] 0[address] Mar, [facility] [place] [facility] [address] [id number] [place] [address] 8956 Feb, [facility] [place] [facility] [address] [id number] [place] [address]- 8189 Feb, [facility] [place] [facility] [address] [id number] [place] [address]- 9063 Feb, [facility] [place] [facility] [address] [id number] [place] [address]- 1791 Feb, [facility] [place] [facility] [address] [id number] [place] [address] 5213 Feb, [facility] [place] [facility] [address] [id number] [place] [address]- 8733 Feb, [facility] [place] [facility] [address] [id number] [address] 7[address] Feb, [facility] [place] [facility] [address] [id number] [place] [address]- 3492 Feb, [facility] [place] [facility] [address] [id number] [place] [address]- 4332 Feb, [facility] [place] [facility] [address] [id number] [address]- 1775 Feb, [facility] [place] [facility] [address] [id number] [place] [address]- 5775 Feb, [facility] [place] [facility] [address] [id number] [place] [address] Feb, [facility] [place] [facility] [address] [id number] [place] [address] Feb, [facility] [place] [facility] [address] [id number] [place] [address]- 9492 Feb, [facility] [place] [facility] [address] [id number] [place] [address]- 7495 Feb, [facility] [place] [facility] [address] [id number] [place] [address]- 4198 Feb, [facility] [place] [facility] [address] [id number] [place] [address]- 6239 Feb, [facility] [place] [facility] [address] [id number] [place] [address]- 4055 Jan, [facility] [place] [facility] [address] [id number] [place] [address]- 3897 Jan, [facility] [place] [facility] [address] [id number] [place] [address]- 9602 Jan, [facility] [place] [facility] [address] [id number] [place] [address]- 5366 Jan, [facility] [place] [facility] [address] [id number] [place] [address]- 4706 Jan, [facility] [place] [facility] [address] [id number] [place] [address]- 1946 Jan, [facility] [place] [facility] [address] [id number] [place] [address]- 9945 16 Jan, 2014 [facility] [place] [facility] [address] [id number] [place] [address] 16 Jan, 2014 [facility] [place] [facility] [address] [id number] [place] [address]- 1321 Jan, [facility] [place] [facility] [address] [id number] [place] [address]- 2585 Jan, [facility] [place] [facility] [address] [id number] [place] [address]- 7732 Jan, [facility] [place] [facility] [address] [id number] [place] [address]- 3125 Dec, [facility] [place] [facility] [address] [id number] [place] [address]- 3956 Dec, [facility] [place] [facility] [address] [id number] [place] [address]- 9140 Nov, [facility] [place] [facility] [address] [id number] [place] [address]- 6050 Nov, [facility] [place] [facility] [address] [id number] [place] [address]- 0702 Nov, [facility] [place] [facility] [address] [id number] [place] [address]- 4736 Nov, [facility] [place] [facility] [address] [id number] [place] [address]- 6147 Nov, [facility] [place] [facility] [address] [id number] [place] [address]- 4915 Nov, [facility] [place] [facility] [address] [id number] [address]- 0230 Nov, [facility] [place] [facility] [address] [id number] [address]- 1787 Oct, [facility] [place] [facility] [address] [id number] [place] [address]- 2790 Oct, [facility] [place] [facility] [address] [id number] [address]- 4406 Oct, [facility] [place] [facility] [address] [id number] [place] [address] Oct, [facility] [place] [facility] [address] [id number] [place] [address]- 7979 30 Sep, 2013 [facility] [place] [facility] [address] [id number] [place] [address]- 2388 Sep, [facility] [place] [facility] [address] [id number] [place] [address]- 7529 Sep, [facility] [place] [facility] [address] [id number] [place] [address]- 5873 Sep, [facility] [place] [facility] [address] [id number] [place] [address]- 7635 Sep, [facility] [place] [facility] [address] [id number] [place] [address]- 0424 Sep, [facility] [place] [facility] [address] [id number] [place] [address]- 1089 Sep, [facility] [place] [facility] [address] [id number] [place] [address]- 7276 Sep, [facility] [place] [facility] [address] [id number] [place] [address]- 8025 Sep, [facility] [place] [facility] [address] [id number] [place] [address]- 4777 Sep, [facility] [place] [facility] [address] [id number] [place] [address]- 1701 Sep, [facility] [place] [facility] [address] [id number] [place] [address]- 5563 Sep, [facility] [place] [facility] [address] [id number] [place] [address]- 1682 Sep, [facility] [place] [facility] [address] [id number] [place] [address]- 0810 Sep, [facility] [place] [facility] [address] [id number] [place] [address]- 0530 August, [facility] [place] [facility] [address] [id number] [place] [address]- 2201 August, [facility] [place] [facility] [address] [id number] [place] [address]- 8082 August, [facility] [address] [id number] [place] [address]- [address], [facility] [address] [id number] [place] [address]- [address] August, [facility] [address] [id number] [place] [address]- [address], [facility] [address] [id number] [place] [address]- [address], [facility] [address] [id number] [place] [address]- [address], [facility] [address] [id number] [place] [address]- [address], [facility] [address] [id number] [place] [address]- [address], [facility] [address] [id number] [place] [address]- [address] August, [facility] [address] [id number] [place] [address]- [address], [facility] [address] [id number] [place] [address]- [address], [facility] [address] [id number] [place] [address]- 1952 August, [facility] [place] [facility] [address] [id number] [place] [address]- 0925 August, [facility] [place] [facility] [address] [id number] [place] [address]- 0547 August, [facility] [place] [facility] [address] [id number] [place] [address]- 5408 August, [facility] [place] [facility] [address] [id number] [place] [address]- 2607 August, [facility] [place] [facility] [address] [id number] [place] [address]17 August, [facility] [place] [facility] [address] [id number] [place] [address]- 0862 Jul, [facility] [place] [facility] [address] [id number] [place] [address]- 3871 Jul, [facility] [place] [facility] [address] [id number] [place] [address]- 3089 Jul, [facility] [place] [facility] [address] [id number] [place] [address]- 3279 Jul, [facility] [place] [facility] [address] [id number] [place] [address]- 0220 Jun, [facility] [place] [facility] [address] [id number] [place] [address]- 4851 Jun, [facility] [place] [facility] [address] [id number] [place] [address]- 9537 Jun, [facility] [place] [facility] [address] [id number] [place] [address]- 7841 Jun, [facility] [place] [facility] [address] [id number] [place] [address]- 9429 Jun, [facility] [place] [facility] [address] [id number] [place] [address]- 7943 Jun, [facility] [place] [facility] [address] [id number] [place] [address]- 9810 Jun, [facility] [place] [facility] [address] [id number] [place] [address]- 9195 Jun, [facility] [place] [facility] [address] [id number] [place] [address]- 9726 Jun, [facility] [place] [facility] [address] [id number] [place] [address]- 4193 Jun, [facility] [place] [facility] [address] [id number] [place] [address]- 5266 May, [facility] [place] [facility] [address] [id number] [place] [address]- 2926 May, [facility] [place] [facility] [address] [id number] [place] [address]- 2506 May, [facility] [place] [facility] [address] [id number] [place] [address]- 6294 May, [facility] [place] [facility] [address] [id number] [place] [address]- 2542 May, [facility] [place] [facility] [address] [id number] [place] [address]- 7986 May, [facility] [place] [facility] [address] [facility] [id number] [place] [address]- 1294 May, [facility] [place] [facility] [address] [facility] [id number] [place] [address]- 6562 May, [facility] [place] [facility] [address] [id number] [place] [address]- 7330 May, [facility] [place] [facility] [address] [facility] [id number] [place] [address]- 2863 May, [facility] [place] [facility] [address] [facility] [id number] [place] [address]- 8166 18 May, 2013 [facility] [place] [facility] [address] [facility] [id number] [place] [address]- 6697 17 May, 2013 [facility] [place] [facility] [address] [facility] [id number] [place] [address]- 2546 May, [facility] [place] [facility] [address] [id number] [place] [address]- 3044 May, [facility] [place] [facility] [address] [facility] [id number] [place] [address]- 2786 10 May, 2013 [facility] [place] [facility] [address] [facility] [id number] [place] [address]- 5095 07 May, [address] [facility] [address] [id number] [place] [address]- 7354 07 May, 2013 [facility] [address] [id number] [place] [address]- 7611 17 Apr, [address] [facility] [address] [id number] [place] [address]- 9457 Apr, [facility] [address] [id number] [place] [address]- [address], [facility] [address] [id number] [place] [address]- [address], [facility] [address] [id number] [place] [address]- [address] Apr, [facility] [address] [id number] [place] [address]- [address], [facility] [address] [id number] [place] [address]- [address] Apr, [facility] [address] [id number] [place] [address]- 9666 Mar, [facility] [address] [id number] [place] [address]- 6569 Mar, [facility] [address] [id number] [place] [address]- [address] Mar, [facility] [address] [id number] [place] [address]- 8971 Mar, [facility] [address] [id number] [place] [address]- 3584 Mar, [facility] [address] [id number] [place] [address]- [address], [facility] [address] [id number] [place] [address]- 7980 Mar, [facility] [place] [facility] [address] [id number] [place] [address]- 1032 Mar, [facility] [place] [facility] [address] [id number] [place] [address]- 5884 Mar, [facility] [place] [facility] [address] [id number] [place] [address]- 6305 Mar, [facility] [place] [facility] [address] [id number] [place] [address]- 7957 Mar, [facility] [address] [id number] [place] [address]- 2582 Feb, [facility] [place] [facility] [address] [id number] [place] [address]- 2511 Feb, [facility] [address] [id number] [place] [address]- 5302 Feb, [facility] [address] [id number] [place] [address]- 5326 20 Feb, 2013 [facility] [place] [facility] [address] [id number] [place] [address]- 0671 Feb, [facility] [place] [facility] [address] [id number] [place] [address]- 3657 19 Feb, 2013 [facility] [place] [facility] [address] [id number] [place] [address]- 6141 15 Feb, 2013 [facility] [place] [facility] [address] [id number] [address]- 2302 14 Feb, 2013 [facility] [place] [facility] [address] [id number] [place] [address]- 8588 14 Feb, 2013 [facility] [place] [facility] [address] [id number] [address]- 2226 13 Feb, 2013 [facility] [place] [facility] [address] [id number] [address]- 9510 13 Feb, 2013 [facility] [place] [facility] [address] [id number] [address]- 0976 Feb, [facility] [place] [facility] [address] [id number] [place] [address]- 3418 Feb, [facility] [place] [facility] [address] [id number] [place] [address]- 8517 Feb, [facility] [place] [facility] [address] [id number] [place] [address]- 1379 Feb, [facility] [place] [facility] [address] [id number] [place] [address]- 7623 Feb, [facility] [place] [facility] [address] [id number] [place] [address]- 2832 Jan, [facility] [place] [facility] [address] [id number] [place] [address]- 1584 Jan, [facility] [place] [facility] [address] [id number] [place] [address]- 8596 Jan, [facility] [place] [facility] [address] [id number] [place] [address]- 1327 Jan, [facility] [place] [facility] [address] [id number] [place] [address]- 9418 Jan, [facility] [place] [facility] [address] [id number] [place] [address]- 0683 Jan, [facility] [place] [facility] [address] [id number] [address]- 4488 Jan, [facility] [place] [facility] [address] [id number] [address]- 3599 Jan, [facility] [place] [facility] [address] [id number] [place] [address]- 3959 10 Jan, 2013 [facility] [place] [facility] [address] [id number] [place] [address]- 2416 27 Dec, 2012 [facility] [place] [facility] [address] [id number] [place] [address]- 9365 20 Dec, 2012 [facility] [place] [facility] [address] [id number] [place] [address]- 0516 19 Dec, 2012 [facility] [place] [facility] [address] [id number] [place] [address]- 4887 10 Dec, 2012 [facility] [place] [facility] [address] [id number] [place] [address]- 6226 04 Dec, 2012 [facility] [place] [facility] [address] [id number] [place] [address]- 4315 03 Dec, 2012 [facility] [place] [facility] [address] [id number] [place] [address]- 0595 Nov, [facility] [place] [facility] [address] [id number] [place] [address]- 9305 Nov, [facility] [place] [facility] [address] [id number] [place] [address]- 4764 Nov, [facility] [place] [facility] [address] [id number] [place] [address]- 9962 Nov, [facility] [place] [facility] [address] [id number] [place] [address]- 1762 Nov, [facility] [place] [facility] [address] [id number] [place] [address]- 7446 Nov, [facility] [place] [facility] [address] [id number] [place] [address]- 7766 Nov, [facility] [place] [facility] [address] [id number] [place] [address]- 3193 Nov, [facility] [place] [facility] [address] [id number] [place] [address]- 2544 14 Nov, 2012 [facility] [place] [facility] [address] [id number] [place] [address]- 5598 Nov, [facility] [place] [facility] [address] [id number] [place] [address]- 2546 Oct, [facility] [place] [facility] [address] [id number] [place] [address]- 4485 Oct, [facility] [place] [facility] [address] [id number] [place] [address]- 8474 Oct, [facility] [place] [facility] [address] [id number] [place] [address]- 7607 Oct, [facility] [place] [facility] [address] [id number] [place] [address]- 9065 Oct, [facility] [place] [facility] [address] [id number] [place] [address]- 2988 Oct, [facility] [place] [facility] [address] [id number] [place] [address]- 9925 Oct, [facility] [place] [facility] [address] [id number] [place] [address]- 9518 Oct, [facility] [place] [facility] [address] [id number] [place] [address]- 4032 Sep, [facility] [place] [facility] [address] [id number] [place] [address]- 4656 Sep, [facility] [place] [facility] [address] [id number] [place] [address]- 3194 Sep, [facility] [place] [facility] [address] [id number] [place] [address]- 7905 Sep, [facility] [place] [facility] [address] [id number] [place] [address]- 5897 Sep, [facility] [place] [facility] [address] [id number] [address]- 2150 Sep, [facility] [place] [facility] [address] [id number] [place] [address]- 4673 Sep, [facility] [place] [facility] [address] [id number] [place] [address]- 3588 Sep, [facility] [place] [facility] [address] [id number] [place] [address]- 6609 August, [facility] [place] [facility] [address] [id number] [place] [address] August, [facility] [address] [id number] [place] [address] August, [facility] [address] [id number] [place] [address] August, [facility] [address] [id number] [place] [address] August, [facility] [address] [id number] [place] [address] Jul, [facility] [address] [id number] [place] [address] Jul, [facility] [address] [id number] [place] [address] Jul, [facility] [address] [id number] [place] [address] Jul, [facility] [address] [id number] [place] [address] Jul, [facility] [address] [id number] [place] [address] 18 Jun, 2012 [facility] [address] [id number] [place] [address] 18 Jun, 2012 [facility] [address] [id number] [place] [address] 15 Jun, 2012 [facility] [address] [id number] [place] [address]- [address] 14 Jun, 2012 [facility] [place] [facility] [address] [id number] [place] [address]- [address] 12 Jun, 2012 [facility] [place] [facility] [address] [id number] [place] [address]- [address]78 08 Jun, 2012 [facility] [address] [id number] [place] [address] 08 Jun, 2012 [facility] [place] [address] [id number] [place] [address] Jun, [facility] [address] [id number] [place] [address] Jun, [facility] [address] [id number] [place] [address] May, [facility] [place] [address] [id number] [place] [address] May, [facility] [address] [id number] [place] [address]- [address] May, [facility] [address] [id number] [place] [address] 9396 May, [facility] [place] [address] [id number] [place] [address] Apr, [facility] [place] [address] [id number] [place] [address] 16[address] Apr, [facility] [address] [id number] [place] [address] Apr, [facility] [address] [id number] [place] [address] Apr, [facility] [place] [address] [id number] [place] [address] Apr, [facility] [place] [address] [id number] [place] [address]- [address] Apr, [facility] [place] [address] [id number] [place] [address] 37[address] Apr, [facility] [place] [address] [id number] [place] [address] Mar, [facility] [address] [place] [id number] Mar, [facility] [place] [address] [id number] [place] [address]406 Mar, [facility] [place] [facility] [address] [id number] [place] [address]69 Mar, [facility] [place] [facility] [address] [id number] [place] [address] 8636 Mar, [facility] [place] [facility] [address] [id number] [place] [address]- [address] Mar, [facility] [place] [facility] [address] [id number] [place] [address] 1506 Mar, [facility] [place] [facility] [address] [id number] [place] [address]- [address] Mar, [facility] [place] [facility] [address] [id number] [place] [address]- 4846 Mar, [facility] [place] [facility] [address] [id number] [place] [address]- 9233 Mar, [facility] [place] [facility] [address] [id number] [place] [address]- 1768 Mar, [facility] [place] [facility] [address] [id number] [place] [address]- 117[address] Mar, [facility] [place] [facility] [address] [id number] [place] [address]- [address] Mar, [facility] [place] [facility] [address] [id number] [place] [address]- 1727 Mar, [facility] [place] [facility] [address] [id number] [address] Mar, [facility] [place] [facility] [address] [id number] [place] [address]- 7613 Mar, [facility] [place] [facility] [address] [id number] [place] [address]- 0863 Mar, [facility] [place] [facility] [address] [id number] [place] [address]- 9711 Feb, [facility] [place] [facility] [address] [id number] [place] [address]- [address]99 Feb, [facility] [place] [facility] [address] [id number] [place] [address]- 9565 Feb, [facility] [place] [facility] [address] [id number] [place] [address]- [address]136 Feb, [facility] [place] [facility] [address] [id number] [place] [address]- 7469 Feb, [facility] [place] [facility] [address] [id number] [place] [address]- [address] Feb, [facility] [place] [facility] [address] [id number] [place] [address]- 7224 Feb, [facility] [place] [facility] [address] [id number] [place] [address]- [address] Feb, [facility] [place] [facility] [address] [id number] [place] [address]- 1674 Feb, [facility] [place] [facility] [address] [id number] [place] [address]- 6689 Feb, [facility] [place] [facility] [address] [id number] [place] [address]- 8401 Feb, [facility] [place] [facility] [address] [id number] [place] [address]- 2872 Feb, [facility] [place] [facility] [address] [id number] [place] [address]- 9539 Feb, [facility] [place] [facility] [address] [id number] [address]- 150[address] Feb, [facility] [place] [facility] [address] [id number] [place] [address]- 1259 Feb, [facility] [place] [facility] [address] [id number] [place] [address]- 3842 Feb, [facility] [place] [facility] [address] [id number] [place] [address]- 1409 Jan, [facility] [place] [facility] [address] [id number] [place] [address]- 74[address] Jan, [facility] [place] [facility] [address] [id number] [place] [address]- 9764 Jan, [facility] [place] [facility] [address] [id number] [place] [address]- 9911 Jan, [facility] [place] [facility] [address] [id number] [place] [address]- 7897 Jan, [facility] [place] [facility] [address] [id number] [place] [address]- 3792 Jan, [facility] [place] [facility] [address] [id number] [place] [address]- 9780 Jan, [facility] [place] [facility] [address] [id number] [place] [address]- 4607 Jan, [facility] [place] [facility] [address] [id number] [place] [address] Jan, [facility] [place] [facility] [address] [id number] [place] [address] Jan, [facility] [place] [facility] [address] [id number] [place] [address] Jan, [facility] [place] [facility] [address] [id number] [place] [address] Jan, [facility] [place] [facility] [address] [id number] [address] Jan, [facility] [place] [facility] [address] [id number] [place] [address]- 62[address] Jan, [facility] [place] [facility] [address] [id number] [place] [address]- 5[address] Jan, [facility] [place] [facility] [address] [id number] [place] [address]- 2037 Jan, [facility] [place] [facility] [address] [id number] [address] 04 Jan, 2012 [facility] [place] [facility] [address] [id number] [place] [address]- 0[address] 21 Dec, 2011 [facility] [place] [facility] [address] [id number] [place] [address]- 5186 20 Dec, 2011 [facility] [place] [facility] [address] [id number] [place] [address] 2546 18 Dec, 2011 [facility] [place] [facility] [address] [id number] [place] [address] 2546 18 Dec, 2011 [facility] [place] [facility] [address] [id number] [place] [address] 2546 10 Dec, 2011 [facility] [place] [facility] [address] [id number] [place] [address]- 3676 10 Dec, 2011 [facility] [place] [facility] [address] [id number] [place] [address]- 0880 10 Dec, 2011 [facility] [place] [facility] [address] [id number] [place] [address]- 4050 07 Dec, 2011 [facility] [place] [facility] [address] [id number] [place] [address]- 8692 30 Nov, 2011 [facility] [place] [facility] [address] [id number] [place] [address]- 0177 Nov, [facility] [place] [facility] [address] [id number] [place] [address]- 2912 Nov, [facility] [place] [facility] [address] [id number] [place] [address]- 2544 Nov, [facility] [place] [facility] [address] [id number] [place] [address] 2546 Nov, [facility] [place] [facility] [address] [id number] [place] [address]- 4796 Nov, [facility] [place] [facility] [address] [id number] [place] [address]- 2548 30 Oct, 2011 [facility] [place] [facility] [address] [id number] [place] [address]- 9146 30 Oct, 2011 [facility] [address] [id number] [place] [address]- 1699 Oct, [facility] [place] [facility] [address] [id number] [place] [address]- 9636 Oct, [facility] [address] [id number] [place] [address]- 7947 Oct, [facility] [place] [facility] [address] [id number] [place] [address]- 5061 Oct, [facility] [address] [id number] [place] [address]- 4217 Oct, [facility] [place] [facility] [address] [id number] [place] [address]- 4114 Sep, [facility] [place] [facility] [address] [id number] [place] [address]- 7579 Sep, [facility] [place] [facility] [address] [id number] [place] [address]- 8150 Sep, [facility] [place] [facility] [address] [id number] [place] [address]- 7943 Sep, [facility] [address] [id number] [place] [address]- 9508 Sep, [facility] [place] [facility] [address] [id number] [place] [address]- 2541 15 Sep, 2011 [facility] [place] [facility] [address] [id number] [place] [address]- 5127 14 Sep, 2011 [facility] [place] [facility] [address] [id number] [place] [address]- 9507 11 Sep, 2011 [facility] [place] [facility] [address] [id number] [place] [address]- 6746 05 Sep, 2011 [facility] [place] [facility] [address] [id number] [place] [address]- 3468 Sep, [facility] [address] [id number] [place] [address]- 0832 August, [facility] [place] [facility] [address] [id number] [place] [address]- 3296 August, [facility] [place] [facility] [address] [id number] [place] [address]- 2745 August, [facility] [place] [facility] [address] [id number] [place] [address]- 4736 August, [facility] [address] [id number] [place] [address]- 0776 August, [facility] [place] [facility] [address] [id number] [place] [address]- 3652 Jul, [facility] [place] [facility] [address] [id number] [place] [address]- 9666 Jul, [facility] [address] [id number] [place] [address]- 6170 Jul, [facility] [place] [facility] [address] [id number] [place] [address]- 0031 Jul, [facility] [place] [facility] [address] [id number] [place] [address]- 0206 Jul, [facility] [place] [facility] [address] [id number] [place] [address]- 3134 Jul, [facility] [place] [facility] [address] [id number] [address] 34[address] Jul, [facility] [place] [facility] [address] [id number] [place] [address]- 4171 Jun, [facility] [place] [facility] [address] [id number] [place] [address]- 9873 Jun, [facility] [place] [facility] [address] [id number] [place] [address]- 3631 Jun, [facility] [place] [facility] [address] [id number] [address]- 1540 Jun, [facility] [place] [facility] [address] [id number] [place] [address]- 0434 Jun, [facility] [place] [facility] [address] [id number] [place] [address]- 1516 May, [facility] [place] [facility] [address] [id number] [place] [address]- 8396 May, [facility] [place] [facility] [address] [id number] [place] [address]- 3064 May, [facility] [place] [facility] [address] [id number] [place] [address]- 7586 May, [facility] [place] [facility] [address] [id number] [place] [address]- 6814 May, [facility] [place] [facility] [address] [facility] [id number] [place] [address]- 4899 May, [facility] [place] [facility] [address] [id number] [place] [address]- 9700 Apr, [facility] [place] [facility] [address] [facility] [id number] [place] [address]- 3971 Mar, [facility] [place] [facility] [address] [facility] [id number] [place] [address]- 4721 Feb, [facility] [place] [facility] [address] [id number] [place] [address] 2544 Feb, [facility] [place] [facility] [address] [id number] [place] [address]- 2548 Feb, [facility] [place] [facility] [address] [id number] [place] [address]- 0469 Feb, [facility] [place] [facility] [address] [facility] [id number] [place] [address]- 0144 Jan, [facility] [place] [facility] [address] [id number] [place] [address]- 1653 Jan, [facility] [place] [facility] [address] [id number] [place] [address]- 0428 26 Jan, 2011 [facility] [address] [id number] [place] [address]46 24 Jan, 2011 [facility] [address] [id number] [place] [address]- 9704 14 Jan, 2011 [facility] [address] [id number] [place] [address]- 8915 19 Dec, 2010 [facility] [address] [id number] [place] [address]- 0173 Oct, [facility] [address] [id number] [place] [address]- 3724 August, [facility] [address] [id number] [place] [address]- 5028 29 Mar, 2010 [facility] [address] [id number] [place] [address]- 2891 27 Mar, 2010 [facility] [address] [id number] [place] [address]- 7543 16 Mar, 2010 [facility] [address] [id number] [place] [address]- 6736 15 Mar, [address] [facility] [address] [id number] [place] [address]- 5319 15 Mar, 2010 [facility] [place] [facility] [address] [id number] [place] [address]- 9783 08 Mar, 2010 [facility] [place] [facility] [address] [id number] [place] [address]- 0803 03 Mar, 2010 [facility] [place] [facility] [address] [id number] [place] [address]- 2385 24 Feb, 2010 [facility] [place] [facility] [address] [id number] [place] [address]- 0137 24 Feb, 2010 [facility] [place] [facility] [address] [id number] [address]- 1106 15 Feb, 2010 [facility] [place] [facility] [address] [id number] [place] [address]- 4552 19 Jan, 2010 [facility] [place] [facility] [address] [id number] [place] [address]- 9063 Jan, [facility] [place] [facility] [address] [id number] [place] [address]- 2568 Jan, [facility] [place] [facility] [address] [id number] [place] [address]- 5310 Nov, [facility] [place] [facility] [address] [id number] [place] [address]- 5919 Sep, [facility] [place] [facility] [address] [id number] [address]- 0466 August, [facility] [place] [facility] [address] [id number] [place] [address]- 2365 30 Mar, 2009 [facility] [place] [facility] [address] [id number] [place] [address]- 0122 Mar, [facility] [place] [facility] [address] [id number] [place] [address]- 8067 17 Feb, 2009 [facility] [place] [facility] [address] [id number] [place] [address]- 0042 Feb, [facility] [place] [facility] [address] [id number] [address]- 2396 10 Feb, 2009 [facility] [place] [facility] [address] [id number] [place] [address]- 4649 10 Feb, 2009 [facility] [place] [facility] [address] [id number] [place] [address]- 0099 06 Feb, 2009 [facility] [place] [facility] [address] [id number] [place] [address]- 6091 27 Jan, 2009 [facility] [place] [facility] [address] [id number] [place] [address]- 2535 Jan, [facility] [place] [facility] [address] [id number] [place] [address]- 8270 Jan, [facility] [address] [id number] [place] [address]- 5529 Jan, [facility] [id number] [place] [address]- 4910 Nov, [facility] [id number] [place] [address]- 1151 Sep, [facility] [id number] [place] [address]- 4747 August, [facility] [id number] [place] [address]- 0678 Jul, [facility] [id number] [place] [address]- 0103 May, IMMUNIZATIONS No Known Immunizations SOCIAL HISTORY Never Assessed REASON FOR VISIT CCM note ([employer]) PLAN OF CARE VITAL SIGNS MEDICATIONS Unknown [...] Knee Surgery 07/16/17 Hospitalization History [facility] [place]- left hand/wrist swelling 10/09/2017
--- OUTSIDE RECORDS SUMMARY | 2018-01-01 11:56 | XMS REPORT ---
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 Name Role Phone PATRICK GALAVIZ Unavailable PROBLEMS Type Condition ICD9-CM Code CJX68-OP Code Onset Dates Condition Status SNOMED Code Problem History of common bile duct surgery Z98.89 Active 032600965 Problem Barretts esophagus K22.70 Active 575863950 Problem 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 Active 04975495 Problem Colon polyp K63.5 Active 90485198 Problem Bilateral low back pain without sciatica M54.5 Active 063173568 Problem Screening breast examination Z12.39 Active 931910711 Problem Postmenopausal Z78.0 Active 39424109 Problem Osteopenia M85.80 Active 695371037 Problem Cigarette nicotine dependence without complication F17.210 Active 00686122 Problem Type 2 diabetes mellitus with diabetic peripheral angiopathy without gangrene E11.51 Active 991787728 Problem Vascular dementia without behavioral disturbance F01.50 Active [id number] Problem Unspecified atherosclerosis of [place] arteries of extremities, unspecified extremity I70.209 Active 928974112611779 Problem Arthritis M19.90 Active 4185258 Problem Chronic atrial fibrillation I48.2 Active 183915626 Problem Chronic obstructive pulmonary disease with acute lower respiratory infection J44.0 Active 971565594 Problem Other chronic pancreatitis K86.1 Active 725223137 Problem Stress incontinence of urine N39.3 Active 96022393 Problem Controlled type 2 diabetes mellitus without complication, without long -term current use of insulin E11.9 Active 741397445 Problem Unspecified psychosis F29 Active 45238446 Problem Xeroderma Q80.9 Active 51173584 Problem COPD (chronic obstructive pulmonary disease) J44.9 Active 11846400 Problem Dementia without behavioral disturbance, unspecified dementia type F03.90 Active 87873039 Problem Gastroparesis K31.84 Active 368210543 Problem Type 2 diabetes mellitus with diabetic neuropathy, without long-term current use of insulin E11.40 Active 16242232 Problem Osteoporosis M81.0 Active 13323675 Problem Atherosclerosis of [place] artery of both lower extremities with intermittent claudication I70.213 Active 947917023968135 Problem Hyperlipidemia E78.5 Active 49999625 Problem Diabetic polyneuropathy associated with type 2 diabetes mellitus E11.42 Active 66606047 Problem Essential tremor G25.0 Active 04277018 Problem 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.118 Active 9584569444479 Problem Generalized anxiety disorder F41.1 Active 213198493 Problem Gastroesophageal reflux disease, esophagitis presence not specified K21.9 Active 628183098 Problem Coronary artery disease involving e[place] coronary artery of [place] 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 I25.118 Active 2639334549936 Problem Postconcussion syndrome F07.81 Active 19024092 Problem Chronic pain syndrome G89.4 Active 614694775 Problem Migraine without aura and without status migrainosus, not intractable G43.009 Active 605522077 Problem Paroxysmal atrial fibrillation I48.0 Active 769392353 Problem Migraine without aura and with status migrainosus, not intractable G43.001 Active 908544617 Problem Cervicalgia M54.2 Active 5730838625384 Problem Acute exacerbation of chronic obstructive pulmonary disease (COPD) J44.1 Active 770638540 Problem Major depressive disorder, recurrent episode, moderate F33.1 Active 713398570 Problem Crohn''s disease without complication, unspecified gastrointestinal tract location K50.90 Active 92252602 Problem Chronic fatigue R53.82 Active 89886525 Problem Bipolar affective disorder, currently depressed, moderate F31.32 Active 358352288 ALLERGIES No Information ENCOUNTERS Encounter Location Date Diagnosis [facility] [address] [facility] [id number] [address] Nov, [facility] [id number] [address] Nov, [facility] [id number] [address] Oct, [facility] [id number] [address] Oct, Bipolar affective disorder, currently depressed, moderate F31.32 ; Vascular dementia without behavioral disturbance F01.50 and Generalized anxiety disorder F41.1 [facility] [id number] [address] Oct, [facility] [address] [address] Oct, [facility] [id number] [place] [address] 51853- 8694 Oct, Edema of both legs R60.0 [facility] [id number] [place] [address] 73880- 7647 Oct, [facility] [id number] [place] [address] 76503- 5567 Sep, [facility] [id number] [place] [address] 32098- 9330 Sep, [facility] [id number] [place] [address] 59097- 1434 Sep, [facility] [address] [place] [address] 85332- 2476 Sep, Encounter for well woman exam with routine gynecological exam Z01.419 ; Screening for STDs (sexually transmitted diseases) Z11.3 ; Screening breast examination Z12.31 and Overweight (BMI 25.0-29.9) E66.3 [facility] [address] [address] Sep, [facility] [address] [address] 9185 Sep, [facility] [id number] [address] 5038 Sep, [facility] [address] [address] 7602 August, [facility] [address] [place] [address] 22637- 1640 August, [facility] [id number] [place] [address] 25094- 2954 August, Type 2 diabetes mellitus with diabetic neuropathy, without long-term current use of insulin E11.40 and Sprain of right ankle, unspecified ligament, initial encounter S93.401A [facility] [id number] [place] [address] 37073- 1641 August, [facility] [id number] [place] [address] 34858- 3732 August, [facility] [id number] [place] [address] 16595- 9856 August, [facility] [id number] [place] [address] 78434- 8232 August, Gastroesophageal reflux disease, esophagitis presence not specified K21.9 [facility] [id number] [place] [address] 87587- 0576 August, [facility] [id number] [place] [address] 05643- 5227 August, [facility] [id number] [place] [address] 59002- 3945 August, [facility] [id number] [place] [address] 33410- 3912 August, Type 2 diabetes mellitus with diabetic neuropathy, without long-term current use of insulin E11.40 and Elevated liver enzymes R74.8 [facility] [id number] [place] [address] 62291- 9249 Jul, [facility] [id number] [place] [address] 54300- 1533 Jul, Cough R05 [facility] [id number] [place] [address] 25950- 7111 Jul, [facility] [id number] [place] [address] 10679- 7744 Jul, [facility] [id number] [place] [address] 99278- 2446 Jul, Bipolar affective disorder, currently depressed, moderate F31.32 ; Vascular dementia without behavioral disturbance F01.50 and Generalized anxiety disorder F41.1 [facility] [id number] [place] [address] 84272- 8775 Jul, [facility] [address] 40536- 0442 Jul, Type 2 diabetes mellitus with diabetic neuropathy, without long-term current use of insulin E11.40 and Elevated liver enzymes R74.8 [place] [address] 14630- 6471 Jul, [facility] [id number] [place] [address] 55704- 9176 Jul, [facility] [address] 57072- 5432 Jul, [facility] [id number] [place] [address] 16343- 8412 Jul, Post-menopausal Z78.0 [facility] [address] 56641- 9396 Jul, Stress incontinence of urine N39.3 [facility] [id number] [place] [address] 10483- 3305 Jul, [facility] [id number] [place] [address] 25030- 3919 Jul, [facility] [id number] [place] [address] 12630- 0113 Jul, Stress incontinence of urine N39.3 and Cough R05 [facility] [id number] [place] [address] 25887- 6420 Jul, [facility] [id number] [place] [address] 38741- 1026 Jul, [place] [address] [address] 2546 Jul, [facility] [id number] [place] [address] 86046 2546 Jul, Gastroesophageal reflux disease, esophagitis presence not specified K21.9 [facility] [address] [address] 2547 Jun, Diabetic polyneuropathy associated with type 2 diabetes mellitus E11.42 [facility] [id number] [place] [address] 00959 2545 Jun, Diabetic polyneuropathy associated with type 2 diabetes mellitus E11.42 ; Coronary artery disease involving e[place] coronary artery of [place] 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 I25.118 and Paroxysmal atrial fibrillation I48.0 [facility] [id number] [place] [address] 30783- 8514 Jun, [facility] [id number] [place] [address] 58445 2545 Jun, [facility] [id number] [place] [address] 46443 2546 Jun, Gastroenteritis K52.9 [facility] [id number] [place] [address] 99477 2546 Jun, Gastroenteritis K52.9 [facility] [address] [address] 254 Jun, [facility] [id number] [address] 2546 Jun, [facility] [address] [address] 2547 Jun, Sprain of right ankle, unspecified ligament, initial encounter S93.401A ; Type 2 diabetes mellitus with diabetic neuropathy, without long-term current use of insulin E11.40 ; Atherosclerosis of [place] artery of both lower extremities with intermittent claudication I70.213 ; 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.118 ; Chronic atrial fibrillation I48.2 and Crohn''s disease without complication, unspecified gastrointestinal tract location K50.90 [facility] [id number] [place] [address] 34402 -1843 17 Jun, 2017 Cough R05 and Chronic obstructive pulmonary disease with acute lower respiratory infection J44.0 [facility] [id number] [place] [address] 08004- 5904 Jun, [facility] [address] 28550- 5158 Jun, Coughing R05 ; Unspecified atherosclerosis of [place] arteries of extremities, unspecified extremity I70.209 ; Type 2 diabetes mellitus with diabetic peripheral angiopathy without gangrene E11.51 ; Crohn''s disease without complication, unspecified gastrointestinal tract location K50.90 ; Other chronic pancreatitis K86.1 and Chronic atrial fibrillation I48.2 [facility] [id number] [place] [address] 40324 -6376 Jun, [place] [id number] [place] [address] 77821- 4317 Jun, Bipolar affective disorder, currently depressed, moderate F31.32 ; Vascular dementia without behavioral disturbance F01.50 and Generalized anxiety disorder F41.1 [place] [id number] [place] [address] 53312- 5792 May, Generalized anxiety disorder F41.1 [place] [id number] [place] [address] 34715- 5648 May, [place] [id number] [place] [address] 38677- 1259 May, [place] [id number] [place] [address] 59375- 3640 May, Coughing R05 [place] [id number] [place] [address] 70336- 3677 May, [place] [address] [place] [address]- 5923 May, Bipolar affective disorder, currently depressed, moderate F31.32 ; Vascular dementia without behavioral disturbance F01.50 and Generalized anxiety disorder F41.1 [facility] [id number] [place] [address] 59670- 7470 Apr, Generalized anxiety disorder F41.1 [place] [address] 22197- 6789 Apr, [place] [address] 82889- 5681 Apr, Vascular dementia without behavioral disturbance F01.50 ; Generalized anxiety disorder F41.1 and Bipolar affective disorder, currently depressed, moderate F31.32 [place] [id number] [place] [address] 46197- 0145 Apr, Generalized anxiety disorder F41.1 [facility] [address] 94161 -5252 Apr, Cough R05 and Acute exacerbation of chronic obstructive pulmonary disease (COPD) J44.1 [place] [address] 56376- 1910 Apr, [facility] [id number] [place] [address] 63517 -1922 Mar, Cough R05 and Cigarette nicotine dependence without complication F17.210 [place] [id number] [place] [address] 05960- 6135 Mar, [place] [id number] [place] [address] 93673- 8037 Feb, Generalized anxiety disorder F41.1 ; Major depressive disorder, recurrent episode, moderate F33.1 ; Vascular dementia without behavioral disturbance F01.50 and Unspecified psychosis F29 [place] [id number] [place] [address] 23904- 1269 Feb, [place] [address] 51238- 3201 Feb, [place] [address] [place] [address] 87195- 6897 Feb, Generalized anxiety disorder F41.1 [place] [id number] [place] [address] 53919- 7143 Feb, Generalized anxiety disorder F41.1 [place] [id number] [place] [address] 99695- 5334 Feb, Dizziness R42 ; Chronic fatigue R53.82 ; Postconcussion syndrome F07.81 ; Fall, initial encounter W19.XXXA and Disorientation R41.0 [place] [id number] [place] [address] 63582- 3938 Feb, Postconcussion syndrome F07.81 ; Injury of head, initial encounter S09.90XA ; Fall, initial encounter W19.XXXA ; Disorientation R41.0 and Acute cystitis with hematuria N30.01 [place] [id number] [place] [address] 23151- 4922 Jan, Gastroesophageal reflux disease, esophagitis presence not specified K21.9 ; Post-menopausal Z78.0 and Migraine without aura and without status migrainosus, not intractable G43.009 [place] [id number] [place] [address] 76195- 7125 Jan, [place] [id number] [place] [address] 30590- 0060 Jan, Generalized anxiety disorder F41.1 ; Major depressive disorder, recurrent episode, moderate F33.1 ; Vascular dementia without behavioral disturbance F01.50 and Unspecified psychosis F29 [place] [id number] [place] [address] 69767- 4956 Jan, Pneumonia of left lower lobe due to infectious organism J18.1 [place] [id number] [place] [address] 14794- 9103 Jan, Migraine without aura and with status migrainosus, not intractable G43.001 [facility] [address] [place] [address] 87184 -8601 04 Jan, 2017 Migraine without aura and without status migrainosus, not intractable G43.009 [facility] [id number] [place] [address] 96958- 7336 19 Dec, 2016 Hematoma T14.8 [facility] [id number] [place] [address] 69353- 9348 12 Dec, 2016 [facility] [id number] [place] [address] 04937 -7418 Nov, Fatigue, unspecified type R53.83 [place] [id number] [place] [address] 05089- 2139 Nov, Scabies B86 and Coronary artery disease involving e[place] coronary artery of e[place] 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 I25.118 [place] [id number] [place] [address] 46312- 9306 Nov, [facility] [id number] [place] [address] 79398- 7523 Nov, [place] [id number] [place] [address] 87649- 4163 Oct, [facility] [id number] [place] [address] 94221- 0780 Oct, Generalized anxiety disorder F41.1 and Major depressive disorder, recurrent episode, moderate F33.1 [facility] [address] [place] [address] 77182- 2603 Oct, Cramp of both lower extremities R25.2 [place] [id number] [place] [address] 92825- 1604 Oct, Leg cramps R25.2 [place] [id number] [place] [address] 71489- 5196 Oct, Chronic pain syndrome G89.4 [place] [address] [address]- 3294 17 Oct, 2016 [facility] [id number] [place] [address] 40722- 7236 14 Oct, 2016 [facility] [address] [place] [address] 58788- 6623 11 Oct, 2016 Routine gynecological examination Z01.419 and Screening for breast cancer Z12.31 [place] [id number] [place] [address] 83689- 0078 28 Sep, 2016 Diarrhea R19.7 [place] [id number] [place] [address] 01378- 1918 26 Sep, 2016 Back pain M54.9 [place] [id number] [place] [address] 87086- 1600 12 Sep, 2016 [facility] [id number] [place] [address] 95315- 0476 Sep, [facility] [id number] [place] [address] 21106 -6392 August, Xeroderma Q80.9 [place] [id number] [place] [address] 21378- 0437 August, Dementia without behavioral disturbance, unspecified dementia type F03.90 [place] [id number] [place] [address] 54279- 4367 August, Chronic pain syndrome G89.4 [facility] [id number] [place] [address] 78435- 3974 August, [facility] [id number] [place] [address] 17603- 5957 August, Hyperlipidemia E78.5 ; Other fatigue R53.83 and Other specified hypotension I95.89 [facility] [address] [address] -4821 August, Dysuria R30.0 ; Other fatigue R53.83 and Other specified hypotension I95.89 [facility] [address] 30606- 2154 August, [place] [address] 12321- 2923 Jul, Pain in left knee M25.562 and Gastroenteritis K52.9 [place] [address] 64506- 4836 Jul, [facility] [address] 69440- 5907 Jul, Diarrhea R19.7 [facility] [address] 20945 -5796 Jul, Spider bite, accidental or unintentional, initial encounter T63.301A [place] [address] 35998- 1341 Jul, Primary osteoarthritis of right knee M17.11 and Arthritis M19.90 [place] [address] 47738- 8210 Jul, Generalized anxiety disorder F41.1 and Major depressive disorder, recurrent episode, moderate F33.1 [place] [id number] [place] [address] 21694- 6942 Jul, Type 2 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 and Temporal headache R51 [place] [address] 54226- 5389 Jul, Back pain M54.9 [facility] [id number] [place] [address] 62775- 8355 Jul, [place] [address] 32001- 0488 Jul, [facility] [address] 46176- 1908 Jun, Nausea R11.0 [facility] [address] 75719 -5945 Jun, Acute suppurative otitis media of both ears without spontaneous rupture of tympanic membranes, recurrence not specified H66.003 and COPD exacerbation J44.1 [facility] [address] 99610- 1834 Jun, Generalized anxiety disorder F41.1 [place] [address] 41043- 9479 16 Jun, 2016 [facility] [address] 91821 -6752 Jun, [facility] [place] [address] 37525 -8758 Jun, Shortness of breath R06.02 and COPD exacerbation J44.1 [place] [address] 16328- 9690 Jun, Eczema, unspecified type L30.9 [place] [address] 35720- 4435 Jun, [place] [address] 91295- 9913 May, [place] [address] 52776- 5595 May, Muscle cramping R25.2 [place] [address] 51090- 8228 May, [place] [address] 19179- 1343 Apr, Diarrhea R19.7 [place] [address] 51796- 8214 Apr, [place] [address] 15465- 0171 Apr, Chronic pain syndrome G89.4 [place] [address] 84154- 2263 16 Apr, 2016 Cramp of both lower extremities R25.2 and Vascular dementia without behavioral disturbance F01.50 [place] [address] 41444- 2143 Apr, Type 2 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 and Cigarette nicotine dependence without complication F17.210 [place] [address] 04811- 7030 Mar, Generalized anxiety disorder F41.1 [place] [address] 30171- 5762 Feb, Generalized anxiety disorder F41.1 and Major depressive disorder, recurrent episode, moderate F33.1 [place] [address] 68940- 8617 Feb, [facility] [address] 18164 -5604 Feb, Dysuria R30.0 and Acute cystitis with hematuria N30.01 [place] [address] 57443- 1468 Jan, [place] [address] 70877- 5194 Jan, [place] [address] 88505- 2367 Jan, [place] [address] 58555- 8153 Jan, [facility] [address] 00315 -1707 Jan, Wasp sting, accidental or unintentional, initial encounter T63.461A [place] [address] [address]- 4596 06 Jan, 2016 Encounter for immunization Z23 [place] [address] [place] [address] 2456 Jan, [facility] [id number] [place] [address] 08447- 3721 Jan, [facility] [id number] [place] [address] 64212- 1856 28 Dec, 2015 Generalized anxiety disorder F41.1 and Major depressive disorder, recurrent episode, moderate F33.1 [facility] [id number] [place] [address] 57718- 7733 21 Dec, 2015 Routine gynecological examination Z01.419 ; Postmenopausal Z78.0 ; Screening breast examination Z12.39 ; Osteopenia M85.80 and Breast cancer screening Z12.39 [facility] [id number] [place] [address] 92298- 9191 20 Dec, 2015 [facility] [id number] [place] [address] 45349- 3853 19 Dec, 2015 [facility] [id number] [place] [address] 11205- 6248 16 Dec, 2015 [facility] [id number] [place] [address] 59744- 9649 16 Dec, 2015 [facility] [id number] [place] [address] 67900- 7193 14 Dec, 2015 [facility] [address] [address]- 2344 06 Dec, 2015 [facility] [id number] [place] [address] 09523- 8987 30 Nov, 2015 [facility] [address] [address] Nov, Cough R05 ; Other viral agents as the cause of diseases classified elsewhere B97.89 and Acute upper respiratory infection, unspecified J06.9 [facility] [address] [address]- 2770 Nov, [facility] [id number] [address]- 6331 Nov, [facility] [address], [place] [address]- 9440 Nov, [facility] [address] [address]- 6989 Nov, [facility] [id number] [place] [address] 88465- 7779 Nov, [facility] [id number] [place] [address] 88043- 8265 Oct, [facility] [id number] [place] [address] 08084- 8217 Oct, [facility] [id number] [place] [address] 96910- 2960 Oct, [facility] [id number] [place] [address] 77270- 7951 Oct, Chronic pain syndrome G89.4 [facility] [address] [address]- 6349 Sep, Generalized anxiety disorder F41.1 and Major depressive disorder, recurrent episode, moderate F33.1 [facility] [address], [place] [address]- 9463 Sep, [facility] [address], [place] [address]- 0984 Sep, [facility] [address] [address]- 7021 14 Sep, 2015 Generalized anxiety disorder F41.1 [facility] [id number] [place] [address] 85081- 6002 13 Sep, 2015 Cramp of both lower extremities R25.2 and Cervicalgia M54.2 [facility] [address] [address]- 6126 06 Sep, 2015 Generalized anxiety disorder F41.1 [facility] [address], [place] [address]- 0665 Sep, [facility] [id number] [place] [address] 75566 -4216 August, Rash R21 ; Itching L29.9 and Allergic response, subsequent encounter T78.40XD [facility] [id number] [place] [address] 37633- 5553 August, Primary insomnia F51.01 [facility] [id number] [place] [address] 70212 -6883 August, Rash R21 ; Itching L29.9 and Allergic response, initial encounter T78.40XA [place] [id number] [place] [address] 09351- 2748 August, [place] [id number] [place] [address] 75761- 6448 August, Cramp of both lower extremities R25.2 [place] [id number] [place] [address] 56597- 0200 August, Back pain M54.9 [place] [id number] [place] [address] 92587- 9022 August, [place] [id number] [place] [address] 93614- 9624 August, [facility] [id number] [place] [address] 43089 -8353 August, Cramp of both lower extremities R25.2 [place] [id number] [place] [address] 76817- 6531 August, [place] [id number] [place] [address] 31786- 1108 August, Syncope R55 ; Paroxysmal atrial fibrillation I48.0 ; Dementia without behavioral disturbance, unspecified dementia type F03.90 and Chronic pain syndrome G89.4 [place] [id number] [place] [address] 52298- 3365 August, Type 2 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 and Syncope R55 [facility] [id number] [place] [address] 50335- 7883 Jul, [facility] [id number] [place] [address] 50035- 1699 Jul, [facility] [id number] [place] [address] 55093- 1454 Jul, [facility] [id number] [place] [address] 17881- 2292 Jul, [facility] [id number] [place] [address] 24674- 0940 Jul, [facility] [id number] [place] [address] 99310- 6534 Jul, UTI (urinary tract infection) N39.0 [facility] [id number] [place] [address] 08748- 8254 Jul, [facility] [id number] [place] [address] 48781- 0906 Jul, Major depressive disorder, recurrent episode, moderate F33.1 and Generalized anxiety disorder F41.1 [facility] [id number] [place] [address] 83142- 7996 Jul, Generalized anxiety disorder F41.1 [facility] [id number] [place] [address] 84231- 6820 Jul, Diarrhea R19.7 [facility] [id number] [place] [address] 93119- 4949 Jul, [facility] [address] [address]- 1806 Jun, [facility] [id number] [place] [address] 26469- 0855 21 Mar, 2016 Eczema L30.9 [facility] [address], [place] [address]- 5478 Jun, [facility] [id number] [place] [address] 15264- 3666 Jun, COPD (chronic obstructive pulmonary disease) J44.9 [facility] [address] [address]- 9596 Jun, [facility] [id number] [place] [address] 59317 2545 Jun, Major depressive disorder, recurrent episode, moderate F33.1 and Generalized anxiety disorder F41.1 [facility] [id number] [place] [address] 48794- 6246 May, [facility] [id number] [place] [address] 63651- 9364 May, UTI (urinary tract infection) N39.0 [facility] [address] [address]- 2018 May, [facility] [id number] [place] [address] 73181- 6382 May, [facility] [address], [place] [address]- 4780 May, [facility] [address], [place] [address]- 1806 May, [facility] [address] [address]- 254 Apr, Major depressive disorder, recurrent episode, moderate F33.1 and Generalized anxiety disorder F41.1 [facility] [address], [place] [address]- 8921 Apr, COPD (chronic obstructive pulmonary disease) J44.9 [facility] [address], [place] [address]- 2086 Apr, [facility] [address], [place] [address]- 9149 Apr, Atrial flutter I48.92 [facility] [id number] [place] [address] 79535- 0842 Apr, [facility] [address], [place] [address]- 9526 Apr, [facility] [id number] [place] [address] 02396- 8296 Mar, [facility] [id number] [place] [address] 32221- 2262 Mar, [facility] [id number] [place] [address] 02557- 0063 Mar, [facility] [id number] [place] [address] 12845- 8386 Mar, Hyperlipidemia E78.5 ; Type 2 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 ; Major depressive disorder, recurrent episode, moderate F33.1 and Chronic pain syndrome G89.4 [facility] [id number] [place] [address] 97136- 3571 Mar, [facility] [address], [place] [address]- 4547 Mar, [facility] [address], [place] [address]- 8066 Mar, [facility] [address], [place] [address]- 6316 Mar, [facility] [id number] [place] [address] 18297- 2164 Feb, COPD (chronic obstructive pulmonary disease) J44.9 and Back pain M54.9 [facility] [address] [address]- 2603 Feb, [facility] [id number] [place] [address] 21366- 0361 Feb, [facility] [address], [place] [address]- 8835 Feb, [facility] [id number] [place] [address] 02183- 5093 Feb, [facility] [id number] [place] [address] 52778- 8194 Feb, [facility] [id number] [place] [address] 27125- 6738 Feb, [facility] [id number] [place] [address] 38100- 4858 Feb, [facility] [id number] [place] [address] 70125- 9818 Feb, [facility] [id number] [place] [address] 84809- 8223 Feb, Diabetes E11.9 ; Back pain M54.9 and COPD (chronic obstructive pulmonary disease) J44.9 [facility] [id number] [place] [address] 28869- 9386 Jan, [facility] [id number] [place] [address] 09858- 7977 Jan, Major depression, recurrent F33.9 and Generalized anxiety disorder F41.1 [facility] [id number] [place] [address] 21236- 0374 Jan, Chronic pain G89.29 [facility] [id number] [address]- 6694 Jan, [facility] [id number] [place] [address] 74755- 6172 Jan, [facility] [id number] [place] [address] 94851- 6957 Jan, [facility] [id number] [place] [address] 85463- 1468 Jan, [facility] [id number] [place] [address] 24914- 9717 Jan, Nicotine dependence F17.200 [facility] [id number] [place] [address] 93234- 7499 Jan, Nicotine dependence F17.200 and Back pain M54.9 [facility] [id number] [place] [address] 98535- 1296 Jan, [facility] [id number] [place] [address] 58738- 4275 28 Dec, 2014 [facility] [id number] [place] [address] 21900- 0066 25 Dec, 2014 Anxiety, generalized 300.02 and Major depression, recurrent 296.30 [facility] [id number] [place] [address] 33777- 7871 24 Dec, 2014 [facility] [id number] [place] [address] 43255- 6291 21 Dec, 2014 [facility] [id number] [place] [address] 82690- 3821 17 Dec, 2014 [facility] [id number] [place] [address] 86205- 1595 15 Dec, 2014 [facility] [id number] [place] [address] 89731- 8331 14 Dec, 2014 [facility] [id number] [place] [address] 75470- 4190 11 Dec, 2014 [facility] [id number] [place] [address] 91733- 5774 10 Dec, 2014 [facility] [id number] [place] [address] 72779- 2268 08 Dec, 2014 Skin tear 879.8 [facility] [id number] [place] [address] 57302- 3748 08 Dec, 2014 Routine gynecological examination V72.31 ; Breast cancer screening V76.10 and Family history of breast cancer in first degree relative V16.3 [facility] [id number] [place] [address] 23889- 8997 Dec, [facility] [id number] [place] [address] 18024- 8767 Dec, [facility] [id number] [place] [address] 88516- 3267 Nov, [facility] [id number] [place] [address] 31703- 1076 Nov, [facility] [id number] [place] [address] 03878- 0182 Nov, Poor balance 781.99 and Vascular dementia, uncomplicated 290.40 [facility] [id number] [place] [address] 45874- 6162 Nov, [facility] [id number] [place] [address] 81929- 9797 Nov, Major depression, recurrent 296.30 and Anxiety, generalized 300.02 [facility] [id number] [place] [address] 60271- 5981 Nov, [facility] [id number] [place] [address] 14236- 3371 Nov, [facility] [id number] [place] [address] 86536- 7769 Nov, [facility] [id number] [place] [address] 04426- 7290 Nov, [facility] [id number] [place] [address] 69989- 0925 Nov, Vascular dementia, uncomplicated 290.40 and Lumbago 724.2 [facility] [id number] [place] [address] 77207- 0236 Nov, [facility] [id number] [place] [address] 21845- 3986 Nov, [facility] [address], [place] [address]- 1697 Nov, [facility] [address], [place] [address]- 9865 Oct, [facility] [address] [address]- 9326 Oct, [facility] [id number] [address]- 8500 Oct, [facility] [address] [address]- 1904 Oct, COPD (chronic obstructive pulmonary disease) 496 and Hyperlipidemia 272.4 [facility] [address], [place] [address]- 9369 Oct, Major depression, recurrent 296.30 and Anxiety, generalized 300.02 [facility] [address], [place] [address]- 1936 Oct, [facility] [address] [address]- 8750 Oct, [facility] [address] [address]- 9804 Oct, [facility] [address] [address]- 5293 Sep, Lumbago 724.2 and Anxiety state, unspecified 300.00 [facility] [address] [address]- 6105 Sep, [facility] [address], [place] [address]- 0467 Sep, [facility] [address] [address]- 6242 August, [facility] [id number] [address]- 9494 August, Major depression, recurrent 296.30 ; Anxiety, generalized 300.02 and No condition on [place] II V71.09 [facility] [address] [place] [address]- 5806 August, [facility] [id number] [place] [address]- 7936 August, [facility] [address] [place] [address]- 4466 Jul, [facility] [address] [facility] [id number] [place] [address]- 6639 Jul, [facility] [id number] [place] [address], [place]- 6687 Jul, [facility] [id number] [place] [address]- 5097 Jun, [facility] [address] [place] [address]- 4650 Jun, [facility] [id number] [address]- 5945 Jun, [facility] [address] [place] [address]- 6157 Jun, [facility] [id number] [place] [address]- 9929 Jun, [facility] [address] [place] [address]- 9300 Jun, [facility] [id number] [address]- 7190 Jun, [facility] [address] [place] [address]- 9215 17 Jun, 2014 [facility] [id number] [address]- 4626 Jun, [facility] [address] [address]- 9433 Jun, [facility] [place] [facility] [address] [id number] [place] [address]- 1062 10 Jun, 2014 [facility] [place] [facility] [address] [id number] [place] [address]- 2695 10 Jun, 2014 [facility] [place] [facility] [address] [id number] [place] [address]- 5557 07 Jun, 2014 [facility] [place] [facility] [address] [id number] [place] [address]- 0158 07 Jun, 2014 [facility] [place] [facility] [address] [id number] [place] [address]- 5370 Jun, [facility] [place] [facility] [address] [id number] [place] [address]- 4553 Jun, 2014 [facility] [place] [facility] [address] [facility] [id number] [place] [address]- 1290 May, 2014 [facility] [place] [facility] [address] [facility] [id number] [place] [address]- 0510 May, 2014 [facility] [place] [facility] [address] [id number] [place] [address]- 3935 20 May, 2014 [facility] [place] [facility] [address] [facility] [id number] [place] [address]- 6592 May, 2014 [facility] [place] [facility] [address] [facility] [id number] [place] [address]- 8251 May, 2014 [facility] [place] [facility] [address] [id number] [place] [address]- 7208 May, 2014 [facility] [place] [facility] [address] [id number] [place] [address]- 1954 19 May, 2014 [facility] [place] [facility] [address] [facility] [id number] [place] [address]- 0659 12 May, 2014 [facility] [place] [facility] [address] [facility] [id number] [place] [address] 11 May, 2014 [facility] [place] [facility] [address] [id number] [place] [address] May, 2014 [facility] [place] [facility] [address] [id number] [place] [address] May, 2014 [facility] [place] [facility] [address] [id number] [place] [address] May, 2014 [facility] [place] [facility] [address] [id number] [place] [address] May, 2014 [facility] [place] [facility] [address] [id number] [place] [address] May, [facility] [place] [facility] [address] [id number] [place] [address] Apr, [facility] [place] [facility] [address] [id number] [place] [address] Apr, [facility] [place] [facility] [address] [id number] [place] [address] Apr, [facility] [place] [facility] [address] [id number] [place] [address] Apr, [facility] [place] [facility] [address] [id number] [place] [address] Apr, [facility] [place] [facility] [address] [id number] [place] [address] Apr, [facility] [place] [facility] [address] [id number] [address] Apr, [facility] [place] [facility] [address] [id number] [place] [address]- [address] Apr, [facility] [place] [facility] [address] [id number] [place] [address] Apr, [facility] [place] [facility] [address] [id number] [place] [address] Apr, [facility] [place] [facility] [address] [id number] [place] [address] Apr, [facility] [place] [facility] [address] [id number] [place] [address] Apr, [facility] [place] [facility] [address] [id number] [place] [address] Mar, [facility] [place] [facility] [address] [id number] [place] [address] Mar, [facility] [place] [facility] [address] [id number] [place] [address] 30 Mar, 2014 [facility] [place] [facility] [address] [id number] [place] [address] 30 Mar, 2014 [facility] [place] [facility] [address] [id number] [place] [address] Mar, [facility] [place] [facility] [address] [id number] [place] [address] Mar, [facility] [place] [facility] [address] [id number] [place] [address] Mar, [facility] [place] [facility] [address] [id number] [place] [address] 19 Mar, 2014 [facility] [place] [facility] [address] [id number] [place] [address] 15 Mar, 2014 [facility] [place] [facility] [address] [id number] [place] [address] 15 Mar, 2014 [facility] [place] [facility] [address] [id number] [place] [address] 15 Mar, 2014 [facility] [place] [facility] [address] [id number] [place] [address] 15 Mar, 2014 [facility] [place] [facility] [address] [id number] [place] [address]- 7951 15 Mar, 2014 [facility] [place] [facility] [address] [id number] [place] [address]- 3032 15 Mar, 2014 [facility] [place] [facility] [address] [id number] [place] [address]- 5312 Mar, [facility] [place] [facility] [address] [id number] [place] [address]- 9765 Mar, [facility] [place] [facility] [address] [id number] [place] [address] Mar, [facility] [place] [facility] [address] [id number] [place] [address] Mar, [facility] [place] [facility] [address] [id number] [place] [address]- 8765 Mar, [facility] [place] [facility] [address] [id number] [place] [address]- 2627 Mar, [facility] [place] [facility] [address] [id number] [place] [address]- 6302 Feb, [facility] [place] [facility] [address] [id number] [place] [address]- 2000 Feb, [facility] [place] [facility] [address] [id number] [place] [address]- 5108 Feb, [facility] [place] [facility] [address] [id number] [place] [address]- 2096 Feb, [facility] [place] [facility] [address] [facility] [id number] [place] [address]- 2675 Feb, [facility] [place] [facility] [address] [id number] [place] [address]- 1873 Feb, [facility] [place] [facility] [address] [id number] [place] [address]- 3329 Feb, [facility] [place] [facility] [address] [id number] [place] [address]- 4573 Feb, [facility] [place] [facility] [address] [id number] [place] [address]- 3276 Feb, [facility] [place] [facility] [address] [id number] [place] [address]- 6877 Feb, [facility] [place] [facility] [address] [id number] [place] [address]- 3657 Feb, [facility] [place] [facility] [address] [id number] [place] [address]- 1478 Feb, [facility] [place] [facility] [address] [id number] [place] [address]- 6670 Feb, [facility] [place] [facility] [address] [id number] [place] [address]- 3885 Feb, [facility] [place] [facility] [address] [id number] [place] [address]- 6412 Feb, [facility] [place] [facility] [address] [id number] [place] [address]- 3946 Feb, [facility] [place] [facility] [address] [id number] [place] [address]- 6250 Feb, [facility] [place] [facility] [address] [id number] [place] [address]- 4228 Jan, [facility] [place] [facility] [address] [id number] [place] [address]- 0166 Jan, [facility] [place] [facility] [address] [id number], [place] [address]- 1339 Jan, [facility] [place] [facility] [address] [id number], [place] [address]- 8153 Jan, [facility] [place] [facility] [address] [id number], [place] [address]- 8181 Jan, [facility] [place] [facility] [address] [id number] [place] [address]- 4939 Jan, [facility] [place] [facility] [address] [id number], [place] [address]- 7701 Jan, [facility] [place] [facility] [address] [id number] [address] Jan, [facility] [place] [facility] [address] [id number], [place] [address]- 2228 Jan, [facility] [place] [facility] [address] [id number] [place] [address]- 3682 Jan, [facility] [place] [facility] [address] [id number] [place] [address]- 3403 Jan, [facility] [place] [facility] [address] [id number] [place] [address]- 2123 Dec, [facility] [place] [facility] [address] [id number] [place] [address]- 9185 Dec, [facility] [place] [facility] [address] [id number] [place] [address]- 5224 Nov, [facility] [place] [facility] [address] [id number] [place] [address]- 6536 Nov, [facility] [place] [facility] [address] [id number] [place] [address]- 2746 Nov, [facility] [place] [facility] [address] [id number] [place] [address]- 5156 Nov, [facility] [place] [facility] [address] [id number] [place] [address]- 4687 Nov, [facility] [place] [facility] [address] [id number] [place] [address]- 4375 Nov, [facility] [place] [facility] [address] [id number] [place] [address]- 2541 Nov, [facility] [place] [facility] [address] [id number] [place] [address]- 4712 Oct, [facility] [place] [facility] [address] [id number] [place] [address]- 8707 Oct, [facility] [place] [facility] [address] [id number] [place] [address]- 8958 Oct, [facility] [place] [facility] [address] [id number] [place] [address]- 6973 Oct, [facility] [place] [facility] [address] [id number] [place] [address]- 2407 30 Sep, 2013 [facility] [place] [facility] [address] [id number] [place] [address]- 9916 Sep, [facility] [place] [facility] [address] [id number] [place] [address]- 6621 Sep, [facility] [place] [facility] [address] [id number] [place] [address]- 7601 Sep, [facility] [place] [facility] [address] [id number] [place] [address]- 1136 Sep, [facility] [place] [facility] [address] [id number] [place] [address]- 8732 Sep, [facility] [place] [facility] [address] [id number] [place] [address]- 6665 Sep, [facility] [place] [facility] [address] [id number] [place] [address]- 8967 Sep, [facility] [place] [facility] [address] [id number] [place] [address]- 3021 Sep, [facility] [place] [facility] [address] [id number] [place] [address]- 0794 Sep, [facility] [place] [facility] [address] [id number] [place] [address]- 5084 Sep, [facility] [place] [facility] [address] [id number] [place] [address]- 4684 Sep, [facility] [place] [facility] [address] [id number] [place] [address]- 8643 Sep, [facility] [place] [facility] [address] [id number] [place] [address]- 6268 Sep, [facility] [place] [facility] [address] [id number] [place] [address]- 6634 August, [facility] [place] [facility] [address] [id number] [place] [address]- 9210 August, [facility] [address] [id number] [place] [address]- 1950 August, [facility] [place] [facility] [address] [id number] [place] [address]- 9428 August, [facility] [place] [facility] [address] [id number] [place] [address]- 6378 August, [facility] [place] [facility] [address] [id number] [place] [address]- 3847 August, [facility] [place] [facility] [address] [id number] [place] [address]- 9088 August, [facility] [place] [facility] [address] [id number] [place] [address]- 2841 August, [facility] [place] [facility] [address] [id number] [place] [address]- 1970 August, [facility] [place] [facility] [address] [id number] [place] [address]- 8341 August, [facility] [place] [facility] [address] [id number] [place] [address]- 7464 August, [facility] [place] [facility] [address] [id number] [place] [address]- 2008 August, [facility] [place] [facility] [address] [id number] [place] [address]- 2477 August, [facility] [place] [facility] [address] [id number] [place] [address]- 2190 August, [facility] [place] [facility] [address] [id number] [place] [address]- 5299 August, [facility] [place] [facility] [address] [id number] [place] [address]- 8012 August, [facility] [place] [facility] [address] [id number] [place] [address]- 1373 August, [facility] [place] [facility] [address] [id number] [place] [address]- 0858 August, [facility] [place] [facility] [address] [id number] [place] [address]- 0381 August, [facility] [place] [facility] [address] [id number] [place] [address]- 4633 Jul, [facility] [place] [facility] [address] [id number] [place] [address]- 2724 Jul, [facility] [place] [facility] [address] [id number] [place] [address]- 6023 Jul, [facility] [place] [facility] [address] [id number] [place] [address]- 0871 Jul, [facility] [place] [facility] [address] [id number] [place] [address]- 6257 Jun, [facility] [place] [facility] [address] [id number] [place] [address]- 8032 Jun, [facility] [place] [facility] [address] [id number] [place] [address]- 4578 Jun, [facility] [place] [facility] [address] [id number] [place] [address]- 5734 24 Jun, 2013 [facility] [place] [facility] [address] [id number] [place] [address]- 9545 Jun, [facility] [place] [facility] [address] [id number] [place] [address]- 2411 Jun, [facility] [place] [facility] [address] [id number] [place] [address]- 1049 Jun, [facility] [place] [facility] [address] [id number] [place] [address]- 9420 Jun, [facility] [place] [facility] [address] [id number] [place] [address]- 1737 Jun, [facility] [place] [facility] [address] [id number] [place] [address]- 2719 Jun, [facility] [place] [facility] [address] [id number] [place] [address]- 8468 May, [facility] [place] [facility] [address] [id number] [place] [address]- 2216 May, [facility] [place] [facility] [address] [id number] [place] [address]- 1466 May, [facility] [place] [facility] [address] [id number] [place] [address] 2546 May, [facility] [place] [facility] [address] [id number] [place] [address] 2546 May, [facility] [place] [facility] [address] [id number] [place] [address]- 5286 May, [facility] [place] [facility] [address] [id number] [place] [address]- 5978 May, [facility] [place] [facility] [address] [id number] [place] [address]- 0266 May, [facility] [place] [facility] [address] [id number] [place] [address]- 0378 May, [facility] [place] [facility] [address] [facility] [id number] [place] [address]- 3240 May, [facility] [place] [facility] [address] [facility] [id number] [place] [address]- 2158 May, [facility] [place] [facility] [address] [id number] [place] [address]- 2546 17 May, 2013 [facility] [place] [facility] [address] [id number] [place] [address]- 2546 May, [facility] [place] [facility] [address] [id number] [place] [address]- 2546 May, [facility] [place] [facility] [address] [facility] [id number] [place] [address]- 2540 10 May, 2013 [facility] [place] [facility] [address] [id number] [place] [address]- 2546 07 May, 2013 [facility] [place] [facility] [address] [id number] [place] [address]- 2416 07 May, 2013 [facility] [place] [facility] [address] [id number] [place] [address]- 2546 Apr, [facility] [place] [facility] [address] [id number] [place] [address]- 4826 Apr, [facility] [place] [facility] [address] [id number] [place] [address]- 9746 Apr, [facility] [place] [facility] [address] [id number] [place] [address]- 8526 Apr, [facility] [place] [facility] [address] [id number] [place] [address]- 0484 Apr, [facility] [place] [facility] [address] [id number] [place] [address]- 4737 Apr, [facility] [place] [facility] [address] [id number] [place] [address]- 9257 Apr, [facility] [place] [facility] [address] [id number] [place] [address]- 5339 Mar, [facility] [place] [facility] [address] [id number] [place] [address]- 4726 Mar, [facility] [place] [facility] [address] [id number] [place] [address]- 2136 Mar, [facility] [place] [facility] [address] [id number] [place] [address]- 2548 Mar, [facility] [place] [facility] [address] [id number] [place] [address]- 9846 Mar, [facility] [place] [facility] [address] [id number] [place] [address]- 2546 Mar, [facility] [place] [facility] [address] [id number] [place] [address]- 7843 Mar, [facility] [address] [id number] [place] [address]- 0486 Mar, [facility] [place] [facility] [address] [id number] [place] [address]- 9906 Mar, [facility] [place] [facility] [address] [id number] [place] Mar, [facility] [place] [facility] [address] [id number] [place] [address]- 9693 Mar, [facility] [place] [facility] [address] [id number] [place] [address]- 2059 Feb, [facility] [place] [facility] [address] [id number] [place] [address]- 9844 Feb, [facility] [place] [facility] [address] [id number] [place] [address]- 7213 Feb, [facility] [place] [facility] [address] [id number], [place] [address]- 9054 20 Feb, 2013 [facility] [place] [facility] [address] [id number], [place] [address]- 8810 19 Feb, 2013 [facility] [place] [facility] [address] [id number], [place] [address]- 3502 19 Feb, 2013 [facility] [place] [facility] [address] [id number], [place] [address]- 3421 15 Feb, 2013 [facility] [place] [facility] [address] [id number], [place] [address]- 6966 14 Feb, 2013 [facility] [place] [facility] [address] [id number], [place] [address]- 1586 14 Feb, 2013 [facility] [place] [facility] [address] [id number], [place] [address]- 5660 13 Feb, 2013 [facility] [place] [facility] [address] [id number], [place] [address]- 5229 13 Feb, 2013 [facility] [place] [facility] [address] [id number] [place] [address]- 0236 12 Feb, 2013 [facility] [place] [facility] [address] [id number] [place] [address]- 2751 12 Feb, 2013 [facility] [place] [facility] [address] [id number] [place] [address]- 2425 Feb, [facility] [place] [facility] [address] [id number] [place] [address]- 4468 Feb, [facility] [place] [facility] [address] [id number] [place] [address]- 6400 Feb, [facility] [place] [facility] [address] [id number] [place] [address]- 3914 Jan, [facility] [place] [facility] [address] [id number] [place] [address]- 1905 Jan, [facility] [place] [facility] [address] [id number] [place] [address]- 5215 Jan, [facility] [place] [facility] [address] [id number] [place] [address]- 7235 Jan, [facility] [place] [facility] [address] [id number] [place] [address]- 2906 Jan, [facility] [place] [facility] [address] [id number] [place] [address]- 0766 Jan, [facility] [place] [facility] [address] [id number] [place] [address]- 2254 22 Jan, 2013 [facility] [place] [facility] [address] [id number] [place] [address]- 2549 10 Jan, 2013 [facility] [place] [facility] [address] [id number] [place] [address]- 4744 10 Jan, 2013 [facility] [place] [facility] [address] [id number] [place] [address]- 254 27 Dec, 2012 [facility] [place] [facility] [address] [id number] [place] [address]- 2703 Dec, [facility] [place] [facility] [address] [id number] [place] [address]- 2760 Dec, [facility] [place] [facility] [address] [id number] [place] [address]- 8317 Dec, [facility] [place] [facility] [address] [id number] [place] [address]- 0649 04 Dec, 2012 [facility] [place] [facility] [address] [id number] [place] [address]- 2675 Dec, [facility] [place] [facility] [address] [id number] [place] [address]- 6529 Nov, [facility] [place] [facility] [address] [id number] [place] [address]- 7923 Nov, [facility] [place] [facility] [address] [id number] [place] [address]- 5571 Nov, [facility] [place] [facility] [address] [id number] [place] [address]- 9315 Nov, [facility] [place] [facility] [address] [id number] [place] [address]- 8662 Nov, [facility] [place] [facility] [address] [id number] [place] [address]- 9271 Nov, [facility] [place] [facility] [address] [id number] [place] [address]- 5660 Nov, [facility] [place] [facility] [address] [id number] [place] [address]- 0985 Nov, [facility] [place] [facility] [address] [id number] [place] [address]- 8269 Nov, [facility] [place] [facility] [address] [id number] [place] [address]- 0552 Nov, [facility] [place] [facility] [address] [id number] [place] [address]- 6723 Oct, [facility] [place] [facility] [address] [id number] [place] [address]- 2911 Oct, [facility] [place] [facility] [address] [id number] [place] [address]- 8399 Oct, [facility] [place] [facility] [address] [id number] [place] [address]- 8855 Oct, [facility] [place] [facility] [address] [id number] [place] [address]- 5567 Oct, [facility] [place] [facility] [address] [id number] [place] [address]- 1560 Oct, [facility] [place] [facility] [address] [id number] [place] [address]- 9366 Oct, [facility] [place] [facility] [address] [id number] [place] [address]- 2053 Oct, [facility] [place] [facility] [address] [id number] [place] [address]- 6383 Sep, [facility] [place] [facility] [address] [id number] [place] [address]- 3896 Sep, [facility] [place] [facility] [address] [id number] [place] [address]- 0554 Sep, [facility] [place] [facility] [address] [id number] [place] [address]- 7180 Sep, [facility] [place] [facility] [address] [id number] [place] [address]- 3786 Sep, [facility] [place] [facility] [address] [id number] [place] [address]- 9284 Sep, [facility] [place] [facility] [address] [id number] [place] [address]- 2117 Sep, [facility] [place] [facility] [address] [id number] [place] [address]- 2176 Sep, [facility] [place] [facility] [address] [id number] [place] [address]- 8221 August, [facility] [place] [facility] [address] [id number] [place] [address]- 6597 August, [facility] [place] [address] [id number] [place] [address] August, [facility] [address] [id number] [place] [address] August, [facility] [address] [id number] [place] [address] August, [facility] [address] [id number] [place] [address] Jul, [facility] [address] [id number] [place] [address] Jul, [facility] [address] [id number] [place] [address] Jul, [facility] [address] [id number] [place] [address] Jul, [facility] [address] [id number] [place] [address] Jul, [facility] [address] [id number] [place] [address] Jun, [facility] [address] [id number] [place] [address] 18 Jun, 2012 [facility] [address] [id number] [place] [address] 15 Jun, 2012 [facility] [address] [id number] [place] [address] 14 Jun, 2012 [facility] [address] [id number] [place] [address] 12 Jun, 2012 [facility] [address] [id number] [place] [address] 08 Jun, 2012 [facility] [address] [id number] [place] [address] Jun, [facility] [address] [id number] [place] [address] Jun, [facility] [address] [id number] [place] [address]26 Jun, [facility] [address] [id number] [place] [address] May, [facility] [address] [id number] [place] [address] May, [facility] [address] [id number] [place] [address] May, [facility] [address] [id number] [place] [address] May, [facility] [address] [id number] [place] [address] Apr, [facility] [address] [id number], [place] [address] Apr, [facility] [address] [id number], [place] [address] Apr, [facility] [address] [facility] [id number], [place] [address] Apr, [facility] [address] [id number], [place] [address] Apr, [facility] [address] [id number], [place] [address] Apr, [facility] [address] [id number], [place] [address] Apr, [facility] [address] [facility] [id number], [place] [address] Mar, [facility] [address] [place] [id number] Mar, [facility] [address] [id number], [place] [address] Mar, [facility] [place] [facility] [address] [id number] [place] [address] Mar, [facility] [place] [facility] [address] [id number] [place] [address] Mar, [facility] [place] [facility] [address] [id number] [place] [address] Mar, [facility] [place] [facility] [address] [id number] [place] [address] Mar, [facility] [place] [facility] [address] [id number] [place] [address] 2418 Mar, [facility] [place] [facility] [address] [id number] [place] [address] 87[address] Mar, [facility] [place] [facility] [address] [id number] [place] [address] 75[address] Mar, [facility] [place] [facility] [address] [id number] [place] [address] 99[address] Mar, [facility] [place] [facility] [address] [id number] [place] [address] Mar, [facility] [place] [facility] [address] [id number] [place] [address]- 8665 Mar, [facility] [place] [facility] [address] [id number] [place] [address]- [address] Mar, [facility] [place] [facility] [address] [id number] [place] [address] 68[address] Mar, [facility] [place] [facility] [address] [id number] [place] [address] Mar, [facility] [place] [facility] [address] [id number] [place] [address]- [address] Mar, [facility] [place] [facility] [address] [id number] [place] [address]- 279[address] Feb, [facility] [place] [facility] [address] [id number] [place] [address]- 1845 Feb, [facility] [place] [facility] [address] [id number] [place] [address]- [address]598 Feb, [facility] [place] [facility] [address] [id number] [place] [address] Feb, [facility] [place] [facility] [address] [id number] [place] [address]- 1617 Feb, [facility] [place] [facility] [address] [id number] [place] [address]- 5966 Feb, [facility] [place] [facility] [address] [id number] [place] [address]- 0610 Feb, [facility] [place] [facility] [address] [id number] [place] [address]- [address]180 Feb, [facility] [place] [facility] [address] [id number] [place] [address]- 0913 Feb, [facility] [place] [facility] [address] [id number] [place] [address]- 2359 Feb, [facility] [place] [facility] [address] [id number] [place] [address]- [address] Feb, [facility] [place] [facility] [address] [id number] [place] [address] 74[address] Feb, [facility] [place] [facility] [address] [id number] [place] [address]- 35[address] Feb, [facility] [place] [facility] [address] [id number] [place] [address]- 9608 Feb, [facility] [place] [facility] [address] [id number] [place] [address]- 0769 Feb, [facility] [place] [facility] [address] [id number] [place] [address]- 9835 Feb, [facility] [place] [facility] [address] [id number] [place] [address]- 9921 Jan, [facility] [place] [facility] [address] [id number] [place] [address]- [address] Jan, [facility] [place] [facility] [address] [id number] [place] [address]- 7708 Jan, [facility] [place] [facility] [address] [id number] [place] [address]- 9626 Jan, [facility] [place] [facility] [address] [id number] [place] [address]- 5[address] Jan, [facility] [place] [facility] [address] [id number] [place] [address]- 386[address] Jan, [facility] [place] [facility] [address] [id number] [place] [address]- 6795 Jan, [facility] [place] [facility] [address] [id number] [place] [address]- [address] Jan, [facility] [place] [facility] [address] [id number], [place] [address]- [address] Jan, [facility] [place] [facility] [address] [id number] [place] [address]- 4[address] Jan, [facility] [place] [facility] [address] [id number] [address] Jan, [facility] [place] [facility] [address] [id number], [place] [address] Jan, [facility] [place] [facility] [address] [id number], [place] [address] Jan, [facility] [place] [facility] [address] [id number] [place] [address] Jan, [facility] [place] [facility] [address] [id number], [place] [address] Jan, [facility] [place] [facility] [address] [id number], [place] [address] Jan, [facility] [place] [facility] [address] [id number] [place] [address]- [address] 04 Jan, 2012 [facility] [place] [facility] [address] [id number] [place] [address] 2546 21 Dec, 2011 [facility] [place] [facility] [address] [id number] [place] [address] 2546 20 Dec, 2011 [facility] [place] [facility] [address] [id number] [place] [address] 2546 18 Dec, 2011 [facility] [place] [facility] [address] [id number] [place] [address] 2546 18 Dec, 2011 [facility] [place] [facility] [address] [id number] [place] [address]- 7026 10 Dec, 2011 [facility] [place] [facility] [address] [id number] [place] [address] 2546 10 Dec, 2011 [facility] [place] [facility] [address] [id number] [place] [address]- 6959 10 Dec, 2011 [facility] [place] [facility] [address] [id number] [place] [address]- 52[address] 07 Dec, 2011 [facility] [place] [facility] [address] [id number] [place] [address]- 3570 30 Nov, 2011 [facility] [place] [facility] [address] [id number] [place] [address]- 3699 Nov, [facility] [place] [facility] [address] [id number] [place] [address]- 5850 24 Nov, 2011 [facility] [place] [facility] [address] [id number] [place] [address]- 2546 Nov, [facility] [place] [facility] [address] [id number] [place] [address] 2546 Nov, [facility] [place] [facility] [address] [id number] [place] [address]- 2546 16 Nov, 2011 [facility] [place] [facility] [address] [id number] [place] [address]- 6290 30 Oct, 2011 [facility] [place] [facility] [address] [id number] [place] [address]- 0686 30 Oct, 2011 [facility] [place] [facility] [address] [id number] [place] [address]- 4536 Oct, [facility] [place] [facility] [address] [id number] [place] [address] 2546 Oct, [facility] [place] [facility] [address] [id number] [place] [address] 2546 Oct, [facility] [place] [facility] [address] [id number] [place] [address] 2545 Oct, [facility] [place] [facility] [address] [id number] [place] [address]- 98[address] Oct, [facility] [place] [facility] [address] [id number] [place] [address]- 7351 Sep, [facility] [place] [facility] [address] [id number] [place] [address]- 8475 Sep, [facility] [place] [facility] [address] [id number] [place] [address]- 1544 Sep, [facility] [place] [facility] [address] [id number] [place] [address]- 8553 Sep, [facility] [place] [facility] [address] [id number] [place] [address]- 9175 Sep, [facility] [place] [facility] [address] [id number] [place] [address]- 2543 15 Sep, 2011 [facility] [place] [facility] [address] [id number] [place] [address] 2542 14 Sep, 2011 [facility] [place] [facility] [address] [id number] [place] [address] 2540 11 Sep, 2011 [facility] [place] [facility] [address] [id number] [place] [address] 2541 05 Sep, 2011 [facility] [place] [facility] [address] [id number] [place] [address]- 5879 Sep, [facility] [address] [id number] [place] [address]- 5265 August, [facility] [place] [facility] [address] [id number] [place] [address]- 1776 August, [facility] [address] [id number] [place] [address]- 5448 August, [facility] [place] [facility] [address] [id number] [place] [address]- 9746 August, [facility] [address] [id number] [place] [address]- 4664 August, [facility] [address] [id number] [place] [address]- 9281 Jul, [facility] [place] [facility] [address] [id number] [place] [address]- 9005 Jul, [facility] [place] [facility] [address] [id number] [place] [address]- 7129 Jul, [facility] [place] [facility] [address] [id number] [place] [address]- 7448 Jul, [facility] [place] [facility] [address] [id number] [place] [address]- 9487 Jul, [facility] [place] [facility] [address] [id number] [place] [address]- 1096 Jul, [facility] [place] [facility] [address] [id number], [place] [address]89 Jul, [facility] [place] [facility] [address] [id number] [place] [address]- 5248 Jun, [facility] [place] [facility] [address] [id number] [place] [address]- 3571 Jun, [facility] [place] [facility] [address] [id number] [place] [address]- 8484 Jun, [facility] [place] [facility] [address] [id number] [place] [address]- 8889 Jun, [facility] [place] [facility] [address] [id number] [place] [address]- 2956 Jun, [facility] [place] [facility] [address] [id number] [place] [address] 2546 May, [facility] [place] [facility] [address] [id number] [place] [address]- 8206 May, [facility] [place] [facility] [address] [id number] [place] [address] 2549 May, [facility] [place] [facility] [address] [id number] [place] [address]- 1576 May, [facility] [place] [facility] [address] [facility] [id number] [place] [address]- 4685 May, [facility] [place] [facility] [address] [id number] [place] [address] 8389 May, [facility] [place] [facility] [address] [facility] [id number] [place] [address]- 6829 Apr, [facility] [place] [facility] [address] [id number] [place] [address]- 1752 Mar, [facility] [place] [facility] [address] [facility] [id number] [place] [address]- 2094 Feb, [facility] [place] [facility] [address] [facility] [id number] [place] [address]- 8913 Feb, [facility] [place] [facility] [address] [id number] [place] [address] 2541 Feb, [facility] [place] [facility] [address] [facility] [id number] [place] [address] 2546 Feb, [facility] [place] [facility] [address] [facility] [id number] [place] [address]- 2546 Jan, [facility] [place] [facility] [address] [facility] [id number] [place] [address]- 0633 27 Jan, 2011 [facility] [place] [facility] [address] [id number] [place] [address]- 8607 26 Jan, 2011 [facility] [place] [facility] [address] [id number] [place] [address]- 9095 24 Jan, 2011 [facility] [place] [facility] [address] [id number] [place] [address]- 2430 14 Jan, 2011 [facility] [place] [facility] [address] [id number] [place] [address]- 2531 19 Dec, 2010 [facility] [place] [facility] [address] [id number] [place] [address]- 9683 Oct, [facility] [place] [facility] [address] [id number] [place] [address]- 4937 August, [facility] [place] [facility] [address] [id number] [place] [address]- 7981 29 Mar, 2010 [facility] [place] [facility] [address] [id number] [place] [address]- 4364 27 Mar, 2010 [facility] [place] [facility] [address] [id number] [place] [address]- 8241 16 Mar, 2010 [facility] [place] [facility] [address] [id number] [place] [address]- 3574 15 Mar, 2010 [facility] [place] [facility] [address] [id number], [place] [address]- 7136 15 Mar, 2010 [facility] [place] [facility] [address] [id number], [place] [address]- 7975 08 Mar, 2010 [facility] [place] [facility] [address] [id number] [place] [address]- 1336 03 Mar, 2010 [facility] [place] [facility] [address] [id number] [place] [address]- 4077 24 Feb, 2010 [facility] [place] [facility] [address] [id number] [place] [address]- 8433 24 Feb, 2010 [facility] [place] [facility] [address] [id number] [place] [address]- 7601 15 Feb, 2010 [facility] [place] [facility] [address] [id number] [place] [address]- 3557 19 Jan, 2010 [facility] [place] [facility] [address] [id number] [place] [address]- 4717 18 Jan, 2010 [facility] [place] [facility] [address] [id number] [place] [address]- 7097 18 Jan, 2010 [facility] [place] [facility] [address] [id number] [place] [address]- 2324 Nov, [facility] [place] [facility] [address] [id number] [place] [address]- 0040 14 Sep, 2009 [facility] [place] [facility] [address] [id number] [place] [address]- 8909 August, [facility] [place] [facility] [address] [facility] [id number] [place] [address]- 7625 30 Mar, 2009 [facility] [place] [facility] [address] [id number], [place] [address]- 4169 07 Mar, 2009 [facility] [place] [facility] [address] [facility] [id number] [place] [address]- 7174 17 Feb, 2009 [facility] [place] [facility] [address] [facility] [id number], [place] [address]- 4450 10 Feb, 2009 [facility] [place] [facility] [address] [facility] [id number] [place] [address]- 6113 10 Feb, 2009 [facility] [place] [facility] [address] [facility] [id number], [place] [address]- 2540 10 Feb, 2009 [facility] [place] [facility] [address] [id number], [place] [address]- 3713 06 Feb, 2009 [facility] [place] [facility] [address] [facility] [id number], [place] [address]- 4030 27 Jan, 2009 [facility] [place] [facility] [address] [id number], [place] [address]- 4719 26 Jan, 2009 [facility] [address] [id number], [place] [address]- 2949 Jan, [facility] [id number], [place] [address]- 7495 Jan, [facility] [id number], [place] [address]- 7921 Nov, [facility] [id number] [place] [address]- 7070 Sep, [facility] [id number], [place] [address]- 9053 August, [facility] [id number] [place] [address]- 2081 Jul, [facility] [id number], [place] [address]- 6127 May, IMMUNIZATIONS No Known Immunizations SOCIAL HISTORY Never Assessed REASON FOR VISIT CM referral PLAN OF CARE VITAL SIGNS MEDICATIONS Unknown [...] Hospitalization History Knee Surgery 07/16/17 Hospitalization History [facility]- left hand/wrist swelling 10/09/2017
--- OUTSIDE RECORDS SUMMARY | 2018-01-01 11:58 | XMS REPORT ---
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 Active 46253007 Problem Colon polyp K63.5 Active 03325442 Problem Bilateral low back pain without sciatica M54.5 Active 109770069 Problem Screening breast examination Z12.39 Active 199443177 Problem Postmenopausal Z78.0 Active 60259650 Problem Osteopenia M85.80 Active 449988120 Problem Cigarette nicotine dependence without complication F17.210 Active 03121104 Problem Type 2 diabetes mellitus with diabetic peripheral angiopathy without gangrene E11.51 Active 494973008 Problem Vascular dementia without behavioral disturbance F01.50 Active [id number] Problem Unspecified atherosclerosis of zuni arteries of extremities, unspecified extremity I70.209 Active 806296453952200 Problem Arthritis M19.90 Active 7472058 Problem Chronic atrial fibrillation I48.2 Active 673223439 Problem Chronic obstructive pulmonary disease with acute lower respiratory infection J44.0 Active 936818915 Problem Other chronic pancreatitis K86.1 Active 167511388 Problem Stress incontinence of urine N39.3 Active 38756025 Problem Controlled type 2 diabetes mellitus without complication, without long -term current use of insulin E11.9 Active 777078180 Problem Unspecified psychosis F29 Active 40276585 Problem Xeroderma Q80.9 Active 93414807 Problem COPD (chronic obstructive pulmonary disease) J44.9 Active 98147293 Problem Dementia without behavioral disturbance, unspecified dementia type F03.90 Active 93112956 Problem Gastroparesis K31.84 Active 828077550 Problem Type 2 diabetes mellitus with diabetic neuropathy, without long-term current use of insulin E11.40 Active 85680731 Problem Osteoporosis M81.0 Active 77711807 Problem Atherosclerosis of zuni artery of both lower extremities with intermittent claudication I70.213 Active 452886415859690 Problem Hyperlipidemia E78.5 Active 70696722 Problem Diabetic polyneuropathy associated with type 2 diabetes mellitus E11.42 Active 68205005 Problem Essential tremor G25.0 Active 92257843 Problem 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 Active 5256756858711 Problem Generalized anxiety disorder F41.1 Active 963483003 Problem Gastroesophageal reflux disease, esophagitis presence not specified K21.9 Active 624421206 Problem Coronary artery disease involving zuni coronary artery of zuni 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 I25.118 Active 6804891377716 Problem Postconcussion syndrome F07.81 Active 86323961 Problem Chronic pain syndrome G89.4 Active 581969213 Problem Migraine without aura and without status migrainosus, not intractable G43.009 Active 681011606 Problem Paroxysmal atrial fibrillation I48.0 Active 429707338 Problem Migraine without aura and with status migrainosus, not intractable G43.001 Active 721351975 Problem Cervicalgia M54.2 Active 9677316999904 Problem Acute exacerbation of chronic obstructive pulmonary disease (COPD) J44.1 Active 026185856 Problem Major depressive disorder, recurrent episode, moderate F33.1 Active 667442375 Problem Crohn''s disease without complication, unspecified gastrointestinal tract location K50.90 Active 65191199 Problem Chronic fatigue R53.82 Active 77983758 Problem Bipolar affective disorder, currently depressed, moderate F31.32 Active 348942265 ALLERGIES No Information ENCOUNTERS Encounter Location Date Diagnosis [address] [facility] [id number] [address] Nov, [facility] [id number] [address] Nov, [id number] [address] Oct, [facility] [id number] [address] Oct, Bipolar affective disorder, currently depressed, moderate F31.32 ; Vascular dementia without behavioral disturbance F01.50 and Generalized anxiety disorder F41.1 [facility] [id number] [place] [address] 49994- 5765 Oct, [facility] [id number] [place] [address] 43666- 3667 Oct, [facility] [id number] [place] [address] 84373- 9211 Oct, Edema of both legs R60.0 [facility] [id number] [place] [address] 60308- 4541 Oct, [facility] [id number] [place] [address] 45555- 8201 Sep, [facility] [id number] [place] [address] 68676- 9981 Sep, [facility] [id number] [place] [address] 36219- 2570 Sep, [facility] [id number] [place] [address] 87196- 3796 Sep, Encounter for well woman exam with routine gynecological exam Z01.419 ; Screening for STDs (sexually transmitted diseases) Z11.3 ; Screening breast examination Z12.31 and Overweight (BMI 25.0-29.9) E66.3 [facility] [address], [place] [address] Sep, [facility] [id number] [address] 30[address] Sep, [facility] [id number] [place] [address] 19589- 2643 Sep, [facility] [id number] [place] [address] 37890- 5817 August, [facility] [id number] [address] 9[address] August, [facility] [id number] [address]97 August, Type 2 diabetes mellitus with diabetic neuropathy, without long-term current use of insulin E11.40 and Sprain of right ankle, unspecified ligament, initial encounter S93.401A [facility] [id number] [address] 4[address] August, [facility] [id number] [place] [address] 10963- 9066 August, [facility] [id number] [place] [address] 60789- 0642 August, [facility] [id number] [place] [address] 00405- 1048 August, Gastroesophageal reflux disease, esophagitis presence not specified K21.9 [facility] [id number] [place] [address] 97057- 6006 August, [facility] [id number] [place] [address] 50034- 4719 August, [facility] [id number] [place] [address] 18806- 9258 August, [facility] [id number] [place] [address] 13343- 1441 August, Type 2 diabetes mellitus with diabetic neuropathy, without long-term current use of insulin E11.40 and Elevated liver enzymes R74.8 [facility] [id number] [place] [address] 62280- 6847 Jul, [facility] [id number] [place] [address] 79630- 0009 Jul, Cough R05 [facility] [id number] [place] [address] 45834- 9613 Jul, [facility] [address] [address] 0455 Jul, [facility] [id number] [place] [address] 85471- 1224 Jul, Bipolar affective disorder, currently depressed, moderate F31.32 ; Vascular dementia without behavioral disturbance F01.50 and Generalized anxiety disorder F41.1 [facility] [id number] [place] [address] 88251- 9245 Jul, [facility] [address] 55066- 2232 Jul, Type 2 diabetes mellitus with diabetic neuropathy, without long-term current use of insulin E11.40 and Elevated liver enzymes R74.8 [facility] [address] 47116- 9465 Jul, [facility] [id number] [place] [address] 65267- 6561 Jul, [facility] [id number] [place] [address] 25913- 4816 Jul, [facility] [id number] [place] [address] 73103- 4899 Jul, Post-menopausal Z78.0 [facility] [address] 30281- 6821 Jul, Stress incontinence of urine N39.3 [facility] [id number] [place] [address] 67432- 0295 Jul, [facility] [id number] [place] [address] 01641- 1474 Jul, [facility] [id number] [place] [address] 70825- 4451 Jul, Stress incontinence of urine N39.3 and Cough R05 [facility] [id number] [place] [address] 73720- 1142 Jul, [facility] [id number] [place] [address] 39796- 9495 Jul, [facility] [id number] [place] [address] 45096- 0776 Jul, [facility] [id number] [place] [address] 87788- 4315 Jul, Gastroesophageal reflux disease, esophagitis presence not specified K21.9 [facility] [id number] [place] [address] 04594- 4953 Jun, Diabetic polyneuropathy associated with type 2 diabetes mellitus E11.42 [facility] [id number] [place] [address] 20474- 3291 Jun, Diabetic polyneuropathy associated with type 2 diabetes mellitus E11.42 ; Coronary artery disease involving zuni coronary artery of zuni 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 I25.118 and Paroxysmal atrial fibrillation I48.0 [place] [id number] [place] [address] 03465- 3458 Jun, [place] [id number] [place] [address] 28845- 0096 Jun, [facility] [id number] [place] [address] 29125 254 Jun, Gastroenteritis K52.9 [facility] [id number] [place] [address] 34632 2546 Jun, Gastroenteritis K52.9 [facility] [id number] [place] [address] 47666 254 Jun, [facility] [id number] [place] [address] 30725 2549 Jun, [facility] [id number] [place] [address] 64020- 4641 Jun, Sprain of right ankle, unspecified ligament, initial encounter S93.401A ; Type 2 diabetes mellitus with diabetic neuropathy, without long-term current use of insulin E11.40 ; Atherosclerosis of zuni artery of both lower extremities with intermittent claudication I70.213 ; 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 ; Chronic atrial fibrillation I48.2 and Crohn''s disease without complication, unspecified gastrointestinal tract location K50.90 [facility] [id number] [place] [address] 59468 -4078 17 Jun, 2017 Cough R05 and Chronic obstructive pulmonary disease with acute lower respiratory infection J44.0 [facility] [id number] [place] [address] 29828- 8965 Jun, [place] [id number] [place] [address] 25938- 3036 Jun, Coughing R05 ; Unspecified atherosclerosis of zuni arteries of extremities, unspecified extremity I70.209 ; Type 2 diabetes mellitus with diabetic peripheral angiopathy without gangrene E11.51 ; Crohn''s disease without complication, unspecified gastrointestinal tract location K50.90 ; Other chronic pancreatitis K86.1 and Chronic atrial fibrillation I48.2 [facility] [id number] [place] [address] 84417 -0094 Jun, [place] [id number] [place] [address] 98139- 2532 Jun, Bipolar affective disorder, currently depressed, moderate F31.32 ; Vascular dementia without behavioral disturbance F01.50 and Generalized anxiety disorder F41.1 [place] [id number] [place] [address] 49403- 0568 May, Generalized anxiety disorder F41.1 [place] [id number] [place] [address] 94868- 8950 May, [place] [id number] [place] [address] 46042- 3207 May, [place] [id number] [place] [address] 19306- 1235 May, Coughing R05 [place] [id number] [place] [address] 03926- 7394 09 May, 2017 [place] [id number] [place] [address] 50108- 6334 May, Bipolar affective disorder, currently depressed, moderate F31.32 ; Vascular dementia without behavioral disturbance F01.50 and Generalized anxiety disorder F41.1 [place] [id number] [place] [address] 31171- 2722 Apr, Generalized anxiety disorder F41.1 [place] [id number] [place] [address] 30605- 3412 Apr, [place] [id number] [place] [address] 03361- 8211 Apr, Vascular dementia without behavioral disturbance F01.50 ; Generalized anxiety disorder F41.1 and Bipolar affective disorder, currently depressed, moderate F31.32 [place] [id number] [place] [address] 84183- 2995 Apr, Generalized anxiety disorder F41.1 [facility] [id number] [place] [address] 52388 -3479 Apr, Cough R05 and Acute exacerbation of chronic obstructive pulmonary disease (COPD) J44.1 [place] [id number] [place] [address] 60044- 8204 Apr, [facility] [id number] [place] [address] 10426 -7486 Mar, Cough R05 and Cigarette nicotine dependence without complication F17.210 [place] [id number] [place] [address] 16853- 3011 Mar, [place] [id number] [place] [address] 47923- 4060 Feb, Generalized anxiety disorder F41.1 ; Major depressive disorder, recurrent episode, moderate F33.1 ; Vascular dementia without behavioral disturbance F01.50 and Unspecified psychosis F29 [place] [id number] [place] [address] 47827- 0995 Feb, [place] [id number] [place] [address] 32561- 6631 Feb, [place] [id number] [place] [address] 59004- 4130 Feb, Generalized anxiety disorder F41.1 [place] [id number] [place] [address] 62064- 7587 Feb, Generalized anxiety disorder F41.1 [address] [address] 96563- 8259 Feb, Dizziness R42 ; Chronic fatigue R53.82 ; Postconcussion syndrome F07.81 ; Fall, initial encounter W19.XXXA and Disorientation R41.0 [address] [address] 73219- 5185 Feb, Postconcussion syndrome F07.81 ; Injury of head, initial encounter S09.90XA ; Fall, initial encounter W19.XXXA ; Disorientation R41.0 and Acute cystitis with hematuria N30.01 [address] [address] 15063- 8372 Jan, Gastroesophageal reflux disease, esophagitis presence not specified K21.9 ; Post-menopausal Z78.0 and Migraine without aura and without status migrainosus, not intractable G43.009 [place] [id number] [place] [address] 87789- 1900 Jan, [place] [id number] [place] [address] 82253- 1199 Jan, Generalized anxiety disorder F41.1 ; Major depressive disorder, recurrent episode, moderate F33.1 ; Vascular dementia without behavioral disturbance F01.50 and Unspecified psychosis F29 [address] [address] 98992- 3434 Jan, Pneumonia of left lower lobe due to infectious organism J18.1 [place] [id number] [place] [address] 69218- 8987 Jan, Migraine without aura and with status migrainosus, not intractable G43.001 [facility] [address], [place] [address] 04 Jan, 2017 Migraine without aura and without status migrainosus, not intractable G43.009 [facility] [id number] [place] [address] 94751- 5256 19 Dec, 2016 Hematoma T14.8 [facility] [id number] [place] [address] 89845- 6147 Dec, [facility] [id number] [place] [address] 22749 -1334 Nov, Fatigue, unspecified type R53.83 [place] [id number] [place] [address] 06012- 2682 Nov, Scabies B86 and Coronary artery disease involving zuni coronary artery of zuni 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 I25.118 [place] [id number] [place] [address] 94622- 1685 Nov, [facility] [id number] [place] [address] 74648- 8930 Nov, [place] [id number] [place] [address] 16333- 9965 Oct, [place] [id number] [place] [address] 69518- 0646 Oct, Generalized anxiety disorder F41.1 and Major depressive disorder, recurrent episode, moderate F33.1 [facility] [id number] [place] [address] 97610- 3009 Oct, Cramp of both lower extremities R25.2 [place] [id number] [place] [address] 80896- 6152 Oct, Leg cramps R25.2 [place] [id number] [place] [address] 66716- 4790 Oct, Chronic pain syndrome G89.4 [place] [id number] [address]- 7328 17 Oct, 2016 [facility] [id number] [place] [address] 31174- 6445 14 Oct, 2016 [facility] [id number] [place] [address] 32300- 6045 11 Oct, 2016 Routine gynecological examination Z01.419 and Screening for breast cancer Z12.31 [place] [id number] [place] [address] 10084- 2628 28 Sep, 2016 Diarrhea R19.7 [place] [id number] [place] [address] 96296- 0905 Sep, Back pain M54.9 [place] [id number] [place] [address] 83769- 0340 Sep, [place] [id number] [place] [address] 18913- 5217 Sep, [facility] [id number] [place] [address] 24850 -6054 August, Xeroderma Q80.9 [place] [id number] [place] [address] 91228- 3975 August, Dementia without behavioral disturbance, unspecified dementia type F03.90 [place] [id number] [place] [address] 69915- 4286 August, Chronic pain syndrome G89.4 [place] [id number] [place] [address] 67375- 0983 August, [facility] [id number] [place] [address] 02222- 2700 August, Hyperlipidemia E78.5 ; Other fatigue R53.83 and Other specified hypotension I95.89 [facility] [address], [place] [address] August, Dysuria R30.0 ; Other fatigue R53.83 and Other specified hypotension I95.89 [facility] [id number] [place] [address] 18398- 6809 August, [facility] [address] 81696- 8366 Jul, Pain in left knee M25.562 and Gastroenteritis K52.9 [facility] [address] 91283- 1537 Jul, [facility] [address] 88892- 4633 Jul, Diarrhea R19.7 [facility] [address] 28091 -0034 Jul, Spider bite, accidental or unintentional, initial encounter T63.301A [place] [address] 04552- 2380 Jul, Primary osteoarthritis of right knee M17.11 and Arthritis M19.90 [facility] [address] 22790- 5871 Jul, Generalized anxiety disorder F41.1 and Major depressive disorder, recurrent episode, moderate F33.1 [facility] [id number] [place] [address] 61187- 2712 Jul, Type 2 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 and Temporal headache R51 [facility] [id number] [place] [address] 54350- 4196 Jul, Back pain M54.9 [facility] [id number] [place] [address] 54354- 9903 Jul, [facility] [address] 20104- 6027 Jul, [facility] [id number] [place] [address] 97153- 5033 Jun, Nausea R11.0 [facility] [address] [place] [address] Jun, Acute suppurative otitis media of both ears without spontaneous rupture of tympanic membranes, recurrence not specified H66.003 and COPD exacerbation J44.1 [facility] [address] 46857- 7931 Jun, Generalized anxiety disorder F41.1 [place] [address] 10036- 2437 16 Jun, 2016 [facility] [address] 27063 -7533 Jun, [facility] [address] 97204 -2784 Jun, Shortness of breath R06.02 and COPD exacerbation J44.1 [place] [address] 67135- 2220 Jun, Eczema, unspecified type L30.9 [place] [address] 58669- 0924 Jun, [place] [address] 34135- 7321 May, [facility] [id number] [place] [address] 64373- 3076 May, Muscle cramping R25.2 [facility] [place] [id number] [place] [address] 85224- 3171 May, [place] [address] 47280- 2189 Apr, Diarrhea R19.7 [place] [place] [address] 50446- 5685 Apr, [facility] [id number] [place] [address] 01806- 9968 Apr, Chronic pain syndrome G89.4 [place] [id number] [place] [address] 84291- 7818 16 Apr, 2016 Cramp of both lower extremities R25.2 and Vascular dementia without behavioral disturbance F01.50 [place] [place] [address] 46259- 0378 Apr, Type 2 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 and Cigarette nicotine dependence without complication F17.210 [place] [address] 27364- 9918 Mar, Generalized anxiety disorder F41.1 [place] [address] 02214- 3397 Feb, Generalized anxiety disorder F41.1 and Major depressive disorder, recurrent episode, moderate F33.1 [place] [address] 55555- 1211 Feb, [facility] [address] 68661 -0523 Feb, Dysuria R30.0 and Acute cystitis with hematuria N30.01 [place] [address] [address] [address]- [address] Jan, [place] [address] 47663- 9962 Jan, [place] [address] 40275- 5807 Jan, [place] [address] 07029- 6813 Jan, [facility] [address] [address] -[address]888 Jan, Wasp sting, accidental or unintentional, initial encounter T63.461A [place] [address] 19300- 0296 06 Jan, 2016 Encounter for immunization Z23 [place] [address] 43300- 3293 Jan, [facility] [address], [place] [address] 8440 Jan, [facility] [address] [place] [id number] [place] [address] 10618- 9947 28 Dec, 2015 Generalized anxiety disorder F41.1 and Major depressive disorder, recurrent episode, moderate F33.1 [facility] [address] [place] [id number] [place] [address] 91248- 7421 21 Dec, 2015 Routine gynecological examination Z01.419 ; Postmenopausal Z78.0 ; Screening breast examination Z12.39 ; Osteopenia M85.80 and Breast cancer screening Z12.39 [facility] [address] [place] [id number] [place] [address] 65331- 1452 20 Dec, 2015 [facility] [address] [place] [id number] [place] [address] 85268- 1413 19 Dec, 2015 [facility] [address] [id number] [place] [address] 42340- 2094 16 Dec, 2015 [facility] [address] [id number] [place] [address] 95682- 1131 16 Dec, 2015 [facility] [address] [place] [id number] [place] [address] 24423- 6031 14 Dec, 2015 [facility] [id number] [place] [address] 08545- 2785 Dec, [facility] [address] [id number] [place] [address] 89265- 3461 Nov, [facility] [id number] [place] [address] 07911 -6935 Nov, Cough R05 ; Other viral agents as the cause of diseases classified elsewhere B97.89 and Acute upper respiratory infection, unspecified J06.9 [facility] [address], [place] [address]- 7610 Nov, [facility] [address] [id number] [place] [address] 46980- 0731 Nov, [facility] [address], [place] [address]- 8189 Nov, [facility] [address], [place] [address]- 4281 Nov, [facility] [address], [place] [address]- 3410 Nov, [facility] [address] [place] [id number] [place] [address] 63041- 0729 Oct, [facility] [id number] [place] [address] 53157- 3179 Oct, [facility] [id number] [address]- 6073 Oct, [facility] [id number] [place] [address] 47606- 7400 Oct, Chronic pain syndrome G89.4 [facility] [address], [place] [address]- 3493 Sep, Generalized anxiety disorder F41.1 and Major depressive disorder, recurrent episode, moderate F33.1 [facility] [address], [place] [address]- 0587 Sep, [facility] [address], [place] [address]- 0052 Sep, [facility] [address], [place] [address]- 8708 14 Sep, 2015 Generalized anxiety disorder F41.1 [facility] [address], [place] [address]- 8197 13 Sep, 2015 Cramp of both lower extremities R25.2 and Cervicalgia M54.2 [facility] [address], [place] [address]- 6738 06 Sep, 2015 Generalized anxiety disorder F41.1 [facility] [address] [id number] [address]- 4131 Sep, [facility] [address] [place] [place] [id number] [place] [address] 26589 -6266 August, Rash R21 ; Itching L29.9 and Allergic response, subsequent encounter T78.40XD [facility] [address] [place] [id number] [place] [address] 97585- 5556 August, Primary insomnia F51.01 [facility] [address] [place] [id number] [place] [address] 24173 -0512 August, Rash R21 ; Itching L29.9 and Allergic response, initial encounter T78.40XA [place] [address] [place] [id number] [place] [address] 40883- 2612 August, [place] [address] [place] [id number] [place] [address] 59739- 8233 August, Cramp of both lower extremities R25.2 [place] [address] [place] [id number] [place] [address] 19278- 6260 August, Back pain M54.9 [place] [address] [place] [id number] [place] [address] 48513- 6270 August, [place] [address] [place] [id number] [place] [address] 72134- 6659 August, [facility] [address] [place] [id number] [place] [address] 25503 -5428 August, Cramp of both lower extremities R25.2 [place] [address] [place] [id number] [place] [address] 78990- 2141 August, [place] [address] [place] [id number] [place] [address] 49890- 8838 August, Syncope R55 ; Paroxysmal atrial fibrillation I48.0 ; Dementia without behavioral disturbance, unspecified dementia type F03.90 and Chronic pain syndrome G89.4 [place] [address] [place] [id number] [place] [address] 77689- 3253 August, Type 2 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 and Syncope R55 [facility] [address] [place] [id number] [place] [address] 64105- 5019 Jul, [facility] [address] [place] [id number] [place] [address] 76497- 4299 Jul, [facility] [address] [place] [id number] [place] [address] 54575- 4897 Jul, [facility] [address] [place] [id number] [place] [address] 74786- 0287 Jul, [facility] [address] [place] [id number] [place] [address] 63877- 2355 Jul, [facility] [address] [place] [place] [id number] [place] [address] 61913- 5023 Jul, UTI (urinary tract infection) N39.0 [facility] [address] [place] [id number] [place] [address] 55691- 1542 Jul, [facility] [address] [place] [id number] [place] [address] 28088- 7566 Jul, Major depressive disorder, recurrent episode, moderate F33.1 and Generalized anxiety disorder F41.1 [facility] [address] [place] [id number] [place] [address] 87351- 6840 Jul, Generalized anxiety disorder F41.1 [facility] [id number] [place] [address] 63216- 0766 Jul, Diarrhea R19.7 [facility] [id number] [place] [address] 77565- 7336 Jul, [facility] [id number] [place] [address] 51536- 7647 Jun, [facility] [id number] [place] [address] 45693- 9910 Jun, Eczema L30.9 [facility] [address], [place] [address]- 7840 Jun, [facility] [address], [place] [address]- 9176 Jun, COPD (chronic obstructive pulmonary disease) J44.9 [facility] [address], [place] [address]- 4226 Jun, [facility] [id number] [place] [address] 22308- 7454 Jun, Major depressive disorder, recurrent episode, moderate F33.1 and Generalized anxiety disorder F41.1 [facility] [address], [place] [address]- 3026 May, [facility] [address], [place] [address]- 4019 May, UTI (urinary tract infection) N39.0 [facility] [address], [place] [address]- 0604 May, [facility] [address], [place] [address]- 1647 May, [facility] [address], [place] [address]- 9308 May, [facility] [address], [place] [address]- 9606 May, [facility] [address], [place] [address]- 6862 Apr, Major depressive disorder, recurrent episode, moderate F33.1 and Generalized anxiety disorder F41.1 [facility] [address], [place] [address]- 0822 Apr, COPD (chronic obstructive pulmonary disease) J44.9 [facility] [address], [place] [address]- 4966 Apr, [facility] [id number], [place] [address]- 2624 Apr, Atrial flutter I48.92 [facility] [address] [place] [id number] [place] [address] 26579- 5726 Apr, [facility] [address] [place] [id number] [place] [address] 09447- 5288 Apr, [facility] [address] [place] [id number] [place] [address] 96232- 5879 Mar, [facility] [address] [place] [id number] [place] [address] 48302- 0765 Mar, [facility] [address] [place] [id number] [place] [address] 02978- 9631 Mar, [facility] [address] [place] [id number] [place] [address] 50625- 2218 Mar, Hyperlipidemia E78.5 ; Type 2 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 ; Major depressive disorder, recurrent episode, moderate F33.1 and Chronic pain syndrome G89.4 [facility] [address] [place] [id number] [place] [address] 24269- 8959 Mar, [facility] [address] [place] [id number] [place] [address] 50625- 5724 Mar, [facility] [address] [place] [id number] [place] [address] 93777- 0737 Mar, [facility] [address] [place] [id number] [place] [address] 37651- 5469 Mar, [facility] [id number] [place] [address] 57687- 4550 Feb, COPD (chronic obstructive pulmonary disease) J44.9 and Back pain M54.9 [facility] [address], [place] [address]- 9528 Feb, [facility] [address] [place] [id number] [place] [address] 87636- 3253 Feb, [facility] [address], [place] [address]- 7938 Feb, [facility] [address] [place] [id number] [place] [address] 66090- 9073 Feb, [facility] [address], [place] [address]- 0228 Feb, [facility] [address] [place] [id number] [place] [address] 17602- 5071 Feb, [facility] [address] [place] [id number] [place] [address] 60570- 3461 Feb, [facility] [address] [place] [id number] [place] [address] 79371- 2280 Feb, [facility] [address] [place] [id number] [place] [address] 29715- 3740 Feb, Diabetes E11.9 ; Back pain M54.9 and COPD (chronic obstructive pulmonary disease) J44.9 [facility] [id number] [place] [address] 52524- 6545 Jan, [facility] [address] [place] [id number] [place] [address] 55191- 6652 Jan, Major depression, recurrent F33.9 and Generalized anxiety disorder F41.1 [facility] [id number] [place] [address] 55961- 5858 Jan, Chronic pain G89.29 [facility] [address], [place] [address]- 3056 Jan, [facility] [address] [place] [id number] [place] [address] 95444- 2991 Jan, [facility] [id number] [place] [address] 47560- 6236 Jan, [facility] [address], [place] [address]- 2147 Jan, [facility] [address] [place] [id number] [place] [address] 91164- 9675 Jan, Nicotine dependence F17.200 [facility] [address] 68907- 6101 Jan, Nicotine dependence F17.200 and Back pain M54.9 [facility] [address] [place] [id number] [place] [address] 57797- 8200 Jan, [facility] [address] [place] [place] [id number] [place] [address] 10117- 9669 28 Dec, 2014 [facility] [address] [place] [place] [id number] [place] [address] 77511- 3812 25 Dec, 2014 Anxiety, generalized 300.02 and Major depression, recurrent 296.30 [facility] [address] [place] [place] [id number] [place] [address] 87418- 0542 24 Dec, 2014 [facility] [address] [place] [place] [id number] [place] [address] 75581- 7098 21 Dec, 2014 [facility] [address] [place] [place] [id number] [place] [address] 83333- 5621 17 Dec, 2014 [facility] [address] [place] [place] [id number] [place] [address] 73751- 9850 15 Dec, 2014 [facility] [address] [place] [id number] [place] [address] 69262- 5131 14 Dec, 2014 [facility] [address] [place] [place] [id number] [place] [address] 67473- 1153 11 Dec, 2014 [facility] [address] [place] [id number] [place] [address] 07858- 7012 10 Dec, 2014 [facility] [address] [place] [place] [id number] [place] [address] 56865- 8276 08 Dec, 2014 Skin tear 879.8 [facility] [id number] [place] [address] 20540- 6954 08 Dec, 2014 Routine gynecological examination V72.31 ; Breast cancer screening V76.10 and Family history of breast cancer in first degree relative V16.3 [facility] [address], [place] [address]- 3400 Dec, [facility] [id number] [place] [address] 70530- 9914 Dec, [facility] [address], [place] [address]- 5441 Nov, [facility] [address] [place] [id number] [place] [address] 70264- 0864 Nov, [facility] [id number] [place] [address] 87893- 3504 Nov, Poor balance 781.99 and Vascular dementia, uncomplicated 290.40 [facility] [address] [place] [id number] [place] [address] 05208- 0655 Nov, [facility] [address] [place] [id number] [place] [address] 90469- 6091 Nov, Major depression, recurrent 296.30 and Anxiety, generalized 300.02 [facility] [address] [place] [id number] [place] [address] 73487- 6194 Nov, [facility] [address] [place] [id number] [place] [address] 88511- 0318 Nov, [facility] [address], [place] [address]- 6935 Nov, [facility] [id number] [place] [address] 38889- 5076 Nov, [facility] [address], [place] [address]- 3631 Nov, Vascular dementia, uncomplicated 290.40 and Lumbago 724.2 [facility] [address], [place] [address]- 2730 Nov, [facility] [id number] [place] [address] 45216- 2118 Nov, [facility] [address], [place] [address]- 4268 Nov, [facility] [address], [place] [address]- 1014 Oct, [facility] [address], [place] [address]- 7786 Oct, [facility] [address] [id number] [place] [address] 98410- 8233 Oct, [facility] [address], [place] [address]- 1646 Oct, COPD (chronic obstructive pulmonary disease) 496 and Hyperlipidemia 272.4 [facility] [address], [place] [address]- 8774 Oct, Major depression, recurrent 296.30 and Anxiety, generalized 300.02 [facility] [id number] [address]- 6249 Oct, [facility] [address], [place] [address]- 0166 Oct, [facility] [address], [place] [address]- 0640 Oct, [facility] [address], [place] [address]- 9682 Sep, Lumbago 724.2 and Anxiety state, unspecified 300.00 [facility] [id number], [place] [address]- 7313 Sep, [facility] [address], [place] [address]- 6652 Sep, [facility] [address], [place] [address]- 0258 August, [facility] [id number] [address]- 9031 August, Major depression, recurrent 296.30 ; Anxiety, generalized 300.02 and No condition on [place] II V71.09 [facility] [id number] [address]- 8485 August, [facility] [address] [facility] [id number] [place]- 9436 August, [facility] [id number], [place] [address]- 6279 Jul, [facility] [address] [facility] [id number] [place] [address]- 5157 Jul, [facility] [address] [address]- 2112 Jul, [facility] [id number] [address]- 9774 Jun, [facility] [address] [address]- 0349 Jun, [facility] [id number] [address]- 3220 Jun, [facility] [address] [address]- 3625 Jun, [facility] [id number] [address]- 8061 Jun, [facility] [address] [address]- 4709 Jun, [facility] [id number] [address]- 0040 23 Jun, 2014 [facility] [id number] 0803 17 Jun, 2014 [facility] [address] [facility] [id number] 3314 Jun, [facility] [id number] 8664 Jun, [facility] [place] [facility] [address] [id number] [place] [address]- 3585 10 Jun, 2014 [facility] [place] [facility] [address] [id number] [place] [address]- 4196 10 Jun, 2014 [facility] [place] [facility] [address] [id number] [place] [address]- 0686 07 Jun, 2014 [facility] [place] [facility] [address] [id number] [place] [address]- 3619 07 Jun, 2014 [facility] [place] [facility] [address] [id number] [place] [address]- 4927 Jun, [facility] [place] [facility] [address] [id number] [place] [address]- 7823 Jun, 2014 [facility] [place] [facility] [address] [id number] [place] [address]- 4197 May, [facility] [place] [facility] [address] [id number] [place] [address]- 0704 May, 2014 [facility] [place] [facility] [address] [id number] [place] [address]- 5925 May, [facility] [place] [facility] [address] [facility] [id number] [place] [address]- 3309 May, 2014 [facility] [place] [facility] [address] [facility] [id number] [place] [address]- 2327 May, 2014 [facility] [place] [facility] [address] [id number] [place] [address]- 1143 May, 2014 [facility] [place] [facility] [address] [id number] [place] [address]- 2540 May, 2014 [facility] [place] [facility] [address] [id number] [place] [address]- 7067 12 May, 2014 [facility] [place] [facility] [address] [facility] [id number] [place] [address]- 6248 May, 2014 [facility] [place] [facility] [address] [facility] [id number] [place] [address]- 8990 May, 2014 [facility] [place] [facility] [address] [id number] [place] [address]- 4346 May, 2014 [facility] [place] [facility] [address] [id number] [place] [address]- 9166 May, 2014 [facility] [place] [facility] [address] [id number] [place] [address]- 2886 May, 2014 [facility] [place] [facility] [address] [id number] [place] [address]- 4346 May, [facility] [place] [facility] [address] [id number] [place] [address]- 5456 Apr, [facility] [place] [facility] [address] [id number] [place] [address]- 0699 Apr, [facility] [place] [facility] [address] [id number] [place] [address]- 9276 Apr, [facility] [place] [facility] [address] [id number] [place] [address]- 8386 Apr, [facility] [place] [facility] [address] [id number] [place] [address] Apr, [facility] [place] [facility] [address] [id number] [place] [address] Apr, [facility] [place] [facility] [address] [id number] [place] [address] Apr, [facility] [place] [facility] [address] [id number] [place] [address] Apr, [facility] [place] [facility] [address] [id number] [place] [address] Apr, [facility] [place] [facility] [address] [id number] [place] [address] Apr, [facility] [place] [facility] [address] [id number] [place] [address] Apr, [facility] [place] [facility] [address] [id number] [place] [address] Apr, [facility] [place] [facility] [address] [id number] [place] [address] Mar, [facility] [place] [facility] [address] [id number] [place] [address] 31 Mar, 2014 [facility] [place] [facility] [address] [id number] [place] [address] 30 Mar, 2014 [facility] [place] [facility] [address] [id number] [place] [address] 30 Mar, 2014 [facility] [place] [facility] [address] [id number] [place] [address] Mar, [facility] [place] [facility] [address] [id number] [place] [address] Mar, [facility] [place] [facility] [address] [id number] [place] [address] Mar, [facility] [place] [facility] [address] [id number] [place] [address] 19 Mar, 2014 [facility] [place] [facility] [address] [id number] [place] [address] 15 Mar, 2014 [facility] [place] [facility] [address] [id number] [place] [address]- [address] 15 Mar, 2014 [facility] [place] [facility] [address] [id number] [place] [address]- [address] 15 Mar, 2014 [facility] [place] [facility] [address] [id number] [place] [address] 15 Mar, 2014 [facility] [place] [facility] [address] [id number] [place] [address] 15 Mar, 2014 [facility] [place] [facility] [address] [id number] [place] [address] 15 Mar, 2014 [facility] [place] [facility] [address] [id number] [place] [address] Mar, [facility] [place] [facility] [address] [id number] [place] [address] Mar, [facility] [place] [facility] [address] [id number] [place] [address] Mar, [facility] [place] [facility] [address] [id number] [place] [address] Mar, [facility] [place] [facility] [address] [id number] [place] [address] Mar, [facility] [place] [facility] [address] [id number] [place] [address] Mar, [facility] [place] [facility] [address] [id number] [place] [address] Feb, [facility] [place] [facility] [address] [id number] [place] [address] Feb, [facility] [place] [facility] [address] [id number] [place] [address] 6646 Feb, [facility] [place] [facility] [address] [id number] [place] [address] 5892 Feb, [facility] [place] [facility] [address] [id number] [place] [address] 7216 Feb, [facility] [place] [facility] [address] [id number] [place] [address] 7807 Feb, [facility] [place] [facility] [address] [id number], [place] [address] 1321 Feb, [facility] [place] [facility] [address] [id number] [place] [address]- 2474 Feb, [facility] [place] [facility] [address] [id number] [place] [address]- 2201 Feb, [facility] [place] [facility] [address] [id number], [place] [address] 9636 Feb, [facility] [place] [facility] [address] [id number] [place] [address]- 0709 Feb, [facility] [place] [facility] [address] [id number] [place] [address] Feb, [facility] [place] [facility] [address] [id number] [place] [address] Feb, [facility] [place] [facility] [address] [id number] [place] [address]- 8771 Feb, [facility] [place] [facility] [address] [id number] [place] [address]- 2005 Feb, [facility] [place] [facility] [address] [id number] [place] [address]- 1578 Feb, [facility] [place] [facility] [address] [id number] [place] [address]- 7727 Feb, [facility] [place] [facility] [address] [id number] [place] [address]- 5389 Jan, [facility] [place] [facility] [address] [id number] [place] [address]- 2510 Jan, [facility] [place] [facility] [address] [id number] [place] [address]- 8337 Jan, [facility] [place] [facility] [address] [id number] [place] [address]- 8503 Jan, [facility] [place] [facility] [address] [id number] [place] [address]- 1603 Jan, [facility] [place] [facility] [address] [id number] [place] [address]- 2437 Jan, [facility] [place] [facility] [address] [id number] [place] [address]- 0720 16 Jan, 2014 [facility] [place] [facility] [address] [id number] [place] [address] 16 Jan, 2014 [facility] [place] [facility] [address] [id number] [place] [address]- 1843 Jan, [facility] [place] [facility] [address] [id number] [place] [address]- 7959 Jan, [facility] [place] [facility] [address] [id number] [place] [address]- 7835 Jan, [facility] [place] [facility] [address] [id number] [place] [address]- 7798 Dec, [facility] [place] [facility] [address] [id number] [place] [address]- 6687 Dec, [facility] [place] [facility] [address] [id number] [place] [address]- 5567 Nov, [facility] [place] [facility] [address] [id number] [place] [address]- 0297 Nov, [facility] [place] [facility] [address] [id number] [place] [address]- 5145 Nov, [facility] [place] [facility] [address] [id number] [place] [address]- 4039 Nov, [facility] [place] [facility] [address] [id number] [place] [address]- 0831 Nov, [facility] [place] [facility] [address] [id number] [place] [address]- 6278 Nov, [facility] [place] [facility] [address] [id number], [place] [address] 6689 Nov, [facility] [place] [facility] [address] [id number], [place] [address]- 5875 Oct, [facility] [place] [facility] [address] [id number] [place] [address]- 4929 Oct, [facility] [place] [facility] [address] [id number], [place] [address]- 7346 Oct, [facility] [place] [facility] [address] [id number] [place] [address] Oct, [facility] [place] [facility] [address] [id number] [place] [address]- 0185 30 Sep, 2013 [facility] [place] [facility] [address] [id number] [place] [address]- 3342 Sep, [facility] [place] [facility] [address] [id number] [place] [address]- 3574 Sep, [facility] [place] [facility] [address] [id number] [place] [address]- 3669 Sep, [facility] [place] [facility] [address] [id number] [place] [address]- 8142 Sep, [facility] [place] [facility] [address] [id number] [place] [address]- 6312 Sep, [facility] [place] [facility] [address] [id number] [place] [address]- 7015 Sep, [facility] [place] [facility] [address] [id number] [place] [address]- 6485 Sep, [facility] [place] [facility] [address] [id number] [place] [address]- 7144 Sep, [facility] [place] [facility] [address] [id number] [place] [address]- 5813 Sep, [facility] [place] [facility] [address] [id number] [place] [address]- 6425 Sep, [facility] [place] [facility] [address] [id number] [place] [address]- 3155 Sep, [facility] [place] [facility] [address] [id number] [place] [address]- 6514 Sep, [facility] [place] [facility] [address] [id number] [place] [address]- 2892 Sep, [facility] [place] [facility] [address] [id number] [place] [address]- 3638 August, [facility] [place] [facility] [address] [id number] [place] [address]- 0836 August, [facility] [place] [facility] [address] [id number] [place] [address]- 0062 August, [facility] [address] [id number] [place] [address]- 7099 August, [facility] [address] [id number] [place] [address]- 5594 August, [facility] [address] [id number] [place] [address]- 7966 August, [facility] [address] [id number] [place] [address]- 6087 August, [facility] [address] [id number] [place] [address]- 7948 August, [facility] [address] [id number] [place] [address]- 2735 August, [facility] [address] [id number] [place] [address]- 0432 August, [facility] [address] [id number] [place] [address]- 3233 August, [facility] [address] [id number] [place] [address]- 8107 August, [facility] [address] [id number] [place] [address]- 2351 August, [facility] [address] [id number] [place] [address]- 7680 August, [facility] [place] [facility] [address] [id number] [place] [address]- 7182 August, [facility] [place] [facility] [address] [id number] [place] [address]- 5454 August, [facility] [place] [facility] [address] [id number] [place] [address]- 9205 August, [facility] [place] [facility] [address] [id number] [place] [address]- 5656 August, [facility] [place] [facility] [address] [id number] [place] 4614 August, [facility] [place] [facility] [address] [id number] [place] [address]- 4559 Jul, [facility] [place] [facility] [address] [id number] [place] [address]- 4585 Jul, [facility] [place] [facility] [address] [id number] [place] [address]- 0704 Jul, [facility] [place] [facility] [address] [id number] [place] [address]- 1522 Jul, [facility] [place] [facility] [address] [id number] [place] [address]- 9427 Jun, [facility] [place] [facility] [address] [id number] [place] [address]- 8664 Jun, [facility] [place] [facility] [address] [id number] [place] [address]- 8682 Jun, [facility] [place] [facility] [address] [id number] [place] [address]- 5493 Jun, [facility] [place] [facility] [address] [id number] [place] [address]- 1980 Jun, [facility] [place] [facility] [address] [id number] [place] [address]- 7197 Jun, [facility] [place] [facility] [address] [id number] [place] [address]- 6793 Jun, [facility] [place] [facility] [address] [id number] [place] [address]- 9688 Jun, [facility] [place] [facility] [address] [id number] [place] [address]- 3743 Jun, [facility] [place] [facility] [address] [id number] [place] [address]- 1258 Jun, [facility] [place] [facility] [address] [id number] [place] [address]- 0006 May, [facility] [place] [facility] [address] [id number] [place] [address]- 8356 May, [facility] [place] [facility] [address] [id number] [place] [address]- 4726 May, [facility] [place] [facility] [address] [id number] [place] [address]- 9251 May, [facility] [place] [facility] [address] [id number] [place] [address]- 254 May, [facility] [place] [facility] [address] [id number] [place] [address]- 4666 May, [facility] [place] [facility] [address] [facility] [id number] [place] [address]- 1463 May, [facility] [place] [facility] [address] [facility] [id number] [place] [address]- 8086 May, [facility] [place] [facility] [address] [id number] [place] [address]- 2114 May, [facility] [place] [facility] [address] [facility] [id number] [place] [address]- 2516 May, [facility] [place] [facility] [address] [facility] [id number] [place] [address]- 7057 18 May, 2013 [facility] [place] [facility] [address] [facility] [id number] [place] [address]- 3536 17 May, 2013 [facility] [place] [facility] [address] [facility] [id number] [place] [address]- 2546 May, [facility] [place] [facility] [address] [id number] [place] [address]- 8427 May, [facility] [place] [facility] [address] [facility] [id number] [place] [address]- 8516 10 May, 2013 [facility] [place] [facility] [address] [facility] [id number] [place] [address]- 6722 07 May, 2013 [facility] [address] [id number] [place] [address]- 8164 07 May, 2013 [facility] [address] [id number] [place] [address]- 8217 17 Apr, 2013 [facility] [address] [id number] [place] [address]- 6523 Apr, [facility] [address] [id number] [place] [address]- 3732 Apr, [facility] [address] [id number] [place] [address]- 6980 Apr, [facility] [address] [id number] [place] [address]- 7195 Apr, [facility] [address] [id number] [place] [address]- 4662 Apr, [facility] [address] [id number] [place] [address]- 6736 Apr, [facility] [address] [id number] [place] [address]- 1956 Mar, [facility] [address] [id number] [place] [address]- 1087 Mar, [facility] [address] [id number] [place] [address]- 5266 Mar, [facility] [address] [id number] [place] [address]- 5642 Mar, [facility] [address] [id number] [place] [address]- 1213 Mar, [facility] [address] [id number] [place] [address]- 0236 Mar, [facility] [address] [id number] [place] [address]- 2905 Mar, [facility] [place] [facility] [address] [id number] [place] [address]- 5519 Mar, [facility] [place] [facility] [address] [id number] [place] [address]- 0308 Mar, [facility] [place] [facility] [address] [id number] [place] [address]- 4479 Mar, [facility] [place] [facility] [address] [id number] [place] [address]- 4797 Mar, [facility] [address] [id number] [place] [address]- 2898 Feb, [facility] [place] [facility] [address] [id number] [place] [address]- 5226 Feb, [facility] [address] [id number] [place] [address]- 3439 Feb, [facility] [address] [id number] [place] [address]- 1987 20 Feb, 2013 [facility] [place] [facility] [address] [id number] [place] [address]- 6539 Feb, [facility] [place] [facility] [address] [id number] [place] [address]- 7239 19 Feb, 2013 [facility] [place] [facility] [address] [id number] [place] [address]- 6298 15 Feb, 2013 [facility] [place] [facility] [address] [id number], [place] [address]- 6121 14 Feb, 2013 [facility] [place] [facility] [address] [id number] [place] [address]- 7509 14 Feb, 2013 [facility] [place] [facility] [address] [id number], [place] [address]- 6830 13 Feb, 2013 [facility] [place] [facility] [address] [id number], [place] [address]- 3371 13 Feb, 2013 [facility] [place] [facility] [address] [id number], [place] [address]- 4650 Feb, [facility] [place] [facility] [address] [id number] [place] [address]- 9630 Feb, [facility] [place] [facility] [address] [id number] [place] [address]- 3196 Feb, [facility] [place] [facility] [address] [id number] [place] [address]- 5229 Feb, [facility] [place] [facility] [address] [id number] [place] [address]- 9530 Feb, [facility] [place] [facility] [address] [id number] [place] [address]- 6397 Jan, [facility] [place] [facility] [address] [id number] [place] [address]- 2803 Jan, [facility] [place] [facility] [address] [id number] [place] [address]- 5704 Jan, [facility] [place] [facility] [address] [id number] [place] [address]- 5273 Jan, [facility] [place] [facility] [address] [id number] [place] [address]- 0367 Jan, [facility] [place] [facility] [address] [id number] [place] [address]- 1879 Jan, [facility] [place] [facility] [address] [id number], [place] [address]- 5164 Jan, [facility] [place] [facility] [address] [id number], [place] [address]- 2208 Jan, [facility] [place] [facility] [address] [id number] [place] [address]- 5483 10 Jan, 2013 [facility] [place] [facility] [address] [id number] [place] [address]- 5551 27 Dec, 2012 [facility] [place] [facility] [address] [id number] [place] [address]- 3267 20 Dec, 2012 [facility] [place] [facility] [address] [id number] [place] [address]- 1169 19 Dec, 2012 [facility] [place] [facility] [address] [id number] [place] [address]- 2618 10 Dec, 2012 [facility] [place] [facility] [address] [id number] [place] [address]- 6236 04 Dec, 2012 [facility] [place] [facility] [address] [id number] [place] [address]- 9271 03 Dec, 2012 [facility] [place] [facility] [address] [id number] [place] [address]- 9261 Nov, [facility] [place] [facility] [address] [id number] [place] [address]- 4208 Nov, [facility] [place] [facility] [address] [id number] [place] [address]- 9536 Nov, [facility] [place] [facility] [address] [id number] [place] [address]- 8355 Nov, [facility] [place] [facility] [address] [id number] [place] [address]- 7051 Nov, [facility] [place] [facility] [address] [id number] [place] [address]- 8563 Nov, [facility] [place] [facility] [address] [id number] [place] [address]- 8124 Nov, [facility] [place] [facility] [address] [id number] [place] [address]- 4697 Nov, [facility] [place] [facility] [address] [id number] [place] [address]- 2548 14 Nov, 2012 [facility] [place] [facility] [address] [id number] [place] [address]- 4624 Nov, [facility] [place] [facility] [address] [id number] [place] [address]- 2546 Oct, [facility] [place] [facility] [address] [id number] [place] [address]- 5653 Oct, [facility] [place] [facility] [address] [id number] [place] [address]- 8309 Oct, [facility] [place] [facility] [address] [id number] [place] [address]- 1331 Oct, [facility] [place] [facility] [address] [id number] [place] [address]- 5049 Oct, [facility] [place] [facility] [address] [id number] [place] [address]- 0225 Oct, [facility] [place] [facility] [address] [id number] [place] [address]- 3086 Oct, [facility] [place] [facility] [address] [id number] [place] [address]- 1072 Oct, [facility] [place] [facility] [address] [id number] [place] [address]- 5780 Sep, [facility] [place] [facility] [address] [id number] [place] [address]- 7134 Sep, [facility] [place] [facility] [address] [id number] [place] [address]- 5821 Sep, [facility] [place] [facility] [address] [id number] [place] [address]- 9367 Sep, [facility] [place] [facility] [address] [id number] [place] [address]- 2855 Sep, [facility] [place] [facility] [address] [id number], [place] [address]- 9575 Sep, [facility] [place] [facility] [address] [id number] [place] [address]- 4509 Sep, [facility] [place] [facility] [address] [id number] [place] [address]- 3579 Sep, [facility] [place] [facility] [address] [id number] [place] [address]- 7065 August, [facility] [place] [facility] [address] [id number] [place] [address]- 9501 August, [facility] [address] [id number] [place] [address]- 4932 August, [facility] [address] [id number] [place] [address]- 9955 August, [facility] [address] [id number] [place] [address]- 0613 August, [facility] [address] [id number] [place] [address]- 6057 Jul, [facility] [address] [id number] [place] [address]- 2123 Jul, [facility] [address] [id number] [place] [address]- 1236 Jul, [facility] [address] [id number] [place] [address]- 6996 Jul, [facility] [address] [id number] [place] [address] Jul, [facility] [address] [id number] [place] [address] 18 Jun, 2012 [facility] [address] [id number] [place] [address] 18 Jun, 2012 [facility] [address] [id number] [place] [address] 15 Jun, 2012 [facility] [address] [id number] [place] [address] 14 Jun, 2012 [facility] [place] [facility] [address] [id number] [place] [address] 12 Jun, 2012 [facility] [place] [facility] [address] [id number] [place] [address] 08 Jun, 2012 [facility] [address] [id number] [place] [address] 08 Jun, 2012 [facility] [address] [id number] [place] [address] 2008 Jun, [facility] [address] [id number] [place] [address] Jun, [facility] [address] [id number] [place] [address] 100[address] May, [facility] [address] [id number] [place] [address] May, [facility] [address] [id number] [place] [address] May, [facility] [address] [id number] [place] [address]36 May, [facility] [address] [id number] [place] [address] 98[address] Apr, [facility] [address] [id number] [place] [address] 8499 Apr, [facility] [address] [id number] [place] [address] Apr, [facility] [address] [id number] [place] [address] Apr, [facility] [address] [id number] [place] [address] 1134 Apr, [facility] [address] [id number] [place] [address]198 Apr, [facility] [address] [id number] [place] [address]- [address] Apr, [facility] [address] [id number] [place] [address] Mar, [facility] [place] [id number] Mar, [facility] [address] [id number] [place] [address] Mar, [facility] [place] [facility] [address] [id number] [place] [address] 46[address] Mar, [facility] [place] [facility] [address] [id number] [place] [address] Mar, [facility] [place] [facility] [address] [id number] [place] [address] Mar, [facility] [place] [facility] [address] [id number] [place] [address] 88[address] Mar, [facility] [place] [facility] [address] [id number] [place] [address] Mar, [facility] [place] [facility] [address] [id number] [place] [address] Mar, [facility] [place] [facility] [address] [id number] [place] [address] Mar, [facility] [place] [facility] [address] [id number] [place] [address] 93[address] Mar, [facility] [place] [facility] [address] [id number] [place] [address] Mar, [facility] [place] [facility] [address] [id number] [place] [address] Mar, [facility] [place] [facility] [address] [id number] [place] [address] Mar, [facility] [place] [facility] [address] [id number] [address] Mar, [facility] [place] [facility] [address] [id number] [place] [address] Mar, [facility] [place] [facility] [address] [id number] [place] [address] 65[address] Mar, [facility] [place] [facility] [address] [id number] [place] [address] Feb, [facility] [place] [facility] [address] [id number] [place] [address] 1413 Feb, [facility] [place] [facility] [address] [id number] [place] [address] 29[address] Feb, [facility] [place] [facility] [address] [id number] [place] [address]- [address] Feb, [facility] [place] [facility] [address] [id number] [place] [address] Feb, [facility] [place] [facility] [address] [id number] [place] [address] 4843 Feb, [facility] [place] [facility] [address] [id number] [place] [address]- [address]461 Feb, [facility] [place] [facility] [address] [id number] [place] [address]- 9[address] Feb, [facility] [place] [facility] [address] [id number] [place] [address]- 3065 Feb, [facility] [place] [facility] [address] [id number] [place] [address]- 7026 Feb, [facility] [place] [facility] [address] [id number] [place] [address]- [address] Feb, [facility] [place] [facility] [address] [id number] [place] [address]- 265[address] Feb, [facility] [place] [facility] [address] [id number] [place] [address]- [address]103 Feb, [facility] [place] [facility] [address] [id number], [place] [address] Feb, [facility] [place] [facility] [address] [id number] [place] [address]- 2983 Feb, [facility] [place] [facility] [address] [id number] [place] [address]- 7447 Feb, [facility] [place] [facility] [address] [id number], [place] [address] Jan, [facility] [place] [facility] [address] [id number] [place] [address]- 5114 Jan, [facility] [place] [facility] [address] [id number] [place] [address]- 4[address] Jan, [facility] [place] [facility] [address] [id number] [place] [address]- 4291 Jan, [facility] [place] [facility] [address] [id number] [place] [address]- [address]558 Jan, [facility] [place] [facility] [address] [id number] [place] [address]- 2785 Jan, [facility] [place] [facility] [address] [id number] [place] [address]- 6871 Jan, [facility] [place] [facility] [address] [id number] [place] [address]- 9474 Jan, [facility] [place] [facility] [address] [id number] [place] [address]- 5547 Jan, [facility] [place] [facility] [address] [id number] [place] [address]- 7688 Jan, [facility] [place] [facility] [address] [id number] [place] [address]- 3149 Jan, [facility] [place] [facility] [address] [id number] [place] [address]- 3738 Jan, [facility] [place] [facility] [address] [id number], [place] [address]- [address] Jan, [facility] [place] [facility] [address] [id number] [place] [address]- 2623 Jan, [facility] [place] [facility] [address] [id number] [place] [address]- 3313 Jan, [facility] [place] [facility] [address] [id number] [place] [address]- 2951 Jan, [facility] [place] [facility] [address] [id number], [place] [address]- [address]36 04 Jan, 2012 [facility] [place] [facility] [address] [id number] [place] [address]- 5286 21 Dec, 2011 [facility] [place] [facility] [address] [id number] [place] [address]- 5826 20 Dec, 2011 [facility] [place] [facility] [address] [id number] [place] [address] 2546 18 Dec, 2011 [facility] [place] [facility] [address] [address] [id number] [place] [address] 18 Dec, 2011 [facility] [place] [facility] [address] [id number] [place] [address] 2546 10 Dec, 2011 [facility] [place] [facility] [address] [id number] [place] [address] 10 Dec, 2011 [facility] [place] [facility] [address] [id number] [place] [address] 10 Dec, 2011 [facility] [place] [facility] [address] [id number] [place] [address] 07 Dec, 2011 [facility] [place] [facility] [address] [id number] [place] [address] 30 Nov, 2011 [facility] [place] [facility] [address] [id number] [place] [address] Nov, [facility] [place] [facility] [address] [id number] [place] [address] Nov, [facility] [place] [facility] [address] [id number] [place] [address]47 Nov, [facility] [place] [facility] [address] [id number] [place] [address] 2546 Nov, [facility] [place] [facility] [address] [id number] [place] [address] Nov, [facility] [place] [facility] [address] [id number] [place] [address]49 30 Oct, 2011 [facility] [place] [facility] [address] [id number] [place] [address] 7369 30 Oct, 2011 [facility] [address] [id number] [place] [address] Oct, [facility] [place] [facility] [address] [id number] [place] [address] 37[address] Oct, [facility] [address] [id number] [place] [address] 2536 Oct, [facility] [place] [facility] [address] [id number] [place] [address] Oct, [facility] [address] [id number] [place] [address] 8014 Oct, [facility] [place] [facility] [address] [id number] [place] [address]- 1421 Sep, [facility] [place] [facility] [address] [id number] [place] [address] 8398 Sep, [facility] [place] [facility] [address] [id number] [place] [address]- 0967 Sep, [facility] [place] [facility] [address] [id number] [place] [address] 30[address] Sep, [facility] [address] [id number] [place] [address]- [address] Sep, [facility] [place] [facility] [address] [id number] [place] [address]- [address]47 15 Sep, 2011 [facility] [place] [facility] [address] [id number] [place] [address]- [address]23 14 Sep, 2011 [facility] [place] [facility] [address] [id number] [place] [address]- 4160 11 Sep, 2011 [facility] [place] [facility] [address] [id number] [place] [address]- [address]77 05 Sep, 2011 [facility] [place] [facility] [address] [id number] [place] [address]- 4[address] Sep, [facility] [address] [id number] [place] [address] August, [facility] [place] [facility] [address] [id number] [place] [address] 5886 August, [facility] [place] [facility] [address] [id number] [place] [address]- 0922 August, [facility] [place] [facility] [address] [id number] [place] [address]- 8196 August, [facility] [address] [id number] [place] [address] 3872 August, [facility] [place] [facility] [address] [id number] [place] [address]- 0647 Jul, [facility] [place] [facility] [address] [id number] [place] [address]- 5124 Jul, [facility] [address] [id number] [place] [address]- 4846 Jul, [facility] [place] [facility] [address] [id number] [place] [address] 6563 Jul, [facility] [place] [facility] [address] [id number] [place] [address]- 5647 Jul, [facility] [place] [facility] [address] [id number] [place] [address] 8544 Jul, [facility] [place] [facility] [address] [id number], [place] [address] Jul, [facility] [place] [facility] [address] [id number] [place] [address]- 0947 Jun, [facility] [place] [facility] [address] [id number] [place] [address]- 4384 Jun, [facility] [place] [facility] [address] [id number] [place] [address]- 9258 Jun, [facility] [place] [facility] [address] [id number] [address] Jun, [facility] [place] [facility] [address] [id number] [place] [address]- 2097 Jun, [facility] [place] [facility] [address] [id number] [place] [address]- 1786 May, [facility] [place] [facility] [address] [id number] [place] [address]- 5866 May, [facility] [place] [facility] [address] [id number] [place] [address]- 0410 May, [facility] [place] [facility] [address] [id number] [place] [address]- 9496 May, [facility] [place] [facility] [address] [id number] [place] [address]- 6098 May, [facility] [place] [facility] [address] [facility] [id number] [place] [address]- 9918 May, [facility] [place] [facility] [address] [id number] [place] [address]- 6342 Apr, [facility] [place] [facility] [address] [facility] [id number] [place] [address]- 5351 Mar, [facility] [place] [facility] [address] [facility] [id number] [place] [address]- 7991 Feb, [facility] [place] [facility] [address] [id number] [place] [address] 2545 Feb, [facility] [place] [facility] [address] [id number] [place] [address]- 2544 Feb, [facility] [place] [facility] [address] [id number] [place] [address]- 8503 Feb, [facility] [place] [facility] [address] [facility] [id number] [place] [address]- 7639 Jan, [facility] [place] [facility] [address] [id number] [place] [address]- 1035 Jan, [facility] [place] [facility] [address] [id number] [place] [address]- 3049 26 Jan, 2011 [facility] [address] [id number] [place] 24 Jan, 2011 [facility] [address] [id number] [place] [address]- 4137 14 Jan, 2011 [facility] [address] [id number] [place] [address]- 3680 19 Dec, 2010 [facility] [address] [id number] [place] [address]- 5820 Oct, [facility] [address] [id number] [place] [address]- 9921 August, [facility] [address] [id number] [place] [address]- 9655 29 Mar, 2010 [facility] [address] [id number] [place] [address]- 5492 27 Mar, 2010 [facility] [address] [id number] [place] [address]- 0760 16 Mar, 2010 [facility] [address] [id number] [place] [address]- 5587 15 Mar, 2010 [facility] [address] [id number] [place] [address]- 5737 15 Mar, 2010 [facility] [place] [facility] [address] [id number] [place] [address]- 3667 08 Mar, 2010 [facility] [place] [facility] [address] [id number] [place] [address]- 8335 03 Mar, 2010 [facility] [place] [facility] [address] [id number] [place] [address]- 5042 24 Feb, 2010 [facility] [place] [facility] [address] [id number] [place] [address]- 6990 24 Feb, 2010 [facility] [place] [facility] [address] [id number], [place] [address]- 2997 15 Feb, 2010 [facility] [place] [facility] [address] [id number] [place] [address]- 3270 19 Jan, 2010 [facility] [place] [facility] [address] [id number], [place] [address]- 0360 Jan, [facility] [place] [facility] [address] [id number] [place] [address]- 3626 Jan, [facility] [place] [facility] [address] [id number], [place] [address]- 7178 Nov, [facility] [place] [facility] [address] [id number] [place] [address]- 4496 Sep, [facility] [place] [facility] [address] [id number], [place] [address]- 5155 August, [facility] [place] [facility] [address] [id number], [place] [address]- 1623 30 Mar, 2009 [facility] [place] [facility] [address] [id number], [place] [address]- 9811 Mar, [facility] [place] [facility] [address] [id number], [place] [address]- 5902 17 Feb, 2009 [facility] [place] [facility] [address] [id number], [place] [address]- 2910 Feb, [facility] [place] [facility] [address] [id number], [place] [address]- 6444 10 Feb, 2009 [facility] [place] [facility] [address] [id number], [place] [address]- 9659 10 Feb, 2009 [facility] [place] [facility] [address] [id number], [place] [address]- 5282 06 Feb, 2009 [facility] [place] [facility] [address] [id number], [place] [address]- 5961 27 Jan, 2009 [facility] [place] [facility] [address] [id number], [place] [address]- 1482 Jan, [facility] [place] [facility] [address] [id number], [place] [address] Jan, [facility] [address] [id number], [place] [address] Jan, [facility] [id number], [place] [address] Nov, [facility] [id number], [place] [address]- 3656 Sep, [facility] [id number], [place] [address]- 6600 August, [facility] [id number] [place] [address]- 267[address] Jul, [facility] [id number], [place] [address]- 3089 May, IMMUNIZATIONS No Known Immunizations SOCIAL HISTORY Never Assessed REASON FOR VISIT med refill PLAN OF CARE VITAL SIGNS MEDICATIONS Unknown [...] Knee Surgery 07/16/17 Hospitalization History [facility] [place]- left hand/wrist swelling 10/09/2017
--- OUTSIDE RECORDS SUMMARY | 2018-01-01 11:59 | XMS REPORT ---
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 Active 11356877 Problem Colon polyp K63.5 Active 51839588 Problem Bilateral low back pain without sciatica M54.5 Active 549938366 Problem Screening breast examination Z12.39 Active 921234936 Problem Postmenopausal Z78.0 Active 30790788 Problem Osteopenia M85.80 Active 571709021 Problem Cigarette nicotine dependence without complication F17.210 Active 04093291 Problem Type 2 diabetes mellitus with diabetic peripheral angiopathy without gangrene E11.51 Active 629574122 Problem Vascular dementia without behavioral disturbance F01.50 Active [id number] Problem Unspecified atherosclerosis of [place] arteries of extremities, unspecified extremity I70.209 Active 142710809005308 Problem Arthritis M19.90 Active 8805624 Problem Chronic atrial fibrillation I48.2 Active 819353841 Problem Chronic obstructive pulmonary disease with acute lower respiratory infection J44.0 Active 131652122 Problem Other chronic pancreatitis K86.1 Active 676909310 Problem Stress incontinence of urine N39.3 Active 66032070 Problem Controlled type 2 diabetes mellitus without complication, without long -term current use of insulin E11.9 Active 622710477 Problem Unspecified psychosis F29 Active 45368356 Problem Xeroderma Q80.9 Active 42514383 Problem COPD (chronic obstructive pulmonary disease) J44.9 Active 93883286 Problem Dementia without behavioral disturbance, unspecified dementia type F03.90 Active 14052366 Problem Gastroparesis K31.84 Active 268415467 Problem Type 2 diabetes mellitus with diabetic neuropathy, without long-term current use of insulin E11.40 Active 10707505 Problem Osteoporosis M81.0 Active 13553213 Problem Atherosclerosis of [place] artery of both lower extremities with intermittent claudication I70.213 Active 170047820676734 Problem Hyperlipidemia E78.5 Active 73162776 Problem Diabetic polyneuropathy associated with type 2 diabetes mellitus E11.42 Active 48182983 Problem Essential tremor G25.0 Active 26302147 Problem 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.118 Active 1644510867093 Problem Generalized anxiety disorder F41.1 Active 548963715 Problem Gastroesophageal reflux disease, esophagitis presence not specified K21.9 Active 997025392 Problem Coronary artery disease involving [place] coronary artery of [place] 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 I25.118 Active 4404901585310 Problem Postconcussion syndrome F07.81 Active 68983980 Problem Chronic pain syndrome G89.4 Active 464642216 Problem Migraine without aura and without status migrainosus, not intractable G43.009 Active 512300739 Problem Paroxysmal atrial fibrillation I48.0 Active 407591005 Problem Migraine without aura and with status migrainosus, not intractable G43.001 Active 067681264 Problem Cervicalgia M54.2 Active 4065692254657 Problem Acute exacerbation of chronic obstructive pulmonary disease (COPD) J44.1 Active 640310730 Problem Major depressive disorder, recurrent episode, moderate F33.1 Active 700116923 Problem Crohn''s disease without complication, unspecified gastrointestinal tract location K50.90 Active 55641603 Problem Chronic fatigue R53.82 Active 79833297 Problem Bipolar affective disorder, currently depressed, moderate F31.32 Active 642947634 ALLERGIES No Information ENCOUNTERS Encounter Location Date Diagnosis [id number] [facility] [id number] [address] Nov, [facility] [id number], [place] [address] Nov, [id number], [place] [address] Oct, [facility] [id number], [place] [address] Oct, Bipolar affective disorder, currently depressed, moderate F31.32 ; Vascular dementia without behavioral disturbance F01.50 and Generalized anxiety disorder F41.1 [facility] [id number] [place] [address] 88432- 9487 Oct, [facility] [id number] [place] [address] 38907- 5805 Oct, [facility] [id number] [place] [address] 60065- 4365 Oct, Edema of both legs R60.0 [facility] [id number] [place] [address] 48930- 8478 Oct, [facility] [id number] [place] [address] 33343- 8347 Sep, [facility] [id number] [place] [address] 45692- 3378 Sep, [facility] [id number] [place] [address] 05899- 9275 Sep, [facility] [id number] [place] [address] 00774- 3871 Sep, Encounter for well woman exam with routine gynecological exam Z01.419 ; Screening for STDs (sexually transmitted diseases) Z11.3 ; Screening breast examination Z12.31 and Overweight (BMI 25.0-29.9) E66.3 [facility] [address], [place] [address] Sep, [facility] [id number] [address] Sep, [facility] [id number] [place] [address] 20329- 9896 Sep, [facility] [id number] [place] [address] 70150- 1141 August, [facility] [id number], [place] [address] August, [facility] [id number], [place] [address] August, Type 2 diabetes mellitus with diabetic neuropathy, without long-term current use of insulin E11.40 and Sprain of right ankle, unspecified ligament, initial encounter S93.401A [facility] [id number], [place] [address] August, [facility] [id number] [place] [address] 75729- 1970 August, [facility] [id number] [place] [address] 03998- 4694 August, [facility] [id number] [place] [address] 88427- 2374 August, Gastroesophageal reflux disease, esophagitis presence not specified K21.9 [facility] [id number] [place] [address] 54399- 0472 August, [facility] [id number] [place] [address] 66333- 8797 August, [facility] [id number] [place] [address] 94689- 8375 August, [facility] [id number] [place] [address] 01354- 8992 August, Type 2 diabetes mellitus with diabetic neuropathy, without long-term current use of insulin E11.40 and Elevated liver enzymes R74.8 [facility] [address] [place] [address] 49200- 9267 Jul, [facility] [id number] [place] [address] 39343- 7358 Jul, Cough R05 [facility] [address] [place] [address] 07218- 7498 Jul, [facility] [address], [place] [address] 82[address] Jul, [facility] [id number] [place] [address] 85812- 0013 Jul, Bipolar affective disorder, currently depressed, moderate F31.32 ; Vascular dementia without behavioral disturbance F01.50 and Generalized anxiety disorder F41.1 [facility] [id number] [place] [address] 39908- 0540 Jul, [facility] [address] 61387- 1998 Jul, Type 2 diabetes mellitus with diabetic neuropathy, without long-term current use of insulin E11.40 and Elevated liver enzymes R74.8 [facility] [address] 65935- 9995 Jul, [facility] [id number] [place] [address] 15481- 0692 Jul, [facility] [id number] [place] [address] 57827- 6081 Jul, [facility] [id number] [place] [address] 46567- 0277 Jul, Post-menopausal Z78.0 [facility] [address] 27838- 2238 Jul, Stress incontinence of urine N39.3 [facility] [id number] [place] [address] 18380- 6797 Jul, [facility] [id number] [place] [address] 52742- 3800 Jul, [facility] [id number] [place] [address] 11025- 6212 Jul, Stress incontinence of urine N39.3 and Cough R05 [facility] [id number] [place] [address] 96990- 8825 Jul, [facility] [id number] [place] [address] 48274- 0962 Jul, [facility] [id number] [place] [address] 74320- 3416 Jul, [facility] [id number] [place] [address] 23578- 4994 Jul, Gastroesophageal reflux disease, esophagitis presence not specified K21.9 [facility] [address] [place] [address] 88985- 1049 Jun, Diabetic polyneuropathy associated with type 2 diabetes mellitus E11.42 [facility] [id number] [place] [address] 37803- 9227 Jun, Diabetic polyneuropathy associated with type 2 diabetes mellitus E11.42 ; Coronary artery disease involving [place] coronary artery of [place] 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 I25.118 and Paroxysmal atrial fibrillation I48.0 [id number] [place] [address] 62708- 1797 Jun, [id number] [place] [address] 73185- 9798 Jun, [facility] [id number] [place] [address] 58772 254 Jun, Gastroenteritis K52.9 [facility] [id number] [place] [address] 38916 2546 Jun, Gastroenteritis K52.9 [facility] [address] [place] [address] 68093 2540 Jun, [facility] [id number] [place] [address] 29446 2549 Jun, [facility] [address] [place] [address] 81469- 2737 Jun, Sprain of right ankle, unspecified ligament, initial encounter S93.401A ; Type 2 diabetes mellitus with diabetic neuropathy, without long-term current use of insulin E11.40 ; Atherosclerosis of [place] artery of both lower extremities with intermittent claudication I70.213 ; 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.118 ; Chronic atrial fibrillation I48.2 and Crohn''s disease without complication, unspecified gastrointestinal tract location K50.90 [facility] [address] [place] [address] 12928 -5816 17 Jun, 2017 Cough R05 and Chronic obstructive pulmonary disease with acute lower respiratory infection J44.0 [facility] [id number] [place] [address] 57927- 1660 Jun, [id number] [place] [address] 32640- 5739 Jun, Coughing R05 ; Unspecified atherosclerosis of [place] arteries of extremities, unspecified extremity I70.209 ; Type 2 diabetes mellitus with diabetic peripheral angiopathy without gangrene E11.51 ; Crohn''s disease without complication, unspecified gastrointestinal tract location K50.90 ; Other chronic pancreatitis K86.1 and Chronic atrial fibrillation I48.2 [facility] [id number] [place] [address] 61289 -5364 Jun, [address] [address] [id number] [place] [address] 75006- 7841 Jun, Bipolar affective disorder, currently depressed, moderate F31.32 ; Vascular dementia without behavioral disturbance F01.50 and Generalized anxiety disorder F41.1 [address] [id number] [place] [address] 11081- 3292 May, Generalized anxiety disorder F41.1 [place] [id number] [place] [address] 00191- 6927 May, [place] [id number] [place] [address] 92578- 6870 May, [place] [id number] [place] [address] 92533- 2646 May, Coughing R05 [address] [id number] [place] [address] 12213- 0740 09 May, 2017 [id number] [place] [address] 43466- 8004 May, Bipolar affective disorder, currently depressed, moderate F31.32 ; Vascular dementia without behavioral disturbance F01.50 and Generalized anxiety disorder F41.1 [place] [id number] [place] [address] 52311- 2867 Apr, Generalized anxiety disorder F41.1 [address] [id number] [place] [address] 11956- 4920 Apr, [address] [id number] [place] [address] 71869- 6625 Apr, Vascular dementia without behavioral disturbance F01.50 ; Generalized anxiety disorder F41.1 and Bipolar affective disorder, currently depressed, moderate F31.32 [id number] [place] [address] 01506- 2451 Apr, Generalized anxiety disorder F41.1 [facility] [id number] [place] [address] 42908 -4039 Apr, Cough R05 and Acute exacerbation of chronic obstructive pulmonary disease (COPD) J44.1 [address] [id number] [place] [address] 04829- 0507 Apr, [facility] [id number] [place] [address] 49099 -7567 Mar, Cough R05 and Cigarette nicotine dependence without complication F17.210 [place] [id number] [place] [address] 13652- 6092 Mar, [address] [id number] [place] [address] 44302- 5561 Feb, Generalized anxiety disorder F41.1 ; Major depressive disorder, recurrent episode, moderate F33.1 ; Vascular dementia without behavioral disturbance F01.50 and Unspecified psychosis F29 [place] [id number] [place] [address] 58963- 5292 Feb, [place] [id number] [place] [address] 34140- 4836 Feb, [address] [id number] [place] [address] 50515- 1285 Feb, Generalized anxiety disorder F41.1 [place] [id number] [place] [address] 84132- 4931 Feb, Generalized anxiety disorder F41.1 [address] 75867- 9535 Feb, Dizziness R42 ; Chronic fatigue R53.82 ; Postconcussion syndrome F07.81 ; Fall, initial encounter W19.XXXA and Disorientation R41.0 [address] [address] 46964- 2056 Feb, Postconcussion syndrome F07.81 ; Injury of head, initial encounter S09.90XA ; Fall, initial encounter W19.XXXA ; Disorientation R41.0 and Acute cystitis with hematuria N30.01 [address] [address] 01012- 0890 Jan, Gastroesophageal reflux disease, esophagitis presence not specified K21.9 ; Post-menopausal Z78.0 and Migraine without aura and without status migrainosus, not intractable G43.009 [place] [id number] [place] [address] 99124- 1100 Jan, [place] [id number] [place] [address] 10928- 7156 Jan, Generalized anxiety disorder F41.1 ; Major depressive disorder, recurrent episode, moderate F33.1 ; Vascular dementia without behavioral disturbance F01.50 and Unspecified psychosis F29 [address] [address] 33669- 5754 Jan, Pneumonia of left lower lobe due to infectious organism J18.1 [place] [id number] [place] [address] 46519- 5936 Jan, Migraine without aura and with status migrainosus, not intractable G43.001 [facility] [address], [place] [address] 04 Jan, 2017 Migraine without aura and without status migrainosus, not intractable G43.009 [facility] [address] [place] [address] 11581- 6882 19 Dec, 2016 Hematoma T14.8 [facility] [id number] [place] [address] 22771- 6620 Dec, [facility] [id number] [place] [address] 69748 -3284 Nov, Fatigue, unspecified type R53.83 [place] [id number] [place] [address] 38853- 4438 Nov, Scabies B86 and Coronary artery disease involving [place] coronary artery of [place] 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 I25.118 [place] [id number] [place] [address] 96650- 2898 Nov, [facility] [id number] [place] [address] 69545- 0212 Nov, [place] [id number] [place] [address] 18003- 1696 Oct, [place] [id number] [place] [address] 33610- 7542 Oct, Generalized anxiety disorder F41.1 and Major depressive disorder, recurrent episode, moderate F33.1 [facility] [address] [place] [address] 39948- 3116 Oct, Cramp of both lower extremities R25.2 [place] [id number] [place] [address] 36927- 6586 Oct, Leg cramps R25.2 [place] [id number] [place] [address] 81303- 6687 Oct, Chronic pain syndrome G89.4 [place] [id number], [place] [address]- 4135 17 Oct, 2016 [facility] [address] [place] [address] 03830- 9367 14 Oct, 2016 [facility] [id number] [place] [address] 45330- 0780 11 Oct, 2016 Routine gynecological examination Z01.419 and Screening for breast cancer Z12.31 [place] [id number] [place] [address] 41226- 1064 28 Sep, 2016 Diarrhea R19.7 [place] [id number] [place] [address] 21776- 2217 Sep, Back pain M54.9 [place] [id number] [place] [address] 38916- 6941 Sep, [place] [id number] [place] [address] 56410- 0222 Sep, [facility] [id number] [place] [address] 97927 -0739 August, Xeroderma Q80.9 [place] [id number] [place] [address] 72142- 6142 August, Dementia without behavioral disturbance, unspecified dementia type F03.90 [place] [id number] [place] [address] 53205- 8597 August, Chronic pain syndrome G89.4 [place] [id number] [place] [address] 43154- 0034 August, [facility] [id number] [place] [address] 30959- 3694 August, Hyperlipidemia E78.5 ; Other fatigue R53.83 and Other specified hypotension I95.89 [facility] [address], [place] [address] August, Dysuria R30.0 ; Other fatigue R53.83 and Other specified hypotension I95.89 [facility] [id number] [place] [address] 66154- 3529 August, [facility] [address] 71877- 3130 Jul, Pain in left knee M25.562 and Gastroenteritis K52.9 [facility] [address] 68354- 0426 Jul, [facility] [address] 81765- 9162 Jul, Diarrhea R19.7 [facility] [address] 96476 -6198 Jul, Spider bite, accidental or unintentional, initial encounter T63.301A [place] [address] 97101- 5712 Jul, Primary osteoarthritis of right knee M17.11 and Arthritis M19.90 [facility] [address] 33912- 5202 Jul, Generalized anxiety disorder F41.1 and Major depressive disorder, recurrent episode, moderate F33.1 [facility] [id number] [place] [address] 03941- 4832 Jul, Type 2 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 and Temporal headache R51 [facility] [id number] [place] [address] 17261- 8510 Jul, Back pain M54.9 [facility] [id number] [place] [address] 81857- 3360 Jul, [facility] [address] 90347- 7574 Jul, [facility] [id number] [place] [address] 51079- 8027 Jun, Nausea R11.0 [facility] [address] [place] [address] Jun, Acute suppurative otitis media of both ears without spontaneous rupture of tympanic membranes, recurrence not specified H66.003 and COPD exacerbation J44.1 [facility] [address] 99545- 4122 Jun, Generalized anxiety disorder F41.1 [place] [address] 36151- 2436 16 Jun, 2016 [facility] [address] 89054 -1231 Jun, [facility] [address] 04217 -1245 Jun, Shortness of breath R06.02 and COPD exacerbation J44.1 [place] [address] 84376- 3342 Jun, Eczema, unspecified type L30.9 [place] [address] 53702- 2776 Jun, [place] [address] 40134- 5066 May, [place] [id number] [place] [address] 85563- 0235 May, Muscle cramping R25.2 [place] [id number] [place] [address] 74461- 2603 May, [place] [address] 31742- 6051 Apr, Diarrhea R19.7 [place] [address] 53161- 0907 Apr, [place] [id number] [place] [address] 85111- 8901 Apr, Chronic pain syndrome G89.4 [place] [address] [id number] [place] [address] 44582- 6789 16 Apr, 2016 Cramp of both lower extremities R25.2 and Vascular dementia without behavioral disturbance F01.50 [place] [address] 49607- 2075 Apr, Type 2 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 and Cigarette nicotine dependence without complication F17.210 [place] [address] 51556- 7865 Mar, Generalized anxiety disorder F41.1 [place] [address] 72545- 0574 Feb, Generalized anxiety disorder F41.1 and Major depressive disorder, recurrent episode, moderate F33.1 [place] [address] 46605- 7480 Feb, [facility] [place] [facility] [place] [address] [address]62 -2934 Feb, Dysuria R30.0 and Acute cystitis with hematuria N30.01 [place] [address] 45090- 1327 Jan, [place] [address] 79125- 6757 Jan, [place] [address] 92229- 4422 Jan, [place] [address] 51864- 9565 Jan, [facility] [place] [facility] [place] [address] 08772 -7582 Jan, Wasp sting, accidental or unintentional, initial encounter T63.461A [place] [address] 26196- 8116 06 Jan, 2016 Encounter for immunization Z23 [place] [address] 36487- 3909 Jan, [facility] [address], [place] [address] 75[address] Jan, [facility] [id number] [place] [address] 96409- 5226 28 Dec, 2015 Generalized anxiety disorder F41.1 and Major depressive disorder, recurrent episode, moderate F33.1 [facility] [id number] [place] [address] 71804- 9032 21 Dec, 2015 Routine gynecological examination Z01.419 ; Postmenopausal Z78.0 ; Screening breast examination Z12.39 ; Osteopenia M85.80 and Breast cancer screening Z12.39 [facility] [id number] [place] [address] 12536- 1537 20 Dec, 2015 [facility] [id number] [place] [address] 35037- 5341 19 Dec, 2015 [facility] [id number] [place] [address] 56741- 8964 16 Dec, 2015 [facility] [id number] [place] [address] 97742- 0616 16 Dec, 2015 [facility] [id number] [place] [address] 26263- 7937 14 Dec, 2015 [facility] [id number] [place] [address] 81640- 3635 Dec, [facility] [id number] [place] [address] 26913- 1804 Nov, [facility] [id number] [place] [address] 00981 -3949 Nov, Cough R05 ; Other viral agents as the cause of diseases classified elsewhere B97.89 and Acute upper respiratory infection, unspecified J06.9 [facility] [address], [place] [address] 1266 Nov, [facility] [id number] [place] [address] 39057- 3929 Nov, [facility] [address], [place] [address]- 8544 Nov, [facility] [address], [place] [address]- 0913 Nov, [facility] [address], [place] [address]- 8982 Nov, [facility] [id number] [place] [address] 22179- 3821 Oct, [facility] [id number] [place] [address] 00803- 5735 Oct, [facility] [id number], [place] [address]- 3640 Oct, [facility] [id number] [place] [address] 47216- 1216 Oct, Chronic pain syndrome G89.4 [facility] [address], [place] [address] 3491 Sep, Generalized anxiety disorder F41.1 and Major depressive disorder, recurrent episode, moderate F33.1 [facility] [address], [place] [address]- 9953 Sep, [facility] [address], [place] [address]- 1453 Sep, [facility] [address], [place] [address]- 7071 14 Sep, 2015 Generalized anxiety disorder F41.1 [facility] [address], [place] [address]- 0442 13 Sep, 2015 Cramp of both lower extremities R25.2 and Cervicalgia M54.2 [facility] [address], [place] [address]- 3622 06 Sep, 2015 Generalized anxiety disorder F41.1 [facility] [id number], [place] [address]- 8458 Sep, [facility] [address] [place] [id number] [place] [address] 22936 -2822 August, Rash R21 ; Itching L29.9 and Allergic response, subsequent encounter T78.40XD [facility] [address] [place] [id number] [place] [address] 51360- 6818 August, Primary insomnia F51.01 [facility] [address] [place] [id number] [place] [address] 43583 -9479 August, Rash R21 ; Itching L29.9 and Allergic response, initial encounter T78.40XA [place] [address] [place] [id number] [place] [address] 32936- 3936 August, [place] [address] [place] [id number] [place] [address] 94884- 2261 August, Cramp of both lower extremities R25.2 [place] [address] [place] [id number] [place] [address] 11330- 0630 August, Back pain M54.9 [place] [address] [place] [id number] [place] [address] 11503- 9001 August, [place] [address] [place] [id number] [place] [address] 15995- 0434 August, [facility] [address] [id number] [place] [address] 22105 -9215 August, Cramp of both lower extremities R25.2 [place] [address] [id number] [place] [address] 64373- 2100 August, [place] [address] [id number] [place] [address] 92658- 5912 August, Syncope R55 ; Paroxysmal atrial fibrillation I48.0 ; Dementia without behavioral disturbance, unspecified dementia type F03.90 and Chronic pain syndrome G89.4 [place] [address] [place] [id number] [place] [address] 36013- 5804 August, Type 2 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 and Syncope R55 [facility] [id number] [place] [address] 70139- 3266 Jul, [facility] [id number] [place] [address] 39901- 3050 Jul, [facility] [id number] [place] [address] 58338- 2424 Jul, [facility] [address] [id number] [place] [address] 67478- 5582 Jul, [facility] [address] [id number] [place] [address] 63408- 3518 Jul, [facility] [address] [place] [id number] [place] [address] 11411- 0011 Jul, UTI (urinary tract infection) N39.0 [facility] [address] [id number] [place] [address] 10790- 5247 Jul, [facility] [address] [place] [id number] [place] [address] 91066- 6210 Jul, Major depressive disorder, recurrent episode, moderate F33.1 and Generalized anxiety disorder F41.1 [facility] [address] [place] [id number] [place] [address] 23174- 1137 Jul, Generalized anxiety disorder F41.1 [facility] [id number] [place] [address] 61854- 3510 Jul, Diarrhea R19.7 [facility] [id number] [place] [address] 68026- 0156 Jul, [facility] [id number] [place] [address] 47924- 7667 Jun, [facility] [id number] [place] [address] 72999- 3512 Jun, Eczema L30.9 [facility] [address], [place] [address]- 8106 Jun, [facility] [address], [place] [address]- 7276 Jun, COPD (chronic obstructive pulmonary disease) J44.9 [facility] [address], [place] [address]- 0186 Jun, [facility] [id number] [place] [address] 35268- 5625 Jun, Major depressive disorder, recurrent episode, moderate F33.1 and Generalized anxiety disorder F41.1 [facility] [address], [place] [address]- 1656 May, [facility] [address], [place] [address]- 3899 May, UTI (urinary tract infection) N39.0 [facility] [address], [place] [address]- 3923 May, [facility] [address], [place] [address]- 0287 May, [facility] [address], [place] [address]- 5951 May, [facility] [address], [place] [address]- 1616 May, [facility] [address], [place] [address]- 1908 Apr, Major depressive disorder, recurrent episode, moderate F33.1 and Generalized anxiety disorder F41.1 [facility] [address], [place] [address]- 3468 Apr, COPD (chronic obstructive pulmonary disease) J44.9 [facility] [address], [place] [address]- 2216 Apr, [facility] [id number] [address]- 8854 Apr, Atrial flutter I48.92 [facility] [address] [place] [id number] [place] [address] 17490- 4227 Apr, [facility] [address] [id number] [place] [address] 70667- 8160 Apr, [facility] [id number] [place] [address] 59698- 4978 Mar, [facility] [id number] [place] [address] 54022- 2625 Mar, [facility] [id number] [place] [address] 33150- 5979 Mar, [facility] [id number] [place] [address] 77313- 3526 Mar, Hyperlipidemia E78.5 ; Type 2 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 ; Major depressive disorder, recurrent episode, moderate F33.1 and Chronic pain syndrome G89.4 [facility] [id number] [place] [address] 65844- 7625 Mar, [facility] [id number] [place] [address] 15763- 8350 Mar, [facility] [id number] [place] [address] 85598- 0790 Mar, [facility] [id number] [place] [address] 78668- 2558 Mar, [facility] [id number] [place] [address] 40947- 9787 Feb, COPD (chronic obstructive pulmonary disease) J44.9 and Back pain M54.9 [facility] [address], [place] [address]- 9446 Feb, [facility] [id number] [place] [address] 52531- 8290 Feb, [facility] [address], [place] [address]- 3874 Feb, [facility] [id number] [place] [address] 14894- 5812 Feb, [facility] [address], [place] [address]- 2980 Feb, [facility] [id number] [place] [address] 59368- 8951 Feb, [facility] [id number] [place] [address] 63806- 3955 Feb, [facility] [id number] [place] [address] 25403- 7435 Feb, [facility] [id number] [place] [address] 22222- 7028 Feb, Diabetes E11.9 ; Back pain M54.9 and COPD (chronic obstructive pulmonary disease) J44.9 [facility] [id number] [place] [address] 86442- 6841 Jan, [facility] [id number] [place] [address] 28219- 5094 Jan, Major depression, recurrent F33.9 and Generalized anxiety disorder F41.1 [facility] [id number] [place] [address] 32602- 8832 Jan, Chronic pain G89.29 [facility] [address], [place] [address]- 2810 Jan, [facility] [id number] [place] [address] 16031- 8231 Jan, [facility] [id number] [place] [address] 48979- 8986 Jan, [facility] [address], [place] [address]- 4882 Jan, [facility] [id number] [place] [address] 80266- 2450 Jan, Nicotine dependence F17.200 [facility] [address] 99302- 4866 Jan, Nicotine dependence F17.200 and Back pain M54.9 [facility] [id number] [place] [address] 32323- 9065 Jan, [facility] [id number] [place] [address] 77715- 0710 28 Dec, 2014 [facility] [id number] [place] [address] 35730- 4086 25 Dec, 2014 Anxiety, generalized 300.02 and Major depression, recurrent 296.30 [facility] [id number] [place] [address] 84370- 1058 24 Dec, 2014 [facility] [id number] [place] [address] 90778- 2186 21 Dec, 2014 [facility] [id number] [place] [address] 79769- 9708 17 Dec, 2014 [facility] [id number] [place] [address] 02651- 7071 15 Dec, 2014 [facility] [id number] [place] [address] 43119- 3782 14 Dec, 2014 [facility] [id number] [place] [address] 79496- 5892 11 Dec, 2014 [facility] [id number] [place] [address] 24895- 0624 10 Dec, 2014 [facility] [id number] [place] [address] 64730- 2818 08 Dec, 2014 Skin tear 879.8 [facility] [address] [place] [address] 59842- 4877 08 Dec, 2014 Routine gynecological examination V72.31 ; Breast cancer screening V76.10 and Family history of breast cancer in first degree relative V16.3 [facility] [address], [place] [address]- 0172 Dec, [facility] [id number] [place] [address] 92244- 9943 Dec, [facility] [address], [place] [address]- 1303 Nov, [facility] [id number] [place] [address] 54825- 5518 Nov, [facility] [id number] [place] [address] 20781- 9841 Nov, Poor balance 781.99 and Vascular dementia, uncomplicated 290.40 [facility] [id number] [place] [address] 61606- 6024 Nov, [facility] [id number] [place] [address] 93520- 1658 Nov, Major depression, recurrent 296.30 and Anxiety, generalized 300.02 [facility] [id number] [place] [address] 05586- 9923 Nov, [facility] [id number] [place] [address] 87278- 6564 Nov, [facility] [address], [place] [address]- 2147 Nov, [facility] [id number] [place] [address] 23368- 4647 Nov, [facility] [address], [place] [address]- 5401 Nov, Vascular dementia, uncomplicated 290.40 and Lumbago 724.2 [facility] [address], [place] [address]- 4364 Nov, [facility] [id number] [place] [address] 12715- 1872 Nov, [facility] [address], [place] [address]- 7138 Nov, [facility] [address], [place] [address]- 4889 Oct, [facility] [address], [place] [address]- 1566 Oct, [facility] [id number] [place] [address] 84576- 6805 Oct, [facility] [address], [place] [address]- 8765 Oct, COPD (chronic obstructive pulmonary disease) 496 and Hyperlipidemia 272.4 [facility] [address], [place] [address]- 5535 Oct, Major depression, recurrent 296.30 and Anxiety, generalized 300.02 [facility] [id number] [address]- 5418 Oct, [facility] [address], [place] [address]- 5635 Oct, [facility] [address], [place] [address]- 5022 Oct, [facility] [address], [place] [address]- 2567 Sep, Lumbago 724.2 and Anxiety state, unspecified 300.00 [facility] [address], [place] [address]- 4552 Sep, [facility] [address], [place] [address]- 5736 Sep, [facility] [address], [place] [address]- 5450 August, [facility] [id number], [place] [address]- 5425 August, Major depression, recurrent 296.30 ; Anxiety, generalized 300.02 and No condition on Arco II V71.09 [facility] [id number] [place] [address]- 4470 August, [facility] [address] [facility] [id number] [place]- 2876 August, [facility] [address], [place] [address]- 8712 Jul, [facility] [address] [facility] [id number] [place] [address]- 2302 Jul, [facility] [id number] [place] [address]- 2318 Jul, [facility] [id number] [place] [address]- 6584 Jun, [facility] [address] [place] [address]- 5464 Jun, [facility] [id number], [place] [address]- 9072 Jun, [facility] [address] [place] [address]- 0054 Jun, [facility] [id number] [address]- 7757 Jun, [facility] [address] [place] [address]- 5538 Jun, [facility] [id number], [place] [address]- 3074 23 Jun, 2014 [facility] [id number] 2488 17 Jun, 2014 [facility] [address] [facility] [id number] 6966 Jun, [facility] [id number] 5392 Jun, [facility] [place] [facility] [address] [id number] [place] [address]- 2313 10 Jun, 2014 [facility] [place] [facility] [address] [id number] [place] [address]- 9801 10 Jun, 2014 [facility] [place] [facility] [address] [id number] [place] [address]- 8729 07 Jun, 2014 [facility] [place] [facility] [address] [id number] [place] [address]- 8830 07 Jun, 2014 [facility] [place] [facility] [address] [id number] [place] [address]- 9064 Jun, [facility] [place] [facility] [address] [id number] [place] [address]- 3689 Jun, 2014 [facility] [place] [facility] [address] [id number] [place] [address]- 9739 May, [facility] [place] [facility] [address] [id number] [place] [address]- 5101 May, 2014 [facility] [place] [facility] [address] [id number] [place] [address]- 4013 May, [facility] [place] [facility] [address] [facility] [id number] [place] [address]- 0699 May, 2014 [facility] [place] [facility] [address] [facility] [id number] [place] [address]- 2558 May, 2014 [facility] [place] [facility] [address] [id number] [place] [address] May, 2014 [facility] [place] [facility] [address] [id number] [place] [address] May, 2014 [facility] [place] [facility] [address] [id number] [place] [address] 12 May, 2014 [facility] [place] [facility] [address] [facility] [id number] [place] [address] May, 2014 [facility] [place] [facility] [address] [facility] [id number] [place] [address] May, 2014 [facility] [place] [facility] [address] [id number] [place] [address] May, 2014 [facility] [place] [facility] [address] [id number] [place] [address] May, 2014 [facility] [place] [facility] [address] [id number] [place] [address] May, 2014 [facility] [place] [facility] [address] [id number] [place] [address] May, [facility] [place] [facility] [address] [id number] [place] [address] Apr, [facility] [place] [facility] [address] [id number] [place] [address] Apr, [facility] [place] [facility] [address] [id number] [place] [address] Apr, [facility] [place] [facility] [address] [id number] [place] [address] Apr, [facility] [place] [facility] [address] [id number] [place] [address] Apr, [facility] [place] [facility] [address] [id number] [place] [address] Apr, [facility] [place] [facility] [address] [id number] [place] [address] Apr, [facility] [place] [facility] [address] [id number] [place] [address] Apr, [facility] [place] [facility] [address] [id number] [place] [address] Apr, [facility] [place] [facility] [address] [id number] [place] [address] Apr, [facility] [place] [facility] [address] [id number] [place] [address] Apr, [facility] [place] [facility] [address] [id number] [place] [address] Apr, [facility] [place] [facility] [address] [id number] [place] [address] Mar, [facility] [place] [facility] [address] [id number] [place] [address] 31 Mar, 2014 [facility] [place] [facility] [address] [id number] [place] [address] 30 Mar, 2014 [facility] [place] [facility] [address] [id number] [place] [address] 30 Mar, 2014 [facility] [place] [facility] [address] [id number] [place] [place] [address] Mar, [facility] [place] [facility] [address] [id number] [place] [address] 7380 Mar, [facility] [place] [facility] [address] [id number] [place] [address] 4633 Mar, [facility] [place] [facility] [address] [id number] [place] [address]- 4879 19 Mar, 2014 [facility] [place] [facility] [address] [id number] [place] [address]- 1118 15 Mar, 2014 [facility] [place] [facility] [address] [id number] [place] [address]- 9439 15 Mar, 2014 [facility] [place] [facility] [address] [id number] [place] [address]- 7525 15 Mar, 2014 [facility] [place] [facility] [address] [id number] [place] [address]- 4045 15 Mar, 2014 [facility] [place] [facility] [address] [id number] [place] [address]- 4486 15 Mar, 2014 [facility] [place] [facility] [address] [id number] [place] [address]- 0644 15 Mar, 2014 [facility] [place] [facility] [address] [id number] [place] [address]- 7259 Mar, [facility] [place] [facility] [address] [id number] [place] [address]- 3233 Mar, [facility] [place] [facility] [address] [id number] [place] [address]- 8503 Mar, [facility] [place] [facility] [address] [id number] [place] [address]- 6450 Mar, [facility] [place] [facility] [address] [id number] [place] [address]- 5850 Mar, [facility] [place] [facility] [address] [id number] [place] [address]- 9527 Mar, [facility] [place] [facility] [address] [id number] [place] [address]- 3353 Feb, [facility] [place] [facility] [address] [id number] [place] [address]- 5029 Feb, [facility] [place] [facility] [address] [id number] [place] [address]- 1529 Feb, [facility] [place] [facility] [address] [id number] [place] [address]- 2722 Feb, [facility] [place] [facility] [address] [id number] [place] [address]- 6513 Feb, [facility] [place] [facility] [address] [id number] [place] [address]- 4812 Feb, [facility] [place] [facility] [address] [id number], [place] [address]- 1692 Feb, [facility] [place] [facility] [address] [id number] [place] [address]- 7978 Feb, [facility] [place] [facility] [address] [id number] [place] [address]- 3345 Feb, [facility] [place] [facility] [address] [id number], [place] [address]- 8260 Feb, [facility] [place] [facility] [address] [id number] [place] [address]- 1245 Feb, [facility] [place] [facility] [address] [id number] [place] 6985 Feb, [facility] [place] [facility] [address] [id number] [place] [address] Feb, [facility] [place] [facility] [address] [id number] [place] [address]- 7207 Feb, [facility] [place] [facility] [address] [id number] [place] [address]- 3091 Feb, [facility] [place] [facility] [address] [id number] [place] [address]- 2776 Feb, [facility] [place] [facility] [address] [id number] [place] [address]- 5129 Feb, [facility] [place] [facility] [address] [id number] [place] [address]- 3128 Jan, [facility] [place] [facility] [address] [id number] [place] [address]- 7843 Jan, [facility] [place] [facility] [address] [id number] [place] [address]- 0580 Jan, [facility] [place] [facility] [address] [id number] [place] [address]- 8144 Jan, [facility] [place] [facility] [address] [id number] [place] [address]- 1537 Jan, [facility] [place] [facility] [address] [id number] [place] [address]- 9309 Jan, [facility] [place] [facility] [address] [id number] [place] [address]- 0162 16 Jan, 2014 [facility] [place] [facility] [address] [id number] [place] [address] 16 Jan, 2014 [facility] [place] [facility] [address] [id number] [place] [address]- 5261 Jan, [facility] [place] [facility] [address] [id number] [place] [address]- 5158 Jan, [facility] [place] [facility] [address] [id number] [place] [address]- 9147 Jan, [facility] [place] [facility] [address] [id number] [place] [address]- 7547 Dec, [facility] [place] [facility] [address] [id number] [place] [address]- 4351 Dec, [facility] [place] [facility] [address] [id number] [place] [address]- 7312 Nov, [facility] [place] [facility] [address] [id number] [place] [address]- 9144 Nov, [facility] [place] [facility] [address] [id number] [place] [address]- 4216 Nov, [facility] [place] [facility] [address] [id number] [place] [address]- 5853 Nov, [facility] [place] [facility] [address] [id number] [place] [address]- 3211 Nov, [facility] [place] [facility] [address] [id number] [place] [address]- 2280 Nov, [facility] [place] [facility] [address] [id number], [place] [address]- 7100 Nov, [facility] [place] [facility] [address] [id number], [place] [address]- 5138 Oct, [facility] [place] [facility] [address] [id number] [place] [address]- 5566 Oct, [facility] [place] [facility] [address] [id number], [place] [address]- 2154 Oct, [facility] [place] [facility] [address] [id number] [place] 8647 Oct, [facility] [place] [facility] [address] [id number] [place] [address]- 2438 30 Sep, 2013 [facility] [place] [facility] [address] [id number] [place] [address]- 8262 Sep, [facility] [place] [facility] [address] [id number] [place] [address]- 9291 Sep, [facility] [place] [facility] [address] [id number] [place] [address]- 7911 Sep, [facility] [place] [facility] [address] [id number] [place] [address]- 2317 Sep, [facility] [place] [facility] [address] [id number] [place] [address]- 9356 Sep, [facility] [place] [facility] [address] [id number] [place] [address]- 2348 Sep, [facility] [place] [facility] [address] [id number] [place] [address]- 2738 Sep, [facility] [place] [facility] [address] [id number] [place] [address]- 5640 Sep, [facility] [place] [facility] [address] [id number] [place] [address]- 2255 Sep, [facility] [place] [facility] [address] [id number] [place] [address]- 4733 Sep, [facility] [place] [facility] [address] [id number] [place] [address]- 5081 Sep, [facility] [place] [facility] [address] [id number] [place] [address]- 9977 Sep, [facility] [place] [facility] [address] [id number] [place] [address]- 9515 Sep, [facility] [place] [facility] [address] [id number] [place] [address]- 1716 August, [facility] [place] [facility] [address] [id number] [place] [address]- 7463 August, [facility] [place] [facility] [address] [id number] [place] [address]- 5798 August, [facility] [address] [id number] [place] [address]- 9569 August, [facility] [address] [id number] [place] [address]- 9037 August, [facility] [address] [id number] [place] [address]- 5449 August, [facility] [address] [id number] [place] [address]- 8717 August, [facility] [address] [id number] [place] [address]- 5452 August, [facility] [address] [id number] [place] [address]- 6764 August, [facility] [address] [id number] [place] [address]- 7458 August, [facility] [address] [id number] [place] [address]- 7782 August, [facility] [address] [id number] [place] [address]- 7602 August, [facility] [address] [id number] [place] [address]- 4796 August, [facility] [address] [id number] [place] [address]- 4781 August, [facility] [place] [facility] [address] [id number] [place] [address]- 1491 August, [facility] [place] [facility] [address] [id number] [place] [address]- 5209 August, [facility] [place] [facility] [address] [id number] [place] [address]- 7581 August, [facility] [place] [facility] [address] [id number] [place] [address]- 4471 August, [facility] [place] [facility] [address] [id number] [place] [address]80 August, [facility] [place] [facility] [address] [id number] [place] [address]- 3561 Jul, [facility] [place] [facility] [address] [id number] [place] [address]- 8142 Jul, [facility] [place] [facility] [address] [id number] [place] [address]- 4120 Jul, [facility] [place] [facility] [address] [id number] [place] [address]- 3403 Jul, [facility] [place] [facility] [address] [id number] [place] [address]- 3792 Jun, [facility] [place] [facility] [address] [id number] [place] [address]- 7362 Jun, [facility] [place] [facility] [address] [id number] [place] [address]- 1646 Jun, [facility] [place] [facility] [address] [id number] [place] [address]- 3184 Jun, [facility] [place] [facility] [address] [id number] [place] [address]- 0314 Jun, [facility] [place] [facility] [address] [id number] [place] [address]- 7727 Jun, [facility] [place] [facility] [address] [id number] [place] [address]- 0504 Jun, [facility] [place] [facility] [address] [id number] [place] [address]- 7919 Jun, [facility] [place] [facility] [address] [id number] [place] [address]- 0812 Jun, [facility] [place] [facility] [address] [id number] [place] [address]- 1597 Jun, [facility] [place] [facility] [address] [id number] [place] [address]- 5847 May, [facility] [place] [facility] [address] [id number] [place] [address]- 6486 May, [facility] [place] [facility] [address] [id number] [place] [address]- 7376 May, [facility] [place] [facility] [address] [id number] [place] [address]- 2102 May, [facility] [place] [facility] [address] [id number] [place] [address]- 2541 May, [facility] [place] [facility] [address] [id number] [place] [address]- 7806 May, [facility] [place] [facility] [address] [facility] [id number] [place] [address]- 4444 May, [facility] [place] [facility] [address] [facility] [id number] [place] [address]- 8061 May, [facility] [place] [facility] [address] [id number] [place] [address]- 9978 May, [facility] [place] [facility] [address] [facility] [id number] [place] [address]- 8889 May, [facility] [place] [facility] [address] [facility] [id number] [place] [address]- 5392 18 May, 2013 [facility] [place] [facility] [address] [facility] [id number] [place] [address]- 3527 17 May, 2013 [facility] [place] [facility] [address] [facility] [id number] [place] [address]- 2546 May, [facility] [place] [facility] [address] [id number] [place] [address]- 1172 May, [facility] [place] [facility] [address] [facility] [id number] [place] [address]- 1336 10 May, 2013 [facility] [place] [facility] [address] [facility] [id number] [place] [address]- 4927 07 May, 2013 [facility] [address] [id number] [place] [address]- 3637 07 May, 2013 [facility] [address] [id number] [place] [address]- 6357 17 Apr, 2013 [facility] [address] [id number] [place] [address]- 1635 Apr, [facility] [address] [id number] [place] [address]- 5282 Apr, [facility] [address] [id number] [place] [address]- 2694 Apr, [facility] [address] [id number] [place] [address]- 3694 Apr, [facility] [address] [id number] [place] [address]- 1257 Apr, [facility] [address] [id number] [place] [address]- 8966 Apr, [facility] [address] [id number] [place] [address]- 3950 Mar, [facility] [address] [id number] [place] [address]- 8646 Mar, [facility] [address] [id number] [place] [address]- 6416 Mar, [facility] [address] [id number] [place] [address]- 0312 Mar, [facility] [address] [id number] [place] [address]- 4359 Mar, [facility] [address] [id number] [place] [address]- 7426 Mar, [facility] [address] [id number] [place] [address]- 8387 Mar, [facility] [place] [facility] [address] [id number] [place] [address]- 4865 Mar, [facility] [place] [facility] [address] [id number] [place] [address]- 3187 Mar, [facility] [place] [facility] [address] [id number] [place] [address]- 4859 Mar, [facility] [place] [facility] [address] [id number] [place] [address]- 3094 Mar, [facility] [address] [id number] [place] [address]- 9303 Feb, [facility] [place] [facility] [address] [id number] [place] [address]- 7772 Feb, [facility] [address] [id number] [place] [address]- 6025 Feb, [facility] [address] [id number] [place] [address]- 0492 20 Feb, 2013 [facility] [place] [facility] [address] [id number] [place] [address]- 2834 Feb, [facility] [place] [facility] [address] [id number] [place] [address]- 5733 19 Feb, 2013 [facility] [place] [facility] [address] [id number] [place] [address]- 6856 15 Feb, 2013 [facility] [place] [facility] [address] [id number], [place] [address]- 8871 14 Feb, 2013 [facility] [place] [facility] [address] [id number] [place] [address]- 6630 14 Feb, 2013 [facility] [place] [facility] [address] [id number], [place] [address]- 4325 13 Feb, 2013 [facility] [place] [facility] [address] [id number], [place] [address]- 3240 13 Feb, 2013 [facility] [place] [facility] [address] [id number], [place] [address]- 2069 Feb, [facility] [place] [facility] [address] [id number] [place] [address]- 4361 Feb, [facility] [place] [facility] [address] [id number] [place] [address]- 5652 Feb, [facility] [place] [facility] [address] [id number] [place] [address]- 7387 Feb, [facility] [place] [facility] [address] [id number] [place] [address]- 2873 Feb, [facility] [place] [facility] [address] [id number] [place] [address]- 7049 Jan, [facility] [place] [facility] [address] [id number] [place] [address]- 2598 Jan, [facility] [place] [facility] [address] [id number] [place] [address]- 0608 Jan, [facility] [place] [facility] [address] [id number] [place] [address]- 5013 Jan, [facility] [place] [facility] [address] [id number] [place] [address]- 4042 Jan, [facility] [place] [facility] [address] [id number] [place] [address]- 9699 Jan, [facility] [place] [facility] [address] [id number], [place] [address]- 6125 Jan, [facility] [place] [facility] [address] [id number], [place] [address]- 3966 Jan, [facility] [place] [facility] [address] [id number] [place] [address]- 1767 10 Jan, 2013 [facility] [place] [facility] [address] [id number] [place] [address]- 8518 27 Dec, 2012 [facility] [place] [facility] [address] [id number] [place] [address]- 0178 20 Dec, 2012 [facility] [place] [facility] [address] [id number] [place] [address]- 5633 19 Dec, 2012 [facility] [place] [facility] [address] [id number] [place] [address]- 7642 10 Dec, 2012 [facility] [place] [facility] [address] [id number] [place] [address]- 4436 04 Dec, 2012 [facility] [place] [facility] [address] [id number] [place] [address]- 1703 03 Dec, 2012 [facility] [place] [facility] [address] [id number] [place] [address]- 9933 Nov, [facility] [place] [facility] [address] [id number] [place] [address]- 3753 Nov, [facility] [place] [facility] [address] [id number] [place] [address]- 2099 Nov, [facility] [place] [facility] [address] [id number] [place] [address]- 2639 Nov, [facility] [place] [facility] [address] [id number] [place] [address]- 1161 Nov, [facility] [place] [facility] [address] [id number] [place] [address]- 7629 Nov, [facility] [place] [facility] [address] [id number] [place] [address]- 4413 Nov, [facility] [place] [facility] [address] [id number] [place] [address]- 3100 Nov, [facility] [place] [facility] [address] [id number] [place] [address]- 2549 14 Nov, 2012 [facility] [place] [facility] [address] [id number] [place] [address]- 0183 Nov, [facility] [place] [facility] [address] [id number] [place] [address]- 2546 Oct, [facility] [place] [facility] [address] [id number] [place] [address]- 3623 Oct, [facility] [place] [facility] [address] [id number] [place] [address]- 4325 Oct, [facility] [place] [facility] [address] [id number] [place] [address]- 8540 Oct, [facility] [place] [facility] [address] [id number] [place] [address]- 9656 Oct, [facility] [place] [facility] [address] [id number] [place] [address]- 8548 Oct, [facility] [place] [facility] [address] [id number] [place] [address]- 8241 Oct, [facility] [place] [facility] [address] [id number] [place] [address]- 9224 Oct, [facility] [place] [facility] [address] [id number] [place] [address]- 7905 Sep, [facility] [place] [facility] [address] [id number] [place] [address]- 3854 Sep, [facility] [place] [facility] [address] [id number] [place] [address]- 3784 Sep, [facility] [place] [facility] [address] [id number] [place] [address]- 0238 Sep, [facility] [place] [facility] [address] [id number] [place] [address]- 8736 Sep, [facility] [place] [facility] [address] [id number], [place] [address]- 4983 Sep, [facility] [place] [facility] [address] [id number] [place] [address]- 1039 Sep, [facility] [place] [facility] [address] [id number] [place] [address]- 1725 Sep, [facility] [place] [facility] [address] [id number] [place] [address]- 6221 August, [facility] [place] [facility] [address] [id number] [place] [address] August, [facility] [address] [id number] [place] [address] August, [facility] [address] [id number] [place] [address] August, [facility] [address] [id number] [place] [address] August, [facility] [address] [id number] [place] [address] Jul, [facility] [address] [id number] [place] [address] Jul, [facility] [address] [id number] [place] [address] Jul, [facility] [address] [id number] [place] [address] Jul, [facility] [address] [id number] [place] [address] Jul, [facility] [address] [id number] [place] [address] 18 Jun, 2012 [facility] [address] [id number] [place] [address] 18 Jun, 2012 [facility] [address] [id number] [place] [address] 15 Jun, 2012 [facility] [address] [id number] [place] [address]- [address] 14 Jun, 2012 [facility] [place] [facility] [address] [id number] [place] [address]- [address] 12 Jun, 2012 [facility] [place] [facility] [address] [id number] [place] [address]- [address] 08 Jun, 2012 [facility] [address] [id number] [place] [address] 08 Jun, 2012 [facility] [address] [id number] [place] [address] Jun, [facility] [address] [id number] [place] [address] Jun, [facility] [address] [id number] [place] [address] May, [facility] [address] [id number] [place] [address] 1236 May, [facility] [address] [id number] [place] [address] May, [facility] [address] [id number] [place] [address]- [address] May, [facility] [address] [id number] [place] [address] Apr, [facility] [address] [id number] [place] [address] Apr, [facility] [address] [id number] [place] [address] Apr, [facility] [address] [id number] [place] [address] 8360 Apr, [facility] [address] [id number] [place] [address] Apr, [facility] [address] [id number] [place] [address]- 8832 Apr, [facility] [address] [id number] [place] [address]- [address] Apr, [facility] [address] [id number] [place] [address] Mar, [facility] [address] [place] [id number] Mar, [facility] [address] [id number] [place] [address] Mar, [facility] [place] [facility] [address] [id number] [place] [address] 1770 Mar, [facility] [place] [facility] [address] [id number] [place] [address]- 1176 Mar, [facility] [place] [facility] [address] [id number] [place] [address]- 1513 Mar, [facility] [place] [facility] [address] [id number] [place] [address] Mar, [facility] [place] [facility] [address] [id number] [place] [address] Mar, [facility] [place] [facility] [address] [id number] [place] [address] Mar, [facility] [place] [facility] [address] [id number] [place] [address] 1615 Mar, [facility] [place] [facility] [address] [id number] [place] [address]- [address] Mar, [facility] [place] [facility] [address] [id number] [place] [address]- 6[address] Mar, [facility] [place] [facility] [address] [id number] [place] [address]- [address] Mar, [facility] [place] [facility] [address] [id number] [place] [address]- [address] Mar, [facility] [place] [facility] [address] [id number], [place] [address] Mar, [facility] [place] [facility] [address] [id number] [place] [address]- [address] Mar, [facility] [place] [facility] [address] [id number] [place] [address]- [address] Mar, [facility] [place] [facility] [address] [id number] [place] [address]- 6467 Feb, [facility] [place] [facility] [address] [id number] [place] [address]- 2982 Feb, [facility] [place] [facility] [address] [id number] [place] [address]- 9278 Feb, [facility] [place] [facility] [address] [id number] [place] [address]- [address] Feb, [facility] [place] [facility] [address] [id number] [place] [address]- 7967 Feb, [facility] [place] [facility] [address] [id number] [place] [address]- 1626 Feb, [facility] [place] [facility] [address] [id number] [place] [address]- 4613 Feb, [facility] [place] [facility] [address] [id number] [place] [address]- 0810 Feb, [facility] [place] [facility] [address] [id number] [place] [address]- 5814 Feb, [facility] [place] [facility] [address] [id number] [place] [address]- 8201 Feb, [facility] [place] [facility] [address] [id number] [place] [address]- 1494 Feb, [facility] [place] [facility] [address] [id number] [place] [address]- 8049 Feb, [facility] [place] [facility] [address] [id number] [place] [address]- 68[address] Feb, [facility] [place] [facility] [address] [id number], [place] [address] Feb, [facility] [place] [facility] [address] [id number] [place] [address]- 9361 Feb, [facility] [place] [facility] [address] [id number] [place] [address]- [address]295 Feb, [facility] [place] [facility] [address] [id number], [place] [address] Jan, [facility] [place] [facility] [address] [id number] [place] [address] Jan, [facility] [facility] [address] [id number] [place] [address] Jan, [facility] [place] [facility] [address] [id number] [place] [address] Jan, [facility] [place] [facility] [address] [id number] [place] [address] Jan, [facility] [place] [facility] [address] [id number] [place] [address] Jan, [facility] [place] [facility] [address] [id number] [place] [address] 28[address] Jan, [facility] [place] [facility] [address] [id number] [place] [address] Jan, [facility] [place] [facility] [address] [id number] [place] [address] 9[address] Jan, [facility] [place] [address] [id number] [place] [address]- 4[address] Jan, [facility] [place] [address] [id number] [place] [address] Jan, [facility] [place] [address] [id number] [place] [address] Jan, [facility] [address] [id number], [place] [address] Jan, [facility] [place] [address] [id number] [place] [address]- 4958 Jan, [facility] [place] [facility] [address] [id number] [place] [address]- [address]995 Jan, [facility] [place] [facility] [address] [id number] [place] [address]- 9095 Jan, [facility] [address] [id number], [place] [address] 04 Jan, 2012 [facility] [address] [id number] [place] [address]- [address]356 21 Dec, 2011 [facility] [address] [id number] [place] [address]- 4036 20 Dec, 2011 [facility] [address] [id number] [place] [address] 2546 18 Dec, 2011 [facility] [place] [address] [id number] [place] [address] 2546 18 Dec, 2011 [facility] [place] [facility] [address] [id number] [place] [address] 2546 10 Dec, 2011 [facility] [address] [id number] [place] [address]- 2276 10 Dec, 2011 [facility] [address] [id number] [place] [address]- 5514 10 Dec, 2011 [facility] [address] [id number] [place] [address]- [address]307 07 Dec, 2011 [facility] [address] [id number] [place] [address]- 1484 30 Nov, 2011 [facility] [address] [id number] [place] [address]- 4488 Nov, [facility] [address] [id number] [place] [address]- 8882 Nov, [facility] [address] [id number] [place] [address]- 2540 Nov, [facility] [address] [id number] [place] [address] 2546 Nov, [facility] [address] [id number] [place] [address]- 4942 Nov, [facility] [address] [id number] [place] [address]- 2548 30 Oct, 2011 [facility] [address] [id number] [place] [address]- 3394 30 Oct, 2011 [facility] [address] [id number] [place] [address]- [address]84 Oct, [facility] [address] [id number] [place] [address] 3306 Oct, [facility] [address] [id number] [place] [address]- 0205 Oct, [facility] [address] [id number] [place] [address] 6358 Oct, [facility] [address] [id number] [place] [address]- 2529 Oct, [facility] [address] [id number] [place] [address]- 4271 Sep, [facility] [address] [id number] [place] [address]- 4199 Sep, [facility] [address] [id number] [place] [address]- 0663 Sep, [facility] [address] [id number] [place] [address]- 7880 Sep, [facility] [address] [id number] [place] [address]- 0133 Sep, [facility] [address] [id number] [place] [address]- 2548 15 Sep, 2011 [facility] [address] [id number] [place] [address]- 7106 14 Sep, 2011 [facility] [address] [id number] [place] [address]- 4275 11 Sep, 2011 [facility] [address] [id number] [place] [address]- 4409 05 Sep, 2011 [facility] [address] [id number] [place] [address]- 2380 Sep, [facility] [address] [id number] [place] [address] 56[address] August, [facility] [address] [id number] [place] [address]- 1656 August, [facility] [address] [id number] [place] [address]- 1636 August, [facility] [address] [id number] [place] [address]- 2746 August, [facility] [address] [id number] [place] [address]- 5699 August, [facility] [address] [id number] [place] [address] 7607 Jul, [facility] [address] [id number] [place] [address]- 9727 Jul, [facility] [address] [id number] [place] [address]- 6733 Jul, [facility] [address] [id number] [place] [address]- 2001 Jul, [facility] [address] [id number] [place] [address]- 3416 Jul, [facility] [address] [id number] [place] [address]- 2052 Jul, [facility] [address] [id number], [place] [address] Jul, [facility] [address] [id number] [place] [address]- 7132 Jun, [facility] [address] [id number] [place] [address]- 6872 Jun, [facility] [address] [id number] [place] [address]- 6024 Jun, [facility] [address] [id number], [place] [address]91 Jun, [facility] [address] [id number] [place] [address]- 6413 Jun, [facility] [address] [id number] [place] [address]- 5856 May, [facility] [address] [id number] [place] [address] 1966 May, [facility] [address] [id number] [place] [address]- 3017 May, [facility] [address] [id number] [place] [address]- 8538 May, [facility] [address] [id number] [place] [address]- 8533 May, [facility] [address] [facility] [id number] [place] [address]- 7698 May, [facility] [address] [id number] [place] [address]- 0795 Apr, [facility] [address] [facility] [id number] [place] [address]- 2167 Mar, [facility] [address] [facility] [id number] [place] [address]- 5548 Feb, [facility] [address] [id number] [place] [address] 2540 Feb, [facility] [address] [id number] [place] [address]- 2548 Feb, [facility] [address] [id number] [place] [address]- 3870 Feb, [facility] [address] [facility] [id number] [place] [address]- 5188 Jan, [facility] [address] [id number] [place] [address]- 6475 Jan, [facility] [address] [id number] [place] [address]- 2735 26 Jan, 2011 [facility] [address] [id number] [place] [address] 24 Jan, 2011 [facility] [address] [id number] [place] [address]- 6197 14 Jan, 2011 [facility] [address] [id number] [place] [address]- 9252 19 Dec, 2010 [facility] [address] [id number] [place] [address]- 1592 Oct, [facility] [address] [id number] [place] [address]- 7738 August, [facility] [address] [id number] [place] [address]- 3744 29 Mar, 2010 [facility] [address] [id number] [place] [address]- 9690 27 Mar, 2010 [facility] [address] [id number] [place] [address]- 8901 16 Mar, 2010 [facility] [address] [id number] [place] [address]- 7773 15 Mar, 2010 [facility] [address] [id number] [place] [address]- 3937 15 Mar, 2010 [facility] [address] [id number] [place] [address]- 9382 08 Mar, 2010 [facility] [address] [id number] [place] [address]- 2536 03 Mar, 2010 [facility] [address] [id number] [place] [address]- 2065 24 Feb, 2010 [facility] [address] [id number] [place] [address]- 3916 24 Feb, 2010 [facility] [address] [id number], [place] [address]- 7600 15 Feb, 2010 [facility] [address] [id number] [place] [address]- 2467 19 Jan, 2010 [facility] [address] [id number], [place] [address]- 2098 Jan, [facility] [address] [id number] [place] [address]- 0881 Jan, [facility] [address] [id number], [place] [address]- 6530 Nov, [facility] [address] [id number] [place] [address]- 8770 Sep, [facility] [address] [id number], [place] [address]- 9007 August, [facility] [address] [id number], [place] [address]- 0020 30 Mar, 2009 [facility] [address] [id number], [place] [address]- 8625 Mar, [facility] [address] [id number], [place] [address]- 1016 17 Feb, 2009 [facility] [address] [id number], [place] [address]- 5354 Feb, [facility] [address] [id number], [place] [address]- 3314 10 Feb, 2009 [facility] [address] [id number], [place] [address]- 7223 10 Feb, 2009 [facility] [address] [id number], [place] [address]- 9017 06 Feb, 2009 [facility] [address] [id number], [place] [address]- 5256 27 Jan, 2009 [facility] [address] [id number], [place] [address]- 6012 Jan, [facility] [address] [id number], [place] [address]- [address]231 Jan, [facility] [address] [id number], [place] [address]- 3899 Jan, [facility] [id number], [place] [address]- 0088 Nov, [facility] [address] [id number], [place] [address]- 8961 Sep, [facility] [id number], [place] [address]- 8648 August, [facility] [id number] [place] [address]- [address]387 Jul, [facility] [address] [id number], [place] [address]- 4494 May, IMMUNIZATIONS No Known Immunizations SOCIAL HISTORY Never Assessed REASON FOR VISIT Lab (walk-in) PLAN OF CARE VITAL SIGNS MEDICATIONS Unknown Medications RESULTS Name Result Date Reference Range HEPATITIS PROFILE 2017-08-05 HEPATITIS A IGM NON-REACTIVE NON-REACTIVE HEPATITIS B SURFACE ANTIGEN NON-REACTIVE NON-REACTIVE HEPATITIS B CORE ANTIBODY (IGM) NON-REACTIVE NON-REACTIVE HEPATITIS C ANTIBODY NON-REACTIVE NON-REACTIVE SIGNAL TO CUT-OFF 0.01 <1.00 LIVER PANEL (LFT) 2017-08-05 PROTEIN, TOTAL 6.0 6.1-8.1 ALBUMIN 3.9 3.6-5.1 GLOBULIN 2.1 1.9-3.7 ALBUMIN/GLOBULIN RATIO 1.9 1.0-2.5 BILIRUBIN, TOTAL 0.5 0.2-1.2 BILIRUBIN, DIRECT 0.1 < OR=0.2 BILIRUBIN, INDIRECT 0.4 0.2-1.2 ALKALINE PHOSPHATASE 139 33-130 AST 16 10-35 ALT 11 6-29 PROCEDURES Procedure Date Ordered Result Body Site LAB NOT BILLED BY [facility] August 05, 2017 VENIPUNCT, ROUTINE* August 05, 2017 INSTRUCTIONS MEDICATIONS ADMINISTERED No Known Medications [...] Knee Surgery 07/16/17 Hospitalization History [facility]- left hand/wrist swelling 10/09/2017
--- OUTSIDE RECORDS SUMMARY | 2018-01-01 12:01 | XMS REPORT ---
Author Author SENAIT DUNLAP [facility] Address [address] [place] [address] Care Team Providers Care Medical Recruiter Name Role Phone SENAIT DUNLAP Unavailable PROBLEMS Type Condition ICD9-CM Code ZNI80-US Code Onset Dates Condition Status SNOMED Code Problem History of common bile duct surgery Z98.89 Active 197168303 Problem Barretts esophagus K22.70 Active 555098401 Problem 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 Active 85410461 Problem Colon polyp K63.5 Active 98887312 Problem Bilateral low back pain without sciatica M54.5 Active 128706137 Problem Screening breast examination Z12.39 Active 791371763 Problem Postmenopausal Z78.0 Active 79241088 Problem Osteopenia M85.80 Active 011940025 Problem Cigarette nicotine dependence without complication F17.210 Active 23590954 Problem Type 2 diabetes mellitus with diabetic peripheral angiopathy without gangrene E11.51 Active 590974302 Problem Vascular dementia without behavioral disturbance F01.50 Active 79717622641933663 Problem Unspecified atherosclerosis of [place] arteries of extremities, unspecified extremity I70.209 Active 175051724382612 Problem Arthritis M19.90 Active 3337820 Problem Chronic atrial fibrillation I48.2 Active 528974780 Problem Chronic obstructive pulmonary disease with acute lower respiratory infection J44.0 Active 971367361 Problem Other chronic pancreatitis K86.1 Active 623644636 Problem Stress incontinence of urine N39.3 Active 90476775 Problem Controlled type 2 diabetes mellitus without complication, without long -term current use of insulin E11.9 Active 852520882 Problem Unspecified psychosis F29 Active 97324462 Problem Xeroderma Q80.9 Active 35720227 Problem COPD (chronic obstructive pulmonary disease) J44.9 Active 46620940 Problem Dementia without behavioral disturbance, unspecified dementia type F03.90 Active 89916752 Problem Gastroparesis K31.84 Active 189554449 Problem Type 2 diabetes mellitus with diabetic neuropathy, without long-term current use of insulin E11.40 Active 48189776 Problem Osteoporosis M81.0 Active 71721242 Problem Atherosclerosis of [place] artery of both lower extremities with intermittent claudication I70.213 Active 325550825801920 Problem Hyperlipidemia E78.5 Active 97517100 Problem Diabetic polyneuropathy associated with type 2 diabetes mellitus E11.42 Active 69844939 Problem Essential tremor G25.0 Active 30199956 Problem Atherosclerotic heart disease of [place]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 I25.118 Active 9573016624543 Problem Generalized anxiety disorder F41.1 Active 451145737 Problem Gastroesophageal reflux disease, esophagitis presence not specified K21.9 Active 918426287 Problem Coronary artery disease involving [place] coronary artery of [place] 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 I25.118 Active 6208646405649 Problem Postconcussion syndrome F07.81 Active 51621476 Problem Chronic pain syndrome G89.4 Active 584035875 Problem Migraine without aura and without status migrainosus, not intractable G43.009 Active 267197539 Problem Paroxysmal atrial fibrillation I48.0 Active 368464425 Problem Migraine without aura and with status migrainosus, not intractable G43.001 Active 290172257 Problem Cervicalgia M54.2 Active 4834608203047 Problem Acute exacerbation of chronic obstructive pulmonary disease (COPD) J44.1 Active 161634917 Problem Major depressive disorder, recurrent episode, moderate F33.1 Active 934063890 Problem Crohn''s disease without complication, unspecified gastrointestinal tract location K50.90 Active 09909701 Problem Chronic fatigue R53.82 Active 36345079 Problem Bipolar affective disorder, currently depressed, moderate F31.32 Active 660467959 ALLERGIES No Information ENCOUNTERS Encounter Location Date Diagnosis [address] [facility] [id number] [address] Nov, [facility] [id number] [address] Nov, [id number] [address] Oct, [facility] [id number], [place] [address] Oct, Bipolar affective disorder, currently depressed, moderate F31.32 ; Vascular dementia without behavioral disturbance F01.50 and Generalized anxiety disorder F41.1 [facility] [id number] [place] [address] 37208- 7835 Oct, [facility] [id number] [place] [address] 24137- 9309 Oct, [facility] [id number] [place] [address] 85112- 1815 Oct, Edema of both legs R60.0 [facility] [id number] [place] [address] 50150- 3252 Oct, [facility] [id number] [place] [address] 91924- 5303 Sep, [facility] [id number] [place] [address] 53737- 2697 Sep, [facility] [id number] [place] [address] 13508- 1868 Sep, [facility] [id number] [place] [address] 79960- 8032 Sep, Encounter for well woman exam with routine gynecological exam Z01.419 ; Screening for STDs (sexually transmitted diseases) Z11.3 ; Screening breast examination Z12.31 and Overweight (BMI 25.0-29.9) E66.3 [facility] [address] [address] Sep, [facility] [address] [id number] [address] 1828 Sep, [facility] [id number] [place] [address] 94886- 5027 Sep, [facility] [id number] [place] [address] 72623- 9681 August, [facility] [id number] [address] August, [facility] [id number] [address] August, Type 2 diabetes mellitus with diabetic neuropathy, without long-term current use of insulin E11.40 and Sprain of right ankle, unspecified ligament, initial encounter S93.401A [facility] [id number] [address] 78[address] August, [facility] [id number] [place] [address] 63312- 6668 August, [facility] [id number] [place] [address] 58541- 3057 August, [facility] [id number] [place] [address] 57378- 2609 August, Gastroesophageal reflux disease, esophagitis presence not specified K21.9 [facility] [id number] [place] [address] 90915- 9035 August, [facility] [id number] [place] [address] 28949- 7264 August, [facility] [id number] [place] [address] 18788- 3477 August, [facility] [id number] [place] [address] 83978- 6100 August, Type 2 diabetes mellitus with diabetic neuropathy, without long-term current use of insulin E11.40 and Elevated liver enzymes R74.8 [facility] [address] [place] [address] 47710- 0458 Jul, [facility] [id number] [place] [address] 09475- 8840 Jul, Cough R05 [facility] [address] [place] [address] 39749- 3510 Jul, [facility] [address], [place] [address] 1111 Jul, [facility] [id number] [place] [address] 47674- 7194 Jul, Bipolar affective disorder, currently depressed, moderate F31.32 ; Vascular dementia without behavioral disturbance F01.50 and Generalized anxiety disorder F41.1 [facility] [id number] [place] [address] 78838- 9552 Jul, [facility] [address] 49239- 7668 Jul, Type 2 diabetes mellitus with diabetic neuropathy, without long-term current use of insulin E11.40 and Elevated liver enzymes R74.8 [facility] [address] 84060- 1278 Jul, [facility] [id number] [place] [address] 91691- 6906 Jul, [facility] [id number] [place] [address] 22756- 4117 Jul, [facility] [id number] [place] [address] 66044- 9387 Jul, Post-menopausal Z78.0 [facility] [address] 24524- 9068 Jul, Stress incontinence of urine N39.3 [facility] [id number] [place] [address] 87728- 2275 Jul, [facility] [id number] [place] [address] 90679- 9792 Jul, [facility] [id number] [place] [address] 81161- 5006 Jul, Stress incontinence of urine N39.3 and Cough R05 [facility] [id number] [place] [address] 34594- 9351 Jul, [facility] [id number] [place] [address] 23040- 1702 Jul, [facility] [id number] [place] [address] 28077- 3736 Jul, [facility] [id number] [place] [address] 88585- 3171 Jul, Gastroesophageal reflux disease, esophagitis presence not specified K21.9 [facility] [address] [place] [address] 82922- 1694 Jun, Diabetic polyneuropathy associated with type 2 diabetes mellitus E11.42 [facility] [id number] [place] [address] 94416- 3445 Jun, Diabetic polyneuropathy associated with type 2 diabetes mellitus E11.42 ; Coronary artery disease involving [place] coronary artery of [place] 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 I25.118 and Paroxysmal atrial fibrillation I48.0 [id number] [place] [address] 93476- 3772 Jun, [id number] [place] [address] 46669- 0965 Jun, [facility] [id number] [place] [address] 58016 2548 Jun, Gastroenteritis K52.9 [facility] [id number] [place] [address] 56146 2546 Jun, Gastroenteritis K52.9 [facility] [address] [place] [address] 14330 2548 Jun, [facility] [id number] [place] [address] 49574 254 Jun, [facility] [address] [place] [address] 19483- 1515 Jun, Sprain of right ankle, unspecified ligament, initial encounter S93.401A ; Type 2 diabetes mellitus with diabetic neuropathy, without long-term current use of insulin E11.40 ; Atherosclerosis of [place] artery of both lower extremities with intermittent claudication I70.213 ; Atherosclerotic heart disease of [place]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 I25.118 ; Chronic atrial fibrillation I48.2 and Crohn''s disease without complication, unspecified gastrointestinal tract location K50.90 [facility] [id number] [place] [address] 99603 -4041 17 Jun, 2017 Cough R05 and Chronic obstructive pulmonary disease with acute lower respiratory infection J44.0 [facility] [id number] [place] [address] 16836- 5024 Jun, [id number] [place] [address] 26999- 1670 Jun, Coughing R05 ; Unspecified atherosclerosis of [place] arteries of extremities, unspecified extremity I70.209 ; Type 2 diabetes mellitus with diabetic peripheral angiopathy without gangrene E11.51 ; Crohn''s disease without complication, unspecified gastrointestinal tract location K50.90 ; Other chronic pancreatitis K86.1 and Chronic atrial fibrillation I48.2 [facility] [id number] [place] [address] 56492 -3783 Jun, [id number] [place] [address] 85284- 3255 Jun, Bipolar affective disorder, currently depressed, moderate F31.32 ; Vascular dementia without behavioral disturbance F01.50 and Generalized anxiety disorder F41.1 [address] [id number] [place] [address] 69668- 8332 May, Generalized anxiety disorder F41.1 [address] [address] [id number] [place] [address] 11778- 4927 May, [id number] [place] [address] 99586- 3939 May, [address] [id number] [place] [address] 63572- 7106 May, Coughing R05 [id number] [place] [address] 33259- 7913 09 May, 2017 [id number] [place] [address] 20666- 9906 May, Bipolar affective disorder, currently depressed, moderate F31.32 ; Vascular dementia without behavioral disturbance F01.50 and Generalized anxiety disorder F41.1 [id number] [place] [address] 69107- 5797 Apr, Generalized anxiety disorder F41.1 [id number] [place] [address] 24877- 3753 Apr, [id number] [place] [address] 59526- 2704 Apr, Vascular dementia without behavioral disturbance F01.50 ; Generalized anxiety disorder F41.1 and Bipolar affective disorder, currently depressed, moderate F31.32 [id number] [place] [address] 78989- 2298 Apr, Generalized anxiety disorder F41.1 [facility] [id number] [place] [address] 24997 -9875 Apr, Cough R05 and Acute exacerbation of chronic obstructive pulmonary disease (COPD) J44.1 [id number] [place] [address] 13486- 0025 Apr, [facility] [id number] [place] [address] 48447 -0170 Mar, Cough R05 and Cigarette nicotine dependence without complication F17.210 [id number] [place] [address] 72197- 3410 Mar, [id number] [place] [address] 21148- 3515 Feb, Generalized anxiety disorder F41.1 ; Major depressive disorder, recurrent episode, moderate F33.1 ; Vascular dementia without behavioral disturbance F01.50 and Unspecified psychosis F29 [id number] [place] [address] 00306- 3342 Feb, [id number] [place] [address] 73028- 2244 Feb, [id number] [place] [address] 06807- 1036 Feb, Generalized anxiety disorder F41.1 [id number] [place] [address] 00888- 9763 Feb, Generalized anxiety disorder F41.1 [address] 45084- 6206 Feb, Dizziness R42 ; Chronic fatigue R53.82 ; Postconcussion syndrome F07.81 ; Fall, initial encounter W19.XXXA and Disorientation R41.0 [address] 17057- 0083 Feb, Postconcussion syndrome F07.81 ; Injury of head, initial encounter S09.90XA ; Fall, initial encounter W19.XXXA ; Disorientation R41.0 and Acute cystitis with hematuria N30.01 [address] [address] 87848- 7959 Jan, Gastroesophageal reflux disease, esophagitis presence not specified K21.9 ; Post-menopausal Z78.0 and Migraine without aura and without status migrainosus, not intractable G43.009 [id number] [place] [address] 50696- 7645 Jan, [id number] [place] [address] 38592- 6840 Jan, Generalized anxiety disorder F41.1 ; Major depressive disorder, recurrent episode, moderate F33.1 ; Vascular dementia without behavioral disturbance F01.50 and Unspecified psychosis F29 [address] 31816- 6630 Jan, Pneumonia of left lower lobe due to infectious organism J18.1 [address] [id number] [place] [address] 05651- 0475 Jan, Migraine without aura and with status migrainosus, not intractable G43.001 [facility] [address] [address] 04 Jan, 2017 Migraine without aura and without status migrainosus, not intractable G43.009 [facility] [address] [place] [address] 90084- 0810 19 Dec, 2016 Hematoma T14.8 [facility] [id number] [place] [address] 01291- 1938 Dec, [facility] [id number] [place] [address] 66637 -6288 Nov, Fatigue, unspecified type R53.83 [address] [id number] [place] [address] 54565- 0716 Nov, Scabies B86 and Coronary artery disease involving [place] coronary artery of [place] 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 I25.118 [address] [id number] [place] [address] 30218- 0549 Nov, [facility] [id number] [place] [address] 76071- 2189 Nov, [address] [id number] [place] [address] 47158- 3455 Oct, [address] [id number] [place] [address] 37419- 0412 Oct, Generalized anxiety disorder F41.1 and Major depressive disorder, recurrent episode, moderate F33.1 [facility] [address] [place] [address] 17426- 7446 Oct, Cramp of both lower extremities R25.2 [address] [id number] [place] [address] 40878- 7216 Oct, Leg cramps R25.2 [address] [id number] [place] [address] 08163- 2021 Oct, Chronic pain syndrome G89.4 [address] [address]- 0379 17 Oct, 2016 [facility] [address] [place] [address] 32836- 1752 14 Oct, 2016 [facility] [id number] [place] [address] 29919- 1259 11 Oct, 2016 Routine gynecological examination Z01.419 and Screening for breast cancer Z12.31 [address] [id number] [place] [address] 73555- 6479 28 Sep, 2016 Diarrhea R19.7 [address] [id number] [place] [address] 79060- 8414 Sep, Back pain M54.9 [address] [id number] [place] [address] 65354- 8525 Sep, [address] [id number] [place] [address] 29647- 2649 Sep, [facility] [id number] [place] [address] 59375 -4301 August, Xeroderma Q80.9 [place] [id number] [place] [address] 84451- 9902 August, Dementia without behavioral disturbance, unspecified dementia type F03.90 [place] [id number] [place] [address] 00634- 4846 August, Chronic pain syndrome G89.4 [address] [id number] [place] [address] 73692- 2636 August, [facility] [id number] [place] [address] 03854- 3720 August, Hyperlipidemia E78.5 ; Other fatigue R53.83 and Other specified hypotension I95.89 [facility] [address], [place] [address] -1423 August, Dysuria R30.0 ; Other fatigue R53.83 and Other specified hypotension I95.89 [facility] [id number] [place] [address] 77054- 3999 August, [facility] [address] 86145- 5436 Jul, Pain in left knee M25.562 and Gastroenteritis K52.9 [facility] [address] 30873- 8393 Jul, [facility] [address] 32763- 7420 Jul, Diarrhea R19.7 [facility] [address] 37682 -2339 Jul, Spider bite, accidental or unintentional, initial encounter T63.301A [place] [address] 06198- 9036 Jul, Primary osteoarthritis of right knee M17.11 and Arthritis M19.90 [facility] [address] 89767- 3071 Jul, Generalized anxiety disorder F41.1 and Major depressive disorder, recurrent episode, moderate F33.1 [facility] [id number] [place] [address] 39199- 9624 Jul, Type 2 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 and Temporal headache R51 [facility] [id number] [place] [address] 65084- 5761 Jul, Back pain M54.9 [facility] [id number] [place] [address] 55267- 1709 Jul, [facility] [address] 64979- 6903 Jul, [facility] [id number] [place] [address] 12415- 1891 Jun, Nausea R11.0 [facility] [address] [place] [address] Jun, Acute suppurative otitis media of both ears without spontaneous rupture of tympanic membranes, recurrence not specified H66.003 and COPD exacerbation J44.1 [facility] [address] 10177- 7326 Jun, Generalized anxiety disorder F41.1 [place] [address] 93437- 4453 16 Jun, 2016 [facility] [address] 16912 -8900 Jun, [facility] [address] 83036 -1476 Jun, Shortness of breath R06.02 and COPD exacerbation J44.1 [place] [address] 59792- 7716 Jun, Eczema, unspecified type L30.9 [place] [address] 20665- 3403 Jun, [place] [address] 13746- 7210 May, [place] [id number] [place] [address] 29145- 3946 May, Muscle cramping R25.2 [place] [id number] [place] [address] 73438- 5347 May, [place] [address] 97587- 2630 Apr, Diarrhea R19.7 [place] [address] 23812- 8396 Apr, [place] [id number] [place] [address] 36494- 8179 Apr, Chronic pain syndrome G89.4 [place] [id number] [place] [address] 81283- 1289 16 Apr, 2016 Cramp of both lower extremities R25.2 and Vascular dementia without behavioral disturbance F01.50 [place] [address] 60385- 5108 Apr, Type 2 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 and Cigarette nicotine dependence without complication F17.210 [place] [address] 59384- 5336 Mar, Generalized anxiety disorder F41.1 [place] [address] 37531- 7100 Feb, Generalized anxiety disorder F41.1 and Major depressive disorder, recurrent episode, moderate F33.1 [place] [address] 01001- 5233 Feb, [facility] [address] [address]55 -5117 Feb, Dysuria R30.0 and Acute cystitis with hematuria N30.01 [place] [address] 18972- 9591 Jan, [place] [address] 40576- 5560 Jan, [place] [address] 74827- 6613 Jan, [place] [address] 46896- 7141 Jan, [facility] [address] 69205 -8163 Jan, Wasp sting, accidental or unintentional, initial encounter T63.461A [place] [address] 52097- 0588 06 Jan, 2016 Encounter for immunization Z23 [place] [address] 26909- 9398 Jan, [facility] [address], [place] [address] 1135 Jan, [facility] [id number] [place] [address] 50756- 9814 28 Dec, 2015 Generalized anxiety disorder F41.1 and Major depressive disorder, recurrent episode, moderate F33.1 [facility] [id number] [place] [address] 38655- 2749 21 Dec, 2015 Routine gynecological examination Z01.419 ; Postmenopausal Z78.0 ; Screening breast examination Z12.39 ; Osteopenia M85.80 and Breast cancer screening Z12.39 [facility] [id number] [place] [address] 09893- 4405 20 Dec, 2015 [facility] [id number] [place] [address] 77069- 2542 19 Dec, 2015 [facility] [id number] [place] [address] 70353- 6564 16 Dec, 2015 [facility] [id number] [place] [address] 83011- 5760 16 Dec, 2015 [facility] [id number] [place] [address] 74245- 1275 14 Dec, 2015 [facility] [id number] [place] [address] 24994- 8801 Dec, [facility] [id number] [place] [address] 69595- 6500 Nov, [facility] [id number] [place] [address] 28190 -4557 Nov, Cough R05 ; Other viral agents as the cause of diseases classified elsewhere B97.89 and Acute upper respiratory infection, unspecified J06.9 [facility] [address], [place] [address]- 9805 Nov, [facility] [id number] [place] [address] 58427- 9848 Nov, [facility] [address], [place] [address]- 8887 Nov, [facility] [address], [place] [address]- 4329 Nov, [facility] [address], [place] [address]- 7052 Nov, [facility] [id number] [place] [address] 20837- 6443 Oct, [facility] [id number] [place] [address] 69078- 6153 Oct, [facility] [address] [address]- 3832 Oct, [facility] [address] [place] [address] 33553- 1324 Oct, Chronic pain syndrome G89.4 [facility] [address], [place] [address]- 4704 Sep, Generalized anxiety disorder F41.1 and Major depressive disorder, recurrent episode, moderate F33.1 [facility] [address], [place] [address]- 1464 Sep, [facility] [address], [place] [address]- 0527 Sep, [facility] [address], [place] [address]- 9649 14 Sep, 2015 Generalized anxiety disorder F41.1 [facility] [address], [place] [address]- 8894 13 Sep, 2015 Cramp of both lower extremities R25.2 and Cervicalgia M54.2 [facility] [address], [place] [address]- 5222 06 Sep, 2015 Generalized anxiety disorder F41.1 [facility] [id number] [address]- 1356 Sep, [facility] [id number] [place] [address] 88968 -6851 August, Rash R21 ; Itching L29.9 and Allergic response, subsequent encounter T78.40XD [facility] [address] [id number] [place] [address] 58519- 7645 August, Primary insomnia F51.01 [facility] [id number] [place] [address] 70022 -9287 August, Rash R21 ; Itching L29.9 and Allergic response, initial encounter T78.40XA [place] [address] [id number] [place] [address] 61165- 5521 August, [place] [address] [id number] [place] [address] 22670- 0219 August, Cramp of both lower extremities R25.2 [place] [address] [id number] [place] [address] 15526- 6037 August, Back pain M54.9 [place] [address] [id number] [place] [address] 62500- 6278 August, [place] [address] [id number] [place] [address] 90661- 7448 August, [facility] [id number] [place] [address] 95463 -1520 August, Cramp of both lower extremities R25.2 [place] [address] [id number] [place] [address] 35774- 9563 August, [place] [address] [id number] [place] [address] 13747- 8379 August, Syncope R55 ; Paroxysmal atrial fibrillation I48.0 ; Dementia without behavioral disturbance, unspecified dementia type F03.90 and Chronic pain syndrome G89.4 [place] [address] [id number] [place] [address] 92057- 4506 August, Type 2 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 and Syncope R55 [facility] [id number] [place] [address] 60198- 1166 Jul, [facility] [id number] [place] [address] 89154- 7536 Jul, [facility] [id number] [place] [address] 52516- 5273 Jul, [facility] [id number] [place] [address] 23328- 5977 Jul, [facility] [id number] [place] [address] 95204- 5330 Jul, [facility] [address] [id number] [place] [address] 55198- 9875 Jul, UTI (urinary tract infection) N39.0 [facility] [address] [id number] [place] [address] 65768- 5503 Jul, [facility] [address] [id number] [place] [address] 76354- 7456 Jul, Major depressive disorder, recurrent episode, moderate F33.1 and Generalized anxiety disorder F41.1 [facility] [address] [place] [id number] [place] [address] 66230- 6508 Jul, Generalized anxiety disorder F41.1 [facility] [address] [place] [address] 69426- 9233 Jul, Diarrhea R19.7 [facility] [address] [place] [address] 13191- 7646 Jul, [facility] [address] [place] [address] 71056- 1724 Jun, [facility] [address] [place] [address] 12946- 1520 Jun, Eczema L30.9 [facility] [address], [place] [address]- 5456 Jun, [facility] [address], [place] [address]- 5996 Jun, COPD (chronic obstructive pulmonary disease) J44.9 [facility] [address], [place] [address]- 7166 Jun, [facility] [address] [place] [address] 64278- 7814 Jun, Major depressive disorder, recurrent episode, moderate F33.1 and Generalized anxiety disorder F41.1 [facility] [address], [place] [address]- 5866 May, [facility] [address], [place] [address]- 6100 May, UTI (urinary tract infection) N39.0 [facility] [address], [place] [address]- 4107 May, [facility] [address], [place] [address]- 8931 May, [facility] [address] [place] [address]- 8687 May, [facility] [address], [place] [address]- 8376 May, [facility] [address], [place] [address]- 2811 Apr, Major depressive disorder, recurrent episode, moderate F33.1 and Generalized anxiety disorder F41.1 [facility] [address], [place] [address]- 8697 Apr, COPD (chronic obstructive pulmonary disease) J44.9 [facility] [address], [place] [address]- 6966 Apr, [facility] [id number] [address]- 2655 Apr, Atrial flutter I48.92 [facility] [id number] [place] [address] 15480- 0882 Apr, [facility] [id number] [place] [address] 13652- 2192 Apr, [facility] [id number] [place] [address] 64052- 1065 Mar, [facility] [id number] [place] [address] 13309- 1127 Mar, [facility] [id number] [place] [address] 82731- 7443 Mar, [facility] [id number] [place] [address] 03460- 9124 Mar, Hyperlipidemia E78.5 ; Type 2 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 ; Major depressive disorder, recurrent episode, moderate F33.1 and Chronic pain syndrome G89.4 [facility] [id number] [place] [address] 28153- 1298 Mar, [facility] [id number] [place] [address] 69930- 9182 Mar, [facility] [id number] [place] [address] 89941- 7433 Mar, [facility] [id number] [place] [address] 78038- 9756 Mar, [facility] [id number] [place] [address] 23309- 2610 Feb, COPD (chronic obstructive pulmonary disease) J44.9 and Back pain M54.9 [facility] [address], [place] [address]- 3497 Feb, [facility] [id number] [place] [address] 16403- 1904 Feb, [facility] [address], [place] [address]- 4748 Feb, [facility] [id number] [place] [address] 93380- 1579 Feb, [facility] [address], [place] [address]- 5086 Feb, [facility] [id number] [place] [address] 14737- 4549 Feb, [facility] [id number] [place] [address] 81970- 2433 Feb, [facility] [id number] [place] [address] 37668- 0953 Feb, [facility] [id number] [place] [address] 57959- 2205 Feb, Diabetes E11.9 ; Back pain M54.9 and COPD (chronic obstructive pulmonary disease) J44.9 [facility] [address] [place] [address] 98925- 0991 Jan, [facility] [id number] [place] [address] 33240- 4469 Jan, Major depression, recurrent F33.9 and Generalized anxiety disorder F41.1 [facility] [address] [place] [address] 93573- 9892 Jan, Chronic pain G89.29 [facility] [address], [place] [address]- 5488 Jan, [facility] [id number] [place] [address] 03597- 5925 Jan, [facility] [address] [place] [address] 98169- 5368 Jan, [facility] [address], [place] [address]- 0089 Jan, [facility] [id number] [place] [address] 03839- 9082 Jan, Nicotine dependence F17.200 [facility] [address] 88464- 2676 Jan, Nicotine dependence F17.200 and Back pain M54.9 [facility] [id number] [place] [address] 03763- 7987 Jan, [facility] [id number] [place] [address] 65146- 9003 28 Dec, 2014 [facility] [id number] [place] [address] 81697- 4263 25 Dec, 2014 Anxiety, generalized 300.02 and Major depression, recurrent 296.30 [facility] [id number] [place] [address] 33218- 8418 24 Dec, 2014 [facility] [id number] [place] [address] 11301- 7839 21 Dec, 2014 [facility] [id number] [place] [address] 28186- 5256 17 Dec, 2014 [facility] [id number] [place] [address] 05142- 6364 15 Dec, 2014 [facility] [id number] [place] [address] 07011- 3021 14 Dec, 2014 [facility] [id number] [place] [address] 64509- 3193 11 Dec, 2014 [facility] [id number] [place] [address] 35151- 8994 10 Dec, 2014 [facility] [id number] [place] [address] 25680- 4369 08 Dec, 2014 Skin tear 879.8 [facility] [address] [place] [address] 70213- 3156 08 Dec, 2014 Routine gynecological examination V72.31 ; Breast cancer screening V76.10 and Family history of breast cancer in first degree relative V16.3 [facility] [address], [place] [address]- 5461 Dec, [facility] [address] [place] [address] 47648- 5358 Dec, [facility] [address], [place] [address]- 5010 Nov, [facility] [id number] [place] [address] 74180- 9746 Nov, [facility] [address] [place] [address] 39204- 2473 Nov, Poor balance 781.99 and Vascular dementia, uncomplicated 290.40 [facility] [id number] [place] [address] 26865- 5596 Nov, [facility] [id number] [place] [address] 07362- 7991 Nov, Major depression, recurrent 296.30 and Anxiety, generalized 300.02 [facility] [id number] [place] [address] 66600- 1780 Nov, [facility] [id number] [place] [address] 18694- 9395 Nov, [facility] [address], [place] [address]- 9036 Nov, [facility] [address] [place] [address] 20336- 3127 Nov, [facility] [address], [place] [address]- 3475 Nov, Vascular dementia, uncomplicated 290.40 and Lumbago 724.2 [facility] [address], [place] [address]- 1224 Nov, [facility] [address] [place] [address] 90140- 9468 Nov, [facility] [address], [place] [address]- 4609 Nov, [facility] [address], [place] [address]- 9589 Oct, [facility] [address], [place] [address]- 1442 Oct, [facility] [id number] [place] [address] 04184- 3856 Oct, [facility] [address], [place] [address]- 6524 Oct, COPD (chronic obstructive pulmonary disease) 496 and Hyperlipidemia 272.4 [facility] [address], [place] [address]- 9335 Oct, Major depression, recurrent 296.30 and Anxiety, generalized 300.02 [facility] [id number] [address]- 3962 Oct, [facility] [address], [place] [address]- 7174 Oct, [facility] [address], [place] [address]- 2944 Oct, [facility] [address], [place] [address]- 4442 Sep, Lumbago 724.2 and Anxiety state, unspecified 300.00 [facility] [address], [place] [address]- 1370 Sep, [facility] [address], [place] [address]- 9254 Sep, [facility] [address], [place] [address]- 3906 August, [facility] [id number] [address]- 3501 August, Major depression, recurrent 296.30 ; Anxiety, generalized 300.02 and No condition on [place] II V71.09 [facility] [id number] [address]- 4750 August, [facility] [address] [facility] [id number] [place] [address]96 August, [facility] [address], [place] [address]- 2953 Jul, [facility] [address] [id number] [place] [address]- 9832 Jul, [facility] [id number] [place] [address]- 8081 Jul, [facility] [id number] [place] [address]- 9800 Jun, [facility] [address] [place] [address]- 9550 Jun, [facility] [id number] [address]- 0433 Jun, [facility] [address] [place] [address]- 9867 Jun, [facility] [id number], [place] [address]- 8236 Jun, [facility] [address] [place] [address]- 0331 Jun, [facility] [id number], [place] [address]- 8037 23 Jun, 2014 [facility] [id number]- 7777 17 Jun, 2014 [facility] [address] [id number] [address] Jun, [facility] [id number] 8850 Jun, [facility] [place] [facility] [address] [id number] [place] [address]- 7902 10 Jun, 2014 [facility] [place] [facility] [address] [id number] [place] [address]- 4596 10 Jun, 2014 [facility] [place] [facility] [address] [id number] [place] [address]- 9718 07 Jun, 2014 [facility] [place] [facility] [address] [id number] [place] [address]- 3100 07 Jun, 2014 [facility] [place] [facility] [address] [id number] [place] [address]- 4228 Jun, [facility] [place] [facility] [address] [id number] [place] [address]- 7397 Jun, 2014 [facility] [place] [facility] [address] [id number] [place] [address]- 7578 May, [facility] [place] [facility] [address] [id number] [place] [address]- 3813 May, 2014 [facility] [place] [facility] [address] [id number] [place] [address]- 6164 May, [facility] [place] [facility] [address] [id number] [place] [address] May, 2014 [facility] [place] [facility] [address] [id number] [place] [address] May, 2014 [facility] [place] [facility] [address] [id number] [place] [address] May, 2014 [facility] [place] [facility] [address] [id number] [place] [address] May, 2014 [facility] [place] [facility] [address] [id number] [place] [address] 12 May, 2014 [facility] [place] [facility] [address] [id number] [place] [address] May, 2014 [facility] [place] [facility] [address] [id number] [place] [address]- [address] May, 2014 [facility] [place] [facility] [address] [id number] [place] [address] May, 2014 [facility] [place] [facility] [address] [id number] [place] [address] May, 2014 [facility] [place] [facility] [address] [id number] [place] [address] May, 2014 [facility] [place] [facility] [address] [id number] [place] [address] May, [facility] [place] [facility] [address] [id number] [place] [address] Apr, [facility] [place] [facility] [address] [id number] [place] [address] Apr, [facility] [place] [facility] [address] [id number] [place] [address] Apr, [facility] [place] [facility] [address] [id number] [place] [address]- [address] Apr, [facility] [place] [facility] [address] [id number] [place] [address] Apr, [facility] [place] [facility] [address] [id number] [place] [address] Apr, [facility] [place] [facility] [address] [id number] [place] [address] Apr, [facility] [place] [facility] [address] [id number] [place] [address] Apr, [facility] [place] [facility] [address] [id number] [place] [address]- [address] Apr, [facility] [place] [facility] [address] [id number] [place] [address] Apr, [facility] [place] [facility] [address] [id number] [place] [address] Apr, [facility] [place] [facility] [address] [id number] [place] [address] Apr, [facility] [place] [facility] [address] [id number] [place] [address] Mar, [facility] [place] [facility] [address] [id number] [place] [address]- [address] 31 Mar, 2014 [facility] [place] [facility] [address] [id number] [place] [address] 30 Mar, 2014 [facility] [place] [facility] [address] [id number] [place] [address] 30 Mar, 2014 [facility] [place] [facility] [address] [id number] [place] [address] Mar, [facility] [place] [facility] [address] [id number] [place] [address] Mar, [facility] [place] [facility] [address] [id number] [place] [address] Mar, [facility] [place] [facility] [address] [id number] [place] [address] 19 Mar, 2014 [facility] [place] [facility] [address] [id number] [place] [address] 6[address] 15 Mar, 2014 [facility] [place] [facility] [address] [id number] [place] [address]- 1339 15 Mar, 2014 [facility] [place] [facility] [address] [id number] [place] [address]- 5407 15 Mar, 2014 [facility] [place] [facility] [address] [id number] [place] [address]- 7094 15 Mar, 2014 [facility] [place] [facility] [address] [id number] [place] [address]- 2841 15 Mar, 2014 [facility] [place] [facility] [address] [id number] [place] [address]- 8696 15 Mar, 2014 [facility] [place] [facility] [address] [id number] [place] [address]- 0178 Mar, [facility] [place] [facility] [address] [id number] [place] [address]- 4427 Mar, [facility] [place] [facility] [address] [id number] [place] [address]- 0760 Mar, [facility] [place] [facility] [address] [id number] [place] [address]- 2182 Mar, [facility] [place] [facility] [address] [id number] [place] [address]- 7090 Mar, [facility] [place] [facility] [address] [id number] [place] [address]- 0455 Mar, [facility] [place] [facility] [address] [id number] [place] [address]- 0333 Feb, [facility] [place] [facility] [address] [id number] [place] [address]- 2796 Feb, [facility] [place] [facility] [address] [id number] [place] [address]- 4465 Feb, [facility] [place] [facility] [address] [id number] [place] [address]- 4023 Feb, [facility] [place] [facility] [address] [id number] [place] [address] 1955 Feb, [facility] [place] [facility] [address] [id number] [place] [address]- 6266 Feb, [facility] [place] [facility] [address] [id number], [place] [address] 3[address] Feb, [facility] [place] [facility] [address] [id number] [place] [address]- 9662 Feb, [facility] [place] [facility] [address] [id number] [place] [address]- 8198 Feb, [facility] [place] [facility] [address] [id number], [place] [address]- 5396 Feb, [facility] [place] [facility] [address] [id number] [place] [address]- 6879 Feb, [facility] [place] [facility] [address] [id number] [place] [address] Feb, [facility] [place] [facility] [address] [id number] [place] Feb, [facility] [place] [facility] [address] [id number] [place] [address]- 6038 Feb, [facility] [place] [facility] [address] [id number] [place] [address]- 7330 Feb, [facility] [place] [facility] [address] [id number] [place] [address]- 4339 Feb, [facility] [place] [facility] [address] [id number] [place] [address]- 6179 Feb, [facility] [place] [facility] [address] [id number] [place] [address]- 7392 Jan, [facility] [place] [facility] [address] [id number] [place] [address]- 5698 Jan, [facility] [place] [facility] [address] [id number] [place] [address]- 7112 Jan, [facility] [place] [facility] [address] [id number] [place] [address]- 1034 Jan, [facility] [place] [facility] [address] [id number] [place] [address]- 9781 Jan, [facility] [place] [facility] [address] [id number] [place] [address]- 4279 Jan, [facility] [place] [facility] [address] [id number] [place] [address]- 7043 16 Jan, 2014 [facility] [place] [facility] [address] [id number] [place] [address] 16 Jan, 2014 [facility] [place] [facility] [address] [id number] [place] [address]- 0694 Jan, [facility] [place] [facility] [address] [id number] [place] [address]- 0096 Jan, [facility] [place] [facility] [address] [id number] [place] [address]- 4103 Jan, [facility] [place] [facility] [address] [id number] [place] [address]- 4347 Dec, [facility] [place] [facility] [address] [id number] [place] [address]- 9306 Dec, [facility] [place] [facility] [address] [id number] [place] [address]- 2878 Nov, [facility] [place] [facility] [address] [id number] [place] [address]- 1407 Nov, [facility] [place] [facility] [address] [id number] [place] [address]- 8916 Nov, [facility] [place] [facility] [address] [id number] [place] [address]- 3630 Nov, [facility] [place] [facility] [address] [id number] [place] [address]- 2681 Nov, [facility] [place] [facility] [address] [id number] [place] [address]- 8141 Nov, [facility] [place] [facility] [address] [id number], [place] [address]- 4[address] Nov, [facility] [place] [facility] [address] [id number], [place] [address]- 9772 Oct, [facility] [place] [facility] [address] [id number] [place] [address]- 4713 Oct, [facility] [place] [facility] [address] [id number], [place] [address]- 0923 Oct, [facility] [place] [facility] [address] [id number] [place] [address] Oct, [facility] [place] [facility] [address] [id number] [place] [address]- 2479 30 Sep, 2013 [facility] [place] [facility] [address] [id number] [place] [address]- 3539 Sep, [facility] [place] [facility] [address] [id number] [place] [address]- 4336 Sep, [facility] [place] [facility] [address] [id number] [place] [address]- 9795 Sep, [facility] [place] [facility] [address] [id number] [place] [address]- 8861 Sep, [facility] [place] [facility] [address] [id number] [place] [address]- 8461 Sep, [facility] [place] [facility] [address] [id number] [place] [address]- 8499 Sep, [facility] [place] [facility] [address] [id number] [place] [address]- 2880 Sep, [facility] [place] [facility] [address] [id number] [place] [address]- 1180 Sep, [facility] [place] [facility] [address] [id number] [place] [address]- 5325 Sep, [facility] [place] [facility] [address] [id number] [place] [address]- 7764 Sep, [facility] [place] [facility] [address] [id number] [place] [address]- 4119 Sep, [facility] [place] [facility] [address] [id number] [place] [address]- 2205 Sep, [facility] [place] [facility] [address] [id number] [place] [address]- 6552 Sep, [facility] [place] [facility] [address] [id number] [place] [address]- 9997 August, [facility] [place] [facility] [address] [id number] [place] [address]- 8887 August, [facility] [place] [facility] [address] [id number] [place] [address]- 2417 August, [facility] [address] [id number] [place] [address]- 9501 August, [facility] [address] [id number] [place] [address]- 0329 August, [facility] [address] [id number] [place] [address]- 1970 August, [facility] [address] [id number] [place] [address]- 2504 August, [facility] [address] [id number] [place] [address]- 3788 August, [facility] [address] [id number] [place] [address]- 3268 August, [facility] [address] [id number] [place] [address]- 2017 August, [facility] [address] [id number] [place] [address]- 5163 August, [facility] [address] [id number] [place] [address]- 3484 August, [facility] [address] [id number] [place] [address]- 9145 August, [facility] [address] [id number] [place] [address]- 0096 August, [facility] [place] [facility] [address] [id number] [place] [address]- 2021 August, [facility] [place] [facility] [address] [id number] [place] [address]- 1859 August, [facility] [place] [facility] [address] [id number] [place] [address]- 1027 August, [facility] [place] [facility] [address] [id number] [place] [address]- 4956 August, [facility] [place] [facility] [address] [id number] [place]85 August, [facility] [place] [facility] [address] [id number] [place] [address]- 4251 Jul, [facility] [place] [facility] [address] [id number] [place] [address]- 7598 Jul, [facility] [place] [facility] [address] [id number] [place] [address]- 8662 Jul, [facility] [place] [facility] [address] [id number] [place] [address]- 4209 Jul, [facility] [place] [facility] [address] [id number] [place] [address]- 1708 Jun, [facility] [place] [facility] [address] [id number] [place] [address]- 5396 Jun, [facility] [place] [facility] [address] [id number] [place] [address]- 0166 Jun, [facility] [place] [facility] [address] [id number] [place] [address]- 1789 Jun, [facility] [place] [facility] [address] [id number] [place] [address]- 5927 Jun, [facility] [place] [facility] [address] [id number] [place] [address]- 6958 Jun, [facility] [place] [facility] [address] [id number] [place] [address]- 6815 Jun, [facility] [place] [facility] [address] [id number] [place] [address]- 8817 Jun, [facility] [place] [facility] [address] [id number] [place] [address]- 6508 Jun, [facility] [place] [facility] [address] [id number] [place] [address]- 9039 Jun, [facility] [place] [facility] [address] [id number] [place] [address]- 6621 May, [facility] [place] [facility] [address] [id number] [place] [address]- 9326 May, [facility] [place] [facility] [address] [id number] [place] [address]- 6576 May, [facility] [place] [facility] [address] [id number] [place] [address]- 0196 May, [facility] [place] [facility] [address] [id number] [place] [address]- 2547 May, [facility] [place] [facility] [address] [id number] [place] [address]- 3816 May, [facility] [place] [facility] [address] [id number] [place] [address]- 3112 May, [facility] [place] [facility] [address] [id number] [place] [address]- 1940 May, [facility] [place] [facility] [address] [id number] [place] [address]- 8706 May, [facility] [place] [facility] [address] [id number] [place] [address]- 8464 May, [facility] [place] [facility] [address] [id number] [place] [address]- 0686 18 May, 2013 [facility] [place] [facility] [address] [id number] [place] [address]- 5754 17 May, 2013 [facility] [place] [facility] [address] [id number] [place] [address]- 2546 May, [facility] [place] [facility] [address] [id number] [place] [address]- 2820 May, [facility] [place] [facility] [address] [id number] [place] [address]- 2906 10 May, 2013 [facility] [place] [facility] [address] [id number] [place] [address]- 3445 07 May, 2013 [facility] [address] [id number] [place] [address]- 3775 07 May, 2013 [facility] [address] [id number] [place] [address]- 4645 17 Apr, 2013 [facility] [address] [id number] [place] [address]- 6581 Apr, [facility] [address] [id number] [place] [address]- 7422 Apr, [facility] [address] [id number] [place] [address]- 3062 Apr, [facility] [address] [id number] [place] [address]- 3831 Apr, [facility] [address] [id number] [place] [address]- 7503 Apr, [facility] [address] [id number] [place] [address]- 4679 Apr, [facility] [address] [id number] [place] [address]- 4005 Mar, [facility] [address] [id number] [place] [address]- 1655 Mar, [facility] [address] [id number] [place] [address]- 8536 Mar, [facility] [address] [id number] [place] [address]- 4499 Mar, [facility] [address] [id number] [place] [address]- 5898 Mar, [facility] [address] [id number] [place] [address]- 7526 Mar, [facility] [address] [id number] [place] [address]- 3036 Mar, [facility] [place] [facility] [address] [id number] [place] [address]- 5749 Mar, [facility] [place] [facility] [address] [id number] [place] [address]- 3250 Mar, [facility] [place] [facility] [address] [id number] [place] [address]- 8074 Mar, [facility] [place] [facility] [address] [id number] [place] [address]- 1017 Mar, [facility] [address] [id number] [place] [address]- 6270 Feb, [facility] [place] [facility] [address] [id number] [place] [address]- 4760 Feb, [facility] [address] [id number] [place] [address]- 0762 Feb, [facility] [address] [id number] [place] [address]- 7182 20 Feb, 2013 [facility] [place] [facility] [address] [id number] [place] [address]- 4996 Feb, [facility] [place] [facility] [address] [id number] [place] [address]- 0710 19 Feb, 2013 [facility] [place] [facility] [address] [id number] [place] [address]- 7605 15 Feb, 2013 [facility] [place] [facility] [address] [id number], [place] [address]- 0907 14 Feb, 2013 [facility] [place] [facility] [address] [id number] [place] [address]- 0772 14 Feb, 2013 [facility] [place] [facility] [address] [id number], [place] [address]- 4822 13 Feb, 2013 [facility] [place] [facility] [address] [id number], [place] [address]- 0173 13 Feb, 2013 [facility] [place] [facility] [address] [id number], [place] [address]- 5547 Feb, [facility] [place] [facility] [address] [id number] [place] [address]- 2442 Feb, [facility] [place] [facility] [address] [id number] [place] [address]- 0844 Feb, [facility] [place] [facility] [address] [id number] [place] [address]- 6649 Feb, [facility] [place] [facility] [address] [id number] [place] [address]- 5359 Feb, [facility] [place] [facility] [address] [id number] [place] [address]- 6497 Jan, [facility] [place] [facility] [address] [id number] [place] [address]- 2798 Jan, [facility] [place] [facility] [address] [id number] [place] [address]- 6027 Jan, [facility] [place] [facility] [address] [id number] [place] [address]- 3094 Jan, [facility] [place] [facility] [address] [id number] [place] [address]- 6458 Jan, [facility] [place] [facility] [address] [id number] [place] [address]- 6208 Jan, [facility] [place] [facility] [address] [id number], [place] [address]- 5735 Jan, [facility] [place] [facility] [address] [id number], [place] [address]- 5326 Jan, [facility] [place] [facility] [address] [id number] [place] [address]- 2538 10 Jan, 2013 [facility] [place] [facility] [address] [id number] [place] [address]- 8862 27 Dec, 2012 [facility] [place] [facility] [address] [id number] [place] [address]- 1394 20 Dec, 2012 [facility] [place] [facility] [address] [id number] [place] [address]- 4446 19 Dec, 2012 [facility] [place] [facility] [address] [id number] [place] [address]- 0476 10 Dec, 2012 [facility] [place] [facility] [address] [id number] [place] [address]- 4486 04 Dec, 2012 [facility] [place] [facility] [address] [id number] [place] [address]- 1419 03 Dec, 2012 [facility] [place] [facility] [address] [id number] [place] [address]- 3131 Nov, [facility] [place] [facility] [address] [id number] [place] [address]- 5937 Nov, [facility] [place] [facility] [address] [id number] [place] [address]- 1113 Nov, [facility] [place] [facility] [address] [id number] [place] [address]- 3089 Nov, [facility] [place] [facility] [address] [id number] [place] [address]- 5793 Nov, [facility] [place] [facility] [address] [id number] [place] [address]- 0026 Nov, [facility] [place] [facility] [address] [id number] [place] [address]- 8613 Nov, [facility] [place] [facility] [address] [id number] [place] [address]- 8944 Nov, [facility] [place] [facility] [address] [id number] [place] [address]- 2541 14 Nov, 2012 [facility] [place] [facility] [address] [id number] [place] [address]- 5116 Nov, [facility] [place] [facility] [address] [id number] [place] [address]- 2546 Oct, [facility] [place] [facility] [address] [id number] [place] [address]- 9514 Oct, [facility] [place] [facility] [address] [id number] [place] [address]- 3238 Oct, [facility] [place] [facility] [address] [id number] [place] [address]- 4385 Oct, [facility] [place] [facility] [address] [id number] [place] [address]- 3449 Oct, [facility] [place] [facility] [address] [id number] [place] [address]- 9138 Oct, [facility] [place] [facility] [address] [id number] [place] [address]- 4787 Oct, [facility] [place] [facility] [address] [id number] [place] [address]- 1415 Oct, [facility] [place] [facility] [address] [id number] [place] [address]- 8516 Sep, [facility] [place] [facility] [address] [id number] [place] [address]- 9292 Sep, [facility] [place] [facility] [address] [id number] [place] [address]- 2400 Sep, [facility] [place] [facility] [address] [id number] [place] [address]- 2192 Sep, [facility] [place] [facility] [address] [id number] [place] [address]- 2001 Sep, [facility] [place] [facility] [address] [id number], [place] [address]- 9052 Sep, [facility] [place] [facility] [address] [id number] [place] [address]- 4934 Sep, [facility] [place] [facility] [address] [id number] [place] [address]- 3[address] Sep, [facility] [place] [facility] [address] [id number] [place] [address] August, [facility] [place] [facility] [address] [id number] [place] [address] August, [facility] [address] [id number] [place] [address] August, [facility] [address] [id number] [place] [address] August, [facility] [address] [id number] [place] [address] August, [facility] [address] [id number] [place] [address] Jul, [facility] [address] [id number] [place] [address] Jul, [facility] [address] [id number] [place] [address] Jul, [facility] [address] [id number] [place] [address] Jul, [facility] [address] [id number] [place] [address] Jul, [facility] [address] [id number] [place] [address] 18 Jun, 2012 [facility] [address] [id number] [place] [address] 18 Jun, 2012 [facility] [address] [id number] [place] [address]- [address] 15 Jun, 2012 [facility] [address] [id number] [place] [address]- [address] 14 Jun, 2012 [facility] [place] [facility] [address] [id number] [place] [address] 12 Jun, 2012 [facility] [place] [facility] [address] [id number] [place] [address] 08 Jun, 2012 [facility] [address] [id number] [place] [address] 08 Jun, 2012 [facility] [address] [id number] [place] [address] Jun, [facility] [address] [id number] [place] [address] Jun, [facility] [address] [id number] [place] [address] May, [facility] [address] [id number] [place] [address] May, [facility] [address] [id number] [place] [address] May, [facility] [address] [id number] [place] [address] May, [facility] [address] [id number] [place] [address] Apr, [facility] [address] [id number] [place] [address] Apr, [facility] [address] [id number] [place] [address] Apr, [facility] [address] [id number] [place] [address] Apr, [facility] [address] [id number] [place] [address] Apr, [facility] [address] [id number] [place] [address]- [address] Apr, [facility] [address] [id number] [place] [address] Apr, [facility] [address] [id number] [place] [address] Mar, [facility] [address] [place] [id number] Mar, [facility] [address] [id number] [place] [address] Mar, [facility] [place] [facility] [address] [id number] [place] [address] Mar, [facility] [place] [facility] [address] [id number] [place] [address] Mar, [facility] [place] [facility] [address] [id number] [place] [address] Mar, [facility] [place] [facility] [address] [id number] [place] [address] Mar, [facility] [place] [facility] [address] [id number] [place] [address]- [address]85 Mar, [facility] [place] [facility] [address] [id number] [place] [address] Mar, [facility] [place] [facility] [address] [id number] [place] [address]- [address] Mar, [facility] [place] [facility] [address] [id number] [place] [address]- [address] Mar, [facility] [place] [facility] [address] [id number] [place] [address]- [address] Mar, [facility] [place] [facility] [address] [id number] [place] [address]- 79[address] Mar, [facility] [place] [facility] [address] [id number] [place] [address] Mar, [facility] [place] [facility] [address] [id number], [place] [address] Mar, [facility] [place] [facility] [address] [id number] [place] [address] Mar, [facility] [place] [facility] [address] [id number] [place] [address]- [address] Mar, [facility] [place] [facility] [address] [id number] [place] [address]- [address] Feb, [facility] [place] [facility] [address] [id number] [place] [address] Feb, [facility] [place] [facility] [address] [id number] [place] [address]- 4947 Feb, [facility] [place] [facility] [address] [id number] [place] [address] Feb, [facility] [place] [facility] [address] [id number] [place] [address] Feb, [facility] [place] [facility] [address] [id number] [place] [address]- [address] Feb, [facility] [place] [facility] [address] [id number] [place] [address]- [address] Feb, [facility] [place] [facility] [address] [id number] [place] [address]- 264[address] Feb, [facility] [place] [facility] [address] [id number] [place] [address] Feb, [facility] [place] [facility] [address] [id number] [place] [address]- 1429 Feb, [facility] [place] [facility] [address] [id number] [place] [address]- 0[address] Feb, [facility] [place] [facility] [address] [id number] [place] [address]- 69[address] Feb, [facility] [place] [facility] [address] [id number] [place] [address]- [address] Feb, [facility] [place] [facility] [address] [id number], [place] [address] Feb, [facility] [place] [facility] [address] [id number] [place] [address]- [address] Feb, [facility] [place] [facility] [address] [id number] [place] [address]- [address] Feb, [facility] [place] [facility] [address] [id number], [place] [address] Jan, [facility] [place] [facility] [address] [id number] [place] [address]- 1532 Jan, [facility] [place] [facility] [address] [id number] [place] [address]- [address] Jan, [facility] [place] [facility] [address] [id number] [place] [address]- 69[address] Jan, [facility] [place] [facility] [address] [id number] [place] [address]- 0[address] Jan, [facility] [place] [facility] [address] [id number] [place] [address]- [address] Jan, [facility] [place] [facility] [address] [id number] [place] [address]- [address] Jan, [facility] [place] [facility] [address] [id number] [place] [address]- 7914 Jan, [facility] [place] [facility] [address] [id number] [place] [address]- 56[address] Jan, [facility] [place] [facility] [address] [id number] [place] [address] Jan, [facility] [place] [facility] [address] [id number] [place] [address] Jan, [facility] [place] [facility] [address] [id number] [place] [address] Jan, [facility] [place] [facility] [address] [id number], [place] [address] Jan, [facility] [place] [facility] [address] [id number] [place] [address] Jan, [facility] [place] [facility] [address] [id number] [place] [address] Jan, [facility] [place] [facility] [address] [id number] [place] [address] 8773 Jan, [facility] [place] [facility] [address] [id number], [place] [address] 04 Jan, 2012 [facility] [place] [facility] [address] [id number] [place] [address] 21 Dec, 2011 [facility] [place] [facility] [address] [id number] [place] [address]136 20 Dec, 2011 [facility] [place] [facility] [address] [id number] [place] [address] 2546 18 Dec, 2011 [facility] [place] [facility] [address] [id number] [place] [address] 2546 18 Dec, 2011 [facility] [place] [facility] [address] [id number] [place] [address] 2546 10 Dec, 2011 [facility] [place] [facility] [address] [id number] [place] [address] 9826 10 Dec, 2011 [facility] [place] [facility] [address] [id number] [place] [address]- 2062 10 Dec, 2011 [facility] [place] [facility] [address] [id number] [place] [address] 7038 07 Dec, 2011 [facility] [place] [facility] [address] [id number] [place] [address] 2660 30 Nov, 2011 [facility] [place] [facility] [address] [id number] [place] [address] 6419 Nov, [facility] [place] [facility] [address] [id number] [place] [address] 0676 Nov, [facility] [place] [facility] [address] [id number] [place] [address]- 2541 Nov, [facility] [place] [facility] [address] [id number] [place] [address] 2546 Nov, [facility] [place] [facility] [address] [id number] [place] [address]- 8516 Nov, [facility] [place] [facility] [address] [id number] [place] [address]- [address]44 30 Oct, 2011 [facility] [place] [facility] [address] [id number] [place] [address] 6880 30 Oct, 2011 [facility] [address] [id number] [place] [address] 5202 Oct, [facility] [place] [facility] [address] [id number] [place] [address] 2406 Oct, [facility] [address] [id number] [place] [address] 7185 Oct, [facility] [place] [facility] [address] [id number] [place] [address] 7098 Oct, [facility] [address] [id number] [place] [address]- 9518 Oct, [facility] [place] [facility] [address] [id number] [place] [address]- 8575 Sep, [facility] [place] [facility] [address] [id number] [place] [address]- 1026 Sep, [facility] [place] [facility] [address] [id number] [place] [address]- 6493 Sep, [facility] [place] [facility] [address] [id number] [place] [address]- 0663 Sep, [facility] [address] [id number] [place] [address] 1222 Sep, [facility] [place] [facility] [address] [id number] [place] [address]- 2542 15 Sep, 2011 [facility] [place] [facility] [address] [id number] [place] [address] 7649 14 Sep, 2011 [facility] [place] [facility] [address] [id number] [place] [address]- 0698 11 Sep, 2011 [facility] [place] [facility] [address] [id number] [place] [address]- 1773 05 Sep, 2011 [facility] [place] [facility] [address] [id number] [place] [address]- 0467 Sep, [facility] [address] [id number] [place] [address] 7954 August, [facility] [place] [facility] [address] [id number] [place] [address] 2346 August, [facility] [place] [facility] [address] [id number] [place] [address]- 0344 August, [facility] [place] [facility] [address] [id number] [place] [address] 8036 August, [facility] [address] [id number] [place] [address]- 4562 August, [facility] [place] [facility] [address] [id number] [place] [address]- 0123 Jul, [facility] [place] [facility] [address] [id number] [place] [address]- 8003 Jul, [facility] [address] [id number] [place] [address]- 4899 Jul, [facility] [place] [facility] [address] [id number] [place] [address]- 2131 Jul, [facility] [place] [facility] [address] [id number] [place] [address]- 7761 Jul, [facility] [place] [facility] [address] [id number] [place] [address] 5222 Jul, [facility] [place] [facility] [address] [id number], [place] [address]- [address] Jul, [facility] [place] [facility] [address] [id number] [place] [address]- 9889 Jun, [facility] [place] [facility] [address] [id number] [place] [address]- 6971 Jun, [facility] [place] [facility] [address] [id number] [place] [address]- 1707 Jun, [facility] [place] [facility] [address] [id number], [place] [address] Jun, [facility] [place] [facility] [address] [id number] [place] [address]- 2312 Jun, [facility] [place] [facility] [address] [id number] [place] [address]- 0416 May, [facility] [place] [facility] [address] [id number] [place] [address]- 8436 May, [facility] [place] [facility] [address] [id number] [place] [address]- 3818 May, [facility] [place] [facility] [address] [id number] [place] [address]- 4856 May, [facility] [place] [facility] [address] [id number] [place] [address]- 4245 May, [facility] [place] [facility] [address] [facility] [id number] [place] [address]- 7210 May, [facility] [place] [facility] [address] [id number] [place] [address]- 1279 Apr, [facility] [place] [facility] [address] [facility] [id number] [place] [address]- 7641 Mar, [facility] [place] [facility] [address] [facility] [id number] [place] [address]- 0499 Feb, [facility] [place] [facility] [address] [id number] [place] [address] 2549 Feb, [facility] [place] [facility] [address] [id number] [place] [address]- 2540 Feb, [facility] [place] [facility] [address] [id number] [place] [address]- 9931 Feb, [facility] [place] [facility] [address] [facility] [id number] [place] [address]- 7306 Jan, [facility] [place] [facility] [address] [id number] [place] [address]- 0202 Jan, [facility] [place] [facility] [address] [id number] [place] [address]- 6519 26 Jan, 2011 [facility] [address] [id number] [place] [address] 24 Jan, 2011 [facility] [address] [id number] [place] [address]- 2035 14 Jan, 2011 [facility] [address] [id number] [place] [address]- 8529 19 Dec, 2010 [facility] [address] [id number] [place] [address]- 9919 Oct, [facility] [address] [id number] [place] [address]- 3465 August, [facility] [address] [id number] [place] [address]- 4513 29 Mar, 2010 [facility] [address] [id number] [place] [address]- 9211 27 Mar, 2010 [facility] [address] [id number] [place] [address]- 2061 16 Mar, 2010 [facility] [address] [id number] [place] [address]- 1911 15 Mar, 2010 [facility] [address] [id number] [place] [address]- 0895 15 Mar, 2010 [facility] [place] [facility] [address] [id number] [place] [address]- 4812 08 Mar, 2010 [facility] [place] [facility] [address] [id number] [place] [address]- 2711 03 Mar, 2010 [facility] [place] [facility] [address] [id number] [place] [address]- 0775 24 Feb, 2010 [facility] [place] [facility] [address] [id number] [place] [address]- 9833 24 Feb, 2010 [facility] [place] [facility] [address] [id number], [place] [address]- 5527 15 Feb, 2010 [facility] [place] [facility] [address] [id number] [place] [address]- 7685 19 Jan, 2010 [facility] [place] [facility] [address] [id number], [place] [address]- 2810 Jan, [facility] [place] [facility] [address] [id number] [place] [address]- 5130 Jan, [facility] [place] [facility] [address] [id number], [place] [address]- 7344 Nov, [facility] [place] [facility] [address] [id number] [place] [address]- 9608 Sep, [facility] [place] [facility] [address] [id number], [place] [address]- 8375 August, [facility] [place] [facility] [address] [id number], [place] [address]- 8615 30 Mar, 2009 [facility] [place] [facility] [address] [id number], [place] [address]- 5954 Mar, [facility] [place] [facility] [address] [id number], [place] [address]- 8540 17 Feb, 2009 [facility] [place] [facility] [address] [id number], [place] [address]- 8780 Feb, [facility] [place] [facility] [address] [id number], [place] [address]- 5290 10 Feb, 2009 [facility] [place] [facility] [address] [id number], [place] [address]- 9563 10 Feb, 2009 [facility] [place] [facility] [address] [id number], [place] [address]- 6205 06 Feb, 2009 [facility] [place] [facility] [address] [id number], [place] [address]- 9046 27 Jan, 2009 [facility] [place] [facility] [address] [id number], [place] [address]- 2145 Jan, [facility] [place] [facility] [address] [id number], [place] [address]- 9930 Jan, [facility] [address] [id number], [place] [address]- 4248 Jan, [facility] [id number], [place] [address]- 9403 Nov, [facility] [id number], [place] [address]- 4378 Sep, [facility] [id number], [place] [address] 1924 August, [facility] [id number], [place] [address] Jul, [facility] [id number], [place] [address]- 1364 May, IMMUNIZATIONS No Known Immunizations SOCIAL HISTORY Never Assessed REASON FOR VISIT PA PLAN OF CARE VITAL SIGNS MEDICATIONS Unknown [...] Knee Surgery 07/16/17 Hospitalization History [facility] [place]- left hand/wrist swelling 10/09/2017
--- OUTSIDE RECORDS SUMMARY | 2018-01-01 12:03 | XMS REPORT ---
Author Author SENAIT DUNLAP [facility] Address [address] [place] [address] Care Team Providers Care Striper Spray Gun Name Role Phone SENAIT DUNLAP Unavailable PROBLEMS Type Condition ICD9-CM Code ORD55-FY Code Onset Dates Condition Status SNOMED Code Problem History of common bile duct surgery Z98.89 Active 604737927 Problem Barretts esophagus K22.70 Active 620374543 Problem 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 Active 06754894 Problem Colon polyp K63.5 Active 63321347 Problem Bilateral low back pain without sciatica M54.5 Active 560824560 Problem Screening breast examination Z12.39 Active 897444574 Problem Postmenopausal Z78.0 Active 80234502 Problem Osteopenia M85.80 Active 642928811 Problem Cigarette nicotine dependence without complication F17.210 Active 41126056 Problem Type 2 diabetes mellitus with diabetic peripheral angiopathy without gangrene E11.51 Active 343811648 Problem Vascular dementia without behavioral disturbance F01.50 Active 64872926881104995 Problem Unspecified atherosclerosis of blackfeet arteries of extremities, unspecified extremity I70.209 Active 511211879923174 Problem Arthritis M19.90 Active 4199119 Problem Chronic atrial fibrillation I48.2 Active 247168636 Problem Chronic obstructive pulmonary disease with acute lower respiratory infection J44.0 Active 739645730 Problem Other chronic pancreatitis K86.1 Active 075860184 Problem Stress incontinence of urine N39.3 Active 00253083 Problem Controlled type 2 diabetes mellitus without complication, without long -term current use of insulin E11.9 Active 663960264 Problem Unspecified psychosis F29 Active 32558921 Problem Xeroderma Q80.9 Active 55895503 Problem COPD (chronic obstructive pulmonary disease) J44.9 Active 19653017 Problem Dementia without behavioral disturbance, unspecified dementia type F03.90 Active 25745201 Problem Gastroparesis K31.84 Active 628665284 Problem Type 2 diabetes mellitus with diabetic neuropathy, without long-term current use of insulin E11.40 Active 22232568 Problem Osteoporosis M81.0 Active 96224246 Problem Atherosclerosis of blackfeet artery of both lower extremities with intermittent claudication I70.213 Active 087410679523357 Problem Hyperlipidemia E78.5 Active 84102810 Problem Diabetic polyneuropathy associated with type 2 diabetes mellitus E11.42 Active 00964781 Problem Essential tremor G25.0 Active 19441585 Problem 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 Active 6228476230634 Problem Generalized anxiety disorder F41.1 Active 141947509 Problem Gastroesophageal reflux disease, esophagitis presence not specified K21.9 Active 100895932 Problem Coronary artery disease involving blackfeet coronary artery of blackfeet 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 I25.118 Active 6485444835559 Problem Postconcussion syndrome F07.81 Active 06431210 Problem Chronic pain syndrome G89.4 Active 068049929 Problem Migraine without aura and without status migrainosus, not intractable G43.009 Active 302488147 Problem Paroxysmal atrial fibrillation I48.0 Active 303642251 Problem Migraine without aura and with status migrainosus, not intractable G43.001 Active 518076840 Problem Cervicalgia M54.2 Active 1680203594375 Problem Acute exacerbation of chronic obstructive pulmonary disease (COPD) J44.1 Active 878197855 Problem Major depressive disorder, recurrent episode, moderate F33.1 Active 474610614 Problem Crohn''s disease without complication, unspecified gastrointestinal tract location K50.90 Active 36176289 Problem Chronic fatigue R53.82 Active 86866964 Problem Bipolar affective disorder, currently depressed, moderate F31.32 Active 268865153 ALLERGIES Substance Reaction Event Type Date Status Penicillin V Potassium rash Drug Allergy Jul, Active Neosporin rash Drug Allergy Jul, Active Ibuprofen rash Drug Allergy Jul, Active Glipizide hives, nausea Drug Allergy Jul, Active ENCOUNTERS Encounter Location Date Diagnosis [facility] [address] [facility] [id number] [address] Nov, [facility] [id number] [address] Nov, [facility] [id number] [address] 3637 Oct, [facility] [id number] [place] [address] 25539- 3275 Oct, Bipolar affective disorder, currently depressed, moderate F31.32 ; Vascular dementia without behavioral disturbance F01.50 and Generalized anxiety disorder F41.1 [facility] [id number] [place] [address] 92467- 8549 Oct, [facility] [id number] [place] [address] 12621- 1991 Oct, [facility] [id number] [place] [address] 27644- 4096 Oct, Edema of both legs R60.0 [facility] [id number] [place] [address] 54057- 7974 Oct, [facility] [id number] [place] [address] 14195- 7259 Sep, [facility] [id number] [place] [address] 02410- 9262 Sep, [facility] [id number] [place] [address] 83333- 9370 Sep, [facility] [id number] [place] [address] 39650- 8878 Sep, Encounter for well woman exam with routine gynecological exam Z01.419 ; Screening for STDs (sexually transmitted diseases) Z11.3 ; Screening breast examination Z12.31 and Overweight (BMI 25.0-29.9) E66.3 [facility] [address] [place] [address] 50514- 9075 Sep, [facility] [id number] [place] [address] 89641- 5217 Sep, [facility] [id number] [place] [address] 19217- 0560 Sep, [facility] [id number] [place] [address] 83214- 9739 August, [facility] [address] [address] 3898 August, [facility] [id number] [place] [address] 67952- 0610 August, Type 2 diabetes mellitus with diabetic neuropathy, without long-term current use of insulin E11.40 and Sprain of right ankle, unspecified ligament, initial encounter S93.401A [facility] [id number] [place] [address] 20882- 9443 August, [facility] [id number] [place] [address] 58531- 2371 August, [facility] [id number] [place] [address] 98215- 5428 August, [facility] [id number] [place] [address] 62059- 4862 August, Gastroesophageal reflux disease, esophagitis presence not specified K21.9 [facility] [address] [id number] [address] 4598 August, [facility] [id number] [place] [address] 09712- 2718 August, [facility] [id number] [place] [address] 42924- 1561 August, [facility] [address] [place] [address] 73958- 4027 August, Type 2 diabetes mellitus with diabetic neuropathy, without long-term current use of insulin E11.40 and Elevated liver enzymes R74.8 [facility] [address] [id number] [address] 8677 Jul, [facility] [address] [address] 2415 Jul, Cough R05 [facility] [id number] [place] [address] 82535- 8418 Jul, [facility] [address] 36473- 9372 Jul, [facility] [address] 41409- 4162 Jul, Bipolar affective disorder, currently depressed, moderate F31.32 ; Vascular dementia without behavioral disturbance F01.50 and Generalized anxiety disorder F41.1 [place] [address] 30008- 0747 Jul, [facility] [address] 33753- 2251 Jul, Type 2 diabetes mellitus with diabetic neuropathy, without long-term current use of insulin E11.40 and Elevated liver enzymes R74.8 [place] [address] 50685- 1506 Jul, [place] [address] 98274- 4544 Jul, [facility] [address] 62917- 7862 Jul, [place] [address] 20350- 9243 Jul, Post-menopausal Z78.0 [place] [address] 60281- 7911 Jul, Stress incontinence of urine N39.3 [facility] [id number] [place] [address] 52129- 3927 Jul, [facility] [address] 08806- 0427 Jul, [facility] [id number] [place] [address] 58358- 4408 Jul, Stress incontinence of urine N39.3 and Cough R05 [place] [address] 92120- 3702 Jul, [facility] [address] [address]- 5542 Jul, [facility] [id number] [place] [address] 56076- 1376 Jul, [facility] [address] [place] [address] 54259- 4051 Jul, Gastroesophageal reflux disease, esophagitis presence not specified K21.9 [facility] [id number] [place] [address] 28700- 1690 Jun, Diabetic polyneuropathy associated with type 2 diabetes mellitus E11.42 [facility] [id number] [place] [address] 81322- 0915 28 Jun, 2017 Diabetic polyneuropathy associated with type 2 diabetes mellitus E11.42 ; Coronary artery disease involving blackfeet coronary artery of blackfeet 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 I25.118 and Paroxysmal atrial fibrillation I48.0 [facility] [address] [address]- 5511 Jun, [facility] [id number] [place] [address] 48737- 1199 Jun, [facility] [address] [place] [address] 95485- 6686 Jun, Gastroenteritis K52.9 [facility] [id number] [place] [address] 97800- 0104 Jun, Gastroenteritis K52.9 [facility] [address] [address] 2542 Jun, [facility] [address] [address]- 8794 Jun, [facility] [address] [address]- 6839 Jun, Sprain of right ankle, unspecified ligament, initial encounter S93.401A ; Type 2 diabetes mellitus with diabetic neuropathy, without long-term current use of insulin E11.40 ; Atherosclerosis of blackfeet artery of both lower extremities with intermittent claudication I70.213 ; 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 ; Chronic atrial fibrillation I48.2 and Crohn''s disease without complication, unspecified gastrointestinal tract location K50.90 [facility] [id number] [place] [address] 05903 -1954 17 Jun, 2017 Cough R05 and Chronic obstructive pulmonary disease with acute lower respiratory infection J44.0 [place] [id number] [place] [address] 24221- 2301 Jun, [place] [id number] [place] [address] 30125- 2442 Jun, Coughing R05 ; Unspecified atherosclerosis of blackfeet arteries of extremities, unspecified extremity I70.209 ; Type 2 diabetes mellitus with diabetic peripheral angiopathy without gangrene E11.51 ; Crohn''s disease without complication, unspecified gastrointestinal tract location K50.90 ; Other chronic pancreatitis K86.1 and Chronic atrial fibrillation I48.2 [facility] [id number] [place] [address] 79961 -0694 Jun, [place] [id number] [place] [address] 20596- 7215 Jun, Bipolar affective disorder, currently depressed, moderate F31.32 ; Vascular dementia without behavioral disturbance F01.50 and Generalized anxiety disorder F41.1 [place] [id number] [place] [address] 17260- 8136 May, Generalized anxiety disorder F41.1 [place] [address] [place] [address] 85558- 9617 May, [place] [id number] [place] [address] 09791- 1915 May, [place] [id number] [place] [address] 62428- 4903 May, Coughing R05 [place] [id number] [place] [address] 76966- 9135 May, [place] [id number] [place] [address] 45235- 1083 May, Bipolar affective disorder, currently depressed, moderate F31.32 ; Vascular dementia without behavioral disturbance F01.50 and Generalized anxiety disorder F41.1 [place] [address] 50211- 8779 Apr, Generalized anxiety disorder F41.1 [place] [id number] [place] [address] 99292- 9416 Apr, [place] [id number] [place] [address] 14985- 3085 Apr, Vascular dementia without behavioral disturbance F01.50 ; Generalized anxiety disorder F41.1 and Bipolar affective disorder, currently depressed, moderate F31.32 [place] [id number] [place] [address] 84618- 3822 Apr, Generalized anxiety disorder F41.1 [facility] [id number] [place] [address] 26460 -2278 Apr, Cough R05 and Acute exacerbation of chronic obstructive pulmonary disease (COPD) J44.1 [place] [id number] [place] [address] 27907- 8930 Apr, [facility] [id number] [place] [address] 24739 -3109 Mar, Cough R05 and Cigarette nicotine dependence without complication F17.210 [place] [id number] [place] [address] 20190- 8767 Mar, [place] [id number] [place] [address] 96710- 6860 Feb, Generalized anxiety disorder F41.1 ; Major depressive disorder, recurrent episode, moderate F33.1 ; Vascular dementia without behavioral disturbance F01.50 and Unspecified psychosis F29 [place] [id number] [place] [address] 21574- 8443 Feb, [place] [id number] [place] [address] 95790- 8252 Feb, [place] [id number] [place] [address] 01544- 4240 Feb, Generalized anxiety disorder F41.1 [place] [address] 63967- 3070 Feb, Generalized anxiety disorder F41.1 [place] [address] 80545- 6543 Feb, Dizziness R42 ; Chronic fatigue R53.82 ; Postconcussion syndrome F07.81 ; Fall, initial encounter W19.XXXA and Disorientation R41.0 [place] [id number] [place] [address] 17894- 0523 Feb, Postconcussion syndrome F07.81 ; Injury of head, initial encounter S09.90XA ; Fall, initial encounter W19.XXXA ; Disorientation R41.0 and Acute cystitis with hematuria N30.01 [place] [id number] [place] [address] 35517- 9572 Jan, Gastroesophageal reflux disease, esophagitis presence not specified K21.9 ; Post-menopausal Z78.0 and Migraine without aura and without status migrainosus, not intractable G43.009 [place] [id number] [place] [address] 82570- 9372 Jan, [place] [id number] [place] [address] 27836- 7537 Jan, Generalized anxiety disorder F41.1 ; Major depressive disorder, recurrent episode, moderate F33.1 ; Vascular dementia without behavioral disturbance F01.50 and Unspecified psychosis F29 [place] [address] [place] [address] 71806- 0625 Jan, Pneumonia of left lower lobe due to infectious organism J18.1 [facility] [id number] [place] [address] 89461- 0965 05 Jan, 2017 Migraine without aura and with status migrainosus, not intractable G43.001 [facility] [id number] [place] [address] 74476 -1338 Jan, Migraine without aura and without status migrainosus, not intractable G43.009 [facility] [id number] [place] [address] 42061- 9506 Dec, Hematoma T14.8 [facility] [id number] [place] [address] 58993- 6232 Dec, [facility] [id number] [place] [address] 19419 -4385 Nov, Fatigue, unspecified type R53.83 [place] [address] 38136- 4473 Nov, Scabies B86 and Coronary artery disease involving blackfeet coronary artery of blackfeet 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 I25.118 [place] [id number] [place] [address] 06635- 1476 Nov, [place] [id number] [place] [address] 69202- 3587 Nov, [place] [id number] [place] [address] 43154- 9941 Oct, [place] [id number] [place] [address] 45868- 8831 Oct, Generalized anxiety disorder F41.1 and Major depressive disorder, recurrent episode, moderate F33.1 [place] [id number] [place] [address] 90349- 7698 Oct, Cramp of both lower extremities R25.2 [place] [id number] [place] [address] 62355- 5508 Oct, Leg cramps R25.2 [facility] [id number] [place] [address] 44300- 3394 Oct, Chronic pain syndrome G89.4 [facility] [id number] [place] [address] 37402- 8532 17 Oct, 2016 [facility] [id number] [place] [address] 71984- 9338 Oct, [facility] [id number] [place] [address] 96259- 1999 Oct, Routine gynecological examination Z01.419 and Screening for breast cancer Z12.31 [place] [id number] [place] [address] 28293- 0177 28 Sep, 2016 Diarrhea R19.7 [facility] [id number] [place] [address] 12376- 6025 Sep, Back pain M54.9 [facility] [id number] [place] [address] 46414- 3507 Sep, [facility] [id number] [place] [address] 01058- 0564 Sep, [facility] [id number] [place] [address] 57085 -5216 August, Xeroderma Q80.9 [facility] [id number] [place] [address] 33456- 2490 August, Dementia without behavioral disturbance, unspecified dementia type F03.90 [facility] [id number] [place] [address] 10193- 6461 August, Chronic pain syndrome G89.4 [facility] [id number] [place] [address] 90574- 8395 August, [facility] [id number] [place] [address] 30079- 8779 August, Hyperlipidemia E78.5 ; Other fatigue R53.83 and Other specified hypotension I95.89 [facility] [id number] [place] [address] 48786 -2559 August, Dysuria R30.0 ; Other fatigue R53.83 and Other specified hypotension I95.89 [facility] [address] 19340- 8465 August, [place] [address] 41374- 8644 Jul, Pain in left knee M25.562 and Gastroenteritis K52.9 [place] [address] 19821- 5760 Jul, [place] [address] 86503- 3933 Jul, Diarrhea R19.7 [facility] [address] 38301 -7774 Jul, Spider bite, accidental or unintentional, initial encounter T63.301A [place] [address] 61812- 0617 Jul, Primary osteoarthritis of right knee M17.11 and Arthritis M19.90 [place] [address] 07163- 4696 Jul, Generalized anxiety disorder F41.1 and Major depressive disorder, recurrent episode, moderate F33.1 [place] [address] 29088- 7382 Jul, Type 2 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 and Temporal headache R51 [place] [address] 45444- 0992 Jul, Back pain M54.9 [place] [address] 74040- 0265 Jul, [place] [address] 49311- 0449 Jul, [facility] [id number] [place] [address] 68977- 2040 Jun, Nausea R11.0 [facility] [address] 90116 -5806 Jun, Acute suppurative otitis media of both ears without spontaneous rupture of tympanic membranes, recurrence not specified H66.003 and COPD exacerbation J44.1 [place] [address] 97236- 5318 Jun, Generalized anxiety disorder F41.1 [place] [address] 94609- 9355 Jun, [facility] [place] [address] 65607 -8603 Jun, [facility] [place] [address] 38765 -2132 Jun, Shortness of breath R06.02 and COPD exacerbation J44.1 [place] [address] 55410- 9714 10 Jun, 2016 Eczema, unspecified type L30.9 [place] [id number] [place] [address] 19018- 0205 Jun, [place] [id number] [place] [address] 48568- 6476 May, [place] [id number] [place] [address]- [address]121 May, Muscle cramping R25.2 [place] [address] [address] May, [place] [address] [id number] Apr, Diarrhea R19.7 [place] [address] [address]- [address] Apr, [place] [address] [place] [id number] [place] [address] 68[address]- [address]999 Apr, Chronic pain syndrome G89.4 [place] [address] [address]- [address] Apr, Cramp of both lower extremities R25.2 and Vascular dementia without behavioral disturbance F01.50 [place] [address] [address]- [address] Apr, Type 2 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 and Cigarette nicotine dependence without complication F17.210 [place] [address] 30533- 2828 Mar, Generalized anxiety disorder F41.1 [place] [address] 88536- 4767 Feb, Generalized anxiety disorder F41.1 and Major depressive disorder, recurrent episode, moderate F33.1 [place] [address] 20197- 8389 Feb, [facility] [address] 41273 -6736 Feb, Dysuria R30.0 and Acute cystitis with hematuria N30.01 [place] [address] 50449- 7311 Jan, [place] [address] 09543- 3027 Jan, [place] [address] 62756- 4351 Jan, [place] [address] 97686- 2993 Jan, [facility] [address] 36235 -7751 10 Jan, 2016 Wasp sting, accidental or unintentional, initial encounter T63.461A [place] [address] [place] [id number] [place] [address] 43649- 4431 06 Jan, 2016 Encounter for immunization Z23 [facility] [address] [place] [id number] [place] [address] 37975- 9673 Jan, [facility] [address] [place] [id number] [place] [address] 57596- 6410 Jan, [facility] [address] 61256- 7374 28 Dec, 2015 Generalized anxiety disorder F41.1 and Major depressive disorder, recurrent episode, moderate F33.1 [place] [address] [place] [id number] [place] [address] 68692- 0010 21 Dec, 2015 Routine gynecological examination Z01.419 ; Postmenopausal Z78.0 ; Screening breast examination Z12.39 ; Osteopenia M85.80 and Breast cancer screening Z12.39 [place] [address] [place] [id number] [place] [address] 89010- 8127 20 Dec, 2015 [facility] [address] [place] [id number] [place] [address] 84225- 7537 19 Dec, 2015 [facility] [address] [place] [id number] [place] [address] 83140- 8286 16 Dec, 2015 [facility] [address] [place] [id number] [place] [address] 90086- 9182 16 Dec, 2015 [facility] [address] [place] [id number] [place] [address] 93420- 6309 14 Dec, 2015 [facility] [id number] [place] [address] 70522- 8688 06 Dec, 2015 [facility] [address] [place] [id number] [place] [address] 38305- 6228 30 Nov, 2015 [facility] [id number] [place] [address] 02539 -2311 Nov, Cough R05 ; Other viral agents as the cause of diseases classified elsewhere B97.89 and Acute upper respiratory infection, unspecified J06.9 [facility] [address] [facility] [id number] [address]- 7675 Nov, [facility] [address] [facility] [id number] [address]- 9975 Nov, [facility] [address] [facility] [id number], [place] [address]- 1859 Nov, [facility] [address] [facility] [id number] [address]- 1601 Nov, [facility] [address] [facility] [id number] [place] [address]- 2731 Nov, [facility] [address] [facility] [id number], [place] [address]- 5367 Oct, [facility] [address] [place] [id number] [address]- 4532 Oct, [facility] [address] [place] [id number] [address]- 2213 Oct, [facility] [address] [place] [id number] [address]- 4895 Oct, Chronic pain syndrome G89.4 [facility] [address] [place] [id number] [address]- 9640 Sep, Generalized anxiety disorder F41.1 and Major depressive disorder, recurrent episode, moderate F33.1 [facility] [address] [address]- 3282 Sep, [facility] [address] [facility] [id number], [place] [address]- 7067 Sep, [facility] [address] [address]- 8006 14 Sep, 2015 Generalized anxiety disorder F41.1 [facility] [address] [place] [id number] [address]- 4297 13 Sep, 2015 Cramp of both lower extremities R25.2 and Cervicalgia M54.2 [facility] [address] [place] [id number] [place] [address] 02030- 9779 Sep, Generalized anxiety disorder F41.1 [place] [address] [place] [id number] [place] [address] 16802- 3948 Sep, [facility] [address] [place] [id number] [place] [address] 33160 -4697 August, Rash R21 ; Itching L29.9 and Allergic response, subsequent encounter T78.40XD [facility] [address] [place] [id number] [place] [address] 99824- 1449 August, Primary insomnia F51.01 [facility] [address] [place] [id number] [place] [address] 80625 -9604 August, Rash R21 ; Itching L29.9 and Allergic response, initial encounter T78.40XA [place] [address] [place] [id number] [place] [address] 44113- 9268 August, [place] [address] [place] [id number] [place] [address] 94535- 3294 August, Cramp of both lower extremities R25.2 [place] [address] [place] [id number] [place] [address] 12459- 6026 August, Back pain M54.9 [place] [address] [place] [id number] [place] [address] 72626- 8436 August, [facility] [address] [place] [id number] [place] [address] 27622- 3090 August, [facility] [address] [place] [id number] [place] [address] 03361 -7538 August, Cramp of both lower extremities R25.2 [facility] [address] [place] [id number] [place] [address] 27173- 5644 August, [facility] [address] [place] [id number] [place] [address] 27657- 2001 August, Syncope R55 ; Paroxysmal atrial fibrillation I48.0 ; Dementia without behavioral disturbance, unspecified dementia type F03.90 and Chronic pain syndrome G89.4 [facility] [address] [place] [id number] [place] [address] 72894- 3626 August, Type 2 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 and Syncope R55 [facility] [address] [place] [id number] [place] [address] 42575- 0146 Jul, [facility] [address] [place] [id number] [place] [address] 33756- 9535 Jul, [facility] [address] [place] [id number] [place] [address] 79498- 0973 Jul, [facility] [address] [place] [id number] [place] [address] 63813- 1649 Jul, [facility] [address] [place] [id number] [place] [address] 45825- 1261 Jul, [facility] [address] [place] [id number] [place] [address] 15538- 7491 Jul, UTI (urinary tract infection) N39.0 [facility] [address] [place] [id number] [place] [address] 10231- 5164 Jul, [facility] [id number] [place] [address] 42830- 2284 Jul, Major depressive disorder, recurrent episode, moderate F33.1 and Generalized anxiety disorder F41.1 [facility] [address]005[address] [address]- 5382 Jul, Generalized anxiety disorder F41.1 [facility] [address] [place] [id number] [place] [address] 39559- 1548 Jul, Diarrhea R19.7 [facility] [id number] [place] [address] 47237- 6110 Jul, [facility] [address] [place] [id number] [place] [address] 85775- 3428 Jun, [facility] [address], [place] [address]- 6056 Jun, Eczema L30.9 [facility] [address]005[address] [address]- 6754 Jun, [facility] [address] [address]- 9013 Jun, COPD (chronic obstructive pulmonary disease) J44.9 [facility] [id number] [place] [address] 78652- 9266 Jun, [facility] [address] [place] [id number] [place] [address] 42698- 2082 Jun, Major depressive disorder, recurrent episode, moderate F33.1 and Generalized anxiety disorder F41.1 [facility] [id number] [place] [address] 10130- 2190 May, [facility] [address] [address]- 2267 May, UTI (urinary tract infection) N39.0 [facility] [address] [address]- 2625 May, [facility] [id number] [address]- 3422 May, [facility] [id number], [place] [address]- 0672 May, [facility] [address] [address]- 5009 May, [facility] [address] [address]- 5940 Apr, Major depressive disorder, recurrent episode, moderate F33.1 and Generalized anxiety disorder F41.1 [facility] [id number] [address]- 4650 25 Michael, 2016 COPD (chronic obstructive pulmonary disease) J44.9 [facility] [address] [address]- 5006 Apr, [facility] [address] [place] [id number] [place] [address] 53092- 7460 Apr, Atrial flutter I48.92 [facility] [address] [place] [id number] [place] [address] 20586- 9831 Apr, [facility] [address] [place] [id number] [place] [address] 21756- 2699 Apr, [facility] [address] [place] [id number] [place] [address] 63590- 2792 Mar, [facility] [address] [place] [id number] [place] [address] 63249- 2955 Mar, [facility] [address] [place] [id number] [place] [address] 71983- 6668 Mar, [facility] [address] [place] [id number] [place] [address] 93031- 7837 Mar, Hyperlipidemia E78.5 ; Type 2 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 ; Major depressive disorder, recurrent episode, moderate F33.1 and Chronic pain syndrome G89.4 [facility] [address], [place] [address]- 4453 16 Mar, 2015 [facility] [id number] [address]- 3707 14 Mar, 2015 [facility] [id number] [address]- 5919 Mar, [facility] [address] [place] [id number] [place] [address] 89466- 8828 08 Mar, 2015 [facility] [address] [address]- 7280 30 Feb, 2015 COPD (chronic obstructive pulmonary disease) J44.9 and Back pain M54.9 [facility] [address] [place] [address]- 2248 Feb, [facility] [address], [place] [address]- 8568 Feb, [facility] [address], [place] [address]- 2691 Feb, [facility] [address] [place] [id number] [place] [address] 03268- 2149 Feb, [facility] [address] [place] [id number] [place] [address] 87813- 0456 Feb, [facility] [address] [place] [id number] [place] [address] 93897- 9061 Feb, [facility] [address] [place] [id number] [place] [address] 93677- 5299 Feb, [facility] [address] [place] [id number] [place] [address] 47115- 5321 Feb, [facility] [id number] [place] [address] 94769- 3235 Feb, Diabetes E11.9 ; Back pain M54.9 and COPD (chronic obstructive pulmonary disease) J44.9 [facility] [address] [address]- 6931 Jan, [facility] [id number] [place] [address] 20788- 6315 Jan, Major depression, recurrent F33.9 and Generalized anxiety disorder F41.1 [facility] [address] [address]- 5502 Jan, Chronic pain G89.29 [facility] [address] [place] [id number] [place] [address] 95545- 5703 Jan, [facility] [address] [address]- 0733 Jan, [facility] [address] [place] [id number] [place] [address] 25558- 3513 05 Jan, 2015 [facility] [id number] [place] [address] 35200- 0079 Jan, [facility] [address] [place] [id number] [place] [address] 55132- 7359 Jan, Nicotine dependence F17.200 [facility] [address] [place] [id number] [place] [address] 06982- 7272 Jan, Nicotine dependence F17.200 and Back pain M54.9 [facility] [address] [place] [id number] [place] [address] 46795- 5810 Jan, [facility] [address] [place] [id number] [place] [address] 04694- 4011 28 Dec, 2014 [facility] [address] [place] [id number] [place] [address] 96301- 3061 25 Dec, 2014 Anxiety, generalized 300.02 and Major depression, recurrent 296.30 [facility] [address] [place] [id number] [place] [address] 07949- 8316 24 Dec, 2014 [facility] [address] [place] [id number] [place] [address] 45507- 3570 21 Dec, 2014 [facility] [address] [place] [id number] [place] [address] 37425- 5946 17 Dec, 2014 [facility] [id number] [place] [address] 87590- 9780 15 Dec, 2014 [facility] [id number] [place] [address] 86648- 0162 14 Dec, 2014 [facility] [address] [place] [id number] [place] [address] 94330- 0048 11 Dec, 2014 [facility] [address] [place] [id number] [place] [address] 56462- 4100 10 Dec, 2014 [facility] [id number] [place] [address] 11165- 1905 08 Sep, 2014 Skin tear 879.8 [facility] [address], [place] [address]- 9442 08 Dec, 2014 Routine gynecological examination V72.31 ; Breast cancer screening V76.10 and Family history of breast cancer in first degree relative V16.3 [facility] [id number] [place] [address] 44746- 8338 03 Dec, 2014 [facility] [address] [place] [address] [id number] [place] [address] 78995- 3073 Dec, [facility] [address] [place] [id number] [place] [address] 31126- 0160 Nov, [facility] [id number] [place] [address] 36149- 8609 Nov, [facility] [id number] [place] [address] 76783- 5477 Nov, Poor balance 781.99 and Vascular dementia, uncomplicated 290.40 [facility] [address] [place] [id number] [place] [address] 36448- 2615 Nov, [facility] [address] [place] [address] [id number] [place] [address] 35361- 0443 Nov, Major depression, recurrent 296.30 and Anxiety, generalized 300.02 [facility] [id number] [place] [address] 17745- 1069 Nov, [facility] [address] [id number] [place] [address] 35499- 9745 Nov, [facility] [id number] [place] [address] 03926- 8558 Nov, [facility] [id number] [place] [address] 43893- 6761 Nov, [facility] [id number] [place] [address] 32663- 4061 Nov, Vascular dementia, uncomplicated 290.40 and Lumbago 724.2 [facility] [address] [place] [address]- 4292 Nov, [facility] [address], [place] [address]- 5356 Nov, [facility] [address], [place] [address]- 8261 Nov, [facility] [id number] [place] [address] 59912- 9518 Oct, [facility] [id number] [place] [address] 09651- 8864 Oct, [facility] [id number] [place] [address] 75782- 2965 Oct, [facility] [id number] [place] [address] 08078- 7584 Oct, COPD (chronic obstructive pulmonary disease) 496 and Hyperlipidemia 272.4 [facility] [id number] [place] [address] 61644- 6537 Oct, Major depression, recurrent 296.30 and Anxiety, generalized 300.02 [facility] [id number] [address]- 6023 Oct, [facility] [address], [place] [address]- 9741 Oct, [facility] [address] [address]- 7884 Oct, [facility] [address] [address]- 7207 Sep, Lumbago 724.2 and Anxiety state, unspecified 300.00 [facility] [address], [place] [address]- 0842 Sep, [facility] [address], [place] [address]- 3566 Sep, [facility] [address], [place] [address]- 6861 August, [facility] [address] [facility] [id number] 0964 August, Major depression, recurrent 296.30 ; Anxiety, generalized 300.02 and No condition on [place] II V71.09 [facility] [address] [facility] [id number] [address] August, [facility] [address] [facility] [id number], [place] [address] August, [facility] [address] [facility] [id number] [place] [address] Jul, [facility] [id number] [address] Jul, [facility] [id number] [place] [address] Jul, [facility] [address] [id number], [place] [address] Jun, [facility] [address] [id number] [place] [address] Jun, [facility] [address] [id number], [place] [address] Jun, [facility] [address] [id number], [place] [address] Jun, [facility] [address] [id number], [place] [address] Jun, [facility] [place] [facility] [address] [facility] [id number] [place] [address] Jun, [facility] [place] [facility] [address] [facility] [id number] [address] Jun, [facility] [place] [facility] [address] [id number], [place] [address] 17 Jun, 2014 [facility] [address] [id number] [address] 13 Jun, 2014 [facility] [place] [facility] [address] [id number] [place] [address] 13 Jun, 2014 [facility] [place] [facility] [address] [id number] [place] [address] 10 Jun, 2014 [facility] [place] [facility] [address] [facility] [id number] [place] [address] 10 Jun, 2014 [facility] [place] [facility] [address] [id number] [place] [address] 07 Jun, 2014 [facility] [place] [facility] [address] [id number] [place] [address] 07 Jun, 2014 [facility] [place] [facility] [address] [facility] [id number] [place] [address] Jun, 2014 [facility] [place] [facility] [address] [id number] [place] [address] Jun, 2014 [facility] [place] [facility] [address] [facility] [id number] [place] [address] May, 2014 [facility] [place] [facility] [address] [facility] [id number] [place] [address]- [address] May, 2014 [facility] [place] [facility] [address] [id number] [place] [address] May, 2014 [facility] [place] [facility] [id number] [place] [address] May, 2014 [facility] [place] [facility] [address] [facility] [id number] [address] May, 2014 [facility] [place] [facility] [address] [facility] [id number] [place] [address] May, 2014 [facility] [place] [facility] [address] [facility] [id number] [place] [address] 19 May, 2014 [facility] [place] [facility] [id number] [place] [address] May, [facility] [place] [facility] [address] [id number] [place] [address] May, [facility] [place] [facility] [address] [id number] [place] [address] 6337 May, 2014 [facility] [place] [facility] [address] [id number] [place] [address] 2868 May, 2014 [facility] [place] [facility] [address] [id number] [place] [address] 3948 May, 2014 [facility] [place] [facility] [address] [id number] [place] [address]- 7068 May, [facility] [place] [facility] [address] [id number] [place] [address] 3212 May, [facility] [place] [facility] [address] [id number] [place] [address]- 0493 Apr, [facility] [place] [facility] [address] [id number] [place] [address] 7630 Apr, [facility] [place] [facility] [address] [id number] [place] [address] 1917 Apr, [facility] [place] [facility] [address] [id number] [place] [address] 3944 Apr, [facility] [place] [facility] [address] [id number] [place] [address] 2736 Apr, [facility] [place] [facility] [address] [id number] [place] [address]- 2321 Apr, [facility] [place] [facility] [address] [id number] [place] [address]- 3188 Apr, [facility] [place] [facility] [address] [facility] [id number] [place] [address]- 3679 Apr, [facility] [place] [facility] [address] [facility] [id number] [place] [address]- 3198 Apr, [facility] [place] [facility] [address] [id number] [place] [address]- 4452 Apr, [facility] [address] [id number] [place] [address] 8930 Apr, [facility] [address] [id number] [place] [address]- 4676 Apr, [facility] [address] [id number] [place] [address] 7401 Mar, [facility] [address] [id number] [place] [address] 1978 31 Mar, 2014 [facility] [address] [id number] [place] [address] 3907 30 Mar, 2014 [facility] [address] [id number] [place] [address]- 4823 30 Mar, 2014 [facility] [address] [id number] [place] [address] 4895 Mar, [facility] [address] [id number] [place] [address]- 2278 29 Mar, 2014 [facility] [address] [id number] [place] [address]- 6704 Mar, [facility] [address] [id number] [place] [address]- 0571 19 Mar, 2014 [facility] [place] [facility] [address] [id number] [place] [address]- 0433 15 Mar, 2014 [facility] [place] [facility] [address] [id number] [place] [address]- 2681 15 Mar, 2014 [facility] [place] [facility] [address] [id number] [place] [address]- 0010 15 Mar, 2014 [facility] [place] [facility] [address] [id number] [place] [address]- 4061 15 Mar, 2014 [facility] [place] [facility] [address] [id number] [place] [address]- 8892 Mar, [facility] [place] [facility] [address] [id number] [place] [address]- 0705 Mar, [facility] [place] [facility] [address] [id number] [place] [address]- 3026 Mar, [facility] [place] [facility] [address] [id number] [place] [address] Mar, [facility] [place] [facility] [address] [id number] [place] [address]- 4385 Mar, [facility] [place] [facility] [address] [id number] [place] [address]- 5215 Mar, [facility] [place] [facility] [address] [id number] [place] [address]- 6235 Mar, [facility] [place] [facility] [address] [id number] [place] [address]- 3305 Mar, [facility] [place] [facility] [address] [id number] [place] [address]- 3991 Feb, [facility] [place] [facility] [address] [id number] [place] [address]- 9326 Feb, [facility] [place] [facility] [address] [id number] [place] [address]- 7133 Feb, [facility] [place] [facility] [address] [id number] [place] [address]- 2975 Feb, [facility] [place] [facility] [address] [id number], [place] [address]- 1202 Feb, [facility] [place] [facility] [address] [id number] [place] [address]- 7394 Feb, [facility] [place] [facility] [address] [id number] [place] [address]- 8257 Feb, [facility] [place] [facility] [address] [id number], [place] [address] 0123 Feb, [facility] [place] [facility] [address] [id number], [place] [address]- 8193 Feb, [facility] [place] [facility] [address] [id number] [place] [address]- 7831 Feb, [facility] [place] [facility] [address] [id number] [place] [address]- 6821 Feb, [facility] [place] [facility] [address] [id number] [place] [address]- 8200 Feb, [facility] [place] [facility] [address] [id number] [place] [address]- 0008 Feb, [facility] [place] [facility] [address] [id number] [place] [address]- 8503 Feb, [facility] [place] [facility] [address] [id number] [place] [address]- 0309 Feb, [facility] [place] [facility] [address] [facility] [id number] [place] [address]- 6115 Feb, [facility] [place] [facility] [address] [id number] [place] [address]- 0253 Feb, [facility] [place] [facility] [address] [facility] [id number] [place] [address]- 4184 Jan, [facility] [place] [facility] [address] [facility] [id number] [place] [address]- 0935 Jan, [facility] [place] [facility] [address] [id number], [place] [address] 3890 Jan, [facility] [place] [facility] [address] [id number], [place] [address]- 5337 Jan, [facility] [place] [facility] [address] [id number] [place] [address]- 5409 Jan, [facility] [place] [facility] [address] [id number] [place] [address]- 7224 Jan, [facility] [place] [facility] [address] [facility] [id number], [place] [address] 6[address] 16 Jan, 2014 [facility] [place] [facility] [address] [id number] [place] [address]- 7385 Jan, [facility] [place] [facility] [address] [id number] [place] [address]- 5893 Jan, [facility] [place] [facility] [address] [id number] [place] [address]- 1216 Jan, [facility] [place] [facility] [address] [id number] [place] [address]- 3765 Jan, [facility] [place] [facility] [address] [id number] [place] [address]- 1823 Dec, [facility] [place] [facility] [address] [id number] [place] [address]- 0228 Dec, [facility] [place] [facility] [address] [id number] [place] [address]- 4204 Nov, [facility] [place] [facility] [address] [id number] [place] [address]- 3342 Nov, [facility] [place] [facility] [address] [id number] [place] [address]- 4799 Nov, [facility] [place] [facility] [address] [id number] [place] [address]- 3139 Nov, [facility] [place] [facility] [address] [id number] [place] [address]- 6571 Nov, [facility] [place] [facility] [address] [id number] [place] [address]- 8131 Nov, [facility] [place] [facility] [address] [id number] [place] [address]- 1629 Nov, [facility] [place] [facility] [address] [id number] [place] [address]- 6536 Oct, [facility] [place] [facility] [address] [id number] [place] [address]- 2546 Oct, [facility] [place] [facility] [address] [id number] [place] [address]- 2667 07 Oct, 2013 [facility] [place] [facility] [address] [id number] [place] [address]- 0499 07 Oct, 2013 [facility] [place] [facility] [address] [id number] [place] [address]- 9468 30 Sep, 2013 [facility] [place] [facility] [address] [id number] [place] [address]- 5271 30 Sep, 2013 [facility] [place] [facility] [address] [id number] [place] [address]- 1591 Sep, [facility] [place] [facility] [address] [id number] [place] [address]- 9463 Sep, [facility] [place] [facility] [address] [id number] [place] [address]- 2950 Sep, [facility] [place] [facility] [address] [id number] [place] [address]- 5986 Sep, [facility] [place] [facility] [address] [id number] [place] [address]- 2177 Sep, [facility] [place] [facility] [address] [id number] [place] [address]- 4026 Sep, [facility] [place] [facility] [address] [id number] [place] [address]- 7415 Sep, [facility] [place] [facility] [address] [id number] [place] [address]- 1275 Sep, [facility] [place] [facility] [address] [id number], [place] [address]- 9643 05 Sep, 2013 [facility] [place] [facility] [address] [id number] [place] [address]- 6429 Sep, [facility] [place] [facility] [address] [id number] [place] [address]- 6987 05 Sep, 2013 [facility] [place] [facility] [address] [id number] [place] [address]- 9249 Sep, [facility] [place] [facility] [address] [id number] [place] [address]- 6479 August, [facility] [address] [id number] [place] [address]- 1908 August, [facility] [address] [id number] [place] [address]- 2177 August, [facility] [address] [id number] [place] [address]- 9057 August, [facility] [address] [id number] [place] [address]- 7063 August, [facility] [address] [id number] [place] [address]- 6399 August, [facility] [address] [id number] [place] [address]- 1462 August, [facility] [address] [id number] [place] [address]- 7565 August, [facility] [address] [id number] [place] [address]- 7666 August, [facility] [address] [id number] [place] [address]- 1599 August, [facility] [address] [id number] [place] [address]- 0639 August, [facility] [address] [id number] [place] [address]- 5804 August, [facility] [place] [facility] [address] [id number] [place] [address]- 3142 August, [facility] [place] [facility] [address] [id number] [place] 4147 August, [facility] [place] [facility] [address] [id number] [place] [address] August, [facility] [place] [facility] [address] [id number] [place] [address]- 2178 August, [facility] [place] [facility] [address] [id number] [place] [address]- 3088 August, [facility] [place] [facility] [address] [id number] [place] [address]- 0710 August, [facility] [place] [facility] [address] [id number] [place] [address]- 9561 August, [facility] [place] [facility] [address] [id number] [place] [address]- 1685 Jul, [facility] [place] [facility] [address] [id number] [place] [address]- 1471 Jul, [facility] [place] [facility] [address] [id number] [place] [address]- 4973 Jul, [facility] [place] [facility] [address] [id number] [place] [address]- 0062 Jul, [facility] [place] [facility] [address] [id number] [place] [address]- 0276 Jun, [facility] [place] [facility] [address] [id number] [place] [address]- 3213 Jun, [facility] [place] [facility] [address] [id number] [place] [address]- 8060 Jun, [facility] [place] [facility] [address] [id number] [place] [address]- 2315 Jun, [facility] [place] [facility] [address] [id number] [place] [address]- 6761 Jun, [facility] [place] [facility] [address] [id number] [place] [address]- 6830 17 Jun, 2013 [facility] [place] [facility] [address] [id number] [place] [address]- 7474 Jun, [facility] [place] [facility] [address] [id number] [place] [address]- 9197 14 Jun, 2013 [facility] [place] [facility] [address] [id number] [place] [address]- 8786 Jun, [facility] [place] [facility] [address] [facility] [id number] [place] [address]- 9427 Jun, [facility] [place] [facility] [address] [facility] [id number] [place] [address]- 7616 May, [facility] [place] [facility] [address] [facility] [id number] [place] [address]- 8606 May, [facility] [place] [facility] [address] [facility] [id number] [place] [address]- 4434 May, [facility] [place] [facility] [address] [facility] [id number] [place] [address]- 7859 May, [facility] [place] [facility] [address] [facility] [id number] [place] [address]- 0506 May, [facility] [place] [facility] [address] [facility] [id number] [place] [address]- 8950 May, [facility] [place] [facility] [address] [facility] [id number] [place] [address]- 5276 20 May, 2013 [facility] [place] [facility] [address] [facility] [id number] [place] [address]- 2290 May, [facility] [place] [facility] [address] [facility] [id number] [place] [address]- 9702 May, [facility] [place] [facility] [address] [facility] [id number] [place] [address]- 9955 18 May, 2013 [facility] [place] [facility] [address] [facility] [id number] [place] [address]- 4545 18 May, 2013 [facility] [place] [facility] [address] [facility] [id number] [place] [address]- 7459 17 May, 2013 [facility] [place] [facility] [address] [facility] [id number] [place] [address]- 9726 May, [facility] [place] [facility] [address] [facility] [id number] [place] [address]- 2682 May, [facility] [place] [facility] [address] [id number] [place] [address]- 0080 10 May, 2013 [facility] [place] [facility] [address] [id number] [place] [address]- 4879 07 May, 2013 [facility] [place] [facility] [address] [id number] [place] [address]- 1176 May, [facility] [place] [facility] [address] [id number] [place] [address]- 7665 Apr, [facility] [place] [facility] [address] [id number] [place] [address]- 4952 Apr, [facility] [place] [facility] [address] [id number] [place] [address]- 8714 Apr, [facility] [place] [facility] [address] [id number] [place] [address]- 0382 Apr, [facility] [place] [facility] [address] [id number] [place] [address]- 0288 Apr, [facility] [place] [facility] [address] [id number] [place] [address]- 2304 Apr, [facility] [place] [facility] [address] [id number] [place] [address]- 8574 Apr, [facility] [place] [facility] [address] [id number] [place] [address]- 6826 Mar, [facility] [place] [facility] [address] [id number], [place] [address]- 6384 Mar, [facility] [place] [facility] [address] [id number] [place] [address]- 3554 Mar, [facility] [place] [facility] [address] [id number] [place] [address]- 3952 Mar, [facility] [place] [facility] [address] [id number] [place] [address]- 8230 Mar, [facility] [place] [facility] [address] [id number] [place]598 09 Mar, 2013 [facility] [address] [id number] [place] [address]- 2290 Mar, [facility] [place] [facility] [address] [id number] [place] 8588 Mar, [facility] [address] [id number] [place] [address]- 9214 Mar, [facility] [place] [facility] [address] [id number] [place] [address]- 7812 Mar, [facility] [address] [id number] [place] [address]- 0524 Mar, [facility] [address] [id number] [place] [address]- 5318 Feb, [facility] [address] [id number] [place] [address]- 3246 Feb, [facility] [address] [id number] [place] [address]- 6808 Feb, [facility] [place] [facility] [address] [id number] [place] [address]- 3407 20 Feb, 2013 [facility] [address] [facility] [id number] [place] [address]- 7541 Feb, [facility] [place] [facility] [address] [id number] [place] [address]- 0185 19 Feb, 2013 [facility] [place] [facility] [address] [id number], [place] [address]- 6593 15 Feb, 2013 [facility] [place] [facility] [address] [id number] [place] [address]- 7593 14 Feb, 2013 [facility] [place] [facility] [address] [id number] [place] [address]- 0985 14 Feb, 2013 [facility] [place] [facility] [address] [id number], [place] [address]- 4424 Feb, [facility] [place] [facility] [address] [id number] [place] [address]- 1478 Feb, [facility] [place] [facility] [address] [id number] [place] [address]- 7991 Feb, [facility] [place] [facility] [address] [id number] [place] [address]- 3683 Feb, [facility] [place] [facility] [address] [id number] [place] [address]- 1404 Feb, [facility] [place] [facility] [address] [id number] [place] [address]- 9347 Feb, [facility] [place] [facility] [address] [id number] [place] [address]- 1699 Feb, [facility] [place] [facility] [address] [id number] [place] [address]- 5423 Jan, [facility] [place] [facility] [address] [id number] [place] [address]- 1982 Jan, [facility] [place] [facility] [address] [id number] [place] [address]- 9979 Jan, [facility] [place] [facility] [address] [id number] [place] [address]- 1402 Jan, [facility] [place] [facility] [address] [id number] [place] [address]- 6310 Jan, [facility] [place] [facility] [address] [id number], [place] [address]- 6904 Jan, [facility] [place] [facility] [address] [id number] [place] [address]- 9578 Jan, [facility] [place] [facility] [address] [id number] [place] [address]- [address] Jan, [facility] [place] [facility] [address] [id number] [place] [address] 10 Jan, 2013 [facility] [place] [facility] [address] [id number] [place] [address] 27 Dec, 2012 [facility] [place] [facility] [address] [id number] [place] [address] 20 Dec, 2012 [facility] [place] [facility] [address] [id number] [place] [address] 19 Dec, 2012 [facility] [place] [facility] [address] [id number] [place] [address] 2540 10 Dec, 2012 [facility] [place] [facility] [address] [id number] [place] [address] 2545 04 Dec, 2012 [facility] [place] [facility] [address] [id number] [place] [address] 03 Dec, 2012 [facility] [place] [facility] [address] [id number] [place] [address] Nov, [facility] [place] [facility] [address] [id number] [place] [address] Nov, [facility] [place] [facility] [address] [id number] [place] [address]- 69[address] Nov, [facility] [place] [facility] [address] [id number] [place] [address]- [address] Nov, [facility] [place] [facility] [address] [id number] [place] [address]- 1742 Nov, [facility] [place] [facility] [address] [id number] [place] [address]- [address]37 Nov, [facility] [place] [facility] [address] [id number] [place] [address]- [address] Nov, [facility] [place] [facility] [address] [id number] [place] [address]- 1588 Nov, [facility] [place] [facility] [address] [id number] [place] [address]- 2807 Nov, [facility] [place] [facility] [address] [id number] [place] [address] Nov, [facility] [place] [facility] [address] [id number] [place] [address]- [address] 17 Oct, 2012 [facility] [address] [id number] [place] [address] Oct, 2012 [facility] [place] [facility] [address] [id number] [place] [address] Oct, 2012 [facility] [address] [id number] [place] [address]- [address] Oct, 2012 [facility] [place] [facility] [address] [id number] [place] [address]- [address] Oct, 2012 [facility] [address] [id number] [place] [address]- [address] Oct, [facility] [place] [facility] [address] [id number] [place] [address] 80[address] Oct, [facility] [place] [facility] [address] [id number] [place] [address] Oct, [facility] [address] [id number] [place] [address] 120[address] Sep, [facility] [place] [facility] [address] [id number] [place] [address]- 18[address] Sep, [facility] [address] [id number] [place] [address] Sep, [facility] [place] [facility] [address] [id number] [place] [address]- [address] Sep, [facility] [place] [facility] [address] [id number] [place] [address]- 4406 Sep, [facility] [place] [facility] [address] [id number] [place] [address]- 0680 Sep, [facility] [place] [facility] [address] [id number] [place] [address]- 4113 Sep, [facility] [place] [facility] [address] [id number] [place] [address]- 8989 Sep, [facility] [address] [id number] [place] [address]97 August, [facility] [address] [id number] [place] [address]- 67[address] August, [facility] [address] [id number] [place] [address] August, [facility] [address] [id number] [place] [address]- 8716 August, [facility] [address] [id number] [place] [address]- 8829 August, [facility] [address] [id number] [place] [address]- 7636 Jul, [facility] [address] [id number] [place] [address]- 43[address] Jul, [facility] [address] [id number] [place] [address]- 9191 Jul, [facility] [address] [id number] [place] [address]- [address] Jul, [facility] [address] [id number], [place] [address] Jul, [facility] [address] [id number], [place] [address] 18 Jun, 2012 [facility] [place] [facility] [address] [id number], [place] [address] 33[address] 18 Jun, 2012 [facility] [place] [facility] [address] [id number] [place] [address]- 2450 15 Jun, 2012 [facility] [place] [facility] [address] [id number] [place] [address]- 2152 14 Jun, 2012 [facility] [place] [facility] [address] [id number] [address] 12 Jun, 2012 [facility] [place] [facility] [address] [id number], [place] [address] 08 Jun, 2012 [facility] [address] [id number] [place] [address]- [address] Jun, [facility] [address] [id number] [place] [address] 6975 Jun, [facility] [address] [id number] [place] [address]- 1001 Jun, [facility] [address] [id number] [place] [address] 3070 May, [facility] [address] [id number] [place] [address]- 2010 May, [facility] [address] [id number] [place] [address] 3861 May, [facility] [address] [id number] [place] [address]004 May, [facility] [address] [id number] [place] [address]- 7718 Apr, [facility] [address] [id number] [place] [address]- 3056 Apr, [facility] [address] [id number] [place] [address]- 3225 Apr, [facility] [address] [id number] [place] [address]- 0595 Apr, [facility] [address] [id number] [place] [address]- [address] Apr, [facility] [address] [id number] [place] [address]- [address]482 Apr, [facility] [address] [id number] [place] [address]- 7178 Apr, [facility] [address] [id number] [place] [address]- [address] Mar, [address] [facility] [facility] [id number] Mar, [facility] [address] [id number] [place] [address] Mar, [facility] [address] [id number] [place] [address] Mar, [facility] [address] [id number] [place] [address] Mar, [facility] [address] [id number] [place] [address] Mar, [facility] [address] [id number] [place] [address] Mar, [facility] [address] [id number] [place] [address] Mar, [facility] [address] [id number] [place] [address] Mar, [facility] [address] [id number] [place] [address] Mar, [facility] [address] [id number] [place] [address] Mar, [facility] [address] [id number] [place] [address] Mar, [facility] [address] [id number] [place] [address] Mar, [facility] [address] [id number] [place] [address] Mar, [facility] [address] [id number] [place] [address]36 Mar, [facility] [address] [id number] [place] [address] Mar, [facility] [address] [id number] [place] [address]607 Mar, [facility] [place] [facility] [address] [id number] [place] [address] 6569 Feb, [facility] [place] [facility] [address] [id number] [place] [address]- 6428 Feb, [facility] [place] [facility] [address] [id number] [place] [address] 9240 Feb, [facility] [place] [facility] [address] [id number] [place] [address] 1545 Feb, [facility] [place] [facility] [address] [id number] [place] [address] 8380 Feb, [facility] [place] [facility] [address] [id number] [place] [address] Feb, [facility] [place] [facility] [address] [id number] [place] [address] 7443 Feb, [facility] [place] [facility] [address] [id number] [place] [address] 5032 Feb, [facility] [place] [facility] [address] [id number] [place] [address]- 3166 Feb, [facility] [place] [facility] [address] [id number] [place] [address] 3438 Feb, [facility] [place] [facility] [address] [id number], [place] [address] Feb, [facility] [place] [facility] [address] [id number], [place] [address] Feb, [facility] [place] [facility] [address] [id number] [place] [address] 1373 Feb, [facility] [place] [facility] [address] [id number] [place] [address]- 3485 Feb, [facility] [place] [facility] [address] [id number] [place] [address] 9368 Feb, [facility] [place] [facility] [address] [id number] [place] [address]- 8228 Feb, [facility] [place] [facility] [address] [id number] [place] [address]- 8656 Jan, 2011 [facility] [place] [facility] [address] [id number] [place] [address] 3009 Jan, [facility] [place] [facility] [address] [id number] [place] [address] 6724 Jan, [facility] [place] [facility] [address] [id number] [place] [address]- 1367 Jan, [facility] [place] [facility] [address] [id number] [place] [address]- 8177 Jan, [facility] [place] [facility] [address] [id number] [place] [address]- 8147 Jan, [facility] [place] [facility] [address] [id number] [place] [address]- 7859 Jan, [facility] [place] [facility] [address] [id number], [place] [address] Jan, [facility] [place] [facility] [address] [id number] [place] [address] 9401 Jan, [facility] [place] [facility] [address] [id number], [place] [address] 59[address] Jan, [facility] [place] [facility] [address] [id number], [place] [address] 47[address] Jan, [facility] [place] [facility] [address] [id number], [place] [address] Jan, [facility] [place] [facility] [address] [id number], [place] [address] 8921 Jan, [facility] [place] [facility] [address] [facility] [id number], [place] [address] 1440 Jan, [facility] [place] [facility] [address] [facility] [id number], [place] [address]- 1464 Jan, [facility] [place] [facility] [address] [id number] [place] [address]- 9854 05 Jan, 2012 [facility] [place] [facility] [address] [id number] [place] [address]- 7966 04 Jan, 2012 [facility] [place] [facility] [address] [id number] [place] [address] 2546 21 Dec, 2011 [facility] [place] [facility] [address] [id number] [place] [address] 2546 20 Dec, 2011 [facility] [place] [facility] [address] [id number] [place] [address] 2546 18 Dec, 2011 [facility] [place] [facility] [address] [id number] [place] [address] 2546 18 Dec, 2011 [facility] [place] [facility] [address] [id number] [place] [address]- 5916 10 Dec, 2011 [facility] [place] [facility] [address] [id number] [place] [address]- 9929 10 Dec, 2011 [facility] [place] [facility] [address] [id number] [place] [address] 2543 10 Dec, 2011 [facility] [place] [facility] [address] [id number] [place] [address] 2540 07 Dec, 2011 [facility] [place] [facility] [address] [id number] [place] [address] 2547 30 Nov, 2011 [facility] [place] [facility] [address] [id number] [place] [address] 2546 25 Nov, 2011 [facility] [place] [facility] [address] [id number] [place] [address] 2546 24 Nov, 2011 [facility] [place] [facility] [address] [id number] [place] [address] 2546 Nov, [facility] [place] [facility] [address] [id number] [place] [address] 2546 Nov, [facility] [place] [facility] [address] [id number] [place] [address]- 0739 Nov, [facility] [place] [facility] [address] [id number] [place] [address]- 3451 Oct, [facility] [place] [facility] [address] [id number] [place] [address]- 8066 Oct, [facility] [place] [facility] [address] [id number] [place] [address]- 1936 Oct, [facility] [place] [facility] [address] [id number] [place] [address]- 9219 Oct, [facility] [place] [facility] [address] [id number] [place] [address]- 8477 Oct, [facility] [place] [facility] [address] [id number] [place] [address]- 3751 Oct, [facility] [place] [facility] [address] [id number] [place] [address]- 8181 Oct, [facility] [place] [facility] [address] [id number] [place] [address]- 3450 Sep, [facility] [place] [facility] [address] [id number] [place] [address]- 8906 Sep, [facility] [place] [facility] [address] [id number] [place] [address]- 8892 Sep, [facility] [place] [facility] [address] [id number] [place] [address]- 0584 Sep, [facility] [place] [facility] [address] [id number], [place] [address] 4063 19 Sep, 2011 [facility] [place] [facility] [address] [id number] [place] [address]- 7624 15 Sep, 2011 [facility] [place] [facility] [address] [id number] [place] [address]- 1125 14 Sep, 2011 [facility] [place] [facility] [address] [id number] [place] [address]- 0986 11 Sep, 2011 [facility] [place] [facility] [address] [id number] [place] [address]- 0222 Sep, [facility] [address] [id number] [place] [address]- 3119 Sep, [facility] [place] [facility] [address] [id number] [place] [address]- 5381 August, [facility] [address] [id number] [place] [address]- 5494 August, [facility] [address] [id number] [place] [address]- 1088 August, [facility] [address] [id number] [place] [address]- 0172 August, [facility] [address] [id number] [place] [address]- 0024 August, [facility] [address] [id number] [place] [address]- 7602 Jul, [facility] [address] [id number] [place] [address]- 0989 Jul, [facility] [address] [id number] [place] [address]- 2319 Jul, [facility] [address] [id number] [place] [address]- 8813 Jul, [facility] [address] [id number] [place] [address]- 3514 Jul, [facility] [address] [id number] [place] [address]- 0362 Jul, [facility] [place] [facility] [address] [id number] [place] [address]- 3036 Jul, [facility] [place] [facility] [address] [id number] [place] [address]- 6264 Jun, [facility] [place] [facility] [address] [id number] [place] [address]- 2869 Jun, [facility] [place] [facility] [address] [id number] [place] [address]- 0976 Jun, [facility] [place] [facility] [address] [id number] [place] [address]- 9512 Jun, [facility] [place] [facility] [address] [id number] [place] [address]- 6824 Jun, [facility] [place] [facility] [address] [id number] [place] [address]- 2124 May, [facility] [place] [facility] [address] [id number] [place] [address]- 2790 May, [facility] [place] [facility] [address] [id number] [place] [address]- 2574 May, [facility] [place] [facility] [address] [id number] [place] [address]- 3792 May, [facility] [place] [facility] [address] [id number] [place] [address]- 7596 May, [facility] [place] [facility] [address] [id number] [place] [address]- 5736 May, [facility] [place] [facility] [address] [id number] [place] [address]- 7594 Apr, [facility] [place] [facility] [address] [id number] [place] [address]- 4593 Mar, [facility] [place] [facility] [address] [id number] [place] [address]- 3680 Feb, [facility] [place] [facility] [address] [id number] [place] [address]- 9931 Feb, [facility] [place] [facility] [address] [id number] [place] [address]- 9314 Feb, [facility] [place] [facility] [address] [id number] [place] [address]- 3832 Feb, [facility] [place] [facility] [address] [id number] [place] [address]- 7205 31 Jan, 2011 [facility] [address] [id number] [place] [address]- 7800 27 Jan, 2011 [facility] [place] [facility] [address] [id number] [place] [address]- 4206 26 Jan, 2011 [facility] [address] [id number] [place] [address]- 1006 24 Jan, 2011 [facility] [place] [facility] [address] [id number] [place] [address]- 4817 14 Jan, 2011 [facility] [address] [id number] [place] [address]- 0860 19 Dec, 2010 [facility] [place] [facility] [address] [id number] [place] [address]- 1045 Oct, [facility] [address] [id number] [place] [address]- 0304 August, [facility] [place] [facility] [address] [id number] [place] [address]- 6995 29 Mar, 2010 [facility] [place] [facility] [address] [id number] [place] [address]- 4052 27 Mar, 2010 [facility] [place] [facility] [address] [id number] [place] [address]- 5889 16 Mar, 2010 [facility] [place] [facility] [address] [id number] [place] [address] 2546 15 Mar, 2010 [facility] [place] [facility] [address] [id number] [place] [address] 2543 15 Mar, 2010 [facility] [place] [facility] [address] [id number] [place] [address] 254 08 Mar, 2010 [facility] [place] [facility] [address] [id number] [place] [address]- 2546 03 Mar, 2010 [facility] [place] [facility] [address] [id number] [place] [address]- 3052 24 Feb, 2010 [facility] [place] [facility] [address] [id number] [place] [address]- 9198 24 Feb, 2010 [facility] [place] [facility] [address] [id number] [place] [address]- 6475 15 Feb, 2010 [facility] [place] [facility] [address] [id number] [place] [address]- 7078 19 Jan, 2010 [facility] [place] [facility] [address] [id number] [place] [address]- 0335 18 Jan, 2010 [facility] [place] [facility] [address] [id number] [place] [address]- 9539 18 Jan, 2010 [facility] [place] [facility] [address] [id number] [place] [address]- 8214 Nov, [facility] [place] [facility] [address] [id number] [place] [address]- 0719 Sep, [facility] [place] [facility] [address] [id number] [place] [address]- 3206 August, [facility] [place] [facility] [address] [id number] [place] [address]- 9654 30 Mar, 2009 [facility] [place] [facility] [address] [id number] [place] [address]- 4514 07 Mar, 2009 [facility] [place] [facility] [address] [facility] [id number] [place] [address]- 2907 17 Feb, 2009 [facility] [place] [facility] [address] [id number], [place] [address]- 9752 Feb, [facility] [place] [facility] [address] [id number] [place] [address]- 6468 10 Feb, 2009 [facility] [place] [facility] [address] [id number] [place] [address]- 9812 10 Feb, 2009 [facility] [place] [facility] [address] [id number] [place] [address]- 1851 06 Feb, 2009 [facility] [place] [facility] [address] [id number], [place] [address]- 3210 Jan, [facility] [address] [id number], [place] [address]- 0429 Jan, [facility] [id number] [address] Jan, [facility] [id number], [place] [address]- 7531 Jan, [facility] [id number], [place] [address]- 7994 Nov, [facility] [id number], [place] [address]- 8932 Sep, [facility] [id number] [address] [address]26 August, [facility] [id number], [place] [address]- 5532 Jul, [facility] [address] [id number], [place] [address]- 1146 May, IMMUNIZATIONS No Known Immunizations SOCIAL HISTORY Never Assessed REASON FOR VISIT Medication refill request PLAN OF CARE VITAL SIGNS MEDICATIONS Medication Instructions Dosage Frequency Start Date End Date Duration Status Tessalon Perles 100 mg Orally Three times a day 1 capsule as needed 8h Jul, Active RESULTS No Results PROCEDURES No Known [...] History Knee Surgery 07/16/17 Hospitalization History ED [facility]- left hand/wrist swelling 10/09/2017
--- OUTSIDE RECORDS SUMMARY | 2018-01-01 12:04 | XMS REPORT ---
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 Active 33498876 Problem Colon polyp K63.5 Active 34492741 Problem Bilateral low back pain without sciatica M54.5 Active 735211476 Problem Screening breast examination Z12.39 Active 774118794 Problem Postmenopausal Z78.0 Active 08302707 Problem Osteopenia M85.80 Active 438024527 Problem Cigarette nicotine dependence without complication F17.210 Active 04578792 Problem Type 2 diabetes mellitus with diabetic peripheral angiopathy without gangrene E11.51 Active 919523145 Problem Vascular dementia without behavioral disturbance F01.50 Active [id number] Problem Unspecified atherosclerosis of [place] arteries of extremities, unspecified extremity I70.209 Active 534938008528480 Problem Arthritis M19.90 Active 1778772 Problem Chronic atrial fibrillation I48.2 Active 045951645 Problem Chronic obstructive pulmonary disease with acute lower respiratory infection J44.0 Active 731653573 Problem Other chronic pancreatitis K86.1 Active 810425260 Problem Stress incontinence of urine N39.3 Active 29386064 Problem Controlled type 2 diabetes mellitus without complication, without long -term current use of insulin E11.9 Active 248709529 Problem Unspecified psychosis F29 Active 92960784 Problem Xeroderma Q80.9 Active 76992577 Problem COPD (chronic obstructive pulmonary disease) J44.9 Active 53136382 Problem Dementia without behavioral disturbance, unspecified dementia type F03.90 Active 08814060 Problem Gastroparesis K31.84 Active 076493584 Problem Type 2 diabetes mellitus with diabetic neuropathy, without long-term current use of insulin E11.40 Active 91376772 Problem Osteoporosis M81.0 Active 35210262 Problem Atherosclerosis of [place] artery of both lower extremities with intermittent claudication I70.213 Active 521397700564617 Problem Hyperlipidemia E78.5 Active 78743544 Problem Diabetic polyneuropathy associated with type 2 diabetes mellitus E11.42 Active 13976283 Problem Essential tremor G25.0 Active 82536037 Problem Atherosclerotic heart disease of [place]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 I25.118 Active 0081682047984 Problem Generalized anxiety disorder F41.1 Active 292541197 Problem Gastroesophageal reflux disease, esophagitis presence not specified K21.9 Active 443945474 Problem Coronary artery disease involving [place] coronary artery of [place] 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 I25.118 Active 9896384426162 Problem Postconcussion syndrome F07.81 Active 98483199 Problem Chronic pain syndrome G89.4 Active 019871842 Problem Migraine without aura and without status migrainosus, not intractable G43.009 Active 937236623 Problem Paroxysmal atrial fibrillation I48.0 Active 371622242 Problem Migraine without aura and with status migrainosus, not intractable G43.001 Active 945933075 Problem Cervicalgia M54.2 Active 4967379803079 Problem Acute exacerbation of chronic obstructive pulmonary disease (COPD) J44.1 Active 795433028 Problem Major depressive disorder, recurrent episode, moderate F33.1 Active 898712760 Problem Crohn''s disease without complication, unspecified gastrointestinal tract location K50.90 Active 57340762 Problem Chronic fatigue R53.82 Active 58641763 Problem Bipolar affective disorder, currently depressed, moderate F31.32 Active 775424888 ALLERGIES Substance Reaction Event Type Date Status Penicillin V Potassium rash Drug Allergy Jul, Active Neosporin rash Drug Allergy Jul, Active Ibuprofen rash Drug Allergy Jul, Active Glipizide hives, nausea Drug Allergy Jul, Active ENCOUNTERS Encounter Location Date Diagnosis [facility] [id number], [place] [address] Nov, [facility] [address] [facility] [id number] [address] Nov, [facility] [id number], [place] [address] Oct, [facility] [address], [place] [address] Oct, Bipolar affective disorder, currently depressed, moderate F31.32 ; Vascular dementia without behavioral disturbance F01.50 and Generalized anxiety disorder F41.1 [facility] [address], [place] [address] Oct, [facility] [id number] [place] [address] 52964- 1209 Oct, [facility] [address] [place] [address] 10930- 9542 Oct, Edema of both legs R60.0 [facility] [id number] [place] [address] 65257- 9662 Oct, [facility] [id number] [place] [address] 58260- 4197 Sep, [facility] [address], [place] [address] 8117 Sep, [facility] [id number] [place] [address] 43776- 5474 Sep, [facility] [address], [place] [address] 4181 Sep, Encounter for well woman exam with routine gynecological exam Z01.419 ; Screening for STDs (sexually transmitted diseases) Z11.3 ; Screening breast examination Z12.31 and Overweight (BMI 25.0-29.9) E66.3 [facility] [address], [place] [address] 0947 Sep, [facility] [id number] [place] [address] 91811- 9724 Sep, [facility] [address], [place] [address] 9902 Sep, [facility] [id number] [place] [address] 58813- 9231 August, [facility] [id number] [place] [address] 29770- 1055 August, [facility] [id number] [place] [address] 37657- 9502 August, Type 2 diabetes mellitus with diabetic neuropathy, without long-term current use of insulin E11.40 and Sprain of right ankle, unspecified ligament, initial encounter S93.401A [facility] [id number] [place] [address] 65217- 1742 August, [facility] [id number] [place] [address] 06467- 1059 August, [facility] [id number] [place] [address] 75971- 8124 August, [facility] [id number] [place] [address] 49805- 2378 August, Gastroesophageal reflux disease, esophagitis presence not specified K21.9 [facility] [id number] [place] [address] 15706- 7337 August, [facility] [id number] [place] [address] 62188- 9573 August, [facility] [id number] [place] [address] 45529- 0273 August, [facility] [id number] [place] [address] 58026- 5037 August, Type 2 diabetes mellitus with diabetic neuropathy, without long-term current use of insulin E11.40 and Elevated liver enzymes R74.8 [facility] [id number] [place] [address] 68567- 4224 Jul, [facility] [id number] [place] [address] 47724- 3040 Jul, Cough R05 [facility] [address] [place] [address] 16214- 0584 Jul, [facility] [address] 97011- 3130 Jul, [facility] [address] 20165- 5105 Jul, Bipolar affective disorder, currently depressed, moderate F31.32 ; Vascular dementia without behavioral disturbance F01.50 and Generalized anxiety disorder F41.1 [place] [address] 93569- 0594 Jul, [facility] [address] 12878- 6880 Jul, Type 2 diabetes mellitus with diabetic neuropathy, without long-term current use of insulin E11.40 and Elevated liver enzymes R74.8 [place] [address] 10004- 5842 Jul, [facility] [address] 89201- 2807 Jul, [facility] [address] 95868- 0026 Jul, [facility] [address] 82262- 8899 Jul, Post-menopausal Z78.0 [place] [address] 62863- 2184 Jul, Stress incontinence of urine N39.3 [facility] [id number] [place] [address] 67613- 1088 Jul, [facility] [address] 00775- 4551 Jul, [facility] [address] 57521- 8968 Jul, Stress incontinence of urine N39.3 and Cough R05 [facility] [address] 36100- 9072 Jul, [facility] [address] [place] [address] 46477- 2516 Jul, [facility] [address] [place] [address] 51606- 6166 Jul, [facility] [id number] [place] [address] 86285- 1166 Jul, Gastroesophageal reflux disease, esophagitis presence not specified K21.9 [facility] [address] [place] [address] 06966- 8986 Jun, Diabetic polyneuropathy associated with type 2 diabetes mellitus E11.42 [facility] [id number] [place] [address] 58028- 0423 Jun, Diabetic polyneuropathy associated with type 2 diabetes mellitus E11.42 ; Coronary artery disease involving [place] coronary artery of [place] 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 I25.118 and Paroxysmal atrial fibrillation I48.0 [facility] [address] [place] [address] 46861- 9995 Jun, [facility] [id number] [place] [address] 93832- 0549 Jun, [facility] [address] [place] [address] 24318 2548 Jun, Gastroenteritis K52.9 [facility] [id number] [place] [address] 93517 2546 Jun, Gastroenteritis K52.9 [facility] [address], [place] [address]- 9593 Jun, [facility] [id number] [place] [address] 66357 2546 Jun, [facility] [address], [place] [address]- 3096 Jun, Sprain of right ankle, unspecified ligament, initial encounter S93.401A ; Type 2 diabetes mellitus with diabetic neuropathy, without long-term current use of insulin E11.40 ; Atherosclerosis of 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 [id number] [place] [address] 56152 -1767 17 Jun, 2017 Cough R05 and Chronic obstructive pulmonary disease with acute lower respiratory infection J44.0 [place] [id number] [place] [address] 19491- 8490 Jun, [place] [address] 43283- 0927 Jun, Coughing R05 ; Unspecified atherosclerosis of [place] arteries of extremities, unspecified extremity I70.209 ; Type 2 diabetes mellitus with diabetic peripheral angiopathy without gangrene E11.51 ; Crohn''s disease without complication, unspecified gastrointestinal tract location K50.90 ; Other chronic pancreatitis K86.1 and Chronic atrial fibrillation I48.2 [facility] [id number] [place] [address] 36518 -3531 Jun, [place] [id number] [place] [address] 83753- 2790 Jun, Bipolar affective disorder, currently depressed, moderate F31.32 ; Vascular dementia without behavioral disturbance F01.50 and Generalized anxiety disorder F41.1 [facility] [id number] [place] [address] 55957- 4332 May, Generalized anxiety disorder F41.1 [facility] [id number] [place] [address] 18690- 4275 May, [facility] [id number] [place] [address] 75700- 4721 May, [facility] [id number] [place] [address] 89560- 1196 May, Coughing R05 [facility] [address] [place] [address] 69404- 9953 May, [facility] [id number] [place] [address] 83420- 5301 May, Bipolar affective disorder, currently depressed, moderate F31.32 ; Vascular dementia without behavioral disturbance F01.50 and Generalized anxiety disorder F41.1 [facility] [id number] [place] [address] 11646- 7628 Apr, Generalized anxiety disorder F41.1 [facility] [id number] [place] [address] 42020- 2350 Apr, [facility] [facility] [id number] [place] [address] 77882- 5928 Apr, Vascular dementia without behavioral disturbance F01.50 ; Generalized anxiety disorder F41.1 and Bipolar affective disorder, currently depressed, moderate F31.32 [facility] [place] [id number] [place] [address] 80148- 0302 Apr, Generalized anxiety disorder F41.1 [facility] [id number] [place] [address] 38041 -3239 Apr, Cough R05 and Acute exacerbation of chronic obstructive pulmonary disease (COPD) J44.1 [facility] [id number] [place] [address] 02587- 2518 Apr, [facility] [id number] [place] [address] 83266 -0897 Mar, Cough R05 and Cigarette nicotine dependence without complication F17.210 [facility] [id number] [place] [address] 93113- 4389 Mar, [facility] [id number] [place] [address] 80984- 2677 Feb, Generalized anxiety disorder F41.1 ; Major depressive disorder, recurrent episode, moderate F33.1 ; Vascular dementia without behavioral disturbance F01.50 and Unspecified psychosis F29 [facility] [place] [id number] [place] [address] 98301- 9462 Feb, [place] [address] 60306- 5944 Feb, [facility] [id number] [place] [address] 41320- 5196 Feb, Generalized anxiety disorder F41.1 [place] [address] 81811- 6500 Feb, Generalized anxiety disorder F41.1 [place] [address] 07181- 4342 Feb, Dizziness R42 ; Chronic fatigue R53.82 ; Postconcussion syndrome F07.81 ; Fall, initial encounter W19.XXXA and Disorientation R41.0 [place] [address] 76706- 5094 Feb, Postconcussion syndrome F07.81 ; Injury of head, initial encounter S09.90XA ; Fall, initial encounter W19.XXXA ; Disorientation R41.0 and Acute cystitis with hematuria N30.01 [facility] [id number] [place] [address] 37106- 5405 Jan, Gastroesophageal reflux disease, esophagitis presence not specified K21.9 ; Post-menopausal Z78.0 and Migraine without aura and without status migrainosus, not intractable G43.009 [facility] [id number] [place] [address] 38239- 5673 Jan, [place] [address] 60133- 5060 Jan, Generalized anxiety disorder F41.1 ; Major depressive disorder, recurrent episode, moderate F33.1 ; Vascular dementia without behavioral disturbance F01.50 and Unspecified psychosis F29 [facility] [id number] [place] [address] 73635- 1149 Jan, Pneumonia of left lower lobe due to infectious organism J18.1 [facility] [address], [place] [address]- 7643 05 Jan, 2017 Migraine without aura and with status migrainosus, not intractable G43.001 [facility] [address] [place] [address] 49123 -0685 04 Jan, 2017 Migraine without aura and without status migrainosus, not intractable G43.009 [facility] [id number] [place] [address] 76869- 7137 Dec, Hematoma T14.8 [facility] [id number] [place] [address] 17671- 4916 Dec, [facility] [id number] [place] [address] 63211 -2940 Nov, Fatigue, unspecified type R53.83 [facility] [id number] [place] [address] 02157- 3036 Nov, Scabies B86 and Coronary artery disease involving [place] coronary artery of [place] 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 I25.118 [facility] [id number] [place] [address] 87030- 2809 Nov, [facility] [id number] [place] [address] 73603- 9533 Nov, [facility] [place] [id number] [place] [address] 32651- 1634 Oct, [facility] [id number] [place] [address] 34818- 0473 Oct, Generalized anxiety disorder F41.1 and Major depressive disorder, recurrent episode, moderate F33.1 [facility] [id number] [place] [address] 26657- 7545 Oct, Cramp of both lower extremities R25.2 [facility] [place] [id number] [place] [address] 30149- 2920 Oct, Leg cramps R25.2 [facility] [address] [place] [address] 42412- 4692 Oct, Chronic pain syndrome G89.4 [facility] [id number] [place] [address] 46338- 1475 Oct, [facility] [id number] [place] [address] 59851- 0000 Oct, [facility] [id number] [place] [address] 46819- 6730 Oct, Routine gynecological examination Z01.419 and Screening for breast cancer Z12.31 [facility] [place] [id number] [place] [address] 51458- 4717 Sep, Diarrhea R19.7 [facility] [id number] [place] [address] 18755- 9048 Sep, Back pain M54.9 [facility] [id number] [place] [address] 94486- 5557 Sep, [facility] [id number] [place] [address] 48190- 2843 Sep, [facility] [id number] [place] [address] 86760 -3729 August, Xeroderma Q80.9 [facility] [id number] [place] [address] 33041- 6201 August, Dementia without behavioral disturbance, unspecified dementia type F03.90 [facility] [id number] [place] [address] 61667- 5245 August, Chronic pain syndrome G89.4 [facility] [id number] [place] [address] 93704- 1588 August, [facility] [id number] [place] [address] 20406- 4105 August, Hyperlipidemia E78.5 ; Other fatigue R53.83 and Other specified hypotension I95.89 [facility] [id number] [place] [address] 82049 -7607 August, Dysuria R30.0 ; Other fatigue R53.83 and Other specified hypotension I95.89 [facility] [address] 49908- 5226 August, [place] [address] 05698- 5125 Jul, Pain in left knee M25.562 and Gastroenteritis K52.9 [place] [address] 46772- 0135 Jul, [place] [address] 00524- 6679 Jul, Diarrhea R19.7 [facility] [address] 97360 -8746 Jul, Spider bite, accidental or unintentional, initial encounter T63.301A [place] [address] 84687- 3756 Jul, Primary osteoarthritis of right knee M17.11 and Arthritis M19.90 [place] [address] 83484- 2311 Jul, Generalized anxiety disorder F41.1 and Major depressive disorder, recurrent episode, moderate F33.1 [place] [address] 38614- 3925 Jul, Type 2 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 and Temporal headache R51 [place] [address] 56220- 7788 Jul, Back pain M54.9 [place] [address] 36621- 1442 Jul, [place] [address] 55434- 6479 Jul, [facility] [id number] [place] [address] 64404- 5189 Jun, Nausea R11.0 [facility] [id number] [place] [address] 59759 -0407 Jun, Acute suppurative otitis media of both ears without spontaneous rupture of tympanic membranes, recurrence not specified H66.003 and COPD exacerbation J44.1 [facility] [id number] [place] [address] 19528- 1380 Jun, Generalized anxiety disorder F41.1 [place] [address] 72719- 9197 Jun, [facility] [place] [address] 30650 -8492 Jun, [facility] [address] 97980 -1244 Jun, Shortness of breath R06.02 and COPD exacerbation J44.1 [facility] [id number] [place] [address] 90172- 4215 Jun, Eczema, unspecified type L30.9 [facility] [place] [id number] [place] [address] 51604- 4357 Jun, [facility] [id number] [place] [address] 86086- 6578 May, [facility] [place] [id number] [place] [address] 59925- 4811 May, Muscle cramping R25.2 [facility] [address] 73644- 5538 May, [facility] [id number] [place] [address] 21435- 1906 Apr, Diarrhea R19.7 [place] [address] 84376- 0650 Apr, [facility] [id number] [place] [address] 65756- 6828 Apr, Chronic pain syndrome G89.4 [facility] [place] [id number] [place] [address] 19280- 5101 Apr, Cramp of both lower extremities R25.2 and Vascular dementia without behavioral disturbance F01.50 [place] [address] 75077- 4030 Apr, Type 2 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 and Cigarette nicotine dependence without complication F17.210 [place] [address] 54108- 4573 Mar, Generalized anxiety disorder F41.1 [place] [address] 41143- 5028 Feb, Generalized anxiety disorder F41.1 and Major depressive disorder, recurrent episode, moderate F33.1 [facility] [id number] [place] [address] 18949- 5838 Feb, [facility] [address] 92010 -5186 Feb, Dysuria R30.0 and Acute cystitis with hematuria N30.01 [facility] [id number] [place] [address] 00615- 8494 Jan, [facility] [place] [id number] [place] [address] 08424- 4538 Jan, [place] [address] 32260- 7326 Jan, [place] [address] 67183- 6670 Jan, [facility] [id number] [place] [address] 78987 -8953 10 Jan, 2016 Wasp sting, accidental or unintentional, initial encounter T63.461A [facility] [address] [place] [place] [address] 80076- 6207 06 Jan, 2016 Encounter for immunization Z23 [facility] [id number] [place] [address] 89211- 3725 Jan, [facility] [id number] [place] [address] 96156- 6806 Jan, [facility] [id number] [place] [address] 63877- 5094 Dec, Generalized anxiety disorder F41.1 and Major depressive disorder, recurrent episode, moderate F33.1 [facility] [id number] [place] [address] 74907- 0820 Dec, Routine gynecological examination Z01.419 ; Postmenopausal Z78.0 ; Screening breast examination Z12.39 ; Osteopenia M85.80 and Breast cancer screening Z12.39 [facility] [id number] [place] [address] 11243- 1735 20 Dec, 2015 [facility] [id number] [place] [address] 68895- 2174 19 Dec, 2015 [facility] [id number] [place] [address] 57196- 1267 16 Dec, 2015 [facility] [id number] [place] [address] 92494- 8956 Dec, [facility] [id number] [place] [address] 75991- 0088 14 Dec, 2015 [facility] [address] [place] [address] 17164- 6292 06 Dec, 2015 [facility] [id number] [place] [address] 32687- 3732 Nov, [facility] [address], [place] [address] Nov, Cough R05 ; Other viral agents as the cause of diseases classified elsewhere B97.89 and Acute upper respiratory infection, unspecified J06.9 [facility] [address] [facility] [id number] [place] [address]- 4674 Nov, [facility] [address] [facility] [id number], [place] [address]- 9807 Nov, [facility] [address] [facility] [id number], [place] [address]- 3339 Nov, [facility] [address] [facility] [id number], [place] [address]- 3977 Nov, [facility] [address] [facility] [id number] [place] [address]- 0556 Nov, [facility] [address] [facility] [id number], [place] [address]- 7822 Oct, [facility] [id number], [place] [address]- 9290 Oct, [facility] [id number], [place] [address]- 0592 Oct, [facility] [id number], [place] [address]- 7684 Oct, Chronic pain syndrome G89.4 [facility] [address], [place] [address]- 7417 Sep, Generalized anxiety disorder F41.1 and Major depressive disorder, recurrent episode, moderate F33.1 [facility] [address], [place] [address]- 0996 Sep, [facility] [address] [facility] [id number], [place] [address]- 9163 Sep, [facility] [address], [place] [address]- 7765 14 Sep, 2015 Generalized anxiety disorder F41.1 [facility] [id number], [place] [address]- 5456 13 Sep, 2015 Cramp of both lower extremities R25.2 and Cervicalgia M54.2 [facility] [address] [place] [address] 87164- 2828 Sep, Generalized anxiety disorder F41.1 [facility] [id number] [place] [address] 85400- 0081 Sep, [facility] [id number] [place] [address] 48403 -8579 August, Rash R21 ; Itching L29.9 and Allergic response, subsequent encounter T78.40XD [facility] [id number] [place] [address] 29506- 1338 August, Primary insomnia F51.01 [facility] [id number] [place] [address] 99093 -4819 August, Rash R21 ; Itching L29.9 and Allergic response, initial encounter T78.40XA [facility] [id number] [place] [address] 79288- 9666 August, [facility] [id number] [place] [address] 21772- 6983 August, Cramp of both lower extremities R25.2 [facility] [id number] [place] [address] 64132- 2791 August, Back pain M54.9 [facility] [id number] [place] [address] 88698- 9459 August, [facility] [id number] [place] [address] 06832- 7053 August, [facility] [id number] [place] [address] 29577 -5505 August, Cramp of both lower extremities R25.2 [facility] [id number] [place] [address] 07629- 4030 August, [facility] [id number] [place] [address] 73465- 7419 August, Syncope R55 ; Paroxysmal atrial fibrillation I48.0 ; Dementia without behavioral disturbance, unspecified dementia type F03.90 and Chronic pain syndrome G89.4 [facility] [id number] [place] [address] 23125- 9193 August, Type 2 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 and Syncope R55 [facility] [id number] [place] [address] 99860- 6452 Jul, [facility] [id number] [place] [address] 58562- 8413 Jul, [facility] [id number] [place] [address] 64199- 1375 Jul, [facility] [id number] [place] [address] 94121- 4854 Jul, [facility] [id number] [place] [address] 42072- 9074 Jul, [facility] [id number] [place] [address] 25725- 0334 Jul, UTI (urinary tract infection) N39.0 [facility] [address] [place] [address] 17875- 7431 Jul, [facility] [address] [place] [address] 88337- 1428 Jul, Major depressive disorder, recurrent episode, moderate F33.1 and Generalized anxiety disorder F41.1 [facility] [address] [place] [address] 17692- 7845 Jul, Generalized anxiety disorder F41.1 [facility] [id number] [place] [address] 59664- 5014 Jul, Diarrhea R19.7 [facility] [address] [place] [address] 88698- 5314 Jul, [facility] [id number] [place] [address] 18149- 2639 Jun, [facility] [address], [place] [address]- 6165 Jun, Eczema L30.9 [facility] [address], [place] [address]- 9956 Jun, [facility] [address], [place] [address]- 4431 Jun, COPD (chronic obstructive pulmonary disease) J44.9 [facility] [address], [place] [address]- 6301 Jun, [facility] [address] [place] [address] 20015- 5852 Jun, Major depressive disorder, recurrent episode, moderate F33.1 and Generalized anxiety disorder F41.1 [facility] [address], [place] [address]- 2101 May, [facility] [address], [place] [address]- 4918 May, UTI (urinary tract infection) N39.0 [facility] [address], [place] [address]- 9636 May, [facility] [address], [place] [address]- 2274 May, [facility] [address], [place] [address]- 7167 May, [facility] [id number], [place] [address]- 4130 May, [facility] [address], [place] [address]- 5799 Apr, Major depressive disorder, recurrent episode, moderate F33.1 and Generalized anxiety disorder F41.1 [facility] [address], [place] [address]- 9814 Apr, COPD (chronic obstructive pulmonary disease) J44.9 [facility] [address], [place] [address]- 3240 Apr, [facility] [id number] [place] [address] 94860- 3812 Apr, Atrial flutter I48.92 [facility] [id number] [place] [address] 12694- 1756 Apr, [facility] [id number] [place] [address] 94388- 0235 Apr, [facility] [id number] [place] [address] 08657- 6408 Mar, [facility] [id number] [place] [address] 85310- 5395 Mar, [facility] [id number] [place] [address] 09234- 2399 Mar, [facility] [id number] [place] [address] 30951- 5568 Mar, Hyperlipidemia E78.5 ; Type 2 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 ; Major depressive disorder, recurrent episode, moderate F33.1 and Chronic pain syndrome G89.4 [facility] [address], [place] [address]- 7228 16 Mar, 2015 [facility] [address], [place] [address]- 2149 14 Mar, 2015 [facility] [address], [place] [address]- 1474 Mar, [facility] [id number] [place] [address] 29994- 8476 Mar, [facility] [address], [place] [address]- 7813 30 Feb, 2015 COPD (chronic obstructive pulmonary disease) J44.9 and Back pain M54.9 [facility] [address], [place] [address]- 7777 Feb, [facility] [address], [place] [address]- 9940 Feb, [facility] [address], [place] [address]- 8224 Feb, [facility] [address] [place] [address] 85735- 6083 Feb, [facility] [address], [place] [address]- 7736 Feb, [facility] [id number] [place] [address] 89831- 3053 Feb, [facility] [address] [place] [address] 89639- 3710 Feb, [facility] [id number] [place] [address] 07651- 1344 Feb, [facility] [address] [place] [address] 50558- 6174 Feb, Diabetes E11.9 ; Back pain M54.9 and COPD (chronic obstructive pulmonary disease) J44.9 [facility] [address], [place] [address]- 9747 Jan, [facility] [address], [place] [address]- 9967 Jan, Major depression, recurrent F33.9 and Generalized anxiety disorder F41.1 [facility] [address], [place] [address]- 3474 Jan, Chronic pain G89.29 [facility] [address], [place] [address]- 8334 Jan, [facility] [address], [place] [address]- 2007 Jan, [facility] [id number] [place] [address] 14692- 8695 05 Jan, 2015 [facility] [id number] [place] [address] 74233- 6454 Jan, [facility] [id number] [place] [address] 23762- 2509 Jan, Nicotine dependence F17.200 [facility] [id number] [place] [address] 43181 2543 Jan, Nicotine dependence F17.200 and Back pain M54.9 [facility] [id number] [place] [address] 50379- 9795 Jan, [facility] [id number] [place] [address] 90750- 1631 28 Dec, 2014 [facility] [id number] [place] [address] 23907- 4089 25 Dec, 2014 Anxiety, generalized 300.02 and Major depression, recurrent 296.30 [facility] [id number] [place] [address] 87162- 7076 24 Dec, 2014 [facility] [id number] [place] [address] 02087 2549 21 Dec, 2014 [facility] [address] [place] [address] 65802- 9153 17 Dec, 2014 [facility] [id number] [place] [address] 02848 2541 15 Dec, 2014 [facility] [id number] [place] [address] 16185- 254 14 Dec, 2014 [facility] [id number] [place] [address] 27013 2547 11 Dec, 2014 [facility] [id number] [place] [address] 32755- 254 10 Dec, 2014 [facility] [id number] [place] [address] 17744- 2546 Dec, Skin tear 879.8 [facility] [address], [place] [address]- 1090 Dec, Routine gynecological examination V72.31 ; Breast cancer screening V76.10 and Family history of breast cancer in first degree relative V16.3 [facility] [address], [place] [address]- 0663 Dec, [facility] [id number] [place] [address] 06213- 5172 Dec, [facility] [id number] [place] [address] 47359- 1841 Nov, [facility] [id number] [place] [address] 10500- 7692 Nov, [facility] [id number] [place] [address] 33817- 9439 Nov, Poor balance 781.99 and Vascular dementia, uncomplicated 290.40 [facility] [id number] [place] [address] 76069- 8346 Nov, [facility] [id number] [place] [address] 77257- 0142 Nov, Major depression, recurrent 296.30 and Anxiety, generalized 300.02 [facility] [id number] [place] [address] 38658- 9492 Nov, [facility] [address] [place] [address] 71466- 6595 Nov, [facility] [address], [place] [address]- 9231 Nov, [facility] [id number] [place] [address] 28493- 2449 Nov, [facility] [address], [place] [address]- 8767 Nov, Vascular dementia, uncomplicated 290.40 and Lumbago 724.2 [facility] [address], [place] [address]- 5130 Nov, [facility] [address], [place] [address]- 2665 Nov, [facility] [address], [place] [address]- 4597 Nov, [facility] [address] [place] [address] 68701- 3855 Oct, [facility] [address], [place] [address]- 9112 Oct, [facility] [id number] [place] [address] 73028- 0670 Oct, [facility] [address], [place] [address]- 2079 Oct, COPD (chronic obstructive pulmonary disease) 496 and Hyperlipidemia 272.4 [facility] [address], [place] [address]- 2734 Oct, Major depression, recurrent 296.30 and Anxiety, generalized 300.02 [facility] [address], [place] [address]- 3996 Oct, [facility] [address], [place] [address]- 2285 Oct, [facility] [address], [place] [address]- 0176 Oct, [facility] [address], [place] [address]- 7298 Sep, Lumbago 724.2 and Anxiety state, unspecified 300.00 [facility] [address], [place] [address]- 8694 Sep, [facility] [address], [place] [address]- 6168 Sep, [facility] [address], [place] [address]- 3485 August, [facility] [id number] 9190 August, Major depression, recurrent 296.30 ; Anxiety, generalized 300.02 and No condition on [place] II V71.09 [facility] [address], [place] [address]- 6229 August, [facility] [id number], [place] [address]- 8546 August, [facility] [id number] [address]- 4138 Jul, [facility] [address], [place] [address]- 0114 Jul, [facility] [address], [place] [address]- 3719 Jul, [facility] [address], [place] [address]- 8013 Jun, [facility] [address], [place] [address]- 0563 Jun, [facility] [place] [facility] [address], [place] [address]- 0010 Jun, [facility] [place] [facility] [id number], [place] [address]- 3347 Jun, [facility] [place] [facility] [id number], [place] [address]- 6133 Jun, [facility] [place] [facility] [id number]- 6876 Jun, [facility] [place] [facility] [id number] 1170 Jun, [facility] [place] [facility] [id number] [address]- 8066 17 Jun, 2014 [facility] [place] [facility] [address] [place] [address]- 1072 13 Jun, 2014 [facility] [place] [facility] [address] [id number] [place] [address]- 4483 13 Jun, 2014 [facility] [place] [facility] [address] [id number] [place] [address]- 7395 10 Jun, 2014 [facility] [place] [facility] [address] [id number] [place] [address]- 3416 10 Jun, 2014 [facility] [place] [facility] [address] [id number] [place] [address]- 1737 07 Jun, 2014 [facility] [place] [facility] [address] [id number] [place] [address]- 4618 07 Jun, 2014 [facility] [place] [facility] [address] [facility] [id number] [place] [address]- 5818 Jun, [facility] [place] [facility] [address] [facility] [id number] [place] [address]- 4013 Jun, 2014 [facility] [place] [facility] [address] [facility] [id number] [place] [address]- 0798 May, 2014 [facility] [place] [facility] [address] [facility] [id number] [place] [address]- 5723 May, 2014 [facility] [place] [facility] [address] [facility] [id number] [place] [address]- 8170 May, 2014 [facility] [place] [facility] [address] [facility] [id number] [place] [address]- 3418 May, 2014 [facility] [place] [facility] [address] [facility] [id number] [place] [address]- 7658 May, 2014 [facility] [place] [facility] [address] [id number] [place] [address]- 6212 May, 2014 [facility] [place] [facility] [address] [facility] [id number] [place] [address]- 7652 19 May, 2014 [facility] [place] [facility] [address] [facility] [id number] [place] [address]- 0219 May, 2014 [facility] [place] [facility] [address] [id number] [place] [address]- 6704 May, [facility] [place] [facility] [address] [id number] [place] [address]- 5496 May, 2014 [facility] [place] [facility] [address] [id number] [place] [address]- 6996 May, 2014 [facility] [place] [facility] [address] [id number] [place] [address]- 9632 May, 2014 [facility] [place] [facility] [address] [id number] [place] [address]- 1345 May, [facility] [place] [facility] [address] [id number] [place] [address] May, [facility] [place] [facility] [address] [facility] [id number] [place] [address] Apr, [facility] [place] [facility] [address] [id number] [place] [address] Apr, [facility] [place] [facility] [address] [facility] [id number] [place] [address] Apr, [facility] [place] [facility] [address] [facility] [id number] [place] [address] Apr, [facility] [place] [facility] [address] [id number] [place] [address] Apr, [facility] [place] [facility] [address] [id number], [place] [address] Apr, [facility] [place] [facility] [address] [id number], [place] [address] Apr, [facility] [place] [facility] [address] [facility] [id number], [place] [address] Apr, [facility] [place] [facility] [address] [facility] [id number], [place] [address] Apr, [facility] [place] [facility] [address] [id number] [place] [address] Apr, [facility] [place] [facility] [address] [id number] [place] [address] Apr, [facility] [place] [facility] [address] [id number] [place] [address] Apr, [facility] [place] [facility] [address] [id number] [place] [address] Mar, [facility] [place] [facility] [address] [id number] [place] [address] 31 Mar, 2014 [facility] [place] [facility] [address] [id number] [place] [address] Mar, [facility] [place] [facility] [address] [id number] [place] [address] 30 Mar, 2014 [facility] [place] [facility] [address] [id number] [place] [address] Mar, [facility] [place] [facility] [address] [id number] [place] [address] 29 Mar, 2014 [facility] [place] [facility] [address] [id number] [place] [address]- [address] Mar, [facility] [place] [facility] [address] [id number] [place] [address] Mar, [facility] [place] [facility] [address] [id number] [place] [address]- [address] 15 Mar, 2014 [facility] [place] [facility] [address] [id number] [place] [address]- [address] 15 Mar, 2014 [facility] [place] [facility] [address] [id number] [place] [address] 15 Mar, 2014 [facility] [place] [facility] [address] [id number] [place] [address] 15 Mar, 2014 [facility] [place] [facility] [address] [id number] [place] [address] Mar, [facility] [place] [facility] [address] [id number] [place] [address]28 Mar, [facility] [place] [facility] [address] [id number] [place] [address] Mar, [facility] [place] [facility] [address] [facility] [id number] [place] [address] Mar, [facility] [place] [facility] [address] [id number] [place] [address] Mar, [facility] [place] [facility] [address] [id number] [place] [address] Mar, [facility] [place] [facility] [address] [id number] [place] [address] Mar, [facility] [place] [facility] [address] [id number] [place] [address] Mar, [facility] [place] [facility] [address] [id number], [place] [address] Feb, [facility] [place] [facility] [address] [id number] [place] [address] Feb, [facility] [place] [facility] [address] [id number] [place] [address] Feb, [facility] [place] [facility] [address] [id number], [place] [address] Feb, [facility] [place] [facility] [address] [id number], [place] [address] Feb, [facility] [place] [facility] [address] [id number] [place] [address] Feb, [facility] [place] [facility] [address] [address] [id number], [place] [address] Feb, [facility] [place] [facility] [address] [id number], [place] [address] Feb, [facility] [place] [facility] [address] [id number] [place] [address]- 0161 Feb, [facility] [place] [facility] [address] [id number] [place] [address]- 9693 Feb, [facility] [place] [facility] [address] [id number] [place] [address]- 9588 Feb, [facility] [place] [facility] [address] [id number] [place] [address]- 4538 Feb, [facility] [place] [facility] [address] [id number] [place] [address]- 0172 Feb, [facility] [place] [facility] [address] [id number] [place] [address]- 1486 Feb, [facility] [place] [facility] [address] [id number] [place] [address]- 0886 Feb, [facility] [place] [facility] [address] [id number] [place] [address]- 7562 Feb, [facility] [place] [facility] [address] [id number] [place] [address]- 4800 Feb, [facility] [place] [facility] [address] [id number] [place] [address]- 9459 Jan, [facility] [place] [facility] [address] [id number] [place] [address]- 6121 Jan, [facility] [place] [facility] [address] [id number] [place] [address]- 4651 Jan, [facility] [place] [facility] [address] [id number] [place] [address]- 0982 Jan, [facility] [place] [facility] [address] [id number] [place] [address]- 6035 Jan, [facility] [place] [facility] [address] [id number] [place] [address]- 2840 Jan, [facility] [place] [facility] [address] [id number] [place] [address]- 5328 Jan, [facility] [place] [facility] [address] [id number] [place] [address]- 9859 Jan, [facility] [place] [facility] [address] [id number] [place] [address]- 2528 Jan, [facility] [place] [facility] [address] [id number] [place] [address]- 3486 Jan, [facility] [place] [facility] [address] [id number] [place] [address]- 7676 Jan, [facility] [place] [facility] [address] [id number] [place] [address]- 0319 Dec, [facility] [place] [facility] [address] [id number] [place] [address]- 6581 Dec, [facility] [place] [facility] [address] [id number] [place] [address]- 3658 Nov, [facility] [place] [facility] [address] [id number] [place] [address]- 6335 Nov, [facility] [place] [facility] [address] [id number] [place] [address]- 6956 Nov, [facility] [place] [facility] [address] [id number] [place] [address]- 9002 Nov, [facility] [place] [facility] [address] [id number] [place] [address]- 2714 Nov, [facility] [place] [facility] [address] [id number] [place] [address]- 3719 Nov, [facility] [place] [facility] [address] [id number] [place] [address]- 0919 Nov, [facility] [place] [facility] [address] [id number] [place] [address]- 9275 Oct, [facility] [place] [facility] [address] [id number] [place] [address]- 5493 Oct, [facility] [place] [facility] [address] [id number] [place] [address]- 9570 07 Oct, 2013 [facility] [place] [facility] [address] [id number] [place] [address]- 7653 Oct, [facility] [place] [facility] [address] [id number] [place] [address]- 4071 Sep, [facility] [place] [facility] [address] [id number] [place] [address]- 1739 Sep, [facility] [place] [facility] [address] [id number] [place] [address]- 9523 Sep, [facility] [place] [facility] [address] [id number] [place] [address]- 4958 Sep, [facility] [place] [facility] [address] [id number] [place] [address]- 1842 Sep, [facility] [place] [facility] [address] [id number] [place] [address]- 0160 Sep, [facility] [place] [facility] [address] [id number] [place] [address]- 7756 Sep, [facility] [place] [facility] [address] [id number] [place] [address]- 7985 Sep, [facility] [place] [facility] [address] [id number] [place] [address]- 9539 Sep, [facility] [place] [facility] [address] [id number] [place] [address]- 0829 Sep, [facility] [place] [facility] [address] [id number] [place] [address]- 9508 Sep, [facility] [place] [facility] [address] [id number] [place] [address]- 0124 Sep, [facility] [place] [facility] [address] [id number] [place] [address]- 6829 Sep, [facility] [place] [facility] [address] [id number] [place] [address]- 3270 Sep, [facility] [place] [facility] [address] [id number] [place] [address]- 8950 August, [facility] [address] [id number] [place] [address]- 6279 August, [facility] [address] [id number] [place] [address]- 9636 August, [facility] [address] [id number] [place] [address]- 2514 August, [facility] [address] [id number] [place] [address]- 7570 August, [facility] [address] [id number] [place] [address]- 1660 August, [facility] [address] [id number] [place] [address]- 3617 August, [facility] [address] [id number] [place] [address]- 4671 August, [facility] [address] [id number] [place] [address]- 7791 August, [facility] [address] [id number] [place] [address]- 2189 August, [facility] [address] [id number] [place] [address]- 2023 August, [facility] [address] [id number] [place] [address]- 3160 August, [facility] [address] [id number] [place] [address]- 0772 August, [facility] [place] [facility] [address] [id number] [place] [address]- 1996 August, [facility] [address] [id number] [place] [address]- 6726 August, [facility] [address] [id number] [place] [address]- 4671 August, [facility] [place] [facility] [address] [id number] [place] [address]- 0137 August, [facility] [place] [facility] [address] [id number] [place] [address]- 5591 August, [facility] [place] [facility] [address] [id number] [place] [address]- 3216 August, [facility] [place] [facility] [address] [id number] [place] [address]- 9300 Jul, [facility] [place] [facility] [address] [id number] [place] [address]- 7122 Jul, [facility] [place] [facility] [address] [id number] [place] [address]- 8275 Jul, [facility] [place] [facility] [address] [id number] [place] [address]- 7391 Jul, [facility] [place] [facility] [address] [id number] [place] [address]- 7702 Jun, [facility] [place] [facility] [address] [id number] [place] [address]- 5658 Jun, [facility] [place] [facility] [address] [id number] [place] [address]- 0616 Jun, [facility] [place] [facility] [address] [id number] [place] [address]- 6012 24 Jun, 2013 [facility] [place] [facility] [address] [id number] [place] [address]- 8145 Jun, [facility] [place] [facility] [address] [id number] [place] [address]- 0258 Jun, [facility] [place] [facility] [address] [id number] [place] [address]- 5969 Jun, [facility] [place] [facility] [address] [id number] [place] [address]- 4389 Jun, [facility] [place] [facility] [address] [id number] [place] [address]- 4337 Jun, [facility] [place] [facility] [address] [id number] [place] [address]- 7559 Jun, [facility] [place] [facility] [address] [id number] [place] [address]- 2838 May, [facility] [place] [facility] [address] [id number] [place] [address]- 5491 May, [facility] [place] [facility] [address] [id number] [place] [address]- 9624 May, [facility] [place] [facility] [address] [id number] [place] [address]- 0528 May, [facility] [place] [facility] [address] [id number] [place] [address]- 6844 May, [facility] [place] [facility] [address] [id number] [place] [address]- 6682 May, [facility] [place] [facility] [address] [id number] [place] [address]- 2296 20 May, 2013 [facility] [place] [facility] [address] [facility] [id number] [place] [address]- 6014 May, [facility] [place] [facility] [address] [facility] [id number] [place] [address]- 1287 May, [facility] [place] [facility] [address] [facility] [id number] [place] [address]- 9024 18 May, 2013 [facility] [place] [facility] [address] [id number] [place] [address]- 1729 18 May, 2013 [facility] [place] [facility] [address] [id number] [place] [address]- 2886 17 May, 2013 [facility] [place] [facility] [address] [id number] [place] [address]- 4057 11 May, 2013 [facility] [place] [facility] [address] [facility] [id number] [place] [address]- 5129 May, [facility] [place] [facility] [address] [id number] [place] [address]- 6636 May, [facility] [place] [facility] [address] [id number] [place] [address]- 6095 07 May, 2013 [facility] [place] [facility] [address] [id number] [place] [address]- 9118 May, [facility] [place] [facility] [address] [id number] [place] [address]- 9695 Apr, [facility] [place] [facility] [address] [id number] [place] [address]- 0649 Apr, [facility] [place] [facility] [address] [id number] [place] [address]- 0667 Apr, [facility] [place] [facility] [address] [id number] [place] [address]- 9064 Apr, [facility] [place] [facility] [address] [id number] [place] [address]- 0839 Apr, [facility] [place] [facility] [address] [id number] [place] [address]- 1142 Apr, [facility] [place] [facility] [address] [id number] [place] [address]- 9865 Apr, [facility] [place] [facility] [address] [id number], [place] [address]- 3344 Mar, [facility] [place] [facility] [address] [id number] [place] [address]- 0589 Mar, [facility] [place] [facility] [address] [id number] [place] [address]- 8500 Mar, [facility] [place] [facility] [address] [id number] [place] [address]- 2731 Mar, [facility] [place] [facility] [address] [id number] [place] [address]- 4486 Mar, [facility] [place] [facility] [address] [id number] [place] [address]- 9043 09 Mar, 2013 [facility] [address] [id number] [place] [address]- 7523 Mar, [facility] [place] [facility] [address] [id number] [place] [address]- 6275 Mar, [facility] [address] [id number] [place] [address]- 7421 Mar, [facility] [place] [facility] [address] [id number] [place] [address]- 0019 Mar, [facility] [address] [id number] [place] [address]99 Mar, [facility] [address] [id number] [place] [address]- 4779 Feb, [facility] [address] [id number] [place] [address]- 7390 Feb, [facility] [address] [id number] [place] [address]- 3580 Feb, [facility] [address] [id number] [place] [address]- 3653 Feb, [facility] [address] [id number] [place] [address]- 9831 Feb, [facility] [place] [facility] [address] [id number] [place] [address]- 9660 19 Feb, 2013 [facility] [address] [id number] [place] [address]- 3145 15 Feb, 2013 [facility] [place] [facility] [address] [id number] [place] [address]- 4511 14 Feb, 2013 [facility] [place] [facility] [address] [id number] [place] [address]- 3641 14 Feb, 2013 [facility] [place] [facility] [address] [id number] [place] [address]- 3038 Feb, [facility] [place] [facility] [address] [id number] [place] [address]- 4956 Feb, [facility] [place] [facility] [address] [id number] [place] [address]- 8538 Feb, [facility] [place] [facility] [address] [id number] [place] [address]- 1236 Feb, [facility] [place] [facility] [address] [id number] [place] [address]- 1409 Feb, [facility] [place] [facility] [address] [id number] [place] [address]- 6437 Feb, [facility] [place] [facility] [address] [id number] [place] [address]- 1574 Feb, [facility] [place] [facility] [address] [id number] [place] [address]- 8818 Jan, [facility] [place] [facility] [address] [id number], [place] [address]- 4683 Jan, [facility] [place] [facility] [address] [id number] [place] [address]- 0924 Jan, [facility] [place] [facility] [address] [id number], [place] [address]- 3788 Jan, [facility] [place] [facility] [address] [id number], [place] [address]- 9506 Jan, [facility] [place] [facility] [address] [id number], [place] [address]- 1682 Jan, [facility] [place] [facility] [address] [id number] [place] [address]- 0262 Jan, [facility] [place] [facility] [address] [id number], [place] [address]- 9157 Jan, [facility] [place] [facility] [address] [id number], [place] [address]- 0661 Jan, [facility] [place] [facility] [address] [id number] [place] [address]- 7360 27 Dec, 2012 [facility] [place] [facility] [address] [id number] [place] [address]- 8463 20 Dec, 2012 [facility] [place] [facility] [address] [id number] [place] [address]- 1506 19 Dec, 2012 [facility] [place] [facility] [address] [id number] [place] [address]- 5046 10 Dec, 2012 [facility] [place] [facility] [address] [id number] [place] [address]- 8830 04 Dec, 2012 [facility] [place] [facility] [address] [id number] [place] [address]- 1672 03 Dec, 2012 [facility] [place] [facility] [address] [id number] [place] [address]- 0457 Nov, [facility] [place] [facility] [address] [id number] [place] [address]- 7741 Nov, [facility] [place] [facility] [address] [id number] [place] [address]- 1634 Nov, [facility] [place] [facility] [address] [id number] [place] [address]- 8538 Nov, [facility] [place] [facility] [address] [id number] [place] [address]- 3735 Nov, [facility] [place] [facility] [address] [id number] [place] [address]- 8491 Nov, [facility] [place] [facility] [address] [id number] [place] [address]- 2548 Nov, [facility] [place] [facility] [address] [id number] [place] [address]- 3324 Nov, [facility] [place] [facility] [address] [id number] [place] [address]- 2572 14 Nov, 2012 [facility] [place] [facility] [address] [id number] [place] [address]- 7236 Nov, [facility] [place] [facility] [address] [id number] [place] [address]- 6798 17 Oct, 2012 [facility] [place] [facility] [address] [id number] [place] [address]- 1515 Oct, 2012 [facility] [place] [facility] [address] [id number] [place] [address] 2548 Oct, 2012 [facility] [place] [facility] [address] [id number] [place] [address]- 5174 Oct, 2012 [facility] [place] [facility] [address] [id number] [place] [address]- 4169 Oct, 2012 [facility] [place] [facility] [address] [id number] [place] [address]- 7113 Oct, [facility] [place] [facility] [address] [id number] [place] [address]- 5061 Oct, [facility] [place] [facility] [address] [id number] [place] [address]- 3555 Oct, [facility] [place] [facility] [address] [id number] [place] [address]- 4500 Sep, [facility] [place] [facility] [address] [id number] [place] [address]- 7862 Sep, [facility] [place] [facility] [address] [id number] [place] [address]- 5960 Sep, [facility] [place] [facility] [address] [id number] [place] [address]- 3296 Sep, [facility] [place] [facility] [address] [id number] [place] [address]- 2016 Sep, [facility] [place] [facility] [address] [id number] [place] [address]- 9723 Sep, [facility] [place] [facility] [address] [id number] [place] [address]- 3317 05 Sep, 2012 [facility] [place] [facility] [address] [id number] [place] [address]- 7636 Sep, [facility] [address] [id number] [place] [address]- 5753 August, [facility] [address] [id number] [place] [address]- 0696 August, [facility] [address] [id number] [place] [address]- 1252 August, [facility] [address] [id number] [place] [address]- 9712 August, [facility] [address] [id number] [place] [address]- 4255 August, [facility] [address] [id number] [place] [address]- 0860 Jul, [facility] [address] [id number] [place] [address]- 4830 Jul, [facility] [address] [id number] [place] [address]- 7778 Jul, [facility] [address] [id number] [place] [address]- 4017 Jul, [facility] [address] [id number] [place] [address]- 3409 Jul, [facility] [address] [id number] [place] [address]- 0181 18 Jun, 2012 [facility] [place] [facility] [address] [id number], [place] [address]- 2861 18 Jun, 2012 [facility] [place] [facility] [address] [id number] [place] [address]- 8320 15 Jun, 2012 [facility] [place] [facility] [address] [id number] [place] [address]- 7735 14 Jun, 2012 [facility] [place] [facility] [address] [id number] [place] [address]- 1377 12 Jun, 2012 [facility] [place] [facility] [address] [id number] [place] [address]- 5684 08 Jun, 2012 [facility] [address] [id number] [place] [address]- 4408 Jun, [facility] [place] [facility] [address] [id number] [place] [address] Jun, [facility] [address] [id number] [place] [address] Jun, [facility] [address] [id number] [place] [address] May, [facility] [address] [id number] [place] [address] May, [facility] [address] [id number] [place] [address] May, [facility] [address] [id number] [place] [address]279 May, [facility] [address] [id number] [place] [address] Apr, [facility] [address] [id number] [place] [address] Apr, [facility] [address] [id number] [place] [address] 5980 Apr, [facility] [address] [id number] [place] [address]165 Apr, [facility] [address] [id number] [place] [address] 8971 Apr, [facility] [place] [facility] [address] [id number] [place] [address] Apr, [facility] [place] [facility] [address] [id number] [place] [address] 2026 Apr, [facility] [place] [facility] [address] [id number] [place] [address] Mar, [facility] [address] [place] [id number] Mar, [facility] [address] [id number] [place] [address] Mar, [facility] [address] [id number] [place] [address] 235[address] Mar, [facility] [address] [id number] [place] [address] 6476 Mar, [facility] [address] [id number] [place] [address] 0898 Mar, [facility] [address] [id number] [place] [address] 2060 Mar, [facility] [address] [id number] [place] [address] 4321 Mar, [facility] [address] [id number] [place] [address]- [address]23 Mar, [facility] [address] [id number] [place] [address] 3218 Mar, [facility] [address] [id number] [place] [address]107 Mar, [facility] [address] [id number] [place] [address] 2770 Mar, [facility] [address] [id number] [place] [address] 3432 Mar, [facility] [address] [id number] [place] [address] 6387 Mar, [facility] [address] [id number] [place] [address] 9252 Mar, [facility] [address] [id number] [place] [address] 5510 Mar, [facility] [address] [id number], [place] [address] Mar, [facility] [place] [facility] [address] [id number] [place] [address]- 7362 Feb, [facility] [place] [facility] [address] [id number] [place] [address] 0194 Feb, [facility] [place] [facility] [address] [id number] [place] [address] 9355 Feb, [facility] [place] [facility] [address] [id number], [place] [address] Feb, [facility] [place] [facility] [address] [id number] [place] [address] 1088 Feb, [facility] [place] [facility] [address] [id number] [place] [address]- 1023 Feb, [facility] [place] [facility] [address] [id number], [place] [address] Feb, [facility] [place] [facility] [address] [id number], [place] [address] Feb, [facility] [place] [facility] [address] [id number], [place] [address]285 Feb, [facility] [place] [facility] [address] [id number], [place] [address] 1684 Feb, [facility] [place] [facility] [address] [id number], [place] [address] Feb, [facility] [place] [facility] [address] [id number], [place] [address]- [address] Feb, [facility] [place] [facility] [address] [id number], [place] [address]- 4[address] Feb, [facility] [place] [facility] [address] [id number], [place] [address] Feb, [facility] [place] [facility] [address] [id number], [place] [address]- 67[address] Feb, [facility] [place] [facility] [address] [id number] [place] [address]- 5513 Feb, [facility] [place] [facility] [address] [id number] [place] [address]- 2247 Jan, [facility] [place] [facility] [address] [id number] [place] [address] 9651 Jan, [facility] [place] [facility] [address] [id number] [place] [address]- 0604 Jan, [facility] [place] [facility] [address] [id number] [place] [address]- 0025 Jan, [facility] [place] [facility] [address] [id number] [place] [address]- 9570 Jan, [facility] [place] [facility] [address] [id number] [place] [address]- 4799 Jan, [facility] [place] [facility] [address] [id number] [place] [address]- 7518 Jan, [facility] [place] [facility] [address] [id number] [place] [address]- 9809 Jan, [facility] [place] [facility] [address] [facility] [id number] [place] [address]- 7987 Jan, [facility] [place] [facility] [address] [facility] [id number] [place] [address]- 7365 Jan, [facility] [place] [facility] [address] [id number] [place] [address]- 6350 Jan, [facility] [place] [facility] [address] [id number] [place] [address]- 7689 Jan, [facility] [place] [facility] [address] [id number] [place] [address]- 8464 Jan, [facility] [place] [facility] [address] [facility] [id number] [place] [address] Jan, [facility] [place] [facility] [address] [facility] [id number] [place] [address]- 8062 Jan, [facility] [place] [facility] [address] [id number] [place] [address]- 4498 05 Jan, 2012 [facility] [place] [facility] [address] [id number] [place] [address]- 1126 04 Jan, 2012 [facility] [place] [facility] [address] [id number] [place] [address]- 3836 21 Dec, 2011 [facility] [place] [facility] [address] [id number] [place] [address]- 7236 20 Dec, 2011 [facility] [place] [facility] [address] [id number] [place] [address]- 7176 18 Dec, 2011 [facility] [place] [facility] [address] [id number] [place] [address]- 8306 18 Dec, 2011 [facility] [place] [facility] [address] [id number] [place] [address]- 4816 10 Dec, 2011 [facility] [place] [facility] [address] [id number] [place] [address]- 6465 10 Dec, 2011 [facility] [place] [facility] [address] [id number] [place] [address]- 1393 10 Dec, 2011 [facility] [place] [facility] [address] [id number] [place] [address]- 5556 07 Dec, 2011 [facility] [place] [facility] [address] [id number] [place] [address] 30 Nov, 2011 [facility] [place] [facility] [address] [id number], [place] [address] Nov, [facility] [place] [facility] [address] [id number] [place] [address] Nov, [facility] [place] [facility] [address] [id number] [place] [address] Nov, [facility] [place] [facility] [address] [id number], [place] [address] Nov, [facility] [place] [facility] [address] [id number], [place] [address] Nov, [facility] [place] [facility] [address] [id number] [place] [address] Oct, [facility] [place] [facility] [address] [id number] [place] [address] Oct, [facility] [place] [facility] [address] [id number] [place] [address] Oct, [facility] [place] [facility] [address] [id number] [place] [address]27 Oct, [facility] [place] [facility] [address] [id number] [place] [address] Oct, [facility] [place] [facility] [address] [id number] [place] [address] Oct, [facility] [place] [facility] [address] [id number] [place] [address] 47[address] Oct, [facility] [place] [facility] [address] [id number] [place] [address] Sep, [facility] [place] [facility] [address] [id number] [place] [address] Sep, [facility] [place] [facility] [address] [id number] [place] [address] 8068 Sep, [facility] [place] [facility] [address] [id number] [place] [address] Sep, [facility] [place] [facility] [address] [id number] [place] [address]36 19 Sep, 2011 [facility] [place] [facility] [address] [id number] [place] [address] 15 Sep, 2011 [facility] [place] [facility] [address] [id number] [place] [address] 14 Sep, 2011 [facility] [place] [facility] [address] [facility] [id number] [place] [address]166 11 Sep, 2011 [facility] [place] [facility] [address] [id number] [place] [address]1 Sep, [facility] [address] [id number] [place] [address] 48[address] Sep, [facility] [place] [facility] [address] [id number] [place] [address]26 August, [facility] [address] [id number] [place] [address] August, [facility] [place] [facility] [address] [id number] [place] [address] August, [facility] [address] [id number] [place] [address] August, [facility] [place] [facility] [address] [id number] [place] [address] August, [facility] [address] [id number] [place] [address] Jul, [facility] [address] [id number] [place] [address] 1182 Jul, [facility] [place] [facility] [address] [id number] [place] [address] 7715 Jul, [facility] [place] [facility] [address] [id number] [place] [address] 9163 Jul, [facility] [place] [facility] [address] [id number] [place] [address] Jul, [facility] [place] [facility] [address] [id number] [place] [address] 6657 Jul, [facility] [place] [facility] [address] [id number] [place] [address] 89[address] Jul, [facility] [place] [facility] [address] [id number] [place] [address]286 Jun, [facility] [place] [facility] [address] [id number] [place] [address] 3024 Jun, [facility] [place] [facility] [address] [id number] [place] [address]507 Jun, [facility] [place] [facility] [address] [id number] [place] [address] Jun, [facility] [place] [facility] [address] [id number] [place] [address]59 Jun, [facility] [place] [facility] [address] [id number] [place] [address] 69[address] May, [facility] [place] [facility] [address] [id number] [place] [address] 4181 May, [facility] [place] [facility] [address] [id number] [place] [address] 5240 May, [facility] [place] [facility] [address] [id number] [place] [address]- 6612 May, [facility] [place] [facility] [address] [id number] [place] [address] 9502 May, [facility] [place] [facility] [address] [id number] [place] [address] 8100 May, [facility] [place] [facility] [address] [id number] [place] [address]- 2069 Apr, [facility] [place] [facility] [address] [id number] [place] [address] 3075 Mar, [facility] [place] [facility] [address] [id number] [place] [address] 5213 Feb, [facility] [place] [facility] [address] [id number] [place] [address] 9138 Feb, [facility] [place] [facility] [address] [id number] [place] [address] 3814 Feb, [facility] [place] [facility] [address] [id number] [place] [address] 8102 Feb, [facility] [place] [facility] [address] [id number] [place] [address] 2416 31 Jan, 2011 [facility] [address] [id number] [place] [address] 27 Jan, 2011 [facility] [place] [facility] [address] [id number] [place] [address]- 5836 26 Jan, 2011 [facility] [address] [id number] [place] [address]- 4085 24 Jan, 2011 [facility] [address] [id number] [place] [address]- 0184 14 Jan, 2011 [facility] [address] [id number] [place] [address] 0422 Dec, [facility] [address] [id number] [place] [address]- 4193 Oct, [facility] [address] [id number] [place] [address]- 5182 August, [facility] [address] [id number] [place] [address] 8020 29 Mar, 2010 [facility] [address] [id number] [place] [address]- 9352 27 Mar, 2010 [facility] [address] [id number] [place] [address] 3015 16 Mar, 2010 [facility] [place] [facility] [address] [id number] [place] [address] 2549 15 Mar, 2010 [facility] [address] [id number] [place] [address] 254 15 Mar, 2010 [facility] [place] [facility] [address] [id number] [place] [address] 2547 08 Mar, 2010 [facility] [place] [facility] [address] [id number] [place] [address] 2546 03 Mar, 2010 [facility] [place] [facility] [address] [id number] [place] [address]- 8914 Feb, [facility] [place] [facility] [address] [id number] [place] [address]- 5747 24 Feb, 2010 [facility] [place] [facility] [address] [id number] [place] [address]- 8121 15 Feb, 2010 [facility] [place] [facility] [address] [id number] [place] [address]- 2727 19 Jan, 2010 [facility] [place] [facility] [address] [id number] [place] [address]- 0781 Jan, [facility] [place] [facility] [address] [id number] [place] [address]- 9094 Jan, [facility] [place] [facility] [address] [id number] [place] [address]- 9006 Nov, [facility] [place] [facility] [address] [id number] [place] [address]- 5138 Sep, [facility] [place] [facility] [address] [id number], [place] [address] 98[address] August, [facility] [place] [facility] [address] [id number] [place] [address]- 5720 30 Mar, 2009 [facility] [place] [facility] [address] [id number], [place] [address] 2842 07 Mar, 2009 [facility] [place] [facility] [address] [id number], [place] [address] 5751 17 Feb, 2009 [facility] [place] [facility] [address] [id number], [place] [address]- 1192 10 Feb, 2009 [facility] [place] [facility] [address] [id number] [place] [address]- 8452 10 Feb, 2009 [facility] [place] [facility] [address] [id number], [place] [address]- 0565 10 Feb, 2009 [facility] [place] [facility] [address] [id number], [place] [address]- 6181 06 Feb, 2009 [facility] [place] [facility] [address] [id number], [place] [address]- 79[address] Jan, [facility] [address], [place] [address] Jan, [facility] [address], [place] [address] 3636 Jan, [facility] [address] [id number], [place] [address] Jan, [facility] [id number] [place] [address]- 2480 Nov, [facility] [id number] [place] [address]- 0265 Sep, [facility] [id number] [place] [address]- 7564 August, [facility] [id number] [place] [address]- 0448 Jul, [facility] [address], [place] [address]9 May, IMMUNIZATIONS No Known Immunizations SOCIAL HISTORY Never Assessed REASON FOR VISIT Psychiatric f/u PLAN OF CARE Activity Details Follow Up 3 Months, prn Reason: VITAL SIGNS Height 64 in 2017-07-29 Weight 155.5 lbs 2017-07-29 Heart Rate 88 bpm 2017-07-29 Respiratory Rate 20 2017-07-29 BMI 26.69 kg/m2 2017-07-29 Blood pressure systolic 108 mmHg 2017-07-29 Blood pressure diastolic 62 mmHg 2017-07-29 MEDICATIONS Medication Instructions Dosage Frequency Start Date End Date Duration Status Toprol XL 25 MG Orally Once a day 1 tablet 24h Active Baclofen 20 MG TAKE ONE TABLET BY MOUTH THREE TIMES DAILY WITH FOOD OR MILK 30 Active Carafate 1 GM Orally 4 times a day 1 tablet 6h Active Fluticasone Propionate 50 MCG/ACT Nasally 2 times a day 2 sprays in each nostril 12h 30 days Active Spiriva HandiHaler 18 MCG Inhalation Once a day 1 capsule 24h Active Diltiazem HCl ER 240 MG Orally Once a day 1 capsule 24h Active Oxycodone-Acetaminophen 325-5 MG Orally every 4 hrs 1 tablet as needed Active Ropinirole HCl 2 MG TAKE 1 TABLET ONE TIME DAILY AT BEDTIME 90 Active Oxygen 5 inhalation all the time Active Tramadol HCl 50 MG Orally every 4 hrs 1 tablet as needed 4h Not- Taking Lomotil 2.5-0.025 mg Orally Four times a day TWO TABLETS 6h 30 Active Magnesium Active Benefiber - Active Nitroglycerin 0.4 MG Active Gabapentin 600 MG TAKE 1 TABLET THREE TIMES DAILY 90 Active Hydrocodone-Acetaminophen 5-325 MG Orally every 6 hrs 1 tablet as needed 6h 20 Jun, 2017 Not-Taking Symbicort 160-4.5 MCG/ACT INHALE 2 PUFFS TWICE DAILY, IN THE MORNING AND IN THE EVENING 90 Active Namenda 10 MG TAKE 1 TABLET EVERY DAY Active Oxybutynin Chloride 5 mg Orally Twice a day 1 tablet 12h Jul, 30 day(s) Active Alendronate Sodium 70 MG TAKE 1 TABLET EVERY WEEK Active Calcium Active Albuterol Sulfate 2.5 mg /3 mL (0.083 %) 1 Each by Inhalation route every 4 hours for cough and wheeze PRN for wheezing or cough Jun, Not-Taking Remeron 45 MG Orally Once a day at bedtime 1 tablet Feb, Active Eliquis 5 MG Orally 2 times a day 12h Active Glucometer 1 test blood sugar Jul, Active Lyrica 75 MG Orally 4 times a day 1 capsule 6h Jun, Active Welchol 625 MG Orally twice a day 2 tablets 12h Active Zofran ODT 4 mg Orally every 4 hrs 1 tablet on the tongue and allow to dissolve 4h Jul, 1 days Active Singulair 10 MG TAKE 1 TABLET ONE TIME DAILY 90 Active Melatonin 5 MG Orally Once a day 1 tablet at bedtime as needed with food 24h Jun, 30 day(s) Not-Taking HydrALAZINE HCl 25 MG TAKE 1 TABLET THREE TIMES DAILY 90 Not- Taking Lamictal 25 MG Orally every night 3 tablets Apr, Active Farxiga 5 mg Orally Once a day 1 tablet 24h Jul, Oct, 30 day(s) Active Cetirizine HCl 10 MG Orally Once a day 1 tablet as needed 24h Not- Taking Xifaxan 550 MG Orally Three times a day 1 tablet 8h Active Abilify 10 MG Orally Once a day 1 tablet 24h Active Omeprazole 40 mg Orally Once a day 1 capsule 24h Active Ventolin HFA 108 (90 Base) MCG/ACT INHALE 2 PUFFS EVERY 4 HOURS NEEDED 16 Active Mupirocin 2 % Externally two times a day 1 application to affected area 12h Active Vitamin D 50,000 Orally once a week 1 tablet Active Pantoprazole Sodium 40 MG Orally 2 times a day 1 tablet 12h Active RESULTS No Results PROCEDURES Procedure Date Ordered Result Body Site [facility] VISIT ESTABLISHED PATIENT July 29, 2017 INSTRUCTIONS MEDICATIONS ADMINISTERED No Known Medications [...] Knee Surgery 07/16/17 Hospitalization History [facility] [place]- left hand/wrist swelling 10/09/2017
--- OUTSIDE RECORDS SUMMARY | 2018-01-01 12:06 | XMS REPORT ---
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 Role Phone SENAIT DUNLAP Unavailable PROBLEMS Type Condition ICD9-CM Code YTP53-[place] Code Onset Dates Condition Status SNOMED Code Problem History of common bile duct surgery Z98.89 Active 404729384 Problem Barretts esophagus K22.70 Active 834809485 Problem 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 Active 07073498 Problem Colon polyp K63.5 Active 52108087 Problem Bilateral low back pain without sciatica M54.5 Active 004844768 Problem Screening breast examination Z12.39 Active 943470158 Problem Postmenopausal Z78.0 Active 48776912 Problem Osteopenia M85.80 Active 888379295 Problem Cigarette nicotine dependence without complication F17.210 Active 44487210 Problem Type 2 diabetes mellitus with diabetic peripheral angiopathy without gangrene E11.51 Active 933033389 Problem Vascular dementia without behavioral disturbance F01.50 Active [id number] Problem Unspecified atherosclerosis of [place] arteries of extremities, unspecified extremity I70.209 Active 372292974291920 Problem Arthritis M19.90 Active 1062169 Problem Chronic atrial fibrillation I48.2 Active 310272132 Problem Chronic obstructive pulmonary disease with acute lower respiratory infection J44.0 Active 206006001 Problem Other chronic pancreatitis K86.1 Active 547252268 Problem Stress incontinence of urine N39.3 Active 98776614 Problem Controlled type 2 diabetes mellitus without complication, without long -term current use of insulin E11.9 Active 967344556 Problem Unspecified psychosis F29 Active 68351000 Problem Xeroderma Q80.9 Active 59083117 Problem COPD (chronic obstructive pulmonary disease) J44.9 Active 49111294 Problem Dementia without behavioral disturbance, unspecified dementia type F03.90 Active 34255708 Problem Gastroparesis K31.84 Active 733065448 Problem Type 2 diabetes mellitus with diabetic neuropathy, without long-term current use of insulin E11.40 Active 56929294 Problem Osteoporosis M81.0 Active 84521710 Problem Atherosclerosis of [place] artery of both lower extremities with intermittent claudication I70.213 Active 284431391700888 Problem Hyperlipidemia E78.5 Active 97658946 Problem Diabetic polyneuropathy associated with type 2 diabetes mellitus E11.42 Active 58011453 Problem Essential tremor G25.0 Active 85403434 Problem 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.118 Active 8079084227081 Problem Generalized anxiety disorder F41.1 Active 579422238 Problem Gastroesophageal reflux disease, esophagitis presence not specified K21.9 Active 993149934 Problem Coronary artery disease involving [place] coronary artery of [place] 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 I25.118 Active 5437780897159 Problem Postconcussion syndrome F07.81 Active 69805022 Problem Chronic pain syndrome G89.4 Active 738179457 Problem Migraine without aura and without status migrainosus, not intractable G43.009 Active 251758879 Problem Paroxysmal atrial fibrillation I48.0 Active 127108476 Problem Migraine without aura and with status migrainosus, not intractable G43.001 Active 021059987 Problem Cervicalgia M54.2 Active 5565515599484 Problem Acute exacerbation of chronic obstructive pulmonary disease (COPD) J44.1 Active 285506879 Problem Major depressive disorder, recurrent episode, moderate F33.1 Active 456479122 Problem Crohn''s disease without complication, unspecified gastrointestinal tract location K50.90 Active 71887707 Problem Chronic fatigue R53.82 Active 68754385 Problem Bipolar affective disorder, currently depressed, moderate F31.32 Active 230580128 ALLERGIES No Information ENCOUNTERS Encounter Location Date Diagnosis [id number] [facility] [id number] [address] Nov, [facility] [id number] [address] Nov, [address] [address] [id number] [address] Oct, [facility] [id number] [address] Oct, Bipolar affective disorder, currently depressed, moderate F31.32 ; Vascular dementia without behavioral disturbance F01.50 and Generalized anxiety disorder F41.1 [facility] [id number] [place] [address] 23006- 1428 Oct, [facility] [id number] [place] [address] 32930- 8749 Oct, [facility] [id number] [place] [address] 37526- 4775 Oct, Edema of both legs R60.0 [facility] [id number] [place] [address] 08805- 2786 Oct, [facility] [id number] [place] [address] 74805- 3170 Sep, [facility] [id number] [place] [address] 25534- 3166 Sep, [facility] [id number] [place] [address] 14633- 4103 Sep, [facility] [id number] [place] [address] 56630- 2870 Sep, Encounter for well woman exam with routine gynecological exam Z01.419 ; Screening for STDs (sexually transmitted diseases) Z11.3 ; Screening breast examination Z12.31 and Overweight (BMI 25.0-29.9) E66.3 [facility] [address] [address] Sep, [facility] [id number] [address] Sep, [facility] [id number] [place] [address] 75781- 8311 Sep, [facility] [id number] [place] [address] 14975- 5362 August, [facility] [id number] [address] August, [facility] [id number] [address] August, Type 2 diabetes mellitus with diabetic neuropathy, without long-term current use of insulin E11.40 and Sprain of right ankle, unspecified ligament, initial encounter S93.401A [facility] [id number] [address] August, [facility] [id number] [place] [address] 49783- 8471 August, [facility] [id number] [place] [address] 11859- 3876 August, [facility] [id number] [place] [address] 64415- 2632 August, Gastroesophageal reflux disease, esophagitis presence not specified K21.9 [facility] [id number] [place] [address] 93693- 2363 August, [facility] [id number] [place] [address] 06530- 8731 August, [facility] [id number] [place] [address] 28098- 5546 August, [facility] [id number] [place] [address] 18313- 6939 August, Type 2 diabetes mellitus with diabetic neuropathy, without long-term current use of insulin E11.40 and Elevated liver enzymes R74.8 [facility] [address] [place] [address] 22886- 7288 Jul, [facility] [id number] [place] [address] 25697- 7410 Jul, Cough R05 [facility] [id number] [place] [address] 71462- 7474 Jul, [facility] [address], [place] [address] 2157 Jul, [facility] [id number] [place] [address] 51344- 6993 Jul, Bipolar affective disorder, currently depressed, moderate F31.32 ; Vascular dementia without behavioral disturbance F01.50 and Generalized anxiety disorder F41.1 [facility] [id number] [place] [address] 12675- 1353 Jul, [facility] [address] 48134- 1801 Jul, Type 2 diabetes mellitus with diabetic neuropathy, without long-term current use of insulin E11.40 and Elevated liver enzymes R74.8 [facility] [address] 97625- 2482 Jul, [facility] [id number] [place] [address] 41273- 1288 Jul, [facility] [id number] [place] [address] 92108- 8031 Jul, [facility] [id number] [place] [address] 89488- 3823 Jul, Post-menopausal Z78.0 [facility] [address] 04817- 1839 Jul, Stress incontinence of urine N39.3 [facility] [id number] [place] [address] 55128- 5592 Jul, [facility] [id number] [place] [address] 47281- 8954 Jul, [facility] [id number] [place] [address] 89387- 2984 Jul, Stress incontinence of urine N39.3 and Cough R05 [facility] [id number] [place] [address] 94305- 3263 Jul, [facility] [id number] [place] [address] 23995- 8678 Jul, [facility] [id number] [place] [address] 10233- 3546 Jul, [facility] [id number] [place] [address] 18894- 4739 Jul, Gastroesophageal reflux disease, esophagitis presence not specified K21.9 [facility] [address] [place] [address] 03964- 5175 Jun, Diabetic polyneuropathy associated with type 2 diabetes mellitus E11.42 [facility] [id number] [place] [address] 46030- 8789 Jun, Diabetic polyneuropathy associated with type 2 diabetes mellitus E11.42 ; Coronary artery disease involving [place] coronary artery of [place] 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 I25.118 and Paroxysmal atrial fibrillation I48.0 [place] [id number] [place] [address] 00431- 0675 Jun, [place] [id number] [place] [address] 43898- 1490 Jun, [facility] [id number] [place] [address] 85570 2549 Jun, Gastroenteritis K52.9 [facility] [id number] [place] [address] 26905 2546 Jun, Gastroenteritis K52.9 [facility] [id number] [place] [address] 74067 2548 Jun, [facility] [id number] [place] [address] 25761 2541 Jun, [facility] [id number] [place] [address] 22583- 8492 Jun, Sprain of right ankle, unspecified ligament, [...] without complication, unspecified gastrointestinal tract location K50.90 [facility] WALK IN [facility] [id number] [place] [address] 65212 -8446 17 Jun, 2017 Chronic obstructive pulmonary disease with acute lower respiratory infection J44.0 and Cough R05 [facility] [id number] [place] [address] 74652- 0867 Jun, [facility] [id number] [place] [address] 82394- 9107 Jun, Coughing R05 ; Unspecified atherosclerosis of [place] arteries of extremities, unspecified extremity I70.209 ; Type 2 diabetes mellitus with diabetic peripheral angiopathy without gangrene E11.51 ; Crohn''s disease without complication, unspecified gastrointestinal tract location K50.90 ; Other chronic pancreatitis K86.1 and Chronic atrial fibrillation I48.2 [facility] WALK IN [facility] [id number] [place] [address] 76204 -4571 Jun, [place] [id number] [place] [address] 03985- 9334 Jun, Bipolar affective disorder, currently depressed, moderate F31.32 ; Vascular dementia without behavioral disturbance F01.50 and Generalized anxiety disorder F41.1 [place] [id number] [place] [address] 91734- 9227 May, Generalized anxiety disorder F41.1 [place] [id number] [place] [address] 55533- 1706 May, [place] [id number] [place] [address] 70774- 6753 May, [place] [id number] [place] [address] 87730- 5354 15 May, 2017 Coughing R05 [place] [id number] [place] [address] 00807- 2882 09 May, 2017 [place] [id number] [place] [address] 35448- 8101 May, Bipolar affective disorder, currently depressed, moderate F31.32 ; Vascular dementia without behavioral disturbance F01.50 and Generalized anxiety disorder F41.1 [place] [id number] [place] [address] 94917- 0872 Apr, Generalized anxiety disorder F41.1 [place] [id number] [place] [address] 15984- 3341 Apr, [place] [id number] [place] [address] 22338- 6747 Apr, Vascular dementia without behavioral disturbance F01.50 ; Generalized anxiety disorder F41.1 and Bipolar affective disorder, currently depressed, moderate F31.32 [address] [id number] [place] [address] 36915- 0306 Apr, Generalized anxiety disorder F41.1 [facility] WALK IN [facility] [id number] [place] [address] 93563 -3234 Apr, Cough R05 and Acute exacerbation of chronic obstructive pulmonary disease (COPD) J44.1 [place] [id number] [place] [address] 04912- 0877 Apr, [facility] IN [facility] [id number] [place] [address] 01920 -4072 Mar, Cough R05 and Cigarette nicotine dependence without complication F17.210 [place] [id number] [place] [address] 08543- 6774 Mar, [place] [id number] [place] [address] 23052- 3226 Feb, Generalized anxiety disorder F41.1 ; Major depressive disorder, recurrent episode, moderate F33.1 ; Vascular dementia without behavioral disturbance F01.50 and Unspecified psychosis F29 [place] [id number] [place] [address] 29758- 4235 Feb, [place] [id number] [place] [address] 43552- 2703 Feb, [place] [id number] [place] [address] 50997- 8756 Feb, Generalized anxiety disorder F41.1 [place] [id number] [place] [address] 77718- 1147 Feb, Generalized anxiety disorder F41.1 [address] [place] [address] 37950- 4304 Feb, Dizziness R42 ; Chronic fatigue R53.82 ; Postconcussion syndrome F07.81 ; Fall, initial encounter W19.XXXA and Disorientation R41.0 [address] [place] [address] 38308- 6156 Feb, Postconcussion syndrome F07.81 ; Injury of head, initial encounter S09.90XA ; Fall, initial encounter W19.XXXA ; Disorientation R41.0 and Acute cystitis with hematuria N30.01 [address] [address] 44001- 1325 Jan, Gastroesophageal reflux disease, esophagitis presence not specified K21.9 ; Post-menopausal Z78.0 and Migraine without aura and without status migrainosus, not intractable G43.009 [place] [id number] [place] [address] 20591- 2861 Jan, [place] [id number] [place] [address] 26389- 7518 Jan, Generalized anxiety disorder F41.1 ; Major depressive disorder, recurrent episode, moderate F33.1 ; Vascular dementia without behavioral disturbance F01.50 and Unspecified psychosis F29 [address] [address] 54792- 4905 Jan, Pneumonia of left lower lobe due to infectious organism J18.1 [place] [id number] [place] [address] 38679- 6257 Jan, Migraine without aura and with status migrainosus, not intractable G43.001 [facility] [address], [place] [address] 04 Jan, 2017 Migraine without aura and without status migrainosus, not intractable G43.009 [facility] [address] [place] [address] 36215- 1713 19 Dec, 2016 Hematoma T14.8 [facility] [id number] [place] [address] 76263- 3975 Dec, [facility] [id number] [place] [address] 57112 -2216 Nov, Fatigue, unspecified type R53.83 [place] [id number] [place] [address] 66634- 0941 Nov, Scabies B86 and Coronary artery disease involving [place] coronary artery of [place] 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 I25.118 [place] [id number] [place] [address] 79509- 2558 Nov, [facility] [id number] [place] [address] 29662- 6429 Nov, [place] [id number] [place] [address] 22702- 4392 Oct, [place] [id number] [place] [address] 72329- 0701 Oct, Generalized anxiety disorder F41.1 and Major depressive disorder, recurrent episode, moderate F33.1 [facility] [address] [place] [address] 99526- 6876 Oct, Cramp of both lower extremities R25.2 [place] [id number] [place] [address] 57785- 7947 Oct, Leg cramps R25.2 [place] [id number] [place] [address] 95151- 7239 Oct, Chronic pain syndrome G89.4 [place] [id number], [place] [address]- 0144 17 Oct, 2016 [facility] [address] [place] [address] 16029- 1816 14 Oct, 2016 [facility] [id number] [place] [address] 69741- 5419 11 Oct, 2016 Routine gynecological examination Z01.419 and Screening for breast cancer Z12.31 [place] [id number] [place] [address] 50922- 7522 28 Sep, 2016 Diarrhea R19.7 [place] [id number] [place] [address] 39019- 4021 Sep, Back pain M54.9 [place] [id number] [place] [address] 48938- 3728 Sep, [place] [id number] [place] [address] 90085- 8200 Sep, [facility] [id number] [place] [address] 42091 -4451 August, Xeroderma Q80.9 [place] [id number] [place] [address] 58250- 2116 August, Dementia without behavioral disturbance, unspecified dementia type F03.90 [place] [id number] [place] [address] 07159- 5587 August, Chronic pain syndrome G89.4 [place] [id number] [place] [address] 19974- 8166 August, [facility] [id number] [place] [address] 63692- 6983 August, Hyperlipidemia E78.5 ; Other fatigue R53.83 and Other specified hypotension I95.89 [facility] [address] [address] August, Dysuria R30.0 ; Other fatigue R53.83 and Other specified hypotension I95.89 [facility] [id number] [place] [address] 43894- 1358 August, [facility] [address] 59456- 1352 Jul, Pain in left knee M25.562 and Gastroenteritis K52.9 [facility] [address] 91629- 1127 Jul, [facility] [address] 03791- 4943 Jul, Diarrhea R19.7 [facility] [address] 91841 -3943 Jul, Spider bite, accidental or unintentional, initial encounter T63.301A [place] [address] 92732- 7022 Jul, Primary osteoarthritis of right knee M17.11 and Arthritis M19.90 [facility] [address] 49730- 7829 Jul, Generalized anxiety disorder F41.1 and Major depressive disorder, recurrent episode, moderate F33.1 [facility] [id number] [place] [address] 29673- 4786 Jul, Type 2 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 and Temporal headache R51 [facility] [id number] [place] [address] 23611- 1128 Jul, Back pain M54.9 [facility] [id number] [place] [address] 45569- 4048 Jul, [facility] [address] 94117- 1326 Jul, [facility] [id number] [place] [address] 20447- 2271 Jun, Nausea R11.0 [facility] [address] [place] [address] Jun, Acute suppurative otitis media of both ears without spontaneous rupture of tympanic membranes, recurrence not specified H66.003 and COPD exacerbation J44.1 [facility] [address] 57083- 5285 Jun, Generalized anxiety disorder F41.1 [place] [address] 30167- 0360 16 Jun, 2016 [facility] [address] 79134 -9776 Jun, [facility] [address] 59126 -5322 Jun, Shortness of breath R06.02 and COPD exacerbation J44.1 [place] [address] 56365- 8983 Jun, Eczema, unspecified type L30.9 [place] [address] 94307- 9048 Jun, [place] [address] 54620- 2023 May, [place] [id number] [place] [address] 20226- 6249 May, Muscle cramping R25.2 [facility] [id number] [place] [address] 09841- 0602 May, [place] [address] 29247- 5669 Apr, Diarrhea R19.7 [place] [address] 04396- 7044 Apr, [facility] [id number] [place] [address] 38111- 4905 Apr, Chronic pain syndrome G89.4 [place] [id number] [place] [address] 17408- 1234 16 Apr, 2016 Cramp of both lower extremities R25.2 and Vascular dementia without behavioral disturbance F01.50 [place] [address] 71023- 6152 Apr, Type 2 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 and Cigarette nicotine dependence without complication F17.210 [place] [address] 58507- 3327 Mar, Generalized anxiety disorder F41.1 [place] [address] 37174- 3555 Feb, Generalized anxiety disorder F41.1 and Major depressive disorder, recurrent episode, moderate F33.1 [place] [address] 40465- 8619 Feb, [facility] [address] 23124 -1900 Feb, Dysuria R30.0 and Acute cystitis with hematuria N30.01 [place] [address] 49108- 5414 Jan, [place] [address] [address] Jan, [place] [address] [address] Jan, [place] [address] [address] Jan, [facility] [address] [address] Jan, Wasp sting, accidental or unintentional, initial encounter T63.461A [place] [address] [address] 06 Jan, 2016 Encounter for immunization Z23 [place] [address] [address] Jan, [facility] [address] [address] Jan, [facility] [id number] [place] [address] 27862- 4273 28 Dec, 2015 Generalized anxiety disorder F41.1 and Major depressive disorder, recurrent episode, moderate F33.1 [facility] [id number] [place] [address] 49971- 5480 21 Dec, 2015 Routine gynecological examination Z01.419 ; Postmenopausal Z78.0 ; Screening breast examination Z12.39 ; Osteopenia M85.80 and Breast cancer screening Z12.39 [facility] [id number] [place] [address] 15291- 3144 20 Dec, 2015 [facility] [id number] [place] [address] 10376- 6870 19 Dec, 2015 [facility] [id number] [place] [address] 79461- 6166 16 Dec, 2015 [facility] [id number] [place] [address] 08107- 0644 16 Dec, 2015 [facility] [id number] [place] [address] 81128- 5379 14 Dec, 2015 [facility] [id number] [place] [address] 06655- 6678 Dec, [facility] [id number] [place] [address] 36403- 3801 Nov, [facility] [id number] [place] [address] 67560 -2450 Nov, Cough R05 ; Other viral agents as the cause of diseases classified elsewhere B97.89 and Acute upper respiratory infection, unspecified J06.9 [facility] [address], [place] [address] 8262 Nov, [facility] [id number] [place] [address] 57443- 4473 Nov, [facility] [address], [place] [address] 7116 Nov, [facility] [address], [place] [address]- 2462 Nov, [facility] [address], [place] [address]- 4548 Nov, [facility] [id number] [place] [address] 93973- 7116 Oct, [facility] [id number] [place] [address] 92792- 8574 Oct, [facility] [id number] [address] 7688 Oct, [facility] [id number] [place] [address] 76210- 0983 Oct, Chronic pain syndrome G89.4 [facility] [address], [place] [address] 3484 Sep, Generalized anxiety disorder F41.1 and Major depressive disorder, recurrent episode, moderate F33.1 [facility] [address], [place] [address]- 6554 Sep, [facility] [address], [place] [address]- 2284 Sep, [facility] [address], [place] [address] 3180 14 Sep, 2015 Generalized anxiety disorder F41.1 [facility] [address], [place] [address] 6002 13 Sep, 2015 Cramp of both lower extremities R25.2 and Cervicalgia M54.2 [facility] [address], [place] [address]- 4220 06 Sep, 2015 Generalized anxiety disorder F41.1 [facility] [id number] [address] 3425 Sep, [facility] [id number] [place] [address] 48199 -5120 August, Rash R21 ; Itching L29.9 and Allergic response, subsequent encounter T78.40XD [facility] [id number] [place] [address] 39276- 8664 August, Primary insomnia F51.01 [facility] [id number] [place] [address] 11665 -7580 August, Rash R21 ; Itching L29.9 and Allergic response, initial encounter T78.40XA [facility] [id number] [place] [address] 18610- 2574 August, [facility] [id number] [place] [address] 38686- 0754 August, Cramp of both lower extremities R25.2 [facility] [id number] [place] [address] 13661- 5666 August, Back pain M54.9 [facility] [id number] [place] [address] 03476- 4172 August, [facility] [id number] [place] [address] 07239- 6617 August, [facility] [id number] [place] [address] 57818 -4432 August, Cramp of both lower extremities R25.2 [facility] [id number] [place] [address] 82167- 0430 August, [facility] [id number] [place] [address] 39002- 7363 August, Syncope R55 ; Paroxysmal atrial fibrillation I48.0 ; Dementia without behavioral disturbance, unspecified dementia type F03.90 and Chronic pain syndrome G89.4 [facility] [id number] [place] [address] 59763- 2747 August, Type 2 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 and Syncope R55 [facility] [id number] [place] [address] 85344- 9989 Jul, [facility] [id number] [place] [address] 93083- 2901 Jul, [facility] [id number] [place] [address] 81960- 0719 Jul, [facility] [id number] [place] [address] 92144- 5177 Jul, [facility] [id number] [place] [address] 32576- 3476 Jul, [facility] [id number] [place] [address] 69515- 4147 Jul, UTI (urinary tract infection) N39.0 [facility] [id number] [place] [address] 75143- 6021 Jul, [facility] [id number] [place] [address] 29508- 0621 Jul, Major depressive disorder, recurrent episode, moderate F33.1 and Generalized anxiety disorder F41.1 [facility] [id number] [place] [address] 96264- 8749 Jul, Generalized anxiety disorder F41.1 [facility] [id number] [place] [address] 94415- 2279 Jul, Diarrhea R19.7 [facility] [id number] [place] [address] 69169- 2776 Jul, [facility] [id number] [place] [address] 46989- 6774 Jun, [facility] [id number] [place] [address] 75103- 5435 Jun, Eczema L30.9 [facility] [address], [place] [address]- 9827 Jun, [facility] [address], [place] [address]- 4126 Jun, COPD (chronic obstructive pulmonary disease) J44.9 [facility] [address], [place] [address]- 8056 Jun, [facility] [id number] [place] [address] 46191- 1210 Jun, Major depressive disorder, recurrent episode, moderate F33.1 and Generalized anxiety disorder F41.1 [facility] [address], [place] [address]- 0256 May, [facility] [id number], [place] [address]- 8415 May, UTI (urinary tract infection) N39.0 [facility] [id number], [place] [address]- 7789 May, [facility] [address], [place] [address]- 6295 May, [facility] [address], [place] [address]- 0530 May, [facility] [address], [place] [address]- 2206 May, [facility] [address], [place] [address]- 4386 Apr, Major depressive disorder, recurrent episode, moderate F33.1 and Generalized anxiety disorder F41.1 [facility] [address], [place] [address]- 4386 Apr, COPD (chronic obstructive pulmonary disease) J44.9 [facility] [address], [place] [address]- 7826 Apr, [facility] [id number], [place] [address]- 7383 Apr, Atrial flutter I48.92 [facility] [id number] [place] [address] 32088- 0907 Apr, [facility] [id number] [place] [address] 11105- 5394 Apr, [facility] [id number] [place] [address] 03387- 3259 Mar, [facility] [id number] [place] [address] 41401- 3679 Mar, [facility] [id number] [place] [address] 48096- 8179 Mar, [facility] [id number] [place] [address] 77111- 9419 Mar, Hyperlipidemia E78.5 ; Type 2 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 ; Major depressive disorder, recurrent episode, moderate F33.1 and Chronic pain syndrome G89.4 [facility] [id number] [place] [address] 83814- 1354 Mar, [facility] [id number] [place] [address] 98283- 7452 Mar, [facility] [id number] [place] [address] 58719- 6534 Mar, [facility] [id number] [place] [address] 68718- 3824 Mar, [facility] [id number] [place] [address] 25168- 1322 Feb, COPD (chronic obstructive pulmonary disease) J44.9 and Back pain M54.9 [facility] [address], [place] [address]- 5842 Feb, [facility] [id number] [place] [address] 27121- 3825 Feb, [facility] [address], [place] [address]- 8047 Feb, [facility] [id number] [place] [address] 77446- 2389 Feb, [facility] [address], [place] [address]- 8572 Feb, [facility] [id number] [place] [address] 08384- 3257 Feb, [facility] [id number] [place] [address] 40576- 0632 Feb, [facility] [id number] [place] [address] 32477- 5124 Feb, [facility] [id number] [place] [address] 22480- 8080 Feb, Diabetes E11.9 ; Back pain M54.9 and COPD (chronic obstructive pulmonary disease) J44.9 [facility] [id number] [place] [address] 13602- 9032 Jan, [facility] [id number] [place] [address] 37956- 6923 Jan, Major depression, recurrent F33.9 and Generalized anxiety disorder F41.1 [facility] [id number] [place] [address] 93890- 5180 Jan, Chronic pain G89.29 [facility] [address], [place] [address]- 4964 Jan, [facility] [id number] [place] [address] 83219- 3697 Jan, [facility] [id number] [place] [address] 81798- 1315 Jan, [facility] [address], [place] [address]- 9223 Jan, [facility] [id number] [place] [address] 29678- 7437 Jan, Nicotine dependence F17.200 [facility] [address] 55114- 3898 Jan, Nicotine dependence F17.200 and Back pain M54.9 [facility] [id number] [place] [address] 45494- 5232 Jan, [facility] [id number] [place] [address] 33078- 4523 28 Dec, 2014 [facility] [id number] [place] [address] 06532- 9643 25 Dec, 2014 Anxiety, generalized 300.02 and Major depression, recurrent 296.30 [facility] [id number] [place] [address] 38281- 3915 24 Dec, 2014 [facility] [id number] [place] [address] 89536- 1266 21 Dec, 2014 [facility] [id number] [place] [address] 34821- 9894 17 Dec, 2014 [facility] [id number] [place] [address] 85779- 3822 15 Dec, 2014 [facility] [id number] [place] [address] 69350- 8227 14 Dec, 2014 [facility] [id number] [place] [address] 26776- 1102 11 Dec, 2014 [facility] [id number] [place] [address] 94937- 9182 10 Dec, 2014 [facility] [id number] [place] [address] 33889- 7215 08 Dec, 2014 Skin tear 879.8 [facility] [id number] [place] [address] 34083- 5300 08 Dec, 2014 Routine gynecological examination V72.31 ; Breast cancer screening V76.10 and Family history of breast cancer in first degree relative V16.3 [facility] [address], [place] [address]- 9382 Dec, [facility] [id number] [place] [address] 34212- 4277 Dec, [facility] [address], [place] [address]- 9731 Nov, [facility] [id number] [place] [address] 89701- 1912 Nov, [facility] [id number] [place] [address] 46126- 7237 Nov, Poor balance 781.99 and Vascular dementia, uncomplicated 290.40 [facility] [id number] [place] [address] 67175- 6580 Nov, [facility] [id number] [place] [address] 24965- 2080 Nov, Major depression, recurrent 296.30 and Anxiety, generalized 300.02 [facility] [id number] [place] [address] 66012- 5872 Nov, [facility] [id number] [place] [address] 78842- 4584 Nov, [facility] [address], [place] [address]- 2736 Nov, [facility] [id number] [place] [address] 52570- 6975 Nov, [facility] [address], [place] [address]- 5579 Nov, Vascular dementia, uncomplicated 290.40 and Lumbago 724.2 [facility] [address], [place] [address]- 7262 Nov, [facility] [id number] [place] [address] 14678- 0884 Nov, [facility] [address], [place] [address]- 9288 Nov, [facility] [address], [place] [address]- 9048 Oct, [facility] [address], [place] [address]- 7644 Oct, [facility] [id number] [place] [address] 17772- 4005 Oct, [facility] [address], [place] [address]- 9815 Oct, COPD (chronic obstructive pulmonary disease) 496 and Hyperlipidemia 272.4 [facility] [address], [place] [address]- 3495 Oct, Major depression, recurrent 296.30 and Anxiety, generalized 300.02 [facility] [id number] [address]- 8268 Oct, [facility] [address], [place] [address]- 5532 Oct, [facility] [id number], [place] [address]- 1004 Oct, [facility] [address], [place] [address]- 2492 Sep, Lumbago 724.2 and Anxiety state, unspecified 300.00 [facility] [address], [place] [address]- 8462 Sep, [facility] [id number], [place] [address]- 2098 Sep, [facility] [id number], [place] [address]- 7600 August, [facility] [id number] [address]- 0170 August, Major depression, recurrent 296.30 ; Anxiety, generalized 300.02 and No condition on [place] V71.09 [facility] [id number] [place] [address]- 7721 August, [facility] [address] [facility] [id number] [place] [address]26 August, [facility] [address], [place] [address]- 9347 Jul, [facility] [address] [facility] [id number] [place] [address]- 0393 Jul, [facility] [address] [place] [address]- 6553 Jul, [facility] [id number] [place] [address]- 5825 Jun, [facility] [address] [place] [address]- 5757 Jun, [facility] [id number] [address]- 0260 Jun, [facility] [address] [place] [address]- 9718 Jun, [facility] [id number] [address]- 6411 Jun, [facility] [address] [place] [address]- 6791 Jun, [facility] [id number] [address]- 9624 23 Jun, 2014 [facility] [id number]- 2140 17 Jun, 2014 [facility] [address] [facility] [id number] 0426 Jun, [facility] [id number] 6226 Jun, [facility] [place] [facility] [address] [id number] [place] [address]- 8382 10 Jun, 2014 [facility] [place] [facility] [address] [id number] [place] [address]- 6700 10 Jun, 2014 [facility] [place] [facility] [address] [id number] [place] [address]- 1203 07 Jun, 2014 [facility] [place] [facility] [address] [id number] [place] [address]- 3558 07 Jun, 2014 [facility] [place] [facility] [address] [id number] [place] [address]- 7413 Jun, [facility] [place] [facility] [address] [id number] [place] [address]- 3584 Jun, 2014 [facility] [place] [facility] [address] [id number] [place] [address]- 2845 May, [facility] [place] [facility] [address] [id number] [place] [address]- 9560 May, 2014 [facility] [place] [facility] [address] [id number] [place] [address]- 1820 May, [facility] [place] [facility] [address] [facility] [id number] [place] [address]- 5855 May, 2014 [facility] [place] [facility] [address] [facility] [id number] [place] [address]- 9710 May, 2014 [facility] [place] [facility] [address] [id number] [place] [address]- 7278 May, 2014 [facility] [place] [facility] [address] [id number] [place] [address]- 2545 May, 2014 [facility] [place] [facility] [address] [id number] [place] [address]- 3654 12 May, 2014 [facility] [place] [facility] [address] [facility] [id number] [place] [address]- 9551 May, 2014 [facility] [place] [facility] [address] [facility] [id number] [place] [address]- 7804 May, 2014 [facility] [place] [facility] [address] [id number] [place] [address]- 1096 May, 2014 [facility] [place] [facility] [address] [id number] [place] [address] May, 2014 [facility] [place] [facility] [address] [id number] [place] [address] May, 2014 [facility] [place] [facility] [address] [id number] [place] [address] May, [facility] [place] [facility] [address] [id number] [place] [address] Apr, [facility] [place] [facility] [address] [id number] [place] [address] Apr, [facility] [place] [facility] [address] [id number] [place] [address] Apr, [facility] [place] [facility] [address] [id number] [place] [address] Apr, [facility] [place] [facility] [address] [id number] [place] [address] Apr, [facility] [place] [facility] [address] [id number] [place] [address] Apr, [facility] [place] [facility] [address] [id number] [place] [address] Apr, [facility] [place] [facility] [address] [id number] [place] [address] Apr, [facility] [place] [facility] [address] [id number] [place] [address] Apr, [facility] [place] [facility] [address] [id number] [place] [address] Apr, [facility] [place] [facility] [address] [id number] [place] [address] Apr, [facility] [place] [facility] [address] [id number] [place] [address] Apr, [facility] [place] [facility] [address] [id number] [place] [address] Mar, [facility] [place] [facility] [address] [id number] [place] [address] 31 Mar, 2014 [facility] [place] [facility] [address] [id number] [place] [address] 30 Mar, 2014 [facility] [place] [facility] [address] [id number] [place] [address] 30 Mar, 2014 [facility] [place] [facility] [address] [id number] [place] [address] Mar, [facility] [place] [facility] [address] [id number] [place] [address] Mar, [facility] [place] [facility] [address] [id number] [place] [address] Mar, [facility] [place] [facility] [address] [id number] [place] [address] 19 Mar, 2014 [facility] [place] [facility] [address] [id number] [place] [address] 15 Mar, 2014 [facility] [place] [facility] [address] [id number] [place] [address] 15 Mar, 2014 [facility] [place] [facility] [address] [id number] [place] [address] 15 Mar, 2014 [facility] [place] [facility] [address] [id number] [place] [address] 15 Mar, 2014 [facility] [place] [facility] [address] [id number] [place] [address] 15 Mar, 2014 [facility] [place] [facility] [address] [id number] [place] [address] 15 Mar, 2014 [facility] [place] [facility] [address] [id number] [place] [address] Mar, [facility] [place] [facility] [address] [id number] [place] [address] Mar, [facility] [place] [facility] [address] [id number] [place] [address] Mar, [facility] [place] [facility] [address] [id number] [place] [address] Mar, [facility] [place] [facility] [address] [id number] [place] [address] Mar, [facility] [place] [facility] [address] [id number] [place] [address] Mar, [facility] [place] [facility] [address] [id number] [place] [address] Feb, [facility] [place] [facility] [address] [id number] [place] [address] Feb, [facility] [place] [facility] [address] [id number] [place] [address] Feb, [facility] [place] [facility] [address] [id number] [place] [address] Feb, [facility] [place] [facility] [address] [id number] [place] [address] Feb, [facility] [place] [facility] [address] [id number] [place] [address] Feb, [facility] [place] [facility] [address] [address] [id number], [place] [address] Feb, [facility] [place] [facility] [address] [id number] [place] [address] 3713 Feb, [facility] [place] [facility] [address] [id number] [place] [address] 7200 Feb, [facility] [place] [facility] [address] [id number], [place] [address] 9881 Feb, [facility] [place] [facility] [address] [id number] [place] [address]- 3509 Feb, [facility] [place] [facility] [address] [id number] [place] [address] Feb, [facility] [place] [facility] [address] [id number] [place] [address] Feb, [facility] [place] [facility] [address] [id number] [place] [address]- 5456 Feb, [facility] [place] [facility] [address] [id number] [place] [address]- 1773 Feb, [facility] [place] [facility] [address] [id number] [place] [address]- 8312 Feb, [facility] [place] [facility] [address] [id number] [place] [address]- 6021 Feb, [facility] [place] [facility] [address] [id number] [place] [address]- 1247 Jan, [facility] [place] [facility] [address] [id number] [place] [address]- 5472 Jan, [facility] [place] [facility] [address] [id number] [place] [address]- 2271 Jan, [facility] [place] [facility] [address] [id number] [place] [address]- 4046 Jan, [facility] [place] [facility] [address] [id number] [place] [address]- 6371 Jan, [facility] [place] [facility] [address] [id number] [place] [address]- 7418 Jan, [facility] [place] [facility] [address] [id number] [place] [address]- 4395 16 Jan, 2014 [facility] [place] [facility] [address] [id number] [place] [address] 16 Jan, 2014 [facility] [place] [facility] [address] [id number] [place] [address]- 6954 Jan, [facility] [place] [facility] [address] [id number] [place] [address]- 3783 Jan, [facility] [place] [facility] [address] [id number] [place] [address]- 4728 Jan, [facility] [place] [facility] [address] [id number] [place] [address]- 8989 Dec, [facility] [place] [facility] [address] [id number] [place] [address]- 8055 Dec, [facility] [place] [facility] [address] [id number] [place] [address]- 6533 Nov, [facility] [place] [facility] [address] [id number] [place] [address]- 5076 Nov, [facility] [place] [facility] [address] [id number] [place] [address]- 1242 Nov, [facility] [place] [facility] [address] [id number] [place] [address]- 6906 Nov, [facility] [place] [facility] [address] [id number] [place] [address]- 9853 Nov, [facility] [place] [facility] [address] [id number] [place] [address]- 5847 Nov, [facility] [place] [facility] [address] [id number], [place] [address]- 7842 Nov, [facility] [place] [facility] [address] [id number], [place] [address]- 9609 Oct, [facility] [place] [facility] [address] [id number] [place] [address]- 1494 Oct, [facility] [place] [facility] [address] [id number], [place] [address]- 2174 Oct, [facility] [place] [facility] [address] [id number] [place] [address] Oct, [facility] [place] [facility] [address] [id number] [place] [address]- 5408 30 Sep, 2013 [facility] [place] [facility] [address] [id number] [place] [address]- 2042 Sep, [facility] [place] [facility] [address] [id number] [place] [address]- 0066 Sep, [facility] [place] [facility] [address] [id number] [place] [address]- 6723 Sep, [facility] [place] [facility] [address] [id number] [place] [address]- 3983 Sep, [facility] [place] [facility] [address] [id number] [place] [address]- 6028 Sep, [facility] [place] [facility] [address] [id number] [place] [address]- 5748 Sep, [facility] [place] [facility] [address] [id number] [place] [address]- 2353 Sep, [facility] [place] [facility] [address] [id number] [place] [address]- 1837 Sep, [facility] [place] [facility] [address] [id number] [place] [address]- 1668 Sep, [facility] [place] [facility] [address] [id number] [place] [address]- 7727 Sep, [facility] [place] [facility] [address] [id number] [place] [address]- 1036 Sep, [facility] [place] [facility] [address] [id number] [place] [address]- 4127 Sep, [facility] [place] [facility] [address] [id number] [place] [address]- 7471 Sep, [facility] [place] [facility] [address] [id number] [place] [address]- 7060 August, [facility] [place] [facility] [address] [id number] [place] [address]- 9812 August, [facility] [place] [facility] [address] [id number] [place] [address]- 0411 August, [facility] [address] [id number] [place] [address]- 9983 August, [facility] [address] [id number] [place] [address]- 5841 August, [facility] [address] [id number] [place] [address]- 7957 August, [facility] [address] [id number] [place] [address]- 9023 August, [facility] [address] [id number] [place] [address]- 9842 August, [facility] [address] [id number] [place] [address]- 3016 August, [facility] [address] [id number] [place] [address]- 3806 August, [facility] [address] [id number] [place] [address]- 4287 August, [facility] [address] [id number] [place] [address]- 9985 August, [facility] [address] [id number] [place] [address]- 9879 August, [facility] [address] [id number] [place] [address]- 2286 August, [facility] [place] [facility] [address] [id number] [place] [address]- 6441 August, [facility] [place] [facility] [address] [id number] [place] [address]- 8383 August, [facility] [place] [facility] [address] [id number] [place] [address]- 3637 August, [facility] [place] [facility] [address] [id number] [place] [address]- 6703 August, [facility] [place] [facility] [address] [id number] [place] [address] August, [facility] [place] [facility] [address] [id number] [place] [address]- 6753 Jul, [facility] [place] [facility] [address] [id number] [place] [address]- 2611 Jul, [facility] [place] [facility] [address] [id number] [place] [address]- 2840 Jul, [facility] [place] [facility] [address] [id number] [place] [address]- 8042 Jul, [facility] [place] [facility] [address] [id number] [place] [address]- 6934 Jun, [facility] [place] [facility] [address] [id number] [place] [address]- 7948 Jun, [facility] [place] [facility] [address] [id number] [place] [address]- 7165 Jun, [facility] [place] [facility] [address] [id number] [place] [address]- 8510 Jun, [facility] [place] [facility] [address] [id number] [place] [address]- 5051 Jun, [facility] [place] [facility] [address] [id number] [place] [address]- 5903 Jun, [facility] [place] [facility] [address] [id number] [place] [address]- 1055 Jun, [facility] [place] [facility] [address] [id number] [place] [address]- 4232 Jun, [facility] [place] [facility] [address] [id number] [place] [address]- 1680 Jun, [facility] [place] [facility] [address] [id number] [place] [address]- 4951 Jun, [facility] [place] [facility] [address] [id number] [place] [address]- 2351 May, [facility] [place] [facility] [address] [id number] [place] [address]- 7686 May, [facility] [place] [facility] [address] [id number] [place] [address]- 2276 May, [facility] [place] [facility] [address] [id number] [place] [address]- 8311 May, [facility] [place] [facility] [address] [id number] [place] [address]- 2549 May, [facility] [place] [facility] [address] [id number] [place] [address]- 4356 May, [facility] [place] [facility] [address] [facility] [id number] [place] [address]- 6018 May, [facility] [place] [facility] [address] [facility] [id number] [place] [address]- 8221 May, [facility] [place] [facility] [address] [id number] [place] [address]- 6185 May, [facility] [place] [facility] [address] [facility] [id number] [place] [address]- 5392 May, [facility] [place] [facility] [address] [facility] [id number] [place] [address]- 1264 18 May, 2013 [facility] [place] [facility] [address] [facility] [id number] [place] [address]- 8982 17 May, 2013 [facility] [place] [facility] [address] [facility] [id number] [place] [address]- 2546 May, [facility] [place] [facility] [address] [id number] [place] [address]- 8076 May, [facility] [place] [facility] [address] [facility] [id number] [place] [address]- 6196 10 May, 2013 [facility] [place] [facility] [address] [facility] [id number] [place] [address]- 6084 07 May, 2013 [facility] [address] [id number] [place] [address]- 4163 07 May, 2013 [facility] [address] [id number] [place] [address]- 6105 17 Apr, 2013 [facility] [address] [id number] [place] [address]- 1507 Apr, [facility] [address] [id number] [place] [address]- 6957 Apr, [facility] [address] [id number] [place] [address]- 1805 Apr, [facility] [address] [id number] [place] [address]- 5067 Apr, [facility] [address] [id number] [place] [address]- 6797 Apr, [facility] [address] [id number] [place] [address]- 0052 Apr, [facility] [address] [id number] [place] [address]- 0402 Mar, [facility] [address] [id number] [place] [address]- 2719 Mar, [facility] [address] [id number] [place] [address]- 3846 Mar, [facility] [address] [id number] [place] [address]- 0066 Mar, [facility] [address] [id number] [place] [address]- 3456 Mar, [facility] [address] [id number] [place] [address]- 1726 Mar, [facility] [address] [id number] [place] [address]- 0197 Mar, [facility] [place] [facility] [address] [id number] [place] [address]- 5709 Mar, [facility] [place] [facility] [address] [id number] [place] [address]- 0035 Mar, [facility] [place] [facility] [address] [id number] [place] [address]- 6642 Mar, [facility] [place] [facility] [address] [id number] [place] [address]- 5646 Mar, [facility] [address] [id number] [place] [address]- 1839 Feb, [facility] [place] [facility] [address] [id number] [place] [address]- 6952 Feb, [facility] [address] [id number] [place] [address]- 9578 Feb, [facility] [address] [id number] [place] [address]- 5475 20 Feb, 2013 [facility] [place] [facility] [address] [id number] [place] [address]- 5652 Feb, [facility] [place] [facility] [address] [id number] [place] [address]- 7771 19 Feb, 2013 [facility] [place] [facility] [address] [id number] [place] [address]- 1652 15 Feb, 2013 [facility] [place] [facility] [address] [id number], [place] [address]- 4806 14 Feb, 2013 [facility] [place] [facility] [address] [id number] [place] [address]- 1022 14 Feb, 2013 [facility] [place] [facility] [address] [id number], [place] [address]- 4894 13 Feb, 2013 [facility] [place] [facility] [address] [id number], [place] [address]- 3612 13 Feb, 2013 [facility] [place] [facility] [address] [id number], [place] [address]- 1390 Feb, [facility] [place] [facility] [address] [id number] [place] [address]- 4624 Feb, [facility] [place] [facility] [address] [id number] [place] [address]- 8655 Feb, [facility] [place] [facility] [address] [id number] [place] [address]- 2295 Feb, [facility] [place] [facility] [address] [id number] [place] [address]- 4037 Feb, [facility] [place] [facility] [address] [id number] [place] [address]- 7793 Jan, [facility] [place] [facility] [address] [id number] [place] [address]- 0247 Jan, [facility] [place] [facility] [address] [id number] [place] [address]- 5130 Jan, [facility] [place] [facility] [address] [id number] [place] [address]- 4901 Jan, [facility] [place] [facility] [address] [id number] [place] [address]- 0622 Jan, [facility] [place] [facility] [address] [id number] [place] [address]- 4872 Jan, [facility] [place] [facility] [address] [id number], [place] [address]- 7081 Jan, [facility] [place] [facility] [address] [id number], [place] [address]- 5030 Jan, [facility] [place] [facility] [address] [id number] [place] [address]- 4425 10 Jan, 2013 [facility] [place] [facility] [address] [id number] [place] [address]- 0111 27 Dec, 2012 [facility] [place] [facility] [address] [id number] [place] [address]- 1434 20 Dec, 2012 [facility] [place] [facility] [address] [id number] [place] [address]- 4424 19 Dec, 2012 [facility] [place] [facility] [address] [id number] [place] [address]- 1295 10 Dec, 2012 [facility] [place] [facility] [address] [id number] [place] [address]- 6076 04 Dec, 2012 [facility] [place] [facility] [address] [id number] [place] [address]- 7842 03 Dec, 2012 [facility] [place] [facility] [address] [id number] [place] [address]- 6492 Nov, [facility] [place] [facility] [address] [id number] [place] [address]- 2910 Nov, [facility] [place] [facility] [address] [id number] [place] [address]- 5307 Nov, [facility] [place] [facility] [address] [id number] [place] [address]- 3206 Nov, [facility] [place] [facility] [address] [id number] [place] [address]- 4847 Nov, [facility] [place] [facility] [address] [id number] [place] [address]- 7909 Nov, [facility] [place] [facility] [address] [id number] [place] [address]- 9746 Nov, [facility] [place] [facility] [address] [id number] [place] [address]- 2321 Nov, [facility] [place] [facility] [address] [id number] [place] [address]- 2543 14 Nov, 2012 [facility] [place] [facility] [address] [id number] [place] [address]- 2557 Nov, [facility] [place] [facility] [address] [id number] [place] [address]- 2546 Oct, [facility] [place] [facility] [address] [id number] [place] [address]- 8237 Oct, [facility] [place] [facility] [address] [id number] [place] [address]- 2163 Oct, [facility] [place] [facility] [address] [id number] [place] [address]- 6401 Oct, [facility] [place] [facility] [address] [id number] [place] [address]- 9403 Oct, [facility] [place] [facility] [address] [id number] [place] [address]- 5179 Oct, [facility] [place] [facility] [address] [id number] [place] [address]- 4405 Oct, [facility] [place] [facility] [address] [id number] [place] [address]- 1202 Oct, [facility] [place] [facility] [address] [id number] [place] [address]- 3853 Sep, [facility] [place] [facility] [address] [id number] [place] [address]- 1189 Sep, [facility] [place] [facility] [address] [id number] [place] [address]- 7858 Sep, [facility] [place] [facility] [address] [id number] [place] [address]- 1229 Sep, [facility] [place] [facility] [address] [id number] [place] [address]- 1867 Sep, [facility] [place] [facility] [address] [id number], [place] [address]- 3798 Sep, [facility] [place] [facility] [address] [id number] [place] [address]- 5790 Sep, [facility] [place] [facility] [address] [id number] [place] [address]- 7869 Sep, [facility] [place] [facility] [address] [id number] [place] [address]- 4950 August, [facility] [place] [facility] [address] [id number] [place] [address]- 3240 August, [facility] [address] [id number] [place] [address]- 4879 August, [facility] [address] [id number] [place] [address] August, [facility] [address] [id number] [place] [address] August, [facility] [address] [id number] [place] [address] Jul, [facility] [address] [id number] [place] [address] Jul, [facility] [address] [id number] [place] [address] Jul, [facility] [address] [id number] [place] [address] Jul, [facility] [address] [id number] [place] [address] Jul, [facility] [address] [id number] [place] [address] 18 Jun, 2012 [facility] [address] [id number] [place] [address] 18 Jun, 2012 [facility] [address] [id number] [place] [address] 15 Jun, 2012 [facility] [address] [id number] [place] [address] 14 Jun, 2012 [facility] [place] [facility] [address] [id number] [place] [address] 12 Jun, 2012 [facility] [place] [facility] [address] [id number] [place] [address] 08 Jun, 2012 [facility] [address] [id number] [place] [address] 08 Jun, 2012 [facility] [address] [id number] [place] [address] Jun, [facility] [address] [id number] [place] [address] Jun, [facility] [address] [id number] [place] [address] May, [facility] [address] [id number] [place] [address] May, [facility] [address] [id number] [place] [address] May, [facility] [address] [id number] [place] [address] May, [facility] [address] [id number] [place] [address] Apr, [facility] [address] [id number] [place] [address] Apr, [facility] [address] [id number] [place] [address] Apr, [facility] [address] [id number] [place] [address] Apr, [facility] [address] [id number] [place] [address] Apr, [facility] [address] [id number] [place] [address] Apr, [facility] [address] [id number] [place] [address] Apr, [facility] [address] [id number] [place] [address] Mar, [facility] [address] [place] [id number] Mar, [facility] [address] [id number] [place] [address] Mar, [facility] [place] [facility] [address] [id number] [place] [address] Mar, [facility] [place] [facility] [address] [id number] [place] [address] Mar, [facility] [place] [facility] [address] [id number] [place] [address] Mar, [facility] [place] [facility] [address] [id number] [place] [address] Mar, [facility] [place] [facility] [address] [id number] [place] [address] Mar, [facility] [place] [facility] [address] [id number] [place] [address] Mar, [facility] [place] [facility] [address] [id number] [place] [address] Mar, [facility] [place] [facility] [address] [id number] [place] [address]37 Mar, [facility] [place] [facility] [address] [id number] [place] [address]- [address] Mar, [facility] [place] [facility] [address] [id number] [place] [address] Mar, [facility] [place] [facility] [address] [id number] [place] [address] Mar, [facility] [place] [facility] [address] [id number], [place] [address] Mar, [facility] [place] [facility] [address] [id number] [place] [address] Mar, [facility] [place] [facility] [address] [id number] [place] [address] Mar, [facility] [place] [facility] [address] [id number] [place] [address] Feb, [facility] [place] [facility] [address] [id number] [place] [address]- [address] Feb, [facility] [place] [facility] [address] [id number] [place] [address]- [address] Feb, [facility] [place] [facility] [address] [id number] [place] [address]- [address]6 Feb, [facility] [place] [facility] [address] [id number] [place] [address]- [address] Feb, [facility] [place] [facility] [address] [id number] [place] [address]- [address]369 Feb, [facility] [place] [facility] [address] [id number] [place] [address]- [address] Feb, [facility] [place] [facility] [address] [id number] [place] [address] Feb, [facility] [place] [facility] [address] [id number] [place] [address]- [address] Feb, [facility] [place] [facility] [address] [id number] [place] [address]- [address]77 Feb, [facility] [place] [facility] [address] [id number] [place] [address] Feb, [facility] [place] [facility] [address] [id number] [place] [address] Feb, [facility] [place] [facility] [address] [id number] [place] [address] 164[address] Feb, [facility] [place] [facility] [address] [id number], [place] [address] Feb, [facility] [place] [facility] [address] [id number] [place] [address]- [address] Feb, [facility] [place] [facility] [address] [id number] [place] [address]- [address] Feb, [facility] [place] [facility] [address] [id number], [place] [address] Jan, [facility] [place] [facility] [address] [id number] [place] [address]- [address] Jan, [facility] [place] [facility] [address] [id number] [place] [address]- 4068 Jan, [facility] [place] [facility] [address] [id number] [place] [address]- [address] Jan, [facility] [place] [facility] [address] [id number] [place] [address]- 8060 Jan, [facility] [place] [facility] [address] [id number] [place] [address]- [address]298 Jan, [facility] [place] [facility] [address] [id number] [place] [address]- [address] Jan, [facility] [place] [facility] [address] [id number] [place] [address]- [address]36 Jan, [facility] [place] [facility] [address] [id number] [place] [address]- 1140 Jan, [facility] [place] [facility] [address] [id number] [place] [address]- [address] Jan, [facility] [place] [facility] [address] [id number] [place] [address]- [address] Jan, [facility] [place] [facility] [address] [id number] [place] [address]- 97[address] Jan, [facility] [place] [facility] [address] [id number], [place] [address] Jan, [facility] [place] [facility] [address] [id number] [place] [address] Jan, [facility] [place] [facility] [address] [id number] [place] [address] Jan, [facility] [place] [facility] [address] [id number] [place] [address] Jan, [facility] [place] [facility] [address] [id number], [place] [address] 04 Jan, 2012 [facility] [place] [facility] [address] [id number] [place] [address]76 21 Dec, 2011 [facility] [place] [facility] [address] [id number] [place] [address] 20 Dec, 2011 [facility] [place] [facility] [address] [id number] [place] [address] 2546 18 Dec, 2011 [facility] [place] [facility] [address] [id number] [place] [address] 2546 18 Dec, 2011 [facility] [place] [facility] [address] [id number] [place] [address] 2546 10 Dec, 2011 [facility] [place] [facility] [address] [id number] [place] [address] 1416 10 Dec, 2011 [facility] [place] [facility] [address] [id number] [place] [address] 10 Dec, 2011 [facility] [place] [facility] [address] [id number] [place] [address] 8029 07 Dec, 2011 [facility] [place] [facility] [address] [id number] [place] [address] 1285 30 Nov, 2011 [facility] [place] [facility] [address] [id number] [place] [address] 1799 Nov, [facility] [place] [facility] [address] [id number] [place] [address] 44[address] Nov, [facility] [place] [facility] [address] [id number] [place] [address] 2542 Nov, [facility] [place] [facility] [address] [id number] [place] [address] 2546 Nov, [facility] [place] [facility] [address] [id number] [place] [address]42 Nov, [facility] [place] [facility] [address] [id number] [place] [address]- 2549 30 Oct, 2011 [facility] [place] [facility] [address] [id number] [place] [address]- 9027 30 Oct, 2011 [facility] [address] [id number] [place] [address] 264[address] Oct, [facility] [place] [facility] [address] [id number] [place] [address] 6416 Oct, [facility] [address] [id number] [place] [address] 4657 Oct, [facility] [place] [facility] [address] [id number] [place] [address] 6073 Oct, [facility] [address] [id number] [place] [address] 2913 Oct, [facility] [place] [facility] [address] [id number] [place] [address] 8736 Sep, [facility] [place] [facility] [address] [id number] [place] [address]137 Sep, [facility] [place] [facility] [address] [id number] [place] [address]- 9634 Sep, [facility] [place] [facility] [address] [id number] [place] [address]- 5535 Sep, [facility] [address] [id number] [place] [address] 4[address] Sep, [facility] [place] [facility] [address] [id number] [place] [address]- 2543 15 Sep, 2011 [facility] [place] [facility] [address] [id number] [place] [address]- 4644 14 Sep, 2011 [facility] [place] [facility] [address] [id number] [place] [address]- 8301 11 Sep, 2011 [facility] [place] [facility] [address] [id number] [place] [address]- 1875 05 Sep, 2011 [facility] [place] [facility] [address] [id number] [place] [address]- 0149 Sep, [facility] [address] [id number] [place] [address] 33[address] August, [facility] [place] [facility] [address] [id number] [place] [address] 50[address] August, [facility] [place] [facility] [address] [id number] [place] [address]- 0266 August, [facility] [place] [facility] [address] [id number] [place] [address]- 1466 August, [facility] [address] [id number] [place] [address]- 4045 August, [facility] [place] [facility] [address] [id number] [place] [address]- 8876 Jul, [facility] [place] [facility] [address] [id number] [place] [address]- 4[address] Jul, [facility] [address] [id number] [place] [address]- 3479 Jul, [facility] [place] [facility] [address] [id number] [place] [address] 7089 Jul, [facility] [place] [facility] [address] [id number] [place] [address]- 1005 Jul, [facility] [place] [facility] [address] [id number] [place] [address]- 5562 Jul, [facility] [place] [facility] [address] [id number], [place] [address] 5[address] Jul, [facility] [place] [facility] [address] [id number] [place] [address]- 5208 Jun, [facility] [place] [facility] [address] [id number] [place] [address]- 8732 Jun, [facility] [place] [facility] [address] [id number] [place] [address]- 4661 Jun, [facility] [place] [facility] [address] [id number], [place] [address]- [address] Jun, [facility] [place] [facility] [address] [id number] [place] [address]- 9093 Jun, [facility] [place] [facility] [address] [id number] [place] [address]- 9346 May, [facility] [place] [facility] [address] [id number] [place] [address] 0156 May, [facility] [place] [facility] [address] [id number] [place] [address]- 2954 May, [facility] [place] [facility] [address] [id number] [place] [address]- 8868 May, [facility] [place] [facility] [address] [id number] [place] [address]- 0537 May, [facility] [place] [facility] [address] [facility] [id number] [place] [address]- 5131 May, [facility] [place] [facility] [address] [id number] [place] [address]- 4558 Apr, [facility] [place] [facility] [address] [facility] [id number] [place] [address]- 4832 Mar, [facility] [place] [facility] [address] [facility] [id number] [place] [address]- 7101 Feb, [facility] [place] [facility] [address] [id number] [place] [address] 2547 Feb, [facility] [place] [facility] [address] [id number] [place] [address]- 2542 Feb, [facility] [place] [facility] [address] [id number] [place] [address]- 2649 Feb, [facility] [place] [facility] [address] [facility] [id number] [place] [address]- 2784 Jan, [facility] [place] [facility] [address] [id number] [place] [address]- 6457 Jan, [facility] [place] [facility] [address] [id number] [place] [address]- 5679 26 Jan, 2011 [facility] [address] [id number] [place] [address] 24 Jan, 2011 [facility] [address] [id number] [place] [address]- 3985 14 Jan, 2011 [facility] [address] [id number] [place] [address]- 4518 19 Dec, 2010 [facility] [address] [id number] [place] [address]- 3679 Oct, [facility] [address] [id number] [place] [address]- 4992 August, [facility] [address] [id number] [place] [address]- 1607 29 Mar, 2010 [facility] [address] [id number] [place] [address]- 2008 27 Mar, 2010 [facility] [address] [id number] [place] [address]- 4643 16 Mar, 2010 [facility] [address] [id number] [place] [address]- 9524 15 Mar, 2010 [facility] [address] [id number] [place] [address]- 4497 15 Mar, 2010 [facility] [place] [facility] [address] [id number] [place] [address]- 5166 08 Mar, 2010 [facility] [place] [facility] [address] [id number] [place] [address]- 6127 03 Mar, 2010 [facility] [place] [facility] [address] [id number] [place] [address]- 9193 24 Feb, 2010 [facility] [place] [facility] [address] [id number] [place] [address]- 5726 24 Feb, 2010 [facility] [place] [facility] [address] [id number], [place] [address]- 0484 15 Feb, 2010 [facility] [place] [facility] [address] [id number] [place] [address]- 5893 19 Jan, 2010 [facility] [place] [facility] [address] [id number], [place] [address]- 9645 Jan, [facility] [place] [facility] [address] [id number] [place] [address]- 9312 Jan, [facility] [place] [facility] [address] [id number], [place] [address]- 3158 Nov, [facility] [place] [facility] [address] [id number] [place] [address]- 7731 Sep, [facility] [place] [facility] [address] [id number], [place] [address]- 9687 August, [facility] [place] [facility] [address] [id number], [place] [address]- 3430 30 Mar, 2009 [facility] [place] [facility] [address] [id number], [place] [address]- 9305 Mar, [facility] [place] [facility] [address] [id number], [place] [address]- 2638 17 Feb, 2009 [facility] [place] [facility] [address] [id number], [place] [address]- 2665 Feb, [facility] [place] [facility] [address] [id number], [place] [address]- 3647 10 Feb, 2009 [facility] [place] [facility] [address] [id number], [place] [address]- 8161 10 Feb, 2009 [facility] [place] [facility] [address] [id number], [place] [address]- 5120 06 Feb, 2009 [facility] [place] [facility] [address] [id number], [place] [address]- 6130 27 Jan, 2009 [facility] [place] [facility] [address] [id number], [place] [address]- 9644 Jan, [facility] [place] [facility] [address] [id number], [place] [address]- [address]199 Jan, [facility] [address] [id number], [place] [address] 3994 Jan, [facility] [id number], [place] [address]- 5535 Nov, [facility] [id number], [place] [address]- 2743 Sep, [facility] [id number], [place] [address]- 3200 August, [facility] [id number] [place] [address] 76[address] Jul, [facility] [id number], [place] [address]- 1763 May, IMMUNIZATIONS No Known Immunizations SOCIAL HISTORY Never Assessed REASON FOR VISIT Triage PLAN OF CARE VITAL SIGNS MEDICATIONS Unknown [...] Knee Surgery 07/16/17 Hospitalization History [facility]- left hand/wrist swelling 10/09/2017
--- OUTSIDE RECORDS SUMMARY | 2018-01-01 12:08 | XMS REPORT ---
Author Author [facility]IT [facility]UNLAP [facility] Address [address] [place] [address] Care Team Providers Care Slider Assembler Name Role Phone SENAIT DUNLAP Unavailable PROBLEMS Type Condition ICD9-CM Code YKB40-MT Code Onset Dates Condition Status SNOMED Code Problem History of common bile duct surgery Z98.89 Active 368312662 Problem Barretts esophagus K22.70 Active 500108917 Problem 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 Active 63080032 Problem Colon polyp K63.5 Active 43968467 Problem Bilateral low back pain without sciatica M54.5 Active 687321666 Problem Screening breast examination Z12.39 Active 774765829 Problem Postmenopausal Z78.0 Active 74966910 Problem Osteopenia M85.80 Active 164680528 Problem Cigarette nicotine dependence without complication F17.210 Active 17043671 Problem Type 2 diabetes mellitus with diabetic peripheral angiopathy without gangrene E11.51 Active 509933831 Problem Vascular dementia without behavioral disturbance F01.50 Active 49494891599502733 Problem Unspecified atherosclerosis of lime arteries of extremities, unspecified extremity I70.209 Active 947550696859329 Problem Arthritis M19.90 Active 9563877 Problem Chronic atrial fibrillation I48.2 Active 884075188 Problem Chronic obstructive pulmonary disease with acute lower respiratory infection J44.0 Active 516642691 Problem Other chronic pancreatitis K86.1 Active 811940101 Problem Stress incontinence of urine N39.3 Active 51260899 Problem Controlled type 2 diabetes mellitus without complication, without long -term current use of insulin E11.9 Active 102175230 Problem Unspecified psychosis F29 Active 59626274 Problem Xeroderma Q80.9 Active 83329058 Problem COPD (chronic obstructive pulmonary disease) J44.9 Active 82549489 Problem Dementia without behavioral disturbance, unspecified dementia type F03.90 Active 34255677 Problem Gastroparesis K31.84 Active 846839453 Problem Type 2 diabetes mellitus with diabetic neuropathy, without long-term current use of insulin E11.40 Active 16290787 Problem Osteoporosis M81.0 Active 53663911 Problem Atherosclerosis of lime artery of both lower extremities with intermittent claudication I70.213 Active 953484851050816 Problem Hyperlipidemia E78.5 Active 10207017 Problem Diabetic polyneuropathy associated with type 2 diabetes mellitus E11.42 Active 59932571 Problem Essential tremor G25.0 Active 28650188 Problem 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 Active 5306875640301 Problem Generalized anxiety disorder F41.1 Active 587452970 Problem Gastroesophageal reflux disease, esophagitis presence not specified K21.9 Active 913414597 Problem Coronary artery disease involving lime coronary artery of lime 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 I25.118 Active 5949651894513 Problem Postconcussion syndrome F07.81 Active 12610253 Problem Chronic pain syndrome G89.4 Active 359829114 Problem Migraine without aura and without status migrainosus, not intractable G43.009 Active 800995173 Problem Paroxysmal atrial fibrillation I48.0 Active 405372206 Problem Migraine without aura and with status migrainosus, not intractable G43.001 Active 851690464 Problem Cervicalgia M54.2 Active 5682918079332 Problem Acute exacerbation of chronic obstructive pulmonary disease (COPD) J44.1 Active 191622125 Problem Major depressive disorder, recurrent episode, moderate F33.1 Active 249274314 Problem Crohn''s disease without complication, unspecified gastrointestinal tract location K50.90 Active 88985617 Problem Chronic fatigue R53.82 Active 66349202 Problem Bipolar affective disorder, currently depressed, moderate F31.32 Active 849955878 ALLERGIES No Information ENCOUNTERS Encounter Location Date Diagnosis [id number] [facility] [id number] [address] Nov, [facility] [id number] [address] Nov, [id number] [address] Oct, [facility] [id number] [address] Oct, Bipolar affective disorder, currently depressed, moderate F31.32 ; Vascular dementia without behavioral disturbance F01.50 and Generalized anxiety disorder F41.1 [facility] [id number] [place] [address] 73693- 7220 Oct, [facility] [id number] [place] [address] 88130- 0884 Oct, [facility] [id number] [place] [address] 31430- 1864 Oct, Edema of both legs R60.0 [facility] [id number] [place] [address] 48592- 5426 Oct, [facility] [id number] [place] [address] 30704- 8728 Sep, [facility] [id number] [place] [address] 29636- 4412 Sep, [facility] [id number] [place] [address] 49521- 7956 Sep, [facility] [id number] [place] [address] 11905- 8614 Sep, Encounter for well woman exam with routine gynecological exam Z01.419 ; Screening for STDs (sexually transmitted diseases) Z11.3 ; Screening breast examination Z12.31 and Overweight (BMI 25.0-29.9) E66.3 [facility] [address] [address] 0429 Sep, [facility] [id number] [address] 2211 Sep, [facility] [id number] [place] [address] 28088- 7691 Sep, [facility] [id number] [place] [address] 73033- 5144 August, [facility] [id number] [address] 6246 August, [facility] [id number] [address] 1654 August, Type 2 diabetes mellitus with diabetic neuropathy, without long-term current use of insulin E11.40 and Sprain of right ankle, unspecified ligament, initial encounter S93.401A [facility] [id number] [address] 1[address] August, [facility] [id number] [place] [address] 14862- 8834 August, [facility] [id number] [place] [address] 62350- 2345 August, [facility] [id number] [place] [address] 55299- 2882 August, Gastroesophageal reflux disease, esophagitis presence not specified K21.9 [facility] [id number] [place] [address] 07524- 7733 August, [facility] [id number] [place] [address] 34130- 0445 August, [facility] [id number] [place] [address] 81744- 2193 August, [facility] [id number] [place] [address] 51097- 6204 August, Type 2 diabetes mellitus with diabetic neuropathy, without long-term current use of insulin E11.40 and Elevated liver enzymes R74.8 [facility] [address] [place] [address] 92184- 6958 Jul, [facility] [id number] [place] [address] 86696- 2935 Jul, Cough R05 [facility] [address] [place] [address] 35579- 7746 Jul, [facility] [address] [address]- 5307 Jul, [facility] [id number] [place] [address] 39621- 9667 Jul, Bipolar affective disorder, currently depressed, moderate F31.32 ; Vascular dementia without behavioral disturbance F01.50 and Generalized anxiety disorder F41.1 [facility] [id number] [place] [address] 27103- 6361 Jul, [facility] [address] 57652- 1421 Jul, Type 2 diabetes mellitus with diabetic neuropathy, without long-term current use of insulin E11.40 and Elevated liver enzymes R74.8 [facility] [address] 76615- 4747 Jul, [facility] [id number] [place] [address] 70522- 0829 Jul, [facility] [id number] [place] [address] 14269- 8085 Jul, [facility] [id number] [place] [address] 60446- 2384 Jul, Post-menopausal Z78.0 [facility] [address] 43216- 5261 Jul, Stress incontinence of urine N39.3 [facility] [id number] [place] [address] 72356- 4034 Jul, [facility] [id number] [place] [address] 45877- 7330 Jul, [facility] [id number] [place] [address] 71636- 7554 Jul, Stress incontinence of urine N39.3 and Cough R05 [facility] [id number] [place] [address] 27071- 7045 Jul, [facility] [id number] [place] [address] 26690- 8890 Jul, [facility] [id number] [place] [address] 01534- 7896 Jul, [facility] [id number] [place] [address] 08331- 1886 Jul, Gastroesophageal reflux disease, esophagitis presence not specified K21.9 [facility] [address] [place] [address] 13179- 8436 Jun, Diabetic polyneuropathy associated with type 2 diabetes mellitus E11.42 [facility] [id number] [place] [address] 38686- 0925 Jun, Diabetic polyneuropathy associated with type 2 diabetes mellitus E11.42 ; Coronary artery disease involving lime coronary artery of lime 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 I25.118 and Paroxysmal atrial fibrillation I48.0 [place] [id number] [place] [address] 09405- 2370 Jun, [place] [id number] [place] [address] 01474- 8037 Jun, [facility] [id number] [place] [address] 12412 254 Jun, Gastroenteritis K52.9 [facility] [id number] [place] [address] 73788 2546 Jun, Gastroenteritis K52.9 [facility] [address] [place] [address] 63814 254 Jun, [facility] [id number] [place] [address] 62950 2540 Jun, [facility] [address] [place] [address] 05287- 2605 Jun, Sprain of right ankle, unspecified ligament, initial encounter S93.401A ; Type 2 diabetes mellitus with diabetic neuropathy, without long-term current use of insulin E11.40 ; Atherosclerosis of lime artery of both lower extremities with intermittent claudication I70.213 ; 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 ; Chronic atrial fibrillation I48.2 and Crohn''s disease without complication, unspecified gastrointestinal tract location K50.90 [facility] [address] [place] [address] 01498 -0270 17 Jun, 2017 Chronic obstructive pulmonary disease with acute lower respiratory infection J44.0 and Cough R05 [facility] [id number] [place] [address] 10902- 5950 Jun, [facility] [id number] [place] [address] 83636- 0197 Jun, Coughing R05 ; Unspecified atherosclerosis of lime arteries of extremities, unspecified extremity I70.209 ; Type 2 diabetes mellitus with diabetic peripheral angiopathy without gangrene E11.51 ; Crohn''s disease without complication, unspecified gastrointestinal tract location K50.90 ; Other chronic pancreatitis K86.1 and Chronic atrial fibrillation I48.2 [facility] [id number] [place] [address] 55934 -7661 Jun, [place] [id number] [place] [address] 17483- 4914 Jun, Bipolar affective disorder, currently depressed, moderate F31.32 ; Vascular dementia without behavioral disturbance F01.50 and Generalized anxiety disorder F41.1 [place] [id number] [place] [address] 68031- 1610 May, Generalized anxiety disorder F41.1 [place] [id number] [place] [address] 79629- 2785 May, [place] [id number] [place] [address] 86634- 8789 May, [place] [id number] [place] [address] 61845- 5814 15 May, 2017 Coughing R05 [place] [id number] [place] [address] 71803- 0029 09 May, 2017 [place] [id number] [place] [address] 36088- 7566 May, Bipolar affective disorder, currently depressed, moderate F31.32 ; Vascular dementia without behavioral disturbance F01.50 and Generalized anxiety disorder F41.1 [place] [id number] [place] [address] 69988- 5458 Apr, Generalized anxiety disorder F41.1 [place] [id number] [place] [address] 95127- 0618 Apr, [place] [id number] [place] [address] 33897- 3051 Apr, Vascular dementia without behavioral disturbance F01.50 ; Generalized anxiety disorder F41.1 and Bipolar affective disorder, currently depressed, moderate F31.32 [address] [id number] [place] [address] 17591- 2011 Apr, Generalized anxiety disorder F41.1 [facility] [id number] [place] [address] 78421 -3850 Apr, Cough R05 and Acute exacerbation of chronic obstructive pulmonary disease (COPD) J44.1 [address] [id number] [place] [address] 79788- 8820 Apr, [facility] [id number] [place] [address] 55092 -5351 Mar, Cough R05 and Cigarette nicotine dependence without complication F17.210 [place] [id number] [place] [address] 64303- 0217 Mar, [place] [id number] [place] [address] 55479- 4347 Feb, Generalized anxiety disorder F41.1 ; Major depressive disorder, recurrent episode, moderate F33.1 ; Vascular dementia without behavioral disturbance F01.50 and Unspecified psychosis F29 [place] [id number] [place] [address] 98128- 8401 Feb, [place] [id number] [place] [address] 38880- 9970 Feb, [place] [id number] [place] [address] 37917- 5431 Feb, Generalized anxiety disorder F41.1 [place] [id number] [place] [address] 31150- 7938 Feb, Generalized anxiety disorder F41.1 [place] [address] 96092- 1886 Feb, Dizziness R42 ; Chronic fatigue R53.82 ; Postconcussion syndrome F07.81 ; Fall, initial encounter W19.XXXA and Disorientation R41.0 [place] [address] 41339- 3298 Feb, Postconcussion syndrome F07.81 ; Injury of head, initial encounter S09.90XA ; Fall, initial encounter W19.XXXA ; Disorientation R41.0 and Acute cystitis with hematuria N30.01 [place] [address] 11400- 1723 Jan, Gastroesophageal reflux disease, esophagitis presence not specified K21.9 ; Post-menopausal Z78.0 and Migraine without aura and without status migrainosus, not intractable G43.009 [place] [id number] [place] [address] 54448- 8933 Jan, [place] [id number] [place] [address] 11185- 0900 Jan, Generalized anxiety disorder F41.1 ; Major depressive disorder, recurrent episode, moderate F33.1 ; Vascular dementia without behavioral disturbance F01.50 and Unspecified psychosis F29 [place] [address] 46997- 6343 Jan, Pneumonia of left lower lobe due to infectious organism J18.1 [place] [id number] [place] [address] 57553- 3472 Jan, Migraine without aura and with status migrainosus, not intractable G43.001 [facility] [address], [place] [address] 04 Jan, 2017 Migraine without aura and without status migrainosus, not intractable G43.009 [facility] [address] [place] [address] 85615- 2970 19 Dec, 2016 Hematoma T14.8 [facility] [id number] [place] [address] 62459- 5493 Dec, [facility] [id number] [place] [address] 01568 -1361 Nov, Fatigue, unspecified type R53.83 [place] [id number] [place] [address] 18292- 3080 Nov, Scabies B86 and Coronary artery disease involving lime coronary artery of lime 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 I25.118 [place] [id number] [place] [address] 99740- 0930 Nov, [facility] [id number] [place] [address] 70829- 4253 Nov, [place] [id number] [place] [address] 65377- 1625 Oct, [place] [id number] [place] [address] 80746- 2763 Oct, Generalized anxiety disorder F41.1 and Major depressive disorder, recurrent episode, moderate F33.1 [facility] [address] [place] [address] 53650- 5027 Oct, Cramp of both lower extremities R25.2 [place] [id number] [place] [address] 15816- 1592 Oct, Leg cramps R25.2 [place] [id number] [place] [address] 38364- 9215 Oct, Chronic pain syndrome G89.4 [place] [address] [address]- 9771 17 Oct, 2016 [facility] [address] [place] [address] 55170- 2355 14 Oct, 2016 [facility] [id number] [place] [address] 04565- 7940 11 Oct, 2016 Routine gynecological examination Z01.419 and Screening for breast cancer Z12.31 [place] [id number] [place] [address] 85785- 5647 28 Sep, 2016 Diarrhea R19.7 [place] [id number] [place] [address] 44082- 6640 Sep, Back pain M54.9 [place] [id number] [place] [address] 86987- 2792 Sep, [place] [id number] [place] [address] 67675- 9174 Sep, [facility] [id number] [place] [address] 85750 -3086 August, Xeroderma Q80.9 [place] [id number] [place] [address] 77416- 3297 August, Dementia without behavioral disturbance, unspecified dementia type F03.90 [place] [id number] [place] [address] 84825- 7607 August, Chronic pain syndrome G89.4 [place] [id number] [place] [address] 24064- 3450 August, [facility] [id number] [place] [address] 34479- 0156 August, Hyperlipidemia E78.5 ; Other fatigue R53.83 and Other specified hypotension I95.89 [facility] [address], [place] [address] August, Dysuria R30.0 ; Other fatigue R53.83 and Other specified hypotension I95.89 [facility] [id number] [place] [address] 49166- 2922 August, [facility] [address] 17377- 8183 Jul, Pain in left knee M25.562 and Gastroenteritis K52.9 [facility] [address] 67635- 9174 Jul, [facility] [address] 58580- 8797 Jul, Diarrhea R19.7 [facility] [address] 02227 -3747 Jul, Spider bite, accidental or unintentional, initial encounter T63.301A [place] [address] 65563- 8912 Jul, Primary osteoarthritis of right knee M17.11 and Arthritis M19.90 [facility] [address] 87924- 4437 Jul, Generalized anxiety disorder F41.1 and Major depressive disorder, recurrent episode, moderate F33.1 [facility] [id number] [place] [address] 27819- 2019 Jul, Type 2 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 and Temporal headache R51 [facility] [id number] [place] [address] 78622- 1246 Jul, Back pain M54.9 [facility] [id number] [place] [address] 32539- 9952 Jul, [facility] [address] 21997- 8289 Jul, [facility] [id number] [place] [address] 43254- 9033 Jun, Nausea R11.0 [facility] [address] [place] [address] -[address] Jun, Acute suppurative otitis media of both ears without spontaneous rupture of tympanic membranes, recurrence not specified H66.003 and COPD exacerbation J44.1 [facility] [address] 96819- 8209 Jun, Generalized anxiety disorder F41.1 [place] [address] 43129- 4558 16 Jun, 2016 [facility] [address] 63516 -3096 Jun, [facility] [address] 51649 -0953 Jun, Shortness of breath R06.02 and COPD exacerbation J44.1 [place] [address] 70557- 9623 Jun, Eczema, unspecified type L30.9 [place] [address] 59698- 7869 Jun, [place] [address] 70746- 3002 May, [place] [id number] [place] [address] 77530- 3031 May, Muscle cramping R25.2 [place] [id number] [place] [address] 91038- 3099 May, [place] [address] 58866- 4658 Apr, Diarrhea R19.7 [place] [address] 89712- 6459 Apr, [place] [id number] [place] [address] 11078- 7858 Apr, Chronic pain syndrome G89.4 [place] [id number] [place] [address] 28116- 5988 16 Apr, 2016 Cramp of both lower extremities R25.2 and Vascular dementia without behavioral disturbance F01.50 [place] [address] 32832- 6275 Apr, Type 2 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 and Cigarette nicotine dependence without complication F17.210 [place] [address] 12698- 2826 Mar, Generalized anxiety disorder F41.1 [place] [address] 12462- 1234 Feb, Generalized anxiety disorder F41.1 and Major depressive disorder, recurrent episode, moderate F33.1 [place] [place] [address] [address]- [address] Feb, [facility] [address] [address] -[address]178 Feb, Dysuria R30.0 and Acute cystitis with hematuria N30.01 [place] [address] 9[address]35- 0601 Jan, [place] [address] 8[address]91- 2016 Jan, [place] [address] 79797- 2361 Jan, [place] [address] 34852- 1035 Jan, [facility] [address] 5[address]36 -3119 Jan, Wasp sting, accidental or unintentional, initial encounter T63.461A [place] [address] 15811- 1297 06 Jan, 2016 Encounter for immunization Z23 [place] [address] [address]75- 9903 Jan, [facility] [address] [address] 66[address] Jan, [facility] [address] [place] [id number] [place] [address] 18463- 6825 28 Dec, 2015 Generalized anxiety disorder F41.1 and Major depressive disorder, recurrent episode, moderate F33.1 [facility] [address] [place] [id number] [place] [address] 01778- 5160 21 Dec, 2015 Routine gynecological examination Z01.419 ; Postmenopausal Z78.0 ; Screening breast examination Z12.39 ; Osteopenia M85.80 and Breast cancer screening Z12.39 [facility] [address] [place] [id number] [place] [address] 51587- 8262 20 Dec, 2015 [facility] [address] [place] [id number] [place] [address] 23659- 1800 19 Dec, 2015 [facility] [id number] [place] [address] 84689- 0527 16 Dec, 2015 [facility] [id number] [place] [address] 55706- 9489 16 Dec, 2015 [facility] [address] [id number] [place] [address] 27012- 6877 14 Dec, 2015 [facility] [address] [place] [address] 36089- 6813 Dec, [facility] [address] [id number] [place] [address] 69526- 6781 Nov, [facility] [address] [place] [address] 47968 -1192 Nov, Cough R05 ; Other viral agents as the cause of diseases classified elsewhere B97.89 and Acute upper respiratory infection, unspecified J06.9 [facility] [address], [place] [address] 5119 Nov, [facility] [address] [id number] [place] [address] 83664- 0744 Nov, [facility] [address], [place] [address]- 7948 Nov, [facility] [address], [place] [address]- 6375 Nov, [facility] [address], [place] [address]- 9333 Nov, [facility] [address] [id number] [place] [address] 95664- 2640 Oct, [facility] [id number] [place] [address] 85573- 6498 Oct, [facility] [id number] [address]- 7521 Oct, [facility] [id number] [place] [address] 56814- 1927 Oct, Chronic pain syndrome G89.4 [facility] [address], [place] [address]- 9614 Sep, Generalized anxiety disorder F41.1 and Major depressive disorder, recurrent episode, moderate F33.1 [facility] [address], [place] [address]- 7396 Sep, [facility] [address], [place] [address]- 1051 Sep, [facility] [address], [place] [address]- 5927 14 Sep, 2015 Generalized anxiety disorder F41.1 [facility] [address], [place] [address]- 2314 13 Sep, 2015 Cramp of both lower extremities R25.2 and Cervicalgia M54.2 [facility] [address], [place] [address]- 6114 06 Sep, 2015 Generalized anxiety disorder F41.1 [facility] [address] [place] [id number] [address]- 4979 Sep, [facility] IN [facility] [address] [place] [id number] [place] [address] 66118 -3608 August, Rash R21 ; Itching L29.9 and Allergic response, subsequent encounter T78.40XD [facility] [address] [place] [id number] [place] [address] 63551- 8069 August, Primary insomnia F51.01 [facility] IN [facility] [address] [place] [id number] [place] [address] 15506 -1158 August, Rash R21 ; Itching L29.9 and Allergic response, initial encounter T78.40XA [place] [address] [place] [id number] [place] [address] 98965- 6004 August, [place] [address] [place] [place] [id number] [place] [address] 98232- 9112 August, Cramp of both lower extremities R25.2 [place] [address] [place] [id number] [place] [address] 36335- 6345 August, Back pain M54.9 [place] [address] [place] [place] [id number] [place] [address] 36850- 8011 August, [place] [address] [place] [id number] [place] [address] 71839- 6107 August, [facility] [address] [place] [id number] [place] [address] 45841 -5494 August, Cramp of both lower extremities R25.2 [place] [address] [place] [id number] [place] [address] 84747- 3527 August, [place] [address] [place] [id number] [place] [address] 91616- 1944 August, Syncope R55 ; Paroxysmal atrial fibrillation I48.0 ; Dementia without behavioral disturbance, unspecified dementia type F03.90 and Chronic pain syndrome G89.4 [place] [address] [place] [id number] [place] [address] 49467- 4401 August, Type 2 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 and Syncope R55 [facility] [address] [place] [id number] [place] [address] 01558- 2344 Jul, [facility] [address] [place] [id number] [place] [address] 18864- 1736 Jul, [facility] [address] [id number] [place] [address] 24533- 5813 Jul, [facility] [address] [id number] [place] [address] 54832- 2935 Jul, [facility] [address] [place] [id number] [place] [address] 55168- 4686 Jul, [facility] [address] [id number] [place] [address] 74481- 1141 Jul, UTI (urinary tract infection) N39.0 [facility] [address] [place] [id number] [place] [address] 87150- 4882 Jul, [facility] [address] [place] [place] [id number] [place] [address] 36601- 3909 Jul, Major depressive disorder, recurrent episode, moderate F33.1 and Generalized anxiety disorder F41.1 [facility] [address] [place] [place] [id number] [place] [address] 20218- 0805 Jul, Generalized anxiety disorder F41.1 [facility] [address] [place] [address] 54928- 1931 Jul, Diarrhea R19.7 [facility] [address] [place] [address] 98833- 9626 Jul, [facility] [id number] [place] [address] 02983- 4756 Jun, [facility] [id number] [place] [address] 85935- 8802 Jun, Eczema L30.9 [facility] [address], [place] [address]- 9056 Jun, [facility] [address], [place] [address]- 9746 Jun, COPD (chronic obstructive pulmonary disease) J44.9 [facility] [address] [address]- 5806 Jun, [facility] [address] [place] [address] 37632- 8073 Jun, Major depressive disorder, recurrent episode, moderate F33.1 and Generalized anxiety disorder F41.1 [facility] [address], [place] [address]- 3846 May, [facility] [address], [place] [address]- 3496 May, UTI (urinary tract infection) N39.0 [facility] [address] [address]- 2508 May, [facility] [address], [place] [address]- 1304 May, [facility] [address], [place] [address]- 1434 May, [facility] [address], [place] [address]- 0536 May, [facility] [address], [place] [address]- 1490 Apr, Major depressive disorder, recurrent episode, moderate F33.1 and Generalized anxiety disorder F41.1 [facility] [address], [place] [address]- 1870 Apr, COPD (chronic obstructive pulmonary disease) J44.9 [facility] [address] [address]- 2406 Apr, [facility] [id number] [address]- 3011 Apr, Atrial flutter I48.92 [facility] [id number] [place] [address] 59879- 0244 Apr, [facility] [id number] [place] [address] 91654- 4940 Apr, [facility] [id number] [place] [address] 31696- 9053 Mar, [facility] [id number] [place] [address] 54718- 8219 Mar, [facility] [id number] [place] [address] 75470- 5637 Mar, [facility] [id number] [place] [address] 44359- 5259 Mar, Hyperlipidemia E78.5 ; Type 2 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 ; Major depressive disorder, recurrent episode, moderate F33.1 and Chronic pain syndrome G89.4 [facility] [address] [id number] [place] [address] 69033- 5909 Mar, [facility] [id number] [place] [address] 89720- 5835 Mar, [facility] [id number] [place] [address] 28255- 4861 Mar, [facility] [id number] [place] [address] 29396- 8848 Mar, [facility] [address] [place] [address] 43592- 5354 Feb, COPD (chronic obstructive pulmonary disease) J44.9 and Back pain M54.9 [facility] [address], [place] [address]- 1391 Feb, [facility] [id number] [place] [address] 82254- 5617 Feb, [facility] [address], [place] [address]- 3793 Feb, [facility] [id number] [place] [address] 15115- 6214 Feb, [facility] [address], [place] [address]- 3177 Feb, [facility] [id number] [place] [address] 30272- 7551 Feb, [facility] [id number] [place] [address] 76618- 8939 Feb, [facility] [id number] [place] [address] 52906- 0109 Feb, [facility] [id number] [place] [address] 67489- 7005 Feb, Diabetes E11.9 ; Back pain M54.9 and COPD (chronic obstructive pulmonary disease) J44.9 [facility] [address] [place] [address] 74360- 8650 Jan, [facility] [id number] [place] [address] 16203- 5343 Jan, Major depression, recurrent F33.9 and Generalized anxiety disorder F41.1 [facility] [address] [place] [address] 32428- 4067 Jan, Chronic pain G89.29 [facility] [address], [place] [address]- 5082 Jan, [facility] [id number] [place] [address] 12384- 8101 Jan, [facility] [id number] [place] [address] 20427- 5427 Jan, [facility] [address], [place] [address]- 0802 Jan, [facility] [id number] [place] [address] 99212- 7740 Jan, Nicotine dependence F17.200 [facility] [address] 12432- 2952 Jan, Nicotine dependence F17.200 and Back pain M54.9 [facility] [id number] [place] [address] 81139- 3064 Jan, [facility] [id number] [place] [address] 69302- 5046 28 Dec, 2014 [facility] [id number] [place] [address] 89938- 8649 25 Dec, 2014 Anxiety, generalized 300.02 and Major depression, recurrent 296.30 [facility] [id number] [place] [address] 42176- 7620 24 Dec, 2014 [facility] [id number] [place] [address] 02102- 0813 21 Dec, 2014 [facility] [id number] [place] [address] 35262- 2031 17 Dec, 2014 [facility] [id number] [place] [address] 38631- 1194 15 Dec, 2014 [facility] [id number] [place] [address] 35399- 6219 14 Dec, 2014 [facility] [id number] [place] [address] 74649- 5873 11 Dec, 2014 [facility] [id number] [place] [address] 12804- 0154 10 Dec, 2014 [facility] [id number] [place] [address] 50042- 4295 08 Dec, 2014 Skin tear 879.8 [facility] [address] [place] [address] 55414- 2733 08 Dec, 2014 Routine gynecological examination V72.31 ; Breast cancer screening V76.10 and Family history of breast cancer in first degree relative V16.3 [facility] [address], [place] [address]- 1797 Dec, [facility] [address] [place] [address] 07890- 2603 Dec, [facility] [address], [place] [address]- 0052 Nov, [facility] [id number] [place] [address] 90441- 2819 Nov, [facility] [address] [place] [address] 35245- 0480 Nov, Poor balance 781.99 and Vascular dementia, uncomplicated 290.40 [facility] [id number] [place] [address] 78595- 1274 Nov, [facility] [id number] [place] [address] 80837- 6683 Nov, Major depression, recurrent 296.30 and Anxiety, generalized 300.02 [facility] [id number] [place] [address] 70791- 0475 Nov, [facility] [id number] [place] [address] 54105- 8287 Nov, [facility] [address] [address]- 5616 Nov, [facility] [address] [place] [address] 13075- 5826 Nov, [facility] [address] [address]- 0134 Nov, Vascular dementia, uncomplicated 290.40 and Lumbago 724.2 [facility] [address] [address]- 1143 Nov, [facility] [address] [place] [address] 65334- 7112 Nov, [facility] [address] [address]- 5815 Nov, [facility] [address], [place] [address]- 0235 Oct, [facility] [address] [address]- 6447 Oct, [facility] [id number] [place] [address] 86858- 5500 Oct, [facility] [address], [place] [address]- 0406 Oct, COPD (chronic obstructive pulmonary disease) 496 and Hyperlipidemia 272.4 [facility] [address] [address]- 1406 Oct, Major depression, recurrent 296.30 and Anxiety, generalized 300.02 [facility] [id number] [address]- 5148 Oct, [facility] [address], [place] [address]- 0480 Oct, [facility] [address], [place] [address]- 3631 Oct, [facility] [address], [place] [address]- 8729 Sep, Lumbago 724.2 and Anxiety state, unspecified 300.00 [facility] [address] [address]- 5158 Sep, [facility] [address], [place] [address]- 2085 Sep, [facility] [address], [place] [address]- 0641 August, [facility] [id number] [address]- 3936 August, Major depression, recurrent 296.30 ; Anxiety, generalized 300.02 and No condition on [place] II V71.09 [facility] [id number] [place] [address]- 4409 August, [facility] [address] [facility] [id number] [place] 7586 August, [facility] [address] [address]- 1725 Jul, [facility] [address] [facility] [id number] [place] [address]- 3903 Jul, [facility] [address] [place] [address]- 8507 Jul, [facility] [id number] [place] [address]- 3134 Jun, [facility] [address] [place] [address]- 0191 Jun, [facility] [id number] [address]- 7561 Jun, [facility] [address] [place] [address]- 5451 Jun, [facility] [id number] [address]- 1211 Jun, [facility] [address] [place] [address]- 4873 Jun, [facility] [id number] [address]- 3518 23 Jun, 2014 [facility] [id number]- 4504 17 Jun, 2014 [facility] [address] [facility] [id number] 9147 Jun, [facility] [id number] 4392 Jun, [facility] [place] [facility] [address] [id number] [place] [address]- 6366 10 Jun, 2014 [facility] [place] [facility] [address] [id number] [place] [address]- 0983 10 Jun, 2014 [facility] [place] [facility] [address] [id number] [place] [address]- 9690 07 Jun, 2014 [facility] [place] [facility] [address] [id number] [place] [address]- 7160 07 Jun, 2014 [facility] [place] [facility] [address] [id number] [place] [address]- 0548 Jun, [facility] [place] [facility] [address] [id number] [place] [address]- 6606 Jun, 2014 [facility] [place] [facility] [address] [id number] [place] [address]- 1653 May, [facility] [place] [facility] [address] [id number] [place] [address]- 5271 May, 2014 [facility] [place] [facility] [address] [id number] [place] [address]- 7205 May, [facility] [place] [facility] [address] [facility] [id number] [place] [address]- 6937 May, 2014 [facility] [place] [facility] [address] [facility] [id number] [place] [address] May, 2014 [facility] [place] [facility] [address] [id number] [place] [address] May, 2014 [facility] [place] [facility] [address] [id number] [place] [address] May, 2014 [facility] [place] [facility] [address] [id number] [place] [address] 12 May, 2014 [facility] [place] [facility] [address] [facility] [id number] [place] [address] May, 2014 [facility] [place] [facility] [address] [facility] [id number] [place] [address] May, 2014 [facility] [place] [facility] [address] [id number] [place] [address] May, 2014 [facility] [place] [facility] [address] [id number] [place] [address] May, 2014 [facility] [place] [facility] [address] [id number] [place] [address] May, 2014 [facility] [place] [facility] [address] [id number] [place] [address] May, [facility] [place] [facility] [address] [id number] [place] [address] Apr, [facility] [place] [facility] [address] [id number] [place] [address] Apr, [facility] [place] [facility] [address] [id number] [place] [address] Apr, [facility] [place] [facility] [address] [id number] [place] [address] Apr, [facility] [place] [facility] [address] [id number] [place] [address] Apr, [facility] [place] [facility] [address] [id number] [place] [address] Apr, [facility] [place] [facility] [address] [id number] [place] [address] Apr, [facility] [place] [facility] [address] [id number] [place] [address] Apr, [facility] [place] [facility] [address] [id number] [place] [address] Apr, [facility] [place] [facility] [address] [id number] [place] [address] Apr, [facility] [place] [facility] [address] [id number] [place] [address] Apr, [facility] [place] [facility] [address] [id number] [place] [address] Apr, [facility] [place] [facility] [address] [id number] [place] [address] Mar, [facility] [place] [facility] [address] [id number] [place] [address] 31 Mar, 2014 [facility] [place] [facility] [address] [id number] [place] [address] 30 Mar, 2014 [facility] [place] [facility] [address] [id number] [place] [address] 30 Mar, 2014 [facility] [place] [facility] [address] [id number] [place] [address] Mar, [facility] [place] [facility] [address] [id number] [place] [address] Mar, [facility] [place] [facility] [address] [id number] [place] [address] Mar, [facility] [place] [facility] [address] [id number] [place] [address] 19 Mar, 2014 [facility] [place] [facility] [address] [id number] [place] [address] 15 Mar, 2014 [facility] [place] [facility] [address] [id number] [place] [address] 15 Mar, 2014 [facility] [place] [facility] [address] [id number] [place] [address] 15 Mar, 2014 [facility] [place] [facility] [address] [id number] [place] [address] 5312 15 Mar, 2014 [facility] [place] [facility] [address] [id number] [place] [address] 2598 15 Mar, 2014 [facility] [place] [facility] [address] [id number] [place] [address] 6093 15 Mar, 2014 [facility] [place] [facility] [address] [id number] [place] [address] 9008 Mar, [facility] [place] [facility] [address] [id number] [place] [address] 8131 Mar, [facility] [place] [facility] [address] [id number] [place] [address]- 0218 Mar, [facility] [place] [facility] [address] [id number] [place] [address] 6173 Mar, [facility] [place] [facility] [address] [id number] [place] [address]- 0191 Mar, [facility] [place] [facility] [address] [id number] [place] [address] 4989 Mar, [facility] [place] [facility] [address] [id number] [place] [address]- 5573 Feb, [facility] [place] [facility] [address] [id number] [place] [address]- 8591 Feb, [facility] [place] [facility] [address] [id number] [place] [address]- 8152 Feb, [facility] [place] [facility] [address] [id number] [place] [address]- 7676 Feb, [facility] [place] [facility] [address] [id number] [place] [address]- 7781 Feb, [facility] [place] [facility] [address] [id number] [place] [address]- 3313 Feb, [facility] [place] [facility] [address] [id number], [place] [address]- 5310 Feb, [facility] [place] [facility] [address] [id number] [place] [address]- 6523 Feb, [facility] [place] [facility] [address] [id number] [place] [address]- 1677 Feb, [facility] [place] [facility] [address] [id number], [place] [address]- 7479 Feb, [facility] [place] [facility] [address] [id number] [place] [address]- 0358 Feb, [facility] [place] [facility] [address] [id number] [place] [address] Feb, [facility] [place] [facility] [address] [id number] [place] [address] Feb, [facility] [place] [facility] [address] [id number] [place] [address]- 9957 Feb, [facility] [place] [facility] [address] [id number] [place] [address]- 5383 Feb, [facility] [place] [facility] [address] [id number] [place] [address]- 6272 Feb, [facility] [place] [facility] [address] [id number] [place] [address]- 4861 Feb, [facility] [place] [facility] [address] [id number] [place] [address]- 5413 Jan, [facility] [place] [facility] [address] [id number] [place] [address]- 8886 Jan, [facility] [place] [facility] [address] [id number] [place] [address]- 8860 Jan, [facility] [place] [facility] [address] [id number] [place] [address]- 5049 Jan, [facility] [place] [facility] [address] [id number] [place] [address]- 8360 Jan, [facility] [place] [facility] [address] [id number] [place] [address]- 9606 Jan, [facility] [place] [facility] [address] [id number] [place] [address]- 8860 16 Jan, 2014 [facility] [place] [facility] [address] [id number] [place] [address] 16 Jan, 2014 [facility] [place] [facility] [address] [id number] [place] [address]- 2144 Jan, [facility] [place] [facility] [address] [id number] [place] [address]- 1831 Jan, [facility] [place] [facility] [address] [id number] [place] [address]- 8915 Jan, [facility] [place] [facility] [address] [id number] [place] [address]- 6378 Dec, [facility] [place] [facility] [address] [id number] [place] [address]- 7974 Dec, [facility] [place] [facility] [address] [id number] [place] [address]- 0312 Nov, [facility] [place] [facility] [address] [id number] [place] [address]- 0385 Nov, [facility] [place] [facility] [address] [id number] [place] [address]- 3874 Nov, [facility] [place] [facility] [address] [id number] [place] [address]- 0193 Nov, [facility] [place] [facility] [address] [id number] [place] [address]- 2799 Nov, [facility] [place] [facility] [address] [id number] [place] [address]- 2067 Nov, [facility] [place] [facility] [address] [id number], [place] [address]- 7446 Nov, [facility] [place] [facility] [address] [id number], [place] [address]- 0893 Oct, [facility] [place] [facility] [address] [id number] [place] [address]- 7150 Oct, [facility] [place] [facility] [address] [id number], [place] [address]- 5169 Oct, [facility] [place] [facility] [address] [id number] [place] [address] Oct, [facility] [place] [facility] [address] [id number] [place] [address]- 1789 30 Sep, 2013 [facility] [place] [facility] [address] [id number] [place] [address]- 7000 Sep, [facility] [place] [facility] [address] [id number] [place] [address]- 0571 Sep, [facility] [place] [facility] [address] [id number] [place] [address]- 2193 Sep, [facility] [place] [facility] [address] [id number] [place] [address]- 1388 Sep, [facility] [place] [facility] [address] [id number] [place] [address]- 9783 Sep, [facility] [place] [facility] [address] [id number] [place] [address]- 3122 Sep, [facility] [place] [facility] [address] [id number] [place] [address]- 1341 Sep, [facility] [place] [facility] [address] [id number] [place] [address]- 7234 Sep, [facility] [place] [facility] [address] [id number] [place] [address]- 9949 Sep, [facility] [place] [facility] [address] [id number] [place] [address]- 7973 Sep, [facility] [place] [facility] [address] [id number] [place] [address]- 7435 Sep, [facility] [place] [facility] [address] [id number] [place] [address]- 3445 Sep, [facility] [place] [facility] [address] [id number] [place] [address]- 3769 Sep, [facility] [place] [facility] [address] [id number] [place] [address]- 9492 August, [facility] [place] [facility] [address] [id number] [place] [address]- 9814 August, [facility] [place] [facility] [address] [id number] [place] [address]- 0099 August, [facility] [address] [id number] [place] [address]- 8159 August, [facility] [address] [id number] [place] [address]- 1541 August, [facility] [address] [id number] [place] [address]- 5582 August, [facility] [address] [id number] [place] [address]- 2520 August, [facility] [address] [id number] [place] [address]- 7088 August, [facility] [address] [id number] [place] [address]- 3270 August, [facility] [address] [id number] [place] [address]- 8367 August, [facility] [address] [id number] [place] [address]- 4332 August, [facility] [address] [id number] [place] [address]- 4612 August, [facility] [address] [id number] [place] [address]- 2630 August, [facility] [address] [id number] [place] [address]- 1536 August, [facility] [place] [facility] [address] [id number] [place] [address]- 9376 August, [facility] [place] [facility] [address] [id number] [place] [address]- 5654 August, [facility] [place] [facility] [address] [id number] [place] [address]- 5178 August, [facility] [place] [facility] [address] [id number] [place] [address]- 0909 August, [facility] [place] [facility] [address] [id number] [place]17 August, [facility] [place] [facility] [address] [id number] [place] [address]- 3951 Jul, [facility] [place] [facility] [address] [id number] [place] [address]- 1409 Jul, [facility] [place] [facility] [address] [id number] [place] [address]- 0277 Jul, [facility] [place] [facility] [address] [id number] [place] [address]- 0467 Jul, [facility] [place] [facility] [address] [id number] [place] [address]- 5661 Jun, [facility] [place] [facility] [address] [id number] [place] [address]- 6990 Jun, [facility] [place] [facility] [address] [id number] [place] [address]- 1885 Jun, [facility] [place] [facility] [address] [id number] [place] [address]- 4533 Jun, [facility] [place] [facility] [address] [id number] [place] [address]- 8841 Jun, [facility] [place] [facility] [address] [id number] [place] [address]- 1854 Jun, [facility] [place] [facility] [address] [id number] [place] [address]- 5544 Jun, [facility] [place] [facility] [address] [id number] [place] [address]- 6778 Jun, [facility] [place] [facility] [address] [id number] [place] [address]- 8162 Jun, [facility] [place] [facility] [address] [id number] [place] [address]- 9541 Jun, [facility] [place] [facility] [address] [id number] [place] [address]- 0150 May, [facility] [place] [facility] [address] [id number] [place] [address]- 9156 May, [facility] [place] [facility] [address] [id number] [place] [address]- 3466 May, [facility] [place] [facility] [address] [id number] [place] [address]- 2457 May, [facility] [place] [facility] [address] [id number] [place] [address]- 2542 May, [facility] [place] [facility] [address] [id number] [place] [address]- 1016 May, [facility] [place] [facility] [address] [facility] [id number] [place] [address]- 5031 May, [facility] [place] [facility] [address] [facility] [id number] [place] [address]- 0818 May, [facility] [place] [facility] [address] [id number] [place] [address]- 1715 May, [facility] [place] [facility] [address] [facility] [id number] [place] [address]- 4197 May, [facility] [place] [facility] [address] [facility] [id number] [place] [address]- 2651 18 May, 2013 [facility] [place] [facility] [address] [facility] [id number] [place] [address]- 7857 17 May, 2013 [facility] [place] [facility] [address] [facility] [id number] [place] [address]- 2546 May, [facility] [place] [facility] [address] [id number] [place] [address]- 6421 May, [facility] [place] [facility] [address] [facility] [id number] [place] [address]- 1976 10 May, 2013 [facility] [place] [facility] [address] [facility] [id number] [place] [address]- 3067 07 May, 2013 [facility] [address] [id number] [place] [address]- 8106 07 May, 2013 [facility] [address] [id number] [place] [address]- 9255 17 Apr, 2013 [facility] [address] [id number] [place] [address]- 6449 Apr, [facility] [place] [facility] [address] [id number] [place] [address]- 1224 Apr, [facility] [address] [id number] [place] [address]- 1864 Apr, [facility] [address] [id number] [place] [address]- 1476 Apr, [facility] [address] [id number] [place] [address]- 6376 Apr, [facility] [address] [id number] [place] [address]- 2479 Apr, [facility] [address] [id number] [place] [address]- 0472 Mar, [facility] [address] [id number] [place] [address]- 8770 Mar, [facility] [address] [id number] [place] [address]- 8166 Mar, [facility] [address] [id number] [place] [address]- 8798 Mar, [facility] [place] [facility] [address] [id number] [place] [address]- 7177 Mar, [facility] [place] [facility] [address] [id number] [place] [address]- 3816 Mar, [facility] [address] [id number] [place] [address]- 6218 Mar, [facility] [place] [facility] [address] [id number] [place] [address]- 8846 Mar, [facility] [place] [facility] [address] [id number] [place] [address]- 2128 Mar, [facility] [place] [facility] [address] [id number] [place] [address]- 3939 Mar, [facility] [place] [facility] [address] [id number] [place] [address]- 1851 Mar, [facility] [place] [facility] [address] [id number] [place] [address]- 4103 Feb, [facility] [place] [facility] [address] [id number] [place] [address]- 0332 Feb, [facility] [place] [facility] [address] [id number] [place] [address]- 9795 Feb, [facility] [place] [facility] [address] [id number] [place] [address]- 8951 20 Feb, 2013 [facility] [place] [facility] [address] [id number] [place] [address]- 1536 Feb, [facility] [place] [facility] [address] [id number] [place] [address]- 4226 19 Feb, 2013 [facility] [place] [facility] [address] [id number] [place] [address]- 1919 15 Feb, 2013 [facility] [place] [facility] [address] [id number], [place] [address]- 6251 14 Feb, 2013 [facility] [place] [facility] [address] [id number] [place] [address]- 0061 14 Feb, 2013 [facility] [place] [facility] [address] [id number], [place] [address]- 4856 13 Feb, 2013 [facility] [place] [facility] [address] [id number], [place] [address]- 8640 13 Feb, 2013 [facility] [place] [facility] [address] [id number], [place] [address]- 1465 Feb, [facility] [place] [facility] [address] [id number] [place] [address]- 7306 Feb, [facility] [place] [facility] [address] [id number] [place] [address]- 1082 Feb, [facility] [place] [facility] [address] [id number] [place] [address]- 8505 Feb, [facility] [place] [facility] [address] [id number] [place] [address]- 7964 Feb, [facility] [place] [facility] [address] [id number] [place] [address]- 3176 Jan, [facility] [place] [facility] [address] [id number] [place] [address]- 3388 Jan, [facility] [place] [facility] [address] [id number] [place] [address]- 1311 Jan, [facility] [place] [facility] [address] [id number] [place] [address]- 0211 Jan, [facility] [place] [facility] [address] [id number] [place] [address]- 0972 Jan, [facility] [place] [facility] [address] [id number] [place] [address]- 3276 Jan, [facility] [place] [facility] [address] [id number], [place] [address]- 8990 Jan, [facility] [place] [facility] [address] [id number], [place] [address]- 4340 Jan, [facility] [place] [facility] [address] [id number] [place] [address]- 2697 10 Jan, 2013 [facility] [place] [facility] [address] [id number] [place] [address]- 6965 27 Dec, 2012 [facility] [place] [facility] [address] [id number] [place] [address]- 5268 20 Dec, 2012 [facility] [place] [facility] [address] [id number] [place] [address]- 8979 19 Dec, 2012 [facility] [place] [facility] [address] [id number] [place] [address]- 2698 10 Dec, 2012 [facility] [place] [facility] [address] [id number] [place] [address]- 0116 04 Dec, 2012 [facility] [place] [facility] [address] [id number] [place] [address]- 5788 03 Dec, 2012 [facility] [place] [facility] [address] [id number] [place] [address]- 8816 Nov, [facility] [place] [facility] [address] [id number] [place] [address]- 4124 Nov, [facility] [place] [facility] [address] [id number] [place] [address]- 5777 Nov, [facility] [place] [facility] [address] [id number] [place] [address]- 2860 Nov, [facility] [place] [facility] [address] [id number] [place] [address]- 7884 Nov, [facility] [place] [facility] [address] [id number] [place] [address]- 0970 Nov, [facility] [place] [facility] [address] [id number] [place] [address]- 3905 Nov, [facility] [place] [facility] [address] [id number] [place] [address]- 0615 Nov, [facility] [place] [facility] [address] [id number] [place] [address]- 2540 14 Nov, 2012 [facility] [place] [facility] [address] [id number] [place] [address]- 5329 Nov, [facility] [place] [facility] [address] [id number] [place] [address]- 2546 Oct, [facility] [place] [facility] [address] [id number] [place] [address]- 2604 Oct, [facility] [place] [facility] [address] [id number] [place] [address]- 8293 Oct, [facility] [place] [facility] [address] [id number] [place] [address]- 2855 Oct, [facility] [place] [facility] [address] [id number] [place] [address]- 8643 Oct, [facility] [place] [facility] [address] [id number] [place] [address]- 2085 Oct, [facility] [place] [facility] [address] [id number] [place] [address]- 1449 Oct, [facility] [place] [facility] [address] [id number] [place] [address]- 7221 Oct, [facility] [place] [facility] [address] [id number] [place] [address]- 8410 Sep, [facility] [place] [facility] [address] [id number] [place] [address]- 2326 Sep, [facility] [place] [facility] [address] [id number] [place] [address]- 1703 Sep, [facility] [place] [facility] [address] [id number] [place] [address]- 9730 Sep, [facility] [place] [facility] [address] [id number] [place] [address]- 8492 Sep, [facility] [place] [facility] [address] [id number], [place] [address]- 9417 Sep, [facility] [place] [facility] [address] [id number] [place] [address]- 7483 Sep, [facility] [place] [facility] [address] [id number] [place] [address] Sep, [facility] [place] [facility] [address] [id number] [place] [address] August, [facility] [place] [facility] [address] [id number] [place] [address] August, [facility] [address] [id number] [place] [address] August, [facility] [facility] [address] [id number] [place] [address] August, [facility] [facility] [address] [id number] [place] [address] August, [facility] [facility] [address] [id number] [place] [address] Jul, [facility] [facility] [address] [id number] [place] [address] Jul, [facility] [facility] [address] [id number] [place] [address] Jul, [facility] [address] [id number] [place] [address] Jul, [facility] [facility] [address] [id number] [place] [address] Jul, [facility] [facility] [address] [id number] [place] [address] 7866 18 Jun, 2012 [facility] [facility] [address] [id number] [place] [address] 18 Jun, 2012 [facility] [facility] [address] [id number] [place] [address] 15 Jun, 2012 [facility] [facility] [address] [id number] [place] [address]- [address] 14 Jun, 2012 [facility] [place] [facility] [address] [id number] [place] [address]- [address] 12 Jun, 2012 [facility] [place] [facility] [address] [id number] [place] [address]- [address] 08 Jun, 2012 [facility] [address] [id number] [place] [address]- [address] 08 Jun, 2012 [facility] [address] [id number] [place] [address] Jun, [facility] [address] [id number] [place] [address] Jun, [facility] [address] [id number] [place] [address] May, [facility] [address] [id number] [place] [address] May, [facility] [address] [id number] [place] [address] May, [facility] [address] [id number] [place] [address] May, [facility] [address] [id number] [place] [address] Apr, [facility] [address] [id number] [place] [address] Apr, [facility] [address] [id number] [place] [address] Apr, [facility] [address] [id number] [place] [address]166 Apr, [facility] [address] [id number] [place] [address] Apr, [facility] [address] [id number] [place] [address] Apr, [facility] [address] [id number] [place] [address] Apr, [facility] [address] [id number] [place] [address] Mar, [facility] [address] [place] [id number] Mar, [facility] [address] [id number] [place] [address] Mar, [facility] [place] [facility] [address] [id number] [place] [address] Mar, [facility] [place] [facility] [address] [id number] [place] [address] Mar, [facility] [place] [facility] [address] [id number] [place] [address] Mar, [facility] [place] [facility] [address] [id number] [place] [address] Mar, [facility] [place] [facility] [address] [id number] [place] [address]- [address] Mar, [facility] [place] [facility] [address] [id number] [place] [address]- [address]346 Mar, [facility] [place] [facility] [address] [id number] [place] [address] Mar, [facility] [place] [facility] [address] [id number] [place] [address] Mar, [facility] [place] [facility] [address] [id number] [place] [address]169 Mar, [facility] [place] [facility] [address] [id number] [place] [address]- [address]773 Mar, [facility] [place] [facility] [address] [id number] [place] [address] Mar, [facility] [place] [facility] [address] [id number], [place] [address] Mar, [facility] [place] [facility] [address] [id number] [place] [address]- 8914 Mar, [facility] [place] [facility] [address] [id number] [place] [address] Mar, [facility] [place] [facility] [address] [id number] [place] [address] Feb, [facility] [place] [facility] [address] [id number] [place] [address]- [address] Feb, [facility] [place] [facility] [address] [id number] [place] [address]- 9144 Feb, [facility] [place] [facility] [address] [id number] [place] [address]- [address]176 Feb, [facility] [place] [facility] [address] [id number] [place] [address] 7719 Feb, [facility] [place] [facility] [address] [id number] [place] [address]- 2485 Feb, [facility] [place] [facility] [address] [id number] [place] [address]- [address] Feb, [facility] [place] [facility] [address] [id number] [place] [address]- 4562 Feb, [facility] [place] [facility] [address] [id number] [place] [address] 130[address] Feb, [facility] [place] [facility] [address] [id number] [place] [address]- 0413 Feb, [facility] [place] [facility] [address] [id number] [place] [address]- 48[address] Feb, [facility] [place] [facility] [address] [id number] [place] [address]- [address]30 Feb, [facility] [place] [facility] [address] [id number] [place] [address]- [address]247 Feb, [facility] [place] [facility] [address] [id number], [place] [address] Feb, [facility] [place] [facility] [address] [id number] [place] [address]- [address]362 Feb, [facility] [place] [facility] [address] [id number] [place] [address]- 6565 Feb, [facility] [place] [facility] [address] [id number], [place] [address] Jan, [facility] [place] [facility] [address] [id number] [place] [address]- 9971 Jan, [facility] [place] [facility] [address] [id number] [place] [address]- 6670 Jan, [facility] [place] [facility] [address] [id number] [place] [address]- 5912 Jan, [facility] [place] [facility] [address] [id number] [place] [address]- 8699 Jan, [facility] [place] [facility] [address] [id number] [place] [address]- 6714 Jan, [facility] [place] [facility] [address] [id number] [place] [address]- 4385 Jan, [facility] [place] [facility] [address] [id number] [place] [address]- 1524 Jan, [facility] [place] [facility] [address] [id number] [place] [address] Jan, [facility] [place] [facility] [address] [id number] [place] [address] Jan, [facility] [place] [facility] [address] [id number] [place] [address] Jan, [facility] [place] [facility] [address] [id number] [place] [address] Jan, [facility] [place] [facility] [address] [id number], [place] [address] Jan, [facility] [place] [facility] [address] [id number] [place] [address] 69[address] Jan, [facility] [place] [facility] [address] [id number] [place] [address] Jan, [facility] [place] [facility] [address] [id number] [place] [address] Jan, [facility] [place] [facility] [address] [id number], [place] [address] 04 Jan, 2012 [facility] [place] [facility] [address] [id number] [place] [address] 21 Dec, 2011 [facility] [place] [facility] [address] [id number] [place] [address]166 20 Dec, 2011 [facility] [place] [facility] [address] [id number] [place] [address] 2546 18 Dec, 2011 [facility] [place] [facility] [address] [id number] [place] [address] 2546 18 Dec, 2011 [facility] [place] [facility] [address] [id number] [place] [address] 2546 10 Dec, 2011 [facility] [place] [facility] [address] [id number] [place] [address] 7956 10 Dec, 2011 [facility] [place] [facility] [address] [id number] [place] [address] 4540 10 Dec, 2011 [facility] [place] [facility] [address] [id number] [place] [address] 6028 07 Dec, 2011 [facility] [place] [facility] [address] [id number] [place] [address] 1598 30 Nov, 2011 [facility] [place] [facility] [address] [id number] [place] [address]- 5323 Nov, [facility] [place] [facility] [address] [id number] [place] [address] Nov, [facility] [place] [facility] [address] [id number] [place] [address]45 Nov, [facility] [place] [facility] [address] [id number] [place] [address] 2546 Nov, [facility] [place] [facility] [address] [id number] [place] [address] 478[address] Nov, [facility] [place] [facility] [address] [id number] [place] [address]- [address]49 30 Oct, 2011 [facility] [place] [facility] [address] [id number] [place] [address]- 2108 30 Oct, 2011 [facility] [place] [facility] [address] [id number] [place] [address] 4931 Oct, [facility] [place] [facility] [address] [id number] [place] [address] 0446 Oct, [facility] [place] [facility] [address] [id number] [place] [address] 459[address] Oct, [facility] [place] [facility] [address] [id number] [place] [address] Oct, [facility] [place] [facility] [address] [id number] [place] [address] 3[address] Oct, [facility] [place] [facility] [address] [id number] [place] [address]- 2213 Sep, [facility] [place] [facility] [address] [id number] [place] [address] 48[address] Sep, [facility] [place] [facility] [address] [id number] [place] [address] 5120 Sep, [facility] [place] [facility] [address] [id number] [place] [address] 4223 Sep, [facility] [place] [facility] [address] [id number] [place] [address] 1759 Sep, [facility] [place] [facility] [address] [id number] [place] [address]- 2541 15 Sep, 2011 [facility] [place] [facility] [address] [id number] [place] [address] 1246 14 Sep, 2011 [facility] [place] [facility] [address] [id number] [place] [address]- 4242 11 Sep, 2011 [facility] [place] [facility] [address] [id number] [place] [address] 05 Sep, 2011 [facility] [place] [facility] [address] [id number] [place] [address]115 Sep, [facility] [address] [id number] [place] [address] 7772 August, [facility] [place] [facility] [address] [id number] [place] [address] 3936 August, [facility] [place] [facility] [address] [id number] [place] [address] 4024 August, [facility] [place] [facility] [address] [id number] [place] [address]- 8026 August, [facility] [place] [facility] [address] [id number] [place] [address] 1979 August, [facility] [place] [facility] [address] [id number] [place] [address] 1798 Jul, [facility] [place] [facility] [address] [id number] [place] [address]- 7629 Jul, [facility] [place] [facility] [address] [id number] [place] [address]- 2113 Jul, [facility] [place] [facility] [address] [id number] [place] [address]- 7092 Jul, [facility] [place] [facility] [address] [id number] [place] [address]- 5328 Jul, [facility] [place] [facility] [address] [id number] [place] [address] 9759 Jul, [facility] [place] [facility] [address] [id number], [place] [address] Jul, [facility] [place] [facility] [address] [id number] [place] [address]- 7705 Jun, [facility] [place] [facility] [address] [id number] [place] [address]- 4407 Jun, [facility] [place] [facility] [address] [id number] [place] [address]- 7785 Jun, [facility] [place] [facility] [address] [id number], [place] [address] Jun, [facility] [place] [facility] [address] [id number] [place] [address]- 7832 Jun, [facility] [place] [facility] [address] [id number] [place] [address]- 6246 May, [facility] [place] [facility] [address] [id number] [place] [address]- 4256 May, [facility] [place] [facility] [address] [id number] [place] [address] 3160 May, [facility] [place] [facility] [address] [id number] [place] [address]- 1836 May, [facility] [place] [facility] [address] [id number] [place] [address]- 5759 May, [facility] [place] [facility] [address] [facility] [id number] [place] [address]- 2717 May, [facility] [place] [facility] [address] [id number] [place] [address]- 0551 Apr, [facility] [place] [facility] [address] [facility] [id number] [place] [address]- 2723 Mar, [facility] [place] [facility] [address] [facility] [id number] [place] [address]- 4631 Feb, [facility] [place] [facility] [address] [id number] [place] [address] 2547 Feb, [facility] [place] [facility] [address] [id number] [place] [address]- 2548 Feb, [facility] [place] [facility] [address] [id number] [place] [address]- 1320 Feb, [facility] [place] [facility] [address] [facility] [id number] [place] [address]- 8384 Jan, [facility] [place] [facility] [address] [id number] [place] [address]- 2859 Jan, [facility] [place] [facility] [address] [id number] [place] [address]- 9541 26 Jan, 2011 [facility] [place] [facility] [address] [id number] [place] [address] 24 Jan, 2011 [facility] [place] [facility] [address] [id number] [place] [address]- 5919 14 Jan, 2011 [facility] [place] [facility] [address] [id number] [place] [address]- 6051 19 Dec, 2010 [facility] [place] [facility] [address] [id number] [place] [address]- 2926 Oct, [facility] [place] [facility] [address] [id number] [place] [address]- 7115 August, [facility] [place] [facility] [address] [id number] [place] [address]- 9095 29 Mar, 2010 [facility] [place] [facility] [address] [id number] [place] [address]- 1434 27 Mar, 2010 [facility] [place] [facility] [address] [id number] [place] [address]- 7591 16 Mar, 2010 [facility] [place] [facility] [address] [id number] [place] [address]- 6568 15 Mar, 2010 [facility] [address] [id number] [place] [address]- 6115 15 Mar, 2010 [facility] [place] [facility] [address] [id number] [place] [address]- 1323 08 Mar, 2010 [facility] [place] [facility] [address] [id number] [place] [address]- 7807 03 Mar, 2010 [facility] [place] [facility] [address] [id number] [place] [address]- 0874 24 Feb, 2010 [facility] [place] [facility] [address] [id number] [place] [address]- 2059 24 Feb, 2010 [facility] [place] [facility] [address] [id number], [place] [address]- 7439 15 Feb, 2010 [facility] [place] [facility] [address] [id number] [place] [address]- 7117 19 Jan, 2010 [facility] [place] [facility] [address] [id number], [place] [address]- 6309 Jan, [facility] [place] [facility] [address] [id number] [place] [address]- 4634 Jan, [facility] [place] [facility] [address] [id number], [place] [address]- 7337 Nov, [facility] [place] [facility] [address] [id number] [place] [address]- 0201 Sep, [facility] [place] [facility] [address] [id number], [place] [address]- 2248 August, [facility] [place] [facility] [address] [id number], [place] [address] 1982 30 Mar, 2009 [facility] [place] [facility] [address] [id number], [place] [address]- 4898 Mar, [facility] [place] [facility] [address] [id number], [place] [address]- 1129 17 Feb, 2009 [facility] [place] [facility] [address] [id number], [place] [address]- 8451 Feb, [facility] [place] [facility] [address] [id number], [place] [address]- 0253 10 Feb, 2009 [facility] [place] [facility] [address] [id number], [place] [address]- 9752 10 Feb, 2009 [facility] [place] [facility] [address] [id number], [place] [address]- 5067 06 Feb, 2009 [facility] [place] [facility] [address] [id number], [place] [address]- 2300 27 Jan, 2009 [facility] [place] [facility] [address] [id number], [place] [address]- 7584 Jan, [facility] [place] [facility] [address] [id number], [place] [address]- 1709 Jan, [facility] [address] [id number], [place] [address]- 7544 Jan, [facility] [id number], [place] [address]- 0[address] Nov, [facility] [id number], [place] [address]- 0221 Sep, [facility] [id number], [place] [address]- 0847 August, [facility] [id number] [place] [address]- 7271 Jul, [facility] [id number], [place] [address]- 9751 May, IMMUNIZATIONS No Known Immunizations SOCIAL HISTORY Never Assessed REASON FOR VISIT Controlled Med Refill PLAN OF CARE VITAL SIGNS MEDICATIONS Unknown [...] Knee Surgery 07/16/17 Hospitalization History [facility] [place]- left hand/wrist swelling 10/09/2017
--- OUTSIDE RECORDS SUMMARY | 2018-01-01 12:09 | XMS REPORT ---
Author Author SENAIT DUNLAP [facility] Address [address] [place] [address] Care Team Providers Care Tube Bender Hand Name Role Phone SENAIT DUNLAP Unavailable PROBLEMS Type Condition ICD9-CM Code PNX29-GU Code Onset Dates Condition Status SNOMED Code Problem History of common bile duct surgery Z98.89 Active 358530326 Problem Barretts esophagus K22.70 Active 672655068 Problem 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 Active 76183670 Problem Colon polyp K63.5 Active 27855945 Problem Bilateral low back pain without sciatica M54.5 Active 394142869 Problem Screening breast examination Z12.39 Active 599786817 Problem Postmenopausal Z78.0 Active 08317568 Problem Osteopenia M85.80 Active 594317963 Problem Cigarette nicotine dependence without complication F17.210 Active 44234672 Problem Type 2 diabetes mellitus with diabetic peripheral angiopathy without gangrene E11.51 Active 750193938 Problem Vascular dementia without behavioral disturbance F01.50 Active [id number] Problem Unspecified atherosclerosis of [place] arteries of extremities, unspecified extremity I70.209 Active 431399359284649 Problem Arthritis M19.90 Active 0867813 Problem Chronic atrial fibrillation I48.2 Active 330753316 Problem Chronic obstructive pulmonary disease with acute lower respiratory infection J44.0 Active 124469386 Problem Other chronic pancreatitis K86.1 Active 220274700 Problem Stress incontinence of urine N39.3 Active 89146727 Problem Controlled type 2 diabetes mellitus without complication, without long -term current use of insulin E11.9 Active 406216270 Problem Unspecified psychosis F29 Active 95992450 Problem Xeroderma Q80.9 Active 24288622 Problem COPD (chronic obstructive pulmonary disease) J44.9 Active 95318573 Problem Dementia without behavioral disturbance, unspecified dementia type F03.90 Active 82992947 Problem Gastroparesis K31.84 Active 866649365 Problem Type 2 diabetes mellitus with diabetic neuropathy, without long-term current use of insulin E11.40 Active 88920597 Problem Osteoporosis M81.0 Active 66153969 Problem Atherosclerosis of [place] artery of both lower extremities with intermittent claudication I70.213 Active 559589614905538 Problem Hyperlipidemia E78.5 Active 68251652 Problem Diabetic polyneuropathy associated with type 2 diabetes mellitus E11.42 Active 61553093 Problem Essential tremor G25.0 Active 25025727 Problem 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 I25.118 Active 8174672515725 Problem Generalized anxiety disorder F41.1 Active 274042426 Problem Gastroesophageal reflux disease, esophagitis presence not specified K21.9 Active 682026341 Problem Coronary artery disease involving nul[place] coronary artery of n[place] 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 I25.118 Active 6087694256753 Problem Postconcussion syndrome F07.81 Active 22570439 Problem Chronic pain syndrome G89.4 Active 300354794 Problem Migraine without aura and without status migrainosus, not intractable G43.009 Active 169251693 Problem Paroxysmal atrial fibrillation I48.0 Active 914597084 Problem Migraine without aura and with status migrainosus, not intractable G43.001 Active 519857364 Problem Cervicalgia M54.2 Active 1020584258182 Problem Acute exacerbation of chronic obstructive pulmonary disease (COPD) J44.1 Active 690651965 Problem Major depressive disorder, recurrent episode, moderate F33.1 Active 339960157 Problem Crohn''s disease without complication, unspecified gastrointestinal tract location K50.90 Active 53388456 Problem Chronic fatigue R53.82 Active 75728719 Problem Bipolar affective disorder, currently depressed, moderate F31.32 Active 744636632 ALLERGIES Substance Reaction Event Type Date Status Penicillin V Potassium rash Drug Allergy Jul, Active Neosporin rash Drug Allergy Jul, Active Ibuprofen rash Drug Allergy Jul, Active Glipizide hives, nausea Drug Allergy Jul, Active ENCOUNTERS Encounter Location Date Diagnosis [facility] [id number] [address] Nov, [facility] [id number] [address] 9[address] Nov, [facility] [id number] [address] 4436 Oct, [facility] [id number] [place] [address] 57395- 5670 Oct, Bipolar affective disorder, currently depressed, moderate F31.32 ; Vascular dementia without behavioral disturbance F01.50 and Generalized anxiety disorder F41.1 [facility] [id number] [place] [address] 70809- 5985 Oct, [facility] [id number] [place] [address] 84031- 6322 Oct, [facility] [id number] [place] [address] 89338- 2876 Oct, Edema of both legs R60.0 [facility] [id number] [place] [address] 41234- 5140 Oct, [facility] [id number] [place] [address] 91134- 5704 Sep, [facility] [id number] [place] [address] 99581- 6950 Sep, [facility] [id number] [place] [address] 53288- 5692 Sep, [facility] [id number] [place] [address] 37191- 1619 Sep, Encounter for well woman exam with routine gynecological exam Z01.419 ; Screening for STDs (sexually transmitted diseases) Z11.3 ; Screening breast examination Z12.31 and Overweight (BMI 25.0-29.9) E66.3 [facility] [id number] [place] [address] 84291- 8714 Sep, [facility] [id number] [place] [address] 24056- 0763 Sep, [facility] [id number] [place] [address] 44665- 3955 Sep, [facility] [id number] [place] [address] 43486- 2167 August, [facility] [address] [address] 2333 August, [facility] [id number] [place] [address] 05831- 1016 August, Type 2 diabetes mellitus with diabetic neuropathy, without long-term current use of insulin E11.40 and Sprain of right ankle, unspecified ligament, initial encounter S93.401A [facility] [id number] [place] [address] 03516- 8518 August, [facility] [id number] [place] [address] 38651- 7443 August, [facility] [id number] [place] [address] 03248- 1456 August, [facility] [id number] [place] [address] 06702- 0217 August, Gastroesophageal reflux disease, esophagitis presence not specified K21.9 [facility] [id number] [address] 8578 August, [facility] [id number] [place] [address] 69992- 0488 August, [facility] [id number] [place] [address] 18951- 4876 August, [facility] [id number] [place] [address] 79437- 6134 August, Type 2 diabetes mellitus with diabetic neuropathy, without long-term current use of insulin E11.40 and Elevated liver enzymes R74.8 [facility] [id number] [address] 2428 Jul, [facility] [address], [place] [address] 3152 Jul, Cough R05 [facility] [id number] [place] [address] 69443- 6404 Jul, [facility] [address] 13352- 3366 Jul, [facility] [address] 51916- 9461 Jul, Bipolar affective disorder, currently depressed, moderate F31.32 ; Vascular dementia without behavioral disturbance F01.50 and Generalized anxiety disorder F41.1 [place] [address] 47463- 9719 Jul, [facility] [address] 60198- 3436 Jul, Type 2 diabetes mellitus with diabetic neuropathy, without long-term current use of insulin E11.40 and Elevated liver enzymes R74.8 [place] [address] 46598- 8283 Jul, [place] [address] 98649- 8813 Jul, [facility] [address] 04260- 3835 Jul, [place] [address] 47912- 7048 Jul, Post-menopausal Z78.0 [place] [address] 75898- 1379 Jul, Stress incontinence of urine N39.3 [facility] [id number] [place] [address] 09677- 3190 Jul, [facility] [address] 75176- 4815 Jul, [facility] [id number] [place] [address] 76336- 8986 Jul, Stress incontinence of urine N39.3 and Cough R05 [place] [address] 75053- 5499 Jul, [facility] [address] [address]- 3327 Jul, [facility] [id number] [place] [address] 31194- 1996 Jul, [facility] [id number] [place] [address] 32630- 4414 Jul, Gastroesophageal reflux disease, esophagitis presence not specified K21.9 [facility] [id number] [place] [address] 50699- 9746 Jun, Diabetic polyneuropathy associated with type 2 diabetes mellitus E11.42 [facility] [id number] [place] [address] 08134- 5638 28 Jun, 2017 Diabetic polyneuropathy associated with type 2 diabetes mellitus E11.42 ; Coronary artery disease involving nulato coronary artery of n[place] 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 I25.118 and Paroxysmal atrial fibrillation I48.0 [facility] [address] [address]- 1726 Jun, [facility] [id number] [place] [address] 35096- 4347 Jun, [facility] [id number] [place] [address] 20634- 9472 Jun, Gastroenteritis K52.9 [facility] [id number] [place] [address] 02820- 5258 Jun, Gastroenteritis K52.9 [facility] [address], [place] [address] 2542 Jun, [facility] [address], [place] [address]- 6985 Jun, [facility] [address], [place] [address]- 7684 Jun, Sprain of right ankle, unspecified ligament, initial encounter S93.401A ; Type 2 diabetes mellitus with diabetic neuropathy, without long-term current use of insulin E11.40 ; Atherosclerosis of [place] artery of both lower extremities with intermittent claudication I70.213 ; 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 I25.118 ; Chronic atrial fibrillation I48.2 and Crohn''s disease without complication, unspecified gastrointestinal tract location K50.90 [facility] [id number] [place] [address] 11180 -7945 17 Jun, 2017 Cough R05 and Chronic obstructive pulmonary disease with acute lower respiratory infection J44.0 [place] [id number] [place] [address] 18972- 8666 Jun, [place] [id number] [place] [address] 34626- 7779 Jun, Coughing R05 ; Unspecified atherosclerosis of n[place] arteries of extremities, unspecified extremity I70.209 ; Type 2 diabetes mellitus with diabetic peripheral angiopathy without gangrene E11.51 ; Crohn''s disease without complication, unspecified gastrointestinal tract location K50.90 ; Other chronic pancreatitis K86.1 and Chronic atrial fibrillation I48.2 [facility] [id number] [place] [address] 18038 -8591 Jun, [address] [id number] [place] [address] 77667- 6150 Jun, Bipolar affective disorder, currently depressed, moderate F31.32 ; Vascular dementia without behavioral disturbance F01.50 and Generalized anxiety disorder F41.1 [place] [id number] [place] [address] 06547- 9841 May, Generalized anxiety disorder F41.1 [place] [id number] [place] [address] 21855- 3767 May, [place] [id number] [place] [address] 61105- 5302 May, [place] [id number] [place] [address] 14765- 6131 May, Coughing R05 [address] [place] [id number] [place] [address] 50939- 4755 May, [place] [id number] [place] [address] 44037- 3707 May, Bipolar affective disorder, currently depressed, moderate F31.32 ; Vascular dementia without behavioral disturbance F01.50 and Generalized anxiety disorder F41.1 [address] [place] [address] 52556- 6603 Apr, Generalized anxiety disorder F41.1 [place] [id number] [place] [address] 14451- 4672 Apr, [place] [id number] [place] [address] 11477- 2505 Apr, Vascular dementia without behavioral disturbance F01.50 ; Generalized anxiety disorder F41.1 and Bipolar affective disorder, currently depressed, moderate F31.32 [place] [id number] [place] [address] 71095- 7173 Apr, Generalized anxiety disorder F41.1 [facility] [id number] [place] [address] 30530 -9079 Apr, Cough R05 and Acute exacerbation of chronic obstructive pulmonary disease (COPD) J44.1 [place] [place] [id number] [place] [address] 31223- 5975 Apr, [facility] [id number] [place] [address] 83502 -9341 Mar, Cough R05 and Cigarette nicotine dependence without complication F17.210 [place] [id number] [place] [address] 78331- 5522 Mar, [place] [id number] [place] [address] 93789- 8881 Feb, Generalized anxiety disorder F41.1 ; Major depressive disorder, recurrent episode, moderate F33.1 ; Vascular dementia without behavioral disturbance F01.50 and Unspecified psychosis F29 [place] [id number] [place] [address] 41717- 6918 Feb, [place] [id number] [place] [address] 83438- 7684 Feb, [place] [id number] [place] [address] 77755- 2469 Feb, Generalized anxiety disorder F41.1 [address] [place] [address] 59902- 4743 Feb, Generalized anxiety disorder F41.1 [address] [place] [address] 21063- 2446 Feb, Dizziness R42 ; Chronic fatigue R53.82 ; Postconcussion syndrome F07.81 ; Fall, initial encounter W19.XXXA and Disorientation R41.0 [place] [id number] [place] [address] 77042- 0735 Feb, Postconcussion syndrome F07.81 ; Injury of head, initial encounter S09.90XA ; Fall, initial encounter W19.XXXA ; Disorientation R41.0 and Acute cystitis with hematuria N30.01 [place] [id number] [place] [address] 05640- 4124 Jan, Gastroesophageal reflux disease, esophagitis presence not specified K21.9 ; Post-menopausal Z78.0 and Migraine without aura and without status migrainosus, not intractable G43.009 [place] [id number] [place] [address] 40244- 0196 Jan, [place] [id number] [place] [address] 27407- 2100 Jan, Generalized anxiety disorder F41.1 ; Major depressive disorder, recurrent episode, moderate F33.1 ; Vascular dementia without behavioral disturbance F01.50 and Unspecified psychosis F29 [address] [place] [id number] [place] [address] 71393- 9223 Jan, Pneumonia of left lower lobe due to infectious organism J18.1 [facility] [id number] [place] [address] 54578- 2242 05 Jan, 2017 Migraine without aura and with status migrainosus, not intractable G43.001 [facility] [id number] [place] [address] 27320 -3592 Jan, Migraine without aura and without status migrainosus, not intractable G43.009 [facility] [id number] [place] [address] 92205- 8228 Dec, Hematoma T14.8 [facility] [id number] [place] [address] 67892- 4378 Dec, [facility] [id number] [place] [address] 35488 -7580 Nov, Fatigue, unspecified type R53.83 [place] [address] 68079- 1183 Nov, Scabies B86 and Coronary artery disease involving nulato coronary artery of n[place] 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 I25.118 [place] [id number] [place] [address] 86505- 9579 Nov, [place] [id number] [place] [address] 54889- 1238 Nov, [place] [id number] [place] [address] 90197- 6023 Oct, [place] [id number] [place] [address] 97638- 8466 Oct, Generalized anxiety disorder F41.1 and Major depressive disorder, recurrent episode, moderate F33.1 [place] [id number] [place] [address] 76100- 8348 Oct, Cramp of both lower extremities R25.2 [place] [id number] [place] [address] 87085- 6091 Oct, Leg cramps R25.2 [facility] [id number] [place] [address] 67417- 9062 Oct, Chronic pain syndrome G89.4 [facility] [id number] [place] [address] 50501- 6329 17 Oct, 2016 [facility] [id number] [place] [address] 08368- 6546 Oct, [facility] [id number] [place] [address] 17612- 1253 Oct, Routine gynecological examination Z01.419 and Screening for breast cancer Z12.31 [place] [id number] [place] [address] 64937- 5400 28 Sep, 2016 Diarrhea R19.7 [facility] [id number] [place] [address] 51907- 2264 Sep, Back pain M54.9 [facility] [id number] [place] [address] 91247- 2111 Sep, [facility] [id number] [place] [address] 66897- 4778 Sep, [facility] [id number] [place] [address] 57884 -1448 August, Xeroderma Q80.9 [facility] [id number] [place] [address] 72367- 7624 August, Dementia without behavioral disturbance, unspecified dementia type F03.90 [facility] [id number] [place] [address] 12869- 1139 August, Chronic pain syndrome G89.4 [facility] [id number] [place] [address] 14934- 8339 August, [facility] [id number] [place] [address] 88236- 9944 August, Hyperlipidemia E78.5 ; Other fatigue R53.83 and Other specified hypotension I95.89 [facility] [id number] [place] [address] 28793 -8789 August, Dysuria R30.0 ; Other fatigue R53.83 and Other specified hypotension I95.89 [facility] [address] 18360- 6713 August, [place] [address] 64168- 8027 Jul, Pain in left knee M25.562 and Gastroenteritis K52.9 [place] [address] 55376- 8485 Jul, [place] [address] 85517- 2386 Jul, Diarrhea R19.7 [facility] [address] 36410 -3033 Jul, Spider bite, accidental or unintentional, initial encounter T63.301A [place] [address] 66940- 3954 Jul, Primary osteoarthritis of right knee M17.11 and Arthritis M19.90 [place] [address] 28328- 7645 Jul, Generalized anxiety disorder F41.1 and Major depressive disorder, recurrent episode, moderate F33.1 [place] [address] 16190- 2729 Jul, Type 2 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 and Temporal headache R51 [place] [address] 81630- 8554 Jul, Back pain M54.9 [place] [address] 03422- 6243 Jul, [place] [address] 89373- 3091 Jul, [facility] [id number] [place] [address] 36055- 5551 Jun, Nausea R11.0 [facility] [address] 79244 -0371 Jun, Acute suppurative otitis media of both ears without spontaneous rupture of tympanic membranes, recurrence not specified H66.003 and COPD exacerbation J44.1 [place] [address] 58587- 5236 Jun, Generalized anxiety disorder F41.1 [place] [address] 06334- 5125 Jun, [facility] [place] [address] 43997 -4420 Jun, [facility] [place] [address] 46708 -2790 Jun, Shortness of breath R06.02 and COPD exacerbation J44.1 [place] [address] 75458- 4253 10 Jun, 2016 Eczema, unspecified type L30.9 [place] [id number] [place] [address] 92543- 7269 Jun, [place] [id number] [place] [address] 09898- 3665 May, [place] [id number] [place] [address] 50347- 3235 May, Muscle cramping R25.2 [place] [address] 40904- 4701 May, [place] [address] 50203- 8716 Apr, Diarrhea R19.7 [place] [address] 35121- 4821 Apr, [place] [id number] [place] [address] 90710- 6300 Apr, Chronic pain syndrome G89.4 [place] [address] 24076- 9201 Apr, Cramp of both lower extremities R25.2 and Vascular dementia without behavioral disturbance F01.50 [place] [address] 67030- 5332 Apr, Type 2 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 and Cigarette nicotine dependence without complication F17.210 [place] [address] 62824- 5310 Mar, Generalized anxiety disorder F41.1 [place] [address] 68765- 7218 Feb, Generalized anxiety disorder F41.1 and Major depressive disorder, recurrent episode, moderate F33.1 [place] [address] 07282- 5710 Feb, [facility] [address] 83461 -3284 Feb, Dysuria R30.0 and Acute cystitis with hematuria N30.01 [place] [address] 66523- 1764 Jan, [place] [address] 97670- 3642 Jan, [place] [address] 32556- 1128 Jan, [place] [address] 63399- 9022 Jan, [facility] [facility] [address] [address] -[address]169 10 Jan, 2016 Wasp sting, accidental or unintentional, initial encounter T63.461A [facility] [id number] [place] [address] 28419- 6396 06 Jan, 2016 Encounter for immunization Z23 [facility] [id number] [place] [address] 14416- 4894 Jan, [facility] [id number] [place] [address] 55259- 6592 Jan, [facility] [address] 45773- 6246 28 Dec, 2015 Generalized anxiety disorder F41.1 and Major depressive disorder, recurrent episode, moderate F33.1 [facility] [id number] [place] [address] 94499- 7605 21 Dec, 2015 Routine gynecological examination Z01.419 ; Postmenopausal Z78.0 ; Screening breast examination Z12.39 ; Osteopenia M85.80 and Breast cancer screening Z12.39 [facility] [id number] [place] [address] 96473- 6974 20 Dec, 2015 [facility] [id number] [place] [address] 91317- 5971 19 Dec, 2015 [facility] [id number] [place] [address] 15707- 6699 16 Dec, 2015 [facility] [id number] [place] [address] 54666- 1580 16 Dec, 2015 [facility] [id number] [place] [address] 81848- 8514 14 Dec, 2015 [facility] [id number] [place] [address] 25894- 4125 06 Dec, 2015 [facility] [id number] [place] [address] 90463- 3785 30 Nov, 2015 [facility] [id number] [place] [address] 50389 -9259 Nov, Cough R05 ; Other viral agents as the cause of diseases classified elsewhere B97.89 and Acute upper respiratory infection, unspecified J06.9 [facility] [address] [facility] [id number] [address]- 2630 Nov, [facility] [address] [facility] [id number], [place] [address]- 4003 Nov, [facility] [address] [facility] [id number][place] [address]- 4467 Nov, [facility] [address] [facility] [id number] [address]- 3687 Nov, [facility] [address] [facility] [id number] [place] [address]- 2157 Nov, [facility] [address] [facility] [id number] [address]- 5126 Oct, [facility] [address] [id number] [address]- 2597 Oct, [facility] [address] [id number], [place] [address]- 6751 Oct, [facility] [address] [id number], [place] [address]- 3219 Oct, Chronic pain syndrome G89.4 [facility] [address] [id number] [address]- 3213 Sep, Generalized anxiety disorder F41.1 and Major depressive disorder, recurrent episode, moderate F33.1 [facility] [address] [address]- 8878 Sep, [facility] [address] [facility] [id number] [address]- 0412 Sep, [facility] [address] [address]- 6613 14 Sep, 2015 Generalized anxiety disorder F41.1 [facility] [address] [id number] [address]- 4143 13 Sep, 2015 Cramp of both lower extremities R25.2 and Cervicalgia M54.2 [facility] [id number] [place] [address] 88988- 7630 Sep, Generalized anxiety disorder F41.1 [facility] [id number] [place] [address] 30870- 8893 Sep, [facility] [id number] [place] [address] 28516 -1307 August, Rash R21 ; Itching L29.9 and Allergic response, subsequent encounter T78.40XD [facility] [id number] [place] [address] 87545- 8357 August, Primary insomnia F51.01 [facility] [id number] [place] [address] 29085 -6563 August, Rash R21 ; Itching L29.9 and Allergic response, initial encounter T78.40XA [facility] [id number] [place] [address] 80135- 2969 August, [facility] [id number] [place] [address] 97351- 2234 August, Cramp of both lower extremities R25.2 [facility] [id number] [place] [address] 66577- 8556 August, Back pain M54.9 [facility] [id number] [place] [address] 18553- 7238 August, [facility] [id number] [place] [address] 69606- 9870 August, [facility] [id number] [place] [address] 25580 -9367 August, Cramp of both lower extremities R25.2 [facility] [id number] [place] [address] 23588- 4789 August, [facility] [id number] [place] [address] 15917- 1304 August, Syncope R55 ; Paroxysmal atrial fibrillation I48.0 ; Dementia without behavioral disturbance, unspecified dementia type F03.90 and Chronic pain syndrome G89.4 [facility] [id number] [place] [address] 13239- 9422 August, Type 2 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 and Syncope R55 [facility] [id number] [place] [address] 56409- 0599 Jul, [facility] [id number] [place] [address] 49226- 8394 Jul, [facility] [id number] [place] [address] 19672- 4544 Jul, [facility] [id number] [place] [address] 49786- 7407 Jul, [facility] [id number] [place] [address] 44657- 2383 Jul, [facility] [id number] [place] [address] 74987- 0977 Jul, UTI (urinary tract infection) N39.0 [facility] [id number] [place] [address] 71172- 8535 Jul, [facility] [id number] [place] [address] 51664- 1957 Jul, Major depressive disorder, recurrent episode, moderate F33.1 and Generalized anxiety disorder F41.1 [facility] [address] [address]- 1733 Jul, Generalized anxiety disorder F41.1 [facility] [id number] [place] [address] 95564- 8367 Jul, Diarrhea R19.7 [facility] [id number] [place] [address] 22048- 1285 Jul, [facility] [id number] [place] [address] 48127- 7424 Jun, [facility] [address] [address]- 4469 Jun, Eczema L30.9 [facility] [address] [address]- 9148 Jun, [facility] [address] [address]- 5554 Jun, COPD (chronic obstructive pulmonary disease) J44.9 [facility] [id number] [place] [address] 28542- 8018 Jun, [facility] [id number] [place] [address] 23662- 2372 Jun, Major depressive disorder, recurrent episode, moderate F33.1 and Generalized anxiety disorder F41.1 [facility] [id number] [place] [address] 16278- 8047 May, [facility] [address] [address]- 8591 May, UTI (urinary tract infection) N39.0 [facility] [address] [address]- 6622 May, [facility] [address] [address]- 8029 May, [facility] [address] [address]- 0885 May, [facility] [address], [place] [address]- 8208 May, [facility] [address], [place] [address]- 9052 Apr, Major depressive disorder, recurrent episode, moderate F33.1 and Generalized anxiety disorder F41.1 [facility] [address] [address]- 8143 25 Michael, 2016 COPD (chronic obstructive pulmonary disease) J44.9 [facility] [address] [address]- 1757 Apr, [facility] [id number] [place] [address] 06805- 9676 Apr, Atrial flutter I48.92 [facility] [id number] [place] [address] 70241- 9653 Apr, [facility] [id number] [place] [address] 69087- 7762 Apr, [facility] [id number] [place] [address] 00417- 2076 Mar, [facility] [id number] [place] [address] 71339- 5754 Mar, [facility] [id number] [place] [address] 31042- 4539 Mar, [facility] [id number] [place] [address] 25327- 1670 Mar, Hyperlipidemia E78.5 ; Type 2 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 ; Major depressive disorder, recurrent episode, moderate F33.1 and Chronic pain syndrome G89.4 [facility] [address], [place] [address]- 8884 16 Mar, 2015 [facility] [address] [address]- 4110 14 Mar, 2015 [facility] [address], [place] [address]- 0841 Mar, [facility] [id number] [place] [address] 04642- 2348 08 Mar, 2015 [facility] [address], [place] [address]- 9486 30 Feb, 2015 COPD (chronic obstructive pulmonary disease) J44.9 and Back pain M54.9 [facility] [address] [place] [address]- 1437 Feb, [facility] [address] [address]- 8198 Feb, [facility] [address], [place] [address]- 5920 Feb, [facility] [id number] [place] [address] 49921- 6053 Feb, [facility] [id number] [place] [address] 55883- 8294 Feb, [facility] [id number] [place] [address] 79808- 6292 Feb, [facility] [id number] [place] [address] 48148- 6362 Feb, [facility] [id number] [place] [address] 04248- 5633 Feb, [facility] [id number] [place] [address] 82718- 7862 Feb, Diabetes E11.9 ; Back pain M54.9 and COPD (chronic obstructive pulmonary disease) J44.9 [facility] [address] [address]- 2396 Jan, [facility] [id number] [place] [address] 79234- 6131 Jan, Major depression, recurrent F33.9 and Generalized anxiety disorder F41.1 [facility] [address] [address]- 1196 Jan, Chronic pain G89.29 [facility] [id number] [place] [address] 78910- 3126 Jan, [facility] [address] [address]- 3083 Jan, [facility] [id number] [place] [address] 85391- 1458 05 Jan, 2015 [facility] [id number] [place] [address] 07364- 0053 Jan, [facility] [id number] [place] [address] 98411- 4670 Jan, Nicotine dependence F17.200 [facility] [id number] [place] [address] 11110- 9445 Jan, Nicotine dependence F17.200 and Back pain M54.9 [facility] [id number] [place] [address] 66637- 7723 Jan, [facility] [id number] [place] [address] 30885- 0683 28 Dec, 2014 [facility] [id number] [place] [address] 34005- 1214 25 Dec, 2014 Anxiety, generalized 300.02 and Major depression, recurrent 296.30 [facility] [id number] [place] [address] 84075- 3103 24 Dec, 2014 [facility] [id number] [place] [address] 44451- 6399 21 Dec, 2014 [facility] [id number] [place] [address] 48884- 4302 17 Dec, 2014 [facility] [id number] [place] [address] 12232- 9446 15 Dec, 2014 [facility] [id number] [place] [address] 80325- 2368 14 Dec, 2014 [facility] [id number] [place] [address] 79338- 6751 11 Dec, 2014 [facility] [id number] [place] [address] 82678- 4251 10 Dec, 2014 [facility] [id number] [place] [address] 38935- 5778 08 Sep, 2014 Skin tear 879.8 [facility] [address] [address]- 1128 08 Dec, 2014 Routine gynecological examination V72.31 ; Breast cancer screening V76.10 and Family history of breast cancer in first degree relative V16.3 [facility] [id number] [place] [address] 54689- 6393 03 Dec, 2014 [facility] [id number] [place] [address] 78291- 7985 Dec, [facility] [id number] [place] [address] 42109- 7362 Nov, [facility] [id number] [place] [address] 21958- 0372 Nov, [facility] [id number] [place] [address] 39418- 5342 Nov, Poor balance 781.99 and Vascular dementia, uncomplicated 290.40 [facility] [id number] [place] [address] 91645- 1701 Nov, [facility] [id number] [place] [address] 23344- 5732 Nov, Major depression, recurrent 296.30 and Anxiety, generalized 300.02 [facility] [id number] [place] [address] 07041- 5790 Nov, [facility] [id number] [place] [address] 92516- 8019 Nov, [facility] [id number] [place] [address] 46286- 8154 Nov, [facility] [id number] [place] [address] 46702- 1751 Nov, [facility] [id number] [place] [address] 80867- 5025 Nov, Vascular dementia, uncomplicated 290.40 and Lumbago 724.2 [facility] [address] [place] [address]- 2468 Nov, [facility] [address] [address]- 9569 Nov, [facility] [address] [address]- 2595 Nov, [facility] [id number] [place] [address] 92793- 3919 Oct, [facility] [id number] [place] [address] 13492- 7466 Oct, [facility] [id number] [place] [address] 12517- 6556 Oct, [facility] [id number] [place] [address] 03069- 6691 Oct, COPD (chronic obstructive pulmonary disease) 496 and Hyperlipidemia 272.4 [facility] [id number] [place] [address] 43245- 8066 Oct, Major depression, recurrent 296.30 and Anxiety, generalized 300.02 [facility] [id number] [address]- 5468 Oct, [facility] [address], [place] [address]- 4966 Oct, [facility] [address] [address]- 5349 Oct, [facility] [address], [place] [address]- 6195 Sep, Lumbago 724.2 and Anxiety state, unspecified 300.00 [facility] [address], [place] [address]- 8983 Sep, [facility] [address] [address]- 0160 Sep, [facility] [address] [address]- 1521 August, [facility] [address] [facility] [id number] 7675 August, Major depression, recurrent 296.30 ; Anxiety, generalized 300.02 and No condition on [place] V71.09 [facility] [address] [facility] [id number] 9278 August, [facility] [address] [facility] [id number] [address]- 0213 August, [facility] [address] [facility] [id number] [place] 6765 Jul, [facility] [address] [id number] [address]- 9940 Jul, [facility] [address] [place] [address]- 4395 Jul, [facility] [address] [id number] [address]- 1905 Jun, [facility] [address] [id number] [place] [address]- 7285 Jun, [facility] [address] [id number] [address]- 3816 Jun, [facility] [address] [id number] [address]- 8303 Jun, [facility] [address] [id number] [address]- 7007 Jun, [facility] [place] [facility] [address] [facility] [id number] [place] [address]- 9537 Jun, [facility] [place] [facility] [address] [facility] [id number]- 7886 Jun, [facility] [place] [facility] [address] [id number] [address]- 0917 17 Jun, 2014 [facility] [address] [id number] [place] [address]- 7928 13 Jun, 2014 [facility] [place] [facility] [address] [id number] [place] [address]- 8208 13 Jun, 2014 [facility] [place] [facility] [address] [id number] [place] [address]- 1641 10 Jun, 2014 [facility] [place] [facility] [address] [facility] [id number] [place] [address]- 9719 10 Jun, 2014 [facility] [place] [facility] [address] [id number] [place] [address]- 5986 07 Jun, 2014 [facility] [place] [facility] [address] [id number] [place] [address]- 7265 07 Jun, 2014 [facility] [place] [facility] [address] [facility] [id number] [place] [address]- 6129 Jun, 2014 [facility] [place] [facility] [address] [id number] [place] [address]- 5064 Jun, 2014 [facility] [place] [facility] [address] [facility] [id number] [place] [address]- 1497 May, 2014 [facility] [place] [facility] [address] [facility] [id number] [place] [address]- 8975 May, 2014 [facility] [place] [facility] [address] [id number] [place] [address] May, 2014 [facility] [place] [facility] [id number] [place] [address] May, 2014 [facility] [place] [facility] [address] [facility] [id number] [address] May, 2014 [facility] [place] [facility] [address] [facility] [id number] [place] [address] May, 2014 [facility] [place] [facility] [address] [facility] [id number] [place] [address] 19 May, 2014 [facility] [place] [facility] [id number] [place] [address] May, [facility] [place] [facility] [address] [id number] [place] [address] May, [facility] [place] [facility] [address] [id number] [place] [address] May, 2014 [facility] [place] [facility] [address] [id number] [place] [address] May, 2014 [facility] [place] [facility] [address] [id number] [place] [address] May, 2014 [facility] [place] [facility] [address] [id number] [place] [address] May, [facility] [place] [facility] [address] [id number] [place] [address] May, [facility] [place] [facility] [address] [id number] [place] [address] Apr, [facility] [place] [facility] [address] [id number] [place] [address] Apr, [facility] [place] [facility] [address] [id number] [place] [address] Apr, [facility] [place] [facility] [address] [id number] [place] [address] Apr, [facility] [place] [facility] [address] [id number] [place] [address] Apr, [facility] [place] [facility] [address] [id number] [place] [address] Apr, [facility] [place] [facility] [address] [id number] [place] [address] Apr, [facility] [place] [facility] [address] [facility] [id number] [place] [address] Apr, [facility] [place] [facility] [address] [facility] [id number] [place] [address] Apr, [facility] [place] [facility] [address] [id number] [place] [address] Apr, [facility] [address] [id number] [place] [address] Apr, [facility] [address] [id number] [place] [address] Apr, [facility] [address] [id number] [place] [address] Mar, [facility] [address] [id number] [place] [address] 31 Mar, 2014 [facility] [address] [id number] [place] [address] 30 Mar, 2014 [facility] [address] [id number] [place] [address] 30 Mar, 2014 [facility] [address] [id number] [place] [address] Mar, [facility] [address] [id number] [place] [address] 29 Mar, 2014 [facility] [address] [id number] [place] [address] Mar, [facility] [address] [id number] [place] [address] 19 Mar, 2014 [facility] [place] [facility] [address] [id number] [place] [address] 7979 15 Mar, 2014 [facility] [place] [facility] [address] [id number] [place] [address] 8966 15 Mar, 2014 [facility] [place] [facility] [address] [id number] [place] [address] 9311 15 Mar, 2014 [facility] [place] [facility] [address] [id number] [place] [address] 8965 15 Mar, 2014 [facility] [place] [facility] [address] [id number] [place] [address] 7931 Mar, [facility] [place] [facility] [address] [id number] [place] [address] 8848 Mar, [facility] [place] [facility] [address] [id number] [place] [address]- 7241 Mar, [facility] [place] [facility] [address] [id number] [place] [address] Mar, [facility] [place] [facility] [address] [id number] [place] [address]- 0325 Mar, [facility] [place] [facility] [address] [id number] [place] [address]- 2275 Mar, [facility] [place] [facility] [address] [id number] [place] [address]- 5306 Mar, [facility] [place] [facility] [address] [id number] [place] [address]- 1552 Mar, [facility] [place] [facility] [address] [id number] [place] [address]- 8083 Feb, [facility] [place] [facility] [address] [id number] [place] [address]- 6628 Feb, [facility] [place] [facility] [address] [id number] [place] [address]- 5152 Feb, [facility] [place] [facility] [address] [id number] [place] [address]- 7426 Feb, [facility] [place] [facility] [address] [id number], [place] [address] 96[address] Feb, [facility] [place] [facility] [address] [id number] [place] [address]- 4927 Feb, [facility] [place] [facility] [address] [id number] [place] [address]- 5622 Feb, [facility] [place] [facility] [address] [id number], [place] [address]- 6344 Feb, [facility] [place] [facility] [address] [id number], [place] [address]- 8797 Feb, [facility] [place] [facility] [address] [id number] [place] [address]- 0285 Feb, [facility] [place] [facility] [address] [id number] [place] [address]- 5273 Feb, [facility] [place] [facility] [address] [id number] [place] [address]- 5596 Feb, [facility] [place] [facility] [address] [id number] [place] [address]- 9753 Feb, [facility] [place] [facility] [address] [id number] [place] [address]- 4824 Feb, [facility] [place] [facility] [address] [id number] [place] [address]- 3578 Feb, [facility] [place] [facility] [address] [facility] [id number] [place] [address]- 7508 Feb, [facility] [place] [facility] [address] [id number] [place] [address]- 4605 Feb, [facility] [place] [facility] [address] [facility] [id number] [place] [address]- 2695 Jan, [facility] [place] [facility] [address] [facility] [id number] [place] [address]- 3779 Jan, [facility] [place] [facility] [address] [id number], [place] [address]- 0391 Jan, [facility] [place] [facility] [address] [id number], [place] [address]- 4282 Jan, [facility] [place] [facility] [address] [id number] [place] [address]- 8545 Jan, [facility] [place] [facility] [address] [id number] [place] [address]- 5761 Jan, [facility] [place] [facility] [address] [facility] [id number], [place] [address]- 9212 16 Jan, 2014 [facility] [place] [facility] [address] [id number] [place] [address]- 8997 Jan, [facility] [place] [facility] [address] [id number] [place] [address]- 1656 Jan, [facility] [place] [facility] [address] [id number] [place] [address]- 3716 Jan, [facility] [place] [facility] [address] [id number] [place] [address]- 7067 Jan, [facility] [place] [facility] [address] [id number] [place] [address]- 7782 Dec, [facility] [place] [facility] [address] [id number] [place] [address]- 0005 Dec, [facility] [place] [facility] [address] [id number] [place] [address]- 4610 Nov, [facility] [place] [facility] [address] [id number] [place] [address]- 4728 Nov, [facility] [place] [facility] [address] [id number] [place] [address]- 0492 Nov, [facility] [place] [facility] [address] [id number] [place] [address]- 0508 Nov, [facility] [place] [facility] [address] [id number] [place] [address]- 6394 Nov, [facility] [place] [facility] [address] [id number] [place] [address]- 6899 Nov, [facility] [place] [facility] [address] [id number] [place] [address]- 4547 Nov, [facility] [place] [facility] [address] [id number] [place] [address]- 5746 Oct, [facility] [place] [facility] [address] [id number] [place] [address]- 2546 Oct, [facility] [place] [facility] [address] [id number] [place] [address]- 3219 07 Oct, 2013 [facility] [place] [facility] [address] [id number] [place] [address]- 4292 07 Oct, 2013 [facility] [place] [facility] [address] [id number] [place] [address]- 6346 30 Sep, 2013 [facility] [place] [facility] [address] [id number] [place] [address]- 8820 30 Sep, 2013 [facility] [place] [facility] [address] [id number] [place] [address]- 7465 Sep, [facility] [place] [facility] [address] [id number] [place] [address]- 2349 Sep, [facility] [place] [facility] [address] [id number] [place] [address]- 5551 Sep, [facility] [place] [facility] [address] [id number] [place] [address]- 5556 Sep, [facility] [place] [facility] [address] [id number] [place] [address]- 1931 Sep, [facility] [place] [facility] [address] [id number] [place] [address]- 7492 Sep, [facility] [place] [facility] [address] [id number] [place] [address]- 2058 Sep, [facility] [place] [facility] [address] [id number] [place] [address]- 0264 Sep, [facility] [place] [facility] [address] [id number], [place] [address]- 6387 05 Sep, 2013 [facility] [place] [facility] [address] [id number] [place] [address]- 4289 Sep, [facility] [place] [facility] [address] [id number] [place] [address]- 2856 05 Sep, 2013 [facility] [place] [facility] [address] [id number] [place] [address]- 4366 Sep, [facility] [place] [facility] [address] [id number] [place] [address]- 2053 August, [facility] [address] [id number] [place] [address]- 2707 August, [facility] [address] [id number] [place] [address]- 3716 August, [facility] [address] [id number] [place] [address]- 1808 August, [facility] [address] [id number] [place] [address]- 1708 August, [facility] [address] [id number] [place] [address]- 2560 August, [facility] [address] [id number] [place] [address]- 7699 August, [facility] [address] [id number] [place] [address]- 8286 August, [facility] [address] [id number] [place] [address]- 7968 August, [facility] [address] [id number] [place] [address]- 3833 August, [facility] [address] [id number] [place] [address]- 8902 August, [facility] [address] [id number] [place] [address]- 9523 August, [facility] [place] [facility] [address] [id number] [place] [address]- 4096 August, [facility] [place] [facility] [address] [id number] [place] [address] August, [facility] [place] [facility] [address] [id number] [place] 1512 August, [facility] [place] [facility] [address] [id number] [place] [address]- 6158 August, [facility] [place] [facility] [address] [id number] [place] [address]- 7269 August, [facility] [place] [facility] [address] [id number] [place] [address]- 3443 August, [facility] [place] [facility] [address] [id number] [place] [address]- 1496 August, [facility] [place] [facility] [address] [id number] [place] [address]- 1656 Jul, [facility] [place] [facility] [address] [id number] [place] [address]- 0070 Jul, [facility] [place] [facility] [address] [id number] [place] [address]- 3109 Jul, [facility] [place] [facility] [address] [id number] [place] [address]- 7987 Jul, [facility] [place] [facility] [address] [id number] [place] [address]- 2683 Jun, [facility] [place] [facility] [address] [id number] [place] [address]- 0972 Jun, [facility] [place] [facility] [address] [id number] [place] [address]- 6828 Jun, [facility] [place] [facility] [address] [id number] [place] [address]- 7348 Jun, [facility] [place] [facility] [address] [id number] [place] [address]- 4208 Jun, [facility] [place] [facility] [address] [id number] [place] [address]- 9609 17 Jun, 2013 [facility] [place] [facility] [address] [id number] [place] [address]- 4620 Jun, [facility] [place] [facility] [address] [id number] [place] [address]- 8420 14 Jun, 2013 [facility] [place] [facility] [address] [id number] [place] [address]- 9477 Jun, [facility] [place] [facility] [address] [facility] [id number] [place] [address]- 5703 Jun, [facility] [place] [facility] [address] [facility] [id number] [place] [address]- 5146 May, [facility] [place] [facility] [address] [facility] [id number] [place] [address]- 6066 May, [facility] [place] [facility] [address] [facility] [id number] [place] [address]- 7814 May, [facility] [place] [facility] [address] [facility] [id number] [place] [address]- 8012 May, [facility] [place] [facility] [address] [facility] [id number] [place] [address]- 0116 May, [facility] [place] [facility] [address] [facility] [id number] [place] [address]- 5369 May, [facility] [place] [facility] [address] [facility] [id number] [place] [address]- 4473 20 May, 2013 [facility] [place] [facility] [address] [facility] [id number] [place] [address]- 7146 May, [facility] [place] [facility] [address] [facility] [id number] [place] [address]- 2979 May, [facility] [place] [facility] [address] [facility] [id number] [place] [address]- 6409 18 May, 2013 [facility] [place] [facility] [address] [facility] [id number] [place] [address]- 3411 18 May, 2013 [facility] [place] [facility] [address] [facility] [id number] [place] [address]- 2583 17 May, 2013 [facility] [place] [facility] [address] [facility] [id number] [place] [address]- 6116 May, [facility] [place] [facility] [address] [facility] [id number] [place] [address]- 0636 May, [facility] [place] [facility] [address] [id number] [place] [address]- 9587 10 May, 2013 [facility] [place] [facility] [address] [id number] [place] [address]- 8442 07 May, 2013 [facility] [place] [facility] [address] [id number] [place] [address]- 9810 May, [facility] [place] [facility] [address] [id number] [place] [address]- 5116 Apr, [facility] [place] [facility] [address] [id number] [place] [address]- 9299 Apr, [facility] [place] [facility] [address] [id number] [place] [address]- 2214 Apr, [facility] [place] [facility] [address] [id number] [place] [address]- 1546 Apr, [facility] [place] [facility] [address] [id number] [place] [address]- 1345 Apr, [facility] [place] [facility] [address] [id number] [place] [address]- 6831 Apr, [facility] [place] [facility] [address] [id number] [place] [address]- 1333 Apr, [facility] [place] [facility] [address] [id number] [place] [address]- 9981 Mar, [facility] [place] [facility] [address] [id number], [place] [address]- 2381 Mar, [facility] [place] [facility] [address] [id number] [place] [address]- 1217 Mar, [facility] [place] [facility] [address] [id number] [place] [address]- 3081 Mar, [facility] [place] [facility] [address] [id number] [place] [address]- 0343 Mar, [facility] [place] [facility] [address] [id number] [place] 3334 09 Mar, 2013 [facility] [address] [id number] [place] [address]- 9441 Mar, [facility] [place] [facility] [address] [id number] [place] 30[address] Mar, [facility] [address] [id number] [place] [address]- 0536 Mar, [facility] [place] [facility] [address] [id number] [place] [address]- 7679 Mar, [facility] [address] [id number] [place] [address]- 8638 Mar, [facility] [address] [id number] [place] [address]- 2794 Feb, [facility] [address] [id number] [place] [address]- 0554 Feb, [facility] [address] [id number] [place] [address]- 1970 Feb, [facility] [place] [facility] [address] [id number] [place] [address]- 3456 20 Feb, 2013 [facility] [address] [facility] [id number] [place] [address]- 7090 Feb, [facility] [place] [facility] [address] [id number] [place] [address]- 1461 19 Feb, 2013 [facility] [place] [facility] [address] [id number], [place] [address]- 1256 15 Feb, 2013 [facility] [place] [facility] [address] [id number] [place] [address]- 8667 14 Feb, 2013 [facility] [place] [facility] [address] [id number] [place] [address]- 1218 14 Feb, 2013 [facility] [place] [facility] [address] [id number], [place] [address]- 8743 Feb, [facility] [place] [facility] [address] [id number] [place] [address]- 5962 Feb, [facility] [place] [facility] [address] [id number] [place] [address]- 2816 Feb, [facility] [place] [facility] [address] [id number] [place] [address]- 6428 Feb, [facility] [place] [facility] [address] [id number] [place] [address]- 5889 Feb, [facility] [place] [facility] [address] [id number] [place] [address]- 3778 Feb, [facility] [place] [facility] [address] [id number] [place] [address]- 5877 Feb, [facility] [place] [facility] [address] [id number] [place] [address]- 5346 Jan, [facility] [place] [facility] [address] [id number] [place] [address]- 4954 Jan, [facility] [place] [facility] [address] [id number] [place] [address]- 0384 Jan, [facility] [place] [facility] [address] [id number] [place] [address]- 1537 Jan, [facility] [place] [facility] [address] [id number] [place] [address]- 0844 Jan, [facility] [place] [facility] [address] [id number], [place] [address]- 5973 Jan, [facility] [place] [facility] [address] [id number] [place] [address]- 7620 Jan, [facility] [place] [facility] [address] [id number] [place] [address]- 0584 Jan, [facility] [place] [facility] [address] [id number] [place] [address]- 8221 10 Jan, 2013 [facility] [place] [facility] [address] [id number] [place] [address]- 0802 27 Dec, 2012 [facility] [place] [facility] [address] [id number] [place] [address]- 1243 20 Dec, 2012 [facility] [place] [facility] [address] [id number] [place] [address]- 1896 19 Dec, 2012 [facility] [place] [facility] [address] [id number] [place] [address] 2548 10 Dec, 2012 [facility] [place] [facility] [address] [id number] [place] [address] 2540 04 Dec, 2012 [facility] [place] [facility] [address] [id number] [place] [address]- 7131 03 Dec, 2012 [facility] [place] [facility] [address] [id number] [place] [address]- 4373 Nov, [facility] [place] [facility] [address] [id number] [place] [address]- 7694 Nov, [facility] [place] [facility] [address] [id number] [place] [address]- 4329 Nov, [facility] [place] [facility] [address] [id number] [place] [address]- 3035 Nov, [facility] [place] [facility] [address] [id number] [place] [address]- 2089 Nov, [facility] [place] [facility] [address] [id number] [place] [address]- 6188 Nov, [facility] [place] [facility] [address] [id number] [place] [address]- 6596 Nov, [facility] [place] [facility] [address] [id number] [place] [address]- 4500 Nov, [facility] [place] [facility] [address] [id number] [place] [address]- 7328 Nov, [facility] [place] [facility] [address] [id number] [place] [address]- 6602 Nov, [facility] [place] [facility] [address] [id number] [place] [address]- 2900 17 Oct, 2012 [facility] [address] [id number] [place] [address]- 1173 Oct, 2012 [facility] [place] [facility] [address] [id number] [place] [address]- 1898 Oct, 2012 [facility] [address] [id number] [place] [address]- 0280 Oct, 2012 [facility] [place] [facility] [address] [id number] [place] [address]- 6606 Oct, 2012 [facility] [address] [id number] [place] [address]- 0073 Oct, [facility] [place] [facility] [address] [id number] [place] [address]- 2494 Oct, [facility] [place] [facility] [address] [id number] [place] [address]- 9267 Oct, [facility] [address] [id number] [place] [address]- 4555 Sep, [facility] [place] [facility] [address] [id number] [place] [address]- 9872 Sep, [facility] [address] [id number] [place] [address]- 9522 Sep, [facility] [place] [facility] [address] [id number] [place] [address]- 1863 Sep, [facility] [place] [facility] [address] [id number] [place] [address]- 9473 Sep, [facility] [place] [facility] [address] [id number] [place] [address]- 7140 Sep, [facility] [place] [facility] [address] [id number] [place] [address]- 8044 Sep, [facility] [place] [facility] [address] [id number] [place] [address]- 3070 Sep, [facility] [address] [id number] [place] [address] August, [facility] [address] [id number] [place] [address] August[facility] [address] [id number] [place] [address] 269[address] August, [facility] [address] [id number] [place] [address] August, [facility] [address] [id number] [place] [address] August, [facility] [address] [id number] [place] [address] Jul, [facility] [address] [id number] [place] [address] Jul, [facility] [address] [id number] [place] [address] Jul, [facility] [address] [id number] [place] [address]99 Jul, [facility] [address] [id number] [address] Jul, [facility] [address] [id number], [place] [address] 18 Jun, 2012 [facility] [place] [facility] [address] [id number] [address] 18 Jun, 2012 [facility] [place] [facility] [address] [id number] [place] [address]67 15 Jun, 2012 [facility] [place] [facility] [address] [id number] [place] [address]- 8736 14 Jun, 2012 [facility] [place] [facility] [address] [id number] [address] 12 Jun, 2012 [facility] [place] [facility] [address] [id number], [place] [address]25 08 Jun, 2012 [facility] [address] [id number] [place] [address] Jun, [facility] [address] [id number] [place] [address] 4907 Jun, [facility] [address] [id number] [place] [address] 7183 Jun, [facility] [address] [id number] [place] [address]797 May, [facility] [address] [id number] [place] [address] May, [facility] [address] [id number] [place] [address] 8638 May, [facility] [address] [id number] [place] [address] 2569 May, [facility] [address] [id number] [place] [address]108 Apr, [facility] [address] [id number] [place] [address] 6541 Apr, [facility] [address] [id number] [place] [address] 4778 Apr, [facility] [address] [id number] [place] [address]- 0411 Apr, [facility] [address] [id number] [place] [address]368 Apr, [facility] [address] [id number] [place] [address] 5701 Apr, [facility] [address] [id number] [place] [address] 8497 Apr, [facility] [address] [id number] [place] [address] Mar, [facility] [id number] Mar[facility] [address] [id number] [place] [address] 5186 Mar, [facility] [address] [id number] [place] [address]- 1566 Mar, [facility] [address] [id number] [place] [address]- 9286 Mar, [facility] [address] [id number] [place] [address] 1399 Mar, [facility] [address] [id number] [place] [address] 8398 Mar, [facility] [address] [id number] [place] [address] Mar, [facility] [address] [id number] [place] [address] 4613 Mar, [facility] [address] [id number] [place] [address]- [address]97 Mar, [facility] [address] [id number] [place] [address]- 8068 Mar, [facility] [address] [id number] [place] [address]809 Mar, [facility] [address] [id number] [place] [address]- 1846 Mar, [facility] [address] [id number] [place] [address]- 4036 Mar, [facility] [address] [id number] [place] [address] 7916 Mar, [facility] [address] [id number] [place] [address]- 9476 Mar, [facility] [address] [id number] [place] [address]- 9962 Mar, [facility] [place] [facility] [address] [id number] [place] [address]- 9785 Feb, [facility] [place] [facility] [address] [id number] [place] [address]39 Feb, [facility] [place] [facility] [address] [id number] [place] [address]- 3261 Feb, [facility] [place] [facility] [address] [id number] [place] [address]- 9048 Feb, [facility] [place] [facility] [address] [id number] [place] [address]- 1868 Feb, [facility] [place] [facility] [address] [id number] [place] [address]- 1333 Feb, [facility] [place] [facility] [address] [id number] [place] [address]- [address]343 Feb, [facility] [place] [facility] [address] [id number] [place] [address]- 9337 Feb, [facility] [place] [facility] [address] [id number] [place] [address]- 2006 Feb, [facility] [place] [facility] [address] [id number] [place] [address]- 1327 Feb, [facility] [place] [facility] [address] [id number], [place] [address] 277[address] Feb, [facility] [place] [facility] [address] [id number], [place] [address] Feb, [facility] [place] [facility] [address] [id number] [place] [address]- 5397 Feb, [facility] [place] [facility] [address] [id number] [place] [address]- 4363 Feb, [facility] [place] [facility] [address] [id number] [place] [address]- 8139 Feb, [facility] [place] [facility] [address] [id number] [place] [address]- 9513 Feb, [facility] [place] [facility] [address] [id number] [place] [address]- [address]222 Jan, 2011 [facility] [place] [facility] [address] [id number] [place] [address]- 3301 Jan, [facility] [place] [facility] [address] [id number] [place] [address]- 4981 Jan, [facility] [place] [facility] [address] [id number] [place] [address]- 6316 Jan, [facility] [place] [facility] [address] [id number] [place] [address]- 6784 Jan, [facility] [place] [facility] [address] [id number] [place] [address]- 7729 Jan, [facility] [place] [facility] [address] [id number] [place] [address]- 4726 Jan, [facility] [place] [facility] [address] [address] [id number] [address] Jan, [facility] [place] [facility] [address] [id number] [place] [address] Jan, [facility] [place] [facility] [address] [id number] [address] Jan, [facility] [place] [facility] [address] [id number], [place] [address] Jan, [facility] [place] [facility] [address] [id number], [place] [address] Jan, [facility] [place] [facility] [address] [id number], [place] [address] Jan, [facility] [place] [facility] [address] [facility] [id number], [place] [address] Jan, [facility] [place] [facility] [address] [facility] [id number] [address] Jan, [facility] [place] [facility] [address] [id number] [place] [address] 05 Jan, 2012 [facility] [place] [facility] [address] [id number] [place] [address] 04 Jan, 2012 [facility] [place] [facility] [address] [id number] [place] [address] 2546 21 Dec, 2011 [facility] [place] [facility] [address] [id number] [place] [address] 2546 20 Dec, 2011 [facility] [place] [facility] [address] [id number] [place] [address] 2546 18 Dec, 2011 [facility] [place] [facility] [address] [id number] [place] [address] 2546 18 Dec, 2011 [facility] [place] [facility] [address] [id number] [place] [address] 10 Dec, 2011 [facility] [place] [facility] [address] [id number] [place] [address] 5683 10 Dec, 2011 [facility] [place] [facility] [address] [id number] [place] [address] 2547 10 Dec, 2011 [facility] [place] [facility] [address] [id number] [place] [address] 2545 07 Dec, 2011 [facility] [place] [facility] [address] [id number] [place] [address] 2545 30 Nov, 2011 [facility] [place] [facility] [address] [id number] [place] [address] 2546 25 Nov, 2011 [facility] [place] [facility] [address] [id number] [place] [address] 2546 24 Nov, 2011 [facility] [place] [facility] [address] [id number] [place] [address] 2546 Nov, [facility] [place] [facility] [address] [id number] [place] [address] 2546 Nov, [facility] [place] [facility] [address] [id number] [place] [address] 3687 Nov, [facility] [place] [facility] [address] [id number] [place] [address]252 Oct, [facility] [place] [facility] [address] [id number] [place] [address]- 6986 Oct, [facility] [place] [facility] [address] [id number] [place] [address]- 1066 Oct, [facility] [place] [facility] [address] [id number] [place] [address]- 1060 Oct, [facility] [place] [facility] [address] [id number] [place] [address]- 3646 Oct, [facility] [place] [facility] [address] [id number] [place] [address] 3936 Oct, [facility] [place] [facility] [address] [id number] [place] [address]- 1442 Oct, [facility] [place] [facility] [address] [id number] [place] [address]- [address] Sep, [facility] [place] [facility] [address] [id number] [place] [address] 1670 Sep, [facility] [place] [facility] [address] [id number] [place] [address] 49[address] Sep, [facility] [place] [facility] [address] [id number] [place] [address]- 4697 Sep, [facility] [place] [facility] [address] [id number], [place] [address] 19 Sep, 2011 [facility] [place] [facility] [address] [id number] [place] [address]- 4553 15 Sep, 2011 [facility] [place] [facility] [address] [id number] [place] [address]- 2754 14 Sep, 2011 [facility] [place] [facility] [address] [id number] [place] [address]- 0327 11 Sep, 2011 [facility] [place] [facility] [address] [id number] [place] [address] 7719 Sep, [facility] [address] [id number] [place] [address] Sep, [facility] [place] [facility] [address] [id number] [place] [address]- 1414 August, [facility] [address] [id number] [place] [address] 4677 August, [facility] [address] [id number] [place] [address] 7060 August, [facility] [address] [id number] [place] [address]- 0791 August, [facility] [address] [id number] [place] [address] 4855 August, [facility] [address] [id number] [place] [address]- 9274 Jul, [facility] [address] [id number] [place] [address] 289[address] Jul, [facility] [address] [id number] [place] [address] 5916 Jul, [facility] [address] [id number] [place] [address] 6635 Jul, [facility] [address] [id number] [place] [address] 2873 Jul, [facility] [address] [id number] [place] [address] 4236 Jul, [facility] [place] [facility] [address] [id number] [place] [address] 4831 Jul, [facility] [place] [facility] [address] [id number] [place] [address]- 5173 Jun, [facility] [place] [facility] [address] [id number] [place] [address] 7016 Jun, [facility] [place] [facility] [address] [id number] [place] [address]- 6860 Jun, [facility] [place] [facility] [address] [id number] [place] [address]- [address]757 Jun, [facility] [place] [facility] [address] [id number] [place] [address]- 3034 Jun, [facility] [place] [facility] [address] [id number] [place] [address]- 1423 May, [facility] [place] [facility] [address] [id number] [place] [address]- 1763 May, [facility] [place] [facility] [address] [id number] [place] [address]- 9493 May, [facility] [place] [facility] [address] [id number] [place] [address]- 1495 May, [facility] [place] [facility] [address] [id number] [place] [address]- 5404 May, [facility] [place] [facility] [address] [id number] [place] [address]- 1529 May, [facility] [place] [facility] [address] [id number] [place] [address]- 6926 Apr, [facility] [place] [facility] [address] [id number] [place] [address]- 5345 Mar, [facility] [place] [facility] [address] [id number] [place] [address]- 2988 Feb, [facility] [place] [facility] [address] [id number] [place] [address]- 0775 Feb, [facility] [place] [facility] [address] [id number] [place] [address]- 6404 Feb, [facility] [place] [facility] [address] [id number] [place] [address]- 5788 Feb, [facility] [place] [facility] [address] [id number] [place] [address]- 6387 31 Jan, 2011 [facility] [address] [id number] [place] [address]- 6726 27 Jan, 2011 [facility] [place] [facility] [address] [id number] [place] [address]- 1286 26 Jan, 2011 [facility] [address] [id number] [place] [address]- 4506 24 Jan, 2011 [facility] [place] [facility] [address] [id number] [place] [address]- 0025 14 Jan, 2011 [facility] [address] [id number] [place] [address]- 2766 19 Dec, 2010 [facility] [place] [facility] [address] [id number] [place] [address]- 3931 Oct, [facility] [address] [id number] [place] [address]- 2316 August, [facility] [place] [facility] [address] [id number] [place] [address]- 1895 29 Mar, 2010 [facility] [place] [facility] [address] [id number] [place] [address]- 4940 27 Mar, 2010 [facility] [place] [facility] [address] [id number] [place] [address]- 9713 16 Mar, 2010 [facility] [place] [facility] [address] [id number] [place] [address] 2546 15 Mar, 2010 [facility] [place] [facility] [address] [id number] [place] [address] 254 15 Mar, 2010 [facility] [place] [facility] [address] [id number] [place] [address] 254 08 Mar, 2010 [facility] [place] [facility] [address] [id number] [place] [address]- 2546 03 Mar, 2010 [facility] [place] [facility] [address] [id number] [place] [address]- 1045 24 Feb, 2010 [facility] [place] [facility] [address] [id number] [place] [address]- 3738 24 Feb, 2010 [facility] [place] [facility] [address] [id number] [place] [address]- 1840 15 Feb, 2010 [facility] [place] [facility] [address] [id number] [place] [address]- 7308 19 Jan, 2010 [facility] [place] [facility] [address] [id number] [place] [address]- 9554 18 Jan, 2010 [facility] [place] [facility] [address] [id number] [place] [address]- 5659 18 Jan, 2010 [facility] [place] [facility] [address] [id number] [place] [address]- 1645 Nov, [facility] [place] [facility] [address] [id number] [place] [address]- 5874 Sep, [facility] [place] [facility] [address] [id number] [place] [address]- 1494 August, [facility] [place] [facility] [address] [id number] [place] [address]- 4403 30 Mar, 2009 [facility] [place] [facility] [address] [id number] [place] [address]- 5515 07 Mar, 2009 [facility] [place] [facility] [address] [facility] [id number] [place] [address]- 2416 17 Feb, 2009 [facility] [place] [facility] [address] [id number], [place] [address] Feb, [facility] [place] [facility] [address] [id number] [place] [address]- 3239 10 Feb, 2009 [facility] [place] [facility] [address] [id number] [place] [address]- 1922 10 Feb, 2009 [facility] [place] [facility] [address] [id number] [place] [address]- 4965 06 Feb, 2009 [facility] [place] [facility] [address] [id number], [place] [address]- 7006 Jan, [facility] [address] [id number], [place] [address]- 9821 Jan, [facility] [id number], [place] [address]- 4[address] Jan, [facility] [id number], [place] [address]- 6714 Jan, [facility] [id number], [place] [address]- 1602 Nov, [facility] [id number], [place] [address]- 5632 Sep, [facility] [id number] [place] [address]- 5655 August, [facility] [id number], [place] [address]- 6765 Jul, [facility] [id number], [place] [address]- 6212 May, IMMUNIZATIONS No Known Immunizations SOCIAL HISTORY Never Assessed REASON FOR VISIT Diabetic neuropathy / Hospital f/u / liver enzymes [facility] PLAN OF CARE VITAL SIGNS Height 64 in 2017-07-28 Weight 157 lbs 2017-07-28 Temperature 98.6 degrees Fahrenheit 2017-07-28 Heart Rate 82 bpm 2017-07-28 Respiratory Rate 20 2017-07-28 BMI 26.95 kg/m2 2017-07-28 Blood pressure systolic 100 mmHg 2017-07-28 Blood pressure diastolic 64 mmHg 2017-07-28 MEDICATIONS Medication Instructions Dosage Frequency Start Date End Date Duration Status Toprol XL 25 MG Orally Once a day 1 tablet 24h Active Oxybutynin Chloride 5 mg Orally Twice a day 1 tablet 12h Jul, 30 day(s) Active Ventolin HFA 108 (90 Base) MCG/ACT INHALE 2 PUFFS EVERY 4 HOURS NEEDED 16 Active Hydrocodone-Acetaminophen 5-325 MG Orally every 6 hrs 1 tablet as needed 6h Jun, Active Spiriva HandiHaler 18 MCG Inhalation Once a day 1 capsule 24h Active Diltiazem HCl ER 240 MG Orally Once a day 1 capsule 24h Active Abilify 10 MG Orally Once a day 1 tablet 24h 90 days Active Ropinirole HCl 2 MG TAKE 1 TABLET ONE TIME DAILY AT BEDTIME 90 Active Calcium Active Tramadol HCl 50 MG Orally every 4 hrs 1 tablet as needed 4h Not- Taking Fluticasone Propionate 50 MCG/ACT Nasally 2 times a day 2 sprays in each nostril 12h 30 days Active Alendronate Sodium 70 MG TAKE 1 TABLET EVERY WEEK Active Omeprazole 40 mg Orally Once a day 1 capsule 24h Active Lomotil 2.5-0.025 mg Orally Four times a day TWO TABLETS 6h 30 Active Symbicort 160-4.5 MCG/ACT INHALE 2 PUFFS TWICE DAILY, IN THE MORNING AND IN THE EVENING 90 Active HydrALAZINE HCl 25 MG TAKE 1 TABLET THREE TIMES DAILY 90 Not- Taking Eliquis 5 MG Orally 2 times a day 12h Active Glucometer 1 test blood sugar Jul, Active Zofran ODT 4 mg Orally every 4 hrs 1 tablet on the tongue and allow to dissolve 4h Jul, 1 days Active Lamictal 25 MG Orally every night 3 tablets Apr, 30 days Active Magnesium Active Farxiga 5 mg Orally Once a day 1 tablet 24h Jul, Oct, 30 day(s) Active Baclofen 20 MG TAKE ONE TABLET BY MOUTH THREE TIMES DAILY WITH FOOD OR MILK 30 Active Nitroglycerin 0.4 MG Active Singulair 10 MG TAKE 1 TABLET ONE TIME DAILY 90 Active Welchol 625 MG Orally twice a day 2 tablets 12h Active Vitamin D 50,000 Orally once a week 1 tablet Active Namenda 10 MG TAKE 1 TABLET EVERY DAY Active Flonase 50 MCG/ACT USE 2 SPRAYS IN EACH NOSTRIL ONE TIME DAILY 90 Active Albuterol Sulfate 2.5 mg /3 mL (0.083 %) 1 Each by Inhalation route every 4 hours for cough and wheeze PRN for wheezing or cough Jun, Not-Taking Melatonin 5 MG Orally Once a day 1 tablet at bedtime as needed with food 24h Jun, 30 day(s) Not-Taking HydrOXYzine HCl 50 MG Orally three times a day as needed 1 tablet 30 days Active Mupirocin 2 % Externally two times a day 1 application to affected area 12h Active Lyrica 75 MG Orally Three times a day 1 capsule 8h Jun, Active Xifaxan 550 MG Orally Three times a day 1 tablet 8h Active Remeron 45 MG Orally Once a day at bedtime 1 tablet Feb, 30 days Active Benefiber - Active Cetirizine HCl 10 MG Orally Once a day 1 tablet as needed 24h Not- Taking Pantoprazole Sodium 40 MG Orally 2 times a day 1 tablet 12h Active Gabapentin 600 MG TAKE 1 TABLET THREE TIMES DAILY 90 Active Oxygen 5 inhalation all the time Active RESULTS No Results PROCEDURES Procedure Date Ordered Result Body Site [facility] VISIT ESTABLISHED PATIENT July 28, 2017 INSTRUCTIONS MEDICATIONS ADMINISTERED No Known [...] Knee Surgery 07/16/17 Hospitalization History [facility] [place]- left hand/wrist swelling 10/09/2017
--- OUTSIDE RECORDS SUMMARY | 2018-01-01 12:12 | XMS REPORT ---
Author Author SENAIT DUNLAP [facility] Address [address] [place] [address] Care Team Providers Care Product Support Specialist Name Role Phone SENAIT DUNLAP Unavailable PROBLEMS Type Condition ICD9-CM Code GJR45-GZ Code Onset Dates Condition Status SNOMED Code Problem History of common bile duct surgery Z98.89 Active 275181800 Problem Barretts esophagus K22.70 Active 132655291 Problem 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 Active 59427140 Problem Colon polyp K63.5 Active 91469541 Problem Bilateral low back pain without sciatica M54.5 Active 246404578 Problem Screening breast examination Z12.39 Active 721383086 Problem Postmenopausal Z78.0 Active 39010083 Problem Osteopenia M85.80 Active 775320378 Problem Cigarette nicotine dependence without complication F17.210 Active 69372960 Problem Type 2 diabetes mellitus with diabetic peripheral angiopathy without gangrene E11.51 Active 418521312 Problem Vascular dementia without behavioral disturbance F01.50 Active [id number] Problem Unspecified atherosclerosis of [place] arteries of extremities, unspecified extremity I70.209 Active 914453902792460 Problem Arthritis M19.90 Active 0971981 Problem Chronic atrial fibrillation I48.2 Active 085371402 Problem Chronic obstructive pulmonary disease with acute lower respiratory infection J44.0 Active 523610526 Problem Other chronic pancreatitis K86.1 Active 146430874 Problem Stress incontinence of urine N39.3 Active 12312486 Problem Controlled type 2 diabetes mellitus without complication, without long -term current use of insulin E11.9 Active 274838760 Problem Unspecified psychosis F29 Active 33225636 Problem Xeroderma Q80.9 Active 87849605 Problem COPD (chronic obstructive pulmonary disease) J44.9 Active 73254095 Problem Dementia without behavioral disturbance, unspecified dementia type F03.90 Active 78222073 Problem Gastroparesis K31.84 Active 413370709 Problem Type 2 diabetes mellitus with diabetic neuropathy, without long-term current use of insulin E11.40 Active 94569360 Problem Osteoporosis M81.0 Active 07792504 Problem Atherosclerosis of [place] artery of both lower extremities with intermittent claudication I70.213 Active 474793022717193 Problem Hyperlipidemia E78.5 Active 37298699 Problem Diabetic polyneuropathy associated with type 2 diabetes mellitus E11.42 Active 99686595 Problem Essential tremor G25.0 Active 46142684 Problem Atherosclerotic heart disease of [place]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 I25.118 Active 4671774594338 Problem Generalized anxiety disorder F41.1 Active 568284773 Problem Gastroesophageal reflux disease, esophagitis presence not specified K21.9 Active 929552732 Problem Coronary artery disease involving [place] coronary artery of [place] 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 I25.118 Active 5910443220232 Problem Postconcussion syndrome F07.81 Active 61327385 Problem Chronic pain syndrome G89.4 Active 599413531 Problem Migraine without aura and without status migrainosus, not intractable G43.009 Active 835109587 Problem Paroxysmal atrial fibrillation I48.0 Active 422751005 Problem Migraine without aura and with status migrainosus, not intractable G43.001 Active 222466336 Problem Cervicalgia M54.2 Active 9822266773627 Problem Acute exacerbation of chronic obstructive pulmonary disease (COPD) J44.1 Active 960869043 Problem Major depressive disorder, recurrent episode, moderate F33.1 Active 011773736 Problem Crohn''s disease without complication, unspecified gastrointestinal tract location K50.90 Active 00891976 Problem Chronic fatigue R53.82 Active 42190946 Problem Bipolar affective disorder, currently depressed, moderate F31.32 Active 214745328 ALLERGIES No Information ENCOUNTERS Encounter Location Date Diagnosis [id number] [facility] [id number] [address] Nov, [facility] [id number] [address] Nov, [place] [id number] [address] Oct, [facility] [id number] [address] Oct, Bipolar affective disorder, currently depressed, moderate F31.32 ; Vascular dementia without behavioral disturbance F01.50 and Generalized anxiety disorder F41.1 [facility] [id number] [place] [address] 23084- 4387 Oct, [facility] [id number] [place] [address] 43123- 8642 Oct, [facility] [id number] [place] [address] 38332- 8267 Oct, Edema of both legs R60.0 [facility] [id number] [place] [address] 28316- 1768 Oct, [facility] [id number] [place] [address] 18806- 8039 Sep, [facility] [id number] [place] [address] 28985- 9865 Sep, [facility] [id number] [place] [address] 31673- 3782 Sep, [facility] [id number] [place] [address] 00105- 4524 Sep, Encounter for well woman exam with routine gynecological exam Z01.419 ; Screening for STDs (sexually transmitted diseases) Z11.3 ; Screening breast examination Z12.31 and Overweight (BMI 25.0-29.9) E66.3 [facility] [address] [address] 8284 Sep, [facility] [id number] [address] 9598 Sep, [facility] [id number] [place] [address] 40442- 8813 Sep, [facility] [id number] [place] [address] 03332- 5780 August, [facility] [place] [id number] [address] 9423 August, [facility] [id number] [address] 5237 August, Type 2 diabetes mellitus with diabetic neuropathy, without long-term current use of insulin E11.40 and Sprain of right ankle, unspecified ligament, initial encounter S93.401A [facility] [id number] [address] 8363 August, [facility] [place] [id number] [place] [address] 35711- 8040 August, [facility] [id number] [place] [address] 19685- 3252 August, [facility] [id number] [place] [address] 87501- 7780 August, Gastroesophageal reflux disease, esophagitis presence not specified K21.9 [facility] [id number] [place] [address] 71263- 2878 August, [facility] [id number] [place] [address] 34559- 6565 August, [facility] [id number] [place] [address] 16650- 7288 August, [facility] [id number] [place] [address] 51644- 7709 August, Type 2 diabetes mellitus with diabetic neuropathy, without long-term current use of insulin E11.40 and Elevated liver enzymes R74.8 [facility] [id number] [place] [address] 88119- 5236 Jul, [facility] [id number] [place] [address] 09818- 9525 Jul, Cough R05 [facility] [id number] [place] [address] 68755- 5284 Jul, [facility] [place] [address] [address] 9592 Jul, [facility] [id number] [place] [address] 37565- 6644 Jul, Bipolar affective disorder, currently depressed, moderate F31.32 ; Vascular dementia without behavioral disturbance F01.50 and Generalized anxiety disorder F41.1 [facility] [id number] [place] [address] 95577- 4624 Jul, [facility] [address] 24590- 8873 Jul, Type 2 diabetes mellitus with diabetic neuropathy, without long-term current use of insulin E11.40 and Elevated liver enzymes R74.8 [facility] [address] 41840- 2746 Jul, [facility] [id number] [place] [address] 43697- 6445 Jul, [facility] [id number] [place] [address] 05318- 8203 Jul, [facility] [id number] [place] [address] 89718- 1139 Jul, Post-menopausal Z78.0 [facility] [address] 80441- 3073 Jul, Stress incontinence of urine N39.3 [facility] [id number] [place] [address] 39692- 9021 Jul, [facility] [id number] [place] [address] 78880- 3822 Jul, [facility] [id number] [place] [address] 32995- 2879 Jul, Stress incontinence of urine N39.3 and Cough R05 [facility] [id number] [place] [address] 28238- 2481 Jul, [facility] [place] [id number] [place] [address] 11401- 6179 Jul, [facility] [id number] [place] [address] 91229- 2506 Jul, [facility] [place] [id number] [place] [address] 02060- 1291 Jul, Gastroesophageal reflux disease, esophagitis presence not specified K21.9 [facility] [id number] [place] [address] 23378- 1903 Jun, Diabetic polyneuropathy associated with type 2 diabetes mellitus E11.42 [facility] [id number] [place] [address] 99807- 1873 Jun, Diabetic polyneuropathy associated with type 2 diabetes mellitus E11.42 ; Coronary artery disease involving [place] coronary artery of [place] 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 I25.118 and Paroxysmal atrial fibrillation I48.0 [place] [id number] [place] [address] 48371- 2729 Jun, [place] [id number] [place] [address] 82337- 6877 Jun, [facility] [id number] [place] [address] 66110 2540 Jun, Gastroenteritis K52.9 [facility] [id number] [place] [address] 34262 2546 Jun, Gastroenteritis K52.9 [facility] [id number] [place] [address] 99834 2545 Jun, [facility] [id number] [place] [address] 00129 2548 Jun, [facility] [id number] [place] [address] 47279- 0648 Jun, Sprain of right ankle, unspecified ligament, initial encounter S93.401A ; Type 2 diabetes mellitus with diabetic neuropathy, without long-term current use of insulin E11.40 ; Atherosclerosis of [place] artery of both lower extremities with intermittent claudication I70.213 ; Atherosclerotic heart disease of [place]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 I25.118 ; Chronic atrial fibrillation I48.2 and Crohn''s disease without complication, unspecified gastrointestinal tract location K50.90 [facility] [id number] [place] [address] 48942 -4912 17 Jun, 2017 Cough R05 and Chronic obstructive pulmonary disease with acute lower respiratory infection J44.0 [facility] [id number] [place] [address] 13317- 8905 Jun, [place] [id number] [place] [address] 20266- 0668 Jun, Coughing R05 ; Unspecified atherosclerosis of [place] arteries of extremities, unspecified extremity I70.209 ; Type 2 diabetes mellitus with diabetic peripheral angiopathy without gangrene E11.51 ; Crohn''s disease without complication, unspecified gastrointestinal tract location K50.90 ; Other chronic pancreatitis K86.1 and Chronic atrial fibrillation I48.2 [facility] [id number] [place] [address] 09915 -4424 Jun, [place] [id number] [place] [address] 56508- 5734 Jun, Bipolar affective disorder, currently depressed, moderate F31.32 ; Vascular dementia without behavioral disturbance F01.50 and Generalized anxiety disorder F41.1 [place] [id number] [place] [address] 14049- 3292 May, Generalized anxiety disorder F41.1 [place] [id number] [place] [address] 52434- 5579 May, [place] [id number] [place] [address] 44823- 1095 May, [place] [id number] [place] [address] 02176- 0199 May, Coughing R05 [place] [id number] [place] [address] 12796- 3781 09 May, 2017 [place] [id number] [place] [address] 68095- 4444 May, Bipolar affective disorder, currently depressed, moderate F31.32 ; Vascular dementia without behavioral disturbance F01.50 and Generalized anxiety disorder F41.1 [place] [id number] [place] [address] 81851- 3123 Apr, Generalized anxiety disorder F41.1 [place] [id number] [place] [address] 90956- 5009 Apr, [place] [id number] [place] [address] 44532- 7397 Apr, Vascular dementia without behavioral disturbance F01.50 ; Generalized anxiety disorder F41.1 and Bipolar affective disorder, currently depressed, moderate F31.32 [place] [id number] [place] [address] 58521- 8093 Apr, Generalized anxiety disorder F41.1 [facility] [id number] [place] [address] 17619 -6540 Apr, Cough R05 and Acute exacerbation of chronic obstructive pulmonary disease (COPD) J44.1 [place] [id number] [place] [address] 69312- 4706 Apr, [facility] [id number] [place] [address] 07660 -2533 Mar, Cough R05 and Cigarette nicotine dependence without complication F17.210 [place] [id number] [place] [address] 30873- 8897 Mar, [place] [id number] [place] [address] 11428- 5148 Feb, Generalized anxiety disorder F41.1 ; Major depressive disorder, recurrent episode, moderate F33.1 ; Vascular dementia without behavioral disturbance F01.50 and Unspecified psychosis F29 [place] [id number] [place] [address] 39184- 6773 Feb, [place] [id number] [place] [address] 94275- 7095 Feb, [place] [id number] [place] [address] 99424- 8293 Feb, Generalized anxiety disorder F41.1 [place] [id number] [place] [address] 60544- 7633 Feb, Generalized anxiety disorder F41.1 [place] [address] 34892- 4002 Feb, Dizziness R42 ; Chronic fatigue R53.82 ; Postconcussion syndrome F07.81 ; Fall, initial encounter W19.XXXA and Disorientation R41.0 [place] [address] 54712- 6974 Feb, Postconcussion syndrome F07.81 ; Injury of head, initial encounter S09.90XA ; Fall, initial encounter W19.XXXA ; Disorientation R41.0 and Acute cystitis with hematuria N30.01 [place] [address] 23977- 9379 Jan, Gastroesophageal reflux disease, esophagitis presence not specified K21.9 ; Post-menopausal Z78.0 and Migraine without aura and without status migrainosus, not intractable G43.009 [place] [id number] [place] [address] 25260- 5909 Jan, [place] [id number] [place] [address] 53903- 2028 Jan, Generalized anxiety disorder F41.1 ; Major depressive disorder, recurrent episode, moderate F33.1 ; Vascular dementia without behavioral disturbance F01.50 and Unspecified psychosis F29 [place] [address] 58395- 8940 Jan, Pneumonia of left lower lobe due to infectious organism J18.1 [place] [id number] [place] [address] 06101- 3305 Jan, Migraine without aura and with status migrainosus, not intractable G43.001 [facility] [address] [address] 04 Jan, 2017 Migraine without aura and without status migrainosus, not intractable G43.009 [facility] [address] [place] [address] 17055- 8231 19 Dec, 2016 Hematoma T14.8 [facility] [id number] [place] [address] 72733- 1805 Dec, [facility] [id number] [place] [address] 99835 -3060 Nov, Fatigue, unspecified type R53.83 [place] [id number] [place] [address] 60327- 7140 Nov, Scabies B86 and Coronary artery disease involving [place] coronary artery of [place] 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 I25.118 [place] [id number] [place] [address] 91524- 4622 Nov, [facility] [id number] [place] [address] 88604- 1051 Nov, [place] [id number] [place] [address] 62705- 8900 Oct, [place] [id number] [place] [address] 11179- 9816 Oct, Generalized anxiety disorder F41.1 and Major depressive disorder, recurrent episode, moderate F33.1 [facility] [id number] [place] [address] 01397- 2902 Oct, Cramp of both lower extremities R25.2 [place] [id number] [place] [address] 03723- 0311 Oct, Leg cramps R25.2 [place] [id number] [place] [address] 14177- 6118 Oct, Chronic pain syndrome G89.4 [place] [address] [address]- 6317 17 Oct, 2016 [facility] [id number] [place] [address] 39745- 6210 14 Oct, 2016 [facility] [id number] [place] [address] 40379- 3698 11 Oct, 2016 Routine gynecological examination Z01.419 and Screening for breast cancer Z12.31 [place] [id number] [place] [address] 71649- 6036 28 Sep, 2016 Diarrhea R19.7 [place] [id number] [place] [address] 65426- 9086 Sep, Back pain M54.9 [place] [id number] [place] [address] 41191- 2098 Sep, [place] [id number] [place] [address] 39818- 8957 Sep, [facility] [id number] [place] [address] 36589 -9758 August, Xeroderma Q80.9 [place] [id number] [place] [address] 30412- 8295 August, Dementia without behavioral disturbance, unspecified dementia type F03.90 [place] [id number] [place] [address] 87151- 7772 August, Chronic pain syndrome G89.4 [place] [id number] [place] [address] 83060- 5622 August, [facility] [id number] [place] [address] 28062- 4501 August, Hyperlipidemia E78.5 ; Other fatigue R53.83 and Other specified hypotension I95.89 [facility] [address] [address] August, Dysuria R30.0 ; Other fatigue R53.83 and Other specified hypotension I95.89 [facility] [id number] [place] [address] 63183- 2854 August, [facility] [address] 75272- 5252 Jul, Pain in left knee M25.562 and Gastroenteritis K52.9 [facility] [address] 09519- 0244 Jul, [facility] [address] 34711- 6494 Jul, Diarrhea R19.7 [facility] [address] [address] Jul, Spider bite, accidental or unintentional, initial encounter T63.[address]A [place] [address] [address] Jul, Primary osteoarthritis of right knee M17.11 and Arthritis M19.90 [facility] [place] [address] [address] Jul, Generalized anxiety disorder F41.1 and Major depressive disorder, recurrent episode, moderate F33.1 [facility] [place] [address] [place] [id number] [place] [address] Jul, Type 2 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 and Temporal headache R51 [facility] [place] [address] [place] [id number] [place] [address] Jul, Back pain M54.9 [facility] [place] [address] [place] [place] [id number] [place] [phone] Jul, [facility] [place] [address] [address] Jul, [facility] [place] [address] [place] [place] [id number] [place] [phone] Jun, Nausea R11.0 [facility] [address] [place] [address] Jun, Acute suppurative otitis media of both ears without spontaneous rupture of tympanic membranes, recurrence not specified H66.003 and COPD exacerbation J44.1 [facility] [place] [address] 35582- 2637 Jun, Generalized anxiety disorder F41.1 [place] [address] 68290- 9828 16 Jun, 2016 [facility] [address] 74180 -5248 Jun, [facility] [address] 39125 -8775 Jun, Shortness of breath R06.02 and COPD exacerbation J44.1 [place] [address] 45304- 6647 Jun, Eczema, unspecified type L30.9 [place] [address] 44595- 2112 Jun, [place] [address] 24709- 7689 May, [place] [address] [place] [id number] [place] [address] 34584- 3888 May, Muscle cramping R25.2 [place] [address] [place] [id number] [place] [address] 10523- 0086 May, [place] [address] 25640- 5792 Apr, Diarrhea R19.7 [place] [address] 91052- 5856 Apr, [place] [address] [place] [id number] [place] [address] 34186- 5980 Apr, Chronic pain syndrome G89.4 [place] [address] [place] [id number] [place] [address] 78906- 9336 16 Apr, 2016 Cramp of both lower extremities R25.2 and Vascular dementia without behavioral disturbance F01.50 [place] [address] 46410- 7827 Apr, Type 2 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 and Cigarette nicotine dependence without complication F17.210 [place] [address] 15884- 1698 Mar, Generalized anxiety disorder F41.1 [place] [address] 57334- 8886 Feb, Generalized anxiety disorder F41.1 and Major depressive disorder, recurrent episode, moderate F33.1 [place] [address] 05527- 4676 Feb, [facility] [address] 83372 -4586 Feb, Dysuria R30.0 and Acute cystitis with hematuria N30.01 [place] [address] 70067- 7865 Jan, [place] [address] 25135- 7519 Jan, [place] [address] 43547- 6334 Jan, [place] [address] 50790- 3037 Jan, [facility] [address] 64282 -2389 Jan, Wasp sting, accidental or unintentional, initial encounter T63.461A [place] [address] 61540- 8995 06 Jan, 2016 Encounter for immunization Z23 [place] [address] 91814- 7402 Jan, [facility] [place] [address] [address] 5165 Jan, [facility] [place] [address] [place] [id number] [place] [address] 81011- 9673 28 Dec, 2015 Generalized anxiety disorder F41.1 and Major depressive disorder, recurrent episode, moderate F33.1 [facility] [place] [address] [place] [id number] [place] [address] 38997- 0994 21 Dec, 2015 Routine gynecological examination Z01.419 ; Postmenopausal Z78.0 ; Screening breast examination Z12.39 ; Osteopenia M85.80 and Breast cancer screening Z12.39 [facility] [place] [address] [place] [id number] [place] [address] 39072- 5160 20 Dec, 2015 [facility] [place] [address] [place] [id number] [place] [address] 43687- 8214 19 Dec, 2015 [facility] [place] [address] [place] [id number] [place] [address] 64239- 9342 16 Dec, 2015 [facility] [place] [address] [place] [id number] [place] [address] 27539- 4931 16 Dec, 2015 [facility] [place] [address] [place] [id number] [place] [address] 84780- 7025 14 Dec, 2015 [facility] [place] [id number] [place] [address] 14830- 4557 Dec, [facility] [place] [address] [place] [id number] [place] [address] 95109- 2860 Nov, [facility] [id number] [place] [address] 70522 -6472 Nov, Cough R05 ; Other viral agents as the cause of diseases classified elsewhere B97.89 and Acute upper respiratory infection, unspecified J06.9 [facility] [place] [address] [address]- 2390 Nov, [facility] [place] [address] [place] [id number] [place] [address] 84283- 3878 Nov, [facility] [place] [address] [address]- 3487 Nov, [facility] [place] [address] [address]- 7694 Nov, [facility] [place] [address] [address]- 5174 Nov, [facility] [place] [address] [place] [id number] [place] [address] 61425- 0217 Oct, [facility] [place] [id number] [place] [address] 08674- 0855 Oct, [facility] [place] [address] [place] [id number] [address]- 6112 Oct, [facility] [place] [id number] [place] [address] 23370- 2406 Oct, Chronic pain syndrome G89.4 [facility] [place] [address] [address]- 6860 Sep, Generalized anxiety disorder F41.1 and Major depressive disorder, recurrent episode, moderate F33.1 [facility] [place] [address], [place] [address]- 8741 Sep, [facility] [place] [address] [address]- 1469 Sep, [facility] [place] [address] [address]- 2149 14 Sep, 2015 Generalized anxiety disorder F41.1 [facility] [place] [address] [address]- 0560 13 Sep, 2015 Cramp of both lower extremities R25.2 and Cervicalgia M54.2 [facility] [place] [address], [place] [address]- 4400 06 Sep, 2015 Generalized anxiety disorder F41.1 [facility] [place] [address] [place] [id number] [address]- 8440 Sep, [facility] [address] [place] [id number] [place] [address] 35939 -8015 August, Rash R21 ; Itching L29.9 and Allergic response, subsequent encounter T78.40XD [facility] [place] [address] [place] [id number] [place] [address] 75754- 9084 August, Primary insomnia F51.01 [facility] [address] [place] [id number] [place] [address] 28452 -0299 August, Rash R21 ; Itching L29.9 and Allergic response, initial encounter T78.40XA [place] [address] [place] [id number] [place] [address] 58066- 8003 August, [place] [address] [place] [id number] [place] [address] 00738- 3083 August, Cramp of both lower extremities R25.2 [place] [address] [place] [id number] [place] [address] 98411- 7368 August, Back pain M54.9 [place] [address] [place] [id number] [place] [address] 62792- 7762 August, [place] [address] [place] [id number] [place] [address] 28061- 6723 August, [facility] [address] [place] [id number] [place] [address] 21492 -8769 August, Cramp of both lower extremities R25.2 [place] [address] [place] [id number] [place] [address] 37651- 4449 August, [place] [address] [place] [id number] [place] [address] 04642- 8455 August, Syncope R55 ; Paroxysmal atrial fibrillation I48.0 ; Dementia without behavioral disturbance, unspecified dementia type F03.90 and Chronic pain syndrome G89.4 [place] [address] [place] [id number] [place] [address] 47946- 4067 August, Type 2 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 and Syncope R55 [facility] [place] [address] [place] [id number] [place] [address] 99397- 8474 Jul, [facility] [place] [address] [place] [id number] [place] [address] 25609- 6881 Jul, [facility] [place] [address] [place] [id number] [place] [address] 74466- 2368 Jul, [facility] [place] [address] [place] [id number] [place] [address] 68765- 3565 Jul, [facility] [place] [address] [place] [id number] [place] [address] 75120- 5088 Jul, [facility] [place] [address] [place] [id number] [place] [address] 10530- 6348 Jul, UTI (urinary tract infection) N39.0 [facility] [place] [address] [place] [id number] [place] [address] 83569- 6898 Jul, [facility] [place] [address] [place] [id number] [place] [address] 46424- 8322 Jul, Major depressive disorder, recurrent episode, moderate F33.1 and Generalized anxiety disorder F41.1 [facility] [place] [address] [place] [id number] [place] [address] 68356- 6816 Jul, Generalized anxiety disorder F41.1 [facility] [place] [id number] [place] [address] 74510- 5063 Jul, Diarrhea R19.7 [facility] [place] [id number] [place] [address] 86346- 8356 Jul, [facility] [place] [id number] [place] [address] 16105- 8557 Jun, [facility] [place] [id number] [place] [address] 10560- 6803 Jun, Eczema L30.9 [facility] [place] [address] [address]- 9831 Jun, [facility] [place] [id number] [address]- 3846 Jun, COPD (chronic obstructive pulmonary disease) J44.9 [facility] [place] [address] [address]- 8926 Jun, [facility] [place] [id number] [place] [address] 97827- 9974 Jun, Major depressive disorder, recurrent episode, moderate F33.1 and Generalized anxiety disorder F41.1 [facility] [place] [address], [place] [address]- 3306 May, [facility] [place] [address], [place] [address]- 0653 May, UTI (urinary tract infection) N39.0 [facility] [place] [address], [place] [address]- 3225 May, [facility] [place] [id number], [place] [address]- 5312 May, [facility] [place] [id number], [place] [address]- 5791 May, [facility] [place] [address] [address]- 7016 May, [facility] [place] [id number], [place] [address]- 7932 Apr, Major depressive disorder, recurrent episode, moderate F33.1 and Generalized anxiety disorder F41.1 [facility] [place] [address], [place] [address]- 6068 Apr, COPD (chronic obstructive pulmonary disease) J44.9 [facility] [place] [address], [place] [address]- 9486 Apr, [facility] [place] [address] [place] [id number] [address]- 5116 Apr, Atrial flutter I48.92 [facility] [place] [address] [place] [id number] [place] [address] 98694- 3550 Apr, [facility] [place] [address] [place] [id number] [place] [address] 09169- 1320 Apr, [facility] [place] [address] [place] [place] [id number] [place] [address] 71182- 5843 Mar, [facility] [place] [address] [place] [place] [id number] [place] [address] 21312- 5035 Mar, [facility] [place] [address] [place] [place] [id number] [place] [address] 80971- 9773 Mar, [facility] [place] [address] [place] [place] [id number] [place] [address] 21968- 3022 Mar, Hyperlipidemia E78.5 ; Type 2 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 ; Major depressive disorder, recurrent episode, moderate F33.1 and Chronic pain syndrome G89.4 [facility] [place] [address] [place] [place] [id number] [place] [address] 75629- 5653 Mar, [facility] [place] [address] [place] [place] [id number] [place] [address] 55355- 2918 Mar, [facility] [place] [address] [place] [place] [id number] [place] [address] 25064- 6158 Mar, [facility] [place] [address] [place] [place] [id number] [place] [address] 10695- 1681 Mar, [facility] [place] [id number] [place] [address] 73023- 2481 Feb, COPD (chronic obstructive pulmonary disease) J44.9 and Back pain M54.9 [facility] [place] [address], [place] [address]- 8698 Feb, [facility] [place] [address] [place] [place] [id number] [place] [address] 95286- 7069 Feb, [facility] [place] [address], [place] [address]- 2499 Feb, [facility] [place] [address] [place] [place] [id number] [place] [address] 31979- 8225 Feb, [facility] [place] [address], [place] [address]- 3604 Feb, [facility] [place] [address] [place] [place] [id number] [place] [address] 03317- 7392 Feb, [facility] [place] [address] [place] [place] [id number] [place] [address] 67206- 9687 Feb, [facility] [place] [address] [place] [id number] [place] [address] 61170- 3461 Feb, [facility] [place] [address] [place] [place] [id number] [place] [address] 72220- 6267 Feb, Diabetes E11.9 ; Back pain M54.9 and COPD (chronic obstructive pulmonary disease) J44.9 [facility] [place] [id number] [place] [address] 10168- 8571 Jan, [facility] [place] [address] [id number] [place] [address] 03960- 1648 Jan, Major depression, recurrent F33.9 and Generalized anxiety disorder F41.1 [facility] [place] [id number] [place] [address] 21914- 3255 Jan, Chronic pain G89.29 [facility] [place] [address], [place] [address]- 8482 Jan, [facility] [place] [id number] [place] [address] 61242- 2796 Jan, [facility] [place] [id number] [place] [address] 44142- 9829 Jan, [facility] [place] [id number], [place] [address]- 1786 Jan, [facility] [place] [id number] [place] [address] 51141- 2067 Jan, Nicotine dependence F17.200 [facility] [place] [address] 58526- 3609 Jan, Nicotine dependence F17.200 and Back pain M54.9 [facility] [place] [id number] [place] [address] 06085- 1834 Jan, [facility] [place] [id number] [place] [address] 93625- 3722 28 Dec, 2014 [facility] [place] [id number] [place] [address] 45682- 6578 25 Dec, 2014 Anxiety, generalized 300.02 and Major depression, recurrent 296.30 [facility] [place] [id number] [place] [address] 08433- 3582 24 Dec, 2014 [facility] [place] [id number] [place] [address] 52147- 9427 21 Dec, 2014 [facility] [place] [id number] [place] [address] 75274- 2877 17 Dec, 2014 [facility] [id number] [place] [address] 71983- 5862 15 Dec, 2014 [facility] [place] [id number] [place] [address] 64052- 5068 14 Dec, 2014 [facility] [place] [id number] [place] [address] 85365- 9886 11 Dec, 2014 [facility] [id number] [place] [address] 71552- 3512 10 Dec, 2014 [facility] [place] [id number] [place] [address] 98431- 1890 08 Dec, 2014 Skin tear 879.8 [facility] [place] [id number] [place] [address] 69851- 2346 08 Dec, 2014 Routine gynecological examination V72.31 ; Breast cancer screening V76.10 and Family history of breast cancer in first degree relative V16.3 [facility] [address] [address]- 2799 Dec, [facility] [id number] [place] [address] 15075- 3272 Dec, [facility] [address] [address]- 5316 Nov, [facility] [id number] [place] [address] 22932- 2049 Nov, [facility] [place] [id number] [place] [address]- [address]39 Nov, Poor balance 781.99 and Vascular dementia, uncomplicated 290.40 [facility] [place] [id number] [place] [address]- 6704 Nov, [facility] [place] [id number] [place] [address] 45952- 6349 Nov, Major depression, recurrent 296.30 and Anxiety, generalized 300.02 [facility] [place] [id number] [place] [address]19- [address]24 Nov, [facility] [place] [id number] [place] [address] 6[address]34- 3378 Nov, [facility] [place] [id number] [address] Nov, [facility] [place] [id number] [place] [address] 53287- 4392 Nov, [facility] [place] [id number] [address] Nov, Vascular dementia, uncomplicated 290.40 and Lumbago 724.2 [facility] [place] [id number] [address] Nov, [facility] [place] [id number] [place] [address] 09308- 6080 Nov, [facility] [place] [id number] [address] Nov, [facility] [place] [id number] [address] Oct, [facility] [place] [id number] [address] Oct, [facility] [place] [id number] [place] [address] 22107- 3011 Oct, [facility] [place] [id number] [address] Oct, COPD (chronic obstructive pulmonary disease) 496 and Hyperlipidemia 272.4 [facility] [place] [id number], [place] [address] Oct, Major depression, recurrent 296.30 and Anxiety, generalized 300.02 [facility] [place] [id number], [place] [address] Oct, [facility] [place] [id number], [place] [address] Oct, [facility] [place] [id number], [place] [address] Oct, [facility] [place] [id number], [place] [address] Sep, Lumbago 724.2 and Anxiety state, unspecified 300.00 [facility] [place] [id number], [place] [address] Sep, [facility] [place] [id number], [place] [address] Sep, [facility] [place] [id number] [address] August, [facility] [place] [id number] [address] August, Major depression, recurrent 296.30 ; Anxiety, generalized 300.02 and No condition on [place] II V71.09 [facility] [id number] [address] August, [facility] [address] [facility] [id number] [place] [address] August, [facility] [address] [id number] [address] Jul, [facility] [address] [facility] [id number] [place] [address] Jul, [facility] [id number] [address] Jul, [facility] [address] [id number] [address] Jun, [facility] [id number] [address] Jun, [facility] [address] [id number] [address] Jun, [facility] [id number] [address] Jun, [facility] [address] [id number] [address] Jun, [facility] [id number] [address]- 4199 Jun, [facility] [address] [id number] [address] 23 Jun, 2014 [facility] [id number] [address] 17 Jun, 2014 [facility] [address] [facility] [id number] [address] Jun, [facility] [id number] [address] Jun, [facility] [place] [facility] [address] [id number] [place] [address]- 8227 10 Jun, 2014 [facility] [place] [facility] [address] [id number] [place] [address]- 2025 10 Jun, 2014 [facility] [place] [facility] [address] [id number] [place] [address]- 7844 07 Jun, 2014 [facility] [place] [facility] [address] [id number] [place] [address]- 7399 07 Jun, 2014 [facility] [place] [facility] [address] [id number] [place] [address]- 9231 Jun, [facility] [place] [facility] [address] [id number] [place] [address]- 6563 Jun, 2014 [facility] [place] [facility] [address] [id number] [place] [address]- 6894 May, [facility] [place] [facility] [address] [id number] [place] [address]- 6246 May, 2014 [facility] [place] [facility] [address] [id number] [place] [address]- 9575 May, [facility] [place] [facility] [address] [facility] [id number] [place] [address]- 3891 May, 2014 [facility] [place] [facility] [address] [facility] [id number] [place] [address]- 0284 May, 2014 [facility] [place] [facility] [address] [id number] [place] [address]- 9176 May, 2014 [facility] [place] [facility] [address] [id number] [place] [address]- 2541 May, 2014 [facility] [place] [facility] [address] [id number] [place] [address]- 8697 12 May, 2014 [facility] [place] [facility] [address] [facility] [id number] [place] [address]- 0922 May, 2014 [facility] [place] [facility] [address] [facility] [id number] [place] [address]- 2385 May, 2014 [facility] [place] [facility] [address] [id number] [place] [address]- 0316 May, 2014 [facility] [place] [facility] [address] [id number] [place] [address]- 0686 May, 2014 [facility] [place] [facility] [address] [id number] [place] [address]- 8846 May, 2014 [facility] [place] [facility] [address] [id number] [place] [address]- 6280 May, [facility] [place] [facility] [address] [id number] [place] [address]- 0062 Apr, [facility] [place] [facility] [address] [id number] [place] [address]- 3906 Apr, [facility] [place] [facility] [address] [id number] [place] [address]- 5359 Apr, [facility] [place] [facility] [address] [id number] [place] [address]- 7735 Apr, [facility] [place] [facility] [address] [id number] [place] [address]- 9971 Apr, [facility] [place] [facility] [address] [id number] [place] [address]- 4906 Apr, [facility] [place] [facility] [address] [id number] [place] [address]- 0015 Apr, [facility] [place] [facility] [address] [id number] [place] [address]- 6670 Apr, [facility] [place] [facility] [address] [id number] [place] [address]- 7863 Apr, [facility] [place] [facility] [address] [id number] [place] [address]- 6046 Apr, [facility] [place] [facility] [address] [id number] [place] [address]- 7013 Apr, [facility] [place] [facility] [address] [id number] [place] [address]- 0003 Apr, [facility] [place] [facility] [address] [id number] [place] [address]- 1708 Mar, [facility] [place] [facility] [address] [id number] [place] [address]- 0677 31 Mar, 2014 [facility] [place] [facility] [address] [id number] [place] [address]- 3317 30 Mar, 2014 [facility] [place] [facility] [address] [id number] [place] [address]- 3933 30 Mar, 2014 [facility] [place] [facility] [address] [id number] [place] [address]- 1771 Mar, [facility] [place] [facility] [address] [id number] [place] [address]- 9278 Mar, [facility] [place] [facility] [address] [id number] [place] [address]- 2136 Mar, [facility] [place] [facility] [address] [id number] [place] [address]- 2467 19 Mar, 2014 [facility] [place] [facility] [address] [id number] [place] [address]- 9731 15 Mar, 2014 [facility] [place] [facility] [address] [id number] [place] [address]- 0127 15 Mar, 2014 [facility] [place] [facility] [address] [id number] [place] [address]- 6216 15 Mar, 2014 [facility] [place] [facility] [address] [id number] [place] [address]- 8813 15 Mar, 2014 [facility] [place] [facility] [address] [id number] [place] [address]- 1590 15 Mar, 2014 [facility] [place] [facility] [address] [id number] [place] [address]- 2693 15 Mar, 2014 [facility] [place] [facility] [address] [id number] [place] [address]- 9493 Mar, [facility] [place] [facility] [address] [id number] [place] [address]- 4529 Mar, [facility] [place] [facility] [address] [id number] [place] [address]- 5075 Mar, [facility] [place] [facility] [address] [id number] [place] [address]- 8098 Mar, [facility] [place] [facility] [address] [id number] [place] [address]- 9988 Mar, [facility] [place] [facility] [address] [id number] [place] [address]- 0544 Mar, [facility] [place] [facility] [address] [id number] [place] [address]- 9250 Feb, [facility] [place] [facility] [address] [id number] [place] [address]- 2996 Feb, [facility] [place] [facility] [address] [id number] [place] [address]- 7443 Feb, [facility] [place] [facility] [address] [id number] [place] [address]- 3373 Feb, [facility] [place] [facility] [address] [id number] [place] [address]- 7342 Feb, [facility] [place] [facility] [address] [id number] [place] [address]- 2778 Feb, [facility] [place] [facility] [address] [id number] [address]- 9056 Feb, [facility] [place] [facility] [address] [id number] [place] [address]- 8959 Feb, [facility] [place] [facility] [address] [id number] [place] [address]- 1214 Feb, [facility] [place] [facility] [address] [id number] [address]- 7465 Feb, [facility] [place] [facility] [address] [id number] [place] [address]- 5749 Feb, [facility] [place] [facility] [address] [id number] [place] 6836 Feb, [facility] [place] [facility] [address] [id number] [place] 4638 Feb, [facility] [place] [facility] [address] [id number] [place] [address]- 7989 Feb, [facility] [place] [facility] [address] [id number] [place] [address]- 0984 Feb, [facility] [place] [facility] [address] [id number] [place] [address]- 5250 Feb, [facility] [place] [facility] [address] [id number] [place] [address]- 8573 Feb, [facility] [place] [facility] [address] [id number] [place] [address]- 0532 Jan, [facility] [place] [facility] [address] [id number] [place] [address]- 3448 Jan, [facility] [place] [facility] [address] [id number] [place] [address]- 2944 Jan, [facility] [place] [facility] [address] [id number] [place] [address]- 1293 Jan, [facility] [place] [facility] [address] [id number] [place] [address]- 6055 Jan, [facility] [place] [facility] [address] [id number] [place] [address]- 5724 Jan, [facility] [place] [facility] [address] [id number] [place] [address]- 3859 16 Jan, 2014 [facility] [place] [facility] [address] [id number] [place] 3873 16 Jan, 2014 [facility] [place] [facility] [address] [id number] [place] [address]- 3901 Jan, [facility] [place] [facility] [address] [id number] [place] [address]- 8608 Jan, [facility] [place] [facility] [address] [id number] [place] [address]- 7390 Jan, [facility] [place] [facility] [address] [id number] [place] [address]- 9040 Dec, [facility] [place] [facility] [address] [id number] [place] [address]- 1984 Dec, [facility] [place] [facility] [address] [id number] [place] [address]- 8715 Nov, [facility] [place] [facility] [address] [id number] [place] [address]- 9385 Nov, [facility] [place] [facility] [address] [id number] [place] [address]- 0576 Nov, [facility] [place] [facility] [address] [id number] [place] [address]- 9262 Nov, [facility] [place] [facility] [address] [id number] [place] [address]- 8897 Nov, [facility] [place] [facility] [address] [id number] [place] [address]- 5314 Nov, [facility] [place] [facility] [address] [id number] [address]- 6402 Nov, [facility] [place] [facility] [address] [id number], [place] [address]- 2773 Oct, [facility] [place] [facility] [address] [id number] [place] [address]- 8548 Oct, [facility] [place] [facility] [address] [id number] [address]- 5504 Oct, [facility] [place] [facility] [address] [id number] [place] 4280 Oct, [facility] [place] [facility] [address] [id number] [place] [address]- 8052 30 Sep, 2013 [facility] [place] [facility] [address] [id number] [place] [address]- 2696 Sep, [facility] [place] [facility] [address] [id number] [place] [address]- 8969 Sep, [facility] [place] [facility] [address] [id number] [place] [address]- 1258 Sep, [facility] [place] [facility] [address] [id number] [place] [address]- 7231 Sep, [facility] [place] [facility] [address] [id number] [place] [address]- 6371 Sep, [facility] [place] [facility] [address] [id number] [place] [address]- 5713 Sep, [facility] [place] [facility] [address] [id number] [place] [address]- 5315 Sep, [facility] [place] [facility] [address] [id number] [place] [address]- 3315 Sep, [facility] [place] [facility] [address] [id number] [place] [address]- 0560 Sep, [facility] [place] [facility] [address] [id number] [place] [address]- 6416 Sep, [facility] [place] [facility] [address] [id number] [place] [address]- 4311 Sep, [facility] [place] [facility] [address] [id number] [place] [address]- 4186 Sep, [facility] [place] [facility] [address] [id number] [place] [address]- 8073 Sep, [facility] [place] [facility] [address] [id number] [place] [address]- 7064 August, [facility] [place] [facility] [address] [id number] [place] [address]- 7547 August, [facility] [place] [facility] [address] [id number] [place] [address]- 8919 August, [facility] [address] [id number] [place] [address]- 8624 August, [facility] [address] [id number] [place] [address]- 7335 August, [facility] [address] [id number] [place] [address]- 4802 August, [facility] [address] [id number] [place] [address]- 6269 August, [facility] [address] [id number] [place] [address]- 7788 August, [facility] [address] [id number] [place] [address]- 5997 August, [facility] [address] [id number] [place] [address]- 4053 August, [facility] [address] [id number] [place] [address]- 6241 August, [facility] [address] [id number] [place] [address]- 5579 August, [facility] [address] [id number] [place] [address]- 2260 August, [facility] [address] [id number] [place] [address]- 0809 August, [facility] [place] [facility] [address] [id number] [place] [address]- 1541 August, [facility] [place] [facility] [address] [id number] [place] [address]- 3057 August, [facility] [place] [facility] [address] [id number] [place] [address]- 3776 August, [facility] [place] [facility] [address] [id number] [place] [address]- 9333 August, [facility] [place] [facility] [address] [id number] [place] 8835 August, [facility] [place] [facility] [address] [id number] [place] [address]- 4706 Jul, [facility] [place] [facility] [address] [id number] [place] [address]- 9315 Jul, [facility] [place] [facility] [address] [id number] [place] [address]- 7940 Jul, [facility] [place] [facility] [address] [id number] [place] [address]- 8729 Jul, [facility] [place] [facility] [address] [id number] [place] [address]- 9938 Jun, [facility] [place] [facility] [address] [id number] [place] [address]- 0790 Jun, [facility] [place] [facility] [address] [id number] [place] [address]- 9114 Jun, [facility] [place] [facility] [address] [id number] [place] [address]- 9747 Jun, [facility] [place] [facility] [address] [id number] [place] [address]- 9773 Jun, [facility] [place] [facility] [address] [id number] [place] [address]- 7392 Jun, [facility] [place] [facility] [address] [id number] [place] [address]- 3085 Jun, [facility] [place] [facility] [address] [id number] [place] [address]- 5359 Jun, [facility] [place] [facility] [address] [id number] [place] [address]- 9066 Jun, [facility] [place] [facility] [address] [id number] [place] [address]- 8141 Jun, [facility] [place] [facility] [address] [id number] [place] [address]- 3995 May, [facility] [place] [facility] [address] [id number] [place] [address]- 0536 May, [facility] [place] [facility] [address] [id number] [place] [address]- 3916 May, [facility] [place] [facility] [address] [id number] [place] [address]- 2175 May, [facility] [place] [facility] [address] [id number] [place] [address]- 2543 May, [facility] [place] [facility] [address] [id number] [place] [address]- 7906 May, [facility] [place] [facility] [address] [facility] [id number] [place] [address]- 1434 May, [facility] [place] [facility] [address] [facility] [id number] [place] [address]- 1890 May, [facility] [place] [facility] [address] [id number] [place] [address]- 0807 May, [facility] [place] [facility] [address] [facility] [id number] [place] [address]- 4867 May, [facility] [place] [facility] [address] [facility] [id number] [place] [address]- 4322 18 May, 2013 [facility] [place] [facility] [address] [facility] [id number] [place] [address]- 1703 17 May, 2013 [facility] [place] [facility] [address] [facility] [id number] [place] [address]- 2546 May, [facility] [place] [facility] [address] [id number] [place] [address]- 0621 May, [facility] [place] [facility] [address] [facility] [id number] [place] [address]- 3236 10 May, 2013 [facility] [place] [facility] [address] [facility] [id number] [place] [address]- 0631 07 May, 2013 [facility] [address] [id number] [place] [address]- 2523 07 May, 2013 [facility] [address] [id number] [place] [address]- 1096 17 Apr, 2013 [facility] [address] [id number] [place] [address]- 7802 Apr, [facility] [address] [id number] [place] [address]- 7591 Apr, [facility] [address] [id number] [place] [address]- 7192 Apr, [facility] [address] [id number] [place] [address]- 4547 Apr, [facility] [address] [id number] [place] [address]- 7269 Apr, [facility] [address] [id number] [place] [address]- 8946 Apr, [facility] [address] [id number] [place] [address]- 9611 Mar, [facility] [address] [id number] [place] [address]- 3158 Mar, [facility] [address] [id number] [place] [address]- 9266 Mar, [facility] [address] [id number] [place] [address]- 3294 Mar, [facility] [address] [id number] [place] [address]- 6026 Mar, [facility] [address] [id number] [place] [address]- 2306 Mar, [facility] [address] [id number] [place] [address]- 1443 Mar, [facility] [place] [facility] [address] [id number] [place] [address]- 5240 Mar, [facility] [place] [facility] [address] [id number] [place] [address]- 2099 Mar, [facility] [place] [facility] [address] [id number] [place] [address]- 3061 Mar, [facility] [place] [facility] [address] [id number] [place] [address]- 1278 Mar, [facility] [address] [id number] [place] [address]- 4822 Feb, [facility] [place] [facility] [address] [id number] [place] [address]- 5127 Feb, [facility] [address] [id number] [place] [address]- 3769 Feb, [facility] [address] [id number] [place] [address] 20 Feb, 2013 [facility] [place] [facility] [address] [id number] [place] [address] Feb, [facility] [place] [facility] [address] [id number] [place] [address] 19 Feb, 2013 [facility] [place] [facility] [address] [id number] [place] [address] 15 Feb, 2013 [facility] [place] [facility] [address] [id number], [place] [address] 14 Feb, 2013 [facility] [place] [facility] [address] [id number] [place] [address] 14 Feb, 2013 [facility] [place] [facility] [address] [id number], [place] [address] 13 Feb, 2013 [facility] [place] [facility] [address] [id number], [place] [address] 13 Feb, 2013 [facility] [place] [facility] [address] [id number], [place] [address] Feb, [facility] [place] [facility] [address] [id number] [place] [address] Feb, [facility] [place] [facility] [address] [id number] [place] [address] Feb, [facility] [place] [facility] [address] [id number] [place] [address] Feb, [facility] [place] [facility] [address] [id number] [place] [address] Feb, [facility] [place] [facility] [address] [id number] [place] [address] Jan, [facility] [place] [facility] [address] [id number] [place] [address] Jan, [facility] [place] [facility] [address] [id number] [place] [address] Jan, [facility] [place] [facility] [address] [id number] [place] [address] Jan, [facility] [place] [facility] [address] [id number] [place] [address] 23[address] Jan, [facility] [place] [facility] [address] [id number] [place] [address] Jan, [facility] [place] [facility] [address] [id number], [place] [address] Jan, [facility] [place] [facility] [address] [id number], [place] [address] Jan, [facility] [place] [facility] [address] [id number] [place] [address] 10 Jan, 2013 [facility] [place] [facility] [address] [id number] [place] [address] 3938 27 Dec, 2012 [facility] [place] [facility] [address] [id number] [place] [address] 20 Dec, 2012 [facility] [place] [facility] [address] [id number] [place] [address]35 19 Dec, 2012 [facility] [place] [facility] [address] [id number] [place] [address]- [address]286 10 Dec, 2012 [facility] [place] [facility] [address] [id number] [place] [address] 9896 04 Dec, 2012 [facility] [place] [facility] [address] [id number] [place] [address] 03 Dec, 2012 [facility] [place] [facility] [address] [id number] [place] [address] 29[address] Nov, [facility] [place] [facility] [address] [id number] [place] [address] Nov, [facility] [place] [facility] [address] [id number] [place] [address] Nov, [facility] [place] [facility] [address] [id number] [place] [address] Nov, [facility] [place] [facility] [address] [id number] [place] [address] Nov, [facility] [place] [facility] [address] [id number] [place] [address] 37[address] Nov, [facility] [place] [facility] [address] [id number] [place] [address] 1243 Nov, [facility] [place] [facility] [address] [id number] [place] [address] Nov, [facility] [place] [facility] [address] [id number] [place] [address] 14 Nov, 2012 [facility] [place] [facility] [address] [id number] [place] [address]- 1487 Nov, [facility] [place] [facility] [address] [id number] [place] [address] Oct, [facility] [place] [facility] [address] [id number] [place] [address] 1640 Oct, [facility] [place] [facility] [address] [id number] [place] [address] 9157 Oct, [facility] [place] [facility] [address] [id number] [place] [address]- 7329 Oct, [facility] [place] [facility] [address] [id number] [place] [address]- 1560 Oct, [facility] [place] [facility] [address] [id number] [place] [address] 75[address] Oct, [facility] [place] [facility] [address] [id number] [place] [address]- 6725 Oct, [facility] [place] [facility] [address] [id number] [place] [address] Oct, [facility] [place] [facility] [address] [id number] [place] [address]- 6[address] Sep, [facility] [place] [facility] [address] [id number] [place] [address]- 6068 Sep, [facility] [place] [facility] [address] [id number] [place] [address]- 64[address] Sep, [facility] [place] [facility] [address] [id number] [place] [address]- 46[address] Sep, [facility] [place] [facility] [address] [id number] [place] [address]- 9704 Sep, [facility] [place] [facility] [address] [id number], [place] [address] Sep, [facility] [place] [facility] [address] [id number] [place] [address]- 8399 Sep, [facility] [place] [facility] [address] [id number] [place] [address]- 7007 Sep, [facility] [place] [facility] [address] [id number] [place] [address]- [address]796 August, [facility] [place] [facility] [address] [id number] [place] [address]134 August, [facility] [address] [id number] [place] [address] August, [facility] [address] [id number] [place] [address]- 7905 August, [facility] [address] [id number] [place] [address]- [address]199 August, [facility] [address] [id number] [place] [address]- 1581 Jul, [facility] [address] [id number] [place] [address]- 0626 Jul, [facility] [address] [id number] [place] [address]- 2429 Jul, [facility] [address] [id number] [place] [address]- 1557 Jul, [facility] [address] [id number] [place] [address]- 4568 Jul, [facility] [address] [id number] [place] [address]- 3837 18 Jun, 2012 [facility] [address] [id number] [place] [address]- 2210 18 Jun, 2012 [facility] [address] [id number] [place] [address]- 8540 15 Jun, 2012 [facility] [address] [id number] [place] [address]- 5622 14 Jun, 2012 [facility] [place] [facility] [address] [id number] [place] [address]- 8615 12 Jun, 2012 [facility] [place] [facility] [address] [id number] [place] [address] 08 Jun, 2012 [facility] [address] [id number] [place] [address] 08 Jun, 2012 [facility] [address] [id number] [place] [address] Jun, [facility] [address] [id number] [place] [address] Jun, [facility] [address] [id number] [place] [address] 6[address] May, [facility] [address] [id number] [place] [address] 8046 May, [facility] [address] [id number] [place] [address] 3547 May, [facility] [address] [id number] [place] [address] 2096 May, [facility] [address] [id number] [place] [address]- 5785 Apr, [facility] [address] [id number] [place] [address]- 2543 Apr, [facility] [address] [id number] [place] [address]- 8673 Apr, [facility] [address] [id number] [place] [address]- 5810 Apr, [facility] [address] [id number] [place] [address]- 7009 Apr, [facility] [address] [id number] [place] [address]- 5254 Apr, [facility] [address] [id number] [place] [address]- 2086 Apr, [facility] [address] [id number] [place] [address]- 9[address] Mar, [facility] [address] [place] [id number] Mar, [facility] [address] [id number] [place] [address]- 0335 Mar, [facility] [place] [facility] [address] [id number] [place] [address]- 9241 Mar, [facility] [place] [facility] [address] [id number] [place] [address]- 3566 Mar, [facility] [place] [facility] [address] [id number] [place] [address]- 2022 Mar, [facility] [place] [facility] [address] [id number] [place] [address]- 6327 Mar, [facility] [place] [facility] [address] [id number] [place] [address]- 3697 Mar, [facility] [place] [facility] [address] [id number] [place] [address]- 2311 Mar, [facility] [place] [facility] [address] [id number] [place] [address]- 1885 Mar, [facility] [place] [facility] [address] [id number] [place] [address]- 6765 Mar, [facility] [place] [facility] [address] [id number] [place] [address]- 0610 Mar, [facility] [place] [facility] [address] [id number] [place] [address]- 9283 Mar, [facility] [place] [facility] [address] [id number] [place] [address]- 2278 Mar, [facility] [place] [facility] [address] [id number], [place] [address] Mar, [facility] [place] [facility] [address] [id number] [place] [address]- 0893 Mar, [facility] [place] [facility] [address] [id number] [place] [address]- 8840 Mar, [facility] [place] [facility] [address] [id number] [place] [address]- 3554 Feb, [facility] [place] [facility] [address] [id number] [place] [address]- 2622 Feb, [facility] [place] [facility] [address] [id number] [place] [address]- 0553 Feb, [facility] [place] [facility] [address] [id number] [place] [address]- 5356 Feb, [facility] [place] [facility] [address] [id number] [place] [address]- 4326 Feb, [facility] [place] [facility] [address] [id number] [place] [address]- 3913 Feb, [facility] [place] [facility] [address] [id number] [place] [address]- 9665 Feb, [facility] [place] [facility] [address] [id number] [place] [address]- 5591 Feb, [facility] [place] [facility] [address] [id number] [place] [address]- 9215 Feb, [facility] [place] [facility] [address] [id number] [place] [address]- 8135 Feb, [facility] [place] [facility] [address] [id number] [place] [address]- 3113 Feb, [facility] [place] [facility] [address] [id number] [place] [address]- 4537 Feb, [facility] [place] [facility] [address] [id number] [place] [address]- 2413 Feb, [facility] [place] [facility] [address] [id number], [place] [address] 72[address] Feb, [facility] [place] [facility] [address] [id number] [place] [address]- 9034 Feb, [facility] [place] [facility] [address] [id number] [place] [address]- 2982 Feb, [facility] [place] [facility] [address] [id number], [place] [address]- 2221 Jan, [facility] [place] [facility] [address] [id number] [place] [address]- 7765 Jan, [facility] [place] [facility] [address] [id number] [place] [address]- 4135 Jan, [facility] [place] [facility] [address] [id number] [place] [address]- 7981 Jan, [facility] [place] [facility] [address] [id number] [place] [address]- 7805 Jan, [facility] [place] [facility] [address] [id number] [place] [address]- 8743 Jan, [facility] [place] [facility] [address] [id number] [place] [address]- 1338 Jan, [facility] [place] [facility] [address] [id number] [place] [address]- 2344 Jan, [facility] [place] [facility] [address] [id number] [place] [address]- 8098 Jan, [facility] [place] [facility] [address] [id number] [place] [address]- 4508 Jan, [facility] [place] [facility] [address] [id number] [place] [address]- 1438 Jan, [facility] [place] [facility] [address] [id number] [place] [address]- 2440 Jan, [facility] [place] [facility] [address] [id number], [place] [address] 5910 Jan, [facility] [place] [facility] [address] [id number] [place] [address]- 9383 Jan, [facility] [place] [facility] [address] [id number] [place] [address]- 2218 Jan, [facility] [place] [facility] [address] [id number] [place] [address]- 5217 Jan, [facility] [place] [facility] [address] [id number][place] [address]- [address]64 04 Jan, 2012 [facility] [place] [facility] [address] [id number] [place] [address]- 4996 21 Dec, 2011 [facility] [place] [facility] [address] [id number] [place] [address]- 2506 20 Dec, 2011 [facility] [place] [facility] [address] [id number] [place] [address] 2546 18 Dec, 2011 [facility] [place] [facility] [address] [id number] [place] [address] 2546 18 Dec, 2011 [facility] [place] [facility] [address] [id number] [place] [address] 2546 10 Dec, 2011 [facility] [place] [facility] [address] [id number] [place] [address]- 3056 10 Dec, 2011 [facility] [place] [facility] [address] [id number] [place] [address]- 0407 10 Dec, 2011 [facility] [place] [facility] [address] [id number] [place] [address]- 3834 07 Dec, 2011 [facility] [place] [facility] [address] [id number] [place] [address]- 3616 30 Nov, 2011 [facility] [place] [facility] [address] [id number] [place] [address]- 3719 Nov, [facility] [place] [facility] [address] [id number] [place] [address]- 4540 Nov, [facility] [place] [facility] [address] [id number] [place] [address]- 2548 Nov, [facility] [place] [facility] [address] [id number] [place] [address] 2546 Nov, [facility] [place] [facility] [address] [id number] [place] [address]- 3860 Nov, [facility] [place] [facility] [address] [id number] [place] [address]- 2540 30 Oct, 2011 [facility] [place] [facility] [address] [id number] [place] [address]- 1599 30 Oct, 2011 [facility] [address] [id number] [place] [address]- 9642 Oct, [facility] [place] [facility] [address] [id number] [place] [address]- 8166 Oct, [facility] [address] [id number] [place] [address]- 2588 Oct, [facility] [place] [facility] [address] [id number] [place] [address]- 9540 Oct, [facility] [address] [id number] [place] [address]- 2554 Oct, [facility] [place] [facility] [address] [id number] [place] [address]- 9260 Sep, [facility] [place] [facility] [address] [id number] [place] [address]- 9194 Sep, [facility] [place] [facility] [address] [id number] [place] [address]- 2768 Sep, [facility] [place] [facility] [address] [id number] [place] [address]- 7811 Sep, [facility] [address] [id number] [place] [address]- 0245 Sep, [facility] [place] [facility] [address] [id number] [place] [address]- 2542 15 Sep, 2011 [facility] [place] [facility] [address] [id number] [place] [address]- 6895 14 Sep, 2011 [facility] [place] [facility] [address] [id number] [place] [address]- 2820 11 Sep, 2011 [facility] [place] [facility] [address] [id number] [place] [address]- 0123 05 Sep, 2011 [facility] [place] [facility] [address] [id number] [place] [address]- 4564 Sep, [facility] [address] [id number] [place] [address]- 8563 August, [facility] [place] [facility] [address] [id number] [place] [address]- 1486 August, [facility] [place] [facility] [address] [id number] [place] [address]- 9589 August, [facility] [place] [facility] [address] [id number] [place] [address]- 6216 August, [facility] [address] [id number] [place] [address]- 7294 August, [facility] [place] [facility] [address] [id number] [place] [address]- 9561 Jul, [facility] [place] [facility] [address] [id number] [place] [address]- 1190 Jul, [facility] [address] [id number] [place] [address]- 6684 Jul, [facility] [place] [facility] [address] [id number] [place] [address]- 3805 Jul, [facility] [place] [facility] [address] [id number] [place] [address]- 6480 Jul, [facility] [place] [facility] [address] [id number] [place] [address]- 4110 Jul, [facility] [place] [facility] [address] [id number], [place] [address]- 8878 Jul, [facility] [place] [facility] [address] [id number] [place] [address]- 4949 Jun, [facility] [place] [facility] [address] [id number] [place] [address]- 7657 Jun, [facility] [place] [facility] [address] [id number] [place] [address]- 4111 Jun, [facility] [place] [facility] [address] [id number], [place] [address]- 1714 Jun, [facility] [place] [facility] [address] [id number] [place] [address]- 1892 Jun, [facility] [place] [facility] [address] [id number] [place] [address]- 5616 May, [facility] [place] [facility] [address] [id number] [place] [address]- 6196 May, [facility] [place] [facility] [address] [id number] [place] [address]- 2561 May, [facility] [place] [facility] [address] [id number] [place] [address]- 5905 May, [facility] [place] [facility] [address] [id number] [place] [address]- 5286 May, [facility] [place] [facility] [address] [facility] [id number] [place] [address]- 8608 May, [facility] [place] [facility] [address] [id number] [place] [address]- 5351 Apr, [facility] [place] [facility] [address] [facility] [id number] [place] [address]- 8151 Mar, [facility] [place] [facility] [address] [facility] [id number] [place] [address]- 4828 Feb, [facility] [place] [facility] [address] [id number] [place] [address] 2543 Feb, [facility] [place] [facility] [address] [id number] [place] [address]- 2544 Feb, [facility] [place] [facility] [address] [id number] [place] [address]- 9964 Feb, [facility] [place] [facility] [address] [facility] [id number] [place] [address]- 4275 Jan, [facility] [place] [facility] [address] [id number] [place] [address]- 0701 Jan, [facility] [place] [facility] [address] [id number] [place] [address]- 3009 26 Jan, 2011 [facility] [address] [id number] [place] [address]01 24 Jan, 2011 [facility] [address] [id number] [place] [address]- 7668 14 Jan, 2011 [facility] [address] [id number] [place] [address]- 9577 19 Dec, 2010 [facility] [address] [id number] [place] [address]- 3371 Oct, [facility] [address] [id number] [place] [address]- 6214 August, [facility] [address] [id number] [place] [address]- 4824 29 Mar, 2010 [facility] [address] [id number] [place] [address]- 2478 27 Mar, 2010 [facility] [address] [id number] [place] [address]- 9398 16 Mar, 2010 [facility] [address] [id number] [place] [address]- 6520 15 Mar, 2010 [facility] [address] [id number] [place] [address]- 2598 15 Mar, 2010 [facility] [place] [facility] [address] [id number] [place] [address]- 9140 08 Mar, 2010 [facility] [place] [facility] [address] [id number] [place] [address]- 2914 03 Mar, 2010 [facility] [place] [facility] [address] [id number] [place] [address]- 7396 24 Feb, 2010 [facility] [place] [facility] [address] [id number] [place] [address]- 0880 24 Feb, 2010 [facility] [place] [facility] [address] [id number], [place] [address]- 2474 15 Feb, 2010 [facility] [place] [facility] [address] [id number] [place] [address]- 0471 19 Jan, 2010 [facility] [place] [facility] [address] [id number], [place] [address]- 0890 Jan, [facility] [place] [facility] [address] [id number] [place] [address]- 7291 Jan, [facility] [place] [facility] [address] [id number], [place] [address]- 8906 Nov, [facility] [place] [facility] [address] [id number] [place] [address]- 0023 Sep, [facility] [place] [facility] [address] [id number], [place] [address]- 7110 August, [facility] [place] [facility] [address] [id number], [place] [address]- 4554 30 Mar, 2009 [facility] [place] [facility] [address] [id number], [place] [address]- 4193 Mar, [facility] [place] [facility] [address] [id number], [place] [address]- 5776 17 Feb, 2009 [facility] [place] [facility] [address] [id number], [place] [address]- 0376 Feb, [facility] [place] [facility] [address] [id number], [place] [address]- 2432 10 Feb, 2009 [facility] [place] [facility] [address] [id number], [place] [address]- 7008 10 Feb, 2009 [facility] [place] [facility] [address] [id number], [place] [address]- 6021 06 Feb, 2009 [facility] [place] [facility] [address] [id number], [place] [address]- 6885 27 Jan, 2009 [facility] [place] [facility] [address] [id number], [place] [address]- 8345 Jan, [facility] [place] [facility] [address] [id number], [place] [address]- 4007 Jan, [facility] [address] [id number], [place] [address]- 6155 Jan, [facility] [id number], [place] [address]- 2962 Nov, [facility] [id number], [place] [address]- 7545 Sep, [facility] [id number], [place] [address]- 4647 August, [facility] [id number], [place] [address]- 5724 Jul, [facility] [id number], [place] [address]- 7161 May, IMMUNIZATIONS No Known Immunizations SOCIAL HISTORY Never Assessed REASON FOR VISIT CCM note/Rx PLAN OF CARE VITAL SIGNS MEDICATIONS Medication Instructions Dosage Frequency Start Date End Date Duration Status Polyethylene Glycol 3350 - Orally in water or juice Once a day in the pm 17 grams Jul, 30 days Active RESULTS No Results PROCEDURES [...] Knee Surgery 07/16/17 Hospitalization History [facility]- left hand/wrist swelling 10/09/2017
--- OUTSIDE RECORDS SUMMARY | 2018-01-01 12:13 | XMS REPORT ---
Author Author [facility]UN[facility]AP [facility] Address [address] [place] [address] Care Team Providers Care Firmware Engineer Name Role Phone SENAIT DUNLAP Unavailable PROBLEMS Type Condition ICD9-CM Code YUS09-HB Code Onset Dates Condition Status SNOMED Code Problem History of common bile duct surgery Z98.89 Active 366911013 Problem Barretts esophagus K22.70 Active 523929554 Problem 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 Active 02639102 Problem Colon polyp K63.5 Active 21954810 Problem Bilateral low back pain without sciatica M54.5 Active 061673871 Problem Screening breast examination Z12.39 Active 531221778 Problem Postmenopausal Z78.0 Active 05203998 Problem Osteopenia M85.80 Active 566040966 Problem Cigarette nicotine dependence without complication F17.210 Active 54184604 Problem Type 2 diabetes mellitus with diabetic peripheral angiopathy without gangrene E11.51 Active 438904557 Problem Vascular dementia without behavioral disturbance F01.50 Active 21891572870569645 Problem Unspecified atherosclerosis of pic[place]une arteries of extremities, unspecified extremity I70.209 Active 825629456301918 Problem Arthritis M19.90 Active 0926193 Problem Chronic atrial fibrillation I48.2 Active 657081578 Problem Chronic obstructive pulmonary disease with acute lower respiratory infection J44.0 Active 228122030 Problem Other chronic pancreatitis K86.1 Active 019676962 Problem Stress incontinence of urine N39.3 Active 65771939 Problem Controlled type 2 diabetes mellitus without complication, without long -term current use of insulin E11.9 Active 618301050 Problem Unspecified psychosis F29 Active 44755202 Problem Xeroderma Q80.9 Active 91843174 Problem COPD (chronic obstructive pulmonary disease) J44.9 Active 13959791 Problem Dementia without behavioral disturbance, unspecified dementia type F03.90 Active 79368717 Problem Gastroparesis K31.84 Active 950856134 Problem Type 2 diabetes mellitus with diabetic neuropathy, without long-term current use of insulin E11.40 Active 23038169 Problem Osteoporosis M81.0 Active 89678764 Problem Atherosclerosis of pic[place]une artery of both lower extremities with intermittent claudication I70.213 Active 870131519661021 Problem Hyperlipidemia E78.5 Active 44645496 Problem Diabetic polyneuropathy associated with type 2 diabetes mellitus E11.42 Active 04170420 Problem Essential tremor G25.0 Active 25908025 Problem 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 Active 3751974118884 Problem Generalized anxiety disorder F41.1 Active 180529266 Problem Gastroesophageal reflux disease, esophagitis presence not specified K21.9 Active 699366859 Problem Coronary artery disease involving picayune coronary artery of picayune 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 I25.118 Active 5764602211418 Problem Postconcussion syndrome F07.81 Active 26642374 Problem Chronic pain syndrome G89.4 Active 812298590 Problem Migraine without aura and without status migrainosus, not intractable G43.009 Active 731813344 Problem Paroxysmal atrial fibrillation I48.0 Active 806165945 Problem Migraine without aura and with status migrainosus, not intractable G43.001 Active 693505463 Problem Cervicalgia M54.2 Active 3308405227464 Problem Acute exacerbation of chronic obstructive pulmonary disease (COPD) J44.1 Active 324611081 Problem Major depressive disorder, recurrent episode, moderate F33.1 Active 208063368 Problem Crohn''s disease without complication, unspecified gastrointestinal tract location K50.90 Active 25596806 Problem Chronic fatigue R53.82 Active 36568776 Problem Bipolar affective disorder, currently depressed, moderate F31.32 Active 995622717 ALLERGIES No Information ENCOUNTERS Encounter Location Date Diagnosis [address] [address] [facility] [id number] [address] Nov, [facility] [id number] [address] Nov, [place] [id number] [address] Oct, [facility] [id number], [place] [address] Oct, Bipolar affective disorder, currently depressed, moderate F31.32 ; Vascular dementia without behavioral disturbance F01.50 and Generalized anxiety disorder F41.1 [facility] [id number] [place] [address] 86085- 0793 Oct, [facility] [id number] [place] [address] 38872- 1711 Oct, [facility] [id number] [place] [address] 08172- 6362 Oct, Edema of both legs R60.0 [facility] [id number] [place] [address] 68527- 8896 Oct, [facility] [id number] [place] [address] 57215- 2461 Sep, [facility] [id number] [place] [address] 20577- 5912 Sep, [facility] [id number] [place] [address] 16461- 5626 Sep, [facility] [id number] [place] [address] 56495- 8809 Sep, Encounter for well woman exam with routine gynecological exam Z01.419 ; Screening for STDs (sexually transmitted diseases) Z11.3 ; Screening breast examination Z12.31 and Overweight (BMI 25.0-29.9) E66.3 [facility] [address], [place] [address] 6[address] Sep, [facility] [id number] [address] 4607 Sep, [facility] [id number] [place] [address] 93814- 3815 Sep, [facility] [id number] [place] [address] 54052- 4267 August, [facility] [id number], [place] [address] 8399 August, [facility] [id number] [address]01 August, Type 2 diabetes mellitus with diabetic neuropathy, without long-term current use of insulin E11.40 and Sprain of right ankle, unspecified ligament, initial encounter S93.401A [facility] [id number], [place] [address] 0445 August, [facility] [id number] [place] [address] 01557- 5962 August, [facility] [id number] [place] [address] 17481- 4992 August, [facility] [id number] [place] [address] 22037- 1262 August, Gastroesophageal reflux disease, esophagitis presence not specified K21.9 [facility] [id number] [place] [address] 30264- 8666 August, [facility] [id number] [place] [address] 68596- 0160 August, [facility] [id number] [place] [address] 33402- 2194 August, [facility] [id number] [place] [address] 06345- 4831 August, Type 2 diabetes mellitus with diabetic neuropathy, without long-term current use of insulin E11.40 and Elevated liver enzymes R74.8 [facility] [address] [place] [address] 71468- 9260 Jul, [facility] [id number] [place] [address] 93881- 9508 Jul, Cough R05 [facility] [address] [place] [address] 79692- 5156 Jul, [facility] [address], [place] [address] 2848 Jul, [facility] [id number] [place] [address] 80151- 8409 Jul, Bipolar affective disorder, currently depressed, moderate F31.32 ; Vascular dementia without behavioral disturbance F01.50 and Generalized anxiety disorder F41.1 [facility] [id number] [place] [address] 62289- 8218 Jul, [facility] [address] 33766- 1613 Jul, Type 2 diabetes mellitus with diabetic neuropathy, without long-term current use of insulin E11.40 and Elevated liver enzymes R74.8 [facility] [address] 94401- 6071 Jul, [facility] [id number] [place] [address] 71247- 0717 Jul, [facility] [id number] [place] [address] 52869- 6843 Jul, [facility] [id number] [place] [address] 49752- 7722 Jul, Post-menopausal Z78.0 [facility] [address] 80288- 4106 Jul, Stress incontinence of urine N39.3 [facility] [id number] [place] [address] 78690- 9857 Jul, [facility] [id number] [place] [address] 06690- 4391 Jul, [facility] [id number] [place] [address] 97890- 2392 Jul, Stress incontinence of urine N39.3 and Cough R05 [facility] [id number] [place] [address] 13500- 0779 Jul, [facility] [id number] [place] [address] 28886- 1163 Jul, [facility] [id number] [place] [address] 32135- 6526 Jul, [facility] [id number] [place] [address] 28154- 4242 Jul, Gastroesophageal reflux disease, esophagitis presence not specified K21.9 [facility] [address] [place] [address] 13995- 7086 Jun, Diabetic polyneuropathy associated with type 2 diabetes mellitus E11.42 [facility] [id number] [place] [address] 87889- 0386 Jun, Diabetic polyneuropathy associated with type 2 diabetes mellitus E11.42 ; Coronary artery disease involving picayune coronary artery of picayune 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 I25.118 and Paroxysmal atrial fibrillation I48.0 [place] [id number] [place] [address] 83864- 2349 Jun, [place] [id number] [place] [address] 65887- 1407 Jun, [facility] [id number] [place] [address] 14542 2540 Jun, Gastroenteritis K52.9 [facility] [id number] [place] [address] 97479 2546 Jun, Gastroenteritis K52.9 [facility] [address] [place] [address] 93686 254 Jun, [facility] [id number] [place] [address] 66983 2547 Jun, [facility] [address] [place] [address] 75816- 6633 Jun, Sprain of right ankle, unspecified ligament, initial encounter S93.401A ; Type 2 diabetes mellitus with diabetic neuropathy, without long-term current use of insulin E11.40 ; Atherosclerosis of picayune artery of both lower extremities with intermittent claudication I70.213 ; 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 ; Chronic atrial fibrillation I48.2 and Crohn''s disease without complication, unspecified gastrointestinal tract location K50.90 [facility] [address] [place] [address] 48851 -5481 17 Jun, 2017 Cough R05 and Chronic obstructive pulmonary disease with acute lower respiratory infection J44.0 [facility] [id number] [place] [address] 08041- 9387 Jun, [place] [id number] [place] [address] 00697- 7050 Jun, Coughing R05 ; Unspecified atherosclerosis of picayune arteries of extremities, unspecified extremity I70.209 ; Type 2 diabetes mellitus with diabetic peripheral angiopathy without gangrene E11.51 ; Crohn''s disease without complication, unspecified gastrointestinal tract location K50.90 ; Other chronic pancreatitis K86.1 and Chronic atrial fibrillation I48.2 [facility] [id number] [place] [address] 10496 -0759 Jun, [place] [id number] [place] [address] 01036- 0734 Jun, Bipolar affective disorder, currently depressed, moderate F31.32 ; Vascular dementia without behavioral disturbance F01.50 and Generalized anxiety disorder F41.1 [place] [id number] [place] [address] 22760- 8789 May, Generalized anxiety disorder F41.1 [place] [id number] [place] [address] 12732- 7049 May, [place] [id number] [place] [address] 68854- 7915 May, [place] [id number] [place] [address] 35485- 0555 May, Coughing R05 [place] [id number] [place] [address] 98451- 3472 09 May, 2017 [place] [id number] [place] [address] 43521- 3504 May, Bipolar affective disorder, currently depressed, moderate F31.32 ; Vascular dementia without behavioral disturbance F01.50 and Generalized anxiety disorder F41.1 [place] [id number] [place] [address] 78674- 5061 Apr, Generalized anxiety disorder F41.1 [place] [id number] [place] [address] 55540- 1236 Apr, [place] [id number] [place] [address] 41096- 5660 Apr, Vascular dementia without behavioral disturbance F01.50 ; Generalized anxiety disorder F41.1 and Bipolar affective disorder, currently depressed, moderate F31.32 [place] [id number] [place] [address] 35517- 7098 Apr, Generalized anxiety disorder F41.1 [facility] [id number] [place] [address] 10095 -8748 Apr, Cough R05 and Acute exacerbation of chronic obstructive pulmonary disease (COPD) J44.1 [place] [id number] [place] [address] 22587- 3087 Apr, [facility] [id number] [place] [address] 93819 -1372 Mar, Cough R05 and Cigarette nicotine dependence without complication F17.210 [place] [id number] [place] [address] 86638- 5989 Mar, [place] [id number] [place] [address] 42228- 3837 Feb, Generalized anxiety disorder F41.1 ; Major depressive disorder, recurrent episode, moderate F33.1 ; Vascular dementia without behavioral disturbance F01.50 and Unspecified psychosis F29 [place] [id number] [place] [address] 71057- 4688 Feb, [place] [id number] [place] [address] 54043- 5048 Feb, [place] [id number] [place] [address] 64904- 9043 Feb, Generalized anxiety disorder F41.1 [place] [id number] [place] [address] 82042- 3405 Feb, Generalized anxiety disorder F41.1 [place] [address] 55770- 8094 Feb, Dizziness R42 ; Chronic fatigue R53.82 ; Postconcussion syndrome F07.81 ; Fall, initial encounter W19.XXXA and Disorientation R41.0 [place] [address] 87698- 6547 Feb, Postconcussion syndrome F07.81 ; Injury of head, initial encounter S09.90XA ; Fall, initial encounter W19.XXXA ; Disorientation R41.0 and Acute cystitis with hematuria N30.01 [place] [address] 06076- 5572 Jan, Gastroesophageal reflux disease, esophagitis presence not specified K21.9 ; Post-menopausal Z78.0 and Migraine without aura and without status migrainosus, not intractable G43.009 [place] [id number] [place] [address] 71057- 9950 Jan, [place] [id number] [place] [address] 11596- 8744 Jan, Generalized anxiety disorder F41.1 ; Major depressive disorder, recurrent episode, moderate F33.1 ; Vascular dementia without behavioral disturbance F01.50 and Unspecified psychosis F29 [place] [address] 56569- 7827 Jan, Pneumonia of left lower lobe due to infectious organism J18.1 [place] [id number] [place] [address] 15156- 0127 Jan, Migraine without aura and with status migrainosus, not intractable G43.001 [facility] [address], [place] [address] -7481 04 Jan, 2017 Migraine without aura and without status migrainosus, not intractable G43.009 [facility] [address] [place] [address] 53938- 2458 19 Dec, 2016 Hematoma T14.8 [facility] [id number] [place] [address] 95228- 1247 Dec, [facility] [id number] [place] [address] 48066 -0600 Nov, Fatigue, unspecified type R53.83 [place] [id number] [place] [address] 46165- 8409 Nov, Scabies B86 and Coronary artery disease involving picayune coronary artery of picayune 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 I25.118 [place] [id number] [place] [address] 64866- 0821 Nov, [facility] [id number] [place] [address] 88364- 9442 Nov, [place] [id number] [place] [address] 60868- 3443 Oct, [place] [id number] [place] [address] 03324- 0397 Oct, Generalized anxiety disorder F41.1 and Major depressive disorder, recurrent episode, moderate F33.1 [facility] [address] [place] [address] 06490- 4283 Oct, Cramp of both lower extremities R25.2 [place] [id number] [place] [address] 12904- 7945 Oct, Leg cramps R25.2 [place] [id number] [place] [address] 18443- 2423 Oct, Chronic pain syndrome G89.4 [place] [address], [place] [address]- 3990 17 Oct, 2016 [facility] [address] [place] [address] 30140- 3731 14 Oct, 2016 [facility] [id number] [place] [address] 27105- 9003 11 Oct, 2016 Routine gynecological examination Z01.419 and Screening for breast cancer Z12.31 [place] [id number] [place] [address] 27722- 3412 28 Sep, 2016 Diarrhea R19.7 [place] [id number] [place] [address] 93058- 2339 Sep, Back pain M54.9 [place] [id number] [place] [address] 51036- 9336 Sep, [place] [id number] [place] [address] 92524- 3608 Sep, [facility] [id number] [place] [address] 61266 -3747 August, Xeroderma Q80.9 [place] [id number] [place] [address] 05412- 4116 August, Dementia without behavioral disturbance, unspecified dementia type F03.90 [place] [id number] [place] [address] 77369- 7826 August, Chronic pain syndrome G89.4 [place] [id number] [place] [address] 16145- 7841 August, [facility] [id number] [place] [address] 93999- 7193 August, Hyperlipidemia E78.5 ; Other fatigue R53.83 and Other specified hypotension I95.89 [facility] [address], [place] [address] -4955 August, Dysuria R30.0 ; Other fatigue R53.83 and Other specified hypotension I95.89 [facility] [id number] [place] [address] 47403- 0144 August, [facility] [address] 48154- 8578 Jul, Pain in left knee M25.562 and Gastroenteritis K52.9 [facility] [address] 64289- 0543 Jul, [facility] [address] 38458- 1443 Jul, Diarrhea R19.7 [facility] [address] 98696 -7095 Jul, Spider bite, accidental or unintentional, initial encounter T63.301A [place] [address] 25251- 3606 Jul, Primary osteoarthritis of right knee M17.11 and Arthritis M19.90 [facility] [address] 33501- 7269 Jul, Generalized anxiety disorder F41.1 and Major depressive disorder, recurrent episode, moderate F33.1 [facility] [id number] [place] [address] 51407- 6489 Jul, Type 2 diabetes mellitus with diabetic polyneuropathy E11.42 and Temporal headache R51 [facility] [id number] [place] [address] 09633- 3056 Jul, Back pain M54.9 [facility] [id number] [place] [address] 58998- 5407 Jul, [facility] [address] 15769- 5229 Jul, [facility] [id number] [place] [address] 20092- 0675 Jun, Nausea R11.0 [facility] [address] [place] [address] Jun, Acute suppurative otitis media of both ears without spontaneous rupture of tympanic membranes, recurrence not specified H66.003 and COPD exacerbation J44.1 [facility] [address] 65038- 1066 Jun, Generalized anxiety disorder F41.1 [place] [address] 92766- 4079 16 Jun, 2016 [facility] [address] 66402 -7936 Jun, [facility] [address] 11751 -9997 Jun, Shortness of breath R06.02 and COPD exacerbation J44.1 [place] [address] 52502- 1955 Jun, Eczema, unspecified type L30.9 [place] [address] 68189- 9390 Jun, [place] [address] 73676- 0493 May, [place] [id number] [place] [address] 45147- 3836 May, Muscle cramping R25.2 [place] [id number] [place] [address] 63954- 3949 May, [place] [address] 21864- 9606 Apr, Diarrhea R19.7 [place] [address] 42963- 0518 Apr, [place] [id number] [place] [address] 60279- 8253 Apr, Chronic pain syndrome G89.4 [place] [id number] [place] [address] 92285- 0607 16 Apr, 2016 Cramp of both lower extremities R25.2 and Vascular dementia without behavioral disturbance F01.50 [place] [address] 27481- 9217 Apr, Type 2 diabetes mellitus with diabetic polyneuropathy E11.42 and Cigarette nicotine dependence without complication F17.210 [place] [address] 20347- 9222 Mar, Generalized anxiety disorder F41.1 [place] [address] 62738- 4582 Feb, Generalized anxiety disorder F41.1 and Major depressive disorder, recurrent episode, moderate F33.1 [place] [address] 61010- 4761 Feb, [facility] [address] [address] [address] Feb, Dysuria R30.0 and Acute cystitis with hematuria N30.01 [place] [address] [address]00- 2930 Jan, [place] [address] 0[address]32- 2725 Jan, [place] [address] 68705- 6057 Jan, [place] [address] 46978- 0344 Jan, [facility] [address] [address] Jan, Wasp sting, accidental or unintentional, initial encounter T63.461A [place] [address] 83941- 6567 06 Jan, 2016 Encounter for immunization Z23 [place] [address] 14446- 4954 Jan, [facility] [address], [place] [address] 00[address] Jan, [facility] [id number] [place] [address] 56033- 6149 28 Dec, 2015 Generalized anxiety disorder F41.1 and Major depressive disorder, recurrent episode, moderate F33.1 [facility] [id number] [place] [address] 73819- 5860 21 Dec, 2015 Routine gynecological examination Z01.419 ; Postmenopausal Z78.0 ; Screening breast examination Z12.39 ; Osteopenia M85.80 and Breast cancer screening Z12.39 [facility] [address] [place] [address] [id number] [place] [address] 62518- 2711 20 Dec, 2015 [facility] [id number] [place] [address] 46379- 4679 19 Dec, 2015 [facility] [id number] [place] [address] 59100- 7887 16 Dec, 2015 [facility] [id number] [place] [address] 50917- 4300 16 Dec, 2015 [facility] [id number] [place] [address] 14857- 4618 14 Dec, 2015 [facility] [id number] [place] [address] 37026- 0600 Dec, [facility] [id number] [place] [address] 12916- 6908 Nov, [facility] [id number] [place] [address] 23200 -1408 Nov, Cough R05 ; Other viral agents as the cause of diseases classified elsewhere B97.89 and Acute upper respiratory infection, unspecified J06.9 [facility] [address], [place] [address]- 5141 Nov, [facility] [id number] [place] [address] 35246- 6232 Nov, [facility] [address], [place] [address]- 7637 Nov, [facility] [address], [place] [address]- 5514 Nov, [facility] [address], [place] [address]- 1512 Nov, [facility] [id number] [place] [address] 42375- 7641 Oct, [facility] [id number] [place] [address] 72120- 0903 Oct, [facility] [id number], [place] [address]- 9510 Oct, [facility] [id number] [place] [address] 03474- 6763 Oct, Chronic pain syndrome G89.4 [facility] [address], [place] [address]- 4036 Sep, Generalized anxiety disorder F41.1 and Major depressive disorder, recurrent episode, moderate F33.1 [facility] [address], [place] [address]- 2714 Sep, [facility] [address], [place] [address]- 3908 Sep, [facility] [address], [place] [address]- 2437 14 Sep, 2015 Generalized anxiety disorder F41.1 [facility] [address], [place] [address]- 3799 13 Sep, 2015 Cramp of both lower extremities R25.2 and Cervicalgia M54.2 [facility] [address], [place] [address]- 4011 06 Sep, 2015 Generalized anxiety disorder F41.1 [facility] [id number], [place] [address]- 0115 Sep, [facility] [id number] [place] [address] 94567 -9271 August, Rash R21 ; Itching L29.9 and Allergic response, subsequent encounter T78.40XD [facility] [id number] [place] [address] 31595- 8889 August, Primary insomnia F51.01 [facility] [id number] [place] [address] 50190 -2697 August, Rash R21 ; Itching L29.9 and Allergic response, initial encounter T78.40XA [place] [address] [place] [id number] [place] [address] 39114- 2234 August, [place] [address] [place] [id number] [place] [address] 24257- 0156 August, Cramp of both lower extremities R25.2 [place] [address] [place] [id number] [place] [address] 80565- 4002 August, Back pain M54.9 [place] [address] [place] [id number] [place] [address] 35816- 8274 August, [place] [address] [place] [id number] [place] [address] 82261- 8940 August, [facility] [id number] [place] [address] 03974 -6712 August, Cramp of both lower extremities R25.2 [place] [address] [place] [id number] [place] [address] 58783- 7144 August, [place] [address] [place] [id number] [place] [address] 53968- 2111 August, Syncope R55 ; Paroxysmal atrial fibrillation I48.0 ; Dementia without behavioral disturbance, unspecified dementia type F03.90 and Chronic pain syndrome G89.4 [place] [address] [place] [id number] [place] [address] 08186- 6778 August, Type 2 diabetes mellitus with diabetic polyneuropathy E11.42 and Syncope R55 [facility] [id number] [place] [address] 78134- 6648 Jul, [facility] [id number] [place] [address] 59700- 6304 Jul, [facility] [id number] [place] [address] 26571- 0600 Jul, [facility] [id number] [place] [address] 08238- 6419 Jul, [facility] [id number] [place] [address] 82320- 9830 Jul, [facility] [address] [id number] [place] [address] 27587- 9765 Jul, UTI (urinary tract infection) N39.0 [facility] [address] [place] [id number] [place] [address] 20409- 3337 Jul, [facility] [address] [id number] [place] [address] 36945- 8582 Jul, Major depressive disorder, recurrent episode, moderate F33.1 and Generalized anxiety disorder F41.1 [facility] [address] [place] [id number] [place] [address] 99358- 8902 Jul, Generalized anxiety disorder F41.1 [facility] [address] [place] [address] 63838- 7166 Jul, Diarrhea R19.7 [facility] [address] [place] [address] 09649- 0556 Jul, [facility] [id number] [place] [address] 16985- 7531 Jun, [facility] [id number] [place] [address] 31405- 0774 Jun, Eczema L30.9 [facility] [address], [place] [address]- 2649 Jun, [facility] [address], [place] [address]- 5456 Jun, COPD (chronic obstructive pulmonary disease) J44.9 [facility] [address], [place] [address]- 1956 Jun, [facility] [id number] [place] [address] 02424- 8349 Jun, Major depressive disorder, recurrent episode, moderate F33.1 and Generalized anxiety disorder F41.1 [facility] [address], [place] [address]- 8466 May, [facility] [address], [place] [address]- 1311 May, UTI (urinary tract infection) N39.0 [facility] [address], [place] [address]- 5781 May, [facility] [address], [place] [address]- 8403 May, [facility] [address], [place] [address]- 5869 May, [facility] [address], [place] [address]- 2776 May, [facility] [address], [place] [address]- 4836 Apr, Major depressive disorder, recurrent episode, moderate F33.1 and Generalized anxiety disorder F41.1 [facility] [address], [place] [address]- 0832 Apr, COPD (chronic obstructive pulmonary disease) J44.9 [facility] [address], [place] [address]- 3296 Apr, [facility] [id number], [place] [address]- 5534 Apr, Atrial flutter I48.92 [facility] [id number] [place] [address] 96523- 4280 Apr, [facility] [id number] [place] [address] 63911- 9167 Apr, [facility] [id number] [place] [address] 48145- 0876 Mar, [facility] [id number] [place] [address] 15026- 9787 Mar, [facility] [id number] [place] [address] 74358- 7136 Mar, [facility] [id number] [place] [address] 62903- 0059 Mar, Hyperlipidemia E78.5 ; Type 2 diabetes mellitus with diabetic polyneuropathy E11.42 ; Major depressive disorder, recurrent episode, moderate F33.1 and Chronic pain syndrome G89.4 [facility] [id number] [place] [address] 10475- 3535 Mar, [facility] [id number] [place] [address] 55699- 0378 Mar, [facility] [id number] [place] [address] 32219- 5894 Mar, [facility] [id number] [place] [address] 37789- 4960 Mar, [facility] [id number] [place] [address] 82575- 1610 Feb, COPD (chronic obstructive pulmonary disease) J44.9 and Back pain M54.9 [facility] [address], [place] [address]- 2503 Feb, [facility] [address] [place] [id number] [place] [address] 57103- 6138 Feb, [facility] [address], [place] [address]- 7221 Feb, [facility] [address] [id number] [place] [address] 95632- 2197 Feb, [facility] [address], [place] [address]- 0167 Feb, [facility] [address] [id number] [place] [address] 55604- 4138 Feb, [facility] [id number] [place] [address] 83065- 6266 Feb, [facility] [id number] [place] [address] 75870- 0435 Feb, [facility] [id number] [place] [address] 21025- 1257 Feb, Diabetes E11.9 ; Back pain M54.9 and COPD (chronic obstructive pulmonary disease) J44.9 [facility] [address] [place] [address] 76832- 0139 Jan, [facility] [id number] [place] [address] 37479- 3718 Jan, Major depression, recurrent F33.9 and Generalized anxiety disorder F41.1 [facility] [address] [place] [address] 28241- 9622 Jan, Chronic pain G89.29 [facility] [address], [place] [address]- 0209 Jan, [facility] [id number] [place] [address] 65236- 8703 Jan, [facility] [id number] [place] [address] 42162- 7064 Jan, [facility] [address], [place] [address]- 4007 Jan, [facility] [id number] [place] [address] 56911- 6230 Jan, Nicotine dependence F17.200 [facility] [address] 52890- 4486 Jan, Nicotine dependence F17.200 and Back pain M54.9 [facility] [id number] [place] [address] 02881- 9122 Jan, [facility] [id number] [place] [address] 18198- 7500 28 Dec, 2014 [facility] [id number] [place] [address] 66917- 6335 25 Dec, 2014 Anxiety, generalized 300.02 and Major depression, recurrent 296.30 [facility] [id number] [place] [address] 67064- 6595 24 Dec, 2014 [facility] [id number] [place] [address] 97932- 4342 21 Dec, 2014 [facility] [id number] [place] [address] 57248- 5648 17 Dec, 2014 [facility] [id number] [place] [address] 79945- 8166 15 Dec, 2014 [facility] [id number] [place] [address] 91306- 3367 14 Dec, 2014 [facility] [id number] [place] [address] 74514- 0833 11 Dec, 2014 [facility] [id number] [place] [address] 41217- 9963 10 Dec, 2014 [facility] [id number] [place] [address] 37332- 5705 08 Dec, 2014 Skin tear 879.8 [facility] [address] [place] [address] 69689- 8090 08 Dec, 2014 Routine gynecological examination V72.31 ; Breast cancer screening V76.10 and Family history of breast cancer in first degree relative V16.3 [facility] [address], [place] [address]- 7275 Dec, [facility] [id number] [place] [address] 88242- 1345 Dec, [facility] [address], [place] [address]- 8721 Nov, [facility] [id number] [place] [address] 49736- 5600 Nov, [facility] [address] [place] [address] 13773- 4915 Nov, Poor balance 781.99 and Vascular dementia, uncomplicated 290.40 [facility] [id number] [place] [address] 07740- 9192 Nov, [facility] [id number] [place] [address] 59482- 9779 Nov, Major depression, recurrent 296.30 and Anxiety, generalized 300.02 [facility] [id number] [place] [address] 42610- 8116 Nov, [facility] [id number] [place] [address] 10804- 3398 Nov, [facility] [address], [place] [address]- 6284 Nov, [facility] [id number] [place] [address] 03674- 5683 Nov, [facility] [address], [place] [address]- 3137 Nov, Vascular dementia, uncomplicated 290.40 and Lumbago 724.2 [facility] [address], [place] [address]- 0862 Nov, [facility] [id number] [place] [address] 22358- 8344 Nov, [facility] [address], [place] [address]- 0432 Nov, [facility] [address], [place] [address]- 8499 Oct, [facility] [address], [place] [address]- 0760 Oct, [facility] [id number] [place] [address] 29828- 9039 Oct, [facility] [address], [place] [address]- 2992 Oct, COPD (chronic obstructive pulmonary disease) 496 and Hyperlipidemia 272.4 [facility] [address], [place] [address]- 8455 Oct, Major depression, recurrent 296.30 and Anxiety, generalized 300.02 [facility] [id number], [place] [address]- 7133 Oct, [facility] [address], [place] [address]- 1181 Oct, [facility] [address], [place] [address]- 3310 Oct, [facility] [address], [place] [address]- 3644 Sep, Lumbago 724.2 and Anxiety state, unspecified 300.00 [facility] [address], [place] [address]- 4068 Sep, [facility] [address], [place] [address]- 8912 Sep, [facility] [address], [place] [address]- 8600 August, [facility] [id number] [address]- 2385 August, Major depression, recurrent 296.30 ; Anxiety, generalized 300.02 and No condition on [place] II V71.09 [facility] [id number] [address]- 6410 August, [facility] [address] [facility] [id number] [place] 9056 August, [facility] [address], [place] [address]- 6010 Jul, [facility] [address] [facility] [id number] [place] [address]- 7116 Jul, [facility] [address] [place] [address]- 2154 Jul, [facility] [id number] [place] [address]- 0159 Jun, [facility] [address] [place] [address]- 1172 Jun, [facility] [id number] [address]- 7609 Jun, [facility] [address] [place] [address]- 4208 Jun, [facility] [id number], [place] [address]- 0140 Jun, [facility] [address] [place] [address]- 7943 Jun, [facility] [id number] [address]- 1649 23 Jun, 2014 [facility] [id number]- 6342 17 Jun, 2014 [facility] [address] [facility] [id number]- 5691 Jun, [facility] [id number]- 8078 Jun, [facility] [place] [facility] [address] [id number] [place] [address]- 4594 10 Jun, 2014 [facility] [place] [facility] [address] [id number] [place] [address]- 1315 10 Jun, 2014 [facility] [place] [facility] [address] [id number] [place] [address]- 6610 07 Jun, 2014 [facility] [place] [facility] [address] [id number] [place] [address]- 5554 07 Jun, 2014 [facility] [place] [facility] [address] [id number] [place] [address]- 3702 Jun, [facility] [place] [facility] [address] [id number] [place] [address]- 3494 Jun, 2014 [facility] [place] [facility] [address] [id number] [place] [address]- 3319 May, [facility] [place] [facility] [address] [id number] [place] [address]- 4415 May, 2014 [facility] [place] [facility] [address] [id number] [place] [address]- 0390 May, [facility] [place] [facility] [address] [facility] [id number] [place] [address]- 4162 May, 2014 [facility] [place] [facility] [address] [facility] [id number] [place] [address]- 6630 May, 2014 [facility] [place] [facility] [address] [id number] [place] [address]- 7316 May, 2014 [facility] [place] [facility] [address] [id number] [place] [address]- 2549 May, 2014 [facility] [place] [facility] [address] [id number] [place] [address]- 2990 12 May, 2014 [facility] [place] [facility] [address] [facility] [id number] [place] [address] May, 2014 [facility] [place] [facility] [address] [facility] [id number] [place] [address] May, 2014 [facility] [place] [facility] [address] [id number] [place] [address] May, 2014 [facility] [place] [facility] [address] [id number] [place] [address] May, 2014 [facility] [place] [facility] [address] [id number] [place] [address] May, 2014 [facility] [place] [facility] [address] [id number] [place] [address] May, [facility] [place] [facility] [address] [id number] [place] [address] Apr, [facility] [place] [facility] [address] [id number] [place] [address] Apr, [facility] [place] [facility] [address] [id number] [place] [address] Apr, [facility] [place] [facility] [address] [id number] [place] [address] Apr, [facility] [place] [facility] [address] [id number] [place] [address] Apr, [facility] [place] [facility] [address] [id number] [place] [address] Apr, [facility] [place] [facility] [address] [id number] [place] [address] Apr, [facility] [place] [facility] [address] [id number] [place] [address] Apr, [facility] [place] [facility] [address] [id number] [place] [address] Apr, [facility] [place] [facility] [address] [id number] [place] [address] Apr, [facility] [place] [facility] [address] [id number] [place] [address] Apr, [facility] [place] [facility] [address] [id number] [place] [address] Apr, [facility] [place] [facility] [address] [id number] [place] [address] Mar, [facility] [place] [facility] [address] [id number] [place] [address] 31 Mar, 2014 [facility] [place] [facility] [address] [id number] [place] [address] 30 Mar, 2014 [facility] [place] [facility] [address] [id number] [place] [address] 30 Mar, 2014 [facility] [place] [facility] [address] [id number] [place] [address] Mar, [facility] [place] [facility] [address] [id number] [place] [address] Mar, [facility] [place] [facility] [address] [id number] [place] [address] Mar, [facility] [place] [facility] [address] [id number] [place] [address] 19 Mar, 2014 [facility] [place] [facility] [address] [id number] [place] [address] 15 Mar, 2014 [facility] [place] [facility] [address] [id number] [place] [address] 15 Mar, 2014 [facility] [place] [facility] [address] [id number] [place] [address] 15 Mar, 2014 [facility] [place] [facility] [address] [id number] [place] [address] 15 Mar, 2014 [facility] [place] [facility] [address] [id number] [place] [address] 15 Mar, 2014 [facility] [facility] [address] [id number] [place] [address] 15 Mar, 2014 [facility] [place] [facility] [address] [id number] [place] [address] 8103 Mar, [facility] [place] [facility] [address] [id number] [place] [address] 2888 Mar, [facility] [place] [facility] [address] [id number] [place] [address] 6497 Mar, [facility] [place] [facility] [address] [id number] [place] [address] 5441 Mar, [facility] [place] [facility] [address] [id number] [place] [address] 1387 Mar, [facility] [place] [facility] [address] [id number] [place] [address] 3624 Mar, [facility] [place] [facility] [address] [id number] [place] [address]- 2025 Feb, [facility] [place] [facility] [address] [id number] [place] [address]- 3860 Feb, [facility] [place] [facility] [address] [id number] [place] [address]- 1716 Feb, [facility] [place] [facility] [address] [id number] [place] [address]- 3664 Feb, [facility] [place] [facility] [address] [id number] [place] [address]- 4818 Feb, [facility] [place] [facility] [address] [id number] [place] [address]- 3769 Feb, [facility] [place] [facility] [address] [id number], [place] [address]- 2565 Feb, [facility] [place] [facility] [address] [id number] [place] [address]- 9404 Feb, [facility] [place] [facility] [address] [id number] [place] [address]- 1445 Feb, [facility] [place] [address] [id number], [place] [address]- 0482 Feb, [facility] [place] [facility] [address] [id number] [place] [address]- 4031 Feb, [facility] [place] [facility] [address] [id number] [place] [address] Feb, [facility] [place] [facility] [address] [id number] [place] [address] Feb, [facility] [place] [facility] [address] [id number] [place] [address]- 4168 Feb, [facility] [place] [facility] [address] [id number] [place] [address]- 8321 Feb, [facility] [place] [facility] [address] [id number] [place] [address]- 3238 Feb, [facility] [place] [facility] [address] [id number] [place] [address]- 5263 Feb, [facility] [place] [facility] [address] [id number] [place] [address]- 3096 Jan, [facility] [place] [facility] [address] [id number] [place] [address]- 8533 Jan, [facility] [place] [address] [id number] [place] [address]- 7861 Jan, [facility] [place] [facility] [address] [id number] [place] [address]- 6546 Jan, [facility] [place] [address] [id number] [place] [address]- 4189 Jan, [facility] [place] [address] [id number] [place] [address]- 7024 Jan, [facility] [place] [facility] [address] [id number] [place] [address]- 3231 16 Jan, 2014 [facility] [address] [id number] [place] [address] 16 Jan, 2014 [facility] [address] [id number] [place] [address]- 3439 Jan, [facility] [place] [address] [id number] [place] [address]- 6633 Jan, [facility] [address] [id number] [place] [address]- 0705 Jan, [facility] [address] [id number] [place] [address]- 4302 Dec, [facility] [address] [id number] [place] [address]- 3750 Dec, [facility] [address] [id number] [place] [address]- 7666 Nov, [facility] [address] [id number] [place] [address]- 5823 Nov, [facility] [address] [id number] [place] [address]- 9645 Nov, [facility] [address] [id number] [place] [address]- 2225 Nov, [facility] [address] [id number] [place] [address]- 6241 Nov, [facility] [address] [id number] [place] [address]- 4919 Nov, [facility] [address] [id number], [place] [address]- 0544 Nov, [facility] [address] [id number], [place] [address]- 8534 Oct, [facility] [address] [id number] [place] [address]- 8325 Oct, [facility] [address] [id number], [place] [address]- 5853 Oct, [facility] [address] [id number] [place] [address] Oct, [facility] [address] [id number] [place] [address]- 3178 30 Sep, 2013 [facility] [address] [id number] [place] [address]- 7538 Sep, [facility] [address] [id number] [place] [address]- 6146 Sep, [facility] [address] [id number] [place] [address]- 6990 Sep, [facility] [address] [id number] [place] [address]- 8960 Sep, [facility] [address] [id number] [place] [address]- 9465 Sep, [facility] [address] [id number] [place] [address]- 4601 Sep, [facility] [address] [id number] [place] [address]- 0378 Sep, [facility] [address] [id number] [place] [address]- 8912 Sep, [facility] [address] [id number] [place] [address]- 7226 Sep, [facility] [address] [id number] [place] [address]- 4925 Sep, [facility] [address] [id number] [place] [address]- 6232 Sep, [facility] [address] [id number] [place] [address]- 5033 Sep, [facility] [address] [id number] [place] [address]- 0285 Sep, [facility] [address] [id number] [place] [address]- 0352 August, [facility] [address] [id number] [place] [address]- 5520 August, [facility] [address] [id number] [place] [address]- 0657 August, [facility] [address] [id number] [place] [address]- 0400 August, [facility] [address] [id number] [place] [address]- 7203 August, [facility] [address] [id number] [place] [address]- 4951 August, [facility] [address] [id number] [place] [address]- 9520 August, [facility] [address] [id number] [place] [address]- 8645 August, [facility] [address] [id number] [place] [address]- 6189 August, [facility] [address] [id number] [place] [address]- 2533 August, [facility] [address] [id number] [place] [address]- 1968 August, [facility] [address] [id number] [place] [address]- 6815 August, [facility] [address] [id number] [place] [address]- 8025 August, [facility] [address] [id number] [place] [address]- 2283 August, [facility] [address] [id number] [place] [address]- 9676 August, [facility] [address] [id number] [place] [address]- 7128 August, [facility] [address] [id number] [place] [address]- 4393 August, [facility] [address] [id number] [place] [address]- 5654 August, [facility] [address] [id number] [place] [address] August, [facility] [address] [id number] [place] [address]- 9516 Jul, [facility] [address] [id number] [place] [address]- 2266 Jul, [facility] [address] [id number] [place] [address]- 2480 Jul, [facility] [address] [id number] [place] [address]- 5484 Jul, [facility] [address] [id number] [place] [address]- 2794 Jun, [facility] [address] [id number] [place] [address]- 4639 Jun, [facility] [address] [id number] [place] [address]- 5262 Jun, [facility] [address] [id number] [place] [address]- 0285 Jun, [facility] [address] [id number] [place] [address]- 4661 Jun, [facility] [address] [id number] [place] [address]- 3910 Jun, [facility] [address] [id number] [place] [address]- 1300 Jun, [facility] [address] [id number] [place] [address]- 5984 Jun, [facility] [address] [id number] [place] [address]- 0508 Jun, [facility] [address] [id number] [place] [address]- 6617 Jun, [facility] [address] [id number] [place] [address]- 0127 May, [facility] [address] [id number] [place] [address]- 4086 May, [facility] [address] [id number] [place] [address]- 1816 May, [facility] [address] [id number] [place] [address]- 0826 May, [facility] [address] [id number] [place] [address]- 2549 May, [facility] [address] [id number] [place] [address]- 4326 May, [facility] [address] [facility] [id number] [place] [address]- 4058 May, [facility] [address] [facility] [id number] [place] [address]- 7648 May, [facility] [address] [id number] [place] [address]- 2919 May, [facility] [address] [facility] [id number] [place] [address]- 0995 May, [facility] [address] [facility] [id number] [place] [address]- 6955 18 May, 2013 [facility] [address] [facility] [id number] [place] [address]- 0185 17 May, 2013 [facility] [address] [facility] [id number] [place] [address]- 2546 May, [facility] [address] [id number] [place] [address]- 0629 May, [facility] [address] [facility] [id number] [place] [address]- 1746 10 May, 2013 [facility] [address] [facility] [id number] [place] [address]- 0072 07 May, 2013 [facility] [address] [id number] [place] [address]- 4142 07 May, 2013 [facility] [address] [id number] [place] [address]- 9748 17 Apr, 2013 [facility] [address] [id number] [place] [address]- 9630 Apr, [facility] [address] [id number] [place] [address]- 8267 Apr, [facility] [address] [id number] [place] [address]- 0741 Apr, [facility] [address] [id number] [place] [address]- 7700 Apr, [facility] [address] [id number] [place] [address]- 2885 Apr, [facility] [address] [id number] [place] [address]- 7880 Apr, [facility] [address] [id number] [place] [address]- 9320 Mar, [facility] [address] [id number] [place] [address]- 3978 Mar, [facility] [address] [id number] [place] [address]- 9416 Mar, [facility] [address] [id number] [place] [address]- 8197 Mar, [facility] [address] [id number] [place] [address]- 4953 Mar, [facility] [address] [id number] [place] [address]- 1636 Mar, [facility] [address] [id number] [place] [address]- 1125 Mar, [facility] [facility] [address] [id number] [place] [address]- 2802 Mar, [facility] [place] [facility] [address] [id number] [place] [address]- 5621 Mar, [facility] [place] [facility] [address] [id number] [place] [address]- 7673 Mar, [facility] [place] [facility] [address] [id number] [place] [address]- 1740 Mar, [facility] [address] [id number] [place] [address]- 4763 Feb, [facility] [place] [facility] [address] [id number] [place] [address]- 8274 Feb, [facility] [address] [id number] [place] [address]- 8018 Feb, [facility] [address] [id number] [place] [address]- 4157 20 Feb, 2013 [facility] [place] [facility] [address] [id number] [place] [address]- 0913 Feb, [facility] [place] [facility] [address] [id number] [place] [address]- 6464 19 Feb, 2013 [facility] [place] [facility] [address] [id number] [place] [address]- 0710 15 Feb, 2013 [facility] [place] [facility] [address] [id number], [place] [address]- 9538 14 Feb, 2013 [facility] [place] [facility] [address] [id number] [place] [address]- 5315 14 Feb, 2013 [facility] [place] [facility] [address] [id number], [place] [address]- 0286 13 Feb, 2013 [facility] [place] [facility] [address] [id number], [place] [address]- 9600 13 Feb, 2013 [facility] [place] [facility] [address] [id number], [place] [address]- 2583 Feb, [facility] [place] [facility] [address] [id number] [place] [address]- 4296 Feb, [facility] [place] [facility] [address] [id number] [place] [address]- 0102 Feb, [facility] [place] [facility] [address] [id number] [place] [address]- 7012 Feb, [facility] [place] [facility] [address] [id number] [place] [address]- 1303 Feb, [facility] [place] [facility] [address] [id number] [place] [address]- 5522 Jan, [facility] [place] [facility] [address] [id number] [place] [address]- 7626 Jan, [facility] [place] [facility] [address] [id number] [place] [address]- 8272 Jan, [facility] [place] [facility] [address] [id number] [place] [address]- 4288 Jan, [facility] [place] [facility] [address] [id number] [place] [address]- 2394 Jan, [facility] [place] [facility] [address] [id number] [place] [address]- 1537 Jan, [facility] [place] [facility] [address] [id number], [place] [address]- 4910 Jan, [facility] [place] [facility] [address] [id number], [place] [address]- 6320 Jan, [facility] [place] [facility] [address] [id number] [place] [address]- 1976 10 Jan, 2013 [facility] [place] [facility] [address] [id number] [place] [address]- 6310 27 Dec, 2012 [facility] [place] [facility] [address] [id number] [place] [address]- 0238 20 Dec, 2012 [facility] [place] [facility] [address] [id number] [place] [address]- 0116 19 Dec, 2012 [facility] [place] [facility] [address] [id number] [place] [address]- 0247 10 Dec, 2012 [facility] [place] [facility] [address] [id number] [place] [address]- 2946 04 Dec, 2012 [facility] [place] [facility] [address] [id number] [place] [address]- 9884 03 Dec, 2012 [facility] [place] [facility] [address] [id number] [place] [address]- 2571 Nov, [facility] [place] [facility] [address] [id number] [place] [address]- 5072 Nov, [facility] [place] [facility] [address] [id number] [place] [address]- 6909 Nov, [facility] [place] [facility] [address] [id number] [place] [address]- 6133 Nov, [facility] [place] [facility] [address] [id number] [place] [address]- 3237 Nov, [facility] [place] [facility] [address] [id number] [place] [address]- 2524 Nov, [facility] [place] [facility] [address] [id number] [place] [address]- 4223 Nov, [facility] [place] [facility] [address] [id number] [place] [address]- 5144 Nov, [facility] [place] [facility] [address] [id number] [place] [address]- 2548 14 Nov, 2012 [facility] [place] [facility] [address] [id number] [place] [address]- 2906 Nov, [facility] [place] [facility] [address] [id number] [place] [address]- 2546 Oct, [facility] [place] [facility] [address] [id number] [place] [address]- 7966 Oct, [facility] [place] [facility] [address] [id number] [place] [address]- 6028 Oct, [facility] [place] [facility] [address] [id number] [place] [address]- 8542 Oct, [facility] [place] [facility] [address] [id number] [place] [address]- 7393 Oct, [facility] [place] [facility] [address] [id number] [place] [address]- 1920 Oct, [facility] [place] [facility] [address] [id number] [place] [address]- 8149 Oct, [facility] [place] [facility] [address] [id number] [place] [address]- 4052 Oct, [facility] [place] [facility] [address] [id number] [place] [address]- 9139 Sep, [facility] [place] [facility] [address] [id number] [place] [address]- 2294 Sep, [facility] [place] [facility] [address] [id number] [place] [address]- 0979 Sep, [facility] [place] [facility] [address] [id number] [place] [address]- 0893 Sep, [facility] [place] [facility] [address] [id number] [place] [address]- 5341 Sep, [facility] [place] [facility] [address] [id number], [place] [address]- 2985 Sep, [facility] [place] [facility] [address] [id number] [place] [address]- 2320 Sep, [facility] [place] [facility] [address] [id number] [place] [address] Sep, [facility] [place] [facility] [address] [id number] [place] [address] August, [facility] [place] [facility] [address] [id number] [place] [address] August, [facility] [address] [id number] [place] [address] August, [facility] [address] [id number] [place] [address] August, [facility] [address] [id number] [place] [address] August, [facility] [address] [id number] [place] [address] Jul, [facility] [address] [id number] [place] [address] Jul, [facility] [address] [id number] [place] [address] Jul, [facility] [address] [id number] [place] [address] Jul, [facility] [address] [id number] [place] [address] Jul, [facility] [address] [id number] [place] [address] 18 Jun, 2012 [facility] [address] [id number] [place] [address] 18 Jun, 2012 [facility] [address] [id number] [place] [address]351 15 Jun, 2012 [facility] [address] [id number] [place] [address]- [address] 14 Jun, 2012 [facility] [place] [facility] [address] [id number] [place] [address]- [address] 12 Jun, 2012 [facility] [place] [facility] [address] [id number] [place] [address]- [address] 08 Jun, 2012 [facility] [address] [id number] [place] [address]- [address]297 08 Jun, 2012 [facility] [address] [id number] [place] [address] Jun, [facility] [address] [id number] [place] [address] Jun, [facility] [address] [id number] [place] [address] 2006 May, [facility] [address] [id number] [place] [address] May, [facility] [address] [id number] [place] [address]098 May, [facility] [address] [id number] [place] [address] May, [facility] [address] [id number] [place] [address]- [address]484 Apr, [facility] [address] [id number] [place] [address] Apr, [facility] [address] [id number] [place] [address] 78[address] Apr, [facility] [address] [id number] [place] [address] 1702 Apr, [facility] [address] [id number] [place] [address]- [address] Apr, [facility] [address] [id number] [place] [address] Apr, [facility] [address] [id number] [place] [address] 47[address] Apr, [facility] [address] [id number] [place] [address] Mar, [facility] [address] [place] [id number] Mar, [facility] [address] [id number] [place] [address] Mar, [facility] [place] [facility] [address] [id number] [place] [address]- 4[address] Mar, [facility] [place] [facility] [address] [id number] [place] [address]- 8786 Mar, [facility] [place] [facility] [address] [id number] [place] [address]- 4698 Mar, [facility] [place] [facility] [address] [id number] [place] [address]- 2490 Mar, [facility] [place] [facility] [address] [id number] [place] [address] 4[address] Mar, [facility] [place] [facility] [address] [id number] [place] [address]- 7881 Mar, [facility] [place] [facility] [address] [id number] [place] [address]- 4750 Mar, [facility] [place] [facility] [address] [id number] [place] [address]- 0603 Mar, [facility] [place] [facility] [address] [id number] [place] [address]- [address]248 Mar, [facility] [place] [facility] [address] [id number] [place] [address]- 57[address] Mar, [facility] [place] [facility] [address] [id number] [place] [address]- 5[address] Mar, [facility] [place] [facility] [address] [id number], [place] [address] Mar, [facility] [place] [facility] [address] [id number] [place] [address]- [address]134 Mar, [facility] [place] [facility] [address] [id number] [place] [address]- 9227 Mar, [facility] [place] [facility] [address] [id number] [place] [address]- 37[address] Feb, [facility] [place] [facility] [address] [id number] [place] [address]- 2043 Feb, [facility] [place] [facility] [address] [id number] [place] [address]- 6483 Feb, [facility] [place] [facility] [address] [id number] [place] [address]- 5806 Feb, [facility] [place] [facility] [address] [id number] [place] [address]- 3301 Feb, [facility] [place] [facility] [address] [id number] [place] [address]- 8634 Feb, [facility] [place] [facility] [address] [id number] [place] [address]- [address]139 Feb, [facility] [place] [facility] [address] [id number] [place] [address]- 6616 Feb, [facility] [place] [facility] [address] [id number] [place] [address]- 2674 Feb, [facility] [place] [facility] [address] [id number] [place] [address]- 4358 Feb, [facility] [place] [facility] [address] [id number] [place] [address]- 5086 Feb, [facility] [place] [facility] [address] [id number] [place] [address]- 9734 Feb, [facility] [place] [facility] [address] [id number] [place] [address]- 6595 Feb, [facility] [place] [facility] [address] [id number], [place] [address] Feb, [facility] [place] [facility] [address] [id number] [place] [address]- 4361 Feb, [facility] [place] [facility] [address] [id number] [place] [address]- 2856 Feb, [facility] [place] [facility] [address] [id number], [place] [address] Jan, [facility] [place] [facility] [address] [id number] [place] [address]- 0025 Jan, [facility] [place] [facility] [address] [id number] [place] [address]- 4816 Jan, [facility] [place] [facility] [address] [id number] [place] [address]- 9953 Jan, [facility] [place] [facility] [address] [id number] [place] [address]- 0021 Jan, [facility] [place] [facility] [address] [id number] [place] [address]- 0018 Jan, [facility] [place] [facility] [address] [id number] [place] [address]- 9968 Jan, [facility] [place] [facility] [address] [id number] [place] [address]- 2899 Jan, [facility] [place] [facility] [address] [id number] [place] [address] Jan, [facility] [place] [facility] [address] [id number] [place] [address] Jan, [facility] [place] [facility] [address] [id number] [place] [address] Jan, [facility] [place] [facility] [address] [id number] [place] [address] 8758 Jan, [facility] [place] [facility] [address] [id number], [place] [address] Jan, [facility] [place] [facility] [address] [id number] [place] [address] 44[address] Jan, [facility] [place] [facility] [address] [id number] [place] [address] 3279 Jan, [facility] [place] [facility] [address] [id number] [place] [address] 9[address] Jan, [facility] [place] [facility] [address] [id number], [place] [address] 04 Jan, 2012 [facility] [place] [facility] [address] [id number] [place] [address] 6326 21 Dec, 2011 [facility] [place] [facility] [address] [id number] [place] [address] 3956 20 Dec, 2011 [facility] [place] [facility] [address] [id number] [place] [address] 2546 18 Dec, 2011 [facility] [place] [facility] [address] [id number] [place] [address] 2546 18 Dec, 2011 [facility] [place] [facility] [address] [id number] [place] [address] 2546 10 Dec, 2011 [facility] [place] [facility] [address] [id number] [place] [address]- 8436 10 Dec, 2011 [facility] [place] [facility] [address] [id number] [place] [address] 2994 10 Dec, 2011 [facility] [place] [facility] [address] [id number] [place] [address]- 0181 07 Dec, 2011 [facility] [place] [facility] [address] [id number] [place] [address] 9622 30 Nov, 2011 [facility] [place] [facility] [address] [id number] [place] [address] 6007 Nov, [facility] [place] [facility] [address] [id number] [place] [address]- 2984 Nov, [facility] [place] [facility] [address] [id number] [place] [address]- 2542 Nov, [facility] [place] [facility] [address] [id number] [place] [address] 2546 Nov, [facility] [place] [facility] [address] [id number] [place] [address] 4033 Nov, [facility] [place] [facility] [address] [id number] [place] [address]- 2540 30 Oct, 2011 [facility] [place] [facility] [address] [id number] [place] [address]- 4382 30 Oct, 2011 [facility] [address] [id number] [place] [address]- 1598 Oct, [facility] [place] [facility] [address] [id number] [place] [address] 5526 Oct, [facility] [address] [id number] [place] [address] 6051 Oct, [facility] [place] [facility] [address] [id number] [place] [address] Oct, [facility] [address] [id number] [place] [address]- 2596 Oct, [facility] [place] [facility] [address] [id number] [place] [address] 0902 Sep, [facility] [place] [facility] [address] [id number] [place] [address] 6309 Sep, [facility] [place] [facility] [address] [id number] [place] [address]- 4257 Sep, [facility] [place] [facility] [address] [id number] [place] [address]- 7123 Sep, [facility] [address] [id number] [place] [address]- 1347 Sep, [facility] [place] [facility] [address] [id number] [place] [address]- 254 15 Sep, 2011 [facility] [place] [facility] [address] [id number] [place] [address]- 2897 14 Sep, 2011 [facility] [place] [facility] [address] [id number] [place] [address]- 1818 11 Sep, 2011 [facility] [place] [facility] [address] [id number] [place] [address]- 8870 05 Sep, 2011 [facility] [place] [facility] [address] [id number] [place] [address]- 2102 Sep, [facility] [address] [id number] [place] [address] 6870 August, [facility] [place] [facility] [address] [id number] [place] [address]- 3686 August, [facility] [place] [facility] [address] [id number] [place] [address] 8733 August, [facility] [place] [facility] [address] [id number] [place] [address]- 7876 August, [facility] [address] [id number] [place] [address]- 6935 August, [facility] [place] [facility] [address] [id number] [place] [address] 3659 Jul, [facility] [place] [facility] [address] [id number] [place] [address]- 0632 Jul, [facility] [address] [id number] [place] [address]- 2494 Jul, [facility] [place] [facility] [address] [id number] [place] [address]- 7293 Jul, [facility] [place] [facility] [address] [id number] [place] [address]- 0185 Jul, [facility] [place] [facility] [address] [id number] [place] [address] 3225 Jul, [facility] [place] [facility] [address] [id number], [place] [address] 9627 Jul, [facility] [place] [facility] [address] [id number] [place] [address]- 5523 Jun, [facility] [place] [facility] [address] [id number] [place] [address]- 1505 Jun, [facility] [place] [facility] [address] [id number] [place] [address]- 7884 Jun, [facility] [place] [facility] [address] [id number], [place] [address]- 4812 Jun, [facility] [place] [facility] [address] [id number] [place] [address]- 8094 Jun, [facility] [place] [facility] [address] [id number] [place] [address]- 0366 May, [facility] [place] [facility] [address] [id number] [place] [address] 7636 May, [facility] [place] [facility] [address] [id number] [place] [address]- 7544 May, [facility] [place] [facility] [address] [id number] [place] [address]- 8737 May, [facility] [place] [facility] [address] [id number] [place] [address]- 5944 May, [facility] [place] [facility] [address] [facility] [id number] [place] [address]- 2575 May, [facility] [place] [facility] [address] [id number] [place] [address]- 1846 Apr, [facility] [place] [facility] [address] [facility] [id number] [place] [address] 1886 Mar, [facility] [place] [facility] [address] [facility] [id number] [place] [address]- 1064 Feb, [facility] [place] [facility] [address] [id number] [place] [address] 2549 Feb, [facility] [place] [facility] [address] [id number] [place] [address]- 2547 Feb, [facility] [place] [facility] [address] [id number] [place] [address]- 8553 Feb, [facility] [place] [facility] [address] [facility] [id number] [place] [address]- 0504 Jan, [facility] [place] [facility] [address] [id number] [place] [address]- 6966 Jan, [facility] [place] [facility] [address] [id number] [place] [address]- 9133 26 Jan, 2011 [facility] [address] [id number] [place] [address] 24 Jan, 2011 [facility] [address] [id number] [place] [address]- 6309 14 Jan, 2011 [facility] [address] [id number] [place] [address]- 8132 19 Dec, 2010 [facility] [address] [id number] [place] [address]- 2979 Oct, [facility] [address] [id number] [place] [address]- 8219 August, [facility] [address] [id number] [place] [address]- 6611 29 Mar, 2010 [facility] [address] [id number] [place] [address]- 4560 27 Mar, 2010 [facility] [address] [id number] [place] [address]- 0808 16 Mar, 2010 [facility] [address] [id number] [place] [address]- 2142 15 Mar, 2010 [facility] [address] [id number] [place] [address]- 7874 15 Mar, 2010 [facility] [place] [facility] [address] [id number] [place] [address]- 5171 08 Mar, 2010 [facility] [place] [facility] [address] [id number] [place] [address]- 8874 03 Mar, 2010 [facility] [place] [facility] [address] [id number] [place] [address]- 1611 24 Feb, 2010 [facility] [place] [facility] [address] [id number] [place] [address]- 8454 24 Feb, 2010 [facility] [place] [facility] [address] [id number], [place] [address]- 0378 15 Feb, 2010 [facility] [place] [facility] [address] [id number] [place] [address]- 3487 19 Jan, 2010 [facility] [place] [facility] [address] [id number], [place] [address]- 8622 Jan, [facility] [place] [facility] [address] [id number] [place] [address]- 8160 Jan, [facility] [place] [facility] [address] [id number], [place] [address]- 7556 Nov, [facility] [place] [facility] [address] [id number] [place] [address]- 8196 Sep, [facility] [place] [facility] [address] [id number], [place] [address]- 9248 August, [facility] [place] [facility] [address] [id number], [place] [address]- 6350 30 Mar, 2009 [facility] [place] [facility] [address] [id number], [place] [address]- 2483 Mar, [facility] [place] [facility] [address] [id number], [place] [address]- 1630 17 Feb, 2009 [facility] [place] [facility] [address] [id number], [place] [address]- 6545 Feb, [facility] [place] [facility] [address] [id number], [place] [address]- 2545 10 Feb, 2009 [facility] [place] [facility] [address] [id number], [place] [address]- 9825 10 Feb, 2009 [facility] [place] [facility] [address] [id number], [place] [address]- 0606 06 Feb, 2009 [facility] [place] [facility] [address] [id number], [place] [address]- 8631 27 Jan, 2009 [facility] [place] [facility] [address] [id number], [place] [address]- 8883 Jan, [facility] [place] [facility] [address] [id number], [place] [address]- 295[address] Jan, [facility] [address] [id number], [place] [address]- 8535 Jan, [facility] [id number], [place] [address]- 9660 Nov, [facility] [id number], [place] [address]- 8373 Sep, [facility] [id number], [place] [address]- 5070 August, [facility] [id number] [place] [address]- [address] Jul, [facility] [id number], [place] [address]- 6805 May, IMMUNIZATIONS No Known Immunizations SOCIAL HISTORY Never Assessed REASON FOR VISIT Requests return call/CCM note PLAN OF CARE VITAL SIGNS MEDICATIONS [...] Knee Surgery 07/16/17 Hospitalization History [facility] [place]- left hand/wrist swelling 10/09/2017
[2018-01-01 12:15] LABS: BILIRUBIN,URINE NEGATIVE (NEGATIVE); CLARITY,URINE CLEAR; COLOR,URINE YELLOW; GLUCOSE, URINE (UA) 4+ (NEGATIVE); KETONES,URINE NEGATIVE (NEGATIVE); LEUKOCYTE ESTERASE ,URINE NEGATIVE (NEGATIVE); NITRITE,URINE NEGATIVE (NEGATIVE); PH,URINE 6.5 (5-9); PROTEIN,URINE NEGATIVE (NEGATIVE); UROBILINOGEN,URINE NORMAL (NORMAL)
--- OUTSIDE RECORDS SUMMARY | 2018-01-01 12:15 | XMS REPORT ---
Author Author PATRICK GALAVIZ Organization [facility] Address [address] [place] [address] Care Team Providers Care Occupational Hygienist Name Role Phone PATRICK GALAVIZ Unavailable PROBLEMS Type Condition ICD9-CM Code LKT71-BL Code Onset Dates Condition Status SNOMED Code Problem History of common bile duct surgery Z98.89 Active 227552034 Problem Barretts esophagus K22.70 Active 922968255 Problem 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 Active 91580156 Problem Colon polyp K63.5 Active 84299204 Problem Bilateral low back pain without sciatica M54.5 Active 797854160 Problem Screening breast examination Z12.39 Active 481706799 Problem Postmenopausal Z78.0 Active 54551172 Problem Osteopenia M85.80 Active 102677320 Problem Cigarette nicotine dependence without complication F17.210 Active 48153187 Problem Type 2 diabetes mellitus with diabetic peripheral angiopathy without gangrene E11.51 Active 320501780 Problem Vascular dementia without behavioral disturbance F01.50 Active 10617057305290920 Problem Unspecified atherosclerosis of [place] arteries of extremities, unspecified extremity I70.209 Active 482884212904761 Problem Arthritis M19.90 Active 7811844 Problem Chronic atrial fibrillation I48.2 Active 445259884 Problem Chronic obstructive pulmonary disease with acute lower respiratory infection J44.0 Active 425208587 Problem Other chronic pancreatitis K86.1 Active 304340149 Problem Stress incontinence of urine N39.3 Active 45507545 Problem Controlled type 2 diabetes mellitus without complication, without long -term current use of insulin E11.9 Active 607378211 Problem Unspecified psychosis F29 Active 07735994 Problem Xeroderma Q80.9 Active 86276095 Problem COPD (chronic obstructive pulmonary disease) J44.9 Active 38550378 Problem Dementia without behavioral disturbance, unspecified dementia type F03.90 Active 67426744 Problem Gastroparesis K31.84 Active 193251154 Problem Type 2 diabetes mellitus with diabetic neuropathy, without long-term current use of insulin E11.40 Active 51942676 Problem Osteoporosis M81.0 Active 64597209 Problem Atherosclerosis of [place] artery of both lower extremities with intermittent claudication I70.213 Active 071186600811798 Problem Hyperlipidemia E78.5 Active 48641105 Problem Diabetic polyneuropathy associated with type 2 diabetes mellitus E11.42 Active 70423728 Problem Essential tremor G25.0 Active 98890080 Problem 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.118 Active 9677548893697 Problem Generalized anxiety disorder F41.1 Active 778621648 Problem Gastroesophageal reflux disease, esophagitis presence not specified K21.9 Active 768777812 Problem Coronary artery disease involving [place] coronary artery of [place] 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 I25.118 Active 8013192085482 Problem Postconcussion syndrome F07.81 Active 14272057 Problem Chronic pain syndrome G89.4 Active 833521353 Problem Migraine without aura and without status migrainosus, not intractable G43.009 Active 166701192 Problem Paroxysmal atrial fibrillation I48.0 Active 452329511 Problem Migraine without aura and with status migrainosus, not intractable G43.001 Active 700163109 Problem Cervicalgia M54.2 Active 5978731320223 Problem Acute exacerbation of chronic obstructive pulmonary disease (COPD) J44.1 Active 746950327 Problem Major depressive disorder, recurrent episode, moderate F33.1 Active 888358524 Problem Crohn''s disease without complication, unspecified gastrointestinal tract location K50.90 Active 10109714 Problem Chronic fatigue R53.82 Active 20000678 Problem Bipolar affective disorder, currently depressed, moderate F31.32 Active 606897477 ALLERGIES No Information ENCOUNTERS Encounter Location Date Diagnosis [facility] [address] [id number] [address] Nov, [facility] [id number] [address] Nov, [facility] [id number] [address] Oct, [facility] [id number] [address] Oct, Bipolar affective disorder, currently depressed, moderate F31.32 ; Vascular dementia without behavioral disturbance F01.50 and Generalized anxiety disorder F41.1 [facility] [id number] [address] Oct, [facility] [address], [place] [address] Oct, [facility] [id number] [place] [address] 53072- 4648 Oct, Edema of both legs R60.0 [facility] [id number] [place] [address] 45649- 6821 Oct, [facility] [id number] [place] [address] 11478- 0602 Sep, [facility] [id number] [place] [address] 11831- 5263 Sep, [facility] [id number] [place] [address] 14713- 1803 Sep, [facility] [address] [place] [address] 65575- 7938 Sep, Encounter for well woman exam with routine gynecological exam Z01.419 ; Screening for STDs (sexually transmitted diseases) Z11.3 ; Screening breast examination Z12.31 and Overweight (BMI 25.0-29.9) E66.3 [facility] [address], [place] [address] Sep, [facility] [address] [address] Sep, [facility] [id number] [address] 9853 Sep, [facility] [address] [address] 4[address] August, [facility] [id number] [place] [address] 61751- 7017 August, [facility] [id number] [place] [address] 27028- 0252 August, Type 2 diabetes mellitus with diabetic neuropathy, without long-term current use of insulin E11.40 and Sprain of right ankle, unspecified ligament, initial encounter S93.401A [facility] [id number] [place] [address] 44735- 0412 August, [facility] [id number] [place] [address] 49048- 9957 August, [facility] [id number] [place] [address] 37737- 0767 August, [facility] [id number] [place] [address] 15153- 1489 August, Gastroesophageal reflux disease, esophagitis presence not specified K21.9 [facility] [id number] [place] [address] 30757- 6020 August, [facility] [id number] [place] [address] 87247- 2014 August, [facility] [id number] [place] [address] 93636- 2470 August, [facility] [id number] [place] [address] 21120- 1595 August, Type 2 diabetes mellitus with diabetic neuropathy, without long-term current use of insulin E11.40 and Elevated liver enzymes R74.8 [facility] [id number] [place] [address] 43205- 8438 Jul, [facility] [id number] [place] [address] 41575- 2090 Jul, Cough R05 [facility] [id number] [place] [address] 60062- 0381 Jul, [facility] [id number] [place] [address] 19843- 4883 Jul, [facility] [id number] [place] [address] 73566- 5946 Jul, Bipolar affective disorder, currently depressed, moderate F31.32 ; Vascular dementia without behavioral disturbance F01.50 and Generalized anxiety disorder F41.1 [facility] [id number] [place] [address] 51186- 4822 Jul, [facility] [address] 18568- 1015 Jul, Type 2 diabetes mellitus with diabetic neuropathy, without long-term current use of insulin E11.40 and Elevated liver enzymes R74.8 [place] [address] 19729- 6882 Jul, [facility] [id number] [place] [address] 95972- 0216 Jul, [facility] [address] 10843- 5440 Jul, [facility] [id number] [place] [address] 15759- 3507 Jul, Post-menopausal Z78.0 [facility] [address] 71134- 3498 Jul, Stress incontinence of urine N39.3 [facility] [id number] [place] [address] 76843- 9238 Jul, [facility] [id number] [place] [address] 54590- 7307 Jul, [facility] [id number] [place] [address] 92647- 5646 Jul, Stress incontinence of urine N39.3 and Cough R05 [facility] [id number] [place] [address] 67221- 9711 Jul, [facility] [id number] [place] [address] 40083- 8678 Jul, [place] [address], [place] [address] 2546 Jul, [facility] [id number] [place] [address] 33479 2546 Jul, Gastroesophageal reflux disease, esophagitis presence not specified K21.9 [facility] [address], [place] [address] 2548 Jun, Diabetic polyneuropathy associated with type 2 diabetes mellitus E11.42 [facility] [id number] [place] [address] 59388 254 Jun, Diabetic polyneuropathy associated with type 2 diabetes mellitus E11.42 ; Coronary artery disease involving [place] coronary artery of [place] 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 I25.118 and Paroxysmal atrial fibrillation I48.0 [facility] [id number] [place] [address] 51712- 7772 Jun, [facility] [id number] [place] [address] 62461 2542 Jun, [facility] [id number] [place] [address] 46229 2546 Jun, Gastroenteritis K52.9 [facility] [id number] [place] [address] 37420 2546 Jun, Gastroenteritis K52.9 [facility] [address], [place] [address] 2548 Jun, [facility] [id number] [address] 2546 Jun, [facility] [address], [place] [address] 2542 Jun, Sprain of right ankle, unspecified ligament, initial encounter S93.401A ; Type 2 diabetes mellitus with diabetic neuropathy, without long-term current use of insulin E11.40 ; Atherosclerosis of [place] artery of both lower extremities with intermittent claudication I70.213 ; 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.118 ; Chronic atrial fibrillation I48.2 and Crohn''s disease without complication, unspecified gastrointestinal tract location K50.90 [facility] [id number] [place] [address] 19331 -3697 17 Jun, 2017 Cough R05 and Chronic obstructive pulmonary disease with acute lower respiratory infection J44.0 [facility] [id number] [place] [address] 76648- 0621 Jun, [facility] [address] 46071- 4774 Jun, Coughing R05 ; Unspecified atherosclerosis of [place] arteries of extremities, unspecified extremity I70.209 ; Type 2 diabetes mellitus with diabetic peripheral angiopathy without gangrene E11.51 ; Crohn''s disease without complication, unspecified gastrointestinal tract location K50.90 ; Other chronic pancreatitis K86.1 and Chronic atrial fibrillation I48.2 [facility] [id number] [place] [address] 52323 -0305 Jun, [place] [id number] [place] [address] 18795- 8665 Jun, Bipolar affective disorder, currently depressed, moderate F31.32 ; Vascular dementia without behavioral disturbance F01.50 and Generalized anxiety disorder F41.1 [place] [id number] [place] [address] 30624- 3943 May, Generalized anxiety disorder F41.1 [place] [id number] [place] [address] 62783- 7646 May, [place] [id number] [place] [address] 95083- 6690 May, [place] [id number] [place] [address] 93276- 8648 May, Coughing R05 [place] [id number] [place] [address] 53400- 0745 May, [place] [address] [place] [address]- 9426 May, Bipolar affective disorder, currently depressed, moderate F31.32 ; Vascular dementia without behavioral disturbance F01.50 and Generalized anxiety disorder F41.1 [facility] [id number] [place] [address] 61066- 8698 Apr, Generalized anxiety disorder F41.1 [place] [address] 24744- 7195 Apr, [place] [address] 93686- 1397 Apr, Vascular dementia without behavioral disturbance F01.50 ; Generalized anxiety disorder F41.1 and Bipolar affective disorder, currently depressed, moderate F31.32 [place] [id number] [place] [address] 39314- 1240 Apr, Generalized anxiety disorder F41.1 [facility] [address] 93994 -8363 Apr, Cough R05 and Acute exacerbation of chronic obstructive pulmonary disease (COPD) J44.1 [place] [address] 09361- 3382 Apr, [facility] [id number] [place] [address] 39741 -6350 Mar, Cough R05 and Cigarette nicotine dependence without complication F17.210 [place] [id number] [place] [address] 44938- 3371 Mar, [place] [id number] [place] [address] 42352- 3958 Feb, Generalized anxiety disorder F41.1 ; Major depressive disorder, recurrent episode, moderate F33.1 ; Vascular dementia without behavioral disturbance F01.50 and Unspecified psychosis F29 [place] [id number] [place] [address] 37402- 0707 Feb, [place] [address] 70344- 3606 Feb, [place] [id number] [place] [address] 48177- 2894 Feb, Generalized anxiety disorder F41.1 [place] [id number] [place] [address] 70820- 4746 Feb, Generalized anxiety disorder F41.1 [place] [id number] [place] [address] 92786- 5496 Feb, Dizziness R42 ; Chronic fatigue R53.82 ; Postconcussion syndrome F07.81 ; Fall, initial encounter W19.XXXA and Disorientation R41.0 [place] [id number] [place] [address] 32800- 0892 Feb, Postconcussion syndrome F07.81 ; Injury of head, initial encounter S09.90XA ; Fall, initial encounter W19.XXXA ; Disorientation R41.0 and Acute cystitis with hematuria N30.01 [place] [id number] [place] [address] 70901- 7805 Jan, Gastroesophageal reflux disease, esophagitis presence not specified K21.9 ; Post-menopausal Z78.0 and Migraine without aura and without status migrainosus, not intractable G43.009 [place] [id number] [place] [address] 06889- 0234 Jan, [place] [id number] [place] [address] 39415- 8119 Jan, Generalized anxiety disorder F41.1 ; Major depressive disorder, recurrent episode, moderate F33.1 ; Vascular dementia without behavioral disturbance F01.50 and Unspecified psychosis F29 [place] [id number] [place] [address] 62349- 8061 Jan, Pneumonia of left lower lobe due to infectious organism J18.1 [place] [id number] [place] [address] 39140- 9702 Jan, Migraine without aura and with status migrainosus, not intractable G43.001 [facility] [address] [place] [address] 57006 -1742 04 Jan, 2017 Migraine without aura and without status migrainosus, not intractable G43.009 [facility] [id number] [place] [address] 49842- 9427 19 Dec, 2016 Hematoma T14.8 [facility] [id number] [place] [address] 39959- 4984 12 Dec, 2016 [facility] [id number] [place] [address] 10599 -6023 Nov, Fatigue, unspecified type R53.83 [place] [id number] [place] [address] 46216- 5313 Nov, Scabies B86 and Coronary artery disease involving [place] coronary artery of [place] 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 I25.118 [place] [id number] [place] [address] 71698- 9358 Nov, [facility] [id number] [place] [address] 39226- 2747 Nov, [place] [id number] [place] [address] 05459- 9709 Oct, [facility] [id number] [place] [address] 92478- 4908 Oct, Generalized anxiety disorder F41.1 and Major depressive disorder, recurrent episode, moderate F33.1 [facility] [address] [place] [address] 49296- 3137 Oct, Cramp of both lower extremities R25.2 [place] [id number] [place] [address] 98551- 2007 Oct, Leg cramps R25.2 [place] [id number] [place] [address] 28544- 5699 Oct, Chronic pain syndrome G89.4 [place] [address], [place] [address]- 6213 17 Oct, 2016 [facility] [id number] [place] [address] 45694- 7260 14 Oct, 2016 [facility] [address] [place] [address] 12687- 2113 11 Oct, 2016 Routine gynecological examination Z01.419 and Screening for breast cancer Z12.31 [place] [id number] [place] [address] 99672- 2252 28 Sep, 2016 Diarrhea R19.7 [place] [id number] [place] [address] 28309- 0004 26 Sep, 2016 Back pain M54.9 [place] [id number] [place] [address] 37592- 1393 12 Sep, 2016 [facility] [id number] [place] [address] 51602- 0089 Sep, [facility] [id number] [place] [address] 20417 -9257 August, Xeroderma Q80.9 [place] [id number] [place] [address] 06331- 4906 August, Dementia without behavioral disturbance, unspecified dementia type F03.90 [place] [id number] [place] [address] 00239- 6369 August, Chronic pain syndrome G89.4 [facility] [id number] [place] [address] 51757- 7874 August, [facility] [id number] [place] [address] 77437- 4181 August, Hyperlipidemia E78.5 ; Other fatigue R53.83 and Other specified hypotension I95.89 [facility] [address], [place] [address] -[address]21 August, Dysuria R30.0 ; Other fatigue R53.83 and Other specified hypotension I95.89 [facility] [address] 88323- 0768 August, [place] [address] 06952- 7289 Jul, Pain in left knee M25.562 and Gastroenteritis K52.9 [place] [address] 30829- 9826 Jul, [facility] [address] 12492- 7011 Jul, Diarrhea R19.7 [facility] [address] 32573 -1701 Jul, Spider bite, accidental or unintentional, initial encounter T63.301A [place] [address] 49847- 7133 Jul, Primary osteoarthritis of right knee M17.11 and Arthritis M19.90 [place] [address] 03084- 7299 Jul, Generalized anxiety disorder F41.1 and Major depressive disorder, recurrent episode, moderate F33.1 [place] [id number] [place] [address] 40522- 4047 Jul, Type 2 diabetes mellitus with diabetic polyneuropathy E11.42 and Temporal headache R51 [place] [address] 89087- 5474 Jul, Back pain M54.9 [facility] [id number] [place] [address] 76183- 3464 Jul, [place] [address] 11469- 2928 Jul, [facility] [address] 08456- 6969 Jun, Nausea R11.0 [facility] [address] 53664 -4667 Jun, Acute suppurative otitis media of both ears without spontaneous rupture of tympanic membranes, recurrence not specified H66.003 and COPD exacerbation J44.1 [facility] [address] 05779- 8650 Jun, Generalized anxiety disorder F41.1 [place] [address] 99285- 4106 16 Jun, 2016 [facility] [address] 60044 -3760 Jun, [facility] [place] [address] 71646 -0796 Jun, Shortness of breath R06.02 and COPD exacerbation J44.1 [place] [address] 69659- 0958 Jun, Eczema, unspecified type L30.9 [place] [address] 25916- 9973 Jun, [place] [address] 32823- 5323 May, [place] [address] 49383- 9062 May, Muscle cramping R25.2 [place] [address] 20950- 1699 May, [place] [address] 93817- 1583 Apr, Diarrhea R19.7 [place] [address] 52785- 7241 Apr, [place] [address] 07390- 3692 Apr, Chronic pain syndrome G89.4 [place] [address] 98724- 5245 16 Apr, 2016 Cramp of both lower extremities R25.2 and Vascular dementia without behavioral disturbance F01.50 [place] [address] 16693- 8762 Apr, Type 2 diabetes mellitus with diabetic polyneuropathy E11.42 and Cigarette nicotine dependence without complication F17.210 [place] [address] 90893- 6445 Mar, Generalized anxiety disorder F41.1 [place] [address] 30637- 1253 Feb, Generalized anxiety disorder F41.1 and Major depressive disorder, recurrent episode, moderate F33.1 [place] [address] 87406- 7402 Feb, [facility] [address] 61433 -7634 Feb, Dysuria R30.0 and Acute cystitis with hematuria N30.01 [place] [address] 90991- 9575 Jan, [place] [address] 17119- 3364 Jan, [place] [address] 99692- 0950 Jan, [place] [address] 68858- 0519 Jan, [facility] [address] 62320 -4166 Jan, Wasp sting, accidental or unintentional, initial encounter T63.461A [place] [address] 66417- 9545 06 Jan, 2016 Encounter for immunization Z23 [place] [address] [place] [address]- 9833 Jan, [facility] [id number] [place] [address] 47995- 4015 Jan, [facility] [id number] [place] [address] [address]- [address] 28 Dec, 2015 Generalized anxiety disorder F41.1 and Major depressive disorder, recurrent episode, moderate F33.1 [facility] [id number] [place] [address] 37532- 8971 21 Dec, 2015 Routine gynecological examination Z01.419 ; Postmenopausal Z78.0 ; Screening breast examination Z12.39 ; Osteopenia M85.80 and Breast cancer screening Z12.39 [facility] [id number] [place] [address] 44287- 5795 20 Dec, 2015 [facility] [id number] [place] [address] 49032- 7330 19 Dec, 2015 [facility] [id number] [place] [address] 28364- 3556 16 Dec, 2015 [facility] [id number] [place] [address] 65607- 5113 16 Dec, 2015 [facility] [id number] [place] [address] 90169- 5310 14 Dec, 2015 [facility] [address] [address] 5[address] 06 Dec, 2015 [facility] [id number] [place] [address] 16776- 2312 30 Nov, 2015 [facility] [address], [place] [address] Nov, Cough R05 ; Other viral agents as the cause of diseases classified elsewhere B97.89 and Acute upper respiratory infection, unspecified J06.9 [facility] [address], [place] [address] Nov, [facility] [id number] [address] 0894 Nov, [facility] [address], [place] [address]- 3375 Nov, [facility] [address], [place] [address]- 8008 Nov, [facility] [id number] [place] [address] 89639- 4635 Nov, [facility] [id number] [place] [address] 98761- 8196 Oct, [facility] [id number] [place] [address] 86059- 3605 Oct, [facility] [id number] [place] [address] 20328- 9641 Oct, [facility] [id number] [place] [address] 33404- 6998 Oct, Chronic pain syndrome G89.4 [facility] [address], [place] [address] 7494 Sep, Generalized anxiety disorder F41.1 and Major depressive disorder, recurrent episode, moderate F33.1 [facility] [address], [place] [address]- 6907 Sep, [facility] [address], [place] [address]- 4910 Sep, [facility] [address], [place] [address]- 0594 14 Sep, 2015 Generalized anxiety disorder F41.1 [facility] [id number] [place] [address] 51980- 5310 13 Sep, 2015 Cramp of both lower extremities R25.2 and Cervicalgia M54.2 [facility] [address], [place] [address]- 5294 06 Sep, 2015 Generalized anxiety disorder F41.1 [facility] [address], [place] [address]- 8391 Sep, [facility] [id number] [place] [address] 47051 -6912 August, Rash R21 ; Itching L29.9 and Allergic response, subsequent encounter T78.40XD [facility] [id number] [place] [address] 14413- 8482 August, Primary insomnia F51.01 [facility] [id number] [place] [address] 02741 -1178 August, Rash R21 ; Itching L29.9 and Allergic response, initial encounter T78.40XA [facility] [id number] [place] [address] 89733- 1381 August, [facility] [id number] [place] [address] 44242- 7256 August, Cramp of both lower extremities R25.2 [facility] [id number] [place] [address] 65567- 3182 August, Back pain M54.9 [facility] [id number] [place] [address] 73759- 3759 August, [facility] [id number] [place] [address] 00475- 0709 August, [facility] [id number] [place] [address] 82392 -3311 August, Cramp of both lower extremities R25.2 [facility] [id number] [place] [address] 15578- 4262 August, [facility] [id number] [place] [address] 76980- 5291 August, Syncope R55 ; Paroxysmal atrial fibrillation I48.0 ; Dementia without behavioral disturbance, unspecified dementia type F03.90 and Chronic pain syndrome G89.4 [facility] [id number] [place] [address] 27125- 2623 August, Type 2 diabetes mellitus with diabetic polyneuropathy E11.42 and Syncope R55 [facility] [id number] [place] [address] 25504- 5783 Jul, [facility] [id number] [place] [address] 60732- 4546 Jul, [facility] [id number] [place] [address] 16037- 1648 Jul, [facility] [id number] [place] [address] 68384- 4998 Jul, [facility] [id number] [place] [address] 96772- 5656 Jul, [facility] [id number] [place] [address] 00235- 5731 Jul, UTI (urinary tract infection) N39.0 [facility] [id number] [place] [address] 81887- 8990 Jul, [facility] [id number] [place] [address] 16738- 7934 Jul, Major depressive disorder, recurrent episode, moderate F33.1 and Generalized anxiety disorder F41.1 [facility] [id number] [place] [address] 65551- 2578 Jul, Generalized anxiety disorder F41.1 [facility] [id number] [place] [address] 66625- 2480 Jul, Diarrhea R19.7 [facility] [id number] [place] [address] 73794- 1370 Jul, [facility] [address], [place] [address]- 4817 Jun, [facility] [id number] [place] [address] 29139- 0338 21 Mar, 2016 Eczema L30.9 [facility] [address], [place] [address]- 4465 Jun, [facility] [id number] [place] [address] 07839- 6426 Jun, COPD (chronic obstructive pulmonary disease) J44.9 [facility] [address] [address]- 5506 Jun, [facility] [id number] [place] [address] 50885 2545 Jun, Major depressive disorder, recurrent episode, moderate F33.1 and Generalized anxiety disorder F41.1 [facility] [id number] [place] [address] 24767- 7146 May, [facility] [id number] [place] [address] 99286- 0015 May, UTI (urinary tract infection) N39.0 [facility] [address] [address]- 8278 May, [facility] [id number] [place] [address] 46217- 8569 May, [facility] [address], [place] [address]- 4422 May, [facility] [address], [place] [address]- 7876 May, [facility] [address], [place] [address]- 2540 Apr, Major depressive disorder, recurrent episode, moderate F33.1 and Generalized anxiety disorder F41.1 [facility] [address], [place] [address]- 9112 Apr, COPD (chronic obstructive pulmonary disease) J44.9 [facility] [address], [place] [address]- 4286 Apr, [facility] [address], [place] [address]- 6586 Apr, Atrial flutter I48.92 [facility] [id number] [place] [address] 45393- 0392 Apr, [facility] [address], [place] [address]- 1528 Apr, [facility] [id number] [place] [address] 08453- 1926 Mar, [facility] [id number] [place] [address] 50520- 1200 Mar, [facility] [id number] [place] [address] 57330- 3043 Mar, [facility] [id number] [place] [address] 92704- 0061 Mar, Hyperlipidemia E78.5 ; Type 2 diabetes mellitus with diabetic polyneuropathy E11.42 ; Major depressive disorder, recurrent episode, moderate F33.1 and Chronic pain syndrome G89.4 [facility] [id number] [place] [address] 54621- 7972 Mar, [facility] [address], [place] [address]- 3340 Mar, [facility] [address], [place] [address]- 5843 Mar, [facility] [address], [place] [address]- 6258 Mar, [facility] [id number] [place] [address] 30532- 5345 Feb, COPD (chronic obstructive pulmonary disease) J44.9 and Back pain M54.9 [facility] [address], [place] [address]- 4755 Feb, [facility] [id number] [place] [address] 64947- 4213 Feb, [facility] [address], [place] [address]- 0247 Feb, [facility] [id number] [place] [address] 74961- 6312 Feb, [facility] [id number] [place] [address] 13747- 1238 Feb, [facility] [id number] [place] [address] 26219- 0302 Feb, [facility] [id number] [place] [address] 60995- 8199 Feb, [facility] [id number] [place] [address] 16923- 1834 Feb, [facility] [id number] [place] [address] 32623- 3331 Feb, Diabetes E11.9 ; Back pain M54.9 and COPD (chronic obstructive pulmonary disease) J44.9 [facility] [id number] [place] [address] 18465- 9482 Jan, [facility] [id number] [place] [address] 43796- 0093 Jan, Major depression, recurrent F33.9 and Generalized anxiety disorder F41.1 [facility] [id number] [place] [address] 83056- 6487 Jan, Chronic pain G89.29 [facility] [id number], [place] [address]- 4658 Jan, [facility] [id number] [place] [address] 58405- 9023 Jan, [facility] [id number] [place] [address] 96057- 2698 Jan, [facility] [id number] [place] [address] 69080- 5353 Jan, [facility] [id number] [place] [address] 61451- 4591 Jan, Nicotine dependence F17.200 [facility] [id number] [place] [address] 41386- 1198 Jan, Nicotine dependence F17.200 and Back pain M54.9 [facility] [id number] [place] [address] 44757- 4712 Jan, [facility] [id number] [place] [address] 44035- 9514 28 Dec, 2014 [facility] [id number] [place] [address] 59309- 0963 25 Dec, 2014 Anxiety, generalized 300.02 and Major depression, recurrent 296.30 [facility] [id number] [place] [address] 86402- 5095 24 Dec, 2014 [facility] [id number] [place] [address] 17127- 8155 21 Dec, 2014 [facility] [id number] [place] [address] 85368- 8668 17 Dec, 2014 [facility] [id number] [place] [address] 78329- 1207 15 Dec, 2014 [facility] [id number] [place] [address] 45694- 2001 14 Dec, 2014 [facility] [id number] [place] [address] 29327- 9656 11 Dec, 2014 [facility] [id number] [place] [address] 05499- 5337 10 Dec, 2014 [facility] [id number] [place] [address] 61740- 5667 08 Dec, 2014 Skin tear 879.8 [facility] [id number] [place] [address] 06904- 4942 08 Dec, 2014 Routine gynecological examination V72.31 ; Breast cancer screening V76.10 and Family history of breast cancer in first degree relative V16.3 [facility] [id number] [place] [address] 56950- 9692 Dec, [facility] [id number] [place] [address] 05158- 6164 Dec, [facility] [id number] [place] [address] 22845- 7751 Nov, [facility] [id number] [place] [address] 53425- 7744 Nov, [facility] [id number] [place] [address] 09800- 3746 Nov, Poor balance 781.99 and Vascular dementia, uncomplicated 290.40 [facility] [id number] [place] [address] 96459- 7137 Nov, [facility] [id number] [place] [address] 46470- 3598 Nov, Major depression, recurrent 296.30 and Anxiety, generalized 300.02 [facility] [id number] [place] [address] 55483- 8973 Nov, [facility] [id number] [place] [address] 12374- 2099 Nov, [facility] [id number] [place] [address] 88309- 4748 Nov, [facility] [id number] [place] [address] 51130- 2189 Nov, [facility] [id number] [place] [address] 19536- 8934 Nov, Vascular dementia, uncomplicated 290.40 and Lumbago 724.2 [facility] [id number] [place] [address] 10856- 7439 Nov, [facility] [id number] [place] [address] 53734- 9232 Nov, [facility] [address], [place] [address]- 8782 Nov, [facility] [address], [place] [address]- 7875 Oct, [facility] [address], [place] [address]- 0322 Oct, [facility] [id number] [address]- 9950 Oct, [facility] [address], [place] [address]- 8923 Oct, COPD (chronic obstructive pulmonary disease) 496 and Hyperlipidemia 272.4 [facility] [address], [place] [address]- 9247 Oct, Major depression, recurrent 296.30 and Anxiety, generalized 300.02 [facility] [address], [place] [address]- 0699 Oct, [facility] [address], [place] [address]- 6608 Oct, [facility] [address], [place] [address]- 5019 Oct, [facility] [address], [place] [address]- 7343 Sep, Lumbago 724.2 and Anxiety state, unspecified 300.00 [facility] [address], [place] [address]- 1244 Sep, [facility] [address], [place] [address]- 4192 Sep, [facility] [address] [address]- 3000 August, [facility] [id number] [address]- 4961 August, Major depression, recurrent 296.30 ; Anxiety, generalized 300.02 and No condition on [place] II V71.09 [facility] [address] [place] [address]- 69[address] August, [facility] [id number] [place] [address]- 4126 August, [facility] [address] [place] [address]- 4163 Jul, [facility] [address] [facility] [id number] [place] [address]- 3633 Jul, [facility] [id number] [place] [address], [place] 8924 Jul, [facility] [id number] [place] [address]- 9318 Jun, [facility] [address] [place] [address]- 5348 Jun, [facility] [id number] [address]- 7433 Jun, [facility] [address] [place] [address]- 2843 Jun, [facility] [id number] [place] [address]- 5957 Jun, [facility] [address] [place] [address]- 0028 Jun, [facility] [id number] [address]- 3723 Jun, [facility] [address] [place] [address]- 0005 17 Jun, 2014 [facility] [id number] [address]- 2856 Jun, [facility] [address], [place] [address]- 7186 Jun, [facility] [place] [facility] [address] [id number] [place] [address]- 1623 10 Jun, 2014 [facility] [place] [facility] [address] [id number] [place] [address]- 0437 10 Jun, 2014 [facility] [place] [facility] [address] [id number] [place] [address]- 4951 07 Jun, 2014 [facility] [place] [facility] [address] [id number] [place] [address]- 6930 07 Jun, 2014 [facility] [place] [facility] [address] [id number] [place] [address]- 5650 Jun, [facility] [place] [facility] [address] [id number] [place] [address]- 3225 Jun, 2014 [facility] [place] [facility] [address] [facility] [id number] [place] [address]- 4481 May, 2014 [facility] [place] [facility] [address] [facility] [id number] [place] [address]- 9264 May, 2014 [facility] [place] [facility] [address] [id number] [place] [address]- 0677 20 May, 2014 [facility] [place] [facility] [address] [facility] [id number] [place] [address]- 7945 May, 2014 [facility] [place] [facility] [address] [facility] [id number] [place] [address]- 1029 May, 2014 [facility] [place] [facility] [address] [id number] [place] [address]- 4417 May, 2014 [facility] [place] [facility] [address] [id number] [place] [address]- 7179 19 May, 2014 [facility] [place] [facility] [address] [facility] [id number] [place] [address]- 3901 12 May, 2014 [facility] [place] [facility] [address] [facility] [id number] [place] [address]- 3193 11 May, 2014 [facility] [place] [facility] [address] [id number] [place] [address]- 0279 May, 2014 [facility] [place] [facility] [address] [id number] [place] [address]- 7872 May, 2014 [facility] [place] [facility] [address] [id number] [place] [address]- 0384 May, 2014 [facility] [place] [facility] [address] [id number] [place] [address]- 9736 May, 2014 [facility] [place] [facility] [address] [id number] [place] [address]- 8239 May, [facility] [place] [facility] [address] [id number] [place] [address]- 2607 Apr, [facility] [place] [facility] [address] [id number] [place] [address]- 5648 Apr, [facility] [place] [facility] [address] [id number] [place] [address]- 5023 Apr, [facility] [place] [facility] [address] [id number] [place] [address]- 7812 Apr, [facility] [place] [facility] [address] [id number] [place] [address]- 2990 Apr, [facility] [place] [facility] [address] [id number] [place] [address]- 4417 Apr, [facility] [place] [facility] [address] [id number], [place] [address]- 3335 Apr, [facility] [place] [facility] [address] [id number] [place] [address]- 1351 Apr, [facility] [place] [facility] [address] [id number] [place] [address]- 2513 Apr, [facility] [place] [facility] [address] [id number] [place] [address]- 9561 Apr, [facility] [place] [facility] [address] [id number] [place] [address] Apr, [facility] [place] [facility] [address] [id number] [place] [address] Apr, [facility] [place] [facility] [address] [id number] [place] [address] Mar, [facility] [place] [facility] [address] [id number] [place] [address] Mar, [facility] [place] [facility] [address] [id number] [place] [address] 30 Mar, 2014 [facility] [place] [facility] [address] [id number] [place] [address] 30 Mar, 2014 [facility] [place] [facility] [address] [id number] [place] [address] Mar, [facility] [place] [facility] [address] [id number] [place] [address] Mar, [facility] [place] [facility] [address] [id number] [place] [address] Mar, [facility] [place] [facility] [address] [id number] [place] [address] 19 Mar, 2014 [facility] [place] [facility] [address] [id number] [place] [address] 15 Mar, 2014 [facility] [place] [facility] [address] [id number] [place] [address] 15 Mar, 2014 [facility] [place] [facility] [address] [id number] [place] [address] 15 Mar, 2014 [facility] [place] [facility] [address] [id number] [place] [address] 15 Mar, 2014 [facility] [place] [facility] [address] [id number] [place] [address] 15 Mar, 2014 [facility] [place] [facility] [address] [id number] [place] [address] 15 Mar, 2014 [facility] [place] [facility] [address] [id number] [place] [address] Mar, [facility] [place] [facility] [address] [id number] [place] [address] Mar, [facility] [place] [facility] [address] [id number] [place] [address] Mar, [facility] [place] [facility] [address] [id number] [place] [address] Mar, [facility] [place] [facility] [address] [id number] [place] [address] Mar, [facility] [place] [facility] [address] [id number] [place] [address] Mar, [facility] [place] [facility] [address] [id number] [place] [address] Feb, [facility] [place] [facility] [address] [id number] [place] [address] Feb, [facility] [place] [facility] [address] [id number] [place] [address] Feb, [facility] [place] [facility] [address] [id number] [place] [address] Feb, [facility] [place] [facility] [address] [facility] [id number] [place] [address] Feb, [facility] [place] [facility] [address] [id number] [place] [address] Feb, [facility] [place] [facility] [address] [id number] [place] [address] Feb, [facility] [place] [facility] [address] [id number] [place] [address] Feb, [facility] [place] [facility] [address] [id number] [place] [address] Feb, [facility] [place] [facility] [address] [id number] [place] [address] Feb, [facility] [place] [facility] [address] [id number] [place] [address] 84[address] Feb, [facility] [place] [facility] [address] [id number] [place] [address]- 0189 Feb, [facility] [place] [facility] [address] [id number] [place] [address] 5977 Feb, [facility] [place] [facility] [address] [id number] [place] [address]- 0609 Feb, [facility] [place] [facility] [address] [id number] [place] [address]- 2778 Feb, [facility] [place] [facility] [address] [id number] [place] [address]- 3755 Feb, [facility] [place] [facility] [address] [id number] [place] [address]- 4616 Feb, [facility] [place] [facility] [address] [id number] [place] [address]- 48[address] Jan, [facility] [place] [facility] [address] [id number] [place] [address]- 5775 Jan, [facility] [place] [facility] [address] [id number], [place] [address] 58[address] Jan, [facility] [place] [facility] [address] [id number], [place] [address] Jan, [facility] [place] [facility] [address] [id number], [place] [address]- 5020 Jan, [facility] [place] [facility] [address] [id number] [place] [address]- 6279 Jan, [facility] [place] [facility] [address] [id number], [place] [address]- 6708 Jan, [facility] [place] [facility] [address] [id number][place] 2666 Jan, [facility] [place] [facility] [address] [id number], [place] [address]- 2351 Jan, [facility] [place] [facility] [address] [id number] [place] [address]- 6795 Jan, [facility] [place] [facility] [address] [id number] [place] [address]- 2590 Jan, [facility] [place] [facility] [address] [id number] [place] [address]- 8031 Dec, [facility] [place] [facility] [address] [id number] [place] [address]- 0907 Dec, [facility] [place] [facility] [address] [id number] [place] [address]- 3515 Nov, [facility] [place] [facility] [address] [id number] [place] [address]- 4720 Nov, [facility] [place] [facility] [address] [id number] [place] [address]- 7010 Nov, [facility] [place] [facility] [address] [id number] [place] [address]- 1427 Nov, [facility] [place] [facility] [address] [id number] [place] [address]- 9041 Nov, [facility] [place] [facility] [address] [id number] [place] [address]- 4022 Nov, [facility] [place] [facility] [address] [id number] [place] [address]- 2050 Nov, [facility] [place] [facility] [address] [id number] [place] [address]- 1039 Oct, [facility] [place] [facility] [address] [id number] [place] [address]- 2692 Oct, [facility] [place] [facility] [address] [id number] [place] [address]- 8508 Oct, [facility] [place] [facility] [address] [id number] [place] [address]- 8495 Oct, [facility] [place] [facility] [address] [id number] [place] [address]- 0720 30 Sep, 2013 [facility] [place] [facility] [address] [id number] [place] [address]- 7258 Sep, [facility] [place] [facility] [address] [id number] [place] [address]- 7550 Sep, [facility] [place] [facility] [address] [id number] [place] [address]- 3094 Sep, [facility] [place] [facility] [address] [id number] [place] [address]- 4576 Sep, [facility] [place] [facility] [address] [id number] [place] [address]- 9805 Sep, [facility] [place] [facility] [address] [id number] [place] [address]- 9773 Sep, [facility] [place] [facility] [address] [id number] [place] [address]- 1975 Sep, [facility] [place] [facility] [address] [id number] [place] [address]- 2319 Sep, [facility] [place] [facility] [address] [id number] [place] [address]- 6108 Sep, [facility] [place] [facility] [address] [id number] [place] [address]- 3409 Sep, [facility] [place] [facility] [address] [id number] [place] [address]- 5260 Sep, [facility] [place] [facility] [address] [id number] [place] [address]- 1075 Sep, [facility] [place] [facility] [address] [id number] [place] [address]- 1135 Sep, [facility] [place] [facility] [address] [id number] [place] [address]- 9779 August, [facility] [place] [facility] [address] [id number] [place] [address]- 2328 August, [facility] [address] [id number] [place] [address]- 5532 August, [facility] [place] [facility] [address] [id number] [place] [address]- 2986 August, [facility] [place] [facility] [address] [id number] [place] [address]- 1702 August, [facility] [place] [facility] [address] [id number] [place] [address]- 1819 August, [facility] [place] [facility] [address] [id number] [place] [address]- 4693 August, [facility] [place] [facility] [address] [id number] [place] [address]- 0945 August, [facility] [place] [facility] [address] [id number] [place] [address]- 9000 August, [facility] [place] [facility] [address] [id number] [place] [address]- 7481 August, [facility] [place] [facility] [address] [id number] [place] [address]- 8005 August, [facility] [place] [facility] [address] [id number] [place] [address]- 2726 August, [facility] [place] [facility] [address] [id number] [place] [address]- 9139 August, [facility] [place] [facility] [address] [id number] [place] [address]- 6261 August, [facility] [place] [facility] [address] [id number] [place] [address]- 4451 August, [facility] [place] [facility] [address] [id number] [place] [address]- 0013 August, [facility] [place] [facility] [address] [id number] [place] [address]- 5539 August, [facility] [place] [facility] [address] [id number] [place] [address]- 8144 August, [facility] [place] [facility] [address] [id number] [place] [address]- 0030 August, [facility] [place] [facility] [address] [id number] [place] [address]- 1079 Jul, [facility] [place] [facility] [address] [id number] [place] [address]- 6441 Jul, [facility] [place] [facility] [address] [id number] [place] [address]- 5239 Jul, [facility] [place] [facility] [address] [id number] [place] [address]- 2291 Jul, [facility] [place] [facility] [address] [id number] [place] [address]- 1293 Jun, [facility] [place] [facility] [address] [id number] [place] [address]- 7672 Jun, [facility] [place] [facility] [address] [id number] [place] [address]- 4483 Jun, [facility] [place] [facility] [address] [id number] [place] [address]- 2218 24 Jun, 2013 [facility] [place] [facility] [address] [id number] [place] [address]- 7852 Jun, [facility] [place] [facility] [address] [id number] [place] [address]- 0865 Jun, [facility] [place] [facility] [address] [id number] [place] [address]- 6714 Jun, [facility] [place] [facility] [address] [id number] [place] [address]- 5493 Jun, [facility] [place] [facility] [address] [id number] [place] [address]- 9317 Jun, [facility] [place] [facility] [address] [id number] [place] [address]- 2387 Jun, [facility] [place] [facility] [address] [id number] [place] [address]- 2295 May, [facility] [place] [facility] [address] [id number] [place] [address]- 0456 May, [facility] [place] [facility] [address] [id number] [place] [address]- 1776 May, [facility] [place] [facility] [address] [id number] [place] [address] 2546 May, [facility] [place] [facility] [address] [id number] [place] [address] 2546 May, [facility] [place] [facility] [address] [id number] [place] [address]- 7936 May, [facility] [place] [facility] [address] [id number] [place] [address]- 5667 May, [facility] [place] [facility] [address] [id number] [place] [address]- 4790 May, [facility] [place] [facility] [address] [id number] [place] [address]- 2449 May, [facility] [place] [facility] [address] [facility] [id number] [place] [address]- 8700 May, [facility] [place] [facility] [address] [facility] [id number] [place] [address]- 2009 May, [facility] [place] [facility] [address] [id number] [place] [address]- 2546 17 May, 2013 [facility] [place] [facility] [address] [id number] [place] [address]- 2546 May, [facility] [place] [facility] [address] [id number] [place] [address]- 2546 May, [facility] [place] [facility] [address] [facility] [id number] [place] [address]- 2547 10 May, 2013 [facility] [place] [facility] [address] [id number] [place] [address]- 2546 07 May, 2013 [facility] [place] [facility] [address] [id number] [place] [address]- 5816 07 May, 2013 [facility] [place] [facility] [address] [id number] [place] [address]- 2546 Apr, [facility] [place] [facility] [address] [id number] [place] [address]- 9596 Apr, [facility] [place] [facility] [address] [id number] [place] [address]- 4106 Apr, [facility] [place] [facility] [address] [id number] [place] [address]- 1756 Apr, [facility] [place] [facility] [address] [id number] [place] [address]- 8373 Apr, [facility] [place] [facility] [address] [id number] [place] [address]- 1280 Apr, [facility] [place] [facility] [address] [id number] [place] [address]- 6421 Apr, [facility] [place] [facility] [address] [id number] [place] [address]- 2644 Mar, [facility] [place] [facility] [address] [id number] [place] [address]- 3966 Mar, [facility] [place] [facility] [address] [id number] [place] [address]- 1926 Mar, [facility] [place] [facility] [address] [id number] [place] [address]- 2541 Mar, [facility] [place] [facility] [address] [id number] [place] [address]- 6176 Mar, [facility] [place] [facility] [address] [id number] [place] [address]- 2546 Mar, [facility] [place] [facility] [address] [id number] [place] [address]- 9599 Mar, [facility] [address] [id number] [place] [address]- 7595 Mar, [facility] [place] [facility] [address] [id number] [place] [address]- 5546 Mar, [facility] [place] [facility] [address] [id number] [place] 2628 Mar, [facility] [place] [facility] [address] [id number] [place] [address]- 3140 Mar, [facility] [place] [facility] [address] [id number] [place] [address]- 8043 Feb, [facility] [place] [facility] [address] [id number] [place] [address]- 2706 Feb, [facility] [place] [facility] [address] [id number] [place] [address]- 5425 Feb, [facility] [place] [facility] [address] [id number], [place] [address]- 4483 20 Feb, 2013 [facility] [place] [facility] [address] [id number], [place] [address]- 0406 19 Feb, 2013 [facility] [place] [facility] [address] [id number], [place] [address]- 8741 19 Feb, 2013 [facility] [place] [facility] [address] [id number], [place] [address]- 6784 15 Feb, 2013 [facility] [place] [facility] [address] [id number], [place] [address]- 6512 14 Feb, 2013 [facility] [place] [facility] [address] [id number], [place] [address]- 1378 14 Feb, 2013 [facility] [place] [facility] [address] [id number], [place] [address]- 2716 13 Feb, 2013 [facility] [place] [facility] [address] [id number], [place] [address]- 3508 13 Feb, 2013 [facility] [place] [facility] [address] [id number] [place] [address]- 5773 12 Feb, 2013 [facility] [place] [facility] [address] [id number] [place] [address]- 6277 12 Feb, 2013 [facility] [place] [facility] [address] [id number] [place] [address]- 4201 Feb, [facility] [place] [facility] [address] [id number] [place] [address]- 6010 Feb, [facility] [place] [facility] [address] [id number] [place] [address]- 3492 Feb, [facility] [place] [facility] [address] [id number] [place] [address]- 8775 Jan, [facility] [place] [facility] [address] [id number] [place] [address]- 0009 Jan, [facility] [place] [facility] [address] [id number] [place] [address]- 4879 Jan, [facility] [place] [facility] [address] [id number] [place] [address]- 4713 Jan, [facility] [place] [facility] [address] [id number] [place] [address]- 7391 Jan, [facility] [place] [facility] [address] [id number] [place] [address]- 1078 Jan, [facility] [place] [facility] [address] [id number] [place] [address]- 6572 22 Jan, 2013 [facility] [place] [facility] [address] [id number] [place] [address]- 2547 10 Jan, 2013 [facility] [place] [facility] [address] [id number] [place] [address]- 0138 10 Jan, 2013 [facility] [place] [facility] [address] [id number] [place] [address]- 2541 27 Dec, 2012 [facility] [place] [facility] [address] [id number] [place] [address]- 9184 Dec, [facility] [place] [facility] [address] [id number] [place] [address]- 0749 Dec, [facility] [place] [facility] [address] [id number] [place] [address]- 7197 Dec, [facility] [place] [facility] [address] [id number] [place] [address]- 3066 04 Dec, 2012 [facility] [place] [facility] [address] [id number] [place] [address]- 5504 Dec, [facility] [place] [facility] [address] [id number] [place] [address]- 7566 Nov, [facility] [place] [facility] [address] [id number] [place] [address]- 0132 Nov, [facility] [place] [facility] [address] [id number] [place] [address]- 4365 Nov, [facility] [place] [facility] [address] [id number] [place] [address]- 6427 Nov, [facility] [place] [facility] [address] [id number] [place] [address]- 7582 Nov, [facility] [place] [facility] [address] [id number] [place] [address]- 0731 Nov, [facility] [place] [facility] [address] [id number] [place] [address]- 7878 Nov, [facility] [place] [facility] [address] [id number] [place] [address]- 1378 Nov, [facility] [place] [facility] [address] [id number] [place] [address]- 1378 Nov, [facility] [place] [facility] [address] [id number] [place] [address]- 3718 Nov, [facility] [place] [facility] [address] [id number] [place] [address]- 1400 Oct, [facility] [place] [facility] [address] [id number] [place] [address]- 6852 Oct, [facility] [place] [facility] [address] [id number] [place] [address]- 7684 Oct, [facility] [place] [facility] [address] [id number] [place] [address]- 2198 Oct, [facility] [place] [facility] [address] [id number] [place] [address]- 1901 Oct, [facility] [place] [facility] [address] [id number] [place] [address]- 7253 Oct, [facility] [place] [facility] [address] [id number] [place] [address]- 0096 Oct, [facility] [place] [facility] [address] [id number] [place] [address]- 4135 Oct, [facility] [place] [facility] [address] [id number] [place] [address]- 4083 Sep, [facility] [place] [facility] [address] [id number] [place] [address]- 6212 Sep, [facility] [place] [facility] [address] [id number] [place] [address]- 8557 Sep, [facility] [place] [facility] [address] [id number] [place] [address]- 3495 Sep, [facility] [place] [facility] [address] [id number] [place] [address]- 5104 Sep, [facility] [place] [facility] [address] [id number] [place] [address]- 7685 Sep, [facility] [place] [facility] [address] [id number] [place] [address]- 5847 Sep, [facility] [place] [facility] [address] [id number] [place] [address]- 2361 Sep, [facility] [place] [facility] [address] [id number] [place] [address]- 1547 August, [facility] [place] [facility] [address] [id number] [place] [address]- 8505 August, [facility] [place] [facility] [address] [id number] [place] [address]- 0107 August, [facility] [address] [id number] [place] [address]- 2556 August, [facility] [address] [id number] [place] [address]- 5266 August, [facility] [address] [id number] [place] [address]- 3880 Jul, [facility] [address] [id number] [place] [address]- 7289 Jul, [facility] [address] [id number] [place] [address]- 5603 Jul, [facility] [address] [id number] [place] [address]- 8260 Jul, [facility] [address] [id number] [place] [address]- 2964 Jul, [facility] [address] [id number] [place] [address]- 5037 Jun, [facility] [address] [id number] [place] [address]- 3427 18 Jun, 2012 [facility] [address] [id number] [place] [address]- 1480 15 Jun, 2012 [facility] [address] [id number] [place] [address]- 7614 14 Jun, 2012 [facility] [address] [id number] [place] [address]- 4496 12 Jun, 2012 [facility] [address] [id number] [place] [address]- 2546 08 Jun, 2012 [facility] [address] [id number] [place] [address]- 3220 Jun, [facility] [address] [id number] [place] [address]- 3291 Jun, [facility] [address] [id number] [place] [address]- 6506 Jun, [facility] [address] [id number] [place] [address]- 1674 May, [facility] [address] [id number] [place] [address]- 8576 May, [facility] [address] [id number] [place] [address]- 9014 May, [facility] [address] [id number] [place] [address] May, [facility] [address] [id number] [place] [address] Apr, [facility] [address] [id number], [place] [address] Apr, [facility] [address] [id number], [place] [address] Apr, [facility] [address] [facility] [id number], [place] [address] Apr, [facility] [address] [id number], [place] [address] Apr, [facility] [address] [id number], [place] [address] Apr, [facility] [address] [id number], [place] [address] Apr, [facility] [address] [facility] [id number], [place] [address] Mar, [facility] [address] [place] [id number] Mar, [facility] [address] [id number], [place] [address] Mar, [facility] [place] [facility] [address] [id number] [place] [address] Mar, [facility] [place] [facility] [address] [id number] [place] [address] Mar, [facility] [place] [facility] [address] [id number] [place] [address] Mar, [facility] [place] [facility] [address] [id number] [place] [address] Mar, [facility] [place] [facility] [address] [id number] [place] [address]- [address] Mar, [facility] [place] [facility] [address] [id number] [place] [address] Mar, [facility] [place] [facility] [address] [id number] [place] [address] Mar, [facility] [place] [facility] [address] [id number] [place] [address] Mar, [facility] [place] [facility] [address] [id number] [place] [address] Mar, [facility] [place] [facility] [address] [id number] [place] [address] Mar, [facility] [place] [facility] [address] [id number] [place] [address] 1786 Mar, [facility] [place] [facility] [address] [id number] [place] [address]- [address] Mar, [facility] [place] [facility] [address] [id number] [place] [address]- 0736 Mar, [facility] [place] [facility] [address] [id number] [place] [address] Mar, [facility] [place] [facility] [address] [id number] [place] [address]74 Feb, [facility] [place] [facility] [address] [id number] [place] [address]755 Feb, [facility] [place] [facility] [address] [id number] [place] [address]- 4009 Feb, [facility] [place] [facility] [address] [id number] [place] [address] Feb, [facility] [place] [facility] [address] [id number] [place] [address] Feb, [facility] [place] [facility] [address] [id number] [place] [address]- 0068 Feb, [facility] [place] [facility] [address] [id number] [place] [address] 69[address] Feb, [facility] [place] [facility] [address] [id number] [place] [address]- [address] Feb, [facility] [place] [facility] [address] [id number] [place] [address] Feb, [facility] [place] [facility] [address] [id number] [place] [address]841 Feb, [facility] [place] [facility] [address] [id number] [place] [address] Feb, [facility] [place] [facility] [address] [id number] [place] [address] Feb, [facility] [place] [facility] [address] [id number] [place] [address] 6035 Feb, [facility] [place] [facility] [address] [id number] [place] [address] 67[address] Feb, [facility] [place] [facility] [address] [id number] [place] [address] 37[address] Feb, [facility] [place] [facility] [address] [id number] [place] [address] 70[address] Feb, [facility] [place] [facility] [address] [id number] [place] [address] Jan, [facility] [place] [facility] [address] [id number] [place] [address] Jan, [facility] [place] [facility] [address] [id number] [place] [address] Jan, [facility] [place] [facility] [address] [id number] [place] [address] Jan, [facility] [place] [facility] [address] [id number] [place] [address] 8[address] Jan, [facility] [place] [facility] [address] [id number] [place] [address] 6[address] Jan, [facility] [place] [facility] [address] [id number] [place] [address]- [address] Jan, [facility] [place] [facility] [address] [id number] [place] [address]- [address] Jan, [facility] [place] [facility] [address] [id number], [place] [address] Jan, [facility] [place] [facility] [address] [id number] [place] [address] Jan, [facility] [place] [facility] [address] [id number], [place] [address] Jan, [facility] [place] [facility] [address] [id number], [place] [address] Jan, [facility] [place] [facility] [address] [id number], [place] [address] Jan, [facility] [place] [facility] [address] [id number] [place] [address]- 9984 Jan, [facility] [place] [facility] [address] [id number], [place] [address]- [address] Jan, [facility] [place] [facility] [address] [id number], [place] [address]843 Jan, [facility] [place] [facility] [address] [id number] [place] [address] 04 Jan, 2012 [facility] [place] [facility] [address] [id number] [place] [address] 2546 21 Dec, 2011 [facility] [place] [facility] [address] [id number] [place] [address] 2546 20 Dec, 2011 [facility] [place] [facility] [address] [id number] [place] [address] 2546 18 Dec, 2011 [facility] [place] [facility] [address] [id number] [place] [address] 2546 18 Dec, 2011 [facility] [place] [facility] [address] [id number] [place] [address]- [address]406 10 Dec, 2011 [facility] [place] [facility] [address] [id number] [place] [address] 2546 10 Dec, 2011 [facility] [place] [facility] [address] [id number] [place] [address]- 1617 10 Dec, 2011 [facility] [place] [facility] [address] [id number] [place] [address]- 7716 07 Dec, 2011 [facility] [place] [facility] [address] [id number] [place] [address]- 4928 30 Nov, 2011 [facility] [place] [facility] [address] [id number] [place] [address]- 9133 Nov, [facility] [place] [facility] [address] [id number] [place] [address]- 3727 24 Nov, 2011 [facility] [place] [facility] [address] [id number] [place] [address]- 2546 Nov, [facility] [place] [facility] [address] [id number] [place] [address] 2546 Nov, [facility] [place] [facility] [address] [id number] [place] [address]- [address]46 16 Nov, 2011 [facility] [place] [facility] [address] [id number] [place] [address]- 5753 30 Oct, 2011 [facility] [place] [facility] [address] [id number] [place] [address]- 9725 30 Oct, 2011 [facility] [place] [facility] [address] [id number] [place] [address]- [address] Oct, [facility] [facility] [address] [id number] [place] [address] Oct, [facility] [place] [facility] [address] [id number] [place] [address] Oct, [facility] [place] [facility] [address] [id number] [place] [address] 2547 Oct, [facility] [place] [facility] [address] [id number] [place] [address] Oct, [facility] [place] [facility] [address] [id number] [place] [address] Sep, [facility] [place] [facility] [address] [id number] [place] [address] Sep, [facility] [place] [facility] [address] [id number] [place] [address] Sep, [facility] [place] [facility] [address] [id number] [place] [address] Sep, [facility] [place] [facility] [address] [id number] [place] [address] Sep, [facility] [place] [facility] [address] [id number] [place] [address] 15 Sep, 2011 [facility] [place] [facility] [address] [id number] [place] [address] 2540 14 Sep, 2011 [facility] [place] [facility] [address] [id number] [place] [address] 2549 11 Sep, 2011 [facility] [place] [facility] [address] [id number] [place] [address] 2547 05 Sep, 2011 [facility] [place] [facility] [address] [id number] [place] [address] Sep, [facility] [address] [id number] [place] [address] August, [facility] [place] [facility] [address] [id number] [place] [address]206 August, [facility] [address] [id number] [place] [address] 63[address] August, [facility] [place] [facility] [address] [id number] [place] [address] 65[address] August, [facility] [address] [id number] [place] [address] August, [facility] [address] [id number] [place] [address] Jul, [facility] [place] [facility] [address] [id number] [place] [address] 95[address] Jul, [facility] [place] [facility] [address] [id number] [place] [address] Jul, [facility] [place] [facility] [address] [id number] [place] [address] Jul, [facility] [place] [facility] [address] [id number] [place] [address]- 1157 Jul, [facility] [place] [facility] [address] [id number] [place] [address] 5[address] Jul, [facility] [place] [facility] [address] [id number], [place] [address] Jul, [facility] [place] [facility] [address] [id number] [place] [address] Jun, [facility] [facility] [address] [id number] [place] [address] 7947 Jun, [facility] [place] [facility] [address] [id number] [place] [address] 7925 Jun, [facility] [place] [facility] [address] [id number] [place] [address] 2637 Jun, [facility] [place] [facility] [address] [id number] [place] [address]276 Jun, [facility] [place] [facility] [address] [id number] [place] [address] 2546 May, [facility] [place] [facility] [address] [id number] [place] [address] May, [facility] [address] [id number] [place] [address] 2541 May, [facility] [address] [id number] [place] [address]- 48[address] May, [facility] [address] [facility] [id number] [place] [address] 1797 May, [facility] [address] [id number] [place] [address] May, [facility] [address] [facility] [id number] [place] [address]678 Apr, [facility] [place] [facility] [address] [id number] [place] [address] Mar, [facility] [place] [facility] [address] [facility] [id number] [place] [address] Feb, [facility] [place] [facility] [address] [facility] [id number] [place] [address] 7514 Feb, [facility] [address] [id number] [place] [address] 2543 Feb, [facility] [address] [facility] [id number] [place] [address] 2546 Feb, [facility] [address] [facility] [id number] [place] [address]- 2546 Jan, [facility] [address] [facility] [id number] [place] [address]- [address] 27 Jan, 2011 [facility] [address] [id number] [place] [address] 4099 26 Jan, 2011 [facility] [address] [id number] [place] [address]- 9688 24 Jan, 2011 [facility] [address] [id number] [place] [address]109 14 Jan, 2011 [facility] [address] [id number] [place] [address]- 5364 19 Dec, 2010 [facility] [address] [id number] [place] [address]- 7703 Oct, [facility] [address] [id number] [place] [address]- 8[address] August, [facility] [address] [id number] [place] [address] 6133 29 Mar, 2010 [facility] [address] [id number] [place] [address]- [address]15 27 Mar, 2010 [facility] [address] [id number] [place] [address]- 4508 16 Mar, 2010 [facility] [address] [id number] [place] [address]- 9793 15 Mar, 2010 [facility] [address] [id number], [place] [address] 15 Mar, 2010 [facility] [address] [id number], [place] [address]- 6728 08 Mar, 2010 [facility] [place] [facility] [address] [id number] [place] [address]- 8536 03 Mar, 2010 [facility] [address] [id number] [place] [address]- 5149 24 Feb, 2010 [facility] [address] [id number] [place] [address]- 9775 24 Feb, 2010 [facility] [address] [id number] [place] [address]- 0149 15 Feb, 2010 [facility] [address] [id number] [place] [address]- 5205 19 Jan, 2010 [facility] [address] [id number] [place] [address]- 7650 18 Jan, 2010 [facility] [address] [id number] [place] [address]- 6235 18 Jan, 2010 [facility] [address] [id number] [place] [address]- 1263 Nov, [facility] [address] [id number] [place] [address]- [address]443 14 Sep, 2009 [facility] [address] [id number] [place] [address]- 6569 August, [facility] [address] [facility] [id number] [place] [address]- 0438 30 Mar, 2009 [facility] [address] [id number], [place] [address]- 0898 07 Mar, 2009 [facility] [address] [facility] [id number] [place] [address]- 5458 17 Feb, 2009 [facility] [address] [facility] [id number], [place] [address]- 1749 10 Feb, 2009 [facility] [address] [facility] [id number] [place] [address]- 5733 10 Feb, 2009 [facility] [address] [facility] [id number], [place] [address]- 2547 10 Feb, 2009 [facility] [address] [id number], [place] [address]- 8150 06 Feb, 2009 [facility] [address] [facility] [id number], [place] [address]- 6767 27 Jan, 2009 [facility] [address] [id number], [place] [address]- 4[address] 26 Jan, 2009 [facility] [address] [id number], [place] [address]99 Jan, [facility] [id number], [place] [address] Jan, [facility] [id number], [place] [address] 9447 Nov, [facility] [id number] [place] [address] Sep, [facility] [id number], [place] [address]- [address] August, [facility] [id number] [place] [address]- [address] Jul, [facility] [id number], [place] [address] May, IMMUNIZATIONS No Known Immunizations SOCIAL HISTORY Never Assessed REASON FOR VISIT Medication refill request PLAN OF CARE VITAL SIGNS MEDICATIONS Medication Instructions Dosage Frequency Start Date End Date Duration Status Abilify 10 MG Orally Once a day 1 tablet 24h 90 days Active RESULTS No Results PROCEDURES [...] Knee Surgery 07/16/17 Hospitalization History [facility] [place]- left hand/wrist swelling 10/09/2017
--- OUTSIDE RECORDS SUMMARY | 2018-01-01 12:17 | XMS REPORT ---
Author Author SENAIT DUNLAP [facility] Address [address] [place] [address] Care Team Providers Care [employer] Rep Name Role Phone SENAIT DUNLAP Unavailable PROBLEMS Type Condition ICD9-CM Code VIG66-PP Code Onset Dates Condition Status SNOMED Code Problem History of common bile duct surgery Z98.89 Active 468147002 Problem Barretts esophagus K22.70 Active 619007127 Problem 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 Active 43304160 Problem Colon polyp K63.5 Active 94162536 Problem Bilateral low back pain without sciatica M54.5 Active 238142024 Problem Screening breast examination Z12.39 Active 680530930 Problem Postmenopausal Z78.0 Active 60273954 Problem Osteopenia M85.80 Active 369316946 Problem Cigarette nicotine dependence without complication F17.210 Active 96411440 Problem Type 2 diabetes mellitus with diabetic peripheral angiopathy without gangrene E11.51 Active 776000528 Problem Vascular dementia without behavioral disturbance F01.50 Active [id number] Problem Unspecified atherosclerosis of makah arteries of extremities, unspecified extremity I70.209 Active 384531499971101 Problem Arthritis M19.90 Active 6655218 Problem Chronic atrial fibrillation I48.2 Active 681896213 Problem Chronic obstructive pulmonary disease with acute lower respiratory infection J44.0 Active 131931963 Problem Other chronic pancreatitis K86.1 Active 153256995 Problem Stress incontinence of urine N39.3 Active 98943934 Problem Controlled type 2 diabetes mellitus without complication, without long -term current use of insulin E11.9 Active 183757519 Problem Unspecified psychosis F29 Active 07998365 Problem Xeroderma Q80.9 Active 93039467 Problem COPD (chronic obstructive pulmonary disease) J44.9 Active 64011342 Problem Dementia without behavioral disturbance, unspecified dementia type F03.90 Active 25949174 Problem Gastroparesis K31.84 Active 344840874 Problem Type 2 diabetes mellitus with diabetic neuropathy, without long-term current use of insulin E11.40 Active 94063551 Problem Osteoporosis M81.0 Active 15028114 Problem Atherosclerosis of makah artery of both lower extremities with intermittent claudication I70.213 Active 658183275514176 Problem Hyperlipidemia E78.5 Active 55643844 Problem Diabetic polyneuropathy associated with type 2 diabetes mellitus E11.42 Active 37069127 Problem Essential tremor G25.0 Active 68105698 Problem 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 Active 4691009106571 Problem Generalized anxiety disorder F41.1 Active 617347068 Problem Gastroesophageal reflux disease, esophagitis presence not specified K21.9 Active 903677243 Problem Coronary artery disease involving makah coronary artery of makah 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 I25.118 Active 4511056831116 Problem Postconcussion syndrome F07.81 Active 04589215 Problem Chronic pain syndrome G89.4 Active 908720689 Problem Migraine without aura and without status migrainosus, not intractable G43.009 Active 286512527 Problem Paroxysmal atrial fibrillation I48.0 Active 880662933 Problem Migraine without aura and with status migrainosus, not intractable G43.001 Active 463869036 Problem Cervicalgia M54.2 Active 9696839965891 Problem Acute exacerbation of chronic obstructive pulmonary disease (COPD) J44.1 Active 394728044 Problem Major depressive disorder, recurrent episode, moderate F33.1 Active 488108800 Problem Crohn''s disease without complication, unspecified gastrointestinal tract location K50.90 Active 40157494 Problem Chronic fatigue R53.82 Active 73638446 Problem Bipolar affective disorder, currently depressed, moderate F31.32 Active 131248951 ALLERGIES No Information ENCOUNTERS Encounter Location Date Diagnosis [facility] [address] [facility] [id number] [address] Nov, [facility] [id number], [place] [address] Nov, [place] [id number], [place] [address] Oct, [facility] [id number], [place] [address] Oct, Bipolar affective disorder, currently depressed, moderate F31.32 ; Vascular dementia without behavioral disturbance F01.50 and Generalized anxiety disorder F41.1 [facility] [id number] [place] [address] 32998- 0124 Oct, [facility] [id number] [place] [address] 84109- 3808 Oct, [facility] [id number] [place] [address] 99903- 7864 Oct, Edema of both legs R60.0 [facility] [id number] [place] [address] 75474- 7732 Oct, [facility] [id number] [place] [address] 02988- 1260 Sep, [facility] [id number] [place] [address] 96583- 0537 Sep, [facility] [id number] [place] [address] 17166- 9765 Sep, [facility] [id number] [place] [address] 13341- 3284 Sep, Encounter for well woman exam with routine gynecological exam Z01.419 ; Screening for STDs (sexually transmitted diseases) Z11.3 ; Screening breast examination Z12.31 and Overweight (BMI 25.0-29.9) E66.3 [facility] [address], [place] [address] 07[address] Sep, [facility] [address] [id number] [address] 6900 Sep, [facility] [id number] [place] [address] 53524- 7600 Sep, [facility] [id number] [place] [address] 88636- 6453 August, [facility] [id number], [place] [address] 0358 August, [facility] [address] [id number] [address] 6186 August, Type 2 diabetes mellitus with diabetic neuropathy, without long-term current use of insulin E11.40 and Sprain of right ankle, unspecified ligament, initial encounter S93.401A [facility] [address] [id number], [place] [address] 1778 August, [facility] [id number] [place] [address] 99245- 4099 August, [facility] [id number] [place] [address] 20694- 3320 August, [facility] [id number] [place] [address] 58744- 1801 August, Gastroesophageal reflux disease, esophagitis presence not specified K21.9 [facility] [id number] [place] [address] 37578- 7710 August, [facility] [id number] [place] [address] 94416- 9250 August, [facility] [id number] [place] [address] 52755- 4484 August, [facility] [id number] [place] [address] 66554- 1796 August, Type 2 diabetes mellitus with diabetic neuropathy, without long-term current use of insulin E11.40 and Elevated liver enzymes R74.8 [facility] [id number] [place] [address] 37647- 6662 Jul, [facility] [id number] [place] [address] 35776- 4445 Jul, Cough R05 [facility] [id number] [place] [address] 83628- 2088 Jul, [facility] [address], [place] [address]- 7084 Jul, [facility] [id number] [place] [address] 90692- 6864 Jul, Bipolar affective disorder, currently depressed, moderate F31.32 ; Vascular dementia without behavioral disturbance F01.50 and Generalized anxiety disorder F41.1 [facility] [id number] [place] [address] 25008- 7480 Jul, [facility] [address] 45921- 9920 Jul, Type 2 diabetes mellitus with diabetic neuropathy, without long-term current use of insulin E11.40 and Elevated liver enzymes R74.8 [facility] [address] 87895- 4202 Jul, [facility] [id number] [place] [address] 60535- 2187 Jul, [facility] [id number] [place] [address] 19383- 2270 Jul, [facility] [id number] [place] [address] 22569- 6838 Jul, Post-menopausal Z78.0 [facility] [address] 71512- 9132 Jul, Stress incontinence of urine N39.3 [facility] [id number] [place] [address] 20568- 3513 Jul, [facility] [id number] [place] [address] 09496- 2976 Jul, [facility] [id number] [place] [address] 92469- 4549 Jul, Stress incontinence of urine N39.3 and Cough R05 [facility] [id number] [place] [address] 98748- 5333 Jul, [facility] [id number] [place] [address] 48511- 1194 Jul, [facility] [id number] [place] [address] 22046- 6946 Jul, [facility] [id number] [place] [address] 94207- 8076 Jul, Gastroesophageal reflux disease, esophagitis presence not specified K21.9 [facility] [id number] [place] [address] 45380- 1181 Jun, Diabetic polyneuropathy associated with type 2 diabetes mellitus E11.42 [facility] [id number] [place] [address] 47929- 4068 Jun, Diabetic polyneuropathy associated with type 2 diabetes mellitus E11.42 ; Coronary artery disease involving makah coronary artery of makah 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 I25.118 and Paroxysmal atrial fibrillation I48.0 [place] [id number] [place] [address] 86126- 6200 Jun, [place] [id number] [place] [address] 98599- 7843 Jun, [facility] [id number] [place] [address] 81392 2541 Jun, Gastroenteritis K52.9 [facility] [id number] [place] [address] 25729 2546 Jun, Gastroenteritis K52.9 [facility] [id number] [place] [address] 01518 2548 Jun, [facility] [id number] [place] [address] 53465 2543 Jun, [facility] [id number] [place] [address] 67628- 6552 Jun, Sprain of right ankle, unspecified ligament, initial encounter S93.401A ; Type 2 diabetes mellitus with diabetic neuropathy, without long-term current use of insulin E11.40 ; Atherosclerosis of makah artery of both lower extremities with intermittent claudication I70.213 ; 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 ; Chronic atrial fibrillation I48.2 and Crohn''s disease without complication, unspecified gastrointestinal tract location K50.90 [facility] [id number] [place] [address] 83600 -8889 17 Jun, 2017 Cough R05 and Chronic obstructive pulmonary disease with acute lower respiratory infection J44.0 [facility] [id number] [place] [address] 05509- 3364 Jun, [place] [id number] [place] [address] 24057- 2686 Jun, Coughing R05 ; Unspecified atherosclerosis of makah arteries of extremities, unspecified extremity I70.209 ; Type 2 diabetes mellitus with diabetic peripheral angiopathy without gangrene E11.51 ; Crohn''s disease without complication, unspecified gastrointestinal tract location K50.90 ; Other chronic pancreatitis K86.1 and Chronic atrial fibrillation I48.2 [facility] [id number] [place] [address] 49174 -2455 Jun, [place] [id number] [place] [address] 42147- 6890 Jun, Bipolar affective disorder, currently depressed, moderate F31.32 ; Vascular dementia without behavioral disturbance F01.50 and Generalized anxiety disorder F41.1 [place] [id number] [place] [address] 33821- 2192 May, Generalized anxiety disorder F41.1 [place] [id number] [place] [address] 06140- 3713 May, [place] [id number] [place] [address] 39897- 6599 May, [place] [id number] [place] [address] 58873- 3360 May, Coughing R05 [place] [id number] [place] [address] 30857- 1433 09 May, 2017 [place] [id number] [place] [address] 98346- 5636 May, Bipolar affective disorder, currently depressed, moderate F31.32 ; Vascular dementia without behavioral disturbance F01.50 and Generalized anxiety disorder F41.1 [place] [id number] [place] [address] 82909- 0978 Apr, Generalized anxiety disorder F41.1 [place] [id number] [place] [address] 48821- 8221 Apr, [place] [id number] [place] [address] 73809- 2101 Apr, Vascular dementia without behavioral disturbance F01.50 ; Generalized anxiety disorder F41.1 and Bipolar affective disorder, currently depressed, moderate F31.32 [place] [id number] [place] [address] 49666- 3332 Apr, Generalized anxiety disorder F41.1 [facility] [id number] [place] [address] 76073 -4017 Apr, Cough R05 and Acute exacerbation of chronic obstructive pulmonary disease (COPD) J44.1 [place] [id number] [place] [address] 06905- 1809 Apr, [facility] [id number] [place] [address] 88676 -3056 Mar, Cough R05 and Cigarette nicotine dependence without complication F17.210 [place] [id number] [place] [address] 91400- 8773 Mar, [place] [id number] [place] [address] 93642- 9608 Feb, Generalized anxiety disorder F41.1 ; Major depressive disorder, recurrent episode, moderate F33.1 ; Vascular dementia without behavioral disturbance F01.50 and Unspecified psychosis F29 [place] [id number] [place] [address] 73987- 9147 Feb, [place] [id number] [place] [address] 36212- 0647 Feb, [place] [id number] [place] [address] 39360- 9586 Feb, Generalized anxiety disorder F41.1 [place] [id number] [place] [address] 61689- 0947 Feb, Generalized anxiety disorder F41.1 [place] [address] 04819- 0272 Feb, Dizziness R42 ; Chronic fatigue R53.82 ; Postconcussion syndrome F07.81 ; Fall, initial encounter W19.XXXA and Disorientation R41.0 [place] [address] 50143- 1581 Feb, Postconcussion syndrome F07.81 ; Injury of head, initial encounter S09.90XA ; Fall, initial encounter W19.XXXA ; Disorientation R41.0 and Acute cystitis with hematuria N30.01 [place] [address] 00210- 3848 Jan, Gastroesophageal reflux disease, esophagitis presence not specified K21.9 ; Post-menopausal Z78.0 and Migraine without aura and without status migrainosus, not intractable G43.009 [place] [id number] [place] [address] 39649- 9297 Jan, [place] [id number] [place] [address] 91645- 5789 Jan, Generalized anxiety disorder F41.1 ; Major depressive disorder, recurrent episode, moderate F33.1 ; Vascular dementia without behavioral disturbance F01.50 and Unspecified psychosis F29 [place] [address] 35278- 5299 Jan, Pneumonia of left lower lobe due to infectious organism J18.1 [place] [id number] [place] [address] 66026- 3859 Jan, Migraine without aura and with status migrainosus, not intractable G43.001 [facility] [address], [place] [address] -3755 04 Jan, 2017 Migraine without aura and without status migrainosus, not intractable G43.009 [facility] [id number] [place] [address] 11675- 7323 19 Dec, 2016 Hematoma T14.8 [facility] [id number] [place] [address] 72406- 7856 Dec, [facility] [id number] [place] [address] 07707 -4933 Nov, Fatigue, unspecified type R53.83 [place] [id number] [place] [address] 55301- 6108 Nov, Scabies B86 and Coronary artery disease involving makah coronary artery of makah 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 I25.118 [place] [id number] [place] [address] 31778- 5462 Nov, [facility] [id number] [place] [address] 31911- 7378 Nov, [place] [id number] [place] [address] 70860- 8673 Oct, [place] [id number] [place] [address] 66524- 0417 Oct, Generalized anxiety disorder F41.1 and Major depressive disorder, recurrent episode, moderate F33.1 [facility] [id number] [place] [address] 18973- 7385 Oct, Cramp of both lower extremities R25.2 [place] [id number] [place] [address] 86574- 6400 Oct, Leg cramps R25.2 [place] [id number] [place] [address] 72339- 6169 Oct, Chronic pain syndrome G89.4 [place] [id number], [place] [address]- 2070 17 Oct, 2016 [facility] [id number] [place] [address] 75423- 5345 14 Oct, 2016 [facility] [id number] [place] [address] 15660- 9684 11 Oct, 2016 Routine gynecological examination Z01.419 and Screening for breast cancer Z12.31 [place] [id number] [place] [address] 32848- 4366 28 Sep, 2016 Diarrhea R19.7 [place] [id number] [place] [address] 49812- 6570 Sep, Back pain M54.9 [place] [id number] [place] [address] 93683- 1040 Sep, [place] [id number] [place] [address] 03959- 4454 Sep, [facility] [id number] [place] [address] 57402 -4328 August, Xeroderma Q80.9 [place] [id number] [place] [address] 18794- 2933 August, Dementia without behavioral disturbance, unspecified dementia type F03.90 [place] [id number] [place] [address] 93017- 0365 August, Chronic pain syndrome G89.4 [place] [id number] [place] [address] 13704- 6297 August, [facility] [id number] [place] [address] 56008- 8384 August, Hyperlipidemia E78.5 ; Other fatigue R53.83 and Other specified hypotension I95.89 [facility] [address], [place] [address] -6528 August, Dysuria R30.0 ; Other fatigue R53.83 and Other specified hypotension I95.89 [facility] [id number] [place] [address] 11697- 3946 August, [facility] [address] 13071- 3233 Jul, Pain in left knee M25.562 and Gastroenteritis K52.9 [facility] [address] 71074- 2888 Jul, [facility] [address] 33271- 0459 Jul, Diarrhea R19.7 [facility] [address] 75880 -3618 Jul, Spider bite, accidental or unintentional, initial encounter T63.301A [place] [address] 58157- 9806 Jul, Primary osteoarthritis of right knee M17.11 and Arthritis M19.90 [facility] [address] 36654- 1213 Jul, Generalized anxiety disorder F41.1 and Major depressive disorder, recurrent episode, moderate F33.1 [facility] [id number] [place] [address] 06013- 3120 Jul, Type 2 diabetes mellitus with diabetic polyneuropathy E11.42 and Temporal headache R51 [facility] [id number] [place] [address] 28779- 6435 Jul, Back pain M54.9 [facility] [id number] [place] [address] 29360- 7543 Jul, [facility] [address] 93827- 8430 Jul, [facility] [id number] [place] [address] 08208- 2980 Jun, Nausea R11.0 [facility] [address] [place] [address] Jun, Acute suppurative otitis media of both ears without spontaneous rupture of tympanic membranes, recurrence not specified H66.003 and COPD exacerbation J44.1 [facility] [address] 79050- 0036 Jun, Generalized anxiety disorder F41.1 [place] [address] 35846- 7838 16 Jun, 2016 [facility] [address] 46704 -5102 Jun, [facility] [address] 30675 -8282 Jun, Shortness of breath R06.02 and COPD exacerbation J44.1 [place] [address] 21906- 3543 Jun, Eczema, unspecified type L30.9 [place] [address] 53216- 7072 Jun, [place] [address] 37206- 7364 May, [place] [id number] [place] [address] 78394- 6137 May, Muscle cramping R25.2 [place] [id number] [place] [address] 75619- 1542 May, [place] [address] 22855- 5451 Apr, Diarrhea R19.7 [place] [address] 57926- 4632 Apr, [place] [id number] [place] [address] 62923- 5011 Apr, Chronic pain syndrome G89.4 [place] [id number] [place] [address] 63210- 5264 16 Apr, 2016 Cramp of both lower extremities R25.2 and Vascular dementia without behavioral disturbance F01.50 [place] [address] 58582- 1344 Apr, Type 2 diabetes mellitus with diabetic polyneuropathy E11.42 and Cigarette nicotine dependence without complication F17.210 [place] [address] 05072- 7660 Mar, Generalized anxiety disorder F41.1 [place] [address] 46385- 4608 Feb, Generalized anxiety disorder F41.1 and Major depressive disorder, recurrent episode, moderate F33.1 [place] [address] 14711- 2807 Feb, [facility] [address] [address]55 -4477 Feb, Dysuria R30.0 and Acute cystitis with hematuria N30.01 [place] [address] 60931- 5633 Jan, [place] [address] 90295- 5514 Jan, [place] [address] 44361- 4604 Jan, [place] [address] 55886- 8081 Jan, [facility] [address] 17239 -4013 Jan, Wasp sting, accidental or unintentional, initial encounter T63.461A [place] [address] 54023- 3238 06 Jan, 2016 Encounter for immunization Z23 [place] [address] 83863- 0203 Jan, [facility] [address], [place] [address] 2490 Jan, [facility] [id number] [place] [address] 07527- 9556 28 Dec, 2015 Generalized anxiety disorder F41.1 and Major depressive disorder, recurrent episode, moderate F33.1 [facility] [id number] [place] [address] 67303- 9130 21 Dec, 2015 Routine gynecological examination Z01.419 ; Postmenopausal Z78.0 ; Screening breast examination Z12.39 ; Osteopenia M85.80 and Breast cancer screening Z12.39 [facility] [id number] [place] [address] 55783- 8180 20 Dec, 2015 [facility] [id number] [place] [address] 93650- 4207 19 Dec, 2015 [facility] [id number] [place] [address] 03088- 0102 16 Dec, 2015 [facility] [id number] [place] [address] 16069- 1213 16 Dec, 2015 [facility] [id number] [place] [address] 44181- 7353 14 Dec, 2015 [facility] [id number] [place] [address] 14644- 9247 Dec, [facility] [id number] [place] [address] 60346- 7701 Nov, [facility] [id number] [place] [address] 27231 -9130 Nov, Cough R05 ; Other viral agents as the cause of diseases classified elsewhere B97.89 and Acute upper respiratory infection, unspecified J06.9 [facility] [address], [place] [address] 1886 Nov, [facility] [id number] [place] [address] 49092- 6565 Nov, [facility] [id number], [place] [address]- 4732 Nov, [facility] [id number], [place] [address]- 1620 Nov, [facility] [id number], [place] [address]- 2997 Nov, [facility] [id number] [place] [address] 34929- 1795 Oct, [facility] [id number] [place] [address] 22387- 9448 Oct, [facility] [id number], [place] [address]- 3388 Oct, [facility] [id number] [place] [address] 33819- 4581 Oct, Chronic pain syndrome G89.4 [facility] [id number], [place] [address]- 2083 Sep, Generalized anxiety disorder F41.1 and Major depressive disorder, recurrent episode, moderate F33.1 [facility] [id number], [place] [address]- 1916 Sep, [facility] [id number], [place] [address]- 7474 Sep, [facility] [id number], [place] [address]- 4243 14 Sep, 2015 Generalized anxiety disorder F41.1 [facility] [id number], [place] [address]- 5162 13 Sep, 2015 Cramp of both lower extremities R25.2 and Cervicalgia M54.2 [facility] [id number], [place] [address]- 3422 06 Sep, 2015 Generalized anxiety disorder F41.1 [facility] [id number] [address]- 6577 Sep, [facility] [id number] [place] [address] 54488 -2204 August, Rash R21 ; Itching L29.9 and Allergic response, subsequent encounter T78.40XD [facility] [id number] [place] [address] 00363- 0134 August, Primary insomnia F51.01 [facility] [id number] [place] [address] 74151 -0958 August, Rash R21 ; Itching L29.9 and Allergic response, initial encounter T78.40XA [place] [id number] [place] [address] 80183- 0044 August, [place] [id number] [place] [address] 50261- 6776 August, Cramp of both lower extremities R25.2 [place] [id number] [place] [address] 08641- 7608 August, Back pain M54.9 [place] [id number] [place] [address] 00306- 2966 August, [place] [id number] [place] [address] 32422- 0306 August, [facility] [id number] [place] [address] 02024 -8086 August, Cramp of both lower extremities R25.2 [place] [id number] [place] [address] 18897- 5770 August, [place] [address] [id number] [place] [address] 92355- 3596 August, Syncope R55 ; Paroxysmal atrial fibrillation I48.0 ; Dementia without behavioral disturbance, unspecified dementia type F03.90 and Chronic pain syndrome G89.4 [place] [id number] [place] [address] 18165- 9686 August, Type 2 diabetes mellitus with diabetic polyneuropathy E11.42 and Syncope R55 [facility] [id number] [place] [address] 78023- 9928 Jul, [facility] [id number] [place] [address] 23383- 7515 Jul, [facility] [id number] [place] [address] 79068- 5336 Jul, [facility] [id number] [place] [address] 48977- 6916 Jul, [facility] [id number] [place] [address] 35401- 1854 Jul, [facility] [id number] [place] [address] 34891- 7165 Jul, UTI (urinary tract infection) N39.0 [facility] [id number] [place] [address] 70283- 6936 Jul, [facility] [id number] [place] [address] 29407- 9767 Jul, Major depressive disorder, recurrent episode, moderate F33.1 and Generalized anxiety disorder F41.1 [facility] [id number] [place] [address] 05334- 3749 Jul, Generalized anxiety disorder F41.1 [facility] [id number] [place] [address] 61014- 7532 Jul, Diarrhea R19.7 [facility] [id number] [place] [address] 68256- 8686 Jul, [facility] [id number] [place] [address] 45658- 1121 Jun, [facility] [id number] [place] [address] 75949- 3981 Jun, Eczema L30.9 [facility] [id number], [place] [address]- 9310 Jun, [facility] [id number], [place] [address]- 1676 Jun, COPD (chronic obstructive pulmonary disease) J44.9 [facility] [id number], [place] [address]- 1476 Jun, [facility] [id number] [place] [address] 96394- 5782 Jun, Major depressive disorder, recurrent episode, moderate F33.1 and Generalized anxiety disorder F41.1 [facility] [id number], [place] [address]- 5316 May, [facility] [id number], [place] [address]- 9123 May, UTI (urinary tract infection) N39.0 [facility] [id number], [place] [address]- 3087 May, [facility] [id number], [place] [address]- 4435 May, [facility] [id number], [place] [address]- 3864 May, [facility] [id number], [place] [address]- 9236 May, [facility] [id number], [place] [address]- 5621 Apr, Major depressive disorder, recurrent episode, moderate F33.1 and Generalized anxiety disorder F41.1 [facility] [id number], [place] [address]- 6168 Apr, COPD (chronic obstructive pulmonary disease) J44.9 [facility] [id number], [place] [address]- 1306 Apr, [facility] [id number] [address]- 1329 Apr, Atrial flutter I48.92 [facility] [id number] [place] [address] 41443- 8352 Apr, [facility] [id number] [place] [address] 23536- 2826 Apr, [facility] [id number] [place] [address] 19048- 0584 Mar, [facility] [id number] [place] [address] 65462- 6933 Mar, [facility] [id number] [place] [address] 70853- 2009 Mar, [facility] [id number] [place] [address] 98828- 1801 Mar, Hyperlipidemia E78.5 ; Type 2 diabetes mellitus with diabetic polyneuropathy E11.42 ; Major depressive disorder, recurrent episode, moderate F33.1 and Chronic pain syndrome G89.4 [facility] [id number] [place] [address] 65900- 7012 Mar, [facility] [id number] [place] [address] 48786- 7476 Mar, [facility] [id number] [place] [address] 85232- 1300 Mar, [facility] [id number] [place] [address] 19098- 3715 Mar, [facility] [id number] [place] [address] 15139- 8625 Feb, COPD (chronic obstructive pulmonary disease) J44.9 and Back pain M54.9 [facility] [id number], [place] [address]- 2870 Feb, [facility] [id number] [place] [address] 25141- 9370 Feb, [facility] [id number], [place] [address]- 8312 Feb, [facility] [id number] [place] [address] 46417- 6789 Feb, [facility] [id number], [place] [address]- 5905 Feb, [facility] [id number] [place] [address] 13089- 9547 Feb, [facility] [id number] [place] [address] 36462- 2825 Feb, [facility] [id number] [place] [address] 28076- 8896 Feb, [facility] [id number] [place] [address] 90127- 1812 Feb, Diabetes E11.9 ; Back pain M54.9 and COPD (chronic obstructive pulmonary disease) J44.9 [facility] [id number] [place] [address] 05606- 3972 Jan, [facility] [id number] [place] [address] 65288- 4772 Jan, Major depression, recurrent F33.9 and Generalized anxiety disorder F41.1 [facility] [id number] [place] [address] 47015- 2795 Jan, Chronic pain G89.29 [facility] [id number], [place] [address]- 9911 Jan, [facility] [id number] [place] [address] 28129- 1319 Jan, [facility] [id number] [place] [address] 38398- 9928 Jan, [facility] [id number], [place] [address]- 8162 Jan, [facility] [id number] [place] [address] 11400- 0079 Jan, Nicotine dependence F17.200 [facility] [address] 22442- 5325 Jan, Nicotine dependence F17.200 and Back pain M54.9 [facility] [id number] [place] [address] 05244- 1512 Jan, [facility] [id number] [place] [address] 06165- 7966 28 Dec, 2014 [facility] [id number] [place] [address] 31377- 2118 25 Dec, 2014 Anxiety, generalized 300.02 and Major depression, recurrent 296.30 [facility] [id number] [place] [address] 15471- 8023 24 Dec, 2014 [facility] [id number] [place] [address] 73739- 4349 21 Dec, 2014 [facility] [id number] [place] [address] 35946- 3412 17 Dec, 2014 [facility] [id number] [place] [address] 99562- 8232 15 Dec, 2014 [facility] [id number] [place] [address] 50471- 4698 14 Dec, 2014 [facility] [id number] [place] [address] 13291- 4343 11 Dec, 2014 [facility] [id number] [place] [address] 16215- 3071 10 Dec, 2014 [facility] [id number] [place] [address] 90876- 0902 08 Dec, 2014 Skin tear 879.8 [facility] [id number] [place] [address] 02205- 1826 08 Dec, 2014 Routine gynecological examination V72.31 ; Breast cancer screening V76.10 and Family history of breast cancer in first degree relative V16.3 [facility] [id number], [place] [address]- 3171 Dec, [facility] [id number] [place] [address] 62606- 4689 Dec, [facility] [id number], [place] [address]- 8933 Nov, [facility] [id number] [place] [address] 52539- 2624 Nov, [facility] [id number] [place] [address] 86733- 9688 Nov, Poor balance 781.99 and Vascular dementia, uncomplicated 290.40 [facility] [id number] [place] [address] 40021- 2331 Nov, [facility] [id number] [place] [address] 17649- 6017 Nov, Major depression, recurrent 296.30 and Anxiety, generalized 300.02 [facility] [id number] [place] [address] 47023- 9721 Nov, [facility] [id number] [place] [address] 16983- 9841 Nov, [facility] [id number], [place] [address]- 0315 Nov, [facility] [id number] [place] [address] 66270- 0165 Nov, [facility] [id number], [place] [address]- 2252 Nov, Vascular dementia, uncomplicated 290.40 and Lumbago 724.2 [facility] [id number], [place] [address]- 2991 Nov, [facility] [id number] [place] [address] 84625- 2417 Nov, [facility] [id number], [place] [address]- 5927 Nov, [facility] [id number], [place] [address]- 9496 Oct, [facility] [id number], [place] [address]- 4416 Oct, [facility] [id number] [place] [address] 46135- 5872 Oct, [facility] [id number], [place] [address]- 2398 Oct, COPD (chronic obstructive pulmonary disease) 496 and Hyperlipidemia 272.4 [facility] [id number], [place] [address]- 8188 Oct, Major depression, recurrent 296.30 and Anxiety, generalized 300.02 [facility] [id number] [address]- 8543 Oct, [facility] [id number], [place] [address]- 8610 Oct, [facility] [id number], [place] [address]- 5979 Oct, [facility] [id number], [place] [address]- 2116 Sep, Lumbago 724.2 and Anxiety state, unspecified 300.00 [facility] [id number], [place] [address]- 1729 Sep, [facility] [id number], [place] [address]- 7721 Sep, [facility] [id number], [place] [address]- 4666 August, [facility] [id number] [address]- 8967 August, Major depression, recurrent 296.30 ; Anxiety, generalized 300.02 and No condition on [place] II V71.09 [facility] [id number] [place] [address]- 0369 August, [facility] [address] [facility] [id number] [place] [address] 4276 August, [facility] [id number], [place] [address]- 8871 Jul, [facility] [address] [facility] [id number] [place] [address]- 9100 Jul, [facility] [id number] [place] [address]- 2154 Jul, [facility] [id number] [place] [address]- 5849 Jun, [facility] [id number] [place] [address]- 8091 Jun, [facility] [id number], [place] [address]- 6381 Jun, [facility] [id number] [place] [address]- 4947 Jun, [facility] [id number], [place] [address]- 9193 Jun, [facility] [id number] [place] [address]- 4412 Jun, [facility] [id number], [place] [address]- 1682 23 Jun, 2014 [facility] [id number] [address] 17 Jun, 2014 [facility] [address] [facility] [id number] [address] [address] Jun, [facility] [address] [id number] [address] [address] Jun, [facility] [place] [facility] [address] [id number] [place] [address] 10 Jun, 2014 [facility] [place] [facility] [address] [id number] [place] [address] 10 Jun, 2014 [facility] [place] [facility] [address] [id number] [place] [address] 07 Jun, 2014 [facility] [place] [facility] [address] [id number] [place] [address] 07 Jun, 2014 [facility] [place] [facility] [address] [id number] [place] [address] Jun, [facility] [place] [facility] [address] [id number] [place] [address] Jun, 2014 [facility] [place] [facility] [address] [id number] [place] [address] May, [facility] [place] [facility] [address] [id number] [place] [address] May, 2014 [facility] [place] [facility] [address] [id number] [place] [address] May, [facility] [place] [facility] [address] [facility] [id number] [place] [address] May, 2014 [facility] [place] [facility] [address] [facility] [id number] [place] [address] May, 2014 [facility] [place] [facility] [address] [id number] [place] [address] May, 2014 [facility] [place] [facility] [address] [id number] [place] [address] May, 2014 [facility] [place] [facility] [address] [id number] [place] [address]- [address] 12 May, 2014 [facility] [place] [facility] [address] [facility] [id number] [place] [address] May, 2014 [facility] [place] [facility] [address] [facility] [id number] [place] [address] May, 2014 [facility] [place] [facility] [address] [id number] [place] [address]- [address] May, 2014 [facility] [place] [facility] [address] [id number] [place] [address]- [address] May, 2014 [facility] [place] [facility] [address] [id number] [place] [address] May, 2014 [facility] [place] [facility] [address] [id number] [place] [address] May, [facility] [place] [facility] [address] [id number] [place] [address] Apr, [facility] [place] [facility] [address] [id number] [place] [address] Apr, [facility] [place] [facility] [address] [id number] [place] [address] Apr, [facility] [facility] [address] [id number] [place] [address] Apr, [facility] [place] [facility] [address] [id number] [place] [address] 12[address] Apr, [facility] [facility] [address] [id number] [place] [address] 54[address] Apr, [facility] [place] [facility] [address] [id number] [place] [address] 1692 Apr, [facility] [place] [facility] [address] [id number] [place] [address] 1018 Apr, [facility] [place] [facility] [address] [id number] [place] [address]- 1647 Apr, [facility] [place] [facility] [address] [id number] [place] [address] 5426 Apr, [facility] [place] [facility] [address] [id number] [place] [address] 2544 Apr, [facility] [place] [facility] [address] [id number] [place] [address]- 4069 Apr, [facility] [place] [facility] [address] [id number] [place] [address] 6320 Mar, [facility] [place] [facility] [address] [id number] [place] [address] 8912 31 Mar, 2014 [facility] [place] [facility] [address] [id number] [place] [address]- 7820 30 Mar, 2014 [facility] [place] [facility] [address] [id number] [place] [address]- 6564 30 Mar, 2014 [facility] [place] [facility] [address] [id number] [place] [address]- 8517 Mar, [facility] [place] [facility] [address] [id number] [place] [address]- 1468 Mar, [facility] [place] [facility] [address] [id number] [place] [address]- 9282 Mar, [facility] [place] [facility] [address] [id number] [place] [address]- 7718 19 Mar, 2014 [facility] [place] [facility] [address] [id number] [place] [address]- 6395 15 Mar, 2014 [facility] [place] [facility] [address] [id number] [place] [address]- 8855 15 Mar, 2014 [facility] [place] [facility] [address] [id number] [place] [address]- 5201 15 Mar, 2014 [facility] [place] [facility] [address] [id number] [place] [address]- 0723 15 Mar, 2014 [facility] [place] [facility] [address] [id number] [place] [address]- 4862 15 Mar, 2014 [facility] [place] [facility] [address] [id number] [place] [address]- 9722 15 Mar, 2014 [facility] [place] [facility] [address] [id number] [place] [address]- 5180 Mar, [facility] [place] [facility] [address] [id number] [place] [address]- 1623 Mar, [facility] [place] [facility] [address] [id number] [place] [address]- 3519 Mar, [facility] [place] [facility] [address] [id number] [place] [address]- 6377 Mar, [facility] [address] [id number] [place] [address]- 7690 Mar, [facility] [address] [id number] [place] [address]- 3679 Mar, [facility] [place] [address] [id number] [place] [address]- 6950 Feb, [facility] [address] [id number] [place] [address]- 2645 Feb, [facility] [address] [id number] [place] [address]- 8581 Feb, [facility] [place] [address] [id number] [place] [address]- 5869 Feb, [facility] [address] [id number] [place] [address]- 7108 Feb, [facility] [address] [id number] [place] [address]- 6029 Feb, [facility] [address] [id number], [place] [address]- 5797 Feb, [facility] [address] [id number] [place] [address]- 3827 Feb, [facility] [place] [facility] [address] [id number] [place] [address]- 0410 Feb, [facility] [place] [facility] [address] [id number], [place] [address] 9645 Feb, [facility] [place] [address] [id number] [place] [address]- 4983 Feb, [facility] [address] [id number] [place] [address] Feb, [facility] [address] [id number] [place] Feb, [facility] [address] [id number] [place] [address]- 7532 Feb, [facility] [address] [id number] [place] [address]- 2504 Feb, [facility] [address] [id number] [place] [address]- 6106 Feb, [facility] [address] [id number] [place] [address]- 0452 Feb, [facility] [address] [id number] [place] [address]- 7133 Jan, [facility] [address] [id number] [place] [address]- 8020 Jan, [facility] [address] [id number] [place] [address]- 3378 Jan, [facility] [address] [id number] [place] [address]- 1000 Jan, [facility] [place] [facility] [address] [id number] [place] [address]- 2320 Jan, [facility] [address] [id number] [place] [address]- 2351 Jan, [facility] [address] [id number] [place] [address]- 2761 16 Jan, 2014 [facility] [address] [id number] [place] [address] 16 Jan, 2014 [facility] [address] [id number] [place] [address]- 2845 Jan, [facility] [address] [id number] [place] [address]- 8912 Jan, [facility] [address] [id number] [place] [address]- 1481 Jan, [facility] [address] [id number] [place] [address]- 6057 Dec, [facility] [address] [id number] [place] [address]- 8558 Dec, [facility] [address] [id number] [place] [address]- 9003 Nov, [facility] [address] [id number] [place] [address]- 9077 Nov, [facility] [address] [id number] [place] [address]- 4515 Nov, [facility] [address] [id number] [place] [address]- 3034 Nov, [facility] [address] [id number] [place] [address]- 1578 Nov, [facility] [address] [id number] [place] [address]- 3587 Nov, [facility] [address] [id number], [place] [address]- 4597 Nov, [facility] [address] [id number], [place] [address]- 8527 Oct, [facility] [address] [id number] [place] [address]- 0045 Oct, [facility] [address] [id number], [place] [address]- 2611 Oct, [facility] [address] [id number] [place] Oct, [facility] [address] [id number] [place] [address]- 3713 30 Sep, 2013 [facility] [address] [id number] [place] [address]- 5512 Sep, [facility] [address] [id number] [place] [address]- 0818 Sep, [facility] [address] [id number] [place] [address]- 0734 Sep, [facility] [address] [id number] [place] [address]- 7903 Sep, [facility] [address] [id number] [place] [address]- 7815 Sep, [facility] [address] [id number] [place] [address]- 3792 Sep, [facility] [address] [id number] [place] [address]- 1347 Sep, [facility] [address] [id number] [place] [address]- 9915 Sep, [facility] [address] [id number] [place] [address]- 8379 Sep, [facility] [address] [id number] [place] [address]- 7500 Sep, [facility] [address] [id number] [place] [address]- 6960 Sep, [facility] [address] [id number] [place] [address]- 1163 Sep, [facility] [address] [id number] [place] [address]- 3442 Sep, [facility] [address] [id number] [place] [address]- 7247 August, [facility] [address] [id number] [place] [address]- 8585 August, [facility] [address] [id number] [place] [address]- 6519 August, [facility] [address] [id number] [place] [address]- 2201 August, [facility] [address] [id number] [place] [address]- 1982 August, [facility] [address] [id number] [place] [address]- 7391 August, [facility] [address] [id number] [place] [address]- 6119 August, [facility] [address] [id number] [place] [address]- 0072 August, [facility] [address] [id number] [place] [address]- 8257 August, [facility] [address] [id number] [place] [address]- 7769 August, [facility] [address] [id number] [place] [address]- 9407 August, [facility] [address] [id number] [place] [address]- 4100 August, [facility] [address] [id number] [place] [address]- 0664 August, [facility] [address] [id number] [place] [address]- 0010 August, [facility] [address] [id number] [place] [address]- 2031 August, [facility] [address] [id number] [place] [address]- 6473 August, [facility] [address] [id number] [place] [address]- 3186 August, [facility] [address] [id number] [place] [address]- 4039 August, [facility] [address] [id number] [place] [address] August, [facility] [address] [id number] [place] [address]- 5375 Jul, [facility] [address] [id number] [place] [address]- 5744 Jul, [facility] [address] [id number] [place] [address]- 8959 Jul, [facility] [address] [id number] [place] [address]- 0482 Jul, [facility] [address] [id number] [place] [address]- 9301 Jun, [facility] [address] [id number] [place] [address]- 7134 Jun, [facility] [facility] [address] [id number] [place] [address]- 2201 Jun, [facility] [address] [id number] [place] [address]- 2778 Jun, [facility] [address] [id number] [place] [address]- 8550 Jun, [facility] [address] [id number] [place] [address]- 2351 Jun, [facility] [address] [id number] [place] [address]- 5552 Jun, [facility] [place] [facility] [address] [id number] [place] [address]- 8301 Jun, [facility] [place] [facility] [address] [id number] [place] [address]- 8404 Jun, [facility] [address] [id number] [place] [address]- 1738 Jun, [facility] [address] [id number] [place] [address]- 2399 May, [facility] [address] [id number] [place] [address]- 8576 May, [facility] [address] [id number] [place] [address]- 1226 May, [facility] [address] [id number] [place] [address]- 3084 May, [facility] [address] [id number] [place] [address]- 2547 May, [facility] [address] [id number] [place] [address]- 7766 May, [facility] [address] [facility] [id number] [place] [address]- 1208 May, [facility] [address] [facility] [id number] [place] [address]- 8524 May, [facility] [place] [address] [id number] [place] [address]- 7212 May, [facility] [place] [facility] [address] [facility] [id number] [place] [address]- 9284 May, [facility] [address] [facility] [id number] [place] [address]- 3230 18 May, 2013 [facility] [facility] [address] [facility] [id number] [place] [address]- 8050 17 May, 2013 [facility] [facility] [address] [facility] [id number] [place] [address]- 2546 May, [facility] [address] [id number] [place] [address]- 1392 May, [facility] [place] [facility] [address] [facility] [id number] [place] [address]- 1696 10 May, 2013 [facility] [address] [facility] [id number] [place] [address]- 2046 07 May, 2013 [facility] [address] [id number] [place] [address]- 5283 07 May, 2013 [facility] [address] [id number] [place] [address]- 8309 17 Apr, 2013 [facility] [address] [id number] [place] [address]- 3779 Apr, [facility] [address] [id number] [place] [address]- 3841 Apr, [facility] [address] [id number] [place] [address]- 6316 Apr, [facility] [address] [id number] [place] [address]- 6238 Apr, [facility] [address] [id number] [place] [address]- 5381 Apr, [facility] [address] [id number] [place] [address]- 6143 Apr, [facility] [address] [id number] [place] [address]- 0763 Mar, [facility] [address] [id number] [place] [address]- 3940 Mar, [facility] [address] [id number] [place] [address]- 5846 Mar, [facility] [address] [id number] [place] [address]- 6641 Mar, [facility] [address] [id number] [place] [address]- 9465 Mar, [facility] [address] [id number] [place] [address]- 4926 Mar, [facility] [address] [id number] [place] [address]- 6436 Mar, [facility] [place] [facility] [address] [id number] [place] [address]- 5335 Mar, [facility] [place] [facility] [address] [id number] [place] [address]- 4991 Mar, [facility] [place] [facility] [address] [id number] [place] [address]- 7638 Mar, [facility] [place] [facility] [address] [id number] [place] [address]- 6116 Mar, [facility] [address] [id number] [place] [address]- 5450 Feb, [facility] [place] [facility] [address] [id number] [place] [address]- 1711 Feb, [facility] [address] [id number] [place] [address]- 3236 Feb, [facility] [address] [id number] [place] [address]- 7533 20 Feb, 2013 [facility] [place] [facility] [address] [id number] [place] [address]- 0239 Feb, [facility] [place] [facility] [address] [id number] [place] [address]- 7810 19 Feb, 2013 [facility] [place] [facility] [address] [id number] [place] [address]- 9060 15 Feb, 2013 [facility] [place] [facility] [address] [id number], [place] [address]- 2540 14 Feb, 2013 [facility] [place] [facility] [address] [id number] [place] [address]- 4307 14 Feb, 2013 [facility] [place] [facility] [address] [id number], [place] [address]- 5924 13 Feb, 2013 [facility] [place] [facility] [address] [id number], [place] [address]- 4852 13 Feb, 2013 [facility] [place] [facility] [address] [id number], [place] [address]- 9622 Feb, [facility] [place] [facility] [address] [id number] [place] [address]- 8559 Feb, [facility] [place] [facility] [address] [id number] [place] [address]- 7250 Feb, [facility] [place] [facility] [address] [id number] [place] [address]- 1188 Feb, [facility] [place] [facility] [address] [id number] [place] [address]- 8509 Feb, [facility] [place] [facility] [address] [id number] [place] [address]- 9521 Jan, [facility] [place] [facility] [address] [id number] [place] [address]- 1576 Jan, [facility] [place] [facility] [address] [id number] [place] [address]- 7300 Jan, [facility] [place] [facility] [address] [id number] [place] [address]- 4806 Jan, [facility] [place] [facility] [address] [id number] [place] [address]- 4102 Jan, [facility] [place] [facility] [address] [id number] [place] [address]- 0583 Jan, [facility] [place] [facility] [address] [id number], [place] [address]- 1490 Jan, [facility] [place] [facility] [address] [id number], [place] [address]- 2750 Jan, [facility] [place] [facility] [address] [id number] [place] [address]- 7299 10 Jan, 2013 [facility] [place] [facility] [address] [id number] [place] [address]- 7688 27 Dec, 2012 [facility] [place] [facility] [address] [id number] [place] [address]- 9990 20 Dec, 2012 [facility] [place] [facility] [address] [id number] [place] [address]- 3018 19 Dec, 2012 [facility] [place] [facility] [address] [id number] [place] [address]- 7269 10 Dec, 2012 [facility] [place] [facility] [address] [id number] [place] [address] 04 Dec, 2012 [facility] [place] [facility] [address] [id number] [place] [address] 03 Dec, 2012 [facility] [place] [facility] [address] [id number] [place] [address] Nov, [facility] [place] [facility] [address] [id number] [place] [address] Nov, [facility] [place] [facility] [address] [id number] [place] [address] Nov, [facility] [place] [facility] [address] [id number] [place] [address]90 Nov, [facility] [place] [facility] [address] [id number] [place] [address] Nov, [facility] [place] [facility] [address] [id number] [place] [address] Nov, [facility] [place] [facility] [address] [id number] [place] [address] Nov, [facility] [place] [facility] [address] [id number] [place] [address] Nov, [facility] [place] [facility] [address] [id number] [place] [address]42 14 Nov, 2012 [facility] [place] [facility] [address] [id number] [place] [address] Nov, [facility] [place] [facility] [address] [id number] [place] [address] Oct, [facility] [place] [facility] [address] [id number] [place] [address] 4797 Oct, [facility] [place] [facility] [address] [id number] [place] [address] 9665 Oct, [facility] [place] [facility] [address] [id number] [place] [address]- 9769 Oct, [facility] [place] [facility] [address] [id number] [place] [address] Oct, [facility] [place] [facility] [address] [id number] [place] [address]- [address]228 Oct, [facility] [place] [facility] [address] [id number] [place] [address]- 9970 Oct, [facility] [place] [facility] [address] [id number] [place] [address] 9439 Oct, [facility] [place] [facility] [address] [id number] [place] [address]- 8966 Sep, [facility] [place] [facility] [address] [id number] [place] [address]- [address]124 Sep, [facility] [place] [facility] [address] [id number] [place] [address]- 9174 Sep, [facility] [place] [facility] [address] [id number] [place] [address]- 2423 Sep, [facility] [place] [facility] [address] [id number] [place] [address] 5645 Sep, [facility] [place] [facility] [address] [id number], [place] [address] Sep, [facility] [place] [facility] [address] [id number] [place] [address] Sep, [facility] [place] [facility] [address] [id number] [place] [address] 8147 Sep, [facility] [place] [facility] [address] [id number] [place] [address] 97[address] August, [facility] [place] [facility] [address] [id number] [place] [address] 7685 August, [facility] [address] [id number] [place] [address]37 August, [facility] [address] [id number] [place] [address] 2791 August, [facility] [address] [id number] [place] [address] August, [facility] [address] [id number] [place] [address] 9474 Jul, [facility] [address] [id number] [place] [address]- 1491 Jul, [facility] [address] [id number] [place] [address]- [address]359 Jul, [facility] [address] [id number] [place] [address] Jul, [facility] [address] [id number] [place] [address] Jul, [facility] [address] [id number] [place] [address]- 3119 18 Jun, 2012 [facility] [address] [id number] [place] [address]- 9000 18 Jun, 2012 [facility] [address] [id number] [place] [address]- 5533 15 Jun, 2012 [facility] [address] [id number] [place] [address]- 3541 14 Jun, 2012 [facility] [place] [facility] [address] [id number] [place] [address]- 6736 12 Jun, 2012 [facility] [place] [facility] [address] [id number] [place] [address]- 1847 08 Jun, 2012 [facility] [address] [id number] [place] [address]- 1616 08 Jun, 2012 [facility] [address] [id number] [place] [address]- [address]124 Jun, [facility] [address] [id number] [place] [address]- 1476 Jun, [facility] [address] [id number] [place] [address]- 7206 May, [facility] [address] [id number] [place] [address]- [address]366 May, [facility] [address] [id number] [place] [address]- [address]124 May, [facility] [address] [id number] [place] [address]- 0886 May, [facility] [address] [id number] [place] [address]- 4[address] Apr, [facility] [address] [id number] [place] [address] 65[address] Apr, [facility] [address] [id number] [place] [address]- 2374 Apr, [facility] [address] [id number] [place] [address] 3323 Apr, [facility] [address] [id number] [place] [address] 3299 Apr, [facility] [address] [id number] [place] [address]- 4611 Apr, [facility] [address] [id number] [place] [address]- 5696 Apr, [facility] [address] [id number] [place] [address]- [address] Mar, [facility] [address] [place] [id number] Mar, [facility] [address] [id number] [place] [address] 6963 Mar, [facility] [place] [facility] [address] [id number] [place] [address]- 5295 Mar, [facility] [place] [facility] [address] [id number] [place] [address]- 1256 Mar, [facility] [place] [facility] [address] [id number] [place] [address]- 0198 Mar, [facility] [place] [facility] [address] [id number] [place] [address]- 0376 Mar, [facility] [place] [facility] [address] [id number] [place] [address]- 2800 Mar, [facility] [place] [facility] [address] [id number] [place] [address]- 3640 Mar, [facility] [place] [facility] [address] [id number] [place] [address]- 8309 Mar, [facility] [place] [facility] [address] [id number] [place] [address]- 7758 Mar, [facility] [place] [facility] [address] [id number] [place] [address]- 9109 Mar, [facility] [place] [facility] [address] [id number] [place] [address]- 1239 Mar, [facility] [place] [facility] [address] [id number] [place] [address]- 0480 Mar, [facility] [place] [facility] [address] [id number], [place] [address]- [address] Mar, [facility] [facility] [address] [id number] [place] [address] Mar, [facility] [place] [facility] [address] [id number] [place] [address] Mar, [facility] [place] [facility] [address] [id number] [place] [address] 110[address] Feb, [facility] [place] [facility] [address] [id number] [place] [address] Feb, [facility] [place] [facility] [address] [id number] [place] [address] Feb, [facility] [place] [facility] [address] [id number] [place] [address]- [address]296 Feb, [facility] [place] [facility] [address] [id number] [place] [address] 2040 Feb, [facility] [place] [facility] [address] [id number] [place] [address] Feb, [facility] [place] [facility] [address] [id number] [place] [address]- 385[address] Feb, [facility] [place] [facility] [address] [id number] [place] [address] 8211 Feb, [facility] [place] [facility] [address] [id number] [place] [address]- 450[address] Feb, [facility] [place] [facility] [address] [id number] [place] [address] 5040 Feb, [facility] [place] [facility] [address] [id number] [place] [address]- 1852 Feb, [facility] [place] [facility] [address] [id number] [place] [address]- 0649 Feb, [facility] [place] [facility] [address] [id number] [place] [address]- 7125 Feb, [facility] [place] [facility] [address] [id number], [place] [address] Feb, [facility] [place] [address] [id number] [place] [address]- 2706 Feb, [facility] [place] [facility] [address] [id number] [place] [address]- 8087 Feb, [facility] [place] [facility] [address] [id number], [place] [address] Jan, [facility] [address] [id number] [place] [address]- 6[address] Jan, [facility] [place] [facility] [address] [id number] [place] [address]- 4748 Jan, [facility] [place] [facility] [address] [id number] [place] [address]- 5[address] Jan, [facility] [facility] [address] [id number] [place] [address]- 4125 Jan, [facility] [address] [id number] [place] [address]- 5772 Jan, [facility] [place] [facility] [address] [id number] [place] [address]- 7686 Jan, [facility] [address] [id number] [place] [address]- 8243 Jan, [facility] [place] [facility] [address] [id number] [place] [address]- 0965 Jan, [facility] [facility] [address] [id number] [place] [address]- 2777 Jan, [facility] [place] [facility] [address] [id number] [place] [address]- 6554 Jan, [facility] [place] [facility] [address] [id number] [place] [address]- 3989 Jan, [facility] [address] [id number], [place] [address] 385[address] Jan, [facility] [address] [id number] [place] [address]- 6795 Jan, [facility] [place] [facility] [address] [id number] [place] [address]- 2357 Jan, [facility] [address] [id number] [place] [address]- 4696 Jan, [facility] [address] [id number], [place] [address] 04 Jan, 2012 [facility] [facility] [address] [id number] [place] [address] 21 Dec, 2011 [facility] [address] [id number] [place] [address]- 1086 20 Dec, 2011 [facility] [place] [address] [id number] [place] [address] 2546 18 Dec, 2011 [facility] [place] [address] [id number] [place] [address] 2546 18 Dec, 2011 [facility] [address] [id number] [place] [address] 2546 10 Dec, 2011 [facility] [address] [id number] [place] [address]- 2756 10 Dec, 2011 [facility] [address] [id number] [place] [address]- 4388 10 Dec, 2011 [facility] [address] [id number] [place] [address]- 5357 07 Dec, 2011 [facility] [address] [id number] [place] [address]- 7048 30 Nov, 2011 [facility] [address] [id number] [place] [address]- 6064 Nov, [facility] [address] [id number] [place] [address]- 0153 Nov, [facility] [address] [id number] [place] [address]- 2548 Nov, [facility] [address] [id number] [place] [address] 2546 Nov, [facility] [address] [id number] [place] [address]- 0813 Nov, [facility] [address] [id number] [place] [address]- 254 30 Oct, 2011 [facility] [address] [id number] [place] [address]- 1829 30 Oct, 2011 [facility] [address] [id number] [place] [address]- 9111 Oct, [facility] [address] [id number] [place] [address]- 2076 Oct, [facility] [address] [id number] [place] [address]- 3009 Oct, [facility] [address] [id number] [place] [address]- 1723 Oct, [facility] [address] [id number] [place] [address]- 9125 Oct, [facility] [address] [id number] [place] [address]- 2926 Sep, [facility] [address] [id number] [place] [address]- 3878 Sep, [facility] [address] [id number] [place] [address]- 5297 Sep, [facility] [address] [id number] [place] [address]- 2164 Sep, [facility] [address] [id number] [place] [address]- 1135 Sep, [facility] [address] [id number] [place] [address]- 254 15 Sep, 2011 [facility] [address] [id number] [place] [address]- 2412 14 Sep, 2011 [facility] [address] [id number] [place] [address]- 9709 11 Sep, 2011 [facility] [address] [id number] [place] [address]- 7662 05 Sep, 2011 [facility] [address] [id number] [place] [address]- 6853 Sep, [facility] [address] [id number] [place] [address]- 2701 August, [facility] [address] [id number] [place] [address]- 2736 August, [facility] [address] [id number] [place] [address]- 6832 August, [facility] [address] [id number] [place] [address]- 8756 August, [facility] [address] [id number] [place] [address]- 3373 August, [facility] [address] [id number] [place] [address]- 4948 Jul, [facility] [address] [id number] [place] [address]- 2906 Jul, [facility] [address] [id number] [place] [address]- 0222 Jul, [facility] [address] [id number] [place] [address]- 2879 Jul, [facility] [address] [id number] [place] [address]- 2447 Jul, [facility] [address] [id number] [place] [address]- 7114 Jul, [facility] [address] [id number], [place] [address]- 7[address] Jul, [facility] [address] [id number] [place] [address]- 7087 Jun, [facility] [address] [id number] [place] [address]- 9457 Jun, [facility] [address] [id number] [place] [address]- 6445 Jun, [facility] [address] [id number], [place] [address]- 1225 Jun, [facility] [address] [id number] [place] [address]- 0072 Jun, [facility] [address] [id number] [place] [address]- 7816 May, [facility] [address] [id number] [place] [address]- 1496 May, [facility] [address] [id number] [place] [address]- 3769 May, [facility] [address] [id number] [place] [address]- 4173 May, [facility] [address] [id number] [place] [address]- 0216 May, [facility] [address] [facility] [id number] [place] [address]- 9153 May, [facility] [address] [id number] [place] [address]- 2186 Apr, [facility] [address] [facility] [id number] [place] [address]- 6686 Mar, [facility] [address] [facility] [id number] [place] [address]- 5136 Feb, [facility] [address] [id number] [place] [address] 2542 Feb, [facility] [address] [id number] [place] [address]- 2543 Feb, [facility] [address] [id number] [place] [address]- 8131 Feb, [facility] [address] [facility] [id number] [place] [address]- 9469 Jan, [facility] [address] [id number] [place] [address]- 6589 Jan, [facility] [address] [id number] [place] [address]- 2465 26 Jan, 2011 [facility] [address] [id number] [place] [address] 24 Jan, 2011 [facility] [address] [id number] [place] [address]- 0358 14 Jan, 2011 [facility] [address] [id number] [place] [address]- 2438 19 Dec, 2010 [facility] [address] [id number] [place] [address]- 4708 Oct, [facility] [address] [id number] [place] [address]- 9097 August, [facility] [address] [id number] [place] [address]- 1335 29 Mar, 2010 [facility] [address] [id number] [place] [address]- 8437 27 Mar, 2010 [facility] [address] [id number] [place] [address]- 0523 16 Mar, 2010 [facility] [address] [id number] [place] [address]- 7036 15 Mar, 2010 [facility] [address] [id number] [place] [address]- 5360 15 Mar, 2010 [facility] [address] [id number] [place] [address]- 8859 08 Mar, 2010 [facility] [address] [id number] [place] [address]- 8295 03 Mar, 2010 [facility] [address] [id number] [place] [address]- 3613 24 Feb, 2010 [facility] [address] [id number] [place] [address]- 2593 24 Feb, 2010 [facility] [address] [id number], [place] [address]- 7820 15 Feb, 2010 [facility] [address] [id number] [place] [address]- 4346 19 Jan, 2010 [facility] [address] [id number], [place] [address]- 3195 Jan, [facility] [address] [id number] [place] [address]- 9865 Jan, [facility] [address] [id number], [place] [address]- 0393 Nov, [facility] [address] [id number] [place] [address]- 4410 Sep, [facility] [address] [id number], [place] [address]- 1001 August, [facility] [address] [id number], [place] [address]- 9722 30 Mar, 2009 [facility] [address] [id number], [place] [address]- 9464 Mar, [facility] [address] [id number], [place] [address]- 2353 17 Feb, 2009 [facility] [address] [id number], [place] [address]- 4627 Feb, [facility] [address] [id number], [place] [address]- 5760 10 Feb, 2009 [facility] [address] [id number], [place] [address]- 9518 10 Feb, 2009 [facility] [address] [id number], [place] [address]- 7893 06 Feb, 2009 [facility] [address] [id number], [place] [address]- 9668 27 Jan, 2009 [facility] [address] [id number], [place] [address]- 0107 Jan, [facility] [address] [id number], [place] [address]- 5055 Jan, [facility] [address] [id number], [place] [address]- 7408 Jan, [facility] [id number], [place] [address] 2108 Nov, [facility] [id number], [place] [address]- 5454 Sep, [facility] [id number], [place] [address]- 9653 August, [facility] [id number] [place] [address]- 6858 Jul, [facility] [id number], [place] [address]- 7533 May, IMMUNIZATIONS No Known Immunizations SOCIAL HISTORY [...] Knee Surgery 07/16/17 Hospitalization History [facility]- left hand/wrist swelling 10/09/2017
--- OUTSIDE RECORDS SUMMARY | 2018-01-01 12:19 | XMS REPORT ---
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 Name Role Phone SENAIT DUNLAP Unavailable PROBLEMS Type Condition ICD9-CM Code HWE56-IR Code Onset Dates Condition Status SNOMED Code Problem History of common bile duct surgery Z98.89 Active 669947636 Problem Barretts esophagus K22.70 Active 801286454 Problem 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 Active 20145203 Problem Colon polyp K63.5 Active 96726026 Problem Bilateral low back pain without sciatica M54.5 Active 690041859 Problem Screening breast examination Z12.39 Active 672873923 Problem Postmenopausal Z78.0 Active 27657624 Problem Osteopenia M85.80 Active 058970166 Problem Cigarette nicotine dependence without complication F17.210 Active 36809551 Problem Type 2 diabetes mellitus with diabetic peripheral angiopathy without gangrene E11.51 Active 026154046 Problem Vascular dementia without behavioral disturbance F01.50 Active [id number] Problem Unspecified atherosclerosis of chilkoot arteries of extremities, unspecified extremity I70.209 Active 065687843858042 Problem Arthritis M19.90 Active 4231247 Problem Chronic atrial fibrillation I48.2 Active 910008350 Problem Chronic obstructive pulmonary disease with acute lower respiratory infection J44.0 Active 678051496 Problem Other chronic pancreatitis K86.1 Active 651044038 Problem Stress incontinence of urine N39.3 Active 57780308 Problem Controlled type 2 diabetes mellitus without complication, without long -term current use of insulin E11.9 Active 015502691 Problem Unspecified psychosis F29 Active 46874973 Problem Xeroderma Q80.9 Active 88994943 Problem COPD (chronic obstructive pulmonary disease) J44.9 Active 00982028 Problem Dementia without behavioral disturbance, unspecified dementia type F03.90 Active 07759161 Problem Gastroparesis K31.84 Active 385303385 Problem Type 2 diabetes mellitus with diabetic neuropathy, without long-term current use of insulin E11.40 Active 81252518 Problem Osteoporosis M81.0 Active 54214652 Problem Atherosclerosis of chilkoot artery of both lower extremities with intermittent claudication I70.213 Active 861751961899996 Problem Hyperlipidemia E78.5 Active 15622376 Problem Diabetic polyneuropathy associated with type 2 diabetes mellitus E11.42 Active 33564391 Problem Essential tremor G25.0 Active 53744284 Problem 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 Active 3979544489220 Problem Generalized anxiety disorder F41.1 Active 631234571 Problem Gastroesophageal reflux disease, esophagitis presence not specified K21.9 Active 232915007 Problem Coronary artery disease involving chilkoot coronary artery of chilkoot 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 I25.118 Active 4949520782859 Problem Postconcussion syndrome F07.81 Active 12851155 Problem Chronic pain syndrome G89.4 Active 988078225 Problem Migraine without aura and without status migrainosus, not intractable G43.009 Active 377353841 Problem Paroxysmal atrial fibrillation I48.0 Active 459130217 Problem Migraine without aura and with status migrainosus, not intractable G43.001 Active 778777264 Problem Cervicalgia M54.2 Active 7669626610502 Problem Acute exacerbation of chronic obstructive pulmonary disease (COPD) J44.1 Active 751222716 Problem Major depressive disorder, recurrent episode, moderate F33.1 Active 583748749 Problem Crohn''s disease without complication, unspecified gastrointestinal tract location K50.90 Active 49446535 Problem Chronic fatigue R53.82 Active 38426557 Problem Bipolar affective disorder, currently depressed, moderate F31.32 Active 734024559 ALLERGIES No Information ENCOUNTERS Encounter Location Date Diagnosis [facility] [place] [address] [facility] [id number] [address] Nov, [facility] [place] [id number] [address] Nov, [place] [id number] [address] Oct, [facility] [place] [id number], [place] [address] Oct, Bipolar affective disorder, currently depressed, moderate F31.32 ; Vascular dementia without behavioral disturbance F01.50 and Generalized anxiety disorder F41.1 [facility] [place] [id number] [place] [address] 70228- 0647 Oct, [facility] [place] [id number] [place] [address] 96290- 1821 Oct, [facility] [place] [id number] [place] [address] 32722- 9696 Oct, Edema of both legs R60.0 [facility] [place] [id number] [place] [address] 80673- 3513 Oct, [facility] [place] [id number] [place] [address] 76255- 8719 Sep, [facility] [place] [id number] [place] [address] 80375- 9575 Sep, [facility] [place] [id number] [place] [address] 81695- 6514 Sep, [facility] [place] [id number] [place] [address] 02673- 0559 Sep, Encounter for well woman exam with routine gynecological exam Z01.419 ; Screening for STDs (sexually transmitted diseases) Z11.3 ; Screening breast examination Z12.31 and Overweight (BMI 25.0-29.9) E66.3 [facility] [place] [address], [place] [address] Sep, [facility] [place] [id number] [address] 4102 Sep, [facility] [place] [id number] [place] [address] 59395- 5038 Sep, [facility] [place] [id number] [place] [address] 32936- 6372 August, [facility] [place] [id number] [address] 0134 August, [facility] [place] [address] [id number] [address] August, Type 2 diabetes mellitus with diabetic neuropathy, without long-term current use of insulin E11.40 and Sprain of right ankle, unspecified ligament, initial encounter S93.401A [facility] [place] [id number] [address] 1[address] August, [facility] [place] [id number] [place] [address] 59557- 4113 August, [facility] [place] [id number] [place] [address] 57834- 8216 August, [facility] [place] [id number] [place] [address] 01719- 8659 August, Gastroesophageal reflux disease, esophagitis presence not specified K21.9 [facility] [place] [id number] [place] [address] 35117- 0652 August, [facility] [place] [id number] [place] [address] 59948- 2944 August, [facility] [place] [id number] [place] [address] 16138- 7461 August, [facility] [place] [id number] [place] [address] 56250- 8184 August, Type 2 diabetes mellitus with diabetic neuropathy, without long-term current use of insulin E11.40 and Elevated liver enzymes R74.8 [facility] [place] [id number] [place] [address] 79799- 1522 Jul, [facility] [place] [id number] [place] [address] 35164- 4356 Jul, Cough R05 [facility] [place] [id number] [place] [address] 54556- 2097 Jul, [facility] [place] [address], [place] [address] 1811 Jul, [facility] [place] [id number] [place] [address] 68160- 3398 Jul, Bipolar affective disorder, currently depressed, moderate F31.32 ; Vascular dementia without behavioral disturbance F01.50 and Generalized anxiety disorder F41.1 [facility] [place] [id number] [place] [address] 31610- 1038 Jul, [facility] [place] [address] 69392- 1574 Jul, Type 2 diabetes mellitus with diabetic neuropathy, without long-term current use of insulin E11.40 and Elevated liver enzymes R74.8 [facility] [place] [address] 81475- 4111 Jul, [facility] [place] [id number] [place] [address] 91268- 5919 Jul, [facility] [place] [id number] [place] [address] 54139- 8438 Jul, [facility] [place] [id number] [place] [address] 51922- 8837 Jul, Post-menopausal Z78.0 [facility] [place] [address] 38604- 8439 Jul, Stress incontinence of urine N39.3 [facility] [place] [id number] [place] [address] 07746- 6436 Jul, [facility] [place] [id number] [place] [address] 86547- 8199 Jul, [facility] [place] [id number] [place] [address] 87710- 8645 Jul, Stress incontinence of urine N39.3 and Cough R05 [facility] [place] [id number] [place] [address] 18073- 6939 Jul, [facility] [place] [id number] [place] [address] 52931- 9309 Jul, [facility] [place] [id number] [place] [address] 62653- 9546 Jul, [facility] [place] [id number] [place] [address] 14220- 8847 Jul, Gastroesophageal reflux disease, esophagitis presence not specified K21.9 [facility] [place] [id number] [place] [address] 87927- 1973 Jun, Diabetic polyneuropathy associated with type 2 diabetes mellitus E11.42 [facility] [place] [id number] [place] [address] 32360- 3436 Jun, Diabetic polyneuropathy associated with type 2 diabetes mellitus E11.42 ; Coronary artery disease involving chilkoot coronary artery of chilkoot 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 I25.118 and Paroxysmal atrial fibrillation I48.0 [place] [id number] [place] [address] 17120- 9298 Jun, [place] [id number] [place] [address] 44935- 4344 Jun, [facility] [place] [id number] [place] [address] 15468 2547 Jun, Gastroenteritis K52.9 [facility] [place] [id number] [place] [address] 76594 2546 Jun, Gastroenteritis K52.9 [facility] [place] [id number] [place] [address] 91104 254 Jun, [facility] [place] [id number] [place] [address] 42238 2543 Jun, [facility] [place] [id number] [place] [address] 59058- 0382 Jun, Sprain of right ankle, unspecified ligament, initial encounter S93.401A ; Type 2 diabetes mellitus with diabetic neuropathy, without long-term current use of insulin E11.40 ; Atherosclerosis of chilkoot artery of both lower extremities with intermittent claudication I70.213 ; 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 ; Chronic atrial fibrillation I48.2 and Crohn''s disease without complication, unspecified gastrointestinal tract location K50.90 [facility] [id number] [place] [address] 89905 -0377 17 Jun, 2017 Cough R05 and Chronic obstructive pulmonary disease with acute lower respiratory infection J44.0 [facility] [place] [id number] [place] [address] 69398- 8660 Jun, [place] [id number] [place] [address] 80188- 5915 Jun, Coughing R05 ; Unspecified atherosclerosis of chilkoot arteries of extremities, unspecified extremity I70.209 ; Type 2 diabetes mellitus with diabetic peripheral angiopathy without gangrene E11.51 ; Crohn''s disease without complication, unspecified gastrointestinal tract location K50.90 ; Other chronic pancreatitis K86.1 and Chronic atrial fibrillation I48.2 [facility] IN [facility] [id number] [place] [address] 35628 -5005 Jun, [place] [id number] [place] [address] 59328- 5500 Jun, Bipolar affective disorder, currently depressed, moderate F31.32 ; Vascular dementia without behavioral disturbance F01.50 and Generalized anxiety disorder F41.1 [place] [id number] [place] [address] 61049- 5618 May, Generalized anxiety disorder F41.1 [place] [id number] [place] [address] 44346- 7550 May, [place] [id number] [place] [address] 94591- 7909 May, [place] [id number] [place] [address] 21025- 4290 May, Coughing R05 [place] [id number] [place] [address] 29663- 0218 09 May, 2017 [place] [id number] [place] [address] 65652- 1019 May, Bipolar affective disorder, currently depressed, moderate F31.32 ; Vascular dementia without behavioral disturbance F01.50 and Generalized anxiety disorder F41.1 [place] [id number] [place] [address] 58655- 6215 Apr, Generalized anxiety disorder F41.1 [place] [id number] [place] [address] 77906- 7575 Apr, [place] [id number] [place] [address] 38142- 1152 Apr, Vascular dementia without behavioral disturbance F01.50 ; Generalized anxiety disorder F41.1 and Bipolar affective disorder, currently depressed, moderate F31.32 [place] [id number] [place] [address] 68564- 5756 Apr, Generalized anxiety disorder F41.1 [facility] [id number] [place] [address] 70561 -4988 Apr, Cough R05 and Acute exacerbation of chronic obstructive pulmonary disease (COPD) J44.1 [place] [id number] [place] [address] 14376- 2353 Apr, [facility] IN [facility] [id number] [place] [address] 84812 -7524 Mar, Cough R05 and Cigarette nicotine dependence without complication F17.210 [place] [id number] [place] [address] 75691- 4334 Mar, [place] [id number] [place] [address] 82989- 0496 Feb, Generalized anxiety disorder F41.1 ; Major depressive disorder, recurrent episode, moderate F33.1 ; Vascular dementia without behavioral disturbance F01.50 and Unspecified psychosis F29 [place] [id number] [place] [address] 75687- 9518 Feb, [place] [id number] [place] [address] 16091- 1123 Feb, [place] [id number] [place] [address] 52657- 6103 Feb, Generalized anxiety disorder F41.1 [place] [id number] [place] [address] 65683- 7481 Feb, Generalized anxiety disorder F41.1 [place] [address] 60885- 1414 Feb, Dizziness R42 ; Chronic fatigue R53.82 ; Postconcussion syndrome F07.81 ; Fall, initial encounter W19.XXXA and Disorientation R41.0 [place] [address] 26449- 0342 Feb, Postconcussion syndrome F07.81 ; Injury of head, initial encounter S09.90XA ; Fall, initial encounter W19.XXXA ; Disorientation R41.0 and Acute cystitis with hematuria N30.01 [place] [address] 97656- 5817 Jan, Gastroesophageal reflux disease, esophagitis presence not specified K21.9 ; Post-menopausal Z78.0 and Migraine without aura and without status migrainosus, not intractable G43.009 [place] [id number] [place] [address] 81364- 6674 Jan, [place] [id number] [place] [address] 51293- 3044 Jan, Generalized anxiety disorder F41.1 ; Major depressive disorder, recurrent episode, moderate F33.1 ; Vascular dementia without behavioral disturbance F01.50 and Unspecified psychosis F29 [place] [address] 47018- 8718 Jan, Pneumonia of left lower lobe due to infectious organism J18.1 [place] [id number] [place] [address] 46935- 4504 Jan, Migraine without aura and with status migrainosus, not intractable G43.001 [facility] [address], [place] [address] 04 Jan, 2017 Migraine without aura and without status migrainosus, not intractable G43.009 [facility] [place] [id number] [place] [address] 81542- 8482 19 Dec, 2016 Hematoma T14.8 [facility] [place] [id number] [place] [address] 84536- 5460 Dec, [facility] [id number] [place] [address] 39733 -0867 Nov, Fatigue, unspecified type R53.83 [place] [id number] [place] [address] 25284- 4267 Nov, Scabies B86 and Coronary artery disease involving chilkoot coronary artery of chilkoot 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 I25.118 [place] [id number] [place] [address] 73354- 4585 Nov, [facility] [place] [id number] [place] [address] 50597- 1131 Nov, [place] [id number] [place] [address] 15972- 2839 Oct, [place] [id number] [place] [address] 36010- 7366 Oct, Generalized anxiety disorder F41.1 and Major depressive disorder, recurrent episode, moderate F33.1 [facility] [place] [id number] [place] [address] 17382- 5501 Oct, Cramp of both lower extremities R25.2 [place] [id number] [place] [address] 87192- 0202 Oct, Leg cramps R25.2 [place] [id number] [place] [address] 66708- 9177 Oct, Chronic pain syndrome G89.4 [place] [id number] [address]- 3574 17 Oct, 2016 [facility] [id number] [place] [address] 29853- 7135 14 Oct, 2016 [facility] [place] [id number] [place] [address] 18691- 9443 11 Oct, 2016 Routine gynecological examination Z01.419 and Screening for breast cancer Z12.31 [place] [id number] [place] [address] 26487- 9431 28 Sep, 2016 Diarrhea R19.7 [place] [id number] [place] [address] 84553- 8561 Sep, Back pain M54.9 [place] [id number] [place] [address] 50505- 9809 Sep, [place] [id number] [place] [address] 46559- 6174 Sep, [facility] [id number] [place] [address] 83219 -6252 August, Xeroderma Q80.9 [place] [id number] [place] [address] 12730- 8318 August, Dementia without behavioral disturbance, unspecified dementia type F03.90 [place] [id number] [place] [address] 36143- 0240 August, Chronic pain syndrome G89.4 [place] [id number] [place] [address] 24123- 1044 August, [facility] [place] [id number] [place] [address] 68846- 7711 August, Hyperlipidemia E78.5 ; Other fatigue R53.83 and Other specified hypotension I95.89 [facility] [address], [place] [address]108 August, Dysuria R30.0 ; Other fatigue R53.83 and Other specified hypotension I95.89 [facility] [place] [id number] [place] [address] 21710- 0557 August, [facility] [place] [address] 47089- 6129 Jul, Pain in left knee M25.562 and Gastroenteritis K52.9 [facility] [place] [address] 33775- 4447 Jul, [facility] [place] [address] 31358- 3975 Jul, Diarrhea R19.7 [facility] [address] 97646 -2213 Jul, Spider bite, accidental or unintentional, initial encounter T63.301A [place] [address] 57724- 2895 Jul, Primary osteoarthritis of right knee M17.11 and Arthritis M19.90 [facility] [place], [facility] [address] [address] Jul, Generalized anxiety disorder F41.1 and Major depressive disorder, recurrent episode, moderate F33.1 [facility] [place] [address] [place] [id number] [place] [phone] Jul, Type 2 diabetes mellitus with diabetic polyneuropathy E11.42 and Temporal headache R51 [facility] [place] [facility] [id number] [place] [address] 05260- 2627 Jul, Back pain M54.9 [facility] [place] [id number] [place] [address] 45771- 2211 Jul, [facility] [place] [address] 01473- 7354 Jul, [facility] [place] [id number] [place] [address] 34709- 1683 Jun, Nausea R11.0 [facility] [address] [place] [address] Jun, Acute suppurative otitis media of both ears without spontaneous rupture of tympanic membranes, recurrence not specified H66.003 and COPD exacerbation J44.1 [facility] [place] [address] 01615- 1821 Jun, Generalized anxiety disorder F41.1 [place] [address] 11062- 3157 16 Jun, 2016 [facility] [address] 19056 -6158 Jun, [facility] [address] [address] -2204 Jun, Shortness of breath R06.02 and COPD exacerbation J44.1 [place] [address] 23504- 5934 Jun, Eczema, unspecified type L30.9 [place] [address] 04228- 9359 Jun, [place] [address] 33999- 3017 May, [place] [id number] [place] [address] 53891- 0064 May, Muscle cramping R25.2 [place] [id number] [place] [address] 40929- 6069 May, [place] [address] 70171- 1301 Apr, Diarrhea R19.7 [place] [address] 91336- 6007 Apr, [place] [id number] [place] [address] 19937- 2396 Apr, Chronic pain syndrome G89.4 [place] [id number] [place] [address] 10126- 4916 16 Apr, 2016 Cramp of both lower extremities R25.2 and Vascular dementia without behavioral disturbance F01.50 [place] [address] 36873- 4087 Apr, Type 2 diabetes mellitus with diabetic polyneuropathy E11.42 and Cigarette nicotine dependence without complication F17.210 [place] [address] 34169- 9691 Mar, Generalized anxiety disorder F41.1 [place] [address] 77843- 0849 Feb, Generalized anxiety disorder F41.1 and Major depressive disorder, recurrent episode, moderate F33.1 [place] [address] 13763- 4400 Feb, [facility] [address] 61288 -3479 Feb, Dysuria R30.0 and Acute cystitis with hematuria N30.01 [place] [address] 58743- 1541 Jan, [place] [address] 41931- 4196 Jan, [place] [address] 54446- 6657 Jan, [place] [address] 40977- 8136 Jan, [facility] [address] 06167 -7525 Jan, Wasp sting, accidental or unintentional, initial encounter T63.461A [place] [address] 54221- 3947 06 Jan, 2016 Encounter for immunization Z23 [place] [address] 32835- 7487 Jan, [facility] [place] [id number] [place] [address] 5932 Jan, [facility] [place] [id number] [place] [address] 29627- 3918 28 Dec, 2015 Generalized anxiety disorder F41.1 and Major depressive disorder, recurrent episode, moderate F33.1 [facility] [place] [id number] [place] [address] 37854- 2897 21 Dec, 2015 Routine gynecological examination Z01.419 ; Postmenopausal Z78.0 ; Screening breast examination Z12.39 ; Osteopenia M85.80 and Breast cancer screening Z12.39 [facility] [place] [id number] [place] [address] 59178- 4106 20 Dec, 2015 [facility] [place] [id number] [place] [address] 55352- 8101 19 Dec, 2015 [facility] [place] [id number] [place] [address] 18325- 3645 16 Dec, 2015 [facility] [place] [id number] [place] [address] 35127- 5131 16 Dec, 2015 [facility] [place] [id number] [place] [address] 07961- 1853 14 Dec, 2015 [facility] [place] [id number] [place] [address] 68298- 0672 Dec, [facility] [place] [id number] [place] [address] 80985- 6624 Nov, [facility] [id number] [place] [address] 27473 -0955 Nov, Cough R05 ; Other viral agents as the cause of diseases classified elsewhere B97.89 and Acute upper respiratory infection, unspecified J06.9 [facility] [place] [id number], [place] [address]- 6821 Nov, [facility] [place] [id number] [place] [address] 80684- 0007 Nov, [facility] [place] [id number], [place] [address]- 1066 Nov, [facility] [place] [id number], [place] [address]- 3909 Nov, [facility] [place] [id number], [place] [address]- 4020 Nov, [facility] [place] [id number] [place] [address] 05736- 3795 Oct, [facility] [place] [id number] [place] [address] 69987- 9159 Oct, [facility] [place] [id number] [address]- 9330 Oct, [facility] [place] [id number] [place] [address] 90641- 4170 Oct, Chronic pain syndrome G89.4 [facility] [place] [id number], [place] [address]- 4220 Sep, Generalized anxiety disorder F41.1 and Major depressive disorder, recurrent episode, moderate F33.1 [facility] [place] [id number], [place] [address]- 0787 Sep, [facility] [place] [id number], [place] [address]- 9043 Sep, [facility] [place] [id number], [place] [address]- 4717 14 Sep, 2015 Generalized anxiety disorder F41.1 [facility] [place] [id number], [place] [address]- 8385 13 Sep, 2015 Cramp of both lower extremities R25.2 and Cervicalgia M54.2 [facility] [place] [id number], [place] [address]- 9056 06 Sep, 2015 Generalized anxiety disorder F41.1 [facility] [place] [id number] [address]- 9475 Sep, [facility] [id number] [place] [address] 09193 -1807 August, Rash R21 ; Itching L29.9 and Allergic response, subsequent encounter T78.40XD [facility] [place] [id number] [place] [address] 10133- 7646 August, Primary insomnia F51.01 [facility] [id number] [place] [address] 29772 -5490 August, Rash R21 ; Itching L29.9 and Allergic response, initial encounter T78.40XA [place] [id number] [place] [address] 96825- 1269 August, [place] [id number] [place] [address] 13213- 7121 August, Cramp of both lower extremities R25.2 [place] [id number] [place] [address] 42571- 6244 August, Back pain M54.9 [place] [id number] [place] [address] 28360- 4659 August, [place] [id number] [place] [address] 55451- 3507 August, [facility] [id number] [place] [address] 02451 -9543 August, Cramp of both lower extremities R25.2 [place] [id number] [place] [address] 28642- 3988 August, [place] [id number] [place] [address] 55280- 8137 August, Syncope R55 ; Paroxysmal atrial fibrillation I48.0 ; Dementia without behavioral disturbance, unspecified dementia type F03.90 and Chronic pain syndrome G89.4 [place] [id number] [place] [address] 23318- 1402 August, Type 2 diabetes mellitus with diabetic polyneuropathy E11.42 and Syncope R55 [facility] [place] [id number] [place] [address] 06846- 6401 Jul, [facility] [place] [id number] [place] [address] 20922- 5640 Jul, [facility] [place] [id number] [place] [address] 92215- 0633 Jul, [facility] [place] [id number] [place] [address] 75729- 1304 Jul, [facility] [place] [id number] [place] [address] 36079- 8237 Jul, [facility] [place] [id number] [place] [address] 25279- 7031 Jul, UTI (urinary tract infection) N39.0 [facility] [place] [id number] [place] [address] 71390- 1583 Jul, [facility] [place] [id number] [place] [address] 91141- 1182 Jul, Major depressive disorder, recurrent episode, moderate F33.1 and Generalized anxiety disorder F41.1 [facility] [place] [id number] [place] [address] 15233- 9367 Jul, Generalized anxiety disorder F41.1 [facility] [place] [id number] [place] [address] 77565- 0784 Jul, Diarrhea R19.7 [facility] [place] [id number] [place] [address] 43547- 7116 Jul, [facility] [place] [id number] [place] [address] 48507- 6703 Jun, [facility] [place] [id number] [place] [address] 29333- 5040 Jun, Eczema L30.9 [facility] [place] [id number], [place] [address]- 7967 Jun, [facility] [place] [id number], [place] [address]- 2656 Jun, COPD (chronic obstructive pulmonary disease) J44.9 [facility] [place] [id number], [place] [address]- 9676 Jun, [facility] [place] [id number] [place] [address] 17397- 3430 Jun, Major depressive disorder, recurrent episode, moderate F33.1 and Generalized anxiety disorder F41.1 [facility] [place] [id number], [place] [address]- 5616 May, [facility] [place] [id number], [place] [address]- 2900 May, UTI (urinary tract infection) N39.0 [facility] [place] [id number], [place] [address]- 5702 May, [facility] [place] [id number], [place] [address]- 8601 May, [facility] [place] [id number], [place] [address]- 4731 May, [facility] [place] [id number], [place] [address]- 1696 May, [facility] [place] [id number], [place] [address]- 5410 Apr, Major depressive disorder, recurrent episode, moderate F33.1 and Generalized anxiety disorder F41.1 [facility] [place] [id number], [place] [address]- 6008 Apr, COPD (chronic obstructive pulmonary disease) J44.9 [facility] [place] [id number], [place] [address]- 9406 Apr, [facility] [place] [id number] [place] [address]- 1647 Apr, Atrial flutter I48.92 [facility] [place] [id number] [place] [address] 72056- 6731 Apr, [facility] [place] [id number] [place] [address] 90148- 8727 Apr, [facility] [place] [id number] [place] [address] 99540- 1058 Mar, [facility] [place] [id number] [place] [address] 23164- 2650 Mar, [facility] [place] [id number] [place] [address] 58024- 7597 Mar, [facility] [place] [id number] [place] [address] 30409- 8738 Mar, Hyperlipidemia E78.5 ; Type 2 diabetes mellitus with diabetic polyneuropathy E11.42 ; Major depressive disorder, recurrent episode, moderate F33.1 and Chronic pain syndrome G89.4 [facility] [place] [id number] [place] [address] 50502- 9130 Mar, [facility] [place] [id number] [place] [address] 31086- 7628 Mar, [facility] [place] [id number] [place] [address] 03481- 6364 Mar, [facility] [place] [id number] [place] [address] 97267- 8957 Mar, [facility] [place] [id number] [place] [address] 72825- 7403 Feb, COPD (chronic obstructive pulmonary disease) J44.9 and Back pain M54.9 [facility] [place] [id number], [place] [address]- 5895 Feb, [facility] [place] [id number] [place] [address] 20395- 4204 Feb, [facility] [place] [id number], [place] [address]- 5305 Feb, [facility] [place] [id number] [place] [address] 69238- 3378 Feb, [facility] [place] [id number], [place] [address]- 1068 Feb, [facility] [place] [id number] [place] [address] 42271- 7632 Feb, [facility] [place] [id number] [place] [address] 84967- 8079 Feb, [facility] [place] [id number] [place] [address] 61626- 7875 Feb, [facility] [place] [id number] [place] [address] 75010- 1603 Feb, Diabetes E11.9 ; Back pain M54.9 and COPD (chronic obstructive pulmonary disease) J44.9 [facility] [place] [id number] [place] [address] 30563- 7275 Jan, [facility] [place] [id number] [place] [address] 72595- 6609 Jan, Major depression, recurrent F33.9 and Generalized anxiety disorder F41.1 [facility] [place] [id number] [place] [address] 15950- 0831 Jan, Chronic pain G89.29 [facility] [place] [id number], [place] [address]- 9883 Jan, [facility] [place] [id number] [place] [address] 13106- 3939 Jan, [facility] [place] [id number] [place] [address] 74954- 0236 Jan, [facility] [place] [id number], [place] [address]- 6624 Jan, [facility] [place] [id number] [place] [address] 18313- 9623 Jan, Nicotine dependence F17.200 [facility] [place] [address] 89969- 2804 Jan, Nicotine dependence F17.200 and Back pain M54.9 [facility] [place] [id number] [place] [address] 39893- 3732 Jan, [facility] [place] [id number] [place] [address] 88753- 6707 28 Dec, 2014 [facility] [place] [id number] [place] [address] 91475- 8916 25 Dec, 2014 Anxiety, generalized 300.02 and Major depression, recurrent 296.30 [facility] [place] [id number] [place] [address] 04515- 2153 24 Dec, 2014 [facility] [place] [id number] [place] [address] 66719- 5206 21 Dec, 2014 [facility] [place] [id number] [place] [address] 42745- 2587 17 Dec, 2014 [facility] [place] [id number] [place] [address] 02602- 4802 15 Dec, 2014 [facility] [place] [id number] [place] [address] 14045- 2662 14 Dec, 2014 [facility] [place] [id number] [place] [address] 85487- 4335 11 Dec, 2014 [facility] [place] [id number] [place] [address] 81826- 2420 10 Dec, 2014 [facility] [place] [id number] [place] [address] 01442- 0766 08 Dec, 2014 Skin tear 879.8 [facility] [place] [id number] [place] [address] 34005- 0806 08 Dec, 2014 Routine gynecological examination V72.31 ; Breast cancer screening V76.10 and Family history of breast cancer in first degree relative V16.3 [facility] [place] [id number] [place] [address] Dec, [facility] [place] [id number] [place] [address] [id number]- 2306 Dec, [facility] [place] [id number] [address] Nov, [facility] [place] [id number] [place] [address] [id number]- 3531 Nov, [facility] [place] [id number] [place] [address] 18097- 3598 Nov, Poor balance 781.99 and Vascular dementia, uncomplicated 290.40 [facility] [place] [id number] [place] [address] 23075- 1944 Nov, [facility] [place] [id number] [place] [address] 44884- 7244 Nov, Major depression, recurrent 296.30 and Anxiety, generalized 300.02 [facility] [place] [id number] [place] [address] 77934- [phone] Nov, [facility] [place] [id number] [place] [address] 21270- 5022 Nov, [facility] [place] [id number] [place] [address] Nov, [facility] [place] [id number] [place] [address] 42229- 6375 Nov, [facility] [place] [id number] [place] [address] Nov, Vascular dementia, uncomplicated 290.40 and Lumbago 724.2 [facility] [place] [id number] [place] [address] Nov, [facility] [place] [id number] [place] [address] 29705- 8576 Nov, [facility] [place] [id number] [place] [address] Nov, [facility] [place] [id number] [place] [address] Oct, [facility] [place] [id number] [place] [address] Oct, [facility] [place] [id number] [place] [address] [phone]- 5757 Oct, [facility] [place] [id number] [place] [address] Oct, COPD (chronic obstructive pulmonary disease) 496 and Hyperlipidemia 272.4 [facility] [place] [id number] [place] [address] Oct, Major depression, recurrent 296.30 and Anxiety, generalized 300.02 [facility] [facility] [place] [id number], [place] [address] Oct, [facility] [place] [id number], [place] [address] Oct, [facility] [place] [id number], [place] [address] Oct, [facility] [place] [id number], [place] [address] Sep, Lumbago 724.2 and Anxiety state, unspecified 300.00 [facility] [place] [id number], [place] [address] Sep, [facility] [place] [id number], [place] [address] Sep, [facility] [place] [id number], [place] [address] August, [facility] [place] [address] [id number], [place] [address] August, Major depression, recurrent 296.30 ; Anxiety, generalized 300.02 and No condition on [place] II V71.09 [facility] [address] [id number] [place] [address] August, [facility] [address] [facility] [id number] [place] [address] August, [facility] [id number], [place] [address] Jul, [facility] [address] [facility] [id number] [place] [address]- 75[address] Jul, [facility] [id number] [place] [address] Jul, [facility] [address] [id number] [place] [address]- [address] Jun, [facility] [id number] [place] [address]- [address] Jun, [facility] [address] [id number], [place] [address] Jun, [facility] [id number] [place] [address]- [address] Jun, [facility] [address] [id number], [place] [address] 2608 Jun, [facility] [id number] [place] [address]- 2524 Jun, [facility] [address] [id number], [place] [address] 80[address] 23 Jun, 2014 [facility] [id number] [address] 17 Jun, 2014 [facility] [address] [facility] [id number] [address] Jun, [facility] [id number] [address] Jun, [facility] [place] [facility] [address] [id number] [place] [address]- 3696 10 Jun, 2014 [facility] [place] [facility] [address] [id number] [place] [address]- 1264 10 Jun, 2014 [facility] [place] [facility] [address] [id number] [place] [address]- 0213 07 Jun, 2014 [facility] [place] [facility] [address] [id number] [place] [address]- 9838 07 Jun, 2014 [facility] [place] [facility] [address] [id number] [place] [address]- 7115 Jun, [facility] [place] [facility] [address] [id number] [place] [address]- 6966 Jun, 2014 [facility] [place] [facility] [address] [id number] [place] [address]- 6515 May, [facility] [place] [facility] [address] [id number] [place] [address]- 8462 May, 2014 [facility] [place] [facility] [address] [id number] [place] [address]- 9255 May, [facility] [place] [facility] [address] [facility] [id number] [place] [address]- 1708 May, 2014 [facility] [place] [facility] [address] [facility] [id number] [place] [address]- 0204 May, 2014 [facility] [place] [facility] [address] [id number] [place] [address]- 5198 May, 2014 [facility] [place] [facility] [address] [id number] [place] [address]- 2540 May, 2014 [facility] [place] [facility] [address] [id number] [place] [address]- 1482 12 May, 2014 [facility] [place] [facility] [address] [facility] [id number] [place] [address]- 0335 May, 2014 [facility] [place] [facility] [address] [facility] [id number] [place] [address]- 0329 May, 2014 [facility] [place] [facility] [address] [id number] [place] [address]- 5226 May, 2014 [facility] [place] [facility] [address] [id number] [place] [address]- 8106 May, 2014 [facility] [place] [facility] [address] [id number] [place] [address]- 9966 May, 2014 [facility] [place] [facility] [address] [id number] [place] [address]- 4048 May, [facility] [place] [facility] [address] [id number] [place] [address]- 0199 Apr, [facility] [place] [facility] [address] [id number] [place] [address]- 2788 Apr, [facility] [place] [facility] [address] [id number] [place] [address]- 5814 Apr, [facility] [place] [facility] [address] [id number] [place] [address]- 2830 Apr, [facility] [place] [facility] [address] [id number] [place] [address]- 2177 Apr, [facility] [place] [facility] [address] [id number] [place] [address]- 5503 Apr, [facility] [place] [facility] [address] [id number] [place] [address]- 7934 Apr, [facility] [place] [facility] [address] [id number] [place] [address]- 3168 Apr, [facility] [place] [facility] [address] [id number] [place] [address]- 1040 Apr, [facility] [place] [facility] [address] [id number] [place] [address]- 7876 Apr, [facility] [place] [facility] [address] [id number] [place] [address]- 6620 Apr, [facility] [place] [facility] [address] [id number] [place] [address]- 5523 Apr, [facility] [place] [facility] [address] [id number] [place] [address]- 1940 Mar, [facility] [place] [facility] [address] [id number] [place] [address]- 1148 31 Mar, 2014 [facility] [place] [facility] [address] [id number] [place] [address]- 8840 30 Mar, 2014 [facility] [place] [facility] [address] [id number] [place] [address]- 0920 30 Mar, 2014 [facility] [place] [facility] [address] [id number] [place] [address]- 6971 Mar, [facility] [place] [facility] [address] [id number] [place] [address]- 4633 Mar, [facility] [place] [facility] [address] [id number] [place] [address]- 6726 Mar, [facility] [place] [facility] [address] [id number] [place] [address]- 9447 19 Mar, 2014 [facility] [place] [facility] [address] [id number] [place] [address]- 2086 15 Mar, 2014 [facility] [place] [facility] [address] [id number] [place] [address]- 5014 15 Mar, 2014 [facility] [place] [facility] [address] [id number] [place] [address]- 6036 15 Mar, 2014 [facility] [place] [facility] [address] [id number] [place] [address]- 4294 15 Mar, 2014 [facility] [place] [facility] [address] [id number] [place] [address]- 4817 15 Mar, 2014 [facility] [place] [facility] [address] [id number] [place] [address]- 5173 15 Mar, 2014 [facility] [place] [facility] [address] [id number] [place] [address]- 9644 Mar, [facility] [place] [facility] [address] [id number] [place] [address]- 1883 Mar, [facility] [place] [facility] [address] [id number] [place] [address]- 0218 Mar, [facility] [place] [facility] [address] [id number] [place] [address]- 5144 Mar, [facility] [place] [facility] [address] [id number] [place] [address]- 8777 Mar, [facility] [place] [facility] [address] [id number] [place] [address]- 6880 Mar, [facility] [place] [facility] [address] [id number] [place] [address]- 8837 Feb, [facility] [place] [facility] [address] [id number] [place] [address]- 9809 Feb, [facility] [place] [facility] [address] [id number] [place] [address]- 9958 Feb, [facility] [place] [facility] [address] [id number] [place] [address]- 9150 Feb, [facility] [place] [facility] [address] [id number] [place] [address]- 1097 Feb, [facility] [place] [facility] [address] [id number] [place] [address]- 7447 Feb, [facility] [place] [facility] [address] [id number], [place] [address]- 0000 Feb, [facility] [place] [facility] [address] [id number] [place] [address]- 4583 Feb, [facility] [place] [facility] [address] [id number] [place] [address]- 8633 Feb, [facility] [place] [facility] [address] [id number], [place] [address]- 3805 Feb, [facility] [place] [facility] [address] [id number] [place] [address]- 4396 Feb, [facility] [place] [facility] [address] [id number] [place] 3748 Feb, [facility] [place] [facility] [address] [id number] [place] [address] Feb, [facility] [place] [facility] [address] [id number] [place] [address]- 2953 Feb, [facility] [place] [facility] [address] [id number] [place] [address]- 0126 Feb, [facility] [place] [facility] [address] [id number] [place] [address]- 4286 Feb, [facility] [place] [facility] [address] [id number] [place] [address]- 7860 Feb, [facility] [place] [facility] [address] [id number] [place] [address]- 6607 Jan, [facility] [place] [facility] [address] [id number] [place] [address]- 2822 Jan, [facility] [place] [facility] [address] [id number] [place] [address]- 2605 Jan, [facility] [place] [facility] [address] [id number] [place] [address]- 7241 Jan, [facility] [place] [facility] [address] [id number] [place] [address]- 6642 Jan, [facility] [place] [facility] [address] [id number] [place] [address]- 9441 Jan, [facility] [place] [facility] [address] [id number] [place] [address]- 9719 16 Jan, 2014 [facility] [place] [facility] [address] [id number] [place]42 16 Jan, 2014 [facility] [place] [facility] [address] [id number] [place] [address]- 8750 Jan, [facility] [place] [facility] [address] [id number] [place] [address]- 2206 Jan, [facility] [place] [facility] [address] [id number] [place] [address]- 2017 Jan, [facility] [place] [facility] [address] [id number] [place] [address]- 6140 Dec, [facility] [place] [facility] [address] [id number] [place] [address]- 1885 Dec, [facility] [place] [facility] [address] [id number] [place] [address]- 0749 Nov, [facility] [place] [facility] [address] [id number] [place] [address]- 7645 Nov, [facility] [place] [facility] [address] [id number] [place] [address]- 0578 Nov, [facility] [place] [facility] [address] [id number] [place] [address]- 9082 Nov, [facility] [place] [facility] [address] [id number] [place] [address]- 0602 Nov, [facility] [place] [facility] [address] [id number] [place] [address]- 6133 Nov, [facility] [place] [facility] [address] [id number], [place] [address]- 4954 Nov, [facility] [place] [facility] [address] [id number], [place] [address]- 6808 Oct, [facility] [place] [facility] [address] [id number] [place] [address]- 1547 Oct, [facility] [place] [facility] [address] [id number], [place] [address]- 2280 Oct, [facility] [place] [facility] [address] [id number] [place] 0743 Oct, [facility] [place] [facility] [address] [id number] [place] [address]- 5990 30 Sep, 2013 [facility] [place] [facility] [address] [id number] [place] [address]- 8238 Sep, [facility] [place] [facility] [address] [id number] [place] [address]- 6276 Sep, [facility] [place] [facility] [address] [id number] [place] [address]- 3867 Sep, [facility] [place] [facility] [address] [id number] [place] [address]- 0078 Sep, [facility] [place] [facility] [address] [id number] [place] [address]- 9696 Sep, [facility] [place] [facility] [address] [id number] [place] [address]- 3059 Sep, [facility] [place] [facility] [address] [id number] [place] [address]- 8917 Sep, [facility] [place] [facility] [address] [id number] [place] [address]- 8279 Sep, [facility] [place] [facility] [address] [id number] [place] [address]- 0626 Sep, [facility] [place] [facility] [address] [id number] [place] [address]- 0603 Sep, [facility] [place] [facility] [address] [id number] [place] [address]- 2832 Sep, [facility] [place] [facility] [address] [id number] [place] [address]- 5955 Sep, [facility] [place] [facility] [address] [id number] [place] [address]- 6252 Sep, [facility] [place] [facility] [address] [id number] [place] [address]- 8888 August, [facility] [place] [facility] [address] [id number] [place] [address]- 0280 August, [facility] [place] [facility] [address] [id number] [place] [address]- 8534 August, [facility] [address] [id number] [place] [address]- 4014 August, [facility] [address] [id number] [place] [address]- 4942 August, [facility] [address] [id number] [place] [address]- 4478 August, [facility] [address] [id number] [place] [address]- 9923 August, [facility] [address] [id number] [place] [address]- 5916 August, [facility] [address] [id number] [place] [address]- 1747 August, [facility] [address] [id number] [place] [address]- 0206 August, [facility] [address] [id number] [place] [address]- 8785 August, [facility] [address] [id number] [place] [address]- 6609 August, [facility] [address] [id number] [place] [address]- 2301 August, [facility] [address] [id number] [place] [address]- 4493 August, [facility] [place] [facility] [address] [id number] [place] [address]- 5158 August, [facility] [place] [facility] [address] [id number] [place] [address]- 5825 August, [facility] [place] [facility] [address] [id number] [place] [address]- 1712 August, [facility] [place] [facility] [address] [id number] [place] [address]- 9963 August, [facility] [place] [facility] [address] [id number] [place] 0720 August, [facility] [place] [facility] [address] [id number] [place] [address]- 5064 Jul, [facility] [place] [facility] [address] [id number] [place] [address]- 9380 Jul, [facility] [place] [facility] [address] [id number] [place] [address]- 5335 Jul, [facility] [place] [facility] [address] [id number] [place] [address]- 5403 Jul, [facility] [place] [facility] [address] [id number] [place] [address]- 1985 Jun, [facility] [place] [facility] [address] [id number] [place] [address]- 8558 Jun, [facility] [place] [facility] [address] [id number] [place] [address]- 4868 Jun, [facility] [place] [facility] [address] [id number] [place] [address]- 2169 Jun, [facility] [place] [facility] [address] [id number] [place] [address]- 2154 Jun, [facility] [place] [facility] [address] [id number] [place] [address]- 7930 Jun, [facility] [place] [facility] [address] [id number] [place] [address]- 2382 Jun, [facility] [place] [facility] [address] [id number] [place] [address]- 7689 Jun, [facility] [place] [facility] [address] [id number] [place] [address]- 3341 Jun, [facility] [place] [facility] [address] [id number] [place] [address]- 2483 Jun, [facility] [place] [facility] [address] [id number] [place] [address]- 1018 May, [facility] [place] [facility] [address] [id number] [place] [address]- 0926 May, [facility] [place] [facility] [address] [id number] [place] [address]- 1766 May, [facility] [place] [facility] [address] [id number] [place] [address]- 5994 May, [facility] [place] [facility] [address] [id number] [place] [address]- 2545 May, [facility] [place] [facility] [address] [id number] [place] [address]- 1816 May, [facility] [place] [facility] [address] [facility] [id number] [place] [address]- 9126 May, [facility] [place] [facility] [address] [facility] [id number] [place] [address]- 9015 May, [facility] [place] [facility] [address] [id number] [place] [address]- 0771 May, [facility] [place] [facility] [address] [facility] [id number] [place] [address]- 1278 May, [facility] [place] [facility] [address] [facility] [id number] [place] [address]- 6049 18 May, 2013 [facility] [place] [facility] [address] [facility] [id number] [place] [address]- 0708 17 May, 2013 [facility] [place] [facility] [address] [facility] [id number] [place] [address]- 2546 May, [facility] [place] [facility] [address] [id number] [place] [address]- 4670 May, [facility] [place] [facility] [address] [facility] [id number] [place] [address]- 9346 10 May, 2013 [facility] [place] [facility] [address] [facility] [id number] [place] [address]- 2761 07 May, 2013 [facility] [address] [id number] [place] [address]- 6487 07 May, 2013 [facility] [address] [id number] [place] [address]- 1700 17 Apr, 2013 [facility] [address] [id number] [place] [address]- 2132 Apr, [facility] [address] [id number] [place] [address]- 1969 Apr, [facility] [address] [id number] [place] [address] Apr, [facility] [address] [id number] [place] [address] Apr, [facility] [address] [id number] [place] [address] Apr, [facility] [address] [id number] [place] [address] Apr, [facility] [address] [id number] [place] [address] Mar, [facility] [address] [id number] [place] [address] Mar, [facility] [address] [id number] [place] [address] Mar, [facility] [address] [id number] [place] [address] Mar, [facility] [address] [id number] [place] [address] Mar, [facility] [address] [id number] [place] [address] Mar, [facility] [address] [id number] [place] [address] Mar, [facility] [place] [facility] [address] [id number] [place] [address] Mar, [facility] [place] [facility] [address] [id number] [place] [address] Mar, [facility] [place] [facility] [address] [id number] [place] [address] Mar, [facility] [place] [facility] [address] [id number] [place] [address] Mar, [facility] [address] [id number] [place] [address] Feb, [facility] [place] [facility] [address] [id number] [place] [address] Feb, [facility] [address] [id number] [place] [address]- [address] Feb, [facility] [address] [id number] [place] [address] 20 Feb, 2013 [facility] [place] [facility] [address] [id number] [place] [address] Feb, [facility] [place] [facility] [address] [id number] [place] [address]- [address] 19 Feb, 2013 [facility] [place] [facility] [address] [id number] [place] [address] 15 Feb, 2013 [facility] [place] [facility] [address] [id number], [place] [address] 14 Feb, 2013 [facility] [place] [facility] [address] [id number] [place] [address] 14 Feb, 2013 [facility] [place] [facility] [address] [id number], [place] [address] 13 Feb, 2013 [facility] [place] [facility] [address] [id number], [place] [address] 13 Feb, 2013 [facility] [place] [facility] [address] [id number], [place] [address] Feb, [facility] [place] [facility] [address] [id number] [place] [address] 12[address] Feb, [facility] [place] [facility] [address] [id number] [place] [address] Feb, [facility] [place] [facility] [address] [id number] [place] [address] Feb, [facility] [place] [facility] [address] [id number] [place] [address] Feb, [facility] [place] [facility] [address] [id number] [place] [address]- [address] Jan, [facility] [place] [facility] [address] [id number] [place] [address] Jan, [facility] [place] [facility] [address] [id number] [place] [address] Jan, [facility] [place] [facility] [address] [id number] [place] [address]- [address] Jan, [facility] [place] [facility] [address] [id number] [place] [address] 93[address] Jan, [facility] [place] [facility] [address] [id number] [place] [address] Jan, [facility] [place] [facility] [address] [id number], [place] [address] Jan, [facility] [place] [facility] [address] [id number], [place] [address] Jan, [facility] [place] [facility] [address] [id number] [place] [address]- [address] 10 Jan, 2013 [facility] [place] [facility] [address] [id number] [place] [address]- [address] 27 Dec, 2012 [facility] [place] [facility] [address] [id number] [place] [address] 20 Dec, 2012 [facility] [place] [facility] [address] [id number] [place] [address]- [address] 19 Dec, 2012 [facility] [place] [facility] [address] [id number] [place] [address]- [address] 10 Dec, 2012 [facility] [place] [facility] [address] [id number] [place] [address]- [address]36 04 Dec, 2012 [facility] [place] [facility] [address] [id number] [place] [address]- [address] 03 Dec, 2012 [facility] [place] [facility] [address] [id number] [place] [address] Nov, [facility] [place] [facility] [address] [id number] [place] [address]- [address] Nov, [facility] [place] [facility] [address] [id number] [place] [address] Nov, [facility] [place] [facility] [address] [id number] [place] [address] Nov, [facility] [place] [facility] [address] [id number] [place] [address] Nov, [facility] [place] [facility] [address] [id number] [place] [address]- [address] Nov, [facility] [place] [facility] [address] [id number] [place] [address]- 75[address] Nov, [facility] [place] [facility] [address] [id number] [place] [address]- 8693 Nov, [facility] [place] [facility] [address] [id number] [place] [address]- [address] 14 Nov, 2012 [facility] [place] [facility] [address] [id number] [place] [address] Nov, [facility] [place] [facility] [address] [id number] [place] [address]46 Oct, [facility] [place] [facility] [address] [id number] [place] [address]- [address]896 Oct, [facility] [place] [facility] [address] [id number] [place] [address]- [address]90 Oct, [facility] [place] [facility] [address] [id number] [place] [address]- [address]286 Oct, [facility] [place] [facility] [address] [id number] [place] [address]- 8700 Oct, [facility] [place] [facility] [address] [id number] [place] [address]- [address]346 Oct, [facility] [place] [facility] [address] [id number] [place] [address]- 4738 Oct, [facility] [place] [facility] [address] [id number] [place] [address]- [address]129 Oct, [facility] [place] [facility] [address] [id number] [place] [address]- [address] Sep, [facility] [place] [facility] [address] [id number] [place] [address] Sep, [facility] [place] [facility] [address] [id number] [place] [address] Sep, [facility] [place] [facility] [address] [id number] [place] [address]9 Sep, [facility] [place] [facility] [address] [id number] [place] [address] 9[address] Sep, [facility] [place] [facility] [address] [id number], [place] [address] Sep, [facility] [place] [facility] [address] [id number] [place] [address]- [address] Sep, [facility] [place] [facility] [address] [id number] [place] [address]- 68[address] Sep, [facility] [place] [facility] [address] [id number] [place] [address]- 1564 August, [facility] [place] [facility] [address] [id number] [place] [address] 1275 August, [facility] [address] [id number] [place] [address] August, [facility] [address] [id number] [place] [address] 7395 August, [facility] [address] [id number] [place] [address]- 1463 August, [facility] [address] [id number] [place] [address]- 8407 Jul, [facility] [address] [id number] [place] [address]- 8674 Jul, [facility] [address] [id number] [place] [address]- 4145 Jul, [facility] [address] [id number] [place] [address]- 0930 Jul, [facility] [address] [id number] [place] [address]- 4269 Jul, [facility] [address] [id number] [place] [address]- 4826 18 Jun, 2012 [facility] [address] [id number] [place] [address]- 8319 18 Jun, 2012 [facility] [address] [id number] [place] [address]- 5094 15 Jun, 2012 [facility] [address] [id number] [place] [address]- 5803 14 Jun, 2012 [facility] [place] [facility] [address] [id number] [place] [address]- 1601 12 Jun, 2012 [facility] [place] [facility] [address] [id number] [place] [address]- 3862 08 Jun, 2012 [facility] [address] [id number] [place] [address]- 9073 08 Jun, 2012 [facility] [place] [facility] [address] [id number] [place] [address]- 2507 Jun, [facility] [address] [id number] [place] [address]- 5306 Jun, [facility] [address] [id number] [place] [address]- 5566 May, [facility] [place] [facility] [address] [id number] [place] [address]- 0316 May, [facility] [address] [id number] [place] [address]- 7012 May, [facility] [address] [id number] [place] [address]- 5146 May, [facility] [place] [facility] [address] [id number] [place] [address]- 2404 Apr, [facility] [place] [facility] [address] [id number] [place] [address]- 3424 Apr, [facility] [address] [id number] [place] [address]- 7136 Apr, [facility] [address] [id number] [place] [address]- 2941 Apr, [facility] [place] [facility] [address] [id number] [place] [address]- 5603 Apr, [facility] [place] [facility] [address] [id number] [place] [address]- 0473 Apr, [facility] [place] [facility] [address] [id number] [place] [address]- 5694 Apr, [facility] [place] [facility] [address] [id number] [place] [address]- 0626 Mar, [facility] [address] [place] [id number] Mar, [facility] [place] [facility] [address] [id number] [place] [address]- 2571 Mar, [facility] [place] [facility] [address] [id number] [place] [address]- 3424 Mar, [facility] [place] [facility] [address] [id number] [place] [address]- 1476 Mar, [facility] [place] [facility] [address] [id number] [place] [address]- 3457 Mar, [facility] [place] [facility] [address] [id number] [place] [address]- 3599 Mar, [facility] [place] [facility] [address] [id number] [place] [address]- 4078 Mar, [facility] [place] [facility] [address] [id number] [place] [address]- 0913 Mar, [facility] [place] [facility] [address] [id number] [place] [address]- 0403 Mar, [facility] [place] [facility] [address] [id number] [place] [address]- 6433 Mar, [facility] [place] [facility] [address] [id number] [place] [address]- 6851 Mar, [facility] [place] [facility] [address] [id number] [place] [address]- 0021 Mar, [facility] [place] [facility] [address] [id number] [place] [address]- 7765 Mar, [facility] [place] [facility] [address] [id number], [place] [address]- 3340 Mar, [facility] [place] [facility] [address] [id number] [place] [address]- 4885 Mar, [facility] [place] [facility] [address] [id number] [place] [address]- 6456 Mar, [facility] [place] [facility] [address] [id number] [place] [address]- 6437 Feb, [facility] [place] [facility] [address] [id number] [place] [address]- 0200 Feb, [facility] [place] [facility] [address] [id number] [place] [address]- 2267 Feb, [facility] [place] [facility] [address] [id number] [place] [address]- 0816 Feb, [facility] [place] [facility] [address] [id number] [place] [address]- 1644 Feb, [facility] [place] [facility] [address] [id number] [place] [address]- 6286 Feb, [facility] [place] [facility] [address] [id number] [place] [address]- 3777 Feb, [facility] [place] [facility] [address] [id number] [place] [address]- 4039 Feb, [facility] [place] [facility] [address] [id number] [place] [address]- 2244 Feb, [facility] [place] [facility] [address] [id number] [place] [address]- 0967 Feb, [facility] [place] [facility] [address] [id number] [place] [address]- 6821 Feb, [facility] [place] [facility] [address] [id number] [place] [address]- 1906 Feb, [facility] [place] [facility] [address] [id number] [place] [address]- 8189 Feb, [facility] [place] [facility] [address] [id number], [place] [address]- 5837 Feb, [facility] [place] [facility] [address] [id number] [place] [address]- 4324 Feb, [facility] [place] [facility] [address] [id number] [place] [address]- 3095 Feb, [facility] [place] [facility] [address] [id number], [place] [address]- 0227 Jan, [facility] [place] [facility] [address] [id number] [place] [address]- 8093 Jan, [facility] [place] [facility] [address] [id number] [place] [address]- 4087 Jan, [facility] [place] [facility] [address] [id number] [place] [address]- 1053 Jan, [facility] [place] [facility] [address] [id number] [place] [address]- 1912 Jan, [facility] [place] [facility] [address] [id number] [place] [address]- 6857 Jan, [facility] [place] [facility] [address] [id number] [place] [address]- 3786 Jan, [facility] [place] [facility] [address] [id number] [place] [address]- 6433 Jan, [facility] [place] [facility] [address] [id number] [place] [address]- 6897 Jan, [facility] [place] [facility] [address] [id number] [place] [address]- 8645 Jan, [facility] [place] [facility] [address] [id number] [place] [address]- 1042 Jan, [facility] [place] [facility] [address] [id number] [place] [address]- 2782 Jan, [facility] [place] [facility] [address] [id number], [place] [address]- 3863 Jan, [facility] [place] [facility] [address] [id number] [place] [address]- 8804 Jan, [facility] [place] [facility] [address] [id number] [place] [address]- 2420 Jan, [facility] [place] [facility] [address] [id number] [place] [address]- 7861 Jan, [facility] [place] [facility] [address] [id number], [place] [address]- 3247 04 Jan, 2012 [facility] [place] [facility] [address] [id number] [place] [address]- 0426 21 Dec, 2011 [facility] [place] [facility] [address] [id number] [place] [address]- 0986 20 Dec, 2011 [facility] [place] [facility] [address] [id number] [place] [address] 2546 18 Dec, 2011 [facility] [place] [facility] [address] [id number] [place] [address] 2546 18 Dec, 2011 [facility] [place] [facility] [address] [id number] [place] [address] 2546 10 Dec, 2011 [facility] [place] [facility] [address] [id number] [place] [address]- 3016 10 Dec, 2011 [facility] [place] [facility] [address] [id number] [place] [address]- 0619 10 Dec, 2011 [facility] [place] [facility] [address] [id number] [place] [address]- 8568 07 Dec, 2011 [facility] [place] [facility] [address] [id number] [place] [address]- 1596 30 Nov, 2011 [facility] [place] [facility] [address] [id number] [place] [address]- 9166 Nov, [facility] [place] [facility] [address] [id number] [place] [address]- 7438 Nov, [facility] [place] [facility] [address] [id number] [place] [address]- 2545 Nov, [facility] [place] [facility] [address] [id number] [place] [address] 2546 Nov, [facility] [place] [facility] [address] [id number] [place] [address]- 8642 Nov, [facility] [place] [facility] [address] [id number] [place] [address]- 2541 30 Oct, 2011 [facility] [place] [facility] [address] [id number] [place] [address]- 9882 30 Oct, 2011 [facility] [address] [id number] [place] [address]- 4416 Oct, [facility] [place] [facility] [address] [id number] [place] [address]- 1846 Oct, [facility] [address] [id number] [place] [address]- 5607 Oct, [facility] [place] [facility] [address] [id number] [place] [address]- 0395 Oct, [facility] [address] [id number] [place] [address]- 0845 Oct, [facility] [place] [facility] [address] [id number] [place] [address]- 1361 Sep, [facility] [place] [facility] [address] [id number] [place] [address]- 8562 Sep, [facility] [place] [facility] [address] [id number] [place] [address]- 4956 Sep, [facility] [place] [facility] [address] [id number] [place] [address]- 7427 Sep, [facility] [address] [id number] [place] [address]- 8904 Sep, [facility] [place] [facility] [address] [id number] [place] [address]- 2542 15 Sep, 2011 [facility] [place] [facility] [address] [id number] [place] [address]- 1166 14 Sep, 2011 [facility] [place] [facility] [address] [id number] [place] [address]- 7051 11 Sep, 2011 [facility] [place] [facility] [address] [id number] [place] [address]- 1883 05 Sep, 2011 [facility] [place] [facility] [address] [id number] [place] [address]- 4718 Sep, [facility] [address] [id number] [place] [address]- 2750 August, [facility] [place] [facility] [address] [id number] [place] [address]- 3546 August, [facility] [place] [facility] [address] [id number] [place] [address]- 3338 August, [facility] [place] [facility] [address] [id number] [place] [address]- 8746 August, [facility] [address] [id number] [place] [address]- 5777 August, [facility] [place] [facility] [address] [id number] [place] [address]- 5307 Jul, [facility] [place] [facility] [address] [id number] [place] [address]- 3362 Jul, [facility] [address] [id number] [place] [address]- 2340 Jul, [facility] [place] [facility] [address] [id number] [place] [address]- 2118 Jul, [facility] [place] [facility] [address] [id number] [place] [address]- 0902 Jul, [facility] [place] [facility] [address] [id number] [place] [address]- 0450 Jul, [facility] [place] [facility] [address] [id number], [place] [address]- 9843 Jul, [facility] [place] [facility] [address] [id number] [place] [address]- 5129 Jun, [facility] [place] [facility] [address] [id number] [place] [address]- 9407 Jun, [facility] [place] [facility] [address] [id number] [place] [address]- 8184 Jun, [facility] [place] [facility] [address] [id number], [place] [address]- 8155 Jun, [facility] [place] [facility] [address] [id number] [place] [address]- 7318 Jun, [facility] [place] [facility] [address] [id number] [place] [address]- 2336 May, [facility] [place] [facility] [address] [id number] [place] [address]- 9176 May, [facility] [place] [facility] [address] [id number] [place] [address]- 4003 May, [facility] [place] [facility] [address] [id number] [place] [address]- 8385 May, [facility] [place] [facility] [address] [id number] [place] [address]- 1358 May, [facility] [place] [facility] [address] [facility] [id number] [place] [address]- 4782 May, [facility] [place] [facility] [address] [id number] [place] [address]- 3161 Apr, [facility] [place] [facility] [address] [facility] [id number] [place] [address]- 8636 Mar, [facility] [place] [facility] [address] [facility] [id number] [place] [address]- 1162 Feb, [facility] [place] [facility] [address] [id number] [place] [address] 2543 Feb, [facility] [place] [facility] [address] [id number] [place] [address]- 2545 Feb, [facility] [place] [facility] [address] [id number] [place] [address]- 8878 Feb, [facility] [place] [facility] [address] [facility] [id number] [place] [address]- 9031 Jan, [facility] [place] [facility] [address] [id number] [place] [address]- 2494 Jan, [facility] [place] [facility] [address] [id number] [place] [address]- 3090 26 Jan, 2011 [facility] [address] [id number] [place] 7913 24 Jan, 2011 [facility] [address] [id number] [place] [address]- 4775 14 Jan, 2011 [facility] [address] [id number] [place] [address]- 4216 19 Dec, 2010 [facility] [address] [id number] [place] [address]- 4152 Oct, [facility] [address] [id number] [place] [address]- 9999 August, [facility] [address] [id number] [place] [address]- 5848 29 Mar, 2010 [facility] [address] [id number] [place] [address]- 7016 27 Mar, 2010 [facility] [address] [id number] [place] [address]- 0237 16 Mar, 2010 [facility] [address] [id number] [place] [address]- 6637 15 Mar, 2010 [facility] [address] [id number] [place] [address]- 8019 15 Mar, 2010 [facility] [place] [facility] [address] [id number] [place] [address]- 7610 08 Mar, 2010 [facility] [place] [facility] [address] [id number] [place] [address]- 3952 03 Mar, 2010 [facility] [place] [facility] [address] [id number] [place] [address]- 5233 24 Feb, 2010 [facility] [place] [facility] [address] [id number] [place] [address]- 9968 24 Feb, 2010 [facility] [place] [facility] [address] [id number], [place] [address]- 3181 15 Feb, 2010 [facility] [place] [facility] [address] [id number] [place] [address]- 9902 19 Jan, 2010 [facility] [place] [facility] [address] [id number], [place] [address]- 9983 Jan, [facility] [place] [facility] [address] [id number] [place] [address]- 4559 Jan, [facility] [place] [facility] [address] [id number], [place] [address]- 0345 Nov, [facility] [place] [facility] [address] [id number] [place] [address]- 6529 Sep, [facility] [place] [facility] [address] [id number], [place] [address]- 6670 August, [facility] [place] [facility] [address] [id number], [place] [address]- 0414 30 Mar, 2009 [facility] [place] [facility] [address] [id number], [place] [address]- 5626 Mar, [facility] [place] [facility] [address] [id number], [place] [address]- 3142 17 Feb, 2009 [facility] [place] [facility] [address] [id number], [place] [address]- 1826 Feb, [facility] [place] [facility] [address] [id number], [place] [address]- 7157 10 Feb, 2009 [facility] [place] [facility] [address] [id number], [place] [address]- 4649 10 Feb, 2009 [facility] [place] [facility] [address] [id number], [place] [address]- 6008 06 Feb, 2009 [facility] [place] [facility] [address] [id number], [place] [address]- 0698 27 Jan, 2009 [facility] [place] [facility] [address] [id number], [place] [address]- 1487 Jan, [facility] [place] [facility] [address] [id number], [place] [address]- 1888 Jan, [facility] [place] [address] [id number], [place] [address]- 0995 Jan, [facility] [place] [id number], [place] [address]- 5541 Nov, [facility] [place] [id number], [place] [address]- 0012 Sep, [facility] [place] [id number], [place] [address]- 8644 August, [facility] [place] [id number], [place] [address]- 9533 Jul, [facility] [place] [id number], [place] [address]- 1866 May, IMMUNIZATIONS No Known Immunizations SOCIAL HISTORY [...] Knee Surgery 07/16/17 Hospitalization History [facility] [place]- left hand/wrist swelling 10/09/2017
--- OUTSIDE RECORDS SUMMARY | 2018-01-01 12:21 | XMS REPORT ---
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 Name Role Phone SENAIT DUNLAP Unavailable PROBLEMS Type Condition ICD9-CM Code PSK49-ER Code Onset Dates Condition Status SNOMED Code Problem History of common bile duct surgery Z98.89 Active 202215957 Problem Barretts esophagus K22.70 Active 494819262 Problem 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 Active 44751051 Problem Colon polyp K63.5 Active 55322695 Problem Bilateral low back pain without sciatica M54.5 Active 570836799 Problem Screening breast examination Z12.39 Active 172232833 Problem Postmenopausal Z78.0 Active 28490658 Problem Osteopenia M85.80 Active 886368247 Problem Cigarette nicotine dependence without complication F17.210 Active 14423053 Problem Type 2 diabetes mellitus with diabetic peripheral angiopathy without gangrene E11.51 Active 723493928 Problem Vascular dementia without behavioral disturbance F01.50 Active [id number] Problem Unspecified atherosclerosis of [place] arteries of extremities, unspecified extremity I70.209 Active 346278624825819 Problem Arthritis M19.90 Active 2927385 Problem Chronic atrial fibrillation I48.2 Active 486832087 Problem Chronic obstructive pulmonary disease with acute lower respiratory infection J44.0 Active 915853537 Problem Other chronic pancreatitis K86.1 Active 586870448 Problem Stress incontinence of urine N39.3 Active 81338202 Problem Controlled type 2 diabetes mellitus without complication, without long -term current use of insulin E11.9 Active 758386841 Problem Unspecified psychosis F29 Active 45912568 Problem Xeroderma Q80.9 Active 93633699 Problem COPD (chronic obstructive pulmonary disease) J44.9 Active 34030985 Problem Dementia without behavioral disturbance, unspecified dementia type F03.90 Active 98419150 Problem Gastroparesis K31.84 Active 204913599 Problem Type 2 diabetes mellitus with diabetic neuropathy, without long-term current use of insulin E11.40 Active 03184093 Problem Osteoporosis M81.0 Active 92834812 Problem Atherosclerosis of [place] artery of both lower extremities with intermittent claudication I70.213 Active 628559642487874 Problem Hyperlipidemia E78.5 Active 45260299 Problem Diabetic polyneuropathy associated with type 2 diabetes mellitus E11.42 Active 19241778 Problem Essential tremor G25.0 Active 58529769 Problem 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.118 Active 4345327857291 Problem Generalized anxiety disorder F41.1 Active 618511501 Problem Gastroesophageal reflux disease, esophagitis presence not specified K21.9 Active 650704978 Problem Coronary artery disease involving [place] coronary artery of [place] 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 I25.118 Active 0632444590149 Problem Postconcussion syndrome F07.81 Active 55890415 Problem Chronic pain syndrome G89.4 Active 753218105 Problem Migraine without aura and without status migrainosus, not intractable G43.009 Active 049649667 Problem Paroxysmal atrial fibrillation I48.0 Active 496871541 Problem Migraine without aura and with status migrainosus, not intractable G43.001 Active 890712738 Problem Cervicalgia M54.2 Active 2260346646549 Problem Acute exacerbation of chronic obstructive pulmonary disease (COPD) J44.1 Active 190496183 Problem Major depressive disorder, recurrent episode, moderate F33.1 Active 502415725 Problem Crohn''s disease without complication, unspecified gastrointestinal tract location K50.90 Active 64929989 Problem Chronic fatigue R53.82 Active 67337079 Problem Bipolar affective disorder, currently depressed, moderate F31.32 Active 506965375 ALLERGIES No Information ENCOUNTERS Encounter Location Date Diagnosis [facility] [address] [address] [id number] [address] Nov, [facility] [id number] [address] Nov, [place] [id number] [address] Oct, [facility] [id number] [address] Oct, Bipolar affective disorder, currently depressed, moderate F31.32 ; Vascular dementia without behavioral disturbance F01.50 and Generalized anxiety disorder F41.1 [facility] [id number] [place] [address] 48374- 3771 Oct, [facility] [id number] [place] [address] 55988- 2157 Oct, [facility] [id number] [place] [address] 75474- 5697 Oct, Edema of both legs R60.0 [facility] [id number] [place] [address] 90150- 4770 Oct, [facility] [id number] [place] [address] 88394- 9648 Sep, [facility] [id number] [place] [address] 16842- 5089 Sep, [facility] [id number] [place] [address] 28844- 3892 Sep, [facility] [id number] [place] [address] 05150- 1401 Sep, Encounter for well woman exam with routine gynecological exam Z01.419 ; Screening for STDs (sexually transmitted diseases) Z11.3 ; Screening breast examination Z12.31 and Overweight (BMI 25.0-29.9) E66.3 [facility] [address] [address] Sep, [facility] [id number] [address] 7018 Sep, [facility] [id number] [place] [address] 87089- 2237 Sep, [facility] [id number] [place] [address] 01295- 0109 August, [facility] [id number] [address] August, [facility] [id number] [address] August, Type 2 diabetes mellitus with diabetic neuropathy, without long-term current use of insulin E11.40 and Sprain of right ankle, unspecified ligament, initial encounter S93.401A [facility] [id number] [address] August, [facility] [id number] [place] [address] 71708- 9442 August, [facility] [id number] [place] [address] 96717- 9774 August, [facility] [id number] [place] [address] 14853- 9575 August, Gastroesophageal reflux disease, esophagitis presence not specified K21.9 [facility] [id number] [place] [address] 35284- 6797 August, [facility] [id number] [place] [address] 04164- 4266 August, [facility] [id number] [place] [address] 38784- 5760 August, [facility] [id number] [place] [address] 93230- 7249 August, Type 2 diabetes mellitus with diabetic neuropathy, without long-term current use of insulin E11.40 and Elevated liver enzymes R74.8 [facility] [address] [place] [address] 99583- 1858 Jul, [facility] [id number] [place] [address] 29285- 6831 Jul, Cough R05 [facility] [address] [place] [address] 35165- 1932 Jul, [facility] [address] [address] 38[address] Jul, [facility] [id number] [place] [address] 80055- 1049 Jul, Bipolar affective disorder, currently depressed, moderate F31.32 ; Vascular dementia without behavioral disturbance F01.50 and Generalized anxiety disorder F41.1 [facility] [id number] [place] [address] 34553- 1139 Jul, [facility] [address] 94923- 8384 Jul, Type 2 diabetes mellitus with diabetic neuropathy, without long-term current use of insulin E11.40 and Elevated liver enzymes R74.8 [facility] [address] 32848- 1531 Jul, [facility] [id number] [place] [address] 94689- 7830 Jul, [facility] [id number] [place] [address] 46356- 5408 Jul, [facility] [id number] [place] [address] 62590- 5602 Jul, Post-menopausal Z78.0 [facility] [address] 40307- 3270 Jul, Stress incontinence of urine N39.3 [facility] [id number] [place] [address] 58317- 6751 Jul, [facility] [id number] [place] [address] 21623- 7831 Jul, [facility] [id number] [place] [address] 08872- 9798 Jul, Stress incontinence of urine N39.3 and Cough R05 [facility] [id number] [place] [address] 01092- 2894 Jul, [facility] [id number] [place] [address] 60589- 4294 Jul, [facility] [id number] [place] [address] 55777- 9686 Jul, [facility] [id number] [place] [address] 38232- 1258 Jul, Gastroesophageal reflux disease, esophagitis presence not specified K21.9 [facility] [address] [place] [address] 54083- 5785 Jun, Diabetic polyneuropathy associated with type 2 diabetes mellitus E11.42 [facility] [id number] [place] [address] 17488- 2032 Jun, Diabetic polyneuropathy associated with type 2 diabetes mellitus E11.42 ; Coronary artery disease involving [place] coronary artery of [place] 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 I25.118 and Paroxysmal atrial fibrillation I48.0 [place] [id number] [place] [address] 15788- 2969 Jun, [place] [id number] [place] [address] 27009- 5373 Jun, [facility] [id number] [place] [address] 34648 2544 Jun, Gastroenteritis K52.9 [facility] [id number] [place] [address] 88841 2546 Jun, Gastroenteritis K52.9 [facility] [address] [place] [address] 38545 2547 Jun, [facility] [id number] [place] [address] 04615 2543 Jun, [facility] [address] [place] [address] 16624- 1698 Jun, Sprain of right ankle, unspecified ligament, initial encounter S93.401A ; Type 2 diabetes mellitus with diabetic neuropathy, without long-term current use of insulin E11.40 ; Atherosclerosis of [place] artery of both lower extremities with intermittent claudication I70.213 ; 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.118 ; Chronic atrial fibrillation I48.2 and Crohn''s disease without complication, unspecified gastrointestinal tract location K50.90 [facility] [address] [place] [address] 30357 -0684 17 Jun, 2017 Cough R05 and Chronic obstructive pulmonary disease with acute lower respiratory infection J44.0 [facility] [id number] [place] [address] 41910- 3385 Jun, [place] [id number] [place] [address] 70786- 8034 Jun, Coughing R05 ; Unspecified atherosclerosis of [place] arteries of extremities, unspecified extremity I70.209 ; Type 2 diabetes mellitus with diabetic peripheral angiopathy without gangrene E11.51 ; Crohn''s disease without complication, unspecified gastrointestinal tract location K50.90 ; Other chronic pancreatitis K86.1 and Chronic atrial fibrillation I48.2 [facility] [id number] [place] [address] 75580 -4428 Jun, [place] [id number] [place] [address] 43235- 1029 Jun, Bipolar affective disorder, currently depressed, moderate F31.32 ; Vascular dementia without behavioral disturbance F01.50 and Generalized anxiety disorder F41.1 [place] [id number] [place] [address] 53661- 5186 May, Generalized anxiety disorder F41.1 [place] [id number] [place] [address] 49950- 8358 May, [place] [id number] [place] [address] 08933- 8123 May, [place] [id number] [place] [address] 65128- 1715 May, Coughing R05 [place] [id number] [place] [address] 39135- 3548 09 May, 2017 [place] [id number] [place] [address] 90752- 7130 May, Bipolar affective disorder, currently depressed, moderate F31.32 ; Vascular dementia without behavioral disturbance F01.50 and Generalized anxiety disorder F41.1 [place] [id number] [place] [address] 25395- 0526 Apr, Generalized anxiety disorder F41.1 [place] [id number] [place] [address] 98087- 3383 Apr, [place] [id number] [place] [address] 95538- 8428 Apr, Vascular dementia without behavioral disturbance F01.50 ; Generalized anxiety disorder F41.1 and Bipolar affective disorder, currently depressed, moderate F31.32 [place] [id number] [place] [address] 22195- 8378 Apr, Generalized anxiety disorder F41.1 [facility] [id number] [place] [address] 71130 -6762 Apr, Cough R05 and Acute exacerbation of chronic obstructive pulmonary disease (COPD) J44.1 [place] [id number] [place] [address] 12671- 6492 Apr, [facility] [id number] [place] [address] 84243 -9781 Mar, Cough R05 and Cigarette nicotine dependence without complication F17.210 [place] [id number] [place] [address] 13996- 0183 Mar, [place] [id number] [place] [address] 20560- 6914 Feb, Generalized anxiety disorder F41.1 ; Major depressive disorder, recurrent episode, moderate F33.1 ; Vascular dementia without behavioral disturbance F01.50 and Unspecified psychosis F29 [place] [id number] [place] [address] 62564- 8684 Feb, [place] [id number] [place] [address] 46375- 9601 Feb, [place] [id number] [place] [address] 90936- 7164 Feb, Generalized anxiety disorder F41.1 [place] [id number] [place] [address] 80779- 9854 Feb, Generalized anxiety disorder F41.1 [place] [address] 84801- 8905 Feb, Dizziness R42 ; Chronic fatigue R53.82 ; Postconcussion syndrome F07.81 ; Fall, initial encounter W19.XXXA and Disorientation R41.0 [place] [address] 55782- 0098 Feb, Postconcussion syndrome F07.81 ; Injury of head, initial encounter S09.90XA ; Fall, initial encounter W19.XXXA ; Disorientation R41.0 and Acute cystitis with hematuria N30.01 [place] [address] 76520- 2477 Jan, Gastroesophageal reflux disease, esophagitis presence not specified K21.9 ; Post-menopausal Z78.0 and Migraine without aura and without status migrainosus, not intractable G43.009 [place] [id number] [place] [address] 67248- 5114 Jan, [place] [id number] [place] [address] 64782- 8877 Jan, Generalized anxiety disorder F41.1 ; Major depressive disorder, recurrent episode, moderate F33.1 ; Vascular dementia without behavioral disturbance F01.50 and Unspecified psychosis F29 [place] [address] 78983- 0429 Jan, Pneumonia of left lower lobe due to infectious organism J18.1 [place] [id number] [place] [address] 82023- 9465 Jan, Migraine without aura and with status migrainosus, not intractable G43.001 [facility] [address] [address] 04 Jan, 2017 Migraine without aura and without status migrainosus, not intractable G43.009 [facility] [address] [place] [address] 77351- 4283 19 Dec, 2016 Hematoma T14.8 [facility] [id number] [place] [address] 66613- 6908 Dec, [facility] [id number] [place] [address] 57884 -3300 Nov, Fatigue, unspecified type R53.83 [place] [id number] [place] [address] 75137- 2936 Nov, Scabies B86 and Coronary artery disease involving [place] coronary artery of [place] 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 I25.118 [place] [id number] [place] [address] 00240- 0895 Nov, [facility] [id number] [place] [address] 66479- 3162 Nov, [place] [id number] [place] [address] 50036- 2634 Oct, [place] [id number] [place] [address] 15368- 2704 Oct, Generalized anxiety disorder F41.1 and Major depressive disorder, recurrent episode, moderate F33.1 [facility] [address] [place] [address] 06852- 7501 Oct, Cramp of both lower extremities R25.2 [place] [id number] [place] [address] 21559- 3592 Oct, Leg cramps R25.2 [place] [id number] [place] [address] 66242- 0606 Oct, Chronic pain syndrome G89.4 [place] [id number] [address]- 0570 17 Oct, 2016 [facility] [address] [place] [address] 83192- 3814 14 Oct, 2016 [facility] [id number] [place] [address] 67335- 5508 11 Oct, 2016 Routine gynecological examination Z01.419 and Screening for breast cancer Z12.31 [place] [id number] [place] [address] 61616- 2034 28 Sep, 2016 Diarrhea R19.7 [place] [id number] [place] [address] 10344- 3991 Sep, Back pain M54.9 [place] [id number] [place] [address] 03476- 3894 Sep, [place] [id number] [place] [address] 92526- 1055 Sep, [facility] [id number] [place] [address] 28030 -3530 August, Xeroderma Q80.9 [place] [id number] [place] [address] 45061- 5260 August, Dementia without behavioral disturbance, unspecified dementia type F03.90 [place] [id number] [place] [address] 19225- 3783 August, Chronic pain syndrome G89.4 [place] [id number] [place] [address] 02344- 2603 August, [facility] [id number] [place] [address] 15665- 5167 August, Hyperlipidemia E78.5 ; Other fatigue R53.83 and Other specified hypotension I95.89 [facility] [address] [address] August, Dysuria R30.0 ; Other fatigue R53.83 and Other specified hypotension I95.89 [facility] [id number] [place] [address] 97815- 2467 August, [facility] [address] 44025- 9668 Jul, Pain in left knee M25.562 and Gastroenteritis K52.9 [facility] [address] 53802- 9331 Jul, [facility] [address] 18129- 1360 Jul, Diarrhea R19.7 [facility] [address] 84737 -0721 Jul, Spider bite, accidental or unintentional, initial encounter T63.301A [place] [address] 13292- 9514 Jul, Primary osteoarthritis of right knee M17.11 and Arthritis M19.90 [facility] [address] 34185- 8435 Jul, Generalized anxiety disorder F41.1 and Major depressive disorder, recurrent episode, moderate F33.1 [facility] [id number] [place] [address] 03160- 7450 Jul, Type 2 diabetes mellitus with diabetic polyneuropathy E11.42 and Temporal headache R51 [facility] [id number] [place] [address] 77777- 6338 Jul, Back pain M54.9 [facility] [id number] [place] [address] 95017- 5312 Jul, [facility] [address] 60652- 3062 Jul, [facility] [id number] [place] [address] 16275- 5702 Jun, Nausea R11.0 [facility] [address] [place] [address] Jun, Acute suppurative otitis media of both ears without spontaneous rupture of tympanic membranes, recurrence not specified H66.003 and COPD exacerbation J44.1 [facility] [address] 21089- 0182 Jun, Generalized anxiety disorder F41.1 [place] [address] 29499- 3760 16 Jun, 2016 [facility] [address] 43378 -2973 Jun, [facility] [address] 84199 -2906 Jun, Shortness of breath R06.02 and COPD exacerbation J44.1 [place] [address] 33722- 8377 Jun, Eczema, unspecified type L30.9 [place] [address] 91532- 1801 Jun, [place] [address] 82568- 3213 May, [place] [id number] [place] [address] 41210- 8563 May, Muscle cramping R25.2 [place] [id number] [place] [address] 11874- 7393 May, [place] [address] 06195- 0896 Apr, Diarrhea R19.7 [place] [address] 14460- 9489 Apr, [place] [id number] [place] [address] 92205- 6018 Apr, Chronic pain syndrome G89.4 [place] [id number] [place] [address] 75815- 8911 16 Apr, 2016 Cramp of both lower extremities R25.2 and Vascular dementia without behavioral disturbance F01.50 [place] [address] 00785- 5737 Apr, Type 2 diabetes mellitus with diabetic polyneuropathy E11.42 and Cigarette nicotine dependence without complication F17.210 [place] [address] 36185- 6841 Mar, Generalized anxiety disorder F41.1 [place] [address] 30439- 7231 Feb, Generalized anxiety disorder F41.1 and Major depressive disorder, recurrent episode, moderate F33.1 [place] [address] 25111- 0455 Feb, [facility] [address] 75714 -0283 Feb, Dysuria R30.0 and Acute cystitis with hematuria N30.01 [place] [address] 86779- 1717 Jan, [place] [address] 10682- 7975 Jan, [place] [address] 17460- 9698 Jan, [place] [address] 11887- 4257 Jan, [facility] [address] 72431 -3357 Jan, Wasp sting, accidental or unintentional, initial encounter T63.461A [place] [address] 75776- 9616 06 Jan, 2016 Encounter for immunization Z23 [place] [address] 95810- 1167 Jan, [facility] [address] [id number] [address] Jan, [facility] [id number] [place] [address] 95644- 7770 28 Dec, 2015 Generalized anxiety disorder F41.1 and Major depressive disorder, recurrent episode, moderate F33.1 [facility] [id number] [place] [address] 58330- 4496 21 Dec, 2015 Routine gynecological examination Z01.419 ; Postmenopausal Z78.0 ; Screening breast examination Z12.39 ; Osteopenia M85.80 and Breast cancer screening Z12.39 [facility] [id number] [place] [address] 49047- 6917 20 Dec, 2015 [facility] [id number] [place] [address] 01290- 4081 19 Dec, 2015 [facility] [id number] [place] [address] 90508- 5233 16 Dec, 2015 [facility] [id number] [place] [address] 19914- 4942 16 Dec, 2015 [facility] [id number] [place] [address] 37147- 1072 14 Dec, 2015 [facility] [id number] [place] [address] 41338- 4026 Dec, [facility] [id number] [place] [address] 24349- 8355 Nov, [facility] [id number] [place] [address] 59830 -6454 Nov, Cough R05 ; Other viral agents as the cause of diseases classified elsewhere B97.89 and Acute upper respiratory infection, unspecified J06.9 [facility] [address] [address] 25[address] Nov, [facility] [id number] [place] [address] 87971- 0870 Nov, [facility] [address] [address]- 6241 Nov, [facility] [address] [address]- 8079 Nov, [facility] [address] [address]- 2776 Nov, [facility] [id number] [place] [address] 80230- 6554 Oct, [facility] [id number] [place] [address] 15122- 1931 Oct, [facility] [id number] [address] 8926 Oct, [facility] [id number] [place] [address] 06693- 9641 Oct, Chronic pain syndrome G89.4 [facility] [id number] [address] 0421 Sep, Generalized anxiety disorder F41.1 and Major depressive disorder, recurrent episode, moderate F33.1 [facility] [address] [address]- 5909 Sep, [facility] [address] [address]- 7874 Sep, [facility] [address] [address]- 3671 14 Sep, 2015 Generalized anxiety disorder F41.1 [facility] [address] [address]- 9449 13 Sep, 2015 Cramp of both lower extremities R25.2 and Cervicalgia M54.2 [facility] [address] [address]- 3009 06 Sep, 2015 Generalized anxiety disorder F41.1 [facility] [id number] [address] 1412 Sep, [facility] [id number] [place] [address] 71471 -6191 August, Rash R21 ; Itching L29.9 and Allergic response, subsequent encounter T78.40XD [facility] [id number] [place] [address] 82824- 3262 August, Primary insomnia F51.01 [facility] [id number] [place] [address] 50966 -9089 August, Rash R21 ; Itching L29.9 and Allergic response, initial encounter T78.40XA [facility] [id number] [place] [address] 29454- 6857 August, [facility] [id number] [place] [address] 32605- 7889 August, Cramp of both lower extremities R25.2 [facility] [id number] [place] [address] 14501- 8494 August, Back pain M54.9 [facility] [id number] [place] [address] 67535- 6135 August, [facility] [id number] [place] [address] 73521- 6406 August, [facility] [id number] [place] [address] 16573 -1421 August, Cramp of both lower extremities R25.2 [facility] [id number] [place] [address] 45775- 7107 August, [facility] [id number] [place] [address] 33013- 3440 August, Syncope R55 ; Paroxysmal atrial fibrillation I48.0 ; Dementia without behavioral disturbance, unspecified dementia type F03.90 and Chronic pain syndrome G89.4 [facility] [id number] [place] [address] 79764- 5510 August, Type 2 diabetes mellitus with diabetic polyneuropathy E11.42 and Syncope R55 [facility] [id number] [place] [address] 53317- 5933 Jul, [facility] [id number] [place] [address] 13678- 6670 Jul, [facility] [id number] [place] [address] 21075- 0854 Jul, [facility] [id number] [place] [address] 53810- 2725 Jul, [facility] [id number] [place] [address] 29681- 1877 Jul, [facility] [id number] [place] [address] 88890- 1672 Jul, UTI (urinary tract infection) N39.0 [facility] [id number] [place] [address] 85485- 4145 Jul, [facility] [id number] [place] [address] 90859- 1150 Jul, Major depressive disorder, recurrent episode, moderate F33.1 and Generalized anxiety disorder F41.1 [facility] [id number] [place] [address] 41873- 7580 Jul, Generalized anxiety disorder F41.1 [facility] [id number] [place] [address] 40665- 8271 Jul, Diarrhea R19.7 [facility] [id number] [place] [address] 05461- 8906 Jul, [facility] [id number] [place] [address] 67069- 5617 Jun, [facility] [id number] [place] [address] 89030- 8730 Jun, Eczema L30.9 [facility] [address] [address]- 4299 Jun, [facility] [address] [address]- 5726 Jun, COPD (chronic obstructive pulmonary disease) J44.9 [facility] [address] [address]- 4516 Jun, [facility] [id number] [place] [address] 53197- 8607 Jun, Major depressive disorder, recurrent episode, moderate F33.1 and Generalized anxiety disorder F41.1 [facility] [address] [address]- 6236 May, [facility] [address] [address]- 3850 May, UTI (urinary tract infection) N39.0 [facility] [address] [address]- 0547 May, [facility] [address] [address]- 8363 May, [facility] [address] [address]- 3917 May, [facility] [address] [address]- 8436 May, [facility] [address] [address]- 2756 Apr, Major depressive disorder, recurrent episode, moderate F33.1 and Generalized anxiety disorder F41.1 [facility] [address] [address]- 5322 Apr, COPD (chronic obstructive pulmonary disease) J44.9 [facility] [address] [address]- 3126 Apr, [facility] [id number] [address]- 2664 Apr, Atrial flutter I48.92 [facility] [id number] [place] [address] 64349- 6743 Apr, [facility] [id number] [place] [address] 69182- 9384 Apr, [facility] [id number] [place] [address] 47331- 7777 Mar, [facility] [id number] [place] [address] 53012- 0674 Mar, [facility] [id number] [place] [address] 97709- 2387 Mar, [facility] [id number] [place] [address] 60760- 9510 Mar, Hyperlipidemia E78.5 ; Type 2 diabetes mellitus with diabetic polyneuropathy E11.42 ; Major depressive disorder, recurrent episode, moderate F33.1 and Chronic pain syndrome G89.4 [facility] [id number] [place] [address] 03506- 6042 Mar, [facility] [id number] [place] [address] 17265- 4703 Mar, [facility] [id number] [place] [address] 70752- 8403 Mar, [facility] [id number] [place] [address] 09247- 1430 Mar, [facility] [id number] [place] [address] 70910- 7475 Feb, COPD (chronic obstructive pulmonary disease) J44.9 and Back pain M54.9 [facility] [address] [address]- 8152 Feb, [facility] [id number] [place] [address] 51834- 4104 Feb, [facility] [address] [address]- 1046 Feb, [facility] [id number] [place] [address] 38607- 5335 Feb, [facility] [address] [address]- 2079 Feb, [facility] [id number] [place] [address] 39871- 1762 Feb, [facility] [id number] [place] [address] 85898- 8184 Feb, [facility] [id number] [place] [address] 80540- 8784 Feb, [facility] [id number] [place] [address] 84305- 3754 Feb, Diabetes E11.9 ; Back pain M54.9 and COPD (chronic obstructive pulmonary disease) J44.9 [facility] [id number] [place] [address] 98515- 4363 Jan, [facility] [id number] [place] [address] 94801- 5892 Jan, Major depression, recurrent F33.9 and Generalized anxiety disorder F41.1 [facility] [id number] [place] [address] 59639- 9784 Jan, Chronic pain G89.29 [facility] [id number] [address]- 9855 Jan, [facility] [id number] [place] [address] 67934- 5128 Jan, [facility] [id number] [place] [address] 70186- 9907 Jan, [facility] [address] [address]- 9645 Jan, [facility] [id number] [place] [address] 45139- 4556 Jan, Nicotine dependence F17.200 [facility] [address] 47365- 4329 Jan, Nicotine dependence F17.200 and Back pain M54.9 [facility] [id number] [place] [address] 00250- 8759 Jan, [facility] [id number] [place] [address] 18119- 5915 28 Dec, 2014 [facility] [id number] [place] [address] 54739- 7898 25 Dec, 2014 Anxiety, generalized 300.02 and Major depression, recurrent 296.30 [facility] [id number] [place] [address] 07148- 2247 24 Dec, 2014 [facility] [id number] [place] [address] 93646- 0414 21 Dec, 2014 [facility] [id number] [place] [address] 95484- 5253 17 Dec, 2014 [facility] [id number] [place] [address] 33907- 5112 15 Dec, 2014 [facility] [id number] [place] [address] 57876- 3069 14 Dec, 2014 [facility] [id number] [place] [address] 27253- 5921 11 Dec, 2014 [facility] [id number] [place] [address] 30963- 5375 10 Dec, 2014 [facility] [id number] [place] [address] 79329- 4276 08 Dec, 2014 Skin tear 879.8 [facility] [id number] [place] [address] 74366- 7978 08 Dec, 2014 Routine gynecological examination V72.31 ; Breast cancer screening V76.10 and Family history of breast cancer in first degree relative V16.3 [facility] [address] [address]- 2936 Dec, [facility] [id number] [place] [address] 26192- 8112 Dec, [facility] [id number] [address]- 1513 Nov, [facility] [id number] [place] [address] 94932- 9565 Nov, [facility] [id number] [place] [address] 85660- 4363 Nov, Poor balance 781.99 and Vascular dementia, uncomplicated 290.40 [facility] [id number] [place] [address] 68691- 2973 Nov, [facility] [id number] [place] [address] 60879- 6028 Nov, Major depression, recurrent 296.30 and Anxiety, generalized 300.02 [facility] [id number] [place] [address] 46323- 8027 Nov, [facility] [id number] [place] [address] 17197- 2979 Nov, [facility] [address] [address]- 5660 Nov, [facility] [id number] [place] [address] 85808- 8422 Nov, [facility] [id number] [address]- 7530 Nov, Vascular dementia, uncomplicated 290.40 and Lumbago 724.2 [facility] [address] [address]- 6490 Nov, [facility] [id number] [place] [address] 71649- 9260 Nov, [facility] [id number] [address]- 1866 Nov, [facility] [address] [address]- 5550 Oct, [facility] [address] [address]- 0629 Oct, [facility] [id number] [place] [address] 45773- 4202 Oct, [facility] [address] [address]- 9129 Oct, COPD (chronic obstructive pulmonary disease) 496 and Hyperlipidemia 272.4 [facility] [id number] [address]- 0625 Oct, Major depression, recurrent 296.30 and Anxiety, generalized 300.02 [facility] [id number] [address]- 9576 Oct, [facility] [address] [address]- 0474 Oct, [facility] [address] [address]- 0473 Oct, [facility] [id number] [address]- 3404 Sep, Lumbago 724.2 and Anxiety state, unspecified 300.00 [facility] [id number] [address]- 3876 Sep, [facility] [id number] [address]- 3692 Sep, [facility] [id number] [address]- 6011 August, [facility] [id number] [address]- 5084 August, Major depression, recurrent 296.30 ; Anxiety, generalized 300.02 and No condition on [place] II V71.09 [facility] [id number] [place] [address]- 4518 August, [facility] [address] [facility] [id number] [place] 4326 August, [facility] [id number] [address]- 3385 Jul, [facility] [address] [facility] [id number] [place] [address]- 0840 Jul, [facility] [id number] [address]- 6141 Jul, [facility] [id number] [place] [address]- 3535 Jun, [facility] [id number] [place] [address]- 9286 Jun, [facility] [id number] [address]- 4940 Jun, [facility] [id number] [address]- 5007 Jun, [facility] [id number] [address]- 4766 Jun, [facility] [id number] [place] [address]- 6030 Jun, [facility] [id number] [address]- 3791 23 Jun, 2014 [facility] [id number]- 6306 17 Jun, 2014 [facility] [address] [facility] [id number] 0888 Jun, [facility] [id number] 3354 Jun, [facility] [place] [facility] [address] [id number] [place] [address]- 4083 10 Jun, 2014 [facility] [place] [facility] [address] [id number] [place] [address]- 2338 10 Jun, 2014 [facility] [place] [facility] [address] [id number] [place] [address]- 4867 07 Jun, 2014 [facility] [place] [facility] [address] [id number] [place] [address]- 0190 07 Jun, 2014 [facility] [place] [facility] [address] [id number] [place] [address]- 1919 Jun, [facility] [place] [facility] [address] [id number] [place] [address]- 3138 Jun, 2014 [facility] [place] [facility] [address] [id number] [place] [address]- 3648 May, [facility] [place] [facility] [address] [id number] [place] [address]- 3258 May, 2014 [facility] [place] [facility] [address] [id number] [place] [address]- 5087 May, [facility] [place] [facility] [address] [facility] [address] [id number] [place] [address]- 0922 May, 2014 [facility] [place] [facility] [address] [facility] [address] [id number] [place] [address]- 0821 May, 2014 [facility] [place] [facility] [address] [id number] [place] [address]- 7089 May, 2014 [facility] [place] [facility] [address] [id number] [place] [address]- 2541 May, 2014 [facility] [place] [facility] [address] [id number] [place] [address]- 8026 12 May, 2014 [facility] [place] [facility] [address] [facility] [address] [id number] [place] [address]- 9942 May, 2014 [facility] [place] [facility] [address] [facility] [address] [id number] [place] [address]- 5340 May, 2014 [facility] [place] [facility] [address] [id number] [place] [address]- 9356 May, 2014 [facility] [place] [facility] [address] [id number] [place] [address]- 7166 May, 2014 [facility] [place] [facility] [address] [id number] [place] [address]- 5516 May, 2014 [facility] [place] [facility] [address] [id number] [place] [address]- 1964 May, [facility] [place] [facility] [address] [id number] [place] [address]- 8991 Apr, [facility] [place] [facility] [address] [id number] [place] [address]- 9452 Apr, [facility] [place] [facility] [address] [id number] [place] [address]- 5007 Apr, [facility] [place] [facility] [address] [id number] [place] [address]- 2676 Apr, [facility] [place] [facility] [address] [id number] [place] [address] Apr, [facility] [place] [facility] [address] [id number] [place] [address] Apr, [facility] [place] [facility] [address] [id number] [place] [address] Apr, [facility] [place] [facility] [address] [id number] [place] [address] Apr, [facility] [place] [facility] [address] [id number] [place] [address] Apr, [facility] [place] [facility] [address] [id number] [place] [address] Apr, [facility] [place] [facility] [address] [id number] [place] [address] Apr, [facility] [place] [facility] [address] [id number] [place] [address] Apr, [facility] [place] [facility] [address] [id number] [place] [address] Mar, [facility] [place] [facility] [address] [id number] [place] [address] 31 Mar, 2014 [facility] [place] [facility] [address] [id number] [place] [address] 30 Mar, 2014 [facility] [place] [facility] [address] [id number] [place] [address] 30 Mar, 2014 [facility] [place] [facility] [address] [id number] [place] [address] Mar, [facility] [place] [facility] [address] [id number] [place] [address] Mar, [facility] [place] [facility] [address] [id number] [place] [address] Mar, [facility] [place] [facility] [address] [id number] [place] [address] 19 Mar, 2014 [facility] [place] [facility] [address] [id number] [place] [address] 15 Mar, 2014 [facility] [place] [facility] [address] [id number] [place] [address]68 15 Mar, 2014 [facility] [place] [facility] [address] [id number] [place] [address] 15 Mar, 2014 [facility] [place] [facility] [address] [id number] [place] [address] 15 Mar, 2014 [facility] [place] [facility] [address] [id number] [place] [address] 15 Mar, 2014 [facility] [place] [facility] [address] [id number] [place] [address] 15 Mar, 2014 [facility] [place] [facility] [address] [id number] [place] [address] Mar, [facility] [place] [facility] [address] [id number] [place] [address] Mar, [facility] [place] [facility] [address] [id number] [place] [address] Mar, [facility] [place] [facility] [address] [id number] [place] [address] Mar, [facility] [place] [facility] [address] [id number] [place] [address] Mar, [facility] [place] [facility] [address] [id number] [place] [address] Mar, [facility] [place] [facility] [address] [id number] [place] [address] Feb, [facility] [place] [facility] [address] [id number] [place] [address] Feb, [facility] [place] [facility] [address] [id number] [place] [address] Feb, [facility] [place] [facility] [address] [id number] [place] [address] Feb, [facility] [place] [facility] [address] [id number] [place] [address] Feb, [facility] [place] [facility] [address] [id number] [place] [address] Feb, [facility] [place] [facility] [address] [id number] [address] Feb, [facility] [place] [facility] [address] [id number] [place] [address] 4348 Feb, [facility] [place] [facility] [address] [id number] [place] [address] 0020 Feb, [facility] [place] [facility] [address] [id number] [place] [address] 1[address] Feb, [facility] [place] [facility] [address] [id number] [place] [address] 5305 Feb, [facility] [place] [facility] [address] [id number] [place] [address] Feb, [facility] [place] [facility] [address] [id number] [place] [address] Feb, [facility] [place] [facility] [address] [id number] [place] [address]- 4342 Feb, [facility] [place] [facility] [address] [id number] [place] [address]- 6192 Feb, [facility] [place] [facility] [address] [id number] [place] [address]- 3481 Feb, [facility] [place] [facility] [address] [id number] [place] [address]- 5423 Feb, [facility] [place] [facility] [address] [id number] [place] [address]- 7876 Jan, [facility] [place] [facility] [address] [id number] [place] [address]- 4069 Jan, [facility] [place] [facility] [address] [id number] [place] [address]- 6817 Jan, [facility] [place] [facility] [address] [id number] [place] [address]- 7803 Jan, [facility] [place] [facility] [address] [id number] [place] [address]- 3881 Jan, [facility] [place] [facility] [address] [id number] [place] [address]- 3560 Jan, [facility] [place] [facility] [address] [id number] [place] [address]- 1771 16 Jan, 2014 [facility] [place] [facility] [address] [id number] [place] [address] 16 Jan, 2014 [facility] [place] [facility] [address] [id number] [place] [address]- 8117 Jan, [facility] [place] [facility] [address] [id number] [place] [address]- 2195 Jan, [facility] [place] [facility] [address] [id number] [place] [address]- 8431 Jan, [facility] [place] [facility] [address] [id number] [place] [address]- 9488 Dec, [facility] [place] [facility] [address] [id number] [place] [address]- 4446 Dec, [facility] [place] [facility] [address] [id number] [place] [address]- 2159 Nov, [facility] [place] [facility] [address] [id number] [place] [address]- 7314 Nov, [facility] [place] [facility] [address] [id number] [place] [address]- 5761 Nov, [facility] [place] [facility] [address] [id number] [place] [address]- 5929 Nov, [facility] [place] [facility] [address] [id number] [place] [address]- 9265 Nov, [facility] [place] [facility] [address] [id number] [place] [address]- 5265 Nov, [facility] [place] [facility] [address] [id number] [place] [address] 3716 Nov, [facility] [place] [facility] [address] [id number] [place] [address]- 2113 Oct, [facility] [place] [facility] [address] [id number] [place] [address]- 0236 Oct, [facility] [place] [facility] [address] [id number] [place] [address]- 7250 Oct, [facility] [place] [facility] [address] [id number] [place] [address] Oct, [facility] [place] [facility] [address] [id number] [place] [address]- 2974 30 Sep, 2013 [facility] [place] [facility] [address] [id number] [place] [address]- 2416 Sep, [facility] [place] [facility] [address] [id number] [place] [address]- 4264 Sep, [facility] [place] [facility] [address] [id number] [place] [address]- 0757 Sep, [facility] [place] [facility] [address] [id number] [place] [address]- 1512 Sep, [facility] [place] [facility] [address] [id number] [place] [address]- 6824 Sep, [facility] [place] [facility] [address] [id number] [place] [address]- 2808 Sep, [facility] [place] [facility] [address] [id number] [place] [address]- 5461 Sep, [facility] [place] [facility] [address] [id number] [place] [address]- 1546 Sep, [facility] [place] [facility] [address] [id number] [place] [address]- 3180 Sep, [facility] [place] [facility] [address] [id number] [place] [address]- 6751 Sep, [facility] [place] [facility] [address] [id number] [place] [address]- 9297 Sep, [facility] [place] [facility] [address] [id number] [place] [address]- 6824 Sep, [facility] [place] [facility] [address] [id number] [place] [address]- 2698 Sep, [facility] [place] [facility] [address] [id number] [place] [address]- 6793 August, [facility] [place] [facility] [address] [id number] [place] [address]- 1596 August, [facility] [place] [facility] [address] [id number] [place] [address]- 9901 August, [facility] [address] [id number] [place] [address]- 9323 August, [facility] [address] [id number] [place] [address]- 7313 August, [facility] [address] [id number] [place] [address]- 9799 August, [facility] [address] [id number] [place] [address]- 7039 August, [facility] [address] [id number] [place] [address]- 1159 August, [facility] [address] [id number] [place] [address]- 9041 August, [facility] [address] [id number] [place] [address]- 6544 August, [facility] [address] [id number] [place] [address]- 3458 August, [facility] [address] [id number] [place] [address]- 3172 August, [facility] [address] [id number] [place] [address]- 4415 August, [facility] [address] [id number] [place] [address]- 2955 August, [facility] [place] [facility] [address] [id number] [place] [address]- 9616 August, [facility] [place] [facility] [address] [id number] [place] [address]- 9938 August, [facility] [place] [facility] [address] [id number] [place] [address]- 3041 August, [facility] [place] [facility] [address] [id number] [place] [address]- 0112 August, [facility] [place] [facility] [address] [id number] [place] [address]385 August, [facility] [place] [facility] [address] [id number] [place] [address]- 7186 Jul, [facility] [place] [facility] [address] [id number] [place] [address]- 7382 Jul, [facility] [place] [facility] [address] [id number] [place] [address]- 5571 Jul, [facility] [place] [facility] [address] [id number] [place] [address]- 8469 Jul, [facility] [place] [facility] [address] [id number] [place] [address]- 9602 Jun, [facility] [place] [facility] [address] [id number] [place] [address]- 0606 Jun, [facility] [place] [facility] [address] [id number] [place] [address]- 6274 Jun, [facility] [place] [facility] [address] [id number] [place] [address]- 7071 Jun, [facility] [place] [facility] [address] [id number] [place] [address]- 0979 Jun, [facility] [place] [facility] [address] [id number] [place] [address]- 5312 Jun, [facility] [place] [facility] [address] [id number] [place] [address]- 0188 Jun, [facility] [place] [facility] [address] [id number] [place] [address]- 0264 Jun, [facility] [place] [facility] [address] [id number] [place] [address]- 3350 Jun, [facility] [place] [facility] [address] [id number] [place] [address]- 1185 Jun, [facility] [place] [facility] [address] [id number] [place] [address]- 2485 May, [facility] [place] [facility] [address] [id number] [place] [address]- 2556 May, [facility] [place] [facility] [address] [id number] [place] [address]- 2786 May, [facility] [place] [facility] [address] [id number] [place] [address]- 3360 May, [facility] [place] [facility] [address] [id number] [place] [address]- 2548 May, [facility] [place] [facility] [address] [id number] [place] [address]- 7396 May, [facility] [place] [facility] [address] [facility] [id number] [place] [address]- 7004 May, [facility] [place] [facility] [address] [facility] [id number] [place] [address]- 8365 May, [facility] [place] [facility] [address] [id number] [place] [address]- 1636 May, [facility] [place] [facility] [address] [facility] [id number] [place] [address]- 8734 May, [facility] [place] [facility] [address] [facility] [address] [id number] [place] [address]- 8191 18 May, 2013 [facility] [place] [facility] [address] [facility] [address] [id number] [place] [address]- 2547 17 May, 2013 [facility] [place] [facility] [address] [facility] [id number] [place] [address]- 2546 May, [facility] [place] [facility] [address] [id number] [place] [address]- 1484 May, [facility] [place] [facility] [address] [facility] [id number] [place] [address]- 8696 10 May, 2013 [facility] [place] [facility] [address] [facility] [id number] [place] [address]- 7438 07 May, 2013 [facility] [address] [id number] [place] [address]- 1840 07 May, 2013 [facility] [address] [id number] [place] [address]- 2787 17 Apr, 2013 [facility] [address] [id number] [place] [address]- 9842 Apr, [facility] [address] [id number] [place] [address]- 6612 Apr, [facility] [address] [id number] [place] [address]- 3302 Apr, [facility] [address] [id number] [place] [address]- 4386 Apr, [facility] [address] [id number] [place] [address]- 0703 Apr, [facility] [address] [id number] [place] [address]- 2355 Apr, [facility] [address] [id number] [place] [address]- 8086 Mar, [facility] [address] [id number] [place] [address]- 7797 Mar, [facility] [address] [id number] [place] [address]- 0636 Mar, [facility] [address] [id number] [place] [address]- 5975 Mar, [facility] [address] [id number] [place] [address]- 2852 Mar, [facility] [address] [id number] [place] [address]- 3856 Mar, [facility] [address] [id number] [place] [address]- 4138 Mar, [facility] [place] [facility] [address] [id number] [place] [address]- 2535 Mar, [facility] [place] [facility] [address] [id number] [place] [address]- 9138 Mar, [facility] [place] [facility] [address] [id number] [place] [address]- 8104 Mar, [facility] [place] [facility] [address] [id number] [place] [address]- 5719 Mar, [facility] [address] [id number] [place] [address]- 8325 Feb, [facility] [place] [facility] [address] [id number] [place] [address]- 4447 Feb, [facility] [address] [id number] [place] [address]- 7875 Feb, [facility] [address] [id number] [place] [address]- 9305 20 Feb, 2013 [facility] [place] [facility] [address] [id number] [place] [address]- 8160 Feb, [facility] [place] [facility] [address] [id number] [place] [address]- 0023 19 Feb, 2013 [facility] [place] [facility] [address] [id number] [place] [address]- 6854 15 Feb, 2013 [facility] [place] [facility] [address] [id number] [address]- 9023 14 Feb, 2013 [facility] [place] [facility] [address] [id number] [place] [address]- 0866 14 Feb, 2013 [facility] [place] [facility] [address] [id number] [place] [address]- 4472 13 Feb, 2013 [facility] [place] [facility] [address] [id number] [place] [address]- 3188 13 Feb, 2013 [facility] [place] [facility] [address] [id number] [place] [address]- 0626 Feb, [facility] [place] [facility] [address] [id number] [place] [address]- 7020 Feb, [facility] [place] [facility] [address] [id number] [place] [address]- 4474 Feb, [facility] [place] [facility] [address] [id number] [place] [address]- 8948 Feb, [facility] [place] [facility] [address] [id number] [place] [address]- 0183 Feb, [facility] [place] [facility] [address] [id number] [place] [address]- 5578 Jan, [facility] [place] [facility] [address] [id number] [place] [address]- 5990 Jan, [facility] [place] [facility] [address] [id number] [place] [address]- 9374 Jan, [facility] [place] [facility] [address] [id number] [place] [address]- 1847 Jan, [facility] [place] [facility] [address] [id number] [place] [address]- 2076 Jan, [facility] [place] [facility] [address] [id number] [place] [address]- 7771 Jan, [facility] [place] [facility] [address] [id number] [place] [address]- 8660 Jan, [facility] [place] [facility] [address] [id number] [place] [address]- 9478 Jan, [facility] [place] [facility] [address] [id number] [place] [address]- 5319 10 Jan, 2013 [facility] [place] [facility] [address] [id number] [place] [address]- 6295 27 Dec, 2012 [facility] [place] [facility] [address] [id number] [place] [address]- 5086 20 Dec, 2012 [facility] [place] [facility] [address] [id number] [place] [address]- 5957 19 Dec, 2012 [facility] [place] [facility] [address] [id number] [place] [address]- 4750 10 Dec, 2012 [facility] [place] [facility] [address] [id number] [place] [address]- 2826 04 Dec, 2012 [facility] [place] [facility] [address] [id number] [place] [address]- 5710 03 Dec, 2012 [facility] [place] [facility] [address] [id number] [place] [address]- 5356 Nov, [facility] [place] [facility] [address] [id number] [place] [address]- 8508 Nov, [facility] [place] [facility] [address] [id number] [place] [address]- 2258 Nov, [facility] [place] [facility] [address] [id number] [place] [address]- 6055 Nov, [facility] [place] [facility] [address] [id number] [place] [address]- 4585 Nov, [facility] [place] [facility] [address] [id number] [place] [address]- 9994 Nov, [facility] [place] [facility] [address] [id number] [place] [address]- 4109 Nov, [facility] [place] [facility] [address] [id number] [place] [address]- 2959 Nov, [facility] [place] [facility] [address] [id number] [place] [address]- 2548 14 Nov, 2012 [facility] [place] [facility] [address] [id number] [place] [address]- 9840 Nov, [facility] [place] [facility] [address] [id number] [place] [address]- 2546 Oct, [facility] [place] [facility] [address] [id number] [place] [address]- 0413 Oct, [facility] [place] [facility] [address] [id number] [place] [address]- 2780 Oct, [facility] [place] [facility] [address] [id number] [place] [address]- 0510 Oct, [facility] [place] [facility] [address] [id number] [place] [address]- 6454 Oct, [facility] [place] [facility] [address] [id number] [place] [address]- 4295 Oct, [facility] [place] [facility] [address] [id number] [place] [address]- 7130 Oct, [facility] [place] [facility] [address] [id number] [place] [address]- 6807 Oct, [facility] [place] [facility] [address] [id number] [place] [address]- 1345 Sep, [facility] [place] [facility] [address] [id number] [place] [address]- 6354 Sep, [facility] [place] [facility] [address] [id number] [place] [address]- 2179 Sep, [facility] [place] [facility] [address] [id number] [place] [address]- 7221 Sep, [facility] [place] [facility] [address] [id number] [place] [address]- 4284 Sep, [facility] [place] [facility] [address] [id number] [place] [address]- 7228 Sep, [facility] [place] [facility] [address] [id number] [place] [address]- 1915 Sep, [facility] [place] [facility] [address] [id number] [place] [address]- 8154 Sep, [facility] [place] [facility] [address] [id number] [place] [address]- 7771 August, [facility] [place] [facility] [address] [id number] [place] [address]- 4504 August, [facility] [address] [id number] [place] [address]- 3345 August, [facility] [address] [id number] [place] [address]- 5614 August, [facility] [address] [id number] [place] [address]- 5020 August, [facility] [address] [id number] [place] [address]- 5687 Jul, [facility] [address] [id number] [place] [address]- 5845 Jul, [facility] [address] [id number] [place] [address]- 6755 Jul, [facility] [address] [id number] [place] [address]- 4631 Jul, [facility] [address] [id number] [place] [address] Jul, [facility] [address] [id number] [place] [address] 18 Jun, 2012 [facility] [address] [id number] [place] [address] 18 Jun, 2012 [facility] [address] [id number] [place] [address] 7969 15 Jun, 2012 [facility] [address] [id number] [place] [address] 14 Jun, 2012 [facility] [place] [facility] [address] [id number] [place] [address] 12 Jun, 2012 [facility] [place] [facility] [address] [id number] [place] [address] 08 Jun, 2012 [facility] [address] [id number] [place] [address] 08 Jun, 2012 [facility] [address] [id number] [place] [address] Jun, [facility] [address] [id number] [place] [address] Jun, [facility] [address] [id number] [place] [address] May, [facility] [address] [id number] [place] [address] May, [facility] [address] [id number] [place] [address] May, [facility] [address] [id number] [place] [address] May, [facility] [address] [id number] [place] [address] Apr, [facility] [address] [id number] [place] [address] 7973 Apr, [facility] [address] [id number] [place] [address]85 Apr, [facility] [address] [id number] [place] [address] Apr, [facility] [address] [id number] [place] [address] 35[address] Apr, [facility] [address] [id number] [place] [address] Apr, [facility] [address] [id number] [place] [address]134 Apr, [facility] [address] [id number] [place] [address] Mar, [facility] [address] [place] [id number] Mar, [facility] [address] [id number] [place] [address] Mar, [facility] [place] [facility] [address] [id number] [place] [address]63 Mar, [facility] [place] [facility] [address] [id number] [place] [address] Mar, [facility] [place] [facility] [address] [id number] [place] [address] 78[address] Mar, [facility] [place] [facility] [address] [id number] [place] [address] 69[address] Mar, [facility] [place] [facility] [address] [id number] [place] [address] Mar, [facility] [place] [facility] [address] [id number] [place] [address] 120[address] Mar, [facility] [place] [facility] [address] [id number] [place] [address] Mar, [facility] [place] [facility] [address] [id number] [place] [address]87 Mar, [facility] [place] [facility] [address] [id number] [place] [address] Mar, [facility] [place] [facility] [address] [id number] [place] [address] 7469 Mar, [facility] [place] [facility] [address] [id number] [place] [address] Mar, [facility] [place] [facility] [address] [id number] [address] Mar, [facility] [place] [facility] [address] [id number] [place] [address] Mar, [facility] [place] [facility] [address] [id number] [place] [address]451 Mar, [facility] [place] [facility] [address] [id number] [place] [address]- 8784 Feb, [facility] [place] [facility] [address] [id number] [place] [address]279 Feb, [facility] [place] [facility] [address] [id number] [place] [address] Feb, [facility] [place] [facility] [address] [id number] [place] [address] 7716 Feb, [facility] [place] [facility] [address] [id number] [place] [address]- [address]99 Feb, [facility] [place] [facility] [address] [id number] [place] [address]- [address] Feb, [facility] [place] [facility] [address] [id number] [place] [address]- [address] Feb, [facility] [place] [facility] [address] [id number] [place] [address]- 3207 Feb, [facility] [place] [facility] [address] [id number] [place] [address]- 8479 Feb, [facility] [place] [facility] [address] [id number] [place] [address]- 2199 Feb, [facility] [place] [facility] [address] [id number] [place] [address] 4661 Feb, [facility] [place] [facility] [address] [id number] [place] [address]- 67[address] Feb, [facility] [place] [facility] [address] [id number] [place] [address] 4609 Feb, [facility] [place] [facility] [address] [id number] [place] [address] Feb, [facility] [place] [facility] [address] [id number] [place] [address] 1404 Feb, [facility] [place] [facility] [address] [id number] [place] [address]- 6544 Feb, [facility] [place] [facility] [address] [id number] [place] [address] 140[address] Jan, [facility] [place] [facility] [address] [id number] [place] [address] 5899 Jan, [facility] [place] [facility] [address] [id number] [place] [address]- 1299 Jan, [facility] [place] [facility] [address] [id number] [place] [address]- [address] Jan, [facility] [place] [facility] [address] [id number] [place] [address]- 0419 Jan, [facility] [place] [facility] [address] [id number] [place] [address]- 3288 Jan, [facility] [place] [facility] [address] [id number] [place] [address] Jan, [facility] [place] [facility] [address] [id number] [place] [address] Jan, [facility] [place] [facility] [address] [id number] [place] [address] Jan, [facility] [place] [facility] [address] [id number] [place] [address] 1824 Jan, [facility] [place] [facility] [address] [id number] [place] [address] 8097 Jan, [facility] [place] [facility] [address] [id number] [place] [address]487 Jan, [facility] [place] [facility] [address] [id number] [place] [address] Jan, [facility] [place] [facility] [address] [id number] [place] [address] 4310 Jan, [facility] [place] [facility] [address] [id number] [place] [address] 2926 Jan, [facility] [place] [facility] [address] [id number] [place] [address] 4947 Jan, [facility] [place] [facility] [address] [id number] [place] [address] 04 Jan, 2012 [facility] [place] [facility] [address] [id number] [place] [address] 3466 21 Dec, 2011 [facility] [place] [facility] [address] [id number] [place] [address] 0656 20 Dec, 2011 [facility] [place] [facility] [address] [id number] [place] [address] 2546 18 Dec, 2011 [facility] [place] [facility] [address] [id number] [place] [address] 2546 18 Dec, 2011 [facility] [place] [facility] [address] [id number] [place] [address] 2546 10 Dec, 2011 [facility] [place] [facility] [address] [id number] [place] [address]- 3476 10 Dec, 2011 [facility] [place] [facility] [address] [id number] [place] [address]- 6420 10 Dec, 2011 [facility] [place] [facility] [address] [id number] [place] [address] 3365 07 Dec, 2011 [facility] [place] [facility] [address] [id number] [place] [address] 8872 30 Nov, 2011 [facility] [place] [facility] [address] [id number] [place] [address]- 3656 Nov, [facility] [place] [facility] [address] [id number] [place] [address] 2917 Nov, [facility] [place] [facility] [address] [id number] [place] [address] 2545 Nov, [facility] [place] [facility] [address] [id number] [place] [address] 2546 Nov, [facility] [place] [facility] [address] [id number] [place] [address] 9678 Nov, [facility] [place] [facility] [address] [id number] [place] [address] 2545 30 Oct, 2011 [facility] [place] [facility] [address] [id number] [place] [address] 8439 30 Oct, 2011 [facility] [address] [id number] [place] [address] 2675 Oct, [facility] [place] [facility] [address] [id number] [place] [address] 0586 Oct, [facility] [address] [id number] [place] [address] 5585 Oct, [facility] [place] [facility] [address] [id number] [place] [address] 3981 Oct, [facility] [address] [id number] [place] [address] 2392 Oct, [facility] [place] [facility] [address] [id number] [place] [address] 6374 Sep, [facility] [place] [facility] [address] [id number] [place] [address] 9162 Sep, [facility] [place] [facility] [address] [id number] [place] [address] 1543 Sep, [facility] [place] [facility] [address] [id number] [place] [address] 3741 Sep, [facility] [address] [id number] [place] [address] 8256 Sep, [facility] [place] [facility] [address] [id number] [place] [address]- 2544 15 Sep, 2011 [facility] [place] [facility] [address] [id number] [place] [address] 2363 14 Sep, 2011 [facility] [place] [facility] [address] [id number] [place] [address]- 0298 11 Sep, 2011 [facility] [place] [facility] [address] [id number] [place] [address]- 9198 05 Sep, 2011 [facility] [place] [facility] [address] [id number] [place] [address] 0436 Sep, [facility] [address] [id number] [place] [address] 9989 August, [facility] [place] [facility] [address] [id number] [place] [address]- 4316 August, [facility] [place] [facility] [address] [id number] [place] [address]- 5898 August, [facility] [place] [facility] [address] [id number] [place] [address] 9146 August, [facility] [address] [id number] [place] [address]- 7641 August, [facility] [place] [facility] [address] [id number] [place] [address]- 3685 Jul, [facility] [place] [facility] [address] [id number] [place] [address]- 9198 Jul, [facility] [address] [id number] [place] [address] 4182 Jul, [facility] [place] [facility] [address] [id number] [place] [address]- 7127 Jul, [facility] [place] [facility] [address] [id number] [place] [address] 2379 Jul, [facility] [place] [facility] [address] [id number] [place] [address] 0821 Jul, [facility] [place] [facility] [address] [id number] [place] [address] 1518 Jul, [facility] [place] [facility] [address] [id number] [place] [address]- 6620 Jun, [facility] [place] [facility] [address] [id number] [place] [address] 4058 Jun, [facility] [place] [facility] [address] [id number] [place] [address]- 6549 Jun, [facility] [place] [facility] [address] [id number] [place] [address] 3886 Jun, [facility] [place] [facility] [address] [id number] [place] [address] 4694 Jun, [facility] [place] [facility] [address] [id number] [place] [address]- 5976 May, [facility] [place] [facility] [address] [id number] [place] [address] 5136 May, [facility] [place] [facility] [address] [id number] [place] [address]- 8159 May, [facility] [place] [facility] [address] [id number] [place] [address] 8992 May, [facility] [place] [facility] [address] [id number] [place] [address] 2722 May, [facility] [place] [facility] [address] [facility] [id number] [place] [address]- 6484 May, [facility] [place] [facility] [address] [id number] [place] [address]- 4474 Apr, [facility] [place] [facility] [address] [facility] [id number] [place] [address]- 5019 Mar, [facility] [place] [facility] [address] [facility] [id number] [place] [address]- 8986 Feb, [facility] [place] [facility] [address] [id number] [place] [address] 2549 Feb, [facility] [place] [facility] [address] [id number] [place] [address]- 254 Feb, [facility] [place] [facility] [address] [id number] [place] [address]- 5170 Feb, [facility] [place] [facility] [address] [facility] [id number] [place] [address]- 6042 Jan, [facility] [place] [facility] [address] [id number] [place] [address]- 5528 Jan, [facility] [place] [facility] [address] [id number] [place] [address]- 9776 26 Jan, 2011 [facility] [address] [id number] [place] [address] 24 Jan, 2011 [facility] [address] [id number] [place] [address]- 3940 14 Jan, 2011 [facility] [address] [id number] [place] [address]- 3432 19 Dec, 2010 [facility] [address] [id number] [place] [address]- 4881 Oct, [facility] [address] [id number] [place] [address]- 3198 August, [facility] [address] [id number] [place] [address]- 2063 29 Mar, 2010 [facility] [address] [id number] [place] [address]- 0979 27 Mar, 2010 [facility] [address] [id number] [place] [address]- 2958 16 Mar, 2010 [facility] [address] [id number] [place] [address]- 8618 15 Mar, 2010 [facility] [address] [id number] [place] [address]- 4497 15 Mar, 2010 [facility] [place] [facility] [address] [id number] [place] [address]- 4287 08 Mar, 2010 [facility] [place] [facility] [address] [id number] [place] [address]- 0667 03 Mar, 2010 [facility] [place] [facility] [address] [id number] [place] [address]- 6849 24 Feb, 2010 [facility] [place] [facility] [address] [id number] [place] [address]- 6045 24 Feb, 2010 [facility] [place] [facility] [address] [id number] [place] [address]- 2222 15 Feb, 2010 [facility] [place] [facility] [address] [id number] [place] [address]- 0521 19 Jan, 2010 [facility] [place] [facility] [address] [id number] [place] [address]- 7589 Jan, [facility] [place] [facility] [address] [id number] [place] [address]- 1666 Jan, [facility] [place] [facility] [address] [id number] [place] [address]- 8989 Nov, [facility] [place] [facility] [address] [id number] [place] [address]- 0800 Sep, [facility] [place] [facility] [address] [id number] [place] [address]- 4342 August, [facility] [place] [facility] [address] [id number] [place] [address]- 8238 30 Mar, 2009 [facility] [place] [facility] [address] [id number] [place] [address]- 5980 Mar, [facility] [place] [facility] [address] [id number] [place] [address]- 7893 17 Feb, 2009 [facility] [place] [facility] [address] [id number] [place] [address]- 3978 Feb, [facility] [place] [facility] [address] [id number] [place] [address]- 1390 10 Feb, 2009 [facility] [place] [facility] [address] [id number] [place] [address]- 9003 10 Feb, 2009 [facility] [place] [facility] [address] [id number] [place] [address]- 3098 06 Feb, 2009 [facility] [place] [facility] [address] [id number] [place] [address]- 4046 27 Jan, 2009 [facility] [place] [facility] [address] [id number] [place] [address]- 6632 Jan, [facility] [place] [facility] [address] [id number] [place] [address]- 5600 Jan, [facility] [address] [id number] [place] [address]- 3895 Jan, [facility] [id number] [address]- 4131 Nov, [facility] [id number] [address]- 8730 Sep, [facility] [id number] [address]- 3709 August, [facility] [id number] [place] [address]- [address]92 Jul, [facility] [id number] [address]- 1009 May, IMMUNIZATIONS No Known Immunizations SOCIAL HISTORY [...] Knee Surgery 07/16/17 Hospitalization History [facility] [place]- left hand/wrist swelling 10/09/2017
--- OUTSIDE RECORDS SUMMARY | 2018-01-01 12:22 | XMS REPORT ---
Author Author SENAIT DUNLAP [facility] Address [address] [place] [address] Care Team Providers Care White Mixing Operator Name Role Phone SENAIT DUNLAP Unavailable PROBLEMS Type Condition ICD9-CM Code OLB31-RA Code Onset Dates Condition Status SNOMED Code Problem History of common bile duct surgery Z98.89 Active 978101905 Problem Barretts esophagus K22.70 Active 163161981 Problem 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 Active 05981219 Problem Colon polyp K63.5 Active 76044542 Problem Bilateral low back pain without sciatica M54.5 Active 748746425 Problem Screening breast examination Z12.39 Active 884403044 Problem Postmenopausal Z78.0 Active 92336478 Problem Osteopenia M85.80 Active 419796962 Problem Cigarette nicotine dependence without complication F17.210 Active 39367946 Problem Type 2 diabetes mellitus with diabetic peripheral angiopathy without gangrene E11.51 Active 289575081 Problem Vascular dementia without behavioral disturbance F01.50 Active [id number] Problem Unspecified atherosclerosis of [place] arteries of extremities, unspecified extremity I70.209 Active 837107572378556 Problem Arthritis M19.90 Active 3643920 Problem Chronic atrial fibrillation I48.2 Active 670498354 Problem Chronic obstructive pulmonary disease with acute lower respiratory infection J44.0 Active 205931305 Problem Other chronic pancreatitis K86.1 Active 234254078 Problem Stress incontinence of urine N39.3 Active 21766615 Problem Controlled type 2 diabetes mellitus without complication, without long -term current use of insulin E11.9 Active 292650210 Problem Unspecified psychosis F29 Active 15826359 Problem Xeroderma Q80.9 Active 26753086 Problem COPD (chronic obstructive pulmonary disease) J44.9 Active 03439275 Problem Dementia without behavioral disturbance, unspecified dementia type F03.90 Active 80849662 Problem Gastroparesis K31.84 Active 975574056 Problem Type 2 diabetes mellitus with diabetic neuropathy, without long-term current use of insulin E11.40 Active 58842704 Problem Osteoporosis M81.0 Active 28549090 Problem Atherosclerosis of [place] artery of both lower extremities with intermittent claudication I70.213 Active 422570670466992 Problem Hyperlipidemia E78.5 Active 29853506 Problem Diabetic polyneuropathy associated with type 2 diabetes mellitus E11.42 Active 82954514 Problem Essential tremor G25.0 Active 29876413 Problem 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.118 Active 2866270368649 Problem Generalized anxiety disorder F41.1 Active 967556266 Problem Gastroesophageal reflux disease, esophagitis presence not specified K21.9 Active 311610924 Problem Coronary artery disease involving [place] coronary artery of [place] 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 I25.118 Active 9408769522647 Problem Postconcussion syndrome F07.81 Active 91807465 Problem Chronic pain syndrome G89.4 Active 622107291 Problem Migraine without aura and without status migrainosus, not intractable G43.009 Active 296793174 Problem Paroxysmal atrial fibrillation I48.0 Active 048363686 Problem Migraine without aura and with status migrainosus, not intractable G43.001 Active 600784979 Problem Cervicalgia M54.2 Active 4087411305794 Problem Acute exacerbation of chronic obstructive pulmonary disease (COPD) J44.1 Active 732044652 Problem Major depressive disorder, recurrent episode, moderate F33.1 Active 584326542 Problem Crohn''s disease without complication, unspecified gastrointestinal tract location K50.90 Active 79526265 Problem Chronic fatigue R53.82 Active 16213066 Problem Bipolar affective disorder, currently depressed, moderate F31.32 Active 360334011 ALLERGIES No Information ENCOUNTERS Encounter Location Date Diagnosis [facility] [address] [facility] [id number] [address] Nov, [facility] [id number], [place] [address] Nov, [place] [id number], [place] [address] Oct, [facility] [id number], [place] [address] Oct, Bipolar affective disorder, currently depressed, moderate F31.32 ; Vascular dementia without behavioral disturbance F01.50 and Generalized anxiety disorder F41.1 [facility] [id number] [place] [address] 86447- 5776 Oct, [facility] [id number] [place] [address] 16469- 7580 Oct, [facility] [id number] [place] [address] 17532- 5256 Oct, Edema of both legs R60.0 [facility] [id number] [place] [address] 04320- 5740 Oct, [facility] [id number] [place] [address] 31543- 3075 Sep, [facility] [id number] [place] [address] 24906- 2809 Sep, [facility] [id number] [place] [address] 65427- 8653 Sep, [facility] [id number] [place] [address] 45950- 4113 Sep, Encounter for well woman exam with routine gynecological exam Z01.419 ; Screening for STDs (sexually transmitted diseases) Z11.3 ; Screening breast examination Z12.31 and Overweight (BMI 25.0-29.9) E66.3 [facility] [address], [place] [address] Sep, [facility] [address] [id number] [address] Sep, [facility] [id number] [place] [address] 38682- 9655 Sep, [facility] [id number] [place] [address] 09691- 2205 August, [facility] [id number] [address] 1666 August, [facility] [id number] [address] August, Type 2 diabetes mellitus with diabetic neuropathy, without long-term current use of insulin E11.40 and Sprain of right ankle, unspecified ligament, initial encounter S93.401A [facility] [address] [id number] [address] August, [facility] [id number] [place] [address] 80696- 6201 August, [facility] [id number] [place] [address] 41723- 9517 August, [facility] [id number] [place] [address] 51773- 5897 August, Gastroesophageal reflux disease, esophagitis presence not specified K21.9 [facility] [id number] [place] [address] 36676- 3692 August, [facility] [id number] [place] [address] 83047- 7087 August, [facility] [id number] [place] [address] 60784- 7639 August, [facility] [id number] [place] [address] 20118- 3972 August, Type 2 diabetes mellitus with diabetic neuropathy, without long-term current use of insulin E11.40 and Elevated liver enzymes R74.8 [facility] [address] [place] [address] 67860- 7197 Jul, [facility] [id number] [place] [address] 37031- 1063 Jul, Cough R05 [facility] [address] [place] [address] 67794- 4985 Jul, [facility] [address], [place] [address] 0056 Jul, [facility] [id number] [place] [address] 88999- 3794 Jul, Bipolar affective disorder, currently depressed, moderate F31.32 ; Vascular dementia without behavioral disturbance F01.50 and Generalized anxiety disorder F41.1 [facility] [id number] [place] [address] 61259- 6735 Jul, [facility] [address] 15768- 7591 Jul, Type 2 diabetes mellitus with diabetic neuropathy, without long-term current use of insulin E11.40 and Elevated liver enzymes R74.8 [facility] [address] 98970- 4980 Jul, [facility] [id number] [place] [address] 57008- 0734 Jul, [facility] [id number] [place] [address] 19021- 6399 Jul, [facility] [id number] [place] [address] 66148- 2588 Jul, Post-menopausal Z78.0 [facility] [address] 02123- 4036 Jul, Stress incontinence of urine N39.3 [facility] [id number] [place] [address] 79952- 0803 Jul, [facility] [id number] [place] [address] 00040- 5429 Jul, [facility] [id number] [place] [address] 06241- 9439 Jul, Stress incontinence of urine N39.3 and Cough R05 [facility] [id number] [place] [address] 26795- 3238 Jul, [facility] [id number] [place] [address] 17472- 9725 Jul, [facility] [id number] [place] [address] 80429- 5886 Jul, [facility] [id number] [place] [address] 64669- 0869 Jul, Gastroesophageal reflux disease, esophagitis presence not specified K21.9 [facility] [address] [place] [address] 48190- 1164 Jun, Diabetic polyneuropathy associated with type 2 diabetes mellitus E11.42 [facility] [id number] [place] [address] 38190- 7088 Jun, Diabetic polyneuropathy associated with type 2 diabetes mellitus E11.42 ; Coronary artery disease involving [place] coronary artery of [place] 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 I25.118 and Paroxysmal atrial fibrillation I48.0 [place] [id number] [place] [address] 97044- 2488 Jun, [place] [id number] [place] [address] 87028- 6925 Jun, [facility] [id number] [place] [address] 96753 2547 Jun, Gastroenteritis K52.9 [facility] [id number] [place] [address] 40115 2546 Jun, Gastroenteritis K52.9 [facility] [address] [place] [address] 54301 2543 Jun, [facility] [id number] [place] [address] 13464 2542 Jun, [facility] [address] [place] [address] 57782- 2315 Jun, Sprain of right ankle, unspecified ligament, initial encounter S93.401A ; Type 2 diabetes mellitus with diabetic neuropathy, without long-term current use of insulin E11.40 ; Atherosclerosis of [place] artery of both lower extremities with intermittent claudication I70.213 ; 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.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 ; Chronic atrial fibrillation I48.2 and Crohn''s disease without complication, unspecified gastrointestinal tract location K50.90 [facility] [id number] [place] [address] 61960 -4445 17 Jun, 2017 Cough R05 and Chronic obstructive pulmonary disease with acute lower respiratory infection J44.0 [facility] [id number] [place] [address] 94768- 2215 Jun, [place] [id number] [place] [address] 86538- 0770 Jun, Coughing R05 ; Unspecified atherosclerosis of [place] arteries of extremities, unspecified extremity I70.209 ; Type 2 diabetes mellitus with diabetic peripheral angiopathy without gangrene E11.51 ; Crohn''s disease without complication, unspecified gastrointestinal tract location K50.90 ; Other chronic pancreatitis K86.1 and Chronic atrial fibrillation I48.2 [facility] [id number] [place] [address] 20683 -7529 Jun, [place] [id number] [place] [address] 89487- 3095 Jun, Bipolar affective disorder, currently depressed, moderate F31.32 ; Vascular dementia without behavioral disturbance F01.50 and Generalized anxiety disorder F41.1 [place] [id number] [place] [address] 10161- 8838 May, Generalized anxiety disorder F41.1 [place] [id number] [place] [address] 20183- 5041 May, [place] [id number] [place] [address] 53810- 7822 May, [place] [id number] [place] [address] 39515- 5920 May, Coughing R05 [place] [id number] [place] [address] 54487- 5700 09 May, 2017 [place] [id number] [place] [address] 09584- 6676 May, Bipolar affective disorder, currently depressed, moderate F31.32 ; Vascular dementia without behavioral disturbance F01.50 and Generalized anxiety disorder F41.1 [place] [id number] [place] [address] 02767- 7164 Apr, Generalized anxiety disorder F41.1 [place] [id number] [place] [address] 84314- 1856 Apr, [place] [id number] [place] [address] 71923- 5370 Apr, Vascular dementia without behavioral disturbance F01.50 ; Generalized anxiety disorder F41.1 and Bipolar affective disorder, currently depressed, moderate F31.32 [place] [id number] [place] [address] 29524- 0030 Apr, Generalized anxiety disorder F41.1 [facility] [id number] [place] [address] 72093 -2845 Apr, Cough R05 and Acute exacerbation of chronic obstructive pulmonary disease (COPD) J44.1 [place] [id number] [place] [address] 61433- 2051 Apr, [facility] IN [facility] [id number] [place] [address] 89998 -9782 Mar, Cough R05 and Cigarette nicotine dependence without complication F17.210 [place] [id number] [place] [address] 64961- 7903 Mar, [place] [id number] [place] [address] 25147- 1799 Feb, Generalized anxiety disorder F41.1 ; Major depressive disorder, recurrent episode, moderate F33.1 ; Vascular dementia without behavioral disturbance F01.50 and Unspecified psychosis F29 [place] [id number] [place] [address] 15470- 6117 Feb, [place] [id number] [place] [address] 51547- 4224 Feb, [place] [id number] [place] [address] 99747- 5297 Feb, Generalized anxiety disorder F41.1 [place] [id number] [place] [address] 22237- 1022 Feb, Generalized anxiety disorder F41.1 [place] [address] 92854- 4115 Feb, Dizziness R42 ; Chronic fatigue R53.82 ; Postconcussion syndrome F07.81 ; Fall, initial encounter W19.XXXA and Disorientation R41.0 [place] [address] 83469- 3886 Feb, Postconcussion syndrome F07.81 ; Injury of head, initial encounter S09.90XA ; Fall, initial encounter W19.XXXA ; Disorientation R41.0 and Acute cystitis with hematuria N30.01 [place] [address] 05104- 2572 Jan, Gastroesophageal reflux disease, esophagitis presence not specified K21.9 ; Post-menopausal Z78.0 and Migraine without aura and without status migrainosus, not intractable G43.009 [place] [id number] [place] [address] 43871- 2920 Jan, [place] [id number] [place] [address] 97909- 4115 Jan, Generalized anxiety disorder F41.1 ; Major depressive disorder, recurrent episode, moderate F33.1 ; Vascular dementia without behavioral disturbance F01.50 and Unspecified psychosis F29 [place] [address] 59862- 4105 Jan, Pneumonia of left lower lobe due to infectious organism J18.1 [place] [id number] [place] [address] 46854- 2609 Jan, Migraine without aura and with status migrainosus, not intractable G43.001 [facility] [address], [place] [address] 04 Jan, 2017 Migraine without aura and without status migrainosus, not intractable G43.009 [facility] [address] [place] [address] 13092- 3980 19 Dec, 2016 Hematoma T14.8 [facility] [id number] [place] [address] 07261- 8309 Dec, [facility] [id number] [place] [address] 11347 -1701 Nov, Fatigue, unspecified type R53.83 [place] [address] [place] [address] 09257- 8679 Nov, Scabies B86 and Coronary artery disease involving [place] coronary artery of [place] 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 I25.118 [place] [id number] [place] [address] 18458- 8380 Nov, [facility] [id number] [place] [address] 47891- 3468 Nov, [place] [id number] [place] [address] 14957- 2122 Oct, [place] [id number] [place] [address] 25369- 7737 Oct, Generalized anxiety disorder F41.1 and Major depressive disorder, recurrent episode, moderate F33.1 [facility] [address] [place] [address] 05355- 9032 Oct, Cramp of both lower extremities R25.2 [place] [id number] [place] [address] 82952- 2244 Oct, Leg cramps R25.2 [place] [id number] [place] [address] 42420- 0532 Oct, Chronic pain syndrome G89.4 [place] [address] [address]- 8654 17 Oct, 2016 [facility] [address] [place] [address] 88522- 1594 14 Oct, 2016 [facility] [id number] [place] [address] 60174- 6373 11 Oct, 2016 Routine gynecological examination Z01.419 and Screening for breast cancer Z12.31 [place] [id number] [place] [address] 38393- 8933 28 Sep, 2016 Diarrhea R19.7 [place] [id number] [place] [address] 05251- 1333 Sep, Back pain M54.9 [place] [id number] [place] [address] 87182- 3216 Sep, [place] [id number] [place] [address] 27676- 2578 Sep, [facility] [id number] [place] [address] 64602 -7350 August, Xeroderma Q80.9 [place] [id number] [place] [address] 57718- 5913 August, Dementia without behavioral disturbance, unspecified dementia type F03.90 [place] [id number] [place] [address] 96094- 0281 August, Chronic pain syndrome G89.4 [place] [id number] [place] [address] 69086- 7387 August, [facility] [id number] [place] [address] 05389- 7110 August, Hyperlipidemia E78.5 ; Other fatigue R53.83 and Other specified hypotension I95.89 [facility] [address], [place] [address] August, Dysuria R30.0 ; Other fatigue R53.83 and Other specified hypotension I95.89 [facility] [id number] [place] [address] 06579- 0413 August, [facility] [address] 31142- 1989 Jul, Pain in left knee M25.562 and Gastroenteritis K52.9 [facility] [address] 59593- 6173 Jul, [facility] [address] 27990- 4284 Jul, Diarrhea R19.7 [facility] [address] 97440 -4444 Jul, Spider bite, accidental or unintentional, initial encounter T63.301A [place] [address] 75570- 1632 Jul, Primary osteoarthritis of right knee M17.11 and Arthritis M19.90 [facility] [address] 69703- 5551 Jul, Generalized anxiety disorder F41.1 and Major depressive disorder, recurrent episode, moderate F33.1 [facility] [id number] [place] [address] 55629- 6580 Jul, Type 2 diabetes mellitus with diabetic polyneuropathy E11.42 and Temporal headache R51 [facility] [id number] [place] [address] 38359- 8873 Jul, Back pain M54.9 [facility] [id number] [place] [address] 18817- 7282 Jul, [facility] [address] 86373- 4339 Jul, [facility] [id number] [place] [address] 81388- 8724 Jun, Nausea R11.0 [facility] [address] [place] [address] Jun, Acute suppurative otitis media of both ears without spontaneous rupture of tympanic membranes, recurrence not specified H66.003 and COPD exacerbation J44.1 [facility] [address] 97699- 3428 Jun, Generalized anxiety disorder F41.1 [place] [address] 22097- 0694 16 Jun, 2016 [facility] [address] 56056 -2127 Jun, [facility] [address] 96688 -0715 Jun, Shortness of breath R06.02 and COPD exacerbation J44.1 [place] [address] 71540- 8486 Jun, Eczema, unspecified type L30.9 [place] [address] 35515- 1453 Jun, [place] [address] 71245- 8483 May, [place] [id number] [place] [address] 32513- 2094 May, Muscle cramping R25.2 [place] [id number] [place] [address] 82813- 8631 May, [place] [address] 08167- 0566 Apr, Diarrhea R19.7 [place] [address] 28008- 5349 Apr, [place] [id number] [place] [address] 39237- 5541 Apr, Chronic pain syndrome G89.4 [place] [id number] [place] [address] 89785- 4267 16 Apr, 2016 Cramp of both lower extremities R25.2 and Vascular dementia without behavioral disturbance F01.50 [place] [address] 96829- 4789 Apr, Type 2 diabetes mellitus with diabetic polyneuropathy E11.42 and Cigarette nicotine dependence without complication F17.210 [place] [address] 11668- 7952 Mar, Generalized anxiety disorder F41.1 [place] [address] 23934- 7105 Feb, Generalized anxiety disorder F41.1 and Major depressive disorder, recurrent episode, moderate F33.1 [place] [address] 41867- 8449 Feb, [facility] [address] [address] Feb, Dysuria R30.0 and Acute cystitis with hematuria N30.01 [place] [address] [address] Jan, [place] [address] [address] Jan, [place] [address] [address] Jan, [place] [address] [address] [address] [address] Jan, [facility] [address] [address] Jan, Wasp sting, accidental or unintentional, initial encounter T63.461A [place] [address] [address]781- 3655 06 Jan, 2016 Encounter for immunization Z23 [place] [address] 42114- 2649 Jan, [facility] [address], [place] [address] 9974 Jan, [facility] [id number] [place] [address] 98110- 3420 28 Dec, 2015 Generalized anxiety disorder F41.1 and Major depressive disorder, recurrent episode, moderate F33.1 [facility] [id number] [place] [address] 71243- 4569 21 Dec, 2015 Routine gynecological examination Z01.419 ; Postmenopausal Z78.0 ; Screening breast examination Z12.39 ; Osteopenia M85.80 and Breast cancer screening Z12.39 [facility] [id number] [place] [address] 58773- 9534 20 Dec, 2015 [facility] [address] [id number] [place] [address] 81971- 8721 19 Dec, 2015 [facility] [id number] [place] [address] 77871- 3563 16 Dec, 2015 [facility] [id number] [place] [address] 50294- 1994 16 Dec, 2015 [facility] [id number] [place] [address] 88495- 3414 14 Dec, 2015 [facility] [id number] [place] [address] 10276- 9799 Dec, [facility] [id number] [place] [address] 28704- 8509 Nov, [facility] [id number] [place] [address] 41232 -9112 Nov, Cough R05 ; Other viral agents as the cause of diseases classified elsewhere B97.89 and Acute upper respiratory infection, unspecified J06.9 [facility] [address], [place] [address]- 0106 Nov, [facility] [id number] [place] [address] 56702- 6369 Nov, [facility] [address], [place] [address]- 7387 Nov, [facility] [address], [place] [address]- 7943 Nov, [facility] [address], [place] [address]- 9005 Nov, [facility] [id number] [place] [address] 95162- 1820 Oct, [facility] [id number] [place] [address] 55854- 5511 Oct, [facility] [id number], [place] [address]- 1086 Oct, [facility] [id number] [place] [address] 70043- 8394 Oct, Chronic pain syndrome G89.4 [facility] [address], [place] [address]- 0234 Sep, Generalized anxiety disorder F41.1 and Major depressive disorder, recurrent episode, moderate F33.1 [facility] [address], [place] [address]- 4141 Sep, [facility] [address], [place] [address]- 4173 Sep, [facility] [address], [place] [address]- 3941 14 Sep, 2015 Generalized anxiety disorder F41.1 [facility] [address], [place] [address]- 4979 13 Sep, 2015 Cramp of both lower extremities R25.2 and Cervicalgia M54.2 [facility] [address], [place] [address]- 6914 06 Sep, 2015 Generalized anxiety disorder F41.1 [facility] [address] [address]- 4788 Sep, [facility] [id number] [place] [address] 12788 -1077 August, Rash R21 ; Itching L29.9 and Allergic response, subsequent encounter T78.40XD [facility] [address] [id number] [place] [address] 77624- 1432 August, Primary insomnia F51.01 [facility] [id number] [place] [address] 91265 -0970 August, Rash R21 ; Itching L29.9 and Allergic response, initial encounter T78.40XA [place] [address] [id number] [place] [address] 26087- 9220 August, [place] [address] [place] [id number] [place] [address] 78759- 8314 August, Cramp of both lower extremities R25.2 [place] [address] [id number] [place] [address] 47557- 9176 August, Back pain M54.9 [place] [address] [place] [id number] [place] [address] 65735- 6935 August, [place] [address] [place] [id number] [place] [address] 78136- 5141 August, [facility] [id number] [place] [address] 90909 -6136 August, Cramp of both lower extremities R25.2 [place] [address] [place] [id number] [place] [address] 80870- 8089 August, [place] [address] [place] [id number] [place] [address] 75088- 3952 August, Syncope R55 ; Paroxysmal atrial fibrillation I48.0 ; Dementia without behavioral disturbance, unspecified dementia type F03.90 and Chronic pain syndrome G89.4 [place] [address] [place] [id number] [place] [address] 58247- 4839 August, Type 2 diabetes mellitus with diabetic polyneuropathy E11.42 and Syncope R55 [facility] [id number] [place] [address] 13386- 1014 Jul, [facility] [id number] [place] [address] 13939- 6064 Jul, [facility] [id number] [place] [address] 13873- 3322 Jul, [facility] [id number] [place] [address] 45371- 8290 Jul, [facility] [id number] [place] [address] 03828- 8679 Jul, [facility] [id number] [place] [address] 86472- 9359 Jul, UTI (urinary tract infection) N39.0 [facility] [id number] [place] [address] 55904- 0930 Jul, [facility] [id number] [place] [address] 57925- 6677 Jul, Major depressive disorder, recurrent episode, moderate F33.1 and Generalized anxiety disorder F41.1 [facility] [address] [place] [address] [id number] [place] [address] 44070- 0309 Jul, Generalized anxiety disorder F41.1 [facility] [id number] [place] [address] 27551- 4384 Jul, Diarrhea R19.7 [facility] [id number] [place] [address] 31557- 3006 Jul, [facility] [id number] [place] [address] 33752- 7447 Jun, [facility] [id number] [place] [address] 48714- 1207 Jun, Eczema L30.9 [facility] [address], [place] [address]- 5094 Jun, [facility] [address], [place] [address]- 9756 Jun, COPD (chronic obstructive pulmonary disease) J44.9 [facility] [address], [place] [address]- 6536 Jun, [facility] [id number] [place] [address] 15761- 8675 Jun, Major depressive disorder, recurrent episode, moderate F33.1 and Generalized anxiety disorder F41.1 [facility] [address], [place] [address]- 2956 May, [facility] [address], [place] [address]- 1361 May, UTI (urinary tract infection) N39.0 [facility] [address], [place] [address]- 8522 May, [facility] [address], [place] [address]- 0408 May, [facility] [address], [place] [address]- 0823 May, [facility] [address], [place] [address]- 8156 May, [facility] [address], [place] [address]- 1608 Apr, Major depressive disorder, recurrent episode, moderate F33.1 and Generalized anxiety disorder F41.1 [facility] [address], [place] [address]- 0197 Apr, COPD (chronic obstructive pulmonary disease) J44.9 [facility] [address], [place] [address]- 4466 Apr, [facility] [address] [address]- 1616 Apr, Atrial flutter I48.92 [facility] [id number] [place] [address] 03512- 1744 Apr, [facility] [id number] [place] [address] 30694- 1672 Apr, [facility] [id number] [place] [address] 31662- 4539 Mar, [facility] [id number] [place] [address] 57972- 2579 Mar, [facility] [id number] [place] [address] 45264- 9223 Mar, [facility] [id number] [place] [address] 10127- 9505 Mar, Hyperlipidemia E78.5 ; Type 2 diabetes mellitus with diabetic polyneuropathy E11.42 ; Major depressive disorder, recurrent episode, moderate F33.1 and Chronic pain syndrome G89.4 [facility] [address] [id number] [place] [address] 91980- 3419 Mar, [facility] [id number] [place] [address] 08028- 4018 Mar, [facility] [id number] [place] [address] 06556- 4600 Mar, [facility] [id number] [place] [address] 02407- 5713 Mar, [facility] [id number] [place] [address] 16884- 8100 Feb, COPD (chronic obstructive pulmonary disease) J44.9 and Back pain M54.9 [facility] [address], [place] [address]- 0817 Feb, [facility] [id number] [place] [address] 30396- 6471 Feb, [facility] [address], [place] [address]- 0321 Feb, [facility] [id number] [place] [address] 21265- 2942 Feb, [facility] [address], [place] [address]- 9687 Feb, [facility] [id number] [place] [address] 68453- 4884 Feb, [facility] [id number] [place] [address] 51880- 2785 Feb, [facility] [id number] [place] [address] 21813- 2122 Feb, [facility] [id number] [place] [address] 62897- 3942 Feb, Diabetes E11.9 ; Back pain M54.9 and COPD (chronic obstructive pulmonary disease) J44.9 [facility] [address] [place] [address] 26535- 0336 Jan, [facility] [id number] [place] [address] 15567- 0568 Jan, Major depression, recurrent F33.9 and Generalized anxiety disorder F41.1 [facility] [address] [place] [address] 61876- 9988 Jan, Chronic pain G89.29 [facility] [address], [place] [address]- 5586 Jan, [facility] [id number] [place] [address] 54971- 7953 Jan, [facility] [id number] [place] [address] 20177- 7605 Jan, [facility] [address], [place] [address]- 8286 Jan, [facility] [id number] [place] [address] 35704- 4182 Jan, Nicotine dependence F17.200 [facility] [address] 70445- 6964 Jan, Nicotine dependence F17.200 and Back pain M54.9 [facility] [id number] [place] [address] 96546- 6531 Jan, [facility] [id number] [place] [address] 47843- 5844 28 Dec, 2014 [facility] [id number] [place] [address] 55458- 5196 25 Dec, 2014 Anxiety, generalized 300.02 and Major depression, recurrent 296.30 [facility] [id number] [place] [address] 60405- 1770 24 Dec, 2014 [facility] [id number] [place] [address] 19499- 8073 21 Dec, 2014 [facility] [id number] [place] [address] 42669- 4817 17 Dec, 2014 [facility] [id number] [place] [address] 50584- 6362 15 Dec, 2014 [facility] [id number] [place] [address] 56714- 9970 14 Dec, 2014 [facility] [id number] [place] [address] 24028- 7641 11 Dec, 2014 [facility] [id number] [place] [address] 06515- 6167 10 Dec, 2014 [facility] [id number] [place] [address] 03307- 7500 08 Dec, 2014 Skin tear 879.8 [facility] [address] [place] [address] 98208- 0753 08 Dec, 2014 Routine gynecological examination V72.31 ; Breast cancer screening V76.10 and Family history of breast cancer in first degree relative V16.3 [facility] [address], [place] [address]- 2540 Dec, [facility] [id number] [place] [address] 21151- 8919 Dec, [facility] [address], [place] [address]- 2358 Nov, [facility] [id number] [place] [address] 34902- 4992 Nov, [facility] [id number] [place] [address] 32721- 0014 Nov, Poor balance 781.99 and Vascular dementia, uncomplicated 290.40 [facility] [id number] [place] [address] 85074- 7977 Nov, [facility] [address] [id number] [place] [address] 32938- 6502 Nov, Major depression, recurrent 296.30 and Anxiety, generalized 300.02 [facility] [id number] [place] [address] 69673- 1763 Nov, [facility] [id number] [place] [address] 80538- 9083 Nov, [facility] [address], [place] [address]- 6688 Nov, [facility] [id number] [place] [address] 45267- 3927 Nov, [facility] [address], [place] [address]- 5435 Nov, Vascular dementia, uncomplicated 290.40 and Lumbago 724.2 [facility] [address], [place] [address]- 8542 Nov, [facility] [id number] [place] [address] 06512- 1002 Nov, [facility] [address], [place] [address]- 7439 Nov, [facility] [address], [place] [address]- 6359 Oct, [facility] [address], [place] [address]- 7023 Oct, [facility] [id number] [place] [address] 06159- 7050 Oct, [facility] [address], [place] [address]- 3804 Oct, COPD (chronic obstructive pulmonary disease) 496 and Hyperlipidemia 272.4 [facility] [address], [place] [address]- 9083 Oct, Major depression, recurrent 296.30 and Anxiety, generalized 300.02 [facility] [id number] [address]- 0182 Oct, [facility] [address], [place] [address]- 5080 Oct, [facility] [address], [place] [address]- 1547 Oct, [facility] [address], [place] [address]- 6132 Sep, Lumbago 724.2 and Anxiety state, unspecified 300.00 [facility] [address], [place] [address]- 6583 Sep, [facility] [address], [place] [address]- 9077 Sep, [facility] [address], [place] [address]- 1281 August, [facility] [id number], [place] [address]- 8291 August, Major depression, recurrent 296.30 ; Anxiety, generalized 300.02 and No condition on [place] II V71.09 [facility] [id number] [place] [address]- 7238 August, [facility] [address] [facility] [id number] [place]- 9396 August, [facility] [address], [place] [address]- 1789 Jul, [facility] [address] [facility] [id number] [place] [address]- 8247 Jul, [facility] [address] [place] [address]- 7089 Jul, [facility] [id number] [place] [address]- 8417 Jun, [facility] [address] [place] [address]- 1176 Jun, [facility] [id number] [address]- 5455 Jun, [facility] [address] [place] [address]- 2004 Jun, [facility] [id number], [place] [address]- 8193 Jun, [facility] [address] [place] [address]- 3518 Jun, [facility] [id number] [address]- 0100 23 Jun, 2014 [facility] [id number]- 7546 17 Jun, 2014 [facility] [address] [facility] [id number] 5863 Jun, [facility] [id number] 4101 Jun, [facility] [place] [facility] [address] [id number] [place] [address]- 4811 10 Jun, 2014 [facility] [place] [facility] [address] [id number] [place] [address]- 2910 10 Jun, 2014 [facility] [place] [facility] [address] [id number] [place] [address]- 9442 07 Jun, 2014 [facility] [place] [facility] [address] [id number] [place] [address]- 1547 07 Jun, 2014 [facility] [place] [facility] [address] [id number] [place] [address]- 8685 Jun, [facility] [place] [facility] [address] [id number] [place] [address]- 9928 Jun, 2014 [facility] [place] [facility] [address] [id number] [place] [address]- 2621 May, [facility] [place] [facility] [address] [id number] [place] [address]- 9108 May, 2014 [facility] [place] [facility] [address] [id number] [place] [address]- 8386 May, [facility] [place] [facility] [address] [facility] [id number] [place] [address]- 3813 May, 2014 [facility] [place] [facility] [address] [facility] [id number] [place] [address]- 5924 May, 2014 [facility] [place] [facility] [address] [id number] [place] [address]- 2056 May, 2014 [facility] [place] [facility] [address] [id number] [place] [address]- 2544 May, 2014 [facility] [place] [facility] [address] [id number] [place] [address]- 6841 12 May, 2014 [facility] [place] [facility] [address] [facility] [id number] [place] [address]- 9229 May, 2014 [facility] [place] [facility] [address] [facility] [id number] [place] [address]- 7985 May, 2014 [facility] [place] [facility] [address] [id number] [place] [address]- 2726 May, 2014 [facility] [place] [facility] [address] [id number] [place] [address]- 7566 May, 2014 [facility] [place] [facility] [address] [id number] [place] [address]- 3436 May, 2014 [facility] [place] [facility] [address] [id number] [place] [address]- 7189 May, [facility] [place] [facility] [address] [id number] [place] [address]- 0330 Apr, [facility] [place] [facility] [address] [id number] [place] [address] Apr, [facility] [place] [facility] [address] [id number] [place] [address] Apr, [facility] [place] [facility] [address] [id number] [place] [address] Apr, [facility] [place] [facility] [address] [id number] [place] [address] Apr, [facility] [place] [facility] [address] [id number] [place] [address] Apr, [facility] [place] [facility] [address] [id number] [place] [address] Apr, [facility] [place] [facility] [address] [id number] [place] [address] Apr, [facility] [place] [facility] [address] [id number] [place] [address] Apr, [facility] [place] [facility] [address] [id number] [place] [address] Apr, [facility] [place] [facility] [address] [id number] [place] [address] Apr, [facility] [place] [facility] [address] [id number] [place] [address] Apr, [facility] [place] [facility] [address] [id number] [place] [address] Mar, [facility] [place] [facility] [address] [id number] [place] [address] 31 Mar, 2014 [facility] [place] [facility] [address] [id number] [place] [address] 30 Mar, 2014 [facility] [place] [facility] [address] [id number] [place] [address] 30 Mar, 2014 [facility] [place] [facility] [address] [id number] [place] [address] Mar, [facility] [place] [facility] [address] [id number] [place] [address] Mar, [facility] [place] [facility] [address] [id number] [place] [address] Mar, [facility] [place] [facility] [address] [id number] [place] [address] 19 Mar, 2014 [facility] [place] [facility] [address] [id number] [place] [address] 15 Mar, 2014 [facility] [place] [facility] [address] [id number] [place] [address] 15 Mar, 2014 [facility] [place] [facility] [address] [id number] [place] [address] 15 Mar, 2014 [facility] [place] [facility] [address] [id number] [place] [address] 15 Mar, 2014 [facility] [place] [facility] [address] [id number] [place] [address] 15 Mar, 2014 [facility] [place] [facility] [address] [id number] [place] [address] 15 Mar, 2014 [facility] [place] [facility] [address] [id number] [place] [address] Mar, [facility] [place] [facility] [address] [id number] [place] [address] Mar, [facility] [place] [facility] [address] [id number] [place] [address] Mar, [facility] [place] [facility] [address] [id number] [place] [address] Mar, [facility] [place] [facility] [address] [id number] [place] [address] Mar, [facility] [place] [facility] [address] [id number] [place] [address] Mar, [facility] [place] [facility] [address] [id number] [place] [address] Feb, [facility] [place] [facility] [address] [id number] [place] [address] Feb, [facility] [place] [facility] [address] [id number] [place] [address] Feb, [facility] [place] [facility] [address] [id number] [place] [address] Feb, [facility] [place] [facility] [address] [id number] [place] [address] Feb, [facility] [place] [facility] [address] [id number] [place] [address] Feb, [facility] [place] [facility] [address] [address] [id number], [place] [address] Feb, [facility] [place] [facility] [address] [id number] [place] [address] Feb, [facility] [place] [facility] [address] [id number] [place] [address] 5515 Feb, [facility] [place] [facility] [address] [id number], [place] [address] 3314 Feb, [facility] [place] [facility] [address] [id number] [place] [address]- 4248 Feb, [facility] [place] [facility] [address] [id number] [place] [address] Feb, [facility] [place] [facility] [address] [id number] [place] [address] Feb, [facility] [place] [facility] [address] [id number] [place] [address]- 3903 Feb, [facility] [place] [facility] [address] [id number] [place] [address]- 3327 Feb, [facility] [place] [facility] [address] [id number] [place] [address]- 0300 Feb, [facility] [place] [facility] [address] [id number] [place] [address]- 9237 Feb, [facility] [place] [facility] [address] [id number] [place] [address]- 3300 Jan, [facility] [place] [facility] [address] [id number] [place] [address]- 0379 Jan, [facility] [place] [facility] [address] [id number] [place] [address]- 6162 Jan, [facility] [place] [facility] [address] [id number] [place] [address]- 6698 Jan, [facility] [place] [facility] [address] [id number] [place] [address]- 6004 Jan, [facility] [place] [facility] [address] [id number] [place] [address]- 5991 Jan, [facility] [place] [facility] [address] [id number] [place] [address]- 9482 16 Jan, 2014 [facility] [place] [facility] [address] [id number] [place] [address] 16 Jan, 2014 [facility] [place] [facility] [address] [id number] [place] [address]- 7226 Jan, [facility] [place] [facility] [address] [id number] [place] [address]- 1459 Jan, [facility] [place] [facility] [address] [id number] [place] [address]- 3871 Jan, [facility] [place] [facility] [address] [id number] [place] [address]- 6735 Dec, [facility] [place] [facility] [address] [id number] [place] [address]- 4771 Dec, [facility] [place] [facility] [address] [id number] [place] [address]- 4369 Nov, [facility] [place] [facility] [address] [id number] [place] [address]- 9409 Nov, [facility] [place] [facility] [address] [id number] [place] [address]- 2864 Nov, [facility] [place] [facility] [address] [id number] [place] [address]- 9939 Nov, [facility] [place] [facility] [address] [id number] [place] [address]- 6475 Nov, [facility] [place] [facility] [address] [id number] [place] [address]- 4668 Nov, [facility] [place] [facility] [address] [id number], [place] [address]57 Nov, [facility] [place] [facility] [address] [id number], [place] [address]- 9910 Oct, [facility] [place] [facility] [address] [id number] [place] [address]- 8283 Oct, [facility] [place] [facility] [address] [id number], [place] [address]- 5873 Oct, [facility] [place] [facility] [address] [id number] [place] [address] Oct, [facility] [place] [facility] [address] [id number] [place] [address]- 1660 30 Sep, 2013 [facility] [place] [facility] [address] [id number] [place] [address]- 7828 Sep, [facility] [place] [facility] [address] [id number] [place] [address]- 4843 Sep, [facility] [place] [facility] [address] [id number] [place] [address]- 4836 Sep, [facility] [place] [facility] [address] [id number] [place] [address]- 4680 Sep, [facility] [place] [facility] [address] [id number] [place] [address]- 5704 Sep, [facility] [place] [facility] [address] [id number] [place] [address]- 1066 Sep, [facility] [place] [facility] [address] [id number] [place] [address]- 1549 Sep, [facility] [place] [facility] [address] [id number] [place] [address]- 9688 Sep, [facility] [place] [facility] [address] [id number] [place] [address]- 0560 Sep, [facility] [place] [facility] [address] [id number] [place] [address]- 7664 Sep, [facility] [place] [facility] [address] [id number] [place] [address]- 9867 Sep, [facility] [place] [facility] [address] [id number] [place] [address] 1939 Sep, [facility] [place] [facility] [address] [id number] [place] [address]- 0445 Sep, [facility] [place] [facility] [address] [id number] [place] [address]- 2445 August, [facility] [place] [facility] [address] [id number] [place] [address]- 5725 August, [facility] [place] [facility] [address] [id number] [place] [address]- 4342 August, [facility] [address] [id number] [place] [address]- 1793 August, [facility] [address] [id number] [place] [address]- 6007 August, [facility] [address] [id number] [place] [address]- 7588 August, [facility] [address] [id number] [place] [address]- 0324 August, [facility] [address] [id number] [place] [address]- 8101 August, [facility] [address] [id number] [place] [address]- 6202 August, [facility] [address] [id number] [place] [address]- 0500 August, [facility] [address] [id number] [place] [address]- 9217 August, [facility] [address] [id number] [place] [address]- 7108 August, [facility] [address] [id number] [place] [address]- 2379 August, [facility] [address] [id number] [place] [address]- 9726 August, [facility] [place] [facility] [address] [id number] [place] [address]- 4373 August, [facility] [place] [facility] [address] [id number] [place] [address]- 8378 August, [facility] [place] [facility] [address] [id number] [place] [address]- 6214 August, [facility] [place] [facility] [address] [id number] [place] [address]- 8782 August, [facility] [place] [facility] [address] [id number] [place] 5998 August, [facility] [place] [facility] [address] [id number] [place] [address]- 3175 Jul, [facility] [place] [facility] [address] [id number] [place] [address]- 4923 Jul, [facility] [place] [facility] [address] [id number] [place] [address]- 0530 Jul, [facility] [place] [facility] [address] [id number] [place] [address]- 3372 Jul, [facility] [place] [facility] [address] [id number] [place] [address]- 7840 Jun, [facility] [place] [facility] [address] [id number] [place] [address]- 4206 Jun, [facility] [place] [facility] [address] [id number] [place] [address]- 8834 Jun, [facility] [place] [facility] [address] [id number] [place] [address]- 5683 Jun, [facility] [place] [facility] [address] [id number] [place] [address]- 9069 Jun, [facility] [place] [facility] [address] [id number] [place] [address]- 9072 Jun, [facility] [place] [facility] [address] [id number] [place] [address] 1955 Jun, [facility] [place] [facility] [address] [id number] [place] [address]- 0068 Jun, [facility] [place] [facility] [address] [id number] [place] [address]- 6458 Jun, [facility] [place] [facility] [address] [id number] [place] [address]- 8517 Jun, [facility] [place] [facility] [address] [id number] [place] [address]- 9447 May, [facility] [place] [facility] [address] [id number] [place] [address]- 8716 May, [facility] [place] [facility] [address] [id number] [place] [address]- 2716 May, [facility] [place] [facility] [address] [id number] [place] [address]- 6397 May, [facility] [place] [facility] [address] [id number] [place] [address]- 2541 May, [facility] [place] [facility] [address] [id number] [place] [address]- 1506 May, [facility] [place] [facility] [address] [facility] [id number] [place] [address]- 9519 May, [facility] [place] [facility] [address] [facility] [id number] [place] [address]- 7244 May, [facility] [place] [facility] [address] [id number] [place] [address]- 3488 May, [facility] [place] [facility] [address] [facility] [id number] [place] [address]- 5751 May, [facility] [place] [facility] [address] [facility] [id number] [place] [address]- 0264 18 May, 2013 [facility] [place] [facility] [address] [facility] [id number] [place] [address]- 6486 17 May, 2013 [facility] [place] [facility] [address] [facility] [id number] [place] [address]- 2546 May, [facility] [place] [facility] [address] [id number] [place] [address]- 8440 May, [facility] [place] [facility] [address] [facility] [id number] [place] [address]- 7286 10 May, 2013 [facility] [place] [facility] [address] [facility] [id number] [place] [address]- 6639 07 May, 2013 [facility] [address] [id number] [place] [address]- 6820 07 May, 2013 [facility] [address] [id number] [place] [address]- 3854 17 Apr, 2013 [facility] [address] [id number] [place] [address]- 7910 Apr, [facility] [address] [id number] [place] [address]- 5605 Apr, [facility] [address] [id number] [place] [address]- 5976 Apr, [facility] [address] [id number] [place] [address]- 3861 Apr, [facility] [address] [id number] [place] [address]- 4496 Apr, [facility] [address] [id number] [place] [address]- 8601 Apr, [facility] [address] [id number] [place] [address]- 3366 Mar, [facility] [address] [id number] [place] [address]- 4277 Mar, [facility] [address] [id number] [place] [address]- 0806 Mar, [facility] [address] [id number] [place] [address]- 6897 Mar, [facility] [address] [id number] [place] [address]- 3574 Mar, [facility] [address] [id number] [place] [address]- 7376 Mar, [facility] [address] [id number] [place] [address]- 8169 Mar, [facility] [place] [facility] [address] [id number] [place] [address]- 1774 Mar, [facility] [place] [facility] [address] [id number] [place] [address]- 8256 Mar, [facility] [place] [facility] [address] [id number] [place] [address]- 8372 Mar, [facility] [place] [facility] [address] [id number] [place] [address]- 8480 Mar, [facility] [address] [id number] [place] [address]- 0860 Feb, [facility] [place] [facility] [address] [id number] [place] [address]- 5836 Feb, [facility] [address] [id number] [place] [address]- 8025 Feb, [facility] [address] [id number] [place] [address]- 8455 20 Feb, 2013 [facility] [place] [facility] [address] [id number] [place] [address]- 0442 Feb, [facility] [place] [facility] [address] [id number] [place] [address]- 4904 19 Feb, 2013 [facility] [place] [facility] [address] [id number] [place] [address]- 6543 15 Feb, 2013 [facility] [place] [facility] [address] [id number], [place] [address]- 3412 14 Feb, 2013 [facility] [place] [facility] [address] [id number] [place] [address]- 7808 14 Feb, 2013 [facility] [place] [facility] [address] [id number], [place] [address]- 8546 13 Feb, 2013 [facility] [place] [facility] [address] [id number], [place] [address]- 5614 13 Feb, 2013 [facility] [place] [facility] [address] [id number], [place] [address]- 4443 Feb, [facility] [place] [facility] [address] [id number] [place] [address]- 9213 Feb, [facility] [place] [facility] [address] [id number] [place] [address]- 5083 Feb, [facility] [place] [facility] [address] [id number] [place] [address]- 1758 Feb, [facility] [place] [facility] [address] [id number] [place] [address]- 2125 Feb, [facility] [place] [facility] [address] [id number] [place] [address]- 4718 Jan, [facility] [place] [facility] [address] [id number] [place] [address]- 2501 Jan, [facility] [place] [facility] [address] [id number] [place] [address]- 5278 Jan, [facility] [place] [facility] [address] [id number] [place] [address]- 0364 Jan, [facility] [place] [facility] [address] [id number] [place] [address]- 5436 Jan, [facility] [place] [facility] [address] [id number] [place] [address]- 1230 Jan, [facility] [place] [facility] [address] [id number], [place] [address]- 2693 Jan, [facility] [place] [facility] [address] [id number], [place] [address]- 2370 Jan, [facility] [place] [facility] [address] [id number] [place] [address]- 7145 10 Jan, 2013 [facility] [place] [facility] [address] [id number] [place] [address]- 4737 27 Dec, 2012 [facility] [place] [facility] [address] [id number] [place] [address]- 6191 20 Dec, 2012 [facility] [place] [facility] [address] [id number] [place] [address]- 1794 19 Dec, 2012 [facility] [place] [facility] [address] [id number] [place] [address]- 1676 10 Dec, 2012 [facility] [place] [facility] [address] [id number] [place] [address]- 7016 04 Dec, 2012 [facility] [place] [facility] [address] [id number] [place] [address]- 7358 03 Dec, 2012 [facility] [place] [facility] [address] [id number] [place] [address]- 0401 Nov, [facility] [place] [facility] [address] [id number] [place] [address]- 3514 Nov, [facility] [place] [facility] [address] [id number] [place] [address]- 4874 Nov, [facility] [place] [facility] [address] [id number] [place] [address]- 7722 Nov, [facility] [place] [facility] [address] [id number] [place] [address]- 7241 Nov, [facility] [place] [facility] [address] [id number] [place] [address]- 0219 Nov, [facility] [place] [facility] [address] [id number] [place] [address]- 7717 Nov, [facility] [place] [facility] [address] [id number] [place] [address]- 7381 Nov, [facility] [place] [facility] [address] [id number] [place] [address]- 2542 14 Nov, 2012 [facility] [place] [facility] [address] [id number] [place] [address]- 8243 Nov, [facility] [place] [facility] [address] [id number] [place] [address]- 2546 Oct, [facility] [place] [facility] [address] [id number] [place] [address]- 5326 Oct, [facility] [place] [facility] [address] [id number] [place] [address]- 9510 Oct, [facility] [place] [facility] [address] [id number] [place] [address]- 4204 Oct, [facility] [place] [facility] [address] [id number] [place] [address]- 9440 Oct, [facility] [place] [facility] [address] [id number] [place] [address]- 6257 Oct, [facility] [place] [facility] [address] [id number] [place] [address]- 9511 Oct, [facility] [place] [facility] [address] [id number] [place] [address]- 0401 Oct, [facility] [place] [facility] [address] [id number] [place] [address]- 6264 Sep, [facility] [place] [facility] [address] [id number] [place] [address]- 2037 Sep, [facility] [place] [facility] [address] [id number] [place] [address]- 8753 Sep, [facility] [place] [facility] [address] [id number] [place] [address]- 8294 Sep, [facility] [place] [facility] [address] [id number] [place] [address]- 6553 Sep, [facility] [place] [facility] [address] [id number], [place] [address]- 9934 Sep, [facility] [place] [facility] [address] [id number] [place] [address]- 4322 Sep, [facility] [place] [facility] [address] [id number] [place] [address]- 9579 Sep, [facility] [place] [facility] [address] [id number] [place] [address]- 5660 August, [facility] [place] [facility] [address] [id number] [place] [address]- 3570 August, [facility] [address] [id number] [place] [address]- 9179 August, [facility] [address] [id number] [place] [address]- 8304 August, [facility] [address] [id number] [place] [address]- 5772 August, [facility] [address] [id number] [place] [address]- 6397 Jul, [facility] [address] [id number] [place] [address]- 3716 Jul, [facility] [address] [id number] [place] [address]- 6796 Jul, [facility] [address] [id number] [place] [address]- 1834 Jul, [facility] [address] [id number] [place] [address]- 7312 Jul, [facility] [address] [id number] [place] [address]- 1305 18 Jun, 2012 [facility] [address] [id number] [place] [address]- 1712 18 Jun, 2012 [facility] [address] [id number] [place] [address]- 5164 15 Jun, 2012 [facility] [address] [id number] [place] [address]- 5304 14 Jun, 2012 [facility] [place] [facility] [address] [id number] [place] [address]- 2786 12 Jun, 2012 [facility] [place] [facility] [address] [id number] [place] [address]- 6296 08 Jun, 2012 [facility] [address] [id number] [place] [address]- 9159 08 Jun, 2012 [facility] [address] [id number] [place] [address]- 8204 Jun, [facility] [address] [id number] [place] [address]- 7766 Jun, [facility] [address] [id number] [place] [address]- 5486 May, [facility] [address] [id number] [place] [address]- 1596 May, [facility] [address] [id number] [place] [address]- 2336 May, [facility] [address] [id number] [place] [address]- 5126 May, [facility] [address] [id number] [place] [address]- 9571 Apr, [facility] [address] [id number] [place] [address]- 5559 Apr, [facility] [address] [id number] [place] [address]- 1953 Apr, [facility] [address] [id number] [place] [address] Apr, [facility] [address] [id number] [place] [address] Apr, [facility] [address] [id number] [place] [address] Apr, [facility] [address] [id number] [place] [address] Apr, [facility] [address] [id number] [place] [address] Mar, [facility] [place] [id number] Mar, [facility] [address] [id number] [place] [address] Mar, [facility] [place] [facility] [address] [id number] [place] [address] Mar, [facility] [place] [facility] [address] [id number] [place] [address] Mar, [facility] [place] [facility] [address] [id number] [place] [address] Mar, [facility] [place] [facility] [address] [id number] [place] [address] Mar, [facility] [place] [facility] [address] [id number] [place] [address] Mar, [facility] [place] [facility] [address] [id number] [place] [address] Mar, [facility] [place] [facility] [address] [id number] [place] [address] Mar, [facility] [place] [facility] [address] [id number] [place] [address] Mar, [facility] [place] [facility] [address] [id number] [place] [address] Mar, [facility] [place] [facility] [address] [id number] [place] [address] Mar, [facility] [place] [facility] [address] [id number] [place] [address] Mar, [facility] [place] [facility] [address] [id number], [place] [address] Mar, [facility] [place] [facility] [address] [id number] [place] [address] Mar, [facility] [place] [facility] [address] [id number] [place] [address] Mar, [facility] [place] [facility] [address] [id number] [place] [address] Feb, [facility] [place] [facility] [address] [id number] [place] [address] Feb, [facility] [place] [facility] [address] [id number] [place] [address] Feb, [facility] [place] [facility] [address] [id number] [place] [address] Feb, [facility] [place] [facility] [address] [id number] [place] [address] Feb, [facility] [place] [facility] [address] [id number] [place] [address] Feb, [facility] [place] [facility] [address] [id number] [place] [address] Feb, [facility] [place] [facility] [address] [id number] [place] [address] Feb, [facility] [place] [facility] [address] [id number] [place] [address] Feb, [facility] [place] [facility] [address] [id number] [place] [address] Feb, [facility] [place] [facility] [address] [id number] [place] [address] Feb, [facility] [place] [facility] [address] [id number] [place] [address] Feb, [facility] [place] [facility] [address] [id number] [place] [address] Feb, [facility] [place] [facility] [address] [id number], [place] [address] Feb, [facility] [place] [facility] [address] [id number] [place] [address] Feb, [facility] [place] [facility] [address] [id number] [place] [address] Feb, [facility] [place] [facility] [address] [id number], [place] [address] Jan, [facility] [place] [facility] [address] [id number] [place] [address] Jan, [facility] [place] [facility] [address] [id number] [place] [address] Jan, [facility] [place] [facility] [address] [id number] [place] [address] Jan, [facility] [place] [facility] [address] [id number] [place] [address] Jan, [facility] [place] [facility] [address] [id number] [place] [address] Jan, [facility] [place] [facility] [address] [id number] [place] [address] Jan, [facility] [place] [facility] [address] [id number] [place] [address] Jan, [facility] [place] [facility] [address] [id number] [place] [address] Jan, [facility] [place] [facility] [address] [id number] [place] [address] Jan, [facility] [place] [facility] [address] [id number] [place] [address] Jan, [facility] [place] [facility] [address] [id number] [place] [address] Jan, [facility] [place] [facility] [address] [id number], [place] [address] Jan, [facility] [place] [facility] [address] [id number] [place] [address] Jan, [facility] [place] [facility] [address] [id number] [place] [address]- [address] Jan, [facility] [place] [facility] [address] [id number] [place] [address] Jan, [facility] [place] [facility] [address] [id number], [place] [address] 04 Jan, 2012 [facility] [place] [facility] [address] [id number] [place] [address] 21 Dec, 2011 [facility] [place] [facility] [address] [id number] [place] [address]- [address] 20 Dec, 2011 [facility] [place] [facility] [address] [id number] [place] [address] 18 Dec, 2011 [facility] [place] [facility] [address] [id number] [place] [address]46 18 Dec, 2011 [facility] [place] [facility] [address] [id number] [place] [address]46 10 Dec, 2011 [facility] [place] [facility] [address] [id number] [place] [address] 10 Dec, 2011 [facility] [place] [facility] [address] [id number] [place] [address] 10 Dec, 2011 [facility] [place] [facility] [address] [id number] [place] [address] 07 Dec, 2011 [facility] [place] [facility] [address] [id number] [place] [address] 30 Nov, 2011 [facility] [place] [facility] [address] [id number] [place] [address]- [address] Nov, [facility] [place] [facility] [address] [id number] [place] [address]- [address] Nov, [facility] [place] [facility] [address] [id number] [place] [address]- [address] Nov, [facility] [facility] [address] [id number] [place] [address] Nov, [facility] [place] [facility] [address] [id number] [place] [address] Nov, [facility] [place] [facility] [address] [id number] [place] [address] 30 Oct, 2011 [facility] [place] [facility] [address] [id number] [place] [address] 30 Oct, 2011 [facility] [address] [id number] [place] [address] Oct, [facility] [place] [facility] [address] [id number] [place] [address] Oct, [facility] [address] [id number] [place] [address] Oct, [facility] [place] [facility] [address] [id number] [place] [address] Oct, [facility] [address] [id number] [place] [address] Oct, [facility] [place] [facility] [address] [id number] [place] [address] Sep, [facility] [facility] [address] [id number] [place] [address] Sep, [facility] [address] [id number] [place] [address] Sep, [facility] [place] [facility] [address] [id number] [place] [address] Sep, [facility] [address] [id number] [place] [address] Sep, [facility] [address] [id number] [place] [address]- [address] 15 Sep, 2011 [facility] [facility] [address] [id number] [place] [address] 14 Sep, 2011 [facility] [address] [id number] [place] [address]- [address] 11 Sep, 2011 [facility] [address] [id number] [place] [address]- [address] 05 Sep, 2011 [facility] [place] [facility] [address] [id number] [place] [address]- [address] Sep, [facility] [address] [id number] [place] [address] August, [facility] [address] [id number] [place] [address] August, [facility] [address] [id number] [place] [address] August, [facility] [address] [id number] [place] [address]- [address] August, [facility] [address] [id number] [place] [address]- [address]68 August, [facility] [address] [id number] [place] [address] Jul, [facility] [address] [id number] [place] [address]- [address] Jul, [facility] [address] [id number] [place] [address] Jul, [facility] [address] [id number] [place] [address]- 7983 Jul, [facility] [address] [id number] [place] [address] Jul, [facility] [address] [id number] [place] [address] Jul, [facility] [address] [id number], [place] [address] Jul, [facility] [address] [id number] [place] [address]- [address] Jun, [facility] [address] [id number] [place] [address]- [address] Jun, [facility] [address] [id number] [place] [address]- [address] Jun, [facility] [address] [id number], [place] [address] Jun, [facility] [address] [id number] [place] [address]- [address] Jun, [facility] [address] [id number] [place] [address]- [address] May, [facility] [address] [id number] [place] [address]- [address]846 May, [facility] [address] [id number] [place] [address] 0862 May, [facility] [address] [id number] [place] [address]- [address]761 May, [facility] [address] [id number] [place] [address]- [address] May, [facility] [address] [facility] [id number] [place] [address]- [address] May, [facility] [address] [id number] [place] [address]- [address]85 Apr, [facility] [address] [facility] [id number] [place] [address]- 79[address] Mar, [facility] [address] [facility] [id number] [place] [address]- [address] Feb, [facility] [address] [id number] [place] [address] 2547 Feb, [facility] [address] [id number] [place] [address]- 2544 Feb, [facility] [address] [id number] [place] [address]- 4162 Feb, [facility] [address] [facility] [id number] [place] [address]- 8351 Jan, [facility] [address] [id number] [place] [address]- 5732 Jan, [facility] [address] [id number] [place] [address]- [address]893 26 Jan, 2011 [facility] [address] [id number] [place] [address] 24 Jan, 2011 [facility] [address] [id number] [place] [address]- 0628 14 Jan, 2011 [facility] [address] [id number] [place] [address]- 6531 19 Dec, 2010 [facility] [address] [id number] [place] [address]- [address] Oct, [facility] [address] [id number] [place] [address]- 1586 August, [facility] [address] [id number] [place] [address]- [address] 29 Mar, 2010 [facility] [address] [id number] [place] [address]- 3425 27 Mar, 2010 [facility] [address] [id number] [place] [address]- 0987 16 Mar, 2010 [facility] [address] [id number] [place] [address]- 6736 15 Mar, 2010 [facility] [address] [id number] [place] [address]- 6936 15 Mar, 2010 [facility] [address] [id number] [place] [address]- 9477 08 Mar, 2010 [facility] [address] [id number] [place] [address]- 1789 03 Mar, 2010 [facility] [address] [id number] [place] [address]- 0406 24 Feb, 2010 [facility] [address] [id number] [place] [address]- 4504 24 Feb, 2010 [facility] [address] [id number], [place] [address] 77[address] 15 Feb, 2010 [facility] [address] [id number] [place] [address]- 5467 19 Jan, 2010 [facility] [address] [id number], [place] [address]- [address] Jan, [facility] [address] [id number] [place] [address]- 3678 Jan, [facility] [address] [id number], [place] [address]- [address] Nov, [facility] [address] [id number] [place] [address]- 8208 Sep, [facility] [address] [id number], [place] [address]- 5[address] August, [facility] [address] [id number], [place] [address]- [address]198 30 Mar, 2009 [facility] [address] [id number], [place] [address]- 0191 Mar, [facility] [address] [id number], [place] [address]- 9[address] 17 Feb, 2009 [facility] [address] [id number], [place] [address]- [address]607 Feb, [facility] [address] [id number], [place] [address]- [address] 10 Feb, 2009 [facility] [address] [id number], [place] [address]- [address] 10 Feb, 2009 [facility] [address] [id number], [place] [address]- 7964 06 Feb, 2009 [facility] [address] [id number], [place] [address]- [address] 27 Jan, 2009 [facility] [address] [id number], [place] [address]- 6790 Jan, [facility] [address] [id number], [place] [address] Jan, [facility] [address] [id number], [place] [address] Jan, [facility] [id number], [place] [address]- [address] Nov, [facility] [id number], [place] [address]- [address]115 Sep, [facility] [id number], [place] [address]- 0915 August, [facility] [id number], [place] [address]- [address] Jul, [facility] [id number], [place] [address]- [address]28 May, IMMUNIZATIONS No Known Immunizations SOCIAL HISTORY [...] Knee Surgery 07/16/17 Hospitalization History [facility] [place]- left hand/wrist swelling 10/09/2017
--- OUTSIDE RECORDS SUMMARY | 2018-01-01 12:24 | XMS REPORT ---
Author Author SENAIT DUNLAP [facility] Address [address] [place] [address] Care Team Providers Care Food Safety Coordinator Name Role Phone SENAIT DUNLAP Unavailable PROBLEMS Type Condition ICD9-CM Code UBN17-CH Code Onset Dates Condition Status SNOMED Code Problem History of common bile duct surgery Z98.89 Active 346476989 Problem Barretts esophagus K22.70 Active 177806555 Problem 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 Active 58416403 Problem Colon polyp K63.5 Active 84750425 Problem Bilateral low back pain without sciatica M54.5 Active 276675389 Problem Screening breast examination Z12.39 Active 318043595 Problem Postmenopausal Z78.0 Active 96270607 Problem Osteopenia M85.80 Active 313158062 Problem Cigarette nicotine dependence without complication F17.210 Active 06322507 Problem Type 2 diabetes mellitus with diabetic peripheral angiopathy without gangrene E11.51 Active 990454534 Problem Vascular dementia without behavioral disturbance F01.50 Active [id number] Problem Unspecified atherosclerosis of [place] arteries of extremities, unspecified extremity I70.209 Active 919063162133863 Problem Arthritis M19.90 Active 1558290 Problem Chronic atrial fibrillation I48.2 Active 841181214 Problem Chronic obstructive pulmonary disease with acute lower respiratory infection J44.0 Active 949961787 Problem Other chronic pancreatitis K86.1 Active 801636119 Problem Stress incontinence of urine N39.3 Active 81853116 Problem Controlled type 2 diabetes mellitus without complication, without long -term current use of insulin E11.9 Active 676346503 Problem Unspecified psychosis F29 Active 91309936 Problem Xeroderma Q80.9 Active 28269816 Problem COPD (chronic obstructive pulmonary disease) J44.9 Active 60518455 Problem Dementia without behavioral disturbance, unspecified dementia type F03.90 Active 63840848 Problem Gastroparesis K31.84 Active 448500832 Problem Type 2 diabetes mellitus with diabetic neuropathy, without long-term current use of insulin E11.40 Active 38722999 Problem Osteoporosis M81.0 Active 37198903 Problem Atherosclerosis of [place] artery of both lower extremities with intermittent claudication I70.213 Active 862988157643121 Problem Hyperlipidemia E78.5 Active 28142578 Problem Diabetic polyneuropathy associated with type 2 diabetes mellitus E11.42 Active 16983750 Problem Essential tremor G25.0 Active 94069096 Problem Atherosclerotic heart disease of [place]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 I25.118 Active 2612651455755 Problem Generalized anxiety disorder F41.1 Active 661237989 Problem Gastroesophageal reflux disease, esophagitis presence not specified K21.9 Active 210790375 Problem Coronary artery disease involving [place] coronary artery of [place] 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 I25.118 Active 9729191879917 Problem Postconcussion syndrome F07.81 Active 08119626 Problem Chronic pain syndrome G89.4 Active 522554753 Problem Migraine without aura and without status migrainosus, not intractable G43.009 Active 775810678 Problem Paroxysmal atrial fibrillation I48.0 Active 689329308 Problem Migraine without aura and with status migrainosus, not intractable G43.001 Active 678792445 Problem Cervicalgia M54.2 Active 6294142871026 Problem Acute exacerbation of chronic obstructive pulmonary disease (COPD) J44.1 Active 546563729 Problem Major depressive disorder, recurrent episode, moderate F33.1 Active 652639197 Problem Crohn''s disease without complication, unspecified gastrointestinal tract location K50.90 Active 92073601 Problem Chronic fatigue R53.82 Active 44362566 Problem Bipolar affective disorder, currently depressed, moderate F31.32 Active 346688448 ALLERGIES Substance Reaction Event Type Date Status Penicillin V Potassium rash Drug Allergy Jul, Active Neosporin rash Drug Allergy Jul, Active Ibuprofen rash Drug Allergy Jul, Active Glipizide hives, nausea Drug Allergy Jul, Active ENCOUNTERS Encounter Location Date Diagnosis [facility] [id number], [place] [address] Nov, [facility] [place] [id number], [place] [address] Nov, [facility] [place] [id number], [place] [address] Oct, [facility] [place] [address] [place] [address] 23811- 1074 Oct, Bipolar affective disorder, currently depressed, moderate F31.32 ; Vascular dementia without behavioral disturbance F01.50 and Generalized anxiety disorder F41.1 [facility] [place] [id number] [place] [address] 62468- 9645 Oct, [facility] [place] [id number] [place] [address] 98554- 7208 Oct, [facility] [place] [id number] [place] [address] 08405- 0863 Oct, Edema of both legs R60.0 [facility] [place] [id number] [place] [address] 50485- 7202 Oct, [facility] [place] [id number] [place] [address] 14323- 9216 Sep, [facility] [place] [id number] [place] [address] 68930- 6394 Sep, [facility] [place] [id number] [place] [address] 52754- 2946 Sep, [facility] [place] [id number] [place] [address] 87062- 2110 Sep, Encounter for well woman exam with routine gynecological exam Z01.419 ; Screening for STDs (sexually transmitted diseases) Z11.3 ; Screening breast examination Z12.31 and Overweight (BMI 25.0-29.9) E66.3 [facility] [place] [address] [place] [address] 10819- 3158 Sep, [facility] [place] [id number] [place] [address] 37487- 7155 Sep, [facility] [place] [id number] [place] [address] 83229- 2684 Sep, [facility] [place] [id number] [place] [address] 49743- 4898 August, [facility] [place] [address], [place] [address] August, [facility] [place] [id number] [place] [address] 68966- 7014 August, Type 2 diabetes mellitus with diabetic neuropathy, without long-term current use of insulin E11.40 and Sprain of right ankle, unspecified ligament, initial encounter S93.401A [facility] [place] [id number] [place] [address] 21296- 6309 August, [facility] [place] [id number] [place] [address] 82944- 3284 August, [facility] [place] [id number] [place] [address] 70636- 3729 August, [facility] [place] [id number] [place] [address] 42438- 8375 August, Gastroesophageal reflux disease, esophagitis presence not specified K21.9 [facility] [place] [id number] [address] August, [facility] [place] [id number] [place] [address] 33111- 6150 August, [facility] [place] [address] [place] [address] 06929- 9547 August, [facility] [place] [address] [place] [address] 87616- 7180 August, Type 2 diabetes mellitus with diabetic neuropathy, without long-term current use of insulin E11.40 and Elevated liver enzymes R74.8 [facility] [place] [address] [address] Jul, [facility] [place] [address], [place] [address] 8[address] Jul, Cough R05 [facility] [place] [id number] [place] [address] 37756- 1175 Jul, [facility] [place] [address] 55923- 5417 Jul, [facility] [place] [address] 29815- 5091 Jul, Bipolar affective disorder, currently depressed, moderate F31.32 ; Vascular dementia without behavioral disturbance F01.50 and Generalized anxiety disorder F41.1 [address] 9[address]- 2793 Jul, [facility] [place] [address] 15125- 2575 Jul, Type 2 diabetes mellitus with diabetic neuropathy, without long-term current use of insulin E11.40 and Elevated liver enzymes R74.8 [address] 35304- 5264 Jul, [address] [address] 94279- 4356 Jul, [facility] [place] [address] 99433- 6163 Jul, [address] [address] 29520- 5411 Jul, Post-menopausal Z78.0 [address] [place] [address] 25228- 0153 Jul, Stress incontinence of urine N39.3 [facility] [place] [id number] [place] [address] 68272- 7916 Jul, [facility] [place] [address] 19059- 8043 Jul, [facility] [place] [id number] [place] [address] 48901- 7878 Jul, Stress incontinence of urine N39.3 and Cough R05 [address] [place] [address] 44136- 8670 Jul, [facility] [place] [address], [place] [address] 3588 Jul, [facility] [place] [id number] [place] [address] 92975- 8946 Jul, [facility] [place] [address] [place] [address] 44563- 8402 Jul, Gastroesophageal reflux disease, esophagitis presence not specified K21.9 [facility] [place] [address] [place] [address] 67516- 2452 Jun, Diabetic polyneuropathy associated with type 2 diabetes mellitus E11.42 [facility] [place] [id number] [place] [address] 97602- 5627 28 Jun, 2017 Diabetic polyneuropathy associated with type 2 diabetes mellitus E11.42 ; Coronary artery disease involving [place] coronary artery of [place] 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 I25.118 and Paroxysmal atrial fibrillation I48.0 [facility] [place] [address], [place] [address]- 3465 Jun, [facility] [place] [id number] [place] [address] 75297- 2277 Jun, [facility] [place] [address] [place] [address] 74350- 9384 Jun, Gastroenteritis K52.9 [facility] [place] [address] [place] [address] 40555- 9088 Jun, Gastroenteritis K52.9 [facility] [place] [address], [place] [address] 2543 Jun, [facility] [place] [address], [place] [address]- 1648 Jun, [facility] [place] [address], [place] [address]- 5527 Jun, Sprain of right ankle, unspecified ligament, initial encounter S93.401A ; Type 2 diabetes mellitus with diabetic neuropathy, without long-term current use of insulin E11.40 ; Atherosclerosis of [place] artery of both lower extremities with intermittent claudication I70.213 ; Atherosclerotic heart disease of [place]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 I25.118 ; Chronic atrial fibrillation I48.2 and Crohn''s disease without complication, unspecified gastrointestinal tract location K50.90 [facility] [address] [place] [address] 50831 -5533 17 Jun, 2017 Cough R05 and Chronic obstructive pulmonary disease with acute lower respiratory infection J44.0 [address] [facility] [id number] [place] [address] 00421- 1590 Jun, [address] [facility] [id number] [place] [address] 44444- 3550 Jun, Coughing R05 ; Unspecified atherosclerosis of [place] arteries of extremities, unspecified extremity I70.209 ; Type 2 diabetes mellitus with diabetic peripheral angiopathy without gangrene E11.51 ; Crohn''s disease without complication, unspecified gastrointestinal tract location K50.90 ; Other chronic pancreatitis K86.1 and Chronic atrial fibrillation I48.2 [facility] [id number] [place] [address] 76662 -2325 Jun, [address] [facility] [id number] [place] [address] 24587- 6123 Jun, Bipolar affective disorder, currently depressed, moderate F31.32 ; Vascular dementia without behavioral disturbance F01.50 and Generalized anxiety disorder F41.1 [address] [facility] [id number] [place] [address] 22304- 9378 May, Generalized anxiety disorder F41.1 [address] [place] [place] [address] 86342- 8887 May, [address] [facility] [id number] [place] [address] 36732- 7891 May, [address] [place] [id number] [place] [address] 11968- 4301 May, Coughing R05 [address] [place] [address] 89342- 3026 May, [address] [facility] [id number] [place] [address] 20120- 3832 May, Bipolar affective disorder, currently depressed, moderate F31.32 ; Vascular dementia without behavioral disturbance F01.50 and Generalized anxiety disorder F41.1 [address] 28624- 6088 Apr, Generalized anxiety disorder F41.1 [place] [facility] [id number] [place] [address] 74958- 6304 Apr, [address] [place] [id number] [place] [address] 04209- 8855 Apr, Vascular dementia without behavioral disturbance F01.50 ; Generalized anxiety disorder F41.1 and Bipolar affective disorder, currently depressed, moderate F31.32 [address] [facility] [id number] [place] [address] 69559- 2306 Apr, Generalized anxiety disorder F41.1 [facility] [id number] [place] [address] 80854 -7240 Apr, Cough R05 and Acute exacerbation of chronic obstructive pulmonary disease (COPD) J44.1 [address] [id number] [place] [address] 19751- 0711 Apr, [facility] [id number] [place] [address] 00144 -0717 Mar, Cough R05 and Cigarette nicotine dependence without complication F17.210 [place] [id number] [place] [address] 26377- 4011 Mar, [address] [place] [id number] [place] [address] 92048- 6409 Feb, Generalized anxiety disorder F41.1 ; Major depressive disorder, recurrent episode, moderate F33.1 ; Vascular dementia without behavioral disturbance F01.50 and Unspecified psychosis F29 [address] [id number] [place] [address] 79647- 1466 Feb, [address] [facility] [id number] [place] [address] 03578- 9808 Feb, [address] [id number] [place] [address] 96938- 4527 Feb, Generalized anxiety disorder F41.1 [address] [place] 19812- 2894 Feb, Generalized anxiety disorder F41.1 [address] [place] 75090- 1421 Feb, Dizziness R42 ; Chronic fatigue R53.82 ; Postconcussion syndrome F07.81 ; Fall, initial encounter W19.XXXA and Disorientation R41.0 [address] [place] [id number] [place] [address] 60341- 6822 Feb, Postconcussion syndrome F07.81 ; Injury of head, initial encounter S09.90XA ; Fall, initial encounter W19.XXXA ; Disorientation R41.0 and Acute cystitis with hematuria N30.01 [address] [place] [id number] [place] [address] 20395- 5342 Jan, Gastroesophageal reflux disease, esophagitis presence not specified K21.9 ; Post-menopausal Z78.0 and Migraine without aura and without status migrainosus, not intractable G43.009 [address] [id number] [place] [address] 94653- 8149 Jan, [address] [id number] [place] [address] 13704- 8992 Jan, Generalized anxiety disorder F41.1 ; Major depressive disorder, recurrent episode, moderate F33.1 ; Vascular dementia without behavioral disturbance F01.50 and Unspecified psychosis F29 [address] [place] [place] [address] 96689- 1971 Jan, Pneumonia of left lower lobe due to infectious organism J18.1 [facility] [id number] [place] [address] 57950- 8632 05 Jan, 2017 Migraine without aura and with status migrainosus, not intractable G43.001 [facility] [id number] [place] [address] 41120 -4950 Jan, Migraine without aura and without status migrainosus, not intractable G43.009 [facility] [place] [id number] [place] [address] 86820- 3110 Dec, Hematoma T14.8 [facility] [place] [id number] [place] [address] 94080- 7768 Dec, [facility] [id number] [place] [address] 04886 -9834 Nov, Fatigue, unspecified type R53.83 [address] [place] [address] 35533- 4094 Nov, Scabies B86 and Coronary artery disease involving [place] coronary artery of [place] 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 I25.118 [place] [id number] [place] [address] 16333- 8260 Nov, [place] [id number] [place] [address] 29286- 6087 Nov, [place] [place] [id number] [place] [address] 51314- 5134 Oct, [place] [id number] [place] [address] 28228- 8095 Oct, Generalized anxiety disorder F41.1 and Major depressive disorder, recurrent episode, moderate F33.1 [place] [id number] [place] [address] 48418- 8504 Oct, Cramp of both lower extremities R25.2 [place] [id number] [place] [address] 74784- 5737 Oct, Leg cramps R25.2 [facility] [id number] [place] [address] 15084- 1477 Oct, Chronic pain syndrome G89.4 [facility] [id number] [place] [address] 18572- 2883 17 Oct, 2016 [facility] [place] [id number] [place] [address] 03175- 4310 Oct, [facility] [place] [id number] [place] [address] 80709- 7718 Oct, Routine gynecological examination Z01.419 and Screening for breast cancer Z12.31 [place] [id number] [place] [address] 14387- 1587 28 Sep, 2016 Diarrhea R19.7 [facility] [id number] [place] [address] 01147- 6082 Sep, Back pain M54.9 [facility] [id number] [place] [address] 35045- 7313 Sep, [facility] [id number] [place] [address] 34041- 5119 Sep, [facility] [id number] [place] [address] 29914 -7619 August, Xeroderma Q80.9 [facility] [id number] [place] [address] 46758- 4658 August, Dementia without behavioral disturbance, unspecified dementia type F03.90 [facility] [id number] [place] [address] 58929- 2893 August, Chronic pain syndrome G89.4 [facility] [id number] [place] [address] 69958- 6167 August, [facility] [id number] [place] [address] 55335- 7107 August, Hyperlipidemia E78.5 ; Other fatigue R53.83 and Other specified hypotension I95.89 [facility] [id number] [place] [address] 35369 -7786 August, Dysuria R30.0 ; Other fatigue R53.83 and Other specified hypotension I95.89 [facility] [address] 42141- 3788 August, [place] [address] 16267- 4214 Jul, Pain in left knee M25.562 and Gastroenteritis K52.9 [place] [address] 71244- 9129 Jul, [place] [address] 50681- 9335 Jul, Diarrhea R19.7 [facility] [address] 60156 -9104 Jul, Spider bite, accidental or unintentional, initial encounter T63.301A [place] [address] 74513- 5559 Jul, Primary osteoarthritis of right knee M17.11 and Arthritis M19.90 [place] [address] 30512- 5703 Jul, Generalized anxiety disorder F41.1 and Major depressive disorder, recurrent episode, moderate F33.1 [place] [address] 79910- 7157 Jul, Type 2 diabetes mellitus with diabetic polyneuropathy E11.42 and Temporal headache R51 [place] [address] 26064- 8652 Jul, Back pain M54.9 [place] [address] 63450- 5961 Jul, [place] [address] 34761- 4516 Jul, [facility] [id number] [place] [address] 59641- 4652 Jun, Nausea R11.0 [facility] [address] [address] Jun, Acute suppurative otitis media of both ears without spontaneous rupture of tympanic membranes, recurrence not specified H66.003 and COPD exacerbation J44.1 [place] [address] [address] Jun, Generalized anxiety disorder F41.1 [place] [address] [address] Jun, [facility] [place] [address] [address] Jun, [facility] [place] [address] 94178 -9067 Jun, Shortness of breath R06.02 and COPD exacerbation J44.1 [place] [address] 88501- 7377 10 Jun, 2016 Eczema, unspecified type L30.9 [place] [address] [address] [place] [id number] [place] [address] 37808- 9812 Jun, [place] [address] [place] [id number] [place] [address] 30074- 7651 May, [place] [address] [place] [id number] [place] [address] 42902- 5429 May, Muscle cramping R25.2 [place] [address] 42100- 9373 May, [place] [address] 66342- 0410 Apr, Diarrhea R19.7 [place] [address] 27133- 7666 Apr, [place] [address] [place] [id number] [place] [address] 45702- 4370 Apr, Chronic pain syndrome G89.4 [place] [address] 45748- 7524 Apr, Cramp of both lower extremities R25.2 and Vascular dementia without behavioral disturbance F01.50 [place] [address] 78075- 9044 Apr, Type 2 diabetes mellitus with diabetic polyneuropathy E11.42 and Cigarette nicotine dependence without complication F17.210 [place] [address] 94874- 5875 Mar, Generalized anxiety disorder F41.1 [place] [address] 21921- 2364 Feb, Generalized anxiety disorder F41.1 and Major depressive disorder, recurrent episode, moderate F33.1 [place] [address] 23177- 9274 Feb, [facility] [address] 06306 -[address]38 Feb, Dysuria R30.0 and Acute cystitis with hematuria N30.01 [place] [address] 73219- 4643 Jan, [place] [address] 05041- 9848 Jan, [place] [address] 63829- 9298 Jan, [place] [address] 68834- 7210 Jan, [facility] [address] 42984 -2809 10 Jan, 2016 Wasp sting, accidental or unintentional, initial encounter T63.461A [place] [address] [place] [id number] [place] [address] 82963- 5833 06 Jan, 2016 Encounter for immunization Z23 [facility] [place] [address] [place] [id number] [place] [address] 11434- 2594 Jan, [facility] [place] [address] [place] [id number] [place] [address] 06263- 8469 Jan, [facility] [place] [address] 22262- 6558 28 Dec, 2015 Generalized anxiety disorder F41.1 and Major depressive disorder, recurrent episode, moderate F33.1 [place] [address] [place] [id number] [place] [address] 48824- 0532 21 Dec, 2015 Routine gynecological examination Z01.419 ; Postmenopausal Z78.0 ; Screening breast examination Z12.39 ; Osteopenia M85.80 and Breast cancer screening Z12.39 [place] [address] [place] [id number] [place] [address] 33909- 7731 20 Dec, 2015 [facility] [place] [address] [place] [id number] [place] [address] 12665- 2819 19 Dec, 2015 [facility] [place] [address] [place] [id number] [place] [address] 19125- 6323 16 Dec, 2015 [facility] [place] [address] [place] [id number] [place] [address] 34328- 5337 16 Dec, 2015 [facility] [place] [address] [place] [id number] [place] [address] 55411- 5108 14 Dec, 2015 [facility] [place] [address] [place] [address] 22865- 8123 06 Dec, 2015 [facility] [place] [address] [place] [id number] [place] [address] 88012- 5561 30 Nov, 2015 [facility] [id number] [place] [address] 16912 -2153 Nov, Cough R05 ; Other viral agents as the cause of diseases classified elsewhere B97.89 and Acute upper respiratory infection, unspecified J06.9 [facility] [place] [address] [facility] [id number], [place] [address]- 5[address] Nov, [facility] [place] [address] [facility] [id number], [place] [address]- 3807 Nov, [facility] [place] [address] [facility] [id number], [place] [address]- 4683 Nov, [facility] [place] [address] [facility] [id number], [place] [address]- 5773 Nov, [facility] [place] [address] [facility] [id number] [place] [address]- 1778 Nov, [facility] [place] [address] [facility] [id number], [place] [address]- 5162 Oct, [facility] [place] [address] [id number] [address]- 1287 Oct, [facility] [place] [address] [place] [id number], [place] [address]- 6792 Oct, [facility] [place] [address] [place] [id number], [place] [address]- 3741 Oct, Chronic pain syndrome G89.4 [facility] [place] [address] [place] [id number] [address]- 2231 Sep, Generalized anxiety disorder F41.1 and Major depressive disorder, recurrent episode, moderate F33.1 [facility] [place] [address], [place] [address]- 6132 Sep, [facility] [place] [address] [facility] [id number], [place] [address]- 9621 Sep, [facility] [place] [address], [place] [address]- 5165 14 Sep, 2015 Generalized anxiety disorder F41.1 [facility] [place] [address] [place] [id number], [place] [address]- 9339 13 Sep, 2015 Cramp of both lower extremities R25.2 and Cervicalgia M54.2 [facility] [place] [address] [place] [id number] [place] [address] 88459- 0728 Sep, Generalized anxiety disorder F41.1 [place] [address] [place] [id number] [place] [address] 88753- 4226 Sep, [facility] [address] [place] [id number] [place] [address] 83993 -9178 August, Rash R21 ; Itching L29.9 and Allergic response, subsequent encounter T78.40XD [facility] [place] [address] [place] [id number] [place] [address] 82638- 8160 August, Primary insomnia F51.01 [facility] [address] [place] [id number] [place] [address] 18161 -1866 August, Rash R21 ; Itching L29.9 and Allergic response, initial encounter T78.40XA [place] [address] [address] [place] [id number] [place] [address] 57445- 7310 August, [place] [address] [place] [id number] [place] [address] 78631- 9620 August, Cramp of both lower extremities R25.2 [place] [address] [place] [id number] [place] [address] 13674- 9064 August, Back pain M54.9 [place] [address] [place] [id number] [place] [address] 41613- 3124 August, [facility] [place] [address] [place] [id number] [place] [address] 37672- 6176 August, [facility] [address] [place] [id number] [place] [address] 37973 -0882 August, Cramp of both lower extremities R25.2 [facility] [place] [address] [place] [id number] [place] [address] 42247- 7438 August, [facility] [place] [address] [place] [id number] [place] [address] 84266- 1736 August, Syncope R55 ; Paroxysmal atrial fibrillation I48.0 ; Dementia without behavioral disturbance, unspecified dementia type F03.90 and Chronic pain syndrome G89.4 [facility] [place] [address] [place] [id number] [place] [address] 30709- 9596 August, Type 2 diabetes mellitus with diabetic polyneuropathy E11.42 and Syncope R55 [facility] [place] [address] [place] [id number] [place] [address] 00693- 9656 Jul, [facility] [place] [address] [place] [id number] [place] [address] 13853- 5609 Jul, [facility] [place] [address] [place] [id number] [place] [address] 87394- 9274 Jul, [facility] [place] [address] [place] [id number] [place] [address] 76592- 3125 Jul, [facility] [place] [address] [place] [id number] [place] [address] 58682- 0181 Jul, [facility] [place] [address] [place] [id number] [place] [address] 12611- 7861 Jul, UTI (urinary tract infection) N39.0 [facility] [place] [address] [place] [id number] [place] [address] 61112- 1119 Jul, [facility] [place] [id number] [place] [address] 61213- 1024 Jul, Major depressive disorder, recurrent episode, moderate F33.1 and Generalized anxiety disorder F41.1 [facility] [place] [id number], [place] [address]- 7064 Jul, Generalized anxiety disorder F41.1 [facility] [place] [address] [place] [id number] [place] [address] 61087- 3377 Jul, Diarrhea R19.7 [facility] [place] [id number] [place] [address] 17765- 1417 Jul, [facility] [place] [address] [place] [id number] [place] [address] 05035- 4695 Jun, [facility] [place] [id number], [place] [address]- 3285 Jun, Eczema L30.9 [facility] [place] [id number], [place] [address]- 7077 Jun, [facility] [place] [id number], [place] [address]- 1362 Jun, COPD (chronic obstructive pulmonary disease) J44.9 [facility] [place] [id number] [place] [address] 45570- 8481 Jun, [facility] [place] [address] [place] [id number] [place] [address] 93259- 8525 Jun, Major depressive disorder, recurrent episode, moderate F33.1 and Generalized anxiety disorder F41.1 [facility] [place] [id number] [place] [address] 19527- 5566 May, [facility] [place] [id number], [place] [address]- 0002 May, UTI (urinary tract infection) N39.0 [facility] [place] [id number], [place] [address]- 6717 May, [facility] [place] [id number], [place] [address]- 0396 May, [facility] [place] [id number], [place] [address]- 9356 May, [facility] [place] [id number], [place] [address]- 5345 May, [facility] [place] [id number], [place] [address]- 2856 Apr, Major depressive disorder, recurrent episode, moderate F33.1 and Generalized anxiety disorder F41.1 [facility] [place] [id number], [place] [address]- 7293 25 Michael, 2016 COPD (chronic obstructive pulmonary disease) J44.9 [facility] [place] [id number], [place] [address]- 2969 Apr, [facility] [place] [address] [place] [id number] [place] [address] 49626- 6380 Apr, Atrial flutter I48.92 [facility] [place] [address] [place] [id number] [place] [address] 09238- 6030 Apr, [facility] [place] [address] [place] [id number] [place] [address] 66261- 8617 Apr, [facility] [place] [address] [place] [id number] [place] [address] 85061- 0829 Mar, [facility] [place] [address] [place] [id number] [place] [address] 48359- 0604 Mar, [facility] [place] [address] [place] [id number] [place] [address] 71269- 9985 Mar, [facility] [place] [address] [place] [id number] [place] [address] 86979- 1692 Mar, Hyperlipidemia E78.5 ; Type 2 diabetes mellitus with diabetic polyneuropathy E11.42 ; Major depressive disorder, recurrent episode, moderate F33.1 and Chronic pain syndrome G89.4 [facility] [place] [id number], [place] [address]- 6288 16 Mar, 2015 [facility] [place] [id number], [place] [address]- 4628 14 Mar, 2015 [facility] [place] [id number], [place] [address]- 1178 Mar, [facility] [place] [address] [place] [id number] [place] [address] 96522- 2194 08 Mar, 2015 [facility] [place] [id number], [place] [address]- 2449 30 Feb, 2015 COPD (chronic obstructive pulmonary disease) J44.9 and Back pain M54.9 [facility] [place] [address] [place] [address]- 8862 Feb, [facility] [place] [id number], [place] [address]- 7524 Feb, [facility] [place] [id number], [place] [address]- 3687 Feb, [facility] [place] [address] [place] [id number] [place] [address] 87257- 9450 Feb, [facility] [place] [address] [place] [id number] [place] [address] 83811- 2010 Feb, [facility] [place] [address] [place] [id number] [place] [address] 40238- 9480 Feb, [facility] [place] [address] [place] [id number] [place] [address] 56182- 9115 Feb, [facility] [place] [address] [place] [id number] [place] [address] 75798- 0508 Feb, [facility] [place] [id number] [place] [address] 98017- 2712 Feb, Diabetes E11.9 ; Back pain M54.9 and COPD (chronic obstructive pulmonary disease) J44.9 [facility] [place] [id number], [place] [address]- 1323 Jan, [facility] [place] [id number] [place] [address] 75010- 1682 Jan, Major depression, recurrent F33.9 and Generalized anxiety disorder F41.1 [facility] [place] [address], [place] [address]- 8660 Jan, Chronic pain G89.29 [facility] [place] [address] [place] [id number] [place] [address] 88335- 7211 Jan, [facility] [place] [address], [place] [address]- 0982 Jan, [facility] [place] [address] [place] [id number] [place] [address] 55817- 1853 05 Jan, 2015 [facility] [place] [id number] [place] [address] 00645- 8975 Jan, [facility] [place] [address] [place] [id number] [place] [address] 81181- 7989 Jan, Nicotine dependence F17.200 [facility] [place] [address] [place] [id number] [place] [address] 75670- 0667 Jan, Nicotine dependence F17.200 and Back pain M54.9 [facility] [place] [address] [place] [id number] [place] [address] 40848- 3475 Jan, [facility] [place] [address] [place] [id number] [place] [address] 87213- 8411 28 Dec, 2014 [facility] [place] [address] [place] [id number] [place] [address] 86936- 0357 25 Dec, 2014 Anxiety, generalized 300.02 and Major depression, recurrent 296.30 [facility] [place] [address] [id number] [place] [address] 15518- 4400 24 Dec, 2014 [facility] [place] [id number] [place] [address] 69238- 8398 21 Dec, 2014 [facility] [place] [address] [id number] [place] [address] 07641- 3764 17 Dec, 2014 [facility] [place] [id number] [place] [address] 40158- 5950 15 Dec, 2014 [facility] [place] [address] [place] [address] 23553- 5618 14 Dec, 2014 [facility] [place] [address] [id number] [place] [address] 48733- 5118 11 Dec, 2014 [facility] [place] [id number] [place] [address] 79852- 6282 10 Dec, 2014 [facility] [place] [id number] [place] [address] 99762- 5552 08 Sep, 2014 Skin tear 879.8 [facility] [place] [address], [place] [address]- 6034 08 Dec, 2014 Routine gynecological examination V72.31 ; Breast cancer screening V76.10 and Family history of breast cancer in first degree relative V16.3 [facility] [place] [id number] [place] [address] 10728- 1749 03 Dec, 2014 [facility] [place] [address] [id number] [place] [address] 60003- 7729 Dec, [facility] [place] [address] [id number] [place] [address] 34664- 0370 Nov, [facility] [place] [id number] [place] [address] 73477- 0016 Nov, [facility] [place] [id number] [place] [address] 22284- 8673 Nov, Poor balance 781.99 and Vascular dementia, uncomplicated 290.40 [facility] [place] [address] [id number] [place] [address] 65543- 9695 Nov, [facility] [place] [id number] [place] [address] 61129- 3362 Nov, Major depression, recurrent 296.30 and Anxiety, generalized 300.02 [facility] [place] [id number] [place] [address] 37083- 4852 Nov, [facility] [place] [id number] [place] [address] 29246- 3376 Nov, [facility] [place] [id number] [place] [address] 17594- 3168 Nov, [facility] [place] [id number] [place] [address] 32204- 2715 Nov, [facility] [place] [id number] [place] [address] 16212- 9466 Nov, Vascular dementia, uncomplicated 290.40 and Lumbago 724.2 [facility] [place] [address] [address] [address] Nov, [facility] [place] [id number] [address] Nov, [facility] [place] [id number] [address] Nov, [facility] [place] [id number] [place] [address] 53052- 8500 Oct, [facility] [place] [id number] [place] [address] 85255- 7438 Oct, [facility] [place] [id number] [place] [address] 49322- 7414 Oct, [facility] [place] [id number] [place] [address] 17492- 8927 Oct, COPD (chronic obstructive pulmonary disease) 496 and Hyperlipidemia 272.4 [facility] [place] [id number] [place] [address] 99911- 3266 Oct, Major depression, recurrent 296.30 and Anxiety, generalized 300.02 [facility] [place] [id number] [address] Oct, [facility] [place] [address] [address] Oct, [facility] [place] [id number] [address] Oct, [facility] [place] [id number] [address] Sep, Lumbago 724.2 and Anxiety state, unspecified 300.00 [facility] [place] [id number] [address] Sep, [facility] [place] [id number] [address] Sep, [facility] [place] [id number] [address] August, [facility] [address] [facility] [id number] [address] [address] August, Major depression, recurrent 296.30 ; Anxiety, generalized 300.02 and No condition on [place] II V71.09 [facility] [address] [facility] [id number] August, [facility] [address] [facility] [id number], [place] [address] August, [facility] [address] [facility] [id number] [place] Jul, [facility] [id number] [address] 1344 Jul, [facility] [id number] [place] [address] Jul, [facility] [id number] [address] Jun, [facility] [id number] [place] [address] Jun, [facility] [address] [id number], [place] [address] Jun, [facility] [address] [id number], [place] [address] Jun, [facility] [address] [id number], [place] [address] 477[address] Jun, [facility] [place] [facility] [address] [facility] [id number] [place] [address] 7772 Jun, [facility] [place] [facility] [address] [facility] [id number] [address] Jun, [facility] [place] [facility] [address] [id number], [place] [address] 45[address] 17 Jun, 2014 [facility] [address] [id number] [place] [address] 13 Jun, 2014 [facility] [place] [facility] [address] [id number] [place] [address] 9647 13 Jun, 2014 [facility] [place] [facility] [address] [id number] [place] [address]- 7231 10 Jun, 2014 [facility] [place] [facility] [address] [facility] [id number] [place] [address]- 2554 10 Jun, 2014 [facility] [place] [facility] [address] [id number] [place] [address]- 9443 07 Jun, 2014 [facility] [place] [facility] [address] [id number] [place] [address]- 3398 07 Jun, 2014 [facility] [place] [facility] [address] [facility] [id number] [place] [address]- 6019 Jun, 2014 [facility] [place] [facility] [address] [id number] [place] [address] 8437 Jun, 2014 [facility] [place] [facility] [address] [facility] [id number] [place] [address]- 4280 May, 2014 [facility] [place] [facility] [address] [facility] [id number] [place] [address]- 2634 May, 2014 [facility] [place] [facility] [address] [id number] [place] [address]- 2093 May, 2014 [facility] [place] [facility] [id number] [place] [address]- 7377 May, 2014 [facility] [place] [facility] [address] [facility] [id number], [place] [address] 9943 May, 2014 [facility] [place] [facility] [address] [facility] [id number] [place] [address]- 0985 May, 2014 [facility] [place] [facility] [address] [facility] [id number] [place] [address]- 2836 19 May, 2014 [facility] [place] [facility] [id number] [address]358 May, [facility] [place] [facility] [address] [id number] [place] [address]- 6261 May, [facility] [place] [facility] [address] [id number] [place] [address]- 4024 May, 2014 [facility] [place] [facility] [address] [id number] [place] [address]- 4014 May, 2014 [facility] [place] [facility] [address] [id number] [place] [address]- 7044 May, 2014 [facility] [place] [facility] [address] [id number] [place] [address]- 1840 May, [facility] [place] [facility] [address] [id number] [place] [address]- 3823 May, [facility] [place] [facility] [address] [id number] [place] [address]- 0319 Apr, [facility] [place] [facility] [address] [id number] [place] [address]- 8593 Apr, [facility] [place] [facility] [address] [id number] [place] [address]- 4541 Apr, [facility] [place] [facility] [address] [id number] [place] [address]- 3362 Apr, [facility] [place] [facility] [address] [id number] [place] [address]- 4642 Apr, [facility] [place] [facility] [address] [id number] [place] [address]- 6307 Apr, [facility] [place] [facility] [address] [id number] [place] [address]- 0882 Apr, [facility] [place] [facility] [address] [facility] [id number] [place] [address]- 8605 Apr, [facility] [place] [facility] [address] [facility] [id number] [place] [address]- 8255 Apr, [facility] [place] [facility] [address] [id number] [place] [address]- 1342 Apr, [facility] [address] [id number] [place] [address]- 6166 Apr, [facility] [address] [id number] [place] [address]- 4636 Apr, [facility] [address] [id number] [place] [address]- 6148 Mar, [facility] [address] [id number] [place] [address]- 2248 31 Mar, 2014 [facility] [address] [id number] [place] [address]- 5907 30 Mar, 2014 [facility] [address] [id number] [place] [address]- 3509 30 Mar, 2014 [facility] [address] [id number] [place] [address]- 2599 Mar, [facility] [address] [id number] [place] [address]- 7580 29 Mar, 2014 [facility] [address] [id number] [place] [address]- 8595 Mar, [facility] [address] [id number] [place] [address]- 3426 19 Mar, 2014 [facility] [place] [facility] [address] [id number] [place] [address]- 4920 15 Mar, 2014 [facility] [place] [facility] [address] [id number] [place] [address]- 9435 15 Mar, 2014 [facility] [place] [facility] [address] [id number] [place] [address]- 9099 15 Mar, 2014 [facility] [place] [facility] [address] [id number] [place] [address]- 9167 15 Mar, 2014 [facility] [place] [facility] [address] [id number] [place] [address]- 7609 Mar, [facility] [place] [facility] [address] [id number] [place] [address]- 5617 Mar, [facility] [place] [facility] [address] [id number] [place] [address]- 6516 Mar, [facility] [place] [facility] [address] [id number] [place] 6[place] Mar, [facility] [place] [facility] [address] [id number] [place] [address]- 0086 Mar, [facility] [place] [facility] [address] [id number] [place] [address]- 9493 Mar, [facility] [place] [facility] [address] [id number] [place] [address]- 3563 Mar, [facility] [place] [facility] [address] [id number] [place] [address]- 9163 Mar, [facility] [place] [facility] [address] [id number] [place] [address]- 4505 Feb, [facility] [place] [facility] [address] [id number] [place] [address]- 7213 Feb, [facility] [place] [facility] [address] [id number] [place] [address]- 2483 Feb, [facility] [place] [facility] [address] [id number] [place] [address]- 1899 Feb, [facility] [place] [facility] [address] [id number], [place] [address]- 7115 Feb, [facility] [place] [facility] [address] [id number] [place] [address]- 1969 Feb, [facility] [place] [facility] [address] [id number] [place] [address]- 6519 Feb, [facility] [place] [facility] [address] [id number], [place] [address]- 5601 Feb, [facility] [place] [facility] [address] [id number], [place] [address]- 1009 Feb, [facility] [place] [facility] [address] [id number] [place] [address]- 5185 Feb, [facility] [place] [facility] [address] [id number] [place] [address]- 2400 Feb, [facility] [place] [facility] [address] [id number] [place] [address]- 5607 Feb, [facility] [place] [facility] [address] [id number] [place] [address]- 9855 Feb, [facility] [place] [facility] [address] [id number] [place] [address]- 8731 Feb, [facility] [place] [facility] [address] [id number] [place] [address]- 3137 Feb, [facility] [place] [facility] [address] [facility] [id number] [place] [address]- 4459 Feb, [facility] [place] [facility] [address] [id number] [place] [address]- 5204 Feb, [facility] [place] [facility] [address] [facility] [id number] [place] [address]- 8353 Jan, [facility] [place] [facility] [address] [facility] [id number] [place] [address]- 8504 Jan, [facility] [place] [facility] [address] [id number], [place] [address]- 3191 Jan, [facility] [place] [facility] [address] [id number], [place] [address]- 1198 Jan, [facility] [place] [facility] [address] [id number] [place] [address]- 0344 Jan, [facility] [place] [facility] [address] [id number] [place] [address]- 0923 Jan, [facility] [place] [facility] [address] [facility] [id number], [place] [address]- 2490 16 Jan, 2014 [facility] [place] [facility] [address] [id number] [place] [address]- 2238 Jan, [facility] [place] [facility] [address] [id number] [place] [address]- 2650 Jan, [facility] [place] [facility] [address] [id number] [place] [address]- 7446 Jan, [facility] [place] [facility] [address] [id number] [place] [address]- 0311 Jan, [facility] [place] [facility] [address] [id number] [place] [address]- 8197 Dec, [facility] [place] [facility] [address] [id number] [place] [address]- 0525 Dec, [facility] [place] [facility] [address] [id number] [place] [address]- 0975 Nov, [facility] [place] [facility] [address] [id number] [place] [address]- 1739 Nov, [facility] [place] [facility] [address] [id number] [place] [address]- 4216 Nov, [facility] [place] [facility] [address] [id number] [place] [address]- 1805 Nov, [facility] [place] [facility] [address] [id number] [place] [address]- 5521 Nov, [facility] [place] [facility] [address] [id number] [place] [address]- 8077 Nov, [facility] [place] [facility] [address] [id number] [place] [address]- 5842 Nov, [facility] [place] [facility] [address] [id number] [place] [address]- 2376 Oct, [facility] [place] [facility] [address] [id number] [place] [address]- 2546 Oct, [facility] [place] [facility] [address] [id number] [place] [address]- 1211 07 Oct, 2013 [facility] [place] [facility] [address] [id number] [place] [address]- 1822 07 Oct, 2013 [facility] [place] [facility] [address] [id number] [place] [address]- 7995 30 Sep, 2013 [facility] [place] [facility] [address] [id number] [place] [address]- 2860 30 Sep, 2013 [facility] [place] [facility] [address] [id number] [place] [address]- 2588 Sep, [facility] [place] [facility] [address] [id number] [place] [address]- 7979 Sep, [facility] [place] [facility] [address] [id number] [place] [address]- 8746 Sep, [facility] [place] [facility] [address] [id number] [place] [address]- 1429 Sep, [facility] [place] [facility] [address] [id number] [place] [address]- 3391 Sep, [facility] [place] [facility] [address] [id number] [place] [address]- 1160 Sep, [facility] [place] [facility] [address] [id number] [place] [address]- 2469 Sep, [facility] [place] [facility] [address] [id number] [place] [address]- 5023 Sep, [facility] [place] [facility] [address] [id number], [place] [address]- 3128 05 Sep, 2013 [facility] [place] [facility] [address] [id number] [place] [address]- 9747 Sep, [facility] [place] [facility] [address] [id number] [place] [address]- 3549 05 Sep, 2013 [facility] [place] [facility] [address] [id number] [place] [address]- 0030 Sep, [facility] [place] [facility] [address] [id number] [place] [address]- 2403 August, [facility] [address] [id number] [place] [address]- 2889 August, [facility] [address] [id number] [place] [address]- 2359 August, [facility] [address] [id number] [place] [address]- 5136 August, [facility] [address] [id number] [place] [address]- 0124 August, [facility] [address] [id number] [place] [address]- 4152 August, [facility] [address] [id number] [place] [address]- 5098 August, [facility] [address] [id number] [place] [address]- 7745 August, [facility] [address] [id number] [place] [address]- 4300 August, [facility] [address] [id number] [place] [address]- 4506 August, [facility] [address] [id number] [place] [address]- 6676 August, [facility] [address] [id number] [place] [address]- 6136 August, [facility] [place] [facility] [address] [id number] [place] [address]- 3543 August, [facility] [place] [facility] [address] [id number] [place] [address] August, [facility] [place] [facility] [address] [id number] [place] [address]369 August, [facility] [place] [facility] [address] [id number] [place] [address]- 8996 August, [facility] [place] [facility] [address] [id number] [place] [address]- 7991 August, [facility] [place] [facility] [address] [id number] [place] [address]- 5254 August, [facility] [place] [facility] [address] [id number] [place] [address]- 7168 August, [facility] [place] [facility] [address] [id number] [place] [address]- 2701 Jul, [facility] [place] [facility] [address] [id number] [place] [address]- 0601 Jul, [facility] [place] [facility] [address] [id number] [place] [address]- 5452 Jul, [facility] [place] [facility] [address] [id number] [place] [address]- 0576 Jul, [facility] [place] [facility] [address] [id number] [place] [address]- 7149 Jun, [facility] [place] [facility] [address] [id number] [place] [address]- 2025 Jun, [facility] [place] [facility] [address] [id number] [place] [address]- 7046 Jun, [facility] [place] [facility] [address] [id number] [place] [address]- 6714 Jun, [facility] [place] [facility] [address] [id number] [place] [address]- 1300 Jun, [facility] [place] [facility] [address] [id number] [place] [address]- 8008 17 Jun, 2013 [facility] [place] [facility] [address] [id number] [place] [address]- 0273 Jun, [facility] [place] [facility] [address] [id number] [place] [address]- 1132 14 Jun, 2013 [facility] [place] [facility] [address] [id number] [place] [address]- 9620 Jun, [facility] [place] [facility] [address] [facility] [id number] [place] [address]- 3967 Jun, [facility] [place] [facility] [address] [facility] [id number] [place] [address]- 7306 May, [facility] [place] [facility] [address] [facility] [id number] [place] [address]- 7956 May, [facility] [place] [facility] [address] [facility] [id number] [place] [address]- 2299 May, [facility] [place] [facility] [address] [facility] [id number] [place] [address]- 7896 May, [facility] [place] [facility] [address] [facility] [id number] [place] [address]- 2076 May, [facility] [place] [facility] [address] [facility] [id number] [place] [address]- 8238 May, [facility] [place] [facility] [address] [facility] [id number] [place] [address]- 7867 20 May, 2013 [facility] [place] [facility] [address] [facility] [id number] [place] [address]- 2931 May, [facility] [place] [facility] [address] [facility] [id number] [place] [address]- 5755 May, [facility] [place] [facility] [address] [facility] [id number] [place] [address]- 9853 18 May, 2013 [facility] [place] [facility] [address] [facility] [id number] [place] [address]- 2956 18 May, 2013 [facility] [place] [facility] [address] [facility] [id number] [place] [address]- 5596 17 May, 2013 [facility] [place] [facility] [address] [facility] [id number] [place] [address]- 6016 May, [facility] [place] [facility] [address] [facility] [id number] [place] [address]- 7764 May, [facility] [place] [facility] [address] [id number] [place] [address]- 0449 10 May, 2013 [facility] [place] [facility] [address] [id number] [place] [address]- 9214 07 May, 2013 [facility] [place] [facility] [address] [id number] [place] [address]- 3944 May, [facility] [place] [facility] [address] [id number] [place] [address]- 1034 Apr, [facility] [place] [facility] [address] [id number] [place] [address]- 2485 Apr, [facility] [place] [facility] [address] [id number] [place] [address]- 3149 Apr, [facility] [place] [facility] [address] [id number] [place] [address]- 0705 Apr, [facility] [place] [facility] [address] [id number] [place] [address]- 9094 Apr, [facility] [place] [facility] [address] [id number] [place] [address]- 3793 Apr, [facility] [place] [facility] [address] [id number] [place] [address]- 9680 Apr, [facility] [place] [facility] [address] [id number] [place] [address]- 1952 Mar, [facility] [place] [facility] [address] [id number], [place] [address]- 9562 Mar, [facility] [place] [facility] [address] [id number] [place] [address]- 4642 Mar, [facility] [place] [facility] [address] [id number] [place] [address]- 4599 Mar, [facility] [place] [facility] [address] [id number] [place] [address]- 7141 Mar, [facility] [place] [facility] [address] [id number] [place] 3591 09 Mar, 2013 [facility] [address] [id number] [place] [address]- 5362 Mar, [facility] [place] [facility] [address] [id number] [place] 1118 Mar, [facility] [address] [id number] [place] [address]- 3092 Mar, [facility] [place] [facility] [address] [id number] [place] [address]- 1513 Mar, [facility] [address] [id number] [place] [address] Mar, [facility] [address] [id number] [place] [address] Feb, [facility] [address] [id number] [place] [address] Feb, [facility] [address] [id number] [place] [address] Feb, [facility] [place] [facility] [address] [id number] [place] [address] 20 Feb, 2013 [facility] [address] [facility] [id number] [place] [address] Feb, [facility] [place] [facility] [address] [id number] [place] [address] 19 Feb, 2013 [facility] [place] [facility] [address] [id number], [place] [address] 15 Feb, 2013 [facility] [place] [facility] [address] [id number] [place] [address]69 14 Feb, 2013 [facility] [place] [facility] [address] [id number] [place] [address] 14 Feb, 2013 [facility] [place] [facility] [address] [id number], [place] [address] Feb, [facility] [place] [facility] [address] [id number] [place] [address] Feb, [facility] [place] [facility] [address] [id number] [place] [address] Feb, [facility] [place] [facility] [address] [id number] [place] [address]- [address]26 Feb, [facility] [place] [facility] [address] [id number] [place] [address]- 99[address] Feb, [facility] [place] [facility] [address] [id number] [place] [address] Feb, [facility] [place] [facility] [address] [id number] [place] [address] Feb, [facility] [place] [facility] [address] [id number] [place] [address] Jan, [facility] [place] [facility] [address] [id number] [place] [address]- [address] Jan, [facility] [place] [facility] [address] [id number] [place] [address] 39[address] Jan, [facility] [place] [facility] [address] [id number] [place] [address]- 7689 Jan, [facility] [place] [facility] [address] [id number] [place] [address] 9777 Jan, [facility] [place] [facility] [address] [id number], [place] [address]- [address] Jan, [facility] [place] [facility] [address] [id number] [place] [address]- 8[address] Jan, [facility] [place] [facility] [address] [id number] [place] [address] Jan, [facility] [place] [facility] [address] [id number] [place] [address]763 10 Jan, 2013 [facility] [place] [facility] [address] [id number] [place] [address]- 1181 27 Dec, 2012 [facility] [place] [facility] [address] [id number] [place] [address]- [address]73 20 Dec, 2012 [facility] [place] [facility] [address] [id number] [place] [address]- 9026 19 Dec, 2012 [facility] [place] [facility] [address] [id number] [place] [address] 2545 10 Dec, 2012 [facility] [place] [facility] [address] [id number] [place] [address] 2542 04 Dec, 2012 [facility] [place] [facility] [address] [id number] [place] [address]- 5736 03 Dec, 2012 [facility] [place] [facility] [address] [id number] [place] [address] Nov, [facility] [place] [facility] [address] [id number] [place] [address]31 Nov, [facility] [place] [facility] [address] [id number] [place] [address]- [address] Nov, [facility] [place] [facility] [address] [id number] [place] [address]879 Nov, [facility] [place] [facility] [address] [id number] [place] [address]- [address] Nov, [facility] [place] [facility] [address] [id number] [place] [address] 5671 Nov, [facility] [place] [facility] [address] [id number] [place] [address]- 1727 Nov, [facility] [place] [facility] [address] [id number] [place] [address] 39[address] Nov, [facility] [place] [facility] [address] [id number] [place] [address]- 47[address] Nov, [facility] [place] [facility] [address] [id number] [place] [address]- 7924 Nov, [facility] [place] [facility] [address] [id number] [place] [address]- [address] 17 Oct, 2012 [facility] [address] [id number] [place] [address] Oct, 2012 [facility] [place] [facility] [address] [id number] [place] [address]70 Oct, 2012 [facility] [address] [id number] [place] [address]- 18[address] Oct, 2012 [facility] [place] [facility] [address] [id number] [place] [address]- 1442 Oct, 2012 [facility] [address] [id number] [place] [address]- 8079 Oct, [facility] [place] [facility] [address] [id number] [place] [address]- [address] Oct, [facility] [place] [facility] [address] [id number] [place] [address]- 2293 Oct, [facility] [address] [id number] [place] [address]- 5797 Sep, [facility] [place] [facility] [address] [id number] [place] [address]- 4033 Sep, [facility] [address] [id number] [place] [address]- 3824 Sep, [facility] [address] [id number] [place] [address]- 5325 Sep, [facility] [place] [facility] [address] [id number] [place] [address]- 6031 Sep, [facility] [place] [facility] [address] [id number] [place] [address]- 7443 Sep, [facility] [place] [facility] [address] [id number] [place] [address]- 2226 Sep, [facility] [place] [facility] [address] [id number] [place] [address]- 8760 Sep, [facility] [address] [id number] [place] [address]- [address] August, [facility] [address] [id number] [place] [address] August, [facility] [address] [id number] [place] [address]- 33[address] August, [facility] [address] [id number] [place] [address]- 2006 August, [facility] [facility] [address] [id number] [place] [address] August, [facility] [address] [id number] [place] [address] Jul, [facility] [address] [id number] [place] [address]40 Jul, [facility] [address] [id number] [place] [address] 65[address] Jul, [facility] [address] [id number] [place] [address] 5205 Jul, [facility] [address] [id number], [place] [address] Jul, [facility] [address] [id number], [place] [address] 18 Jun, 2012 [facility] [place] [facility] [address] [id number], [place] [address] 18 Jun, 2012 [facility] [place] [facility] [address] [id number] [place] [address] 7119 15 Jun, 2012 [facility] [place] [facility] [address] [id number] [place] [address] 7713 14 Jun, 2012 [facility] [place] [facility] [address] [id number] [address] 12 Jun, 2012 [facility] [place] [facility] [address] [id number], [place] [address] 97[address] 08 Jun, 2012 [facility] [address] [id number] [place] [address] 2790 Jun, [facility] [address] [id number] [place] [address] Jun, [facility] [address] [id number] [place] [address] 9866 Jun, [facility] [address] [id number] [place] [address]- 7766 May, [facility] [address] [id number] [place] [address]- 7541 May, [facility] [address] [id number] [place] [address] 2420 May, [facility] [address] [id number] [place] [address]- 3184 May, [facility] [address] [id number] [place] [address]- 9695 Apr, [facility] [address] [id number] [place] [address]- 4409 Apr, [facility] [address] [id number] [place] [address]- 6343 Apr, [facility] [address] [id number] [place] [address]- 1728 Apr, [facility] [address] [id number] [place] [address]- 3217 Apr, [facility] [address] [id number] [place] [address]- 8624 Apr, [facility] [address] [id number] [place] [address]- 2449 Apr, [facility] [address] [id number] [place] [address] 23[address] Mar, [facility] [id number] Mar, [facility] [address] [id number] [place] [address] 8446 Mar, [facility] [address] [id number] [place] [address]- 3066 Mar, [facility] [address] [id number] [place] [address]- 5056 Mar, [facility] [address] [id number] [place] [address]- 8242 Mar, [facility] [address] [id number] [place] [address]- 1989 Mar, [facility] [address] [id number] [place] [address]- 9544 Mar, [facility] [address] [id number] [place] [address]- 2827 Mar, [facility] [address] [id number] [place] [address]- 6160 Mar, [facility] [address] [id number] [place] [address]- 8951 Mar, [facility] [address] [id number] [place] [address]- 0061 Mar, [facility] [address] [id number] [place] [address]- 8416 Mar, [facility] [address] [id number] [place] [address]- 5246 Mar, [facility] [address] [id number] [place] [address]- 5886 Mar, [facility] [address] [id number] [place] [address]- 6756 Mar, [facility] [address] [id number] [place] [address]- 2861 Mar, [facility] [place] [facility] [address] [id number] [place] [address] 3000 Feb, [facility] [place] [facility] [address] [id number] [place] [address]- 5364 Feb, [facility] [place] [facility] [address] [id number] [place] [address]- 5214 Feb, [facility] [place] [facility] [address] [id number] [place] [address]- 1718 Feb, [facility] [place] [facility] [address] [id number] [place] [address]- 5730 Feb, [facility] [place] [facility] [address] [id number] [place] [address]- 9940 Feb, [facility] [place] [facility] [address] [id number] [place] [address]- 2187 Feb, [facility] [place] [facility] [address] [id number] [place] [address]- 8528 Feb, [facility] [place] [facility] [address] [id number] [place] [address]- 1363 Feb, [facility] [place] [facility] [address] [id number] [place] [address]- 2080 Feb, [facility] [place] [facility] [address] [id number], [place] [address]- 8812 Feb, [facility] [place] [facility] [address] [id number], [place] [address]- 4638 Feb, [facility] [place] [facility] [address] [id number] [place] [address]- 4773 Feb, [facility] [place] [facility] [address] [id number] [place] [address]- 3652 Feb, [facility] [place] [facility] [address] [id number] [place] [address]- 0839 Feb, [facility] [place] [facility] [address] [id number] [place] [address]- 5986 Feb, [facility] [place] [facility] [address] [id number] [place] [address]- 8095 Jan, 2011 [facility] [place] [facility] [address] [id number] [place] [address]- 7314 Jan, [facility] [place] [facility] [address] [id number] [place] [address]- 7804 Jan, [facility] [place] [facility] [address] [id number] [place] [address]- 8558 Jan, [facility] [place] [facility] [address] [id number] [place] [address]- 8390 Jan, [facility] [place] [facility] [address] [id number] [place] [address]- 6311 Jan, [facility] [place] [facility] [address] [id number] [place] [address]- 1534 Jan, [facility] [place] [facility] [address] [id number], [place] [address]- 7325 Jan, [facility] [place] [facility] [address] [id number] [place] [address]- 8057 Jan, [facility] [place] [facility] [address] [id number], [place] [address]- 7679 Jan, [facility] [place] [facility] [address] [id number], [place] [address]- 8505 Jan, [facility] [place] [facility] [address] [id number], [place] [address] 1942 Jan, [facility] [place] [facility] [address] [id number], [place] [address]- 1341 Jan, [facility] [place] [facility] [address] [facility] [id number], [place] [address] 1989 Jan, [facility] [place] [facility] [address] [facility] [id number], [place] [address]- 9215 Jan, [facility] [place] [facility] [address] [id number] [place] [address]- 7784 05 Jan, 2012 [facility] [place] [facility] [address] [id number] [place] [address]- 2266 04 Jan, 2012 [facility] [place] [facility] [address] [id number] [place] [address] 2546 21 Dec, 2011 [facility] [place] [facility] [address] [id number] [place] [address] 2546 20 Dec, 2011 [facility] [place] [facility] [address] [id number] [place] [address] 2546 18 Dec, 2011 [facility] [place] [facility] [address] [id number] [place] [address] 2546 18 Dec, 2011 [facility] [place] [facility] [address] [id number] [place] [address]- 4626 10 Dec, 2011 [facility] [place] [facility] [address] [id number] [place] [address]- 8351 10 Dec, 2011 [facility] [place] [facility] [address] [id number] [place] [address] 2541 10 Dec, 2011 [facility] [place] [facility] [address] [id number] [place] [address] 2543 07 Dec, 2011 [facility] [place] [facility] [address] [id number] [place] [address] 2542 30 Nov, 2011 [facility] [place] [facility] [address] [id number] [place] [address] 2546 25 Nov, 2011 [facility] [place] [facility] [address] [id number] [place] [address] 2546 24 Nov, 2011 [facility] [place] [facility] [address] [id number] [place] [address] 2546 Nov, [facility] [place] [facility] [address] [id number] [place] [address] 2546 Nov, [facility] [place] [facility] [address] [id number] [place] [address]- 0711 Nov, [facility] [place] [facility] [address] [id number] [place] [address]- 5465 Oct, [facility] [place] [facility] [address] [id number] [place] [address]- 0216 Oct, [facility] [place] [facility] [address] [id number] [place] [address]- 3356 Oct, [facility] [place] [facility] [address] [id number] [place] [address]- 2427 Oct, [facility] [place] [facility] [address] [id number] [place] [address]- 4655 Oct, [facility] [place] [facility] [address] [id number] [place] [address]- 6802 Oct, [facility] [place] [facility] [address] [id number] [place] [address]- 4776 Oct, [facility] [place] [facility] [address] [id number] [place] [address]- 0828 Sep, [facility] [place] [facility] [address] [id number] [place] [address]- 2381 Sep, [facility] [place] [facility] [address] [id number] [place] [address]- 3145 Sep, [facility] [place] [facility] [address] [id number] [place] [address]- 9492 Sep, [facility] [place] [facility] [address] [id number], [place] [address]- 5363 19 Sep, 2011 [facility] [place] [facility] [address] [id number] [place] [address]- 3625 15 Sep, 2011 [facility] [place] [facility] [address] [id number] [place] [address]- 8443 14 Sep, 2011 [facility] [place] [facility] [address] [id number] [place] [address]- 5896 11 Sep, 2011 [facility] [place] [facility] [address] [id number] [place] [address]- 9856 Sep, [facility] [address] [id number] [place] [address]- 1200 Sep, [facility] [place] [facility] [address] [id number] [place] [address]- 5266 August, [facility] [address] [id number] [place] [address]- 5650 August, [facility] [address] [id number] [place] [address]- 7203 August, [facility] [address] [id number] [place] [address]- 2223 August, [facility] [address] [id number] [place] [address]- 8113 August, [facility] [address] [id number] [place] [address]- 4725 Jul, [facility] [address] [id number] [place] [address]- 6864 Jul, [facility] [address] [id number] [place] [address]- 4029 Jul, [facility] [address] [id number] [place] [address]- 3516 Jul, [facility] [address] [id number] [place] [address]- 1792 Jul, [facility] [address] [id number] [place] [address]- 7044 Jul, [facility] [place] [facility] [address] [id number] [place] [address]- 4374 Jul, [facility] [place] [facility] [address] [id number] [place] [address]- 8130 Jun, [facility] [place] [facility] [address] [id number] [place] [address]- 1357 Jun, [facility] [place] [facility] [address] [id number] [place] [address]- 2287 Jun, [facility] [place] [facility] [address] [id number] [place] [address]- 2639 Jun, [facility] [place] [facility] [address] [id number] [place] [address]- 3478 Jun, [facility] [place] [facility] [address] [id number] [place] [address]- 5364 May, [facility] [place] [facility] [address] [id number] [place] [address]- 6571 May, [facility] [place] [facility] [address] [id number] [place] [address]- 5439 May, [facility] [place] [facility] [address] [id number] [place] [address]- 3056 May, [facility] [place] [facility] [address] [id number] [place] [address]- 1746 May, [facility] [place] [facility] [address] [id number] [place] [address]- 1812 May, [facility] [place] [facility] [address] [id number] [place] [address]- 3760 Apr, [facility] [place] [facility] [address] [id number] [place] [address]- 7160 Mar, [facility] [place] [facility] [address] [id number] [place] [address]- 1276 Feb, [facility] [place] [facility] [address] [id number] [place] [address]- 4845 Feb, [facility] [place] [facility] [address] [id number] [place] [address]- 4090 Feb, [facility] [place] [facility] [address] [id number] [place] [address]- 0557 Feb, [facility] [place] [facility] [address] [id number] [place] [address]- 6393 31 Jan, 2011 [facility] [address] [id number] [place] [address]- 9698 27 Jan, 2011 [facility] [place] [facility] [address] [id number] [place] [address]- 2706 26 Jan, 2011 [facility] [address] [id number] [place] [address]- 3706 24 Jan, 2011 [facility] [place] [facility] [address] [id number] [place] [address]- 2234 14 Jan, 2011 [facility] [address] [id number] [place] [address]- 6011 19 Dec, 2010 [facility] [place] [facility] [address] [id number] [place] [address]- 6166 Oct, [facility] [address] [id number] [place] [address]- 1387 August, [facility] [place] [facility] [address] [id number] [place] [address]- 8899 29 Mar, 2010 [facility] [place] [facility] [address] [id number] [place] [address]- 8409 27 Mar, 2010 [facility] [place] [facility] [address] [id number] [place] [address]- 0906 16 Mar, 2010 [facility] [place] [facility] [address] [id number] [place] [address] 2546 15 Mar, 2010 [facility] [place] [facility] [address] [id number] [place] [address] 2549 15 Mar, 2010 [facility] [place] [facility] [address] [id number] [place] [address] 2540 08 Mar, 2010 [facility] [place] [facility] [address] [id number] [place] [address]- 2546 03 Mar, 2010 [facility] [place] [facility] [address] [id number] [place] [address]- 9955 24 Feb, 2010 [facility] [place] [facility] [address] [id number] [place] [address]- 9565 24 Feb, 2010 [facility] [place] [facility] [address] [id number] [place] [address]- 8518 15 Feb, 2010 [facility] [place] [facility] [address] [id number] [place] [address]- 1819 19 Jan, 2010 [facility] [place] [facility] [address] [id number] [place] [address]- 2936 18 Jan, 2010 [facility] [place] [facility] [address] [id number] [place] [address]- 6923 18 Jan, 2010 [facility] [place] [facility] [address] [id number] [place] [address]- 8093 Nov, [facility] [place] [facility] [address] [id number] [place] [address]- 7658 Sep, [facility] [place] [facility] [address] [id number] [place] [address]- 0156 August, [facility] [place] [facility] [address] [id number] [place] [address]- 3420 30 Mar, 2009 [facility] [place] [facility] [address] [id number] [place] [address]- 5730 07 Mar, 2009 [facility] [place] [facility] [address] [facility] [id number] [place] [address]- 9655 17 Feb, 2009 [facility] [place] [facility] [address] [id number], [place] [address]- 1244 Feb, [facility] [place] [facility] [address] [id number] [place] [address]- 7257 10 Feb, 2009 [facility] [place] [facility] [address] [id number] [place] [address]- 7525 10 Feb, 2009 [facility] [place] [facility] [address] [id number] [place] [address]- 5443 06 Feb, 2009 [facility] [place] [facility] [address] [id number], [place] [address]- 1346 Jan, [facility] [address] [id number], [place] [address]- 8447 Jan, [facility] [id number], [place] [address]- 4916 Jan, [facility] [id number], [place] [address]- 7146 Jan, [facility] [id number], [place] [address]- 9617 Nov, [facility] [id number], [place] [address]- 3975 Sep, [facility] [id number] [place] [address] 12583- 4596 August, [facility] [id number], [place] [address]- 4818 Jul, [facility] [address] [id number], [place] [address]- 4076 May, IMMUNIZATIONS No Known Immunizations SOCIAL HISTORY Never Assessed REASON FOR VISIT MS f/u with med refills. PT has been struggling with holding her urine-[facility] [place] PLAN OF CARE VITAL SIGNS Height 64 in 2017-07-11 Weight 156.3 lbs 2017-07-11 Temperature 99.0 degrees Fahrenheit 2017-07-11 Heart Rate 89 bpm 2017-07-11 Respiratory Rate 22 2017-07-11 Oximetry on room air:93 % 2017-07-11 BMI 26.83 kg/m2 2017-07-11 Blood pressure systolic 106 mmHg 2017-07-11 Blood pressure diastolic 68 mmHg 2017-07-11 MEDICATIONS Medication Instructions Dosage Frequency Start Date End Date Duration Status Tramadol HCl 50 MG Orally every 4 hrs 1 tablet as needed 4h Not- Taking Benefiber - Active Alendronate Sodium 70 MG TAKE 1 TABLET EVERY WEEK Active Simvastatin 20mg Orally Once a day 1 tablet in the evening 24h Active HydrOXYzine HCl 50 MG Orally three times a day as needed 1 tablet 30 days Active Lamictal 25 MG Orally every night 3 tablets Apr, 30 days Active Ropinirole HCl 2 MG TAKE 1 TABLET ONE TIME DAILY AT BEDTIME 90 Active Vitamin D 50,000 Orally once a week 1 tablet Active Spiriva HandiHaler 18 MCG Inhalation Once a day 1 capsule 24h Active Fluticasone Propionate 50 MCG/ACT Nasally 2 times a day 2 sprays in each nostril 12h 30 days Active Diltiazem HCl ER 240 MG Orally Once a day 1 capsule 24h Active Mupirocin 2 % Externally two times a day 1 application to affected area 12h Active Cetirizine HCl 10 MG Orally Once a day 1 tablet as needed 24h Not- Taking Albuterol Sulfate 2.5 mg /3 mL (0.083 %) 1 Each by Inhalation route every 4 hours for cough and wheeze PRN for wheezing or cough Jun, Not-Taking Oxybutynin Chloride 5 mg Orally Twice a day 1 tablet 12h Jul, 30 day(s) Active Omeprazole 40 mg Orally Once a day 1 capsule 24h Active Ventolin HFA 108 (90 Base) MCG/ACT INHALE 2 PUFFS EVERY 4 HOURS NEEDED 16 Active Nitroglycerin 0.4 MG Active Pantoprazole Sodium 40 MG Orally 2 times a day 1 tablet 12h Active Eliquis 5 MG Orally 2 times a day 12h Active Xifaxan 550 MG Orally Three times a day 1 tablet 8h Active Magnesium Active Singulair 10 MG Orally Once a day take 1 tablet (10 mg) by oral route once daily in the evening 24h Oct, Active Melatonin 5 MG Orally Once a day 1 tablet at bedtime as needed with food 24h Jun, 30 day(s) Not-Taking Oxygen 5 inhalation all the time Active Hydrocodone-Acetaminophen 5-325 MG Orally every 6 hrs 1 tablet as needed 6h Jun, Active Remeron 45 MG Orally Once a day at bedtime 1 tablet Feb, 30 days Active Gabapentin 600 MG TAKE 1 TABLET THREE TIMES DAILY 90 Active Toprol XL 25 MG Orally Once a day 1 tablet 24h Active Calcium Active Primidone 250 mg Orally Three times a day 1 tablet 8h 90 days Active Symbicort 160-4.5 MCG/ACT INHALE 2 PUFFS TWICE DAILY, IN THE MORNING AND IN THE EVENING 90 Active Zofran ODT 4 mg Orally every 4 hrs 1 tablet on the tongue and allow to dissolve 4h Jul, 1 days Active Abilify 5 MG Orally Once a day 1 tablet 24h Active Lyrica 50 mg Orally Three times a day 1 capsule 8h Jun, Active Lomotil 2.5-0.025 mg Orally Four times a day TWO TABLETS 6h 30 Active Promethazine-Codeine 6.25-10 MG/5ML Orally every 6 hrs 5 ml as needed 6h 15 Jun, 2017 Active Namenda 10 MG TAKE 1 TABLET EVERY DAY Active Baclofen 20 MG TAKE ONE TABLET BY MOUTH THREE TIMES DAILY WITH FOOD OR MILK 30 Active Glucometer 1 test blood sugar Jul, Active Welchol 625 MG Orally twice a day 2 tablets 12h Active RESULTS No Results PROCEDURES Procedure Date Ordered Result Body Site [facility] VISIT ESTABLISHED PATIENT July 11, 2017 INSTRUCTIONS MEDICATIONS ADMINISTERED No Known Medications [...] Knee Surgery 07/16/17 Hospitalization History [facility] [place]- left hand/wrist swelling 10/09/2017
--- OUTSIDE RECORDS SUMMARY | 2018-01-01 12:25 | XMS REPORT ---
Author Author [facility]UN[facility] Address [address] [place] [address] Care Team Providers Care National Sales Representative Name Role Phone SENAIT DUNLAP Unavailable PROBLEMS Type Condition ICD9-CM Code [id number] Code Onset Dates Condition Status SNOMED Code Problem History of common bile duct surgery Z98.89 Active 335852514 Problem Barretts esophagus K22.70 Active 968915335 Problem 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 Active 67057570 Problem Colon polyp K63.5 Active 23634805 Problem Bilateral low back pain without sciatica M54.5 Active 168505677 Problem Screening breast examination Z12.39 Active 963194316 Problem Postmenopausal Z78.0 Active 99579414 Problem Osteopenia M85.80 Active 245288588 Problem Cigarette nicotine dependence without complication F17.210 Active 41275564 Problem Type 2 diabetes mellitus with diabetic peripheral angiopathy without gangrene E11.51 Active 190718535 Problem Vascular dementia without behavioral disturbance F01.50 Active 24639601420295914 Problem Unspecified atherosclerosis of [place] arteries of extremities, unspecified extremity I70.209 Active 167548131349805 Problem Arthritis M19.90 Active 8198936 Problem Chronic atrial fibrillation I48.2 Active 655713208 Problem Chronic obstructive pulmonary disease with acute lower respiratory infection J44.0 Active 071671103 Problem Other chronic pancreatitis K86.1 Active 329008826 Problem Stress incontinence of urine N39.3 Active 70029639 Problem Controlled type 2 diabetes mellitus without complication, without long -term current use of insulin E11.9 Active 445474510 Problem Unspecified psychosis F29 Active 61027779 Problem Xeroderma Q80.9 Active 45853068 Problem COPD (chronic obstructive pulmonary disease) J44.9 Active 88238300 Problem Dementia without behavioral disturbance, unspecified dementia type F03.90 Active 22468928 Problem Gastroparesis K31.84 Active 130684250 Problem Type 2 diabetes mellitus with diabetic neuropathy, without long-term current use of insulin E11.40 Active 41466305 Problem Osteoporosis M81.0 Active 08036578 Problem Atherosclerosis of [place] artery of both lower extremities with intermittent claudication I70.213 Active 506459177220560 Problem Hyperlipidemia E78.5 Active 41206540 Problem Diabetic polyneuropathy associated with type 2 diabetes mellitus E11.42 Active 24303215 Problem Essential tremor G25.0 Active 06585301 Problem Atherosclerotic heart disease of [place]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 I25.118 Active 0074734512637 Problem Generalized anxiety disorder F41.1 Active 551289399 Problem Gastroesophageal reflux disease, esophagitis presence not specified K21.9 Active 511938925 Problem Coronary artery disease involving [place] coronary artery of [place] 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 I25.118 Active 2164184067433 Problem Postconcussion syndrome F07.81 Active 96393998 Problem Chronic pain syndrome G89.4 Active 468514075 Problem Migraine without aura and without status migrainosus, not intractable G43.009 Active 776205260 Problem Paroxysmal atrial fibrillation I48.0 Active 424752507 Problem Migraine without aura and with status migrainosus, not intractable G43.001 Active 911951969 Problem Cervicalgia M54.2 Active 7845493150475 Problem Acute exacerbation of chronic obstructive pulmonary disease (COPD) J44.1 Active 586318822 Problem Major depressive disorder, recurrent episode, moderate F33.1 Active 676464771 Problem Crohn''s disease without complication, unspecified gastrointestinal tract location K50.90 Active 99317731 Problem Chronic fatigue R53.82 Active 78096373 Problem Bipolar affective disorder, currently depressed, moderate F31.32 Active 735107924 ALLERGIES No Information ENCOUNTERS Encounter Location Date Diagnosis [facility] [address] [facility] [id number] [address] Nov, [facility] [id number] [address] Nov, [place] [id number], [place] [address] Oct, [facility] [id number], [place] [address] Oct, Bipolar affective disorder, currently depressed, moderate F31.32 ; Vascular dementia without behavioral disturbance F01.50 and Generalized anxiety disorder F41.1 [facility] [id number] [place] [address] 43474- 9002 Oct, [facility] [id number] [place] [address] 81588- 5147 Oct, [facility] [id number] [place] [address] 55116- 8319 Oct, Edema of both legs R60.0 [facility] [id number] [place] [address] 65284- 1969 Oct, [facility] [id number] [place] [address] 37524- 4475 Sep, [facility] [id number] [place] [address] 58429- 3719 Sep, [facility] [id number] [place] [address] 74215- 2768 Sep, [facility] [id number] [place] [address] 08068- 0171 Sep, Encounter for well woman exam with routine gynecological exam Z01.419 ; Screening for STDs (sexually transmitted diseases) Z11.3 ; Screening breast examination Z12.31 and Overweight (BMI 25.0-29.9) E66.3 [facility] [address] [address] Sep, [facility] [id number] [address] 09[address] Sep, [facility] [id number] [place] [address] 99836- 7479 Sep, [facility] [id number] [place] [address] 86279- 6658 August, [facility] [id number] [address] August, [facility] [id number] [address] August, Type 2 diabetes mellitus with diabetic neuropathy, without long-term current use of insulin E11.40 and Sprain of right ankle, unspecified ligament, initial encounter S93.401A [facility] [id number] [address] August, [facility] [id number] [place] [address] 50250- 7685 August, [facility] [id number] [place] [address] 14774- 2137 August, [facility] [id number] [place] [address] 60958- 6489 August, Gastroesophageal reflux disease, esophagitis presence not specified K21.9 [facility] [id number] [place] [address] 58249- 0190 August, [facility] [id number] [place] [address] 23518- 5529 August, [facility] [id number] [place] [address] 45846- 3264 August, [facility] [id number] [place] [address] 22619- 9996 August, Type 2 diabetes mellitus with diabetic neuropathy, without long-term current use of insulin E11.40 and Elevated liver enzymes R74.8 [facility] [address] [place] [address] 47434- 8528 Jul, [facility] [id number] [place] [address] 04258- 9028 Jul, Cough R05 [facility] [address] [place] [address] 37834- 1647 Jul, [facility] [address], [place] [address] 4027 Jul, [facility] [id number] [place] [address] 52997- 1857 Jul, Bipolar affective disorder, currently depressed, moderate F31.32 ; Vascular dementia without behavioral disturbance F01.50 and Generalized anxiety disorder F41.1 [facility] [id number] [place] [address] 19240- 6546 Jul, [facility] [address] 28890- 0719 Jul, Type 2 diabetes mellitus with diabetic neuropathy, without long-term current use of insulin E11.40 and Elevated liver enzymes R74.8 [facility] [address] 25375- 5545 Jul, [facility] [id number] [place] [address] 74409- 8003 Jul, [facility] [id number] [place] [address] 78062- 0457 Jul, [facility] [id number] [place] [address] 68033- 6400 Jul, Post-menopausal Z78.0 [facility] [address] 51577- 3858 Jul, Stress incontinence of urine N39.3 [facility] [id number] [place] [address] 23161- 2079 Jul, [facility] [id number] [place] [address] 21327- 6313 Jul, [facility] [id number] [place] [address] 08039- 0421 Jul, Stress incontinence of urine N39.3 and Cough R05 [facility] [id number] [place] [address] 08708- 9535 Jul, [facility] [id number] [place] [address] 38849- 0817 Jul, [facility] [id number] [place] [address] 77012- 9196 Jul, [facility] [id number] [place] [address] 60202- 6170 Jul, Gastroesophageal reflux disease, esophagitis presence not specified K21.9 [facility] [address] [place] [address] 38903- 1693 Jun, Diabetic polyneuropathy associated with type 2 diabetes mellitus E11.42 [facility] [id number] [place] [address] 87401- 3098 Jun, Diabetic polyneuropathy associated with type 2 diabetes mellitus E11.42 ; Coronary artery disease involving [place] coronary artery of [place] 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 I25.118 and Paroxysmal atrial fibrillation I48.0 [place] [id number] [place] [address] 11504- 3156 Jun, [place] [id number] [place] [address] 26996- 2980 Jun, [facility] [id number] [place] [address] 28751 2541 Jun, Gastroenteritis K52.9 [facility] [id number] [place] [address] 53728 2546 Jun, Gastroenteritis K52.9 [facility] [address] [place] [address] 85115 2545 Jun, [facility] [id number] [place] [address] 19512 2544 Jun, [facility] [address] [place] [address] 15531- 8896 Jun, Sprain of right ankle, unspecified ligament, [...] without complication, unspecified gastrointestinal tract location K50.90 [facility] [address] [place] [address] 99552 -8353 17 Jun, 2017 Cough R05 and Chronic obstructive pulmonary disease with acute lower respiratory infection J44.0 [facility] [id number] [place] [address] 58001- 6608 Jun, [place] [id number] [place] [address] 92794- 4033 Jun, Coughing R05 ; Unspecified atherosclerosis of [place] arteries of extremities, unspecified extremity I70.209 ; Type 2 diabetes mellitus with diabetic peripheral angiopathy without gangrene E11.51 ; Crohn''s disease without complication, unspecified gastrointestinal tract location K50.90 ; Other chronic pancreatitis K86.1 and Chronic atrial fibrillation I48.2 [facility] [id number] [place] [address] 13168 -7870 Jun, [place] [id number] [place] [address] 41810- 2164 Jun, Bipolar affective disorder, currently depressed, moderate F31.32 ; Vascular dementia without behavioral disturbance F01.50 and Generalized anxiety disorder F41.1 [place] [id number] [place] [address] 35080- 5896 May, Generalized anxiety disorder F41.1 [place] [id number] [place] [address] 74101- 9190 May, [place] [id number] [place] [address] 51434- 8873 May, [place] [id number] [place] [address] 17526- 1422 May, Coughing R05 [place] [id number] [place] [address] 25116- 1406 09 May, 2017 [place] [id number] [place] [address] 32183- 0434 May, Bipolar affective disorder, currently depressed, moderate F31.32 ; Vascular dementia without behavioral disturbance F01.50 and Generalized anxiety disorder F41.1 [place] [id number] [place] [address] 00736- 9558 Apr, Generalized anxiety disorder F41.1 [place] [id number] [place] [address] 06926- 2292 Apr, [place] [id number] [place] [address] 46531- 5402 Apr, Vascular dementia without behavioral disturbance F01.50 ; Generalized anxiety disorder F41.1 and Bipolar affective disorder, currently depressed, moderate F31.32 [place] [id number] [place] [address] 58441- 5574 Apr, Generalized anxiety disorder F41.1 [facility] [id number] [place] [address] 40691 -7691 Apr, Cough R05 and Acute exacerbation of chronic obstructive pulmonary disease (COPD) J44.1 [place] [id number] [place] [address] 35838- 3505 Apr, [facility] [id number] [place] [address] 60733 -6149 Mar, Cough R05 and Cigarette nicotine dependence without complication F17.210 [place] [id number] [place] [address] 64053- 1701 Mar, [place] [id number] [place] [address] 92183- 7143 Feb, Generalized anxiety disorder F41.1 ; Major depressive disorder, recurrent episode, moderate F33.1 ; Vascular dementia without behavioral disturbance F01.50 and Unspecified psychosis F29 [place] [id number] [place] [address] 61444- 5521 Feb, [place] [id number] [place] [address] 67503- 9402 Feb, [place] [id number] [place] [address] 77723- 3630 Feb, Generalized anxiety disorder F41.1 [place] [id number] [place] [address] 02037- 3562 Feb, Generalized anxiety disorder F41.1 [place] [address] 80914- 0797 Feb, Dizziness R42 ; Chronic fatigue R53.82 ; Postconcussion syndrome F07.81 ; Fall, initial encounter W19.XXXA and Disorientation R41.0 [place] [address] 44862- 6289 Feb, Postconcussion syndrome F07.81 ; Injury of head, initial encounter S09.90XA ; Fall, initial encounter W19.XXXA ; Disorientation R41.0 and Acute cystitis with hematuria N30.01 [place] [address] 27079- 9952 Jan, Gastroesophageal reflux disease, esophagitis presence not specified K21.9 ; Post-menopausal Z78.0 and Migraine without aura and without status migrainosus, not intractable G43.009 [place] [id number] [place] [address] 95044- 1336 Jan, [place] [id number] [place] [address] 25755- 4795 Jan, Generalized anxiety disorder F41.1 ; Major depressive disorder, recurrent episode, moderate F33.1 ; Vascular dementia without behavioral disturbance F01.50 and Unspecified psychosis F29 [place] [address] 95908- 5760 Jan, Pneumonia of left lower lobe due to infectious organism J18.1 [place] [id number] [place] [address] 64915- 0862 Jan, Migraine without aura and with status migrainosus, not intractable G43.001 [facility] [address], [place] [address] 04 Jan, 2017 Migraine without aura and without status migrainosus, not intractable G43.009 [facility] [address] [place] [address] 81345- 8494 19 Dec, 2016 Hematoma T14.8 [facility] [id number] [place] [address] 67639- 0043 Dec, [facility] [id number] [place] [address] 30601 -8708 Nov, Fatigue, unspecified type R53.83 [place] [id number] [place] [address] 88110- 0560 Nov, Scabies B86 and Coronary artery disease involving [place] coronary artery of [place] 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 I25.118 [place] [id number] [place] [address] 33800- 8621 Nov, [facility] [id number] [place] [address] 03822- 8347 Nov, [place] [id number] [place] [address] 63083- 6537 Oct, [place] [id number] [place] [address] 02320- 2122 Oct, Generalized anxiety disorder F41.1 and Major depressive disorder, recurrent episode, moderate F33.1 [facility] [address] [place] [address] 19596- 8315 Oct, Cramp of both lower extremities R25.2 [place] [id number] [place] [address] 64258- 5843 Oct, Leg cramps R25.2 [place] [id number] [place] [address] 56463- 3082 Oct, Chronic pain syndrome G89.4 [place] [id number] [address]- 5169 17 Oct, 2016 [facility] [address] [place] [address] 58550- 1892 14 Oct, 2016 [facility] [id number] [place] [address] 10222- 9986 11 Oct, 2016 Routine gynecological examination Z01.419 and Screening for breast cancer Z12.31 [place] [id number] [place] [address] 22827- 2339 28 Sep, 2016 Diarrhea R19.7 [place] [id number] [place] [address] 74423- 7306 Sep, Back pain M54.9 [place] [id number] [place] [address] 14719- 2872 Sep, [place] [id number] [place] [address] 88123- 5872 Sep, [facility] [id number] [place] [address] 48669 -9976 August, Xeroderma Q80.9 [place] [id number] [place] [address] 24208- 0335 August, Dementia without behavioral disturbance, unspecified dementia type F03.90 [place] [id number] [place] [address] 64997- 3614 August, Chronic pain syndrome G89.4 [place] [id number] [place] [address] 28841- 2886 August, [facility] [id number] [place] [address] 39772- 5842 August, Hyperlipidemia E78.5 ; Other fatigue R53.83 and Other specified hypotension I95.89 [facility] [address], [place] [address] August, Dysuria R30.0 ; Other fatigue R53.83 and Other specified hypotension I95.89 [facility] [id number] [place] [address] 07771- 2429 August, [facility] [address] 86624- 8159 Jul, Pain in left knee M25.562 and Gastroenteritis K52.9 [facility] [address] 60162- 3296 Jul, [facility] [address] 49928- 0764 Jul, Diarrhea R19.7 [facility] [address] 46988 -5033 Jul, Spider bite, accidental or unintentional, initial encounter T63.301A [place] [address] 52502- 8215 Jul, Primary osteoarthritis of right knee M17.11 and Arthritis M19.90 [facility] [address] 90234- 3453 Jul, Generalized anxiety disorder F41.1 and Major depressive disorder, recurrent episode, moderate F33.1 [facility] [id number] [place] [address] 08940- 9230 Jul, Type 2 diabetes mellitus with diabetic polyneuropathy E11.42 and Temporal headache R51 [facility] [id number] [place] [address] 28730- 6170 Jul, Back pain M54.9 [facility] [id number] [place] [address] 86998- 2171 Jul, [facility] [address] 40680- 9766 Jul, [facility] [id number] [place] [address] 42752- 6298 Jun, Nausea R11.0 [facility] [address] [place] [address] Jun, Acute suppurative otitis media of both ears without spontaneous rupture of tympanic membranes, recurrence not specified H66.003 and COPD exacerbation J44.1 [facility] [address] 38638- 2950 Jun, Generalized anxiety disorder F41.1 [place] [address] 95746- 5007 16 Jun, 2016 [facility] [address] 40181 -5380 Jun, [facility] [address] 92355 -2973 Jun, Shortness of breath R06.02 and COPD exacerbation J44.1 [place] [address] 53456- 9837 Jun, Eczema, unspecified type L30.9 [place] [address] 23295- 7991 Jun, [place] [address] 29024- 1929 May, [place] [id number] [place] [address] 67401- 8196 May, Muscle cramping R25.2 [place] [id number] [place] [address] 43934- 1085 May, [place] [address] 81806- 0502 Apr, Diarrhea R19.7 [place] [address] 34388- 4985 Apr, [place] [id number] [place] [address] 10298- 6067 Apr, Chronic pain syndrome G89.4 [place] [id number] [place] [address] 13917- 9624 16 Apr, 2016 Cramp of both lower extremities R25.2 and Vascular dementia without behavioral disturbance F01.50 [place] [address] 13065- 7503 Apr, Type 2 diabetes mellitus with diabetic polyneuropathy E11.42 and Cigarette nicotine dependence without complication F17.210 [place] [address] 96408- 1235 Mar, Generalized anxiety disorder F41.1 [place] [address] 99947- 4402 Feb, Generalized anxiety disorder F41.1 and Major depressive disorder, recurrent episode, moderate F33.1 [place] [address] 04766- 9957 Feb, [facility] [address] 81705 -1701 Feb, Dysuria R30.0 and Acute cystitis with hematuria N30.01 [place] [address] 42576- 9626 Jan, [place] [address] 82818- 9462 Jan, [place] [address] 68394- 0200 Jan, [place] [address] 95899- 6441 Jan, [facility] [address] 41267 -9153 Jan, Wasp sting, accidental or unintentional, initial encounter T63.461A [place] [address] 73638- 1700 06 Jan, 2016 Encounter for immunization Z23 [place] [address] [address] [address] Jan, [facility] [address], [place] [address] 98[address] Jan, [facility] [id number] [place] [address] 51672- 3263 28 Dec, 2015 Generalized anxiety disorder F41.1 and Major depressive disorder, recurrent episode, moderate F33.1 [facility] [id number] [place] [address] 73296- 8507 21 Dec, 2015 Routine gynecological examination Z01.419 ; Postmenopausal Z78.0 ; Screening breast examination Z12.39 ; Osteopenia M85.80 and Breast cancer screening Z12.39 [facility] [id number] [place] [address] 06123- 4895 20 Dec, 2015 [facility] [id number] [place] [address] 11606- 2030 19 Dec, 2015 [facility] [id number] [place] [address] 35521- 7358 16 Dec, 2015 [facility] [id number] [place] [address] 01381- 7803 16 Dec, 2015 [facility] [id number] [place] [address] 48158- 0274 14 Dec, 2015 [facility] [id number] [place] [address] 41209- 5228 Dec, [facility] [id number] [place] [address] 10085- 0616 Nov, [facility] [id number] [place] [address] 27712 -7608 Nov, Cough R05 ; Other viral agents as the cause of diseases classified elsewhere B97.89 and Acute upper respiratory infection, unspecified J06.9 [facility] [address], [place] [address] 3488 Nov, [facility] [id number] [place] [address] 28003- 4271 Nov, [facility] [address], [place] [address] 6271 Nov, [facility] [address], [place] [address]- 4462 Nov, [facility] [address], [place] [address]- 0489 Nov, [facility] [id number] [place] [address] 90488- 5995 Oct, [facility] [id number] [place] [address] 88748- 6754 Oct, [facility] [id number], [place] [address] 4256 Oct, [facility] [id number] [place] [address] 00935- 2907 Oct, Chronic pain syndrome G89.4 [facility] [address], [place] [address] 3919 Sep, Generalized anxiety disorder F41.1 and Major depressive disorder, recurrent episode, moderate F33.1 [facility] [address], [place] [address]- 1044 Sep, [facility] [address], [place] [address]- 2417 Sep, [facility] [address], [place] [address]- 4964 14 Sep, 2015 Generalized anxiety disorder F41.1 [facility] [address], [place] [address]- 9816 13 Sep, 2015 Cramp of both lower extremities R25.2 and Cervicalgia M54.2 [facility] [address], [place] [address]- 0984 06 Sep, 2015 Generalized anxiety disorder F41.1 [facility] [id number], [place] [address] 6425 Sep, [facility] [id number] [place] [address] 31176 -3470 August, Rash R21 ; Itching L29.9 and Allergic response, subsequent encounter T78.40XD [facility] [id number] [place] [address] 50153- 9300 August, Primary insomnia F51.01 [facility] [id number] [place] [address] 97905 -6624 August, Rash R21 ; Itching L29.9 and Allergic response, initial encounter T78.40XA [facility] [id number] [place] [address] 98535- 7388 August, [facility] [id number] [place] [address] 85961- 5376 August, Cramp of both lower extremities R25.2 [facility] [id number] [place] [address] 98205- 2137 August, Back pain M54.9 [facility] [id number] [place] [address] 19034- 4405 August, [facility] [id number] [place] [address] 73386- 2321 August, [facility] [id number] [place] [address] 10421 -8791 August, Cramp of both lower extremities R25.2 [facility] [id number] [place] [address] 43448- 7602 August, [facility] [id number] [place] [address] 41307- 8240 August, Syncope R55 ; Paroxysmal atrial fibrillation I48.0 ; Dementia without behavioral disturbance, unspecified dementia type F03.90 and Chronic pain syndrome G89.4 [facility] [id number] [place] [address] 35467- 6310 August, Type 2 diabetes mellitus with diabetic polyneuropathy E11.42 and Syncope R55 [facility] [id number] [place] [address] 22399- 2364 Jul, [facility] [id number] [place] [address] 67625- 5074 Jul, [facility] [id number] [place] [address] 22884- 9501 Jul, [facility] [id number] [place] [address] 12325- 1790 Jul, [facility] [id number] [place] [address] 22370- 0996 Jul, [facility] [id number] [place] [address] 99192- 8273 Jul, UTI (urinary tract infection) N39.0 [facility] [id number] [place] [address] 91018- 3536 Jul, [facility] [id number] [place] [address] 00749- 8144 Jul, Major depressive disorder, recurrent episode, moderate F33.1 and Generalized anxiety disorder F41.1 [facility] [id number] [place] [address] 09562- 7887 Jul, Generalized anxiety disorder F41.1 [facility] [id number] [place] [address] 69874- 5194 Jul, Diarrhea R19.7 [facility] [id number] [place] [address] 80297- 8666 Jul, [facility] [id number] [place] [address] 25082- 7146 Jun, [facility] [id number] [place] [address] 12195- 7745 Jun, Eczema L30.9 [facility] [address], [place] [address]- 4115 Jun, [facility] [address], [place] [address]- 6326 Jun, COPD (chronic obstructive pulmonary disease) J44.9 [facility] [address], [place] [address]- 2456 Jun, [facility] [id number] [place] [address] 64133- 5976 Jun, Major depressive disorder, recurrent episode, moderate F33.1 and Generalized anxiety disorder F41.1 [facility] [address], [place] [address]- 4136 May, [facility] [address], [place] [address]- 1530 May, UTI (urinary tract infection) N39.0 [facility] [address], [place] [address]- 8199 May, [facility] [address], [place] [address]- 2564 May, [facility] [address], [place] [address]- 5295 May, [facility] [address], [place] [address]- 4976 May, [facility] [address], [place] [address]- 5147 Apr, Major depressive disorder, recurrent episode, moderate F33.1 and Generalized anxiety disorder F41.1 [facility] [address], [place] [address]- 7610 Apr, COPD (chronic obstructive pulmonary disease) J44.9 [facility] [address], [place] [address]- 5216 Apr, [facility] [id number] [address]- 6920 Apr, Atrial flutter I48.92 [facility] [id number] [place] [address] 21330- 6465 Apr, [facility] [id number] [place] [address] 58094- 1387 Apr, [facility] [id number] [place] [address] 39732- 2182 Mar, [facility] [id number] [place] [address] 76804- 8095 Mar, [facility] [id number] [place] [address] 87425- 0265 Mar, [facility] [id number] [place] [address] 96556- 6573 Mar, Hyperlipidemia E78.5 ; Type 2 diabetes mellitus with diabetic polyneuropathy E11.42 ; Major depressive disorder, recurrent episode, moderate F33.1 and Chronic pain syndrome G89.4 [facility] [id number] [place] [address] 81739- 2129 Mar, [facility] [id number] [place] [address] 03654- 0702 Mar, [facility] [id number] [place] [address] 93901- 5543 Mar, [facility] [id number] [place] [address] 85547- 9038 Mar, [facility] [id number] [place] [address] 65627- 8120 Feb, COPD (chronic obstructive pulmonary disease) J44.9 and Back pain M54.9 [facility] [address], [place] [address]- 8058 Feb, [facility] [id number] [place] [address] 58045- 6735 Feb, [facility] [address], [place] [address]- 1471 Feb, [facility] [id number] [place] [address] 85018- 8366 Feb, [facility] [address], [place] [address]- 2424 Feb, [facility] [id number] [place] [address] 97110- 7954 Feb, [facility] [id number] [place] [address] 28615- 2140 Feb, [facility] [id number] [place] [address] 99126- 1042 Feb, [facility] [id number] [place] [address] 30403- 6824 Feb, Diabetes E11.9 ; Back pain M54.9 and COPD (chronic obstructive pulmonary disease) J44.9 [facility] [id number] [place] [address] 53319- 4123 Jan, [facility] [id number] [place] [address] 93021- 5827 Jan, Major depression, recurrent F33.9 and Generalized anxiety disorder F41.1 [facility] [address] [place] [address] 75055- 1805 Jan, Chronic pain G89.29 [facility] [address], [place] [address]- 3154 Jan, [facility] [id number] [place] [address] 20598- 7481 Jan, [facility] [id number] [place] [address] 16808- 9030 Jan, [facility] [address], [place] [address]- 9650 Jan, [facility] [id number] [place] [address] 46974- 6035 Jan, Nicotine dependence F17.200 [facility] [address] 33078- 6025 Jan, Nicotine dependence F17.200 and Back pain M54.9 [facility] [id number] [place] [address] 02463- 7788 Jan, [facility] [id number] [place] [address] 21533- 8253 28 Dec, 2014 [facility] [id number] [place] [address] 80002- 3703 25 Dec, 2014 Anxiety, generalized 300.02 and Major depression, recurrent 296.30 [facility] [id number] [place] [address] 77360- 2849 24 Dec, 2014 [facility] [id number] [place] [address] 84283- 8127 21 Dec, 2014 [facility] [id number] [place] [address] 98697- 4276 17 Dec, 2014 [facility] [id number] [place] [address] 73314- 0355 15 Dec, 2014 [facility] [id number] [place] [address] 59317- 2388 14 Dec, 2014 [facility] [id number] [place] [address] 99864- 6022 11 Dec, 2014 [facility] [id number] [place] [address] 03311- 7412 10 Dec, 2014 [facility] [id number] [place] [address] 28738- 7059 08 Dec, 2014 Skin tear 879.8 [facility] [address] [place] [address] 40901- 4586 08 Dec, 2014 Routine gynecological examination V72.31 ; Breast cancer screening V76.10 and Family history of breast cancer in first degree relative V16.3 [facility] [address], [place] [address]- 9482 Dec, [facility] [id number] [place] [address] 26067- 5319 Dec, [facility] [address], [place] [address]- 5637 Nov, [facility] [id number] [place] [address] 82658- 6824 Nov, [facility] [address] [place] [address] 26078- 3279 Nov, Poor balance 781.99 and Vascular dementia, uncomplicated 290.40 [facility] [id number] [place] [address] 92833- 4624 Nov, [facility] [id number] [place] [address] 20834- 3808 Nov, Major depression, recurrent 296.30 and Anxiety, generalized 300.02 [facility] [id number] [place] [address] 92920- 6684 Nov, [facility] [id number] [place] [address] 00964- 4234 Nov, [facility] [address], [place] [address]- 9238 Nov, [facility] [id number] [place] [address] 60136- 8423 Nov, [facility] [address], [place] [address]- 1317 Nov, Vascular dementia, uncomplicated 290.40 and Lumbago 724.2 [facility] [address], [place] [address]- 6826 Nov, [facility] [address] [place] [address] 96441- 0657 Nov, [facility] [address], [place] [address]- 6026 Nov, [facility] [address], [place] [address]- 0747 Oct, [facility] [address], [place] [address]- 1269 Oct, [facility] [id number] [place] [address] 73875- 7115 Oct, [facility] [address], [place] [address]- 3832 Oct, COPD (chronic obstructive pulmonary disease) 496 and Hyperlipidemia 272.4 [facility] [address], [place] [address]- 2748 Oct, Major depression, recurrent 296.30 and Anxiety, generalized 300.02 [facility] [id number] [place] [address]- 4954 Oct, [facility] [address], [place] [address]- 7334 Oct, [facility] [address], [place] [address]- 1304 Oct, [facility] [address], [place] [address]- 7759 Sep, Lumbago 724.2 and Anxiety state, unspecified 300.00 [facility] [address], [place] [address]- 4113 Sep, [facility] [address], [place] [address]- 3416 Sep, [facility] [address], [place] [address]- 8402 August, [facility] [id number] [address]- 1475 August, Major depression, recurrent 296.30 ; Anxiety, generalized 300.02 and No condition on [place] V71.09 [facility] [id number] [place] [address]- 8560 August, [facility] [address] [facility] [id number] [place] 4546 August, [facility] [address], [place] [address]- 8853 Jul, [facility] [address] [facility] [id number] [place] [address]- 7809 Jul, [facility] [address] [place] [address]- 3362 Jul, [facility] [id number] [place] [address]- 0979 Jun, [facility] [address] [place] [address]- 2383 Jun, [facility] [id number], [place] [address]- 4948 Jun, [facility] [address] [place] [address]- 1707 Jun, [facility] [id number], [place] [address]- 0417 Jun, [facility] [address] [place] [address]- 4188 Jun, [facility] [id number], [place] [address]- 0274 23 Jun, 2014 [facility] [id number]- 5496 17 Jun, 2014 [facility] [address] [facility] [id number] 6212 Jun, [facility] [id number] 5523 Jun, [facility] [place] [facility] [address] [id number] [place] [address]- 7810 10 Jun, 2014 [facility] [place] [facility] [address] [id number] [place] [address]- 5550 10 Jun, 2014 [facility] [place] [facility] [address] [id number] [place] [address]- 4804 07 Jun, 2014 [facility] [place] [facility] [address] [id number] [place] [address]- 2833 07 Jun, 2014 [facility] [place] [facility] [address] [id number] [place] [address]- 6059 Jun, [facility] [place] [facility] [address] [id number] [place] [address]- 5788 Jun, 2014 [facility] [place] [facility] [address] [id number] [place] [address]- 5950 May, [facility] [place] [facility] [address] [id number] [place] [address]- 9314 May, 2014 [facility] [place] [facility] [address] [id number] [place] [address]- 4902 May, [facility] [place] [facility] [address] [facility] [id number] [place] [address]- 3942 May, 2014 [facility] [place] [facility] [address] [facility] [id number] [place] [address]- 8920 May, 2014 [facility] [place] [facility] [address] [id number] [place] [address]- 3847 May, 2014 [facility] [place] [facility] [address] [id number] [place] [address]- 2549 May, 2014 [facility] [place] [facility] [address] [id number] [place] [address]- 3733 12 May, 2014 [facility] [place] [facility] [address] [facility] [id number] [place] [address]- 2949 May, 2014 [facility] [place] [facility] [address] [facility] [id number] [place] [address]- 4233 May, 2014 [facility] [place] [facility] [address] [id number] [place] [address]- 5006 May, 2014 [facility] [place] [facility] [address] [id number] [place] [address]- 0026 May, 2014 [facility] [place] [facility] [address] [id number] [place] [address]- 4516 May, 2014 [facility] [place] [facility] [address] [id number] [place] [address]- 8885 May, [facility] [place] [facility] [address] [id number] [place] [address]- 8875 Apr, [facility] [place] [facility] [address] [id number] [place] [address] Apr, [facility] [place] [facility] [address] [id number] [place] [address] Apr, [facility] [place] [facility] [address] [id number] [place] [address] Apr, [facility] [place] [facility] [address] [id number] [place] [address] Apr, [facility] [place] [facility] [address] [id number] [place] [address] Apr, [facility] [place] [facility] [address] [id number] [place] [address] Apr, [facility] [place] [facility] [address] [id number] [place] [address] Apr, [facility] [place] [facility] [address] [id number] [place] [address] Apr, [facility] [place] [facility] [address] [id number] [place] [address] Apr, [facility] [place] [facility] [address] [id number] [place] [address] Apr, [facility] [place] [facility] [address] [id number] [place] [address] Apr, [facility] [place] [facility] [address] [id number] [place] [address] Mar, [facility] [place] [facility] [address] [id number] [place] [address] 31 Mar, 2014 [facility] [place] [facility] [address] [id number] [place] [address] 30 Mar, 2014 [facility] [place] [facility] [address] [id number] [place] [address] 30 Mar, 2014 [facility] [place] [facility] [address] [id number] [place] [address] Mar, [facility] [place] [facility] [address] [id number] [place] [address] Mar, [facility] [place] [facility] [address] [id number] [place] [address] Mar, [facility] [place] [facility] [address] [id number] [place] [address] 19 Mar, 2014 [facility] [place] [facility] [address] [id number] [place] [address] 15 Mar, 2014 [facility] [place] [facility] [address] [id number] [place] [address] 15 Mar, 2014 [facility] [place] [facility] [address] [id number] [place] [address] 15 Mar, 2014 [facility] [place] [facility] [address] [id number] [place] [address] 15 Mar, 2014 [facility] [place] [facility] [address] [id number] [place] [address] 15 Mar, 2014 [facility] [place] [facility] [address] [id number] [place] [address] 15 Mar, 2014 [facility] [place] [facility] [address] [id number] [place] [address] Mar, [facility] [place] [facility] [address] [id number] [place] [address] Mar, [facility] [place] [facility] [address] [id number] [place] [address] Mar, [facility] [place] [facility] [address] [id number] [place] [address] Mar, [facility] [place] [facility] [address] [id number] [place] [address] Mar, [facility] [place] [facility] [address] [id number] [place] [address] Mar, [facility] [place] [facility] [address] [id number] [place] [address] 37[address] Feb, [facility] [place] [facility] [address] [id number] [place] [address] 9335 Feb, [facility] [place] [facility] [address] [id number] [place] [address] 2036 Feb, [facility] [place] [facility] [address] [id number] [place] [address] 1298 Feb, [facility] [place] [facility] [address] [id number] [place] [address] 5967 Feb, [facility] [place] [facility] [address] [id number] [place] [address] 0899 Feb, [facility] [place] [facility] [address] [id number], [place] [address] Feb, [facility] [place] [facility] [address] [id number] [place] [address] 3290 Feb, [facility] [place] [facility] [address] [id number] [place] [address] 8616 Feb, [facility] [place] [facility] [address] [id number], [place] [address] 8625 Feb, [facility] [place] [facility] [address] [id number] [place] [address] 8285 Feb, [facility] [place] [facility] [address] [id number] [place] Feb, [facility] [place] [facility] [address] [id number] [place] [address] Feb, [facility] [place] [facility] [address] [id number] [place] [address]- 8765 Feb, [facility] [place] [facility] [address] [id number] [place] [address] 7730 Feb, [facility] [place] [facility] [address] [id number] [place] [address]- 4610 Feb, [facility] [place] [facility] [address] [id number] [place] [address]- 6723 Feb, [facility] [place] [facility] [address] [id number] [place] [address]- 6851 Jan, [facility] [place] [facility] [address] [id number] [place] [address]- 1189 Jan, [facility] [place] [facility] [address] [id number] [place] [address]- 4641 Jan, [facility] [place] [facility] [address] [id number] [place] [address]- 8420 Jan, [facility] [place] [facility] [address] [id number] [place] [address]- 3295 Jan, [facility] [place] [facility] [address] [id number] [place] [address]- 5188 Jan, [facility] [place] [facility] [address] [id number] [place] [address]- 2812 16 Jan, 2014 [facility] [place] [facility] [address] [id number] [place] [address] 16 Jan, 2014 [facility] [place] [facility] [address] [id number] [place] [address]- 8572 Jan, [facility] [place] [facility] [address] [id number] [place] [address]- 9868 Jan, [facility] [place] [facility] [address] [id number] [place] [address]- 9805 Jan, [facility] [place] [facility] [address] [id number] [place] [address]- 6320 Dec, [facility] [place] [facility] [address] [id number] [place] [address]- 2670 Dec, [facility] [place] [facility] [address] [id number] [place] [address]- 4078 Nov, [facility] [place] [facility] [address] [id number] [place] [address] 9134 Nov, [facility] [place] [facility] [address] [id number] [place] [address]- 4317 Nov, [facility] [place] [facility] [address] [id number] [place] [address]- 5032 Nov, [facility] [place] [facility] [address] [id number] [place] [address]- 7324 Nov, [facility] [place] [facility] [address] [id number] [place] [address]- 2563 Nov, [facility] [place] [facility] [address] [id number], [place] [address]- 9[address] Nov, [facility] [place] [facility] [address] [id number], [place] [address]- 3134 Oct, [facility] [place] [facility] [address] [id number] [place] [address]- 3023 Oct, [facility] [place] [facility] [address] [id number], [place] [address]- 1735 Oct, [facility] [place] [facility] [address] [id number] [place] [address] Oct, [facility] [place] [facility] [address] [id number] [place] [address]- 8395 30 Sep, 2013 [facility] [place] [facility] [address] [id number] [place] [address]- 3466 Sep, [facility] [place] [facility] [address] [id number] [place] [address]- 2520 Sep, [facility] [place] [facility] [address] [id number] [place] [address]- 0618 Sep, [facility] [place] [facility] [address] [id number] [place] [address]- 6246 Sep, [facility] [place] [facility] [address] [id number] [place] [address]- 6494 Sep, [facility] [place] [facility] [address] [id number] [place] [address]- 8444 Sep, [facility] [place] [facility] [address] [id number] [place] [address]- 2609 Sep, [facility] [place] [facility] [address] [id number] [place] [address]- 4698 Sep, [facility] [place] [facility] [address] [id number] [place] [address]- 3567 Sep, [facility] [place] [facility] [address] [id number] [place] [address]- 6221 Sep, [facility] [place] [facility] [address] [id number] [place] [address]- 9974 Sep, [facility] [place] [facility] [address] [id number] [place] [address]- 7427 Sep, [facility] [place] [facility] [address] [id number] [place] [address] 1870 Sep, [facility] [place] [facility] [address] [id number] [place] [address]- 1007 August, [facility] [place] [facility] [address] [id number] [place] [address]- 5971 August, [facility] [place] [facility] [address] [id number] [place] [address] 6270 August, [facility] [address] [id number] [place] [address]- 9227 August, [facility] [address] [id number] [place] [address]- 6059 August, [facility] [address] [id number] [place] [address]- 7525 August, [facility] [address] [id number] [place] [address]- 7265 August, [facility] [address] [id number] [place] [address]- 3726 August, [facility] [address] [id number] [place] [address]- 2067 August, [facility] [address] [id number] [place] [address]- 3439 August, [facility] [address] [id number] [place] [address] 1961 August, [facility] [address] [id number] [place] [address]- 3267 August, [facility] [address] [id number] [place] [address]- 8096 August, [facility] [address] [id number] [place] [address]- 6716 August, [facility] [place] [facility] [address] [id number] [place] [address]- 6723 August, [facility] [place] [facility] [address] [id number] [place] [address]- 7904 August, [facility] [place] [facility] [address] [id number] [place] [address]- 9040 August, [facility] [place] [facility] [address] [id number] [place] [address]- 1927 August, [facility] [place] [facility] [address] [id number] [place] [address] August, [facility] [place] [facility] [address] [id number] [place] [address]- 7122 Jul, [facility] [place] [facility] [address] [id number] [place] [address]- 8660 Jul, [facility] [place] [facility] [address] [id number] [place] [address]- 3042 Jul, [facility] [place] [facility] [address] [id number] [place] [address]- 0342 Jul, [facility] [place] [facility] [address] [id number] [place] [address]- 0302 Jun, [facility] [place] [facility] [address] [id number] [place] [address]- 7798 Jun, [facility] [place] [facility] [address] [id number] [place] [address]- 4828 Jun, [facility] [place] [facility] [address] [id number] [place] [address]- 0924 Jun, [facility] [place] [facility] [address] [id number] [place] [address]- 1512 Jun, [facility] [place] [facility] [address] [id number] [place] [address]- 4722 Jun, [facility] [place] [facility] [address] [id number] [place] [address]- 0684 Jun, [facility] [place] [facility] [address] [id number] [place] [address]- 5908 Jun, [facility] [place] [facility] [address] [id number] [place] [address]- 0654 Jun, [facility] [place] [facility] [address] [id number] [place] [address]- 9413 Jun, [facility] [place] [facility] [address] [id number] [place] [address]- 6632 May, [facility] [place] [facility] [address] [id number] [place] [address]- 1486 May, [facility] [place] [facility] [address] [id number] [place] [address]- 3016 May, [facility] [place] [facility] [address] [id number] [place] [address]- 0346 May, [facility] [place] [facility] [address] [id number] [place] [address]- 2544 May, [facility] [place] [facility] [address] [id number] [place] [address]- 0676 May, [facility] [place] [facility] [address] [facility] [id number] [place] [address]- 1061 May, [facility] [place] [facility] [address] [facility] [id number] [place] [address]- 0254 May, [facility] [place] [facility] [address] [id number] [place] [address]- 6727 May, [facility] [place] [facility] [address] [facility] [id number] [place] [address]- 6781 May, [facility] [place] [facility] [address] [facility] [id number] [place] [address]- 6793 18 May, 2013 [facility] [place] [facility] [address] [facility] [id number] [place] [address]- 6560 17 May, 2013 [facility] [place] [facility] [address] [facility] [id number] [place] [address]- 2546 May, [facility] [place] [facility] [address] [id number] [place] [address]- 9083 May, [facility] [place] [facility] [address] [facility] [id number] [place] [address]- 6106 10 May, 2013 [facility] [place] [facility] [address] [facility] [id number] [place] [address]- 4227 07 May, 2013 [facility] [address] [id number] [place] [address]- 3892 07 May, 2013 [facility] [address] [id number] [place] [address]- 7240 17 Apr, 2013 [facility] [address] [id number] [place] [address]- 0795 Apr, [facility] [address] [id number] [place] [address]- 1140 Apr, [facility] [address] [id number] [place] [address]- 6171 Apr, [facility] [address] [id number] [place] [address]- 8514 Apr, [facility] [address] [id number] [place] [address]- 1981 Apr, [facility] [address] [id number] [place] [address]- 8630 Apr, [facility] [address] [id number] [place] [address]- 5179 Mar, [facility] [address] [id number] [place] [address]- 9781 Mar, [facility] [address] [id number] [place] [address]- 6986 Mar, [facility] [address] [id number] [place] [address]- 2071 Mar, [facility] [address] [id number] [place] [address]- 4868 Mar, [facility] [address] [id number] [place] [address]- 0676 Mar, [facility] [address] [id number] [place] [address]- 8489 Mar, [facility] [place] [facility] [address] [id number] [place] [address]- 4077 Mar, [facility] [place] [facility] [address] [id number] [place] [address]- 5407 Mar, [facility] [place] [facility] [address] [id number] [place] [address]- 9868 Mar, [facility] [place] [facility] [address] [id number] [place] [address]- 2565 Mar, [facility] [address] [id number] [place] [address]- 1806 Feb, [facility] [place] [facility] [address] [id number] [place] [address]- 5243 Feb, [facility] [address] [id number] [place] [address]- 5672 Feb, [facility] [address] [id number] [place] [address]- 3984 20 Feb, 2013 [facility] [place] [facility] [address] [id number] [place] [address]- 0172 Feb, [facility] [place] [facility] [address] [id number] [place] [address]- 1459 19 Feb, 2013 [facility] [place] [facility] [address] [id number] [place] [address]- 2879 15 Feb, 2013 [facility] [place] [facility] [address] [id number], [place] [address]- 6348 14 Feb, 2013 [facility] [place] [facility] [address] [id number] [place] [address]- 2223 14 Feb, 2013 [facility] [place] [facility] [address] [id number], [place] [address]- 9914 13 Feb, 2013 [facility] [place] [facility] [address] [id number], [place] [address]- 8839 13 Feb, 2013 [facility] [place] [facility] [address] [id number], [place] [address]- 8121 Feb, [facility] [place] [facility] [address] [id number] [place] [address]- 1702 Feb, [facility] [place] [facility] [address] [id number] [place] [address]- 0464 Feb, [facility] [place] [facility] [address] [id number] [place] [address]- 6065 Feb, [facility] [place] [facility] [address] [id number] [place] [address]- 8643 Feb, [facility] [place] [facility] [address] [id number] [place] [address]- 7874 Jan, [facility] [place] [facility] [address] [id number] [place] [address]- 9383 Jan, [facility] [place] [facility] [address] [id number] [place] [address]- 4155 Jan, [facility] [place] [facility] [address] [id number] [place] [address]- 7882 Jan, [facility] [place] [facility] [address] [id number] [place] [address]- 3263 Jan, [facility] [place] [facility] [address] [id number] [place] [address]- 5286 Jan, [facility] [place] [facility] [address] [id number], [place] [address]- 0070 Jan, [facility] [place] [facility] [address] [id number], [place] [address]- 8194 Jan, [facility] [place] [facility] [address] [id number] [place] [address]- 7307 10 Jan, 2013 [facility] [place] [facility] [address] [id number] [place] [address]- 8046 27 Dec, 2012 [facility] [place] [facility] [address] [id number] [place] [address]- 3800 20 Dec, 2012 [facility] [place] [facility] [address] [id number] [place] [address]- 1002 19 Dec, 2012 [facility] [place] [facility] [address] [id number] [place] [address]- 0308 10 Dec, 2012 [facility] [place] [facility] [address] [id number] [place] [address]- 1866 04 Dec, 2012 [facility] [place] [facility] [address] [id number] [place] [address]- 5056 03 Dec, 2012 [facility] [place] [facility] [address] [id number] [place] [address]- 4005 Nov, [facility] [place] [facility] [address] [id number] [place] [address]- 5085 Nov, [facility] [place] [facility] [address] [id number] [place] [address]- 8752 Nov, [facility] [place] [facility] [address] [id number] [place] [address]- 0516 Nov, [facility] [place] [facility] [address] [id number] [place] [address]- 0381 Nov, [facility] [place] [facility] [address] [id number] [place] [address]- 0786 Nov, [facility] [place] [facility] [address] [id number] [place] [address]- 5646 Nov, [facility] [place] [facility] [address] [id number] [place] [address]- 3619 Nov, [facility] [place] [facility] [address] [id number] [place] [address]- 2545 14 Nov, 2012 [facility] [place] [facility] [address] [id number] [place] [address]- 6256 Nov, [facility] [place] [facility] [address] [id number] [place] [address]- 2546 Oct, [facility] [place] [facility] [address] [id number] [place] [address]- 2945 Oct, [facility] [place] [facility] [address] [id number] [place] [address]- 4632 Oct, [facility] [place] [facility] [address] [id number] [place] [address]- 2901 Oct, [facility] [place] [facility] [address] [id number] [place] [address]- 9155 Oct, [facility] [place] [facility] [address] [id number] [place] [address]- 5044 Oct, [facility] [place] [facility] [address] [id number] [place] [address]- 8659 Oct, [facility] [place] [facility] [address] [id number] [place] [address]- 5846 Oct, [facility] [place] [facility] [address] [id number] [place] [address]- 0831 Sep, [facility] [place] [facility] [address] [id number] [place] [address]- 5007 Sep, [facility] [place] [facility] [address] [id number] [place] [address]- 0700 Sep, [facility] [place] [facility] [address] [id number] [place] [address]- 5252 Sep, [facility] [place] [facility] [address] [id number] [place] [address]- 2210 Sep, [facility] [place] [facility] [address] [id number], [place] [address]- 3858 Sep, [facility] [place] [facility] [address] [id number] [place] [address]- 5218 Sep, [facility] [place] [facility] [address] [id number] [place] [address]- 9941 Sep, [facility] [place] [facility] [address] [id number] [place] [address]- 8802 August, [facility] [place] [facility] [address] [id number] [place] [address]- 8713 August, [facility] [address] [id number] [place] [address]- 3582 August, [facility] [address] [id number] [place] [address]- 7835 August, [facility] [address] [id number] [place] [address]- 4179 August, [facility] [address] [id number] [place] [address]- 8794 Jul, [facility] [address] [id number] [place] [address]- 8801 Jul, [facility] [address] [id number] [place] [address] Jul, [facility] [address] [id number] [place] [address] Jul, [facility] [address] [id number] [place] [address] Jul, [facility] [address] [id number] [place] [address] 18 Jun, 2012 [facility] [address] [id number] [place] [address] 18 Jun, 2012 [facility] [address] [id number] [place] [address] 15 Jun, 2012 [facility] [address] [id number] [place] [address] 14 Jun, 2012 [facility] [place] [facility] [address] [id number] [place] [address] 12 Jun, 2012 [facility] [place] [facility] [address] [id number] [place] [address] 08 Jun, 2012 [facility] [address] [id number] [place] [address] 08 Jun, 2012 [facility] [address] [id number] [place] [address] Jun, [facility] [address] [id number] [place] [address] Jun, [facility] [address] [id number] [place] [address] May, [facility] [address] [id number] [place] [address] May, [facility] [address] [id number] [place] [address] May, [facility] [address] [id number] [place] [address] May, [facility] [address] [id number] [place] [address] Apr, [facility] [address] [id number] [place] [address] Apr, [facility] [address] [id number] [place] [address] Apr, [facility] [address] [id number] [place] [address] Apr, [facility] [address] [id number] [place] [address] Apr, [facility] [address] [id number] [place] [address] Apr, [facility] [address] [id number] [place] [address] Apr, [facility] [address] [id number] [place] [address] Mar, [facility] [address] [place] [id number] Mar, [facility] [address] [id number] [place] [address] Mar, [facility] [place] [facility] [address] [id number] [place] [address] Mar, [facility] [place] [facility] [address] [id number] [place] [address] Mar, [facility] [place] [facility] [address] [id number] [place] [address] Mar, [facility] [place] [facility] [address] [id number] [place] [address] Mar, [facility] [place] [facility] [address] [id number] [place] [address] Mar, [facility] [place] [facility] [address] [id number] [place] [address] Mar, [facility] [place] [facility] [address] [id number] [place] [address] Mar, [facility] [place] [facility] [address] [id number] [place] [address] Mar, [facility] [place] [facility] [address] [id number] [place] [address] Mar, [facility] [place] [facility] [address] [id number] [place] [address] Mar, [facility] [place] [facility] [address] [id number] [place] [address] Mar, [facility] [place] [facility] [address] [id number], [place] [address] Mar, [facility] [place] [facility] [address] [id number] [place] [address] Mar, [facility] [place] [facility] [address] [id number] [place] [address] Mar, [facility] [place] [facility] [address] [id number] [place] [address] Feb, [facility] [place] [facility] [address] [id number] [place] [address] Feb, [facility] [place] [facility] [address] [id number] [place] [address] Feb, [facility] [place] [facility] [address] [id number] [place] [address] Feb, [facility] [place] [facility] [address] [id number] [place] [address] Feb, [facility] [place] [facility] [address] [id number] [place] [address] Feb, [facility] [place] [facility] [address] [id number] [place] [address] Feb, [facility] [place] [facility] [address] [id number] [place] [address] Feb, [facility] [place] [facility] [address] [id number] [place] [address] Feb, [facility] [place] [facility] [address] [id number] [place] [address] 96[address] Feb, [facility] [place] [facility] [address] [id number] [place] [address] Feb, [facility] [place] [facility] [address] [id number] [place] [address] 79[address] Feb, [facility] [place] [facility] [address] [id number] [place] [address] Feb, [facility] [place] [facility] [address] [id number], [place] [address] Feb, [facility] [place] [facility] [address] [id number] [place] [address]- [address] Feb, [facility] [place] [facility] [address] [id number] [place] [address] Feb, [facility] [place] [facility] [address] [id number], [place] [address] Jan, [facility] [place] [facility] [address] [id number] [place] [address] Jan, [facility] [place] [facility] [address] [id number] [place] [address] Jan, [facility] [place] [facility] [address] [id number] [place] [address] Jan, [facility] [place] [facility] [address] [id number] [place] [address]- [address] Jan, [facility] [place] [facility] [address] [id number] [place] [address]- [address] Jan, [facility] [place] [facility] [address] [id number] [place] [address]- 9[address] Jan, [facility] [place] [facility] [address] [id number] [place] [address]- 6[address] Jan, [facility] [place] [facility] [address] [id number] [place] [address]- [address] Jan, [facility] [place] [facility] [address] [id number] [place] [address]- 8865 Jan, [facility] [place] [facility] [address] [id number] [place] [address]- [address] Jan, [facility] [place] [facility] [address] [id number] [place] [address] Jan, [facility] [place] [facility] [address] [id number], [place] [address] Jan, [facility] [place] [facility] [address] [id number] [place] [address] Jan, [facility] [place] [facility] [address] [id number] [place] [address] 84[address] Jan, [facility] [place] [facility] [address] [id number] [place] [address] 12[address] Jan, [facility] [place] [facility] [address] [id number], [place] [address] 04 Jan, 2012 [facility] [place] [facility] [address] [id number] [place] [address] 21 Dec, 2011 [facility] [place] [facility] [address] [id number] [place] [address] 60[address] 20 Dec, 2011 [facility] [place] [facility] [address] [id number] [place] [address] 2546 18 Dec, 2011 [facility] [place] [facility] [address] [id number] [place] [address] 2546 18 Dec, 2011 [facility] [place] [facility] [address] [id number] [place] [address] 2546 10 Dec, 2011 [facility] [place] [facility] [address] [id number] [place] [address] 10 Dec, 2011 [facility] [place] [facility] [address] [id number] [place] [address] 4760 10 Dec, 2011 [facility] [place] [facility] [address] [id number] [place] [address] 7[address] 07 Dec, 2011 [facility] [place] [facility] [address] [id number] [place] [address] 1530 30 Nov, 2011 [facility] [place] [facility] [address] [id number] [place] [address] Nov, [facility] [place] [facility] [address] [id number] [place] [address] 1768 Nov, [facility] [place] [facility] [address] [id number] [place] [address] 2548 Nov, [facility] [place] [facility] [address] [id number] [place] [address] 2546 Nov, [facility] [place] [facility] [address] [id number] [place] [address] Nov, [facility] [place] [facility] [address] [id number] [place] [address] 2542 30 Oct, 2011 [facility] [place] [facility] [address] [id number] [place] [address] 7602 30 Oct, 2011 [facility] [address] [id number] [place] [address]99 Oct, [facility] [place] [facility] [address] [id number] [place] [address] Oct, [facility] [address] [id number] [place] [address] 52[address] Oct, [facility] [place] [facility] [address] [id number] [place] [address]78 Oct, [facility] [address] [id number] [place] [address] 3319 Oct, [facility] [place] [facility] [address] [id number] [place] [address] 1431 Sep, [facility] [place] [facility] [address] [id number] [place] [address] 7032 Sep, [facility] [place] [facility] [address] [id number] [place] [address] 6159 Sep, [facility] [place] [facility] [address] [id number] [place] [address] 67[address] Sep, [facility] [address] [id number] [place] [address] 5517 Sep, [facility] [place] [facility] [address] [id number] [place] [address]- 254 15 Sep, 2011 [facility] [place] [facility] [address] [id number] [place] [address] 6408 14 Sep, 2011 [facility] [place] [facility] [address] [id number] [place] [address] 4845 11 Sep, 2011 [facility] [place] [facility] [address] [id number] [place] [address] 9255 05 Sep, 2011 [facility] [place] [facility] [address] [id number] [place] [address] 2061 Sep, [facility] [address] [id number] [place] [address] 96[address] August, [facility] [place] [facility] [address] [id number] [place] [address] 6776 August, [facility] [place] [facility] [address] [id number] [place] [address] 2142 August, [facility] [place] [facility] [address] [id number] [place] [address] 6836 August, [facility] [address] [id number] [place] [address] 3202 August, [facility] [place] [facility] [address] [id number] [place] [address] 3358 Jul, [facility] [place] [facility] [address] [id number] [place] [address] 9376 Jul, [facility] [address] [id number] [place] [address] 4039 Jul, [facility] [place] [facility] [address] [id number] [place] [address] 3028 Jul, [facility] [place] [facility] [address] [id number] [place] [address] 09[address] Jul, [facility] [place] [facility] [address] [id number] [place] [address] 3636 Jul, [facility] [place] [facility] [address] [id number], [place] [address] Jul, [facility] [place] [facility] [address] [id number] [place] [address]- 7282 Jun, [facility] [place] [facility] [address] [id number] [place] [address]- 7056 Jun, [facility] [place] [facility] [address] [id number] [place] [address]- 7525 Jun, [facility] [place] [facility] [address] [id number], [place] [address] Jun, [facility] [place] [facility] [address] [id number] [place] [address] 2810 Jun, [facility] [place] [facility] [address] [id number] [place] [address]- 0936 May, [facility] [place] [facility] [address] [id number] [place] [address]- 0756 May, [facility] [place] [facility] [address] [id number] [place] [address] 7137 May, [facility] [place] [facility] [address] [id number] [place] [address]- 0777 May, [facility] [place] [facility] [address] [id number] [place] [address]- 9374 May, [facility] [place] [facility] [address] [facility] [id number] [place] [address]109 May, [facility] [place] [facility] [address] [id number] [place] [address]- 5125 Apr, [facility] [place] [facility] [address] [facility] [id number] [place] [address]- 2427 Mar, [facility] [place] [facility] [address] [facility] [id number] [place] [address]- 3949 Feb, [facility] [place] [facility] [address] [id number] [place] [address] 2543 Feb, [facility] [place] [facility] [address] [id number] [place] [address]- 2541 Feb, [facility] [place] [facility] [address] [id number] [place] [address]- 5418 Feb, [facility] [place] [facility] [address] [facility] [id number] [place] [address]- 6496 Jan, [facility] [place] [facility] [address] [id number] [place] [address]- 0911 Jan, [facility] [place] [facility] [address] [id number] [place] [address]- 7350 26 Jan, 2011 [facility] [address] [id number] [place] [address] 24 Jan, 2011 [facility] [address] [id number] [place] [address]- 9246 14 Jan, 2011 [facility] [address] [id number] [place] [address]- 3161 19 Dec, 2010 [facility] [address] [id number] [place] [address]- 1738 Oct, [facility] [address] [id number] [place] [address]- 0549 August, [facility] [address] [id number] [place] [address]- 7904 29 Mar, 2010 [facility] [address] [id number] [place] [address]- 8531 27 Mar, 2010 [facility] [address] [id number] [place] [address]- 0268 16 Mar, 2010 [facility] [address] [id number] [place] [address]- 8380 15 Mar, 2010 [facility] [address] [id number] [place] [address]- 3631 15 Mar, 2010 [facility] [place] [facility] [address] [id number] [place] [address]- 3382 08 Mar, 2010 [facility] [place] [facility] [address] [id number] [place] [address]- 2901 03 Mar, 2010 [facility] [place] [facility] [address] [id number] [place] [address]- 4462 24 Feb, 2010 [facility] [place] [facility] [address] [id number] [place] [address]- 8147 24 Feb, 2010 [facility] [place] [facility] [address] [id number], [place] [address]- 3770 15 Feb, 2010 [facility] [place] [facility] [address] [id number] [place] [address]- 4505 19 Jan, 2010 [facility] [place] [facility] [address] [id number], [place] [address]- 0348 Jan, [facility] [place] [facility] [address] [id number] [place] [address]- 4416 Jan, [facility] [place] [facility] [address] [id number], [place] [address]- 7984 Nov, [facility] [place] [facility] [address] [id number] [place] [address]- 6940 Sep, [facility] [place] [facility] [address] [id number], [place] [address]- 4[address] August, [facility] [place] [facility] [address] [id number], [place] [address]- 7889 30 Mar, 2009 [facility] [place] [facility] [address] [id number], [place] [address]- 5315 Mar, [facility] [place] [facility] [address] [id number], [place] [address]- [address] 17 Feb, 2009 [facility] [place] [facility] [address] [id number], [place] [address]- 8226 Feb, [facility] [place] [facility] [address] [id number], [place] [address]- 7115 10 Feb, 2009 [facility] [place] [facility] [address] [id number], [place] [address]- 2169 10 Feb, 2009 [facility] [place] [facility] [address] [id number], [place] [address]- 4824 06 Feb, 2009 [facility] [place] [facility] [address] [id number], [place] [address]- 5716 27 Jan, 2009 [facility] [place] [facility] [address] [id number], [place] [address]- 0115 Jan, [facility] [place] [facility] [address] [id number], [place] [address]- 2588 Jan, [facility] [address] [id number], [place] [address] 5847 Jan, [facility] [id number], [place] [address]- 8047 Nov, [facility] [id number], [place] [address]- 2535 Sep, [facility] [id number], [place] [address]- 2596 August, [facility] [id number] [place] [address]- 6967 Jul, [facility] [id number], [place] [address]- 68[address] May, IMMUNIZATIONS No Known Immunizations SOCIAL HISTORY [...] Knee Surgery 07/16/17 Hospitalization History [facility] [place]- left hand/wrist swelling 10/09/2017
--- OUTSIDE RECORDS SUMMARY | 2018-01-01 12:27 | XMS REPORT ---
Author Author SENAIT DUNLAP [facility] Address [address] [place] [address] Care Team Providers Care Lyft Driver Name Role Phone SENAIT DUNLAP Unavailable PROBLEMS Type Condition ICD9-CM Code OUG64-MO Code Onset Dates Condition Status SNOMED Code Problem History of common bile duct surgery Z98.89 Active 067567303 Problem Barretts esophagus K22.70 Active 485168364 Problem 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 Active 71747293 Problem Colon polyp K63.5 Active 21270939 Problem Bilateral low back pain without sciatica M54.5 Active 027715030 Problem Screening breast examination Z12.39 Active 017276165 Problem Postmenopausal Z78.0 Active 92778885 Problem Osteopenia M85.80 Active 153414134 Problem Cigarette nicotine dependence without complication F17.210 Active 37336105 Problem Type 2 diabetes mellitus with diabetic peripheral angiopathy without gangrene E11.51 Active 410075669 Problem Vascular dementia without behavioral disturbance F01.50 Active [id number] Problem Unspecified atherosclerosis of sun'aq arteries of extremities, unspecified extremity I70.209 Active 515020489130714 Problem Arthritis M19.90 Active 7016970 Problem Chronic atrial fibrillation I48.2 Active 671083582 Problem Chronic obstructive pulmonary disease with acute lower respiratory infection J44.0 Active 481341756 Problem Other chronic pancreatitis K86.1 Active 986815664 Problem Stress incontinence of urine N39.3 Active 29640034 Problem Controlled type 2 diabetes mellitus without complication, without long -term current use of insulin E11.9 Active 269978786 Problem Unspecified psychosis F29 Active 60437886 Problem Xeroderma Q80.9 Active 58897582 Problem COPD (chronic obstructive pulmonary disease) J44.9 Active 99439938 Problem Dementia without behavioral disturbance, unspecified dementia type F03.90 Active 05559253 Problem Gastroparesis K31.84 Active 701133886 Problem Type 2 diabetes mellitus with diabetic neuropathy, without long-term current use of insulin E11.40 Active 82042121 Problem Osteoporosis M81.0 Active 37556232 Problem Atherosclerosis of sun'aq artery of both lower extremities with intermittent claudication I70.213 Active 779299101193832 Problem Hyperlipidemia E78.5 Active 30848478 Problem Diabetic polyneuropathy associated with type 2 diabetes mellitus E11.42 Active 30039749 Problem Essential tremor G25.0 Active 58034740 Problem 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.118 Active 6221028045667 Problem Generalized anxiety disorder F41.1 Active 551891584 Problem Gastroesophageal reflux disease, esophagitis presence not specified K21.9 Active 834205354 Problem Coronary artery disease involving sun'aq coronary artery of sun'aq 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 I25.118 Active 7563325822782 Problem Postconcussion syndrome F07.81 Active 51797168 Problem Chronic pain syndrome G89.4 Active 616711408 Problem Migraine without aura and without status migrainosus, not intractable G43.009 Active 909554289 Problem Paroxysmal atrial fibrillation I48.0 Active 499683592 Problem Migraine without aura and with status migrainosus, not intractable G43.001 Active 264467328 Problem Cervicalgia M54.2 Active 5953732859295 Problem Acute exacerbation of chronic obstructive pulmonary disease (COPD) J44.1 Active 834617724 Problem Major depressive disorder, recurrent episode, moderate F33.1 Active 808651599 Problem Crohn''s disease without complication, unspecified gastrointestinal tract location K50.90 Active 05798518 Problem Chronic fatigue R53.82 Active 65682081 Problem Bipolar affective disorder, currently depressed, moderate F31.32 Active 351548041 ALLERGIES No Information ENCOUNTERS Encounter Location Date Diagnosis [facility] [address] [facility] [id number] [address] Nov, [facility] [address], [place] [address] Nov, [facility] [address] [place] [id number] [address] Oct, Bipolar affective disorder, currently depressed, moderate F31.32 ; Vascular dementia without behavioral disturbance F01.50 and Generalized anxiety disorder F41.1 [place] [address] [address] Oct, [facility] [address] [address] Oct, [facility] [address] [address] Oct, Edema of both legs R60.0 [facility] [id number] [place] [address] 17839- 7176 Oct, [facility] [address] [address] Sep, [facility] [id number] [place] [address] 99439- 1555 Sep, [facility] [id number] [address] Sep, [facility] [id number] [address] Sep, Encounter for well woman exam with routine gynecological exam Z01.419 ; Screening for STDs (sexually transmitted diseases) Z11.3 ; Screening breast examination Z12.31 and Overweight (BMI 25.0-29.9) E66.3 [facility] [address] [address] Sep, [facility] [address], [place] [address] 9[address] Sep, [facility] [address] [address] 6950 Sep, [facility] [address], [place] [address] 89[address] August, [facility] [address], [place] [address] August, [facility] [address], [place] [address] August, Type 2 diabetes mellitus with diabetic neuropathy, without long-term current use of insulin E11.40 and Sprain of right ankle, unspecified ligament, initial encounter S93.401A [place] [id number] [place] [address] 74883- 5781 August, [facility] [id number] [place] [address] 05229- 4635 August, [facility] [address] 11754- 4418 August, [facility] [id number] [place] [address] 78468- 2681 August, Gastroesophageal reflux disease, esophagitis presence not specified K21.9 [place] [address] 72570- 0528 August, [place] [id number] [place] [address] 94955- 7664 August, [place] [id number] [place] [address] 64963- 7069 August, [facility] [id number] [place] [address] 42662- 7834 August, Type 2 diabetes mellitus with diabetic neuropathy, without long-term current use of insulin E11.40 and Elevated liver enzymes R74.8 [place] [id number] [place] [address] 03619- 9227 Jul, [place] [id number] [place] [address] 37273- 2145 Jul, Cough R05 [place] [id number] [place] [address] 97705- 4455 Jul, [place] [id number] [place] [address] 95207- 6153 Jul, [facility] [id number] [place] [address] 37877- 2247 Jul, Bipolar affective disorder, currently depressed, moderate F31.32 ; Vascular dementia without behavioral disturbance F01.50 and Generalized anxiety disorder F41.1 [facility] [id number] [place] [address] 90421- 5791 24 Jul, 2017 [facility] [id number] [place] [address] 79100- 5038 Jul, Type 2 diabetes mellitus with diabetic neuropathy, without long-term current use of insulin E11.40 and Elevated liver enzymes R74.8 [facility] [id number] [place] [address] 97937- 4054 Jul, [facility] [id number] [place] [address] 28802- 8774 Jul, [facility] [id number] [place] [address] 61115- 4632 Jul, [facility] [id number] [place] [address] 08791- 3658 Jul, Post-menopausal Z78.0 [facility] [id number] [place] [address] 67619- 9829 Jul, Stress incontinence of urine N39.3 [facility] [id number] [place] [address] 23704- 4091 Jul, [facility] [id number] [place] [address] 38962- 2972 Jul, [facility] [id number] [place] [address] 21010- 2541 Jul, Stress incontinence of urine N39.3 and Cough R05 [facility] [id number] [place] [address] 19665- 5417 Jul, [facility] [id number] [place] [address] 32853- 8149 Jul, [facility] [id number] [place] [address] 25956- 2626 Jul, [facility] [address] [place] [address] 38250- 8032 Jul, Gastroesophageal reflux disease, esophagitis presence not specified K21.9 [facility] [id number] [place] [address] Jun, Diabetic polyneuropathy associated with type 2 diabetes mellitus E11.42 [facility] [id number] [place] [address] 46635- 8985 Jun, Diabetic polyneuropathy associated with type 2 diabetes mellitus E11.42 ; Coronary artery disease involving sun'aq coronary artery of sun'aq 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 I25.118 and Paroxysmal atrial fibrillation I48.0 [place] [id number] [place] [address] 32674- 3902 Jun, [place] [id number] [place] [address] 10590- 4265 Jun, [place] [id number] [place] [address] 62977- 2122 Jun, Gastroenteritis K52.9 [facility] [id number] [place] [address] 56436- 4853 Jun, Gastroenteritis K52.9 [facility] [id number] [place] [address] 19148- 9784 Jun, [place] [address] [place] [address] 27194- 9703 Jun, [place] [id number] [place] [address] 05841- 6920 Jun, Sprain of right ankle, unspecified ligament, initial encounter S93.401A ; Type 2 diabetes mellitus with diabetic neuropathy, without long-term current use of insulin E11.40 ; Atherosclerosis of sun'aq artery of both lower extremities with intermittent claudication I70.213 ; 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.118 ; Chronic atrial fibrillation I48.2 and Crohn''s disease without complication, unspecified gastrointestinal tract location K50.90 [facility] [id number] [place] [address] 67355 -1043 17 Jun, 2017 Cough R05 and Chronic obstructive pulmonary disease with acute lower respiratory infection J44.0 [facility] [id number] [place] [address] 96755- 7848 16 Jun, 2017 [facility] [id number] [place] [address] 51246- 9590 15 Jun, 2017 Coughing R05 ; Unspecified atherosclerosis of sun'aq arteries of extremities, unspecified extremity I70.209 ; Type 2 diabetes mellitus with diabetic peripheral angiopathy without gangrene E11.51 ; Crohn''s disease without complication, unspecified gastrointestinal tract location K50.90 ; Other chronic pancreatitis K86.1 and Chronic atrial fibrillation I48.2 [facility] [address] [place] [address] 40000 -4746 Jun, [facility] [id number] [place] [address] 14410- 6924 Jun, Bipolar affective disorder, currently depressed, moderate F31.32 ; Vascular dementia without behavioral disturbance F01.50 and Generalized anxiety disorder F41.1 [place] [id number] [place] [address] 34379- 0414 May, Generalized anxiety disorder F41.1 [facility] [id number] [place] [address] 67921- 6658 May, [facility] [id number] [place] [address] 14305- 4331 May, [facility] [address] [place] [address] 40936- 5912 15 May, 2017 Coughing R05 [facility] [id number] [place] [address] 94147- 9515 09 May, 2017 [facility] [id number] [place] [address] 99127- 9344 May, Bipolar affective disorder, currently depressed, moderate F31.32 ; Vascular dementia without behavioral disturbance F01.50 and Generalized anxiety disorder F41.1 [facility] [id number] [place] [address] 78208- 9284 Apr, Generalized anxiety disorder F41.1 [facility] [id number] [place] [address] 37394- 7984 Apr, [place] [address] 52585- 5005 Apr, Vascular dementia without behavioral disturbance F01.50 ; Generalized anxiety disorder F41.1 and Bipolar affective disorder, currently depressed, moderate F31.32 [place] [address] 82402- 5373 Apr, Generalized anxiety disorder F41.1 [facility] [address] 59018 -6241 Apr, Cough R05 and Acute exacerbation of chronic obstructive pulmonary disease (COPD) J44.1 [place] [address] 54654- 8363 Apr, [facility] [id number] [place] [address] 99866 -9506 Mar, Cough R05 and Cigarette nicotine dependence without complication F17.210 [place] [id number] [place] [address] 15880- 8530 Mar, [place] [address] 79488- 9758 Feb, Generalized anxiety disorder F41.1 ; Major depressive disorder, recurrent episode, moderate F33.1 ; Vascular dementia without behavioral disturbance F01.50 and Unspecified psychosis F29 [place] [id number] [place] [address] 59776- 8360 Feb, [place] [id number] [place] [address] 90181- 0526 Feb, [place] [address] 84424- 0971 Feb, Generalized anxiety disorder F41.1 [place] [id number] [place] [address] 13867- 9939 Feb, Generalized anxiety disorder F41.1 [place] [id number] [place] [address] 99964- 5053 Feb, Dizziness R42 ; Chronic fatigue R53.82 ; Postconcussion syndrome F07.81 ; Fall, initial encounter W19.XXXA and Disorientation R41.0 [place] [id number] [place] [address] 54372- 1685 Feb, Postconcussion syndrome F07.81 ; Injury of head, initial encounter S09.90XA ; Fall, initial encounter W19.XXXA ; Disorientation R41.0 and Acute cystitis with hematuria N30.01 [place] [id number] [place] [address] 44167- 4524 Jan, Gastroesophageal reflux disease, esophagitis presence not specified K21.9 ; Post-menopausal Z78.0 and Migraine without aura and without status migrainosus, not intractable G43.009 [place] [id number] [place] [address] 51046- 0455 Jan, [place] [id number] [place] [address] 92337- 6774 Jan, Generalized anxiety disorder F41.1 ; Major depressive disorder, recurrent episode, moderate F33.1 ; Vascular dementia without behavioral disturbance F01.50 and Unspecified psychosis F29 [place] [address] [place] [address] 82638- 0335 Jan, Pneumonia of left lower lobe due to infectious organism J18.1 [place] [address] [id number] [place] [address] 61110- 2580 Jan, Migraine without aura and with status migrainosus, not intractable G43.001 [facility] [id number] [place] [address] 55338 -1244 Jan, Migraine without aura and without status migrainosus, not intractable G43.009 [facility] [id number] [place] [address] 81745- 3169 Dec, Hematoma T14.8 [facility] [id number] [place] [address] 15446- 7346 Dec, [facility] [id number] [place] [address] 54071 -4827 Nov, Fatigue, unspecified type R53.83 [facility] [id number] [place] [address] 95636- 1735 Nov, Scabies B86 and Coronary artery disease involving sun'aq coronary artery of sun'aq 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 I25.118 [facility] [id number] [place] [address] 13331- 6737 Nov, [facility] [id number] [place] [address] 89632- 8381 Nov, [facility] [id number] [place] [address] 29462- 8048 Oct, [facility] [id number] [place] [address] 99337- 5427 Oct, Generalized anxiety disorder F41.1 and Major depressive disorder, recurrent episode, moderate F33.1 [facility] [address] [place] [address] 93137- 7638 Oct, Cramp of both lower extremities R25.2 [facility] [id number] [place] [address] 06716- 1105 Oct, Leg cramps R25.2 [facility] [id number] [place] [address] 62898- 0240 Oct, Chronic pain syndrome G89.4 [facility] [id number] [place] [address] 44829- 4422 Oct, [facility] [address] [address]- 4750 14 Oct, 2016 [facility] [address] [place] [address] 60797- 2188 11 Oct, 2016 Routine gynecological examination Z01.419 and Screening for breast cancer Z12.31 [place] [address] [place] [address] 59960- 2338 28 Sep, 2016 Diarrhea R19.7 [place] [id number] [place] [address] 78403- 5298 26 Sep, 2016 Back pain M54.9 [place] [id number] [place] [address] 74321- 4283 Sep, [place] [id number] [place] [address] 27173- 0374 Sep, [facility] [place] [id number] [place] [address] 32877 -4795 August, Xeroderma Q80.9 [place] [id number] [place] [address] 49462- 9058 August, Dementia without behavioral disturbance, unspecified dementia type F03.90 [place] [id number] [place] [address] 71781- 8169 August, Chronic pain syndrome G89.4 [place] [id number] [place] [address] 66818- 0463 August, [place] [address] [id number] [place] [address] 63525- 2938 August, Hyperlipidemia E78.5 ; Other fatigue R53.83 and Other specified hypotension I95.89 [facility] [id number] [place] [address] 27899 -5643 August, Dysuria R30.0 ; Other fatigue R53.83 and Other specified hypotension I95.89 [place] [id number] [place] [address] 69205- 0650 August, [place] [id number] [place] [address] 02593- 1338 Jul, Pain in left knee M25.562 and Gastroenteritis K52.9 [place] [address] 92193- 9799 Jul, [place] [address] 01353- 7499 Jul, Diarrhea R19.7 [facility] [address] 15640 -7548 Jul, Spider bite, accidental or unintentional, initial encounter T63.301A [place] [address] 15778- 8256 Jul, Primary osteoarthritis of right knee M17.11 and Arthritis M19.90 [place] [address] 90375- 9512 Jul, Generalized anxiety disorder F41.1 and Major depressive disorder, recurrent episode, moderate F33.1 [place] [address] 39685- 8954 Jul, Type 2 diabetes mellitus with diabetic polyneuropathy E11.42 and Temporal headache R51 [place] [id number] [place] [address] 29412- 5343 Jul, Back pain M54.9 [place] [address] 91964- 4479 Jul, [place] [id number] [place] [address] 46659- 9946 Jul, [place] [address] 09176- 0731 Jun, Nausea R11.0 [facility] [id number] [place] [address] 96227 -1803 Jun, Acute suppurative otitis media of both ears without spontaneous rupture of tympanic membranes, recurrence not specified H66.003 and COPD exacerbation J44.1 [place] [address] [place] [place] [id number] [place] [address] 79962- 7719 Jun, Generalized anxiety disorder F41.1 [place] [address] [place] [id number] [place] [address] 00717- 8687 16 Jun, 2016 [facility] [address] 28558 -8174 Jun, [facility] [address] 24780 -4404 Jun, Shortness of breath R06.02 and COPD exacerbation J44.1 [place] [address] 62907- 1842 10 Jun, 2016 Eczema, unspecified type L30.9 [place] [address] 83587- 0750 Jun, [place] [address] 23928- 1313 May, [place] [address] 44400- 5543 May, Muscle cramping R25.2 [place] [id number] [place] [address] 14150- 6879 May, [place] [address] 07623- 1403 Apr, Diarrhea R19.7 [place] [id number] [place] [address] 44682- 3259 Apr, [place] [address] 11344- 2238 Apr, Chronic pain syndrome G89.4 [place] [id number] [place] [address] 18859- 2075 Apr, Cramp of both lower extremities R25.2 and Vascular dementia without behavioral disturbance F01.50 [place] [address] 33209- 2283 Apr, Type 2 diabetes mellitus with diabetic polyneuropathy E11.42 and Cigarette nicotine dependence without complication F17.210 [place] [address] 80512- 0591 Mar, Generalized anxiety disorder F41.1 [place] [address] 44355- 1197 Feb, Generalized anxiety disorder F41.1 and Major depressive disorder, recurrent episode, moderate F33.1 [place] [address] 76845- 9947 Feb, [facility] [address] 94331 -3861 Feb, Dysuria R30.0 and Acute cystitis with hematuria N30.01 [place] [address] 40793- 7731 Jan, [place] [address] 35114- 9830 Jan, [place] [address] 57103- 8611 Jan, [place] [address] 75598- 3852 Jan, [facility] [address] 53885 -4149 Jan, Wasp sting, accidental or unintentional, initial encounter T63.461A [place] [address] 38210- 6873 06 Jan, 2016 Encounter for immunization Z23 [place] [address] 45899- 4172 Jan, [place] [address] 01658- 2589 Jan, [facility] [address] [place] [place] [address] 84619- 6116 28 Dec, 2015 Generalized anxiety disorder F41.1 and Major depressive disorder, recurrent episode, moderate F33.1 [facility] [id number] [address] 0923 21 Dec, 2015 Routine gynecological examination Z01.419 ; Postmenopausal Z78.0 ; Screening breast examination Z12.39 ; Osteopenia M85.80 and Breast cancer screening Z12.39 [facility] [id number] [place] [address] 77924- 3522 20 Dec, 2015 [facility] [id number] [place] [address] 81013- 6219 19 Dec, 2015 [facility] [id number] [place] [address] 52062- 1143 16 Dec, 2015 [facility] [id number] [place] [address] 43891- 4927 16 Dec, 2015 [facility] [id number] [place] [address] 86642- 0390 14 Dec, 2015 [facility] [id number] [place] [address] 62268- 3857 06 Dec, 2015 [facility] [id number] [place] [address] 65628- 8119 Nov, [facility] [id number] [place] [address] 99263 -2791 Nov, Cough R05 ; Other viral agents as the cause of diseases classified elsewhere B97.89 and Acute upper respiratory infection, unspecified J06.9 [facility] [id number] [place] [address] 15059- 3323 Nov, [facility] [id number] [place] [address] 54993- 8156 Nov, [facility] [id number] [place] [address] 57807- 6915 Nov, [facility] [address], [place] [address] 0549 Nov, [facility] [address], [place] [address]- 6110 Nov, [facility] [address], [place] [address]- 4577 Oct, [facility] [id number] [place] [address] 22776- 1499 Oct, [facility] [id number] [place] [address] 03845- 9096 Oct, [facility] [id number] [place] [address] 43739- 2534 Oct, Chronic pain syndrome G89.4 [facility] [id number] [place] [address] 90478- 6490 Sep, Generalized anxiety disorder F41.1 and Major depressive disorder, recurrent episode, moderate F33.1 [facility] [address] [address]- 9571 Sep, [facility] [address], [place] [address]- 0291 Sep, [facility] [address], [place] [address]- 3549 Sep, Generalized anxiety disorder F41.1 [facility] [address], [place] [address]- 3735 13 Sep, 2015 Cramp of both lower extremities R25.2 and Cervicalgia M54.2 [facility] [address], [place] [address] 1860 06 Sep, 2015 Generalized anxiety disorder F41.1 [facility] [address], [place] [address]- 4730 Sep, [facility] [id number] [place] [address] 76316 -1484 August, Rash R21 ; Itching L29.9 and Allergic response, subsequent encounter T78.40XD [facility] [id number] [place] [address] 62586- 0086 August, Primary insomnia F51.01 [facility] [id number] [place] [address] 17271 -4946 August, Rash R21 ; Itching L29.9 and Allergic response, initial encounter T78.40XA [facility] [facility] [id number] [place] [address] 86502- 2602 August, [facility] [id number] [place] [address] 62572- 2483 August, Cramp of both lower extremities R25.2 [facility] [id number] [place] [address] 84389- 6300 August, Back pain M54.9 [facility] [id number] [place] [address] 00541- 9360 August, [facility] [id number] [place] [address] 50980- 0120 August, [facility] [id number] [place] [address] 34902 -1938 August, Cramp of both lower extremities R25.2 [facility] [id number] [place] [address] 22684- 0742 August, [facility] [id number] [place] [address] 51931- 3230 August, Syncope R55 ; Paroxysmal atrial fibrillation I48.0 ; Dementia without behavioral disturbance, unspecified dementia type F03.90 and Chronic pain syndrome G89.4 [facility] [id number] [place] [address] 83552- 3969 August, Type 2 diabetes mellitus with diabetic polyneuropathy E11.42 and Syncope R55 [facility] [address] [facility] [id number] [address]- 3962 Jul, [facility] [address] [facility] [id number] [place] [address] 14422- 8296 Jul, [facility] [address], [place] [address] 2544 Jul, [facility] [id number] [place] [address] 86227 2542 Jul, [facility] [address] [facility] [id number] [address]- 8326 Jul, [facility] [id number] [place] [address] 08703- 6134 Jul, UTI (urinary tract infection) N39.0 [facility] [id number] [place] [address] 12614- 8731 Jul, [facility] [address], [place] [address]- 0844 18 Jul, 2015 Major depressive disorder, recurrent episode, moderate F33.1 and Generalized anxiety disorder F41.1 [facility] [address], [place] [address]- 1005 Jul, Generalized anxiety disorder F41.1 [facility] [address], [place] [address] 254 Jul, Diarrhea R19.7 [facility] [address], [place] [address] 2542 Jul, [facility] [address], [place] [address]- 5556 Jun, [facility] [address], [place] [address]- 3393 Jun, Eczema L30.9 [facility] [address], [place] [address]- 8373 Jun, [facility] [address], [place] [address]- 6661 Jun, COPD (chronic obstructive pulmonary disease) J44.9 [facility] [address], [place] [address]- 6510 Jun, [facility] [address], [place] [address]- 3692 Jun, Major depressive disorder, recurrent episode, moderate F33.1 and Generalized anxiety disorder F41.1 [facility] [address], [place] [address]- 0678 May, [facility] [address], [place] [address]- 2127 May, UTI (urinary tract infection) N39.0 [facility] [address], [place] [address]- 3616 May, [facility] [address], [place] [address]- 3862 May, [facility] [address], [place] [address]- 7610 May, [facility] [address], [place] [address]- 6844 May, [facility] [address], [place] [address]- 2787 Apr, Major depressive disorder, recurrent episode, moderate F33.1 and Generalized anxiety disorder F41.1 [facility] [address], [place] [address]- 3129 Apr, COPD (chronic obstructive pulmonary disease) J44.9 [facility] [address], [place] [address]- 9298 Apr, [facility] [id number] [address]- 1525 Apr, Atrial flutter I48.92 [facility] [address], [place] [address]- 5123 Apr, [facility] [id number] [place] [address] 60188- 8587 Apr, [facility] [id number] [place] [address] 79118- 7250 Mar, [facility] [id number] [place] [address] 88166- 3374 Mar, [facility] [id number] [place] [address] 87986- 4810 Mar, [facility] [id number] [place] [address] 87691- 0315 Mar, Hyperlipidemia E78.5 ; Type 2 diabetes mellitus with diabetic polyneuropathy E11.42 ; Major depressive disorder, recurrent episode, moderate F33.1 and Chronic pain syndrome G89.4 [facility] [id number] [place] [address] 62222- 2590 Mar, [facility] [id number] [place] [address] 03638- 6953 Mar, [facility] [id number] [place] [address] 98353- 2133 Mar, [facility] [id number] [place] [address] 55450- 0160 Mar, [facility] [id number] [place] [address] 30198- 1168 Feb, COPD (chronic obstructive pulmonary disease) J44.9 and Back pain M54.9 [facility] [id number] [place] [address] 22267- 3281 Feb, [facility] [id number] [place] [address] 41439- 6644 Feb, [facility] [id number] [place] [address] 99781- 7566 Feb, [facility] [address], [place] [address]- 2300 Feb, [facility] [id number] [place] [address] 53368- 2721 Feb, [facility] [address], [place] [address]- 3113 Feb, [facility] [id number] [place] [address] 82509- 9578 Feb, [facility] [id number] [place] [address] 72631- 9291 Feb, [facility] [id number] [place] [address] 59486- 1836 Feb, Diabetes E11.9 ; Back pain M54.9 and COPD (chronic obstructive pulmonary disease) J44.9 [facility] [id number] [place] [address] 65153- 4358 Jan, [facility] [id number] [place] [address] 23980- 3844 Jan, Major depression, recurrent F33.9 and Generalized anxiety disorder F41.1 [facility] [id number] [place] [address] 63095- 5652 Jan, Chronic pain G89.29 [facility] [id number] [place] [address] 90552- 4451 Jan, [facility] [id number] [place] [address] 77647- 6054 Jan, [facility] [id number] [place] [address] 24992- 0915 Jan, [facility] [id number] [place] [address] 42222- 1888 Jan, [facility] [id number] [place] [address] 15329- 0903 Jan, Nicotine dependence F17.200 [facility] [id number] [place] [address] 69963- 0148 Jan, Nicotine dependence F17.200 and Back pain M54.9 [facility] [id number] [place] [address] 34033- 8033 Jan, [facility] [id number] [place] [address] 80512- 1697 28 Dec, 2014 [facility] [address] 30075- 9410 25 Dec, 2014 Anxiety, generalized 300.02 and Major depression, recurrent 296.30 [facility] [address] 14155- 5093 24 Dec, 2014 [facility] [id number] [place] [address] 55007- 9886 21 Dec, 2014 [facility] [id number] [place] [address] 55602- 1913 17 Dec, 2014 [facility] [id number] [place] [address] 03855- 6940 15 Dec, 2014 [facility] [id number] [place] [address] 84189- 8068 14 Dec, 2014 [facility] [id number] [place] [address] 63364- 2054 11 Dec, 2014 [facility] [id number] [place] [address] 79058- 9094 10 Dec, 2014 [facility] [id number] [place] [address] 00334- 7562 08 Dec, 2014 Skin tear 879.8 [facility] [id number] [place] [address] 82040- 9336 08 Dec, 2014 Routine gynecological examination V72.31 ; Breast cancer screening V76.10 and Family history of breast cancer in first degree relative V16.3 [facility] [id number] [place] [address] 75344- 7078 Dec, [facility] [id number] [place] [address] 42584- 5987 Dec, [facility] [id number] [place] [address] 77882- 8740 Nov, [facility] [id number] [place] [address] 26895- 4391 Nov, [facility] [id number] [place] [address] 89033- 8228 Nov, Poor balance 781.99 and Vascular dementia, uncomplicated 290.40 [facility] [address] 66239- 0358 Nov, [facility] [id number] [place] [address] 45782- 5149 Nov, Major depression, recurrent 296.30 and Anxiety, generalized 300.02 [facility] [id number] [place] [address] 71495- 9111 Nov, [facility] [id number] [place] [address] 31332- 0075 Nov, [facility] [id number] [place] [address] 40529- 4266 Nov, [facility] [id number] [place] [address] 74770- 1654 Nov, [facility] [id number] [place] [address] 37450- 3809 Nov, Vascular dementia, uncomplicated 290.40 and Lumbago 724.2 [facility] [id number] [place] [address] 78794- 9637 Nov, [facility] [id number] [place] [address] 25275- 1623 Nov, [facility] [id number] [place] [address] 20886- 8999 Nov, [facility] [address] [address]- 4996 Oct, [facility] [id number] [place] [address] 97307- 1632 Oct, [facility] [address] [address]- 9641 Oct, [facility] [id number] [place] [address] 49996- 4312 Oct, COPD (chronic obstructive pulmonary disease) 496 and Hyperlipidemia 272.4 [facility] [id number] [place] [address] 80103- 1680 Oct, Major depression, recurrent 296.30 and Anxiety, generalized 300.02 [facility] [id number], [place] [address]- 8540 Oct, [facility] [id number] [place] [address] 32605- 5807 Oct, [facility] [id number] [address]- 8318 Oct, [facility] [id number] [place] [address] 22147- 5696 Sep, Lumbago 724.2 and Anxiety state, unspecified 300.00 [facility] [address], [place] [address]- 3818 Sep, [facility] [address], [place] [address]- 5218 Sep, [facility] [address], [place] [address]- 7817 August, [facility] [id number] [address]- 2421 August, Major depression, recurrent 296.30 ; Anxiety, generalized 300.02 and No condition on Key[place] II V71.09 [facility] [id number] [place] [address]- 7482 August, [facility] [place] [facility] [address] [id number] [place] [address]- 1015 August, [facility] [place] [facility] [address] [id number] [place] [address]- 5329 29 Jul, 2014 [facility] [place] [facility] [address] [id number] [place] [address]- 6309 14 Jul, 2014 [facility] [place] [facility] [address] [id number] [place] [address]- 6036 Jul, [facility] [place] [facility] [address] [id number] [place] [address]- 3958 30 Jun, 2014 [facility] [place] [facility] [address] [id number] [place] [address]- 4652 30 Jun, 2014 [facility] [place] [facility] [address] [id number] [place] [address]- 0378 Jun, [facility] [place] [facility] [address] [id number] [place] [address]- 9590 27 Jun, 2014 [facility] [place] [facility] [address] [id number] [place] [address]- 4139 26 Jun, 2014 [facility] [place] [facility] [address] [id number] [place] [address]- 6926 Jun, [facility] [place] [facility] [address] [id number] [place] [address]- 5426 23 Jun, 2014 [facility] [place] [facility] [address] [id number] [place] [address]- 2737 17 Jun, 2014 [facility] [place] [facility] [address] [id number] [place] [address]- 0672 13 Jun, 2014 [facility] [place] [facility] [address] [id number] [place] [address]- 9347 13 Jun, 2014 [facility] [place] [facility] [address] [id number] [place] [address]- 2150 10 Jun, 2014 [facility] [place] [facility] [address] [id number] [place] [address]- 8240 10 Jun, 2014 [facility] [place] [facility] [address] [id number] [place] [address]- 4240 Jun, 2014 [facility] [place] [facility] [address] [id number] [place] [address]- 5299 Jun, 2014 [facility] [place] [facility] [address] [id number] [place] [address]- 4386 Jun, 2014 [facility] [place] [facility] [address] [id number] [place] [address]- 2034 Jun, 2014 [facility] [place] [facility] [address] [id number] [place] [address]- 9713 May, 2014 [facility] [place] [facility] [address] [id number] [place] [address]- 4368 May, 2014 [facility] [place] [facility] [address] [id number] [place] [address]- 2351 May, 2014 [facility] [place] [facility] [address] [id number] [place] [address]- 5498 May, 2014 [facility] [place] [facility] [address] [id number] [place] [address]- 6204 May, 2014 [facility] [place] [facility] [address] [id number] [place] [address]- 9615 May, 2014 [facility] [place] [facility] [address] [id number] [place] [address]- 4505 May, 2014 [facility] [place] [facility] [address] [id number] [place] [address]- 9339 May, 2014 [facility] [place] [facility] [address] [id number] [place] [address]- 6099 May, 2014 [facility] [place] [facility] [address] [facility] [id number] [place] [address]- 1618 May, 2014 [facility] [place] [facility] [address] [id number] [place] [address]- 1331 May, [facility] [place] [facility] [address] [id number] [place] [address]- 3356 May, [facility] [place] [facility] [address] [id number] [place] [address]- 2706 May, [facility] [place] [facility] [address] [id number] [place] [address]- 7786 May, [facility] [place] [facility] [address] [id number] [place] [address]- 6826 Apr, [facility] [place] [facility] [address] [id number] [place] [address]- 0029 Apr, [facility] [place] [facility] [address] [id number] [place] [address]- 5119 Apr, [facility] [place] [facility] [address] [id number] [place] [address]- 4997 Apr, [facility] [place] [facility] [address] [id number] [place] [address]- 1703 Apr, [facility] [place] [facility] [address] [id number] [place] [address] Apr, [facility] [place] [facility] [address] [id number] [place] [address] Apr, [facility] [place] [facility] [address] [id number] [place] [address] Apr, [facility] [place] [facility] [address] [id number] [place] [address] Apr, [facility] [place] [facility] [address] [id number] [place] [address] Apr, [facility] [place] [facility] [address] [id number] [place] [address] Apr, [facility] [place] [facility] [address] [id number] [place] [address] Apr, [facility] [place] [facility] [address] [id number] [place] [address] 31 Mar, 2014 [facility] [place] [facility] [address] [id number] [place] [address] Mar, [facility] [place] [facility] [address] [id number] [place] [address] 30 Mar, 2014 [facility] [place] [facility] [address] [id number] [place] [address] 30 Mar, 2014 [facility] [place] [facility] [address] [id number] [place] [address] Mar, [facility] [place] [facility] [address] [id number] [place] [address] Mar, [facility] [place] [facility] [address] [id number] [place] [address] Mar, [facility] [place] [facility] [address] [id number] [place] [address] Mar, [facility] [place] [facility] [address] [id number] [place] [address] 15 Mar, 2014 [facility] [place] [facility] [address] [id number] [place] [address] 15 Mar, 2014 [facility] [place] [facility] [address] [id number] [place] [address] 15 Mar, 2014 [facility] [place] [facility] [address] [id number] [place] [address]- [address] 15 Mar, 2014 [facility] [place] [facility] [address] [id number] [place] [address] 15 Mar, 2014 [facility] [place] [facility] [address] [id number] [place] [address] 15 Mar, 2014 [facility] [place] [facility] [address] [id number] [place] [address] 08 Mar, 2014 [facility] [place] [facility] [address] [id number] [place] [address] Mar, [facility] [place] [facility] [address] [id number] [place] [address] Mar, [facility] [place] [facility] [address] [id number] [place] [address] Mar, [facility] [place] [facility] [address] [id number] [place] [address] Mar, [facility] [place] [facility] [address] [id number] [place] [address] Mar, [facility] [place] [facility] [address] [id number] [place] [address] Feb, [facility] [place] [facility] [address] [id number] [place] [address] Feb, [facility] [place] [facility] [address] [id number] [place] [address] Feb, [facility] [place] [facility] [address] [id number] [place] [address] Feb, [facility] [place] [facility] [address] [id number] [place] [address] Feb, [facility] [place] [facility] [address] [id number] [place] [address] Feb, [facility] [place] [facility] [address] [id number] [place] [address] Feb, [facility] [place] [facility] [address] [id number] [address] Feb, [facility] [place] [facility] [address] [id number] [place] [address] Feb, [facility] [place] [facility] [address] [id number] [place] [address] Feb, [facility] [place] [facility] [address] [id number], [place] [address] Feb, [facility] [place] [facility] [address] [id number] [place] [address] 07 Feb, 2014 [facility] [place] [facility] [address] [id number] [place] [address] Feb, [facility] [place] [facility] [address] [id number] [place] [address] 7436 Feb, [facility] [place] [facility] [address] [id number] [place] [address] 7779 Feb, [facility] [place] [facility] [address] [id number] [place] [address] Feb, [facility] [place] [facility] [address] [id number] [place] [address] 0247 Feb, [facility] [place] [facility] [address] [id number] [place] [address]- 1455 Jan, [facility] [place] [facility] [address] [id number] [place] [address]- 7745 Jan, [facility] [place] [facility] [address] [id number] [place] [address]- 0609 Jan, [facility] [place] [facility] [address] [id number] [place] [address]- 9325 Jan, [facility] [place] [facility] [address] [id number] [place] [address]- 9673 Jan, [facility] [place] [facility] [address] [id number] [place] [address]- 0675 Jan, [facility] [place] [facility] [address] [id number] [place] [address]- 6429 Jan, [facility] [place] [facility] [address] [id number] [place] [address] Jan, [facility] [place] [facility] [address] [id number] [place] Jan, [facility] [place] [facility] [address] [id number] [place] [address] 1533 Jan, [facility] [place] [facility] [address] [id number] [place] [address]- 0482 Jan, [facility] [place] [facility] [address] [id number] [place] [address]- 5528 Dec, [facility] [place] [facility] [address] [id number] [place] [address]- 1023 Dec, [facility] [place] [facility] [address] [id number] [place] [address]- 7825 Nov, [facility] [place] [facility] [address] [id number] [place] [address]- 4049 Nov, [facility] [place] [facility] [address] [id number] [place] [address]- 6256 Nov, [facility] [place] [facility] [address] [id number] [place] [address]- 1175 Nov, [facility] [place] [facility] [address] [id number] [place] [address]- 3520 Nov, [facility] [place] [facility] [address] [id number] [place] [address]- 5034 Nov, [facility] [place] [facility] [address] [id number] [place] [address]- 8384 Nov, [facility] [place] [facility] [address] [id number] [address]- 4914 Oct, [facility] [place] [facility] [address] [id number], [place] [address]- 3759 Oct, [facility] [place] [facility] [address] [id number] [place] [address]- 2450 Oct, [facility] [place] [facility] [address] [id number], [place] [address]- 7564 Oct, [facility] [place] [facility] [address] [id number] [place] [address]- 0727 Sep, [facility] [place] [facility] [address] [id number] [place] [address]- 8149 Sep, [facility] [place] [facility] [address] [id number] [place] [address]- 7421 Sep, [facility] [place] [facility] [address] [id number] [place] [address]- 6454 Sep, [facility] [place] [facility] [address] [id number] [place] [address]- 8209 Sep, [facility] [place] [facility] [address] [id number] [place] [address]- 5162 Sep, [facility] [place] [facility] [address] [id number] [place] [address]- 2110 Sep, [facility] [place] [facility] [address] [id number] [place] [address]- 6232 Sep, [facility] [place] [facility] [address] [id number] [place] [address]- 0478 Sep, [facility] [place] [facility] [address] [id number] [place] [address]- 6560 Sep, [facility] [place] [facility] [address] [id number] [place] [address]- 8655 Sep, [facility] [place] [facility] [address] [id number] [place] [address]- 5430 Sep, [facility] [place] [facility] [address] [id number] [place] [address]- 3626 Sep, [facility] [place] [facility] [address] [id number] [place] [address]- 9568 Sep, [facility] [place] [facility] [address] [id number] [place] [address]- 4572 August, [facility] [place] [facility] [address] [id number] [place] [address]- 2130 August, [facility] [place] [facility] [address] [id number] [place] [address]- 5002 August, [facility] [place] [facility] [address] [id number] [place] [address]- 6658 August, [facility] [address] [id number] [place] [address]- 1319 August, [facility] [address] [id number] [place] [address]- 0611 August, [facility] [address] [id number] [place] [address]- 3126 August, [facility] [address] [id number] [place] [address]- 3989 August, [facility] [address] [id number] [place] [address]- 9400 August, [facility] [address] [id number] [place] [address]- 3101 August, [facility] [address] [id number] [place] [address]- 7451 August, [facility] [address] [id number] [place] [address]- 9513 August, [facility] [address] [id number] [place] [address]- 8803 August, [facility] [address] [id number] [place] [address]- 0863 August, [facility] [place] [facility] [address] [id number] [place] [address]- 5821 August, [facility] [place] [facility] [address] [id number] [place] [address]- 2697 August, [facility] [place] [facility] [address] [id number] [place] [address]- 0801 August, [facility] [address] [id number] [place] [address]- 5342 August, [facility] [place] [facility] [address] [id number] [place] [address]- 0312 August, [facility] [place] [facility] [address] [id number] [place] [address]- 3059 Jul, [facility] [place] [facility] [address] [id number] [place] [address]- 0829 Jul, [facility] [place] [facility] [address] [id number] [place] [address]- 1004 Jul, [facility] [place] [facility] [address] [id number] [place] [address]- 2669 Jul, [facility] [place] [facility] [address] [id number] [place] [address]- 5988 Jun, [facility] [place] [facility] [address] [id number] [place] [address]- 6759 Jun, [facility] [place] [facility] [address] [id number] [place] [address]- 9848 Jun, [facility] [place] [facility] [address] [id number] [place] [address]- 9122 Jun, [facility] [place] [facility] [address] [id number] [place] [address]- 4863 Jun, [facility] [place] [facility] [address] [id number] [place] [address]- 8807 Jun, [facility] [place] [facility] [address] [id number] [place] [address]- 5664 Jun, [facility] [place] [facility] [address] [id number] [place] [address]- 2176 Jun, [facility] [place] [facility] [address] [id number] [place] [address]114 Jun, [facility] [place] [facility] [address] [id number] [place] [address]- 2620 Jun, [facility] [place] [facility] [address] [id number] [place]75 May, [facility] [place] [facility] [address] [id number] [place] [address]- 5327 May, [facility] [place] [facility] [address] [id number] [place] [address]- 2706 May, [facility] [place] [facility] [address] [id number] [place] [address]- 2546 May, [facility] [place] [facility] [address] [id number] [place] [address] 2546 May, 2013 [facility] [place] [facility] [address] [id number] [place] [address]- 2545 May, [facility] [place] [facility] [address] [id number] [place] [address]- 5466 20 May, 2013 [facility] [place] [facility] [address] [facility] [id number] [place] [address]- 9605 May, [facility] [place] [facility] [address] [id number] [place] [address]- 3595 May, [facility] [place] [facility] [address] [id number] [place] [address]- 6664 18 May, 2013 [facility] [place] [facility] [address] [facility] [id number] [place] [address]- 8236 18 May, 2013 [facility] [place] [facility] [address] [facility] [id number] [place] [address]- 3726 17 May, 2013 [facility] [place] [facility] [address] [id number] [place] [address]- 7214 May, [facility] [place] [facility] [address] [id number] [place] [address]- 2546 11 May, 2013 [facility] [place] [facility] [address] [id number] [place] [address]- 1272 10 May, 2013 [facility] [place] [facility] [address] [facility] [id number] [place] [address]- 2546 07 May, 2013 [facility] [place] [facility] [address] [id number] [place] [address]- 1316 07 May, 2013 [facility] [address] [id number] [place] [address]- 6206 Apr, [facility] [address] [id number] [place] [address]- 7566 15 Apr, 2013 [facility] [address] [id number] [place] [address]- 7036 Apr, [facility] [address] [id number] [place] [address]- 0749 Apr, [facility] [address] [id number] [place] [address]- 0956 Apr, [facility] [address] [id number] [place] [address]- 4969 Apr, [facility] [address] [id number] [place] [address]- 2523 Apr, [facility] [address] [id number] [place] [address]- 7424 Mar, [facility] [address] [id number] [place] [address]- 5359 Mar, [facility] [address] [facility] [id number] [place] [address]- 6317 Mar, [facility] [address] [id number] [place] [address]- 7856 Mar, [facility] [address] [id number] [place] [address]- 9755 Mar, [facility] [address] [id number] [place] [address]- 3592 Mar, [facility] [address] [id number] [place] [address]- 1366 Mar, [facility] [address] [id number] [place] [address]- 0745 Mar, [facility] [place] [facility] [address] [id number] [place] [address]- 8031 04 Mar, 2013 [facility] [place] [facility] [address] [id number] [place] [address]- 2524 Mar, [facility] [place] [facility] [address] [id number] [place] [address]- 0792 Mar, [facility] [place] [facility] [address] [id number] [place] [address]- 0729 Feb, [facility] [place] [facility] [address] [id number] [place] [address]- 6068 Feb, [facility] [place] [facility] [address] [id number] [place] [address]- 7191 Feb, [facility] [place] [facility] [address] [id number] [place] [address]- 8034 Feb, [facility] [place] [facility] [address] [id number] [place] [address]- 9752 Feb, [facility] [place] [facility] [address] [id number] [place] [address]- 8302 19 Feb, 2013 [facility] [place] [facility] [address] [id number], [place] [address]- 3629 15 Feb, 2013 [facility] [place] [facility] [address] [id number] [place] [address]- 1775 14 Feb, 2013 [facility] [place] [facility] [address] [id number], [place] [address]- 9627 14 Feb, 2013 [facility] [place] [facility] [address] [id number] [place] [address]- 2834 13 Feb, 2013 [facility] [place] [facility] [address] [id number], [place] [address]- 4633 13 Feb, 2013 [facility] [place] [facility] [address] [id number], [place] [address]- 1797 12 Feb, 2013 [facility] [place] [facility] [address] [id number], [place] [address]- 9695 Feb, [facility] [place] [facility] [address] [id number] [place] [address]- 3926 Feb, [facility] [place] [facility] [address] [id number] [address]- 2818 Feb, [facility] [place] [facility] [address] [id number] [place] [address]- 7080 Feb, [facility] [place] [facility] [address] [id number] [place] [address]- 8463 Jan, [facility] [place] [facility] [address] [id number] [place] [address]- 6651 Jan, [facility] [place] [facility] [address] [id number] [place] [address]- 1027 Jan, [facility] [place] [facility] [address] [id number] [place] [address]- 5505 Jan, [facility] [place] [facility] [address] [id number] [place] [address]- 4476 Jan, [facility] [place] [facility] [address] [id number] [place] [address]- 7997 Jan, [facility] [place] [facility] [address] [id number] [place] [address]- 9836 Jan, [facility] [place] [facility] [address] [id number], [place] [address]- 9984 Jan, [facility] [place] [facility] [address] [id number], [place] [address]- 8370 10 Jan, 2013 [facility] [place] [facility] [address] [id number] [place] [address]- 6295 27 Dec, 2012 [facility] [place] [facility] [address] [id number] [place] [address]- 0188 20 Dec, 2012 [facility] [place] [facility] [address] [id number] [place] [address]- 7896 19 Dec, 2012 [facility] [place] [facility] [address] [id number] [place] [address]- 3388 10 Dec, 2012 [facility] [place] [facility] [address] [id number] [place] [address]- 0155 04 Dec, 2012 [facility] [place] [facility] [address] [id number] [place] [address]- 5806 Dec, [facility] [place] [facility] [address] [id number] [place] [address]- 6726 Nov, [facility] [place] [facility] [address] [id number] [place] [address]- 0237 Nov, [facility] [place] [facility] [address] [id number] [place] [address]- 6032 Nov, [facility] [place] [facility] [address] [id number] [place] [address]- 6384 Nov, [facility] [place] [facility] [address] [id number] [place] [address]- 6493 Nov, [facility] [place] [facility] [address] [id number] [place] [address]- 3737 Nov, [facility] [place] [facility] [address] [id number] [place] [address]- 5110 Nov, [facility] [place] [facility] [address] [id number] [place] [address]- 2193 Nov, [facility] [place] [facility] [address] [id number] [place] [address]- 6992 Nov, [facility] [place] [facility] [address] [id number] [place] [address]- 4567 Nov, [facility] [place] [facility] [address] [id number] [place] [address]- 0028 Oct, [facility] [place] [facility] [address] [id number] [place] [address] 2543 Oct, [facility] [place] [facility] [address] [id number] [place] [address]- 7784 Oct, [facility] [place] [facility] [address] [id number] [place] [address]- 9596 Oct, [facility] [place] [facility] [address] [id number] [place] [address]- 1836 Oct, [facility] [place] [facility] [address] [id number] [place] [address]- 7716 Oct, [facility] [place] [facility] [address] [id number] [place] [address]- 7880 Oct, [facility] [place] [facility] [address] [id number] [place] [address]- 2485 Oct, [facility] [place] [facility] [address] [id number] [place] [address]- 2429 Sep, [facility] [place] [facility] [address] [id number] [place] [address]- 8226 Sep, [facility] [place] [facility] [address] [id number] [place] [address]- 5380 Sep, [facility] [place] [facility] [address] [id number] [place] [address]- 7661 Sep, [facility] [place] [facility] [address] [id number] [place] [address]- 6765 Sep, [facility] [place] [facility] [address] [id number] [place] [address]- 9044 Sep, [facility] [place] [facility] [address] [id number], [place] [address]- 7500 Sep, [facility] [place] [facility] [address] [id number] [place] [address]- 7312 Sep, [facility] [place] [facility] [address] [id number] [place] [address]- 8269 August, [facility] [place] [facility] [address] [id number] [place] [address]- 6122 August, [facility] [place] [facility] [address] [id number] [place] [address]- 7500 August, [facility] [address] [id number] [place] [address]- 4120 August, [facility] [address] [id number] [place] [address]- 8905 August, [facility] [address] [id number] [place] [address]- 7390 Jul, [facility] [address] [id number] [place] [address]- 6437 Jul, [facility] [address] [id number] [place] [address]- 3747 Jul, [facility] [address] [id number] [place] [address]- 3694 Jul, [facility] [address] [id number] [place] [address]- 2956 Jul, [facility] [address] [id number] [place] [address]- 7289 Jun, [facility] [address] [id number] [place] [address]- 9445 18 Jun, 2012 [facility] [address] [id number] [place] [address]- 2186 15 Jun, 2012 [facility] [address] [id number] [place] [address]- 4258 14 Jun, 2012 [facility] [address] [id number] [place] [address]- 6836 12 Jun, 2012 [facility] [place] [facility] [address] [id number] [place] [address]- 7808 08 Jun, 2012 [facility] [place] [facility] [address] [id number] [place]186 08 Jun, 2012 [facility] [address] [id number] [place] [address]- 7293 02 Jun, 2012 [facility] [address] [id number] [place] [address]- 6230 Jun, [facility] [address] [id number] [place] [address]- 4066 May, [facility] [address] [id number] [place] [address]- 8846 May, [facility] [address] [id number] [place] [address]- 7706 May, [facility] [address] [id number] [place] [address]- 4932 May, [facility] [address] [id number] [place] [address] Apr, [facility] [address] [id number] [place] [address] Apr, [facility] [address] [id number] [place] [address] Apr, [facility] [address] [id number] [place] [address] Apr, [facility] [address] [id number] [place] [address] Apr, [facility] [address] [id number] [place] [address] Apr, [facility] [address] [id number] [place] [address] Apr, [facility] [address] [id number] [place] [address] Mar, [facility] [place] [id number] Mar, [facility] [address] [id number] [place] [address] Mar, [facility] [address] [id number] [place] [address] Mar, [facility] [place] [facility] [address] [id number] [place] [address] Mar, [facility] [place] [facility] [address] [id number] [place] [address] Mar, [facility] [place] [facility] [address] [id number] [place] [address] Mar, [facility] [place] [facility] [address] [id number] [place] [address] Mar, [facility] [place] [facility] [address] [id number] [place] [address] Mar, [facility] [place] [facility] [address] [id number] [place] [address] Mar, [facility] [place] [facility] [address] [id number] [place] [address] Mar, [facility] [place] [facility] [address] [id number] [place] [address] Mar, [facility] [place] [facility] [address] [id number] [place] [address] Mar, [facility] [place] [facility] [address] [id number] [place] [address] Mar, [facility] [place] [facility] [address] [id number] [place] [address] Mar, [facility] [place] [facility] [address] [id number], [place] [address] Mar, [facility] [place] [facility] [address] [id number] [place] [address] Mar, [facility] [place] [facility] [address] [id number] [place] [address] Feb, [facility] [place] [facility] [address] [id number] [place] [address] Feb, [facility] [place] [facility] [address] [id number] [place] [address] Feb, [facility] [place] [facility] [address] [id number] [place] [address] Feb, [facility] [place] [facility] [address] [id number] [place] [address] Feb, [facility] [place] [facility] [address] [id number] [place] [address] Feb, [facility] [place] [facility] [address] [id number] [place] [address] Feb, [facility] [place] [facility] [address] [id number] [place] [address] Feb, [facility] [place] [facility] [address] [id number] [place] [address] Feb, [facility] [place] [facility] [address] [id number] [place] [address] Feb, [facility] [place] [facility] [address] [id number] [place] [address] Feb, [facility] [place] [facility] [address] [id number] [place] [address] Feb, [facility] [place] [facility] [address] [id number] [place] [address] Feb, [facility] [place] [facility] [address] [id number] [place] [address] Feb, [facility] [place] [facility] [address] [id number], [place] [address] Feb, [facility] [place] [facility] [address] [id number] [place] [address] Feb, [facility] [place] [facility] [address] [id number] [place] [address] Jan, [facility] [place] [facility] [address] [id number], [place] [address] Jan, [facility] [place] [facility] [address] [id number] [place] [address] 2008 Jan, [facility] [place] [facility] [address] [id number] [place] [address] Jan, [facility] [place] [facility] [address] [id number] [place] [address]- [address] Jan, [facility] [place] [facility] [address] [id number] [place] [address]- [address] Jan, [facility] [place] [facility] [address] [id number] [place] [address]- 94[address] Jan, [facility] [place] [facility] [address] [id number] [place] [address]- [address] Jan, [facility] [place] [facility] [address] [id number] [place] [address] 6468 Jan, [facility] [place] [facility] [address] [id number] [place] [address]843 Jan, [facility] [place] [facility] [address] [id number] [place] [address]- [address] Jan, [facility] [place] [facility] [address] [id number] [place] [address]- [address] Jan, [facility] [place] [facility] [address] [id number] [place] [address]- [address]261 Jan, [facility] [place] [facility] [address] [id number], [place] [address] Jan, [facility] [place] [facility] [address] [id number] [place] [address]- [address] Jan, [facility] [place] [facility] [address] [id number] [place] [address]- [address]259 Jan, [facility] [place] [facility] [address] [id number] [place] [address]- [address] Jan, [facility] [place] [facility] [address] [id number], [place] [address] 21 Dec, 2011 [facility] [place] [facility] [address] [id number] [place] [address]46 20 Dec, 2011 [facility] [place] [facility] [address] [id number] [place] [address] 2546 18 Dec, 2011 [facility] [place] [facility] [address] [id number] [place] [address] 2546 18 Dec, 2011 [facility] [place] [facility] [address] [id number] [place] [address] 2546 10 Dec, 2011 [facility] [place] [facility] [address] [id number] [place] [address] 2546 10 Dec, 2011 [facility] [place] [facility] [address] [id number] [place] [address]- [address]796 10 Dec, 2011 [facility] [place] [facility] [address] [id number] [place] [address]- [address] 07 Dec, 2011 [facility] [place] [facility] [address] [id number] [place] [address]- [address]76 30 Nov, 2011 [facility] [place] [facility] [address] [id number] [place] [address]- [address] Nov, [facility] [place] [facility] [address] [id number] [place] [address]- [address] 24 Nov, 2011 [facility] [place] [facility] [address] [id number] [place] [address]- 98[address] Nov, [facility] [place] [facility] [address] [id number] [place] [address] 2546 Nov, [facility] [place] [facility] [address] [id number] [place] [address] 2546 16 Nov, 2011 [facility] [place] [facility] [address] [id number] [place] [address]- 2546 Oct, [facility] [place] [facility] [address] [id number] [place] [address]- [address]46 Oct, [facility] [place] [facility] [address] [id number] [place] [address]- [address] Oct, [facility] [address] [id number] [place] [address]- 9412 Oct, [facility] [place] [facility] [address] [id number] [place] [address]- 9188 Oct, [facility] [address] [id number] [place] [address]- 9600 Oct, [facility] [place] [facility] [address] [id number] [place] [address]- [address]61 Oct, [facility] [address] [id number] [place] [address]- 5265 Sep, [facility] [place] [facility] [address] [id number] [place] [address]- 8674 Sep, [facility] [place] [facility] [address] [id number] [place] [address] Sep, [facility] [address] [id number] [place] [address] Sep, [facility] [place] [facility] [address] [id number] [place] [address] Sep, [facility] [address] [id number] [place] [address] 15 Sep, 2011 [facility] [place] [facility] [address] [id number] [place] [address] 14 Sep, 2011 [facility] [place] [facility] [address] [id number] [place] [address] Sep, [facility] [place] [facility] [address] [id number] [place] [address] 05 Sep, 2011 [facility] [place] [facility] [address] [id number] [place] [address] 04 Sep, 2011 [facility] [place] [facility] [address] [id number] [place] [address] August, [facility] [address] [id number] [place] [address] August, [facility] [place] [facility] [address] [id number] [place] [address] August, [facility] [place] [facility] [address] [id number] [place] [address] August, [facility] [place] [facility] [address] [id number] [place] [address] August, [facility] [address] [id number] [place] [address] Jul, [facility] [place] [facility] [address] [id number] [place] [address] Jul, [facility] [place] [facility] [address] [id number] [place] [address] Jul, [facility] [address] [id number] [place] [address] Jul, [facility] [place] [facility] [address] [id number] [place] [address] Jul, [facility] [place] [facility] [address] [id number] [place] [address] 67[address] Jul, [facility] [place] [facility] [address] [id number] [place] [address] Jul, [facility] [place] [facility] [address] [id number] [address] Jun, [facility] [place] [facility] [address] [id number] [place] [address] Jun, [facility] [place] [facility] [address] [id number] [place] [address] Jun, [facility] [place] [facility] [address] [id number] [place] [address] Jun, [facility] [place] [facility] [address] [id number], [place] [address] Jun, [facility] [place] [facility] [address] [id number] [place] [address] 36[address] May, [facility] [place] [facility] [address] [id number] [place] [address] May, [facility] [place] [facility] [address] [id number] [place] [address] May, [facility] [place] [facility] [address] [id number] [place] [address] May, [facility] [place] [facility] [address] [id number] [place] [address] May, [facility] [place] [facility] [address] [facility] [id number] [place] [address] May, [facility] [place] [facility] [address] [id number] [place] [address] Apr, [facility] [place] [facility] [address] [id number] [place] [address] Mar, [facility] [place] [facility] [address] [facility] [id number] [place] [address] Feb, [facility] [place] [facility] [address] [facility] [id number] [place] [address] 4[address] Feb, [facility] [place] [facility] [address] [id number] [place] [address] 9213 Feb, [facility] [place] [facility] [address] [id number] [place] [address] Feb, [facility] [place] [facility] [address] [id number] [place] [address] 5685 Jan, [facility] [place] [facility] [address] [facility] [id number] [place] [address] 0[address] Jan, [facility] [place] [facility] [address] [id number] [place] [address] 6161 Jan, [facility] [place] [facility] [address] [id number] [place] [address] 265[address] 24 Jan, 2011 [facility] [address] [id number] [place] [address] 14 Jan, 2011 [facility] [address] [id number] [place] [address]- 3766 19 Dec, 2010 [facility] [address] [id number] [place] [address] 6645 20 Oct, 2010 [facility] [address] [id number] [place] [address] August, [facility] [address] [id number] [place] [address]- 4692 29 Mar, 2010 [facility] [address] [id number] [place] [address] 27 Mar, 2010 [facility] [address] [id number] [place] [address] 8546 16 Mar, 2010 [facility] [address] [id number] [place] [address] 2168 15 Mar, 2010 [facility] [address] [id number] [place] [address]- 1077 15 Mar, 2010 [facility] [address] [id number] [place] [address] 4[address] 08 Mar, 2010 [facility] [address] [id number] [place] [address]- 8104 03 Mar, 2010 [facility] [address] [id number] [place] [address] 3183 24 Feb, 2010 [facility] [place] [facility] [address] [id number] [place] [address] 0851 24 Feb, 2010 [facility] [address] [id number] [place] [address]- 5748 15 Feb, 2010 [facility] [address] [id number] [address] Jan, [facility] [place] [facility] [address] [id number] [place] [address] 7020 Jan, [facility] [place] [facility] [address] [id number], [place] [address] Jan, [facility] [place] [facility] [address] [id number] [place] [address] 2246 Nov, [facility] [place] [facility] [address] [id number], [place] [address] 14 Sep, 2009 [facility] [place] [facility] [address] [id number] [place] [address]26 August, [facility] [place] [facility] [address] [id number] [place] [address] 59[address] Mar, [facility] [place] [facility] [address] [id number], [place] [address] 9670 Mar, [facility] [place] [facility] [address] [id number], [place] [address]- 6330 17 Feb, 2009 [facility] [place] [facility] [address] [id number], [place] [address] 7933 Feb, [facility] [place] [facility] [address] [id number], [place] [address] 9346 Feb, [facility] [place] [facility] [address] [id number], [place] [address] Feb, [facility] [place] [facility] [address] [id number], [place] [address]- 1247 06 Feb, 2009 [facility] [place] [facility] [address] [id number], [place] [address]- 69[address] 27 Jan, 2009 [facility] [place] [facility] [address] [id number], [place] [address]- [address]797 Jan, [facility] [place] [facility] [address] [id number], [place] [address]- [address]53 20 Jan, 2009 [facility] [place] [facility] [address] [facility] [id number] [place] [address]- [address] Jan, [facility] [address] [id number], [place] [address] Nov, [facility] [address] [id number], [place] [address] Sep, [facility] [address] [id number], [place] [address] August, [facility] [address] [id number], [place] [address]- [address] Jul, [facility] [id number], [place] [address] May, IMMUNIZATIONS No Known Immunizations SOCIAL HISTORY Never Assessed REASON FOR VISIT Needing [place] PLAN OF CARE VITAL SIGNS MEDICATIONS Unknown [...] History C-spine surgery w/ anterior decompression (Dr. Basiilo) 01/2013 Surgical History cervical fusion 01/2009 Surgical [...] Knee Surgery 07/16/17 Hospitalization History [facility]- left hand/wrist swelling 10/09/2017
--- OUTSIDE RECORDS SUMMARY | 2018-01-01 12:28 | XMS REPORT ---
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 Contact Wheel Name Role Phone SENAIT DUNLAP Unavailable PROBLEMS Type Condition ICD9-CM Code APV05-SB Code Onset Dates Condition Status SNOMED Code Problem History of common bile duct surgery Z98.89 Active 420267225 Problem Barretts esophagus K22.70 Active 151128030 Problem 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 Active 49475900 Problem Colon polyp K63.5 Active 95933808 Problem Bilateral low back pain without sciatica M54.5 Active 944852980 Problem Screening breast examination Z12.39 Active 156418081 Problem Postmenopausal Z78.0 Active 54408135 Problem Osteopenia M85.80 Active 974294253 Problem Cigarette nicotine dependence without complication F17.210 Active 86934001 Problem Type 2 diabetes mellitus with diabetic peripheral angiopathy without gangrene E11.51 Active 592518254 Problem Vascular dementia without behavioral disturbance F01.50 Active 94244211911562000 Problem Unspecified atherosclerosis of [place] arteries of extremities, unspecified extremity I70.209 Active 256199898259161 Problem Arthritis M19.90 Active 4034297 Problem Chronic atrial fibrillation I48.2 Active 042139587 Problem Chronic obstructive pulmonary disease with acute lower respiratory infection J44.0 Active 918758174 Problem Other chronic pancreatitis K86.1 Active 104524186 Problem Stress incontinence of urine N39.3 Active 82968353 Problem Controlled type 2 diabetes mellitus without complication, without long -term current use of insulin E11.9 Active 014341787 Problem Unspecified psychosis F29 Active 54322633 Problem Xeroderma Q80.9 Active 90749461 Problem COPD (chronic obstructive pulmonary disease) J44.9 Active 88569135 Problem Dementia without behavioral disturbance, unspecified dementia type F03.90 Active 28118864 Problem Gastroparesis K31.84 Active 729572472 Problem Type 2 diabetes mellitus with diabetic neuropathy, without long-term current use of insulin E11.40 Active 94734234 Problem Osteoporosis M81.0 Active 69463010 Problem Atherosclerosis of [place] artery of both lower extremities with intermittent claudication I70.213 Active 777753176172784 Problem Hyperlipidemia E78.5 Active 26005061 Problem Diabetic polyneuropathy associated with type 2 diabetes mellitus E11.42 Active 46944079 Problem Essential tremor G25.0 Active 32493639 Problem Atherosclerotic heart disease of [place]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 I25.118 Active 9877229406445 Problem Generalized anxiety disorder F41.1 Active 210813679 Problem Gastroesophageal reflux disease, esophagitis presence not specified K21.9 Active 287021859 Problem Coronary artery disease involving [place] coronary artery of round [place] 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 I25.118 Active 9527986179333 Problem Postconcussion syndrome F07.81 Active 04558030 Problem Chronic pain syndrome G89.4 Active 870831692 Problem Migraine without aura and without status migrainosus, not intractable G43.009 Active 616206243 Problem Paroxysmal atrial fibrillation I48.0 Active 758339759 Problem Migraine without aura and with status migrainosus, not intractable G43.001 Active 910894807 Problem Cervicalgia M54.2 Active 5527102698076 Problem Acute exacerbation of chronic obstructive pulmonary disease (COPD) J44.1 Active 713145359 Problem Major depressive disorder, recurrent episode, moderate F33.1 Active 598457643 Problem Crohn''s disease without complication, unspecified gastrointestinal tract location K50.90 Active 75589375 Problem Chronic fatigue R53.82 Active 26217089 Problem Bipolar affective disorder, currently depressed, moderate F31.32 Active 861021450 ALLERGIES No Information ENCOUNTERS Encounter Location Date Diagnosis [facility] [address] [facility] [id number] [address] Nov, [facility] [address], [place] [address] Nov, [facility] [id number] [address] Oct, Bipolar affective disorder, currently depressed, moderate F31.32 ; Vascular dementia without behavioral disturbance F01.50 and Generalized anxiety disorder F41.1 [place] [address], [place] [address] Oct, [facility] [address], [place] [address] Oct, [facility] [address], [place] [address] 9048 Oct, Edema of both legs R60.0 [facility] [id number] [place] [address] 71171- 1397 Oct, [facility] [address], [place] [address] 54[address] Sep, [facility] [id number] [place] [address] 36084- 1200 Sep, [facility] [address] [id number] [address] 8[address] Sep, [facility] [address] [id number] [address] 8[address] Sep, Encounter for well woman exam with routine gynecological exam Z01.419 ; Screening for STDs (sexually transmitted diseases) Z11.3 ; Screening breast examination Z12.31 and Overweight (BMI 25.0-29.9) E66.3 [facility] [address] [address] 8[address] Sep, [facility] [address], [place] [address] 3205 Sep, [facility] [address], [place] [address]- 6391 Sep, [facility] [address], [place] [address] 4644 August, [facility] [address], [place] [address] 3[address] August, [facility] [address], [place] [address] 4[address] August, Type 2 diabetes mellitus with diabetic neuropathy, without long-term current use of insulin E11.40 and Sprain of right ankle, unspecified ligament, initial encounter S93.401A [place] [id number] [place] [address] 68092- 5604 August, [facility] [id number] [place] [address] 03458- 5065 August, [facility] [address] 39414- 7634 August, [facility] [id number] [place] [address] 05952- 1177 August, Gastroesophageal reflux disease, esophagitis presence not specified K21.9 [place] [address] 84401- 5683 August, [place] [id number] [place] [address] 17185- 4752 August, [place] [id number] [place] [address] 16049- 4582 August, [facility] [id number] [place] [address] 95898- 8297 August, Type 2 diabetes mellitus with diabetic neuropathy, without long-term current use of insulin E11.40 and Elevated liver enzymes R74.8 [place] [id number] [place] [address] 41598- 1095 Jul, [place] [id number] [place] [address] 61331- 3894 Jul, Cough R05 [place] [id number] [place] [address] 69319- 8691 Jul, [place] [id number] [place] [address] 90097- 4560 Jul, [facility] [id number] [place] [address] 68707- 6500 Jul, Bipolar affective disorder, currently depressed, moderate F31.32 ; Vascular dementia without behavioral disturbance F01.50 and Generalized anxiety disorder F41.1 [facility] [id number] [place] [address] 39037- 1765 24 Jul, 2017 [facility] [id number] [place] [address] 52662- 8882 Jul, Type 2 diabetes mellitus with diabetic neuropathy, without long-term current use of insulin E11.40 and Elevated liver enzymes R74.8 [facility] [id number] [place] [address] 34300- 7192 Jul, [facility] [id number] [place] [address] 89663- 0522 Jul, [facility] [id number] [place] [address] 54082- 6784 Jul, [facility] [id number] [place] [address] 04654- 6952 Jul, Post-menopausal Z78.0 [facility] [id number] [place] [address] 08610- 1102 Jul, Stress incontinence of urine N39.3 [facility] [id number] [place] [address] 35257- 7034 Jul, [facility] [id number] [place] [address] 26326- 4285 Jul, [facility] [id number] [place] [address] 19591- 2541 Jul, Stress incontinence of urine N39.3 and Cough R05 [facility] [id number] [place] [address] 86126- 3814 Jul, [facility] [id number] [place] [address] 29557- 2038 Jul, [facility] [id number] [place] [address] 37234- 2889 Jul, [facility] [address] [place] [address] 14953- 5478 Jul, Gastroesophageal reflux disease, esophagitis presence not specified K21.9 [facility] [id number] [place] [address] Jun, Diabetic polyneuropathy associated with type 2 diabetes mellitus E11.42 [facility] [id number] [place] [address] 76968- 5986 Jun, Diabetic polyneuropathy associated with type 2 diabetes mellitus E11.42 ; Coronary artery disease involving [place] coronary artery of round [place] 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 I25.118 and Paroxysmal atrial fibrillation I48.0 [place] [id number] [place] [address] 13959- 6323 Jun, [place] [id number] [place] [address] 98254- 8299 Jun, [place] [id number] [place] [address] 66231- 6357 Jun, Gastroenteritis K52.9 [facility] [id number] [place] [address] 71179- 2132 Jun, Gastroenteritis K52.9 [facility] [id number] [place] [address] 66338- 6975 Jun, [place] [address] [place] [address] 55083- 6988 Jun, [place] [id number] [place] [address] 45524- 6914 Jun, Sprain of right ankle, unspecified ligament, initial encounter S93.401A ; Type 2 diabetes mellitus with diabetic neuropathy, without long-term current use of insulin E11.40 ; Atherosclerosis of [place] artery of both lower extremities with intermittent claudication I70.213 ; Atherosclerotic heart disease of [place]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 I25.118 ; Chronic atrial fibrillation I48.2 and Crohn''s disease without complication, unspecified gastrointestinal tract location K50.90 [facility] [id number] [place] [address] 58713 -7438 17 Jun, 2017 Cough R05 and Chronic obstructive pulmonary disease with acute lower respiratory infection J44.0 [facility] [id number] [place] [address] 61432- 8477 16 Jun, 2017 [facility] [id number] [place] [address] 40210- 8290 15 Jun, 2017 Coughing R05 ; Unspecified atherosclerosis of [place] arteries of extremities, unspecified extremity I70.209 ; Type 2 diabetes mellitus with diabetic peripheral angiopathy without gangrene E11.51 ; Crohn''s disease without complication, unspecified gastrointestinal tract location K50.90 ; Other chronic pancreatitis K86.1 and Chronic atrial fibrillation I48.2 [facility] [id number] [place] [address] 54121 -5953 Jun, [facility] [id number] [place] [address] 16635- 9778 Jun, Bipolar affective disorder, currently depressed, moderate F31.32 ; Vascular dementia without behavioral disturbance F01.50 and Generalized anxiety disorder F41.1 [place] [id number] [place] [address] 89261- 4244 May, Generalized anxiety disorder F41.1 [facility] [id number] [place] [address] 36585- 9453 May, [facility] [id number] [place] [address] 72803- 6939 May, [facility] [id number] [place] [address] 59335- 3926 15 May, 2017 Coughing R05 [facility] [id number] [place] [address] 40292- 2432 09 May, 2017 [facility] [id number] [place] [address] 96660- 8620 May, Bipolar affective disorder, currently depressed, moderate F31.32 ; Vascular dementia without behavioral disturbance F01.50 and Generalized anxiety disorder F41.1 [facility] [id number] [place] [address] 25571- 8839 Apr, Generalized anxiety disorder F41.1 [facility] [id number] [place] [address] 48820- 6783 Apr, [place] [address] 88737- 3192 Apr, Vascular dementia without behavioral disturbance F01.50 ; Generalized anxiety disorder F41.1 and Bipolar affective disorder, currently depressed, moderate F31.32 [place] [address] 81997- 5497 Apr, Generalized anxiety disorder F41.1 [facility] [address] 14429 -9376 Apr, Cough R05 and Acute exacerbation of chronic obstructive pulmonary disease (COPD) J44.1 [place] [address] 75530- 3365 Apr, [facility] [id number] [place] [address] 67280 -2585 Mar, Cough R05 and Cigarette nicotine dependence without complication F17.210 [place] [id number] [place] [address] 30529- 4054 Mar, [place] [address] 64133- 5436 Feb, Generalized anxiety disorder F41.1 ; Major depressive disorder, recurrent episode, moderate F33.1 ; Vascular dementia without behavioral disturbance F01.50 and Unspecified psychosis F29 [place] [id number] [place] [address] 08250- 6296 Feb, [place] [id number] [place] [address] 51295- 0772 Feb, [place] [address] 88948- 5160 Feb, Generalized anxiety disorder F41.1 [place] [id number] [place] [address] 61777- 8584 Feb, Generalized anxiety disorder F41.1 [place] [id number] [place] [address] 41680- 0673 Feb, Dizziness R42 ; Chronic fatigue R53.82 ; Postconcussion syndrome F07.81 ; Fall, initial encounter W19.XXXA and Disorientation R41.0 [place] [id number] [place] [address] 46534- 0312 Feb, Postconcussion syndrome F07.81 ; Injury of head, initial encounter S09.90XA ; Fall, initial encounter W19.XXXA ; Disorientation R41.0 and Acute cystitis with hematuria N30.01 [place] [id number] [place] [address] 77774- 3882 Jan, Gastroesophageal reflux disease, esophagitis presence not specified K21.9 ; Post-menopausal Z78.0 and Migraine without aura and without status migrainosus, not intractable G43.009 [place] [id number] [place] [address] 29288- 6037 Jan, [place] [id number] [place] [address] 88105- 9673 Jan, Generalized anxiety disorder F41.1 ; Major depressive disorder, recurrent episode, moderate F33.1 ; Vascular dementia without behavioral disturbance F01.50 and Unspecified psychosis F29 [place] [address] [place] [address] 00966- 7701 Jan, Pneumonia of left lower lobe due to infectious organism J18.1 [place] [id number] [place] [address] 45555- 1736 Jan, Migraine without aura and with status migrainosus, not intractable G43.001 [facility] [id number] [place] [address] 81899 -4075 Jan, Migraine without aura and without status migrainosus, not intractable G43.009 [facility] [id number] [place] [address] 11957- 3772 Dec, Hematoma T14.8 [facility] [id number] [place] [address] 78186- 4986 Dec, [facility] [id number] [place] [address] 08324 -8375 Nov, Fatigue, unspecified type R53.83 [facility] [id number] [place] [address] 41000- 3966 Nov, Scabies B86 and Coronary artery disease involving round [place] coronary artery of round [place] 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 I25.118 [facility] [id number] [place] [address] 35549- 0263 Nov, [facility] [id number] [place] [address] 11128- 0239 Nov, [facility] [id number] [place] [address] 36380- 8470 Oct, [facility] [id number] [place] [address] 07763- 7123 Oct, Generalized anxiety disorder F41.1 and Major depressive disorder, recurrent episode, moderate F33.1 [facility] [address] [place] [address] 50423- 4220 Oct, Cramp of both lower extremities R25.2 [facility] [id number] [place] [address] 50684- 4820 Oct, Leg cramps R25.2 [facility] [id number] [place] [address] 49363- 7754 Oct, Chronic pain syndrome G89.4 [facility] [id number] [place] [address] 81276- 7245 Oct, [facility] [address] [address]- 9746 14 Oct, 2016 [facility] [address] [place] [address] 77095- 3511 11 Oct, 2016 Routine gynecological examination Z01.419 and Screening for breast cancer Z12.31 [place] [address] [place] [address] 73174- 6068 28 Sep, 2016 Diarrhea R19.7 [facility] [id number] [place] [address] 11848- 4774 26 Sep, 2016 Back pain M54.9 [place] [id number] [place] [address] 82491- 4761 Sep, [place] [id number] [place] [address] 45716- 7637 Sep, [facility] [place] [id number] [place] [address] 12101 -6950 August, Xeroderma Q80.9 [place] [id number] [place] [address] 85936- 7409 August, Dementia without behavioral disturbance, unspecified dementia type F03.90 [place] [id number] [place] [address] 86447- 8630 August, Chronic pain syndrome G89.4 [place] [id number] [place] [address] 96608- 4639 August, [place] [id number] [place] [address] 42981- 0026 August, Hyperlipidemia E78.5 ; Other fatigue R53.83 and Other specified hypotension I95.89 [facility] [id number] [place] [address] 82809 -2024 August, Dysuria R30.0 ; Other fatigue R53.83 and Other specified hypotension I95.89 [place] [id number] [place] [address] 97518- 0783 August, [place] [id number] [place] [address] 26087- 6747 Jul, Pain in left knee M25.562 and Gastroenteritis K52.9 [place] [address] 76237- 4253 Jul, [place] [address] 45414- 0229 Jul, Diarrhea R19.7 [facility] [address] 81218 -8951 Jul, Spider bite, accidental or unintentional, initial encounter T63.301A [place] [address] 08248- 3417 Jul, Primary osteoarthritis of right knee M17.11 and Arthritis M19.90 [place] [address] 72128- 7482 Jul, Generalized anxiety disorder F41.1 and Major depressive disorder, recurrent episode, moderate F33.1 [place] [address] 10811- 4433 Jul, Type 2 diabetes mellitus with diabetic polyneuropathy E11.42 and Temporal headache R51 [place] [id number] [place] [address] 88232- 6817 Jul, Back pain M54.9 [place] [address] 34800- 4031 Jul, [place] [id number] [place] [address] 33979- 1896 Jul, [place] [address] 94393- 4932 Jun, Nausea R11.0 [facility] [id number] [place] [address] 90072 -3400 Jun, Acute suppurative otitis media of both ears without spontaneous rupture of tympanic membranes, recurrence not specified H66.003 and COPD exacerbation J44.1 [place] [id number] [place] [address] 13384- 9259 Jun, Generalized anxiety disorder F41.1 [place] [id number] [place] [address] 88099- 7925 16 Jun, 2016 [facility] [address] 21438 -1737 Jun, [facility] [address] 03788 -6624 Jun, Shortness of breath R06.02 and COPD exacerbation J44.1 [place] [address] 51800- 9100 10 Jun, 2016 Eczema, unspecified type L30.9 [place] [address] 09270- 8990 Jun, [place] [address] 85802- 9728 May, [place] [address] 24044- 8082 May, Muscle cramping R25.2 [facility] [id number] [place] [address] 57123- 5493 May, [place] [address] 56431- 5703 Apr, Diarrhea R19.7 [place] [id number] [place] [address] 53130- 4501 Apr, [place] [address] 08050- 9736 Apr, Chronic pain syndrome G89.4 [facility] [place] [id number] [place] [address] 20792- 2853 Apr, Cramp of both lower extremities R25.2 and Vascular dementia without behavioral disturbance F01.50 [place] [address] 02590- 0292 Apr, Type 2 diabetes mellitus with diabetic polyneuropathy E11.42 and Cigarette nicotine dependence without complication F17.210 [place] [address] 32154- 3033 Mar, Generalized anxiety disorder F41.1 [place] [address] 13767- 8480 Feb, Generalized anxiety disorder F41.1 and Major depressive disorder, recurrent episode, moderate F33.1 [place] [address] 61640- 3573 Feb, [facility] [address] 68979 -3194 Feb, Dysuria R30.0 and Acute cystitis with hematuria N30.01 [place] [address] 97260- 8669 Jan, [place] [address] 77291- 8953 Jan, [place] [address] 81071- 7494 Jan, [place] [address] 52860- 9516 Jan, [facility] [address] 60947 -3563 Jan, Wasp sting, accidental or unintentional, initial encounter T63.461A [place] [address] 60454- 8727 06 Jan, 2016 Encounter for immunization Z23 [place] [address] 60688- 7219 Jan, [place] [address] 29420- 4454 Jan, [facility] [address] [place] [address] 30538- 7045 28 Dec, 2015 Generalized anxiety disorder F41.1 and Major depressive disorder, recurrent episode, moderate F33.1 [facility] [id number] [address] 2534 21 Dec, 2015 Routine gynecological examination Z01.419 ; Postmenopausal Z78.0 ; Screening breast examination Z12.39 ; Osteopenia M85.80 and Breast cancer screening Z12.39 [facility] [id number] [place] [address] 26873- 0564 20 Dec, 2015 [facility] [id number] [place] [address] 56808- 6496 19 Dec, 2015 [facility] [id number] [place] [address] 31130- 7862 16 Dec, 2015 [facility] [id number] [place] [address] 19006- 3747 16 Dec, 2015 [facility] [id number] [place] [address] 84663- 2561 14 Dec, 2015 [facility] [id number] [place] [address] 76402- 1617 06 Dec, 2015 [facility] [id number] [place] [address] 98120- 6609 Nov, [facility] [id number] [place] [address] 47196 -6809 Nov, Cough R05 ; Other viral agents as the cause of diseases classified elsewhere B97.89 and Acute upper respiratory infection, unspecified J06.9 [facility] [id number] [place] [address] 19167- 8574 Nov, [facility] [id number] [place] [address] 70795- 9030 Nov, [facility] [id number] [place] [address] 61069- 9943 Nov, [facility] [address], [place] [address]- 8446 Nov, [facility] [address], [place] [address]- 6327 Nov, [facility] [address], [place] [address]- 3926 Oct, [facility] [id number] [place] [address] 21071- 6784 Oct, [facility] [id number] [place] [address] 16899- 9254 Oct, [facility] [id number] [place] [address] 43451- 4708 Oct, Chronic pain syndrome G89.4 [facility] [id number] [place] [address] 45155- 7757 Sep, Generalized anxiety disorder F41.1 and Major depressive disorder, recurrent episode, moderate F33.1 [facility] [address], [place] [address] 5840 Sep, [facility] [address], [place] [address]- 6605 Sep, [facility] [address], [place] [address]- 7469 Sep, Generalized anxiety disorder F41.1 [facility] [address], [place] [address]- 1886 13 Sep, 2015 Cramp of both lower extremities R25.2 and Cervicalgia M54.2 [facility] [address], [place] [address]- 1265 06 Sep, 2015 Generalized anxiety disorder F41.1 [facility] [address], [place] [address]- 9132 Sep, [facility] [id number] [place] [address] 52625 -3542 August, Rash R21 ; Itching L29.9 and Allergic response, subsequent encounter T78.40[facility]D [facility] [id number] [place] [address] 73514- 6272 August, Primary insomnia F51.01 [facility] [id number] [place] [address] 85775 -2358 August, Rash R21 ; Itching L29.9 and Allergic response, initial encounter T78.40XA [facility] [id number] [place] [address] 89951- 5461 August, [facility] [id number] [place] [address] 59920- 4298 August, Cramp of both lower extremities R25.2 [facility] [id number] [place] [address] 01601- 2150 August, Back pain M54.9 [facility] [id number] [place] [address] 92884- 1686 August, [facility] [id number] [place] [address] 37835- 2881 August, [facility] [id number] [place] [address] 42982 -0231 August, Cramp of both lower extremities R25.2 [facility] [id number] [place] [address] 00904- 7012 August, [facility] [id number] [place] [address] 26939- 2185 August, Syncope R55 ; Paroxysmal atrial fibrillation I48.0 ; Dementia without behavioral disturbance, unspecified dementia type F03.90 and Chronic pain syndrome G89.4 [facility] [id number] [place] [address] 47317- 0786 August, Type 2 diabetes mellitus with diabetic polyneuropathy E11.42 and Syncope R55 [facility] [address] [facility] [id number] [address] 5957 Jul, [facility] [address] [facility] [id number] [place] [address] 36842- 2146 Jul, [facility] [address], [place] [address] 2542 Jul, [facility] [id number] [place] [address] 50532 2544 Jul, [facility] [address] [facility] [id number], [place] [address]- 1644 Jul, [facility] [id number] [place] [address] 20403- 6794 Jul, UTI (urinary tract infection) N39.0 [facility] [id number] [place] [address] 50557- 1403 Jul, [facility] [address], [place] [address]- 9298 18 Jul, 2015 Major depressive disorder, recurrent episode, moderate F33.1 and Generalized anxiety disorder F41.1 [facility] [address], [place] [address]- 4798 Jul, Generalized anxiety disorder F41.1 [facility] [address], [place] [address] 2541 Jul, Diarrhea R19.7 [facility] [address], [place] [address] 2549 Jul, [facility] [address], [place] [address]- 8530 Jun, [facility] [address], [place] [address]- 9208 Jun, Eczema L30.9 [facility] [address], [place] [address]- 2195 Jun, [facility] [address], [place] [address]- 1244 Jun, COPD (chronic obstructive pulmonary disease) J44.9 [facility] [address], [place] [address]- 0525 Jun, [facility] [address], [place] [address]- 1201 Jun, Major depressive disorder, recurrent episode, moderate F33.1 and Generalized anxiety disorder F41.1 [facility] [address], [place] [address]- 0597 May, [facility] [address], [place] [address]- 4695 May, UTI (urinary tract infection) N39.0 [facility] [address], [place] [address]- 9876 May, [facility] [address], [place] [address]- 3818 May, [facility] [address], [place] [address]- 4783 May, [facility] [address], [place] [address]- 0323 May, [facility] [address], [place] [address]- 6180 Apr, Major depressive disorder, recurrent episode, moderate F33.1 and Generalized anxiety disorder F41.1 [facility] [address], [place] [address]- 4771 Apr, COPD (chronic obstructive pulmonary disease) J44.9 [facility] [address], [place] [address]- 0720 Apr, [facility] [id number], [place] [address]- 0067 Apr, Atrial flutter I48.92 [facility] [address], [place] [address]- 3824 Apr, [facility] [id number] [place] [address] 30685- 2717 Apr, [facility] [id number] [place] [address] 94226- 3446 Mar, [facility] [id number] [place] [address] 28582- 2257 Mar, [facility] [id number] [place] [address] 98268- 9577 Mar, [facility] [id number] [place] [address] 52660- 3611 Mar, Hyperlipidemia E78.5 ; Type 2 diabetes mellitus with diabetic polyneuropathy E11.42 ; Major depressive disorder, recurrent episode, moderate F33.1 and Chronic pain syndrome G89.4 [facility] [id number] [place] [address] 79624- 3254 Mar, [facility] [id number] [place] [address] 29942- 1816 Mar, [facility] [id number] [place] [address] 01798- 4229 Mar, [facility] [id number] [place] [address] 67980- 0562 Mar, [facility] [id number] [place] [address] 27814- 9432 Feb, COPD (chronic obstructive pulmonary disease) J44.9 and Back pain M54.9 [facility] [id number] [place] [address] 09126- 0943 Feb, [facility] [id number] [place] [address] 12416- 7394 Feb, [facility] [id number] [place] [address] 74986- 0902 Feb, [facility] [address], [place] [address]- 5001 Feb, [facility] [id number] [place] [address] 44956- 7562 Feb, [facility] [address], [place] [address]- 0509 Feb, [facility] [id number] [place] [address] 96182- 3116 Feb, [facility] [id number] [place] [address] 29598- 5546 Feb, [facility] [id number] [place] [address] 52633- 1734 Feb, Diabetes E11.9 ; Back pain M54.9 and COPD (chronic obstructive pulmonary disease) J44.9 [facility] [id number] [place] [address] 43895- 6186 Jan, [facility] [id number] [place] [address] 93025- 9291 Jan, Major depression, recurrent F33.9 and Generalized anxiety disorder F41.1 [facility] [id number] [place] [address] 06113- 6556 Jan, Chronic pain G89.29 [facility] [id number] [place] [address] 90476- 4201 Jan, [facility] [id number] [place] [address] 04665- 0880 Jan, [facility] [id number] [place] [address] 96530- 3298 Jan, [facility] [id number] [place] [address] 99653- 5579 Jan, [facility] [id number] [place] [address] 50738- 3228 Jan, Nicotine dependence F17.200 [facility] [id number] [place] [address] 12878- 3118 Jan, Nicotine dependence F17.200 and Back pain M54.9 [facility] [id number] [place] [address] 85903- 8815 Jan, [facility] [id number] [place] [address] 70563- 8571 28 Dec, 2014 [facility] [address] 51618- 4337 25 Dec, 2014 Anxiety, generalized 300.02 and Major depression, recurrent 296.30 [facility] [address] 02045- 2083 24 Dec, 2014 [facility] [id number] [place] [address] 87128- 3644 21 Dec, 2014 [facility] [id number] [place] [address] 46511- 9155 17 Dec, 2014 [facility] [id number] [place] [address] 32627- 5224 15 Dec, 2014 [facility] [id number] [place] [address] 69758- 9722 14 Dec, 2014 [facility] [id number] [place] [address] 45820- 9381 11 Dec, 2014 [facility] [id number] [place] [address] 14683- 2288 10 Dec, 2014 [facility] [id number] [place] [address] 86713- 0706 08 Dec, 2014 Skin tear 879.8 [facility] [id number] [place] [address] 17331- 5112 08 Dec, 2014 Routine gynecological examination V72.31 ; Breast cancer screening V76.10 and Family history of breast cancer in first degree relative V16.3 [facility] [id number] [place] [address] 16419- 2741 Dec, [facility] [id number] [place] [address] 93811- 7999 Dec, [facility] [id number] [place] [address] 77806- 0456 Nov, [facility] [id number] [place] [address] 96120- 0321 Nov, [facility] [id number] [place] [address] 96532- 7268 Nov, Poor balance 781.99 and Vascular dementia, uncomplicated 290.40 [facility] [address] 76986- 6908 Nov, [facility] [id number] [place] [address] 05088- 4221 Nov, Major depression, recurrent 296.30 and Anxiety, generalized 300.02 [facility] [id number] [place] [address] 83230- 3040 Nov, [facility] [id number] [place] [address] 13707- 2286 Nov, [facility] [id number] [place] [address] 83489- 8875 Nov, [facility] [id number] [place] [address] 34005- 1566 Nov, [facility] [id number] [place] [address] 44845- 7148 Nov, Vascular dementia, uncomplicated 290.40 and Lumbago 724.2 [facility] [id number] [place] [address] 57947- 8946 Nov, [facility] [id number] [place] [address] 02298- 5945 Nov, [facility] [id number] [place] [address] 36046- 1699 Nov, [facility] [address], [place] [address]- 0229 Oct, [facility] [id number] [place] [address] 19548- 9939 Oct, [facility] [address], [place] [address]- 9049 Oct, [facility] [id number] [place] [address] 18581- 7980 Oct, COPD (chronic obstructive pulmonary disease) 496 and Hyperlipidemia 272.4 [facility] [id number] [place] [address] 81168- 5131 Oct, Major depression, recurrent 296.30 and Anxiety, generalized 300.02 [facility] [id number], [place] [address]- 2870 Oct, [facility] [id number] [place] [address] 76738- 5131 Oct, [facility] [id number], [place] [address]- 6274 Oct, [facility] [id number] [place] [address] 70113- 3931 Sep, Lumbago 724.2 and Anxiety state, unspecified 300.00 [facility] [address], [place] [address]- 0812 Sep, [facility] [address], [place] [address]- 1463 Sep, [facility] [address], [place] [address]- 7657 August, [facility] [id number] [address]- 2169 August, Major depression, recurrent 296.30 ; Anxiety, generalized 300.02 and No condition on [place] II V71.09 [facility] [id number] [address]- 5091 August, [facility] [place] [facility] [address] [id number] [place] [address]- 5602 August, [facility] [place] [facility] [address] [id number] [place] [address]- 8184 29 Jul, 2014 [facility] [place] [facility] [address] [id number] [place] [address]- 7456 14 Jul, 2014 [facility] [place] [facility] [address] [id number] [place] [address]- 9906 Jul, [facility] [place] [facility] [address] [id number] [place] [address]- 5584 30 Jun, 2014 [facility] [place] [facility] [address] [id number] [place] [address]- 0312 30 Jun, 2014 [facility] [place] [facility] [address] [id number] [place] [address]- 9391 Jun, [facility] [place] [facility] [address] [id number] [place] [address]- 2435 27 Jun, 2014 [facility] [place] [facility] [address] [id number] [place] [address]- 6454 26 Jun, 2014 [facility] [place] [facility] [address] [id number] [place] [address]- 1739 Jun, [facility] [place] [facility] [address] [id number] [place] [address]- 8733 23 Jun, 2014 [facility] [place] [facility] [address] [id number] [place] [address]- 9001 17 Jun, 2014 [facility] [place] [facility] [address] [id number] [place] [address]- 0207 13 Jun, 2014 [facility] [place] [facility] [address] [id number] [place] [address]- 3374 13 Jun, 2014 [facility] [place] [facility] [address] [id number] [place] [address]- 5617 10 Jun, 2014 [facility] [place] [facility] [address] [id number] [place] [address]- 3960 10 Jun, 2014 [facility] [place] [facility] [address] [id number] [place] [address]- 1502 Jun, 2014 [facility] [place] [facility] [address] [id number] [place] [address]- 5777 Jun, 2014 [facility] [place] [facility] [address] [id number] [place] [address]- 3425 Jun, 2014 [facility] [place] [facility] [address] [id number] [place] [address]- 4727 Jun, 2014 [facility] [place] [facility] [address] [id number] [place] [address]- 7896 May, 2014 [facility] [place] [facility] [address] [id number] [place] [address]- 9695 May, 2014 [facility] [place] [facility] [address] [id number] [place] [address]- 0672 May, 2014 [facility] [place] [facility] [address] [id number] [place] [address]- 1184 May, 2014 [facility] [place] [facility] [address] [id number] [place] [address]- 0950 May, 2014 [facility] [place] [facility] [address] [id number] [place] [address]- 4399 May, 2014 [facility] [place] [facility] [address] [id number] [place] [address]- 8534 May, 2014 [facility] [place] [facility] [address] [id number] [place] [address]- 6767 May, 2014 [facility] [place] [facility] [address] [id number] [place] [address]- 2416 May, 2014 [facility] [place] [facility] [address] [facility] [id number] [place] [address]- 2075 May, 2014 [facility] [place] [facility] [address] [id number] [place] [address]- 5350 May, [facility] [place] [facility] [address] [id number] [place] [address]- 8086 May, [facility] [place] [facility] [address] [id number] [place] [address]- 4586 May, [facility] [place] [facility] [address] [id number] [place] [address]- 6736 May, [facility] [place] [facility] [address] [id number] [place] [address]- 5926 Apr, [facility] [place] [facility] [address] [id number] [place] [address]- 9423 Apr, [facility] [place] [facility] [address] [id number] [place] [address]- 2231 Apr, [facility] [place] [facility] [address] [id number] [place] [address]- 1711 Apr, [facility] [place] [facility] [address] [id number] [place] [address]- 8505 Apr, [facility] [place] [facility] [address] [id number] [place] [address]- 3583 Apr, [facility] [place] [facility] [address] [id number] [place] [address]- 7896 Apr, [facility] [place] [facility] [address] [id number] [place] [address]- 4561 Apr, [facility] [place] [facility] [address] [id number] [place] [address]- 9829 Apr, [facility] [place] [facility] [address] [id number] [place] [address] Apr, [facility] [place] [facility] [address] [id number] [place] [address] Apr, [facility] [place] [facility] [address] [id number] [place] [address] Apr, [facility] [place] [facility] [address] [id number] [place] [address] 31 Mar, 2014 [facility] [place] [facility] [address] [id number] [place] [address] Mar, [facility] [place] [facility] [address] [id number] [place] [address] 30 Mar, 2014 [facility] [place] [facility] [address] [id number] [place] [address] 30 Mar, 2014 [facility] [place] [facility] [address] [id number] [place] [address] Mar, [facility] [place] [facility] [address] [id number] [place] [address] Mar, [facility] [place] [facility] [address] [id number] [place] [address] Mar, [facility] [place] [facility] [address] [id number] [place] [address] Mar, [facility] [place] [facility] [address] [id number] [place] [address] 15 Mar, 2014 [facility] [place] [facility] [address] [id number] [place] [address] 15 Mar, 2014 [facility] [place] [facility] [address] [id number] [place] [address] 15 Mar, 2014 [facility] [place] [facility] [address] [id number] [place] [address] 15 Mar, 2014 [facility] [place] [facility] [address] [id number] [place] [address] 15 Mar, 2014 [facility] [place] [facility] [address] [id number] [place] [address] 15 Mar, 2014 [facility] [place] [facility] [address] [id number] [place] [address] 08 Mar, 2014 [facility] [place] [facility] [address] [id number] [place] [address] Mar, [facility] [place] [facility] [address] [id number] [place] [address] Mar, [facility] [place] [facility] [address] [id number] [place] [address] Mar, [facility] [place] [facility] [address] [id number] [place] [address] Mar, [facility] [place] [facility] [address] [id number] [place] [address] Mar, [facility] [place] [facility] [address] [id number] [place] [address] Feb, [facility] [place] [facility] [address] [id number] [place] [address] Feb, [facility] [place] [facility] [address] [id number] [place] [address] Feb, [facility] [place] [facility] [address] [id number] [place] [address] Feb, [facility] [place] [facility] [address] [id number] [place] [address] Feb, [facility] [place] [facility] [address] [id number] [place] [address] Feb, [facility] [place] [facility] [address] [id number] [place] [address] Feb, [facility] [place] [facility] [address] [id number], [place] [address] Feb, [facility] [place] [facility] [address] [id number] [place] [address] Feb, [facility] [place] [facility] [address] [id number] [place] [address] 69[address] Feb, [facility] [place] [facility] [address] [id number], [place] [address] Feb, [facility] [place] [facility] [address] [id number] [place] [address] 07 Feb, 2014 [facility] [place] [facility] [address] [id number] [place] [address] Feb, [facility] [place] [facility] [address] [id number] [place] [address] Feb, [facility] [place] [facility] [address] [id number] [place] [address] Feb, [facility] [place] [facility] [address] [id number] [place] [address] Feb, [facility] [place] [facility] [address] [id number] [place] [address] Feb, [facility] [place] [facility] [address] [id number] [place] [address] Jan, [facility] [place] [facility] [address] [id number] [place] [address] Jan, [facility] [place] [facility] [address] [id number] [place] [address] Jan, [facility] [place] [facility] [address] [id number] [place] [address] Jan, [facility] [place] [facility] [address] [id number] [place] [address] 5414 Jan, [facility] [place] [facility] [address] [id number] [place] [address] 5285 Jan, [facility] [place] [facility] [address] [id number] [place] [address] 4761 Jan, [facility] [place] [facility] [address] [id number] [place] Jan, [facility] [place] [facility] [address] [id number] [place] [address] Jan, [facility] [place] [facility] [address] [id number] [place] [address]- 5406 Jan, [facility] [place] [facility] [address] [id number] [place] [address] 0636 Jan, [facility] [place] [facility] [address] [id number] [place] [address] 5271 Dec, [facility] [place] [facility] [address] [id number] [place] [address]- 5680 Dec, [facility] [place] [facility] [address] [id number] [place] [address] 3505 Nov, [facility] [place] [facility] [address] [id number] [place] [address]- 8624 Nov, [facility] [place] [facility] [address] [id number] [place] [address] 3832 Nov, [facility] [place] [facility] [address] [id number] [place] [address]- 7099 Nov, [facility] [place] [facility] [address] [id number] [place] [address]- 7376 Nov, [facility] [place] [facility] [address] [id number] [place] [address]- 0495 Nov, [facility] [place] [facility] [address] [id number] [place] [address]- 2106 Nov, [facility] [place] [facility] [address] [id number], [place] [address] 2263 Oct, [facility] [place] [facility] [address] [id number], [place] [address] 2814 Oct, [facility] [place] [facility] [address] [id number] [place] [address]- 1341 Oct, [facility] [place] [facility] [address] [id number], [place] [address] 1632 Oct, [facility] [place] [facility] [address] [id number] [place] [address]- 0478 Sep, [facility] [place] [facility] [address] [id number] [place] [address]- 3372 Sep, [facility] [place] [facility] [address] [id number] [place] [address]- 5877 Sep, [facility] [place] [facility] [address] [id number] [place] [address]- 1254 Sep, [facility] [place] [facility] [address] [id number] [place] [address]- 1235 Sep, [facility] [place] [facility] [address] [id number] [place] [address]- 3236 Sep, [facility] [place] [facility] [address] [id number] [place] [address]- 2969 Sep, [facility] [place] [facility] [address] [id number] [place] [address]- 8645 Sep, [facility] [place] [facility] [address] [id number] [place] [address]- 4654 Sep, [facility] [place] [facility] [address] [id number] [place] [address]- 9580 Sep, [facility] [place] [facility] [address] [id number] [place] [address] 4963 Sep, [facility] [place] [facility] [address] [id number] [place] [address]- 2381 Sep, [facility] [place] [facility] [address] [id number] [place] [address]- 9319 Sep, [facility] [place] [facility] [address] [id number] [place] [address]- 9845 Sep, [facility] [place] [facility] [address] [id number] [place] [address]- 3658 August, [facility] [place] [facility] [address] [id number] [place] [address]- 4064 August, [facility] [place] [facility] [address] [id number] [place] [address]- 6628 August, [facility] [place] [facility] [address] [id number] [place] [address] 8304 August, [facility] [address] [id number] [place] [address] 7815 August, [facility] [address] [id number] [place] [address]- 5102 August, [facility] [address] [id number] [place] [address]- 6257 August, [facility] [address] [id number] [place] [address] 1902 August, [facility] [address] [id number] [place] [address]- 8634 August, [facility] [address] [id number] [place] [address]- 8946 August, [facility] [address] [id number] [place] [address]- 4655 August, [facility] [address] [id number] [place] [address]- 4784 August, [facility] [address] [id number] [place] [address]- 3419 August, [facility] [address] [id number] [place] [address]- 5797 August, [facility] [place] [facility] [address] [id number] [place] [address]- 0820 August, [facility] [place] [facility] [address] [id number] [place] [address]- 4352 August, [facility] [place] [facility] [address] [id number] [place] [address] 1949 August, [facility] [address] [id number] [place] [address]- 5268 August, [facility] [place] [facility] [address] [id number] [place] [address]- 7194 August, [facility] [place] [facility] [address] [id number] [place] [address]- 4672 Jul, [facility] [place] [facility] [address] [id number] [place] [address]- 4248 Jul, [facility] [place] [facility] [address] [id number] [place] [address]- 0759 Jul, [facility] [place] [facility] [address] [id number] [place] [address]- 0843 Jul, [facility] [place] [facility] [address] [id number] [place] [address]- 0504 Jun, [facility] [place] [facility] [address] [id number] [place] [address]- 6880 Jun, [facility] [place] [facility] [address] [id number] [place] [address]- 4613 Jun, [facility] [place] [facility] [address] [id number] [place] [address]- 2429 Jun, [facility] [place] [facility] [address] [id number] [place] [address]- 2636 Jun, [facility] [place] [facility] [address] [id number] [place] [address]- 6588 Jun, [facility] [place] [facility] [address] [id number] [place] [address]- 0397 Jun, [facility] [place] [facility] [address] [id number] [place] [address]- 8928 Jun, [facility] [place] [facility] [address] [id number] [place] [address] Jun, [facility] [place] [facility] [address] [id number] [place] [address]- 5089 Jun, [facility] [place] [facility] [address] [id number] [place] [address] May, [facility] [place] [facility] [address] [id number] [place] [address]- 2528 May, [facility] [place] [facility] [address] [id number] [place] [address]- 1666 May, [facility] [place] [facility] [address] [id number] [place] [address]- 2546 May, [facility] [place] [facility] [address] [id number] [place] [address] 2546 May, 2013 [facility] [place] [facility] [address] [id number] [place] [address]- 2541 May, [facility] [place] [facility] [address] [id number] [place] [address]- 3336 20 May, 2013 [facility] [place] [facility] [address] [facility] [id number] [place] [address]- 9566 May, [facility] [place] [facility] [address] [id number] [place] [address]- 9108 May, [facility] [place] [facility] [address] [id number] [place] [address]- 4190 18 May, 2013 [facility] [place] [facility] [address] [facility] [id number] [place] [address]- 3596 18 May, 2013 [facility] [place] [facility] [address] [facility] [id number] [place] [address]- 4019 17 May, 2013 [facility] [place] [facility] [address] [id number] [place] [address]- 5293 May, [facility] [place] [facility] [address] [id number] [place] [address]- 2546 11 May, 2013 [facility] [place] [facility] [address] [id number] [place] [address]- 4564 10 May, 2013 [facility] [place] [facility] [address] [facility] [id number] [place] [address]- 2546 07 May, 2013 [facility] [place] [facility] [address] [id number] [place] [address]- 4401 07 May, 2013 [facility] [address] [id number] [place] [address]- 6596 Apr, [facility] [address] [id number] [place] [address]- 7386 15 Apr, 2013 [facility] [address] [id number] [place] [address]- 8718 Apr, [facility] [address] [id number] [place] [address]- 6019 Apr, [facility] [address] [id number] [place] [address]- 8321 Apr, [facility] [address] [id number] [place] [address]- 3321 Apr, [facility] [address] [id number] [place] [address]- 3023 Apr, [facility] [address] [id number] [place] [address]- 0929 Mar, [facility] [address] [id number] [place] [address]- 7875 Mar, [facility] [address] [facility] [id number] [place] [address]- 1286 Mar, [facility] [address] [id number] [place] [address]- 4896 Mar, [facility] [address] [id number] [place] [address]- 7888 Mar, [facility] [address] [id number] [place] [address]- 4325 Mar, [facility] [address] [id number] [place] [address]- 0266 Mar, [facility] [address] [id number] [place] [address]- 5408 Mar, [facility] [place] [facility] [address] [id number] [place] [address]- 0164 04 Mar, 2013 [facility] [place] [facility] [address] [id number] [place] [address]- 5087 Mar, [facility] [place] [facility] [address] [id number] [place] [address]- 9473 Mar, [facility] [place] [facility] [address] [id number] [place] [address]- 1250 Feb, [facility] [place] [facility] [address] [id number] [place] [address]- 9023 Feb, [facility] [place] [facility] [address] [id number] [place] [address]- 9427 Feb, [facility] [place] [facility] [address] [id number] [place] [address]- 3784 Feb, [facility] [place] [facility] [address] [id number] [place] [address]- 3029 Feb, [facility] [place] [facility] [address] [id number] [place] [address]- 7271 19 Feb, 2013 [facility] [place] [facility] [address] [id number], [place] [address]- 1784 15 Feb, 2013 [facility] [place] [facility] [address] [id number] [place] [address]- 5812 14 Feb, 2013 [facility] [place] [facility] [address] [id number], [place] [address]- 2706 14 Feb, 2013 [facility] [place] [facility] [address] [id number] [place] [address]- 3836 13 Feb, 2013 [facility] [place] [facility] [address] [id number], [place] [address]- 9185 13 Feb, 2013 [facility] [place] [facility] [address] [id number], [place] [address]- 8066 12 Feb, 2013 [facility] [place] [facility] [address] [id number], [place] [address]- 9705 Feb, [facility] [place] [facility] [address] [id number] [place] [address]- 0377 Feb, [facility] [place] [facility] [address] [id number], [place] [address]- 1153 Feb, [facility] [place] [facility] [address] [id number] [place] [address]- 4461 Feb, [facility] [place] [facility] [address] [id number] [place] [address]- 5451 Jan, [facility] [place] [facility] [address] [id number] [place] [address]- 5826 Jan, [facility] [place] [facility] [address] [id number] [place] [address]- 5394 Jan, [facility] [place] [facility] [address] [id number] [place] [address]- 8187 Jan, [facility] [place] [facility] [address] [id number] [place] [address]- 5686 Jan, [facility] [place] [facility] [address] [id number] [place] [address]- 9003 Jan, [facility] [place] [facility] [address] [id number] [place] [address]- 7418 Jan, [facility] [place] [facility] [address] [id number], [place] [address]- 1414 Jan, [facility] [place] [facility] [address] [id number], [place] [address]- 5445 10 Jan, 2013 [facility] [place] [facility] [address] [id number] [place] [address]- 2477 27 Dec, 2012 [facility] [place] [facility] [address] [id number] [place] [address]- 5486 20 Dec, 2012 [facility] [place] [facility] [address] [id number] [place] [address]- 2083 19 Dec, 2012 [facility] [place] [facility] [address] [id number] [place] [address]- 3978 10 Dec, 2012 [facility] [place] [facility] [address] [id number] [place] [address]- 4058 04 Dec, 2012 [facility] [place] [facility] [address] [id number] [place] [address]- 9476 Dec, [facility] [place] [facility] [address] [id number] [place] [address]- 0249 Nov, [facility] [place] [facility] [address] [id number] [place] [address]- 7944 Nov, [facility] [place] [facility] [address] [id number] [place] [address]- 3609 Nov, [facility] [place] [facility] [address] [id number] [place] [address]- 5695 Nov, [facility] [place] [facility] [address] [id number] [place] [address]- 1321 Nov, [facility] [place] [facility] [address] [id number] [place] [address]- 8767 Nov, [facility] [place] [facility] [address] [id number] [place] [address]- 9940 Nov, [facility] [place] [facility] [address] [id number] [place] [address]- 7631 Nov, [facility] [place] [facility] [address] [id number] [place] [address]- 3780 Nov, [facility] [place] [facility] [address] [id number] [place] [address]- 4521 Nov, [facility] [place] [facility] [address] [id number] [place] [address]- 7946 Oct, [facility] [place] [facility] [address] [id number] [place] [address] 2548 Oct, [facility] [place] [facility] [address] [id number] [place] [address]- 5271 Oct, [facility] [place] [facility] [address] [id number] [place] [address]- 9442 Oct, [facility] [place] [facility] [address] [id number] [place] [address]- 7118 Oct, [facility] [place] [facility] [address] [id number] [place] [address]- 8887 Oct, [facility] [place] [facility] [address] [id number] [place] [address]- 0263 Oct, [facility] [place] [facility] [address] [id number] [place] [address]- 4263 Oct, [facility] [place] [facility] [address] [id number] [place] [address]- 0083 Sep, [facility] [place] [facility] [address] [id number] [place] [address]- 0414 Sep, [facility] [place] [facility] [address] [id number] [place] [address]- 2129 Sep, [facility] [place] [facility] [address] [id number] [place] [address]- 8345 Sep, [facility] [place] [facility] [address] [id number] [place] [address]- 2063 Sep, [facility] [place] [facility] [address] [id number] [place] [address]- 4108 Sep, [facility] [place] [facility] [address] [id number], [place] [address]- 6427 Sep, [facility] [place] [facility] [address] [id number] [place] [address]- 1862 Sep, [facility] [place] [facility] [address] [id number] [place] [address]- 0421 August, [facility] [place] [facility] [address] [id number] [place] [address]- 7459 August, [facility] [place] [facility] [address] [id number] [place] [address]- 9741 August, [facility] [address] [id number] [place] [address]- 7711 August, [facility] [address] [id number] [place] [address]- 9652 August, [facility] [address] [id number] [place] [address]- 9955 Jul, [facility] [address] [id number] [place] [address]- 0843 Jul, [facility] [address] [id number] [place] [address]- 1850 Jul, [facility] [address] [id number] [place] [address]- 2553 Jul, [facility] [address] [id number] [place] [address]- 9218 Jul, [facility] [address] [id number] [place] [address]- 0328 Jun, [facility] [address] [id number] [place] [address]- 1360 18 Jun, 2012 [facility] [address] [id number] [place] [address]- 4048 15 Jun, 2012 [facility] [address] [id number] [place] [address]- 4160 14 Jun, 2012 [facility] [address] [id number] [place] [address]- 4916 12 Jun, 2012 [facility] [place] [facility] [address] [id number] [place] [address]- 6895 08 Jun, 2012 [facility] [place] [facility] [address] [id number] [place] [address]368 08 Jun, 2012 [facility] [address] [id number] [place] [address]- 8399 02 Jun, 2012 [facility] [address] [id number] [place] [address]- 5981 Jun, [facility] [address] [id number] [place] [address]- 0066 May, [facility] [address] [id number] [place] [address]- 7076 May, [facility] [address] [id number] [place] [address]- 3026 May, [facility] [address] [id number] [place] [address]- 1133 May, [facility] [address] [id number] [place] [address]- 0686 Apr, [facility] [address] [id number] [place] [address]- [address] Apr, [facility] [address] [id number] [place] [address] Apr, [facility] [address] [id number] [place] [address] Apr, [facility] [address] [id number] [place] [address] Apr, [facility] [address] [id number] [place] [address] Apr, [facility] [address] [id number] [place] [address] Apr, [facility] [address] [id number] [place] [address] Mar, [facility] [place] [id number] Mar, [facility] [address] [id number] [place] [address] Mar, [facility] [address] [id number] [place] [address] Mar, [facility] [place] [facility] [address] [id number] [place] [address] Mar, [facility] [place] [facility] [address] [id number] [place] [address] Mar, [facility] [place] [facility] [address] [id number] [place] [address] Mar, [facility] [place] [facility] [address] [id number] [place] [address] Mar, [facility] [place] [facility] [address] [id number] [place] [address] Mar, [facility] [place] [facility] [address] [id number] [place] [address] Mar, [facility] [place] [facility] [address] [id number] [place] [address] Mar, [facility] [place] [facility] [address] [id number] [place] [address] Mar, [facility] [place] [facility] [address] [id number] [place] [address] Mar, [facility] [place] [facility] [address] [id number] [place] [address] Mar, [facility] [place] [facility] [address] [id number] [place] [address] Mar, [facility] [place] [facility] [address] [id number], [place] [address] Mar, [facility] [place] [facility] [address] [id number] [place] [address] Mar, [facility] [place] [facility] [address] [id number] [place] [address] Feb, [facility] [place] [facility] [address] [id number] [place] [address] Feb, [facility] [place] [facility] [address] [id number] [place] [address] Feb, [facility] [place] [facility] [address] [id number] [place] [address] Feb, [facility] [place] [facility] [address] [id number] [place] [address] Feb, [facility] [place] [facility] [address] [id number] [place] [address] Feb, [facility] [place] [facility] [address] [id number] [place] [address] Feb, [facility] [place] [facility] [address] [id number] [place] [address] Feb, [facility] [place] [facility] [address] [id number] [place] [address] Feb, [facility] [place] [facility] [address] [id number] [place] [address] Feb, [facility] [place] [facility] [address] [id number] [place] [address] Feb, [facility] [place] [facility] [address] [id number] [place] [address] Feb, [facility] [place] [facility] [address] [id number] [place] [address] Feb, [facility] [place] [facility] [address] [id number] [place] [address] Feb, [facility] [place] [facility] [address] [id number], [place] [address] Feb, [facility] [place] [facility] [address] [id number] [place] [address] Feb, [facility] [place] [facility] [address] [id number] [place] [address] Jan, [facility] [place] [facility] [address] [id number], [place] [address] Jan, [facility] [place] [facility] [address] [id number] [place] [address] Jan, [facility] [place] [facility] [address] [id number] [place] [address] Jan, [facility] [place] [facility] [address] [id number] [place] [address] Jan, [facility] [place] [facility] [address] [id number] [place] [address] Jan, [facility] [place] [facility] [address] [id number] [place] [address] Jan, [facility] [place] [facility] [address] [id number] [place] [address] Jan, [facility] [place] [facility] [address] [id number] [place] [address] Jan, [facility] [place] [facility] [address] [id number] [place] [address] Jan, [facility] [place] [facility] [address] [id number] [place] [address] Jan, [facility] [place] [facility] [address] [id number] [place] [address] Jan, [facility] [place] [facility] [address] [id number] [place] [address] Jan, [facility] [place] [facility] [address] [id number], [place] [address] Jan, [facility] [place] [facility] [address] [id number] [place] [address] Jan, [facility] [place] [facility] [address] [id number] [place] [address] Jan, [facility] [place] [facility] [address] [id number] [place] [address] 365[address] Jan, [facility] [place] [facility] [address] [id number], [place] [address] 21 Dec, 2011 [facility] [place] [facility] [address] [id number] [place] [address] 20 Dec, 2011 [facility] [place] [facility] [address] [id number] [place] [address] 18 Dec, 2011 [facility] [place] [facility] [address] [id number] [place] [address] 18 Dec, 2011 [facility] [place] [facility] [address] [id number] [place] [address] 2546 10 Dec, 2011 [facility] [place] [facility] [address] [id number] [place] [address]46 10 Dec, 2011 [facility] [place] [facility] [address] [id number] [place] [address]- [address] 10 Dec, 2011 [facility] [place] [facility] [address] [id number] [place] [address]- [address] 07 Dec, 2011 [facility] [place] [facility] [address] [id number] [place] [address]- [address] 30 Nov, 2011 [facility] [place] [facility] [address] [id number] [place] [address]- [address] Nov, [facility] [place] [facility] [address] [id number] [place] [address]- [address] 24 Nov, 2011 [facility] [place] [facility] [address] [id number] [place] [address]- [address] Nov, [facility] [place] [facility] [address] [id number] [place] [address] Nov, [facility] [place] [facility] [address] [id number] [place] [address] 16 Nov, 2011 [facility] [place] [facility] [address] [id number] [place] [address] Oct, [facility] [place] [facility] [address] [id number] [place] [address] Oct, [facility] [place] [facility] [address] [id number] [place] [address] Oct, [facility] [address] [id number] [place] [address] Oct, [facility] [place] [facility] [address] [id number] [place] [address] Oct, [facility] [address] [id number] [place] [address] Oct, [facility] [place] [facility] [address] [id number] [place] [address] Oct, [facility] [address] [id number] [place] [address] Sep, [facility] [place] [facility] [address] [id number] [place] [address] Sep, [facility] [place] [facility] [address] [id number] [place] [address] Sep, [facility] [address] [id number] [place] [address] Sep, [facility] [place] [facility] [address] [id number] [place] [address] Sep, [facility] [address] [id number] [place] [address] 15 Sep, 2011 [facility] [place] [facility] [address] [id number] [place] [address] 14 Sep, 2011 [facility] [place] [facility] [address] [id number] [place] [address] Sep, [facility] [place] [facility] [address] [id number] [place] [address] 05 Sep, 2011 [facility] [place] [facility] [address] [id number] [place] [address] 04 Sep, 2011 [facility] [place] [facility] [address] [id number] [place] [address] August, [facility] [address] [id number] [place] [address] August, [facility] [place] [facility] [address] [id number] [place] [address] August, [facility] [place] [facility] [address] [id number] [place] [address] August, [facility] [place] [facility] [address] [id number] [place] [address] August, [facility] [address] [id number] [place] [address] Jul, [facility] [place] [facility] [address] [id number] [place] [address] Jul, [facility] [place] [facility] [address] [id number] [place] [address] Jul, [facility] [address] [id number] [place] [address] Jul, [facility] [place] [facility] [address] [id number] [place] [address] Jul, [facility] [place] [facility] [address] [id number] [place] [address] 8737 Jul, [facility] [place] [facility] [address] [id number] [place] [address] Jul, [facility] [place] [facility] [address] [id number], [place] [address] Jun, [facility] [place] [facility] [address] [id number] [place] [address] Jun, [facility] [place] [facility] [address] [id number] [place] [address]- 1064 Jun, [facility] [place] [facility] [address] [id number] [place] [address] 97[address] Jun, [facility] [place] [facility] [address] [id number], [place] [address] Jun, [facility] [place] [facility] [address] [id number] [place] [address] May, [facility] [place] [facility] [address] [id number] [place] [address] May, [facility] [place] [facility] [address] [id number] [place] [address] May, [facility] [place] [facility] [address] [id number] [place] [address] 1869 May, [facility] [place] [facility] [address] [id number] [place] [address]65 May, [facility] [place] [facility] [address] [facility] [id number] [place] [address] May, [facility] [place] [facility] [address] [id number] [place] [address] Apr, [facility] [place] [facility] [address] [id number] [place] [address] Mar, [facility] [place] [facility] [address] [facility] [id number] [place] [address]- [address] Feb, [facility] [place] [facility] [address] [facility] [id number] [place] [address]229 Feb, [facility] [place] [facility] [address] [id number] [place] [address] Feb, [facility] [place] [facility] [address] [id number] [place] [address]686 Feb, [facility] [place] [facility] [address] [id number] [place] [address] 68[address] Jan, [facility] [place] [facility] [address] [facility] [id number] [place] [address]- 9047 Jan, [facility] [place] [facility] [address] [id number] [place] [address]- 8765 Jan, [facility] [place] [facility] [address] [id number] [place] [address] 24 Jan, 2011 [facility] [address] [id number] [place] [address] 14 Jan, 2011 [facility] [address] [id number] [place] [address]- [address]34 19 Dec, 2010 [facility] [address] [id number] [place] [address]- [address]10 20 Oct, 2010 [facility] [address] [id number] [place] [address] August, [facility] [address] [id number] [place] [address]- 9485 29 Mar, 2010 [facility] [address] [id number] [place] [address] 27 Mar, 2010 [facility] [address] [id number] [place] [address]- 5496 16 Mar, 2010 [facility] [address] [id number] [place] [address]- [address]356 15 Mar, 2010 [facility] [address] [id number] [place] [address] 3734 15 Mar, 2010 [facility] [address] [id number] [place] [address]- 9187 08 Mar, 2010 [facility] [address] [id number] [place] [address]- 7813 03 Mar, 2010 [facility] [address] [id number] [place] [address]- 1804 24 Feb, 2010 [facility] [place] [facility] [address] [id number] [place] [address]- 2144 24 Feb, 2010 [facility] [address] [id number] [place] [address]- [address] 15 Feb, 2010 [facility] [address] [id number], [place] [address] Jan, [facility] [place] [facility] [address] [id number] [place] [address]- 1841 Jan, [facility] [place] [facility] [address] [id number], [place] [address] Jan, [facility] [place] [facility] [address] [id number] [place] [address]- [address]237 Nov, [facility] [place] [facility] [address] [id number], [place] [address] 36[address] 14 Sep, 2009 [facility] [place] [facility] [address] [id number] [place] [address]- 4564 August, [facility] [place] [facility] [address] [id number] [place] [address]- 5831 Mar, [facility] [place] [facility] [address] [id number], [place] [address]- [address] Mar, [facility] [place] [facility] [address] [id number], [place] [address]- [address] 17 Feb, 2009 [facility] [place] [facility] [address] [id number], [place] [address]- [address] Feb, [facility] [place] [facility] [address] [id number], [place] [address]- 1427 Feb, [facility] [place] [facility] [address] [id number], [place] [address]- 6097 Feb, [facility] [place] [facility] [address] [id number], [place] [address]- [address] 06 Feb, 2009 [facility] [place] [facility] [address] [id number], [place] [address]- 8609 27 Jan, 2009 [facility] [place] [facility] [address] [id number], [place] [address]- 2436 Jan, [facility] [place] [facility] [address] [id number], [place] [address]- [address]77 20 Jan, 2009 [facility] [place] [facility] [address] [facility] [id number] [place] [address]- [address] Jan, [facility] [address] [facility] [id number], [place] [address]- [address] Nov, [facility] [address] [id number], [place] [address] Sep, [facility] [address] [id number], [place] [address] 94[address] August, [facility] [address] [id number], [place] [address] Jul, [facility] [address] [id number], [place] [address] May, IMMUNIZATIONS No Known Immunizations SOCIAL HISTORY Never Assessed REASON FOR VISIT CCM note PLAN OF CARE VITAL SIGNS MEDICATIONS Medication Instructions Dosage Frequency Start Date End Date Duration Status Glucometer 1 test blood sugar Jul, Active RESULTS No Results PROCEDURES No [...] Knee Surgery 07/16/17 Hospitalization History [facility]- left hand/wrist swelling 10/09/2017
--- OUTSIDE RECORDS SUMMARY | 2018-01-01 12:30 | XMS REPORT ---
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 Active 28710478 Problem Colon polyp K63.5 Active 71928384 Problem Bilateral low back pain without sciatica M54.5 Active 214818966 Problem Screening breast examination Z12.39 Active 704045373 Problem Postmenopausal Z78.0 Active 10220132 Problem Osteopenia M85.80 Active 763955920 Problem Cigarette nicotine dependence without complication F17.210 Active 94817334 Problem Type 2 diabetes mellitus with diabetic peripheral angiopathy without gangrene E11.51 Active 749027431 Problem Vascular dementia without behavioral disturbance F01.50 Active 42160406608914872 Problem Unspecified atherosclerosis of [place] arteries of extremities, unspecified extremity I70.209 Active 804130207560987 Problem Arthritis M19.90 Active 4236435 Problem Chronic atrial fibrillation I48.2 Active 918721672 Problem Chronic obstructive pulmonary disease with acute lower respiratory infection J44.0 Active 340574001 Problem Other chronic pancreatitis K86.1 Active 789127408 Problem Stress incontinence of urine N39.3 Active 21267927 Problem Controlled type 2 diabetes mellitus without complication, without long -term current use of insulin E11.9 Active 245353001 Problem Unspecified psychosis F29 Active 60764469 Problem Xeroderma Q80.9 Active 16387143 Problem COPD (chronic obstructive pulmonary disease) J44.9 Active 60599373 Problem Dementia without behavioral disturbance, unspecified dementia type F03.90 Active 18298386 Problem Gastroparesis K31.84 Active 279294410 Problem Type 2 diabetes mellitus with diabetic neuropathy, without long-term current use of insulin E11.40 Active 08076088 Problem Osteoporosis M81.0 Active 78627740 Problem Atherosclerosis of [place] artery of both lower extremities with intermittent claudication I70.213 Active 117343201473799 Problem Hyperlipidemia E78.5 Active 35027202 Problem Diabetic polyneuropathy associated with type 2 diabetes mellitus E11.42 Active 54262494 Problem Essential tremor G25.0 Active 63855531 Problem Atherosclerotic heart disease of [place]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 I25.118 Active 6579280246997 Problem Generalized anxiety disorder F41.1 Active 116405749 Problem Gastroesophageal reflux disease, esophagitis presence not specified K21.9 Active 985336416 Problem Coronary artery disease involving [place] coronary artery of [place] 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 I25.118 Active 0925124012385 Problem Postconcussion syndrome F07.81 Active 98843833 Problem Chronic pain syndrome G89.4 Active 414632475 Problem Migraine without aura and without status migrainosus, not intractable G43.009 Active 186958768 Problem Paroxysmal atrial fibrillation I48.0 Active 403848073 Problem Migraine without aura and with status migrainosus, not intractable G43.001 Active 950692558 Problem Cervicalgia M54.2 Active 6424252454888 Problem Acute exacerbation of chronic obstructive pulmonary disease (COPD) J44.1 Active 162869405 Problem Major depressive disorder, recurrent episode, moderate F33.1 Active 968142488 Problem Crohn''s disease without complication, unspecified gastrointestinal tract location K50.90 Active 18617092 Problem Chronic fatigue R53.82 Active 04828778 Problem Bipolar affective disorder, currently depressed, moderate F31.32 Active 369680563 ALLERGIES No Information ENCOUNTERS Encounter Location Date Diagnosis [place] [id number] [address] Nov, [facility] [address] [address] Nov, [place] [address] [address] Oct, Bipolar affective disorder, currently depressed, moderate F31.32 ; Vascular dementia without behavioral disturbance F01.50 and Generalized anxiety disorder F41.1 [place] [address] [address] Oct, [facility] [address] [address] Oct, [facility] [address] [address] 95[address] Oct, Edema of both legs R60.0 [facility] [id number] [place] [address] 77532- 1671 Oct, [facility] [address] [address] 0921 Sep, [facility] [address] [address] 0[address] Sep, [facility] [address] [address] 135[address] Sep, [facility] [address] [address] 44[address] Sep, Encounter for well woman exam with routine gynecological exam Z01.419 ; Screening for STDs (sexually transmitted diseases) Z11.3 ; Screening breast examination Z12.31 and Overweight (BMI 25.0-29.9) E66.3 [facility] [address] [address] 4[address] Sep, [facility] [address] [address]- 3529 Sep, [facility] [address] [address]- 2896 Sep, [facility] [address] [address]- 6679 August, [facility] [address] [address]- 0430 August, [facility] [address] [address] August, Type 2 diabetes mellitus with diabetic neuropathy, without long-term current use of insulin E11.40 and Sprain of right ankle, unspecified ligament, initial encounter S93.401A [facility] [id number] [place] [address] 87910- 7341 August, [facility] [id number] [place] [address] 35847- 4153 August, [facility] [id number] [place] [address] 03475- 5132 August, [facility] [id number] [place] [address] 37274- 8714 August, Gastroesophageal reflux disease, esophagitis presence not specified K21.9 [facility] [id number] [place] [address] 70728- 4893 August, [place] [id number] [place] [address] 04044- 3921 August, [facility] [id number] [place] [address] 16073- 8606 August, [facility] [id number] [place] [address] 94330- 9643 August, Type 2 diabetes mellitus with diabetic neuropathy, without long-term current use of insulin E11.40 and Elevated liver enzymes R74.8 [place] [id number] [place] [address] 31370- 5541 Jul, [facility] [id number] [place] [address] 86732- 4758 Jul, Cough R05 [facility] [id number] [place] [address] 43279- 2706 Jul, [facility] [id number] [place] [address] 50299- 2069 Jul, [facility] [id number] [place] [address] 28753- 9497 Jul, Bipolar affective disorder, currently depressed, moderate F31.32 ; Vascular dementia without behavioral disturbance F01.50 and Generalized anxiety disorder F41.1 [facility] [address] [address]- [address] 24 Jul, 2017 [facility] [address] 91669- 2107 Jul, Type 2 diabetes mellitus with diabetic neuropathy, without long-term current use of insulin E11.40 and Elevated liver enzymes R74.8 [facility] [address] 59909- 1271 Jul, [facility] [address] 88449- 0789 Jul, [facility] [address] 53968- 7359 Jul, [facility] [address] 66872- 1875 Jul, Post-menopausal Z78.0 [facility] [address] 98015- 2157 Jul, Stress incontinence of urine N39.3 [facility] [id number] [place] [address] 18101- 9413 Jul, [facility] [id number] [place] [address] 42053- 3794 Jul, [facility] [id number] [place] [address] 69817- 9838 Jul, Stress incontinence of urine N39.3 and Cough R05 [facility] [address] 70299- 6075 Jul, [facility] [address] 57444- 2840 Jul, [facility] [address] 78438- 5482 Jul, [facility] [id number] [place] [address] 12770- 6710 Jul, Gastroesophageal reflux disease, esophagitis presence not specified K21.9 [facility] [id number] [place] [address] 62419- 6445 29 Jun, 2017 Diabetic polyneuropathy associated with type 2 diabetes mellitus E11.42 [place] [address] 599[address]- 1004 Jun, Diabetic polyneuropathy associated with type 2 diabetes mellitus E11.42 ; Coronary artery disease involving [place] coronary artery of [place] heart with other form of angina pectoris I25.118 and Paroxysmal atrial fibrillation I48.0 [place] [id number] [place] [address] 80328- 2674 Jun, [place] [id number] [place] [address] 43857- 5248 Jun, [place] [id number] [place] [address] 16654- 5164 Jun, Gastroenteritis K52.9 [place] [id number] [place] [address] 96711- 9103 Jun, Gastroenteritis K52.9 [facility] [id number] [place] [address] 20814- 8972 Jun, [place] [id number] [place] [address] 02928- 8689 Jun, [facility] [id number] [place] [address] 18631- 7459 Jun, Sprain of right ankle, unspecified ligament, initial encounter S93.401A ; Type 2 diabetes mellitus with diabetic neuropathy, without long-term current use of insulin E11.40 ; Atherosclerosis of [place] artery of both lower extremities with intermittent claudication I70.213 ; Atherosclerotic heart disease of [place]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 I25.118 ; Chronic atrial fibrillation I48.2 and Crohn''s disease without complication, unspecified gastrointestinal tract location K50.90 [facility] [address] [address] 17 Jun, 2017 Cough R05 and Chronic obstructive pulmonary disease with acute lower respiratory infection J44.0 [facility] [address] [place] [address] 66654- 2544 16 Jun, 2017 [facility] [address] [place] [address] 64585- 8500 15 Jun, 2017 Coughing R05 ; Unspecified atherosclerosis of [place] arteries of extremities, unspecified extremity I70.209 ; Type 2 diabetes mellitus with diabetic peripheral angiopathy without gangrene E11.51 ; Crohn''s disease without complication, unspecified gastrointestinal tract location K50.90 ; Other chronic pancreatitis K86.1 and Chronic atrial fibrillation I48.2 [facility] [address] [address] Jun, [facility] [id number] [place] [address] 58557- 2990 Jun, Bipolar affective disorder, currently depressed, moderate F31.32 ; Vascular dementia without behavioral disturbance F01.50 and Generalized anxiety disorder F41.1 [place] [address] [place] [address] 66798- 8465 May, Generalized anxiety disorder F41.1 [facility] [address] [address]- 5795 May, [facility] [address] [place] [address] 16271- 5701 May, [facility] [address] [place] [address] 61686- 9353 15 May, 2017 Coughing R05 [facility] [address] [place] [address] 44369- 8870 09 May, 2017 [facility] [address] [place] [address] 34849- 3630 May, Bipolar affective disorder, currently depressed, moderate F31.32 ; Vascular dementia without behavioral disturbance F01.50 and Generalized anxiety disorder F41.1 [facility] [id number] [place] [address] 74367- 0708 Apr, Generalized anxiety disorder F41.1 [facility] [id number] [place] [address] 29963- 3382 Apr, [place] [address] 22565- 8893 Apr, Vascular dementia without behavioral disturbance F01.50 ; Generalized anxiety disorder F41.1 and Bipolar affective disorder, currently depressed, moderate F31.32 [place] [address] 03696- 5984 Apr, Generalized anxiety disorder F41.1 [facility] [address] 53693 -0788 Apr, Cough R05 and Acute exacerbation of chronic obstructive pulmonary disease (COPD) J44.1 [place] [address] 96164- 8383 Apr, [facility] [address] 83568 -3751 Mar, Cough R05 and Cigarette nicotine dependence without complication F17.210 [place] [address] 66785- 4637 Mar, [place] [address] 77087- 5392 Feb, Generalized anxiety disorder F41.1 ; Major depressive disorder, recurrent episode, moderate F33.1 ; Vascular dementia without behavioral disturbance F01.50 and Unspecified psychosis F29 [place] [address] 10859- 9570 Feb, [place] [address] 89112- 0919 Feb, [place] [address] 98854- 1527 Feb, Generalized anxiety disorder F41.1 [place] [id number] [place] [address] 09701- 1277 Feb, Generalized anxiety disorder F41.1 [place] [id number] [place] [address] 62323- 8196 Feb, Dizziness R42 ; Chronic fatigue R53.82 ; Postconcussion syndrome F07.81 ; Fall, initial encounter W19.XXXA and Disorientation R41.0 [place] [address] 84675- 1519 03 Feb, 2017 Postconcussion syndrome F07.81 ; Injury of head, initial encounter S09.90XA ; Fall, initial encounter W19.XXXA ; Disorientation R41.0 and Acute cystitis with hematuria N30.01 [place] [address] 66755- 2165 Jan, Gastroesophageal reflux disease, esophagitis presence not specified K21.9 ; Post-menopausal Z78.0 and Migraine without aura and without status migrainosus, not intractable G43.009 [place] [address] 31357- 4536 Jan, [place] [id number] [place] [address] 42192- 5364 Jan, Generalized anxiety disorder F41.1 ; Major depressive disorder, recurrent episode, moderate F33.1 ; Vascular dementia without behavioral disturbance F01.50 and Unspecified psychosis F29 [place] [id number] [place] [address] 83200- 8357 Jan, Pneumonia of left lower lobe due to infectious organism J18.1 [place] [address] 87548- 4471 Jan, Migraine without aura and with status migrainosus, not intractable G43.001 [facility] [id number] [place] [address] 05753 -5573 Jan, Migraine without aura and without status migrainosus, not intractable G43.009 [facility] [id number] [place] [address] 58864- 2569 Dec, Hematoma T14.8 [facility] [id number] [place] [address] 83526- 4080 Dec, [facility] [address] 40846 -7654 Nov, Fatigue, unspecified type R53.83 [facility] [id number] [place] [address] 12459- 9703 Nov, Scabies B86 and Coronary artery disease involving [place] coronary artery of [place] heart with other form of angina pectoris I25.118 [facility] [id number] [place] [address] 65449- 7177 Nov, [facility] [id number] [place] [address] 23422- 8306 Nov, [facility] [id number] [place] [address] 72807- 2694 Oct, [facility] [id number] [place] [address] 98475- 2315 Oct, Generalized anxiety disorder F41.1 and Major depressive disorder, recurrent episode, moderate F33.1 [facility] [id number] [place] [address] 53172- 1445 Oct, Cramp of both lower extremities R25.2 [facility] [id number] [place] [address] 48581- 3014 Oct, Leg cramps R25.2 [facility] [id number] [place] [address] 97414- 1098 Oct, Chronic pain syndrome G89.4 [facility] [id number] [place] [address] 08655- 1625 Oct, [facility] [id number] [place] [address] 37821- 5389 14 Oct, 2016 [facility] [id number] [place] [address] 15051- 6253 11 Oct, 2016 Routine gynecological examination Z01.419 and Screening for breast cancer Z12.31 [facility] [id number] [place] [address] 93065- 0340 28 Sep, 2016 Diarrhea R19.7 [facility] [id number] [place] [address] 08104- 9903 26 Sep, 2016 Back pain M54.9 [place] [address] 69560- 4508 Sep, [place] [id number] [place] [address] 68650- 7082 Sep, [facility] [id number] [place] [address] 17030 -7675 August, Xeroderma Q80.9 [place] [id number] [place] [address] 64590- 7379 August, Dementia without behavioral disturbance, unspecified dementia type F03.90 [place] [id number] [place] [address] 88125- 0385 August, Chronic pain syndrome G89.4 [place] [id number] [place] [address] 61702- 9419 August, [place] [id number] [place] [address] 15851- 4301 August, Hyperlipidemia E78.5 ; Other fatigue R53.83 and Other specified hypotension I95.89 [facility] [id number] [place] [address] 21494 -1332 August, Dysuria R30.0 ; Other fatigue R53.83 and Other specified hypotension I95.89 [place] [id number] [place] [address] 77165- 9563 August, [facility] [id number] [place] [address] 03192- 7317 Jul, Pain in left knee M25.562 and Gastroenteritis K52.9 [facility] [id number] [place] [address] 86958- 3833 Jul, [place] [address] 37717- 9244 Jul, Diarrhea R19.[address] [facility] [id number] [place] [address] 44904 -3356 Jul, Spider bite, accidental or unintentional, initial encounter T63.301A [place] [address] 61921- 6073 Jul, Primary osteoarthritis of right knee M17.11 and Arthritis M19.90 [place] [address] 57701- 5522 Jul, Generalized anxiety disorder F41.1 and Major depressive disorder, recurrent episode, moderate F33.1 [place] [address] 22472- 3091 Jul, Type 2 diabetes mellitus with diabetic polyneuropathy E11.42 and Temporal headache R51 [place] [id number] [place] [address] 89724- 9891 Jul, Back pain M54.9 [place] [id number] [place] [address] 23709- 3907 Jul, [place] [id number] [place] [address] 56330- 8673 Jul, [place] [address] 97436- 8517 Jun, Nausea R11.[address] [facility] [id number] [place] [address] 54434 -9331 Jun, Acute suppurative otitis media of both ears without spontaneous rupture of tympanic membranes, recurrence not specified H66.003 and COPD exacerbation J44.1 [place] [address] 29431- 7474 Jun, Generalized anxiety disorder F41.1 [facility] [id number] [place] [address] 27596- 7503 16 Jun, 2016 [facility] [address] 19215 -6146 Jun, [facility] [address] 40426 -1585 Jun, Shortness of breath R06.02 and COPD exacerbation J44.1 [place] [address] 51904- 8159 10 Jun, 2016 Eczema, unspecified type L30.9 [place] [address] 65407- 3994 Jun, [place] [address] 88825- 8978 May, [place] [address] 53235- 9317 May, Muscle cramping R25.2 [place] [address] 88403- 9843 May, [place] [address] 21172- 8567 Apr, Diarrhea R19.7 [place] [address] 36671- 4974 Apr, [place] [address] 42448- 0861 Apr, Chronic pain syndrome G89.4 [place] [address] 65725- 9085 Apr, Cramp of both lower extremities R25.2 and Vascular dementia without behavioral disturbance F01.50 [place] [address] 61889- 3815 Apr, Type 2 diabetes mellitus with diabetic polyneuropathy E11.42 and Cigarette nicotine dependence without complication F17.210 [place] [address] 33791- 9256 Mar, Generalized anxiety disorder F41.1 [place] [address] 50359- 9597 Feb, Generalized anxiety disorder F41.1 and Major depressive disorder, recurrent episode, moderate F33.1 [place] [address] 34429- 2488 Feb, [facility] [address] 72112 -8084 Feb, Dysuria R30.0 and Acute cystitis with hematuria N30.01 [place] [address] 61762- 1967 Jan, [place] [address] 16838- 9869 Jan, [place] [address] 78810- 8579 Jan, [place] [address] 36557- 9215 Jan, [facility] [address] 65436 -1699 Jan, Wasp sting, accidental or unintentional, initial encounter T63.461A [place] [address] 91265- 6006 Jan, Encounter for immunization Z23 [place] [address] 94471- 0719 Jan, [place] [address] [place] [address]- 4442 Jan, [facility] [id number] [place] [address] 98847- 8039 28 Dec, 2015 Generalized anxiety disorder F41.1 and Major depressive disorder, recurrent episode, moderate F33.1 [facility] [address] [address]- 7433 21 Dec, 2015 Routine gynecological examination Z01.419 ; Postmenopausal Z78.0 ; Screening breast examination Z12.39 ; Osteopenia M85.80 and Breast cancer screening Z12.39 [facility] [id number] [place] [address] 59565- 8208 20 Dec, 2015 [facility] [id number] [place] [address] 95358- 5882 19 Dec, 2015 [facility] [id number] [place] [address] 00906- 6865 16 Dec, 2015 [facility] [id number] [place] [address] 25726- 4137 16 Dec, 2015 [facility] [id number] [place] [address] 78470- 0666 14 Dec, 2015 [facility] [id number] [place] [address] 18369- 1157 06 Dec, 2015 [facility] [id number] [place] [address] 93132- 0289 Nov, [facility] [id number] [place] [address] 99659 -7178 Nov, Cough R05 ; Other viral agents as the cause of diseases classified elsewhere B97.89 and Acute upper respiratory infection, unspecified J06.9 [facility] [id number] [place] [address] 82464- 7553 Nov, [facility] [id number] [place] [address] 71739- 4189 Nov, [facility] [id number] [address]- 7278 Nov, [facility] [address] [address]- 3013 Nov, [facility] [address] [address]- 7369 Nov, [facility] [id number] [place] [address] 57950- 6079 Oct, [facility] [id number] [place] [address] 65583- 0930 Oct, [facility] [id number] [place] [address] 77972- 5649 Oct, [facility] [id number] [place] [address] 33420- 8330 Oct, Chronic pain syndrome G89.4 [facility] [id number] [place] [address] 89146- 3891 Sep, Generalized anxiety disorder F41.1 and Major depressive disorder, recurrent episode, moderate F33.1 [facility] [address] [place] [address] 20105- 2342 Sep, [facility] [address] [address]- 2697 Sep, [facility] [address] [address]- 8703 Sep, Generalized anxiety disorder F41.1 [facility] [address] [address]- 7816 13 Sep, 2015 Cramp of both lower extremities R25.2 and Cervicalgia M54.2 [facility] [address] [address]- 7321 06 Sep, 2015 Generalized anxiety disorder F41.1 [facility] [address] [address]- 3264 Sep, [facility] [id number] [place] [address] 74460 -8395 August, Rash R21 ; Itching L29.9 and Allergic response, subsequent encounter T78.40XD [facility] [id number] [place] [address] 12610- 6632 August, Primary insomnia F51.01 [facility] [id number] [place] [address] 00299 -6282 August, Rash R21 ; Itching L29.9 and Allergic response, initial encounter T78.40XA [facility] [id number] [place] [address] 66136- 7627 August, [place] [facility] [address] 69885- 2881 August, Cramp of both lower extremities R25.2 [facility] [facility] [id number] [place] [address] 34748- 7796 August, Back pain M54.9 [facility] [facility] [id number] [place] [address] 14465- 9725 August, [facility] [id number] [place] [address] 76163- 5519 August, [facility] [id number] [place] [address] 74730 -9997 August, Cramp of both lower extremities R25.2 [place] [facility] [id number] [place] [address] 85190- 8220 August, [facility] [facility] [id number] [place] [address] 59580- 3600 August, Syncope R55 ; Paroxysmal atrial fibrillation I48.0 ; Dementia without behavioral disturbance, unspecified dementia type F03.90 and Chronic pain syndrome G89.4 [place] [facility] [id number] [place] [address] 97037- 1122 August, Type 2 diabetes mellitus with diabetic polyneuropathy E11.42 and Syncope R55 [facility] [address] [address]- 9638 Jul, [facility] [address] [address] 2546 Jul, [facility] [address] [address] 2542 Jul, [facility] [id number] [place] [address] 75671 2541 Jul, [facility] [address] [place] [address] 21877- 9936 Jul, [facility] [id number] [place] [address] 55311- 2475 Jul, UTI (urinary tract infection) N39.0 [facility] [address] [place] [address] 92656- 6939 Jul, [facility] [address] [address]- 9971 18 Jul, 2015 Major depressive disorder, recurrent episode, moderate F33.1 and Generalized anxiety disorder F41.1 [facility] [address] [address]- 3628 Jul, Generalized anxiety disorder F41.1 [facility] [address] [address]- 8277 Jul, Diarrhea R19.7 [facility] [address] [address] 2549 Jul, [facility] [address] [address]- 8700 Jun, [facility] [address] [address]- 4346 Jun, Eczema L30.9 [facility] [address] [address] 2548 Jun, [facility] [address] [facility] [id number] [address]- 5309 Jun, COPD (chronic obstructive pulmonary disease) J44.9 [facility] [address] [address]- 5886 Jun, [facility] [address] [address]- 0271 Jun, Major depressive disorder, recurrent episode, moderate F33.1 and Generalized anxiety disorder F41.1 [facility] [address] [address]- 5292 May, [facility] [address] [address]- 4407 May, UTI (urinary tract infection) N39.0 [facility] [address] [address]- 2376 May, [facility] [address] [address]- 3045 May, [facility] [address] [address]- 5826 May, [facility] [address] [address]- 6658 May, [facility] [address] [address]- 5969 Apr, Major depressive disorder, recurrent episode, moderate F33.1 and Generalized anxiety disorder F41.1 [facility] [id number] [address]- 4783 Apr, COPD (chronic obstructive pulmonary disease) J44.9 [facility] [id number] [address]- 1028 Apr, [facility] [id number] [address]- 7467 Apr, Atrial flutter I48.92 [facility] [address] [address]- 4395 Apr, [facility] [id number] [place] [address] 60953- 2839 Apr, [facility] [id number] [place] [address] 47361- 9368 Mar, [facility] [id number] [place] [address] 18033- 2231 Mar, [facility] [id number] [place] [address] 03918- 0616 Mar, [facility] [id number] [place] [address] 15065- 3914 Mar, Hyperlipidemia E78.5 ; Type 2 diabetes mellitus with diabetic polyneuropathy E11.42 ; Major depressive disorder, recurrent episode, moderate F33.1 and Chronic pain syndrome G89.4 [facility] [id number] [place] [address] 18349- 0833 Mar, [facility] [id number] [place] [address] 65712- 2278 Mar, [facility] [address] [address]- 4033 Mar, [facility] [id number] [place] [address] 70212- 5649 Mar, [facility] [address] [place] [address] 84014- 8264 Feb, COPD (chronic obstructive pulmonary disease) J44.9 and Back pain M54.9 [facility] [id number] [place] [address] 74250- 8845 Feb, [facility] [address] [address]- 4183 Feb, [facility] [id number] [place] [address] 07027- 5962 Feb, [facility] [address] [address]- 9108 Feb, [facility] [id number] [place] [address] 11741- 4146 Feb, [facility] [address] [place] [address] 38396- 0088 Feb, [facility] [id number] [place] [address] 26286- 1356 Feb, [facility] [id number] [place] [address] 60634- 5137 Feb, [facility] [id number] [place] [address] 98539- 7115 Feb, Diabetes E11.9 ; Back pain M54.9 and COPD (chronic obstructive pulmonary disease) J44.9 [facility] [id number] [place] [address] 09710- 3260 Jan, [facility] [id number] [place] [address] 51523- 6710 Jan, Major depression, recurrent F33.9 and Generalized anxiety disorder F41.1 [facility] [address] [place] [address] 38489- 1364 Jan, Chronic pain G89.29 [facility] [id number] [place] [address] 07212- 9538 Jan, [facility] [id number] [place] [address] 46603- 4543 Jan, [facility] [id number] [place] [address] 50199- 2751 Jan, [facility] [address] [address]- 5768 Jan, [facility] [address] [place] [address] 96123- 1404 Jan, Nicotine dependence F17.200 [facility] [address] [place] [address] 89787- 6770 Jan, Nicotine dependence F17.200 and Back pain M54.9 [facility] [id number] [place] [address] 29891- 7686 Jan, [facility] [id number] [place] [address] 43744- 9743 28 Dec, 2014 [facility] [id number] [place] [address] 46480- 5758 25 Dec, 2014 Anxiety, generalized 300.02 and Major depression, recurrent 296.30 [facility] [id number] [place] [address] 44389- 6346 24 Dec, 2014 [facility] [id number] [place] [address] 46869- 1209 21 Dec, 2014 [facility] [id number] [place] [address] 17043- 5555 17 Dec, 2014 [facility] [id number] [place] [address] 45840- 1977 15 Dec, 2014 [facility] [id number] [place] [address] 24188- 0455 14 Dec, 2014 [facility] [id number] [place] [address] 64215- 9718 11 Dec, 2014 [facility] [id number] [place] [address] 34501- 0055 10 Dec, 2014 [facility] [address] [place] [address] 15223- 9010 08 Dec, 2014 Skin tear 879.8 [facility] [id number] [place] [address] 35865- 3394 08 Dec, 2014 Routine gynecological examination V72.31 ; Breast cancer screening V76.10 and Family history of breast cancer in first degree relative V16.3 [facility] [id number] [place] [address] 30563- 5174 Dec, [facility] [id number] [place] [address] 74497- 0918 Dec, [facility] [id number] [place] [address] 18276- 8482 Nov, [facility] [id number] [place] [address] 55120- 9315 Nov, [facility] [address] 68969- 4700 Nov, Poor balance 781.99 and Vascular dementia, uncomplicated 290.40 [facility] [address] 87492- 7098 Nov, [facility] [id number] [place] [address] 57992- 8287 Nov, Major depression, recurrent 296.30 and Anxiety, generalized 300.02 [facility] [id number] [place] [address] 11342- 1832 Nov, [facility] [id number] [place] [address] 20855- 3065 Nov, [facility] [id number] [place] [address] 52655- 6934 Nov, [facility] [id number] [place] [address] 98244- 5580 Nov, [facility] [id number] [place] [address] 29475- 6109 Nov, Vascular dementia, uncomplicated 290.40 and Lumbago 724.2 [facility] [id number] [place] [address] 69593- 7701 Nov, [facility] [id number] [place] [address] 66520- 4858 Nov, [facility] [id number] [place] [address] 80792- 4852 Nov, [facility] [address] [address]- 1337 Oct, [facility] [address] [address]- 5779 Oct, [facility] [address] [address]- 1664 Oct, [facility] [id number] [place] [address] 09949- 0968 Oct, COPD (chronic obstructive pulmonary disease) 496 and Hyperlipidemia 272.4 [facility] [address] [place] [address] 78965- 6956 Oct, Major depression, recurrent 296.30 and Anxiety, generalized 300.02 [facility] [address] [address]- 2823 Oct, [facility] [address] [address]- 1512 Oct, [facility] [address] [address]- 3157 Oct, [facility] [address] [address]- 0050 Sep, Lumbago 724.2 and Anxiety state, unspecified 300.00 [facility] [address] [address]- 0203 Sep, [facility] [address] [address]- 8423 Sep, [facility] [address] [address]- 5766 August, [facility] [address]- 7324 August, Major depression, recurrent 296.30 ; Anxiety, generalized 300.02 and No condition on [place] II V71.09 [facility] [address] [place] [address]- 7606 August, [facility] [address] [id number] [place] [address]- 2958 August, [facility] [place] [facility] [address] [id number] [place] [address]- 6836 29 Jul, 2014 [facility] [address] [id number] [place] [address]- 5844 14 Jul, 2014 [facility] [place] [facility] [address] [id number] [place] [address]- 1006 Jul, [facility] [address] [id number] [place] [address]- 1002 30 Jun, 2014 [facility] [place] [facility] [address] [id number] [place] [address]- 1711 30 Jun, 2014 [facility] [place] [facility] [address] [id number] [place] [address]- 4602 Jun, [facility] [address] [id number] [place] [address]- 1705 27 Jun, 2014 [facility] [place] [facility] [address] [id number] [place] [address]- 8920 26 Jun, [address] [facility] [address] [id number] [place] [address]- 6505 Jun, [facility] [place] [facility] [address] [id number] [place] [address]- 0952 23 Jun, 2014 [facility] [place] [facility] [address] [id number] [place] [address]- 2462 17 Jun, 2014 [facility] [place] [facility] [address] [id number] [place] [address]- 4260 13 Jun, 2014 [facility] [place] [facility] [address] [id number] [place] [address]- 2106 13 Jun, 2014 [facility] [place] [facility] [address] [id number] [place] [address]- 7092 10 Jun, 2014 [facility] [place] [facility] [address] [id number] [place] [address]- 0209 10 Jun, 2014 [facility] [place] [facility] [address] [id number] [place] [address]- 0324 Jun, [facility] [place] [facility] [address] [id number] [place] [address]- 0539 Jun, [facility] [place] [facility] [address] [id number] [place] [address]- 7627 Jun, 2014 [facility] [place] [facility] [address] [id number] [place] [address]- 3020 Jun, [facility] [place] [facility] [address] [id number] [place] [address]- 0975 May, 2014 [facility] [place] [facility] [address] [facility] [id number] [place] [address]- 0193 May, 2014 [facility] [place] [facility] [address] [facility] [id number] [place] [address]- 3504 May, 2014 [facility] [place] [facility] [address] [id number] [place] [address]- 6913 May, 2014 [facility] [place] [facility] [address] [facility] [id number] [place] [address]- 3989 May, 2014 [facility] [place] [facility] [address] [facility] [id number] [place] [address]- 5208 May, 2014 [facility] [place] [facility] [address] [id number] [place] [address]- 8261 May, 2014 [facility] [place] [facility] [address] [id number] [place] [address]- 0207 May, 2014 [facility] [place] [facility] [address] [facility] [id number] [place] [address]- 4671 May, 2014 [facility] [place] [facility] [address] [facility] [id number] [place] [address]- 4178 May, 2014 [facility] [place] [facility] [address] [id number] [place] [address]- 8259 May, 2014 [facility] [place] [facility] [address] [id number] [place] [address]- 8647 May, 2014 [facility] [place] [facility] [address] [id number] [place] [address]- 1306 May, 2014 [facility] [place] [facility] [address] [id number] [place] [address]- 3932 May, [facility] [place] [facility] [address] [id number] [place] [address]- 5700 Apr, [facility] [place] [facility] [address] [id number] [place] [address]- 4950 Apr, [facility] [place] [facility] [address] [id number] [place] [address]- 1317 Apr, [facility] [place] [facility] [address] [id number] [place] [address]- 7192 Apr, [facility] [place] [facility] [address] [id number] [place] [address]- 7697 Apr, [facility] [place] [facility] [address] [id number] [place] [address]- 7851 Apr, [facility] [place] [facility] [address] [id number] [place] [address]- 7608 Apr, [facility] [place] [facility] [address] [id number] [place] [address]- 2505 Apr, [facility] [place] [facility] [address] [id number] [place] [address]- 5361 Apr, [facility] [place] [facility] [address] [id number] [place] [address]- 8090 Apr, [facility] [place] [facility] [address] [id number] [place] [address]- 5048 Apr, [facility] [place] [facility] [address] [id number] [place] [address]- 5690 Apr, [facility] [place] [facility] [address] [id number] [place] [address]- 0404 31 Mar, 2014 [facility] [place] [facility] [address] [id number] [place] [address] 31 Mar, 2014 [facility] [place] [facility] [address] [id number] [place] [address] 30 Mar, 2014 [facility] [place] [facility] [address] [id number] [place] [address] 30 Mar, 2014 [facility] [place] [facility] [address] [id number] [place] [address] 29 Mar, 2014 [facility] [place] [facility] [address] [id number] [place] [address] 29 Mar, 2014 [facility] [place] [facility] [address] [id number] [place] [address] Mar, [facility] [place] [facility] [address] [id number] [place] [address] 19 Mar, 2014 [facility] [place] [facility] [address] [id number] [place] [address] 15 Mar, 2014 [facility] [place] [facility] [address] [id number] [place] [address] 15 Mar, 2014 [facility] [place] [facility] [address] [id number] [place] [address] 3216 15 Mar, 2014 [facility] [place] [facility] [address] [id number] [place] [address]271 15 Mar, 2014 [facility] [place] [facility] [address] [id number] [place] [address] 2936 15 Mar, 2014 [facility] [place] [facility] [address] [id number] [place] [address]- [address]266 15 Mar, 2014 [facility] [place] [facility] [address] [id number] [place] [address] 08 Mar, 2014 [facility] [place] [facility] [address] [id number] [place] [address]- [address] Mar, [facility] [place] [facility] [address] [id number] [place] [address] Mar, [facility] [place] [facility] [address] [id number] [place] [address] Mar, [facility] [place] [facility] [address] [id number] [place] [address]- [address] Mar, [facility] [place] [facility] [address] [id number] [place] [address] Mar, [facility] [place] [facility] [address] [id number] [place] [address] 280[address] Feb, [facility] [place] [facility] [address] [id number] [place] [address] Feb, [facility] [place] [facility] [address] [id number] [place] [address] Feb, [facility] [place] [facility] [address] [id number] [place] [address]- [address] Feb, [facility] [place] [facility] [address] [id number] [place] [address] Feb, [facility] [place] [facility] [address] [facility] [id number] [place] [address] Feb, [facility] [place] [facility] [address] [id number] [place] [address]- 79[address] Feb, [facility] [place] [facility] [address] [id number] [place] [address] Feb, [facility] [place] [facility] [address] [id number] [place] [address] 12[address] Feb, [facility] [place] [facility] [address] [id number] [place] [address] 75[address] Feb, [facility] [place] [facility] [address] [id number] [place] [address] 9788 Feb, [facility] [place] [facility] [address] [id number] [place] [address] Feb, [facility] [place] [facility] [address] [id number] [place] [address] Feb, [facility] [place] [facility] [address] [id number] [place] [address] 82[address] Feb, [facility] [place] [facility] [address] [id number] [place] [address] Feb, [facility] [place] [facility] [address] [id number] [place] [address] Feb, [facility] [place] [facility] [address] [id number] [place] [address] 6[address] Feb, [facility] [place] [facility] [address] [id number] [place] [address] 60[address] Jan, [facility] [place] [facility] [address] [id number] [place] [address] Jan, [facility] [place] [facility] [address] [id number] [place] [address] Jan, [facility] [place] [facility] [address] [id number] [place] [address]- 6161 Jan, [facility] [place] [facility] [address] [id number] [place] [address] Jan, [facility] [place] [facility] [address] [id number] [place] [address] 73[address] Jan, [facility] [place] [facility] [address] [id number] [place] [address] 7565 Jan, [facility] [place] [facility] [address] [id number] [place] [address] 1811 Jan, [facility] [place] [facility] [address] [id number] [place] [address] Jan, [facility] [place] [facility] [address] [id number] [place] [address] 6627 Jan, [facility] [place] [facility] [address] [id number] [place] [address] 3887 Jan, [facility] [place] [facility] [address] [id number] [place] [address] 4936 Dec, [facility] [place] [facility] [address] [id number] [place] [address]- 0766 Dec, [facility] [place] [facility] [address] [id number] [place] [address] 6664 Nov, [facility] [place] [facility] [address] [id number] [place] [address]- 1191 Nov, [facility] [place] [facility] [address] [id number] [place] [address]- 6024 Nov, [facility] [place] [facility] [address] [id number] [place] [address]- 5383 Nov, [facility] [place] [facility] [address] [id number] [place] [address]- 8305 Nov, [facility] [place] [facility] [address] [id number] [place] [address]- 5915 Nov, [facility] [place] [facility] [address] [id number] [place] [address]- 7607 Nov, [facility] [place] [facility] [address] [id number] [place] [address]- 8412 Oct, [facility] [place] [facility] [address] [id number] [place] [address]- 7854 Oct, [facility] [place] [facility] [address] [id number] [place] [address]- 9883 Oct, [facility] [place] [facility] [address] [id number] [place] [address]- 4449 Oct, [facility] [place] [facility] [address] [id number] [place] [address]- 3174 Sep, [facility] [place] [facility] [address] [id number] [place] [address]- 8952 30 Sep, 2013 [facility] [place] [facility] [address] [id number] [place] [address]- 8697 Sep, [facility] [place] [facility] [address] [id number] [place] [address]- 3868 Sep, [facility] [place] [facility] [address] [id number] [place] [address]- 5813 Sep, [facility] [place] [facility] [address] [id number] [place] [address]- 0474 Sep, [facility] [place] [facility] [address] [id number] [place] [address]- 8394 Sep, [facility] [place] [facility] [address] [id number] [place] [address]- 1814 Sep, [facility] [place] [facility] [address] [id number] [place] [address]- 2182 Sep, [facility] [place] [facility] [address] [id number] [place] [address] 1930 Sep, [facility] [place] [facility] [address] [id number] [place] [address]- 6362 Sep, [facility] [place] [facility] [address] [id number] [place] [address]- 2015 Sep, [facility] [place] [facility] [address] [id number] [place] [address]- 9639 Sep, [facility] [place] [facility] [address] [id number] [place] [address]- 5592 Sep, [facility] [place] [facility] [address] [id number] [place] [address]- 4689 August, [facility] [place] [facility] [address] [id number] [place] [address]- 1018 August, [facility] [place] [facility] [address] [id number] [place] [address]- 9296 August, [facility] [address] [id number] [place] [address]- 9454 August, [facility] [place] [facility] [address] [id number] [place] [address]- 8263 August, [facility] [place] [facility] [address] [id number] [place] [address] August, [facility] [place] [facility] [address] [id number] [place] [address]- 8327 August, [facility] [place] [facility] [address] [id number] [place] [address]- 0929 August, [facility] [place] [facility] [address] [id number] [place] [address]- 6133 August, [facility] [place] [facility] [address] [id number] [place] [address]- 3134 August, [facility] [place] [facility] [address] [id number] [place] [address]- 5779 August, [facility] [place] [facility] [address] [id number] [place] [address]- 5691 August, [facility] [place] [facility] [address] [id number] [place] [address]- 6160 August, [facility] [place] [facility] [address] [id number] [place] [address]- 7116 August, [facility] [place] [facility] [address] [id number] [place] [address]- 7599 August, [facility] [place] [facility] [address] [id number] [place] [address]- 7740 August, [facility] [place] [facility] [address] [id number] [place] [address]- 3053 August, [facility] [place] [facility] [address] [id number] [place] [address]- 2171 August, [facility] [place] [facility] [address] [id number] [place] [address]- 6581 August, [facility] [place] [facility] [address] [id number] [place] [address]- 0354 Jul, [facility] [place] [facility] [address] [id number] [place] [address]- 2771 Jul, [facility] [place] [facility] [address] [id number] [place] [address]- 4732 Jul, [facility] [place] [facility] [address] [id number] [place] [address]- 4734 Jul, [facility] [place] [facility] [address] [id number] [place] [address]- 5848 Jun, [facility] [place] [facility] [address] [id number] [place] [address]- 5065 Jun, [facility] [place] [facility] [address] [id number] [place] [address]- 2377 Jun, [facility] [place] [facility] [address] [id number] [place] [address]- 4545 Jun, [facility] [place] [facility] [address] [id number] [place] [address]- 0771 Jun, [facility] [place] [facility] [address] [id number] [place] [address]- 8985 Jun, [facility] [place] [facility] [address] [id number] [place] [address]- 4700 Jun, [facility] [place] [facility] [address] [id number] [place] [address]- 0953 Jun, [facility] [place] [facility] [address] [id number] [place] [address]- 3785 Jun, [facility] [place] [facility] [address] [id number] [place] [address]- 5545 Jun, [facility] [place] [facility] [address] [id number] [place] [address]- 3170 May, [facility] [place] [facility] [address] [id number] [place] [address]- 6536 May, [facility] [place] [facility] [address] [id number] [place] [address]- 8896 May, [facility] [place] [facility] [address] [id number] [place] [address]- 3026 May, [facility] [place] [facility] [address] [id number] [place] [address]- 2546 May, [facility] [place] [facility] [address] [id number] [place] [address]- 0111 May, [facility] [place] [facility] [address] [id number] [place] [address]- 1427 20 May, 2013 [facility] [place] [facility] [address] [facility] [id number] [place] [address]- 8320 May, [facility] [place] [facility] [address] [id number] [place] [address]- 9352 May, [facility] [place] [facility] [address] [id number] [place] [address]- 2934 18 May, 2013 [facility] [place] [facility] [address] [facility] [id number] [place] [address]- 0962 18 May, 2013 [facility] [place] [facility] [address] [facility] [id number] [place] [address]- 8271 17 May, 2013 [facility] [place] [facility] [address] [id number] [place] [address]- 2543 11 May, 2013 [facility] [place] [facility] [address] [id number] [place] [address]- 2546 11 May, 2013 [facility] [place] [facility] [address] [id number] [place] [address]- 5664 10 May, 2013 [facility] [place] [facility] [address] [facility] [id number] [place] [address]- 2546 07 May, 2013 [facility] [place] [facility] [address] [id number] [place] [address]- 2546 07 May, 2013 [facility] [address] [id number] [place] [address]- 1106 Apr, [facility] [address] [id number] [place] [address]- 2546 Apr, [facility] [address] [id number] [place] [address]- 2546 Apr, [facility] [address] [id number] [place] [address]- 2546 Apr, [facility] [address] [id number] [place] [address]- 0296 Apr, [facility] [address] [id number] [place] [address]- 8116 Apr, [facility] [address] [id number] [place] [address]- 1461 Apr, [facility] [address] [id number] [place] [address]- 6569 Mar, [facility] [address] [id number] [place] [address]- 3886 Mar, [facility] [address] [id number] [place] [address]- 7200 Mar, [facility] [address] [id number] [place] [address]- 6216 Mar, [facility] [address] [id number] [place] [address]- 3906 Mar, [facility] [place] [facility] [address] [id number] [place] [address]- 2546 Mar, [facility] [place] [facility] [address] [id number] [place] [address]- 2546 Mar, [facility] [place] [facility] [address] [id number] [place] [address]- 7630 Mar, [facility] [address] [id number] [place] [address]- 7694 Mar, [facility] [place] [facility] [address] [id number] [place] [address]- 4575 Mar, [facility] [place] [facility] [address] [id number] [place] [address]- 7873 Mar, [facility] [place] [facility] [address] [id number] [place] [address]- 5240 Feb, [facility] [place] [facility] [address] [id number] [place] [address]- 7359 Feb, [facility] [place] [facility] [address] [id number] [place] [address]- 3349 Feb, [facility] [place] [facility] [address] [id number] [place] [address]- 2934 Feb, [facility] [place] [facility] [address] [id number] [place] [address]- 0230 Feb, [facility] [place] [facility] [address] [id number] [place] [address]- 9504 19 Feb, 2013 [facility] [place] [facility] [address] [id number] [place] [address]- 3902 15 Feb, 2013 [facility] [place] [facility] [address] [id number] [place] [address]- 6522 14 Feb, 2013 [facility] [place] [facility] [address] [id number] [place] [address]- 7378 14 Feb, 2013 [facility] [place] [facility] [address] [id number] [place] [address]- 2214 13 Feb, 2013 [facility] [place] [facility] [address] [id number] [place] [address]- 7918 13 Feb, 2013 [facility] [place] [facility] [address] [id number] [place] [address]- 3051 12 Feb, 2013 [facility] [place] [facility] [address] [id number] [place] [address]- 5920 Feb, [facility] [place] [facility] [address] [id number] [place] [address]- 3445 Feb, [facility] [place] [facility] [address] [id number] [place] [address]- 5482 Feb, [facility] [place] [facility] [address] [id number] [place] [address]- 3527 Feb, [facility] [place] [facility] [address] [id number] [place] [address]- 6292 Jan, [facility] [place] [facility] [address] [id number] [place] [address]- 9189 Jan, [facility] [place] [facility] [address] [id number] [place] [address]- 5894 Jan, [facility] [place] [facility] [address] [id number] [place] [address]- 9505 Jan, [facility] [place] [facility] [address] [id number] [place] [address]- 8419 Jan, [facility] [place] [facility] [address] [id number] [place] [address]- 1490 Jan, [facility] [place] [facility] [address] [id number] [place] [address]- 1940 Jan, [facility] [place] [facility] [address] [id number] [place] [address]- 5064 10 Jan, 2013 [facility] [place] [facility] [address] [id number] [place] [address]- 5511 10 Jan, 2013 [facility] [place] [facility] [address] [id number] [place] [address]- 8919 27 Dec, 2012 [facility] [place] [facility] [address] [id number] [place] [address]- 2223 20 Dec, 2012 [facility] [place] [facility] [address] [id number] [place] [address]- 7321 19 Dec, 2012 [facility] [place] [facility] [address] [id number] [place] [address]- 8217 10 Dec, 2012 [facility] [place] [facility] [address] [id number] [place] [address]- 4576 04 Dec, 2012 [facility] [place] [facility] [address] [id number] [place] [address]- 2542 Dec, [facility] [place] [facility] [address] [id number] [place] [address]- 6224 Nov, [facility] [place] [facility] [address] [id number] [place] [address]- 5073 Nov, [facility] [place] [facility] [address] [id number] [place] [address]- 0733 Nov, [facility] [place] [facility] [address] [id number] [place] [address]- 1224 Nov, [facility] [place] [facility] [address] [id number] [place] [address]- 5059 Nov, [facility] [place] [facility] [address] [id number] [place] [address]- 2451 Nov, [facility] [place] [facility] [address] [id number] [place] [address]- 3928 Nov, [facility] [place] [facility] [address] [id number] [place] [address]- 4618 Nov, [facility] [place] [facility] [address] [id number] [place] [address]- 9508 Nov, [facility] [place] [facility] [address] [id number] [place] [address]- 1536 Nov, [facility] [place] [facility] [address] [id number] [place] [address]- 4111 Oct, [facility] [place] [facility] [address] [id number] [place] [address]- 5423 Oct, [facility] [place] [facility] [address] [id number] [place] [address]- 1054 Oct, [facility] [place] [facility] [address] [id number] [place] [address]- 0178 Oct, [facility] [place] [facility] [address] [id number] [place] [address]- 5566 Oct, [facility] [place] [facility] [address] [id number] [place]28 Oct, [facility] [place] [facility] [address] [id number] [place] [address]- 3462 Oct, [facility] [place] [facility] [address] [id number] [place] [address]- 0408 Oct, [facility] [place] [facility] [address] [id number] [place] [address]- 2953 Sep, [facility] [place] [facility] [address] [id number] [place] [address]- 7246 Sep, [facility] [place] [facility] [address] [id number] [place] [address]- 2972 Sep, [facility] [place] [facility] [address] [id number] [place] [address]- 8349 Sep, [facility] [place] [facility] [address] [id number] [place] [address]- 5891 Sep, [facility] [place] [facility] [address] [id number] [place] [address]- 2438 Sep, [facility] [place] [facility] [address] [id number] [place] [address]- 4559 Sep, [facility] [place] [facility] [address] [id number] [place] [address]- 6962 Sep, [facility] [place] [facility] [address] [id number] [place] [address]- 8908 August, [facility] [place] [facility] [address] [id number] [place] [address]- 2720 August, [facility] [place] [facility] [address] [id number] [place] [address]- 3719 August, [facility] [address] [id number] [place] [address]- 4613 August, [facility] [address] [id number] [place] [address]- 6945 August, [facility] [address] [id number] [place] [address]- 7382 Jul, [facility] [address] [id number] [place] [address]- 8545 Jul, [facility] [address] [id number] [place] [address]- 2356 Jul, [facility] [address] [id number] [place] [address]- 7715 Jul, [facility] [address] [id number] [place] [address]- 9687 Jul, [facility] [address] [id number] [place] [address]- 8681 Jun, [facility] [address] [id number] [place] [address]- 9071 18 Jun, 2012 [facility] [address] [id number] [place] [address]- 9881 15 Jun, 2012 [facility] [address] [id number] [place] [address]- 0495 14 Jun, 2012 [facility] [address] [id number] [place] [address]- 5626 12 Jun, 2012 [facility] [address] [id number] [place] [address]- 2910 08 Jun, 2012 [facility] [address] [id number] [place] [address]- 8897 08 Jun, 2012 [facility] [address] [id number] [place] [address]- 1338 Jun, [facility] [address] [id number] [place] [address]- 8683 Jun, [facility] [address] [id number] [place] [address]- 5564 May, [facility] [address] [id number] [place] [address]- 3222 May, [facility] [address] [id number] [place] [address]- 1479 May, [facility] [address] [id number] [place] [address]- 9556 May, [facility] [address] [id number] [place] [address]- 4560 Apr, [facility] [address] [id number] [place] [address]- 0646 Apr, [facility] [address] [id number] [place] [address]- 8221 Apr, [facility] [address] [id number] [place] [address]- 1767 Apr, [facility] [address] [id number] [place] [address]- 5737 Apr, [facility] [address] [id number] [place] [address]- 3004 Apr, [facility] [address] [id number] [place] [address]- 1229 Apr, [facility] [address] [id number] [place] [address]- 2775 Mar, [facility] [place] [id number] Mar, [facility] [address] [id number] [place] [address]- 2506 Mar, [facility] [address] [id number] [place] [address] Mar, [facility] [place] [facility] [address] [id number] [place] [address] Mar, [facility] [place] [facility] [address] [id number] [place] [address] 224[address] Mar, [facility] [place] [facility] [address] [id number] [place] [address] Mar, [facility] [place] [facility] [address] [id number] [place] [address] Mar, [facility] [place] [facility] [address] [id number] [place] [address] Mar, [facility] [place] [facility] [address] [id number] [place] [address] Mar, [facility] [place] [facility] [address] [id number] [place] [address] Mar, [facility] [place] [facility] [address] [id number] [place] [address] Mar, [facility] [place] [facility] [address] [id number] [place] [address] Mar, [facility] [place] [facility] [address] [id number] [place] [address] Mar, [facility] [place] [facility] [address] [id number] [place] [address] Mar, [facility] [place] [facility] [address] [id number] [place] [address] Mar, [facility] [place] [facility] [address] [id number] [place] [address] Mar, [facility] [place] [facility] [address] [id number] [place] [address] Feb, [facility] [place] [facility] [address] [id number] [place] [address]- 6282 Feb, [facility] [place] [facility] [address] [id number] [place] [address]- [address] Feb, [facility] [place] [facility] [address] [id number] [place] [address] Feb, [facility] [place] [facility] [address] [id number] [place] [address] Feb, [facility] [place] [facility] [address] [id number] [place] [address]- [address] Feb, [facility] [place] [facility] [address] [id number] [place] [address]- [address] Feb, [facility] [place] [facility] [address] [id number] [place] [address], [place] [address]- [address] Feb, [facility] [place] [facility] [address] [id number] [place] [address] Feb, [facility] [place] [facility] [address] [id number] [place] [address]- [address] Feb, [facility] [place] [facility] [address] [id number] [place] [address]- 92[address] Feb, [facility] [place] [facility] [address] [id number] [place] [address] 69[address] Feb, [facility] [place] [facility] [address] [facility] [id number] [place] [address] Feb, [facility] [place] [facility] [address] [id number] [place] [address] Feb, [facility] [place] [facility] [address] [id number] [place] [address]- [address] Feb, [facility] [place] [facility] [address] [id number] [place] [address] 35[address] Feb, [facility] [place] [facility] [address] [facility] [id number] [place] [address] Jan, [facility] [place] [facility] [address] [id number] [place] [address]- [address] Jan, [facility] [place] [facility] [address] [id number] [place] [address] Jan, [facility] [place] [facility] [address] [id number] [place] [address] 28[address] Jan, [facility] [place] [facility] [address] [id number] [place] [address] Jan, [facility] [place] [facility] [address] [id number] [place] [address]- 97[address] Jan, [facility] [place] [facility] [address] [id number] [place] [address] 9[address] Jan, [facility] [place] [facility] [address] [id number] [place] [address]- 1610 Jan, [facility] [place] [facility] [address] [facility] [id number] [place] [address] Jan, [facility] [place] [facility] [address] [id number] [place] [address] Jan, [facility] [place] [facility] [address] [id number] [place] [address] Jan, [facility] [place] [facility] [address] [id number] [place] [address] Jan, [facility] [place] [facility] [address] [facility] [id number] [place] [address] Jan, [facility] [place] [facility] [address] [id number] [place] [address] Jan, [facility] [place] [facility] [address] [id number] [place] [address] Jan, [facility] [place] [facility] [address] [id number] [place] [address]- [address] Jan, [facility] [place] [facility] [address] [facility] [id number] [place] [address] Jan, [facility] [place] [facility] [address] [id number] [place] [address] 21 Dec, 2011 [facility] [place] [facility] [address] [id number] [place] [address]46 20 Dec, 2011 [facility] [place] [facility] [address] [id number] [place] [address] 2546 18 Dec, 2011 [facility] [place] [facility] [address] [id number] [place] [address] 2546 18 Dec, 2011 [facility] [place] [facility] [address] [id number] [place] [address] 2546 10 Dec, 2011 [facility] [place] [facility] [address] [id number] [place] [address] 2546 10 Dec, 2011 [facility] [place] [facility] [address] [id number] [place] [address] 2546 10 Dec, 2011 [facility] [place] [facility] [address] [id number] [place] [address]- [address] 07 Dec, 2011 [facility] [place] [facility] [address] [id number] [place] [address]- [address] 30 Nov, 2011 [facility] [place] [facility] [address] [id number] [place] [address]- 97[address] 25 Nov, 2011 [facility] [place] [facility] [address] [id number] [place] [address]- [address] 24 Nov, 2011 [facility] [place] [facility] [address] [id number] [place] [address] 2546 Nov, [facility] [place] [facility] [address] [id number] [place] [address] 2546 Nov, [facility] [place] [facility] [address] [id number] [place] [address] 2546 16 Nov, 2011 [facility] [place] [facility] [address] [id number] [place] [address] 2546 30 Oct, 2011 [facility] [place] [facility] [address] [id number] [place] [address]- [address] 30 Oct, 2011 [facility] [place] [facility] [address] [id number] [place] [address]- [address] Oct, [facility] [place] [facility] [address] [id number] [place] [address]- [address] Oct, [facility] [place] [facility] [address] [id number] [place] [address]- [address] Oct, [facility] [place] [facility] [address] [id number] [place] [address]- 1283 Oct, [facility] [place] [facility] [address] [id number] [place] [address]- [address] Oct, [facility] [place] [facility] [address] [id number] [place] [address]- [address] Sep, [facility] [place] [facility] [address] [id number] [place] [address]- 74[address] Sep, [facility] [place] [facility] [address] [id number] [place] [address]- 2531 Sep, [facility] [place] [facility] [address] [id number] [place] [address]- 8163 Sep, [facility] [place] [facility] [address] [id number] [place] [address]- 60[address] Sep, [facility] [place] [facility] [address] [id number] [place] [address]- [address] 15 Sep, 2011 [facility] [place] [facility] [address] [id number] [place] [address]- 1714 14 Sep, 2011 [facility] [place] [facility] [address] [id number] [place] [address]- 4899 Sep, [facility] [place] [facility] [address] [id number] [place] [address] 05 Sep, 2011 [facility] [place] [facility] [address] [id number] [place] [address] 04 Sep, 2011 [facility] [place] [facility] [address] [id number] [place] [address] August, [facility] [address] [id number] [place] [address] August, [facility] [place] [facility] [address] [id number] [place] [address] August, [facility] [place] [facility] [address] [id number] [place] [address] August, [facility] [place] [facility] [address] [id number] [place] [address] August, [facility] [place] [facility] [address] [id number] [place] [address] Jul, [facility] [place] [facility] [address] [id number] [place] [address] Jul, [facility] [place] [facility] [address] [id number] [place] [address] Jul, [facility] [place] [facility] [address] [id number] [place] [address] Jul, [facility] [place] [facility] [address] [id number] [place] [address] Jul, [facility] [place] [facility] [address] [id number] [place] [address] Jul, [facility] [place] [facility] [address] [id number] [place] [address] Jul, [facility] [place] [facility] [address] [id number] [place] [address] Jun, [facility] [place] [facility] [address] [id number] [place] [address] Jun, [facility] [place] [facility] [address] [id number] [place] [address] Jun, [facility] [place] [facility] [address] [id number] [place] [address] Jun, [facility] [place] [facility] [address] [id number] [place] [address]60 Jun, [facility] [place] [facility] [address] [id number] [place] [address]451 May, [facility] [place] [facility] [address] [id number] [place] [address] May, [facility] [place] [facility] [address] [id number] [place] [address] May, [facility] [place] [facility] [address] [id number] [place] [address] 254 May, [facility] [place] [facility] [address] [id number] [place] [address], [place] [address] May, [facility] [place] [facility] [address] [facility] [id number] [place] [address] 67[address] May, [facility] [place] [facility] [address] [id number] [place] [address] Apr, [facility] [place] [facility] [address] [id number] [place] [address] Mar, [facility] [place] [facility] [address] [id number] [place] [address] Feb, [facility] [place] [facility] [address] [facility] [id number] [place] [address] Feb, [facility] [place] [facility] [address] [facility] [id number] [place] [address] 254 Feb, [facility] [place] [facility] [address] [id number] [place] [address] 2549 Feb, [facility] [place] [facility] [address] [facility] [id number] [place] [address] Jan, [facility] [place] [facility] [address] [facility] [id number] [place] [address] 7976 Jan, [facility] [place] [facility] [address] [facility] [id number] [place] [address] Jan, [facility] [place] [facility] [address] [id number] [place] [address] 24 Jan, 2011 [facility] [place] [facility] [address] [id number] [place] [address] 5536 14 Jan, 2011 [facility] [place] [facility] [address] [id number] [place] [address]274 19 Dec, 2010 [facility] [place] [facility] [address] [id number] [place] [address] 9[address] Oct, [facility] [place] [facility] [address] [id number] [place] [address] August, [facility] [place] [facility] [address] [id number] [place] [address]76 29 Mar, 2010 [facility] [place] [facility] [address] [id number] [place] [address] 2642 27 Mar, 2010 [facility] [place] [facility] [address] [id number] [place] [address] 6535 16 Mar, 2010 [facility] [place] [facility] [address] [id number] [place] [address] 15 Mar, 2010 [facility] [place] [facility] [address] [id number] [place] [address] 1177 15 Mar, 2010 [facility] [place] [facility] [address] [id number] [place] [address] 4099 08 Mar, 2010 [facility] [place] [facility] [address] [id number] [place] [address] 7669 03 Mar, 2010 [facility] [place] [facility] [address] [id number] [place] [address] 9532 24 Feb, 2010 [facility] [place] [facility] [address] [id number] [place] [address] 2547 24 Feb, 2010 [facility] [place] [facility] [address] [id number] [place] [address] 15 Feb, 2010 [facility] [place] [facility] [address] [id number] [place] [address] 19 Jan, 2010 [facility] [place] [facility] [address] [id number] [place] [address]- 8685 18 Jan, 2010 [facility] [place] [facility] [address] [id number] [place] [address] 18 Jan, 2010 [facility] [place] [facility] [address] [id number] [place] [address] Nov, [facility] [place] [facility] [address] [id number] [place] [address] 14 Sep, 2009 [facility] [place] [facility] [address] [id number] [place] [address], [place] [address] August, [facility] [place] [facility] [address] [id number] [place] [address] 5[address] Mar, [facility] [place] [facility] [address] [facility] [id number] [place] [address] Mar, [facility] [place] [facility] [address] [id number] [place] [address] 17 Feb, 2009 [facility] [place] [facility] [address] [facility] [id number] [place] [address] 10 Feb, 2009 [facility] [place] [facility] [address] [facility] [id number] [place] [address]370 10 Feb, 2009 [facility] [place] [facility] [address] [id number] [place] [address] 7559 10 Feb, 2009 [facility] [place] [facility] [address] [id number] [place] [address]- 1341 06 Feb, 2009 [facility] [place] [facility] [address] [id number] [place] [address]- 2415 27 Jan, 2009 [facility] [place] [facility] [address] [facility] [id number] [place] [address]- 7286 26 Jan, 2009 [facility] [place] [facility] [address] [facility] [id number] [place] [address] 7245 20 Jan, 2009 [facility] [place] [facility] [address] [id number] [place] [address] Jan, [facility] [address] [id number] [address] [address] Nov, [facility] [address] [id number] [place] [address] 5568 Sep, [facility] [address] [id number] [place] [address] August, [facility] [address] [id number] [address] Jul, [facility] [id number] [address] May, IMMUNIZATIONS No Known Immunizations SOCIAL HISTORY Never Assessed REASON FOR VISIT PLAN OF CARE VITAL SIGNS MEDICATIONS Medication Instructions Dosage Frequency Start Date End Date Duration Status Oxybutynin Chloride 5 mg Orally Twice a day 1 tablet 12h Jul, 30 day(s) Active RESULTS No Results [...] Knee Surgery 07/16/17 Hospitalization History [facility] [place]- left hand/wrist swelling 10/09/2017
--- OUTSIDE RECORDS SUMMARY | 2018-01-01 12:32 | XMS REPORT ---
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 Active 86793229 Problem Colon polyp K63.5 Active 02647526 Problem Bilateral low back pain without sciatica M54.5 Active 636767887 Problem Screening breast examination Z12.39 Active 426438489 Problem Postmenopausal Z78.0 Active 87516750 Problem Osteopenia M85.80 Active 043150626 Problem Cigarette nicotine dependence without complication F17.210 Active 84879446 Problem Type 2 diabetes mellitus with diabetic peripheral angiopathy without gangrene E11.51 Active 807405733 Problem Vascular dementia without behavioral disturbance F01.50 Active 31301785109912107 Problem Unspecified atherosclerosis of inaja arteries of extremities, unspecified extremity I70.209 Active 367242266869872 Problem Arthritis M19.90 Active 5912643 Problem Chronic atrial fibrillation I48.2 Active 654755860 Problem Chronic obstructive pulmonary disease with acute lower respiratory infection J44.0 Active 371443972 Problem Other chronic pancreatitis K86.1 Active 966897866 Problem Stress incontinence of urine N39.3 Active 20066071 Problem Controlled type 2 diabetes mellitus without complication, without long -term current use of insulin E11.9 Active 475513503 Problem Unspecified psychosis F29 Active 11883360 Problem Xeroderma Q80.9 Active 92777729 Problem COPD (chronic obstructive pulmonary disease) J44.9 Active 53216070 Problem Dementia without behavioral disturbance, unspecified dementia type F03.90 Active 62797072 Problem Gastroparesis K31.84 Active 082881884 Problem Type 2 diabetes mellitus with diabetic neuropathy, without long-term current use of insulin E11.40 Active 79390560 Problem Osteoporosis M81.0 Active 66007993 Problem Atherosclerosis of inaja artery of both lower extremities with intermittent claudication I70.213 Active 298856844128785 Problem Hyperlipidemia E78.5 Active 40697429 Problem Diabetic polyneuropathy associated with type 2 diabetes mellitus E11.42 Active 60725635 Problem Essential tremor G25.0 Active 72157794 Problem 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 Active 1751254720525 Problem Generalized anxiety disorder F41.1 Active 543542627 Problem Gastroesophageal reflux disease, esophagitis presence not specified K21.9 Active 752770366 Problem Coronary artery disease involving inaja coronary artery of inaja heart with other form of angina pectoris I25.118 Active 6956749695162 Problem Postconcussion syndrome F07.81 Active 50444357 Problem Chronic pain syndrome G89.4 Active 702983647 Problem Migraine without aura and without status migrainosus, not intractable G43.009 Active 317197504 Problem Paroxysmal atrial fibrillation I48.0 Active 750235854 Problem Migraine without aura and with status migrainosus, not intractable G43.001 Active 962054494 Problem Cervicalgia M54.2 Active 6679891145055 Problem Acute exacerbation of chronic obstructive pulmonary disease (COPD) J44.1 Active 638068071 Problem Major depressive disorder, recurrent episode, moderate F33.1 Active 939566830 Problem Crohn''s disease without complication, unspecified gastrointestinal tract location K50.90 Active 17653006 Problem Chronic fatigue R53.82 Active 46596240 Problem Bipolar affective disorder, currently depressed, moderate F31.32 Active 354684490 ALLERGIES No Information ENCOUNTERS Encounter Location Date Diagnosis [place] [address] [id number] [address] Nov, [facility] [address] [address] Nov, [place] [address] [address] Oct, Bipolar affective disorder, currently depressed, moderate F31.32 ; Vascular dementia without behavioral disturbance F01.50 and Generalized anxiety disorder F41.1 [place] [address] [address] Oct, [facility] [address] [address] 9[address] Oct, [facility] [address] [address] 9863 Oct, Edema of both legs R60.0 [facility] [id number] [place] [address] 52093- 4942 Oct, [facility] [id number] [address] 1167 Sep, [facility] [id number] [address] 4052 Sep, [facility] [address] [address] 9[address] Sep, [facility] [address] [address] Sep, Encounter for well woman exam with routine gynecological exam Z01.419 ; Screening for STDs (sexually transmitted diseases) Z11.3 ; Screening breast examination Z12.31 and Overweight (BMI 25.0-29.9) E66.3 [facility] [address] [address] 5[address] Sep, [facility] [address] [address]- 2276 Sep, [facility] [address] [address] 5812 Sep, [facility] [address] [address]- 0533 August, [facility] [address] [address] 4695 August, [facility] [address] [address] August, Type 2 diabetes mellitus with diabetic neuropathy, without long-term current use of insulin E11.40 and Sprain of right ankle, unspecified ligament, initial encounter S93.401A [facility] [id number] [place] [address] 39652- 3130 August, [facility] [id number] [place] [address] 20997- 8314 August, [facility] [id number] [place] [address] 48357- 8353 August, [facility] [id number] [place] [address] 98595- 8396 August, Gastroesophageal reflux disease, esophagitis presence not specified K21.9 [facility] [id number] [place] [address] 37742- 3018 August, [place] [id number] [place] [address] 92611- 2624 August, [facility] [id number] [place] [address] 71081- 8242 August, [facility] [id number] [place] [address] 43464- 4647 August, Type 2 diabetes mellitus with diabetic neuropathy, without long-term current use of insulin E11.40 and Elevated liver enzymes R74.8 [place] [id number] [place] [address] 37697- 7794 Jul, [facility] [id number] [place] [address] 81711- 5931 Jul, Cough R05 [facility] [id number] [place] [address] 06134- 4776 Jul, [facility] [id number] [place] [address] 65617- 7811 Jul, [facility] [id number] [place] [address] 51116- 2254 Jul, Bipolar affective disorder, currently depressed, moderate F31.32 ; Vascular dementia without behavioral disturbance F01.50 and Generalized anxiety disorder F41.1 [facility] [address] [address]- 1668 24 Jul, 2017 [facility] [address] 37879- 7616 Jul, Type 2 diabetes mellitus with diabetic neuropathy, without long-term current use of insulin E11.40 and Elevated liver enzymes R74.8 [facility] [address] 53894- 8769 Jul, [facility] [address] 90200- 7551 Jul, [facility] [address] 45616- 6917 Jul, [facility] [address] 20033- 4870 Jul, Post-menopausal Z78.0 [facility] [address] 35378- 4609 Jul, Stress incontinence of urine N39.3 [facility] [id number] [place] [address] 13207- 9023 Jul, [facility] [id number] [place] [address] 69490- 8497 Jul, [facility] [id number] [place] [address] 69326- 7274 Jul, Stress incontinence of urine N39.3 and Cough R05 [facility] [address] 72942- 1241 Jul, [facility] [address] 79875- 1755 Jul, [facility] [address] 95135- 5041 Jul, [facility] [id number] [place] [address] 37512- 7075 Jul, Gastroesophageal reflux disease, esophagitis presence not specified K21.9 [facility] [id number] [place] [address] 59260- 6589 29 Jun, 2017 Diabetic polyneuropathy associated with type 2 diabetes mellitus E11.42 [place] [address] 22978- 2845 Jun, Diabetic polyneuropathy associated with type 2 diabetes mellitus E11.42 ; Coronary artery disease involving inaja coronary artery of inaja heart with other form of angina pectoris I25.118 and Paroxysmal atrial fibrillation I48.0 [place] [id number] [place] [address] 79859- 3612 Jun, [place] [id number] [place] [address] 88488- 5584 Jun, [place] [id number] [place] [address] 96001- 4676 Jun, Gastroenteritis K52.9 [place] [id number] [place] [address] 45922- 1654 Jun, Gastroenteritis K52.9 [facility] [id number] [place] [address] 04039- 1552 Jun, [place] [id number] [place] [address] 54268- 9194 Jun, [facility] [id number] [place] [address] 95954- 4727 Jun, Sprain of right ankle, unspecified ligament, initial encounter S93.401A ; Type 2 diabetes mellitus with diabetic neuropathy, without long-term current use of insulin E11.40 ; Atherosclerosis of inaja artery of both lower extremities with intermittent claudication I70.213 ; 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 ; Chronic atrial fibrillation I48.2 and Crohn''s disease without complication, unspecified gastrointestinal tract location K50.90 [facility] [address] [address] 17 Jun, 2017 Cough R05 and Chronic obstructive pulmonary disease with acute lower respiratory infection J44.0 [facility] [id number] [place] [address] 15125- 9337 16 Jun, 2017 [facility] [address] [place] [address] 69562- 2124 15 Jun, 2017 Coughing R05 ; Unspecified atherosclerosis of inaja arteries of extremities, unspecified extremity I70.209 ; Type 2 diabetes mellitus with diabetic peripheral angiopathy without gangrene E11.51 ; Crohn''s disease without complication, unspecified gastrointestinal tract location K50.90 ; Other chronic pancreatitis K86.1 and Chronic atrial fibrillation I48.2 [facility] [address] [address] Jun, [facility] [id number] [place] [address] 56348- 9121 Jun, Bipolar affective disorder, currently depressed, moderate F31.32 ; Vascular dementia without behavioral disturbance F01.50 and Generalized anxiety disorder F41.1 [place] [address] [place] [address] 43065- 8852 May, Generalized anxiety disorder F41.1 [facility] [address] [address]- 8257 May, [facility] [id number] [place] [address] 99491- 1955 May, [facility] [id number] [place] [address] 58320- 0249 15 May, 2017 Coughing R05 [facility] [id number] [place] [address] 35900- 3835 09 May, 2017 [facility] [id number] [place] [address] 13286- 1895 May, Bipolar affective disorder, currently depressed, moderate F31.32 ; Vascular dementia without behavioral disturbance F01.50 and Generalized anxiety disorder F41.1 [facility] [id number] [place] [address] 19472- 1429 Apr, Generalized anxiety disorder F41.1 [facility] [id number] [place] [address] 32794- 4884 Apr, [place] [address] 51193- 5566 Apr, Vascular dementia without behavioral disturbance F01.50 ; Generalized anxiety disorder F41.1 and Bipolar affective disorder, currently depressed, moderate F31.32 [place] [address] 13082- 3852 Apr, Generalized anxiety disorder F41.1 [facility] [address] 28066 -4091 Apr, Cough R05 and Acute exacerbation of chronic obstructive pulmonary disease (COPD) J44.1 [place] [address] 78002- 8331 Apr, [facility] [address] 80029 -7007 Mar, Cough R05 and Cigarette nicotine dependence without complication F17.210 [place] [address] 35663- 2756 Mar, [place] [address] 65415- 0624 Feb, Generalized anxiety disorder F41.1 ; Major depressive disorder, recurrent episode, moderate F33.1 ; Vascular dementia without behavioral disturbance F01.50 and Unspecified psychosis F29 [place] [address] 17744- 0120 Feb, [place] [address] 55212- 2853 Feb, [place] [address] 86912- 7653 Feb, Generalized anxiety disorder F41.1 [place] [id number] [place] [address] 24748- 3331 Feb, Generalized anxiety disorder F41.1 [place] [id number] [place] [address] 53195- 2620 Feb, Dizziness R42 ; Chronic fatigue R53.82 ; Postconcussion syndrome F07.81 ; Fall, initial encounter W19.XXXA and Disorientation R41.0 [place] [address] 71815- 2420 03 Feb, 2017 Postconcussion syndrome F07.81 ; Injury of head, initial encounter S09.90XA ; Fall, initial encounter W19.XXXA ; Disorientation R41.0 and Acute cystitis with hematuria N30.01 [place] [address] 14066- 6299 Jan, Gastroesophageal reflux disease, esophagitis presence not specified K21.9 ; Post-menopausal Z78.0 and Migraine without aura and without status migrainosus, not intractable G43.009 [place] [address] 21886- 9154 Jan, [place] [id number] [place] [address] 76018- 3316 Jan, Generalized anxiety disorder F41.1 ; Major depressive disorder, recurrent episode, moderate F33.1 ; Vascular dementia without behavioral disturbance F01.50 and Unspecified psychosis F29 [place] [id number] [place] [address] 89342- 9718 Jan, Pneumonia of left lower lobe due to infectious organism J18.1 [place] [address] 64111- 5686 Jan, Migraine without aura and with status migrainosus, not intractable G43.001 [facility] [id number] [place] [address] 64655 -7051 Jan, Migraine without aura and without status migrainosus, not intractable G43.009 [facility] [id number] [place] [address] 63837- 1692 Dec, Hematoma T14.8 [facility] [id number] [place] [address] 59860- 2582 Dec, [facility] [address] 39598 -0082 Nov, Fatigue, unspecified type R53.83 [facility] [id number] [place] [address] 45856- 9524 Nov, Scabies B86 and Coronary artery disease involving inaja coronary artery of inaja heart with other form of angina pectoris I25.118 [facility] [id number] [place] [address] 29233- 7287 Nov, [facility] [id number] [place] [address] 50846- 7163 Nov, [facility] [id number] [place] [address] 80360- 0748 Oct, [facility] [id number] [place] [address] 76788- 1511 Oct, Generalized anxiety disorder F41.1 and Major depressive disorder, recurrent episode, moderate F33.1 [facility] [id number] [place] [address] 90293- 8714 Oct, Cramp of both lower extremities R25.2 [facility] [id number] [place] [address] 29593- 6793 Oct, Leg cramps R25.2 [facility] [id number] [place] [address] 86917- 4042 Oct, Chronic pain syndrome G89.4 [facility] [id number] [place] [address] 10067- 8074 Oct, [facility] [id number] [place] [address] 63048- 7727 14 Oct, 2016 [facility] [id number] [place] [address] 68112- 0546 11 Oct, 2016 Routine gynecological examination Z01.419 and Screening for breast cancer Z12.31 [facility] [id number] [place] [address] 59303- 1268 28 Sep, 2016 Diarrhea R19.7 [facility] [id number] [place] [address] 81943- 5678 26 Sep, 2016 Back pain M54.9 [place] [address] 82806- 7772 Sep, [place] [id number] [place] [address] 89913- 7219 Sep, [facility] [id number] [place] [address] 36028 -9307 August, Xeroderma Q80.9 [place] [id number] [place] [address] 09369- 7154 August, Dementia without behavioral disturbance, unspecified dementia type F03.90 [place] [id number] [place] [address] 16952- 1432 August, Chronic pain syndrome G89.4 [place] [id number] [place] [address] 50109- 7954 August, [place] [id number] [place] [address] 02992- 8915 August, Hyperlipidemia E78.5 ; Other fatigue R53.83 and Other specified hypotension I95.89 [facility] [id number] [place] [address] 60344 -1316 August, Dysuria R30.0 ; Other fatigue R53.83 and Other specified hypotension I95.89 [place] [id number] [place] [address] 89441- 5462 August, [facility] [id number] [place] [address] 12013- 5019 Jul, Pain in left knee M25.562 and Gastroenteritis K52.9 [facility] [id number] [place] [address] 57474- 6384 Jul, [place] [address] 59973- 5707 Jul, Diarrhea R19.7 [facility] [id number] [place] [address] 03456 -3155 Jul, Spider bite, accidental or unintentional, initial encounter T63.301A [place] [address] 33623- 9506 Jul, Primary osteoarthritis of right knee M17.11 and Arthritis M19.90 [place] [address] 04745- 8757 Jul, Generalized anxiety disorder F41.1 and Major depressive disorder, recurrent episode, moderate F33.1 [place] [address] 06068- 0418 Jul, Type 2 diabetes mellitus with diabetic polyneuropathy E11.42 and Temporal headache R51 [place] [id number] [place] [address] 60362- 5181 Jul, Back pain M54.9 [place] [id number] [place] [address] 92672- 4906 Jul, [place] [id number] [place] [address] 64380- 0168 Jul, [place] [address] 17156- 3022 Jun, Nausea R11.0 [facility] [id number] [place] [address] 46913 -3866 Jun, Acute suppurative otitis media of both ears without spontaneous rupture of tympanic membranes, recurrence not specified H66.003 and COPD exacerbation J44.1 [place] [address] 98352- 5073 Jun, Generalized anxiety disorder F41.1 [facility] [id number] [place] [address] 62618- 5148 16 Jun, 2016 [facility] [address] 21993 -2948 Jun, [facility] [address] 59203 -7034 Jun, Shortness of breath R06.02 and COPD exacerbation J44.1 [place] [address] 71481- 8471 10 Jun, 2016 Eczema, unspecified type L30.9 [place] [address] 18984- 0862 Jun, [place] [address] 89534- 8612 May, [place] [address] 11004- 3856 May, Muscle cramping R25.2 [place] [address] 79146- 2557 May, [place] [address] 64405- 7192 Apr, Diarrhea R19.7 [place] [address] 37200- 6739 Apr, [place] [address] 32167- 2383 Apr, Chronic pain syndrome G89.4 [place] [address] 93775- 3717 Apr, Cramp of both lower extremities R25.2 and Vascular dementia without behavioral disturbance F01.50 [place] [address] 75652- 6971 Apr, Type 2 diabetes mellitus with diabetic polyneuropathy E11.42 and Cigarette nicotine dependence without complication F17.210 [place] [address] 58398- 1521 Mar, Generalized anxiety disorder F41.1 [place] [address] 26314- 5260 Feb, Generalized anxiety disorder F41.1 and Major depressive disorder, recurrent episode, moderate F33.1 [place] [address] 18904- 9164 Feb, [facility] [address] 71030 -7642 Feb, Dysuria R30.0 and Acute cystitis with hematuria N30.01 [place] [address] 75314- 6941 Jan, [place] [address] 73103- 5609 Jan, [place] [address] 38744- 4257 Jan, [place] [address] 29624- 4408 Jan, [facility] [address] 66081 -3623 Jan, Wasp sting, accidental or unintentional, initial encounter T63.461A [place] [address] 28960- 1832 Jan, Encounter for immunization Z23 [place] [address] 50910- 0161 Jan, [place] [address] [place] [address]- 7199 Jan, [facility] [id number] [place] [address] 83930- 2104 28 Dec, 2015 Generalized anxiety disorder F41.1 and Major depressive disorder, recurrent episode, moderate F33.1 [facility] [address] [address]- 5477 21 Dec, 2015 Routine gynecological examination Z01.419 ; Postmenopausal Z78.0 ; Screening breast examination Z12.39 ; Osteopenia M85.80 and Breast cancer screening Z12.39 [facility] [id number] [place] [address] 73314- 2117 20 Dec, 2015 [facility] [id number] [place] [address] 77850- 5169 19 Dec, 2015 [facility] [id number] [place] [address] 16486- 9394 16 Dec, 2015 [facility] [id number] [place] [address] 24846- 2281 16 Dec, 2015 [facility] [id number] [place] [address] 76413- 3224 14 Dec, 2015 [facility] [id number] [place] [address] 91206- 9187 06 Dec, 2015 [facility] [id number] [place] [address] 19290- 4328 Nov, [facility] [id number] [place] [address] 66342 -7245 Nov, Cough R05 ; Other viral agents as the cause of diseases classified elsewhere B97.89 and Acute upper respiratory infection, unspecified J06.9 [facility] [id number] [place] [address] 28577- 9617 Nov, [facility] [id number] [place] [address] 83591- 1790 Nov, [facility] [id number] [address] 7089 Nov, [facility] [address] [address]- 2256 Nov, [facility] [address] [address]- 8420 Nov, [facility] [id number] [place] [address] 50036- 1576 Oct, [facility] [id number] [place] [address] 89392- 4056 Oct, [facility] [id number] [place] [address] 57920- 7946 Oct, [facility] [id number] [place] [address] 06004- 2263 Oct, Chronic pain syndrome G89.4 [facility] [id number] [place] [address] 55970- 0556 Sep, Generalized anxiety disorder F41.1 and Major depressive disorder, recurrent episode, moderate F33.1 [facility] [id number] [place] [address] 46540- 1810 Sep, [facility] [address] [address]- 4631 Sep, [facility] [address] [address]- 4985 Sep, Generalized anxiety disorder F41.1 [facility] [address] [address]- 7970 13 Sep, 2015 Cramp of both lower extremities R25.2 and Cervicalgia M54.2 [facility] [address] [address]- 8853 06 Sep, 2015 Generalized anxiety disorder F41.1 [facility] [address] [address]- 6683 Sep, [facility] [id number] [place] [address] 95833 -2373 August, Rash R21 ; Itching L29.9 and Allergic response, subsequent encounter T78.40XD [facility] [id number] [place] [address] 26086- 4755 August, Primary insomnia F51.01 [facility] [id number] [place] [address] 94656 -1407 August, Rash R21 ; Itching L29.9 and Allergic response, initial encounter T78.40XA [facility] [facility] [id number] [place] [address] 05686- 3349 August, [place] [address] 89954- 5292 August, Cramp of both lower extremities R25.2 [facility] [facility] [id number] [place] [address] 48565- 3210 August, Back pain M54.9 [facility] [facility] [id number] [place] [address] 89799- 5769 August, [facility] [facility] [id number] [place] [address] 99415- 2900 August, [facility] [id number] [place] [address] 93087 -5124 August, Cramp of both lower extremities R25.2 [place] [facility] [id number] [place] [address] 03421- 1442 August, [place] [facility] [id number] [place] [address] 65235- 1151 August, Syncope R55 ; Paroxysmal atrial fibrillation I48.0 ; Dementia without behavioral disturbance, unspecified dementia type F03.90 and Chronic pain syndrome G89.4 [place] [facility] [id number] [place] [address] 51557- 8091 August, Type 2 diabetes mellitus with diabetic polyneuropathy E11.42 and Syncope R55 [facility] [address] [address]- 1276 Jul, [facility] [address] [address] 2546 Jul, [facility] [address] [address] 2541 Jul, [facility] [id number] [place] [address] 09605 2547 Jul, [facility] [id number] [place] [address] 91138- 9206 Jul, [facility] [id number] [place] [address] 55728- 0027 Jul, UTI (urinary tract infection) N39.0 [facility] [id number] [place] [address] 25700- 6482 Jul, [facility] [address] [address]- 6457 18 Jul, 2015 Major depressive disorder, recurrent episode, moderate F33.1 and Generalized anxiety disorder F41.1 [facility] [address] [address]- 2101 Jul, Generalized anxiety disorder F41.1 [facility] [address] [address]- 1162 Jul, Diarrhea R19.7 [facility] [address] [address] 2544 Jul, [facility] [address] [address]- 0840 Jun, [facility] [address] [address]- 2563 Jun, Eczema L30.9 [facility] [address] [address] 254 Jun, [facility] [address] [facility] [id number] [address]- 4973 Jun, COPD (chronic obstructive pulmonary disease) J44.9 [facility] [address] [address]- 3156 Jun, [facility] [address] [address]- 2024 Jun, Major depressive disorder, recurrent episode, moderate F33.1 and Generalized anxiety disorder F41.1 [facility] [address] [address]- 7669 May, [facility] [address] [address]- 4977 May, UTI (urinary tract infection) N39.0 [facility] [address] [address]- 7866 May, [facility] [address] [address]- 5227 May, [facility] [address] [address]- 9075 May, [facility] [address] [address]- 8228 May, [facility] [address] [address]- 3859 Apr, Major depressive disorder, recurrent episode, moderate F33.1 and Generalized anxiety disorder F41.1 [facility] [id number] [address]- 0504 Apr, COPD (chronic obstructive pulmonary disease) J44.9 [facility] [id number] [address]- 1977 Apr, [facility] [id number] [address]- 8657 Apr, Atrial flutter I48.92 [facility] [address] [address]- 4101 Apr, [facility] [id number] [place] [address] 45898- 1623 Apr, [facility] [id number] [place] [address] 60649- 8156 Mar, [facility] [id number] [place] [address] 46112- 6639 Mar, [facility] [id number] [place] [address] 56325- 9037 Mar, [facility] [id number] [place] [address] 96930- 5923 Mar, Hyperlipidemia E78.5 ; Type 2 diabetes mellitus with diabetic polyneuropathy E11.42 ; Major depressive disorder, recurrent episode, moderate F33.1 and Chronic pain syndrome G89.4 [facility] [id number] [place] [address] 07055- 7657 Mar, [facility] [id number] [place] [address] 62845- 3723 Mar, [facility] [id number] [address]- 5146 Mar, [facility] [id number] [place] [address] 48284- 5344 Mar, [facility] [id number] [place] [address] 00676- 9146 Feb, COPD (chronic obstructive pulmonary disease) J44.9 and Back pain M54.9 [facility] [id number] [place] [address] 25429- 0262 Feb, [facility] [address] [address]- 5752 Feb, [facility] [id number] [place] [address] 66671- 0123 Feb, [facility] [address] [address]- 9082 Feb, [facility] [id number] [place] [address] 27296- 4042 Feb, [facility] [id number] [place] [address] 71444- 9970 Feb, [facility] [id number] [place] [address] 40810- 5289 Feb, [facility] [id number] [place] [address] 11081- 5493 Feb, [facility] [id number] [place] [address] 30483- 8854 Feb, Diabetes E11.9 ; Back pain M54.9 and COPD (chronic obstructive pulmonary disease) J44.9 [facility] [id number] [place] [address] 98472- 1465 Jan, [facility] [id number] [place] [address] 11571- 0753 Jan, Major depression, recurrent F33.9 and Generalized anxiety disorder F41.1 [facility] [address] [place] [address] 45343- 4627 Jan, Chronic pain G89.29 [facility] [id number] [place] [address] 87004- 5147 Jan, [facility] [id number] [place] [address] 08403- 6288 Jan, [facility] [id number] [place] [address] 89894- 8057 Jan, [facility] [address] [address]- 8371 Jan, [facility] [id number] [place] [address] 43230- 9356 Jan, Nicotine dependence F17.200 [facility] [address] [place] [address] 07611- 3058 Jan, Nicotine dependence F17.200 and Back pain M54.9 [facility] [id number] [place] [address] 83665- 0945 Jan, [facility] [id number] [place] [address] 02054- 8902 28 Dec, 2014 [facility] [id number] [place] [address] 26772- 2099 25 Dec, 2014 Anxiety, generalized 300.02 and Major depression, recurrent 296.30 [facility] [id number] [place] [address] 73428- 3344 24 Dec, 2014 [facility] [id number] [place] [address] 82756- 2226 21 Dec, 2014 [facility] [id number] [place] [address] 77671- 6857 17 Dec, 2014 [facility] [id number] [place] [address] 14389- 8671 15 Dec, 2014 [facility] [id number] [place] [address] 22815- 3827 14 Dec, 2014 [facility] [id number] [place] [address] 27730- 8272 11 Dec, 2014 [facility] [id number] [place] [address] 75905- 2154 10 Dec, 2014 [facility] [id number] [place] [address] 85474- 4760 08 Dec, 2014 Skin tear 879.8 [facility] [id number] [place] [address] 71348- 9538 08 Dec, 2014 Routine gynecological examination V72.31 ; Breast cancer screening V76.10 and Family history of breast cancer in first degree relative V16.3 [facility] [id number] [place] [address] 53418- 0138 Dec, [facility] [id number] [place] [address] 44733- 6525 Dec, [facility] [id number] [place] [address] 39085- 4526 Nov, [facility] [id number] [place] [address] 63042- 3462 Nov, [facility] [address] 31597- 0842 Nov, Poor balance 781.99 and Vascular dementia, uncomplicated 290.40 [facility] [address] 99201- 7212 Nov, [facility] [id number] [place] [address] 59175- 0930 Nov, Major depression, recurrent 296.30 and Anxiety, generalized 300.02 [facility] [id number] [place] [address] 28340- 6397 Nov, [facility] [id number] [place] [address] 32808- 8040 Nov, [facility] [id number] [place] [address] 44754- 1800 Nov, [facility] [id number] [place] [address] 60398- 8179 Nov, [facility] [id number] [place] [address] 24997- 0025 Nov, Vascular dementia, uncomplicated 290.40 and Lumbago 724.2 [facility] [id number] [place] [address] 36898- 4473 Nov, [facility] [id number] [place] [address] 37360- 8606 Nov, [facility] [id number] [place] [address] 64696- 5460 Nov, [facility] [address] [address]- 7639 Oct, [facility] [address] [address]- 9272 Oct, [facility] [address] [address]- 9885 Oct, [facility] [id number] [place] [address] 50536- 7089 Oct, COPD (chronic obstructive pulmonary disease) 496 and Hyperlipidemia 272.4 [facility] [address] [place] [address] 20757- 7495 Oct, Major depression, recurrent 296.30 and Anxiety, generalized 300.02 [facility] [address] [address]- 6056 Oct, [facility] [address] [address]- 3206 Oct, [facility] [address] [address]- 6406 Oct, [facility] [address] [address]- 5724 Sep, Lumbago 724.2 and Anxiety state, unspecified 300.00 [facility] [address] [address]- 9425 Sep, [facility] [address] [address]- 6161 Sep, [facility] [address] [address]- 5692 August, [facility] [address] 7804 August, Major depression, recurrent 296.30 ; Anxiety, generalized 300.02 and No condition on [place] II V71.09 [facility] [address] [place] [address]- 2176 August, [facility] [address] [id number] [place] [address]- 0068 August, [facility] [place] [facility] [address] [id number] [place] [address]- 5796 29 Jul, 2014 [facility] [address] [id number] [place] [address]- 7736 14 Jul, 2014 [facility] [place] [facility] [address] [id number] [place] [address]- 7131 Jul, [facility] [address] [id number] [place] [address]- 8924 30 Jun, 2014 [facility] [place] [facility] [address] [id number] [place] [address]- 6967 30 Jun, 2014 [facility] [place] [facility] [address] [id number] [place] [address]- 7153 Jun, [facility] [address] [id number] [place] [address]- 2634 27 Jun, 2014 [facility] [place] [facility] [address] [id number] [place] [address]- 9706 26 Jun, 2014 [facility] [address] [id number] [place] [address]- 8092 Jun, [facility] [place] [facility] [address] [id number] [place] [address]- 8522 23 Jun, 2014 [facility] [place] [facility] [address] [id number] [place] [address]- 7846 17 Jun, 2014 [facility] [place] [facility] [address] [id number] [place] [address]- 5925 13 Jun, 2014 [facility] [place] [facility] [address] [id number] [place] [address]- 2626 13 Jun, 2014 [facility] [place] [facility] [address] [id number] [place] [address]- 3753 10 Jun, 2014 [facility] [place] [facility] [address] [id number] [place] [address]- 3243 10 Jun, 2014 [facility] [place] [facility] [address] [id number] [place] [address]- 4991 Jun, [facility] [place] [facility] [address] [id number] [place] [address]- 3800 Jun, [facility] [place] [facility] [address] [id number] [place] [address]- 1302 Jun, 2014 [facility] [place] [facility] [address] [id number] [place] [address]- 7946 Jun, [facility] [place] [facility] [address] [id number] [place] [address]- 1358 May, 2014 [facility] [place] [facility] [address] [facility] [id number] [place] [address]- 1274 May, 2014 [facility] [place] [facility] [address] [facility] [id number] [place] [address]- 8662 May, 2014 [facility] [place] [facility] [address] [id number] [place] [address]- 7985 May, 2014 [facility] [place] [facility] [address] [facility] [id number] [place] [address]- 3086 May, 2014 [facility] [place] [facility] [address] [facility] [id number] [place] [address]- 4492 May, 2014 [facility] [place] [facility] [address] [id number] [place] [address]- 7023 May, 2014 [facility] [place] [facility] [address] [id number] [place] [address]- 5455 May, 2014 [facility] [place] [facility] [address] [facility] [id number] [place] [address]- 5909 May, 2014 [facility] [place] [facility] [address] [facility] [id number] [place] [address]- 9162 May, 2014 [facility] [place] [facility] [address] [id number] [place] [address]- 6326 May, 2014 [facility] [place] [facility] [address] [id number] [place] [address]- 5386 May, 2014 [facility] [place] [facility] [address] [id number] [place] [address]- 1686 May, 2014 [facility] [place] [facility] [address] [id number] [place] [address]- 6155 May, [facility] [place] [facility] [address] [id number] [place] [address]- 0379 Apr, [facility] [place] [facility] [address] [id number] [place] [address]- 7412 Apr, [facility] [place] [facility] [address] [id number] [place] [address]- 0664 Apr, [facility] [place] [facility] [address] [id number] [place] [address]- 4056 Apr, [facility] [place] [facility] [address] [id number] [place] [address] Apr, [facility] [place] [facility] [address] [id number] [place] [address] Apr, [facility] [place] [facility] [address] [id number] [place] [address] Apr, [facility] [place] [facility] [address] [id number] [place] [address] Apr, [facility] [place] [facility] [address] [id number] [place] [address] Apr, [facility] [place] [facility] [address] [id number] [place] [address] Apr, [facility] [place] [facility] [address] [id number] [place] [address] Apr, [facility] [place] [facility] [address] [id number] [place] [address] Apr, [facility] [place] [facility] [address] [id number] [place] [address] 31 Mar, 2014 [facility] [place] [facility] [address] [id number] [place] [address] 31 Mar, 2014 [facility] [place] [facility] [address] [id number] [place] [address] 30 Mar, 2014 [facility] [place] [facility] [address] [id number] [place] [address] 30 Mar, 2014 [facility] [place] [facility] [address] [id number] [place] [address] 29 Mar, 2014 [facility] [place] [facility] [address] [id number] [place] [address] 29 Mar, 2014 [facility] [place] [facility] [address] [id number] [place] [address] Mar, [facility] [place] [facility] [address] [id number] [place] [address] 19 Mar, 2014 [facility] [place] [facility] [address] [id number] [place] [address] 15 Mar, 2014 [facility] [place] [facility] [address] [id number] [place] [address] 15 Mar, 2014 [facility] [place] [facility] [address] [id number] [place] [address] 15 Mar, 2014 [facility] [place] [facility] [address] [id number] [address] 15 Mar, 2014 [facility] [place] [facility] [address] [id number] [place] [address] 15 Mar, 2014 [facility] [place] [facility] [address] [id number] [place] [address] 15 Mar, 2014 [facility] [place] [facility] [address] [id number] [place] [address] 08 Mar, 2014 [facility] [place] [facility] [address] [id number] [place] [address] Mar, [facility] [place] [facility] [address] [id number] [place] [address] Mar, [facility] [place] [facility] [address] [id number] [place] [address] Mar, [facility] [place] [facility] [address] [id number] [place] [address] Mar, [facility] [place] [facility] [address] [id number] [place] [address] Mar, [facility] [place] [facility] [address] [id number] [place] [address] Feb, [facility] [place] [facility] [address] [id number] [place] [address] Feb, [facility] [place] [facility] [address] [id number] [place] [address] Feb, [facility] [place] [facility] [address] [id number] [place] [address] Feb, [facility] [place] [facility] [address] [id number] [place] [address] 384[address] Feb, [facility] [place] [facility] [address] [facility] [id number] [place] [address] 2407 Feb, [facility] [place] [facility] [address] [id number] [place] [address] 4575 Feb, [facility] [place] [facility] [address] [id number] [place] [address] 8110 Feb, [facility] [place] [facility] [address] [id number] [place] [address] 9883 Feb, [facility] [place] [facility] [address] [id number] [place] [address] 3695 Feb, [facility] [place] [facility] [address] [id number] [place] [address] 8700 Feb, [facility] [place] [facility] [address] [id number] [place] [address] 7584 Feb, [facility] [place] [facility] [address] [id number] [place] [address] Feb, [facility] [place] [facility] [address] [id number] [place] [address] 5600 Feb, [facility] [place] [facility] [address] [id number] [place] [address] 2845 Feb, [facility] [place] [facility] [address] [id number] [place] [address]- 9587 Feb, [facility] [place] [facility] [address] [id number] [place] [address] 1076 Feb, [facility] [place] [facility] [address] [id number] [place] [address]- 2126 Jan, [facility] [place] [facility] [address] [id number] [place] [address]- 4868 Jan, [facility] [place] [facility] [address] [id number] [place] [address]- 2782 Jan, [facility] [place] [facility] [address] [id number] [place] [address]- 5220 Jan, [facility] [place] [facility] [address] [id number] [place] [address]- 1610 Jan, [facility] [place] [facility] [address] [id number] [address] 1865 Jan, [facility] [place] [facility] [address] [id number] [place] [address]- 2296 Jan, [facility] [place] [facility] [address] [id number] [place] [address]- 1380 Jan, [facility] [place] [facility] [address] [id number] [place] [address] Jan, [facility] [place] [facility] [address] [id number] [address] 1371 Jan, [facility] [place] [facility] [address] [id number] [place] [address] 8666 Jan, [facility] [place] [facility] [address] [id number] [place] [address] 3501 Dec, [facility] [place] [facility] [address] [id number] [place] [address]- 3765 Dec, [facility] [place] [facility] [address] [id number] [place] [address]- 0707 Nov, [facility] [place] [facility] [address] [id number] [place] [address]- 0760 Nov, [facility] [place] [facility] [address] [id number] [place] [address]- 6427 Nov, [facility] [place] [facility] [address] [id number] [place] [address] 5249 Nov, [facility] [place] [facility] [address] [id number] [place] [address]- 3838 Nov, [facility] [place] [facility] [address] [id number] [place] [address]- 3796 Nov, [facility] [place] [facility] [address] [id number] [place] [address]- 0535 Nov, [facility] [place] [facility] [address] [id number] [place] [address]- 8352 Oct, [facility] [place] [facility] [address] [id number] [place] [address]- 3987 Oct, [facility] [place] [facility] [address] [id number] [place] [address] 7103 Oct, [facility] [place] [facility] [address] [id number] [place] [address]- 7346 Oct, [facility] [place] [facility] [address] [id number] [place] [address]- 9527 Sep, [facility] [place] [facility] [address] [id number] [place] [address]- 6918 30 Sep, 2013 [facility] [place] [facility] [address] [id number] [place] [address] 9739 Sep, [facility] [place] [facility] [address] [id number] [place] [address]- 7393 Sep, [facility] [place] [facility] [address] [id number] [place] [address]- 0819 Sep, [facility] [place] [facility] [address] [id number] [place] [address]- 8521 Sep, [facility] [place] [facility] [address] [id number] [place] [address]- 2328 Sep, [facility] [place] [facility] [address] [id number] [place] [address]- 1847 Sep, [facility] [place] [facility] [address] [id number] [place] [address]- 5864 Sep, [facility] [place] [facility] [address] [id number] [place] [address]- 6758 Sep, [facility] [place] [facility] [address] [id number] [place] [address]- 7521 Sep, [facility] [place] [facility] [address] [id number] [place] [address]- 0234 Sep, [facility] [place] [facility] [address] [id number] [place] [address]- 4759 Sep, [facility] [place] [facility] [address] [id number] [place] [address]- 6919 Sep, [facility] [place] [facility] [address] [id number] [place] [address]- 8832 August, [facility] [place] [facility] [address] [id number] [place] [address]- 3325 August, [facility] [place] [facility] [address] [id number] [place] [address] 7008 August, [facility] [address] [id number] [place] [address]- 2263 August, [facility] [place] [facility] [address] [id number] [place] [address] 2996 August, [facility] [place] [facility] [address] [id number] [place] [address] August, [facility] [place] [facility] [address] [id number] [place] [address]- 3651 August, [facility] [place] [facility] [address] [id number] [place] [address]- 8932 August, [facility] [place] [facility] [address] [id number] [place] [address]- 1774 August, [facility] [place] [facility] [address] [id number] [place] [address] 1609 August, [facility] [place] [facility] [address] [id number] [place] [address] 3808 August, [facility] [place] [facility] [address] [id number] [place] [address]- 0621 August, [facility] [place] [facility] [address] [id number] [place] [address]- 5452 August, [facility] [place] [facility] [address] [id number] [place] [address] 2838 August, [facility] [place] [facility] [address] [id number] [place] [address]- 4757 August, [facility] [place] [facility] [address] [id number] [place] [address]- 0905 August, [facility] [place] [facility] [address] [id number] [place] [address]- 7180 August, [facility] [place] [facility] [address] [id number] [place] [address]- 0161 August, [facility] [place] [facility] [address] [id number] [place] [address]- 4023 August, [facility] [place] [facility] [address] [id number] [place] [address]- 3937 Jul, [facility] [place] [facility] [address] [id number] [place] [address]- 6419 Jul, [facility] [place] [facility] [address] [id number] [place] [address]- 2266 Jul, [facility] [place] [facility] [address] [id number] [place] [address]- 9906 Jul, [facility] [place] [facility] [address] [id number] [place] [address]- 8528 Jun, [facility] [place] [facility] [address] [id number] [place] [address]- 7692 Jun, [facility] [place] [facility] [address] [id number] [place] [address]- 0416 Jun, [facility] [place] [facility] [address] [id number] [place] [address]- 9365 Jun, [facility] [place] [facility] [address] [id number] [place] [address]- 4189 Jun, [facility] [place] [facility] [address] [id number] [place] [address]- 3688 Jun, [facility] [place] [facility] [address] [id number] [place] [address]- 6478 Jun, [facility] [place] [facility] [address] [id number] [place] [address]- 4836 Jun, [facility] [place] [facility] [address] [id number] [place] [address]- 1336 Jun, [facility] [place] [facility] [address] [id number] [place] [address]- 8244 Jun, [facility] [place] [facility] [address] [id number] [place] [address]- 2740 May, [facility] [place] [facility] [address] [id number] [place] [address]- 5445 May, [facility] [place] [facility] [address] [id number] [place] [address]- 6056 May, [facility] [place] [facility] [address] [id number] [place] [address]- 0026 May, [facility] [place] [facility] [address] [id number] [place] [address]- 2546 May, [facility] [place] [facility] [address] [id number] [place] [address]- 8577 May, [facility] [place] [facility] [address] [id number] [place] [address]- 3755 20 May, 2013 [facility] [place] [facility] [address] [facility] [id number] [place] [address]- 6382 May, [facility] [place] [facility] [address] [id number] [place] [address]- 9564 May, [facility] [place] [facility] [address] [id number] [place] [address]- 9370 18 May, 2013 [facility] [place] [facility] [address] [facility] [id number] [place] [address]- 2600 18 May, 2013 [facility] [place] [facility] [address] [facility] [id number] [place] [address]- 9883 17 May, 2013 [facility] [place] [facility] [address] [id number] [place] [address]- 2548 11 May, 2013 [facility] [place] [facility] [address] [id number] [place] [address]- 2546 11 May, 2013 [facility] [place] [facility] [address] [id number] [place] [address]- 7002 10 May, 2013 [facility] [place] [facility] [address] [facility] [id number] [place] [address]- 2546 07 May, 2013 [facility] [place] [facility] [address] [id number] [place] [address]- 2546 07 May, 2013 [facility] [address] [id number] [place] [address]- 2576 Apr, [facility] [address] [id number] [place] [address]- 2546 Apr, [facility] [address] [id number] [place] [address]- 2546 Apr, [facility] [address] [id number] [place] [address]- 2546 Apr, [facility] [address] [id number] [place] [address]- 4146 Apr, [facility] [address] [id number] [place] [address]- 8636 Apr, [facility] [address] [id number] [place] [address]- 6022 Apr, [facility] [address] [id number] [place] [address]- 8520 Mar, [facility] [address] [id number] [place] [address]- 6476 Mar, [facility] [address] [id number] [place] [address]- 9633 Mar, [facility] [address] [id number] [place] [address]- 0126 Mar, [facility] [address] [id number] [place] [address]- 5646 Mar, [facility] [place] [facility] [address] [id number] [place] [address]- 2546 Mar, [facility] [place] [facility] [address] [id number] [place] [address]- 2546 Mar, [facility] [place] [facility] [address] [id number] [place] [address]- 5854 Mar, [facility] [address] [id number] [place] [address]- 8637 Mar, [facility] [place] [facility] [address] [id number] [place] [address]- 4760 Mar, [facility] [place] [facility] [address] [id number] [place] [address]- 8447 Mar, [facility] [place] [facility] [address] [id number] [place] [address]- 2382 Feb, [facility] [place] [facility] [address] [id number] [place] [address]- 7905 Feb, [facility] [place] [facility] [address] [id number] [place] [address]- 7501 Feb, [facility] [place] [facility] [address] [id number] [place] [address]- 1216 Feb, [facility] [place] [facility] [address] [id number] [address]- 5552 Feb, [facility] [place] [facility] [address] [id number] [place] [address]- 0638 19 Feb, 2013 [facility] [place] [facility] [address] [id number] [address]- 3416 15 Feb, 2013 [facility] [place] [facility] [address] [id number] [address]- 4206 14 Feb, 2013 [facility] [place] [facility] [address] [id number] [address]- 9387 14 Feb, 2013 [facility] [place] [facility] [address] [id number] [place] [address]- 3921 13 Feb, 2013 [facility] [place] [facility] [address] [id number] [address]- 3637 13 Feb, 2013 [facility] [place] [facility] [address] [id number] [address]- 2765 12 Feb, 2013 [facility] [place] [facility] [address] [id number] [place] [address]- 8047 Feb, [facility] [place] [facility] [address] [id number] [place] [address]- 1955 Feb, [facility] [place] [facility] [address] [id number] [place] [address]- 2274 Feb, [facility] [place] [facility] [address] [id number] [place] [address]- 4125 Feb, [facility] [place] [facility] [address] [id number] [place] [address]- 0331 Jan, [facility] [place] [facility] [address] [id number] [place] [address]- 1329 Jan, [facility] [place] [facility] [address] [id number] [place] [address]- 9479 Jan, [facility] [place] [facility] [address] [id number] [place] [address]- 1803 Jan, [facility] [place] [facility] [address] [id number] [place] [address]- 9873 Jan, [facility] [place] [facility] [address] [id number] [place] [address]- 7550 Jan, [facility] [place] [facility] [address] [id number] [place] [address]- 2939 Jan, [facility] [place] [facility] [address] [id number] [place] [address]- 7288 10 Jan, 2013 [facility] [place] [facility] [address] [id number] [place] [address]- 4910 10 Jan, 2013 [facility] [place] [facility] [address] [id number] [place] [address]- 8411 27 Dec, 2012 [facility] [place] [facility] [address] [id number] [place] [address]- 9237 20 Dec, 2012 [facility] [place] [facility] [address] [id number] [place] [address]- 5160 19 Dec, 2012 [facility] [place] [facility] [address] [id number] [place] [address]- 8551 10 Dec, 2012 [facility] [place] [facility] [address] [id number] [place] [address]- 8009 04 Dec, 2012 [facility] [place] [facility] [address] [id number] [place] [address]- 254 Dec, [facility] [place] [facility] [address] [id number] [place] [address]- 6060 Nov, [facility] [place] [facility] [address] [id number] [place] [address]- 7311 Nov, [facility] [place] [facility] [address] [id number] [place] [address]- 8429 Nov, [facility] [place] [facility] [address] [id number] [place] [address]- 3260 Nov, [facility] [place] [facility] [address] [id number] [place] [address]- 4704 Nov, [facility] [place] [facility] [address] [id number] [place] [address]- 7425 Nov, [facility] [place] [facility] [address] [id number] [place] [address]- 1699 Nov, [facility] [place] [facility] [address] [id number] [place] [address]- 6219 Nov, [facility] [place] [facility] [address] [id number] [place] [address]- 1773 Nov, [facility] [place] [facility] [address] [id number] [place] [address]- 6098 Nov, [facility] [place] [facility] [address] [id number] [place] [address]- 4031 Oct, [facility] [place] [facility] [address] [id number] [place] [address]- 6089 Oct, [facility] [place] [facility] [address] [id number] [place] [address]- 1832 Oct, [facility] [place] [facility] [address] [id number] [place] [address]- 2244 Oct, [facility] [place] [facility] [address] [id number] [place] [address]- 1671 Oct, [facility] [place] [facility] [address] [id number] [place] [address] Oct, [facility] [place] [facility] [address] [id number] [place] [address]- 7182 Oct, [facility] [place] [facility] [address] [id number] [place] [address]- 6490 Oct, [facility] [place] [facility] [address] [id number] [place] [address]- 3278 Sep, [facility] [place] [facility] [address] [id number] [place] [address]- 1207 Sep, [facility] [place] [facility] [address] [id number] [place] [address]- 8329 Sep, [facility] [place] [facility] [address] [id number] [place] [address]- 7063 Sep, [facility] [place] [facility] [address] [id number] [place] [address]- 9882 Sep, [facility] [place] [facility] [address] [id number] [place] [address]- 8377 Sep, [facility] [place] [facility] [address] [id number] [place] [address]- 2101 Sep, [facility] [place] [facility] [address] [id number] [place] [address]- 1321 Sep, [facility] [place] [facility] [address] [id number] [place] [address]- 5259 August, [facility] [place] [facility] [address] [id number] [place] [address]- 1564 August, [facility] [place] [facility] [address] [id number] [place] [address]- 0831 August, [facility] [place] [address] [id number] [place] [address]- 1270 August, [facility] [address] [id number] [place] [address]- 4001 August, [facility] [address] [id number] [place] [address]- 3511 Jul, [facility] [address] [id number] [place] [address]- 3207 Jul, [facility] [address] [id number] [place] [address]- 0830 Jul, [facility] [address] [id number] [place] [address]- 4304 Jul, [facility] [address] [id number] [place] [address]- 5756 Jul, [facility] [address] [id number] [place] [address]- 6245 Jun, [facility] [address] [id number] [place] [address]- 4414 18 Jun, 2012 [facility] [address] [id number] [place] [address]- 4743 15 Jun, 2012 [facility] [address] [id number] [place] [address]- 7615 14 Jun, 2012 [facility] [address] [id number] [place] [address] 12 Jun, 2012 [facility] [address] [id number] [place] [address] 08 Jun, 2012 [facility] [address] [id number] [place] [address] 08 Jun, 2012 [facility] [address] [id number] [place] [address] Jun, [facility] [address] [id number] [place] [address] Jun, [facility] [address] [id number] [place] [address] May, [facility] [address] [id number] [place] [address] May, [facility] [address] [id number] [place] [address] May, [facility] [address] [id number] [place] [address] May, [facility] [address] [id number] [place] [address] Apr, [facility] [address] [id number] [place] [address] Apr, [facility] [address] [id number] [place] [address] Apr, [facility] [address] [id number] [place] [address] Apr, [facility] [address] [id number] [address] Apr, [facility] [address] [id number] [place] [address] Apr, [facility] [address] [id number] [address] Apr, [facility] [address] [id number] [place] [address] Mar, [facility] [place] [id number] Mar, [facility] [address] [id number] [place] [address] Mar, [facility] [address] [id number] [address] Mar, [facility] [place] [facility] [address] [id number] [place] [address] Mar, [facility] [place] [facility] [address] [id number] [place] [address] Mar, [facility] [place] [facility] [address] [id number] [place] [address] Mar, [facility] [place] [facility] [address] [id number] [place] [address] Mar, [facility] [place] [facility] [address] [id number] [place] [address] Mar, [facility] [place] [facility] [address] [id number] [place] [address] Mar, [facility] [place] [facility] [address] [id number] [place] [address] Mar, [facility] [place] [facility] [address] [id number] [place] [address] Mar, [facility] [place] [facility] [address] [id number] [place] [address] Mar, [facility] [place] [facility] [address] [id number] [place] [address] Mar, [facility] [place] [facility] [address] [id number] [place] [address] Mar, [facility] [place] [facility] [address] [id number] [place] [address] Mar, [facility] [place] [facility] [address] [id number] [place] [address] Mar, [facility] [place] [facility] [address] [id number] [place] [address] Feb, [facility] [place] [facility] [address] [id number] [place] [address] Feb, [facility] [place] [facility] [address] [id number] [place] [address] Feb, [facility] [place] [facility] [address] [id number] [place] [address]- [address] Feb, [facility] [place] [facility] [address] [id number] [place] [address] 28[address] Feb, [facility] [place] [facility] [address] [id number] [place] [address] Feb, [facility] [place] [facility] [address] [id number] [place] [address] Feb, [facility] [place] [facility] [address] [id number] [place] [address], [place] [address]- [address] Feb, [facility] [place] [facility] [address] [id number] [place] [address] Feb, [facility] [place] [facility] [address] [id number] [place] [address]- 7965 Feb, [facility] [place] [facility] [address] [id number] [place] [address]- 280[address] Feb, [facility] [place] [facility] [address] [id number] [place] [address]- [address] Feb, [facility] [place] [facility] [address] [facility] [id number] [place] [address] Feb, [facility] [place] [facility] [address] [id number] [place] [address] Feb, [facility] [place] [facility] [address] [id number] [place] [address] 49[address] Feb, [facility] [place] [facility] [address] [id number] [place] [address]- 4046 Feb, [facility] [place] [facility] [address] [facility] [id number] [place] [address] 39[address] Jan, [facility] [place] [facility] [address] [id number] [place] [address]- [address] Jan, [facility] [place] [facility] [address] [id number] [place] [address]- 96[address] Jan, [facility] [place] [facility] [address] [id number] [place] [address]- [address] Jan, [facility] [place] [facility] [address] [id number] [place] [address]- 9[address] Jan, [facility] [place] [facility] [address] [id number] [place] [address]- [address] Jan, [facility] [place] [facility] [address] [id number] [place] [address] 34[address] Jan, [facility] [place] [facility] [address] [id number] [place] [address]16 Jan, [facility] [place] [facility] [address] [facility] [id number] [place] [address] 87[address] Jan, [facility] [place] [facility] [address] [id number] [address] Jan, [facility] [place] [facility] [address] [id number] [address] Jan, [facility] [place] [facility] [address] [id number] [place] [address] 9[address] Jan, [facility] [place] [facility] [address] [facility] [id number] [place] [address]- [address] Jan, [facility] [place] [facility] [address] [id number] [address]- 56[address] Jan, [facility] [place] [facility] [address] [id number] [address]- 67[address] Jan, [facility] [place] [facility] [address] [id number] [address]- 65[address] Jan, [facility] [place] [facility] [address] [facility] [id number] [place] [address]- [address] Jan, [facility] [place] [facility] [address] [id number] [place] [address]46 21 Dec, 2011 [facility] [place] [facility] [address] [id number] [place] [address] 25[address] 20 Dec, 2011 [facility] [place] [facility] [address] [id number] [place] [address] 25[address] 18 Dec, 2011 [facility] [place] [facility] [address] [id number] [place] [address] 2546 18 Dec, 2011 [facility] [place] [facility] [address] [id number] [place] [address] 2546 10 Dec, 2011 [facility] [place] [facility] [address] [id number] [place] [address] 2546 10 Dec, 2011 [facility] [place] [facility] [address] [id number] [place] [address] 2546 10 Dec, 2011 [facility] [place] [facility] [address] [id number] [place] [address] 07 Dec, 2011 [facility] [place] [facility] [address] [id number] [place] [address] 30 Nov, 2011 [facility] [place] [facility] [address] [id number] [place] [address] 3636 25 Nov, 2011 [facility] [place] [facility] [address] [id number] [place] [address] 24 Nov, 2011 [facility] [place] [facility] [address] [id number] [place] [address] 2546 Nov, [facility] [place] [facility] [address] [id number] [place] [address] 2546 Nov, [facility] [place] [facility] [address] [id number] [place] [address] 2546 16 Nov, 2011 [facility] [place] [facility] [address] [id number] [place] [address] 2546 30 Oct, 2011 [facility] [place] [facility] [address] [id number] [place] [address]46 30 Oct, 2011 [facility] [place] [facility] [address] [id number] [place] [address] Oct, [facility] [place] [facility] [address] [id number] [place] [address] 97[address] Oct, [facility] [place] [facility] [address] [id number] [place] [address] Oct, [facility] [place] [facility] [address] [id number] [place] [address]35 Oct, [facility] [place] [facility] [address] [id number] [place] [address] 9965 Oct, [facility] [place] [facility] [address] [id number] [place] [address] Sep, [facility] [place] [facility] [address] [id number] [place] [address] 49[address] Sep, [facility] [place] [facility] [address] [id number] [place] [address] 7547 Sep, [facility] [place] [facility] [address] [id number] [place] [address] Sep, [facility] [place] [facility] [address] [id number] [place] [address] 9527 Sep, [facility] [place] [facility] [address] [id number] [place] [address]93 15 Sep, 2011 [facility] [place] [facility] [address] [id number] [place] [address]448 14 Sep, 2011 [facility] [place] [facility] [address] [id number] [place] [address] 2871 Sep, [facility] [place] [facility] [address] [id number] [place] [address]76 05 Sep, 2011 [facility] [place] [facility] [address] [id number] [place] [address]- 6474 04 Sep, 2011 [facility] [place] [facility] [address] [id number] [place] [address]4 August, [facility] [address] [id number] [place] [address] 46[address] August, [facility] [place] [facility] [address] [id number] [place] [address] 9462 August, [facility] [place] [facility] [address] [id number] [place] [address] August, [facility] [place] [facility] [address] [id number] [place] [address] August, [facility] [place] [facility] [address] [id number] [place] [address] 9177 Jul, [facility] [place] [facility] [address] [id number] [place] [address] 7096 Jul, [facility] [place] [facility] [address] [id number] [place] [address] 1262 Jul, [facility] [place] [facility] [address] [id number] [place] [address] 7299 Jul, [facility] [place] [facility] [address] [id number] [place] [address] 30[address] Jul, [facility] [place] [facility] [address] [id number] [place] [address] 23[address] Jul, [facility] [place] [facility] [address] [id number] [place] [address] 3556 Jul, [facility] [place] [facility] [address] [id number] [address] Jun, [facility] [place] [facility] [address] [id number] [place] [address] 9599 Jun, [facility] [place] [facility] [address] [id number] [place] [address] 7070 Jun, [facility] [place] [facility] [address] [id number] [place] [address] 3736 Jun, [facility] [place] [facility] [address] [id number] [place] [address] 3976 Jun, [facility] [place] [facility] [address] [id number] [place] [address] 0331 May, [facility] [place] [facility] [address] [id number] [place] [address] 5416 May, [facility] [place] [facility] [address] [id number] [place] [address] 4506 May, [facility] [place] [facility] [address] [id number] [place] [address] 2543 May, [facility] [place] [facility] [address] [id number] [place] [address], [place] [address]- [address]863 May, [facility] [place] [facility] [address] [facility] [id number] [place] [address] 3292 May, [facility] [place] [facility] [address] [id number] [place] [address]- [address] Apr, [facility] [place] [facility] [address] [id number] [place] [address] 9143 Mar, [facility] [place] [facility] [address] [id number] [place] [address] 7683 Feb, [facility] [place] [facility] [address] [facility] [id number] [place] [address] 0770 Feb, [facility] [place] [facility] [address] [facility] [id number] [place] [address] 2541 Feb, [facility] [place] [facility] [address] [id number] [place] [address]- 2540 Feb, [facility] [place] [facility] [address] [facility] [id number] [place] [address] 2945 Jan, [facility] [place] [facility] [address] [facility] [id number] [place] [address] 0636 Jan, [facility] [place] [facility] [address] [facility] [id number] [place] [address]- 6283 Jan, [facility] [place] [facility] [address] [id number] [place] [address] 8328 24 Jan, 2011 [facility] [place] [facility] [address] [id number] [place] [address] 2836 14 Jan, 2011 [facility] [place] [facility] [address] [id number] [place] [address] 7198 19 Dec, 2010 [facility] [place] [facility] [address] [id number] [place] [address] 0172 Oct, [facility] [place] [facility] [address] [id number] [place] [address] 8410 August, [facility] [place] [facility] [address] [id number] [place] [address]- 6912 29 Mar, 2010 [facility] [place] [facility] [address] [id number] [place] [address]- 4079 27 Mar, 2010 [facility] [place] [facility] [address] [id number] [place] [address]- 3278 16 Mar, 2010 [facility] [place] [facility] [address] [id number] [place] [address]- 1559 15 Mar, 2010 [facility] [place] [facility] [address] [id number] [place] [address]- 7563 15 Mar, 2010 [facility] [place] [facility] [address] [id number] [place] [address]- 7470 08 Mar, 2010 [facility] [place] [facility] [address] [id number] [place] [address]- 0134 03 Mar, 2010 [facility] [place] [facility] [address] [id number] [place] [address]- 4907 24 Feb, 2010 [facility] [place] [facility] [address] [id number] [place] [address]- 2547 24 Feb, 2010 [facility] [place] [facility] [address] [id number] [place] [address] 15 Feb, 2010 [facility] [place] [facility] [address] [id number] [address] 6721 19 Jan, 2010 [facility] [place] [facility] [address] [id number] [place] [address]- 9413 18 Jan, 2010 [facility] [place] [facility] [address] [id number] [address] 2740 18 Jan, 2010 [facility] [place] [facility] [address] [id number] [place] [address]- 0917 Nov, [facility] [place] [facility] [address] [id number] [place] [address]- 1848 14 Sep, 2009 [facility] [place] [facility] [id number] [place] [address], [place] [address] 3624 August, [facility] [place] [facility] [address] [id number] [place] [address]- 3580 Mar, [facility] [place] [facility] [address] [facility] [id number] [address]- 2212 Mar, [facility] [place] [facility] [address] [id number] [place] [address]- 0562 17 Feb, 2009 [facility] [place] [facility] [address] [facility] [id number] [address]- 2844 10 Feb, 2009 [facility] [place] [facility] [address] [facility] [id number] [place] [address]- 7723 10 Feb, 2009 [facility] [place] [facility] [address] [id number] [address]- 5809 10 Feb, 2009 [facility] [place] [facility] [address] [id number] [place] [address]- 3542 06 Feb, 2009 [facility] [place] [facility] [address] [id number] [address]- 9514 27 Jan, 2009 [facility] [place] [facility] [address] [facility] [id number] [place] [address]- 5410 26 Jan, 2009 [facility] [place] [facility] [address] [facility] [id number] [address]- 1627 20 Jan, 2009 [facility] [place] [facility] [address] [id number] [address] [address] Jan, [facility] [address] [id number] [address] 3695 Nov, [facility] [address] [id number] [address]- 7787 Sep, [facility] [address] [id number] [address]- 4454 August, [facility] [address] [id number] [address]- 2367 Jul, [facility] [address] [id number] [address] 6199 May, IMMUNIZATIONS No Known Immunizations SOCIAL HISTORY [...] Knee Surgery 07/16/17 Hospitalization History [facility] [place]- left hand/wrist swelling 10/09/2017
[2018-01-01 12:33] LABS: BASOPHILS % (AUTO) 0 % (0-10); EOSINOPHILS # (AUTO) 0.1 10^3/uL (0.0-0.3); EOSINOPHILS % (AUTO) 1 % (0-10); HEMATOCRIT 41 % (35-52); LYMPHOCYTES # (AUTO) 1.2 X 10^3 (1.0-4.0); LYMPHOCYTES % (AUTO) 14 % (12-44); MEAN CORPUSCULAR HEMOGLOBIN 28 PG (25-34); MEAN CORPUSCULAR HGB CONC 32 G/DL (32-36); MEAN CORPUSCULAR VOLUME 87 FL (80-99); MEAN PLATELET VOLUME 9.9 FL (7.4-10.4); MONOCYTES # (AUTO) 0.4 X 10^3 (0.0-1.0); MONOCYTES % (AUTO) 5 % (0-12); NEUTROPHILS # (AUTO) 6.9 X 10^3 (1.8-7.8); NEUTROPHILS % (AUTO) 80 % (42-75); PLATELET COUNT 302 10^3/uL (130-400); RED BLOOD COUNT 4.65 10^6/uL (4.35-5.85); RED CELL DISTRIBUTION WIDTH 17.1 % (10.0-14.5); WHITE BLOOD COUNT 8.6 10^3/uL (4.3-11.0)
--- OUTSIDE RECORDS SUMMARY | 2018-01-01 12:34 | XMS REPORT ---
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 Name Role Phone SENAIT DUNLAP Unavailable PROBLEMS Type Condition ICD9-CM Code BUA05-IW Code Onset Dates Condition Status SNOMED Code Problem History of common bile duct surgery Z98.89 Active 904771108 Problem Barretts esophagus K22.70 Active 257578141 Problem 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 Active 18123124 Problem Colon polyp K63.5 Active 50512120 Problem Bilateral low back pain without sciatica M54.5 Active 555321911 Problem Screening breast examination Z12.39 Active 824138043 Problem Postmenopausal Z78.0 Active 01833726 Problem Osteopenia M85.80 Active 774879932 Problem Cigarette nicotine dependence without complication F17.210 Active 82384928 Problem Type 2 diabetes mellitus with diabetic peripheral angiopathy without gangrene E11.51 Active 479070273 Problem Vascular dementia without behavioral disturbance F01.50 Active [id number] Problem Unspecified atherosclerosis of [place] arteries of extremities, unspecified extremity I70.209 Active 179842074110530 Problem Arthritis M19.90 Active 2379258 Problem Chronic atrial fibrillation I48.2 Active 101917161 Problem Chronic obstructive pulmonary disease with acute lower respiratory infection J44.0 Active 684712381 Problem Other chronic pancreatitis K86.1 Active 769983676 Problem Stress incontinence of urine N39.3 Active 79751276 Problem Controlled type 2 diabetes mellitus without complication, without long -term current use of insulin E11.9 Active 388662864 Problem Unspecified psychosis F29 Active 14729925 Problem Xeroderma Q80.9 Active 74691203 Problem COPD (chronic obstructive pulmonary disease) J44.9 Active 64766587 Problem Dementia without behavioral disturbance, unspecified dementia type F03.90 Active 53638217 Problem Gastroparesis K31.84 Active 738673909 Problem Type 2 diabetes mellitus with diabetic neuropathy, without long-term current use of insulin E11.40 Active 74893407 Problem Osteoporosis M81.0 Active 63543555 Problem Atherosclerosis of [place] artery of both lower extremities with intermittent claudication I70.213 Active 909908953126178 Problem Hyperlipidemia E78.5 Active 05010466 Problem Diabetic polyneuropathy associated with type 2 diabetes mellitus E11.42 Active 98281735 Problem Essential tremor G25.0 Active 73297437 Problem 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.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 Active 8233236601595 Problem Generalized anxiety disorder F41.1 Active 796195084 Problem Gastroesophageal reflux disease, esophagitis presence not specified K21.9 Active 243561973 Problem Coronary artery disease involving [place] coronary artery of [place] heart with other form of angina pectoris I25.118 Active 1467906644860 Problem Postconcussion syndrome F07.81 Active 13776737 Problem Chronic pain syndrome G89.4 Active 028539248 Problem Migraine without aura and without status migrainosus, not intractable G43.009 Active 713968288 Problem Paroxysmal atrial fibrillation I48.0 Active 448670961 Problem Migraine without aura and with status migrainosus, not intractable G43.001 Active 924535052 Problem Cervicalgia M54.2 Active 2530897733727 Problem Acute exacerbation of chronic obstructive pulmonary disease (COPD) J44.1 Active 044145826 Problem Major depressive disorder, recurrent episode, moderate F33.1 Active 159852241 Problem Crohn''s disease without complication, unspecified gastrointestinal tract location K50.90 Active 98953165 Problem Chronic fatigue R53.82 Active 25040051 Problem Bipolar affective disorder, currently depressed, moderate F31.32 Active 533394030 ALLERGIES Substance Reaction Event Type Date Status Penicillin V Potassium rash Drug Allergy Jun, Active Neosporin rash Drug Allergy Jun, Active Ibuprofen rash Drug Allergy Jun, Active Glipizide hives, nausea Drug Allergy Jun, Active ENCOUNTERS Encounter Location Date Diagnosis [facility] [address] [facility] [id number] [address] Nov, [facility] [address] [facility] [id number], [place] [address] Nov, [facility] [address] [facility] [id number], [place] [address] Oct, [facility] [address] [address] Oct, [facility] [address] [id number] [address] Oct, [facility] [address] [address] Oct, Edema of both legs R60.0 [facility] [id number] [place] [address] 28902- 2038 Oct, [facility] [id number] [place] [address] 01933- 2673 Sep, [facility] [id number] [place] [address] 86646- 7569 Sep, [facility] [id number] [place] [address] 92570- 9751 Sep, [facility] [address], [place] [address] Sep, Encounter for well woman exam with routine gynecological exam Z01.419 ; Screening for STDs (sexually transmitted diseases) Z11.3 ; Screening breast examination Z12.31 and Overweight (BMI 25.0-29.9) E66.3 [facility] [address], [place] [address] Sep, [facility] [address], [place] [address] Sep, [facility] [address], [place] [address] 6789 Sep, [facility] [address], [place] [address] 6[address] August, [facility] [address], [place] [address] 2[address] August, [facility] [id number] [place] [address] 80675- 1834 August, Type 2 diabetes mellitus with diabetic neuropathy, without long-term current use of insulin E11.40 and Sprain of right ankle, unspecified ligament, initial encounter S93.401A [facility] [id number] [place] [address] 21674- 4414 August, [facility] [id number] [place] [address] 75063- 5890 August, [facility] [id number] [place] [address] 80356- 9776 August, [facility] [id number] [place] [address] 35271- 7602 August, Gastroesophageal reflux disease, esophagitis presence not specified K21.9 [facility] [address] [place] [address] 57021- 5976 August, [facility] [id number] [place] [address] 27868- 1571 August, [facility] [id number] [place] [address] 32120- 7078 August, [facility] [id number] [place] [address] 37556- 2318 August, Type 2 diabetes mellitus with diabetic neuropathy, without long-term current use of insulin E11.40 and Elevated liver enzymes R74.8 [facility] [id number] [place] [address] 38522- 1850 Jul, [facility] [id number] [place] [address] 83268- 8785 Jul, Cough R05 [facility] [address] 78927- 3874 Jul, [facility] [id number] [place] [address] 97509- 5940 Jul, [facility] [id number] [place] [address] 94611- 2499 Jul, Bipolar affective disorder, currently depressed, moderate F31.32 ; Vascular dementia without behavioral disturbance F01.50 and Generalized anxiety disorder F41.1 [facility] [address] 74113- 4776 Jul, [facility] [address] 43183- 8326 Jul, Type 2 diabetes mellitus with diabetic neuropathy, without long-term current use of insulin E11.40 and Elevated liver enzymes R74.8 [facility] [address] 77751- 5652 Jul, [facility] [address] 75326- 1689 Jul, [facility] [address] 18103- 5997 Jul, [facility] [address] 73020- 7042 Jul, Post-menopausal Z78.0 [facility] [address] 08363- 0052 Jul, Stress incontinence of urine N39.3 [facility] [id number] [place] [address] 17491- 8832 Jul, [facility] [address] 48308- 7205 Jul, [facility] [address] 81650- 2426 Jul, Stress incontinence of urine N39.3 and Cough R05 [facility] [address] 04323- 7734 Jul, [facility] [address] 93740- 3450 Jul, [facility] [address] 24765- 2216 Jul, [facility] [address] [place] [address] 88493683- 1006 Jul, Gastroesophageal reflux disease, esophagitis presence not specified K21.9 [facility] [id number] [place] [address] 53979- 1454 29 Jun, 2017 Diabetic polyneuropathy associated with type 2 diabetes mellitus E11.42 [facility] [id number] [place] [address] 11649- 4937 28 Jun, 2017 Diabetic polyneuropathy associated with type 2 diabetes mellitus E11.42 ; Coronary artery disease involving [place] coronary artery of [place] heart with other form of angina pectoris I25.118 and Paroxysmal atrial fibrillation I48.0 [facility] [id number] [place] [address] 32225- 2219 Jun, [place] [address] [place] [address] 12923- 3182 Jun, [facility] [id number] [place] [address] 42606- 2540 Jun, Gastroenteritis K52.9 [facility] [id number] [place] [address] 74873 2546 Jun, Gastroenteritis K52.9 [facility] [address] [address]- 5565 Jun, [facility] [id number] [place] [address] 14820- 5319 Jun, [facility] [address] [place] [address] 65807- 2547 Jun, Sprain of right ankle, unspecified ligament, initial encounter S93.401A ; Type 2 diabetes mellitus with diabetic neuropathy, without long-term current use of insulin E11.40 ; Atherosclerosis of [place] artery of both lower extremities with intermittent claudication I70.213 ; 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.118 ; Chronic atrial fibrillation I48.2 and Crohn''s disease without complication, unspecified gastrointestinal tract location K50.90 [facility] [address] [address] 17 Jun, 2017 Chronic obstructive pulmonary disease with acute lower respiratory infection J44.0 and Cough R05 [facility] [address] [place] [address] 45832- 2070 Jun, [facility] [id number] [place] [address] 42991- 3955 Jun, Coughing R05 ; Unspecified atherosclerosis of [place] arteries of extremities, unspecified extremity I70.209 ; Type 2 diabetes mellitus with diabetic peripheral angiopathy without gangrene E11.51 ; Crohn''s disease without complication, unspecified gastrointestinal tract location K50.90 ; Other chronic pancreatitis K86.1 and Chronic atrial fibrillation I48.2 [facility] [id number] [place] [address] 56759 -4210 Jun, [place] [id number] [place] [address] 79072- 1859 Jun, Bipolar affective disorder, currently depressed, moderate F31.32 ; Vascular dementia without behavioral disturbance F01.50 and Generalized anxiety disorder F41.1 [place] [address] [place] [address] 56306- 1274 May, Generalized anxiety disorder F41.1 [place] [address] [place] [address] 75188- 2084 May, [place] [id number] [place] [address] 05556- 2108 May, [place] [id number] [place] [address] 10135- 2234 May, Coughing R05 [facility] [address] [place] [address] 05051- 2094 May, [place] [id number] [place] [address] 09169- 8863 May, Bipolar affective disorder, currently depressed, moderate F31.32 ; Vascular dementia without behavioral disturbance F01.50 and Generalized anxiety disorder F41.1 [place] [address] 35627- 0852 Apr, Generalized anxiety disorder F41.1 [place] [id number] [place] [address] 78761- 4972 Apr, [place] [address] 90158- 2069 Apr, Vascular dementia without behavioral disturbance F01.50 ; Generalized anxiety disorder F41.1 and Bipolar affective disorder, currently depressed, moderate F31.32 [place] [address] 00614- 7878 Apr, Generalized anxiety disorder F41.1 [facility] [address] 57313 -2900 Apr, Cough R05 and Acute exacerbation of chronic obstructive pulmonary disease (COPD) J44.1 [place] [address] 36125- 4800 Apr, [facility] [place] [address] 53943 -4876 Mar, Cough R05 and Cigarette nicotine dependence without complication F17.210 [place] [address] [place] [address] 84162- 8708 Mar, [place] [address] 91094- 4884 Feb, Generalized anxiety disorder F41.1 ; Major depressive disorder, recurrent episode, moderate F33.1 ; Vascular dementia without behavioral disturbance F01.50 and Unspecified psychosis F29 [place] [id number] [place] [address] 92790- 4725 Feb, [place] [id number] [place] [address] 49786- 1355 Feb, [place] [address] [place] [address] 54828- 7259 Feb, Generalized anxiety disorder F41.1 [place] [address] [place] [address] 50772- 2036 Feb, Generalized anxiety disorder F41.1 [place] [address] [place] [address] 63342- 9966 Feb, Dizziness R42 ; Chronic fatigue R53.82 ; Postconcussion syndrome F07.81 ; Fall, initial encounter W19.XXXA and Disorientation R41.0 [place] [address] [place] [address] 90316- 8061 Feb, Postconcussion syndrome F07.81 ; Injury of head, initial encounter S09.90XA ; Fall, initial encounter W19.XXXA ; Disorientation R41.0 and Acute cystitis with hematuria N30.01 [place] [address] [place] [address] 27975- 2667 Jan, Gastroesophageal reflux disease, esophagitis presence not specified K21.9 ; Post-menopausal Z78.0 and Migraine without aura and without status migrainosus, not intractable G43.009 [place] [address] [place] [address] 61055- 8273 Jan, [place] [address] [place] [address] 80477- 1875 Jan, Generalized anxiety disorder F41.1 ; Major depressive disorder, recurrent episode, moderate F33.1 ; Vascular dementia without behavioral disturbance F01.50 and Unspecified psychosis F29 [place] [address] [place] [address] 54914- 2078 Jan, Pneumonia of left lower lobe due to infectious organism J18.1 [place] [address] [place] [address] 63054- 7336 Jan, Migraine without aura and with status migrainosus, not intractable G43.001 [facility] [address] [place] [address] 11190 -1479 Jan, Migraine without aura and without status migrainosus, not intractable G43.009 [facility] [address] [place] [address] 02203- 3862 Dec, Hematoma T14.8 [facility] [address] [place] [address] 54540- 5457 Dec, [facility] [address] [place] [address] 08004 -2314 Nov, Fatigue, unspecified type R53.83 [place] [address] 63364- 2482 Nov, Scabies B86 and Coronary artery disease involving [place] coronary artery of [place] heart with other form of angina pectoris I25.118 [place] [address] [place] [address] 36511- 3971 Nov, [facility] [id number] [place] [address] 72487- 4379 Nov, [place] [address] [place] [address] 30979- 4846 Oct, [facility] [address] [place] [address] 50718- 8378 Oct, Generalized anxiety disorder F41.1 and Major depressive disorder, recurrent episode, moderate F33.1 [place] [address] [place] [address] 14546- 0823 Oct, Cramp of both lower extremities R25.2 [place] [address] [place] [address] 22800- 1765 18 Oct, 2016 Leg cramps R25.2 [place] [address] [place] [address] 10481- 4252 Oct, Chronic pain syndrome G89.4 [place] [address] 97243- 4845 Oct, [facility] [address] [place] [address] 94480- 8580 14 Oct, 2016 [facility] [address] [place] [address] 02099- 9463 Oct, Routine gynecological examination Z01.419 and Screening for breast cancer Z12.31 [place] [address] [place] [address] 70481- 0926 28 Sep, 2016 Diarrhea R19.7 [facility] [address] [place] [address] 70090- 9157 26 Sep, 2016 Back pain M54.9 [place] [address] [place] [address] 98814- 1948 Sep, [place] [address] [place] [address] 69018- 8848 Sep, [facility] [address] [place] [address] 87388 -2246 August, Xeroderma Q80.9 [place] [address] [place] [address] 42758- 9455 August, Dementia without behavioral disturbance, unspecified dementia type F03.90 [place] [address] [place] [address] 74217- 0712 August, Chronic pain syndrome G89.4 [place] [address] [place] [address] 33121- 5126 August, [facility] [address] [place] [address] 22044- 7705 August, Hyperlipidemia E78.5 ; Other fatigue R53.83 and Other specified hypotension I95.89 [facility] [address] [place] [address] 12969 -0803 August, Dysuria R30.0 ; Other fatigue R53.83 and Other specified hypotension I95.89 [facility] [address] [place] [address] 48937- 0949 August, [facility] [address] [place] [address] 18178- 7078 Jul, Pain in left knee M25.562 and Gastroenteritis K52.9 [facility] [address] 12879- 7228 Jul, [facility] [address] 65164- 5486 Jul, Diarrhea R19.7 [facility] [address] 06237 -7111 Jul, Spider bite, accidental or unintentional, initial encounter T63.301A [place] [address] 03254- 2665 Jul, Primary osteoarthritis of right knee M17.11 and Arthritis M19.90 [place] [address] [place] [address] 58347- 0629 Jul, Generalized anxiety disorder F41.1 and Major depressive disorder, recurrent episode, moderate F33.1 [place] [address] 42205- 1794 Jul, Type 2 diabetes mellitus with diabetic polyneuropathy E11.42 and Temporal headache R51 [place] [address] [place] [address] 43114- 1750 Jul, Back pain M54.9 [facility] [id number] [place] [address] 23970- 9204 Jul, [place] [address] 66921- 7141 Jul, [facility] [id number] [place] [address] 54008- 4682 Jun, Nausea R11.0 [facility] [address] 64940 -8977 Jun, Acute suppurative otitis media of both ears without spontaneous rupture of tympanic membranes, recurrence not specified H66.003 and COPD exacerbation J44.1 [place] [address] 78966- 9788 Jun, Generalized anxiety disorder F41.1 [place] [address] 93401- 8913 16 Jun, 2016 [facility] [address] 21496 -4369 Jun, [facility] [address] 99068 -0848 Jun, Shortness of breath R06.02 and COPD exacerbation J44.1 [place] [address] 15007- 7548 Jun, Eczema, unspecified type L30.9 [place] [address] 91724- 7737 Jun, [place] [address] 26029- 4200 May, [place] [address] 77436- 2513 May, Muscle cramping R25.2 [place] [address] 27344- 9150 May, [place] [address] 60409- 3061 Apr, Diarrhea R19.7 [place] [address] 35787- 6350 Apr, [place] [address] 37344- 9476 Apr, Chronic pain syndrome G89.4 [place] [address] 50425- 6079 Apr, Cramp of both lower extremities R25.2 and Vascular dementia without behavioral disturbance F01.50 [place] [address] 59976- 6436 Apr, Type 2 diabetes mellitus with diabetic polyneuropathy E11.42 and Cigarette nicotine dependence without complication F17.210 [place] [address] 68554- 8098 Mar, Generalized anxiety disorder F41.1 [place] [address] 98740- 6372 Feb, Generalized anxiety disorder F41.1 and Major depressive disorder, recurrent episode, moderate F33.1 [place] [address] 58101- 5579 Feb, [facility] [address] 01782 -4072 Feb, Dysuria R30.0 and Acute cystitis with hematuria N30.01 [place] [address] 93050- 7431 Jan, [place] [address] 51482- 0656 Jan, [place] [address] 30871- 4160 Jan, [place] [address] 60654- 0513 Jan, [facility] [address] 53499 -0617 Jan, Wasp sting, accidental or unintentional, initial encounter T63.461A [place] [address] 55189- 6102 06 Jan, 2016 Encounter for immunization Z23 [place] [address] 35347- 6484 Jan, [facility] [address] [place] [address] 14949- 8370 Jan, [facility] [id number] [place] [address] 46173- 2003 28 Dec, 2015 Generalized anxiety disorder F41.1 and Major depressive disorder, recurrent episode, moderate F33.1 [facility] [id number] [place] [address] 27674- 3660 21 Dec, 2015 Routine gynecological examination Z01.419 ; Postmenopausal Z78.0 ; Screening breast examination Z12.39 ; Osteopenia M85.80 and Breast cancer screening Z12.39 [facility] [id number] [place] [address] 89376- 4158 20 Dec, 2015 [facility] [id number] [place] [address] 30432- 1596 19 Dec, 2015 [facility] [id number] [place] [address] 23049- 6351 16 Dec, 2015 [facility] [id number] [place] [address] 68421- 6905 16 Dec, 2015 [facility] [id number] [place] [address] 32997- 4610 14 Dec, 2015 [facility] [id number] [place] [address] 50406- 6044 06 Dec, 2015 [facility] [id number] [place] [address] 17932- 6518 Nov, [facility] [address] [place] [address] 58574 -3495 Nov, Cough R05 ; Other viral agents as the cause of diseases classified elsewhere B97.89 and Acute upper respiratory infection, unspecified J06.9 [facility] [address] [address] 1521 Nov, [facility] [id number] [place] [address] 21369- 1110 Nov, [facility] [address] [address] 9661 Nov, [facility] [address] [place] [address] 89721- 5130 Nov, [facility] [address], [place] [address]- 5692 Nov, [facility] [id number] [place] [address] 89726- 8674 Oct, [facility] [address] [place] [address] 59671- 9641 Oct, [facility] [id number] [place] [address] 18549- 3974 Oct, [facility] [id number] [place] [address] 88840- 4662 Oct, Chronic pain syndrome G89.4 [facility] [address] [place] [address] 72038- 8408 Sep, Generalized anxiety disorder F41.1 and Major depressive disorder, recurrent episode, moderate F33.1 [facility] [address], [place] [address] 4625 Sep, [facility] [address], [place] [address]- 5565 Sep, [facility] [address] [address]- 2503 Sep, Generalized anxiety disorder F41.1 [facility] [address], [place] [address]- 1869 13 Sep, 2015 Cramp of both lower extremities R25.2 and Cervicalgia M54.2 [facility] [address] [address]- 3846 06 Sep, 2015 Generalized anxiety disorder F41.1 [facility] [address], [place] [address]- 9503 Sep, [facility] [id number] [place] [address] 25441 -8277 August, Rash R21 ; Itching L29.9 and Allergic response, subsequent encounter T78.40XD [facility] [id number] [place] [address] 33396- 1025 August, Primary insomnia F51.01 [facility] [id number] [place] [address] 60264 -0710 August, Rash R21 ; Itching L29.9 and Allergic response, initial encounter T78.40XA [place] [address] 89069- 9232 August, [place] [id number] [place] [address] 47650- 1923 August, Cramp of both lower extremities R25.2 [place] [id number] [place] [address] 10767- 0613 August, Back pain M54.9 [place] [id number] [place] [address] 81863- 1317 August, [facility] [id number] [place] [address] 78466- 9129 August, [facility] [id number] [place] [address] 00572 -4948 August, Cramp of both lower extremities R25.2 [place] [id number] [place] [address] 29222- 5805 August, [place] [address] 57217- 2893 August, Syncope R55 ; Paroxysmal atrial fibrillation I48.0 ; Dementia without behavioral disturbance, unspecified dementia type F03.90 and Chronic pain syndrome G89.4 [place] [id number] [place] [address] 47365- 3168 August, Type 2 diabetes mellitus with diabetic polyneuropathy E11.42 and Syncope R55 [facility] [id number] [place] [address] 09035- 4078 Jul, [facility] [id number] [place] [address] 38555- 3100 Jul, [facility] [id number] [place] [address] 50641- 6691 Jul, [facility] [id number] [place] [address] 23619- 4042 Jul, [facility] [id number] [place] [address] 96649- 6102 Jul, [facility] [id number] [place] [address] 56959- 7218 Jul, UTI (urinary tract infection) N39.0 [facility] [id number] [place] [address] 75984- 9380 Jul, [facility] [id number] [place] [address] 39168- 3923 Jul, Major depressive disorder, recurrent episode, moderate F33.1 and Generalized anxiety disorder F41.1 [facility] [id number] [place] [address] 95605- 8790 Jul, Generalized anxiety disorder F41.1 [facility] [id number] [place] [address] 13415- 3760 Jul, Diarrhea R19.7 [facility] [address] [place] [address] 89214- 2069 Jul, [facility] [id number] [place] [address] 00235- 1864 Jun, [facility] [id number] [place] [address] 02282- 5228 Jun, Eczema L30.9 [facility] [id number] [place] [address] 00496- 7064 Jun, [facility] [address], [place] [address]- 6448 Jun, COPD (chronic obstructive pulmonary disease) J44.9 [facility] [address], [place] [address]- 0216 Jun, [facility] [address], [place] [address]- 8898 Jun, Major depressive disorder, recurrent episode, moderate F33.1 and Generalized anxiety disorder F41.1 [facility] [address], [place] [address]- 5886 May, [facility] [address], [place] [address]- 8089 May, UTI (urinary tract infection) N39.0 [facility] [address], [place] [address]- 0945 May, [facility] [address], [place] [address]- 3851 May, [facility] [address], [place] [address]- 0222 May, [facility] [address], [place] [address]- 3283 May, [facility] [address], [place] [address]- 4922 Apr, Major depressive disorder, recurrent episode, moderate F33.1 and Generalized anxiety disorder F41.1 [facility] [address] [address]- 2316 Apr, COPD (chronic obstructive pulmonary disease) J44.9 [facility] [address], [place] [address]- 6753 Apr, [facility] [address], [place] [address]- 0642 Apr, Atrial flutter I48.92 [facility] [address], [place] [address]- 5780 Apr, [facility] [address], [place] [address]- 3803 Apr, [facility] [address] [place] [address] 83093- 4148 Mar, [facility] [id number] [place] [address] 26337- 9230 Mar, [facility] [id number] [place] [address] 64464- 9688 Mar, [facility] [id number] [place] [address] 12862- 6953 Mar, Hyperlipidemia E78.5 ; Type 2 diabetes mellitus with diabetic polyneuropathy E11.42 ; Major depressive disorder, recurrent episode, moderate F33.1 and Chronic pain syndrome G89.4 [facility] [address], [place] [address]- 5216 Mar, [facility] [id number] [place] [address] 50097- 0244 Mar, [facility] [address], [place] [address]- 1454 Mar, [facility] [address] [place] [address] 21442- 7942 Mar, [facility] [address] [place] [address] 75030- 2147 Feb, COPD (chronic obstructive pulmonary disease) J44.9 and Back pain M54.9 [facility] [address], [place] [address]- 2743 Feb, [facility] [address], [place] [address]- 1161 Feb, [facility] [address] [place] [address]- 4171 Feb, [facility] [address] [place] [address] 69247- 8942 Feb, [facility] [id number] [place] [address] 59839- 2340 Feb, [facility] [id number] [place] [address] 12067- 0432 Feb, [facility] [id number] [place] [address] 55779- 0148 Feb, [facility] [id number] [place] [address] 46506- 5858 Feb, [facility] [id number] [place] [address] 77462- 0557 Feb, Diabetes E11.9 ; Back pain M54.9 and COPD (chronic obstructive pulmonary disease) J44.9 [facility] [id number] [place] [address] 83879- 9667 Jan, [facility] [id number] [place] [address] 33400- 9002 Jan, Major depression, recurrent F33.9 and Generalized anxiety disorder F41.1 [facility] [id number] [place] [address] 35310- 3689 Jan, Chronic pain G89.29 [facility] [id number] [place] [address] 96183- 4926 Jan, [facility] [address] [place] [address] 84183- 2226 Jan, [facility] [id number] [place] [address] 47521- 8758 Jan, [facility] [address] [place] [address] 40494- 3404 Jan, [facility] [id number] [place] [address] 51720- 1858 Jan, Nicotine dependence F17.200 [facility] [address] [place] [address] 12534- 3293 Jan, Nicotine dependence F17.200 and Back pain M54.9 [facility] [address], [place] [address]- 6356 Jan, [facility] [id number] [place] [address] 47990- 1035 28 Dec, 2014 [facility] [id number] [place] [address] 57120- 4465 25 Dec, 2014 Anxiety, generalized 300.02 and Major depression, recurrent 296.30 [facility] [id number] [place] [address] 32162- 6267 24 Dec, 2014 [facility] [id number] [place] [address] 31435- 5020 21 Dec, 2014 [facility] [id number] [place] [address] 64040- 3766 17 Dec, 2014 [facility] [id number] [place] [address] 15025- 0555 15 Dec, 2014 [facility] [address] [place] [address] 76996- 5386 14 Dec, 2014 [facility] [address] [place] [address] 29927- 6465 11 Dec, 2014 [facility] [address] [place] [address] 54259- 2542 10 Dec, 2014 [facility] [address] [place] [address] 48297- 1892 08 Dec, 2014 Skin tear 879.8 [facility] [address] [place] [address] 41373- 2518 08 Dec, 2014 Routine gynecological examination V72.31 ; Breast cancer screening V76.10 and Family history of breast cancer in first degree relative V16.3 [facility] [address], [place] [address]- 9735 Dec, [facility] [address] [place] [address] 63409- 1453 Dec, [facility] [address], [place] [address]- 7328 Nov, [facility] [id number] [place] [address] 24817- 0851 Nov, [facility] [id number] [place] [address] 37807- 8280 Nov, Poor balance 781.99 and Vascular dementia, uncomplicated 290.40 [facility] [id number] [place] [address] 46941- 2366 Nov, [facility] [id number] [place] [address] 63984- 9035 Nov, Major depression, recurrent 296.30 and Anxiety, generalized 300.02 [facility] [address] [place] [address] 99041- 4972 Nov, [facility] [address] [place] [address] 92891- 3389 Nov, [facility] [address] [place] [address] 32123- 5122 Nov, [facility] [address] [place] [address] 53030- 0287 Nov, [facility] [address] [place] [address] 57867- 3102 Nov, Vascular dementia, uncomplicated 290.40 and Lumbago 724.2 [facility] [address], [place] [address]- 2641 Nov, [facility] [address] [address]- 6828 Nov, [facility] [address] 7844 Nov, [facility] [address], [place] [address]- 9122 Oct, [facility] [address], [place] [address]- 7885 Oct, [facility] [id number] [place] [address] 53860- 7251 Oct, [facility] [id number] [address]- 1258 Oct, COPD (chronic obstructive pulmonary disease) 496 and Hyperlipidemia 272.4 [facility] [id number] [address]- 0802 Oct, Major depression, recurrent 296.30 and Anxiety, generalized 300.02 [facility] [address] [address]- 7556 Oct, [facility] [address], [place] [address]- 0420 Oct, [facility] [address], [place] [address]- 3050 Oct, [facility] [address], [place] [address]- 6691 Sep, Lumbago 724.2 and Anxiety state, unspecified 300.00 [facility] [address], [place] [address]- 4881 Sep, [facility] [id number] [address]- 9467 Sep, [facility] [address], [place] [address]- 4855 August, [facility] [id number] [address]- 2140 August, Major depression, recurrent 296.30 ; Anxiety, generalized 300.02 and No condition on Ashdown II V71.09 [facility] [place] [facility] [address] [id number] [place] [address]- 1906 August, [facility] [place] [facility] [address] [id number] [place] [address]- 2144 August, [facility] [place] [facility] [address] [id number] [place] [address]- 9858 Jul, [facility] [place] [facility] [address] [id number] [place] [address]- 3201 Jul, [facility] [place] [facility] [address] [id number] [place] [address]- 5054 Jul, [facility] [place] [facility] [address] [id number] [place] [address]- 5928 Jun, [facility] [place] [facility] [address] [facility] [id number] [place] [address]- 7487 Jun, [facility] [place] [facility] [address] [id number] [place] [address]- 1304 Jun, [facility] [place] [facility] [address] [id number] [place] [address]- 2537 Jun, [facility] [place] [facility] [address] [facility] [id number] [place] [address]- 4818 Jun, [facility] [place] [facility] [address] [id number], [place] [address]- 3864 Jun, [facility] [place] [facility] [address] [id number], [place] [address]- 9391 23 Jun, 2014 [facility] [place] [facility] [address] [id number] [place] [address]- 7207 17 Jun, 2014 [facility] [place] [facility] [address] [id number] [place] [address]- 5850 Jun, [facility] [place] [facility] [address] [facility] [id number] [place] [address]- 2739 Jun, [facility] [place] [facility] [address] [id number] [place] [address]- 7570 10 Jun, 2014 [facility] [place] [facility] [address] [id number] [place] [address]- 6071 10 Jun, 2014 [facility] [place] [facility] [address] [id number] [place] [address]- 7213 07 Jun, 2014 [facility] [place] [facility] [address] [facility] [id number] [place] [address]- 0908 07 Jun, 2014 [facility] [place] [facility] [address] [id number] [place] [address]- 5821 02 Jun, 2014 [facility] [place] [facility] [address] [id number] [place] [address]- 6795 02 Jun, 2014 [facility] [place] [facility] [address] [facility] [id number] [place] [address]- 9216 23 May, 2014 [facility] [place] [facility] [address] [facility] [id number] [place] [address]- 9655 23 May, 2014 [facility] [place] [facility] [address] [facility] [id number] [place] [address]- 4416 20 May, 2014 [facility] [place] [facility] [address] [facility] [id number] [place] [address]- 6606 20 May, 2014 [facility] [place] [facility] [address] [facility] [id number] [place] [address]- 5591 20 May, 2014 [facility] [place] [facility] [address] [facility] [id number] [place] [address]- 2542 20 May, 2014 [facility] [place] [facility] [address] [facility] [id number] [place] [address]- 2541 19 May, 2014 [facility] [place] [facility] [address] [facility] [id number] [place] [address]- 8635 12 May, 2014 [facility] [place] [facility] [address] [facility] [id number] [place] [address]- 2546 11 May, 2014 [facility] [place] [facility] [address] [facility] [id number] [place] [address]- 2227 May, [facility] [place] [facility] [address] [id number] [place] [address]- 7325 May, [facility] [place] [facility] [address] [id number] [place] [address]- 7216 May, [facility] [place] [facility] [address] [id number] [place] [address]- 4613 May, [facility] [place] [facility] [address] [id number] [place] [address]- 7444 May, [facility] [place] [facility] [address] [id number] [place] [address]- 5692 Apr, [facility] [place] [facility] [address] [id number] [place] [address]- 3506 Apr, [facility] [place] [facility] [address] [id number] [place] [address]- 5379 Apr, [facility] [place] [facility] [address] [id number] [place] [address]- 1269 Apr, [facility] [place] [facility] [address] [id number] [place] [address]- 2219 Apr, [facility] [place] [facility] [address] [id number] [place] [address]- 1143 Apr, [facility] [place] [facility] [address] [id number], [place] [address] Apr, [facility] [place] [facility] [address] [id number], [place] [address] Apr, [facility] [place] [facility] [address] [id number], [place] [address] Apr, [facility] [place] [facility] [address] [id number], [place] [address] Apr, [facility] [place] [facility] [address] [id number] [place] [address] Apr, [facility] [place] [facility] [address] [id number] [place] [address] Apr, [facility] [address] [id number] [place] [address] 31 Mar, 2014 [facility] [place] [facility] [address] [id number] [place] [address] 31 Mar, 2014 [facility] [address] [id number] [id number] [address] 30 Mar, 2014 [facility] [place] [facility] [address] [id number] [place] [address] 30 Mar, 2014 [facility] [address] [id number] [place] [address] Mar, [facility] [place] [facility] [address] [id number] [place] [address] 29 Mar, 2014 [facility] [place] [facility] [address] [id number] [place] [address] Mar, [facility] [address] [id number] [place] [address] 19 Mar, 2014 [facility] [place] [facility] [address] [id number] [place] [address] 15 Mar, 2014 [facility] [address] [id number] [place] [address]763 15 Mar, 2014 [facility] [place] [facility] [address] [id number] [place] [address] 15 Mar, 2014 [facility] [place] [facility] [address] [id number] [place] [address] 1558 15 Mar, 2014 [facility] [place] [facility] [address] [id number] [place] [address] 15 Mar, 2014 [facility] [place] [facility] [address] [id number] [place] [address] 15 Mar, 2014 [facility] [place] [facility] [address] [id number] [place] [address] Mar, [facility] [place] [facility] [address] [id number] [place] [address] Mar, [facility] [place] [facility] [address] [id number] [place] [address]- [address] Mar, [facility] [place] [facility] [address] [id number] [place] [address] Mar, [facility] [place] [facility] [address] [id number] [place] [address] Mar, [facility] [place] [facility] [address] [id number] [place] [address] Mar, [facility] [place] [facility] [address] [id number] [place] [address] Feb, [facility] [place] [facility] [address] [id number] [place] [address] Feb, [facility] [place] [facility] [address] [id number] [place] [address] Feb, [facility] [place] [facility] [address] [id number] [place] [address] Feb, [facility] [place] [facility] [address] [id number] [place] [address] Feb, [facility] [place] [facility] [address] [id number] [place] [address] Feb, [facility] [place] [facility] [address] [id number] [place] [address] Feb, [facility] [place] [facility] [address] [id number] [place] [address]- [address]85 Feb, [facility] [place] [facility] [address] [id number] [place] [address]- [address] Feb, [facility] [place] [facility] [address] [id number] [place] [address] Feb, [facility] [place] [facility] [address] [id number], [place] [address] Feb, [facility] [place] [facility] [address] [id number] [place] [address] 48[address] Feb, [facility] [place] [facility] [address] [id number] [place] [address]- [address] Feb, [facility] [place] [facility] [address] [id number] [place] [address] Feb, [facility] [place] [facility] [address] [id number] [place] [address] Feb, [facility] [place] [facility] [address] [id number] [place] [address] Feb, [facility] [place] [facility] [address] [id number] [place] [address] 9835 Feb, [facility] [place] [facility] [address] [id number] [place] [address] 260[address] Jan, [facility] [place] [facility] [address] [id number], [place] [address] 8667 Jan, [facility] [place] [facility] [address] [id number] [place] [address] Jan, [facility] [place] [facility] [address] [id number], [place] [address] Jan, [facility] [place] [facility] [address] [id number], [place] [address] Jan, [facility] [place] [facility] [address] [id number], [place] [address] Jan, [facility] [place] [facility] [address] [id number], [place] [address] Jan, [facility] [place] [facility] [address] [id number], [place] [address] 3768 Jan, [facility] [place] [facility] [address] [id number], [place] [address] 5279 Jan, [facility] [place] [facility] [address] [id number] [place] [address]- 3725 Jan, [facility] [place] [facility] [address] [id number] [place] [address]- 0471 Jan, [facility] [place] [facility] [address] [id number] [place] [address]- 9506 Dec, [facility] [place] [facility] [address] [id number] [place] [address]- 5106 Dec, [facility] [place] [facility] [address] [id number] [place] [address]- 5033 Nov, [facility] [place] [facility] [address] [id number] [place] [address]- 1847 Nov, [facility] [place] [facility] [address] [id number] [place] [address]- 6559 Nov, [facility] [place] [facility] [address] [id number] [place] [address]- 1713 Nov, [facility] [place] [facility] [address] [id number] [place] [address]- 5469 Nov, [facility] [place] [facility] [address] [id number] [place] [address]- 5588 Nov, [facility] [place] [facility] [address] [id number] [place] [address]- 3400 Nov, [facility] [place] [facility] [address] [id number] [place] [address]- 6927 Oct, [facility] [place] [facility] [address] [id number] [place] [address]- 4690 Oct, [facility] [place] [facility] [address] [id number] [place] [address]- 4441 Oct, [facility] [place] [facility] [address] [id number] [place] [address]- 6393 Oct, [facility] [place] [facility] [address] [id number] [place] [address]- 2003 Sep, [facility] [place] [facility] [address] [id number] [place] [address]- 8446 Sep, [facility] [place] [facility] [address] [id number] [place] [address]- 2954 Sep, [facility] [place] [facility] [address] [id number] [place] [address]- 6361 Sep, [facility] [place] [facility] [address] [id number] [place] [address]- 4752 Sep, [facility] [place] [facility] [address] [id number] [place] [address]- 0168 Sep, [facility] [place] [facility] [address] [id number] [place] [address]- 9066 Sep, [facility] [place] [facility] [address] [id number] [place] [address]- 7181 Sep, [facility] [place] [facility] [address] [id number], [place] [address]- 2830 Sep, [facility] [place] [facility] [address] [id number] [place] [address]- 3188 Sep, [facility] [place] [facility] [address] [id number] [place] [address]- 8932 Sep, [facility] [place] [facility] [address] [id number], [place] [address]- 6588 Sep, [facility] [place] [facility] [address] [id number], [place] [address]- 8683 Sep, [facility] [place] [facility] [address] [id number] [place] [address]- 5574 Sep, [facility] [place] [facility] [address] [id number], [place] [address]- 7231 August, [facility] [place] [facility] [address] [id number] [place] [address]- 5192 August, [facility] [place] [facility] [address] [id number] [place] [address]- 3397 August, [facility] [address] [id number] [place] [address] August, [facility] [address] [id number] [place] [address]- 4300 August, [facility] [address] [id number] [place] [address]- 1048 August, [facility] [address] [id number] [place] [address]- 3266 August, [facility] [address] [id number] [place] [address]- 1395 August, [facility] [address] [id number] [place] [address]- 0216 August, [facility] [address] [id number] [place] [address]- 4383 August, [facility] [address] [id number] [place] [address]- 6861 August, [facility] [address] [id number] [place] [address]- 8804 August, [facility] [address] [id number] [place] [address]- 0636 August, [facility] [address] [id number] [place] [address]- 9481 August, [facility] [address] [id number] [place] [address]- 0435 August, [facility] [place] [facility] [address] [id number] [place] [address]- 0316 August, [facility] [place] [facility] [address] [id number] [place] [address]- 9384 August, [facility] [address] [id number] [place] [address]- 3949 August, [facility] [place] [facility] [address] [id number] [place] [address]- 5123 August, [facility] [place] [facility] [address] [id number] [place] [address]- 6298 Jul, [facility] [place] [facility] [address] [id number] [place] [address]- 1887 Jul, [facility] [place] [facility] [address] [id number] [place] [address]- 4511 Jul, [facility] [place] [facility] [address] [id number] [place] [address]- 8474 Jul, [facility] [place] [facility] [address] [id number] [place] [address]- 9678 Jun, [facility] [place] [facility] [address] [id number] [place] [address]- 3084 Jun, [facility] [place] [facility] [address] [id number] [place] [address]- 2211 Jun, [facility] [place] [facility] [address] [id number] [place] [address]- 2907 Jun, [facility] [place] [facility] [address] [id number] [place] [address]- 8756 Jun, [facility] [place] [facility] [address] [id number] [place] [address]- 9309 Jun, [facility] [place] [facility] [address] [id number] [place] [address]- 2195 Jun, [facility] [place] [facility] [address] [id number] [place] [address]- 0960 Jun, [facility] [place] [facility] [address] [id number] [place] [address]- 2096 Jun, [facility] [place] [facility] [address] [id number] [place] [address]- 9186 Jun, [facility] [place] [facility] [address] [id number] [place] [address]- 5018 May, [facility] [place] [facility] [address] [id number] [place] [address]- 5856 May, [facility] [place] [facility] [address] [id number] [place] [address]- 3996 May, [facility] [place] [facility] [address] [facility] [id number] [place] [address]- 1626 May, [facility] [place] [facility] [address] [id number] [place] [address]- 7291 May, [facility] [place] [facility] [address] [id number] [place] [address]- 9798 May, [facility] [place] [facility] [address] [facility] [id number] [place] [address]- 9300 20 May, 2013 [facility] [place] [facility] [address] [facility] [id number] [place] [address]- 0530 May, [facility] [place] [facility] [address] [facility] [id number] [place] [address]- 5386 May, [facility] [place] [facility] [address] [facility] [id number] [place] [address]- 7181 18 May, 2013 [facility] [place] [facility] [address] [facility] [id number] [place] [address]- 1336 18 May, 2013 [facility] [place] [facility] [address] [facility] [id number] [place] [address]- 2237 17 May, 2013 [facility] [place] [facility] [address] [facility] [id number] [place] [address]- 254 11 May, 2013 [facility] [place] [facility] [address] [id number] [place] [address]- 8646 11 May, 2013 [facility] [place] [facility] [address] [facility] [id number] [place] [address]- 2546 10 May, 2013 [facility] [place] [facility] [address] [facility] [id number] [place] [address]- 2548 07 May, 2013 [facility] [place] [facility] [address] [id number] [place] [address]- 1864 May, [facility] [place] [facility] [address] [id number] [place] [address]- 3636 Apr, [facility] [place] [facility] [address] [facility] [id number] [place] [address]- 2739 Apr, [facility] [place] [facility] [address] [id number] [place] [address]- 2034 Apr, [facility] [place] [facility] [address] [id number] [place] [address]- 7355 Apr, [facility] [place] [facility] [address] [facility] [id number] [place] [address]- 9369 Apr, [facility] [place] [facility] [address] [facility] [id number] [place] [address]- 6867 Apr, [facility] [place] [facility] [address] [id number] [place] [address]- 3412 Apr, [facility] [place] [facility] [address] [id number] [place] [address]- 4308 Mar, [facility] [place] [facility] [address] [id number] [place] [address]- 5919 Mar, [facility] [place] [facility] [address] [id number] [place] [address]- 6483 Mar, [facility] [place] [facility] [address] [id number], [place] [address]- 9734 Mar, [facility] [place] [facility] [address] [id number] [place] [address]- 9804 Mar, [facility] [place] [facility] [address] [facility] [id number], [place] [address]- 7676 Mar, [facility] [place] [facility] [address] [facility] [id number], [place] [address]- 2546 Mar, [facility] [place] [facility] [address] [id number] [place] [address]- 2861 04 Mar, 2013 [facility] [address] [id number] [place] [address]- 8334 Mar, [facility] [address] [id number] [place] [address]- 3616 Mar, [facility] [address] [id number] [place] [address]- 4109 Mar, [facility] [address] [id number] [place] [address]- 7242 Feb, [facility] [address] [id number] [place] [address]- 4887 Feb, [facility] [address] [id number] [place] [address]- 6293 Feb, [facility] [address] [id number] [place] [address]- 4991 20 Feb, 2013 [facility] [address] [id number] [place] [address]- 0389 Feb, [facility] [address] [id number] [place] [address]- 7075 19 Feb, 2013 [facility] [address] [id number] [place] [address]- 4331 15 Feb, 2013 [facility] [address] [id number] [place] [address]- 9965 14 Feb, 2013 [facility] [address] [id number] [place] [address]- 2706 14 Feb, 2013 [facility] [address] [id number] [place] [address]- 5617 13 Feb, 2013 [facility] [address] [id number] [place] [address]- 7801 13 Feb, 2013 [facility] [address] [id number] [place] [address]- 0497 Feb, [facility] [place] [facility] [address] [id number] [place] [address]- 1799 Feb, [facility] [place] [facility] [address] [id number] [place] [address]- 7639 Feb, [facility] [place] [facility] [address] [id number] [place] [address]- 2517 Feb, [facility] [place] [facility] [address] [id number] [place] [address]- 8108 Feb, [facility] [place] [facility] [address] [id number] [place] [address]- 0493 Jan, [facility] [place] [facility] [address] [id number] [place] [address]- 1674 Jan, [facility] [place] [facility] [address] [id number] [place] [address]- 6791 Jan, [facility] [place] [facility] [address] [id number] [place] [address]- 4936 Jan, [facility] [place] [facility] [address] [id number] [place] [address]- 1375 Jan, [facility] [place] [facility] [address] [id number] [place] [address]- 3180 Jan, [facility] [place] [facility] [address] [id number] [place] [address]- 7192 Jan, [facility] [place] [facility] [address] [id number], [place] [address]- 7568 Jan, [facility] [place] [facility] [address] [id number] [place] [address]- 9320 Jan, [facility] [place] [facility] [address] [id number], [place] [address]- 7096 27 Dec, 2012 [facility] [place] [facility] [address] [id number][place] 6825 20 Dec, 2012 [facility] [place] [facility] [address] [id number], [place] [address]- 0507 Dec, [facility] [place] [facility] [address] [id number] [place] [address]- 6657 10 Dec, 2012 [facility] [place] [facility] [address] [id number] [place] [address]- 8814 04 Dec, 2012 [facility] [place] [facility] [address] [id number] [place] [address]- 5848 Dec, [facility] [place] [facility] [address] [id number] [place] [address]- 4351 Nov, [facility] [place] [facility] [address] [id number] [place] [address]- 5889 Nov, [facility] [place] [facility] [address] [id number] [place] [address]- 1620 Nov, [facility] [place] [facility] [address] [id number] [place] [address]- 4255 Nov, [facility] [place] [facility] [address] [id number] [place] [address]- 6975 Nov, [facility] [place] [facility] [address] [id number] [place] [address]- 3883 Nov, [facility] [place] [facility] [address] [id number] [place] [address]- 3838 Nov, [facility] [place] [facility] [address] [id number] [place] [address]- 1403 Nov, [facility] [place] [facility] [address] [id number] [place] [address]- 0920 Nov, [facility] [place] [facility] [address] [id number] [place] [address]- 3218 Nov, [facility] [place] [facility] [address] [id number] [place] [address]- 3517 Oct, [facility] [place] [facility] [address] [id number] [place] [address]- 8571 Oct, [facility] [place] [facility] [address] [id number] [place] [address]- 9075 Oct, 2012 [facility] [place] [facility] [address] [id number] [place] [address]- 2356 Oct, [facility] [place] [facility] [address] [id number] [place] [address]- 7569 Oct, [facility] [place] [facility] [address] [id number] [place] [address]- 6124 Oct, [facility] [place] [facility] [address] [id number] [place] [address]- 5166 Oct, [facility] [place] [facility] [address] [id number] [place] [address]- 0556 Oct, [facility] [place] [facility] [address] [id number] [place] [address]- 0831 Sep, [facility] [place] [facility] [address] [id number] [place] [address]- 6833 Sep, [facility] [place] [facility] [address] [id number] [place] [address]- 1551 Sep, [facility] [place] [facility] [address] [id number] [place] [address]- 9562 Sep, [facility] [place] [facility] [address] [id number] [place] [address]- 6552 Sep, [facility] [place] [facility] [address] [id number] [place] [address]- 5642 Sep, [facility] [place] [facility] [address] [id number] [place] [address]- 9439 Sep, [facility] [place] [facility] [address] [id number] [place] [address]- 7936 Sep, [facility] [place] [facility] [address] [id number] [place] [address]- 5193 August, [facility] [place] [facility] [address] [id number] [place] [address]- 8205 August, [facility] [address] [id number] [place] [address]- 0145 August, [facility] [address] [id number] [place] [address]- 1148 August, [facility] [address] [id number] [place] [address]- 1087 August, [facility] [address] [id number] [place] [address]- 2467 Jul, [facility] [address] [id number] [place] [address]- 0103 Jul, [facility] [address] [id number] [place] [address]- 0005 Jul, [facility] [address] [id number] [place] [address]- 5224 Jul, [facility] [address] [id number] [place] [address]- 7579 Jul, [facility] [address] [id number] [place] [address]- 5705 Jun, [facility] [address] [id number] [place] [address]- 9646 18 Jun, 2012 [facility] [address] [id number] [place] [address]- 0352 15 Jun, 2012 [facility] [place] [facility] [address] [id number], [place] [address]- 1411 14 Jun, 2012 [facility] [place] [facility] [address] [id number] [place] [address]- 7627 12 Jun, 2012 [facility] [place] [facility] [address] [id number] [place] [address]- 2688 08 Jun, 2012 [facility] [place] [facility] [address] [id number] [place] [address]- 6109 08 Jun, 2012 [facility] [place] [facility] [address] [id number] [place] [address]- 5545 Jun, [facility] [address] [id number] [place] [address]- 7615 Jun, [facility] [address] [id number] [place] [address]- 7055 May, [facility] [address] [id number] [place] [address]- 4617 May, [facility] [address] [id number] [place] [address]- 1032 May, [facility] [address] [id number] [place] [address]- 1750 May, [facility] [address] [id number] [place] [address]- 1790 Apr, [facility] [address] [id number] [place] [address]- 3513 Apr, [facility] [address] [id number] [place] [address]- 1603 Apr, [facility] [address] [id number] [place] [address]- 7806 Apr, [facility] [address] [id number] [place] [address]- 3963 Apr, [facility] [address] [id number] [place] [address]- 8749 Apr, [facility] [address] [id number] [place] [address]- 1752 Apr, [facility] [address] [id number] [place] [address]- 1956 Mar, [facility] [address] [place] [id number] Mar, [facility] [address] [id number] [place] [address] Mar, [facility] [place] [facility] [address] [id number] [place] Mar, [facility] [place] [facility] [address] [id number] [place] [address] Mar, [facility] [place] [facility] [address] [id number] [place] [address] Mar, [facility] [place] [facility] [address] [id number] [place] [address] Mar, [facility] [place] [facility] [address] [id number] [place] [address] Mar, [facility] [place] [facility] [address] [id number] [place] [address] Mar, [facility] [place] [facility] [address] [id number] [place] [address] Mar, [facility] [place] [facility] [address] [id number] [place] [address] Mar, [facility] [place] [facility] [address] [id number] [place] [address] Mar, [facility] [place] [facility] [address] [id number] [place] [address] Mar, [facility] [place] [facility] [address] [id number] [place] [address] Mar, [facility] [place] [facility] [address] [id number] [place] [address] Mar, [facility] [place] [facility] [address] [id number] [place] [address] Mar, [facility] [place] [facility] [address] [id number] [place] [address] Mar, [facility] [place] [facility] [address] [id number] [place] [address] Feb, [facility] [place] [facility] [address] [id number] [place] [address] Feb, [facility] [place] [facility] [address] [id number] [place] [address] Feb, [facility] [place] [facility] [address] [id number] [place] [address] Feb, [facility] [place] [facility] [address] [id number] [place] [address] Feb, [facility] [place] [facility] [address] [id number] [place] [address] Feb, [facility] [place] [facility] [address] [id number] [place] [address] Feb, [facility] [place] [facility] [address] [id number] [place] [address] Feb, [facility] [place] [facility] [address] [id number] [place] [address] Feb, [facility] [place] [facility] [address] [id number], [place] [address] Feb, [facility] [place] [facility] [address] [id number] [place] [address] Feb, [facility] [place] [facility] [address] [id number], [place] [address] Feb, [facility] [place] [facility] [address] [id number], [place] [address] Feb, [facility] [place] [facility] [address] [id number], [place] [address] Feb, [facility] [place] [facility] [address] [id number] [place] [address] Feb, [facility] [place] [facility] [address] [id number], [place] [address] Feb, [facility] [place] [facility] [address] [id number] [place] [address] Jan, [facility] [place] [facility] [address] [id number] [place] [address] Jan, 2011 [facility] [place] [facility] [address] [id number] [place] [address] Jan, 2011 [facility] [place] [facility] [address] [id number] [place] [address] Jan, [facility] [place] [facility] [address] [id number] [place] [address] Jan, 2011 [facility] [place] [facility] [address] [id number] [place] [address] Jan, [facility] [place] [facility] [address] [id number] [place] [address] Jan, [facility] [place] [facility] [address] [id number] [place] [address] Jan, [facility] [place] [facility] [address] [id number] [place] [address] Jan, [facility] [place] [facility] [address] [id number] [place] [address] Jan, [facility] [place] [facility] [address] [id number] [place] [address] Jan, [facility] [place] [facility] [address] [id number] [place] [address] Jan, [facility] [place] [facility] [address] [id number] [place] [address] Jan, [facility] [place] [facility] [address] [id number], [place] [address] Jan, [facility] [place] [facility] [address] [id number] [place] [address] 08 Jan, 2012 [facility] [place] [facility] [address] [id number] [place] [address] Jan, [facility] [place] [facility] [address] [id number], [place] [address] Jan, [facility] [place] [facility] [address] [id number] [place] [address] 21 Dec, 2011 [facility] [place] [facility] [address] [id number] [place] [address] 20 Dec, 2011 [facility] [place] [facility] [address] [id number] [place] [address] 18 Dec, 2011 [facility] [place] [facility] [address] [id number] [place] [address] 18 Dec, 2011 [facility] [place] [facility] [address] [id number] [place] [address] 10 Dec, 2011 [facility] [place] [facility] [address] [id number] [place] [address] 10 Dec, 2011 [facility] [place] [facility] [address] [id number] [place] [address]- [address] 10 Dec, 2011 [facility] [place] [facility] [address] [id number] [place] [address] 07 Dec, 2011 [facility] [place] [facility] [address] [id number] [place] [address] 30 Nov, 2011 [facility] [place] [facility] [address] [id number] [place] [address] Nov, [facility] [place] [facility] [address] [id number] [place] [address] 24 Nov, 2011 [facility] [place] [facility] [address] [id number] [place] [address] Nov, [facility] [place] [facility] [address] [id number] [place] [address] Nov, [facility] [place] [facility] [address] [id number] [place] [address] 16 Nov, 2011 [facility] [place] [facility] [address] [id number] [place] [address] 30 Oct, 2011 [facility] [place] [facility] [address] [id number] [place] [address] 30 Oct, 2011 [facility] [place] [facility] [address] [id number] [place] [address] Oct, [facility] [place] [facility] [address] [id number] [place] [address] Oct, [facility] [place] [facility] [address] [id number] [place] [address] Oct, [facility] [place] [facility] [address] [id number] [place] [address] Oct, [facility] [place] [facility] [address] [id number] [place] [address] Oct, [facility] [place] [facility] [address] [id number] [place] [address] Sep, [facility] [place] [facility] [address] [id number] [place] [address] Sep, [facility] [place] [facility] [address] [id number] [place] [address] Sep, [facility] [place] [facility] [address] [id number] [place] [address] Sep, [facility] [place] [facility] [address] [id number] [place] [address] Sep, [facility] [place] [facility] [address] [id number] [place] [address] 15 Sep, 2011 [facility] [place] [facility] [address] [id number] [place] [address] 14 Sep, 2011 [facility] [place] [facility] [address] [id number] [place] [address] 11 Sep, 2011 [facility] [place] [facility] [address] [id number] [place] [address] 05 Sep, 2011 [facility] [place] [facility] [address] [id number] [place] [address] 04 Sep, 2011 [facility] [place] [facility] [address] [id number] [place] [address] August, [facility] [address] [id number] [place] [address] August, [facility] [address] [id number] [place] [address] August, [facility] [address] [id number] [place] [address]170 August, [facility] [address] [id number] [place] [address] August, [facility] [address] [id number] [place] [address] Jul, [facility] [address] [id number] [place] [address] Jul, [facility] [address] [id number] [place] [address] Jul, [facility] [address] [id number] [place] [address] Jul, [facility] [address] [id number] [place] [address] Jul, [facility] [address] [id number] [place] [address] Jul, [facility] [address] [id number] [place] [address] Jul, [facility] [address] [id number] [place] [address] Jun, [facility] [address] [id number] [place] [address] Jun, [facility] [address] [id number] [place] [address] Jun, [facility] [address] [id number] [place] [address] Jun, [facility] [place] [facility] [address] [id number] [place] [address] Jun, [facility] [place] [facility] [address] [id number] [place] [address] May, [facility] [place] [facility] [address] [id number] [place] [address] May, [facility] [place] [facility] [address] [id number] [place] [address] May, [facility] [place] [facility] [address] [id number] [place] [address] May, [facility] [place] [facility] [address] [id number] [place] [address] 74[address] May, [facility] [place] [facility] [address] [facility] [id number] [place] [address] May, [facility] [place] [facility] [address] [id number], [place] [address] Apr, [facility] [place] [facility] [address] [id number] [place] [address] Mar, [facility] [place] [facility] [address] [facility] [id number] [place] [address] Feb, [facility] [place] [facility] [address] [facility] [id number], [place] [address] Feb, [facility] [place] [facility] [address] [id number], [place] [address] Feb, [facility] [place] [facility] [address] [id number] [place] [address] 1435 Feb, [facility] [place] [facility] [address] [facility] [id number] [place] [address] Jan, [facility] [place] [facility] [address] [facility] [id number] [place] [address] Jan, [facility] [place] [facility] [address] [id number] [place] [address]46 26 Jan, 2011 [facility] [address] [id number] [place] [address]- [address]266 24 Jan, 2011 [facility] [place] [facility] [address] [id number] [place] [address] 2546 14 Jan, 2011 [facility] [address] [id number] [place] [address] 19 Dec, 2010 [facility] [place] [facility] [address] [id number] [place] [address] 2546 20 Oct, 2010 [facility] [address] [id number] [place] [address] August, [facility] [address] [id number] [place] [address]- [address] 29 Mar, 2010 [facility] [address] [id number] [place] [address] 27 Mar, 2010 [facility] [address] [id number] [place] [address] 16 Mar, 2010 [facility] [place] [facility] [address] [id number] [place] [address] 2544 15 Mar, 2010 [facility] [address] [id number] [place] [address]- 2541 15 Mar, 2010 [facility] [place] [facility] [address] [id number] [place] [address] 2546 08 Mar, 2010 [facility] [place] [facility] [address] [id number] [place] [address] 2545 03 Mar, 2010 [facility] [place] [facility] [address] [id number] [place] [address] 2549 24 Feb, 2010 [facility] [place] [facility] [address] [id number] [place] [address]- [address]40 24 Feb, 2010 [facility] [place] [facility] [address] [id number] [place] [address] 2543 15 Feb, 2010 [facility] [place] [facility] [address] [id number] [place] [address]- 2482 19 Jan, 2010 [facility] [place] [facility] [address] [id number] [place] [address]- 1446 Jan, [facility] [place] [facility] [address] [id number] [place] [address] 18 Jan, 2010 [facility] [place] [facility] [address] [id number] [place] [address] 3918 Nov, [facility] [place] [facility] [address] [id number] [place] [address]- 7381 14 Sep, 2009 [facility] [place] [facility] [address] [id number] [place] [address]- 7184 August, [facility] [address] [facility] [id number] [place] [address]- 0289 Mar, [facility] [place] [facility] [address] [id number], [place] [address] Mar, [facility] [place] [facility] [address] [id number] [place] [address]- 9497 17 Feb, 2009 [facility] [place] [facility] [address] [id number], [place] [address] Feb, [facility] [place] [facility] [address] [facility] [id number], [place] [address]- [address] 10 Feb, 2009 [facility] [place] [facility] [address] [id number], [place] [address] 67[address] 10 Feb, 2009 [facility] [place] [facility] [address] [id number], [place] [address]- [address] 06 Feb, 2009 [facility] [place] [facility] [address] [id number], [place] [address]- [address] 27 Jan, 2009 [facility] [place] [facility] [address] [id number], [place] [address]- 29[address] Jan, [facility] [place] [facility] [address] [id number], [place] [address] Jan, [facility] [address] [facility] [id number], [place] [address] Jan, [facility] [address] [id number], [place] [address] Nov, [facility] [address] [id number], [place] [address] Sep, [facility] [address] [id number], [place] [address] August, [facility] [address] [facility] [id number], [place] [address]- [address] Jul, [facility] [address] [facility] [id number], [place] [address] May, IMMUNIZATIONS No Known Immunizations SOCIAL HISTORY Never Assessed REASON FOR VISIT Neuropathy----DBennettRN, right foot pain, constant burning PLAN OF CARE VITAL SIGNS Height 64 in 2017-07-02 Weight 157 lbs 2017-07-02 Temperature 98.4 degrees Fahrenheit 2017-07-02 Heart Rate 70 bpm 2017-07-02 Respiratory Rate 20 2017-07-02 BMI 26.95 kg/m2 2017-07-02 Blood pressure systolic 104 mmHg 2017-07-02 Blood pressure diastolic 70 mmHg 2017-07-02 MEDICATIONS Medication Instructions Dosage Frequency Start Date End Date Duration Status Hydrocodone-Acetaminophen 5-325 MG Orally every 6 hrs 1 tablet as needed 6h Jun, Active Trospium Chloride 20 mg Orally Once a day 1 tablet at bedtime on an empty stomach 24h Active Oxygen 5 inhalation all the time Active Xifaxan 550 MG Orally Three times a day 1 tablet 8h Active Ropinirole HCl 2 MG TAKE 1 TABLET ONE TIME DAILY AT BEDTIME 90 Active Baclofen 20 MG Orally 3 times a day 1 tablet with food or milk 8h May, 30 day(s) Active Nitroglycerin 0.4 MG Active Remeron 45 MG Orally Once a day at bedtime 1 tablet Feb, 30 days Active Albuterol Sulfate 2.5 mg /3 mL (0.083 %) 1 Each by Inhalation route every 4 hours for cough and wheeze PRN for wheezing or cough Jun, Not-Taking Singulair 10 MG Orally Once a day take 1 tablet (10 mg) by oral route once daily in the evening 24h Oct, Active Cetirizine HCl 10 MG Orally Once a day 1 tablet as needed 24h Not- Taking Zofran ODT 4 mg Orally every 4 hrs 1 tablet on the tongue and allow to dissolve 4h Jul, 1 days Active Tramadol HCl 50 MG Orally every 4 hrs 1 tablet as needed 4h Not- Taking HydrOXYzine HCl 50 MG Orally three times a day as needed 1 tablet 30 days Active Melatonin 5 MG Orally Once a day 1 tablet at bedtime as needed with food 24h Jun, 30 day(s) Not-Taking Eliquis 5 MG Orally 2 times a day 12h Active Namenda 10 MG TAKE 1 TABLET EVERY DAY Active Pantoprazole Sodium 40 MG Orally 2 times a day 1 tablet 12h Active Spiriva HandiHaler 18 MCG Inhalation Once a day 1 capsule 24h Active Mupirocin 2 % Externally two times a day 1 application to affected area 12h Active Lyrica 50 mg Orally Three times a day 1 capsule 8h Jun, Active Primidone 250 mg Orally Three times a day 1 tablet 8h 90 days Active Gabapentin 600 MG TAKE 1 TABLET THREE TIMES DAILY 90 Active Fluticasone Propionate 50 MCG/ACT Nasally 2 times a day 2 sprays in each nostril 12h 30 days Active Diltiazem HCl ER 240 MG Orally Once a day 1 capsule 24h Active Alendronate Sodium 70 MG TAKE 1 TABLET EVERY WEEK Active Welchol 625 MG Orally twice a day 2 tablets 12h Active Simvastatin 20mg Orally Once a day 1 tablet in the evening 24h Active Omeprazole 40 mg Orally Once a day 1 capsule 24h Active Benefiber - Active Vitamin D 50,000 Orally once a week 1 tablet Active Calcium Active Toprol XL 25 MG Orally Once a day 1 tablet 24h Active Magnesium Active Symbicort 160-4.5 MCG/ACT INHALE 2 PUFFS TWICE DAILY, IN THE MORNING AND IN THE EVENING 90 Active Promethazine-Codeine 6.25-10 MG/5ML Orally every 6 hrs 5 ml as needed 6h 15 Jun, 2017 Not-Taking Lomotil 2.5-0.025 mg Orally Four times a day TWO TABLETS 6h 30 Active Ventolin HFA 108 (90 Base) MCG/ACT INHALE 2 PUFFS EVERY 4 HOURS NEEDED 16 Active Abilify 5 MG Orally Once a day 1 tablet 24h Active Lamictal 25 MG Orally every night 3 tablets Apr, 30 days Active RESULTS No Results PROCEDURES Procedure Date Ordered Result Body Site [facility] VISIT ESTABLISHED PATIENT July 02, 2017 INSTRUCTIONS MEDICATIONS ADMINISTERED No Known Medications [...] Knee Surgery 07/16/17 Hospitalization History [facility] [place]- left hand/wrist swelling 10/09/2017
--- OUTSIDE RECORDS SUMMARY | 2018-01-01 12:36 | XMS REPORT ---
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 Name Role Phone SENAIT DUNLAP Unavailable PROBLEMS Type Condition ICD9-CM Code [id number] Code Onset Dates Condition Status SNOMED Code Problem History of common bile duct surgery Z98.89 Active 381941558 Problem Barretts esophagus K22.70 Active 973460937 Problem 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 Active 83227472 Problem Colon polyp K63.5 Active 92378534 Problem Bilateral low back pain without sciatica M54.5 Active 120655694 Problem Screening breast examination Z12.39 Active 657319936 Problem Postmenopausal Z78.0 Active 32552790 Problem Osteopenia M85.80 Active 216684883 Problem Cigarette nicotine dependence without complication F17.210 Active 76827216 Problem Type 2 diabetes mellitus with diabetic peripheral angiopathy without gangrene E11.51 Active 546181879 Problem Vascular dementia without behavioral disturbance F01.50 Active [id number] Problem Unspecified atherosclerosis of [place] arteries of extremities, unspecified extremity I70.209 Active 192962551248780 Problem Arthritis M19.90 Active 7657497 Problem Chronic atrial fibrillation I48.2 Active 498379275 Problem Chronic obstructive pulmonary disease with acute lower respiratory infection J44.0 Active 933162486 Problem Other chronic pancreatitis K86.1 Active 337833698 Problem Stress incontinence of urine N39.3 Active 63486205 Problem Controlled type 2 diabetes mellitus without complication, without long -term current use of insulin E11.9 Active 224576427 Problem Unspecified psychosis F29 Active 19533167 Problem Xeroderma Q80.9 Active 53773432 Problem COPD (chronic obstructive pulmonary disease) J44.9 Active 24403892 Problem Dementia without behavioral disturbance, unspecified dementia type F03.90 Active 96224368 Problem Gastroparesis K31.84 Active 588855121 Problem Type 2 diabetes mellitus with diabetic neuropathy, without long-term current use of insulin E11.40 Active 39392066 Problem Osteoporosis M81.0 Active 22801823 Problem Atherosclerosis of [place] artery of both lower extremities with intermittent claudication I70.213 Active 981855371750245 Problem Hyperlipidemia E78.5 Active 84114040 Problem Diabetic polyneuropathy associated with type 2 diabetes mellitus E11.42 Active 58852071 Problem Essential tremor G25.0 Active 43333292 Problem Atherosclerotic heart disease of [place]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 I25.118 Active 6419020567684 Problem Generalized anxiety disorder F41.1 Active 394503566 Problem Gastroesophageal reflux disease, esophagitis presence not specified K21.9 Active 780999295 Problem Coronary artery disease involving [place] coronary artery of [place] heart with other form of angina pectoris I25.118 Active 0383039181963 Problem Postconcussion syndrome F07.81 Active 09644994 Problem Chronic pain syndrome G89.4 Active 644642798 Problem Migraine without aura and without status migrainosus, not intractable G43.009 Active 746111646 Problem Paroxysmal atrial fibrillation I48.0 Active 552131874 Problem Migraine without aura and with status migrainosus, not intractable G43.001 Active 815882143 Problem Cervicalgia M54.2 Active 3539913494229 Problem Acute exacerbation of chronic obstructive pulmonary disease (COPD) J44.1 Active 529661235 Problem Major depressive disorder, recurrent episode, moderate F33.1 Active 938860317 Problem Crohn''s disease without complication, unspecified gastrointestinal tract location K50.90 Active 20634824 Problem Chronic fatigue R53.82 Active 80980425 Problem Bipolar affective disorder, currently depressed, moderate F31.32 Active 151620708 ALLERGIES No Information ENCOUNTERS Encounter Location Date Diagnosis [facility] [id number] [address] Nov, [facility] [address] [address] Nov, [facility] [id number] [address] Oct, [facility] [id number] [address] Oct, [facility] [address] [address] 16 Oct, 2017 [facility] [id number] [place] [address] 98653- 9434 Oct, Edema of both legs R60.0 [facility] [id number] [place] [address] 23667- 8196 Oct, [facility] [id number] [place] [address] 41004- 8526 Sep, [facility] [id number] [place] [address] 84882- 2763 Sep, [facility] [id number] [place] [address] 47978- 4713 Sep, [facility] [id number] [place] [address] 80664- 6432 Sep, Encounter for well woman exam with routine gynecological exam Z01.419 ; Screening for STDs (sexually transmitted diseases) Z11.3 ; Screening breast examination Z12.31 and Overweight (BMI 25.0-29.9) E66.3 [place] [id number] [place] [address] 55824- 9916 Sep, [facility] [address] [address] 1516 Sep, [facility] [address] [address] 9400 Sep, [facility] [address] [address] 2238 August, [facility] [id number] [place] [address] 44999- 1940 August, [facility] [address] [address] 2691 August, Type 2 diabetes mellitus with diabetic neuropathy, without long-term current use of insulin E11.40 and Sprain of right ankle, unspecified ligament, initial encounter S93.401A [facility] [id number] [address] August, [facility] [id number] [place] [address] 30991- 6425 August, [facility] [id number] [place] [address] 41644- 6365 August, [facility] [id number] [place] [address] 78670- 2618 August, Gastroesophageal reflux disease, esophagitis presence not specified K21.9 [facility] [id number] [place] [address] 30606- 9106 August, [facility] [id number] [place] [address] 14588- 0816 August, [facility] [id number] [place] [address] 11294- 8229 August, [facility] [id number] [place] [address] 11807- 8956 August, Type 2 diabetes mellitus with diabetic neuropathy, without long-term current use of insulin E11.40 and Elevated liver enzymes R74.8 [facility] [address] [address] Jul, [facility] [id number] [place] [address] 47319- 8489 Jul, Cough R05 [facility] [address] [address] 1218 Jul, [facility] [id number] [place] [address] 92033- 2251 Jul, [facility] [id number] [place] [address] 23302- 6911 Jul, Bipolar affective disorder, currently depressed, moderate F31.32 ; Vascular dementia without behavioral disturbance F01.50 and Generalized anxiety disorder F41.1 [facility] [id number] [place] [address] 62424- 6830 Jul, [facility] [address] 70880- 2089 Jul, Type 2 diabetes mellitus with diabetic neuropathy, without long-term current use of insulin E11.40 and Elevated liver enzymes R74.8 [facility] [address] 71319- 2519 Jul, [facility] [address] 64737- 2853 Jul, [place] [address] 24701- 8532 Jul, [facility] [id number] [place] [address] 30474- 9947 Jul, Post-menopausal Z78.0 [place] [address] 57751- 8296 Jul, Stress incontinence of urine N39.3 [facility] [id number] [place] [address] 32677- 5784 Jul, [place] [id number] [place] [address] 86399- 6468 Jul, [facility] [id number] [place] [address] 98048- 9274 Jul, Stress incontinence of urine N39.3 and Cough R05 [facility] [id number] [place] [address] 55785- 6733 Jul, [facility] [id number] [place] [address] 11779- 5874 Jul, [facility] [id number] [place] [address] 48313- 8141 Jul, [facility] [id number] [place] [address] 23087- 1517 Jul, Gastroesophageal reflux disease, esophagitis presence not specified K21.9 [facility] [id number] [place] [address] 61909- 4994 29 Jun, 2017 Diabetic polyneuropathy associated with type 2 diabetes mellitus E11.42 [facility] [id number] [place] [address] Jun, Diabetic polyneuropathy associated with type 2 diabetes mellitus E11.42 ; Coronary artery disease involving [place] coronary artery of [place] heart with other form of angina pectoris I25.118 and Paroxysmal atrial fibrillation I48.0 [facility] [id number] [place] [address] 73416- 0380 Jun, [facility] [address] 68343- 6766 Jun, [facility] [id number] [place] [address] 08866- 5523 Jun, Gastroenteritis K52.9 [facility] [id number] [place] [address] 29914- 5252 Jun, Gastroenteritis K52.9 [facility] [id number] [place] [address] 42149- 1284 Jun, [facility] [id number] [place] [address] 20084- 8197 Jun, [facility] [id number] [place] [address] 43495- 9061 Jun, Sprain of right ankle, unspecified ligament, initial encounter S93.401A ; Type 2 diabetes mellitus with diabetic neuropathy, without long-term current use of insulin E11.40 ; Atherosclerosis of [place] artery of both lower extremities with intermittent claudication I70.213 ; Atherosclerotic heart disease of [place]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 I25.118 ; Chronic atrial fibrillation I48.2 and Crohn''s disease without complication, unspecified gastrointestinal tract location K50.90 [facility] [address] [address] 17 Jun, 2017 Chronic obstructive pulmonary disease with acute lower respiratory infection J44.0 and Cough R05 [facility] [id number] [place] [address] 01914- 2029 Jun, [facility] [id number] [place] [address] 89020- 4417 Jun, Coughing R05 ; Unspecified atherosclerosis of [place] arteries of extremities, unspecified extremity I70.209 ; Type 2 diabetes mellitus with diabetic peripheral angiopathy without gangrene E11.51 ; Crohn''s disease without complication, unspecified gastrointestinal tract location K50.90 ; Other chronic pancreatitis K86.1 and Chronic atrial fibrillation I48.2 [facility] [id number] [place] [address] 92044 -3395 Jun, [facility] [id number] [place] [address] 49324- 7287 Jun, Bipolar affective disorder, currently depressed, moderate F31.32 ; Vascular dementia without behavioral disturbance F01.50 and Generalized anxiety disorder F41.1 [place] [id number] [place] [address] 20075- 3101 May, Generalized anxiety disorder F41.1 [place] [id number] [place] [address] 12184- 3207 May, [facility] [id number] [place] [address] 46513- 8809 May, [facility] [id number] [place] [address] 27023- 4775 May, Coughing R05 [facility] [id number] [place] [address] 24217- 2006 May, [facility] [id number] [place] [address] 31347- 4267 May, Bipolar affective disorder, currently depressed, moderate F31.32 ; Vascular dementia without behavioral disturbance F01.50 and Generalized anxiety disorder F41.1 [place] [id number] [place] [address] 11990- 0736 Apr, Generalized anxiety disorder F41.1 [facility] [id number] [place] [address] 66126- 9007 Apr, [facility] [id number] [place] [address] 74997- 4647 Apr, Vascular dementia without behavioral disturbance F01.50 ; Generalized anxiety disorder F41.1 and Bipolar affective disorder, currently depressed, moderate F31.32 [facility] [id number] [place] [address] 93402- 4906 Apr, Generalized anxiety disorder F41.1 [facility] [id number] [place] [address] 17027 -8689 Apr, Cough R05 and Acute exacerbation of chronic obstructive pulmonary disease (COPD) J44.1 [place] [id number] [place] [address] 02560- 0204 Apr, [facility] [id number] [place] [address] 73694 -9880 Mar, Cough R05 and Cigarette nicotine dependence without complication F17.210 [facility] [id number] [place] [address] 85666- 2289 Mar, [facility] [id number] [place] [address] 52368- 0344 Feb, Generalized anxiety disorder F41.1 ; Major depressive disorder, recurrent episode, moderate F33.1 ; Vascular dementia without behavioral disturbance F01.50 and Unspecified psychosis F29 [facility] [id number] [place] [address] 52509- 3197 Feb, [facility] [id number] [place] [address] 90812- 5296 Feb, [facility] [id number] [place] [address] 57753- 2817 Feb, Generalized anxiety disorder F41.1 [facility] [id number] [place] [address] 19703- 6942 Feb, Generalized anxiety disorder F41.1 [place] [address] 46652- 5325 Feb, Dizziness R42 ; Chronic fatigue R53.82 ; Postconcussion syndrome F07.81 ; Fall, initial encounter W19.XXXA and Disorientation R41.0 [place] [address] 55425- 7475 Feb, Postconcussion syndrome F07.81 ; Injury of head, initial encounter S09.90XA ; Fall, initial encounter W19.XXXA ; Disorientation R41.0 and Acute cystitis with hematuria N30.01 [place] [id number] [place] [address] 63143- 5507 Jan, Gastroesophageal reflux disease, esophagitis presence not specified K21.9 ; Post-menopausal Z78.0 and Migraine without aura and without status migrainosus, not intractable G43.009 [facility] [id number] [place] [address] 64219- 3333 Jan, [place] [address] 12914- 9076 Jan, Generalized anxiety disorder F41.1 ; Major depressive disorder, recurrent episode, moderate F33.1 ; Vascular dementia without behavioral disturbance F01.50 and Unspecified psychosis F29 [place] [id number] [place] [address] 77410- 5129 Jan, Pneumonia of left lower lobe due to infectious organism J18.1 [place] [id number] [place] [address] 07543- 8477 Jan, Migraine without aura and with status migrainosus, not intractable G43.001 [facility] [id number] [place] [address] 47735 -2893 Jan, Migraine without aura and without status migrainosus, not intractable G43.009 [facility] [id number] [address]- 2653 Dec, Hematoma T14.8 [facility] [id number] [place] [address] 70569- 4976 Dec, [facility] [id number] [place] [address] 39414 -5192 Nov, Fatigue, unspecified type R53.83 [facility] [id number] [place] [address] 15528- 7834 Nov, Scabies B86 and Coronary artery disease involving [place] coronary artery of [place] heart with other form of angina pectoris I25.118 [facility] [id number] [place] [address] 12964- 0815 Nov, [facility] [id number] [place] [address] 69693- 3902 Nov, [facility] [id number] [place] [address] 71565- 5955 Oct, [facility] [id number] [place] [address] 43813- 4730 Oct, Generalized anxiety disorder F41.1 and Major depressive disorder, recurrent episode, moderate F33.1 [facility] [id number] [place] [address] 85739- 4760 Oct, Cramp of both lower extremities R25.2 [facility] [id number] [place] [address] 13348- 7676 Oct, Leg cramps R25.2 [facility] [id number] [place] [address] 15476- 0870 Oct, Chronic pain syndrome G89.4 [facility] [id number] [place] [address] 52163- 9863 Oct, [facility] [id number] [place] [address] 52640- 0919 Oct, [facility] [id number] [place] [address] 46070- 0400 11 Oct, 2016 Routine gynecological examination Z01.419 and Screening for breast cancer Z12.31 [place] [id number] [place] [address] 83969- 4677 28 Sep, 2016 Diarrhea R19.7 [place] [id number] [place] [address] 38060- 8334 Sep, Back pain M54.9 [place] [id number] [place] [address] 74635- 0981 Sep, [place] [id number] [place] [address] 62663- 2106 Sep, [facility] [place] [id number] [place] [address] 63398 -8284 August, Xeroderma Q80.9 [place] [address] 91799- 5143 August, Dementia without behavioral disturbance, unspecified dementia type F03.90 [place] [id number] [place] [address] 29808- 8603 August, Chronic pain syndrome G89.4 [place] [id number] [place] [address] 15346- 1239 August, [place] [id number] [place] [address] 19188- 2727 August, Hyperlipidemia E78.5 ; Other fatigue R53.83 and Other specified hypotension I95.89 [facility] [id number] [place] [address] 27202 -0631 August, Dysuria R30.0 ; Other fatigue R53.83 and Other specified hypotension I95.89 [place] [id number] [place] [address] 25421- 3123 August, [place] [id number] [place] [address] 08169- 2633 Jul, Pain in left knee M25.562 and Gastroenteritis K52.9 [place] [address] 48279- 5219 Jul, [place] [address] 83587- 2050 Jul, Diarrhea R19.7 [facility] [address] 01700 -2012 Jul, Spider bite, accidental or unintentional, initial encounter T63.301A [place] [address] 96199- 2674 Jul, Primary osteoarthritis of right knee M17.11 and Arthritis M19.90 [place] [address] 56338- 7223 Jul, Generalized anxiety disorder F41.1 and Major depressive disorder, recurrent episode, moderate F33.1 [place] [address] 22204- 0921 07 Jul, 2016 Type 2 diabetes mellitus with diabetic polyneuropathy E11.42 and Temporal headache R51 [place] [address] 08426- 6201 Jul, Back pain M54.9 [place] [address] 73405- 7708 Jul, [place] [address] 18530- 4110 Jul, [place] [id number] [place] [address] 65763- 0645 Jun, Nausea R11.0 [facility] [address] 79133 -9491 Jun, Acute suppurative otitis media of both ears without spontaneous rupture of tympanic membranes, recurrence not specified H66.003 and COPD exacerbation J44.1 [place] [address] [place] [address]- 2084 Jun, Generalized anxiety disorder F41.1 [facility] [address] 61262- 9715 16 Jun, 2016 [facility] [id number] [place] [address] 87164 -0312 Jun, [facility] [address] 21749 -4368 Jun, Shortness of breath R06.02 and COPD exacerbation J44.1 [place] [address] 65947- 1958 Jun, Eczema, unspecified type L30.9 [place] [address] 83148- 7211 Jun, [place] [address] 41509- 5575 May, [place] [address] 85549- 2501 May, Muscle cramping R25.2 [place] [address] 37802- 4323 May, [place] [id number] [place] [address] 23003- 0337 Apr, Diarrhea R19.7 [place] [id number] [place] [address] 06075- 0042 Apr, [place] [id number] [place] [address] 37813- 8922 Apr, Chronic pain syndrome G89.4 [place] [id number] [place] [address] 88066- 2515 Apr, Cramp of both lower extremities R25.2 and Vascular dementia without behavioral disturbance F01.50 [place] [address] 40906- 1742 Apr, Type 2 diabetes mellitus with diabetic polyneuropathy E11.42 and Cigarette nicotine dependence without complication F17.210 [place] [address] 66991- 5807 Mar, Generalized anxiety disorder F41.1 [place] [address] 47287- 2623 Feb, Generalized anxiety disorder F41.1 and Major depressive disorder, recurrent episode, moderate F33.1 [place] [address] 63432- 2329 Feb, [facility] [address] 06063 -7261 Feb, Dysuria R30.0 and Acute cystitis with hematuria N30.01 [place] [address] 92023- 4340 Jan, [place] [address] 50541- 0219 Jan, [place] [address] 28138- 3311 Jan, [place] [address] 24936- 3271 Jan, [facility] [address] 96737 -6331 Jan, Wasp sting, accidental or unintentional, initial encounter T63.461A [place] [address] 65134- 9015 Jan, Encounter for immunization Z23 [place] [address] 43892- 0349 Jan, [place] [address] 98306- 2189 Jan, [place] [address] 11572- 2843 28 Dec, 2015 Generalized anxiety disorder F41.1 and Major depressive disorder, recurrent episode, moderate F33.1 [facility] [id number] [place] [address] 39948- 9968 21 Dec, 2015 Routine gynecological examination Z01.419 ; Postmenopausal Z78.0 ; Screening breast examination Z12.39 ; Osteopenia M85.80 and Breast cancer screening Z12.39 [facility] [id number] [place] [address] 84293- 2130 20 Dec, 2015 [facility] [id number] [place] [address] 79608- 3048 19 Dec, 2015 [facility] [id number] [place] [address] 69250- 9720 16 Dec, 2015 [facility] [id number] [place] [address] 06546- 0473 Dec, [facility] [id number] [place] [address] 44945- 3881 14 Dec, 2015 [facility] [id number] [place] [address] 79011- 3111 Dec, [facility] [id number] [place] [address] 02555- 5947 Nov, [facility] [id number] [place] [address] 04689 -2914 Nov, Cough R05 ; Other viral agents as the cause of diseases classified elsewhere B97.89 and Acute upper respiratory infection, unspecified J06.9 [facility] [id number] [place] [address] 68993- 4611 Nov, [facility] [id number] [place] [address] 94117- 9260 Nov, [facility] [id number] [place] [address] 92445- 9064 Nov, [facility] [address] [id number] [address] 3433 15 Nov, 2015 [facility] [id number] [place] [address] 22923- 8989 Nov, [facility] [id number] [place] [address] 35155- 3887 Oct, [facility] [id number] [place] [address] 92311- 7105 Oct, [facility] [id number] [place] [address] 81775- 6633 Oct, [facility] [id number] [place] [address] 70394- 5189 Oct, Chronic pain syndrome G89.4 [facility] [id number] [place] [address] 45247- 4794 Sep, Generalized anxiety disorder F41.1 and Major depressive disorder, recurrent episode, moderate F33.1 [facility] [id number] [place] [address] 72906- 5532 Sep, [facility] [id number] [place] [address] 06986- 9636 Sep, [facility] [id number] [place] [address] 93727- 5132 Sep, Generalized anxiety disorder F41.1 [facility] [id number] [place] [address] 62930- 8129 Sep, Cramp of both lower extremities R25.2 and Cervicalgia M54.2 [facility] [id number] [place] [address] 25402- 3218 Sep, Generalized anxiety disorder F41.1 [facility] [id number] [place] [address] 11945- 5372 Sep, [facility] [id number] [place] [address] 35841 -7120 August, Rash R21 ; Itching L29.9 and Allergic response, subsequent encounter T78.40XD [facility] [id number] [place] [address] 92293- 3241 August, Primary insomnia F51.01 [facility] [id number] [place] [address] 50117 -7512 August, Rash R21 ; Itching L29.9 and Allergic response, initial encounter T78.40XA [facility] [id number] [place] [address] 57884- 0405 August, [facility] [id number] [place] [address] 04057- 2064 August, Cramp of both lower extremities R25.2 [facility] [id number] [place] [address] 66212- 4464 August, Back pain M54.9 [facility] [id number] [place] [address] 90041- 1904 August, [facility] [id number] [place] [address] 29895- 3472 August, [facility] [id number] [place] [address] 23849 -0897 August, Cramp of both lower extremities R25.2 [facility] [id number] [place] [address] 57576- 7062 August, [facility] [id number] [place] [address] 51143- 7604 August, Syncope R55 ; Paroxysmal atrial fibrillation I48.0 ; Dementia without behavioral disturbance, unspecified dementia type F03.90 and Chronic pain syndrome G89.4 [facility] [id number] [place] [address] 73838- 4963 August, Type 2 diabetes mellitus with diabetic polyneuropathy E11.42 and Syncope R55 [facility] [id number] [place] [address] 28012- 2590 Jul, [facility] [address] [facility] [id number] [address] 8872 Jul, [facility] [address] [facility] [id number] [address]- 7724 Jul, [facility] [address] [facility] [id number] [address]- 0601 Jul, [facility] [address] [facility] [id number] [address]- 4448 Jul, [facility] [address] [facility] [id number] [address]- 6836 Jul, UTI (urinary tract infection) N39.0 [facility] [id number] [address]- 4326 Jul, [facility] [id number] [address]- 3320 Jul, Major depressive disorder, recurrent episode, moderate F33.1 and Generalized anxiety disorder F41.1 [facility] [address] [address]- 3184 Jul, Generalized anxiety disorder F41.1 [facility] [id number] [address]- 9199 Jul, Diarrhea R19.7 [facility] [id number] [address]- 7730 Jul, [facility] [id number] [address]- 9654 Jun, [facility] [id number] [address]- 8753 Jun, Eczema L30.9 [facility] [address] [facility] [id number] [address]- 9561 Jun, [facility] [address] [id number] [address]- 9698 17 Jun, 2015 COPD (chronic obstructive pulmonary disease) J44.9 [facility] [address] [address]- 6332 Jun, [facility] [id number] [address]- 5689 Jun, Major depressive disorder, recurrent episode, moderate F33.1 and Generalized anxiety disorder F41.1 [facility] [address] [address]- 7791 May, [facility] [id number] [address]- 1859 May, UTI (urinary tract infection) N39.0 [facility] [id number] [address]- 6650 May, [facility] [id number] [address]- 8782 May, [facility] [id number] [address]- 2415 May, [facility] [id number] [address]- 0970 May, [facility] [address] [address]- 6072 Apr, Major depressive disorder, recurrent episode, moderate F33.1 and Generalized anxiety disorder F41.1 [facility] [address] [address]- 6452 Apr, COPD (chronic obstructive pulmonary disease) J44.9 [facility] [id number] [address]- 2304 Apr, [facility] [id number] [address]- 9357 Apr, Atrial flutter I48.92 [facility] [id number] [address]- 5240 Apr, [facility] [id number] [address]- 7568 Apr, [facility] [id number] [place] [address] 00945- 2981 Mar, [facility] [id number] [place] [address] 26898- 3787 Mar, [facility] [id number] [place] [address] 04834- 3710 Mar, [facility] [id number] [place] [address] 31754- 0413 Mar, Hyperlipidemia E78.5 ; Type 2 diabetes mellitus with diabetic polyneuropathy E11.42 ; Major depressive disorder, recurrent episode, moderate F33.1 and Chronic pain syndrome G89.4 [facility] [id number] [place] [address] 25897- 8351 Mar, [facility] [id number] [place] [address] 24218- 0497 Mar, [facility] [id number] [place] [address] 48800- 5227 Mar, [facility] [id number] [place] [address] 44713- 7423 Mar, [facility] [id number] [place] [address] 57157- 8340 Feb, COPD (chronic obstructive pulmonary disease) J44.9 and Back pain M54.9 [facility] [id number] [address]- 6940 Feb, [facility] [id number] [place] [address] 89938- 5242 Feb, [facility] [address] [address]- 4251 Feb, [facility] [id number] [place] [address] 56927- 0207 Feb, [facility] [address] [address]- 8161 Feb, [facility] [id number] [place] [address] 67364- 0976 Feb, [facility] [id number] [place] [address] 10878- 4443 Feb, [facility] [id number] [place] [address] 81501- 5262 Feb, [facility] [id number] [place] [address] 81583- 1643 Feb, Diabetes E11.9 ; Back pain M54.9 and COPD (chronic obstructive pulmonary disease) J44.9 [facility] [id number] [place] [address] 40127- 9626 Jan, [facility] [id number] [place] [address] 52070- 5790 Jan, Major depression, recurrent F33.9 and Generalized anxiety disorder F41.1 [facility] [id number] [place] [address] 49515- 8593 Jan, Chronic pain G89.29 [facility] [id number] [place] [address] 18202- 5187 Jan, [facility] [id number] [place] [address] 96641- 1826 Jan, [facility] [id number] [place] [address] 17053- 4970 Jan, [facility] [id number] [place] [address] 16568- 7865 Jan, [facility] [id number] [place] [address] 60777- 0176 Jan, Nicotine dependence F17.200 [facility] [id number] [place] [address] 61319- 9286 Jan, Nicotine dependence F17.200 and Back pain M54.9 [facility] [id number] [place] [address] 27264- 8863 Jan, [facility] [id number] [place] [address] 55561- 3786 28 Dec, 2014 [facility] [id number] [place] [address] 09737- 0498 25 Dec, 2014 Anxiety, generalized 300.02 and Major depression, recurrent 296.30 [facility] [id number] [place] [address] 93427- 4988 24 Dec, 2014 [facility] [address] 77845- 5870 21 Dec, 2014 [facility] [id number] [place] [address] 18851- 3327 17 Dec, 2014 [facility] [id number] [place] [address] 59821- 3213 15 Dec, 2014 [facility] [id number] [place] [address] 61097- 1674 14 Dec, 2014 [facility] [id number] [place] [address] 63554- 2628 11 Dec, 2014 [facility] [id number] [place] [address] 84118- 2719 10 Dec, 2014 [facility] [id number] [place] [address] 00759- 2363 08 Dec, 2014 Skin tear 879.8 [facility] [id number] [place] [address] 10806- 5200 08 Dec, 2014 Routine gynecological examination V72.31 ; Breast cancer screening V76.10 and Family history of breast cancer in first degree relative V16.3 [facility] [id number] [place] [address] 62167- 1592 03 Dec, 2014 [facility] [id number] [place] [address] 80442- 8120 Dec, [facility] [address] [address]- 4684 Nov, [facility] [id number] [place] [address] 14388- 7454 Nov, [facility] [id number] [place] [address] 03177- 2083 Nov, Poor balance 781.99 and Vascular dementia, uncomplicated 290.40 [facility] [id number] [place] [address] 03712- 2257 Nov, [facility] [id number] [place] [address] 71688- 9854 Nov, Major depression, recurrent 296.30 and Anxiety, generalized 300.02 [facility] [id number] [place] [address] 88563- 9394 Nov, [facility] [id number] [place] [address] 83867- 3506 Nov, [facility] [id number] [place] [address] 93039- 4627 Nov, [facility] [address] [address]- 1816 Nov, [facility] [address] [address]- 7221 Nov, Vascular dementia, uncomplicated 290.40 and Lumbago 724.2 [facility] [id number] [address]- 2364 Nov, [facility] [id number] [address]- 7313 Nov, [facility] [id number] [address]- 5186 Nov, [facility] [id number] [address]- 7613 Oct, [facility] [id number] [address]- 2807 Oct, [facility] [id number] [address]- 2181 Oct, [facility] [id number] [address]- 7070 Oct, COPD (chronic obstructive pulmonary disease) 496 and Hyperlipidemia 272.4 [facility] [id number] [address]- 1608 Oct, Major depression, recurrent 296.30 and Anxiety, generalized 300.02 [facility] [id number] [address]- 6879 Oct, [facility] [id number] [address]- 3392 Oct, [facility] [id number] [address]- 8057 Oct, [facility] [id number] [address]- 4685 Sep, Lumbago 724.2 and Anxiety state, unspecified 300.00 [facility] [id number] [address]- 0586 Sep, [facility] [id number] [address]- 1009 Sep, [facility] [id number] [address]- 7460 August, [facility] [id number] [address]- 7992 August, Major depression, recurrent 296.30 ; Anxiety, generalized 300.02 and No condition on [place] V71.09 [facility] [id number] [address]- 6187 August, [facility] [id number] [address]- 2252 August, [facility] [place] [facility] [address] [id number] [place] [address]- 0929 29 Jul, 2014 [facility] [place] [facility] [address] [id number] [place] [address]- 2246 14 Jul, 2014 [facility] [place] [facility] [address] [id number] [place] [address]- 8765 Jul, [facility] [place] [facility] [address] [id number] [place] [address]- 5888 30 Jun, 2014 [facility] [place] [facility] [address] [id number] [place] [address]- 4512 30 Jun, 2014 [facility] [place] [facility] [address] [id number] [place] [address]- 3559 27 Jun, 2014 [facility] [place] [facility] [address] [id number] [place] [address]- 9893 27 Jun, 2014 [facility] [place] [facility] [address] [id number] [place] [address]- 5121 26 Jun, 2014 [facility] [place] [facility] [address] [id number] [place] [address]- 8959 23 Jun, 2014 [facility] [place] [facility] [address] [id number] [place] [address]- 8493 23 Jun, 2014 [facility] [place] [facility] [address] [id number] [place] [address]- 9191 17 Jun, 2014 [facility] [place] [facility] [address] [id number] [place] [address]- 0945 13 Jun, 2014 [facility] [place] [facility] [address] [id number] [place] [address]- 1816 13 Jun, 2014 [facility] [place] [facility] [address] [id number] [place] [address]- 3139 10 Jun, 2014 [facility] [place] [facility] [address] [id number] [place] [address]- 1785 10 Jun, 2014 [facility] [place] [facility] [address] [id number] [place] [address]- 6720 Jun, 2014 [facility] [place] [facility] [address] [id number] [place] [address]- 5920 Jun, 2014 [facility] [place] [facility] [address] [id number] [place] [address]- 0778 Jun, 2014 [facility] [place] [facility] [address] [id number] [place] [address]- 0077 Jun, 2014 [facility] [place] [facility] [address] [id number] [place] [address]- 3872 May, 2014 [facility] [place] [facility] [address] [id number] [place] [address]- 1742 May, 2014 [facility] [place] [facility] [address] [id number] [place] [address]- 1576 May, 2014 [facility] [place] [facility] [address] [id number] [place] [address]- 5831 May, 2014 [facility] [place] [facility] [address] [id number] [place] [address]- 5514 May, 2014 [facility] [place] [facility] [address] [id number] [place] [address]- 9548 May, 2014 [facility] [place] [facility] [address] [id number] [place] [address]- 3950 May, 2014 [facility] [place] [facility] [address] [id number] [place] [address]- 6759 May, 2014 [facility] [place] [facility] [address] [id number] [place] [address]- 5006 May, 2014 [facility] [place] [facility] [address] [id number] [place] [address]- 3336 May, 2014 [facility] [place] [facility] [address] [facility] [id number] [place] [address]- 0874 06 May, 2014 [facility] [place] [facility] [address] [id number] [place] [address]- 6808 May, [facility] [place] [facility] [address] [id number] [place] [address]- 0049 May, [facility] [place] [facility] [address] [id number] [place] [address]- 2746 May, [facility] [place] [facility] [address] [id number] [place] [address]- 3746 Apr, [facility] [place] [facility] [address] [id number] [place] [address]- 6935 Apr, [facility] [place] [facility] [address] [id number] [place] [address]- 4929 Apr, [facility] [place] [facility] [address] [id number] [place] [address]- 4144 Apr, [facility] [place] [facility] [address] [id number] [place] [address]- 9162 Apr, [facility] [place] [facility] [address] [id number] [place] [address]- 7500 Apr, [facility] [place] [facility] [address] [id number] [place] [address]- 9852 Apr, [facility] [place] [facility] [address] [id number] [place] [address]- 7463 Apr, [facility] [place] [facility] [address] [id number] [place] [address]- 4348 Apr, [facility] [place] [facility] [address] [id number] [place] [address]- 1351 Apr, [facility] [place] [facility] [address] [id number] [place] [address]- 9827 Apr, [facility] [place] [facility] [address] [id number] [place] [address]- 7396 Apr, [facility] [place] [facility] [address] [id number] [place] [address] 31 Mar, 2014 [facility] [place] [facility] [address] [id number] [place] [address] 31 Mar, 2014 [facility] [place] [facility] [address] [id number] [place] [address] 30 Mar, 2014 [facility] [place] [facility] [address] [id number] [place] [address] 30 Mar, 2014 [facility] [place] [facility] [address] [id number] [place] [address] 29 Mar, 2014 [facility] [place] [facility] [address] [id number] [place] [address] 29 Mar, 2014 [facility] [place] [facility] [address] [id number] [place] [address] Mar, [facility] [place] [facility] [address] [id number] [place] [address] Mar, [facility] [place] [facility] [address] [id number] [place] [address] 15 Mar, 2014 [facility] [place] [facility] [address] [id number] [place] [address] 15 Mar, 2014 [facility] [place] [facility] [address] [id number] [place] [address] 15 Mar, 2014 [facility] [place] [facility] [address] [id number] [place] [address] 15 Mar, 2014 [facility] [place] [facility] [address] [id number] [place] [address] 15 Mar, 2014 [facility] [place] [facility] [address] [id number] [place] [address] 1668 15 Mar, 2014 [facility] [place] [facility] [address] [id number] [place] [address] 08 Mar, 2014 [facility] [place] [facility] [address] [id number] [place] [address] 08 Mar, 2014 [facility] [place] [facility] [address] [id number] [place] [address] Mar, [facility] [place] [facility] [address] [id number] [place] [address] Mar, [facility] [place] [facility] [address] [id number] [place] [address] Mar, [facility] [place] [facility] [address] [id number] [place] [address] Mar, [facility] [place] [facility] [address] [id number] [place] [address] Feb, [facility] [place] [facility] [address] [id number] [place] [address] Feb, [facility] [place] [facility] [address] [id number] [place] [address] Feb, [facility] [place] [facility] [address] [id number] [place] [address] Feb, [facility] [place] [facility] [address] [id number] [place] [address] 14[address] Feb, [facility] [place] [facility] [address] [id number] [place] [address] Feb, [facility] [place] [facility] [address] [id number] [place] [address] Feb, [facility] [place] [facility] [address] [id number] [place] [address] Feb, [facility] [place] [facility] [address] [id number] [place] [address] Feb, [facility] [place] [facility] [address] [id number] [place] [address] Feb, [facility] [place] [facility] [address] [id number] [place] [address] 94[address] Feb, [facility] [place] [facility] [address] [id number] [address] Feb, [facility] [place] [facility] [address] [id number] [place] [address] Feb, [facility] [place] [facility] [address] [id number] [place] [address] Feb, [facility] [place] [facility] [address] [id number] [place] [address] Feb, [facility] [place] [facility] [address] [id number] [place] [address] Feb, [facility] [place] [facility] [address] [id number] [place] [address] Feb, [facility] [place] [facility] [address] [id number] [place] [address] 36[address] Jan, [facility] [place] [facility] [address] [id number] [place] [address] 9257 Jan, [facility] [place] [facility] [address] [id number] [place] [address] 3544 Jan, [facility] [place] [facility] [address] [id number] [place] [address] 9112 Jan, [facility] [place] [facility] [address] [id number] [place] [address] 6614 Jan, [facility] [place] [facility] [address] [id number] [place] [address] 1674 Jan, [facility] [place] [facility] [address] [id number] [place] [address] 5277 Jan, [facility] [place] [facility] [address] [id number] [place] [address]- 7836 Jan, [facility] [place] [facility] [address] [id number] [place] [address]- 9428 Jan, [facility] [place] [facility] [address] [id number] [place] [address]- 9969 Jan, [facility] [place] [facility] [address] [id number] [place] [address]- 0084 Jan, [facility] [place] [facility] [address] [id number] [place] [address]- 1438 Dec, [facility] [place] [facility] [address] [id number] [place] [address] Dec, [facility] [place] [facility] [address] [id number] [place] [address]- 4476 Nov, [facility] [place] [facility] [address] [id number] [place] [address]- 1988 Nov, [facility] [place] [facility] [address] [id number] [place] [address]- 5641 Nov, [facility] [place] [facility] [address] [id number] [place] [address]- 8352 Nov, [facility] [place] [facility] [address] [id number] [place] [address] 9800 Nov, [facility] [place] [facility] [address] [id number] [place] [address]- 7276 Nov, [facility] [place] [facility] [address] [id number] [place] [address]- 6766 Nov, [facility] [place] [facility] [address] [id number] [place] [address]- 5124 Oct, [facility] [place] [facility] [address] [id number] [place] [address]- 3641 Oct, [facility] [place] [facility] [address] [id number] [place] [address]- 6628 Oct, [facility] [place] [facility] [address] [id number] [place] [address]- 7023 Oct, [facility] [place] [facility] [address] [id number] [place] [address]- 8103 Sep, [facility] [place] [facility] [address] [id number] [place] [address]- 6870 Sep, [facility] [place] [facility] [address] [id number] [place] [address]- 6175 Sep, [facility] [place] [facility] [address] [id number] [place] [address]- 8740 Sep, [facility] [place] [facility] [address] [id number] [place] [address]- 0240 Sep, [facility] [place] [facility] [address] [id number] [place] [address]- 0059 Sep, [facility] [place] [facility] [address] [id number] [place] [address]- 4077 Sep, [facility] [place] [facility] [address] [id number] [place] [address]- 2471 Sep, [facility] [place] [facility] [address] [id number] [place] [address]- 9583 Sep, [facility] [place] [facility] [address] [id number] [place] [address]- 8098 Sep, [facility] [place] [facility] [address] [id number] [place] [address]- 3281 Sep, [facility] [place] [facility] [address] [id number] [place] [address]- 3092 Sep, [facility] [place] [facility] [address] [id number] [place] [address]- 7040 Sep, [facility] [place] [facility] [address] [id number] [place] [address]- 6282 Sep, [facility] [place] [facility] [address] [id number] [place] [address]- 1690 August, [facility] [place] [facility] [address] [id number] [place] [address]- 1469 August, [facility] [place] [facility] [address] [id number] [place] [address]- 2971 August, [facility] [place] [facility] [address] [id number] [place] [address]- 2607 August, [facility] [address] [id number] [place] [address] 1260 August, [facility] [place] [facility] [address] [id number] [place] [address]- 2879 August, [facility] [place] [facility] [address] [id number] [place] [address] August, [facility] [place] [facility] [address] [id number] [place] [address]- 6822 August, [facility] [place] [facility] [address] [id number] [place] [address]- 2576 August, [facility] [place] [facility] [address] [id number] [place] [address]- 5460 August, [facility] [place] [facility] [address] [id number] [place] [address]- 1386 August, [facility] [place] [facility] [address] [id number] [place] [address]- 1313 August, [facility] [place] [facility] [address] [id number] [place] [address]- 3025 August, [facility] [place] [facility] [address] [id number] [place] [address]- 1892 August, [facility] [place] [facility] [address] [id number] [place] [address]- 8613 August, [facility] [place] [facility] [address] [id number] [place] [address]- 2135 August, [facility] [place] [facility] [address] [id number] [place] [address]- 9290 August, [facility] [place] [facility] [address] [id number] [place] [address] 3012 August, [facility] [place] [facility] [address] [id number] [place] [address]- 9205 August, [facility] [place] [facility] [address] [id number] [place] [address]- 7916 Jul, [facility] [place] [facility] [address] [id number] [place] [address]- 5287 Jul, [facility] [place] [facility] [address] [id number] [place] [address]- 7154 Jul, [facility] [place] [facility] [address] [id number] [place] [address]- 7638 Jul, [facility] [place] [facility] [address] [id number] [place] [address]- 3966 Jun, [facility] [place] [facility] [address] [id number] [place] [address]- 2062 Jun, [facility] [place] [facility] [address] [id number] [place] [address]- 0847 Jun, [facility] [place] [facility] [address] [id number] [place] [address]- 8686 Jun, [facility] [place] [facility] [address] [id number] [place] [address]- 2569 Jun, [facility] [place] [facility] [address] [id number] [place] [address]- 2887 Jun, [facility] [place] [facility] [address] [id number] [place] [address]- 1574 Jun, [facility] [place] [facility] [address] [id number] [place] [address]- 3433 Jun, [facility] [place] [facility] [address] [id number] [place] [address]- 0868 Jun, [facility] [place] [facility] [address] [id number] [place] [address]- 5216 Jun, [facility] [place] [facility] [address] [id number] [place] [address]- 3221 May, [facility] [place] [facility] [address] [id number] [place] [address]- 3631 May, [facility] [place] [facility] [address] [id number] [place] [address]- 6012 May, [facility] [place] [facility] [address] [id number] [place] [address]- 4636 May, [facility] [place] [facility] [address] [id number] [place] [address]- 3666 May, [facility] [place] [facility] [address] [id number] [place] [address]- 5689 May, 2013 [facility] [place] [facility] [address] [id number] [place] [address]- 3304 20 May, 2013 [facility] [place] [facility] [address] [id number] [place] [address]- 1110 May, [facility] [place] [facility] [address] [facility] [id number] [place] [address]- 0782 May, [facility] [place] [facility] [address] [id number] [place] [address]- 8878 18 May, 2013 [facility] [place] [facility] [address] [id number] [place] [address]- 3390 18 May, 2013 [facility] [place] [facility] [address] [facility] [id number] [place] [address]- 3909 17 May, 2013 [facility] [place] [facility] [address] [facility] [id number] [place] [address]- 1350 May, 2013 [facility] [place] [facility] [address] [id number] [place] [address]- 6403 May, 2013 [facility] [place] [facility] [address] [id number] [place] [address]- 1225 10 May, 2013 [facility] [place] [facility] [address] [id number] [place] [address]- 0752 07 May, 2013 [facility] [place] [facility] [address] [facility] [id number] [place] [address]- 4630 07 May, 2013 [facility] [place] [facility] [address] [id number] [place] [address]- 3229 17 Apr, 2013 [facility] [address] [id number] [place] [address]- 7685 Apr, [facility] [address] [id number] [place] [address]- 7236 15 Apr, 2013 [facility] [address] [id number] [place] [address]- 5776 Apr, [facility] [address] [id number] [place] [address]- 4750 Apr, [facility] [address] [id number] [place] [address]- 6493 Apr, [facility] [address] [id number] [place] [address]- 8887 Apr, [facility] [address] [id number] [place] [address]- 1565 Mar, [facility] [address] [id number] [place] [address]- 3824 Mar, [facility] [address] [id number] [place] [address]- 7525 Mar, [facility] [address] [id number] [place] [address]- 9099 Mar, [facility] [address] [id number] [place] [address]- 5211 Mar, [facility] [address] [id number] [place] [address]- 1557 Mar, [facility] [address] [id number] [place] [address]- 3528 Mar, [facility] [address] [id number] [place] [address]- 6406 Mar, [facility] [address] [id number] [place] [address]1 Mar, [facility] [address] [id number] [place] [address]- 7691 Mar, [facility] [place] [facility] [address] [id number] [place] [address]- 6933 Mar, [facility] [place] [facility] [address] [id number] [place] [address]- 5544 Feb, [facility] [place] [facility] [address] [id number] [place] [address]- 7476 Feb, [facility] [place] [facility] [address] [id number] [place] [address]- 2649 Feb, [facility] [place] [facility] [address] [id number] [place] [address]- 5556 Feb, [facility] [place] [facility] [address] [id number] [place] [address]- 4059 Feb, [facility] [place] [facility] [address] [id number] [address]- 3370 Feb, [facility] [place] [facility] [address] [id number] [place] [address]- 7793 15 Feb, 2013 [facility] [place] [facility] [address] [id number] [address]- 6584 14 Feb, 2013 [facility] [place] [facility] [address] [id number], [place] [address]- 6831 14 Feb, 2013 [facility] [place] [facility] [address] [id number] [address]- 1649 13 Feb, 2013 [facility] [place] [facility] [address] [id number] [address]- 1623 13 Feb, 2013 [facility] [place] [facility] [address] [id number], [place] [address]- 0591 12 Feb, 2013 [facility] [place] [facility] [address] [id number], [place] [address]- 4553 12 Feb, 2013 [facility] [place] [facility] [address] [id number], [place] [address]- 8781 Feb, [facility] [place] [facility] [address] [id number] [place] [address]- 5424 Feb, [facility] [place] [facility] [address] [id number], [place] [address]- 7676 Feb, [facility] [place] [facility] [address] [id number] [place] [address]- 3083 Jan, [facility] [place] [facility] [address] [id number] [place] [address]- 9851 Jan, [facility] [place] [facility] [address] [id number] [place] [address]- 7841 Jan, [facility] [place] [facility] [address] [id number] [place] [address]- 5869 Jan, [facility] [place] [facility] [address] [id number], [place] [address]- 4724 Jan, [facility] [place] [facility] [address] [id number] [place] [address]- 7015 Jan, [facility] [place] [facility] [address] [facility] [id number] [place] [address]- 5215 Jan, [facility] [place] [facility] [address] [facility] [id number], [place] [address]- 9646 Jan, [facility] [place] [facility] [address] [id number], [place] [address]- 3628 10 Jan, 2013 [facility] [place] [facility] [address] [id number], [place] [address]- 9321 27 Dec, 2012 [facility] [place] [facility] [address] [id number] [place] [address]- 2543 20 Dec, 2012 [facility] [place] [facility] [address] [facility] [id number] [place] [address]- 5666 19 Dec, 2012 [facility] [place] [facility] [address] [facility] [id number], [place] [address]- 6764 10 Dec, 2012 [facility] [place] [facility] [address] [id number] [place] [address]- 9386 Dec, [facility] [place] [facility] [address] [id number] [place] [address]- 7113 Dec, [facility] [place] [facility] [address] [id number] [place] [address]- 0745 Nov, [facility] [place] [facility] [address] [id number] [place] [address]- 8749 Nov, [facility] [place] [facility] [address] [id number] [place] [address]- 3643 Nov, [facility] [place] [facility] [address] [id number] [place] [address]- 8918 Nov, [facility] [place] [facility] [address] [id number] [place] [address]- 2552 Nov, [facility] [place] [facility] [address] [id number] [place] [address]- 8879 Nov, [facility] [place] [facility] [address] [id number] [place] [address]- 9495 Nov, [facility] [place] [facility] [address] [id number] [place] [address]- 9847 Nov, [facility] [place] [facility] [address] [id number] [place] [address]- 3416 Nov, [facility] [place] [facility] [address] [id number] [place] [address]- 2208 Nov, [facility] [place] [facility] [address] [id number] [place] [address]- 5032 Oct, [facility] [place] [facility] [address] [id number] [place] [address]- 1899 Oct, [facility] [place] [facility] [address] [id number] [place] [address]- 3717 Oct, [facility] [place] [facility] [address] [id number] [place] [address]- 3201 Oct, [facility] [address] [id number] [place] [address]- 6497 Oct, [facility] [place] [facility] [address] [id number] [place] [address]- 2598 Oct, [facility] [place] [facility] [address] [id number] [place] [address]- 8180 Oct, [facility] [place] [facility] [address] [id number] [place] [address]- 6263 Oct, [facility] [address] [id number] [place] [address]- 6083 Sep, [facility] [place] [facility] [address] [id number] [place] [address]- 4834 Sep, [facility] [place] [facility] [address] [id number] [place] [address]- 8162 Sep, [facility] [place] [facility] [address] [id number] [place] [address]- 4871 Sep, [facility] [place] [facility] [address] [id number] [place] [address]- 2914 Sep, [facility] [place] [facility] [address] [id number] [place] [address]- 8173 Sep, [facility] [place] [facility] [address] [id number], [place] [address]- 3928 Sep, [facility] [place] [facility] [address] [id number], [place] [address]- 2119 Sep, [facility] [place] [facility] [address] [id number] [place] [address]- 5945 August, [facility] [place] [facility] [address] [id number], [place] [address]- 8538 August, [facility] [place] [facility] [address] [id number] [place] [address]- 5388 August, [facility] [place] [facility] [address] [id number] [place] [address]- 8104 August, [facility] [address] [id number] [place] [address]- 7753 August, [facility] [address] [id number] [place] 3349 Jul, [facility] [address] [id number] [place] [address]- 3761 Jul, [facility] [address] [id number] [place] [address]- 2925 Jul, [facility] [address] [id number] [place] [address]- 5237 Jul, [facility] [address] [id number] [place] [address]- 8693 Jul, [facility] [address] [id number] [place] [address]- 3313 Jun, [facility] [address] [id number] [place] [address] 18 Jun, 2012 [facility] [address] [id number] [place] [address] 15 Jun, [address] [facility] [address] [id number] [place] [address] 14 Jun, 2012 [facility] [address] [id number] [place] [address] Jun, [facility] [place] [facility] [address] [id number] [place] [address] Jun, [facility] [place] [facility] [address] [id number] [place] [address] Jun, [facility] [place] [facility] [address] [id number] [place] [address] Jun, [facility] [address] [id number] [place] [address] Jun, [facility] [address] [id number] [place] [address] May, [facility] [address] [id number] [place] [address] May, [facility] [address] [id number] [place] [address] May, [facility] [address] [id number] [place] [address] May, [facility] [address] [id number] [place] [address] Apr, [facility] [address] [id number] [place] [address] Apr, [facility] [address] [id number] [place] [address] Apr, [facility] [address] [id number] [place] [address] Apr, [facility] [address] [id number] [place] [address] Apr, [facility] [address] [id number] [place] [address] Apr, [facility] [address] [id number] [place] [address] Apr, [facility] [address] [id number] [place] [address] Mar, [facility] [address] [place] [id number] Mar, [facility] [address] [id number] [place] [address] Mar, [facility] [address] [id number] [place] [address] Mar, [facility] [address] [id number] [place] [address] Mar, [facility] [place] [facility] [address] [id number] [place] [address] Mar, [facility] [place] [facility] [address] [id number] [place] [address] Mar, [facility] [place] [facility] [address] [facility] [id number] [place] [address] Mar, [facility] [place] [facility] [address] [id number] [place] [address] Mar, [facility] [place] [facility] [address] [id number] [place] [address]- [address] Mar, [facility] [place] [facility] [address] [id number] [place] [address] Mar, [facility] [place] [facility] [address] [facility] [id number] [place] [address] Mar, [facility] [place] [facility] [address] [id number] [place] [address] Mar, [facility] [place] [facility] [address] [id number] [place] [address] Mar, [facility] [place] [facility] [address] [id number] [place] [address] Mar, [facility] [place] [facility] [address] [id number] [address] Mar, [facility] [place] [facility] [address] [id number] [address] Mar, [facility] [place] [facility] [address] [id number] [place] [address] Feb, [facility] [place] [facility] [address] [id number] [place] [address] Feb, [facility] [place] [facility] [address] [facility] [id number] [place] [address] Feb, [facility] [place] [facility] [address] [id number] [place] [address] Feb, [facility] [place] [facility] [address] [id number] [place] [address] Feb, [facility] [place] [facility] [address] [id number] [place] [address] 1579 Feb, [facility] [place] [facility] [address] [id number] [place] [address]- [address]85 Feb, [facility] [place] [facility] [address] [id number] [place] [address] Feb, [facility] [place] [facility] [address] [id number] [place] [address]- 8733 Feb, [facility] [place] [facility] [address] [id number] [place] [address] Feb, [facility] [place] [facility] [address] [id number] [place] [address]- 132[address] Feb, [facility] [place] [facility] [address] [id number] [place] [address] Feb, [facility] [place] [facility] [address] [id number] [place] [address]- 1569 Feb, [facility] [place] [facility] [address] [facility] [id number] [place] [address] Feb, [facility] [place] [facility] [address] [id number] [place] [address] 7483 Feb, [facility] [place] [facility] [address] [id number] [place] [address]- 8867 Feb, [facility] [place] [facility] [address] [id number] [place] [address]30 Jan, [facility] [place] [facility] [address] [id number] [place] [address]- [address]70 Jan, [facility] [place] [facility] [address] [id number] [place] [address]- 1859 Jan, [facility] [place] [facility] [address] [id number] [place] [address]- 1718 Jan, 2011 [facility] [place] [facility] [address] [id number] [place] [address]- [address]246 Jan, [facility] [place] [facility] [address] [id number] [place] [address]- 3190 Jan, [facility] [place] [facility] [address] [id number] [place] [address]- 5518 Jan, [facility] [place] [facility] [address] [id number] [place] [address]- 4099 Jan, [facility] [place] [facility] [address] [id number] [place] [address]- 0628 Jan, [facility] [place] [facility] [address] [id number] [place] [address]- 8399 Jan, [facility] [place] [facility] [address] [id number] [place] [address]- 0468 Jan, [facility] [place] [facility] [address] [id number] [place] [address]- 5206 Jan, [facility] [place] [facility] [address] [id number], [place] [address] Jan, [facility] [place] [facility] [address] [id number] [place] [address]- 4304 Jan, [facility] [place] [facility] [address] [id number] [address]- [address] Jan, [facility] [place] [facility] [address] [id number] [place] [address]- 1350 Jan, [facility] [place] [facility] [address] [id number] [place] [address]- 484[address] Jan, [facility] [place] [facility] [address] [id number], [place] [address]- [address] Dec, [facility] [place] [facility] [address] [id number], [place] [address]- [address] 20 Dec, 2011 [facility] [place] [facility] [address] [id number] [place] [address] 2546 18 Dec, 2011 [facility] [place] [facility] [address] [id number] [place] [address] 2546 18 Dec, 2011 [facility] [place] [facility] [address] [id number] [place] [address] 2546 10 Dec, 2011 [facility] [place] [facility] [address] [id number] [place] [place] [id number] 10 Dec, 2011 [facility] [place] [facility] [address] [id number] [place] [address] 2546 10 Dec, 2011 [facility] [place] [facility] [address] [id number] [place] [address] 07 Dec, 2011 [facility] [place] [facility] [address] [id number] [place] [address] 8520 30 Nov, 2011 [facility] [place] [facility] [address] [id number] [place] [address] 9653 Nov, [facility] [place] [facility] [address] [id number] [place] [address] Nov, [facility] [place] [facility] [address] [id number] [place] [address]40 Nov, [facility] [place] [facility] [address] [id number] [place] [address] 2548 Nov, [facility] [place] [facility] [address] [id number] [place] [address] 2540 Nov, [facility] [place] [facility] [address] [id number] [place] [address] 254 Oct, [facility] [place] [facility] [address] [id number] [place] [address]48 Oct, [facility] [place] [facility] [address] [id number] [place] [address] 2545 Oct, [facility] [place] [facility] [address] [id number] [place] [address] 69[address] Oct, [facility] [place] [facility] [address] [id number] [place] [address] 3875 Oct, [facility] [place] [facility] [address] [id number] [place] [address]- 7626 Oct, [facility] [address] [id number] [place] [address] Oct, [facility] [place] [facility] [address] [id number] [place] [address] Sep, [facility] [place] [facility] [address] [id number] [place] [address] 7058 Sep, [facility] [place] [facility] [address] [id number] [place] [address]- [address] Sep, [facility] [place] [facility] [address] [id number] [place] [address]- 8427 Sep, [facility] [address] [id number] [place] [address] 0170 Sep, [facility] [place] [facility] [address] [id number] [place] [address] 8305 15 Sep, 2011 [facility] [address] [id number] [place] [address] 4715 14 Sep, 2011 [facility] [place] [facility] [address] [id number] [place] [address]- 4368 Sep, [facility] [place] [facility] [address] [id number] [place] [address]- 9756 05 Sep, 2011 [facility] [place] [facility] [address] [id number] [place] [address] 04 Sep, 2011 [facility] [place] [facility] [address] [id number] [place] [address]- 0981 August, [facility] [place] [facility] [address] [id number] [place] [address] 6074 August, [facility] [address] [id number] [place] [address] 3582 August, [facility] [place] [facility] [address] [id number] [place] [address] August, [facility] [place] [facility] [address] [id number] [place] [address] 6375 August, [facility] [place] [facility] [address] [id number] [place] [address] 2054 Jul, [facility] [place] [facility] [address] [id number] [place] [address]- 0492 Jul, [facility] [place] [facility] [address] [id number] [place] [address] 7081 Jul, [facility] [place] [facility] [address] [id number] [place] [address]- 490[address] Jul, [facility] [place] [facility] [address] [id number] [place] [address] 4797 Jul, [facility] [place] [facility] [address] [id number] [place] [address]- 6006 Jul, [facility] [place] [facility] [address] [id number] [place] [address] 4496 Jul, [facility] [place] [facility] [address] [id number] [place] [address] 3233 Jun, [facility] [place] [facility] [address] [id number] [place] [address] 3728 Jun, [facility] [place] [facility] [address] [id number] [place] [address]- 5175 Jun, [facility] [place] [facility] [address] [id number] [place] [address]- 4367 Jun, [facility] [place] [facility] [address] [id number] [place] [address]- 2928 Jun, [facility] [place] [facility] [address] [id number] [place] [address]- 1683 May, [facility] [place] [facility] [address] [id number] [place] [address]- 7850 May, [facility] [place] [facility] [address] [id number] [place] [address]- 6366 May, [facility] [place] [facility] [address] [id number] [place] [address]- 1286 May, [facility] [place] [facility] [address] [id number] [place] [address], [place] [address]- 6445 May, [facility] [place] [facility] [address] [id number] [place] [address], [place] [address]- 8882 May, [facility] [place] [facility] [address] [facility] [id number] [place] [address] 6091 Apr, [facility] [place] [facility] [id number] [place] [address] Mar, [facility] [place] [facility] [address] [id number] [place] [address]- 7095 Feb, [facility] [place] [facility] [id number] [place] [address] 3097 Feb, [facility] [place] [facility] [address] [facility] [id number] [place] [address] 9638 Feb, [facility] [place] [facility] [address] [facility] [id number] [place] [address] 2718 Feb, [facility] [place] [facility] [address] [id number] [place] [address]- 0100 Jan, [facility] [place] [facility] [address] [id number] [place] [address] 1941 Jan, [facility] [place] [facility] [address] [id number] [place] [address]- 7090 Jan, [facility] [place] [facility] [address] [facility] [id number] [place] [address]- 6907 Jan, [facility] [address] [id number] [place] [address]- 0058 14 Jan, 2011 [facility] [place] [facility] [address] [id number] [place] [address]- 4086 19 Dec, 2010 [facility] [place] [facility] [address] [id number] [place] [address]- 6814 20 Oct, 2010 [facility] [place] [facility] [address] [id number] [place] [address]- 6518 August, [facility] [place] [facility] [address] [id number] [place] [address]- 3812 29 Mar, 2010 [facility] [place] [facility] [address] [id number] [place] [address]- 6190 27 Mar, 2010 [facility] [place] [facility] [address] [id number] [place] [address]- 3416 16 Mar, 2010 [facility] [place] [facility] [address] [id number] [address]- 1397 15 Mar, 2010 [facility] [place] [facility] [address] [id number] [place] [address]- 4118 15 Mar, 2010 [facility] [place] [facility] [address] [facility] [id number], [place] [address] 2703 08 Mar, 2010 [facility] [place] [facility] [address] [id number], [place] [address]- 0965 03 Mar, 2010 [facility] [place] [facility] [address] [id number], [place] [address] 24 Feb, 2010 [facility] [place] [facility] [address] [id number] [place] [address]- 3777 24 Feb, 2010 [facility] [place] [facility] [address] [id number], [place] [address] 6024 15 Feb, 2010 [facility] [place] [facility] [address] [id number] [address] 19 Jan, 2010 [facility] [place] [facility] [address] [id number], [place] [address]- 5334 Jan, [facility] [place] [facility] [address] [id number] [place] [address]- 7342 18 Jan, 2010 [facility] [place] [facility] [address] [id number], [place] [address]- 9652 Nov, [facility] [place] [facility] [address] [facility] [id number] [place] [address]- 3945 14 Sep, 2009 [facility] [place] [facility] [address] [id number], [place] [address] 5651 August, [facility] [place] [facility] [address] [id number] [place] [address], [place] [address]- 3101 30 Mar, 2009 [facility] [place] [facility] [address] [facility] [id number] [place] [address]- 1968 Mar, [facility] [place] [facility] [address] [facility] [id number], [place] [address]- 9[address] 17 Feb, 2009 [facility] [place] [facility] [address] [facility] [id number], [place] [address]- 3090 10 Feb, 2009 [facility] [place] [facility] [address] [facility] [id number], [place] [address]- 6187 10 Feb, 2009 [facility] [place] [facility] [address] [facility] [id number], [place] [address]- 9371 10 Feb, 2009 [facility] [place] [facility] [address] [facility] [id number], [place] [address]- 3[address] 06 Feb, 2009 [facility] [place] [facility] [address] [facility] [id number], [place] [address]- 6517 27 Jan, 2009 [facility] [place] [facility] [address] [facility] [id number], [place] [address]- 5030 26 Jan, 2009 [facility] [place] [facility] [address] [facility] [id number] [address] 9441 20 Jan, 2009 [facility] [place] [facility] [address] [facility] [id number] [address]- 1105 19 Jan, 2009 [facility] [place] [facility] [address] [facility] [id number] [place] [address]- 4928 Nov, [facility] [address] [facility] [id number], [place] [address]- 9125 Sep, [facility] [address] [facility] [id number], [place] [address] 0897 August, [place] [address] [facility] [id number] [address] 77[address] Jul, [facility] [address] [facility] [id number], [place] [address]- 2379 May, IMMUNIZATIONS No Known Immunizations SOCIAL HISTORY Never Assessed REASON FOR VISIT Enrolled in [facility] PLAN OF CARE VITAL SIGNS MEDICATIONS Medication Instructions Dosage Frequency Start Date End Date Duration Status Zofran ODT 4 mg Orally every 4 hrs 1 tablet on the tongue and allow to dissolve 4h Jul, 1 days Active RESULTS No Results PROCEDURES No [...] Knee Surgery 07/16/17 Hospitalization History [facility] [place]- left hand/wrist swelling 10/09/2017
[2018-01-01 12:37] LABS: BACTERIA,URINE NEGATIVE /HPF; SQUAMOUS EPITHELIAL CELL,UR 0-2 /HPF
--- OUTSIDE RECORDS SUMMARY | 2018-01-01 12:37 | XMS REPORT ---
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 Active 82173212 Problem Colon polyp K63.5 Active 54845412 Problem Bilateral low back pain without sciatica M54.5 Active 710324514 Problem Screening breast examination Z12.39 Active 998995769 Problem Postmenopausal Z78.0 Active 10686957 Problem Osteopenia M85.80 Active 771603543 Problem Cigarette nicotine dependence without complication F17.210 Active 82240086 Problem Type 2 diabetes mellitus with diabetic peripheral angiopathy without gangrene E11.51 Active 705790479 Problem Vascular dementia without behavioral disturbance F01.50 Active [id number] Problem Unspecified atherosclerosis of [place] arteries of extremities, unspecified extremity I70.209 Active 116776528307173 Problem Arthritis M19.90 Active 2849360 Problem Chronic atrial fibrillation I48.2 Active 131121067 Problem Chronic obstructive pulmonary disease with acute lower respiratory infection J44.0 Active 873661480 Problem Other chronic pancreatitis K86.1 Active 544063710 Problem Stress incontinence of urine N39.3 Active 98759690 Problem Controlled type 2 diabetes mellitus without complication, without long -term current use of insulin E11.9 Active 483568049 Problem Unspecified psychosis F29 Active 56385629 Problem Xeroderma Q80.9 Active 46611597 Problem COPD (chronic obstructive pulmonary disease) J44.9 Active 59838703 Problem Dementia without behavioral disturbance, unspecified dementia type F03.90 Active 07018239 Problem Gastroparesis K31.84 Active 805154025 Problem Type 2 diabetes mellitus with diabetic neuropathy, without long-term current use of insulin E11.40 Active 71019850 Problem Osteoporosis M81.0 Active 62494103 Problem Atherosclerosis of [place] artery of both lower extremities with intermittent claudication I70.213 Active 873269057636984 Problem Hyperlipidemia E78.5 Active 49901762 Problem Diabetic polyneuropathy associated with type 2 diabetes mellitus E11.42 Active 61945324 Problem Essential tremor G25.0 Active 04015108 Problem Atherosclerotic heart disease of [place]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 I25.118 Active 9187843037970 Problem Generalized anxiety disorder F41.1 Active 256205210 Problem Gastroesophageal reflux disease, esophagitis presence not specified K21.9 Active 746573466 Problem Coronary artery disease involving [place] coronary artery of [place] heart with other form of angina pectoris I25.118 Active 4288592699450 Problem Postconcussion syndrome F07.81 Active 94937344 Problem Chronic pain syndrome G89.4 Active 698927221 Problem Migraine without aura and without status migrainosus, not intractable G43.009 Active 283677203 Problem Paroxysmal atrial fibrillation I48.0 Active 276664717 Problem Migraine without aura and with status migrainosus, not intractable G43.001 Active 921769481 Problem Cervicalgia M54.2 Active 9087688246399 Problem Acute exacerbation of chronic obstructive pulmonary disease (COPD) J44.1 Active 991709217 Problem Major depressive disorder, recurrent episode, moderate F33.1 Active 138281731 Problem Crohn''s disease without complication, unspecified gastrointestinal tract location K50.90 Active 79794131 Problem Chronic fatigue R53.82 Active 36152977 Problem Bipolar affective disorder, currently depressed, moderate F31.32 Active 989150667 ALLERGIES No Information ENCOUNTERS Encounter Location Date Diagnosis [facility] [id number] [address] Nov, [facility] [address] [address] Nov, [facility] [id number] [address] Oct, [facility] [id number] [address] Oct, [facility] [address] [address] 16 Oct, 2017 [facility] [address] [place] [address] 12165- 6325 Oct, Edema of both legs R60.0 [facility] [id number] [place] [address] 76521- 0624 Oct, [facility] [id number] [place] [address] 15860- 6376 Sep, [facility] [id number] [place] [address] 93189- 1007 Sep, [facility] [id number] [place] [address] 66959- 8699 Sep, [facility] [id number] [place] [address] 11313- 5243 Sep, Encounter for well woman exam with routine gynecological exam Z01.419 ; Screening for STDs (sexually transmitted diseases) Z11.3 ; Screening breast examination Z12.31 and Overweight (BMI 25.0-29.9) E66.3 [facility] [id number] [place] [address] 70938- 0834 Sep, [facility] [address] [address] 5[address] Sep, [facility] [address] [address] 0438 Sep, [facility] [address] [address] 0069 August, [facility] [address] [place] [address] 34898- 2295 August, [facility] [address] [address]269 August, Type 2 diabetes mellitus with diabetic neuropathy, without long-term current use of insulin E11.40 and Sprain of right ankle, unspecified ligament, initial encounter S93.401A [facility] [id number] [address] August, [facility] [id number] [place] [address] 03018- 1242 August, [facility] [id number] [place] [address] 42660- 9872 August, [facility] [id number] [place] [address] 99128- 1526 August, Gastroesophageal reflux disease, esophagitis presence not specified K21.9 [facility] [id number] [place] [address] 30198- 1826 August, [facility] [id number] [place] [address] 81356- 6960 August, [facility] [id number] [place] [address] 03461- 7446 August, [facility] [id number] [place] [address] 46044- 2811 August, Type 2 diabetes mellitus with diabetic neuropathy, without long-term current use of insulin E11.40 and Elevated liver enzymes R74.8 [facility] [address] [address] 1356 Jul, [facility] [id number] [place] [address] 24424- 1949 Jul, Cough R05 [facility] [address] [address] 3731 Jul, [facility] [id number] [place] [address] 58662- 3217 Jul, [facility] [id number] [place] [address] 04325- 6589 Jul, Bipolar affective disorder, currently depressed, moderate F31.32 ; Vascular dementia without behavioral disturbance F01.50 and Generalized anxiety disorder F41.1 [facility] [id number] [place] [address] 90603- 1031 Jul, [facility] [address] 69229- 0832 Jul, Type 2 diabetes mellitus with diabetic neuropathy, without long-term current use of insulin E11.40 and Elevated liver enzymes R74.8 [facility] [address] 53125- 2732 Jul, [facility] [address] 39727- 7934 Jul, [place] [address] 22309- 7095 Jul, [facility] [id number] [place] [address] 63388- 7333 Jul, Post-menopausal Z78.0 [place] [facility] [address] 91926- 4541 Jul, Stress incontinence of urine N39.3 [facility] [id number] [place] [address] 77580- 0705 Jul, [facility] [id number] [place] [address] 50411- 1675 Jul, [facility] [id number] [place] [address] 75944- 2961 Jul, Stress incontinence of urine N39.3 and Cough R05 [facility] [id number] [place] [address] 29487- 8196 Jul, [facility] [id number] [place] [address] 04657- 1941 Jul, [facility] [id number] [place] [address] 23760- 5716 Jul, [facility] [id number] [place] [address] 37633- 5161 Jul, Gastroesophageal reflux disease, esophagitis presence not specified K21.9 [facility] [address] [place] [address] 64597- 9800 29 Jun, 2017 Diabetic polyneuropathy associated with type 2 diabetes mellitus E11.42 [facility] [id number] [place] [address] Jun, Diabetic polyneuropathy associated with type 2 diabetes mellitus E11.42 ; Coronary artery disease involving [place] coronary artery of [place] heart with other form of angina pectoris I25.118 and Paroxysmal atrial fibrillation I48.0 [facility] [id number] [place] [address] 92531- 8980 Jun, [facility] [address] 78983- 7208 Jun, [facility] [id number] [place] [address] 24635- 0853 Jun, Gastroenteritis K52.9 [facility] [id number] [place] [address] 04577- 7305 Jun, Gastroenteritis K52.9 [facility] [id number] [place] [address] 07778- 2324 Jun, [facility] [id number] [place] [address] 45539- 7232 Jun, [facility] [id number] [place] [address] 48777- 1321 Jun, Sprain of right ankle, unspecified ligament, initial encounter S93.401A ; Type 2 diabetes mellitus with diabetic neuropathy, without long-term current use of insulin E11.40 ; Atherosclerosis of [place] artery of both lower extremities with intermittent claudication I70.213 ; Atherosclerotic heart disease of [place]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 I25.118 ; Chronic atrial fibrillation I48.2 and Crohn''s disease without complication, unspecified gastrointestinal tract location K50.90 [facility] [address] [address] 17 Jun, 2017 Chronic obstructive pulmonary disease with acute lower respiratory infection J44.0 and Cough R05 [facility] [id number] [place] [address] 54159- 8450 Jun, [facility] [id number] [place] [address] 16284- 2882 Jun, Coughing R05 ; Unspecified atherosclerosis of [place] arteries of extremities, unspecified extremity I70.209 ; Type 2 diabetes mellitus with diabetic peripheral angiopathy without gangrene E11.51 ; Crohn''s disease without complication, unspecified gastrointestinal tract location K50.90 ; Other chronic pancreatitis K86.1 and Chronic atrial fibrillation I48.2 [facility] [id number] [place] [address] 60848 -0423 Jun, [facility] [id number] [place] [address] 41197- 5161 Jun, Bipolar affective disorder, currently depressed, moderate F31.32 ; Vascular dementia without behavioral disturbance F01.50 and Generalized anxiety disorder F41.1 [place] [id number] [place] [address] 66421- 5313 May, Generalized anxiety disorder F41.1 [place] [id number] [place] [address] 87748- 7441 May, [facility] [id number] [place] [address] 55519- 8156 May, [facility] [id number] [place] [address] 52856- 1304 May, Coughing R05 [facility] [id number] [place] [address] 62015- 4648 May, [facility] [id number] [place] [address] 88829- 9819 May, Bipolar affective disorder, currently depressed, moderate F31.32 ; Vascular dementia without behavioral disturbance F01.50 and Generalized anxiety disorder F41.1 [place] [id number] [place] [address] 96849- 8772 Apr, Generalized anxiety disorder F41.1 [facility] [id number] [place] [address] 07942- 0675 Apr, [facility] [id number] [place] [address] 90204- 3710 Apr, Vascular dementia without behavioral disturbance F01.50 ; Generalized anxiety disorder F41.1 and Bipolar affective disorder, currently depressed, moderate F31.32 [facility] [id number] [place] [address] 24574- 0367 Apr, Generalized anxiety disorder F41.1 [facility] [id number] [place] [address] 24566 -4734 Apr, Cough R05 and Acute exacerbation of chronic obstructive pulmonary disease (COPD) J44.1 [place] [id number] [place] [address] 81235- 8630 Apr, [facility] [id number] [place] [address] 59006 -8455 Mar, Cough R05 and Cigarette nicotine dependence without complication F17.210 [facility] [id number] [place] [address] 81030- 7939 Mar, [facility] [id number] [place] [address] 13385- 0174 Feb, Generalized anxiety disorder F41.1 ; Major depressive disorder, recurrent episode, moderate F33.1 ; Vascular dementia without behavioral disturbance F01.50 and Unspecified psychosis F29 [facility] [id number] [place] [address] 12204- 7892 Feb, [facility] [id number] [place] [address] 98978- 7519 Feb, [facility] [id number] [place] [address] 28777- 5619 Feb, Generalized anxiety disorder F41.1 [facility] [id number] [place] [address] 43323- 5977 Feb, Generalized anxiety disorder F41.1 [place] [address] 14495- 8209 Feb, Dizziness R42 ; Chronic fatigue R53.82 ; Postconcussion syndrome F07.81 ; Fall, initial encounter W19.XXXA and Disorientation R41.0 [place] [address] 58141- 9758 Feb, Postconcussion syndrome F07.81 ; Injury of head, initial encounter S09.90XA ; Fall, initial encounter W19.XXXA ; Disorientation R41.0 and Acute cystitis with hematuria N30.01 [place] [facility] [id number] [place] [address] 29298- 9236 Jan, Gastroesophageal reflux disease, esophagitis presence not specified K21.9 ; Post-menopausal Z78.0 and Migraine without aura and without status migrainosus, not intractable G43.009 [facility] [id number] [place] [address] 09827- 7588 Jan, [place] [address] 96653- 7954 Jan, Generalized anxiety disorder F41.1 ; Major depressive disorder, recurrent episode, moderate F33.1 ; Vascular dementia without behavioral disturbance F01.50 and Unspecified psychosis F29 [facility] [facility] [id number] [place] [address] 36973- 0544 Jan, Pneumonia of left lower lobe due to infectious organism J18.1 [facility] [id number] [place] [address] 50094- 0954 Jan, Migraine without aura and with status migrainosus, not intractable G43.001 [facility] [id number] [place] [address] 52825 -1652 Jan, Migraine without aura and without status migrainosus, not intractable G43.009 [facility] [address] [address]- 1445 Dec, Hematoma T14.8 [facility] [id number] [place] [address] 16807- 3873 Dec, [facility] [address] [place] [address] 12599 -9175 Nov, Fatigue, unspecified type R53.83 [facility] [id number] [place] [address] 96239- 7602 Nov, Scabies B86 and Coronary artery disease involving [place] coronary artery of [place] heart with other form of angina pectoris I25.118 [facility] [id number] [place] [address] 13375- 6206 Nov, [facility] [id number] [place] [address] 94126- 4344 Nov, [facility] [id number] [place] [address] 12562- 1068 Oct, [facility] [id number] [place] [address] 63374- 6343 Oct, Generalized anxiety disorder F41.1 and Major depressive disorder, recurrent episode, moderate F33.1 [facility] [address] [place] [address] 36559- 8826 Oct, Cramp of both lower extremities R25.2 [facility] [id number] [place] [address] 17080- 2887 Oct, Leg cramps R25.2 [facility] [id number] [place] [address] 58423- 3349 Oct, Chronic pain syndrome G89.4 [facility] [id number] [place] [address] 54835- 4509 Oct, [facility] [id number] [place] [address] 96039- 8014 Oct, [facility] [id number] [place] [address] 08974- 8624 11 Oct, 2016 Routine gynecological examination Z01.419 and Screening for breast cancer Z12.31 [facility] [id number] [place] [address] 99475- 4759 28 Sep, 2016 Diarrhea R19.7 [place] [id number] [place] [address] 43215- 3786 Sep, Back pain M54.9 [facility] [id number] [place] [address] 98696- 6318 Sep, [place] [place] [id number] [place] [address] 21942- 0915 Sep, [facility] [id number] [place] [address] 47525 -2682 August, Xeroderma Q80.9 [place] [facility] [address] 50540- 6201 August, Dementia without behavioral disturbance, unspecified dementia type F03.90 [facility] [id number] [place] [address] 30689- 8619 August, Chronic pain syndrome G89.4 [facility] [id number] [place] [address] 86191- 0894 August, [place] [id number] [place] [address] 75144- 5401 August, Hyperlipidemia E78.5 ; Other fatigue R53.83 and Other specified hypotension I95.89 [facility] [id number] [place] [address] 94239 -4919 August, Dysuria R30.0 ; Other fatigue R53.83 and Other specified hypotension I95.89 [place] [id number] [place] [address] 30272- 9395 August, [place] [id number] [place] [address] 94908- 0493 Jul, Pain in left knee M25.562 and Gastroenteritis K52.9 [place] [address] 90878- 7050 Jul, [place] [address] 16842- 5507 Jul, Diarrhea R19.7 [facility] [address] 08163 -2626 Jul, Spider bite, accidental or unintentional, initial encounter T63.301A [place] [address] 83508- 4334 Jul, Primary osteoarthritis of right knee M17.11 and Arthritis M19.90 [place] [address] 65236- 7860 Jul, Generalized anxiety disorder F41.1 and Major depressive disorder, recurrent episode, moderate F33.1 [place] [address] 21712- 4655 07 Jul, 2016 Type 2 diabetes mellitus with diabetic polyneuropathy E11.42 and Temporal headache R51 [place] [address] 15195- 1877 Jul, Back pain M54.9 [place] [address] 77739- 8274 Jul, [place] [address] 91170- 0694 Jul, [place] [id number] [place] [address] 00945- 1003 Jun, Nausea R11.0 [facility] [address] 94025 -3956 Jun, Acute suppurative otitis media of both ears without spontaneous rupture of tympanic membranes, recurrence not specified H66.003 and COPD exacerbation J44.1 [place] [address] [place] [address]- 4846 Jun, Generalized anxiety disorder F41.1 [facility] [address] 29754- 2489 16 Jun, 2016 [facility] [id number] [place] [address] 75361 -1407 Jun, [facility] [address] 91057 -2440 Jun, Shortness of breath R06.02 and COPD exacerbation J44.1 [place] [address] 62927- 2153 Jun, Eczema, unspecified type L30.9 [place] [address] 15447- 5354 Jun, [place] [address] 94749- 3670 May, [place] [address] 29361- 4591 May, Muscle cramping R25.2 [place] [address] 24146- 1382 May, [place] [id number] [place] [address] 59974- 4638 Apr, Diarrhea R19.7 [place] [id number] [place] [address] 20637- 9141 Apr, [place] [id number] [place] [address] 18254- 8987 Apr, Chronic pain syndrome G89.4 [place] [id number] [place] [address] 04095- 5064 Apr, Cramp of both lower extremities R25.2 and Vascular dementia without behavioral disturbance F01.50 [place] [address] 29095- 0005 Apr, Type 2 diabetes mellitus with diabetic polyneuropathy E11.42 and Cigarette nicotine dependence without complication F17.210 [place] [address] 77331- 7261 Mar, Generalized anxiety disorder F41.1 [place] [address] 41088- 7806 Feb, Generalized anxiety disorder F41.1 and Major depressive disorder, recurrent episode, moderate F33.1 [place] [address] 57904- 4338 Feb, [facility] [address] 77212 -7788 Feb, Dysuria R30.0 and Acute cystitis with hematuria N30.01 [place] [address] 94433- 0197 Jan, [place] [address] 63449- 1688 Jan, [place] [address] 12059- 7607 Jan, [place] [address] 50028- 0076 Jan, [facility] [address] 88019 -8676 Jan, Wasp sting, accidental or unintentional, initial encounter T63.461A [place] [address] 61125- 2801 Jan, Encounter for immunization Z23 [place] [address] [address]97- 2862 Jan, [place] [address] 64873- 2439 Jan, [place] [address] 97358- 1447 28 Dec, 2015 Generalized anxiety disorder F41.1 and Major depressive disorder, recurrent episode, moderate F33.1 [facility] [address] [id number] [place] [address] 51214- 8977 21 Dec, 2015 Routine gynecological examination Z01.419 ; Postmenopausal Z78.0 ; Screening breast examination Z12.39 ; Osteopenia M85.80 and Breast cancer screening Z12.39 [facility] [id number] [place] [address] 29012- 3397 20 Dec, 2015 [facility] [id number] [place] [address] 98772- 6256 19 Dec, 2015 [facility] [id number] [place] [address] 44427- 7104 16 Dec, 2015 [facility] [id number] [place] [address] 08158- 8794 Dec, [facility] [id number] [place] [address] 47612- 2892 14 Dec, 2015 [facility] [id number] [place] [address] 73483- 6705 Dec, [facility] [id number] [place] [address] 34963- 4681 Nov, [facility] [id number] [place] [address] 25212 -3924 Nov, Cough R05 ; Other viral agents as the cause of diseases classified elsewhere B97.89 and Acute upper respiratory infection, unspecified J06.9 [facility] [id number] [place] [address] 12856- 0972 Nov, [facility] [id number] [place] [address] 74207- 6048 Nov, [facility] [id number] [place] [address] 71089- 2695 Nov, [facility] [address] [id number] [address]- 1407 15 Nov, 2015 [facility] [id number] [place] [address] 90039- 5648 Nov, [facility] [id number] [place] [address] 34680- 5802 Oct, [facility] [id number] [place] [address] 26347- 1205 Oct, [facility] [address] [id number] [place] [address] 42023- 1607 Oct, [facility] [id number] [place] [address] 70763- 2747 Oct, Chronic pain syndrome G89.4 [facility] [address] [id number] [place] [address] 49853- 7733 Sep, Generalized anxiety disorder F41.1 and Major depressive disorder, recurrent episode, moderate F33.1 [facility] [id number] [place] [address] 25396- 8172 Sep, [facility] [id number] [place] [address] 98017- 7476 Sep, [facility] [address] [id number] [place] [address] 88461- 1783 Sep, Generalized anxiety disorder F41.1 [facility] [id number] [place] [address] 80902- 2576 Sep, Cramp of both lower extremities R25.2 and Cervicalgia M54.2 [facility] [id number] [place] [address] 03897- 5944 Sep, Generalized anxiety disorder F41.1 [facility] [address] [address] [id number] [place] [address] 29711- 1985 Sep, [facility] [id number] [place] [address] 62148 -1388 August, Rash R21 ; Itching L29.9 and Allergic response, subsequent encounter T78.40XD [place] [address] [id number] [place] [address] 72932- 5361 August, Primary insomnia F51.01 [facility] [address] [id number] [place] [address] 16547 -9115 August, Rash R21 ; Itching L29.9 and Allergic response, initial encounter T78.40XA [place] [address] [id number] [place] [address] 45447- 9978 August, [place] [address] [id number] [place] [address] 98652- 7807 August, Cramp of both lower extremities R25.2 [place] [address] [id number] [place] [address] 62039- 4914 August, Back pain M54.9 [place] [address] [id number] [place] [address] 06268- 5757 August, [place] [address] [id number] [place] [address] 05665- 2700 August, [facility] [address] [id number] [place] [address] 98845 -6112 August, Cramp of both lower extremities R25.2 [place] [address] [place] [id number] [place] [address] 20912- 3616 August, [place] [address] [id number] [place] [address] 26232- 1180 August, Syncope R55 ; Paroxysmal atrial fibrillation I48.0 ; Dementia without behavioral disturbance, unspecified dementia type F03.90 and Chronic pain syndrome G89.4 [place] [address] [id number] [place] [address] 69796- 7912 August, Type 2 diabetes mellitus with diabetic polyneuropathy E11.42 and Syncope R55 [place] [address] [id number] [place] [address] 24101- 7661 Jul, [facility] [address] [facility] [id number] [address]- 9560 Jul, [facility] [address] [facility] [id number] [address]- 9114 Jul, [facility] [address] [facility] [id number] [address]- 4036 Jul, [facility] [address] [facility] [id number] [address]- 0532 Jul, [facility] [address] [facility] [id number] [address]- 6148 Jul, UTI (urinary tract infection) N39.0 [facility] [address] [address]- 3195 Jul, [facility] [address] [address]- 4329 Jul, Major depressive disorder, recurrent episode, moderate F33.1 and Generalized anxiety disorder F41.1 [facility] [address] [address]- 1641 Jul, Generalized anxiety disorder F41.1 [facility] [address] [address]- 7754 Jul, Diarrhea R19.7 [facility] [address] [address]- 8094 Jul, [facility] [address] [place] [id number] [address]- 3461 Jun, [facility] [address] [place] [id number] [address]- 1922 Jun, Eczema L30.9 [facility] [address] [facility] [id number] [address]- 2008 Jun, [facility] [address] [place] [id number] [address]- 8301 17 Jun, 2015 COPD (chronic obstructive pulmonary disease) J44.9 [facility] [address] [address]- 4103 Jun, [facility] [address] [address]- 6670 Jun, Major depressive disorder, recurrent episode, moderate F33.1 and Generalized anxiety disorder F41.1 [facility] [address] [address]- 1096 May, [facility] [address] [address]- 7755 May, UTI (urinary tract infection) N39.0 [facility] [address] [address]- 8567 May, [facility] [address] [address]- 7520 May, [facility] [address] [address]- 9703 May, [facility] [address] [address]- 1727 May, [facility] [address] [address]- 4505 Apr, Major depressive disorder, recurrent episode, moderate F33.1 and Generalized anxiety disorder F41.1 [facility] [address] [address]- 6786 Apr, COPD (chronic obstructive pulmonary disease) J44.9 [facility] [address] [address]- 5376 Apr, [facility] [address] [address]- 2155 Apr, Atrial flutter I48.92 [facility] [address] [address]- 7036 Apr, [facility] [address] [address]- 8263 Apr, [facility] [address] [id number] [place] [address] 46720- 7558 Mar, [facility] [address] [place] [id number] [place] [address] 66208- 1375 Mar, [facility] [address] [place] [id number] [place] [address] 53404- 1358 Mar, [facility] [address] [id number] [place] [address] 04397- 4899 Mar, Hyperlipidemia E78.5 ; Type 2 diabetes mellitus with diabetic polyneuropathy E11.42 ; Major depressive disorder, recurrent episode, moderate F33.1 and Chronic pain syndrome G89.4 [facility] [address] [id number] [place] [address] 65424- 4477 Mar, [facility] [address] [id number] [place] [address] 79543- 6295 Mar, [facility] [address] [id number] [place] [address] 42596- 4301 Mar, [facility] [address] [place] [id number] [place] [address] 93889- 7341 Mar, [facility] [id number] [place] [address] 32989- 6107 Feb, COPD (chronic obstructive pulmonary disease) J44.9 and Back pain M54.9 [facility] [address] [address]- 5512 Feb, [facility] [address] [id number] [place] [address] 04767- 9551 Feb, [facility] [address] [address]- 9951 Feb, [facility] [address] [place] [id number] [place] [address] 71297- 2439 Feb, [facility] [address] [address]- 4299 Feb, [facility] [address] [place] [id number] [place] [address] 24702- 2658 Feb, [facility] [id number] [place] [address] 45057- 6180 Feb, [facility] [address] [place] [id number] [place] [address] 89131- 6272 Feb, [facility] [id number] [place] [address] 14533- 6527 Feb, Diabetes E11.9 ; Back pain M54.9 and COPD (chronic obstructive pulmonary disease) J44.9 [facility] [address] [place] [id number] [place] [address] 79569- 7610 Jan, [facility] [address] [place] [id number] [place] [address] 68824- 8873 Jan, Major depression, recurrent F33.9 and Generalized anxiety disorder F41.1 [facility] [address] [id number] [place] [address] 45204- 9910 Jan, Chronic pain G89.29 [facility] [id number] [place] [address] 92851- 9866 Jan, [facility] [address] [id number] [place] [address] 38191- 9715 Jan, [facility] [id number] [place] [address] 79439- 7117 Jan, [facility] [id number] [place] [address] 31760- 9122 Jan, [facility] [id number] [place] [address] 21033- 8034 Jan, Nicotine dependence F17.200 [facility] [address] [place] [id number] [place] [address] 04550- 2271 Jan, Nicotine dependence F17.200 and Back pain M54.9 [facility] [address] [id number] [place] [address] 84772- 3727 Jan, [facility] [id number] [place] [address] 08825- 9890 28 Dec, 2014 [facility] [id number] [place] [address] 97912- 1162 25 Dec, 2014 Anxiety, generalized 300.02 and Major depression, recurrent 296.30 [facility] [address] [id number] [place] [address] 43877- 5264 24 Dec, 2014 [facility] [address] 88066- 4655 21 Dec, 2014 [facility] [id number] [place] [address] 46328- 9856 17 Dec, 2014 [facility] [address] [id number] [place] [address] 89607- 9421 15 Dec, 2014 [facility] [id number] [place] [address] 45671- 3680 14 Dec, 2014 [facility] [id number] [place] [address] 06932- 4543 11 Dec, 2014 [facility] [id number] [place] [address] 05406- 3132 10 Dec, 2014 [facility] [id number] [place] [address] 84923- 0579 08 Dec, 2014 Skin tear 879.8 [facility] [id number] [place] [address] 24323- 6017 08 Dec, 2014 Routine gynecological examination V72.31 ; Breast cancer screening V76.10 and Family history of breast cancer in first degree relative V16.3 [facility] [id number] [place] [address] 32595- 9755 03 Dec, 2014 [facility] [id number] [place] [address] 39532- 8510 Dec, [facility] [address] [address]- 8397 Nov, [facility] [id number] [place] [address] 70894- 2703 Nov, [facility] [id number] [place] [address] 29438- 7037 Nov, Poor balance 781.99 and Vascular dementia, uncomplicated 290.40 [facility] [id number] [place] [address] 08954- 3324 Nov, [facility] [id number] [place] [address] 38635- 1268 Nov, Major depression, recurrent 296.30 and Anxiety, generalized 300.02 [facility] [id number] [place] [address] 19659- 8358 Nov, [facility] [id number] [place] [address] 24399- 6259 Nov, [facility] [id number] [place] [address] 17382- 7542 Nov, [facility] [address] [address]- 8431 Nov, [facility] [address] [address]- 9560 Nov, Vascular dementia, uncomplicated 290.40 and Lumbago 724.2 [facility] [address] [address]- 7713 Nov, [facility] [id number] [address]- 6864 Nov, [facility] [address] [address]- 5337 Nov, [facility] [address] [address]- 0657 Oct, [facility] [address] [address]- 0868 Oct, [facility] [address] [address]- 5767 Oct, [facility] [address] [address]- 9034 Oct, COPD (chronic obstructive pulmonary disease) 496 and Hyperlipidemia 272.4 [facility] [address] [address]- 4141 Oct, Major depression, recurrent 296.30 and Anxiety, generalized 300.02 [facility] [id number] [address]- 6646 Oct, [facility] [address] [address]- 3158 Oct, [facility] [address] [address]- 2209 Oct, [facility] [address] [address]- 2574 Sep, Lumbago 724.2 and Anxiety state, unspecified 300.00 [facility] [address] [address]- 8408 Sep, [facility] [address] [address]- 4310 Sep, [facility] [address] [address]- 5876 August, [facility] [address] [address]- 2829 August, Major depression, recurrent 296.30 ; Anxiety, generalized 300.02 and No condition on Hickory II V71.09 [facility] [address] [address]- 8046 August, [facility] [id number] [address]- 7104 August, [facility] [place] [facility] [address] [id number] [place] [address]- 8928 29 Jul, 2014 [facility] [place] [facility] [address] [id number] [place] [address]- 8966 14 Jul, 2014 [facility] [place] [facility] [address] [id number] [place] [address]- 8251 Jul, [facility] [place] [facility] [address] [id number] [place] [address]- 1813 30 Jun, 2014 [facility] [place] [facility] [address] [id number] [place] [address]- 1814 30 Jun, 2014 [facility] [place] [facility] [address] [id number] [place] [address]- 9370 27 Jun, 2014 [facility] [place] [facility] [address] [id number] [place] [address]- 8477 27 Jun, 2014 [facility] [place] [facility] [address] [id number] [place] [address]- 0693 26 Jun, 2014 [facility] [place] [facility] [address] [id number] [place] [address]- 7587 23 Jun, 2014 [facility] [place] [facility] [address] [id number] [place] [address]- 4010 23 Jun, 2014 [facility] [place] [facility] [address] [id number] [place] [address]- 7535 17 Jun, 2014 [facility] [place] [facility] [address] [id number] [place] [address]- 8051 13 Jun, 2014 [facility] [place] [facility] [address] [id number] [place] [address]- 4261 13 Jun, 2014 [facility] [place] [facility] [address] [id number] [place] [address]- 1855 10 Jun, 2014 [facility] [place] [facility] [address] [id number] [place] [address]- 9968 10 Jun, 2014 [facility] [place] [facility] [address] [id number] [place] [address]- 9863 Jun, 2014 [facility] [place] [facility] [address] [id number] [place] [address]- 6472 Jun, 2014 [facility] [place] [facility] [address] [id number] [place] [address]- 3571 Jun, 2014 [facility] [place] [facility] [address] [id number] [place] [address]- 3518 Jun, 2014 [facility] [place] [facility] [address] [id number] [place] [address]- 8270 May, 2014 [facility] [place] [facility] [address] [id number] [place] [address]- 2434 May, 2014 [facility] [place] [facility] [address] [id number] [place] [address]- 3689 May, 2014 [facility] [place] [facility] [address] [id number] [place] [address]- 3170 May, 2014 [facility] [place] [facility] [address] [id number] [place] [address]- 7188 May, 2014 [facility] [place] [facility] [address] [id number] [place] [address]- 7564 May, 2014 [facility] [place] [facility] [address] [id number] [place] [address]- 2419 May, 2014 [facility] [place] [facility] [address] [id number] [place] [address]- 5861 May, 2014 [facility] [place] [facility] [address] [id number] [place] [address]- 5202 May, 2014 [facility] [place] [facility] [address] [id number] [place] [address]- 5036 May, 2014 [facility] [place] [facility] [address] [facility] [id number] [place] [address]- 7017 06 May, 2014 [facility] [place] [facility] [address] [id number] [place] [address]- 7014 May, [facility] [place] [facility] [address] [id number] [place] [address]- 6272 May, [facility] [place] [facility] [address] [id number] [place] [address]- 5806 May, [facility] [place] [facility] [address] [id number] [place] [address]- 4292 Apr, [facility] [place] [facility] [address] [id number] [place] [address]- 1371 Apr, [facility] [place] [facility] [address] [id number] [place] [address]- 0468 Apr, [facility] [place] [facility] [address] [id number] [place] [address]- 9259 Apr, [facility] [place] [facility] [address] [id number] [place] [address]- 8522 Apr, [facility] [place] [facility] [address] [id number] [place] [address]- 3216 Apr, [facility] [place] [facility] [address] [id number] [place] [address]- 9066 Apr, [facility] [place] [facility] [address] [id number] [place] [address]- 0188 Apr, [facility] [place] [facility] [address] [id number] [place] [address] Apr, [facility] [place] [facility] [address] [id number] [place] [address] Apr, [facility] [place] [facility] [address] [id number] [place] [address] Apr, [facility] [place] [facility] [address] [id number] [place] [address] Apr, [facility] [place] [facility] [address] [id number] [place] [address] 31 Mar, 2014 [facility] [place] [facility] [address] [id number] [place] [address] 31 Mar, 2014 [facility] [place] [facility] [address] [id number] [place] [address] 30 Mar, 2014 [facility] [place] [facility] [address] [id number] [place] [address] 30 Mar, 2014 [facility] [place] [facility] [address] [id number] [place] [address] 29 Mar, 2014 [facility] [place] [facility] [address] [id number] [place] [address] 29 Mar, 2014 [facility] [place] [facility] [address] [id number] [place] [address] Mar, [facility] [place] [facility] [address] [id number] [place] [address] Mar, [facility] [place] [facility] [address] [id number] [place] [address] 15 Mar, 2014 [facility] [place] [facility] [address] [id number] [place] [address] 15 Mar, 2014 [facility] [place] [facility] [address] [id number] [place] [address] 15 Mar, 2014 [facility] [place] [facility] [address] [id number] [place] [address] 15 Mar, 2014 [facility] [place] [facility] [address] [id number] [place] [address] 15 Mar, 2014 [facility] [place] [facility] [address] [id number] [place] [address] 15 Mar, 2014 [facility] [place] [facility] [address] [id number] [place] [address] 08 Mar, 2014 [facility] [place] [facility] [address] [id number] [place] [address] 08 Mar, 2014 [facility] [place] [facility] [address] [id number] [place] [address] Mar, [facility] [place] [facility] [address] [id number] [place] [address] Mar, [facility] [place] [facility] [address] [id number] [place] [address] Mar, [facility] [place] [facility] [address] [id number] [place] [address] 2002 Mar, [facility] [place] [facility] [address] [id number] [place] [address] Feb, [facility] [place] [facility] [address] [id number] [place] [address] Feb, [facility] [place] [facility] [address] [id number] [place] [address] Feb, [facility] [place] [facility] [address] [id number] [place] [address] Feb, [facility] [place] [facility] [address] [id number] [place] [address] Feb, [facility] [place] [facility] [address] [id number] [place] [address] Feb, [facility] [place] [facility] [address] [id number] [place] [address] Feb, [facility] [place] [facility] [address] [id number] [place] [address] Feb, [facility] [place] [facility] [address] [id number] [place] [address] Feb, [facility] [place] [facility] [address] [id number] [place] [address] Feb, [facility] [place] [facility] [address] [id number] [place] [address] Feb, [facility] [place] [facility] [address] [id number], [place] [address] Feb, [facility] [place] [facility] [address] [id number] [place] [address] 4284 Feb, [facility] [place] [facility] [address] [id number] [place] [address] 3874 Feb, [facility] [place] [facility] [address] [id number] [place] [address] Feb, [facility] [place] [facility] [address] [id number] [place] [address] 2789 Feb, [facility] [place] [facility] [address] [id number] [place] [address] 4262 Feb, [facility] [place] [facility] [address] [id number] [place] [address] 2200 Jan, [facility] [place] [facility] [address] [id number] [place] [address]- 8378 Jan, [facility] [place] [facility] [address] [id number] [place] [address]- 7271 Jan, [facility] [place] [facility] [address] [id number] [place] [address]- 1347 Jan, [facility] [place] [facility] [address] [id number] [place] [address]- 5652 Jan, [facility] [place] [facility] [address] [id number] [place] [address]- 2534 Jan, [facility] [place] [facility] [address] [id number] [place] [address] 3170 Jan, [facility] [place] [facility] [address] [id number] [place] [address]- 1346 Jan, [facility] [place] [facility] [address] [id number] [place] [address]- 0657 Jan, [facility] [place] [facility] [address] [id number] [place] [address]- 1046 Jan, [facility] [place] [facility] [address] [id number] [place] [address]- 6878 Jan, [facility] [place] [facility] [address] [id number] [place] [address]- 1423 Dec, [facility] [place] [facility] [address] [id number] [place] [address] Dec, [facility] [place] [facility] [address] [id number] [place] [address]- 4060 Nov, [facility] [place] [facility] [address] [id number] [place] [address]- 0240 Nov, [facility] [place] [facility] [address] [id number] [place] [address]- 3398 Nov, [facility] [place] [facility] [address] [id number] [place] [address]- 6887 Nov, [facility] [place] [facility] [address] [id number] [place] [address]- 8582 Nov, [facility] [place] [facility] [address] [id number] [place] [address]- 7297 Nov, [facility] [place] [facility] [address] [id number] [place] [address]- 6298 Nov, [facility] [place] [facility] [address] [id number] [place] [address]- 1383 Oct, [facility] [place] [facility] [address] [id number] [place] [address]- 9008 Oct, [facility] [place] [facility] [address] [id number] [place] [address]- 1741 Oct, [facility] [place] [facility] [address] [id number] [place] [address]- 9343 Oct, [facility] [place] [facility] [address] [id number] [place] [address]- 0845 Sep, [facility] [place] [facility] [address] [id number] [place] [address]- 5356 Sep, [facility] [place] [facility] [address] [id number] [place] [address]- 4853 Sep, [facility] [place] [facility] [address] [id number] [place] [address]- 8331 Sep, [facility] [place] [facility] [address] [id number] [place] [address]- 3839 Sep, [facility] [place] [facility] [address] [id number] [place] [address]- 5092 Sep, [facility] [place] [facility] [address] [id number] [place] [address]- 6981 Sep, [facility] [place] [facility] [address] [id number] [place] [address]- 2924 Sep, [facility] [place] [facility] [address] [id number] [place] [address]- 1742 Sep, [facility] [place] [facility] [address] [id number] [place] [address]- 6945 Sep, [facility] [place] [facility] [address] [id number] [place] [address]- 2419 Sep, [facility] [place] [facility] [address] [id number] [place] [address]- 5538 Sep, [facility] [place] [facility] [address] [id number] [place] [address]- 2882 Sep, [facility] [place] [facility] [address] [id number] [place] [address]- 1627 Sep, [facility] [place] [facility] [address] [id number] [place] [address] 1947 August, [facility] [place] [facility] [address] [id number] [place] [address]- 1618 August, [facility] [place] [facility] [address] [id number] [place] [address]- 4239 August, [facility] [place] [facility] [address] [id number] [place] [address] 1600 August, [facility] [address] [id number] [place] [address]- 3671 August, [facility] [place] [facility] [address] [id number] [place] [address] 9899 August, [facility] [place] [facility] [address] [id number] [place] [address] August, [facility] [place] [facility] [address] [id number] [place] [address]- 8725 August, [facility] [place] [facility] [address] [id number] [place] [address]- 0682 August, [facility] [place] [facility] [address] [id number] [place] [address]- 2675 August, [facility] [place] [facility] [address] [id number] [place] [address]- 3414 August, [facility] [place] [facility] [address] [id number] [place] [address]- 5227 August, [facility] [place] [facility] [address] [id number] [place] [address]- 7868 August, [facility] [place] [facility] [address] [id number] [place] [address]- 3801 August, [facility] [place] [facility] [address] [id number] [place] [address]- 0081 August, [facility] [place] [facility] [address] [id number] [place] [address]- 1472 August, [facility] [place] [facility] [address] [id number] [place] [address]- 1772 August, [facility] [place] [facility] [address] [id number] [place] [address]- 5328 August, [facility] [place] [facility] [address] [id number] [place] [address]- 5853 August, [facility] [place] [facility] [address] [id number] [place] [address]- 2274 Jul, [facility] [place] [facility] [address] [id number] [place] [address]- 5968 Jul, [facility] [place] [facility] [address] [id number] [place] [address]- 6881 Jul, [facility] [place] [facility] [address] [id number] [place] [address]- 4295 Jul, [facility] [place] [facility] [address] [id number] [place] [address]- 7418 Jun, [facility] [place] [facility] [address] [id number] [place] [address]- 6930 Jun, [facility] [place] [facility] [address] [id number] [place] [address]- 1545 Jun, [facility] [place] [facility] [address] [id number] [place] [address]- 1968 Jun, [facility] [place] [facility] [address] [id number] [place] [address]- 0245 Jun, [facility] [place] [facility] [address] [id number] [place] [address]- 1930 Jun, [facility] [place] [facility] [address] [id number] [place] [address]- 7407 Jun, [facility] [place] [facility] [address] [id number] [place] [address]- 3327 Jun, [facility] [place] [facility] [address] [id number] [place] [address]- 0437 Jun, [facility] [place] [facility] [address] [id number] [place] [address]- 1250 Jun, [facility] [place] [facility] [address] [id number] [place] [address]- 8122 May, [facility] [place] [facility] [address] [id number] [place] [address]- 5316 May, [facility] [place] [facility] [address] [id number] [place] [address]- 3738 May, [facility] [place] [facility] [address] [id number] [place] [address]- 9986 May, [facility] [place] [facility] [address] [id number] [place] [address]- 0526 May, [facility] [place] [facility] [address] [id number] [place] [address]- 5729 May, 2013 [facility] [place] [facility] [address] [id number] [place] [address]- 5326 20 May, 2013 [facility] [place] [facility] [address] [id number] [place] [address]- 0511 May, [facility] [place] [facility] [address] [facility] [id number] [place] [address]- 2400 May, [facility] [place] [facility] [address] [id number] [place] [address]- 4781 18 May, 2013 [facility] [place] [facility] [address] [id number] [place] [address]- 2828 18 May, 2013 [facility] [place] [facility] [address] [facility] [id number] [place] [address]- 1438 17 May, 2013 [facility] [place] [facility] [address] [facility] [id number] [place] [address]- 2498 May, 2013 [facility] [place] [facility] [address] [id number] [place] [address]- 5749 May, 2013 [facility] [place] [facility] [address] [id number] [place] [address]- 7635 10 May, 2013 [facility] [place] [facility] [address] [id number] [place] [address]- 8136 07 May, 2013 [facility] [place] [facility] [address] [facility] [id number] [place] [address]- 9569 07 May, 2013 [facility] [place] [facility] [address] [id number] [place] [address]- 4447 17 Apr, 2013 [facility] [address] [id number] [place] [address]- 1418 Apr, [facility] [address] [id number] [place] [address]- 2676 15 Apr, 2013 [facility] [address] [id number] [place] [address]- 8336 Apr, [facility] [address] [id number] [place] [address]- 3738 Apr, [facility] [address] [id number] [place] [address]- 0629 Apr, [facility] [address] [id number] [place] [address]- 5055 Apr, [facility] [address] [id number] [place] [address]- 8369 Mar, [facility] [address] [id number] [place] [address]- 6507 Mar, [facility] [address] [id number] [place] [address]- 9455 Mar, [facility] [address] [id number] [place] [address]- 0322 Mar, [facility] [address] [id number] [place] [address]- 7920 Mar, [facility] [address] [id number] [place] [address]- 8013 Mar, [facility] [address] [id number] [place] [address]- 5349 Mar, [facility] [address] [id number] [place] [address]- 2236 Mar, [facility] [address] [id number] [place] [address] Mar, [facility] [address] [id number] [place] [address]- 3904 Mar, [facility] [place] [facility] [address] [id number] [place] [address]- 1322 Mar, [facility] [place] [facility] [address] [id number] [place] [address]- 6296 Feb, [facility] [place] [facility] [address] [id number] [place] [address]- 9938 Feb, [facility] [place] [facility] [address] [id number] [place] [address]- 9887 Feb, [facility] [place] [facility] [address] [id number] [place] [address]- 5963 Feb, [facility] [place] [facility] [address] [id number] [place] [address]- 1093 Feb, [facility] [place] [facility] [address] [id number], [place] [address]- 1342 Feb, [facility] [place] [facility] [address] [id number] [place] [address]- 6378 15 Feb, 2013 [facility] [place] [facility] [address] [id number], [place] [address]- 9763 14 Feb, 2013 [facility] [place] [facility] [address] [id number], [place] [address]- 6218 14 Feb, 2013 [facility] [place] [facility] [address] [id number], [place] [address]- 2137 13 Feb, 2013 [facility] [place] [facility] [address] [id number], [place] [address]- 1629 13 Feb, 2013 [facility] [place] [facility] [address] [id number], [place] [address]- 1048 12 Feb, 2013 [facility] [place] [facility] [address] [id number], [place] [address]- 4486 12 Feb, 2013 [facility] [place] [facility] [address] [id number], [place] [address]- 4650 Feb, [facility] [place] [facility] [address] [id number] [place] [address]- 8545 Feb, [facility] [place] [facility] [address] [id number], [place] [address]- 4902 Feb, [facility] [place] [facility] [address] [id number] [place] [address]- 6663 Jan, [facility] [place] [facility] [address] [id number] [place] [address]- 3524 Jan, [facility] [place] [facility] [address] [id number] [place] [address]- 8504 Jan, [facility] [place] [facility] [address] [id number] [place] [address]- 1611 Jan, [facility] [place] [facility] [address] [id number], [place] [address]- 8248 Jan, [facility] [place] [facility] [address] [id number] [place] [address]- 0256 Jan, [facility] [place] [facility] [address] [facility] [id number] [place] [address]- 1291 Jan, [facility] [place] [facility] [address] [facility] [id number], [place] [address]- 5163 Jan, [facility] [place] [facility] [address] [id number], [place] [address]- 5848 10 Jan, 2013 [facility] [place] [facility] [address] [id number], [place] [address]- 3889 27 Dec, 2012 [facility] [place] [facility] [address] [id number] [place] [address]- 6831 20 Dec, 2012 [facility] [place] [facility] [address] [facility] [id number] [place] [address]- 4138 19 Dec, 2012 [facility] [place] [facility] [address] [facility] [id number], [place] [address]- 2491 10 Dec, 2012 [facility] [place] [facility] [address] [id number] [place] [address]- 1123 Dec, [facility] [place] [facility] [address] [id number] [place] [address]- 8143 Dec, [facility] [place] [facility] [address] [id number] [place] [address]- 9905 Nov, [facility] [place] [facility] [address] [id number] [place] [address]- 3797 Nov, [facility] [place] [facility] [address] [id number] [place] [address]- 5747 Nov, [facility] [place] [facility] [address] [id number] [place] [address]- 0302 Nov, [facility] [place] [facility] [address] [id number] [place] [address]- 0568 Nov, [facility] [place] [facility] [address] [id number] [place] [address]- 7700 Nov, [facility] [place] [facility] [address] [id number] [place] [address]- 2784 Nov, [facility] [place] [facility] [address] [id number] [place] [address]- 7262 Nov, [facility] [place] [facility] [address] [id number] [place] [address]- 8611 Nov, [facility] [place] [facility] [address] [id number] [place] [address]- 7946 Nov, [facility] [place] [facility] [address] [id number] [place] [address]- 9224 Oct, [facility] [place] [facility] [address] [id number] [place] [address]- 6142 Oct, [facility] [place] [facility] [address] [id number] [place] [address]- 5001 Oct, [facility] [place] [facility] [address] [id number] [place] [address]- 4718 Oct, [facility] [address] [id number] [place] [address]- 7834 Oct, [facility] [place] [facility] [address] [id number] [place] [address]- 5759 Oct, [facility] [place] [facility] [address] [id number] [place] [address]- 3119 Oct, [facility] [place] [facility] [address] [id number] [place] [address]- 2697 Oct, [facility] [address] [id number] [place] [address]- 1082 Sep, [facility] [place] [facility] [address] [id number] [place] [address]- 3403 Sep, [facility] [place] [facility] [address] [id number] [place] [address]- 2409 Sep, [facility] [place] [facility] [address] [id number] [place] [address]- 1459 Sep, [facility] [place] [facility] [address] [id number] [place] [address]- 5526 Sep, [facility] [place] [facility] [address] [id number] [place] [address]- 5761 Sep, [facility] [place] [facility] [address] [id number], [place] [address]- 3289 Sep, [facility] [place] [facility] [address] [id number], [place] [address]- 6831 Sep, [facility] [place] [facility] [address] [id number] [place] [address]- 7229 August, [facility] [place] [facility] [address] [id number], [place] [address]- 8390 August, [facility] [place] [facility] [address] [id number] [place] [address]- 3354 August, [facility] [place] [facility] [address] [id number] [place] [address]- 8939 August, [facility] [address] [id number] [place] [address]- 2295 August, [facility] [address] [id number] [place]81 Jul, [facility] [address] [id number] [place] [address]- 2012 Jul, [facility] [address] [id number] [place] [address]- 0350 Jul, [facility] [address] [id number] [place] [address]- 7541 Jul, [facility] [address] [id number] [place] [address]- 5553 Jul, [facility] [address] [id number] [place] [address]- 3596 Jun, [facility] [address] [id number] [place] [address]- 2125 18 Jun, 2012 [facility] [address] [id number] [place] [address]- 0142 15 Jun, 2012 [facility] [address] [id number] [place] [address]- 6777 14 Jun, 2012 [facility] [address] [id number] [place] [address]- 8149 Jun, [facility] [place] [facility] [address] [id number] [place] [address]- 0530 Jun, [facility] [place] [facility] [address] [id number] [place] [address]- 1732 Jun, [facility] [place] [facility] [address] [id number] [place] [address]- 2292 Jun, [facility] [address] [id number] [place] [address]- 3756 Jun, [facility] [address] [id number] [place] [address] May, [facility] [address] [id number] [place] [address] May, [facility] [address] [id number] [place] [address] May, [facility] [address] [id number] [place] [address] May, [facility] [address] [id number] [place] [address] Apr, [facility] [address] [id number] [place] [address] Apr, [facility] [address] [id number] [place] [address] Apr, [facility] [address] [id number] [place] [address] Apr, [facility] [address] [id number] [place] [address] Apr, [facility] [address] [id number] [place] [address] Apr, [facility] [address] [id number] [place] [address] Apr, [facility] [address] [id number] [place] [address] Mar, [facility] [address] [place] [id number] Mar, [facility] [address] [id number] [place] [address] Mar, [facility] [address] [id number] [place] [address] Mar, [facility] [address] [id number] [place] [address] Mar, [facility] [place] [facility] [address] [id number] [place] [address] Mar, [facility] [place] [facility] [address] [id number] [place] [address] Mar, [facility] [place] [facility] [address] [facility] [id number] [place] [address] Mar, [facility] [place] [facility] [address] [id number] [place] [address] Mar, [facility] [place] [facility] [address] [id number] [place] [address] Mar, [facility] [place] [facility] [address] [id number] [place] [address] Mar, [facility] [place] [facility] [address] [facility] [id number] [place] [address] Mar, [facility] [place] [facility] [address] [id number] [place] [address] Mar, [facility] [place] [facility] [address] [id number] [place] [address] Mar, [facility] [place] [facility] [address] [id number] [place] [address] Mar, [facility] [place] [facility] [address] [id number], [place] [address] Mar, [facility] [place] [facility] [address] [id number], [place] [address] Mar, [facility] [place] [facility] [address] [id number] [place] [address] Feb, [facility] [place] [facility] [address] [id number] [place] [address] Feb, [facility] [place] [facility] [address] [facility] [id number] [place] [address] Feb, [facility] [place] [facility] [address] [id number] [place] [address] Feb, [facility] [place] [facility] [address] [id number] [place] [address] Feb, [facility] [place] [facility] [address] [id number] [place] [address] Feb, [facility] [place] [facility] [address] [id number] [place] [address] Feb, [facility] [place] [facility] [address] [id number] [place] [address] Feb, [facility] [place] [facility] [address] [id number] [place] [address] Feb, [facility] [place] [facility] [address] [id number] [place] [address] Feb, [facility] [place] [facility] [address] [id number] [place] [address] Feb, [facility] [place] [facility] [address] [id number] [place] [address] Feb, [facility] [place] [facility] [address] [id number] [place] [address] Feb, [facility] [place] [facility] [address] [facility] [id number] [place] [address] 47[address] Feb, [facility] [place] [facility] [address] [id number] [place] [address] Feb, [facility] [place] [facility] [address] [id number] [place] [address]- [address] Feb, [facility] [place] [facility] [address] [id number] [place] [address] Jan, [facility] [place] [facility] [address] [id number] [place] [address]- 47[address] Jan, [facility] [place] [facility] [address] [id number] [place] [address]- [address] Jan, [facility] [place] [facility] [address] [id number] [place] [address]- [address] Jan, 2011 [facility] [place] [facility] [address] [id number] [place] [address] Jan, [facility] [place] [facility] [address] [id number] [place] [address]- [address] Jan, [facility] [place] [facility] [address] [id number] [place] [address]- [address] Jan, [facility] [place] [facility] [address] [id number] [place] [address]- [address] Jan, [facility] [place] [facility] [address] [id number] [place] [address] Jan, [facility] [place] [facility] [address] [id number] [place] [address] 75[address] Jan, [facility] [place] [facility] [address] [id number] [place] [address]- 1336 Jan, [facility] [place] [facility] [address] [id number] [place] [address]- 80[address] Jan, [facility] [place] [facility] [address] [id number], [place] [address] Jan, [facility] [place] [facility] [address] [id number] [place] [address]- 0990 Jan, [facility] [place] [facility] [address] [id number], [place] [address] Jan, [facility] [place] [facility] [address] [id number] [place] [address]- [address] Jan, [facility] [place] [facility] [address] [id number] [place] [address]- 9490 Jan, [facility] [place] [facility] [address] [id number], [place] [address] Dec, [facility] [place] [facility] [address] [id number], [place] [address] 20 Dec, 2011 [facility] [place] [facility] [address] [id number] [place] [address] 2546 18 Dec, 2011 [facility] [place] [facility] [address] [id number] [place] [address] 2546 18 Dec, 2011 [facility] [place] [facility] [address] [id number] [place] [address] 2546 10 Dec, 2011 [facility] [place] [facility] [address] [id number] [place] [address] 2546 10 Dec, 2011 [facility] [place] [facility] [address] [id number] [place] [address] 2546 10 Dec, 2011 [facility] [place] [facility] [address] [id number] [place] [address]- [address] 07 Dec, 2011 [facility] [place] [facility] [address] [id number] [place] [address]- [address] 30 Nov, 2011 [facility] [place] [facility] [address] [id number] [place] [address] Nov, [facility] [place] [facility] [address] [id number] [place] [address] Nov, [facility] [place] [facility] [address] [id number] [place] [address] Nov, [facility] [place] [facility] [address] [id number] [place] [address] Nov, [facility] [place] [facility] [address] [id number] [place] [address] Nov, [facility] [place] [facility] [address] [id number] [place] [address] Oct, [facility] [place] [facility] [address] [id number] [place] [address] Oct, [facility] [place] [facility] [address] [id number] [place] [address] Oct, [facility] [place] [facility] [address] [id number] [place] [address] Oct, [facility] [place] [facility] [address] [id number] [place] [address] Oct, [facility] [place] [facility] [address] [id number] [place] [address] Oct, [facility] [address] [id number] [place] [address] Oct, [facility] [place] [facility] [address] [id number] [place] [address] Sep, [facility] [place] [facility] [address] [id number] [place] [address] Sep, [facility] [place] [facility] [address] [id number] [place] [address] Sep, [facility] [place] [facility] [address] [id number] [place] [address] Sep, [facility] [address] [id number] [place] [address] Sep, [facility] [place] [facility] [address] [id number] [place] [address] 15 Sep, 2011 [facility] [address] [id number] [place] [address] 14 Sep, 2011 [facility] [place] [facility] [address] [id number] [place] [address] Sep, [facility] [place] [facility] [address] [id number] [place] [address] 05 Sep, 2011 [facility] [place] [facility] [address] [id number] [place] [address]- [address] 04 Sep, 2011 [facility] [place] [facility] [address] [id number] [place] [address] August, [facility] [place] [facility] [address] [id number] [place] [address] August, [facility] [address] [id number] [place] [address] August, [facility] [place] [facility] [address] [id number] [place] [address] August, [facility] [place] [facility] [address] [id number] [place] [address] August, [facility] [place] [facility] [address] [id number] [place] [address] Jul, [facility] [place] [facility] [address] [id number] [place] [address] Jul, [facility] [place] [facility] [address] [id number] [place] [address] 79[address] Jul, [facility] [place] [facility] [address] [id number] [place] [address] Jul, [facility] [place] [facility] [address] [id number] [place] [address] Jul, [facility] [place] [facility] [address] [id number] [place] [address] Jul, [facility] [place] [facility] [address] [id number] [place] [address] Jul, [facility] [place] [facility] [address] [id number] [place] [address] Jun, [facility] [place] [facility] [address] [id number] [place] [address] Jun, [facility] [place] [facility] [address] [id number] [place] [address] Jun, [facility] [place] [facility] [address] [id number] [place] [address] Jun, [facility] [place] [facility] [address] [id number] [place] [address] Jun, [facility] [place] [facility] [address] [id number] [place] [address] May, [facility] [place] [facility] [address] [id number] [place] [address] May, [facility] [place] [facility] [address] [id number] [place] [address] May, [facility] [place] [facility] [address] [id number] [place] [address] May, [facility] [place] [facility] [address] [id number] [place] [address], [place] [address] May, [facility] [place] [facility] [address] [id number] [place] [address], [place] [address] May, [facility] [place] [facility] [address] [facility] [id number] [place] [address] Apr, [facility] [place] [facility] [id number] [address] Mar, [facility] [place] [facility] [address] [id number] [place] [address] Feb, [facility] [place] [facility] [id number] [address] Feb, [facility] [place] [facility] [address] [facility] [id number] [place] [address]- 1498 Feb, [facility] [place] [facility] [address] [facility] [id number] [place] [address]- 4[address] Feb, [facility] [place] [facility] [address] [id number] [place] [address] Jan, [facility] [place] [facility] [address] [id number] [place] [address]- 8[address] Jan, [facility] [place] [facility] [address] [id number] [place] [address]- [address] Jan, [facility] [place] [facility] [address] [facility] [id number] [place] [address]- [address] Jan, [facility] [address] [id number] [place] [address] 14 Jan, 2011 [facility] [place] [facility] [address] [id number] [place] [address] 19 Dec, 2010 [facility] [place] [facility] [address] [id number] [place] [address]- 7137 20 Oct, 2010 [facility] [place] [facility] [address] [id number] [place] [address]- [address] August, [facility] [place] [facility] [address] [id number] [place] [address]- [address] 29 Mar, 2010 [facility] [place] [facility] [address] [id number] [place] [address]- 8959 27 Mar, 2010 [facility] [place] [facility] [address] [id number] [place] [address]- 0212 16 Mar, 2010 [facility] [place] [facility] [address] [id number], [place] [address]- [address] 15 Mar, 2010 [facility] [place] [facility] [address] [id number] [place] [address]- 9598 15 Mar, 2010 [facility] [place] [facility] [address] [facility] [id number], [place] [address]- [address] 08 Mar, 2010 [facility] [place] [facility] [address] [id number], [place] [address]- [address]107 03 Mar, 2010 [facility] [place] [facility] [address] [id number], [place] [address]- [address] 24 Feb, 2010 [facility] [place] [facility] [address] [id number] [place] [address]- 4654 24 Feb, 2010 [facility] [place] [facility] [address] [id number][place] [address]- 7069 15 Feb, 2010 [facility] [place] [facility] [address] [id number] [address] 19 Jan, 2010 [facility] [place] [facility] [address] [id number], [place] [address]- 2272 Jan, [facility] [place] [facility] [address] [id number] [place] [address]- [address] 18 Jan, 2010 [facility] [place] [facility] [address] [id number], [place] [address]- 6[address] Nov, [facility] [place] [facility] [address] [facility] [id number] [place] [address]- 7632 14 Sep, 2009 [facility] [place] [facility] [address] [id number], [place] [address]- [address] August, [facility] [place] [facility] [address] [id number] [place] [address], [place] [address]- 7876 30 Mar, 2009 [facility] [place] [facility] [address] [facility] [id number] [place] [address]- 459[address] Mar, [facility] [place] [facility] [address] [facility] [id number], [place] [address]- [address]951 17 Feb, 2009 [facility] [place] [facility] [address] [facility] [id number], [place] [address]- 5207 10 Feb, 2009 [facility] [place] [facility] [address] [facility] [id number], [place] [address]- 2308 10 Feb, 2009 [facility] [place] [facility] [address] [facility] [id number], [place] [address]- 5124 10 Feb, 2009 [facility] [place] [facility] [address] [facility] [id number], [place] [address]- 1787 06 Feb, 2009 [facility] [place] [facility] [address] [facility] [id number], [place] [address]- 5844 27 Jan, 2009 [facility] [place] [facility] [address] [facility] [id number][place] [address]- 9508 26 Jan, 2009 [facility] [place] [facility] [address] [facility] [id number][place] [address]- 1293 20 Jan, 2009 [facility] [place] [facility] [address] [facility] [id number], [place] [address]- 6724 19 Jan, 2009 [facility] [place] [facility] [address] [facility] [id number] [place] [address] [address] Nov, [facility] [address] [facility] [id number], [place] [address]- 1625 Sep, [facility] [address] [facility] [id number][place] [address]- 89[address] August, [place] [address] [facility] [id number][place] [address]- [address] Jul, [facility] [address] [facility] [id number], [place] [address]- [address] May, IMMUNIZATIONS No Known Immunizations SOCIAL HISTORY Never Assessed REASON FOR VISIT Medication refill request PLAN OF CARE VITAL SIGNS MEDICATIONS Medication Instructions Dosage Frequency Start Date End Date Duration Status Lyrica 50 mg Orally Three times a day 1 capsule 8h Jun, Active RESULTS No Results PROCEDURES No Known [...] Knee Surgery 07/16/17 Hospitalization History [facility] [place]- left hand/wrist swelling 10/09/2017
--- OUTSIDE RECORDS SUMMARY | 2018-01-01 12:39 | XMS REPORT ---
Author Author SE[facility]IT DUN[facility]AP [facility] Address [address] [place] [address] Care Team Providers Care Licensed Massage Therapist Name Role Phone SENAIT DUNLAP Unavailable PROBLEMS Type Condition ICD9-CM Code XLC28-GR Code Onset Dates Condition Status SNOMED Code Problem History of common bile duct surgery Z98.89 Active 667198209 Problem Barretts esophagus K22.70 Active 277490935 Problem 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 Active 89901553 Problem Colon polyp K63.5 Active 06941025 Problem Bilateral low back pain without sciatica M54.5 Active 857152859 Problem Screening breast examination Z12.39 Active 245841530 Problem Postmenopausal Z78.0 Active 09493737 Problem Osteopenia M85.80 Active 702425038 Problem Cigarette nicotine dependence without complication F17.210 Active 69777456 Problem Type 2 diabetes mellitus with diabetic peripheral angiopathy without gangrene E11.51 Active 687106985 Problem Vascular dementia without behavioral disturbance F01.50 Active [id number] Problem Unspecified atherosclerosis of [place] arteries of extremities, unspecified extremity I70.209 Active 683355119797363 Problem Arthritis M19.90 Active 7153426 Problem Chronic atrial fibrillation I48.2 Active 051475161 Problem Chronic obstructive pulmonary disease with acute lower respiratory infection J44.0 Active 738838139 Problem Other chronic pancreatitis K86.1 Active 856240863 Problem Stress incontinence of urine N39.3 Active 95420990 Problem Controlled type 2 diabetes mellitus without complication, without long -term current use of insulin E11.9 Active 757578039 Problem Unspecified psychosis F29 Active 28432822 Problem Xeroderma Q80.9 Active 17919188 Problem COPD (chronic obstructive pulmonary disease) J44.9 Active 96455518 Problem Dementia without behavioral disturbance, unspecified dementia type F03.90 Active 50024005 Problem Gastroparesis K31.84 Active 563448348 Problem Type 2 diabetes mellitus with diabetic neuropathy, without long-term current use of insulin E11.40 Active 20000843 Problem Osteoporosis M81.0 Active 96405752 Problem Atherosclerosis of [place] artery of both lower extremities with intermittent claudication I70.213 Active 605949866980626 Problem Hyperlipidemia E78.5 Active 69327814 Problem Diabetic polyneuropathy associated with type 2 diabetes mellitus E11.42 Active 11858514 Problem Essential tremor G25.0 Active 10548251 Problem 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.118 Active 0915261186377 Problem Generalized anxiety disorder F41.1 Active 318893546 Problem Gastroesophageal reflux disease, esophagitis presence not specified K21.9 Active 788788232 Problem Coronary artery disease involving [place] coronary artery of [place] heart with other form of angina pectoris I25.118 Active 6543016113836 Problem Postconcussion syndrome F07.81 Active 08183650 Problem Chronic pain syndrome G89.4 Active 854973366 Problem Migraine without aura and without status migrainosus, not intractable G43.009 Active 997490656 Problem Paroxysmal atrial fibrillation I48.0 Active 600443397 Problem Migraine without aura and with status migrainosus, not intractable G43.001 Active 205811979 Problem Cervicalgia M54.2 Active 8590549055225 Problem Acute exacerbation of chronic obstructive pulmonary disease (COPD) J44.1 Active 541197932 Problem Major depressive disorder, recurrent episode, moderate F33.1 Active 162084081 Problem Crohn''s disease without complication, unspecified gastrointestinal tract location K50.90 Active 86405579 Problem Chronic fatigue R53.82 Active 64091180 Problem Bipolar affective disorder, currently depressed, moderate F31.32 Active 119400122 ALLERGIES Substance Reaction Event Type Date Status Penicillin V Potassium rash Drug Allergy Jun, Active Neosporin rash Drug Allergy Jun, Active Ibuprofen rash Drug Allergy Jun, Active Glipizide hives, nausea Drug Allergy Jun, Active ENCOUNTERS Encounter Location Date Diagnosis [facility] [address] [facility] [id number] [address] Nov, [facility] [id number] [address] Nov, [facility] [address] [facility] [id number], [place] [address] Oct, [facility] [address], [place] [address] Oct, [facility] [address] [id number] [address] Oct, [facility] [address] [address] Oct, Edema of both legs R60.0 [facility] [id number] [place] [address] 07089- 0512 Oct, [facility] [id number] [place] [address] 96138- 0081 Sep, [facility] [id number] [place] [address] 74652- 5559 Sep, [facility] [id number] [place] [address] 53262- 7626 Sep, [facility] [address], [place] [address] Sep, Encounter for well woman exam with routine gynecological exam Z01.419 ; Screening for STDs (sexually transmitted diseases) Z11.3 ; Screening breast examination Z12.31 and Overweight (BMI 25.0-29.9) E66.3 [facility] [address], [place] [address] 6[address] Sep, [facility] [address], [place] [address] 9053 Sep, [facility] [address], [place] [address] 7776 Sep, [facility] [address] [address] 26[address] August, [facility] [address], [place] [address] 93[address] August, [facility] [id number] [place] [address] 91377- 3460 August, Type 2 diabetes mellitus with diabetic neuropathy, without long-term current use of insulin E11.40 and Sprain of right ankle, unspecified ligament, initial encounter S93.401A [facility] [id number] [place] [address] 54669- 3455 August, [facility] [id number] [place] [address] 75491- 7802 August, [facility] [id number] [place] [address] 99108- 0299 August, [facility] [id number] [place] [address] 02185- 5164 August, Gastroesophageal reflux disease, esophagitis presence not specified K21.9 [facility] [id number] [place] [address] 91099- 2422 August, [facility] [id number] [place] [address] 61975- 3464 August, [facility] [id number] [place] [address] 38968- 2280 August, [facility] [id number] [place] [address] 93731- 2843 August, Type 2 diabetes mellitus with diabetic neuropathy, without long-term current use of insulin E11.40 and Elevated liver enzymes R74.8 [facility] [id number] [place] [address] 48495- 2709 Jul, [facility] [id number] [place] [address] 79110- 5586 Jul, Cough R05 [facility] [address] 51282- 3717 Jul, [facility] [id number] [place] [address] 48057- 2572 Jul, [facility] [id number] [place] [address] 52371- 2777 Jul, Bipolar affective disorder, currently depressed, moderate F31.32 ; Vascular dementia without behavioral disturbance F01.50 and Generalized anxiety disorder F41.1 [facility] [address] 77407- 9781 Jul, [facility] [address] 13399- 7147 Jul, Type 2 diabetes mellitus with diabetic neuropathy, without long-term current use of insulin E11.40 and Elevated liver enzymes R74.8 [facility] [address] 84368- 3078 Jul, [facility] [address] 68975- 9454 Jul, [facility] [address] 13613- 4336 Jul, [facility] [address] 33435- 9984 Jul, Post-menopausal Z78.0 [facility] [address] 60534- 9515 Jul, Stress incontinence of urine N39.3 [facility] [id number] [place] [address] 83734- 0798 Jul, [facility] [address] 34422- 8273 Jul, [facility] [address] 67311- 0513 Jul, Stress incontinence of urine N39.3 and Cough R05 [facility] [address] 14500- 9543 Jul, [facility] [address] 21241- 0263 Jul, [facility] [address] 08194- 0981 Jul, [facility] [id number] [place] [address] 14857524- 8076 Jul, Gastroesophageal reflux disease, esophagitis presence not specified K21.9 [facility] [id number] [place] [address] 46812- 9560 29 Jun, 2017 Diabetic polyneuropathy associated with type 2 diabetes mellitus E11.42 [facility] [id number] [place] [address] 90957- 1802 28 Jun, 2017 Diabetic polyneuropathy associated with type 2 diabetes mellitus E11.42 ; Coronary artery disease involving [place] coronary artery of [place] heart with other form of angina pectoris I25.118 and Paroxysmal atrial fibrillation I48.0 [facility] [id number] [place] [address] 99311- 8724 Jun, [place] [id number] [place] [address] 11072- 5916 Jun, [facility] [id number] [place] [address] 37578- 2543 Jun, Gastroenteritis K52.9 [facility] [id number] [place] [address] 70578 2546 Jun, Gastroenteritis K52.9 [facility] [address], [place] [address]- 1279 Jun, [facility] [id number] [place] [address] 61078- 8332 Jun, [facility] [id number] [place] [address] 31869- 2547 Jun, Sprain of right ankle, unspecified ligament, initial encounter S93.401A ; Type 2 diabetes mellitus with diabetic neuropathy, without long-term current use of insulin E11.40 ; Atherosclerosis of [place] artery of both lower extremities with intermittent claudication I70.213 ; 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.118 ; Chronic atrial fibrillation I48.2 and Crohn''s disease without complication, unspecified gastrointestinal tract location K50.90 [facility] [address], [place] [address] 17 Jun, 2017 Chronic obstructive pulmonary disease with acute lower respiratory infection J44.0 and Cough R05 [facility] [id number] [place] [address] 32840- 0429 Jun, [facility] [id number] [place] [address] 18306- 9125 Jun, Coughing R05 ; Unspecified atherosclerosis of [place] arteries of extremities, unspecified extremity I70.209 ; Type 2 diabetes mellitus with diabetic peripheral angiopathy without gangrene E11.51 ; Crohn''s disease without complication, unspecified gastrointestinal tract location K50.90 ; Other chronic pancreatitis K86.1 and Chronic atrial fibrillation I48.2 [facility] [id number] [place] [address] 55712 -0136 Jun, [place] [id number] [place] [address] 06293- 0932 Jun, Bipolar affective disorder, currently depressed, moderate F31.32 ; Vascular dementia without behavioral disturbance F01.50 and Generalized anxiety disorder F41.1 [place] [id number] [place] [address] 81373- 9780 May, Generalized anxiety disorder F41.1 [place] [id number] [place] [address] 15791- 2542 May, [place] [id number] [place] [address] 07163- 7310 May, [place] [id number] [place] [address] 54405- 6768 May, Coughing R05 [facility] [id number] [place] [address] 13717- 9052 May, [place] [id number] [place] [address] 06272- 3680 May, Bipolar affective disorder, currently depressed, moderate F31.32 ; Vascular dementia without behavioral disturbance F01.50 and Generalized anxiety disorder F41.1 [place] [address] 94045- 2602 Apr, Generalized anxiety disorder F41.1 [place] [id number] [place] [address] 84829- 8995 Apr, [place] [address] 88438- 2340 Apr, Vascular dementia without behavioral disturbance F01.50 ; Generalized anxiety disorder F41.1 and Bipolar affective disorder, currently depressed, moderate F31.32 [place] [address] 22552- 3835 Apr, Generalized anxiety disorder F41.1 [facility] [address] 62974 -7054 Apr, Cough R05 and Acute exacerbation of chronic obstructive pulmonary disease (COPD) J44.1 [place] [address] 99025- 7647 Apr, [facility] [place] [address] 04013 -5979 Mar, Cough R05 and Cigarette nicotine dependence without complication F17.210 [place] [id number] [place] [address] 39018- 3929 Mar, [place] [address] 41794- 7665 Feb, Generalized anxiety disorder F41.1 ; Major depressive disorder, recurrent episode, moderate F33.1 ; Vascular dementia without behavioral disturbance F01.50 and Unspecified psychosis F29 [place] [id number] [place] [address] 55740- 9344 Feb, [place] [id number] [place] [address] 44598- 4727 Feb, [place] [id number] [place] [address] 53261- 7580 Feb, Generalized anxiety disorder F41.1 [place] [id number] [place] [address] 54355- 8299 Feb, Generalized anxiety disorder F41.1 [place] [id number] [place] [address] 22223- 4200 Feb, Dizziness R42 ; Chronic fatigue R53.82 ; Postconcussion syndrome F07.81 ; Fall, initial encounter W19.XXXA and Disorientation R41.0 [place] [id number] [place] [address] 10760- 3653 Feb, Postconcussion syndrome F07.81 ; Injury of head, initial encounter S09.90XA ; Fall, initial encounter W19.XXXA ; Disorientation R41.0 and Acute cystitis with hematuria N30.01 [place] [id number] [place] [address] 22703- 3489 Jan, Gastroesophageal reflux disease, esophagitis presence not specified K21.9 ; Post-menopausal Z78.0 and Migraine without aura and without status migrainosus, not intractable G43.009 [place] [id number] [place] [address] 63507- 9462 Jan, [place] [id number] [place] [address] 29870- 7932 Jan, Generalized anxiety disorder F41.1 ; Major depressive disorder, recurrent episode, moderate F33.1 ; Vascular dementia without behavioral disturbance F01.50 and Unspecified psychosis F29 [place] [id number] [place] [address] 87478- 1160 Jan, Pneumonia of left lower lobe due to infectious organism J18.1 [place] [id number] [place] [address] 83456- 4606 Jan, Migraine without aura and with status migrainosus, not intractable G43.001 [facility] [id number] [place] [address] 50412 -6761 Jan, Migraine without aura and without status migrainosus, not intractable G43.009 [facility] [id number] [place] [address] 31387- 9722 Dec, Hematoma T14.8 [facility] [id number] [place] [address] 14044- 5103 Dec, [facility] [id number] [place] [address] 65423 -0546 Nov, Fatigue, unspecified type R53.83 [place] [address] 85513- 0959 Nov, Scabies B86 and Coronary artery disease involving [place] coronary artery of [place] heart with other form of angina pectoris I25.118 [place] [id number] [place] [address] 16595- 7700 Nov, [facility] [id number] [place] [address] 95696- 5589 Nov, [place] [id number] [place] [address] 58134- 6873 Oct, [facility] [id number] [place] [address] 57341- 0546 Oct, Generalized anxiety disorder F41.1 and Major depressive disorder, recurrent episode, moderate F33.1 [place] [id number] [place] [address] 11303- 1629 Oct, Cramp of both lower extremities R25.2 [place] [id number] [place] [address] 15231- 7725 18 Oct, 2016 Leg cramps R25.2 [place] [id number] [place] [address] 74765- 7567 Oct, Chronic pain syndrome G89.4 [place] [address] 04605- 1876 Oct, [facility] [id number] [place] [address] 09553- 2578 14 Oct, 2016 [facility] [id number] [place] [address] 85284- 7373 Oct, Routine gynecological examination Z01.419 and Screening for breast cancer Z12.31 [place] [id number] [place] [address] 52539- 4996 28 Sep, 2016 Diarrhea R19.7 [facility] [id number] [place] [address] 57064- 1229 26 Sep, 2016 Back pain M54.9 [place] [id number] [place] [address] 71385- 7703 Sep, [place] [id number] [place] [address] 87050- 0847 Sep, [facility] [id number] [place] [address] 18339 -8936 August, Xeroderma Q80.9 [place] [id number] [place] [address] 22204- 9150 August, Dementia without behavioral disturbance, unspecified dementia type F03.90 [place] [id number] [place] [address] 06289- 6931 August, Chronic pain syndrome G89.4 [place] [id number] [place] [address] 80999- 5395 August, [facility] [id number] [place] [address] 85688- 5116 August, Hyperlipidemia E78.5 ; Other fatigue R53.83 and Other specified hypotension I95.89 [facility] [id number] [place] [address] 50880 -7206 August, Dysuria R30.0 ; Other fatigue R53.83 and Other specified hypotension I95.89 [facility] [id number] [place] [address] 55747- 8649 August, [facility] [id number] [place] [address] 07060- 6174 Jul, Pain in left knee M25.562 and Gastroenteritis K52.9 [facility] [address] 04489- 2166 Jul, [facility] [address] 14505- 8938 Jul, Diarrhea R19.7 [facility] [address] 24951 -7241 Jul, Spider bite, accidental or unintentional, initial encounter T63.301A [place] [address] 23199- 6518 Jul, Primary osteoarthritis of right knee M17.11 and Arthritis M19.90 [place] [id number] [place] [address] 39547- 0848 Jul, Generalized anxiety disorder F41.1 and Major depressive disorder, recurrent episode, moderate F33.1 [place] [address] 20745- 6606 Jul, Type 2 diabetes mellitus with diabetic polyneuropathy E11.42 and Temporal headache R51 [place] [id number] [place] [address] 57901- 0840 Jul, Back pain M54.9 [facility] [id number] [place] [address] 92265- 1990 Jul, [place] [address] 45990- 4518 Jul, [facility] [id number] [place] [address] 56310- 7398 Jun, Nausea R11.0 [facility] [address] 16136 -3426 Jun, Acute suppurative otitis media of both ears without spontaneous rupture of tympanic membranes, recurrence not specified H66.003 and COPD exacerbation J44.1 [place] [address] 64655- 9445 Jun, Generalized anxiety disorder F41.1 [place] [address] 91033- 3087 16 Jun, 2016 [facility] [address] 07621 -8589 Jun, [facility] [address] 75472 -2229 Jun, Shortness of breath R06.02 and COPD exacerbation J44.1 [place] [address] 80349- 5094 Jun, Eczema, unspecified type L30.9 [place] [address] 32740- 5204 Jun, [place] [address] 68528- 1861 May, [place] [address] 55994- 8498 May, Muscle cramping R25.2 [place] [address] 34778- 9761 May, [place] [address] 13994- 7192 Apr, Diarrhea R19.7 [place] [address] 56637- 7952 Apr, [place] [address] 67512- 4143 Apr, Chronic pain syndrome G89.4 [place] [address] 62288- 3430 Apr, Cramp of both lower extremities R25.2 and Vascular dementia without behavioral disturbance F01.50 [place] [address] 09174- 7884 Apr, Type 2 diabetes mellitus with diabetic polyneuropathy E11.42 and Cigarette nicotine dependence without complication F17.210 [place] [address] 22384- 1624 Mar, Generalized anxiety disorder F41.1 [place] [address] 40012- 4144 Feb, Generalized anxiety disorder F41.1 and Major depressive disorder, recurrent episode, moderate F33.1 [place] [address] 28160- 9556 Feb, [facility] [address] 99440 -4154 Feb, Dysuria R30.0 and Acute cystitis with hematuria N30.01 [place] [address] 96824- 7032 Jan, [place] [address] 82321- 6026 Jan, [place] [address] 62616- 3690 Jan, [place] [address] 18803- 6243 Jan, [facility] [address] 33653 -6497 Jan, Wasp sting, accidental or unintentional, initial encounter T63.461A [place] [address] 28921- 1632 06 Jan, 2016 Encounter for immunization Z23 [place] [address] 93392- 5734 Jan, [facility] [id number] [place] [address] 17251- 5114 Jan, [facility] [facility] [id number] [place] [address] 29460- 0905 28 Dec, 2015 Generalized anxiety disorder F41.1 and Major depressive disorder, recurrent episode, moderate F33.1 [facility] [id number] [place] [address] 04731- 3207 21 Dec, 2015 Routine gynecological examination Z01.419 ; Postmenopausal Z78.0 ; Screening breast examination Z12.39 ; Osteopenia M85.80 and Breast cancer screening Z12.39 [facility] [id number] [place] [address] 92636- 7489 20 Dec, 2015 [facility] [id number] [place] [address] 83771- 1948 19 Dec, 2015 [facility] [id number] [place] [address] 35850- 1697 16 Dec, 2015 [facility] [id number] [place] [address] 34616- 7386 16 Dec, 2015 [facility] [id number] [place] [address] 15414- 5021 14 Dec, 2015 [facility] [id number] [place] [address] 28735- 9672 06 Dec, 2015 [facility] [id number] [place] [address] 25342- 9333 Nov, [facility] [id number] [place] [address] 29052 -3026 Nov, Cough R05 ; Other viral agents as the cause of diseases classified elsewhere B97.89 and Acute upper respiratory infection, unspecified J06.9 [facility] [address], [place] [address] 3575 Nov, [facility] [id number] [place] [address] 33345- 2541 Nov, [facility] [address], [place] [address] 5886 Nov, [facility] [id number] [place] [address] 68956- 2982 Nov, [facility] [address], [place] [address] 8584 Nov, [facility] [id number] [place] [address] 76397- 1985 Oct, [facility] [id number] [place] [address] 77789- 0737 Oct, [facility] [id number] [place] [address] 81012- 6001 Oct, [facility] [id number] [place] [address] 05425- 0640 Oct, Chronic pain syndrome G89.4 [facility] [id number] [place] [address] 83075- 6100 Sep, Generalized anxiety disorder F41.1 and Major depressive disorder, recurrent episode, moderate F33.1 [facility] [address] [address]- 2321 Sep, [facility] [address], [place] [address]- 0032 Sep, [facility] [address], [place] [address]- 6863 Sep, Generalized anxiety disorder F41.1 [facility] [address], [place] [address]- 4517 13 Sep, 2015 Cramp of both lower extremities R25.2 and Cervicalgia M54.2 [facility] [address], [place] [address]- 9961 06 Sep, 2015 Generalized anxiety disorder F41.1 [facility] [address], [place] [address]- 1262 Sep, [facility] [id number] [place] [address] 55364 -2430 August, Rash R21 ; Itching L29.9 and Allergic response, subsequent encounter T78.40XD [facility] [id number] [place] [address] 30520- 5947 August, Primary insomnia F51.01 [facility] [id number] [place] [address] 68986 -2257 August, Rash R21 ; Itching L29.9 and Allergic response, initial encounter T78.[address] [place] [address] 92039- 2663 August, [place] [id number] [place] [address] 48660- 4552 August, Cramp of both lower extremities R25.2 [place] [id number] [place] [address] 07624- 4390 August, Back pain M54.9 [place] [facility] [id number] [place] [address] 66978- 3837 August, [facility] [id number] [place] [address] 33241- 9094 August, [facility] [id number] [place] [address] 67552 -2662 August, Cramp of both lower extremities R25.2 [place] [id number] [place] [address] 68214- 6542 August, [place] [address] 49480- 5403 August, Syncope R55 ; Paroxysmal atrial fibrillation I48.0 ; Dementia without behavioral disturbance, unspecified dementia type F03.90 and Chronic pain syndrome G89.4 [place] [id number] [place] [address] 57556- 2243 August, Type 2 diabetes mellitus with diabetic polyneuropathy E11.42 and Syncope R55 [facility] [id number] [place] [address] 70710- 8264 Jul, [facility] [id number] [place] [address] 12213- 6662 Jul, [facility] [id number] [place] [address] 69135- 7041 Jul, [facility] [id number] [place] [address] 54449- 1712 Jul, [facility] [id number] [place] [address] 95800- 5222 Jul, [facility] [id number] [place] [address] 77271- 3095 Jul, UTI (urinary tract infection) N39.0 [facility] [id number] [place] [address] 82355- 5253 Jul, [facility] [id number] [place] [address] 86996- 3547 Jul, Major depressive disorder, recurrent episode, moderate F33.1 and Generalized anxiety disorder F41.1 [facility] [id number] [place] [address] 55377- 2143 Jul, Generalized anxiety disorder F41.1 [facility] [id number] [place] [address] 97194- 3268 Jul, Diarrhea R19.7 [facility] [id number] [place] [address] 59082- 1229 Jul, [facility] [id number] [place] [address] 72439- 1923 Jun, [facility] [id number] [place] [address] 29628- 4498 Jun, Eczema L30.9 [facility] [id number] [place] [address] 22934- 3469 Jun, [facility] [address], [place] [address]- 6149 Jun, COPD (chronic obstructive pulmonary disease) J44.9 [facility] [address], [place] [address]- 2886 Jun, [facility] [address], [place] [address]- 8548 Jun, Major depressive disorder, recurrent episode, moderate F33.1 and Generalized anxiety disorder F41.1 [facility] [address], [place] [address]- 4726 May, [facility] [address], [place] [address]- 3485 May, UTI (urinary tract infection) N39.0 [facility] [address], [place] [address]- 9917 May, [facility] [address], [place] [address]- 3342 May, [facility] [address], [place] [address]- 1345 May, [facility] [address], [place] [address]- 1632 May, [facility] [address], [place] [address]- 4533 Apr, Major depressive disorder, recurrent episode, moderate F33.1 and Generalized anxiety disorder F41.1 [facility] [address], [place] [address]- 3107 Apr, COPD (chronic obstructive pulmonary disease) J44.9 [facility] [address], [place] [address]- 5669 Apr, [facility] [address], [place] [address]- 6424 Apr, Atrial flutter I48.92 [facility] [address], [place] [address]- 1511 Apr, [facility] [address], [place] [address]- 6914 Apr, [facility] [id number] [place] [address] 26651- 4049 Mar, [facility] [id number] [place] [address] 37538- 1604 Mar, [facility] [id number] [place] [address] 96091- 4831 Mar, [facility] [id number] [place] [address] 23996- 1010 Mar, Hyperlipidemia E78.5 ; Type 2 diabetes mellitus with diabetic polyneuropathy E11.42 ; Major depressive disorder, recurrent episode, moderate F33.1 and Chronic pain syndrome G89.4 [facility] [address], [place] [address]- 6922 Mar, [facility] [id number] [place] [address] 92023- 0051 Mar, [facility] [address], [place] [address]- 8474 Mar, [facility] [id number] [place] [address] 03893- 1200 Mar, [facility] [id number] [place] [address] 94236- 1643 Feb, COPD (chronic obstructive pulmonary disease) J44.9 and Back pain M54.9 [facility] [address], [place] [address]- 1567 Feb, [facility] [address], [place] [address]- 0829 Feb, [facility] [id number] [address]- 9782 Feb, [facility] [id number] [place] [address] 47556- 4750 Feb, [facility] [id number] [place] [address] 03243- 4077 Feb, [facility] [id number] [place] [address] 24465- 7502 Feb, [facility] [id number] [place] [address] 76392- 0111 Feb, [facility] [id number] [place] [address] 66777- 6243 Feb, [facility] [id number] [place] [address] 69561- 9595 Feb, Diabetes E11.9 ; Back pain M54.9 and COPD (chronic obstructive pulmonary disease) J44.9 [facility] [id number] [place] [address] 35598- 4300 Jan, [facility] [id number] [place] [address] 91384- 3909 Jan, Major depression, recurrent F33.9 and Generalized anxiety disorder F41.1 [facility] [id number] [place] [address] 69113- 1883 Jan, Chronic pain G89.29 [facility] [id number] [place] [address] 19962- 8713 Jan, [facility] [id number] [place] [address] 52134- 5442 Jan, [facility] [id number] [place] [address] 95907- 3070 Jan, [facility] [id number] [place] [address] 88385- 5148 Jan, [facility] [id number] [place] [address] 59703- 3536 Jan, Nicotine dependence F17.200 [facility] [id number] [place] [address] 60202- 8938 Jan, Nicotine dependence F17.200 and Back pain M54.9 [facility] [address], [place] [address]- 1246 Jan, [facility] [id number] [place] [address] 42678- 7334 28 Dec, 2014 [facility] [id number] [place] [address] 14886- 8066 25 Dec, 2014 Anxiety, generalized 300.02 and Major depression, recurrent 296.30 [facility] [id number] [place] [address] 59884- 0409 24 Dec, 2014 [facility] [id number] [place] [address] 54758- 7339 21 Dec, 2014 [facility] [id number] [place] [address] 21280- 2463 17 Dec, 2014 [facility] [id number] [place] [address] 18650- 9151 15 Dec, 2014 [facility] [id number] [place] [address] 31443- 0524 14 Dec, 2014 [facility] [id number] [place] [address] 79199- 0881 11 Dec, 2014 [facility] [id number] [place] [address] 60297- 2543 10 Dec, 2014 [facility] [id number] [place] [address] 92981- 2218 08 Dec, 2014 Skin tear 879.8 [facility] [id number] [place] [address] 12382- 0159 08 Dec, 2014 Routine gynecological examination V72.31 ; Breast cancer screening V76.10 and Family history of breast cancer in first degree relative V16.3 [facility] [address], [place] [address]- 8039 Dec, [facility] [id number] [place] [address] 43751- 5462 Dec, [facility] [address], [place] [address]- 7282 Nov, [facility] [id number] [place] [address] 61155- 1596 Nov, [facility] [id number] [place] [address] 67454- 3696 Nov, Poor balance 781.99 and Vascular dementia, uncomplicated 290.40 [facility] [id number] [place] [address] 25504- 0906 Nov, [facility] [id number] [place] [address] 09887- 1816 Nov, Major depression, recurrent 296.30 and Anxiety, generalized 300.02 [facility] [id number] [place] [address] 97414- 4555 Nov, [facility] [id number] [place] [address] 66453- 9725 Nov, [facility] [id number] [place] [address] 80622- 3762 Nov, [facility] [id number] [place] [address] 58202- 0169 Nov, [facility] [id number] [place] [address] 38719- 0569 Nov, Vascular dementia, uncomplicated 290.40 and Lumbago 724.2 [facility] [address], [place] [address]- 6119 Nov, [facility] [address], [place] [address]- 3610 Nov, [facility] [id number] [address]- 6622 Nov, [facility] [address], [place] [address]- 3194 Oct, [facility] [address], [place] [address]- 2080 Oct, [facility] [id number] [place] [address] 24507- 8645 Oct, [facility] [id number] [address]- 6699 Oct, COPD (chronic obstructive pulmonary disease) 496 and Hyperlipidemia 272.4 [facility] [id number] [address]- 8650 Oct, Major depression, recurrent 296.30 and Anxiety, generalized 300.02 [facility] [id number] [address]- 2031 Oct, [facility] [address], [place] [address]- 5393 Oct, [facility] [address], [place] [address]- 7780 Oct, [facility] [address], [place] [address]- 0223 Sep, Lumbago 724.2 and Anxiety state, unspecified 300.00 [facility] [address], [place] [address]- 1993 Sep, [facility] [id number] [address]- 1385 Sep, [facility] [address], [place] [address]- 2013 August, [facility] [id number] [address] 3183 August, Major depression, recurrent 296.30 ; Anxiety, generalized 300.02 and No condition on [place] II V71.09 [facility] [place] [facility] [address] [id number] [place] [address]- 1941 August, [facility] [place] [facility] [address] [id number] [place] [address]- 5397 August, [facility] [place] [facility] [address] [id number] [place] [address]- 6320 Jul, [facility] [place] [facility] [address] [id number] [place] [address]- 2578 Jul, [facility] [place] [facility] [address] [id number] [place] [address]- 6337 Jul, [facility] [place] [facility] [address] [id number] [place] [address]- 8879 Jun, [facility] [place] [facility] [address] [facility] [id number] [place] [address]- 3027 Jun, [facility] [place] [facility] [address] [id number] [place] [address]- 6388 Jun, [facility] [place] [facility] [address] [id number] [place] [address]- 3590 Jun, [facility] [place] [facility] [address] [facility] [id number] [place] [address]- 3831 Jun, [facility] [place] [facility] [address] [id number] [address]- 7156 Jun, [facility] [place] [facility] [address] [id number], [place] [address]- 4074 23 Jun, 2014 [facility] [place] [facility] [address] [id number] [place] [address]- 0945 17 Jun, 2014 [facility] [place] [facility] [address] [id number] [place] [address]- 8781 Jun, [facility] [place] [facility] [address] [facility] [id number] [place] [address]- 9497 Jun, [facility] [place] [facility] [address] [id number] [place] [address]- 4382 10 Jun, 2014 [facility] [place] [facility] [address] [id number] [place] [address]- 4790 10 Jun, 2014 [facility] [place] [facility] [address] [id number] [place] [address]- 8304 07 Jun, 2014 [facility] [place] [facility] [address] [facility] [id number] [place] [address]- 6298 07 Jun, 2014 [facility] [place] [facility] [address] [id number] [place] [address]- 3484 02 Jun, 2014 [facility] [place] [facility] [address] [id number] [place] [address]- 2188 02 Jun, 2014 [facility] [place] [facility] [address] [facility] [id number] [place] [address]- 7973 23 May, 2014 [facility] [place] [facility] [address] [facility] [id number] [place] [address]- 5614 23 May, 2014 [facility] [place] [facility] [address] [facility] [id number] [place] [address]- 8462 20 May, 2014 [facility] [place] [facility] [address] [facility] [id number] [place] [address]- 7625 20 May, 2014 [facility] [place] [facility] [address] [facility] [id number] [place] [address]- 0071 20 May, 2014 [facility] [place] [facility] [address] [facility] [id number] [place] [address]- 2540 20 May, 2014 [facility] [place] [facility] [address] [facility] [id number] [place] [address]- 2542 19 May, 2014 [facility] [place] [facility] [address] [facility] [id number] [place] [address]- 6527 12 May, 2014 [facility] [place] [facility] [address] [facility] [id number] [place] [address]- 2546 11 May, 2014 [facility] [place] [facility] [address] [facility] [id number] [place] [address]- 1335 May, [facility] [place] [facility] [address] [id number] [place] [address]- 0244 May, [facility] [place] [facility] [address] [id number] [place] [address]- 2316 May, [facility] [place] [facility] [address] [id number] [place] [address]- 9546 May, [facility] [place] [facility] [address] [id number] [place] [address]- 1260 May, [facility] [place] [facility] [address] [id number] [place] [address]- 6425 Apr, [facility] [place] [facility] [address] [id number] [place] [address]- 2066 Apr, [facility] [place] [facility] [address] [id number] [place] [address]- 5464 Apr, [facility] [place] [facility] [address] [id number] [place] [address] Apr, [facility] [place] [facility] [address] [id number] [place] [address] Apr, [facility] [place] [facility] [address] [id number] [place] [address] Apr, [facility] [place] [facility] [address] [id number], [place] [address] Apr, [facility] [place] [facility] [address] [id number], [place] [address] Apr, [facility] [place] [facility] [address] [id number], [place] [address] Apr, [facility] [place] [facility] [address] [id number], [place] [address] Apr, [facility] [place] [facility] [address] [id number] [place] [address] Apr, [facility] [place] [facility] [address] [id number] [place] [address] Apr, [facility] [address] [id number] [place] [address] 31 Mar, 2014 [facility] [place] [facility] [address] [id number] [place] [address] 31 Mar, 2014 [facility] [address] [id number] [place] [address] 30 Mar, 2014 [facility] [place] [facility] [address] [id number] [place] [address] 30 Mar, 2014 [facility] [address] [id number] [place] [address] Mar, [facility] [place] [facility] [address] [id number] [place] [address] 29 Mar, 2014 [facility] [place] [facility] [address] [id number] [place] [address] Mar, [facility] [address] [id number] [place] [address] 19 Mar, 2014 [facility] [place] [facility] [address] [id number] [place] [address]- [address] 15 Mar, 2014 [facility] [address] [id number] [place] [address] 15 Mar, 2014 [facility] [place] [facility] [address] [id number] [place] [address] 15 Mar, 2014 [facility] [place] [facility] [address] [id number] [place] [address] 15 Mar, 2014 [facility] [place] [facility] [address] [id number] [place] [address] 15 Mar, 2014 [facility] [place] [facility] [address] [id number] [place] [address] 15 Mar, 2014 [facility] [place] [facility] [address] [id number] [place] [address] Mar, [facility] [place] [facility] [address] [id number] [place] [address] Mar, [facility] [place] [facility] [address] [id number] [place] [address] Mar, [facility] [place] [facility] [address] [id number] [place] [address] Mar, [facility] [place] [facility] [address] [id number] [place] [address]- [address] Mar, [facility] [place] [facility] [address] [id number] [place] [address] Mar, [facility] [place] [facility] [address] [id number] [place] [address] Feb, [facility] [place] [facility] [address] [id number] [place] [address] Feb, [facility] [place] [facility] [address] [id number] [place] [address] Feb, [facility] [place] [facility] [address] [id number] [place] [address] Feb, [facility] [place] [facility] [address] [id number] [place] [address] 7199 Feb, [facility] [place] [facility] [address] [id number] [place] [address] 2727 Feb, [facility] [place] [facility] [address] [id number] [place] [address] 6937 Feb, [facility] [place] [facility] [address] [id number] [place] [address]- 3752 Feb, [facility] [place] [facility] [address] [id number] [place] [address]- 8418 Feb, [facility] [place] [facility] [address] [id number] [place] [address]- 0582 Feb, [facility] [place] [facility] [address] [id number], [place] [address] 1008 Feb, [facility] [place] [facility] [address] [id number] [place] [address] 6[address] Feb, [facility] [place] [facility] [address] [id number] [place] [address]- 5910 Feb, [facility] [place] [facility] [address] [id number] [place] [address]- 1161 Feb, [facility] [place] [facility] [address] [id number] [place] [address]- 3988 Feb, [facility] [place] [facility] [address] [id number] [place] [address]- 0960 Feb, [facility] [place] [facility] [address] [id number] [place] [address]- 1061 Feb, [facility] [place] [facility] [address] [id number] [place] [address]- 4516 Jan, [facility] [place] [facility] [address] [id number], [place] [address]- 4[address] Jan, [facility] [place] [facility] [address] [id number] [place] [address]- 2863 Jan, [facility] [place] [facility] [address] [id number], [place] [address]- 4275 Jan, [facility] [place] [facility] [address] [id number], [place] [address]- 5629 Jan, [facility] [place] [facility] [address] [id number], [place] [address]- 5[address] Jan, [facility] [place] [facility] [address] [id number], [place] [address]- 9502 Jan, [facility] [place] [facility] [address] [id number], [place] [address]- 6612 Jan, [facility] [place] [facility] [address] [id number], [place] [address]- 3913 Jan, [facility] [place] [facility] [address] [id number] [place] [address]- 7523 Jan, [facility] [place] [facility] [address] [id number] [place] [address]- 8795 Jan, [facility] [place] [facility] [address] [id number] [place] [address]- 0406 Dec, [facility] [place] [facility] [address] [id number] [place] [address]- 0556 Dec, [facility] [place] [facility] [address] [id number] [place] [address]- 0043 Nov, [facility] [place] [facility] [address] [id number] [place] [address]- 9153 Nov, [facility] [place] [facility] [address] [id number] [place] [address]- 2813 Nov, [facility] [place] [facility] [address] [id number] [place] [address]- 2175 Nov, [facility] [place] [facility] [address] [id number] [place] [address]- 5311 Nov, [facility] [place] [facility] [address] [id number] [place] [address]- 8745 Nov, [facility] [place] [facility] [address] [id number] [place] [address]- 8865 Nov, [facility] [place] [facility] [address] [id number] [place] [address]- 0613 Oct, [facility] [place] [facility] [address] [id number] [place] [address]- 7393 Oct, [facility] [place] [facility] [address] [id number] [place] [address]- 6830 Oct, [facility] [place] [facility] [address] [id number] [place] [address]- 8447 Oct, [facility] [place] [facility] [address] [id number] [place] [address]- 7975 Sep, [facility] [place] [facility] [address] [id number] [place] [address]- 4384 Sep, [facility] [place] [facility] [address] [id number] [place] [address]- 9052 Sep, [facility] [place] [facility] [address] [id number] [place] [address]- 2892 Sep, [facility] [place] [facility] [address] [id number] [place] [address]- 4710 Sep, [facility] [place] [facility] [address] [id number] [place] [address]- 4446 Sep, [facility] [place] [facility] [address] [id number] [place] [address]- 4494 Sep, [facility] [place] [facility] [address] [id number] [place] [address]- 7053 Sep, [facility] [place] [facility] [address] [id number], [place] [address]- 7603 Sep, [facility] [place] [facility] [address] [id number] [place] [address]- 8701 Sep, [facility] [place] [facility] [address] [id number] [place] [address]- 7517 Sep, [facility] [place] [facility] [address] [id number][place] [address]- 1231 Sep, [facility] [place] [facility] [address] [id number], [place] [address]- 5493 Sep, [facility] [place] [facility] [address] [id number] [place] [address]- 8143 Sep, [facility] [place] [facility] [address] [id number], [place] [address]- 7988 August, [facility] [place] [facility] [address] [id number] [place] [address]- 0016 August, [facility] [place] [facility] [address] [id number] [place] [address]- 2613 August, [facility] [address] [id number] [place] [address] August, [facility] [address] [id number] [place] [address]- 8499 August, [facility] [address] [id number] [place] [address]- 7484 August, [facility] [address] [id number] [place] [address]- 9220 August, [facility] [address] [id number] [place] [address]- 7693 August, [facility] [address] [id number] [place] [address]- 1430 August, [facility] [address] [id number] [place] [address]- 6395 August, [facility] [address] [id number] [place] [address]- 8685 August, [facility] [address] [id number] [place] [address]- 0804 August, [facility] [address] [id number] [place] [address]- 3712 August, [facility] [address] [id number] [place] [address]- 7176 August, [facility] [address] [id number] [place] [address]- 5344 August, [facility] [place] [facility] [address] [id number] [place] [address]- 8719 August, [facility] [place] [facility] [address] [id number] [place] [address]- 9345 August, [facility] [address] [id number] [place] [address]- 8613 August, [facility] [place] [facility] [address] [id number] [place] [address]- 1397 August, [facility] [place] [facility] [address] [id number] [place] [address]- 6138 Jul, [facility] [place] [facility] [address] [id number] [place] [address]- 6077 Jul, [facility] [place] [facility] [address] [id number] [place] [address]- 9330 Jul, [facility] [place] [facility] [address] [id number] [place] [address]- 8493 Jul, [facility] [place] [facility] [address] [id number] [place] [address]- 2611 Jun, [facility] [place] [facility] [address] [id number] [place] [address]- 9794 Jun, [facility] [place] [facility] [address] [id number] [place] [address]- 3778 Jun, [facility] [place] [facility] [address] [id number] [place] [address]- 4481 Jun, [facility] [place] [facility] [address] [id number] [place] [address]- 7775 Jun, [facility] [place] [facility] [address] [id number] [place] [address]- 1164 Jun, [facility] [place] [facility] [address] [id number] [place] [address]- 3665 Jun, [facility] [place] [facility] [address] [id number] [place] [address]- 5325 Jun, [facility] [place] [facility] [address] [id number] [place] [address]- 4816 Jun, [facility] [place] [facility] [address] [id number] [place] [address]- 0466 Jun, [facility] [place] [facility] [address] [id number] [place] [address]- 0176 May, [facility] [place] [facility] [address] [id number] [place] [address]- 0586 May, [facility] [place] [facility] [address] [id number] [place] [address]- 4236 May, [facility] [place] [facility] [address] [facility] [id number] [place] [address]- 4766 May, [facility] [place] [facility] [address] [id number] [place] [address]- 8977 May, [facility] [place] [facility] [address] [id number] [place] [address]- 3403 May, [facility] [place] [facility] [address] [facility] [id number] [place] [address]- 2715 20 May, 2013 [facility] [place] [facility] [address] [facility] [id number] [place] [address]- 4473 May, [facility] [place] [facility] [address] [facility] [id number] [place] [address]- 1957 May, [facility] [place] [facility] [address] [facility] [id number] [place] [address]- 4940 18 May, 2013 [facility] [place] [facility] [address] [facility] [id number] [place] [address]- 7353 18 May, 2013 [facility] [place] [facility] [address] [facility] [id number] [place] [address]- 2343 17 May, 2013 [facility] [place] [facility] [address] [facility] [id number] [place] [address]- 254 11 May, 2013 [facility] [place] [facility] [address] [id number] [place] [address]- 6356 11 May, 2013 [facility] [place] [facility] [address] [facility] [id number] [place] [address]- 2546 10 May, 2013 [facility] [place] [facility] [address] [facility] [id number] [place] [address]- 2547 07 May, 2013 [facility] [place] [facility] [address] [id number] [place] [address]- 1464 May, [facility] [place] [facility] [address] [id number] [place] [address]- 7116 Apr, [facility] [place] [facility] [address] [facility] [id number] [place] [address]- 8233 Apr, [facility] [place] [facility] [address] [id number] [place] [address]- 4019 Apr, [facility] [place] [facility] [address] [id number] [place] [address]- 9117 Apr, [facility] [place] [facility] [address] [facility] [id number] [place] [address]- 7991 Apr, [facility] [place] [facility] [address] [facility] [id number] [place] [address]- 8681 Apr, [facility] [place] [facility] [address] [id number] [place] [address]- 2375 Apr, [facility] [place] [facility] [address] [id number] [place] [address]- 9753 Mar, [facility] [place] [facility] [address] [id number] [place] [address]- 8052 Mar, [facility] [place] [facility] [address] [id number] [place] [address]- 6838 Mar, [facility] [place] [facility] [address] [id number], [place] [address]- 8482 Mar, [facility] [place] [facility] [address] [id number] [place] [address]- 3805 Mar, [facility] [place] [facility] [address] [facility] [id number], [place] [address]- 0566 Mar, [facility] [place] [facility] [address] [facility] [id number], [place] [address]- 2546 Mar, [facility] [place] [facility] [address] [id number] [place] [address]- 3239 04 Mar, 2013 [facility] [address] [id number] [place] [address]- 6651 Mar, [facility] [address] [id number] [place] [address]- 4243 Mar, [facility] [address] [id number] [place] [address]- 3314 Mar, [facility] [address] [id number] [place] [address]- 8847 Feb, [facility] [address] [id number] [place] [address]- 0846 Feb, [facility] [address] [id number] [place] [address]- 0552 Feb, [facility] [address] [id number] [place] [address]- 2924 20 Feb, 2013 [facility] [address] [id number] [place] [address]- 2283 Feb, [facility] [address] [id number] [place] [address]- 7660 19 Feb, 2013 [facility] [address] [id number] [place] [address]- 5040 15 Feb, 2013 [facility] [address] [id number] [place] [address]- 9178 14 Feb, 2013 [facility] [address] [id number] [place] [address]- 1927 14 Feb, 2013 [facility] [address] [id number] [place] [address]- 4502 13 Feb, 2013 [facility] [address] [id number] [place] [address]- 2455 13 Feb, 2013 [facility] [address] [id number] [place] [address]- 0823 Feb, [facility] [place] [facility] [address] [id number] [place] [address]- 1652 Feb, [facility] [place] [facility] [address] [id number] [place] [address]- 3871 Feb, [facility] [place] [facility] [address] [id number] [place] [address]- 4288 Feb, [facility] [place] [facility] [address] [id number] [place] [address]- 0573 Feb, [facility] [place] [facility] [address] [id number] [place] [address]- 8458 Jan, [facility] [place] [facility] [address] [id number] [place] [address]- 8474 Jan, [facility] [place] [facility] [address] [id number] [place] [address]- 8121 Jan, [facility] [place] [facility] [address] [id number] [place] [address]- 2456 Jan, [facility] [place] [facility] [address] [id number] [place] [address]- 5144 Jan, [facility] [place] [facility] [address] [id number] [place] [address]- 8860 Jan, [facility] [place] [facility] [address] [id number] [place] [address]- 2810 Jan, [facility] [place] [facility] [address] [id number], [place] [address]- 3459 Jan, [facility] [place] [facility] [address] [id number] [place] [address]- 3576 Jan, [facility] [place] [facility] [address] [id number], [place] [address]- 6135 27 Dec, 2012 [facility] [place] [facility] [address] [id number][place] 6049 20 Dec, 2012 [facility] [place] [facility] [address] [id number], [place] [address]- 7871 Dec, [facility] [place] [facility] [address] [id number] [place] [address]- 6693 10 Dec, 2012 [facility] [place] [facility] [address] [id number] [place] [address]- 8063 04 Dec, 2012 [facility] [place] [facility] [address] [id number] [place] [address]- 7805 Dec, [facility] [place] [facility] [address] [id number] [place] [address]- 1335 Nov, [facility] [place] [facility] [address] [id number] [place] [address]- 4080 Nov, [facility] [place] [facility] [address] [id number] [place] [address]- 3219 Nov, [facility] [place] [facility] [address] [id number] [place] [address]- 8705 Nov, [facility] [place] [facility] [address] [id number] [place] [address]- 0584 Nov, [facility] [place] [facility] [address] [id number] [place] [address]- 2179 Nov, [facility] [place] [facility] [address] [id number] [place] [address]- 1705 Nov, [facility] [place] [facility] [address] [id number] [place] [address]- 5468 Nov, [facility] [place] [facility] [address] [id number] [place] [address]- 1918 Nov, [facility] [place] [facility] [address] [id number] [place] [address]- 5949 Nov, [facility] [place] [facility] [address] [id number] [place] [address]- 7425 Oct, [facility] [place] [facility] [address] [id number] [place] [address]- 8643 Oct, [facility] [place] [facility] [address] [id number] [place] [address]- 0495 Oct, 2012 [facility] [place] [facility] [address] [id number] [place] [address]- 4910 Oct, [facility] [place] [facility] [address] [id number] [place] [address]- 8375 Oct, [facility] [place] [facility] [address] [id number] [place] [address]- 4858 Oct, [facility] [place] [facility] [address] [id number] [place] [address]- 0863 Oct, [facility] [place] [facility] [address] [id number] [place] [address]- 1138 Oct, [facility] [place] [facility] [address] [id number] [place] [address]- 8054 Sep, [facility] [place] [facility] [address] [id number] [place] [address]- 5306 Sep, [facility] [place] [facility] [address] [id number] [place] [address]- 0005 Sep, [facility] [place] [facility] [address] [id number] [place] [address]- 0062 Sep, [facility] [place] [facility] [address] [id number] [place] [address]- 6850 Sep, [facility] [place] [facility] [address] [id number] [place] [address]- 2411 Sep, [facility] [place] [facility] [address] [id number] [place] [address]- 2772 Sep, [facility] [place] [facility] [address] [id number] [place] [address]- 1674 Sep, [facility] [place] [facility] [address] [id number] [place] [address]- 5051 August, [facility] [place] [facility] [address] [id number] [place] [address]- 0840 August, [facility] [address] [id number] [place] [address]- 9162 August, [facility] [address] [id number] [place] [address]- 8160 August, [facility] [address] [id number] [place] [address]- 0080 August, [facility] [address] [id number] [place] [address]- 9219 Jul, [facility] [address] [id number] [place] [address]- 9987 Jul, [facility] [address] [id number] [place] [address]- 6330 Jul, [facility] [address] [id number] [place] [address]- 1770 Jul, [facility] [address] [id number] [place] [address]- 6595 Jul, [facility] [address] [id number] [place] [address]- 7031 Jun, [facility] [address] [id number] [place] [address]- 7859 18 Jun, 2012 [facility] [address] [id number] [place] [address]- 0048 15 Jun, 2012 [facility] [place] [facility] [address] [id number], [place] [address] 14 Jun, 2012 [facility] [place] [facility] [address] [id number] [place] [address] 12 Jun, 2012 [facility] [place] [facility] [address] [id number] [place] [address] 08 Jun, 2012 [facility] [place] [facility] [address] [id number] [place] [address] 08 Jun, 2012 [facility] [place] [facility] [address] [id number] [place] [address] Jun, [facility] [address] [id number] [place] [address] Jun, [facility] [address] [id number] [place] [address] May, [facility] [address] [id number] [place] [address] May, [facility] [address] [id number] [place] [address] May, [facility] [address] [id number] [place] [address] May, [facility] [address] [id number] [place] [address] Apr, [facility] [address] [id number] [place] [address] Apr, [facility] [address] [id number] [place] [address] Apr, [facility] [address] [id number] [place] [address] Apr, [facility] [address] [id number] [place] [address] Apr, [facility] [address] [id number] [place] [address] Apr, [facility] [address] [id number] [place] [address] Apr, [facility] [address] [id number] [place] [address] Mar, [facility] [address] [place] [id number] Mar, [facility] [address] [id number] [place] [address] Mar, [facility] [place] [facility] [address] [id number] [place] [address] Mar, [facility] [place] [facility] [address] [id number] [place] [address] Mar, [facility] [place] [facility] [address] [id number] [place] [address]326 Mar, [facility] [place] [facility] [address] [id number] [place] [address] Mar, [facility] [place] [facility] [address] [id number] [place] [address] Mar, [facility] [place] [facility] [address] [id number] [place] [address]- [address] Mar, [facility] [place] [facility] [address] [id number] [place] [address] Mar, [facility] [place] [facility] [address] [id number] [place] [address] Mar, [facility] [place] [facility] [address] [id number] [place] [address] Mar, [facility] [place] [facility] [address] [id number] [place] [address] Mar, [facility] [place] [facility] [address] [id number] [place] [address] Mar, [facility] [place] [facility] [address] [id number] [place] [address] Mar, [facility] [place] [facility] [address] [id number] [place] [address] 69[address] Mar, [facility] [place] [facility] [address] [id number] [place] [address] Mar, [facility] [place] [facility] [address] [id number] [place] [address]26 Feb, [facility] [place] [facility] [address] [id number] [place] [address] Feb, [facility] [place] [facility] [address] [id number] [place] [address] Feb, [facility] [place] [facility] [address] [id number] [place] [address] Feb, [facility] [place] [facility] [address] [id number] [place] [address] 47[address] Feb, [facility] [place] [facility] [address] [id number] [place] [address]- [address]21 Feb, [facility] [place] [facility] [address] [id number] [place] [address]- 59[address] Feb, [facility] [place] [facility] [address] [id number] [place] [address] 8710 Feb, [facility] [place] [facility] [address] [id number] [place] [address] Feb, [facility] [place] [facility] [address] [id number], [place] [address] Feb, [facility] [place] [facility] [address] [id number] [place] [address]- 74[address] Feb, [facility] [place] [facility] [address] [id number], [place] [address] Feb, [facility] [place] [facility] [address] [id number], [place] [address] Feb, [facility] [place] [facility] [address] [id number], [place] [address] Feb, [facility] [place] [facility] [address] [id number] [place] [address] Feb, [facility] [place] [facility] [address] [id number], [place] [address] Feb, [facility] [place] [facility] [address] [id number] [place] [address]- 9668 Jan, [facility] [place] [facility] [address] [id number] [place] [address]48 Jan, 2011 [facility] [place] [facility] [address] [id number] [place] [address]- [address]90 Jan, 2011 [facility] [place] [facility] [address] [id number] [place] [address]- [address] Jan, [facility] [place] [facility] [address] [id number] [place] [address] 8777 Jan, 2011 [facility] [place] [facility] [address] [id number] [place] [address] 6289 Jan, [facility] [place] [facility] [address] [id number] [place] [address]- 9332 Jan, [facility] [place] [facility] [address] [id number] [place] [address]- 2916 Jan, [facility] [place] [facility] [address] [id number] [place] [address]- 7[address] Jan, [facility] [place] [facility] [address] [id number] [place] [address]- 3337 Jan, [facility] [place] [facility] [address] [id number] [place] [address]- 7815 Jan, [facility] [place] [facility] [address] [id number] [place] [address]- 3985 Jan, [facility] [place] [facility] [address] [id number] [place] [address]- 4745 Jan, [facility] [place] [facility] [address] [id number], [place] [address] Jan, [facility] [place] [facility] [address] [id number] [place] [address]- [address]00 08 Jan, 2012 [facility] [place] [facility] [address] [id number] [place] [address]- 6682 Jan, [facility] [place] [facility] [address] [id number], [place] [address] Jan, [facility] [place] [facility] [address] [id number] [place] [address]- 2541 21 Dec, 2011 [facility] [place] [facility] [address] [id number] [place] [address]- 2316 20 Dec, 2011 [facility] [place] [facility] [address] [id number] [place] [address] 2546 18 Dec, 2011 [facility] [place] [facility] [address] [id number] [place] [address] 2546 18 Dec, 2011 [facility] [place] [facility] [address] [id number] [place] [address] 2546 10 Dec, 2011 [facility] [place] [facility] [address] [id number] [place] [address]- 2986 10 Dec, 2011 [facility] [place] [facility] [address] [id number] [place] [address] 10 Dec, 2011 [facility] [place] [facility] [address] [id number] [place] [address] 07 Dec, 2011 [facility] [place] [facility] [address] [id number] [place] [address] 30 Nov, 2011 [facility] [place] [facility] [address] [id number] [place] [address] Nov, [facility] [place] [facility] [address] [id number] [place] [address] 24 Nov, 2011 [facility] [place] [facility] [address] [id number] [place] [address] Nov, [facility] [place] [facility] [address] [id number] [place] [address] Nov, [facility] [place] [facility] [address] [id number] [place] [address] 16 Nov, 2011 [facility] [place] [facility] [address] [id number] [place] [address] 30 Oct, 2011 [facility] [place] [facility] [address] [id number] [place] [address] 30 Oct, 2011 [facility] [place] [facility] [address] [id number] [place] [address] Oct, [facility] [place] [facility] [address] [id number] [place] [address] Oct, [facility] [place] [facility] [address] [id number] [place] [address] Oct, [facility] [place] [facility] [address] [id number] [place] [address] Oct, [facility] [place] [facility] [address] [id number] [place] [address] Oct, [facility] [place] [facility] [address] [id number] [place] [address] Sep, [facility] [place] [facility] [address] [id number] [place] [address] Sep, [facility] [place] [facility] [address] [id number] [place] [address] Sep, [facility] [place] [facility] [address] [id number] [place] [address] 39[address] Sep, [facility] [place] [facility] [address] [id number] [place] [address] Sep, [facility] [place] [facility] [address] [id number] [place] [address] 1469 15 Sep, 2011 [facility] [place] [facility] [address] [id number] [place] [address] 28[address] 14 Sep, 2011 [facility] [place] [facility] [address] [id number] [place] [address] 11 Sep, 2011 [facility] [place] [facility] [address] [id number] [place] [address] 1007 05 Sep, 2011 [facility] [place] [facility] [address] [id number] [place] [address] 114[address] 04 Sep, 2011 [facility] [place] [facility] [address] [id number] [place] [address] August, [facility] [address] [id number] [place] [address] August, [facility] [address] [id number] [place] [address] August, [facility] [address] [id number] [place] [address] August, [facility] [address] [id number] [place] [address] 29[address] August, [facility] [address] [id number] [place] [address] 15[address] Jul, [facility] [address] [id number] [place] [address]702 Jul, [facility] [address] [id number] [place] [address] 27[address] Jul, [facility] [address] [id number] [place] [address] Jul, [facility] [address] [id number] [place] [address] Jul, [facility] [address] [id number] [place] [address] 7[address] Jul, [facility] [address] [id number] [place] [address] 1696 Jul, [facility] [address] [id number] [place] [address] 6[address] Jun, [facility] [address] [id number] [place] [address] Jun, [facility] [address] [id number] [place] [address] Jun, [facility] [address] [id number] [place] [address] 8735 Jun, [facility] [place] [facility] [address] [id number] [place] [address] Jun, [facility] [place] [facility] [address] [id number] [place] [address] 2086 May, [facility] [place] [facility] [address] [id number] [place] [address] May, [facility] [place] [facility] [address] [id number] [place] [address] 9032 May, [facility] [place] [facility] [address] [id number] [place] [address] May, [facility] [place] [facility] [address] [id number] [place] [address] 4917 May, [facility] [place] [facility] [address] [facility] [id number] [place] [address] 6[address] May, [facility] [place] [facility] [address] [id number], [place] [address] Apr, [facility] [place] [facility] [address] [id number] [place] [address] 8565 Mar, [facility] [place] [facility] [address] [facility] [id number] [place] [address] 3910 Feb, [facility] [place] [facility] [address] [facility] [id number][place] [address] Feb, [facility] [place] [facility] [address] [id number], [place] [address] Feb, [facility] [place] [facility] [address] [id number] [place] [address] 4410 Feb, [facility] [place] [facility] [address] [facility] [id number] [place] [address]- 5353 Jan, [facility] [place] [facility] [address] [facility] [id number] [place] [address]- 0357 Jan, [facility] [place] [facility] [address] [id number] [place] [address] 8180 26 Jan, 2011 [facility] [address] [id number] [place] [address] 24 Jan, 2011 [facility] [place] [facility] [address] [id number] [place] [address] 2546 14 Jan, 2011 [facility] [address] [id number] [place] [address]- 0746 19 Dec, 2010 [facility] [place] [facility] [address] [id number] [place] [address] 2546 20 Oct, 2010 [facility] [address] [id number] [place] [address] August, [facility] [address] [id number] [place] [address]- 4506 29 Mar, 2010 [facility] [address] [id number] [place] [address]- 2766 27 Mar, 2010 [facility] [address] [id number] [place] [address]- 4491 16 Mar, 2010 [facility] [place] [facility] [address] [id number] [place] [address] 2540 15 Mar, 2010 [facility] [address] [id number] [place] [address]- 2544 15 Mar, 2010 [facility] [place] [facility] [address] [id number] [place] [address] 2546 08 Mar, 2010 [facility] [place] [facility] [address] [id number] [place] [address] 254 03 Mar, 2010 [facility] [place] [facility] [address] [id number] [place] [address] 2543 24 Feb, 2010 [facility] [place] [facility] [address] [id number] [place] [address]- 2541 24 Feb, 2010 [facility] [place] [facility] [address] [id number] [place] [address] 2542 15 Feb, 2010 [facility] [place] [facility] [address] [id number] [place] [address]- 8799 19 Jan, 2010 [facility] [place] [facility] [address] [id number] [place] [address]- 9321 Jan, [facility] [place] [facility] [address] [id number] [place] [address] 18 Jan, 2010 [facility] [place] [facility] [address] [id number] [place] [address]- 8712 Nov, [facility] [place] [facility] [address] [id number] [place] [address]- 9006 14 Sep, 2009 [facility] [place] [facility] [address] [id number] [place] [address]- 3246 August, [facility] [address] [facility] [id number] [place] [address]- 0011 Mar, [facility] [place] [facility] [address] [id number], [place] [address] 113[address] Mar, [facility] [place] [facility] [address] [id number] [place] [address]- 9000 17 Feb, 2009 [facility] [place] [facility] [address] [id number], [place] [address] 390[address] Feb, [facility] [place] [facility] [address] [facility] [id number], [place] [address]- 1557 10 Feb, 2009 [facility] [place] [facility] [address] [id number], [place] [address]- 3759 10 Feb, 2009 [facility] [place] [facility] [address] [id number], [place] [address]- 0720 06 Feb, 2009 [facility] [place] [facility] [address] [id number], [place] [address]- 5364 27 Jan, 2009 [facility] [place] [facility] [address] [id number], [place] [address]- 9031 Jan, [facility] [place] [facility] [address] [id number], [place] [address]- [address] Jan, [facility] [address] [facility] [id number], [place] [address] 2546 Jan, [facility] [id number] [address] Nov, [facility] [id number], [place] [address]- [address] Sep, [place] [id number] [place] [address] August, [facility] [address] [id number], [place] [address] 2546 Jul, [place] [id number], [place] [address] 2546 May, IMMUNIZATIONS Vaccine Route Administration Date Status SOLUMEDROL (UP TO 125 MG) IM Intramuscular June 19, 2017 Administered SOCIAL HISTORY Never Assessed REASON FOR VISIT [facility] f/u. Had bladder surgery on Friday, fell at home on Friday, went to ER on Friday. Has walking boot on right foot, tore 2 ligaments in ankle. , PHQ2, AUDIT-C, Has bad cough that wants something for. CbrumbackRN PLAN OF CARE VITAL SIGNS Height 64 in 2017-06-19 Weight 157.6 lbs 2017-06-19 Temperature 98.7 degrees Fahrenheit 2017-06-19 Heart Rate 84 bpm 2017-06-19 Respiratory Rate 20 2017-06-19 BMI 27.05 kg/m2 2017-06-19 Blood pressure systolic 94 mmHg 2017-06-19 Blood pressure diastolic 58 mmHg 2017-06-19 MEDICATIONS Medication Instructions Dosage Frequency Start Date End Date Duration Status Diltiazem HCl ER 240 MG Orally Once a day 1 capsule 24h Active Ropinirole HCl 2 MG TAKE 1 TABLET ONE TIME DAILY AT BEDTIME 90 Active Fluticasone Propionate 50 MCG/ACT Nasally 2 times a day 2 sprays in each nostril 12h 30 days Active Benefiber - Active Albuterol Sulfate 2.5 mg /3 mL (0.083 %) 1 Each by Inhalation route every 4 hours for cough and wheeze PRN for wheezing or cough Jun, Not-Taking Lamictal 25 MG Orally every night 3 tablets Apr, 30 days Not -Taking Calcium Active Nitroglycerin 0.4 MG Active Symbicort 160-4.5 MCG/ACT INHALE 2 PUFFS TWICE DAILY, IN THE MORNING AND IN THE EVENING 90 Active Ventolin HFA 108 (90 Base) MCG/ACT INHALE 2 PUFFS EVERY 4 HOURS NEEDED 16 Active Gabapentin 600 MG TAKE 1 TABLET THREE TIMES DAILY 90 Active Simvastatin 20mg Orally Once a day 1 tablet in the evening 24h Active Pantoprazole Sodium 40 MG Orally 2 times a day 1 tablet 12h Active Spiriva HandiHaler 18 MCG Inhalation Once a day 1 capsule 24h Active Mupirocin 2 % Externally two times a day 1 application to affected area 12h Active Magnesium Active Vitamin D 50,000 Orally once a week 1 tablet Active Baclofen 20 MG Orally 3 times a day 1 tablet with food or milk 8h May, 30 day(s) Active Singulair 10 MG Orally Once a day take 1 tablet (10 mg) by oral route once daily in the evening 24h Oct, Active Oxygen 5 inhalation all the time Active Eliquis 5 MG Orally 2 times a day 12h Active Namenda 10 MG TAKE 1 TABLET EVERY DAY Active Toprol XL 25 MG Orally Once a day 1 tablet 24h Active Promethazine-Codeine 6.25-10 MG/5ML Orally every 6 hrs 5 ml as needed 6h Jun, Active Primidone 250 mg Orally Three times a day 1 tablet 8h 90 days Active Zofran ODT 4 MG Orally every 4 hrs 1 tablet on the tongue and allow to dissolve 4h Jul, 1 days Active HydrOXYzine HCl 25 MG Orally three times a day as needed 1 tablet Active Cetirizine HCl 10 MG Orally Once a day 1 tablet as needed 24h Not- Taking Alendronate Sodium 70 MG TAKE 1 TABLET EVERY WEEK Active Lomotil 2.5-0.025 mg Orally Four times a day TWO TABLETS 6h 30 Active Melatonin 5 MG Orally Once a day 1 tablet at bedtime as needed with food 24h Jun, 30 day(s) Active Omeprazole 40 mg Orally Once a day 1 capsule 24h Active Trospium Chloride 20 mg Orally Once a day 1 tablet at bedtime on an empty stomach 24h Active Abilify 5 MG Orally Once a day 1 tablet 24h Active Welchol 625 MG Orally twice a day 2 tablets 12h Active Remeron 45 MG Orally Once a day at bedtime 1 tablet Feb, 30 days Not-Taking Xifaxan 550 MG Orally Three times a day 1 tablet 8h Active RESULTS No Results PROCEDURES Procedure Date Ordered Result Body Site [facility] VISIT ESTABLISHED PATIENT June 19, 2017 THER/PROPH/DIAG INJ, SC/IM June 19, 2017 SOLUMEDROL (UP TO 125 MG) June 19, 2017 INSTRUCTIONS MEDICATIONS ADMINISTERED No Known Medications [...] Knee Surgery 07/16/17 Hospitalization History [facility] [place]- left hand/wrist swelling 10/09/2017
--- OUTSIDE RECORDS SUMMARY | 2018-01-01 12:41 | XMS REPORT ---
Author Author FAHAD CLEMENT [facility] Address [address] [place] [address] Care Team Providers Care Production Maintenance Technician Name Role Phone FAHAD CLEMENT Unavailable PROBLEMS Type Condition ICD9-CM Code VZW58-RX Code Onset Dates Condition Status SNOMED Code Problem History of common bile duct surgery Z98.89 Active 037557594 Problem Barretts esophagus K22.70 Active 693133481 Problem 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 Active 57339906 Problem Colon polyp K63.5 Active 29685510 Problem Bilateral low back pain without sciatica M54.5 Active 648575749 Problem Screening breast examination Z12.39 Active 257467295 Problem Postmenopausal Z78.0 Active 09363085 Problem Osteopenia M85.80 Active 436123753 Problem Cigarette nicotine dependence without complication F17.210 Active 38182359 Problem Type 2 diabetes mellitus with diabetic peripheral angiopathy without gangrene E11.51 Active 214834334 Problem Vascular dementia without behavioral disturbance F01.50 Active 47249771653358818 Problem Unspecified atherosclerosis of sycuan arteries of extremities, unspecified extremity I70.209 Active 525332558214252 Problem Arthritis M19.90 Active 2104823 Problem Chronic atrial fibrillation I48.2 Active 339381573 Problem Chronic obstructive pulmonary disease with acute lower respiratory infection J44.0 Active 408338950 Problem Other chronic pancreatitis K86.1 Active 484063689 Problem Stress incontinence of urine N39.3 Active 62229982 Problem Controlled type 2 diabetes mellitus without complication, without long -term current use of insulin E11.9 Active 228659294 Problem Unspecified psychosis F29 Active 89596359 Problem Xeroderma Q80.9 Active 32661995 Problem COPD (chronic obstructive pulmonary disease) J44.9 Active 95946534 Problem Dementia without behavioral disturbance, unspecified dementia type F03.90 Active 64805522 Problem Gastroparesis K31.84 Active 870789010 Problem Type 2 diabetes mellitus with diabetic neuropathy, without long-term current use of insulin E11.40 Active 54740128 Problem Osteoporosis M81.0 Active 13007719 Problem Atherosclerosis of sycuan artery of both lower extremities with intermittent claudication I70.213 Active 700817387416407 Problem Hyperlipidemia E78.5 Active 49716800 Problem Diabetic polyneuropathy associated with type 2 diabetes mellitus E11.42 Active 10024022 Problem Essential tremor G25.0 Active 61663459 Problem 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 Active 0391218659121 Problem Generalized anxiety disorder F41.1 Active 992282755 Problem Gastroesophageal reflux disease, esophagitis presence not specified K21.9 Active 428976260 Problem Coronary artery disease involving sycuan coronary artery of sycuan heart with other form of angina pectoris I25.118 Active 2312052110108 Problem Postconcussion syndrome F07.81 Active 88487635 Problem Chronic pain syndrome G89.4 Active 176480039 Problem Migraine without aura and without status migrainosus, not intractable G43.009 Active 379075346 Problem Paroxysmal atrial fibrillation I48.0 Active 467256087 Problem Migraine without aura and with status migrainosus, not intractable G43.001 Active 564755050 Problem Cervicalgia M54.2 Active 5259493284062 Problem Acute exacerbation of chronic obstructive pulmonary disease (COPD) J44.1 Active 230068843 Problem Major depressive disorder, recurrent episode, moderate F33.1 Active 816161572 Problem Crohn''s disease without complication, unspecified gastrointestinal tract location K50.90 Active 66982232 Problem Chronic fatigue R53.82 Active 49179738 Problem Bipolar affective disorder, currently depressed, moderate F31.32 Active 549418170 ALLERGIES Substance Reaction Event Type Date Status Penicillin V Potassium rash Drug Allergy Jun, Active Neosporin rash Drug Allergy Jun, Active Ibuprofen rash Drug Allergy Jun, Active Glipizide hives, nausea Drug Allergy Jun, Active ENCOUNTERS Encounter Location Date Diagnosis [facility] [id number] [address] Nov, [facility] [id number] [address] Nov, [facility] [id number] [address] Oct, [facility] [address] [address] Oct, [facility] [address] [address] Oct, [facility] [address] [address] Oct, Edema of both legs R60.0 [facility] [address] [address]20 Oct, [facility] [address] [address] 3915 Sep, [facility] [address] [address] 33[address] Sep, [facility] [address] [address] Sep, [facility] [address] [address] Sep, Encounter for well woman exam with routine gynecological exam Z01.419 ; Screening for STDs (sexually transmitted diseases) Z11.3 ; Screening breast examination Z12.31 and Overweight (BMI 25.0-29.9) E66.3 [facility] [address] [address] Sep, [facility] [address] [address]23 Sep, [facility] [id number] [address] 7860 Sep, [facility] [address] [address] August, [facility] [id number] [address] 9015 August, [facility] [id number] [place] [address] 54064- 5095 August, Type 2 diabetes mellitus with diabetic neuropathy, without long-term current use of insulin E11.40 and Sprain of right ankle, unspecified ligament, initial encounter S93.401A [facility] [id number] [place] [address] 34993- 6752 August, [facility] [id number] [place] [address] 00057- 8481 August, [facility] [id number] [place] [address] 22008- 4222 August, [facility] [address] [address]- 0882 August, Gastroesophageal reflux disease, esophagitis presence not specified K21.9 [facility] [id number] [place] [address] 05944- 4302 August, [facility] [id number] [place] [address] 42569- 5770 August, [facility] [id number] [place] [address] 68858- 4883 August, [facility] [id number] [place] [address] 77753- 0471 August, Type 2 diabetes mellitus with diabetic neuropathy, without long-term current use of insulin E11.40 and Elevated liver enzymes R74.8 [facility] [id number] [place] [address] 90938- 1091 Jul, [facility] [id number] [place] [address] 56150- 3148 Jul, Cough R05 [facility] [id number] [place] [address] 35341- 2024 Jul, [facility] [id number] [place] [address] 66422- 8124 Jul, [facility] [id number] [place] [address] 73187- 9218 Jul, Bipolar affective disorder, currently depressed, moderate F31.32 ; Vascular dementia without behavioral disturbance F01.50 and Generalized anxiety disorder F41.1 [facility] [id number] [place] [address] 65300- 8270 Jul, [facility] [address] 34171- 6705 Jul, Type 2 diabetes mellitus with diabetic neuropathy, without long-term current use of insulin E11.40 and Elevated liver enzymes R74.8 [facility] [address] 33750- 5515 Jul, [facility] [address] 88229- 3478 Jul, [facility] [address] 34725- 5805 Jul, [facility] [address] 14215- 7903 Jul, Post-menopausal Z78.0 [facility] [address] 30742- 6222 Jul, Stress incontinence of urine N39.3 [facility] [id number] [place] [address] 10402- 4197 Jul, [facility] [address] 99212- 0642 Jul, [facility] [id number] [place] [address] 90247- 3434 Jul, Stress incontinence of urine N39.3 and Cough R05 [facility] [id number] [place] [address] 83586- 5551 Jul, [facility] [id number] [place] [address] 59966- 2163 Jul, [facility] [address] 78606- 2316 Jul, [facility] [id number] [place] [address] Jul, Gastroesophageal reflux disease, esophagitis presence not specified K21.9 [facility] [id number] [place] [address] 91009- 6233 29 Jun, 2017 Diabetic polyneuropathy associated with type 2 diabetes mellitus E11.42 [facility] [id number] [place] [address] Jun, Diabetic polyneuropathy associated with type 2 diabetes mellitus E11.42 ; Coronary artery disease involving sycuan coronary artery of sycuan heart with other form of angina pectoris I25.118 and Paroxysmal atrial fibrillation I48.0 [facility] [id number] [place] [address] 63663- 6906 Jun, [facility] [id number] [place] [address] 36997- 0103 Jun, [facility] [id number] [place] [address] 70676 2545 Jun, Gastroenteritis K52.9 [facility] [id number] [place] [address] 81231 2546 Jun, Gastroenteritis K52.9 [facility] [id number] [place] [address] 26455 2547 Jun, [facility] [id number] [place] [address] 33458 2542 Jun, [facility] [address], [place] [address] 8531 Jun, Sprain of right ankle, unspecified ligament, initial encounter S93.401A ; Type 2 diabetes mellitus with diabetic neuropathy, without long-term current use of insulin E11.40 ; Atherosclerosis of sycuan artery of both lower extremities with intermittent claudication I70.213 ; 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 ; Chronic atrial fibrillation I48.2 and Crohn''s disease without complication, unspecified gastrointestinal tract location K50.90 [facility] [id number] [place] [address] 27350 -1474 17 Jun, 2017 Chronic obstructive pulmonary disease with acute lower respiratory infection J44.0 and Cough R05 [facility] [id number] [place] [address] 26341- 6545 Jun, [facility] [address] 62415- 3702 Jun, Coughing R05 ; Unspecified atherosclerosis of sycuan arteries of extremities, unspecified extremity I70.209 ; Type 2 diabetes mellitus with diabetic peripheral angiopathy without gangrene E11.51 ; Crohn''s disease without complication, unspecified gastrointestinal tract location K50.90 ; Other chronic pancreatitis K86.1 and Chronic atrial fibrillation I48.2 [facility] [id number] [place] [address] 28736 -2755 Jun, [facility] [id number] [place] [address] 37479- 2712 Jun, Bipolar affective disorder, currently depressed, moderate F31.32 ; Vascular dementia without behavioral disturbance F01.50 and Generalized anxiety disorder F41.1 [facility] [id number] [place] [address] 18461- 5148 May, Generalized anxiety disorder F41.1 [facility] [id number] [place] [address] 00843- 9062 May, [facility] [id number] [place] [address] 84348- 7145 May, [facility] [id number] [place] [address] 24964- 6425 May, Coughing R05 [facility] [id number] [place] [address] 86231- 5751 May, [facility] [id number] [place] [address] 54686- 8113 May, Bipolar affective disorder, currently depressed, moderate F31.32 ; Vascular dementia without behavioral disturbance F01.50 and Generalized anxiety disorder F41.1 [facility] [id number] [place] [address] 52679- 7722 Apr, Generalized anxiety disorder F41.1 [facility] [id number] [place] [address] 89288- 9093 Apr, [place] [address] 20745- 1266 Apr, Vascular dementia without behavioral disturbance F01.50 ; Generalized anxiety disorder F41.1 and Bipolar affective disorder, currently depressed, moderate F31.32 [facility] [id number] [place] [address] 39165- 1034 Apr, Generalized anxiety disorder F41.1 [facility] [id number] [place] [address] 87676 -4564 Apr, Cough R05 and Acute exacerbation of chronic obstructive pulmonary disease (COPD) J44.1 [facility] [id number] [place] [address] 33847- 6521 Apr, [facility] [id number] [place] [address] 30461 -7065 Mar, Cough R05 and Cigarette nicotine dependence without complication F17.210 [facility] [id number] [place] [address] 29020- 0942 Mar, [facility] [id number] [place] [address] 68325- 8693 Feb, Generalized anxiety disorder F41.1 ; Major depressive disorder, recurrent episode, moderate F33.1 ; Vascular dementia without behavioral disturbance F01.50 and Unspecified psychosis F29 [facility] [id number] [place] [address] 96962- 0520 Feb, [facility] [id number] [place] [address] 95879- 7590 Feb, [facility] [id number] [place] [address] 84570- 7482 Feb, Generalized anxiety disorder F41.1 [place] [address] 41056- 7635 Feb, Generalized anxiety disorder F41.1 [place] [address] 97840- 9406 Feb, Dizziness R42 ; Chronic fatigue R53.82 ; Postconcussion syndrome F07.81 ; Fall, initial encounter W19.XXXA and Disorientation R41.0 [place] [address] 10247- 3678 Feb, Postconcussion syndrome F07.81 ; Injury of head, initial encounter S09.90XA ; Fall, initial encounter W19.XXXA ; Disorientation R41.0 and Acute cystitis with hematuria N30.01 [place] [address] 85291- 3955 Jan, Gastroesophageal reflux disease, esophagitis presence not specified K21.9 ; Post-menopausal Z78.0 and Migraine without aura and without status migrainosus, not intractable G43.009 [facility] [id number] [place] [address] 41431- 9154 Jan, [facility] [id number] [place] [address] 19334- 7015 Jan, Generalized anxiety disorder F41.1 ; Major depressive disorder, recurrent episode, moderate F33.1 ; Vascular dementia without behavioral disturbance F01.50 and Unspecified psychosis F29 [facility] [id number] [place] [address] 79558- 0404 Jan, Pneumonia of left lower lobe due to infectious organism J18.1 [facility] [id number] [place] [address] 47542- 4711 Jan, Migraine without aura and with status migrainosus, not intractable G43.001 [facility] [id number] [place] [address] 39068 -7167 Jan, Migraine without aura and without status migrainosus, not intractable G43.009 [facility] [id number] [place] [address] 54750- 6327 Dec, Hematoma T14.8 [facility] [id number] [place] [address] 04805- 9288 Dec, [facility] [id number] [place] [address] 05129 -7156 Nov, Fatigue, unspecified type R53.83 [place] [facility] [address] 25697- 9669 Nov, Scabies B86 and Coronary artery disease involving sycuan coronary artery of sycuan heart with other form of angina pectoris I25.118 [place] [address] 23499- 1468 Nov, [facility] [id number] [place] [address] 21461- 8967 Nov, [facility] [address] 28675- 6683 Oct, [facility] [id number] [place] [address] 15086- 8474 Oct, Generalized anxiety disorder F41.1 and Major depressive disorder, recurrent episode, moderate F33.1 [facility] [id number] [place] [address] 37040- 2585 Oct, Cramp of both lower extremities R25.2 [facility] [facility] [id number] [place] [address] 97638- 5163 Oct, Leg cramps R25.2 [facility] [facility] [id number] [place] [address] 79284- 4315 Oct, Chronic pain syndrome G89.4 [facility] [facility] [id number] [place] [address] 02251- 8287 17 Oct, 2016 [facility] [id number] [place] [address] 51456- 9247 14 Oct, 2016 [place] [id number] [place] [address] 52703- 5467 Oct, Routine gynecological examination Z01.419 and Screening for breast cancer Z12.31 [facility] [id number] [place] [address] 59842- 5444 28 Sep, 2016 Diarrhea R19.7 [facility] [facility] [id number] [place] [address] 28949- 8639 Sep, Back pain M54.9 [facility] [id number] [place] [address] 82932- 5321 Sep, [place] [facility] [id number] [place] [address] 45845- 7078 Sep, [facility] [id number] [place] [address] 38781 -9693 August, Xeroderma Q80.9 [place] [id number] [place] [address] 14947- 8302 August, Dementia without behavioral disturbance, unspecified dementia type F03.90 [facility] [facility] [id number] [place] [address] 71778- 3726 August, Chronic pain syndrome G89.4 [facility] [facility] [id number] [place] [address] 36542- 7359 August, [facility] [id number] [place] [address] 23037- 5121 August, Hyperlipidemia E78.5 ; Other fatigue R53.83 and Other specified hypotension I95.89 [facility] [id number] [place] [address] 36823 -3799 August, Dysuria R30.0 ; Other fatigue R53.83 and Other specified hypotension I95.89 [place] [id number] [place] [address] 53990- 1312 August, [facility] [address] 07720- 8536 Jul, Pain in left knee M25.562 and Gastroenteritis K52.9 [facility] [address] 58375- 9232 Jul, [facility] [address] 16908- 2120 Jul, Diarrhea R19.7 [facility] [address] 58195 -3845 Jul, Spider bite, accidental or unintentional, initial encounter T63.301A [facility] [address] 14412- 7863 Jul, Primary osteoarthritis of right knee M17.11 and Arthritis M19.90 [facility] [address] 39045- 6771 Jul, Generalized anxiety disorder F41.1 and Major depressive disorder, recurrent episode, moderate F33.1 [facility] [address] 35193- 3120 Jul, Type 2 diabetes mellitus with diabetic polyneuropathy E11.42 and Temporal headache R51 [facility] [id number] [place] [address] 46897- 8074 Jul, Back pain M54.9 [facility] [id number] [place] [address] 74748- 9384 Jul, [facility] [address] 67943- 9879 Jul, [facility] [id number] [place] [address] 91015- 2096 Jun, Nausea R11.0 [facility] [address] 29317 -1100 Jun, Acute suppurative otitis media of both ears without spontaneous rupture of tympanic membranes, recurrence not specified H66.003 and COPD exacerbation J44.1 [place] [address] 75832- 6992 Jun, Generalized anxiety disorder F41.1 [place] [address] 00434- 7888 16 Jun, 2016 [facility] [address] 12994 -9986 Jun, [facility] [address] 01977 -5904 Jun, Shortness of breath R06.02 and COPD exacerbation J44.1 [place] [address] 69206- 6701 Jun, Eczema, unspecified type L30.9 [place] [address] 20398- 3544 Jun, [place] [address] 89298- 7533 May, [place] [address] 28632- 4356 May, Muscle cramping R25.2 [place] [address] 37550- 1895 May, [place] [address] 36911- 9391 Apr, Diarrhea R19.7 [place] [address] 08919- 6874 Apr, [place] [address] 91002- 2631 Apr, Chronic pain syndrome G89.4 [place] [address] 08000- 1223 Apr, Cramp of both lower extremities R25.2 and Vascular dementia without behavioral disturbance F01.50 [place] [address] 00839- 3795 Apr, Type 2 diabetes mellitus with diabetic polyneuropathy E11.42 and Cigarette nicotine dependence without complication F17.210 [place] [address] 95643- 9620 Mar, Generalized anxiety disorder F41.1 [place] [address] 37374- 9526 Feb, Generalized anxiety disorder F41.1 and Major depressive disorder, recurrent episode, moderate F33.1 [place] [address] 37629- 8480 Feb, [facility] [address] 61473 -5584 Feb, Dysuria R30.0 and Acute cystitis with hematuria N30.01 [place] [address] 99998- 8944 Jan, [place] [address] 57557- 6898 Jan, [place] [address] 12016- 4249 Jan, [place] [address] 30983- 8040 Jan, [facility] [address] 69843 -9247 Jan, Wasp sting, accidental or unintentional, initial encounter T63.461A [place] [address] 04854- 0493 Jan, Encounter for immunization Z23 [place] [address] [address]- 4326 Jan, [facility] [id number], [place] [address] 6[address] Jan, [facility] [id number] [place] [address] 85486- 4399 28 Dec, 2015 Generalized anxiety disorder F41.1 and Major depressive disorder, recurrent episode, moderate F33.1 [facility] [id number] [place] [address] 19150- 1915 21 Dec, 2015 Routine gynecological examination Z01.419 ; Postmenopausal Z78.0 ; Screening breast examination Z12.39 ; Osteopenia M85.80 and Breast cancer screening Z12.39 [facility] [id number] [place] [address] 71553- 7547 20 Dec, 2015 [facility] [id number] [place] [address] 70333- 6946 19 Dec, 2015 [facility] [id number] [place] [address] 39812- 4002 16 Dec, 2015 [facility] [id number] [place] [address] 97454- 7420 16 Dec, 2015 [facility] [id number] [place] [address] 37268- 6916 14 Dec, 2015 [facility] [id number] [place] [address] 15062- 5996 Dec, [facility] [id number] [place] [address] 00496- 4031 Nov, [facility] [id number], [place] [address] Nov, Cough R05 ; Other viral agents as the cause of diseases classified elsewhere B97.89 and Acute upper respiratory infection, unspecified J06.9 [facility] [id number], [place] [address] 6557 Nov, [facility] [id number] [place] [address] 68079- 6779 Nov, [facility] [id number] [address]- 2112 Nov, [facility] [id number] [place] [address] 73342- 1785 Nov, [facility] [id number], [place] [address]- 8481 Nov, [facility] [id number] [place] [address] 71056- 0273 Oct, [facility] [id number] [place] [address] 41246- 5950 Oct, [facility] [id number] [place] [address] 02135- 0415 Oct, [facility] [id number] [place] [address] 27994- 3312 Oct, Chronic pain syndrome G89.4 [facility] [id number] [place] [address] 13843- 3534 Sep, Generalized anxiety disorder F41.1 and Major depressive disorder, recurrent episode, moderate F33.1 [facility] [id number], [place] [address]- 9466 Sep, [facility] [id number], [place] [address]- 3339 Sep, [facility] [id number] [place] [address] 12364- 0483 14 Sep, 2015 Generalized anxiety disorder F41.1 [facility] [address], [place] [address] 9413 13 Sep, 2015 Cramp of both lower extremities R25.2 and Cervicalgia M54.2 [facility] [address], [place] [address]- 9266 06 Sep, 2015 Generalized anxiety disorder F41.1 [facility] [id number] [place] [address] 52817- 8955 Sep, [facility] [id number] [place] [address] 16556 -5585 August, Rash R21 ; Itching L29.9 and Allergic response, subsequent encounter T78.40XD [facility] [id number] [place] [address] 80582- 5234 August, Primary insomnia F51.01 [facility] [id number] [place] [address] 81325 -2164 August, Rash R21 ; Itching L29.9 and Allergic response, initial encounter T78.40XA [place] [id number] [place] [address] 21336- 1009 August, [place] [address] [id number] [place] [address] 28314- 7637 August, Cramp of both lower extremities R25.2 [place] [address] [id number] [place] [address] 39031- 2368 August, Back pain M54.9 [place] [address] [id number] [place] [address] 01226- 3213 August, [facility] [id number] [place] [address] 77422- 6029 August, [facility] [id number] [place] [address] 05422 -4923 August, Cramp of both lower extremities R25.2 [place] [address] [id number] [place] [address] 86873- 6662 August, [place] [address] [address] [id number] [place] [address] 14556- 7061 August, Syncope R55 ; Paroxysmal atrial fibrillation I48.0 ; Dementia without behavioral disturbance, unspecified dementia type F03.90 and Chronic pain syndrome G89.4 [place] [address] [id number] [place] [address] 52335- 1167 August, Type 2 diabetes mellitus with diabetic polyneuropathy E11.42 and Syncope R55 [facility] [id number] [place] [address] 73434- 0977 Jul, [facility] [id number] [place] [address] 54297- 2827 Jul, [facility] [id number] [place] [address] 78998- 1686 Jul, [facility] [id number] [place] [address] 88682- 1539 Jul, [facility] [id number] [place] [address] 56258- 9141 Jul, [facility] [id number] [place] [address] 62280- 8224 Jul, UTI (urinary tract infection) N39.0 [facility] [id number] [place] [address] 46827- 5600 Jul, [facility] [id number] [place] [address] 09873- 1207 Jul, Major depressive disorder, recurrent episode, moderate F33.1 and Generalized anxiety disorder F41.1 [facility] [id number] [place] [address] 52614- 0581 Jul, Generalized anxiety disorder F41.1 [facility] [id number] [place] [address] 14210- 0891 Jul, Diarrhea R19.7 [facility] [id number] [place] [address] 50851- 1124 Jul, [facility] [address] [address] [id number] [place] [address] 98174- 4743 Jun, [facility] [id number] [place] [address] 48462- 3896 Jun, Eczema L30.9 [facility] [id number] [address]- 5828 Jun, [facility] [id number], [place] [address]- 7778 Jun, COPD (chronic obstructive pulmonary disease) J44.9 [facility] [id number], [place] [address]- 8427 Jun, [facility] [address] [id number] [place] [address] 43513- 8995 Jun, Major depressive disorder, recurrent episode, moderate F33.1 and Generalized anxiety disorder F41.1 [facility] [id number] [place] [address] 82562- 2244 May, [facility] [id number] [place] [address] 47126- 8054 May, UTI (urinary tract infection) N39.0 [facility] [id number], [place] [address]- 6783 May, [facility] [id number], [place] [address]- 6992 May, [facility] [id number], [place] [address]- 2386 May, [facility] [id number], [place] [address]- 6268 May, [facility] [id number], [place] [address]- 5442 Apr, Major depressive disorder, recurrent episode, moderate F33.1 and Generalized anxiety disorder F41.1 [facility] [id number], [place] [address]- 8815 Apr, COPD (chronic obstructive pulmonary disease) J44.9 [facility] [id number] [address]- 6349 Apr, [facility] [id number], [place] [address]- 1870 Apr, Atrial flutter I48.92 [facility] [id number] [place] [address] 92070- 3542 Apr, [facility] [id number] [place] [address] 98736- 9282 Apr, [facility] [id number] [place] [address] 59954- 1357 Mar, [facility] [id number] [place] [address] 05001- 9015 Mar, [facility] [id number] [place] [address] 07182- 9618 Mar, [facility] [id number] [place] [address] 26749- 7350 Mar, Hyperlipidemia E78.5 ; Type 2 diabetes mellitus with diabetic polyneuropathy E11.42 ; Major depressive disorder, recurrent episode, moderate F33.1 and Chronic pain syndrome G89.4 [facility] [id number] [place] [address] 19678- 2509 Mar, [facility] [id number] [place] [address] 34417- 3568 Mar, [facility] [id number] [place] [address] 58689- 8922 Mar, [facility] [id number] [place] [address] 90631- 1793 Mar, [facility] [id number] [place] [address] 22989- 7101 Feb, COPD (chronic obstructive pulmonary disease) J44.9 and Back pain M54.9 [facility] [id number] [place] [address] 77485- 2876 Feb, [facility] [id number] [place] [address] 22235- 3151 Feb, [facility] [id number], [place] [address]- 9217 Feb, [facility] [id number], [place] [address]- 3673 Feb, [facility] [id number], [place] [address]- 7029 Feb, [facility] [id number] [place] [address] 53738- 6742 Feb, [facility] [id number], [place] [address]- 6156 Feb, [facility] [id number] [place] [address] 84889- 3295 Feb, [facility] [id number] [place] [address] 90100- 9867 Feb, Diabetes E11.9 ; Back pain M54.9 and COPD (chronic obstructive pulmonary disease) J44.9 [facility] [id number] [address]- 8318 Jan, [facility] [id number] [place] [address] 77601- 2895 Jan, Major depression, recurrent F33.9 and Generalized anxiety disorder F41.1 [facility] [id number], [place] [address]- 2392 Jan, Chronic pain G89.29 [facility] [id number], [place] [address]- 9679 Jan, [facility] [id number], [place] [address]- 6835 Jan, [facility] [id number], [place] [address]- 3792 Jan, [facility] [id number], [place] [address]- 0143 Jan, [facility] [id number] [place] [address] 11233- 2989 02 Jan, 2015 Nicotine dependence F17.200 [facility] [id number] [place] [address] 36173- 4740 Jan, Nicotine dependence F17.200 and Back pain M54.9 [facility] [id number] [place] [address] 46190- 9528 Jan, [facility] [id number] [place] [address] 84629- 2645 28 Dec, 2014 [facility] [id number] [place] [address] 40340- 1975 25 Dec, 2014 Anxiety, generalized 300.02 and Major depression, recurrent 296.30 [facility] [id number] [place] [address] 43356- 0568 24 Dec, 2014 [facility] [id number] [place] [address] 03093- 5227 21 Dec, 2014 [facility] [id number] [place] [address] 51493- 7531 17 Dec, 2014 [facility] [id number] [place] [address] 85624- 2349 15 Dec, 2014 [facility] [id number] [place] [address] 64773- 8000 14 Dec, 2014 [facility] [id number] [place] [address] 53308- 5542 11 Dec, 2014 [facility] [id number] [place] [address] 15047- 7441 10 Dec, 2014 [facility] [id number] [place] [address] 40819- 6264 08 Dec, 2014 Skin tear 879.8 [facility] [id number] [place] [address] 85699- 6213 08 Dec, 2015 Routine gynecological examination V72.31 ; Breast cancer screening V76.10 and Family history of breast cancer in first degree relative V16.3 [facility] [address], [place] [address]- 8357 Dec, [facility] [id number] [place] [address] 88815- 9655 Dec, [facility] [id number] [place] [address] 91641- 7460 Nov, [facility] [id number] [place] [address] 55527- 9951 Nov, [facility] [id number] [place] [address] 83666- 7379 Nov, Poor balance 781.99 and Vascular dementia, uncomplicated 290.40 [facility] [id number] [place] [address] 22374- 4238 Nov, [facility] [id number] [place] [address] 79720- 5281 Nov, Major depression, recurrent 296.30 and Anxiety, generalized 300.02 [facility] [id number] [place] [address] 93623- 3854 Nov, [facility] [id number] [place] [address] 87102- 2158 Nov, [facility] [id number] [place] [address] 66220- 1640 Nov, [facility] [id number] [place] [address] 37269- 3847 Nov, [facility] [id number] [place] [address] 02458- 2972 Nov, Vascular dementia, uncomplicated 290.40 and Lumbago 724.2 [facility] [id number], [place] [address]- 8127 Nov, [facility] [id number], [place] [address]- 3656 Nov, [facility] [id number], [place] [address]- 5658 Nov, [facility] [id number], [place] [address]- 0374 Oct, [facility] [id number], [place] [address]- 1523 Oct, [facility] [id number], [place] [address]- 0569 Oct, [facility] [id number], [place] [address]- 9331 Oct, COPD (chronic obstructive pulmonary disease) 496 and Hyperlipidemia 272.4 [facility] [id number] [address]- 9436 Oct, Major depression, recurrent 296.30 and Anxiety, generalized 300.02 [facility] [id number] [address]- 3685 Oct, [facility] [id number] [address]- 6833 Oct, [facility] [id number] [address]- 1641 Oct, [facility] [id number], [place] [address]- 7137 Sep, Lumbago 724.2 and Anxiety state, unspecified 300.00 [facility] [id number] [address]- 2170 Sep, [facility] [id number] [address]- 3531 Sep, [facility] [id number], [place] [address]- 2134 August, [facility] [id number] [address]- 9828 August, Major depression, recurrent 296.30 ; Anxiety, generalized 300.02 and No condition on [place] II V71.09 [facility] [place] [facility] [address] [id number] [place] [address]- 8208 August, [facility] [place] [facility] [address] [id number] [place] [address]- 3816 August, [facility] [place] [facility] [address] [facility] [id number] [place] [address]- 9916 Jul, [facility] [place] [facility] [address] [id number] [place] [address]- 9411 Jul, [facility] [place] [facility] [address] [id number] [place] [address]- 4362 Jul, [facility] [place] [facility] [address] [facility] [id number] [place] [address]- 5737 Jun, [facility] [place] [facility] [address] [facility] [id number] [place] [address]- 1750 Jun, [facility] [place] [facility] [address] [facility] [id number] [place] [address]- 0739 Jun, [facility] [place] [facility] [address] [id number] [place] [address]- 2649 Jun, [facility] [place] [facility] [address] [facility] [id number] [place] [address]- 9417 Jun, [facility] [place] [facility] [address] [facility] [id number] [address]- 6418 Jun, [facility] [place] [facility] [address] [facility] [id number], [place] [address]- 4290 23 Jun, 2014 [facility] [place] [facility] [address] [id number] [place] [address]- 9507 17 Jun, 2014 [facility] [place] [facility] [address] [facility] [id number] [place] 3140 Jun, [facility] [place] [facility] [address] [facility] [id number] [place] 7152 Jun, [facility] [place] [facility] [address] [id number] [place] [address]- 8805 10 Jun, 2014 [facility] [place] [facility] [address] [id number] [place] [address]- 9789 10 Jun, 2014 [facility] [place] [facility] [address] [id number] [place] [address]- 1454 07 Jun, 2014 [facility] [place] [facility] [address] [facility] [id number] [place] [address]- 9359 07 Jun, 2014 [facility] [place] [facility] [address] [facility] [id number] [place] [address]- 1758 02 Jun, 2014 [facility] [place] [facility] [address] [facility] [id number] [place] [address]- 0717 Jun, 2014 [facility] [place] [facility] [address] [facility] [id number] [place] [address]- 4765 May, 2014 [facility] [place] [facility] [address] [facility] [id number] [place] [address]- 4233 23 May, 2014 [facility] [place] [facility] [address] [facility] [id number] [place] [address]- 3531 May, 2014 [facility] [place] [facility] [address] [facility] [id number] [place] [address]- 0391 May, 2014 [facility] [place] [facility] [id number] [place] [address] May, 2014 [facility] [place] [facility] [address] [facility] [id number] [place] [address] May, 2014 [facility] [place] [facility] [address] [facility] [id number] [place] [address] 19 May, 2014 [facility] [place] [facility] [address] [facility] [id number] [place] [address] 12 May, 2014 [facility] [place] [facility] [address] [facility] [id number] [place] [address] 11 May, 2014 [facility] [place] [facility] [address] [facility] [id number] [place] [address] May, [facility] [place] [facility] [address] [id number] [place] [address] May, [facility] [place] [facility] [address] [id number] [place] [address] May, [facility] [place] [facility] [address] [id number] [place] [address] May, [facility] [place] [facility] [address] [id number] [place] [address] May, [facility] [place] [facility] [address] [id number] [place] [address] Apr, [facility] [place] [facility] [address] [id number] [place] [address] Apr, [facility] [place] [facility] [address] [id number] [place] [address] Apr, [facility] [place] [facility] [address] [id number] [place] [address] Apr, [facility] [place] [facility] [address] [id number] [place] [address] Apr, [facility] [place] [facility] [address] [facility] [id number] [place] [address] Apr, [facility] [place] [facility] [address] [id number] [place] [address] Apr, [facility] [place] [facility] [address] [id number], [place] [address] Apr, [facility] [place] [facility] [address] [id number], [place] [address] Apr, [facility] [place] [facility] [address] [id number], [place] [address] Apr, [facility] [place] [facility] [address] [id number], [place] [address] Apr, [facility] [place] [facility] [address] [id number] [place] [address]- [address] Apr, [facility] [place] [facility] [address] [id number] [place] [address] 31 Mar, 2014 [facility] [place] [facility] [address] [id number] [place] [address] 31 Mar, 2014 [facility] [place] [facility] [address] [id number] [place] [address] 30 Mar, 2014 [facility] [place] [facility] [address] [id number] [place] [address] 30 Mar, 2014 [facility] [place] [facility] [address] [id number] [place] [address] 29 Mar, 2014 [facility] [place] [facility] [address] [id number] [place] [address]- [address] 29 Mar, 2014 [facility] [place] [facility] [address] [id number] [place] [address] Mar, [facility] [place] [facility] [address] [id number] [place] [address] 94[address] 19 Mar, 2014 [facility] [place] [facility] [address] [id number] [place] [address] 15 Mar, 2014 [facility] [place] [facility] [address] [id number] [place] [address] 15 Mar, 2014 [facility] [place] [facility] [address] [id number] [place] [address] 15 Mar, 2014 [facility] [place] [facility] [address] [id number] [place] [address] 15 Mar, 2014 [facility] [place] [facility] [address] [id number] [place] [address]- [address] 15 Mar, 2014 [facility] [place] [facility] [address] [id number] [place] [address] 15 Mar, 2014 [facility] [place] [facility] [address] [id number] [place] [address]- [address] Mar, [facility] [place] [facility] [address] [id number] [place] [address] Mar, [facility] [place] [facility] [address] [id number] [place] [id number] 3725 Mar, [facility] [place] [facility] [address] [facility] [id number] [place] [address] 2460 Mar, [facility] [place] [facility] [address] [id number] [place] [address] Mar, [facility] [place] [facility] [address] [id number] [place] [address]- 6996 Mar, [facility] [place] [facility] [address] [id number] [place] [address]- 9346 Feb, [facility] [place] [facility] [address] [id number] [place] [address]- 2796 Feb, [facility] [place] [facility] [address] [id number], [place] [address] 9925 Feb, [facility] [place] [facility] [address] [id number] [place] [address]- 9695 Feb, [facility] [place] [facility] [address] [id number] [place] [address]- 0806 Feb, [facility] [place] [facility] [address] [id number], [place] [address]- 0576 Feb, [facility] [place] [facility] [address] [id number], [place] [address]- 2548 Feb, [facility] [place] [facility] [address] [id number], [place] [address] 5035 Feb, [facility] [place] [facility] [address] [id number], [place] [address]- 0787 Feb, [facility] [place] [facility] [address] [id number], [place] [address]- 3633 Feb, [facility] [place] [facility] [address] [id number] [place] [address]- 1181 Feb, [facility] [place] [facility] [address] [id number] [place] [address]- 9678 Feb, [facility] [place] [facility] [address] [id number] [place] [address]- 7578 Feb, [facility] [place] [facility] [address] [id number] [place] [address]- 6467 Feb, [facility] [place] [facility] [address] [id number] [place] [address]- 3552 Feb, [facility] [place] [facility] [address] [id number] [place] [address]- 5969 Feb, [facility] [place] [facility] [address] [id number] [place] [address]- 8920 Feb, [facility] [place] [facility] [address] [id number] [place] [address]- 5350 Jan, [facility] [place] [facility] [address] [id number] [place] [address]- 9825 Jan, [facility] [place] [facility] [address] [id number] [place] [address]- 4384 Jan, [facility] [place] [facility] [address] [id number] [place] [address]- 8712 Jan, [facility] [place] [facility] [address] [id number] [place] [address]- 9042 Jan, [facility] [place] [facility] [address] [id number] [place] [address]- 4537 Jan, [facility] [place] [facility] [address] [id number] [place] [address]- 4240 Jan, [facility] [place] [facility] [address] [id number] [place] [address]- 1008 Jan, [facility] [place] [facility] [address] [id number] [place] [address]- 4615 Jan, [facility] [place] [facility] [address] [id number] [place] [address]- 5722 Jan, [facility] [place] [facility] [address] [id number] [place] [address]- 0340 Jan, [facility] [place] [facility] [address] [id number] [place] [address]- 1406 Dec, [facility] [place] [facility] [address] [id number] [place] [address]- 4446 Dec, [facility] [place] [facility] [address] [id number] [place] [address]- 2573 Nov, [facility] [place] [facility] [address] [id number] [place] [address]- 8066 Nov, [facility] [place] [facility] [address] [id number] [place] [address]- 0097 Nov, [facility] [place] [facility] [address] [id number] [place] [address]- 3710 Nov, [facility] [place] [facility] [address] [id number] [place] [address]- 9154 Nov, [facility] [place] [facility] [address] [id number] [place] [address]- 5621 Nov, [facility] [place] [facility] [address] [id number] [place] [address]- 7189 Nov, [facility] [place] [facility] [address] [id number] [place] [address]- 5832 Oct, [facility] [place] [facility] [address] [id number] [place] [address]- 1864 Oct, [facility] [place] [facility] [address] [id number] [place] [address]- 3422 Oct, [facility] [place] [facility] [address] [id number] [place] [address]- 3977 Oct, [facility] [place] [facility] [address] [id number] [place] [address]- 8795 Sep, [facility] [place] [facility] [address] [id number] [place] [address]- 9906 Sep, [facility] [place] [facility] [address] [id number] [place] [address]- 5450 Sep, [facility] [place] [facility] [address] [id number] [place] [address]- 3772 Sep, [facility] [place] [facility] [address] [id number] [place] [address]- 0379 Sep, [facility] [place] [facility] [address] [id number] [place] [address]- 4216 Sep, [facility] [place] [facility] [address] [id number] [place] [address]- 8422 Sep, [facility] [place] [facility] [address] [id number] [place] [address]- 0312 Sep, [facility] [place] [facility] [address] [id number] [place] [address]- 1245 Sep, [facility] [place] [facility] [address] [id number] [place] [address]- 4556 Sep, [facility] [place] [facility] [address] [id number] [place] [address]- 5925 Sep, [facility] [place] [facility] [address] [id number] [place] [address]- 0435 Sep, [facility] [place] [facility] [address] [id number] [place] [address]- 0957 Sep, [facility] [place] [facility] [address] [id number] [place] [address]- 1089 Sep, [facility] [place] [facility] [address] [id number] [place] [address]- 3794 August, [facility] [place] [facility] [address] [id number] [place] [address]- 4761 August, [facility] [place] [facility] [address] [id number] [place] [address]- 8889 August, [facility] [address] [id number] [place] [address]- 8782 August, [facility] [address] [id number] [place] [address]- 5853 August, [facility] [address] [id number] [place] [address]- 7362 August, [facility] [address] [id number] [place] [address]- 4010 August, [facility] [address] [id number] [place] [address]- 4856 August, [facility] [address] [id number] [place] [address]- 1073 August, [facility] [address] [id number] [place] [address]- 5382 August, [facility] [address] [id number] [place] [address]- 9497 August, [facility] [address] [id number] [place] [address]- 6026 August, [facility] [address] [id number] [place] [address]- 0897 August, [facility] [address] [id number] [place] [address]- 3746 August, [facility] [address] [id number] [place] [address]- 9882 August, [facility] [place] [facility] [address] [id number] [place] [address]- 4222 August, [facility] [address] [id number] [place] [address]- 7206 August, [facility] [address] [id number] [place] [address]- 7947 August, [facility] [place] [facility] [address] [id number] [place] [address]- 3879 August, [facility] [place] [facility] [address] [id number] [place] [address]- 6580 Jul, [facility] [place] [facility] [address] [id number] [place] [address]- 5189 Jul, [facility] [place] [facility] [address] [id number] [place] [address]- 6740 Jul, [facility] [place] [facility] [address] [id number] [place] [address]858 Jul, [facility] [place] [facility] [address] [id number] [place] [address]- 6113 Jun, [facility] [place] [facility] [address] [id number] [place] [address]- 4952 Jun, [facility] [place] [facility] [address] [id number] [place] [address]- 0762 Jun, [facility] [place] [facility] [address] [id number] [place] [address]- 1034 Jun, [facility] [place] [facility] [address] [id number] [place] [address]- 8404 Jun, [facility] [place] [facility] [address] [id number] [place] [address]- 7659 Jun, [facility] [place] [facility] [address] [id number] [place] [address]- 6500 Jun, [facility] [place] [facility] [address] [id number] [place] [address]- 4219 Jun, [facility] [place] [facility] [address] [id number] [place] [address]- 1956 Jun, [facility] [place] [facility] [address] [id number] [place] [address]- 3945 Jun, [facility] [place] [facility] [address] [id number] [place] [address]- 8412 May, [facility] [place] [facility] [address] [id number] [place] [address]- 7579 May, [facility] [place] [facility] [address] [id number] [place] [address]- 8249 May, [facility] [place] [facility] [address] [facility] [id number] [place] [address]- 8700 May, 2013 [facility] [place] [facility] [address] [id number] [place] [address]- 8177 May, [facility] [place] [facility] [address] [id number] [place] [address]- 2128 May, [facility] [place] [facility] [address] [facility] [id number] [place] [address]- 9848 20 May, 2013 [facility] [place] [facility] [address] [id number] [place] [address]- 5664 May, [facility] [place] [facility] [address] [facility] [id number] [place] [address]- 2345 May, [facility] [place] [facility] [address] [id number] [place] [address]- 0680 18 May, 2013 [facility] [place] [facility] [address] [id number] [place] [address]- 7075 18 May, 2013 [facility] [place] [facility] [address] [facility] [id number] [place] [address]- 4067 17 May, 2013 [facility] [place] [facility] [address] [facility] [id number] [place] [address]- 9501 11 May, 2013 [facility] [place] [facility] [address] [facility] [id number] [place] [address]- 0998 11 May, 2013 [facility] [place] [facility] [address] [facility] [id number] [place] [address]- 7687 10 May, 2013 [facility] [place] [facility] [address] [facility] [id number], [place] [address]- 2546 07 May, 2013 [facility] [address] [id number] [place] [address]- 5237 May, [facility] [place] [facility] [address] [id number] [place] [address]- 9413 Apr, [facility] [place] [facility] [address] [id number] [place] [address]- 0110 Apr, [facility] [place] [facility] [address] [id number] [place] [address]- 4797 Apr, [facility] [place] [facility] [address] [id number] [place] [address]- 9931 Apr, [facility] [place] [facility] [address] [id number] [place] [address]- 8687 Apr, [facility] [address] [id number] [place] [address]- 0481 Apr, [facility] [place] [facility] [address] [id number] [place] [address]- 2394 Apr, [facility] [address] [id number] [place] [address]- 7455 Mar, [facility] [place] [facility] [address] [id number] [place] [address]- 8497 Mar, [facility] [place] [facility] [address] [id number] [place] [address]- 2326 Mar, [facility] [place] [facility] [address] [id number] [place] [address]- 5340 Mar, [facility] [place] [facility] [address] [id number] [place] [address]- 1888 Mar, [facility] [place] [facility] [address] [id number] [place] [address]- 9366 Mar, [facility] [place] [facility] [address] [id number] [place] [address]- 7361 Mar, [facility] [place] [facility] [address] [id number] [place] [address]- 8645 04 Mar, 2013 [facility] [address] [id number] [place] [address]- 3682 Mar, [facility] [place] [facility] [address] [id number] [place] [address]- 7566 Mar, [facility] [address] [id number] [place] [address]- 9689 Mar, [facility] [place] [facility] [address] [id number] [place] [address]- 6210 Feb, [facility] [address] [id number] [place] [address]- 9743 Feb, [facility] [address] [id number] [place] [address]- 3633 Feb, [facility] [address] [id number] [place] [address]- 7900 20 Feb, 2013 [facility] [address] [id number] [place] [address]- 9545 Feb, [facility] [address] [id number] [place] [address]- 9775 19 Feb, 2013 [facility] [address] [id number] [place] [address]- 5774 15 Feb, 2013 [facility] [place] [facility] [address] [id number] [place] [address]- 6145 14 Feb, 2013 [facility] [place] [facility] [address] [id number] [place] [address]- 6949 14 Feb, 2013 [facility] [place] [facility] [address] [id number] [place] [address]- 5488 13 Feb, 2013 [facility] [place] [facility] [address] [id number] [place] [address]- 5119 13 Feb, 2013 [facility] [place] [facility] [address] [id number] [place] [address]- 6929 Feb, [facility] [place] [facility] [address] [id number] [place] [address]- 6766 Feb, [facility] [place] [facility] [address] [id number] [place] [address]- 4569 Feb, [facility] [place] [facility] [address] [id number] [place] [address]- 4619 Feb, [facility] [place] [facility] [address] [id number] [place] [address]- 7300 Feb, [facility] [place] [facility] [address] [id number] [place] [address]- 5241 Jan, [facility] [place] [facility] [address] [id number] [place] [address]- 0982 Jan, [facility] [place] [facility] [address] [id number] [place] [address]- 3832 Jan, [facility] [place] [facility] [address] [id number], [place] [address]- 1599 Jan, [facility] [place] [facility] [address] [id number] [place] [address]- 1503 Jan, [facility] [place] [facility] [address] [id number], [place] [address]- 9732 Jan, [facility] [place] [facility] [address] [id number], [place] [address]- 3483 Jan, [facility] [place] [facility] [address] [id number], [place] [address]- 9367 Jan, [facility] [place] [facility] [address] [id number] [place] [address]- 7165 Jan, [facility] [place] [facility] [address] [id number], [place] [address]- 2848 27 Dec, 2012 [facility] [place] [facility] [address] [id number] [place] [address]- 1854 20 Dec, 2012 [facility] [place] [facility] [address] [id number] [place] [address]- 0859 19 Dec, 2012 [facility] [place] [facility] [address] [id number] [place] [address]- 0397 10 Dec, 2012 [facility] [place] [facility] [address] [id number] [place] [address]- 1731 04 Dec, 2012 [facility] [place] [facility] [address] [id number] [place] [address]- 2458 03 Dec, 2012 [facility] [place] [facility] [address] [id number] [place] [address]- 6958 Nov, [facility] [place] [facility] [address] [id number] [place] [address]- 0836 Nov, [facility] [place] [facility] [address] [id number] [place] [address]- 7329 Nov, [facility] [place] [facility] [address] [id number] [place] [address]- 3933 Nov, [facility] [place] [facility] [address] [id number] [place] [address]- 8615 Nov, [facility] [place] [facility] [address] [id number] [place] [address]- 0677 Nov, [facility] [place] [facility] [address] [id number] [place] [address]- 0109 Nov, [facility] [place] [facility] [address] [id number] [place] [address]- 1972 Nov, [facility] [place] [facility] [address] [id number] [place] [address]- 2548 14 Nov, 2012 [facility] [place] [facility] [address] [id number] [place] [address]- 3079 Nov, [facility] [place] [facility] [address] [id number] [place] [address]- 5424 Oct, [facility] [place] [facility] [address] [id number] [place] [address]- 0627 Oct, [facility] [place] [facility] [address] [id number] [place] [address]- 4923 Oct, 2012 [facility] [place] [facility] [address] [id number] [place] [address]- 4952 Oct, 2012 [facility] [place] [facility] [address] [id number] [place] [address]- 1299 Oct, 2012 [facility] [place] [facility] [address] [id number] [place] [address]- 4639 Oct, 2012 [facility] [place] [facility] [address] [id number] [place] [address]- 7761 Oct, [facility] [place] [facility] [address] [id number] [place] [address]- 2049 Oct, [facility] [place] [facility] [address] [id number] [place] [address]- 8492 Sep, [facility] [place] [facility] [address] [id number] [place] [address]- 2617 Sep, [facility] [place] [facility] [address] [id number] [place] [address]- 7335 Sep, [facility] [place] [facility] [address] [id number] [place] [address]- 5998 Sep, [facility] [place] [facility] [address] [id number] [place] [address]- 1475 Sep, [facility] [place] [facility] [address] [id number] [place] [address]- 2197 Sep, [facility] [place] [facility] [address] [id number] [place] [address]- 2331 Sep, [facility] [place] [facility] [address] [id number] [place] [address]- 4167 Sep, [facility] [place] [facility] [address] [id number] [place] [address]- 2149 August, [facility] [place] [facility] [address] [id number] [place] [address]- 5540 August, [facility] [address] [id number] [place] [address] August, [facility] [address] [id number] [place] [address] August, [facility] [address] [id number] [place] [address] August, [facility] [address] [id number] [place] [address] Jul, [facility] [address] [id number] [place] [address] Jul, [facility] [address] [id number] [place] [address] Jul, [facility] [address] [id number] [place] [address] Jul, [facility] [address] [id number] [place] [address] Jul, [facility] [address] [id number] [place] [address] Jun, [facility] [place] [facility] [address] [id number] [place] [address] 18 Jun, 2012 [facility] [address] [id number] [place] [address] 15 Jun, 2012 [facility] [address] [id number], [place] [address] 14 Jun, 2012 [facility] [address] [id number] [place] [address] 12 Jun, 2012 [facility] [place] [facility] [address] [id number] [place] [address]- [address] 08 Jun, 2012 [facility] [facility] [address] [id number] [place] [address] 08 Jun, 2012 [facility] [address] [id number] [place] [address] Jun, [facility] [address] [id number] [place] [address] Jun, [facility] [address] [id number] [place] [address] May, [facility] [address] [id number] [place] [address] May, [facility] [address] [id number] [place] [address] May, [facility] [address] [id number] [place] [address] May, [facility] [address] [id number] [place] [address] Apr, [facility] [address] [id number] [place] [address] Apr, [facility] [address] [id number] [place] [address] Apr, [facility] [address] [id number] [place] [address]- [address] Apr, [facility] [address] [id number] [place] [address] Apr, [facility] [address] [id number] [place] [address]- [address] Apr, [facility] [address] [id number] [place] [address] Apr, [facility] [address] [id number] [place] [address] Mar, [facility] [address] [place] [id number] Mar, [facility] [address] [id number] [place] [address] Mar, [facility] [address] [id number] [place] [address]- [address] Mar, [facility] [address] [id number] [place] [address]- [address] Mar, [facility] [address] [id number] [place] [address]- [address] Mar, [facility] [address] [id number] [place] [address]- [address] Mar, [facility] [address] [id number] [place] [address]- [address] Mar, [facility] [address] [id number] [place] [address]- [address] Mar, [facility] [address] [id number] [place] [address]- [address] Mar, [facility] [address] [id number] [place] [address]- [address] Mar, [facility] [address] [id number] [place] [address]- [address] Mar, [facility] [address] [id number] [place] [address]- [address] Mar, [facility] [address] [id number] [place] [address]- [address] Mar, [facility] [address] [id number] [place] [address]- [address] Mar, [facility] [address] [id number] [place] [address]- [address] Mar, [facility] [address] [id number] [place] [address]- [address] Mar, [facility] [address] [id number] [place] [address]- [address] Feb, [facility] [address] [id number], [place] [address]- [address] Feb, [facility] [address] [id number] [place] [address]- 8027 Feb, [facility] [address] [id number] [place] [address]- [address] Feb, [facility] [address] [id number] [place] [address]- [address] Feb, [facility] [address] [id number], [place] [address] Feb, [facility] [address] [id number] [place] [address]- [address] Feb, [facility] [address] [id number], [place] [address] Feb, [facility] [address] [id number], [place] [address] Feb, [facility] [address] [id number], [place] [address] Feb, [facility] [address] [id number], [place] [address]- [address] Feb, [facility] [address] [id number], [place] [address]- [address] Feb, [facility] [address] [id number], [place] [address] Feb, [facility] [address] [id number], [place] [address]- [address] Feb, [facility] [address] [id number], [place] [address]- [address] Feb, [facility] [address] [id number], [place] [address]- [address] Feb, [facility] [address] [id number], [place] [address]- [address] Jan, [facility] [address] [id number] [place] [address]- [address] Jan, 2011 [facility] [address] [id number] [place] [address] Jan, 2011 [facility] [place] [facility] [address] [id number] [place] [address] Jan, [facility] [place] [facility] [address] [id number] [place] [address] Jan, [facility] [place] [facility] [address] [id number] [place] [address] 114[address] Jan, 2011 [facility] [place] [facility] [address] [id number] [place] [address] 18[address] Jan, [facility] [place] [facility] [address] [id number] [place] [address] 0948 Jan, [facility] [place] [facility] [address] [id number] [place] [address] Jan, [facility] [place] [facility] [address] [id number] [place] [address] 0936 Jan, [facility] [place] [facility] [address] [facility] [id number] [place] [address] 6[address] Jan, [facility] [place] [facility] [address] [facility] [id number] [place] [address] 1749 Jan, [facility] [place] [facility] [address] [id number] [place] [address] 4998 Jan, [facility] [place] [facility] [address] [id number], [place] [address] Jan, [facility] [place] [facility] [address] [id number] [place] [address] 4[address] Jan, [facility] [place] [facility] [address] [facility] [id number] [place] [address] 3504 Jan, [facility] [place] [facility] [address] [id number], [place] [address] Jan, [facility] [place] [facility] [address] [id number] [place] [address] 4[address] 21 Dec, 2011 [facility] [place] [facility] [address] [id number] [place] [address] 4626 20 Dec, 2011 [facility] [place] [facility] [address] [id number] [place] [address]- 6026 18 Dec, 2011 [facility] [place] [facility] [address] [id number] [place] [address] 2546 18 Dec, 2011 [facility] [place] [facility] [address] [id number] [place] [address] 6186 10 Dec, 2011 [facility] [place] [facility] [address] [id number] [place] [address] 9586 10 Dec, 2011 [facility] [place] [facility] [address] [id number] [place] [address] 5666 10 Dec, 2011 [facility] [place] [facility] [address] [id number] [place] [address] 6[address] 07 Dec, 2011 [facility] [place] [facility] [address] [id number] [place] [address] 4047 30 Nov, 2011 [facility] [place] [facility] [address] [id number] [place] [address] 5414 Nov, [facility] [place] [facility] [address] [id number] [place] [address] 8606 Nov, [facility] [place] [facility] [address] [id number], [place] [address] Nov, [facility] [place] [facility] [address] [id number] [place] [address]- 3406 Nov, [facility] [place] [facility] [address] [id number] [place] [address]- 2926 16 Nov, 2011 [facility] [place] [facility] [address] [id number] [place] [address] 9196 30 Oct, 2011 [facility] [place] [facility] [address] [id number] [place] [address]- 6618 30 Oct, 2011 [facility] [place] [facility] [address] [id number] [place] [address] 5434 Oct, [facility] [place] [facility] [address] [id number] [place] [address] 9233 Oct, [facility] [place] [facility] [address] [id number] [place] [address] 7864 Oct, [facility] [place] [facility] [address] [id number] [place] [address] 0326 Oct, [facility] [place] [facility] [address] [id number] [place] [address] 3064 Oct, [facility] [place] [facility] [address] [id number] [place] [address] 6[address] Sep, [facility] [place] [facility] [address] [id number] [place] [address] 0392 Sep, [facility] [place] [facility] [address] [id number] [place] [address] 3992 Sep, [facility] [place] [facility] [address] [id number] [place] [address] 2960 Sep, [facility] [place] [facility] [address] [facility] [id number] [place] [address] 2044 Sep, [facility] [place] [facility] [address] [id number] [place] [address] 2633 15 Sep, 2011 [facility] [place] [facility] [address] [id number] [place] [address]- 8615 14 Sep, 2011 [facility] [place] [facility] [address] [id number] [place] [address]- 7137 11 Sep, 2011 [facility] [place] [facility] [address] [id number] [place] [address] 3920 05 Sep, 2011 [facility] [place] [facility] [address] [facility] [id number] [place] [address] 6372 04 Sep, 2011 [facility] [place] [facility] [address] [id number] [place] [address] 3118 August, [facility] [address] [id number] [place] [address] 9874 August, [facility] [place] [facility] [address] [id number] [place] [address] 9546 August, [facility] [address] [id number] [place] [address] 1761 August, [facility] [place] [facility] [address] [id number] [place] [address] 7760 August, [facility] [address] [id number] [place] [address] 9665 Jul, [facility] [place] [facility] [address] [id number] [place] [address] Jul, [facility] [address] [id number] [place] [address] 0091 Jul, [facility] [address] [id number] [place] [address] 4341 Jul, [facility] [address] [id number] [place] [address] 3969 Jul, [facility] [address] [id number] [place] [address] 3972 Jul, [facility] [place] [facility] [address] [id number] [place] [address] 0000 Jul, [facility] [place] [facility] [address] [id number] [place] [address] 4773 Jun, [facility] [place] [facility] [address] [id number] [place] [address] 2028 Jun, [facility] [place] [facility] [address] [id number] [place] [address] 8941 Jun, [facility] [place] [facility] [address] [id number] [place] [address]- 2625 Jun, [facility] [place] [facility] [address] [id number] [place] [address]- 2080 Jun, [facility] [place] [facility] [address] [id number] [place] [address]- 2237 May, [facility] [place] [facility] [address] [id number] [place] [address]- 8780 May, [facility] [place] [facility] [address] [id number] [place] [address]- 5945 May, [facility] [place] [facility] [address] [id number] [place] [address]- 6133 May, [facility] [place] [facility] [address] [id number] [place] [address]- 1490 May, [facility] [place] [facility] [address] [id number] [place] [address]- 3348 May, [facility] [place] [facility] [address] [id number] [place] [address]- 4628 Apr, [facility] [place] [facility] [address] [id number] [place] [address]- 9865 Mar, [facility] [place] [facility] [address] [id number] [place] [address]- 7010 Feb, [facility] [place] [facility] [address] [id number] [place] [address]- 6352 Feb, [facility] [place] [facility] [address] [id number] [place] [address]- 5270 Feb, [facility] [place] [facility] [address] [id number] [place] [address]- 6795 Feb, [facility] [place] [facility] [address] [facility] [id number] [place] [address]- 2658 Jan, [facility] [place] [facility] [address] [id number] [place] [address]- 6766 Jan, [facility] [place] [facility] [address] [id number] [place] [address]- 1828 26 Jan, 2011 [facility] [address] [id number] [place] [address]- 5447 24 Jan, 2011 [facility] [place] [facility] [address] [id number] [place] [address]- 6926 14 Jan, 2011 [facility] [address] [id number] [place] [address]- 6606 19 Dec, 2010 [facility] [address] [id number] [place] [address]- 7488 Oct, [facility] [address] [id number] [place] [address] August, [facility] [address] [id number] [place] [address]- 8186 29 Mar, 2010 [facility] [address] [id number] [place] [address]- 8956 27 Mar, 2010 [facility] [address] [id number] [place] [address]- 2236 16 Mar, 2010 [facility] [address] [id number] [place] [address]- 2243 15 Mar, 2010 [facility] [address] [id number] [place] [address]- 7308 15 Mar, 2010 [facility] [address] [id number] [place] [address] 2541 08 Mar, 2010 [facility] [address] [id number] [place] [address] 2540 03 Mar, 2010 [facility] [place] [facility] [address] [id number] [place] [address]- 9565 24 Feb, 2010 [facility] [place] [facility] [address] [id number] [place] [address]- 7076 24 Feb, 2010 [facility] [address] [id number] [place] [address]- 4838 15 Feb, 2010 [facility] [place] [facility] [address] [id number] [place] [address]- 0984 19 Jan, 2010 [facility] [place] [facility] [address] [id number] [place] [address]- 2419 Jan, [facility] [place] [facility] [address] [id number] [place] [address]- 1326 18 Jan, 2010 [facility] [place] [facility] [address] [id number] [place] [address]- 2781 Nov, [facility] [place] [facility] [address] [id number] [place] [address]- 3538 14 Sep, 2009 [facility] [place] [facility] [address] [id number] [place] [address]- 2991 August, [facility] [place] [facility] [address] [id number] [place] [address]- 0664 30 Mar, 2009 [facility] [place] [facility] [address] [id number], [place] [address]- 6[address] 07 Mar, 2009 [facility] [place] [facility] [address] [id number] [place] [address]- 3790 17 Feb, 2009 [facility] [place] [facility] [address] [facility] [id number], [place] [address]- 0037 10 Feb, 2009 [facility] [place] [facility] [address] [id number], [place] [address]- 0234 10 Feb, 2009 [facility] [place] [facility] [address] [id number], [place] [address]- 1378 10 Feb, 2009 [facility] [place] [facility] [address] [id number] [place] [address]- 1136 06 Feb, 2009 [facility] [place] [facility] [address] [id number], [place] [address]- 4172 27 Jan, 2009 [facility] [place] [facility] [address] [id number], [place] [address]- 1260 Jan, [facility] [place] [facility] [address] [id number], [place] [address]- 9575 Jan, [facility] [id number], [place] [address] 6756 Jan, [facility] [id number], [place] [address] 5808 Nov, [facility] [id number], [place] [address]- 0990 Sep, [facility] [id number] [place] [address]- 9051 August, [facility] [id number], [place] [address]- [address] Jul, [facility] [id number], [place] [address]- 7223 May, IMMUNIZATIONS No Known Immunizations SOCIAL HISTORY Never Assessed REASON FOR VISIT [facility] follow up, PT fell a week ago causing the ER visit/ DM -Javi GALE PLAN OF CARE Activity Details Follow Up 3 Months Reason: VITAL SIGNS Height 64 in 2017-06-24 Weight 159.3 lbs 2017-06-24 Temperature 98.3 degrees Fahrenheit 2017-06-24 Heart Rate 99 bpm 2017-06-24 Respiratory Rate 20 2017-06-24 Oximetry 94 % 2017-06-24 BMI 27.34 kg/m2 2017-06-24 Blood pressure systolic 96 mmHg 2017-06-24 Blood pressure diastolic 60 mmHg 2017-06-24 MEDICATIONS Medication Instructions Dosage Frequency Start Date End Date Duration Status Ventolin HFA 108 (90 Base) MCG/ACT INHALE 2 PUFFS EVERY 4 HOURS NEEDED 16 Active Diltiazem HCl ER 240 MG Orally Once a day 1 capsule 24h Active Nitroglycerin 0.4 MG Active Mupirocin 2 % Externally two times a day 1 application to affected area 12h Active Ropinirole HCl 2 MG TAKE 1 TABLET ONE TIME DAILY AT BEDTIME 90 Active Alendronate Sodium 70 MG TAKE 1 TABLET EVERY WEEK Active Simvastatin 20mg Orally Once a day 1 tablet in the evening 24h Active Cetirizine HCl 10 MG Orally Once a day 1 tablet as needed 24h Not- Taking Lamictal 25 MG Orally every night 3 tablets Apr, 30 days Not -Taking Lomotil 2.5-0.025 mg Orally Four times a day TWO TABLETS 6h 30 Active Albuterol Sulfate 2.5 mg /3 mL (0.083 %) 1 Each by Inhalation route every 4 hours for cough and wheeze PRN for wheezing or cough Jun, Not-Taking Hydrocodone-Acetaminophen 5-325 MG Orally every 6 hrs 1 tablet as needed 6h Jun, Active Abilify 5 MG Orally Once a day 1 tablet 24h Active Azithromycin 250 MG Orally Once a day 2 tablets on the first day, then 1 tablet daily for 4 days 24h Jun, Jun, 05 days Active Calcium Active Benefiber - Active Namenda 10 MG TAKE 1 TABLET EVERY DAY Active Pantoprazole Sodium 40 MG Orally 2 times a day 1 tablet 12h Active Vitamin D 50,000 Orally once a week 1 tablet Active Spiriva HandiHaler 18 MCG Inhalation Once a day 1 capsule 24h Active Remeron 45 MG Orally Once a day at bedtime 1 tablet Feb, 30 days Not-Taking Omeprazole 40 mg Orally Once a day 1 capsule 24h Active Gabapentin 600 MG TAKE 1 TABLET THREE TIMES DAILY 90 Active Fluticasone Propionate 50 MCG/ACT Nasally 2 times a day 2 sprays in each nostril 12h 30 days Active Trospium Chloride 20 mg Orally Once a day 1 tablet at bedtime on an empty stomach 24h Active Baclofen 20 MG Orally 3 times a day 1 tablet with food or milk 8h May, 30 day(s) Active Xifaxan 550 MG Orally Three times a day 1 tablet 8h Active Eliquis 5 MG Orally 2 times a day 12h Active Zofran ODT 4 MG Orally every 4 hrs 1 tablet on the tongue and allow to dissolve 4h Jul, 1 days Active Oxygen 5 inhalation all the time Active Welchol 625 MG Orally twice a day 2 tablets 12h Active Toprol XL 25 MG Orally Once a day 1 tablet 24h Active Primidone 250 mg Orally Three times a day 1 tablet 8h 90 days Active Magnesium Active Symbicort 160-4.5 MCG/ACT INHALE 2 PUFFS TWICE DAILY, IN THE MORNING AND IN THE EVENING 90 Active Promethazine-Codeine 6.25-10 MG/5ML Orally every 6 hrs 5 ml as needed 6h 15 Jun, 2017 Active Singulair 10 MG Orally Once a day take 1 tablet (10 mg) by oral route once daily in the evening 24h Oct, Active HydrOXYzine HCl 25 MG Orally three times a day as needed 1 tablet Active Melatonin 5 MG Orally Once a day 1 tablet at bedtime as needed with food 24h Jun, 30 day(s) Active Tramadol HCl 50 MG Orally every 4 hrs 1 tablet as needed 4h Active RESULTS Name Result Date Reference Range A1C (IN HOUSE) 2017-06-24 A1C IN HOUSE 5.7 4.3 - 5.6 % Previous A1c 5.3 Lot [id number] Exp date 02/2019 PROCEDURES Procedure Date Ordered Result Body Site [facility] VISIT ESTABLISHED PATIENT June 24, 2017 GLYCATED HEMOGLOBIN TEST June 24, 2017 INSTRUCTIONS MEDICATIONS ADMINISTERED No Known Medications [...] Knee Surgery 07/16/17 Hospitalization History [facility] [place]- left hand/wrist swelling 10/09/2017
--- OUTSIDE RECORDS SUMMARY | 2018-01-01 12:42 | XMS REPORT ---
Author Author SE[facility]IT [facility]UN[facility] Address [address] [place] [address] Care Team Providers Care Cardiac Cath Technician Name Role Phone SENAIT DUNLAP Unavailable PROBLEMS Type Condition ICD9-CM Code WPH34-NZ Code Onset Dates Condition Status SNOMED Code Problem History of common bile duct surgery Z98.89 Active 348936187 Problem Barretts esophagus K22.70 Active 934930901 Problem 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 Active 17950074 Problem Colon polyp K63.5 Active 33165589 Problem Bilateral low back pain without sciatica M54.5 Active 558466444 Problem Screening breast examination Z12.39 Active 417435025 Problem Postmenopausal Z78.0 Active 66037873 Problem Osteopenia M85.80 Active 800764890 Problem Cigarette nicotine dependence without complication F17.210 Active 42193273 Problem Type 2 diabetes mellitus with diabetic peripheral angiopathy without gangrene E11.51 Active 993293022 Problem Vascular dementia without behavioral disturbance F01.50 Active [id number] Problem Unspecified atherosclerosis of kaibab arteries of extremities, unspecified extremity I70.209 Active 583502981620441 Problem Arthritis M19.90 Active 9523320 Problem Chronic atrial fibrillation I48.2 Active 205878694 Problem Chronic obstructive pulmonary disease with acute lower respiratory infection J44.0 Active 140590109 Problem Other chronic pancreatitis K86.1 Active 787407560 Problem Stress incontinence of urine N39.3 Active 25750790 Problem Controlled type 2 diabetes mellitus without complication, without long -term current use of insulin E11.9 Active 642529253 Problem Unspecified psychosis F29 Active 68877218 Problem Xeroderma Q80.9 Active 19576642 Problem COPD (chronic obstructive pulmonary disease) J44.9 Active 31015531 Problem Dementia without behavioral disturbance, unspecified dementia type F03.90 Active 68523154 Problem Gastroparesis K31.84 Active 607814962 Problem Type 2 diabetes mellitus with diabetic neuropathy, without long-term current use of insulin E11.40 Active 99939137 Problem Osteoporosis M81.0 Active 81949305 Problem Atherosclerosis of kaibab artery of both lower extremities with intermittent claudication I70.213 Active 937573281349379 Problem Hyperlipidemia E78.5 Active 94967787 Problem Diabetic polyneuropathy associated with type 2 diabetes mellitus E11.42 Active 90240015 Problem Essential tremor G25.0 Active 42152180 Problem 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 Active 5457068930048 Problem Generalized anxiety disorder F41.1 Active 657483792 Problem Gastroesophageal reflux disease, esophagitis presence not specified K21.9 Active 252847334 Problem Coronary artery disease involving kaibab coronary artery of kaibab heart with other form of angina pectoris I25.118 Active 1704967809499 Problem Postconcussion syndrome F07.81 Active 95213195 Problem Chronic pain syndrome G89.4 Active 962566138 Problem Migraine without aura and without status migrainosus, not intractable G43.009 Active 105022985 Problem Paroxysmal atrial fibrillation I48.0 Active 809530182 Problem Migraine without aura and with status migrainosus, not intractable G43.001 Active 193798213 Problem Cervicalgia M54.2 Active 1313024187261 Problem Acute exacerbation of chronic obstructive pulmonary disease (COPD) J44.1 Active 062000724 Problem Major depressive disorder, recurrent episode, moderate F33.1 Active 604380910 Problem Crohn''s disease without complication, unspecified gastrointestinal tract location K50.90 Active 62479376 Problem Chronic fatigue R53.82 Active 62513044 Problem Bipolar affective disorder, currently depressed, moderate F31.32 Active 585765323 ALLERGIES No Information ENCOUNTERS Encounter Location Date Diagnosis [facility] [id number] [address] Nov, [facility] [address] [address] Nov, [facility] [id number] [address]17 Oct, [facility] [id number] [address] 9331 Oct, [facility] [address] [address] 16 Oct, 2017 [facility] [address] [place] [address] 90238- 0999 Oct, Edema of both legs R60.0 [facility] [id number] [place] [address] 20556- 7867 Oct, [facility] [id number] [place] [address] 41971- 0077 Sep, [facility] [id number] [place] [address] 36071- 7391 Sep, [facility] [id number] [place] [address] 00422- 9069 Sep, [facility] [id number] [place] [address] 29776- 6614 Sep, Encounter for well woman exam with routine gynecological exam Z01.419 ; Screening for STDs (sexually transmitted diseases) Z11.3 ; Screening breast examination Z12.31 and Overweight (BMI 25.0-29.9) E66.3 [place] [id number] [place] [address] 82642- 7700 Sep, [facility] [address] [address] 8106 Sep, [facility] [address] [address] 1678 Sep, [facility] [address] [address] 6113 August, [facility] [id number] [place] [address] 96760- 1666 August, [facility] [address] [address] 0536 August, Type 2 diabetes mellitus with diabetic neuropathy, without long-term current use of insulin E11.40 and Sprain of right ankle, unspecified ligament, initial encounter S93.401A [facility] [id number] [address] 1460 August, [facility] [id number] [place] [address] 55435- 1291 August, [facility] [id number] [place] [address] 97099- 2897 August, [facility] [id number] [place] [address] 98565- 9885 August, Gastroesophageal reflux disease, esophagitis presence not specified K21.9 [facility] [id number] [place] [address] 16437- 9528 August, [facility] [id number] [place] [address] 30645- 0300 August, [facility] [id number] [place] [address] 95439- 6305 August, [facility] [id number] [place] [address] 72503- 4889 August, Type 2 diabetes mellitus with diabetic neuropathy, without long-term current use of insulin E11.40 and Elevated liver enzymes R74.8 [facility] [address] [address] 2353 Jul, [facility] [address] [place] [address] 76425- 0101 Jul, Cough R05 [facility] [address] [address] 3864 Jul, [facility] [id number] [place] [address] 50744- 5535 Jul, [facility] [id number] [place] [address] 33087- 2672 Jul, Bipolar affective disorder, currently depressed, moderate F31.32 ; Vascular dementia without behavioral disturbance F01.50 and Generalized anxiety disorder F41.1 [facility] [id number] [place] [address] 32570- 7125 Jul, [facility] [address] 00319- 9407 Jul, Type 2 diabetes mellitus with diabetic neuropathy, without long-term current use of insulin E11.40 and Elevated liver enzymes R74.8 [facility] [address] 78361- 7601 Jul, [facility] [address] 37061- 2378 Jul, [place] [address] 93115- 8788 Jul, [facility] [id number] [place] [address] 26941- 6471 Jul, Post-menopausal Z78.0 [place] [address] 44092- 4642 Jul, Stress incontinence of urine N39.3 [place] [id number] [place] [address] 31313- 1005 Jul, [place] [id number] [place] [address] 89294- 1649 Jul, [facility] [id number] [place] [address] 34188- 8303 Jul, Stress incontinence of urine N39.3 and Cough R05 [facility] [id number] [place] [address] 44995- 9168 Jul, [facility] [id number] [place] [address] 67987- 0776 Jul, [facility] [id number] [place] [address] 68311- 7521 Jul, [facility] [id number] [place] [address] 42843- 9110 Jul, Gastroesophageal reflux disease, esophagitis presence not specified K21.9 [facility] [id number] [place] [address] 69857- 9706 29 Jun, 2017 Diabetic polyneuropathy associated with type 2 diabetes mellitus E11.42 [facility] [id number] [place] [address]66 Jun, Diabetic polyneuropathy associated with type 2 diabetes mellitus E11.42 ; Coronary artery disease involving kaibab coronary artery of kaibab heart with other form of angina pectoris I25.118 and Paroxysmal atrial fibrillation I48.0 [facility] [id number] [place] [address] 20876- 8091 Jun, [facility] [address] 77462- 9885 Jun, [facility] [id number] [place] [address] 35061- 8399 Jun, Gastroenteritis K52.9 [facility] [id number] [place] [address] 07928- 8895 Jun, Gastroenteritis K52.9 [facility] [id number] [place] [address] 79668- 8367 Jun, [facility] [id number] [place] [address] 78063- 9234 Jun, [facility] [id number] [place] [address] 03485- 2014 Jun, Sprain of right ankle, unspecified ligament, initial encounter S93.401A ; Type 2 diabetes mellitus with diabetic neuropathy, without long-term current use of insulin E11.40 ; Atherosclerosis of kaibab artery of both lower extremities with intermittent claudication I70.213 ; 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 ; Chronic atrial fibrillation I48.2 and Crohn''s disease without complication, unspecified gastrointestinal tract location K50.90 [facility] [address] [address] 17 Jun, 2017 Chronic obstructive pulmonary disease with acute lower respiratory infection J44.0 and Cough R05 [facility] [id number] [place] [address] 51749- 9681 Jun, [facility] [id number] [place] [address] 15033- 8461 Jun, Coughing R05 ; Unspecified atherosclerosis of kaibab arteries of extremities, unspecified extremity I70.209 ; Type 2 diabetes mellitus with diabetic peripheral angiopathy without gangrene E11.51 ; Crohn''s disease without complication, unspecified gastrointestinal tract location K50.90 ; Other chronic pancreatitis K86.1 and Chronic atrial fibrillation I48.2 [facility] [id number] [place] [address] 22412 -7371 Jun, [facility] [id number] [place] [address] 26860- 3398 Jun, Bipolar affective disorder, currently depressed, moderate F31.32 ; Vascular dementia without behavioral disturbance F01.50 and Generalized anxiety disorder F41.1 [place] [id number] [place] [address] 37999- 3188 May, Generalized anxiety disorder F41.1 [place] [id number] [place] [address] 04110- 9034 May, [facility] [id number] [place] [address] 91234- 3170 May, [facility] [id number] [place] [address] 67376- 3014 May, Coughing R05 [facility] [id number] [place] [address] 02870- 3011 May, [facility] [id number] [place] [address] 48198- 9727 May, Bipolar affective disorder, currently depressed, moderate F31.32 ; Vascular dementia without behavioral disturbance F01.50 and Generalized anxiety disorder F41.1 [place] [id number] [place] [address] 14858- 5058 Apr, Generalized anxiety disorder F41.1 [facility] [id number] [place] [address] 06672- 1592 Apr, [facility] [id number] [place] [address] 46678- 0216 Apr, Vascular dementia without behavioral disturbance F01.50 ; Generalized anxiety disorder F41.1 and Bipolar affective disorder, currently depressed, moderate F31.32 [facility] [id number] [place] [address] 60537- 3650 Apr, Generalized anxiety disorder F41.1 [facility] [id number] [place] [address] 15523 -5071 Apr, Cough R05 and Acute exacerbation of chronic obstructive pulmonary disease (COPD) J44.1 [place] [id number] [place] [address] 18582- 8501 Apr, [facility] [id number] [place] [address] 76276 -1687 Mar, Cough R05 and Cigarette nicotine dependence without complication F17.210 [facility] [id number] [place] [address] 01571- 8871 Mar, [facility] [id number] [place] [address] 41910- 8629 Feb, Generalized anxiety disorder F41.1 ; Major depressive disorder, recurrent episode, moderate F33.1 ; Vascular dementia without behavioral disturbance F01.50 and Unspecified psychosis F29 [facility] [id number] [place] [address] 00002- 0021 Feb, [facility] [id number] [place] [address] 68741- 1610 Feb, [facility] [id number] [place] [address] 89110- 8358 Feb, Generalized anxiety disorder F41.1 [facility] [id number] [place] [address] 22401- 2428 Feb, Generalized anxiety disorder F41.1 [place] [address] 98219- 9519 Feb, Dizziness R42 ; Chronic fatigue R53.82 ; Postconcussion syndrome F07.81 ; Fall, initial encounter W19.XXXA and Disorientation R41.0 [place] [address] 55428- 9228 Feb, Postconcussion syndrome F07.81 ; Injury of head, initial encounter S09.90XA ; Fall, initial encounter W19.XXXA ; Disorientation R41.0 and Acute cystitis with hematuria N30.01 [address] [place] [id number] [place] [address] 20352- 0564 Jan, Gastroesophageal reflux disease, esophagitis presence not specified K21.9 ; Post-menopausal Z78.0 and Migraine without aura and without status migrainosus, not intractable G43.009 [facility] [id number] [place] [address] 32988- 1091 Jan, [place] [address] 70079- 2923 Jan, Generalized anxiety disorder F41.1 ; Major depressive disorder, recurrent episode, moderate F33.1 ; Vascular dementia without behavioral disturbance F01.50 and Unspecified psychosis F29 [place] [id number] [place] [address] 64950- 1304 Jan, Pneumonia of left lower lobe due to infectious organism J18.1 [place] [id number] [place] [address] 95035- 5525 Jan, Migraine without aura and with status migrainosus, not intractable G43.001 [facility] [id number] [place] [address] 10453 -2940 Jan, Migraine without aura and without status migrainosus, not intractable G43.009 [facility] [address] [address]- 1297 Dec, Hematoma T14.8 [facility] [id number] [place] [address] 57358- 5526 Dec, [facility] [address] [place] [address] 86927 -5112 Nov, Fatigue, unspecified type R53.83 [facility] [id number] [place] [address] 08060- 8221 Nov, Scabies B86 and Coronary artery disease involving kaibab coronary artery of kaibab heart with other form of angina pectoris I25.118 [facility] [id number] [place] [address] 33021- 2496 Nov, [facility] [id number] [place] [address] 91024- 2790 Nov, [facility] [id number] [place] [address] 08972- 0880 Oct, [facility] [id number] [place] [address] 35898- 7990 Oct, Generalized anxiety disorder F41.1 and Major depressive disorder, recurrent episode, moderate F33.1 [facility] [address] [place] [address] 79833- 2231 Oct, Cramp of both lower extremities R25.2 [facility] [id number] [place] [address] 39498- 4544 Oct, Leg cramps R25.2 [facility] [id number] [place] [address] 29375- 1389 Oct, Chronic pain syndrome G89.4 [facility] [id number] [place] [address] 27310- 2006 Oct, [facility] [id number] [place] [address] 81713- 5775 Oct, [facility] [id number] [place] [address] 10015- 1311 11 Oct, 2016 Routine gynecological examination Z01.419 and Screening for breast cancer Z12.31 [place] [id number] [place] [address] 26272- 4715 28 Sep, 2016 Diarrhea R19.7 [place] [id number] [place] [address] 08493- 4523 Sep, Back pain M54.9 [place] [id number] [place] [address] 76819- 0710 Sep, [place] [id number] [place] [address] 65700- 9651 Sep, [facility] [place] [id number] [place] [address] 52742 -4344 August, Xeroderma Q80.9 [place] [address] 39655- 2263 August, Dementia without behavioral disturbance, unspecified dementia type F03.90 [place] [id number] [place] [address] 33801- 6201 August, Chronic pain syndrome G89.4 [place] [id number] [place] [address] 68836- 8721 August, [place] [id number] [place] [address] 89637- 7133 August, Hyperlipidemia E78.5 ; Other fatigue R53.83 and Other specified hypotension I95.89 [facility] [id number] [place] [address] 43983 -8072 August, Dysuria R30.0 ; Other fatigue R53.83 and Other specified hypotension I95.89 [place] [id number] [place] [address] 47776- 0688 August, [place] [id number] [place] [address] 36967- 5679 Jul, Pain in left knee M25.562 and Gastroenteritis K52.9 [place] [address] 65914- 1714 Jul, [place] [address] 71804- 2652 Jul, Diarrhea R19.7 [facility] [address] 56167 -8556 Jul, Spider bite, accidental or unintentional, initial encounter T63.301A [place] [address] 01596- 8288 Jul, Primary osteoarthritis of right knee M17.11 and Arthritis M19.90 [place] [address] 60155- 8915 Jul, Generalized anxiety disorder F41.1 and Major depressive disorder, recurrent episode, moderate F33.1 [place] [address] 58960- 0415 07 Jul, 2016 Type 2 diabetes mellitus with diabetic polyneuropathy E11.42 and Temporal headache R51 [place] [address] 08502- 6894 Jul, Back pain M54.9 [place] [address] 39046- 6967 Jul, [place] [address] 37408- 3041 Jul, [place] [id number] [place] [address] 16934- 2878 Jun, Nausea R11.0 [facility] [address] 35625 -8023 Jun, Acute suppurative otitis media of both ears without spontaneous rupture of tympanic membranes, recurrence not specified H66.003 and COPD exacerbation J44.1 [place] [address] [place] [address]- 4902 Jun, Generalized anxiety disorder F41.1 [facility] [address] 59235- 7104 16 Jun, 2016 [facility] [id number] [place] [address] 53844 -7735 Jun, [facility] [address] 41738 -2940 Jun, Shortness of breath R06.02 and COPD exacerbation J44.1 [place] [address] 32313- 7907 Jun, Eczema, unspecified type L30.9 [place] [address] 84308- 5138 Jun, [place] [address] 84357- 8594 May, [place] [address] 93211- 6494 May, Muscle cramping R25.2 [place] [address] 12503- 8473 May, [place] [id number] [place] [address] 86301- 5480 Apr, Diarrhea R19.7 [place] [id number] [place] [address] 94491- 2039 Apr, [place] [id number] [place] [address] 51234- 4911 Apr, Chronic pain syndrome G89.4 [place] [id number] [place] [address] 30862- 2889 Apr, Cramp of both lower extremities R25.2 and Vascular dementia without behavioral disturbance F01.50 [place] [address] 58985- 8793 Apr, Type 2 diabetes mellitus with diabetic polyneuropathy E11.42 and Cigarette nicotine dependence without complication F17.210 [place] [address] 66075- 2844 Mar, Generalized anxiety disorder F41.1 [place] [address] 57755- 0478 Feb, Generalized anxiety disorder F41.1 and Major depressive disorder, recurrent episode, moderate F33.1 [place] [address] 11170- 7813 Feb, [facility] [address] 40879 -8099 Feb, Dysuria R30.0 and Acute cystitis with hematuria N30.01 [place] [address] 74247- 7864 Jan, [place] [address] 80081- 0881 Jan, [place] [address] [address] [address]- [address] Jan, [place] [address] 16085- 1906 Jan, [facility] [address] 39290 -5633 Jan, Wasp sting, accidental or unintentional, initial encounter T63.461A [place] [address] 66792- 5886 Jan, Encounter for immunization Z23 [place] [address] 28119- 3339 Jan, [place] [address] 38685- 2578 Jan, [place] [address] 78594- 4861 28 Dec, 2015 Generalized anxiety disorder F41.1 and Major depressive disorder, recurrent episode, moderate F33.1 [facility] [address] [place] [id number] [place] [address] 87354- 2378 21 Dec, 2015 Routine gynecological examination Z01.419 ; Postmenopausal Z78.0 ; Screening breast examination Z12.39 ; Osteopenia M85.80 and Breast cancer screening Z12.39 [facility] [address] [place] [id number] [place] [address] 81333- 1391 20 Dec, 2015 [facility] [address] [place] [id number] [place] [address] 64624- 7529 19 Dec, 2015 [facility] [address] [place] [id number] [place] [address] 02518- 8873 16 Dec, 2015 [facility] [address] [place] [id number] [place] [address] 93767- 8168 Dec, [facility] [address] [place] [id number] [place] [address] 89375- 2069 14 Dec, 2015 [facility] [address] [place] [id number] [place] [address] 71794- 0046 Dec, [facility] [address] [place] [id number] [place] [address] 29525- 5419 Nov, [facility] [id number] [place] [address] 24986 -7421 Nov, Cough R05 ; Other viral agents as the cause of diseases classified elsewhere B97.89 and Acute upper respiratory infection, unspecified J06.9 [facility] [address] [place] [id number] [place] [address] 09480- 3844 Nov, [facility] [address] [place] [id number] [place] [address] 16578- 2749 Nov, [facility] [address] [place] [id number] [place] [address] 17186- 5604 Nov, [facility] [address] [place] [id number] [address]- 8885 15 Nov, 2015 [facility] [address] [place] [id number] [place] [address] 89660- 1385 Nov, [facility] [address] [place] [id number] [place] [address] 08460- 7176 Oct, [facility] [address] [place] [id number] [place] [address] 67488- 6383 Oct, [facility] [address] [place] [id number] [place] [address] 98689- 7040 Oct, [facility] [address] [place] [id number] [place] [address] 68956- 9297 Oct, Chronic pain syndrome G89.4 [facility] [address] [place] [id number] [place] [address] 42734- 3532 Sep, Generalized anxiety disorder F41.1 and Major depressive disorder, recurrent episode, moderate F33.1 [facility] [address] [place] [id number] [place] [address] 40083- 8211 Sep, [facility] [address] [place] [id number] [place] [address] 49761- 6616 Sep, [facility] [address] [place] [id number] [place] [address] 03313- 1496 Sep, Generalized anxiety disorder F41.1 [facility] [address] [place] [id number] [place] [address] 91173- 8662 Sep, Cramp of both lower extremities R25.2 and Cervicalgia M54.2 [facility] [id number] [place] [address] 82671- 2674 Sep, Generalized anxiety disorder F41.1 [facility] [address] [place] [id number] [place] [address] 81048- 1431 Sep, [facility] [id number] [place] [address] 15601 -5616 August, Rash R21 ; Itching L29.9 and Allergic response, subsequent encounter T78.40XD [place] [address] [place] [id number] [place] [address] 32383- 0918 August, Primary insomnia F51.01 [facility] [address] [place] [id number] [place] [address] 06360 -7713 August, Rash R21 ; Itching L29.9 and Allergic response, initial encounter T78.40XA [place] [address] [place] [id number] [place] [address] 24255- 9488 August, [place] [address] [place] [id number] [place] [address] 48472- 7407 August, Cramp of both lower extremities R25.2 [place] [address] [place] [id number] [place] [address] 34487- 4522 August, Back pain M54.9 [place] [address] [place] [id number] [place] [address] 18966- 7594 August, [place] [address] [place] [id number] [place] [address] 99416- 1451 August, [facility] [address] [place] [id number] [place] [address] 35852 -3193 August, Cramp of both lower extremities R25.2 [place] [address] [place] [id number] [place] [address] 24539- 6060 August, [place] [address] [place] [id number] [place] [address] 26909- 6782 August, Syncope R55 ; Paroxysmal atrial fibrillation I48.0 ; Dementia without behavioral disturbance, unspecified dementia type F03.90 and Chronic pain syndrome G89.4 [place] [address] [place] [id number] [place] [address] 36540- 8223 August, Type 2 diabetes mellitus with diabetic polyneuropathy E11.42 and Syncope R55 [place] [address] [place] [id number] [place] [address] 76430- 0858 Jul, [facility] [address] [facility] [id number] [address]- 6197 Jul, [facility] [address] [facility] [id number] [address]- 3148 Jul, [facility] [address] [facility] [id number] [address]- 8114 Jul, [facility] [address] [facility] [id number] [address]- 5755 Jul, [facility] [address] [facility] [id number] [address]- 5568 Jul, UTI (urinary tract infection) N39.0 [facility] [address] [address]- 7391 Jul, [facility] [address] [address]- 4639 Jul, Major depressive disorder, recurrent episode, moderate F33.1 and Generalized anxiety disorder F41.1 [facility] [address] [address]- 1581 Jul, Generalized anxiety disorder F41.1 [facility] [address] [address]- 4344 Jul, Diarrhea R19.7 [facility] [address] [address]- 8386 Jul, [facility] [address] [place] [id number] [address]- 1806 Jun, [facility] [address] [place] [id number] [address]- 2671 Jun, Eczema L30.9 [facility] [address] [facility] [id number] [address]- 3949 Jun, [facility] [address] [place] [id number] [address]- 7167 17 Jun, 2015 COPD (chronic obstructive pulmonary disease) J44.9 [facility] [address] [address]- 2217 Jun, [facility] [address] [address]- 0562 Jun, Major depressive disorder, recurrent episode, moderate F33.1 and Generalized anxiety disorder F41.1 [facility] [address] [address]- 1384 May, [facility] [address] [address]- 3394 May, UTI (urinary tract infection) N39.0 [facility] [address] [address]- 1919 May, [facility] [address] [address]- 6673 May, [facility] [address] [address]- 1436 May, [facility] [address] [address]- 8830 May, [facility] [address] [address]- 8369 Apr, Major depressive disorder, recurrent episode, moderate F33.1 and Generalized anxiety disorder F41.1 [facility] [address] [address]- 4574 Apr, COPD (chronic obstructive pulmonary disease) J44.9 [facility] [address] [address]- 1452 Apr, [facility] [address] [address]- 5039 Apr, Atrial flutter I48.92 [facility] [address] [address]- 8640 Apr, [facility] [address] [address]- 2906 Apr, [facility] [address] [place] [id number] [place] [address] 47021- 4574 Mar, [facility] [address] [place] [id number] [place] [address] 39414- 1379 Mar, [facility] [address] [place] [id number] [place] [address] 99122- 4922 Mar, [facility] [address] [place] [id number] [place] [address] 73031- 4270 Mar, Hyperlipidemia E78.5 ; Type 2 diabetes mellitus with diabetic polyneuropathy E11.42 ; Major depressive disorder, recurrent episode, moderate F33.1 and Chronic pain syndrome G89.4 [facility] [address] [place] [id number] [place] [address] 73762- 9547 Mar, [facility] [address] [place] [id number] [place] [address] 30631- 9443 Mar, [facility] [address] [place] [id number] [place] [address] 59403- 2984 Mar, [facility] [address] [place] [id number] [place] [address] 17750- 5112 Mar, [facility] [id number] [place] [address] 23351- 2844 Feb, COPD (chronic obstructive pulmonary disease) J44.9 and Back pain M54.9 [facility] [address] [address]- 1671 Feb, [facility] [address] [place] [id number] [place] [address] 82532- 4267 Feb, [facility] [address] [address]- 6094 Feb, [facility] [address] [place] [id number] [place] [address] 76842- 2865 Feb, [facility] [address] [address]- 4343 Feb, [facility] [address] [place] [id number] [place] [address] 41651- 2970 Feb, [facility] [id number] [place] [address] 98986- 4558 Feb, [facility] [address] [place] [id number] [place] [address] 51604- 6043 Feb, [facility] [id number] [place] [address] 75436- 1271 Feb, Diabetes E11.9 ; Back pain M54.9 and COPD (chronic obstructive pulmonary disease) J44.9 [facility] [address] [place] [id number] [place] [address] 93058- 8148 Jan, [facility] [address] [place] [id number] [place] [address] 92999- 3002 Jan, Major depression, recurrent F33.9 and Generalized anxiety disorder F41.1 [facility] [address] [place] [id number] [place] [address] 65762- 5531 Jan, Chronic pain G89.29 [facility] [id number] [place] [address] 34507- 9386 Jan, [facility] [address] [place] [id number] [place] [address] 27541- 7039 Jan, [facility] [id number] [place] [address] 42826- 6553 Jan, [facility] [address] [place] [id number] [place] [address] 02156- 3505 Jan, [facility] [id number] [place] [address] 41403- 7889 Jan, Nicotine dependence F17.200 [facility] [address] [place] [id number] [place] [address] 53681- 5076 Jan, Nicotine dependence F17.200 and Back pain M54.9 [facility] [address] [place] [id number] [place] [address] 49832- 2709 Jan, [facility] [address] [place] [id number] [place] [address] 85956- 8271 28 Dec, 2014 [facility] [address] [place] [id number] [place] [address] 68519- 9472 25 Dec, 2014 Anxiety, generalized 300.02 and Major depression, recurrent 296.30 [facility] [address] [place] [id number] [place] [address] 57771- 3985 24 Dec, 2014 [facility] [address] 27458- 7324 21 Dec, 2014 [facility] [address] [place] [id number] [place] [address] 32506- 7909 17 Dec, 2014 [facility] [address] [place] [id number] [place] [address] 39112- 7453 15 Dec, 2014 [facility] [address] [place] [id number] [place] [address] 07222- 0910 14 Dec, 2014 [facility] [address] [place] [id number] [place] [address] 02720- 0669 11 Dec, 2014 [facility] [address] [place] [id number] [place] [address] 76747- 2125 10 Dec, 2014 [facility] [address] [place] [id number] [place] [address] 14319- 7839 08 Dec, 2014 Skin tear 879.8 [facility] [address] [place] [id number] [place] [address] 08127- 3253 08 Dec, 2014 Routine gynecological examination V72.31 ; Breast cancer screening V76.10 and Family history of breast cancer in first degree relative V16.3 [facility] [address] [place] [id number] [place] [address] 02284- 4477 03 Dec, 2014 [facility] [address] [place] [id number] [place] [address] 86116- 7055 Dec, [facility] [address] [address]- 0155 Nov, [facility] [id number] [place] [address] 57935- 5196 Nov, [facility] [address] [place] [id number] [place] [address] 01850- 6274 Nov, Poor balance 781.99 and Vascular dementia, uncomplicated 290.40 [facility] [id number] [place] [address] 32865- 5748 Nov, [facility] [address] [place] [id number] [place] [address] 29810- 8799 Nov, Major depression, recurrent 296.30 and Anxiety, generalized 300.02 [facility] [address] [place] [id number] [place] [address] 22883- 4713 Nov, [facility] [id number] [place] [address] 54428- 0802 Nov, [facility] [id number] [place] [address] 77513- 1850 Nov, [facility] [address] [address]- 7843 Nov, [facility] [address] [address]- 7394 Nov, Vascular dementia, uncomplicated 290.40 and Lumbago 724.2 [facility] [address] [address]- 4115 Nov, [facility] [address] [place] [id number] [address]- 5233 Nov, [facility] [address] [address]- 1275 Nov, [facility] [address] [address]- 4390 Oct, [facility] [address] [address]- 6533 Oct, [facility] [address] [address]- 6270 Oct, [facility] [id number] [address]- 8823 Oct, COPD (chronic obstructive pulmonary disease) 496 and Hyperlipidemia 272.4 [facility] [address] [address]- 4659 Oct, Major depression, recurrent 296.30 and Anxiety, generalized 300.02 [facility] [id number] [address]- 7621 Oct, [facility] [address] [address]- 7987 Oct, [facility] [address] [address]- 3842 Oct, [facility] [address] [address]- 8147 Sep, Lumbago 724.2 and Anxiety state, unspecified 300.00 [facility] [address] [address]- 2695 Sep, [facility] [address] [address]- 1929 Sep, [facility] [address] [address]- 5107 August, [facility] [address] [address]- 6544 August, Major depression, recurrent 296.30 ; Anxiety, generalized 300.02 and No condition on [place] II V71.09 [facility] [address] [address]- 8364 August, [facility] [address] [id number] [address]- 9135 August, [facility] [place] [facility] [address] [id number] [place] [address]- 3305 29 Jul, 2014 [facility] [place] [facility] [address] [id number] [place] [address]- 4896 14 Jul, 2014 [facility] [place] [facility] [address] [id number] [place] [address]- 3422 Jul, [facility] [place] [facility] [address] [id number] [place] [address]- 3464 30 Jun, 2014 [facility] [place] [facility] [address] [id number] [place] [address]- 5417 30 Jun, 2014 [facility] [place] [facility] [address] [id number] [place] [address]- 7541 27 Jun, 2014 [facility] [place] [facility] [address] [id number] [place] [address]- 6672 27 Jun, 2014 [facility] [place] [facility] [address] [id number] [place] [address]- 0880 26 Jun, 2014 [facility] [place] [facility] [address] [id number] [place] [address]- 2050 23 Jun, 2014 [facility] [place] [facility] [address] [id number] [place] [address]- 8430 23 Jun, 2014 [facility] [place] [facility] [address] [id number] [place] [address]- 9986 17 Jun, 2014 [facility] [place] [facility] [address] [id number] [place] [address]- 8604 13 Jun, 2014 [facility] [place] [facility] [address] [id number] [place] [address]- 2983 13 Jun, 2014 [facility] [place] [facility] [address] [id number] [place] [address]- 5433 10 Jun, 2014 [facility] [place] [facility] [address] [id number] [place] [address]- 0439 10 Jun, 2014 [facility] [place] [facility] [address] [id number] [place] [address]- 9501 Jun, 2014 [facility] [place] [facility] [address] [id number] [place] [address]- 7291 Jun, 2014 [facility] [place] [facility] [address] [id number] [place] [address]- 3503 Jun, 2014 [facility] [place] [facility] [address] [id number] [place] [address]- 2100 Jun, 2014 [facility] [place] [facility] [address] [id number] [place] [address]- 8214 May, 2014 [facility] [place] [facility] [address] [id number] [place] [address]- 3656 May, 2014 [facility] [place] [facility] [address] [id number] [place] [address]- 0828 May, 2014 [facility] [place] [facility] [address] [id number] [place] [address]- 7930 May, 2014 [facility] [place] [facility] [address] [id number] [place] [address]- 0637 May, 2014 [facility] [place] [facility] [address] [id number] [place] [address]- 5188 May, 2014 [facility] [place] [facility] [address] [id number] [place] [address]- 6161 May, 2014 [facility] [place] [facility] [address] [id number] [place] [address]- 8311 May, 2014 [facility] [place] [facility] [address] [id number] [place] [address]- 4916 May, 2014 [facility] [place] [facility] [address] [id number] [place] [address]- 9666 May, 2014 [facility] [place] [facility] [address] [facility] [id number] [place] [address]- 9494 06 May, 2014 [facility] [place] [facility] [address] [id number] [place] [address]- 7177 May, [facility] [place] [facility] [address] [id number] [place] [address]- 6194 May, [facility] [place] [facility] [address] [id number] [place] [address] May, [facility] [place] [facility] [address] [id number] [place] [address] Apr, [facility] [place] [facility] [address] [id number] [place] [address] Apr, [facility] [place] [facility] [address] [id number] [place] [address] Apr, [facility] [place] [facility] [address] [id number] [place] [address] Apr, [facility] [place] [facility] [address] [id number] [place] [address] Apr, [facility] [place] [facility] [address] [id number] [place] [address] Apr, [facility] [place] [facility] [address] [id number] [place] [address] Apr, [facility] [place] [facility] [address] [id number] [place] [address] Apr, [facility] [place] [facility] [address] [id number] [place] [address] Apr, [facility] [place] [facility] [address] [id number] [place] [address] Apr, [facility] [place] [facility] [address] [id number] [place] [address] Apr, [facility] [place] [facility] [address] [id number] [place] [address] Apr, [facility] [place] [facility] [address] [id number] [place] [address] 31 Mar, 2014 [facility] [place] [facility] [address] [id number] [place] [address] 31 Mar, 2014 [facility] [place] [facility] [address] [id number] [place] [address] 30 Mar, 2014 [facility] [place] [facility] [address] [id number] [place] [address] 30 Mar, 2014 [facility] [place] [facility] [address] [id number] [place] [address] 29 Mar, 2014 [facility] [place] [facility] [address] [id number] [place] [address] 29 Mar, 2014 [facility] [place] [facility] [address] [id number] [place] [address] Mar, [facility] [place] [facility] [address] [id number] [place] [address] Mar, [facility] [place] [facility] [address] [id number] [place] [address] 15 Mar, 2014 [facility] [place] [facility] [address] [id number] [place] [address] 15 Mar, 2014 [facility] [place] [facility] [address] [id number] [place] [address] 15 Mar, 2014 [facility] [place] [facility] [address] [id number] [place] [address] 15 Mar, 2014 [facility] [place] [facility] [address] [id number] [place] [address] 15 Mar, 2014 [facility] [place] [facility] [address] [id number] [place] [address] 15 Mar, 2014 [facility] [place] [facility] [address] [id number] [place] [address] 08 Mar, 2014 [facility] [place] [facility] [address] [id number] [place] [address] 08 Mar, 2014 [facility] [place] [facility] [address] [id number] [place] [address] Mar, [facility] [place] [facility] [address] [id number] [place] [address] 2807 Mar, [facility] [place] [facility] [address] [id number] [place] [address]- 2778 Mar, [facility] [place] [facility] [address] [id number] [place] [address] 2747 Mar, [facility] [place] [facility] [address] [id number] [place] [address] 2730 Feb, [facility] [place] [facility] [address] [id number] [place] [address] 8655 Feb, [facility] [place] [facility] [address] [id number] [place] [address]- 3246 Feb, [facility] [place] [facility] [address] [id number] [place] [address] 3316 Feb, [facility] [place] [facility] [address] [id number] [place] [address]- 0249 Feb, [facility] [place] [facility] [address] [id number] [place] [address]- 7660 Feb, [facility] [place] [facility] [address] [id number] [place] [address]- 0124 Feb, [facility] [place] [facility] [address] [id number] [place] [address]- 7034 Feb, [facility] [place] [facility] [address] [id number] [place] [address]- 7968 Feb, [facility] [place] [facility] [address] [id number] [place] [address]- 5887 Feb, [facility] [place] [facility] [address] [id number] [place] [address]- 5468 Feb, [facility] [place] [facility] [address] [id number] [place] [address] 2661 Feb, [facility] [place] [facility] [address] [id number] [place] [address]- 0159 Feb, [facility] [place] [facility] [address] [id number] [place] [address]- 3349 Feb, [facility] [place] [facility] [address] [id number] [place] [address] Feb, [facility] [place] [facility] [address] [id number] [place] [address]- 0899 Feb, [facility] [place] [facility] [address] [id number] [place] [address]- 8947 Feb, [facility] [place] [facility] [address] [id number] [place] [address]- 5807 Jan, [facility] [place] [facility] [address] [id number] [place] [address]- 3765 Jan, [facility] [place] [facility] [address] [id number] [place] [address]- 9457 Jan, [facility] [place] [facility] [address] [id number] [place] [address]- 9760 Jan, [facility] [place] [facility] [address] [id number] [place] [address]- 0097 Jan, [facility] [place] [facility] [address] [id number] [place] [address]- 5319 Jan, [facility] [place] [facility] [address] [id number] [place] [address]- 9303 Jan, [facility] [place] [facility] [address] [id number] [place] [address]- 0601 Jan, [facility] [place] [facility] [address] [id number] [place] [address]- 9169 Jan, [facility] [place] [facility] [address] [id number] [place] [address]- 3842 Jan, [facility] [place] [facility] [address] [id number] [place] [address]- 2585 Jan, [facility] [place] [facility] [address] [id number] [place] [address]- 7011 Dec, [facility] [place] [facility] [address] [id number] [place] [address] Dec, [facility] [place] [facility] [address] [id number] [place] [address]- 4116 Nov, [facility] [place] [facility] [address] [id number] [place] [address]- 5383 Nov, [facility] [place] [facility] [address] [id number] [place] [address]- 1665 Nov, [facility] [place] [facility] [address] [id number] [place] [address]- 3294 Nov, [facility] [place] [facility] [address] [id number] [place] [address]- 1380 Nov, [facility] [place] [facility] [address] [id number] [place] [address]- 0115 Nov, [facility] [place] [facility] [address] [id number] [place] [address]- 1241 Nov, [facility] [place] [facility] [address] [id number] [place] [address]- 4442 Oct, [facility] [place] [facility] [address] [id number] [place] [address]- 3808 Oct, [facility] [place] [facility] [address] [id number] [place] [address]- 1737 Oct, [facility] [place] [facility] [address] [id number] [place] [address]- 3138 Oct, [facility] [place] [facility] [address] [id number] [place] [address]- 6374 Sep, [facility] [place] [facility] [address] [id number] [place] [address]- 3444 Sep, [facility] [place] [facility] [address] [id number] [place] [address]- 1398 Sep, [facility] [place] [facility] [address] [id number] [place] [address]- 9897 Sep, [facility] [place] [facility] [address] [id number] [place] [address]- 4908 Sep, [facility] [place] [facility] [address] [id number] [place] [address]- 5988 Sep, [facility] [place] [facility] [address] [id number] [place] [address]- 3111 Sep, [facility] [place] [facility] [address] [id number] [place] [address]- 5059 Sep, [facility] [place] [facility] [address] [id number] [place] [address]- 6555 Sep, [facility] [place] [facility] [address] [id number] [place] [address]- 9078 Sep, [facility] [place] [facility] [address] [id number] [place] [address]- 6417 Sep, [facility] [place] [facility] [address] [id number] [place] [address]- 4083 Sep, [facility] [place] [facility] [address] [id number] [place] [address]- 8289 Sep, [facility] [place] [facility] [address] [id number] [place] [address]- 2747 Sep, [facility] [place] [facility] [address] [id number] [place] [address]- 3002 August, [facility] [place] [facility] [address] [id number] [place] [address]- 6336 August, [facility] [place] [facility] [address] [id number] [place] [address]- 7672 August, [facility] [place] [facility] [address] [id number] [place] [address]- 7092 August, [facility] [address] [id number] [place] [address]- 4508 August, [facility] [place] [facility] [address] [id number] [place] [address]- 4929 August, [facility] [place] [facility] [address] [id number] [place] August, [facility] [place] [facility] [address] [id number] [place] [address]- 3183 August, [facility] [place] [facility] [address] [id number] [place] [address]- 6559 August, [facility] [place] [facility] [address] [id number] [place] [address]- 0677 August, [facility] [place] [facility] [address] [id number] [place] [address]- 2381 August, [facility] [place] [facility] [address] [id number] [place] [address]- 0874 August, [facility] [place] [facility] [address] [id number] [place] [address]- 7424 August, [facility] [place] [facility] [address] [id number] [place] [address]- 1066 August, [facility] [place] [facility] [address] [id number] [place] [address]- 8168 August, [facility] [place] [facility] [address] [id number] [place] [address]- 5926 August, [facility] [place] [facility] [address] [id number] [place] [address]- 8633 August, [facility] [place] [facility] [address] [id number] [place] [address]- 5899 August, [facility] [place] [facility] [address] [id number] [place] [address]- 2415 August, [facility] [place] [facility] [address] [id number] [place] [address]- 2881 Jul, [facility] [place] [facility] [address] [id number] [place] [address]- 0789 Jul, [facility] [place] [facility] [address] [id number] [place] [address]- 2939 Jul, [facility] [place] [facility] [address] [id number] [place] [address]- 4029 Jul, [facility] [place] [facility] [address] [id number] [place] [address]- 4736 Jun, [facility] [place] [facility] [address] [id number] [place] [address]- 9779 Jun, [facility] [place] [facility] [address] [id number] [place] [address]- 5484 Jun, [facility] [place] [facility] [address] [id number] [place] [address]- 2136 Jun, [facility] [place] [facility] [address] [id number] [place] [address]- 1984 Jun, [facility] [place] [facility] [address] [id number] [place] [address]- 5320 Jun, [facility] [place] [facility] [address] [id number] [place] [address]- 6459 Jun, [facility] [place] [facility] [address] [id number] [place] [address]- 9114 Jun, [facility] [place] [facility] [address] [id number] [place] [address]- 3043 Jun, [facility] [place] [facility] [address] [id number] [place] [address]- 2819 Jun, [facility] [place] [facility] [address] [id number] [place] [address]- 5524 May, [facility] [place] [facility] [address] [id number] [place] [address]- 8829 May, [facility] [place] [facility] [address] [id number] [place] [address]- 1483 May, [facility] [place] [facility] [address] [id number] [place] [address]- 6006 May, [facility] [place] [facility] [address] [id number] [place] [address]- 0156 May, [facility] [place] [facility] [address] [id number] [place] [address]- 3886 May, 2013 [facility] [place] [facility] [address] [id number] [place] [address]- 7953 20 May, 2013 [facility] [place] [facility] [address] [id number] [place] [address]- 6085 May, [facility] [place] [facility] [address] [facility] [id number] [place] [address]- 2928 May, [facility] [place] [facility] [address] [id number] [place] [address]- 9654 18 May, 2013 [facility] [place] [facility] [address] [id number] [place] [address]- 8291 18 May, 2013 [facility] [place] [facility] [address] [facility] [id number] [place] [address]- 7513 17 May, 2013 [facility] [place] [facility] [address] [facility] [id number] [place] [address]- 0747 May, 2013 [facility] [place] [facility] [address] [id number] [place] [address]- 1274 May, 2013 [facility] [place] [facility] [address] [id number] [place] [address]- 0538 10 May, 2013 [facility] [place] [facility] [address] [id number] [place] [address]- 5337 07 May, 2013 [facility] [place] [facility] [address] [facility] [id number] [place] [address]- 1138 07 May, 2013 [facility] [place] [facility] [address] [id number] [place] [address]- 6219 17 Apr, 2013 [facility] [address] [id number] [place] [address]- 3520 Apr, [facility] [address] [id number] [place] [address]- 9136 15 Apr, 2013 [facility] [address] [id number] [place] [address]- 2186 Apr, [facility] [address] [id number] [place] [address]- 7624 Apr, [facility] [address] [id number] [place] [address]- 2730 Apr, [facility] [address] [id number] [place] [address]- 7595 Apr, [facility] [address] [id number] [place] [address]- 1140 Mar, [facility] [address] [id number] [place] [address]- 5062 Mar, [facility] [address] [id number] [place] [address]- 5440 Mar, [facility] [address] [id number] [place] [address]- 3275 Mar, [facility] [address] [id number] [place] [address]- 4130 Mar, [facility] [address] [id number] [place] [address]- 2393 Mar, [facility] [address] [id number] [place] [address]- 9789 Mar, [facility] [address] [id number] [place] [address]- 1916 Mar, [facility] [address] [id number] [place] Mar, [facility] [address] [id number] [place] [address]- 6240 Mar, [facility] [place] [facility] [address] [id number] [place] [address]- 5901 Mar, [facility] [place] [facility] [address] [id number] [place] [address]- 7188 Feb, [facility] [place] [facility] [address] [id number] [place] [address]- 1942 Feb, [facility] [place] [facility] [address] [id number] [place] [address]- 4940 Feb, [facility] [place] [facility] [address] [id number] [place] [address]- 7718 Feb, [facility] [place] [facility] [address] [id number] [place] [address]- 8805 Feb, [facility] [place] [facility] [address] [id number] [place] [address]- 6227 Feb, [facility] [place] [facility] [address] [id number] [place] [address]- 3378 15 Feb, 2013 [facility] [place] [facility] [address] [id number] [place] [address]- 1395 14 Feb, 2013 [facility] [place] [facility] [address] [id number] [place] [address]- 5484 14 Feb, 2013 [facility] [place] [facility] [address] [id number] [place] [address]- 8027 13 Feb, 2013 [facility] [place] [facility] [address] [id number] [place] [address]- 1013 13 Feb, 2013 [facility] [place] [facility] [address] [id number] [place] [address]- 1428 12 Feb, 2013 [facility] [place] [facility] [address] [id number] [place] [address]- 3499 12 Feb, 2013 [facility] [place] [facility] [address] [id number] [place] [address]- 7466 Feb, [facility] [place] [facility] [address] [id number] [place] [address]- 1143 Feb, [facility] [place] [facility] [address] [id number] [place] [address]- 2920 Feb, [facility] [place] [facility] [address] [id number] [place] [address]- 3755 Jan, [facility] [place] [facility] [address] [id number] [place] [address]- 3853 Jan, [facility] [place] [facility] [address] [id number] [place] [address]- 4129 Jan, [facility] [place] [facility] [address] [id number] [place] [address]- 6217 Jan, [facility] [place] [facility] [address] [id number] [place] [address]- 8777 Jan, [facility] [place] [facility] [address] [id number] [place] [address]- 2869 Jan, [facility] [place] [facility] [address] [facility] [id number] [place] [address]- 6041 Jan, [facility] [place] [facility] [address] [facility] [id number] [place] [address]- 4227 Jan, [facility] [place] [facility] [address] [id number] [place] [address]- 4670 10 Jan, 2013 [facility] [place] [facility] [address] [id number] [place] [address]- 3760 27 Dec, 2012 [facility] [place] [facility] [address] [id number] [place] [address]- 3520 20 Dec, 2012 [facility] [place] [facility] [address] [facility] [id number] [place] [address]- 7600 19 Dec, 2012 [facility] [place] [facility] [address] [facility] [id number] [place] [address]- 7243 10 Dec, 2012 [facility] [place] [facility] [address] [id number] [place] [address]- 7163 Dec, [facility] [place] [facility] [address] [id number] [place] [address]- 9197 Dec, [facility] [place] [facility] [address] [id number] [place] [address]- 5248 Nov, [facility] [place] [facility] [address] [id number] [place] [address]- 0673 Nov, [facility] [place] [facility] [address] [id number] [place] [address]- 9847 Nov, [facility] [place] [facility] [address] [id number] [place] [address]- 5444 Nov, [facility] [place] [facility] [address] [id number] [place] [address]- 1347 Nov, [facility] [place] [facility] [address] [id number] [place] [address]- 7196 Nov, [facility] [place] [facility] [address] [id number] [place] [address]- 6353 Nov, [facility] [place] [facility] [address] [id number] [place] [address]- 6212 Nov, [facility] [place] [facility] [address] [id number] [place] [address]- 2758 Nov, [facility] [place] [facility] [address] [id number] [place] [address]- 0274 Nov, [facility] [place] [facility] [address] [id number] [place] [address]- 1061 Oct, [facility] [place] [facility] [address] [id number] [place] [address]- 9571 Oct, [facility] [place] [facility] [address] [id number] [place] [address]- 4434 Oct, [facility] [place] [facility] [address] [id number] [place] [address]- 7625 Oct, [facility] [address] [id number] [place] [address]- 3874 Oct, [facility] [place] [facility] [address] [id number] [place] [address]- 3790 Oct, [facility] [place] [facility] [address] [id number] [place] [address]- 5885 Oct, [facility] [place] [facility] [address] [id number] [place] [address] Oct, [facility] [address] [id number] [place] [address] Sep, [facility] [place] [facility] [address] [id number] [place] [address] Sep, [facility] [place] [facility] [address] [id number] [place] [address] Sep, [facility] [place] [facility] [address] [id number] [place] [address] Sep, [facility] [place] [facility] [address] [id number] [place] [address] Sep, [facility] [place] [facility] [address] [id number] [place] [address] Sep, [facility] [place] [facility] [address] [id number] [place] [address] Sep, [facility] [place] [facility] [address] [id number] [place] [address] Sep, [facility] [place] [facility] [address] [id number] [place] [address] August, [facility] [place] [facility] [address] [id number] [place] [address] August, [facility] [place] [facility] [address] [id number] [place] [address] August, [facility] [place] [facility] [address] [id number] [place] [address] August, [facility] [address] [id number] [place] [address] August, [facility] [address] [id number] [place] [address] Jul, [facility] [address] [id number] [place] [address] Jul, [facility] [address] [id number] [place] [address] Jul, [facility] [address] [id number] [place] [address] Jul, [facility] [address] [id number] [place] [address] Jul, [facility] [address] [id number] [place] [address] Jun, [facility] [address] [id number] [place] [address] 18 Jun, 2012 [facility] [address] [id number] [place] [address] 15 Jun, 2012 [facility] [address] [id number] [place] [address]68 14 Jun, 2012 [facility] [address] [id number] [place] [address]184 Jun, [facility] [place] [facility] [address] [id number] [place] [address] 1333 Jun, [facility] [place] [facility] [address] [id number] [place] [address]44 Jun, [facility] [place] [facility] [address] [id number] [place] [address]148 Jun, [facility] [address] [id number] [place] [address] Jun, [facility] [address] [id number] [place] [address] May, [facility] [address] [id number] [place] [address] May, [facility] [address] [id number] [place] [address]286 May, [facility] [address] [id number] [place] [address] May, [facility] [address] [id number] [place] [address]65 Apr, [facility] [address] [id number] [place] [address]678 Apr, [facility] [address] [id number] [place] [address]951 Apr, [facility] [address] [id number] [place] [address]645 Apr, [facility] [address] [id number] [place] [address] Apr, [facility] [address] [id number] [place] [address]- 5549 Apr, [facility] [address] [id number] [place] [address] 69[address] Apr, [facility] [address] [id number] [place] [address] Mar, [facility] [address] [place] [id number] Mar, [facility] [address] [id number] [place] [address]653 Mar, [facility] [address] [id number] [place] [address]- 1099 Mar, [facility] [address] [id number] [place] [address]349 Mar, [facility] [place] [facility] [address] [id number] [place] [address] Mar, [facility] [place] [facility] [address] [id number] [place] [address]76 Mar, [facility] [place] [facility] [address] [facility] [id number] [place] [address] Mar, [facility] [place] [facility] [address] [id number] [place] [address] 1596 Mar, [facility] [place] [facility] [address] [id number] [place] [address]- 3462 Mar, [facility] [place] [facility] [address] [id number] [place] [address]- 4382 Mar, [facility] [place] [facility] [address] [facility] [id number] [place] [address] 8661 Mar, [facility] [place] [facility] [address] [id number] [place] [address] 4082 Mar, [facility] [place] [facility] [address] [id number] [place] [address]- 9395 Mar, [facility] [place] [facility] [address] [id number] [place] [address]- 6467 Mar, [facility] [place] [facility] [address] [id number] [place] [address]- [address] Mar, [facility] [place] [facility] [address] [id number] [place] [address]- 119[address] Mar, [facility] [place] [facility] [address] [id number] [place] [address]- 9486 Feb, [facility] [place] [facility] [address] [id number] [place] [address]- 4142 Feb, [facility] [place] [facility] [address] [facility] [id number] [place] [address]- 8778 Feb, [facility] [place] [facility] [address] [id number] [place] [address]- 7508 Feb, [facility] [place] [facility] [address] [id number] [place] [address]- 3761 Feb, [facility] [place] [facility] [address] [id number] [place] [address]- 3305 Feb, [facility] [place] [facility] [address] [id number] [place] [address]- 5792 Feb, [facility] [place] [facility] [address] [id number] [place] [address]- 7439 Feb, [facility] [place] [facility] [address] [id number] [place] [address]- 9454 Feb, [facility] [place] [facility] [address] [id number] [place] [address]- 8457 Feb, [facility] [place] [facility] [address] [id number] [place] [address]- 2374 Feb, [facility] [place] [facility] [address] [id number] [place] [address]- 3230 Feb, [facility] [place] [facility] [address] [id number] [place] [address]- 9881 Feb, [facility] [place] [facility] [address] [facility] [id number] [place] [address]- 7816 Feb, [facility] [place] [facility] [address] [id number] [place] [address]- 4474 Feb, [facility] [place] [facility] [address] [id number] [place] [address]- 5982 Feb, [facility] [place] [facility] [address] [id number] [place] [address]- 5418 Jan, [facility] [place] [facility] [address] [id number] [place] [address] Jan, [facility] [place] [facility] [address] [id number] [place] [address] Jan, [facility] [place] [facility] [address] [id number] [place] [address] Jan, 2011 [facility] [place] [facility] [address] [id number] [place] [address] 90[address] Jan, [facility] [place] [facility] [address] [id number] [place] [address] 5566 Jan, [facility] [place] [facility] [address] [id number] [place] [address] 7737 Jan, [facility] [place] [facility] [address] [id number] [place] [address]- 6[address] Jan, [facility] [place] [facility] [address] [id number] [place] [address]- 45[address] Jan, [facility] [place] [facility] [address] [id number] [place] [address]- [address]281 Jan, [facility] [place] [facility] [address] [id number] [place] [address]- 9604 Jan, [facility] [place] [facility] [address] [id number] [place] [address]- 7759 Jan, [facility] [place] [facility] [address] [id number] [place] [address] 6[address] Jan, [facility] [place] [facility] [address] [id number] [place] [address]- 0949 Jan, [facility] [place] [facility] [address] [id number] [place] [address]- 3428 Jan, [facility] [place] [facility] [address] [id number] [place] [address]- 5224 Jan, [facility] [place] [facility] [address] [id number] [place] [address]- 6684 Jan, [facility] [place] [facility] [address] [id number] [place] [address]- 1372 Dec, [facility] [place] [facility] [address] [id number] [place] [address]- 3906 20 Dec, 2011 [facility] [place] [facility] [address] [id number] [place] [address] 2546 18 Dec, 2011 [facility] [place] [facility] [address] [id number] [place] [address] 2546 18 Dec, 2011 [facility] [place] [facility] [address] [id number] [place] [address] 2546 10 Dec, 2011 [facility] [place] [facility] [address] [id number] [place] [address] 2546 10 Dec, 2011 [facility] [place] [facility] [address] [id number] [place] [address] 2546 10 Dec, 2011 [facility] [place] [facility] [address] [id number] [place] [address]- 1526 07 Dec, 2011 [facility] [place] [facility] [address] [id number] [place] [address]- 7837 30 Nov, 2011 [facility] [place] [facility] [address] [id number] [place] [address] 8108 Nov, [facility] [place] [facility] [address] [id number] [place] [address] 8404 Nov, [facility] [place] [facility] [address] [id number] [place] [address]- 2540 Nov, [facility] [place] [facility] [address] [id number] [place] [address] 2543 Nov, [facility] [place] [facility] [address] [id number] [place] [address]- 2542 Nov, [facility] [place] [facility] [address] [id number] [place] [address] 2545 Oct, [facility] [place] [facility] [address] [id number] [place] [address]- 2547 Oct, [facility] [place] [facility] [address] [id number] [place] [address]- 2541 Oct, [facility] [place] [facility] [address] [id number] [place] [address] 3400 Oct, [facility] [place] [facility] [address] [id number] [place] [address] 1899 Oct, [facility] [place] [facility] [address] [id number] [place] [address] 2516 Oct, [facility] [address] [id number] [place] [address]- 5784 Oct, [facility] [place] [facility] [address] [id number] [place] [address]- 9529 Sep, [facility] [place] [facility] [address] [id number] [place] [address]- 4652 Sep, [facility] [place] [facility] [address] [id number] [place] [address]- 6572 Sep, [facility] [place] [facility] [address] [id number] [place] [address]- 4648 Sep, [facility] [address] [id number] [place] [address]- 3143 Sep, [facility] [place] [facility] [address] [id number] [place] [address]- 8548 15 Sep, 2011 [facility] [address] [id number] [place] [address]- 6229 14 Sep, 2011 [facility] [place] [facility] [address] [id number] [place] [address]- 3849 Sep, [facility] [place] [facility] [address] [id number] [place] [address]- 2139 05 Sep, 2011 [facility] [place] [facility] [address] [id number] [place] [address]- 6817 04 Sep, 2011 [facility] [place] [facility] [address] [id number] [place] [address]- 9326 August, [facility] [place] [facility] [address] [id number] [place] [address]- 1320 August, [facility] [address] [id number] [place] [address]- 6025 August, [facility] [place] [facility] [address] [id number] [place] [address]- 1842 August, [facility] [place] [facility] [address] [id number] [place] [address]- 5580 August, [facility] [place] [facility] [address] [id number] [place] [address]- 7505 Jul, [facility] [place] [facility] [address] [id number] [place] [address]- 4361 Jul, [facility] [place] [facility] [address] [id number] [place] [address]- 2605 Jul, [facility] [place] [facility] [address] [id number] [place] [address]- 5827 Jul, [facility] [place] [facility] [address] [id number] [place] [address]- 1377 Jul, [facility] [place] [facility] [address] [id number] [place] [address]- 1548 Jul, [facility] [place] [facility] [address] [id number] [place] [address]- 9839 Jul, [facility] [place] [facility] [address] [id number] [place] [address]- 8263 Jun, [facility] [place] [facility] [address] [id number] [place] [address]- 1404 Jun, [facility] [place] [facility] [address] [id number] [place] [address]- 4218 Jun, [facility] [place] [facility] [address] [id number] [place] [address]- 6560 Jun, [facility] [place] [facility] [address] [id number] [place] [address]- 8762 Jun, [facility] [place] [facility] [address] [id number] [place] [address]- 1749 May, [facility] [place] [facility] [address] [id number] [place] [address]- 4744 May, [facility] [place] [facility] [address] [id number] [place] [address]- 3696 May, [facility] [place] [facility] [address] [id number] [place] [address]- 7906 May, [facility] [place] [facility] [address] [id number] [place] [address], [place] [address]- 2896 May, [facility] [place] [facility] [address] [id number] [place] [address], [place] [address]- [address] May, [facility] [place] [facility] [address] [facility] [id number] [place] [address]- 6761 Apr, [facility] [place] [facility] [id number] [address]- 9169 Mar, [facility] [place] [facility] [address] [id number] [place] [address]- 8489 Feb, [facility] [place] [facility] [id number] [address]- 3852 Feb, [facility] [place] [facility] [address] [facility] [id number] [place] [address]- 4047 Feb, [facility] [place] [facility] [address] [facility] [id number] [place] [address]- 4257 Feb, [facility] [place] [facility] [address] [id number] [place] [address]- 9163 Jan, [facility] [place] [facility] [address] [id number] [place] [address]- 4678 Jan, [facility] [place] [facility] [address] [id number] [place] [address]- 8772 Jan, [facility] [place] [facility] [address] [facility] [id number] [place] [address]- 5294 Jan, [facility] [address] [id number] [place] [address]- 0903 14 Jan, 2011 [facility] [place] [facility] [address] [id number] [place] [address]- 3986 19 Dec, 2010 [facility] [place] [facility] [address] [id number] [place] [address]- 5904 20 Oct, 2010 [facility] [place] [facility] [address] [id number] [place] [address]- 9476 August, [facility] [place] [facility] [address] [id number] [place] [address]- 9773 29 Mar, 2010 [facility] [place] [facility] [address] [id number] [place] [address]- 4010 27 Mar, 2010 [facility] [place] [facility] [address] [id number] [place] [address]- 8380 16 Mar, 2010 [facility] [place] [facility] [address] [id number] [place] [address]- 9752 15 Mar, 2010 [facility] [place] [facility] [address] [id number] [place] [address]- 1024 15 Mar, 2010 [facility] [place] [facility] [address] [facility] [id number] [place] [address]- 5953 08 Mar, 2010 [facility] [place] [facility] [address] [id number] [place] [address]- 3629 03 Mar, 2010 [facility] [place] [facility] [address] [id number] [place] [address]- 0059 24 Feb, 2010 [facility] [place] [facility] [address] [id number] [place] [address]- 6690 24 Feb, 2010 [facility] [place] [facility] [address] [id number] [place] [address]- 5435 15 Feb, 2010 [facility] [place] [facility] [address] [id number] [place] [address] 19 Jan, 2010 [facility] [place] [facility] [address] [id number] [place] [address]- 6091 Jan, [facility] [place] [facility] [address] [id number] [place] [address]- 0899 18 Jan, 2010 [facility] [place] [facility] [address] [id number] [place] [address]- 9181 Nov, [facility] [place] [facility] [address] [facility] [id number] [place] [address]- 0107 14 Sep, 2009 [facility] [place] [facility] [address] [id number] [place] [address]- 0534 August, [facility] [place] [facility] [address] [id number] [place] [address], [place] [address]- 3228 30 Mar, 2009 [facility] [place] [facility] [address] [facility] [id number] [place] [address]- 4565 Mar, [facility] [place] [facility] [address] [facility] [id number] [place] [address]- 4609 17 Feb, 2009 [facility] [place] [facility] [address] [facility] [id number] [place] [address]- 7299 10 Feb, 2009 [facility] [place] [facility] [address] [facility] [id number] [place] [address]- 9621 10 Feb, 2009 [facility] [place] [facility] [address] [facility] [id number] [place] [address]- 3816 10 Feb, 2009 [facility] [place] [facility] [address] [facility] [id number] [place] [address]- 2028 06 Feb, 2009 [facility] [place] [facility] [address] [facility] [id number] [place] [address]- 3920 27 Jan, 2009 [facility] [place] [facility] [address] [facility] [id number] [place] [address]- 2090 26 Jan, 2009 [facility] [place] [facility] [address] [facility] [id number] [place] [address]- 4562 20 Jan, 2009 [facility] [place] [facility] [address] [facility] [id number] [place] [address]- 1907 19 Jan, 2009 [facility] [place] [facility] [address] [facility] [id number] [place] [address]- 4431 10 Nov, 2008 [facility] [address] [facility] [id number] [place] [address]- 9565 Sep, [facility] [address] [id number] [place] [address]- 6773 August, [facility] [address] [facility] [id number] [place] [address]- 4750 Jul, [facility] [address] [facility] [id number] [place] [address]- 1468 May, IMMUNIZATIONS No Known Immunizations SOCIAL HISTORY Never Assessed REASON FOR VISIT requesting a returned call PLAN OF CARE VITAL SIGNS MEDICATIONS [...] Knee Surgery 07/16/17 Hospitalization History [facility]- left hand/wrist swelling 10/09/2017
--- OUTSIDE RECORDS SUMMARY | 2018-01-01 12:45 | XMS REPORT ---
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 Active 49646375 Problem Colon polyp K63.5 Active 87678607 Problem Bilateral low back pain without sciatica M54.5 Active 723918858 Problem Screening breast examination Z12.39 Active 025262029 Problem Postmenopausal Z78.0 Active 64872450 Problem Osteopenia M85.80 Active 891237752 Problem Cigarette nicotine dependence without complication F17.210 Active 14090069 Problem Type 2 diabetes mellitus with diabetic peripheral angiopathy without gangrene E11.51 Active 689202053 Problem Vascular dementia without behavioral disturbance F01.50 Active [id number] Problem Unspecified atherosclerosis of kar[place] arteries of extremities, unspecified extremity I70.209 Active 151335261924679 Problem Arthritis M19.90 Active 5820125 Problem Chronic atrial fibrillation I48.2 Active 113571083 Problem Chronic obstructive pulmonary disease with acute lower respiratory infection J44.0 Active 395393057 Problem Other chronic pancreatitis K86.1 Active 628120436 Problem Stress incontinence of urine N39.3 Active 23793103 Problem Controlled type 2 diabetes mellitus without complication, without long -term current use of insulin E11.9 Active 857707941 Problem Unspecified psychosis F29 Active 49794105 Problem Xeroderma Q80.9 Active 10800735 Problem COPD (chronic obstructive pulmonary disease) J44.9 Active 70088958 Problem Dementia without behavioral disturbance, unspecified dementia type F03.90 Active 88724376 Problem Gastroparesis K31.84 Active 719682892 Problem Type 2 diabetes mellitus with diabetic neuropathy, without long-term current use of insulin E11.40 Active 28769080 Problem Osteoporosis M81.0 Active 61408224 Problem Atherosclerosis of kar[place] artery of both lower extremities with intermittent claudication I70.213 Active 286746927758436 Problem Hyperlipidemia E78.5 Active 28426054 Problem Diabetic polyneuropathy associated with type 2 diabetes mellitus E11.42 Active 30531589 Problem Essential tremor G25.0 Active 63578135 Problem 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.118 Active 3586481842067 Problem Generalized anxiety disorder F41.1 Active 783069290 Problem Gastroesophageal reflux disease, esophagitis presence not specified K21.9 Active 327878303 Problem Coronary artery disease involving karuk coronary artery of karuk heart with other form of angina pectoris I25.118 Active 5590936388876 Problem Postconcussion syndrome F07.81 Active 00635111 Problem Chronic pain syndrome G89.4 Active 073704074 Problem Migraine without aura and without status migrainosus, not intractable G43.009 Active 258019894 Problem Paroxysmal atrial fibrillation I48.0 Active 010417282 Problem Migraine without aura and with status migrainosus, not intractable G43.001 Active 227612096 Problem Cervicalgia M54.2 Active 3323830816876 Problem Acute exacerbation of chronic obstructive pulmonary disease (COPD) J44.1 Active 995585760 Problem Major depressive disorder, recurrent episode, moderate F33.1 Active 268203675 Problem Crohn''s disease without complication, unspecified gastrointestinal tract location K50.90 Active 98379906 Problem Chronic fatigue R53.82 Active 00483518 Problem Bipolar affective disorder, currently depressed, moderate F31.32 Active 173080893 ALLERGIES No Information ENCOUNTERS Encounter Location Date Diagnosis [facility] [address] [id number] [address] Nov, [facility] [id number] [address] Nov, [facility] [address] [id number] [address] Oct, [facility] [address] [id number], [place] [address] Oct, [place] [address] [address] Oct, [facility] [address] [address] Oct, Edema of both legs R60.0 [facility] [address] [address] 9[address] Oct, [facility] [id number] [place] [address] 62427- 9708 Sep, [facility] [address] [address] Sep, [facility] [id number] [place] [address] 66068- 9724 Sep, [facility] [address] [address] Sep, Encounter for well woman exam with routine gynecological exam Z01.419 ; Screening for STDs (sexually transmitted diseases) Z11.3 ; Screening breast examination Z12.31 and Overweight (BMI 25.0-29.9) E66.3 [facility] [address], [place] [address] Sep, [facility] [address], [place] [address] 3[address] Sep, [facility] [address], [place] [address] 5[address] Sep, [facility] [address], [place] [address] 65[address] August, [facility] [address], [place] [address] August, [facility] [address] [address] August, Type 2 diabetes mellitus with diabetic neuropathy, without long-term current use of insulin E11.40 and Sprain of right ankle, unspecified ligament, initial encounter S93.401A [facility] [id number] [place] [address] 78282- 4694 August, [facility] [id number] [place] [address] 83430- 4964 August, [facility] [id number] [place] [address] 26621- 7746 August, [facility] [id number] [place] [address] 47786- 9619 August, Gastroesophageal reflux disease, esophagitis presence not specified K21.9 [facility] [address] 14577- 6439 August, [facility] [id number] [place] [address] 89847- 3196 August, [facility] [id number] [place] [address] 60641- 3699 August, [facility] [id number] [place] [address] 90684- 9757 August, Type 2 diabetes mellitus with diabetic neuropathy, without long-term current use of insulin E11.40 and Elevated liver enzymes R74.8 [facility] [id number] [place] [address] 24634- 4069 Jul, [facility] [id number] [place] [address] 75877- 6095 Jul, Cough R05 [facility] [id number] [place] [address] 31498- 3631 Jul, [facility] [id number] [place] [address] 76211- 5646 Jul, [facility] [id number] [place] [address] 83813- 3082 Jul, Bipolar affective disorder, currently depressed, moderate F31.32 ; Vascular dementia without behavioral disturbance F01.50 and Generalized anxiety disorder F41.1 [place] [id number] [place] [address] 49309- 3637 Jul, [facility] [address] 25886- 8035 Jul, Type 2 diabetes mellitus with diabetic neuropathy, without long-term current use of insulin E11.40 and Elevated liver enzymes R74.8 [facility] [address] 50901- 5674 Jul, [facility] [id number] [place] [address] 61645- 2616 Jul, [facility] [address] 68338- 9939 Jul, [facility] [id number] [place] [address] 94027- 8546 Jul, Post-menopausal Z78.0 [facility] [address] 88081- 2192 Jul, Stress incontinence of urine N39.3 [facility] [id number] [place] [address] 05348- 9958 Jul, [facility] [id number] [place] [address] 16208- 3713 Jul, [facility] [id number] [place] [address] 44277- 8134 Jul, Stress incontinence of urine N39.3 and Cough R05 [facility] [id number] [place] [address] 90933- 6073 Jul, [facility] [id number] [place] [address] 50194- 0208 Jul, [facility] [id number] [place] [address] 42504- 3597 Jul, [facility] [id number] [place] [address] 60153- 9660 Jul, Gastroesophageal reflux disease, esophagitis presence not specified K21.9 [facility] [address] [id number] [address] 85[address] Jun, Diabetic polyneuropathy associated with type 2 diabetes mellitus E11.42 [facility] [id number] [place] [address] 50275- 0347 Jun, Diabetic polyneuropathy associated with type 2 diabetes mellitus E11.42 ; Coronary artery disease involving karuk coronary artery of kar[place] heart with other form of angina pectoris I25.118 and Paroxysmal atrial fibrillation I48.0 [facility] [id number] [place] [address] 80927- 1959 Jun, [facility] [id number] [place] [address] 05420- 1354 Jun, [facility] [id number] [place] [address] 66759- 6809 Jun, Gastroenteritis K52.9 [facility] [id number] [place] [address] 65337- 8758 Jun, Gastroenteritis K52.9 [facility] [id number] [place] [address] 73851- 7020 Jun, [facility] [id number] [place] [address] 01276- 5226 Jun, [facility] [id number] [place] [address] 89350- 4449 Jun, Sprain of right ankle, unspecified ligament, initial encounter S93.401A ; Type 2 diabetes mellitus with diabetic neuropathy, without long-term current use of insulin E11.40 ; Atherosclerosis of kar[place] artery of both lower extremities with intermittent claudication I70.213 ; 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.118 ; Chronic atrial fibrillation I48.2 and Crohn''s disease without complication, unspecified gastrointestinal tract location K50.90 [facility] [address] [address] 17 Jun, 2017 Chronic obstructive pulmonary disease with acute lower respiratory infection J44.0 and Cough R05 [facility] [id number] [place] [address] 23770- 7681 Jun, [facility] [id number] [place] [address] 86809- 2932 Jun, Coughing R05 ; Unspecified atherosclerosis of kar[place] arteries of extremities, unspecified extremity I70.209 ; Type 2 diabetes mellitus with diabetic peripheral angiopathy without gangrene E11.51 ; Crohn''s disease without complication, unspecified gastrointestinal tract location K50.90 ; Other chronic pancreatitis K86.1 and Chronic atrial fibrillation I48.2 [facility] [id number] [place] [address] 24182 -2887 Jun, [facility] [id number] [place] [address] 93615- 1089 Jun, Bipolar affective disorder, currently depressed, moderate F31.32 ; Vascular dementia without behavioral disturbance F01.50 and Generalized anxiety disorder F41.1 [facility] [id number] [place] [address] 22039- 9525 May, Generalized anxiety disorder F41.1 [place] [id number] [place] [address] 58780- 6090 May, [facility] [id number] [place] [address] 51556- 3057 May, [facility] [id number] [place] [address] 26896- 9563 May, Coughing R05 [facility] [id number] [place] [address] 28556- 7309 May, [facility] [id number] [place] [address] 71988- 0754 May, Bipolar affective disorder, currently depressed, moderate F31.32 ; Vascular dementia without behavioral disturbance F01.50 and Generalized anxiety disorder F41.1 [facility] [address] [place] [address]- 5370 Apr, Generalized anxiety disorder F41.1 [facility] [id number] [place] [address] 19200- 9067 Apr, [facility] [id number] [place] [address] 98866- 4483 Apr, Vascular dementia without behavioral disturbance F01.50 ; Generalized anxiety disorder F41.1 and Bipolar affective disorder, currently depressed, moderate F31.32 [place] [id number] [place] [address] 30201- 4941 Apr, Generalized anxiety disorder F41.1 [facility] [id number] [place] [address] 36017 -8226 Apr, Cough R05 and Acute exacerbation of chronic obstructive pulmonary disease (COPD) J44.1 [place] [id number] [place] [address] 47891- 3672 Apr, [facility] [id number] [place] [address] 66182 -9449 Mar, Cough R05 and Cigarette nicotine dependence without complication F17.210 [place] [id number] [place] [address] 63534- 7655 Mar, [place] [id number] [place] [address] 60893- 7585 Feb, Generalized anxiety disorder F41.1 ; Major depressive disorder, recurrent episode, moderate F33.1 ; Vascular dementia without behavioral disturbance F01.50 and Unspecified psychosis F29 [place] [id number] [place] [address] 09477- 3859 Feb, [place] [id number] [place] [address] 90904- 3840 Feb, [place] [id number] [place] [address] 18458- 6725 Feb, Generalized anxiety disorder F41.1 [place] [id number] [place] [address] 55679- 0861 Feb, Generalized anxiety disorder F41.1 [place] [address] 38322- 4460 Feb, Dizziness R42 ; Chronic fatigue R53.82 ; Postconcussion syndrome F07.81 ; Fall, initial encounter W19.XXXA and Disorientation R41.0 [place] [address] 01763- 0162 Feb, Postconcussion syndrome F07.81 ; Injury of head, initial encounter S09.90XA ; Fall, initial encounter W19.XXXA ; Disorientation R41.0 and Acute cystitis with hematuria N30.01 [place] [address] 96587- 0082 Jan, Gastroesophageal reflux disease, esophagitis presence not specified K21.9 ; Post-menopausal Z78.0 and Migraine without aura and without status migrainosus, not intractable G43.009 [place] [address] 28082- 7694 Jan, [place] [address] 24781- 6157 Jan, Generalized anxiety disorder F41.1 ; Major depressive disorder, recurrent episode, moderate F33.1 ; Vascular dementia without behavioral disturbance F01.50 and Unspecified psychosis F29 [place] [address] 02053- 4902 Jan, Pneumonia of left lower lobe due to infectious organism J18.1 [place] [address] 92212- 1018 Jan, Migraine without aura and with status migrainosus, not intractable G43.001 [facility] [id number] [place] [address] 00359 -3048 Jan, Migraine without aura and without status migrainosus, not intractable G43.009 [place] [address], [place] [address]- 7026 Dec, Hematoma T14.8 [facility] [id number] [place] [address] 83333- 5617 Dec, [facility] [id number] [place] [address] 45668 -8124 Nov, Fatigue, unspecified type R53.83 [facility] [id number] [place] [address] 97716- 0887 Nov, Scabies B86 and Coronary artery disease involving karuk coronary artery of karuk heart with other form of angina pectoris I25.118 [facility] [id number] [place] [address] 08079- 6484 Nov, [facility] [id number] [place] [address] 78199- 3890 Nov, [facility] [id number] [place] [address] 25573- 4983 Oct, [facility] [id number] [place] [address] 77322- 3041 Oct, Generalized anxiety disorder F41.1 and Major depressive disorder, recurrent episode, moderate F33.1 [facility] [address] [address]- 3893 Oct, Cramp of both lower extremities R25.2 [facility] [id number] [place] [address] 09602- 8684 Oct, Leg cramps R25.2 [facility] [id number] [place] [address] 77891- 5388 Oct, Chronic pain syndrome G89.4 [facility] [id number] [place] [address] 90418- 1234 Oct, [facility] [id number] [place] [address] 49129- 7595 Oct, [facility] [id number] [place] [address] 10220- 1693 11 Oct, 2016 Routine gynecological examination Z01.419 and Screening for breast cancer Z12.31 [place] [id number] [place] [address] 19335- 6850 28 Sep, 2016 Diarrhea R19.7 [place] [id number] [place] [address] 98964- 0180 26 Sep, 2016 Back pain M54.9 [place] [id number] [place] [address] 01833- 3094 Sep, [place] [id number] [place] [address] 76381- 3747 Sep, [facility] [id number] [place] [address] 58531 -0335 August, Xeroderma Q80.9 [place] [id number] [place] [address] 67739- 6138 August, Dementia without behavioral disturbance, unspecified dementia type F03.90 [place] [id number] [place] [address] 34166- 7248 August, Chronic pain syndrome G89.4 [place] [id number] [place] [address] 82821- 5233 August, [place] [id number] [place] [address] 76799- 9486 August, Hyperlipidemia E78.5 ; Other fatigue R53.83 and Other specified hypotension I95.89 [facility] [id number] [place] [address] 29065 -1970 August, Dysuria R30.0 ; Other fatigue R53.83 and Other specified hypotension I95.89 [place] [id number] [place] [address] 73230- 9010 August, [facility] [id number] [place] [address] 27713- 1791 Jul, Pain in left knee M25.562 and Gastroenteritis K52.9 [place] [address] 43491- 0687 Jul, [place] [address] 23329- 9846 Jul, Diarrhea R19.7 [facility] [address] 96049 -1190 Jul, Spider bite, accidental or unintentional, initial encounter T63.301A [place] [address] 23028 9391 Jul, Primary osteoarthritis of right knee M17.11 and Arthritis M19.90 [place] [address] 36482- 8707 Jul, Generalized anxiety disorder F41.1 and Major depressive disorder, recurrent episode, moderate F33.1 [place] [address] 75890- 4545 07 Jul, 2016 Type 2 diabetes mellitus with diabetic polyneuropathy E11.42 and Temporal headache R51 [place] [address] 09699- 6299 06 Jul, 2016 Back pain M54.9 [place] [address] 22601- 2307 Jul, [place] [address] 55595- 8481 Jul, [place] [address] 92475- 3423 Jun, Nausea R11.0 [facility] [address] 48143 -5424 Jun, Acute suppurative otitis media of both ears without spontaneous rupture of tympanic membranes, recurrence not specified H66.003 and COPD exacerbation J44.1 [place] [id number] [place] [address] 55928- 9531 Jun, Generalized anxiety disorder F41.1 [facility] [address] 72226- 3963 16 Jun, 2016 [facility] [address] 41389 -8528 Jun, [facility] [address] 16058 -1890 Jun, Shortness of breath R06.02 and COPD exacerbation J44.1 [place] [address] 04055- 9800 10 Jun, 2016 Eczema, unspecified type L30.9 [place] [address] 74179- 3662 Jun, [place] [address] 91789- 5001 May, [place] [id number] [place] [address] 66562- 3509 May, Muscle cramping R25.2 [place] [id number] [place] [address] 05468- 1394 May, [place] [id number] [place] [address] 31048- 1293 Apr, Diarrhea R19.7 [place] [id number] [place] [address] 41976- 0578 Apr, [place] [id number] [place] [address] 36960- 7426 Apr, Chronic pain syndrome G89.4 [place] [id number] [place] [address] 96919- 7042 Apr, Cramp of both lower extremities R25.2 and Vascular dementia without behavioral disturbance F01.50 [place] [address] 10284- 6566 Apr, Type 2 diabetes mellitus with diabetic polyneuropathy E11.42 and Cigarette nicotine dependence without complication F17.210 [place] [address] 08738- 2233 Mar, Generalized anxiety disorder F41.1 [place] [address] 22468- 4365 Feb, Generalized anxiety disorder F41.1 and Major depressive disorder, recurrent episode, moderate F33.1 [place] [address] 21822- 0775 Feb, [facility] [address] 99004 -9014 Feb, Dysuria R30.0 and Acute cystitis with hematuria N30.01 [place] [address] 47431- 2622 Jan, [place] [address] 08727- 9383 Jan, [place] [address] 41604- 3333 Jan, [place] [address] 69418- 4299 Jan, [facility] [address] 41541 -3988 Jan, Wasp sting, accidental or unintentional, initial encounter T63.461A [place] [address] 89750- 6451 Jan, Encounter for immunization Z23 [place] [address] 41679- 1554 Jan, [facility] [address] [address] [address]- [address] Jan, [place] [address] [place] [address] 28 Dec, 2015 Generalized anxiety disorder F41.1 and Major depressive disorder, recurrent episode, moderate F33.1 [facility] [id number] [place] [address] 74853- 7389 21 Dec, 2015 Routine gynecological examination Z01.419 ; Postmenopausal Z78.0 ; Screening breast examination Z12.39 ; Osteopenia M85.80 and Breast cancer screening Z12.39 [facility] [id number] [place] [address] 69855- 2840 20 Dec, 2015 [facility] [id number] [place] [address] 41057- 2092 19 Dec, 2015 [facility] [id number] [place] [address] 62257- 9417 16 Dec, 2015 [facility] [id number] [place] [address] 42869- 5187 16 Dec, 2015 [facility] [id number] [place] [address] 29134- 3044 14 Dec, 2015 [facility] [id number] [place] [address] 92061- 0007 06 Dec, 2015 [facility] [id number] [place] [address] 32598- 0419 30 Nov, 2015 [facility] [id number], [place] [address] Nov, Cough R05 ; Other viral agents as the cause of diseases classified elsewhere B97.89 and Acute upper respiratory infection, unspecified J06.9 [facility] [address], [place] [address] 6[address] Nov, [facility] [id number] [place] [address] 80621- 5052 Nov, [facility] [id number], [place] [address]- 0484 Nov, [facility] [address], [place] [address] 0734 Nov, [facility] [id number] [place] [address] 58380- 2982 Nov, [facility] [id number] [place] [address] 94030- 1780 Oct, [facility] [id number] [place] [address] 44813- 6819 Oct, [facility] [id number] [place] [address] 61215- 0623 Oct, [facility] [id number] [place] [address] 11387- 2660 Oct, Chronic pain syndrome G89.4 [facility] [id number] [place] [address] 36826- 3342 Sep, Generalized anxiety disorder F41.1 and Major depressive disorder, recurrent episode, moderate F33.1 [facility] [id number] [place] [address] 94932- 8221 Sep, [facility] [id number] [place] [address] 07776- 6141 Sep, [facility] [id number] [place] [address] 67100- 9442 Sep, Generalized anxiety disorder F41.1 [facility] [id number] [place] [address] 87388- 4580 Sep, Cramp of both lower extremities R25.2 and Cervicalgia M54.2 [facility] [id number] [place] [address] 23773- 0644 Sep, Generalized anxiety disorder F41.1 [facility] [id number] [place] [address] 95654- 5685 Sep, [facility] [id number] [place] [address] 32610 -0129 August, Rash R21 ; Itching L29.9 and Allergic response, subsequent encounter T78.40XD [place] [id number] [place] [address] 82264- 1099 August, Primary insomnia F51.01 [facility] [id number] [place] [address] 57626 -0274 August, Rash R21 ; Itching L29.9 and Allergic response, initial encounter T78.40XA [facility] [id number] [place] [address] 44266- 3473 August, [place] [address] 42313- 6963 August, Cramp of both lower extremities R25.2 [place] [id number] [place] [address] 34513- 3392 August, Back pain M54.9 [place] [id number] [place] [address] 23100- 1163 August, [place] [id number] [place] [address] 58998- 6974 August, [facility] [id number] [place] [address] 81749 -1389 August, Cramp of both lower extremities R25.2 [place] [id number] [place] [address] 11325- 5463 August, [place] [id number] [place] [address] 33343- 9564 August, Syncope R55 ; Paroxysmal atrial fibrillation I48.0 ; Dementia without behavioral disturbance, unspecified dementia type F03.90 and Chronic pain syndrome G89.4 [place] [id number] [place] [address] 43270- 1796 August, Type 2 diabetes mellitus with diabetic polyneuropathy E11.42 and Syncope R55 [facility] [id number] [place] [address] 52936- 6556 Jul, [facility] [address] [facility] [id number] [address]- 2766 Jul, [facility] [address] [facility] [id number], [place] [address]- 8366 Jul, [facility] [address] [facility] [id number], [place] [address]- 9235 Jul, [facility] [address] [id number], [place] [address]- 5128 Jul, [facility] [address] [facility] [id number], [place] [address]- 3304 Jul, UTI (urinary tract infection) N39.0 [facility] [address] [facility] [id number], [place] [address]- 7879 Jul, [facility] [address], [place] [address]- 6329 Jul, Major depressive disorder, recurrent episode, moderate F33.1 and Generalized anxiety disorder F41.1 [facility] [address] [facility] [id number], [place] [address]- 2001 Jul, Generalized anxiety disorder F41.1 [facility] [id number], [place] [address]- 4413 14 Jul, 2015 Diarrhea R19.7 [facility] [address], [place] [address]- 3295 Jul, [facility] [address] [facility] [id number], [place] [address]- 2308 Jun, [facility] [address] [facility] [id number], [place] [address]- 7854 Jun, Eczema L30.9 [facility] [address] [facility] [id number], [place] [address]- 7964 Jun, [facility] [address], [place] [address]- 4749 Jun, COPD (chronic obstructive pulmonary disease) J44.9 [facility] [address], [place] [address]- 8740 Jun, [facility] [address], [place] [address]- 8562 Jun, Major depressive disorder, recurrent episode, moderate F33.1 and Generalized anxiety disorder F41.1 [facility] [address], [place] [address]- 3710 May, [facility] [address], [place] [address]- 5516 May, UTI (urinary tract infection) N39.0 [facility] [address], [place] [address]- 1094 May, [facility] [address], [place] [address]- 7156 May, [facility] [address], [place] [address]- 5750 May, [facility] [address], [place] [address]- 6749 May, [facility] [address], [place] [address]- 0393 Apr, Major depressive disorder, recurrent episode, moderate F33.1 and Generalized anxiety disorder F41.1 [facility] [address], [place] [address]- 7102 Apr, COPD (chronic obstructive pulmonary disease) J44.9 [facility] [address], [place] [address]- 4951 Apr, [facility] [address], [place] [address]- 2605 Apr, Atrial flutter I48.92 [facility] [address], [place] [address]- 8676 Apr, [facility] [address], [place] [address]- 3242 Apr, [facility] [id number] [place] [address] 88718- 9141 Mar, [facility] [id number] [place] [address] 62149- 3017 Mar, [facility] [id number] [place] [address] 48574- 7820 Mar, [facility] [id number] [place] [address] 44069- 1857 Mar, Hyperlipidemia E78.5 ; Type 2 diabetes mellitus with diabetic polyneuropathy E11.42 ; Major depressive disorder, recurrent episode, moderate F33.1 and Chronic pain syndrome G89.4 [facility] [id number] [place] [address] 32851- 1975 Mar, [facility] [id number] [place] [address] 24454- 3463 Mar, [facility] [id number] [place] [address] 41441- 2237 Mar, [facility] [id number] [place] [address] 43315- 2719 Mar, [facility] [id number] [place] [address] 95823- 4104 Feb, COPD (chronic obstructive pulmonary disease) J44.9 and Back pain M54.9 [facility] [address], [place] [address]- 2721 Feb, [facility] [id number] [place] [address] 11030- 7935 Feb, [facility] [id number] [place] [address] 24142- 3664 Feb, [facility] [id number] [place] [address] 64357- 7665 Feb, [facility] [id number] [place] [address] 97630- 6985 Feb, [facility] [id number] [place] [address] 59536- 7137 Feb, [facility] [id number] [place] [address] 08790- 8232 Feb, [facility] [id number] [place] [address] 26627- 9199 Feb, [facility] [id number] [place] [address] 31199- 0740 Feb, Diabetes E11.9 ; Back pain M54.9 and COPD (chronic obstructive pulmonary disease) J44.9 [facility] [id number] [place] [address] 64893- 3620 Jan, [facility] [id number] [place] [address] 79945- 0799 Jan, Major depression, recurrent F33.9 and Generalized anxiety disorder F41.1 [facility] [id number] [place] [address] 93319- 1596 Jan, Chronic pain G89.29 [facility] [id number] [place] [address] 66001- 5497 Jan, [facility] [id number] [place] [address] 81705- 8326 Jan, [facility] [id number] [place] [address] 94404- 5662 Jan, [facility] [id number] [place] [address] 80970- 7895 Jan, [facility] [id number] [place] [address] 54085- 1627 Jan, Nicotine dependence F17.200 [facility] [id number] [place] [address] 16075- 9975 Jan, Nicotine dependence F17.200 and Back pain M54.9 [facility] [id number] [place] [address] 23313- 9670 Jan, [facility] [id number] [place] [address] 05643- 8107 28 Dec, 2014 [facility] [id number] [place] [address] 19863- 7878 25 Dec, 2014 Anxiety, generalized 300.02 and Major depression, recurrent 296.30 [facility] [id number] [place] [address] 30744- 9647 24 Dec, 2014 [facility] [id number] [place] [address] 76951- 3776 21 Dec, 2014 [facility] [id number] [place] [address] 79305- 8054 17 Dec, 2014 [facility] [id number] [place] [address] 54396- 6642 15 Dec, 2014 [facility] [id number] [place] [address] 01789- 2735 14 Dec, 2014 [facility] [id number] [place] [address] 20989- 2487 11 Dec, 2014 [facility] [address], [place] [address]- 2947 10 Dec, 2014 [facility] [id number] [place] [address] 41846- 5192 08 Dec, 2014 Skin tear 879.8 [facility] [id number] [place] [address] 13776- 8678 08 Dec, 2014 Routine gynecological examination V72.31 ; Breast cancer screening V76.10 and Family history of breast cancer in first degree relative V16.3 [facility] [id number] [place] [address] 94380- 5373 03 Dec, 2014 [facility] [id number] [place] [address] 29093- 4501 Dec, [facility] [id number] [place] [address] 61135- 4011 Nov, [facility] [id number] [place] [address] 53323- 8387 Nov, [facility] [id number] [place] [address] 14059- 5282 Nov, Poor balance 781.99 and Vascular dementia, uncomplicated 290.40 [facility] [id number] [place] [address] 85403- 7440 Nov, [facility] [id number] [place] [address] 67308- 5981 Nov, Major depression, recurrent 296.30 and Anxiety, generalized 300.02 [facility] [id number] [place] [address] 48440- 2112 Nov, [facility] [id number] [place] [address] 17140- 3552 Nov, [facility] [id number] [place] [address] 30246- 9886 Nov, [facility] [id number] [place] [address] 28113- 0129 Nov, [facility] [id number] [place] [address] 38743- 6306 Nov, Vascular dementia, uncomplicated 290.40 and Lumbago 724.2 [facility] [id number] [place] [address] 33960- 2577 Nov, [facility] [id number] [place] [address] 90805- 4760 Nov, [facility] [id number] [place] [address] 66852- 4370 Nov, [facility] [id number] [place] [address] 94512- 1389 Oct, [facility] [address], [place] [address]- 6675 Oct, [facility] [id number] [place] [address] 98744- 4572 Oct, [facility] [id number] [place] [address] 60299- 9878 Oct, COPD (chronic obstructive pulmonary disease) 496 and Hyperlipidemia 272.4 [facility] [id number] [place] [address] 76997- 6771 Oct, Major depression, recurrent 296.30 and Anxiety, generalized 300.02 [facility] [id number] [place] [address] 48634- 1185 Oct, [facility] [id number] [place] [address] 78249- 0056 Oct, [facility] [id number] [place] [address] 07289- 1274 Oct, [facility] [id number] [place] [address] 57184- 3868 Sep, Lumbago 724.2 and Anxiety state, unspecified 300.00 [facility] [address], [place] [address]- 7057 Sep, [facility] [id number] [place] [address] 96879- 5441 Sep, [facility] [address], [place] [address]- 4975 August, [facility] [id number] [place] [address] 78397- 6406 August, Major depression, recurrent 296.30 ; Anxiety, generalized 300.02 and No condition on Leon II V71.09 [facility] [address], [place] [address]- 2610 August, [facility] [place] [facility] [address] [id number] [place] [address]- 7426 August, [facility] [place] [facility] [address] [id number] [place] [address]- 9043 29 Jul, 2014 [facility] [place] [facility] [address] [id number] [place] [address]- 1676 14 Jul, 2014 [facility] [place] [facility] [address] [id number] [place] [address]- 4346 Jul, [facility] [place] [facility] [address] [id number] [place] [address]- 1393 30 Jun, 2014 [facility] [place] [facility] [address] [id number] [place] [address]- 0697 30 Jun, 2014 [facility] [place] [facility] [address] [id number] [place] [address]- 6537 27 Jun, 2014 [facility] [place] [facility] [address] [id number] [place] [address]- 7965 27 Jun, 2014 [facility] [place] [facility] [address] [id number] [place] [address]- 6203 26 Jun, 2014 [facility] [place] [facility] [address] [id number] [place] [address]- 2457 23 Jun, 2014 [facility] [place] [facility] [address] [id number] [place] [address]- 9385 23 Jun, 2014 [facility] [place] [facility] [address] [id number] [place] [address]- 1557 17 Jun, 2014 [facility] [place] [facility] [address] [id number] [place] [address]- 1855 13 Jun, 2014 [facility] [place] [facility] [address] [id number] [place] [address]- 9596 13 Jun, 2014 [facility] [place] [facility] [address] [id number] [place] [address]- 2546 10 Jun, 2014 [facility] [place] [facility] [address] [id number] [place] [address]- 0784 10 Jun, 2014 [facility] [place] [facility] [address] [id number] [place] [address]- 7598 Jun, [facility] [place] [facility] [address] [id number] [place] [address]- 9059 Jun, 2014 [facility] [place] [facility] [address] [id number] [place] [address]- 9317 Jun, [facility] [place] [facility] [address] [id number] [place] [address]- 5003 Jun, [facility] [place] [facility] [address] [id number] [place] [address]- 2529 May, 2014 [facility] [place] [facility] [address] [id number] [place] [address]- 9231 May, 2014 [facility] [place] [facility] [address] [facility] [id number] [place] [address]- 5460 May, 2014 [facility] [place] [facility] [address] [id number] [place] [address]- 9904 May, 2014 [facility] [place] [facility] [address] [facility] [id number] [place] [address]- 1310 May, 2014 [facility] [place] [facility] [address] [facility] [id number] [place] [address]- 9298 May, 2014 [facility] [place] [facility] [address] [facility] [id number] [place] [address]- 2092 May, 2014 [facility] [place] [facility] [address] [facility] [id number] [place] [address]- 5549 12 May, 2014 [facility] [place] [facility] [address] [id number] [place] [address]- 3471 May, 2014 [facility] [place] [facility] [address] [id number] [place] [address]- 9370 May, 2014 [facility] [place] [facility] [address] [id number] [place] [address]- 8925 06 May2014 [facility] [place] [facility] [address] [id number] [place] [address]- 9783 May, [facility] [place] [facility] [address] [id number] [place] [address]- 2469 May, [facility] [place] [facility] [address] [id number] [place] [address]- 6873 May, [facility] [place] [facility] [address] [id number] [place] [address]- 9276 Apr, [facility] [place] [facility] [address] [id number] [place] [address]- 3293 Apr, [facility] [place] [facility] [address] [id number] [place] [address]- 2852 Apr, [facility] [place] [facility] [address] [id number] [place] [address] Apr, [facility] [place] [facility] [address] [id number] [place] [address] Apr, [facility] [place] [facility] [address] [id number] [place] [address] Apr, [facility] [place] [facility] [address] [id number] [place] [address] Apr, [facility] [place] [facility] [address] [id number] [place] [address] Apr, [facility] [place] [facility] [address] [id number], [place] [address] Apr, [facility] [place] [facility] [address] [id number] [place] [address] Apr, [facility] [place] [facility] [address] [id number] [place] [address] Apr, [facility] [place] [facility] [address] [id number] [place] [address] Apr, [facility] [place] [facility] [address] [id number], [place] [address] 31 Mar, 2014 [facility] [place] [facility] [address] [id number] [place] [address] 31 Mar, 2014 [facility] [place] [facility] [address] [id number] [place] [address] 30 Mar, 2014 [facility] [place] [facility] [address] [id number] [place] [address] 30 Mar, 2014 [facility] [place] [facility] [address] [id number] [place] [address] 29 Mar, 2014 [facility] [place] [facility] [address] [id number] [place] [address] 29 Mar, 2014 [facility] [place] [facility] [address] [id number] [place] [address] Mar, [facility] [place] [facility] [address] [id number] [place] [address] Mar, [facility] [place] [facility] [address] [id number] [place] [address] 15 Mar, 2014 [facility] [place] [facility] [address] [id number] [place] [address] 15 Mar, 2014 [facility] [place] [facility] [address] [id number] [place] [address] 15 Mar, 2014 [facility] [place] [facility] [address] [id number] [place] [address] 15 Mar, 2014 [facility] [place] [facility] [address] [id number] [place] [address] 15 Mar, 2014 [facility] [place] [facility] [address] [id number] [place] [address]- [address] 15 Mar, 2014 [facility] [place] [facility] [address] [id number] [place] [address] 08 Mar, 2014 [facility] [place] [facility] [address] [id number] [place] [address] 08 Mar, 2014 [facility] [place] [facility] [address] [id number] [place] [address] Mar, [facility] [place] [facility] [address] [id number] [place] [address] Mar, [facility] [place] [facility] [address] [id number] [place] [address] Mar, [facility] [place] [facility] [address] [id number] [place] [address] Mar, [facility] [place] [facility] [address] [id number] [place] [address] Feb, [facility] [place] [facility] [address] [id number] [place] [address] Feb, [facility] [place] [facility] [address] [id number] [place] [address] Feb, [facility] [place] [facility] [address] [id number] [place] [address] Feb, [facility] [place] [facility] [address] [id number] [place] [address] Feb, [facility] [place] [facility] [address] [id number] [place] [address] Feb, [facility] [place] [facility] [address] [address] [id number] [place] [address] Feb, [facility] [place] [facility] [address] [id number] [place] [address] 4229 Feb, [facility] [place] [facility] [address] [id number] [place] [address] 1787 Feb, [facility] [place] [facility] [address] [id number] [place] [address] 5072 Feb, [facility] [place] [facility] [address] [id number] [place] [address]- 6858 Feb, [facility] [place] [facility] [address] [id number] [place] [address]- 7757 Feb, [facility] [place] [facility] [address] [id number] [place] [address]- 5912 Feb, [facility] [place] [facility] [address] [id number] [place] [address]- 0329 Feb, [facility] [place] [facility] [address] [id number] [place] [address] 5197 Feb, [facility] [place] [facility] [address] [id number] [place] [address] 2317 Feb, [facility] [place] [facility] [address] [id number] [place] [address] Feb, [facility] [place] [facility] [address] [id number] [place] [address] 3711 Jan, [facility] [place] [facility] [address] [id number] [place] [address]- 4848 Jan, [facility] [place] [facility] [address] [id number] [place] [address]- 3883 Jan, [facility] [place] [facility] [address] [id number] [place] [address]- 3482 Jan, [facility] [place] [facility] [address] [id number] [place] [address]- 7517 Jan, [facility] [place] [facility] [address] [id number], [place] [address] 9[address] Jan, [facility] [place] [facility] [address] [id number], [place] [address]- 1287 Jan, [facility] [place] [facility] [address] [id number] [place] [address]- 3288 Jan, [facility] [place] [facility] [address] [id number] [place] [address]- 1388 Jan, [facility] [place] [facility] [address] [id number] [place] [address] Jan, [facility] [place] [facility] [address] [id number] [place] [address]- 2572 Jan, [facility] [place] [facility] [address] [id number] [place] [address]- 0889 Dec, [facility] [place] [facility] [address] [id number] [place] [address]- 3654 Dec, [facility] [place] [facility] [address] [id number] [place] [address]- 7865 Nov, [facility] [place] [facility] [address] [id number] [place] [address]- 2444 Nov, [facility] [place] [facility] [address] [id number] [place] [address]- 5017 Nov, [facility] [place] [facility] [address] [id number] [place] [address]- 5025 Nov, [facility] [place] [facility] [address] [id number] [place] [address]- 8217 Nov, [facility] [place] [facility] [address] [id number] [place] [address]- 3962 Nov, [facility] [place] [facility] [address] [id number] [place] [address]- 3414 Nov, [facility] [place] [facility] [address] [id number] [place] [address]- 1365 Oct, [facility] [place] [facility] [address] [id number] [place] [address]- 3535 Oct, [facility] [place] [facility] [address] [id number] [place] [address]- 1154 Oct, [facility] [place] [facility] [address] [id number] [place] [address]- 8628 Oct, [facility] [place] [facility] [address] [id number] [place] [address]- 4316 Sep, [facility] [place] [facility] [address] [id number] [place] [address]- 3859 Sep, [facility] [place] [facility] [address] [id number] [place] [address]- 4602 Sep, [facility] [place] [facility] [address] [id number] [place] [address]- 0835 Sep, [facility] [place] [facility] [address] [id number] [place] [address]- 5981 Sep, [facility] [place] [facility] [address] [id number] [place] [address] 7141 Sep, [facility] [place] [facility] [address] [id number] [place] [address]- 0613 Sep, [facility] [place] [facility] [address] [id number] [place] [address]- 5923 Sep, [facility] [place] [facility] [address] [id number] [place] [address]- 8279 Sep, [facility] [place] [facility] [address] [id number] [place] [address]- 1236 Sep, [facility] [place] [facility] [address] [id number] [place] [address]- 6483 Sep, [facility] [place] [facility] [address] [id number] [place] [address]- 9873 Sep, [facility] [place] [facility] [address] [id number] [place] [address]- 1516 Sep, [facility] [place] [facility] [address] [id number] [place] [address]- 8199 Sep, [facility] [place] [facility] [address] [id number] [place] [address]- 8243 August, [facility] [place] [facility] [address] [id number] [place] [address]- 8847 August, [facility] [place] [facility] [address] [id number] [place] [address]- 6119 August, [facility] [place] [facility] [address] [id number] [place] [address]- 7161 August, [facility] [address] [id number] [place] [address]- 0598 August, [facility] [place] [facility] [address] [id number] [place] [address]- 2750 August, [facility] [place] [facility] [address] [id number] [place] [address]- 5889 August, [facility] [place] [facility] [address] [id number] [place] [address]- 0229 August, [facility] [place] [facility] [address] [id number] [place] [address]- 7327 August, [facility] [place] [facility] [address] [id number] [place] [address]- 4990 August, [facility] [place] [facility] [address] [id number] [place] [address]- 3932 August, [facility] [place] [facility] [address] [id number] [place] [address]- 6198 August, [facility] [place] [facility] [address] [id number] [place] [address]- 3941 August, [facility] [place] [facility] [address] [id number] [place] [address]- 4552 August, [facility] [place] [facility] [address] [id number] [place] [address]- 9517 August, [facility] [place] [facility] [address] [id number] [place] [address]- 5757 August, [facility] [place] [facility] [address] [id number] [place] [address]- 2928 August, [facility] [place] [facility] [address] [id number] [place] [address]- 9693 August, [facility] [place] [facility] [address] [id number] [place] [address]- 7163 August, [facility] [place] [facility] [address] [id number] [place] [address]- 2621 Jul, [facility] [place] [facility] [address] [id number] [place] [address]- 0056 Jul, [facility] [place] [facility] [address] [id number] [place] [address]- 1876 Jul, [facility] [place] [facility] [address] [id number] [place] [address]- 4256 Jul, [facility] [place] [facility] [address] [id number] [place] [address]- 0726 Jun, [facility] [place] [facility] [address] [id number] [place] [address]- 0264 Jun, [facility] [place] [facility] [address] [id number] [place] [address]- 5404 Jun, [facility] [place] [facility] [address] [id number] [place] [address]- 7056 Jun, [facility] [place] [facility] [address] [id number] [place] [address]- 4718 Jun, [facility] [place] [facility] [address] [id number] [place] [address]- 6181 Jun, [facility] [place] [facility] [address] [id number] [place] [address]- 6740 Jun, [facility] [place] [facility] [address] [id number] [place] [address]- 1842 Jun, [facility] [place] [facility] [address] [id number] [place] [address]- 7600 Jun, [facility] [place] [facility] [address] [id number] [place] [address]- 8121 Jun, [facility] [place] [facility] [address] [id number] [place] [address]- 9973 May, [facility] [place] [facility] [address] [id number] [place] [address]- 4067 May, [facility] [place] [facility] [address] [id number] [place] [address]- 2594 May, [facility] [place] [facility] [address] [id number] [place] [address]- 9126 May, [facility] [place] [facility] [address] [id number] [place] [address]- 3040 May, [facility] [place] [facility] [address] [id number] [place] [address]- 2496 May, [facility] [place] [facility] [address] [id number] [place] [address]- 9490 20 May, 2013 [facility] [place] [facility] [address] [id number] [place] [address]- 6571 May, [facility] [place] [facility] [address] [id number] [place] [address]- 3602 May, [facility] [place] [facility] [address] [id number] [place] [address]- 3021 18 May, 2013 [facility] [place] [facility] [address] [id number] [place] [address]- 1625 18 May, 2013 [facility] [place] [facility] [address] [id number] [place] [address]- 8190 17 May, 2013 [facility] [place] [facility] [address] [id number] [place] [address]- 2989 May, 2013 [facility] [place] [facility] [address] [id number] [place] [address]- 2479 May, [facility] [place] [facility] [address] [id number] [place] [address]- 2029 10 May, 2013 [facility] [place] [facility] [address] [id number] [place] [address]- 0264 07 May, 2013 [facility] [place] [facility] [address] [id number] [place] [address]- 6216 07 May, 2013 [facility] [place] [facility] [address] [id number] [place] [address]- 2881 Apr, [facility] [place] [facility] [address] [id number] [place] [address]- 9712 Apr, [facility] [place] [facility] [address] [id number] [place] [address]- 8676 Apr, [facility] [place] [facility] [address] [id number] [place] [address]- 7999 Apr, [facility] [place] [facility] [address] [id number] [place] [address]- 2891 Apr, [facility] [place] [facility] [address] [id number] [place] [address]- 5409 Apr, [facility] [place] [facility] [address] [id number] [place] [address]- 2643 Apr, [facility] [place] [facility] [address] [id number] [place] [address]- 7687 Mar, [facility] [place] [facility] [address] [id number] [place] [address]- 0835 Mar, [facility] [place] [facility] [address] [id number] [place] [address]- 8678 Mar, [facility] [place] [facility] [address] [id number] [place] [address]- 7935 Mar, [facility] [place] [facility] [address] [id number] [place] [address]- 0165 Mar, [facility] [place] [facility] [address] [id number] [place] [address]- 7918 Mar, [facility] [place] [facility] [address] [id number] [place] [address]- 1236 Mar, [facility] [place] [facility] [address] [id number] [place] [address]- 4713 Mar, [facility] [place] [facility] [address] [id number] [place] [address]- 7287 04 Mar, 2013 [facility] [place] [facility] [address] [id number] [place] [address]- 3288 Mar, [facility] [place] [facility] [address] [id number] [place] [address]- 7703 Mar, [facility] [place] [facility] [address] [id number] [place] [address]- 7463 Feb, [facility] [place] [facility] [address] [id number] [place] [address]- 5301 Feb, [facility] [place] [facility] [address] [id number] [place] [address]- 2126 Feb, [facility] [place] [facility] [address] [id number], [place] [address]- 5431 Feb, [facility] [place] [facility] [address] [id number] [place] [address]- 9711 Feb, [facility] [place] [facility] [address] [id number], [place] [address]- 0951 19 Feb, 2013 [facility] [place] [facility] [address] [id number], [place] [address]- 0954 15 Feb, 2013 [facility] [place] [facility] [address] [id number], [place] [address]- 2813 14 Feb, 2013 [facility] [place] [facility] [address] [id number], [place] [address]- 2170 14 Feb, 2013 [facility] [place] [facility] [address] [id number], [place] [address]- 0171 13 Feb, 2013 [facility] [place] [facility] [address] [id number], [place] [address]- 5414 13 Feb, 2013 [facility] [place] [facility] [address] [id number], [place] [address]- 3458 12 Feb, 2013 [facility] [place] [facility] [address] [id number], [place] [address]- 3171 12 Feb, 2013 [facility] [place] [facility] [address] [id number] [place] [address]- 2600 Feb, [facility] [address] [id number] [place] [address]- 6190 Feb, [facility] [place] [facility] [address] [id number] [place] [address]- 0495 Feb, [facility] [place] [facility] [address] [id number] [place] [address]- 0724 Jan, [facility] [place] [facility] [address] [id number] [place] [address]- 0594 Jan, [facility] [place] [facility] [address] [id number] [place] [address]- 9421 Jan, [facility] [place] [facility] [address] [id number] [place] [address]- 4852 Jan, [facility] [place] [facility] [address] [id number] [place] [address]- 3033 Jan, [facility] [place] [facility] [address] [id number] [place] [address]- 1936 Jan, [facility] [place] [facility] [address] [id number] [place] [address]- 4881 Jan, [facility] [place] [facility] [address] [id number] [place] [address]- 1585 Jan, [facility] [place] [facility] [address] [id number] [place] [address]- 8701 10 Jan, 2013 [facility] [place] [facility] [address] [id number] [place] [address]- 3775 27 Dec, 2012 [facility] [place] [facility] [address] [id number] [place] [address]- 9628 20 Dec, 2012 [facility] [place] [facility] [address] [id number] [place] [address]- 2549 19 Dec, 2012 [facility] [place] [facility] [address] [id number] [place] [address]- 7024 10 Dec, 2012 [facility] [place] [facility] [address] [id number] [place] [address]- 8738 04 Dec, 2012 [facility] [place] [facility] [address] [id number] [place] [address]- 3251 Dec, [facility] [place] [facility] [address] [id number] [place] [address]- 3762 Nov, [facility] [place] [facility] [address] [id number] [place] [address]- 6301 Nov, [facility] [place] [facility] [address] [id number] [place] [address]- 2339 Nov, [facility] [place] [facility] [address] [id number] [place] [address]- 5501 Nov, [facility] [place] [facility] [address] [id number] [place] [address]- 1268 Nov, [facility] [place] [facility] [address] [id number] [place] [address]- 7804 Nov, [facility] [place] [facility] [address] [id number] [place] [address]- 0540 Nov, [facility] [place] [facility] [address] [id number] [place] [address]- 1754 Nov, [facility] [place] [facility] [address] [id number] [place] [address]- 7233 Nov, [facility] [place] [facility] [address] [id number] [place] [address]- 1386 Nov, [facility] [place] [facility] [address] [id number] [place] [address]- 3513 Oct, [facility] [place] [facility] [address] [id number] [place] [address]- 6738 Oct, [facility] [place] [facility] [address] [id number] [place] [address]- 6504 Oct, [facility] [place] [facility] [address] [id number] [place] [address]- 5612 Oct, [facility] [address] [id number] [place] [address]- 4374 Oct, [facility] [place] [facility] [address] [id number] [place] [address]- 0439 Oct, [facility] [place] [facility] [address] [id number] [place] [address]- 7638 Oct, [facility] [place] [facility] [address] [id number] [place] [address]- 0331 Oct, [facility] [place] [facility] [address] [id number] [place] [address]- 9773 Sep, [facility] [place] [facility] [address] [id number] [place] [address]- 5246 Sep, [facility] [place] [facility] [address] [id number] [place] [address]- 2996 Sep, [facility] [place] [facility] [address] [id number] [place] [address]- 8418 Sep, [facility] [place] [facility] [address] [id number] [place] [address]- 4483 Sep, [facility] [place] [facility] [address] [id number] [place] [address]- 4272 Sep, [facility] [place] [facility] [address] [id number] [place] [address]- 1431 Sep, [facility] [place] [facility] [address] [id number] [place] [address]- 7412 Sep, [facility] [place] [facility] [address] [id number] [place] [address]- 8872 August, [facility] [place] [facility] [address] [id number] [place] [address]- 4329 August, [facility] [place] [facility] [address] [id number] [place] [address]- 6192 August, [facility] [place] [facility] [address] [id number] [place] [address]- 9176 August, [facility] [address] [id number] [place] [address]- 4009 August, [facility] [address] [id number] [place] [address]- 0006 Jul, [facility] [address] [id number] [place] [address]- 8169 Jul, [facility] [address] [id number] [place] [address]- 8202 Jul, [facility] [address] [id number] [place] [address]- 0167 Jul, [facility] [address] [id number] [place] [address]- 4807 Jul, [facility] [address] [id number] [place] [address]- 6640 Jun, [facility] [address] [id number] [place] [address]- 6253 18 Jun, 2012 [facility] [address] [id number] [place] [address]- 9007 15 Jun, 2012 [facility] [address] [id number] [place] [address]- 9312 14 Jun, 2012 [facility] [address] [id number] [place] [address]- 2651 Jun, [facility] [address] [id number] [place] [address]- 9796 Jun, [facility] [address] [id number] [place] [address]- 9868 Jun, [facility] [address] [id number] [place] [address] Jun, [facility] [address] [id number] [place] [address] Jun, [facility] [address] [id number] [place] [address] May, [facility] [address] [id number] [place] [address] May, [facility] [address] [id number] [place] [address] May, [facility] [address] [id number] [place] [address] May, [facility] [address] [id number] [place] [address] Apr, [facility] [address] [id number] [place] [address] Apr, [facility] [address] [id number] [place] [address] Apr, [facility] [address] [id number] [place] [address] Apr, [facility] [address] [id number] [place] [address] Apr, [facility] [address] [id number] [place] [address] Apr, [facility] [address] [id number], [place] [address] Apr, [facility] [address] [id number], [place] [address] Mar, [facility] [address] [place] [id number] Mar, [facility] [address] [id number], [place] [address] Mar, [facility] [address] [id number], [place] [address] Mar, [facility] [address] [id number], [place] [address] Mar, [facility] [place] [facility] [address] [id number] [place] [address] Mar, [facility] [place] [facility] [address] [id number] [place] [address] Mar, [facility] [place] [facility] [address] [id number] [place] [address] Mar, [facility] [place] [facility] [address] [id number] [place] [address] Mar, [facility] [place] [facility] [address] [id number] [place] [address] 4067 Mar, [facility] [place] [facility] [address] [id number] [place] [address] Mar, [facility] [place] [facility] [address] [id number] [place] [address] Mar, [facility] [place] [facility] [address] [id number] [place] [address] Mar, [facility] [place] [facility] [address] [id number] [place] [address] Mar, [facility] [place] [facility] [address] [id number] [place] [address] 3569 Mar, [facility] [place] [facility] [address] [id number] [place] [address] Mar, [facility] [place] [facility] [address] [id number] [place] [address] Mar, [facility] [place] [facility] [address] [id number] [place] [address] 9586 Feb, [facility] [place] [facility] [address] [id number] [place] [address] Feb, [facility] [place] [facility] [address] [id number] [place] [address] Feb, [facility] [place] [facility] [address] [id number] [place] [address] 7277 Feb, [facility] [place] [facility] [address] [id number] [place] [address] Feb, [facility] [place] [facility] [address] [id number] [place] [address]- 2865 Feb, [facility] [place] [facility] [address] [id number] [place] [address]- [address]285 Feb, [facility] [place] [facility] [address] [id number] [place] [address] Feb, [facility] [place] [facility] [address] [id number] [place] [address] Feb, [facility] [place] [facility] [address] [id number] [place] [address]13 Feb, [facility] [place] [facility] [address] [id number] [place] [address] 1656 Feb, [facility] [place] [facility] [address] [id number] [place] [address]- [address]74 Feb, [facility] [place] [facility] [address] [id number] [place] [address]- [address] Feb, [facility] [place] [facility] [address] [id number] [place] [address]- 9364 Feb, [facility] [place] [facility] [address] [id number] [place] [address] 9413 Feb, [facility] [place] [facility] [address] [id number] [place] [address] 94[address] Feb, [facility] [place] [facility] [address] [id number] [place] [address] Jan, [facility] [place] [facility] [address] [id number] [place] [address] Jan, [facility] [place] [facility] [address] [id number] [place] [address]- 4984 Jan, [facility] [place] [facility] [address] [id number] [place] [address]- 36[address] Jan, [facility] [place] [facility] [address] [id number] [place] [address]657 Jan, [facility] [place] [facility] [address] [id number] [place] [address]- 0914 Jan, [facility] [place] [facility] [address] [id number] [place] [address]- 1429 Jan, [facility] [place] [facility] [address] [id number] [place] [address]- 1429 Jan, [facility] [place] [facility] [address] [id number] [place] [address]- 4378 Jan, [facility] [place] [facility] [address] [id number] [place] [address]- 7369 Jan, [facility] [place] [facility] [address] [id number], [place] [address] Jan, [facility] [place] [facility] [address] [id number], [place] [address] Jan, [facility] [place] [facility] [address] [id number], [place] [address] 39[address] Jan, [facility] [place] [facility] [address] [id number], [place] [address] Jan, [facility] [place] [facility] [address] [id number], [place] [address]- [address]27 Jan, [facility] [place] [facility] [address] [id number], [place] [address]- 7666 Jan, [facility] [place] [facility] [address] [id number], [place] [address] 39[address] Jan, [facility] [place] [facility] [address] [id number], [place] [address]- 97[address] Dec, [facility] [place] [facility] [address] [id number] [place] [address]- [address] 20 Dec, 2011 [facility] [place] [facility] [address] [id number] [place] [address] 2546 18 Dec, 2011 [facility] [place] [facility] [address] [id number] [place] [address] 2546 18 Dec, 2011 [facility] [place] [facility] [address] [id number] [place] [address] 2546 10 Dec, 2011 [facility] [place] [facility] [address] [id number] [place] [address] 2546 10 Dec, 2011 [facility] [place] [facility] [address] [id number] [place] [address] 2546 10 Dec, 2011 [facility] [place] [facility] [address] [id number] [place] [address] 2546 07 Dec, 2011 [facility] [place] [facility] [address] [id number] [place] [address]- [address] 30 Nov, 2011 [facility] [place] [facility] [address] [id number] [place] [address] 2542 Nov, [facility] [place] [facility] [address] [id number] [place] [address] 24 Nov, 2011 [facility] [place] [facility] [address] [id number] [place] [address] Nov, [facility] [place] [facility] [address] [id number] [place] [address] 2546 Nov, [facility] [place] [facility] [address] [id number] [place] [address] 2546 16 Nov, 2011 [facility] [place] [facility] [address] [id number] [place] [address] 2546 Oct, [facility] [place] [facility] [address] [id number] [place] [address] Oct, [facility] [place] [facility] [address] [id number] [place] [address] Oct, [facility] [place] [facility] [address] [id number] [place] [address] Oct, [facility] [place] [facility] [address] [id number] [place] [address] Oct, [facility] [place] [facility] [address] [id number] [place] [address] Oct, [facility] [place] [facility] [address] [id number] [place] [address] Oct, [facility] [place] [facility] [address] [id number] [place] [address] Sep, [facility] [place] [facility] [address] [id number] [place] [address] Sep, [facility] [place] [facility] [address] [id number] [place] [address] Sep, [facility] [place] [facility] [address] [id number] [place] [address] Sep, [facility] [place] [facility] [address] [id number] [place] [address] Sep, [facility] [place] [facility] [address] [id number] [place] [address] 15 Sep, 2011 [facility] [place] [facility] [address] [id number] [place] [address] 14 Sep, 2011 [facility] [place] [facility] [address] [id number] [place] [address]- [address] Sep, [facility] [place] [facility] [address] [id number] [place] [address] 05 Sep, 2011 [facility] [place] [facility] [address] [id number] [place] [address]- [address]28 04 Sep, 2011 [facility] [place] [facility] [address] [id number] [place] [address] August, [facility] [place] [facility] [address] [id number] [place] [address]- [address] August, [facility] [address] [id number] [place] [address] August, [facility] [place] [facility] [address] [id number] [place] [address] August, [facility] [place] [facility] [address] [id number] [place] [address]- 8513 August, [facility] [place] [facility] [address] [id number] [place] [address]- [address] Jul, [facility] [place] [facility] [address] [id number] [place] [address]- [address] Jul, [facility] [place] [facility] [address] [id number] [place] [address] 1697 Jul, [facility] [place] [facility] [address] [id number] [place] [address]- [address] Jul, [facility] [place] [facility] [address] [id number] [place] [address] Jul, [facility] [place] [facility] [address] [id number] [place] [address] Jul, [facility] [place] [facility] [address] [id number] [place] [address]776 Jul, [facility] [place] [facility] [address] [id number] [place] [address] 59[address] Jun, [facility] [place] [facility] [address] [id number] [place] [address] Jun, [facility] [place] [facility] [address] [id number] [place] [address]- 6244 Jun, [facility] [place] [facility] [address] [id number] [place] [address]- 8344 Jun, [facility] [place] [facility] [address] [id number] [place] [address] 2612 Jun, [facility] [place] [facility] [address] [id number] [place] [address] 8169 May, [facility] [place] [facility] [address] [id number] [place] [address]- 4566 May, [facility] [place] [facility] [address] [id number] [place] [address]- [address] May, [facility] [place] [facility] [address] [id number] [place] [address]- 2036 May, [facility] [place] [facility] [address] [id number] [place] [address] 2549 May, [facility] [place] [facility] [address] [id number] [place] [address], [place] [address] May, [facility] [place] [facility] [address] [facility] [id number] [place] [address]- [address] Apr, [facility] [place] [facility] [address] [id number] [place] [address]- [address]240 Mar, [facility] [place] [facility] [address] [id number] [place] [address] 280[address] Feb, [facility] [place] [facility] [address] [id number] [place] [address]- 8370 Feb, [facility] [place] [facility] [address] [id number] [place] [address]- 5161 Feb, [facility] [place] [facility] [address] [id number] [place] [address]- 9871 Feb, [facility] [place] [facility] [address] [id number] [place] [address] 2549 Jan, [facility] [place] [facility] [address] [id number] [place] [address] 2541 Jan, [facility] [place] [facility] [address] [facility] [id number] [place] [address]- 2543 Jan, [facility] [place] [facility] [address] [id number] [place] [address]- 6823 24 Jan, 2011 [facility] [address] [id number] [place] [address]- 7533 14 Jan, 2011 [facility] [place] [facility] [address] [id number] [place] [address]- [address]376 19 Dec, 2010 [facility] [place] [facility] [address] [id number] [place] [address]- 9776 20 Oct, 2010 [facility] [place] [facility] [address] [id number] [place] [address]- 68[address] August, [facility] [address] [id number] [place] [address]- 7984 29 Mar, 2010 [facility] [place] [facility] [address] [id number] [place] [address]- 6448 27 Mar, 2010 [facility] [place] [facility] [address] [id number] [place] [address]- 9845 16 Mar, 2010 [facility] [place] [facility] [address] [id number], [place] [address] 15 Mar, 2010 [facility] [place] [facility] [address] [id number] [place] [address]- 8124 15 Mar, 2010 [facility] [place] [facility] [address] [id number] [place] [address]- 4845 08 Mar, 2010 [facility] [place] [facility] [address] [id number], [place] [address]98 03 Mar, 2010 [facility] [place] [facility] [address] [id number], [place] [address]- [address] 24 Feb, 2010 [facility] [place] [facility] [address] [id number] [place] [address]- 5006 24 Feb, 2010 [facility] [place] [facility] [address] [id number], [place] [address]- [address] 15 Feb, 2010 [facility] [place] [facility] [address] [id number], [place] [address]- 4316 19 Jan, 2010 [facility] [place] [facility] [address] [id number] [place] [address]- 2797 18 Jan, 2010 [facility] [place] [facility] [address] [id number] [place] [address]- 8700 18 Jan, 2010 [facility] [place] [facility] [address] [id number] [place] [address]- 5970 Nov, [facility] [place] [facility] [address] [id number] [place] [address]- 9798 Sep, [facility] [place] [facility] [address] [id number] [place] [address]- 0675 August, [facility] [place] [facility] [address] [id number] [place] [address]- 8547 30 Mar, 2009 [facility] [place] [facility] [address] [id number] [place] [address]- 3569 Mar, [facility] [place] [facility] [address] [facility] [id number] [place] [address]- 7690 17 Feb, 2009 [facility] [place] [facility] [address] [id number] [place] [address]- 4476 10 Feb, 2009 [facility] [place] [facility] [address] [facility] [facility] [id number] [place] [address]- 8470 10 Feb, 2009 [facility] [place] [facility] [address] [facility] [facility] [id number] [place] [address]- 3236 10 Feb, 2009 [facility] [place] [facility] [address] [id number] [place] [address]- 2543 06 Feb, 2009 [facility] [place] [facility] [address] [id number], [place] [address]- 254 27 Jan, 2009 [facility] [place] [facility] [address] [id number] [place] [address] 254 26 Jan, 2009 [facility] [place] [facility] [address] [facility] [facility] [id number] [place] [address]- 2541 20 Jan, 2009 [facility] [place] [facility] [address] [id number], [place] [address]- [address] Jan, [facility] [address] [id number], [place] [address]- [address] Nov, [facility] [address] [id number], [place] [address] Sep, [facility] [address] [id number], [place] [address]- [address] August, [facility] [id number], [place] [address] Jul, [facility] [address] [id number], [place] [address] May, IMMUNIZATIONS No Known Immunizations SOCIAL HISTORY Never Assessed REASON FOR VISIT med refill PLAN OF CARE VITAL SIGNS MEDICATIONS Medication Instructions Dosage Frequency Start Date End Date Duration Status Remeron 45 MG Orally Once a day at bedtime 1 tablet Feb, 30 days Active RESULTS No Results PROCEDURES [...] Knee Surgery 07/16/17 Hospitalization History [facility] [place]- left hand/wrist swelling 10/09/2017
--- OUTSIDE RECORDS SUMMARY | 2018-01-01 12:47 | XMS REPORT ---
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 Active 96024996 Problem Colon polyp K63.5 Active 22776646 Problem Bilateral low back pain without sciatica M54.5 Active 449478208 Problem Screening breast examination Z12.39 Active 711424661 Problem Postmenopausal Z78.0 Active 81768044 Problem Osteopenia M85.80 Active 134053236 Problem Cigarette nicotine dependence without complication F17.210 Active 31596646 Problem Type 2 diabetes mellitus with diabetic peripheral angiopathy without gangrene E11.51 Active 829271471 Problem Vascular dementia without behavioral disturbance F01.50 Active [id number] Problem Unspecified atherosclerosis of klamath arteries of extremities, unspecified extremity I70.209 Active 305874751175170 Problem Arthritis M19.90 Active 7249155 Problem Chronic atrial fibrillation I48.2 Active 938135246 Problem Chronic obstructive pulmonary disease with acute lower respiratory infection J44.0 Active 801394524 Problem Other chronic pancreatitis K86.1 Active 401595332 Problem Stress incontinence of urine N39.3 Active 33952949 Problem Controlled type 2 diabetes mellitus without complication, without long -term current use of insulin E11.9 Active 435322235 Problem Unspecified psychosis F29 Active 48281660 Problem Xeroderma Q80.9 Active 85440813 Problem COPD (chronic obstructive pulmonary disease) J44.9 Active 17345022 Problem Dementia without behavioral disturbance, unspecified dementia type F03.90 Active 12448967 Problem Gastroparesis K31.84 Active 611400974 Problem Type 2 diabetes mellitus with diabetic neuropathy, without long-term current use of insulin E11.40 Active 37474927 Problem Osteoporosis M81.0 Active 01646089 Problem 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 Active 059516775429900 Problem Hyperlipidemia E78.5 Active 64618088 Problem Diabetic polyneuropathy associated with type 2 diabetes mellitus E11.42 Active 91738891 Problem Essential tremor G25.0 Active 25970820 Problem 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 Active 5668243119349 Problem Generalized anxiety disorder F41.1 Active 727306815 Problem Gastroesophageal reflux disease, esophagitis presence not specified K21.9 Active 890415738 Problem 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 I25.118 Active 8824263919361 Problem Postconcussion syndrome F07.81 Active 41343612 Problem Chronic pain syndrome G89.4 Active 670792742 Problem Migraine without aura and without status migrainosus, not intractable G43.009 Active 524920979 Problem Paroxysmal atrial fibrillation I48.0 Active 078744557 Problem Migraine without aura and with status migrainosus, not intractable G43.001 Active 898461349 Problem Cervicalgia M54.2 Active 0097386324817 Problem Acute exacerbation of chronic obstructive pulmonary disease (COPD) J44.1 Active 896166494 Problem Major depressive disorder, recurrent episode, moderate F33.1 Active 363130859 Problem Crohn''s disease without complication, unspecified gastrointestinal tract location K50.90 Active 84346123 Problem Chronic fatigue R53.82 Active 11937962 Problem Bipolar affective disorder, currently depressed, moderate F31.32 Active 243284309 ALLERGIES No Information ENCOUNTERS Encounter Location Date Diagnosis [facility] [id number] [address] Nov, [facility] [address] [address] Nov, [facility] [address], [place] [address] 1873 Oct, [facility] [address], [place] [address] 4349 Oct, [facility] [address], [place] [address] 6683 Oct, Edema of both legs R60.0 [place] [id number] [place] [address] 25807- 7097 Oct, [facility] [address], [place] [address] Sep, [place] [id number] [place] [address] 09235- 3493 Sep, [facility] [id number] [place] [address] 62959- 8540 Sep, [place] [id number] [place] [address] 13669- 4720 Sep, Encounter for well woman exam with routine gynecological exam Z01.419 ; Screening for STDs (sexually transmitted diseases) Z11.3 ; Screening breast examination Z12.31 and Overweight (BMI 25.0-29.9) E66.3 [place] [address] [address] 0[address] Sep, [place] [id number] [place] [address] 07357- 7470 Sep, [place] [address], [place] [address] 0144 Sep, [place] [address], [place] [address] 0795 August, [place] [address] [address] 2829 August, [place] [address] [place] [address] 63272- 2917 August, Type 2 diabetes mellitus with diabetic neuropathy, without long-term current use of insulin E11.40 and Sprain of right ankle, unspecified ligament, initial encounter S93.401A [place] [id number] [place] [address] 07436- 5130 August, [facility] [id number] [place] [address] 41505- 1644 August, [facility] [id number] [place] [address] 36835- 8304 August, [facility] [id number] [place] [address] 15493- 1850 August, Gastroesophageal reflux disease, esophagitis presence not specified K21.9 [facility] [id number] [place] [address] 28282- 5287 August, [facility] [id number] [place] [address] 21663- 7889 August, [facility] [id number] [place] [address] 35360- 5268 August, [facility] [id number] [place] [address] 62380- 7484 August, Type 2 diabetes mellitus with diabetic neuropathy, without long-term current use of insulin E11.40 and Elevated liver enzymes R74.8 [facility] [id number] [place] [address] 09159- 2437 Jul, [facility] [id number] [place] [address] 26781- 2005 Jul, Cough R05 [facility] [id number] [place] [address] 12449- 4914 Jul, [facility] [id number] [place] [address] 98942- 3747 Jul, [facility] [id number] [place] [address] 81757- 3861 Jul, Bipolar affective disorder, currently depressed, moderate F31.32 ; Vascular dementia without behavioral disturbance F01.50 and Generalized anxiety disorder F41.1 [facility] [id number] [place] [address] 21956- 5215 Jul, [facility] [id number] [place] [address] 84869- 4315 Jul, Type 2 diabetes mellitus with diabetic neuropathy, without long-term current use of insulin E11.40 and Elevated liver enzymes R74.8 [facility] [address] 39497- 4638 Jul, [facility] [address] 80238- 3095 Jul, [facility] [address] 58980- 1850 Jul, [place] [address] 01036- 0069 Jul, Post-menopausal Z78.0 [facility] [address] 37071- 0672 Jul, Stress incontinence of urine N39.3 [facility] [address] 48233- 3160 Jul, [facility] [address] 19312- 9179 Jul, [facility] [address] 39735- 6593 Jul, Stress incontinence of urine N39.3 and Cough R05 [facility] [address] 97645- 1058 Jul, [facility] [address] 35171- 8438 Jul, [facility] [address] 13369- 5271 Jul, [facility] [address] 13249- 9006 Jul, Gastroesophageal reflux disease, esophagitis presence not specified K21.9 [facility] [address] 47908- 4357 Jun, Diabetic polyneuropathy associated with type 2 diabetes mellitus E11.42 [facility] [id number] [place] [address] 99538- 7538 Jun, Diabetic polyneuropathy associated with type 2 diabetes mellitus E11.42 ; 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 I25.118 and Paroxysmal atrial fibrillation I48.0 [facility] [id number] [place] [address] 24442- 6315 Jun, [facility] [id number] [place] [address] 05553- 4697 Jun, [facility] [id number] [place] [address] 20670- 7380 Jun, Gastroenteritis K52.9 [facility] [id number] [place] [address] 27838- 6204 Jun, Gastroenteritis K52.9 [facility] [id number] [place] [address] 19360- 0599 Jun, [facility] [id number] [place] [address] 58010- 8522 Jun, [facility] [id number] [place] [address] 27784- 7296 Jun, Sprain of right ankle, unspecified ligament, initial encounter S93.401A ; Type 2 diabetes mellitus with diabetic neuropathy, without long-term current use of insulin E11.40 ; 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 ; 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 ; Chronic atrial fibrillation I48.2 and Crohn''s disease without complication, unspecified gastrointestinal tract location K50.90 [facility] [id number] [place] [address] 08422 -9527 17 Jun, 2017 Chronic obstructive pulmonary disease with acute lower respiratory infection J44.0 and Cough R05 [facility] [id number] [place] [address] 79533- 8114 Jun, [facility] [address], [place] [address]- 9945 Jun, Coughing R05 ; Unspecified atherosclerosis of klamath arteries of extremities, unspecified extremity I70.209 ; Type 2 diabetes mellitus with diabetic peripheral angiopathy without gangrene E11.51 ; Crohn''s disease without complication, unspecified gastrointestinal tract location K50.90 ; Other chronic pancreatitis K86.1 and Chronic atrial fibrillation I48.2 [facility] [address], [place] [address] Jun, [facility] [id number] [place] [address] 25283- 7831 Jun, Bipolar affective disorder, currently depressed, moderate F31.32 ; Vascular dementia without behavioral disturbance F01.50 and Generalized anxiety disorder F41.1 [facility] [id number] [place] [address] 70687- 9620 May, Generalized anxiety disorder F41.1 [facility] [id number] [place] [address] 67941- 5844 May, [facility] [id number] [place] [address] 31354- 6191 May, [facility] [id number] [place] [address] 69604- 1657 May, Coughing R05 [facility] [id number] [place] [address] 66677- 3294 May, [facility] [id number] [place] [address] 74110- 3469 May, Bipolar affective disorder, currently depressed, moderate F31.32 ; Vascular dementia without behavioral disturbance F01.50 and Generalized anxiety disorder F41.1 [facility] [address], [place] [address]- 2119 Apr, Generalized anxiety disorder F41.1 [facility] [id number] [place] [address] 08176- 3652 Apr, [place] [id number] [place] [address] 47590- 6288 Apr, Vascular dementia without behavioral disturbance F01.50 ; Generalized anxiety disorder F41.1 and Bipolar affective disorder, currently depressed, moderate F31.32 [place] [id number] [place] [address] 28769- 8296 Apr, Generalized anxiety disorder F41.1 [facility] [id number] [place] [address] 07897 -1286 Apr, Cough R05 and Acute exacerbation of chronic obstructive pulmonary disease (COPD) J44.1 [place] [id number] [place] [address] 07157- 4497 Apr, [facility] [id number] [place] [address] 76538 -7234 Mar, Cough R05 and Cigarette nicotine dependence without complication F17.210 [place] [id number] [place] [address] 64688- 7272 Mar, [place] [id number] [place] [address] 76005- 4416 Feb, Generalized anxiety disorder F41.1 ; Major depressive disorder, recurrent episode, moderate F33.1 ; Vascular dementia without behavioral disturbance F01.50 and Unspecified psychosis F29 [place] [id number] [place] [address] 70010- 8048 Feb, [place] [id number] [place] [address] 35285- 4388 Feb, [place] [id number] [place] [address] 35943- 2381 Feb, Generalized anxiety disorder F41.1 [place] [id number] [place] [address] 71439- 1889 Feb, Generalized anxiety disorder F41.1 [place] [id number] [place] [address] 00625- 0276 Feb, Dizziness R42 ; Chronic fatigue R53.82 ; Postconcussion syndrome F07.81 ; Fall, initial encounter W19.XXXA and Disorientation R41.0 [facility] [id number] [place] [address] 37938- 4383 Feb, Postconcussion syndrome F07.81 ; Injury of head, initial encounter S09.90XA ; Fall, initial encounter W19.XXXA ; Disorientation R41.0 and Acute cystitis with hematuria N30.01 [place] [place] [address] 11862- 3225 Jan, Gastroesophageal reflux disease, esophagitis presence not specified K21.9 ; Post-menopausal Z78.0 and Migraine without aura and without status migrainosus, not intractable G43.009 [facility] [address] 80141- 7894 Jan, [place] [address] 55889- 9035 Jan, Generalized anxiety disorder F41.1 ; Major depressive disorder, recurrent episode, moderate F33.1 ; Vascular dementia without behavioral disturbance F01.50 and Unspecified psychosis F29 [facility] [id number] [place] [address] 96027- 3774 Jan, Pneumonia of left lower lobe due to infectious organism J18.1 [facility] [address] 50012- 2381 Jan, Migraine without aura and with status migrainosus, not intractable G43.001 [facility] [address] 17653 -4397 Jan, Migraine without aura and without status migrainosus, not intractable G43.009 [facility] [id number] [place] [address] 13959- 6512 Dec, Hematoma T14.8 [facility] [address] [place] [address] 69777- 0900 Dec, [facility] [id number] [place] [address] 07365 -7527 Nov, Fatigue, unspecified type R53.83 [facility] [id number] [place] [address] 21207- 8814 Nov, Scabies B86 and 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 I25.118 [facility] [id number] [place] [address] 56039- 3745 Nov, [facility] [id number] [place] [address] 80142- 7978 Nov, [facility] [id number] [place] [address] 23031- 8736 Oct, [facility] [id number] [place] [address] 97289- 3806 Oct, Generalized anxiety disorder F41.1 and Major depressive disorder, recurrent episode, moderate F33.1 [facility] [id number] [place] [address] 51525- 8015 Oct, Cramp of both lower extremities R25.2 [facility] [id number] [place] [address] 42697- 1891 Oct, Leg cramps R25.2 [facility] [id number] [place] [address] 81192- 1767 Oct, Chronic pain syndrome G89.4 [facility] [id number] [place] [address] 68621- 4488 Oct, [facility] [id number] [place] [address] 47052- 6943 Oct, [facility] [id number] [place] [address] 97405- 6769 11 Nacho, 2017 Routine gynecological examination Z01.419 and Screening for breast cancer Z12.31 [facility] [id number] [place] [address] 74958- 2232 28 Sep, 2016 Diarrhea R19.7 [facility] [id number] [place] [address] 45339- 9107 26 Sep, 2016 Back pain M54.9 [place] [address] 46237- 1073 Sep, [place] [id number] [place] [address] 51306- 8595 Sep, [facility] [place] [address] 80390 -4046 August, Xeroderma Q80.9 [address] [address] 11835- 2115 August, Dementia without behavioral disturbance, unspecified dementia type F03.90 [place] [id number] [place] [address] 32890- 0426 August, Chronic pain syndrome G89.4 [place] [id number] [place] [address] 17675- 1279 August, [place] [id number] [place] [address] 19897- 8467 August, Hyperlipidemia E78.5 ; Other fatigue R53.83 and Other specified hypotension I95.89 [facility] [id number] [place] [address] 37245 -6240 August, Dysuria R30.0 ; Other fatigue R53.83 and Other specified hypotension I95.89 [place] [id number] [place] [address] 71785- 5549 August, [place] [id number] [place] [address] 24266- 7385 Jul, Pain in left knee M25.562 and Gastroenteritis K52.9 [place] [id number] [place] [address] 79709- 9143 Jul, [place] [address] 77329- 2932 Jul, Diarrhea R19.7 [facility] [id number] [place] [address] 83153 -1518 Jul, Spider bite, accidental or unintentional, initial encounter T63.301A [place] [address] 34996- 3020 Jul, Primary osteoarthritis of right knee M17.11 and Arthritis M19.90 [place] [address] 32909- 2066 Jul, Generalized anxiety disorder F41.1 and Major depressive disorder, recurrent episode, moderate F33.1 [place] [address] 35236- 6196 Jul, Type 2 diabetes mellitus with diabetic polyneuropathy E11.42 and Temporal headache R51 [place] [address] 43792- 7670 Jul, Back pain M54.9 [place] [address] 42155- 2081 Jul, [place] [id number] [place] [address] 94367- 0450 Jul, [place] [id number] [place] [address] 98610- 0154 Jun, Nausea R11.0 [facility] [address] 28101 -5196 Jun, Acute suppurative otitis media of both ears without spontaneous rupture of tympanic membranes, recurrence not specified H66.003 and COPD exacerbation J44.1 [facility] [id number] [place] [address] 58294- 3570 Jun, Generalized anxiety disorder F41.1 [facility] [id number] [place] [address] 68696- 8557 16 Jun, 2016 [facility] [address] 61641 -4620 Jun, [facility] [id number] [place] [address] 73386 -9520 13 Jun, 2016 Shortness of breath R06.02 and COPD exacerbation J44.1 [facility] [address] 33128- 4209 10 Jun, 2016 Eczema, unspecified type L30.9 [place] [address] 36448- 9789 09 Jun, 2016 [facility] [address] 32071- 9370 May, [place] [address] 31689- 8242 May, Muscle cramping R25.2 [place] [id number] [place] [address] 06190- 7038 May, [place] [id number] [place] [address] 93787- 8857 Apr, Diarrhea R19.7 [place] [id number] [place] [address] 15782- 4487 Apr, [facility] [id number] [place] [address] 95389- 8037 Apr, Chronic pain syndrome G89.4 [facility] [id number] [place] [address] 99759- 2165 Apr, Cramp of both lower extremities R25.2 and Vascular dementia without behavioral disturbance F01.50 [facility] [id number] [place] [address] 69870- 3891 03 Apr, 2016 Type 2 diabetes mellitus with diabetic polyneuropathy E11.42 and Cigarette nicotine dependence without complication F17.210 [facility] [id number] [place] [address] 67383- 6023 Mar, Generalized anxiety disorder F41.1 [place] [id number] [place] [address] 38976- 2497 Feb, Generalized anxiety disorder F41.1 and Major depressive disorder, recurrent episode, moderate F33.1 [place] [address] 79052- 6825 Feb, [facility] [id number] [place] [address] 48567 -3293 Feb, Dysuria R30.0 and Acute cystitis with hematuria N30.01 [place] [id number] [place] [address] 72797- 0401 Jan, [place] [address] 24866- 1319 Jan, [place] [id number] [place] [address] 95752- 1435 Jan, [place] [address] 02446- 6160 Jan, [facility] [id number] [place] [address] 39235 -0056 Jan, Wasp sting, accidental or unintentional, initial encounter T63.461A [place] [address] 30686- 1816 Jan, Encounter for immunization Z23 [place] [id number] [place] [address] 87205- 8182 Jan, [place] [address] 13987- 5869 Jan, [place] [id number] [place] [address] 94139- 2029 Dec, Generalized anxiety disorder F41.1 and Major depressive disorder, recurrent episode, moderate F33.1 [facility] [address], [place] [address] 7588 21 Dec, 2015 Routine gynecological examination Z01.419 ; Postmenopausal Z78.0 ; Screening breast examination Z12.39 ; Osteopenia M85.80 and Breast cancer screening Z12.39 [facility] [address], [place] [address] 0980 20 Dec, 2015 [facility] [address], [place] [address] 9570 19 Dec, 2015 [facility] [address], [place] [address] 8386 16 Dec, 2015 [facility] [id number] [place] [address] 30225- 5893 16 Dec, 2015 [facility] [id number] [place] [address] 79375- 6592 14 Dec, 2015 [facility] [address], [place] [address]- 5629 06 Dec, 2015 [facility] [address], [place] [address] 7163 30 Nov, 2015 [facility] [address], [place] [address] Nov, Cough R05 ; Other viral agents as the cause of diseases classified elsewhere B97.89 and Acute upper respiratory infection, unspecified J06.9 [facility] [address], [place] [address] 0847 Nov, [facility] [address], [place] [address] 1732 Nov, [facility] [address], [place] [address]- 1641 Nov, [facility] [address], [place] [address]- 1628 Nov, [facility] [id number] [address] 7132 Nov, [facility] [id number] [place] [address] 62132- 5604 Oct, [facility] [id number] [place] [address] 81027- 9968 Oct, [facility] [id number] [place] [address] 53694- 1088 Oct, [facility] [id number] [place] [address] 24029- 1659 Oct, Chronic pain syndrome G89.4 [facility] [id number] [place] [address] 91457- 3507 Sep, Generalized anxiety disorder F41.1 and Major depressive disorder, recurrent episode, moderate F33.1 [facility] [id number] [place] [address] 01158- 4974 Sep, [facility] [id number] [place] [address] 85007- 7901 Sep, [facility] [id number] [place] [address] 05025- 7485 Sep, Generalized anxiety disorder F41.1 [facility] [id number] [place] [address] 20885- 2961 Sep, Cramp of both lower extremities R25.2 and Cervicalgia M54.2 [facility] [id number] [place] [address] 18018- 8177 Sep, Generalized anxiety disorder F41.1 [facility] [id number] [place] [address] 10820- 2291 Sep, [facility] [id number] [place] [address] 50883 -4350 August, Rash R21 ; Itching L29.9 and Allergic response, subsequent encounter T78.40XD [facility] [id number] [place] [address] 99164- 0013 August, Primary insomnia F51.01 [facility] [id number] [place] [address] 51729 -1330 August, Rash R21 ; Itching L29.9 and Allergic response, initial encounter T78.40XA [facility] [id number] [place] [address] 62594- 6237 August, [facility] [address] 45258- 0495 August, Cramp of both lower extremities R25.2 [place] [address] 92784- 3985 August, Back pain M54.9 [facility] [address] 10932- 6743 August, [facility] [address] 43887- 5312 August, [facility] [id number] [place] [address] 84480 -2401 August, Cramp of both lower extremities R25.2 [facility] [id number] [place] [address] 20131- 9541 August, [facility] [id number] [place] [address] 33195- 5803 August, Syncope R55 ; Paroxysmal atrial fibrillation I48.0 ; Dementia without behavioral disturbance, unspecified dementia type F03.90 and Chronic pain syndrome G89.4 [facility] [id number] [place] [address] 05811- 2245 August, Type 2 diabetes mellitus with diabetic polyneuropathy E11.42 and Syncope R55 [facility] [id number] [place] [address] 50328- 3367 Jul, [facility] [address] 49707- 3895 Jul, [facility] [address] [facility] [id number] [address] 5756 Jul, [facility] [address] [facility] [id number] [address]- 7098 Jul, [facility] [address], [place] [address]- 2430 Jul, [facility] [address], [place] [address]- 5105 Jul, UTI (urinary tract infection) N39.0 [facility] [id number] [place] [address] 17419- 4987 Jul, [facility] [id number] [place] [address] 89136- 0294 18 Jul, 2015 Major depressive disorder, recurrent episode, moderate F33.1 and Generalized anxiety disorder F41.1 [facility] [address], [place] [address]- 1585 Jul, Generalized anxiety disorder F41.1 [facility] [id number] [place] [address] 06688- 3110 Jul, Diarrhea R19.7 [facility] [address], [place] [address]- 2627 14 Jul, 2015 [facility] [address], [place] [address]- 3681 Jun, [facility] [address], [place] [address]- 254 Jun, Eczema L30.9 [facility] [address], [place] [address]- 2643 Jun, [facility] [address], [place] [address]- 9552 17 Jun, 2015 COPD (chronic obstructive pulmonary disease) J44.9 [facility] [address], [place] [address]- 9320 Jun, [facility] [address], [place] [address]- 9619 Jun, Major depressive disorder, recurrent episode, moderate F33.1 and Generalized anxiety disorder F41.1 [facility] [address], [place] [address]- 7320 May, [facility] [address], [place] [address]- 4149 May, UTI (urinary tract infection) N39.0 [facility] [address], [place] [address]- 6175 May, [facility] [address], [place] [address]- 2180 May, [facility] [address], [place] [address]- 0992 May, [facility] [address], [place] [address]- 4224 May, [facility] [address], [place] [address]- 6349 Apr, Major depressive disorder, recurrent episode, moderate F33.1 and Generalized anxiety disorder F41.1 [facility] [address], [place] [address]- 8828 Apr, COPD (chronic obstructive pulmonary disease) J44.9 [facility] [address], [place] [address]- 4656 Apr, [facility] [address], [place] [address]- 4129 Apr, Atrial flutter I48.92 [facility] [address], [place] [address]- 4068 Apr, [facility] [address], [place] [address]- 8669 Apr, [facility] [address], [place] [address]- 5144 Mar, [facility] [id number] [place] [address] 34728- 3651 Mar, [facility] [id number] [place] [address] 61942- 0412 Mar, [facility] [id number] [place] [address] 71718- 8276 Mar, Hyperlipidemia E78.5 ; Type 2 diabetes mellitus with diabetic polyneuropathy E11.42 ; Major depressive disorder, recurrent episode, moderate F33.1 and Chronic pain syndrome G89.4 [facility] [id number] [place] [address] 55340- 7336 Mar, [facility] [id number] [place] [address] 97792- 3887 Mar, [facility] [id number] [place] [address] 05210- 9864 Mar, [facility] [id number] [place] [address] 97824- 2057 Mar, [facility] [id number] [place] [address] 93241- 3433 Feb, COPD (chronic obstructive pulmonary disease) J44.9 and Back pain M54.9 [facility] [address], [place] [address]- 3817 Feb, [facility] [id number] [place] [address] 65438- 8104 Feb, [facility] [id number] [place] [address] 93195- 3197 Feb, [facility] [id number] [place] [address] 95830- 5936 Feb, [facility] [id number] [place] [address] 53230- 5565 Feb, [facility] [id number] [place] [address] 80324- 8212 Feb, [facility] [id number] [place] [address] 77329- 8618 Feb, [facility] [id number] [place] [address] 89419- 4377 Feb, [facility] [address] 26902- 3732 Feb, Diabetes E11.9 ; Back pain M54.9 and COPD (chronic obstructive pulmonary disease) J44.9 [facility] [id number] [place] [address] 07395- 8645 Jan, [facility] [id number] [place] [address] 19624- 2866 Jan, Major depression, recurrent F33.9 and Generalized anxiety disorder F41.1 [facility] [id number] [place] [address] 25710- 8338 Jan, Chronic pain G89.29 [facility] [id number] [place] [address] 07544- 2661 Jan, [facility] [id number] [place] [address] 29671- 0335 Jan, [facility] [id number] [place] [address] 55910- 9083 Jan, [facility] [id number] [place] [address] 55822- 4269 Jan, [facility] [id number] [place] [address] 52913- 3958 Jan, Nicotine dependence F17.200 [facility] [id number] [place] [address] 70578- 4915 Jan, Nicotine dependence F17.200 and Back pain M54.9 [facility] [address] [address]- 1392 Jan, [facility] [id number] [place] [address] 40414- 7746 28 Dec, 2014 [facility] [id number] [place] [address] 40987- 7014 25 Dec, 2014 Anxiety, generalized 300.02 and Major depression, recurrent 296.30 [facility] [id number] [place] [address] 37277- 7172 24 Dec, 2014 [facility] [id number] [place] [address] 77911- 4877 21 Dec, 2014 [facility] [id number] [place] [address] 62505- 6003 17 Dec, 2014 [facility] [id number] [place] [address] 40311- 6324 15 Dec, 2014 [facility] [id number] [place] [address] 42815- 0739 14 Dec, 2014 [facility] [id number] [place] [address] 02856- 4909 11 Dec, 2014 [facility] [id number] [place] [address] 57172- 7723 10 Dec, 2014 [facility] [address], [place] [address]- 8113 08 Dec, 2014 Skin tear 879.8 [facility] [id number] [place] [address] 44467- 4679 08 Dec, 2014 Routine gynecological examination V72.31 ; Breast cancer screening V76.10 and Family history of breast cancer in first degree relative V16.3 [facility] [id number] [place] [address] 62297- 1494 03 Dec, 2014 [facility] [address], [place] [address]- 1119 02 Dec, 2014 [facility] [id number] [place] [address] 52498- 7306 Nov, [facility] [id number] [place] [address] 97231- 4830 Nov, [facility] [id number] [place] [address] 90073- 1571 Nov, Poor balance 781.99 and Vascular dementia, uncomplicated 290.40 [facility] [address] 52118- 6435 Nov, [facility] [address] 98831- 4224 Nov, Major depression, recurrent 296.30 and Anxiety, generalized 300.02 [facility] [id number] [place] [address] 37811- 7067 Nov, [facility] [address] 90495- 0449 Nov, [facility] [id number] [place] [address] 13272- 9795 Nov, [facility] [id number] [place] [address] 95750- 1182 Nov, [facility] [id number] [place] [address] 29382- 6361 Nov, Vascular dementia, uncomplicated 290.40 and Lumbago 724.2 [facility] [id number] [place] [address] 97010- 0713 Nov, [facility] [id number] [place] [address] 45708- 6645 Nov, [facility] [id number] [place] [address] 38190- 4326 Nov, [facility] [id number] [place] [address] 63088- 8489 Oct, [facility] [id number] [place] [address] 44320- 7516 Oct, [facility] [id number] [place] [address] 69721- 3763 Oct, [facility] [id number] [place] [address] 96275- 2863 Oct, COPD (chronic obstructive pulmonary disease) 496 and Hyperlipidemia 272.4 [facility] [id number] [place] [address] 54649- 1880 Oct, Major depression, recurrent 296.30 and Anxiety, generalized 300.02 [facility] [id number] [place] [address] 44920- 6467 Oct, [facility] [id number] [place] [address] 79553- 2887 Oct, [facility] [id number] [place] [address] 93510- 4481 Oct, [facility] [id number] [place] [address] 19291- 9563 Sep, Lumbago 724.2 and Anxiety state, unspecified 300.00 [facility] [id number] [place] [address] 69463- 0927 Sep, [facility] [id number] [place] [address] 10227- 8766 Sep, [facility] [id number] [place] [address] 66818- 1980 August, [facility] [id number] [place] [address] 98628- 3123 August, Major depression, recurrent 296.30 ; Anxiety, generalized 300.02 and No condition on [place] II V71.09 [facility] [address] [address]- 1984 August, [facility] [id number] [address]- 5653 August, [facility] [id number] [place] [address]- 3079 29 Jul, 2014 [facility] [address] [id number] [place] [address]- 4316 14 Jul, 2014 [facility] [place] [facility] [address] [id number] [place] [address]- 6056 13 Jul, 2014 [facility] [place] [facility] [address] [id number] [place] [address]- 1256 30 Jun, 2014 [facility] [place] [facility] [address] [id number] [place] [address]- 3364 30 Jun, 2014 [facility] [place] [facility] [address] [id number] [place] [address]- 3126 27 Jun, 2014 [facility] [place] [facility] [address] [id number] [place] [address]- 6084 27 Jun, 2014 [facility] [place] [facility] [address] [id number] [place] [address]- 9346 26 Jun, 2014 [facility] [place] [facility] [address] [id number] [place] [address]- 1195 23 Jun, 2014 [facility] [place] [facility] [address] [id number] [place] [address]- 7306 23 Jun, 2014 [facility] [place] [facility] [address] [id number] [place] [address]- 9153 17 Jun, 2014 [facility] [place] [facility] [address] [id number] [place] [address]- 4546 13 Jun, 2014 [facility] [place] [facility] [address] [id number] [place] [address]- 4375 13 Jun, 2014 [facility] [place] [facility] [address] [id number] [place] [address]- 2793 10 Jun, 2014 [facility] [place] [facility] [address] [id number] [place] [address]- 4816 10 Jun, 2014 [facility] [place] [facility] [address] [id number] [place] [address]- 0675 07 Jun, 2014 [facility] [place] [facility] [address] [id number] [place] [address]- 0553 Jun, 2014 [facility] [place] [facility] [address] [id number] [place] [address]- 7453 Jun, 2014 [facility] [place] [facility] [address] [id number] [place] [address]- 7892 Jun, 2014 [facility] [place] [facility] [address] [id number] [place] [address]- 5854 May, 2014 [facility] [place] [facility] [address] [id number] [place] [address]- 0476 May, 2014 [facility] [place] [facility] [address] [id number] [place] [address]- 5770 May, 2014 [facility] [place] [facility] [address] [facility] [id number] [place] [address]- 5398 May, 2014 [facility] [place] [facility] [address] [facility] [id number] [place] [address]- 9880 May, 2014 [facility] [place] [facility] [address] [facility] [id number] [place] [address]- 9595 May, 2014 [facility] [place] [facility] [address] [facility] [id number] [place] [address]- 4007 May, 2014 [facility] [place] [facility] [address] [facility] [id number] [place] [address]- 5551 May, 2014 [facility] [place] [facility] [address] [facility] [id number] [place] [address]- 2983 May, 2014 [facility] [place] [facility] [address] [facility] [id number] [place] [address]- 3580 May, 2014 [facility] [place] [facility] [address] [facility] [id number] [place] [address]- 2937 May, 2014 [facility] [place] [facility] [address] [facility] [id number] [place] [address]- 9879 May, 2014 [facility] [place] [facility] [address] [id number] [place] [address]- 9831 May, [facility] [place] [facility] [address] [id number] [place] [address]- 7633 May, [facility] [place] [facility] [address] [id number] [place] [address]- 4527 Apr, [facility] [place] [facility] [address] [id number] [place] [address]- 6522 Apr, [facility] [place] [facility] [address] [id number] [place] [address]- 8315 Apr, [facility] [place] [facility] [address] [id number] [place] [address]- 4110 Apr, [facility] [place] [facility] [address] [id number] [place] [address]- 1473 Apr, [facility] [place] [facility] [address] [id number] [place] [address]- 7471 Apr, [facility] [place] [facility] [address] [id number] [place] [address]- 4710 Apr, [facility] [place] [facility] [address] [id number] [place] [address]- 7889 Apr, [facility] [place] [facility] [address] [id number] [place] [address]- 3193 Apr, [facility] [place] [facility] [address] [id number] [place] [address]- 1140 Apr, [facility] [place] [facility] [address] [id number] [place] [address]- 6275 Apr, [facility] [place] [facility] [address] [id number] [place] [address]- 7287 Apr, [facility] [place] [facility] [address] [id number] [place] [address]- 9275 Mar, [facility] [place] [facility] [address] [id number] [place] [address] 31 Mar, 2014 [facility] [place] [facility] [address] [id number] [place] [address] 30 Mar, 2014 [facility] [place] [facility] [address] [id number] [place] [address] 30 Mar, 2014 [facility] [place] [facility] [address] [id number] [place] [address] 29 Mar, 2014 [facility] [place] [facility] [address] [id number] [place] [address] 29 Mar, 2014 [facility] [place] [facility] [address] [id number] [place] [address] Mar, [facility] [place] [facility] [address] [id number] [place] [address] Mar, [facility] [place] [facility] [address] [id number] [place] [address] 15 Mar, 2014 [facility] [place] [facility] [address] [id number] [place] [address] 15 Mar, 2014 [facility] [place] [facility] [address] [id number] [place] [address] 15 Mar, 2014 [facility] [place] [facility] [address] [id number] [place] [address] 15 Mar, 2014 [facility] [place] [facility] [address] [id number] [place] [address] 15 Mar, 2014 [facility] [place] [facility] [address] [id number] [place] [address]26 15 Mar, 2014 [facility] [place] [facility] [address] [id number] [place] [address] 08 Mar, 2014 [facility] [place] [facility] [address] [id number] [place] [address] 08 Mar, 2014 [facility] [place] [facility] [address] [id number] [place] [address] 03 Mar, 2014 [facility] [place] [facility] [address] [id number] [place] [address] Mar, [facility] [place] [facility] [address] [id number] [place] [address] Mar, [facility] [place] [facility] [address] [id number] [place] [address] Mar, [facility] [place] [facility] [address] [id number] [place] [address] Feb, [facility] [place] [facility] [address] [id number] [place] [address] Feb, [facility] [place] [facility] [address] [id number] [place] [address] Feb, [facility] [place] [facility] [address] [id number] [place] [address] Feb, [facility] [place] [facility] [address] [id number] [place] [address] Feb, [facility] [place] [facility] [address] [id number] [place] [address] Feb, [facility] [place] [facility] [address] [id number] [place] [address] Feb, [facility] [place] [facility] [address] [facility] [id number] [place] [address] Feb, [facility] [place] [facility] [address] [id number] [place] [address] Feb, [facility] [place] [facility] [address] [id number] [place] [address] Feb, [facility] [place] [facility] [address] [id number] [place] [address] Feb, [facility] [place] [facility] [address] [id number] [place] [address] Feb, [facility] [place] [facility] [address] [id number] [place] [address] Feb, [facility] [place] [facility] [address] [id number] [place] [address] Feb, [facility] [place] [facility] [address] [id number] [id number] [address] Feb, [facility] [place] [facility] [address] [id number] [place] [address] Feb, [facility] [place] [facility] [address] [id number] [place] [address] 8658 Feb, [facility] [place] [facility] [address] [id number] [place] [address] 4747 Jan, [facility] [place] [facility] [address] [id number] [place] [address] 9296 Jan, [facility] [place] [facility] [address] [id number] [place] [address] 3432 Jan, [facility] [place] [facility] [address] [id number], [place] [address] 4[address] Jan, [facility] [place] [facility] [address] [id number] [place] [address] 5034 Jan, [facility] [place] [facility] [address] [id number], [place] [address] 89[address] Jan, [facility] [place] [facility] [address] [id number] [address]- 2746 Jan, [facility] [place] [facility] [address] [id number], [place] [address] 3689 Jan, [facility] [place] [facility] [address] [id number], [place] [address]- 74[address] Jan, [facility] [place] [facility] [address] [id number] [address] Jan, [facility] [place] [facility] [address] [id number], [place] [address] 5660 Jan, [facility] [place] [facility] [address] [id number], [place] [address]- 0031 Dec, [facility] [place] [facility] [address] [id number] [place] [address]- 5296 Dec, [facility] [place] [facility] [address] [id number] [place] [address] 3220 Nov, [facility] [place] [facility] [address] [id number] [place] [address]- 1074 Nov, [facility] [place] [facility] [address] [id number] [place] [address]- 3322 Nov, [facility] [place] [facility] [address] [id number] [place] [address]- 0064 Nov, [facility] [place] [facility] [address] [id number] [place] [address]- 5128 Nov, [facility] [place] [facility] [address] [id number] [place] [address]- 6755 Nov, [facility] [place] [facility] [address] [id number] [place] [address]- 1660 Nov, [facility] [place] [facility] [address] [id number] [place] [address]- 6706 Oct, [facility] [place] [facility] [address] [id number] [place] [address] Oct, [facility] [place] [facility] [address] [id number] [place] [address]- 3502 Oct, [facility] [place] [facility] [address] [id number] [place] [address]- 8930 Oct, [facility] [place] [facility] [address] [id number] [place] [address]- 5970 Sep, [facility] [place] [facility] [address] [id number] [place] [address]- 0236 Sep, [facility] [place] [facility] [address] [id number] [place] [address]- 1518 Sep, [facility] [place] [facility] [address] [id number] [place] [address]- 2333 Sep, [facility] [place] [facility] [address] [id number] [place] [address]- 2615 Sep, [facility] [place] [facility] [address] [id number] [place] [address]- 7869 Sep, [facility] [place] [facility] [address] [id number] [place] [address]- 0405 Sep, [facility] [place] [facility] [address] [id number] [place] [address]- 4624 Sep, [facility] [place] [facility] [address] [id number] [place] [address]- 2100 Sep, [facility] [place] [facility] [address] [id number] [place] [address]- 7971 Sep, [facility] [place] [facility] [address] [id number] [place] [address]- 3841 Sep, [facility] [place] [facility] [address] [id number] [place] [address]- 5661 Sep, [facility] [place] [facility] [address] [id number] [place] [address]- 8191 Sep, [facility] [place] [facility] [address] [id number] [place] [address]- 6165 Sep, [facility] [place] [facility] [address] [id number] [place] [address] 1101 August, [facility] [place] [facility] [address] [id number] [place] [address] 4251 August, [facility] [place] [facility] [address] [id number] [place] [address]- 7393 August, [facility] [place] [facility] [address] [id number] [place] [address]- 0924 August, [facility] [place] [facility] [address] [id number] [place] [address]- 4835 August, [facility] [address] [id number] [place] [address]- 8219 August, [facility] [place] [facility] [address] [id number] [place] [address]- 8384 August, [facility] [place] [facility] [address] [id number] [place] [address]- 7811 August, [facility] [place] [facility] [address] [id number] [place] [address]- 0601 August, [facility] [place] [facility] [address] [id number] [place] [address]- 6771 August, [facility] [place] [facility] [address] [id number] [place] [address]- 5151 August, [facility] [place] [facility] [address] [id number] [place] [address]- 3036 August, [facility] [place] [facility] [address] [id number] [place] [address]- 6363 August, [facility] [place] [facility] [address] [id number] [place] [address]- 3457 August, [facility] [place] [facility] [address] [id number] [place] [address]- 0942 August, [facility] [place] [facility] [address] [id number] [place] [address]- 4912 August, [facility] [place] [facility] [address] [id number] [place] [address]- 7111 August, [facility] [place] [facility] [address] [id number] [place] [address]- 8318 August, [facility] [place] [facility] [address] [id number] [place] [address]- 5068 August, [facility] [place] [facility] [address] [id number] [place] [address]- 1180 Jul, [facility] [place] [facility] [address] [id number] [place] [address]- 2655 Jul, [facility] [place] [facility] [address] [id number] [place] [address]- 7504 Jul, [facility] [place] [facility] [address] [id number] [place] [address]- 4838 Jul, [facility] [place] [facility] [address] [id number] [place] [address]- 3805 Jun, [facility] [place] [facility] [address] [id number] [place] [address]- 5026 Jun, [facility] [place] [facility] [address] [id number] [place] [address]- 6476 Jun, [facility] [place] [facility] [address] [id number] [place] [address]- 1701 Jun, [facility] [place] [facility] [address] [id number] [place] [address]- 8974 Jun, [facility] [place] [facility] [address] [id number] [place] [address]- 2928 Jun, [facility] [place] [facility] [address] [id number] [place] [address]- 3534 Jun, [facility] [place] [facility] [address] [id number] [place] [address]- 0581 Jun, [facility] [place] [facility] [address] [id number] [place] [address]- 6745 Jun, [facility] [place] [facility] [address] [id number] [place] [address]- 2891 Jun, [facility] [place] [facility] [address] [id number] [place] [address]- 8745 May, [facility] [place] [facility] [address] [id number] [place] [address]- 9104 May, [facility] [place] [facility] [address] [id number] [place] [address]- 4448 May, [facility] [place] [facility] [address] [id number] [place] [address]- 8904 May, [facility] [place] [facility] [address] [id number] [place] [address]- 7856 May, [facility] [place] [facility] [address] [id number] [place] [address]- 4302 May, [facility] [place] [facility] [address] [id number] [place] [address]- 9968 May, [facility] [place] [facility] [address] [id number] [place] [address]- 9786 May, [facility] [place] [facility] [address] [id number] [place] [address]- 6522 May, [facility] [place] [facility] [address] [facility] [id number] [place] [address]- 0780 May, [facility] [place] [facility] [address] [id number] [place] [address]- 8872 May, [facility] [place] [facility] [address] [facility] [id number] [place] [address]- 9428 17 May, 2013 [facility] [place] [facility] [address] [facility] [id number] [place] [address]- 9391 May, [facility] [place] [facility] [address] [facility] [id number] [place] [address]- 9966 May, [facility] [place] [facility] [address] [facility] [id number] [place] [address]- 6016 10 May, 2013 [facility] [place] [facility] [address] [facility] [id number] [place] [address]- 6110 07 May, 2013 [facility] [place] [facility] [address] [facility] [id number] [place] [address]- 8613 07 May, 2013 [facility] [place] [facility] [address] [facility] [id number] [place] [address]- 6757 Apr, [facility] [place] [facility] [address] [id number] [place] [address]- 4636 15 Apr, 2013 [facility] [place] [facility] [address] [id number] [place] [address]- 6523 Apr, [facility] [place] [facility] [address] [id number] [place] [address]- 2546 Apr, [facility] [place] [facility] [address] [id number] [place] [address]- 7017 Apr, [facility] [place] [facility] [address] [id number] [place] [address]- 8126 Apr, [facility] [place] [facility] [address] [id number] [place] [address]- 4020 Apr, [facility] [place] [facility] [address] [id number] [place] [address]- 5048 Mar, [facility] [place] [facility] [address] [id number] [place] [address]- 5054 Mar, [facility] [place] [facility] [address] [id number] [place] [address]- 8569 Mar, [facility] [place] [facility] [address] [id number] [place] [address]- 3472 Mar, [facility] [place] [facility] [address] [id number] [place] [address]- 7509 Mar, [facility] [place] [facility] [address] [id number] [place] [address]- 3526 Mar, [facility] [place] [facility] [address] [id number] [place] [address]- 4906 Mar, [facility] [place] [facility] [address] [id number] [place] [address]- 6106 Mar, [facility] [place] [facility] [address] [id number] [place] [address]- 1176 Mar, [facility] [place] [facility] [address] [id number] [place] [address]- 1461 Mar, [facility] [place] [facility] [address] [id number] [place] [address]- 7241 Mar, [facility] [place] [facility] [address] [id number] [place] [address]- 7648 Feb, [facility] [place] [facility] [address] [id number] [place] [address]- 0002 Feb, [facility] [place] [facility] [address] [id number] [place] [address]- 8255 Feb, [facility] [place] [facility] [address] [id number] [place] [address]- 0889 Feb, [facility] [place] [facility] [address] [id number] [place] [address]- 7382 Feb, [facility] [place] [facility] [address] [id number] [place] [address]- 0494 Feb, [facility] [place] [facility] [address] [id number], [place] [address]- 1852 15 Feb, 2013 [facility] [place] [facility] [address] [id number] [place] [address]- 5343 14 Feb, 2013 [facility] [place] [facility] [address] [id number], [place] [address]- 7221 14 Feb, 2013 [facility] [place] [facility] [address] [id number], [place] [address]- 3578 13 Feb, 2013 [facility] [place] [facility] [address] [id number], [place] [address]- 6572 13 Feb, 2013 [facility] [place] [facility] [address] [id number], [place] [address]- 7017 12 Feb, 2013 [facility] [place] [facility] [address] [id number], [place] [address]- 8017 12 Feb, 2013 [facility] [place] [facility] [address] [id number], [place] [address]- 1693 11 Feb, 2013 [facility] [place] [facility] [address] [id number] [place] [address]- 6876 05 Feb, 2013 [facility] [place] [facility] [address] [id number] [place] [address]- 3865 05 Feb, 2013 [facility] [place] [facility] [address] [id number] [place] [address]- 3284 28 Jan, 2013 [facility] [place] [facility] [address] [id number] [place] [address]- 1102 Jan, [facility] [place] [facility] [address] [id number] [place] [address]- 9420 Jan, [facility] [place] [facility] [address] [id number] [place] [address]- 5707 Jan, [facility] [place] [facility] [address] [id number] [place] [address]- 0688 Jan, [facility] [place] [facility] [address] [id number] [place] [address]- 0829 Jan, [facility] [place] [facility] [address] [id number] [place] [address]- 0552 Jan, [facility] [place] [facility] [address] [id number] [place] [address]- 7185 10 Jan, 2013 [facility] [place] [facility] [address] [id number] [place] [address]- 4533 10 Jan, 2013 [facility] [place] [facility] [address] [id number] [place] [address]- 6136 27 Dec, 2012 [facility] [place] [facility] [address] [id number] [place] [address]- 2540 20 Sep, 2012 [facility] [place] [facility] [address] [id number] [place] [address] 2544 19 Sep, 2012 [facility] [place] [facility] [address] [id number] [place] [address]- 2542 10 Dec, 2012 [facility] [place] [facility] [address] [id number] [place] [address]- 2545 Dec, [facility] [place] [facility] [address] [id number] [place] [address]- 3372 Dec, [facility] [place] [facility] [address] [id number] [place] [address]- 2987 Nov, [facility] [place] [facility] [address] [id number] [place] [address]- 2661 Nov, [facility] [place] [facility] [address] [id number] [place] [address]- 9312 Nov, [facility] [place] [facility] [address] [id number] [place] [address]- 2321 Nov, [facility] [place] [facility] [address] [id number] [place] [address]- 9685 Nov, [facility] [place] [facility] [address] [id number] [place] [address]- 5494 Nov, [facility] [place] [facility] [address] [id number] [place] [address]- 2582 Nov, [facility] [place] [facility] [address] [id number] [place] [address]- 8588 Nov, [facility] [place] [facility] [address] [id number] [place] [address]- 1556 Nov, [facility] [place] [facility] [address] [id number] [place] [address]- 1494 Nov, [facility] [place] [facility] [address] [id number] [place] [address]- 8066 Oct, [facility] [place] [facility] [address] [id number] [place] [address]- 6339 Oct, [facility] [place] [facility] [address] [id number] [place] [address]- 3581 Oct, [facility] [place] [facility] [address] [id number] [place] [address]- 5760 Oct, [facility] [place] [facility] [address] [id number] [place] [address]- 2546 Oct, [facility] [place] [facility] [address] [id number] [place] [address]- 7824 Oct, [facility] [place] [facility] [address] [id number] [place]206 Oct, [facility] [place] [facility] [address] [id number] [place] [address]- 8223 Oct, [facility] [place] [facility] [address] [id number] [place] [address]- 6609 Sep, [facility] [place] [facility] [address] [id number] [place] [address]- 7957 Sep, [facility] [place] [facility] [address] [id number] [place] [address]- 3290 Sep, [facility] [place] [facility] [address] [id number] [place] [address]- 2813 Sep, [facility] [place] [facility] [address] [id number] [place] [address]- 6519 Sep, [facility] [place] [facility] [address] [id number] [place] [address]- 5887 Sep, [facility] [place] [facility] [address] [id number] [place] [address]- 8046 Sep, [facility] [place] [facility] [address] [id number] [place] [address]- 8785 Sep, [facility] [place] [facility] [address] [id number] [place] [address]- 8668 August, [facility] [place] [facility] [address] [id number] [place] [address]- 8933 August, [facility] [place] [facility] [address] [id number] [place] [address]- 9814 August, [facility] [place] [facility] [address] [id number] [place] [address]- 2009 August, [facility] [place] [facility] [address] [id number] [place] [address]- 4872 August, [facility] [address] [id number] [place] [address]- 2825 Jul, [facility] [address] [id number] [place] [address]- 0295 Jul, [facility] [address] [id number] [place] [address]- 3902 Jul, [facility] [address] [id number] [place] [address]- 4275 Jul, [facility] [address] [id number] [place] [address]- 1799 Jul, [facility] [address] [id number] [place] [address]- 2602 Jun, [facility] [address] [id number] [place] [address]- 3256 Jun, [facility] [address] [id number] [place] [address]- 2227 15 Jun, 2012 [facility] [address] [id number] [place] [address]- 9156 14 Jun, 2012 [facility] [address] [id number] [place] [address]- 0972 Jun, [facility] [address] [id number] [place] [address]- 1096 Jun, [facility] [address] [id number] [place] [address]- 1181 Jun, [facility] [address] [id number] [place] [address]- 6459 Jun, [facility] [address] [id number] [place] [address]- 2546 Jun, [facility] [address] [id number] [place] 7415 May, [facility] [address] [id number] [place] [address]- 5507 May, [facility] [address] [id number] [place] [address]- 2309 May, [facility] [address] [id number] [place] [address]- 6111 May, [facility] [address] [id number] [place] [address]- 3030 Apr, [facility] [address] [id number] [place] [address]- 9802 Apr, [facility] [address] [id number] [place] [address]- 5151 Apr, [facility] [address] [id number] [place] [address]- 8823 Apr, [facility] [address] [id number] [place] [address]- 5864 Apr, [facility] [address] [id number] [place] [address]- 0505 Apr, [facility] [address] [facility] [id number], [place] [address]- 3080 Apr, [facility] [address] [id number], [place] [address]- 2861 Mar, [facility] [address] [place] [id number] Mar, [facility] [address] [id number] [place] [address] Mar, [facility] [address] [id number] [place] [address] Mar, [facility] [address] [id number][place] [address] Mar, [facility] [address] [id number], [place] [address] Mar, [facility] [place] [facility] [address] [id number] [place] [address] Mar, [facility] [place] [facility] [address] [id number] [place] [address] Mar, [facility] [place] [facility] [address] [id number] [place] [address] Mar, [facility] [place] [facility] [address] [id number] [place] [address] Mar, [facility] [place] [facility] [address] [id number] [place] [address] Mar, [facility] [place] [facility] [address] [id number] [place] [address] Mar, [facility] [place] [facility] [address] [id number] [place] [address] Mar, [facility] [place] [facility] [address] [id number] [place] [address] Mar, [facility] [place] [facility] [address] [id number] [place] [address] Mar, [facility] [place] [facility] [address] [id number] [place] [address] Mar, [facility] [place] [facility] [address] [id number] [place] [address] Mar, [facility] [place] [facility] [address] [id number] [place] [address] Feb, [facility] [place] [facility] [address] [id number] [place] [address] Feb, [facility] [place] [facility] [address] [id number] [place] [address] Feb, [facility] [place] [facility] [address] [id number] [place] [address] Feb, [facility] [place] [facility] [address] [id number] [place] [address] Feb, [facility] [place] [facility] [address] [id number] [place] [address] Feb, [facility] [place] [facility] [address] [id number] [place] [address] Feb, [facility] [place] [facility] [address] [id number] [place] [address] Feb, [facility] [place] [facility] [address] [id number] [place] [address] Feb, [facility] [place] [facility] [address] [id number] [place] [address] Feb, [facility] [place] [facility] [address] [id number] [place] [address] Feb, [facility] [place] [facility] [address] [id number] [place] [address] Feb, [facility] [place] [facility] [address] [id number] [place] [address] Feb, [facility] [place] [facility] [address] [id number] [place] [address] Feb, [facility] [place] [facility] [address] [id number] [place] [address] Feb, [facility] [place] [facility] [address] [id number] [place] [address] Feb, [facility] [place] [facility] [address] [id number] [place] [address] Jan, [facility] [place] [facility] [address] [id number] [place] [address] Jan, [facility] [place] [facility] [address] [id number] [place] [address] Jan, [facility] [place] [facility] [address] [id number] [place] [address] Jan, [facility] [place] [facility] [address] [id number] [place] [address] Jan, [facility] [place] [facility] [address] [id number] [place] [address] Jan, [facility] [place] [facility] [address] [id number] [place] [address] Jan, [facility] [place] [facility] [address] [id number] [place] [address] Jan, [facility] [place] [facility] [address] [id number] [place] [address] Jan, [facility] [place] [facility] [address] [id number] [place] [address] Jan, [facility] [place] [facility] [address] [id number] [place] [address] Jan, [facility] [place] [facility] [address] [id number] [place] [address] Jan, [facility] [place] [facility] [address] [id number] [place] [address] Jan, [facility] [place] [facility] [address] [id number] [place] [address] Jan, [facility] [place] [facility] [address] [id number], [place] [address] Jan, [facility] [place] [facility] [address] [id number], [place] [address] Jan, [facility] [place] [facility] [address] [id number] [place] [address] Jan, [facility] [place] [facility] [address] [id number], [place] [address] Dec, [facility] [place] [facility] [address] [id number] [place] [address] Dec, [facility] [place] [facility] [address] [id number] [place] [address] 18 Dec, 2011 [facility] [place] [facility] [address] [id number] [place] [address] 18 Dec, 2011 [facility] [place] [facility] [address] [id number] [place] [address] 10 Dec, 2011 [facility] [place] [facility] [address] [id number] [place] [address] 10 Dec, 2011 [facility] [place] [facility] [address] [id number] [place] [address]46 10 Dec, 2011 [facility] [place] [facility] [address] [id number] [place] [address] 07 Dec, 2011 [facility] [place] [facility] [address] [id number] [place] [address]- [address] 30 Nov, 2011 [facility] [place] [facility] [address] [id number] [place] [address] Nov, [facility] [place] [facility] [address] [id number] [place] [address] Nov, [facility] [place] [facility] [address] [id number] [place] [address] Nov, [facility] [place] [facility] [address] [id number] [place] [address] Nov, [facility] [place] [facility] [address] [id number] [place] [address]- [address] 16 Nov, 2011 [facility] [place] [facility] [address] [id number] [place] [address] Oct, [facility] [place] [facility] [address] [id number] [place] [address] 2544 Oct, [facility] [place] [facility] [address] [id number] [place] [address] Oct, [facility] [place] [facility] [address] [id number] [place] [address] Oct, [facility] [place] [facility] [address] [id number] [place] [address] Oct, [facility] [place] [facility] [address] [id number] [place] [address] Oct, [facility] [place] [facility] [address] [id number] [place] [address] Oct, [facility] [place] [facility] [address] [id number] [place] [address] Sep, [facility] [place] [facility] [address] [id number] [place] [address] Sep, [facility] [place] [facility] [address] [id number] [place] [address] Sep, [facility] [place] [facility] [address] [id number] [place] [address] Sep, [facility] [place] [facility] [address] [id number] [place] [address] Sep, [facility] [place] [facility] [address] [id number] [place] [address] 15 Sep, 2011 [facility] [place] [facility] [address] [id number] [place] [address] 14 Sep, 2011 [facility] [place] [facility] [address] [id number] [place] [address] Sep, [facility] [place] [facility] [address] [id number] [place] [address] 05 Sep, 2011 [facility] [place] [facility] [address] [id number] [place] [address] 04 Sep, 2011 [facility] [place] [facility] [address] [id number] [place] [address] 18 Aug, 2011 [facility] [place] [facility] [address] [id number] [place] [address]26 16 Aug, 2011 [facility] [place] [facility] [address] [id number] [place] [address] August, [facility] [address] [id number] [place] [address] August, [facility] [place] [facility] [address] [id number] [place] [address] August, [facility] [place] [facility] [address] [id number] [place] [address] Jul, [facility] [place] [facility] [address] [id number] [place] [address] Jul, [facility] [place] [facility] [address] [id number] [place] [address] Jul, [facility] [place] [facility] [address] [id number] [place] [address] Jul, [facility] [place] [facility] [address] [id number] [place] [address] Jul, [facility] [place] [facility] [address] [id number] [place] [address] Jul, [facility] [place] [facility] [address] [id number] [place] [address] Jul, [facility] [place] [facility] [address] [id number] [place] [address] Jun, [facility] [place] [facility] [address] [id number] [place] [address] Jun, [facility] [place] [facility] [address] [id number][place] [address] Jun, [facility] [place] [facility] [address] [id number] [place] [address] Jun, [facility] [place] [facility] [address] [id number] [place] [address] Jun, [facility] [place] [facility] [address] [id number] [place] [address] May, [facility] [place] [facility] [address] [id number] [place] [address] May, [facility] [place] [facility] [address] [id number] [place] [address]16 May, [facility] [place] [facility] [address] [id number] [place] [address] May, [facility] [place] [facility] [address] [id number] [place] [address] May, [facility] [place] [facility] [address] [id number] [place] [address] May, [facility] [place] [facility] [address] [id number] [place] [address] Apr, [facility] [place] [facility] [address] [id number] [place] [address] Mar, [facility] [place] [facility] [address] [id number] [place] [address]27 Feb, [facility] [place] [facility] [address] [id number] [place] [address] Feb, [facility] [place] [facility] [address] [facility] [id number] [place] [address] Feb, [facility] [place] [facility] [address] [facility] [id number] [place] [address] Feb, [facility] [place] [facility] [address] [facility] [id number] [place] [address]199 Jan, [facility] [place] [facility] [address] [id number] [place] [address] Jan, [facility] [place] [facility] [address] [facility] [id number] [place] [address]- [address] Jan, [facility] [place] [facility] [address] [facility] [id number] [place] [address] Jan, [facility] [place] [facility] [address] [facility] [id number] [place] [address] 14 Jan, 2011 [facility] [place] [facility] [address] [id number] [place] [address] 19 Dec, 2010 [facility] [place] [facility] [address] [id number] [place] [address]- 1689 20 Oct, 2010 [facility] [place] [facility] [address] [id number] [place] [address]- 1488 13 Aug, 2010 [facility] [place] [facility] [address] [id number] [place] [address]690 29 Mar, 2010 [facility] [place] [facility] [address] [id number] [place] [address]259 27 Mar, 2010 [facility] [place] [facility] [address] [id number] [place] [address]- 9271 16 Mar, 2010 [facility] [place] [facility] [address] [id number] [place] [address] 1837 15 Mar, 2010 [facility] [place] [facility] [address] [id number] [place] [address]457 15 Mar, 2010 [facility] [place] [facility] [address] [id number] [place] [address]369 08 Mar, 2010 [facility] [place] [facility] [address] [id number] [place] [address] 03 Mar, 2010 [facility] [place] [facility] [address] [id number], [place] [address] 24 Feb, 2010 [facility] [place] [facility] [address] [id number], [place] [address] 24 Feb, 2010 [facility] [place] [facility] [address] [id number] [place] [address] 8891 15 Feb, 2010 [facility] [place] [facility] [address] [id number], [place] [address] 19 Jan, 2010 [facility] [place] [facility] [address] [id number] [place] [address]118 18 Jan, 2010 [facility] [place] [facility] [address] [id number] [place] [address] 6269 18 Jan, 2010 [facility] [place] [facility] [address] [id number] [place] [address] Nov, [facility] [place] [facility] [address] [id number] [place] [address] 9717 Sep, [facility] [place] [facility] [address] [id number] [place] [address] 64[address] August, [facility] [place] [facility] [address] [id number] [place] [address]- 8437 30 Mar, 2009 [facility] [place] [facility] [address] [id number] [place] [address]- 2574 Mar, [facility] [place] [facility] [address] [id number] [place] [address] 8644 17 Feb, 2009 [facility] [place] [facility] [address] [id number] [place] [address]- 5870 10 Feb, 2009 [facility] [place] [facility] [address] [id number] [place] [address]- 8433 10 Feb, 2009 [facility] [place] [facility] [address] [id number] [place] [address]- 3775 10 Feb, 2009 [facility] [place] [facility] [address] [facility] [id number] [place] [address]- 6415 06 Feb, 2009 [facility] [place] [facility] [address] [id number] [place] [address]- 9013 27 Jan, 2009 [facility] [place] [facility] [address] [id number], [place] [address] Jan, [facility] [place] [facility] [address] [id number] [place] [address]- 1202 20 Jan, 2009 [facility] [place] [facility] [address] [id number] [place] [address]- 6175 Jan, [facility] [place] [facility] [address] [id number], [place] [address] Nov, [facility] [address] [facility] [id number][place] [address] Sep, [facility] [address] [facility] [id number], [place] [address] 56[address] August, [facility] [address] [facility] [id number], [place] [address] 62[address] Jul, [facility] [address] [facility] [id number], [place] [address]- [address] May, IMMUNIZATIONS No Known Immunizations SOCIAL HISTORY Never Assessed REASON FOR VISIT Voucher rx PLAN OF CARE VITAL SIGNS MEDICATIONS Medication [...] Surgery 07/16/17 Hospitalization History [facility] [place]- left hand/wrist swelling 10/09/2017
--- OUTSIDE RECORDS SUMMARY | 2018-01-01 12:49 | XMS REPORT ---
Author Author PATRICK GALAVIZ Organization [facility] Address [address] [place] [address] Care Team Providers Care [employer] Pow[employer] Processor Name Role Phone PATRICK GALAVIZ Unavailable PROBLEMS Type Condition ICD9-CM Code BCH18-AP Code Onset Dates Condition Status SNOMED Code Problem History of common bile duct surgery Z98.89 Active 559917511 Problem Barretts esophagus K22.70 Active 940562699 Problem 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 Active 36396431 Problem Colon polyp K63.5 Active 25537751 Problem Bilateral low back pain without sciatica M54.5 Active 172666219 Problem Screening breast examination Z12.39 Active 454685474 Problem Postmenopausal Z78.0 Active 30383359 Problem Osteopenia M85.80 Active 962029849 Problem Cigarette nicotine dependence without complication F17.210 Active 28678126 Problem Type 2 diabetes mellitus with diabetic peripheral angiopathy without gangrene E11.51 Active 483700510 Problem Vascular dementia without behavioral disturbance F01.50 Active 56132586808174689 Problem Unspecified atherosclerosis of [place] arteries of extremities, unspecified extremity I70.209 Active 331283625189622 Problem Arthritis M19.90 Active 1911759 Problem Chronic atrial fibrillation I48.2 Active 449271888 Problem Chronic obstructive pulmonary disease with acute lower respiratory infection J44.0 Active 278844067 Problem Other chronic pancreatitis K86.1 Active 735072202 Problem Stress incontinence of urine N39.3 Active 63053400 Problem Controlled type 2 diabetes mellitus without complication, without long -term current use of insulin E11.9 Active 765151302 Problem Unspecified psychosis F29 Active 64389360 Problem Xeroderma Q80.9 Active 22610143 Problem COPD (chronic obstructive pulmonary disease) J44.9 Active 23993301 Problem Dementia without behavioral disturbance, unspecified dementia type F03.90 Active 53573457 Problem Gastroparesis K31.84 Active 992686728 Problem Type 2 diabetes mellitus with diabetic neuropathy, without long-term current use of insulin E11.40 Active 62834603 Problem Osteoporosis M81.0 Active 74887100 Problem Atherosclerosis of [place]bridge artery of both lower extremities with intermittent claudication I70.213 Active 568264370929938 Problem Hyperlipidemia E78.5 Active 51964368 Problem Diabetic polyneuropathy associated with type 2 diabetes mellitus E11.42 Active 05170877 Problem Essential tremor G25.0 Active 00715552 Problem Atherosclerotic heart disease of [place]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 I25.118 Active 1886466538772 Problem Generalized anxiety disorder F41.1 Active 924180847 Problem Gastroesophageal reflux disease, esophagitis presence not specified K21.9 Active 905571169 Problem Coronary artery disease involving stockbridge coronary artery of stockbridge heart with other form of angina pectoris I25.118 Active 8592037410196 Problem Postconcussion syndrome F07.81 Active 08129233 Problem Chronic pain syndrome G89.4 Active 122773364 Problem Migraine without aura and without status migrainosus, not intractable G43.009 Active 148537018 Problem Paroxysmal atrial fibrillation I48.0 Active 696608649 Problem Migraine without aura and with status migrainosus, not intractable G43.001 Active 127042208 Problem Cervicalgia M54.2 Active 3913771793576 Problem Acute exacerbation of chronic obstructive pulmonary disease (COPD) J44.1 Active 179056077 Problem Major depressive disorder, recurrent episode, moderate F33.1 Active 568544508 Problem Crohn''s disease without complication, unspecified gastrointestinal tract location K50.90 Active 33589915 Problem Chronic fatigue R53.82 Active 45653844 Problem Bipolar affective disorder, currently depressed, moderate F31.32 Active 533353664 ALLERGIES No Information ENCOUNTERS Encounter Location Date Diagnosis [facility] [address] [facility] [id number] [address] Nov, [facility] [id number] [address] Nov, [facility] [id number] [address] Oct, [facility] [address] [facility] [id number] [place] [address] Oct, [place] [address] [address] Oct, Edema of both legs R60.0 [facility] [id number] [address] Oct, [facility] [address] [address] Sep, [facility] [id number] [place] [address] 67062- 8935 Sep, [facility] [id number] [place] [address] 98629- 1669 Sep, [place] [id number] [place] [address] 78852- 5632 Sep, Encounter for well woman exam with routine gynecological exam Z01.419 ; Screening for STDs (sexually transmitted diseases) Z11.3 ; Screening breast examination Z12.31 and Overweight (BMI 25.0-29.9) E66.3 [place] [address] [address] 6[address] Sep, [place] [id number] [address] 2217 Sep, [place] [address] [address]- 0234 Sep, [place] [address] [address] August, [place] [address] [address] 7[address] August, [facility] [id number] [address] August, Type 2 diabetes mellitus with diabetic neuropathy, without long-term current use of insulin E11.40 and Sprain of right ankle, unspecified ligament, initial encounter S93.401A [facility] [address] [address] 8[address] August, [facility] [id number] [place] [address] 66670- 4228 August, [facility] [id number] [place] [address] 34268- 4520 August, [facility] [id number] [place] [address] 89918- 9313 August, Gastroesophageal reflux disease, esophagitis presence not specified K21.9 [facility] [id number] [place] [address] 26816- 7557 August, [facility] [address] 14391- 1171 August, [facility] [id number] [place] [address] 01684- 3118 August, [facility] [address] 69392- 7258 August, Type 2 diabetes mellitus with diabetic neuropathy, without long-term current use of insulin E11.40 and Elevated liver enzymes R74.8 [facility] [id number] [place] [address] 80475- 6860 Jul, [facility] [id number] [place] [address] 94278- 2555 Jul, Cough R05 [facility] [id number] [place] [address] 02817- 0477 Jul, [facility] [id number] [place] [address] 33925- 7089 Jul, [facility] [id number] [place] [address] 93391- 4073 Jul, Bipolar affective disorder, currently depressed, moderate F31.32 ; Vascular dementia without behavioral disturbance F01.50 and Generalized anxiety disorder F41.1 [facility] [id number] [place] [address] 03065- 8958 Jul, [facility] [id number] [place] [address] 65361- 5099 Jul, Type 2 diabetes mellitus with diabetic neuropathy, without long-term current use of insulin E11.40 and Elevated liver enzymes R74.8 [facility] [id number] [place] [address] 87082- 0858 Jul, [facility] [address] 12113- 2947 Jul, [facility] [address] 75232- 4423 Jul, [place] [address] 82989- 8902 Jul, Post-menopausal Z78.0 [facility] [address] 81255- 2525 Jul, Stress incontinence of urine N39.3 [facility] [id number] [place] [address] 93515- 4595 Jul, [facility] [address] 22277- 6849 Jul, [facility] [address] 18462- 2479 Jul, Stress incontinence of urine N39.3 and Cough R05 [facility] [id number] [place] [address] 14699- 6660 Jul, [facility] [id number] [place] [address] 64095- 5385 Jul, [facility] [address] 90769- 6584 Jul, [facility] [address] 56097- 5743 Jul, Gastroesophageal reflux disease, esophagitis presence not specified K21.9 [facility] [address] 28323- 0907 Jun, Diabetic polyneuropathy associated with type 2 diabetes mellitus E11.42 [facility] [id number] [place] [address] 59839- 5536 Jun, Diabetic polyneuropathy associated with type 2 diabetes mellitus E11.42 ; Coronary artery disease involving stock[place] coronary artery of stock[place] heart with other form of angina pectoris I25.118 and Paroxysmal atrial fibrillation I48.0 [facility] [id number] [place] [address] 03204- 3457 Jun, [facility] [id number] [place] [address] 48799- 4462 Jun, [facility] [id number] [place] [address] 16713- 6052 Jun, Gastroenteritis K52.9 [facility] [id number] [place] [address] 13246- 5032 Jun, Gastroenteritis K52.9 [facility] [id number] [place] [address] 63638- 7962 Jun, [facility] [id number] [place] [address] 38372- 8986 Jun, [facility] [id number] [place] [address] 44901- 2200 Jun, Sprain of right ankle, unspecified ligament, initial encounter S93.401A ; Type 2 diabetes mellitus with diabetic neuropathy, without long-term current use of insulin E11.40 ; Atherosclerosis of [place] artery of both lower extremities with intermittent claudication I70.213 ; Atherosclerotic heart disease of [place]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 I25.118 ; Chronic atrial fibrillation I48.2 and Crohn''s disease without complication, unspecified gastrointestinal tract location K50.90 [facility] [id number] [place] [address] 97553 -9530 17 Jun, 2017 Chronic obstructive pulmonary disease with acute lower respiratory infection J44.0 and Cough R05 [facility] [id number] [place] [address] 57383- 4278 16 Jun, 2017 [facility] [address] [address]- 7024 Jun, Coughing R05 ; Unspecified atherosclerosis of stock[place] arteries of extremities, unspecified extremity I70.209 ; Type 2 diabetes mellitus with diabetic peripheral angiopathy without gangrene E11.51 ; Crohn''s disease without complication, unspecified gastrointestinal tract location K50.90 ; Other chronic pancreatitis K86.1 and Chronic atrial fibrillation I48.2 [facility] [address] [address] Jun, [facility] [id number] [place] [address] 95194- 8739 Jun, Bipolar affective disorder, currently depressed, moderate F31.32 ; Vascular dementia without behavioral disturbance F01.50 and Generalized anxiety disorder F41.1 [facility] [id number] [place] [address] 34044- 1272 May, Generalized anxiety disorder F41.1 [facility] [address] [address]- 1287 May, [facility] [id number] [place] [address] 85178- 3094 May, [facility] [address] [address]- 7802 May, Coughing R05 [facility] [address] [address]- 8725 May, [facility] [address] [address]- 1828 May, Bipolar affective disorder, currently depressed, moderate F31.32 ; Vascular dementia without behavioral disturbance F01.50 and Generalized anxiety disorder F41.1 [facility] [address] [address]- 3690 Apr, Generalized anxiety disorder F41.1 [facility] [id number] [place] [address] 09253- 8110 Apr, [facility] [id number] [place] [address] 35787- 6878 Apr, Vascular dementia without behavioral disturbance F01.50 ; Generalized anxiety disorder F41.1 and Bipolar affective disorder, currently depressed, moderate F31.32 [place] [id number] [place] [address] 47297- 4163 Apr, Generalized anxiety disorder F41.1 [facility] [id number] [place] [address] 83844 -0673 Apr, Cough R05 and Acute exacerbation of chronic obstructive pulmonary disease (COPD) J44.1 [place] [id number] [place] [address] 70952- 3691 Apr, [facility] [id number] [place] [address] 47578 -0428 Mar, Cough R05 and Cigarette nicotine dependence without complication F17.210 [place] [id number] [place] [address] 12637- 6758 Mar, [place] [id number] [place] [address] 66504- 7234 Feb, Generalized anxiety disorder F41.1 ; Major depressive disorder, recurrent episode, moderate F33.1 ; Vascular dementia without behavioral disturbance F01.50 and Unspecified psychosis F29 [facility] [id number] [place] [address] 93017- 9627 Feb, [facility] [id number] [place] [address] 16284- 0628 Feb, [place] [id number] [place] [address] 30870- 9245 Feb, Generalized anxiety disorder F41.1 [facility] [id number] [place] [address] 13243- 4091 Feb, Generalized anxiety disorder F41.1 [place] [id number] [place] [address] 17544- 1047 Feb, Dizziness R42 ; Chronic fatigue R53.82 ; Postconcussion syndrome F07.81 ; Fall, initial encounter W19.XXXA and Disorientation R41.0 [place] [address] 27896- 4818 Feb, Postconcussion syndrome F07.81 ; Injury of head, initial encounter S09.90XA ; Fall, initial encounter W19.XXXA ; Disorientation R41.0 and Acute cystitis with hematuria N30.01 [place] [address] 73485- 1950 Jan, Gastroesophageal reflux disease, esophagitis presence not specified K21.9 ; Post-menopausal Z78.0 and Migraine without aura and without status migrainosus, not intractable G43.009 [place] [address] 64816- 3727 Jan, [place] [address] 73378- 6807 Jan, Generalized anxiety disorder F41.1 ; Major depressive disorder, recurrent episode, moderate F33.1 ; Vascular dementia without behavioral disturbance F01.50 and Unspecified psychosis F29 [place] [address] 38557- 6556 Jan, Pneumonia of left lower lobe due to infectious organism J18.1 [place] [address] 30859- 6476 Jan, Migraine without aura and with status migrainosus, not intractable G43.001 [facility] [address] 94705 -1576 Jan, Migraine without aura and without status migrainosus, not intractable G43.009 [place] [address] 17785- 8552 Dec, Hematoma T14.8 [facility] [address] [address]- 1040 Dec, [facility] [id number] [place] [address] 97399 -1077 Nov, Fatigue, unspecified type R53.83 [facility] [id number] [place] [address] 25310- 9468 Nov, Scabies B86 and Coronary artery disease involving stock[place] coronary artery of stock[place] heart with other form of angina pectoris I25.118 [facility] [id number] [place] [address] 87977- 3115 Nov, [facility] [id number] [place] [address] 93150- 9209 Nov, [facility] [id number] [place] [address] 66450- 0088 Oct, [facility] [id number] [place] [address] 61107- 4094 Oct, Generalized anxiety disorder F41.1 and Major depressive disorder, recurrent episode, moderate F33.1 [facility] [id number] [place] [address] 06984- 5285 Oct, Cramp of both lower extremities R25.2 [facility] [id number] [place] [address] 44477- 6344 Oct, Leg cramps R25.2 [facility] [id number] [place] [address] 42065- 5768 Oct, Chronic pain syndrome G89.4 [facility] [id number] [place] [address] 61624- 1716 Oct, [facility] [id number] [place] [address] 62745- 4536 Oct, [facility] [id number] [place] [address] 56136- 7090 Oct, Routine gynecological examination Z01.419 and Screening for breast cancer Z12.31 [place] [id number] [place] [address] 46360- 3054 28 Sep, 2016 Diarrhea R19.7 [place] [id number] [place] [address] 16048- 7979 26 Sep, 2016 Back pain M54.9 [place] [id number] [place] [address] 43914- 8593 Sep, [place] [id number] [place] [address] 99520- 5652 Sep, [facility] [address] 21391 -4579 August, Xeroderma Q80.9 [place] [address] 98923- 7006 August, Dementia without behavioral disturbance, unspecified dementia type F03.90 [place] [id number] [place] [address] 62176- 3012 August, Chronic pain syndrome G89.4 [place] [address] 17521- 2101 August, [place] [id number] [place] [address] 09306- 2304 August, Hyperlipidemia E78.5 ; Other fatigue R53.83 and Other specified hypotension I95.89 [facility] [id number] [place] [address] 02730 -1238 August, Dysuria R30.0 ; Other fatigue R53.83 and Other specified hypotension I95.89 [place] [id number] [place] [address] 16942- 9437 August, [place] [id number] [place] [address] 39336- 8672 Jul, Pain in left knee M25.562 and Gastroenteritis K52.9 [place] [address] 53147- 4008 Jul, [facility] [address] 37646- 4252 Jul, Diarrhea R19.7 [facility] [address] 06781 -5852 Jul, Spider bite, accidental or unintentional, initial encounter T63.301A [place] [address] 71888- 1006 Jul, Primary osteoarthritis of right knee M17.11 and Arthritis M19.90 [place] [address] 94824- 2319 Jul, Generalized anxiety disorder F41.1 and Major depressive disorder, recurrent episode, moderate F33.1 [place] [address] 52607- 6742 Jul, Type 2 diabetes mellitus with diabetic polyneuropathy E11.42 and Temporal headache R51 [place] [address] 31041- 4480 Jul, Back pain M54.9 [place] [address] 11504- 1355 Jul, [place] [address] 82456- 3453 Jul, [place] [address] 78955- 0103 Jun, Nausea R11.0 [facility] [address] 95875 -8806 Jun, Acute suppurative otitis media of both ears without spontaneous rupture of tympanic membranes, recurrence not specified H66.003 and COPD exacerbation J44.1 [facility] [address] 22754- 4615 Jun, Generalized anxiety disorder F41.1 [facility] [id number] [place] [address] 82272- 2777 16 Jun, 2016 [facility] [address] 12850 -0851 Jun, [facility] [address] 33220 -6464 Jun, Shortness of breath R06.02 and COPD exacerbation J44.1 [facility] [address] 02046- 6622 10 Jun, 2016 Eczema, unspecified type L30.9 [place] [address] 41706- 7477 Jun, [place] [address] 15818- 0219 May, [place] [address] 23776- 2145 May, Muscle cramping R25.2 [place] [address] 00433- 5030 May, [place] [address] 32283- 7104 Apr, Diarrhea R19.7 [place] [id number] [place] [address] 93495- 8487 Apr, [place] [id number] [place] [address] 99071- 1113 Apr, Chronic pain syndrome G89.4 [place] [id number] [place] [address] 91608- 3723 Apr, Cramp of both lower extremities R25.2 and Vascular dementia without behavioral disturbance F01.50 [place] [id number] [place] [address] 96074- 9243 Apr, Type 2 diabetes mellitus with diabetic polyneuropathy E11.42 and Cigarette nicotine dependence without complication F17.210 [facility] [id number] [place] [address] 40741- 3045 Mar, Generalized anxiety disorder F41.1 [place] [address] 44560- 3885 Feb, Generalized anxiety disorder F41.1 and Major depressive disorder, recurrent episode, moderate F33.1 [place] [address] 87928- 9251 Feb, [facility] [id number] [place] [address] 89344 -9574 Feb, Dysuria R30.0 and Acute cystitis with hematuria N30.01 [place] [address] 21283- 5056 Jan, [place] [address] 26590- 8136 Jan, [place] [id number] [place] [address] 68896- 6188 Jan, [place] [address] 14464- 4750 Jan, [facility] [id number] [place] [address] 70510 -8496 Jan, Wasp sting, accidental or unintentional, initial encounter T63.461A [place] [address] 32158- 8635 Jan, Encounter for immunization Z23 [place] [id number] [place] [address] 59607- 1242 Jan, [place] [address] 82498- 4994 Jan, [place] [id number] [place] [address] 73634- 3645 Dec, Generalized anxiety disorder F41.1 and Major depressive disorder, recurrent episode, moderate F33.1 [facility] [address] [address]- 6728 21 Dec, 2015 Routine gynecological examination Z01.419 ; Postmenopausal Z78.0 ; Screening breast examination Z12.39 ; Osteopenia M85.80 and Breast cancer screening Z12.39 [facility] [address] [address]- 4821 20 Dec, 2015 [facility] [id number] [place] [address] 92845- 0286 19 Dec, 2015 [facility] [address] [address] 4617 16 Dec, 2015 [facility] [id number] [place] [address] 50647- 3071 16 Dec, 2015 [facility] [id number] [place] [address] 42777- 9577 14 Dec, 2015 [facility] [id number] [address] 2818 06 Dec, 2015 [facility] [id number] [place] [address] 50707- 2952 30 Nov, 2015 [facility] [id number] [address] Nov, Cough R05 ; Other viral agents as the cause of diseases classified elsewhere B97.89 and Acute upper respiratory infection, unspecified J06.9 [facility] [id number] [address] 8822 Nov, [facility] [id number] [address] 8702 Nov, [facility] [id number] [address] 6106 Nov, [facility] [id number] [address] 4598 Nov, [facility] [id number] [place] [address] 91135- 4838 Nov, [facility] [id number] [place] [address] 33566- 3617 Oct, [facility] [id number] [place] [address] 36688- 5421 Oct, [facility] [id number] [place] [address] 53239- 3582 Oct, [facility] [id number] [place] [address] 73532- 6926 Oct, Chronic pain syndrome G89.4 [facility] [id number] [place] [address] 70604- 3663 Sep, Generalized anxiety disorder F41.1 and Major depressive disorder, recurrent episode, moderate F33.1 [place] [facility] [id number] [place] [address] 08797- 0783 Sep, [facility] [id number] [place] [address] 11119- 3573 Sep, [facility] [id number] [place] [address] 05107- 5438 Sep, Generalized anxiety disorder F41.1 [facility] [id number] [place] [address] 19316- 5311 Sep, Cramp of both lower extremities R25.2 and Cervicalgia M54.2 [facility] [id number] [place] [address] 57729- 9201 Sep, Generalized anxiety disorder F41.1 [facility] [id number] [place] [address] 59355- 3015 Sep, [facility] [id number] [place] [address] 08714 -6258 August, Rash R21 ; Itching L29.9 and Allergic response, subsequent encounter T78.40XD [facility] [id number] [place] [address] 34491- 2103 August, Primary insomnia F51.01 [facility] [id number] [place] [address] 18886 -7100 August, Rash R21 ; Itching L29.9 and Allergic response, initial encounter T78.40XA [facility] [id number] [place] [address] 28256- 1765 August, [facility] [address] 12249- 1893 August, Cramp of both lower extremities R25.2 [place] [address] 76859- 7408 August, Back pain M54.9 [facility] [id number] [place] [address] 35101- 2128 August, [facility] [address] 11847- 1250 August, [facility] [id number] [place] [address] 67502 -1496 August, Cramp of both lower extremities R25.2 [facility] [id number] [place] [address] 83527- 4609 August, [facility] [id number] [place] [address] 66275- 6766 August, Syncope R55 ; Paroxysmal atrial fibrillation I48.0 ; Dementia without behavioral disturbance, unspecified dementia type F03.90 and Chronic pain syndrome G89.4 [facility] [id number] [place] [address] 37553- 5345 August, Type 2 diabetes mellitus with diabetic polyneuropathy E11.42 and Syncope R55 [facility] [id number] [place] [address] 64462- 1592 Jul, [facility] [address] 19964- 4962 Jul, [facility] [address] [facility] [id number] [address] 6808 Jul, [facility] [address] [facility] [id number] [address]- 2740 Jul, [facility] [address] [address]- 3051 Jul, [facility] [id number] [place] [address] 67658- 0495 Jul, UTI (urinary tract infection) N39.0 [facility] [id number] [place] [address] 55632- 6837 Jul, [facility] [id number] [place] [address] 05149- 3171 Jul, Major depressive disorder, recurrent episode, moderate F33.1 and Generalized anxiety disorder F41.1 [facility] [address] [address]- 6610 Jul, Generalized anxiety disorder F41.1 [facility] [id number] [place] [address] 00109- 3552 Jul, Diarrhea R19.7 [facility] [address] [address]- 2112 Jul, [facility] [address] [address]- 9326 Jun, [facility] [address] [address]- 3398 Jun, Eczema L30.9 [facility] [address] [address]- 7979 Jun, [facility] [address] [address]- 3015 17 Jun, 2015 COPD (chronic obstructive pulmonary disease) J44.9 [facility] [address] [address]- 4384 Jun, [facility] [address] [address]- 9646 Jun, Major depressive disorder, recurrent episode, moderate F33.1 and Generalized anxiety disorder F41.1 [facility] [address] [address]- 2508 May, [facility] [address] [address]- 6092 May, UTI (urinary tract infection) N39.0 [facility] [address] [address]- 8456 May, [facility] [address] [address]- 5292 May, [facility] [address] [address]- 1731 May, [facility] [address] [address]- 0863 May, [facility] [address] [address]- 3015 Apr, Major depressive disorder, recurrent episode, moderate F33.1 and Generalized anxiety disorder F41.1 [facility] [address] [address]- 8344 Apr, COPD (chronic obstructive pulmonary disease) J44.9 [facility] [id number] [address]- 8531 Apr, [facility] [address] [address]- 6598 Apr, Atrial flutter I48.92 [facility] [id number] [address]- 4391 Apr, [facility] [address] [address]- 7509 Apr, [facility] [address] [address]- 1353 Mar, [facility] [id number] [place] [address] 10518- 9184 Mar, [facility] [id number] [place] [address] 94052- 8476 Mar, [facility] [id number] [place] [address] 71658- 8760 Mar, Hyperlipidemia E78.5 ; Type 2 diabetes mellitus with diabetic polyneuropathy E11.42 ; Major depressive disorder, recurrent episode, moderate F33.1 and Chronic pain syndrome G89.4 [facility] [id number] [place] [address] 54067- 9591 Mar, [facility] [id number] [place] [address] 27275- 6690 Mar, [facility] [id number] [place] [address] 76846- 3911 Mar, [facility] [id number] [place] [address] 36028- 3795 Mar, [facility] [id number] [place] [address] 82797- 2876 Feb, COPD (chronic obstructive pulmonary disease) J44.9 and Back pain M54.9 [facility] [id number] [place] [address] 76376- 3970 Feb, [facility] [id number] [place] [address] 94569- 6469 Feb, [facility] [id number] [place] [address] 88406- 7479 Feb, [facility] [id number] [place] [address] 43926- 6247 Feb, [facility] [id number] [place] [address] 64191- 4408 Feb, [facility] [address] [address]- 3038 Feb, [facility] [id number] [place] [address] 32935- 7202 Feb, [facility] [id number] [place] [address] 13392- 7196 Feb, [facility] [id number] [place] [address] 51170- 0198 Feb, Diabetes E11.9 ; Back pain M54.9 and COPD (chronic obstructive pulmonary disease) J44.9 [facility] [id number] [place] [address] 93437- 9356 Jan, [facility] [id number] [place] [address] 88481- 3653 Jan, Major depression, recurrent F33.9 and Generalized anxiety disorder F41.1 [facility] [id number] [place] [address] 33554- 6919 Jan, Chronic pain G89.29 [facility] [id number] [place] [address] 44698- 2470 Jan, [facility] [id number] [place] [address] 05874- 7666 Jan, [facility] [id number] [place] [address] 40466- 0983 Jan, [facility] [id number] [place] [address] 25272- 0657 Jan, [facility] [id number] [place] [address] 49837- 2523 Jan, Nicotine dependence F17.200 [facility] [id number] [place] [address] 53120- 5668 Jan, Nicotine dependence F17.200 and Back pain M54.9 [facility] [id number] [address]- 0092 Jan, [facility] [address] [address]- 0417 28 Dec, 2014 [facility] [id number] [place] [address] 44332- 8043 25 Dec, 2014 Anxiety, generalized 300.02 and Major depression, recurrent 296.30 [facility] [id number] [place] [address] 05549- 3244 24 Dec, 2014 [facility] [id number] [place] [address] 42097- 9833 21 Dec, 2014 [facility] [id number] [place] [address] 97752- 9751 17 Dec, 2014 [facility] [id number] [place] [address] 83938- 5826 15 Dec, 2014 [facility] [id number] [place] [address] 01090- 3196 14 Dec, 2014 [facility] [id number] [place] [address] 71738- 5544 11 Dec, 2014 [facility] [address] [address]- 6240 10 Dec, 2014 [facility] [address] [address]- 0367 08 Dec, 2014 Skin tear 879.8 [facility] [address] [address]- 5822 08 Dec, 2014 Routine gynecological examination V72.31 ; Breast cancer screening V76.10 and Family history of breast cancer in first degree relative V16.3 [facility] [address] [address]- 0960 03 Dec, 2014 [facility] [address] [address]- 9494 02 Dec, 2014 [facility] [id number] [place] [address] 13875- 5841 Nov, [facility] [id number] [place] [address] 95196- 8324 Nov, [facility] [id number] [place] [address] 48572- 7161 Nov, Poor balance 781.99 and Vascular dementia, uncomplicated 290.40 [facility] [id number] [place] [address] 82364- 1064 Nov, [facility] [id number] [place] [address] 60418- 1306 Nov, Major depression, recurrent 296.30 and Anxiety, generalized 300.02 [facility] [id number] [place] [address] 63776- 3615 Nov, [facility] [id number] [place] [address] 66388- 4077 Nov, [facility] [id number] [place] [address] 50245- 0548 Nov, [facility] [id number] [place] [address] 50938- 1079 Nov, [facility] [id number] [place] [address] 20994- 6625 Nov, Vascular dementia, uncomplicated 290.40 and Lumbago 724.2 [facility] [id number] [place] [address] 29392- 9311 Nov, [facility] [id number] [place] [address] 66770- 0081 Nov, [facility] [id number] [place] [address] 91051- 8153 Nov, [facility] [id number] [place] [address] 42943- 7196 Oct, [facility] [id number] [place] [address] 58578- 5131 Oct, [facility] [id number] [place] [address] 92178- 6640 Oct, [facility] [id number] [place] [address] 74114- 2979 Oct, COPD (chronic obstructive pulmonary disease) 496 and Hyperlipidemia 272.4 [facility] [id number] [place] [address] 52423- 0042 Oct, Major depression, recurrent 296.30 and Anxiety, generalized 300.02 [facility] [id number] [place] [address] 37255- 3899 Oct, [facility] [id number] [place] [address] 28015- 2326 Oct, [facility] [id number] [place] [address] 92680- 0207 Oct, [facility] [id number] [place] [address] 29712- 3111 Sep, Lumbago 724.2 and Anxiety state, unspecified 300.00 [facility] [id number] [place] [address] 99738- 8628 Sep, [facility] [id number] [place] [address] 69285- 2795 Sep, [facility] [id number] [place] [address] 46939- 4423 August, [facility] [id number] [place] [address] 51234- 9864 August, Major depression, recurrent 296.30 ; Anxiety, generalized 300.02 and No condition on [place] II V71.09 [facility] [id number] [place] [address] 01458- 6156 August, [facility] [id number] [place] [address] 75765- 4539 August, [facility] [place] [facility] [address] [id number] [place] [address]- 8929 29 Jul, 2014 [facility] [place] [facility] [address] [id number] [place] [address]- 5686 14 Jul, 2014 [facility] [place] [facility] [address] [id number] [place] [address]- 1916 13 Jul, 2014 [facility] [place] [facility] [address] [id number] [place] [address]- 3646 30 Jun, 2014 [facility] [place] [facility] [address] [id number] [place] [address]- 8850 30 Jun, 2014 [facility] [place] [facility] [address] [id number] [place] [address]- 8323 27 Jun, 2014 [facility] [place] [facility] [address] [id number] [place] [address]- 8653 27 Jun, 2014 [facility] [place] [facility] [address] [id number] [place] [address]- 8568 26 Jun, 2014 [facility] [place] [facility] [address] [id number] [place] [address]- 8437 23 Jun, 2014 [facility] [place] [facility] [address] [id number] [place] [address]- 2023 23 Jun, 2014 [facility] [place] [facility] [address] [id number] [place] [address]- 8553 17 Jun, 2014 [facility] [place] [facility] [address] [id number] [place] [address]- 5483 13 Jun, 2014 [facility] [place] [facility] [address] [id number] [place] [address]- 1096 13 Jun, 2014 [facility] [place] [facility] [address] [id number] [place] [address]- 2926 10 Jun, 2014 [facility] [place] [facility] [address] [id number] [place] [address]- 0536 10 Jun, 2014 [facility] [place] [facility] [address] [id number] [place] [address]- 4922 Jun, 2014 [facility] [place] [facility] [address] [id number] [place] [address]- 9278 Jun, 2014 [facility] [place] [facility] [address] [id number] [place] [address]- 8917 Jun, 2014 [facility] [place] [facility] [address] [id number] [place] [address]- 7988 Jun, 2014 [facility] [place] [facility] [address] [id number] [place] [address]- 4886 May, 2014 [facility] [place] [facility] [address] [id number] [place] [address]- 7078 May, 2014 [facility] [place] [facility] [address] [id number] [place] [address]- 6105 May, 2014 [facility] [place] [facility] [address] [facility] [id number] [place] [address]- 9572 May, 2014 [facility] [place] [facility] [address] [id number] [place] [address]- 3209 May, 2014 [facility] [place] [facility] [address] [id number] [place] [address]- 3878 May, 2014 [facility] [place] [facility] [address] [facility] [id number] [place] [address]- 1312 May, 2014 [facility] [place] [facility] [address] [facility] [id number] [place] [address]- 9217 May, 2014 [facility] [place] [facility] [address] [facility] [id number] [place] [address]- 3877 May, 2014 [facility] [place] [facility] [address] [id number] [place] [address]- 2282 May, 2014 [facility] [place] [facility] [address] [facility] [id number] [place] [address]- 9116 May, 2014 [facility] [place] [facility] [address] [facility] [id number] [place] [address]- 0956 06 Fe2014 [facility] [place] [facility] [address] [id number] [place] [address]- 2733 May, [facility] [place] [facility] [address] [id number] [place] [address]- 1513 May, [facility] [place] [facility] [address] [id number] [place] [address]- 4616 Apr, [facility] [place] [facility] [address] [id number] [place] [address] Apr, [facility] [place] [facility] [address] [id number] [place] [address] Apr, [facility] [place] [facility] [address] [id number] [place] [address] Apr, [facility] [place] [facility] [address] [id number] [place] [address] Apr, [facility] [place] [facility] [address] [id number] [place] [address] Apr, [facility] [place] [facility] [address] [id number] [place] [address] Apr, [facility] [place] [facility] [address] [id number] [place] [address] Apr, [facility] [place] [facility] [address] [id number] [place] [address] Apr, [facility] [place] [facility] [address] [id number] [place] [address] Apr, [facility] [place] [facility] [address] [id number] [place] [address] Apr, [facility] [place] [facility] [address] [id number] [place] [address] Apr, [facility] [place] [facility] [address] [id number] [place] [address] Mar, [facility] [place] [facility] [address] [id number] [place] [address] 31 Mar, 2014 [facility] [place] [facility] [address] [id number] [place] [address] 30 Mar, 2014 [facility] [place] [facility] [address] [id number] [place] [address] 30 Mar, 2014 [facility] [place] [facility] [address] [id number] [place] [address] 29 Mar, 2014 [facility] [place] [facility] [address] [id number] [place] [address] 29 Mar, 2014 [facility] [place] [facility] [address] [id number] [place] [address] Mar, [facility] [place] [facility] [address] [id number] [place] [address] Mar, [facility] [place] [facility] [address] [id number] [place] [address] 15 Mar, 2014 [facility] [place] [facility] [address] [id number] [place] [address] 15 Mar, 2014 [facility] [place] [facility] [address] [id number] [place] [address] 15 Mar, 2014 [facility] [place] [facility] [address] [id number] [place] [address] 15 Mar, 2014 [facility] [place] [facility] [address] [id number] [place] [address] 15 Mar, 2014 [facility] [place] [facility] [address] [id number] [place] [address] 15 Mar, 2014 [facility] [place] [facility] [address] [id number] [place] [address] 08 Mar, 2014 [facility] [place] [facility] [address] [id number] [place] [address] 08 Mar, 2014 [facility] [place] [facility] [address] [id number] [place] [address] 03 Mar, 2014 [facility] [place] [facility] [address] [id number] [place] [address] Mar, [facility] [place] [facility] [address] [id number] [place] [address] Mar, [facility] [place] [facility] [address] [id number] [place] [address] Mar, [facility] [place] [facility] [address] [id number] [place] [address] Feb, [facility] [place] [facility] [address] [id number] [place] [address] Feb, [facility] [place] [facility] [address] [id number] [place] [address] Feb, [facility] [place] [facility] [address] [id number] [place] [address] Feb, [facility] [place] [facility] [address] [id number] [place] [address] Feb, [facility] [place] [facility] [address] [id number] [place] [address] Feb, [facility] [place] [facility] [address] [id number] [place] [address] Feb, [facility] [place] [facility] [address] [id number] [place] [address] Feb, [facility] [place] [facility] [address] [id number] [place] [address] Feb, [facility] [place] [facility] [address] [id number] [place] [address] Feb, [facility] [place] [facility] [address] [id number] [place] [address] Feb, [facility] [facility] [address] [id number] [place] [address] Feb, [facility] [place] [facility] [address] [id number] [place] [address] 38[address] Feb, [facility] [place] [facility] [address] [id number] [place] [address] 6575 Feb, [facility] [place] [facility] [address] [id number] [place] [address]88 Feb, [facility] [place] [facility] [address] [id number] [place] [address] 7970 Feb, [facility] [place] [facility] [address] [id number] [place] [address] 2449 Feb, [facility] [place] [facility] [address] [id number] [place] [address] 1082 Jan, [facility] [place] [facility] [address] [id number] [place] [address] 7633 Jan, [facility] [place] [facility] [address] [id number] [place] [address] 7620 Jan, [facility] [place] [facility] [address] [id number] [place] [address] 4417 Jan, [facility] [place] [facility] [address] [id number] [place] [address] 3204 Jan, [facility] [place] [facility] [address] [id number] [place] [address] 3[address] Jan, [facility] [place] [facility] [address] [id number] [place] [address] 0141 Jan, [facility] [place] [facility] [address] [id number] [place] [address] 6[address] Jan, [facility] [place] [facility] [address] [id number] [place] [address]- 0235 Jan, [facility] [place] [facility] [address] [id number] [place] [address] Jan, [facility] [place] [facility] [address] [id number] [place] [address] 8361 Jan, [facility] [place] [facility] [address] [id number] [place] [address]- 2399 Dec, [facility] [place] [facility] [address] [id number] [place] [address] 4171 Dec, [facility] [place] [facility] [address] [id number] [place] [address] 2737 Nov, [facility] [place] [facility] [address] [id number] [place] [address] 0920 Nov, [facility] [place] [facility] [address] [id number] [place] [address]- 2312 Nov, [facility] [place] [facility] [address] [id number] [place] [address]- 3739 Nov, [facility] [place] [facility] [address] [id number] [place] [address]- 6794 Nov, [facility] [place] [facility] [address] [id number] [place] [address]- 0879 Nov, [facility] [place] [facility] [address] [id number] [place] [address]- 7893 Nov, [facility] [place] [facility] [address] [id number] [place] [address]- 9649 Oct, [facility] [place] [facility] [address] [id number] [place] [address] 3050 Oct, [facility] [place] [facility] [address] [id number] [place] [address]- 0894 Oct, [facility] [place] [facility] [address] [id number] [place] [address]- 7264 Oct, [facility] [place] [facility] [address] [id number] [place] [address]- 8839 Sep, [facility] [place] [facility] [address] [id number] [place] [address]- 0365 Sep, [facility] [place] [facility] [address] [id number] [place] [address]- 0223 Sep, [facility] [place] [facility] [address] [id number] [place] [address]- 8816 Sep, [facility] [place] [facility] [address] [id number] [place] [address]- 2270 Sep, [facility] [place] [facility] [address] [id number] [place] [address]- 1341 Sep, [facility] [place] [facility] [address] [id number] [place] [address]- 8891 Sep, [facility] [place] [facility] [address] [id number] [place] [address]- 2104 Sep, [facility] [place] [facility] [address] [id number] [place] [address]- 8027 Sep, [facility] [place] [facility] [address] [id number] [place] [address]- 4759 Sep, [facility] [place] [address] [id number] [place] [address]- 2015 Sep, [facility] [address] [id number] [place] [address]- 2757 Sep, [facility] [address] [id number] [place] [address] 8174 Sep, [facility] [address] [id number] [place] [address]- 8526 Sep, [facility] [address] [id number] [place] [address]- 1056 August, [facility] [address] [id number] [place] [address]- 9778 August, [facility] [address] [id number] [place] [address]- 9516 August, [facility] [address] [id number] [place] [address]- 7931 August, [facility] [address] [id number] [place] [address] 6300 August, [facility] [address] [id number] [place] [address]- 5202 August, [facility] [address] [id number] [place] [address]- 0622 August, [facility] [address] [id number] [place] [address]- 5132 August, [facility] [address] [id number] [place] [address]- 3022 August, [facility] [address] [id number] [place] [address]- 7124 August, [facility] [facility] [address] [id number] [place] [address]- 0041 August, [facility] [address] [id number] [place] [address]- 4647 August, [facility] [address] [id number] [place] [address]- 9801 August, [facility] [address] [id number] [place] [address]- 4456 August, [facility] [address] [id number] [place] [address] 2672 August, [facility] [address] [id number] [place] [address] 6637 August, [facility] [address] [id number] [place] [address]- 3941 August, [facility] [address] [id number] [place] [address] 5915 August, [facility] [address] [id number] [place] [address]- 2829 August, [facility] [address] [id number] [place] [address]- 8368 Jul, [facility] [address] [id number] [place] [address] 2921 Jul, [facility] [address] [id number] [place] [address]- 1146 Jul, [facility] [address] [id number] [place] [address]- 0496 Jul, [facility] [address] [id number] [place] [address]- 3667 Jun, [facility] [address] [id number] [place] [address]- 4934 Jun, [facility] [address] [id number] [place] [address]- 6249 Jun, [facility] [address] [id number] [place] [address]- 7080 Jun, [facility] [address] [id number] [place] [address]- 9929 Jun, [facility] [address] [id number] [place] [address]- 2915 Jun, [facility] [address] [id number] [place] [address]- 0834 Jun, [facility] [address] [facility] [id number] [place] [address]- 8288 Jun, [facility] [address] [id number] [place] [address]- 7125 Jun, [facility] [address] [id number] [place] [address]- 1788 Jun, [facility] [address] [id number] [place] [address]- 0824 May, [facility] [address] [id number] [place] [address]- 5770 May, [facility] [address] [id number] [place] [address]33 May, [facility] [address] [id number] [place] [address]- 5836 May, [facility] [address] [id number] [place] [address]- 9166 May, [facility] [address] [facility] [id number] [place] [address]- 3094 May, [facility] [address] [id number] [place] [address]- 0283 May, [facility] [address] [id number] [place] [address]- 9744 May, [facility] [address] [facility] [id number] [place] [address]- 7348 May, [facility] [address] [facility] [id number] [place] [address]- 2857 May, [facility] [address] [id number] [place] [address]- 9982 May, [facility] [address] [facility] [id number] [place] [address]- 3467 17 May, 2013 [facility] [address] [facility] [id number] [place] [address]- 9843 May, [facility] [address] [facility] [id number] [place] [address]- 9175 May, [facility] [address] [facility] [id number] [place] [address]- 9688 May, [facility] [address] [facility] [id number] [place] [address]- 1742 07 May, 2013 [facility] [address] [facility] [id number] [place] [address]- 4782 07 May, 2013 [facility] [address] [facility] [id number] [place] [address]- 8726 Apr, [facility] [address] [id number] [place] [address]- 4483 Apr, [facility] [address] [id number] [place] [address]- 7312 Apr, [facility] [address] [id number] [place] [address]- 2178 Apr, [facility] [address] [id number] [place] [address]- 4512 Apr, [facility] [address] [id number] [place] [address]- 5102 Apr, [facility] [address] [id number] [place] [address]- 8124 Apr, [facility] [address] [id number] [place] [address]- 7368 Mar, [facility] [address] [id number] [place] [address]- 7618 Mar, [facility] [address] [id number] [place] [address]- 7184 Mar, [facility] [address] [id number] [place] [address]- 5740 Mar, [facility] [address] [id number] [place] [address]- 5735 Mar, [facility] [address] [id number] [place] [address]- 1686 Mar, [facility] [address] [id number] [place] [address]- 8781 Mar, [facility] [address] [id number] [place] [address]- 2965 Mar, [facility] [address] [id number] [place] [address]- 1265 Mar, [facility] [address] [id number] [place] [address]- 0200 04 Mar, 2013 [facility] [address] [id number] [place] [address]- 9756 04 Mar, 2013 [facility] [address] [id number] [place] [address]- 1109 Feb, [facility] [address] [id number] [place] [address]- 4923 Feb, [facility] [address] [id number] [place] [address]- 0963 Feb, [facility] [address] [id number] [place] [address]- 9970 20 Feb, 2013 [facility] [address] [id number] [place] [address]- 1745 Feb, [facility] [address] [id number] [place] [address]- 5438 19 Feb, 2013 [facility] [address] [id number] [place] [address]- 6986 15 Feb, 2013 [facility] [address] [id number] [place] [address]- 1555 14 Feb, 2013 [facility] [address] [id number] [place] [address]- 2882 14 Feb, 2013 [facility] [address] [id number] [place] [address]- 4497 13 Feb, 2013 [facility] [address] [id number] [place] [address]- 5058 13 Feb, 2013 [facility] [address] [id number] [place] [address]- 2800 12 Feb, 2013 [facility] [address] [id number] [place] [address]- 2546 12 Feb, 2013 [facility] [address] [id number] [place] [address]- 1761 11 Feb, 2013 [facility] [address] [id number] [place] [address]- 6312 05 Feb, 2013 [facility] [address] [id number] [place] [address]- 6076 05 Feb, 2013 [facility] [address] [id number] [place] [address]- 6210 28 Jan, 2013 [facility] [facility] [address] [id number] [place] [address]- 3908 24 Jan, 2013 [facility] [facility] [address] [id number] [place] [address]- 6131 Jan, [facility] [facility] [address] [id number] [place] [address]- 4165 Jan, [facility] [facility] [address] [id number] [place] [address]- 1543 Jan, [facility] [facility] [address] [id number] [place] [address]- 2782 Jan, [facility] [address] [id number] [place] [address]- 8536 Jan, [facility] [place] [facility] [address] [id number] [place] [address]- 4454 10 Jan, 2013 [facility] [place] [facility] [address] [id number] [place] [address]- 9455 10 Jan, 2013 [facility] [place] [facility] [address] [id number] [place] [address]- 2545 27 Dec, 2012 [facility] [place] [facility] [address] [id number] [place] [address]- 2543 20 Sep, 2012 [facility] [place] [facility] [address] [id number] [place] [address]- 2545 19 Sep, 2012 [facility] [place] [facility] [address] [id number] [place] [address]- 2541 10 Dec, 2012 [facility] [place] [facility] [address] [id number] [place] [address]- 2253 Dec, [facility] [place] [facility] [address] [id number] [place] [address]- 4921 Dec, [facility] [place] [facility] [address] [id number] [place] [address]- 0707 Nov, [facility] [place] [facility] [address] [id number] [place] [address]- 2318 Nov, [facility] [place] [facility] [address] [id number] [place] [address]- 4529 Nov, [facility] [place] [facility] [address] [id number] [place] [address]- 7786 Nov, [facility] [place] [facility] [address] [id number] [place] [address]- 7902 Nov, [facility] [place] [facility] [address] [id number] [place] [address]- 0232 Nov, [facility] [place] [facility] [address] [id number] [place] [address]- 1423 Nov, [facility] [place] [facility] [address] [id number] [place] [address]- 7346 Nov, [facility] [place] [facility] [address] [id number] [place] [address]- 2114 Nov, [facility] [place] [facility] [address] [id number] [place] [address]- 7158 Nov, [facility] [place] [facility] [address] [id number] [place] [address]- 4325 Oct, [facility] [place] [facility] [address] [id number] [place] [address]- 4043 Oct, [facility] [place] [facility] [address] [id number] [place] [address]- 1815 Oct, [facility] [place] [facility] [address] [id number] [place] [address]- 7347 Oct, [facility] [place] [facility] [address] [id number] [place] [address]- 7050 Oct, [facility] [address] [id number] [place] [address]- 8450 Oct, [facility] [place] [facility] [address] [id number] [place] [address]- 2342 Oct, [facility] [place] [facility] [address] [id number] [place] [address]- 4865 Oct, [facility] [place] [facility] [address] [id number] [place] [address]- 9494 Sep, [facility] [place] [facility] [address] [id number] [place] [address]- 7021 Sep, [facility] [place] [facility] [address] [id number] [place] [address]- 4329 Sep, [facility] [place] [facility] [address] [id number] [place] [address]- 4657 Sep, [facility] [place] [facility] [address] [id number] [place] [address]- 6623 Sep, [facility] [place] [facility] [address] [id number] [place] [address]- 7647 Sep, [facility] [place] [facility] [address] [id number] [place] [address]- 6096 Sep, [facility] [place] [facility] [address] [id number] [place] [address]- 7473 Sep, [facility] [place] [facility] [address] [id number] [place] [address]- 7554 August, [facility] [place] [facility] [address] [id number] [place] [address]- 8955 August, [facility] [place] [facility] [address] [id number] [place] [address]- 5171 August, [facility] [place] [facility] [address] [id number] [place] [address]- 8095 August, [facility] [place] [facility] [address] [id number] [place] [address]- 6337 August, [facility] [address] [id number] [place] [address]- 2834 Jul, [facility] [address] [id number] [place] [address]- 5256 Jul, [facility] [address] [id number] [place] [address]- 1404 Jul, [facility] [address] [id number] [place] [address]- 2866 Jul, [facility] [address] [id number] [place] [address]- 2998 Jul, [facility] [address] [id number] [place] [address]- 2671 Jun, [facility] [address] [id number] [place] [address]- 9589 Jun, [facility] [address] [id number] [place] [address]- 4587 15 Jun, 2012 [facility] [address] [id number] [place] [address]- 8531 14 Jun, 2012 [facility] [address] [id number] [place] [address]- 6952 Jun, [facility] [address] [id number] [place] [address]- 1711 Jun, [facility] [address] [id number] [place] [address]- 7326 Jun, [facility] [place] [facility] [address] [id number] [place] [address]- 2726 Jun, [facility] [address] [id number] [place] [address]- 2546 Jun, [facility] [address] [id number] [place] [address]- 0478 May, [facility] [address] [id number] [place] [address] May, [facility] [address] [id number] [place] [address] May, [facility] [address] [facility] [id number] [place] [address] May, [facility] [address] [id number] [place] [address] Apr, [facility] [address] [id number] [place] [address] Apr, [facility] [address] [id number] [place] [address] Apr, [facility] [address] [id number] [place] [address] Apr, [facility] [address] [id number] [place] [address] Apr, [facility] [address] [id number] [place] [address] Apr, [facility] [address] [facility] [id number] [place] [address] Apr, [facility] [address] [id number] [place] [address] Mar, [facility] [place] [address] [place] [id number] Mar, [facility] [address] [id number] [place] [address] Mar, [facility] [address] [id number] [place] [address] Mar, [facility] [address] [facility] [id number] [place] [address] Mar, [facility] [address] [id number] [place] [address] Mar, [facility] [place] [facility] [address] [id number] [place] [address] Mar, [facility] [place] [facility] [address] [id number] [place] [address] Mar, [facility] [place] [facility] [address] [facility] [id number] [place] [address] Mar, [facility] [place] [facility] [address] [id number] [place] [address] Mar, [facility] [place] [facility] [address] [id number] [place] [address] Mar, [facility] [place] [facility] [address] [id number] [place] [address] Mar, [facility] [place] [facility] [address] [id number] [place] [address] Mar, [facility] [place] [facility] [address] [id number] [place] [address] Mar, [facility] [place] [facility] [address] [facility] [id number] [place] [address] Mar, [facility] [place] [facility] [address] [facility] [id number] [place] [address] Mar, [facility] [place] [facility] [address] [id number] [place] [address] Mar, [facility] [place] [facility] [address] [id number] [place] [address] Feb, [facility] [place] [facility] [address] [id number] [place] [address] Feb, [facility] [place] [facility] [address] [id number] [place] [address] Feb, [facility] [place] [facility] [address] [facility] [id number] [place] [address]78 Feb, [facility] [place] [facility] [address] [id number] [place] [address] Feb, [facility] [place] [facility] [address] [id number] [place] [address] Feb, [facility] [place] [facility] [address] [id number] [place] [address]14 Feb, [facility] [place] [facility] [address] [id number] [place] [address] Feb, [facility] [place] [facility] [address] [id number] [place] [address] Feb, [facility] [place] [facility] [address] [id number] [place] [address] Feb, [facility] [place] [facility] [address] [id number] [place] [address] Feb, [facility] [place] [facility] [address] [id number] [place] [address] Feb, [facility] [place] [facility] [address] [id number] [place] [address] Feb, [facility] [place] [facility] [address] [id number] [place] [address] Feb, [facility] [place] [facility] [address] [facility] [id number] [place] [address]15 Feb, [facility] [place] [facility] [address] [id number] [place] [address] Feb, [facility] [place] [facility] [address] [id number] [place] [address] Jan, [facility] [place] [facility] [address] [id number] [place] [address]- [address]26 Jan, [facility] [place] [facility] [address] [id number] [place] [address] Jan, [facility] [place] [facility] [address] [id number] [place] [address] Jan, [facility] [place] [facility] [address] [id number] [place] [address]- [address] Jan, [facility] [place] [facility] [address] [id number] [place] [address]- 3426 Jan, [facility] [place] [facility] [address] [id number] [place] [address]- 39[address] Jan, [facility] [place] [facility] [address] [id number] [place] [address]- 1768 Jan, [facility] [place] [facility] [address] [id number] [place] [address]- [address] Jan, [facility] [place] [facility] [address] [id number] [place] [address]- 1720 Jan, [facility] [place] [facility] [address] [id number] [place] [address] Jan, [facility] [place] [facility] [address] [id number] [place] [address] Jan, [facility] [place] [facility] [address] [id number] [place] [address] Jan, [facility] [place] [facility] [address] [id number] [place] [address] Jan, [facility] [place] [facility] [address] [id number] [place] [address]- 94[address] Jan, [facility] [place] [facility] [address] [id number] [place] [address] Jan, [facility] [place] [facility] [address] [id number] [place] [address]- [address]296 Jan, [facility] [place] [facility] [address] [id number] [place] [address]- [address]71 Dec, [facility] [place] [facility] [address] [id number] [place] [address]- [address] Dec, [facility] [place] [facility] [address] [id number] [place] [address]- [address] 18 Dec, 2011 [facility] [place] [facility] [address] [id number] [place] [address]46 18 Dec, 2011 [facility] [place] [facility] [address] [id number] [place] [address] 2546 10 Dec, 2011 [facility] [place] [facility] [address] [id number] [place] [address] 2546 10 Dec, 2011 [facility] [place] [facility] [address] [id number] [place] [address] 2546 10 Dec, 2011 [facility] [place] [facility] [address] [id number] [place] [address] 07 Dec, 2011 [facility] [place] [facility] [address] [id number] [place] [address] 2546 30 Nov, 2011 [facility] [place] [facility] [address] [id number] [place] [address] 25 Nov, 2011 [facility] [place] [facility] [address] [id number] [place] [address] 2540 24 Nov, 2011 [facility] [place] [facility] [address] [id number] [place] [address] Nov, [facility] [place] [facility] [address] [id number] [place] [address] Nov, [facility] [place] [facility] [address] [id number] [place] [address] 2546 16 Nov, 2011 [facility] [place] [facility] [address] [id number] [place] [address] 2546 Oct, [facility] [place] [facility] [address] [id number] [place] [address] 2546 Oct, [facility] [place] [facility] [address] [id number] [place] [address] Oct, [facility] [place] [facility] [address] [id number] [place] [address] Oct, [facility] [place] [facility] [address] [id number] [place] [address] Oct, [facility] [place] [facility] [address] [id number] [place] [address] Oct, [facility] [place] [facility] [address] [id number] [place] [address] Oct, [facility] [place] [facility] [address] [id number] [place] [address] Sep, [facility] [place] [facility] [address] [id number] [place] [address] Sep, [facility] [place] [facility] [address] [id number] [place] [address] Sep, [facility] [place] [facility] [address] [id number] [place] [address] Sep, [facility] [place] [facility] [address] [id number] [place] [address] Sep, [facility] [place] [facility] [address] [id number] [place] [address] 15 Sep, 2011 [facility] [place] [facility] [address] [id number] [place] [address] 14 Sep, 2011 [facility] [place] [facility] [address] [id number] [place] [address] Sep, [facility] [place] [facility] [address] [id number] [place] [address] 05 Sep, 2011 [facility] [place] [facility] [address] [id number] [place] [address] Sep, [facility] [place] [facility] [address] [id number] [place] [address] August, [facility] [place] [facility] [address] [id number] [place] [address] 7566 16 Aug, 2011 [facility] [place] [facility] [address] [id number] [place] [address] August, [facility] [address] [id number] [place] [address] August, [facility] [place] [facility] [address] [id number] [place] [address]267 August, [facility] [place] [facility] [address] [id number] [place] [address] 4568 Jul, [facility] [place] [facility] [address] [id number] [place] [address] Jul, [facility] [place] [facility] [address] [id number] [place] [address] 87[address] Jul, [facility] [place] [facility] [address] [id number] [place] [address] Jul, [facility] [place] [facility] [address] [id number] [place] [address] Jul, [facility] [place] [facility] [address] [id number] [place] [address] Jul, [facility] [place] [facility] [address] [id number] [place] [address] Jul, [facility] [place] [facility] [address] [id number] [place] [address] Jun, [facility] [place] [facility] [address] [id number] [place] [address] 94[address] Jun, [facility] [place] [facility] [address] [id number] [place] [address] Jun, [facility] [place] [facility] [address] [id number] [place] [address] 3541 Jun, [facility] [place] [facility] [address] [id number] [place] [address] Jun, [facility] [place] [facility] [address] [id number] [place] [address] 8732 May, [facility] [place] [facility] [address] [id number] [place] [address] May, [facility] [place] [facility] [address] [id number] [place] [address] 4914 May, [facility] [place] [facility] [address] [id number] [place] [address]76 May, [facility] [place] [facility] [address] [id number] [place] [address] May, [facility] [place] [facility] [address] [id number] [place] [address] May, [facility] [place] [facility] [address] [id number] [place] [address]487 Apr, [facility] [place] [facility] [address] [id number] [place] [address] 39[address] Mar, [facility] [place] [facility] [address] [id number] [place] [address]90 Feb, [facility] [place] [facility] [address] [id number] [place] [address] Feb, [facility] [place] [facility] [address] [facility] [id number] [place] [address] Feb, [facility] [place] [facility] [address] [facility] [id number] [place] [address] 5900 Feb, [facility] [place] [facility] [address] [facility] [id number] [place] [address] 56[address] Jan, [facility] [place] [facility] [address] [id number] [place] [address] 2548 Jan, [facility] [place] [facility] [address] [id number] [place] [address] 8544 Jan, [facility] [place] [facility] [address] [id number] [place] [address]- 1608 24 Jan, 2011 [facility] [place] [facility] [address] [id number] [place] [address]- 1669 14 Jan, 2011 [facility] [address] [id number] [place] [address] 7265 19 Dec, 2010 [facility] [place] [facility] [address] [id number] [place] [address] 4896 20 Oct, 2010 [facility] [place] [facility] [address] [id number] [place] [address] 9446 August, [facility] [place] [facility] [address] [id number] [place] [address] 1556 29 Mar, 2010 [facility] [place] [facility] [address] [id number] [place] [address]- 9479 27 Mar, 2010 [facility] [place] [facility] [address] [id number] [place] [address]- 5839 16 Mar, 2010 [facility] [place] [facility] [address] [id number] [place] [address]- 4125 15 Mar, 2010 [facility] [place] [facility] [address] [id number] [place] [address] 2922 15 Mar, 2010 [facility] [place] [facility] [address] [id number] [place] [address]- 3724 08 Mar, 2010 [facility] [place] [facility] [address] [id number] [place] [address]- 2209 03 Mar, 2010 [facility] [place] [facility] [address] [id number] [place] [address]385 24 Feb, 2010 [facility] [place] [facility] [address] [id number] [place] [address] 8040 24 Feb, 2010 [facility] [place] [facility] [address] [id number] [place] [address]- 9172 15 Feb, 2010 [facility] [place] [facility] [address] [id number] [place] [address]- 4198 19 Jan, 2010 [facility] [place] [facility] [address] [id number] [place] [address] 3138 18 Jan, 2010 [facility] [place] [facility] [address] [id number] [place] [address]- 6231 18 Jan, 2010 [facility] [place] [facility] [address] [id number] [place] [address]- 9159 Nov, [facility] [place] [facility] [address] [id number] [place] [address]- 7301 Sep, [facility] [place] [facility] [address] [id number] [place] [address]- 2629 August, [facility] [place] [facility] [address] [id number] [place] [address] 2543 Mar, [facility] [place] [facility] [address] [id number] [place] [address]- 6[address] Mar, [facility] [place] [facility] [address] [id number] [place] [address]- 0447 Feb, [facility] [place] [facility] [address] [id number] [place] [address]- 9764 Feb, [facility] [place] [facility] [address] [id number] [place] [address]- 4816 Feb, [facility] [place] [facility] [address] [id number] [place] [address]- 6610 Feb, [facility] [place] [facility] [address] [facility] [id number] [place] [address]- 8663 06 Feb, 2009 [facility] [place] [facility] [address] [id number] [place] [address]- 2542 27 Jan, 2009 [facility] [place] [facility] [address] [id number] [place] [address]- 2545 Jan, [facility] [place] [facility] [address] [id number] [place] [address] 2544 20 Jan, 2009 [facility] [place] [facility] [address] [id number] [place] [address]- 2548 Jan, [facility] [place] [facility] [address] [id number] [place] [address]- 9[address] Nov, [facility] [address] [facility] [id number] [place] [address]- [address] Sep, [facility] [address] [id number] [place] [address] 277[address] August, [facility] [address] [id number] [place] [address] 49[address] Jul, [facility] [address] [id number] [place] [address] 4021 May, IMMUNIZATIONS No Known Immunizations SOCIAL HISTORY Never Assessed REASON FOR VISIT Refill request PLAN OF CARE VITAL SIGNS MEDICATIONS Medication Instructions Dosage Frequency Start Date End Date Duration Status HydrOXYzine HCl 50 MG Orally three times a day as needed 1 tablet 30 days Active RESULTS No Results PROCEDURES [...] Knee Surgery 07/16/17 Hospitalization History [facility] [place]- left hand/wrist swelling 10/09/2017
[2018-01-01 12:50] LABS: ALANINE AMINOTRANSFERASE 20 U/L (0-55); ALBUMIN 4.1 GM/DL (3.2-4.5); ALKALINE PHOSPHATASE 98 U/L (40-136); BILIRUBIN,TOTAL 0.2 MG/DL (0.1-1.0); BUN/CREATININE RATIO 14; CALCIUM 9.6 MG/DL (8.5-10.1); CARBON DIOXIDE 18 MMOL/L (21-32); CHLORIDE 107 MMOL/L (98-107); GFR ESTIMATED > 60; GLUCOSE 130 MG/DL (70-105); POTASSIUM 4.2 MMOL/L (3.6-5.0); SODIUM 140 MMOL/L (135-145); TOTAL PROTEIN 6.7 GM/DL (6.4-8.2)
--- OUTSIDE RECORDS SUMMARY | 2018-01-01 12:50 | XMS REPORT ---
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 Active 90185454 Problem Colon polyp K63.5 Active 86297552 Problem Bilateral low back pain without sciatica M54.5 Active 425944051 Problem Screening breast examination Z12.39 Active 022508940 Problem Postmenopausal Z78.0 Active 25512014 Problem Osteopenia M85.80 Active 563847885 Problem Cigarette nicotine dependence without complication F17.210 Active 64836340 Problem Type 2 diabetes mellitus with diabetic peripheral angiopathy without gangrene E11.51 Active 297238671 Problem Vascular dementia without behavioral disturbance F01.50 Active 55261432418948295 Problem Unspecified atherosclerosis of [place] arteries of extremities, unspecified extremity I70.209 Active 236131895520780 Problem Arthritis M19.90 Active 8520471 Problem Chronic atrial fibrillation I48.2 Active 978815198 Problem Chronic obstructive pulmonary disease with acute lower respiratory infection J44.0 Active 082865676 Problem Other chronic pancreatitis K86.1 Active 020386141 Problem Stress incontinence of urine N39.3 Active 68634396 Problem Controlled type 2 diabetes mellitus without complication, without long -term current use of insulin E11.9 Active 909831083 Problem Unspecified psychosis F29 Active 31109062 Problem Xeroderma Q80.9 Active 98476643 Problem COPD (chronic obstructive pulmonary disease) J44.9 Active 36521147 Problem Dementia without behavioral disturbance, unspecified dementia type F03.90 Active 00797308 Problem Gastroparesis K31.84 Active 972451947 Problem Type 2 diabetes mellitus with diabetic neuropathy, without long-term current use of insulin E11.40 Active 68965334 Problem Osteoporosis M81.0 Active 00502053 Problem Atherosclerosis of [place] artery of both lower extremities with intermittent claudication I70.213 Active 184909281815334 Problem Hyperlipidemia E78.5 Active 42651090 Problem Diabetic polyneuropathy associated with type 2 diabetes mellitus E11.42 Active 54660667 Problem Essential tremor G25.0 Active 75252951 Problem Atherosclerotic heart disease of [place]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 I25.118 Active 3386867525370 Problem Generalized anxiety disorder F41.1 Active 376075228 Problem Gastroesophageal reflux disease, esophagitis presence not specified K21.9 Active 535237552 Problem Coronary artery disease involving [place] coronary artery of [place] heart with other form of angina pectoris I25.118 Active 7822455613425 Problem Postconcussion syndrome F07.81 Active 02521079 Problem Chronic pain syndrome G89.4 Active 245267259 Problem Migraine without aura and without status migrainosus, not intractable G43.009 Active 829171052 Problem Paroxysmal atrial fibrillation I48.0 Active 948179420 Problem Migraine without aura and with status migrainosus, not intractable G43.001 Active 052083392 Problem Cervicalgia M54.2 Active 3364193420526 Problem Acute exacerbation of chronic obstructive pulmonary disease (COPD) J44.1 Active 031808883 Problem Major depressive disorder, recurrent episode, moderate F33.1 Active 547466560 Problem Crohn''s disease without complication, unspecified gastrointestinal tract location K50.90 Active 78789922 Problem Chronic fatigue R53.82 Active 19011637 Problem Bipolar affective disorder, currently depressed, moderate F31.32 Active 572752674 ALLERGIES No Information ENCOUNTERS Encounter Location Date Diagnosis [facility] [address] [facility] [id number] [address] Nov, [facility] [id number] [address] Nov, [facility] [id number] [address] Oct, [facility] [address] [facility] [id number] [address] Oct, [place] [address] [address] Oct, Edema of both legs R60.0 [facility] [address] [id number] [address] Oct, [facility] [address] [address] 8161 Sep, [facility] [id number] [place] [address] 35534- 4285 Sep, [facility] [id number] [place] [address] 71902- 8871 Sep, [place] [id number] [place] [address] 01041- 6780 Sep, Encounter for well woman exam with routine gynecological exam Z01.419 ; Screening for STDs (sexually transmitted diseases) Z11.3 ; Screening breast examination Z12.31 and Overweight (BMI 25.0-29.9) E66.3 [place] [address] [address] Sep, [place] [id number] [address] 3892 Sep, [place] [address] [address] 6700 Sep, [place] [address] [address] 12[address] August, [place] [address] [address] 9[address] August, [facility] [id number] [address] August, Type 2 diabetes mellitus with diabetic neuropathy, without long-term current use of insulin E11.40 and Sprain of right ankle, unspecified ligament, initial encounter S93.401A [facility] [address] [address] August, [facility] [id number] [place] [address] 09608- 9618 August, [facility] [id number] [place] [address] 91734- 4230 August, [facility] [id number] [place] [address] 68335- 3228 August, Gastroesophageal reflux disease, esophagitis presence not specified K21.9 [facility] [id number] [place] [address] 04357- 6031 August, [facility] [address] 80014- 0761 August, [facility] [id number] [place] [address] 99914- 0538 August, [facility] [address] 58414- 4884 August, Type 2 diabetes mellitus with diabetic neuropathy, without long-term current use of insulin E11.40 and Elevated liver enzymes R74.8 [facility] [id number] [place] [address] 85690- 9115 Jul, [facility] [id number] [place] [address] 61315- 7629 Jul, Cough R05 [facility] [id number] [place] [address] 28933- 2348 Jul, [facility] [id number] [place] [address] 86653- 7852 Jul, [facility] [id number] [place] [address] 04158- 4501 Jul, Bipolar affective disorder, currently depressed, moderate F31.32 ; Vascular dementia without behavioral disturbance F01.50 and Generalized anxiety disorder F41.1 [facility] [id number] [place] [address] 90301- 8003 Jul, [facility] [id number] [place] [address] 69597- 2814 Jul, Type 2 diabetes mellitus with diabetic neuropathy, without long-term current use of insulin E11.40 and Elevated liver enzymes R74.8 [facility] [id number] [place] [address] 21848- 6611 Jul, [facility] [address] 38315- 2819 Jul, [facility] [address] 60785- 4320 Jul, [place] [address] 37505- 1047 Jul, Post-menopausal Z78.0 [facility] [address] 88201- 3323 Jul, Stress incontinence of urine N39.3 [facility] [id number] [place] [address] 38660- 1995 Jul, [facility] [address] 34264- 6071 Jul, [facility] [address] 17107- 6089 Jul, Stress incontinence of urine N39.3 and Cough R05 [facility] [id number] [place] [address] 94900- 3945 Jul, [facility] [id number] [place] [address] 73345- 4930 Jul, [facility] [address] 07565- 3595 Jul, [facility] [address] 58637- 8689 Jul, Gastroesophageal reflux disease, esophagitis presence not specified K21.9 [facility] [address] 66203- 1053 Jun, Diabetic polyneuropathy associated with type 2 diabetes mellitus E11.42 [facility] [id number] [place] [address] 79919- 8907 Jun, Diabetic polyneuropathy associated with type 2 diabetes mellitus E11.42 ; Coronary artery disease involving [place] coronary artery of [place] heart with other form of angina pectoris I25.118 and Paroxysmal atrial fibrillation I48.0 [facility] [id number] [place] [address] 85539- 8556 Jun, [facility] [id number] [place] [address] 77879- 9392 Jun, [facility] [id number] [place] [address] 88817- 4934 Jun, Gastroenteritis K52.9 [facility] [id number] [place] [address] 39100- 5538 Jun, Gastroenteritis K52.9 [facility] [id number] [place] [address] 33231- 6297 Jun, [facility] [id number] [place] [address] 67976- 8648 Jun, [facility] [id number] [place] [address] 87633- 5130 Jun, Sprain of right ankle, unspecified ligament, initial encounter S93.401A ; Type 2 diabetes mellitus with diabetic neuropathy, without long-term current use of insulin E11.40 ; Atherosclerosis of [place] artery of both lower extremities with intermittent claudication I70.213 ; Atherosclerotic heart disease of [place]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 I25.118 ; Chronic atrial fibrillation I48.2 and Crohn''s disease without complication, unspecified gastrointestinal tract location K50.90 [facility] [id number] [place] [address] 57945 -6142 17 Jun, 2017 Chronic obstructive pulmonary disease with acute lower respiratory infection J44.0 and Cough R05 [facility] [id number] [place] [address] 46607- 7485 16 Jun, 2017 [facility] [address] [address]- 8617 Jun, Coughing R05 ; Unspecified atherosclerosis of [place] arteries of extremities, unspecified extremity I70.209 ; Type 2 diabetes mellitus with diabetic peripheral angiopathy without gangrene E11.51 ; Crohn''s disease without complication, unspecified gastrointestinal tract location K50.90 ; Other chronic pancreatitis K86.1 and Chronic atrial fibrillation I48.2 [facility] [address] [address] Jun, [facility] [id number] [place] [address] 85480- 5845 Jun, Bipolar affective disorder, currently depressed, moderate F31.32 ; Vascular dementia without behavioral disturbance F01.50 and Generalized anxiety disorder F41.1 [facility] [id number] [place] [address] 41024- 8469 May, Generalized anxiety disorder F41.1 [facility] [address] [address]- 3271 May, [facility] [id number] [place] [address] 39843- 3586 May, [facility] [address] [address]- 4381 May, Coughing R05 [facility] [address] [address]- 0264 May, [facility] [address] [address]- 6024 May, Bipolar affective disorder, currently depressed, moderate F31.32 ; Vascular dementia without behavioral disturbance F01.50 and Generalized anxiety disorder F41.1 [facility] [address] [address]- 7484 Apr, Generalized anxiety disorder F41.1 [facility] [id number] [place] [address] 77530- 3161 Apr, [facility] [id number] [place] [address] 50272- 7262 Apr, Vascular dementia without behavioral disturbance F01.50 ; Generalized anxiety disorder F41.1 and Bipolar affective disorder, currently depressed, moderate F31.32 [place] [id number] [place] [address] 70439- 8086 Apr, Generalized anxiety disorder F41.1 [facility] [id number] [place] [address] 73646 -6151 Apr, Cough R05 and Acute exacerbation of chronic obstructive pulmonary disease (COPD) J44.1 [place] [id number] [place] [address] 05148- 4563 Apr, [facility] [id number] [place] [address] 39228 -2144 Mar, Cough R05 and Cigarette nicotine dependence without complication F17.210 [place] [id number] [place] [address] 88318- 9558 Mar, [place] [id number] [place] [address] 20821- 0424 Feb, Generalized anxiety disorder F41.1 ; Major depressive disorder, recurrent episode, moderate F33.1 ; Vascular dementia without behavioral disturbance F01.50 and Unspecified psychosis F29 [facility] [id number] [place] [address] 32863- 9069 Feb, [facility] [id number] [place] [address] 49667- 4944 Feb, [place] [id number] [place] [address] 30038- 7298 Feb, Generalized anxiety disorder F41.1 [facility] [id number] [place] [address] 01532- 6449 Feb, Generalized anxiety disorder F41.1 [place] [id number] [place] [address] 79736- 7252 Feb, Dizziness R42 ; Chronic fatigue R53.82 ; Postconcussion syndrome F07.81 ; Fall, initial encounter W19.XXXA and Disorientation R41.0 [place] [address] 20111- 5342 Feb, Postconcussion syndrome F07.81 ; Injury of head, initial encounter S09.90XA ; Fall, initial encounter W19.XXXA ; Disorientation R41.0 and Acute cystitis with hematuria N30.01 [place] [address] 14429- 1742 Jan, Gastroesophageal reflux disease, esophagitis presence not specified K21.9 ; Post-menopausal Z78.0 and Migraine without aura and without status migrainosus, not intractable G43.009 [place] [address] 68309- 4694 Jan, [place] [address] 85931- 7964 Jan, Generalized anxiety disorder F41.1 ; Major depressive disorder, recurrent episode, moderate F33.1 ; Vascular dementia without behavioral disturbance F01.50 and Unspecified psychosis F29 [place] [address] 41566- 2724 Jan, Pneumonia of left lower lobe due to infectious organism J18.1 [place] [address] 80722- 0944 Jan, Migraine without aura and with status migrainosus, not intractable G43.001 [facility] [address] 42586 -8655 Jan, Migraine without aura and without status migrainosus, not intractable G43.009 [place] [address] 41880- 8780 Dec, Hematoma T14.8 [facility] [address] [address]- 7471 Dec, [facility] [id number] [place] [address] 13590 -4207 Nov, Fatigue, unspecified type R53.83 [facility] [id number] [place] [address] 67048- 6458 Nov, Scabies B86 and Coronary artery disease involving [place] coronary artery of [place] heart with other form of angina pectoris I25.118 [facility] [id number] [place] [address] 10249- 9060 Nov, [facility] [id number] [place] [address] 39039- 5820 Nov, [facility] [id number] [place] [address] 68190- 2897 Oct, [facility] [id number] [place] [address] 74181- 9350 Oct, Generalized anxiety disorder F41.1 and Major depressive disorder, recurrent episode, moderate F33.1 [facility] [id number] [place] [address] 90784- 4287 Oct, Cramp of both lower extremities R25.2 [facility] [id number] [place] [address] 19873- 4467 Oct, Leg cramps R25.2 [facility] [id number] [place] [address] 90144- 2942 Oct, Chronic pain syndrome G89.4 [facility] [id number] [place] [address] 35154- 7987 Oct, [facility] [id number] [place] [address] 13667- 9423 Oct, [facility] [id number] [place] [address] 01488- 3548 Oct, Routine gynecological examination Z01.419 and Screening for breast cancer Z12.31 [place] [id number] [place] [address] 93287- 2371 28 Sep, 2016 Diarrhea R19.7 [place] [id number] [place] [address] 53714- 9186 26 Sep, 2016 Back pain M54.9 [place] [id number] [place] [address] 32231- 2494 Sep, [place] [id number] [place] [address] 20749- 1412 Sep, [facility] [address] 77784 -1102 August, Xeroderma Q80.9 [place] [address] 01490- 8489 August, Dementia without behavioral disturbance, unspecified dementia type F03.90 [place] [id number] [place] [address] 07274- 6709 August, Chronic pain syndrome G89.4 [place] [address] 28173- 2228 August, [place] [id number] [place] [address] 19160- 7950 August, Hyperlipidemia E78.5 ; Other fatigue R53.83 and Other specified hypotension I95.89 [facility] [id number] [place] [address] 33738 -4913 August, Dysuria R30.0 ; Other fatigue R53.83 and Other specified hypotension I95.89 [place] [id number] [place] [address] 19574- 9086 August, [place] [id number] [place] [address] 12264- 6660 Jul, Pain in left knee M25.562 and Gastroenteritis K52.9 [place] [address] 17684- 3890 Jul, [facility] [address] 38824- 8421 Jul, Diarrhea R19.7 [facility] [address] 44298 -7028 Jul, Spider bite, accidental or unintentional, initial encounter T63.301A [place] [address] 18605- 6733 Jul, Primary osteoarthritis of right knee M17.11 and Arthritis M19.90 [place] [address] 86485- 3283 Jul, Generalized anxiety disorder F41.1 and Major depressive disorder, recurrent episode, moderate F33.1 [place] [address] 77390- 4798 Jul, Type 2 diabetes mellitus with diabetic polyneuropathy E11.42 and Temporal headache R51 [place] [address] 94448- 6179 Jul, Back pain M54.9 [place] [address] 36009- 7778 Jul, [place] [address] 88673- 6815 Jul, [place] [address] 75712- 7322 Jun, Nausea R11.0 [facility] [address] 12639 -3926 Jun, Acute suppurative otitis media of both ears without spontaneous rupture of tympanic membranes, recurrence not specified H66.003 and COPD exacerbation J44.1 [facility] [address] 69399- 8520 Jun, Generalized anxiety disorder F41.1 [facility] [id number] [place] [address] 86537- 7630 16 Jun, 2016 [facility] [address] 25510 -6904 Jun, [facility] [address] 32791 -6165 Jun, Shortness of breath R06.02 and COPD exacerbation J44.1 [facility] [address] 58688- 5708 10 Jun, 2016 Eczema, unspecified type L30.9 [place] [address] 04673- 2915 Jun, [place] [address] 47019- 3015 May, [place] [address] 44765- 6394 May, Muscle cramping R25.2 [place] [address] 58726- 4477 May, [place] [address] 77602- 4844 Apr, Diarrhea R19.7 [place] [id number] [place] [address] 42058- 0833 Apr, [place] [id number] [place] [address] 96098- 3008 Apr, Chronic pain syndrome G89.4 [place] [id number] [place] [address] 37262- 0664 Apr, Cramp of both lower extremities R25.2 and Vascular dementia without behavioral disturbance F01.50 [place] [id number] [place] [address] 72401- 1815 Apr, Type 2 diabetes mellitus with diabetic polyneuropathy E11.42 and Cigarette nicotine dependence without complication F17.210 [facility] [id number] [place] [address] 99350- 9104 Mar, Generalized anxiety disorder F41.1 [place] [address] 06159- 6429 Feb, Generalized anxiety disorder F41.1 and Major depressive disorder, recurrent episode, moderate F33.1 [place] [address] 42025- 4064 Feb, [facility] [id number] [place] [address] 87478 -3479 Feb, Dysuria R30.0 and Acute cystitis with hematuria N30.01 [place] [address] 26561- 0659 Jan, [place] [address] 78708- 1947 Jan, [place] [id number] [place] [address] 30420- 5331 Jan, [place] [address] 60762- 7555 Jan, [facility] [id number] [place] [address] 58524 -4329 Jan, Wasp sting, accidental or unintentional, initial encounter T63.461A [place] [address] 74583- 0503 Jan, Encounter for immunization Z23 [place] [id number] [place] [address] 95402- 9800 Jan, [place] [address] 86772- 8788 Jan, [place] [id number] [place] [address] 53880- 7009 Dec, Generalized anxiety disorder F41.1 and Major depressive disorder, recurrent episode, moderate F33.1 [facility] [address] [id number] [address] 21 Dec, 2015 Routine gynecological examination Z01.419 ; Postmenopausal Z78.0 ; Screening breast examination Z12.39 ; Osteopenia M85.80 and Breast cancer screening Z12.39 [facility] [address] [address] 4737 20 Dec, 2015 [facility] [id number] [place] [address] 50515- 6339 19 Dec, 2015 [facility] [address] [address] 0265 16 Dec, 2015 [facility] [id number] [place] [address] 95384- 2898 16 Dec, 2015 [facility] [id number] [place] [address] 64392- 1609 14 Dec, 2015 [facility] [id number] [address] 8522 06 Dec, 2015 [facility] [id number] [place] [address] 99114- 6369 30 Nov, 2015 [facility] [address] [address] Nov, Cough R05 ; Other viral agents as the cause of diseases classified elsewhere B97.89 and Acute upper respiratory infection, unspecified J06.9 [facility] [address] [address] 3210 Nov, [facility] [address] [address] 1637 Nov, [facility] [address] [address] 6272 Nov, [facility] [address] [address] 5361 Nov, [facility] [id number] [place] [address] 56031- 5138 Nov, [facility] [id number] [place] [address] 81077- 7958 Oct, [facility] [id number] [place] [address] 31425- 9263 Oct, [facility] [id number] [place] [address] 99132- 1487 Oct, [facility] [id number] [place] [address] 17179- 1911 Oct, Chronic pain syndrome G89.4 [facility] [id number] [place] [address] 10341- 1308 Sep, Generalized anxiety disorder F41.1 and Major depressive disorder, recurrent episode, moderate F33.1 [facility] [id number] [place] [address] 61356- 2652 Sep, [facility] [id number] [place] [address] 09273- 5495 Sep, [facility] [id number] [place] [address] 75763- 5411 Sep, Generalized anxiety disorder F41.1 [facility] [id number] [place] [address] 91340- 0571 Sep, Cramp of both lower extremities R25.2 and Cervicalgia M54.2 [facility] [id number] [place] [address] 19833- 1057 Sep, Generalized anxiety disorder F41.1 [facility] [id number] [place] [address] 49254- 7751 Sep, [facility] [id number] [place] [address] 59114 -1704 August, Rash R21 ; Itching L29.9 and Allergic response, subsequent encounter T78.40XD [facility] [id number] [place] [address] 61322- 0594 August, Primary insomnia F51.01 [facility] [id number] [place] [address] 00731 -3264 August, Rash R21 ; Itching L29.9 and Allergic response, initial encounter T78.40XA [facility] [id number] [place] [address] 85876- 2472 August, [facility] [address] [address]- 1509 August, Cramp of both lower extremities R25.2 [facility] [address] 39648- 7971 August, Back pain M54.9 [facility] [id number] [place] [address] 23941- 6019 August, [facility] [address] 52075- 3906 August, [facility] [id number] [place] [address] 97719 -4787 August, Cramp of both lower extremities R25.2 [facility] [id number] [place] [address] 71711- 2831 August, [facility] [id number] [place] [address] 80070- 7644 August, Syncope R55 ; Paroxysmal atrial fibrillation I48.0 ; Dementia without behavioral disturbance, unspecified dementia type F03.90 and Chronic pain syndrome G89.4 [facility] [id number] [place] [address] 75900- 5748 August, Type 2 diabetes mellitus with diabetic polyneuropathy E11.42 and Syncope R55 [facility] [id number] [place] [address] 18158- 0501 Jul, [facility] [address] 64821- 1459 Jul, [facility] [address] [facility] [id number] [address] 3022 Jul, [facility] [address] [facility] [id number] [address] 5340 Jul, [facility] [address] [address]- 5799 Jul, [facility] [id number] [place] [address] 18123- 5464 Jul, UTI (urinary tract infection) N39.0 [facility] [id number] [place] [address] 22439- 1246 Jul, [facility] [id number] [place] [address] 31718- 5308 Jul, Major depressive disorder, recurrent episode, moderate F33.1 and Generalized anxiety disorder F41.1 [facility] [address] [address]- 3539 Jul, Generalized anxiety disorder F41.1 [facility] [id number] [place] [address] 11904- 3523 Jul, Diarrhea R19.7 [facility] [address] [address]- 3210 Jul, [facility] [address] [address]- 5701 Jun, [facility] [address] [address]- 8986 Jun, Eczema L30.9 [facility] [address] [address]- 6919 Jun, [facility] [address] [address]- 6153 17 Jun, 2015 COPD (chronic obstructive pulmonary disease) J44.9 [facility] [address] [address]- 7500 Jun, [facility] [address] [address]- 3577 Jun, Major depressive disorder, recurrent episode, moderate F33.1 and Generalized anxiety disorder F41.1 [facility] [address] [address]- 6149 May, [facility] [address] [address]- 6467 May, UTI (urinary tract infection) N39.0 [facility] [address] [address]- 1106 May, [facility] [address] [address]- 9203 May, [facility] [address] [address]- 3455 May, [facility] [address] [address]- 8022 May, [facility] [address] [address]- 5077 Apr, Major depressive disorder, recurrent episode, moderate F33.1 and Generalized anxiety disorder F41.1 [facility] [address] [address]- 9597 Apr, COPD (chronic obstructive pulmonary disease) J44.9 [facility] [id number] [address]- 7919 Apr, [facility] [address] [address]- 5214 Apr, Atrial flutter I48.92 [facility] [id number] [address]- 1494 Apr, [facility] [address] [address]- 6553 Apr, [facility] [id number] [address]- 3365 Mar, [facility] [id number] [place] [address] 99059- 6970 Mar, [facility] [id number] [place] [address] 92927- 6935 Mar, [facility] [id number] [place] [address] 45034- 8414 Mar, Hyperlipidemia E78.5 ; Type 2 diabetes mellitus with diabetic polyneuropathy E11.42 ; Major depressive disorder, recurrent episode, moderate F33.1 and Chronic pain syndrome G89.4 [facility] [id number] [place] [address] 86455- 4649 Mar, [facility] [id number] [place] [address] 70700- 5796 Mar, [facility] [id number] [place] [address] 74181- 3391 Mar, [facility] [id number] [place] [address] 33931- 0732 Mar, [facility] [id number] [place] [address] 68748- 4979 Feb, COPD (chronic obstructive pulmonary disease) J44.9 and Back pain M54.9 [facility] [id number] [place] [address] 92295- 7307 Feb, [facility] [id number] [place] [address] 57907- 2951 Feb, [facility] [id number] [place] [address] 66226- 2987 Feb, [facility] [id number] [place] [address] 38155- 5679 Feb, [facility] [id number] [place] [address] 03369- 3786 Feb, [facility] [address] [address]- 5821 Feb, [facility] [id number] [place] [address] 31153- 9635 Feb, [facility] [id number] [place] [address] 52062- 4084 Feb, [facility] [id number] [place] [address] 41540- 9275 Feb, Diabetes E11.9 ; Back pain M54.9 and COPD (chronic obstructive pulmonary disease) J44.9 [facility] [id number] [place] [address] 73733- 9976 Jan, [facility] [id number] [place] [address] 56469- 0720 Jan, Major depression, recurrent F33.9 and Generalized anxiety disorder F41.1 [facility] [id number] [place] [address] 48849- 9825 Jan, Chronic pain G89.29 [facility] [id number] [place] [address] 92563- 8760 Jan, [facility] [id number] [place] [address] 84780- 7179 Jan, [facility] [id number] [place] [address] 44521- 0965 Jan, [facility] [id number] [place] [address] 52424- 8942 Jan, [facility] [id number] [place] [address] 20471- 9771 Jan, Nicotine dependence F17.200 [facility] [id number] [place] [address] 86509- 3552 Jan, Nicotine dependence F17.200 and Back pain M54.9 [facility] [id number] [address]- 1840 Jan, [facility] [address] [address]- 7056 28 Dec, 2014 [facility] [id number] [place] [address] 93406- 3902 25 Dec, 2014 Anxiety, generalized 300.02 and Major depression, recurrent 296.30 [facility] [id number] [place] [address] 85149- 6087 24 Dec, 2014 [facility] [id number] [place] [address] 04083- 3507 21 Dec, 2014 [facility] [id number] [place] [address] 90309- 3752 17 Dec, 2014 [facility] [id number] [place] [address] 54678- 2838 15 Dec, 2014 [facility] [id number] [place] [address] 80658- 7760 14 Dec, 2014 [facility] [id number] [place] [address] 67003- 3857 11 Dec, 2014 [facility] [address] [address]- 2596 10 Dec, 2014 [facility] [address] [address]- 3995 08 Dec, 2014 Skin tear 879.8 [facility] [address] [address]- 3534 08 Dec, 2014 Routine gynecological examination V72.31 ; Breast cancer screening V76.10 and Family history of breast cancer in first degree relative V16.3 [facility] [address] [address]- 6582 03 Dec, 2014 [facility] [address] [address]- 5921 02 Dec, 2014 [facility] [id number] [place] [address] 86956- 5848 Nov, [facility] [id number] [place] [address] 12423- 5975 Nov, [facility] [id number] [place] [address] 57233- 5542 Nov, Poor balance 781.99 and Vascular dementia, uncomplicated 290.40 [facility] [id number] [place] [address] 58471- 5993 Nov, [facility] [id number] [place] [address] 62661- 2781 Nov, Major depression, recurrent 296.30 and Anxiety, generalized 300.02 [facility] [id number] [place] [address] 79167- 2957 Nov, [facility] [id number] [place] [address] 59381- 4809 Nov, [facility] [id number] [place] [address] 61599- 3171 Nov, [facility] [id number] [place] [address] 63793- 6485 Nov, [facility] [id number] [place] [address] 82521- 2964 Nov, Vascular dementia, uncomplicated 290.40 and Lumbago 724.2 [facility] [id number] [place] [address] 84150- 7190 Nov, [facility] [id number] [place] [address] 37229- 0055 Nov, [facility] [id number] [place] [address] 10431- 3626 Nov, [facility] [id number] [place] [address] 12348- 3560 Oct, [facility] [id number] [place] [address] 47718- 2556 Oct, [facility] [id number] [place] [address] 85452- 7294 Oct, [facility] [id number] [place] [address] 85714- 2803 Oct, COPD (chronic obstructive pulmonary disease) 496 and Hyperlipidemia 272.4 [facility] [id number] [place] [address] 41024- 4249 Oct, Major depression, recurrent 296.30 and Anxiety, generalized 300.02 [facility] [id number] [place] [address] 40016- 3868 Oct, [facility] [id number] [place] [address] 60308- 7161 Oct, [facility] [id number] [place] [address] 54790- 7576 Oct, [facility] [id number] [place] [address] 76642- 4498 Sep, Lumbago 724.2 and Anxiety state, unspecified 300.00 [facility] [id number] [place] [address] 60971- 7770 Sep, [facility] [id number] [place] [address] 91811- 1544 Sep, [facility] [id number] [place] [address] 58672- 0479 August, [facility] [id number] [place] [address] 47952- 0903 August, Major depression, recurrent 296.30 ; Anxiety, generalized 300.02 and No condition on Edwards II V71.09 [facility] [id number] [place] [address] 57004- 8215 August, [facility] [id number] [place] [address] 83513- 2172 August, [facility] [place] [facility] [address] [id number] [place] [address]- 1939 29 Jul, 2014 [facility] [place] [facility] [address] [id number] [place] [address]- 5626 14 Jul, 2014 [facility] [place] [facility] [address] [id number] [place] [address]- 2886 13 Jul, 2014 [facility] [place] [facility] [address] [id number] [place] [address]- 8456 30 Jun, 2014 [facility] [place] [facility] [address] [id number] [place] [address]- 1351 30 Jun, 2014 [facility] [place] [facility] [address] [id number] [place] [address]- 8648 27 Jun, 2014 [facility] [place] [facility] [address] [id number] [place] [address]- 5550 27 Jun, 2014 [facility] [place] [facility] [address] [id number] [place] [address]- 8892 26 Jun, 2014 [facility] [place] [facility] [address] [id number] [place] [address]- 0696 23 Jun, 2014 [facility] [place] [facility] [address] [id number] [place] [address]- 2776 23 Jun, 2014 [facility] [place] [facility] [address] [id number] [place] [address]- 6149 17 Jun, 2014 [facility] [place] [facility] [address] [id number] [place] [address]- 2632 13 Jun, 2014 [facility] [place] [facility] [address] [id number] [place] [address]- 3767 13 Jun, 2014 [facility] [place] [facility] [address] [id number] [place] [address]- 0796 10 Jun, 2014 [facility] [place] [facility] [address] [id number] [place] [address]- 0126 10 Jun, 2014 [facility] [place] [facility] [address] [id number] [place] [address]- 8499 Jun, 2014 [facility] [place] [facility] [address] [id number] [place] [address]- 6036 Jun, 2014 [facility] [place] [facility] [address] [id number] [place] [address]- 4553 Jun, 2014 [facility] [place] [facility] [address] [id number] [place] [address]- 1886 Jun, 2014 [facility] [place] [facility] [address] [id number] [place] [address]- 6554 May, 2014 [facility] [place] [facility] [address] [id number] [place] [address]- 9198 May, 2014 [facility] [place] [facility] [address] [id number] [place] [address]- 6810 May, 2014 [facility] [place] [facility] [address] [facility] [id number] [place] [address]- 6747 May, 2014 [facility] [place] [facility] [address] [id number] [place] [address]- 6813 May, 2014 [facility] [place] [facility] [address] [id number] [place] [address]- 4369 May, 2014 [facility] [place] [facility] [address] [facility] [id number] [place] [address]- 8228 May, 2014 [facility] [place] [facility] [address] [facility] [id number] [place] [address]- 8401 May, 2014 [facility] [place] [facility] [address] [facility] [id number] [place] [address]- 6531 May, 2014 [facility] [place] [facility] [address] [id number] [place] [address]- 2496 May, 2014 [facility] [place] [facility] [address] [facility] [id number] [place] [address]- 8333 May, 2014 [facility] [place] [facility] [address] [facility] [id number] [place] [address]- 1378 06 Fe2014 [facility] [place] [facility] [address] [id number] [place] [address]- 6747 May, [facility] [place] [facility] [address] [id number] [place] [address]- 3850 May, [facility] [place] [facility] [address] [id number] [place] [address] Apr, [facility] [place] [facility] [address] [id number] [place] [address] Apr, [facility] [place] [facility] [address] [id number] [place] [address] Apr, [facility] [place] [facility] [address] [id number] [place] [address] Apr, [facility] [place] [facility] [address] [id number] [place] [address] Apr, [facility] [place] [facility] [address] [id number] [place] [address] Apr, [facility] [place] [facility] [address] [id number] [place] [address] Apr, [facility] [place] [facility] [address] [id number] [place] [address] Apr, [facility] [place] [facility] [address] [id number] [place] [address] Apr, [facility] [place] [facility] [address] [id number] [address] Apr, [facility] [place] [facility] [address] [id number] [place] [address] Apr, [facility] [place] [facility] [address] [id number] [place] [address] Apr, [facility] [place] [facility] [address] [id number] [place] [address] Mar, [facility] [place] [facility] [address] [id number] [place] [address] 31 Mar, 2014 [facility] [place] [facility] [address] [id number] [place] [address] 30 Mar, 2014 [facility] [place] [facility] [address] [id number] [place] [address] 30 Mar, 2014 [facility] [place] [facility] [address] [id number] [place] [address]- [address] 29 Mar, 2014 [facility] [place] [facility] [address] [id number] [place] [address] 29 Mar, 2014 [facility] [place] [facility] [address] [id number] [place] [address] Mar, [facility] [place] [facility] [address] [id number] [place] [address] Mar, [facility] [place] [facility] [address] [id number] [place] [address] 15 Mar, 2014 [facility] [place] [facility] [address] [id number] [place] [address]- 1668 15 Mar, 2014 [facility] [place] [facility] [address] [id number] [place] [address] 15 Mar, 2014 [facility] [place] [facility] [address] [id number] [place] [address]- [address] 15 Mar, 2014 [facility] [place] [facility] [address] [id number] [place] [address]- [address] 15 Mar, 2014 [facility] [place] [facility] [address] [id number] [place] [address] 15 Mar, 2014 [facility] [place] [facility] [address] [id number] [place] [address] 08 Mar, 2014 [facility] [place] [facility] [address] [id number] [place] [address]- [address] 08 Mar, 2014 [facility] [place] [facility] [address] [id number] [place] [address]- [address] 03 Mar, 2014 [facility] [place] [facility] [address] [id number] [place] [address] Mar, [facility] [place] [facility] [address] [id number] [place] [address] Mar, [facility] [place] [facility] [address] [id number] [place] [address] Mar, [facility] [place] [facility] [address] [id number] [place] [address] Feb, [facility] [place] [facility] [address] [id number] [place] [address] Feb, [facility] [place] [facility] [address] [id number] [place] [address] Feb, [facility] [place] [facility] [address] [id number] [place] [address] Feb, [facility] [place] [facility] [address] [id number] [place] [address] Feb, [facility] [place] [facility] [address] [id number] [place] [address] Feb, [facility] [place] [facility] [address] [id number] [place] [address] 39[address] Feb, [facility] [place] [facility] [address] [id number] [place] [address] Feb, [facility] [place] [facility] [address] [id number] [place] [address] Feb, [facility] [place] [facility] [address] [id number] [place] [address] Feb, [facility] [place] [facility] [address] [address] [id number] [place] [address] Feb, [facility] [place] [facility] [address] [id number] [place] [address] 6618 Feb, [facility] [place] [facility] [address] [id number] [place] [address] 8383 Feb, [facility] [place] [facility] [address] [id number] [place] [address]- 6455 Feb, [facility] [place] [facility] [address] [id number] [place] [address] 4816 Feb, [facility] [place] [facility] [address] [id number] [place] [address]- 7686 Feb, [facility] [place] [facility] [address] [id number] [place] [address]- 5940 Feb, [facility] [place] [facility] [address] [id number] [place] [address]- 6520 Jan, [facility] [place] [facility] [address] [id number] [place] [address]- 4286 Jan, [facility] [place] [facility] [address] [id number] [place] [address]- 6033 Jan, [facility] [place] [facility] [address] [id number] [place] [address]- 5509 Jan, [facility] [place] [facility] [address] [id number] [place] [address]- 4268 Jan, [facility] [place] [facility] [address] [id number] [place] [address]- 3824 Jan, [facility] [place] [facility] [address] [id number] [address] Jan, [facility] [place] [facility] [address] [id number] [address]- 1259 Jan, [facility] [place] [facility] [address] [id number] [place] [address]- 2510 Jan, [facility] [place] [facility] [address] [id number] [place] [address] Jan, [facility] [place] [facility] [address] [id number] [place] [address]- 1428 Jan, [facility] [place] [facility] [address] [id number] [place] [address]- 0688 Dec, [facility] [place] [facility] [address] [id number] [place] [address]- 3295 Dec, [facility] [place] [facility] [address] [id number] [place] [address]- 3886 Nov, [facility] [place] [facility] [address] [id number] [place] [address]- 0988 Nov, [facility] [place] [facility] [address] [id number] [place] [address]- 1014 Nov, [facility] [place] [facility] [address] [id number] [place] [address]- 2585 Nov, [facility] [place] [facility] [address] [id number] [place] [address]- 0427 Nov, [facility] [place] [facility] [address] [id number] [place] [address]- 3511 Nov, [facility] [place] [facility] [address] [id number] [place] [address]- 9551 Nov, [facility] [place] [facility] [address] [id number] [place] [address]- 1230 Oct, [facility] [place] [facility] [address] [id number] [place] [address]- 1391 Oct, [facility] [place] [facility] [address] [id number] [place] [address]- 3541 Oct, [facility] [place] [facility] [address] [id number] [place] [address]- 3868 Oct, [facility] [place] [facility] [address] [id number] [place] [address]- 3108 Sep, [facility] [place] [facility] [address] [id number] [place] [address]- 0207 Sep, [facility] [place] [facility] [address] [id number] [place] [address]- 2385 Sep, [facility] [place] [facility] [address] [id number] [place] [address]- 6251 Sep, [facility] [place] [facility] [address] [id number] [place] [address]- 9640 Sep, [facility] [place] [facility] [address] [id number] [place] [address]- 5521 Sep, [facility] [place] [facility] [address] [id number] [place] [address]- 3199 Sep, [facility] [place] [facility] [address] [id number] [place] [address]- 1571 Sep, [facility] [place] [facility] [address] [id number] [place] [address]- 5107 Sep, [facility] [place] [facility] [address] [id number] [place] [address]- 5676 Sep, [facility] [place] [facility] [address] [id number] [place] [address]- 9098 Sep, [facility] [place] [facility] [address] [id number] [place] [address]- 9023 Sep, [facility] [place] [facility] [address] [id number] [place] [address]- 6664 Sep, [facility] [place] [facility] [address] [id number] [place] [address]- 2131 Sep, [facility] [place] [facility] [address] [id number] [place] [address]- 7626 August, [facility] [place] [facility] [address] [id number] [place] [address]- 4669 August, [facility] [place] [facility] [address] [id number] [place] [address]- 2063 August, [facility] [place] [facility] [address] [id number] [place] [address]- 0313 August, [facility] [place] [facility] [address] [id number] [place] [address]- [address], [facility] [address] [id number] [place] [address]- 5698 August, [facility] [place] [facility] [address] [id number] [place] [address]- 8077 August, [facility] [place] [facility] [address] [id number] [place] [address]- 1439 August, [facility] [place] [facility] [address] [id number] [place] [address]- 2144 August, [facility] [place] [facility] [address] [id number] [place] [address]- 8646 August, [facility] [place] [facility] [address] [id number] [place] [address]- 3975 August, [facility] [place] [facility] [address] [id number] [place] [address]- 0147 August, [facility] [place] [facility] [address] [id number] [place] [address]- 5641 August, [facility] [place] [facility] [address] [id number] [place] [address]- 9233 August, [facility] [place] [facility] [address] [id number] [place] [address]- 3255 August, [facility] [place] [facility] [address] [id number] [place] [address]- 9113 August, [facility] [place] [facility] [address] [id number] [place] [address]- 7036 August, [facility] [place] [facility] [address] [id number] [place] [address]- 9480 August, [facility] [place] [facility] [address] [id number] [place] [address]- 4714 August, [facility] [place] [facility] [address] [id number] [place] [address]- 6534 Jul, [facility] [place] [facility] [address] [id number] [place] [address]- 3418 Jul, [facility] [place] [facility] [address] [id number] [place] [address]- 3246 Jul, [facility] [place] [facility] [address] [id number] [place] [address]- 1536 Jul, [facility] [place] [facility] [address] [id number] [place] [address]- 8815 Jun, [facility] [place] [facility] [address] [id number] [place] [address]- 1676 Jun, [facility] [place] [facility] [address] [id number] [place] [address]- 9645 Jun, [facility] [place] [facility] [address] [id number] [place] [address]- 6270 Jun, [facility] [place] [facility] [address] [id number] [place] [address]- 4268 Jun, [facility] [place] [facility] [address] [id number] [place] [address]- 6314 Jun, [facility] [place] [facility] [address] [id number] [place] [address]- 7210 Jun, [facility] [place] [facility] [address] [facility] [id number] [place] [address]- 1564 Jun, [facility] [place] [facility] [address] [id number] [place] [address]- 9315 Jun, [facility] [place] [facility] [address] [id number] [place] [address]- 8641 Jun, [facility] [place] [facility] [address] [id number] [place] [address]- 9254 May, [facility] [place] [facility] [address] [id number] [place] [address]- 5530 May, [facility] [place] [facility] [address] [id number] [place] May, [facility] [place] [facility] [address] [id number] [place] [address]- 2585 May, [facility] [place] [facility] [address] [id number] [place] [address]- 1886 May, [facility] [place] [facility] [address] [facility] [id number] [place] [address]- 2544 May, [facility] [place] [facility] [address] [id number] [place] [address]- 2740 May, [facility] [place] [facility] [address] [id number] [place] [address]- 6359 May, [facility] [place] [facility] [address] [facility] [id number] [place] [address]- 4114 May, [facility] [place] [facility] [address] [facility] [id number] [place] [address]- 3137 May, [facility] [place] [facility] [address] [id number] [place] [address]- 8702 May, [facility] [place] [facility] [address] [facility] [id number] [place] [address]- 2587 17 May, 2013 [facility] [place] [facility] [address] [facility] [id number] [place] [address]- 6615 May, [facility] [place] [facility] [address] [facility] [id number] [place] [address]- 6098 May, [facility] [place] [facility] [address] [facility] [id number] [place] [address]- 1875 May, [facility] [place] [facility] [address] [facility] [id number] [place] [address]- 9704 07 May, 2013 [facility] [place] [facility] [address] [facility] [id number] [place] [address]- 9691 07 May, 2013 [facility] [place] [facility] [address] [facility] [id number] [place] [address]- 8957 Apr, [facility] [place] [facility] [address] [id number] [place] [address]- 8085 Apr, [facility] [address] [id number] [place] [address]- 6057 Apr, [facility] [place] [facility] [address] [id number] [place] [address]- 4866 Apr, [facility] [place] [facility] [address] [id number] [place] [address]- 3974 Apr, [facility] [place] [facility] [address] [id number] [place] [address]- 1823 Apr, [facility] [place] [facility] [address] [id number] [place] [address]- 3644 Apr, [facility] [address] [id number] [place] [address]- 9601 Mar, [facility] [place] [facility] [address] [id number] [place] [address]- 2985 Mar, [facility] [place] [facility] [address] [id number] [place] [address]- 0204 Mar, [facility] [place] [facility] [address] [id number] [place] [address]- 8983 Mar, [facility] [place] [facility] [address] [id number] [place] [address]- 2985 Mar, [facility] [place] [facility] [address] [id number] [place] [address]- 3083 Mar, [facility] [place] [facility] [address] [id number] [place] [address]- 2682 Mar, [facility] [place] [facility] [address] [id number] [place] [address]- 9113 Mar, [facility] [place] [facility] [address] [id number] [place] [address]- 3119 Mar, [facility] [place] [facility] [address] [id number] [place] [address]- 4440 04 Mar, 2013 [facility] [place] [facility] [address] [id number] [place] [address]- 6795 04 Mar, 2013 [facility] [place] [facility] [address] [id number] [place] [address]- 9709 Feb, [facility] [place] [facility] [address] [id number] [place] [address]- 8246 Feb, [facility] [place] [facility] [address] [id number] [address]- 2469 Feb, [facility] [place] [facility] [address] [id number] [place] [address]- 4421 20 Feb, 2013 [facility] [place] [facility] [address] [id number] [address]- 8012 Feb, [facility] [place] [facility] [address] [id number] [place] [address]- 3787 19 Feb, 2013 [facility] [place] [facility] [address] [id number] [address]- 6927 15 Feb, 2013 [facility] [place] [facility] [address] [id number] [address]- 7573 14 Feb, 2013 [facility] [place] [facility] [address] [id number] [address]- 6682 14 Feb, 2013 [facility] [place] [facility] [address] [id number] [address]- 5088 13 Feb, 2013 [facility] [place] [facility] [address] [id number] [address]- 2864 13 Feb, 2013 [facility] [place] [facility] [address] [id number] [address]- 8029 12 Feb, 2013 [facility] [place] [facility] [address] [id number] [address]- 8582 12 Feb, 2013 [facility] [place] [facility] [address] [id number] [address]- 8387 11 Feb, 2013 [facility] [place] [facility] [address] [id number] [place] [address]- 5540 05 Feb, 2013 [facility] [address] [id number] [place] [address]- 1631 05 Feb, 2013 [facility] [place] [facility] [address] [id number] [place] [address]- 0521 28 Jan, 2013 [facility] [place] [facility] [address] [id number] [place] [address]- 9812 24 Jan, 2013 [facility] [place] [facility] [address] [id number] [place] [address]- 7695 Jan, [facility] [place] [facility] [address] [id number] [place] [address]- 8433 Jan, [facility] [place] [facility] [address] [id number] [place] [address]- 9132 Jan, [facility] [place] [facility] [address] [id number] [place] [address]- 6281 Jan, [facility] [place] [facility] [address] [id number] [place] [address]- 0871 Jan, [facility] [place] [facility] [address] [id number] [place] [address]- 0943 10 Jan, 2013 [facility] [place] [facility] [address] [id number] [place] [address]- 8374 10 Jan, 2013 [facility] [place] [facility] [address] [id number] [place] [address]- 2548 27 Dec, 2012 [facility] [place] [facility] [address] [id number] [place] [address]- 2540 20 Sep, 2012 [facility] [place] [facility] [address] [id number] [place] [address]- 2540 19 Sep, 2012 [facility] [place] [facility] [address] [id number] [place] [address]- 2540 10 Dec, 2012 [facility] [place] [facility] [address] [id number] [place] [address]- 8605 Dec, [facility] [place] [facility] [address] [id number] [place] [address]- 8689 Dec, [facility] [place] [facility] [address] [id number] [place] [address]- 3573 Nov, [facility] [place] [facility] [address] [id number] [place] [address]- 0591 Nov, [facility] [place] [facility] [address] [id number] [place] [address]- 3551 Nov, [facility] [place] [facility] [address] [id number] [place] [address]- 2738 Nov, [facility] [place] [facility] [address] [id number] [place] [address]- 3918 Nov, [facility] [place] [facility] [address] [id number] [place] [address]- 3375 Nov, [facility] [place] [facility] [address] [id number] [place] [address]- 0340 Nov, [facility] [place] [facility] [address] [id number] [place] [address]- 3918 Nov, [facility] [place] [facility] [address] [id number] [place] [address]- 9861 Nov, [facility] [place] [facility] [address] [id number] [place] [address]- 7880 Nov, [facility] [place] [facility] [address] [id number] [place] [address]- 0655 Oct, [facility] [place] [facility] [address] [id number] [place] [address]- 6763 Oct, [facility] [place] [facility] [address] [id number] [place] [address]- 8517 Oct, [facility] [place] [facility] [address] [id number] [place] [address]- 0228 Oct, [facility] [place] [facility] [address] [id number] [place] [address]- 3497 Oct, [facility] [address] [id number] [place] [address]- 1744 Oct, [facility] [place] [facility] [address] [id number] [place] [address]- 6493 Oct, [facility] [place] [facility] [address] [id number] [place] [address]- 1177 Oct, [facility] [place] [facility] [address] [id number] [place] [address]- 8306 Sep, [facility] [place] [facility] [address] [id number] [place] [address]- 7671 Sep, [facility] [place] [facility] [address] [id number] [place] [address]- 4852 Sep, [facility] [place] [facility] [address] [id number] [place] [address]- 8735 Sep, [facility] [place] [facility] [address] [id number] [place] [address]- 8692 Sep, [facility] [place] [facility] [address] [id number] [place] [address]- 2357 Sep, [facility] [place] [facility] [address] [id number] [place] [address]- 3974 Sep, [facility] [place] [facility] [address] [id number] [place] [address]- 4537 Sep, [facility] [place] [facility] [address] [id number] [place] [address]- 2592 August, [facility] [place] [facility] [address] [id number] [place] [address]- 3903 August, [facility] [place] [facility] [address] [id number] [place] [address]- 1841 August, [facility] [place] [facility] [address] [id number] [place] [address]- 6810 August, [facility] [place] [facility] [address] [id number] [place] [address]- 4459 August, [facility] [address] [id number] [place] [address]- 9216 Jul, [facility] [address] [id number] [place] [address]- 9226 Jul, [facility] [address] [id number] [place] [address]- 2496 Jul, [facility] [address] [id number] [place] [address]- 9131 Jul, [facility] [address] [id number] [place] [address]- 4145 Jul, [facility] [address] [id number] [place] [address]- 8247 Jun, [facility] [address] [id number] [place] [address]- 0434 Jun, [facility] [address] [id number] [place] [address]- 5714 15 Jun, 2012 [facility] [address] [id number] [place] [address]- 8307 14 Jun, 2012 [facility] [address] [id number] [place] [address]- 4912 Jun, [facility] [address] [id number] [place] [address]- 8269 Jun, [facility] [address] [id number] [place] [address]- 5503 Jun, [facility] [place] [facility] [address] [id number] [place] [address] Jun, [facility] [address] [id number] [place] [address] Jun, [facility] [address] [id number] [place] [address] May, [facility] [address] [id number] [place] [address] May, [facility] [address] [id number] [place] [address] May, [facility] [address] [facility] [id number] [place] [address] May, [facility] [address] [id number] [place] [address] Apr, [facility] [address] [id number] [place] [address] Apr, [facility] [address] [id number] [place] [address]- [address] Apr, [facility] [address] [id number] [place] [address] Apr, [facility] [address] [id number] [place] [address] Apr, [facility] [address] [id number] [place] [address] Apr, [facility] [address] [facility] [id number] [place] [address] Apr, [facility] [address] [id number] [address] Mar, [facility] [address] [place] [id number] Mar, [facility] [address] [id number] [place] [address] Mar, [facility] [address] [id number] [place] [address] Mar, [facility] [address] [facility] [id number] [address] Mar, [facility] [address] [id number] [address] Mar, [facility] [place] [facility] [address] [id number] [place] [address]- [address] Mar, [facility] [place] [facility] [address] [id number] [place] [address] Mar, [facility] [place] [facility] [address] [facility] [id number] [place] [address]- [address]76 Mar, [facility] [place] [facility] [address] [id number] [place] [address]- 2481 Mar, [facility] [place] [facility] [address] [id number] [place] [address]- 9426 Mar, [facility] [place] [facility] [address] [id number] [place] [address]- [address] Mar, [facility] [place] [facility] [address] [id number] [place] [address] Mar, [facility] [place] [facility] [address] [id number] [place] [address]- [address] Mar, [facility] [place] [facility] [address] [facility] [id number] [place] [address] Mar, [facility] [place] [facility] [address] [facility] [id number] [place] [address]- [address] Mar, [facility] [place] [facility] [address] [id number] [place] [address] Mar, [facility] [place] [facility] [address] [id number] [place] [address]- [address] Feb, [facility] [place] [facility] [address] [id number] [place] [address]- [address] Feb, [facility] [place] [facility] [address] [id number] [place] [address]- [address] Feb, [facility] [place] [facility] [address] [facility] [id number] [place] [address]- [address] Feb, [facility] [place] [facility] [address] [id number] [place] [address]- [address] Feb, [facility] [place] [facility] [address] [id number] [place] [address]- 15[address] Feb, [facility] [place] [facility] [address] [id number] [place] [address]- 9431 Feb, [facility] [place] [facility] [address] [id number] [place] [address]- [address] Feb, [facility] [place] [facility] [address] [id number] [place] [address]- [address]77 Feb, [facility] [place] [facility] [address] [id number] [place] [address]- [address] Feb, [facility] [place] [facility] [address] [id number] [place] [address]- 49[address] Feb, [facility] [place] [facility] [address] [id number] [place] [address]- [address] Feb, [facility] [place] [facility] [address] [id number] [place] [address]- 8040 Feb, [facility] [place] [facility] [address] [id number] [place] [address]- 5663 Feb, [facility] [place] [facility] [address] [facility] [id number] [place] [address]- 68[address] Feb, [facility] [place] [facility] [address] [id number] [place] [address]- [address]326 Feb, [facility] [place] [facility] [address] [id number] [place] [address]- [address] Jan, [facility] [place] [facility] [address] [id number] [place] [address]- 8844 Jan, [facility] [place] [facility] [address] [id number] [place] [address]- 9152 Jan, [facility] [place] [facility] [address] [id number] [place] [address]- 8994 Jan, [facility] [place] [facility] [address] [id number] [place] [address]- 0678 Jan, [facility] [place] [facility] [address] [id number] [place] [address]- 2626 Jan, [facility] [place] [facility] [address] [id number] [place] [address]- 6735 Jan, [facility] [place] [facility] [address] [id number] [place] [address]- [address]84 Jan, [facility] [place] [facility] [address] [id number] [place] [address]- [address] Jan, [facility] [place] [facility] [address] [id number] [place] [address]- 2648 Jan, [facility] [place] [facility] [address] [id number] [place] [address]- 1020 Jan, [facility] [place] [facility] [address] [id number] [address]- [address] Jan, [facility] [place] [facility] [address] [id number] [place] [address]- [address] Jan, [facility] [place] [facility] [address] [id number] [address]- [address] Jan, [facility] [place] [facility] [address] [id number] [address]- [address] Jan, [facility] [place] [facility] [address] [id number] [address]- 9[address] Jan, [facility] [place] [facility] [address] [id number] [place] [address]- 0147 Jan, [facility] [place] [facility] [address] [id number] [address]- [address] Dec, [facility] [place] [facility] [address] [id number] [address]- [address] Dec, [facility] [place] [facility] [address] [id number] [place] [address]- 58[address] 18 Dec, 2011 [facility] [place] [facility] [address] [id number] [place] [address]46 18 Dec, 2011 [facility] [place] [facility] [address] [id number] [place] [address] 2546 10 Dec, 2011 [facility] [place] [facility] [address] [id number] [place] [address] 2546 10 Dec, 2011 [facility] [place] [facility] [address] [id number] [place] [address] 2546 10 Dec, 2011 [facility] [place] [facility] [address] [id number] [place] [address]- [address] 07 Dec, 2011 [facility] [place] [facility] [address] [id number] [place] [address] 2546 30 Nov, 2011 [facility] [place] [facility] [address] [id number] [place] [address]- [address]26 25 Nov, 2011 [facility] [place] [facility] [address] [id number] [place] [address] 2547 24 Nov, 2011 [facility] [place] [facility] [address] [id number] [place] [address] Nov, [facility] [place] [facility] [address] [id number] [place] [address] Nov, [facility] [place] [facility] [address] [id number] [place] [address] 2546 16 Nov, 2011 [facility] [place] [facility] [address] [id number] [place] [address] 2546 Oct, [facility] [place] [facility] [address] [id number] [place] [address] 2546 Oct, [facility] [place] [facility] [address] [id number] [place] [address] Oct, [facility] [place] [facility] [address] [id number] [place] [address] Oct, [facility] [place] [facility] [address] [id number] [place] [address] Oct, [facility] [place] [facility] [address] [id number] [place] [address] Oct, [facility] [place] [facility] [address] [id number] [place] [address] Oct, [facility] [place] [facility] [address] [id number] [place] [address] Sep, [facility] [place] [facility] [address] [id number] [place] [address] Sep, [facility] [place] [facility] [address] [id number] [place] [address] Sep, [facility] [place] [facility] [address] [id number] [place] [address] 8292 Sep, [facility] [place] [facility] [address] [id number] [place] [address] 3971 Sep, [facility] [place] [facility] [address] [id number] [place] [address] 9[address] 15 Sep, 2011 [facility] [place] [facility] [address] [id number] [place] [address]- [address]275 14 Sep, 2011 [facility] [place] [facility] [address] [id number] [place] [address]- [address] Sep, [facility] [place] [facility] [address] [id number] [place] [address]- 6589 05 Sep, 2011 [facility] [place] [facility] [address] [id number] [place] [address]- [address] Sep, [facility] [place] [facility] [address] [id number] [place] [address] August, [facility] [place] [facility] [address] [id number] [place] [address]274 16 Aug, 2011 [facility] [place] [facility] [address] [id number] [place] [address]226 August, [facility] [address] [id number] [place] [address]- 1135 August, [facility] [place] [facility] [address] [id number] [place] [address]353 August, [facility] [place] [facility] [address] [id number] [place] [address]- 5046 Jul, [facility] [place] [facility] [address] [id number] [place] [address]- 8864 Jul, [facility] [place] [facility] [address] [id number] [place] [address] 8969 Jul, [facility] [place] [facility] [address] [id number] [place] [address] 0366 Jul, [facility] [place] [facility] [address] [id number] [place] [address]878 Jul, [facility] [place] [facility] [address] [id number] [place] [address]- 8612 Jul, [facility] [place] [facility] [address] [id number] [place] [address] 6[address] Jul, [facility] [place] [facility] [address] [id number] [place] [address]378 Jun, [facility] [place] [facility] [address] [id number] [place] [address]- 7298 Jun, [facility] [place] [facility] [address] [id number] [place] [address]- 5171 Jun, [facility] [place] [facility] [address] [id number] [place] [address]- 8990 Jun, [facility] [place] [facility] [address] [id number] [place] [address]- 4173 Jun, [facility] [place] [facility] [address] [id number] [place] [address] 4061 May, [facility] [place] [facility] [address] [id number] [place] [address]- 9085 May, [facility] [place] [facility] [address] [id number] [place] [address]- 1077 May, [facility] [place] [facility] [address] [id number] [place] [address]- 8906 May, [facility] [place] [facility] [address] [id number] [place] [address]- 6736 May, [facility] [place] [facility] [address] [id number] [place] [address]- 5134 May, [facility] [place] [facility] [address] [id number] [place] [address] 0798 Apr, [facility] [place] [facility] [address] [id number] [place] [address]- 7858 Mar, [facility] [place] [facility] [address] [id number] [place] [address] 0386 Feb, [facility] [place] [facility] [address] [id number] [place] [address] 4032 Feb, [facility] [place] [facility] [address] [facility] [id number] [place] [address]- 7873 Feb, [facility] [place] [facility] [address] [facility] [id number] [place] [address]- 8821 Feb, [facility] [place] [facility] [address] [facility] [id number] [place] [address]- 6090 Jan, [facility] [place] [facility] [address] [id number] [place] [address]- 2542 Jan, [facility] [place] [facility] [address] [id number] [place] [address]- 2019 Jan, [facility] [place] [facility] [address] [id number] [place] [address]- 0175 24 Jan, 2011 [facility] [place] [facility] [address] [id number] [place] [address]- 3288 14 Jan, 2011 [facility] [address] [id number] [place] [address]- 9221 19 Dec, 2010 [facility] [place] [facility] [address] [id number] [place] [address]- 4486 20 Oct, 2010 [facility] [place] [facility] [address] [id number] [place] [address]- 5776 August, [facility] [place] [facility] [address] [id number] [place] [address]- 1359 29 Mar, 2010 [facility] [place] [facility] [address] [id number] [place] [address]- 9738 27 Mar, 2010 [facility] [place] [facility] [address] [id number] [place] [address]- 2264 16 Mar, 2010 [facility] [place] [facility] [address] [id number] [place] [address]- 3392 15 Mar, 2010 [facility] [place] [facility] [address] [id number] [address]27 15 Mar, 2010 [facility] [place] [facility] [address] [id number] [place] [address]- 6026 08 Mar, 2010 [facility] [place] [facility] [address] [id number] [place] [address]- 2168 03 Mar, 2010 [facility] [place] [facility] [address] [id number] [address]- 1807 24 Feb, 2010 [facility] [place] [facility] [address] [id number] [address]- 8292 24 Feb, 2010 [facility] [place] [facility] [address] [id number] [address]- 0741 15 Feb, 2010 [facility] [place] [facility] [address] [id number] [address]- 3053 19 Jan, 2010 [facility] [place] [facility] [address] [id number] [place] [address]- 1383 18 Jan, 2010 [facility] [place] [facility] [address] [id number] [place] [address]- 6977 18 Jan, 2010 [facility] [place] [facility] [address] [id number] [place] [address]- 1691 Nov, [facility] [place] [facility] [address] [id number] [place] [address]- 7892 Sep, [facility] [place] [facility] [address] [id number] [place] [address]- 9613 August, [facility] [place] [facility] [address] [id number] [place] [address] 2542 Mar, [facility] [place] [facility] [address] [id number] [place] [address]- 7497 Mar, [facility] [place] [facility] [address] [id number] [place] [address]- 3141 Feb, [facility] [place] [facility] [address] [id number] [place] [address]- 6570 Feb, [facility] [place] [facility] [address] [id number] [place] [address]- 2198 Feb, [facility] [place] [facility] [address] [id number] [place] [address]- 3920 Feb, [facility] [place] [facility] [address] [facility] [id number] [place] [address]- 5028 06 Feb, 2009 [facility] [place] [facility] [address] [id number] [place] [address]- 2540 27 Jan, 2009 [facility] [place] [facility] [address] [id number] [place] [address]- 2548 Jan, [facility] [place] [facility] [address] [id number] [place] [address] 2542 20 Jan, 2009 [facility] [place] [facility] [address] [id number] [place] [address]- 2547 Jan, [facility] [place] [facility] [address] [id number] [address]- 8110 Nov, [facility] [address] [facility] [id number] [address]- 2522 Sep, [facility] [address] [id number] [address]- 30[address] August, [facility] [address] [id number] [address]- 7226 Jul, [facility] [address] [facility] [id number] [address]- 2155 May, IMMUNIZATIONS No Known Immunizations SOCIAL HISTORY Never Assessed REASON FOR VISIT Requests return call PLAN OF CARE VITAL SIGNS MEDICATIONS Medication Instructions Dosage Frequency Start Date End Date Duration Status Lamictal 25 MG Orally every night 3 tablets Apr, 30 days Active HydrOXYzine HCl 25 MG Orally [...] Knee Surgery 07/16/17 Hospitalization History [facility]- left hand/wrist swelling 10/09/2017
--- OUTSIDE RECORDS SUMMARY | 2018-01-01 12:52 | XMS REPORT ---
Author Author PATRICK GALAVIZ Organization [facility] Address [address] [place] [address] Care Team Providers Care Drapery Head Former Name Role Phone PATRICK GALAVIZ Unavailable PROBLEMS Type Condition ICD9-CM Code FFM32-OI Code Onset Dates Condition Status SNOMED Code Problem History of common bile duct surgery Z98.89 Active 286822094 Problem Barretts esophagus K22.70 Active 647835417 Problem 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 Active 94094516 Problem Colon polyp K63.5 Active 58586165 Problem Bilateral low back pain without sciatica M54.5 Active 466004251 Problem Screening breast examination Z12.39 Active 980949939 Problem Postmenopausal Z78.0 Active 06701997 Problem Osteopenia M85.80 Active 224137507 Problem Cigarette nicotine dependence without complication F17.210 Active 83568366 Problem Type 2 diabetes mellitus with diabetic peripheral angiopathy without gangrene E11.51 Active 796021664 Problem Vascular dementia without behavioral disturbance F01.50 Active 32943931106313832 Problem Unspecified atherosclerosis of [place] arteries of extremities, unspecified extremity I70.209 Active 145500565989542 Problem Arthritis M19.90 Active 3379802 Problem Chronic atrial fibrillation I48.2 Active 873428853 Problem Chronic obstructive pulmonary disease with acute lower respiratory infection J44.0 Active 289795956 Problem Other chronic pancreatitis K86.1 Active 208547386 Problem Stress incontinence of urine N39.3 Active 86431911 Problem Controlled type 2 diabetes mellitus without complication, without long -term current use of insulin E11.9 Active 517940323 Problem Unspecified psychosis F29 Active 86470584 Problem Xeroderma Q80.9 Active 79136900 Problem COPD (chronic obstructive pulmonary disease) J44.9 Active 40251531 Problem Dementia without behavioral disturbance, unspecified dementia type F03.90 Active 13639368 Problem Gastroparesis K31.84 Active 306388869 Problem Type 2 diabetes mellitus with diabetic neuropathy, without long-term current use of insulin E11.40 Active 21208948 Problem Osteoporosis M81.0 Active 49246614 Problem Atherosclerosis of [place] artery of both lower extremities with intermittent claudication I70.213 Active 005254869993813 Problem Hyperlipidemia E78.5 Active 65670928 Problem Diabetic polyneuropathy associated with type 2 diabetes mellitus E11.42 Active 06101873 Problem Essential tremor G25.0 Active 69205970 Problem Atherosclerotic heart disease of [place]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 I25.118 Active 0336523865075 Problem Generalized anxiety disorder F41.1 Active 301754518 Problem Gastroesophageal reflux disease, esophagitis presence not specified K21.9 Active 366408897 Problem Coronary artery disease involving [place] coronary artery of or[place]iut heart with other form of angina pectoris I25.118 Active 7517229576255 Problem Postconcussion syndrome F07.81 Active 48317287 Problem Chronic pain syndrome G89.4 Active 137764444 Problem Migraine without aura and without status migrainosus, not intractable G43.009 Active 889975623 Problem Paroxysmal atrial fibrillation I48.0 Active 888860646 Problem Migraine without aura and with status migrainosus, not intractable G43.001 Active 854615417 Problem Cervicalgia M54.2 Active 8218617130659 Problem Acute exacerbation of chronic obstructive pulmonary disease (COPD) J44.1 Active 205725644 Problem Major depressive disorder, recurrent episode, moderate F33.1 Active 052144423 Problem Crohn''s disease without complication, unspecified gastrointestinal tract location K50.90 Active 76713089 Problem Chronic fatigue R53.82 Active 37638118 Problem Bipolar affective disorder, currently depressed, moderate F31.32 Active 173005487 ALLERGIES No Information ENCOUNTERS Encounter Location Date Diagnosis [facility] [address] [facility] [id number] [address] Nov, [facility] [id number], [place] [address] Nov, [facility] [id number], [place] [address] Oct, [facility] [address] [facility] [id number], [place] [address] Oct, Edema of both legs R60.0 [facility] [address], [place] [address] Oct, [facility] [id number] [address] Sep, [facility] [address], [place] [address] Sep, [facility] [id number] [place] [address] 73167- 5989 Sep, [facility] [address] [place] [address] 04362- 8815 Sep, Encounter for well woman exam with routine gynecological exam Z01.419 ; Screening for STDs (sexually transmitted diseases) Z11.3 ; Screening breast examination Z12.31 and Overweight (BMI 25.0-29.9) E66.3 [place] [id number] [place] [address] 92855- 3524 Sep, [place] [address], [place] [address] 6[address] Sep, [facility] [id number] [address] Sep, [facility] [address], [place] [address] August, [facility] [address], [place] [address] August, [facility] [address], [place] [address] August, Type 2 diabetes mellitus with diabetic neuropathy, without long-term current use of insulin E11.40 and Sprain of right ankle, unspecified ligament, initial encounter S93.401A [facility] [address], [place] [address] August, [facility] [address], [place] [address] August, [facility] [id number] [place] [address] 16691- 4173 August, [facility] [id number] [place] [address] 18995- 2502 August, Gastroesophageal reflux disease, esophagitis presence not specified K21.9 [facility] [address] 35667- 7176 August, [facility] [id number] [place] [address] 89244- 6959 August, [place] [address] 73285- 4808 August, [facility] [id number] [place] [address] 46325- 5951 August, Type 2 diabetes mellitus with diabetic neuropathy, without long-term current use of insulin E11.40 and Elevated liver enzymes R74.8 [facility] [id number] [place] [address] 18942- 9395 Jul, [place] [id number] [place] [address] 70274- 4987 Jul, Cough R05 [facility] [id number] [place] [address] 57834- 6273 Jul, [facility] [id number] [place] [address] 35392- 6252 Jul, [facility] [id number] [place] [address] 41118- 3331 Jul, Bipolar affective disorder, currently depressed, moderate F31.32 ; Vascular dementia without behavioral disturbance F01.50 and Generalized anxiety disorder F41.1 [facility] [id number] [place] [address] 54772- 9563 Jul, [facility] [id number] [place] [address] 86957- 5909 Jul, Type 2 diabetes mellitus with diabetic neuropathy, without long-term current use of insulin E11.40 and Elevated liver enzymes R74.8 [facility] [address] 25046- 3973 Jul, [facility] [address] 66715- 5773 Jul, [facility] [address] 76968- 9785 Jul, [facility] [address] 79986- 6477 Jul, Post-menopausal Z78.0 [place] [address] 13574- 0558 Jul, Stress incontinence of urine N39.3 [place] [address] 66180- 6429 Jul, [facility] [address] 13586- 3889 Jul, [facility] [address] 50203- 5176 Jul, Stress incontinence of urine N39.3 and Cough R05 [place] [id number] [place] [address] 78018- 3492 Jul, [place] [address] 93311- 4786 Jul, [facility] [id number] [place] [address] 91965- 3105 Jul, [facility] [address] 52897- 6009 Jul, Gastroesophageal reflux disease, esophagitis presence not specified K21.9 [place] [id number] [place] [address] 11780- 3276 Jun, Diabetic polyneuropathy associated with type 2 diabetes mellitus E11.42 [facility] [id number] [place] [address] 21819- 1149 28 Jun, 2017 Diabetic polyneuropathy associated with type 2 diabetes mellitus E11.42 ; Coronary artery disease involving [place] coronary artery of [place] heart with other form of angina pectoris I25.118 and Paroxysmal atrial fibrillation I48.0 [facility] [id number] [place] [address] 84462- 1484 Jun, [facility] [id number] [place] [address] 66370- 4581 Jun, [facility] [id number] [place] [address] 98367- 4601 Jun, Gastroenteritis K52.9 [place] [id number] [place] [address] 81962- 6630 Jun, Gastroenteritis K52.9 [facility] [id number] [place] [address] 41347- 3262 Jun, 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 [id number] [place] [address] 91798- 1870 16 Jun, 2017 [facility] [id number] [place] [address] 00248- 7991 Jun, Coughing R05 ; Unspecified atherosclerosis of [place] arteries of extremities, unspecified extremity I70.209 ; Type 2 diabetes mellitus with diabetic peripheral angiopathy without gangrene E11.51 ; Crohn''s disease without complication, unspecified gastrointestinal tract location K50.90 ; Other chronic pancreatitis K86.1 and Chronic atrial fibrillation I48.2 [facility] [id number] [place] [address] 30383 -5080 Jun, [facility] [id number] [place] [address] 47201- 8445 Jun, Bipolar affective disorder, currently depressed, moderate F31.32 ; Vascular dementia without behavioral disturbance F01.50 and Generalized anxiety disorder F41.1 [facility] [id number] [place] [address] 21158- 8994 May, Generalized anxiety disorder F41.1 [facility] [id number] [place] [address] 89247- 0360 May, [facility] [id number] [place] [address] 39832- 9113 May, [facility] [id number] [place] [address] 83255- 1571 May, Coughing R05 [place] [id number] [place] [address] 35196- 4131 May, [facility] [id number] [place] [address] 61645- 4510 May, Bipolar affective disorder, currently depressed, moderate F31.32 ; Vascular dementia without behavioral disturbance F01.50 and Generalized anxiety disorder F41.1 [place] [id number] [place] [address] 55075- 9781 Apr, Generalized anxiety disorder F41.1 [place] [id number] [place] [address] 78646- 2568 Apr, [facility] [id number] [place] [address] 39843- 4434 Apr, Vascular dementia without behavioral disturbance F01.50 ; Generalized anxiety disorder F41.1 and Bipolar affective disorder, currently depressed, moderate F31.32 [place] [id number] [place] [address] 87228- 1696 Apr, Generalized anxiety disorder F41.1 [facility] [id number] [place] [address] 67658 -0535 Apr, Cough R05 and Acute exacerbation of chronic obstructive pulmonary disease (COPD) J44.1 [place] [id number] [place] [address] 36228- 5842 Apr, [facility] [id number] [place] [address] 17770 -5055 Mar, Cough R05 and Cigarette nicotine dependence without complication F17.210 [place] [id number] [place] [address] 55496- 9150 Mar, [place] [id number] [place] [address] 85791- 6563 Feb, Generalized anxiety disorder F41.1 ; Major depressive disorder, recurrent episode, moderate F33.1 ; Vascular dementia without behavioral disturbance F01.50 and Unspecified psychosis F29 [place] [id number] [place] [address] 51206- 5465 Feb, [place] [id number] [place] [address] 05591- 1173 Feb, [place] [id number] [place] [address] 11820- 9095 Feb, Generalized anxiety disorder F41.1 [place] [id number] [place] [address] 44297- 0289 Feb, Generalized anxiety disorder F41.1 [place] [id number] [place] [address] 97622- 0865 Feb, Dizziness R42 ; Chronic fatigue R53.82 ; Postconcussion syndrome F07.81 ; Fall, initial encounter W19.XXXA and Disorientation R41.0 [place] [address] 67225- 1946 Feb, Postconcussion syndrome F07.81 ; Injury of head, initial encounter S09.90XA ; Fall, initial encounter W19.XXXA ; Disorientation R41.0 and Acute cystitis with hematuria N30.01 [place] [address] 45406- 5580 Jan, Gastroesophageal reflux disease, esophagitis presence not specified K21.9 ; Post-menopausal Z78.0 and Migraine without aura and without status migrainosus, not intractable G43.009 [place] [address] 24770- 1876 Jan, [place] [address] 38065- 7173 Jan, Generalized anxiety disorder F41.1 ; Major depressive disorder, recurrent episode, moderate F33.1 ; Vascular dementia without behavioral disturbance F01.50 and Unspecified psychosis F29 [place] [address] 22166- 8202 Jan, Pneumonia of left lower lobe due to infectious organism J18.1 [facility] [address] 12606- 6487 Jan, Migraine without aura and with status migrainosus, not intractable G43.001 [facility] [id number] [place] [address] 86588 -6151 Jan, Migraine without aura and without status migrainosus, not intractable G43.009 [facility] [address] 13986- 0110 Dec, Hematoma T14.8 [facility] [address] 18991- 6374 Dec, [facility] [address], [place] [address] Nov, Fatigue, unspecified type R53.83 [facility] [id number] [place] [address] 55572- 8168 Nov, Scabies B86 and Coronary artery disease involving [place] coronary artery of [place] heart with other form of angina pectoris I25.118 [facility] [id number] [place] [address] 24438- 7293 Nov, [facility] [id number] [place] [address] 14207- 5093 Nov, [facility] [id number] [place] [address] 02443- 8148 Oct, [place] [id number] [place] [address] 93732- 1477 Oct, Generalized anxiety disorder F41.1 and Major depressive disorder, recurrent episode, moderate F33.1 [place] [address] [place] [address] 54927- 6261 Oct, Cramp of both lower extremities R25.2 [place] [id number] [place] [address] 59674- 5416 Oct, Leg cramps R25.2 [place] [address] [place] [address] 03793- 7444 Oct, Chronic pain syndrome G89.4 [facility] [address] [place] [address] 62346- 8829 17 Oct, 2016 [place] [id number] [place] [address] 13158- 1933 Oct, [facility] [address] [place] [address] 24754- 8634 Oct, Routine gynecological examination Z01.419 and Screening for breast cancer Z12.31 [place] [id number] [place] [address] 23221- 8584 Sep, Diarrhea R19.7 [facility] [id number] [place] [address] 40367- 0099 Sep, Back pain M54.9 [facility] [id number] [place] [address] 78926- 9942 Sep, [facility] [id number] [place] [address] 47958- 8422 Sep, [facility] [id number] [place] [address] 08512 -7898 August, Xeroderma Q80.9 [place] [id number] [place] [address] 35169- 5703 August, Dementia without behavioral disturbance, unspecified dementia type F03.90 [place] [id number] [place] [address] 66051- 2671 August, Chronic pain syndrome G89.4 [place] [id number] [place] [address] 25105- 2564 August, [place] [id number] [place] [address] 41185- 1111 August, Hyperlipidemia E78.5 ; Other fatigue R53.83 and Other specified hypotension I95.89 [facility] [id number] [place] [address] 58552 -0542 August, Dysuria R30.0 ; Other fatigue R53.83 and Other specified hypotension I95.89 [facility] [id number] [place] [address] 92963- 9642 August, [facility] [id number] [place] [address] 66765- 6855 Jul, Pain in left knee M25.562 and Gastroenteritis K52.9 [facility] [id number] [place] [address] 99845- 0663 Jul, [facility] [id number] [place] [address] 06971- 9169 Jul, Diarrhea R19.7 [facility] [address] 20057 -5457 Jul, Spider bite, accidental or unintentional, initial encounter T63.301A [place] [address] 06709- 0086 Jul, Primary osteoarthritis of right knee M17.11 and Arthritis M19.90 [place] [address] 23276- 8334 Jul, Generalized anxiety disorder F41.1 and Major depressive disorder, recurrent episode, moderate F33.1 [place] [address] 48127- 4045 Jul, Type 2 diabetes mellitus with diabetic polyneuropathy E11.42 and Temporal headache R51 [place] [address] 44932- 4712 Jul, Back pain M54.9 [place] [address] 25839- 8739 Jul, [place] [address] 11085- 6317 Jul, [place] [id number] [place] [address] 37835- 1160 Jun, Nausea R11.0 [facility] [id number] [place] [address] 80399 -4595 Jun, Acute suppurative otitis media of both ears without spontaneous rupture of tympanic membranes, recurrence not specified H66.003 and COPD exacerbation J44.1 [place] [id number] [place] [address] 27526- 9980 Jun, Generalized anxiety disorder F41.1 [place] [id number] [place] [address] 19555- 7739 Jun, [facility] [id number] [place] [address] 60625 -[phone] Jun, [facility] [id number] [place] [address] 12584 -2286 Jun, Shortness of breath R06.02 and COPD exacerbation J44.1 [place] [id number] [place] [address] 85290- 7219 Jun, Eczema, unspecified type L30.9 [facility] [id number] [place] [address] 74734- 4896 Jun, [place] [address] [address]40- [address]64 May, [place] [id number] [place] [address] 17158- 6750 May, Muscle cramping R25.2 [place] [id number] [place] [address] 22737- 3645 May, [place] [id number] [place] [address] 59833- 4700 Apr, Diarrhea R19.7 [place] [id number] [place] [address] 93115- 5919 Apr, [place] [id number] [place] [address] 27024- 1642 Apr, Chronic pain syndrome G89.4 [place] [id number] [place] [address] 48409- 6879 Apr, Cramp of both lower extremities R25.2 and Vascular dementia without behavioral disturbance F01.50 [facility] [id number] [place] [address] 43434- 7891 Apr, Type 2 diabetes mellitus with diabetic polyneuropathy E11.42 and Cigarette nicotine dependence without complication F17.210 [place] [facility] [id number] [place] [address] 14425- 7506 Mar, Generalized anxiety disorder F41.1 [facility] [id number] [place] [address] 59090- 1256 Feb, Generalized anxiety disorder F41.1 and Major depressive disorder, recurrent episode, moderate F33.1 [facility] [id number] [place] [address] 69980- 8325 Feb, [facility] [id number] [place] [address] 66804 -0366 Feb, Dysuria R30.0 and Acute cystitis with hematuria N30.01 [facility] [id number] [place] [address] 93639- 0670 Jan, [facility] [id number] [place] [address] 30208- 2633 Jan, [facility] [address] 79855- 1773 Jan, [facility] [id number] [place] [address] 78089- 7330 Jan, [facility] [id number] [place] [address] 12536 -1038 Jan, Wasp sting, accidental or unintentional, initial encounter T63.461A [facility] [facility] [id number] [place] [address] 48579- 8175 Jan, Encounter for immunization Z23 [facility] [id number] [place] [address] 57355- 8862 Jan, [facility] [id number] [place] [address] 04707- 1495 Jan, [facility] [facility] [id number] [place] [address] 92376- 5195 Dec, Generalized anxiety disorder F41.1 and Major depressive disorder, recurrent episode, moderate F33.1 [facility] [id number] [place] [address] 71748- 8189 Dec, Routine gynecological examination Z01.419 ; Postmenopausal Z78.0 ; Screening breast examination Z12.39 ; Osteopenia M85.80 and Breast cancer screening Z12.39 [facility] [id number] [place] [address] 4220 Dec, [facility] [id number], [place] [address]- 1391 Dec, [facility] [id number] [place] [address] 61922- 8569 Dec, [facility] [id number] [place] [address] 87633- 5464 Dec, [facility] [id number] [place] [address] 59834- 4098 Dec, [facility] [id number] [place] [address] 45074- 5474 Dec, [facility] [id number] [address] 2056 Nov, [facility] [id number] [place] [address] 98056 -3483 Nov, Cough R05 ; Other viral agents as the cause of diseases classified elsewhere B97.89 and Acute upper respiratory infection, unspecified J06.9 [facility] [id number], [place] [address]- 4211 Nov, [facility] [id number], [place] [address]- 1136 Nov, [facility] [id number], [place] [address]- 9933 Nov, [facility] [id number], [place] [address]- 2537 Nov, [facility] [id number], [place] [address]- 3111 Nov, [facility] [id number] [place] [address]- 1318 Oct, [facility] [id number] [place] [address] 72612- 9143 Oct, [facility] [id number] [place] [address] 74026- 5707 14 Oct, 2015 [facility] [id number] [place] [address] 87663- 1231 Oct, Chronic pain syndrome G89.4 [facility] [id number] [place] [address] 66728- 9270 Sep, Generalized anxiety disorder F41.1 and Major depressive disorder, recurrent episode, moderate F33.1 [facility] [id number] [place] [address] 40172- 4253 Sep, [facility] [id number] [place] [address] 34272- 5549 Sep, [facility] [id number] [place] [address] 30023- 4770 Sep, Generalized anxiety disorder F41.1 [facility] [facility] [id number] [place] [address] 17350- 1150 Sep, Cramp of both lower extremities R25.2 and Cervicalgia M54.2 [facility] [id number] [place] [address] 90187- 5309 Sep, Generalized anxiety disorder F41.1 [facility] [facility] [id number] [place] [address] 71243- 5285 Sep, [facility] [id number] [place] [address] 34965 -9290 August, Rash R21 ; Itching L29.9 and Allergic response, subsequent encounter T78.40XD [facility] [id number] [place] [address] 83912- 1754 August, Primary insomnia F51.01 [facility] [id number], [place] [address]68[address] August, Rash R21 ; Itching L29.9 and Allergic response, initial encounter T78.40XA [facility] [id number] [place] [address] 47460- 0939 August, [facility] [id number] [place] [address] 50742- 6979 August, Cramp of both lower extremities R25.2 [facility] [id number] [place] [address] 53367- 2364 August, Back pain M54.9 [facility] [id number] [place] [address] 90383- 9645 August, [facility] [id number] [place] [address] 55684- 7240 August, [facility] [id number] [place] [address] 95771 -9305 August, Cramp of both lower extremities R25.2 [facility] [id number] [place] [address] 84481- 0751 August, [facility] [id number] [place] [address] 49243- 8528 August, Syncope R55 ; Paroxysmal atrial fibrillation I48.0 ; Dementia without behavioral disturbance, unspecified dementia type F03.90 and Chronic pain syndrome G89.4 [facility] [id number] [place] [address] 82479- 6095 August, Type 2 diabetes mellitus with diabetic polyneuropathy E11.42 and Syncope R55 [facility] [id number] [place] [address] 76126- 8266 Jul, [facility] [id number] [place] [address] 36606- 1770 Jul, [facility] [id number] [place] [address] 31858- 4066 Jul, [facility] [id number], [place] [address]- 1648 Jul, [facility] [id number], [place] [address]- 5050 Jul, [facility] [id number], [place] [address]- 3093 19 Jul, 2015 UTI (urinary tract infection) N39.0 [facility] [id number], [place] [address]- 1397 18 Jul, 2015 [facility] [id number] [place] [address] 44337- 7812 18 Jul, 2015 Major depressive disorder, recurrent episode, moderate F33.1 and Generalized anxiety disorder F41.1 [facility] [id number], [place] [address]- 6760 Jul, Generalized anxiety disorder F41.1 [facility] [id number], [place] [address]- 9433 Jul, Diarrhea R19.7 [facility] [id number], [place] [address]- 6010 Jul, [facility] [id number], [place] [address]- 1275 Jun, [facility] [id number], [place] [address]- 5701 Jun, Eczema L30.9 [facility] [id number], [place] [address]- 8608 Jun, [facility] [id number], [place] [address]- 9546 17 Jun, 2015 COPD (chronic obstructive pulmonary disease) J44.9 [facility] [id number], [place] [address]- 3586 16 Jun, 2015 [facility] [id number], [place] [address]- 2844 Jun, Major depressive disorder, recurrent episode, moderate F33.1 and Generalized anxiety disorder F41.1 [facility] [id number], [place] [address]- 5334 May, [facility] [id number], [place] [address]- 7686 May, UTI (urinary tract infection) N39.0 [facility] [id number] [place] [address] 34007- 8316 May, [facility] [id number] [place] [address] 69455- 8706 May, [facility] [id number] [place] [address] 06877- 7585 May, [facility] [id number] [place] [address] 70027- 2337 May, [facility] [id number] [place] [address] 49196- 4508 Apr, Major depressive disorder, recurrent episode, moderate F33.1 and Generalized anxiety disorder F41.1 [facility] [id number], [place] [address]- 2456 Apr, COPD (chronic obstructive pulmonary disease) J44.9 [facility] [id number], [place] [address]- 4184 Apr, [facility] [id number] [place] [address] 23818- 8699 Apr, Atrial flutter I48.92 [facility] [id number] [place] [address] 03519- 3117 Apr, [facility] [id number], [place] [address]- 5770 Apr, [facility] [id number] [place] [address] 86090- 0193 Mar, [facility] [id number], [place] [address]- 6037 Mar, [facility] [id number] [place] [address] 50774- 2906 Mar, [facility] [id number] [place] [address] 33681- 6752 Mar, Hyperlipidemia E78.5 ; Type 2 diabetes mellitus with diabetic polyneuropathy E11.42 ; Major depressive disorder, recurrent episode, moderate F33.1 and Chronic pain syndrome G89.4 [facility] [id number] [place] [address] 17360- 6047 Mar, [facility] [id number] [place] [address] 76793- 6664 Mar, [facility] [id number] [place] [address] 91018- 7502 Mar, [facility] [id number] [place] [address] 13784- 1510 Mar, [facility] [id number] [place] [address] 88683- 8916 Feb, COPD (chronic obstructive pulmonary disease) J44.9 and Back pain M54.9 [facility] [id number] [place] [address] 07715- 5234 Feb, [facility] [id number] [place] [address] 48457- 1789 Feb, [facility] [id number] [place] [address] 62414- 2110 Feb, [facility] [id number] [place] [address] 17890- 1612 Feb, [facility] [id number] [place] [address] 82030- 6780 Feb, [facility] [id number] [place] [address] 85621- 0225 Feb, [facility] [id number] [place] [address] 60788- 6038 Feb, [facility] [id number] [place] [address] 19452- 5142 Feb, [facility] [id number] [place] [address] 83660- 2284 Feb, Diabetes E11.9 ; Back pain M54.9 and COPD (chronic obstructive pulmonary disease) J44.9 [facility] [id number] [place] [address] 84673- 1368 Jan, [facility] [id number] [place] [address] 10597- 6641 Jan, Major depression, recurrent F33.9 and Generalized anxiety disorder F41.1 [facility] [id number] [place] [address] 47675- 3321 Jan, Chronic pain G89.29 [facility] [id number] [place] [address] 59071- 9088 Jan, [facility] [id number] [place] [address] 33178- 8034 Jan, [facility] [id number] [place] [address] 33683- 7959 Jan, [facility] [id number] [place] [address] 69198- 7851 Jan, [facility] [id number] [place] [address] 47899- 9350 Jan, Nicotine dependence F17.200 [facility] [id number] [place] [address] 23108- 0572 Jan, Nicotine dependence F17.200 and Back pain M54.9 [facility] [id number] [place] [address] 27544- 3708 Jan, [facility] [id number] [place] [address]- 1933 28 Dec, 2014 [facility] [id number] [place] [address] 14047- 4531 25 Dec, 2014 Anxiety, generalized 300.02 and Major depression, recurrent 296.30 [facility] [address], [place] [address]- 7830 24 Dec, 2014 [facility] [id number] [place] [address] 50573- 2544 21 Dec, 2014 [facility] [id number], [place] [address]- 6352 17 Dec, 2014 [facility] [id number] [place] [address] 64745- 0944 15 Dec, 2014 [facility] [id number] [place] [address] 87029- 0054 14 Dec, 2014 [facility] [id number] [place] [address] 56838- 8929 11 Dec, 2014 [facility] [id number], [place] [address]- 2340 10 Dec, 2014 [facility] [id number] [place] [address] 38105- 2663 08 Dec, 2014 Skin tear 879.8 [facility] [address], [place] [address]- 2377 08 Dec, 2014 Routine gynecological examination V72.31 ; Breast cancer screening V76.10 and Family history of breast cancer in first degree relative V16.3 [facility] [address], [place] [address]- 6644 03 Dec, 2014 [facility] [id number] [place] [address] 96122- 0172 02 Dec, 2014 [facility] [id number], [place] [address]- 0256 Nov, [facility] [id number] [place] [address] 95953- 3674 Nov, [facility] [id number] [place] [address] 13231- 9427 Nov, Poor balance 781.99 and Vascular dementia, uncomplicated 290.40 [facility] [id number] [place] [address] 25632- 3461 Nov, [facility] [id number] [place] [address] 24452- 6678 Nov, Major depression, recurrent 296.30 and Anxiety, generalized 300.02 [facility] [id number] [place] [address] 92244- 2226 Nov, [facility] [id number] [place] [address] 80616- 4153 Nov, [facility] [id number] [place] [address] 09107- 6346 Nov, [facility] [id number] [place] [address] 06698- 1905 Nov, [facility] [id number] [place] [address] 32476- 5731 Nov, Vascular dementia, uncomplicated 290.40 and Lumbago 724.2 [facility] [id number] [place] [address] 39673- 9785 Nov, [facility] [id number] [place] [address] 84930- 7367 Nov, [facility] [id number] [place] [address] 63079- 9082 Nov, [facility] [id number] [place] [address] [id number]- 8187 Oct, [facility] [id number] [place] [address] 16353- 4956 Oct, [facility] [id number] [place] [address] 33419- 8006 Oct, [facility] [id number] [address] Oct, COPD (chronic obstructive pulmonary disease) 496 and Hyperlipidemia 272.4 [facility] [id number] [place] [address] 51956- 2213 Oct, Major depression, recurrent 296.30 and Anxiety, generalized 300.02 [facility] [id number] [place] [address] 25036- 1704 Oct, [facility] [id number] [place] [address] 00838- 1244 Oct, [facility] [id number] [place] [address] 41378- 5719 Oct, [facility] [id number] [place] [address] 13382- 4187 Sep, Lumbago 724.2 and Anxiety state, unspecified 300.00 [facility] [id number] [place] [address] 32101- 6166 Sep, [facility] [id number] [place] [address] 67845- 6546 Sep, [facility] [id number] [place] [address] 53112- 3678 August, [facility] [id number] [place] [address] 13353- 0954 August, Major depression, recurrent 296.30 ; Anxiety, generalized 300.02 and No condition on Sanborn II V71.09 [facility] [id number] [place] [address] 54332- 6219 August, [facility] [id number] [place] [address] 76460- 6017 August, [facility] [id number] [place] [address] 59490- 4703 Jul, [facility] [place] [facility] [address] [id number] [place] [address]- 9566 14 Jul, 2014 [facility] [place] [facility] [address] [id number] [place] [address]- 5576 13 Jul, 2014 [facility] [place] [facility] [address] [id number] [place] [address]- 1136 30 Jun, 2014 [facility] [place] [facility] [address] [id number] [place] [address]- 8296 30 Jun, 2014 [facility] [place] [facility] [address] [id number] [place] [address]- 3107 27 Jun, 2014 [facility] [place] [facility] [address] [id number] [place] [address]- 0965 27 Jun, 2014 [facility] [place] [facility] [address] [id number] [place] [address]- 4086 26 Jun, 2014 [facility] [place] [facility] [address] [id number] [place] [address]- 7921 23 Jun, 2014 [facility] [place] [facility] [address] [id number] [place] [address]- 5279 23 Jun, 2014 [facility] [place] [facility] [address] [id number] [place] [address]- 3683 17 Jun, 2014 [facility] [place] [facility] [address] [id number] [place] [address]- 4191 13 Jun, 2014 [facility] [place] [facility] [address] [id number] [place] [address]- 7207 13 Jun, 2014 [facility] [place] [facility] [address] [id number] [place] [address]- 5340 10 Jun, 2014 [facility] [place] [facility] [address] [id number] [place] [address]- 0356 10 Jun, 2014 [facility] [place] [facility] [address] [id number] [place] [address]- 2546 07 Jun, 2014 [facility] [place] [facility] [address] [id number] [place] [address]- 9684 Jun, 2014 [facility] [place] [facility] [address] [id number] [place] [address]- 9710 Jun, 2014 [facility] [place] [facility] [address] [id number] [place] [address]- 4597 Jun, [facility] [place] [facility] [address] [facility] [id number] [place] [address]- 7445 May, 2014 [facility] [place] [facility] [address] [id number] [place] [address] May, 2014 [facility] [place] [facility] [address] [id number] [place] [address] 9369 May, 2014 [facility] [place] [facility] [address] [facility] [id number] [place] [address] 5553 May, 2014 [facility] [place] [facility] [address] [facility] [id number] [place] [address] 4705 May, 2014 [facility] [place] [facility] [address] [facility] [id number] [place] [address] 2974 May, 2014 [facility] [place] [facility] [address] [facility] [id number] [place] [address] 5655 May, 2014 [facility] [place] [facility] [address] [facility] [id number] [place] [address] 5826 May, 2014 [facility] [place] [facility] [address] [facility] [id number] [place] [address]- 4778 May, 2014 [facility] [place] [facility] [address] [facility] [id number] [place] [address] 2540 May, 2014 [facility] [place] [facility] [address] [id number] [place] [address]- 7628 May, 2014 [facility] [place] [facility] [address] [facility] [id number] [place] [address]- 9917 May, 2014 [facility] [place] [facility] [address] [facility] [id number] [place] [address]- 3996 04 May, 2014 [facility] [place] [facility] [address] [id number] [place] [address]- 9567 May, [facility] [place] [facility] [address] [id number] [place] [address]- 6510 Apr, [facility] [place] [facility] [address] [id number] [place] [address]- 3169 Apr, [facility] [place] [facility] [address] [id number] [place] [address]- 8314 Apr, [facility] [place] [facility] [address] [id number] [place] [address]- 0894 Apr, [facility] [place] [facility] [address] [id number] [place] [address]- 4653 Apr, [facility] [place] [facility] [address] [id number] [place] [address] 6090 Apr, [facility] [place] [facility] [address] [id number] [place] [address]- 1099 Apr, [facility] [place] [facility] [address] [id number] [place] [address]- 4253 Apr, [facility] [place] [facility] [address] [id number] [place] [address]- 8955 Apr, [facility] [place] [facility] [address] [id number] [place] [address]- 2973 Apr, [facility] [place] [facility] [address] [id number], [place] [address] 8[address] Apr, [facility] [place] [facility] [address] [id number] [place] [address]- 4871 Apr, [facility] [place] [facility] [address] [id number] [place] [address]- 6869 Mar, [facility] [place] [facility] [address] [id number] [place] [address]- 4727 Mar, [facility] [place] [facility] [address] [id number] [place] [address]- 9745 30 Mar, 2014 [facility] [place] [facility] [address] [id number] [place] [address]- 5339 30 Mar, 2014 [facility] [place] [facility] [address] [id number] [place] [address]- 4576 Mar, [facility] [place] [facility] [address] [id number] [place] [address]- 5176 Mar, [facility] [place] [facility] [address] [id number] [place] [address]- 2368 Mar, [facility] [place] [facility] [address] [id number] [place] [address]- 6199 Mar, [facility] [place] [facility] [address] [id number] [place] [address]- 8264 15 Mar, 2014 [facility] [place] [facility] [address] [id number] [place] [address]- 7115 15 Mar, 2014 [facility] [place] [facility] [address] [id number] [place] [address]- 3653 15 Mar, 2014 [facility] [place] [facility] [address] [id number] [place] [address]- 1208 15 Mar, 2014 [facility] [place] [facility] [address] [id number] [place] [address]- 3213 15 Mar, 2014 [facility] [place] [facility] [address] [id number] [place] [address]- 1567 15 Mar, 2014 [facility] [place] [facility] [address] [id number] [place] [address]- 5510 08 Mar, 2014 [facility] [place] [facility] [address] [id number] [place] [address]- 9730 Mar, [facility] [place] [facility] [address] [id number] [place] [address]- 2737 Mar, [facility] [place] [facility] [address] [id number] [place] [address]- 5911 Mar, [facility] [place] [facility] [address] [id number] [place] [address]- 4335 Mar, [facility] [place] [facility] [address] [id number] [place] [address]- 6637 Mar, [facility] [place] [facility] [address] [id number] [place] [address]- 4955 Feb, [facility] [place] [facility] [address] [id number] [place] [address]- 1775 Feb, [facility] [place] [facility] [address] [id number] [place] [address]- 8871 Feb, [facility] [place] [facility] [address] [id number] [place] [address]- 7959 Feb, [facility] [place] [facility] [address] [id number] [place] [address]- 4692 Feb, [facility] [place] [facility] [address] [id number] [place] [address]- 2674 Feb, [facility] [place] [facility] [address] [id number] [place] [address]- 3996 Feb, [facility] [place] [facility] [address] [id number] [place] [address]- 8324 Feb, [facility] [place] [facility] [address] [id number] [place] [address] 1651 Feb, [facility] [place] [facility] [address] [id number] [place] [address]- 7732 Feb, [facility] [place] [facility] [address] [id number] [place] [address]- 5504 Feb, [facility] [place] [facility] [address] [id number] [place] [address]- 0354 Feb, [facility] [place] [facility] [address] [id number] [place] [address]- 4905 Feb, [facility] [place] [facility] [address] [id number] [place] [address]- 1660 Feb, [facility] [place] [facility] [address] [id number] [place] [address]- 6118 Feb, [facility] [place] [facility] [address] [id number] [place] [address]- 8619 Feb, [facility] [place] [facility] [address] [id number] [place] [address]- 5249 Feb, [facility] [place] [facility] [address] [id number] [place] [address]- 3256 Jan, [facility] [place] [facility] [address] [id number] [place] [address] Jan, [facility] [place] [facility] [address] [id number] [place] [address]- 2250 Jan, [facility] [place] [facility] [address] [id number] [place] [address]- 2077 Jan, [facility] [place] [facility] [address] [id number] [place] [address]- 1804 Jan, [facility] [place] [facility] [address] [id number] [place] [address]- 3485 Jan, [facility] [place] [facility] [address] [id number] [place] [address]- 9882 Jan, [facility] [place] [facility] [address] [id number] [place] [address]- 8086 Jan, [facility] [place] [facility] [address] [id number], [place] [address]- 4440 Jan, [facility] [place] [facility] [address] [id number] [place] [address] Jan, [facility] [place] [facility] [address] [id number] [place] [address]- 2757 Jan, [facility] [place] [facility] [address] [id number] [place] [address]- 1671 Dec, [facility] [place] [facility] [address] [id number] [place] [address]- 7905 Dec, [facility] [place] [facility] [address] [id number] [place] [address]- 2692 Nov, [facility] [place] [facility] [address] [id number] [place] [address]- 2164 Nov, [facility] [place] [facility] [address] [id number] [place] [address]- 7087 Nov, [facility] [place] [facility] [address] [id number] [place] [address]- 7254 Nov, [facility] [place] [facility] [address] [id number] [place] [address]- 3978 Nov, [facility] [place] [facility] [address] [id number] [place] [address]- 8371 Nov, [facility] [place] [facility] [address] [id number] [place] [address]- 8227 Nov, [facility] [place] [facility] [address] [id number] [place] [address]- 0728 Oct, [facility] [place] [facility] [address] [id number] [place] [address]- 6377 Oct, [facility] [place] [facility] [address] [id number] [place] [address]- 7545 Oct, [facility] [place] [facility] [address] [id number] [place] [address]- 0334 Oct, [facility] [place] [facility] [address] [id number] [place] [address]- 6689 Sep, [facility] [place] [facility] [address] [id number] [place] [address]- 9522 Sep, [facility] [place] [facility] [address] [id number] [place] [address]- 1641 Sep, [facility] [place] [facility] [address] [id number] [place] [address]- 6314 Sep, [facility] [place] [facility] [address] [id number] [place] [address]- 0598 Sep, [facility] [place] [facility] [address] [id number] [place] [address]- 8900 Sep, [facility] [place] [facility] [address] [id number] [place] [address]- 3126 Sep, [facility] [place] [facility] [address] [id number] [place] [address]- 9258 Sep, [facility] [place] [facility] [address] [id number] [place] [address]- 3063 Sep, [facility] [place] [facility] [address] [id number] [place] [address]- 2803 Sep, [facility] [place] [facility] [address] [id number] [place] [address]- 1092 Sep, [facility] [place] [facility] [address] [id number] [place] [address]- 7316 Sep, [facility] [place] [facility] [address] [id number] [place] [address]- 5724 Sep, [facility] [place] [facility] [address] [id number] [place] [address]- 4396 Sep, [facility] [place] [facility] [address] [id number] [place] [address]- 2641 August, [facility] [place] [facility] [address] [id number] [place] [address]- 7819 August, [facility] [place] [facility] [address] [id number] [place] [address]- 2005 August, [facility] [place] [facility] [address] [id number] [place] [address]- 3605 August, [facility] [place] [facility] [address] [id number] [place] [address]- 3105 August, [facility] [place] [facility] [address] [id number] [place] [address]- 8913 August, [facility] [address] [id number] [place] [address]- 9693 August, [facility] [place] [facility] [address] [id number] [place] [address]- 3837 August, [facility] [place] [facility] [address] [id number] [place] [address]- 3583 August, [facility] [place] [facility] [address] [id number] [place] [address]- 7736 August, [facility] [place] [facility] [address] [id number] [place] [address]- 3603 August, [facility] [place] [facility] [address] [id number] [place] [address]- 5302 August, [facility] [place] [facility] [address] [id number] [place] [address]- 7086 August, [facility] [place] [facility] [address] [id number] [place] [address]- 1510 August, [facility] [place] [facility] [address] [id number] [place] [address]- 9920 August, [facility] [place] [facility] [address] [id number] [place] [address]- 7793 August, [facility] [place] [facility] [address] [id number] [place] [address]- 1820 August, [facility] [place] [facility] [address] [id number] [place] [address]- 5298 August, [facility] [place] [facility] [address] [id number] [place] [address]- 8669 August, [facility] [place] [facility] [address] [id number] [place] [address]- 0443 Jul, [facility] [place] [facility] [address] [id number] [place] [address]- 2212 Jul, [facility] [place] [facility] [address] [id number] [place] [address]- 6316 08 Jul, 2013 [facility] [place] [facility] [address] [id number] [place] [address]24 08 Jul, 2013 [facility] [place] [facility] [address] [id number] [place] [address]- 1288 Jun, [facility] [place] [facility] [address] [id number] [place] [address]- 1990 27 Jun, 2013 [facility] [place] [facility] [address] [id number] [place] [address]- 9788 24 Jun, 2013 [facility] [place] [facility] [address] [id number] [place] [address]- 8712 24 Jun, 2013 [facility] [place] [facility] [address] [id number] [place] [address]- 5273 Jun, [facility] [place] [facility] [address] [id number] [place] [address]- 6429 17 Jun, 2013 [facility] [place] [facility] [address] [id number] [place] [address]- 4378 Jun, [facility] [place] [facility] [address] [id number] [place] [address]- 0178 Jun, [facility] [place] [facility] [address] [facility] [id number] [place] [address]- 1455 Jun, [facility] [place] [facility] [address] [id number] [place] [address]- 4358 Jun, [facility] [place] [facility] [address] [id number] [place] [address]- 3047 May, [facility] [place] [facility] [address] [id number] [place] [address]- 9563 May, [facility] [place] [facility] [address] [id number] [place] [address]- 4307 May, [facility] [place] [facility] [address] [id number] [place] [address]- 8349 May, [facility] [place] [facility] [address] [id number] [place] [address]- 3630 May, [facility] [place] [facility] [address] [id number] [place] [address]- 4338 May, [facility] [place] [facility] [address] [facility] [id number] [place] [address]- 8213 20 May, 2013 [facility] [place] [facility] [address] [id number] [place] [address]- 5836 May, [facility] [place] [facility] [address] [id number] [place] [address]- 5327 May, [facility] [place] [facility] [address] [facility] [id number] [place] [address]- 5216 18 May, 2013 [facility] [place] [facility] [address] [facility] [id number] [place] [address]- 6395 May, [facility] [place] [facility] [address] [id number] [place] [address]- 5254 17 May, 2013 [facility] [place] [facility] [address] [id number] [place] [address]- 2606 May, [facility] [place] [facility] [address] [facility] [id number] [place] [address]- 8017 May, [facility] [place] [facility] [address] [facility] [id number] [place] [address]- 1602 May, [facility] [place] [facility] [address] [facility] [id number] [place] [address]- 5380 May, [facility] [place] [facility] [address] [facility] [id number] [place] [address]- 8874 07 May, 2013 [facility] [place] [facility] [address] [facility] [id number] [place] [address]- 4500 Apr, [facility] [place] [facility] [address] [facility] [id number] [place] [address]- 0614 15 Apr, 2013 [facility] [place] [facility] [address] [id number] [place] [address]- 3485 Apr, [facility] [address] [id number] [place] [address]- 2267 Apr, [facility] [place] [facility] [address] [id number] [place] [address]- 1266 Apr, [facility] [place] [facility] [address] [id number] [place] [address]- 0260 Apr, [facility] [place] [facility] [address] [id number] [place] [address]- 6360 Apr, [facility] [place] [facility] [address] [id number] [place] [address]- 9706 Mar, [facility] [place] [facility] [address] [id number] [place] [address]- 7430 Mar, [facility] [place] [facility] [address] [id number] [place] [address]- 3255 Mar, [facility] [place] [facility] [address] [id number] [place] [address]- 6594 Mar, [facility] [place] [facility] [address] [id number] [place] [address]- 3684 Mar, [facility] [place] [facility] [address] [id number] [place] [address]- 0948 Mar, [facility] [place] [facility] [address] [id number] [place] [address]- 4547 Mar, [facility] [place] [facility] [address] [id number] [place] [address]- 1243 Mar, [facility] [place] [facility] [address] [id number] [place] [address]- 5917 Mar, [facility] [place] [facility] [address] [id number] [place] [address]- 8506 Mar, [facility] [place] [facility] [address] [id number] [place] [address]- 1695 04 Mar, 2013 [facility] [place] [facility] [address] [id number] [place] [address]- 8745 Feb, [facility] [place] [facility] [address] [id number] [place] [address]- 8021 22 Feb, 2013 [facility] [place] [facility] [address] [id number] [place] [address]- 7313 Feb, [facility] [place] [facility] [address] [id number], [place] [address]- 8143 20 Feb, 2013 [facility] [place] [facility] [address] [id number] [place] [address]- 5573 Feb, [facility] [place] [facility] [address] [id number], [place] [address]- 4515 19 Feb, 2013 [facility] [place] [facility] [address] [id number], [place] [address]- 5967 15 Feb, 2013 [facility] [place] [facility] [address] [id number], [place] [address]- 2643 14 Feb, 2013 [facility] [place] [facility] [address] [id number], [place] [address]- 8267 14 Feb, 2013 [facility] [place] [facility] [address] [id number], [place] [address]- 9980 13 Feb, 2013 [facility] [place] [facility] [address] [id number], [place] [address]- 0735 13 Feb, 2013 [facility] [place] [facility] [address] [id number], [place] [address]- 9416 12 Feb, 2013 [facility] [place] [facility] [address] [id number], [place] [address]- 5230 12 Feb, 2013 [facility] [place] [facility] [address] [id number], [place] [address] 11 Feb, 2013 [facility] [place] [facility] [address] [id number], [place] [address] 05 Feb, 2013 [facility] [place] [facility] [address] [id number] [place] [address] 05 Feb, 2013 [facility] [address] [id number] [place] [address] 28 Jan, 2013 [facility] [place] [facility] [address] [id number] [place] [address] Jan, [facility] [place] [facility] [address] [id number] [place] [address] Jan, [facility] [place] [facility] [address] [id number] [place] [address] Jan, [facility] [place] [facility] [address] [id number] [place] [address] Jan, [facility] [place] [facility] [address] [id number] [place] [address] Jan, [facility] [place] [facility] [address] [id number] [place] [address] 4628 Jan, [facility] [address] [id number] [place] [address]- 8950 10 Jan, 2013 [facility] [place] [facility] [address] [id number] [place] [address] 1439 10 Jan, 2013 [facility] [place] [facility] [address] [id number] [place] [address] 27 Dec, 2012 [facility] [place] [facility] [address] [id number] [place] [address]- [address]40 20 Sep, 2012 [facility] [place] [facility] [address] [id number] [place] [address]- [address]44 19 Sep, 2012 [facility] [place] [facility] [address] [id number] [place] [address]- [address]43 10 Sep, 2012 [facility] [place] [facility] [address] [id number] [place] [address]- 254 04 Sep, 2012 [facility] [place] [facility] [address] [id number] [place] [address]- 2547 Dec, [facility] [place] [facility] [address] [id number] [place] [address] Nov, [facility] [place] [facility] [address] [id number] [place] [address]- [address]36 Nov, [facility] [place] [facility] [address] [id number] [place] [address]- 0410 Nov, [facility] [place] [facility] [address] [id number] [place] [address]- 2541 Nov, [facility] [place] [facility] [address] [id number] [place] [address]- [address]507 Nov, [facility] [place] [facility] [address] [id number] [place] [address]- 0711 Nov, [facility] [place] [facility] [address] [id number] [place] [address]- [address]990 Nov, [facility] [place] [facility] [address] [id number] [place] [address]- [address]86 Nov, [facility] [place] [facility] [address] [id number] [place] [address]- 3099 Nov, [facility] [place] [facility] [address] [id number] [place] [address]- 2183 Nov, [facility] [place] [facility] [address] [id number] [place] [address] 1168 Oct, [facility] [place] [facility] [address] [id number] [place] [address]- 5281 Oct, [facility] [place] [facility] [address] [id number] [place] [address] 9487 Oct, [facility] [place] [facility] [address] [id number] [place] [address] 9072 Oct, [facility] [place] [facility] [address] [id number] [place] [address] Oct, [facility] [place] [facility] [address] [id number] [place] [address] 5431 Oct, [facility] [address] [id number] [place] [address]- [address]30 Oct, [facility] [place] [facility] [address] [id number] [place] [address]- 5521 Oct, [facility] [place] [facility] [address] [id number] [place] [address] 6615 Sep, [facility] [place] [facility] [address] [id number] [place] [address]- 2584 Sep, [facility] [place] [facility] [address] [id number] [place] [address]- 7444 Sep, [facility] [place] [facility] [address] [id number] [place] [address]- 8366 Sep, [facility] [address] [id number] [place] [address]- 5271 Sep, [facility] [place] [facility] [address] [id number] [place] [address]- 0053 Sep, [facility] [place] [facility] [address] [id number] [place] [address]- [address]407 Sep, [facility] [place] [facility] [address] [id number] [place] [address]- 4945 Sep, [facility] [place] [facility] [address] [id number] [place] [address]- 8631 August, [facility] [place] [facility] [address] [id number] [place] [address]- 5008 August, [facility] [place] [facility] [address] [id number] [place] [address]- 0291 August, [facility] [place] [facility] [address] [id number] [place] [address] August, [facility] [place] [facility] [address] [id number] [place] [address]- 6310 August, [facility] [place] [facility] [address] [id number] [place] [address]- 2935 26 Jul, 2012 [facility] [address] [id number] [place] [address]- [address]049 Jul, [facility] [address] [id number] [place] [address] 2026 Jul, [facility] [address] [id number] [place] [address]- 0995 04 Jul, 2012 [facility] [address] [id number] [place] [address] 0158 Jul, [facility] [address] [id number] [place] [address]- 8445 Jun, [facility] [address] [id number] [place] [address]- 9737 18 Jun, 2012 [facility] [address] [id number] [place] [address]- 2127 15 Jun, 2012 [facility] [address] [id number] [place] [address]- 8203 14 Jun, 2012 [facility] [address] [id number] [place] [address]- 6863 Jun, [facility] [address] [id number] [place] [address]- 9927 Jun, [facility] [address] [id number] [place] [address]- 7964 Jun, [facility] [address] [id number] [place] [address]- 8828 Jun, [facility] [place] [facility] [address] [id number] [place] [address]- 1237 Jun, [facility] [facility] [address] [id number] [place] [address]- [address]606 May, [facility] [address] [id number] [place] [address]- 2340 May, [facility] [address] [id number] [place] [address]- 7673 May, [facility] [address] [id number] [place] [address]- 4194 May, [facility] [address] [facility] [id number] [place] [address]- 4[address] Apr, [facility] [address] [id number] [place] [address]- 6641 Apr, [facility] [address] [id number] [place] [address]- 2138 Apr, [facility] [address] [id number] [place] [address]- 4130 Apr, [facility] [address] [id number] [place] [address]- 0806 Apr, [facility] [address] [id number] [place] [address]- 1558 Apr, [facility] [address] [id number], [place] [address] Apr, [facility] [address] [facility] [id number], [place] [address] Mar, [facility] [address] [place] [id number] Mar, [facility] [address] [id number], [place] [address] Mar, [facility] [address] [id number], [place] [address] Mar, [facility] [address] [id number] [place] [address] Mar, [facility] [address] [id number], [place] [address] Mar, [facility] [address] [id number], [place] [address] Mar, [facility] [place] [facility] [address] [id number] [place] [address] Mar, [facility] [place] [facility] [address] [id number] [place] [address] Mar, [facility] [place] [facility] [address] [id number] [place] [address]36 Mar, [facility] [place] [facility] [address] [id number] [place] [address] Mar, [facility] [place] [facility] [address] [id number] [place] [address] 47[address] Mar, [facility] [place] [facility] [address] [id number] [place] [address] Mar, [facility] [place] [facility] [address] [place] [id number] [address] Mar, [facility] [place] [facility] [address] [id number] [place] [address] Mar, [facility] [place] [facility] [address] [id number] [place] [address] Mar, [facility] [place] [facility] [address] [facility] [id number] [place] [address] 9087 Mar, [facility] [place] [facility] [address] [id number] [place] [address]- [address]36 Feb, [facility] [place] [facility] [address] [id number] [place] [address] 7823 Feb, [facility] [place] [facility] [address] [id number] [place] [address]- 3357 Feb, [facility] [place] [facility] [address] [id number] [place] [address] 1084 Feb, [facility] [place] [facility] [address] [facility] [id number] [place] [address] 6397 Feb, [facility] [place] [facility] [address] [id number] [place] [address] Feb, [facility] [place] [facility] [address] [id number] [place] [address] 3554 Feb, [facility] [place] [facility] [address] [id number] [place] [address]- 3760 Feb, [facility] [place] [facility] [address] [id number] [place] [address]- 0066 Feb, [facility] [place] [facility] [address] [id number] [place] [address]- 9294 Feb, [facility] [place] [facility] [address] [id number] [place] [address]117 Feb, [facility] [place] [facility] [address] [id number] [place] [address] 8343 Feb, [facility] [place] [facility] [address] [id number] [place] [address] 9388 Feb, [facility] [place] [facility] [address] [id number] [place] [address]- 5033 Feb, [facility] [place] [facility] [address] [id number] [place] [address]- 7945 Feb, [facility] [place] [facility] [address] [facility] [id number] [place] [address] 8451 Feb, [facility] [place] [facility] [address] [id number] [place] [address] 1647 Jan, [facility] [place] [facility] [address] [id number] [place] [address] 1573 Jan, [facility] [place] [facility] [address] [id number] [place] [address] 0110 Jan, [facility] [place] [facility] [address] [id number] [place] [address] 1350 Jan, [facility] [place] [facility] [address] [id number] [place] [address]- 8391 Jan, [facility] [place] [facility] [address] [id number] [place] [address]- 2180 Jan, [facility] [place] [facility] [address] [id number] [place] [address]- 8799 Jan, [facility] [place] [facility] [address] [id number] [place] [address]- 5731 Jan, [facility] [place] [facility] [address] [id number] [place] [address]- 5147 Jan, [facility] [place] [facility] [address] [id number] [place] [address]- 4466 Jan, [facility] [place] [facility] [address] [id number] [place] [address]- 6[address] Jan, [facility] [place] [facility] [address] [id number] [place] [address]- 2617 Jan, [facility] [place] [facility] [address] [id number], [place] [address] Jan, [facility] [place] [facility] [address] [id number] [place] [address]- 2292 Jan, [facility] [place] [facility] [address] [id number], [place] [address] 286[address] Jan, [facility] [place] [facility] [address] [id number], [place] [address]- 6510 Jan, [facility] [place] [facility] [address] [id number], [place] [address]- 8832 Jan, [facility] [place] [facility] [address] [id number] [place] [address]- 6506 Dec, [facility] [place] [facility] [address] [id number], [place] [address]- 1167 20 Dec, 2011 [facility] [place] [facility] [address] [id number], [place] [address] 18 Dec, 2011 [facility] [place] [facility] [address] [id number] [place] [address]- 1317 18 Dec, 2011 [facility] [place] [facility] [address] [id number] [place] [address] 2546 10 Dec, 2011 [facility] [place] [facility] [address] [id number] [place] [address] 2546 10 Dec, 2011 [facility] [place] [facility] [address] [id number] [place] [address] 2546 10 Dec, 2011 [facility] [place] [facility] [address] [id number] [place] [address] 2546 07 Dec, 2011 [facility] [place] [facility] [address] [id number] [place] [address]- 9525 30 Nov, 2011 [facility] [place] [facility] [address] [id number] [place] [address]- 7746 Nov, [facility] [place] [facility] [address] [id number] [place] [address]- 6210 Nov, [facility] [place] [facility] [address] [id number] [place] [address] 2540 Nov, [facility] [place] [facility] [address] [id number] [place] [address]- 6404 Nov, [facility] [place] [facility] [address] [id number] [place] [address]- 0988 Nov, [facility] [place] [facility] [address] [id number] [place] [address]- 5016 Oct, [facility] [place] [facility] [address] [id number] [place] [address] 2543 Oct, [facility] [place] [facility] [address] [id number] [place] [address]- 5737 Oct, [facility] [place] [facility] [address] [id number] [place] [address]- 2546 Oct, [facility] [place] [facility] [address] [id number] [place] [address]- 6732 Oct, [facility] [place] [facility] [address] [id number] [place] [address]- 6196 Oct, [facility] [place] [facility] [address] [id number] [place] [address]- 0533 Oct, [facility] [place] [facility] [address] [id number] [place] [address]- 4247 Sep, [facility] [place] [facility] [address] [id number] [place] [address]- 4329 Sep, [facility] [place] [facility] [address] [id number] [place] [address]- 4273 Sep, [facility] [place] [facility] [address] [id number] [place] [address]- 9713 Sep, [facility] [place] [facility] [address] [id number] [place] [address]- 9160 Sep, [facility] [place] [facility] [address] [id number] [place] [address]- 3597 15 Sep, 2011 [facility] [place] [facility] [address] [id number] [place] [address]- 8160 14 Sep, 2011 [facility] [place] [facility] [address] [id number] [place] [address]- 3684 Sep, [facility] [place] [facility] [address] [id number] [place] [address]- 6010 05 Sep, 2011 [facility] [place] [facility] [address] [id number] [place] [address]- 0300 Sep, [facility] [place] [facility] [address] [id number] [place] [address]- 9724 August, [facility] [place] [facility] [address] [id number] [place] [address]- 5322 August, [facility] [place] [facility] [address] [id number] [place] [address]- 2312 14 Aug, 2011 [facility] [place] [facility] [address] [id number] [place] [address]- 4466 August, [facility] [address] [id number] [place] [address] August, [facility] [place] [facility] [address] [id number] [place] [address]- 8239 Jul, [facility] [place] [facility] [address] [id number] [place] [address]- 8081 Jul, [facility] [place] [facility] [address] [id number] [place] [address]- 3758 Jul, [facility] [place] [facility] [address] [id number] [place] [address]- 2042 Jul, [facility] [place] [facility] [address] [id number] [place] [address]- 2674 Jul, [facility] [place] [facility] [address] [id number] [place] [address]- 8008 Jul, [facility] [place] [facility] [address] [id number] [place] [address]- 8476 Jul, [facility] [place] [facility] [address] [id number] [place] [address]- 7586 Jun, [facility] [place] [facility] [address] [id number] [place] [address]- 0142 Jun, [facility] [place] [facility] [address] [id number] [place] [address]- 6240 Jun, [facility] [place] [facility] [address] [id number] [place] [address]- 6046 Jun, [facility] [place] [facility] [address] [id number] [place] [address]- 2665 Jun, [facility] [place] [facility] [address] [id number] [place] [address]- 7331 May, [facility] [place] [facility] [address] [id number] [place] [address]- 7222 May, [facility] [place] [facility] [address] [id number] [place] [address]- 7990 May, [facility] [place] [facility] [address] [id number] [place] [address]- 9636 May, [facility] [place] [facility] [address] [id number] [place] [address]- 4286 May, [facility] [place] [facility] [address] [id number] [place] [address]- 5414 May, [facility] [place] [facility] [address] [id number] [place] [address]- 2808 Apr, [facility] [place] [facility] [address] [id number] [place] [address]- 7956 Mar, [facility] [place] [facility] [address] [id number] [place] [address]- 9256 Feb, [facility] [place] [facility] [address] [id number] [place] [address]- 9687 Feb, [facility] [place] [facility] [address] [id number] [place] [address]- 9921 Feb, [facility] [place] [facility] [address] [id number] [place] [address]- 8292 Feb, [facility] [place] [facility] [address] [facility] [id number] [place] [address]- 7681 Jan, [facility] [place] [facility] [address] [id number] [place] [address]- 1961 Jan, [facility] [place] [facility] [address] [id number] [place] [address]- 5887 Jan, [facility] [place] [facility] [address] [id number] [place] [address]- 1585 24 Jan, 2011 [facility] [place] [facility] [address] [id number] [place] [address]- 2547 14 Jan, 2011 [facility] [place] [facility] [address] [id number] [place] [address]- 8407 Dec, [facility] [address] [id number] [place] [address]- 5525 Oct, [facility] [place] [facility] [address] [id number] [place] [address]- 3736 August, [facility] [address] [id number] [place] 3446 29 Mar, 2010 [facility] [place] [facility] [address] [id number] [place] [address]- 2769 27 Mar, 2010 [facility] [address] [id number] [place] [address]- 4587 16 Mar, 2010 [facility] [place] [facility] [address] [id number] [place] [address]- 7015 15 Mar, 2010 [facility] [address] [id number] [place] [address]- 7258 15 Mar, 2010 [facility] [place] [facility] [address] [id number], [place] [address]- 9274 08 Mar, 2010 [facility] [address] [id number], [place] [address]- 8735 Mar, [facility] [place] [facility] [address] [id number], [place] [address]- 5785 24 Feb, 2010 [facility] [place] [facility] [address] [id number], [place] [address]- 0249 24 Feb, 2010 [facility] [place] [facility] [address] [id number], [place] [address]- 1687 15 Feb, 2010 [facility] [place] [facility] [address] [id number], [place] [address]- 0768 Jan, [facility] [place] [facility] [address] [id number], [place] [address]- 4911 18 Jan, 2010 [facility] [place] [facility] [address] [id number], [place] [address]- 8682 18 Jan, 2010 [facility] [place] [facility] [address] [id number] [place] [address]- 4072 Nov, [facility] [place] [facility] [address] [id number] [place] [address]- 0250 14 Sep, 2009 [facility] [place] [facility] [address] [id number] [place] [address]- 1887 August, [facility] [place] [facility] [address] [id number] [place] [address]- 0361 30 Mar, 2009 [facility] [place] [facility] [address] [id number] [place] [address] 2549 Mar, [facility] [place] [facility] [address] [id number] [place] [address]- 2230 17 Feb, 2009 [facility] [place] [facility] [address] [id number] [place] [address]- 1086 Feb, [facility] [place] [facility] [address] [facility] [id number] [place] [address]- 7874 Feb, [facility] [place] [facility] [address] [id number] [place] [address]- 3599 Feb, [facility] [place] [facility] [address] [facility] [id number] [place] [address]- 4095 06 Feb, 2009 [facility] [place] [facility] [address] [facility] [id number] [place] [address]- 4987 27 Jan, 2009 [facility] [place] [facility] [address] [id number] [place] [address]- 9434 Jan, [facility] [place] [facility] [address] [id number], [place] [address]- 5608 Jan, [facility] [place] [facility] [address] [id number] [place] [address]- 0808 Jan, [facility] [place] [facility] [address] [facility] [id number] [place] [address]- 5456 Nov, [facility] [place] [facility] [address] [id number], [place] [address]- 2671 Sep, [facility] [address] [facility] [id number], [place] [address]- 6607 August, [place] [id number] [facility] [id number], [place] [address]- 1757 Jul, [place] [id number] [facility] [id number], [place] [address]- 4086 May, IMMUNIZATIONS No Known Immunizations SOCIAL HISTORY Never Assessed REASON FOR VISIT f/uHailey GALE PLAN OF CARE VITAL SIGNS Height 64 in 2017-06-10 Weight 152.0 lbs 2017-06-10 Heart Rate 58 bpm 2017-06-10 Respiratory Rate 20 2017-06-10 BMI 26.09 kg/m2 2017-06-10 Blood pressure systolic 116 mmHg 2017-06-10 Blood pressure diastolic 58 mmHg 2017-06-10 MEDICATIONS Medication Instructions Dosage Frequency Start Date End Date Duration Status Spiriva HandiHaler 18 MCG Inhalation Once a day 1 capsule 24h Active Nitroglycerin 0.4 MG Active Calcium Active Eliquis 5 MG Orally 2 times a day 12h Active Toprol XL 25 MG Orally Once a day 1 tablet 24h Active Symbicort 160-4.5 MCG/ACT INHALE 2 PUFFS TWICE DAILY, IN THE MORNING AND IN THE EVENING 90 Active Mupirocin 2 % Externally two times a day 1 application to affected area 12h Active Fluticasone Propionate 50 MCG/ACT Nasally 2 times a day 2 sprays in each nostril 12h 30 days Active Pantoprazole Sodium 40 MG Orally 2 times a day 1 tablet 12h Active Gabapentin 600 MG TAKE 1 TABLET THREE TIMES DAILY 90 Active Diltiazem HCl ER 240 MG Orally Once a day 1 capsule 24h Active Melatonin 5 MG Orally Once a day 1 tablet at bedtime as needed with food 24h Jun, 30 day(s) Active Namenda 10 MG TAKE 1 TABLET EVERY DAY Active Alendronate Sodium 70 MG TAKE 1 TABLET EVERY WEEK Active Cetirizine HCl 10 MG Orally Once a day 1 tablet as needed 24h Active Oxygen 5 inhalation all the time Active Lomotil 2.5-0.025 mg Orally Four times a day TWO TABLETS 6h 30 Active Simvastatin 20mg Orally Once a day 1 tablet in the evening 24h Active Trospium Chloride 20 mg Orally Once a day 1 tablet at bedtime on an empty stomach 24h Active Albuterol Sulfate 2.5 mg /3 mL (0.083 %) 1 Each by Inhalation route every 4 hours for cough and wheeze PRN for wheezing or cough Jun, Not-Taking Omeprazole 40 mg Orally Once a day 1 capsule 24h Active Welchol 625 MG Orally twice a day 2 tablets 12h Active Primidone 250 mg Orally Three times a day 1 tablet 8h 90 days Active Zofran ODT 4 MG Orally every 4 hrs 1 tablet on the tongue and allow to dissolve 4h Jul, 1 days Active Baclofen 20 MG Orally 3 times a day 1 tablet with food or milk 8h 24 May, 2016 30 day(s) Active Remeron 45 MG Orally Once a day at bedtime 1 tablet Feb, 30 days Not-Taking Magnesium Active Benefiber - Active Lamictal 25 MG Orally every night 3 tablets Apr, 30 days Not -Taking Singulair 10 MG Orally Once a day take 1 tablet (10 mg) by oral route once daily in the evening 24h Oct, Active Xifaxan 550 MG Orally Three times a day 1 tablet 8h Active Ropinirole HCl 2 MG TAKE 1 TABLET ONE TIME DAILY AT BEDTIME 90 Active Abilify 10 MG Orally Once a day 1 tablet 24h Active HydrOXYzine HCl 25 MG Orally three times a day as needed 1 tablet Active Vitamin D 50,000 Orally once a week 1 tablet Active RESULTS No Results PROCEDURES Procedure Date Ordered Result Body Site [facility] VISIT ESTABLISHED PATIENT June 10, 2017 INSTRUCTIONS MEDICATIONS ADMINISTERED No Known Medications [...] Knee Surgery 07/16/17 Hospitalization History [facility]- left hand/wrist swelling 10/09/2017
--- OUTSIDE RECORDS SUMMARY | 2018-01-01 12:54 | XMS REPORT ---
Author Author FERNANDO HYDE Organization [facility] Address [address] [place] [address] Phone Unavailable Care Team Providers Care Platform Worker Name Role Phone FERNANDO HYDE Unavailable Unavailable PROBLEMS Type Condition ICD9-CM Code FYK87-BX Code Onset Dates Condition Status SNOMED Code Problem History of common bile duct surgery Z98.89 Active 284309694 Problem Barretts esophagus K22.70 Active 371741384 Problem 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 Active 52314031 Problem Colon polyp K63.5 Active 79705741 Problem Bilateral low back pain without sciatica M54.5 Active 915082530 Problem Screening breast examination Z12.39 Active 704889076 Problem Postmenopausal Z78.0 Active 59988159 Problem Osteopenia M85.80 Active 988630661 Problem Cigarette nicotine dependence without complication F17.210 Active 23607853 Problem Type 2 diabetes mellitus with diabetic peripheral angiopathy without gangrene E11.51 Active 925325610 Problem Vascular dementia without behavioral disturbance F01.50 Active [id number] Problem Unspecified atherosclerosis of k[place]ath arteries of extremities, unspecified extremity I70.209 Active 849958575216050 Problem Arthritis M19.90 Active 5074838 Problem Chronic atrial fibrillation I48.2 Active 606847652 Problem Chronic obstructive pulmonary disease with acute lower respiratory infection J44.0 Active 791834018 Problem Other chronic pancreatitis K86.1 Active 603198967 Problem Stress incontinence of urine N39.3 Active 67402205 Problem Controlled type 2 diabetes mellitus without complication, without long -term current use of insulin E11.9 Active 391681297 Problem Unspecified psychosis F29 Active 91449564 Problem Xeroderma Q80.9 Active 77239993 Problem COPD (chronic obstructive pulmonary disease) J44.9 Active 78877847 Problem Dementia without behavioral disturbance, unspecified dementia type F03.90 Active 57439252 Problem Gastroparesis K31.84 Active 524094714 Problem Type 2 diabetes mellitus with diabetic neuropathy, without long-term current use of insulin E11.40 Active 10114668 Problem Osteoporosis M81.0 Active 66949437 Problem 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 Active 720178106097474 Problem Hyperlipidemia E78.5 Active 52143543 Problem Diabetic polyneuropathy associated with type 2 diabetes mellitus E11.42 Active 86254161 Problem Essential tremor G25.0 Active 54756756 Problem 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 Active 8027385260846 Problem Generalized anxiety disorder F41.1 Active 734465386 Problem Gastroesophageal reflux disease, esophagitis presence not specified K21.9 Active 256335340 Problem 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 I25.118 Active 8010402460575 Problem Postconcussion syndrome F07.81 Active 24569325 Problem Chronic pain syndrome G89.4 Active 645917676 Problem Migraine without aura and without status migrainosus, not intractable G43.009 Active 986529959 Problem Paroxysmal atrial fibrillation I48.0 Active 685547614 Problem Migraine without aura and with status migrainosus, not intractable G43.001 Active 319045271 Problem Cervicalgia M54.2 Active 4644975609166 Problem Acute exacerbation of chronic obstructive pulmonary disease (COPD) J44.1 Active 716878976 Problem Major depressive disorder, recurrent episode, moderate F33.1 Active 973158029 Problem Crohn''s disease without complication, unspecified gastrointestinal tract location K50.90 Active 09917414 Problem Chronic fatigue R53.82 Active 71551801 Problem Bipolar affective disorder, currently depressed, moderate F31.32 Active 529882722 ALLERGIES Substance Reaction Event Type Date Status Penicillin V Potassium rash Drug Allergy Jun, Active Neosporin rash Drug Allergy Jun, Active Ibuprofen rash Drug Allergy Jun, Active Glipizide hives, nausea Drug Allergy Jun, Active ENCOUNTERS Encounter Location Date Diagnosis [facility] [address] [facility] [id number] [id number] Nov, [facility] [id number] [address] Nov, [facility] [address] [facility] [id number] [address] 8786 Oct, [facility] [address] [address] Oct, [facility] [id number] [place] [address] 76260- 3660 Oct, Edema of both legs R60.0 [facility] [id number] [place] [address] 91839- 1515 Oct, [facility] [id number] [place] [address] 02805- 7646 Sep, [facility] [id number] [place] [address] 84512- 3349 Sep, [facility] [id number] [place] [address] 18751- 0267 Sep, [facility] [id number] [place] [address] 64739- 9151 Sep, Encounter for well woman exam with routine gynecological exam Z01.419 ; Screening for STDs (sexually transmitted diseases) Z11.3 ; Screening breast examination Z12.31 and Overweight (BMI 25.0-29.9) E66.3 [facility] [address] [place] [address] 09669- 3390 Sep, [facility] [address] [address]- 6353 Sep, [facility] [id number] [place] [address] 43926- 3841 Sep, [facility] [address] [address] 2209 August, [facility] [id number] [place] [address] 99379- 9931 August, [facility] [address] [address] 6726 August, Type 2 diabetes mellitus with diabetic neuropathy, without long-term current use of insulin E11.40 and Sprain of right ankle, unspecified ligament, initial encounter S93.401A [facility] [id number] [place] [address] 42439- 0400 August, [facility] [id number] [place] [address] 07745- 6695 August, [facility] [id number] [place] [address] 62734- 6335 August, [facility] [id number] [place] [address] 69405- 0299 August, Gastroesophageal reflux disease, esophagitis presence not specified K21.9 [facility] [address] 74579- 6853 August, [facility] [id number] [place] [address] 36457- 5560 August, [facility] [id number] [place] [address] 13562- 4279 August, [facility] [id number] [place] [address] 68207- 5201 August, Type 2 diabetes mellitus with diabetic neuropathy, without long-term current use of insulin E11.40 and Elevated liver enzymes R74.8 [facility] [id number] [place] [address] 19310- 1082 Jul, [facility] [id number] [place] [address] 85520- 0241 Jul, Cough R05 [facility] [id number] [place] [address] 23521- 7759 Jul, [facility] [id number] [place] [address] 97409- 9234 Jul, [facility] [id number] [place] [address] 22709- 3860 Jul, Bipolar affective disorder, currently depressed, moderate F31.32 ; Vascular dementia without behavioral disturbance F01.50 and Generalized anxiety disorder F41.1 [facility] [address] 09712- 5197 Jul, [facility] [address] 23870- 7179 Jul, Type 2 diabetes mellitus with diabetic neuropathy, without long-term current use of insulin E11.40 and Elevated liver enzymes R74.8 [facility] [address] 61726- 4011 Jul, [facility] [address] 22323- 7427 Jul, [facility] [address] 87290- 2422 Jul, [facility] [address] 81469- 3828 Jul, Post-menopausal Z78.0 [facility] [address] 56530- 9277 Jul, Stress incontinence of urine N39.3 [facility] [address] 14322- 0420 Jul, [facility] [id number] [place] [address] 70107- 8720 Jul, [facility] [id number] [place] [address] 62845- 2058 Jul, Stress incontinence of urine N39.3 and Cough R05 [facility] [id number] [place] [address] 80013- 2521 Jul, [facility] [address] 88587- 5936 Jul, [facility] [address] 27069- 8622 Jul, [facility] [address] 84884- 3172 Jul, Gastroesophageal reflux disease, esophagitis presence not specified K21.9 [facility] [id number] [place] [address] 23739- 9327 Jun, Diabetic polyneuropathy associated with type 2 diabetes mellitus E11.42 [facility] [id number] [place] [address] 29961- 5480 Jun, Diabetic polyneuropathy associated with type 2 diabetes mellitus E11.42 ; 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 I25.118 and Paroxysmal atrial fibrillation I48.0 [facility] [address] 46303- 9806 Jun, [facility] [address] 88776- 9673 Jun, [facility] [address] 93951- 4644 Jun, Gastroenteritis K52.9 [facility] [address] 54238- 9879 Jun, Gastroenteritis K52.9 [facility] [id number] [place] [address] 16885- 1905 Jun, [facility] [id number] [place] [address] 00158- 6080 Jun, [facility] [id number] [place] [address] 42664- 1550 Jun, Sprain of right ankle, unspecified ligament, [...] K50.90 [facility] [id number] [place] [address] 92664 -5781 17 Jun, 2017 Cough R05 and Chronic obstructive pulmonary disease with acute lower respiratory infection J44.0 [facility] [address] [address]- 5388 Jun, [facility] [address] [place] [address] 15532- 6522 Jun, Coughing R05 ; Unspecified atherosclerosis of klamath arteries of extremities, unspecified extremity I70.209 ; Type 2 diabetes mellitus with diabetic peripheral angiopathy without gangrene E11.51 ; Crohn''s disease without complication, unspecified gastrointestinal tract location K50.90 ; Other chronic pancreatitis K86.1 and Chronic atrial fibrillation I48.2 [facility] [address] [place] [address] 48137 -7588 Jun, [facility] [address] [place] [address] 82077- 4653 Jun, Bipolar affective disorder, currently depressed, moderate F31.32 ; Vascular dementia without behavioral disturbance F01.50 and Generalized anxiety disorder F41.1 [facility] [address] [place] [address] 82311- 6748 May, Generalized anxiety disorder F41.1 [facility] [address] [place] [address] 53919- 3816 May, [facility] [address] [place] [address] 83495- 1319 May, [facility] [address] [place] [address] 00629- 4704 15 May, 2017 Coughing R05 [facility] [address] [place] [address] 83432- 0240 May, [facility] [address] [place] [address] 21942- 5652 May, Bipolar affective disorder, currently depressed, moderate F31.32 ; Vascular dementia without behavioral disturbance F01.50 and Generalized anxiety disorder F41.1 [place] [id number] [place] [address] 64811- 5003 Apr, Generalized anxiety disorder F41.1 [facility] [id number] [place] [address] 73780- 7088 Apr, [facility] [id number] [place] [address] 51139- 7465 Apr, Vascular dementia without behavioral disturbance F01.50 ; Generalized anxiety disorder F41.1 and Bipolar affective disorder, currently depressed, moderate F31.32 [place] [id number] [place] [address] 66790- 7898 Apr, Generalized anxiety disorder F41.1 [facility] [id number] [place] [address] 55677 -6951 Apr, Cough R05 and Acute exacerbation of chronic obstructive pulmonary disease (COPD) J44.1 [place] [address] 98222- 0329 Apr, [facility] [id number] [place] [address] 42321 -6808 Mar, Cough R05 and Cigarette nicotine dependence without complication F17.210 [place] [id number] [place] [address] 43315- 1945 Mar, [place] [id number] [place] [address] 54752- 9047 Feb, Generalized anxiety disorder F41.1 ; Major depressive disorder, recurrent episode, moderate F33.1 ; Vascular dementia without behavioral disturbance F01.50 and Unspecified psychosis F29 [place] [id number] [place] [address] 53466- 2857 Feb, [place] [id number] [place] [address] 08420- 4457 Feb, [facility] [id number] [place] [address] 76849- 4460 Feb, Generalized anxiety disorder F41.1 [place] [id number] [place] [address] 00735- 4738 14 Feb, 2017 Generalized anxiety disorder F41.1 [place] [address] 51572- 0703 Feb, Dizziness R42 ; Chronic fatigue R53.82 ; Postconcussion syndrome F07.81 ; Fall, initial encounter W19.XXXA and Disorientation R41.0 [place] [address] 42917- 6235 Feb, Postconcussion syndrome F07.81 ; Injury of head, initial encounter S09.90XA ; Fall, initial encounter W19.XXXA ; Disorientation R41.0 and Acute cystitis with hematuria N30.01 [place] [id number] [place] [address] 28718- 2302 Jan, Gastroesophageal reflux disease, esophagitis presence not specified K21.9 ; Post-menopausal Z78.0 and Migraine without aura and without status migrainosus, not intractable G43.009 [place] [id number] [place] [address] 81539- 5389 Jan, [place] [address] 38179- 3012 Jan, Generalized anxiety disorder F41.1 ; Major depressive disorder, recurrent episode, moderate F33.1 ; Vascular dementia without behavioral disturbance F01.50 and Unspecified psychosis F29 [place] [id number] [place] [address] 59197- 8231 Jan, Pneumonia of left lower lobe due to infectious organism J18.1 [place] [address] 55120- 2712 Jan, Migraine without aura and with status migrainosus, not intractable G43.001 [facility] IN [facility] [id number] [place] [address] 46841 -0476 Jan, Migraine without aura and without status migrainosus, not intractable G43.009 [facility] [address] [place] [address] 26683- 8136 19 Dec, 2016 Hematoma T14.8 [facility] [id number] [place] [address] 53008- 9670 12 Dec, 2016 [facility] [id number] [place] [address] 14256 -4729 Nov, Fatigue, unspecified type R53.83 [facility] [id number] [place] [address] 39809- 9238 Nov, Scabies B86 and 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 I25.118 [facility] [id number] [place] [address] 80904- 4733 Nov, [place] [id number] [place] [address] 90311- 5060 Nov, [facility] [id number] [place] [address] 86350- 1676 Oct, [facility] [id number] [place] [address] 09083- 7597 Oct, Generalized anxiety disorder F41.1 and Major depressive disorder, recurrent episode, moderate F33.1 [place] [id number] [place] [address] 23298- 9960 Oct, Cramp of both lower extremities R25.2 [facility] [id number] [place] [address] 66866- 5535 Oct, Leg cramps R25.2 [place] [id number] [place] [address] 58769- 7716 Oct, Chronic pain syndrome G89.4 [place] [id number] [place] [address] 54537- 3720 Oct, [facility] [address] 28252- 5127 14 Oct, 2016 [facility] [address] [place] [address] 95855- 9650 11 Oct, 2016 Routine gynecological examination Z01.419 and Screening for breast cancer Z12.31 [place] [id number] [place] [address] 26817- 0375 28 Sep, 2016 Diarrhea R19.7 [place] [id number] [place] [address] 09442- 3212 26 Sep, 2016 Back pain M54.9 [place] [id number] [place] [address] 58703- 5753 Sep, [place] [id number] [place] [address] 13973- 7205 Sep, [facility] [place] [id number] [place] [address] 13982 -4800 August, Xeroderma Q80.9 [place] [id number] [place] [address] 84901- 7233 August, Dementia without behavioral disturbance, unspecified dementia type F03.90 [place] [id number] [place] [address] 64473- 6488 August, Chronic pain syndrome G89.4 [place] [id number] [place] [address] 21751- 4658 August, [place] [id number] [place] [address] 08492- 9940 August, Hyperlipidemia E78.5 ; Other fatigue R53.83 and Other specified hypotension I95.89 [facility] [id number] [place] [address] 12457 -1789 August, Dysuria R30.0 ; Other fatigue R53.83 and Other specified hypotension I95.89 [place] [id number] [place] [address] 56711- 7892 August, [place] [id number] [place] [address] 69560- 9696 Jul, Pain in left knee M25.562 and Gastroenteritis K52.9 [place] [address] 03846- 5802 Jul, [place] [address] 88014- 3100 Jul, Diarrhea R19.7 [facility] [address] 53571 -4911 Jul, Spider bite, accidental or unintentional, initial encounter T63.301A [place] [address] 22968- 5927 Jul, Primary osteoarthritis of right knee M17.11 and Arthritis M19.90 [place] [address] 06662- 7535 Jul, Generalized anxiety disorder F41.1 and Major depressive disorder, recurrent episode, moderate F33.1 [place] [address] 85851- 3299 Jul, Type 2 diabetes mellitus with diabetic polyneuropathy E11.42 and Temporal headache R51 [place] [id number] [place] [address] 04273- 5351 06 Jul, 2016 Back pain M54.9 [place] [address] 66392- 9455 Jul, [place] [id number] [place] [address] 72234- 4836 Jul, [place] [address] 45726- 6131 Jun, Nausea R11.0 [facility] [id number] [place] [address] 64458 -0957 Jun, Acute suppurative otitis media of both ears without spontaneous rupture of tympanic membranes, recurrence not specified H66.003 and COPD exacerbation J44.1 [facility] [id number] [place] [address] 18203- 2175 Jun, Generalized anxiety disorder F41.1 [facility] [id number] [place] [address] 23612- 4694 16 Jun, 2016 [facility] [address] 97367 -9349 Jun, [facility] [address] 82157 -1762 Jun, Shortness of breath R06.02 and COPD exacerbation J44.1 [place] [address] 78973- 4298 10 Jun, 2016 Eczema, unspecified type L30.9 [place] [address] 84242- 3186 Jun, [place] [address] 63669- 7991 May, [facility] [address] 65927- 5309 May, Muscle cramping R25.2 [place] [id number] [place] [address] 19673- 9610 May, [place] [address] 60848- 6494 Apr, Diarrhea R19.7 [facility] [id number] [place] [address] 28046- 6758 Apr, [place] [address] 34998- 8151 Apr, Chronic pain syndrome G89.4 [place] [id number] [place] [address] 01600- 6086 Apr, Cramp of both lower extremities R25.2 and Vascular dementia without behavioral disturbance F01.50 [place] [id number] [place] [address] 55397- 4862 Apr, Type 2 diabetes mellitus with diabetic polyneuropathy E11.42 and Cigarette nicotine dependence without complication F17.210 [place] [address] 76334- 7961 Mar, Generalized anxiety disorder F41.1 [place] [address] 60237- 0771 Feb, Generalized anxiety disorder F41.1 and Major depressive disorder, recurrent episode, moderate F33.1 [place] [address] 68667- 0494 Feb, [facility] [address] 24509 -9226 Feb, Dysuria R30.0 and Acute cystitis with hematuria N30.01 [place] [address] 13363- 7892 Jan, [place] [address] 64931- 2878 Jan, [place] [address] 28431- 3929 Jan, [place] [address] 29219- 4056 Jan, [facility] [address] 51921 -4250 Jan, Wasp sting, accidental or unintentional, initial encounter T63.461A [place] [address] 32849- 2421 Jan, Encounter for immunization Z23 [place] [address] 77352- 8754 Jan, [place] [address] 18269- 1870 Jan, [facility] [address] [address]- 3313 28 Dec, 2015 Generalized anxiety disorder F41.1 and Major depressive disorder, recurrent episode, moderate F33.1 [facility] [id number] [address]- 1540 21 Dec, 2015 Routine gynecological examination Z01.419 ; Postmenopausal Z78.0 ; Screening breast examination Z12.39 ; Osteopenia M85.80 and Breast cancer screening Z12.39 [facility] [id number] [place] [address] 24314- 3595 20 Dec, 2015 [facility] [id number] [place] [address] 64996- 8567 19 Dec, 2015 [facility] [id number] [place] [address] [phone] 16 Dec, 2015 [facility] [id number] [place] [address] [phone] 16 Dec, 2015 [facility] [id number] [place] [address] [phone] 14 Dec, 2015 [facility] [id number] [place] [address] [address]- 3803 06 Dec, 2015 [facility] [id number] [place] [address] 50639- 2987 Nov, [facility] [id number] [place] [address] 16367 -8896 Nov, Cough R05 ; Other viral agents as the cause of diseases classified elsewhere B97.89 and Acute upper respiratory infection, unspecified J06.9 [facility] [id number] [place] [address] 89108- 0514 Nov, [facility] [id number] [place] [address] 42897- 0342 Nov, [facility] [id number] [place] [address] 02928- 5483 Nov, [facility] [address] [address]- 5531 Nov, [facility] [id number] [place] [address] 01779- 0310 Nov, [facility] [address] [address]- 7787 Oct, [facility] [id number] [place] [address] 35136- 4226 Oct, [facility] [id number] [place] [address] 99681- 1719 Oct, [facility] [id number] [place] [address] 34024- 1464 Oct, Chronic pain syndrome G89.4 [facility] [id number] [place] [address] 96584- 6929 Sep, Generalized anxiety disorder F41.1 and Major depressive disorder, recurrent episode, moderate F33.1 [facility] [id number] [place] [address] 87201- 6047 Sep, [facility] [id number] [place] [address] 42284- 2384 Sep, [facility] [id number] [place] [address] 16994- 4626 Sep, Generalized anxiety disorder F41.1 [facility] [address] [place] [address] 11594- 7037 Sep, Cramp of both lower extremities R25.2 and Cervicalgia M54.2 [facility] [address] [place] [address] 53255- 2454 Sep, Generalized anxiety disorder F41.1 [facility] [address] [address]- 7895 Sep, [facility] [id number] [place] [address] 65566 -6830 August, Rash R21 ; Itching L29.9 and Allergic response, subsequent encounter T78.40XD [facility] [facility] [id number] [place] [address] 48991- 9411 August, Primary insomnia F51.01 [facility] [id number] [place] [address] 54861 -9973 August, Rash R21 ; Itching L29.9 and Allergic response, initial encounter T78.40XA [facility] [id number] [place] [address] 32105- 8364 August, [place] [address] 27538- 5205 August, Cramp of both lower extremities R25.2 [facility] [id number] [place] [address] 96415- 5545 August, Back pain M54.9 [facility] [id number] [place] [address] 63171- 3234 August, [facility] [id number] [place] [address] 30746- 0359 August, [facility] [id number] [place] [address] 96798 -4918 August, Cramp of both lower extremities R25.2 [facility] [id number] [place] [address] 21357- 1357 August, [facility] [id number] [place] [address] 92753- 0047 August, Syncope R55 ; Paroxysmal atrial fibrillation I48.0 ; Dementia without behavioral disturbance, unspecified dementia type F03.90 and Chronic pain syndrome G89.4 [facility] [facility] [id number] [place] [address] 93068- 6544 August, Type 2 diabetes mellitus with diabetic polyneuropathy E11.42 and Syncope R55 [facility] [address] [place] [address]- 3348 Jul, [facility] [address] [facility] [id number] [address]- 8286 Jul, [facility] [address] [facility] [id number] [address]- 8621 Jul, [facility] [address] [facility] [id number] [address]- 3268 Jul, [facility] [address] [facility] [id number] [address]- 1768 Jul, [facility] [address] [place] [address] 53008- 8766 Jul, UTI (urinary tract infection) N39.0 [facility] [address] [address]- 1332 Jul, [facility] [address] [address]- 7061 18 Jul, 2015 Major depressive disorder, recurrent episode, moderate F33.1 and Generalized anxiety disorder F41.1 [facility] [address] [address]- 8456 Jul, Generalized anxiety disorder F41.1 [facility] [address] [address]- 5359 14 Jul, 2015 Diarrhea R19.7 [facility] [address] [address]- 7760 Jul, [facility] [address] [facility] [id number] [address]- 0307 Jun, [facility] [address] [address]- 4782 Jun, Eczema L30.9 [facility] [address] [address]- 2997 Jun, [facility] [address] [address]- 6524 Jun, COPD (chronic obstructive pulmonary disease) J44.9 [facility] [address] [address]- 0002 Jun, [facility] [address] [address]- 2499 Jun, Major depressive disorder, recurrent episode, moderate F33.1 and Generalized anxiety disorder F41.1 [facility] [address] [place] [address] 06900- 7761 May, [facility] [address] [place] [address] 47601- 2987 May, UTI (urinary tract infection) N39.0 [facility] [address] [place] [address] 89735- 6280 May, [facility] [address] [place] [address] 71418- 6886 May, [facility] [address] [address]- 2166 May, [facility] [address] [place] [address] 93265- 2416 May, [facility] [address] [address]- 2641 Apr, Major depressive disorder, recurrent episode, moderate F33.1 and Generalized anxiety disorder F41.1 [facility] [address] [address]- 7236 Apr, COPD (chronic obstructive pulmonary disease) J44.9 [facility] [address] [address]- 3295 Apr, [facility] [address] [address]- 0710 Apr, Atrial flutter I48.92 [facility] [id number] [address]- 3849 Apr, [facility] [address] [place] [address] 72639- 8758 Apr, [facility] [id number] [place] [address] 62847- 1737 Mar, [facility] [id number] [place] [address] 81691- 7267 Mar, [facility] [id number] [place] [address] 82378- 6943 Mar, [facility] [id number] [place] [address] 98360- 8298 Mar, Hyperlipidemia E78.5 ; Type 2 diabetes mellitus with diabetic polyneuropathy E11.42 ; Major depressive disorder, recurrent episode, moderate F33.1 and Chronic pain syndrome G89.4 [facility] [id number] [place] [address] 48103- 8127 Mar, [facility] [id number] [place] [address] 55273- 8466 Mar, [facility] [id number] [place] [address] 94241- 7001 Mar, [facility] [id number] [address]- 0337 Mar, [facility] [id number] [place] [address] 29509- 1486 Feb, COPD (chronic obstructive pulmonary disease) J44.9 and Back pain M54.9 [facility] [address] [address]- 9275 Feb, [facility] [id number] [place] [address] 15993- 9184 Feb, [facility] [address] [address]- 3691 Feb, [facility] [id number] [address]- 6945 Feb, [facility] [id number] [place] [address] 50015- 6796 Feb, [facility] [id number] [place] [address] 80224- 6833 Feb, [facility] [id number] [place] [address] 04427- 3620 Feb, [facility] [id number] [place] [address] 01696- 5240 Feb, [facility] [id number] [place] [address] 33447- 1168 Feb, Diabetes E11.9 ; Back pain M54.9 and COPD (chronic obstructive pulmonary disease) J44.9 [facility] [id number] [place] [address] 70329- 5631 Jan, [facility] [id number] [place] [address] 55982- 9547 Jan, Major depression, recurrent F33.9 and Generalized anxiety disorder F41.1 [facility] [id number] [place] [address] 12229- 8310 Jan, Chronic pain G89.29 [facility] [id number] [address]- 6048 Jan, [facility] [id number] [place] [address] 89137- 4191 Jan, [facility] [id number] [place] [address] 27848- 6459 Jan, [facility] [id number] [place] [address] 75087- 8308 Jan, [facility] [address] [address]- 5891 Jan, Nicotine dependence F17.200 [facility] [id number] [place] [address]- 5629 Jan, Nicotine dependence F17.200 and Back pain M54.9 [facility] [address] 61456- 4674 Jan, [facility] [id number] [place] [address] 73110- 3368 28 Dec, 2014 [facility] [address] 86393- 2824 25 Dec, 2014 Anxiety, generalized 300.02 and Major depression, recurrent 296.30 [facility] [address] 72158- 1496 24 Dec, 2014 [facility] [id number] [place] [address] 34184- 0158 21 Dec, 2014 [facility] [id number] [place] [address] 65559- 4819 17 Dec, 2014 [facility] [id number] [place] [address] 38448- 9431 15 Dec, 2014 [facility] [id number] [place] [address] 12971- 0362 14 Dec, 2014 [facility] [id number] [place] [address] 81710- 3007 11 Dec, 2014 [facility] [id number] [place] [address] 71374- 4922 10 Dec, 2014 [facility] [id number] [place] [address] 76831- 0180 08 Dec, 2014 Skin tear 879.8 [facility] [address] 24779- 9628 08 Dec, 2014 Routine gynecological examination V72.31 ; Breast cancer screening V76.10 and Family history of breast cancer in first degree relative V16.3 [facility] [id number] [place] [address] 10292- 7249 03 Dec, 2014 [facility] [address] [address]- 5320 Dec, [facility] [id number] [place] [address] 65154- 1902 Nov, [facility] [id number] [place] [address] 35936- 3694 Nov, [facility] [id number] [place] [address] 97663- 7982 Nov, Poor balance 781.99 and Vascular dementia, uncomplicated 290.40 [facility] [id number] [place] [address] 04345- 3357 Nov, [facility] [id number] [place] [address] 56149- 0532 Nov, Major depression, recurrent 296.30 and Anxiety, generalized 300.02 [facility] [id number] [place] [address] 89173- 7186 Nov, [facility] [id number] [place] [address] 90986- 9790 Nov, [facility] [id number] [place] [address] 10201- 7387 Nov, [facility] [address] [address]- 3183 Nov, [facility] [address] [place] [address] 61343- 3361 Nov, Vascular dementia, uncomplicated 290.40 and Lumbago 724.2 [facility] [address] [address]- 9785 Nov, [facility] [address] [place] [address] 49249- 7300 Nov, [facility] [address] [address]- 9617 Nov, [facility] [id number] [address]- 7111 Oct, [facility] [address] [address]- 6453 Oct, [facility] [address] [address]- 9248 Oct, [facility] [id number] [place] [address] 35513- 0350 Oct, COPD (chronic obstructive pulmonary disease) 496 and Hyperlipidemia 272.4 [facility] [address] [place] [address] 25967- 3127 Oct, Major depression, recurrent 296.30 and Anxiety, generalized 300.02 [facility] [id number] [address]- 7341 Oct, [facility] [id number] [address]- 9690 Oct, [facility] [address] [address]- 4706 Oct, [facility] [address] [address]- 6610 Sep, Lumbago 724.2 and Anxiety state, unspecified 300.00 [facility] [address] [address]- 0636 Sep, [facility] [address], [place] [address]- 5402 Sep, [facility] [address] [address]- 9103 August, [facility] [address] [address]- 5340 August, Major depression, recurrent 296.30 ; Anxiety, generalized 300.02 and No condition on [place] II V71.09 [facility] [address] [address]- 7579 August, [facility] [place] [facility] [address] [id number] [place] [address]- 1465 August, [facility] [place] [facility] [address] [id number] [place] [address]- 9637 29 Jul, 2014 [facility] [place] [facility] [address] [id number] [place] [address]- 7587 14 Jul, 2014 [facility] [place] [facility] [address] [id number] [place] [address]- 7977 Jul, [facility] [place] [facility] [address] [id number] [place] [address]- 6633 30 Jun, 2014 [facility] [place] [facility] [address] [id number] [place] [address]- 5520 30 Jun, 2014 [facility] [place] [facility] [address] [id number] [place] [address]- 1526 Jun, [facility] [place] [facility] [address] [id number] [place] [address]- 8150 Jun, [facility] [place] [facility] [address] [id number] [place] [address]- 9809 Jun, [facility] [place] [facility] [address] [id number] [place] [address]- 5103 Jun, [facility] [place] [facility] [address] [id number] [place] [address]- 8754 23 Jun, 2014 [facility] [place] [facility] [address] [id number] [place] [address]- 9401 17 Jun, 2014 [facility] [place] [facility] [address] [id number] [place] [address]- 1565 13 Jun, 2014 [facility] [place] [facility] [address] [id number] [place] [address]- 6966 13 Jun, 2014 [facility] [place] [facility] [address] [id number] [place] [address]- 2589 10 Jun, 2014 [facility] [place] [facility] [address] [id number] [place] [address]- 1395 10 Jun, 2014 [facility] [place] [facility] [address] [id number] [place] [address]- 4667 07 Jun, 2014 [facility] [place] [facility] [address] [id number] [place] [address]- 6978 07 Jun, 2014 [facility] [place] [facility] [address] [facility] [id number] [place] [address]- 1930 02 Jun, 2014 [facility] [place] [facility] [address] [id number] [place] [address]- 4335 Jun, 2014 [facility] [place] [facility] [address] [id number] [place] [address]- 9246 May, 2014 [facility] [place] [facility] [address] [facility] [id number] [place] [address]- 2684 May, 2014 [facility] [place] [facility] [address] [facility] [id number] [place] [address]- 9691 20 May, 2014 [facility] [place] [facility] [address] [facility] [id number] [place] [address]- 7163 May, 2014 [facility] [place] [facility] [address] [facility] [id number] [place] [address]- 9571 May, 2014 [facility] [place] [facility] [address] [facility] [id number] [place] [address]- 9774 20 May, 2014 [facility] [place] [facility] [address] [facility] [id number] [place] [address]- 5118 19 May, 2014 [facility] [place] [facility] [address] [facility] [id number] [place] [address]- 8062 12 May, 2014 [facility] [place] [facility] [address] [id number] [place] [address]- 2219 May, 2014 [facility] [place] [facility] [address] [facility] [id number] [place] [address]- 7739 May, 2014 [facility] [place] [facility] [address] [facility] [id number] [place] [address]- 0152 May, [facility] [place] [facility] [address] [id number] [place] [address]- 9793 May, [facility] [place] [facility] [address] [id number] [place] [address]- 2702 May, [facility] [place] [facility] [address] [id number] [place] [address]- 5353 May, [facility] [place] [facility] [address] [id number] [place] [address]- 1259 Apr, [facility] [place] [facility] [address] [id number] [place] [address]- 8375 Apr, [facility] [place] [facility] [address] [id number] [place] [address]- 8056 Apr, [facility] [place] [facility] [address] [id number] [place] [address]- 7067 Apr, [facility] [place] [facility] [address] [id number] [place] [address]- 9641 Apr, [facility] [place] [facility] [address] [id number] [place] [address]- 9049 Apr, [facility] [place] [facility] [address] [id number] [place] [address]- 9818 Apr, [facility] [place] [facility] [address] [id number] [address]- 5213 Apr, [facility] [place] [facility] [address] [id number][place] [address]- 8084 Apr, [facility] [place] [facility] [address] [id number][place] [address]- 7682 Apr, [facility] [place] [facility] [address] [id number][place] [address]- 7651 Apr, [facility] [place] [facility] [address] [id number] [place] [address]- 4148 Apr, [facility] [place] [facility] [address] [id number] [place] [address]- 9678 31 Mar, 2014 [facility] [address] [id number] [place] [address]- 7788 31 Mar, 2014 [facility] [place] [facility] [address] [id number] [place] [address]- 9646 30 Mar, 2014 [facility] [place] [facility] [address] [id number] [place] [address]- 0856 30 Mar, 2014 [facility] [place] [facility] [address] [id number] [place] [address] Mar, [facility] [place] [facility] [address] [id number] [place] [address] Mar, [facility] [place] [facility] [address] [id number] [place] [address] Mar, [facility] [place] [facility] [address] [id number] [place] [address] Mar, [facility] [address] [id number] [place] [address] 15 Mar, 2014 [facility] [place] [facility] [address] [id number] [place] [address] 15 Mar, 2014 [facility] [address] [id number] [place] [address] 15 Mar, 2014 [facility] [place] [facility] [address] [id number] [place] [address]- [address]10 15 Mar, 2014 [facility] [place] [facility] [address] [id number] [place] [address] 1616 15 Mar, 2014 [facility] [place] [facility] [address] [id number] [place] [address] 15 Mar, 2014 [facility] [place] [facility] [address] [id number] [place] 08 Mar, 2014 [facility] [place] [facility] [address] [id number] [place] [address] Mar, [facility] [place] [facility] [address] [id number] [place] [address] Mar, [facility] [place] [facility] [address] [id number] [place] [address]096 Mar, [facility] [place] [facility] [address] [id number] [place] [address] Mar, [facility] [place] [facility] [address] [id number] [place] [address] Mar, [facility] [place] [facility] [address] [id number] [place] [address] Feb, [facility] [place] [facility] [address] [id number] [place] [address]- [address] Feb, [facility] [place] [facility] [address] [id number] [place] [address] Feb, [facility] [place] [facility] [address] [id number] [place] [address] Feb, [facility] [place] [facility] [address] [id number] [place] [address] Feb, [facility] [place] [facility] [address] [id number][place] [address] Feb, [facility] [place] [facility] [address] [id number][place] [address] Feb, [facility] [place] [facility] [address] [id number][place] [address] Feb, [facility] [place] [facility] [address] [id number] [place] [address] Feb, [facility] [place] [facility] [address] [id number][place] [address] Feb, [facility] [place] [facility] [address] [id number][place] [address] Feb, [facility] [place] [facility] [address] [id number][place] [address] Feb, [facility] [place] [facility] [address] [id number] [place] [address] Feb, [facility] [place] [facility] [address] [id number][place] [address] Feb, [facility] [place] [facility] [address] [id number] [place] [address] Feb, [facility] [place] [facility] [address] [id number][place] [address] Feb, [facility] [place] [facility] [address] [id number] [place] [address] Feb, [facility] [place] [facility] [address] [id number] [place] [address] Jan, [facility] [place] [facility] [address] [id number][place] [address] Jan, [facility] [place] [facility] [address] [id number][place] [address] Jan, [facility] [place] [facility] [address] [id number][place] [address] Jan, [facility] [place] [facility] [address] [facility] [id number][place] [address] Jan, [facility] [place] [facility] [address] [id number][place] [address] Jan, [facility] [place] [facility] [address] [id number][place] [address] Jan, [facility] [place] [facility] [address] [id number][place] [address] Jan, [facility] [place] [facility] [address] [facility] [id number][place] [address] Jan, [facility] [place] [facility] [address] [facility] [id number][place] [address] Jan, [facility] [place] [facility] [address] [id number] [place] [address] Jan, [facility] [facility] [address] [id number] [place] [address] Dec, [facility] [place] [facility] [address] [id number] [place] [address] Dec, [facility] [place] [facility] [address] [id number] [place] [address] 7063 Nov, [facility] [place] [facility] [address] [id number] [place] [address] 0988 Nov, [facility] [place] [facility] [address] [id number] [place] [address] 9919 Nov, [facility] [place] [facility] [address] [id number] [place] [address]- 3883 Nov, [facility] [place] [facility] [address] [id number] [place] [address] 8508 Nov, [facility] [place] [facility] [address] [id number] [place] [address]- 5209 Nov, [facility] [place] [facility] [address] [id number] [place] [address]- 1458 Nov, [facility] [place] [facility] [address] [id number] [place] [address]- 8611 Oct, [facility] [place] [facility] [address] [id number] [place] [address]- 8064 Oct, [facility] [place] [facility] [address] [id number] [place] [address]- 8467 Oct, [facility] [place] [facility] [address] [id number] [place] [address]- 1665 Oct, [facility] [place] [facility] [address] [id number] [place] [address]- 5281 Sep, [facility] [place] [facility] [address] [id number] [place] [address] 5[address] Sep, [facility] [place] [address] [id number] [place] [address]- 0057 Sep, [facility] [place] [address] [id number] [place] [address]- 3269 Sep, [facility] [place] [facility] [address] [id number] [place] [address]- 2453 Sep, [facility] [place] [address] [id number] [place] [address]- 4007 Sep, [facility] [place] [address] [id number] [place] [address]- 2263 Sep, [facility] [place] [address] [id number] [place] [address]- 5700 Sep, [facility] [place] [facility] [address] [id number] [place] [address]- 2478 Sep, [facility] [address] [id number] [place] [address]- 0813 Sep, [facility] [address] [id number] [place] [address]- 3768 Sep, [facility] [address] [id number] [place] [address]- 2139 Sep, [facility] [address] [id number], [place] [address]- 8385 Sep, [facility] [address] [id number][place] [address]- 9747 Sep, [facility] [address] [id number] [place] [address]- 7144 August, [facility] [address] [id number] [place] [address]- 3368 August, [facility] [address] [id number] [place] [address]- 5998 August, [facility] [place] [address] [id number] [place] [address]- 9337 August, [facility] [address] [id number] [place] [address]- 0878 August, [facility] [address] [id number] [place] [address] 3544 August, [facility] [address] [id number] [place] [address]- 1675 August, [facility] [address] [id number] [place] [address] 1965 August, [facility] [address] [id number] [place] [address]- 0601 August, [facility] [address] [id number] [place] [address] 5184 August, [facility] [address] [id number] [place] [address]- 4381 August, [facility] [address] [id number] [place] [address]- 1551 August, [facility] [address] [id number] [place] [address]- 5533 August, [facility] [address] [id number] [place] [address]- 2264 August, [facility] [address] [id number] [place] [address]- 6467 August, [facility] [address] [id number] [place] [address]- 4829 August, [facility] [address] [id number] [place] [address]- 7286 August, [facility] [address] [id number] [place] [address]- 0663 August, [facility] [address] [id number] [place] [address]- 1232 August, [facility] [address] [id number] [place] [address]- 3574 Jul, [facility] [address] [id number] [place] [address]- 8993 Jul, [facility] [address] [id number] [place] [address]- 7536 Jul, [facility] [address] [id number] [place] [address]- 2021 Jul, [facility] [address] [id number] [place] [address]- 3584 Jun, [facility] [address] [id number] [place] [address]- 2948 Jun, [facility] [address] [id number] [place] [address]- 2212 Jun, [facility] [address] [id number] [place] [address]- 2457 Jun, [facility] [address] [id number] [place] [address]- 1574 Jun, [facility] [address] [id number] [place] [address]- 5899 Jun, [facility] [address] [id number] [place] [address]- 3529 Jun, [facility] [address] [id number] [place] [address]- 3985 Jun, [facility] [address] [id number] [place] [address]- 9700 Jun, [facility] [address] [id number] [place] [address]- 2416 Jun, [facility] [address] [id number] [place] [address]- 6775 May, [facility] [address] [id number] [place] [address]- 2058 May, [facility] [address] [id number] [place] [address]- 2666 May, [facility] [address] [id number] [place] [address]- 1656 May, [facility] [address] [facility] [id number] [place] [address]- 2996 May, [facility] [address] [id number] [place] [address]- 4789 May, [facility] [address] [id number] [place] [address]- 4956 20 May, 2013 [facility] [address] [facility] [id number] [place] [address]- 5691 19 May, 2013 [facility] [address] [facility] [id number] [place] [address]- 0157 19 May, 2013 [facility] [address] [facility] [id number] [place] [address]- 7670 18 May, 2013 [facility] [address] [facility] [id number] [place] [address]- 8552 18 May, 2013 [facility] [address] [facility] [id number] [place] [address]- 1277 17 May, 2013 [facility] [address] [facility] [id number] [place] [address]- 0443 11 May, 2013 [facility] [address] [facility] [id number] [place] [address]- 2545 11 May, 2013 [facility] [address] [facility] [id number] [place] [address]- 6480 10 May, 2013 [facility] [address] [facility] [id number] [place] [address]- 2546 07 May, 2013 [facility] [address] [facility] [id number] [place] [address]- 2543 07 May, 2013 [facility] [address] [id number] [place] [address]- 4300 Apr, [facility] [address] [id number] [place] [address]- 1436 Apr, [facility] [address] [facility] [id number] [place] [address]- 2546 Apr, [facility] [address] [id number] [place] [address]- 2546 Apr, [facility] [address] [id number] [place] [address]- 1345 Apr, [facility] [address] [id number] [place] [address]- 5496 Apr, [facility] [address] [facility] [id number] [place] [address]- 7176 Apr, [facility] [address] [id number] [address]- 4695 Mar, [facility] [address] [id number] [place] [address]- 5002 Mar, [facility] [address] [id number] [place] [address]- 4999 Mar, [facility] [address] [id number], [place] [address]- 1459 Mar, [facility] [address] [id number], [place] [address]- 1142 Mar, [facility] [address] [id number] [place] [address]- 2546 Mar, [facility] [address] [id number][place] [address]- 3886 Mar, [facility] [address] [facility] [id number][place] [address]- 2546 Mar, [facility] [address] [id number] [place] [address]- 3577 04 Mar, 2013 [facility] [address] [id number] [place] [address]- 4666 04 Mar, 2013 [facility] [address] [id number] [place] [address]- 1114 Mar, [facility] [address] [id number] [place] [address]- 1021 Feb, [facility] [address] [id number] [place] [address]- 3604 Feb, [facility] [address] [id number] [place] [address]- 0514 Feb, [facility] [address] [id number] [place] [address]- 9030 Feb, [facility] [address] [id number] [place] [address]- 0319 Feb, [facility] [address] [id number] [place] [address]- 2174 19 Feb, 2013 [facility] [address] [id number] [place] [address]- 4885 15 Feb, 2013 [facility] [address] [id number] [place] [address]- 9682 14 Feb, 2013 [facility] [address] [id number] [place] [address]- 8920 14 Feb, 2013 [facility] [address] [id number][place] [address]- 3913 13 Feb, 2013 [facility] [address] [id number] [place] [address]- 2645 13 Feb, 2013 [facility] [address] [id number] [place] [address]- 7464 12 Feb, 2013 [facility] [address] [id number] [place] [address]- 9518 Feb, [facility] [address] [id number] [place] [address]- 8813 Feb, [facility] [place] [facility] [address] [id number] [place] [address]- 3586 Feb, [facility] [place] [facility] [address] [id number] [place] [address]- 7939 Feb, [facility] [place] [facility] [address] [id number] [place] [address]- 0290 Jan, [facility] [place] [address] [id number] [place] [address]- 1512 Jan, [facility] [place] [facility] [address] [id number] [place] [address]- 3224 Jan, [facility] [place] [facility] [address] [id number] [place] [address]- 1951 Jan, [facility] [place] [facility] [address] [id number] [place] [address]- 7319 Jan, [facility] [place] [facility] [address] [id number] [place] [address]- 6322 Jan, [facility] [place] [facility] [address] [id number] [place] [address]- 2440 Jan, [facility] [place] [facility] [address] [id number] [place] [address]- 9894 Jan, [facility] [address] [id number][place] [address]- 2248 10 Jan, 2013 [facility] [address] [id number] [place] [address]- 3285 27 Dec, 2012 [facility] [facility] [address] [id number] [place] [address]- 1879 20 Dec, 2012 [facility] [facility] [address] [id number] [place] [address]- 9794 19 Dec, 2012 [facility] [facility] [address] [id number][place] [address]- 4902 10 Dec, 2012 [facility] [place] [facility] [address] [id number] [place] [address]- 8306 04 Dec, 2012 [facility] [address] [id number] [place] [address]- 7750 Dec, [facility] [place] [facility] [address] [id number] [place] [address]- 8124 Nov, [facility] [place] [facility] [address] [id number] [place] [address]- 3014 Nov, [facility] [place] [facility] [address] [id number] [place] [address]- 5967 Nov, [facility] [place] [facility] [address] [id number] [place] [address]- 6260 Nov, [facility] [place] [facility] [address] [id number] [place] [address]- 5007 Nov, [facility] [place] [facility] [address] [id number] [place] [address]- 4559 Nov, [facility] [place] [address] [id number] [place] [address]- 1768 Nov, [facility] [place] [facility] [address] [id number] [place] [address]- 3220 Nov, [facility] [place] [facility] [address] [id number] [place] [address]- 8279 Nov, [facility] [place] [facility] [address] [id number] [place] [address]- 3689 Nov, [facility] [place] [facility] [address] [id number] [place] [address]- 2037 Oct, [facility] [place] [facility] [address] [id number] [place] [address]- 5113 Oct, [facility] [place] [facility] [address] [id number] [place] [address]- 3221 Oct, [facility] [place] [facility] [address] [id number] [place] [address]- 2899 Oct, [facility] [address] [id number] [place] [address]- 8173 Oct, [facility] [place] [facility] [address] [id number] [place] [address]- 2431 Oct, [facility] [address] [id number] [place] [address]- 2643 Oct, [facility] [address] [id number] [place] [address]- 6994 Oct, [facility] [address] [id number] [place] [address]- 0312 Sep, [facility] [address] [id number] [place] [address]- 9943 Sep, [facility] [address] [id number] [place] [address]- 2345 Sep, [facility] [address] [id number] [place] [address]- 2070 Sep, [facility] [address] [id number] [place] [address]- 2275 Sep, [facility] [address] [id number] [place] [address]- 2918 Sep, [facility] [place] [facility] [address] [id number] [place] [address]- 9993 Sep, [facility] [address] [id number] [place] [address]- 9165 Sep, [facility] [place] [facility] [address] [id number] [place] [address]- 8315 August, [facility] [facility] [address] [id number] [place] [address]- 2316 August, [facility] [address] [id number] [place] [address]- 7114 August, [facility] [address] [id number] [place] [address]- 9990 August, [facility] [address] [id number] [place] [address]- 9014 August, [facility] [address] [id number] [place] [address]- 7976 Jul, [facility] [place] [facility] [address] [id number] [place] [address]- 5707 Jul, [facility] [address] [id number] [place] [address]- 9445 Jul, [facility] [address] [id number] [place] [address]- 8493 Jul, [facility] [address] [id number] [place] [address]- 4589 Jul, [facility] [address] [id number] [place] [address]- 8874 Jun, [facility] [address] [id number] [place] [address]- 0195 18 Jun, 2012 [facility] [address] [id number] [place] [address]- 2995 15 Jun, 2012 [facility] [address] [id number] [place] [address]- 1471 14 Jun, 2012 [facility] [place] [facility] [address] [id number] [place] [address]- 9410 Jun, [facility] [place] [facility] [address] [id number] [place] [address]- 7804 Jun, [facility] [place] [facility] [address] [id number] [place] [address]- 3865 Jun, [facility] [place] [facility] [address] [id number] [place] [address]- 0368 Jun, [facility] [place] [facility] [address] [id number] [place] [address]- 0870 Jun, [facility] [address] [id number] [place] [address]- 3223 May, [facility] [address] [id number] [place]256 May, [facility] [address] [id number] [place] [address]- 9566 May, [facility] [address] [id number] [place] [address]- 9063 May, [facility] [address] [id number] [place] [address]- 7610 Apr, [facility] [address] [id number] [place] [address]- 0017 Apr, [facility] [address] [id number] [place] [address]- 1010 Apr, [facility] [address] [id number] [place] [address]- 1272 Apr, [facility] [address] [id number] [place] [address]- 2282 Apr, [facility] [address] [id number] [place] [address]- 7672 Apr, [facility] [address] [id number] [place] [address]- 2413 Apr, [facility] [address] [id number] [place] [address]- 1873 Mar, [facility] [address] [place] [id number] Mar, [facility] [address] [id number] [place] [address]- 1344 Mar, [facility] [address] [id number] [place] [address] Mar, [facility] [place] [facility] [address] [id number] [place] [address] Mar, [facility] [place] [facility] [address] [id number] [place] [address] Mar, [facility] [place] [facility] [address] [id number] [place] [address] Mar, [facility] [place] [facility] [address] [id number] [place] [address] Mar, [facility] [place] [facility] [address] [id number] [place] [address] Mar, [facility] [place] [facility] [address] [id number] [place] [address] Mar, [facility] [place] [facility] [address] [id number] [place] [address] Mar, [facility] [place] [facility] [address] [id number] [place] [address] Mar, [facility] [place] [facility] [address] [id number] [place] [address] Mar, [facility] [place] [facility] [address] [id number] [place] [address] Mar, [facility] [place] [facility] [address] [id number] [place] [address] Mar, [facility] [place] [facility] [address] [id number] [place] [address] Mar, [facility] [place] [facility] [address] [id number] [place] [address] 2021 Mar, [facility] [place] [facility] [address] [id number] [place] [address] Feb, [facility] [place] [facility] [address] [id number] [place] [address] Feb, [facility] [place] [facility] [address] [id number] [place] [address] Feb, [facility] [place] [facility] [address] [id number] [place] [address] Feb, [facility] [place] [facility] [address] [id number] [place] [address] Feb, [facility] [place] [facility] [address] [id number] [place] [address] Feb, [facility] [place] [facility] [address] [id number] [place] [address] Feb, [facility] [place] [facility] [address] [id number] [place] [address] Feb, [facility] [place] [facility] [address] [id number] [place] [address] Feb, [facility] [place] [facility] [address] [id number] [place] [address] Feb, [facility] [place] [facility] [address] [id number][place] [address] Feb, [facility] [place] [facility] [address] [id number] [place] [address] Feb, [facility] [place] [facility] [address] [id number][place] [address] Feb, [facility] [place] [facility] [address] [id number][place] [address] Feb, [facility] [place] [facility] [address] [id number][place] [address] Feb, [facility] [place] [facility] [address] [id number] [place] [address] Feb, [facility] [place] [facility] [address] [id number][place] [address] Jan, [facility] [place] [facility] [address] [id number] [place] [address] Jan, [facility] [place] [facility] [address] [id number] [place] [address] Jan, [facility] [place] [facility] [address] [id number] [place] [address] Jan, [facility] [place] [facility] [address] [id number] [place] [address] Jan, [facility] [place] [facility] [address] [id number] [place] [address] Jan, [facility] [place] [facility] [address] [id number] [place] [address] Jan, [facility] [place] [facility] [address] [id number] [place] [address]- 48[address] Jan, [facility] [place] [facility] [address] [id number] [place] [address] Jan, [facility] [place] [facility] [address] [id number] [place] [address] Jan, [facility] [place] [facility] [address] [id number] [place] [address] Jan, [facility] [place] [facility] [address] [id number] [place] [address]- [address] Jan, [facility] [place] [facility] [address] [facility] [id number] [place] [address]- [address] Jan, [facility] [place] [facility] [address] [id number] [place] [address]- [address] Jan, [facility] [place] [facility] [address] [id number][place] [address] Jan, [facility] [place] [facility] [address] [id number] [place] [address]- [address] 05 Jan, 2012 [facility] [place] [facility] [address] [facility] [id number] [place] [address]- [address] Jan, [facility] [place] [facility] [address] [facility] [id number][place] [address] Dec, [facility] [place] [facility] [address] [id number] [place] [address] 2546 20 Dec, 2011 [facility] [place] [facility] [address] [id number] [place] [address] 2546 18 Dec, 2011 [facility] [place] [facility] [address] [id number] [place] [address] 2546 18 Dec, 2011 [facility] [place] [facility] [address] [id number] [place] [address]46 10 Dec, 2011 [facility] [place] [facility] [address] [id number] [place] [address] 2546 10 Dec, 2011 [facility] [place] [facility] [address] [id number] [place] [address] 2546 10 Dec, 2011 [facility] [place] [facility] [address] [id number] [place] [address]- [address] 07 Dec, 2011 [facility] [place] [facility] [address] [id number] [place] [address]- [address] 30 Nov, 2011 [facility] [place] [facility] [address] [id number] [place] [address] Nov, [facility] [place] [facility] [address] [id number] [place] [address]- [address]47 24 Nov, 2011 [facility] [place] [facility] [address] [id number] [place] [address] 2546 Nov, [facility] [place] [facility] [address] [id number] [place] [address] 2546 Nov, [facility] [place] [facility] [address] [id number] [place] [address] 16 Nov, 2011 [facility] [place] [facility] [address] [id number] [place] [address] 2546 Oct, [facility] [place] [facility] [address] [id number] [place] [address] 2546 Oct, [facility] [place] [facility] [address] [id number] [place] [address]- 235[address] Oct, [facility] [place] [facility] [address] [id number] [place] [address]- [address]196 Oct, [facility] [place] [facility] [address] [id number] [place] [address]- 6027 Oct, [facility] [place] [facility] [address] [id number] [place] [address]- 9528 Oct, [facility] [place] [facility] [address] [id number] [place] [address]- [address]684 Oct, [facility] [place] [facility] [address] [id number] [place] [address]- [address] Sep, [facility] [place] [facility] [address] [id number] [place] [address]- 70[address] Sep, [facility] [place] [facility] [address] [id number] [place] [address] Sep, [facility] [place] [facility] [address] [id number] [place] [address] Sep, [facility] [place] [facility] [address] [id number] [place] [address] Sep, [facility] [place] [facility] [address] [id number] [place] [address] 15 Sep, 2011 [facility] [place] [facility] [address] [id number] [place] [address] 14 Sep, 2011 [facility] [place] [facility] [address] [id number] [place] [address] Sep, [facility] [place] [facility] [address] [id number] [place] [address] 05 Sep, 2011 [facility] [place] [facility] [address] [id number] [place] [address] 04 Sep, 2011 [facility] [place] [facility] [address] [id number] [place] [address] August, [facility] [place] [facility] [address] [id number] [place] [address] August, [facility] [address] [id number] [place] [address] August, [facility] [address] [id number] [place] [address] August, [facility] [address] [id number] [place] [address] August, [facility] [address] [id number] [place] [address] Jul, [facility] [address] [id number] [place] [address] Jul, [facility] [address] [id number] [place] [address] Jul, [facility] [address] [id number] [place] [address]226 Jul, [facility] [address] [id number] [place] [address] Jul, [facility] [address] [id number] [place] [address] Jul, [facility] [address] [id number] [place] [address] Jul, [facility] [address] [id number] [place] [address] Jun, [facility] [address] [id number] [place] [address] Jun, [facility] [address] [id number] [place] [address] Jun, [facility] [address] [id number] [place] [address] Jun, [facility] [address] [id number] [place] [address] Jun, [facility] [place] [facility] [address] [id number] [place] [address] 44[address] May, [facility] [place] [facility] [address] [id number] [place] [address] May, [facility] [place] [facility] [address] [id number] [place] [address] May, [facility] [place] [facility] [address] [id number] [place] [address] 8[address] May, [facility] [place] [facility] [address] [id number] [place] [address] May, [facility] [place] [facility] [address] [id number] [place] [address] May, [facility] [place] [facility] [address] [facility] [id number] [place] [address] Apr, [facility] [place] [facility] [address] [id number][place] [address] Mar, [facility] [place] [facility] [address] [id number] [place] [address] Feb, [facility] [place] [facility] [address] [facility] [id number] [place] [address] Feb, [facility] [place] [facility] [address] [facility] [id number][place] [address] Feb, [facility] [place] [facility] [address] [id number][place] [address] Feb, [facility] [place] [facility] [address] [facility] [id number] [place] [address] Jan, [facility] [place] [facility] [address] [facility] [id number][place] [address] Jan, [facility] [place] [facility] [address] [facility] [id number] [place] [address] Jan, [facility] [place] [facility] [address] [id number] [place] [address]- [address]153 24 Jan, 2011 [facility] [address] [id number] [place] [address] 4086 14 Jan, 2011 [facility] [place] [facility] [address] [id number] [place] [address] 2546 19 Dec, 2010 [facility] [address] [id number] [place] [address] 2546 20 Oct, 2010 [facility] [place] [facility] [address] [id number] [place] [address] 2546 13 Aug, 2010 [facility] [address] [id number] [place] [address]- 2941 29 Mar, 2010 [facility] [place] [facility] [address] [id number] [place] [address]- 1226 27 Mar, 2010 [facility] [address] [id number] [place] [address]- 0656 16 Mar, 2010 [facility] [place] [facility] [address] [id number] [place] [address] 2542 15 Mar, 2010 [facility] [place] [facility] [address] [id number] [place] [address] 2546 15 Mar, 2010 [facility] [place] [facility] [address] [facility] [id number] [place] [address]- 2544 08 Mar, 2010 [facility] [place] [facility] [address] [id number] [place] [address] 2546 03 Mar, 2010 [facility] [place] [facility] [address] [id number] [place] [address] 2545 24 Feb, 2010 [facility] [place] [facility] [address] [id number] [place] [address] 2546 24 Feb, 2010 [facility] [place] [facility] [address] [id number] [place] [address]- 2546 15 Feb, 2010 [facility] [place] [facility] [address] [id number] [place] [address] 2541 Jan, [facility] [place] [facility] [address] [id number] [place] [address]- 8280 Jan, [facility] [place] [facility] [address] [id number] [place] [address] 6862 Jan, [facility] [place] [facility] [address] [id number] [place] [address]- 5099 Nov, [facility] [place] [facility] [address] [id number] [place] [address], [place] [address]- [address] Sep, [facility] [place] [facility] [address] [id number] [place] [address]- 68[address] August, [facility] [place] [facility] [address] [id number] [place] [address]- 0083 Mar, [facility] [place] [facility] [address] [id number] [place] [address]- 2175 Mar, [facility] [place] [facility] [address] [id number] [place] [address]- 3731 17 Feb, 2009 [facility] [place] [facility] [address] [id number] [place] [address]- 5170 Feb, [facility] [place] [facility] [address] [id number] [place] [address]- 2350 10 Feb, 2009 [facility] [place] [facility] [address] [id number] [place] [address]- 7066 10 Feb, 2009 [facility] [place] [facility] [address] [id number][place] [address]16 06 Feb, 2009 [facility] [place] [facility] [address] [id number] [place] [address]- 5967 27 Jan, 2009 [facility] [place] [facility] [address] [id number] [place] [address]- 4446 Jan, [facility] [place] [facility] [address] [id number][place] [address]- [address] 20 Jan, 2009 [facility] [place] [facility] [address] [id number][place] [address] 2546 Jan, [facility] [address] [facility] [id number][place] [address] 2546 Nov, [facility] [address] [facility] [id number][place] [address]- [address]46 Sep, [place] [address] [facility] [id number][place] [address]46 August, [place] [address] [facility] [id number][place] [address]- [address] Jul, [place] [address] [facility] [id number][place] [address] 2546 May, IMMUNIZATIONS No Known Immunizations SOCIAL HISTORY Never Assessed REASON FOR VISIT Wet cough x3 weeks. Pt requesting cough syrup without codeine due to insurance and financial needs. [facility] PLAN OF CARE Activity Details Follow Up prn Reason: VITAL SIGNS Height 64 in 2017-06-21 Weight 157.8 lbs 2017-06-21 Temperature 97.0 degrees Fahrenheit 2017-06-21 Heart Rate 90 bpm 2017-06-21 Respiratory Rate 20 2017-06-21 BMI 27.08 kg/m2 2017-06-21 Blood pressure systolic 90 mmHg 2017-06-21 Blood pressure diastolic 62 mmHg 2017-06-21 MEDICATIONS Medication Instructions Dosage Frequency Start Date End Date Duration Status Eliquis 5 MG Orally 2 times a day 12h Active Ropinirole HCl 2 MG TAKE 1 TABLET ONE TIME DAILY AT BEDTIME 90 Active Ventolin HFA 108 (90 Base) MCG/ACT INHALE 2 PUFFS EVERY 4 HOURS NEEDED 16 Active Toprol XL 25 MG Orally Once a day 1 tablet 24h Active Welchol 625 MG Orally twice a day 2 tablets 12h Active Mupirocin 2 % Externally two times a day 1 application to affected area 12h Active Namenda 10 MG TAKE 1 TABLET EVERY DAY Active Benefiber - Active Oxygen 5 inhalation all the time Active Remeron 45 MG Orally Once a day at bedtime 1 tablet Feb, 30 days Not-Taking Nitroglycerin 0.4 MG Active Zofran ODT 4 MG Orally every 4 hrs 1 tablet on the tongue and allow to dissolve 4h Jul, 1 days Active Symbicort 160-4.5 MCG/ACT INHALE 2 PUFFS TWICE DAILY, IN THE MORNING AND IN THE EVENING 90 Active Azithromycin 250 MG Orally Once a day 2 tablets on the first day, then 1 tablet daily for 4 days 24h Jun, Jun, 05 days Active Xifaxan 550 MG Orally Three times a day 1 tablet 8h Active HydrOXYzine HCl 25 MG Orally three times a day as needed 1 tablet Active Diltiazem HCl ER 240 MG Orally Once a day 1 capsule 24h Active Alendronate Sodium 70 MG TAKE 1 TABLET EVERY WEEK Active Singulair 10 MG Orally Once a day take 1 tablet (10 mg) by oral route once daily in the evening 24h Oct, Active Baclofen 20 MG Orally 3 times a day 1 tablet with food or milk 8h 24 May, 2016 30 day(s) Active Lomotil 2.5-0.025 mg Orally Four times a day TWO TABLETS 6h 30 Active Promethazine-Codeine 6.25-10 MG/5ML Orally every 6 hrs 5 ml as needed 6h 15 Jun, 2017 Active Magnesium Active Spiriva HandiHaler 18 MCG Inhalation Once a day 1 capsule 24h Active Calcium Active Primidone 250 mg Orally Three times a day 1 tablet 8h 90 days Active Melatonin 5 MG Orally Once a day 1 tablet at bedtime as needed with food 24h Jun, 30 day(s) Active Cetirizine HCl 10 MG Orally Once a day 1 tablet as needed 24h Not- Taking Abilify 5 MG Orally Once a day 1 tablet 24h Active Omeprazole 40 mg Orally Once a day 1 capsule 24h Active Albuterol Sulfate 2.5 mg /3 mL (0.083 %) 1 Each by Inhalation route every 4 hours for cough and wheeze PRN for wheezing or cough Jun, Not-Taking Vitamin D 50,000 Orally once a week 1 tablet Active Fluticasone Propionate 50 MCG/ACT Nasally 2 times a day 2 sprays in each nostril 12h 30 days Active Simvastatin 20mg Orally Once a day 1 tablet in the evening 24h Active Lamictal 25 MG Orally every night 3 tablets Apr, 30 days Not -Taking Pantoprazole Sodium 40 MG Orally 2 times a day 1 tablet 12h Active Trospium Chloride 20 mg Orally Once a day 1 tablet at bedtime on an empty stomach 24h Active Gabapentin 600 MG TAKE 1 TABLET THREE TIMES DAILY 90 Active RESULTS No Results PROCEDURES Procedure Date Ordered Result Body Site [facility] VISIT ESTABLISHED PATIENT June 21, 2017 INSTRUCTIONS MEDICATIONS ADMINISTERED No Known Medications [...] Knee Surgery 07/16/17 Hospitalization History [facility] [place]- left hand/wrist swelling 10/09/2017
--- OUTSIDE RECORDS SUMMARY | 2018-01-01 12:55 | XMS REPORT ---
Author Author SENAIT DUNLAP [facility] Address [address] [place] [address] Care Team Providers Care Furnace Cleaner Name Role Phone SENAIT DUNLAP Unavailable PROBLEMS Type Condition ICD9-CM Code DNM72-LZ Code Onset Dates Condition Status SNOMED Code Problem History of common bile duct surgery Z98.89 Active 004593972 Problem Barretts esophagus K22.70 Active 364902410 Problem 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 Active 35293965 Problem Colon polyp K63.5 Active 50595854 Problem Bilateral low back pain without sciatica M54.5 Active 136627766 Problem Screening breast examination Z12.39 Active 634977885 Problem Postmenopausal Z78.0 Active 06667402 Problem Osteopenia M85.80 Active 052545809 Problem Cigarette nicotine dependence without complication F17.210 Active 55919452 Problem Type 2 diabetes mellitus with diabetic peripheral angiopathy without gangrene E11.51 Active 324714320 Problem Vascular dementia without behavioral disturbance F01.50 Active [id number] Problem Unspecified atherosclerosis of [place] arteries of extremities, unspecified extremity I70.209 Active 536282684685694 Problem Arthritis M19.90 Active 2361932 Problem Chronic atrial fibrillation I48.2 Active 654282247 Problem Chronic obstructive pulmonary disease with acute lower respiratory infection J44.0 Active 066018889 Problem Other chronic pancreatitis K86.1 Active 128185413 Problem Stress incontinence of urine N39.3 Active 92289525 Problem Controlled type 2 diabetes mellitus without complication, without long -term current use of insulin E11.9 Active 955272789 Problem Unspecified psychosis F29 Active 39956162 Problem Xeroderma Q80.9 Active 20714445 Problem COPD (chronic obstructive pulmonary disease) J44.9 Active 91811951 Problem Dementia without behavioral disturbance, unspecified dementia type F03.90 Active 80468919 Problem Gastroparesis K31.84 Active 193630180 Problem Type 2 diabetes mellitus with diabetic neuropathy, without long-term current use of insulin E11.40 Active 85506340 Problem Osteoporosis M81.0 Active 45111152 Problem Atherosclerosis of [place] artery of both lower extremities with intermittent claudication I70.213 Active 295349457665315 Problem Hyperlipidemia E78.5 Active 04439704 Problem Diabetic polyneuropathy associated with type 2 diabetes mellitus E11.42 Active 18360033 Problem Essential tremor G25.0 Active 63294995 Problem Atherosclerotic heart disease of [place]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 I25.118 Active 0531553297177 Problem Generalized anxiety disorder F41.1 Active 176038363 Problem Gastroesophageal reflux disease, esophagitis presence not specified K21.9 Active 303455845 Problem Coronary artery disease involving [place] coronary artery of [place] heart with other form of angina pectoris I25.118 Active 9817720904585 Problem Postconcussion syndrome F07.81 Active 90583911 Problem Chronic pain syndrome G89.4 Active 968085906 Problem Migraine without aura and without status migrainosus, not intractable G43.009 Active 150150959 Problem Paroxysmal atrial fibrillation I48.0 Active 170429802 Problem Migraine without aura and with status migrainosus, not intractable G43.001 Active 516236842 Problem Cervicalgia M54.2 Active 7730682831242 Problem Acute exacerbation of chronic obstructive pulmonary disease (COPD) J44.1 Active 575548587 Problem Major depressive disorder, recurrent episode, moderate F33.1 Active 590978786 Problem Crohn''s disease without complication, unspecified gastrointestinal tract location K50.90 Active 35113042 Problem Chronic fatigue R53.82 Active 65726790 Problem Bipolar affective disorder, currently depressed, moderate F31.32 Active 262259345 ALLERGIES No Information ENCOUNTERS Encounter Location Date Diagnosis [facility] [id number], [place] [address] Nov, [facility] [address] [address] Nov, [facility] [id number] [address] Oct, [facility] [id number], [place] [address] 267[address] Oct, [facility] [address], [place] [address] Oct, Edema of both legs R60.0 [facility] [id number] [place] [address] 27763- 3436 Oct, [facility] [id number] [place] [address] 30836- 3869 Sep, [facility] [id number] [place] [address] 43564- 8398 Sep, [facility] [id number] [place] [address] 07146- 1562 Sep, [facility] [id number] [place] [address] 63223- 6406 Sep, Encounter for well woman exam with routine gynecological exam Z01.419 ; Screening for STDs (sexually transmitted diseases) Z11.3 ; Screening breast examination Z12.31 and Overweight (BMI 25.0-29.9) E66.3 [facility] [id number] [place] [address] 19650- 6155 Sep, [facility] [id number] [place] [address] 48680- 9178 Sep, [facility] [id number] [place] [address] 21670- 8744 Sep, [facility] [id number] [address] 6[address] August, [facility] [id number] [place] [address] 75497- 5801 August, [facility] [id number] [place] [address] 33098- 5719 August, Type 2 diabetes mellitus with diabetic neuropathy, without long-term current use of insulin E11.40 and Sprain of right ankle, unspecified ligament, initial encounter S93.401A [facility] [id number] [place] [address] 10067- 9475 August, [facility] [id number] [place] [address] 49600- 2076 August, [facility] [id number] [place] [address] 60424- 0561 August, [facility] [id number] [place] [address] 37867- 7942 August, Gastroesophageal reflux disease, esophagitis presence not specified K21.9 [facility] [id number] [place] [address] 69365- 9465 August, [facility] [id number] [place] [address] 18257- 2468 August, [facility] [id number] [place] [address] 46399- 0759 August, [facility] [id number] [place] [address] 62287- 1316 August, Type 2 diabetes mellitus with diabetic neuropathy, without long-term current use of insulin E11.40 and Elevated liver enzymes R74.8 [facility] [id number] [place] [address] 66969- 4493 Jul, [facility] [id number] [place] [address] 09459- 2985 Jul, Cough R05 [facility] [id number] [place] [address] 66867- 3979 Jul, [facility] [id number] [place] [address] 59614- 9716 Jul, [facility] [id number] [place] [address] 01109- 4296 Jul, Bipolar affective disorder, currently depressed, moderate F31.32 ; Vascular dementia without behavioral disturbance F01.50 and Generalized anxiety disorder F41.1 [facility] [id number] [place] [address] 69276- 6984 Jul, [facility] [id number] [place] [address] 98105- 1180 Jul, Type 2 diabetes mellitus with diabetic neuropathy, without long-term current use of insulin E11.40 and Elevated liver enzymes R74.8 [facility] [id number] [place] [address] 16052- 0707 Jul, [facility] [address] 39340- 3814 Jul, [facility] [address] 75860- 5691 Jul, [facility] [address] 61510- 4299 Jul, Post-menopausal Z78.0 [facility] [address] 67067- 4860 Jul, Stress incontinence of urine N39.3 [facility] [address] 42411- 1845 Jul, [facility] [id number] [place] [address] 55160- 0272 Jul, [facility] [id number] [place] [address] 28522- 8726 Jul, Stress incontinence of urine N39.[address] [facility] [id number] [place] [address] 47324- 9529 Jul, [facility] [id number] [place] [address] 40768- 0185 Jul, [facility] [id number] [place] [address] 46827- 2645 Jul, [facility] [address] 76280- 8800 Jul, Gastroesophageal reflux disease, esophagitis presence not specified K21.9 [facility] [address] 42576- 8737 Jun, Diabetic polyneuropathy associated with type [address] [facility] [id number] [place] [address] 52686- 3630 Jun, Diabetic polyneuropathy associated with type 2 diabetes mellitus E11.42 ; Coronary artery disease involving [place] coronary artery of [place] heart with other form of angina pectoris I25.118 and Paroxysmal atrial fibrillation I48.0 [facility] [address] 98428- 2452 Jun, [facility] [id number] [place] [address] 13198- 2260 Jun, [facility] [address] 53724- 5382 Jun, Gastroenteritis K52.9 [facility] [address] 86678- 7659 Jun, Gastroenteritis K52.9 [facility] [id number] [place] [address] 48072- 8282 Jun, [facility] [id number] [place] [address] 95809- 7646 Jun, [facility] [id number] [place] [address] 11587- 5897 Jun, Sprain of right ankle, unspecified ligament, initial encounter S93.401A ; Type 2 diabetes mellitus with diabetic neuropathy, without long-term current use of insulin E11.40 ; Atherosclerosis of [place] artery of both lower extremities with intermittent claudication I70.213 ; Atherosclerotic heart disease of [place]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 I25.118 ; Chronic atrial fibrillation I48.2 and Crohn''s disease without complication, unspecified gastrointestinal tract location K50.90 [facility] [id number] [place] [address] 65935 -6959 17 Jun, 2017 Cough R05 and Chronic obstructive pulmonary disease with acute lower respiratory infection J44.0 [facility] [id number] [place] [address] 76073- 8601 Jun, [facility] [address], [place] [address] 4[address] Jun, Coughing R05 ; Unspecified atherosclerosis of [place] arteries of extremities, unspecified extremity I70.209 ; Type 2 diabetes mellitus with diabetic peripheral angiopathy without gangrene E11.51 ; Crohn''s disease without complication, unspecified gastrointestinal tract location K50.90 ; Other chronic pancreatitis K86.1 and Chronic atrial fibrillation I48.2 [facility] [address], [place] [address] Jun, [facility] [id number] [place] [address] 69905- 4174 Jun, Bipolar affective disorder, currently depressed, moderate F31.32 ; Vascular dementia without behavioral disturbance F01.50 and Generalized anxiety disorder F41.1 [facility] [id number] [place] [address] 00811- 0641 May, Generalized anxiety disorder F41.1 [facility] [id number] [place] [address] 59196- 9502 May, [facility] [id number] [place] [address] 37018- 9683 May, [facility] [address], [place] [address]- 7073 May, Coughing R05 [facility] [id number] [place] [address] 66316- 2922 May, [facility] [id number] [place] [address] 36233- 9523 May, Bipolar affective disorder, currently depressed, moderate F31.32 ; Vascular dementia without behavioral disturbance F01.50 and Generalized anxiety disorder F41.1 [facility] [address], [place] [address]- 4721 Apr, Generalized anxiety disorder F41.1 [facility] [id number] [place] [address] 69847- 0214 Apr, [facility] [id number] [place] [address] 29197- 7956 Apr, Vascular dementia without behavioral disturbance F01.50 ; Generalized anxiety disorder F41.1 and Bipolar affective disorder, currently depressed, moderate F31.32 [facility] [id number] [place] [address] 50794- 9298 Apr, Generalized anxiety disorder F41.1 [facility] [id number] [place] [address] 70656 -2383 Apr, Cough R05 and Acute exacerbation of chronic obstructive pulmonary disease (COPD) J44.1 [facility] [id number] [place] [address] 96547- 2807 Apr, [facility] [id number] [place] [address] 13945 -0612 Mar, Cough R05 and Cigarette nicotine dependence without complication F17.210 [facility] [id number] [place] [address] 47367- 5340 Mar, [facility] [id number] [place] [address] 90820- 6880 Feb, Generalized anxiety disorder F41.1 ; Major depressive disorder, recurrent episode, moderate F33.1 ; Vascular dementia without behavioral disturbance F01.50 and Unspecified psychosis F29 [facility] [id number] [place] [address] 94579- 0454 Feb, [facility] [id number] [place] [address] 44116- 9580 Feb, [facility] [id number] [place] [address] 48607- 8842 Feb, Generalized anxiety disorder F41.1 [facility] [id number] [place] [address] 32250- 2429 14 Feb, 2017 Generalized anxiety disorder F41.1 [facility] [id number] [place] [address] 05273- 6511 Feb, Dizziness R42 ; Chronic fatigue R53.82 ; Postconcussion syndrome F07.81 ; Fall, initial encounter W19.XXXA and Disorientation R41.0 [facility] [id number] [place] [address] 39268- 3143 Feb, Postconcussion syndrome F07.81 ; Injury of head, initial encounter S09.90XA ; Fall, initial encounter W19.XXXA ; Disorientation R41.0 and Acute cystitis with hematuria N30.01 [facility] [address] 94672- 6633 Jan, Gastroesophageal reflux disease, esophagitis presence not specified K21.9 ; Post-menopausal Z78.0 and Migraine without aura and without status migrainosus, not intractable G43.009 [facility] [address] 90243- 0638 Jan, [facility] [address] 26013- 4801 Jan, Generalized anxiety disorder F41.1 ; Major depressive disorder, recurrent episode, moderate F33.1 ; Vascular dementia without behavioral disturbance F01.50 and Unspecified psychosis F29 [facility] [id number] [place] [address] 69752- 5196 Jan, Pneumonia of left lower lobe due to infectious organism J18.1 [facility] [id number] [place] [address] 05102- 4873 Jan, Migraine without aura and with status migrainosus, not intractable G43.001 [facility] [address] 35325 -5164 Jan, Migraine without aura and without status migrainosus, not intractable G43.009 [facility] [place] [id number] [place] [address] 98652- 4678 Dec, Hematoma T14.8 [facility] [address], [place] [address]- 1725 Dec, [facility] [address] [place] [address] 36367 -9354 Nov, Fatigue, unspecified type R53.83 [facility] [address], [place] [address]- 4933 Nov, Scabies B86 and Coronary artery disease involving bois [place]te coronary artery of bo[place]te heart with other form of angina pectoris I25.118 [facility] [id number], [place] [address]- 5800 Nov, [facility] [id number] [place] [address] 86955- 0882 Nov, [facility] [id number] [place] [address] 77436- 2370 Oct, [facility] [id number] [place] [address] 01770- 2734 Oct, Generalized anxiety disorder F41.1 and Major depressive disorder, recurrent episode, moderate F33.1 [facility] [address] [place] [address] 54147- 2473 Oct, Cramp of both lower extremities R25.2 [facility] [address], [place] [address]- 4763 Oct, Leg cramps R25.2 [facility] [address] [place] [address] 85928- 9085 Oct, Chronic pain syndrome G89.4 [facility] [address] [place] [address] 52446- 8070 Oct, [facility] [address] [place] [address] 14357- 0366 Oct, [facility] [address], [place] [address]- 9232 Oct, Routine gynecological examination Z01.419 and Screening for breast cancer Z12.31 [facility] [address] [place] [address] 38895- 0021 Sep, Diarrhea R19.7 [facility] [id number] [place] [address] 80960- 8073 Sep, Back pain M54.9 [facility] [id number] [place] [address] 80709- 2111 Sep, [facility] [place] [id number] [place] [address] 96294- 2680 Sep, [facility] [id number] [place] [address] 64146 -8512 August, Xeroderma Q80.9 [facility] [id number] [place] [address] 61626- 9092 August, Dementia without behavioral disturbance, unspecified dementia type F03.90 [facility] [id number] [place] [address] 55913- 5896 August, Chronic pain syndrome G89.4 [facility] [id number] [place] [address] 02764- 1413 August, [facility] [id number] [place] [address] 71469- 4128 August, Hyperlipidemia E78.5 ; Other fatigue R53.83 and Other specified hypotension I95.89 [facility] [id number] [place] [address] 50802 -4616 August, Dysuria R30.0 ; Other fatigue R53.83 and Other specified hypotension I95.89 [facility] [id number] [place] [address] 90629- 1011 August, [facility] [id number] [place] [address] 09032- 4478 Jul, Pain in left knee M25.562 and Gastroenteritis K52.9 [facility] [place] [address] [place] [address]- 7338 Jul, [facility] [address] 29774- 8163 Jul, Diarrhea R19.7 [facility] [address] 42032 -4876 Jul, Spider bite, accidental or unintentional, initial encounter T63.301A [facility] [place] [address] 24275- 4053 Jul, Primary osteoarthritis of right knee M17.11 and Arthritis M19.90 [facility] [address] 48383- 8374 Jul, Generalized anxiety disorder F41.1 and Major depressive disorder, recurrent episode, moderate F33.1 [facility] [address] 48083- 5217 Jul, Type 2 diabetes mellitus with diabetic polyneuropathy E11.42 and Temporal headache R51 [facility] [address] 35834- 4669 Jul, Back pain M54.9 [facility] [address] 29963- 8590 Jul, [facility] [address] 03138- 8654 Jul, [facility] [place] [address] 73020- 7598 Jun, Nausea R11.0 [facility] [id number] [place] [address] 81120 -6499 Jun, Acute suppurative otitis media of both ears without spontaneous rupture of tympanic membranes, recurrence not specified H66.003 and COPD exacerbation J44.1 [facility] [place] [id number] [place] [address] 97547- 7895 Jun, Generalized anxiety disorder F41.1 [facility] [id number] [place] [address] 09331- 8331 16 Jun, 2016 [facility] [id number] [place] [address] 57168 -8523 Jun, [facility] [id number] [place] [address] 41411 -1171 13 Jun, 2016 Shortness of breath R06.02 and COPD exacerbation J44.1 [facility] [address] 76906- 5328 10 Jun, 2016 Eczema, unspecified type L30.9 [facility] [address] 65867- 2522 Jun, [facility] [id number] [place] [address] 68443- 2296 24 May, 2016 [facility] [address] 74351- 2687 May, Muscle cramping R25.2 [facility] [id number] [place] [address] 94840- 6674 May, [facility] [place] [id number] [place] [address] 49430- 0189 Apr, Diarrhea R19.7 [facility] [id number] [place] [address] 32076- 7566 Apr, [facility] [place] [id number] [place] [address] 85119- 1697 Apr, Chronic pain syndrome G89.4 [facility] [place] [id number] [place] [address] 04336- 8979 Apr, Cramp of both lower extremities R25.2 and Vascular dementia without behavioral disturbance F01.50 [facility] [id number] [place] [address] 29903- 0344 Apr, Type 2 diabetes mellitus with diabetic polyneuropathy E11.42 and Cigarette nicotine dependence without complication F17.210 [facility] [id number] [place] [address] 47808- 1619 Mar, Generalized anxiety disorder F41.1 [facility] [place] [address] 64469- 1201 Feb, Generalized anxiety disorder F41.1 and Major depressive disorder, recurrent episode, moderate F33.1 [facility] [place] [address] 44818- 8551 Feb, [facility] [id number] [place] [address] 81947 -6358 Feb, Dysuria R30.0 and Acute cystitis with hematuria N30.01 [facility] [place] [address] 14911- 1219 Jan, [facility] [place] [address] 15670- 2063 Jan, [facility] [address] 15154- 5217 Jan, [facility] [address] 78137- 7228 Jan, [facility] [id number] [place] [address] 80625 -4538 Jan, Wasp sting, accidental or unintentional, initial encounter T63.461A [facility] [address] 64551- 2499 Jan, Encounter for immunization Z23 [facility] [id number] [place] [address] 44918- 7655 Jan, [place] [address] [address]81- 2027 Jan, [facility] [id number] [place] [address] 71580- 8136 Dec, Generalized anxiety disorder F41.1 and Major depressive disorder, recurrent episode, moderate F33.1 [facility] [address] [address] 1275 21 Dec, 2015 Routine gynecological examination Z01.419 ; Postmenopausal Z78.0 ; Screening breast examination Z12.39 ; Osteopenia M85.80 and Breast cancer screening Z12.39 [facility] [id number] [place] [address] 75151- 7[address], [address] [facility] [id number] [place] [address] 31951- 5520 [address], [address] [facility] [id number] [place] [address] 30985- 9627 [address], [address] [facility] [id number] [place] [address] 06190- 7681 [address], [address] [facility] [id number] [place] [address] 08143- 9428 [address], [address] [facility] [id number] [place] [address] 25232- 6710 [address], [address] [facility] [id number] [place] [address] 94874- 5669 30 Nov, 2015 [facility] [id number] [place] [address] 52664 -1132 Nov, Cough R05 ; Other viral agents as the cause of diseases classified elsewhere B97.89 and Acute upper respiratory infection, unspecified J06.9 [facility] [id number] [place] [address] 68778- 5667 Nov, [facility] [id number] [place] [address] 22428- 6031 Nov, [facility] [id number] [place] [address] 44408- 0760 Nov, [facility] [id number] [place] [address] 96781- 9677 Nov, [facility] [id number] [place] [address] 77613- 9702 Nov, [facility] [id number] [place] [address] 39071- 4477 Oct, [facility] [id number] [place] [address] 53878- 3693 Oct, [facility] [id number] [place] [address] 93787- 6910 Oct, [facility] [address] 88666- 4467 Oct, Chronic pain syndrome G89.4 [facility] [address] 87110- 2232 Sep, Generalized anxiety disorder F41.1 and Major depressive disorder, recurrent episode, moderate F33.1 [facility] [address] 81386- 5334 Sep, [facility] [address] 36070- 5171 Sep, [facility] [id number] [place] [address] 50924- 7083 Sep, Generalized anxiety disorder F41.1 [facility] [id number] [place] [address] 04021- 1692 Sep, Cramp of both lower extremities R25.[address] [facility] [id number] [place] [address] 22732- 0315 Sep, Generalized anxiety disorder F41.1 [facility] [id number] [place] [address] 18080- 6033 Sep, [facility] [id number] [place] [address] 12822 -5987 August, Rash R21 ; Itching L29.9 and Allergic response, subsequent encounter T78.40XD [facility] [id number] [place] [address] 40831- 4815 August, Primary insomnia F51.01 [facility] [id number] [place] [address] 77373 -7056 August, Rash R21 ; Itching L29.9 and Allergic response, initial encounter T78.40XA [facility] [id number] [place] [address] 89824- 1920 August, [facility] [address] 53723- 0088 August, Cramp of both lower extremities R25.2 [place] [address] 50583- 6053 August, Back pain M54.9 [place] [id number] [place] [address] 14804- 6625 August, [facility] [address] 86876- 0168 August, [facility] [id number] [place] [address] 46303 -7304 August, Cramp of both lower extremities R25.2 [facility] [id number] [place] [address] 15118- 8420 August, [facility] [id number] [place] [address] 17497- 1246 August, Syncope R55 ; Paroxysmal atrial fibrillation I48.0 ; Dementia without behavioral disturbance, unspecified dementia type F03.90 and Chronic pain syndrome G89.4 [facility] [id number] [place] [address] 99225- 9202 August, Type 2 diabetes mellitus with diabetic polyneuropathy E11.[address] [facility] [id number] [place] [address] 39933- 8680 Jul, [facility] [id number] [place] [address] 38746- 4231 Jul, [facility] [address] [facility] [id number] [address] 5[address] Jul, [facility] [address] [address] 0166 Jul, [facility] [address], [place] [address]- 2099 Jul, [facility] [address], [place] [address]- 8852 Jul, UTI (urinary tract infection) N39.0 [facility] [address], [place] [address]- 6572 Jul, [facility] [address], [place] [address]- 5055 18 Jul, 2015 Major depressive disorder, recurrent episode, moderate F33.1 and Generalized anxiety disorder F41.1 [facility] [address], [place] [address]- 1477 Jul, Generalized anxiety disorder F41.1 [facility] [address], [place] [address]- 1647 Jul, Diarrhea R19.7 [facility] [address], [place] [address]- 5581 Jul, [facility] [address], [place] [address]- 9664 Jun, [facility] [address], [place] [address]- 5151 Jun, Eczema L30.9 [facility] [address], [place] [address]- 8266 Jun, [facility] [address], [place] [address]- 0276 17 Jun, 2015 COPD (chronic obstructive pulmonary disease) J44.9 [facility] [address], [place] [address]- 1683 Jun, [facility] [address], [place] [address]- 0271 Jun, Major depressive disorder, recurrent episode, moderate F33.1 and Generalized anxiety disorder F41.1 [facility] [address], [place] [address]- 6970 May, [facility] [id number] [place] [address] 90846- 7233 May, UTI (urinary tract infection) N39.0 [facility] [address], [place] [address]- 6966 May, [facility] [address] [address] 0498 May, [facility] [address] [address] 8496 May, [facility] [address], [place] [address]- 1551 May, [facility] [address], [place] [address]- 8628 Apr, Major depressive disorder, recurrent episode, moderate F33.1 and Generalized anxiety disorder F41.1 [facility] [address], [place] [address]- 3953 Apr, COPD (chronic obstructive pulmonary disease) J44.9 [facility] [address], [place] [address]- 2104 Apr, [facility] [address], [place] [address]- 7652 Apr, Atrial flutter I48.92 [facility] [address], [place] [address]- 1429 Apr, [facility] [address] [address] 4[address] Apr, [facility] [address], [place] [address]- 2450 Mar, [facility] [id number] [place] [address] 21506- 4636 Mar, [facility] [id number] [place] [address] 19790- 3316 Mar, [facility] [id number] [place] [address] 11994- 8861 Mar, Hyperlipidemia E78.5 ; Type 2 diabetes mellitus with diabetic polyneuropathy E11.42 ; Major depressive disorder, recurrent episode, moderate F33.1 and Chronic pain syndrome G89.4 [facility] [id number] [place] [address] 45667- 8500 Mar, [facility] [id number] [place] [address] 89591- 5576 Mar, [facility] [id number] [place] [address] 27818- 3989 Mar, [facility] [id number] [place] [address] 31782- 8943 Mar, [facility] [id number] [place] [address] 65993- 6627 Feb, COPD (chronic obstructive pulmonary disease) J44.9 and Back pain M54.9 [facility] [id number] [place] [address] 23009- 3914 Feb, [facility] [id number] [place] [address] 07520- 4509 Feb, [facility] [id number] [place] [address] 12738- 9136 Feb, [facility] [id number] [place] [address] 73519- 7998 Feb, [facility] [id number] [place] [address] 96955- 5236 Feb, [facility] [id number] [place] [address] 13145- 3773 Feb, [facility] [id number] [place] [address] 65212- 8833 Feb, [facility] [id number] [place] [address] 27009- 7329 Feb, [facility] [id number] [place] [address] 15068- 9520 Feb, Diabetes E11.9 ; Back pain M54.9 and COPD (chronic obstructive pulmonary disease) J44.9 [facility] [id number] [place] [address] 19846- 3308 Jan, [facility] [id number] [place] [address] 26335- 4496 Jan, Major depression, recurrent F33.9 and Generalized anxiety disorder F41.1 [facility] [id number] [place] [address] 87884- 0887 Jan, Chronic pain G89.29 [facility] [id number] [place] [address] 77873- 4294 Jan, [facility] [id number] [place] [address] 11425- 4958 Jan, [facility] [id number] [place] [address] 08809- 2477 Jan, [facility] [id number] [place] [address] 61477- 4780 Jan, [facility] [id number] [place] [address] 40420- 6364 Jan, Nicotine dependence F17.200 [facility] [id number] [place] [address] 27735- 2660 Jan, Nicotine dependence F17.200 and Back pain M54.9 [facility] [id number] [place] [address] 84854- 8805 Jan, [facility] [id number] [place] [address] 85372- 4323 [address], [address] [facility] [id number] [place] [address] 10867- 3888 25 Dec, 2014 Anxiety, generalized 300.02 and Major depression, recurrent 296.30 [facility] [address] 61321- 2759 [address], [address] [facility] [id number] [place] [address] 18277- 1990 [address], [address] [facility] [address] 88348- 3745 [address], [address] [facility] [id number] [place] [address] 81393- 9968 [address], [address] [facility] [id number] [place] [address] 72520- 7620 [address], [address] [facility] [id number] [place] [address] 28282- 9709 [address], [address] [facility] [id number] [place] [address] 74387- 2394 [address], [address] [facility] [id number] [place] [address] 75756- 3621 08 Dec, [address] [facility] [id number] [place] [address] 50362- 2647 08 Dec, 2014 Routine gynecological examination V72.31 ; Breast cancer screening V76.10 and Family history of breast cancer in first degree relative V16.3 [facility] [id number] [place] [address] 41740- 6460 [address], [address] [facility] [id number] [place] [address] 89086- 1670 [address], [address] [facility] [id number] [place] [address] 97673- 8666 Nov, [facility] [id number] [place] [address] 41802- 7836 Nov, [facility] [id number] [place] [address] 59138- 2427 Nov, Poor balance 781.99 and Vascular dementia, uncomplicated 290.40 [facility] [id number] [place] [address] 00685- 9354 Nov, [facility] [id number] [place] [address] 22921- 5957 Nov, Major depression, recurrent 296.30 and Anxiety, generalized 300.02 [facility] [id number] [place] [address] 01243- 2851 Nov, [facility] [id number] [place] [address] 01025- 6163 Nov, [facility] [id number] [place] [address] 56089- 6202 Nov, [facility] [id number] [place] [address] 17598- 1808 Nov, [facility] [id number] [place] [address] 34346- 1495 Nov, Vascular dementia, uncomplicated 290.[address] [facility] [address], [place] [address]- 8607 Nov, [facility] [address], [place] [address]- 2211 Nov, [facility] [id number] [place] [address] 24059- 6417 Nov, [facility] [address], [place] [address]- 1590 Oct, [facility] [address] [address] 8586 Oct, [facility] [address], [place] [address]- 8105 Oct, [facility] [id number] [address]- 9135 Oct, COPD (chronic obstructive pulmonary disease) [address] [facility] [id number] [place] [address] 00386- 6136 Oct, Major depression, recurrent 296.30 and Anxiety, generalized 300.02 [facility] [id number] [address]- 3114 Oct, [facility] [id number] [place] [address] 16674- 0058 Oct, [facility] [id number] [address]- 7954 Oct, [facility] [id number] [place] [address] 42224- 5677 Sep, Lumbago 724.2 and Anxiety state, unspecified 300.00 [facility] [id number] [address]- 3607 Sep, [facility] [address] [address] 9680 Sep, [facility] [address], [place] [address]- 3705 August, [facility] [address], [place] [address]- 0926 August, Major depression, recurrent 296.30 ; Anxiety, generalized 300.02 and No condition on [place] V71.09 [facility] [id number], [place] [address]- 8655 August, [facility] [id number], [place] [address]- 2921 August, [facility] [id number] [place] [address]- 4501 29 Jul, 2014 [facility] [place] [facility] [address] [id number] [place] [address]- 2576 14 Jul, 2014 [facility] [place] [facility] [address] [id number] [place] [address]- 1666 13 Jul, 2014 [facility] [place] [facility] [address] [id number] [place] [address]- 7478 30 Jun, 2014 [facility] [place] [facility] [address] [id number] [place] [address]- 9439 30 Jun, 2014 [facility] [place] [facility] [address] [id number] [place] [address]- 8625 27 Jun, 2014 [facility] [place] [facility] [address] [id number] [place] [address]- 5653 27 Jun, 2014 [facility] [place] [facility] [address] [id number] [place] [address]- 2308 26 Jun, 2014 [facility] [place] [facility] [address] [id number] [place] [address]- 8554 23 Jun, 2014 [facility] [place] [facility] [address] [id number] [place] [address]- 0702 23 Jun, 2014 [facility] [place] [facility] [address] [id number] [place] [address]- 5647 17 Jun, 2014 [facility] [place] [facility] [address] [id number] [place] [address]- 4584 13 Jun, 2014 [facility] [place] [facility] [address] [id number] [place] [address]- 5795 13 Jun, 2014 [facility] [place] [facility] [address] [id number] [place] [address]- 9577 10 Jun, 2014 [facility] [place] [facility] [address] [id number] [place] [address]- 9310 10 Jun, 2014 [facility] [place] [facility] [address] [id number] [place] [address]- 9153 07 Jun, 2014 [facility] [place] [facility] [address] [id number] [place] [address]- 4698 Jun, 2014 [facility] [place] [facility] [address] [id number] [place] [address]- 4045 Jun, 2014 [facility] [place] [facility] [address] [id number] [place] [address]- 5228 Jun, 2014 [facility] [place] [facility] [address] [id number] [place] [address]- 9523 May, 2014 [facility] [place] [facility] [address] [id number] [place] [address]- 2678 May, 2014 [facility] [place] [facility] [address] [id number] [place] [address]- 4565 May, 2014 [facility] [place] [facility] [address] [id number] [place] [address]- 0930 May, 2014 [facility] [place] [facility] [address] [id number] [place] [address]- 5254 May, 2014 [facility] [place] [facility] [address] [id number] [place] [address]- 7270 May, 2014 [facility] [place] [facility] [address] [id number] [place] [address]- 6250 May, 2014 [facility] [place] [facility] [address] [id number] [place] [address]- 9394 May, 2014 [facility] [place] [facility] [address] [id number] [place] [address]- 6077 May, 2014 [facility] [place] [facility] [address] [id number] [place] [address]- 9552 May, 2014 [facility] [place] [facility] [address] [id number] [place] [address]- 4712 May, 2014 [facility] [place] [facility] [address] [facility] [id number] [place] [address]- 3514 May, 2014 [facility] [place] [facility] [address] [id number] [place] [address]- 7036 May, [facility] [place] [facility] [address] [id number] [place] [address]- 6171 May, [facility] [place] [facility] [address] [id number] [place] [address]- 3606 Apr, [facility] [place] [facility] [address] [id number] [place] [address]- 5940 Apr, [facility] [place] [facility] [address] [id number] [place] [address] Apr, [facility] [place] [facility] [address] [id number] [place] [address] Apr, [facility] [place] [facility] [address] [id number] [place] [address] Apr, [facility] [place] [facility] [address] [id number] [place] [address] Apr, [facility] [place] [facility] [address] [id number] [place] [address] Apr, [facility] [place] [facility] [address] [id number] [place] [address] Apr, [facility] [place] [facility] [address] [id number] [place] [address] Apr, [facility] [place] [facility] [address] [id number] [place] [address] Apr, [facility] [place] [facility] [address] [id number] [place] [address] Apr, [facility] [place] [facility] [address] [id number] [place] [address] Apr, [facility] [place] [facility] [address] [id number] [place] [address] Mar, [facility] [place] [facility] [address] [id number] [place] [address] 31 Mar, 2014 [facility] [place] [facility] [address] [id number] [place] [address] 30 Mar, 2014 [facility] [place] [facility] [address] [id number] [place] [address] 30 Mar, 2014 [facility] [place] [facility] [address] [id number] [place] [address] 29 Mar, 2014 [facility] [place] [facility] [address] [id number] [place] [address] 29 Mar, 2014 [facility] [place] [facility] [address] [id number] [place] [address] Mar, [facility] [place] [facility] [address] [id number] [place] [address] Mar, [facility] [place] [facility] [address] [id number] [place] [address] 15 Mar, 2014 [facility] [place] [facility] [address] [id number] [place] [address] 15 Mar, 2014 [facility] [place] [facility] [address] [id number] [place] [address] 15 Mar, 2014 [facility] [place] [facility] [address] [id number] [place] [address] 15 Mar, 2014 [facility] [place] [facility] [address] [id number] [place] [address] 15 Mar, 2014 [facility] [place] [facility] [address] [id number] [place] [address] 15 Mar, 2014 [facility] [place] [facility] [address] [id number] [place] [address] 08 Mar, 2014 [facility] [place] [facility] [address] [id number] [place] [address] 08 Mar, 2014 [facility] [place] [facility] [address] [id number] [place] [address] 03 Mar, 2014 [facility] [place] [facility] [address] [id number] [place] [address] Mar, [facility] [place] [facility] [address] [id number] [place] [address] Mar, [facility] [place] [facility] [address] [id number] [place] [address] Mar, [facility] [place] [facility] [address] [id number] [place] [address] Feb, [facility] [place] [facility] [address] [id number] [place] [address] Feb, [facility] [place] [facility] [address] [id number] [place] [address] Feb, [facility] [place] [facility] [address] [id number] [place] [address] Feb, [facility] [place] [facility] [address] [id number] [place] [address] Feb, [facility] [place] [facility] [address] [id number] [place] [address] Feb, [facility] [place] [facility] [address] [id number] [place] [address] Feb, [facility] [place] [facility] [address] [id number] [place] [address] Feb, [facility] [place] [facility] [address] [id number] [place] [address] Feb, [facility] [place] [facility] [address] [id number] [place] [address] Feb, [facility] [place] [facility] [address] [id number] [place] [address] Feb, [facility] [place] [facility] [address] [id number] [place] [address] Feb, [facility] [place] [facility] [address] [id number] [place] [address] Feb, [facility] [place] [facility] [address] [id number] [place] [address] 3048 Feb, [facility] [place] [facility] [address] [id number] [place] [address] 75[address] Feb, [facility] [place] [facility] [address] [id number] [place] [address] Feb, [facility] [place] [facility] [address] [id number] [place] [address]- 0765 Feb, [facility] [place] [facility] [address] [id number] [place] [address]- 1529 Jan, [facility] [place] [facility] [address] [id number] [place] [address]- 5414 Jan, [facility] [place] [facility] [address] [id number] [place] [address] 5[address] Jan, [facility] [place] [facility] [address] [id number] [place] [address] 4[address] Jan, [facility] [place] [facility] [address] [id number] [place] [address] 1224 Jan, [facility] [place] [facility] [address] [id number] [place] [address]- 8174 Jan, [facility] [place] [facility] [address] [id number] [place] [address]- 0746 Jan, [facility] [place] [facility] [address] [id number] [place] [address]- 3064 Jan, [facility] [place] [facility] [address] [id number] [place] [address]- 0588 Jan, [facility] [place] [facility] [address] [id number] [place] [address]- 6786 Jan, [facility] [place] [facility] [address] [id number] [place] [address]- 1365 Jan, [facility] [place] [facility] [address] [id number] [place] [address]- 9364 Dec, [facility] [place] [facility] [address] [id number] [place] [address]- 1428 Dec, [facility] [place] [facility] [address] [id number] [place] [address]- 3073 Nov, [facility] [place] [facility] [address] [id number] [place] [address]- 8877 Nov, [facility] [place] [facility] [address] [id number] [place] [address]- 4176 Nov, [facility] [place] [facility] [address] [id number] [place] [address]- 1699 Nov, [facility] [place] [facility] [address] [id number] [place] [address]- 6656 Nov, [facility] [place] [facility] [address] [id number] [place] [address]- 4827 Nov, [facility] [place] [facility] [address] [id number] [place] [address]- 0075 Nov, [facility] [place] [facility] [address] [id number] [place] [address]- 0844 Oct, [facility] [place] [facility] [address] [id number] [place] [address]- 3314 Oct, [facility] [place] [facility] [address] [id number] [place] [address]- 7852 Oct, [facility] [place] [facility] [address] [id number] [place] [address]- 2951 Oct, [facility] [place] [facility] [address] [id number] [place] [address]- 4052 Sep, [facility] [place] [facility] [address] [id number] [place] [address]- 1430 Sep, [facility] [place] [facility] [address] [id number] [place] [address]- 0571 Sep, [facility] [place] [facility] [address] [id number] [place] [address]- 4366 Sep, [facility] [place] [facility] [address] [id number] [place] [address]- 4071 Sep, [facility] [place] [facility] [address] [id number] [place] [address]- 9893 Sep, [facility] [place] [facility] [address] [id number] [place] [address]- 3587 Sep, [facility] [place] [facility] [address] [id number] [place] [address]- 6382 Sep, [facility] [place] [facility] [address] [id number] [place] [address]- 5013 Sep, [facility] [place] [facility] [address] [id number] [place] [address]- 2759 Sep, [facility] [place] [facility] [address] [id number] [place] [address]- 8185 Sep, [facility] [place] [facility] [address] [id number] [place] [address]- 2569 Sep, [facility] [place] [facility] [address] [id number] [place] [address]- 5123 Sep, [facility] [place] [facility] [address] [id number] [place] [address]- 4167 Sep, [facility] [place] [facility] [address] [id number] [place] [address]- 3028 August, [facility] [place] [facility] [address] [id number] [place] [address]- 3357 August, [facility] [place] [facility] [address] [id number] [place] [address]- 9343 August, [facility] [place] [facility] [address] [id number] [place] [address]- 4263 August, [facility] [place] [facility] [address] [id number] [place] [address]- 8888 August, [facility] [address] [id number] [place] [address]- 3011 August, [facility] [place] [facility] [address] [id number] [place] [address]- 3077 August, [facility] [place] [facility] [address] [id number] [place] [address] 5404 August, [facility] [place] [facility] [address] [id number] [place] [address]- 6430 August, [facility] [place] [facility] [address] [id number] [place] [address]- 2851 August, [facility] [place] [facility] [address] [id number] [place] [address]- 9220 August, [facility] [place] [facility] [address] [id number] [place] [address]- 0907 August, [facility] [place] [facility] [address] [id number] [place] [address]- 7696 August, [facility] [place] [facility] [address] [id number] [place] [address]- 0872 August, [facility] [place] [facility] [address] [id number] [place] [address]- 4112 August, [facility] [place] [facility] [address] [id number] [place] [address]- 6887 August, [facility] [place] [facility] [address] [id number] [place] [address]- 3461 August, [facility] [place] [facility] [address] [id number] [place] [address]- 1316 August, [facility] [place] [facility] [address] [id number] [place] [address] August, [facility] [place] [facility] [address] [id number] [place] [address] Jul, [facility] [place] [facility] [address] [id number] [place] [address]- 4868 Jul, [facility] [place] [facility] [address] [id number] [place] [address]- 3162 Jul, [facility] [place] [facility] [address] [id number] [place] [address]- 0187 Jul, [facility] [place] [facility] [address] [id number] [place] [address]- 7599 Jun, [facility] [place] [facility] [address] [id number] [place] [address]- 0549 Jun, [facility] [place] [facility] [address] [id number] [place] [address]- 7398 Jun, [facility] [place] [facility] [address] [id number] [place] [address]- 8975 Jun, [facility] [place] [facility] [address] [id number] [place] [address]- 0700 Jun, [facility] [place] [facility] [address] [id number] [place] [address]- 9537 Jun, [facility] [place] [facility] [address] [id number] [place] [address]- 7095 Jun, [facility] [place] [facility] [address] [id number] [place] [address]- 2491 Jun, [facility] [place] [facility] [address] [id number] [place] [address]- 1348 Jun, [facility] [place] [facility] [address] [id number] [place] [address]- 4161 Jun, [facility] [place] [facility] [address] [id number] [place] [address]- 3070 May, [facility] [place] [facility] [address] [id number] [place] [address]- 3310 May, [facility] [place] [facility] [address] [id number] [place] [address]- 1293 May, [facility] [place] [facility] [address] [id number] [place] [address]- 4467 May, [facility] [place] [facility] [address] [id number] [place] [address]- 8856 May, [facility] [place] [facility] [address] [id number] [place] [address]- 1766 May, [facility] [place] [facility] [address] [id number] [place] [address]- 4070 May, [facility] [place] [facility] [address] [id number] [place] [address]- 7664 May, [facility] [place] [facility] [address] [id number] [place] [address]- 7156 May, [facility] [place] [facility] [address] [id number] [place] [address]- 6808 18 May, 2013 [facility] [place] [facility] [address] [id number] [place] [address]- 8485 18 May, 2013 [facility] [place] [facility] [address] [id number] [place] [address]- 9357 17 May, 2013 [facility] [place] [facility] [address] [id number] [place] [address]- 2313 May, [facility] [place] [facility] [address] [id number] [place] [address]- 8417 May, [facility] [place] [facility] [address] [id number] [place] [address]- 2544 10 May, 2013 [facility] [place] [facility] [address] [id number] [place] [address]- 2546 07 May, 2013 [facility] [place] [facility] [address] [id number] [place] [address]- 1282 07 May, 2013 [facility] [place] [facility] [address] [id number] [place] [address]- 9130 Apr, [facility] [place] [facility] [address] [id number] [place] [address]- 2381 15 Apr, 2013 [facility] [address] [id number] [place] [address]- 5676 Apr, [facility] [address] [id number] [place] [address]- 4037 Apr, [facility] [address] [id number] [place] [address]- 8115 Apr, [facility] [address] [id number] [place] [address]- 0293 Apr, [facility] [address] [id number] [place] [address]- 8834 Apr, [facility] [address] [id number] [place] [address]- 9675 Mar, [facility] [address] [id number] [place] [address]- 8560 Mar, [facility] [address] [id number] [place] [address]- 5377 Mar, [facility] [address] [id number] [place] [address]- 2291 Mar, [facility] [address] [id number] [place] [address]- 5869 Mar, [facility] [address] [id number] [place] [address]- 8703 Mar, [facility] [address] [id number] [place] [address]- 0701 Mar, [facility] [address] [id number] [place] [address]- 5792 Mar, [facility] [address] [id number] [place] [address]- 0416 Mar, [facility] [address] [id number] [place] 2909 Mar, [facility] [place] [facility] [address] [id number] [place] [address]- 4180 04 Mar, 2013 [facility] [place] [facility] [address] [id number] [place] [address]- 8235 Feb, [facility] [place] [facility] [address] [id number] [place] [address]- 4776 Feb, [facility] [place] [facility] [address] [id number] [place] [address]- 1166 Feb, [facility] [place] [facility] [address] [id number] [place] [address]- 7350 Feb, [facility] [place] [facility] [address] [id number] [place] [address]- 4747 Feb, [facility] [place] [facility] [address] [id number] [place] [address]- 7382 Feb, [facility] [place] [facility] [address] [id number], [place] [address]- 3900 15 Feb, 2013 [facility] [place] [facility] [address] [id number] [place] [address]- 5752 14 Feb, 2013 [facility] [place] [facility] [address] [id number], [place] [address]- 1528 14 Feb, 2013 [facility] [place] [facility] [address] [id number], [place] [address]- 0534 13 Feb, 2013 [facility] [place] [facility] [address] [id number], [place] [address]- 1610 13 Feb, 2013 [facility] [place] [facility] [address] [id number], [place] [address]- 0349 12 Feb, 2013 [facility] [place] [facility] [address] [id number], [place] [address]- 9556 12 Feb, 2013 [facility] [place] [facility] [address] [id number], [place] [address]- 6238 11 Feb, 2013 [facility] [place] [facility] [address] [id number], [place] [address]- 7299 05 Feb, 2013 [facility] [place] [facility] [address] [id number] [place] [address]- 5661 05 Feb, 2013 [facility] [place] [facility] [address] [id number], [place] [address]- 8713 28 Jan, 2013 [facility] [place] [facility] [address] [id number] [place] [address]- 8406 24 Jan, 2013 [facility] [place] [facility] [address] [id number] [place] [address]- 2886 24 Jan, 2013 [facility] [place] [facility] [address] [id number] [place] [address]- 5077 24 Jan, 2013 [facility] [place] [facility] [address] [id number] [place] [address]- 4848 Jan, [facility] [place] [facility] [address] [id number], [place] [address]- 8008 Jan, [facility] [place] [facility] [address] [id number] [place] [address]- 3804 Jan, [facility] [place] [facility] [address] [facility] [id number], [place] [address]- 7898 10 Jan, 2013 [facility] [place] [facility] [address] [facility] [id number], [place] [address]- 0212 10 Jan, 2013 [facility] [place] [facility] [address] [id number], [place] [address]- 4239 27 Sep, 2012 [facility] [place] [facility] [address] [id number], [place] [address]- 1597 20 Sep, 2012 [facility] [place] [facility] [address] [id number], [place] [address]- 4827 19 Sep, 2012 [facility] [place] [facility] [address] [facility] [id number], [place] [address]- 8148 10 Sep, 2012 [facility] [place] [facility] [address] [facility] [id number], [place] [address]- 3003 04 Sep, 2012 [facility] [place] [facility] [address] [id number] [place] [address]- 6118 Dec, [facility] [place] [facility] [address] [id number] [place] [address]- 2595 Nov, [facility] [place] [facility] [address] [id number] [place] [address]- 5747 Nov, [facility] [place] [facility] [address] [id number] [place] [address]- 1613 Nov, [facility] [place] [facility] [address] [id number] [place] [address]- 9019 Nov, [facility] [place] [facility] [address] [id number] [place] [address]- 0615 Nov, [facility] [place] [facility] [address] [id number] [place] [address]- 9749 Nov, [facility] [place] [facility] [address] [id number] [place] [address]- 7465 Nov, [facility] [place] [facility] [address] [id number] [place] [address]- 4890 Nov, [facility] [place] [facility] [address] [id number] [place] [address]- 1989 Nov, [facility] [place] [facility] [address] [id number] [place] [address]- 1011 Nov, [facility] [place] [facility] [address] [id number] [place] [address]- 5879 Oct, [facility] [place] [facility] [address] [id number] [place] [address]- 1773 Oct, [facility] [place] [facility] [address] [id number] [place] [address]- 7125 Oct, [facility] [place] [facility] [address] [id number] [place] [address]- 9903 Oct, [facility] [place] [facility] [address] [id number] [place] [address]- 1193 Oct, [facility] [address] [id number] [place] [address]- 7631 Oct, [facility] [place] [facility] [address] [id number] [place] [address]- 5808 Oct, [facility] [place] [facility] [address] [id number] [place] [address]- 3722 Oct, [facility] [place] [facility] [address] [id number] [place] [address]- 7982 Sep, [facility] [place] [facility] [address] [id number] [place] [address]- 3532 Sep, [facility] [place] [facility] [address] [id number] [place] [address]- 6489 Sep, [facility] [place] [facility] [address] [id number] [place] [address]- 7975 Sep, [facility] [place] [facility] [address] [id number] [place] [address]- 4940 Sep, [facility] [place] [facility] [address] [id number] [place] [address]- 9801 Sep, [facility] [place] [facility] [address] [id number] [place] [address]- 7285 Sep, [facility] [place] [facility] [address] [id number], [place] [address]- 4646 Sep, [facility] [place] [facility] [address] [id number], [place] [address]- 6711 August, [facility] [place] [facility] [address] [id number] [place] [address]- 5999 August, [facility] [place] [facility] [address] [id number] [place] [address]- 3872 August, [facility] [place] [facility] [address] [id number] [place] [address]- 6110 August, [facility] [place] [facility] [address] [id number] [place] [address]- 5920 August, [facility] [address] [id number] [place] [address]- 8109 Jul, [facility] [address] [id number] [place] [address]- 1196 Jul, [facility] [address] [id number] [place] [address]- 0839 Jul, [facility] [address] [id number] [place] [address]- 7787 Jul, [facility] [address] [id number] [place] [address]- 5310 Jul, [facility] [address] [id number] [place] [address]- 4889 Jun, [facility] [address] [id number] [place] [address]- 3190 Jun, [facility] [address] [id number] [place] [address]- 2562 15 Jun, 2012 [facility] [address] [id number] [place] [address]- 4961 14 Jun, 2012 [facility] [address] [facility] [id number] [place] [address]- 1273 Jun, [facility] [place] [facility] [address] [id number] [place] [address]- 8672 Jun, [facility] [place] [facility] [address] [id number] [place] [address]- 3019 Jun, [facility] [place] [facility] [address] [id number] [place] [address]- 0386 Jun, [facility] [place] [facility] [address] [id number] [place] [address]- 2446 Jun, [facility] [place] [facility] [address] [id number] [place] [address]- 4201 May, [facility] [address] [id number] [place] [address]- 2539 May, [facility] [address] [id number] [place] [address]- 3702 May, [facility] [address] [id number] [place] [address] May, [facility] [address] [id number] [place] [address] Apr, [facility] [address] [id number] [place] [address] Apr, [facility] [address] [id number] [place] [address] Apr, [facility] [address] [id number] [place] [address] Apr, [facility] [address] [id number] [place] [address] Apr, [facility] [address] [id number] [place] [address] 270[address] Apr, [facility] [address] [id number] [place] [address] Apr, [facility] [address] [id number] [place] [address] Mar, [facility] [address] [place] [id number] Mar, [facility] [address] [id number] [place] [address] Mar, [facility] [address] [id number] [place] [address]598 Mar, [facility] [address] [id number] [place] [address] Mar, [facility] [address] [id number] [place] [address] Mar, [facility] [place] [facility] [address] [id number] [place] [address] Mar, [facility] [place] [facility] [address] [id number] [place] [address] Mar, [facility] [place] [facility] [address] [facility] [id number] [place] [address]476 Mar, [facility] [place] [facility] [address] [id number] [place] [address]36 Mar, [facility] [place] [facility] [address] [id number] [place] [address] Mar, [facility] [place] [facility] [address] [id number] [place] [address]656 Mar, [facility] [place] [facility] [address] [id number] [place] [address] 4670 Mar, [facility] [place] [facility] [address] [id number] [place] [address] 78[address] Mar, [facility] [place] [facility] [address] [id number] [place] [address] 4567 Mar, [facility] [place] [facility] [address] [id number] [place] [address] 8216 Mar, [facility] [place] [facility] [address] [id number], [place] [address] Mar, [facility] [place] [facility] [address] [id number], [place] [address] 4635 Feb, [facility] [place] [facility] [address] [id number] [place] [address]- 4086 Feb, [facility] [place] [facility] [address] [id number] [place] [address]- 36[address] Feb, [facility] [place] [facility] [address] [id number] [place] [address]- 9477 Feb, [facility] [place] [facility] [address] [id number] [place] [address]851 Feb, [facility] [place] [facility] [address] [id number] [place] [address] 9530 Feb, [facility] [place] [facility] [address] [id number] [place] [address] 4338 Feb, [facility] [place] [facility] [address] [id number] [place] [address]70 Feb, [facility] [place] [facility] [address] [id number] [place] [address] 3275 Feb, [facility] [place] [facility] [address] [id number] [place] [address] 6262 Feb, [facility] [place] [facility] [address] [id number] [place] [address]- 4846 Feb, [facility] [place] [facility] [address] [id number] [place] [address]- 2917 Feb, [facility] [place] [facility] [address] [id number] [place] [address]367 Feb, [facility] [place] [facility] [address] [id number] [place] [address]- 9968 Feb, [facility] [place] [facility] [address] [facility] [id number] [place] [address]777 Feb, [facility] [place] [facility] [address] [id number] [place] [address] 0616 Feb, [facility] [place] [facility] [address] [id number] [place] [address]- [address] Jan, [facility] [place] [facility] [address] [id number] [place] [address] 5311 Jan, [facility] [place] [facility] [address] [facility] [id number] [place] [address]- 1162 Jan, [facility] [place] [facility] [address] [id number] [place] [address]- 2588 Jan, [facility] [place] [facility] [address] [id number] [place] [address]- 9686 Jan, [facility] [place] [facility] [address] [id number] [place] [address]- 1688 Jan, [facility] [place] [facility] [address] [id number] [place] [address]- 9277 Jan, [facility] [place] [facility] [address] [id number] [place] [address]- 5[address] Jan, [facility] [place] [facility] [address] [id number] [place] [address]- 36[address] Jan, [facility] [place] [facility] [address] [id number] [place] [address] Jan, [facility] [place] [facility] [address] [id number] [place] [address]- 1383 Jan, [facility] [place] [facility] [address] [id number] [place] [address]- 4857 Jan, [facility] [place] [facility] [address] [id number] [place] [address]- 7073 Jan, [facility] [place] [facility] [address] [id number] [place] [address]- 5723 Jan, [facility] [place] [facility] [address] [id number] [place] [address]- 3961 Jan, [facility] [place] [facility] [address] [id number], [place] [address] Jan, [facility] [place] [facility] [address] [id number] [place] [address]- 7219 Jan, [facility] [place] [facility] [address] [id number] [place] [address]- 7867 Dec, [facility] [place] [facility] [address] [id number] [place] [address] Dec, [facility] [place] [facility] [address] [id number], [place] [address] 18 Dec, 2011 [facility] [place] [facility] [address] [id number] [place] [address] 2546 18 Dec, 2011 [facility] [place] [facility] [address] [id number] [place] [address] 2546 10 Dec, 2011 [facility] [place] [facility] [address] [id number] [place] [address] 2546 10 Dec, 2011 [facility] [place] [facility] [address] [id number] [place] [address] 2546 10 Dec, 2011 [facility] [place] [facility] [address] [id number] [place] [address]- [address] 07 Dec, 2011 [facility] [place] [facility] [address] [id number] [place] [address]- [address] 30 Nov, 2011 [facility] [place] [facility] [address] [id number] [place] [address]- 2035 Nov, [facility] [place] [facility] [address] [id number] [place] [address]- 1980 Nov, [facility] [place] [facility] [address] [id number] [place] [address]- 1186 Nov, [facility] [place] [facility] [address] [id number] [place] [address]- 2548 Nov, [facility] [place] [facility] [address] [id number] [place] [address]- 2548 Nov, [facility] [place] [facility] [address] [id number] [place] [address]- 2548 Oct, [facility] [place] [facility] [address] [id number] [place] [address] Oct, [facility] [place] [facility] [address] [id number] [place] [address] Oct, [facility] [place] [facility] [address] [id number] [place] [address] Oct, [facility] [place] [facility] [address] [id number] [place] [address] Oct, [facility] [address] [id number] [place] [address] Oct, [facility] [place] [facility] [address] [id number] [place] [address] Oct, [facility] [address] [id number] [place] [address] Sep, [facility] [place] [facility] [address] [id number] [place] [address] Sep, [facility] [address] [id number] [place] [address] Sep, [facility] [place] [facility] [address] [id number] [place] [address] Sep, [facility] [address] [id number] [place] [address] Sep, [facility] [address] [id number] [place] [address] 15 Sep, 2011 [facility] [place] [facility] [address] [id number] [place] [address] Sep, [facility] [address] [id number] [place] [address] Sep, [facility] [place] [facility] [address] [id number] [place] [address] 05 Sep, 2011 [facility] [place] [facility] [address] [id number] [place] [address] 04 Sep, 2011 [facility] [place] [facility] [address] [id number] [place] [address] August, [facility] [place] [facility] [address] [id number] [place] [address]596 16 Aug, 2011 [facility] [place] [facility] [address] [id number] [place] [address] August, [facility] [address] [id number] [place] [address] 46[address] August, [facility] [place] [facility] [address] [id number] [place] [address] 7877 August, [facility] [place] [facility] [address] [id number] [place] [address] Jul, [facility] [place] [facility] [address] [id number] [place] [address] Jul, [facility] [place] [facility] [address] [id number] [place] [address] 99[address] Jul, [facility] [place] [facility] [address] [id number] [place] [address]27 Jul, [facility] [place] [facility] [address] [id number] [place] [address] 9427 Jul, [facility] [place] [facility] [address] [id number] [place] [address]- [address] Jul, [facility] [place] [facility] [address] [id number] [place] [address] 1492 Jul, [facility] [place] [facility] [address] [id number] [place] [address] 46[address] Jun, [facility] [place] [facility] [address] [id number] [place] [address]- 9668 Jun, [facility] [place] [facility] [address] [id number] [place] [address] 1637 Jun, [facility] [place] [facility] [address] [id number] [place] [address]- [address] Jun, [facility] [place] [facility] [address] [id number] [place] [address] 5740 Jun, [facility] [place] [facility] [address] [id number] [place] [address] 9042 May, [facility] [place] [facility] [address] [id number] [place] [address]494 May, [facility] [place] [facility] [address] [id number] [place] [address]- 2010 May, [facility] [place] [facility] [address] [id number] [place] [address] 2927 May, [facility] [place] [facility] [address] [id number] [place] [address] 26[address] May, [facility] [place] [facility] [address] [id number] [place] [address], [place] [address]38 May, [facility] [place] [facility] [address] [facility] [id number] [place] [address], [place] [address] Apr, [facility] [place] [facility] [address] [facility] [id number] [place] [address] 0294 Mar, [facility] [place] [facility] [id number] [place] [address], [place] [address]- [address] Feb, [facility] [place] [facility] [address] [facility] [id number] [place] [address] 8747 Feb, [facility] [place] [facility] [id number] [place] [address] Feb, [facility] [place] [facility] [address] [facility] [id number] [place] [address] 8549 Feb, [facility] [place] [facility] [address] [facility] [id number] [place] [address]841 31 Jan, 2011 [facility] [place] [facility] [address] [id number] [place] [address]- [address] Jan, [facility] [place] [facility] [address] [facility] [id number] [place] [address] 134[address] Jan, [facility] [place] [facility] [address] [facility] [id number] [place] [address]- 3918 24 Jan, 2011 [facility] [place] [facility] [address] [facility] [id number] [place] [address]- 3900 14 Jan, 2011 [facility] [address] [id number] [place] [address]- 3300 19 Dec, 2010 [facility] [place] [facility] [address] [id number] [place] [address]- 6696 20 Oct, 2010 [facility] [place] [facility] [address] [id number] [place] [address]- 1836 13 Aug, 2010 [facility] [place] [facility] [address] [id number] [place] [address]- 7956 29 Mar, 2010 [facility] [place] [facility] [address] [id number] [place] [address]- 1056 27 Mar, 2010 [facility] [place] [facility] [address] [id number] [place] [address] 16 Mar, 2010 [facility] [place] [facility] [address] [id number] [place] [address]- 5562 15 Mar, 2010 [facility] [place] [facility] [address] [id number], [place] [address] 3593 15 Mar, 2010 [facility] [place] [facility] [address] [id number] [place] [address]- 2548 08 Mar, 2010 [facility] [place] [facility] [address] [facility] [id number], [place] [address]887 03 Mar, 2010 [facility] [place] [facility] [address] [id number], [place] [address] 7990 24 Feb, 2010 [facility] [place] [facility] [address] [id number], [place] [address]307 24 Feb, 2010 [facility] [place] [facility] [address] [id number], [place] [address]- 8750 15 Feb, 2010 [facility] [place] [facility] [address] [id number], [place] [address]209 19 Jan, 2010 [facility] [place] [facility] [address] [id number], [place] [address] 8670 18 Jan, 2010 [facility] [place] [facility] [address] [id number], [place] [address] Jan, [facility] [place] [facility] [address] [id number] [place] [address]- 2328 Nov, [facility] [place] [facility] [address] [id number], [place] [address]- 6318 Sep, [facility] [place] [facility] [address] [facility] [id number] [place] [address]- 9426 August, [facility] [place] [facility] [address] [id number] [place] [address]- 8363 Mar, [facility] [place] [facility] [address] [id number] [place] [address]- 9023 Mar, [facility] [place] [facility] [address] [facility] [id number] [place] [address]- 3551 Feb, [facility] [place] [facility] [address] [facility] [id number], [place] [address]- 4852 Feb, [facility] [place] [facility] [address] [facility] [id number], [place] [address]- 7559 Feb, [facility] [place] [facility] [address] [facility] [id number], [place] [address]- 8451 Feb, [facility] [place] [facility] [address] [facility] [id number], [place] [address]- 7728 Feb, [facility] [place] [facility] [address] [facility] [id number], [place] [address]- 1253 27 Jan, 2009 [facility] [place] [facility] [address] [facility] [id number], [place] [address]- 1282 Jan, [facility] [place] [facility] [address] [facility] [id number], [place] [address]- 5597 20 Jan, 2009 [facility] [place] [facility] [address] [facility] [id number], [place] [address]- 1596 Jan, [facility] [place] [facility] [address] [facility] [id number], [place] [address]- 8905 Nov, [facility] [place] [facility] [address] [facility] [id number] [place] [address]- [address] 16 Sep, 2008 [facility] [address] [facility] [id number], [place] [address] August, [facility] [address] [facility] [id number], [place] [address] Jul, [facility] [address] [facility] [id number], [place] [address]- [address]15 May, IMMUNIZATIONS No Known Immunizations SOCIAL HISTORY Never Assessed REASON FOR VISIT Medication Request PLAN OF CARE VITAL SIGNS MEDICATIONS Unknown [...] Knee Surgery 07/16/17 Hospitalization History [facility]- left hand/wrist swelling 10/09/2017
--- OUTSIDE RECORDS SUMMARY | 2018-01-01 12:57 | XMS REPORT ---
Author Author PATRICK GALAVIZ Organization [facility] Address [address] [place] [address] Care Team Providers Care Management Planner Name Role Phone PATRICK GALAVIZ Unavailable PROBLEMS Type Condition ICD9-CM Code VQG20-CZ Code Onset Dates Condition Status SNOMED Code Problem History of common bile duct surgery Z98.89 Active 597433269 Problem Barretts esophagus K22.70 Active 554714932 Problem 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 Active 70949356 Problem Colon polyp K63.5 Active 16416366 Problem Bilateral low back pain without sciatica M54.5 Active 208245093 Problem Screening breast examination Z12.39 Active 026677054 Problem Postmenopausal Z78.0 Active 85780054 Problem Osteopenia M85.80 Active 020637627 Problem Cigarette nicotine dependence without complication F17.210 Active 83388632 Problem Type 2 diabetes mellitus with diabetic peripheral angiopathy without gangrene E11.51 Active 414546768 Problem Vascular dementia without behavioral disturbance F01.50 Active 65260309071678834 Problem Unspecified atherosclerosis of pic[place] arteries of extremities, unspecified extremity I70.209 Active 437675235424231 Problem Arthritis M19.90 Active 9345279 Problem Chronic atrial fibrillation I48.2 Active 664321299 Problem Chronic obstructive pulmonary disease with acute lower respiratory infection J44.0 Active 890610405 Problem Other chronic pancreatitis K86.1 Active 985858035 Problem Stress incontinence of urine N39.3 Active 77667628 Problem Controlled type 2 diabetes mellitus without complication, without long -term current use of insulin E11.9 Active 108997707 Problem Unspecified psychosis F29 Active 58731635 Problem Xeroderma Q80.9 Active 60235105 Problem COPD (chronic obstructive pulmonary disease) J44.9 Active 56628110 Problem Dementia without behavioral disturbance, unspecified dementia type F03.90 Active 78228467 Problem Gastroparesis K31.84 Active 126887569 Problem Type 2 diabetes mellitus with diabetic neuropathy, without long-term current use of insulin E11.40 Active 95544283 Problem Osteoporosis M81.0 Active 27938826 Problem Atherosclerosis of picayune artery of both lower extremities with intermittent claudication I70.213 Active 011510420197434 Problem Hyperlipidemia E78.5 Active 31324322 Problem Diabetic polyneuropathy associated with type 2 diabetes mellitus E11.42 Active 21264370 Problem Essential tremor G25.0 Active 02211036 Problem 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 Active 9104873732054 Problem Generalized anxiety disorder F41.1 Active 212678490 Problem Gastroesophageal reflux disease, esophagitis presence not specified K21.9 Active 237895991 Problem Coronary artery disease involving picayune coronary artery of picayune heart with other form of angina pectoris I25.118 Active 0761601250892 Problem Postconcussion syndrome F07.81 Active 02332743 Problem Chronic pain syndrome G89.4 Active 525558656 Problem Migraine without aura and without status migrainosus, not intractable G43.009 Active 502026330 Problem Paroxysmal atrial fibrillation I48.0 Active 031558097 Problem Migraine without aura and with status migrainosus, not intractable G43.001 Active 836007462 Problem Cervicalgia M54.2 Active 7882714644983 Problem Acute exacerbation of chronic obstructive pulmonary disease (COPD) J44.1 Active 661073504 Problem Major depressive disorder, recurrent episode, moderate F33.1 Active 755437436 Problem Crohn''s disease without complication, unspecified gastrointestinal tract location K50.90 Active 95666478 Problem Chronic fatigue R53.82 Active 48854792 Problem Bipolar affective disorder, currently depressed, moderate F31.32 Active 816367880 ALLERGIES No Information ENCOUNTERS Encounter Location Date Diagnosis [facility] [address] [facility] [id number] [address] Nov, [facility] [id number] [address] Nov, [facility] [id number], [place] [address] Oct, [facility] [address] [facility] [id number], [place] [address] Oct, Edema of both legs R60.0 [facility] [address], [place] [address] Oct, [facility] [address] [id number], [place] [address] Sep, [facility] [address], [place] [address] 4[address] Sep, [facility] [id number] [place] [address] 61376- 7326 Sep, [facility] [id number] [place] [address] 30844- 2820 Sep, Encounter for well woman exam with routine gynecological exam Z01.419 ; Screening for STDs (sexually transmitted diseases) Z11.3 ; Screening breast examination Z12.31 and Overweight (BMI 25.0-29.9) E66.3 [facility] [id number] [place] [address] 96318- 0979 Sep, [place] [address], [place] [address] 1075 Sep, [facility] [address] [id number] [address] 5835 Sep, [facility] [address], [place] [address] 5164 August, [facility] [address], [place] [address] August, [facility] [address], [place] [address] 9616 August, Type 2 diabetes mellitus with diabetic neuropathy, without long-term current use of insulin E11.40 and Sprain of right ankle, unspecified ligament, initial encounter S93.401A [facility] [address], [place] [address] August, [facility] [address], [place] [address] 2248 August, [facility] [id number] [place] [address] 43618- 2548 August, [facility] [id number] [place] [address] 19519- 9787 August, Gastroesophageal reflux disease, esophagitis presence not specified K21.9 [facility] [address] 9[address]61- 1662 August, [facility] [id number] [place] [address] 58034- 8691 August, [facility] [place] [address] 95652- 1620 August, [facility] [id number] [place] [address] 41075- 5477 August, Type 2 diabetes mellitus with diabetic neuropathy, without long-term current use of insulin E11.40 and Elevated liver enzymes R74.8 [facility] [id number] [place] [address] 42101- 3833 Jul, [facility] [place] [id number] [place] [address] 15867- 2702 Jul, Cough R05 [facility] [id number] [place] [address] 59638- 2549 Jul, [facility] [id number] [place] [address] 68471- 8918 Jul, [facility] [id number] [place] [address] 37217- 0460 Jul, Bipolar affective disorder, currently depressed, moderate F31.32 ; Vascular dementia without behavioral disturbance F01.50 and Generalized anxiety disorder F41.1 [facility] [id number] [place] [address] 79231- 0108 Jul, [facility] [id number] [place] [address] 95600- 5017 Jul, Type 2 diabetes mellitus with diabetic neuropathy, without long-term current use of insulin E11.40 and Elevated liver enzymes R74.8 [facility] [address] 39327- 2082 Jul, [facility] [address] 81691- 0632 Jul, [facility] [address] 56415- 5386 Jul, [facility] [address] 71829- 7531 Jul, Post-menopausal Z78.0 [facility] [address] 71820- 9446 Jul, Stress incontinence of urine N39.3 [facility] [address] 61236- 0597 Jul, [facility] [address] 61645- 9321 Jul, [facility] [address] 57195- 5931 Jul, Stress incontinence of urine N39.3 and Cough R05 [facility] [place] [id number] [place] [address] 90328- 5964 Jul, [facility] [address] 20216- 7877 Jul, [facility] [id number] [place] [address] 58950- 7301 Jul, [facility] [address] 71619- 1649 Jul, Gastroesophageal reflux disease, esophagitis presence not specified K21.9 [facility] [id number] [place] [address] 39576- 6348 Jun, Diabetic polyneuropathy associated with type 2 diabetes mellitus E11.42 [facility] [id number] [place] [address] 77669- 0420 28 Jun, 2017 Diabetic polyneuropathy associated with type 2 diabetes mellitus E11.42 ; Coronary artery disease involving picayune coronary artery of picayune heart with other form of angina pectoris I25.118 and Paroxysmal atrial fibrillation I48.0 [facility] [id number] [place] [address] 97530- 2301 Jun, [facility] [id number] [place] [address] 12708- 6826 Jun, [facility] [id number] [place] [address] 80604- 0048 Jun, Gastroenteritis K52.9 [facility] [place] [id number] [place] [address] 81656- 4730 Jun, Gastroenteritis K52.9 [facility] [id number] [place] [address] 19732- 3832 Jun, [facility] [id number] [place] [address] 56889- 5414 Jun, [facility] [place] [id number] [place] [address] 63087- 9053 Jun, Sprain of right ankle, unspecified ligament, [...] unspecified gastrointestinal tract location K50.90 [facility] [id number] [place] [address] 73506 -5945 Jun, Cough R05 and Chronic obstructive pulmonary disease with acute lower respiratory infection J44.0 [facility] [id number] [place] [address] 15839- 2751 16 Jun, 2017 [facility] [id number] [place] [address] 51265- 3658 Jun, Coughing R05 ; Unspecified atherosclerosis of picayune arteries of extremities, unspecified extremity I70.209 ; Type 2 diabetes mellitus with diabetic peripheral angiopathy without gangrene E11.51 ; Crohn''s disease without complication, unspecified gastrointestinal tract location K50.90 ; Other chronic pancreatitis K86.1 and Chronic atrial fibrillation I48.2 [facility] [id number] [place] [address] 24222 -9815 Jun, [facility] [id number] [place] [address] 25085- 8944 Jun, Bipolar affective disorder, currently depressed, moderate F31.32 ; Vascular dementia without behavioral disturbance F01.50 and Generalized anxiety disorder F41.1 [facility] [id number] [place] [address] 57704- 2143 May, Generalized anxiety disorder F41.1 [facility] [id number] [place] [address] 72348- 4925 May, [facility] [id number] [place] [address] 40976- 8442 May, [facility] [id number] [place] [address] 56902- 6030 May, Coughing R05 [place] [id number] [place] [address] 11914- 3636 May, [facility] [id number] [place] [address] 58349- 6370 May, Bipolar affective disorder, currently depressed, moderate F31.32 ; Vascular dementia without behavioral disturbance F01.50 and Generalized anxiety disorder F41.1 [facility] [id number] [place] [address] 90951- 9950 Apr, Generalized anxiety disorder F41.1 [facility] [id number] [place] [address] 51755- 7632 Apr, [facility] [id number] [place] [address] 32841- 1766 Apr, Vascular dementia without behavioral disturbance F01.50 ; Generalized anxiety disorder F41.1 and Bipolar affective disorder, currently depressed, moderate F31.32 [place] [id number] [place] [address] 48304- 9901 Apr, Generalized anxiety disorder F41.1 [facility] [id number] [place] [address] 39815 -6474 Apr, Cough R05 and Acute exacerbation of chronic obstructive pulmonary disease (COPD) J44.1 [facility] [id number] [place] [address] 95305- 7294 Apr, [facility] [id number] [place] [address] 75827 -4350 Mar, Cough R05 and Cigarette nicotine dependence without complication F17.210 [facility] [id number] [place] [address] 49782- 6071 Mar, [facility] [id number] [place] [address] 53415- 4707 Feb, Generalized anxiety disorder F41.1 ; Major depressive disorder, recurrent episode, moderate F33.1 ; Vascular dementia without behavioral disturbance F01.50 and Unspecified psychosis F29 [facility] [id number] [place] [address] 19528- 3225 Feb, [place] [id number] [place] [address] 88387- 9271 Feb, [place] [id number] [place] [address] 78438- 6514 Feb, Generalized anxiety disorder F41.1 [facility] [place] [id number] [place] [address] 90516- 9340 Feb, Generalized anxiety disorder F41.1 [facility] [place] [id number] [place] [address] 92131- 9757 Feb, Dizziness R42 ; Chronic fatigue R53.82 ; Postconcussion syndrome F07.81 ; Fall, initial encounter W19.XXXA and Disorientation R41.0 [place] [address] 73918- 4732 Feb, Postconcussion syndrome F07.81 ; Injury of head, initial encounter S09.90XA ; Fall, initial encounter W19.XXXA ; Disorientation R41.0 and Acute cystitis with hematuria N30.01 [place] [address] 17316- 4706 Jan, Gastroesophageal reflux disease, esophagitis presence not specified K21.9 ; Post-menopausal Z78.0 and Migraine without aura and without status migrainosus, not intractable G43.009 [place] [address] 14063- 5532 Jan, [facility] [address] 30273- 2690 Jan, Generalized anxiety disorder F41.1 ; Major depressive disorder, recurrent episode, moderate F33.1 ; Vascular dementia without behavioral disturbance F01.50 and Unspecified psychosis F29 [place] [address] 91136- 1420 Jan, Pneumonia of left lower lobe due to infectious organism J18.1 [facility] [address] 09345- 8389 Jan, Migraine without aura and with status migrainosus, not intractable G43.001 [facility] [id number] [place] [address] 46963 -2316 Jan, Migraine without aura and without status migrainosus, not intractable G43.009 [facility] [address] 85482- 2454 Dec, Hematoma T14.8 [facility] [address] 55612- 4129 Dec, [facility] [address], [place] [address]303 Nov, Fatigue, unspecified type R53.83 [facility] [id number] [place] [address] 16081- 4520 Nov, Scabies B86 and Coronary artery disease involving picayune coronary artery of picayune heart with other form of angina pectoris I25.118 [facility] [id number] [place] [address] 14470- 6016 Nov, [facility] [id number] [place] [address] 88858- 4306 Nov, [facility] [id number] [place] [address] 25822- 6211 Oct, [facility] [place] [id number] [place] [address] 29295- 1797 Oct, Generalized anxiety disorder F41.1 and Major depressive disorder, recurrent episode, moderate F33.1 [facility] [id number] [place] [address] 84510- 1994 Oct, Cramp of both lower extremities R25.2 [facility] [place] [id number] [place] [address] 65048- 2416 Oct, Leg cramps R25.2 [facility] [place] [id number] [place] [address] 14625- 8724 Oct, Chronic pain syndrome G89.4 [facility] [id number] [place] [address] 95096- 9865 17 Oct, 2016 [facility] [place] [id number] [place] [address] 90805- 5602 Oct, [facility] [id number] [place] [address] 69304- 7476 Oct, Routine gynecological examination Z01.419 and Screening for breast cancer Z12.31 [place] [id number] [place] [address] 79581- 4438 Sep, Diarrhea R19.7 [facility] [id number] [place] [address] 37682- 1395 Sep, Back pain M54.9 [facility] [id number] [place] [address] 33122- 6465 Sep, [facility] [id number] [place] [address] 67289- 3311 Sep, [facility] [id number] [place] [address] 20594 -6769 August, Xeroderma Q80.9 [place] [id number] [place] [address] 05944- 6751 August, Dementia without behavioral disturbance, unspecified dementia type F03.90 [facility] [place] [id number] [place] [address] 18112- 3531 August, Chronic pain syndrome G89.4 [facility] [id number] [place] [address] 13710- 0101 August, [facility] [place] [id number] [place] [address] 30675- 7702 August, Hyperlipidemia E78.5 ; Other fatigue R53.83 and Other specified hypotension I95.89 [facility] [id number] [place] [address] 41265 -8447 August, Dysuria R30.0 ; Other fatigue R53.83 and Other specified hypotension I95.89 [facility] [id number] [place] [address] 76129- 0135 August, [facility] [id number] [place] [address] 36407- 5291 Jul, Pain in left knee M25.562 and Gastroenteritis K52.9 [facility] [id number] [place] [address] 29138- 7454 Jul, [facility] [id number] [place] [address] 00931- 8053 Jul, Diarrhea R19.7 [facility] [address] 89528 -8619 Jul, Spider bite, accidental or unintentional, initial encounter T63.301A [place] [address] 29707- 4057 Jul, Primary osteoarthritis of right knee M17.11 and Arthritis M19.90 [place] [address] 97105- 0801 Jul, Generalized anxiety disorder F41.1 and Major depressive disorder, recurrent episode, moderate F33.1 [facility] [address] 27933- 7527 Jul, Type 2 diabetes mellitus with diabetic polyneuropathy E11.42 and Temporal headache R51 [facility] [address] 00770- 2355 Jul, Back pain M54.9 [place] [address] 84371- 3966 Jul, [facility] [address] 63758- 3725 Jul, [facility] [id number] [place] [address] 43038- 9936 Jun, Nausea R11.0 [facility] [id number] [place] [address] 88550 -9048 Jun, Acute suppurative otitis media of both ears without spontaneous rupture of tympanic membranes, recurrence not specified H66.003 and COPD exacerbation J44.1 [facility] [place] [id number] [place] [address] 28757- 2770 Jun, Generalized anxiety disorder F41.1 [facility] [id number] [place] [address] 63713- 0983 Jun, [facility] [id number] [place] [address] 33548 -4568 Jun, [facility] [id number] [place] [address] 69773 -7183 Jun, Shortness of breath R06.02 and COPD exacerbation J44.1 [facility] [id number] [place] [address] 21209- 9538 Jun, Eczema, unspecified type L30.9 [facility] [id number] [place] [address] 94794- 8635 Jun, [facility] [address] 83625- 8503 May, [facility] [place] [id number] [place] [address] 51626- 9203 May, Muscle cramping R25.2 [facility] [place] [id number] [place] [address] 85345- 0264 May, [facility] [place] [id number] [place] [address] 82817- 0745 Apr, Diarrhea R19.7 [facility] [place] [id number] [place] [address] 43651- 4518 Apr, [facility] [place] [id number] [place] [address] 16271- 7043 Apr, Chronic pain syndrome G89.4 [facility] [place] [id number] [place] [address] 04872- 2777 Apr, Cramp of both lower extremities R25.2 and Vascular dementia without behavioral disturbance F01.50 [facility] [place] [id number] [place] [address] 44243- 2721 Apr, Type 2 diabetes mellitus with diabetic polyneuropathy E11.42 and Cigarette nicotine dependence without complication F17.210 [facility] [place] [id number] [place] [address] 61381- 2252 Mar, Generalized anxiety disorder F41.1 [facility] [id number] [place] [address] 23051- 2499 Feb, Generalized anxiety disorder F41.1 and Major depressive disorder, recurrent episode, moderate F33.1 [facility] [id number] [place] [address] [phone] Feb, [facility] [id number] [place] [phone] Feb, Dysuria R30.0 and Acute cystitis with hematuria N30.01 [facility] [id number] [place] [phone] Jan, [facility] [id number] [place] [address] [phone] Jan, [facility] [address] [phone] Jan, [facility] [address] [id number] [place] [address] 14487- 4200 Jan, [facility] [id number] [place] [address] 45819 -7615 Jan, Wasp sting, accidental or unintentional, initial encounter T63.461A [facility] [id number] [place] [address] 69081- 4559 Jan, Encounter for immunization Z23 [facility] [id number] [place] [address] 77427- 5475 Jan, [facility] [id number] [place] [address] 61477- 4816 Jan, [facility] [id number] [place] [address] 18571- 2464 Dec, Generalized anxiety disorder F41.1 and Major depressive disorder, recurrent episode, moderate F33.1 [facility] [id number] [place] [address] 77564- 6317 Dec, Routine gynecological examination Z01.419 ; Postmenopausal Z78.0 ; Screening breast examination Z12.39 ; Osteopenia M85.80 and Breast cancer screening Z12.39 [facility] [address], [place] [address] 9797 Dec, [facility] [address], [place] [address]- 5533 Dec, [facility] [id number] [place] [address] 36644- 8817 Dec, [facility] [id number] [place] [address] 58417- 9361 Dec, [facility] [id number] [place] [address] 20814- 0106 Dec, [facility] [id number] [place] [address] 03089- 5933 Dec, [facility] [id number] [address] 6928 Nov, [facility] [id number] [place] [address] 39291 -8352 Nov, Cough R05 ; Other viral agents as the cause of diseases classified elsewhere B97.89 and Acute upper respiratory infection, unspecified J06.9 [facility] [address], [place] [address]- 6366 Nov, [facility] [address], [place] [address]- 6733 Nov, [facility] [address], [place] [address]- 4781 Nov, [facility] [address], [place] [address]- 6330 Nov, [facility] [address], [place] [address]- 1656 Nov, [facility] [address], [place] [address]- 7054 Oct, [facility] [id number] [place] [address] 99693- 3001 Oct, [facility] [id number] [place] [address] 62633- 4054 14 Oct, 2015 [facility] [id number] [place] [address] 54597- 6859 Oct, Chronic pain syndrome G89.4 [facility] [id number] [place] [address] 66432- 0744 Sep, Generalized anxiety disorder F41.1 and Major depressive disorder, recurrent episode, moderate F33.1 [facility] [id number] [place] [address] 15256- 8483 Sep, [facility] [id number] [place] [address] 08865- 0240 Sep, [facility] [id number] [place] [address] 38827- 4982 Sep, Generalized anxiety disorder F41.1 [facility] [id number] [place] [address] 69519- 1701 Sep, Cramp of both lower extremities R25.2 and Cervicalgia M54.2 [facility] [id number] [place] [address] 55889- 5535 Sep, Generalized anxiety disorder F41.1 [facility] [id number] [place] [address] 79875- 7273 Sep, [facility] [id number] [place] [address] 80473 -5515 August, Rash R21 ; Itching L29.9 and Allergic response, subsequent encounter T78.40XD [facility] [id number] [place] [address] 03101- 1647 August, Primary insomnia F51.01 [facility] [address], [place] [address] -6548 August, Rash R21 ; Itching L29.9 and Allergic response, initial encounter T78.40XA [facility] [id number] [place] [address] 46112- 4865 August, [facility] [id number] [place] [address] 76587- 0390 August, Cramp of both lower extremities R25.2 [facility] [id number] [place] [address] 33507- 6846 August, Back pain M54.9 [facility] [id number] [place] [address] 40678- 4378 August, [facility] [id number] [place] [address] 96444- 6605 August, [facility] [id number] [place] [address] 00325 -7351 August, Cramp of both lower extremities R25.2 [facility] [id number] [place] [address] 57425- 8718 August, [facility] [id number] [place] [address] 81256- 0476 August, Syncope R55 ; Paroxysmal atrial fibrillation I48.0 ; Dementia without behavioral disturbance, unspecified dementia type F03.90 and Chronic pain syndrome G89.4 [facility] [id number] [place] [address] 67014- 0019 August, Type 2 diabetes mellitus with diabetic polyneuropathy E11.42 and Syncope R55 [facility] [id number] [place] [address] 27012- 6485 Jul, [facility] [id number] [place] [address] 86084- 5912 Jul, [facility] [id number] [place] [address] 20217- 7021 Jul, [facility] [address], [place] [address]- 1670 Jul, [facility] [address], [place] [address]- 7124 Jul, [facility] [address], [place] [address]- 1650 19 Jul, 2015 UTI (urinary tract infection) N39.0 [facility] [address], [place] [address]- 6710 18 Jul, 2015 [facility] [id number] [place] [address] 92866- 3088 18 Jul, 2015 Major depressive disorder, recurrent episode, moderate F33.1 and Generalized anxiety disorder F41.1 [facility] [address], [place] [address]- 8355 Jul, Generalized anxiety disorder F41.1 [facility] [address], [place] [address]- 8106 Jul, Diarrhea R19.7 [facility] [address], [place] [address]- 4042 Jul, [facility] [address], [place] [address]- 9107 Jun, [facility] [address], [place] [address]- 2214 Jun, Eczema L30.9 [facility] [address], [place] [address]- 6348 Jun, [facility] [address], [place] [address]- 9288 17 Jun, 2015 COPD (chronic obstructive pulmonary disease) J44.9 [facility] [address], [place] [address]- 1580 16 Jun, 2015 [facility] [address], [place] [address]- 3469 Jun, Major depressive disorder, recurrent episode, moderate F33.1 and Generalized anxiety disorder F41.1 [facility] [address], [place] [address]- 3123 May, [facility] [address], [place] [address]- 5899 May, UTI (urinary tract infection) N39.0 [facility] [id number] [place] [address] 43308- 8267 May, [facility] [id number] [place] [address] 86577- 5228 May, [facility] [id number] [place] [address] 33653- 3652 May, [facility] [id number] [place] [address] 72466- 4448 May, [facility] [id number] [place] [address] 65855- 3142 Apr, Major depressive disorder, recurrent episode, moderate F33.1 and Generalized anxiety disorder F41.1 [facility] [address], [place] [address]- 7299 Apr, COPD (chronic obstructive pulmonary disease) J44.9 [facility] [address], [place] [address]- 6762 Apr, [facility] [id number] [place] [address] 27976- 6438 Apr, Atrial flutter I48.92 [facility] [id number] [place] [address] 68212- 9111 Apr, [facility] [address], [place] [address]- 5414 Apr, [facility] [id number] [place] [address] 59570- 7157 Mar, [facility] [address], [place] [address]- 2174 Mar, [facility] [id number] [place] [address] 39898- 8506 Mar, [facility] [id number] [place] [address] 88014- 8241 Mar, Hyperlipidemia E78.5 ; Type 2 diabetes mellitus with diabetic polyneuropathy E11.42 ; Major depressive disorder, recurrent episode, moderate F33.1 and Chronic pain syndrome G89.4 [facility] [id number] [place] [address] 67162- 3554 Mar, [facility] [id number] [place] [address] 89618- 0517 Mar, [facility] [id number] [place] [address] 79574- 1804 Mar, [facility] [id number] [place] [address] 20018- 0614 Mar, [facility] [id number] [place] [address] 83849- 5540 Feb, COPD (chronic obstructive pulmonary disease) J44.9 and Back pain M54.9 [facility] [id number] [place] [address] 17636- 1685 Feb, [facility] [id number] [place] [address] 56057- 8698 Feb, [facility] [id number] [place] [address] 43452- 8913 Feb, [facility] [id number] [place] [address] 90378- 8291 Feb, [facility] [id number] [place] [address] 16831- 7454 Feb, [facility] [id number] [place] [address] 50114- 6330 Feb, [facility] [id number] [place] [address] 25332- 4625 Feb, [facility] [id number] [place] [address] 11681- 2859 Feb, [facility] [id number] [place] [address] 92490- 7314 Feb, Diabetes E11.9 ; Back pain M54.9 and COPD (chronic obstructive pulmonary disease) J44.9 [facility] [id number] [place] [address] 26597- 3365 Jan, [facility] [id number] [place] [address] 32244- 1743 Jan, Major depression, recurrent F33.9 and Generalized anxiety disorder F41.1 [facility] [id number] [place] [address] 16401- 8185 Jan, Chronic pain G89.29 [facility] [id number] [place] [address] 14036- 8793 Jan, [facility] [id number] [place] [address] 99612- 3205 Jan, [facility] [id number] [place] [address] 65305- 7680 Jan, [facility] [id number] [place] [address] 46076- 6592 Jan, [facility] [id number] [place] [address] 95038- 4366 Jan, Nicotine dependence F17.200 [facility] [id number] [place] [address] 42167- 9274 Jan, Nicotine dependence F17.200 and Back pain M54.9 [facility] [id number] [place] [address] 86615- 1827 Jan, [facility] [id number], [place] [address]- 0513 28 Dec, 2014 [facility] [id number] [place] [address] 42977- 3015 25 Dec, 2014 Anxiety, generalized 300.02 and Major depression, recurrent 296.30 [facility] [address], [place] [address]- 9488 24 Dec, 2014 [facility] [id number] [place] [address] 83150- 2541 21 Dec, 2014 [facility] [address], [place] [address]- 1902 17 Dec, 2014 [facility] [id number] [place] [address] 60333- 9066 15 Dec, 2014 [facility] [id number] [place] [address] 94855- 8043 14 Dec, 2014 [facility] [id number] [place] [address] 53847- 0620 11 Dec, 2014 [facility] [address], [place] [address]- 5398 10 Dec, 2014 [facility] [id number] [place] [address] 19867- 9839 08 Dec, 2014 Skin tear 879.8 [facility] [address], [place] [address]- 8246 08 Dec, 2014 Routine gynecological examination V72.31 ; Breast cancer screening V76.10 and Family history of breast cancer in first degree relative V16.3 [facility] [address], [place] [address]- 9584 03 Dec, 2014 [facility] [id number] [place] [address] 99666- 9554 02 Dec, 2014 [facility] [address], [place] [address]- 7060 Nov, [facility] [id number] [place] [address] 87658- 5932 Nov, [facility] [id number] [place] [address] 00539- 1261 Nov, Poor balance 781.99 and Vascular dementia, uncomplicated 290.40 [facility] [id number] [place] [address] 95865- 5803 Nov, [facility] [id number] [place] [address] 68371- 5448 Nov, Major depression, recurrent 296.30 and Anxiety, generalized 300.02 [facility] [id number] [place] [address] 47953- 8064 Nov, [facility] [id number] [place] [address] 99263- 7180 Nov, [facility] [id number] [place] [address] 26130- 6637 Nov, [facility] [id number] [place] [address] 28506- 9124 Nov, [facility] [id number] [place] [address] 40212- 2464 Nov, Vascular dementia, uncomplicated 290.40 and Lumbago 724.2 [facility] [id number] [place] [address] 92005- 7621 Nov, [facility] [id number] [place] [address] 02004- 4580 Nov, [facility] [id number] [place] [address] 08316- 1732 Nov, [facility] [id number] [place] [address] 06358- 9966 Oct, [facility] [id number] [place] [address] 15692- 3300 Oct, [facility] [id number] [place] [address] 50927- 9520 Oct, [facility] [address], [place] [address]- 8159 Oct, COPD (chronic obstructive pulmonary disease) 496 and Hyperlipidemia 272.4 [facility] [id number] [place] [address] 48018- 0825 Oct, Major depression, recurrent 296.30 and Anxiety, generalized 300.02 [facility] [id number] [place] [address] 49366- 4949 Oct, [facility] [id number] [place] [address] 97759- 8225 Oct, [facility] [id number] [place] [address] 70519- 1569 Oct, [facility] [id number] [place] [address] 12129- 9419 Sep, Lumbago 724.2 and Anxiety state, unspecified 300.00 [facility] [id number] [place] [address] 07268- 9791 Sep, [facility] [id number] [place] [address] 63142- 9114 Sep, [facility] [id number] [place] [address] 36858- 9250 August, [facility] [id number] [place] [address] 71316- 7720 August, Major depression, recurrent 296.30 ; Anxiety, generalized 300.02 and No condition on Marvin II V71.09 [facility] [id number] [place] [address] 54123- 6818 August, [facility] [id number] [place] [address] 53135- 8006 August, [facility] [id number] [place] [address] 52008- 7567 Jul, [facility] [place] [facility] [address] [id number] [place] [address]- 3416 14 Jul, 2014 [facility] [place] [facility] [address] [id number] [place] [address]- 8536 13 Jul, 2014 [facility] [place] [facility] [address] [id number] [place] [address]- 3356 30 Jun, 2014 [facility] [place] [facility] [address] [id number] [place] [address]- 3206 30 Jun, 2014 [facility] [place] [facility] [address] [id number] [place] [address]- 1636 27 Jun, 2014 [facility] [place] [facility] [address] [id number] [place] [address]- 7596 27 Jun, 2014 [facility] [place] [facility] [address] [id number] [place] [address]- 7866 26 Jun, 2014 [facility] [place] [facility] [address] [id number] [place] [address]- 0411 23 Jun, 2014 [facility] [place] [facility] [address] [id number] [place] [address]- 5307 23 Jun, 2014 [facility] [place] [facility] [address] [id number] [place] [address]- 7355 17 Jun, 2014 [facility] [place] [facility] [address] [id number] [place] [address]- 2112 13 Jun, 2014 [facility] [place] [facility] [address] [id number] [place] [address]- 1333 13 Jun, 2014 [facility] [place] [facility] [address] [id number] [place] [address]- 3971 10 Jun, 2014 [facility] [place] [facility] [address] [id number] [place] [address]- 3316 10 Jun, 2014 [facility] [place] [facility] [address] [id number] [place] [address]- 2546 07 Jun, 2014 [facility] [place] [facility] [address] [id number] [place] [address]- 5631 Jun, 2014 [facility] [place] [facility] [address] [id number] [place] [address] Jun, 2014 [facility] [place] [facility] [address] [id number] [place] [address] Jun, [facility] [place] [facility] [address] [facility] [id number] [place] [address] May, 2014 [facility] [place] [facility] [address] [id number] [place] [address] May, 2014 [facility] [place] [facility] [address] [id number] [place] [address] May, 2014 [facility] [place] [facility] [address] [facility] [id number] [place] [address] May, 2014 [facility] [place] [facility] [address] [facility] [id number] [place] [address] May, 2014 [facility] [place] [facility] [address] [facility] [id number] [place] [address] May, 2014 [facility] [place] [facility] [address] [facility] [id number] [place] [address] May, 2014 [facility] [place] [facility] [address] [facility] [id number] [place] [address] May, 2014 [facility] [place] [facility] [address] [facility] [id number] [place] [address] May, 2014 [facility] [place] [facility] [address] [facility] [id number] [place] [address] May, 2014 [facility] [place] [facility] [address] [id number] [place] [address] May, 2014 [facility] [place] [facility] [address] [facility] [id number] [place] [address] May, 2014 [facility] [place] [facility] [address] [facility] [id number] [place] [address] 04 May, 2014 [facility] [place] [facility] [address] [id number] [place] [address] May, [facility] [place] [facility] [address] [id number] [place] [address] Apr, [facility] [place] [facility] [address] [id number] [place] [address] Apr, [facility] [place] [facility] [address] [id number] [place] [address] Apr, [facility] [place] [facility] [address] [id number] [place] [address] Apr, [facility] [place] [facility] [address] [id number] [place] [address] Apr, [facility] [place] [facility] [address] [id number] [place] [address] Apr, [facility] [place] [facility] [address] [id number] [place] [address] Apr, [facility] [place] [facility] [address] [id number] [place] [address] Apr, [facility] [place] [facility] [address] [id number] [place] [address] Apr, [facility] [place] [facility] [address] [id number] [place] [address] Apr, [facility] [place] [facility] [address] [id number], [place] [address] Apr, [facility] [place] [facility] [address] [id number] [place] [address] Apr, [facility] [place] [facility] [address] [id number] [place] [address] Mar, [facility] [place] [facility] [address] [id number] [place] [address] Mar, [facility] [place] [facility] [address] [id number] [place] [address] 30 Mar, 2014 [facility] [place] [facility] [address] [id number] [place] [address] 30 Mar, 2014 [facility] [place] [facility] [address] [id number] [place] [address] Mar, [facility] [place] [facility] [address] [id number] [place] [address] Mar, [facility] [place] [facility] [address] [id number] [place] [address] Mar, [facility] [place] [facility] [address] [id number] [place] [address] Mar, [facility] [place] [facility] [address] [address] [id number] [place] [address] 15 Mar, 2014 [facility] [place] [facility] [address] [id number] [place] [address] 15 Mar, 2014 [facility] [place] [facility] [address] [id number] [place] [address] 0735 15 Mar, 2014 [facility] [place] [facility] [address] [id number] [place] [address] 0355 15 Mar, 2014 [facility] [place] [facility] [address] [id number] [place] [address] 9616 15 Mar, 2014 [facility] [place] [facility] [address] [id number] [place] [address] 8707 15 Mar, 2014 [facility] [place] [facility] [address] [id number] [place] [address] 9[address] 08 Mar, 2014 [facility] [place] [facility] [address] [id number] [place] [address] 8495 Mar, [facility] [place] [facility] [address] [id number] [place] [address] 6415 Mar, [facility] [place] [facility] [address] [id number] [place] [address] 3847 Mar, [facility] [place] [facility] [address] [id number] [place] [address] 1879 Mar, [facility] [place] [facility] [address] [id number] [place] [address]- 2596 Mar, [facility] [place] [facility] [address] [id number] [place] [address]- 9862 Feb, [facility] [place] [facility] [address] [id number] [place] [address]- 4353 Feb, [facility] [place] [facility] [address] [id number] [place] [address]- 0471 Feb, [facility] [place] [facility] [address] [id number] [place] [address]- 3024 Feb, [facility] [place] [facility] [address] [id number] [place] [address]- 5937 Feb, [facility] [place] [facility] [address] [id number] [place] [address]- 7430 Feb, [facility] [place] [facility] [address] [id number] [place] [address]- 7677 Feb, [facility] [place] [facility] [address] [id number] [place] [address]- 3359 Feb, [facility] [place] [facility] [address] [id number] [place] [address]- 8426 Feb, [facility] [place] [facility] [address] [id number] [place] [address]- 2306 Feb, [facility] [place] [facility] [address] [id number] [place] [address]- 3974 Feb, [facility] [place] [facility] [address] [id number] [place] [address]- 7122 Feb, [facility] [place] [facility] [address] [id number] [place] [address]- 3177 Feb, [facility] [place] [facility] [address] [id number] [place] [address]- 4552 Feb, [facility] [place] [facility] [address] [id number] [place] [address]- 5005 Feb, [facility] [place] [facility] [address] [id number] [place] [address]- 0210 Feb, [facility] [place] [facility] [address] [id number] [place] [address]- 0519 Feb, [facility] [place] [facility] [address] [id number] [place] [address]- 7494 Jan, [facility] [place] [facility] [address] [id number] [place] [address] Jan, [facility] [place] [facility] [address] [id number] [place] [address]- 5632 Jan, [facility] [place] [facility] [address] [id number] [place] [address]- 3096 Jan, [facility] [place] [facility] [address] [id number] [place] [address]- 6895 Jan, [facility] [place] [facility] [address] [id number] [place] [address]- 9922 Jan, [facility] [place] [facility] [address] [id number] [place] [address]- 7609 Jan, [facility] [place] [facility] [address] [id number] [place] [address]- 5951 Jan, [facility] [place] [facility] [address] [id number], [place] [address]- 0041 Jan, [facility] [place] [facility] [address] [id number] [place] [address] Jan, [facility] [place] [facility] [address] [id number] [place] [address]- 7824 Jan, [facility] [place] [facility] [address] [id number] [place] [address]- 4114 Dec, [facility] [place] [facility] [address] [id number] [place] [address]- 7775 Dec, [facility] [place] [facility] [address] [id number] [place] [address]- 3583 Nov, [facility] [place] [facility] [address] [id number] [place] [address]- 5695 Nov, [facility] [place] [facility] [address] [id number] [place] [address]- 2785 Nov, [facility] [place] [facility] [address] [id number] [place] [address]- 8326 Nov, [facility] [place] [facility] [address] [id number] [place] [address]- 7056 Nov, [facility] [place] [facility] [address] [id number] [place] [address]- 7607 Nov, [facility] [place] [facility] [address] [id number] [place] [address]- 4557 Nov, [facility] [place] [facility] [address] [id number] [place] [address]- 1709 Oct, [facility] [place] [facility] [address] [id number] [place] [address]- 9735 Oct, [facility] [place] [facility] [address] [id number] [place] [address]- 0054 Oct, [facility] [place] [facility] [address] [id number] [place] [address]- 8630 Oct, [facility] [place] [facility] [address] [id number] [place] [address]- 2130 Sep, [facility] [place] [facility] [address] [id number] [place] [address]- 8408 Sep, [facility] [place] [facility] [address] [id number] [place] [address]- 4095 Sep, [facility] [place] [facility] [address] [id number] [place] [address]- 4211 Sep, [facility] [place] [facility] [address] [id number] [place] [address]- 2589 Sep, [facility] [place] [facility] [address] [id number] [place] [address]- 1011 Sep, [facility] [place] [facility] [address] [id number] [place] [address]- 7509 Sep, [facility] [place] [facility] [address] [id number] [place] [address]- 5851 Sep, [facility] [place] [facility] [address] [id number] [place] [address]- 6008 Sep, [facility] [place] [facility] [address] [id number] [place] [address]- 1427 Sep, [facility] [place] [facility] [address] [id number] [place] [address]- 2378 Sep, [facility] [place] [facility] [address] [id number] [place] [address]- 3316 Sep, [facility] [place] [facility] [address] [id number] [place] [address]- 2104 Sep, [facility] [place] [facility] [address] [id number] [place] [address]- 7208 Sep, [facility] [place] [facility] [address] [id number] [place] [address]- 5226 August, [facility] [place] [facility] [address] [id number] [place] [address]- 8746 August, [facility] [place] [facility] [address] [id number] [place] [address]- 3442 August, [facility] [place] [facility] [address] [id number] [place] [address]- 2412 August, [facility] [place] [facility] [address] [id number] [place] [address]- 1021 August, [facility] [place] [facility] [address] [id number] [place] [address]- 7440 August, [facility] [address] [id number] [place] [address]- 0142 August, [facility] [place] [facility] [address] [id number] [place] [address]- 9796 August, [facility] [place] [facility] [address] [id number] [place] [address]- 0460 August, [facility] [place] [facility] [address] [id number] [place] [address]- 1888 August, [facility] [place] [facility] [address] [id number] [place] [address]- 2186 August, [facility] [place] [facility] [address] [id number] [place] [address]- 9348 August, [facility] [place] [facility] [address] [id number] [place] [address]- 4358 August, [facility] [place] [facility] [address] [id number] [place] [address]- 4027 August, [facility] [place] [facility] [address] [id number] [place] [address]- 3672 August, [facility] [place] [facility] [address] [id number] [place] [address]- 1359 August, [facility] [place] [facility] [address] [id number] [place] [address]- 7755 August, [facility] [place] [facility] [address] [id number] [place] [address]- 7347 August, [facility] [place] [facility] [address] [id number] [place] [address]- 0550 August, [facility] [place] [facility] [address] [id number] [place] [address]- 0806 Jul, [facility] [place] [facility] [address] [id number] [place] [address]- 9051 Jul, [facility] [place] [facility] [address] [id number] [place] [address]- 3715 08 Jul, 2013 [facility] [place] [facility] [address] [id number] [place] [address] 08 Jul, 2013 [facility] [place] [facility] [address] [id number] [place] [address]- 8369 Jun, [facility] [place] [facility] [address] [id number] [place] [address]- 7200 27 Jun, 2013 [facility] [place] [facility] [address] [id number] [place] [address]- 7195 24 Jun, 2013 [facility] [place] [facility] [address] [id number] [place] [address]- 7668 24 Jun, 2013 [facility] [place] [facility] [address] [id number] [place] [address]- 7703 Jun, [facility] [place] [facility] [address] [id number] [place] [address]- 7749 17 Jun, 2013 [facility] [place] [facility] [address] [id number] [place] [address]- 6288 Jun, [facility] [place] [facility] [address] [id number] [place] [address]- 5181 Jun, [facility] [place] [facility] [address] [facility] [id number] [place] [address]- 1337 Jun, [facility] [place] [facility] [address] [id number] [place] [address]- 6805 Jun, [facility] [place] [facility] [address] [id number] [place] [address]- 1326 May, [facility] [place] [facility] [address] [id number] [place] [address]- 9836 May, [facility] [place] [facility] [address] [id number] [place] [address]- 0118 May, [facility] [place] [facility] [address] [id number] [place] [address]- 9415 May, [facility] [place] [facility] [address] [id number] [place] [address]- 6069 May, [facility] [place] [facility] [address] [id number] [place] [address]- 0944 May, [facility] [place] [facility] [address] [facility] [id number] [place] [address]- 3148 20 May, 2013 [facility] [place] [facility] [address] [id number] [place] [address]- 8398 May, [facility] [place] [facility] [address] [id number] [place] [address]- 9282 May, [facility] [place] [facility] [address] [facility] [id number] [place] [address]- 3597 18 May, 2013 [facility] [place] [facility] [address] [facility] [id number] [place] [address]- 9080 May, [facility] [place] [facility] [address] [id number] [place] [address]- 2971 17 May, 2013 [facility] [place] [facility] [address] [id number] [place] [address]- 9115 May, [facility] [place] [facility] [address] [facility] [id number] [place] [address]- 8765 May, [facility] [place] [facility] [address] [facility] [id number] [place] [address]- 5792 May, [facility] [place] [facility] [address] [facility] [id number] [place] [address]- 0497 May, [facility] [place] [facility] [address] [facility] [id number] [place] [address]- 3548 07 May, 2013 [facility] [place] [facility] [address] [facility] [id number] [place] [address]- 7138 Apr, [facility] [place] [facility] [address] [facility] [id number] [place] [address]- 3916 15 Apr, 2013 [facility] [place] [facility] [address] [id number] [place] [address]- 3987 Apr, [facility] [address] [id number] [place] [address]- 8694 Apr, [facility] [place] [facility] [address] [id number] [place] [address]- 6162 Apr, [facility] [place] [facility] [address] [id number] [place] [address]- 5076 Apr, [facility] [place] [facility] [address] [id number] [place] [address]- 8922 Apr, [facility] [place] [facility] [address] [id number] [place] [address]- 9295 Mar, [facility] [place] [facility] [address] [id number] [place] [address]- 8420 Mar, [facility] [place] [facility] [address] [id number] [place] [address]- 5285 Mar, [facility] [place] [facility] [address] [id number] [place] [address]- 8632 Mar, [facility] [place] [facility] [address] [id number] [place] [address]- 1238 Mar, [facility] [place] [facility] [address] [id number] [place] [address]- 1346 Mar, [facility] [place] [facility] [address] [id number] [place] [address]- 5398 Mar, [facility] [place] [facility] [address] [id number] [place] [address]- 1451 Mar, [facility] [place] [facility] [address] [id number] [place] [address]- 2512 Mar, [facility] [place] [facility] [address] [id number] [place] [address]- 1611 Mar, [facility] [place] [facility] [address] [id number] [place] [address]- 2887 04 Mar, 2013 [facility] [place] [facility] [address] [id number] [place] [address]- 0578 Feb, [facility] [place] [facility] [address] [id number] [place] [address]- 6198 22 Feb, 2013 [facility] [place] [facility] [address] [id number] [place] [address]- 0959 Feb, [facility] [place] [facility] [address] [id number], [place] [address]- 4771 20 Feb, 2013 [facility] [place] [facility] [address] [id number] [place] [address]- 9930 Feb, [facility] [place] [facility] [address] [id number], [place] [address]- 9569 19 Feb, 2013 [facility] [place] [facility] [address] [id number], [place] [address]- 7810 15 Feb, 2013 [facility] [place] [facility] [address] [id number], [place] [address]- 0173 14 Feb, 2013 [facility] [place] [facility] [address] [id number], [place] [address]- 2253 14 Feb, 2013 [facility] [place] [facility] [address] [id number], [place] [address]- 2058 13 Feb, 2013 [facility] [place] [facility] [address] [id number], [place] [address]- 2852 13 Feb, 2013 [facility] [place] [facility] [address] [id number], [place] [address]- 0671 12 Feb, 2013 [facility] [place] [facility] [address] [id number], [place] [address]- 9698 12 Feb, 2013 [facility] [place] [facility] [address] [id number], [place] [address]- 9108 11 Feb, 2013 [facility] [place] [facility] [address] [id number], [place] [address]- 2046 05 Feb, 2013 [facility] [place] [facility] [address] [id number] [place] [address]- 2279 05 Feb, 2013 [facility] [address] [id number] [place] [address]- 6579 28 Jan, 2013 [facility] [place] [facility] [address] [id number] [place] [address]- 8670 Jan, [facility] [place] [facility] [address] [id number] [place] [address]- 3179 Jan, [facility] [place] [facility] [address] [id number] [place] [address]- 4253 Jan, [facility] [place] [facility] [address] [id number] [place] [address]- 9613 Jan, [facility] [place] [facility] [address] [id number] [place] [address]- 6992 Jan, [facility] [place] [facility] [address] [id number] [place] [address]- 0190 Jan, [facility] [address] [id number] [place] [address]- 9847 10 Jan, 2013 [facility] [place] [facility] [address] [id number] [place] [address]- 4054 10 Jan, 2013 [facility] [place] [facility] [address] [id number] [place] [address]- 0782 27 Dec, 2012 [facility] [place] [facility] [address] [id number] [place] [address]- 2543 20 Sep, 2012 [facility] [place] [facility] [address] [id number] [place] [address]- 2541 19 Sep, 2012 [facility] [place] [facility] [address] [id number] [place] [address]- 2548 10 Sep, 2012 [facility] [place] [facility] [address] [id number] [place] [address]- 2548 04 Sep, 2012 [facility] [place] [facility] [address] [id number] [place] [address]- 2540 Dec, [facility] [place] [facility] [address] [id number] [place] [address]- 5071 Nov, [facility] [place] [facility] [address] [id number] [place] [address]- 9953 Nov, [facility] [place] [facility] [address] [id number] [place] [address]- 3758 Nov, [facility] [place] [facility] [address] [id number] [place] [address]- 7400 Nov, [facility] [place] [facility] [address] [id number] [place] [address]- 4302 Nov, [facility] [place] [facility] [address] [id number] [place] [address]- 3185 Nov, [facility] [place] [facility] [address] [id number] [place] [address]- 1561 Nov, [facility] [place] [facility] [address] [id number] [place] [address]- 1954 Nov, [facility] [place] [facility] [address] [id number] [place] [address]- 9930 Nov, [facility] [place] [facility] [address] [id number] [place] [address]- 8658 Nov, [facility] [place] [facility] [address] [id number] [place] [address]- 2734 Oct, [facility] [place] [facility] [address] [id number] [place] [address]- 0810 Oct, [facility] [place] [facility] [address] [id number] [place] [address]- 1060 Oct, [facility] [place] [facility] [address] [id number] [place] [address]- 1481 Oct, [facility] [place] [facility] [address] [id number] [place]43 Oct, [facility] [place] [facility] [address] [id number] [place] [address]- 0703 Oct, [facility] [address] [id number] [place] [address]- 6418 Oct, [facility] [place] [facility] [address] [id number] [place] [address]- 2246 Oct, [facility] [place] [facility] [address] [id number] [place] [address]- 3906 Sep, [facility] [place] [facility] [address] [id number] [place] [address]- 7686 Sep, [facility] [place] [facility] [address] [id number] [place] [address]- 0162 Sep, [facility] [place] [facility] [address] [id number] [place] [address]- 9618 Sep, [facility] [address] [id number] [place] [address]- 7759 Sep, [facility] [place] [facility] [address] [id number] [place] [address]- 1639 Sep, [facility] [place] [facility] [address] [id number] [place] [address]- 7468 Sep, [facility] [place] [facility] [address] [id number] [place] [address]- 7349 Sep, [facility] [place] [facility] [address] [id number] [place] [address]- 4505 August, [facility] [place] [facility] [address] [id number] [place] [address]- 6471 August, [facility] [place] [facility] [address] [id number] [place] [address] August, [facility] [place] [facility] [address] [id number] [place] [address] August, [facility] [place] [facility] [address] [id number] [place] [address] August, [facility] [place] [facility] [address] [id number] [place] [address] 26 Jul, 2012 [facility] [address] [id number] [place] [address] Jul, [facility] [address] [id number] [place] [address] Jul, [facility] [address] [id number] [place] [address] 04 Jul, 2012 [facility] [address] [id number] [place] [address] Jul, [facility] [address] [id number] [place] [address] Jun, [facility] [address] [id number] [place] [address] 18 Jun, 2012 [facility] [address] [id number] [place] [address] 15 Jun, 2012 [facility] [address] [id number] [place] [address] 14 Jun, 2012 [facility] [address] [id number] [place] [address] Jun, [facility] [address] [id number] [place] [address] 1973 Jun, [facility] [address] [id number] [place] [address] Jun, [facility] [address] [id number] [place] [address] 8545 Jun, [facility] [place] [facility] [address] [id number] [place] [address] Jun, [facility] [place] [facility] [address] [id number] [place] [address] May, [facility] [address] [id number] [place] [address] May, [facility] [address] [id number] [place] [address]8 May, [facility] [address] [id number] [place] [address] May, [facility] [address] [facility] [id number] [place] [address] Apr, [facility] [address] [id number] [place] [address] 8501 Apr, [facility] [address] [id number] [place] [address] Apr, [facility] [address] [id number] [place] [address] Apr, [facility] [address] [id number] [place] [address] Apr, [facility] [address] [id number] [place] [address] 8780 Apr, [facility] [address] [id number], [place] [address] Apr, [facility] [address] [facility] [id number], [place] [address] Mar, [facility] [address] [place] [id number] Mar, [facility] [address] [id number], [place] [address] Mar, [facility] [address] [id number], [place] [address] Mar, [facility] [address] [id number] [place] [address]99 Mar, [facility] [address] [id number], [place] [address] Mar, [facility] [address] [id number], [place] [address] Mar, [facility] [place] [facility] [address] [id number] [place] [address] 1941 Mar, [facility] [place] [facility] [address] [id number] [place] [address] 267[address] Mar, [facility] [place] [facility] [address] [id number] [place] [address]36 Mar, [facility] [place] [facility] [address] [id number] [place] [address] 2007 Mar, [facility] [place] [facility] [address] [id number] [place] [address] Mar, [facility] [place] [facility] [address] [id number] [place] [address]- [address]283 Mar, [facility] [place] [facility] [address] [id number] [place] [address] Mar, [facility] [place] [facility] [address] [id number] [place] [address]757 Mar, [facility] [place] [facility] [address] [id number] [place] [address]- 0727 Mar, [facility] [place] [facility] [address] [facility] [id number] [place] [address] Mar, [facility] [place] [facility] [address] [id number] [place] [address]23 Feb, [facility] [place] [facility] [address] [id number] [place] [address] 9197 Feb, [facility] [place] [facility] [address] [id number] [place] [address] 2428 Feb, [facility] [place] [facility] [address] [id number] [place] [address]104 Feb, [facility] [place] [facility] [address] [facility] [id number] [place] [address]- 2718 Feb, [facility] [place] [facility] [address] [id number] [place] [address]- 1098 Feb, [facility] [place] [facility] [address] [id number] [place] [address] 7049 Feb, [facility] [place] [facility] [address] [id number] [place] [address]- 7813 Feb, [facility] [place] [facility] [address] [id number] [place] [address]- [address]446 Feb, [facility] [place] [facility] [address] [id number] [place] [address]- 4261 Feb, [facility] [place] [facility] [address] [id number] [place] [address] 2456 Feb, [facility] [place] [facility] [address] [id number] [place] [address]- 2927 Feb, [facility] [place] [facility] [address] [id number] [place] [address] 290[address] Feb, [facility] [place] [facility] [address] [id number] [place] [address] 1734 Feb, [facility] [place] [facility] [address] [id number] [place] [address] 3341 Feb, [facility] [place] [facility] [address] [facility] [id number] [place] [address]- 3851 Feb, [facility] [place] [facility] [address] [id number] [place] [address] 4097 Jan, [facility] [place] [facility] [address] [id number] [place] [address]- 8991 Jan, [facility] [place] [facility] [address] [id number] [place] [address]- 8831 Jan, [facility] [place] [facility] [address] [id number] [place] [address]- 9621 Jan, [facility] [place] [facility] [address] [id number] [place] [address]- [address]92 Jan, [facility] [place] [facility] [address] [id number] [place] [address]- 4525 Jan, [facility] [place] [facility] [address] [id number] [place] [address]- 6297 Jan, [facility] [place] [facility] [address] [id number] [place] [address]- 7062 Jan, [facility] [place] [facility] [address] [id number] [place] [address]- 1652 Jan, [facility] [place] [facility] [address] [id number] [place] [address]- 6807 Jan, [facility] [place] [facility] [address] [id number] [place] [address]- 0074 Jan, [facility] [place] [facility] [address] [id number] [place] [address]- 0731 Jan, [facility] [facility] [address] [id number], [place] [address] Jan, [facility] [place] [facility] [address] [id number] [place] [address] Jan, [facility] [place] [facility] [address] [id number], [place] [address] Jan, [facility] [place] [facility] [address] [id number], [place] [address] Jan, [facility] [facility] [address] [id number], [place] [address] Jan, [facility] [place] [facility] [address] [id number] [place] [address] Dec, [facility] [place] [facility] [address] [id number], [place] [address] 20 Dec, 2011 [facility] [address] [id number], [place] [address] 18 Dec, 2011 [facility] [place] [address] [id number] [place] [address] 18 Dec, 2011 [facility] [place] [facility] [address] [id number] [place] [address] 2546 10 Dec, 2011 [facility] [place] [facility] [address] [id number] [place] [address] 2546 10 Dec, 2011 [facility] [place] [facility] [address] [id number] [place] [address] 2546 10 Dec, 2011 [facility] [place] [facility] [address] [id number] [place] [address] 2546 07 Dec, 2011 [facility] [place] [facility] [address] [id number] [place] [address] 30 Nov, 2011 [facility] [place] [facility] [address] [id number] [place] [address] 7526 Nov, [facility] [place] [facility] [address] [id number] [place] [address]- [address]234 Nov, [facility] [place] [facility] [address] [id number] [place] [address] 254 Nov, [facility] [place] [facility] [address] [id number] [place] [address] 8204 Nov, [facility] [place] [facility] [address] [id number] [place] [address] 295[address] Nov, [facility] [place] [facility] [address] [id number] [place] [address]66 Oct, [facility] [place] [facility] [address] [id number] [place] [address] 254 Oct, [facility] [place] [facility] [address] [id number] [place] [address] 9281 Oct, [facility] [place] [facility] [address] [id number] [place] [address]- 2546 Oct, [facility] [place] [facility] [address] [id number] [place] [address]- [address]1 Oct, [facility] [place] [facility] [address] [id number] [place] [address]- 6913 Oct, [facility] [place] [facility] [address] [id number] [place] [address]- 8590 Oct, [facility] [place] [facility] [address] [id number] [place] [address]- 5399 Sep, [facility] [place] [facility] [address] [id number] [place] [address]508 Sep, [facility] [place] [facility] [address] [id number] [place] [address] 8[address] Sep, [facility] [place] [facility] [address] [id number] [place] [address] 479[address] Sep, [facility] [place] [facility] [address] [id number] [place] [address]- 2471 Sep, [facility] [place] [facility] [address] [id number] [place] [address]- 8[address] 15 Sep, 2011 [facility] [place] [facility] [address] [id number] [place] [address]- 9886 14 Sep, 2011 [facility] [place] [facility] [address] [id number] [place] [address]- 7400 Sep, [facility] [place] [facility] [address] [id number] [place] [address]- 6567 05 Sep, 2011 [facility] [place] [facility] [address] [id number] [place] [address] 3619 Sep, [facility] [place] [facility] [address] [id number] [place] [address]- 9625 August, [facility] [place] [facility] [address] [id number] [place] [address]- 4229 August, [facility] [place] [facility] [address] [id number] [place] [address]- 8653 14 Aug, 2011 [facility] [place] [facility] [address] [id number] [place] [address]- 5526 August, [facility] [address] [id number] [place] [address] August, [facility] [address] [id number] [place] [address] 3602 Jul, [facility] [address] [id number] [place] [address] 4272 Jul, [facility] [address] [id number] [place] [address] Jul, [facility] [address] [id number] [place] [address] 3858 Jul, [facility] [address] [id number] [place] [address]- 4849 Jul, [facility] [address] [id number] [place] [address] 3143 Jul, [facility] [address] [id number] [place] [address]- [address]38 Jul, [facility] [address] [id number] [place] [address] 8047 Jun, [facility] [address] [id number] [place] [address]- 6097 Jun, [facility] [address] [id number] [place] [address]- 4186 Jun, [facility] [address] [id number] [place] [address]- 5683 Jun, [facility] [address] [id number] [place] [address]- 2767 Jun, [facility] [address] [id number] [place] [address]- 7748 May, [facility] [address] [id number] [place] [address]- 2896 May, [facility] [address] [id number] [place] [address]- 6336 May, [facility] [address] [id number] [place] [address]- 4806 May, [facility] [address] [id number] [place] [address]- 9386 May, [facility] [address] [id number] [place] [address]- 8776 May, [facility] [address] [id number] [place] [address]- 9369 Apr, [facility] [address] [id number] [place] [address]- 0523 Mar, [facility] [address] [id number] [place] [address]- 2858 Feb, [facility] [address] [id number] [place] [address]- 0971 Feb, [facility] [address] [id number] [place] [address]- 7482 Feb, [facility] [address] [id number] [place] [address]- 1490 Feb, [facility] [address] [facility] [id number] [place] [address]- 2154 Jan, [facility] [address] [id number] [place] [address]- 1067 Jan, [facility] [address] [id number] [place] [address]- 3877 Jan, [facility] [address] [id number] [place] [address]- 0290 24 Jan, 2011 [facility] [address] [id number] [place] [address]- 2543 14 Jan, 2011 [facility] [address] [id number] [place] [address]- 7193 Dec, [facility] [address] [id number] [place] [address]- 6087 Oct, [facility] [address] [id number] [place] [address]- 3966 August, [facility] [address] [id number] [place] [address] 29 Mar, 2010 [facility] [address] [id number] [place] [address]- 7027 27 Mar, 2010 [facility] [address] [id number] [place] [address]- 0157 16 Mar, 2010 [facility] [address] [id number] [place] [address]- 7044 15 Mar, 2010 [facility] [address] [id number] [place] [address]- 1781 15 Mar, 2010 [facility] [address] [id number], [place] [address]- 1646 08 Mar, 2010 [facility] [address] [id number], [place] [address]- 0754 Mar, [facility] [address] [id number], [place] [address]- [address] 24 Feb, 2010 [facility] [address] [id number], [place] [address]- 1135 24 Feb, 2010 [facility] [address] [id number], [place] [address]- 1757 15 Feb, 2010 [facility] [address] [id number], [place] [address]- 4188 Jan, [facility] [address] [id number], [place] [address]- 5623 18 Jan, 2010 [facility] [address] [id number], [place] [address]- 6115 18 Jan, 2010 [facility] [address] [id number] [place] [address]- 4121 Nov, [facility] [address] [id number] [place] [address]- 4453 14 Sep, 2009 [facility] [address] [id number] [place] [address]- 4145 August, [facility] [address] [id number] [place] [address]- 1367 30 Mar, 2009 [facility] [address] [id number] [place] [address] 2548 Mar, [facility] [address] [id number] [place] [address]- 5173 17 Feb, 2009 [facility] [address] [id number] [place] [address]- 7820 Feb, [facility] [address] [facility] [id number] [place] [address]- 1748 Feb, [facility] [address] [id number] [place] [address]- 5970 Feb, [facility] [address] [facility] [id number] [place] [address]- 3675 06 Feb, 2009 [facility] [address] [facility] [id number] [place] [address]- 7479 27 Jan, 2009 [facility] [address] [id number] [place] [address]- 0658 Jan, [facility] [address] [id number], [place] [address]- 5829 Jan, [facility] [address] [id number] [place] [address]- 3454 Jan, [facility] [address] [facility] [id number] [place] [address]- 2084 Nov, [facility] [address] [id number], [place] [address]- 1427 16 Sep, 2008 [facility] [address] [facility] [id number] [place] [address]- 8357 August, [facility] [address] [facility] [id number], [place] [address]- 9805 Jul, [facility] [address] [facility] [id number] [place] [address]- 8937 May, IMMUNIZATIONS No Known Immunizations SOCIAL HISTORY Never Assessed REASON FOR VISIT Abilify PLAN OF CARE VITAL SIGNS MEDICATIONS Medication Instructions Dosage Frequency Start Date End Date Duration Status Abilify 10 mg Orally Once a day 1 tablet 24h 30 days Active RESULTS No Results PROCEDURES [...] Knee Surgery 07/16/17 Hospitalization History [facility] [place]- left hand/wrist swelling 10/09/2017
--- OUTSIDE RECORDS SUMMARY | 2018-01-01 12:59 | XMS REPORT ---
Author Author PATRICK GALAVIZ Organization [facility] Address [address] [place] [address] Care Team Providers Care Oxygen Equipment Preparer Name Role Phone PATRICK GALAVIZ Unavailable PROBLEMS Type Condition ICD9-CM Code OKT93-ZU Code Onset Dates Condition Status SNOMED Code Problem History of common bile duct surgery Z98.89 Active 849600903 Problem Barretts esophagus K22.70 Active 960455696 Problem 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 Active 83048995 Problem Colon polyp K63.5 Active 93466836 Problem Bilateral low back pain without sciatica M54.5 Active 154254541 Problem Screening breast examination Z12.39 Active 052146737 Problem Postmenopausal Z78.0 Active 17500262 Problem Osteopenia M85.80 Active 627859878 Problem Cigarette nicotine dependence without complication F17.210 Active 15886553 Problem Type 2 diabetes mellitus with diabetic peripheral angiopathy without gangrene E11.51 Active 107580634 Problem Vascular dementia without behavioral disturbance F01.50 Active [id number] Problem Unspecified atherosclerosis of [place] arteries of extremities, unspecified extremity I70.209 Active 629297741144611 Problem Arthritis M19.90 Active 8236407 Problem Chronic atrial fibrillation I48.2 Active 580504525 Problem Chronic obstructive pulmonary disease with acute lower respiratory infection J44.0 Active 867916134 Problem Other chronic pancreatitis K86.1 Active 866663373 Problem Stress incontinence of urine N39.3 Active 37945332 Problem Controlled type 2 diabetes mellitus without complication, without long -term current use of insulin E11.9 Active 549796135 Problem Unspecified psychosis F29 Active 69708762 Problem Xeroderma Q80.9 Active 32381356 Problem COPD (chronic obstructive pulmonary disease) J44.9 Active 56272044 Problem Dementia without behavioral disturbance, unspecified dementia type F03.90 Active 38593878 Problem Gastroparesis K31.84 Active 801237480 Problem Type 2 diabetes mellitus with diabetic neuropathy, without long-term current use of insulin E11.40 Active 29376383 Problem Osteoporosis M81.0 Active 35896173 Problem Atherosclerosis of [place] artery of both lower extremities with intermittent claudication I70.213 Active 189390897484079 Problem Hyperlipidemia E78.5 Active 10868646 Problem Diabetic polyneuropathy associated with type 2 diabetes mellitus E11.42 Active 37888065 Problem Essential tremor G25.0 Active 24080794 Problem Atherosclerotic heart disease of [place]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 I25.118 Active 7851650547692 Problem Generalized anxiety disorder F41.1 Active 551762404 Problem Gastroesophageal reflux disease, esophagitis presence not specified K21.9 Active 705272352 Problem Coronary artery disease involving [place] coronary artery of [place] heart with other form of angina pectoris I25.118 Active 2939071032092 Problem Postconcussion syndrome F07.81 Active 68789938 Problem Chronic pain syndrome G89.4 Active 806296944 Problem Migraine without aura and without status migrainosus, not intractable G43.009 Active 757541365 Problem Paroxysmal atrial fibrillation I48.0 Active 804370632 Problem Migraine without aura and with status migrainosus, not intractable G43.001 Active 597677007 Problem Cervicalgia M54.2 Active 9653182106782 Problem Acute exacerbation of chronic obstructive pulmonary disease (COPD) J44.1 Active 752924703 Problem Major depressive disorder, recurrent episode, moderate F33.1 Active 390446497 Problem Crohn''s disease without complication, unspecified gastrointestinal tract location K50.90 Active 32006019 Problem Chronic fatigue R53.82 Active 46443826 Problem Bipolar affective disorder, currently depressed, moderate F31.32 Active 703637013 ALLERGIES No Information ENCOUNTERS Encounter Location Date Diagnosis [facility] [address] [facility] [id number] [address] [address] Nov, [facility] [address] [facility] [id number] [address] Oct, [place] [address] [facility] [id number] [address] [address] Sep, Encounter for well woman exam with routine gynecological exam Z01.419 ; Screening for STDs (sexually transmitted diseases) Z11.3 ; Screening breast examination Z12.31 and Overweight (BMI 25.0-29.9) E66.3 [facility] [address] [id number] [address] Sep, [facility] [address] [id number] [place] [address] 17196- 4625 Sep, [facility] [address] [id number] [place] [address] 60285- 0174 Sep, [facility] [address] [id number] [place] [address] 09205- 2483 August, [facility] [address] [id number] [place] [address] 71703- 9052 August, [facility] [address] [id number] [place] [address] 44794- 8491 August, Type 2 diabetes mellitus with diabetic neuropathy, without long-term current use of insulin E11.40 and Sprain of right ankle, unspecified ligament, initial encounter S93.401A [facility] [id number] [place] [address] 23901- 3001 August, [facility] [address] [id number] [place] [address] 19717- 4489 August, [facility] [id number] [place] [address] 14810- 3490 August, [facility] [address] [place] [id number] [place] [address] 99644- 0167 August, Gastroesophageal reflux disease, esophagitis presence not specified K21.9 [facility] [address] [address] 1107 August, [facility] [address] [id number] [place] [address] 88023- 9234 August, [facility] [address] [id number] [address]- 6802 August, [facility] [id number] [place] [address] 62522- 3871 August, Type 2 diabetes mellitus with diabetic neuropathy, without long-term current use of insulin E11.40 and Elevated liver enzymes R74.8 [facility] [address] [id number] [place] [address] 24719- 1338 Jul, [facility] [address] [id number] [place] [address] 68441- 5939 Jul, Cough R05 [facility] [address] [place] [id number] [place] [address] 96761- 9314 Jul, [facility] [id number] [place] [address] 55684- 3929 Jul, [facility] [address] [id number] [place] [address] 00789- 7276 Jul, Bipolar affective disorder, currently depressed, moderate F31.32 ; Vascular dementia without behavioral disturbance F01.50 and Generalized anxiety disorder F41.1 [facility] [address] [id number] [place] [address] 40557- 7297 Jul, [facility] [id number] [place] [address] 07882- 8531 Jul, Type 2 diabetes mellitus with diabetic neuropathy, without long-term current use of insulin E11.40 and Elevated liver enzymes R74.8 [facility] [address] [place] [address] 09441- 3985 Jul, [facility] [address] [id number] [place] [address] 57937- 7057 Jul, [facility] [id number] [place] [address] 13946- 3464 Jul, [facility] [address] [place] [id number] [place] [address] 53101- 7913 Jul, Post-menopausal Z78.0 [facility] [address] [place] [address] 55003- 0378 Jul, Stress incontinence of urine N39.3 [facility] [id number] [place] [address] 88407- 3042 Jul, [facility] [address] 63243- 9606 Jul, [facility] [id number] [place] [address] 66510- 7003 Jul, Stress incontinence of urine N39.3 and Cough R05 [facility] [address] [place] [id number] [place] [address] 56940- 0504 Jul, [facility] [address] [id number] [place] [address] 56420- 2688 Jul, [facility] [address] [place] [id number] [place] [address] 13823- 6810 Jul, [facility] [address] 42230- 6506 Jul, Gastroesophageal reflux disease, esophagitis presence not specified K21.9 [facility] [address] [id number] [place] [address] 00972- 9478 Jun, Diabetic polyneuropathy associated with type 2 diabetes mellitus E11.42 [place] [address] [address] [id number] [place] [address] 87738- 7067 Jun, Diabetic polyneuropathy associated with type 2 diabetes mellitus E11.42 ; Coronary artery disease involving [place] coronary artery of [place] heart with other form of angina pectoris I25.118 and Paroxysmal atrial fibrillation I48.0 [facility] [id number] [place] [address] 37984- 2852 Jun, [facility] [address] [id number] [place] [address] 60447- 2575 Jun, [facility] [address] [address] [id number] [place] [address] 79554- 9939 Jun, Gastroenteritis K52.9 [facility] [address] [place] [id number] [place] [address] 87170- 0790 Jun, Gastroenteritis K52.9 [facility] [address] [address]- 1546 Jun, [facility] [address] [id number] [place] [address] 06077- 7590 Jun, [facility] [address] [place] [address] 88309- 3665 Jun, Sprain of right ankle, unspecified ligament, initial encounter S93.401A ; Type 2 diabetes mellitus with diabetic neuropathy, without long-term current use of insulin E11.40 ; Atherosclerosis of [place] artery of both lower extremities with intermittent claudication I70.213 ; Atherosclerotic heart disease of [place]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 I25.118 ; Chronic atrial fibrillation I48.2 and Crohn''s disease without complication, unspecified gastrointestinal tract location K50.90 [facility] [address] [place] [address] 96580 -0734 17 Jun, 2017 Chronic obstructive pulmonary disease with acute lower respiratory infection J44.0 and Cough R05 [place] [address] [place] [address] 72820- 3766 16 Jun, 2017 [facility] [address] [id number] [place] [address] 33111- 0405 15 Jun, 2017 Coughing R05 ; Unspecified atherosclerosis of [place] arteries of extremities, unspecified extremity I70.209 ; Type 2 diabetes mellitus with diabetic peripheral angiopathy without gangrene E11.51 ; Crohn''s disease without complication, unspecified gastrointestinal tract location K50.90 ; Other chronic pancreatitis K86.1 and Chronic atrial fibrillation I48.2 [facility] [id number] [place] [address] 72280 -7420 Jun, [facility] [address] [id number] [place] [address] 56766- 2395 06 Jun, 2017 Bipolar affective disorder, currently depressed, moderate F31.32 ; Vascular dementia without behavioral disturbance F01.50 and Generalized anxiety disorder F41.1 [place] [address] [place] [id number] [place] [address] 34794- 9067 May, Generalized anxiety disorder F41.1 [facility] [address] [id number] [place] [address] 23157- 6770 May, [facility] [address] [id number] [place] [address] 25283- 6846 May, [facility] [id number] [place] [address] 79748- 4203 May, Coughing R05 [facility] [id number] [place] [address] 81433- 1111 May, [facility] [address] [id number] [place] [address] 52869- 2131 May, Bipolar affective disorder, currently depressed, moderate F31.32 ; Vascular dementia without behavioral disturbance F01.50 and Generalized anxiety disorder F41.1 [facility] [id number] [place] [address] 80084- 9539 Apr, Generalized anxiety disorder F41.1 [facility] [id number] [place] [address] 92054- 3050 Apr, [facility] [id number] [place] [address] 90111- 1181 Apr, Vascular dementia without behavioral disturbance F01.50 ; Generalized anxiety disorder F41.1 and Bipolar affective disorder, currently depressed, moderate F31.32 [facility] [address] [id number] [place] [address] 65893- 5042 Apr, Generalized anxiety disorder F41.1 [facility] [id number] [place] [address] 50833 -5860 Apr, Cough R05 and Acute exacerbation of chronic obstructive pulmonary disease (COPD) J44.1 [facility] [id number] [place] [address] 88448- 1890 Apr, [facility] [id number] [place] [address] 31425 -1111 Mar, Cough R05 and Cigarette nicotine dependence without complication F17.210 [place] [address] [place] [id number] [place] [address] 96333- 4323 Mar, [place] [address] 91205- 2932 Feb, Generalized anxiety disorder F41.1 ; Major depressive disorder, recurrent episode, moderate F33.1 ; Vascular dementia without behavioral disturbance F01.50 and Unspecified psychosis F29 [place] [address] [place] [id number] [place] [address] 96633- 9228 Feb, [place] [address] 52524- 6776 Feb, [place] [address] 96950- 0454 Feb, Generalized anxiety disorder F41.1 [place] [address] 53819- 3362 Feb, Generalized anxiety disorder F41.1 [place] [address] [place] [id number] [place] [address] 87582- 8952 Feb, Dizziness R42 ; Chronic fatigue R53.82 ; Postconcussion syndrome F07.81 ; Fall, initial encounter W19.XXXA and Disorientation R41.0 [place] [address] 33039- 1584 03 Feb, 2017 Postconcussion syndrome F07.81 ; Injury of head, initial encounter S09.90XA ; Fall, initial encounter W19.XXXA ; Disorientation R41.0 and Acute cystitis with hematuria N30.01 [place] [address] 67356- 4370 Jan, Gastroesophageal reflux disease, esophagitis presence not specified K21.9 ; Post-menopausal Z78.0 and Migraine without aura and without status migrainosus, not intractable G43.009 [place] [address] [place] [address]- 5747 Jan, [facility] [address] [id number] [place] [address] 05985- 0546 Jan, Generalized anxiety disorder F41.1 ; Major depressive disorder, recurrent episode, moderate F33.1 ; Vascular dementia without behavioral disturbance F01.50 and Unspecified psychosis F29 [place] [address] [place] [id number] [place] [address] 04748- 6229 Jan, Pneumonia of left lower lobe due to infectious organism J18.1 [place] [address] [place] [id number] [place] [address] 62459- 7139 Jan, Migraine without aura and with status migrainosus, not intractable G43.001 [facility] [id number] [place] [address] 90845 -9077 Jan, Migraine without aura and without status migrainosus, not intractable G43.009 [facility] [address] [place] [id number] [place] [address] 75197- 5803 Dec, Hematoma T14.8 [place] [address] [id number] [place] [address] 72168- 3737 Dec, [facility] [id number] [place] [address] 29644 -1126 Nov, Fatigue, unspecified type R53.83 [place] [address] [id number] [place] [address] 03583- 7144 Nov, Scabies B86 and Coronary artery disease involving [place] coronary artery of [place] heart with other form of angina pectoris I25.118 [place] [address] [place] [id number] [place] [address] 10650- 6779 Nov, [place] [address] [place] [id number] [place] [address] 50986- 1286 Nov, [place] [address] [id number] [place] [address] 93563- 9382 Oct, [place] [address] [id number] [place] [address] 51924- 4010 Oct, Generalized anxiety disorder F41.1 and Major depressive disorder, recurrent episode, moderate F33.1 [facility] [id number] [place] [address] 41736- 8347 Oct, Cramp of both lower extremities R25.2 [facility] [id number] [place] [address] 61379- 8562 Oct, Leg cramps R25.2 [facility] [id number] [place] [address] 81132- 4231 Oct, Chronic pain syndrome G89.4 [place] [address] [id number] [place] [address] 69842- 9439 Oct, [place] [address] [id number] [place] [address] 00352- 2458 Oct, [place] [address] [place] [id number] [place] [address] 00540- 9935 Oct, Routine gynecological examination Z01.419 and Screening for breast cancer Z12.31 [place] [address] [place] [id number] [place] [address] 51013- 1696 Sep, Diarrhea R19.7 [facility] [address] [id number] [place] [address] 66705- 2955 Sep, Back pain M54.9 [facility] [address] [id number] [place] [address] 77357- 2464 Sep, [facility] [id number] [place] [address] 39047- 3180 Sep, [facility] [id number] [place] [address] 77820 -9948 August, Xeroderma Q80.9 [facility] [id number] [place] [address] 28440- 2282 August, Dementia without behavioral disturbance, unspecified dementia type F03.90 [place] [id number] [place] [address] 82643- 5358 August, Chronic pain syndrome G89.4 [place] [address] [place] [id number] [place] [address] 64302- 7938 August, [place] [address] 19194- 5842 August, Hyperlipidemia E78.5 ; Other fatigue R53.83 and Other specified hypotension I95.89 [facility] [address] 45864 -8381 August, Dysuria R30.0 ; Other fatigue R53.83 and Other specified hypotension I95.89 [place] [address] 89669- 0339 August, [place] [address] 17879- 7289 Jul, Pain in left knee M25.562 and Gastroenteritis K52.9 [place] [address] 07306- 6084 Jul, [place] [address] 11422- 7463 Jul, Diarrhea R19.7 [facility] [place] [id number] [place] [address] 35096 -4642 Jul, Spider bite, accidental or unintentional, initial encounter T63.301A [place] [address] 94607- 0010 Jul, Primary osteoarthritis of right knee M17.11 and Arthritis M19.90 [place] [address] 62673- 3415 Jul, Generalized anxiety disorder F41.1 and Major depressive disorder, recurrent episode, moderate F33.1 [place] [address] 87194- 5456 07 Jul, 2016 Type 2 diabetes mellitus with diabetic polyneuropathy E11.42 and Temporal headache R51 [facility] [address] 72334- 3892 Jul, Back pain M54.9 [facility] [address] 92805- 7692 Jul, [facility] [address] 17695- 0257 Jul, [facility] [address] 28761- 1599 30 Jun, 2016 Nausea R11.0 [facility] [place] [address] 09873 -1221 23 Jun, 2016 Acute suppurative otitis media of both ears without spontaneous rupture of tympanic membranes, recurrence not specified H66.003 and COPD exacerbation J44.1 [place] [address] 79568- 7255 Jun, Generalized anxiety disorder F41.1 [place] [address] 99623- 6381 16 Jun, 2016 [facility] [place] [address] 09340 -8615 Jun, [facility] [address] 66425 -8341 Jun, Shortness of breath R06.02 and COPD exacerbation J44.1 [place] [address] 54696- 2663 10 Jun, 2016 Eczema, unspecified type L30.9 [place] [address] 91922- 0477 09 Jun, 2016 [place] [address] 64233- 0213 May, [place] [address] [place] [address]- 2638 May, Muscle cramping R25.2 [place] [address] 96437- 8428 May, [facility] [address] 99617- 6036 Apr, Diarrhea R19.7 [facility] [address] 56174- 4172 Apr, [place] [address] 53913- 8198 Apr, Chronic pain syndrome G89.4 [place] [address] 65794- 0896 Apr, Cramp of both lower extremities R25.2 and Vascular dementia without behavioral disturbance F01.50 [place] [address] 17059- 0556 Apr, Type 2 diabetes mellitus with diabetic polyneuropathy E11.42 and Cigarette nicotine dependence without complication F17.210 [place] [address] 24888- 5452 Mar, Generalized anxiety disorder F41.1 [place] [address] [place] [place] [id number] [place] [address] 67996- 3487 Feb, Generalized anxiety disorder F41.1 and Major depressive disorder, recurrent episode, moderate F33.1 [place] [address] [place] [id number] [place] [address] 18326- 5302 Feb, [facility] [address] 66951 -2263 Feb, Dysuria R30.0 and Acute cystitis with hematuria N30.01 [place] [address] [place] [id number] [place] [address] 89700- 4575 Jan, [place] [address] 77057- 4369 Jan, [facility] [address] [id number] [place] [address] 59528- 5019 Jan, [facility] [address] [place] [id number] [place] [address] 43053- 7953 Jan, [facility] [address] [place] [id number] [place] [address] 53437 -9059 10 Jan, 2016 Wasp sting, accidental or unintentional, initial encounter T63.461A [facility] [address] [place] [id number] [place] [address] 00387- 0449 06 Jan, 2016 Encounter for immunization Z23 [place] [address] 31818- 7561 05 Jan, 2016 [place] [address] [place] [id number] [place] [address] 99946- 6553 Jan, [facility] [id number] [place] [address] 39817- 0738 28 Dec, 2015 Generalized anxiety disorder F41.1 and Major depressive disorder, recurrent episode, moderate F33.1 [place] [id number] [place] [address] 79773- 5473 21 Dec, 2015 Routine gynecological examination Z01.419 ; Postmenopausal Z78.0 ; Screening breast examination Z12.39 ; Osteopenia M85.80 and Breast cancer screening Z12.39 [facility] [id number] [place] [address] 25894- 7894 20 Dec, 2015 [facility] [id number] [place] [address] 62192- 9437 19 Dec, 2015 [place] [id number] [place] [address] 06107- 8235 16 Dec, 2015 [facility] [id number] [place] [address] 66313- 0626 16 Dec, 2015 [facility] [id number] [place] [address] 26176- 2095 14 Dec, 2015 [facility] [address] [address] 2176 Dec, [facility] [id number] [address]- 6359 Nov, [facility] [id number] [address] Nov, Cough R05 ; Other viral agents as the cause of diseases classified elsewhere B97.89 and Acute upper respiratory infection, unspecified J06.9 [facility] [id number] [address]- 6106 Nov, [facility] [id number] [address]- 6681 Nov, [facility] [id number] [address]- 0889 Nov, [facility] [id number] [address]- 4746 Nov, [facility] [id number] [address]- 4153 Nov, [facility] [id number] [address]- 9226 Oct, [facility] [id number] [address]- 6373 Oct, [facility] [id number] [address]- 1228 Oct, [facility] [id number] [address]- 2308 Oct, Chronic pain syndrome G89.4 [facility] [id number] [address]- 6563 Sep, Generalized anxiety disorder F41.1 and Major depressive disorder, recurrent episode, moderate F33.1 [facility] [id number] [address]- 6424 Sep, [facility] [id number] [address]- 2584 Sep, [facility] [id number] [place] [address] 71105- 8768 14 Sep, 2015 Generalized anxiety disorder F41.1 [facility] [id number] [place] [address] 21179- 8061 13 Sep, 2015 Cramp of both lower extremities R25.2 and Cervicalgia M54.2 [facility] [id number] [place] [address] 40518- 3772 06 Sep, 2015 Generalized anxiety disorder F41.1 [place] [id number] [place] [address] 03561- 0416 Sep, [facility] [id number] [place] [address] 10596 -7035 August, Rash R21 ; Itching L29.9 and Allergic response, subsequent encounter T78.40XD [facility] [id number] [place] [address] 70529- 9151 August, Primary insomnia F51.01 [facility] [id number] [place] [address] 07238 -4395 August, Rash R21 ; Itching L29.9 and Allergic response, initial encounter T78.40XA [facility] [id number] [place] [address] 95629- 3149 August, [facility] [id number] [place] [address] 43873- 4157 August, Cramp of both lower extremities R25.2 [facility] [id number] [place] [address] 89652- 4898 August, Back pain M54.9 [facility] [id number] [place] [address] 20872- 8534 August, [facility] [id number] [address]- 7741 August, [facility] [id number] [place] [address] 98965 -1965 August, Cramp of both lower extremities R25.2 [facility] [id number] [place] [address] 22327- 3944 August, [facility] [id number] [place] [address] 53034- 0705 August, Syncope R55 ; Paroxysmal atrial fibrillation I48.0 ; Dementia without behavioral disturbance, unspecified dementia type F03.90 and Chronic pain syndrome G89.4 [facility] [id number] [place] [address] 25360- 9578 August, Type 2 diabetes mellitus with diabetic polyneuropathy E11.42 and Syncope R55 [facility] [id number] [place] [address] 82003- 3130 Jul, [facility] [id number] [place] [address] 31242- 5041 Jul, [facility] [id number] [place] [address] 35141- 9870 Jul, [facility] [id number] [place] [address] 74841- 5149 Jul, [facility] [id number] [place] [address] 31378- 8327 Jul, [facility] [id number] [place] [address] 11797- 1209 Jul, UTI (urinary tract infection) N39.0 [facility] [id number] [place] [address] 33351- 2157 Jul, [facility] [id number] [place] [address] 27040- 7607 Jul, Major depressive disorder, recurrent episode, moderate F33.1 and Generalized anxiety disorder F41.1 [facility] [id number] [address]- 8055 14 Jul, 2015 Generalized anxiety disorder F41.1 [facility] [address] [address]- 8874 14 Jul, 2015 Diarrhea R19.7 [facility] [address] [address]- 8126 14 Jul, 2015 [facility] [id number] [place] [address] 12122- 0131 Jun, [facility] [id number] [place] [address] 62880- 9259 Jun, Eczema L30.9 [facility] [id number] [place] [address] 58242- 2206 Jun, [facility] [id number] [place] [address] 59101- 2735 Jun, COPD (chronic obstructive pulmonary disease) J44.9 [facility] [address] [address]- 3960 16 Jun, 2015 [facility] [id number] [address]- 3000 Jun, Major depressive disorder, recurrent episode, moderate F33.1 and Generalized anxiety disorder F41.1 [facility] [address] [address]- 7218 May, [facility] [id number] [address]- 8940 May, UTI (urinary tract infection) N39.0 [facility] [id number] [address]- 6285 17 May, 2015 [facility] [id number] [address]- 9444 08 May, 2015 [facility] [id number] [address]- 8697 May, [facility] [id number] [address]- 3365 May, [facility] [id number] [place] [address] 61470- 5171 Apr, Major depressive disorder, recurrent episode, moderate F33.1 and Generalized anxiety disorder F41.1 [facility] [id number] [place] [address] 37181- 7479 Apr, COPD (chronic obstructive pulmonary disease) J44.9 [facility] [id number] [place] [address] 41536- 7932 Apr, [facility] [id number] [place] [address] 18456- 1683 Apr, Atrial flutter I48.92 [facility] [id number] [place] [address] 41016- 3290 Apr, [facility] [id number] [place] [address] 64594- 8809 Apr, [facility] [id number] [place] [address] 00050- 3148 Mar, [facility] [id number] [address]- 8638 Mar, [facility] [id number] [place] [address] 47902- 8072 Mar, [facility] [id number] [place] [address] 36403- 6565 Mar, Hyperlipidemia E78.5 ; Type 2 diabetes mellitus with diabetic polyneuropathy E11.42 ; Major depressive disorder, recurrent episode, moderate F33.1 and Chronic pain syndrome G89.4 [facility] [id number] [address]- 2134 Mar, [facility] [id number] [place] [address] 31806- 4358 Mar, [facility] [id number] [address]- 4855 Mar, [facility] [address] [facility] [id number] [place] [address] 91440- 8458 Mar, [facility] [id number] [place] [address] 01869- 7469 Feb, COPD (chronic obstructive pulmonary disease) J44.9 and Back pain M54.9 [facility] [address] [facility] [id number] [place] [address] 21540- 5971 Feb, [facility] [id number] [place] [address] 67093- 5296 Feb, [facility] [id number] [place] [address] 01160- 6813 Feb, [facility] [id number] [place] [address] 05003- 7725 Feb, [facility] [id number] [place] [address] 40980- 1267 Feb, [facility] [id number] [place] [address] 53733- 2740 Feb, [facility] [id number] [place] [address] 86350- 6669 Feb, [facility] [id number] [place] [address] 76947- 6119 Feb, [facility] [id number] [place] [address] 04839- 5203 Feb, Diabetes E11.9 ; Back pain M54.9 and COPD (chronic obstructive pulmonary disease) J44.9 [facility] [id number] [address]- 1134 Jan, [facility] [id number] [address]- 8028 Jan, Major depression, recurrent F33.9 and Generalized anxiety disorder F41.1 [facility] [id number] [place] [address] 52438- 9903 Jan, Chronic pain G89.29 [facility] [id number] [place] [address] 01165- 1768 Jan, [facility] [id number] [place] [address] 41286- 1336 Jan, [facility] [id number] [place] [address] 00897- 4742 Jan, [facility] [id number] [place] [address] 97857- 5134 Jan, [facility] [id number] [place] [address] 60026- 9027 Jan, Nicotine dependence F17.200 [facility] [address] 85231- 2488 Jan, Nicotine dependence F17.200 and Back pain M54.9 [facility] [id number] [place] [address] 62907- 9886 Jan, [facility] [id number] [place] [address] 45895- 2684 28 Dec, 2014 [facility] [id number] [place] [address] 26831- 1187 25 Dec, 2014 Anxiety, generalized 300.02 and Major depression, recurrent 296.30 [facility] [id number] [place] [address] 45253- 1686 24 Sep, 2014 [facility] [id number] [place] [address] 98766- 1632 21 Dec, 2014 [facility] [id number] [place] [address] 99380- 9083 17 Dec, 2014 [facility] [id number] [place] [address] 04641- 1651 15 Dec, 2014 [facility] [address] [address]- 1332 14 Dec, 2014 [facility] [id number] [place] [address] 59910 2541 11 Dec, 2014 [facility] [id number] [address]- 2548 10 Dec, 2014 [facility] [id number] [place] [address] 46798 2542 08 Dec, 2014 Skin tear 879.8 [facility] [id number] [place] [address] 18622 2549 08 Dec, 2014 Routine gynecological examination V72.31 ; Breast cancer screening V76.10 and Family history of breast cancer in first degree relative V16.3 [facility] [id number] [place] [address] 11596- 8962 Dec, [facility] [id number] [place] [address] 91355- 3110 Dec, [facility] [id number] [place] [address] 36760- 1662 Nov, [facility] [id number] [place] [address] 00842- 7560 Nov, [facility] [id number] [address]- 2144 Nov, Poor balance 781.99 and Vascular dementia, uncomplicated 290.40 [facility] [id number] [address]- 1941 Nov, [facility] [id number] [place] [address] 77069- 1682 Nov, Major depression, recurrent 296.30 and Anxiety, generalized 300.02 [facility] [address] [address]- 2544 Nov, [facility] [id number] [place] [address] 32174- 0283 Nov, [facility] [address] [address]- 3808 Nov, [facility] [id number] [place] [address] 31253- 0736 Nov, [facility] [id number] [address]- 5464 Nov, Vascular dementia, uncomplicated 290.40 and Lumbago 724.2 [facility] [id number] [place] [address] 65231- 1655 Nov, [facility] [id number] [place] [address] 54469- 2853 Nov, [facility] [id number] [place] [address] 04467- 2340 Nov, [facility] [id number] [place] [address] 45565- 8406 Oct, [facility] [id number] [place] [address] 52524- 0189 Oct, [facility] [id number] [place] [address] 71670- 0274 Oct, [facility] [id number] [address]- 4668 Oct, COPD (chronic obstructive pulmonary disease) 496 and Hyperlipidemia 272.4 [facility] [id number] [address]- 0091 Oct, Major depression, recurrent 296.30 and Anxiety, generalized 300.02 [facility] [address] [address]- 7305 Oct, [facility] [address] [address]- 4285 Oct, [facility] [id number] [address]- 6865 Oct, [facility] [id number] [address]- 7661 Sep, Lumbago 724.2 and Anxiety state, unspecified 300.00 [facility] [id number] [address]- 9516 Sep, [facility] [id number] [address]- 6615 Sep, [facility] [id number] [place] [address] 61311- 8133 August, [facility] [id number] [place] [address] 52188- 8780 August, Major depression, recurrent 296.30 ; Anxiety, generalized 300.02 and No condition on Crozier II V71.09 [facility] [id number] [address]- 5156 August, [facility] [id number] [place] [address] 18083- 8423 August, [facility] [id number] [address]- 5723 Jul, [facility] [id number] [address]- 7160 Jul, [facility] [address] [address]- 9220 Jul, [facility] [id number] [address]- 9999 Jun, [facility] [id number] [address]- 5340 Jun, [facility] [id number] [address]- 0979 Jun, [facility] [id number] [address]- 3215 Jun, [facility] [id number] [place] [address]- 2938 26 Jun, 2014 [facility] [place] [facility] [address] [id number] [place] [address]- 9003 Jun, 2014 [facility] [place] [facility] [address] [id number] [place] [address]- 8446 23 Jun, 2014 [facility] [place] [facility] [address] [id number] [place] [address]- 4686 17 Jun, 2014 [facility] [place] [facility] [address] [id number] [place] [address]- 1466 Jun, 2014 [facility] [place] [facility] [address] [id number] [place] [address]- 8783 Jun, [facility] [place] [facility] [address] [id number] [place] [address]- 7681 Jun, 2014 [facility] [place] [facility] [address] [id number] [place] [address]- 6637 10 Jun, 2014 [facility] [place] [facility] [address] [id number] [place] [address]- 2525 Jun, [facility] [place] [facility] [address] [id number] [place] [address]- 0472 Jun, 2014 [facility] [place] [facility] [address] [id number] [place] [address]- 8117 Jun, [facility] [place] [facility] [address] [id number] [place] [address]- 3614 Jun, [facility] [place] [facility] [address] [id number] [place] [address]- 3264 May, [facility] [place] [facility] [address] [id number] [place] [address]- 1556 May, 2014 [facility] [place] [facility] [address] [id number] [place] [address]- 0736 May, [facility] [place] [facility] [address] [id number] [place] [address]- 5951 May, [facility] [place] [facility] [address] [id number] [place] [address]- 2852 May, 2014 [facility] [place] [facility] [address] [id number] [place] [address] 2546 May, 2014 [facility] [place] [facility] [address] [id number] [place] [address]- 1876 May, 2014 [facility] [place] [facility] [address] [id number] [place] [address]- 1972 May, 2014 [facility] [place] [facility] [address] [id number] [place] [address]- 4276 May, 2014 [facility] [place] [facility] [address] [id number] [place] [address]- 2656 May, 2014 [facility] [place] [facility] [address] [id number] [place] [address]- 1011 May, 2014 [facility] [place] [facility] [address] [id number] [place] [address]- 4700 May, 2014 [facility] [place] [facility] [address] [id number] [place] [address]- 6766 May, [facility] [place] [facility] [address] [id number] [place] [address]- 7186 May, [facility] [place] [facility] [address] [id number] [place] [address]- 8716 Apr, [facility] [place] [facility] [address] [id number] [place] [address]- 2483 Apr, [facility] [place] [facility] [address] [id number] [place] [address] Apr, [facility] [place] [facility] [address] [id number] [place] [address] Apr, [facility] [place] [facility] [address] [facility] [id number] [place] [address] Apr, [facility] [place] [facility] [address] [id number] [place] [address] Apr, [facility] [address] [id number] [place] [address] Apr, [facility] [place] [facility] [address] [id number] [place] [address] Apr, [facility] [address] [id number] [place] [address] Apr, [facility] [place] [facility] [address] [id number] [place] [address] Apr, [facility] [address] [id number] [place] [address] Apr, [facility] [address] [id number] [place] [address] Apr, [facility] [address] [id number] [place] [address] Mar, [facility] [address] [id number] [place] [address] 31 Mar, 2014 [facility] [address] [id number] [place] [address] 30 Mar, 2014 [facility] [address] [id number] [place] [address] 30 Mar, 2014 [facility] [place] [facility] [address] [id number] [place] [address] 29 Mar, 2014 [facility] [place] [facility] [address] [id number] [place] [address] 29 Mar, 2014 [facility] [place] [facility] [address] [id number] [place] [address] Mar, [facility] [place] [facility] [address] [id number] [place] [address] Mar, [facility] [place] [facility] [address] [id number] [place] [address] Mar, [facility] [place] [facility] [address] [id number] [place] [address] 15 Mar, 2014 [facility] [place] [facility] [address] [id number] [place] [address] Mar, [facility] [place] [facility] [address] [id number] [place] [address] Mar, [facility] [place] [facility] [address] [id number] [place] [address] Mar, [facility] [place] [facility] [address] [id number] [place] [address] Mar, [facility] [place] [facility] [address] [id number] [place] [address] Mar, [facility] [place] [facility] [address] [id number] [place] [address] Mar, [facility] [facility] [address] [id number] [place] [address] Mar, [facility] [place] [facility] [address] [id number] [place] [address] 6961 Mar, [facility] [place] [facility] [address] [id number] [place] [address] 8255 Mar, [facility] [place] [facility] [address] [id number] [place] [address] 7786 Mar, [facility] [place] [facility] [address] [id number] [place] [address]- 2983 Feb, [facility] [place] [facility] [address] [id number] [place] [address]- 6521 Feb, [facility] [place] [facility] [address] [id number] [place] [address]- 8501 Feb, [facility] [place] [address] [id number] [place] [address] Feb, [facility] [place] [facility] [address] [id number] [address]- [address]22 Feb, [facility] [place] [address] [id number] [place] [address] 1848 Feb, [facility] [place] [address] [id number] [place] [address]- 3350 Feb, [facility] [place] [facility] [address] [id number] [place] [address]- 4889 Feb, [facility] [place] [facility] [address] [id number] [place] [address]- 8746 Feb, [facility] [address] [id number] [place] [address]- 9727 Feb, [facility] [place] [address] [id number] [place] [address]- 4922 Feb, [facility] [place] [address] [id number] [place] [address]- 3546 Feb, [facility] [facility] [address] [id number] [place] [address]- 7718 Feb, [facility] [place] [facility] [address] [id number] [place] [address]- 1724 Feb, [facility] [place] [address] [id number] [place] [address]- 1285 Feb, [facility] [place] [address] [id number] [place] [address]- 4123 Feb, [facility] [facility] [address] [id number] [address]- 8478 Feb, [facility] [address] [id number] [place] [address]- 6270 Jan, [facility] [address] [id number] [place] [address]- 2861 Jan, [facility] [address] [id number] [address]- 4619 Jan, [facility] [address] [id number] [place] [address]- 5552 Jan, [facility] [address] [id number] [place] [address]- 4922 Jan, [facility] [address] [id number] [place] Jan, [facility] [address] [id number] [place] [address]- 2973 Jan, [facility] [address] [id number] [place] [address]- 9126 Jan, [facility] [address] [id number] [place] [address]- 1098 Jan, [facility] [address] [id number] [place] [address]- 7198 Jan, [facility] [address] [id number] [place] [address]- 9227 Jan, [facility] [address] [id number] [place] [address]- 0155 Dec, [facility] [address] [id number] [place] [address]- 3179 Dec, [facility] [place] [facility] [address] [id number] [place] [address]- 3570 Nov, [facility] [address] [id number] [place] [address]- 4208 Nov, [facility] [address] [id number] [place] [address]- 9180 Nov, [facility] [address] [id number] [place] [address]- 5546 Nov, [facility] [address] [id number] [place] [address] Nov, [facility] [address] [id number] [place] [address]- 1024 Nov, [facility] [address] [id number] [place] [address]- 1305 Nov, [facility] [address] [id number] [place] [address]- 8867 Oct, [facility] [address] [id number] [place] [address]- 4487 Oct, [facility] [address] [id number] [place] [address]- 0428 Oct, [facility] [address] [id number] [place] [address]- 9864 Oct, [facility] [address] [id number] [place] [address]- 8034 Sep, [facility] [address] [id number] [place] [address]- 1806 Sep, [facility] [address] [id number] [place] [address]- 0927 Sep, [facility] [address] [id number] [place] [address]- 0562 Sep, [facility] [address] [id number] [place] [address]- 8822 Sep, [facility] [address] [id number] [place] [address]- 8155 Sep, [facility] [address] [id number] [place] [address]- 8428 Sep, [facility] [address] [id number] [place] [address]- 5626 Sep, [facility] [address] [id number] [place] [address]- 4571 Sep, [facility] [address] [id number] [place] [address]- 2938 Sep, [facility] [address] [id number] [place] [address]- 5158 Sep, [facility] [address] [id number] [place] [address]- 5752 Sep, [facility] [address] [id number] [place] [address]- 3922 Sep, [facility] [address] [id number] [place] [address]- 8634 Sep, [facility] [address] [id number] [place] [address]- 1018 August, [facility] [address] [id number] [place] [address]- 7280 August, [facility] [address] [id number] [place] [address]- 4023 August, [facility] [address] [id number] [place] [address]- 7889 August, [facility] [address] [id number] [place] [address]- 0061 August, [facility] [address] [id number] [place] [address]- 3426 August, [facility] [address] [id number] [place] [address]- 3406 August, [facility] [address] [id number] [place] [address]- 5618 August, [facility] [address] [id number] [place] [address]- 1716 August, [facility] [address] [id number] [place] [address]- 5849 August, [facility] [address] [id number] [place] [address]- 3953 August, [facility] [address] [id number] [place] [address]- 7959 August, [facility] [address] [id number] [place] [address]- 5557 August, [facility] [address] [id number] [place] [address]- 4409 August, [facility] [address] [id number] [place] [address]- 9110 August, [facility] [address] [id number] [place] [address]- 2807 August, [facility] [address] [id number] [place] [address]- 5549 August, [facility] [address] [id number] [place] [address]- 0812 August, [facility] [address] [id number] [place] [address]- 5174 August, [facility] [address] [id number] [place] [address]- 3203 Jul, [facility] [address] [id number] [place] [address]- 4655 Jul, [facility] [address] [id number] [place] [address]- 8129 Jul, [facility] [address] [id number] [place] [address]- 5913 Jul, [facility] [address] [id number] [place] [address]- 0276 Jun, [facility] [address] [id number] [place] [address]- 8468 Jun, [facility] [address] [id number] [place] [address]- 3628 Jun, [facility] [address] [id number] [place] [address]- 2773 Jun, [facility] [address] [id number] [place] [address]- 4791 17 Jun, 2013 [facility] [address] [id number] [place] [address]- 2104 17 Jun, 2013 [facility] [address] [id number] [place] [address]- 1640 Jun, [facility] [address] [facility] [id number] [place] [address]- 4393 Jun, [facility] [address] [id number] [place] [address]- 6381 Jun, [facility] [address] [id number] [place] [address]- 4465 Jun, [facility] [address] [facility] [id number] [place] [address]- 5205 May, [facility] [address] [facility] [id number] [place] [address]- 4624 May, [facility] [address] [facility] [id number] [place] [address]- 0698 May, [facility] [address] [facility] [id number] [place] [address]- 3207 May, [facility] [address] [facility] [id number] [place] [address]- 9621 May, [facility] [address] [facility] [id number] [place] [address]- 6925 May, [facility] [address] [facility] [id number] [place] [address]- 3562 20 May, 2013 [facility] [address] [facility] [id number] [place] [address]- 0938 May, [facility] [address] [facility] [id number] [place] [address]- 2155 May, [facility] [address] [facility] [id number] [place] [address]- 3299 18 May, 2013 [facility] [address] [id number] [place] [address]- 5330 18 May, 2013 [facility] [address] [id number] [place] [address]- 8836 17 May, 2013 [facility] [address] [id number] [place] [address]- 6636 May, [facility] [address] [id number] [place] [address]- 1646 May, [facility] [address] [id number] [place] [address]- 6739 May, [facility] [address] [id number] [place] [address]- 9244 May, [facility] [address] [id number] [place] [address]- 9626 May, [facility] [address] [id number] [place] [address]- 3238 Apr, [facility] [address] [id number] [place] [address]- 5214 Apr, [facility] [address] [id number] [place] [address]- 6945 Apr, [facility] [address] [id number] [place] [address]- 5572 Apr, [facility] [address] [id number] [place] [address]- 8900 Apr, [facility] [address] [id number] [place] [address]- 7429 Apr, [facility] [address] [id number] [place] [address]- 8478 Apr, [facility] [address] [id number] [place] [address]- 0643 Mar, [facility] [address] [id number] [place] [address]- 4687 Mar, [facility] [address] [id number] [place] [address]- 2376 Mar, [facility] [address] [id number] [place] [address] Mar, [facility] [address] [id number] [place] [address]- 9730 Mar, [facility] [address] [id number] [place] [address]- 6162 Mar, [facility] [address] [id number] [place] [address]- 8572 Mar, [facility] [address] [id number] [place] [address]- 1666 Mar, [facility] [address] [id number] [place] [address]- 1402 Mar, [facility] [address] [id number] [place] [address]- 3905 Mar, [facility] [address] [id number] [place] [address]- 8068 Mar, [facility] [address] [id number] [place] [address]- 6432 Feb, [facility] [address] [id number] [place] [address]- 5166 Feb, [facility] [address] [id number] [place] [address]- 2811 Feb, [facility] [address] [id number] [place] [address]- 8097 Feb, [facility] [address] [id number] [place] [address]- 7855 Feb, [facility] [address] [id number] [place] [address]- 4973 Feb, [facility] [place] [facility] [address] [id number] [place] [address]- 0696 15 Feb, 2013 [facility] [place] [facility] [address] [id number] [place] [address]- 7325 14 Feb, 2013 [facility] [place] [facility] [address] [id number] [place] [address]- 7747 14 Feb, 2013 [facility] [place] [facility] [address] [id number] [place] [address]- 3748 Feb, [facility] [place] [facility] [address] [id number] [place] [address]- 3160 13 Feb, 2013 [facility] [place] [facility] [address] [id number] [place] [address]- 4642 Feb, [facility] [place] [facility] [address] [id number] [place] [address]- 3534 Feb, [facility] [place] [facility] [address] [id number] [place] [address]- 8184 Feb, [facility] [place] [facility] [address] [id number] [place] [address]- 1647 Feb, [facility] [place] [facility] [address] [id number] [place] [address]- 5889 Feb, [facility] [place] [facility] [address] [id number] [place] [address]- 9044 Jan, [facility] [place] [facility] [address] [id number] [place] [address]- 0189 Jan, [facility] [place] [facility] [address] [id number] [place] [address]- 0907 Jan, [facility] [place] [facility] [address] [id number] [place] [address]- 2308 Jan, [facility] [place] [facility] [address] [id number] [place] [address]- 1352 Jan, [facility] [place] [facility] [address] [id number] [place] [address]- 8294 Jan, [facility] [place] [facility] [address] [id number] [place] [address]- 7482 Jan, [facility] [place] [facility] [address] [id number] [place] [address]- 8002 Jan, [facility] [place] [facility] [address] [id number] [place] [address]- 9456 Jan, [facility] [place] [facility] [address] [id number] [place] [address]- 8585 27 Dec, 2012 [facility] [place] [facility] [address] [id number] [place] [address]- 2478 Dec, [facility] [place] [facility] [address] [id number] [place] [address]- 7048 Dec, [facility] [place] [facility] [address] [id number] [place] [address]- 3205 Dec, [facility] [place] [facility] [address] [id number] [place] [address]- 6871 Dec, [facility] [place] [facility] [address] [id number] [place] [address]- 3569 Dec, [facility] [place] [facility] [address] [id number] [place] [address]- 2905 Nov, [facility] [place] [facility] [address] [id number] [place] [address]- 4736 Nov, [facility] [place] [facility] [address] [id number] [place] [address]- 1627 Nov, [facility] [place] [facility] [address] [id number] [place] [address]- 7534 Nov, [facility] [place] [facility] [address] [id number] [place] [address]- 7659 Nov, [facility] [place] [facility] [address] [id number] [place] [address]- 2573 Nov, [facility] [place] [facility] [address] [id number] [place] [address]- 6057 15 Nov, 2012 [facility] [place] [facility] [address] [id number] [place] [address]- 6507 15 Nov, 2012 [facility] [place] [facility] [address] [id number] [place] [address]- 2917 14 Nov, 2012 [facility] [place] [facility] [address] [id number] [place] [address]- 7219 Nov, [facility] [place] [facility] [address] [id number] [place] [address]- 8902 Oct, [facility] [place] [facility] [address] [id number] [place] [address]- 9055 Oct, [facility] [place] [facility] [address] [id number] [place] [address]- 8470 Oct, [facility] [place] [facility] [address] [id number] [place] [address]- 0064 Oct, [facility] [place] [facility] [address] [id number] [place] [address]- 6535 Oct, [facility] [place] [facility] [address] [id number] [place] [address]- 0604 Oct, [facility] [place] [facility] [address] [id number] [place] [address]- 5540 Oct, [facility] [place] [facility] [address] [id number] [place] [address]- 5639 Oct, [facility] [place] [facility] [address] [id number] [place] [address]- 0740 Sep, [facility] [place] [facility] [address] [id number] [place] [address]- 8666 Sep, [facility] [place] [facility] [address] [id number] [place] [address]- 8385 Sep, [facility] [place] [facility] [address] [id number] [place] [address]- 7146 Sep, [facility] [address] [id number] [place] [address] Sep, [facility] [place] [facility] [address] [id number] [place] [address] Sep, [facility] [address] [id number] [place] [address] Sep, [facility] [place] [facility] [address] [id number] [place] [address] Sep, [facility] [address] [id number] [place] [address] August, [facility] [address] [id number] [place] [address] August, [facility] [address] [id number] [place] [address] August, [facility] [address] [id number] [place] [address] August, [facility] [address] [id number] [place] [address] August, [facility] [address] [id number] [place] [address] Jul, [facility] [place] [facility] [address] [id number] [place] [address] Jul, [facility] [place] [facility] [address] [id number] [address] Jul, [facility] [place] [facility] [address] [id number] [place] [address] Jul, [facility] [place] [facility] [address] [id number] [place] [address] Jul, [facility] [place] [facility] [address] [id number] [place] [address] Jun, [facility] [place] [facility] [address] [id number] [place] [address] 18 Jun, 2012 [facility] [address] [id number] [place] [address] 15 Jun, 2012 [facility] [place] [facility] [address] [id number] [place] [address] 14 Jun, 2012 [facility] [address] [id number] [place] [address]- 9021 12 Jun, 2012 [facility] [place] [facility] [address] [id number] [place] [address] 08 Jun, 2012 [facility] [address] [id number] [place] [address] 08 Jun, 2012 [facility] [place] [facility] [address] [id number] [place] [address]- 2310 02 Jun, 2012 [facility] [address] [id number] [place] [address] 3969 Jun, [facility] [address] [id number] [place] [address] 27 May, 2012 [facility] [address] [id number] [place] [address] 25 May, 2012 [facility] [address] [id number] [place] [address] 20 May, 2012 [facility] [place] [facility] [address] [id number] [place] [address] 12 May, 2012 [facility] [place] [facility] [address] [id number] [place] [address]- 2658 15 Apr, 2012 [facility] [place] [facility] [address] [id number] [place] [address] 4036 09 Apr, 2012 [facility] [place] [facility] [address] [id number] [place] [address]487 08 Apr, 2012 [facility] [place] [facility] [address] [id number] [place] [address]- [address] Apr, [facility] [address] [id number] [place] [address] Apr, [facility] [address] [id number] [place] [address] Apr, [facility] [address] [id number] [place] [address] Apr, [facility] [address] [id number] [place] [address] Mar, [facility] [address] [facility] [id number] Mar, [facility] [address] [id number] [place] [address]83 Mar, [facility] [address] [id number] [place] [address]101 Mar, [facility] [address] [id number] [place] [address]- [address] Mar, [facility] [address] [id number] [place] [address]478 Mar, [facility] [address] [id number] [place] [address]38 Mar, [facility] [address] [id number] [place] [address] Mar, [facility] [address] [id number] [place] [address]- [address] Mar, [facility] [address] [id number] [place] [address]- [address]662 Mar, [facility] [address] [id number] [place] [address] Mar, [facility] [address] [id number] [place] [address]- 4186 Mar, [facility] [address] [id number] [place] [address]- 0905 Mar, [facility] [place] [facility] [address] [id number] [place] [address]- [address] Mar, [facility] [place] [facility] [address] [id number] [place] [address]- [address]594 Mar, [facility] [place] [facility] [address] [id number] [place] [address]- 0279 Mar, [facility] [place] [facility] [address] [id number] [place] [address]- 6231 Mar, [facility] [place] [facility] [address] [id number] [place] [address]- [address]452 Feb, [facility] [place] [facility] [address] [id number] [place] [address]- 2489 Feb, [facility] [place] [facility] [address] [id number] [place] [address]- 6310 Feb, [facility] [place] [facility] [address] [id number] [place] [address]- 6725 Feb, [facility] [place] [facility] [address] [id number] [place] [address]- 9068 Feb, [facility] [place] [facility] [address] [id number] [place] [address]- 1833 Feb, [facility] [place] [facility] [address] [id number] [place] [address]- 1707 Feb, [facility] [place] [facility] [address] [id number] [place] [address]- [address]246 Feb, [facility] [place] [facility] [address] [id number] [place] [address]- 4876 Feb, [facility] [place] [facility] [address] [id number] [place] [address]- 3938 Feb, [facility] [place] [facility] [address] [id number] [place] [address]- 2029 Feb, [facility] [place] [facility] [address] [id number] [place] [address]- 5214 Feb, [facility] [place] [facility] [address] [id number] [place] [address]- 3091 Feb, [facility] [place] [facility] [address] [id number] [place] [address]- 7270 Feb, [facility] [place] [facility] [address] [id number] [place] [address] Feb, [facility] [place] [facility] [address] [id number] [place] [address] Feb, [facility] [place] [facility] [address] [id number] [place] [address] 1070 Jan, [facility] [place] [facility] [address] [id number] [place] [address] 7096 Jan, [facility] [place] [facility] [address] [id number] [place] [address] 9413 Jan, [facility] [place] [facility] [address] [id number] [place] [address]- 1059 Jan, [facility] [place] [facility] [address] [id number] [place] [address]- 9974 Jan, [facility] [place] [facility] [address] [facility] [id number] [place] [address]- 9069 Jan, [facility] [place] [facility] [address] [id number] [place] [address]- 1088 Jan, [facility] [place] [facility] [address] [id number] [address] Jan, [facility] [place] [facility] [address] [id number] [place] [address]- [address]30 Jan, [facility] [place] [facility] [address] [facility] [id number] [place] [address]- 6191 Jan, [facility] [place] [facility] [address] [id number] [address]- 115[address] Jan, [facility] [place] [facility] [address] [id number] [place] [address]- 1667 Jan, [facility] [place] [facility] [address] [id number] [place] [address]- 0478 Jan, [facility] [place] [facility] [address] [id number] [place] [address]- 5484 Jan, [facility] [place] [facility] [address] [id number] [place] [address]- 8419 08 Jan, 2012 [facility] [place] [facility] [address] [id number] [place] [address]- 2269 05 Jan, 2012 [facility] [place] [facility] [address] [id number] [place] [address]- 9707 04 Jan, 2012 [facility] [place] [facility] [address] [id number] [place] [address]- 3413 21 Dec, 2011 [facility] [place] [facility] [address] [id number] [place] [address]- 5276 20 Dec, 2011 [facility] [place] [facility] [address] [id number] [place] [address]- 2311 18 Dec, 2011 [facility] [place] [facility] [address] [id number] [place] [address]- 4522 18 Dec, 2011 [facility] [place] [facility] [address] [id number] [place] [address]- 2619 10 Dec, 2011 [facility] [place] [facility] [address] [id number] [place] [address]- 2627 10 Dec, 2011 [facility] [place] [facility] [address] [id number] [place] [address]- 9636 10 Dec, 2011 [facility] [place] [facility] [address] [id number] [place] [address]- 0987 07 Dec, 2011 [facility] [place] [facility] [address] [id number] [place] [address]- 6368 30 Nov, 2011 [facility] [place] [facility] [address] [id number] [place] [address]- 8258 Nov, [facility] [place] [facility] [address] [id number] [place] [address]- 5039 Nov, [facility] [place] [facility] [address] [id number] [place] [address]- 8316 Nov, [facility] [place] [facility] [address] [id number] [place] [address]- 3696 Nov, [facility] [place] [facility] [address] [id number] [place] [address]- 3613 Nov, [facility] [place] [facility] [address] [id number] [place] [address]- 3864 Oct, [facility] [place] [facility] [address] [id number] [place] [address]- 5012 Oct, [facility] [place] [facility] [address] [id number] [place] [address]- 9241 Oct, [facility] [place] [facility] [address] [id number] [place] [address]- 9653 Oct, [facility] [place] [facility] [address] [id number] [place] [address]- 2268 Oct, [facility] [place] [facility] [address] [id number] [place] [address]- 3765 Oct, [facility] [place] [facility] [address] [id number] [place] [address]- 2487 Oct, [facility] [place] [facility] [address] [id number] [place] [address]- 1618 Sep, [facility] [place] [facility] [address] [id number] [place] [address]- 4461 Sep, [facility] [place] [facility] [address] [id number] [place] [address]- 3395 Sep, [facility] [place] [facility] [address] [id number] [place] [address]- 6660 Sep, [facility] [place] [facility] [address] [id number] [place] [address]- 7773 19 Sep, 2011 [facility] [address] [id number] [place] [address]- 6765 15 Sep, 2011 [facility] [address] [id number] [place] [address]- 3332 14 Sep, 2011 [facility] [address] [id number] [place] [address]- 7005 Sep, [facility] [address] [id number] [place] [address]- 8474 05 Sep, 2011 [facility] [address] [id number] [place] [address]- 0562 04 Sep, 2011 [facility] [address] [id number] [place] [address]- 6345 August, [facility] [address] [id number] [place] [address]- 5019 August, [facility] [address] [id number] [place] [address]- 1718 August, [facility] [address] [id number] [place] [address]- 5230 August, [facility] [address] [id number] [place] [address]- 9505 August, [facility] [address] [id number] [place] [address]- 7195 Jul, [facility] [address] [id number] [place] [address]- 5216 Jul, [facility] [place] [facility] [address] [id number] [place] [address]- 1184 25 Jul, 2011 [facility] [place] [facility] [address] [id number] [place] [address]- 1365 17 Jul, 2011 [facility] [address] [id number] [place] [address]- 0025 Jul, [facility] [address] [id number] [place] [address]- 1060 Jul, [facility] [place] [facility] [address] [id number] [place] [address]- 9986 Jul, [facility] [place] [facility] [address] [id number] [place] [address]- 2536 Jun, [facility] [place] [facility] [address] [id number] [place] [address]- 9676 Jun, [facility] [place] [facility] [address] [id number] [place] [address]- 9701 Jun, [facility] [place] [facility] [address] [id number] [place] [address]- 6806 Jun, [facility] [place] [facility] [address] [facility] [id number] [place] [address]- 7286 Jun, [facility] [place] [facility] [address] [id number] [place] [address]- 0306 May, [facility] [place] [facility] [address] [id number] [place] [address]- 9865 May, [facility] [place] [facility] [address] [facility] [id number] [place] [address]- 8406 May, [facility] [place] [facility] [address] [id number] [place] [address]- 2616 May, [facility] [place] [facility] [address] [id number] [address]- 3486 May, [facility] [place] [facility] [address] [id number] [place] [address]- 1986 May, [facility] [place] [facility] [address] [id number] [place] [address]- 2836 Apr, [facility] [place] [facility] [address] [id number] [place] [address]- 6416 Mar, [facility] [place] [facility] [address] [id number] [place] [address]- 7689 11 Feb, 2011 [facility] [place] [facility] [address] [id number] [place] [address]- 9885 07 Feb, 2011 [facility] [place] [facility] [address] [id number] [place] [address] Feb, [facility] [place] [facility] [address] [id number] [place] [address]- 9755 Feb, [facility] [place] [facility] [address] [id number] [place] [address]- 4085 31 Jan, 2011 [facility] [place] [facility] [address] [id number] [place] [address]- 1796 27 Jan, 2011 [facility] [place] [facility] [address] [id number] [place] [address]- 4673 Jan, [facility] [place] [facility] [address] [id number] [place] [address]- 5699 24 Jan, 2011 [facility] [place] [facility] [address] [id number] [place] [address]- 1453 14 Jan, 2011 [facility] [place] [facility] [address] [id number] [place] [address]- 9028 Dec, [facility] [place] [facility] [address] [id number] [place] [address]- 6694 Oct, [facility] [place] [facility] [address] [id number] [place] [address]- 8341 August, [facility] [place] [facility] [address] [id number] [place] [address]- 8701 Mar, [facility] [place] [facility] [address] [id number] [place] [address]- 1455 27 Mar, 2010 [facility] [place] [facility] [address] [id number] [place] [address]- 2542 16 Mar, 2010 [facility] [place] [facility] [address] [id number] [place] 8435 15 Mar, 2010 [facility] [place] [facility] [address] [id number] [place] [address]- 8542 15 Mar, 2010 [facility] [place] [facility] [address] [id number] [place] [address]- 4177 Mar, [facility] [place] [facility] [address] [id number] [place] [address]- 7025 Mar, [facility] [place] [facility] [address] [id number] [place] [address]- 6211 Feb, [facility] [address] [id number] [place] [address]- 6323 Feb, [facility] [place] [facility] [address] [id number] [place] [address]- 1557 Feb, [facility] [address] [id number] [place] [address]- 7246 Jan, [facility] [address] [id number] [place] [address]- 8959 Jan, [facility] [address] [id number] [place] [address]- 2036 Jan, [facility] [place] [facility] [address] [id number] [place] [address]- 1081 Nov, [facility] [place] [facility] [address] [id number] [place] [address]- 9253 Sep, [facility] [place] [facility] [address] [id number] [address]- 1746 August, [facility] [place] [facility] [address] [id number] [place] [address]- 3699 Mar, [facility] [place] [facility] [address] [id number] [place] [address]- 9256 Mar, [facility] [place] [facility] [address] [id number] [place] [address]- 2543 Feb, [facility] [place] [facility] [address] [id number] [place] [address]- 6948 Feb, [facility] [id number] [address]- 9865 Feb, [facility] [id number] [address]- 5045 Feb, [facility] [id number] [address]- 8304 Feb, [facility] [id number] [address]- 9080 Jan, [facility] [id number] [address]- 9933 Jan, [facility] [id number] [place] [address]- 5208 Jan, [facility] [id number] [address]- 3014 Jan, [facility] [id number] [address]- 2209 Nov, [facility] [id number] [address]- 3144 Sep, [facility] [id number] [address]- 8337 August, [facility] [id number] [address]- 0655 Jul, [facility] [id number] [address]- 7282 May, IMMUNIZATIONS No Known Immunizations SOCIAL HISTORY [...]
--- OUTSIDE RECORDS SUMMARY | 2018-01-01 13:01 | XMS REPORT ---
Author Author PATRICK GALAVIZ Organization [facility] Address [address] [place] [address] Care Team Providers Care Nuclear Scientist Name Role Phone PATRICK GALAVIZ Unavailable PROBLEMS Type Condition ICD9-CM Code GPT12-WZ Code Onset Dates Condition Status SNOMED Code Problem History of common bile duct surgery Z98.89 Active 178580159 Problem Barretts esophagus K22.70 Active 689759339 Problem 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 Active 64965396 Problem Colon polyp K63.5 Active 80371414 Problem Bilateral low back pain without sciatica M54.5 Active 230803301 Problem Screening breast examination Z12.39 Active 237361839 Problem Postmenopausal Z78.0 Active 45920050 Problem Osteopenia M85.80 Active 771606120 Problem Cigarette nicotine dependence without complication F17.210 Active 37920837 Problem Type 2 diabetes mellitus with diabetic peripheral angiopathy without gangrene E11.51 Active 677465809 Problem Vascular dementia without behavioral disturbance F01.50 Active [id number] Problem Unspecified atherosclerosis of [place] arteries of extremities, unspecified extremity I70.209 Active 180230517629625 Problem Arthritis M19.90 Active 9531874 Problem Chronic atrial fibrillation I48.2 Active 756046072 Problem Chronic obstructive pulmonary disease with acute lower respiratory infection J44.0 Active 599831357 Problem Other chronic pancreatitis K86.1 Active 390143868 Problem Stress incontinence of urine N39.3 Active 19108871 Problem Controlled type 2 diabetes mellitus without complication, without long -term current use of insulin E11.9 Active 998332091 Problem Unspecified psychosis F29 Active 53206686 Problem Xeroderma Q80.9 Active 49940100 Problem COPD (chronic obstructive pulmonary disease) J44.9 Active 53666282 Problem Dementia without behavioral disturbance, unspecified dementia type F03.90 Active 74115773 Problem Gastroparesis K31.84 Active 059479648 Problem Type 2 diabetes mellitus with diabetic neuropathy, without long-term current use of insulin E11.40 Active 45421682 Problem Osteoporosis M81.0 Active 14509628 Problem Atherosclerosis of [place] artery of both lower extremities with intermittent claudication I70.213 Active 505944109685511 Problem Hyperlipidemia E78.5 Active 58974098 Problem Diabetic polyneuropathy associated with type 2 diabetes mellitus E11.42 Active 55685227 Problem Essential tremor G25.0 Active 43243231 Problem 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.118 Active 7132529614351 Problem Generalized anxiety disorder F41.1 Active 925379452 Problem Gastroesophageal reflux disease, esophagitis presence not specified K21.9 Active 161959656 Problem Coronary artery disease involving white [place] coronary artery of white earth heart with other form of angina pectoris I25.118 Active 5206632553747 Problem Postconcussion syndrome F07.81 Active 45915981 Problem Chronic pain syndrome G89.4 Active 400653044 Problem Migraine without aura and without status migrainosus, not intractable G43.009 Active 032282463 Problem Paroxysmal atrial fibrillation I48.0 Active 964691770 Problem Migraine without aura and with status migrainosus, not intractable G43.001 Active 180163345 Problem Cervicalgia M54.2 Active 6066672729008 Problem Acute exacerbation of chronic obstructive pulmonary disease (COPD) J44.1 Active 553704108 Problem Major depressive disorder, recurrent episode, moderate F33.1 Active 705218889 Problem Crohn''s disease without complication, unspecified gastrointestinal tract location K50.90 Active 11353187 Problem Chronic fatigue R53.82 Active 21474440 Problem Bipolar affective disorder, currently depressed, moderate F31.32 Active 711277980 ALLERGIES No Information ENCOUNTERS Encounter Location Date Diagnosis [facility] [address] [facility] [id number] [id number] Nov, [facility] [address] [facility] [id number] [id number] Oct, [place] [address] [facility] [id number] [id number] [address] Sep, Encounter for well woman exam with routine gynecological exam Z01.419 ; Screening for STDs (sexually transmitted diseases) Z11.3 ; Screening breast examination Z12.31 and Overweight (BMI 25.0-29.9) E66.3 [facility] [address] [id number] [address] Sep, [facility] [id number] [place] [address] 53042- 4341 Sep, [facility] [id number] [place] [address] 47454- 0141 Sep, [facility] [id number] [place] [address] 73669- 9547 August, [facility] [id number] [place] [address] 37283- 4040 August, [facility] [id number] [place] [address] 73818- 4954 August, Type 2 diabetes mellitus with diabetic neuropathy, without long-term current use of insulin E11.40 and Sprain of right ankle, unspecified ligament, initial encounter S93.401A [facility] [id number] [place] [address] 94033- 4358 August, [facility] [id number] [place] [address] 85224- 7988 August, [facility] [id number] [place] [address] 80729- 5726 August, [facility] [id number] [place] [address] 96074- 7191 August, Gastroesophageal reflux disease, esophagitis presence not specified K21.9 [facility] [address] [address] 0253 August, [facility] [id number] [place] [address] 01365- 8372 August, [facility] [address] [id number], [place] [address] 0307 August, [facility] [id number] [place] [address] 15957- 0955 August, Type 2 diabetes mellitus with diabetic neuropathy, without long-term current use of insulin E11.40 and Elevated liver enzymes R74.8 [facility] [id number] [place] [address] 14471- 2623 Jul, [facility] [id number] [place] [address] 74366- 7843 Jul, Cough R05 [facility] [address] [id number] [place] [address] 27962- 9737 Jul, [facility] [id number] [place] [address] 96092- 7089 Jul, [facility] [address] [id number] [place] [address] 82803- 2612 Jul, Bipolar affective disorder, currently depressed, moderate F31.32 ; Vascular dementia without behavioral disturbance F01.50 and Generalized anxiety disorder F41.1 [facility] [id number] [place] [address] 04370- 6705 Jul, [facility] [id number] [place] [address] 10768- 9702 Jul, Type 2 diabetes mellitus with diabetic neuropathy, without long-term current use of insulin E11.40 and Elevated liver enzymes R74.8 [facility] [address] [place] [address] 92564- 7054 Jul, [facility] [id number] [place] [address] 45711- 6701 Jul, [facility] [id number] [place] [address] 55820- 9334 Jul, [facility] [address] [id number] [place] [address] 54507- 9542 Jul, Post-menopausal Z78.0 [facility] [id number] [place] [address] 58064- 5079 Jul, Stress incontinence of urine N39.3 [facility] [id number] [place] [address] 78322- 8808 Jul, [facility] [address] 43664- 1662 Jul, [facility] [id number] [place] [address] 04424- 6405 Jul, Stress incontinence of urine N39.3 and Cough R05 [facility] [address] [place] [id number] [place] [address] 14636- 8022 Jul, [facility] [id number] [place] [address] 84353- 9596 Jul, [facility] [address] [address] [id number] [place] [address] 59301- 8350 Jul, [facility] [address] 67526- 8874 Jul, Gastroesophageal reflux disease, esophagitis presence not specified K21.9 [facility] [id number] [place] [address] 60338- 1768 Jun, Diabetic polyneuropathy associated with type 2 diabetes mellitus E11.42 [place] [address] [id number] [place] [address] 98627- 2695 Jun, Diabetic polyneuropathy associated with type 2 diabetes mellitus E11.42 ; Coronary artery disease involving [place] coronary artery of white [place] heart with other form of angina pectoris I25.118 and Paroxysmal atrial fibrillation I48.0 [facility] [id number] [place] [address] 04008- 6496 Jun, [facility] [address] [id number] [place] [address] 64598- 1823 Jun, [facility] [address] [address] [id number] [place] [address] 63822- 7011 Jun, Gastroenteritis K52.9 [facility] [address] [place] [id number] [place] [address] 17847- 5096 Jun, Gastroenteritis K52.9 [facility] [address] [address] 6934 Jun, [facility] [address] [id number] [place] [address] 73221- 6049 Jun, [facility] [address] [place] [address] 65505- 7952 Jun, Sprain of right ankle, unspecified ligament, [...] complication, unspecified gastrointestinal tract location K50.[address] [facility] [address] [place] [address] 88173 -4544 17 Jun, 2017 Cough R05 and Chronic obstructive pulmonary disease with acute lower respiratory infection J44.0 [place] [address] [place] [address] 18603- 0849 16 Jun, 2017 [facility] [id number] [place] [address] 31786- 8792 15 Jun, 2017 Coughing R05 ; Unspecified atherosclerosis of [place] arteries of extremities, unspecified extremity I70.209 ; Type 2 diabetes mellitus with diabetic peripheral angiopathy without gangrene E11.51 ; Crohn''s disease without complication, unspecified gastrointestinal tract location K50.90 ; Other chronic pancreatitis K86.1 and Chronic atrial fibrillation I48.2 [facility] [address] [address] Jun, [facility] [id number] [place] [address] 06235- 1799 06 Jun, 2017 Bipolar affective disorder, currently depressed, moderate F31.32 ; Vascular dementia without behavioral disturbance F01.50 and Generalized anxiety disorder F41.1 [facility] [address] [id number] [place] [address] 77066- 1632 May, Generalized anxiety disorder F41.1 [facility] [id number] [place] [address] 56199- 5897 May, [facility] [id number] [place] [address] 34489- 5696 May, [facility] [id number] [place] [address] 41208- 8154 May, Coughing R05 [facility] [id number] [place] [address] 93927- 6957 May, [facility] [id number] [place] [address] 90033- 2522 May, Bipolar affective disorder, currently depressed, moderate F31.32 ; Vascular dementia without behavioral disturbance F01.50 and Generalized anxiety disorder F41.1 [facility] [id number] [place] [address] 63041- 5023 Apr, Generalized anxiety disorder F41.1 [facility] [id number] [place] [address] 87406- 1185 Apr, [facility] [id number] [place] [address] 77602- 8247 Apr, Vascular dementia without behavioral disturbance F01.50 ; Generalized anxiety disorder F41.1 and Bipolar affective disorder, currently depressed, moderate F31.32 [facility] [address] [id number] [place] [address] 43454- 3021 Apr, Generalized anxiety disorder F41.1 [facility] [id number] [place] [address] 84800 -0310 Apr, Cough R05 and Acute exacerbation of chronic obstructive pulmonary disease (COPD) J44.1 [facility] [id number] [place] [address] 80700- 3230 Apr, [facility] [id number] [place] [address] 21753 -7571 Mar, Cough R05 and Cigarette nicotine dependence without complication F17.210 [place] [address] [address] [id number] [place] [address] 16106- 2826 Mar, [place] [address] 83116- 6645 Feb, Generalized anxiety disorder F41.1 ; Major depressive disorder, recurrent episode, moderate F33.1 ; Vascular dementia without behavioral disturbance F01.50 and Unspecified psychosis F29 [place] [address] [id number] [place] [address] 37769- 4407 Feb, [place] [address] 25480- 8676 Feb, [place] [address] 96111- 6276 Feb, Generalized anxiety disorder F41.1 [place] [address] 44733- 9964 Feb, Generalized anxiety disorder F41.1 [place] [address] [place] [id number] [place] [address] 78705- 0519 Feb, Dizziness R42 ; Chronic fatigue R53.82 ; Postconcussion syndrome F07.81 ; Fall, initial encounter W19.XXXA and Disorientation R41.0 [place] [address] 17662- 5886 03 Feb, 2017 Postconcussion syndrome F07.81 ; Injury of head, initial encounter S09.90XA ; Fall, initial encounter W19.XXXA ; Disorientation R41.0 and Acute cystitis with hematuria N30.01 [place] [address] 22504- 0470 Jan, Gastroesophageal reflux disease, esophagitis presence not specified K21.9 ; Post-menopausal Z78.0 and Migraine without aura and without status migrainosus, not intractable G43.009 [place] [address] [place] [address]- 7365 Jan, [facility] [id number] [place] [address] 70833- 7126 Jan, Generalized anxiety disorder F41.1 ; Major depressive disorder, recurrent episode, moderate F33.1 ; Vascular dementia without behavioral disturbance F01.50 and Unspecified psychosis F29 [place] [address] [id number] [place] [address] 78164- 8337 Jan, Pneumonia of left lower lobe due to infectious organism J18.1 [place] [address] [id number] [place] [address] 83947- 8701 Jan, Migraine without aura and with status migrainosus, not intractable G43.[address] [facility] [id number] [place] [address] 51266 -8693 Jan, Migraine without aura and without status migrainosus, not intractable G43.009 [facility] [id number] [place] [address] 61391- 8478 Dec, Hematoma T14.8 [place] [address] [id number] [place] [address] 03503- 6177 Dec, [facility] [id number] [place] [address] 72901 -3559 Nov, Fatigue, unspecified type R53.83 [place] [address] [id number] [place] [address] 29890- 2284 Nov, Scabies B86 and Coronary artery disease involving white [place] coronary artery of white earth heart with other form of angina pectoris I25.118 [place] [id number] [place] [address] 73122- 9221 Nov, [place] [id number] [place] [address] 03815- 6902 Nov, [place] [id number] [place] [address] 16055- 4249 Oct, [place] [address] [place] [id number] [place] [address] 98245- 2776 Oct, Generalized anxiety disorder F41.1 and Major depressive disorder, recurrent episode, moderate F33.1 [facility] [id number] [place] [address] 58451- 5313 Oct, Cramp of both lower extremities R25.2 [facility] [address] [id number] [place] [address] 04436- 9404 Oct, Leg cramps R25.2 [facility] [address] [id number] [place] [address] 87559- 7031 Oct, Chronic pain syndrome G89.4 [place] [address] [id number] [place] [address] 12814- 9695 Oct, [place] [id number] [place] [address] 80054- 3866 Oct, [place] [id number] [place] [address] 76216- 9695 Oct, Routine gynecological examination Z01.419 and Screening for breast cancer Z12.31 [place] [id number] [place] [address] 59598- 1145 Sep, Diarrhea R19.7 [facility] [id number] [place] [address] 81016- 4345 Sep, Back pain M54.9 [facility] [id number] [place] [address] 88577- 2067 Sep, [facility] [id number] [place] [address] 89424- 8829 Sep, [facility] [id number] [place] [address] 46138 -4583 August, Xeroderma Q80.9 [facility] [id number] [place] [address] 69215- 7430 August, Dementia without behavioral disturbance, unspecified dementia type F03.90 [place] [id number] [place] [address] 61269- 7211 August, Chronic pain syndrome G89.4 [place] [id number] [place] [address] 82908- 9019 August, [place] [address] 39717- 4783 August, Hyperlipidemia E78.5 ; Other fatigue R53.83 and Other specified hypotension I95.89 [facility] [address] 69691 -0679 August, Dysuria R30.0 ; Other fatigue R53.83 and Other specified hypotension I95.89 [place] [address] 23760- 2192 August, [place] [address] 45231- 9685 Jul, Pain in left knee M25.562 and Gastroenteritis K52.9 [place] [address] 16092- 7241 Jul, [place] [address] 42895- 0673 Jul, Diarrhea R19.[address] [facility] [place] [id number] [place] [address] 15269 -6834 Jul, Spider bite, accidental or unintentional, initial encounter T63.301A [place] [address] 31061- 0794 Jul, Primary osteoarthritis of right knee M17.11 and Arthritis M19.90 [place] [address] 80012- 3444 Jul, Generalized anxiety disorder F41.1 and Major depressive disorder, recurrent episode, moderate F33.1 [place] [address] 13511- 9701 07 Jul, 2016 Type 2 diabetes mellitus with diabetic polyneuropathy E11.42 and Temporal headache R51 [facility] [address] 16783- 1007 Jul, Back pain M54.9 [facility] [address] 12636- 8386 Jul, [facility] [address] 48716- 2829 Jul, [facility] [address] 81260- 8149 30 Jun, 2016 Nausea R11.0 [facility] [place] [address] 16360 -7106 23 Jun, 2016 Acute suppurative otitis media of both ears without spontaneous rupture of tympanic membranes, recurrence not specified H66.003 and COPD exacerbation J44.1 [place] [address] 09580- 7031 Jun, Generalized anxiety disorder F41.1 [place] [address] 97983- 2146 16 Jun, [address] [facility] [place] [address] 31279 -0587 Jun, [facility] [address] 43657 -0139 Jun, Shortness of breath R06.02 and COPD exacerbation J44.1 [place] [address] 10032- 2545 10 Jun, 2016 Eczema, unspecified type L30.9 [place] [address] 27908- 4706 09 Jun, 2016 [place] [address] 29452- 3983 May, [place] [address] [place] [address]- 9078 May, Muscle cramping R25.2 [place] [address] 71175- 7925 May, [facility] [address] 48788- 0645 Apr, Diarrhea R19.7 [facility] [address] 61468- 4934 Apr, [place] [address] 96425- 0407 Apr, Chronic pain syndrome G89.4 [place] [address] 86760- 2225 Apr, Cramp of both lower extremities R25.2 and Vascular dementia without behavioral disturbance F01.50 [place] [address] 93605- 6898 Apr, Type 2 diabetes mellitus with diabetic polyneuropathy E11.42 and Cigarette nicotine dependence without complication F17.210 [place] [address] 41444- 2641 Mar, Generalized anxiety disorder F41.1 [place] [address] [place] [id number] [place] [address] 38724- 7996 Feb, Generalized anxiety disorder F41.1 and Major depressive disorder, recurrent episode, moderate F33.1 [place] [address] [id number] [place] [address] 68456- 3078 Feb, [facility] [address] [phone] Feb, Dysuria R30.0 and Acute cystitis with hematuria N30.01 [place] [id number] [place] [phone] Jan, [place] [address] [phone] Jan, [facility] [id number] [place] [phone] Jan, [facility] [id number] [place] [phone] Jan, [facility] [id number] [place] [place] [address] 28002 -6552 10 Jan, 2016 Wasp sting, accidental or unintentional, initial encounter T63.461A [facility] [id number] [place] [address] 11783- 7227 06 Jan, 2016 Encounter for immunization Z23 [place] [address] 21319- 6200 05 Jan, 2016 [place] [id number] [place] [address] 10599- 3119 Jan, [facility] [id number] [place] [address] 93191- 4511 28 Dec, 2015 Generalized anxiety disorder F41.1 and Major depressive disorder, recurrent episode, moderate F33.1 [place] [id number] [place] [address] 03252- 5777 21 Dec, 2015 Routine gynecological examination Z01.419 ; Postmenopausal Z78.0 ; Screening breast examination Z12.39 ; Osteopenia M85.80 and Breast cancer screening Z12.39 [facility] [id number] [place] [address] 61177- 5518 20 Dec, 2015 [facility] [id number] [place] [address] 85913- 9862 19 Dec, 2015 [place] [id number] [place] [address] 79233- 5491 16 Dec, 2015 [facility] [id number] [place] [address] 10176- 4515 16 Dec, 2015 [facility] [id number] [place] [address] 51660- 2428 14 Dec, 2015 [facility] [address] [address] 6708 Dec, [facility] [id number], [place] [address] 3944 Nov, [facility] [address], [place] [address] Nov, Cough R05 ; Other viral agents as the cause of diseases classified elsewhere B97.89 and Acute upper respiratory infection, unspecified J06.9 [facility] [address] [address] 4585 Nov, [facility] [id number], [place] [address]- 6918 Nov, [facility] [id number], [place] [address]- 8539 Nov, [facility] [id number], [place] [address]- 5637 Nov, [facility] [id number], [place] [address]- 3824 Nov, [facility] [id number], [place] [address]- 0200 Oct, [facility] [id number], [place] [address]- 3869 Oct, [facility] [id number], [place] [address]- 8636 Oct, [facility] [id number] [address]- 1605 Oct, Chronic pain syndrome G89.4 [facility] [id number], [place] [address]- 8779 Sep, Generalized anxiety disorder F41.1 and Major depressive disorder, recurrent episode, moderate F33.1 [facility] [id number], [place] [address] 9167 Sep, [facility] [id number], [place] [address]- 3163 Sep, [facility] [id number] [place] [address] 28099- 7779 14 Sep, 2015 Generalized anxiety disorder F41.1 [facility] [id number] [place] [address] 85121- 9741 13 Sep, 2015 Cramp of both lower extremities R25.2 and Cervicalgia M54.2 [facility] [id number] [place] [address] 45035- 5319 06 Sep, 2015 Generalized anxiety disorder F41.1 [place] [id number] [place] [address] 15051- 9413 Sep, [facility] [id number] [place] [address] 59695 -7404 August, Rash R21 ; Itching L29.9 and Allergic response, subsequent encounter T78.40XD [facility] [id number] [place] [address] 42118- 3308 August, Primary insomnia F51.[address] [facility] [id number] [place] [address] 56249 -9829 August, Rash R21 ; Itching L29.9 and Allergic response, initial encounter T78.40XA [facility] [id number] [place] [address] 94601- 0870 August, [facility] [id number] [place] [address] 66476- 3940 August, Cramp of both lower extremities R25.2 [facility] [id number] [place] [address] 88541- 2411 August, Back pain M54.9 [facility] [id number] [place] [address] 30856- 7520 August, [facility] [id number], [place] [address]- [address] August, [facility] [id number] [place] [address] 34176 -6868 August, Cramp of both lower extremities R25.2 [facility] [id number] [place] [address] 78320- 2970 August, [facility] [id number] [place] [address] 30606- 8485 August, Syncope R55 ; Paroxysmal atrial fibrillation I48.0 ; Dementia without behavioral disturbance, unspecified dementia type F03.90 and Chronic pain syndrome G89.4 [facility] [id number] [place] [address] 37524- 2435 August, Type 2 diabetes mellitus with diabetic polyneuropathy E11.42 and Syncope R55 [facility] [id number] [place] [address] 70002- 7303 Jul, [facility] [id number] [place] [address] 57262- 1464 Jul, [facility] [id number] [place] [address] 74665- 5637 Jul, [facility] [id number] [place] [address] 50432- 8834 Jul, [facility] [id number] [place] [address] 72465- 5890 Jul, [facility] [id number] [place] [address] 19087- 7822 Jul, UTI (urinary tract infection) N39.0 [facility] [id number] [place] [address] 21395- 0264 Jul, [facility] [id number] [place] [address] 73965- 6836 Jul, Major depressive disorder, recurrent episode, moderate F33.1 and Generalized anxiety disorder F41.1 [facility] [address], [place] [address]- 3173 14 Jul, 2015 Generalized anxiety disorder F41.1 [facility] [id number], [place] [address]- 1035 14 Jul, 2015 Diarrhea R19.7 [facility] [id number], [place] [address]- 6516 14 Jul, 2015 [facility] [id number] [place] [address] 44621- 3490 Jun, [facility] [id number] [place] [address] 44658- 5371 Jun, Eczema L30.9 [facility] [id number] [place] [address] 59823- 2858 Jun, [facility] [id number] [place] [address] 25290- 3842 Jun, COPD (chronic obstructive pulmonary disease) J44.9 [facility] [id number], [place] [address]- 3463 16 Jun, 2015 [facility] [id number], [place] [address]- 2231 Jun, Major depressive disorder, recurrent episode, moderate F33.1 and Generalized anxiety disorder F41.1 [facility] [address], [place] [address]- 7424 May, [facility] [id number], [place] [address]- 2943 May, UTI (urinary tract infection) N39.0 [facility] [id number], [place] [address]- 0977 17 May, 2015 [facility] [id number], [place] [address]- 9460 08 May, 2015 [facility] [id number], [place] [address]- 6145 May, [facility] [id number], [place] [address]- 8214 May, [facility] [id number] [place] [address] 90301- 4970 Apr, Major depressive disorder, recurrent episode, moderate F33.1 and Generalized anxiety disorder F41.1 [facility] [id number] [place] [address] 30928- 0745 Apr, COPD (chronic obstructive pulmonary disease) J44.9 [facility] [id number] [place] [address] 09865- 7468 Apr, [facility] [id number] [place] [address] 24790- 9309 Apr, Atrial flutter I48.92 [facility] [id number] [place] [address] 26540- 9204 Apr, [facility] [id number] [place] [address] 12072- 7856 Apr, [facility] [id number] [place] [address] 55410- 7670 Mar, [facility] [id number], [place] [address]- 1018 Mar, [facility] [id number] [place] [address] 62275- 5517 Mar, [facility] [id number] [place] [address] 90018- 2762 Mar, Hyperlipidemia E78.5 ; Type 2 diabetes mellitus with diabetic polyneuropathy E11.42 ; Major depressive disorder, recurrent episode, moderate F33.1 and Chronic pain syndrome G89.4 [facility] [id number], [place] [address]- 2364 Mar, [facility] [id number] [place] [address] 03044- 9519 Mar, [facility] [id number], [place] [address]- 6294 Mar, [facility] [address] [facility] [id number] [place] [address] 10320- 3190 Mar, [facility] [id number] [place] [address] 79389- 7051 Feb, COPD (chronic obstructive pulmonary disease) J44.9 and Back pain M54.9 [facility] [address] [facility] [id number] [place] [address] 77658- 4298 Feb, [facility] [id number] [place] [address] 28594- 5905 Feb, [facility] [id number] [place] [address] 90147- 6907 Feb, [facility] [id number] [place] [address] 16597- 6774 Feb, [facility] [id number] [place] [address] 89223- 5798 Feb, [facility] [id number] [place] [address] 70853- 0629 Feb, [facility] [id number] [place] [address] 43144- 1168 Feb, [facility] [id number] [place] [address] 75930- 5288 Feb, [facility] [id number] [place] [address] 69511- 8835 Feb, Diabetes E11.9 ; Back pain M54.9 and COPD (chronic obstructive pulmonary disease) J44.9 [facility] [id number], [place] [address]- 8929 Jan, [facility] [id number], [place] [address]- 4975 Jan, Major depression, recurrent F33.9 and Generalized anxiety disorder F41.1 [facility] [id number] [place] [address] 38520- 6195 Jan, Chronic pain G89.29 [facility] [id number] [place] [address] 51564- 6629 Jan, [facility] [id number] [place] [address] 17479- 5902 Jan, [facility] [id number] [place] [address] 44645- 8195 Jan, [facility] [id number] [place] [address] 46686- 3268 Jan, [facility] [id number] [place] [address] 33222- 9723 Jan, Nicotine dependence F17.200 [facility] [address] 52045- 7173 Jan, Nicotine dependence F17.200 and Back pain M54.9 [facility] [id number] [place] [address] 95064- 0840 Jan, [facility] [id number] [place] [address] 72416- 1866 28 Dec, 2014 [facility] [id number] [place] [address] 05296- 8324 25 Dec, 2014 Anxiety, generalized 300.02 and Major depression, recurrent 296.30 [facility] [id number] [place] [address] 46502- 2855 24 Sep, 2014 [facility] [id number] [place] [address] 24450- 7480 21 Dec, 2014 [facility] [id number] [place] [address] 24118- 1047 17 Dec, 2014 [facility] [id number] [place] [address] 86396- 8757 15 Dec, 2014 [facility] [address], [place] [address]- 1212 14 Dec, 2014 [facility] [id number] [place] [address] 05848 2542 11 Dec, 2014 [facility] [id number], [place] [address]- 2542 10 Dec, 2014 [facility] [id number] [place] [address] 52191 2544 08 Dec, 2014 Skin tear 879.8 [facility] [id number] [place] [address] 70305 2542 08 Dec, 2014 Routine gynecological examination V72.31 ; Breast cancer screening V76.10 and Family history of breast cancer in first degree relative V16.3 [facility] [id number] [place] [address] 61832- 8099 Dec, [facility] [id number] [place] [address] 17836- 2118 Dec, [facility] [id number] [place] [address] 01128- 6814 Nov, [facility] [id number] [place] [address] 45199- 6681 Nov, [facility] [id number], [place] [address]- 9150 Nov, Poor balance 781.99 and Vascular dementia, uncomplicated 290.40 [facility] [id number], [place] [address]- 4635 Nov, [facility] [id number] [place] [address] 49995- 5030 Nov, Major depression, recurrent 296.30 and Anxiety, generalized 300.02 [facility] [id number], [place] [address]- 2543 Nov, [facility] [id number] [place] [address] 99447- 2095 Nov, [facility] [id number], [place] [address]- 2459 Nov, [facility] [id number] [place] [address] 61702- 5499 Nov, [facility] [id number], [place] [address]- 1722 Nov, Vascular dementia, uncomplicated 290.40 and Lumbago 724.2 [facility] [id number] [place] [address] 07645- 6092 Nov, [facility] [id number] [place] [address] 42863- 7107 Nov, [facility] [id number] [place] [address] 62855- 8140 Nov, [facility] [id number] [place] [address] 83709- 0474 Oct, [facility] [id number] [place] [address] 02220- 3226 Oct, [facility] [id number] [place] [address] 77138- 7502 Oct, [facility] [id number], [place] [address]- 4756 Oct, COPD (chronic obstructive pulmonary disease) 496 and Hyperlipidemia 272.4 [facility] [id number], [place] [address]- 9134 Oct, Major depression, recurrent 296.30 and Anxiety, generalized 300.02 [facility] [id number], [place] [address]- 2098 Oct, [facility] [id number], [place] [address]- 5975 Oct, [facility] [id number], [place] [address]- 6073 Oct, [facility] [id number], [place] [address]- 8749 Sep, Lumbago 724.2 and Anxiety state, unspecified 300.00 [facility] [id number], [place] [address]- 7485 Sep, [facility] [id number], [place] [address]- 0260 Sep, [facility] [id number] [place] [address] 23256- 3571 August, [facility] [id number] [place] [address] 21306- 4707 August, Major depression, recurrent 296.30 ; Anxiety, generalized 300.02 and No condition on [place] V71.09 [facility] [id number], [place] [address]- 7538 August, [facility] [id number] [place] [address] 09101- 1357 August, [facility] [id number], [place] [address]- 2742 Jul, [facility] [id number] [address]- 0457 Jul, [facility] [id number], [place] [address]- 0227 Jul, [facility] [id number] [address]- 2356 Jun, [facility] [id number] [address] Jun, [facility] [id number] [address] Jun, [facility] [id number] [address] Jun, [facility] [id number] [place] [address] 26 Jun, 2014 [facility] [place] [facility] [address] [id number] [place] [address] Jun, 2014 [facility] [place] [facility] [address] [id number] [place] [address] 23 Jun, 2014 [facility] [place] [facility] [address] [id number] [place] [address] 17 Jun, 2014 [facility] [place] [facility] [address] [id number] [place] [address] Jun, 2014 [facility] [place] [facility] [address] [id number] [place] [address] Jun, [facility] [place] [facility] [address] [id number] [place] [address] Jun, 2014 [facility] [place] [facility] [address] [id number] [place] [address] 10 Jun, 2014 [facility] [place] [facility] [address] [id number] [place] [address] Jun, [facility] [place] [facility] [address] [id number] [place] [address] Jun, 2014 [facility] [place] [facility] [address] [id number] [place] [address] Jun, [facility] [place] [facility] [address] [id number] [place] [address] Jun, [facility] [place] [facility] [address] [id number] [place] [address] May, [facility] [place] [facility] [address] [id number] [place] [address] May, 2014 [facility] [place] [facility] [address] [id number] [place] [address]- [address] May, [facility] [place] [facility] [address] [id number] [place] [address] May, [facility] [place] [facility] [address] [id number] [place] [address]- [address] May, 2014 [facility] [place] [facility] [address] [id number] [place] [address] May, 2014 [facility] [place] [facility] [address] [id number] [place] [address]- [address] May, 2014 [facility] [place] [facility] [address] [id number] [place] [address]- [address] May, 2014 [facility] [place] [facility] [address] [id number] [place] [address]- [address] May, 2014 [facility] [place] [facility] [address] [id number] [place] [address]- [address] May, 2014 [facility] [place] [facility] [address] [id number] [place] [address] May, 2014 [facility] [place] [facility] [address] [id number] [place] [address] May, 2014 [facility] [place] [facility] [address] [id number] [place] [address] May, [facility] [place] [facility] [address] [id number] [place] [address]- [address] May, [facility] [place] [facility] [address] [id number] [place] [address] Apr, [facility] [place] [facility] [address] [id number] [place] [address] Apr, [facility] [place] [facility] [address] [id number] [place] [address] Apr, [facility] [place] [facility] [address] [id number] [place] [address]- [address] Apr, [facility] [place] [facility] [address] [facility] [id number] [place] [address]- [address] Apr, [facility] [place] [facility] [address] [id number] [place] [address]- [address] Apr, [facility] [address] [id number] [place] [address] Apr, [facility] [place] [facility] [address] [id number] [place] [address]- [address] Apr, [facility] [address] [id number] [place] [address]- 94[address] Apr, [facility] [place] [facility] [address] [id number] [place] [address]- [address] Apr, [facility] [facility] [address] [id number] [place] [address] Apr, [facility] [address] [id number] [place] [address] 72[address] Apr, [facility] [address] [id number] [place] [address] 7281 Mar, [facility] [address] [id number] [place] [address] 1184 31 Mar, 2014 [facility] [address] [id number] [place] [address] 3685 30 Mar, 2014 [facility] [address] [id number] [place] [address] 1103 30 Mar, 2014 [facility] [place] [facility] [address] [id number] [place] [address] 3498 29 Mar, 2014 [facility] [place] [facility] [address] [id number] [place] [address] 8813 29 Mar, 2014 [facility] [place] [facility] [address] [id number] [place] [address] 0769 Mar, [facility] [place] [facility] [address] [id number] [place] [address] 4806 Mar, [facility] [place] [facility] [address] [id number] [place] [address] 4736 Mar, [facility] [place] [facility] [address] [id number] [place] [address]- 1024 15 Mar, 2014 [facility] [place] [facility] [address] [id number] [place] [address] 6606 Mar, [facility] [place] [facility] [address] [id number] [place] [address]- 2138 Mar, [facility] [place] [facility] [address] [id number] [place] [address]- 0890 Mar, [facility] [place] [facility] [address] [id number] [place] [address]- 0158 Mar, [facility] [place] [facility] [address] [id number] [place] [address]- 7592 Mar, [facility] [place] [facility] [address] [id number] [place] [address]- 6974 Mar, [facility] [place] [facility] [address] [id number] [place] [address]- 9784 Mar, [facility] [place] [facility] [address] [id number] [place] [address]- 0634 Mar, [facility] [place] [facility] [address] [id number] [place] [address]- 6512 Mar, [facility] [place] [facility] [address] [id number] [place] [address]- 6968 Mar, [facility] [place] [facility] [address] [id number] [place] [address]- 2385 Feb, [facility] [place] [facility] [address] [id number] [place] [address]- 2254 Feb, [facility] [place] [facility] [address] [id number] [place] [address]- 7738 Feb, [facility] [place] [facility] [address] [id number] [place] [address] Feb, [facility] [place] [facility] [address] [id number], [place] [address] 8948 Feb, [facility] [place] [facility] [address] [id number] [place] [address]- 8608 Feb, [facility] [place] [facility] [address] [id number] [place] [address]- 2580 Feb, [facility] [place] [facility] [address] [id number] [place] [address]- 6517 Feb, [facility] [place] [facility] [address] [id number] [place] [address]- 0709 Feb, [facility] [place] [facility] [address] [id number] [place] [address]- 4387 Feb, [facility] [place] [facility] [address] [id number] [place] [address]- 1690 Feb, [facility] [place] [facility] [address] [id number] [place] [address]- 0373 Feb, [facility] [place] [facility] [address] [id number][place] [address]- 6185 Feb, [facility] [place] [facility] [address] [id number] [place] [address]- 5571 Feb, [facility] [place] [facility] [address] [id number] [place] [address]- 7441 Feb, [facility] [place] [facility] [address] [id number] [place] [address]- 4952 Feb, [facility] [place] [facility] [address] [id number], [place] [address] 8205 Feb, [facility] [place] [facility] [address] [id number], [place] [address]- 8750 Jan, [facility] [place] [facility] [address] [id number], [place] [address]- 4451 Jan, [facility] [place] [facility] [address] [id number], [place] [address]- 3719 Jan, [facility] [place] [facility] [address] [id number] [place] [address]- 0464 Jan, [facility] [place] [facility] [address] [id number] [place] [address]- 7923 Jan, [facility] [place] [facility] [address] [id number] [place] Jan, [facility] [place] [facility] [address] [id number] [place] [address]- 7083 Jan, [facility] [place] [facility] [address] [id number] [place] [address]- 7772 Jan, [facility] [place] [facility] [address] [id number] [place] [address]- 1093 Jan, [facility] [place] [facility] [address] [id number] [place] [address]- 1439 Jan, [facility] [place] [facility] [address] [id number] [place] [address]- 0841 Jan, [facility] [place] [facility] [address] [id number] [place] [address]- 1129 Dec, [facility] [place] [facility] [address] [id number] [place] [address]- 2480 Dec, [facility] [place] [facility] [address] [id number] [place] [address]- 8965 Nov, [facility] [place] [facility] [address] [id number] [place] [address]- 2947 Nov, [facility] [place] [facility] [address] [id number] [place] [address]- 2864 Nov, [facility] [place] [facility] [address] [id number] [place] [address]- 0136 Nov, [facility] [place] [facility] [address] [id number] [place] Nov, [facility] [place] [facility] [address] [id number] [place] [address]- 5334 Nov, [facility] [place] [facility] [address] [id number] [place] [address]- 3641 Nov, [facility] [place] [facility] [address] [id number] [place] [address]- 5251 Oct, [facility] [place] [facility] [address] [id number] [place] [address]- 5636 Oct, [facility] [place] [facility] [address] [id number] [place] [address]- 4986 Oct, [facility] [place] [facility] [address] [id number] [place] [address]- 6324 Oct, [facility] [place] [facility] [address] [id number] [place] [address]- 9359 Sep, [facility] [place] [facility] [address] [id number] [place] [address]- 9843 Sep, [facility] [place] [facility] [address] [id number] [place] [address]- 7796 Sep, [facility] [place] [facility] [address] [id number] [place] [address]- 4977 Sep, [facility] [place] [facility] [address] [id number] [place] [address]- 9131 Sep, [facility] [place] [facility] [address] [id number], [place] [address]- 0226 Sep, [facility] [place] [facility] [address] [id number], [place] [address]- 3045 Sep, [facility] [place] [facility] [address] [id number] [place] [address]- 3533 Sep, [facility] [place] [facility] [address] [id number] [place] [address]- 8735 Sep, [facility] [place] [facility] [address] [id number] [place] [address]- 3236 Sep, [facility] [place] [facility] [address] [id number] [place] [address]- 4017 Sep, [facility] [place] [facility] [address] [id number] [place] [address]- 3070 Sep, [facility] [place] [facility] [address] [id number] [place] [address]- 1349 Sep, [facility] [place] [facility] [address] [id number] [place] [address]- 5179 Sep, [facility] [place] [facility] [address] [id number] [place] [address]- 0376 August, [facility] [place] [facility] [address] [id number] [place] [address]- 4478 August, [facility] [place] [facility] [address] [id number] [place] [address]- 1857 August, [facility] [place] [facility] [address] [id number] [place] [address]- 6726 August, [facility] [place] [facility] [address] [id number] [place] [address]- 9718 August, [facility] [place] [facility] [address] [id number] [place] [address]- 7774 August, [facility] [address] [id number] [place] [address]- 1388 August, [facility] [place] [facility] [address] [id number] [place] [address]- 6053 August, [facility] [place] [facility] [address] [id number] [place] [address]- 3090 August, [facility] [place] [facility] [address] [id number] [place] [address]- 7272 August, [facility] [place] [facility] [address] [id number] [place] [address]- 1146 August, [facility] [place] [facility] [address] [id number] [place] [address]- 7387 August, [facility] [place] [facility] [address] [id number] [place] [address]- 1557 August, [facility] [place] [facility] [address] [id number] [place] [address]- 4426 August, [facility] [place] [facility] [address] [id number] [place] [address]- 1382 August, [facility] [place] [facility] [address] [id number] [place] [address]- 0564 August, [facility] [address] [id number] [place] [address]- 0019 August, [facility] [place] [facility] [address] [id number] [place] [address]- 1699 August, [facility] [address] [id number] [place] [address]- 0704 August, [facility] [address] [id number] [place] [address]- 2175 Jul, [facility] [place] [facility] [address] [id number] [place] [address]- 3744 Jul, [facility] [place] [facility] [address] [id number] [place] [address]- 3612 Jul, [facility] [place] [facility] [address] [id number] [place] [address]- 6471 Jul, [facility] [place] [facility] [address] [id number] [place] [address]- 2801 Jun, [facility] [place] [facility] [address] [id number] [place] [address]- 9904 Jun, [facility] [place] [facility] [address] [id number] [place] [address]- 3231 Jun, [facility] [place] [facility] [address] [id number] [place] [address]- 8003 Jun, [facility] [place] [facility] [address] [id number] [place] [address]- 6690 17 Jun, 2013 [facility] [place] [facility] [address] [id number] [place] [address]- 9463 17 Jun, 2013 [facility] [place] [facility] [address] [id number] [place] [address]- 7813 Jun, [facility] [place] [facility] [address] [facility] [id number] [place] [address]- 8345 Jun, [facility] [place] [facility] [address] [id number] [place] [address]- 9280 Jun, [facility] [place] [facility] [address] [id number] [place] [address]- 6072 Jun, [facility] [place] [facility] [address] [facility] [id number] [place] [address]- 2075 May, [facility] [place] [facility] [address] [facility] [id number] [place] [address]- 8688 May, [facility] [place] [facility] [address] [facility] [id number] [place] [address]- 6292 May, [facility] [place] [facility] [address] [facility] [id number] [place] [address]- 9633 May, [facility] [place] [facility] [address] [facility] [id number] [place] [address]- 5488 May, [facility] [place] [facility] [address] [facility] [id number] [place] [address]- 0544 May, [facility] [place] [facility] [address] [facility] [id number] [place] [address]- 8361 20 May, 2013 [facility] [place] [facility] [address] [facility] [id number] [place] [address]- 2763 May, [facility] [place] [facility] [address] [facility] [id number] [place] [address]- 4923 May, [facility] [place] [facility] [address] [facility] [id number] [place] [address]- 6055 18 May, 2013 [facility] [place] [facility] [address] [id number] [place] [address]- 4873 18 May, 2013 [facility] [place] [facility] [address] [id number] [place] [address]- 7636 17 May, 2013 [facility] [place] [facility] [address] [id number] [place] [address]- 2576 May, [facility] [place] [facility] [address] [id number] [place] [address]- 5430 May, [facility] [place] [facility] [address] [id number] [place] [address]- 9131 May, [facility] [place] [facility] [address] [id number] [place] [address]- 4525 May, [facility] [place] [facility] [address] [id number] [place] [address]- 3114 May, [facility] [place] [facility] [address] [id number] [place] [address]- 7986 Apr, [facility] [place] [facility] [address] [id number] [place] [address]- 1870 Apr, [facility] [place] [facility] [address] [id number] [place] [address]- 2704 Apr, [facility] [place] [facility] [address] [id number] [place] [address]- 3290 Apr, [facility] [place] [facility] [address] [id number], [place] [address]- 1610 Apr, [facility] [place] [facility] [address] [id number] [place] [address]- 2278 Apr, [facility] [place] [facility] [address] [id number] [place] [address]- 4003 Apr, [facility] [place] [facility] [address] [id number] [place] [address]- 1609 Mar, [facility] [place] [facility] [address] [id number] [place] [address]- 0424 Mar, [facility] [address] [id number] [place] [address]- 5786 Mar, [facility] [address] [id number] [place]676 Mar, [facility] [address] [id number] [place] [address]- 9561 Mar, [facility] [address] [id number] [place] [address]- 7824 Mar, [facility] [address] [id number] [place] [address]- 4590 Mar, [facility] [address] [id number] [place] [address]- 2304 Mar, [facility] [address] [id number] [place] [address]- 0332 Mar, [facility] [address] [id number] [place] [address]- 2930 Mar, [facility] [address] [id number] [place] [address]- 4349 Mar, [facility] [address] [id number] [place] [address]- 3674 Feb, [facility] [address] [id number] [place] [address]- 5423 Feb, [facility] [address] [id number] [place] [address]- 4690 Feb, [facility] [address] [id number] [place] [address]- 0682 Feb, [facility] [address] [id number] [place] [address]- 5525 Feb, [facility] [address] [id number] [place] [address]- 5023 Feb, [facility] [place] [facility] [address] [id number] [place] [address]- 0830 15 Feb, 2013 [facility] [place] [facility] [address] [id number] [place] [address]- 6718 14 Feb, 2013 [facility] [place] [facility] [address] [id number] [place] [address]- 8775 14 Feb, 2013 [facility] [place] [facility] [address] [id number] [place] [address]- 4609 Feb, [facility] [place] [facility] [address] [id number] [place] [address]- 8122 13 Feb, 2013 [facility] [place] [facility] [address] [id number] [place] [address]- 0650 Feb, [facility] [place] [facility] [address] [id number] [place] [address]- 6685 Feb, [facility] [place] [facility] [address] [id number] [place] [address]- 7122 Feb, [facility] [place] [facility] [address] [id number] [place] [address]- 1091 Feb, [facility] [place] [facility] [address] [id number], [place] [address]- 5546 Feb, [facility] [place] [facility] [address] [id number], [place] [address]- 3030 Jan, [facility] [place] [facility] [address] [id number], [place] [address]- 6680 Jan, [facility] [place] [facility] [address] [id number], [place] [address]- 1976 Jan, [facility] [place] [facility] [address] [id number], [place] [address]- 5821 Jan, [facility] [place] [facility] [address] [id number], [place] [address]- 3539 Jan, [facility] [place] [facility] [address] [id number], [place] [address]- 9013 Jan, [facility] [place] [facility] [address] [id number] [place] [address]- 2786 Jan, [facility] [place] [facility] [address] [id number] [place] [address]- 2296 Jan, [facility] [place] [facility] [address] [id number] [place] [address]- 8795 Jan, [facility] [place] [facility] [address] [id number] [place] [address]- 4948 27 Dec, 2012 [facility] [place] [facility] [address] [id number] [place] [address]- 6201 Dec, [facility] [place] [facility] [address] [id number] [place] [address]- 8360 Dec, [facility] [place] [facility] [address] [id number] [place] [address]- 4893 Dec, [facility] [place] [facility] [address] [id number] [place] [address]- 2150 Dec, [facility] [place] [facility] [address] [id number] [place] [address]- 2345 Dec, [facility] [place] [facility] [address] [id number] [place] [address]- 2521 Nov, [facility] [place] [facility] [address] [id number] [place] [address]- 8646 Nov, [facility] [place] [facility] [address] [id number] [place] [address]- 1785 Nov, [facility] [place] [facility] [address] [id number] [place] [address]- 9024 Nov, [facility] [place] [facility] [address] [id number] [place] [address]- 7753 Nov, [facility] [place] [facility] [address] [id number] [place] [address]- 2941 Nov, [facility] [place] [facility] [address] [id number] [place] [address]- 4637 15 Nov, 2012 [facility] [place] [facility] [address] [id number] [place] [address]- 0234 15 Nov, 2012 [facility] [place] [facility] [address] [id number] [place] [address]- 6767 14 Nov, 2012 [facility] [place] [facility] [address] [id number] [place] [address]- 5440 Nov, [facility] [place] [facility] [address] [id number] [place] [address] Oct, [facility] [place] [facility] [address] [id number] [place] [address] Oct, [facility] [place] [facility] [address] [id number] [place] [address] Oct, [facility] [place] [facility] [address] [id number] [place] [address] Oct, [facility] [place] [facility] [address] [id number] [place] [address] Oct, [facility] [place] [facility] [address] [id number] [place] [address] 2011 Oct, [facility] [place] [facility] [address] [id number] [place] [address] Oct, [facility] [place] [facility] [address] [id number] [place] [address] Oct, [facility] [place] [facility] [address] [id number] [place] [address] Sep, [facility] [place] [facility] [address] [id number] [place] [address] Sep, [facility] [place] [facility] [address] [id number] [place] [address] Sep, [facility] [place] [facility] [address] [id number] [place] [address] Sep, [facility] [address] [id number] [place] [address] Sep, [facility] [place] [facility] [address] [id number] [place] [address] Sep, [facility] [address] [id number] [place] [address] 79[address] Sep, [facility] [place] [facility] [address] [id number] [place] [address] 56[address] Sep, [facility] [address] [id number] [place] [address] August, [facility] [address] [id number] [place] [address] 77[address] August, [facility] [address] [id number] [place] [address] August, [facility] [address] [id number] [place] [address] August, [facility] [address] [id number] [place] [address] August, [facility] [address] [id number] [place] [address] 235[address] Jul, [facility] [place] [facility] [address] [id number] [place] [address] 47[address] Jul, [facility] [place] [facility] [address] [id number], [place] [address] Jul, [facility] [place] [facility] [address] [id number] [place] [address] Jul, [facility] [place] [facility] [address] [id number] [place] [address]461 Jul, [facility] [place] [facility] [address] [id number] [place] [address]- [address] Jun, [facility] [place] [facility] [address] [id number] [place] [address] 8697 18 Jun, 2012 [facility] [address] [id number] [place] [address] 15 Jun, 2012 [facility] [place] [facility] [address] [id number] [place] [address]- 2159 14 Jun, 2012 [facility] [address] [id number] [place] [address] 12 Jun, 2012 [facility] [place] [facility] [address] [id number] [place] [address] 4317 08 Jun, 2012 [facility] [address] [id number] [place] [address] 08 Jun, 2012 [facility] [place] [facility] [address] [id number] [place] [address]- 9429 02 Jun, 2012 [facility] [address] [id number] [place] [address] 9970 Jun, [facility] [address] [id number] [place] [address]- [address]10 27 May, 2012 [facility] [address] [id number] [place] [address] 3095 25 May, 2012 [facility] [address] [id number] [place] [address]- [address] 20 May, 2012 [facility] [place] [facility] [address] [id number] [place] [address]- 3689 12 May, 2012 [facility] [place] [facility] [address] [id number] [place] [address]- 5766 15 Apr, 2012 [facility] [place] [facility] [address] [id number] [place] [address]- 4382 09 Apr, 2012 [facility] [place] [facility] [address] [id number] [place] [address]- 2796 08 Apr, 2012 [facility] [place] [facility] [address] [id number] [place] [address]- [address] Apr, [facility] [address] [id number] [place] [address] Apr, [facility] [address] [id number] [place] [address]- 8785 Apr, [facility] [address] [id number] [place] [address]- 6852 Apr, [facility] [address] [id number] [place] [address] Mar, [facility] [place] [facility] [id number] Mar, [facility] [address] [id number] [place] [address]- 6774 Mar, [facility] [address] [id number] [place] [address]- 7544 Mar, [facility] [address] [id number] [place] [address]- 0657 Mar, [facility] [address] [id number] [place] [address]- 0735 Mar, [facility] [address] [id number] [place] [address]- 6557 Mar, [facility] [address] [id number] [place] [address] Mar, [facility] [address] [id number] [place] [address]- 30[address] Mar, [facility] [address] [id number] [place] [address]- 1452 Mar, [facility] [address] [id number] [place] [address]- 0016 Mar, [facility] [address] [id number] [place] [address]- 2966 Mar, [facility] [address] [id number] [place] [address]- 2[address] Mar, [facility] [place] [facility] [address] [id number] [place] [address]- 1841 Mar, [facility] [place] [facility] [address] [id number] [place] [address]- 0365 Mar, [facility] [place] [facility] [address] [id number] [place] [address]- 4744 Mar, [facility] [place] [facility] [address] [id number] [place] [address]- 5856 Mar, [facility] [place] [facility] [address] [id number] [place] [address]- 7011 Feb, [facility] [place] [facility] [address] [id number] [place] [address]- 6909 Feb, [facility] [place] [facility] [address] [id number] [place] [address]- 1865 Feb, [facility] [place] [facility] [address] [id number] [place] [address]- 3759 Feb, [facility] [place] [facility] [address] [id number] [place] [address]- 5578 Feb, [facility] [place] [facility] [address] [id number] [place] [address]- 9173 Feb, [facility] [place] [facility] [address] [id number], [place] [address] Feb, [facility] [place] [facility] [address] [id number], [place] [address] Feb, [facility] [place] [facility] [address] [id number] [place] [address] Feb, [facility] [place] [facility] [address] [id number], [place] [address] Feb, [facility] [place] [facility] [address] [id number] [place] [address] Feb, [facility] [place] [facility] [address] [id number] [place] [address] 14[address] Feb, [facility] [place] [facility] [address] [id number] [place] [address] 8695 Feb, [facility] [place] [facility] [address] [id number] [place] [address] 7426 Feb, [facility] [place] [facility] [address] [id number] [place] [address]- 56[address] Feb, [facility] [place] [facility] [address] [id number] [place] [address]- 1436 Feb, [facility] [place] [facility] [address] [id number] [place] [address]- 6668 Jan, [facility] [place] [facility] [address] [id number] [place] [address] Jan, [facility] [place] [facility] [address] [id number] [place] [address]- 0259 Jan, [facility] [place] [facility] [address] [id number] [place] [address]- 67[address] Jan, [facility] [place] [facility] [address] [id number] [place] [address]- 0470 Jan, [facility] [place] [facility] [address] [facility] [id number] [place] [address]- 5[address] Jan, [facility] [place] [facility] [address] [id number] [place] [address]- 2789 Jan, [facility] [place] [facility] [address] [id number], [place] [address]9 Jan, [facility] [place] [facility] [address] [id number] [place] [address]- 5835 Jan, [facility] [place] [facility] [address] [facility] [id number] [place] [address]- 6750 Jan, [facility] [place] [facility] [address] [id number], [place] [address] Jan, [facility] [place] [facility] [address] [id number] [place] [address]- 8668 Jan, [facility] [place] [facility] [address] [id number] [place] [address]- 8636 Jan, [facility] [place] [facility] [address] [id number] [place] [address]- 8488 Jan, [facility] [place] [facility] [address] [id number] [place] [address]- 9106 08 Jan, 2012 [facility] [place] [facility] [address] [id number] [place] [address]- 6670 05 Jan, 2012 [facility] [place] [facility] [address] [id number] [place] [address]- 3762 04 Jan, 2012 [facility] [place] [facility] [address] [id number] [place] [address]- 2745 21 Dec, 2011 [facility] [place] [facility] [address] [id number] [place] [address]- 7021 20 Dec, 2011 [facility] [place] [facility] [address] [id number] [place] [address]- 0699 18 Dec, 2011 [facility] [place] [facility] [address] [id number] [place] [address]- 3504 18 Dec, 2011 [facility] [place] [facility] [address] [id number] [place] [address]- 7728 10 Dec, 2011 [facility] [place] [facility] [address] [id number] [place] [address]- 0313 10 Dec, 2011 [facility] [place] [facility] [address] [id number] [place] [address]- 6235 10 Dec, 2011 [facility] [place] [facility] [address] [id number] [place] [address]- 6200 07 Dec, 2011 [facility] [place] [facility] [address] [id number] [place] [address]- 3242 30 Nov, 2011 [facility] [place] [facility] [address] [id number] [place] [address]- 2985 Nov, [facility] [place] [facility] [address] [id number] [place] [address]- 8199 Nov, [facility] [place] [facility] [address] [id number] [place] [address]- 6616 Nov, [facility] [place] [facility] [address] [id number] [place] [address]- 7166 Nov, [facility] [place] [facility] [address] [id number] [place] [address]- 6104 Nov, [facility] [place] [facility] [address] [id number] [place] [address]- 7105 Oct, [facility] [place] [facility] [address] [id number] [place] [address]- 1189 Oct, [facility] [place] [facility] [address] [id number] [place] [address]- 2045 Oct, [facility] [place] [facility] [address] [id number] [place] [address]- 4177 Oct, [facility] [place] [facility] [address] [id number] [place] [address]- 2966 Oct, [facility] [place] [facility] [address] [id number] [place] [address]- 5108 Oct, [facility] [place] [facility] [address] [id number] [place] [address]- 5866 Oct, [facility] [place] [facility] [address] [id number] [place] [address]- 3999 Sep, [facility] [place] [facility] [address] [id number] [place] [address]- 3439 Sep, [facility] [place] [facility] [address] [id number] [place] [address]- 0871 Sep, [facility] [place] [facility] [address] [id number] [place] [address]- 6270 Sep, [facility] [place] [facility] [address] [id number] [place] [address]- 7834 19 Sep, 2011 [facility] [address] [id number] [place] [address]- 7651 15 Sep, 2011 [facility] [address] [id number] [place] [address]- 5769 14 Sep, 2011 [facility] [address] [id number] [place] [address]- 5[address] Sep, [facility] [address] [id number] [place] [address]- 9900 05 Sep, 2011 [facility] [address] [id number] [place] [address]- 6029 04 Sep, 2011 [facility] [address] [id number] [place] [address]- 6989 August, [facility] [address] [id number] [place] [address] 8151 August, [facility] [address] [id number] [place] [address]- 8935 August, [facility] [address] [id number] [place] [address]- 3542 August, [facility] [address] [id number] [place] [address] 9413 August, [facility] [address] [id number] [place] [address]- 9244 Jul, [facility] [address] [id number] [place] [address]- 1731 Jul, [facility] [place] [facility] [address] [id number] [place] [address]- 9607 25 Jul, 2011 [facility] [place] [facility] [address] [id number] [place] [address] 4024 17 Jul, 2011 [facility] [address] [id number] [place] [address] 1986 Jul, [facility] [address] [id number] [place] [address]- 7233 Jul, [facility] [place] [facility] [address] [id number] [place] [address]- 7166 Jul, [facility] [place] [facility] [address] [id number] [place] [address]- 2206 Jun, [facility] [place] [facility] [address] [id number] [place] [address]- 4276 Jun, [facility] [place] [facility] [address] [id number] [place] [address]- 2620 Jun, [facility] [place] [facility] [address] [id number] [place] [address]- 3786 Jun, [facility] [place] [facility] [address] [facility] [id number] [place] [address]- 8526 Jun, [facility] [place] [facility] [address] [id number] [place] [address]- 3436 May, [facility] [place] [facility] [address] [id number] [place] [address]- 8781 May, [facility] [place] [facility] [address] [facility] [id number] [place] [address]- 1076 May, [facility] [place] [facility] [address] [id number] [place] [address]- 3806 May, [facility] [place] [facility] [address] [id number], [place] [address]- 8186 May, [facility] [place] [facility] [address] [id number] [place] [address]- 5906 May, [facility] [place] [facility] [address] [id number] [place] [address]- 6336 Apr, [facility] [place] [facility] [address] [id number] [place] [address]- 0386 Mar, [facility] [place] [facility] [address] [id number] [place] [address]- 5075 11 Feb, 2011 [facility] [place] [facility] [address] [id number] [place] [address]- 3300 07 Feb, 2011 [facility] [place] [facility] [address] [id number] [place] [address] Feb, [facility] [place] [facility] [address] [id number] [place] [address]- 8721 Feb, [facility] [place] [facility] [address] [id number] [place] [address]- 3623 31 Jan, 2011 [facility] [place] [facility] [address] [id number] [place] [address]- 3388 27 Jan, 2011 [facility] [place] [facility] [address] [id number] [place] [address]- 8220 Jan, [facility] [place] [facility] [address] [id number] [place] [address]- 6862 24 Jan, 2011 [facility] [place] [facility] [address] [id number] [place] [address]- 7741 14 Jan, 2011 [facility] [place] [facility] [address] [id number] [place] [address]- 2270 Dec, [facility] [place] [facility] [address] [id number] [place] [address]- 5282 Oct, [facility] [place] [facility] [address] [id number] [place] [address]- 8968 August, [facility] [place] [facility] [address] [id number] [place] [address]- 9638 Mar, [facility] [place] [facility] [address] [id number] [place] [address]- 1788 27 Mar, 2010 [facility] [place] [facility] [address] [id number] [place] [address]- 2547 16 Mar, 2010 [facility] [place] [facility] [address] [id number] [place]38 15 Mar, 2010 [facility] [place] [facility] [address] [id number] [place] [address]- 5930 15 Mar, 2010 [facility] [place] [facility] [address] [id number] [place] [address]- 0284 Mar, [facility] [place] [facility] [address] [id number] [place] [address]- 2354 Mar, [facility] [place] [facility] [address] [id number] [place] [address]- 4145 Feb, [facility] [address] [id number] [place] [address]- 7889 Feb, [facility] [place] [facility] [address] [id number] [place] [address]- 2582 Feb, [facility] [address] [id number] [place] [address]- 0232 Jan, [facility] [address] [id number] [place] [address]- 9716 Jan, [facility] [address] [id number] [place] [address]- 8713 Jan, [facility] [place] [facility] [address] [id number] [place] [address]- 5813 Nov, [facility] [place] [facility] [address] [id number] [place] [address]- 3734 Sep, [facility] [place] [facility] [address] [id number], [place] [address]- 1531 August, [facility] [place] [facility] [address] [id number] [place] [address]- 9639 Mar, [facility] [place] [facility] [address] [id number] [place] [address]- 5876 Mar, [facility] [place] [facility] [address] [id number] [place] [address]- 2547 Feb, [facility] [place] [facility] [address] [id number], [place] [address]- 6276 Feb, [facility] [id number], [place] [address]- 1225 Feb, [facility] [id number], [place] [address]- 2820 Feb, [facility] [id number], [place] [address]- 2376 Feb, [facility] [id number], [place] [address]- 1734 Jan, [facility] [id number], [place] [address]- 0227 Jan, [facility] [id number], [place] [address]- 3623 Jan, [facility] [id number], [place] [address]- 8435 Jan, [facility] [id number], [place] [address]- 3722 Nov, [facility] [id number], [place] [address]- 3600 Sep, [facility] [id number], [place] [address]- 6167 August, [facility] [address] [id number], [place] [address]- 5244 Jul, [facility] [id number], [place] [address]- 6874 May, IMMUNIZATIONS No Known Immunizations SOCIAL [...]
--- OUTSIDE RECORDS SUMMARY | 2018-01-01 13:03 | XMS REPORT ---
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 Active 77330784 Problem Colon polyp K63.5 Active 17229555 Problem Bilateral low back pain without sciatica M54.5 Active 431717696 Problem Screening breast examination Z12.39 Active 024145349 Problem Postmenopausal Z78.0 Active 15403004 Problem Osteopenia M85.80 Active 422253391 Problem Cigarette nicotine dependence without complication F17.210 Active 43205845 Problem Type 2 diabetes mellitus with diabetic peripheral angiopathy without gangrene E11.51 Active 009796718 Problem Vascular dementia without behavioral disturbance F01.50 Active [id number] Problem Unspecified atherosclerosis of [place] arteries of extremities, unspecified extremity I70.209 Active 644650977767400 Problem Arthritis M19.90 Active 5909605 Problem Chronic atrial fibrillation I48.2 Active 140842806 Problem Chronic obstructive pulmonary disease with acute lower respiratory infection J44.0 Active 921809901 Problem Other chronic pancreatitis K86.1 Active 696936748 Problem Stress incontinence of urine N39.3 Active 26890735 Problem Controlled type 2 diabetes mellitus without complication, without long -term current use of insulin E11.9 Active 308997668 Problem Unspecified psychosis F29 Active 07068916 Problem Xeroderma Q80.9 Active 00376495 Problem COPD (chronic obstructive pulmonary disease) J44.9 Active 61834659 Problem Dementia without behavioral disturbance, unspecified dementia type F03.90 Active 42456481 Problem Gastroparesis K31.84 Active 954888504 Problem Type 2 diabetes mellitus with diabetic neuropathy, without long-term current use of insulin E11.40 Active 44644697 Problem Osteoporosis M81.0 Active 63469534 Problem Atherosclerosis of [place] artery of both lower extremities with intermittent claudication I70.213 Active 084640922079144 Problem Hyperlipidemia E78.5 Active 35563956 Problem Diabetic polyneuropathy associated with type 2 diabetes mellitus E11.42 Active 68491895 Problem Essential tremor G25.0 Active 95636862 Problem 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.118 Active 7242608569067 Problem Generalized anxiety disorder F41.1 Active 769664753 Problem Gastroesophageal reflux disease, esophagitis presence not specified K21.9 Active 365087492 Problem Coronary artery disease involving [place] coronary artery of [place] heart with other form of angina pectoris I25.118 Active 3260609673621 Problem Postconcussion syndrome F07.81 Active 10704665 Problem Chronic pain syndrome G89.4 Active 825589908 Problem Migraine without aura and without status migrainosus, not intractable G43.009 Active 433085275 Problem Paroxysmal atrial fibrillation I48.0 Active 677504680 Problem Migraine without aura and with status migrainosus, not intractable G43.001 Active 951801109 Problem Cervicalgia M54.2 Active 1367933076519 Problem Acute exacerbation of chronic obstructive pulmonary disease (COPD) J44.1 Active 181690738 Problem Major depressive disorder, recurrent episode, moderate F33.1 Active 660046799 Problem Crohn''s disease without complication, unspecified gastrointestinal tract location K50.90 Active 02769506 Problem Chronic fatigue R53.82 Active 07990708 Problem Bipolar affective disorder, currently depressed, moderate F31.32 Active 054812925 ALLERGIES No Information ENCOUNTERS Encounter Location Date Diagnosis [facility] [address] [facility] [id number] [address] Nov, [facility] [address] [facility] [id number] [address] Oct, [facility] [id number] [address]36 Oct, [facility] [address] [facility] [id number] [place] [address] Oct, [place] [address] [address] Sep, [facility] [address] [address] 9721 Sep, [facility] [address] [address] 7177 Sep, [facility] [id number] [place] [address] 48168- 5278 18 Sep, 2017 Encounter for well woman exam with routine gynecological exam Z01.419 ; Screening for STDs (sexually transmitted diseases) Z11.3 ; Screening breast examination Z12.31 and Overweight (BMI 25.0-29.9) E66.3 [facility] [address] [address] Sep, [facility] [id number] [place] [address] 41790- 6977 Sep, [facility] [address] [address] 9683 Sep, [facility] [address] [address]- 9855 August, [facility] [address] [address] 3161 August, [facility] [address] [address] 2056 August, Type 2 diabetes mellitus with diabetic neuropathy, without long-term current use of insulin E11.40 and Sprain of right ankle, unspecified ligament, initial encounter S93.401A [facility] [address] [address] 9326 August, [facility] [address] [address] 3330 August, [facility] [address] [address] 5218 August, [facility] [id number] [place] [address] 77323- 3748 August, Gastroesophageal reflux disease, esophagitis presence not specified K21.9 [facility] [id number] [place] [address] 71590- 4536 August, [facility] [id number] [place] [address] 17942- 9549 August, [facility] [id number] [place] [address] 47293- 7349 August, [facility] [id number] [place] [address] 98142- 7232 August, Type 2 diabetes mellitus with diabetic neuropathy, without long-term current use of insulin E11.40 and Elevated liver enzymes R74.8 [place] [id number] [place] [address] 87714- 8322 Jul, [facility] [id number] [place] [address] 70086- 1012 Jul, Cough R05 [facility] [id number] [place] [address] 34039- 1946 Jul, [facility] [id number] [place] [address] 20369- 0551 Jul, [facility] [id number] [place] [address] 33282- 0378 Jul, Bipolar affective disorder, currently depressed, moderate F31.32 ; Vascular dementia without behavioral disturbance F01.50 and Generalized anxiety disorder F41.1 [facility] [id number] [place] [address] 67412- 1950 Jul, [facility] [id number] [place] [address] 59275- 4429 Jul, Type 2 diabetes mellitus with diabetic neuropathy, without long-term current use of insulin E11.40 and Elevated liver enzymes R74.8 [facility] [id number] [place] [address] 78971- 3683 Jul, [facility] [id number] [place] [address] 04529- 8308 Jul, [facility] [id number] [place] [address] 02028- 1387 Jul, [facility] [id number] [place] [address] 48331- 4289 Jul, Post-menopausal Z78.0 [facility] [id number] [place] [address] 32696- 7439 Jul, Stress incontinence of urine N39.3 [facility] [id number] [place] [address] 70324- 1911 Jul, [facility] [id number] [place] [address] 36811- 6505 Jul, [facility] [address] 92187- 6239 Jul, Stress incontinence of urine N39.3 and Cough R05 [facility] [id number] [place] [address] 93210- 0905 Jul, [facility] [id number] [place] [address] 34985- 8935 Jul, [facility] [id number] [place] [address] 21527- 5346 Jul, [facility] [id number] [place] [address] 13242- 4431 Jul, Gastroesophageal reflux disease, esophagitis presence not specified K21.9 [facility] [id number] [place] [address] 36113- 2155 Jun, Diabetic polyneuropathy associated with type 2 diabetes mellitus E11.42 [facility] [id number] [place] [address] 11300- 0386 Jun, Diabetic polyneuropathy associated with type 2 diabetes mellitus E11.42 ; Coronary artery disease involving [place] coronary artery of [place] heart with other form of angina pectoris I25.118 and Paroxysmal atrial fibrillation I48.0 [facility] [id number] [place] [address] 30052- 6379 27 Jun, 2017 [facility] [id number] [place] [address] 24782- 9484 Jun, [facility] [id number] [place] [address] 81795- 1445 Jun, Gastroenteritis K52.9 [facility] [id number] [place] [address] 466799- 4180 Jun, Gastroenteritis K52.9 [facility] [id number] [place] [address] 56021- 3316 Jun, [facility] [id number] [place] [address] 65413- 0890 Jun, [facility] [id number] [place] [address] 81691- 7988 Jun, Sprain of right ankle, unspecified ligament, initial encounter S93.401A ; Type 2 diabetes mellitus with diabetic neuropathy, without long-term current use of insulin E11.40 ; Atherosclerosis of [place] artery of both lower extremities with intermittent claudication I70.213 ; 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.118 ; Chronic atrial fibrillation I48.2 and Crohn''s disease without complication, unspecified gastrointestinal tract location K50.90 [facility] [address] [address] 17 Jun, 2017 Cough R05 and Chronic obstructive pulmonary disease with acute lower respiratory infection J44.0 [facility] [id number] [place] [address] 97304- 7026 16 Jun, 2017 [facility] [id number] [place] [address] 44712- 1126 15 Jun, 2017 Coughing R05 ; Unspecified atherosclerosis of [place] arteries of extremities, unspecified extremity I70.209 ; Type 2 diabetes mellitus with diabetic peripheral angiopathy without gangrene E11.51 ; Crohn''s disease without complication, unspecified gastrointestinal tract location K50.90 ; Other chronic pancreatitis K86.1 and Chronic atrial fibrillation I48.2 [facility] [address] [address] Jun, [facility] [id number] [place] [address] 43298- 5978 Jun, Bipolar affective disorder, currently depressed, moderate F31.32 ; Vascular dementia without behavioral disturbance F01.50 and Generalized anxiety disorder F41.1 [facility] [id number] [place] [address] 78772- 3034 May, Generalized anxiety disorder F41.1 [facility] [id number] [place] [address] 86607- 1553 May, [facility] [id number] [place] [address] 91854- 1649 May, [facility] [id number] [place] [address] 05448- 0518 May, Coughing R05 [facility] [id number] [place] [address] 86444- 2679 May, [facility] [id number] [place] [address] 41544- 7161 May, Bipolar affective disorder, currently depressed, moderate F31.32 ; Vascular dementia without behavioral disturbance F01.50 and Generalized anxiety disorder F41.1 [facility] [address] [address]- 5717 Apr, Generalized anxiety disorder F41.1 [facility] [id number] [place] [address] 79019- 5130 Apr, [facility] [id number] [place] [address] 26317- 1757 Apr, Vascular dementia without behavioral disturbance F01.50 ; Generalized anxiety disorder F41.1 and Bipolar affective disorder, currently depressed, moderate F31.32 [place] [id number] [place] [address] 29912- 4975 Apr, Generalized anxiety disorder F41.1 [facility] [id number] [place] [address] 36222 -0458 Apr, Cough R05 and Acute exacerbation of chronic obstructive pulmonary disease (COPD) J44.1 [place] [address] 02281- 4779 Apr, [facility] [id number] [place] [address] 38386 -8842 Mar, Cough R05 and Cigarette nicotine dependence without complication F17.210 [place] [address] 87580- 4804 Mar, [place] [address] 75313- 3931 Feb, Generalized anxiety disorder F41.1 ; Major depressive disorder, recurrent episode, moderate F33.1 ; Vascular dementia without behavioral disturbance F01.50 and Unspecified psychosis F29 [place] [id number] [place] [address] 25199- 2207 Feb, [place] [id number] [place] [address] 76801- 0325 Feb, [place] [address] 18688- 3051 Feb, Generalized anxiety disorder F41.1 [place] [id number] [place] [address] 84453- 7183 Feb, Generalized anxiety disorder F41.1 [place] [address] 60343- 8944 Feb, Dizziness R42 ; Chronic fatigue R53.82 ; Postconcussion syndrome F07.81 ; Fall, initial encounter W19.XXXA and Disorientation R41.0 [place] [id number] [place] [address] 50213- 7233 Feb, Postconcussion syndrome F07.81 ; Injury of head, initial encounter S09.90XA ; Fall, initial encounter W19.XXXA ; Disorientation R41.0 and Acute cystitis with hematuria N30.01 [place] [id number] [place] [address] 62537- 0668 Jan, Gastroesophageal reflux disease, esophagitis presence not specified K21.9 ; Post-menopausal Z78.0 and Migraine without aura and without status migrainosus, not intractable G43.009 [place] [id number] [place] [address] 46739- 0725 Jan, [place] [id number] [place] [address] 19043- 2766 Jan, Generalized anxiety disorder F41.1 ; Major depressive disorder, recurrent episode, moderate F33.1 ; Vascular dementia without behavioral disturbance F01.50 and Unspecified psychosis F29 [place] [id number] [place] [address] 56003- 0220 Jan, Pneumonia of left lower lobe due to infectious organism J18.1 [place] [id number] [place] [address] 80471- 5689 Jan, Migraine without aura and with status migrainosus, not intractable G43.001 [facility] [id number] [place] [address] 73110 -3261 Jan, Migraine without aura and without status migrainosus, not intractable G43.009 [place] [id number] [place] [address] 82167- 4891 Dec, Hematoma T14.8 [place] [id number] [place] [address] 31701- 7358 Dec, [facility] [id number] [place] [address] 36449 -5896 Nov, Fatigue, unspecified type R53.83 [facility] [address] [address]- 7677 Nov, Scabies B86 and Coronary artery disease involving [place] coronary artery of [place] heart with other form of angina pectoris I25.118 [facility] [address] [address]- 8453 Nov, [facility] [id number] [place] [address] 93985- 3848 Nov, [facility] [id number] [place] [address] 34327- 6662 Oct, [place] [id number] [place] [address] 41863- 8865 Oct, Generalized anxiety disorder F41.1 and Major depressive disorder, recurrent episode, moderate F33.1 [place] [id number] [place] [address] 16200- 0703 Oct, Cramp of both lower extremities R25.2 [place] [id number] [place] [address] 94714- 2486 Oct, Leg cramps R25.2 [place] [id number] [place] [address] 14264- 0731 Oct, Chronic pain syndrome G89.4 [place] [id number] [place] [address] 40566- 6937 Oct, [facility] [id number] [place] [address] 79787- 2646 Oct, [facility] [address] [place] [address] 86538- 9007 Oct, Routine gynecological examination Z01.419 and Screening for breast cancer Z12.31 [facility] [address] [place] [address] 00971- 8865 Sep, Diarrhea R19.7 [facility] [id number] [place] [address] 86155- 3484 Sep, Back pain M54.9 [place] [id number] [place] [address] 58185- 5193 Sep, [place] [id number] [place] [address] 28400- 0321 Sep, [facility] [id number] [place] [address] 98551 -9860 August, Xeroderma Q80.9 [place] [address] 91631- 6304 August, Dementia without behavioral disturbance, unspecified dementia type F03.90 [place] [address] 32653- 6841 August, Chronic pain syndrome G89.4 [place] [id number] [place] [address] 66585- 8976 August, [place] [address] 39202- 3731 August, Hyperlipidemia E78.5 ; Other fatigue R53.83 and Other specified hypotension I95.89 [facility] [id number] [place] [address] 46994 -8738 August, Dysuria R30.0 ; Other fatigue R53.83 and Other specified hypotension I95.89 [place] [id number] [place] [address] 28107- 8079 August, [place] [id number] [place] [address] 07225- 2109 Jul, Pain in left knee M25.562 and Gastroenteritis K52.9 [place] [id number] [place] [address] 75563- 1598 Jul, [place] [id number] [place] [address] 87357- 1324 Jul, Diarrhea R19.7 [facility] [id number] [place] [address] 74458 -3114 Jul, Spider bite, accidental or unintentional, initial encounter T63.301A [place] [address] 98258- 8472 Jul, Primary osteoarthritis of right knee M17.11 and Arthritis M19.90 [place] [address] 27117- 2505 Jul, Generalized anxiety disorder F41.1 and Major depressive disorder, recurrent episode, moderate F33.1 [place] [address] 53595- 6278 Jul, Type 2 diabetes mellitus with diabetic polyneuropathy E11.42 and Temporal headache R51 [place] [address] 56642- 6024 06 Jul, 2016 Back pain M54.9 [place] [address] 65559- 9860 Jul, [place] [address] 35462- 9730 Jul, [place] [address] 82962- 0825 Jun, Nausea R11.0 [facility] [place] [id number] [place] [address] 34859 -7111 Jun, Acute suppurative otitis media of both ears without spontaneous rupture of tympanic membranes, recurrence not specified H66.003 and COPD exacerbation J44.1 [place] [id number] [place] [address] 88407- 1201 Jun, Generalized anxiety disorder F41.1 [place] [id number] [place] [address] 56248- 3897 16 Jun, 2016 [facility] [id number] [place] [address] 33489 -3243 Jun, [facility] [id number] [place] [address] 51194 -2213 13 Jun, 2016 Shortness of breath R06.02 and COPD exacerbation J44.1 [facility] [id number] [place] [address] 97914- 4784 10 Jun, 2016 Eczema, unspecified type L30.9 [facility] [id number] [place] [address] 44705- 7279 Jun, [facility] [id number] [place] [address] 73531- 2503 May, [place] [address] 57460- 9055 May, Muscle cramping R25.2 [place] [id number] [place] [address] 36072- 5236 May, [place] [address] 20994- 4657 Apr, Diarrhea R19.7 [place] [id number] [place] [address] 89270- 9046 Apr, [place] [id number] [place] [address] 47908- 7061 Apr, Chronic pain syndrome G89.4 [place] [id number] [place] [address] 74091- 6500 Apr, Cramp of both lower extremities R25.2 and Vascular dementia without behavioral disturbance F01.50 [place] [id number] [place] [address] 46472- 4064 Apr, Type 2 diabetes mellitus with diabetic polyneuropathy E11.42 and Cigarette nicotine dependence without complication F17.210 [facility] [id number] [place] [address] 77695- 9820 Mar, Generalized anxiety disorder F41.1 [place] [id number] [place] [address] 92026- 5658 Feb, Generalized anxiety disorder F41.1 and Major depressive disorder, recurrent episode, moderate F33.1 [facility] [id number] [place] [address] 16013- 5001 Feb, [facility] [id number] [place] [address] 47590 -9371 Feb, Dysuria R30.0 and Acute cystitis with hematuria N30.01 [place] [id number] [place] [address] 81203- 0371 Jan, [place] [id number] [place] [address] 57240- 8445 Jan, [place] [id number] [place] [address] 81245- 3683 Jan, [place] [address] [place] [id number] [place] [address] 94514- 9234 Jan, [facility] [id number] [place] [address] 74342 -5961 Jan, Wasp sting, accidental or unintentional, initial encounter T63.461A [facility] [id number] [place] [address] 20864- 6259 Jan, Encounter for immunization Z23 [facility] [id number] [place] [address] 23883- 6534 Jan, [facility] [id number] [place] [address] 77268- 7377 Jan, [facility] [id number] [place] [address] 41094- 3996 Dec, Generalized anxiety disorder F41.1 and Major depressive disorder, recurrent episode, moderate F33.1 [facility] [id number] [place] [address] 36980- 2447 Dec, Routine gynecological examination Z01.419 ; Postmenopausal Z78.0 ; Screening breast examination Z12.39 ; Osteopenia M85.80 and Breast cancer screening Z12.39 [facility] [address] [address] 1101 20 Dec, 2015 [facility] [address] [address]- 7982 19 Dec, 2015 [facility] [address] [address]- 7607 16 Dec, 2015 [facility] [address] [address]- 0980 16 Dec, 2015 [facility] [address] [place] [place] [address]- 1190 14 Dec, 2015 [facility] [id number] [place] [address] 83108- 4322 06 Dec, 2015 [facility] [address] [address] 1898 Nov, [facility] [address] [address] Nov, Cough R05 ; Other viral agents as the cause of diseases classified elsewhere B97.89 and Acute upper respiratory infection, unspecified J06.9 [facility] [address] [address]- 4372 Nov, [facility] [address] [address]- 6893 Nov, [facility] [address] [address]- 1320 Nov, [facility] [address] [address]- 9407 Nov, [facility] [address] [address]- 5201 Nov, [facility] [address] [address]- 9529 Oct, [facility] [id number] [place] [address] 66009- 3471 18 Oct, 2015 [facility] [id number] [place] [address] 78504- 8782 Oct, [facility] [id number] [place] [address] 42888- 3986 Oct, Chronic pain syndrome G89.4 [facility] [id number] [place] [address] 35216- 4992 Sep, Generalized anxiety disorder F41.1 and Major depressive disorder, recurrent episode, moderate F33.1 [facility] [id number] [place] [address] 36224- 9092 Sep, [facility] [id number] [place] [address] 87336- 1713 Sep, [facility] [id number] [place] [address] 11242- 5221 Sep, Generalized anxiety disorder F41.1 [facility] [id number] [place] [address] 31800- 5380 13 Sep, 2015 Cramp of both lower extremities R25.2 and Cervicalgia M54.2 [facility] [id number] [place] [address] 30604- 9693 Sep, Generalized anxiety disorder F41.1 [facility] [id number] [place] [address] 18806- 8411 Sep, [facility] [id number] [place] [address] 26889 -6586 August, Rash R21 ; Itching L29.9 and Allergic response, subsequent encounter T78.40XD [facility] [id number] [place] [address] 74876- 4840 August, Primary insomnia F51.01 [facility] [id number] [place] [address] 05589 -1443 August, Rash R21 ; Itching L29.9 and Allergic response, initial encounter T78.40XA [facility] [id number] [place] [address] 89985- 6457 August, [facility] [id number] [place] [address] 91048- 3476 August, Cramp of both lower extremities R25.2 [facility] [id number] [place] [address] 70314- 4177 August, Back pain M54.9 [facility] [id number] [place] [address] 53415- 1837 August, [facility] [id number] [place] [address] 01524- 9689 August, [facility] [id number] [place] [address] 84449 -3123 August, Cramp of both lower extremities R25.2 [facility] [id number] [place] [address] 68908- 1791 August, [facility] [id number] [place] [address] 78809- 2986 August, Syncope R55 ; Paroxysmal atrial fibrillation I48.0 ; Dementia without behavioral disturbance, unspecified dementia type F03.90 and Chronic pain syndrome G89.4 [facility] [id number] [address]- 3255 August, Type 2 diabetes mellitus with diabetic polyneuropathy E11.42 and Syncope R55 [facility] [id number] [address]- 8312 Jul, [facility] [id number] [place] [address] 64039- 2454 Jul, [facility] [id number] [place] [address] 96757- 9963 Jul, [facility] [id number] [place] [address] 20491- 9063 Jul, [facility] [address] [address]- 6546 Jul, [facility] [id number] [place] [address] 75642- 7635 19 Jul, 2015 UTI (urinary tract infection) N39.0 [facility] [address] [address]- 2256 Jul, [facility] [id number] [place] [address] 42731- 2616 18 Jul, 2015 Major depressive disorder, recurrent episode, moderate F33.1 and Generalized anxiety disorder F41.1 [facility] [id number] [place] [address] 32804- 6829 Jul, Generalized anxiety disorder F41.1 [facility] [address] [address]- 6090 Jul, Diarrhea R19.7 [facility] [address] [address]- 4959 Jul, [facility] [address] [address]- 4853 Jun, [facility] [address] [address]- 3440 Jun, Eczema L30.9 [facility] [address] [address]- 8106 Jun, [facility] [address] [address]- 6396 Jun, COPD (chronic obstructive pulmonary disease) J44.9 [facility] [address] [address]- 7126 16 Jun, 2015 [facility] [address] [address]- 0897 Jun, Major depressive disorder, recurrent episode, moderate F33.1 and Generalized anxiety disorder F41.1 [facility] [address] [address]- 3676 May, [facility] [address] [address]- 5879 May, UTI (urinary tract infection) N39.0 [facility] [address] [address]- 7935 May, [facility] [address] [address]- 6870 May, [facility] [address] [address]- 8903 May, [facility] [address] [address]- 2255 May, [facility] [address] [address]- 3135 Apr, Major depressive disorder, recurrent episode, moderate F33.1 and Generalized anxiety disorder F41.1 [facility] [address] [address]- 3455 Apr, COPD (chronic obstructive pulmonary disease) J44.9 [facility] [address] [address]- 5319 Apr, [facility] [address] [address]- 8521 Apr, Atrial flutter I48.92 [facility] [address] [address]- 1432 Apr, [facility] [address] [address]- 2022 Apr, [facility] [address] [address]- 2506 Mar, [facility] [address] [address]- 4777 Mar, [facility] [id number] [place] [address] 33142- 4192 Mar, [facility] [id number] [place] [address] 05031- 2644 Mar, Hyperlipidemia E78.5 ; Type 2 diabetes mellitus with diabetic polyneuropathy E11.42 ; Major depressive disorder, recurrent episode, moderate F33.1 and Chronic pain syndrome G89.4 [facility] [id number] [place] [address] 39527- 5917 Mar, [facility] [id number] [place] [address] 05228- 0724 Mar, [facility] [id number] [place] [address] 91919- 5438 Mar, [facility] [id number] [place] [address] 83789- 2140 Mar, [facility] [id number] [place] [address] 19264- 8612 Feb, COPD (chronic obstructive pulmonary disease) J44.9 and Back pain M54.9 [facility] [id number] [place] [address] 58745- 6935 Feb, [facility] [id number] [place] [address] 06448- 5399 Feb, [facility] [id number] [place] [address] 32801- 1610 Feb, [facility] [id number] [place] [address] 29179- 6737 Feb, [facility] [id number] [place] [address] 75118- 5199 Feb, [facility] [id number] [place] [address] 26958- 9524 Feb, [facility] [id number] [place] [address] 71328- 2077 Feb, [facility] [id number] [place] [address] 43908- 3267 Feb, [facility] [id number] [place] [address] 30298- 5867 Feb, Diabetes E11.9 ; Back pain M54.9 and COPD (chronic obstructive pulmonary disease) J44.9 [facility] [id number] [place] [address] 12636- 8468 Jan, [facility] [id number] [place] [address] 23959- 6538 Jan, Major depression, recurrent F33.9 and Generalized anxiety disorder F41.1 [facility] [id number] [place] [address] 44065- 3895 Jan, Chronic pain G89.29 [facility] [address] 53480- 9834 Jan, [facility] [id number] [place] [address] 06235- 1029 Jan, [facility] [address] 35064- 8198 Jan, [facility] [id number] [place] [address] 07623- 2088 Jan, [facility] [id number] [place] [address] 03312- 1002 Jan, Nicotine dependence F17.200 [facility] [id number] [place] [address] 60933- 4605 Jan, Nicotine dependence F17.200 and Back pain M54.9 [facility] [id number] [place] [address] 00649- 0741 Jan, [facility] [id number] [place] [address] 95655- 6526 Dec, [facility] [id number] [place] [address] 53178- 9192 25 Dec, 2014 Anxiety, generalized 300.02 and Major depression, recurrent 296.30 [facility] [id number] [place] [address] 86509- 4570 24 Dec, 2014 [facility] [id number] [place] [address] 41074- 8805 21 Dec, 2014 [facility] [id number] [place] [address] 12210- 3349 17 Dec, 2014 [facility] [id number] [place] [address] 04791- 7320 15 Dec, 2014 [facility] [id number] [place] [address] 63355- 6319 14 Dec, 2014 [facility] [id number] [place] [address] 39903- 4624 11 Dec, 2014 [facility] [id number] [place] [address] 96867- 9708 10 Dec, 2014 [facility] [id number] [place] [address] 43425- 1360 08 Dec, 2014 Skin tear 879.8 [facility] [id number] [place] [address] 85880- 8731 08 Dec, 2014 Routine gynecological examination V72.31 ; Breast cancer screening V76.10 and Family history of breast cancer in first degree relative V16.3 [facility] [id number] [place] [address] 95521- 6505 03 Dec, 2014 [facility] [id number] [place] [address] 05732- 7062 Dec, [facility] [id number] [place] [address] 85847- 8952 Nov, [facility] [id number] [place] [address] 05940- 2160 Nov, [facility] [id number] [place] [address] 25417- 4034 Nov, Poor balance 781.99 and Vascular dementia, uncomplicated 290.40 [facility] [id number] [place] [address] 48856- 7121 Nov, [facility] [id number] [place] [address] 70948- 9646 Nov, Major depression, recurrent 296.30 and Anxiety, generalized 300.02 [facility] [id number] [place] [address] 75364- 1495 Nov, [facility] [id number] [place] [address] 06594- 5649 Nov, [facility] [id number] [place] [address] 15959- 2710 Nov, [facility] [id number] [place] [address] 49763- 4635 Nov, [facility] [id number] [place] [address] 60932- 2988 Nov, Vascular dementia, uncomplicated 290.40 and Lumbago 724.2 [facility] [id number] [place] [address] 91485- 0708 Nov, [facility] [id number] [place] [address] 17409- 1439 Nov, [facility] [id number] [place] [address] 43077- 5083 Nov, [facility] [id number] [place] [address] 53075- 8484 Oct, [facility] [id number] [place] [address] 90871- 2239 Oct, [facility] [id number] [place] [address] 31414- 7820 Oct, [facility] [id number] [place] [address] 92891- 7970 Oct, COPD (chronic obstructive pulmonary disease) 496 and Hyperlipidemia 272.4 [facility] [address] [address]- 6856 Oct, Major depression, recurrent 296.30 and Anxiety, generalized 300.02 [facility] [id number] [place] [address] 35370- 5879 Oct, [facility] [id number] [place] [address] 12146- 6736 Oct, [facility] [id number] [place] [address] 53825- 6295 Oct, [facility] [id number] [place] [address] 04570- 1034 Sep, Lumbago 724.2 and Anxiety state, unspecified 300.00 [facility] [id number] [place] [address] 57974- 9525 Sep, [facility] [id number] [place] [address] 26781- 6827 Sep, [facility] [id number] [place] [address] 48454- 7620 August, [facility] [id number] [place] [address] 38846- 6106 August, Major depression, recurrent 296.30 ; Anxiety, generalized 300.02 and No condition on Barnes II V71.09 [facility] [address] [address]- 9937 August, [facility] [id number] [address]- 8215 August, [facility] [id number] [place] [address] 79009- 9105 Jul, [facility] [id number] [address]- 8249 Jul, [facility] [id number] [place] [place] [address]- 0411 13 Jul, 2014 [facility] [place] [facility] [address] [id number] [place] [address]- 2316 30 Jun, 2014 [facility] [place] [facility] [address] [id number] [place] [address]- 0636 30 Jun, 2014 [facility] [place] [facility] [address] [id number] [place] [address]- 5255 27 Jun, 2014 [facility] [place] [facility] [address] [id number] [place] [address]- 6911 27 Jun, 2014 [facility] [place] [facility] [address] [id number] [place] [address]- 3022 26 Jun, 2014 [facility] [place] [facility] [address] [id number] [place] [address]- 2975 Jun, [facility] [place] [facility] [address] [id number] [place] [address]- 5826 Jun, [facility] [place] [facility] [address] [id number] [place] [address]- 6668 17 Jun, 2014 [facility] [place] [facility] [address] [id number] [place] [address]- 1412 Jun, [facility] [place] [facility] [address] [id number] [place] [address]- 4882 Jun, [facility] [place] [facility] [address] [id number] [place] [address]- 0281 10 Jun, 2014 [facility] [place] [facility] [address] [id number] [place] [address]- 9494 10 Jun, 2014 [facility] [place] [facility] [address] [id number] [place] [address]- 7567 07 Jun, 2014 [facility] [place] [facility] [address] [id number] [place] [address]- 9306 07 Jun, 2014 [facility] [place] [facility] [address] [id number] [place] [address]- 1520 02 Jun, 2014 [facility] [place] [facility] [address] [id number] [place] [address]- 9674 Jun, 2014 [facility] [place] [facility] [address] [id number] [place] [address]- 5056 May, 2014 [facility] [place] [facility] [address] [id number] [place] [address]- 3526 May, 2014 [facility] [place] [facility] [address] [id number] [place] [address]- 6977 May, 2014 [facility] [place] [facility] [address] [id number] [place] [address]- 9678 May, 2014 [facility] [place] [facility] [address] [id number] [place] [address]- 0789 May, 2014 [facility] [place] [facility] [address] [facility] [id number] [place] [address]- 8614 May, 2014 [facility] [place] [facility] [address] [id number] [place] [address]- 7566 May, 2014 [facility] [place] [facility] [address] [id number] [place] [address]- 9751 May, 2014 [facility] [place] [facility] [address] [facility] [id number] [place] [address]- 7850 May, 2014 [facility] [place] [facility] [address] [facility] [id number] [place] [address]- 5200 May, 2014 [facility] [place] [facility] [address] [id number] [place] [address]- 2544 May, 2014 [facility] [place] [facility] [address] [id number] [place] [address]- 2544 May, 2014 [facility] [place] [facility] [address] [id number] [place] [address]- 4683 May, 2014 [facility] [place] [facility] [address] [facility] [id number] [place] [address]- 2547 May, 2014 [facility] [place] [facility] [address] [id number] [place] [address]- 0327 Apr, [facility] [address] [id number] [place] [address]- 3320 Apr, [facility] [place] [facility] [address] [id number] [place] [address]- 3246 Apr, [facility] [address] [id number] [place] [address]- 0995 Apr, [facility] [address] [id number] [place] [address]- 6868 Apr, [facility] [address] [id number] [place] [address]- 8432 Apr, [facility] [address] [id number] [place] [address]- 5271 Apr, [facility] [address] [id number] [place] [address]- 2541 Apr, [facility] [address] [id number] [place] [address]- 8793 Apr, [facility] [place] [facility] [address] [id number] [place] [address]- 7791 Apr, [facility] [address] [id number] [place] [address]- 0481 Apr, [facility] [place] [facility] [address] [id number] [place] [address]- 3335 Apr, [facility] [address] [id number] [place] [address]- 3834 Mar, [facility] [place] [facility] [address] [id number] [place] [address] Mar, [facility] [place] [facility] [address] [id number] [place] [address] Mar, [facility] [place] [facility] [address] [id number] [place] [address] Mar, [facility] [place] [facility] [address] [id number] [place] [address] Mar, [facility] [place] [facility] [address] [id number] [place] [address] Mar, [facility] [place] [facility] [address] [id number] [place] [address] Mar, [facility] [place] [facility] [address] [id number] [place] [address] Mar, [facility] [place] [facility] [address] [id number] [place] [address]- [address] 15 Mar, 2014 [facility] [place] [facility] [address] [id number] [place] [address]- [address] Mar, [facility] [place] [facility] [address] [id number] [place] [address] 15 Mar, 2014 [facility] [place] [facility] [address] [id number] [place] [address]- [address] 15 Mar, 2014 [facility] [place] [facility] [address] [id number] [place] [address]- [address] Mar, [facility] [place] [facility] [address] [id number] [place] [address]- [address] Mar, [facility] [place] [facility] [address] [id number] [place] [address]- 2000 Mar, [facility] [place] [facility] [address] [id number] [place] [address]- [address] Mar, [facility] [place] [facility] [address] [id number] [place] [address]- [address] Mar, [facility] [place] [facility] [address] [id number] [place] [address]- [address] Mar, [facility] [place] [facility] [address] [id number] [place] [address] Mar, [facility] [place] [facility] [address] [id number] [place] [address] Mar, [facility] [place] [facility] [address] [id number] [place] [address] Feb, [facility] [place] [facility] [address] [id number] [place] [address] Feb, [facility] [place] [facility] [address] [id number] [place] [address] Feb, [facility] [place] [facility] [address] [id number] [place] [address]- [address] Feb, [facility] [place] [facility] [address] [id number] [place] [address] 1954 Feb, [facility] [place] [facility] [address] [id number] [place] [address] Feb, [facility] [place] [facility] [address] [id number] [place] [address] 8256 Feb, [facility] [place] [facility] [address] [id number] [place] [address] 2[address] Feb, [facility] [place] [facility] [address] [id number] [place] [address] 3725 Feb, [facility] [place] [facility] [address] [id number] [place] [address] 7771 Feb, [facility] [place] [facility] [address] [id number] [place] [address] 3739 Feb, [facility] [place] [facility] [address] [id number] [place] [address] 2[address] Feb, [facility] [place] [facility] [address] [id number] [place] [address] 6014 Feb, [facility] [place] [facility] [address] [id number] [place] [address]- 1375 Feb, [facility] [place] [facility] [address] [id number] [place] [address] 6468 Feb, [facility] [place] [facility] [address] [id number] [place] [address]- 1192 Feb, [facility] [place] [facility] [address] [id number] [place] [address] Feb, [facility] [place] [facility] [address] [id number] [place] [address]- 3259 Jan, [facility] [place] [facility] [address] [id number] [place] Jan, [facility] [place] [facility] [address] [id number] [place] [address]- 9426 Jan, [facility] [place] [facility] [address] [id number] [place] [address]- 2265 Jan, [facility] [place] [facility] [address] [id number] [place] [address]- 7640 Jan, [facility] [place] [facility] [address] [id number] [place] [address]- 9968 Jan, [facility] [place] [facility] [address] [id number] [place] [address]- 4906 Jan, [facility] [place] [facility] [address] [id number] [place] [address]- 0064 Jan, [facility] [place] [facility] [address] [id number] [place] [address]- 5127 Jan, [facility] [place] [facility] [address] [id number] [place] [address]- 3157 Jan, [facility] [place] [facility] [address] [id number] [place] [address] Jan, [facility] [place] [facility] [address] [id number] [place] [address]- 8137 Dec, [facility] [place] [facility] [address] [id number] [place] [address] Dec, [facility] [place] [facility] [address] [id number] [place] [address]- 4501 Nov, [facility] [place] [facility] [address] [id number] [place] [address]- 9553 Nov, [facility] [place] [facility] [address] [id number] [place] [address]- 8168 Nov, [facility] [place] [facility] [address] [id number] [place] [address]- 6615 Nov, [facility] [place] [facility] [address] [id number] [place] [address]- 9529 Nov, [facility] [place] [facility] [address] [id number] [place] [address]- 5795 Nov, [facility] [place] [facility] [address] [id number] [place] [address]- 4719 Nov, [facility] [place] [facility] [address] [id number] [place] [address]- 7812 Oct, [facility] [place] [facility] [address] [id number] [place] [address]- 6102 Oct, [facility] [place] [facility] [address] [id number] [place] [address]- 1715 Oct, [facility] [place] [facility] [address] [id number] [place] [address]- 9085 Oct, [facility] [place] [facility] [address] [id number] [place] [address]- 1044 Sep, [facility] [place] [facility] [address] [id number] [place] [address]- 2541 Sep, [facility] [place] [facility] [address] [id number] [place] [address]- 8761 Sep, [facility] [place] [facility] [address] [id number] [place] [address]- 4364 Sep, [facility] [place] [facility] [address] [id number] [place] [address]- 3075 Sep, [facility] [place] [facility] [address] [id number] [place] [address]- 6110 Sep, [facility] [place] [facility] [address] [id number] [place] [address]- 3061 Sep, [facility] [place] [facility] [address] [id number] [place] [address]- 2707 Sep, [facility] [place] [facility] [address] [id number] [place] [address]- 5120 Sep, [facility] [place] [facility] [address] [id number] [place] [address]- 5592 Sep, [facility] [place] [facility] [address] [id number] [place] [address]- 8221 Sep, [facility] [place] [facility] [address] [id number] [place] [address]- 4644 Sep, [facility] [place] [facility] [address] [id number] [place] [address]- 0064 Sep, [facility] [place] [facility] [address] [id number] [place] [address]- 1388 Sep, [facility] [place] [facility] [address] [id number] [place] [address]- 8209 August, [facility] [place] [facility] [address] [id number] [place] [address]- 3654 August, [facility] [place] [facility] [address] [id number] [place] [address]- 5141 August, [facility] [place] [facility] [address] [id number] [place] [address]- 1092 August, [facility] [place] [facility] [address] [id number] [place] [address]- 3616 August, [facility] [place] [facility] [address] [id number] [place] [address]- 8815 August, [facility] [place] [facility] [address] [id number] [place] [address]- 8221 August, [facility] [place] [facility] [address] [id number] [place] [address]- 8043 August, [facility] [address] [id number] [place] [address]- 8813 August, [facility] [address] [id number] [place] [address]- 6274 August, [facility] [address] [id number] [place] [address]- 6455 August, [facility] [address] [id number] [place] [address]- 8233 August, [facility] [address] [id number] [place] [address]- 9671 August, [facility] [address] [id number] [place] [address]- 3771 August, [facility] [address] [id number] [place] [address]- 6329 August, [facility] [address] [id number] [place] [address]- 0790 August, [facility] [address] [id number] [place] [address]- 1014 August, [facility] [address] [id number] [place] [address]- 1668 August, [facility] [place] [facility] [address] [id number] [place] [address]- 4016 August, [facility] [place] [facility] [address] [id number] [place] [address]- 0789 Jul, [facility] [place] [facility] [address] [id number] [place] [address]- 3907 Jul, [facility] [place] [facility] [address] [id number] [place] [address]- 3234 Jul, [facility] [place] [facility] [address] [id number] [place] [address]- 9765 08 Jul, 2013 [facility] [place] [facility] [address] [id number] [place] [address]- 5030 Jun, [facility] [place] [facility] [address] [id number] [place] [address]- 5197 Jun, [facility] [place] [facility] [address] [id number] [place] [address]- 0536 Jun, [facility] [place] [facility] [address] [id number] [place] [address]- 4093 24 Jun, 2013 [facility] [place] [facility] [address] [id number] [place] [address]- 3182 Jun, [facility] [place] [facility] [address] [id number] [place] [address]- 0104 Jun, [facility] [place] [facility] [address] [id number] [place] [address]- 5165 Jun, [facility] [place] [facility] [address] [id number] [place] [address]- 5766 14 Jun, 2013 [facility] [place] [facility] [address] [id number] [place] [address]- 5799 Jun, [facility] [place] [facility] [address] [id number] [place] [address]- 1861 Jun, [facility] [place] [facility] [address] [id number] [place] [address]- 0607 May, [facility] [place] [facility] [address] [id number] [place] [address]- 1832 May, [facility] [place] [facility] [address] [id number] [place] [address]- 2053 May, [facility] [place] [facility] [address] [id number] [place] [address]- 7985 May, [facility] [place] [facility] [address] [id number] [place] [address]- 4343 May, [facility] [place] [facility] [address] [id number] [place] [address]- 3679 May, [facility] [place] [facility] [address] [id number] [place] [address]- 6636 20 May, 2013 [facility] [place] [facility] [address] [id number] [place] [address]- 8256 May, [facility] [place] [facility] [address] [id number] [place] [address]- 4926 May, [facility] [place] [facility] [address] [id number] [place] [address]- 8658 May, [facility] [place] [facility] [address] [id number] [place] [address]- 4276 May, [facility] [place] [facility] [address] [id number] [place] [address]- 2750 17 May, 2013 [facility] [place] [facility] [address] [id number] [place] [address]- 2104 May, [facility] [place] [facility] [address] [id number] [place] [address]- 9419 May, [facility] [place] [facility] [address] [id number] [place] [address]- 4271 10 May, 2013 [facility] [place] [facility] [address] [id number] [place] [address]- 9735 07 May, 2013 [facility] [place] [facility] [address] [id number] [place] [address]- 2545 May, [facility] [place] [facility] [address] [id number] [place] [address]- 7405 Apr, [facility] [place] [facility] [address] [id number] [place] [address]- 4709 15 Apr, 2013 [facility] [place] [facility] [address] [id number] [place] [address]- 5839 15 Apr, 2013 [facility] [place] [facility] [address] [id number] [place] [address]- 7064 Apr, [facility] [address] [id number] [place] [address]- 3981 Apr, [facility] [address] [id number] [place] [address]- 6521 Apr, [facility] [address] [id number] [place] [address]- 6503 Apr, [facility] [address] [id number] [place] [address]- 9998 Mar, [facility] [address] [id number] [place] [address]- 4284 Mar, [facility] [address] [id number] [place] [address]- 7272 Mar, [facility] [address] [id number] [place] [address]- 8303 Mar, [facility] [address] [id number] [place] [address]- 5897 Mar, [facility] [address] [id number] [place] [address]- 0246 Mar, [facility] [address] [id number] [place] [address]- 5465 Mar, [facility] [address] [id number] [place] [address]- 0612 Mar, [facility] [address] [id number] [place] [address]- 8044 Mar, [facility] [address] [id number] [place] [address]- 3255 Mar, [facility] [address] [id number] [place] [address]- 9456 Mar, [facility] [address] [id number] [place] [address]- 9467 Feb, [facility] [place] [facility] [address] [id number] [place] [address]- 2753 Feb, [facility] [place] [facility] [address] [id number] [place] [address]- 9197 Feb, [facility] [place] [facility] [address] [id number] [place] [address]- 6597 20 Feb, 2013 [facility] [place] [facility] [address] [id number] [place] [address]- 0332 Feb, [facility] [place] [facility] [address] [id number] [place] [address]- 0814 19 Feb, 2013 [facility] [place] [facility] [address] [id number] [place] [address]- 3078 15 Feb, 2013 [facility] [place] [facility] [address] [id number] [place] [address]- 6179 14 Feb, 2013 [facility] [place] [facility] [address] [id number] [place] [address]- 1881 14 Feb, 2013 [facility] [place] [facility] [address] [id number] [place] [address]- 8804 Feb, [facility] [place] [facility] [address] [id number] [place] [address]- 9926 13 Feb, 2013 [facility] [place] [facility] [address] [id number] [place] [address]- 3907 12 Feb, 2013 [facility] [place] [facility] [address] [id number] [place] [address]- 0591 12 Feb, 2013 [facility] [place] [facility] [address] [id number] [place] [address]- 3265 Feb, [facility] [place] [facility] [address] [id number] [place] [address]- 8410 05 Feb, 2013 [facility] [place] [facility] [address] [id number] [place] [address]- 6055 05 Feb, 2013 [facility] [place] [facility] [address] [id number] [place] [address]- 0436 Jan, [facility] [place] [facility] [address] [id number] [place] [address]- 5816 Jan, [facility] [place] [facility] [address] [id number] [place] [address]- 6691 Jan, [facility] [place] [facility] [address] [id number] [place] [address]- 2361 Jan, [facility] [place] [facility] [address] [id number] [place] [address]- 1094 Jan, [facility] [place] [facility] [address] [id number] [place] [address]- 4104 Jan, [facility] [place] [facility] [address] [id number] [place] [address]- 8160 Jan, [facility] [place] [facility] [address] [id number] [place] [address]- 3839 Jan, [facility] [place] [facility] [address] [id number] [place] [address]- 5725 10 Jan, 2013 [facility] [place] [facility] [address] [id number] [place] [address]- 3999 27 Dec, 2012 [facility] [place] [facility] [address] [id number] [place] [address]- 6430 20 Dec, 2012 [facility] [place] [facility] [address] [id number] [place] [address]- 8120 19 Dec, 2012 [facility] [place] [facility] [address] [id number] [place] [address]- 2549 10 Dec, 2012 [facility] [place] [facility] [address] [id number] [place] [address]- 1492 04 Dec, 2012 [facility] [place] [facility] [address] [id number] [place] [address]- 0613 03 Dec, 2012 [facility] [place] [facility] [address] [id number] [place] [address]- 1737 Nov, [facility] [place] [facility] [address] [id number] [place] [address]- 4591 Nov, [facility] [place] [facility] [address] [id number] [place] [address]- 5860 Nov, [facility] [place] [facility] [address] [id number] [place] [address]- 9134 Nov, [facility] [place] [facility] [address] [id number] [place] [address]- 5559 Nov, [facility] [place] [facility] [address] [id number] [place] [address]- 8864 Nov, [facility] [place] [facility] [address] [id number] [place] [address]- 0794 Nov, [facility] [place] [facility] [address] [id number] [place] [address]- 4374 Nov, [facility] [place] [facility] [address] [id number] [place] [address]- 8830 Nov, [facility] [place] [facility] [address] [id number] [place] [address]- 5603 Nov, [facility] [place] [facility] [address] [id number] [place] [address]- 8227 Oct, [facility] [place] [facility] [address] [id number] [place] [address]- 9332 Oct, [facility] [place] [facility] [address] [id number] [place] [address]- 8934 Oct, [facility] [place] [facility] [address] [id number] [place] [address]- 7997 Oct, [facility] [place] [facility] [address] [id number] [place] [address]- 3546 Oct, [facility] [place] [facility] [address] [id number] [place] [address]- 6946 Oct, [facility] [place] [facility] [address] [id number] [place] [address]- 3749 Oct, [facility] [address] [id number] [place] [address]- 5834 Oct, [facility] [place] [facility] [address] [id number] [place] [address]- 4418 Sep, [facility] [place] [facility] [address] [id number] [place] [address]- 1531 Sep, [facility] [place] [facility] [address] [id number] [place] [address]- 5124 Sep, [facility] [address] [id number] [place] [address]- 6071 Sep, [facility] [place] [facility] [address] [id number] [place] [address]- 0766 Sep, [facility] [place] [facility] [address] [id number] [place] [address]- 4809 Sep, [facility] [place] [facility] [address] [id number] [place] [address]- 3524 Sep, [facility] [place] [facility] [address] [id number] [place] [address]- 5913 Sep, [facility] [place] [facility] [address] [id number] [place] [address]- 7491 August, [facility] [place] [facility] [address] [id number] [place] [address]- 3546 August, [facility] [place] [facility] [address] [id number] [place] [address]- 1373 August, [facility] [place] [facility] [address] [id number] [place] [address]- 4368 August, [facility] [place] [facility] [address] [id number] [place] [address]- 7120 August, [facility] [place] [facility] [address] [id number] [place] [address]- 1171 Jul, [facility] [place] [facility] [address] [id number] [place] [address]- 7988 25 Jul, 2012 [facility] [address] [id number] [place] [address]- 5694 Jul, [facility] [address] [id number] [place] [address]- 2719 04 Jul, 2012 [facility] [address] [id number] [place] [address]- 6974 Jul, [facility] [address] [id number] [place] [address]- 5624 18 Jun, 2012 [facility] [address] [id number] [place] [address]- 6796 18 Jun, 2012 [facility] [address] [id number] [place] [address] 15 Jun, 2012 [facility] [address] [id number] [place] [address] 14 Jun, 2012 [facility] [address] [id number] [place] [address] Jun, [facility] [address] [id number] [place] [address] 08 Jun, 2012 [facility] [address] [facility] [id number] [place] [address] Jun, [facility] [address] [id number] [place] [address] Jun, [facility] [place] [facility] [address] [id number] [place] [address] Jun, [facility] [place] [facility] [address] [id number] [place] [address] May, [facility] [place] [facility] [address] [id number] [place] [address] May, [facility] [place] [facility] [address] [id number] [place] [address] May, [facility] [address] [id number] [place] [address] May, [facility] [address] [id number] [place] [address] Apr, [facility] [address] [id number] [place] [address] Apr, [facility] [address] [id number] [place] [address]- [address] Apr, [facility] [address] [id number] [place] [address]- [address] Apr, [facility] [address] [id number] [place] [address] Apr, [facility] [address] [id number] [place] [address]28 Apr, [facility] [address] [id number] [place] [address] Apr, [facility] [address] [id number] [place] [address] Mar, [facility] [place] [id number] Mar, [facility] [address] [id number] [place] [address] Mar, [facility] [address] [id number] [place] [address] Mar, [facility] [address] [id number] [place] [address] Mar, [facility] [address] [id number] [place] [address]85 Mar, [facility] [address] [id number] [place] [address] Mar, [facility] [address] [id number] [place] [address] Mar, [facility] [place] [facility] [address] [id number] [place] [address] Mar, [facility] [place] [facility] [address] [id number] [place] [address] Mar, [facility] [place] [facility] [address] [id number] [place] [address] Mar, [facility] [place] [facility] [address] [id number] [place] [address]- [address] Mar, [facility] [place] [facility] [address] [id number] [place] [address]- [address] Mar, [facility] [place] [facility] [address] [id number] [place] [address]- 7044 Mar, [facility] [place] [facility] [address] [id number] [place] [address] Mar, [facility] [place] [facility] [address] [id number] [place] [address] Mar, [facility] [place] [facility] [address] [id number] [place] [address] 8637 Mar, [facility] [place] [facility] [address] [id number] [place] [address] 130[address] Feb, [facility] [place] [facility] [address] [id number] [place] [address] Feb, [facility] [place] [facility] [address] [id number] [place] [address] Feb, [facility] [place] [facility] [address] [id number] [place] [address]- [address] Feb, [facility] [place] [facility] [address] [id number] [place] [address] Feb, [facility] [place] [facility] [address] [id number] [place] [address]- 97[address] Feb, [facility] [place] [facility] [address] [id number] [place] [address]- [address] Feb, [facility] [place] [facility] [address] [id number] [place] [address]- 9[address] Feb, [facility] [place] [facility] [address] [id number] [place] [address]- 9206 Feb, [facility] [place] [facility] [address] [id number] [place] [address]- [address] 16 Feb, 2012 [facility] [place] [facility] [address] [id number] [place] [address]- [address]149 Feb, [facility] [place] [facility] [address] [id number] [place] [address]- [address] Feb, [facility] [place] [facility] [address] [id number] [place] [address]- 7047 Feb, [facility] [place] [facility] [address] [id number] [place] [address]- 5436 Feb, [facility] [place] [facility] [address] [id number] [place] [address]- 7713 Feb, [facility] [place] [facility] [address] [id number] [place] [address]- [address]270 Feb, [facility] [place] [facility] [address] [facility] [id number] [place] [address]- [address] Jan, [facility] [place] [facility] [address] [id number] [place] [address]- 8896 Jan, [facility] [place] [facility] [address] [id number] [place] [address] Jan, [facility] [place] [facility] [address] [id number] [place] [address]- [address] Jan, [facility] [place] [facility] [address] [id number] [place] [address]- 66[address] Jan, [facility] [place] [facility] [address] [id number] [place] [address] Jan, [facility] [place] [facility] [address] [id number] [place] [address]- 0967 Jan, [facility] [place] [facility] [address] [id number] [place] [address]- [address] 24 Jan, 2012 [facility] [place] [facility] [address] [id number] [place] [address]- 9778 Jan, [facility] [place] [facility] [address] [id number] [place] [address]- 8544 Jan, [facility] [place] [facility] [address] [id number] [place] [address]- 9484 Jan, [facility] [place] [facility] [address] [id number] [place] [address]- 4394 Jan, [facility] [place] [facility] [address] [id number] [place] [address]- 0031 Jan, [facility] [place] [facility] [address] [id number] [place] [address]- 7039 Jan, [facility] [place] [facility] [address] [id number] [place] [address]- 7931 Jan, [facility] [place] [facility] [address] [id number] [place] [address]- [address] 05 Jan, 2012 [facility] [place] [facility] [address] [id number] [place] [address]- 9[address] Jan, [facility] [place] [facility] [address] [id number] [place] [address]- 6329 21 Dec, 2011 [facility] [place] [facility] [address] [id number] [place] [address]- 3835 20 Dec, 2011 [facility] [place] [facility] [address] [id number] [place] [address]- 97[address] 18 Dec, 2011 [facility] [place] [facility] [address] [id number] [place] [address] 18 Dec, 2011 [facility] [place] [facility] [address] [id number] [place] [address] 10 Dec, 2011 [facility] [place] [facility] [address] [id number] [place] [address] 10 Dec, 2011 [facility] [place] [facility] [address] [id number] [place] [address] Dec, [facility] [place] [facility] [address] [id number] [place] [address]46 Dec, [facility] [place] [facility] [address] [id number] [place] [address] Nov, [facility] [place] [facility] [address] [id number] [place] [address]298 Nov, [facility] [place] [facility] [address] [id number] [place] [address] Nov, [facility] [place] [facility] [address] [id number] [place] [address] Nov, [facility] [place] [facility] [address] [id number] [place] [address] 1357 Nov, [facility] [place] [facility] [address] [id number] [place] [address] Nov, [facility] [place] [facility] [address] [id number] [place] [address] 48[address] Oct, [facility] [place] [facility] [address] [id number] [place] [address] Oct, [facility] [place] [facility] [address] [id number] [place] [address]80 Oct, [facility] [place] [facility] [address] [id number] [place] [address] Oct, [facility] [place] [facility] [address] [id number] [place] [address]- 1419 Oct, [facility] [place] [facility] [address] [id number] [place] [address]- 6[address] Oct, [facility] [place] [facility] [address] [id number] [place] [address] 28[address] Oct, [facility] [address] [id number] [place] [address] Sep, [facility] [place] [facility] [address] [id number] [place] [address]261 Sep, [facility] [address] [id number] [place] [address] Sep, [facility] [place] [facility] [address] [id number] [place] [address]245 Sep, [facility] [address] [id number] [place] [address]797 Sep, [facility] [address] [id number] [place] [address] Sep, [facility] [address] [id number] [place] [address]- 3064 Sep, [facility] [address] [id number] [place] [address] Sep, [facility] [place] [facility] [address] [id number] [place] [address] 49[address] Sep, [facility] [address] [id number] [place] [address] 7665 Sep, [facility] [place] [facility] [address] [id number] [place] [address] 1071 August, [facility] [address] [id number] [place] [address]32 August, [facility] [place] [facility] [address] [id number] [place] [address]- 4668 August, [facility] [place] [facility] [address] [id number] [place] [address]159 August, [facility] [place] [facility] [address] [id number] [place] [address]- 9[address] August, [facility] [address] [id number] [place] [address] 3369 Jul, [facility] [place] [facility] [address] [id number] [place] [address] 57[address] Jul, [facility] [place] [facility] [address] [id number] [place] [address]- 1048 Jul, [facility] [place] [facility] [address] [id number] [place] [address] 8506 Jul, [facility] [place] [facility] [address] [id number] [place] [address]- 5582 Jul, [facility] [place] [facility] [address] [id number] [place] [address]- 5336 Jul, [facility] [place] [facility] [address] [id number] [place] [address]- 3717 Jul, [facility] [place] [facility] [address] [id number] [place] [address]- 4518 Jun, [facility] [place] [facility] [address] [id number] [place] [address]- 4740 Jun, [facility] [place] [facility] [address] [id number] [place] [address]- 0244 Jun, [facility] [place] [facility] [address] [id number] [place] [address]- 8745 Jun, [facility] [place] [facility] [address] [id number] [place] [address]- 6421 Jun, [facility] [place] [facility] [address] [id number] [place] [address]- 4250 May, [facility] [place] [facility] [address] [id number] [place] [address]- 6736 May, [facility] [place] [facility] [address] [id number] [place] [address]- 9432 May, [facility] [place] [facility] [address] [id number] [place] [address]- 9463 May, [facility] [place] [facility] [address] [id number] [place] [address]- 9841 May, [facility] [place] [facility] [address] [id number] [place] [address]- 9200 May, [facility] [place] [facility] [address] [id number] [place] [address]- 7316 Apr, [facility] [place] [facility] [address] [id number] [place] [address]- 5289 Mar, [facility] [place] [facility] [address] [id number] [place] [address]- 4362 Feb, [facility] [place] [facility] [address] [id number] [place] [address]- 8402 Feb, [facility] [place] [facility] [address] [id number] [place] [address]- 4400 Feb, [facility] [place] [facility] [address] [id number] [place] [address]- 3729 Feb, [facility] [place] [facility] [address] [id number] [place] [address]- 7271 Jan, [facility] [place] [facility] [address] [facility] [id number] [place] [address]- 8518 Jan, [facility] [place] [facility] [address] [id number] [place] [address]- 8012 Jan, [facility] [place] [facility] [address] [id number] [place] [address]- 9593 24 Jan, 2011 [facility] [place] [facility] [address] [id number] [place] [address]- 5273 14 Jan, 2011 [facility] [place] [facility] [address] [id number] [place] [address]- 0611 Dec, [facility] [place] [facility] [address] [id number] [place] [address]- 4701 Oct, [facility] [place] [facility] [address] [id number] [place] [address]- 7526 August, [facility] [address] [id number] [place] [address]- 4538 29 Mar, 2010 [facility] [address] [id number] [place] [address] Mar, [facility] [place] [facility] [address] [id number] [place] [address]- 1796 16 Mar, 2010 [facility] [address] [id number] [place] [address]- 4281 15 Mar, 2010 [facility] [address] [id number] [place] [address]- 8157 Mar, [facility] [address] [id number] [place] [address]- 5813 Mar, [facility] [address] [id number] [place] [address]- 8746 Mar, [facility] [address] [id number] [place] [address]- 7247 Feb, [facility] [address] [id number] [place] [address]- 1734 Feb, [facility] [address] [id number] [place] [address]- 7315 Feb, [facility] [place] [facility] [address] [id number] [address]- 4899 Jan, [facility] [place] [facility] [address] [id number] [place] [address]- 2395 Jan, [facility] [place] [facility] [address] [id number] [place] [address]- 2280 Jan, [facility] [place] [facility] [address] [id number] [place] [address] Nov, [facility] [place] [facility] [address] [id number] [place] [address]- [address]703 14 Sep, 2009 [facility] [place] [facility] [address] [id number] [address]- 1230 August, [facility] [place] [facility] [address] [id number] [place] [address]- [address]136 30 Mar, 2009 [facility] [place] [facility] [address] [id number] [place] [address]- 6501 Mar, [facility] [place] [facility] [address] [id number] [place] [address]- 9580 17 Feb, 2009 [facility] [place] [facility] [address] [id number] [place] [address]- 2132 Feb, [facility] [place] [facility] [address] [id number] [place] [address]- 9531 Feb, [facility] [place] [facility] [address] [id number] [place] [address]- 3727 Feb, [facility] [place] [facility] [address] [id number] [place] [address]- 7327 Feb, [facility] [place] [facility] [address] [id number] [place] [address]- 7116 27 Jan, 2009 [facility] [place] [facility] [address] [id number] [place] [address]- 7537 Jan, [facility] [place] [facility] [address] [id number] [place] [address]- 3526 Jan, [facility] [place] [facility] [address] [id number] [place] [address]- 8305 Jan, [facility] [place] [facility] [address] [id number] [place] [address]- 6380 Nov, [facility] [place] [facility] [address] [id number] [place] [address]- 9787 16 Sep, 2008 [facility] [place] [facility] [address] [id number] [place] [address]- [address]126 August, [facility] [place] [facility] [address] [facility] [id number] [place] [address]- 26[address] Jul, [facility] [address] [facility] [id number] [place] [address]- 4714 May, IMMUNIZATIONS No Known Immunizations SOCIAL HISTORY [...]
--- OUTSIDE RECORDS SUMMARY | 2018-01-01 13:06 | XMS REPORT ---
Author Author [facility]IT [facility]UN[facility]AP [facility] Address [address] [place] [address] Care Team Providers Care Finish Mixer Name Role Phone SENAIT DUNLAP Unavailable PROBLEMS Type Condition ICD9-CM Code CQR02-RK Code Onset Dates Condition Status SNOMED Code Problem History of common bile duct surgery Z98.89 Active 993997524 Problem Barretts esophagus K22.70 Active 490434703 Problem 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 Active 87809481 Problem Colon polyp K63.5 Active 17642945 Problem Bilateral low back pain without sciatica M54.5 Active 132776421 Problem Screening breast examination Z12.39 Active 624817664 Problem Postmenopausal Z78.0 Active 69153333 Problem Osteopenia M85.80 Active 112510303 Problem Cigarette nicotine dependence without complication F17.210 Active 45507359 Problem Type 2 diabetes mellitus with diabetic peripheral angiopathy without gangrene E11.51 Active 002698325 Problem Vascular dementia without behavioral disturbance F01.50 Active [id number] Problem Unspecified atherosclerosis of [place] arteries of extremities, unspecified extremity I70.209 Active 878672576411460 Problem Arthritis M19.90 Active 7086072 Problem Chronic atrial fibrillation I48.2 Active 058670786 Problem Chronic obstructive pulmonary disease with acute lower respiratory infection J44.0 Active 439948932 Problem Other chronic pancreatitis K86.1 Active 203442371 Problem Stress incontinence of urine N39.3 Active 30233435 Problem Controlled type 2 diabetes mellitus without complication, without long -term current use of insulin E11.9 Active 117414302 Problem Unspecified psychosis F29 Active 72299670 Problem Xeroderma Q80.9 Active 33809744 Problem COPD (chronic obstructive pulmonary disease) J44.9 Active 23169169 Problem Dementia without behavioral disturbance, unspecified dementia type F03.90 Active 79276567 Problem Gastroparesis K31.84 Active 124016378 Problem Type 2 diabetes mellitus with diabetic neuropathy, without long-term current use of insulin E11.40 Active 93088284 Problem Osteoporosis M81.0 Active 76649978 Problem Atherosclerosis of [place] artery of both lower extremities with intermittent claudication I70.213 Active 400463531848711 Problem Hyperlipidemia E78.5 Active 98001632 Problem Diabetic polyneuropathy associated with type 2 diabetes mellitus E11.42 Active 18840399 Problem Essential tremor G25.0 Active 40204998 Problem 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.118 Active 4887391943789 Problem Generalized anxiety disorder F41.1 Active 784072985 Problem Gastroesophageal reflux disease, esophagitis presence not specified K21.9 Active 050196143 Problem Coronary artery disease involving [place] coronary artery of [place] heart with other form of angina pectoris I25.118 Active 2160593380179 Problem Postconcussion syndrome F07.81 Active 07541848 Problem Chronic pain syndrome G89.4 Active 508880824 Problem Migraine without aura and without status migrainosus, not intractable G43.009 Active 867802050 Problem Paroxysmal atrial fibrillation I48.0 Active 476135176 Problem Migraine without aura and with status migrainosus, not intractable G43.001 Active 027868680 Problem Cervicalgia M54.2 Active 2673500021672 Problem Acute exacerbation of chronic obstructive pulmonary disease (COPD) J44.1 Active 404768768 Problem Major depressive disorder, recurrent episode, moderate F33.1 Active 348729163 Problem Crohn''s disease without complication, unspecified gastrointestinal tract location K50.90 Active 78574390 Problem Chronic fatigue R53.82 Active 36800544 Problem Bipolar affective disorder, currently depressed, moderate F31.32 Active 128973189 ALLERGIES No Information ENCOUNTERS Encounter Location Date Diagnosis [facility], [place] [address] [facility] [id number] [address] Nov, [facility], [place] [id number] [address]34 Oct, [facility], [place] [id number] [address] 5998 Oct, [facility], [place] [id number] [address] Oct, [facility], [place] [address] [address] 28 Sep, 2017 [facility], [place] [address] [address] 1681 Sep, [facility], [place] [id number] [address] 6564 Sep, [facility], [place] [id number] [place] [address] 08471- 3950 18 Sep, 2017 Encounter for well woman exam with routine gynecological exam Z01.419 ; Screening for STDs (sexually transmitted diseases) Z11.3 ; Screening breast examination Z12.31 and Overweight (BMI 25.0-29.9) E66.3 [facility], [place] [address] [address] Sep, [facility], [place] [id number] [address] 6977 Sep, [facility], [place] [address] [address] 2796 Sep, [facility], [place] [address] [address] 6988 August, [facility], [place] [address] [address] 0020 August, [facility], [place] [address], [place] [address] 9416 August, Type 2 diabetes mellitus with diabetic neuropathy, without long-term current use of insulin E11.40 and Sprain of right ankle, unspecified ligament, initial encounter S93.401A [facility], [place] [address], [place] [address] 4745 August, [facility], [place] [address] [address] 6105 August, [facility], [place] [address], [place] [address] 9390 August, [facility], [place] [id number] [place] [address] 01555- 7357 August, Gastroesophageal reflux disease, esophagitis presence not specified K21.9 [facility], [place] [id number] [place] [address] 13620- 7447 August, [facility], [place] [id number] [place] [address] 68697- 1000 August, [facility], [place] [address] 98783- 3678 August, [facility], [place] [id number] [place] [address] 15993- 7400 August, Type 2 diabetes mellitus with diabetic neuropathy, without long-term current use of insulin E11.40 and Elevated liver enzymes R74.8 [place] [id number] [place] [address] 16472- 6369 Jul, [facility], [place] [address] 61661- 9256 Jul, Cough R05 [facility], [place] [id number] [place] [address] 53095- 5989 Jul, [facility], [place] [id number] [place] [address] 55215- 0814 Jul, [facility], [place] [id number] [place] [address] 62776- 9167 Jul, Bipolar affective disorder, currently depressed, moderate F31.32 ; Vascular dementia without behavioral disturbance F01.50 and Generalized anxiety disorder F41.1 [facility], [place] [id number] [place] [address] 94962- 0167 Jul, [facility], [place] [id number] [place] [address] 05179- 4976 Jul, Type 2 diabetes mellitus with diabetic neuropathy, without long-term current use of insulin E11.40 and Elevated liver enzymes R74.8 [facility], [place] [id number] [place] [address] 33691- 5594 Jul, [facility], [place] [id number] [place] [address] 89391- 6795 Jul, [facility], [place] [id number] [place] [address] 92632- 3995 Jul, [facility], [place] [id number] [place] [address] 38074- 1255 Jul, Post-menopausal Z78.0 [facility], [place] [id number] [place] [address] 80507- 3962 Jul, Stress incontinence of urine N39.3 [facility], [place] [id number] [place] [address] 18676- 0711 Jul, [facility], [place] [id number] [place] [address] 34653- 9116 Jul, [facility], [place] [address] 56198- 7502 Jul, Stress incontinence of urine N39.3 and Cough R05 [facility], [place] [id number] [place] [address] 01619- 1503 Jul, [facility], [place] [id number] [place] [address] 28395- 6686 Jul, [facility], [place] [id number] [place] [address] 21584- 5042 Jul, [facility], [place] [id number] [place] [address] 88844- 9219 Jul, Gastroesophageal reflux disease, esophagitis presence not specified K21.9 [facility], [place] [id number] [place] [address] 85111- 8348 Jun, Diabetic polyneuropathy associated with type 2 diabetes mellitus E11.42 [facility], [place] [id number] [place] [address] 43937- 0510 Jun, Diabetic polyneuropathy associated with type 2 diabetes mellitus E11.42 ; Coronary artery disease involving [place] coronary artery of [place] heart with other form of angina pectoris I25.118 and Paroxysmal atrial fibrillation I48.0 [facility], [place] [address] [address]- 1380 Jun, [facility], [place] [address] [address]- 2263 Jun, [facility], [place] [id number] [place] [address] 737279- 3252 Jun, Gastroenteritis K52.9 [facility], [place] [id number] [place] [address] 23850- 2417 Jun, Gastroenteritis K52.9 [facility], [place] [id number] [place] [address] 29136- 0755 Jun, [facility], [place] [id number] [place] [address] 05418- 4565 Jun, [facility], [place] [id number] [place] [address] 80044- 4242 Jun, Sprain of right ankle, unspecified ligament, initial encounter S93.401A ; Type 2 diabetes mellitus with diabetic neuropathy, without long-term current use of insulin E11.40 ; Atherosclerosis of [place] artery of both lower extremities with intermittent claudication I70.213 ; 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.118 ; Chronic atrial fibrillation I48.2 and Crohn''s disease without complication, unspecified gastrointestinal tract location K50.90 [facility] [address] [address] 17 Jun, 2017 Cough R05 and Chronic obstructive pulmonary disease with acute lower respiratory infection J44.0 [facility], [place] [id number] [place] [address] 42259- 3574 16 Jun, 2017 [facility], [place] [id number] [place] [address] 72751- 5172 15 Jun, 2017 Coughing R05 ; Unspecified atherosclerosis of [place] arteries of extremities, unspecified extremity I70.209 ; Type 2 diabetes mellitus with diabetic peripheral angiopathy without gangrene E11.51 ; Crohn''s disease without complication, unspecified gastrointestinal tract location K50.90 ; Other chronic pancreatitis K86.1 and Chronic atrial fibrillation I48.2 [facility] [address] [address]2757 Jun, [facility], [place] [address] [address]- 4152 Jun, Bipolar affective disorder, currently depressed, moderate F31.32 ; Vascular dementia without behavioral disturbance F01.50 and Generalized anxiety disorder F41.1 [facility], [place] [address] [address]- 5647 May, Generalized anxiety disorder F41.1 [facility], [place] [id number] [place] [address] 91402- 5855 May, [facility], [place] [id number] [place] [address] 94742- 2685 May, [facility], [place] [id number] [place] [address] 57931- 1567 May, Coughing R05 [facility], [place] [id number] [place] [address] 15029- 3829 May, [facility], [place] [address] [address]- 4160 May, Bipolar affective disorder, currently depressed, moderate F31.32 ; Vascular dementia without behavioral disturbance F01.50 and Generalized anxiety disorder F41.1 [facility], [place] [address] [address]- 6247 Apr, Generalized anxiety disorder F41.1 [facility], [place] [address] [address]- 5279 Apr, [facility], [place] [address] [address]- 2670 Apr, Vascular dementia without behavioral disturbance F01.50 ; Generalized anxiety disorder F41.1 and Bipolar affective disorder, currently depressed, moderate F31.32 [place] [id number] [place] [address] 13081- 8922 Apr, Generalized anxiety disorder F41.1 [facility] [id number] [place] [address] 59247 -7160 Apr, Cough R05 and Acute exacerbation of chronic obstructive pulmonary disease (COPD) J44.1 [facility], [place] [address] 38887- 7469 Apr, [facility] [address] 38039 -4150 Mar, Cough R05 and Cigarette nicotine dependence without complication F17.210 [place] [address] 73112- 8921 Mar, [place] [address] 27681- 4809 Feb, Generalized anxiety disorder F41.1 ; Major depressive disorder, recurrent episode, moderate F33.1 ; Vascular dementia without behavioral disturbance F01.50 and Unspecified psychosis F29 [place] [address] 19370- 3074 Feb, [place] [id number] [place] [address] 96738- 2030 Feb, [place] [id number] [place] [address] 53837- 7186 Feb, Generalized anxiety disorder F41.1 [place] [address] 69444- 2712 14 Feb, 2017 Generalized anxiety disorder F41.1 [place] [address] 90833- 8666 Feb, Dizziness R42 ; Chronic fatigue R53.82 ; Postconcussion syndrome F07.81 ; Fall, initial encounter W19.XXXA and Disorientation R41.0 [place] [id number] [place] [address] 31534- 4197 Feb, Postconcussion syndrome F07.81 ; Injury of head, initial encounter S09.90XA ; Fall, initial encounter W19.XXXA ; Disorientation R41.0 and Acute cystitis with hematuria N30.01 [place] [address] 06103- 0072 Jan, Gastroesophageal reflux disease, esophagitis presence not specified K21.9 ; Post-menopausal Z78.0 and Migraine without aura and without status migrainosus, not intractable G43.009 [place] [address] 75011- 6937 Jan, [place] [address] 28455- 4139 Jan, Generalized anxiety disorder F41.1 ; Major depressive disorder, recurrent episode, moderate F33.1 ; Vascular dementia without behavioral disturbance F01.50 and Unspecified psychosis F29 [place] [address] 77622- 8339 Jan, Pneumonia of left lower lobe due to infectious organism J18.1 [place] [address] 79063- 9485 Jan, Migraine without aura and with status migrainosus, not intractable G43.001 [facility] [address] 21527 -7966 Jan, Migraine without aura and without status migrainosus, not intractable G43.009 [place] [address] 32409- 2701 Dec, Hematoma T14.8 [place] [address] 84026- 5337 Dec, [facility] [address] 58202 -1049 Nov, Fatigue, unspecified type R53.83 [place] [address] [address]- 0969 Nov, Scabies B86 and Coronary artery disease involving [place] coronary artery of [place] heart with other form of angina pectoris I25.118 [facility], [place] [address], [place] [address]- 0266 Nov, [facility], [place] [id number] [place] [address] 95786- 9758 Nov, [facility], [place] [id number] [place] [address] 00305- 0797 Oct, [facility], [place] [id number] [place] [address] 50910- 3302 Oct, Generalized anxiety disorder F41.1 and Major depressive disorder, recurrent episode, moderate F33.1 [place] [id number] [place] [address] 60101- 7223 Oct, Cramp of both lower extremities R25.2 [place] [id number] [place] [address] 25895- 4455 Oct, Leg cramps R25.2 [facility], [place] [id number] [place] [address] 70241- 2154 Oct, Chronic pain syndrome G89.4 [facility], [place] [address], [place] [address]- 9885 Oct, [facility], [place] [address], [place] [address]- 4406 Oct, [facility], [place] [address] [place] [address] 40485- 7567 Oct, Routine gynecological examination Z01.419 and Screening for breast cancer Z12.31 [facility], [place] [address], [place] [address]- 5431 Sep, Diarrhea R19.7 [facility], [place] [id number] [place] [address] 74662- 6518 Sep, Back pain M54.9 [facility], [place] [id number] [place] [address] 03752- 1313 Sep, [place] [id number] [place] [address] 05312- 4211 Sep, [facility] [address] 70704 -5904 August, Xeroderma Q80.9 [place] [address] 58641- 0867 August, Dementia without behavioral disturbance, unspecified dementia type F03.90 [place] [address] 00432- 9299 August, Chronic pain syndrome G89.4 [place] [address] 19261- 6486 August, [place] [address] 88058- 1494 August, Hyperlipidemia E78.5 ; Other fatigue R53.83 and Other specified hypotension I95.89 [facility] [place] [id number] [place] [address] 96357 -6303 August, Dysuria R30.0 ; Other fatigue R53.83 and Other specified hypotension I95.89 [place] [id number] [place] [address] 76476- 1618 August, [place] [id number] [place] [address] 81968- 6148 Jul, Pain in left knee M25.562 and Gastroenteritis K52.9 [place] [address] 65261- 0713 Jul, [place] [id number] [place] [address] 28493- 4370 Jul, Diarrhea R19.7 [facility] [address] [place] [address] -3780 Jul, Spider bite, accidental or unintentional, initial encounter T63.301A [place] [address] 49226- 1787 Jul, Primary osteoarthritis of right knee M17.11 and Arthritis M19.90 [place] [address] 73359- 0122 Jul, Generalized anxiety disorder F41.1 and Major depressive disorder, recurrent episode, moderate F33.1 [place] [address] 96388- 4173 Jul, Type 2 diabetes mellitus with diabetic polyneuropathy E11.42 and Temporal headache R51 [place] [address] 36448- 3991 Jul, Back pain M54.9 [place] [address] 33809- 6186 Jul, [place] [address] 94291- 9856 Jul, [place] [address] 52600- 8858 30 Jun, 2016 Nausea R11.0 [facility] [place] [address] 86458 -0733 Jun, Acute suppurative otitis media of both ears without spontaneous rupture of tympanic membranes, recurrence not specified H66.003 and COPD exacerbation J44.1 [place] [id number] [place] [address] 73994- 1235 Jun, Generalized anxiety disorder F41.1 [place] [address] 39905- 3353 16 Jun, 2016 [facility] [id number] [place] [address] 36698 -9435 13 Jun, 2016 [facility] [address] [place] [address]51 13 Jun, 2016 Shortness of breath R06.02 and COPD exacerbation J44.1 [place] [id number] [place] [address] 45529- 0798 10 Jun, 2016 Eczema, unspecified type L30.9 [facility], [place] [id number] [place] [address] 40340- 6504 Jun, [facility], [place] [id number] [place] [address] 56647- 9683 May, [place] [address] 71533- 3122 May, Muscle cramping R25.2 [place] [id number] [place] [address] 48696- 1387 May, [place] [address] 58156- 9644 Apr, Diarrhea R19.7 [place] [id number] [place] [address] 31021- 9593 Apr, [place] [id number] [place] [address] 00500- 7211 Apr, Chronic pain syndrome G89.4 [place] [id number] [place] [address] 35047- 5864 Apr, Cramp of both lower extremities R25.2 and Vascular dementia without behavioral disturbance F01.50 [place] [id number] [place] [address] 42454- 6082 Apr, Type 2 diabetes mellitus with diabetic polyneuropathy E11.42 and Cigarette nicotine dependence without complication F17.210 [place] [id number] [place] [address] 44958- 8749 Mar, Generalized anxiety disorder F41.1 [place] [id number] [place] [address] 32349- 5072 Feb, Generalized anxiety disorder F41.1 and Major depressive disorder, recurrent episode, moderate F33.1 [facility] [place] [id number] [place] [address] 51945- 2495 Feb, [facility] [id number] [place] [address] 85392 -2628 Feb, Dysuria R30.0 and Acute cystitis with hematuria N30.01 [place] [address] [address] [address]- [address] Jan, [facility], [place] [address] [address]25- 1642 Jan, [place] [address] 19051- 9703 Jan, [place] [address] 44560- 6067 Jan, [facility] [address] [place] [id number] [place] [address] 80978 -6309 Jan, Wasp sting, accidental or unintentional, initial encounter T63.461A [place] [address] 52348- 2345 Jan, Encounter for immunization Z23 [place] [address] [place] [id number] [place] [address] 44476- 6267 Jan, [place] [address] [place] [id number] [place] [address] 33732- 7772 Jan, [place] [address] [place] [id number] [place] [address] 07292- 5121 Dec, Generalized anxiety disorder F41.1 and Major depressive disorder, recurrent episode, moderate F33.1 [place] [address] [place] [id number] [place] [address] 18330- 2457 Dec, Routine gynecological examination Z01.419 ; Postmenopausal Z78.0 ; Screening breast examination Z12.39 ; Osteopenia M85.80 and Breast cancer screening Z12.39 [facility], [place] [address] [facility] [id number] [place] [address]- 0797 20 Dec, 2015 [facility], [place] [address] [address]- 9040 19 Dec, 2015 [facility], [place] [address] [address]- 5679 16 Dec, 2015 [facility], [place] [address] [place] [id number] [place] [address], [place] [address]- 9629 16 Dec, 2015 [facility], [place] [address] [facility] [id number] [place] [address], [place] [address]- 3466 14 Dec, 2015 [facility], [place] [id number] [place] [address], [place] [address]- 1549 06 Dec, 2015 [facility], [place] [address] [address]- 8102 Nov, [facility] [address] [address] Nov, Cough R05 ; Other viral agents as the cause of diseases classified elsewhere B97.89 and Acute upper respiratory infection, unspecified J06.9 [facility], [place] [address] [address]- 9425 Nov, [facility], [place] [address] [address]- 3483 Nov, [facility], [place] [address], [place] [address]- 5373 Nov, [facility], [place] [address] [address]- 9037 Nov, [facility], [place] [address] [address]- 8102 Nov, [facility], [place] [address] [address]- 9025 Oct, [facility], [place] [address] [address]- 6852 18 Oct, 2015 [facility], [place] [address] [place] [id number] [place] [address] 41097- 6352 14 Oct, 2015 [facility], [place] [address] [place] [id number] [place] [address] 34662- 1117 Oct, Chronic pain syndrome G89.4 [place] [address] [place] [id number] [place] [address] 53126- 9437 Sep, Generalized anxiety disorder F41.1 and Major depressive disorder, recurrent episode, moderate F33.1 [place] [address] [place] [id number] [place] [address] 53693- 4024 Sep, [place] [address] [place] [id number] [place] [address] 07984- 9414 Sep, [place] [address] [place] [id number] [place] [address] 36724- 5590 14 Sep, 2015 Generalized anxiety disorder F41.1 [place] [address] [place] [id number] [place] [address] 47942- 3001 13 Sep, 2015 Cramp of both lower extremities R25.2 and Cervicalgia M54.2 [place] [address] [place] [id number] [place] [address] 34493- 1119 06 Sep, 2015 Generalized anxiety disorder F41.1 [place] [address] [place] [id number] [place] [address] 03097- 2901 Sep, [facility] [address] [place] [id number] [place] [address] 58606 -5969 August, Rash R21 ; Itching L29.9 and Allergic response, subsequent encounter T78.40XD [facility], [place] [address] [place] [id number] [place] [address] 13229- 8282 August, Primary insomnia F51.01 [facility] [address] [place] [id number] [place] [address] 64875 -5188 August, Rash R21 ; Itching L29.9 and Allergic response, initial encounter T78.40XA [facility], [place] [address] [place] [place] [id number] [address]- 0637 August, [facility], [place] [address] [place] [id number] [place] [address] 50808- 9633 August, Cramp of both lower extremities R25.2 [facility], [place] [address] [place] [id number] [place] [address] 89458- 6716 August, Back pain M54.9 [facility], [place] [address] [place] [id number] [place] [address] 74080- 8047 August, [facility], [place] [address] [place] [id number] [place] [address] 12826- 0884 August, [facility] [address] [place] [id number] [place] [address] 24132 -2824 August, Cramp of both lower extremities R25.2 [facility], [place] [address] [place] [id number] [place] [address] 18593- 9615 August, [facility], [place] [address] [place] [id number] [place] [address] 47025- 2242 August, Syncope R55 ; Paroxysmal atrial fibrillation I48.0 ; Dementia without behavioral disturbance, unspecified dementia type F03.90 and Chronic pain syndrome G89.4 [facility], [place] [address] [place] [id number] [place] [address] 75590- 6441 August, Type 2 diabetes mellitus with diabetic polyneuropathy E11.42 and Syncope R55 [facility], [place] [address], [place] [address]- 8507 Jul, [facility], [place] [address] [place] [id number] [place] [address] 06055- 0680 Jul, [facility], [place] [address] [place] [id number] [place] [address] 01671- 6598 Jul, [facility], [place] [address], [place] [address]- 9134 Jul, [facility], [place] [address], [place] [address]- 7753 22 Jul, 2015 [facility], [place] [address], [place] [address]- 7754 19 Jul, 2015 UTI (urinary tract infection) N39.0 [facility], [place] [address], [place] [address]- 5377 18 Jul, 2015 [facility], [place] [id number] [place] [address] 02336 2541 18 Jul, 2015 Major depressive disorder, recurrent episode, moderate F33.1 and Generalized anxiety disorder F41.1 [facility], [place] [id number] [place] [address] 93778- 8426 Jul, Generalized anxiety disorder F41.1 [facility], [place] [address] [address]- 3116 Jul, Diarrhea R19.7 [facility], [place] [id number] [place] [address] 13651- 3056 Jul, [facility], [place] [address] [address]- 1195 Jun, [facility], [place] [address], [place] [address] 2549 Jun, Eczema L30.9 [facility], [place] [address] [address]- 0906 Jun, [facility], [place] [address], [place] [address] 2549 17 Jun, 2015 COPD (chronic obstructive pulmonary disease) J44.9 [facility], [place] [address], [place] [address]- 5306 16 Jun, 2015 [facility], [place] [address] [address]- 2543 02 Jun, 2015 Major depressive disorder, recurrent episode, moderate F33.1 and Generalized anxiety disorder F41.1 [facility], [place] [id number] [address]- 0099 May, [facility], [place] [address], [place] [address]- 7518 May, UTI (urinary tract infection) N39.0 [facility], [place] [address] [address]- 5627 May, [facility], [place] [address], [place] [address]- 6641 May, [facility], [place] [address], [place] [address]- 7614 May, [facility], [place] [id number] [place] [address] 67535- 8638 May, [facility], [place] [address], [place] [address]- 3835 Apr, Major depressive disorder, recurrent episode, moderate F33.1 and Generalized anxiety disorder F41.1 [facility], [place] [address], [place] [address]- 6071 Apr, COPD (chronic obstructive pulmonary disease) J44.9 [facility], [place] [address], [place] [address]- 6502 Apr, [facility], [place] [address], [place] [address]- 6589 Apr, Atrial flutter I48.92 [facility], [place] [address], [place] [address]- 5092 Apr, [facility], [place] [address], [place] [address]- 7298 Apr, [facility], [place] [address], [place] [address]- 8801 Mar, [facility], [place] [address], [place] [address]- 4325 Mar, [facility], [place] [address] [place] [id number] [place] [address] 65072- 5371 Mar, [facility], [place] [address] [place] [id number] [place] [address] 11574- 1488 Mar, Hyperlipidemia E78.5 ; Type 2 diabetes mellitus with diabetic polyneuropathy E11.42 ; Major depressive disorder, recurrent episode, moderate F33.1 and Chronic pain syndrome G89.4 [facility], [place] [address] 29059- 2509 Mar, [facility], [place] [address] [id number] [place] [address] 66224- 3760 Mar, [facility], [place] [address] [place] [place] [id number] [place] [address] 28204- 9828 Mar, [facility], [place] [address] [id number] [place] [address] 37967- 9368 Mar, [facility], [place] [address] [place] [id number] [place] [address] 33554- 6172 Feb, COPD (chronic obstructive pulmonary disease) J44.9 and Back pain M54.9 [facility], [place] [address] [place] [place] [id number] [place] [address] 89611- 6963 Feb, [facility], [place] [address] [id number] [place] [address] 91548- 6741 Feb, [facility], [place] [address] [id number] [place] [address] 62672- 7136 Feb, [facility], [place] [id number] [place] [address] 67923- 3395 Feb, [facility], [place] [id number] [place] [address] 28969- 7351 Feb, [facility], [place] [id number] [place] [address] 11023- 7002 Feb, [facility], [place] [id number] [place] [address] 61214- 5212 Feb, [facility], [place] [address], [place] [address]- 9121 Feb, [facility], [place] [id number] [place] [address] 65183- 8257 Feb, Diabetes E11.9 ; Back pain M54.9 and COPD (chronic obstructive pulmonary disease) J44.9 [facility], [place] [id number] [place] [address] 42331- 0746 Jan, [facility], [place] [id number] [place] [address] 29681- 4608 Jan, Major depression, recurrent F33.9 and Generalized anxiety disorder F41.1 [facility], [place] [address] [place] [place] [id number] [place] [address] 72174- 1606 Jan, Chronic pain G89.29 [facility], [place] [address] [place] [id number] [place] [address] 71937- 4764 Jan, [facility], [place] [id number] [place] [address] 90114- 6649 Jan, [facility], [place] [id number] [place] [address] 71531- 9060 Jan, [facility], [place] [id number] [place] [address] 43997- 4669 Jan, [facility], [place] [address] [id number] [place] [address] 63908- 0333 Jan, Nicotine dependence F17.200 [facility], [place] [id number] [place] [address] 10044- 8721 Jan, Nicotine dependence F17.200 and Back pain M54.9 [facility], [place] [id number] [place] [address] 16978- 8055 Jan, [facility], [place] [id number] [place] [address] 22520- 6237 Dec, [facility], [place] [id number] [place] [address] 16968- 1881 Dec, 2014 Anxiety, generalized 300.02 and Major depression, recurrent 296.30 [facility], [place] [id number] [place] [address] 38520- 6969 24 Dec, 2014 [facility], [place] [id number] [place] [address] 14668- 8676 21 Dec, 2014 [facility], [place] [id number] [place] [address] 75142- 0987 17 Dec, 2014 [facility], [place] [id number] [place] [address] 22924- 7198 15 Dec, 2014 [facility], [place] [id number] [place] [address] 86315- 2229 14 Dec, 2014 [facility], [place] [id number] [place] [address] 14971- 8105 11 Dec, 2014 [facility], [place] [id number] [place] [address] 63884- 4353 10 Dec, 2014 [facility], [place] [id number] [place] [address] 18008- 6016 08 Dec, 2014 Skin tear 879.8 [facility], [place] [id number] [place] [address] 60772- 8321 08 Dec, 2014 Routine gynecological examination V72.31 ; Breast cancer screening V76.10 and Family history of breast cancer in first degree relative V16.3 [facility], [place] [id number] [place] [address] 75518- 6946 03 Dec, 2014 [facility], [place] [id number] [place] [address] 63434- 9486 Dec, [facility], [place] [id number] [place] [address] 28665- 2623 Nov, [facility], [place] [address], [place] [address]- 9436 Nov, [facility], [place] [id number] [place] [address] 13362- 3182 Nov, Poor balance 781.99 and Vascular dementia, uncomplicated 290.40 [facility], [place] [id number] [place] [address] 09477- 3696 Nov, [facility], [place] [id number] [place] [address] 94435- 2080 Nov, Major depression, recurrent 296.30 and Anxiety, generalized 300.02 [facility], [place] [id number] [place] [address] 26960- 6638 Nov, [facility], [place] [id number] [place] [address] 13073- 1210 Nov, [facility], [place] [id number] [place] [address] 24726- 4280 Nov, [facility], [place] [id number] [place] [address] 26635- 7828 Nov, [facility], [place] [id number] [place] [address] 86038- 4243 Nov, Vascular dementia, uncomplicated 290.40 and Lumbago 724.2 [facility], [place] [id number] [place] [address] 79856- 7699 Nov, [facility], [place] [id number] [place] [address] 08259- 8622 Nov, [facility], [place] [id number] [place] [address] 24248- 4462 Nov, [facility], [place] [id number] [place] [address] 64066- 4157 Oct, [facility], [place] [id number] [place] [address] 92551- 8837 Oct, [facility], [place] [id number] [place] [address] 02018- 2023 Oct, [facility], [place] [id number] [place] [address] 37477- 1055 Oct, COPD (chronic obstructive pulmonary disease) 496 and Hyperlipidemia 272.4 [facility], [place] [address], [place] [address]- 3046 Oct, Major depression, recurrent 296.30 and Anxiety, generalized 300.02 [facility], [place] [address], [place] [address]- 7980 Oct, [facility], [place] [id number] [place] [address] 62298- 8824 Oct, [facility] [place] [id number] [place] [address] 42022- 5556 Oct, [facility], [place] [id number] [place] [address] 46304- 5216 Sep, Lumbago 724.2 and Anxiety state, unspecified 300.00 [facility], [place] [id number] [place] [address] 60948- 5139 Sep, [facility] [place] [id number] [place] [address] 24942- 0652 Sep, [facility], [place] [id number] [address]- 3030 August, [facility], [place] [id number] [address]- 5189 August, Major depression, recurrent 296.30 ; Anxiety, generalized 300.02 and No condition on Walker II V71.09 [facility], [place] [address], [place] [address]- 4053 August, [facility], [place] [address], [place] [address]- 7569 August, [facility], [place] [id number] [place] [address] 90787- 1519 Jul, [facility], [place] [id number] [address]- 6062 Jul, [facility] [place] [id number] [place] [address] 73217- 0221 13 Jul, 2014 [facility] [place] [facility] [address] [id number] [place] [address]- 8098 30 Jun, 2014 [facility] [place] [facility] [address] [id number] [place] [address]- 6356 30 Jun, 2014 [facility] [place] [facility] [address] [id number] [place] [address]- 4615 Jun, [facility] [place] [facility] [address] [id number] [place] [address]- 8966 27 Jun, 2014 [facility] [place] [facility] [address] [id number] [place] [address] Jun, [facility] [place] [facility] [address] [id number] [place] [address] Jun, [facility] [place] [facility] [address] [id number] [place] [address] Jun, [facility] [place] [facility] [address] [id number] [place] [address] 17 Jun, 2014 [facility] [place] [facility] [address] [id number] [place] [address] Jun, [facility] [place] [facility] [address] [id number] [place] [address] Jun, [facility] [place] [facility] [address] [id number] [place] [address] 10 Jun, 2014 [facility] [place] [facility] [address] [id number] [place] [address] 10 Jun, 2014 [facility] [place] [facility] [address] [id number] [place] [address] 07 Jun, 2014 [facility] [place] [facility] [address] [id number] [place] [address] 07 Jun, 2014 [facility] [place] [facility] [address] [id number] [place] [address] Jun, [facility] [place] [facility] [address] [id number] [place] [address] Jun, [facility] [place] [facility] [address] [id number] [place] [address] May, 2014 [facility] [place] [facility] [address] [id number] [place] [address] May, 2014 [facility] [place] [facility] [address] [id number] [place] [address] May, 2014 [facility] [place] [facility] [address] [id number] [place] [address] May, 2014 [facility] [place] [facility] [address] [id number] [place] [address] May, 2014 [facility] [place] [facility] [address] [facility] [id number] [place] [address] May, 2014 [facility] [place] [facility] [address] [facility] [id number] [place] [address] May, 2014 [facility] [place] [facility] [address] [facility] [id number] [place] [address] May, 2014 [facility] [place] [facility] [address] [facility] [id number] [place] [address] May, 2014 [facility] [place] [facility] [address] [facility] [id number] [place] [address] May, 2014 [facility] [place] [facility] [address] [facility] [id number] [address] May, 2014 [facility] [place] [facility] [address] [facility] [id number] [place] [address] May, 2014 [facility] [place] [facility] [address] [id number] [place] [address] May, 2014 [facility] [place] [facility] [address] [facility] [id number] [place] [address] May, 2014 [facility] [place] [facility] [address] [facility] [id number] [place] [address] Apr, [facility] [place] [facility] [address] [id number] [place] [address] Apr, [facility] [place] [facility] [address] [id number] [place] [address] Apr, [facility] [place] [facility] [address] [id number] [place] [address] Apr, [facility] [place] [facility] [address] [id number] [place] [address] Apr, [facility] [place] [facility] [address] [id number] [place] [address] Apr, [facility] [place] [facility] [address] [id number] [place] [address] Apr, [facility] [place] [facility] [address] [id number] [place] [address] Apr, [facility] [place] [facility] [address] [id number] [place] [address] 29[address] Apr, [facility] [place] [facility] [address] [id number] [place] [address] 3387 Apr, [facility] [place] [facility] [address] [id number] [place] [address] 6783 Apr, [facility] [place] [facility] [address] [id number] [place] [address] 8837 Apr, [facility] [place] [facility] [address] [id number] [place] [address] 0412 Mar, [facility] [place] [facility] [address] [id number] [place] [address] 4053 Mar, [facility] [place] [facility] [address] [id number] [place] [address] 2551 Mar, [facility] [place] [facility] [address] [id number] [place] [address] 0515 Mar, [facility] [place] [facility] [address] [id number] [place] [address] 0779 Mar, [facility] [place] [facility] [address] [id number] [place] [address] 6935 Mar, [facility] [place] [facility] [address] [id number] [place] [address] 1560 Mar, [facility] [place] [facility] [address] [id number] [place] [address]- 9606 Mar, [facility] [place] [facility] [address] [id number] [place] [address]- 3557 15 Mar, 2014 [facility] [place] [facility] [address] [id number] [place] [address]- 1166 Mar, [facility] [place] [facility] [address] [id number] [place] [address]- 3410 Mar, [facility] [place] [facility] [address] [id number] [place] [address]- 0422 Mar, [facility] [place] [facility] [address] [id number] [place] [address]- 3842 Mar, [facility] [place] [facility] [address] [id number] [place] [address]- 9325 Mar, [facility] [place] [facility] [address] [id number] [place] [address] 0097 Mar, [facility] [place] [facility] [address] [id number] [place] [address] 3480 Mar, [facility] [place] [facility] [address] [id number] [place] [address]- 2676 Mar, [facility] [place] [facility] [address] [id number] [place] [address]- 7760 Mar, [facility] [place] [facility] [address] [id number] [place] [address]- 3716 Mar, [facility] [place] [facility] [address] [id number][place] [address] 8353 Mar, [facility] [place] [facility] [address] [id number] [place] [address] 1870 Feb, [facility] [place] [facility] [address] [id number] [place] [address]- 2382 Feb, [facility] [place] [facility] [address] [id number] [place] [address] 3779 Feb, [facility] [place] [facility] [address] [id number] [place] [address]- 6154 Feb, [facility] [place] [facility] [address] [id number] [place] [address]- 8260 Feb, [facility] [place] [facility] [address] [id number] [place] [address]- 2811 Feb, [facility] [place] [facility] [address] [id number] [place] [address]- 3112 Feb, [facility] [place] [facility] [address] [id number] [place] [address]- 5984 Feb, [facility] [place] [facility] [address] [id number][place] [address] 1869 Feb, [facility] [place] [facility] [address] [id number] [place] [address]- 2023 Feb, [facility] [place] [facility] [address] [id number][place] [address] 5847 Feb, [facility] [place] [facility] [address] [id number][place] [address] 9019 Feb, [facility] [place] [facility] [address] [id number] [place] [address]- 6292 Feb, [facility] [place] [facility] [address] [id number], [place] [address]- 2260 Feb, [facility] [place] [facility] [address] [id number], [place] [address] 8345 Feb, [facility] [place] [facility] [address] [id number] [place] [address]- 2284 Feb, [facility] [place] [facility] [address] [id number] [place] [address]- 7924 Feb, [facility] [place] [facility] [address] [id number] [place] [address]- 0996 Jan, [facility] [place] [facility] [address] [id number] [place] [address] Jan, [facility] [place] [facility] [address] [id number] [place] [address]- 8937 Jan, [facility] [place] [facility] [address] [id number] [place] [address]- 5200 Jan, [facility] [place] [facility] [address] [id number] [place] [address]- 5309 Jan, [facility] [place] [facility] [address] [id number] [place] [address]- 3987 Jan, [facility] [place] [facility] [address] [id number] [place] [address]- 4432 Jan, [facility] [place] [facility] [address] [id number] [place] [address]- 4960 Jan, [facility] [place] [facility] [address] [id number] [place] [address]- 6315 Jan, [facility] [place] [facility] [address] [id number] [place] [address]- 3625 Jan, [facility] [place] [facility] [address] [id number] [place] [address]- 1006 Jan, [facility] [place] [facility] [address] [id number] [place] [address]- 9501 Dec, [facility] [place] [facility] [address] [id number] [place] [address]- 9948 Dec, [facility] [place] [facility] [address] [id number] [place] [address]- 8978 Nov, [facility] [place] [facility] [address] [id number] [place] [address]- 4412 Nov, [facility] [place] [facility] [address] [id number] [place] [address]- 8084 Nov, [facility] [place] [facility] [address] [id number] [place] [address]- 2070 Nov, [facility] [place] [facility] [address] [id number] [place] [address]- 6486 Nov, [facility] [place] [facility] [address] [id number] [place] [address]- 6585 Nov, [facility] [place] [facility] [address] [id number] [place] [address]- 8486 Nov, [facility] [place] [facility] [address] [id number] [place] [address]- 6871 Oct, [facility] [place] [facility] [address] [id number] [place] [address]- 8251 Oct, [facility] [place] [facility] [address] [id number] [place] [address]- 9279 Oct, [facility] [place] [facility] [address] [id number] [place] [address]- 9978 Oct, [facility] [place] [facility] [address] [id number] [place] [address]- 9038 Sep, [facility] [place] [facility] [address] [id number] [place] [address]- 2939 Sep, [facility] [place] [facility] [address] [id number] [place] [address]- 5495 Sep, [facility] [place] [facility] [address] [id number] [place] [address]- 9912 Sep, [facility] [place] [facility] [address] [id number] [place] [address]- 0614 Sep, [facility] [place] [facility] [address] [id number] [place] [address]- 6532 Sep, [facility] [place] [facility] [address] [id number] [place] [address]- 2498 Sep, [facility] [place] [facility] [address] [id number] [place] [address]- 3033 Sep, [facility] [place] [facility] [address] [id number] [place] [address]- 2593 Sep, [facility] [place] [facility] [address] [id number] [place] [address]- 6550 Sep, [facility] [place] [facility] [address] [id number] [place] [address]- 1298 Sep, [facility] [place] [facility] [address] [id number] [place] [address]- 0500 Sep, [facility] [place] [facility] [address] [id number] [place] [address]- 5471 Sep, [facility] [place] [facility] [address] [id number] [place] [address]- 0907 Sep, [facility] [place] [facility] [address] [id number] [place] [address]- 3149 August, [facility] [place] [facility] [address] [id number] [place] [address]- 7033 August, [facility] [place] [facility] [address] [id number] [place] [address]- 2332 August, [facility] [place] [facility] [address] [id number] [place] [address]- 3651 August, [facility] [place] [facility] [address] [id number] [place] [address]- 3672 August, [facility] [place] [facility] [address] [id number] [place] [address]- 6328 August, [facility] [place] [facility] [address] [id number] [place] [address]- 9096 August, [facility] [place] [facility] [address] [id number] [place] [address]- 2006 August, [facility] [place] [facility] [address] [id number] [place] [address]- 3607 August, [facility] [place] [facility] [address] [id number] [place] [address]- 0386 August, [facility] [place] [facility] [address] [id number] [place] [address]- 2654 August, [facility] [place] [facility] [address] [id number] [place] [address]- 4731 August, [facility] [place] [facility] [address] [id number] [place] [address]- 1043 August, [facility] [place] [facility] [address] [id number] [place] [address]- 6409 August, [facility] [place] [facility] [address] [id number] [place] [address]- 9846 August, [facility] [place] [facility] [address] [id number] [place] [address]- 2072 August, [facility] [place] [facility] [address] [id number] [place] [address]- 4528 August, [facility] [place] [facility] [address] [id number] [place] [address]- 6460 August, [facility] [place] [facility] [address] [id number] [place] [address]- 4546 August, [facility] [place] [facility] [address] [id number] [place] [address]- 3845 Jul, [facility] [place] [facility] [address] [id number] [place] [address]- 7115 Jul, [facility] [place] [facility] [address] [id number] [place] [address]- 8486 Jul, [facility] [place] [facility] [address] [id number] [place] [address]- 3763 Jul, [facility] [place] [facility] [address] [id number] [place] [address]- 3746 Jun, [facility] [place] [facility] [address] [id number] [place] [address]- 6908 Jun, [facility] [place] [facility] [address] [id number] [place] [address]- 5776 Jun, [facility] [place] [facility] [address] [id number] [place] [address]- 0364 24 Jun, 2013 [facility] [place] [facility] [address] [id number] [place] [address]- 6605 Jun, [facility] [place] [facility] [address] [id number] [place] [address]- 3669 17 Jun, 2013 [facility] [place] [facility] [address] [id number] [place] [address]- 2865 Jun, [facility] [place] [facility] [address] [id number] [place] [address]- 2375 Jun, [facility] [place] [facility] [address] [id number] [place] [address]- 6479 Jun, [facility] [place] [facility] [address] [id number] [place] [address]- 6627 Jun, [facility] [place] [facility] [address] [id number] [place] [address]- 2548 May, [facility] [place] [facility] [address] [id number] [place] [address]- 6503 May, [facility] [place] [facility] [address] [id number] [place] [address]- 2440 May, [facility] [place] [facility] [address] [id number] [place] [address]- 6396 May, [facility] [place] [facility] [address] [id number] [place] [address]- 6746 May, [facility] [place] [facility] [address] [id number] [place] [address]- 9699 May, [facility] [place] [facility] [address] [id number] [place] [address]- 8716 May, [facility] [place] [facility] [address] [id number] [place] [address]- 4556 May, [facility] [place] [facility] [address] [id number] [place] [address]- 1066 May, [facility] [place] [facility] [address] [id number] [place] [address]- 4668 May, [facility] [place] [facility] [address] [id number] [place] [address]- 6119 May, [facility] [place] [facility] [address] [facility] [id number] [place] [address]- 6368 17 May, 2013 [facility] [place] [facility] [address] [facility] [id number] [place] [address]- 4549 May, [facility] [place] [facility] [address] [facility] [id number] [place] [address]- 4775 May, [facility] [place] [facility] [address] [facility] [id number] [place] [address]- 1661 May, [facility] [place] [facility] [address] [facility] [id number][place] [address]- 5259 May, [facility] [place] [facility] [address] [facility] [id number], [place] [address]- 5165 May, [facility] [place] [facility] [address] [facility] [id number] [place] [address]- 2265 Apr, [facility] [place] [facility] [address] [id number], [place] [address]- 8735 15 Apr, 2013 [facility] [place] [facility] [address] [facility] [id number], [place] [address]- 8846 15 Apr, 2013 [facility] [place] [facility] [address] [facility] [id number], [place] [address]- 0728 Apr, [facility] [address] [id number] [place] [address]- 0766 Apr, [facility] [address] [id number] [place] [address]- 8937 Apr, [facility] [address] [facility] [id number] [place] [address]- 5851 Apr, [facility] [address] [id number] [place] [address]- 7606 Mar, [facility] [address] [id number] [place] [address]- 1584 Mar, [facility] [address] [id number] [place] [address]- 6192 Mar, [facility] [address] [facility] [id number] [place] [address]- 9666 Mar, [facility] [address] [id number] [place] [address]- 7942 Mar, [facility] [address] [id number] [place] [address]- 3665 Mar, [facility] [address] [facility] [id number] [place] [address]- 1475 Mar, [facility] [address] [id number], [place] [address]- 8159 Mar, [facility] [place] [facility] [address] [id number], [place] [address]- 4100 Mar, [facility] [place] [facility] [address] [id number], [place] [address]- 7952 Mar, [facility] [place] [facility] [address] [facility] [id number], [place] [address]- 2919 Mar, [facility] [place] [facility] [address] [facility] [id number] [place] [address]- 0038 Feb, [facility] [place] [facility] [address] [id number] [place] [address]- 7291 22 Feb, 2013 [facility] [place] [facility] [address] [id number] [place] [address]- 3284 20 Feb, 2013 [facility] [place] [facility] [address] [id number] [place] [address]- 9156 20 Feb, 2013 [facility] [place] [facility] [address] [id number] [place] [address]- 1938 19 Feb, 2013 [facility] [place] [facility] [address] [id number] [place] [address]- 6147 19 Feb, 2013 [facility] [place] [facility] [address] [id number] [place] [address]- 8031 15 Feb, 2013 [facility] [place] [facility] [address] [id number] [place] [address]- 5504 14 Feb, 2013 [facility] [place] [facility] [address] [id number] [place] [address]- 9501 14 Feb, 2013 [facility] [place] [facility] [address] [id number] [place] [address]- 1329 13 Feb, 2013 [facility] [place] [facility] [address] [id number] [place] [address]- 4259 13 Feb, 2013 [facility] [place] [facility] [address] [id number] [place] [address]- 0686 12 Feb, 2013 [facility] [place] [facility] [address] [id number] [place] [address]- 2378 12 Feb, 2013 [facility] [place] [facility] [address] [id number] [place] [address]- 5855 11 Feb, 2013 [facility] [place] [facility] [address] [id number] [place] [address]- 5487 05 Feb, 2013 [facility] [place] [facility] [address] [id number] [place] [address]- 6116 05 Feb, 2013 [facility] [place] [facility] [address] [id number] [place] [address]- 8092 Jan, [facility] [place] [facility] [address] [id number] [place] [address]- 3236 Jan, [facility] [place] [facility] [address] [id number] [place] [address]- 0681 Jan, [facility] [place] [facility] [address] [id number] [place] [address]- 0499 Jan, [facility] [place] [facility] [address] [id number] [place] [address]- 1744 Jan, [facility] [place] [facility] [address] [id number] [place] [address]- 5219 Jan, [facility] [place] [facility] [address] [id number] [place] [address]- 7174 Jan, [facility] [place] [facility] [address] [id number] [place] [address]- 8767 Jan, [facility] [place] [facility] [address] [id number] [place] [address]- 7754 Jan, [facility] [place] [facility] [address] [id number] [place] [address]- 9006 27 Dec, 2012 [facility] [place] [facility] [address] [id number] [place] [address]- 6694 20 Dec, 2012 [facility] [place] [facility] [address] [id number], [place] [address]- 8781 19 Dec, 2012 [facility] [place] [facility] [address] [id number], [place] [address]- 4817 10 Dec, 2012 [facility] [place] [facility] [address] [id number] [place] [address]- 9620 04 Dec, 2012 [facility] [place] [facility] [address] [id number], [place] [address]- 1732 03 Dec, 2012 [facility] [place] [facility] [address] [id number] [place] [address]- 4459 Nov, [facility] [place] [facility] [address] [id number] [place] [address]- 5777 Nov, [facility] [place] [facility] [address] [id number] [place] [address]- 9141 Nov, [facility] [place] [facility] [address] [id number] [place] [address]- 4206 Nov, [facility] [place] [facility] [address] [id number] [place] [address]- 7201 Nov, [facility] [place] [facility] [address] [id number] [place] [address]- 6453 Nov, [facility] [place] [facility] [address] [id number] [place] [address]- 7020 Nov, [facility] [place] [facility] [address] [id number] [place] [address]- 1611 Nov, [facility] [place] [facility] [address] [id number] [place] [address]- 2086 Nov, [facility] [place] [facility] [address] [id number] [place] [address]- 2133 Nov, [facility] [place] [facility] [address] [id number] [place] [address] Oct, [facility] [place] [facility] [address] [id number] [place] [address] Oct, [facility] [place] [facility] [address] [id number] [place] [address] Oct, [facility] [place] [facility] [address] [id number] [place] [address] Oct, [facility] [place] [facility] [address] [id number] [place] [address] Oct, [facility] [place] [facility] [address] [id number] [place] [address] Oct, [facility] [place] [facility] [address] [id number] [place] [address] Oct, [facility] [place] [facility] [address] [id number] [place] [address] 2012 Oct, [facility] [address] [id number] [place] [address] Sep, [facility] [place] [facility] [address] [id number] [place] [address] Sep, [facility] [address] [id number] [place] [address] Sep, [facility] [address] [id number] [place] [address] Sep, [facility] [address] [id number] [place] [address] Sep, [facility] [address] [id number] [place] [address] Sep, [facility] [address] [id number] [place] [address] Sep, [facility] [address] [id number] [place] [address] Sep, [facility] [place] [facility] [address] [id number] [place] [address] August, [facility] [address] [id number] [place] [address] August, [facility] [address] [id number] [place] [address] August, [facility] [address] [id number] [place] [address] August, [facility] [place] [facility] [address] [id number] [place] [address] August, [facility] [address] [id number] [place] [address] Jul, [facility] [address] [id number] [place] [address] Jul, [facility] [address] [id number] [place] [address] Jul, [facility] [place] [facility] [address] [id number] [place] [address] Jul, [facility] [place] [facility] [address] [id number] [place] [address] Jul, [facility] [place] [facility] [address] [id number] [place] [address] Jun, [facility] [place] [facility] [address] [id number] [place] [address] 18 Jun, 2012 [facility] [place] [facility] [address] [id number] [place] [address]- [address] 15 Jun, 2012 [facility] [place] [facility] [address] [id number] [place] [address]- [address] 14 Jun, 2012 [facility] [place] [facility] [address] [id number] [place] [address] Jun, [facility] [place] [facility] [address] [id number] [place] [address] Jun, [facility] [place] [facility] [address] [id number] [place] [address] Jun, [facility] [place] [facility] [address] [id number] [place] [address] Jun, [facility] [place] [facility] [address] [id number] [place] [address] Jun, [facility] [place] [facility] [address] [id number] [place] [address] May, [facility] [place] [facility] [address] [id number] [place] [address]69 May, [facility] [place] [facility] [address] [id number] [place] [address] May, [facility] [place] [facility] [address] [id number] [place] [address] May, [facility] [address] [id number] [place] [address] Apr, [facility] [address] [id number] [place] [address] Apr, [facility] [address] [id number] [place] [address] Apr, [facility] [address] [id number] [place] [address] Apr, [facility] [address] [id number] [place] [address] Apr, [facility] [address] [id number] [place] [address] Apr, [facility] [address] [id number] [place] [address]- [address] Apr, [facility] [address] [id number] [place] [address] Mar, [facility] [address] [place] [id number] Mar, [facility] [address] [id number] [place] [address] Mar, [facility] [address] [id number] [place] [address] Mar, [facility] [address] [id number] [place] [address] Mar, [facility] [address] [id number] [place] [address] Mar, [facility] [address] [id number] [place] [address] Mar, [facility] [address] [id number] [place] [address]- [address] Mar, [facility] [place] [facility] [address] [id number] [place] [address] Mar, [facility] [place] [facility] [address] [id number] [place] [address] Mar, [facility] [place] [facility] [address] [id number] [place] [address] Mar, [facility] [place] [facility] [address] [id number] [place] [address] Mar, [facility] [place] [facility] [address] [id number] [place] [address]- [address] Mar, [facility] [place] [facility] [address] [id number] [place] [address] Mar, [facility] [address] [id number] [place] [address]- [address] Mar, [facility] [place] [facility] [address] [id number] [place] [address]- [address] Mar, [facility] [place] [facility] [address] [id number] [place] [address]- [address] Mar, [facility] [place] [facility] [address] [id number] [place] [address]- [address] Feb, [facility] [place] [facility] [address] [id number] [place] [address]- [address] Feb, [facility] [place] [facility] [address] [id number] [place] [address]- [address]478 Feb, [facility] [place] [facility] [address] [id number] [place] [address]- [address] Feb, [facility] [place] [facility] [address] [id number] [place] [address] Feb, [facility] [place] [facility] [address] [id number] [place] [address] 2004 Feb, [facility] [place] [facility] [address] [id number], [place] [address] Feb, [facility] [place] [facility] [address] [id number] [place] [address] 94[address] Feb, [facility] [place] [facility] [address] [id number][place] [address] Feb, [facility] [place] [facility] [address] [id number] [place] [address] 49[address] Feb, [facility] [place] [facility] [address] [id number], [place] [address] Feb, [facility] [place] [facility] [address] [id number] [place] [address] 1247 Feb, [facility] [place] [facility] [address] [id number] [place] [address] 4708 Feb, [facility] [place] [facility] [address] [id number][place] [address] Feb, [facility] [place] [facility] [address] [id number] [place] [address] 0[address] Feb, [facility] [place] [facility] [address] [id number][place] [address] 9585 Feb, [facility] [place] [facility] [address] [id number] [place] [address]- 7679 Jan, [facility] [place] [facility] [address] [id number][place] [address] Jan, [facility] [place] [facility] [address] [id number][place] [address] 6[address] Jan, [facility] [place] [facility] [address] [id number] [place] [address] 1430 Jan, [facility] [place] [facility] [address] [id number][place] [address] 7160 Jan, [facility] [place] [facility] [address] [id number] [place] [address]- 5[address] Jan, [facility] [place] [facility] [address] [id number] [place] [address] 6131 24 Jan, 2012 [facility] [place] [facility] [address] [id number] [place] [address] 4[address] 24 Jan, 2012 [facility] [place] [facility] [address] [id number] [place] [address] 7956 17 Jan, 2012 [facility] [place] [facility] [address] [id number] [place] [address]- 2959 17 Jan, 2012 [facility] [place] [facility] [address] [id number] [place] [address]- 9918 Jan, [facility] [place] [facility] [address] [id number] [place] [address]- 4942 Jan, [facility] [place] [facility] [address] [id number] [place] [address]- 5943 Jan, [facility] [place] [facility] [address] [id number] [place] [address]- 1427 Jan, [facility] [place] [facility] [address] [id number] [place] [address]248 08 Jan, 2012 [facility] [place] [facility] [address] [id number] [place] [address]- 6536 05 Jan, 2012 [facility] [place] [facility] [address] [id number] [place] [address]- 8769 04 Jan, 2012 [facility] [place] [facility] [address] [id number] [place] [address]- 4565 21 Dec, 2011 [facility] [place] [facility] [address] [id number] [place] [address] 3743 20 Sep, 2011 [facility] [place] [facility] [address] [id number] [place] [address] 9029 18 Sep, 2011 [facility] [place] [facility] [address] [id number] [place] [address]- 0517 18 Sep, 2011 [facility] [place] [facility] [address] [id number] [place] [address]- 8390 10 Dec, 2011 [facility] [place] [facility] [address] [id number] [place] [address]- 3686 10 Dec, 2011 [facility] [place] [facility] [address] [id number] [place] [address]- 3306 10 Dec, 2011 [facility] [place] [facility] [address] [id number] [place] [address] 5116 Dec, [facility] [place] [facility] [address] [id number] [place] [address] 4881 Nov, [facility] [place] [facility] [address] [id number] [place] [address] Nov, [facility] [place] [facility] [address] [id number] [place] [address]- 7535 Nov, [facility] [place] [facility] [address] [id number] [place] [address] 4016 Nov, [facility] [place] [facility] [address] [id number] [place] [address] 8762 Nov, [facility] [place] [facility] [address] [id number] [place] [address] 9042 Nov, [facility] [place] [facility] [address] [id number] [place] [address]- 9892 Oct, [facility] [place] [facility] [address] [id number] [place] [address]- 4113 Oct, [facility] [place] [facility] [address] [id number] [place] [address] 6418 Oct, [facility] [place] [facility] [address] [id number] [place] [address] 2542 Oct, [facility] [place] [facility] [address] [id number] [place] [address] 4613 Oct, [facility] [place] [facility] [address] [id number] [place] [address]- 7612 Oct, [facility] [place] [facility] [address] [id number] [place] [address]- 9999 Oct, [facility] [place] [facility] [address] [id number] [place] [address]- 3890 Sep, [facility] [place] [facility] [address] [id number] [place] [address] 8834 Sep, [facility] [place] [facility] [address] [id number] [place] [address]- 3554 Sep, [facility] [place] [facility] [address] [id number] [place] [address]- 8841 Sep, [facility] [place] [facility] [address] [id number] [place] [address]- 3725 Sep, [facility] [place] [facility] [address] [id number] [place] [address]- 1621 Sep, [facility] [address] [id number] [place] [address]- 5251 Sep, [facility] [place] [facility] [address] [id number] [place] [address] 2056 Sep, [facility] [place] [facility] [address] [id number] [place] [address]- 5873 Sep, [facility] [place] [facility] [address] [id number] [place] [address]- 3756 Sep, [facility] [place] [facility] [address] [id number] [place] [address] 9349 August, [facility] [place] [facility] [address] [id number] [place] [address]- 0926 August, [facility] [place] [facility] [address] [id number] [place] [address]- 2536 August, [facility] [place] [facility] [address] [id number] [place] [address]- 7564 August, [facility] [place] [facility] [address] [id number] [place] [address] August, [facility] [place] [facility] [address] [id number] [place] [address]- 9090 Jul, [facility] [place] [facility] [address] [id number] [place] [address]- 4395 Jul, [facility] [place] [facility] [address] [id number] [place] [address]- 3008 Jul, [facility] [place] [facility] [address] [id number] [place] [address]- 4738 Jul, [facility] [place] [facility] [address] [id number] [place] [address]- 1551 Jul, [facility] [place] [facility] [address] [id number] [place] [address]- 7168 Jul, [facility] [place] [facility] [address] [id number] [place] [address]- 1284 Jul, [facility] [place] [facility] [address] [id number] [place] [address]- 0570 Jun, [facility] [place] [facility] [address] [id number] [place] [address]- 4956 Jun, [facility] [place] [facility] [address] [id number] [place] [address]- [address] Jun, [facility] [place] [facility] [address] [id number] [place] [address]- 6769 Jun, [facility] [place] [facility] [address] [id number] [place] [address]- 1298 Jun, [facility] [place] [facility] [address] [id number] [place] [address] 1984 May, [facility] [place] [facility] [address] [id number] [place] [address]- 2396 May, [facility] [place] [facility] [address] [id number] [place] [address]- 8235 May, [facility] [place] [facility] [address] [id number] [place] [address]- 3253 May, [facility] [place] [facility] [address] [id number] [place] [address]- 2304 May, [facility] [place] [facility] [address] [id number] [place] [address]- 5612 May, [facility] [place] [facility] [address] [facility] [id number] [place] [address]- 6657 Apr, [facility] [place] [facility] [address] [id number] [place] [address]- 5965 Mar, [facility] [place] [facility] [address] [id number] [place] [address], [place] [address]- [address]131 Feb, [facility] [place] [facility] [address] [facility] [id number] [place] [address]- 0791 Feb, [facility] [place] [facility] [address] [facility] [id number] [place] [address]- 0553 Feb, [facility] [place] [facility] [address] [facility] [id number] [place] [address]- 3024 Feb, [facility] [place] [facility] [address] [facility] [id number] [place] [address]- 8343 Jan, [facility] [place] [facility] [address] [facility] [id number] [place] [address]- 8002 Jan, [facility] [place] [facility] [address] [facility] [id number], [place] [address]- 4547 Jan, [facility] [place] [facility] [address] [facility] [id number], [place] [address]- 3766 24 Jan, 2011 [facility] [place] [facility] [address] [id number] [place] [address]- 6755 14 Jan, 2011 [facility] [place] [facility] [address] [facility] [id number] [place] [address]- 3048 Dec, [facility] [place] [facility] [address] [facility] [id number] [place] [address]- 9297 Oct, [facility] [place] [facility] [address] [id number] [place] [address]- 3454 13 Aug, 2010 [facility] [address] [id number] [place] [address]- 7641 29 Mar, 2010 [facility] [place] [facility] [address] [id number] [place] [address]- 2546 27 Mar, 2010 [facility] [place] [facility] [address] [id number] [place] [address] 2546 16 Mar, 2010 [facility] [place] [facility] [address] [id number] [place] [address] 2548 15 Mar, 2010 [facility] [place] [facility] [address] [id number] [place] [address]- 9997 15 Mar, 2010 [facility] [place] [facility] [address] [id number] [place] [address]- 6160 08 Mar, 2010 [facility] [place] [facility] [address] [id number] [place] [address]- 1376 Mar, [facility] [place] [facility] [address] [id number] [place] [address]- 1867 24 Feb, 2010 [facility] [place] [facility] [address] [id number] [place] [address]- 6060 24 Feb, 2010 [facility] [place] [facility] [address] [facility] [id number] [place] [address]- 5018 15 Feb, 2010 [facility] [place] [facility] [address] [id number] [place] [address]- 5161 Jan, [facility] [place] [facility] [address] [id number] [place] [address] 2548 Jan, [facility] [place] [facility] [address] [id number] [place] [address]- 7226 Jan, [facility] [place] [facility] [address] [id number] [place] [address] 2547 Nov, [facility] [place] [facility] [address] [id number] [place] [address]- 4305 14 Sep, 2009 [facility] [place] [facility] [address] [id number], [place] [address]- 9968 August, [facility] [place] [facility] [address] [id number] [place] [address]- 4487 30 Mar, 2009 [facility] [place] [facility] [address] [id number] [place] [address]- 9265 Mar, [facility] [place] [facility] [address] [id number], [place] [address]- 4915 17 Feb, 2009 [facility] [place] [facility] [address] [id number] [place] [address]- 6030 Feb, [facility] [place] [facility] [address] [id number], [place] [address]- 0089 Feb, [facility] [place] [facility] [address] [facility] [id number] [place] [address]- 6127 Feb, [facility] [place] [facility] [address] [id number], [place] [address]- 1495 Feb, [facility] [place] [facility] [address] [id number], [place] [address]- 2882 27 Jan, 2009 [facility] [place] [facility] [address] [id number], [place] [address]- 6756 Jan, [facility] [place] [facility] [address] [id number], [place] [address]- 2454 Jan, [facility] [place] [facility] [address] [id number], [place] [address]- 4561 Jan, [facility] [place] [facility] [address] [id number], [place] [address]- 2279 Nov, [facility] [place] [facility] [address] [id number], [place] [address]- 2066 16 Sep, 2008 [facility] [place] [facility] [address] [id number], [place] [address]- 1420 August, [facility] [place] [facility] [address] [facility] [id number] [place] [address]- 5946 Jul, [facility] [place] [address] [facility] [id number] [place] [address]- 4048 May, IMMUNIZATIONS No Known Immunizations SOCIAL HISTORY Never Assessed REASON FOR VISIT requesting medication PLAN OF CARE VITAL SIGNS MEDICATIONS Medication Instructions Dosage Frequency Start Date End Date Duration Status Fluticasone Propionate 50 MCG/ACT Nasally 2 times a day 2 sprays in each nostril 12h 30 days Active RESULTS No Results PROCEDURES [...]
--- OUTSIDE RECORDS SUMMARY | 2018-01-01 13:08 | XMS REPORT ---
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 Active 13731048 Problem Colon polyp K63.5 Active 90032569 Problem Bilateral low back pain without sciatica M54.5 Active 457238977 Problem Screening breast examination Z12.39 Active 159829175 Problem Postmenopausal Z78.0 Active 38763696 Problem Osteopenia M85.80 Active 358843756 Problem Cigarette nicotine dependence without complication F17.210 Active 84601333 Problem Type 2 diabetes mellitus with diabetic peripheral angiopathy without gangrene E11.51 Active 086256454 Problem Vascular dementia without behavioral disturbance F01.50 Active [id number] Problem Unspecified atherosclerosis of [place] arteries of extremities, unspecified extremity I70.209 Active 296626779212275 Problem Arthritis M19.90 Active 1983446 Problem Chronic atrial fibrillation I48.2 Active 826065173 Problem Chronic obstructive pulmonary disease with acute lower respiratory infection J44.0 Active 212480265 Problem Other chronic pancreatitis K86.1 Active 785985040 Problem Stress incontinence of urine N39.3 Active 16370001 Problem Controlled type 2 diabetes mellitus without complication, without long -term current use of insulin E11.9 Active 305950268 Problem Unspecified psychosis F29 Active 54090242 Problem Xeroderma Q80.9 Active 50178261 Problem COPD (chronic obstructive pulmonary disease) J44.9 Active 47958898 Problem Dementia without behavioral disturbance, unspecified dementia type F03.90 Active 92270092 Problem Gastroparesis K31.84 Active 151902729 Problem Type 2 diabetes mellitus with diabetic neuropathy, without long-term current use of insulin E11.40 Active 35040416 Problem Osteoporosis M81.0 Active 94316843 Problem Atherosclerosis of [place] artery of both lower extremities with intermittent claudication I70.213 Active 062511686778922 Problem Hyperlipidemia E78.5 Active 17002693 Problem Diabetic polyneuropathy associated with type 2 diabetes mellitus E11.42 Active 66471840 Problem Essential tremor G25.0 Active 63873511 Problem Atherosclerotic heart disease of [place]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 I25.118 Active 7286460968871 Problem Generalized anxiety disorder F41.1 Active 611450836 Problem Gastroesophageal reflux disease, esophagitis presence not specified K21.9 Active 732258342 Problem Coronary artery disease involving [place] coronary artery of [place] heart with other form of angina pectoris I25.118 Active 0397141048202 Problem Postconcussion syndrome F07.81 Active 84064506 Problem Chronic pain syndrome G89.4 Active 804686258 Problem Migraine without aura and without status migrainosus, not intractable G43.009 Active 104865606 Problem Paroxysmal atrial fibrillation I48.0 Active 820817121 Problem Migraine without aura and with status migrainosus, not intractable G43.001 Active 724352632 Problem Cervicalgia M54.2 Active 6806264983234 Problem Acute exacerbation of chronic obstructive pulmonary disease (COPD) J44.1 Active 934019074 Problem Major depressive disorder, recurrent episode, moderate F33.1 Active 174758366 Problem Crohn''s disease without complication, unspecified gastrointestinal tract location K50.90 Active 08971012 Problem Chronic fatigue R53.82 Active 35517939 Problem Bipolar affective disorder, currently depressed, moderate F31.32 Active 516479912 ALLERGIES Substance Reaction Event Type Date Status Penicillin V Potassium rash Drug Allergy Apr, Active Neosporin rash Drug Allergy Apr, Active Ibuprofen rash Drug Allergy Apr, Active Glipizide hives, nausea Drug Allergy Apr, Active ENCOUNTERS Encounter Location Date Diagnosis [facility] [address] [facility] [id number] [address] Nov, [facility] [address] [facility] [id number] [place] [address] Oct, [facility] [address] [id number] [address] Sep, [facility] [address] [address] Sep, [facility] [address] [id number] [address] Sep, [facility] [address] [id number] [address] Sep, [facility] [id number] [place] [address] 10297[address] 7375 August, [facility] [address] [place] [address] 65144- 7935 August, [facility] [id number] [place] [address] 73903- 9071 August, Type 2 diabetes mellitus with diabetic neuropathy, without long-term current use of insulin E11.40 and Sprain of right ankle, unspecified ligament, initial encounter S93.401A [facility] [address], [place] [address] August, [facility] [id number] [place] [address] 33474- 7572 August, [facility] [address], [place] [address] August, [facility] [address], [place] [address] August, Gastroesophageal reflux disease, esophagitis presence not specified K21.9 [facility] [address], [place] [address] August, [facility] [address] [id number] [address] August, [facility] [address], [place] [address] August, [facility] [id number] [place] [address] 73967- 3036 August, Type 2 diabetes mellitus with diabetic neuropathy, without long-term current use of insulin E11.40 and Elevated liver enzymes R74.8 [facility] [id number] [place] [address] 97860- 0412 Jul, [facility] [id number] [place] [address] 79290- 8029 Jul, Cough R05 [facility] [id number] [place] [address] 89559- 0624 Jul, [facility] [id number] [place] [address] 99582- 5660 Jul, [facility] [id number] [place] [address] 73610- 6923 Jul, Bipolar affective disorder, currently depressed, moderate F31.32 ; Vascular dementia without behavioral disturbance F01.50 and Generalized anxiety disorder F41.1 [facility] [id number] [place] [address] 34907- 2889 Jul, [facility] [id number] [place] [address] 63506- 4912 Jul, Type 2 diabetes mellitus with diabetic neuropathy, without long-term current use of insulin E11.40 and Elevated liver enzymes R74.8 [facility] [id number] [place] [address] 46320- 4429 Jul, [facility] [id number] [place] [address] 97775- 8149 Jul, [facility] [id number] [place] [address] 35723- 7054 Jul, [facility] [id number] [place] [address] 45551- 3747 Jul, Post-menopausal Z78.0 [facility] [id number] [place] [address] 29096- 9240 Jul, Stress incontinence of urine N39.3 [facility] [id number] [place] [address] 34905- 1405 Jul, [facility] [id number] [place] [address] 98601- 9229 Jul, [facility] [id number] [place] [address] 03316- 9771 Jul, Stress incontinence of urine N39.[address] [facility] [id number] [place] [address] 19873- 4441 Jul, [facility] [id number] [place] [address] 60764- 2460 Jul, [facility] [id number] [place] [address] 20099- 9109 Jul, [facility] [id number] [place] [address] 83120- 6730 Jul, Gastroesophageal reflux disease, esophagitis presence not specified K21.9 [facility] [id number] [place] [address] 56663- 3418 Jun, Diabetic polyneuropathy associated with type 2 diabetes mellitus E11.42 [place] [id number] [place] [address] 73906- 6342 Jun, Diabetic polyneuropathy associated with type 2 diabetes mellitus E11.42 ; Coronary artery disease involving [place] coronary artery of [place] heart with other form of angina pectoris I25.118 and Paroxysmal atrial fibrillation I48.0 [facility] [id number] [place] [address] 33615- 8923 Jun, [facility] [id number] [place] [address] 46171- 5418 Jun, [facility] [id number] [place] [address] 90954- 2262 Jun, Gastroenteritis K52.9 [facility] [id number] [place] [address] 64951- 9186 Jun, Gastroenteritis K52.9 [facility] [address], [place] [address] Jun, [facility] [id number] [place] [address] 81927- 7928 Jun, [facility] [address] [place] [address] 37733- 9859 Jun, Sprain of right ankle, unspecified ligament, initial encounter S93.401A ; Type 2 diabetes mellitus with diabetic neuropathy, without long-term current use of insulin E11.40 ; Atherosclerosis of [place] artery of both lower extremities with intermittent claudication I70.213 ; Atherosclerotic heart disease of [place]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 I25.118 ; Chronic atrial fibrillation I48.2 and Crohn''s disease without complication, unspecified gastrointestinal tract location K50.90 [facility] [address], [place] [address] 17 Jun, 2017 Cough R05 and Chronic obstructive pulmonary disease with acute lower respiratory infection J44.0 [place] [address], [place] [address] 16 Jun, 2017 [facility] [id number] [place] [address] 81594- 3758 15 Jun, 2017 Coughing R05 ; Unspecified atherosclerosis of [place] arteries of extremities, unspecified extremity I70.209 ; Type 2 diabetes mellitus with diabetic peripheral angiopathy without gangrene E11.51 ; Crohn''s disease without complication, unspecified gastrointestinal tract location K50.90 ; Other chronic pancreatitis K86.1 and Chronic atrial fibrillation I48.2 [facility] [address], [place] [address] Jun, [facility] [id number] [place] [address] 37455- 9315 Jun, Bipolar affective disorder, currently depressed, moderate F31.32 ; Vascular dementia without behavioral disturbance F01.50 and Generalized anxiety disorder F41.1 [facility] [address] [place] [address] 06780- 0375 May, Generalized anxiety disorder F41.1 [facility] [id number] [place] [address] 83016- 9696 May, [facility] [id number] [place] [address] 20936- 7379 May, [facility] [id number] [place] [address] 77283- 1922 May, Coughing R05 [facility] [id number] [place] [address] 74756- 1582 May, [facility] [id number] [place] [address] 78123- 8035 May, Bipolar affective disorder, currently depressed, moderate F31.32 ; Vascular dementia without behavioral disturbance F01.50 and Generalized anxiety disorder F41.1 [facility] [id number] [place] [address] 31621- 2132 Apr, Generalized anxiety disorder F41.1 [facility] [id number] [place] [address] 13152- 0128 Apr, [facility] [id number] [place] [address] 67191- 3098 Apr, Vascular dementia without behavioral disturbance F01.50 ; Generalized anxiety disorder F41.1 and Bipolar affective disorder, currently depressed, moderate F31.32 [facility] [address] [place] [address] 35520- 1918 Apr, Generalized anxiety disorder F41.1 [facility] [id number] [place] [address] 90806 -1188 Apr, Cough R05 and Acute exacerbation of chronic obstructive pulmonary disease (COPD) J44.1 [facility] [address] [place] [address] 96483- 7597 Apr, [facility] [id number] [place] [address] 52519 -6367 31 Mar, 2017 Cough R05 and Cigarette nicotine dependence without complication F17.210 [place] [id number] [place] [address] 26367- 9266 Mar, [place] [address] 33487- 2657 Feb, Generalized anxiety disorder F41.1 ; Major depressive disorder, recurrent episode, moderate F33.1 ; Vascular dementia without behavioral disturbance F01.50 and Unspecified psychosis F29 [place] [id number] [place] [address] 24431- 2862 Feb, [place] [address] 67625- 6696 Feb, [place] [address] 04647- 2897 Feb, Generalized anxiety disorder F41.1 [place] [address] 01507- 9064 Feb, Generalized anxiety disorder F41.1 [place] [address] [place] [address] 96439- 6288 Feb, Dizziness R42 ; Chronic fatigue R53.82 ; Postconcussion syndrome F07.81 ; Fall, initial encounter W19.XXXA and Disorientation R41.0 [place] [address] 76040- 4786 Feb, Postconcussion syndrome F07.81 ; Injury of head, initial encounter S09.90XA ; Fall, initial encounter W19.XXXA ; Disorientation R41.0 and Acute cystitis with hematuria N30.01 [place] [address] 65687- 3971 30 Jan, 2017 Gastroesophageal reflux disease, esophagitis presence not specified K21.9 ; Post-menopausal Z78.0 and Migraine without aura and without status migrainosus, not intractable G43.009 [place] [address] [place] [address]- 4467 Jan, [facility] [id number] [place] [address] 00825- 2608 Jan, Generalized anxiety disorder F41.1 ; Major depressive disorder, recurrent episode, moderate F33.1 ; Vascular dementia without behavioral disturbance F01.50 and Unspecified psychosis F29 [place] [id number] [place] [address] 06760- 4107 Jan, Pneumonia of left lower lobe due to infectious organism J18.1 [facility] [id number] [place] [address] 64884- 6597 Jan, Migraine without aura and with status migrainosus, not intractable G43.001 [facility] [id number] [place] [address] 08870 -7024 Jan, Migraine without aura and without status migrainosus, not intractable G43.009 [facility] [address] [place] [address] 31733- 0019 Dec, Hematoma T14.8 [place] [id number] [place] [address] 25840- 7320 Dec, [facility] [id number] [place] [address] 47062 -4397 Nov, Fatigue, unspecified type R53.83 [place] [address] [place] [address] 20558- 6373 Nov, Scabies B86 and Coronary artery disease involving [place] coronary artery of [place] heart with other form of angina pectoris I25.118 [place] [id number] [place] [address] 97804- 6346 Nov, [place] [id number] [place] [address] 44180- 4252 Nov, [place] [address] [place] [address] 56910- 4116 Oct, [place] [id number] [place] [address] 01508- 5758 Oct, Generalized anxiety disorder F41.1 and Major depressive disorder, recurrent episode, moderate F33.1 [facility] [address] [place] [address] 62431- 9205 Oct, Cramp of both lower extremities R25.2 [facility] [address] [place] [address] 42482- 3820 Oct, Leg cramps R25.2 [facility] [address] [place] [address] 41861- 9479 Oct, Chronic pain syndrome G89.4 [place] [address] [place] [address] 21486- 0148 Oct, [facility] [address] [place] [address] 01917- 4735 Oct, [facility] [address] [place] [address] 61371- 5258 Oct, Routine gynecological examination Z01.419 and Screening for breast cancer Z12.31 [place] [address] [place] [address] 06694- 0453 Sep, Diarrhea R19.7 [facility] [address] [place] [address] 26445- 7743 Sep, Back pain M54.9 [facility] [id number] [place] [address] 96301- 0670 Sep, [facility] [id number] [place] [address] 09669- 6724 Sep, [facility] [id number] [place] [address] 79291 -5618 August, Xeroderma Q80.9 [facility] [id number] [place] [address] 57534- 0666 August, Dementia without behavioral disturbance, unspecified dementia type F03.90 [place] [id number] [place] [address] 46488- 5574 August, Chronic pain syndrome G89.4 [place] [address] [place] [address] 14327- 1438 August, [place] [address] 94677- 1992 August, Hyperlipidemia E78.5 ; Other fatigue R53.83 and Other specified hypotension I95.89 [facility] [address] 15156 -3518 August, Dysuria R30.0 ; Other fatigue R53.83 and Other specified hypotension I95.89 [place] [address] 39404- 3849 August, [place] [address] 57450- 0765 Jul, Pain in left knee M25.562 and Gastroenteritis K52.9 [place] [address] 34741- 3997 Jul, [place] [address] [place] [address] 65424- 8830 Jul, Diarrhea R19.7 [facility] [place] [address] [place] [address] 08384 -8203 Jul, Spider bite, accidental or unintentional, initial encounter T63.301A [place] [address] [place] [address] 40212- 3640 Jul, Primary osteoarthritis of right knee M17.11 and Arthritis M19.90 [place] [address] 47619- 0364 Jul, Generalized anxiety disorder F41.1 and Major depressive disorder, recurrent episode, moderate F33.1 [place] [address] 02658- 5000 Jul, Type 2 diabetes mellitus with diabetic polyneuropathy E11.42 and Temporal headache R51 [place] [address] 02366- 4722 Jul, Back pain M54.9 [place] [address] 08627- 5576 Jul, [place] [address] 29427- 2612 Jul, [place] [address] 55019- 5590 30 Jun, 2016 Nausea R11.0 [facility] [address] 06763 -0179 23 Jun, 2016 Acute suppurative otitis media of both ears without spontaneous rupture of tympanic membranes, recurrence not specified H66.003 and COPD exacerbation J44.1 [place] [address] 08657- 2648 Jun, Generalized anxiety disorder F41.1 [place] [address] 54963- 4983 16 Jun, 2016 [facility] [place] [address] 37490 -6373 Jun, [facility] [address] 23103 -4122 Jun, Shortness of breath R06.02 and COPD exacerbation J44.1 [place] [address] 90337- 6830 10 Jun, 2016 Eczema, unspecified type L30.9 [place] [address] 29701- 0552 09 Jun, 2016 [place] [address] 02972- 9238 May, [place] [address] [place] [address]- 1833 May, Muscle cramping R25.2 [place] [address] 80428- 7620 13 May, 2016 [facility] [address] 80822- 0880 Apr, Diarrhea R19.7 [facility] [address] 64231- 1320 Apr, [place] [address] 43668- 7368 Apr, Chronic pain syndrome G89.4 [place] [address] 11529- 1946 Apr, Cramp of both lower extremities R25.2 and Vascular dementia without behavioral disturbance F01.50 [place] [address] 73580- 1204 Apr, Type 2 diabetes mellitus with diabetic polyneuropathy E11.42 and Cigarette nicotine dependence without complication F17.210 [place] [address] 85335- 4869 Mar, Generalized anxiety disorder F41.1 [place] [address] 96063- 1432 Feb, Generalized anxiety disorder F41.1 and Major depressive disorder, recurrent episode, moderate F33.1 [place] [id number] [place] [address] 19639- 9002 Feb, [facility] [address] 86343 -2898 Feb, Dysuria R30.0 and Acute cystitis with hematuria N30.01 [place] [address] 81188- 1972 Jan, [facility] [address] 23762- 3028 Jan, [facility] [id number] [place] [address] 39464- 6879 Jan, [facility] [id number] [place] [address] 27245- 6888 11 Jan, 2016 [facility] [id number] [place] [phone] Jan, 2016 Wasp sting, accidental or unintentional, initial encounter [id number] [facility] [id number] [place] [phone] Jan, 2016 Encounter for immunization Z23 [place] [address] [phone] Jan, 2016 [facility] [address] [phone] Jan, [facility] [address] [id number] [place] [address] 29295- 0837 28 Dec, 2015 Generalized anxiety disorder F41.1 and Major depressive disorder, recurrent episode, moderate F33.1 [facility] [id number] [place] [address] 78007- 2893 21 Dec, 2015 Routine gynecological examination Z01.419 ; Postmenopausal Z78.0 ; Screening breast examination Z12.39 ; Osteopenia M85.80 and Breast cancer screening Z12.39 [facility] [id number] [place] [address] 53126- 2336 20 Dec, [address] [facility] [id number] [place] [address] 72081- 8930 19 Dec, 2015 [place] [address] 88607- 8216 16 Dec, 2015 [facility] [id number] [place] [address] 66651- 1683 16 Dec, 2015 [facility] [id number] [place] [address] 60400- 4712 Dec, [facility] [address], [place] [address] 228[address] Dec, [facility] [address], [place] [address] 6291 Nov, [facility] [id number] [address] Nov, Cough R05 ; Other viral agents as the cause of diseases classified elsewhere B97.89 and Acute upper respiratory infection, unspecified J06.9 [facility] [address], [place] [address] 6284 Nov, [facility] [address], [place] [address] 8162 Nov, [facility] [address], [place] [address] 8751 Nov, [facility] [address], [place] [address]- 4759 Nov, [facility] [address], [place] [address] 8319 Nov, [facility] [address], [place] [address]- 3759 Oct, [facility] [address], [place] [address] 3015 Oct, [facility] [address], [place] [address]- 3756 Oct, [facility] [id number], [place] [address]- 7402 Oct, Chronic pain syndrome G89.4 [facility] [address], [place] [address]- 7676 Sep, Generalized anxiety disorder F41.1 and Major depressive disorder, recurrent episode, moderate F33.1 [facility] [address], [place] [address]- 0206 Sep, [facility] [address] [place] [address] 38733- 6622 Sep, [facility] [id number] [place] [address] 40667- 7652 14 Sep, 2015 Generalized anxiety disorder F41.1 [facility] [id number] [place] [address] 71910- 1348 13 Sep, 2015 Cramp of both lower extremities R25.[address] [facility] [id number] [place] [address] 62392- 7428 06 Sep, 2015 Generalized anxiety disorder F41.1 [place] [id number] [place] [address] 37826- 4260 Sep, [facility] [id number] [place] [address] 52560 -5852 August, Rash R21 ; Itching L29.9 and Allergic response, subsequent encounter T78.40XD [facility] [id number] [place] [address] 34022- 7923 August, Primary insomnia F51.01 [facility] [id number] [place] [address] 25393 -6453 August, Rash R21 ; Itching L29.9 and Allergic response, initial encounter T78.40XA [facility] [id number] [place] [address] 28658- 6296 August, [facility] [id number] [place] [address] 97962- 0522 August, Cramp of both lower extremities R25.2 [facility] [id number] [place] [address] 07803- 3118 August, Back pain M54.9 [facility] [id number] [place] [address] 86458- 4286 August, [facility] [address], [place] [address]- 8907 August, [facility] [address], [place] [address]8360 August, Cramp of both lower extremities R25.2 [facility] [address], [place] [address]- 3543 August, [facility] [id number] [place] [address] 89984- 2956 August, Syncope R55 ; Paroxysmal atrial fibrillation I48.0 ; Dementia without behavioral disturbance, unspecified dementia type F03.90 and Chronic pain syndrome G89.4 [facility] [id number] [place] [address] 24430- 8171 August, Type 2 diabetes mellitus with diabetic polyneuropathy E11.[address] [facility] [id number] [place] [address] 70175- 2766 Jul, [facility] [id number] [place] [address] 02782- 3347 Jul, [facility] [id number] [place] [address] 63628- 2859 Jul, [facility] [address], [place] [address]- 5442 Jul, [facility] [id number] [place] [address] 26098- 8828 Jul, [facility] [id number] [place] [address] 75080- 4730 Jul, UTI (urinary tract infection) N39.0 [facility] [id number] [place] [address] 93275- 9628 Jul, [facility] [address], [place] [address]- 9138 Jul, Major depressive disorder, recurrent episode, moderate F33.1 and Generalized anxiety disorder F41.1 [place] [address], [place] [address]- 7448 14 Jul, 2015 Generalized anxiety disorder F41.1 [facility] [address], [place] [address]- 8016 14 Jul, [address] [facility] [address], [place] [address]- 1406 14 Jul, 2015 [facility] [address], [place] [address]- 3890 Jun, [facility] [address], [place] [address]- 2136 Jun, Eczema L30.9 [facility] [address], [place] [address]- 1815 Jun, [facility] [id number] [place] [address] 29849- 8351 Jun, COPD (chronic obstructive pulmonary disease) J44.9 [facility] [address], [place] [address]- 9095 Jun, [facility] [address], [place] [address]- 9338 Jun, Major depressive disorder, recurrent episode, moderate F33.1 and Generalized anxiety disorder F41.1 [facility] [address], [place] [address]- 0946 May, [facility] [address], [place] [address]- 5172 May, UTI (urinary tract infection) N39.0 [facility] [address], [place] [address]- 0901 [address] May, 2015 [facility] [address], [place] [address]- 2939 May, [facility] [address], [place] [address]- 3764 May, [facility] [address], [place] [address]- 4433 May, [facility] [id number] [place] [address] 66574- 9058 Apr, Major depressive disorder, recurrent episode, moderate F33.1 and Generalized anxiety disorder F41.1 [facility] [id number] [place] [address] 83674- 4733 Apr, COPD (chronic obstructive pulmonary disease) J44.9 [facility] [id number] [place] [address] 53434- 3752 Apr, [facility] [id number] [place] [address] 61956- 9818 Apr, Atrial flutter I48.92 [facility] [id number] [place] [address] 28852- 9002 Apr, [facility] [id number] [place] [address] 24534- 6677 Apr, [facility] [id number] [place] [address] 36102- 0153 Mar, [facility] [id number], [place] [address]- 5412 Mar, [facility] [id number] [place] [address] 01512- 4892 Mar, [facility] [id number] [place] [address] 08648- 4386 Mar, Hyperlipidemia E78.5 ; Type 2 diabetes mellitus with diabetic polyneuropathy E11.42 ; Major depressive disorder, recurrent episode, moderate F33.1 and Chronic pain syndrome G89.4 [facility] [address], [place] [address]- 8610 Mar, [facility] [id number] [place] [address] 54601- 6283 Mar, [facility] [address], [place] [address]- 2537 Mar, [facility] [id number] [place] [address] 03017- 9447 Mar, [facility] [id number] [place] [address] 18643- 5880 Feb, COPD (chronic obstructive pulmonary disease) J44.9 and Back pain M54.9 [facility] [address] [facility] [id number] [place] [address] 52474- 3254 Feb, [facility] [id number] [place] [address] 82666- 8878 Feb, [facility] [id number] [place] [address] 19945- 0432 Feb, [facility] [id number] [place] [address] 67607- 2528 Feb, [facility] [id number] [place] [address] 42549- 5127 Feb, [facility] [id number] [place] [address] 87985- 2230 Feb, [facility] [id number] [place] [address] 67169- 4017 Feb, [facility] [id number] [place] [address] 61998- 1669 Feb, [facility] [address], [place] [address]- 8504 Feb, Diabetes E11.9 ; Back pain M54.9 and COPD (chronic obstructive pulmonary disease) J44.9 [facility] [id number], [place] [address]- 3787 Jan, [facility] [address], [place] [address]- 3609 Jan, Major depression, recurrent F33.9 and Generalized anxiety disorder F41.1 [facility] [id number] [place] [address] 29627- 5377 Jan, Chronic pain G89.29 [facility] [id number] [place] [address] 98948- 1983 Jan, [facility] [id number] [place] [address] 84329- 1663 Jan, [facility] [id number] [place] [address] 63475- 9687 Jan, [facility] [id number] [place] [address] 77139- 5633 Jan, [facility] [id number] [place] [address] 18835- 5133 Jan, Nicotine dependence F17.200 [facility] [address] 56564- 3270 Jan, Nicotine dependence F17.200 and Back pain M54.9 [facility] [id number] [place] [address] 56031- 2758 Jan, [facility] [id number] [place] [address] 59412- 6390 28 Dec, 2014 [facility] [id number] [place] [address] 57437- 5189 25 Dec, 2014 Anxiety, generalized 300.02 and Major depression, recurrent 296.30 [facility] [id number] [place] [address] 15144- 7028 24 Sep, 2014 [facility] [id number] [place] [address] 63065- 5917 21 Dec, 2014 [facility] [id number] [place] [address] 27922- 2790 17 Dec, 2014 [facility] [id number] [place] [address] 47085- 3300 15 Dec, 2014 [facility] [address], [place] [address]- 0448 14 Dec, 2014 [facility] [address] [place] [address] 12373 2546 11 Dec, 2014 [facility] [address], [place] [address] 2546 10 Dec, 2014 [facility] [id number] [place] [address] 58666 254 08 Dec, [address] [facility] [address] [place] [address] 21434 2545 08 Dec, 2014 Routine gynecological examination V72.31 ; Breast cancer screening V76.10 and Family history of breast cancer in first degree relative V16.3 [facility] [address] [place] [address] 75652- 3654 03 Dec, 2014 [facility] [id number] [place] [address] 45267- 1833 Dec, [facility] [id number] [place] [address] 26169- 8870 Nov, [facility] [id number] [place] [address] 73249- 5217 Nov, [facility] [id number] [place] [address] 88917- 5237 Nov, Poor balance 781.99 and Vascular dementia, uncomplicated 290.40 [facility] [address], [place] [address]- 3786 Nov, [facility] [id number] [place] [address] 79961- 8144 Nov, Major depression, recurrent 296.30 and Anxiety, generalized 300.02 [facility] [address], [place] [address]- 2549 Nov, [facility] [id number] [place] [address] 59729- 0871 Nov, [facility] [address], [place] [address]- 8393 Nov, [facility] [address], [place] [address]- 2227 Nov, [facility] [address], [place] [address]- 8188 Nov, Vascular dementia, uncomplicated 290.[address] [facility] [id number], [place] [address]- 9091 Nov, [facility] [id number] [place] [address] 35384- 3802 Nov, [facility] [id number] [place] [address] 58537- 6773 Nov, [facility] [id number] [place] [address] 04678- 7902 Oct, [facility] [address], [place] [address]- 9209 Oct, [facility] [id number] [place] [address] 97513- 7752 Oct, [facility] [address], [place] [address]- 5288 Oct, COPD (chronic obstructive pulmonary disease) [address] [facility] [address], [place] [address]- 5730 Oct, Major depression, recurrent 296.30 and Anxiety, generalized 300.02 [facility] [address], [place] [address]- 5471 Oct, [facility] [address], [place] [address]- 6536 Oct, [facility] [address], [place] [address]- 6074 Oct, [facility] [address], [place] [address]- 3592 Sep, Lumbago 724.2 and Anxiety state, unspecified 300.00 [facility] [id number] [address]- 1127 Sep, [facility] [id number] [address]- 6771 Sep, [facility] [id number] [place] [address] 95876- 0692 August, [facility] [id number] [place] [address] 00985- 5626 August, Major depression, recurrent 296.30 ; Anxiety, generalized 300.02 and No condition on [place] II V71.09 [facility] [id number] [address]- 3149 August, [facility] [id number] [place] [address] 07607- 3799 August, [facility] [address], [place] [address]- 9219 Jul, [facility] [address], [place] [address]- 0358 Jul, [facility] [address], [place] [address]- [address] Jul, [facility] [address], [place] [address]- 4108 Jun, [facility] [address], [place] [address]- 9438 Jun, [facility] [id number] [address]- 8926 Jun, [facility] [address], [place] [address]- 3246 Jun, [facility] [id number] [place] [address], [place] [address]- 7618 26 Jun, 2014 [facility] [place] [facility] [address] [id number] [place] [address]- 1820 Jun, [facility] [place] [facility] [address] [id number] [place] [address]- 0281 Jun, [facility] [place] [facility] [address] [id number] [place] [address]- 8516 17 Jun, 2014 [facility] [place] [facility] [address] [id number] [place] [address]- 3774 Jun, [facility] [place] [facility] [address] [id number] [place] [address]- 9663 Jun, [facility] [place] [facility] [address] [id number] [place] [address]- 0130 Jun, 2014 [facility] [place] [facility] [address] [id number] [place] [address]- 3103 Jun, 2014 [facility] [place] [facility] [address] [id number] [place] [address]- 6393 Jun, [facility] [place] [facility] [address] [id number] [place] [address]- 1509 Jun, [facility] [place] [facility] [address] [id number] [place] [address]- 9598 Jun, [facility] [place] [facility] [address] [id number] [place] [address]- 4579 Jun, [facility] [place] [facility] [address] [id number] [place] [address]- 6442 May, 2014 [facility] [place] [facility] [address] [id number] [place] [address]- 9362 May, 2014 [facility] [place] [facility] [address] [id number] [place] [address]- 6276 May, [facility] [place] [facility] [address] [id number] [place] [address] May, 2014 [facility] [place] [facility] [address] [id number] [place] [address] May, 2014 [facility] [place] [facility] [address] [id number] [place] [address] May, 2014 [facility] [place] [facility] [address] [id number] [place] [address] May, 2014 [facility] [place] [facility] [address] [id number] [place] [address] May, 2014 [facility] [place] [facility] [address] [id number] [place] [address] May, 2014 [facility] [place] [facility] [address] [id number] [place] [address] May, 2014 [facility] [place] [facility] [address] [id number] [place] [address] May, 2014 [facility] [place] [facility] [address] [id number] [place] [address] May, 2014 [facility] [place] [facility] [address] [id number] [place] [address] May, [facility] [place] [facility] [address] [id number] [place] [address] May, [facility] [place] [facility] [address] [id number] [place] [address] Apr, [facility] [place] [facility] [address] [id number] [place] [address] Apr, [facility] [place] [facility] [address] [id number] [place] [address] Apr, [facility] [place] [facility] [address] [id number] [place] [address] Apr, [facility] [place] [facility] [address] [id number] [place] [address] Apr, [facility] [place] [facility] [address] [id number] [place] [address] Apr, [facility] [address] [id number] [place] [address] Apr, [facility] [place] [facility] [address] [id number] [place] [address] Apr, [facility] [address] [id number] [place] [address] Apr, [facility] [place] [facility] [address] [id number] [place] [address] Apr, [facility] [address] [id number] [place] [address] Apr, [facility] [address] [id number] [place] [address] Apr, [facility] [address] [id number] [place] [address] Mar, [facility] [address] [id number] [place] [address] 31 Mar, 2014 [facility] [address] [id number] [place] [address] 30 Mar, 2014 [facility] [address] [id number] [place] [address] 30 Mar, 2014 [facility] [place] [facility] [address] [id number] [place] [address] 29 Mar, 2014 [facility] [place] [facility] [address] [id number] [place] [address] 29 Mar, 2014 [facility] [place] [facility] [address] [id number] [place] [address] 19 Mar, 2014 [facility] [place] [facility] [address] [id number] [place] [address] 19 Mar, 2014 [facility] [place] [facility] [address] [id number] [place] [address] Mar, [facility] [place] [facility] [address] [id number] [place] [address] Mar, [facility] [place] [facility] [address] [id number] [place] [address] Mar, [facility] [place] [facility] [address] [id number] [place] [address] Mar, [facility] [place] [facility] [address] [id number] [place] [address] Mar, [facility] [place] [facility] [address] [id number] [place] [address] Mar, [facility] [place] [facility] [address] [id number] [place] [address] Mar, [facility] [place] [facility] [address] [id number] [place] [address] Mar, [facility] [place] [facility] [address] [id number] [place] [address] Mar, [facility] [place] [facility] [address] [id number] [place] [address] 4[address] Mar, [facility] [place] [facility] [address] [id number] [place] [address] 2477 Mar, [facility] [place] [facility] [address] [id number] [place] [address] 5409 Mar, [facility] [place] [facility] [address] [id number], [place] [address] Feb, [facility] [place] [facility] [address] [id number] [place] [address] 2700 Feb, [facility] [place] [facility] [address] [id number] [place] [address] 6495 Feb, [facility] [place] [facility] [address] [id number] [place] [address]- 0998 Feb, [facility] [place] [facility] [address] [id number], [place] [address] 26[address] Feb, [facility] [place] [facility] [address] [id number] [place] [address] 9363 Feb, [facility] [place] [facility] [address] [id number], [place] [address] Feb, [facility] [place] [facility] [address] [facility] [id number] [place] [address] 8621 Feb, [facility] [place] [facility] [address] [id number] [place] [address] 2219 Feb, [facility] [place] [facility] [address] [facility] [id number] [place] [address]- 8777 Feb, [facility] [place] [facility] [address] [facility] [id number] [place] [address]- 8503 Feb, [facility] [place] [facility] [address] [facility] [id number], [place] [address] 4934 Feb, [facility] [place] [facility] [address] [id number], [place] [address]- 1119 Feb, [facility] [place] [facility] [address] [facility] [id number][place] [address]- 4128 Feb, [facility] [place] [facility] [address] [facility] [id number], [place] [address]- 2348 Feb, [facility] [place] [facility] [address] [facility] [id number], [place] [address]- 3282 Feb, [facility] [place] [facility] [address] [id number], [place] [address]- 5146 Feb, [facility] [place] [facility] [address] [id number], [place] [address]- 8570 Jan, [facility] [place] [facility] [address] [facility] [id number], [place] [address]- 4198 Jan, [facility] [place] [facility] [address] [facility] [id number][place] [address]- 1464 Jan, [facility] [place] [facility] [address] [id number] [place] [address] Jan, [facility] [place] [facility] [address] [id number] [place] [address] Jan, [facility] [place] [facility] [address] [id number] [place] [address] Jan, [facility] [place] [facility] [address] [id number] [place] [address]- 4488 Jan, [facility] [place] [facility] [address] [id number] [place] [address] Jan, [facility] [place] [facility] [address] [id number] [place] [address]- 3289 Jan, [facility] [place] [facility] [address] [id number] [place] [address]- 9515 Jan, [facility] [place] [facility] [address] [id number] [place] [address]- 4911 Jan, [facility] [place] [facility] [address] [id number] [place] [address]- 8822 Dec, [facility] [place] [facility] [address] [id number] [place] [address]- 8119 Dec, [facility] [place] [facility] [address] [id number] [place] [address]- 6742 Nov, [facility] [place] [facility] [address] [id number] [place] [address]- 3917 Nov, [facility] [place] [facility] [address] [id number] [place] [address]- 9906 Nov, [facility] [place] [facility] [address] [id number] [place] [address]- 3562 Nov, [facility] [place] [facility] [address] [id number] [place] [address]- 3562 Nov, [facility] [place] [facility] [address] [id number] [place] [address]- 9549 Nov, [facility] [place] [facility] [address] [id number] [place] [address]- 4288 Nov, [facility] [place] [facility] [address] [id number] [place] [address]- 1385 Oct, [facility] [place] [facility] [address] [id number] [place] [address]- 4516 Oct, [facility] [place] [facility] [address] [id number] [place] [address]- 8132 Oct, [facility] [place] [facility] [address] [id number] [place] [address]- 6347 Oct, [facility] [place] [facility] [address] [id number] [place] [address]- 0221 Sep, [facility] [place] [facility] [address] [id number] [place] [address]- 4267 Sep, [facility] [place] [facility] [address] [id number] [place] [address]- 1139 Sep, [facility] [place] [facility] [address] [id number] [place] [address]- 2145 Sep, [facility] [place] [facility] [address] [id number] [place] [address]- 2721 Sep, [facility] [place] [facility] [address] [id number] [place] [address]- 2150 Sep, [facility] [place] [facility] [address] [id number], [place] [address]- 6440 Sep, [facility] [place] [facility] [address] [id number] [place] [address]- 3194 Sep, [facility] [place] [facility] [address] [id number] [place] [address]- 1768 Sep, [facility] [place] [facility] [address] [id number] [place] [address]- 5206 Sep, [facility] [place] [facility] [address] [id number] [place] [address]- 5526 Sep, [facility] [place] [facility] [address] [id number] [place] [address]- 5375 Sep, [facility] [place] [facility] [address] [id number] [place] [address]- 7008 Sep, [facility] [place] [facility] [address] [id number] [place] [address]- 5008 Sep, [facility] [place] [facility] [address] [id number] [place] [address]- 2758 August, [facility] [place] [facility] [address] [id number] [place] [address]- 3023 August, [facility] [place] [facility] [address] [id number] [place] [address]- 5440 August, [facility] [place] [facility] [address] [id number] [place] [address]- 7017 August, [facility] [place] [facility] [address] [id number] [place] [address]- 0691 August, [facility] [place] [facility] [address] [id number] [place] [address]- 5067 August, [facility] [place] [facility] [address] [id number] [place] [address]- 1987 August, [facility] [place] [facility] [address] [id number] [place] [address]- 6244 August, [facility] [place] [facility] [address] [id number] [place] [address]- 1584 August, [facility] [place] [facility] [address] [id number] [place] [address]- 1568 August, [facility] [place] [facility] [address] [id number] [place] [address]- 6246 August, [facility] [place] [facility] [address] [id number] [place] [address] August, [facility] [place] [facility] [address] [id number] [place] [address]- 2930 August, [facility] [place] [facility] [address] [id number] [place] [address]- 6642 August, [facility] [place] [facility] [address] [id number] [place] [address]- 2683 August, [facility] [place] [facility] [address] [id number] [place] [address]- 8689 August, [facility] [address] [id number] [place] [address]- 0085 August, [facility] [place] [facility] [address] [id number] [place] [address]- 0287 August, [facility] [address] [id number] [place] [address]- 3620 August, [facility] [address] [id number] [place] [address]- 9771 Jul, [facility] [place] [facility] [address] [id number] [place] [address]- 4607 Jul, [facility] [place] [facility] [address] [id number] [place] [address]- 7406 Jul, [facility] [place] [facility] [address] [id number] [place] [address]- 5599 Jul, [facility] [place] [facility] [address] [id number] [place] [address]- 3586 Jun, [facility] [place] [facility] [address] [id number] [place] [address]- 1205 Jun, [facility] [place] [facility] [address] [id number] [place] [address]- 7011 Jun, [facility] [place] [facility] [address] [id number] [place] [address]- 4918 Jun, [facility] [place] [facility] [address] [id number] [place] [address]- 5829 17 Jun, 2013 [facility] [place] [facility] [address] [id number] [place] [address]- 3326 17 Jun, 2013 [facility] [place] [facility] [address] [id number] [place] [address]- 1074 Jun, [facility] [place] [facility] [address] [facility] [id number] [place] [address]- 1251 Jun, [facility] [place] [facility] [address] [id number] [place] [address]- 7049 Jun, [facility] [place] [facility] [address] [id number] [place] [address]- 2123 Jun, [facility] [place] [facility] [address] [facility] [id number] [place] [address]- 6308 May, [facility] [place] [facility] [address] [facility] [id number] [place] [address]- 4171 May, [facility] [place] [facility] [address] [facility] [id number] [place] [address]- 2383 May, [facility] [place] [facility] [address] [facility] [id number] [place] [address]- 4094 May, [facility] [place] [facility] [address] [facility] [id number] [place] [address]- 9760 May, [facility] [place] [facility] [address] [facility] [id number] [place] [address]- 8955 May, [facility] [place] [facility] [address] [facility] [id number] [place] [address]- 0273 20 May, 2013 [facility] [place] [facility] [address] [facility] [id number] [place] [address]- 6494 May, [facility] [place] [facility] [address] [facility] [id number] [place] [address]- 3341 May, [facility] [place] [facility] [address] [facility] [id number] [place] [address]- 2726 18 May, 2013 [facility] [place] [facility] [address] [id number] [place] [address]- 9664 18 May, 2013 [facility] [place] [facility] [address] [id number] [place] [address]- 1136 May, [facility] [place] [facility] [address] [id number] [place] [address]- 2426 May, [facility] [place] [facility] [address] [id number] [place] [address]- 1369 May, [facility] [place] [facility] [address] [id number] [place] [address]- 8764 May, [facility] [place] [facility] [address] [id number] [place] [address]- 3173 May, [facility] [place] [facility] [address] [id number] [place] [address]- 8286 May, [facility] [place] [facility] [address] [id number] [place] [address]- 0732 Apr, [facility] [place] [facility] [address] [id number] [place] [address]- 4771 Apr, [facility] [place] [facility] [address] [id number] [place] [address]- 5736 Apr, [facility] [place] [facility] [address] [id number] [place] [address]- 4672 Apr, [facility] [place] [facility] [address] [id number], [place] [address]- 7312 Apr, [facility] [place] [facility] [address] [id number] [place] [address]- 9071 Apr, [facility] [place] [facility] [address] [id number] [place] [address]- 3040 Apr, [facility] [place] [facility] [address] [id number] [place] [address]- 0303 Mar, [facility] [place] [facility] [address] [id number] [place] [address]- 1685 Mar, [facility] [address] [id number] [place] [address]- 0146 Mar, [facility] [address] [id number] [place] [address]- 8696 Mar, [facility] [address] [id number] [place] [address]- 3164 Mar, [facility] [address] [id number] [place] [address]- 4916 Mar, [facility] [address] [id number] [place] [address]- 9938 Mar, [facility] [address] [id number] [place] [address]- 5178 Mar, [facility] [address] [id number] [place] [address]- 8274 Mar, [facility] [address] [id number] [place] [address]- 1389 Mar, [facility] [address] [id number] [place] [address]- 5943 Mar, [facility] [address] [id number] [place] [address]- 7160 Feb, [facility] [address] [id number] [place] [address]- 1071 Feb, [facility] [place] [facility] [address] [id number] [place] [address]- 4964 Feb, [facility] [place] [facility] [address] [id number] [place] [address]- 6740 Feb, [facility] [place] [facility] [address] [id number] [place] [address]- 6628 Feb, [facility] [place] [facility] [address] [id number] [place] [address]- 7874 Feb, [facility] [place] [facility] [address] [id number] [place] [address]- 7857 15 Feb, 2013 [facility] [place] [facility] [address] [id number] [place] [address]- 7653 14 Feb, 2013 [facility] [place] [facility] [address] [id number] [place] [address]- 1521 14 Feb, 2013 [facility] [place] [facility] [address] [id number] [place] [address]- 8945 Feb, [facility] [place] [facility] [address] [id number] [place] [address]- 9602 Feb, [facility] [place] [facility] [address] [id number] [place] [address]- 9760 Feb, [facility] [place] [facility] [address] [id number] [place] [address]- 0320 Feb, [facility] [place] [facility] [address] [id number] [place] [address]- 0788 Feb, [facility] [place] [facility] [address] [id number] [place] [address]- 5532 Feb, [facility] [place] [facility] [address] [id number] [place] [address]- 5312 Feb, [facility] [place] [facility] [address] [id number] [place] [address]- 1347 Jan, [facility] [place] [facility] [address] [id number], [place] [address]- 8347 Jan, [facility] [place] [facility] [address] [id number] [place] [address]- 4698 Jan, [facility] [place] [facility] [address] [id number] [place] [address]- 5058 Jan, [facility] [place] [facility] [address] [id number], [place] [address]- 5297 Jan, [facility] [place] [facility] [address] [id number], [place] [address]- 7679 Jan, [facility] [place] [facility] [address] [id number] [place] [address]- 0699 Jan, [facility] [place] [facility] [address] [id number] [place] [address]- 8316 Jan, [facility] [place] [facility] [address] [id number] [place] [address]- 9696 Jan, [facility] [place] [facility] [address] [id number] [place] [address]- 8503 27 Dec, 2012 [facility] [place] [facility] [address] [id number] [place] [address]- 8002 Dec, [facility] [place] [facility] [address] [id number] [place] [address]- 1872 Dec, [facility] [place] [facility] [address] [id number] [place] [address]- 1019 Dec, [facility] [place] [facility] [address] [id number] [place] [address]- 6286 Dec, [facility] [place] [facility] [address] [id number] [place] [address]- 1807 Dec, [facility] [place] [facility] [address] [id number] [place] [address]- 0988 Nov, [facility] [place] [facility] [address] [id number] [place] [address]- 7118 Nov, [facility] [place] [facility] [address] [id number] [place] [address]- 4089 Nov, [facility] [place] [facility] [address] [id number] [place] [address]- 6967 Nov, [facility] [place] [facility] [address] [id number] [place] [address]- 7406 Nov, [facility] [place] [facility] [address] [id number] [place] [address]- 4766 Nov, [facility] [place] [facility] [address] [id number] [place] [address]- 1851 15 Nov, 2012 [facility] [address] [id number] [place] [address]- 3747 15 Nov, 2012 [facility] [place] [facility] [address] [id number] [place] [address]- 3623 14 Nov, 2012 [facility] [address] [id number] [place] [address]- 5339 07 Nov, 2012 [facility] [place] [facility] [address] [id number] [place] [address]- 2485 Oct, [facility] [address] [id number] [place] [address]- 4552 Oct, [facility] [address] [id number] [place] [address]- 1696 Oct, [facility] [address] [id number] [place] [address]- 3789 Oct, [facility] [address] [id number] [place] [address]- 1417 Oct, [facility] [place] [facility] [address] [id number] [place] [address]- 2343 Oct, [facility] [address] [id number] [place] [address]- 6414 Oct, [facility] [place] [facility] [address] [id number] [place] [address]- 0487 Oct, [facility] [place] [facility] [address] [id number] [place] [address]- 0740 Sep, [facility] [place] [facility] [address] [id number] [place] [address]- 9815 Sep, [facility] [place] [facility] [address] [id number] [place] [address]- 9710 Sep, [facility] [place] [facility] [address] [id number] [place] [address]- 0655 Sep, [facility] [address] [id number] [place] [address]- 5857 Sep, [facility] [place] [facility] [address] [id number] [place] [address]- 4457 Sep, [facility] [place] [facility] [address] [id number] [place] [address]- 9918 Sep, [facility] [place] [facility] [address] [id number] [place] [address]- 4875 Sep, [facility] [address] [id number] [place] [address]- 0590 August, [facility] [place] [facility] [address] [id number] [place] [address]- 7855 August, [facility] [place] [facility] [address] [id number] [place] [address]- 3550 August, [facility] [address] [id number] [place] [address]- 7154 August, [facility] [place] [facility] [address] [id number] [place] [address]- 2195 August, [facility] [place] [facility] [address] [id number] [place] [address] Jul, [facility] [place] [facility] [address] [id number] [place] [address] Jul, [facility] [place] [facility] [address] [id number] [place] [address] Jul, [facility] [place] [facility] [address] [id number] [place] [address] Jul, [facility] [place] [facility] [address] [id number] [place] [address] Jul, [facility] [place] [facility] [address] [id number] [place] [address] Jun, [facility] [place] [facility] [address] [id number] [place] [address] 18 Jun, 2012 [facility] [address] [id number] [place] [address] 15 Jun, 2012 [facility] [address] [id number] [place] [address] 14 Jun, 2012 [facility] [address] [id number] [place] [address] 12 Jun, 2012 [facility] [address] [id number] [place] [address] 08 Jun, 2012 [facility] [address] [id number] [place] [address] 08 Jun, 2012 [facility] [address] [id number] [place] [address] 02 Jun, 2012 [facility] [address] [id number] [place] [address] Jun, [facility] [address] [id number] [place] [address] 27 May, 2012 [facility] [address] [id number] [place] [address] 25 May, 2012 [facility] [address] [id number] [place] [address] May, [facility] [address] [id number] [place] [address] 12 May, 2012 [facility] [address] [id number] [place] [address] 15 Apr, 2012 [facility] [place] [facility] [address] [id number] [place] [address] 09 Apr, 2012 [facility] [place] [facility] [address] [id number] [place] [address] Apr, [facility] [place] [facility] [address] [id number] [place] [address] Apr, [facility] [address] [id number] [place] [address] Apr, [facility] [address] [id number] [place] [address] Apr, [facility] [address] [id number] [place] [address] Apr, [facility] [address] [id number] [place] [address] Mar, [facility] [place] [id number] Mar, [facility] [address] [id number] [place] [address] Mar, [facility] [address] [id number] [place] [address] Mar, [facility] [address] [id number] [place] [address] Mar, [facility] [address] [id number] [place] [address] Mar, [facility] [address] [id number] [place] [address] Mar, [facility] [address] [id number] [place] Mar, [facility] [address] [id number] [place] [address] Mar, [facility] [address] [id number] [place] [address] Mar, [facility] [address] [id number] [place] [address] Mar, [facility] [address] [id number] [place] [address] Mar, [facility] [address] [id number] [place] [address] Mar, [facility] [place] [facility] [address] [id number] [place] [address] Mar, [facility] [place] [facility] [address] [id number] [place] [address] Mar, [facility] [place] [facility] [address] [id number] [place] [address] Mar, [facility] [place] [facility] [address] [id number] [place] [address] Mar, [facility] [place] [facility] [address] [id number] [place] [address] Feb, [facility] [place] [facility] [address] [id number] [place] [address] Feb, [facility] [place] [facility] [address] [id number] [place] [address] Feb, [facility] [place] [facility] [address] [id number] [place] [address] Feb, [facility] [place] [facility] [address] [id number] [place] [address] Feb, [facility] [place] [facility] [address] [id number] [place] [address] Feb, [facility] [place] [facility] [address] [id number], [place] [address] Feb, [facility] [place] [facility] [address] [id number] [address] Feb, [facility] [place] [facility] [address] [id number] [place] [address] Feb, [facility] [place] [facility] [address] [id number] [place] [address] Feb, [facility] [place] [facility] [address] [id number] [place] [address] Feb, [facility] [place] [facility] [address] [id number] [place] [address]- [address] Feb, [facility] [place] [facility] [address] [id number] [place] [address]- 39[address] Feb, [facility] [place] [facility] [address] [id number] [place] [address] Feb, [facility] [place] [facility] [address] [facility] [id number] [place] [address] Feb, [facility] [place] [facility] [address] [id number] [place] [address] Feb, [facility] [place] [facility] [address] [id number] [place] [address] Jan, [facility] [place] [facility] [address] [id number] [place] [address] Jan, [facility] [place] [facility] [address] [facility] [id number] [place] [address]- [address] Jan, [facility] [place] [facility] [address] [id number] [place] [address] Jan, [facility] [place] [facility] [address] [id number] [place] [address]- [address] Jan, [facility] [place] [facility] [address] [facility] [id number] [place] [address]- [address] Jan, [facility] [place] [facility] [address] [facility] [id number] [place] [address]- [address] Jan, [facility] [place] [facility] [address] [id number], [place] [address] 24 Jan, 2012 [facility] [place] [facility] [address] [id number] [place] [address]- 24[address] Jan, [facility] [place] [facility] [address] [facility] [id number] [place] [address] Jan, [facility] [place] [facility] [address] [facility] [id number], [place] [address] Jan, [facility] [place] [facility] [address] [id number] [place] [address] 12 Jan, 2012 [facility] [place] [facility] [address] [id number] [place] [address] Jan, [facility] [place] [facility] [address] [id number] [place] [address] Jan, [facility] [place] [facility] [address] [id number] [place] [address] 08 Jan, 2012 [facility] [place] [facility] [address] [id number] [place] [address] 6393 05 Jan, 2012 [facility] [place] [facility] [address] [id number] [place] [address] 04 Jan, 2012 [facility] [place] [facility] [address] [id number] [place] [address] 4[address] 21 Dec, 2011 [facility] [place] [facility] [address] [id number] [place] [address] 4162 20 Dec, 2011 [facility] [place] [facility] [address] [id number] [place] [address] 0656 18 Dec, 2011 [facility] [place] [facility] [address] [id number] [place] [address] 18 Dec, 2011 [facility] [place] [facility] [address] [id number] [place] [address] 254 10 Dec, 2011 [facility] [place] [facility] [address] [id number] [place] [address] 2545 10 Dec, 2011 [facility] [place] [facility] [address] [id number] [place] [address] 2542 10 Dec, 2011 [facility] [place] [facility] [address] [id number] [place] [address] 2547 07 Dec, 2011 [facility] [place] [facility] [address] [id number] [place] [address] 2641 30 Nov, 2011 [facility] [place] [facility] [address] [id number] [place] [address] 2380 Nov, [facility] [place] [facility] [address] [id number] [place] [address] 4[address] Nov, [facility] [place] [facility] [address] [id number] [place] [address] 6596 Nov, [facility] [place] [facility] [address] [id number] [place] [address]- 0746 Nov, [facility] [place] [facility] [address] [id number] [place] [address]20 Nov, [facility] [place] [facility] [address] [id number] [place] [address] 8987 Oct, [facility] [place] [facility] [address] [id number] [place] [address] 2615 Oct, [facility] [place] [facility] [address] [id number] [place] [address] 18[address] Oct, [facility] [place] [facility] [address] [id number] [place] [address] 2598 Oct, [facility] [place] [facility] [address] [id number] [place] [address] Oct, [facility] [place] [facility] [address] [id number] [place] [address] 4882 Oct, [facility] [place] [facility] [address] [id number] [place] [address] 6142 Oct, [facility] [place] [facility] [address] [id number] [place] [address] 4661 Sep, [facility] [place] [facility] [address] [id number] [place] [address] 9748 Sep, [facility] [place] [facility] [address] [id number] [place] [address] 7741 Sep, [facility] [place] [facility] [address] [id number] [place] [address] 2684 Sep, [facility] [place] [facility] [address] [id number] [place] [address] 3365 19 Sep, 2011 [facility] [address] [id number] [place] [address] 5049 15 Sep, 2011 [facility] [address] [id number] [place] [address] 8904 14 Sep, 2011 [facility] [address] [id number] [place] [address] 20[address] Sep, [facility] [address] [id number] [place] [address] 3917 05 Sep, 2011 [facility] [address] [id number] [place] [address] 8470 04 Sep, 2011 [facility] [address] [id number] [place] [address] 28[address] August, [facility] [address] [id number] [place] [address] 96[address] August, [facility] [address] [id number] [place] [address] 54[address] August, [facility] [address] [id number] [place] [address]- 2018 August, [facility] [address] [id number] [place] [address] August, [facility] [address] [id number] [place] [address] 6[address] Jul, [facility] [address] [id number] [place] [address] 5734 Jul, [facility] [place] [facility] [address] [id number] [place] [address]- 4836 25 Jul, 2011 [facility] [place] [facility] [address] [id number] [place] [address] 4885 17 Jul, 2011 [facility] [address] [id number] [place] [address] 8305 Jul, [facility] [place] [facility] [address] [id number] [place] [address]- 2604 Jul, [facility] [place] [facility] [address] [id number] [place] [address]- [address] Jul, [facility] [place] [facility] [address] [id number] [place] [address] 8318 Jun, [facility] [place] [facility] [address] [id number] [place] [address] 7456 Jun, [facility] [place] [facility] [address] [id number] [place] [address]- 1609 Jun, [facility] [place] [facility] [address] [id number] [place] [address]- 2364 Jun, [facility] [place] [facility] [address] [facility] [id number] [place] [address] 3736 Jun, [facility] [place] [facility] [address] [id number] [place] [address] 9304 May, [facility] [place] [facility] [address] [id number] [place] [address]- 6238 May, [facility] [place] [facility] [address] [id number] [place] [address]- 0212 May, [facility] [place] [facility] [address] [id number] [place] [address]- 6812 May, [facility] [place] [facility] [address] [id number] [place] [address]- 6824 May, [facility] [place] [facility] [address] [id number] [place] [address]- 7994 May, [facility] [place] [facility] [address] [id number] [place] [address]- 3266 Apr, [facility] [place] [facility] [address] [id number] [place] [address]- 8485 Mar, [facility] [place] [facility] [address] [id number] [place] [address]- 2744 11 Feb, 2011 [facility] [place] [facility] [address] [id number] [place] [address] 1893 07 Feb, 2011 [facility] [place] [facility] [address] [id number] [place] [address] Feb, [facility] [place] [facility] [address] [id number] [place] [address]- 0674 Feb, [facility] [place] [facility] [address] [id number] [place] [address]- 9862 31 Jan, 2011 [facility] [place] [facility] [id number] [place] [address], [place] [address]- 2585 Jan, [facility] [place] [facility] [address] [id number] [place] [address]- 3302 Jan, [facility] [place] [facility] [address] [id number] [place] [address]- 2136 24 Jan, 2011 [facility] [place] [facility] [address] [id number] [place] [address]- 3184 14 Jan, 2011 [facility] [place] [facility] [address] [id number] [place] [address]- 7476 Dec, [facility] [place] [facility] [address] [facility] [id number] [place] [address]- 3932 Oct, [facility] [place] [facility] [address] [id number] [place] [address]- 7563 August, [facility] [place] [facility] [address] [id number] [place] [address]- 3760 Mar, [facility] [place] [facility] [address] [id number] [place] [address]- 2276 27 Mar, 2010 [facility] [place] [facility] [address] [id number] [place] [address]- 2549 16 Mar, 2010 [facility] [place] [facility] [address] [id number] [place] [address] 15 Mar, 2010 [facility] [place] [facility] [address] [id number] [place] [address]- 8933 Mar, [facility] [place] [facility] [address] [id number] [place] [address]- 2466 Mar, [facility] [place] [facility] [address] [id number] [place] [address]- 8986 Mar, [facility] [place] [facility] [address] [id number] [place] [address]- 9775 Feb, [facility] [place] [facility] [address] [id number] [place] [address]- 5445 Feb, [facility] [place] [facility] [address] [id number] [place] [address]- 4909 Feb, [facility] [address] [id number] [place] [address]- 2336 Jan, [facility] [place] [facility] [address] [id number] [place] [address]- 6593 Jan, [facility] [place] [facility] [address] [id number] [place] [address]- 2838 Jan, [facility] [place] [facility] [address] [id number] [place] [address]- 7794 Nov, [facility] [place] [facility] [address] [id number] [place] [address]- 5382 Sep, [facility] [place] [facility] [address] [id number], [place] [address]- 5471 August, [facility] [place] [facility] [address] [id number] [place] [address]- 8371 Mar, [facility] [place] [facility] [address] [id number] [place] [address]- 9182 Mar, [facility] [place] [facility] [address] [id number] [place] [address]- 3519 Feb, [facility] [place] [facility] [address] [id number], [place] [address] Feb, [facility] [address] [address]396 Feb, [facility] [address] [address]96 Feb, [facility] [address] [address] 4875 Feb, [facility] [address] [address]228 Jan, [facility] [address] [address]28 Jan, [facility] [address] [address]19 Jan, [facility] [address] [address]87 Jan, [facility] [address] [address] Nov, [facility] [address] [address] Sep, [facility] [address] [address] August, [facility] [address], [place] [address] Jul, [facility] [address], [place] [address] 3041 May, IMMUNIZATIONS No Known Immunizations SOCIAL HISTORY Never Assessed REASON FOR VISIT Pneumonia PLAN OF CARE Activity Details Follow Up prn Reason: VITAL SIGNS Height 64 in 2017-04-09 Weight 164.2 lbs 2017-04-09 Temperature 98.5 degrees Fahrenheit 2017-04-09 Heart Rate 104 bpm 2017-04-09 Respiratory Rate 20 2017-04-09 Oximetry 96 % 2017-04-09 BMI 28.18 kg/m2 2017-04-09 Blood pressure systolic 122 mmHg 2017-04-09 Blood pressure diastolic 64 mmHg 2017-04-09 MEDICATIONS Medication Instructions Dosage Frequency Start Date End Date Duration Status Topamax 25 MG Orally Twice a day 1 AM, 2 hs 12h Active Botox 200 UNIT Active Ventolin HFA 108 (90 Base) MCG/ACT INHALE 2 PUFFS EVERY 4 HOURS NEEDED 16 Active Prednisone 5 mg Oral Once a day 1 tablet 24h Active Imitrex 100 MG TAKE 1 TABLET ONE TIME DAILY NEEDED DIRECTED 30 Active Promethazine-Codeine 6.25-10 MG/5ML Orally every 6 hrs 5 ml as needed 6h Apr, Apr, 5 days Active Welchol 3.75 GM Orally Once a day 1 packet mixed with water with a meal 24h Active Lomotil 2.5-0.025 mg Orally Four times a day TWO TABLETS 6h 30 Active Cetirizine HCl 10 MG Orally Once a day 1 tablet as needed 24h Active Baclofen 20 MG Orally 3 times a day 1 tablet with food or milk 8h May, 30 day(s) Active Benefiber - Active Alendronate Sodium 70 MG TAKE 1 TABLET EVERY WEEK 84 Active Xolair 150 mg inject 1.2 milliliters (150 mg) by subcutaneous route every 4 weeks Sep, Active Fluticasone Propionate 50 MCG/ACT Nasally 2 times a day 2 sprays in each nostril 12h Active Eliquis 5 MG Orally 2 times a day 12h Active Aricept 10 MG TAKE 1 TABLET EVERY DAY Active Trospium Chloride 20 mg Orally Once a day 1 tablet at bedtime on an empty stomach 24h Active Simvastatin 20mg Orally Once a day 1 tablet in the evening 24h Active Ondansetron 4 MG Orally every 8 hrs 1 tablet on the tongue and allow to dissolve 8h Active Betamethasone Dipropionate 0.05 % Externally twice a day 1 application to affected area 12h Active Benzonatate 100 mg Orally every eight hours as needed for cough 1 capsule as needed Active Zofran ODT 4 MG Orally every 4 hrs 1 tablet on the tongue and allow to dissolve 4h Jul, 1 days Active HydrOXYzine HCl 25 MG TAKE 1 TABLET THREE TIMES DAILY 90 Active Trintellix 20 mg Orally Once a day 1 tablet 24h 28 Dec, 2015 Active Morphine Sulfate ER 30 MG Orally every 12 hrs 1 tablet 12h Jan, Active Symbicort 160-4.5 MCG/ACT INHALE 2 PUFFS TWICE DAILY, IN THE MORNING AND IN THE EVENING 90 Active Klonopin 0.5 MG Orally Once a day for two weeks, then 1/2 tablet daily for two weeks, then stop. Tapering out. 1 tablet Feb, 30 days Active Fluorouracil 5 % Externally Twice a day 1 application to affected area 12h Active Remeron 30 MG Orally Once a day at bedtime 1 tablet Feb, 30 day(s) Active PredniSONE 20 MG Orally Once a day 2 tablet 24h Apr, Apr, 5 days Active Myrbetriq 50 MG Orally Once a day 1 tablet 24h Active Ropinirole HCl 2 MG TAKE 1 TABLET ONE TIME DAILY AT BEDTIME 90 Active Primidone 250 mg Orally Three times a day 1 tablet 8h 90 days Active Abilify 20 mg Orally Once a day 1 tablet 24h Jul, Active Toprol XL 25 MG Orally Once a day 1 tablet 24h Active Singulair 10 MG Orally Once a day take 1 tablet (10 mg) by oral route once daily in the evening 24h Oct, Active Tessalon Perles 200 mg Orally Three times a day 1 capsule as needed 8h Mar, Apr, 07 days Active Abilify 5 mg Orally Once a day 1 tablet 24h Oct, Active Levaquin 500 mg Orally Once a day 1 tablet 24h Mar, Apr, 10 day(s) Active Namenda 10 MG TAKE 1 TABLET EVERY DAY 90 Active Omeprazole 40 mg Orally Once a day 1 capsule 24h Active Oxygen 5 inhalation all the time Active Gabapentin 600 MG TAKE 1 TABLET THREE TIMES DAILY 90 Active Tiotropium [place] Monohydrate 18 MCG Inhalation Once a day 1 capsule 24h Active Albuterol Sulfate 2.5 mg /3 mL (0.083 %) 1 Each by Inhalation route every 4 hours for cough and wheeze PRN for wheezing or cough Jun, Active Nitroglycerin 0.4 MG Active RESULTS Name Result Date Reference Range Xray : Chest 2 View (IN HOUSE) 2017-04-09 PROCEDURES Procedure Date Ordered Result Body Site MEASURE BLOOD OXYGEN LEVEL Apr 09, 2017 X-RAY EXAM CHEST 2 VIEWS Apr 09, 2017 [facility] VISIT ESTABLISHED PATIENT Apr 09, 2017 INSTRUCTIONS MEDICATIONS ADMINISTERED No Known [...]
--- OUTSIDE RECORDS SUMMARY | 2018-01-01 13:10 | XMS REPORT ---
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 [employer] Name Role Phone SENAIT DUNLAP Unavailable PROBLEMS Type Condition ICD9-CM Code WKB26-SU Code Onset Dates Condition Status SNOMED Code Problem History of common bile duct surgery Z98.89 Active 827100608 Problem Barretts esophagus K22.70 Active 700074870 Problem 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 Active 19525710 Problem Colon polyp K63.5 Active 75234516 Problem Bilateral low back pain without sciatica M54.5 Active 518164073 Problem Screening breast examination Z12.39 Active 347118887 Problem Postmenopausal Z78.0 Active 95939924 Problem Osteopenia M85.80 Active 545555505 Problem Cigarette nicotine dependence without complication F17.210 Active 45332602 Problem Type 2 diabetes mellitus with diabetic peripheral angiopathy without gangrene E11.51 Active 769119714 Problem Vascular dementia without behavioral disturbance F01.50 Active [id number] Problem Unspecified atherosclerosis of [place] arteries of extremities, unspecified extremity I70.209 Active 389158049227772 Problem Arthritis M19.90 Active 3296113 Problem Chronic atrial fibrillation I48.2 Active 169317057 Problem Chronic obstructive pulmonary disease with acute lower respiratory infection J44.0 Active 558303018 Problem Other chronic pancreatitis K86.1 Active 685902719 Problem Stress incontinence of urine N39.3 Active 40110602 Problem Controlled type 2 diabetes mellitus without complication, without long -term current use of insulin E11.9 Active 739358618 Problem Unspecified psychosis F29 Active 51636751 Problem Xeroderma Q80.9 Active 86613218 Problem COPD (chronic obstructive pulmonary disease) J44.9 Active 85539321 Problem Dementia without behavioral disturbance, unspecified dementia type F03.90 Active 10732475 Problem Gastroparesis K31.84 Active 970112870 Problem Type 2 diabetes mellitus with diabetic neuropathy, without long-term current use of insulin E11.40 Active 46335619 Problem Osteoporosis M81.0 Active 80172461 Problem Atherosclerosis of [place] artery of both lower extremities with intermittent claudication I70.213 Active 629633884723615 Problem Hyperlipidemia E78.5 Active 64830162 Problem Diabetic polyneuropathy associated with type 2 diabetes mellitus E11.42 Active 36021532 Problem Essential tremor G25.0 Active 46610631 Problem Atherosclerotic heart disease of [place]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 I25.118 Active 2995174405468 Problem Generalized anxiety disorder F41.1 Active 627363063 Problem Gastroesophageal reflux disease, esophagitis presence not specified K21.9 Active 421492480 Problem Coronary artery disease involving [place] coronary artery of [place] heart with other form of angina pectoris I25.118 Active 2169953939531 Problem Postconcussion syndrome F07.81 Active 04399608 Problem Chronic pain syndrome G89.4 Active 086553408 Problem Migraine without aura and without status migrainosus, not intractable G43.009 Active 078797492 Problem Paroxysmal atrial fibrillation I48.0 Active 965342660 Problem Migraine without aura and with status migrainosus, not intractable G43.001 Active 721408930 Problem Cervicalgia M54.2 Active 4284678873559 Problem Acute exacerbation of chronic obstructive pulmonary disease (COPD) J44.1 Active 297042951 Problem Major depressive disorder, recurrent episode, moderate F33.1 Active 543004726 Problem Crohn''s disease without complication, unspecified gastrointestinal tract location K50.90 Active 29594849 Problem Chronic fatigue R53.82 Active 38814702 Problem Bipolar affective disorder, currently depressed, moderate F31.32 Active [id number] ALLERGIES No Information ENCOUNTERS Encounter Location Date Diagnosis [facility] [id number], [place] [address] Oct, [facility] [address], [place] [address] Sep, [facility] [address], [place] [address] August, [facility] [id number], [place] [address] August, [facility] [address] [place] [address] 20252- 6462 August, Gastroesophageal reflux disease, esophagitis presence not specified K21.9 [facility] [id number] [place] [address] 74748- 4726 August, [facility] [id number] [place] [address] 74165- 8672 August, [facility] [id number] [place] [address] 50066- 7173 August, [facility] [id number] [place] [address] 40957- 5922 August, Type 2 diabetes mellitus with diabetic neuropathy, without long-term current use of insulin E11.40 and Elevated liver enzymes R74.8 [place] [id number] [place] [address] 40052- 6121 Jul, [facility] [id number] [place] [address] 45634- 5786 Jul, Cough R05 [facility] [id number] [place] [address] 83527- 6182 Jul, [facility] [id number] [place] [address] 76938- 2948 Jul, [facility] [address] [place] [address] 48637- 9843 Jul, Bipolar affective disorder, currently depressed, moderate F31.32 ; Vascular dementia without behavioral disturbance F01.50 and Generalized anxiety disorder F41.1 [facility] [address] [place] [address] 80532- 1725 Jul, [facility] [id number] [place] [address] 55092- 6239 Jul, Type 2 diabetes mellitus with diabetic neuropathy, without long-term current use of insulin E11.40 and Elevated liver enzymes R74.8 [facility] [id number] [place] [address] 34071- 6940 Jul, [facility] [id number] [place] [address] 01794- 5887 Jul, [facility] [id number] [place] [address] 28863- 1344 Jul, [facility] [id number] [place] [address] 77903- 5791 Jul, Post-menopausal Z78.0 [facility] [id number] [place] [address] 06258- 4333 Jul, Stress incontinence of urine N39.3 [facility] [id number] [place] [address] 32471- 3675 Jul, [facility] [id number] [place] [address] 66900- 8513 Jul, [facility] [address] 01724- 9584 Jul, Stress incontinence of urine N39.3 and Cough R05 [facility] [id number] [place] [address] 43041- 9440 Jul, [facility] [id number] [place] [address] 33492- 0819 Jul, [facility] [id number] [place] [address] 35470- 4142 Jul, [facility] [id number] [place] [address] 49944- 2812 Jul, Gastroesophageal reflux disease, esophagitis presence not specified K21.9 [facility] [id number] [place] [address] 79506- 3071 Jun, Diabetic polyneuropathy associated with type 2 diabetes mellitus E11.42 [facility] [id number] [place] [address] 63589- 3193 Jun, Diabetic polyneuropathy associated with type 2 diabetes mellitus E11.42 ; Coronary artery disease involving [place] coronary artery of [place] heart with other form of angina pectoris I25.118 and Paroxysmal atrial fibrillation I48.0 [facility] [address], [place] [address] 47[address] Jun, [facility] [address] [place] [address] 42592- 8740 Jun, [facility] [address] [place] [address] 97037- 5058 Jun, Gastroenteritis K52.9 [facility] [id number] [place] [address] 90470- 7087 Jun, Gastroenteritis K52.9 [facility] [id number] [place] [address] 35991- 0956 Jun, [facility] [id number] [place] [address] 66853- 0809 Jun, [facility] [id number] [place] [address] 91529- 8796 Jun, Sprain of right ankle, unspecified ligament, initial encounter S93.401A ; Type 2 diabetes mellitus with diabetic neuropathy, without long-term current use of insulin E11.40 ; Atherosclerosis of [place] artery of both lower extremities with intermittent claudication I70.213 ; Atherosclerotic heart disease of [place]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 I25.118 ; Chronic atrial fibrillation I48.2 and Crohn''s disease without complication, unspecified gastrointestinal tract location K50.90 [facility] [address], [place] [address] 17 Jun, 2017 Cough R05 and Chronic obstructive pulmonary disease with acute lower respiratory infection J44.0 [facility] [address] [place] [address] 41100- 2853 Jun, [facility] [address] [place] [address] 24882- 0874 15 Jun, 2017 Coughing R05 ; Unspecified atherosclerosis of [place] arteries of extremities, unspecified extremity I70.209 ; Type 2 diabetes mellitus with diabetic peripheral angiopathy without gangrene E11.51 ; Crohn''s disease without complication, unspecified gastrointestinal tract location K50.90 ; Other chronic pancreatitis K86.1 and Chronic atrial fibrillation I48.2 [facility] [address], [place] [address] Jun, [facility] [id number] [place] [address] 58673- 2755 Jun, Bipolar affective disorder, currently depressed, moderate F31.32 ; Vascular dementia without behavioral disturbance F01.50 and Generalized anxiety disorder F41.1 [facility] [address] [place] [address] 55743- 6252 May, Generalized anxiety disorder F41.1 [facility] [id number] [place] [address] 91118- 2201 May, [facility] [id number] [place] [address] 64990- 7101 May, [facility] [address], [place] [address]- 3761 May, Coughing R05 [facility] [id number] [place] [address] 33482- 0354 May, [facility] [id number] [place] [address] 56864- 9898 May, Bipolar affective disorder, currently depressed, moderate F31.32 ; Vascular dementia without behavioral disturbance F01.50 and Generalized anxiety disorder F41.1 [facility] [address], [place] [address]- 2093 Apr, Generalized anxiety disorder F41.1 [facility] [address] [place] [address] 00612- 4012 Apr, [facility] [address], [place] [address]- 3168 Apr, Vascular dementia without behavioral disturbance F01.50 ; Generalized anxiety disorder F41.1 and Bipolar affective disorder, currently depressed, moderate F31.32 [place] [id number] [place] [address] 12788- 8922 Apr, Generalized anxiety disorder F41.1 [facility] [address] 64890 -6585 Apr, Cough R05 and Acute exacerbation of chronic obstructive pulmonary disease (COPD) J44.1 [place] [address] 33030- 5324 Apr, [facility] [address] 41527 -7506 Mar, Cough R05 and Cigarette nicotine dependence without complication F17.210 [place] [address] 75048- 9289 Mar, [place] [address] 46001- 9948 Feb, Generalized anxiety disorder F41.1 ; Major depressive disorder, recurrent episode, moderate F33.1 ; Vascular dementia without behavioral disturbance F01.50 and Unspecified psychosis F29 [address] 31629- 1032 Feb, [place] [address] 13869- 7943 Feb, [place] [address] 73855- 7758 Feb, Generalized anxiety disorder F41.1 [place] [address] 03682- 4172 Feb, Generalized anxiety disorder F41.[address] 06245- 3078 Feb, Dizziness R42 ; Chronic fatigue R53.82 ; Postconcussion syndrome F07.81 ; Fall, initial encounter W19.XXXA and Disorientation R41.[address] [place] [address]- 4485 Feb, Postconcussion syndrome F07.81 ; Injury of head, initial encounter S09.90XA ; Fall, initial encounter W19.XXXA ; Disorientation R41.0 and Acute cystitis with hematuria N30.01 [place] [address] 89999- 2717 Jan, Gastroesophageal reflux disease, esophagitis presence not specified K21.9 ; Post-menopausal Z78.0 and Migraine without aura and without status migrainosus, not intractable G43.009 [place] [address] 36237- 7660 Jan, [place] [address] 36443- 3628 Jan, Generalized anxiety disorder F41.1 ; Major depressive disorder, recurrent episode, moderate F33.1 ; Vascular dementia without behavioral disturbance F01.50 and Unspecified psychosis F29 [place] [address] 43845- 1320 Jan, Pneumonia of left lower lobe due to infectious organism J18.1 [place] [address] 96764- 9933 Jan, Migraine without aura and with status migrainosus, not intractable G43.001 [facility] [id number] [place] [address] 87765 -9711 Jan, Migraine without aura and without status migrainosus, not intractable G43.009 [place] [address] 29088- 9424 Dec, Hematoma T14.8 [place] [address] 94176- 3181 Dec, [facility] [address] 07743 -9426 Nov, Fatigue, unspecified type R53.83 [place] [address], [place] [address]- 6998 Nov, Scabies B86 and Coronary artery disease involving [place] coronary artery of [place] heart with other form of angina pectoris I25.118 [facility] [address], [place] [address]- 9092 Nov, [facility] [address], [place] [address]- 8039 Nov, [facility] [id number] [place] [address] 18531- 5793 Oct, [place] [id number] [place] [address] 94813- 3874 Oct, Generalized anxiety disorder F41.1 and Major depressive disorder, recurrent episode, moderate F33.1 [facility] [address], [place] [address]- 5582 Oct, Cramp of both lower extremities R25.2 [facility] [address], [place] [address]- 0307 Oct, Leg cramps R25.2 [place] [id number] [place] [address] 05510- 7354 Oct, Chronic pain syndrome G89.4 [facility] [address], [place] [address]- 0339 Oct, [facility] [address], [place] [address]- 6923 Oct, [facility] [address], [place] [address]- 0219 Oct, Routine gynecological examination Z01.419 and Screening for breast cancer Z12.31 [facility] [address], [place] [address]- 1201 Sep, Diarrhea R19.7 [facility] [id number] [place] [address] 19320- 6901 Sep, Back pain M54.9 [place] [id number] [place] [address] 81706- 5621 Sep, [place] [id number] [place] [address] 27592- 0982 Sep, [facility] [address] 01109 -0745 August, Xeroderma Q80.9 [place] [address] 02424- 9006 August, Dementia without behavioral disturbance, unspecified dementia type F03.90 [place] [address] 22003- 9759 August, Chronic pain syndrome G89.4 [place] [address] 17730- 3804 August, [place] [address] 22606- 9206 August, Hyperlipidemia E78.5 ; Other fatigue R53.83 and Other specified hypotension I95.89 [facility] [place] [address] 16341 -8874 August, Dysuria R30.0 ; Other fatigue R53.83 and Other specified hypotension I95.89 [place] [id number] [place] [address] 28056- 2450 August, [place] [id number] [place] [address] 51345- 4999 Jul, Pain in left knee M25.562 and Gastroenteritis K52.9 [place] [address] 68589- 1275 Jul, [place] [id number] [place] [address] 86262- 9154 Jul, Diarrhea R19.7 [facility] [address] 71215 -9603 Jul, Spider bite, accidental or unintentional, initial encounter T63.301A [place] [id number] [place] [address] 82901- 7347 Jul, Primary osteoarthritis of right knee M17.11 and Arthritis M19.90 [place] [address] 98236- 1791 Jul, Generalized anxiety disorder F41.1 and Major depressive disorder, recurrent episode, moderate F33.1 [place] [address] 88180- 7802 07 Jul, 2016 Type 2 diabetes mellitus with diabetic polyneuropathy E11.42 and Temporal headache R51 [place] [address] 34872- 3204 06 Jul, 2016 Back pain M54.9 [place] [address] 78275- 5880 Jul, [place] [address] 44710- 7058 Jul, [place] [address] 30582- 0629 30 Jun, 2016 Nausea R11.0 [facility] [id number] [place] [address] 49832 -7824 Jun, Acute suppurative otitis media of both ears without spontaneous rupture of tympanic membranes, recurrence not specified H66.003 and COPD exacerbation J44.1 [place] [id number] [place] [address] 28555- 6424 Jun, Generalized anxiety disorder F41.1 [place] [id number] [place] [address] 10566- 0657 16 Jun, 2016 [facility] [id number] [place] [address] 84187 -9939 13 Jun, 2016 [facility] [address] [place] [address]08 13 Jun, 2016 Shortness of breath R06.02 and COPD exacerbation J44.1 [place] [address] 41169- 8410 10 Jun, 2016 Eczema, unspecified type L30.9 [place] [address] 00113- 9428 Jun, [place] [address] 89252- 8580 May, [place] [address] 75977- 5385 May, Muscle cramping R25.2 [place] [id number] [place] [address] 27633- 3536 May, [place] [address] 99639- 6688 Apr, Diarrhea R19.7 [place] [id number] [place] [address] 82910- 7600 Apr, [place] [address] 79747- 6943 Apr, Chronic pain syndrome G89.4 [place] [id number] [place] [address] 27356- 1473 Apr, Cramp of both lower extremities R25.2 and Vascular dementia without behavioral disturbance F01.50 [place] [id number] [place] [address] 87186- 3134 Apr, Type 2 diabetes mellitus with diabetic polyneuropathy E11.42 and Cigarette nicotine dependence without complication F17.210 [place] [id number] [place] [address] 30173- 3974 Mar, Generalized anxiety disorder F41.1 [place] [id number] [place] [address] 10517- 7087 28 Nov, 2016 Generalized anxiety disorder F41.1 and Major depressive disorder, recurrent episode, moderate F33.1 [facility] [id number] [place] [address] 45820- 1889 Feb, [facility] [id number] [place] [address] 99827 -0036 Feb, Dysuria R30.0 and Acute cystitis with hematuria N30.01 [place] [address] 70436- 2028 Jan, [facility] [address] 17155- 8390 Jan, [place] [address] 73864- 0139 Jan, [place] [address] 97266- 5912 Jan, [facility] [address] 29572 -7114 Jan, Wasp sting, accidental or unintentional, initial encounter T63.461A [place] [address] 95777- 5222 06 Jan, 2016 Encounter for immunization Z23 [place] [id number] [place] [address] 65058- 2650 05 Jan, 2016 [place] [id number] [place] [address] 46430- 0671 Jan, [place] [id number] [place] [address] 44418- 1024 Dec, Generalized anxiety disorder F41.1 and Major depressive disorder, recurrent episode, moderate F33.1 [place] [id number] [place] [address] 28097- 5140 Dec, Routine gynecological examination Z01.419 ; Postmenopausal Z78.0 ; Screening breast examination Z12.39 ; Osteopenia M85.80 and Breast cancer screening Z12.39 [place] [address] [facility] [id number] [place] [address]- 3165 20 Dec, 2015 [facility] [address] [facility] [id number] [place] [address]- 4988 19 Dec, 2015 [facility] [address] [facility] [id number] [place] [address]- 4370 16 Dec, 2015 [facility] [address] [place] [address]- 5365 16 Dec, 2015 [facility] [address] [facility] [id number] [place] [address]- 7292 14 Dec, 2015 [facility] [address] [address]- 1671 06 Dec, 2015 [facility] [id number] [place] [address] 30 Nov, 2015 [facility] [id number] [place] [address] Nov, Cough R05 ; Other viral agents as the cause of diseases classified elsewhere B97.89 and Acute upper respiratory infection, unspecified J06.9 [facility] [id number] [place] [address] 20[address] Nov, [facility] [id number] [place] [address] 6604 Nov, [facility] [id number] [place] [address] 8440 Nov, [facility] [id number] [address] 85[address] Nov, [facility] [id number] [place] [address] 6[address] Nov, [facility] [address] [id number] [place] [address] 9[address] Oct, [facility] [address], [place] [address] 69[address] Oct, [facility] [id number] [place] [address] 97544- 9997 14 Oct, 2015 [facility] [id number] [place] [address] 72352- 7282 13 Oct, 2015 Chronic pain syndrome G89.4 [facility] [id number] [place] [address] 43484- 6612 29 Sep, 2015 Generalized anxiety disorder F41.1 and Major depressive disorder, recurrent episode, moderate F33.1 [facility] [id number] [place] [address] 80804- 8248 23 Sep, 2015 [facility] [id number] [place] [address] 65633- 1404 Sep, [facility] [id number] [place] [address] 71924- 3886 14 Sep, 2015 Generalized anxiety disorder F41.1 [place] [id number] [place] [address] 53743- 4944 13 Sep, 2015 Cramp of both lower extremities R25.2 and Cervicalgia M54.2 [place] [id number] [place] [address] 31756- 5975 06 Sep, 2015 Generalized anxiety disorder F41.1 [place] [id number] [place] [address] 95038- 7503 Sep, [facility] [id number] [place] [address] 77452 -4072 August, Rash R21 ; Itching L29.9 and Allergic response, subsequent encounter T78.40XD [facility] [id number] [place] [address] 15762- 8354 August, Primary insomnia F51.01 [facility] [id number] [place] [address] 28679 -7872 August, Rash R21 ; Itching L29.9 and Allergic response, initial encounter T78.40XA [facility] [address]005[address], [place] [address] 0897 August, [facility] [id number] [place] [address] 74191- 7029 August, Cramp of both lower extremities R25.2 [facility] [address], [place] [address] 6981 August, Back pain M54.9 [facility] [id number] [place] [address] 70236- 5894 August, [facility] [id number] [place] [address] 45601- 4605 August, [facility] [address]005[address], [place] [address] August, Cramp of both lower extremities R25.2 [facility] [id number] [place] [address] 18770- 8149 August, [facility] [address], [place] [address]- 9986 August, Syncope R55 ; Paroxysmal atrial fibrillation I48.0 ; Dementia without behavioral disturbance, unspecified dementia type F03.90 and Chronic pain syndrome G89.4 [facility] [address], [place] [address] 6355 August, Type 2 diabetes mellitus with diabetic polyneuropathy E11.42 and Syncope R55 [facility] [address], [place] [address]- 7140 Jul, [facility] [address], [place] [address]- 8668 Jul, [facility] [address], [place] [address]- 1196 Jul, [facility] [address], [place] [address]- 8917 Jul, [facility] [address] [id number], [place] [address]- 7086 22 Jul, 2015 [facility] [address], [place] [address]- 0134 19 Jul, 2015 UTI (urinary tract infection) N39.0 [facility] [address], [place] [address]- 7496 18 Jul, 2015 [facility] [id number] [place] [address] 32340- 9345 18 Jul, 2015 Major depressive disorder, recurrent episode, moderate F33.1 and Generalized anxiety disorder F41.1 [facility] [id number] [place] [address] 46601- 3066 Jul, Generalized anxiety disorder F41.1 [facility] [address], [place] [address]- 2572 Jul, Diarrhea R19.7 [facility] [id number] [place] [address] 37647- 4874 Jul, [facility] [address]005[address], [place] [address]- 9056 Jun, [facility] [id number] [place] [address] 13926- 4894 Jun, Eczema L30.9 [facility] [address], [place] [address]- 3955 Jun, [facility] [address]005[address], [place] [address]- 6200 Jun, COPD (chronic obstructive pulmonary disease) J44.9 [facility] [address]005[address], [place] [address]- 4077 16 Jun, 2015 [facility] [address]005[address], [place] [address]- 3880 02 Jun, 2015 Major depressive disorder, recurrent episode, moderate F33.1 and Generalized anxiety disorder F41.1 [facility] [address]005[address], [place] [address]- 9590 May, [facility] [address], [place] [address]- 3219 May, UTI (urinary tract infection) N39.0 [facility] [address], [place] [address]- 0556 May, [facility] [id number] [place] [address] 70286- 2082 May, [facility] [address], [place] [address]- 6162 May, [facility] [id number] [place] [address] 70471- 0078 May, [facility] [address], [place] [address]- 7676 Apr, Major depressive disorder, recurrent episode, moderate F33.1 and Generalized anxiety disorder F41.1 [facility] [address], [place] [address]- 3347 Apr, COPD (chronic obstructive pulmonary disease) J44.9 [facility] [address], [place] [address]- 4854 Apr, [facility] [address], [place] [address]- 5575 Apr, Atrial flutter I48.92 [facility] [address], [place] [address]- 3817 Apr, [facility] [address], [place] [address]- 2624 Apr, [facility] [address], [place] [address]- 4191 Mar, [facility] [address], [place] [address]- 8866 Mar, [facility] [address] [id number], [place] [address]- 3162 Mar, [facility] [id number] [place] [address] 81496- 8767 Mar, Hyperlipidemia E78.5 ; Type 2 diabetes mellitus with diabetic polyneuropathy E11.42 ; Major depressive disorder, recurrent episode, moderate F33.1 and Chronic pain syndrome G89.4 [facility] [id number] [place] [address] 36986- 6595 Mar, [facility] [id number] [place] [address] 94066- 4861 Mar, [facility] [id number] [place] [address] 82869- 2186 Mar, [facility] [id number] [place] [address] 58537- 5038 Mar, [facility] [id number] [place] [address] 06014- 0226 Feb, COPD (chronic obstructive pulmonary disease) J44.9 and Back pain M54.9 [facility] [id number] [place] [address] 27137- 5349 Feb, [facility] [id number] [place] [address] 77035- 1044 Feb, [facility] [id number] [place] [address] 04044- 9883 Feb, [facility] [id number] [place] [address] 19127- 3146 Feb, [facility] [id number] [place] [address] 98488- 4715 Feb, [facility] [id number] [place] [address] 09505- 3679 Feb, [facility] [address], [place] [address]- 8792 Feb, [facility] [id number] [place] [address] 92715- 8945 Feb, [facility] [address] 93433- 7968 Feb, Diabetes E11.9 ; Back pain M54.9 and COPD (chronic obstructive pulmonary disease) J44.9 [facility] [address] 58048- 0476 Jan, [facility] [address] 87085- 0487 Jan, Major depression, recurrent F33.9 and Generalized anxiety disorder F41.1 [facility] [address] 91060- 0075 Jan, Chronic pain G89.29 [facility] [address] 82117- 4853 Jan, [facility] [address] 63309- 9125 Jan, [facility] [id number] [place] [address] 00693- 9301 Jan, [facility] [id number] [place] [address] 29791- 7369 Jan, [facility] [id number] [place] [address] 16242- 3315 Jan, Nicotine dependence F17.200 [facility] [address] 75095- 0399 Jan, Nicotine dependence F17.200 and Back pain M54.9 [facility] [address] 76622- 3314 Jan, [facility] [id number] [place] [address] 37109- 2936 Dec, [facility] [address] 92263- 7781 Dec, Anxiety, generalized 300.02 and Major depression, recurrent 296.30 [facility] [address], [place] [address]- 5675 24 Dec, 2014 [facility] [id number] [place] [address] 68157- 5240 21 Dec, 2014 [facility] [id number] [place] [address] 30480- 6665 17 Dec, 2014 [facility] [id number] [place] [address] 83315- 1775 15 Dec, 2014 [facility] [id number] [place] [address] 29810- 4481 14 Dec, 2014 [facility] [id number] [place] [address] 83196- 0941 11 Dec, 2014 [facility] [id number] [place] [address] 60527- 5524 10 Dec, 2014 [facility] [id number] [place] [address] 33091- 9112 08 Dec, 2014 Skin tear 879.8 [facility] [id number] [place] [address] 65562- 5340 08 Dec, 2014 Routine gynecological examination V72.31 ; Breast cancer screening V76.10 and Family history of breast cancer in first degree relative V16.3 [facility] [id number] [place] [address] 60478- 7641 03 Dec, 2014 [facility] [address], [place] [address]- 1067 Dec, [facility] [id number] [place] [address] 41926- 1305 Nov, [facility] [address], [place] [address]- 0237 Nov, [facility] [id number] [place] [address] 46307- 9095 Nov, Poor balance 781.99 and Vascular dementia, uncomplicated 290.40 [facility] [id number] [place] [address] 44112- 1603 Nov, [facility] [id number] [place] [address] 41276- 3419 Nov, Major depression, recurrent 296.30 and Anxiety, generalized 300.02 [facility] [address] 67089- 9764 Nov, [facility] [id number] [place] [address] 27667- 5830 Nov, [facility] [id number] [place] [address] 34562- 2224 Nov, [facility] [id number] [place] [address] 93236- 6539 Nov, [facility] [id number] [place] [address] 61741- 6390 Nov, Vascular dementia, uncomplicated 290.40 and Lumbago 724.2 [facility] [id number] [place] [address] 83646- 7991 Nov, [facility] [id number] [place] [address] 85931- 3516 Nov, [facility] [id number] [place] [address] 84085- 3939 Nov, [facility] [id number] [place] [address] 99566- 8648 Oct, [facility] [id number] [place] [address] 16358- 0061 Oct, [facility] [id number] [place] [address] 07031- 0979 Oct, [facility] [id number] [place] [address] 16504- 3933 Oct, COPD (chronic obstructive pulmonary disease) 496 and Hyperlipidemia 272.4 [facility] [address], [place] [address]- 1770 Oct, Major depression, recurrent 296.30 and Anxiety, generalized 300.02 [facility] [address], [place] [address]- 2374 Oct, [facility] [id number] [place] [address] 26968- 2358 Oct, [facility] [id number] [place] [address] 31767- 3864 Oct, [facility] [id number] [place] [address] 10140- 0552 Sep, Lumbago 724.2 and Anxiety state, unspecified 300.00 [facility] [id number] [place] [address] 60460- 7688 Sep, [facility] [id number] [place] [address] 01742- 2546 Sep, [facility] [address], [place] [address]- 4999 August, [facility] [address], [place] [address]- 1759 August, Major depression, recurrent 296.30 ; Anxiety, generalized 300.02 and No condition on [place] II V71.09 [facility] [address], [place] [address]- 9515 August, [facility] [address], [place] [address]- 3752 August, [facility] [id number], [place] [address]- 5372 Jul, [facility] [address], [place] [address]- 9660 Jul, [facility] [id number] [place] [address] 28676- 6431 13 Jul, 2014 [facility] [place] [facility] [address] [id number] [place] [address]- 4672 30 Jun, 2014 [facility] [place] [facility] [address] [id number] [place] [address]- 5016 30 Jun, 2014 [facility] [place] [facility] [address] [id number] [place] [address]- 3127 27 Jun, 2014 [facility] [place] [facility] [address] [id number] [place] [address]- 3047 27 Jun, 2014 [facility] [place] [facility] [address] [id number] [place] [address]- 2051 Jun, [facility] [place] [facility] [address] [id number] [place] [address]- 1954 Jun, [facility] [place] [facility] [address] [id number] [place] [address]- 3014 Jun, [facility] [place] [facility] [address] [id number] [place] [address]- 8191 17 Jun, 2014 [facility] [place] [facility] [address] [id number] [place] [address]- 5728 Jun, [facility] [place] [facility] [address] [id number] [place] [address]- 1459 Jun, [facility] [place] [facility] [address] [id number] [place] [address]- 1978 10 Jun, 2014 [facility] [place] [facility] [address] [id number], [place] [address]- 5638 10 Jun, 2014 [facility] [place] [facility] [address] [id number] [place] [address]- 3535 07 Jun, 2014 [facility] [place] [facility] [address] [id number] [place] [address]- 1406 07 Jun, 2014 [facility] [place] [facility] [address] [id number] [place] [address]- 2546 02 Jun, 2014 [facility] [place] [facility] [address] [facility] [id number] [place] [address]- 8555 Jun, [facility] [place] [facility] [address] [id number] [place] [address]- 3746 May, 2014 [facility] [place] [facility] [address] [facility] [id number] [place] [address]- 7856 May, 2014 [facility] [place] [facility] [address] [facility] [id number] [place] [address]- 3193 May, 2014 [facility] [place] [facility] [address] [facility] [id number] [place] [address]- 4152 May, 2014 [facility] [place] [facility] [address] [facility] [id number] [place] [address]- 7809 May, 2014 [facility] [place] [facility] [address] [facility] [id number] [place] [address]- 1109 May, 2014 [facility] [place] [facility] [address] [facility] [id number] [place] [address]- 9229 May, 2014 [facility] [place] [facility] [address] [facility] [id number] [place] [address]- 1680 May, 2014 [facility] [place] [facility] [address] [facility] [id number], [place] [address]- 9437 May, 2014 [facility] [place] [facility] [address] [facility] [id number], [place] [address]- 5238 May, 2014 [facility] [place] [facility] [address] [facility] [id number], [place] [address]- 2548 May, 2014 [facility] [place] [facility] [address] [facility] [id number] [place] [address]- 6463 May, 2014 [facility] [place] [facility] [address] [facility] [id number], [place] [address]- 8940 May, 2014 [facility] [place] [facility] [address] [facility] [id number], [place] [address]- 1201 May, 2014 [facility] [place] [facility] [address] [facility] [id number], [place] [address]- 4656 Apr, [facility] [place] [facility] [address] [id number] [place] [address]- 0432 Apr, [facility] [place] [facility] [address] [id number] [place] [address]- 7165 Apr, [facility] [place] [facility] [address] [id number] [place] [address] Apr, [facility] [place] [facility] [address] [id number] [place] [address] Apr, [facility] [place] [facility] [address] [id number] [place] [address] Apr, [facility] [place] [facility] [address] [id number] [place] [address] Apr, [facility] [place] [facility] [address] [id number] [place] [address] Apr, [facility] [place] [facility] [address] [id number] [place] [address] Apr, [facility] [place] [facility] [address] [id number] [place] [address] Apr, [facility] [place] [facility] [address] [facility] [id number] [place] [address] Apr, [facility] [place] [facility] [address] [id number] [place] [address] Apr, [facility] [place] [facility] [address] [id number] [place] [address] Mar, [facility] [place] [facility] [address] [id number] [place] [address] Mar, [facility] [place] [facility] [address] [id number] [place] [address] Mar, [facility] [place] [facility] [address] [id number] [place] [address]- [address] Mar, [facility] [place] [facility] [address] [id number] [place] [address]- [address] 29 Mar, 2014 [facility] [place] [facility] [address] [id number] [place] [address]- [address] Mar, [facility] [place] [facility] [address] [id number] [place] [address] Mar, [facility] [place] [facility] [address] [id number] [place] [address] Mar, [facility] [place] [facility] [address] [id number] [place] [address] 15 Mar, 2014 [facility] [place] [facility] [address] [id number] [place] [address] Mar, [facility] [place] [facility] [address] [id number] [place] [address] 15 Mar, 2014 [facility] [place] [facility] [address] [id number] [place] [address] 15 Mar, 2014 [facility] [place] [facility] [address] [id number] [place] [address] Mar, [facility] [place] [facility] [address] [id number] [place] [address]- [address] Mar, [facility] [place] [facility] [address] [id number] [place] [address] Mar, [facility] [place] [facility] [address] [id number] [place] [address] Mar, [facility] [place] [facility] [address] [id number] [place] [address] Mar, [facility] [place] [facility] [address] [id number] [place] [address] Mar, [facility] [place] [facility] [address] [id number] [place] [address] Mar, [facility] [place] [facility] [address] [id number] [place] [address] Mar, [facility] [place] [facility] [address] [id number] [place] [address] Feb, [facility] [place] [facility] [address] [id number] [place] [address]151 Feb, [facility] [place] [facility] [address] [id number] [place] [address] 04[address] Feb, [facility] [place] [facility] [address] [id number] [place] [address]- 5891 Feb, [facility] [place] [facility] [address] [id number] [place] [address]- 2009 Feb, [facility] [place] [facility] [address] [id number] [place] [address]- 3179 Feb, [facility] [place] [facility] [address] [id number] [place] [address]- 0738 Feb, [facility] [place] [facility] [address] [id number] [place] [address]- 1337 Feb, [facility] [place] [facility] [address] [id number] [place] [address]- 8719 Feb, [facility] [place] [facility] [address] [id number] [place] [address]- 3077 Feb, [facility] [place] [facility] [address] [id number], [place] [address] Feb, [facility] [place] [facility] [address] [id number], [place] [address] Feb, [facility] [place] [facility] [address] [id number] [place] [address]- 3447 Feb, [facility] [place] [facility] [address] [id number], [place] [address]- 134[address] Feb, [facility] [place] [facility] [address] [id number] [place] [address]- 5955 Feb, [facility] [place] [facility] [address] [id number] [place] [address]- 5053 Feb, [facility] [place] [facility] [address] [id number] [place] [address]- 5716 Feb, [facility] [place] [facility] [address] [id number] [place] [address]- 3480 Jan, [facility] [place] [facility] [address] [id number] [place] [address]- 6431 Jan, [facility] [place] [facility] [address] [id number] [place] [address]- 8021 Jan, [facility] [place] [facility] [address] [id number] [place] [address]- 2123 Jan, [facility] [place] [facility] [address] [id number] [place] [address]- 2021 Jan, [facility] [place] [facility] [address] [id number] [place] [address]- 2501 Jan, [facility] [place] [facility] [address] [id number] [place] [address]- 1786 Jan, [facility] [place] [facility] [address] [id number] [place] [address]- 9056 Jan, [facility] [place] [facility] [address] [id number] [place] [address]- 7905 Jan, [facility] [place] [facility] [address] [id number] [place] [address]- 4762 Jan, [facility] [place] [facility] [address] [id number] [place] [address]- 0005 Jan, [facility] [place] [facility] [address] [id number] [place] [address]- 8638 Dec, [facility] [place] [facility] [address] [id number] [place] [address]- 2874 Dec, [facility] [place] [facility] [address] [id number] [place] [address]- 4230 Nov, [facility] [place] [facility] [address] [id number] [place] [address]- 6514 Nov, [facility] [place] [facility] [address] [id number] [place] [address]- 3709 Nov, [facility] [place] [facility] [address] [id number] [place] [address]- 6000 Nov, [facility] [place] [facility] [address] [id number] [place] [address]- 3815 Nov, [facility] [place] [facility] [address] [id number] [place] [address]- 5623 Nov, [facility] [place] [facility] [address] [id number] [place] [address]- 0095 Nov, [facility] [place] [facility] [address] [id number] [place] [address]- 5939 Oct, [facility] [place] [facility] [address] [id number] [place] [address]- 7471 Oct, [facility] [place] [facility] [address] [id number] [place] [address]- 3058 Oct, [facility] [place] [facility] [address] [id number] [place] [address]- 4191 Oct, [facility] [place] [facility] [address] [id number] [place] [address]- 0651 Sep, [facility] [place] [facility] [address] [id number] [place] [address]- 6407 Sep, [facility] [place] [facility] [address] [id number] [place] [address]- 6668 Sep, [facility] [place] [facility] [address] [id number] [place] [address]- 7246 Sep, [facility] [place] [facility] [address] [id number] [place] [address]- 0176 Sep, [facility] [place] [facility] [address] [id number] [place] [address]- 0086 Sep, [facility] [place] [facility] [address] [id number] [place] [address]- 5428 Sep, [facility] [place] [facility] [address] [id number] [place] [address]- 5696 Sep, [facility] [place] [facility] [address] [id number] [place] [address]- 0165 Sep, [facility] [place] [facility] [address] [id number] [place] [address]- 6417 Sep, [facility] [place] [facility] [address] [id number] [place] [address]- 6144 Sep, [facility] [place] [facility] [address] [id number] [place] [address]- 6851 Sep, [facility] [place] [facility] [address] [id number] [place] [address]- 4536 Sep, [facility] [place] [facility] [address] [id number] [place] [address]- 9182 Sep, [facility] [place] [facility] [address] [id number] [place] [address]- 0805 August, [facility] [place] [facility] [address] [id number] [place] [address]- 7359 August, [facility] [place] [facility] [address] [id number] [place] [address]- 5068 August, [facility] [place] [facility] [address] [id number] [place] [address]- 6674 August, [facility] [place] [facility] [address] [id number] [place] [address]- 2707 August, [facility] [place] [facility] [address] [id number] [place] [address]- 2376 August, [facility] [place] [facility] [address] [id number] [place] [address]- 5521 August, [facility] [place] [facility] [address] [id number] [place] [address]- 9508 August, [facility] [address] [id number] [place] [address]- 9021 August, [facility] [address] [id number] [place] [address]- 2604 August, [facility] [address] [id number] [place] [address]- 7442 August, [facility] [address] [id number] [place] [address]- 4480 August, [facility] [address] [id number] [place] [address]- 6239 August, [facility] [address] [id number] [place] [address]- 1999 August, [facility] [address] [id number] [place] [address]- 6080 August, [facility] [address] [id number] [place] [address]- 4220 August, [facility] [address] [id number] [place] [address]- 6397 August, [facility] [address] [id number] [place] [address]- 9643 August, [facility] [address] [id number] [place] [address]- 2548 August, [facility] [address] [id number] [place] [address]- 8092 Jul, [facility] [place] [facility] [address] [id number] [place] [address]- 2515 Jul, [facility] [address] [id number] [place] [address]- 9076 Jul, [facility] [address] [id number] [place] [address]- 0223 Jul, [facility] [place] [facility] [address] [id number] [place] [address]- 7054 Jun, [facility] [place] [facility] [address] [id number] [place] [address]- 4716 Jun, [facility] [place] [facility] [address] [id number] [place] [address]- 8689 Jun, [facility] [place] [facility] [address] [id number] [place] [address]- 5416 Jun, [facility] [place] [facility] [address] [id number] [place] [address]- 0564 Jun, [facility] [place] [facility] [address] [id number] [place] [address]- 0966 Jun, [facility] [place] [facility] [address] [id number] [place] [address]- 1116 Jun, [facility] [place] [facility] [address] [id number] [place] [address]- 5833 Jun, [facility] [place] [facility] [address] [id number] [place] [address]- 8625 Jun, [facility] [place] [facility] [address] [id number] [place] [address]- 8010 Jun, [facility] [place] [facility] [address] [id number] [place] [address]- 0055 May, [facility] [place] [facility] [address] [id number] [place] [address]- 7206 May, [facility] [place] [facility] [address] [id number] [place] [address]- 1132 May, [facility] [place] [facility] [address] [id number] [place] [address]- 4136 May, [facility] [place] [facility] [address] [id number] [place] [address]- 5787 May, [facility] [place] [facility] [address] [id number] [place] [address]- 2905 May, [facility] [place] [facility] [address] [id number] [place] [address]- 7179 May, [facility] [place] [facility] [address] [id number] [place] [address]- 3146 May, [facility] [place] [facility] [address] [id number] [place] [address]- 9975 May, [facility] [place] [facility] [address] [id number] [place] [address]- 6388 18 May, 2013 [facility] [place] [facility] [address] [id number] [place] [address]- 7987 May, [facility] [place] [facility] [address] [facility] [id number] [place] [address]- 4491 17 May, 2013 [facility] [place] [facility] [address] [id number] [place] [address]- 8281 May, [facility] [place] [facility] [address] [id number] [place] [address]- 7238 May, [facility] [place] [facility] [address] [facility] [id number] [place] [address]- 6715 10 May, 2013 [facility] [place] [facility] [address] [facility] [id number] [place] [address]- 4692 May, [facility] [place] [facility] [address] [facility] [id number] [place] [address]- 6965 May, [facility] [place] [facility] [address] [facility] [id number] [place] [address]- 9313 Apr, [facility] [place] [facility] [address] [id number] [place] [address]- 0778 15 Apr, 2013 [facility] [place] [facility] [address] [facility] [id number] [place] [address]- 7508 15 Apr, 2013 [facility] [place] [facility] [address] [facility] [id number] [place] [address]- 2546 Apr, [facility] [address] [id number] [place] [address]- 9273 Apr, [facility] [place] [facility] [address] [id number] [place] [address]- 5566 Apr, [facility] [place] [facility] [address] [id number] [place] [address]- 7113 Apr, [facility] [place] [facility] [address] [id number] [place] [address]- 8105 Mar, [facility] [place] [facility] [address] [id number] [place] [address]- 1617 Mar, [facility] [place] [facility] [address] [id number] [place] [address]- 2780 Mar, [facility] [place] [facility] [address] [id number] [place] [address] Mar, [facility] [place] [facility] [address] [id number] [place] [address]- 9011 Mar, [facility] [place] [facility] [address] [id number] [place] [address]- 3154 Mar, [facility] [place] [facility] [address] [id number] [place] [address]- 7601 Mar, [facility] [place] [facility] [address] [id number] [place] [address]- 6279 Mar, [facility] [place] [facility] [address] [id number], [place] [address]- 9834 Mar, [facility] [place] [facility] [address] [id number] [place] [address]- 3713 Mar, [facility] [place] [facility] [address] [id number] [place] [address]- 0496 Mar, [facility] [place] [facility] [address] [id number] [place] [address]- 3297 Feb, [facility] [place] [facility] [address] [id number] [place] [address]- 2431 22 Feb, 2013 [facility] [address] [id number] [place] [address]- 1024 20 Feb, 2013 [facility] [address] [id number] [place] [address]- 1937 20 Feb, 2013 [facility] [address] [id number] [place] [address]- 2277 19 Feb, 2013 [facility] [address] [id number] [place] [address]- 0490 19 Feb, 2013 [facility] [address] [id number] [place] [address]- 8253 15 Feb, 2013 [facility] [address] [id number] [place] [address]- 5553 14 Feb, 2013 [facility] [address] [id number] [place] [address]- 0210 14 Feb, 2013 [facility] [address] [id number] [place] [address]- 0465 13 Feb, 2013 [facility] [address] [id number] [place] [address]- 1360 13 Feb, 2013 [facility] [address] [id number] [place] [address]- 5980 12 Feb, 2013 [facility] [address] [id number] [place] [address]- 7626 12 Feb, 2013 [facility] [address] [id number] [place] [address]- 0218 Feb, [facility] [place] [facility] [address] [id number] [place] [address]- 1268 05 Feb, 2013 [facility] [place] [facility] [address] [id number] [place] [address]- 0359 05 Feb, 2013 [facility] [address] [id number] [place] [address]- 0950 Jan, [facility] [place] [facility] [address] [id number] [place] [address]- 0113 Jan, [facility] [place] [facility] [address] [id number] [place] [address]- 6074 Jan, [facility] [place] [facility] [address] [id number] [place] [address]- 1384 Jan, [facility] [place] [facility] [address] [id number] [place] [address]- 0276 Jan, [facility] [place] [facility] [address] [id number] [place] [address]- 4940 Jan, [facility] [place] [facility] [address] [id number] [place] [address]- 2049 Jan, [facility] [place] [facility] [address] [id number] [place] [address]- 9873 Jan, [facility] [place] [facility] [address] [id number], [place] [address]- 0356 Jan, [facility] [place] [facility] [address] [id number] [place] [address]- 4112 27 Dec, 2012 [facility] [place] [facility] [address] [id number], [place] [address]- 3869 20 Dec, 2012 [facility] [place] [facility] [address] [id number], [place] [address]- 9401 19 Dec, 2012 [facility] [place] [facility] [address] [id number], [place] [address]- 3333 10 Dec, 2012 [facility] [place] [facility] [address] [id number] [place] [address]- 4692 04 Dec, 2012 [facility] [place] [facility] [address] [id number], [place] [address]- 7412 03 Dec, 2012 [facility] [place] [facility] [address] [id number], [place] [address]- 6690 Nov, [facility] [place] [facility] [address] [id number], [place] [address]- 0575 Nov, [facility] [place] [facility] [address] [id number] [place] [address]- 7246 Nov, [facility] [place] [facility] [address] [id number] [place] [address]- 8232 Nov, [facility] [place] [facility] [address] [id number] [place] [address]- 6118 Nov, [facility] [place] [facility] [address] [id number] [place] [address]- 2198 Nov, [facility] [place] [facility] [address] [id number] [place] [address]- 9607 Nov, [facility] [place] [facility] [address] [id number] [place] [address]- 0822 Nov, [facility] [place] [facility] [address] [id number] [place] [address]- 6041 Nov, [facility] [place] [facility] [address] [id number] [place] [address]- 0536 Nov, [facility] [place] [facility] [address] [id number] [place] [address]- 2334 Oct, [facility] [place] [facility] [address] [id number] [place] [address]- 1416 Oct, [facility] [place] [facility] [address] [id number] [place] [address]- 1418 Oct, [facility] [place] [facility] [address] [id number] [place] [address]- 5183 Oct, [facility] [place] [facility] [address] [id number] [place] [address]- 9402 Oct, [facility] [place] [facility] [address] [id number] [place] [address]- 7189 Oct, [facility] [place] [facility] [address] [id number] [place] [address]- 4357 Oct, [facility] [place] [facility] [address] [id number] [place] [address]- 1655 Oct, [facility] [place] [facility] [address] [id number] [place] [address]- 3725 Sep, [facility] [place] [facility] [address] [id number] [place] [address]- 1624 Sep, [facility] [place] [facility] [address] [id number] [place] [address]- 6793 Sep, [facility] [place] [facility] [address] [id number] [place] [address]- 0370 Sep, [facility] [place] [facility] [address] [id number] [place] [address]- 4184 Sep, [facility] [place] [facility] [address] [id number] [place] [address]- 6410 Sep, [facility] [place] [facility] [address] [id number] [place] [address]- 3756 Sep, [facility] [place] [facility] [address] [id number] [place] [address]- 7010 Sep, [facility] [place] [facility] [address] [id number] [place] [address]- 7750 August, [facility] [place] [facility] [address] [id number] [place] [address]- 6692 August, [facility] [place] [facility] [address] [id number] [place] [address]- 9586 August, [facility] [place] [facility] [address] [id number] [place] [address]- 5593 August, [facility] [place] [facility] [address] [id number] [place] [address]- 3124 August, [facility] [place] [facility] [address] [id number] [place] [address]- 7586 Jul, [facility] [place] [facility] [address] [id number] [place] [address]- 2950 Jul, [facility] [address] [id number] [place] [address]- 8886 Jul, [facility] [place] [facility] [address] [id number] [place] [address]- 6802 Jul, [facility] [address] [facility] [id number] [place] [address]- 8880 Jul, [facility] [place] [facility] [address] [id number] [place] [address]- 2295 Jun, [facility] [address] [id number] [place] [address]- 3264 18 Jun, 2012 [facility] [address] [id number] [place] [address] 15 Jun, 2012 [facility] [address] [id number] [place] [address] 14 Jun, 2012 [facility] [place] [facility] [address] [id number] [place] [address] Jun, [facility] [place] [facility] [address] [id number] [place] [address] Jun, [facility] [place] [facility] [address] [facility] [id number] [place] [address] Jun, [facility] [place] [facility] [address] [id number], [place] [address] Jun, [facility] [place] [facility] [address] [id number], [place] [address] Jun, [facility] [place] [facility] [address] [id number] [place] [address] May, [facility] [place] [facility] [address] [id number] [place] [address] May, [facility] [place] [facility] [address] [facility] [id number] [place] [address] May, [facility] [place] [facility] [address] [id number] [place] [address] May, [facility] [address] [id number] [place] [address] Apr, [facility] [address] [id number] [place] [address] Apr, [facility] [address] [id number] [place] [address] Apr, [facility] [address] [id number] [place] [address] Apr, [facility] [address] [id number] [place] [address] Apr, [facility] [address] [id number] [place] [address] Apr, [facility] [address] [id number] [place] [address] Apr, [facility] [address] [id number] [place] [address] Mar, [facility] [address] [place] [id number] Mar, [facility] [address] [id number] [place] [address] Mar, [facility] [address] [id number] [place] [address] Mar, [facility] [address] [id number] [place] [address] Mar, [facility] [address] [id number] [place] [address]- [address] Mar, [facility] [address] [id number] [place] [address] Mar, [facility] [address] [id number] [place] [address] Mar, [facility] [place] [facility] [address] [id number] [place] [address] Mar, [facility] [place] [facility] [address] [id number] [place] [address]- [address] Mar, [facility] [place] [facility] [address] [id number] [place] [address] Mar, [facility] [place] [facility] [address] [id number] [place] [address]- [address] Mar, [facility] [place] [facility] [address] [id number] [place] [address]- [address] Mar, [facility] [place] [facility] [address] [id number] [place] [address] Mar, [facility] [place] [facility] [address] [id number] [place] [address] Mar, [facility] [place] [facility] [address] [id number] [place] [address] Mar, [facility] [place] [facility] [address] [id number] [place] [address] Mar, [facility] [place] [facility] [address] [id number] [place] [address] Feb, [facility] [place] [facility] [address] [id number] [place] [address] 1610 Feb, [facility] [place] [facility] [address] [id number] [place] [address] Feb, [facility] [place] [facility] [address] [id number] [place] [address] Feb, [facility] [place] [facility] [address] [id number] [place] [address] Feb, [facility] [place] [facility] [address] [id number] [place] [address]- 279[address] Feb, [facility] [place] [facility] [address] [id number] [place] [address]- [address] Feb, [facility] [place] [facility] [address] [id number] [place] [address]- 115[address] Feb, [facility] [place] [facility] [address] [id number], [place] [address] Feb, [facility] [place] [facility] [address] [facility] [id number] [place] [address] Feb, [facility] [place] [facility] [address] [id number], [place] [address] Feb, [facility] [place] [facility] [address] [id number] [place] [address]- 38[address] Feb, [facility] [place] [facility] [address] [id number], [place] [address] Feb, [facility] [place] [facility] [address] [facility] [id number], [place] [address]- [address] Feb, [facility] [place] [facility] [address] [id number], [place] [address] Feb, [facility] [place] [facility] [address] [id number], [place] [address]- [address] Feb, [facility] [place] [facility] [address] [facility] [id number], [place] [address] Jan, [facility] [place] [facility] [address] [id number], [place] [address] Jan, [facility] [place] [facility] [address] [id number], [place] [address] Jan, [facility] [place] [facility] [address] [id number], [place] [address] Jan, [facility] [place] [facility] [address] [facility] [id number], [place] [address]- [address] Jan, [facility] [place] [facility] [address] [facility] [id number], [place] [address] Jan, [facility] [place] [facility] [address] [id number] [place] [address] 24 Jan, 2012 [facility] [place] [facility] [address] [id number] [place] [address]- [address] 24 Jan, 2012 [facility] [place] [facility] [address] [id number] [place] [address]- 4827 Jan, [facility] [place] [facility] [address] [id number] [place] [address]- 6485 Jan, [facility] [place] [facility] [address] [id number] [place] [address]- 86[address] Jan, [facility] [place] [facility] [address] [id number] [place] [address]- 2218 Jan, [facility] [place] [facility] [address] [id number] [place] [address]- 4094 Jan, [facility] [place] [facility] [address] [id number] [place] [address]- [address] Jan, [facility] [place] [facility] [address] [id number] [place] [address]- 260[address] 08 Jan, 2012 [facility] [place] [facility] [address] [id number] [place] [address]- [address] 05 Jan, 2012 [facility] [place] [facility] [address] [facility] [id number] [place] [address]- [address] 04 Jan, 2012 [facility] [place] [facility] [address] [id number] [place] [address]- 9517 21 Dec, 2011 [facility] [place] [facility] [address] [id number] [place] [address]- [address] 20 Sep, 2011 [facility] [place] [facility] [address] [id number] [place] [address]- 5565 18 Sep, 2011 [facility] [place] [facility] [address] [id number] [place] [address]- 2607 18 Sep, 2011 [facility] [place] [facility] [address] [id number] [place] [address] Dec, [facility] [place] [facility] [address] [id number] [place] [address] 10 Dec, 2011 [facility] [place] [facility] [address] [id number] [place] [address] Dec, [facility] [place] [facility] [address] [id number] [place] [address] Dec, [facility] [place] [facility] [address] [id number] [place] [address] Nov, [facility] [place] [facility] [address] [id number] [place] [address] Nov, [facility] [place] [facility] [address] [id number] [place] [address] Nov, [facility] [place] [facility] [address] [id number] [place] [address] Nov, [facility] [place] [facility] [address] [id number] [place] [address]- [address] Nov, [facility] [place] [facility] [address] [id number] [place] [address] 39[address] Nov, [facility] [place] [facility] [address] [id number] [place] [address] Oct, [facility] [place] [facility] [address] [id number] [place] [address]14 Oct, [facility] [place] [facility] [address] [id number] [place] [address]- [address] Oct, [facility] [place] [facility] [address] [id number] [place] [address] Oct, [facility] [place] [facility] [address] [id number] [place] [address]- 3556 Oct, [facility] [place] [facility] [address] [id number] [place] [address]- 92[address] Oct, [facility] [place] [facility] [address] [id number] [place] [address]- 8564 Oct, [facility] [place] [facility] [address] [id number] [place] [address] 1394 Sep, [facility] [place] [facility] [address] [id number] [place] [address] Sep, [facility] [place] [facility] [address] [id number] [place] [address]- 1706 Sep, [facility] [place] [facility] [address] [id number] [place] [address]- 7978 Sep, [facility] [place] [facility] [address] [id number] [place] [address]- 8627 Sep, [facility] [place] [facility] [address] [id number] [place] [address]- [address] 15 Sep, 2011 [facility] [place] [facility] [address] [id number] [place] [address]- 29[address] Sep, [facility] [place] [facility] [address] [id number] [place] [address]- 1877 Sep, [facility] [place] [facility] [address] [id number] [place] [address]- 8567 Sep, [facility] [place] [facility] [address] [id number] [place] [address]- [address] Sep, [facility] [place] [facility] [address] [id number] [place] [address]- 8482 August, [facility] [place] [facility] [address] [id number] [place] [address]- 7[address] August, [facility] [place] [facility] [address] [id number] [place] [address]- 277[address] August, [facility] [place] [facility] [address] [id number] [place] [address]- 1825 August, [facility] [place] [facility] [address] [id number] [place] [address]- 8[address] August, [facility] [place] [facility] [address] [id number] [place] [address]- 6[address] Jul, [facility] [address] [id number] [place] [address] Jul, [facility] [place] [facility] [address] [id number] [place] [address]- 6[address] Jul, [facility] [address] [id number] [place] [address] 17 Jul, 2011 [facility] [address] [id number] [place] [address]657 Jul, [facility] [address] [id number] [place] [address] 3567 Jul, [facility] [address] [id number] [place] [address] Jul, [facility] [address] [id number] [place] [address]- 0658 Jun, [facility] [address] [id number] [place] [address]- 57[address] Jun, [facility] [address] [id number] [place] [address]- 609[address] Jun, [facility] [address] [id number] [place] [address]- 3587 Jun, [facility] [place] [facility] [address] [id number] [place] [address]- 9482 Jun, [facility] [address] [id number] [place] [address]- 7287 May, [facility] [place] [facility] [address] [id number] [place] [address] May, [facility] [place] [facility] [address] [id number] [place] [address] May, [facility] [place] [facility] [address] [id number] [place] [address]- 3027 May, [facility] [place] [facility] [address] [id number] [place] [address]- 0864 May, [facility] [place] [facility] [address] [id number] [place] [address]- 0927 May, [facility] [place] [facility] [address] [facility] [id number] [place] [address] Apr, [facility] [place] [facility] [address] [id number] [place] [address]- 8937 Mar, [facility] [place] [facility] [address] [id number] [place] [address]- 4758 Feb, [facility] [place] [facility] [address] [facility] [id number] [place] [address]- 2938 Feb, [facility] [place] [facility] [address] [facility] [id number] [place] [address]- 5[address] Feb, [facility] [place] [facility] [address] [id number] [place] [address]- 7007 Feb, [facility] [place] [facility] [address] [id number] [place] [address]- 0649 Jan, [facility] [place] [facility] [address] [facility] [id number] [place] [address]- 0086 Jan, [facility] [place] [facility] [address] [facility] [id number], [place] [address]- 9897 Jan, [facility] [place] [facility] [address] [id number], [place] [address]- 9813 Jan, [facility] [place] [facility] [address] [id number] [place] [address]- 3246 14 Jan, 2011 [facility] [place] [facility] [address] [facility] [id number], [place] [address]- 1056 Dec, [facility] [place] [facility] [address] [facility] [id number], [place] [address]- 4885 Oct, [facility] [place] [facility] [address] [id number] [place] [address]- 5949 13 Aug, 2010 [facility] [address] [id number] [place] [address]- 1323 29 Mar, 2010 [facility] [address] [id number] [place] [address]- 2546 27 Mar, 2010 [facility] [address] [id number] [place] [address]- 1756 16 Mar, 2010 [facility] [address] [id number] [place] [address] 254 15 Mar, 2010 [facility] [address] [id number] [place] [address], [place] [address]- 8262 15 Mar, 2010 [facility] [address] [id number] [place] [address]- 4843 08 Mar, 2010 [facility] [address] [facility] [id number] [place] [address]- 4811 03 Mar, 2010 [facility] [address] [id number] [place] [address]- 6348 24 Feb, 2010 [facility] [address] [id number] [place] [address]- 9246 24 Feb, 2010 [facility] [address] [facility] [id number] [place] [address]- 1323 15 Feb, 2010 [facility] [address] [id number] [place] [address]- 6722 Jan, [facility] [address] [id number] [place] [address]- 8249 18 Jan, 2010 [facility] [address] [id number] [place] [address]- 5976 18 Jan, 2010 [facility] [address] [facility] [id number] [place] [address]- 2425 Nov, [facility] [address] [id number] [place] [address]- 8410 14 Sep, 2009 [facility] [place] [facility] [address] [id number], [place] [address]- 1671 18 Aug, 2009 [facility] [place] [facility] [address] [id number] [place] [address]- 5050 30 Mar, 2009 [facility] [place] [facility] [address] [id number][place] [address]36 07 Mar, 2009 [facility] [place] [facility] [address] [id number], [place] [address]- 9445 17 Feb, 2009 [facility] [place] [facility] [address] [id number] [place] [address]- 4098 Feb, [facility] [place] [facility] [address] [id number], [place] [address]- 6762 Feb, [facility] [place] [facility] [address] [facility] [id number], [place] [address]- 3822 Feb, [facility] [place] [facility] [address] [id number], [place] [address]- 4497 Feb, [facility] [place] [facility] [address] [facility] [id number], [place] [address]- 2493 Jan, [facility] [place] [facility] [address] [facility] [id number], [place] [address]- 0967 Jan, [facility] [place] [facility] [address] [facility] [id number], [place] [address]- 4686 Jan, [facility] [place] [facility] [address] [id number], [place] [address]- 4212 Jan, [facility] [place] [facility] [address] [id number], [place] [address]- 4695 Nov, [facility] [place] [facility] [address] [id number], [place] [address]- 3674 Sep, [facility] [place] [facility] [address] [facility] [id number], [place] [address]- 3434 August, [facility] [place] [facility] [address] [id number], [place] [address]- 7379 Jul, [facility] [address] [facility] [id number] [place] [address]- 4491 May, IMMUNIZATIONS No Known Immunizations SOCIAL HISTORY [...]
--- OUTSIDE RECORDS SUMMARY | 2018-01-01 13:14 | XMS REPORT ---
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 Active 14758242 Problem Colon polyp K63.5 Active 33697850 Problem Bilateral low back pain without sciatica M54.5 Active 632746762 Problem Screening breast examination Z12.39 Active 495906215 Problem Postmenopausal Z78.0 Active 71420382 Problem Osteopenia M85.80 Active 850033161 Problem Cigarette nicotine dependence without complication F17.210 Active 43807481 Problem Type 2 diabetes mellitus with diabetic peripheral angiopathy without gangrene E11.51 Active 153320999 Problem Vascular dementia without behavioral disturbance F01.50 Active [id number] Problem Unspecified atherosclerosis of [place] arteries of extremities, unspecified extremity I70.209 Active 036820290278971 Problem Arthritis M19.90 Active 7071630 Problem Chronic atrial fibrillation I48.2 Active 188563865 Problem Chronic obstructive pulmonary disease with acute lower respiratory infection J44.0 Active 193163562 Problem Other chronic pancreatitis K86.1 Active 336616844 Problem Stress incontinence of urine N39.3 Active 29607678 Problem Controlled type 2 diabetes mellitus without complication, without long -term current use of insulin E11.9 Active 011459091 Problem Unspecified psychosis F29 Active 89924637 Problem Xeroderma Q80.9 Active 90589008 Problem COPD (chronic obstructive pulmonary disease) J44.9 Active 92432428 Problem Dementia without behavioral disturbance, unspecified dementia type F03.90 Active 16609660 Problem Gastroparesis K31.84 Active 761211531 Problem Type 2 diabetes mellitus with diabetic neuropathy, without long-term current use of insulin E11.40 Active 37769312 Problem Osteoporosis M81.0 Active 95552641 Problem Atherosclerosis of [place] artery of both lower extremities with intermittent claudication I70.213 Active 837726348900449 Problem Hyperlipidemia E78.5 Active 18388505 Problem Diabetic polyneuropathy associated with type 2 diabetes mellitus E11.42 Active 49767184 Problem Essential tremor G25.0 Active 94195791 Problem Atherosclerotic heart disease of [place]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 I25.118 Active 1611041929076 Problem Generalized anxiety disorder F41.1 Active 637322872 Problem Gastroesophageal reflux disease, esophagitis presence not specified K21.9 Active 342414999 Problem Coronary artery disease involving [place] coronary artery of [place] heart with other form of angina pectoris I25.118 Active 5770925199406 Problem Postconcussion syndrome F07.81 Active 98312942 Problem Chronic pain syndrome G89.4 Active 409407513 Problem Migraine without aura and without status migrainosus, not intractable G43.009 Active 036113302 Problem Paroxysmal atrial fibrillation I48.0 Active 699809841 Problem Migraine without aura and with status migrainosus, not intractable G43.001 Active 066348854 Problem Cervicalgia M54.2 Active 5947966850494 Problem Acute exacerbation of chronic obstructive pulmonary disease (COPD) J44.1 Active 673877136 Problem Major depressive disorder, recurrent episode, moderate F33.1 Active 657480042 Problem Crohn''s disease without complication, unspecified gastrointestinal tract location K50.90 Active 30241941 Problem Chronic fatigue R53.82 Active 85614174 Problem Bipolar affective disorder, currently depressed, moderate F31.32 Active 890613887 ALLERGIES No Information ENCOUNTERS Encounter Location Date Diagnosis [facility] [id number], [place] [address] Nov, [facility] [address] [place] [address] Oct, [facility] [id number], [place] [address] Oct, [facility] [id number], [place] [address] 1467 Sep, [facility] [address] [address] 27 Sep, 2017 [facility] [address], [place] [address] Sep, [facility] [address], [place] [address] 6[address] 18 Sep, 2017 Encounter for well woman exam with routine gynecological exam Z01.419 ; Screening for STDs (sexually transmitted diseases) Z11.3 ; Screening breast examination Z12.31 and Overweight (BMI 25.0-29.9) E66.3 [facility] [address], [place] [address] 11 Sep, 2017 [facility] [address], [place] [address] Sep, [facility] [id number], [place] [address] 10[address] Sep, [facility] [address], [place] [address] 6667 August, [facility] [address], [place] [address] August, [facility] [address], [place] [address] August, Type 2 diabetes mellitus with diabetic neuropathy, without long-term current use of insulin E11.40 and Sprain of right ankle, unspecified ligament, initial encounter S93.401A [facility] [address], [place] [address] 1159 August, [facility] [address], [place] [address] 9231 August, [facility] [address], [place] [address]- 1755 August, [facility] [address], [place] [address] August, Gastroesophageal reflux disease, esophagitis presence not specified K21.9 [facility] [id number] [place] [address] 43403- 8806 August, [facility] [id number] [place] [address] 19564- 9105 August, [facility] [id number] [place] [address] 59805- 9452 August, [facility] [address] [address]- [address] August, Type 2 diabetes mellitus with diabetic neuropathy, without long-term current use of insulin E11.40 and Elevated liver enzymes R74.8 [facility] [id number] [place] [address] 21811- 2200 Jul, [facility] [address] 27933- 1681 Jul, Cough R05 [facility] [address] 85585- 1652 Jul, [facility] [id number] [place] [address] 93033- 6849 Jul, [facility] [id number] [place] [address] 09043- 7526 Jul, Bipolar affective disorder, currently depressed, moderate F31.32 ; Vascular dementia without behavioral disturbance F01.50 and Generalized anxiety disorder F41.1 [facility] [id number] [place] [address] 32113- 8768 Jul, [facility] [id number] [place] [address] 28639- 5044 Jul, Type 2 diabetes mellitus with diabetic neuropathy, without long-term current use of insulin E11.40 and Elevated liver enzymes R74.8 [facility] [id number] [place] [address] 22947- 4135 Jul, [facility] [address] 7[address]- 5157 Jul, [facility] [id number] [place] [address] 30686- 8805 Jul, [facility] [id number] [place] [address] 41687- 3517 Jul, Post-menopausal Z78.0 [facility] [id number] [place] [address] 49279- 0093 Jul, Stress incontinence of urine N39.3 [facility] [id number] [place] [address] 55917- 0941 Jul, [facility] [id number] [place] [address] 25672- 7497 Jul, [facility] [id number] [place] [address] 43343- 8546 Jul, Stress incontinence of urine N39.3 and Cough R05 [facility] [id number] [place] [address] 51743- 2318 Jul, [facility] [id number] [place] [address] 62084- 9197 Jul, [facility] [id number] [place] [address] 68456- 5492 Jul, [facility] [address] [place] [address] 93272- 6298 Jul, Gastroesophageal reflux disease, esophagitis presence not specified K21.9 [facility] [id number] [place] [address] 92261- 6576 Jun, Diabetic polyneuropathy associated with type 2 diabetes mellitus E11.42 [facility] [id number] [place] [address] 16037- 9541 Jun, Diabetic polyneuropathy associated with type 2 diabetes mellitus E11.42 ; Coronary artery disease involving [place] coronary artery of [place] heart with other form of angina pectoris I25.118 and Paroxysmal atrial fibrillation I48.0 [facility] [id number], [place] [address] 2014 Jun, [facility] [address], [place] [address]- 9705 Jun, [facility] [address], [place] [address]- 0786 Jun, Gastroenteritis K52.9 [facility] [address] [place] [address] 22353- 0153 Jun, Gastroenteritis K52.9 [facility] [address], [place] [address]- 7364 Jun, [facility] [address] [place] [address] 20149- 3605 Jun, [facility] [address], [place] [address]- 4388 Jun, Sprain of right ankle, unspecified ligament, initial encounter S93.401A ; Type 2 diabetes mellitus with diabetic neuropathy, without long-term current use of insulin E11.40 ; Atherosclerosis of [place] artery of both lower extremities with intermittent claudication I70.213 ; Atherosclerotic heart disease of [place]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 I25.118 ; Chronic atrial fibrillation I48.2 and Crohn''s disease without complication, unspecified gastrointestinal tract location K50.90 [facility] [address], [place] [address] 17 Jun, 2017 Cough R05 and Chronic obstructive pulmonary disease with acute lower respiratory infection J44.0 [facility] [address], [place] [address]- 5195 16 Jun, 2017 [facility] [address] [place] [address] 64755- 5070 15 Jun, 2017 Coughing R05 ; Unspecified atherosclerosis of [place] arteries of extremities, unspecified extremity I70.209 ; Type 2 diabetes mellitus with diabetic peripheral angiopathy without gangrene E11.51 ; Crohn''s disease without complication, unspecified gastrointestinal tract location K50.90 ; Other chronic pancreatitis K86.1 and Chronic atrial fibrillation I48.2 [facility] [address], [place] [address] Jun, [facility] [address] [place] [address] 15747- 0869 Jun, Bipolar affective disorder, currently depressed, moderate F31.32 ; Vascular dementia without behavioral disturbance F01.50 and Generalized anxiety disorder F41.1 [facility] [id number] [place] [address] 51306- 9679 May, Generalized anxiety disorder F41.1 [facility] [id number] [place] [address] 83056- 2762 May, [facility] [id number] [place] [address] 59130- 4333 May, [facility] [id number] [place] [address] 38036- 3272 May, Coughing R05 [facility] [address] [place] [address] 99370- 8676 May, [facility] [id number] [place] [address] 75086- 2668 May, Bipolar affective disorder, currently depressed, moderate F31.32 ; Vascular dementia without behavioral disturbance F01.50 and Generalized anxiety disorder F41.1 [facility] [address] [place] [address] 73026- 5161 Apr, Generalized anxiety disorder F41.1 [facility] [address], [place] [address]- 4236 Apr, [facility] [id number] [place] [address] 05918- 8000 Apr, Vascular dementia without behavioral disturbance F01.50 ; Generalized anxiety disorder F41.1 and Bipolar affective disorder, currently depressed, moderate F31.32 [facility] [address] [place] [address] 06635- 8140 Apr, Generalized anxiety disorder F41.1 [facility] [id number] [place] [address] 92267 -7123 Apr, Cough R05 and Acute exacerbation of chronic obstructive pulmonary disease (COPD) J44.1 [facility] [id number] [place] [address] 67580- 0804 Apr, [facility] [address] [address]677 -2757 Mar, Cough R05 and Cigarette nicotine dependence without complication F17.210 [place] [address] 43142- 4263 Mar, [place] [id number] [place] [address] 54744- 2465 Feb, Generalized anxiety disorder F41.1 ; Major depressive disorder, recurrent episode, moderate F33.1 ; Vascular dementia without behavioral disturbance F01.50 and Unspecified psychosis F29 [place] [id number] [place] [address] 56605- 6268 Feb, [address] [address] [address] 39884- 4859 Feb, [place] [facility] [id number] [place] [address] 43363- 6247 Feb, Generalized anxiety disorder F41.1 [place] [id number] [place] [address] 74076- 9275 Feb, Generalized anxiety disorder F41.1 [place] [id number] [place] [address] 60774- 5524 Feb, Dizziness R42 ; Chronic fatigue R53.82 ; Postconcussion syndrome F07.81 ; Fall, initial encounter W19.XXXA and Disorientation R41.0 [place] [id number] [place] [address] 34941- 2914 Feb, Postconcussion syndrome F07.81 ; Injury of head, initial encounter S09.90XA ; Fall, initial encounter W19.XXXA ; Disorientation R41.0 and Acute cystitis with hematuria N30.01 [place] [address] 09451- 4398 Jan, Gastroesophageal reflux disease, esophagitis presence not specified K21.9 ; Post-menopausal Z78.0 and Migraine without aura and without status migrainosus, not intractable G43.009 [place] [address] 62599- 3121 Jan, [address] [address] 26449- 9364 Jan, Generalized anxiety disorder F41.1 ; Major depressive disorder, recurrent episode, moderate F33.1 ; Vascular dementia without behavioral disturbance F01.50 and Unspecified psychosis F29 [place] [address] 39250- 1403 Jan, Pneumonia of left lower lobe due to infectious organism J18.1 [place] [address] 89117- 5867 Jan, Migraine without aura and with status migrainosus, not intractable G43.001 [facility] [place] [address] 18517 -8043 Jan, Migraine without aura and without status migrainosus, not intractable G43.009 [place] [address] 76728- 3563 Dec, Hematoma T14.8 [place] [address] 38947- 1161 Dec, [facility] [address] 89398 -3717 Nov, Fatigue, unspecified type R53.83 [place] [address] 32758- 0761 28 Aug, 2017 Scabies B86 and Coronary artery disease involving [place] coronary artery of [place] heart with other form of angina pectoris I25.118 [facility] [address] [place] [address] 14773- 6083 Nov, [facility] [id number] [place] [address] 60853- 9629 Nov, [facility] [id number] [place] [address] 23795- 1605 Oct, [facility] [id number] [place] [address] 72463- 9408 Oct, Generalized anxiety disorder F41.1 and Major depressive disorder, recurrent episode, moderate F33.1 [facility] [id number] [place] [address] 32287- 8560 Oct, Cramp of both lower extremities R25.2 [place] [id number] [place] [address] 54462- 7751 Oct, Leg cramps R25.2 [facility] [id number] [place] [address] 96353- 7789 Oct, Chronic pain syndrome G89.4 [facility] [id number] [place] [address] 17139- 0887 Oct, [facility] [id number] [place] [address] 53302- 7066 Oct, [facility] [id number] [place] [address] 27071- 3649 Oct, Routine gynecological examination Z01.419 and Screening for breast cancer Z12.31 [facility] [id number] [place] [address] 25207- 4987 Sep, Diarrhea R19.7 [facility] [id number] [place] [address] 36401- 2155 Sep, Back pain M54.9 [facility] [id number] [place] [address] 22992- 4272 Sep, [facility] [id number] [place] [address] 14641- 2952 Sep, [facility] [id number] [place] [address] 21244 -3483 August, Xeroderma Q80.9 [facility] [id number] [place] [address] 42431- 3862 August, Dementia without behavioral disturbance, unspecified dementia type F03.90 [place] [id number] [place] [address] 18315- 1880 August, Chronic pain syndrome G89.4 [place] [id number] [place] [address] 04306- 4213 August, [place] [id number] [place] [address] 96459- 8346 August, Hyperlipidemia E78.5 ; Other fatigue R53.83 and Other specified hypotension I95.89 [facility] [id number] [place] [address] 42666 -8503 August, Dysuria R30.0 ; Other fatigue R53.83 and Other specified hypotension I95.89 [place] [id number] [place] [address] 10573- 1184 August, [place] [id number] [place] [address] 52094- 0889 Jul, Pain in left knee M25.562 and Gastroenteritis K52.9 [place] [id number] [place] [address] 01590- 6436 Jul, [place] [id number] [place] [address] 77423- 2386 Jul, Di[address] R19.[address] [facility] [id number] [place] [address] 17122 -4397 Jul, Spider bite, accidental or unintentional, initial encounter T63.301A [facility] [id number] [place] [address] 28552- 5390 10 Jul, 2016 Primary osteoarthritis of right knee M17.11 and Arthritis M19.90 [place] [address] 15772- 6070 10 Jul, 2016 Generalized anxiety disorder F41.1 and Major depressive disorder, recurrent episode, moderate F33.1 [place] [address] 58418- 2223 07 Jul, 2016 Type 2 diabetes mellitus with diabetic polyneuropathy E11.42 and Temporal headache R51 [place] [address] 61586- 4913 Jul, Back pain M54.9 [place] [address] 95669- 3782 Jul, [place] [address] 00361- 1885 Jul, [place] [address] 99282- 5166 30 Jun, [address] [facility] [place] [address] 31906 -2838 23 Jun, 2016 Acute suppurative otitis media of both ears without spontaneous rupture of tympanic membranes, recurrence not specified H66.003 and COPD exacerbation J44.1 [place] [id number] [place] [address] 82343- 3291 Jun, Generalized anxiety disorder F41.1 [place] [id number] [place] [address] 51712- 4678 16 Jun, 2016 [facility] [address] 84314 -2939 Jun, [facility] [id number] [place] [address] 83518 -7766 Jun, Shortness of breath R06.02 and COPD exacerbation J44.1 [place] [id number] [place] [address] 62577- 9778 10 Jun, 2016 Eczema, unspecified type L30.9 [place] [id number] [place] [address] 12935- 2678 Jun, [place] [address] 47138- 3827 May, [place] [address] 66874- 5996 May, Muscle cramping R25.2 [place] [address] 657865- 9205 May, [place] [address] 87731- 6846 Apr, Diarrhea R19.7 [place] [address] 26607- 4182 Apr, [place] [address] 88134- 8810 Apr, Chronic pain syndrome G89.4 [place] [id number] [place] [address] 44512- 8034 Apr, Cramp of both lower extremities R25.2 and Vascular dementia without behavioral disturbance F01.50 [place] [id number] [place] [address] 99933- 1719 Apr, Type 2 diabetes mellitus with diabetic polyneuropathy E11.42 and Cigarette nicotine dependence without complication F17.210 [place] [id number] [place] [address] 00798- 1139 Mar, Generalized anxiety disorder F41.1 [place] [id number] [place] [address] 45110- 0350 Feb, Generalized anxiety disorder F41.1 and Major depressive disorder, recurrent episode, moderate F33.1 [place] [address] [place] [address]- 3075 Feb, [facility] [id number] [place] [address] 74824 -2453 Feb, Dysuria R30.0 and Acute cystitis with hematuria N30.01 [facility] [address] 84436- 1381 Jan, [facility] [address] 81957- 0620 Jan, [place] [address] 30536- 5648 Jan, [place] [address] 77074- 9475 Jan, [facility] [address] 09448 -8313 Jan, Wasp sting, accidental or unintentional, initial encounter T63.461A [place] [address] 26130- 0878 Jan, Encounter for immunization Z23 [place] [address] 60002- 6898 Jan, [place] [id number] [place] [address] 54751- 7129 Jan, [place] [address] 13896- 9577 Dec, Generalized anxiety disorder F41.1 and Major depressive disorder, recurrent episode, moderate F33.1 [place] [address] 95555- 9854 Dec, Routine gynecological examination Z01.419 ; Postmenopausal Z78.0 ; Screening breast examination Z12.39 ; Osteopenia M85.80 and Breast cancer screening Z12.39 [place] [id number] [place] [address] 08056- 8874 Dec, [facility] [address] [facility] [id number] [place] [address]- 5205 19 Dec, 2015 [facility] [address] [facility] [facility] [id number] [place] [address] 8878 16 Dec, 2015 [facility] [address] [facility] [id number] [place] [address] 0441 16 Dec, 2015 [facility] [address] [facility] [id number] [place] [address]- 5109 14 Dec, 2015 [facility] [address] [facility] [id number] [place] [address]- 1473 06 Dec, 2015 [facility] [address] [facility] [id number] [place] [address]- 5169 30 Nov, 2015 [facility] [address] [id number] [address] Nov, Cough R05 ; Other viral agents as the cause of diseases classified elsewhere B97.89 and Acute upper respiratory infection, unspecified J06.9 [facility] [address] [id number] [address]- 5774 Nov, [facility] [address] [facility] [id number] [place] [address]- 4948 Nov, [facility] [address] [id number] [address]- 7220 Nov, [facility] [address] [id number] [address]- 8636 Nov, [facility] [address] [facility] [id number] [place] [address]- 2719 Nov, [facility] [address] [facility] [id number] [place] [address]- 7909 Oct, [facility] [address] [facility] [id number] [place] [address]- 8002 Oct, [facility] [id number] [address]- 9423 14 Oct, 2015 [facility] [id number] [place] [address] 69795- 9318 13 Oct, 2015 Chronic pain syndrome G89.4 [facility] [id number] [place] [address] 51393- 2403 29 Sep, 2015 Generalized anxiety disorder F41.1 and Major depressive disorder, recurrent episode, moderate F33.1 [facility] [id number] [place] [address] 65204- 8735 23 Sep, 2015 [facility] [id number] [place] [address] 04059- 9651 Sep, [facility] [address] [address]- 9164 14 Sep, 2015 Generalized anxiety disorder F41.1 [facility] [address] [address]- 4974 13 Sep, 2015 Cramp of both lower extremities R25.2 and Cervicalgia M54.2 [facility] [id number] [place] [address] 87456- 3670 Sep, Generalized anxiety disorder F41.1 [facility] [id number] [place] [address] 19025- 9035 Sep, [facility] [id number] [place] [address] 59663 -5532 August, Rash R21 ; Itching L29.9 and Allergic response, subsequent encounter T78.40XD [facility] [id number] [place] [address] 79342- 8318 August, Primary insomnia F51.01 [facility] [id number] [place] [address] 22409 -6506 August, Rash R21 ; Itching L29.9 and Allergic response, initial encounter T78.40XA [facility] [address] 71387- 2219 August, [facility] [address]65[address], [place] [address]- 3520 August, Cramp of both lower extremities R25.2 [facility] [id number] [place] [address] 22674- 1039 August, Back pain M54.9 [facility] [id number] [place] [address] 31766- 6179 August, [facility] [id number] [place] [address] 21253- 4053 August, [facility] [id number] [place] [address] 00118 -2084 August, Cramp of both lower extremities R25.2 [facility] [id number] [place] [address] 44068- 4992 August, [facility] [id number] [place] [address] 18475- 5004 August, Syncope R55 ; Paroxysmal atrial fibrillation I48.0 ; Dementia without behavioral disturbance, unspecified dementia type F03.90 and Chronic pain syndrome G89.4 [facility] [id number] [place] [address] 59444- 0962 August, Type 2 diabetes mellitus with diabetic polyneuropathy E11.42 and Syncope R55 [facility] [address], [place] [address]- 3361 Jul, [facility] [address], [place] [address]- 5571 Jul, [facility] [id number] [place] [address] 58703- 1738 Jul, [facility] [id number] [place] [address] 37832- 6348 Jul, [facility] [address]65[address], [place] [address] 1986 Jul, [facility] [address]65[address], [place] [address]- 0458 19 Jul, 2015 UTI (urinary tract infection) N39.0 [facility] [address]65[address], [place] [address]- 9646 18 Jul, 2015 [facility] [address] [id number], [place] [address]- 1764 18 Jul, 2015 Major depressive disorder, recurrent episode, moderate F33.1 and Generalized anxiety disorder F41.1 [facility] [address] [facility] [id number], [place] [address]- 8913 14 Jul, 2015 Generalized anxiety disorder F41.1 [facility] [address]65[address] [address]- 7489 14 Jul, 2015 Diarrhea R19.7 [facility] [address]65100[facility] [address]- 6922 14 Jul, 2015 [facility] [address]00565[address], [place] [address]- 4136 Jun, [facility] [address]00565[address], [place] [address]- 1939 Jun, Eczema L30.9 [facility] [address]00565[address], [place] [address]- 7204 Jun, [facility] [address]00565[address], [place] [address]- 7088 Jun, COPD (chronic obstructive pulmonary disease) J44.9 [facility] [address] [facility] [id number], [place] [address]- 3582 16 Jun, 2015 [facility] [address] [id number], [place] [address]- 0084 02 Jun, 2015 Major depressive disorder, recurrent episode, moderate F33.1 and Generalized anxiety disorder F41.1 [facility] [address] [id number] [address]- 4156 May, [facility] [address]65[address], [place] [address]- 5470 May, UTI (urinary tract infection) N39.0 [facility] [address], [place] [address]- 0664 May, [facility] [address], [place] [address]- 2530 May, [facility] [address], [place] [address]- 1154 May, [facility] [address], [place] [address]- 6863 May, [facility] [address] [place] [address] 78466- 5980 Apr, Major depressive disorder, recurrent episode, moderate F33.1 and Generalized anxiety disorder F41.1 [facility] [address] [place] [address] 93114- 9131 Apr, COPD (chronic obstructive pulmonary disease) J44.9 [facility] [address]65[address], [place] [address]- 1448 Apr, [facility] [address], [place] [address]- 0061 Apr, Atrial flutter I48.92 [facility] [address], [place] [address]- 8413 Apr, [facility] [address], [place] [address]- 7247 Apr, [facility] [address], [place] [address]- 4892 Mar, [facility] [address], [place] [address]- 3278 Mar, [facility] [address], [place] [address]- 8919 Mar, [facility] [id number] [place] [address] 77703- 5977 17 Mar, 2015 Hyperlipidemia E78.5 ; Type 2 diabetes mellitus with diabetic polyneuropathy E11.42 ; Major depressive disorder, recurrent episode, moderate F33.1 and Chronic pain syndrome G89.4 [facility] [id number] [place] [address] 60142- 1071 16 Mar, 2015 [facility] [address] 72741- 8485 14 Mar, 2015 [facility] [id number] [place] [address] 54984- 2627 Mar, [facility] [id number] [place] [address] 74820- 5686 Mar, [facility] [id number] [place] [address] 13087- 2813 Feb, COPD (chronic obstructive pulmonary disease) J44.9 and Back pain M54.9 [facility] [id number] [place] [address] 90442- 6784 Feb, [facility] [id number] [place] [address] 00315- 5252 Feb, [facility] [id number] [place] [address] 36854- 5756 Feb, [facility] [id number] [place] [address] 42746- 4569 Feb, [facility] [id number] [place] [address] 43385- 7347 Feb, [facility] [id number] [place] [address] 43979- 6026 Feb, [facility] [id number] [place] [address] 00304- 1157 Feb, [facility] [id number] [place] [address] 62908- 8889 Feb, [facility] [address], [place] [address]- 3385 Feb, Diabetes E11.9 ; Back pain M54.9 and COPD (chronic obstructive pulmonary disease) J44.9 [facility] [address], [place] [address]- 1108 Jan, [facility] [address] [place] [address] 12938- 8330 Jan, Major depression, recurrent F33.9 and Generalized anxiety disorder F41.1 [facility] [id number] [place] [address] 08887- 2690 Jan, Chronic pain G89.29 [facility] [id number] [place] [address] 42884- 1338 Jan, [facility] [id number] [place] [address] 35489- 2274 Jan, [facility] [id number] [place] [address] 95452- 5366 Jan, [facility] [id number] [place] [address] 03162- 1415 Jan, [facility] [id number] [place] [address] 37008- 1752 Jan, Nicotine dependence F17.200 [facility] [address] [place] [address] 73420- 8301 Jan, Nicotine dependence F17.200 and Back pain M54.9 [facility] [address] [place] [address] 29363- 2878 Jan, [facility] [id number] [place] [address] 32862- 8853 Dec, [facility] [address] [place] [address] 75329- 6296 Dec, Anxiety, generalized 300.02 and Major depression, recurrent 296.30 [facility] [address] [id number], [place] [address]- 6709 24 Dec, 2014 [facility] [address], [place] [address] 2542 21 Dec, 2014 [facility] [address], [place] [address] 2546 17 Dec, 2014 [facility] [address] [place] [address] 08270- 2311 15 Dec, 2014 [facility] [address], [place] [address]- 2548 14 Dec, 2014 [facility] [address] [place] [address] 86131- 4801 11 Dec, 2014 [facility] [address], [place] [address]- 4552 10 Dec, 2014 [facility] [address] [place] [address] 74998- 1229 08 Dec, 2014 Skin tear 879.8 [facility] [address], [place] [address]- 0154 08 Dec, 2014 Routine gynecological examination V72.31 ; Breast cancer screening V76.10 and Family history of breast cancer in first degree relative V16.3 [facility] [address], [place] [address]- 8020 03 Dec, 2014 [facility] [address], [place] [address]- 5900 Dec, [facility] [address], [place] [address]- 2541 Nov, [facility] [address], [place] [address]- 2510 Nov, [facility] [address], [place] [address]- 7016 Nov, Poor balance 781.99 and Vascular dementia, uncomplicated 290.40 [facility] [id number], [place] [address]- 5618 Nov, [facility] [address] [place] [address] 02871- 7119 Nov, Major depression, recurrent 296.30 and Anxiety, generalized 300.02 [facility] [id number], [place] [address]- 7334 Nov, [facility] [id number] [place] [address] 77547- 6869 Nov, [facility] [id number] [place] [address] 04371- 9238 Nov, [facility] [id number] [place] [address] 39090- 1073 Nov, [facility] [id number] [place] [address] 41629- 6821 Nov, Vascular dementia, uncomplicated 290.40 and Lumbago 724.2 [facility] [address], [place] [address]- 1017 Nov, [facility] [id number] [place] [address] 20127- 8019 Nov, [facility] [id number], [place] [address]- 2530 Nov, [facility] [address], [place] [address]- 9566 Oct, [facility] [address], [place] [address]- 0482 Oct, [facility] [id number] [place] [address] 65111- 8952 Oct, [facility] [id number], [place] [address]- 4092 Oct, COPD (chronic obstructive pulmonary disease) 496 and Hyperlipidemia 272.4 [facility] [id number] [place] [address] 55053- 7755 Oct, Major depression, recurrent 296.30 and Anxiety, generalized 300.02 [facility] [address] [place] [address] 60350- 0003 Oct, [facility] [id number] [place] [address] 09517- 7815 Oct, [facility] [id number] [place] [address] 95182- 1355 Oct, [facility] [id number] [place] [address] 90500- 2427 Sep, Lumbago 724.2 and Anxiety state, unspecified 300.00 [facility] [id number] [place] [address] 83721- 0538 Sep, [facility] [id number] [place] [address] 19564- 7803 Sep, [facility] [id number] [place] [address] 02829- 3360 August, [facility] [id number] [place] [address] 48968- 7014 August, Major depression, recurrent 296.30 ; Anxiety, generalized 300.02 and No condition on Ursa II V71.09 [facility] [address], [place] [address]- 7436 August, [facility] [id number] [place] [address] 75503- 0182 August, [facility] [address], [place] [address]- 3163 Jul, [facility] [id number] [place] [address] 87147- 5171 Jul, [facility] [address], [place] [address]- 0745 Jul, [facility] [id number] [place] [address] 55825- 1827 30 Jun, 2014 [facility] [place] [facility] [address] [id number] [place] [address]- 1993 30 Jun, 2014 [facility] [place] [facility] [address] [id number] [place] [address]- 8186 Jun, [facility] [place] [facility] [address] [id number] [place] [address]- 5548 Jun, [facility] [place] [facility] [address] [id number] [place] [address]- 9800 Jun, [facility] [place] [facility] [address] [id number] [place] [address]- 5691 Jun, [facility] [place] [facility] [address] [id number] [place] [address]- 2419 Jun, [facility] [place] [facility] [address] [id number] [place] [address]- 3052 Jun, [facility] [place] [facility] [address] [id number] [place] [address]- 4970 Jun, [facility] [place] [facility] [address] [id number] [place] [address]- 3458 Jun, [facility] [place] [facility] [address] [id number] [place] [address]- 1595 10 Jun, 2014 [facility] [place] [facility] [address] [id number] [place] [address]- 8161 Jun, [facility] [place] [facility] [address] [id number] [place] [address]- 7939 Jun, [facility] [place] [facility] [address] [id number] [place] [address]- 0557 Jun, [facility] [place] [facility] [address] [id number] [place] [address]- 2515 Jun, [facility] [place] [facility] [address] [id number] [place] [address]- 1934 Jun, 2014 [facility] [place] [facility] [address] [id number] [place] [address]- 9906 May, 2014 [facility] [place] [facility] [address] [id number] [place] [address]- 8296 May, 2014 [facility] [place] [facility] [address] [id number] [place] [address] 2546 May, 2014 [facility] [place] [facility] [address] [id number] [place] [address] 2546 May, 2014 [facility] [place] [facility] [address] [id number] [place] [address] 2547 May, 2014 [facility] [place] [facility] [address] [id number] [place] [address]- 4596 May, 2014 [facility] [place] [facility] [address] [facility] [id number] [place] [address]- 7824 May, 2014 [facility] [place] [facility] [address] [facility] [id number] [place] [address]- 2369 May, 2014 [facility] [place] [facility] [address] [facility] [id number] [place] [address]- 8884 May, 2014 [facility] [place] [facility] [address] [facility] [id number] [place] [address]- 2044 May, 2014 [facility] [place] [facility] [address] [facility] [id number] [place] [address]- 8256 May, 2014 [facility] [place] [facility] [address] [facility] [id number], [place] [address]- 254 May, 2014 [facility] [place] [facility] [address] [facility] [id number] [place] [address]- 2546 May, 2014 [facility] [place] [facility] [address] [id number] [place] [address]- 2544 May, 2014 [facility] [place] [facility] [address] [facility] [id number] [place] [address]- 9990 Apr, [facility] [place] [facility] [address] [facility] [id number] [place] [address]- 2695 Apr, [facility] [place] [facility] [address] [id number] [place] [address]- 6413 Apr, [facility] [place] [facility] [address] [id number] [place] [address]- 7289 Apr, [facility] [place] [facility] [address] [id number] [place] [address]- 2109 Apr, [facility] [place] [facility] [address] [id number] [place] [address]- 5242 Apr, [facility] [place] [facility] [address] [id number] [place] [address]- 2378 Apr, [facility] [place] [facility] [address] [id number] [place] [address]- 4003 Apr, [facility] [place] [facility] [address] [id number] [place] [address]- 0417 Apr, [facility] [place] [facility] [address] [id number] [place] [address]- 8941 Apr, [facility] [place] [facility] [address] [id number] [place] [address]- 5894 Apr, [facility] [place] [facility] [address] [id number] [place] [address] Apr, [facility] [place] [facility] [address] [id number] [place] [address] Mar, [facility] [place] [facility] [address] [id number] [place] [address] Mar, [facility] [place] [facility] [address] [id number] [place] [address] Mar, [facility] [place] [facility] [address] [id number] [place] [address] Mar, [facility] [place] [facility] [address] [id number] [place] [address] Mar, [facility] [place] [facility] [address] [id number] [place] [address] 29 Mar, 2014 [facility] [place] [facility] [address] [id number] [place] [address] Mar, [facility] [place] [facility] [address] [id number] [place] [address] Mar, [facility] [place] [facility] [address] [id number] [place] [address] 15 Mar, 2014 [facility] [place] [facility] [address] [id number] [place] [address] 15 Mar, 2014 [facility] [place] [facility] [address] [id number] [place] [address] Mar, [facility] [place] [facility] [address] [id number] [place] [address] Mar, [facility] [place] [facility] [address] [id number] [place] [address] Mar, [facility] [place] [facility] [address] [id number] [place] [address] Mar, [facility] [place] [facility] [address] [id number] [place] [address] Mar, [facility] [place] [facility] [address] [id number] [place] [address] Mar, [facility] [place] [facility] [address] [id number] [place] [address] Mar, [facility] [place] [facility] [address] [id number] [place] [address] Mar, [facility] [place] [facility] [address] [id number] [place] [address] Mar, [facility] [place] [facility] [address] [id number] [place] [address] Mar, [facility] [place] [facility] [address] [id number], [place] [address] Feb, [facility] [place] [facility] [address] [id number] [place] [address] Feb, [facility] [place] [facility] [address] [id number] [place] [address] Feb, [facility] [place] [facility] [address] [id number] [place] [address] Feb, [facility] [place] [facility] [address] [id number] [place] [address] Feb, [facility] [place] [facility] [address] [id number] [place] [address] Feb, [facility] [place] [facility] [address] [id number] [place] [address] Feb, [facility] [place] [facility] [address] [id number] [place] [address] Feb, [facility] [place] [facility] [address] [id number] [place] [address] Feb, [facility] [place] [facility] [address] [id number] [place] [address] Feb, [facility] [place] [facility] [address] [id number] [place] [address] Feb, [facility] [place] [facility] [address] [id number], [place] [address] Feb, [facility] [place] [facility] [address] [id number], [place] [address] Feb, [facility] [place] [facility] [address] [id number] [place] [address] Feb, [facility] [place] [facility] [address] [id number], [place] [address] Feb, [facility] [place] [facility] [address] [id number], [place] [address] Feb, [facility] [place] [facility] [address] [id number] [place] [address] Feb, [facility] [place] [facility] [address] [id number] [place] [address] Jan, [facility] [place] [facility] [address] [id number] [place] [address] Jan, [facility] [place] [facility] [address] [id number] [place] [address] Jan, [facility] [place] [facility] [address] [id number] [place] [address] Jan, [facility] [place] [facility] [address] [id number] [place] [address] Jan, [facility] [place] [facility] [address] [id number] [place] [address]- [address] Jan, [facility] [place] [facility] [address] [id number] [place] [address] Jan, [facility] [place] [facility] [address] [id number] [place] [address]- [address] Jan, [facility] [place] [facility] [address] [address] [id number] [place] [address] Jan, [facility] [place] [facility] [address] [id number] [place] [address] 14[address] Jan, [facility] [place] [facility] [address] [id number] [place] [address] 2073 Jan, [facility] [place] [facility] [address] [id number] [place] [address] 1857 Dec, [facility] [place] [facility] [address] [id number] [place] [address] 9716 Dec, [facility] [place] [facility] [address] [id number] [place] [address] 7790 Nov, [facility] [place] [facility] [address] [id number] [place] [address] Nov, [facility] [place] [facility] [address] [id number] [place] [address] 9670 Nov, [facility] [place] [facility] [address] [id number] [place] [address] 8846 Nov, [facility] [place] [facility] [address] [id number] [place] [address] 8378 Nov, [facility] [place] [facility] [address] [id number] [place] [address]- 2952 Nov, [facility] [place] [facility] [address] [id number] [place] [address] 3624 Nov, [facility] [place] [facility] [address] [id number] [place] [address] 9398 Oct, [facility] [place] [facility] [address] [id number] [place] [address]- 2899 Oct, [facility] [place] [facility] [address] [id number] [place] [address]- 1508 Oct, [facility] [place] [facility] [address] [id number] [place] [address] 9818 Oct, [facility] [place] [facility] [address] [id number] [place] [address]- 3186 Sep, [facility] [place] [facility] [address] [id number] [place] [address]- 0125 Sep, [facility] [place] [facility] [address] [id number] [place] [address]- 2660 Sep, [facility] [place] [facility] [address] [id number] [place] [address]- 6861 Sep, [facility] [place] [facility] [address] [id number] [place] [address]- 2054 Sep, [facility] [place] [facility] [address] [id number] [place] [address]- 9675 Sep, [facility] [place] [facility] [address] [id number] [place] [address]- 1718 Sep, [facility] [place] [facility] [address] [id number] [place] [address]- 3218 Sep, [facility] [place] [facility] [address] [id number] [place] [address]- 5497 Sep, [facility] [place] [facility] [address] [id number] [place] [address]- 1126 Sep, [facility] [place] [facility] [address] [id number] [place] [address]- 8759 Sep, [facility] [place] [facility] [address] [id number] [place] [address]- 7176 Sep, [facility] [place] [facility] [address] [id number] [place] [address]- 2271 Sep, [facility] [place] [facility] [address] [id number] [place] [address]- 4955 Sep, [facility] [place] [facility] [address] [id number] [place] [address] August, [facility] [place] [facility] [address] [id number] [place] [address]- 7246 August, [facility] [place] [facility] [address] [id number] [place] [address]- 2124 August, [facility] [place] [facility] [address] [id number] [place] [address]- 8768 August, [facility] [place] [facility] [address] [id number] [place] [address]- 1488 August, [facility] [place] [facility] [address] [id number] [place] [address]- 2558 August, [facility] [place] [facility] [address] [id number] [place] [address] 4184 August, [facility] [place] [facility] [address] [id number] [place] [address] 3972 August, [facility] [place] [facility] [address] [id number] [place] [address]- 4956 August, [facility] [place] [facility] [address] [id number] [place] [address]- 0978 August, [facility] [place] [facility] [address] [id number] [place] [address] 8136 August, [facility] [place] [facility] [address] [id number] [place] [address]- 4936 August, [facility] [place] [facility] [address] [id number] [place] [address]- 2313 August, [facility] [place] [facility] [address] [id number] [place] [address]- [address] August, [facility] [place] [facility] [address] [id number] [place] [address] 7766 August, [facility] [place] [facility] [address] [id number] [place] [address] 2044 August, [facility] [place] [facility] [address] [id number] [place] [address] 7925 August, [facility] [place] [facility] [address] [id number] [place] [address] 0787 August, [facility] [place] [facility] [address] [id number] [place] [address]- 5[address] August, [facility] [place] [facility] [address] [id number] [place] [address]- 1391 Jul, [facility] [place] [facility] [address] [id number] [place] [address]- 2844 Jul, [facility] [place] [facility] [address] [id number] [place] [address]- 5513 Jul, [facility] [place] [facility] [address] [id number] [place] [address]- 5076 Jul, [facility] [place] [facility] [address] [id number] [place] [address]- 0329 Jun, [facility] [place] [facility] [address] [id number] [place] [address]- 0198 27 Jun, 2013 [facility] [place] [facility] [address] [id number] [place] [address]- 0990 24 Jun, 2013 [facility] [place] [facility] [address] [id number] [place] [address]- 7636 24 Jun, 2013 [facility] [place] [facility] [address] [id number] [place] [address]- 5683 Jun, [facility] [place] [facility] [address] [id number] [place] [address]- 6511 17 Jun, 2013 [facility] [place] [facility] [address] [id number] [place] [address]- 9000 Jun, [facility] [place] [facility] [address] [id number] [place] [address]- 4437 Jun, [facility] [place] [facility] [address] [id number] [place] [address]- 5220 Jun, [facility] [place] [facility] [address] [id number] [place] [address]- 6552 Jun, [facility] [place] [facility] [address] [id number] [place] [address]- 6325 May, [facility] [place] [facility] [address] [id number] [place] [address]- 6586 May, [facility] [place] [facility] [address] [id number] [place] [address]- 4027 May, [facility] [place] [facility] [address] [id number] [place] [address]- 3891 May, [facility] [place] [facility] [address] [id number] [place] [address]- 7698 May, [facility] [place] [facility] [address] [id number] [place] [address]- 1260 May, [facility] [place] [facility] [address] [id number] [place] [address]- 6250 20 May, 2013 [facility] [place] [facility] [address] [id number] [place] [address]- 7296 May, [facility] [place] [facility] [address] [id number] [place] [address]- 2436 May, [facility] [place] [facility] [address] [id number] [place] [address]- 6186 May, [facility] [place] [facility] [address] [id number] [place] [address]- 7007 18 May, 2013 [facility] [place] [facility] [address] [id number] [place] [address]- 4736 May, [facility] [place] [facility] [address] [facility] [id number] [place] [address]- 4340 May, [facility] [place] [facility] [address] [facility] [id number] [place] [address]- 8154 May, [facility] [place] [facility] [address] [id number] [place] [address]- 8625 May, [facility] [place] [facility] [address] [facility] [id number] [place] [address]- 3341 May, [facility] [place] [facility] [address] [facility] [id number] [place] [address]- 5393 May, [facility] [place] [facility] [address] [id number], [place] [address]- 5041 Apr, [facility] [place] [facility] [address] [id number] [place] [address]- 6400 Apr, [facility] [place] [facility] [address] [id number] [place] [address]- 2266 Apr, [facility] [place] [facility] [address] [facility] [id number], [place] [address]- 8159 Apr, [facility] [place] [facility] [address] [id number], [place] [address]- 5541 Apr, [facility] [address] [id number] [place] [address]- 7682 Apr, [facility] [address] [id number] [place] [address]- 9788 Apr, [facility] [address] [facility] [id number] [place] [address]- 2153 Mar, [facility] [address] [id number] [place] [address]- 7759 Mar, [facility] [address] [id number] [place] [address]- 0185 Mar, [facility] [address] [id number] [place] [address]- 6481 Mar, [facility] [address] [facility] [id number] [place] [address]- 2004 Mar, [facility] [address] [id number] [place] [address]- 2397 Mar, [facility] [address] [id number] [place] [address]- 0931 Mar, [facility] [address] [facility] [id number] [place] [address]- 7894 Mar, [facility] [address] [id number] [place] [address]- 2816 Mar, [facility] [place] [facility] [address] [id number], [place] [address]- 6515 Mar, [facility] [place] [facility] [address] [id number] [place] [address]- 5540 Mar, [facility] [place] [facility] [address] [facility] [id number] [place] [address]- 6426 Feb, [facility] [place] [facility] [address] [facility] [id number] [place] [address]- 5419 Feb, [facility] [place] [facility] [address] [id number] [place] [address]- 5287 20 Feb, 2013 [facility] [place] [facility] [address] [id number] [place] [address]- 9768 20 Feb, 2013 [facility] [place] [facility] [address] [id number] [place] [address]- 1901 19 Feb, 2013 [facility] [place] [facility] [address] [id number] [place] [address]- 7766 19 Feb, 2013 [facility] [place] [facility] [address] [id number] [place] [address]- 5332 15 Feb, 2013 [facility] [place] [facility] [address] [id number] [place] [address]- 9422 14 Feb, 2013 [facility] [place] [facility] [address] [id number] [place] [address]- 8607 14 Feb, 2013 [facility] [place] [facility] [address] [id number] [place] [address]- 8737 13 Feb, 2013 [facility] [place] [facility] [address] [id number] [place] [address]- 5165 13 Feb, 2013 [facility] [place] [facility] [address] [id number] [place] [address]- 2653 Feb, [facility] [place] [facility] [address] [id number] [place] [address]- 7504 12 Feb, 2013 [facility] [place] [facility] [address] [id number] [place] [address]- 9990 11 Feb, 2013 [facility] [place] [facility] [address] [id number] [place] [address]- 7429 05 Feb, 2013 [facility] [place] [facility] [address] [id number] [place] [address]- 3250 05 Feb, 2013 [facility] [place] [facility] [address] [id number] [place] [address]- 9984 28 Jan, 2013 [facility] [place] [facility] [address] [id number] [place] [address]- 6766 Jan, [facility] [place] [facility] [address] [id number] [place] [address]- 2604 Jan, [facility] [place] [facility] [address] [id number] [place] [address]- 0267 Jan, [facility] [place] [facility] [address] [id number] [place] [address]- 7150 Jan, [facility] [place] [facility] [address] [id number] [place] [address]- 3367 Jan, [facility] [place] [facility] [address] [id number] [place] [address]- 9699 Jan, [facility] [place] [facility] [address] [id number] [place] [address]- 6962 Jan, [facility] [place] [facility] [address] [id number] [place] [address]- 9544 Jan, [facility] [place] [facility] [address] [id number] [place] [address]- 7407 27 Dec, 2012 [facility] [place] [facility] [address] [id number] [place] [address]- 0183 20 Dec, 2012 [facility] [place] [facility] [address] [id number] [place] [address]- 7154 19 Dec, 2012 [facility] [place] [facility] [address] [id number], [place] [address]- 9272 10 Dec, 2012 [facility] [place] [facility] [address] [id number], [place] [address]- 8369 04 Dec, 2012 [facility] [place] [facility] [address] [id number] [place] [address]- 4253 Dec, [facility] [place] [facility] [address] [id number], [place] [address]- 3069 Nov, [facility] [place] [facility] [address] [id number] [place] [address]- 3742 Nov, [facility] [place] [facility] [address] [id number] [place] [address]- 1501 Nov, [facility] [place] [facility] [address] [id number] [place] [address]- 3468 Nov, [facility] [place] [facility] [address] [id number] [place] [address]- 1341 Nov, [facility] [place] [facility] [address] [id number] [place] [address]- 8258 Nov, [facility] [place] [facility] [address] [id number] [place] [address]- 4924 Nov, [facility] [place] [facility] [address] [id number] [place] [address]- 0753 Nov, [facility] [place] [facility] [address] [id number] [place] [address]- 3114 Nov, [facility] [place] [facility] [address] [id number] [place] [address]- 4895 Nov, [facility] [place] [facility] [address] [id number] [place] [address]- 8129 Oct, [facility] [place] [facility] [address] [id number] [place] [address]- 3015 Oct, [facility] [place] [facility] [address] [id number] [place] [address]- 4761 Oct, [facility] [place] [facility] [address] [id number] [place] [address]- 5905 Oct, [facility] [place] [facility] [address] [id number] [place] [address]- 9638 Oct, [facility] [place] [facility] [address] [id number] [place] [address]- 6631 Oct, [facility] [place] [facility] [address] [id number] [place] [address]- 3541 Oct, [facility] [place] [facility] [address] [id number] [place] [address]- 9451 Oct, [facility] [place] [facility] [address] [id number] [place] [address]- 2496 Sep, [facility] [address] [id number] [place] [address]- 1340 Sep, [facility] [address] [id number] [place] [address]- 5985 Sep, [facility] [address] [id number] [place] [address]- 1001 Sep, [facility] [address] [id number] [place] [address]- 8554 Sep, [facility] [address] [id number] [place] [address]- 3313 Sep, [facility] [address] [id number] [place] [address]- 5029 Sep, [facility] [address] [id number] [place] [address]- 0768 Sep, [facility] [address] [id number] [place] [address]- 1423 August, [facility] [address] [id number] [place] [address]- 9751 August, [facility] [address] [id number] [place] [address]- 2013 August, [facility] [address] [id number] [place] [address]- 4093 August, [facility] [address] [id number] [place] [address]- 7019 August, [facility] [place] [facility] [address] [id number] [place] [address]- 3587 Jul, [facility] [place] [facility] [address] [id number] [place] [address]- 5574 Jul, [facility] [place] [facility] [address] [id number] [place] [address]- 2546 Jul, [facility] [address] [id number] [place] [address]- 3046 Jul, [facility] [place] [facility] [address] [id number] [place] [address]- 5401 Jul, [facility] [place] [facility] [address] [id number] [place] [address]- 7539 Jun, [facility] [place] [facility] [address] [id number] [place] [address]- 7894 Jun, [facility] [place] [facility] [address] [id number] [place] [address]- 1119 15 Jun, 2012 [facility] [place] [facility] [address] [id number] [place] [address]- 6255 14 Jun, 2012 [facility] [place] [facility] [address] [facility] [id number] [place] [address]- 6982 Jun, [facility] [place] [facility] [address] [id number] [place] [address]- 7170 Jun, [facility] [place] [facility] [address] [id number] [place] [address]- 5844 Jun, [facility] [place] [facility] [address] [facility] [id number] [place] [address]- 7345 Jun, [facility] [place] [facility] [address] [id number] [place] [address]- 8154 Jun, [facility] [place] [facility] [address] [id number] [place] [address]- 7826 May, [facility] [place] [facility] [address] [id number] [place] [address]- 5935 May, [facility] [place] [facility] [address] [id number] [place] 6977 May, [facility] [place] [facility] [address] [facility] [id number] [place] [address]- 9280 May, [facility] [place] [facility] [address] [id number] [place] [address]- 9538 15 Apr, 2012 [facility] [address] [id number] [place] [address]- 9751 Apr, [facility] [address] [id number] [place] [address]- 2716 Apr, [facility] [address] [id number] [place] [address]- 0191 Apr, [facility] [address] [id number] [place] [address]- 7564 Apr, [facility] [address] [id number] [place] [address]- 6699 Apr, [facility] [address] [id number] [place] [address]- 5173 Apr, [facility] [address] [id number] [place] [address]- 2083 Mar, [facility] [place] [facility] [address] [place] [id number] Mar, [facility] [address] [id number] [place] [address] Mar, [facility] [address] [id number] [place] [address] Mar, [facility] [address] [id number] [place] [address] Mar, [facility] [address] [id number] [place] [address] Mar, [facility] [address] [id number] [place] [address] Mar, [facility] [address] [id number] [place] [address] Mar, [facility] [address] [id number] [place] [address] Mar, [facility] [place] [facility] [address] [id number] [place] [address] Mar, [facility] [place] [facility] [address] [id number] [place] [address] Mar, [facility] [place] [facility] [address] [id number] [place] [address] Mar, [facility] [place] [facility] [address] [id number] [place] [address] Mar, [facility] [place] [facility] [address] [id number] [place] [address] Mar, [facility] [place] [facility] [address] [id number] [place] [address] Mar, [facility] [place] [facility] [address] [id number] [place] [address] Mar, [facility] [place] [facility] [address] [id number] [place] [address] Mar, [facility] [place] [facility] [address] [id number] [place] [address] Feb, [facility] [place] [facility] [address] [id number] [place] [address] Feb, [facility] [place] [facility] [address] [id number] [place] [address] Feb, [facility] [place] [facility] [address] [id number] [place] [address] Feb, [facility] [place] [facility] [address] [id number] [place] [address] Feb, [facility] [place] [facility] [address] [id number] [place] [address] Feb, [facility] [place] [facility] [address] [id number] [place] [address] Feb, [facility] [place] [facility] [address] [id number], [place] [address] Feb, [facility] [place] [facility] [address] [id number] [place] [address] Feb, [facility] [place] [facility] [address] [id number], [place] [address] Feb, [facility] [place] [facility] [address] [id number] [place] [address] Feb, [facility] [place] [facility] [address] [id number], [place] [address] Feb, [facility] [place] [facility] [address] [id number] [place] [address] Feb, [facility] [place] [facility] [address] [id number] [place] [address] Feb, [facility] [place] [facility] [address] [id number] [place] [address] Feb, [facility] [place] [facility] [address] [id number] [place] [address] Feb, [facility] [place] [facility] [address] [id number], [place] [address] Jan, [facility] [place] [facility] [address] [id number] [place] [address] Jan, [facility] [place] [facility] [address] [id number], [place] [address] Jan, [facility] [place] [facility] [address] [id number], [place] [address] Jan, [facility] [place] [facility] [address] [id number], [place] [address] Jan, [facility] [place] [facility] [address] [id number], [place] [address] Jan, [facility] [place] [facility] [address] [id number] [place] [address] Jan, [facility] [place] [facility] [address] [id number] [place] [address] 24 Jan, 2012 [facility] [place] [facility] [address] [id number] [place] [address] 17 Jan, 2012 [facility] [place] [facility] [address] [id number] [place] [address]56 17 Jan, 2012 [facility] [place] [facility] [address] [id number] [place] [address] Jan, [facility] [place] [facility] [address] [id number] [place] [address] Jan, [facility] [place] [facility] [address] [id number] [place] [address] Jan, [facility] [place] [facility] [address] [id number] [place] [address] 120[address] Jan, [facility] [place] [facility] [address] [id number] [place] [address]- [address] 08 Jan, 2012 [facility] [place] [facility] [address] [id number] [place] [address] 05 Jan, 2012 [facility] [place] [facility] [address] [id number] [place] [address]- [address]30 04 Jan, 2012 [facility] [place] [facility] [address] [id number] [place] [address]- [address] 21 Dec, 2011 [facility] [place] [facility] [address] [id number] [place] [address]- [address] 20 Sep, 2011 [facility] [place] [facility] [address] [id number] [place] [address] 18 Sep, 2011 [facility] [place] [facility] [address] [id number] [place] [address]- [address]178 18 Sep, 2011 [facility] [place] [facility] [address] [id number] [place] [address]- [address]306 10 Dec, 2011 [facility] [place] [facility] [address] [id number] [place] [address] 1598 Dec, [facility] [place] [facility] [address] [id number] [place] [address]- [address]70 10 Dec, 2011 [facility] [place] [facility] [address] [id number] [place] [address]- [address] Dec, [facility] [place] [facility] [address] [id number] [place] [address]- [address] Nov, [facility] [place] [facility] [address] [id number] [place] [address]- 2406 Nov, [facility] [place] [facility] [address] [id number] [place] [address]- [address] Nov, [facility] [place] [facility] [address] [id number] [place] [address]- 4220 Nov, [facility] [place] [facility] [address] [id number] [place] [address]- 0611 Nov, [facility] [place] [facility] [address] [id number] [place] [address]- 9[address] Nov, [facility] [place] [facility] [address] [id number] [place] [address]- [address] Oct, [facility] [place] [facility] [address] [id number] [place] [address]- [address]108 Oct, [facility] [place] [facility] [address] [id number] [place] [address]- [address]058 Oct, [facility] [place] [facility] [address] [id number] [place] [address]- 6028 Oct, [facility] [place] [facility] [address] [id number] [place] [address]- 9418 Oct, [facility] [place] [facility] [address] [id number] [place] [address]- 6933 Oct, [facility] [place] [facility] [address] [id number] [place] [address]- 6[address] Oct, [facility] [place] [facility] [address] [id number] [place] [address]- [address] 26 Sep, 2011 [facility] [place] [facility] [address] [id number] [place] [address]- 6[address] 25 Sep, 2011 [facility] [place] [facility] [address] [id number] [place] [address]- [address]108 Sep, [facility] [place] [facility] [address] [id number] [place] [address]- 7923 20 Sep, 2011 [facility] [place] [facility] [address] [id number] [place] [address]- [address] 19 Sep, 2011 [facility] [place] [facility] [address] [id number] [place] [address]- [address]274 15 Sep, 2011 [facility] [place] [facility] [address] [id number] [place] [address] 14 Sep, 2011 [facility] [place] [facility] [address] [id number] [place] [address] Sep, [facility] [place] [facility] [address] [id number] [place] [address] 05 Sep, 2011 [facility] [place] [facility] [address] [id number] [place] [address] 04 Sep, 2011 [facility] [place] [facility] [address] [id number] [place] [address] August, [facility] [place] [facility] [address] [id number] [place] [address] August, [facility] [place] [facility] [address] [id number] [place] [address] August, [facility] [place] [facility] [address] [id number] [place] [address] August, [facility] [place] [facility] [address] [id number] [place] [address] August, [facility] [place] [facility] [address] [id number] [place] [address] Jul, [facility] [place] [facility] [address] [id number] [place] [address] Jul, [facility] [place] [facility] [address] [id number] [place] [address] Jul, [facility] [place] [facility] [address] [id number] [place] [address] 17 Jul, 2011 [facility] [place] [facility] [address] [id number] [place] [address] Jul, [facility] [place] [facility] [address] [id number] [place] [address] Jul, [facility] [place] [facility] [address] [id number] [place] [address] Jul, [facility] [place] [facility] [address] [id number] [place] [address] Jun, [facility] [place] [facility] [address] [id number] [place] [address] Jun, [facility] [place] [facility] [address] [id number] [place] [address] Jun, [facility] [place] [facility] [address] [id number] [place] [address] Jun, [facility] [place] [facility] [address] [id number] [place] [address] Jun, [facility] [place] [facility] [address] [id number] [place] [address] May, [facility] [place] [facility] [address] [id number] [place] [address] May, [facility] [place] [facility] [address] [id number] [place] [address] May, [facility] [place] [facility] [address] [id number] [place] [address] May, [facility] [place] [facility] [address] [id number], [place] [address] May, [facility] [place] [facility] [address] [id number] [place] [address] May, [facility] [place] [facility] [address] [id number] [place] [address] Apr, [facility] [place] [facility] [address] [facility] [id number] [place] [address] Mar, [facility] [place] [facility] [address] [id number] [place] [address] Feb, [facility] [place] [facility] [address] [id number] [place] [address] Feb, [facility] [place] [facility] [address] [facility] [id number] [place] [address] Feb, [facility] [place] [facility] [address] [facility] [id number] [place] [address] Feb, [facility] [place] [facility] [address] [facility] [id number] [place] [address] Jan, [facility] [place] [facility] [address] [facility] [id number] [place] [address] Jan, [facility] [place] [facility] [address] [facility] [id number] [place] [address] Jan, [facility] [place] [facility] [address] [facility] [id number], [place] [address] Jan, [facility] [place] [facility] [address] [id number], [place] [address] Jan, [facility] [place] [facility] [address] [id number], [place] [address] Dec, [facility] [place] [facility] [address] [facility] [id number] [place] [address] Oct, [facility] [place] [facility] [address] [facility] [id number] [place] [address] August, [facility] [place] [facility] [address] [id number] [place] [address] 29 Mar, 2010 [facility] [place] [facility] [address] [id number] [place] [address] 27 Mar, 2010 [facility] [place] [facility] [address] [id number] [place] [address]46 16 Mar, 2010 [facility] [place] [facility] [address] [id number] [place] [address] 2546 15 Mar, 2010 [facility] [place] [facility] [address] [id number] [place] [address] 2549 15 Mar, 2010 [facility] [place] [facility] [address] [id number] [place] [address] 08 Mar, 2010 [facility] [place] [facility] [address] [id number] [place] [address] 03 Mar, 2010 [facility] [place] [facility] [address] [id number] [place] [address] 24 Feb, 2010 [facility] [place] [facility] [address] [id number] [place] [address] 24 Feb, 2010 [facility] [place] [facility] [address] [id number] [place] [address] Feb, [facility] [place] [facility] [address] [facility] [id number] [place] [address] 19 Jan, 2010 [facility] [place] [facility] [address] [id number] [place] [address] 1429 18 Jan, 2010 [facility] [place] [facility] [address] [id number] [place] [address] 2660 18 Jan, 2010 [facility] [place] [facility] [address] [id number] [place] [address] Nov, [facility] [place] [facility] [address] [id number] [place] [address] 2546 14 Sep, 2009 [facility] [place] [facility] [address] [id number] [place] [address] August, [facility] [place] [facility] [address] [id number] [place] [address] 1679 30 Mar, 2009 [facility] [place] [facility] [address] [id number] [place] [address] 49[address] 07 Mar, 2009 [facility] [place] [facility] [address] [id number] [place] [address] 3928 17 Feb, 2009 [facility] [place] [facility] [address] [id number], [place] [address] 10 Feb, 2009 [facility] [place] [facility] [address] [id number] [place] [address] 8113 10 Feb, 2009 [facility] [place] [facility] [address] [id number], [place] [address] 10 Feb, 2009 [facility] [place] [facility] [address] [facility] [id number] [place] [address]69 Feb, [facility] [place] [facility] [address] [id number], [place] [address] 27 Jan, 2009 [facility] [place] [facility] [address] [id number], [place] [address] 26 Jan, 2009 [facility] [place] [facility] [address] [id number], [place] [address] 20 Jan, 2009 [facility] [place] [facility] [address] [id number], [place] [address] Jan, [facility] [place] [facility] [address] [id number], [place] [address] Nov, [facility] [place] [facility] [address] [id number], [place] [address] 16 Sep, 2008 [facility] [place] [facility] [address] [id number], [place] [address] August, [facility] [place] [facility] [address] [id number], [place] [address] 14 Jul, 2008 [facility] [place] [facility] [address] [facility] [id number] [place] [address] May, IMMUNIZATIONS No Known Immunizations SOCIAL HISTORY [...]
--- NOTE | 2018-01-01 14:01 | ED Lower Extremity ---
General Chief Complaint: Trauma-Non Activation Stated Complaint: FALL Nursing Triage Note: Pt states that she fell from sitting position while getting out of bed. Pt states that she fell on her right side. Pt states that she "woke up on the floor". Pt states that her head, right side: UE/LE hurt. Pt has two small skin tears to right arm. Nursing Sepsis Screen: No Definite Risk History of Present Illness Date Seen by Provider: Jan 01, 2018 Time Seen by Provider: 13:30 Initial Comments 62-year-old female Patient reports yesterday morning that she fell while getting out of bed. She's had a previous left total knee replacement. She is concerned that she may have injured her right or left knee. She also has superficial abrasions to her right upper extremity. Location Injury Occurred: home Onset: yesterday Pain/Injury Location: left knee Method of Injury: fell Allergies and Home Medications Allergies Coded Allergies: bacitracin (Verified Allergy, Intermediate, "I BREAK OUT IN A RASH ALL OVER.", 08/26/16) neomycin (Verified Allergy, Intermediate, "I BREAK OUT IN A RASH ALL OVER. ", 08/26/16) polymyxin B (Verified Allergy, Intermediate, "I BREAK OUT IN A RASH ALL OVER.", 08/26/16) ibuprofen (Verified Allergy, Unknown, 07/04/17) Home Medications Albuterol Sulfate 2.5 Mg/3 Ml Vial.neb, 2.5 MG NEB Q6H PRN for SHORTNESS OF BREATH, (Reported) Albuterol Sulfate 1 Puff Puff, 2 PUFF IH Q4H PRN for SHORTNESS OF BREATH, ( Reported) 1 PUFF = 90 MCG Alendronate Sodium 70 Mg Tablet, 70 MG PO Sa, (Reported) Apixaban 5 Mg Tablet, 5 MG PO BID, (Reported) Aripiprazole 10 Mg Tablet, 10 MG PO DAILY, (Reported) Baclofen 20 Mg Tablet, 20 MG PO TID, (Reported) Budesonide/Formoterol Fumarate 10.2 Gm Hfa.aer.ad, 2 PUFF IH BID, (Reported) Buspirone HCl 5 Mg Tablet, 5 MG PO Q8H PRN for ANXIETY, (Reported) Cetirizine HCl 10 Mg Tablet, 10 MG PO DAILY, (Reported) Clonazepam 1 Mg Tablet, 1 MG PO HS, (Reported) Colesevelam HCl 625 Mg Tablet, 1,250 MG PO BID, (Reported) TAKES 2 (625MG) TABLETS Diltiazem HCl 240 Mg Cap.er.deg, 240 MG PO DAILY, (Reported) Diphenoxylate HCl/Atropine 1 Each Tablet, 2 TAB PO QID PRN for DIARRHEA, ( Reported) Donepezil HCl 10 Mg Tablet, 10 MG PO HS, (Reported) Ergocalciferol (Vitamin D2) 50,000 Unit Capsule, 50,000 UNIT PO [place], (Reported) Fluticasone Propionate 16 Gm [place].susp, 2 SPRAYS NS BID, (Reported) Gabapentin 600 Mg Tablet, 600 MG PO TID, (Reported) Lamotrigine 25 Mg Tablet, 75 MG PO HS, (Reported) TAKES 3 (25MG) TABLETS Magnesium Oxide 400 Mg Tablet, 400 MG PO DAILY, (Reported) Memantine HCl 10 Mg Tablet, 10 MG PO HS, (Reported) Mirtazapine 45 Mg Tablet, 45 MG PO HS, (Reported) Montelukast Sodium 10 Mg Tablet, 10 MG PO HS, (Reported) Mv,Ca,Min/Iron Fum/FA/Vit K 1 Each Tablet, 1 TAB PO DAILY, (Reported) Nitroglycerin 0.4 Mg Tab.subl, 0.4 MG PO UD PRN for CHEST PAIN, (Reported) Omeprazole 40 Mg Capsule.dr, 40 MG PO DAILY, (Reported) Ondansetron 4 Mg Tab.rapdis, 4 MG SL Q4H PRN for NAUSEA/VOMITING-1ST LINE, ( Reported) Oxybutynin Chloride 10 Mg Tab.er.24, 10 MG PO DAILY, (Reported) Primidone 250 Mg Tablet, 250 MG PO TID, (Reported) Ranitidine HCl 150 Mg Tablet, 150 MG PO BID, (Reported) Rifaximin 550 Mg Tablet, 550 MG PO TID, (Reported) Ropinirole HCl 2 Mg Tablet, 2 MG PO HS, (Reported) Sertraline HCl 100 Mg Tablet, 100 MG PO DAILY, (Reported) Simvastatin 20 Mg Tablet, 20 MG PO HS, (Reported) Sumatriptan Succinate 100 Mg Tablet, 100 MG PO UD PRN for MIGRAINE, (Reported) Tiotropium [place] 1 Inh Aerp, 1 CAP IH HS, (Reported) Trazodone HCl 150 Mg Tablet, 150 MG PO HS, (Reported) Patient Home Medication List Home Medication List Reviewed: Yes Review of Systems Constitutional: no symptoms reported, see HPI Musculoskeletal: see HPI, joint pain (bilateral anterior knee pain) All Other Systems Reviewed Negative Unless Noted: Yes Past Lwtaoht-Xtdema-Sdrqlj Hx Past Med/Social Hx: Reviewed Nursing Past Med/Soc Hx Patient Social History Alcohol Use: Denies Use Recreational Drug Use: No Type Used: Cigarettes Former Smoker, Quit: Dec 05, 2016 2nd Hand Smoke Exposure: Yes Recent Foreign Travel: No Contact w/Someone Who Travel: No Recent Infectious Disease Expo: No Recent Hopitalizations: No Physical Abuse: No Sexual Abuse: No Mistreated: No Fear: No Immunizations Up To Date Tetanus Booster (TDap): Unknown PED Vaccines UTD: No Date of Pneumonia Vaccine: Nov 11, 2016 Date of Influenza Vaccine: Dec 06, 2016 Seasonal Allergies Seasonal Allergies: Yes Past Medical History Surgeries: Yes (NECK, HIATAL HERNIA, CARDIAC ABLATION, BILAT ELBOW, BILAT CTR, BLADDER SLIN) Abdominal, Appendectomy, Bladder Surgery, Cardiac, Gallbladder, Joint Replacement, Orthopedic, Pancreatic, Tubal Ligation Respiratory: Yes (OXYGEN AT NIGHT AND PRN ) Asthma, COPD, Emphysema Cardiac: Yes (CARDIAC ABLATION 2015) Atrial Fibrillation, Coronary Artery Disease, High Cholesterol, Hypertension, Irregular Heartbeat, Palpitations, Peripheral Vascular Neurological: Yes (PARESTHESIAS OF BILAT LOWER EXT DUE TO FORAMINAL STENOSIS) Dementia, Headaches /Migraines, Neuropathy 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 Disorders: No 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 Sexually Transmitted Disease: No HIV/AIDS: No Genitourinary: Yes (OVERACTIVE BLADDER) UTI-Chronic Gastrointestinal: Yes (FREQ DIARRHEA, DYSPHAGIA) Gastroesophageal Reflux, Celyaa's Esophagus, Hiatal Hernia, Ulcer Musculoskeletal: Yes (CHRONIC NECK AND BACK PAIN, CHRONIC HIP PAIN) Degenerate Disk Disease, Osteoporosis, Arthritis, Fibromyalgia, Chronic Back Pain Endocrine: Yes (DIET CONTROLLED NIDDM--NO LONGER ON MEDICATIONS; THYROID NODULES) Hypothyroidsim, Diabetes, Non-Insulin dep HEENT: Yes (DENTURES) Dysphagia, Glaucoma Loss of Vision: Bilateral Hearing Impairment: Hard of Hearing Cancer: No Psychosocial: Yes (ATTEMPTED SUICIDE > 26 YRS AGO) Anxiety, Suicide Attempts, Depression Integumentary: Yes Psoriasis Blood Disorders: No Adverse Reaction/Blood Tranf: No Family Medical History Cardiovascular disease G8 BROTHER (TRIPLE BYPASS) Diabetes mellitus 19 MOTHER FH: COPD (chronic obstructive pulmonary disease) 19 MOTHER FH: breast cancer 19 MOTHER FHx: brain cancer 19 FATHER No Pertinent Family Hx Physical Exam Vital Signs Vital Signs - First Documented 01/01/18 11:13 Temp 98.0 Pulse 78 Resp 22 B/P (MAP) 132/85 (101) Pulse Ox 96 O2 Delivery Nasal Cannula O2 Flow Rate 3.00 Capillary Refill : Less Than 3 Seconds Height, Weight, BMI Height: 5'3.00" Weight: 166lbs. 0.0oz. 75.626920nn; 28.5 BMI Method:Stated General Appearance: WD/WN, no apparent distress Cardiovascular: normal peripheral pulses, regular rate, rhythm Respiratory: chest non-tender, lungs clear, normal breath sounds Knees: bilateral knee normal inspection (well-healed anterior knee incision on the left compatible with history of TKR.), bilateral knee normal range of motion , bilateral knee no evidence of injury, bilateral knee bone tenderness ( prepatellar), bilateral knee soft tissue tenderness Neurologic/Tendon: normal sensation, normal motor functions, normal tendon functions Neurologic/Psychiatric: no motor/sensory deficits, alert, normal mood/affect, oriented x 3 Skin: normal color, warm/dry Progress/Results/Core Measures Results/Orders Lab Results Laboratory Tests Test 01/01/18 11:59 01/01/18 12:22 Range/Units Urine Color YELLOW Urine Clarity CLEAR Urine pH 6.5 5-9 Urine Specific [place] 1.010 L 1.016-1.022 Urine Protein NEGATIVE NEGATIVE Urine Glucose (UA) 4+ H NEGATIVE Urine Ketones NEGATIVE NEGATIVE Urine Nitrite NEGATIVE NEGATIVE Urine Bilirubin NEGATIVE NEGATIVE Urine Urobilinogen NORMAL NORMAL MG/DL Urine Leukocyte Esterase NEGATIVE NEGATIVE Urine RBC (Auto) 1+ H NEGATIVE Urine RBC NONE /HPF Urine WBC NONE /HPF Urine Squamous Epithelial Cells 0-2 /HPF Urine Crystals NONE /LPF Urine Bacteria NEGATIVE /HPF Urine Casts NONE /LPF Urine Mucus NEGATIVE /LPF Urine Culture Indicated NO White Blood Count 8.6 4.3-11.0 10^3/uL Red Blood Count 4.65 4.35-5.85 10^6/uL Hemoglobin 13.0 11.5-16.0 G/DL Hematocrit 41 35-52 % Mean Corpuscular Volume 87 80-99 FL Mean Corpuscular Hemoglobin 28 25-34 PG Mean Corpuscular Hemoglobin Concent 32 32-36 G/DL Red Cell Distribution Width 17.1 H 10.0-14.5 % Platelet Count 302 130-400 10^3/uL Mean Platelet Volume 9.9 7.4-10.4 FL Neutrophils (%) (Auto) 80 H 42-75 % Lymphocytes (%) (Auto) 14 12-44 % Monocytes (%) (Auto) 5 0-12 % Eosinophils (%) (Auto) 1 0-10 % Basophils (%) (Auto) 0 0-10 % Neutrophils # (Auto) 6.9 1.8-7.8 X 10^3 Lymphocytes # (Auto) 1.2 1.0-4.0 X 10^3 Monocytes # (Auto) 0.4 0.0-1.0 X 10^3 Eosinophils # (Auto) 0.1 0.0-0.3 10^3/uL Basophils # (Auto) 0.0 0.0-0.1 10^3/uL Sodium Level 140 135-145 MMOL/L Potassium Level 4.2 3.6-5.0 MMOL/L Chloride Level 107 98-107 MMOL/L Carbon Dioxide Level 18 L 21-32 MMOL/L Anion Gap 15 H 5-14 MMOL/L Blood Urea Nitrogen 10 7-18 MG/DL Creatinine 0.70 0.60-1.30 MG/DL Estimat Glomerular Filtration Rate > 60 BUN/Creatinine Ratio 14 Glucose Level 130 H 70-105 MG/DL Calcium Level 9.6 8.5-10.1 MG/DL Corrected Calcium 9.5 8.5-10.1 MG/DL Total Bilirubin 0.2 0.1-1.0 MG/DL Aspartate Amino Transf (AST/SGOT) 25 5-34 U/L Alanine Aminotransferase (ALT/SGPT) 20 0-55 U/L Alkaline Phosphatase 98 40-136 U/L Total Protein 6.7 6.4-8.2 GM/DL Albumin 4.1 3.2-4.5 GM/DL My Orders Orders - SHUBH[facility] CODY Cbc With Automated Diff (01/01/18 12:00) Comprehensive Metabolic Panel (01/01/18 12:00) Ua Culture If Indicated (01/01/18 12:00) Tramadol Tablet (Ultram Tablet) (01/01/18 13:56) Vital Signs/I&O 01/01/18 01/01/18 11:13 14:14 Temp 98.0 Pulse 78 0 Resp 22 0 B/P (MAP) 132/85 (101) 0/0 Pulse Ox 96 0 O2 Delivery Nasal Cannula O2 Flow Rate 3.00 Blood Pressure Mean: 101 Progress Progress Note : Time: 13:30 Progress Note Patient seen and evaluated, recommended x-rays of the knees. However the patient states she needs to leave for her follow-up appointment with her primary care provider for hypertension. She would just like something acutely for the knee pain. We'll give tramadol 50 mg orally. 1355 discharge instructions and return precautions reviewed with the patient. Departure Impression Primary Impression: Fall Qualified Codes: W19.XXXA - Unspecified fall, initial encounter Additional Impression: Bilateral knee pain Qualified Codes: M25.561 - Pain in right knee; M25.562 - Pain in left knee Disposition: 01 HOME, SELF-CARE Condition: Improved Departure-Patient Inst. Decision time for Depature: 13:55 Referrals: VIPIN GOODMAN DO (PCP/Family) Primary Care Physician Patient Instructions: Knee Pain (DC), Preventing Falls in the Older Adult Add. Discharge Instructions: Use walker for ambulation. Ice to knees 20 minutes every 2 hours as needed. Follow-up with Dr. Ballard if pain is not improving or worsens. Clean wounds to right arm with peroxide. Return to emergency department as needed for new, acute medical concerns. All discharge instructions reviewed with patient and/or family. Voiced understanding. Copy Copies To 1: ERIC BALLARD MD, AMY ARNP Jan 01, 2018 14:01
[2018-01-01 14:14] VITALS: BP 0/0
== END 2018-01-01 14:14 | disposition home or self-care (01) ==
LOC: EDUNIT# 10:05 → ER 10:06
DX: M25.561 Pain in right knee (principal); M25.562 Pain in left knee; J43.9 Emphysema, unspecified; I48.91 Unspecified atrial fibrillation; I25.10 Atherosclerotic heart disease of native coronary artery without angina pectoris; E78.00 Pure hypercholesterolemia, unspecified; I10 Essential (primary) hypertension; E11.42 Type 2 diabetes mellitus with diabetic polyneuropathy; E03.9 Hypothyroidism, unspecified; F41.9 Anxiety disorder, unspecified; F32.9 Major depressive disorder, single episode, unspecified; I73.9 Peripheral vascular disease, unspecified; M81.0 Age-related osteoporosis without current pathological fracture; G43.909 Migraine, unspecified, not intractable, without status migrainosus; K21.9 Gastro-esophageal reflux disease without esophagitis; Z87.440 Personal history of urinary (tract) infections; Z91.5 Personal history of self-harm; Z80.3 Family history of malignant neoplasm of breast; Z80.8 Family history of malignant neoplasm of other organs or systems; Z82.49 Family history of ischemic heart disease and other diseases of the circulatory system; Z96.652 Presence of left artificial knee joint; Z88.0 Allergy status to penicillin; Z88.8 Allergy status to other drugs, medicaments and biological substances; Z88.6 Allergy status to analgesic agent; Z79.51 Long term (current) use of inhaled steroids; Z79.01 Long term (current) use of anticoagulants; Z87.891 Personal history of nicotine dependence; Z87.19 Personal history of other diseases of the digestive system; Z90.89 Acquired absence of other organs; Z98.51 Tubal ligation status; W06.XXXA Fall from bed, initial encounter
CPT/HCPCS: 36415; 80053; 81000; 85025

== ENCOUNTER → 2018-01-09 | Outpatient (CLI) | payer MEDICARE, MEDICAID ==
[2018-01-09 17:35] LABS: ALANINE AMINOTRANSFERASE 25 U/L (0-55); ALBUMIN 4.3 GM/DL (3.2-4.5); ALKALINE PHOSPHATASE 100 U/L (40-136); BILIRUBIN,DIRECT < 0.1 MG/DL (0.0-0.3); BILIRUBIN,INDIRECT 0.1 MG/DL; BILIRUBIN,TOTAL 0.2 MG/DL (0.1-1.0); TOTAL PROTEIN 7.2 GM/DL (6.4-8.2)
== END ==
LOC: LAB 16:47
PROVIDERS: ATTEND Nurse Practitioner
DX: K83.8 Other specified diseases of biliary tract (principal)
CPT/HCPCS: 36415; 80076

== ENCOUNTER → 2018-01-09 | Outpatient (CLI) | payer MEDICARE, MEDICAID | LOC: LAB 17:02 | PROVIDERS: ATTEND Physician Assistant | DX: R32 Unspecified urinary incontinence (principal) | CPT/HCPCS: 87077; 87088; 87186 ==

== ENCOUNTER → 2018-01-14 | Outpatient (CLI) | payer MEDICARE, MEDICAID ==
[~2018-01-14] MED LIST changes: +RT-ALBUTEROL SULF 2.5 MG/3 ML PRE-MIX VIAL INH ONE
== END ==
LOC: RT 09:43
PROVIDERS: ATTEND Internal Medicine Pulmonary Disease
DX: J44.9 Chronic obstructive pulmonary disease, unspecified (principal)
CPT/HCPCS: 94060; 94726; 94729

== ENCOUNTER → 2018-01-23 | Outpatient (CLI) | payer MEDICARE, MEDICAID ==
[~2018-01-23] MED LIST changes: -RT-ALBUTEROL SULF 2.5 MG/3 ML PRE-MIX VIAL INH ONE
--- NOTE | 2018-01-23 12:41 | Diagnostic Imaging Report ---
PROCEDURE: CT chest without contrast. TECHNIQUE: Multiple contiguous axial images were obtained through the chest without the use of intravenous contrast. INDICATION: Chest pain. FINDINGS: The previous CT chest exam of 04/23/2016 noted emphysematous changes involving both lungs and mild cardiomegaly. There was no evidence for an acute cardiopulmonary abnormality, however. On this exam, the emphysematous changes involving both lungs are again visualized and no different. There is no sign of failure, pneumonia, or pleural effusion to indicate an acute abnormality. There is no parenchymal lung mass identified either. The heart size is within normal limits and stable when compared to the prior exam. Coronary artery calcifications are again noted. The aorta is not abnormally dilated. There is no obvious mediastinal or hilar adenopathy. The thyroid gland where visualized is unremarkable. There is no evidence for a breast mass. The sections through the upper abdomen fail to show any sign of an acute abnormality. The bone windows are unremarkable for a fracture or for a destructive lesion. IMPRESSION: 1. The emphysematous changes involving both lungs seen on the prior study are again evident and no different. There is no acute cardiopulmonary abnormality noted. 2. The heart is not enlarged, but there are coronary artery calcifications. Dictated by: Dictated on workstation # [id number]
== END ==
LOC: RAD 11:26
PROVIDERS: ATTEND Nurse Practitioner Family
DX: J43.9 Emphysema, unspecified (principal); I25.10 Atherosclerotic heart disease of native coronary artery without angina pectoris; J45.909 Unspecified asthma, uncomplicated
CPT/HCPCS: 71250

== ENCOUNTER → 2018-02-05 | Outpatient (CLI) | payer MEDICARE, MEDICAID ==
[~2018-02-05] MED LIST changes: +SUCR1TAB36 PO
--- NOTE | 2018-02-05 08:22 | Diagnostic Imaging Report ---
PROCEDURE: CT sinuses without contrast TECHNIQUE: Multiple contiguous axial images were obtained through the sinuses without the use of intravenous contrast. Coronal and sagittal reformations were then performed. INDICATION: Right facial swelling. Axial CT images of the maxillofacial region are obtained. FINDINGS: Visualized paranasal sinuses appear clear. Globes are intact. There is no retrobulbar hematoma. There is no evidence of subcutaneous fluid collection or mass. There is moderate degenerative change in the left temporomandibular joint. Previous surgery is noted in the cervical spine. IMPRESSION: Left temporomandibular degenerative change with otherwise unremarkable CT of maxillofacial regions. Dictated by: Dictated on workstation # [id number]
== END ==
LOC: RAD 07:55
PROVIDERS: ATTEND Nurse Practitioner Family
DX: M26.69 Other specified disorders of temporomandibular joint (principal); R22.0 Localized swelling, mass and lump, head
CPT/HCPCS: 70486

== ENCOUNTER 2018-02-09 10:15 | Outpatient (CLI) | payer MEDICARE, MEDICAID ==
[~2018-02-09] VITALS: Ht 160 cm; Wt 75.3 kg
[~2018-02-09 10:15] MED LIST changes: -SUCR1TAB36 PO
[2018-02-10] MEDS ORDERED: SUCR1TAB36 PO (11:24)
[2018-02-10] MEDS ORDERED: PANT40TA2 PO (13:23)
== END 2018-02-09 11:03 | disposition home or self-care (01) ==
LOC: PREOP 10:15
PROVIDERS: ATTEND Surgery
DX: Z01.818 Encounter for other preprocedural examination (principal)

== ENCOUNTER → 2018-02-09 | Outpatient (CLI) | payer MEDICARE, MEDICAID | LOC: RT 10:08 | PROVIDERS: ATTEND Nurse Practitioner Family | DX: J44.9 Chronic obstructive pulmonary disease, unspecified (principal); R06.02 Shortness of breath | CPT/HCPCS: 94761 ==

== ENCOUNTER 2018-02-10 09:47 | Day surgery (SDC) | payer MEDICARE, MEDICAID ==
[~2018-02-10] VITALS: Ht 160 cm; Wt 75.3 kg
--- OUTSIDE RECORDS SUMMARY | 2018-02-10 09:55 | XMS REPORT | Clinical Summary ---
Author Author [facility] Organization [facility] Address Unknown Phone Unavailable Care Team Providers Care Silk Conditioner Name Role Phone Apoorva Shane MD Unavailable Edgardo Torres MD Unavailable Amanda Bhandari Unavailable Montana Villasenor MD Unavailable Gilles Ness MD Unavailable Rain Tariq MD Unavailable Harika Hsu MD Unavailable Nayana Mccarty RN Unavailable Unavailable Symone Lee Unavailable Unavailable Lia Griffin MD PCP Source Comments Some departments are not documenting in the electronic medical record. If you do not see the information that you expected, contact Release of Information in the Health Information Management department at [phone] for further assistance in locating additional records.[facility] Allergies Active Allergy Reactions Severity Noted Date Comments Ibuprofen RASH Medium 06/09/2009 Naproxen Sodium NAUSEA ONLY Low 11/13/2017 Xtwce-Zlejr-Mcdtvqm-Pramo RASH Medium 01/23/2017 xine Current Medications Prescription [...] tablet every [address] Take 40 mg by [...] Shake bottle Allergic Rhinitis gently before using. oxybutynin XL (DITROPAN Take 1 tablet by mouth 90 tablet 3 07/11/19 Active XL) 10 mg daily. Do not cut/ crush/ 18 tabletIndications: chew Urinary incontinence, unspecified type ARIPiprazole (ABILIFY) 10 Take 10 mg by mouth Active mg tablet daily. cetirizine (ZYRTEC) 10 mg Take 10 mg by mouth every Active tablet morning. metoclopramide (REGLAN) Take 1 tablet before 90 tablet 1 10/30/19 Active 10 mg tabletIndications: meals 18 Diarrhea, unspecified type clonazePAM (KLONOPIN) 1 Take 1 mg by mouth daily Active mg tablet as needed. mirtazapine (REMERON) 45 Take 45 mg by mouth at Active mg tablet bedtime daily. nitrofurantoin Take one capsule by mouth 14 capsule 0 01/13/20 Active monohyd/m-cryst every 12 hours. Take with 18 (MACROBID) 100 mg food. capsuleIndications: Urinary tract infection without hematuria, site unspecified omeprazole DR(+) Take one capsule by mouth 60 capsule 2 01/27/20 Active (PRILOSEC) 40 mg capsule twice daily before meals. 18 sertraline (ZOLOFT) 100 Take 100 mg by mouth Active mg tablet daily. dapagliflozin 5 mg tab Take 5 mg by mouth daily. Active furosemide (LASIX) 20 mg Take 20 mg by mouth every Active tablet morning. alendronate (FOSAMAX) 70 Take 70 mg by mouth every Active mg tablet 7 days. Take at least 30 minutes before breakfast with plain water. Do not lie down for 30 minutes. primidone (MYSOLINE) 250 Take 250 mg by mouth Active mg tablet twice daily. erenumab-aooe (AIMOVIG Inject 70 mg under the Active AUTOINJECTOR (2 PACK)) 70 skin every 30 days. mg/mL injection syringe levofloxacin (LEVAQUIN Take by mouth daily. Active PO)Indications: 7 PREDNISONE POIndications: Take by mouth daily. Active 5 day taper nystatin (NYSTOP) 100,000 Apply topically to 30 g 0 07/10/19 Discontin unit/g topical affected area four times 18 18 ued powderIndications: Yeast daily. dermatitis ranitidine(+) (ZANTAC) Take one tablet by mouth 60 tablet 3 01/07/20 01/27/20 Discontin 300 mg tablet midday and one at 18 18 ued bedtime. ranitidine(+) (ZANTAC) Take one tablet by mouth 60 tablet 3 01/27/20 01/27/20 Discontin 300 mg tablet midday and one at 18 18 ued bedtime. fluconazole (DIFLUCAN) Take one tablet by mouth 1 tablet 0 01/29/20 01/29/20 150 mg tablet once for 1 dose. 18 18 Active Problems Problem Noted Date Abnormal brain [...] Overview: Added automatically from request for surgery [id number] Bile duct abnormality 11/05/2017 Overview: Added automatically from request for surgery [id number] Nausea and vomiting 11/05/2017 Overview: Added automatically from request for surgery [id number] Bilateral leg weakness 10/29/2017 Last Assessment & [...] DM and no follow-up for her MS 10/29/17 - UDS shows large capacity; incomplete emptying; low pressure DO. +LPP; hypotonic. There is much improved emptying from prior to sling excision. Yet, continued incontinence and some incomplete emptying. 12/16/17 - 300 U botox 01/28/18 - Stopped CIC b/c of little urine return. PVR 215. Re-instructed on how to CIC L ast Assessment & Plan: 62 y.o. female with h/o MS, LUTS, urinary urgency s/p urethral sling (2014), s/p urethrolysis and sling excision on 06/13/17 and 300 U botox injection 12/16/[address] Garcia presents for follow-up. Most recent UDS on 10/29/17 reported large capacity, incomplete emptying, low pressure DO, positive LBP, hypotonicity. She has not been performing CIC because of decreased return of urine. CIC re-teaching today in clinic. She is on Levaquin for recent UTI diagnosed at PCP. 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 Hospital Lab Amanda Bhandari ARNP Encounter 01/26/2018 Office Visit Gastroenterology Amanda Bhandari ARNP Nausea and vomiting in adult (Primary Dx); Gastroparesis; Gastroesophageal reflux disease without esophagitis 01/26/2018 Prep for Case Gastroenterology Amanda Bhandari ARNP Nausea and vomiting in adult (Primary Dx); Dysphagia, unspecified type; Loose stools; Incontinence of feces, unspecified fecal incontinence type; Regurgitation of food 01/16/2018 Orders Only Gastroenterology Amanda Bhandari ARNP Dilation of common bile duct 01/12/2018 Telephone Gastroenterology Amanda Bhandari ARNP Results 01/12/2018 Orders Only Urology Jean Pierre Fregoso PA-C Urinary tract infection without hematuria, site unspecified (Primary Dx) 01/09/2018 Telephone Urology Jean Pierre Fregoso PA-C Follow-up Phone Call 01/09/2018 Telephone UrologBalbina Shoemaker MD Urinary Problem 01/08/2018 Telephone Urology Balbina Garcia MD Urinary Catheter Problem 01/06/2018 Refill Gastroenterology Amanda Bhandari ARNP 01/02/2018 [facility] Benito Albrecht MD Weight loss Encounter 01/02/2018 Telephone Gastroenterology Amanda Bhandari ARNP Follow-up Phone Call 01/02/2018 Anesthesia Sandra Lakhani, PATIENT REGISTRAR Event 01/02/2018 Procedure Pass 01/02/2018 Surgery Benito Albrecht MD ESOPHAGOGASTRODUODENOSCOP Y ENDOSCOPIC ULTRASOUND 12/29/2017 Telephone Urology Edson Negrete MD General Question 12/29/2017 Telephone Urology Balbina Garcia MD General Question 12/29/2017 Telephone UrologBalbina Shoemaker MD General Question 12/24/2017 Ancillary Radiology Outpatient, Radiologist Diagnosis unknown Orders 12/22/2017 Telephone Urology Javier Hawk MD Urinary Frequency 12/22/2017 Telephone Balbina Burns MD General Question 12/19/2017 Hospital Radiology Encounter 12/17/2017 Telephone UrologBalbina Shoemaker MD General Question 12/16/2017 Hospital Balbina Garcia MD Neurogenic bladder Encounter 12/16/2017 [...] MD Hematuria , unspecified type (Primary Dx) 10/29/2017 Procedure Pass Radiology 10/29/2017 Procedure Pass Radiology from Last 3 Months [...] Vital Sign Reading Time Taken Blood Pressure 95/68 01/28/2018 8:33 AM CDT Pulse 94 01/28/2018 8:33 AM CDT Temperature 37.1 C (98.8 F) 01/26/2018 8:06 AM CDT Respiratory Rate 18 01/26/2018 8:06 AM CDT Oxygen Saturation 98% 01/02/2018 10:42 AM CDT Inhaled Oxygen - - Concentration Weight 76.7 kg (169 lb) 01/28/2018 8:33 AM CDT Height 160 cm (5' 3") 01/28/2018 8:33 AM CDT Body Mass Index 29.94 01/28/2018 8:33 AM CDT Plan of Treatment Date Type Specialty Care Team Description 03/16/2018 Surgery Endoscopy, Physician MANOMETRY ESOPHAGEAL 03/16/2018 Procedure Pass 03/16/2018 Hospital Endoscopy, Physician Nausea and vomiting in Encounter adult 06/16/2018 Surgery Balbina Garcia MD CYSTOURETHROSCOPY WITH [address] INJECTION FOR [place] [address] [place] [address] BLADDER (BOTOX 300 UNITS) [phone] 06/16/2018 Procedure Pass 06/16/2018 [facility] Balbina Garcia MD Neurogenic bladder Encounter [address] [place] [address] [place] [address] [phone] Health Maintenance Due Date Last Done Comments HEPATITIS C SCREENING 1955 PHYSICAL (COMPREHENSIVE) 1960 EXAM PERTUSSIS VACCINE 1964 HIV SCREENING 1968 TETANUS VACCINE 1970 DILATED EYE EXAM 07/21/1971 FOOT EXAM 07/21/1971 HBA1C 07/21/1971 MICROALBUMIN 07/21/1971 PNEUMONIA VACCINE (DM) 07/21/1971 CERVICAL CANCER SCREENING 07/21/1983 BREAST CANCER SCREENING 1993 COLORECTAL CANCER 07/21/2003 SCREENING SHINGLES RECOMBINANT 07/21/2003 VACCINE (1 of 2) INFLUENZA VACCINE 11/05/2017 06/21/2013 Procedures Procedure Name Priority Date/Time Associated Diagnosis Comments CORTISOL,RANDOM Routine 01/26/2018 Nausea and vomiting in Results for this 9:40 AM CDT adult procedure are in the results section. LIVER FUNCTION PANEL Routine 01/09/2018 Dilation of common bile Results for this 12:00 AM CDT duct procedure are in the results section. TELEMETRY STRIPS-SCAN 01/05/2018 Results for this 2:24 PM CDT procedure are in the results section. SURGICAL PATHOLOGY 01/02/2018 Results for this 12:24 PM CDT procedure are in the results section. ENDOSCOPIC ULTRASOUND 01/02/2018 Results for this REPORT 10:05 AM CDT procedure are in the results section. ESOPHAGOGASTRODUODENOSCOP 01/02/2018 Weight loss Y BIOPSY 9:30 AM CDT Special Needs 3 day - Reminder Call - spoke with pt., 12/30/17 @ 0937 (se)1st call made. Pt scheduled for 01/02/18 procedure 30 11/05/2017 1015 (MF) ESOPHAGOGASTRODUODENOSCOP 01/02/2018 Weight loss Y 9:30 AM CDT Special Needs 3 day - Reminder Call - spoke with pt., 12/30/17 @ 0937 (se)1st call made. Pt scheduled for 01/02/18 procedure 30 11/05/2017 1015 (MF) ESOPHAGOGASTRODUODENOSCOP 01/02/2018 Weight loss Y ENDOSCOPIC ULTRASOUND 9:30 AM CDT Special Needs 3 day - Reminder Call - spoke with pt., 12/30/17 @ 0937 (se)1st call made. Pt scheduled for 01/02/18 procedure 0930 11/05/2017 1015 (MF) CBC STAT 01/02/2018 Results for this 9:00 AM CDT procedure are in the results section. BASIC METABOLIC PANEL STAT 01/02/2018 Results for this 8:50 AM CDT procedure are in the results section. POC GLUCOSE 01/02/2018 Results for this 8:40 AM CDT procedure are in the results section. MRI T-SPINE EXTERNAL Routine 12/19/2017 Diagnosis unknown Results for this IMAGING 12:00 AM CDT procedure are in the results section. ECG-SCAN 12/17/2017 Results for this 12:08 PM CDT procedure are in the results section. POC GLUCOSE 12/16/2017 Results for this 9:30 AM CDT procedure are in the results section. CYSTOSCOPY INJECTION 12/16/2017 Neurogenic bladder NEUROTOXIN 8:30 AM CDT Special Needs 7/27 PER CHANGE FORM CASE MOVED FROM 12/02 TO 12/16 - Tay GUERRA RN ([id number]) POC GLUCOSE 12/16/2017 Results for this 6:26 [...] type procedure are in the results section. from Last 3 Months Results * CORTISOL,RANDOM (01/26/2018 9:40 AM) Cortisol, Random 6.5 5.0 - 20.0 MCG/DL MAIN LAB Specimen Blood Performing Organization Address City/[facility] Phone Number MA[facility] LAB [address] [place] [address] * LIVER FUNCTION PANEL (01/09/2018) Total Bilirubin 0.2 OTHER OUTSIDE LAB Bilirubin, Direct <0.1 OTHER OUTSIDE LAB Albumin 4.3 OTHER OUTSIDE LAB Alk Phosphatase 100 OTHER OUTSIDE LAB AST (SGOT) 27 OTHER OUTSIDE LAB ALT (SGPT) 25 OTHER OUTSIDE LAB Total Protein 7.2 OTHER OUTSIDE LAB Specimen Blood - Blood Narrative Performed At Performing Organization Address City/[facility]/Zipcode Phone Number OTHER OUTSIDE LAB * TELEMETRY STRIPS-SCAN (01/05/2018 2:24 PM) Narrative Performed At Ordered by an unspecified provider. * SURGICAL PATHOLOGY (01/02/2018 12:24 PM) PATHOLOGY REPORT [facility] [email or web address] Department of Pathology and Laboratory Medicine [address] [place] [address] Surgical Pathology Office:[phone] :[phone] SURGICAL PATHOLOGY REPORT NAME: NARA HUIZAR SURG PATH #: [id number] MR #: [id number] SPECIMEN CLASS: SR BILLING #: [id number] ALT ID #:LOCATION: [facility] DATE OF PROCEDURE: 01/02/2018 AGE:62 SEX: F DATE RECEIVED: 01/02/2018 : 1955TIME RECEIVED:12:24 PHYSICIAN: BENITO PERERA DATE OF REPORT: 01/03/2018 COPY TO:DATE OF PRINTIN01/03/2018 ############################## ############################## ############ Final Diagnosis: A. Duodenum biopsy: Normal villous architecture with no diagnostic abnormalities. B. Gastric mucosa, gastric biopsy: Mild chronic inflammation and reactive changes. No H. pylori-like organisms are identified on H and E sections. C. Squamous mucosa, distal esophagus biopsy: No diagnostic abnormalities. D. Squamous mucosa, proximal esophagus biopsy: No diagnostic abnormalities. Attestation: By this signature, I attest that I have personally formulated the final interpretation expressed in this report and that the above diagnosis is based upon my examination of the slides and/or other material indicated in this report. +++ +++ kd/01/03/2018 ############################## ############################## ############ Material Received: A: duodenum bx's B: gastric bx's C: distal esophagus bx's D: proximal esophagus bx's History: 62-year-old female with history of weight loss, bile duct abnormality, nausea and vomiting Gross Description: A.Received in formalin labeled "duodenum biopsies rule out celiac disease" is a 1.2 x 0.4 x 0.2 cm aggregate of mcqueen-brown soft tissue fragments. The specimen is entirely submitted in cassette A1.(lmt) B.Received in formalin labeled "gastric biopsies rule out H. pylori" is a 1.0 x 0.4 x 0.3 cm aggregate of mcqueen-brown soft tissue fragments. The specimen is entirely submitted in cassette B1.(lmt) C.Received in formalin labeled "distal esophagus biopsies rule out EOE" is a 0.8 x 0.2 x 0.2 cm aggregate of mcqueen-brown soft tissue fragments. The specimen is entirely submitted in cassette C1.(lmt) D.Received in formalin labeled "proximal esophagus biopsies rule out EOE" is a 0.6 x 0.2 x 0.2 cm aggregate of mcqueen-brown soft tissue fragments. The specimen is entirely submitted in cassette D1.(lmt) /01/02/2018 Performing Organization Address City/State/Zipcode Phone Number [facility] RES[facility] * ENDOSCOPIC ULTRASOUND REPORT (01/02/2018 10:05 AM) Provation Report Patient Name: Bhupendra HIDALGO OTHER RESULTS Procedure Date: 01/02/2018 10:05 AM [facility]: [id number] Date of : 1955 Gender: Female Attending Physician: Benito Albrecht MD Procedure: Upper EUS Indications: Epigastric abdominal pain, Weight loss Providers: Benito Albrecht MD (Doctor), Anna Vasques RN (Nurse), Elida Fernandez Lithographic Etcher (Lithographic Etcher) Referring Physician: Amanda Ortiz, Edgardo Torres MD Medications: Monitored Anesthesia Care Complications: No immediate complications. Procedure: Pre-Anesthesia Assessment: - Prior to the procedure, a History and Physical was performed, and patient medications and allergies were reviewed. The patient's tolerance of previous anesthesia was also reviewed. The risks and benefits of the procedure and the sedation options and risks were discussed with the patient. All questions were answered, and informed consent was obtained. Prior Anticoagulants: The patient has taken no previous anticoagulant or antiplatelet agents. ASA Grade Assessment: II - A patient with mild systemic disease. After reviewing the risks and benefits, the patient was deemed in satisfactory condition to undergo the procedure. After obtaining informed consent, the endoscope was passed under direct vision. Throughout the procedure, the patient's blood pressure, pulse, and oxygen saturations were monitored continuously. The Endoscope was introduced through the mouth, and advanced to the second part of duodenum. The Endoscope was introduced through the mouth, and advanced to the second part of duodenum. The upper EUS was accomplished without difficulty. The patient tolerated the procedure well. Findings: The linear EUS scope was passed. The celiac trunk was seen and there were no celiac lymph nodes visualized. The left adrenal in the left lobe of the liver were normal-appearing. The pancreas appeared normal without any evidence of chronic pancreatitis or mass or divisum. The pancreatic duct was 3.6 mm in the head and 2 mm in the body. The CBD was 10 mm. No stones were seen in the CBD. Ampulla was normal-appearing. The EGD scope was then passed. Esophagus was normal-appearing. GE junction was at 40 cm. Biopsies were taken from distal and proximal esophagus to rule out histologic esophagitis. Stomach: normal-appearing except for retained food and fluid in the gastric body and part of the gastric mucosa could not be seen. Otherwise mucosa appeared normal. Random biopsies were taken to rule out H. pylori D1-D2: normal-appearing and biopsies were taken to rule out celiac disease. Impression: - The linear EUS scope was passed. The celiac trunk was seen and there were no celiac lymph nodes visualized. The left adrenal in the left lobe of the liver were normal-appearing. The pancreas appeared normal without any evidence of chronic pancreatitis or mass or divisum. The pancreatic duct was 3.6 mm in the head and 2 mm in the body. The CBD was 10 mm. No stones were seen in the CBD. Ampulla was normal-appearing. The EGD scope was then passed. Esophagus was normal-appearing. GE junction was at 40 cm. Biopsies were taken from distal and proximal esophagus to rule out histologic esophagitis. Stomach: normal-appearing except for retained food and fluid in the gastric body and part of the gastric mucosa could not be seen. Otherwise mucosa appeared normal. Random biopsies were taken to rule out H. pylori D1-D2: normal-appearing and biopsies were taken to rule out celiac disease. Estimated Blood Loss: Estimated blood loss: none. Recommendation: - Patient has a contact number available for emergencies. The signs and symptoms of potential delayed complications were discussed with the patient. Return to normal activities tomorrow. Written discharge instructions were provided to the patient. - Resume previous diet. - Continue present medications. - Await path results. - Return to referring physician. Scope In: 10:13:01 AM Scope Out: 10:26:59 AM Total Procedure Duration Time 0 hours 13 minutes 58 seconds Procedure Code(s): --- Professional --- 20012, Esophagogastroduodenoscopy, flexible, transoral; with endoscopic ultrasound examination limited to the esophagus, stomach or duodenum, and adjacent structures 19242, 59, Esophagogastroduodenoscopy, flexible, transoral; with biopsy, single or multiple CPT copyright 2016 [employer]. All rights reserved. The codes documented in this report are preliminary and upon tanker serviceman review may be revised to meet current compliance requirements. Attending Participation: I personally performed the entire procedure. Benito Albrecht MD 01/02/2018 10:30:16 AM The attending physician has electronically signed and finalized this document. Number of Addenda: 0 Note Initiated On: 01/02/2018 10:05 AM Performing Organization Address City/[facility]/Zipcode Phone Number OTHER RESULTS * CBC (01/02/2018 9:00 AM) White Blood Cells 9.1 4.5 - 11.0 K/UL [facility] RBC 4.53 4.0 - 5.0 M/UL [facility] Hemoglobin 12.8 12.0 - 15.0 GM/DL [facility] Hematocrit 39.4 36 - 45 % [facility] MCV 87.1 80 - 100 FL [facility] MCH 28.2 26 - 34 PG [facility] MCHC 32.4 32.0 - 36.0 G/DL [facility] RDW 17.8 (H) 11 - 15 % [facility] Platelet Count 288 150 - 400 K/UL [facility] MPV 8.4 7 - 11 FL [facility] Specimen Blood Performing Organization Address City/[facility]/Zipcode Phone Number MAIN LAB [address] [place] [address] * BASIC METABOLIC PANEL (01/02/2018 8:50 AM) Sodium 140 137 - 147 MMOL/L [facility] Potassium 4.3 3.5 - 5.1 MMOL/L [facility] Chloride 107 98 - 110 MMOL/L [facility] CO2 24 21 - 30 MMOL/L [facility] Anion Gap 9 3 - 12 [facility] Glucose 107 (H) 70 - 100 MG/DL [facility] Blood Urea Nitrogen 11 7 - 25 MG/DL [facility] Creatinine 0.52 0.4 - 1.00 MG/DL [facility] Calcium 9.5 8.5 - 10.6 MG/DL [facility] eGFR Non >60 >60 [...] Blood Performing Organization Address City/State/Zipcode Phone Number [facility] [address] [place] [address] * POC GLUCOSE (01/02/2018 8:40 AM) Only the most recent of 3 results within the time period is included. Glucose, POC 106 (H) 70 - 100 MG/DL [facility] Performing Organization Address City/[facility]/Zipcode Phone Number [facility] [address] [place] [phone] * MRI T-SPINE EXTERNAL IMAGING (12/19/2017) Narrative Performed At This order has been auto finalized and does not contain a result. * ECG-SCAN (12/17/2017 12:08 PM) Narrative Performed At Ordered by an unspecified provider. * MRI C-SPINE WO/W CONTRAST (11/13/2017 2:44 [...] on 11/13/2017 2:47 PM. Performing Organization Address [facility] Phone Number RAD RESULTS * POC CREATININE, RAD (11/13/2017 1:44 PM) Creatinine, POC 0.5 0.4 - 1.00 MG/DL MAIN LAB Performing Organization Address [facility] [place] Phone Number [email or web address] [address] [place] [address] * PROTEIN/CR RATIO,UR RAN (11/13/2017 10:56 AM) Protein, Random <4 MG/DL MAIN LAB Creatinine, Random 27 MG/DL MAIN LAB Specimen Urine - Urine Performing Organization [facility] [place] Phone Number [facility] [address] [place] [address] * POC URINE DIPSTICK AUTO READ (11/13/2017) Urine Glucose POC norm IN CLINIC Urine Bilirubin POC neg IN CLINIC Urine Ketone POC neg IN CLINIC Urine Specific [place] 1.005 IN CLINIC POC Urine Blood POC 50 IN CLINIC Urine PH POC 6 IN CLINIC Urine Protein POC neg IN CLINIC Urine Urobilinogen POC norm IN CLINIC Urine Nitrite POC neg IN CLINIC Urine Leukocytes POC neg IN CLINIC Color,UA IN CLINIC Turbidity,UA IN CLINIC Specimen Urine Performing Organization Address [facility]/Zipcode Phone Number IN CLINIC from Last 3 Months
--- OUTSIDE RECORDS SUMMARY | 2018-02-10 09:55 | XMS REPORT | Encounter Summary ---
Author Author [facility] Organization [facility] Address Unknown Phone Unavailable Care Team Providers Care Wire Temperer Name Role Phone Apoorva Shane MD Unavailable Edgardo Torres MD Unavailable Amanda Bhandari Unavailable Montana Villasenor MD Unavailable Gilles Ness MD Unavailable Rain Tariq MD Unavailable Harika Hsu MD Unavailable Nayana Mccarty RN Unavailable Unavailable Symone Lee Unavailable Unavailable Lia Griffin MD PCP Reason for Visit * Reason Comments DME Order Cath supply Encounter Details Date Type Department Care Team Description 01/30/2018 Telephone [facility] Balbina Garcia MD DME Order (Cath supply) Physicians - Urology [address] [facility] [facility] Ortho and Medical MS [address] [place] [address] [address] [facility] [phone] [place] [address] Social History Tobacco Use Types [...] Miscellaneous Notes * Telephone Encounter - Hans BroussardJERMAIN - 01/30/2018 10:37 AM CDT Patient called and left message that she would like the gentle cath for her CIC. Faxed order to [facility] for 12 FR CIC 6 times daily. in this encounter Plan of Treatment Date Type Specialty Care Team Description 03/16/2018 Surgery Endoscopy, Physician MANOMETRY ESOPHAGEAL 03/16/2018 Procedure Pass 03/16/2018 [facility] Endoscopy, Physician Nausea and vomiting in Encounter adult 06/16/2018 Surgery Balbina Garcia MD CYSTOURETHROSCOPY WITH [address] INJECTION FOR MS [address] [place] [address] BLADDER (BOTOX 300 UNITS) [phone] 06/16/2018 Procedure Pass 06/16/2018 [facility] Balbina Garcia MD Neurogenic bladder Encounter [address] [place] [address] [phone] as of this encounter Visit Diagnoses Not on filein this encounter
--- OUTSIDE RECORDS SUMMARY | 2018-02-10 09:55 | XMS REPORT | Encounter Summary ---
Author Author [facility] Organization [facility] Address Unknown Phone Unavailable Care Team Providers Care Heater Helper Name Role Phone Apoorva Shane MD Unavailable Edgardo Torres MD Unavailable Amanda Bhandari Unavailable Montana Villasenor MD Unavailable Gilles Ness MD Unavailable Rain Tariq MD Unavailable Harika Hsu MD Unavailable Nayana Mccarty RN Unavailable Unavailable Symone Lee Unavailable Unavailable Lia Griffin MD PCP Encounter Details Date Type Department Care Team Description 01/28/2018 Prep for Case [facility] Balbina Garcia MD Neurogenic bladder Physicians - Urology [address] (Primary Dx); Ortho and Medical MS [address] hyperreflexia [address] [place] [address] [phone] [place] [address] Social History Tobacco Use Types [...] Surgery Balbina Garcia MD CYSTOURETHROSCOPY WITH [address] INJECTION FOR MS [address] [place] [address] BLADDER (BOTOX 300 UNITS) [phone] 06/16/2018 Procedure Pass 06/16/2018 [facility] Balbina Garcia MD Neurogenic bladder Encounter [address] [place] [address] [phone] as of this encounter Visit Diagnoses Diagnosis Neurogenic bladder - Primary Neurogenic bladder, NOS Detrusor hyperreflexia Cauda equina syndrome with neurogenic bladder
--- OUTSIDE RECORDS SUMMARY | 2018-02-10 09:55 | XMS REPORT | Encounter Summary ---
Author Author [facility] Organization [facility] Address Unknown Phone Unavailable Care Team Providers Care Hall Tender Name Role Phone Apoorva Shane MD Unavailable Edgardo Torres MD Unavailable Amanda Bhandari Unavailable Montana Villasenor MD Unavailable Gilles Ness MD Unavailable Rain Tariq MD Unavailable Harika Hsu MD Unavailable Nayana Mccarty RN Unavailable Unavailable Symone Lee Unavailable Unavailable Lia Griffin MD PCP Reason for Visit * Reason Comments Other Voiding dysfunction Encounter Details Date Type Department Care Team Description 01/28/2018 Office Visit [facility] Balbina Garcia MD Neurogenic bladder Physicians - Urology [address] Ortho and Medical MS [address] [place] [address] [address] [facility] [phone] [place] [address] Social History Tobacco Use Types [...] Pulse 94 01/28/2018 8:33 AM CDT Temperature - - Respiratory Rate - - Oxygen Saturation - - Inhaled Oxygen - - Concentration Weight 76.7 kg (169 lb) 01/28/2018 8:33 AM CDT Height 160 cm (5' 3") 01/28/2018 8:33 AM CDT Body Mass Index 29.94 01/28/2018 8:33 AM CDT in this encounter Functional Status [...] this encounter Instructions * Patient Instructions - Yuliet Wilson RN - 01/28/2018 8:45 AM CDT [facility] Physicians - Urology Pre-Operative Instructions Surgical Procedure: Cystoscopy with Botox Date of Surgery: 06/16/18 Arrival Time at the Admission Office ([facility]): Will Call To ensure that your surgery [...] multivitamin, red yeast rice, SOLO-e, saw palmetto, [place] wort, turmeric, valerian root, Vascepa, Vitamin A, Vitamin B complex, Vitamin C, Vitamin E ? You DO NOT need to stop: iron, magnesium, potassium 7 days prior to surgery: ? Stop anti-inflammatory medications such as ibuprofen (Advil, Motrin), naproxen (Aleve), Tiana-Artesia, Excedrin, Midol, celecoxib (Celebrex), diclofenac (Voltaren), diflunisal, [...] evenings, nights, weekends, and holidays, contact [facility] farm equipment operator and request they contact the on-call Urology Resident at [phone]. in this encounter Progress Notes * Neetu Mann RN - 01/28/2018 8:45 AM CDT Taught patient straight cathing again. Patient fully participated in the teaching. Patient's anatomy is different than text book and her urethra is in her vaginal opening. Patient did use a mirror that was attached to her inner thigh. Patient felt that made things a little easier as she did not have three things to hold. Patient was using 14Fr catheters. She will try all of the catheters in the bag and call us back and let us know which one works best for her. Patient was successful after 4 tries and she emptied 300mL out of bladder. * Balbina Garcia MD - 01/28/2018 8:45 AM CDT Formatting of this note may be different from the original. UROLOGY CLINIC NOTE Date of Service: 01/28/2018 Subjective: History of Present Illness Nara Huizar is a 62 y.o. female with h/o MS, LUTS, urinary urgency s/p urethral sling (2014), s/p urethrolysis and sling excision on 06/13/17 and 300 U botox injection 12/16/[address] Garcia presents for follow-up. Most recent UDS on 10/29/17 reported large capacity, incomplete emptying, low pressure DO, positive LBP, hypotonicity. She has been instructed to perform CIC q3H. She reports that she stopped CIC 5 days ago because she was having very little urine return. She states that she would still use 3 thin pads per day while CIC , and has now started wearing depends which she soaks since stopping CIC. She states that she will change her depends 2-3 times daily. She is also taking oxybutynin 10 XL twice daily, however prescribed daily. She saw her PCP yesterday because of new onset dysuria and was prescribed Levaquin because UA was concerning for UTI. PVR today 215. Current Outpatient Prescriptions Medication Sig Dispense Refill albuterol (VENTOLIN HFA) 90 mcg/actuation inhaler Inhale 2 puffs by mouth into the lungs daily. Shake well before use. alendronate (FOSAMAX) 70 mg tablet Take 70 mg by mouth every 7 days. Take at least 30 minutes before breakfast with plain water. Do not lie down for 30 minutes. apixaban (ELIQUIS) 5 mg tab tablet Take [...] mg by mouth twice daily with meals. dapagliflozin 5 mg tab Take 5 mg by mouth daily. diltiazem CD (CARDIZEM CD) 240 mg capsule Take 240 mg by mouth daily. diphenoxylate/atropine (LOMOTIL) 2.5/0.025 mg tablet Take 2 tablets by mouth four times daily as needed for Diarrhea. donepezil (ARICEPT) 10 mg tablet Take 10 mg by mouth At Bedtime Daily. erenumab-aooe (AIMOVIG AUTOINJECTOR (2 PACK)) 70 mg/mL injection syringe Inject 70 mg under the skin every 30 days. ergocalciferol (VITAMIN D-2) 50,000 unit capsule Take 1 capsule by mouth every 7 days. Sundays fluticasone (FLONASE) 50 mcg/actuation nasal spray Apply 1-2 sprays to each nostril as directed daily as needed. Shake bottle gently before using. furosemide (LASIX) 20 mg tablet Take 20 mg by mouth every morning. gabapentin (NEURONTIN) 400 mg capsule Take 600 mg by mouth three times daily. levofloxacin (LEVAQUIN PO) Take by mouth daily. memantine,+, (NAMENDA) 10 mg tablet Take 10 mg by mouth daily. metoclopramide (REGLAN) 10 mg tablet Take 1 tablet before meals 90 tablet 1 mirtazapine (REMERON) 45 mg tablet Take 45 mg by mouth at bedtime daily. montelukast (SINGULAIR) 10 mg tablet Take 10 mg by mouth at bedtime daily. MULTIVIT WITH CALCIUM,IRON,MIN (WOMEN'S MULTIPLE VITAMINS PO) Take 1 tablet by mouth daily. nitrofurantoin monohyd/m-cryst (MACROBID) 100 mg capsule Take one capsule by mouth every 12 hours. Take with food. 14 capsule 0 nitroglycerin (NITROSTAT) 0.[address] 0.4 mg under tongue every 5 minutes as needed for Chest Pain. omeprazole DR(+) (PRILOSEC) 40 mg capsule Take one capsule by mouth twice daily before meals. 60 capsule 2 other medication 1 Dose. 5L/NC home oxygen oxybutynin XL (DITROPAN XL) 10 mg tablet Take 1 tablet by mouth daily. Do not cut/ crush/ chew [address] (PROTONIX) 40 mg tablet Take 40 mg by mouth twice daily. PREDNISONE PO Take by mouth daily. primidone (MYSOLINE) 250 mg tablet Take 250 mg by mouth twice daily. rifAXIMin (XIFAXAN) 550 mg tablet Take 550 mg by mouth every 8 hours. ropinirole (REQUIP) 2 mg tablet Take 2 mg by mouth At Bedtime Daily. sertraline (ZOLOFT) 100 mg tablet Take 100 mg by mouth daily. simvastatin (ZOCOR) 20 mg tablet Take 20 mg by mouth At Bedtime Daily. tiotropium (SPIRIVA) 18 mcg capsule for inhaler Inhale 18 mcg by mouth daily. traZODone (DESYREL) 150 mg tablet Take 150 mg by mouth at bedtime daily. No current facility-administered medications for this visit. Allergies Allergen Reactions Ibuprofen RASH Triple Antibiotic [Pntup-Bqqhy-Vjpilxg-Pramoxine] RASH Naproxen Sodium NAUSEA ONLY Social History Social History Marital status: Spouse name: N/A Number of children: N/A Years of education: N/A Occupational History Disabled Social History Main Topics Smoking status: Current Every Day Smoker Packs/day: 0.25 Years: 46.00 Types: Cigarettes Smokeless tobacco: Never Used Alcohol use No Drug use: No Sexual activity: No Other Topics Concern Not on file Social History Narrative No narrative on file Review of Systems Constitutional: Negative for activity change, appetite change, chills, diaphoresis, fatigue, fever and unexpected weight change. HENT: Positive for congestion and sinus pressure. Negative for hearing loss and mouth sores. Eyes: Negative for visual disturbance. Respiratory: Positive for apnea, cough, chest tightness and shortness of breath. Cardiovascular: Positive for palpitations and leg swelling. Negative for chest pain. Gastrointestinal: Negative for abdominal pain, blood in stool, constipation, diarrhea, nausea, rectal pain and vomiting. Genitourinary: Negative for decreased urine volume, difficulty urinating, dysuria, enuresis, flank pain, frequency, genital sores, hematuria and urgency. Musculoskeletal: Positive for arthralgias, back pain and myalgias. Negative for gait problem. Skin: Negative for rash and wound. Neurological: Positive for dizziness, tremors, syncope, weakness, light- headedness, numbness and headaches. Negative for seizures. Hematological: Negative for adenopathy. Bruises/bleeds easily. Psychiatric/Behavioral: Positive for decreased concentration and dysphoric mood. The patient is nervous/anxious. Objective: albuterol (VENTOLIN HFA) 90 mcg/actuation inhaler Inhale 2 puffs by mouth into the lungs daily. Shake well before use. alendronate (FOSAMAX) 70 mg tablet Take 70 mg by mouth every 7 days. Take at least 30 minutes before breakfast with plain water. Do not lie down for 30 minutes. apixaban (ELIQUIS) 5 mg tab tablet Take [...] mg by mouth twice daily with meals. dapagliflozin 5 mg tab Take 5 mg by mouth daily. diltiazem CD (CARDIZEM CD) 240 mg capsule Take 240 mg by mouth daily. diphenoxylate/atropine (LOMOTIL) 2.5/0.025 mg tablet Take 2 tablets by mouth four times daily as needed for Diarrhea. donepezil (ARICEPT) 10 mg tablet Take 10 mg by mouth At Bedtime Daily. erenumab-aooe (AIMOVIG AUTOINJECTOR (2 PACK)) 70 mg/mL injection syringe Inject 70 mg under the skin every 30 days. ergocalciferol (VITAMIN D-2) 50,000 unit capsule Take 1 capsule by mouth every 7 days. Sundays fluticasone (FLONASE) 50 mcg/actuation nasal spray Apply 1-2 sprays to each nostril as directed daily as needed. Shake bottle gently before using. furosemide (LASIX) 20 mg tablet Take 20 mg by mouth every morning. gabapentin (NEURONTIN) 400 mg capsule Take 600 mg by mouth three times daily. levofloxacin (LEVAQUIN PO) Take by mouth daily. memantine,+, (NAMENDA) 10 mg tablet Take 10 mg by mouth daily. metoclopramide (REGLAN) 10 mg tablet Take 1 tablet before meals mirtazapine (REMERON) 45 mg tablet Take 45 mg by mouth at bedtime daily. montelukast (SINGULAIR) 10 mg tablet Take 10 mg by mouth at bedtime daily. MULTIVIT WITH CALCIUM,IRON,MIN (WOMEN'S MULTIPLE VITAMINS PO) Take 1 tablet by mouth daily. nitrofurantoin monohyd/m-cryst (MACROBID) 100 mg capsule Take one capsule by mouth every 12 hours. Take with food. nitroglycerin (NITROSTAT) 0.[address] 0.4 mg under tongue every 5 minutes as needed for Chest Pain. omeprazole DR(+) (PRILOSEC) 40 mg capsule Take one capsule by mouth twice daily before meals. other medication 1 Dose. 5L/NC home oxygen oxybutynin XL (DITROPAN XL) 10 mg tablet Take 1 tablet by mouth daily. Do not cut/ crush/ chew pantoprazole DR (PROTONIX) 40 mg tablet Take 40 mg by mouth twice daily. PREDNISONE PO Take by mouth daily. primidone (MYSOLINE) 250 mg tablet Take 250 mg by mouth twice daily. rifAXIMin (XIFAXAN) 550 mg tablet Take 550 mg by mouth every 8 hours. ropinirole (REQUIP) 2 mg tablet Take 2 mg by mouth At Bedtime Daily. sertraline (ZOLOFT) 100 mg tablet Take 100 mg by mouth daily. simvastatin (ZOCOR) 20 mg tablet Take 20 mg by mouth At Bedtime Daily. tiotropium (SPIRIVA) 18 mcg capsule for inhaler Inhale 18 mcg by mouth daily. traZODone (DESYREL) 150 mg tablet Take 150 mg by mouth at bedtime daily. Vitals: 01/28/18 0833 BP: 95/68 Pulse: 94 Weight: 76.7 kg (169 lb) Height: 160 cm (63") Body mass index is 29.94 kg/m. Physical Exam Constitutional: She is oriented to person, place, and time. She appears well- developed and well-nourished. No distress. HENT: Head: Normocephalic and atraumatic. Right Ear: External ear normal. Left Ear: External ear normal. Eyes: EOM are normal. Right eye exhibits no discharge. Left eye exhibits no discharge. Neck: Normal range of motion. No JVD present. No tracheal deviation present. Cardiovascular: Normal rate and regular rhythm. Pulmonary/Chest: Effort normal. No respiratory distress. Abdominal: Soft. She exhibits no distension. Musculoskeletal: Normal range of motion. Neurological: She is alert and oriented to person, place, and time. Skin: She is not diaphoretic. Psychiatric: She has a normal mood and affect. Her behavior is normal. Judgment and thought content normal. Assessment and Plan: Problem Neurogenic Bladder [...] PVR 215. Re-instructed on how to CIC Neurogenic bladder 62 y.o. female with h/o MS, LUTS, urinary urgency s/p urethral sling (2014), s/ p urethrolysis and sling excision on 06/13/17 and [...] XL daily -- Botox 300 U 06/16/17 Patient seen and discussed with Dr. Garcia, who directed plan of care. Raz Ansari MD PGY-1 ATTESTATION I personally performed the peters portions of the E/M visit, discussed case with resident and concur with resident documentation of history, physical exam, assessment, and treatment plan unless otherwise noted. Staff name: Balbina Garcai MD in this encounter Miscellaneous Notes * Assessment & Plan Note - Raz Ansari MD - 01/28/2018 9:10 AM CDT Associated Problem(s): Neurogenic bladder 62 y.o. female with h/o MS, LUTS, urinary urgency s/p urethral sling (2014), s/ p urethrolysis and sling excision on 06/13/17 and [...] XL daily -- Botox 300 U 06/16/17 in this encounter Plan of Treatment Date Type Specialty Care Team Description 03/16/2018 Surgery Endoscopy, Physician MANOMETRY ESOPHAGEAL 03/16/2018 Procedure Pass 03/16/2018 Hospital Endoscopy, Physician Nausea and vomiting in Encounter adult 06/16/2018 Surgery Balbina Garcia MD CYSTOURETHROSCOPY WITH [address] INJECTION FOR MS [address] [place] [address] BLADDER (BOTOX 300 UNITS) [phone] 06/16/2018 Procedure Pass 06/16/2018 [facility] Balbina Garcia MD Neurogenic bladder Encounter [address] [place] [address] [phone] as of this encounter Visit Diagnoses Diagnosis Neurogenic bladder Neurogenic bladder, NOS
--- OUTSIDE RECORDS SUMMARY | 2018-02-10 09:55 | XMS REPORT | Encounter Summary ---
Author Author [facility] Organization [facility] Address Unknown Phone Unavailable Care Team Providers Care Manager Coding Name Role Phone Apoorva Shane MD Unavailable Edgardo Torres MD Unavailable Amanda Bhandari Unavailable Montana Villasenor MD Unavailable Gilles Ness MD Unavailable Rain Tariq MD Unavailable Harika Hsu MD Unavailable Nayana Mccarty RN Unavailable Unavailable Symone Lee Unavailable Unavailable Lia Griffin MD PCP Reason for Visit * Reason Comments Order Follow Up Encounter Details Date Type Department Care Team Description 02/09/2018 Telephone [facility] Balbina Garcia MD Order Follow Up Physicians - Urology [address] Ortho and Medical MS [address] [place] [address] [address] [phone] [place] [address] Social History Tobacco Use Types [...] Telephone Encounter - Neetu Mann RN - 02/09/2018 12:[address] ADMINISTRATOR Patient called this morning and stated that she has not received her catheter supplies at this time. Called patient back and she stated that her catheters have not come in to her yet. She is aware that I will need to call and check on her order. Patient was suppose to have an order for 14Fr catheters and an order for 12Fr was sent instead. Sent message to [facility] to check on this patient's order. She is aware that I will call her back when I have more information. in this encounter Plan of Treatment Date Type Specialty Care Team Description 03/16/2018 Surgery Endoscopy, Physician MANOMETRY ESOPHAGEAL 03/16/2018 Procedure Pass 03/16/2018 [facility] Endoscopy, Physician Nausea and vomiting in Encounter adult 06/16/2018 Surgery Balbina Garcia MD CYSTOURETHROSCOPY WITH [address] INJECTION FOR MS [address] [place] [address] BLADDER (BOTOX 300 UNITS) [phone] 06/16/2018 Procedure Pass 06/16/2018 [facility] Balbina Garcia MD Neurogenic bladder Encounter [address] [place] [address] [phone] as of this encounter Visit Diagnoses Not on filein this encounter
--- OUTSIDE RECORDS SUMMARY | 2018-02-10 09:55 | XMS REPORT | Encounter Summary ---
Author Author [facility] Organization [facility] Address Unknown Phone Unavailable Care Team Providers Care Chain Maker Hand Name Role Phone Apoorva Shane MD Unavailable Edgardo Torres MD Unavailable Aamnda Bhandari Unavailable Montana Villasenor MD Unavailable Gilles Ness MD Unavailable Rain Tariq MD Unavailable Harika Hsu MD Unavailable Nayana Mccarty RN Unavailable Unavailable Symone Lee Unavailable Unavailable Lia Griffin MD PCP Reason for Visit * Reason Comments Appointment Question Encounter Details Date Type Department Care Team Description 02/03/2018 Telephone [facility] Edgardo Torres MD Appointment Question Physicians - Internal [address] [facility] Medicine [address] [place] [address] [address] [phone] [place] [address] [phone] Social History Tobacco Use Types Packs/Day Years [...] encounter Miscellaneous Notes * Telephone Encounter - Ghislaine Cox RN - 02/09/2018 1:58 PM CONE TRUCKER Attempt to return patient's call as patient has question regarding upcoming appointment in April. Only able to leave message is an appointment that was rescheduled by review of notes per patient request since patient will be out of town. Patient to call our office for any other questions. * Telephone Encounter - Ghislaine Cox RN - 02/03/2018 9:21 AM CDT Attempt to return call as patient requesting to reschedule follow-up appointment to April as patient will be out of town. Review of chart, patient has contacted scheduling and has rescheduled to April. Left patient voice message to let our office know if anything else is needed as believe patient's rescheduling request has been met. in this encounter Plan of Treatment Date Type Specialty Care Team Description 03/16/2018 Surgery Endoscopy, Physician MANOMETRY ESOPHAGEAL 03/16/2018 Procedure Pass 03/16/2018 Hospital Endoscopy, Physician Nausea and vomiting in Encounter adult 06/16/2018 Surgery Balbina Garcia MD CYSTOURETHROSCOPY WITH [address] INJECTION FOR MS [address] [place] [address] BLADDER (BOTOX 300 UNITS) [phone] 06/16/2018 Procedure Pass 06/16/2018 [facility] Balbina Garcia MD Neurogenic bladder Encounter [address] [place] [address] [phone] as of this encounter Visit Diagnoses Not on filein this encounter
--- OUTSIDE RECORDS SUMMARY | 2018-02-10 09:55 | XMS REPORT | Encounter Summary ---
Author Author [facility] Organization [facility] Address Unknown Phone Unavailable Care Team Providers Care Aqu[employer] Fitness Instructor Name Role Phone Apoorva Shane MD Unavailable Edgardo Torres MD Unavailable Amanda Bhandari Unavailable Montana Villasenor MD Unavailable Gilles Ness MD Unavailable Rain Tariq MD Unavailable Harika Hsu MD Unavailable Nayana Mccarty RN Unavailable Unavailable Symone Lee Unavailable Unavailable Lia Griffin MD PCP Reason for Visit * Reason Comments General Question Encounter Details Date Type Department Care Team Description 02/03/2018 Telephone [facility] Balbina Garcia MD General Question Physicians - Urology [address] Ortho [facility] Medical MS [address] [place] [address] [address] [facility] [phone] [place] [address] Social History Tobacco Use Types [...] * Telephone Encounter - Elly Smallwood - 02/03/2018 9:33 AM CDT Pt called looking for catheters. I told her per TURNING LATHE TENDER Dindi they should arrive tomorrow. TURNING LATHE TENDER Dindi ordered them on Friday. Pt was satisfied with this answer. Nothing else was needed. in this encounter Plan of Treatment Date Type Specialty Care Team Description 03/16/2018 Surgery Endoscopy, Physician MANOMETRY ESOPHAGEAL 03/16/2018 Procedure Pass 03/16/2018 Hospital Endoscopy, Physician Nausea and vomiting in Encounter adult 06/16/2018 Surgery Balbina Garcia MD CYSTOURETHROSCOPY WITH [address] INJECTION FOR MS [address] [place] [address] BLADDER (BOTOX 300 UNITS) [phone] 06/16/2018 Procedure Pass 06/16/2018 [facility] Balbina Garcia MD Neurogenic bladder Encounter [address] [place] [address] [phone] as of this encounter Visit Diagnoses Not on filein this encounter
--- OUTSIDE RECORDS SUMMARY | 2018-02-10 09:56 | XMS REPORT | Encounter Summary ---
Author Author [facility] Organization [facility] Address Unknown Phone Unavailable Care Team Providers Care Procedures Analyst Name Role Phone Apoorva Shane MD Unavailable Edgardo Torres MD Unavailable Amanda Bhandari Unavailable Montana Villasenor MD Unavailable Gilles Ness MD Unavailable Rain Tariq MD Unavailable Harika Hsu MD Unavailable Nayana Mccarty RN Unavailable Unavailable Symone Lee Unavailable Unavailable Lia Griffin MD PCP Reason for Visit * Reason Comments Urinary Catheter Problem Encounter Details Date Type Department Care Team Description 01/08/2018 Telephone [facility] Balbina Garcia MD Urinary Catheter Problem Physicians - Urology [address] [facility] [address] [place] [address] 1999 Pending Sale To [facility] [phone] [place] [address] Social History Tobacco Use Types [...] encounter Miscellaneous Notes * Telephone Encounter - Abena Mcdowell - 01/08/2018 9:45 AM CDT Spoke with patient and she states that she was instructed to do CIC 3 x daily after voiding on her own first. She is reporting that she is not getting any urine out when she is cathing. Would like to know if she can d\c CIC or if she needs to continue. Please call patient in this encounter Plan of Treatment Date Type Specialty Care Team Description 03/16/2018 Surgery Endoscopy, Physician MANOMETRY ESOPHAGEAL 03/16/2018 Procedure Pass 03/16/2018 Hospital Endoscopy, Physician Nausea and vomiting in Encounter adult 06/16/2018 Surgery Balbina Garcia MD CYSTOURETHROSCOPY WITH [address] INJECTION FOR [place] [address] [place] [address] BLADDER (BOTOX 300 UNITS) [phone] 06/16/2018 Procedure Pass 06/16/2018 [facility] Balbina Garcia MD Neurogenic bladder Encounter [address] [place] [address] [phone] as of this encounter Visit Diagnoses Not on filein this encounter
--- OUTSIDE RECORDS SUMMARY | 2018-02-10 09:56 | XMS REPORT | Encounter Summary ---
Author Author [facility] Organization [facility] Address Unknown Phone Unavailable Care Team Providers Care High Speed Operator Name Role Phone Apoorva Shane MD Unavailable Edgardo Torres MD Unavailable Amanda Bhandari Unavailable Montana Villasenor MD Unavailable Gilles Ness MD Unavailable Rain Tariq MD Unavailable Harika Hsu MD Unavailable Nayana Mccarty RN Unavailable Unavailable Symone Lee Unavailable Unavailable Lia Griffin MD PCP Reason for Visit * Reason Comments Results Encounter Details Date Type Department Care Team Description 01/12/2018 Telephone [facility] Amanda Bhandari ARNP Results Physicians - Internal [address] [facility] Medicine [address] [place] [address] [address] [address] [phone] [place] [address] [phone] Social History Tobacco Use Types Packs/Day Years [...] encounter Miscellaneous Notes * Telephone Encounter - Krystin Nicholson LPN - 01/15/2018 11:19 AM CDT Recieved results from [facility], labs were WNL. Sent to be scanned into chart. Left detailed VM (authorization on file) informing labs have now been received and are WNL and will call pt w/ any further recommendations once reviewed by provider. * Telephone Encounter - Ghislaine Cox RN - 01/13/2018 10:55 AM CDT 2nd message from patient asking if our office has received LFTs drawn outside of [facility]. Records have been requested and not yet received. Ordered by Amanda Bhandari NP and will forward to Krystin Nicholson LPN to see if has received today. * Telephone Encounter - Ghislaine Cox RN - 01/12/2018 3:47 PM CDT Patient calling requesting to know if our office had received LFTs from [address] [facility] in [place], [place] and have not. Our office requested results. in this encounter Plan of Treatment Date Type Specialty Care Team Description 03/16/2018 Surgery Endoscopy, Physician MANOMETRY ESOPHAGEAL 03/16/2018 Procedure Pass 03/16/2018 Hospital Endoscopy, Physician Nausea and vomiting in Encounter adult 06/16/2018 Surgery Balbina Garcia MD CYSTOURETHROSCOPY WITH [address] INJECTION FOR [place] [address] [place] [address] BLADDER (BOTOX 300 UNITS) [phone] 06/16/2018 Procedure Pass 06/16/2018 [facility] Balbina Garcia MD Neurogenic bladder Encounter [address] [place] [address] [phone] as of this encounter Visit Diagnoses Not on filein this encounter
--- OUTSIDE RECORDS SUMMARY | 2018-02-10 09:56 | XMS REPORT | Encounter Summary ---
Author Author [facility] Organization [facility] Address Unknown Phone Unavailable Care Team Providers Care Pc Analyst Name Role Phone Apoorva Shane MD Unavailable Edgardo Torres MD Unavailable Amanda Bhandari Unavailable Montana Villasenor MD Unavailable Gilles Ness MD Unavailable Rain Tariq MD Unavailable Harika Hsu MD Unavailable Nayana Mccarty RN Unavailable Unavailable Symone Lee Unavailable Unavailable Lia Griffin MD PCP Encounter Details Date Type Department Care Team Description 01/26/2018 Prep for Case [facility] Amanda Bhandari ARNP Nausea and vomiting in Physicians [address] adult (Primary Dx); Ortho and Medical MS [address] Dysphagia, unspecified [address] [place] [address] type; [address] [phone] Loose stools; [place], [place] Incontinence of feces, [phone] unspecified fecal [phone] incontinence type; Regurgitation of food Social History Tobacco Use Types Packs/Day Years [...] Physician MANOMETRY ESOPHAGEAL 03/16/2018 Procedure Pass 03/16/2018 [facility] Endoscopy, Physician Nausea and vomiting in Encounter adult 06/16/2018 Surgery Balbina Garcia MD CYSTOURETHROSCOPY WITH [address] INJECTION FOR MS [address] [place] [address] BLADDER (BOTOX 300 UNITS) [phone] 06/16/2018 Procedure Pass 06/16/2018 [facility] Balbina Garcia MD Neurogenic bladder Encounter [address] [place] [address] [phone] as of this encounter Visit Diagnoses Diagnosis Nausea and vomiting in adult - Primary Nausea with vomiting Dysphagia, unspecified type Loose stools Abnormal feces Incontinence of feces, unspecified fecal incontinence type Regurgitation of food
--- OUTSIDE RECORDS SUMMARY | 2018-02-10 09:56 | XMS REPORT | Encounter Summary ---
Author Author [facility] Organization [facility] Address Unknown Phone Unavailable Care Team Providers Care Calendar Control Clerk Blood Bank Name Role Phone Apoorva Shane MD Unavailable Edgardo Torres MD Unavailable Amanda Bhandari Unavailable Montana Villasenor MD Unavailable Gilles Ness MD Unavailable Rain Tariq MD Unavailable Harika Hsu MD Unavailable Nayana Mccarty RN Unavailable Unavailable Symone Lee Unavailable Unavailable Lia Griffin MD PCP Reason for Visit * Reason Comments Abdominal pain GERD Encounter Details Date Type Department Care Team Description 01/26/2018 Office Visit [facility] Amanda Bhandari ARNP Nausea and vomiting in Physicians - Internal [address] adult (Primary Dx); Medicine [address] Gastroparesis; [place] [address] Gastroesophageal reflux [address] [phone] [place] [address] esophagitis [phone] Social History Tobacco Use Types Packs/Day Years [...] Vital Sign Reading Time Taken Blood Pressure 117/76 01/26/2018 8:06 AM CDT Pulse 97 01/26/2018 8:06 AM CDT Temperature 37.1 C (98.8 F) 01/26/2018 8:06 AM CDT Respiratory Rate 18 01/26/2018 8:06 AM CDT Oxygen Saturation - - Inhaled Oxygen - - Concentration Weight 76.2 kg (168 lb) 01/26/2018 8:06 AM CDT Height 160 cm (5' 3") 01/26/2018 8:06 AM CDT Body Mass Index 29.76 01/26/2018 8:06 AM CDT in this encounter Functional Status [...] Patient Instructions - Krystin Nicholson LPN - 01/26/2018 8:00 AM CDT Formatting of this note may be different from the original. 1) We have ordered labs for you, please have these completed today. The lab is located on this floor of the building next to the radiology department. The lab is open from 8 AM to 5 PM through Friday. We will call you with results. 2) We have ordered an Esophageal Manometry for you and you have been provided written prep instructions for this. This test will help us find out how the muscles in your esophagus work. An Anorectal Manometry has also been ordered for you and you have been provided written prep instructions for this. This test will help us find out how the muscles in your rectum and buttocks work. We will also test your ability to feel pain or pressure in those areas. You will be contacted to schedule these procedures. If you have not heard from scheduling within 5 business days or you need to reschedule please call [phone]. 3) STOP Reglan. Continue to follow a gastroparesis diet. 4) Increase the Omeprazole to 40mg twice daily. Take one capsule 30 min before your morning and evening meals. Continue Ranitidine twice daily. Take one tablet at midday and one at bedtime. Follow up in clinic in 6-8 weeks after testing complete. If you have any questions or concerns please contact my nurse, Kyrstin, at [phone] General Instructions: To have a medication refilled: Please use the [facility] Refill request or contact your pharmacy directly to request medication refills. Please allow 72 hours. [facility] Lab is on the 1st floor. It is open from 7 am-6pm Friday-Friday and 6:30am-7pm on Mondays, and 7 am - Noon on Saturdays [facility] Lab is located on the 2nd floor and is open 8 am-5 pm Friday-Friday [facility] lab is located next to the check out desk and is open from 8 AM to 4:45 PM Friday through Friday. Radiology is on the 2nd floor of the Medical Office Building and the 2nd Floor of [facility]. Radiology Scheduling can be reached at Press 1 for MRI, press 2 for nuclear med, press 3 for breast imaging, press 4 for interventional radiology, press [address] and ultrasound. To Schedule office visits: Call [phone]. For procedure scheduling questions at the Main [facility] or [facility] please call ; for a procedure at [facility] please call [phone]. To receive appointment reminders on your cell phone: Make sure we have your cell phone number, and Text [facility] to [phone]. Support for many chronic illnesses is available through [facility]: [facility] or [phone]. For urgent questions on nights, weekends or holidays, call the Truckload Checker at [phone], and ask for the doctor web applications architect for Gastroenterology.Call [phone] for any emergencies. Gastroparesis is when food moves through the stomach more slowly than normal. Its also calleddelayed gastric emptying. How to say it [id number] Changing your diet These changes may help reduce the problem: Eat 6 smaller meals a day instead of 3 large meals. Have a few liquid meals a day instead of solid food. You may need to do this until your blood glucose levels are stable. Dont eat foods high in fat. This includes fried food, fatty meats, and high-fat dairy foods. These can slow your digestion. Dont eat foods high in insoluble fiber. This includes beans and many fruits and vegetables. These can be hard to digest. Talk with your healthcare provider or a dietitian about an eating plan that is best for you. in this encounter Progress Notes * Amanda Bhandari ARNP - 01/26/2018 8:00 AM CDT Formatting of this note may be different from the original. Subjective: History of Present Illness Nara Huizar is a 62 y.o. female. Nara is a very pleasant 62 yo [...] esophagus, gastroparesis, and Lily esophagitis. Her outside and GI workup is summarized below. When last seen by Dr. Torres in 2015 her diarrhea had failed to improve with Xifaxin or Flagyl. She was referred back to GI in 09/2017 by her surgeon/Dr. Villasenor in [place], [place]. At that time she reported a 20# weight loss over 6 months due to persistent GI symptoms related to frequent regurgitation, especially at night, as well as chronic nausea and esophageal dysphagia. She was following a gastroparesis diet without improvement. She was not taking Reglan but had tolerated this in the past. Dr. Villasenor performed an EGD on her in 02/2017 and again in 06/2017. Both times he performed esophageal dilation to 20 mm without symptom improvement. At the time of the OV the diarrhea was controlled with WelChol 2 p.o. twice daily, Xifaxan 500 mg 3 times daily long-term, and Lomotil twice daily as needed. Blood work from 10/03/17 showed normal CMP, lipase, amylase, and TSH of 2.770. CT A/P revealed mild dilation of the pancreatic duct [...] with common bile duct measuring 1.2 cm. Symptoms continued despite Reglan 5 mg qid and strict gastroparesis diet as well as pantoprazole 40 mg bid and ranitidine 300 mg bid. EUS recommended given CT findings and Reglan was increased to 10 mg tid. She presents today for follow-up office visit. EUS on 01/02/18 was unremarkable , without evidence of chronic pancreatitis, mass, or divisum. EGD on 01/02/18 also unremarkable except for retained food and fluid noted in the stomach. no evidence of esophagitis. Normal esophageal, stomach, and duodenal biopsies. Unfortunately, she continues to have significant daily nausea and dry heaves despite Reglan 10 mg 3 times daily. She denies any side effects from Reglan use. She does report following a gastroparesis diet and has a documented 17 pound weight gain since the 10/29/17 office visit. She states she is eating frequently due to boredom and anxiety. She also continues to have frequent regurgitation symptoms, day and night, immediately after liquids and solids. She is currently on omeprazole 40 mg once daily and ranitidine 300 mg twice a day. Another provider discontinue pantoprazole. She also takes baclofen 20 mg 3 times daily for chronic leg cramps. Her dysphagia is also unchanged, mid esophageal, and occurs with solids and occasionally pills. She reports increased symptoms of the past 3 months. As far for her bowel movements, frequent bowel movements is no longer controlled with WelChol 2 tablets twice daily, Xifaxan 500 mg 3 times daily, and Lomotil as needed. She is reporting 10 -15 soft bowel movements daily, sometimes incomplete and requiring straining. She does have postprandial urgency. She does have fecal incontinence once a week if the stools are loose. She denies rectal bleeding or melena. She is having more than normal lower abdominal cramping. Some improvement with a bowel movement. No associated fever or chills. Outside GI workup: Performed by Dr. [place] Villasenor in [place], [place] 02/22/15 - COLON- prep was adequate [...] - Pa/lat CXR - normal. 06/2017 - EGD- class B reflux esophagitis with mild esophageal stricture. Stricture was dilated to 20 mm. Moderate gastritis and duodenitis seen. No ulcerations. Biopsies of the duodenum were normal. Negative biopsies for H. pylori. Esophageal biopsies consistent with chronic reflux esophagitis. No fungal organisms or metaplasia noted. 09/2017 - GET- delayed gastric emptying - at 121 minutes there was still approximately 63% of the radiotracer still present within the stomach. Recent [facility] GI workup: 09/2015 - Flex sig - normal with negative random biopsies. 10/03/17 - Lab - normal CMP, lipase, [...] with common bile duct measuring 1.2 cm. 10/2017 - Stool studies -negative for C. difficile and culture. Few leukocytes seen. Patient did not complete stool for Giardia, Cryptosporidium, and fecal fat. 01/02/18 - EUS -pancreas normal without evidence of chronic pancreatitis, mass, or divisum. Pancreatic duct was 3.6 mm in the head and 2.8 mm in the body. Common bile duct was 10 mm. No stones were seen in the CBD. The ampulla appeared normal. 01/02/18 - EGD - normal appearing mucosa was noted in the esophagus, stomach, and duodenum. Retained food and fluid was noted in the stomach. Normal esophageal biopsies. Negative biopsies for celiac sprue and H. pylori. PAST MEDICAL HISTORY: 1. Status post Hill [...] colitis. Review of Systems Constitutional: Positive for appetite change, diaphoresis, fatigue and unexpected weight change. Negative for chills and fever. HENT: Positive for congestion, drooling, facial swelling, sinus pressure, tinnitus, trouble swallowing and voice change. Negative for mouth sores and sore throat. Eyes: Positive for redness and itching. Negative for pain and visual disturbance. Respiratory: Positive for cough, choking, chest tightness, shortness of breath and wheezing. Cardiovascular: Positive for palpitations and leg swelling. Negative for chest pain. Gastrointestinal: Positive for abdominal pain, constipation, diarrhea and vomiting. Negative for abdominal distention, anal bleeding, blood in stool, nausea and rectal pain. Endocrine: Positive for cold intolerance, polydipsia and polyuria. Genitourinary: Positive for enuresis. Negative for flank pain and pelvic pain. Musculoskeletal: Negative for arthralgias and back pain. Skin: Negative for rash. Neurological: Positive for dizziness, tremors, speech difficulty, light- headedness, numbness and headaches. Hematological: Negative for adenopathy. Bruises/bleeds easily. Psychiatric/Behavioral: Positive for behavioral problems, confusion, decreased concentration, dysphoric mood and sleep disturbance. The patient is nervous/ anxious. All other systems reviewed and are negative. [...] topically to affected area four times daily. omeprazole DR(+) (PRILOSEC) 40 mg capsule Take [...] mg by mouth at bedtime daily. Vitals: 01/26/18 0806 BP: 117/76 Pulse: 97 Resp: 18 Temp: 37.1 C (98.8 F) TempSrc: Oral Weight: 76.2 kg (168 lb) Height: 160 cm (63") Body mass index is 29.76 kg/m. Physical Exam Constitutional: She is oriented to person, place, and time. She appears well- developed and well-nourished. No distress. HENT: Head: Normocephalic and atraumatic. Mouth/Throat: Oropharynx is clear and moist. Eyes: Pupils are equal, round, and reactive to light. Conjunctivae are normal. Right eye exhibits no discharge. [...] There is no rebound and no guarding. mild epigastric and bilateral LQ tenderness, soft, no distention or guarding. Musculoskeletal: Normal range of motion. She [...] 1. Refactory N/V, GERD, and regurgitation over > 6 months, minimal improvement with Reglan 10 mg tid, high dose qd to bid PPI with ranitidine 300 mg bid. She si also taking baclofen 20 mg tid (for leg cramps) with no improvement. GERD symptoms have failed to respond to Prevacid, Dexilant, Nexium, and omeprazole in the past. EGD 12/2017 with no esophagitis. 2. Dysphagia. Reports solid and liquid lower esophageal dysphagia. No improvement with esophageal dilation by outside provider in 02/2017 and 06/2017 when mild esophageal stricture reported at that time. [facility] EGD in 12/2017 without evidence of esophagitis or esophageal stricture. Biopsies negative for EOE. 3. Weight loss, resolved for now. Has gained 17# since 10/2017 OV. At 09/2017 reported 20 pounds over the previous 6 months due to above symptoms. Recent TSH normal. CT A/P 10/29/17 with mild dilation of the pancreatic duct within the head and proximal body but no clear mass or enlarged retroperitoneal lymph nodes and mild intrahepatic and moderate extrahepatic biliary ductal dilation with common bile duct measuring 1.2 cm. EUS 12/2017 unremarkable. 4. Chronic diarrhea with history of small intestinal bacterial overgrowth. Has taken Tincture of opium and octreotide in the past. Negative biopsies for microscopic colitis in 2016. Symptoms not currently well controlled with WelChol 2 p.o. twice daily, Xifaxan 550 mg 3 times daily long-term, and Lomotil as needed. Negative stool studies for C. diff and culture 10/2017. She is now reporting frequent BMs, soft, with intermittent fecal incontinence. 5. History of Celaya's. Most recent EGD 12/2017, no evidence of esophagitis. 6. Long history of smoking. Outside CXR 03/2017 WNL and patient reports normal CXR also 1 month ago. 7. History of A-fib, currently on Eliquis. 8. History of adenomatous colon polyps. Outside colonoscopy 2014 when single adenomatous polyp removed. [facility] flexible sigmoidoscopy in 09/2005 unremarkable. Plan: 1. We will check a.m. cortisol given her chronic nausea, vomiting, diarrhea to evaluate for adrenal insufficiency. 2. She was reminded the importance of a strict gastroparesis diet including small/frequent meals since she is not seeing any benefit from Reglan will have her discontinue this. 3. For her reflux symptoms encouraged antireflux precautions and will increase omeprazole 40 mg to twice daily, 30 minutes before morning and evening meals. We will also have her continue ranitidine 300 mg, midday and at bedtime. 4. To further evaluate her dysphagia symptoms will order esophageal manometry to evaluate for and esophageal motility disorder. 5. Given her issues with frequent/incomplete bowel movements will recommend anal rectal manometry to evaluate for pelvic floor dyssynergy. In the meantime, she will continue WelChol, Xifaxan, and Lomotil as needed. 6. She will return to clinic for follow-up in 6-8 weeks, call as needed in the meantime. The plan of care was discussed with Dr. Torres who also visited with the patient. Patient was advised of the plan and voiced agreement and understanding. Total face to face time spent with patient: 30 minutes with >50% of that time spent counseling the patient on medications, prior study results related to symptoms, differential diagnosis, and options regarding the plan of care. Thank you for allowing me to see your patient in the office today. Please feel free to contact me if you have any questions or concerns. This note was in part completed with [employer], a voice to text dictation system. Some errors may have occured and persist despite my best efforts to edit this document to eliminate dictation/translationrelated errors. If you have questions/concerns, please contact me for clarification in this encounter Plan of Treatment Date Type Specialty Care Team Description 03/16/2018 Surgery Endoscopy, Physician MANOMETRY ESOPHAGEAL 03/16/2018 Procedure Pass 03/16/2018 Hospital Endoscopy, Physician Nausea and vomiting in Encounter adult 06/16/2018 Surgery Balbina Garcia MD CYSTOURETHROSCOPY WITH [address] INJECTION FOR [address] [place] [address] BLADDER (BOTOX 300 UNITS) [phone] 06/16/2018 Procedure Pass 06/16/2018 [facility] Balbina Garcia MD Neurogenic bladder Encounter [address] [place] [address] as of this encounter Results * CORTISOL,RANDOM (01/26/2018 9:40 AM) Cortisol, Random 6.5 5.0 - 20.0 MCG/DL [facility] Specimen Blood Performing Organization Address City/State/Zipcode Phone Number MAIN LAB [address] [place] [address] in this encounter Visit Diagnoses Diagnosis Nausea and vomiting in adult - Primary Nausea with vomiting Gastroparesis Gastroesophageal reflux disease without esophagitis Esophageal reflux
--- OUTSIDE RECORDS SUMMARY | 2018-02-10 09:56 | XMS REPORT | Encounter Summary ---
Author Author [facility] Organization [facility] Address Unknown Phone Unavailable Care Team Providers Care Audio Director Name Role Phone Apoorva Shane MD Unavailable Edgardo Torres MD Unavailable Amanda Bhandari Unavailable Montana Villasenor MD Unavailable Gilles Ness MD Unavailable Rain Tariq MD Unavailable Harika Hsu MD Unavailable Nayana Mccarty RN Unavailable Unavailable Symone Lee Unavailable Unavailable Lia Griffin MD PCP Encounter Details Date Type Department Care Team Description 01/12/2018 Orders Only [facility] Jean Pierre Fregoso PA-C Urinary tract infection Physicians - Urology [address] without hematuria, [place] [address] unspecified (Primary Dx) Pavilion Level 2A [phone] [place] [address] Social History Tobacco Use Types [...] Surgery Balbina Garcia MD CYSTOURETHROSCOPY WITH [address] INJECTION FOR [place] [address] [place] [address] BLADDER (BOTOX 300 UNITS) [phone] 06/16/2018 Procedure Pass 06/16/2018 [facility] Balbina Garcia MD Neurogenic bladder Encounter [address] [place] [address] [phone] as of this encounter Visit Diagnoses Diagnosis Urinary tract infection without hematuria, site unspecified - Primary
--- OUTSIDE RECORDS SUMMARY | 2018-02-10 09:56 | XMS REPORT | Encounter Summary ---
Author Author [facility] Organization [facility] Address Unknown Phone Unavailable Care Team Providers Care Qc Analyst Name Role Phone Apoorva Shane MD Unavailable Edgardo Torres MD Unavailable Amanda Bhandari Unavailable Montana Villasenor MD Unavailable Gilles Ness MD Unavailable Rain Tariq MD Unavailable Harika Hsu MD Unavailable Nayana Mccarty RN Unavailable Unavailable Symone Lee Unavailable Unavailable Lia Griffin MD PCP Reason for Visit * Reason Comments Urinary Problem Encounter Details Date Type Department Care Team Description 01/09/2018 Telephone [facility] Balbina Garcia MD Urinary Problem Physicians - Urology [address] [facility] Ortho and Medical [place] [address] Pavilion Level 2A [place] [address] [address] [facility] [phone] [place] [address] Social History Tobacco Use Types [...] encounter Miscellaneous Notes * Telephone Encounter - Miracle Crowe RN - 01/09/2018 3:59 PM CDT Spoke with Jean Pierre, see note. Called [facility] in [place], spoke with Joseph in the lab and faxed order to: [phone] in this encounter Plan of Treatment Date Type Specialty Care Team Description 03/16/2018 Surgery Endoscopy, Physician MANOMETRY ESOPHAGEAL 03/16/2018 Procedure Pass 03/16/2018 [facility] Endoscopy, Physician Nausea and vomiting in Encounter adult 06/16/2018 Surgery Balbina Garcia MD CYSTOURETHROSCOPY WITH [address] INJECTION FOR [place] [address] [place] [address] BLADDER (BOTOX 300 UNITS) [phone] 06/16/2018 Procedure Pass 06/16/2018 [facility] Balbina Garcia MD Neurogenic bladder Encounter [address] [place] [address] [phone] as of this encounter Visit Diagnoses Not on filein this encounter
--- OUTSIDE RECORDS SUMMARY | 2018-02-10 09:56 | XMS REPORT | Encounter Summary ---
Author Author [facility] Organization [facility] Address Unknown Phone Unavailable Care Team Providers Care Multiplex Operator Name Role Phone Apoorva Shane MD Unavailable Edgardo Torres MD Unavailable Amanda Bhandari Unavailable Montana Villasenor MD Unavailable Gilles Ness MD Unavailable Rain Tariq MD Unavailable Harika Hsu MD Unavailable Nayana Mccarty RN Unavailable Unavailable Symone Lee Unavailable Unavailable Lia Griffin MD PCP Encounter Details Date Type Department Care Team Description 01/16/2018 Orders Only [facility] Amanda Bhandari ARNP Dilation of common bile Physicians [address] duct Ortho and Medical [address] Level [address] [place] [address] [phone] [place] [address] Social History Tobacco Use Types [...] Surgery Balbina Garcia MD CYSTOURETHROSCOPY WITH [address] INJECTION FOR [place] [address] [place] [address] BLADDER (BOTOX 300 UNITS) [phone] 06/16/2018 Procedure Pass 06/16/2018 [facility] Balbina Garcia MD Neurogenic bladder Encounter [address] [place] [address] [phone] as of this encounter Procedures Procedure Name Priority Date/Time Associated Diagnosis Comments LIVER FUNCTION PANEL Routine 01/09/2018 Dilation of common bile Results for this 12:00 AM CDT duct procedure are in the results section. in this encounter Results * LIVER FUNCTION PANEL (01/09/2018) Total Bilirubin 0.2 OTHER OUTSIDE LAB Bilirubin, Direct <0.1 OTHER OUTSIDE LAB Albumin 4.3 OTHER OUTSIDE LAB Alk Phosphatase 100 OTHER OUTSIDE LAB AST (SGOT) 27 OTHER OUTSIDE LAB ALT (SGPT) 25 OTHER OUTSIDE LAB Total Protein 7.2 OTHER OUTSIDE LAB Specimen Blood - Blood Narrative Performed At Performing Organization Address City/State/Zipcode Phone Number OTHER OUTSIDE LAB in this encounter Visit Diagnoses Diagnosis Dilation of common bile duct
--- OUTSIDE RECORDS SUMMARY | 2018-02-10 09:56 | XMS REPORT | Encounter Summary ---
Author Author [facility] Organization [facility] Address Unknown Phone Unavailable Care Team Providers Care Pipeline Integrity Engineer Name Role Phone Apoorva Shane MD Unavailable Edgardo Torres MD Unavailable Amanda Bhandari Unavailable Montana Villasenor MD Unavailable Gilles Ness MD Unavailable Rain Tariq MD Unavailable Harika Hsu MD Unavailable Naayna Mccarty RN Unavailable Unavailable Symone Lee Unavailable Unavailable Lia Griffin MD PCP Reason for Visit * Reason Comments Follow-up Phone Call Encounter Details Date Type Department Care Team Description 01/09/2018 Telephone [facility] Jean Pierre Fregoso PA-C Follow- up Phone Call Physicians - Urology [address] [facility] [place] [address] Pavilion Level 2A [phone] [place] [address] Social History Tobacco Use Types [...] encounter Miscellaneous Notes * Telephone Encounter - Bello EmiliaJERMAIN day - 01/12/2018 3:02 PM CDT Called and advised patient that she does have UTI. Macrobid BID X 7 days sent to pharmacy. Patient will keep follow up. Returned patient's call. Advised at this time we have not received UA culture results. Patient verified that urine sample left at [facility] in [place], [place]. Contacted [facility] ([phone]) and spoke with medical records. They have results and will fax results now. * Telephone Encounter - Jean Pierre Fregoso PA-C - 01/09/2018 3:44 PM CDT Patient called reporting increased urgency and urinary incontinence times 2 days. s/p cystoscopy Botox injection-300 units 12/16/2017 She called and spoke with BELINDA Rausch She reports she has been performing self intermittent catheterization however no output She reports she has performed self catheterization in the past without difficulty and did have output She reports increased incontinence, denies dysuria, hematuria, fever chills, abdominal distention. Reports bowel movements-diarrhea secondary to irritable bowel syndrome, diabetes is being well managed at this time. She is unaware of any triggering event or dietary irritants that could contribute. She is taking Lasix. She reports a history of recurrent urinary tract infections, however reviewed urine cultures. Noted in her chart urine cultures have always been negative. Advised we would like to evaluate her to make sure she is emptying her bladder. She lives in [facility] and does not have transportation to [place]. Recommended urine culture-we will fax urine culture order to [facility] in [place], [place]. Will await antibiotics until reviewing culture results. Advised if fever chills, abdominal pain, unable to urinate proceed to the emergency room for further evaluation. Offered an appointment for next week as well, she deferred. She plans to keep her follow-up plan with Dr Garcia January 28, 2018. I will forward to Huan to help follow-up on urine culture results in this encounter Plan of Treatment Date Type Specialty Care Team Description 03/16/2018 Surgery Endoscopy, Physician MANOMETRY ESOPHAGEAL 03/16/2018 Procedure Pass 03/16/2018 Hospital Endoscopy, Physician Nausea and vomiting in Encounter adult 06/16/2018 Surgery Balbina Garcia MD CYSTOURETHROSCOPY WITH [address] INJECTION FOR [place] [address] [place] [address] BLADDER (BOTOX 300 UNITS) [phone] 06/16/2018 Procedure Pass 06/16/2018 [facility] Balbina Garcia MD Neurogenic bladder Encounter [address] [place] [address] [phone] Name Priority Associated Diagnoses Order Schedule CULTURE-URINE W/SENSITIVITY Routine Urinary incontinence, Expected: 08/2017, unspecified type Expires: 01/09/2019 as of this encounter Visit Diagnoses Diagnosis Urinary incontinence, unspecified type - Primary
--- OUTSIDE RECORDS SUMMARY | 2018-02-10 09:56 | XMS REPORT | Encounter Summary ---
Author Author [facility] Organization [facility] Address Unknown Phone Unavailable Care Team Providers Care Hotel Maintenance Engineer Name Role Phone Apoorva Shane MD Unavailable Edgardo Torres MD Unavailable Amanda Bhandari Unavailable Montana Villasenor MD Unavailable Gilles Ness MD Unavailable Rain Tariq MD Unavailable Harika Hsu MD Unavailable Nayana Mccarty RN Unavailable Unavailable Symone Lee Unavailable Unavailable Lia Griffin MD PCP Encounter Details Date Type Department Care Team Description 01/26/2018 [facility] Amanda Bhandari ARNP Encounter [facility] fl [address] MS [facility] [place] [address] [place] [address] Social History Tobacco Use Types [...] by mouth every mg tablet 7 days. Take at least 30 minutes before breakfast with plain water. Do not lie down for 30 minutes. apixaban (ELIQUIS) 5 mg Take 5 mg [...] 625 mg tablet twice daily with meals. dapagliflozin 5 mg tab Take 5 mg by mouth daily. diltiazem CD (CARDIZEM Take 240 mg by mouth CD) 240 mg capsule daily. diphenoxylate/atropine Take 2 tablets by mouth (LOMOTIL) 2.5/0.025 mg four times daily as tablet needed for Diarrhea. donepezil (ARICEPT) 10 mg Take 10 mg by mouth At tablet Bedtime Daily. erenumab-aooe (AIMOVIG Inject 70 mg under the AUTOINJECTOR (2 PACK)) 70 skin every 30 days. mg/mL injection syringe ergocalciferol (VITAMIN Take 1 capsule by mouth D-2) 50,000 unit capsule every 7 days. Sundays fluticasone (FLONASE) 50 Apply 1-2 sprays to each mcg/actuation nasal nostril as directed daily sprayIndications: as needed. Shake bottle Allergic Rhinitis gently before using. furosemide (LASIX) 20 mg Take 20 mg by mouth every tablet morning. gabapentin (NEURONTIN) Take 600 mg by mouth [...] mouth CALCIUM,IRON,MIN (WOMEN'S daily. MULTIPLE VITAMINS PO) nitrofurantoin Take one capsule by mouth 14 capsule 0 01/12/2018 monohyd/m-cryst every 12 hours. Take with (MACROBID) 100 mg food. capsuleIndications: Urinary tract infection without hematuria, site unspecified nitroglycerin (NITROSTAT) Place 0.4 mg under tongue 0.4 mg tablet every 5 minutes as needed for Chest Pain. omeprazole DR(+) Take one capsule by mouth 60 capsule 2 01/26/2018 (PRILOSEC) 40 mg capsule twice daily before meals. other medication 1 Dose. 5L/NC home oxygen oxybutynin XL (DITROPAN Take 1 tablet by mouth 90 tablet 3 07/10/2017 XL) 10 mg daily. Do not cut/ crush/ tabletIndications: chew Urinary incontinence, unspecified type pantoprazole DR Take 40 mg by mouth twice (PROTONIX) 40 mg tablet daily. primidone (MYSOLINE) 250 Take 250 mg by mouth mg tablet twice daily. rifAXIMin (XIFAXAN) 550 Take 550 mg by mouth mg tablet every 8 hours. ropinirole (REQUIP) 2 mg Take 2 mg by mouth At tablet Bedtime Daily. sertraline (ZOLOFT) 100 Take 100 mg by mouth mg tablet daily. simvastatin (ZOCOR) 20 mg Take 20 mg by mouth At tablet Bedtime Daily. tiotropium (SPIRIVA) 18 Inhale 18 mcg by mouth mcg capsule for inhaler daily. traZODone (DESYREL) 150 Take 150 mg by mouth at mg tablet bedtime daily. nystatin (NYSTOP) 100,000 Apply topically to 30 g 0 07/09/2017 unit/g topical affected area four times powderIndications: Yeast daily. dermatitis as of this encounter Plan of Treatment Date Type Specialty Care Team Description 03/16/2018 Surgery Endoscopy, Physician MANOMETRY ESOPHAGEAL 03/16/2018 Procedure Pass 03/16/2018 Hospital Endoscopy, Physician Nausea and vomiting in Encounter adult 06/16/2018 Surgery Balbina Garcia MD CYSTOURETHROSCOPY WITH [address] INJECTION FOR [address] [place] [address] BLADDER (BOTOX 300 UNITS) [phone] 06/16/2018 Procedure Pass 06/16/2018 [facility] Balbina Garcia MD Neurogenic bladder Encounter [address] [place] [address] as of this encounter Procedures Procedure Name Priority Date/Time Associated Diagnosis Comments CORTISOL,RANDOM Routine 01/26/2018 Nausea and vomiting in Results for this 9:40 AM CDT adult procedure are in the results section. in this encounter Results * CORTISOL,RANDOM (01/26/2018 9:40 AM) Cortisol, Random 6.5 5.0 - 20.0 MCG/DL [facility] Specimen Blood Performing Organization Address City/State/Zipcode Phone Number MAIN LAB [address] [place] [address] in this encounter Visit Diagnoses Diagnosis Nausea and vomiting in adult Nausea with vomiting
[2018-02-10] MEDS ORDERED: LACTATED RINGERS 1,000 ML IV ONE (09:57)
--- OUTSIDE RECORDS SUMMARY | 2018-02-10 09:57 | XMS REPORT | Encounter Summary ---
Author Author [facility] Organization [facility] Address Unknown Phone Unavailable Care Team Providers Care Finishing Tunnel Operator Name Role Phone Apoorva Shane MD Unavailable Edgardo Torres MD Unavailable Amanda Bhandari Unavailable Montana Villasenor MD Unavailable Gilles Ness MD Unavailable Rain Tariq MD Unavailable Harika Hsu MD Unavailable Nayana Mccarty RN Unavailable Unavailable Symone Lee Unavailable Unavailable Lia Griffin MD PCP Reason for Visit * Auth/Cert Status Reason Specialty Diagnoses / Referred By Referred To Procedures Contact Contact Diagnoses Weight loss Bile duct abnormality Nausea and vomiting, intractability of vomiting not specified, unspecified vomiting type Weight loss [R63.4] Bile duct abnormality [K83.9] Nausea and vomiting, intractability of vomiting not specified, unspecified vomiting type [R11.2] P rocedures ESOPHAGOGASTRODU ODENOSCOPY ENDOSCOPIC ULTRASOUND Encounter Details Date Type Department Care Team Description 01/02/2018 Surgery Gastrointenstinal Benito Albrecht MD ESOPHAGOGASTRODUODENOSCOP Endoscopy [address] ENDOSCOPIC ULTRASOUND [address] [place] [address] [place] [address] [phone] Social History Tobacco Use Types Packs/Day Years Used Date Current Every Day Smoker Cigarettes 0.25 46 Smokeless Tobacco: Never Used Alcohol Use Drinks/Week oz/Week Comments No 0 Standard 0.0 drinks or equivalent Sex Assigned at Date Recorded Not on file as of this encounter Last Filed Vital Signs Vital Sign Reading Time Taken Blood Pressure 111/69 01/02/2018 10:42 AM CDT Pulse 93 01/02/2018 10:42 AM CDT Temperature 36.5 C (97.7 F) 01/02/2018 10:33 AM CDT Respiratory Rate - - Oxygen Saturation 98% 01/02/2018 10:42 AM CDT Inhaled Oxygen - - Concentration Weight 75.3 kg (166 lb) 01/02/2018 8:22 AM CDT Height 160 cm (5' 3") 01/02/2018 8:22 AM CDT Body Mass Index 29.41 01/02/2018 8:22 AM CDT in this encounter Functional Status [...] as of this encounter Discharge Instructions * Discharge Instr - Education - Randa Kelly RN - 01/02/2018 11:38 AM CDT EGD/Upper EUS/ERCP/Antegrade Enteroscopy Post Upper Endoscopy Instructions -Nothing to eat or drink for 1.5 hours after your procedure if you have had the numbing gargle or spray. Start with small sips of water at . If tolerated well, you may advance your diet as tolerated or directed by your physician. -You may have a sore throat after the procedure for 2-3 days. Try sucrets or lozenges to help ease the pain. If it continues please contact us. -If you feel feverish, have a temperature of 101 degrees or higher, persistent nausea and vomiting, abdominal pain or dark stools; please notify your nurse or GI physician. -You may have abdominal cramping following the procedure this can be relieved by belching or passing air. -If you have redness or swelling at the IV site, place a warm, wet washcloth over the affected areas for 15 minutes, 3-4 times a day until the redness subsides. If symptoms continue for 2-3 days, contact your regular physician. - If you have bleeding from your mouth, over 2 tablespoons and increasing, please notify your physician. A small amount of bleeding is normal if a biopsy or polyps were taken. If you are vomiting blood you need to seek immediate medical attention. - You may resume all your routine medications, if medications need to be held your physician and/or nurse will notify you post procedure. SPECIFIC INSTRUCTIONS OUTPATIENTS: A. Because of sedation and lack of coordination, UNTIL TOMORROW, DO NOT: 1. Operate any motorized vehicle - this includes driving. 2. Sign any legal documents or conduct important business matters. 3. Use any dangerous machinery (chain saw, lawnmower, etc.). 4. Drink any alcoholic beverages. Should you have any questions or concerns after your procedure please call M-F 8am-5:00 pm. After 5:00 pm, holidays or weekends call [phone] and ask for the GI Doctor song plugger. in this encounter Medications at Time of [...] mouth twice (PROTONIX) 40 mg tablet daily. rifAXIMin (XIFAXAN) 550 Take 550 mg [...] by mouth at mg tablet bedtime daily. nitrofurantoin Take one capsule by mouth 10 capsule 0 12/29/2017 monohyd/m-cryst every 12 hours for 5 (MACROBID) 100 mg capsule days. Take with food. nystatin (NYSTOP) 100,000 Apply topically to 30 g 0 07/09/2017 unit/g topical affected area four times powderIndications: Yeast daily. dermatitis ranitidine(+) (ZANTAC) Take one tablet by mouth 60 tablet 3 201701/06/2018 300 mg tablet midday and one at bedtime. as of this encounter H&P Notes * Leigha Rojas MD - 01/02/2018 9:14 AM CDT Formatting of this note may be different from the original. Pre Procedure History and Physical/Sedation Plan Name:Nara Huizar :1955 Age: 62 y.o. Date of Service: 01/02/18 Date of Procedure: 01/02/2018 Planned Procedure(s): GI: EGD and EUS Sedation/Medication Plan: MAC (Monitored Anesthesia Care) Discussion/Reviews: Physician has discussed risks and alternatives of this type of sedation and above planned procedures with patient Chief Complaint: Due to weight loss and persistent N/V with move forward with EGD/EUS. History of Present Illness: Nara Huizar is a 62 y.o. female as above Previous Anesthetic/Sedation History: Yers Past Medical History: Diagnosis Date Acid reflux controlled by protonix Afib ([facility]) Alzheimer disease 2005 Anxiety disorder Arthritis Asthma Colon polyps COPD (chronic obstructive pulmonary disease) ([facility]) Depression DM (diabetes mellitus) ([facility]) last A1C 5 Dyslipidemia Gastroparesis Generalized headaches Heart disease Hyperlipemia Irritable bowel disease Irritable bowel syndrome with diarrhea On supplemental oxygen therapy 3L/NC per day, 5L/NC per night Stroke ([facility]) most recent 2014 6 total strokes, right facial drooping, 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 performed by Edgardo Torres MD at ENDO/GI [place] SIGMOIDOSCOPY FLX W/BIOPSY SINGLE/MULTIPLE 09/26/2015 SIGMOIDOSCOPY BIOPSY performed by Edgardo Torres MD at ENDO/GI HX CARPAL TUNNEL RELEASE Bilateral 2017 and "nerve damage" repair per elbows [place] RMVL/REVJ SLING STRESS INCONTINENCE N/A 06/13/2017 URETHROLYSIS, INCISION OF URETHRAL SLING, CYSTOSCOPY performed by Balbina Garcia MD at Main OR/Periop KNEE SURGERY 07/16/2017 ELBOW SURGERY 09/08/2017 [place] CYSTOURETHROSCOPY INJ CHEMODENERVATION BLADDER N/A 12/16/2017 CYSTOSCOPY, INJECTION BOTOX (300 UNITS) performed by Balbina Garcia MD at Main OR/Periop ABLATION OF DYSRHYTHMIC FOCUS ? 2015 or 2016 done at [facility] EPIDURAL BLOCK HX CERVICAL FUSION 2004 to 2014 has had a total of 4 revisions per patient HX HEART CATHETERIZATION 2012 and 2014 Pertinent medical/surgical history reviewed Pertinent family history reviewed Social History Substance Use Topics Smoking status: Current Every Day Smoker Packs/day: 0.25 Years: 46.00 Types: Cigarettes Smokeless tobacco: Never Used Alcohol use No History Drug Use No Allergies: Ibuprofen; Triple antibiotic [qxdpt-qubgs-fjhcvvl-pramoxine]; and Naproxen sodium Medications No current facility-administered medications for this encounter. Review of Systems: A 14 point review of systems was negative except for: HPI Physical Exam: Temp: 36.8 C (98.2 F) (01/02 822) Pulse: 83 (01/02 822) Respirations: 13 PER MINUTE (01/02 822) BP: 118/74 (01/02 822) General appearance: alert, cooperative and no distress Head: Normocephalic, atraumatic Eyes: No scleral icterus Oropharynx: No erythema, ulcers Neck: supple Lungs: clear to auscultation bilaterally Heart: regular rate and rhythm, S1, S2 normal, no murmur, click, rub or gallop Abdomen: Soft, non-tender, non- distended, no masses palpable, no organomegaly, BS+ve Neurologic: No focal deficits Skin: no obvious rashes Musculoskeletal: No obvious joint inflammation Extremities: No pedal edema noted @ Airway: per anesthesia Anesthesia Classification: Per Anesthesia NPO Status: Yes Status: N/A Lab/Radiology/Other Diagnostic Tests Labs: Hematology: Lab Results Component Value Date HGB 13.7 05/15/2017 HCT 39.9 05/15/2017 PLTCT 249 05/15/2017 WBC 8.1 05/15/2017 NEUT 63 05/15/2017 ANC 5.20 05/15/2017 ALC 1.90 05/15/2017 RBC 4.62 05/15/2017 LATISHA 9 05/15/2017 AMC 0.70 05/15/2017 EOSA 3 05/15/2017 ABC 0.10 05/15/2017 MCV 86.3 05/15/2017 MCH 29.7 05/15/2017 MCHC 34.4 05/15/2017 MPV 8.6 05/15/2017 RDW 14.5 05/15/2017 , Coagulation: Lab Results Component Value Date PTT 29.9 05/28/2017 INR 1.0 05/28/2017 and General Chemistry: Lab Results Component Value Date NA 142 10/03/2017 K 4.2 10/03/2017 CL 108 10/03/2017 CO2 28 10/03/2017 GAP 6 10/03/2017 BUN 10 10/03/2017 CR 0.5 11/13/2017 CR 0.65 10/03/2017 GLU 102 10/03/2017 CA 9.6 10/03/2017 ALBUMIN 4.1 10/03/2017 MG 1.7 05/15/2017 TOTBILI 0.3 10/03/2017 Leigha Rojas MD Pager in this encounter Plan of Treatment Date Type Specialty Care Team Description 03/16/2018 Surgery Endoscopy, Physician MANOMETRY ESOPHAGEAL 03/16/2018 Procedure Pass 03/16/2018 Hospital Endoscopy, Physician Nausea and vomiting in Encounter adult 06/16/2018 Surgery Balbina Garcia MD CYSTOURETHROSCOPY WITH [address]JECTION [address] [place] [address] BLADDER (BOTOX 300 UNITS) [phone] 06/16/2018 Procedure Pass 06/16/2018 [facility] Balbina Garcia MD Neurogenic bladder Encounter [address] [place], [place] [id number] Name Priority Associated Diagnoses Order Schedule SURGICAL PATHOLOGY Routine Weight loss ONCE for 1 Occurrences Bile duct abnormality starting 01/02/2018 Nausea and vomiting, intractability of vomiting not specified, unspecified vomiting type as of this encounter Procedures Procedure Name Priority Date/Time Associated Diagnosis Comments TELEMETRY STRIPS-SCAN 01/05/2018 Results for this 2:24 [...] for 01/02/18 procedure 0930 11/05/2017 1015 (MF) ESOPHAGOGASTRODUODENOSCOP 01/02/2018 Weight loss Y 9:30 AM CDT Special Needs 3 day - Reminder Call - spoke with pt., 12/30/17 @ 0937 (se)1st call made. Pt scheduled for 01/02/18 procedure 0930 11/05/2017 1015 (MF) ESOPHAGOGASTRODUODENOSCOP 01/02/2018 Weight loss [...] results section. in this encounter Results * TELEMETRY STRIPS-SCAN (01/05/2018 2:24 PM) Narrative Performed At Ordered by an unspecified provider. * SURGICAL PATHOLOGY (01/02/2018 12:24 PM) PATHOLOGY REPORT [email or web address] Department of Pathology and Laboratory Medicine [address] [place] [address] Surgical Pathology Office:[phone] :[phone] SURGICAL PATHOLOGY REPORT NAME: NARA HUIZAR JO SURG PATH #: [id number] MR #: [id number] SPECIMEN CLASS: SR BILLING #: [id number] ALT ID #:LOCATION: GIEND DATE OF PROCEDURE: 01/02/2018 AGE:62 SEX: F [...] specimen is entirely submitted in cassette D1.(lmt) lt/01/02/2018 Performing Organization Address City/State/Zipcode Phone Number [facility] RESULTS * ENDOSCOPIC ULTRASOUND REPORT (01/02/2018 10:05 AM) Provation Report Patient Name: Bhupendra HIDALGO OTHER RESULTS Procedure Date: 01/02/2018 10:05 AM CSN: [id number] Date of : 1955 Gender: Female Attending Physician: Benito Albrecht MD Procedure: Upper EUS Indications: Epigastric abdominal pain, Weight loss Providers: Benito Albrecht MD (Doctor), Anna Vasques RN (Nurse), Elida Fernandez Automotive Internet Sales Manager (Automotive Internet Sales Manager) Referring Physician: Amanda Ortiz, Edgardo Torres MD [...] 58 seconds Procedure Code(s): --- Professional --- 69743, Esophagogastroduodenoscopy, flexible, transoral; with endoscopic ultrasound examination limited to the esophagus, stomach or duodenum, and adjacent structures 77969, 59, Esophagogastroduodenoscopy, flexible, transoral; with biopsy, single or multiple CPT copyright 2016 [employer]. All rights reserved. The codes documented in this report are preliminary and upon manager contact review may be revised to meet current compliance requirements. Attending Participation: I personally performed the entire procedure. Benito Albrecht MD 01/02/2018 10:30:16 AM The attending physician has electronically signed and finalized this document. Number of Addenda: 0 Note Initiated On: 01/02/2018 10:05 AM Performing Organization Address City/[facility] Phone Number [facility] OTHER RESULTS * CBC (01/02/2018 9:00 AM) [...] MAIN LAB Specimen Blood Performing Organization Address City/[facility]/Zipcode Phone Number MAIN LAB [address] [place] [address] * BASIC METABOLIC PANEL (01/02/2018 8:50 AM) [...] Blood Performing Organization Address City/State/Zipcode Phone Number [facility] [address] [phone] * POC GLUCOSE (01/02/2018 8:40 AM) Glucose, POC 106 (H) 70 - 100 MG/DL MAIN LAB Performing Organization Address City/[facility]/Zipcode Phone Number [facility] [address] [place] [address] in this encounter Visit Diagnoses Diagnosis Weight loss Loss of weight Bile duct abnormality Unspecified disorder of biliary tract Nausea and vomiting, intractability of vomiting not specified, unspecified vomiting type Admitting Diagnoses Diagnosis Weight loss - Weight loss [R63.4] Loss of weight Bile duct abnormality - Bile duct abnormality [K83.9] Unspecified disorder of biliary tract Nausea and vomiting, intractability of vomiting not specified, unspecified vomiting type - Nausea and vomiting, intractability of vomiting not specified, unspecified vomiting type [R11.2] Administered Medications Medication Order MAR Action Action Date Dose Rate Site fentaNYL citrate PF (SUBLIMAZE) Given 01/02/2018 50 mcg injection 50 mcg 10:46 CDT 50 mcg, Intravenous, EVERY 5 MIN PRN, Starting Fri01/02/18 at 1040, Until Fri01/02/18 at 1518, Pain Injectable, For Pain Score 7-10, Maximum total dose of 200 mcg Hold for RR < 10 lactated ringers infusion Given - 01/02/2018 1,000 mL 20 mL/hr 1,000 mL, 1,000 mL, Intravenous, at 20 Bag 08:56 CDT mL/hr, ONCE, 1 dose, Fri01/02/18 at 0845, Pre-Op midazolam (VERSED) injection 1-2 mg Given 01/02/2018 1 mg 1-2 mg, Intravenous, ONCE, 1 dose, Fri 10:02 CDT 01/02/18 at 0945 oxyCODONE (ROXICODONE, OXY-IR) tablet 5-10 mg 5-10 mg, Oral, ONCE PRN, 1 dose, Starting Fri01/02/18 at 1040, Until Fri01/02/18 at 1518, Pain PO, For Pain Score <4, PACU (only) promethazine (PHENERGAN) injection 6.25 mg 6.25 mg, Intravenous, EVERY 10 MIN PRN, Starting Fri01/02/18 at 1040, Until Fri01/02/18 at 1518, Other..., nausea/vomiting, First line agent. Give in freely running IV and dilute in 10mL 0.9% sodium chloride. May repeat to total dose of 25 mg from all routes ordered PRN, if no relief in 15 minutes then notify anesthesia physician. PROTECT FROM LIGHT For IV Administration: a. Admin. each dose slowly over at least 5 min. Use lowest effective dose. b. Admin. through a large-bore vein (central venous site preferably). AVOID HAND OR WRIST VEINS UNLESS NO OTHER ALTERNATIVES ARE AVAILABLE. Do NOT administer intra-arterially. c. Check patency of site before admin. Inspect site around catheter tip and extremity for swelling, blanching, bleb formation, stretched and firm skin or coolness. d. Remain in continual contact with the patient during admin. and for 5 minutes following to observe for adverse reactions and monitor injection site. e. Ask patient to report any burning or discomfort during infusion. If extravasation is suspected, stop infusion immediately, implement Extravasation Management Protocol, and notify physician. sodium chloride 0.9 % infusion Given - 01/02/2018 1,000 mL, Intravenous, CONTINUOUS, Bag 10:06 CDT Starting Fri01/02/18 at 1015, Until Fri01/02/18 at 1518, Pre-Op in this encounter
--- OUTSIDE RECORDS SUMMARY | 2018-02-10 09:57 | XMS REPORT | Encounter Summary ---
Author Author [facility] Organization [facility] Address Unknown Phone Unavailable Care Team Providers Care Sewage Screen Operator Name Role Phone Apoorva Shane MD [...] Date Type Department Care Team Description 01/02/2018 Anesthesia Gastrointenstinal Sandra Lakhani CRNA Event Endoscopy [address] [place] [address] [place] [address] [phone] Anesthesia Record Procedure Name Responsible Anesthesia Start Time Anesthesia Stop Time Anesthesiologist ESOPHAGOGASTRODUODENOSCOP Aneudy Bustamante MD 01/02/18 1008 01/02/18 1030 Y ENDOSCOPIC ULTRASOUND (N/A ) Date Time Event Comment 1005 AN Equip Check 2018 1007 Out of Pre Procedure 1008 In Room 1008 Anes Start 1009 An Start Data 1009 Start Supplemental O2 1009 Anesthesia Ready 1012 Proc Start 1029 an stop data 1030 Handoff to RN I completed my SBAR handoff to the receiving nurse. 1030 An Stop Meds Name Total lidocaine (2%) 200 mg/10mL Injection 70 mg syringe propofol (DIPRIVAN) 200 mg/ 20 mL 100 mg injection (VIAL) propofol (DIPRIVAN) infusion 120.48 mg sodium chloride 0.9 % infusion 700 mL * Name O2 N2O Inspired N2O * No blood administrations on file. Type Details Placement Removal Wounds 06/13/17; 0823; Vagina; Surgical 06/13/17 08 by Rashid, (NOT for Incision; SUTURES, VAGINAL PACKING WITH BELINDA Adkins Pressure ESTRACE CREAM. Injuries) Wounds 12/16/17; 0857; Groin; Surgical 12/16/17 0857 by Roberto, (NOT for Incision; CLANED AND DRIED BELINDA Valdovinos Pressure Injuries) Peripheral 01/02/18; 0849; RN; R; Hand; 20 G 01/02/18 0849 by JUAN ANTONIO Martin RN in this encounter Social History Tobacco Use [...] OR Notes * Anesthesia Postprocedure Evaluation - Aneudy Bustamante MD - 01/02/2018 11:23 AM CDT Post-Anesthesia Evaluation Name: Nara Huizar : 1955 Age: 62 y.o. Sex: female Procedure Date: 01/02/2018 Procedure: Procedure(s): ESOPHAGOGASTRODUODENOSCOPY ENDOSCOPIC ULTRASOUND ESOPHAGOGASTRODUODENOSCOPY ESOPHAGOGASTRODUODENOSCOPY BIOPSY Surgeon: Surgeon(s): Benito Albrecht MD Post-Anesthesia Vitals BP: 111/69 (01/02 1042) Temp: 36.5 C (97.7 F) (01/02 1033) Pulse: 93 (01/02 1042) Respirations: 18 PER MINUTE (01/02 1042) SpO2: 98 % (01/02 1042) SpO2 Pulse: 93 (01/02 1042) Post Anesthesia Evaluation Note Evaluation location: Pre/Post Patient participation: recovered; patient participated in evaluation Level of consciousness: alert Pain score: 0 Pain management: adequate Hydration: normovolemia Temperature: 36.0C - 38.4C Airway patency: adequate Perioperative Events Postoperative Status Cardiovascular status: hemodynamically stable Respiratory status: spontaneous ventilation Perioperative Events Perioperative Event: No Emergency Case Activation: No * Anesthesia Preprocedure Evaluation - Aneudy Bustamante MD - 01/02/2018 8:17 AM CDT Formatting of this note may be different from the original. Anesthesia Pre-Procedure Evaluation Name: Nara Huizar : 1955 Age: 62 y.o. Sex: female DOS: 01/02/2018 EUS/EGD Intractable nausea and vomiting Physical Assessment Vital Signs (last filed in past 24 hours): BP: 118/74 (01/02 822) Temp: 36.8 C (98.2 F) (01/02 822) Pulse: 83 (01/02 822) Respirations: 13 PER MINUTE (01/02 822) SpO2: 97 % (01/02 822) O2 Delivery: Nasal Cannula (01/02 822) Height: 160 cm (63") (01/02 822) Weight: 75.3 kg (166 lb) (01/02 822) Patient History Allergies Allergen Reactions Ibuprofen RASH Triple Antibiotic [Dwxas-Yegsj-Elmbznp-Pramoxine] RASH Naproxen Sodium NAUSEA ONLY Current Medications [...] Take one capsule by mouth every 12 hours for 5 days. Take with food. nitroglycerin (NITROSTAT) 0.4 mg [...] Neuromuscular disease Hx TIA CVA (facial droop, penitentiary memory loss, left hemiparesis), residual symptoms Headaches [...] irregular Rate: normal Pulmonary Findings: Decreased breath sounds and rales (bilateral LL crackles). Comments: Coarse breath sounds in lung bases bilaterally Abdominal Findings: Comments: Deferred Neurological Findings: Comments: A/O Diagnostic Tests Hematology: Lab Results Component Value [...] 05/28/2017 Anesthesia Plan ASA score: 3 Plan: MAC Induction method: intravenous NPO status: acceptable Informed Consent Anesthetic plan and risks discussed with patient. Blood Consent: consented Plan discussed with: INTERNAL CORROSION SPECIALIST. Comments: (Galinaquis 7 days ago. Risks of MAC explained; AQA; pt wishes to proceed) in this encounter Plan of Treatment Date Type Specialty Care Team Description 03/16/2018 Surgery Endoscopy, Physician MANOMETRY ESOPHAGEAL 03/16/2018 Procedure Pass 03/16/2018 Hospital Endoscopy, Physician Nausea and vomiting in Encounter adult 06/16/2018 Surgery Balbina Garcia MD CYSTOURETHROSCOPY WITH [address] [place] [address] BLADDER (BOTOX 300 UNITS) [phone] 06/16/2018 Procedure Pass 06/16/2018 [facility] Balbina Garcia MD Neurogenic bladder Encounter [address] [place] [address] [phone] as of this encounter Visit Diagnoses Not on filein this encounter Administered Medications Medication Order MAR Action Action Date Dose Rate Site lidocaine (PF) injection Given 01/02/2018 70 mg INTRA-PROCEDURE MED, Starting Fri 10:09 CDT 01/02/18 at 1009, Until Fri01/02/18 at 1032, Anesthesia Intra-op propofol (DIPRIVAN) infusion Given - New 01/02/2018 120 54.2 mL/hr 20 mL, Intravenous, INTRA-PROCEDURE Bag 10:11 CDT mcg/kg/min MED(CONT), Starting Fri01/02/18 at 1011, Until Fri01/02/18 at 1032, Anesthesia Intra-op Dose/Rate Change 01/02/2018 80 36.1 mL/hr 10:13 CDT mcg/kg/min Dose/Rate Change 01/02/2018 110 49.7 mL/hr 10:19 CDT mcg/kg/min propofol (DIPRIVAN) injection Given 01/02/2018 50 mg INTRA-PROCEDURE MED, Starting Fri 10:09 CDT 01/02/18 at 1009, Until Fri01/02/18 at 1032, Anesthesia Intra-op Given 01/02/2018 20 mg 10:12 CDT Given 01/02/2018 30 mg 10:21 CDT sodium chloride 0.9 % infusion Given - New 01/02/2018 1,000 mL, Intravenous, CONTINUOUS, Bag 10:06 CDT Starting Fri01/02/18 at 1015, Until Fri01/02/18 at 1518, Pre-Op in this encounter
--- OUTSIDE RECORDS SUMMARY | 2018-02-10 09:57 | XMS REPORT | Encounter Summary ---
Author Author [facility] Organization [facility] Address Unknown Phone Unavailable Care Team Providers Care Consulting Engineer Name Role Phone Apoorva Shane MD Unavailable Edgardo Torres MD Unavailable Amanda Bhandari Unavailable Montana Villasenor MD Unavailable Gilles Ness MD Unavailable Rain Tariq MD Unavailable Harika Hsu MD Unavailable Nayana Mccarty RN Unavailable Unavailable Symone Lee Unavailable Unavailable Lia Griffin MD PCP Reason for Visit * Reason Comments Medication Refill Encounter Details Date Type Department Care Team Description 01/06/2018 Refill [facility] Amanda Bhandari ARNP Physicians [address] Ortho and Medical MS [address] [place] [address] 2000 [facility] [phone] [place] [address] Social History Tobacco Use Types [...] Miscellaneous Notes * Telephone Encounter - Krystin NicholsonJERMAIN - 01/06/2018 11:42 AM CDT Refill request received for ranitidine 300mg Last OV 10/29/17 Last fill 10/03/17 # 60 w/ 3 refills Routing to [facility] for approval/refusal in this encounter Plan of Treatment Date Type Specialty Care Team Description 03/16/2018 Surgery Endoscopy, Physician MANOMETRY ESOPHAGEAL 03/16/2018 Procedure Pass 03/16/2018 Hospital Endoscopy, Physician Nausea and vomiting in Encounter adult 06/16/2018 Surgery Balbina Garcia MD CYSTOURETHROSCOPY WITH [address] INJECTION FOR MS [address] [place] [address] BLADDER (BOTOX 300 UNITS) [phone] 06/16/2018 Procedure Pass 06/16/2018 [facility] Balbina Garcia MD Neurogenic bladder Encounter [address] [place] [address] [phone] as of this encounter Visit Diagnoses Not on filein this encounter
--- OUTSIDE RECORDS SUMMARY | 2018-02-10 09:57 | XMS REPORT | Encounter Summary ---
Author Author [facility] Organization [facility] Address Unknown Phone Unavailable Care Team Providers Care Director Of Pharmacy Name Role Phone Apoorva Shane MD Unavailable Edgardo Torres MD Unavailable Amanda Bhandari Unavailable Montana Villasenor MD Unavailable Gilles Ness MD Unavailable Rain Tariq MD Unavailable Harika Hsu MD Unavailable Nayana Mccarty RN Unavailable Unavailable Symone Lee Unavailable Unavailable Lia Griffin MD PCP Encounter Details Date Type Department Care Team Description 01/02/2018 Procedure Pass Gastrointenstinal Endoscopy [address] [place] [address] Social History Tobacco Use Types [...] Surgery Balbina Garcia MD CYSTOURETHROSCOPY WITH [address] INJECTION FOR [place] [address] [place] [address] BLADDER (BOTOX 300 UNITS) [phone] 06/16/2018 Procedure Pass 06/16/2018 [facility] Balbina Garcia MD Neurogenic bladder Encounter [address] [place], [place] [address] as of this encounter Visit Diagnoses Not on filein this encounter
--- OUTSIDE RECORDS SUMMARY | 2018-02-10 09:57 | XMS REPORT | Encounter Summary ---
Author Author [facility] Organization [facility] Address Unknown Phone Unavailable Care Team Providers Care Operations Supervisor 2Nd Shift Name Role Phone Apoorva Shane MD Unavailable Edgardo Torres MD Unavailable Amanda Bhandari Unavailable Montana Villasenor MD Unavailable Gilles Ness MD Unavailable Rain Tariq MD Unavailable Harika Hsu MD Unavailable Nayana Mccarty RN Unavailable Unavailable Symone Lee Unavailable Unavailable Lia Griffin MD PCP Reason for Visit * Reason Comments Follow-up Phone Call Encounter Details Date Type Department Care Team Description 01/02/2018 Telephone [facility] Amanda Bhandari ARNP Follow -up Phone Call Physicians [address] Ortho and Medical MS [address] [place] [address] [address] [phone] [place] [address] Social History Tobacco Use Types [...] Telephone Encounter - Krystin Nicholson LPN - 01/05/2018 1:35 PM CDT Spoke to pt and relayed recommendations; pt verbalized understanding and is agreeable to labs during pain episode. Faxed orders to [facility] Rescheduled f/u OV apt to 01/26 * Telephone Encounter - Amanda Bhandari ARNP - 01/02/2018 10:47 AM CDT Call pt and let her know that if she has acute abdominal pain, need to check LFTs, can send her a standing order if needed. See has a follow up appt with me on 01/23/18 which is a Friday. This needs to be changed to a Friday AM or PM when I am in clinic with Dr. Torres. I do have openings on Friday AM and Th PM 02/12 if that works for her. * Telephone Encounter - Amanda Bhandari ARNP - 01/02/2018 10:47 AM CDT ----- Message from Benito Albrecht MD sent at 01/02/2018 10:30 AM CDT ----- Did the EUS. CBD was dilated to 10 mm. Check liver enzymes with abdominal pain. If they are elevated then we can do an ERCP. in this encounter Plan of Treatment Date Type Specialty Care Team Description 03/16/2018 Surgery Endoscopy, Physician MANOMETRY ESOPHAGEAL 03/16/2018 Procedure Pass 03/16/2018 Hospital Endoscopy, Physician Nausea and vomiting in Encounter adult 06/16/2018 Surgery Balbina Garcia MD CYSTOURETHROSCOPY WITH [address] INJECTION FOR MS [address] [place] [address] BLADDER (BOTOX 300 UNITS) [phone] 06/16/2018 Procedure Pass 06/16/2018 [facility] Balbina Garcia MD Neurogenic bladder Encounter [address] [place] [address] as of this encounter Results * LIVER FUNCTION PANEL [...] Diagnoses Diagnosis Dilation of common bile duct - Primary
--- OUTSIDE RECORDS SUMMARY | 2018-02-10 09:58 | XMS REPORT | Encounter Summary ---
Author Author [facility] Organization [facility] Address Unknown Phone Unavailable Care Team Providers Care Developer Evangelist Name Role Phone Apoorva Shane MD Unavailable Edgardo Torres MD Unavailable Amanda Bhandari Unavailable Montana Villasenor MD Unavailable Gilles Ness MD Unavailable Rain Tariq MD Unavailable Harika Hsu MD Unavailable Nayana Mccarty RN Unavailable Unavailable Symone Lee Unavailable Unavailable Crissy Grande APPLICATION INTEGRATION SPECIALIST PCP Reason for Visit * Reason Comments General Question Encounter Details Date Type Department Care Team Description 12/29/2017 Telephone [facility] Balbina Garcia MD General Question Physicians - Urology [address] Ortho and Medical MS [address] [place] [address] [facility] [phone] [place] [address] Social History Tobacco Use Types [...] Surgery Balbina Garcia MD CYSTOURETHROSCOPY WITH [address] INJECTION FOR MS [address] [place] [address] BLADDER (BOTOX 300 UNITS) [phone] 06/16/2018 Procedure Pass 06/16/2018 [facility] Balbina Garcia MD Neurogenic bladder Encounter [address] [place] [address] [phone] as of this encounter Visit Diagnoses Not on filein this encounter
--- OUTSIDE RECORDS SUMMARY | 2018-02-10 09:58 | XMS REPORT | Encounter Summary ---
Author Author [facility] Organization [facility] Address Unknown Phone Unavailable Care Team Providers Care Glass Smoother Name Role Phone Apoorva Shane MD Unavailable Edgardo Torres MD Unavailable Amanda Bhandari Unavailable Montana Villasenor MD Unavailable Gilles Ness MD Unavailable Rain Tariq MD Unavailable Harika Hsu MD Unavailable Nayana Mccarty RN Unavailable Unavailable Symone Lee Unavailable Unavailable Crissy Grande TRUST AND ESTATES ATTORNEY PCP Reason for Visit * Reason Comments Urinary Frequency Encounter Details Date Type Department Care Team Description 12/22/2017 Telephone [facility] Javier Hawk MD Urinary Frequency Physicians - Urology [address] [place] [address] [address] [phone] 1999 [facility] [place] [address] Social History Tobacco Use Types [...] Physician MANOMETRY ESOPHAGEAL 03/16/2018 Procedure Pass 03/16/2018 [facility] Endoscopy, Physician Nausea and vomiting in Encounter adult 06/16/2018 Surgery Balbina Garcia MD CYSTOURETHROSCOPY WITH [address] INJECTION FOR MS [address] [place] [address] BLADDER (BOTOX 300 UNITS) [phone] 06/16/2018 Procedure Pass 06/16/2018 [facility] Balbina Garcia MD Neurogenic bladder Encounter [address] [place] [address] [phone] as of this encounter Visit Diagnoses Not on filein this encounter
--- OUTSIDE RECORDS SUMMARY | 2018-02-10 09:58 | XMS REPORT | Encounter Summary ---
Author Author [facility] Organization [facility] Address Unknown Phone Unavailable Care Team Providers Care Underwriting Analyst Name Role Phone Apoorva Shane MD Unavailable Edgardo Torres MD Unavailable Amanda Bhandari Unavailable Montana Villasenor MD Unavailable Gilles eNss MD Unavailable Rain Tariq MD Unavailable Harika Hsu MD Unavailable Nayana Mccarty RN Unavailable Unavailable Symone Lee Unavailable Unavailable Crissy Grande FIELD REPRESENTATIVE/HEALTH EDUCATION PCP Reason for Visit * Reason Comments General Question Encounter Details Date Type Department Care Team Description 12/16/2017 Telephone [facility] Balbina Garcia MD General Question Physicians - Urology [address] Ortho and Medical MS [address] [place] [address] 2000 [facility] [phone] [place] [address] Social History Tobacco Use Types [...] encounter Miscellaneous Notes * Telephone Encounter - Kisah Price RN - 12/16/2017 4:21 PM CDT Pt calling to ask for Dr. Garcia's nurse, states she uses the "smallest catheter" in size and would like those ordered and a return call when this is done. Routing to [facility] for ordering in this encounter Plan of Treatment Date Type Specialty Care Team Description 03/16/2018 Surgery Endoscopy, Physician MANOMETRY ESOPHAGEAL 03/16/2018 Procedure Pass 03/16/2018 Hospital Endoscopy, Physician Nausea and vomiting in Encounter adult 06/16/2018 Surgery Balbina Garcia MD CYSTOURETHROSCOPY WITH [address] INJECTION FOR MS [address] [place] [address] BLADDER (BOTOX 300 UNITS) [phone] 06/16/2018 Procedure Pass 06/16/2018 [facility] Balbina Garcia MD Neurogenic bladder Encounter [address] [place] [address] [phone] as of this encounter Visit Diagnoses Not on filein this encounter
--- OUTSIDE RECORDS SUMMARY | 2018-02-10 09:58 | XMS REPORT | Encounter Summary ---
Author Author [facility] Organization [facility] Address Unknown Phone Unavailable Care Team Providers Care Director Of Broadcast Name Role Phone Apoorva Shane MD Unavailable Edgardo Torres MD Unavailable Amanda Bhandari Unavailable Montana Villasenor MD Unavailable Gilles Ness MD Unavailable Rain Tariq MD Unavailable Harika Hsu MD Unavailable Nayana Mccarty RN Unavailable Unavailable Symone Lee Unavailable Unavailable Crissy Grande GAS JOCKEY PCP Reason for Visit * Reason Comments General Question Encounter Details Date Type Department Care Team Description 12/17/2017 Telephone [facility] Balbina Garcia MD General Question Physicians - Urology [address] Ortho and Medical MS [address] [place] [address] 2000 [facility] [phone] [place] [address] Social History Tobacco Use Types [...] Physician MANOMETRY ESOPHAGEAL 03/16/2018 Procedure Pass 03/16/2018 [facility] Endoscopy, Physician Nausea and vomiting in Encounter adult 06/16/2018 Surgery Balbina Garcia MD CYSTOURETHROSCOPY WITH [address] INJECTION FOR MS [address] [place] [address] BLADDER (BOTOX 300 UNITS) [phone] 06/16/2018 Procedure Pass 06/16/2018 [facility] Balbina Garcia MD Neurogenic bladder Encounter [address] [place] [address] [phone] as of this encounter Visit Diagnoses Not on filein this encounter
--- OUTSIDE RECORDS SUMMARY | 2018-02-10 09:58 | XMS REPORT | Encounter Summary ---
Author Author [facility] Organization [facility] Address Unknown Phone Unavailable Care Team Providers Care Machine Helper Name Role Phone Apoorva Shane MD Unavailable Edgardo Torres MD Unavailable Amanda Bhandari Unavailable Montana Villasenor MD Unavailable Gilles Ness MD Unavailable Rain Tariq MD Unavailable Harika Hsu MD Unavailable Nayana Mccarty RN Unavailable Unavailable Symone Lee Unavailable Unavailable Crissy Grande NP PCP Lia Griffin MD PCP Encounter Details Date Type Department Care Team Description 12/24/2017 Ancillary Rad Outpatient, Radiologist Diagnosis unknown Orders 1999 [facility], Level 2 [place] [address] Social History Tobacco Use Types [...] Surgery Balbina Garcia MD CYSTOURETHROSCOPY WITH [address] INJECTION FOR MS [address] [place] [address] BLADDER (BOTOX 300 UNITS) [phone] 06/16/2018 Procedure Pass 06/16/2018 [facility] Balbina Garcia MD Neurogenic bladder Encounter [address] [place] [address] [phone] as of this encounter Results * MRI T-SPINE EXTERNAL IMAGING (12/19/2017) Narrative Performed At This order has been auto finalized and does not contain a result. in this encounter Visit Diagnoses Diagnosis Diagnosis unknown Other unknown and unspecified cause of morbidity or mortality
--- OUTSIDE RECORDS SUMMARY | 2018-02-10 09:58 | XMS REPORT | Encounter Summary ---
Author Author [facility] Organization [facility] Address Unknown Phone Unavailable Care Team Providers Care Cost Manager Name Role Phone Apoorva Shane MD [...] Date Type Department Care Team Description 01/02/2018 Hospital Gastrointenstinal Benito Albrecht MD Weight loss Encounter Endoscopy [address] [place] [address] [place] [address] [phone] Social History Tobacco Use Types Packs/Day Years [...] encounter Discharge Instructions * Discharge Instr - Kathryn - Randa Kelly RN - 01/02/2018 11:38 [...] After 5:00 pm, holidays or weekends call [phone] and ask for the GI Doctor longwall machine operator helper. in this encounter Medications at Time of [...] Acid reflux controlled by protonix Afib ([facility]) Alzheimer disease 2005 Anxiety disorder Arthritis Asthma Colon polyps COPD (chronic obstructive pulmonary disease) ([facility]) Depression DM (diabetes mellitus) ([facility]) last A1C 5 Dyslipidemia Gastroparesis Generalized headaches Heart disease Hyperlipemia Irritable bowel disease Irritable bowel syndrome with diarrhea On supplemental oxygen therapy 3L/NC per day, 5L/NC per night Stroke ([facility]) most recent 2014 6 total strokes, right facial drooping, left sided weakness 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 performed by Edgardo Torres MD at ENDO/GI OR SIGMOIDOSCOPY FLX W/BIOPSY SINGLE/MULTIPLE 09/26/2015 SIGMOIDOSCOPY BIOPSY performed by Edgardo Torres MD at ENDO/GI HX CARPAL TUNNEL RELEASE Bilateral 2017 and "nerve damage" repair per elbows OR RMVL/REVJ SLING STRESS INCONTINENCE N/A 06/13/2017 URETHROLYSIS, INCISION OF URETHRAL SLING, CYSTOSCOPY performed by Balbina Garcia MD at Main OR/Periop KNEE SURGERY 07/16/2017 ELBOW SURGERY 09/08/2017 OR CYSTOURETHROSCOPY INJ CHEMODENERVATION BLADDER N/A 12/16/2017 CYSTOSCOPY, INJECTION BOTOX (300 UNITS) performed by Balbina Garcia MD at Main OR/Periop ABLATION OF DYSRHYTHMIC FOCUS ? 2015 or 2016 done at [facility] EPIDURAL BLOCK HX CERVICAL FUSION 2004 [...] Drug Use No Allergies: Ibuprofen; Triple antibiotic [[id number]-rqesfvs-pramoxine]; and Naproxen sodium Medications No current facility-administered [...] Surgery Balbina Garcia MD CYSTOURETHROSCOPY WITH [address] INJECTION FOR MS [address] [place] [address] BLADDER (BOTOX 300 UNITS) [phone] 06/16/2018 Procedure Pass 06/16/2018 [facility] Balbina Garcia MD Neurogenic bladder Encounter [address] [place] [address] Name Priority Associated Diagnoses Order Schedule SURGICAL [...] for 01/02/18 procedure 30 11/05/2017 1015 (MF) CBC STAT 01/02/2018 Results [...] PATHOLOGY (01/02/2018 12:24 PM) PATHOLOGY REPORT [facility] [employer] [facility] [email or web address] Department of Pathology and Laboratory Medicine [address] [place] [address] Surgical Pathology Office:[phone] :[phone] SURGICAL PATHOLOGY REPORT NAME: NARA HUIZAR JO SURG PATH #: [id number] MR #: [id number] SPECIMEN CLASS: SR BILLING #: [id number] ALT ID #:LOCATION: GIENDO DATE OF PROCEDURE: 01/02/2018 AGE:62 SEX: F [...] RESULTS Procedure Date: 01/02/2018 10:05 AM CSN: [id number] Date of : 1955 Gender: Female Attending Physician: Benito Albrecht MD Procedure: Upper EUS Indications: Epigastric abdominal pain, Weight loss Providers: Benito Albrecht MD (Doctor), Anna Vasques RN (Nurse), Elida Fernandez Business Loan Processor (Business Loan Processor) Referring Physician: Amanda Ortiz, Edgardo Torres MD [...] 58 seconds Procedure Code(s): --- Professional --- 38078, Esophagogastroduodenoscopy, flexible, transoral; with endoscopic ultrasound examination limited to the esophagus, stomach or duodenum, and adjacent structures 43956, 59, Esophagogastroduodenoscopy, flexible, transoral; with biopsy, single or multiple CPT copyright 2016 [employer] [place] [employer]. All rights reserved. The codes documented in this report are preliminary and upon novelty candy maker review may be revised to meet current compliance requirements. Attending Participation: I personally performed the entire procedure. Benito Albrecht MD 01/02/2018 10:30:16 AM The attending physician has electronically signed and finalized this document. Number of Addenda: 0 Note Initiated On: 01/02/2018 10:05 AM Performing Organization Address City/[facility] Phone Number [facility]OCK[facility] OTHER RESULTS * CBC [...] MAIN LAB Specimen Blood Performing Organization Address City/[facility]/Zipcode Phone Number MAIN LAB [address] [place] [address] * BASIC METABOLIC PANEL (01/02/2018 8:50 AM) [...] Blood Performing Organization Address City/State/Zipcode Phone Number [facility] [address] [place] [address] * POC GLUCOSE (01/02/2018 8:40 AM) Glucose, POC 106 (H) 70 - 100 MG/DL MAIN LAB Performing Organization Address City/[facility]/Zipcode Phone Number [facility] [address] [place] [address] in this encounter Visit Diagnoses Diagnosis Weight [...]
--- OUTSIDE RECORDS SUMMARY | 2018-02-10 09:58 | XMS REPORT | Encounter Summary ---
Author Author [facility] Organization [facility] Address Unknown Phone Unavailable Care Team Providers Care Band Saw Marker Name Role Phone Apoorva Shane MD Unavailable Edgardo Torres MD Unavailable Amanda Bhandari Unavailable Montana Villasenor MD Unavailable Gilles Ness MD Unavailable Rain Tariq MD Unavailable Harika Hsu MD Unavailable Nayana Mccarty RN Unavailable Unavailable Symone Lee Unavailable Unavailable Crissy Grande CORPORATE COUNSEL PCP Reason for Visit * Reason Comments General Question Encounter Details Date Type Department Care Team Description 12/29/2017 Telephone [facility] Edson Negrete MD General Question Physicians - Urology [address] [place] [address] [address] Level [address] [place] [address] Social History Tobacco Use Types Packs/Day Years [...] urinary frequency, urgency, dysuria. Contacted lab at [facility] in [place], [place] at [phone]. Urine culture submitted on 12/25/17 grew enterococcus [...] Surgery Balbina Garcia MD CYSTOURETHROSCOPY WITH [address] INJECTION FOR MS [address] [place] [address] BLADDER (BOTOX 300 UNITS) [phone] 06/16/2018 Procedure Pass 06/16/2018 [facility] Balibna Garcia MD Neurogenic bladder Encounter [address] [facility] [address] [place] [address] [phone] as of this encounter Visit Diagnoses Not on filein this encounter
--- OUTSIDE RECORDS SUMMARY | 2018-02-10 09:58 | XMS REPORT | Encounter Summary ---
Author Author [facility] Organization [facility] Address Unknown Phone Unavailable Care Team Providers Care Shank Tapper Name Role Phone Apoorva Shane MD Unavailable Edgardo Torres MD Unavailable Amanda Bhandari Unavailable Montana Villasenor MD Unavailable Gilles Ness MD Unavailable Rain Tariq MD Unavailable Harika Hsu MD Unavailable Nayana Mccarty RN Unavailable Unavailable Symone Lee Unavailable Unavailable Crissy Grande POWERHOUSE ELECTRICIAN PCP Reason for Visit * Reason Comments General Question Encounter Details Date Type Department Care Team Description 12/22/2017 Telephone [facility] Balbina Garcia MD General Question Physicians - Urology [address] Ortho and Medical MS [address] [place] [address] 2000 [facility] [phone] [place] [address] Social History Tobacco Use Types [...] Surgery Balbina Garcia MD CYSTOURETHROSCOPY WITH [address] INJECTION FOR MS [address] [place] [address] BLADDER (BOTOX 300 UNITS) [phone] 06/16/2018 Procedure Pass 06/16/2018 [facility] Balbina Garcia MD Neurogenic bladder Encounter [address] [place] [address] [phone] as of this encounter Visit Diagnoses Not on filein this encounter
--- OUTSIDE RECORDS SUMMARY | 2018-02-10 09:58 | XMS REPORT | Encounter Summary ---
Author Author [facility] Organization [facility] Address Unknown Phone Unavailable Care Team Providers Care Occupational Therapist Rehab Manager Name Role Phone Apoorva Shane MD Unavailable Edgardo Torres MD Unavailable Amanda Bhandari Unavailable Montana Villasenor MD Unavailable Gilles Ness MD Unavailable Rain Tariq MD Unavailable Harika Hsu MD Unavailable Nayana Mccarty RN Unavailable Unavailable Symone Lee Unavailable Unavailable Crissy Grande NP PCP Encounter Details Date Type Department Care Team Description 12/19/[address] [facility] Radiology [facility] Hospital 2nd fl [address] [place] [address] Social History Tobacco Use Types [...] one at bedtime. as of this encounter Plan of Treatment Date Type Specialty Care Team Description 03/16/2018 Surgery Endoscopy, Physician MANOMETRY ESOPHAGEAL 03/16/2018 Procedure Pass 03/16/2018 Hospital Endoscopy, Physician Nausea and vomiting in Encounter adult 06/16/2018 Surgery Balbina Garcia MD CYSTOURETHROSCOPY WITH [address] INJECTION FOR MS [address] [place] [address] BLADDER (BOTOX 300 UNITS) [phone] 06/16/2018 Procedure Pass 06/16/2018 [facility] Balbina Garcia MD Neurogenic bladder Encounter [address] [place] [address] [phone] as of this encounter Procedures Procedure Name [...]
--- OUTSIDE RECORDS SUMMARY | 2018-02-10 09:58 | XMS REPORT | Encounter Summary ---
Author Author [facility] Organization [facility] Address Unknown Phone Unavailable Care Team Providers Care Screen Door Maker Name Role Phone Apoorva Shane MD Unavailable Edgardo Torres MD Unavailable Amanda Bhandari Unavailable Montana Villasenor MD Unavailable Gilles Ness MD Unavailable Rain Tariq MD Unavailable Harika Hsu MD Unavailable Nayana Mccarty RN Unavailable Unavailable Symone Lee Unavailable Unavailable Crissy Grande SEWER SEPARATION DESIGNER PCP Reason for Visit * Reason Comments General Question Encounter Details Date Type Department Care Team Description 12/29/2017 Telephone [facility] Balbina Garcia MD General Question Physicians - Urology [address] Ortho and Medical [place] [address] [place] [address] [address] [facility] [phone] [place] [address] Social History Tobacco Use Types [...] Surgery Balbina Garcia MD CYSTOURETHROSCOPY WITH [address] INJECTION FOR [place] [address] [place] [address] BLADDER (BOTOX 300 UNITS) [phone] 06/16/2018 Procedure Pass 06/16/2018 [facility] Balbina Garcia MD Neurogenic bladder Encounter [address] [place] [address] [phone] as of this encounter Visit Diagnoses Not on filein this encounter
--- OUTSIDE RECORDS SUMMARY | 2018-02-10 09:59 | XMS REPORT | Encounter Summary ---
Author Author [facility] Organization [facility] Address Unknown Phone Unavailable Care Team Providers Care Maintenance Director Name Role Phone Apoorva Shane MD Unavailable Edgardo Torres MD Unavailable Amanda Bhnadari Unavailable Montana Villasenor MD Unavailable Gilles Ness MD Unavailable Rain Tariq MD Unavailable Harika Hsu MD Unavailable Nayana Mccarty RN Unavailable Unavailable Symone Lee Unavailable Unavailable Crissy Grande NP PCP Lia Griffin MD PCP Encounter Details Date Type Department Care Team Description 12/16/2017 Procedure Pass Main Operating Room [address] [address] Social History Tobacco Use Types [...] Surgery Balbina Garcia MD CYSTOURETHROSCOPY WITH [address] INJECTION FOR [place] [address] [place] [address] BLADDER (BOTOX 300 UNITS) [phone] 06/16/2018 Procedure Pass 06/16/2018 [facility] Balbina Garcia MD Neurogenic bladder Encounter [address] [place] [address] [phone] as of this encounter Visit Diagnoses Not on filein this encounter
--- OUTSIDE RECORDS SUMMARY | 2018-02-10 09:59 | XMS REPORT | Encounter Summary ---
Author Author [facility] Organization [facility] Address Unknown Phone Unavailable Care Team Providers Care Cheesemaker Helper Name Role Phone Apoorva Shane MD Unavailable Edgardo Torres MD Unavailable Amanda Bhandari Unavailable Montana Villasenor MD Unavailable Gilles Ness MD Unavailable Rain Tariq MD Unavailable Harika Hsu MD Unavailable Nayana Mccarty RN Unavailable Unavailable Symone Lee Unavailable Unavailable Crissy Grande FAMILY MEDICINE PHYSICIAN PCP Reason for Visit * Auth/Cert Status Reason Specialty Diagnoses / Referred By Referred To Procedures Contact Contact Diagnoses Neurogenic bladder Neurogenic bladder [N31.9] P rocedures [place] CYSTOURETHROSCOP Y INJ CHEMODENERVATION BLADDER CYSTOSCOPY INJECTION NEUROTOXIN Encounter Details Date Type Department Care Team Description 12/16/2017 Anesthesia Main Operating Room Livier Moran, Event Main Hospital 2nd ga [address] [facility] [address] [place] [address] [place] [address] [phone] Anesthesia Record Procedure Name Responsible Anesthesia Start [...] Allergies Allergen Reactions Ibuprofen RASH Triple Antibiotic [Prpea-Hxptw-Lnzwafd-Pramoxine] RASH Naproxen Sodium NAUSEA ONLY Current Medications [...] Neuromuscular disease Hx TIA CVA (facial droop, detention memory loss, left hemiparesis), residual symptoms Headaches [...] Surgery Balbina Garcia MD CYSTOURETHROSCOPY WITH [address] INJECTION FOR [place] [address] [place] [address] BLADDER (BOTOX 300 UNITS) [phone] 06/16/2018 Procedure Pass 06/16/2018 [facility] Balbina Garcia MD Neurogenic bladder Encounter [address] [place] [address] [phone] as of this encounter Visit Diagnoses Not [...] ophthalmic solution 08:35 CDT INTRA-PROCEDURE MED, Starting Fri12/16/17 at 0835, Until Fri12/16/17 at 0924, Dry Eyes, Anesthesia Intra-op ePHEDrine 50 mg/mL 50 mg in sodium Given - New 12/16/2017 5 mg chloride PF 0.9% 5 mL IV syringe Bag 08:54 CDT 5 mL, INTRA-PROCEDURE MED(CONT), Starting Fri12/16/17 at 0854, Until Fri12/16/17 at 0924, Anesthesia Intra-op famotidine (PEPCID) injection Given 12/16/2017 20 mg INTRA-PROCEDURE MED, Starting Tue 08:05 CDT 12/16/17 at 0805, Until Fri12/16/17 at 0924, Indigestion/Heartburn, Anesthesia Intra-op lidocaine (PF) injection Given 12/16/2017 80 mg INTRA-PROCEDURE MED, Starting Tue 08:33 CDT 12/16/17 at 0833, Until e 12/16/17 at 0924, Anesthesia Intra-op metoclopramide (REGLAN) injection Given 12/16/2017 10 mg INTRA-PROCEDURE MED, Starting Tue 08:05 CDT 12/16/17 at 0805, Until Fri12/16/17 at 09, Nausea/Vomiting Injectable, Anesthesia Intra-op midazolam (VERSED) injection Given 12/16/2017 2 mg Intravenous, INTRA-PROCEDURE MED, 08:25 CDT Starting e 12/16/17 at 0825, Until Fri12/16/17 at 0924, Agitation Injectable, Anxiety Injectable, Anesthesia Intra-op ondansetron (ZOFRAN) injection Given 12/16/2017 4 mg Intravenous, INTRA-PROCEDURE MED, 08:46 CDT Starting 12/16/17 at 0846, Until Fri12/16/17 at 0924, Nausea/Vomiting Injectable, Anesthesia Intra-op phenylephrine in NS injection syringe Given 12/16/2017 150 mcg Intravenous, INTRA-PROCEDURE MED, 08:46 CDT Starting 12/16/17 at 0846, Until Fri12/16/17 at 0924, Symptomatic Hypotension, Anesthesia Intra-op Given 12/16/2017 150 mcg 08:52 CDT Given 12/16/2017 150 mcg 08:56 CDT propofol (DIPRIVAN) injection Given 12/16/2017 150 mg INTRA-PROCEDURE MED, Starting Fri 08:33 CDT 12/16/17 at 0833, Until e 12/16/17 at 0924, Anesthesia Intra-op in this encounter
--- OUTSIDE RECORDS SUMMARY | 2018-02-10 09:59 | XMS REPORT | Encounter Summary ---
Author Author [facility] Organization [facility] Address Unknown Phone Unavailable Care Team Providers Care Surveillance Sensor Officer Name Role Phone Apoorva Shane MD Unavailable Edgardo Torres MD Unavailable Amanda Bhandari Unavailable Montana Villasenor MD Unavailable Gilles Ness MD Unavailable Rain Tariq MD Unavailable Harika Hsu MD Unavailable Nayana Mccarty RN Unavailable Unavailable Symone Lee Unavailable Unavailable Crissy Grande PRODUCT DEVELOPMENT CARPENTER PCP Reason for Visit * Auth/Cert Status Reason Specialty Diagnoses / Referred By Referred To Procedures Contact Contact Diagnoses Neurogenic bladder Neurogenic bladder [N31.9] P rocedures NE CYSTOURETHROSCOP Y INJ CHEMODENERVATION BLADDER CYSTOSCOPY INJECTION NEUROTOXIN Encounter Details Date Type Department Care Team Description 12/16/2017 Hospital Main Operating Room Balbina Garcia MD Neurogenic bladder Encounter Main Hospital 2nd fl [address] [place] [address] [place], [place] [id number] Social History Tobacco Use Types Packs/Day Years [...] interact with your prescription medicines or other tayq-ykh-bowgjva (OTC) medicines. Some prescription medicines have acetaminophen [...] of taking these medicines. Date Last Reviewed: 03/07/201619991316-8941 [employer]. [address] [place] [address]. All rights reserved. This information is not [...] basin, wash it out. Date Last Reviewed: 03/07/201619996660-6505 [employer]. [address] [place] [place] [address]. All rights reserved. This information is not [...] with any medicine updates or questions. E-mail: [email or web address] Before going home from the hospital, please [...] and any other valuables at home. [facility] the loss or breakage of personal items. Remove nail lao, makeup and all jewelry (including piercings) before coming to the hospital. The morning of your procedure: brush your teeth and tongue do not smoke do not shave the area where you will have surgery What to bring to the hospital ID/ Insurance Card General Accountant card Official documents for legal guardianship Copy of your Living Will, Advanced Directives, and/or Durable Power of Fairground Operator Small bag with a few personal belongings [...] do not receive a call, please call [phone] before 4:30pm or [phone] after 4:30pm. Notify us at [facility]: if you need to cancel your procedure if you are going to be late Arrival at the [facility] [address] [place] [address] Park in the Parking Garage, located directly across from the main entrance to the hospital. Carpenter Maintenance parking is available from 7 AM to 4 PM Friday through Friday. Enter through the ground floor [facility] entrance and check in at the Information [...] one at bedtime. as of this encounter Progress Notes * Angella Eason RN - 12/16/2017 11:00 AM CDT Discharge instructions [...] by Dr. Jose Kelly MD Page Urology environmental aide with questions. __ History of Present Illness [...] that time she reported urgency, frequency and MTFi2danwx. Denied [place]ICO. She endorsed having to crede [...] reflux controlled by protonix Afib ([facility]) Alzheimer disease 2004 Anxiety disorder Arthritis Asthma Colon polyps COPD (chronic obstructive pulmonary disease) ([facility]) Depression DM (diabetes mellitus) ([facility]) last A1C 5 Dyslipidemia Gastroparesis Generalized headaches Heart disease Hyperlipemia Irritable bowel disease Irritable bowel syndrome with diarrhea On supplemental oxygen therapy 3L/NC per day, 5L/NC per night Stroke ([facility]) most recent 2014 6 total strokes, right facial drooping, left sided weakness 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 performed by Edgardo Torres MD at ENDO/GI NE SIGMOIDOSCOPY FLX W/BIOPSY SINGLE/MULTIPLE 09/26/2015 SIGMOIDOSCOPY BIOPSY performed by Edgardo Torres MD at ENDO/GI HX CARPAL TUNNEL RELEASE Bilateral 2017 and "nerve damage" repair per elbows NE RMVL/REVJ SLING STRESS INCONTINENCE N/A 06/13/2017 URETHROLYSIS, INCISION OF URETHRAL SLING, CYSTOSCOPY performed by Balbina Garcia MD at Main OR/Periop KNEE SURGERY 07/16/2017 ELBOW SURGERY 09/08/2017 ABLATION OF DYSRHYTHMIC FOCUS ? 2016 or 2017 done at [facility] EPIDURAL BLOCK HX CERVICAL FUSION 2004 to [...] for this patient. Allergies: Ibuprofen; Triple antibiotic [hargu-dhqks-cstuqzq-pramoxine]; and Naproxen sodium Medications: Prescriptions Prior to [...] PACU - stable Cristofer Olivares MD Pager [phone] ATTESTATION I performed this procedure with a [...] Specimen(s) Removed/Disposition: none Cristofer Olivares MD Pager [phone] ATTESTATION I performed this procedure with a resident. Staff name: Balbina Garcia MD in this encounter Plan of Treatment Date Type Specialty Care Team Description 03/16/2018 Surgery Endoscopy, Physician MANOMETRY ESOPHAGEAL 03/16/2018 Procedure Pass 03/16/2018 Hospital Endoscopy, Physician Nausea and vomiting in Encounter adult 06/16/2018 Surgery Balbina Garcia MD CYSTOURETHROSCOPY WITH [address] INJECTION FOR MS [address] [place] [address] BLADDER (BOTOX 300 UNITS) [phone] 06/16/2018 Procedure Pass 06/16/2018 [facility] Balbina Garcia MD Neurogenic bladder Encounter [address] [place] [address] as of this encounter Procedures [...] 12/02 TO 12/16 - Tay GUERRA RN ([id number]) POC GLUCOSE 12/16/2017 Results for this 6:26 AM CDT procedure are in the results section. in this encounter Results * ECG-SCAN (12/17/2017 12:08 PM) Narrative Performed At Ordered by an unspecified provider. * POC GLUCOSE (12/16/2017 9:30 AM) Glucose, POC 93 70 - 100 MG/DL [facility] Performing Organization Address City/State/Zipcode Phone Number [facility] [address] [place] [address] * POC GLUCOSE (12/16/2017 6:26 AM) Glucose, POC 97 70 - 100 MG/DL [facility] Performing Organization Address City/State/Zipcode Phone Number [facility]IN LAB [address] [place] [address] in this encounter Visit Diagnoses Diagnosis Neurogenic [...] mg, Oral, ONCE PRN, 1 dose, Starting e 12/16/17 at 0858, Until 12/16/17 at 2359, Pain PO, For Pain Score <4, PACU (only) sodium chloride 0.9 % irrigation bag Given 12/16/2017 3,000 mL INTRA-PROCEDURE MED, Starting Fri 08:51 CDT 12/16/17 at 0851, Until e 12/16/17 at 1308, Intra-op in this encounter
--- OUTSIDE RECORDS SUMMARY | 2018-02-10 09:59 | XMS REPORT | Encounter Summary ---
Author Author [facility] Organization [facility] Address Unknown Phone Unavailable Care Team Providers Care Scooter Mechanic Name Role Phone Apoorva Shane MD Unavailable Edgardo Torres MD Unavailable Amanda Bhandari Unavailable Montana Villasenor MD Unavailable Gilles Ness MD Unavailable Rain Tariq MD Unavailable Harika Hsu MD Unavailable Nayana Mccarty RN Unavailable Unavailable Symone Lee Unavailable Unavailable Crissy Grande APPLICATION OPERATIONS ENGINEER PCP Reason for Visit * Reason Comments General Question Encounter Details Date Type Department Care Team Description 12/16/2017 Telephone [facility] Balbina Garcia MD General Question Physicians - Urology [address] Ortho and Medical [place] [address] [place] [address] 2000 [facility], [facility] [place] [address] Social History Tobacco Use Types [...] Notes * Telephone Encounter - Hans Broussard, INFORMATION MANAGEMENT OFFICER - 12/16/2017 4:05 PM CDT Received [...] Surgery Balbina Garcia MD CYSTOURETHROSCOPY WITH [address] INJECTION FOR [place] [address] [place] [address] BLADDER (BOTOX 300 UNITS) [phone] 06/16/2018 Procedure Pass 06/16/2018 [facility] Balbina Garcia MD Neurogenic bladder Encounter [address] [place] [address] [phone] as of this encounter Visit Diagnoses Not on filein this encounter
--- OUTSIDE RECORDS SUMMARY | 2018-02-10 09:59 | XMS REPORT | Encounter Summary ---
Author Author [facility] Organization [facility] Address Unknown Phone Unavailable Care Team Providers Care Environmental Field Office Manager Name Role Phone Apoorva Shane MD Unavailable Edgardo Torres MD Unavailable Amanda Bhandari Unavailable Montana Villasenor MD Unavailable Gilles Ness MD Unavailable Rain Tariq MD Unavailable Harika Hsu MD Unavailable Nayana Mccarty RN Unavailable Unavailable Symone Lee Unavailable Unavailable Crissy Grande CIRCULAR GANG SAW OPERATOR PCP Reason for Visit * Auth/Cert Status Reason Specialty Diagnoses / Referred By Referred To Procedures Contact Contact Diagnoses Neurogenic bladder Neurogenic bladder [N31.9] P rocedures [place] CYSTOURETHROSCOP Y INJ CHEMODENERVATION BLADDER CYSTOSCOPY INJECTION NEUROTOXIN Encounter Details Date Type Department Care Team Description 12/16/2017 Surgery Main Operating Room Balbina Garcia MD CYSTOSCOPY, INJECTION [facility] 2nd fl [address] BOTOX (300 UNITS) [address] [place] [address] [place] [address] [phone] Social History Tobacco Use Types Packs/Day Years [...] interact with your prescription medicines or other ccpm-lme-gjlrlpp (OTC) medicines. Some prescription medicines have acetaminophen [...] of taking these medicines. Date Last Reviewed: 03/07/201619991203-0920 [employer]. [address] [place] [address], [place] [address]. All rights reserved. This information is not [...] basin, wash it out. Date Last Reviewed: 03/07/201619991994-8459 [employer]. [address] [place] [address]. All rights reserved. This information is not [...] with any medicine updates or questions. E-mail: [email or web address] Before going home from the hospital, [...] and any other valuables at home. [facility] is not responsible for the loss or breakage of personal items. Remove nail japanese, makeup and all jewelry (including piercings) before coming to the hospital. The morning of your procedure: brush your teeth and tongue do not smoke do not shave the area where you will have surgery What to bring to the hospital ID/ Insurance Card Siding Installer card Official documents for legal guardianship Copy of your Living Will, Advanced Directives, and/or Durable Power of Fitting Room Checker Small bag with a few personal belongings [...] do not receive a call, please call [phone] before 4:30pm or [phone] after 4:30pm. Notify us at [facility]: if you need to cancel your procedure if you are going to be late Arrival at the [facility] [address] [place] [address] Park in the [address]3 Parking Garage, located directly across from the main entrance to the hospital. Hoop Expander parking is available from 7 AM to 4 PM Friday through Friday. Enter through the ground floor [facility] entrance and check in at the [...] by Dr. Jose Kelly MD Page Urology supervisor calibration with questions. __ History of Present Illness [...] that time she reported urgency, frequency and [id number]. Denied [place]. She endorsed having to crede [...] Date Acid reflux controlled by protonix Afib ([facility]) Alzheimer disease 2004 Anxiety disorder Arthritis Asthma Colon polyps COPD (chronic obstructive pulmonary disease) ([facility]) Depression DM (diabetes mellitus) ([facility]) last A1C 5 Dyslipidemia Gastroparesis Generalized headaches Heart disease Hyperlipemia Irritable bowel disease Irritable bowel syndrome with diarrhea On supplemental oxygen therapy 3L/NC per day, 5L/NC per night Stroke ([facility]) most recent 2014 6 total strokes, right facial drooping, left sided weakness 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 performed by Edgardo Torres MD at ENDO/GI [place] SIGMOIDOSCOPY FLX W/BIOPSY SINGLE/MULTIPLE 09/26/2015 SIGMOIDOSCOPY BIOPSY performed by Edgardo Torres MD at ENDO/GI HX CARPAL TUNNEL RELEASE Bilateral 2017 and "nerve damage" repair per elbows [place] RMVL/REVJ SLING STRESS INCONTINENCE N/A 06/13/2017 URETHROLYSIS, INCISION OF URETHRAL SLING, CYSTOSCOPY performed by Balbina Garcia MD at Main OR/Periop KNEE SURGERY 07/16/2017 ELBOW SURGERY 09/08/2017 ABLATION OF DYSRHYTHMIC FOCUS ? 2016 or 2017 done at [facility] EPIDURAL BLOCK HX CERVICAL FUSION 2004 [...] for this patient. Allergies: Ibuprofen; Triple antibiotic [wgirz-qcxqi-gtsokfi-pramoxine]; and Naproxen sodium Medications: Prescriptions Prior to [...] - 100 MG/DL POC Glucose (Download): 97 (12/16/17 06) No pertinent radiology. Krys Kelly MD ATTESTATION [...] PACU - stable Cristofer Olivares MD Pager [phone] ATTESTATION I performed this procedure with a resident. Staff name: Balbina Garcia MD * Operative Report (Direct Entry) - Balbina Garcia MD - 12/16/2017 8:51 AM CDT Formatting of this note may be different from the original. OPERATIVE REPORT Name: Nara Huizar is a 62 y.o. female : 1955 DATE OF OPERATION: 12/16/2017 Surgeon(s) and Role: * Blabina Garcia MD - Primary * Cristofer Olivares [...] Specimen(s) Removed/Disposition: none Cristofer Olivares MD Pager [phone] ATTESTATION I performed this procedure with a resident. Staff name: Balbina Garcia MD in this encounter Plan of Treatment Date Type Specialty Care Team Description 03/16/2018 Surgery Endoscopy, Physician MANOMETRY ESOPHAGEAL 03/16/2018 Procedure Pass 03/16/2018 Hospital Endoscopy, Physician Nausea and vomiting in Encounter adult 06/16/2018 Surgery Balbina Garcia MD CYSTOURETHROSCOPY WITH [address] INJECTION FOR MS [address] [place] [address] BLADDER (BOTOX 300 UNITS) [phone] 06/16/2018 Procedure Pass 06/16/2018 [facility] Balbina Garcia MD Neurogenic bladder Encounter [address] [place], [place] [phone] as of this encounter Procedures Procedure Name [...] 12/02 TO 12/16 - Tay GUERRA RN ([id number]) POC GLUCOSE 12/16/2017 Results for this 6:26 AM CDT procedure are in the results section. in this encounter Results * ECG-SCAN (12/17/2017 12:08 PM) Narrative Performed At Ordered by an unspecified provider. * POC GLUCOSE (12/16/2017 9:30 AM) Glucose, POC 93 70 - 100 MG/DL [facility] Performing Organization Address City/State/Zipcode Phone Number MAIN LAB [address] [place] [address] * POC GLUCOSE (12/16/2017 6:26 AM) Glucose, POC 97 70 - 100 MG/DL [facility] Performing Organization Address City/State/Zipcode Phone Number [facility] LAB [address] [place] [address] in this encounter Visit Diagnoses Diagnosis Neurogenic [...] mg, Oral, ONCE PRN, 1 dose, Starting 12/16/17 at 0858, Until 12/16/17 at 2359, Pain PO, For Pain Score <4, PACU (only) sodium chloride 0.9 % irrigation bag Given 12/16/2017 3,000 mL INTRA-PROCEDURE MED, Starting Tue 08:51 CDT 12/16/17 at 0851, Until 12/16/17 at 1308, Intra-op in this encounter
--- OUTSIDE RECORDS SUMMARY | 2018-02-10 10:00 | XMS REPORT | Encounter Summary ---
Author Author [facility] Organization [facility] Address Unknown Phone Unavailable Care Team Providers Care Clin Nurse Spec Name Role Phone Apoorva Shane MD Unavailable Edgardo Torres MD Unavailable Amanda Bhandari Unavailable Montana Villasenor MD Unavailable Gilles Ness MD Unavailable Rain Tariq MD Unavailable Harika Hsu MD Unavailable Nayana Mccarty RN Unavailable Unavailable Symone Lee Unavailable Unavailable Crissy Grande NP PCP Lia Griffin MD PCP Encounter Details Date Type Department Care Team Description 10/29/2017 Procedure Pass [facility] Radiology [address] [place] [address] Social History Tobacco Use Types [...] Surgery Balbina Garcia MD CYSTOURETHROSCOPY WITH [address] INJECTION FOR [place] [address] [place] [address] BLADDER (BOTOX 300 UNITS) [phone] 06/16/2018 Procedure Pass 06/16/2018 [facility] Balbina Garcia MD Neurogenic bladder Encounter [address] [place] [address] [phone] as of this encounter Visit Diagnoses Not on filein this encounter
--- OUTSIDE RECORDS SUMMARY | 2018-02-10 10:00 | XMS REPORT | Encounter Summary ---
Author Author [facility] Organization [facility] Address Unknown Phone Unavailable Care Team Providers Care Heavy Equipment Technician Name Role Phone Apoorva Shane MD Unavailable Edgardo Torres MD Unavailable Amanda Bhandari Unavailable Montana Villasenor MD Unavailable Gilles Ness MD Unavailable Rain Tariq MD Unavailable Harika Hsu MD Unavailable Nayana Mccarty RN Unavailable Unavailable Symone Lee Unavailable Unavailable Crissy Grande COMPUTER INFORMATION SYSTEMS INSTRUCTOR PCP Reason for Visit * Reason Comments Follow Up bi-lateral leg weakness Encounter Details Date Type Department Care Team Description 11/13/2017 Office Visit [facility] Alvaro Duval MD Bilateral leg weakness Physicians-Neurology [address] [facility] (Primary Dx); [facility] [place] 3002 Abnormal brain MRI; [address] [place] [address] Secondary parkinsonism, [place], [place] [phone] unspecified secondary [id number] Parkinsonism type ([facility]) [phone] Radames Roberts MD [address] [place], [place] [id number] Social History Tobacco Use Types Packs/Day Years [...] Allergies Allergen Reactions Ibuprofen RASH Triple Antibiotic [Pocpu-Jgfme-Cavesox-Pramoxine] RASH Naproxen Sodium NAUSEA ONLY Past Medical History: Diagnosis Date Acid reflux controlled by protonix Afib ([facility]) Alzheimer disease 2004 Anxiety disorder Arthritis Asthma Colon polyps COPD (chronic obstructive pulmonary disease) ([facility]) Depression DM (diabetes mellitus) ([facility]) last A1C 5 Dyslipidemia Gastroparesis Generalized headaches Heart disease Hyperlipemia Irritable bowel disease Irritable bowel syndrome with diarrhea On supplemental oxygen therapy 3L/NC per day, 5L/NC per night Stroke ([facility]) most recent 2014 6 total strokes, right facial drooping, left sided weakness and 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 in this encounter Plan of Treatment Date Type Specialty Care Team Description 03/16/2018 Surgery Endoscopy, Physician MANOMETRY ESOPHAGEAL 03/16/2018 Procedure Pass 03/16/2018 Hospital Endoscopy, Physician Nausea and vomiting in Encounter adult 06/16/2018 Surgery Balbina Garcia MD CYSTOURETHROSCOPY WITH [address] INJECTION FOR [place] [address] [place] [address] BLADDER (BOTOX 300 UNITS) [phone] 06/16/2018 Procedure Pass 06/16/2018 [facility] Balbina Garcia MD Neurogenic bladder Encounter [address] [place] [address] [place], [place] [id number] as of this encounter Visit Diagnoses Diagnosis Bilateral leg weakness - Primary Other musculoskeletal symptoms referable to limbs Abnormal brain MRI Nonspecific (abnormal) findings on radiological and other examination of skull and head Secondary parkinsonism, unspecified secondary Parkinsonism type (HCC)
--- OUTSIDE RECORDS SUMMARY | 2018-02-10 10:00 | XMS REPORT | Encounter Summary ---
Author Author [facility] Organization [facility] Address Unknown Phone Unavailable Care Team Providers Care Crown Attacher Name Role Phone Apoorva Shane MD Unavailable Edgardo Torres MD Unavailable Amanda Bhandari Unavailable Montana Villasenor MD Unavailable Gilles Ness MD Unavailable Rain Tariq MD Unavailable Harika Hsu MD Unavailable Nayana Mccarty RN Unavailable Unavailable Symone Lee Unavailable Unavailable Crissy Grande TURRET LATHE TENDER PCP Reason for Visit * Reason Comments Chronic Kidney Disease Encounter Details Date Type Department Care Team Description 11/13/2017 Office Visit [facility] Alvaro Duval MD Hematuria, unspecified Physicians - Internal [address] type (Primary Dx) Medicine [place] [address] [place] [address] Pavilion Level 4C [phone] [place] [address] Social History Tobacco Use Types [...] the Toprol, following the instructions of her guide winder. No gross hematuria Review of Systems Constitutional: [...] Physician MANOMETRY ESOPHAGEAL 03/16/2018 Procedure Pass 03/16/2018 [facility] Endoscopy, Physician Nausea and vomiting in Encounter adult 06/16/2018 Surgery Balbina Garcia MD CYSTOURETHROSCOPY WITH [address] INJECTION FOR [place] [address] [place] [address] BLADDER (BOTOX 300 UNITS) [phone] 06/16/2018 Procedure Pass 06/16/2018 [facility] Balbina Garcia MD Neurogenic bladder Encounter [address] [place] [address] [place] [address] [phone] as of this encounter Procedures Procedure Name [...] Specimen Urine - Urine Performing Organization Address [place] [place] [facility] [address] [place] [address] * POC URINE DIPSTICK AUTO READ (11/13/2017) Urine Glucose POC norm IN CLINIC Urine Bilirubin POC neg IN CLINIC Urine Ketone POC neg IN CLINIC Urine Specific Craig 1.005 IN CLINIC POC Urine Blood POC 50 IN CLINIC Urine PH POC 6 IN CLINIC Urine Protein POC neg IN CLINIC Urine Urobilinogen POC norm IN CLINIC Urine Nitrite POC neg IN CLINIC Urine Leukocytes POC neg IN CLINIC Color,UA IN CLINIC Turbidity,UA IN CLINIC Specimen Urine Performing Organization Address [place] [place]IC in this encounter Visit Diagnoses Diagnosis Hematuria, unspecified type - Primary
--- OUTSIDE RECORDS SUMMARY | 2018-02-10 10:00 | XMS REPORT | Encounter Summary ---
Author Author [facility] Organization [facility] Address Unknown Phone Unavailable Care Team Providers Care Tap Puller Name Role Phone Apoorva Shane MD Unavailable Edgardo Torres MD Unavailable Amanda Bhandari Unavailable Montana Villasenor MD Unavailable Gilles Ness MD Unavailable Rain Tariq MD Unavailable Harika Hsu MD Unavailable Nayana Mccarty RN Unavailable Unavailable Symone Lee Unavailable Unavailable Crissy Grande NP PCP Lia Griffin MD PCP Encounter Details Date Type Department Care Team Description 10/29/2017 Procedure Pass [facility] Radiology [address] [place] [address] Social History Tobacco Use Types [...] Surgery Balbina Garcia MD CYSTOURETHROSCOPY WITH [address] INJECTION FOR [place] [address] [place] [address] BLADDER (BOTOX 300 UNITS) [phone] 06/16/2018 Procedure Pass 06/16/2018 [facility] Balbina Garcia MD Neurogenic bladder Encounter [address] [place] [address] [place] [address] [phone] as of this encounter Visit Diagnoses Not on filein this encounter
--- OUTSIDE RECORDS SUMMARY | 2018-02-10 10:00 | XMS REPORT | Encounter Summary ---
Author Author [facility] Organization [facility] Address Unknown Phone Unavailable Care Team Providers Care Manager Bilingual Name Role Phone Apoorva Shane MD Unavailable Edgardo Torres MD Unavailable Amanda Bhandari Unavailable Montana Villasenor MD Unavailable Gilles Ness MD Unavailable Rain Tariq MD Unavailable Harika Hsu MD Unavailable Nayana Mccarty RN Unavailable Unavailable Symone Lee Unavailable Unavailable Crissy Grande COMMUNITY ORGANIZATION AIDE PCP Reason for Visit * Reason Comments Patient Questions Encounter Details Date Type Department Care Team Description 12/03/2017 Telephone [facility] Benito Albrecht MD Patient Questions Physicians [address] [facility] [place] [address] Pavilion Level [address]B [place] [address] [address] [facility] [phone] [place] [address] Social History Tobacco Use Types [...] encounter Miscellaneous Notes * Telephone Encounter - Rosa Isela SilvaJERMAIN - 12/10/2017 1:47 PM CDT Pt left detailed msg requesting address to facility for 01/02/18 procedure. Returned pts call and provided address to ([address] [facility] [address]) Pt verbalized understanding. * Telephone Encounter - RicardoJoseRosa IselaJERMAIN - 12/03/2017 3:07 PM CDT Returned pts call who requested to know the first name of Dr. Albrecht. Information provided to pt no further f/u needed at this time. in this encounter Plan of Treatment Date Type Specialty Care Team Description 03/16/2018 Surgery Endoscopy, Physician MANOMETRY ESOPHAGEAL 03/16/2018 Procedure Pass 03/16/2018 [facility] Endoscopy, Physician Nausea and vomiting in Encounter adult 06/16/2018 Surgery Balbina Garcia MD CYSTOURETHROSCOPY WITH [address] INJECTION FOR [place] [address] [place] [address] BLADDER (BOTOX 300 UNITS) [phone] 06/16/2018 Procedure Pass 06/16/2018 [facility] Balbina Garcia MD Neurogenic bladder Encounter [address] [place] [address] [place] [address] [phone] as of this encounter Visit Diagnoses Not on filein this encounter
--- OUTSIDE RECORDS SUMMARY | 2018-02-10 10:00 | XMS REPORT | Encounter Summary ---
Author Author [facility] Organization [facility] Address Unknown Phone Unavailable Care Team Providers Care Automobile Service Station Manager Name Role Phone Apoorva Shane MD Unavailable Edgardo Torres MD Unavailable Amanda Bhandari Unavailable Montana Villasenor MD Unavailable Gilles Ness MD Unavailable Rain Tariq MD Unavailable Harika Hsu MD Unavailable Nayana Mccarty RN Unavailable Unavailable Symone Lee Unavailable Unavailable Crissy Grande TRACK WATCHMAN PCP Encounter Details Date Type Department Care Team Description 11/17/2017 Documentation [facility] Radames Newby MD Physicians-Neurology [address] [facility] [place] [address] [address] [facility] [phone] [place] [address] Social History Tobacco Use Types [...] Progress Notes * Radames Newby MD - 11/17/2017 2:51 PM CDT [...] Surgery Balbina Garcia MD CYSTOURETHROSCOPY WITH [address] INJECTION FOR [place] [address] [place] [address] BLADDER (BOTOX 300 UNITS) [phone] 06/16/2018 Procedure Pass 06/16/2018 [facility] Balbina Garcia MD Neurogenic bladder Encounter [address] [place] [address] [place] [address] [phone] as of this encounter Visit Diagnoses Not on filein this encounter
--- OUTSIDE RECORDS SUMMARY | 2018-02-10 10:00 | XMS REPORT | Encounter Summary ---
Author Author [facility] Organization [facility] Address Unknown Phone Unavailable Care Team Providers Care Stone Splitter Name Role Phone Apoorva Shane MD Unavailable Edgardo Torres MD Unavailable Amanda Bhandari Unavailable Montana Villasenor MD Unavailable Gilles Ness MD Unavailable Rain Tariq MD Unavailable Harika Hsu MD Unavailable Nayana Mccarty RN Unavailable Unavailable Symone Lee Unavailable Unavailable Crissy Grande NP PCP Encounter Details Date Type Department Care Team Description 11/13/2017 [facility] Alvaro Duval MD Hematuria, unspecified Encounter [facility]st [place] [address] [place] [address] [place] [address] [place] [address] [phone] Social History Tobacco Use Types Packs/Day Years [...] 11/21/2017 25 mg extended release daily. tablet nystatin (NYSTOP) 100,000 Apply topically to 30 g 0 07/09/2017 unit/g topical affected area four times powderIndications: Yeast daily. dermatitis ranitidine(+) (ZANTAC) Take one tablet by mouth 60 tablet 3 201701/06/2018 300 mg tablet midday and one at bedtime. as of this encounter Plan of Treatment Date Type Specialty Care Team Description 03/16/2018 Surgery Endoscopy, Physician MANOMETRY ESOPHAGEAL 03/16/2018 Procedure Pass 03/16/2018 [facility] Endoscopy, Physician Nausea and vomiting in Encounter adult 06/16/2018 Surgery Balbina Garcia MD CYSTOURETHROSCOPY WITH [address] INJECTION FOR [place] [address] [place] [address] BLADDER (BOTOX 300 UNITS) [phone] 06/16/2018 Procedure Pass 06/16/2018 [facility] Balbina Garcia MD Neurogenic bladder Encounter [address] [place] [address] [phone] as of this encounter Procedures Procedure Name [...] Address City/State/Zipcode Phone Number [facility] [address] [place] [address] in this encounter Visit Diagnoses Diagnosis Hematuria, unspecified type Admitting Diagnoses Diagnosis Hematuria, unspecified
--- OUTSIDE RECORDS SUMMARY | 2018-02-10 10:00 | XMS REPORT | Encounter Summary ---
Author Author [facility] Organization [facility] Address Unknown Phone Unavailable Care Team Providers Care Form Maker Plaster Name Role Phone Apoorva Shane MD Unavailable Edgardo Torres MD Unavailable Amanda Bhandari Unavailable Montana Villasenor MD Unavailable Gliles Ness MD Unavailable Rain Tariq MD Unavailable Harika Hsu MD Unavailable Nayana Mccarty RN Unavailable Unavailable Symone Lee Unavailable Unavailable Crissy Grande SALES REPRESENTATIVE ELECTRIC SERVICE PCP Reason for Referral * Radiology Services Status Reason Specialty Diagnoses / Referred By Referred To Procedures Contact Contact New Request Radiology Diagnoses Radames Newby, Bilateral leg MD weakness [address] [place], [place] MRI C-SPINE WO/W [address] CONTRAST * Radiology Services Status Reason Specialty Diagnoses / Referred By Referred To Procedures Contact Contact New Request Radiology Diagnoses Joseam, Radames, Bilateral leg MD weakness [address] [place], [place] MRI C-SPINE WO/W [address] CONTRAST * Radiology Services Status Reason Specialty Diagnoses / Referred By Referred To Procedures Contact Contact No Auth Needed Radiology Diagnoses Radames Newby, Ca2 Mri Bilateral leg [address] [facility] weakness [address] [place] [address] MRI HEAD WO/W [address] Phone: CONTRAST CHG MRI SPINAL [phone] CANAL CERVICAL Fax: W/O & W/CONTR [phone] MATRL * Radiology Services Status Reason Specialty Diagnoses / Referred By Referred To Procedures Contact Contact No Auth Needed Radiology Diagnoses Radames Newby Ca2 Mri Bilateral leg [address] [place] [address] [place] [address] MRI HEAD WO/W [address]13[address] Phone: CONTRAST CHG MRI SPINAL [phone] CANAL CERVICAL Fax: W/O & W/CONTR [phone] MATRL Reason for Visit * Radiology Services Status Reason Specialty Diagnoses / Referred By Referred To Procedures Contact Contact No Auth Needed Radiology Diagnoses Radames Newby Ca2 Mri Bilateral leg [address] [place] [address] [place] [address] MRI HEAD WO/W [address]673 Phone: CONTRAST CHG MRI SPINAL [phone] CANAL CERVICAL Fax: W/O & W/CONTR [phone] MATRL Encounter Details Date Type Department Care Team Description 11/13/2017 Hospital [facility] Radames Newby MD Encounter Hospital Radiology [address] [place] [address] FLOOR B [phone] [place] [address] [phone] Social History Tobacco Use Types Packs/Day Years [...] Surgery Balbina Garcia MD CYSTOURETHROSCOPY WITH [address] INJECTION FOR [place] [address] [place] [address] BLADDER (BOTOX 300 UNITS) [phone] 06/16/2018 Procedure Pass 06/16/2018 [facility] Balbina Garcia MD Neurogenic bladder Encounter [address] [place] [address] [phone] as of this encounter Procedures Procedure Name [...] City/State/Zipcode Phone Number [facility] RESULTS * POC CREATININE, RAD (11/13/2017 1:44 PM) Creatinine, POC 0.5 0.4 - 1.00 MG/DL [facility] Performing Organization Address [facility] [address] [place] [address] in this encounter Visit Diagnoses Diagnosis Bilateral [...]
--- OUTSIDE RECORDS SUMMARY | 2018-02-10 10:02 | XMS REPORT ---
Author Author Israel Alvarez Organization [facility] Address [address] [place], [place] [id number] Care Team Providers Care Forepart Laster Name Role Phone Israel Alvarez PCP Allergies and Adverse Reactions Name Reaction Notes ibuprofen rash Triple Antibiotic rash Plan of Treatment Planned Activity Comments Planned Date Planned Time Plan/Goal NEEDLE ELECTROMYOGRAPHY FOR GUIDANCE IN CONJUNCTION WITH CHEMODE 2017 12:00 AM IM Injection 08/02/2014 12:00 AM [...] by oral route once daily at bedtime alendronate 70 mg oral tablet take 1 tablet (70 mg) by oral route once weekly in the morning, at least 30 min before first food, beverage, or medication of day WelChol 625 mg oral tablet take 4 tablets by oral route daily Abilify 10 mg oral tablet take 1 tablet (10 mg) by oral route once daily gabapentin 400 mg oral capsule take 1 capsule (400 mg) by oral route 3 times per day Zyrtec 10 mg oral tablet take 1 tablet (10 mg) by oral route once daily diphenoxylate-atropine 2.5-0.025 mg oral tablet take 1 tablet by oral route daily lamotrigine 25 mg oral tablet take 1 tablet by oral route daily Xifaxan 550 mg oral tablet take 1 tablet (550 mg) by oral route 3 times per day Vitamin D3 400 unit oral capsule take 1 capsule by oral route daily clonazepam 1 mg oral tablet take 1 tablet by oral route daily Farxiga 5 mg oral tablet take 1 tablet (5 mg) by oral route once daily in the morning oxybutynin chloride 5 mg oral tablet take 1 tablet (5 mg) by oral route 2 times per day Remeron 30 mg oral tablet take 1.5 tablets by oral route daily furosemide 40 mg oral tablet take 1 tablet (40 mg) by oral route once daily albuterol sulfate 1.25 mg/3 mL inhalation solution for nebulization inhale 3 milliliters (1.25 mg) via nebulizer by inhalation route 3 times per day Botox 200 unit injection recon soln 01/06/2018 04/06/2018 INject 155 units into 31 sites as per migraine prophylaxis protocol. Injection done by experienced provider. Aimovig Autoinjector 70 mg/mL subcutaneous auto-injector 01/21/20182017 inject 1 milliliter (70 mg) by subcutaneous route once a month in the abdomen, thigh, or outer area of upper arm for 30 days Name Start Date Expiration Date SIG Comments [...] 155b Units today. Need 1 Vial 1 [id number] hydrocodone-acetaminophen 7.5-500 mg oral tablet 08/06/2012 09/05/2012 take 1 tablet by oral route every 4-6 hours as needed for pain for 30 days sumatriptan succinate 6 mg/0.5 mL subcutaneous cartridge 08/19/2012 09/18/2012 INJECT 1 DOSE (6 MG/0.5 ML) - MAY REPEAT IN 1 HOUR IF PAIN RETURNS OR INCREASES IN SEVERITY (MAX OF 2 DOSES IN 24 HOURS) Fiorinal-Codeine #3 [id number] mg oral capsule 04/30/2012 05/11/2012 take 1 capsule (00-05-525-40 mg) by oral route every 4 hours [...] day for 30 days as directed on mnia simon given to patient Analy with Codeine 17-643-43-30 mg oral capsule 04/13/2013 08/03/2013 take 1 [...] HC BMI BSA BMI Percentile O2 Sat(%) 02/04/2018 8:32:00 AM 120 mmHg 70 mmHg 80 bpm 97.7 F 170 lbs 64 in 29.1801 kg/m 1.866 m 93 % 08/06/2017 9:37:00 AM 120 mmHg 60 mmHg 82 bpm 98.1 F 155.375 lbs 64 in 26.67 kg/m2 1.78 m2 95 % 04/29/2017 8:24:00 AM 118 mmHg 76 mmHg 93 bpm 24 rpm 98.1 F 154.5 lbs 64 in 26.5196 kg/m 1.7789 m 95 % 03/14/2017 8:14:00 AM 122 mmHg [...] F 126 lbs 64 in 21.63 kg/m2 1.6065 m 10/29/2013 10:14:00 AM 120 mmHg 60 mmHg 50 bpm 16 rpm 97 F 135.25 lbs 64 in 23.2154 kg/m 1.66 m2 10/05/2013 8:41:00 AM 122 mmHg 68 mmHg 56 bpm 16 rpm 96.4 F 134.375 lbs 64 in 23.07 kg/m2 1.659 m 09/28/2013 8:32:00 AM 100 mmHg 60 mmHg 66 bpm 16 rpm 96.8 F 133 lbs 64 in 22.8292 kg/m 1.65 m2 08/03/2013 10:00:00 AM 132 mmHg 80 mmHg 78 bpm 18 rpm 97.6 F 137 lbs 64 in 23.52 kg/m2 1.6751 m 05/27/2013 8:19:00 AM 104 mmHg [...] 1.88 m2 Social History Name Description Comments Alcohol Never Tobacco Current every day smoker History of Procedures Date Ordered Description Order Status 01/03/2015 12:00 AM Botox Toxin Type A, 1 unit [id number] Reviewed 01/03/2015 12:00 AM CHEMODENERV MUSC MIGRAINE Reviewed 02/02/2015 12:00 AM Pain Management Reviewed 02/02/2015 12:00 AM Occupational Therapy Consult Reviewed 02/02/2015 12:00 AM Kenalog, Per 10 Mg [facility]#0613-7808-06 Reviewed 02/02/2015 12:00 AM DRAIN/INJ JOINT/BURSA W/O US Reviewed 04/10/2015 12:00 AM Botox Toxin Type A, 1 unit [id number] Reviewed 04/10/2015 12:00 AM CHEMODENERV MUSC MIGRAINE Reviewed 11/17/2015 12:00 AM INJ TRIGGER POINT 1/2 MUSCL Reviewed 08/06/2011 12:00 AM N BLOCK INJ OCCIPITAL Reviewed 08/06/2011 12:00 AM Phenergan 25 Mg Im [facility] [address]-43 (Physiatry) Reviewed 08/06/2011 12:00 AM Toradol 15 Mg,[facility]#[id number] Reviewed 08/20/2011 12:00 AM N BLOCK INJ OCCIPITAL Reviewed 08/20/2011 12:00 AM INJECT TRIGGER POINTS 3/> Reviewed 09/17/2011 12:00 AM INJECT TRIGGER POINTS 3/> Reviewed 09/17/2011 12:00 AM N BLOCK INJ OCCIPITAL Reviewed 10/01/2011 12:00 AM INJECT TRIGGER POINTS 3/> Reviewed 10/15/2011 12:00 AM INJECT TRIGGER POINTS 3/> Reviewed 10/15/2011 12:00 AM Imitrex 6mg [facility] #80731-379-80 Reviewed 10/15/2011 12:00 AM Imitrex, 6mg [facility]#: 6167-8560-50 Reviewed 11/04/2011 12:00 AM INJECT TRIGGER POINTS 3/> Reviewed 11/04/2011 12:00 AM Imitrex 6mg [facility] #09111-667-86 Reviewed 11/04/2011 12:00 AM N BLOCK INJ OCCIPITAL Reviewed 11/04/2011 12:00 AM DRAIN/INJ JOINT/BURSA W/O US Reviewed 12/05/2011 12:00 AM INJECT TRIGGER POINTS 3/> Reviewed 12/05/2011 12:00 AM N BLOCK INJ OCCIPITAL Reviewed 12/19/2011 12:00 AM INJECT TRIGGER POINTS 3/> Reviewed 12/19/2011 12:00 AM Imitrex 6mg [facility] #80481-786-96 Reviewed 12/19/2011 12:00 AM THER/PROPH/DIAG INJ SC/IM Reviewed 12/19/2011 12:00 AM Imitrex, 6mg [facility]#: 0464-1114-74 Reviewed 01/02/2012 12:00 AM INJECT TRIGGER POINTS 3/> Reviewed 01/02/2012 12:00 AM Imitrex 6mg [facility] #70275-303-37 Reviewed 01/02/2012 12:00 AM THER/PROPH/DIAG INJ SC/IM Reviewed 01/02/2012 12:00 AM Imitrex, 6mg [facility]#: 2425-9374-89 Reviewed 01/02/2012 12:00 AM N BLOCK INJ [...] SC/IM Reviewed 02/06/2012 12:00 AM Imitrex, 6mg [facility]#: 3147-4413-79 Reviewed 02/06/2012 12:00 AM Imitrex 6mg [facility] #10438-647-24 Reviewed 02/06/2012 12:00 AM Therapeutic, prophylactic or diagnostic injection (specify substance or drug); subcutaneous or intramuscular Reviewed 03/03/2012 12:00 AM THER/PROPH/DIAG INJ SC/IM Reviewed 03/03/2012 12:00 AM Imitrex, 6mg [facility]#: 8489-6223-52 Reviewed 03/03/2012 12:00 AM N BLOCK OTHER PERIPHERAL Reviewed 03/03/2012 12:00 AM INJECT TRIGGER POINTS 3/> Reviewed 03/17/2012 12:00 AM THER/PROPH/DIAG INJ SC/IM Reviewed 03/17/2012 12:00 AM Imitrex, 6mg ND#: 5381-6139-25 Reviewed 03/17/2012 12:00 AM Norflex, Up to 60 Mg ND#63480-363-38 Reviewed 03/26/2012 12:00 AM INJECT TRIGGER POINTS 3/> Reviewed 03/26/2012 12:00 AM INJECTION,MARCAINE/BUPIVACAINJ [facility] [address]-70 ([place]) Reviewed 03/26/2012 12:00 AM Imitrex 6mg [facility] #32789-823-97 Reviewed 03/26/2012 12:00 AM Norflex, Up to 60 Mg [facility]#62630-668-98 Reviewed 04/29/2017 12:00 AM CHEMODENERV MUSC MIGRAINE Reviewed 04/14/2012 12:00 AM THER/PROPH/DIAG INJ SC/IM Reviewed 04/14/2012 12:00 AM Imitrex, 6mg [facility]#: 6200-0692-01 Reviewed 04/14/2012 12:00 AM THER/PROPH/DIAG INJ SC/IM Reviewed 04/14/2012 12:00 AM Norflex, Up to 60 Mg [facility]#23426-929-38 Reviewed 04/14/2012 12:00 AM N BLOCK INJ OCCIPITAL Reviewed 04/14/2012 12:00 AM INJECT TRIGGER POINTS 3/> Reviewed 04/14/2012 12:00 AM Bupivicaine, 30 ml [facility]#0201-2044-92 Reviewed 05/06/2012 12:00 AM Bupivicaine, 30 ml [facility]#8549-9912-34 Reviewed 05/06/2012 12:00 AM INJECT TRIGGER POINTS 3/> Reviewed 05/06/2012 12:00 AM Norflex, Up to 60 Mg [facility]#65422-578-79 Reviewed 05/06/2012 12:00 AM Imitrex 6mg [facility] #59531-081-86 Reviewed 05/06/2012 12:00 AM N BLOCK INJ OCCIPITAL Reviewed 05/06/2012 12:00 AM Kenalog, Per 10 Mg [facility]#6342-6679-57 Reviewed 05/21/2012 12:00 AM Truman Chemodenervation muscle(s); muscle(s) innervated by facial Reviewed 05/21/2012 12:00 AM TRUMAN CHEMODENERVATION MUSCLE(S); NECK MUSCLE(S)(EG, FOR SPASMODIC Reviewed 05/21/2012 12:00 AM BOTULINUM TOXIN TYPE A, PER UNIT-Botox [facility] [id number] Huizar Reviewed 06/03/2012 12:00 AM INJECT TRIGGER POINTS 3/> Reviewed 06/03/2012 12:00 AM Bupivicaine, 30 ml [facility]#9519-6853-78 Reviewed 06/03/2012 12:00 AM Imitrex 6mg [facility] #69742-759-64 Reviewed 06/03/2012 12:00 AM Norflex, Up to 60 Mg [facility]#70908-725-05 Reviewed 06/03/2012 12:00 AM THER/PROPH/DIAG INJ SC/IM Reviewed 06/03/2012 12:00 AM Imitrex, 6mg [facility]#: 9197-8860-25 Reviewed 06/03/2012 12:00 AM Norflex, Up to 60 Mg [facility]#77697-705-79 Reviewed 08/06/2017 12:00 AM CHEMODENERV MUSC MIGRAINE Reviewed 08/06/2017 12:00 AM Destruction of nerve by injection of botulinum toxin Reviewed 08/06/2017 12:00 AM Destruction of spinal cervical nerve by injection of botulinum toxin Reviewed 07/01/2012 12:00 AM INJECT TRIGGER POINTS 3/> Reviewed 07/01/2012 12:00 AM Bupivicaine, 30 ml ND#0870-4286-39 Reviewed 07/01/2012 12:00 AM N BLOCK INJ OCCIPITAL Reviewed 07/07/2012 12:00 AM THER/PROPH/DIAG INJ SC/IM Reviewed 07/07/2012 12:00 AM Imitrex, 6mg [facility]#: 2805-9548-52 Reviewed 07/07/2012 12:00 AM Toradol 15 Mg ND#8711-7208-77 Reviewed 07/15/2012 12:00 AM INJECT TRIGGER POINTS 3/> Reviewed 07/15/2012 12:00 AM INJECTION,MARCAINE/BUPIVACAINJ [facility] [address]-55 ([place]) Reviewed 07/15/2012 12:00 AM MASSAGE THERAPY Reviewed 07/15/2012 12:00 AM THER/PROPH/DIAG INJ SC/IM Reviewed 07/15/2012 12:00 AM Imitrex, 6mg [facility]#: 2405-3586-28 Reviewed 07/15/2012 12:00 AM Norflex, Up to 60 Mg [facility]#98950-965-71 Reviewed 07/15/2012 12:00 AM Imitrex 6mg [facility] #58169-352-84 Reviewed 07/15/2012 12:00 AM Norflex, Up to 60 Mg [facility]#30896-229-45 Reviewed 08/06/2012 12:00 AM INJECT TRIGGER POINTS 3/> Reviewed 08/06/2012 12:00 AM N BLOCK INJ OCCIPITAL Reviewed 08/06/2012 12:00 AM THER/PROPH/DIAG INJ SC/IM Reviewed 08/06/2012 12:00 AM Imitrex, 6mg [facility]#: 5981-1464-02 Reviewed 08/06/2012 12:00 AM Norflex, Up to 60 Mg [facility]#40826-112-85 Reviewed 11/06/2017 12:00 AM CHEMODENERV MUSC MIGRAINE Reviewed 11/06/2017 12:00 AM GUIDE NERV DESTR NEEDLE EMG Reviewed 11/06/2017 12:00 AM Destruction of nerve by injection of botulinum toxin Reviewed 11/06/2017 12:00 AM Destruction of nerve by injection of botulinum toxin Reviewed 08/19/2012 12:00 AM BOTULINUM TOXIN TYPE A, PER UNIT-Botox [facility] [id number] Huizar Reviewed 08/19/2012 12:00 AM Truman Chemodenervation muscle(s); muscle(s) innervated by facial Reviewed 08/19/2012 12:00 AM TRUMAN CHEMODENERVATION MUSCLE(S); NECK MUSCLE(S)(EG, FOR SPASMODIC Reviewed 08/19/2012 12:00 AM Imitrex 6mg [facility] #69827-426-07 Reviewed 08/19/2012 12:00 AM Norflex, Up to 60 Mg [facility]#55830-388-43 Reviewed 08/19/2012 12:00 AM THER/PROPH/DIAG INJ SC/IM Reviewed 08/19/2012 12:00 AM Imitrex, 6mg ND#: 3321-4677-19 Reviewed 08/19/2012 12:00 AM Norflex, Up to 60 Mg ND#32803-439-97 Reviewed 09/02/2012 12:00 AM Bupivicaine, 30 ml [facility]#2034-1377-99 Reviewed 09/02/2012 12:00 AM INJECT TRIGGER POINTS 3/> Reviewed 09/02/2012 12:00 AM Imitrex 6mg [place] #34518-342-13 Reviewed 09/02/2012 12:00 AM Norflex, Up to 60 Mg [facility]#17031-348-97 Reviewed 09/02/2012 12:00 AM Imitrex, 6mg ND#: 2770-2627-91 Reviewed 09/16/2012 12:00 AM THER/PROPH/DIAG INJ SC/IM Reviewed 09/16/2012 12:00 AM Norflex, Up to 60 Mg [facility]#79687-117-02 Reviewed 09/16/2012 12:00 AM INJECT TRIGGER POINTS 3/> Reviewed 09/16/2012 12:00 AM Imitrex 6mg ND #63147-190-90 Reviewed 09/16/2012 12:00 AM Norflex, Up to 60 Mg ND#86832-476-54 Reviewed 11/17/2012 12:00 AM Imitrex 6mg ND #30823-270-28 Reviewed 11/17/2012 12:00 AM THER/PROPH/DIAG INJ SC/IM Reviewed 11/17/2012 12:00 AM Toradol 30 Mg ND#8593-9560-30 Reviewed 11/17/2012 12:00 AM Bupivicaine, 30 ml ND#8882-8534-50 Reviewed 11/17/2012 12:00 AM INJECT TRIGGER POINTS 3/> Reviewed 11/17/2012 12:00 AM Imitrex 6mg ND #73832-679-91 Reviewed 11/17/2012 12:00 AM Norflex, Up to 60 Mg ND#57195-697-47 Reviewed 11/17/2012 12:00 AM N BLOCK INJ OCCIPITAL Reviewed 12/01/2012 12:00 AM INJECT TRIGGER POINTS 3/> Reviewed 05/27/2013 12:00 AM THER/PROPH/DIAG INJ SC/IM Reviewed 05/27/2013 12:00 AM Norflex, Up to 60 Mg [facility]#26256-296-87 Reviewed 06/07/2013 12:00 AM INJECT TRIGGER POINTS 3/> Reviewed 06/24/2013 12:00 AM THER/PROPH/DIAG INJ SC/IM Reviewed 06/24/2013 12:00 AM Norflex, Up to 60 Mg [facility]#72129-147-02 Reviewed 06/24/2013 12:00 AM INJECT TRIGGER POINTS 3/> Reviewed 06/24/2013 12:00 AM N BLOCK INJ OCCIPITAL Reviewed 07/08/2013 12:00 AM INJECT TRIGGER POINTS 3/> Reviewed 07/08/2013 12:00 AM THER/PROPH/DIAG INJ SC/IM Reviewed 07/08/2013 12:00 AM Norflex 30 mg IM ND#58569-319-47 Reviewed 07/08/2013 12:00 AM THER/PROPH/DIAG INJ SC/IM Reviewed 07/22/2013 12:00 AM INJECT TRIGGER POINTS 3/> Reviewed 07/22/2013 12:00 AM THER/PROPH/DIAG INJ SC/IM Reviewed 07/22/2013 12:00 AM Norflex 30 mg IM [place]#45915-899-85 Reviewed 07/22/2013 12:00 AM THER/PROPH/DIAG INJ SC/IM Reviewed 08/03/2013 12:00 AM INJ TRIGGER POINT 1/2 MUSCL Reviewed 08/03/2013 12:00 AM THER/PROPH/DIAG INJ SC/IM Reviewed 08/03/2013 12:00 AM Norflex 30 mg IM [facility]#85409-719-44 Reviewed 08/03/2013 12:00 AM Imitrex, 6mg [facility]#: 2134-3869-71 Reviewed 08/24/2013 12:00 AM INJECT TRIGGER POINTS 3/> Reviewed 08/24/2013 12:00 AM THER/PROPH/DIAG INJ SC/IM Reviewed 08/24/2013 12:00 AM Norflex 30 mg IM [facility]#73103-057-93 Reviewed 09/07/2013 12:00 AM INJECT TRIGGER POINTS 3/> Reviewed 09/07/2013 12:00 AM THER/PROPH/DIAG INJ SC/IM Reviewed 09/07/2013 12:00 AM Norflex 30 mg IM [facility]#39613-694-85 Reviewed 09/21/2013 12:00 AM Botox Toxin Type A, 1 unit [id number] Reviewed 09/21/2013 12:00 AM CHEMODENERV MUSC MIGRAINE Reviewed 09/23/2013 12:00 AM INJECT TRIGGER POINTS 3/> Reviewed 11/08/2013 12:00 AM N BLOCK INJ OCCIPITAL Reviewed 11/08/2013 12:00 AM Kenalog, Per 10 Mg [facility]#8781-1673-90 RHC Medicare Reviewed 12/21/2013 12:00 AM Botox Toxin Type A, 1 unit [id number] Reviewed 12/21/2013 12:00 AM CHEMODENERV MUSC MIGRAINE Reviewed 03/25/2014 12:00 AM THER/PROPH/DIAG INJ SC/IM Reviewed 03/25/2014 12:00 AM Norflex, Up to 60 Mg [facility]#05360-134-96 Reviewed 05/17/2014 12:00 AM Interventional Pain Consult Reviewed 05/17/2014 12:00 AM Occupational Therapy Consult Reviewed 07/12/2014 12:00 AM DRAIN/INJ JOINT/BURSA W/O US Reviewed 07/12/2014 12:00 AM Kenalog, Per 10 Mg [facility]#7494-5215-27 Reviewed 10/11/2014 12:00 AM Botox Toxin Type A, 1 unit [id number] Reviewed 10/11/2014 12:00 AM CHEMODENERV [facility] MIGRAINE Reviewed Results Summary Not [...] pain Sep 13 2011 8:22AM Headache Sep 2011 2:13PM myofascial [...] 10:04AM Migraine Headache Feb 2013 8:27AM Fibromyalgia b 2013 8:27AM Chronic pain syndrome May 27 [...] b 10 2014 8:56AM Muscle tension headache Feb [...] status migrainosus Nov 06 2017 9: 28AM Chronic migraine w/o aura, intractable, w status migrainosus Feb 04 2018 8: 34AM Payers Insurance Name Company Name Plan Name Plan Number Policy Number Policy Group Number Start Date Medicare Part B [employer] [place] [id number] N/A [facility] [id number] N/A Medicare RHC Medicare RHC [id number] Wednesday, 2011 Medicare Part A Medicare - Lab/Xray [id number] Friday, January 052010 Medicare Part B [employer] [place] [id number] Saturday, February 05, 2011 [place] [employer] [facility] [place] [employer] [place] [id number] N/A History of Encounters Visit Date Visit Type Provider 02/04/2018 Procedures Israel Alvarez DO 11/06/2017 Procedures Israel Alvarez DO 08/06/2017 Procedures Israel Alvarez DO 04/29/2017 Procedures Israel Alvarez DO 03/14/2017 Office visit Israel Alvarez DO 01/31/2017 Procedures Israel Alvarez DO 11/07/2016 Procedures Ivelisse HUNTP 08/08/2016 Procedures Ivelisse HUNTP 05/09/2016 Procedures Ivelisse HUNTP 02/08/2016 Procedures Ivelisse HUNTP 11/17/2015 Office visit Ivelisse LANDAVERDE 11/09/2015 Procedures Ivelisse LANDAVERDE 08/10/2015 Procedures Ivelisse HUNTP 04/10/2015 Procedures Ivelisse [...] Ayers MD 09/16/2012 Office visit Olivia Cisneros SHOE REPAIRER HELPER 09/02/2012 Office visit Olivia Cisneros SHOE REPAIRER HELPER 08/19/2012 Office visit Olivia Cisneros APRN 08/06/2012 Office visit Penny Ayers MD 07/15/2012 Office visit Olivia Cisneros APRN 07/07/2012 Office visit Penny Ayers MD 07/01/2012 Office visit Olivia Cisneros SHOE REPAIRER HELPER 06/03/2012 Office visit Olivia Cisneros SHOE REPAIRER HELPER 05/21/2012 Office visit Penny Ayers MD 05/06/2012 Office visit Olivia Cisneros SHOE REPAIRER HELPER 04/14/2012 Office visit Olivia Cisneros SHOE REPAIRER HELPER 03/26/2012 Office visit Olivia Cisneros SHOE REPAIRER HELPER 03/17/2012 Office visit Penny Ayers MD 03/03/2012 Office visit Olivia Cisneros SHOE REPAIRER HELPER 02/06/2012 Office visit Penny Ayers MD 01/21/2012 [...]
[2018-02-10] MEDS ORDERED: LACTATED RINGERS 1,000 ML IV STA (10:53)
--- OUTSIDE RECORDS SUMMARY | 2018-02-10 10:56 | XMS REPORT ---
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 Active 62597885 Problem Colon polyp K63.5 Active 66710565 Problem Screening breast examination Z12.39 Active 616169254 Problem Bilateral low back pain without sciatica M54.5 Active 268268042 Problem Postmenopausal Z78.0 Active 79212488 Problem Essential tremor G25.0 Active 95861785 Problem Osteopenia M85.80 Active 145176177 Problem Hyperlipidemia E78.5 Active 45147320 Problem Cigarette nicotine dependence without complication F17.210 Active 53674793 Problem Vascular dementia without behavioral disturbance F01.50 Active [id number] Problem Arthritis M19.90 Active 8057132 Problem Chronic atrial fibrillation I48.2 Active 653866870 Problem Dementia without behavioral disturbance, unspecified dementia type F03.90 Active 32716946 Problem Other chronic pancreatitis K86.1 Active 533048214 Problem Xeroderma Q80.9 Active 06290494 Problem Chronic obstructive pulmonary disease with acute lower respiratory infection J44.0 Active 878430491 Problem Type 2 diabetes mellitus with diabetic neuropathy, without long-term current use of insulin E11.40 Active 50907681 Problem Atherosclerosis of [place] artery of both lower extremities with intermittent claudication I70.213 Active 796705812892820 Problem Hammertoe of right foot M20.41 Active 796418623 Problem Hammertoe of left foot M20.42 Active 574909607 Problem Migraine without aura and with status migrainosus, not intractable G43.001 Active 974939827 Problem Migraine without aura and without status migrainosus, not intractable G43.009 Active 172357904 Problem Major depressive disorder, recurrent episode, moderate F33.1 Active 198823082 Problem Unspecified psychosis F29 Active 77840831 Problem Cervicalgia M54.2 Active 5393238291170 Problem Diabetic polyneuropathy associated with type 2 diabetes mellitus E11.42 Active 72400578 Problem COPD (chronic obstructive pulmonary disease) J44.9 Active 90545532 Problem Atherosclerotic heart disease of [place]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 I25.118 Active 1292534022124 Problem Gastroparesis K31.84 Active 895531371 Problem Stress incontinence of urine N39.3 Active 24188859 Problem Osteoporosis M81.0 Active 69823755 Problem Controlled type 2 diabetes mellitus without complication, without long -term current use of insulin E11.9 Active 129396577 Problem Barretts esophagus K22.70 Active 245765526 Problem Chronic fatigue R53.82 Active 39674358 Problem History of common bile duct surgery Z98.89 Active 487732482 Problem Bipolar affective disorder, currently depressed, moderate F31.32 Active 655290774 Problem Generalized anxiety disorder F41.1 Active 861040574 Problem Gastroesophageal reflux disease, esophagitis presence not specified K21.9 Active 998588870 Problem Coronary artery disease involving [place] coronary artery of [place] heart with other form of angina pectoris I25.118 Active 5663881294658 Problem Postconcussion syndrome F07.81 Active 99956011 Problem Chronic pain syndrome G89.4 Active 818748500 Problem Type 2 diabetes mellitus with diabetic peripheral angiopathy without gangrene E11.51 Active 448380953 Problem Paroxysmal atrial fibrillation I48.0 Active 793655454 Problem Unspecified atherosclerosis of [place] arteries of extremities, unspecified extremity I70.209 Active 291604796715642 Problem Acute exacerbation of chronic obstructive pulmonary disease (COPD) J44.1 Active 043852392 Problem Crohn''s disease without complication, unspecified gastrointestinal tract location K50.90 Active 35650510 ALLERGIES No Information ENCOUNTERS Encounter Location Date Diagnosis [facility] [address] [facility] [id number] [address] Feb, [facility] [address] [address] Jan, Gastroesophageal reflux disease, esophagitis presence not specified K21.9 [facility] [address] [facility] [id number] [address] Dec, [facility] [address] [address] Dec, High risk medication use Z79.899 [facility] [address] [address] 285[address] 25 Dec, 2017 [facility] [address] [place] [id number] [place] [address] 72001- 5037 24 Dec, 2017 [facility] [id number] [place] [address] 41817- 0630 Dec, [facility] [id number] [place] [address] 11419- 5227 19 Dec, 2017 [facility] [id number] [place] [address] 46497- 1416 18 Dec, 2017 [facility] [id number] [place] [address] 02302- 8447 14 Dec, 2017 [facility] [address] [place] [address] 02949- 8637 14 Dec, 2017 [facility] [id number] [place] [address] 35917- 6113 13 Dec, 2017 [facility] [address] [address] 8[address] Dec, Type 2 diabetes mellitus with diabetic peripheral angiopathy without gangrene E11.51 ; Contusion of face, initial encounter S00.83XA and Bronchitis J40 [facility] [address] [address] 0848 10 Dec, 2017 [facility] [id number] [place] [address] 58294- 5998 06 Dec, 2017 [facility] [address] [address] 8935 Nov, [facility] [address] [place] [address] 10192- 0039 Nov, Onychomycosis B35.1 ; Hammertoe of left foot M20.42 ; Hammertoe of right foot M20.41 and Type 2 diabetes mellitus with diabetic neuropathy, without long-term current use of insulin E11.40 [facility] [address] [id number] [place] [address] 58517- 5782 Nov, [facility] [address] [place] [id number] [place] [address] 90800- 0018 Nov, Bronchitis J40 [facility] [address] [place] [id number] [place] [address] 17398- 6623 Oct, [facility] [id number] [place] [address] 83220- 7862 Oct, Bipolar affective disorder, currently depressed, moderate F31.32 ; Vascular dementia without behavioral disturbance F01.50 and Generalized anxiety disorder F41.1 [facility] [address] [id number] [place] [address] 44816- 0221 Oct, [facility] [address] [place] [id number] [place] [address] 82861- 4283 Oct, [facility] [address] [place] [id number] [place] [address] 95438- 5826 Oct, Edema of both legs R60.0 [facility] [address] [place] [id number] [place] [address] 70081- 9302 Oct, [facility] [address] [place] [id number] [place] [address] 97073- 2186 Sep, [facility] [id number] [place] [address] 89458- 3885 Sep, [facility] [id number] [place] [address] 32015- 8614 Sep, [facility] [id number] [place] [address] 42743- 9558 Sep, Encounter for well woman exam with routine gynecological exam Z01.419 ; Screening for STDs (sexually transmitted diseases) Z11.3 ; Screening breast examination Z12.31 and Overweight (BMI 25.0-29.9) E66.3 [facility] [address] [place] [address] 08701- 4011 Sep, [facility] [address] [address] 6731 Sep, [facility] [id number] [place] [address] 06086- 4389 Sep, [facility] [address] [id number] [place] [address] 67619- 5292 August, [facility] [id number] [place] [address] 15017- 3081 August, [facility] [id number] [place] [address] 41176- 3264 August, Type 2 diabetes mellitus with diabetic neuropathy, without long-term current use of insulin E11.40 and Sprain of right ankle, unspecified ligament, initial encounter S93.401A [facility] [address] [address]- 8283 August, [facility] [address] [id number] [place] [address] 01251- 9313 August, [facility] [address] [address]- 7115 August, [facility] [address] [place] [address] 12500- 3887 August, Gastroesophageal reflux disease, esophagitis presence not specified K21.9 [facility] [address] [address] 1890 August, [facility] [address] [id number] [place] [address] 49235- 4401 August, [facility] [address] [address]- 3388 August, [facility] [id number] [place] [address] 18949- 8152 August, Type 2 diabetes mellitus with diabetic neuropathy, without long-term current use of insulin E11.40 and Elevated liver enzymes R74.8 [facility] [address] [place] [id number] [place] [address] 57180- 3828 Jul, [facility] [address] [place] [id number] [place] [address] 82254- 1108 Jul, Cough R05 [facility] [address] [place] [id number] [place] [address] 21970- 3258 Jul, [facility] [address] [id number] [place] [address] 72257- 6850 Jul, [facility] [address] [id number] [place] [address] 46524- 5707 Jul, Bipolar affective disorder, currently depressed, moderate F31.32 ; Vascular dementia without behavioral disturbance F01.50 and Generalized anxiety disorder F41.1 [facility] [id number] [place] [address] 28507- 4028 Jul, [facility] [address] [place] [id number] [place] [address] 97457- 7787 Jul, Type 2 diabetes mellitus with diabetic neuropathy, without long-term current use of insulin E11.40 and Elevated liver enzymes R74.8 [facility] [address] [place] [address] 77553- 9138 Jul, [facility] [address] [place] [id number] [place] [address] 13517- 8576 Jul, [facility] [address] [place] [id number] [place] [address] 17000- 1604 Jul, [facility] [address] [place] [id number] [place] [address] 04589- 6316 Jul, Post-menopausal Z78.0 [facility] [address] [place] [id number] [place] [address] 45553- 4937 Jul, Stress incontinence of urine N39.3 [facility] [id number] [place] [address] 77893- 9342 Jul, [facility] [id number] [place] [address] 18424- 6474 Jul, [facility] [id number] [place] [address] 99192- 5380 Jul, Stress incontinence of urine N39.3 and Cough R05 [facility] [id number] [place] [address] 80570- 5371 Jul, [facility] [id number] [place] [address] 48412- 4842 Jul, [facility] [id number] [place] [address] 93485- 4299 Jul, [facility] [id number] [place] [address] 67754- 3204 Jul, Gastroesophageal reflux disease, esophagitis presence not specified K21.9 [facility] [id number] [place] [address] 09392- 7488 Jun, Diabetic polyneuropathy associated with type 2 diabetes mellitus E11.42 [facility] [address] [place] [id number] [place] [address] 78898- 1989 28 Jun, 2017 Diabetic polyneuropathy associated with type 2 diabetes mellitus E11.42 ; Coronary artery disease involving [place] coronary artery of [place] heart with other form of angina pectoris I25.118 and Paroxysmal atrial fibrillation I48.0 [facility] [address] [place] [id number] [place] [address] 70608- 8613 Jun, [facility] [address] [id number] [place] [address] 15682- 2094 Jun, [facility] [id number] [place] [address] 49987- 5920 Jun, Gastroenteritis K52.9 [facility] [address] 73203- 7473 Jun, Gastroenteritis K52.9 [facility] [address] [address]- 0725 Jun, [facility] [id number] [place] [address] 23480- 2009 Jun, [facility] [address] [place] [address] 02358- 3011 Jun, Sprain of right ankle, unspecified ligament, initial encounter S93.401A ; Type 2 diabetes mellitus with diabetic neuropathy, without long-term current use of insulin E11.40 ; Atherosclerosis of [place] artery of both lower extremities with intermittent claudication I70.213 ; Atherosclerotic heart disease of [place]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 I25.118 ; Chronic atrial fibrillation I48.2 and Crohn''s disease without complication, unspecified gastrointestinal tract location K50.90 [facility] [address] [place] [address] 17978 -0529 17 Jun, 2017 Cough R05 and Chronic obstructive pulmonary disease with acute lower respiratory infection J44.0 [facility] [address] [address]- 6781 16 Jun, 2017 [facility] [address] [place] [id number] [place] [address] 65507- 1589 15 Jun, 2017 Coughing R05 ; Unspecified atherosclerosis of [place] arteries of extremities, unspecified extremity I70.209 ; Type 2 diabetes mellitus with diabetic peripheral angiopathy without gangrene E11.51 ; Crohn''s disease without complication, unspecified gastrointestinal tract location K50.90 ; Other chronic pancreatitis K86.1 and Chronic atrial fibrillation I48.2 [facility] [address] [place] [address] 88900 -4650 Jun, [facility] [address] [id number] [place] [address] 25672- 2873 06 Jun, 2017 Bipolar affective disorder, currently depressed, moderate F31.32 ; Vascular dementia without behavioral disturbance F01.50 and Generalized anxiety disorder F41.1 [facility] [address] [address]- 9292 May, Generalized anxiety disorder F41.1 [facility] [address] [place] [address] 47207- 5686 May, [facility] [address] [place] [id number] [place] [address] 52972- 4272 May, [facility] [address] [id number] [place] [address] 82246- 1561 May, Coughing R05 [facility] [address] [id number] [place] [address] 98026- 8143 May, [facility] [address] [place] [id number] [place] [address] 27439- 5716 May, Bipolar affective disorder, currently depressed, moderate F31.32 ; Vascular dementia without behavioral disturbance F01.50 and Generalized anxiety disorder F41.1 [facility] [address] [place] [address] 41979- 9775 Apr, Generalized anxiety disorder F41.1 [facility] [address] [id number] [place] [address] 62878- 1394 Apr, [facility] [address] [place] [address] 87540- 2360 Apr, Vascular dementia without behavioral disturbance F01.50 ; Generalized anxiety disorder F41.1 and Bipolar affective disorder, currently depressed, moderate F31.32 [facility] [address] [address]- 6578 Apr, Generalized anxiety disorder F41.1 [facility] [address] [place] [address] 50703 -1460 Apr, Cough R05 and Acute exacerbation of chronic obstructive pulmonary disease (COPD) J44.1 [facility] [address] [address]- 0259 Apr, [facility] [id number] [place] [address] 41007 -5957 31 Mar, 2017 Cough R05 and Cigarette nicotine dependence without complication F17.210 [facility] [address] 12193- 0946 06 Mar, 2017 [facility] [address] 92958- 2516 29 Feb, 2017 Generalized anxiety disorder F41.1 ; Major depressive disorder, recurrent episode, moderate F33.1 ; Vascular dementia without behavioral disturbance F01.50 and Unspecified psychosis F29 [facility] [address] 62406- 6157 Feb, [facility] [address] 63039- 9725 Feb, [facility] [address] 80451- 7192 Feb, Generalized anxiety disorder F41.1 [facility] [address] 28165- 3819 14 Feb, 2017 Generalized anxiety disorder F41.1 [facility] [address] [place] [id number] [place] [address] 78340- 4494 06 Feb, 2017 Dizziness R42 ; Chronic fatigue R53.82 ; Postconcussion syndrome F07.81 ; Fall, initial encounter W19.XXXA and Disorientation R41.0 [facility] [address] 47445- 9869 03 Feb, 2017 Postconcussion syndrome F07.81 ; Injury of head, initial encounter S09.90XA ; Fall, initial encounter W19.XXXA ; Disorientation R41.0 and Acute cystitis with hematuria N30.01 [facility] [address] [place] [id number] [place] [address] 97066- 7786 30 Jan, 2017 Gastroesophageal reflux disease, esophagitis presence not specified K21.9 ; Post-menopausal Z78.0 and Migraine without aura and without status migrainosus, not intractable G43.009 [facility] [address] [place] [id number] [place] [address] 52541- 4881 Jan, [facility] [address] [place] [id number] [place] [address] 24646- 1336 Jan, Generalized anxiety disorder F41.1 ; Major depressive disorder, recurrent episode, moderate F33.1 ; Vascular dementia without behavioral disturbance F01.50 and Unspecified psychosis F29 [facility] [address] [place] [id number] [place] [address] 22416- 5894 Jan, Pneumonia of left lower lobe due to infectious organism J18.1 [facility] [address] [place] [id number] [place] [address] 85119- 1244 Jan, Migraine without aura and with status migrainosus, not intractable G43.001 [facility] [id number] [place] [address] 40332 -7113 Jan, Migraine without aura and without status migrainosus, not intractable G43.009 [facility] [address] [id number] [place] [address] 41077- 9126 Dec, Hematoma T14.8 [facility] [address] [place] [id number] [place] [address] 61765- 5332 Dec, [facility] [id number] [place] [address] 85125 -2866 Nov, Fatigue, unspecified type R53.83 [facility] [address] [id number] [place] [address] 59067- 8683 Nov, Scabies B86 and Coronary artery disease involving [place] coronary artery of blue [place] heart with other form of angina pectoris I25.118 [facility] [address] [place] [id number] [place] [address] 62462- 2770 Nov, [facility] [address] [id number] [place] [address] 53225- 9878 Nov, [facility] [address] [place] [id number] [place] [address] 73512- 6804 Oct, [facility] [address] [place] [address] 15486- 0883 Oct, Generalized anxiety disorder F41.1 and Major depressive disorder, recurrent episode, moderate F33.1 [facility] [id number] [place] [address] 51486- 1359 Oct, Cramp of both lower extremities R25.2 [facility] [address] [id number] [place] [address] 18949- 8180 Oct, Leg cramps R25.2 [facility] [id number] [place] [address] 87718- 3897 Oct, Chronic pain syndrome G89.4 [facility] [id number] [place] [address] 13364- 2305 Oct, [facility] [id number] [place] [address] 55619- 3379 Oct, [facility] [id number] [place] [address] 70130- 4324 Oct, Routine gynecological examination Z01.419 and Screening for breast cancer Z12.31 [facility] [id number] [place] [address] 40133- 9626 Sep, Diarrhea R19.7 [facility] [id number] [place] [address] 28628- 3622 Sep, Back pain M54.9 [facility] [id number] [place] [address] 37427- 7837 Sep, [facility] [id number] [place] [address] 39784- 4054 Sep, [facility] [id number] [place] [address] 84435 -7265 August, Xeroderma Q80.9 [facility] [id number] [place] [address] 55642- 2145 August, Dementia without behavioral disturbance, unspecified dementia type F03.90 [facility] [address] [id number] [place] [address] 23203- 1760 August, Chronic pain syndrome G89.4 [facility] [address] [id number] [place] [address] 38709- 9949 August, [facility] [address] 15491- 5399 August, Hyperlipidemia E78.5 ; Other fatigue R53.83 and Other specified hypotension I95.89 [facility] [id number] [place] [address] 26283 -6277 August, Dysuria R30.0 ; Other fatigue R53.83 and Other specified hypotension I95.89 [facility] [address] 34903- 3574 August, [facility] [address] 29199- 2250 Jul, Pain in left knee M25.562 and Gastroenteritis K52.9 [place] [address] [address] Jul, [place] [address] [address] [place] [id number] [place] [phone] Jul, Diarrhea R19.7 [facility] [id number] [place] [phone] Jul, Spider bite, accidental or unintentional, initial encounter T63.[address] [place] [address] [address] [place] [id number] [place] [phone] Jul, Primary osteoarthritis of right knee M17.11 and Arthritis M19.90 [place] [address] [address] [place] [id number] [place] [phone] Jul, Generalized anxiety disorder F41.1 and Major depressive disorder, recurrent episode, moderate F33.1 [place] [address] [address] [place] [address] 07 Jul, 2016 Type 2 diabetes mellitus with diabetic polyneuropathy E11.42 and Temporal headache R51 [place] [address] 23882- 4257 06 Jul, 2016 Back pain M54.9 [place] [address] 28831- 0686 Jul, [place] [address] 00080- 1662 Jul, [place] [address] 32751- 7789 30 Jun, 2016 Nausea R11.0 [facility] [place] [address] 01496 -0378 23 Jun, 2016 Acute suppurative otitis media of both ears without spontaneous rupture of tympanic membranes, recurrence not specified H66.003 and COPD exacerbation J44.1 [place] [address] 95704- 4591 Jun, Generalized anxiety disorder F41.1 [place] [address] 39882- 4280 16 Jun, 2016 [facility] [place] [address] 93668 -9317 Jun, [facility] [address] 33909 [address]376 Jun, Shortness of breath R06.02 and COPD exacerbation J44.1 [place] [address] 98629- 6054 10 Jun, 2016 Eczema, unspecified type L30.9 [place] [address] 71903- 8444 09 Jun, 2016 [place] [address] 42941- 9563 May, [place] [address] [place] [id number] [place] [address] 41793- 6448 May, Muscle cramping R25.2 [place] [address] [place] [id number] [place] [address] 22430- 4698 May, [place] [address] [place] [id number] [place] [address] 78754- 7250 Apr, Diarrhea R19.7 [place] [address] [place] [id number] [place] [address] 58024- 6507 Apr, [place] [address] [place] [id number] [place] [address] 23006- 0415 Apr, Chronic pain syndrome G89.4 [place] [address] [place] [id number] [place] [address] 21866- 5490 Apr, Cramp of both lower extremities R25.2 and Vascular dementia without behavioral disturbance F01.50 [place] [address] [place] [id number] [place] [address] 63534- 6975 Apr, Type 2 diabetes mellitus with diabetic polyneuropathy E11.42 and Cigarette nicotine dependence without complication F17.210 [place] [address] [place] [id number] [place] [address] 34585- 3375 Mar, Generalized anxiety disorder F41.1 [place] [address] [place] [id number] [place] [address] 33891- 9684 Feb, Generalized anxiety disorder F41.1 and Major depressive disorder, recurrent episode, moderate F33.1 [place] [address] [place] [id number] [place] [address] 70052- 4543 Feb, [facility] [address] 85065 -7150 05 Feb, 2016 Dysuria R30.0 and Acute cystitis with hematuria N30.01 [place] [address] [place] [id number] [place] [address] 86678- 2991 Jan, [place] [address] [place] [address] [address] 7275 Jan, [facility] [address] [place] [id number] [place] [address] 88221- 0076 Jan, [facility] [address] [place] [id number] [place] [address] 00261- 3225 Jan, [facility] [address] [place] [id number] [place] [address] 93505 -0438 10 Jan, 2016 Wasp sting, accidental or unintentional, initial encounter T63.461A [facility] [address] [place] [id number] [place] [address] 77844- 6855 06 Jan, 2016 Encounter for immunization Z23 [place] [address] [address] [place] [id number] [place] [address] 71662- 8387 05 Jan, 2016 [facility] [address] [place] [id number] [place] [address] 69010- 7135 Jan, [facility] [address] [place] [id number] [place] [address] 89471- 5024 28 Dec, 2015 Generalized anxiety disorder F41.1 and Major depressive disorder, recurrent episode, moderate F33.1 [place] [address] [place] [id number] [place] [address] 67957- 5523 21 Dec, 2015 Routine gynecological examination Z01.419 ; Postmenopausal Z78.0 ; Screening breast examination Z12.39 ; Osteopenia M85.80 and Breast cancer screening Z12.39 [facility] [address] [place] [id number] [place] [address] 53716- 4975 20 Dec, 2015 [facility] [address] [place] [id number] [place] [address] 57517- 3878 19 Dec, 2015 [facility] [address] [place] [id number] [place] [address] 97214- 9386 16 Dec, 2015 [facility] [address] [place] [id number] [place] [address] 41173- 1025 16 Dec, 2015 [facility] [address] [place] [id number] [place] [address] 85537- 0112 14 Dec, 2015 [facility] [address] [address]- 9123 Dec, [facility] [address] [address]- 8881 Nov, [facility] [address] [address] Nov, Cough R05 ; Other viral agents as the cause of diseases classified elsewhere B97.89 and Acute upper respiratory infection, unspecified J06.9 [facility] [address] [address]- 6248 Nov, [facility] [address] [address]- 6245 Nov, [facility] [address] [address]- 4618 Nov, [facility] [address] [address]- 7901 Nov, [facility] [address] [address]- 3485 Nov, [facility] [address] [address]- 3331 Oct, [facility] [address] [address]- 8665 Oct, [facility] [address] [address]- 0101 Oct, [facility] [address] [address]- 9673 Oct, Chronic pain syndrome G89.4 [facility] [address] [address]- 2710 Sep, Generalized anxiety disorder F41.1 and Major depressive disorder, recurrent episode, moderate F33.1 [facility] [address] [place] [address] [address]- 1152 Sep, [facility] [address] [place] [id number] [place] [address] 34154- 5496 Sep, [facility] [address] [place] [id number] [place] [address] 09282- 3633 14 Sep, 2015 Generalized anxiety disorder F41.1 [facility] [address] [place] [id number] [place] [address] 97211- 3198 13 Sep, 2015 Cramp of both lower extremities R25.2 and Cervicalgia M54.2 [facility] [address] [place] [id number] [place] [address] 98648- 7031 06 Sep, 2015 Generalized anxiety disorder F41.1 [facility] [address] [place] [id number] [place] [address] 50413- 1610 Sep, [facility] [address] [place] [id number] [place] [address] 31172 -0912 August, Rash R21 ; Itching L29.9 and Allergic response, subsequent encounter T78.40XD [facility] [address] [place] [id number] [place] [address] 35573- 6506 August, Primary insomnia F51.01 [facility] [address] [place] [id number] [place] [address] 28171 -1486 August, Rash R21 ; Itching L29.9 and Allergic response, initial encounter T78.40XA [facility] [address] [place] [address] 41060- 6338 August, [facility] [address] [place] [id number] [place] [address] 81645- 7572 August, Cramp of both lower extremities R25.2 [facility] [address] [place] [id number] [place] [address] 38571- 5655 August, Back pain M54.9 [facility] [address] [place] [id number] [place] [address] 33987- 6576 August, [facility] [address] [address]- 7596 August, [facility] [address] [place] [id number] [place] [address] 26325 -3172 August, Cramp of both lower extremities R25.2 [facility] [address] [place] [address] 23655- 6106 August, [facility] [address] [place] [id number] [place] [address] 11883- 6959 August, Syncope R55 ; Paroxysmal atrial fibrillation I48.0 ; Dementia without behavioral disturbance, unspecified dementia type F03.90 and Chronic pain syndrome G89.4 [facility] [address] [place] [id number] [place] [address] 98629- 4916 August, Type 2 diabetes mellitus with diabetic polyneuropathy E11.42 and Syncope R55 [facility] [address] [place] [id number] [place] [address] 27024- 7492 Jul, [facility] [address] [place] [id number] [place] [address] 82105- 6434 Jul, [facility] [address] [place] [id number] [place] [address] 18739- 7183 Jul, [facility] [address] [place] [address] 21328- 4421 Jul, [facility] [address] [place] [address] 76858- 1418 Jul, [facility] [address] [place] [address] 87499- 4273 Jul, UTI (urinary tract infection) N39.0 [facility] [address] [place] [id number] [place] [address] 24932- 7298 Jul, [facility] [address] [place] [address] 70222- 2497 Jul, Major depressive disorder, recurrent episode, moderate F33.1 and Generalized anxiety disorder F41.1 [facility] [address] [address]- 9942 Jul, Generalized anxiety disorder F41.1 [facility] [address] [address]- 7464 14 Jul, 2015 Diarrhea R19.7 [facility] [address] [address]- 5076 Jul, [facility] [address] [place] [address] 10337- 2742 Jun, [facility] [address] [place] [address] 83701- 8505 Jun, Eczema L30.9 [facility] [address] [place] [address] 61600- 4601 Jun, [facility] [address] [place] [address] 93384- 9013 Jun, COPD (chronic obstructive pulmonary disease) J44.9 [facility] [address] [address]- 9700 Jun, [facility] [address] [address]- 9354 Jun, Major depressive disorder, recurrent episode, moderate F33.1 and Generalized anxiety disorder F41.1 [facility] [address] [address]- 3715 May, [facility] [address] [address]- 8652 May, UTI (urinary tract infection) N39.0 [facility] [address] [address]- 2269 17 May, 2015 [facility] [address] [address]- 8579 May, [facility] [address] [address]- 5749 May, [facility] [address] [place] [id number] [place] [address] 14641- 4372 May, [facility] [address] [place] [id number] [place] [address] 39526- 5734 Apr, Major depressive disorder, recurrent episode, moderate F33.1 and Generalized anxiety disorder F41.1 [facility] [address] [place] [id number] [place] [address] 48836- 1445 Apr, COPD (chronic obstructive pulmonary disease) J44.9 [facility] [address] [place] [id number] [place] [address] 15669- 6021 Apr, [facility] [address] [place] [id number] [place] [address] 86030- 7035 Apr, Atrial flutter I48.92 [facility] [address] [place] [id number] [place] [address] 84135- 6322 Apr, [facility] [address] [place] [id number] [place] [address] 17378- 8700 Apr, [facility] [address] [place] [id number] [place] [address] 92122- 8207 Mar, [facility] [address] [address]- 3126 Mar, [facility] [address] [place] [id number] [place] [address] 62752- 9171 Mar, [facility] [address] [place] [address] 65809- 6476 Mar, Hyperlipidemia E78.5 ; Type 2 diabetes mellitus with diabetic polyneuropathy E11.42 ; Major depressive disorder, recurrent episode, moderate F33.1 and Chronic pain syndrome G89.4 [facility] [address] 0064 Mar, [facility] [address] [place] [id number] [place] [address] 84674- 0858 Mar, [facility] [address] [facility] [id number] [address]- 2737 Mar, [facility] [address] [place] [address] 08915- 2272 Mar, [facility] [address] [place] [address] 67021- 6300 Feb, COPD (chronic obstructive pulmonary disease) J44.9 and Back pain M54.9 [facility] [address] [facility] [id number] [place] [address] 23578- 7705 Feb, [facility] [address] [facility] [id number] [place] [address] 86821- 2009 Feb, [facility] [address] [place] [address] 43944- 2291 Feb, [facility] [address] [place] [id number] [place] [address] 43647- 0677 Feb, [facility] [address] [place] [address] 62314- 3249 Feb, [facility] [address] [place] [address] 36510- 9961 Feb, [facility] [address] [address]- 5245 Feb, [facility] [address] [place] [address] 02275- 5942 Feb, [facility] [address] [address]- 5324 Feb, Diabetes E11.9 ; Back pain M54.9 and COPD (chronic obstructive pulmonary disease) J44.9 [facility] [address] [facility] [id number] [address]- 8836 Jan, [facility] [address] [address]- 8252 Jan, Major depression, recurrent F33.9 and Generalized anxiety disorder F41.1 [facility] [address] [place] [id number] [place] [address] 37749- 4769 Jan, Chronic pain G89.29 [facility] [address] [place] [id number] [place] [address] 35245- 6544 Jan, [facility] [address] [place] [id number] [place] [address] 03766- 2415 Jan, [facility] [address] [place] [id number] [place] [address] 55218- 9698 Jan, [facility] [address] [place] [id number] [place] [address] 20636- 3152 Jan, [facility] [address] [place] [id number] [place] [address] 23893- 3661 Jan, Nicotine dependence F17.200 [facility] [address] [place] [id number] [place] [address] 33784- 3415 Jan, Nicotine dependence F17.200 and Back pain M54.9 [facility] [address] [place] [id number] [place] [address] 71715- 8123 Jan, [facility] [address] [place] [id number] [place] [address] 36359- 3890 28 Dec, 2014 [facility] [address] [place] [address] 98551- 3611 25 Dec, 2014 Anxiety, generalized 300.02 and Major depression, recurrent 296.30 [facility] [address] [place] [address] 37943- 5941 24 Dec, 2014 [facility] [address] [place] [id number] [place] [address] 82516- 2696 21 Dec, 2014 [facility] [address] [place] [id number] [place] [address] 83651- 9857 17 Dec, 2014 [facility] [address] [place] [id number] [place] [address] 98132- 8605 15 Dec, 2014 [facility] [address] [address]- 5948 14 Dec, 2014 [facility] [address] [place] [id number] [place] [address] 47899- 0284 11 Dec, 2014 [facility] [address] [place] [address] 72226- 4554 10 Dec, 2014 [facility] [address] [place] [id number] [place] [address] 26154- 5923 08 Dec, 2014 Skin tear 879.8 [facility] [address] [place] [id number] [place] [address] 09970- 4731 08 Dec, 2014 Routine gynecological examination V72.31 ; Breast cancer screening V76.10 and Family history of breast cancer in first degree relative V16.3 [facility] [address] [place] [id number] [place] [address] 31706- 6348 Dec, [facility] [address] [place] [id number] [place] [address] 87799- 7377 Dec, [facility] [address] [place] [id number] [place] [address] 35873- 9945 Nov, [facility] [address] [place] [id number] [place] [address] 50902- 8430 Nov, [facility] [address] [place] [address] 35280- 3672 Nov, Poor balance 781.99 and Vascular dementia, uncomplicated 290.40 [facility] [address] [place] [address] 84932- 6565 Nov, [facility] [address] [place] [id number] [place] [address] 99411- 9254 Nov, Major depression, recurrent 296.30 and Anxiety, generalized 300.02 [facility] [address] [place] [id number] [place] [address] 38559- 4615 Nov, [facility] [address] [place] [id number] [address]- 7864 Nov, [facility] [address] [address]- 0497 Nov, [facility] [address] [place] [id number] [address]- 4130 Nov, [facility] [address] [place] [id number] [place] [address] 91456- 2323 Nov, Vascular dementia, uncomplicated 290.40 and Lumbago 724.2 [facility] [address] [place] [id number] [place] [address] 77661- 6245 Nov, [facility] [address] [place] [id number] [place] [address] 61023- 2004 Nov, [facility] [address] [place] [id number] [place] [address] 37714- 5750 Nov, [facility] [address] [place] [id number] [place] [address] 47439- 8644 Oct, [facility] [address] [place] [id number] [place] [address] 51860- 8494 Oct, [facility] [address] [place] [id number] [place] [address] 10576- 7390 Oct, [facility] [address] [place] [id number] [address]- 3059 Oct, COPD (chronic obstructive pulmonary disease) 496 and Hyperlipidemia 272.4 [facility] [address] [address]- 9151 Oct, Major depression, recurrent 296.30 and Anxiety, generalized 300.02 [facility] [address] [place] [address] [address]- 8686 16 Oct, 2014 [facility] [address] [address]- 2805 Oct, [facility] [id number] [place] [address] Oct, [facility] [address] [address] Sep, Lumbago 724.2 and Anxiety state, unspecified 300.00 [facility] [id number] [place] [address]- [address] Sep, [facility] [id number] [place] [address]- 8[address] Sep, [facility] [id number] [place] [address]- [address] August, [facility] [id number] [place] [address] [id number] [address]70 August, Major depression, recurrent 296.30 ; Anxiety, generalized 300.02 and No condition on [place] II V71.09 [facility] [id number] [place] [address]- [address] August, [facility] [id number] [place] [address]- 8050 August, [facility] [id number] [place] [address] 04158- 5220 Jul, [facility] [id number] [address] Jul, [facility] [address] [address] Jul, [facility] [id number] [address] Jun, [facility] [id number] [place] [address] [id number]- 5048 Jun, [facility] [id number] [place] [address] [id number] Jun, [facility] [address] [address] Jun, [facility] [place] [facility] [address] [id number] [place] [address] 26 Jun, 2014 [facility] [place] [facility] [address] [id number] [place] [address]- [address] 23 Jun, 2014 [facility] [place] [facility] [address] [id number] [place] [address]- [address]86 23 Jun, 2014 [facility] [place] [facility] [address] [id number] [place] [address]- [address] 17 Jun, 2014 [facility] [place] [facility] [address] [id number] [place] [address]- [address] 13 Jun, 2014 [facility] [place] [facility] [address] [id number] [place] [address]- 5689 13 Jun, 2014 [facility] [place] [facility] [address] [id number] [place] [address]- [address]594 Jun, [facility] [place] [facility] [address] [id number] [place] [address]- 4936 10 Jun, 2014 [facility] [place] [facility] [address] [id number] [place] [address]- 8052 Jun, [facility] [place] [facility] [address] [id number] [place] [address]- [address] Jun, [facility] [place] [facility] [address] [id number] [place] [address]- 8414 Jun, [facility] [place] [facility] [address] [id number] [place] [address]- 1582 Jun, [facility] [place] [facility] [address] [id number] [place] [address]- 139[address] May, [facility] [place] [facility] [address] [id number] [place], [place] [address] May, 2014 [facility] [place] [facility] [address] [id number] [place] [address] 7636 May, [facility] [place] [facility] [address] [id number] [place] [address] 6[address] May, 2014 [facility] [place] [facility] [address] [id number] [place] [address] 5386 May, 2014 [facility] [place] [facility] [address] [id number] [place] [address] 1716 May, 2014 [facility] [place] [facility] [address] [facility] [id number] [place] [address] 2776 May, 2014 [facility] [place] [facility] [address] [id number] [place] [address] 0180 May, 2014 [facility] [place] [facility] [address] [id number] [place] [address] 4049 May, 2014 [facility] [place] [facility] [address] [id number] [place] [address] 4420 May, 2014 [facility] [place] [facility] [address] [facility] [id number] [place] [address] 6442 May, 2014 [facility] [place] [facility] [address] [facility] [id number] [place] [address]- 9141 May, 2014 [facility] [place] [facility] [address] [facility] [id number] [place] [address]- 5511 May, 2014 [facility] [place] [facility] [address] [facility] [id number] [place] [address]- 7231 May, [facility] [place] [facility] [address] [facility] [id number] [place] [address] 2540 Apr, [facility] [place] [facility] [address] [facility] [id number] [place] [address]- 2543 Apr, [facility] [place] [facility] [address] [id number] [place] [address]- 8235 Apr, [facility] [place] [facility] [address] [facility] [id number] [place] [address]- 1179 Apr, [facility] [place] [facility] [address] [facility] [id number] [place] [address]- 1238 Apr, [facility] [place] [facility] [address] [id number] [place] [address] 2186 Apr, [facility] [place] [facility] [address] [id number] [place] [address]- 3591 Apr, [facility] [place] [facility] [address] [id number] [place] [address]- 6005 Apr, [facility] [place] [facility] [address] [id number] [place] [address]- 1187 Apr, [facility] [place] [facility] [address] [id number] [place] [address]- 4571 Apr, [facility] [place] [facility] [address] [id number] [place] [address]- 3303 Apr, [facility] [place] [facility] [address] [id number] [place] [address]- 9855 Apr, [facility] [place] [facility] [address] [id number] [place] [address]- 2797 Mar, [facility] [place] [facility] [address] [id number] [place] [address] 1719 Mar, [facility] [place] [facility] [address] [id number] [place] [address]- 0966 Mar, [facility] [place] [facility] [address] [id number] [place] [address]- 1351 Mar, [facility] [place] [facility] [address] [id number] [place] [address]- 9088 Mar, [facility] [place] [facility] [address] [id number] [place] [address]- 7785 Mar, [facility] [place] [facility] [address] [id number] [place] [address] Mar, [facility] [place] [facility] [address] [id number] [place] [address]- 4424 Mar, [facility] [place] [facility] [address] [id number] [place] [address]- 7624 15 Mar, 2014 [facility] [place] [facility] [address] [id number] [place] [address]- 6626 15 Mar, 2014 [facility] [place] [facility] [address] [id number] [place] [address] Mar, [facility] [place] [facility] [address] [id number] [place] [address]- 0796 Mar, [facility] [place] [facility] [address] [id number] [place] [address]- 1111 Mar, [facility] [place] [facility] [address] [id number] [place] [address]- 6011 Mar, [facility] [place] [facility] [address] [id number] [place] [address]- 2883 Mar, [facility] [place] [facility] [address] [id number] [place] [address]- 2076 Mar, [facility] [place] [facility] [address] [id number] [place] [address] 7839 Mar, [facility] [place] [facility] [address] [id number] [place] [address]- 7158 Mar, [facility] [place] [facility] [address] [id number] [place] [address] 0713 Mar, [facility] [place] [facility] [address] [id number] [place] [address] 6914 Mar, [facility] [place] [facility] [address] [id number] [place] [address]- 2001 Feb, [facility] [place] [facility] [address] [id number] [place] [address]- 0723 Feb, [facility] [place] [facility] [address] [id number] [place] [address]- 2482 Feb, [facility] [place] [facility] [address] [id number] [place] [address]- 4739 Feb, [facility] [place] [facility] [address] [id number] [place] [address]- 4269 Feb, [facility] [place] [facility] [address] [id number] [place] [address]- 6683 Feb, [facility] [place] [facility] [address] [id number] [place] [address]- 7680 Feb, [facility] [place] [facility] [address] [id number] [place] [address]- 4470 Feb, [facility] [place] [facility] [address] [id number] [place] [address]- 7382 Feb, [facility] [place] [facility] [address] [id number] [place] [address]- 1119 Feb, [facility] [place] [facility] [address] [id number] [place] [address]- 0632 Feb, [facility] [place] [facility] [address] [id number] [place] [address]- 1723 Feb, [facility] [place] [facility] [address] [id number] [place] [address]- 8864 Feb, [facility] [place] [facility] [address] [id number] [place] [address]- 4204 Feb, [facility] [place] [facility] [address] [id number] [place] [address]- 2218 Feb, [facility] [place] [facility] [address] [id number] [place] [address]- 5708 Feb, [facility] [place] [facility] [address] [id number] [place] [address]- 4187 Feb, [facility] [place] [facility] [address] [id number] [place] [address]- 6644 Jan, [facility] [place] [facility] [address] [id number] [place] [address]- 8667 Jan, [facility] [place] [facility] [address] [id number] [place] [address]- 1216 Jan, [facility] [place] [facility] [address] [id number] [place] [address]- 9137 Jan, [facility] [place] [facility] [address] [id number] [place] [address]- 6261 Jan, [facility] [place] [facility] [address] [id number] [place] [address]- 4726 Jan, [facility] [place] [facility] [address] [id number] [place] [address]- 3126 Jan, [facility] [place] [facility] [address] [id number] [place] [address]- 7657 Jan, [facility] [place] [facility] [address] [id number] [place] [address]- 7584 Jan, [facility] [place] [facility] [address] [id number] [place] [address]- 4886 Jan, [facility] [place] [facility] [address] [id number] [place] [address]- 7611 Jan, [facility] [place] [facility] [address] [id number] [place] [address]- 2906 Dec, [facility] [place] [facility] [address] [id number] [place] [address]- 1910 Dec, [facility] [place] [facility] [address] [id number] [place] [address]- 2434 Nov, [facility] [place] [facility] [address] [id number] [place] [address]- 1078 Nov, [facility] [place] [facility] [address] [id number] [place] [address]- 4775 Nov, [facility] [place] [facility] [address] [id number] [place] [address]- 1734 Nov, [facility] [place] [facility] [address] [id number] [place] [address]- 3729 Nov, [facility] [place] [facility] [address] [id number] [place] [address]- 5699 Nov, [facility] [place] [facility] [address] [id number] [place] [address]- 5861 Nov, [facility] [place] [facility] [address] [id number] [place] [address]- 9627 Oct, [facility] [place] [facility] [address] [id number] [place] [address]- 3093 Oct, [facility] [place] [facility] [address] [id number] [place] [address]- 3696 Oct, [facility] [place] [facility] [address] [id number] [place] [address]- 0557 Oct, [facility] [place] [facility] [address] [id number] [place] [address]- 8542 Sep, [facility] [place] [facility] [address] [id number] [place] [address]- 9677 Sep, [facility] [place] [facility] [address] [id number] [place] [address]- 0307 Sep, [facility] [place] [facility] [address] [id number] [place] [address]- 2819 Sep, [facility] [place] [facility] [address] [id number] [place] [address]- 9899 Sep, [facility] [place] [facility] [address] [id number] [place] [address]- 4670 Sep, [facility] [place] [facility] [address] [id number] [place] [address]- 4523 Sep, [facility] [place] [facility] [address] [id number] [place] [address]- 7318 Sep, [facility] [place] [facility] [address] [id number] [place] [address]- 9545 Sep, [facility] [place] [facility] [address] [id number] [place] [address]- 4390 Sep, [facility] [place] [facility] [address] [id number] [place] [address]- 4449 Sep, [facility] [place] [facility] [address] [id number] [place] [address]- 2099 Sep, [facility] [place] [facility] [address] [id number] [place] [address]- 3517 Sep, [facility] [place] [facility] [address] [id number] [place] [address]- 6162 Sep, [facility] [place] [facility] [address] [id number] [place] [address]- 8812 August, [facility] [place] [facility] [address] [id number] [place] [address]- 1507 August, [facility] [place] [facility] [address] [id number] [place] [address]- 2297 August, [facility] [place] [facility] [address] [id number] [place] [address]- 3719 August, [facility] [place] [facility] [address] [id number] [place] [address]- 9638 August, [facility] [place] [facility] [address] [id number] [place] [address]- 4690 August, [facility] [place] [facility] [address] [id number] [place] [address]- 4264 August, [facility] [place] [facility] [address] [id number] [place] [address]- 2264 August, [facility] [place] [facility] [address] [id number] [place] [address]- 5619 August, [facility] [place] [facility] [address] [id number] [place] [address]- 2781 August, [facility] [place] [facility] [address] [id number] [place] [address]- 3992 August, [facility] [place] [facility] [address] [id number] [place] [address]- 7096 August, [facility] [place] [facility] [address] [id number] [place] [address]273 August, [facility] [place] [facility] [address] [id number] [place] [address]- 5734 August, [facility] [place] [facility] [address] [id number] [place] [address]- 7074 August, [facility] [place] [facility] [address] [id number] [place] [address]- 9443 August, [facility] [place] [facility] [address] [id number] [place] [address]- 0490 August, [facility] [place] [facility] [address] [id number] [place] [address]- 7551 August, [facility] [place] [facility] [address] [id number] [place] [address]- 2426 August, [facility] [place] [facility] [address] [id number] [place] [address]- 3779 Jul, [facility] [place] [facility] [address] [id number] [place] [address]- 1006 Jul, [facility] [place] [facility] [address] [id number] [place] [address]- 9882 Jul, [facility] [place] [facility] [address] [id number] [place] [address]- 6115 Jul, [facility] [place] [facility] [address] [id number] [place] [address]- 3610 Jun, [facility] [place] [facility] [address] [id number] [place] [address]- 8544 Jun, [facility] [place] [facility] [address] [id number] [place] [address]- 0900 Jun, [facility] [place] [facility] [address] [id number] [place] [address]- 6666 Jun, [facility] [place] [facility] [address] [id number] [place] [address]- 9595 17 Jun, 2013 [facility] [place] [facility] [address] [id number] [place] [address]- 1607 17 Jun, 2013 [facility] [place] [facility] [address] [id number] [place] [address]- 7457 14 Jun, 2013 [facility] [place] [facility] [address] [id number] [place] [address]- 2859 14 Jun, 2013 [facility] [place] [facility] [address] [id number] [place] [address]- 0057 Jun, [facility] [place] [facility] [address] [id number] [place] [address]- 5056 Jun, [facility] [place] [facility] [address] [id number] [place] [address]- 5143 May, [facility] [place] [facility] [address] [id number] [place] [address]- 0570 May, [facility] [place] [facility] [address] [id number] [place] [address]- 1295 May, [facility] [place] [facility] [address] [facility] [id number] [place] [address]- 0444 May, [facility] [place] [facility] [address] [facility] [id number] [place] [address]- 4936 May, [facility] [place] [facility] [address] [facility] [id number] [place] [address]- 2484 May, [facility] [place] [facility] [address] [id number] [place] [address]- 4656 20 May, 2013 [facility] [place] [facility] [address] [id number] [place] [address]- 2385 May, [facility] [place] [facility] [address] [facility] [id number] [place] [address]- 4224 May, [facility] [place] [facility] [address] [facility] [id number] [place] [address]- 7677 May, [facility] [place] [facility] [address] [id number] [place] [address]- 6858 18 May, 2013 [facility] [place] [facility] [address] [id number] [place] [address]- 6206 17 May, 2013 [facility] [place] [facility] [address] [id number] [place] [address]- 6306 May, [facility] [place] [facility] [address] [id number] [place] [address]- 0954 May, [facility] [place] [facility] [address] [id number] [place] [address]- 6236 May, [facility] [place] [facility] [address] [id number] [place] [address]- 2253 07 May, 2013 [facility] [place] [facility] [address] [id number] [place] [address]- 4198 07 May, 2013 [facility] [place] [facility] [address] [id number] [place] [address]- 0978 Apr, [facility] [place] [facility] [address] [id number] [place] [address]- 3608 Apr, [facility] [place] [facility] [address] [facility] [id number] [place] [address]- 6720 Apr, [facility] [place] [facility] [address] [id number] [place] [address]- 5630 Apr, [facility] [place] [facility] [address] [id number] [place] [address]- 6248 Apr, [facility] [place] [facility] [address] [id number] [place] [address]- 4946 Apr, [facility] [place] [facility] [address] [facility] [id number] [place] [address]- 0162 Apr, [facility] [place] [facility] [address] [id number] [place] [address]- 3002 Mar, [facility] [place] [facility] [address] [id number] [place] [address]- 5051 Mar, [facility] [address] [id number] [place] [address]- 5113 Mar, [facility] [place] [facility] [address] [id number] [place] [address]- 4451 Mar, [facility] [place] [facility] [address] [id number] [place] [address]- 4476 Mar, [facility] [address] [id number] [place] [address]- 3120 Mar, [facility] [place] [facility] [address] [id number] [place] [address]- 1474 Mar, [facility] [address] [id number] [place] 9583 Mar, [facility] [place] [facility] [address] [id number] [place] [address]- 0171 Mar, [facility] [address] [id number] [place] [address]- 5679 Mar, [facility] [place] [facility] [address] [id number] [place] [address]- 6252 Mar, [facility] [place] [facility] [address] [id number] [place] [address]- 6411 Feb, [facility] [place] [facility] [address] [id number] [place] [address]- 1209 Feb, [facility] [place] [facility] [address] [id number] [place] [address]- 7582 Feb, [facility] [place] [facility] [address] [id number] [place] [address]- 3847 Feb, [facility] [place] [facility] [address] [id number] [place] [address]- 6716 Feb, [facility] [place] [facility] [address] [id number] [place] [address]- 6297 19 Feb, 2013 [facility] [place] [facility] [address] [id number] [place] [address]- 1084 15 Feb, 2013 [facility] [place] [facility] [address] [id number] [place] [address]- 7285 14 Feb, 2013 [facility] [place] [facility] [address] [id number] [place] [address]- 9992 14 Feb, 2013 [facility] [place] [facility] [address] [id number] [place] [address]- 8631 13 Feb, 2013 [facility] [place] [facility] [address] [id number] [place] [address]- 6908 13 Feb, 2013 [facility] [place] [facility] [address] [id number] [place] [address]- 5399 12 Feb, 2013 [facility] [place] [facility] [address] [id number] [place] [address]- 4536 Feb, [facility] [place] [facility] [address] [id number] [place] [address]- 5839 Feb, [facility] [place] [facility] [address] [id number] [place] [address]- 6605 Feb, [facility] [place] [facility] [address] [id number] [place] [address]- 8333 Feb, [facility] [place] [facility] [address] [id number] [place] [address]- 6685 Jan, [facility] [place] [facility] [address] [id number] [place] [address]- 9741 24 Jan, 2013 [facility] [place] [facility] [address] [id number] [place] [address]- 9535 Jan, [facility] [place] [facility] [address] [id number] [place] [address]- 5318 Jan, [facility] [place] [facility] [address] [id number] [place] [address]- 2266 Jan, [facility] [place] [facility] [address] [id number] [place] [address]- 3803 Jan, [facility] [address] [id number] [place] [address] Jan, [facility] [place] [facility] [address] [id number] [place] [address] Jan, [facility] [address] [id number] [place] [address] 10 Jan, 2013 [facility] [place] [facility] [address] [id number] [place] [address] 27 Dec, 2012 [facility] [address] [id number] [place] [address] 20 Dec, 2012 [facility] [address] [id number] [place] [address] Dec, [facility] [place] [facility] [address] [id number] [place] [address] Dec, [facility] [address] [id number] [place] [address] Dec, [facility] [place] [facility] [address] [id number] [place] [address] Dec, [facility] [address] [id number] [place] [address] Nov, [facility] [place] [facility] [address] [id number] [place] [address] Nov, [facility] [place] [facility] [address] [id number] [place] [address] Nov, [facility] [place] [facility] [address] [id number] [place] [address]163 Nov, [facility] [place] [facility] [address] [id number] [place] [address] 2547 Nov, [facility] [place] [facility] [address] [id number] [place] [address]26 Nov, [facility] [place] [facility] [address] [id number] [place] [address] Nov, [facility] [place] [facility] [address] [id number] [place] [address] Nov, [facility] [place] [facility] [address] [id number] [place] [address] Nov, [facility] [place] [facility] [address] [id number] [place] [address] Nov, [facility] [place] [facility] [address] [id number] [place] [address] Oct, [facility] [place] [facility] [address] [id number] [place] [address] 98[address] Oct, [facility] [place] [facility] [address] [id number] [place] [address] Oct, [facility] [place] [facility] [address] [id number] [place] [address] 9547 Oct, [facility] [place] [facility] [address] [id number] [place] [address]- [address] Oct, [facility] [place] [facility] [address] [id number] [place] [address] Oct, [facility] [place] [facility] [address] [id number] [place] [address] Oct, [facility] [place] [facility] [address] [id number] [place] [address]676 Oct, [facility] [place] [facility] [address] [id number] [place] [address] Sep, [facility] [place] [facility] [address] [id number] [place] [address]657 Sep, [facility] [place] [facility] [address] [id number] [place] [address] Sep, [facility] [place] [facility] [address] [id number] [place] [address] 59[address] Sep, [facility] [address] [id number] [place] [address]6 Sep, [facility] [address] [id number] [place] [address] Sep, [facility] [address] [id number] [place] [address] Sep, [facility] [address] [id number] [place] [address] 7865 Sep, [facility] [address] [id number] [place] [address] August, [facility] [address] [id number] [place] [address]158 August, [facility] [address] [id number] [place] [address] August, [facility] [address] [id number] [place] [address] 16[address] August, [facility] [address] [id number] [place] [address]- 96[address] August, [facility] [address] [id number] [place] [address]- [address]187 Jul, [facility] [address] [id number] [place] [address]- 1408 Jul, [facility] [place] [facility] [address] [id number] [place] [address]- 1839 Jul, [facility] [place] [facility] [address] [id number] [place] [address]- [address] Jul, [facility] [place] [facility] [address] [id number] [place] [address]- 2912 Jul, [facility] [place] [facility] [address] [id number] [place] [address] Jun, [facility] [place] [facility] [address] [id number] [place] [address]- [address]402 18 Jun, 2012 [facility] [address] [id number] [place] [address]- 74[address] 15 Jun, 2012 [facility] [place] [facility] [address] [id number] [place] [address]- [address]24 14 Jun, 2012 [facility] [place] [facility] [address] [id number] [place] [address]- 0905 12 Jun, 2012 [facility] [place] [facility] [address] [id number] [place] [address]- [address]32 08 Jun, 2012 [facility] [place] [facility] [address] [id number] [place] [address]- [address]30 08 Jun, 2012 [facility] [place] [facility] [address] [id number] [place] [address]- 2415 02 Jun, 2012 [facility] [place] [facility] [address] [id number] [place] [address] Jun, [facility] [place] [facility] [address] [id number] [place] [address] 27 May, 2012 [facility] [place] [facility] [address] [id number] [place] [address]146 25 May, 2012 [facility] [place] [facility] [address] [id number] [place] [address]- [address] May, [facility] [place] [facility] [address] [id number] [place] [address]6 May, [facility] [place] [facility] [address] [id number] [place] [address]- [address]167 15 Apr, 2012 [facility] [place] [facility] [address] [id number] [place] [address]- 4825 09 Apr, 2012 [facility] [place] [facility] [address] [id number] [place] [address]- [address]199 08 Apr, 2012 [facility] [place] [facility] [address] [id number] [place] [address] Apr, [facility] [address] [id number] [place] [address]- [address] Apr, [facility] [address] [id number] [place] [address]- [address] Apr, [facility] [address] [id number] [place] [address] Apr, [facility] [address] [id number] [address] Mar, [facility] [place] [facility] [address] [place] [id number] Mar, [facility] [address] [id number] [place] [address] Mar, [facility] [address] [id number] [place] [address] Mar, [facility] [address] [id number] [place] [address] Mar, [facility] [address] [id number] [place] [address] Mar, [facility] [address] [id number] [place] [address] Mar, [facility] [address] [id number] [place] [address] Mar, [facility] [address] [id number] [place] [address] Mar, [facility] [address] [id number] [place] [address]85 Mar, [facility] [address] [id number] [place] [address] 1640 Mar, [facility] [address] [id number] [place] [address] Mar, [facility] [address] [id number] [place] [address] 3[address] Mar, [facility] [place] [facility] [address] [id number] [place] [address] 4[address] Mar, [facility] [place] [facility] [address] [id number] [place] [address] 4285 Mar, [facility] [place] [facility] [address] [facility] [id number] [place] [address] 1323 Mar, [facility] [place] [facility] [address] [id number] [place] [address] 6415 Mar, [facility] [place] [facility] [address] [id number] [place] [address] 6838 Feb, [facility] [place] [facility] [address] [id number] [place] [address] 3898 Feb, [facility] [place] [facility] [address] [id number] [place] [address] Feb, [facility] [place] [facility] [address] [id number] [place] [address] 2367 Feb, [facility] [place] [facility] [address] [id number] [place] [address]- 6352 Feb, [facility] [place] [facility] [address] [facility] [id number] [place] [address] 1389 Feb, [facility] [place] [facility] [address] [id number] [place] [address] 9[address] Feb, [facility] [place] [facility] [address] [id number] [place] [address]- 1196 Feb, [facility] [place] [facility] [address] [id number] [place] [address] Feb, [facility] [place] [facility] [address] [facility] [id number] [place] [address]- 6797 16 Feb, 2012 [facility] [place] [facility] [address] [id number] [place] [address] 6[address] 13 Feb, 2012 [facility] [place] [facility] [address] [id number] [place] [address] 8790 Feb, [facility] [place] [facility] [address] [id number] [place] [address]- 2694 Feb, [facility] [place] [facility] [address] [id number] [place] [address]- 7471 Feb, [facility] [place] [facility] [address] [id number] [place] [address]- 0855 Feb, [facility] [place] [facility] [address] [id number] [place] [address]- 7655 Feb, [facility] [place] [facility] [address] [id number] [place] [address] Jan, [facility] [place] [facility] [address] [id number] [place] [address]- 6116 Jan, [facility] [place] [facility] [address] [id number] [place] [address]- 7677 Jan, [facility] [place] [facility] [address] [id number] [place] [address]- 0048 Jan, [facility] [place] [facility] [address] [id number] [place] [address]- 6619 Jan, [facility] [place] [facility] [address] [id number] [place] [address]- 3889 Jan, [facility] [place] [facility] [address] [id number] [place] [address]- 1476 Jan, [facility] [place] [facility] [address] [id number] [place] [address]- 7864 Jan, [facility] [place] [facility] [address] [id number] [place] [address] Jan, [facility] [place] [facility] [address] [id number] [place] [address]- 4808 Jan, [facility] [place] [facility] [address] [id number] [place] [address]- 3527 Jan, [facility] [place] [facility] [address] [id number] [place] [address]- 9938 Jan, [facility] [place] [facility] [address] [id number] [place] [address]- 6953 Jan, [facility] [place] [facility] [address] [id number] [place] [address]- 7615 Jan, [facility] [place] [facility] [address] [id number] [place] [address]- 9431 Jan, [facility] [place] [facility] [address] [id number] [place] [address]- 5006 05 Jan, 2012 [facility] [place] [facility] [address] [id number] [place] [address]- 7430 04 Jan, 2012 [facility] [place] [facility] [address] [id number] [place] [address]- 2697 21 Dec, 2011 [facility] [place] [facility] [address] [id number] [place] [address]- 7595 20 Dec, 2011 [facility] [place] [facility] [address] [id number] [place] [address]- 2791 18 Dec, 2011 [facility] [place] [facility] [address] [id number] [place] [address]- 2227 18 Dec, 2011 [facility] [place] [facility] [address] [id number] [place] [address]- 2772 10 Dec, 2011 [facility] [place] [facility] [address] [id number] [place] [address] 10 Dec, 2011 [facility] [place] [facility] [address] [id number] [place] [address]- 0101 10 Dec, 2011 [facility] [place] [facility] [address] [id number] [place] [address]- 8434 07 Dec, 2011 [facility] [place] [facility] [address] [facility] [id number] [place] [address]- [address]226 30 Nov, 2011 [facility] [place] [facility] [address] [id number] [place] [address]- 8026 Nov, [facility] [place] [facility] [address] [id number] [place] [address]- 9396 Nov, [facility] [place] [facility] [address] [id number] [place] [address] 2546 Nov, [facility] [place] [facility] [address] [id number] [place] [address] 2546 Nov, [facility] [place] [facility] [address] [id number] [place] [address] 2546 Nov, [facility] [place] [facility] [address] [id number] [place] [address]- 8942 Oct, [facility] [place] [facility] [address] [id number] [place] [address]- 1726 Oct, [facility] [place] [facility] [address] [id number] [place] [address]- 2682 Oct, [facility] [place] [facility] [address] [id number] [place] [address]- 9258 Oct, [facility] [place] [facility] [address] [id number] [place] [address]- 0338 Oct, [facility] [place] [facility] [address] [id number] [place] [address]- 2545 Oct, [facility] [place] [facility] [address] [id number] [place] [address] 2546 Oct, [facility] [place] [facility] [address] [id number] [place] [address] 254 Sep, [facility] [place] [facility] [address] [id number] [place] [address]- 3246 Sep, [facility] [place] [facility] [address] [id number] [place] [address]- 2546 Sep, [facility] [place] [facility] [address] [id number] [place] [address]- 2070 Sep, [facility] [place] [facility] [address] [id number] [place] [address]- 2234 Sep, [facility] [place] [facility] [address] [id number] [place] [address]- 6431 15 Sep, 2011 [facility] [place] [facility] [address] [id number] [place] [address]- 3201 14 Sep, 2011 [facility] [place] [facility] [address] [id number] [place] [address]- 8095 Sep, [facility] [address] [id number] [place] [address]- 8591 05 Sep, 2011 [facility] [address] [id number] [place] [address]- 7741 Sep, [facility] [address] [id number] [place] [address]- 1789 August, [facility] [address] [id number] [place] [address]- 0475 August, [facility] [address] [id number] [place] [address]- 0585 August, [facility] [address] [id number] [place] [address]- 9142 August, [facility] [place] [facility] [address] [id number] [place] [address]- 7848 August, [facility] [place] [facility] [address] [id number] [place] [address]- 1695 Jul, [facility] [place] [facility] [address] [id number] [place] [address]- 5125 Jul, [facility] [place] [facility] [address] [id number] [place] [address]- 1707 Jul, [facility] [place] [facility] [address] [id number] [place] [address]- 6765 17 Jul, 2011 [facility] [place] [facility] [address] [id number] [place] [address]- 2546 Jul, [facility] [place] [facility] [address] [id number] [place] [address]- 9290 Jul, [facility] [place] [facility] [address] [id number] [place] [address]- 5696 Jul, [facility] [place] [facility] [address] [facility] [id number] [place] [address]- 2565 Jun, [facility] [place] [facility] [address] [id number] [place] [address]- 5132 Jun, [facility] [place] [facility] [address] [id number] [place] [address]- 1792 Jun, [facility] [place] [facility] [address] [facility] [id number] [place] [address]- 5831 Jun, [facility] [address] [facility] [id number] [place] [address]- 7601 Jun, [facility] [place] [facility] [address] [id number] [place] [address]- 0392 May, [facility] [place] [facility] [address] [id number] [place] [address]- 4101 May, [facility] [place] [facility] [address] [facility] [id number] [place] [address]- 2589 May, [facility] [place] [facility] [address] [id number] [place] [address]- 3036 May, [facility] [place] [facility] [address] [id number] [place] [address]- 6860 May, [facility] [place] [facility] [address] [id number] [place] [address]- 7862 May, [facility] [place] [facility] [address] [facility] [id number] [place] [address]- 7886 Apr, [facility] [place] [facility] [address] [facility] [id number] [place] [address]- 0038 Mar, [facility] [place] [facility] [address] [id number] [place] [address]- 0640 Feb, [facility] [place] [facility] [address] [id number] [place] [address]- 3267 Feb, [facility] [place] [facility] [address] [id number] [place] [address]- 1011 Feb, [facility] [place] [facility] [address] [id number] [place] [address]- 9523 Feb, [facility] [place] [facility] [address] [id number] [place] [address]- 2833 Jan, [facility] [place] [facility] [address] [id number] [place] [address]- 5427 Jan, [facility] [place] [facility] [address] [id number] [place] [address]- 9659 Jan, [facility] [place] [facility] [address] [id number] [place] [address]- 7438 24 Jan, 2011 [facility] [place] [facility] [address] [id number] [place] [address]- 4039 Jan, [facility] [place] [facility] [address] [id number] [place] [address]- 7468 Dec, [facility] [place] [facility] [address] [id number] [place] [address]- 0116 Oct, [facility] [place] [facility] [address] [id number] [place] [address]- 3602 August, [facility] [place] [facility] [address] [id number] [place] [address]- 3769 Mar, [facility] [place] [facility] [address] [id number] [place] [address]- 9385 Mar, [facility] [place] [facility] [address] [id number] [place]160 16 Mar, 2010 [facility] [place] [facility] [address] [id number] [place] [address]- 4503 15 Mar, 2010 [facility] [place] [facility] [address] [id number] [place] [address]- 3870 15 Mar, 2010 [facility] [place] [facility] [address] [id number] [place] [address]- 5886 08 Mar, 2010 [facility] [place] [facility] [address] [facility] [id number] [place] [address] 2546 Mar, [facility] [place] [facility] [address] [id number] [place] [address]- 9891 Feb, [facility] [place] [facility] [address] [id number] [place] [address]- 6436 Feb, [facility] [place] [facility] [address] [id number] [place] [address]- 3777 Feb, [facility] [place] [facility] [address] [id number] [place] [address]- 9794 Jan, [facility] [place] [facility] [address] [id number] [place] [address]- 4772 Jan, [facility] [place] [facility] [address] [id number] [place] [address]- 0815 Jan, [facility] [place] [facility] [address] [id number] [place] [address]- 5597 Nov, [facility] [place] [facility] [address] [id number] [place] [address]- 3194 14 Sep, 2009 [facility] [place] [facility] [address] [id number] [place] [address]- 8672 August, [facility] [place] [facility] [address] [id number] [place] [address]- 6933 30 Mar, 2009 [facility] [place] [facility] [address] [id number] [place] [address]- 6556 07 Mar, 2009 [facility] [place] [facility] [address] [id number] [place] [address]- 2986 Feb, [facility] [place] [facility] [address]00565100[place] [address]- 8510 10 Feb, 2009 [facility] [address]00565100[place] [address]- 9954 10 Feb, 2009 [facility] [address]00565100[place] [address]- 0140 Feb, [facility] [id number] [place] [address]- 4024 Feb, [facility] [id number] [place] [address] 14908- 7694 Jan, [facility] [id number] [place] [address] 81932- 3226 Jan, [facility] [id number] [place] [address] 19202- 0094 Jan, [facility] [id number] [place] [address] 09658- 8582 Jan, [facility] [address]00565100[place] [address]- 9048 Nov, [facility] [id number] [place] [address] 80720- 2385 Sep, [facility] [address]00565[address] [address]- 4094 August, [facility] [address]00565100[place] [address]- 2089 Jul, [facility] [address]00565[address] [address]- 0571 May, IMMUNIZATIONS No Known Immunizations SOCIAL HISTORY Never Assessed REASON FOR VISIT diabetic foot care and toenail trimming - [employer] Gold PLAN OF CARE Activity Details Follow Up 3 Months Reason: VITAL SIGNS Height 64 in 2017-11-28 Blood pressure systolic 102 mmHg 2017-11-28 Blood pressure diastolic 56 mmHg 2017-11-28 MEDICATIONS Unknown Medications RESULTS No Results PROCEDURES Procedure Date Ordered Result Body Site DEBRIDE NAIL, 6 OR MORE Nov 28, 2017 [facility] VISIT ESTABLISHED PATIENT Nov 28, 2017 INSTRUCTIONS MEDICATIONS ADMINISTERED No Known [...] Knee Surgery 07/16/17 Hospitalization History [facility]- left hand/wrist swelling 10/09/2017
[2018-02-10 10:57] VITALS: BP 133/77
--- OUTSIDE RECORDS SUMMARY | 2018-02-10 10:57 | XMS REPORT ---
Author Author SENAIT DUNLAP [facility] Address [address] [place] [address] Care Team Providers Care Sql Architect Name Role Phone SENAIT DUNLAP Unavailable PROBLEMS Type Condition ICD9-CM Code WFA75-ZF Code Onset Dates Condition Status SNOMED Code Problem 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 Active 73012262 Problem Colon polyp K63.5 Active 03317739 Problem Screening breast examination Z12.39 Active 807145349 Problem Bilateral low back pain without sciatica M54.5 Active 716506685 Problem Postmenopausal Z78.0 Active 30051307 Problem Essential tremor G25.0 Active 62350023 Problem Osteopenia M85.80 Active 505797258 Problem Hyperlipidemia E78.5 Active 72588558 Problem Cigarette nicotine dependence without complication F17.210 Active 67511784 Problem Vascular dementia without behavioral disturbance F01.50 Active [id number] Problem Arthritis M19.90 Active 9700142 Problem Chronic atrial fibrillation I48.2 Active 000942713 Problem Dementia without behavioral disturbance, unspecified dementia type F03.90 Active 17873553 Problem Other chronic pancreatitis K86.1 Active 972183447 Problem Xeroderma Q80.9 Active 51605930 Problem Chronic obstructive pulmonary disease with acute lower respiratory infection J44.0 Active 738286045 Problem Type 2 diabetes mellitus with diabetic neuropathy, without long-term current use of insulin E11.40 Active 68775735 Problem Atherosclerosis of sh[place]cock artery of both lower extremities with intermittent claudication I70.213 Active 327680368708133 Problem Hammertoe of right foot M20.41 Active 760226096 Problem Hammertoe of left foot M20.42 Active 179462881 Problem Migraine without aura and with status migrainosus, not intractable G43.001 Active 882147536 Problem Migraine without aura and without status migrainosus, not intractable G43.009 Active 498601864 Problem Major depressive disorder, recurrent episode, moderate F33.1 Active 399492126 Problem Unspecified psychosis F29 Active 26309718 Problem Cervicalgia M54.2 Active 4434457050636 Problem Diabetic polyneuropathy associated with type 2 diabetes mellitus E11.42 Active 14256751 Problem COPD (chronic obstructive pulmonary disease) J44.9 Active 09870662 Problem 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 Active 1527613429754 Problem Gastroparesis K31.84 Active 864423821 Problem Stress incontinence of urine N39.3 Active 02671481 Problem Osteoporosis M81.0 Active 33900776 Problem Controlled type 2 diabetes mellitus without complication, without long -term current use of insulin E11.9 Active 525127761 Problem Barretts esophagus K22.70 Active 194914079 Problem Chronic fatigue R53.82 Active 57252519 Problem History of common bile duct surgery Z98.89 Active 117573785 Problem Bipolar affective disorder, currently depressed, moderate F31.32 Active 625109455 Problem Generalized anxiety disorder F41.1 Active 507063231 Problem Gastroesophageal reflux disease, esophagitis presence not specified K21.9 Active 162996540 Problem Coronary artery disease involving shinnecock coronary artery of shinnecock heart with other form of angina pectoris I25.118 Active 3099114633595 Problem Postconcussion syndrome F07.81 Active 89675758 Problem Chronic pain syndrome G89.4 Active 824504086 Problem Type 2 diabetes mellitus with diabetic peripheral angiopathy without gangrene E11.51 Active 370718707 Problem Paroxysmal atrial fibrillation I48.0 Active 465512271 Problem Unspecified atherosclerosis of sh[place]cock arteries of extremities, unspecified extremity I70.209 Active 818112179039036 Problem Acute exacerbation of chronic obstructive pulmonary disease (COPD) J44.1 Active 858965307 Problem Crohn''s disease without complication, unspecified gastrointestinal tract location K50.90 Active 76856995 ALLERGIES No Information ENCOUNTERS Encounter Location Date Diagnosis [facility] [address] [id number] [address] Feb, [facility] [id number] [address] Jan, Gastroesophageal reflux disease, esophagitis presence not specified K21.9 [facility] [address] [id number] [address] [address] Dec, [facility] [address] [address] Dec, High risk medication use Z79.899 [facility] [address] [address] 0214 Dec, [facility] [id number] [place] [address] 05581- 7291 24 Dec, 2017 [facility] [id number] [place] [address] 04806- 9408 Dec, [facility] [id number] [place] [address] 36147- 4083 19 Dec, 2017 [facility] [id number] [place] [address] 48307- 8131 18 Dec, 2017 [facility] [id number] [place] [address] 23016- 0448 14 Dec, 2017 [facility] [id number] [place] [address] 02202- 4546 14 Dec, 2017 [facility] [id number] [place] [address] 08265- 2799 13 Dec, 2017 [facility] [address] [address] 9705 Dec, Type 2 diabetes mellitus with diabetic peripheral angiopathy without gangrene E11.51 ; Contusion of face, initial encounter S00.83XA and Bronchitis J40 [facility] [address] [address] 2725 Dec, [facility] [id number] [place] [address] 38541- 3605 06 Dec, 2017 [facility] [address] [address] 6109 Nov, [facility] [address] [address] 3602 Nov, Onychomycosis B35.1 ; Hammertoe of left foot M20.42 ; Hammertoe of right foot M20.41 and Type 2 diabetes mellitus with diabetic neuropathy, without long-term current use of insulin E11.40 [place] [address] [place] [address] 49173- 0323 Nov, [place] [id number] [place] [address] 87705- 5606 Nov, Bronchitis J40 [place] [id number] [place] [address] 01588- 5158 Oct, [place] [id number] [place] [address] 35613- 6535 Oct, Bipolar affective disorder, currently depressed, moderate F31.32 ; Vascular dementia without behavioral disturbance F01.50 and Generalized anxiety disorder F41.1 [place] [id number] [place] [address] 38172- 7029 Oct, [place] [id number] [place] [address] 29273- 1202 Oct, [place] [id number] [place] [address] 33047- 7482 Oct, Edema of both legs R60.0 [place] [id number] [place] [address] 22357- 7357 Oct, [place] [id number] [place] [address] 17387- 9571 Sep, [place] [id number] [place] [address] 91787- 3474 Sep, [place] [id number] [place] [address] 78321- 1761 Sep, [place] [id number] [place] [address] 36589- 7961 Sep, Encounter for well woman exam with routine gynecological exam Z01.419 ; Screening for STDs (sexually transmitted diseases) Z11.3 ; Screening breast examination Z12.31 and Overweight (BMI 25.0-29.9) E66.3 [facility] [address] [address]- 6769 Sep, [facility] [id number] [place] [address] 85022- 9677 Sep, [facility] [id number] [place] [address] 02326- 9613 Sep, [facility] [id number] [place] [address] 83821- 8920 August, [facility] [id number] [place] [address] 65606- 5450 August, [facility] [id number] [place] [address] 38201- 0072 August, Type 2 diabetes mellitus with diabetic neuropathy, without long-term current use of insulin E11.40 and Sprain of right ankle, unspecified ligament, initial encounter S93.401A [facility] [address] [id number] [address] 4392 August, [facility] [id number] [place] [address] 52368- 9954 August, [facility] [address], [place] [address] 7348 August, [facility] [address] [id number], [place] [address] 4377 August, Gastroesophageal reflux disease, esophagitis presence not specified K21.9 [facility] [address], [place] [address]- 8927 August, [facility] [id number] [place] [address] 51538- 3001 August, [facility] [address] [id number] [address]- 4778 August, [facility] [id number] [place] [address] 34077- 2978 August, Type 2 diabetes mellitus with diabetic neuropathy, without long-term current use of insulin E11.40 and Elevated liver enzymes R74.8 [facility] [id number] [place] [address] 91992- 2766 Jul, [facility] [address] 14046- 9430 Jul, Cough R05 [facility] [address] 55702- 4810 Jul, [facility] [address] 04269- 9420 Jul, [facility] [id number] [place] [address] 77959- 1130 Jul, Bipolar affective disorder, currently depressed, moderate F31.32 ; Vascular dementia without behavioral disturbance F01.50 and Generalized anxiety disorder F41.1 [place] [id number] [place] [address] 87444- 2271 Jul, [facility] [id number] [place] [address] 98970- 9713 Jul, Type 2 diabetes mellitus with diabetic neuropathy, without long-term current use of insulin E11.40 and Elevated liver enzymes R74.8 [place] [id number] [place] [address] 94530- 0339 Jul, [facility] [id number] [place] [address] 94916- 6562 Jul, [facility] [id number] [place] [address] 76851- 1807 Jul, [place] [id number] [place] [address] 16467- 0733 Jul, Post-menopausal Z78.0 [facility] [id number] [place] [address] 08086- 2480 Jul, Stress incontinence of urine N39.3 [facility] [address], [place] [address]- 8948 Jul, [facility] [id number] [place] [address] 87030- 4292 Jul, [facility] [id number] [place] [address] 58741- 7370 Jul, Stress incontinence of urine N39.3 and Cough R05 [facility] [id number] [place] [address] 23509- 8765 Jul, [facility] [id number] [place] [address] 03700- 1888 Jul, [facility] [id number] [place] [address] 31944- 8996 Jul, [facility] [id number] [place] [address] 52326- 9290 Jul, Gastroesophageal reflux disease, esophagitis presence not specified K21.9 [facility] [id number] [place] [address] 57797- 5524 Jun, Diabetic polyneuropathy associated with type 2 diabetes mellitus E11.42 [facility] [id number] [place] [address] 64538- 1482 Jun, Diabetic polyneuropathy associated with type 2 diabetes mellitus E11.42 ; Coronary artery disease involving shinnecock coronary artery of shinnecock heart with other form of angina pectoris I25.118 and Paroxysmal atrial fibrillation I48.0 [facility] [id number] [place] [address] 53205- 0324 Jun, [facility] [id number] [place] [address] 04703- 1417 Jun, [facility] [id number] [place] [address] 86458- 3631 Jun, Gastroenteritis K52.9 [facility] [id number] [place] [address] 96651- 7183 Jun, Gastroenteritis K52.9 [facility] [id number], [place] [address]- 7019 Jun, [facility] [address], [place] [address]- 2900 Jun, [facility] [address], [place] [address]- 3995 Jun, Sprain of right ankle, unspecified ligament, initial encounter S93.401A ; Type 2 diabetes mellitus with diabetic neuropathy, without long-term current use of insulin E11.40 ; Atherosclerosis of sh[place] artery of both lower extremities with intermittent claudication I70.213 ; 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 ; Chronic atrial fibrillation I48.2 and Crohn''s disease without complication, unspecified gastrointestinal tract location K50.90 [facility] [address], [place] [address]5709 17 Jun, 2017 Cough R05 and Chronic obstructive pulmonary disease with acute lower respiratory infection J44.0 [facility] [address], [place] [address]- 2583 16 Jun, 2017 [facility] [id number] [place] [address] 20544- 5095 15 Jun, 2017 Coughing R05 ; Unspecified atherosclerosis of sh[place] arteries of extremities, unspecified extremity I70.209 ; Type 2 diabetes mellitus with diabetic peripheral angiopathy without gangrene E11.51 ; Crohn''s disease without complication, unspecified gastrointestinal tract location K50.90 ; Other chronic pancreatitis K86.1 and Chronic atrial fibrillation I48.2 [facility] [address], [place] [address]2621 Jun, [facility] [id number] [place] [address] 09445- 6820 06 Jun, 2017 Bipolar affective disorder, currently depressed, moderate F31.32 ; Vascular dementia without behavioral disturbance F01.50 and Generalized anxiety disorder F41.1 [place] [address], [place] [address]- 1652 May, Generalized anxiety disorder F41.1 [facility] [id number] [place] [address] 70241- 9711 May, [facility] [id number] [place] [address] 85986- 1563 May, [facility] [id number] [place] [address] 20158- 7218 May, Coughing R05 [facility] [id number] [place] [address] 97632- 1731 May, [facility] [id number] [place] [address] 30203- 7843 May, Bipolar affective disorder, currently depressed, moderate F31.32 ; Vascular dementia without behavioral disturbance F01.50 and Generalized anxiety disorder F41.1 [facility] [id number] [place] [address] 17507- 1786 Apr, Generalized anxiety disorder F41.1 [facility] [id number] [place] [address] 54650- 7033 Apr, [facility] [id number] [place] [address] 26639- 8080 Apr, Vascular dementia without behavioral disturbance F01.50 ; Generalized anxiety disorder F41.1 and Bipolar affective disorder, currently depressed, moderate F31.32 [facility] [address] [place] [address] 60681- 8966 Apr, Generalized anxiety disorder F41.1 [facility] [id number] [place] [address] 03421 -5662 Apr, Cough R05 and Acute exacerbation of chronic obstructive pulmonary disease (COPD) J44.1 [facility] [id number] [place] [address] 91054- 0303 Apr, [facility] [id number] [place] [address] 07766 -6229 31 Mar, 2017 Cough R05 and Cigarette nicotine dependence without complication F17.210 [place] [id number] [place] [address] 92195- 7582 06 Mar, 2017 [place] [id number] [place] [address] 02802- 5264 Feb, Generalized anxiety disorder F41.1 ; Major depressive disorder, recurrent episode, moderate F33.1 ; Vascular dementia without behavioral disturbance F01.50 and Unspecified psychosis F29 [place] [id number] [place] [address] 10418- 3703 Feb, [place] [address] 61321- 3941 Feb, [place] [id number] [place] [address] 95838- 0984 Feb, Generalized anxiety disorder F41.1 [place] [id number] [place] [address] 10667- 7664 Feb, Generalized anxiety disorder F41.1 [place] [id number] [place] [address] 33772- 0253 06 Feb, 2017 Dizziness R42 ; Chronic fatigue R53.82 ; Postconcussion syndrome F07.81 ; Fall, initial encounter W19.XXXA and Disorientation R41.0 [id number] [place] [address] 34564- 6947 Feb, Postconcussion syndrome F07.81 ; Injury of head, initial encounter S09.90XA ; Fall, initial encounter W19.XXXA ; Disorientation R41.0 and Acute cystitis with hematuria N30.01 [place] [id number] [place] [address] 82242- 2158 30 Jan, 2017 Gastroesophageal reflux disease, esophagitis presence not specified K21.9 ; Post-menopausal Z78.0 and Migraine without aura and without status migrainosus, not intractable G43.009 [place] [id number] [place] [address] 74273- 6901 Jan, [facility] [id number] [place] [address] 31142- 7964 Jan, Generalized anxiety disorder F41.1 ; Major depressive disorder, recurrent episode, moderate F33.1 ; Vascular dementia without behavioral disturbance F01.50 and Unspecified psychosis F29 [place] [address] 67964- 1345 Jan, Pneumonia of left lower lobe due to infectious organism J18.1 [place] [id number] [place] [address] 47760- 0351 Jan, Migraine without aura and with status migrainosus, not intractable G43.001 [facility] [id number] [place] [address] 00595 -2697 Jan, Migraine without aura and without status migrainosus, not intractable G43.009 [place] [id number] [place] [address] 68904- 3338 Dec, Hematoma T14.8 [place] [id number] [place] [address] 87116- 5556 Dec, [facility] [id number] [place] [address] 30006 -3015 Nov, Fatigue, unspecified type R53.83 [place] [id number] [place] [address] 97875- 5002 Nov, Scabies B86 and Coronary artery disease involving shinnecock coronary artery of shinnecock heart with other form of angina pectoris I25.118 [place] [id number] [place] [address] 95275- 2702 Nov, [place] [id number] [place] [address] 51643- 0081 Nov, [place] [id number] [place] [address] 58310- 3984 Oct, [facility] [address] [place] [address] 42399- 6838 Oct, Generalized anxiety disorder F41.1 and Major depressive disorder, recurrent episode, moderate F33.1 [facility] [id number] [place] [address] 41133- 0071 Oct, Cramp of both lower extremities R25.2 [facility] [id number] [place] [address] 46105- 2694 Oct, Leg cramps R25.2 [facility] [id number] [place] [address] 63846- 0388 Oct, Chronic pain syndrome G89.4 [place] [id number] [place] [address] 12106- 4350 Oct, [place] [id number] [place] [address] 68843- 9698 Oct, [facility] [id number] [place] [address] 05885- 2237 Oct, Routine gynecological examination Z01.419 and Screening for breast cancer Z12.31 [place] [id number] [place] [address] 85831- 6884 Sep, Diarrhea R19.7 [facility] [id number] [place] [address] 62242- 0782 Sep, Back pain M54.9 [facility] [id number] [place] [address] 15344- 4901 Sep, [facility] [id number] [place] [address] 81945- 2163 Sep, [facility] [id number] [place] [address] 86904 -8623 August, Xeroderma Q80.9 [facility] [id number] [place] [address] 36061- 5462 August, Dementia without behavioral disturbance, unspecified dementia type F03.90 [place] [id number] [place] [address] 88437- 1367 August, Chronic pain syndrome G89.4 [place] [id number] [place] [address] 94107- 0664 August, [place] [address] 19397- 1395 August, Hyperlipidemia E78.5 ; Other fatigue R53.83 and Other specified hypotension I95.89 [facility] [address] 86994 -1230 August, Dysuria R30.0 ; Other fatigue R53.83 and Other specified hypotension I95.89 [place] [address] 86362- 7973 August, [place] [address] 17959- 9445 Jul, Pain in left knee M25.562 and Gastroenteritis K52.9 [place] [address] 81211- 5617 Jul, [place] [id number] [place] [address] 35715- 8544 Jul, Diarrhea R19.7 [facility] [id number] [place] [address] 62886 -0830 Jul, Spider bite, accidental or unintentional, initial encounter T63.301A [place] [id number] [place] [address] 56532- 9055 Jul, Primary osteoarthritis of right knee M17.11 and Arthritis M19.90 [place] [address] 73418- 8996 Jul, Generalized anxiety disorder F41.1 and Major depressive disorder, recurrent episode, moderate F33.1 [place] [address] [address] 07 Jul, 2016 Type 2 diabetes mellitus with diabetic polyneuropathy E11.42 and Temporal headache R51 [place] [address] [address] Jul, Back pain M54.9 [place] [address] [address] Jul, [place] [address] [address] Jul, [place] [address] [address] 30 Jun, 2016 Nausea R11.0 [facility] [place] [address] [address] 23 Jun, 2016 Acute suppurative otitis media of both ears without spontaneous rupture of tympanic membranes, recurrence not specified H66.003 and COPD exacerbation J44.1 [place] [address] [address] Jun, Generalized anxiety disorder F41.1 [place] [address] [address]- 0332 16 Jun, 2016 [facility] [place] [id number] [place] [address] 93900 -2271 Jun, [facility] [id number] [place] [address] 41290 -1621 Jun, Shortness of breath R06.02 and COPD exacerbation J44.1 [place] [id number] [place] [address] 94140- 1676 10 Jun, 2016 Eczema, unspecified type L30.9 [place] [id number] [place] [address] 28816- 3308 09 Jun, 2016 [place] [id number] [place] [address] 78985- 4118 May, [place] [id number] [place] [address] 07692- 9739 May, Muscle cramping R25.2 [place] [address] 03629- 1375 May, [place] [address] 59372- 1845 Apr, Diarrhea R19.7 [place] [address] 68012- 9283 Apr, [place] [address] 28445- 3894 Apr, Chronic pain syndrome G89.4 [place] [address] 84907- 1803 Apr, Cramp of both lower extremities R25.2 and Vascular dementia without behavioral disturbance F01.50 [place] [address] 85274- 2264 Apr, Type 2 diabetes mellitus with diabetic polyneuropathy E11.42 and Cigarette nicotine dependence without complication F17.210 [place] [address] 22331- 3901 Mar, Generalized anxiety disorder F41.1 [place] [address] 27419- 9148 Feb, Generalized anxiety disorder F41.1 and Major depressive disorder, recurrent episode, moderate F33.1 [place] [id number] [place] [address] 64419- 6280 Feb, [facility] [address] 46916 -2940 Feb, Dysuria R30.0 and Acute cystitis with hematuria N30.01 [place] [address] 27866- 9703 Jan, [place] [address] [place] [address]- 3337 Jan, [facility] [id number] [place] [address] 58850- 8773 Jan, [facility] [id number] [place] [address] 07684- 3172 Jan, [facility] [address] 73630 -7939 10 Jan, 2016 Wasp sting, accidental or unintentional, initial encounter T63.461A [place] [address] 49112- 5456 06 Jan, 2016 Encounter for immunization Z23 [place] [address] 41984- 3726 05 Jan, 2016 [place] [address] 48470- 2535 Jan, [facility] [address] 49903- 3243 28 Dec, 2015 Generalized anxiety disorder F41.1 and Major depressive disorder, recurrent episode, moderate F33.1 [place] [id number] [place] [address] 29354- 6286 21 Dec, 2015 Routine gynecological examination Z01.419 ; Postmenopausal Z78.0 ; Screening breast examination Z12.39 ; Osteopenia M85.80 and Breast cancer screening Z12.39 [facility] [id number] [place] [address] 07739- 8288 20 Dec, 2015 [facility] [id number] [place] [address] 09442- 5039 19 Dec, 2015 [facility] [address] 07388- 0338 16 Dec, 2015 [facility] [id number] [place] [address] 16819- 5539 16 Dec, 2015 [facility] [address] 10892- 7487 Dec, [facility] [address] [address]- 0953 Dec, [facility] [id number] [address]- 9491 Nov, [facility] [id number], [place] [address] Nov, Cough R05 ; Other viral agents as the cause of diseases classified elsewhere B97.89 and Acute upper respiratory infection, unspecified J06.9 [facility] [id number] [address]- 8833 Nov, [facility] [id number] [place] [address] 05635- 7987 Nov, [facility] [id number] [address]- 0273 Nov, [facility] [id number], [place] [address]- 6103 Nov, [facility] [id number], [place] [address]- 0307 Nov, [facility] [id number], [place] [address]- 9590 Oct, [facility] [id number], [place] [address]- 1270 Oct, [facility] [id number], [place] [address]- 7241 Oct, [facility] [id number], [place] [address]- 7841 Oct, Chronic pain syndrome G89.4 [facility] [id number] [place] [address] 39324- 5080 Sep, Generalized anxiety disorder F41.1 and Major depressive disorder, recurrent episode, moderate F33.1 [facility] [id number] [place] [address] 89944- 5305 Sep, [facility] [id number] [place] [address] 12870- 4934 Sep, [facility] [id number] [place] [address] 29781- 8059 14 Sep, 2015 Generalized anxiety disorder F41.1 [place] [id number] [place] [address] 18071- 3345 13 Sep, 2015 Cramp of both lower extremities R25.2 and Cervicalgia M54.2 [facility] [id number] [place] [address] 59362- 6068 06 Sep, 2015 Generalized anxiety disorder F41.1 [place] [id number] [place] [address] 36737- 7587 Sep, [facility] [id number] [place] [address] 38169 -3505 August, Rash R21 ; Itching L29.9 and Allergic response, subsequent encounter T78.40XD [facility] [id number] [place] [address] 87279- 4057 August, Primary insomnia F51.01 [facility] [id number] [place] [address] 37467 -3960 August, Rash R21 ; Itching L29.9 and Allergic response, initial encounter T78.40XA [place] [id number] [place] [address] 96752- 1850 August, [facility] [id number] [place] [address] 05179- 6297 August, Cramp of both lower extremities R25.2 [facility] [id number] [place] [address] 67492- 1166 August, Back pain M54.9 [place] [id number] [place] [address] 79512- 2273 August, [place] [id number], [place] [address]- 8339 August, [facility] [id number], [place] [address] -3888 August, Cramp of both lower extremities R25.2 [facility] [id number], [place] [address]- 0266 August, [facility] [id number] [place] [address] 73711- 0221 August, Syncope R55 ; Paroxysmal atrial fibrillation I48.0 ; Dementia without behavioral disturbance, unspecified dementia type F03.90 and Chronic pain syndrome G89.4 [facility] [id number] [place] [address] 48357- 3588 August, Type 2 diabetes mellitus with diabetic polyneuropathy E11.42 and Syncope R55 [facility] [id number] [place] [address] 51796- 2289 Jul, [facility] [id number] [place] [address] 94253- 3390 Jul, [facility] [address], [place] [address]- 2537 Jul, [facility] [id number], [place] [address]- 2027 Jul, [facility] [id number], [place] [address]- 0092 Jul, [facility] [id number] [place] [address] 45381- 0703 Jul, UTI (urinary tract infection) N39.0 [facility] [id number], [place] [address]- 1417 Jul, [facility] [id number], [place] [address]- 3649 Jul, Major depressive disorder, recurrent episode, moderate F33.1 and Generalized anxiety disorder F41.1 [facility] [address], [place] [address]- 0310 14 Jul, 2015 Generalized anxiety disorder F41.1 [facility] [id number], [place] [address]- 0471 14 Jul, 2015 Diarrhea R19.7 [facility] [id number] [place] [address] 16220- 4793 14 Jul, 2015 [facility] [id number] [place] [address] 47356- 4524 Jun, [facility] [id number] [place] [address] 71006- 9112 Jun, Eczema L30.9 [facility] [id number] [place] [address] 09220- 9702 Jun, [facility] [id number] [place] [address] 30774- 6651 Jun, COPD (chronic obstructive pulmonary disease) J44.9 [facility] [id number], [place] [address]- 2470 Jun, [facility] [id number] [place] [address] 26233- 1602 Jun, Major depressive disorder, recurrent episode, moderate F33.1 and Generalized anxiety disorder F41.1 [facility] [id number], [place] [address]- 6560 May, [facility] [id number], [place] [address]- 4370 May, UTI (urinary tract infection) N39.0 [facility] [id number] [place] [address] 52734- 6337 17 May, 2015 [facility] [id number], [place] [address]- 0519 May, [facility] [id number] [place] [address] 98724- 5606 May, [facility] [id number], [place] [address]- 3339 May, [facility] [id number] [place] [address] 13399- 3422 Apr, Major depressive disorder, recurrent episode, moderate F33.1 and Generalized anxiety disorder F41.1 [facility] [id number] [place] [address] 13123- 0216 Apr, COPD (chronic obstructive pulmonary disease) J44.9 [facility] [id number] [place] [address] 08515- 4355 Apr, [facility] [id number] [place] [address] 22125- 8913 Apr, Atrial flutter I48.92 [facility] [id number] [place] [address] 72956- 4015 Apr, [facility] [id number] [place] [address] 79048- 3902 Apr, [facility] [id number] [place] [address] 32045- 2219 Mar, [facility] [id number] [place] [address] 29895- 5052 Mar, [facility] [id number] [place] [address] 77633- 3887 Mar, [facility] [address], [place] [address]- 6356 Mar, Hyperlipidemia E78.5 ; Type 2 diabetes mellitus with diabetic polyneuropathy E11.42 ; Major depressive disorder, recurrent episode, moderate F33.1 and Chronic pain syndrome G89.4 [facility] [address], [place] [address]- 0950 Mar, [facility] [id number] [place] [address] 84062- 8206 Mar, [facility] [id number], [place] [address]- 5992 Mar, [facility] [id number] [place] [address] 31569- 9526 Mar, [facility] [id number] [place] [address] 13049- 8686 Feb, COPD (chronic obstructive pulmonary disease) J44.9 and Back pain M54.9 [facility] [address] [facility] [id number] [place] [address] 68795- 2036 Feb, [facility] [id number] [place] [address] 92103- 0334 Feb, [facility] [id number] [place] [address] 19089- 7089 Feb, [facility] [id number] [place] [address] 87764- 0411 Feb, [facility] [id number] [place] [address] 93353- 2697 Feb, [facility] [id number] [place] [address] 96241- 6261 Feb, [facility] [address], [place] [address]- 3596 Feb, [facility] [id number] [place] [address] 64323- 0719 Feb, [facility] [id number] [place] [address] 19754- 0890 Feb, Diabetes E11.9 ; Back pain M54.9 and COPD (chronic obstructive pulmonary disease) J44.9 [facility] [address] [facility] [id number] [address]- 5677 Jan, [facility] [id number] [place] [address] 74669- 9736 Jan, Major depression, recurrent F33.9 and Generalized anxiety disorder F41.1 [facility] [id number] [place] [address] 57436- 9827 Jan, Chronic pain G89.29 [facility] [id number] [place] [address] 35814- 0069 Jan, [facility] [id number] [place] [address] 14331- 1495 Jan, [facility] [id number] [place] [address] 41422- 4264 Jan, [facility] [id number] [place] [address] 21841- 7224 Jan, [facility] [id number] [place] [address] 93053- 9310 Jan, Nicotine dependence F17.200 [facility] [id number] [place] [address] 23320- 7433 Jan, Nicotine dependence F17.200 and Back pain M54.9 [facility] [id number] [place] [address] 89529- 8633 Jan, [facility] [id number] [place] [address] 07738- 4264 28 Dec, 2014 [facility] [id number] [place] [address] 95435- 6840 25 Dec, 2014 Anxiety, generalized 300.02 and Major depression, recurrent 296.30 [facility] [id number] [place] [address] 90359- 6308 24 Dec, 2014 [facility] [id number] [place] [address] 09297- 9962 21 Dec, 2014 [facility] [id number] [place] [address] 10915- 9976 17 Dec, 2014 [facility] [id number] [place] [address] 94106- 7459 15 Dec, 2014 [facility] [address], [place] [address]- 5660 14 Dec, 2014 [facility] [id number] [place] [address] 29090- 7698 11 Dec, 2014 [facility] [id number] [place] [address] 42652- 1455 Dec, [facility] [id number] [place] [address] 75597- 6123 08 Dec, 2014 Skin tear 879.8 [facility] [id number] [place] [address] 51362- 3258 Dec, Routine gynecological examination V72.31 ; Breast cancer screening V76.10 and Family history of breast cancer in first degree relative V16.3 [facility] [id number] [place] [address] 62514- 6534 Dec, [facility] [id number] [place] [address] 99898- 0924 Dec, [facility] [id number] [place] [address] 14019- 7571 Nov, [facility] [id number] [place] [address] 23234- 6706 Nov, [facility] [id number] [place] [address] 92686- 6131 Nov, Poor balance 781.99 and Vascular dementia, uncomplicated 290.40 [facility] [id number] [place] [address] 16091- 1217 Nov, [facility] [id number] [place] [address] 19748- 3359 Nov, Major depression, recurrent 296.30 and Anxiety, generalized 300.02 [facility] [id number] [place] [address] 27365- 9754 Nov, [facility] [id number] [place] [address] 67144- 7105 Nov, [facility] [address], [place] [address]- 7323 Nov, [facility] [address], [place] [address]- 0302 Nov, [facility] [id number], [place] [address]- 3891 Nov, Vascular dementia, uncomplicated 290.40 and Lumbago 724.2 [facility] [address], [place] [address]- 7904 Nov, [facility] [id number] [place] [address] 92745- 4894 Nov, [facility] [id number] [place] [address] 96286- 2731 Nov, [facility] [id number] [place] [address] 64409- 9589 Oct, [facility] [address], [place] [address]- 0519 Oct, [facility] [id number], [place] [address]- 2713 Oct, [facility] [id number], [place] [address]- 6842 Oct, COPD (chronic obstructive pulmonary disease) 496 and Hyperlipidemia 272.4 [facility] [address], [place] [address]- 2257 Oct, Major depression, recurrent 296.30 and Anxiety, generalized 300.02 [facility] [address], [place] [address]- 2452 16 Oct, 2014 [facility] [address], [place] [address]- 8975 Oct, [facility] [address], [place] [address]- 1275 Oct, [facility] [address], [place] [address]- 9873 Sep, Lumbago 724.2 and Anxiety state, unspecified 300.00 [facility] [address], [place] [address]- 2501 Sep, [facility] [id number] 3611 Sep, [facility] [id number] [address]- 1851 August, [facility] [id number] [place] [address] 876534- 5029 August, Major depression, recurrent 296.30 ; Anxiety, generalized 300.02 and No condition on Montgomery II V71.09 [facility] [address], [place] [address]- 0976 August, [facility] [address], [place] [address]- 0801 August, [facility] [id number], [place] [address]- 3140 Jul, [facility] [address], [place] [address]- 8153 Jul, [facility] [address], [place] [address]- 4235 Jul, [facility] [id number], [place] [address]- 0983 Jun, [facility] [id number]- 8264 Jun, [facility] [id number] [address]- 5406 Jun, [facility] [id number] [address]- 1378 Jun, [facility] [id number] [place] [address]- 3056 26 Jun, 2014 [facility] [place] [facility] [address] [id number] [place] [address]- 6897 23 Jun, 2014 [facility] [place] [facility] [address] [id number] [place] [address] 23 Jun, 2014 [facility] [place] [facility] [address] [id number] [place] [address] 17 Jun, 2014 [facility] [place] [facility] [address] [id number] [place] [address] 13 Jun, 2014 [facility] [place] [facility] [address] [id number] [place] [address] 13 Jun, 2014 [facility] [place] [facility] [address] [id number] [place] [address] Jun, [facility] [place] [facility] [address] [id number] [place] [address] 10 Jun, 2014 [facility] [place] [facility] [address] [id number] [place] [address] Jun, [facility] [place] [facility] [address] [id number] [place] [address] Jun, [facility] [place] [facility] [address] [id number] [place] [address] Jun, [facility] [place] [facility] [address] [id number] [place] [address]- [address] Jun, 2014 [facility] [place] [facility] [address] [id number] [place] [address] May, [facility] [place] [facility] [address] [id number] [place] [address]- [address] May, 2014 [facility] [place] [facility] [address] [id number] [place] [address]- [address] May, [facility] [place] [facility] [address] [id number] [place] [address]398 May, 2014 [facility] [place] [facility] [address] [id number] [place] [address]- [address]104 May, 2014 [facility] [place] [facility] [address] [id number] [place] [address]- [address] May, 2014 [facility] [place] [facility] [address] [facility] [id number] [place] [address]- 8966 May, 2014 [facility] [place] [facility] [address] [facility] [id number] [place] [address]- [address]43 May, 2014 [facility] [place] [facility] [address] [facility] [id number] [place] [address]- [address]121 May, 2014 [facility] [place] [facility] [address] [facility] [id number] [place] [address]- [address]88 May, 2014 [facility] [place] [facility] [address] [id number] [place] [address] May, 2014 [facility] [place] [facility] [address] [facility] [id number] [place] [address]- 3269 May, [facility] [place] [facility] [address] [facility] [id number] [place] [address] May, 2014 [facility] [place] [facility] [address] [facility] [id number] [place] [address]- [address] May, [facility] [place] [facility] [address] [facility] [id number] [place] [address]- 60[address] Apr, [facility] [place] [facility] [address] [facility] [id number] [place] [address]- [address] Apr, [facility] [place] [facility] [address] [facility] [id number] [place] [address]- [address]235 Apr, [facility] [place] [facility] [address] [facility] [id number] [place] [address]- 63[address] Apr, [facility] [place] [facility] [address] [facility] [id number] [address] Apr, [facility] [place] [facility] [address] [id number] [place] [address]- [address]246 Apr, [facility] [place] [facility] [address] [id number] [place] [address]- [address]46 Apr, [facility] [place] [facility] [address] [id number] [place] [address]- [address] Apr, [facility] [place] [facility] [address] [id number] [place] [address]- [address]75 Apr, [facility] [place] [facility] [address] [id number] [place] [address]- 0401 Apr, [facility] [place] [facility] [address] [id number] [place] [address]- [address] Apr, [facility] [place] [facility] [address] [id number] [place] [address] Apr, [facility] [place] [facility] [address] [id number] [place] [address] 2476 Mar, [facility] [place] [facility] [address] [id number] [place] [address] 2530 Mar, [facility] [place] [facility] [address] [id number] [place] [address] 5209 Mar, [facility] [place] [facility] [address] [id number] [place] [address] 9175 Mar, [facility] [place] [facility] [address] [id number] [place] [address] 9889 Mar, [facility] [place] [facility] [address] [id number] [place] [address] 5617 Mar, [facility] [place] [facility] [address] [id number] [place] [address]- 4744 Mar, [facility] [place] [facility] [address] [id number] [place] [address] 7480 Mar, [facility] [place] [facility] [address] [id number] [place] [address]- 3854 15 Mar, 2014 [facility] [place] [facility] [address] [id number] [place] [address]- 9130 15 Mar, 2014 [facility] [place] [facility] [address] [id number] [place] [address] Mar, [facility] [place] [facility] [address] [id number] [place] [address]- 8036 15 Mar, 2014 [facility] [place] [facility] [address] [id number] [place] [address]- 2451 Mar, [facility] [place] [facility] [address] [id number] [place] [address]- 3097 Mar, [facility] [place] [facility] [address] [id number] [place] [address]- 7617 Mar, [facility] [place] [facility] [address] [id number] [place] [address]- 7429 Mar, [facility] [place] [facility] [address] [id number] [place] [address]- 3137 Mar, [facility] [place] [facility] [address] [id number] [place] [address]- 8407 Mar, [facility] [place] [facility] [address] [id number] [place] [address]- 4592 Mar, [facility] [place] [facility] [address] [id number] [place] [address]- 8783 Mar, [facility] [place] [facility] [address] [id number], [place] [address] Feb, [facility] [place] [facility] [address] [id number] [place] [address]- 0825 Feb, [facility] [place] [facility] [address] [id number] [place] [address]- 8970 Feb, [facility] [place] [facility] [address] [id number] [place] [address]- 3873 Feb, [facility] [place] [facility] [address] [id number] [place] [address]- 8165 Feb, [facility] [place] [facility] [address] [id number] [place] [address]- 0732 Feb, [facility] [place] [facility] [address] [id number] [place] [address] 9929 Feb, [facility] [place] [facility] [address] [id number] [place] [address]- 3514 Feb, [facility] [place] [facility] [address] [id number] [place] [address]- 5178 Feb, [facility] [place] [facility] [address] [id number] [place] [address]- 5693 Feb, [facility] [place] [facility] [address] [id number] [place] [address]- 2709 Feb, [facility] [place] [facility] [address] [id number] [place] [address]- 1510 Feb, [facility] [place] [facility] [address] [id number] [place] [address]- 1872 Feb, [facility] [place] [facility] [address] [id number] [place] [address]- 9658 Feb, [facility] [place] [facility] [address] [facility] [id number] [place] [address]- 6245 Feb, [facility] [place] [facility] [address] [id number] [place] [address]- 4510 Feb, [facility] [place] [facility] [address] [id number] [place] [address]- 1054 Feb, [facility] [place] [facility] [address] [id number] [place] [address]- 1855 Jan, [facility] [place] [facility] [address] [id number] [place] [address]- 4599 Jan, [facility] [place] [facility] [address] [id number] [place] [address]- 8040 Jan, [facility] [place] [facility] [address] [id number] [place] [address]- 3689 Jan, [facility] [place] [facility] [address] [id number] [place] [address]- 2067 Jan, [facility] [place] [facility] [address] [id number] [place] [address]- 4829 Jan, [facility] [place] [facility] [address] [id number] [place] [address]- 8625 Jan, [facility] [place] [facility] [address] [id number] [place] [address]- 9008 Jan, [facility] [place] [facility] [address] [id number] [place] [address]- 2089 Jan, [facility] [place] [facility] [address] [id number] [place] [address]- 1000 Jan, [facility] [place] [facility] [address] [id number] [place] [address]- 5533 Jan, [facility] [place] [facility] [address] [id number] [place] [address]- 6280 Dec, [facility] [place] [facility] [address] [id number] [place] [address]- 8733 Dec, [facility] [place] [facility] [address] [id number] [place] [address]- 0610 Nov, [facility] [place] [facility] [address] [id number], [place] [address]- 1877 Nov, [facility] [place] [facility] [address] [id number] [place] [address]- 2922 Nov, [facility] [place] [facility] [address] [id number] [place] [address]- 4687 Nov, [facility] [place] [facility] [address] [id number] [place] [address] Nov, [facility] [place] [facility] [address] [id number], [place] [address]- 5305 Nov, [facility] [place] [facility] [address] [id number] [place] [address]- 5548 Nov, [facility] [place] [facility] [address] [id number] [place] [address] Oct, [facility] [place] [facility] [address] [id number] [place] [address]- 7227 Oct, [facility] [place] [facility] [address] [id number] [place] [address]- 7426 Oct, [facility] [place] [facility] [address] [id number] [place] [address]- 4518 Oct, [facility] [place] [facility] [address] [id number] [place] [address]- 5971 Sep, [facility] [place] [facility] [address] [id number] [place] [address]- 7327 Sep, [facility] [place] [facility] [address] [id number] [place] [address]- 0988 Sep, [facility] [place] [facility] [address] [id number] [place] [address]- 3324 Sep, [facility] [place] [facility] [address] [id number] [place] [address]- 5199 Sep, [facility] [place] [facility] [address] [id number] [place] [address]- 6094 Sep, [facility] [place] [facility] [address] [id number] [place] [address]- 6754 Sep, [facility] [place] [facility] [address] [id number] [place] [address]- 8359 Sep, [facility] [place] [facility] [address] [id number] [place] [address]- 3948 Sep, [facility] [place] [facility] [address] [id number] [place] [address]- 6601 Sep, [facility] [place] [facility] [address] [id number] [place] [address]- 2218 Sep, [facility] [place] [facility] [address] [id number] [place] [address]- 7625 Sep, [facility] [place] [facility] [address] [id number] [place] [address]- 6550 Sep, [facility] [place] [facility] [address] [id number] [place] [address]- 4507 Sep, [facility] [place] [facility] [address] [id number] [place] [address]- 7918 August, [facility] [place] [facility] [address] [id number] [place] [address]- 0289 August, [facility] [place] [facility] [address] [id number] [place] [address]- 4740 August, [facility] [place] [facility] [address] [id number] [place] [address]- 4490 August, [facility] [place] [facility] [address] [id number] [place] [address]- 0644 August, [facility] [place] [facility] [address] [id number] [place] [address]- 3308 August, [facility] [place] [facility] [address] [id number] [place] [address]- 7457 August, [facility] [place] [facility] [address] [id number] [place] [address]- 3906 August, [facility] [place] [facility] [address] [id number] [place] [address]- 1765 August, [facility] [place] [facility] [address] [id number] [place] [address]- 8883 August, [facility] [place] [facility] [address] [id number] [place] [address] August, [facility] [place] [facility] [address] [id number] [place] [address]- 5331 August, [facility] [address] [id number] [place] [address]- 5101 August, [facility] [place] [facility] [address] [id number] [place] [address]- 7782 August, [facility] [place] [facility] [address] [id number] [place] [address]- 8042 August, [facility] [place] [facility] [address] [id number] [place] [address]- 8997 August, [facility] [place] [facility] [address] [id number] [place] [address]- 3461 August, [facility] [place] [facility] [address] [id number] [place] [address]- 9280 August, [facility] [place] [facility] [address] [id number] [place] [address]- 4846 August, [facility] [place] [facility] [address] [id number] [place] [address]- 2504 Jul, [facility] [place] [facility] [address] [id number] [place] [address]- 8597 Jul, [facility] [place] [facility] [address] [id number] [place] [address]- 0025 Jul, [facility] [place] [facility] [address] [id number] [place] [address]- 4903 Jul, [facility] [place] [facility] [address] [id number] [place] [address]- 6286 Jun, [facility] [place] [facility] [address] [id number] [place] [address]- 2607 Jun, [facility] [place] [facility] [address] [id number] [place] [address]- 6584 Jun, [facility] [place] [facility] [address] [id number] [place] [address]- 0343 Jun, [facility] [place] [facility] [address] [id number] [place] [address]- 1436 17 Jun, 2013 [facility] [place] [facility] [address] [id number] [place] [address]- 1847 17 Jun, 2013 [facility] [place] [facility] [address] [id number] [place] [address]- 9170 14 Jun, 2013 [facility] [place] [facility] [address] [id number] [place] [address]- 6857 14 Jun, 2013 [facility] [place] [facility] [address] [id number] [place] [address]- 9303 06 Jun, 2013 [facility] [place] [facility] [address] [id number] [place] [address]- 0501 06 Jun, 2013 [facility] [place] [facility] [address] [id number] [place] [address]- 4545 27 May, 2013 [facility] [place] [facility] [address] [id number] [place] [address]- 9896 27 May, 2013 [facility] [place] [facility] [address] [id number] [place] [address]- 2904 27 May, 2013 [facility] [place] [facility] [address] [id number] [place] [address]- 0390 27 May, 2013 [facility] [place] [facility] [address] [facility] [id number] [place] [address]- 6325 May, [facility] [place] [facility] [address] [facility] [id number] [place] [address]- 3997 May, [facility] [place] [facility] [address] [id number] [place] [address]- 3260 20 May, 2013 [facility] [place] [facility] [address] [id number] [place] [address]- 0303 19 May, 2013 [facility] [place] [facility] [address] [facility] [id number] [place] [address]- 0571 19 May, 2013 [facility] [place] [facility] [address] [facility] [id number] [place] [address]- 8360 18 May, 2013 [facility] [place] [facility] [address] [id number] [place] [address]- 9935 18 May, 2013 [facility] [place] [facility] [address] [id number] [place] [address]- 4556 17 May, 2013 [facility] [place] [facility] [address] [facility] [id number] [place] [address]- 0186 May, [facility] [place] [facility] [address] [id number] [place] [address]- 3525 May, [facility] [place] [facility] [address] [id number] [place] [address]- 1469 May, [facility] [place] [facility] [address] [facility] [id number] [place] [address]- 6948 May, [facility] [place] [facility] [address] [facility] [id number] [place] [address]- 6829 May, [facility] [place] [facility] [address] [facility] [id number] [place] [address]- 7921 Apr, [facility] [place] [facility] [address] [facility] [id number] [place] [address]- 4165 Apr, [facility] [place] [facility] [address] [facility] [id number] [place] [address]- 5901 Apr, [facility] [place] [facility] [address] [facility] [id number] [place] [address]- 9763 Apr, [facility] [place] [facility] [address] [facility] [id number] [place] [address]- 9732 Apr, [facility] [place] [facility] [address] [facility] [id number] [place] [address]- 2888 Apr, [facility] [place] [facility] [address] [facility] [id number] [place] [address]- 5850 Apr, [facility] [place] [facility] [address] [facility] [id number] [place] [address]- 1925 Mar, [facility] [place] [facility] [address] [id number] [place] [address]- 8839 Mar, [facility] [address] [id number] [place] [address]- 7516 Mar, [facility] [place] [facility] [address] [id number] [place] [address]- 1836 Mar, [facility] [place] [facility] [address] [id number] [place] [address]- 5826 Mar, [facility] [place] [facility] [address] [id number] [place] [address]- 3935 Mar, [facility] [place] [facility] [address] [id number] [place] [address]- 7176 Mar, [facility] [place] [facility] [address] [id number] [place] [address]- 1178 Mar, [facility] [place] [facility] [address] [id number] [place] [address]- 4833 Mar, [facility] [place] [facility] [address] [id number] [place] [address]- 3565 Mar, [facility] [place] [facility] [address] [id number] [place] [address]- 3773 Mar, [facility] [place] [facility] [address] [id number] [place] [address]686 Feb, [facility] [place] [facility] [address] [id number] [place] [address]- 8819 Feb, [facility] [place] [facility] [address] [id number] [place] [address]- 8880 Feb, [facility] [place] [facility] [address] [id number] [place] [address]- 3066 Feb, [facility] [place] [facility] [address] [id number] [place] [address]- 4666 Feb, [facility] [place] [facility] [address] [id number] [place] [address]- 3441 19 Feb, 2013 [facility] [place] [facility] [address] [id number] [place] [address]- 8477 15 Feb, 2013 [facility] [place] [facility] [address] [id number] [place] [address]- 6269 14 Feb, 2013 [facility] [place] [facility] [address] [id number] [place] [address]- 0475 14 Feb, 2013 [facility] [place] [facility] [address] [id number], [place] [address]- 3540 13 Feb, 2013 [facility] [place] [facility] [address] [id number] [place] [address]- 5495 Feb, [facility] [place] [facility] [address] [id number] [place] [address]- 3716 Feb, [facility] [place] [facility] [address] [id number] [place] [address]- 1648 Feb, [facility] [place] [facility] [address] [id number], [place] [address]- 3658 Feb, [facility] [place] [facility] [address] [id number] [place] [address]- 3653 Feb, [facility] [place] [facility] [address] [id number], [place] [address]- 6152 Feb, [facility] [place] [facility] [address] [id number], [place] [address]- 1040 Jan, [facility] [place] [facility] [address] [id number], [place] [address]- 5383 Jan, [facility] [place] [facility] [address] [id number], [place] [address]- 5295 Jan, [facility] [place] [facility] [address] [id number], [place] [address]- 1531 Jan, [facility] [place] [facility] [address] [id number], [place] [address]- 9432 Jan, [facility] [place] [facility] [address] [id number] [place] [address]- 5466 Jan, [facility] [place] [facility] [address] [id number] [place] [address]- 2418 Jan, [facility] [place] [facility] [address] [id number] [place] [address]- 8776 Jan, [facility] [place] [facility] [address] [id number] [place] [address]- 5595 10 Jan, 2013 [facility] [place] [facility] [address] [id number] [place] [address] 2542 27 Dec, 2012 [facility] [place] [facility] [address] [id number] [place] [address]- 2731 20 Dec, 2012 [facility] [place] [facility] [address] [id number] [place] [address]- 2765 Dec, [facility] [place] [facility] [address] [id number] [place] [address]- 0239 10 Dec, 2012 [facility] [place] [facility] [address] [id number] [place] [address] 2545 04 Dec, 2012 [facility] [place] [facility] [address] [id number] [place] [address]- 9635 Dec, [facility] [place] [facility] [address] [id number] [place] [address]- 4044 Nov, [facility] [place] [facility] [address] [id number] [place] [address]- 5824 Nov, [facility] [place] [facility] [address] [id number] [place] [address]- 2545 Nov, [facility] [place] [facility] [address] [id number] [place] [address]- 9564 Nov, [facility] [place] [facility] [address] [id number] [place] [address]- 5675 Nov, [facility] [place] [facility] [address] [id number] [place] [address]- 6557 Nov, [facility] [place] [facility] [address] [id number] [place] [address]- 2380 Nov, [facility] [place] [facility] [address] [id number] [place] [address]- 4944 Nov, [facility] [place] [facility] [address] [id number] [place] [address]- 6196 Nov, [facility] [place] [facility] [address] [id number] [place] [address] Nov, [facility] [place] [facility] [address] [id number] [place] [address] Oct, [facility] [place] [facility] [address] [id number] [place] [address] Oct, [facility] [place] [facility] [address] [id number] [place] [address] Oct, [facility] [place] [facility] [address] [id number] [place] [address] Oct, [facility] [place] [facility] [address] [id number] [place] [address] Oct, [facility] [place] [facility] [address] [id number] [place] [address] Oct, [facility] [place] [facility] [address] [id number] [place] [address] 113[address] Oct, [facility] [place] [facility] [address] [id number] [place] [address] Oct, [facility] [place] [facility] [address] [id number] [place] [address] Sep, [facility] [place] [facility] [address] [id number] [place] [address] Sep, [facility] [place] [facility] [address] [id number] [place] [address] Sep, [facility] [place] [facility] [address] [id number] [place] [address] Sep, [facility] [address] [id number] [place] [address] Sep, [facility] [address] [id number] [place] [address] Sep, [facility] [address] [id number] [place] [address] Sep, [facility] [place] [facility] [address] [id number] [place] [address] 40[address] Sep, [facility] [address] [id number] [place] [address] 69[address] August, [facility] [address] [id number] [place] [address] August, [facility] [address] [id number] [place] [address] August, [facility] [address] [id number] [place] [address] August, [facility] [address] [id number] [place] [address] August, [facility] [address] [id number] [place] [address]643 Jul, [facility] [place] [facility] [address] [id number] [place] [address] 7567 Jul, [facility] [place] [facility] [address] [id number] [place] [address]- 2967 Jul, [facility] [place] [facility] [address] [id number] [place] [address]606 Jul, [facility] [place] [facility] [address] [id number] [place] [address] 28[address] Jul, [facility] [place] [facility] [address] [id number] [place] [address] 1306 Jun, [facility] [place] [facility] [address] [id number] [place] [address]274 18 Jun, 2012 [facility] [address] [id number] [place] [address] 15 Jun, 2012 [facility] [address] [id number] [place] [address]- 9746 14 Jun, 2012 [facility] [address] [id number] [place] [address]043 12 Jun, 2012 [facility] [address] [id number] [place] [address]794 08 Jun, 2012 [facility] [address] [id number] [place] [address]- [address] 08 Jun, 2012 [facility] [address] [id number] [place] [address]- 2875 02 Jun, 2012 [facility] [address] [id number] [place] [address]- 8610 Jun, [facility] [address] [id number] [place] [address]478 27 May, 2012 [facility] [address] [id number] [place] [address]- [address]270 25 May, 2012 [facility] [address] [id number] [place] [address] 67[address] May, [facility] [address] [id number] [place] [address] May, [facility] [address] [id number] [place] [address]809 15 Apr, 2012 [facility] [place] [facility] [address] [id number] [place] [address]381 Apr, [facility] [address] [id number] [place] [address]96 Apr, [facility] [address] [id number] [place] [address] 7[address] Apr, [facility] [address] [id number] [place] [address] 4467 Apr, [facility] [address] [id number] [place] [address] 3845 Apr, [facility] [address] [id number] [place] [address] 6826 Apr, [facility] [address] [id number] [place] [address] Mar, [facility] [place] [id number] Mar, [facility] [address] [id number] [place] [address] Mar, [facility] [address] [id number] [place] [address] 5926 Mar, [facility] [address] [id number] [place] [address]- 9970 Mar, [facility] [address] [id number] [place] [address]- 6287 Mar, [facility] [address] [id number] [place] [address]- 9891 Mar, [facility] [address] [id number] [place] [address]- 1741 Mar, [facility] [address] [id number] [place] [address]- 2696 Mar, [facility] [address] [id number] [place] [address]- 9063 Mar, [facility] [address] [id number] [place] [address]- 4005 Mar, [facility] [address] [id number] [place] [address]- 3279 Mar, [facility] [address] [id number] [place] [address]- 6836 Mar, [facility] [place] [facility] [address] [id number] [place] [address]- [address]155 Mar, [facility] [place] [facility] [address] [id number] [place] [address]- 0526 Mar, [facility] [place] [facility] [address] [id number] [place] [address]- 6121 Mar, [facility] [place] [facility] [address] [id number] [place] [address]- 9879 Mar, [facility] [place] [facility] [address] [id number] [place] [address]- 9847 Feb, [facility] [place] [facility] [address] [id number] [place] [address]- 0539 Feb, [facility] [place] [facility] [address] [id number] [place] [address]- 6614 Feb, [facility] [place] [facility] [address] [id number] [place] [address]- 1613 Feb, [facility] [place] [facility] [address] [id number] [place] [address]- 8311 Feb, [facility] [place] [facility] [address] [id number] [place] [address]- 5725 Feb, [facility] [place] [facility] [address] [id number] [place] [address] Feb, [facility] [place] [facility] [address] [id number] [place] [address] 80[address] Feb, [facility] [place] [facility] [address] [id number] [place] [address] 6915 Feb, [facility] [place] [facility] [address] [id number] [place] [address] 2580 Feb, [facility] [place] [facility] [address] [id number] [place] [address] 8448 Feb, [facility] [place] [facility] [address] [id number] [place] [address] 4865 Feb, [facility] [place] [facility] [address] [id number] [place] [address] 456[address] Feb, [facility] [place] [facility] [address] [id number] [place] [address] 0277 Feb, [facility] [place] [facility] [address] [id number] [place] [address] 4103 Feb, [facility] [place] [facility] [address] [id number] [place] [address] 3766 Feb, [facility] [place] [facility] [address] [id number] [place] [address] Jan, [facility] [place] [facility] [address] [id number] [place] [address] 6544 Jan, [facility] [place] [facility] [address] [id number] [place] [address] 5169 Jan, [facility] [place] [facility] [address] [id number] [place] [address]- 7179 Jan, [facility] [place] [facility] [address] [facility] [id number] [place] [address]- 3025 Jan, [facility] [place] [facility] [address] [facility] [id number] [place] [address]- 7454 Jan, [facility] [place] [facility] [address] [id number] [place] [address]- 5570 Jan, [facility] [place] [facility] [address] [id number] [place] [address]- 2283 Jan, [facility] [place] [facility] [address] [id number] [place] [address]- 1151 Jan, [facility] [place] [facility] [address] [facility] [id number] [place] [address]- 2495 Jan, [facility] [place] [facility] [address] [id number] [place] [address] 8554 Jan, [facility] [place] [facility] [address] [id number] [place] [address]- 1451 Jan, [facility] [place] [facility] [address] [id number] [place] [address]- 2527 Jan, [facility] [place] [facility] [address] [id number] [place] [address]- 1703 Jan, [facility] [place] [facility] [address] [id number] [place] [address]- 0340 Jan, [facility] [place] [facility] [address] [id number] [place] [address]- 7545 05 Jan, 2012 [facility] [place] [facility] [address] [id number] [place] [address]- 4683 04 Jan, 2012 [facility] [place] [facility] [address] [id number] [place] [address]- 0892 21 Dec, 2011 [facility] [place] [facility] [address] [id number] [place] [address]- 2641 20 Dec, 2011 [facility] [place] [facility] [address] [id number] [place] [address]- 9319 18 Dec, 2011 [facility] [place] [facility] [address] [id number], [place] [address] 58[address] 18 Dec, 2011 [facility] [place] [facility] [address] [id number], [place] [address]- 9117 10 Dec, 2011 [facility] [place] [facility] [address] [id number], [place] [address] 0[address] 10 Dec, 2011 [facility] [place] [facility] [address] [id number] [place] [address]- 7255 10 Dec, 2011 [facility] [place] [facility] [address] [id number], [place] [address] 8[address] 07 Dec, 2011 [facility] [place] [facility] [address] [id number], [place] [address] 3263 30 Nov, 2011 [facility] [place] [facility] [address] [id number], [place] [address] 6798 Nov, [facility] [place] [facility] [address] [id number] [place] [address] 1806 Nov, [facility] [place] [facility] [address] [id number] [place] [address]- 7176 Nov, [facility] [place] [facility] [address] [id number] [place] [address]- 1026 Nov, [facility] [place] [facility] [address] [id number] [place] [address]- 4925 Nov, [facility] [place] [facility] [address] [id number] [place] [address] 9834 Oct, [facility] [place] [facility] [address] [id number] [place] [address]- 6098 Oct, [facility] [place] [facility] [address] [id number] [place] [address]- 8325 Oct, [facility] [place] [facility] [address] [id number] [place] [address]- 4268 Oct, [facility] [place] [facility] [address] [id number] [place] [address]- 7199 Oct, [facility] [place] [facility] [address] [id number] [place] [address]- 6820 Oct, [facility] [place] [facility] [address] [id number] [place] [address]- 2775 Oct, [facility] [place] [facility] [address] [id number] [place] [address]- 3300 Sep, [facility] [place] [facility] [address] [id number] [place] [address]- 8198 Sep, [facility] [place] [facility] [address] [id number] [place] [address]- 2054 Sep, [facility] [place] [facility] [address] [id number] [place] [address]- 1051 Sep, [facility] [place] [facility] [address] [id number] [place] [address]- 2965 19 Sep, 2011 [facility] [place] [facility] [address] [id number] [place] [address]- 6881 15 Sep, 2011 [facility] [place] [facility] [address] [id number] [place] [address]- 6925 14 Sep, 2011 [facility] [place] [facility] [address] [id number] [place] [address]- 2708 Sep, [facility] [place] [facility] [address] [id number] [place] [address]- 1425 05 Sep, 2011 [facility] [place] [facility] [address] [id number] [place] [address] 6525 Sep, [facility] [place] [facility] [address] [id number] [place] [address] 7832 August, [facility] [place] [facility] [address] [id number] [place] [address] 0715 August, [facility] [place] [facility] [address] [id number] [place] [address]- 7800 August, [facility] [place] [facility] [address] [id number] [place] [address]- 5107 August, [facility] [place] [facility] [address] [id number] [place] [address]- 6737 August, [facility] [place] [facility] [address] [id number] [place] [address]- 6596 Jul, [facility] [place] [facility] [address] [id number] [place] [address]- 6803 Jul, [facility] [place] [facility] [address] [id number] [place] [address]- 5114 Jul, [facility] [place] [facility] [address] [id number] [place] [address]- 7260 17 Jul, 2011 [facility] [place] [facility] [address] [id number] [place] [address]- 4114 Jul, [facility] [place] [facility] [address] [id number] [place] [address]- 5908 Jul, [facility] [place] [facility] [address] [id number] [place] [address]- 7336 Jul, [facility] [place] [facility] [address] [facility] [id number] [place] [address]- 1700 Jun, [facility] [place] [facility] [address] [id number] [place] [address]- 2715 Jun, [facility] [place] [facility] [address] [id number] [place] [address]- 9433 Jun, [facility] [place] [facility] [address] [id number] [place] [address]- 6287 Jun, [facility] [place] [facility] [id number] [place] [address]- 3584 Jun, [facility] [place] [facility] [address] [id number] [place] [address]- 0498 May, [facility] [place] [facility] [address] [id number] [place] [address]- 7409 May, [facility] [place] [facility] [address] [id number] [place] [address]- 0197 May, [facility] [place] [facility] [address] [id number] [place] [address]- 8524 May, [facility] [place] [facility] [address] [id number] [place] [address]- 3265 May, [facility] [place] [facility] [address] [id number] [place] [address]- 9361 May, [facility] [place] [facility] [address] [facility] [id number] [place] [address]- 6316 Apr, [facility] [place] [facility] [address] [id number] [place] [address]- 9556 Mar, [facility] [place] [facility] [address] [id number] [place] [address]- 7522 11 Feb, 2011 [facility] [place] [facility] [address] [id number] [place] [address]- 8799 07 Feb, 2011 [facility] [place] [facility] [address] [id number] [place] [address]- 0705 Feb, [facility] [place] [facility] [address] [id number] [place] [address]- 9212 Feb, [facility] [place] [facility] [address] [id number] [place] [address]- 2445 Jan, [facility] [place] [facility] [address] [id number] [place] [address]- 6860 Jan, [facility] [place] [facility] [address] [id number] [place] [address]- 0032 Jan, [facility] [place] [facility] [address] [id number] [place] [address]- 0977 24 Jan, 2011 [facility] [place] [facility] [address] [id number] [place] [address]- 8785 14 Jan, 2011 [facility] [place] [facility] [address] [id number] [place] [address]- 2453 Dec, [facility] [place] [facility] [address] [id number] [place] [address]- 4930 Oct, [facility] [place] [facility] [address] [id number] [place] [address]- 6277 August, [facility] [place] [facility] [address] [id number] [place] [address]- 6845 Mar, [facility] [place] [facility] [address] [id number] [place] [address]- 2783 Mar, [facility] [place] [facility] [address] [id number] [place] [address]- 5956 16 Mar, 2010 [facility] [place] [facility] [address] [id number] [place] [address]- 9560 15 Mar, 2010 [facility] [place] [facility] [address] [id number] [place] [address]- 3146 15 Mar, 2010 [facility] [place] [facility] [address] [id number] [place] [address]- 7981 08 Mar, 2010 [facility] [place] [facility] [address] [id number] [place] [address]42 Mar, [facility] [place] [facility] [address] [id number] [place] [address]- 9498 Feb, [facility] [place] [facility] [address] [id number] [place] [address]- 5736 Feb, [facility] [place] [facility] [address] [id number] [place] [address]- 3199 Feb, [facility] [place] [facility] [address] [id number] [place] [address]- 1103 Jan, [facility] [place] [facility] [address] [id number], [place] [address]- 8788 Jan, [facility] [place] [facility] [address] [id number] [place] [address]- 3257 Jan, [facility] [place] [facility] [address] [id number], [place] [address]- 8267 Nov, [facility] [place] [facility] [address] [id number], [place] [address]- 3763 Sep, [facility] [place] [facility] [address] [id number], [place] [address]- 7726 August, [facility] [place] [facility] [address] [id number] [place] [address]- 4828 Mar, [facility] [place] [facility] [address] [id number], [place] [address]- 3862 07 Mar, 2009 [facility] [place] [facility] [address] [id number] [place] [address]- 2578 17 Feb, 2009 [facility] [place] [facility] [id number], [place] [address] 9735 10 Feb, 2009 [facility] [id number], [place] [address]- 4029 10 Feb, 2009 [facility] [id number], [place] [address]- 5957 10 Feb, 2009 [facility] [id number], [place] [address]- 1612 Feb, [facility] [id number], [place] [address]- 0158 Jan, [facility] [id number] [place] [address] 8707 Jan, [facility] [id number] [place] [address]- 3853 Jan, [facility] [id number] [place] [address]- 2472 Jan, [facility] [id number], [place] [address]- 9971 Nov, [facility] [id number], [place] [address]- 8958 Sep, [facility] [id number], [place] [address]- 5692 August, [facility] [id number], [place] [address] Jul, [facility] [id number], [place] [address]- 3148 May, IMMUNIZATIONS No Known Immunizations SOCIAL HISTORY Never Assessed REASON FOR VISIT new pill pack pharmacy refills PLAN OF CARE VITAL SIGNS MEDICATIONS Medication Instructions Dosage Frequency Start Date End Date Duration Status Namenda 10 mg TAKE 1 TABLET EVERY DAY Active Alendronate Sodium 70 MG TAKE 1 TABLET EVERY WEEK Active Welchol 625 MG Orally twice a day 2 tablets 12h Active Ropinirole HCl 2 MG TAKE 1 TABLET ONE TIME DAILY AT BEDTIME 90 Active Singulair 10 MG TAKE 1 TABLET ONE TIME DAILY 90 Active Trazodone HCl 150 MG TAKE 1 TABLET AT BEDTIME NEEDED 90 Active Omeprazole 40 mg Orally 2 times a day 1 capsule 12h Active RESULTS No Results PROCEDURES No Known [...] Surgery 07/16/17 Hospitalization History [facility] [place]- left hand/wrist swelling 10/09/2017
--- OUTSIDE RECORDS SUMMARY | 2018-02-10 10:59 | XMS REPORT ---
Author Author JENNY ORTEGA [facility] Address [address] [place] [address] Care Team Providers Care Biostatistics Teacher Name Role Phone JENNY ORTEGA Unavailable PROBLEMS Type Condition ICD9-CM Code MTF30-UK Code Onset Dates Condition Status SNOMED Code Problem 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 Active 79482185 Problem Colon polyp K63.5 Active 54266156 Problem Screening breast examination Z12.39 Active 317545019 Problem Bilateral low back pain without sciatica M54.5 Active 115201440 Problem Postmenopausal Z78.0 Active 13673968 Problem Essential tremor G25.0 Active 75435336 Problem Osteopenia M85.80 Active 338641925 Problem Hyperlipidemia E78.5 Active 24198317 Problem Cigarette nicotine dependence without complication F17.210 Active 32737912 Problem Vascular dementia without behavioral disturbance F01.50 Active 98249772554355179 Problem Arthritis M19.90 Active 4487170 Problem Chronic atrial fibrillation I48.2 Active 951915961 Problem Dementia without behavioral disturbance, unspecified dementia type F03.90 Active 08789447 Problem Other chronic pancreatitis K86.1 Active 790216390 Problem Xeroderma Q80.9 Active 10926330 Problem Chronic obstructive pulmonary disease with acute lower respiratory infection J44.0 Active 278981374 Problem Type 2 diabetes mellitus with diabetic neuropathy, without long-term current use of insulin E11.40 Active 59149691 Problem Atherosclerosis of campo artery of both lower extremities with intermittent claudication I70.213 Active 894181450530357 Problem Hammertoe of right foot M20.41 Active 111646287 Problem Hammertoe of left foot M20.42 Active 534947296 Problem Migraine without aura and with status migrainosus, not intractable G43.001 Active 363854623 Problem Migraine without aura and without status migrainosus, not intractable G43.009 Active 537820815 Problem Major depressive disorder, recurrent episode, moderate F33.1 Active 887010497 Problem Unspecified psychosis F29 Active 09705026 Problem Cervicalgia M54.2 Active 2291442086779 Problem Diabetic polyneuropathy associated with type 2 diabetes mellitus E11.42 Active 22729624 Problem COPD (chronic obstructive pulmonary disease) J44.9 Active 35575451 Problem 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.118 Active 4194149997360 Problem Gastroparesis K31.84 Active 432869113 Problem Stress incontinence of urine N39.3 Active 12210362 Problem Osteoporosis M81.0 Active 73746084 Problem Controlled type 2 diabetes mellitus without complication, without long -term current use of insulin E11.9 Active 553005606 Problem Barretts esophagus K22.70 Active 264389151 Problem Chronic fatigue R53.82 Active 29394304 Problem History of common bile duct surgery Z98.89 Active 870608603 Problem Bipolar affective disorder, currently depressed, moderate F31.32 Active 662805107 Problem Generalized anxiety disorder F41.1 Active 617984636 Problem Gastroesophageal reflux disease, esophagitis presence not specified K21.9 Active 127054612 Problem Coronary artery disease involving campo coronary artery of campo heart with other form of angina pectoris I25.118 Active 0372630830661 Problem Postconcussion syndrome F07.81 Active 78587304 Problem Chronic pain syndrome G89.4 Active 832971402 Problem Type 2 diabetes mellitus with diabetic peripheral angiopathy without gangrene E11.51 Active 797236429 Problem Paroxysmal atrial fibrillation I48.0 Active 242756934 Problem Unspecified atherosclerosis of campo arteries of extremities, unspecified extremity I70.209 Active 708579075991408 Problem Acute exacerbation of chronic obstructive pulmonary disease (COPD) J44.1 Active 245861168 Problem Crohn''s disease without complication, unspecified gastrointestinal tract location K50.90 Active 73780738 ALLERGIES Substance Reaction Event Type Date Status Penicillin V Potassium rash Drug Allergy Dec, Active Neosporin rash Drug Allergy Dec, Active Naproxen nausea Drug Allergy Dec, Active Ibuprofen rash Drug Allergy Dec, Active Glipizide hives, nausea Drug Allergy Dec, Active ENCOUNTERS Encounter Location Date Diagnosis [facility], [place] [address] [facility] [id number] [place] [address] Feb, [facility], [place] [address], [place] [address] 25 Dec, 2017 [facility], [place] [address] [place] [address] 62618- 1028 25 Dec, 2017 High risk medication use Z79.899 [facility], [place] [address], [place] [address] 3[address] 25 Dec, 2017 [facility], [place] [id number] [place] [address] 73529- 5382 24 Dec, 2017 [facility], [place] [id number] [place] [address] 66332- 9062 19 Dec, 2017 [facility], [place] [id number] [place] [address] 27268- 5241 19 Dec, 2017 [facility], [place] [id number] [place] [address] 04335- 9705 18 Dec, 2017 [facility], [place] [id number] [place] [address] 81507- 5088 14 Dec, 2017 [facility], [place] [address] [place] [address] 27089- 1132 14 Dec, 2017 [facility], [place] [id number] [place] [address] 37896- 5439 13 Dec, 2017 [facility], [place] [id number] [place] [address] 22992- 1111 Dec, Type 2 diabetes mellitus with diabetic peripheral angiopathy without gangrene E11.51 ; Contusion of face, initial encounter S00.83XA and Bronchitis J40 [facility], [place] [address], [place] [address] 0434 10 Dec, 2017 [facility], [place] [id number] [place] [address] 88185- 9952 06 Dec, 2017 [facility], [place] [address], [place] [address] 7553 Nov, [facility], [place] [id number] [place] [address] 89658- 2627 Nov, Onychomycosis B35.1 ; Hammertoe of left foot M20.42 ; Hammertoe of right foot M20.41 and Type 2 diabetes mellitus with diabetic neuropathy, without long-term current use of insulin E11.40 [facility] [id number] [place] [address] 60081- 4916 Nov, [facility] [id number] [place] [address] 03125- 4106 Nov, Bronchitis J40 [facility] [id number] [place] [address] 65224- 8023 Oct, [facility] [id number] [place] [address] 81300- 1069 Oct, Bipolar affective disorder, currently depressed, moderate F31.32 ; Vascular dementia without behavioral disturbance F01.50 and Generalized anxiety disorder F41.1 [facility] [id number] [place] [address] 77004- 0621 Oct, [facility] [id number] [place] [address] 89000- 8457 Oct, [facility] [id number] [place] [address] 25984- 4942 Oct, Edema of both legs R60.0 [facility] [id number] [place] [address] 86423- 4157 Oct, [facility] [id number] [place] [address] 83595- 8449 Sep, [facility] [id number] [place] [address] 19503- 0849 Sep, [facility] [id number] [place] [address] 52222- 9916 Sep, [facility] [address] [place] [address] 24451- 0441 Sep, Encounter for well woman exam with routine gynecological exam Z01.419 ; Screening for STDs (sexually transmitted diseases) Z11.3 ; Screening breast examination Z12.31 and Overweight (BMI 25.0-29.9) E66.3 [facility], [place] [id number] [place] [address] 63830- 8549 Sep, [facility], [place] [id number] [place] [address] 83864- 3140 Sep, [facility], [place] [id number] [place] [address] 22247- 6606 Sep, [facility], [place] [id number] [place] [address] 58960- 5493 August, [facility], [place] [id number] [place] [address] 86435- 2703 August, [facility], [place] [id number] [place] [address] 72953- 3314 August, Type 2 diabetes mellitus with diabetic neuropathy, without long-term current use of insulin E11.40 and Sprain of right ankle, unspecified ligament, initial encounter S93.401A [facility], [place] [id number] [place] [address] 84848- 8652 August, [facility], [place] [id number] [place] [address] 10636- 0362 August, [facility], [place] [id number] [place] [address] 57185- 5922 August, [facility], [place] [id number] [place] [address] 03652- 1422 August, Gastroesophageal reflux disease, esophagitis presence not specified K21.9 [facility], [place] [id number] [place] [address] 48139- 0727 August, [facility], [place] [id number] [place] [address] 39357374- 8385 August, [facility], [place] [id number] [place] [address] 60510617- 4225 August, [facility], [place] [id number] [place] [address] 50672- 6373 August, Type 2 diabetes mellitus with diabetic neuropathy, without long-term current use of insulin E11.40 and Elevated liver enzymes R74.8 [facility], [place] [id number] [place] [address] 64611- 2223 Jul, [facility], [place] [id number] [place] [address] 00139- 7821 Jul, Cough R05 [facility], [place] [id number] [place] [address] 10849- 0280 Jul, [facility], [place] [id number] [place] [address] 42128- 6589 Jul, [facility], [place] [id number] [place] [address] 68085- 2496 Jul, Bipolar affective disorder, currently depressed, moderate F31.32 ; Vascular dementia without behavioral disturbance F01.50 and Generalized anxiety disorder F41.1 [facility], [place] [id number] [place] [address] 75262- 9542 Jul, [facility], [place] [id number] [place] [address] 79501- 9013 Jul, Type 2 diabetes mellitus with diabetic neuropathy, without long-term current use of insulin E11.40 and Elevated liver enzymes R74.8 [facility], [place] [id number] [place] [address] 15487- 5622 Jul, [facility], [place] [id number] [place] [address] 51280- 2755 Jul, [facility], [place] [id number] [place] [address] 21914- 0520 Jul, [facility], [place] [id number] [place] [address] 79202- 2166 Jul, Post-menopausal Z78.0 [facility], [place] [id number] [place] [address] 28316- 2230 Jul, Stress incontinence of urine N39.3 [facility], [place] [id number] [place] [address] 50387- 6532 Jul, [facility], [place] [id number] [place] [address] 47871- 3352 Jul, [facility], [place] [id number] [place] [address] 85322- 6162 Jul, Stress incontinence of urine N39.3 and Cough R05 [facility], [place] [id number] [place] [address] 54752- 3089 Jul, [facility], [place] [id number] [place] [address] 04843- 3833 Jul, [facility], [place] [id number] [place] [address] 63267- 4369 Jul, [facility], [place] [address] 30251- 3389 Jul, Gastroesophageal reflux disease, esophagitis presence not specified K21.9 [facility], [place] [id number] [place] [address] 10779- 2804 Jun, Diabetic polyneuropathy associated with type 2 diabetes mellitus E11.42 [facility] [id number] [place] [address] 70581- 6324 Jun, Diabetic polyneuropathy associated with type 2 diabetes mellitus E11.42 ; Coronary artery disease involving campo coronary artery of campo heart with other form of angina pectoris I25.118 and Paroxysmal atrial fibrillation I48.0 [facility], [place] [id number] [place] [address] 75375- 5357 Jun, [facility], [place] [address] 47286- 9814 Jun, [facility], [place] [id number] [place] [address] 99603- 8316 Jun, Gastroenteritis K52.9 [facility], [place] [address], [place] [address]- 7713 Jun, Gastroenteritis K52.9 [facility] [id number] [place] [address] 96174- 9816 Jun, [facility], [place] [id number] [place] [address] 11348- 3724 Jun, [facility] [id number] [place] [address] 36366- 5375 Jun, Sprain of right ankle, unspecified ligament, initial encounter S93.401A ; Type 2 diabetes mellitus with diabetic neuropathy, without long-term current use of insulin E11.40 ; Atherosclerosis of campo artery of both lower extremities with intermittent claudication I70.213 ; 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.118 ; Chronic atrial fibrillation I48.2 and Crohn''s disease without complication, unspecified gastrointestinal tract location K50.90 [facility] [id number] [place] [address] 88045 -2447 17 Jun, 2017 Cough R05 and Chronic obstructive pulmonary disease with acute lower respiratory infection J44.0 [facility] [id number] [place] [address] 86499- 3897 16 Jun, 2017 [facility] [id number] [place] [address] 31749- 0204 15 Jun, 2017 Coughing R05 ; Unspecified atherosclerosis of campo arteries of extremities, unspecified extremity I70.209 ; Type 2 diabetes mellitus with diabetic peripheral angiopathy without gangrene E11.51 ; Crohn''s disease without complication, unspecified gastrointestinal tract location K50.90 ; Other chronic pancreatitis K86.1 and Chronic atrial fibrillation I48.2 [facility] [id number] [place] [address] 34821 -1742 Jun, [facility], [place] [id number] [place] [address] 25572- 8050 06 Jun, 2017 Bipolar affective disorder, currently depressed, moderate F31.32 ; Vascular dementia without behavioral disturbance F01.50 and Generalized anxiety disorder F41.1 [facility], [place] [address] [place] [address] 76569- 4453 May, Generalized anxiety disorder F41.1 [facility], [place] [id number] [place] [address] 89450- 6881 May, [facility], [place] [id number] [place] [address] 64197- 1898 May, [facility], [place] [id number] [place] [address] 78329- 5389 May, Coughing R05 [facility], [place] [address] 02083- 6719 May, [facility], [place] [id number] [place] [address] 63429- 2008 May, Bipolar affective disorder, currently depressed, moderate F31.32 ; Vascular dementia without behavioral disturbance F01.50 and Generalized anxiety disorder F41.1 [facility], [place] [id number] [place] [address] 63213- 6167 Apr, Generalized anxiety disorder F41.1 [facility], [place] [id number] [place] [address] 58401- 2823 Apr, [facility], [place] [id number] [place] [address] 25737- 3660 Apr, Vascular dementia without behavioral disturbance F01.50 ; Generalized anxiety disorder F41.1 and Bipolar affective disorder, currently depressed, moderate F31.32 [facility], [place] [address] [place] [address] 39132- 4499 Apr, Generalized anxiety disorder F41.1 [facility] [id number] [place] [address] 31152 -0099 Apr, Cough R05 and Acute exacerbation of chronic obstructive pulmonary disease (COPD) J44.1 [facility], [place] [id number] [place] [address] 98752- 6741 Apr, [facility] [address] [place] [address] 46275 -8726 Mar, Cough R05 and Cigarette nicotine dependence without complication F17.210 [facility], [place] [id number] [place] [address] 58432- 9108 Mar, [facility], [place] [id number] [place] [address] 36533- 4774 Feb, Generalized anxiety disorder F41.1 ; Major depressive disorder, recurrent episode, moderate F33.1 ; Vascular dementia without behavioral disturbance F01.50 and Unspecified psychosis F29 [facility] [id number] [place] [address] 16506- 9679 Feb, [facility], [place] [id number] [place] [address] 58821- 9768 Feb, [facility], [place] [address] 06577- 8835 Feb, Generalized anxiety disorder F41.1 [facility] [id number] [place] [address] 25108- 4510 Feb, Generalized anxiety disorder F41.1 [facility], [place] [id number] [place] [address] 24427- 7820 Feb, Dizziness R42 ; Chronic fatigue R53.82 ; Postconcussion syndrome F07.81 ; Fall, initial encounter W19.XXXA and Disorientation R41.0 [facility] [id number] [place] [address] 57843- 4792 Feb, Postconcussion syndrome F07.81 ; Injury of head, initial encounter S09.90XA ; Fall, initial encounter W19.XXXA ; Disorientation R41.0 and Acute cystitis with hematuria N30.01 [facility], [place] [address] [place] [address] 40521- 1905 Jan, Gastroesophageal reflux disease, esophagitis presence not specified K21.9 ; Post-menopausal Z78.0 and Migraine without aura and without status migrainosus, not intractable G43.009 [facility], [place] [address] [place] [address]- 0406 Jan, [facility], [place] [id number] [place] [address] 32361- 6338 Jan, Generalized anxiety disorder F41.1 ; Major depressive disorder, recurrent episode, moderate F33.1 ; Vascular dementia without behavioral disturbance F01.50 and Unspecified psychosis F29 [facility], [place] [id number] [place] [address] 64579- 7066 Jan, Pneumonia of left lower lobe due to infectious organism J18.1 [facility] [id number] [place] [address] 02324- 7167 Jan, Migraine without aura and with status migrainosus, not intractable G43.001 [facility] [id number] [place] [address] 19549 -5071 Jan, Migraine without aura and without status migrainosus, not intractable G43.009 [facility] [id number] [place] [address] 68769- 1342 Dec, Hematoma T14.8 [facility] [id number] [place] [address] 47916- 8278 Dec, [facility] [address] [place] [address] 76000 -6605 Nov, Fatigue, unspecified type R53.83 [facility], [place] [id number] [place] [address] 10759- 2917 Nov, Scabies B86 and Coronary artery disease involving campo coronary artery of campo heart with other form of angina pectoris I25.118 [facility], [place] [id number] [place] [address] 31806- 4594 Nov, [facility], [place] [id number] [place] [address] 91945- 2193 Nov, [facility] [id number] [place] [address] 54172- 0114 Oct, [facility], [place] [id number] [place] [address] 59770- 2736 Oct, Generalized anxiety disorder F41.1 and Major depressive disorder, recurrent episode, moderate F33.1 [facility], [place] [id number] [place] [address] 13064- 4731 Oct, Cramp of both lower extremities R25.2 [facility], [place] [id number] [place] [address] 98135- 7529 18 Oct, 2016 Leg cramps R25.2 [facility], [place] [id number] [place] [address] 21810- 7046 Oct, Chronic pain syndrome G89.4 [facility], [place] [id number] [place] [address] 20613- 2769 17 Oct, 2016 [facility], [place] [id number] [place] [address] 91572- 5074 14 Oct, 2016 [facility], [place] [id number] [place] [address] 25108- 4014 Oct, Routine gynecological examination Z01.419 and Screening for breast cancer Z12.31 [facility], [place] [id number] [place] [address] 94007- 8558 Sep, Diarrhea R19.7 [facility], [place] [id number] [place] [address] 94214- 9837 Sep, Back pain M54.9 [facility], [place] [id number] [place] [address] 01480- 0435 Sep, [facility], [place] [id number] [place] [address] 57815- 1175 Sep, [facility] [id number] [place] [id number] August, Xeroderma Q80.9 [facility], [place] [address] [address] August, Dementia without behavioral disturbance, unspecified dementia type F03.90 [place] [address] [address] August, Chronic pain syndrome G89.4 [place] [address] [address] August, [place] [address] [address] August, Hyperlipidemia E78.5 ; Other fatigue R53.83 and Other specified hypotension I95.89 [facility] [address] [address] August, Dysuria R30.0 ; Other fatigue R53.83 and Other specified hypotension I95.89 [place] [address] [address] August, [place] [address] 09253- 8727 Jul, Pain in left knee M25.562 and Gastroenteritis K52.9 [place] [address] 77954- 7911 Jul, [place] [address] 01445- 4563 Jul, Diarrhea R19.7 [facility] [address] 08099 -4082 Jul, Spider bite, accidental or unintentional, initial encounter T63.301A [place] [address] 46888- 0782 Jul, Primary osteoarthritis of right knee M17.11 and Arthritis M19.90 [place] [address] 12364- 7922 Jul, Generalized anxiety disorder F41.1 and Major depressive disorder, recurrent episode, moderate F33.1 [facility] [place] [address] [place] [id number] [place] [address] 87901- 1117 07 Jul, 2016 Type 2 diabetes mellitus with diabetic polyneuropathy E11.42 and Temporal headache R51 [facility] [place] [address] 96678- 9746 06 Jul, 2016 Back pain M54.9 [facility] [place] [address] 55423- 2149 05 Jul, 2016 [facility] [place] [address] 21291- 7396 Jul, [place] [address] 63776- 5398 30 Jun, 2016 Nausea R11.0 [facility] [address] 61548 -8438 23 Jun, 2016 Acute suppurative otitis media of both ears without spontaneous rupture of tympanic membranes, recurrence not specified H66.003 and COPD exacerbation J44.1 [place] [address] 12307- 9802 Jun, Generalized anxiety disorder F41.1 [place] [address] 72282- 7504 16 Jun, 2016 [facility] [address] [address] Jun, [facility] [address] [place] [id number] [place] [address] 21473 -4267 Jun, Shortness of breath R06.02 and COPD exacerbation J44.1 [facility] [place] [address] 85321- 5787 10 Jun, 2016 Eczema, unspecified type L30.9 [facility] [place] [address] 44740- 6496 09 Jun, 2016 [facility] [place] [address] 07479- 5754 May, [place] [address] [place] [id number] [place] [address] 49244- 0222 May, Muscle cramping R25.2 [place] [address] [place] [id number] [place] [address] 08605- 2768 May, [place] [address] 84304- 3555 Apr, Diarrhea R19.7 [place] [address] 49528- 6609 Apr, [place] [address] 55800- 5898 Apr, Chronic pain syndrome G89.4 [place] [address] 72263- 4582 Apr, Cramp of both lower extremities R25.2 and Vascular dementia without behavioral disturbance F01.50 [place] [address] [place] [id number] [place] [address] 09752- 1786 Apr, Type 2 diabetes mellitus with diabetic polyneuropathy E11.42 and Cigarette nicotine dependence without complication F17.210 [place] [address] [place] [id number] [place] [address] 00383- 2075 Mar, Generalized anxiety disorder F41.1 [place] [address] 72089- 3509 Feb, Generalized anxiety disorder F41.1 and Major depressive disorder, recurrent episode, moderate F33.1 [place] [address] [place] [id number] [place] [address] 89463- 4809 Feb, [facility] [address] 29557 -3676 Feb, Dysuria R30.0 and Acute cystitis with hematuria N30.01 [place] [address] 99407- 3095 Jan, [facility], [place] [id number] [place] [address] 27418- 5553 Jan, [facility], [place] [address] [place] [id number] [place] [address] 79292- 3983 Jan, [facility], [place] [address] [place] [id number] [place] [address] 21512- 5449 Jan, [facility] [address] [place] [id number] [place] [address] 35793 -1293 10 Jan, 2016 Wasp sting, accidental or unintentional, initial encounter T63.461A [place] [address] [place] [id number] [place] [address] 24472- 2384 06 Jan, 2016 Encounter for immunization Z23 [facility], [place] [address] [place] [id number] [place] [address] 02462- 6147 05 Jan, 2016 [facility] [place] [address] [place] [id number] [place] [address] 37370- 5842 Jan, [facility] [place] [address] [place] [id number] [place] [address] 29658- 8023 28 Dec, 2015 Generalized anxiety disorder F41.1 and Major depressive disorder, recurrent episode, moderate F33.1 [facility] [place] [address] [place] [address] 01958- 8934 21 Dec, 2015 Routine gynecological examination Z01.419 ; Postmenopausal Z78.0 ; Screening breast examination Z12.39 ; Osteopenia M85.80 and Breast cancer screening Z12.39 [facility], [place] [address] [address]- 8302 Dec, [facility], [place] [address] [place] [id number] [place] [address] 91989- 5496 Dec, [facility], [place] [address] [place] [id number] [place] [address] 13743- 8770 16 Dec, 2015 [facility], [place] [address] [place] [id number] [place] [address] 55038- 2900 16 Dec, 2015 [place] [address] [facility] [id number] [place] [address]- 4727 14 Dec, 2015 [facility], [place] [id number] [place] [address]- 8626 Dec, [facility], [place] [address] [facility] [id number] [place] [address]- 0867 Nov, [facility] [address], [place] [address] Nov, Cough R05 ; Other viral agents as the cause of diseases classified elsewhere B97.89 and Acute upper respiratory infection, unspecified J06.9 [facility], [place] [id number] [place] [address]- 0308 Nov, [facility], [place] [id number] [place] [address]- 8654 Nov, [facility], [place] [address], [place] [address]- 7784 Nov, [facility] [place] [id number] [place] [address]- 5117 Nov, [facility] [place] [id number] [place] [address]- 6007 Nov, [facility] [place] [address], [place] [address]- 5301 Oct, [facility] [place] [address], [place] [address]- 8756 Oct, [facility] [place] [address], [place] [address]- 2825 Oct, [facility], [place] [address] [address]- 7784 Oct, Chronic pain syndrome G89.4 [facility], [place] [address] [place] [id number] [address]- 5047 Sep, Generalized anxiety disorder F41.1 and Major depressive disorder, recurrent episode, moderate F33.1 [facility], [place] [address] [place] [id number] [place] [address] 01741- 6299 Sep, [facility] [place] [address] 17683- 9011 Sep, [facility], [place] [address] [place] [id number] [place] [address] 20252- 5076 14 Sep, 2015 Generalized anxiety disorder F41.1 [place] [address] 75198- 9205 13 Sep, 2015 Cramp of both lower extremities R25.2 and Cervicalgia M54.2 [place] [address] 08410- 7525 Sep, Generalized anxiety disorder F41.1 [place] [address] [place] [id number] [place] [address] 87200- 9846 Sep, [facility] [address] 49717 -4836 August, Rash R21 ; Itching L29.9 and Allergic response, subsequent encounter T78.40XD [place] [address] [place] [id number] [place] [address] 06468- 3188 August, Primary insomnia F51.01 [facility] [address] [place] [id number] [place] [address] 59745 -7209 August, Rash R21 ; Itching L29.9 and Allergic response, initial encounter T78.40XA [facility] [place] [address] [place] [id number] [place] [address] 26807- 1570 August, [facility] [place] [address] 80474- 3947 August, Cramp of both lower extremities R25.2 [facility], [place] [address] [place] [id number] [place] [address] 28893- 7736 August, Back pain M54.9 [facility], [place] [address] [place] [id number] [place] [address] [place] [address]- 1121 August, [facility], [place] [address], [place] [address]- 1040 August, [facility] [address], [place] [address] August, Cramp of both lower extremities R25.2 [facility], [place] [address], [place] [address]- 1068 August, [facility], [place] [address], [place] [address]- 1887 August, Syncope R55 ; Paroxysmal atrial fibrillation I48.0 ; Dementia without behavioral disturbance, unspecified dementia type F03.90 and Chronic pain syndrome G89.4 [facility], [place] [address], [place] [address]- 0546 August, Type 2 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 and Syncope R55 [facility], [place] [address], [place] [address]- 5221 Jul, [facility], [place] [address], [place] [address]- 5268 Jul, [facility], [place] [address], [place] [address]- 7904 Jul, [facility], [place] [address], [place] [address]- 0029 Jul, [facility], [place] [address], [place] [address]- 4584 Jul, [facility], [place] [address], [place] [address]- 4223 Jul, UTI (urinary tract infection) N39.0 [facility], [place] [address], [place] [address]- 3545 Jul, [facility], [place] [address], [place] [address]- 0257 Jul, Major depressive disorder, recurrent episode, moderate F33.1 and Generalized anxiety disorder F41.1 [facility], [place] [address], [place] [address]- 2241 14 Jul, 2015 Generalized anxiety disorder F41.1 [facility], [place] [address], [place] [address]- 3178 14 Jul, 2015 Diarrhea R19.7 [facility], [place] [address] [place] [address] 56717- 3857 14 Jul, 2015 [facility], [place] [address], [place] [address]- 9981 Jun, [facility], [place] [id number] [place] [address] 95360- 3745 Jun, Eczema L30.9 [facility], [place] [address], [place] [address]- 8970 Jun, [facility], [place] [address] [place] [address] 51478- 5464 Jun, COPD (chronic obstructive pulmonary disease) J44.9 [facility], [place] [address], [place] [address]- 9803 Jun, [facility], [place] [address], [place] [address]- 9313 Jun, Major depressive disorder, recurrent episode, moderate F33.1 and Generalized anxiety disorder F41.1 [facility], [place] [address], [place] [address]- 9816 May, [facility], [place] [address] [place] [id number], [place] [address]- 1313 May, UTI (urinary tract infection) N39.0 [facility], [place] [address], [place] [address]- 4784 17 May, 2015 [facility], [place] [address], [place] [address]- 1288 May, [facility], [place] [address], [place] [address]- 1404 May, [facility], [place] [address] [place] [id number] [place] [address] 35400- 0087 May, [facility], [place] [address], [place] [address]- 0994 Apr, Major depressive disorder, recurrent episode, moderate F33.1 and Generalized anxiety disorder F41.1 [facility], [place] [address], [place] [address]- 7914 Apr, COPD (chronic obstructive pulmonary disease) J44.9 [facility], [place] [address] [place] [id number] [place] [address] 62580- 2272 Apr, [facility], [place] [address] [place] [id number] [place] [address] 97568- 2692 Apr, Atrial flutter I48.92 [facility], [place] [address], [place] [address]- 8248 Apr, [facility], [place] [address], [place] [address]- 2393 Apr, [facility], [place] [address], [place] [address]- 7684 Mar, [facility] [place] [address], [place] [address]- 6427 Mar, [facility], [place] [address], [place] [address]- 5148 Mar, [facility], [place] [address], [place] [address]- 8809 Mar, Hyperlipidemia E78.5 ; Type 2 diabetes mellitus with diabetic polyneuropathy E11.42 ; Major depressive disorder, recurrent episode, moderate F33.1 and Chronic pain syndrome G89.4 [facility], [place] [address], [place] [address]- 4572 Mar, [facility], [place] [address] [facility] [id number] [address]- 4392 Mar, [facility], [place] [address], [place] [address]- 7242 Mar, [facility], [place] [address] [facility] [id number] [address]- 9963 Mar, [facility], [place] [id number] [place] [address] 84455- 8589 Feb, COPD (chronic obstructive pulmonary disease) J44.9 and Back pain M54.9 [facility], [place] [address] [facility] [id number] [place] [address] 59213- 0189 Feb, [facility], [place] [address] [id number] [place] [address] 77354- 9105 Feb, [facility], [place] [id number] [place] [address] 95513- 3732 Feb, [facility], [place] [address], [place] [address]- 1372 Feb, [facility], [place] [id number] [place] [address] 06552- 2264 Feb, [facility] [place] [address], [place] [address]- 8442 Feb, [facility], [place] [address], [place] [address]- 3141 Feb, [facility] [place] [address], [place] [address]- 3372 Feb, [facility], [place] [id number] [place] [address] 24065- 2108 Feb, Diabetes E11.9 ; Back pain M54.9 and COPD (chronic obstructive pulmonary disease) J44.9 [facility], [place] [address], [place] [address]- 7943 Jan, [facility], [place] [id number] [place] [address] 05436- 0365 Jan, Major depression, recurrent F33.9 and Generalized anxiety disorder F41.1 [facility] [place] [id number] [place] [address] 77536- 9667 Jan, Chronic pain G89.29 [facility], [place] [id number] [place] [address] 45940- 3324 Jan, [facility], [place] [address] 36597- 9600 Jan, [facility], [place] [id number] [place] [address] 73872- 2396 Jan, [facility], [place] [address] [id number] [place] [address] 47775- 0733 Jan, [facility], [place] [id number] [place] [address] 73932- 9525 Jan, Nicotine dependence F17.200 [facility], [place] [id number] [place] [address] 21273- 0000 Jan, Nicotine dependence F17.200 and Back pain M54.9 [facility] [place] [id number] [place] [address] 90569- 3297 Jan, [facility], [place] [id number] [place] [address] 50398- 3034 Dec, [facility] [place] [id number] [place] [address] 17753- 4231 25 Dec, 2014 Anxiety, generalized 300.02 and Major depression, recurrent 296.30 [facility] [place] [id number] [place] [address] 86060- 5256 24 Dec, 2014 [facility] [place] [id number] [place] [address] 81206- 1428 21 Dec, 2014 [facility] [place] [id number] [place] [address] 31783- 2743 17 Dec, 2014 [facility] [place] [address] [place] [address] [place], [place] [address]- 9815 15 Dec, 2014 [facility] [place] [id number] [place] [address] 82848- 6000 14 Dec, 2014 [facility] [place] [id number] [place] [address] 43005- 4601 11 Dec, 2014 [facility] [place] [id number] [place] [address] 87752- 8443 10 Dec, 2014 [facility] [place] [id number] [place] [address] 57671- 5196 08 Dec, 2014 Skin tear 879.8 [facility] [place] [id number] [place] [address] 92036- 6703 08 Dec, 2014 Routine gynecological examination V72.31 ; Breast cancer screening V76.10 and Family history of breast cancer in first degree relative V16.3 [facility] [place] [id number] [place] [address] 93058- 8753 03 Dec, 2014 [facility] [place] [id number] [place] [address] 80804- 7938 Dec, [facility] [place] [id number] [place] [address] 19790- 1448 Nov, [facility] [place] [id number] [place] [address] 29478- 9627 Nov, [facility] [place] [id number] [place] [address] 43583- 1180 Nov, Poor balance 781.99 and Vascular dementia, uncomplicated 290.40 [facility] [place] [id number] [place] [address] 19057- 9608 Nov, [facility] [place] [id number] [place] [address] 35344- 9349 Nov, Major depression, recurrent 296.30 and Anxiety, generalized 300.02 [facility] [place] [id number] [place] [address] 49467- 6972 Nov, [facility] [place] [address], [place] [address]- 7486 Nov, [facility] [place] [address], [place] [address]- 4663 Nov, [facility] [place] [address], [place] [address]- 1102 Nov, [facility] [place] [id number] [place] [address] 61327- 1686 Nov, Vascular dementia, uncomplicated 290.40 and Lumbago 724.2 [facility] [place] [id number] [place] [address] 52692- 5671 Nov, [facility] [place] [id number] [place] [address] 91522- 5613 Nov, [facility] [place] [id number] [place] [address] 67810- 5587 Nov, [facility] [place] [address] [address] Oct, [facility], [place] [id number] [place] [address] 49838- 5369 Oct, [facility], [place] [address] [address] Oct, [facility], [place] [id number] [place] [address] Oct, COPD (chronic obstructive pulmonary disease) 496 and Hyperlipidemia 272.4 [facility], [place] [address] [address] Oct, Major depression, recurrent 296.30 and Anxiety, generalized 300.02 [facility], [place] [address] [place] [address] Oct, [facility], [place] [address] [place] [address] Oct, [facility], [place] [id number] [place] [address] Oct, [facility], [place] [id number] [place] [address] 91188- 4978 Sep, Lumbago 724.2 and Anxiety state, unspecified 300.00 [facility], [place] [id number] [place] [address] 03965- 9719 Sep, [facility], [place] [id number] [place] [address] 61331- 5975 Sep, [facility], [place] [id number] [place] [address] 17865- 3645 August, [facility], [place] [id number] [place] [address] 65947- 5006 August, Major depression, recurrent 296.30 ; Anxiety, generalized 300.02 and No condition on [place] II V71.09 [facility], [place] [id number] [place] [address] 05957- 4237 August, [facility], [place] [id number] [place] [address] 17095- 1839 August, [facility], [place] [id number] [place] [address] 15383- 5727 Jul, [facility], [place] [address] [place] [address] Jul, [facility], [place] [address] [place] [address] Jul, [facility], [place] [id number], [place] [address] Jun, [facility], [place] [id number] [place] [address] 01374- 8330 Jun, [facility], [place] [id number], [place] [address] 74[address] Jun, [facility], [place] [id number] [place] [address] 23731- 8976 Jun, [facility] [place] [facility] [address] [id number] [place] [address]- [address] Jun, [facility] [place] [facility] [address] [id number] [place] [address]- 2480 Jun, [facility] [place] [facility] [address] [id number] [place] [address]- [address]661 Jun, [facility] [place] [facility] [address] [address] [id number] [place] [address] 17 Jun, 2014 [facility] [place] [facility] [address] [id number] [place] [address] Jun, [facility] [place] [facility] [address] [id number] [place] [address] 90[address] Jun, [facility] [place] [facility] [address] [id number] [place] [address] 1229 Jun, [facility] [place] [facility] [address] [id number] [place] [address] 7[address] 10 Jun, 2014 [facility] [place] [facility] [address] [id number] [place] [address] 2712 Jun, [facility] [place] [facility] [address] [id number] [place] [address] 0190 Jun, [facility] [place] [facility] [address] [id number] [place] [address] 2735 Jun, [facility] [place] [facility] [address] [id number] [place] [address] 6961 Jun, [facility] [place] [facility] [address] [id number] [place] [address] 4293 May, [facility] [place] [facility] [address] [id number] [place] [address] 8956 May, 2014 [facility] [place] [facility] [address] [id number] [place] [address] 9306 May, [facility] [place] [facility] [address] [id number] [place] [address]- 6656 May, 2014 [facility] [place] [facility] [address] [id number] [place] [address]- 6786 May, 2014 [facility] [place] [facility] [address] [id number] [place] [address] 2546 May, 2014 [facility] [place] [facility] [address] [id number] [place] [address] 2546 May, 2014 [facility] [place] [facility] [address] [id number] [place] [address]- 2548 May, 2014 [facility] [place] [facility] [address] [id number] [place] [address]- 5746 May, 2014 [facility] [place] [facility] [address] [facility] [id number] [place] [address]- 2738 May, 2014 [facility] [place] [facility] [address] [id number] [place] [address]- 254 May, 2014 [facility] [place] [facility] [address] [id number] [place] [address]- 8180 May, 2014 [facility] [place] [facility] [address] [facility] [id number] [place] [address]- 4504 May, [facility] [place] [facility] [address] [id number] [place] [address]- 6238 May, [facility] [place] [facility] [address] [id number] [place] [address]- 2548 Apr, [facility] [place] [facility] [address] [id number] [place] [address] 2541 Apr, [facility] [place] [facility] [address] [id number] [place] [address]- 2546 Apr, [facility] [place] [facility] [address] [id number] [place] [address]- 6900 Apr, [facility] [place] [facility] [address] [id number] [place] [address]- 7737 Apr, [facility] [address] [id number] [place] [address]- 8938 Apr, [facility] [place] [facility] [address] [id number] [place] [address]- 3083 Apr, [facility] [place] [facility] [address] [id number] [place] [address]- 6742 Apr, [facility] [place] [facility] [address] [id number] [place] [address]- 0020 Apr, [facility] [place] [facility] [address] [id number] [place] [address]- 0348 Apr, [facility] [place] [facility] [address] [id number] [place] [address]- 1184 Apr, [facility] [place] [facility] [address] [id number] [place] [address]- 7310 Apr, [facility] [place] [facility] [address] [id number] [place] [address]- 9061 Mar, [facility] [place] [facility] [address] [id number] [place] [address]- 6607 Mar, [facility] [place] [facility] [address] [id number] [place] [address]- 7707 Mar, [facility] [place] [facility] [address] [id number] [place] [address]- 1068 30 Mar, 2014 [facility] [place] [facility] [address] [id number] [place] [address]- 9298 Mar, [facility] [place] [facility] [address] [id number] [place] [address]- 9648 Mar, [facility] [place] [facility] [address] [id number] [place] [address]- 3921 Mar, [facility] [place] [facility] [address] [id number] [place] [address]- 6188 Mar, [facility] [place] [facility] [address] [id number] [place] [address]- 4614 15 Mar, 2014 [facility] [place] [facility] [address] [id number] [place] [address]- 6056 Mar, [facility] [place] [facility] [address] [id number] [place] [address] Mar, [facility] [place] [facility] [address] [id number] [place] [address]- 2066 Mar, [facility] [place] [facility] [address] [id number] [place] [address]- 4858 Mar, [facility] [place] [facility] [address] [id number] [place] [address]- 0519 Mar, [facility] [place] [facility] [address] [id number] [place] [address]- 6547 Mar, [facility] [place] [facility] [address] [id number] [place] [address]- 1778 Mar, [facility] [place] [facility] [address] [id number] [place] [address]- 7065 Mar, [facility] [place] [facility] [address] [id number] [place] [address]- 8134 Mar, [facility] [place] [facility] [address] [id number] [place] [address]- 0870 Mar, [facility] [place] [facility] [address] [id number] [place] [address]- 0269 Mar, [facility] [place] [facility] [address] [id number] [place] [address]- 9242 Feb, [facility] [place] [facility] [address] [id number] [place] [address] Feb, [facility] [place] [facility] [address] [id number] [place] [address]- 6071 Feb, [facility] [place] [facility] [address] [id number] [place] [address]- 9161 Feb, [facility] [place] [facility] [address] [id number] [place] [address] 2400 Feb, [facility] [place] [facility] [address] [id number] [place] [address]- 2605 Feb, [facility] [place] [facility] [address] [id number] [place] [address]- 9790 Feb, [facility] [place] [facility] [address] [id number] [place] [address]- 5285 Feb, [facility] [place] [facility] [address] [id number] [place] [address]- 6885 Feb, [facility] [place] [facility] [address] [id number] [place] [address]- 6273 Feb, [facility] [place] [facility] [address] [id number] [place] [address]- 6984 Feb, [facility] [place] [facility] [address] [id number], [place] [address]- 2896 Feb, [facility] [place] [facility] [address] [id number], [place] [address]- 3722 Feb, [facility] [place] [facility] [address] [id number], [place] [address]- 7975 Feb, [facility] [place] [facility] [address] [id number], [place] [address]- 1716 Feb, [facility] [place] [facility] [address] [id number], [place] [address]- 3770 Feb, [facility] [place] [facility] [address] [id number], [place] [address]- 3780 Feb, [facility] [place] [facility] [address] [id number], [place] [address]- 2736 Jan, [facility] [place] [facility] [address] [id number], [place] [address]- 3878 Jan, [facility] [place] [facility] [address] [id number] [place] [address]- 3724 Jan, [facility] [place] [facility] [address] [id number] [place] [address]- 7938 Jan, [facility] [place] [facility] [address] [id number] [place] [address]- 6610 Jan, [facility] [place] [facility] [address] [id number] [place] [address]- 5502 Jan, [facility] [place] [facility] [address] [id number] [place] [address]- 9038 Jan, [facility] [place] [facility] [address] [id number] [place] [address]- 6352 Jan, [facility] [place] [facility] [address] [id number] [place] [address]- 3821 Jan, [facility] [place] [facility] [address] [id number] [place] [address]- 4904 Jan, [facility] [place] [facility] [address] [id number] [place] [address]- 6023 Jan, [facility] [place] [facility] [address] [id number] [place] [address]- 2444 Dec, [facility] [place] [facility] [address] [id number] [place] [address]- 1052 Dec, [facility] [place] [facility] [address] [id number] [place] [address]- 4858 Nov, [facility] [place] [facility] [address] [id number] [place] [address]- 9684 Nov, [facility] [place] [facility] [address] [id number] [place] [address]- 4581 Nov, [facility] [place] [facility] [address] [id number] [place] [address]- 3107 Nov, [facility] [place] [facility] [address] [id number] [place] [address]- 4630 Nov, [facility] [place] [facility] [address] [id number] [place] [address]- 7242 Nov, [facility] [place] [facility] [address] [id number] [place] [address]- 3713 Nov, [facility] [place] [facility] [address] [id number] [place] [address]- 6031 Oct, [facility] [place] [facility] [address] [id number] [place] [address]- 2514 Oct, [facility] [place] [facility] [address] [id number] [place] [address]- 8496 Oct, [facility] [place] [facility] [address] [id number] [place] [address]- 2386 Oct, [facility] [place] [facility] [address] [id number] [place] [address]- 5787 Sep, [facility] [place] [facility] [address] [id number] [place] [address]- 6385 Sep, [facility] [place] [facility] [address] [id number] [place] [address]- 1085 Sep, [facility] [place] [facility] [address] [id number] [place] [address]- 0642 Sep, [facility] [place] [facility] [address] [id number] [place] [address]- 0458 Sep, [facility] [place] [facility] [address] [id number] [place] [address]- 4264 Sep, [facility] [place] [facility] [address] [id number] [place] [address]- 8912 Sep, [facility] [place] [facility] [address] [id number] [place] [address]- 3772 Sep, [facility] [place] [facility] [address] [id number] [place] [address]- 1981 Sep, [facility] [place] [facility] [address] [id number] [place] [address]- 4987 Sep, [facility] [place] [facility] [address] [id number] [place] [address]- 2137 Sep, [facility] [place] [facility] [address] [id number] [place] [address]- 4367 Sep, [facility] [place] [facility] [address] [id number] [place] [address]- 6554 Sep, [facility] [place] [facility] [address] [id number] [place] [address]- 4060 Sep, [facility] [place] [facility] [address] [id number] [place] [address]- 6227 August, [facility] [place] [facility] [address] [id number] [place] [address]- 3493 August, [facility] [place] [facility] [address] [id number] [place] [address]- 4484 August, [facility] [place] [facility] [address] [id number] [place] [address]- 3097 August, [facility] [place] [facility] [address] [id number] [place] [address]- 1399 August, [facility] [place] [facility] [address] [id number] [place] [address]- 3431 August, [facility] [place] [facility] [address] [id number] [place] [address]- 4378 August, [facility] [place] [facility] [address] [id number] [place] [address]- 2183 August, [facility] [place] [facility] [address] [id number] [place] [address]- 6593 August, [facility] [place] [facility] [address] [id number] [place] [address]- 3436 August, [facility] [place] [facility] [address] [id number] [place] [address]- 5828 August, [facility] [place] [facility] [address] [id number] [place] [address]- 7556 August, [facility] [address] [id number] [place] [address]- 9423 August, [facility] [address] [id number] [place] [address]- 9798 August, [facility] [address] [id number] [place] [address]- 1387 August, [facility] [address] [id number] [place] [address]- 5621 August, [facility] [address] [id number] [place] [address]- 1108 August, [facility] [address] [id number] [place] [address]- 2637 August, [facility] [address] [id number] [place] [address]- 6903 August, [facility] [address] [id number] [place] [address]- 2012 Jul, [facility] [address] [id number] [place] [address]- 0623 Jul, [facility] [address] [id number] [place] [address]- 1004 Jul, [facility] [place] [facility] [address] [id number] [place] [address]- 2594 Jul, [facility] [address] [id number] [place] [address]- 3692 Jun, [facility] [place] [facility] [address] [id number] [place] [address]- 0327 Jun, [facility] [place] [facility] [address] [id number] [place] [address]- 2276 Jun, [facility] [place] [facility] [address] [id number] [place] [address]- 8255 Jun, [facility] [place] [facility] [address] [id number] [place] [address]- 4240 17 Jun, 2013 [facility] [place] [facility] [address] [id number] [place] [address]- 6606 17 Jun, 2013 [facility] [place] [facility] [address] [id number] [place] [address]- 6753 14 Jun, 2013 [facility] [place] [facility] [address] [id number] [place] [address]- 1487 14 Jun, 2013 [facility] [place] [facility] [address] [id number] [place] [address]- 7974 Jun, [facility] [place] [facility] [address] [id number] [place] [address]- 3585 06 Jun, 2013 [facility] [place] [facility] [address] [id number] [place] [address]- 5973 27 May, 2013 [facility] [place] [facility] [address] [id number] [place] [address]- 2841 May, [facility] [place] [facility] [address] [id number] [place] [address]- 3722 May, [facility] [place] [facility] [address] [facility] [id number] [place] [address]- 6513 May, [facility] [place] [facility] [address] [id number] [place] [address]- 2018 May, [facility] [place] [facility] [address] [id number] [place] [address]- 5689 May, [facility] [place] [facility] [address] [id number] [place] [address]- 8570 20 May, 2013 [facility] [place] [facility] [address] [id number] [place] [address]- 2857 May, [facility] [place] [facility] [address] [id number] [place] [address]- 5258 May, [facility] [place] [facility] [address] [id number] [place] [address]- 5556 18 May, 2013 [facility] [place] [facility] [address] [id number] [place] [address]- 9556 May, [facility] [place] [facility] [address] [id number] [place] [address]- 3216 17 May, 2013 [facility] [place] [facility] [address] [id number] [place] [address]- 4736 May, [facility] [place] [facility] [address] [id number] [place] [address]- 5661 May, [facility] [place] [facility] [address] [id number] [place] [address]- 5446 May, [facility] [place] [facility] [address] [id number] [place] [address]- 3741 May, [facility] [place] [facility] [address] [id number] [place] [address]- 0374 May, [facility] [place] [facility] [address] [id number] [place] [address]- 6624 Apr, [facility] [place] [facility] [address] [id number] [place] [address]- 8848 Apr, [facility] [place] [facility] [address] [id number] [place] [address]- 2609 Apr, [facility] [place] [facility] [address] [id number], [place] [address]- 9135 Apr, [facility] [place] [facility] [address] [id number] [place] [address]- 3961 Apr, [facility] [place] [facility] [address] [id number] [place] [address]- 9840 Apr, [facility] [place] [facility] [address] [id number] [place] [address] Apr, [facility] [place] [facility] [address] [id number], [place] [address]- 3469 Mar, [facility] [address] [id number] [place] [address]- 4196 Mar, [facility] [place] [facility] [address] [id number] [place] [address]- 8046 Mar, [facility] [address] [id number] [place] [address]- 9054 Mar, [facility] [place] [facility] [address] [id number] [place] [address]- 7344 Mar, [facility] [address] [id number] [place] 9364 Mar, [facility] [address] [id number] [place] [address]- 9397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
[2018-02-10] MEDS ORDERED: HURRICAINE EXT TUBE (BENZOCAINE) XX PRN (11:00)
--- OUTSIDE RECORDS SUMMARY | 2018-02-10 11:00 | XMS REPORT ---
Author Author JENNY ORTEGA [facility] Address [address] [place] [address] Care Team Providers Care Laser Engineer Name Role Phone JENNY ORTEGA Unavailable PROBLEMS ALLERGIES No Information ENCOUNTERS IMMUNIZATIONS No Known Immunizations SOCIAL HISTORY No smoking Hx information available REASON FOR VISIT PLAN OF CARE VITAL SIGNS MEDICATIONS Unknown Medications RESULTS No Results PROCEDURES No Known procedures INSTRUCTIONS MEDICATIONS ADMINISTERED No Known Medications MEDICAL (GENERAL) HISTORY
--- OUTSIDE RECORDS SUMMARY | 2018-02-10 11:01 | XMS REPORT ---
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 Active 34860329 Problem Colon polyp K63.5 Active 29944496 Problem Screening breast examination Z12.39 Active 687215814 Problem Bilateral low back pain without sciatica M54.5 Active 185475568 Problem Postmenopausal Z78.0 Active 92667702 Problem Essential tremor G25.0 Active 26703887 Problem Osteopenia M85.80 Active 982969118 Problem Hyperlipidemia E78.5 Active 22767009 Problem Cigarette nicotine dependence without complication F17.210 Active 87970634 Problem Vascular dementia without behavioral disturbance F01.50 Active 54553316111382113 Problem Arthritis M19.90 Active 5324687 Problem Chronic atrial fibrillation I48.2 Active 568586150 Problem Dementia without behavioral disturbance, unspecified dementia type F03.90 Active 92685561 Problem Other chronic pancreatitis K86.1 Active 086576593 Problem Xeroderma Q80.9 Active 06080617 Problem Chronic obstructive pulmonary disease with acute lower respiratory infection J44.0 Active 932718593 Problem Type 2 diabetes mellitus with diabetic neuropathy, without long-term current use of insulin E11.40 Active 94281275 Problem Atherosclerosis of creek artery of both lower extremities with intermittent claudication I70.213 Active 215186950352661 Problem Hammertoe of right foot M20.41 Active 922852440 Problem Hammertoe of left foot M20.42 Active 501638681 Problem Migraine without aura and with status migrainosus, not intractable G43.001 Active 143842229 Problem Migraine without aura and without status migrainosus, not intractable G43.009 Active 738722023 Problem Major depressive disorder, recurrent episode, moderate F33.1 Active 877958978 Problem Unspecified psychosis F29 Active 18067036 Problem Cervicalgia M54.2 Active 2741422878164 Problem Diabetic polyneuropathy associated with type 2 diabetes mellitus E11.42 Active 69794125 Problem COPD (chronic obstructive pulmonary disease) J44.9 Active 79407400 Problem 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 Active 8828713740946 Problem Gastroparesis K31.84 Active 570828284 Problem Stress incontinence of urine N39.3 Active 16937150 Problem Osteoporosis M81.0 Active 00944851 Problem Controlled type 2 diabetes mellitus without complication, without long -term current use of insulin E11.9 Active 932964609 Problem Barretts esophagus K22.70 Active 510445174 Problem Chronic fatigue R53.82 Active 99114168 Problem History of common bile duct surgery Z98.89 Active 179221931 Problem Bipolar affective disorder, currently depressed, moderate F31.32 Active 143096942 Problem Generalized anxiety disorder F41.1 Active 994677503 Problem Gastroesophageal reflux disease, esophagitis presence not specified K21.9 Active 847323823 Problem Coronary artery disease involving creek coronary artery of creek heart with other form of angina pectoris I25.118 Active 3093489162365 Problem Postconcussion syndrome F07.81 Active 83919714 Problem Chronic pain syndrome G89.4 Active 369623429 Problem Type 2 diabetes mellitus with diabetic peripheral angiopathy without gangrene E11.51 Active 835905494 Problem Paroxysmal atrial fibrillation I48.0 Active 940954342 Problem Unspecified atherosclerosis of creek arteries of extremities, unspecified extremity I70.209 Active 245753350422410 Problem Acute exacerbation of chronic obstructive pulmonary disease (COPD) J44.1 Active 587179177 Problem Crohn''s disease without complication, unspecified gastrointestinal tract location K50.90 Active 72414736 ALLERGIES No Information ENCOUNTERS Encounter Location Date Diagnosis [facility] [address] [facility] [id number] [address] Feb, [facility] [id number] [address] Dec, [facility] [address] [facility] [id number] [place] [address] Dec, High risk medication use Z79.899 [facility] [address] [address] 25 Dec, 2017 [facility] [id number] [place] [address] 00265- 6980 24 Dec, 2017 [facility] [address] [place] [address] 84290- 0152 19 Dec, 2017 [facility] [id number] [place] [address] 32524- 2423 19 Dec, 2017 [facility] [address] [place] [address] 09745- 3264 18 Dec, 2017 [facility] [id number] [place] [address] 32792- 9936 14 Dec, 2017 [facility] [address] [place] [address] 68573- 9907 14 Dec, 2017 [facility] [address] [place] [address] 82865- 1814 13 Dec, 2017 [facility] [address] [address] 3613 13 Dec, 2017 Type 2 diabetes mellitus with diabetic peripheral angiopathy without gangrene E11.51 ; Contusion of face, initial encounter S00.83XA and Bronchitis J40 [facility] [address] [address] 7[address] Dec, [facility] [address] [place] [address] 19048- 2871 06 Dec, 2017 [facility] [address] [address] 1640 Nov, [facility] [address] [place] [address] 35227- 5870 Nov, Onychomycosis B35.1 ; Hammertoe of left foot M20.42 ; Hammertoe of right foot M20.41 and Type 2 diabetes mellitus with diabetic neuropathy, without long-term current use of insulin E11.40 [place] [facility] [address] [place] [address] 77178- 8706 Nov, [place] [address] [place] [address] 92019- 9751 Nov, Bronchitis J40 [place] [address] [place] [address] 77924- 1052 Oct, [place] [address] 55307- 4629 Oct, Bipolar affective disorder, currently depressed, moderate F31.32 ; Vascular dementia without behavioral disturbance F01.50 and Generalized anxiety disorder F41.1 [place] [address] [place] [address] 56858- 9279 Oct, [place] [address] [place] [address] 38241- 0460 Oct, [place] [address] [place] [address] 46216- 2616 Oct, Edema of both legs R60.0 [place] [address] 03498- 7823 Oct, [place] [address] [place] [address] 63904- 7814 Sep, [place] [address] [place] [address] 12276- 8006 Sep, [place] [address] [place] [address] 00616- 9352 Sep, [place] [address] [place] [address] 78905- 8624 18 Sep, 2017 Encounter for well woman exam with routine gynecological exam Z01.419 ; Screening for STDs (sexually transmitted diseases) Z11.3 ; Screening breast examination Z12.31 and Overweight (BMI 25.0-29.9) E66.3 [place] [facility] [address] [place] [address] [id number]- 3827 Sep, [facility] [address] [address] 39[address] Sep, [facility] [address] [place] [address] 392024- 6651 Sep, [facility] [address] [place] [address] 979492- 2317 August, [facility] [address] [place] [address] 796865- 8667 August, [facility] [address] [place] [address] 363096- 7679 August, Type 2 diabetes mellitus with diabetic neuropathy, without long-term current use of insulin E11.40 and Sprain of right ankle, unspecified ligament, initial encounter S93.401A [facility] [address] [place] [address] 72239- 2574 August, [facility] [address] [place] [address] 05718- 9716 August, [facility] [address] [place] [address] 16865- 1380 August, [facility] [address] [place] [address] 33259- 2994 August, Gastroesophageal reflux disease, esophagitis presence not specified K21.9 [facility] [address] [address] 4446 August, [facility] [address] [address] [address] August, [facility] [id number] 44[address] August, [facility] [id number] [address] August, Type 2 diabetes mellitus with diabetic neuropathy, without long-term current use of insulin E11.40 and Elevated liver enzymes R74.8 [facility] [address] [place] [address] 36311- 4174 Jul, [facility] [address] [place] [address] 84300- 3724 Jul, Cough R05 [facility] [address] [place] [address] 28136- 7612 Jul, [facility] [address] 34076- 3954 Jul, [facility] [address] [place] [address] 14064- 8978 Jul, Bipolar affective disorder, currently depressed, moderate F31.32 ; Vascular dementia without behavioral disturbance F01.50 and Generalized anxiety disorder F41.1 [facility] [address] [place] [address] 77211- 5669 Jul, [facility] [address] [place] [address] 91222- 4965 Jul, Type 2 diabetes mellitus with diabetic neuropathy, without long-term current use of insulin E11.40 and Elevated liver enzymes R74.8 [facility] [address] [place] [address] 22677- 2920 Jul, [facility] [id number] [place] [address] 50790- 0315 Jul, [facility] [address] [place] [address] 25741- 3709 Jul, [facility] [address] [place] [address] 45617- 0551 Jul, Post-menopausal Z78.0 [facility] [address] [place] [address] 88335- 3790 Jul, Stress incontinence of urine N39.3 [facility] [address] [place] [address] 23425- 4776 Jul, [facility] [address] [place] [address] 53286- 4460 Jul, [facility] [address] [place] [address] 36844- 8615 Jul, Stress incontinence of urine N39.3 and Cough R05 [facility] [address] [place] [address] 47317- 1432 Jul, [facility] [address] [place] [address] 76094- 3087 Jul, [facility] [address] [place] [address] 40019- 7827 Jul, [facility] [address] [place] [address] 05291- 6254 Jul, Gastroesophageal reflux disease, esophagitis presence not specified K21.9 [facility] [address] [place] [address] 66264- 7702 Jun, Diabetic polyneuropathy associated with type 2 diabetes mellitus E11.42 [facility] [address] [place] [address] 45114- 1763 Jun, Diabetic polyneuropathy associated with type 2 diabetes mellitus E11.42 ; Coronary artery disease involving creek coronary artery of creek heart with other form of angina pectoris I25.118 and Paroxysmal atrial fibrillation I48.0 [facility] [address] [place] [address] 84262- 8421 Jun, [facility] [address] [place] [address] 84673- 2802 Jun, [facility] [address] [place] [address] 80738- 1765 Jun, Gastroenteritis K52.9 [facility] [address] [place] [address] 45813- 4358 Jun, Gastroenteritis K52.9 [facility] [address] [place] [address] 51828- 1777 Jun, [facility] [address] [address]- 3237 Jun, [place] [address] [place] [address] 49622- 2844 Jun, Sprain of right ankle, unspecified ligament, initial encounter S93.401A ; Type 2 diabetes mellitus with diabetic neuropathy, without long-term current use of insulin E11.40 ; Atherosclerosis of creek artery of both lower extremities with intermittent claudication I70.213 ; 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 ; Chronic atrial fibrillation I48.2 and Crohn''s disease without complication, unspecified gastrointestinal tract location K50.90 [facility] [id number] [place] [address] 48600 -4874 17 Jun, 2017 Cough R05 and Chronic obstructive pulmonary disease with acute lower respiratory infection J44.0 [facility] [facility] [address] [place] [address] 89532- 5477 16 Jun, 2017 [place] [address] [place] [address] 84478- 4741 15 Jun, 2017 Coughing R05 ; Unspecified atherosclerosis of creek arteries of extremities, unspecified extremity I70.209 ; Type 2 diabetes mellitus with diabetic peripheral angiopathy without gangrene E11.51 ; Crohn''s disease without complication, unspecified gastrointestinal tract location K50.90 ; Other chronic pancreatitis K86.1 and Chronic atrial fibrillation I48.2 [facility] [address] [place] [address] 92773 -3118 Jun, [place] [address] [place] [address] 70555- 5041 Jun, Bipolar affective disorder, currently depressed, moderate F31.32 ; Vascular dementia without behavioral disturbance F01.50 and Generalized anxiety disorder F41.1 [place] [address] [place] [address] 80692- 0274 May, Generalized anxiety disorder F41.1 [place] [facility] [address] [place] [address] 64799- 4617 May, [facility] [address] [place] [address] 50771- 9804 May, [facility] [address] [place] [address] 66060- 2624 May, Coughing R05 [place] [address] 99654- 8070 May, [place] [address] [place] [address] 19429- 2654 May, Bipolar affective disorder, currently depressed, moderate F31.32 ; Vascular dementia without behavioral disturbance F01.50 and Generalized anxiety disorder F41.1 [place] [facility] [address] [place] [address] 09689- 1877 Apr, Generalized anxiety disorder F41.1 [facility] [address] [place] [address] 08417- 3195 Apr, [place] [facility] [address] [place] [address] 70401- 5649 Apr, Vascular dementia without behavioral disturbance F01.50 ; Generalized anxiety disorder F41.1 and Bipolar affective disorder, currently depressed, moderate F31.32 [place] [address] [place] [address] 62651- 8553 Apr, Generalized anxiety disorder F41.1 [facility] [address] [place] [address] 09850 -6834 Apr, Cough R05 and Acute exacerbation of chronic obstructive pulmonary disease (COPD) J44.1 [place] [address] [place] [address] 82936- 5106 Apr, [facility] [address] [place] [address] 39547 -7226 Mar, Cough R05 and Cigarette nicotine dependence without complication F17.210 [place] [address] [place] [address] 86019- 1378 Mar, [place] [address] [place] [address] 39816- 5329 Feb, Generalized anxiety disorder F41.1 ; Major depressive disorder, recurrent episode, moderate F33.1 ; Vascular dementia without behavioral disturbance F01.50 and Unspecified psychosis F29 [place] [address] [place] [address] 93611- 3545 Feb, [place] [address] [place] [address] 28382- 9445 Feb, [place] [address] [place] [address] 19009- 3858 Feb, Generalized anxiety disorder F41.1 [place] [address] [place] [address] 56787- 3464 Feb, Generalized anxiety disorder F41.1 [place] [address] [place] [address] 87323- 2942 Feb, Dizziness R42 ; Chronic fatigue R53.82 ; Postconcussion syndrome F07.81 ; Fall, initial encounter W19.XXXA and Disorientation R41.0 [place] [address] [place] [address] 12337- 2362 03 Feb, 2017 Postconcussion syndrome F07.81 ; Injury of head, initial encounter S09.90XA ; Fall, initial encounter W19.XXXA ; Disorientation R41.0 and Acute cystitis with hematuria N30.01 [place] [address] [place] [address] 58697- 5456 Jan, Gastroesophageal reflux disease, esophagitis presence not specified K21.9 ; Post-menopausal Z78.0 and Migraine without aura and without status migrainosus, not intractable G43.009 [place] [address] [place] [address] 88928- 7177 Jan, [place] [address] [place] [address]- 8644 Jan, Generalized anxiety disorder F41.1 ; Major depressive disorder, recurrent episode, moderate F33.1 ; Vascular dementia without behavioral disturbance F01.50 and Unspecified psychosis F29 [facility] [address] [place] [address] 39028- 7978 Jan, Pneumonia of left lower lobe due to infectious organism J18.1 [facility] [address] 99922- 2305 Jan, Migraine without aura and with status migrainosus, not intractable G43.001 [facility] [address] 59999 -8735 Jan, Migraine without aura and without status migrainosus, not intractable G43.009 [place] [address] 75598- 4675 Dec, Hematoma T14.8 [place] [address] 90132- 5528 Dec, [facility] [address] 93176 -7912 Nov, Fatigue, unspecified type R53.83 [place] [address] [place] [address] 62943- 2726 Nov, Scabies B86 and Coronary artery disease involving creek coronary artery of creek heart with other form of angina pectoris I25.118 [facility] [address] [place] [address] 27759- 8839 Nov, [place] [address] 54392- 4647 Nov, [place] [address] [place] [address] 68698- 2449 Oct, [place] [address] [place] [address] 18747- 9190 24 Nacho, 2017 Generalized anxiety disorder F41.1 and Major depressive disorder, recurrent episode, moderate F33.1 [facility] [address] [place] [address] 07545- 8196 19 Oct, 2016 Cramp of both lower extremities R25.2 [facility] [address] [place] [address] 42666- 4411 18 Oct, 2016 Leg cramps R25.2 [facility] [address] [place] [address] 94084- 3076 Oct, Chronic pain syndrome G89.4 [facility] [address] [place] [address] 13881- 3882 Oct, [facility] [address] [place] [address] 52387- 7221 Oct, [place] [address] [place] [address] 76006- 5391 Oct, Routine gynecological examination Z01.419 and Screening for breast cancer Z12.31 [facility] [address] [place] [address] 51164- 5080 Sep, Diarrhea R19.7 [facility] [address] [place] [address] 36634- 2123 Sep, Back pain M54.9 [facility] [address] [place] [address] 94549- 4038 Sep, [facility] [address] [place] [address] 61363- 8108 Sep, [facility] [address] [place] [address] 35828 -9782 August, Xeroderma Q80.9 [facility] [address] [place] [address] 40351- 2966 August, Dementia without behavioral disturbance, unspecified dementia type F03.90 [facility] [address] [place] [address] 60854- 5413 August, Chronic pain syndrome G89.4 [facility] [address] [place] [address] 89186- 2260 August, [place] [address] 73584- 4276 August, Hyperlipidemia E78.5 ; Other fatigue R53.83 and Other specified hypotension I95.89 [facility] [address] 29294 -7926 August, Dysuria R30.0 ; Other fatigue R53.83 and Other specified hypotension I95.89 [place] [address] 82417- 0338 August, [place] [address] 92504- 2960 Jul, Pain in left knee M25.562 and Gastroenteritis K52.9 [place] [address] 16825- 5127 Jul, [place] [address] 03117- 0492 Jul, Diarrhea R19.7 [facility] [place] [address] 46399 -7327 Jul, Spider bite, accidental or unintentional, initial encounter T63.301A [place] [address] 86160- 4128 Jul, Primary osteoarthritis of right knee M17.11 and Arthritis M19.90 [facility] [address] [place] [address] 44780- 2858 Jul, Generalized anxiety disorder F41.1 and Major depressive disorder, recurrent episode, moderate F33.1 [place] [address] 37929- 0071 07 Jul, 2016 Type 2 diabetes mellitus with diabetic polyneuropathy E11.42 and Temporal headache R51 [facility] [address] [place] [id number] [place] [address] 06 Jul, 2016 Back pain M54.9 [facility] [address] [address] Jul, [facility] [address] [address] Jul, [facility] [address] [address] 30 Jun, 2016 Nausea R11.0 [facility] [address] [address] Jun, Acute suppurative otitis media of both ears without spontaneous rupture of tympanic membranes, recurrence not specified H66.003 and COPD exacerbation J44.1 [place] [address] [address] Jun, Generalized anxiety disorder F41.1 [facility] [address] [address] 16 Jun, 2016 [facility] [address] [address] Jun, [facility] [id number] [place] [address] 89047 -0037 Jun, Shortness of breath R06.02 and COPD exacerbation J44.1 [facility] [facility] [id number] [place] [address] 75622- 9105 10 Jun, 2016 Eczema, unspecified type L30.9 [facility] [id number] [place] [address] 35096- 0184 09 Jun, 2016 [place] [address] 92175- 0431 24 May, 2016 [facility] [address] 65121- 4242 May, Muscle cramping R25.2 [facility] [id number] [place] [address] 03199- 3590 13 May, 2016 [facility] [address] 76097- 2244 Apr, Diarrhea R19.7 [facility] [id number] [place] [address] 23800- 1049 Apr, [facility] [address] 00496- 0071 Apr, Chronic pain syndrome G89.4 [place] [address] 75680- 3249 Apr, Cramp of both lower extremities R25.2 and Vascular dementia without behavioral disturbance F01.50 [facility] [id number] [place] [address] 47434- 9492 Apr, Type 2 diabetes mellitus with diabetic polyneuropathy E11.42 and Cigarette nicotine dependence without complication F17.210 [place] [id number] [place] [address] 87609- 6721 Mar, Generalized anxiety disorder F41.1 [facility] [id number] [place] [address] 17381- 8993 Feb, Generalized anxiety disorder F41.1 and Major depressive disorder, recurrent episode, moderate F33.1 [place] [id number] [place] [address] 56711- 0289 Feb, [facility] [id number] [place] [address] 91496 -0765 Feb, Dysuria R30.0 and Acute cystitis with hematuria N30.01 [facility] [id number] [place] [address] 62770- 4528 Jan, [facility] [id number] [place] [address] 68193- 9185 Jan, [facility] [address] 82196- 7298 Jan, [facility] [address] [place] [address] 98042- 9779 Jan, [facility] [id number] [place] [address] 18439 -2677 10 Jan, 2016 Wasp sting, accidental or unintentional, initial encounter T63.461A [facility] [id number] [place] [address] 29078- 1925 06 Jan, 2016 Encounter for immunization Z23 [facility] [id number] [place] [address] 85325- 6773 Jan, [facility] [id number] [place] [address] 05499- 7698 Jan, [facility] [id number] [place] [address] 44607- 1719 28 Dec, 2015 Generalized anxiety disorder F41.1 and Major depressive disorder, recurrent episode, moderate F33.1 [facility] [id number] [place] [address] 34331- 1095 21 Dec, 2015 Routine gynecological examination Z01.419 ; Postmenopausal Z78.0 ; Screening breast examination Z12.39 ; Osteopenia M85.80 and Breast cancer screening Z12.39 [facility] [id number] [place] [address] 72580- 3472 20 Dec, 2015 [facility] [id number] [place] [address] 61186- 9005 19 Dec, 2015 [facility] [id number] [place] [address] 64144- 4017 16 Dec, 2015 [facility] [id number] [place] [address] 88230- 6398 16 Dec, 2015 [facility] [id number] [place] [address] 09841- 8015 14 Dec, 2015 [facility] [id number] [place] [address] 05978- 9278 Dec, [facility] [address] [address]- 3445 Nov, [facility] [address] [address] Nov, Cough R05 ; Other viral agents as the cause of diseases classified elsewhere B97.89 and Acute upper respiratory infection, unspecified J06.9 [facility] [address] [address]- 9999 Nov, [facility] [address] [address]- 0481 Nov, [facility] [address] [place] [address] 28534- 2145 Nov, [facility] [id number] [address]- 1787 Nov, [facility] [id number] [place] [address] 66619- 7923 Nov, [facility] [address] [address]- 8662 Oct, [facility] [address] [address]- 4476 Oct, [facility] [address] [address]- 8433 Oct, [facility] [address] [address]- 9812 Oct, Chronic pain syndrome G89.4 [facility] [address] [address]- 5271 Sep, Generalized anxiety disorder F41.1 and Major depressive disorder, recurrent episode, moderate F33.1 [facility] [address] [address]- 8317 Sep, [facility] [address] [place] [address] 79855- 8855 20 Sep, 2015 [facility] [id number] [place] [address] 49652- 8343 14 Sep, 2015 Generalized anxiety disorder F41.1 [facility] [id number] [place] [address] 19551- 8452 13 Sep, 2015 Cramp of both lower extremities R25.2 and Cervicalgia M54.2 [facility] [facility] [address] [place] [address] 18390- 6264 06 Sep, 2015 Generalized anxiety disorder F41.1 [place] [id number] [place] [address] 94791- 4143 Sep, [facility] [place] [place] [place] [address] 36592 -9010 August, Rash R21 ; Itching L29.9 and Allergic response, subsequent encounter T78.40XD [place] [address] [place] [address] 28989- 7748 August, Primary insomnia F51.01 [facility] [place] [place] [place] [address] 98590 -9135 August, Rash R21 ; Itching L29.9 and Allergic response, initial encounter T78.40XA [place] [address] [place] [address] 93122- 8366 August, [facility] [address] [place] [address] 60860- 1126 August, Cramp of both lower extremities R25.2 [facility] [facility] [address] [place] [address] 82165- 4205 August, Back pain M54.9 [place] [address] [place] [address] 70022- 9875 August, [facility] [id number] [place] [address] 58054- 0049 August, [facility] [address] [address] -2604 August, Cramp of both lower extremities R25.2 [facility] [id number] [address]- 4933 August, [facility] [address] [address]- 4523 August, Syncope R55 ; Paroxysmal atrial fibrillation I48.0 ; Dementia without behavioral disturbance, unspecified dementia type F03.90 and Chronic pain syndrome G89.4 [facility] [address] [place] [address] 97236- 6218 August, Type 2 diabetes mellitus with diabetic polyneuropathy E11.42 and Syncope R55 [facility] [id number] [address]- 7540 Jul, [facility] [id number] [place] [address] 07250- 9705 Jul, [facility] [address] [address]- 2179 Jul, [facility] [id number] [place] [address] 65884- 1102 Jul, [facility] [address] [address]- 6772 Jul, [facility] [address] [address]- 8868 Jul, UTI (urinary tract infection) N39.0 [facility] [address] [address]- 2784 Jul, [facility] [id number] [place] [address] 76867- 8485 Jul, Major depressive disorder, recurrent episode, moderate F33.1 and Generalized anxiety disorder F41.1 [facility] [address] [address]- 1579 Jul, Generalized anxiety disorder F41.1 [facility] [address] [address]- 8544 14 Jul, 2015 Diarrhea R19.7 [facility] [address] [address]- 0708 14 Jul, 2015 [facility] [address] [address]- 0382 Jun, [facility] [id number] [place] [address] 17011- 9108 Jun, Eczema L30.9 [facility] [id number] [place] [address] 83134- 0334 Jun, [facility] [id number] [place] [address] 65209- 3544 Jun, COPD (chronic obstructive pulmonary disease) J44.9 [facility] [id number] [place] [address] 99668- 6614 Jun, [facility] [address] [place] [address] 22806- 1645 Jun, Major depressive disorder, recurrent episode, moderate F33.1 and Generalized anxiety disorder F41.1 [facility] [address] [address]- 3670 May, [facility] [address] [address]- 3160 May, UTI (urinary tract infection) N39.0 [facility] [address] [address]- 1805 17 May, 2015 [facility] [address] [address]- 7115 May, [facility] [address] [address]- 8100 May, [facility] [address] [place] [address] 75245- 6844 May, [facility] [address] [address]- 9763 Apr, Major depressive disorder, recurrent episode, moderate F33.1 and Generalized anxiety disorder F41.1 [facility] [address] [address]- 9558 Apr, COPD (chronic obstructive pulmonary disease) J44.9 [facility] [id number] [place] [address] 14051- 0862 Apr, [facility] [id number] [place] [address] 65066- 3430 Apr, Atrial flutter I48.92 [facility] [address] [place] [address] 21366- 5804 Apr, [facility] [address] [place] [address] 39415- 3731 Apr, [facility] [address] [place] [address] 99461- 4229 Mar, [facility] [id number] [place] [address] 19299- 7419 Mar, [facility] [address] [address]- 8800 Mar, [facility] [address] [place] [address] 43788- 7926 Mar, Hyperlipidemia E78.5 ; Type 2 diabetes mellitus with diabetic polyneuropathy E11.42 ; Major depressive disorder, recurrent episode, moderate F33.1 and Chronic pain syndrome G89.4 [facility] [address] 0272 Mar, [facility] [id number] [address]- 9356 Mar, [facility] [id number] [place] [address] 78305- 5746 Mar, [facility] [id number] [place] [address] 97587- 0974 Mar, [facility] [id number] [place] [address] 99418- 8346 Feb, COPD (chronic obstructive pulmonary disease) J44.9 and Back pain M54.9 [facility] [id number] [place] [address] 56868- 0473 Feb, [facility] [id number] [place] [address] 68515- 8360 Feb, [facility] [id number] [place] [address] 05835- 7571 Feb, [facility] [id number] [place] [address] 75795- 6471 Feb, [facility] [id number] [place] [address] 79874- 0896 Feb, [facility] [id number] [place] [address] 96752- 3718 Feb, [facility] [id number] [place] [address] 89220- 6935 Feb, [facility] [id number] [place] [address] 26125- 7135 Feb, [facility] [address] [place] [address] 51664- 1867 Feb, Diabetes E11.9 ; Back pain M54.9 and COPD (chronic obstructive pulmonary disease) J44.9 [facility] [address] [place] [address] 60363- 3535 Jan, [facility] [address] [place] [address] 80212- 2310 Jan, Major depression, recurrent F33.9 and Generalized anxiety disorder F41.1 [facility] [address] [place] [address] 06006- 2219 Jan, Chronic pain G89.29 [facility] [id number] [place] [address] 14986- 4328 Jan, [facility] [id number] [place] [address] 67859- 3968 Jan, [facility] [id number] [place] [address] 60443- 5746 Jan, [facility] [id number] [place] [address] 49712- 1981 Jan, [facility] [address] [place] [address] 57158- 3515 Jan, Nicotine dependence F17.200 [facility] [address] [place] [address] 49049- 1384 Jan, Nicotine dependence F17.200 and Back pain M54.9 [facility] [id number] [place] [address] 60448- 4469 Jan, [facility] [address] [place] [address] 74945- 1391 28 Dec, 2014 [facility] [address] [place] [address] 51118- 7848 25 Sep, 2014 Anxiety, generalized 300.02 and Major depression, recurrent 296.30 [facility] [id number] [place] [address] 95362- 2615 24 Sep, 2014 [facility] [id number] [place] [address] 40546- 6153 21 Sep, 2014 [facility] [id number] [place] [address] 97373- 6566 17 Sep, 2014 [facility] [address] [place] [address] 01774- 8382 15 Sep, 2014 [facility] [id number] [place] [address] 79157- 9515 14 Sep, 2014 [facility] [address] [address]- 4626 11 Dec, 2014 [facility] [address] [address]- 1535 Dec, [facility] [address] [address]- 2107 08 Dec, 2014 Skin tear 879.8 [facility] [address] [place] [address] 65412- 9660 08 Dec, 2014 Routine gynecological examination V72.31 ; Breast cancer screening V76.10 and Family history of breast cancer in first degree relative V16.3 [facility] [address] [place] [address] 32755- 3614 Dec, [facility] [address] [place] [address] 25444- 4172 Dec, [facility] [id number] [place] [address] 53042- 2684 Nov, [facility] [address] [place] [address] 19963- 8342 Nov, [facility] [address] [place] [address] 48016- 9974 Nov, Poor balance 781.99 and Vascular dementia, uncomplicated 290.40 [facility] [address] [place] [address] 75795- 7048 Nov, [facility] [address] [place] [address] 76532- 9030 Nov, Major depression, recurrent 296.30 and Anxiety, generalized 300.02 [facility] [id number] [place] [address] 72570- 4095 Nov, [facility] [address] [place] [address] 61664- 3686 Nov, [facility] [id number] [place] [address] 46466- 2910 Nov, [facility] [address] [address]- 3471 Nov, [facility] [address] [address]- 6513 Nov, Vascular dementia, uncomplicated 290.40 and Lumbago 724.2 [facility] [id number] [place] [address] 12880- 5983 Nov, [facility] [id number] [address]- 0463 Nov, [facility] [id number] [place] [address] 94206- 4328 Nov, [facility] [id number] [address]- 6765 Oct, [facility] [id number] [place] [address] 60965- 7978 Oct, [facility] [address] [address]- 2420 Oct, [facility] [id number] [place] [address] 80374- 3603 Oct, COPD (chronic obstructive pulmonary disease) 496 and Hyperlipidemia 272.4 [facility] [address] [address]- 2101 Oct, Major depression, recurrent 296.30 and Anxiety, generalized 300.02 [facility] [address] [address]- 7312 Oct, [facility] [address] [address]- 9572 Oct, [facility] [address] [address]- 9669 Oct, [facility] [address] [address]- 9504 Sep, Lumbago 724.2 and Anxiety state, unspecified 300.00 [facility] [address] [address]- 4990 Sep, [facility] [id number] [place] [address] 77862- 7108 Sep, [facility] [address] [address]- 1441 August, [facility] [id number] [place] [address] 06756- 8660 August, Major depression, recurrent 296.30 ; Anxiety, generalized 300.02 and No condition on [place] II V71.09 [facility] [id number] [place] [address] 37683- 4981 August, [facility] [id number] [place] [address] 59533- 0647 August, [facility] [id number] [place] [address] 23726- 1978 Jul, [facility] [id number] [address]- 9193 Jul, [facility] [id number] [place] [address] 53164- 0829 Jul, [facility] [address] [address]- 3779 Jun, [facility] [id number] [address] Jun, [facility] [id number] [address] Jun, [facility] [id number] [place] [address] Jun, [facility] [id number] [address] Jun, [facility] [id number] [address] 23 Jun, 2014 [facility] [place] [facility] [address] [id number] [place] [address] 23 Jun, 2014 [facility] [place] [facility] [address] [id number] [place] [address]- [address] 17 Jun, 2014 [facility] [place] [facility] [address] [id number] [place] [address] 13 Jun, 2014 [facility] [place] [facility] [address] [id number] [place] [address]- [address] 13 Jun, 2014 [facility] [place] [facility] [address] [id number] [place] [address]- [address]094 10 Jun, 2014 [facility] [place] [facility] [address] [id number] [place] [address]- 4751 10 Jun, 2014 [facility] [place] [facility] [address] [id number] [place] [address]- [address]37 07 Jun, 2014 [facility] [place] [facility] [address] [id number] [place] [address]- 16[address] 07 Jun, 2014 [facility] [place] [facility] [address] [id number] [place] [address]- [address]297 02 Jun, 2014 [facility] [place] [facility] [address] [facility] [id number] [place] [address]- 1418 Jun, 2014 [facility] [place] [facility] [address] [id number] [place] [address]- [address]608 May, 2014 [facility] [place] [facility] [address] [id number] [place] [address]- [address] May, 2014 [facility] [place] [facility] [address] [id number] [place] [address]- [address]75 May, 2014 [facility] [place] [facility] [address] [id number] [place] [address]- [address] May, 2014 [facility] [place] [facility] [address] [id number] [place] [address]- 9621 May, 2014 [facility] [place] [facility] [address] [id number] [place] [address]- 9510 May, 2014 [facility] [place] [facility] [address] [id number] [place] [address]- [address]456 May, 2014 [facility] [place] [facility] [address] [id number] [place] [address]- [address]236 May, 2014 [facility] [place] [facility] [address] [id number] [place] [address]- [address]187 May, 2014 [facility] [place] [facility] [address] [id number] [place] [address]- [address] May, 2014 [facility] [place] [facility] [address] [id number] [place] [address]- [address]296 May, 2014 [facility] [place] [facility] [address] [id number] [place] [address] 2989 May, 2014 [facility] [place] [facility] [address] [id number] [place] [address]- 9545 May, 2014 [facility] [place] [facility] [address] [id number] [place] [address]- 4779 May, [facility] [place] [facility] [address] [facility] [id number] [place] [address]- [address] Apr, [facility] [place] [facility] [address] [id number] [place] [address]- 1444 Apr, [facility] [place] [facility] [address] [id number] [place] [address] Apr, [facility] [place] [facility] [address] [id number] [place] [address]- 8468 Apr, [facility] [place] [facility] [address] [id number] [place] [address]- [address]99 Apr, [facility] [place] [facility] [address] [id number] [place] [address]- 6180 Apr, [facility] [place] [facility] [address] [id number] [place] [address]- 3943 Apr, [facility] [address] [id number] [place] [address]- 75[address] Apr, [facility] [place] [facility] [address] [id number] [place] [address] Apr, [facility] [address] [id number] [place] [address] Apr, [facility] [address] [id number] [place] [address] 95[address] Apr, [facility] [address] [id number] [place] [address] 69[address] Apr, [facility] [address] [id number] [place] [address] 5[address] Mar, [facility] [address] [id number] [place] [address]- 1643 31 Mar, 2014 [facility] [address] [id number] [place] [address]- 2023 30 Mar, 2014 [facility] [place] [facility] [address] [id number] [place] [address] 4989 30 Mar, 2014 [facility] [address] [id number] [place] [address]- 1147 29 Mar, 2014 [facility] [place] [facility] [address] [id number] [place] [address]- 9632 29 Mar, 2014 [facility] [place] [facility] [address] [id number] [place] [address]- 7[address] Mar, [facility] [place] [facility] [address] [id number] [place] [address]- 8348 19 Mar, 2014 [facility] [place] [facility] [address] [id number] [place] [address] 15 Mar, 2014 [facility] [place] [facility] [address] [id number] [place] [address] Mar, [facility] [place] [facility] [address] [id number] [place] [address]- 3732 Mar, [facility] [place] [facility] [address] [id number] [place] [address]- 6626 Mar, [facility] [place] [facility] [address] [id number] [place] [address]- 5745 Mar, [facility] [place] [facility] [address] [id number] [place] [address]- 4510 Mar, [facility] [place] [facility] [address] [id number] [place] [address]- 9743 Mar, [facility] [place] [facility] [address] [id number] [place] [address]- 5323 Mar, [facility] [place] [facility] [address] [id number] [place] [address]- 7394 Mar, [facility] [place] [facility] [address] [id number] [place] [address]- 9620 Mar, [facility] [place] [facility] [address] [id number] [place] [address]- 1169 Mar, [facility] [place] [facility] [address] [id number] [place] [address]- 3289 Mar, [facility] [place] [facility] [address] [id number] [place] [address]- 8179 Feb, [facility] [place] [facility] [address] [id number] [place] [address]- 7182 Feb, [facility] [place] [facility] [address] [id number] [place] [address]- 7123 Feb, [facility] [place] [facility] [address] [id number] [place] [address]- 6871 Feb, [facility] [place] [facility] [address] [id number] [place] [address]- 4693 Feb, [facility] [place] [facility] [address] [id number] [place] [address]- 8399 Feb, [facility] [place] [facility] [address] [id number] [place] [address]- 5377 Feb, [facility] [place] [facility] [address] [id number] [place] [address]- 7933 Feb, [facility] [place] [facility] [address] [id number] [place] [address]- 1419 Feb, [facility] [place] [facility] [address] [id number] [place] [address]- 0655 Feb, [facility] [place] [facility] [address] [id number] [place] [address]- 5041 Feb, [facility] [place] [facility] [address] [id number] [place] [address]- 3476 Feb, [facility] [place] [facility] [address] [id number] [place] [address]- 6232 Feb, [facility] [place] [facility] [address] [id number] [place] [address]- 3[address] Feb, [facility] [place] [facility] [address] [id number] [place] [address] 1889 Feb, [facility] [place] [facility] [address] [id number] [place] [address]- 3132 Feb, [facility] [place] [facility] [address] [id number] [place] [address]- 0401 Feb, [facility] [place] [facility] [address] [id number] [place] [address]- 0350 Jan, [facility] [place] [facility] [address] [id number] [place] [address]- 6982 Jan, [facility] [place] [facility] [address] [id number] [place] [address]- 1530 Jan, [facility] [place] [facility] [address] [id number] [place] [address]- 8302 Jan, [facility] [place] [facility] [address] [id number] [place] [address]- 2802 Jan, [facility] [place] [facility] [address] [id number] [place] [address]- 3332 Jan, [facility] [place] [facility] [address] [id number] [place] [address]66 Jan, [facility] [place] [facility] [address] [id number] [place] [address]- 5933 Jan, [facility] [place] [facility] [address] [id number] [place] [address]- 4601 Jan, [facility] [place] [facility] [address] [id number] [place] [address]- 5958 Jan, [facility] [place] [facility] [address] [id number] [place] [address]- 8478 Jan, [facility] [place] [facility] [address] [id number] [place] [address]- 9670 Dec, [facility] [place] [facility] [address] [id number] [place] [address]- 3011 Dec, [facility] [place] [facility] [address] [id number] [place] [address]- 7120 Nov, [facility] [place] [facility] [address] [id number] [place] [address]- 1759 Nov, [facility] [place] [facility] [address] [id number] [place] [address]- 5428 Nov, [facility] [place] [facility] [address] [id number] [place] [address]- 8530 Nov, [facility] [place] [facility] [address] [id number] [place] [address]- 1509 Nov, [facility] [place] [facility] [address] [id number] [place] [address] Nov, [facility] [place] [facility] [address] [id number] [place] [address]- 0290 Nov, [facility] [place] [facility] [address] [id number] [place] [address]- 0456 Oct, [facility] [place] [facility] [address] [id number] [place] [address]- 9259 Oct, [facility] [place] [facility] [address] [id number] [place] [address]- 2753 Oct, [facility] [place] [facility] [address] [id number] [place] [address]- 2442 Oct, [facility] [place] [facility] [address] [id number] [place] [address]- 8049 Sep, [facility] [place] [facility] [address] [id number] [place] [address]- 2805 Sep, [facility] [place] [facility] [address] [id number] [place] [address]- 3116 Sep, [facility] [place] [facility] [address] [id number] [place] [address]- 7338 Sep, [facility] [place] [facility] [address] [id number] [place] [address]- 5694 Sep, [facility] [place] [facility] [address] [id number] [place] [address]- 8851 Sep, [facility] [place] [facility] [address] [id number] [place] [address]- 4227 Sep, [facility] [place] [facility] [address] [id number] [place] [address]- 8246 Sep, [facility] [place] [facility] [address] [id number] [place] [address]- 2257 Sep, [facility] [place] [facility] [address] [id number] [place] [address]- 5797 Sep, [facility] [place] [facility] [address] [id number] [place] [address]- 2706 Sep, [facility] [place] [facility] [address] [id number] [place] [address]- 3910 Sep, [facility] [place] [facility] [address] [id number] [place] [address]- 3423 Sep, [facility] [place] [facility] [address] [id number] [place] [address]- 0497 Sep, [facility] [place] [facility] [address] [id number] [place] [address]- 7463 August, [facility] [place] [facility] [address] [id number] [place] [address]- 9341 August, [facility] [place] [facility] [address] [id number] [place] [address]- 8877 August, [facility] [place] [facility] [address] [id number] [place] [address]- 6306 August, [facility] [address] [id number] [place] [address]- 1088 August, [facility] [address] [id number] [place] [address]- 1814 August, [facility] [place] [facility] [address] [id number] [place] [address]- 7297 August, [facility] [address] [id number] [place] [address]- 2943 August, [facility] [place] [facility] [address] [id number] [place] [address]- 7592 August, [facility] [place] [facility] [address] [id number] [place] [address]- 2675 August, [facility] [place] [facility] [address] [id number] [place] [address]- 1555 August, [facility] [place] [facility] [address] [id number] [place] [address]- 0147 August, [facility] [place] [facility] [address] [id number] [place] [address]- 8088 August, [facility] [place] [facility] [address] [id number] [place] [address]- 7355 August, [facility] [place] [facility] [address] [id number] [place] [address]- 0006 August, [facility] [place] [facility] [address] [id number] [place] [address]- 7412 August, [facility] [place] [facility] [address] [id number] [place] [address]- 3867 August, [facility] [address] [id number] [place] [address]- 9204 August, [facility] [place] [facility] [address] [id number] [place] [address]- 7435 August, [facility] [address] [id number] [place] [address]- 5708 Jul, [facility] [place] [facility] [address] [id number] [place] [address]- 2465 Jul, [facility] [place] [facility] [address] [id number] [place] [address]- 4516 Jul, [facility] [place] [facility] [address] [id number] [place] [address]- 6364 Jul, [facility] [place] [facility] [address] [id number] [place] [address]- 0436 Jun, [facility] [place] [facility] [address] [id number] [place] [address]- 9292 Jun, [facility] [place] [facility] [address] [id number] [place] [address]- 9997 Jun, [facility] [place] [facility] [address] [id number] [place] [address]- 6383 Jun, [facility] [place] [facility] [address] [id number] [place] [address]- 1750 Jun, [facility] [place] [facility] [address] [id number] [place] [address]- 2983 17 Jun, 2013 [facility] [place] [facility] [address] [id number] [place] [address]- 7262 Jun, [facility] [place] [facility] [address] [id number] [place] [address]- 2188 14 Jun, 2013 [facility] [place] [facility] [address] [facility] [id number] [place] [address]- 0743 Jun, [facility] [place] [facility] [address] [id number] [place] [address]- 2825 Jun, [facility] [place] [facility] [address] [id number] [place] [address]- 3300 May, [facility] [place] [facility] [address] [id number] [place] [address]- 5127 May, [facility] [place] [facility] [address] [facility] [id number] [place] [address]- 4173 May, [facility] [place] [facility] [address] [facility] [id number] [place] [address]- 0132 May, [facility] [place] [facility] [address] [facility] [id number] [place] [address]- 3946 May, [facility] [place] [facility] [address] [facility] [id number] [place] [address]- 8711 May, [facility] [place] [facility] [address] [facility] [id number] [place] [address]- 8624 20 May, 2013 [facility] [place] [facility] [address] [facility] [id number] [place] [address]- 0990 May, [facility] [place] [facility] [address] [id number] [place] [address]- 4963 May, [facility] [place] [facility] [address] [facility] [id number] [place] [address]- 3105 18 May, 2013 [facility] [place] [facility] [address] [facility] [id number] [place] [address]- 5135 May, [facility] [place] [facility] [address] [id number] [place] [address]- 4872 17 May, 2013 [facility] [place] [facility] [address] [id number] [place] [address]- 1116 May, [facility] [place] [facility] [address] [id number] [place] [address]- 7066 May, [facility] [place] [facility] [address] [id number] [place] [address]- 5427 May, [facility] [place] [facility] [address] [id number] [place] [address]- 5397 May, [facility] [place] [facility] [address] [id number] [place] [address]- 0975 May, [facility] [place] [facility] [address] [id number] [place] [address]- 7011 Apr, [facility] [place] [facility] [address] [id number] [place] [address]- 0941 Apr, [facility] [place] [facility] [address] [id number] [place] [address]- 3574 Apr, [facility] [place] [facility] [address] [facility] [id number] [place] [address]- 8552 Apr, [facility] [place] [facility] [address] [id number] [place] [address]- 9152 Apr, [facility] [place] [facility] [address] [id number] [place] [address]- 3112 Apr, [facility] [place] [facility] [address] [id number] [place] [address]- 7356 Apr, [facility] [place] [facility] [address] [id number] [place] [address]- 6386 Mar, [facility] [place] [facility] [address] [id number] [place] [address]- 8266 Mar, [facility] [place] [facility] [address] [id number] [place] [address]- 3563 Mar, [facility] [address] [id number] [place] [address]- 9296 Mar, [facility] [address] [id number] [place] 0436 Mar, [facility] [address] [id number] [place] [address]- 8546 Mar, [facility] [address] [id number] [place] [address]- 2336 Mar, [facility] [address] [id number] [place] [address]578 Mar, [facility] [address] [id number] [place] [address]- 3773 Mar, [facility] [address] [id number] [place] [address]- 8866 Mar, [facility] [address] [id number] [place] [address]- 3373 Mar, [facility] [address] [id number] [place] [address]- 3504 Feb, [facility] [address] [id number] [place] [address]- 1478 Feb, [facility] [address] [id number] [place] [address]- 4933 Feb, [facility] [address] [id number] [place] [address]- 7078 Feb, [facility] [address] [id number] [place] [address]- 6416 Feb, [facility] [address] [id number] [place] [address]- 8574 Feb, [facility] [address] [id number] [place] [address]- 1380 15 Feb, 2013 [facility] [place] [facility] [address] [id number] [place] [address]- 3344 14 Feb, 2013 [facility] [place] [facility] [address] [id number] [place] [address]- 3757 14 Feb, 2013 [facility] [place] [facility] [address] [id number] [place] [address]- 6020 13 Feb, 2013 [facility] [place] [facility] [address] [id number] [place] [address]- 4120 13 Feb, 2013 [facility] [place] [facility] [address] [id number] [place] [address]- 6883 12 Feb, 2013 [facility] [place] [facility] [address] [id number] [place] [address]- 1924 Feb, [facility] [place] [facility] [address] [id number] [place] [address]- 7908 Feb, [facility] [place] [facility] [address] [id number] [place] [address]- 6652 Feb, [facility] [place] [facility] [address] [id number] [place] [address]- 8465 Feb, [facility] [place] [facility] [address] [id number] [place] [address]- 0892 Jan, [facility] [place] [facility] [address] [id number] [place] [address]- 8134 24 Jan, 2013 [facility] [place] [facility] [address] [id number] [place] [address]- 6731 24 Jan, 2013 [facility] [place] [facility] [address] [id number] [place] [address]- 0401 Jan, [facility] [place] [facility] [address] [id number] [place] [address]- 6355 24 Jan, 2013 [facility] [place] [facility] [address] [id number] [place] [address]- 8086 Jan, [facility] [place] [facility] [address] [id number] [place] [address]- 7686 Jan, [facility] [place] [facility] [address] [id number] [place] [address]- 0961 Jan, [facility] [place] [facility] [address] [id number] [place] [address]- 1323 10 Jan, 2013 [facility] [place] [facility] [address] [id number] [place] [address]- 5184 27 Dec, 2012 [facility] [place] [facility] [address] [id number] [place] [address]- 6560 20 Dec, 2012 [facility] [place] [facility] [address] [id number] [place] [address]- 2086 19 Dec, 2012 [facility] [place] [facility] [address] [id number] [place] [address]- 6358 10 Dec, 2012 [facility] [place] [facility] [address] [id number] [place] [address]- 9215 04 Dec, 2012 [facility] [place] [facility] [address] [id number] [place] [address]- 2409 Dec, [facility] [place] [facility] [address] [id number] [place] [address]- 1476 Nov, [facility] [place] [facility] [address] [id number] [place] [address]- 4749 Nov, [facility] [place] [facility] [address] [id number] [place] [address]- 7196 Nov, [facility] [place] [facility] [address] [id number] [place] [address]- 5601 Nov, [facility] [place] [facility] [address] [id number] [place] [address]- 4590 Nov, [facility] [place] [facility] [address] [id number] [place] [address]471 Nov, [facility] [place] [facility] [address] [id number] [place] [address] Nov, [facility] [place] [facility] [address] [id number] [place] [address]66 15 Nov, 2012 [facility] [place] [facility] [address] [id number] [place] [address] 14 Nov, 2012 [facility] [place] [facility] [address] [id number] [place] [address] 2546 Nov, [facility] [place] [facility] [address] [id number] [place] [address] Oct, [facility] [place] [facility] [address] [id number] [place] [address]593 Oct, [facility] [place] [facility] [address] [id number] [place] [address] Oct, [facility] [place] [facility] [address] [id number] [place] [address]98 Oct, [facility] [place] [facility] [address] [id number] [place] [address]- 4454 Oct, [facility] [place] [facility] [address] [id number] [place] [address] 9517 Oct, [facility] [place] [facility] [address] [id number] [place] [address] Oct, [facility] [place] [facility] [address] [id number] [place] [address] 2232 Oct, [facility] [place] [facility] [address] [id number] [place] [address]- 9275 Sep, [facility] [place] [facility] [address] [id number] [place] [address] 78[address] Sep, [facility] [place] [facility] [address] [id number] [place] [address]- 5904 Sep, [facility] [place] [facility] [address] [id number] [place] [address]- [address]283 Sep, [facility] [place] [facility] [address] [id number] [place] [address]- 5986 Sep, [facility] [address] [id number] [place] [address]- 9074 Sep, [facility] [address] [id number] [place] [address]- 1996 Sep, [facility] [address] [id number] [place] [address]- 490[address] Sep, [facility] [address] [id number] [place] [address]- 6756 August, [facility] [address] [id number] [place] [address]- 8503 August, [facility] [address] [id number] [place] [address] 9713 August, [facility] [address] [id number] [place] [address] 9861 August, [facility] [address] [id number] [place] [address]- 1769 August, [facility] [address] [id number] [place] [address]- 7470 Jul, [facility] [place] [facility] [address] [id number] [place] [address]- 9449 Jul, [facility] [place] [facility] [address] [id number] [place] [address]- 1560 Jul, [facility] [place] [facility] [address] [id number] [address]666 Jul, [facility] [place] [facility] [address] [id number] [place] [address]- 7966 Jul, [facility] [place] [facility] [address] [id number] [place] [address]- 4315 Jun, [facility] [place] [facility] [address] [id number] [place] [address]- 3567 Jun, [facility] [place] [facility] [address] [id number] [place] [address]- 3151 15 Jun, 2012 [facility] [address] [id number] [place] [address]- 9626 14 Jun, 2012 [facility] [address] [id number] [place] [address]- 8139 Jun, [facility] [address] [id number] [place] [address]- 4431 08 Jun, 2012 [facility] [place] [facility] [address] [id number] [place] [address]- 8992 08 Jun, 2012 [facility] [address] [id number] [place] [address]- 1868 02 Jun, 2012 [facility] [address] [id number] [place] [address]- 4972 Jun, [facility] [address] [id number] [place] [address]- 5657 27 May, 2012 [facility] [address] [id number] [place] [address]- 5536 25 May, 2012 [facility] [address] [id number] [place] [address]- 9767 May, [facility] [address] [id number] [place] [address]- 3634 May, [facility] [address] [id number] [place] [address]- 2089 Apr, [facility] [place] [facility] [address] [id number] [place] [address]- 0932 Apr, [facility] [place] [facility] [address] [id number] [place] [address]- 4754 Apr, [facility] [place] [facility] [address] [id number] [place] [address]- 6478 Apr, [facility] [place] [facility] [address] [id number] [place] [address]- 8804 Apr, [facility] [address] [id number] [place] [address]- 1289 Apr, [facility] [address] [id number] [place] [address]- 9590 Apr, [facility] [address] [id number] [place] [address]- 7565 Mar, [facility] [address] [place] [id number] Mar, [facility] [address] [id number] [place] [address] 4337 Mar, [facility] [address] [id number] [place] [address]- 3025 Mar, [facility] [address] [id number] [place] [address]- 8381 Mar, [facility] [address] [id number] [place] [address]- 7280 Mar, [facility] [address] [id number] [place] [address]- 2355 Mar, [facility] [address] [id number] [place] [address]- 6846 Mar, [facility] [address] [id number] [place] [address]- 4182 Mar, [facility] [address] [id number] [place] [address]- 2112 Mar, [facility] [address] [id number] [place] [address]- 8423 Mar, [facility] [address] [id number] [place] [address]- 2156 Mar, [facility] [address] [id number] [place] [address]- 2876 Mar, [facility] [address] [id number] [place] [address]- 0709 Mar, [facility] [place] [facility] [address] [id number] [place] [address]- 3967 Mar, [facility] [place] [facility] [address] [id number] [place] [address] Mar, [facility] [place] [facility] [address] [id number] [place] [address] Mar, [facility] [place] [facility] [address] [id number] [place] [address] Feb, [facility] [place] [facility] [address] [id number] [place] [address] 0936 Feb, [facility] [place] [facility] [address] [id number] [place] [address]- 2865 Feb, [facility] [place] [facility] [address] [id number] [place] [address] Feb, [facility] [place] [facility] [address] [id number] [place] [address] 4985 Feb, [facility] [place] [facility] [address] [id number] [place] [address] 112[address] Feb, [facility] [place] [facility] [address] [id number] [place] [address]- 4670 Feb, [facility] [place] [facility] [address] [id number] [place] [address] Feb, [facility] [place] [facility] [address] [id number] [place] [address] Feb, [facility] [place] [facility] [address] [id number] [place] [address]- 5243 Feb, [facility] [place] [facility] [address] [id number] [place] [address] 25[address] Feb, [facility] [place] [facility] [address] [id number] [place] [address] 8[address] Feb, [facility] [place] [facility] [address] [id number] [place] [address]- 0692 Feb, [facility] [place] [facility] [address] [id number] [place] [address]- 8011 Feb, [facility] [place] [facility] [address] [id number] [place] [address] Feb, [facility] [place] [facility] [address] [id number] [place] [address]- 4964 Feb, [facility] [place] [facility] [address] [id number] [place] [address]- 4[address] Jan, [facility] [place] [facility] [address] [id number] [place] [address] Jan, [facility] [place] [facility] [address] [id number] [place] [address]- 2349 Jan, [facility] [place] [facility] [address] [id number] [place] [address]- 8903 Jan, [facility] [place] [facility] [address] [id number] [place] [address]- 3408 Jan, [facility] [place] [facility] [address] [id number] [place] [address]- 8094 Jan, [facility] [place] [facility] [address] [facility] [id number] [place] [address]- 5628 Jan, [facility] [place] [facility] [address] [id number] [place] [address]- 3434 Jan, [facility] [place] [facility] [address] [id number] [place] [address] 3[address] Jan, [facility] [place] [facility] [address] [id number] [place] [address]- 5532 Jan, [facility] [place] [facility] [address] [facility] [id number] [place] [address]- 2070 Jan, [facility] [place] [facility] [address] [id number] [place] [address] 8286 Jan, [facility] [place] [facility] [address] [id number] [place] [address]- 9733 Jan, [facility] [place] [facility] [address] [id number] [place] [address]- 5908 Jan, [facility] [place] [facility] [address] [id number] [place] [address]- 0463 08 Jan, 2012 [facility] [place] [facility] [address] [id number] [place] [address]- 2834 05 Jan, 2012 [facility] [place] [facility] [address] [id number] [place] [address]- 8968 04 Jan, 2012 [facility] [place] [facility] [address] [id number] [place] [address]- 0154 21 Dec, 2011 [facility] [place] [facility] [address] [id number] [place] [address]- 8176 20 Dec, 2011 [facility] [place] [facility] [address] [id number] [place] [address]- 7339 18 Dec, 2011 [facility] [place] [facility] [address] [id number] [place] [address]- 6567 18 Dec, 2011 [facility] [place] [facility] [address] [id number] [place] [address]- 8014 10 Dec, 2011 [facility] [place] [facility] [address] [id number] [place] [address]- 3131 10 Dec, 2011 [facility] [place] [facility] [address] [id number] [place] [address]- 2880 10 Dec, 2011 [facility] [place] [facility] [address] [id number] [place] [address]- 6579 07 Dec, 2011 [facility] [place] [facility] [address] [id number] [place] [address]- 9675 30 Nov, 2011 [facility] [place] [facility] [address] [id number] [place] [address]- 4519 25 Nov, 2011 [facility] [place] [facility] [address] [id number] [place] [address]- 7205 Nov, [facility] [place] [facility] [address] [id number] [place] [address]- 1100 Nov, [facility] [place] [facility] [address] [id number] [place] [address]- 0056 Nov, [facility] [place] [facility] [address] [id number] [place] [address]- 2816 Nov, [facility] [place] [facility] [address] [id number] [place] [address]- 0060 Oct, [facility] [place] [facility] [address] [id number] [place] [address]- 9764 Oct, [facility] [place] [facility] [address] [id number] [place] [address]- 8651 Oct, [facility] [place] [facility] [address] [id number] [place] [address]- 0675 Oct, [facility] [place] [facility] [address] [id number] [place] [address]- 3564 Oct, [facility] [place] [facility] [address] [id number] [place] [address]- 8598 Oct, [facility] [place] [facility] [address] [id number] [place] [address]- 0087 Oct, [facility] [place] [facility] [address] [id number] [place] [address]- 2852 Sep, [facility] [place] [facility] [address] [id number] [place] [address]- 7267 Sep, [facility] [place] [facility] [address] [id number] [place] [address]- 3014 Sep, [facility] [place] [facility] [address] [id number] [place] [address]- 2318 Sep, [facility] [place] [facility] [address] [id number] [place] [address]- 7567 Sep, [facility] [place] [facility] [address] [id number] [place] [address]- 0334 15 Sep, 2011 [facility] [address] [id number] [place] [address]- 5044 14 Sep, 2011 [facility] [address] [id number] [place] [address]- 5979 11 Sep, 2011 [facility] [address] [id number] [place] [address]- 7948 05 Sep, 2011 [facility] [address] [id number] [place] [address]- 4899 04 Sep, 2011 [facility] [address] [id number] [place] [address]- 7575 August, [facility] [address] [id number] [place] [address]- 0567 August, [facility] [address] [id number] [place] [address]- 3904 August, [facility] [address] [id number] [place] [address]- 4774 August, [facility] [address] [id number] [place] [address]- 0864 August, [facility] [address] [id number] [place] [address]- 2201 Jul, [facility] [address] [id number] [place] [address]- 8602 Jul, [facility] [address] [id number] [place] [address]- 6806 25 Jul, 2011 [facility] [place] [facility] [address] [id number] [place] [address]- 4254 17 Jul, 2011 [facility] [address] [id number] [place] [address]- 8742 Jul, [facility] [address] [id number] [place] [address]- 4161 Jul, [facility] [address] [id number] [place] [address]- 2266 Jul, [facility] [place] [facility] [address] [id number] [place] [address]- 3926 Jun, [facility] [place] [facility] [address] [id number] [place] [address]- 5426 Jun, [facility] [place] [facility] [address] [id number] [place] Jun, [facility] [place] [facility] [address] [id number] [place] [address]- 1076 Jun, [facility] [place] [facility] [address] [id number] [place] [address]- 1166 Jun, [facility] [place] [facility] [address] [facility] [id number] [place] [address]- 7476 May, [facility] [place] [facility] [address] [id number] [place] [address]- 2416 May, [facility] [place] [facility] [address] [id number] [place] [address]- 7396 May, [facility] [place] [facility] [address] [facility] [id number] [place] [address]- 2196 May, [facility] [place] [facility] [address] [id number] [place] [address]- 3616 May, [facility] [place] [facility] [address] [id number] [place] [address]- 2626 May, [facility] [place] [facility] [address] [id number] [place] [address]- 9826 Apr, [facility] [place] [facility] [address] [id number] [place] [address]- 7966 Mar, [facility] [place] [facility] [address] [id number] [place] [address]- 2736 Feb, [facility] [place] [facility] [address] [id number] [place] [address]- 7605 07 Feb, 2011 [facility] [place] [facility] [address] [id number] [place] [address]- 7381 03 Feb, 2011 [facility] [place] [facility] [address] [id number] [place] [address] 02 Feb, 2011 [facility] [place] [facility] [address] [id number] [place] [address]- 6654 31 Jan, 2011 [facility] [place] [facility] [address] [id number] [place] [address]- 7022 27 Jan, 2011 [facility] [place] [facility] [address] [id number] [place] [address]- 8690 26 Jan, 2011 [facility] [place] [facility] [address] [id number] [place] [address]- 2776 24 Jan, 2011 [facility] [place] [facility] [address] [id number] [place] [address]- 7315 14 Jan, 2011 [facility] [place] [facility] [address] [id number] [place] [address]- 4479 Dec, [facility] [place] [facility] [address] [id number] [place] [address]- 6897 Oct, [facility] [place] [facility] [address] [id number] [place] [address]- 0940 August, [facility] [place] [facility] [address] [id number] [place] [address]- 7008 29 Mar, 2010 [facility] [place] [facility] [address] [id number] [place] [address]- 3185 27 Mar, 2010 [facility] [place] [facility] [address] [id number] [place] [address] 2547 16 Mar, 2010 [facility] [place] [facility] [address] [id number] [place] [address]- 2547 15 Mar, 2010 [facility] [place] [facility] [address] [id number] [place] [address]893 15 Mar, 2010 [facility] [place] [facility] [address] [id number] [place] [address]- 7323 08 Mar, 2010 [facility] [place] [facility] [address] [id number] [place] [address]- 6089 Mar, [facility] [place] [facility] [address] [id number] [place] [address]- 3763 Feb, [facility] [place] [facility] [address] [id number] [place] [address]- 1551 Feb, [facility] [address] [id number] [place] [address]- 0167 Feb, [facility] [place] [facility] [address] [id number] [place] [address]- 8460 Jan, [facility] [address] [id number] [place] [address]- 7770 Jan, [facility] [address] [id number] [place] [address]- 1318 Jan, [facility] [place] [facility] [address] [id number] [place] [address]- 5880 Nov, [facility] [place] [facility] [address] [id number] [place] [address]- 8307 Sep, [facility] [place] [facility] [address] [id number] [place] [address]- 9598 August, [facility] [place] [facility] [address] [id number] [place] [address]- 8798 30 Mar, 2009 [facility] [place] [facility] [address] [id number] [place] [address]- 0094 Mar, [facility] [place] [facility] [address] [id number] [place] [address]- 9472 17 Feb, 2009 [facility] [place] [facility] [address] [id number] [place] [address]- 6098 10 Feb, 2009 [facility] [place] [facility] [address] [id number] [place] [address]- 0137 Feb, [facility] [id number] [place] [address]- 5438 Feb, [facility] [id number] [place] [address]- 0129 Feb, [facility] [id number] [place] [address]- 3439 Jan, [facility] [id number] [place] [address]- 0233 Jan, [facility] [id number] [place] [address]- 2523 Jan, [facility] [id number] [place] [address]- 5729 Jan, [facility] [id number] [place] [address]- 7356 Nov, [facility] [id number] [place] [address]- 3747 Sep, [facility] [id number] [place] [address]- 5180 August, [facility] [id number] [place] [address]- 7308 Jul, [facility] [address] [id number] [address]- 5874 May, IMMUNIZATIONS No Known Immunizations SOCIAL HISTORY Never Assessed REASON FOR VISIT [facility] PLAN OF CARE VITAL SIGNS MEDICATIONS Unknown [...] Knee Surgery 07/16/17 Hospitalization History [facility]- left hand/wrist swelling 10/09/2017
--- OUTSIDE RECORDS SUMMARY | 2018-02-10 11:03 | XMS REPORT ---
Author Author JENNY ORTEGA [facility] Address [address] [place] [address] Care Team Providers Care Piece Presser Name Role Phone JENNY ORTEGA Unavailable PROBLEMS Type Condition ICD9-CM Code GDB44-FT Code Onset Dates Condition Status SNOMED Code Problem 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 Active 16912002 Problem Colon polyp K63.5 Active 93769829 Problem Screening breast examination Z12.39 Active 988596283 Problem Bilateral low back pain without sciatica M54.5 Active 497525506 Problem Postmenopausal Z78.0 Active 56166618 Problem Essential tremor G25.0 Active 56200301 Problem Osteopenia M85.80 Active 030649653 Problem Hyperlipidemia E78.5 Active 17557073 Problem Cigarette nicotine dependence without complication F17.210 Active 85219304 Problem Vascular dementia without behavioral disturbance F01.50 Active [id number] Problem Arthritis M19.90 Active 9256355 Problem Chronic atrial fibrillation I48.2 Active 255515711 Problem Dementia without behavioral disturbance, unspecified dementia type F03.90 Active 39526518 Problem Other chronic pancreatitis K86.1 Active 260786344 Problem Xeroderma Q80.9 Active 72652213 Problem Chronic obstructive pulmonary disease with acute lower respiratory infection J44.0 Active 665324595 Problem Type 2 diabetes mellitus with diabetic neuropathy, without long-term current use of insulin E11.40 Active 05008713 Problem 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 Active 131748319890280 Problem Hammertoe of right foot M20.41 Active 557835471 Problem Hammertoe of left foot M20.42 Active 051317641 Problem Migraine without aura and with status migrainosus, not intractable G43.001 Active 333815673 Problem Migraine without aura and without status migrainosus, not intractable G43.009 Active 411192392 Problem Major depressive disorder, recurrent episode, moderate F33.1 Active 529706566 Problem Unspecified psychosis F29 Active 07212788 Problem Cervicalgia M54.2 Active 0673231957384 Problem Diabetic polyneuropathy associated with type 2 diabetes mellitus E11.42 Active 07356802 Problem COPD (chronic obstructive pulmonary disease) J44.9 Active 47300247 Problem 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.118 Active 9079366293414 Problem Gastroparesis K31.84 Active 971285175 Problem Stress incontinence of urine N39.3 Active 52411734 Problem Osteoporosis M81.0 Active 06211898 Problem Controlled type 2 diabetes mellitus without complication, without long -term current use of insulin E11.9 Active 918809548 Problem Barretts esophagus K22.70 Active 248699198 Problem Chronic fatigue R53.82 Active 57316847 Problem History of common bile duct surgery Z98.89 Active 798979244 Problem Bipolar affective disorder, currently depressed, moderate F31.32 Active 905671843 Problem Generalized anxiety disorder F41.1 Active 910276061 Problem Gastroesophageal reflux disease, esophagitis presence not specified K21.9 Active 145275132 Problem Coronary artery disease involving grand traverse coronary artery of grand traverse heart with other form of angina pectoris I25.118 Active 6683006401114 Problem Postconcussion syndrome F07.81 Active 16355833 Problem Chronic pain syndrome G89.4 Active 382727051 Problem Type 2 diabetes mellitus with diabetic peripheral angiopathy without gangrene E11.51 Active 966415294 Problem Paroxysmal atrial fibrillation I48.0 Active 037265266 Problem Unspecified atherosclerosis of grand traverse arteries of extremities, unspecified extremity I70.209 Active 184827016409208 Problem Acute exacerbation of chronic obstructive pulmonary disease (COPD) J44.1 Active 031884816 Problem Crohn''s disease without complication, unspecified gastrointestinal tract location K50.90 Active 56856473 ALLERGIES No Information ENCOUNTERS Encounter Location Date Diagnosis [facility] [address] [facility] [id number] [address] Feb, [facility] [id number] [address] Dec, [facility] [address] [facility] [id number], [place] [address] Dec, High risk medication use Z79.899 [facility] [address] [address] 25 Dec, 2017 [facility] [address] [address] 264[address] 24 Dec, 2017 [facility] [address] [address] 6984 19 Dec, 2017 [facility] [id number] [place] [address] 44555- 1732 19 Dec, 2017 [facility] [address] [address] 0147 18 Dec, 2017 [facility] [id number] [place] [address] 81439- 6105 14 Dec, 2017 [facility] [address] [address] 3835 14 Dec, 2017 [facility] [address] [address] 6[address] 13 Dec, 2017 [facility] [address] [address] Dec, Type 2 diabetes mellitus with diabetic peripheral angiopathy without gangrene E11.51 ; Contusion of face, initial encounter S00.83XA and Bronchitis J40 [facility] [address] [address] Dec, [facility] [address] [address] 3212 06 Dec, 2017 [facility] [address] [address] 12[address] Nov, [facility] [address] [address] 00[address] Nov, Onychomycosis B35.1 ; Hammertoe of left foot M20.42 ; Hammertoe of right foot M20.41 and Type 2 diabetes mellitus with diabetic neuropathy, without long-term current use of insulin E11.40 [place] [id number] [place] [address] 40024- 4202 Nov, [place] [address] 11509- 9201 Nov, Bronchitis J40 [place] [id number] [place] [address] 47806- 1939 Oct, [place] [address] 66998- 4684 Oct, Bipolar affective disorder, currently depressed, moderate F31.32 ; Vascular dementia without behavioral disturbance F01.50 and Generalized anxiety disorder F41.1 [place] [address] 26352- 1527 Oct, [place] [address] 01668- 4502 Oct, [place] [id number] [place] [address] 43563- 6659 Oct, Edema of both legs R60.0 [place] [address] 73885- 4094 Oct, [place] [id number] [place] [address] 72902- 8689 Sep, [place] [id number] [place] [address] 76099- 4912 Sep, [place] [id number] [place] [address] 12395- 2437 Sep, [place] [id number] [place] [address] 50577- 1170 18 Sep, 2017 Encounter for well woman exam with routine gynecological exam Z01.419 ; Screening for STDs (sexually transmitted diseases) Z11.3 ; Screening breast examination Z12.31 and Overweight (BMI 25.0-29.9) E66.3 [place] [address] 55610- 7042 Sep, [facility] [address], [place] [address] 3235 Sep, [facility] [id number] [place] [address] 817773- 9440 Sep, [facility] [address] [place] [address] 31337- 3598 August, [facility] [id number] [place] [address] 94177- 0966 August, [facility] [address] [place] [address] 47045- 5862 August, Type 2 diabetes mellitus with diabetic neuropathy, without long-term current use of insulin E11.40 and Sprain of right ankle, unspecified ligament, initial encounter S93.401A [facility] [id number] [place] [address] 86638- 8016 August, [facility] [id number] [place] [address] 14774- 2712 August, [facility] [id number] [place] [address] 25133- 9828 August, [facility] [address] [place] [address] 26600- 0298 August, Gastroesophageal reflux disease, esophagitis presence not specified K21.9 [facility] [address], [place] [address] 2510 August, [facility] [address], [place] [address] 5100 August, [facility] [address] [place] [address] 433535- 6187 August, [facility] [address] [address] August, Type 2 diabetes mellitus with diabetic neuropathy, without long-term current use of insulin E11.40 and Elevated liver enzymes R74.8 [facility] [id number] [place] [address] 17361- 4738 Jul, [facility] [address] 01682- 7907 Jul, Cough R05 [facility] [address] 91689- 3114 Jul, [facility] [address] 71932- 0592 Jul, [facility] [address] 03540- 9151 Jul, Bipolar affective disorder, currently depressed, moderate F31.32 ; Vascular dementia without behavioral disturbance F01.50 and Generalized anxiety disorder F41.1 [facility] [address] 80948- 1466 Jul, [facility] [address] 45361- 2575 Jul, Type 2 diabetes mellitus with diabetic neuropathy, without long-term current use of insulin E11.40 and Elevated liver enzymes R74.8 [facility] [address] 47497- 6441 Jul, [facility] [address] 05627- 7715 Jul, [facility] [address] 28251- 6794 17 Jul, 2017 [facility] [address] 57719- 8563 Jul, Post-menopausal Z78.0 [facility] [address] 46145- 5600 Jul, Stress incontinence of urine N39.3 [facility] [id number] [place] [address] 36937- 0088 Jul, [facility] [id number] [place] [address] 04199- 6949 Jul, [facility] [address] 04703- 8106 Jul, Stress incontinence of urine N39.3 and Cough R05 [facility] [address] 12183- 0545 Jul, [facility] [address] 44897- 8548 Jul, [facility] [address] 29616- 2026 Jul, [facility] [address] 00107- 2788 Jul, Gastroesophageal reflux disease, esophagitis presence not specified K21.9 [facility] [address] 29979- 0142 Jun, Diabetic polyneuropathy associated with type 2 diabetes mellitus E11.42 [facility] [id number] [place] [address] 22158- 2569 Jun, Diabetic polyneuropathy associated with type 2 diabetes mellitus E11.42 ; Coronary artery disease involving grand traverse coronary artery of grand traverse heart with other form of angina pectoris I25.118 and Paroxysmal atrial fibrillation I48.0 [facility] [id number] [place] [address] 24455- 3449 Jun, [facility] [id number] [place] [address] 84566- 9509 Jun, [facility] [id number] [place] [address] 33319- 8295 Jun, Gastroenteritis K52.9 [facility] [id number] [place] [address] 02330- 5889 Jun, Gastroenteritis K52.9 [facility] [id number] [place] [address] 62932- 7272 Jun, [place] [address], [place] [address]- 1510 Jun, [place] [id number] [place] [address] 19363- 4479 Jun, Sprain of right ankle, unspecified ligament, initial encounter S93.401A ; Type 2 diabetes mellitus with diabetic neuropathy, without long-term current use of insulin E11.40 ; 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 ; 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.118 ; Chronic atrial fibrillation I48.2 and Crohn''s disease without complication, unspecified gastrointestinal tract location K50.90 [facility] [id number] [place] [address] 41825 -9480 17 Jun, 2017 Cough R05 and Chronic obstructive pulmonary disease with acute lower respiratory infection J44.0 [place] [id number] [place] [address] 10879- 2813 16 Jun, 2017 [place] [id number] [place] [address] 98926- 2101 15 Jun, 2017 Coughing R05 ; Unspecified atherosclerosis of grand traverse arteries of extremities, unspecified extremity I70.209 ; Type 2 diabetes mellitus with diabetic peripheral angiopathy without gangrene E11.51 ; Crohn''s disease without complication, unspecified gastrointestinal tract location K50.90 ; Other chronic pancreatitis K86.1 and Chronic atrial fibrillation I48.2 [facility] [id number] [place] [address] 37487 -3469 Jun, [place] [id number] [place] [address] 30962- 8313 Jun, Bipolar affective disorder, currently depressed, moderate F31.32 ; Vascular dementia without behavioral disturbance F01.50 and Generalized anxiety disorder F41.1 [place] [id number] [place] [address] 14377- 4107 May, Generalized anxiety disorder F41.1 [place] [id number], [place] [address]- 0229 May, [facility] [id number] [place] [address] 83824- 0011 May, [facility] [id number] [place] [address] 94238- 6077 May, Coughing R05 [place] [id number] [place] [address] 89199- 0575 May, [facility] [id number] [place] [address] 31516- 9563 May, Bipolar affective disorder, currently depressed, moderate F31.32 ; Vascular dementia without behavioral disturbance F01.50 and Generalized anxiety disorder F41.1 [place] [id number] [place] [address] 66195- 0422 Apr, Generalized anxiety disorder F41.1 [place] [id number] [place] [address] 44956- 0942 Apr, [facility] [id number] [place] [address] 78839- 0179 Apr, Vascular dementia without behavioral disturbance F01.50 ; Generalized anxiety disorder F41.1 and Bipolar affective disorder, currently depressed, moderate F31.32 [place] [id number] [place] [address] 24854- 4555 Apr, Generalized anxiety disorder F41.1 [facility] [id number] [place] [address] 31164 -4207 Apr, Cough R05 and Acute exacerbation of chronic obstructive pulmonary disease (COPD) J44.1 [place] [address] 60798- 0090 Apr, [facility] [id number] [place] [address] 04039 -4234 Mar, Cough R05 and Cigarette nicotine dependence without complication F17.210 [place] [address] [place] [address]- 8872 Mar, [facility] [id number] [place] [address] 17982- 1277 Feb, Generalized anxiety disorder F41.1 ; Major depressive disorder, recurrent episode, moderate F33.1 ; Vascular dementia without behavioral disturbance F01.50 and Unspecified psychosis F29 [place] [address] 59630- 6330 Feb, [facility] [address] 22420- 2135 Feb, [place] [address] 39954- 2653 Feb, Generalized anxiety disorder F41.1 [place] [address] 47068- 6954 Feb, Generalized anxiety disorder F41.1 [place] [address] 07618- 9923 Feb, Dizziness R42 ; Chronic fatigue R53.82 ; Postconcussion syndrome F07.81 ; Fall, initial encounter W19.XXXA and Disorientation R41.0 [place] [id number] [place] [address] 63152- 7497 Feb, Postconcussion syndrome F07.81 ; Injury of head, initial encounter S09.90XA ; Fall, initial encounter W19.XXXA ; Disorientation R41.0 and Acute cystitis with hematuria N30.01 [place] [id number] [place] [address] 99081- 2485 Jan, Gastroesophageal reflux disease, esophagitis presence not specified K21.9 ; Post-menopausal Z78.0 and Migraine without aura and without status migrainosus, not intractable G43.009 [place] [id number] [place] [address] 93393- 7306 Jan, [place] [address] 84041- 2347 Jan, Generalized anxiety disorder F41.1 ; Major depressive disorder, recurrent episode, moderate F33.1 ; Vascular dementia without behavioral disturbance F01.50 and Unspecified psychosis F29 [facility] [id number] [place] [address] 44961- 4919 Jan, Pneumonia of left lower lobe due to infectious organism J18.1 [facility] [id number] [place] [address] 79492- 2117 Jan, Migraine without aura and with status migrainosus, not intractable G43.001 [facility] [id number] [place] [address] 64640 -8654 Jan, Migraine without aura and without status migrainosus, not intractable G43.009 [place] [id number] [place] [address] 09731- 9392 Dec, Hematoma T14.8 [place] [id number] [place] [address] 34987- 7958 Dec, [facility] [id number] [place] [address] 19421 -1589 Nov, Fatigue, unspecified type R53.83 [place] [id number] [place] [address] 07481- 5617 Nov, Scabies B86 and Coronary artery disease involving grand traverse coronary artery of grand traverse heart with other form of angina pectoris I25.118 [place] [id number] [place] [address] 63891- 5397 Nov, [place] [id number] [place] [address] 16783- 2441 Nov, [place] [id number] [place] [address] 55018- 9998 Oct, [facility] [id number] [place] [address] 52147- 0367 Oct, Generalized anxiety disorder F41.1 and Major depressive disorder, recurrent episode, moderate F33.1 [facility] [id number] [place] [address] 20859- 7194 19 Oct, 2016 Cramp of both lower extremities R25.2 [facility] [id number] [place] [address] 12424- 1984 18 Oct, 2016 Leg cramps R25.2 [facility] [id number] [place] [address] 53430- 8969 17 Oct, 2016 Chronic pain syndrome G89.4 [facility] [id number] [place] [address] 92697- 2227 Oct, [place] [id number] [place] [address] 38904- 5932 Oct, [place] [id number] [place] [address] 16754- 8511 Oct, Routine gynecological examination Z01.419 and Screening for breast cancer Z12.31 [place] [id number] [place] [address] 68268- 9728 Sep, Diarrhea R19.7 [facility] [id number] [place] [address] 13381- 3758 Sep, Back pain M54.9 [place] [id number] [place] [address] 79522- 2608 Sep, [facility] [id number] [place] [address] 23769- 5682 Sep, [facility] [id number] [place] [address] 21521 -7868 August, Xeroderma Q80.9 [facility] [id number] [place] [address] 03174- 5586 August, Dementia without behavioral disturbance, unspecified dementia type F03.90 [facility] [id number] [place] [address] 62541- 9972 August, Chronic pain syndrome G89.4 [place] [id number] [place] [address] 88027- 3286 August, [place] [id number] [place] [address] 43524- 9288 August, Hyperlipidemia E78.5 ; Other fatigue R53.83 and Other specified hypotension I95.89 [facility] [address] 35040 -7899 August, Dysuria R30.0 ; Other fatigue R53.83 and Other specified hypotension I95.89 [place] [address] 15317- 3612 August, [place] [id number] [place] [address] 60177- 1168 Jul, Pain in left knee M25.562 and Gastroenteritis K52.9 [place] [address] 99913- 0234 Jul, [place] [address] 51429- 8370 Jul, Diarrhea R19.7 [facility] [place] [id number] [place] [address] 60854 -3389 Jul, Spider bite, accidental or unintentional, initial encounter T63.301A [place] [id number] [place] [address] 22929- 5534 Jul, Primary osteoarthritis of right knee M17.11 and Arthritis M19.90 [place] [id number] [place] [address] 93977- 0459 Jul, Generalized anxiety disorder F41.1 and Major depressive disorder, recurrent episode, moderate F33.1 [place] [id number] [place] [address] 64580- 4911 07 Jul, 2016 Type 2 diabetes mellitus with diabetic polyneuropathy E11.42 and Temporal headache R51 [place] [id number] [place] [address] 71255- 9518 06 Jul, 2016 Back pain M54.9 [facility] [id number] [place] [address] 52471- 6825 05 Jul, 2016 [facility] [id number] [place] [address] 04137- 2226 Jul, [facility] [id number] [place] [address] 88517- 4090 30 Jun, 2016 Nausea R11.0 [facility] [id number] [place] [address] 25019 -0032 Jun, Acute suppurative otitis media of both ears without spontaneous rupture of tympanic membranes, recurrence not specified H66.003 and COPD exacerbation J44.1 [place] [id number] [place] [address] 93057- 9201 Jun, Generalized anxiety disorder F41.1 [place] [id number] [place] [address] 69069- 3286 16 Jun, 2016 [facility] [id number] [place] [address] 57513 -2636 Jun, [facility] [id number] [place] [address] 05632 -0698 Jun, Shortness of breath R06.02 and COPD exacerbation J44.1 [place] [id number] [place] [address] 37095- 8978 10 Jun, 2016 Eczema, unspecified type L30.9 [facility] [id number] [place] [address] 33351- 6186 09 Jun, 2016 [place] [id number] [place] [address] 95274- 9670 24 May, 2016 [place] [id number] [place] [address] 55997- 9709 May, Muscle cramping R25.2 [place] [id number] [place] [address] 68653- 8264 13 May, 2016 [facility] [address] 35495- 2475 Apr, Diarrhea R19.7 [facility] [id number] [place] [address] 54931- 6652 Apr, [place] [address] 17561- 3328 Apr, Chronic pain syndrome G89.4 [place] [id number] [place] [address] 48705- 5278 Apr, Cramp of both lower extremities R25.2 and Vascular dementia without behavioral disturbance F01.50 [place] [id number] [place] [address] 10241- 1576 Apr, Type 2 diabetes mellitus with diabetic polyneuropathy E11.42 and Cigarette nicotine dependence without complication F17.210 [place] [id number] [place] [address] 62767- 4767 Mar, Generalized anxiety disorder F41.1 [place] [address] 24210- 4217 Feb, Generalized anxiety disorder F41.1 and Major depressive disorder, recurrent episode, moderate F33.1 [place] [id number] [place] [address] 08766- 2938 Feb, [facility] [id number] [place] [address] 07954 -2024 Feb, Dysuria R30.0 and Acute cystitis with hematuria N30.01 [facility] [id number] [place] [address] 31977- 4124 Jan, [facility] [id number] [place] [address] 40631- 8500 Jan, [facility] [address] 06428- 1316 Jan, [facility] [id number] [place] [address] 93646- 8716 Jan, [facility] [id number] [place] [address] 54836 -4230 10 Jan, 2016 Wasp sting, accidental or unintentional, initial encounter T63.461A [facility] [address] 60472- 0406 06 Jan, 2016 Encounter for immunization Z23 [facility] [id number] [place] [address] 46123- 7798 Jan, [facility] [address] 38292- 3178 Jan, [facility] [id number] [place] [address] 37536- 9035 28 Dec, 2015 Generalized anxiety disorder F41.1 and Major depressive disorder, recurrent episode, moderate F33.1 [facility] [id number] [place] [address] 49586- 9846 21 Dec, 2015 Routine gynecological examination Z01.419 ; Postmenopausal Z78.0 ; Screening breast examination Z12.39 ; Osteopenia M85.80 and Breast cancer screening Z12.39 [facility] [id number] [place] [address] 13863- 7676 20 Dec, 2015 [facility] [id number] [place] [address] 65221- 5766 19 Dec, 2015 [facility] [id number] [place] [address] 73419- 9413 16 Dec, 2015 [facility] [id number] [place] [address] 09665- 4427 16 Dec, 2015 [facility] [id number] [place] [address] 54442- 0649 14 Dec, 2015 [facility] [id number] [place] [address] 74169- 3897 Dec, [facility] [address] [place] [address]- 1428 Nov, [facility] [address] [place] [address] Nov, Cough R05 ; Other viral agents as the cause of diseases classified elsewhere B97.89 and Acute upper respiratory infection, unspecified J06.9 [facility] [address] [place] [address]- 2607 Nov, [facility] [address] [place] [address]- 4539 Nov, [facility] [id number] [place] [address]- 0470 Nov, [facility] [id number] [place] [address]- 4592 Nov, [facility] [id number] [place] [address]- 2547 Nov, [facility] [address] [place] [address]- 7123 Oct, [facility] [address], [place] [address]- 3841 Oct, [facility] [address] [place] [address]- 6350 Oct, [facility] [address], [place] [address]- 0115 Oct, Chronic pain syndrome G89.4 [facility] [address], [place] [address]- 2816 Sep, Generalized anxiety disorder F41.1 and Major depressive disorder, recurrent episode, moderate F33.1 [facility] [address], [place] [address]- 4569 Sep, [facility] [address], [place] [address]- 4110 Sep, [facility] [id number] [place] [address] 10734- 1133 14 Sep, 2015 Generalized anxiety disorder F41.1 [place] [id number] [place] [address] 03026- 3999 13 Sep, 2015 Cramp of both lower extremities R25.2 and Cervicalgia M54.2 [place] [address] 43302- 6340 06 Sep, 2015 Generalized anxiety disorder F41.1 [place] [id number] [place] [address] 85034- 5550 Sep, [facility] [id number] [place] [address] 62921 -4310 August, Rash R21 ; Itching L29.9 and Allergic response, subsequent encounter T78.40XD [place] [id number] [place] [address] 89828- 3155 August, Primary insomnia F51.01 [facility] [place] [id number] [place] [address] 11137 -0949 August, Rash R21 ; Itching L29.9 and Allergic response, initial encounter T78.40XA [place] [id number] [place] [address] 44975- 6429 August, [place] [id number] [place] [address] 56654- 7209 August, Cramp of both lower extremities R25.2 [place] [id number] [place] [address] 29944- 0501 August, Back pain M54.9 [place] [id number] [place] [address] 11696- 5041 August, [facility] [id number] [place] [address] 38213- 5106 August, [facility] [address] [address] August, Cramp of both lower extremities R25.2 [facility] [id number] [place] [address] 11710- 4890 August, [facility] [id number] [place] [address] 66916- 8495 August, Syncope R55 ; Paroxysmal atrial fibrillation I48.0 ; Dementia without behavioral disturbance, unspecified dementia type F03.90 and Chronic pain syndrome G89.4 [facility] [id number] [place] [address] 72267- 3606 August, Type 2 diabetes mellitus with diabetic polyneuropathy E11.42 and Syncope R55 [facility] [id number] [place] [address] 58475- 3200 Jul, [facility] [id number] [place] [address] 95112- 2157 Jul, [facility] [id number] [place] [address] 77610- 1849 Jul, [facility] [id number] [place] [address] 63404- 7662 Jul, [facility] [id number] [place] [address] 86009- 3084 Jul, [facility] [id number] [place] [address] 01963- 4711 Jul, UTI (urinary tract infection) N39.0 [facility] [id number] [place] [address] 68672- 4502 Jul, [facility] [id number] [place] [address] 85523- 0067 Jul, Major depressive disorder, recurrent episode, moderate F33.1 and Generalized anxiety disorder F41.1 [facility] [address], [place] [address]- 3741 Jul, Generalized anxiety disorder F41.1 [facility] [address], [place] [address]- 7447 14 Jul, 2015 Diarrhea R19.7 [facility] [id number] [address]- 0796 14 Jul, 2015 [facility] [address], [place] [address]- 7988 Jun, [facility] [id number] [place] [address] 78496- 5731 Jun, Eczema L30.9 [facility] [id number] [place] [address] 58265- 4358 Jun, [facility] [id number] [place] [address] 49819- 3822 Jun, COPD (chronic obstructive pulmonary disease) J44.9 [facility] [id number] [place] [address] 77606- 7109 Jun, [facility] [address], [place] [address]- 4210 Jun, Major depressive disorder, recurrent episode, moderate F33.1 and Generalized anxiety disorder F41.1 [facility] [address], [place] [address]- 8238 May, [facility] [address], [place] [address]- 0492 May, UTI (urinary tract infection) N39.0 [facility] [address], [place] [address]- 0758 17 May, 2015 [facility] [address], [place] [address]- 2792 May, [facility] [address], [place] [address]- 3503 May, [facility] [address], [place] [address]- 0293 May, [facility] [address] [address]- 8226 Apr, Major depressive disorder, recurrent episode, moderate F33.1 and Generalized anxiety disorder F41.1 [facility] [address], [place] [address]- 6019 Apr, COPD (chronic obstructive pulmonary disease) J44.9 [facility] [id number] [place] [address] 87409- 3853 Apr, [facility] [id number] [place] [address] 33720- 8958 Apr, Atrial flutter I48.92 [facility] [id number] [place] [address] 31780- 3863 Apr, [facility] [id number] [place] [address] 00163- 9250 Apr, [facility] [id number] [place] [address] 74031- 1440 Mar, [facility] [id number] [place] [address] 62124- 1321 Mar, [facility] [address], [place] [address]- 7506 Mar, [facility] [address], [place] [address]- 0654 Mar, Hyperlipidemia E78.5 ; Type 2 diabetes mellitus with diabetic polyneuropathy E11.42 ; Major depressive disorder, recurrent episode, moderate F33.1 and Chronic pain syndrome G89.4 [facility] [address], [place] [address]- 1573 Mar, [facility] [id number], [place] [address]- 1589 Mar, [facility] [id number] [place] [address] 38592- 7281 Mar, [facility] [address], [place] [address]- 5284 Mar, [facility] [id number] [place] [address] 09618- 2312 Feb, COPD (chronic obstructive pulmonary disease) J44.9 and Back pain M54.9 [facility] [id number] [place] [address] 11762- 5104 Feb, [facility] [id number] [place] [address] 51010- 8289 Feb, [facility] [id number] [place] [address] 81506- 5450 Feb, [facility] [id number] [place] [address] 61769- 0673 Feb, [facility] [id number] [place] [address] 64081- 4911 Feb, [facility] [id number] [place] [address] 62772- 2884 Feb, [facility] [id number] [place] [address] 98287- 0054 Feb, [facility] [address], [place] [address]- 0995 Feb, [facility] [id number] [place] [address] 57545- 1963 Feb, Diabetes E11.9 ; Back pain M54.9 and COPD (chronic obstructive pulmonary disease) J44.9 [facility] [address], [place] [address]- 9948 Jan, [facility] [id number] [place] [address] 25307- 1404 Jan, Major depression, recurrent F33.9 and Generalized anxiety disorder F41.1 [facility] [address], [place] [address]- 8601 Jan, Chronic pain G89.29 [facility] [address], [place] [address]- 8566 Jan, [facility] [id number] [place] [address] 70720- 9855 Jan, [facility] [id number] [place] [address] 65308- 5151 Jan, [facility] [id number] [place] [address] 55331- 9319 Jan, [facility] [id number] [place] [address] 93215- 7760 Jan, Nicotine dependence F17.200 [facility] [id number] [place] [address] 09926- 8889 Jan, Nicotine dependence F17.200 and Back pain M54.9 [facility] [id number] [place] [address] 25522- 9361 Jan, [facility] [id number] [place] [address] 06197- 7188 28 Dec, 2014 [facility] [id number] [place] [address] 21126- 1165 25 Dec, 2014 Anxiety, generalized 300.02 and Major depression, recurrent 296.30 [facility] [id number] [place] [address] 72250- 2163 24 Dec, 2014 [facility] [id number] [place] [address] 37210- 6573 21 Dec, 2014 [facility] [id number] [place] [address] 69609- 5577 17 Dec, 2014 [facility] [id number] [place] [address] 40782- 1041 15 Dec, 2014 [facility] [address], [place] [address]- 4051 14 Sep, 2014 [facility] [id number] [place] [address] 28536- 9757 11 Dec, 2014 [facility] [id number] [place] [address] 40830- 1954 Dec, [facility] [id number] [place] [address] 12013- 7137 08 Dec, 2014 Skin tear 879.8 [facility] [address] 82387- 3522 08 Dec, 2014 Routine gynecological examination V72.31 ; Breast cancer screening V76.10 and Family history of breast cancer in first degree relative V16.3 [facility] [id number] [place] [address] 17200- 6538 Dec, [facility] [id number] [place] [address] 63717- 0550 Dec, [facility] [id number] [place] [address] 51183- 1782 Nov, [facility] [id number] [place] [address] 18789- 4502 Nov, [facility] [id number] [place] [address] 60609- 8380 Nov, Poor balance 781.99 and Vascular dementia, uncomplicated 290.40 [facility] [id number] [place] [address] 35939- 3467 Nov, [facility] [id number] [place] [address] 09048- 4144 Nov, Major depression, recurrent 296.30 and Anxiety, generalized 300.02 [facility] [id number] [place] [address] 14027- 4517 Nov, [facility] [id number] [place] [address] 98326- 8874 Nov, [facility] [id number] [place] [address] 38167- 0819 Nov, [facility] [address], [place] [address]- 0292 Nov, [facility] [id number] [place] [address] 30131- 1025 Nov, Vascular dementia, uncomplicated 290.40 and Lumbago 724.2 [facility] [id number], [place] [address]- 4469 Nov, [facility] [id number] [address]- 8833 Nov, [facility] [id number] [place] [address] 74140- 1655 Nov, [facility] [id number] [place] [address] 80271- 8659 Oct, [facility] [id number] [place] [address] 18078- 9578 Oct, [facility] [address], [place] [address]- 1397 Oct, [facility] [id number] [place] [address] 58124- 8540 Oct, COPD (chronic obstructive pulmonary disease) 496 and Hyperlipidemia 272.4 [facility] [address], [place] [address]- 5363 Oct, Major depression, recurrent 296.30 and Anxiety, generalized 300.02 [facility] [address], [place] [address]- 6198 Oct, [facility] [address], [place] [address]- 9494 Oct, [facility] [address], [place] [address]- 6444 Oct, [facility] [id number] [address]- 7658 Sep, Lumbago 724.2 and Anxiety state, unspecified 300.00 [facility] [address], [place] [address]- 3819 Sep, [facility] [id number] [place] [address] 23289- 3497 Sep, [facility] [id number] [place] [address] 649713- 9241 August, [facility] [id number] [place] [address] 17832- 2239 August, Major depression, recurrent 296.30 ; Anxiety, generalized 300.02 and No condition on Heisk[place] II V71.09 [facility] [id number] [place] [address] 13688- 9620 August, [facility] [id number] [place] [address] 33663- 0988 August, [facility] [id number] [place] [address] 32884- 0142 Jul, [facility] [id number], [place] [address]- 5524 Jul, [facility] [id number] [place] [address] 04571- 0383 Jul, [facility] [address], [place] [address]- 9500 Jun, [facility] [address], [place] [address]- 7421 Jun, [facility] [address], [place] [address]- 2780 Jun, [facility] [id number] [place] [address] [id number]- 2356 Jun, [facility] [address] 3282 Jun, [facility] [id number] [place] [address] 43166- 2249 Jun, [facility] [place] [facility] [address] [id number] [place] [address]- 2219 23 Jun, 2014 [facility] [place] [facility] [address] [id number] [place] [address]- 5627 17 Jun, 2014 [facility] [place] [facility] [address] [id number] [place] [address]- 2570 13 Jun, 2014 [facility] [place] [facility] [address] [id number] [place] [address]- 2863 13 Jun, 2014 [facility] [place] [facility] [address] [id number] [place] [address]- 4152 10 Jun, 2014 [facility] [place] [facility] [address] [id number] [place] [address]- 9976 10 Jun, 2014 [facility] [place] [facility] [address] [facility] [id number] [place] [address]- 0547 Jun, [facility] [place] [facility] [address] [facility] [id number] [place] [address]- 1733 Jun, [facility] [place] [facility] [address] [id number] [place] [address]- 3713 Jun, [facility] [place] [facility] [address] [facility] [id number] [place] [address]- 4692 Jun, [facility] [place] [facility] [address] [id number] [place] [address]- 6678 May, 2014 [facility] [place] [facility] [address] [id number] [place] [address]- 4091 May, 2014 [facility] [place] [facility] [address] [id number] [place] [address]- 8365 May, 2014 [facility] [place] [facility] [address] [id number] [place] [address]- 0662 May, 2014 [facility] [place] [facility] [address] [facility] [id number] [place] [address]- 9682 May, 2014 [facility] [place] [facility] [address] [id number] [place] [address] May, 2014 [facility] [place] [facility] [address] [id number] [place] [address] May, 2014 [facility] [place] [facility] [address] [id number] [place] [address] May, 2014 [facility] [place] [facility] [address] [id number] [place] [address] May, 2014 [facility] [place] [facility] [address] [id number] [place] [address] May, 2014 [facility] [place] [facility] [address] [id number] [place] [address] May, 2014 [facility] [place] [facility] [address] [id number] [place] [address] May, 2014 [facility] [place] [facility] [address] [id number] [place] [address] May, 2014 [facility] [place] [facility] [address] [id number] [place] [address] May, [facility] [place] [facility] [address] [facility] [id number] [place] [address] Apr, [facility] [place] [facility] [address] [id number] [place] [address] Apr, [facility] [place] [facility] [address] [id number] [place] [address] Apr, [facility] [place] [facility] [address] [id number] [place] [address] Apr, [facility] [place] [facility] [address] [id number] [place] [address] Apr, [facility] [place] [facility] [address] [id number] [place] [address] Apr, [facility] [place] [facility] [address] [id number] [place] [address] Apr, [facility] [place] [facility] [address] [id number] [place] [address] Apr, [facility] [place] [facility] [address] [id number] [place] [address] Apr, [facility] [place] [facility] [address] [id number] [place] [address] Apr, [facility] [place] [facility] [address] [id number] [place] [address] Apr, [facility] [place] [facility] [address] [id number] [place] [address] Apr, [facility] [place] [facility] [address] [id number] [place] [address] Mar, [facility] [place] [facility] [address] [id number] [place] [address] 31 Mar, 2014 [facility] [place] [facility] [address] [id number] [place] [address] 0776 30 Mar, 2014 [facility] [place] [facility] [address] [id number] [place] [address] 3271 30 Mar, 2014 [facility] [place] [facility] [address] [id number] [place] [address] 6152 29 Mar, 2014 [facility] [place] [facility] [address] [id number] [place] [address]- 1677 29 Mar, 2014 [facility] [place] [facility] [address] [id number] [place] [address]- 7652 19 Mar, 2014 [facility] [place] [facility] [address] [id number] [place] [address]- 5712 19 Mar, 2014 [facility] [place] [facility] [address] [id number] [place] [address]- 6593 15 Mar, 2014 [facility] [place] [facility] [address] [id number] [place] [address] 15 Mar, 2014 [facility] [place] [facility] [address] [id number] [place] [address]- 6974 Mar, [facility] [place] [facility] [address] [id number] [place] [address]- 8964 Mar, [facility] [place] [facility] [address] [id number] [place] [address] Mar, [facility] [place] [facility] [address] [id number] [place] [address]- 0897 Mar, [facility] [place] [facility] [address] [id number] [place] [address]- 7782 Mar, [facility] [place] [facility] [address] [id number] [place] [address]- 1889 Mar, [facility] [place] [facility] [address] [id number] [place] [address]- 8434 Mar, [facility] [place] [facility] [address] [id number] [place] [address]- 4302 Mar, [facility] [place] [facility] [address] [id number] [place] [address]- 7260 Mar, [facility] [place] [facility] [address] [id number] [place] [address]- 5481 Mar, [facility] [place] [facility] [address] [id number] [place] [address]- 5166 Feb, [facility] [place] [facility] [address] [id number] [place] [address]- 4674 Feb, [facility] [place] [facility] [address] [id number] [place] [address]- 2190 Feb, [facility] [place] [facility] [address] [id number] [place] [address]- 5873 Feb, [facility] [place] [facility] [address] [id number] [place] [address]- 8634 Feb, [facility] [place] [facility] [address] [id number] [place] [address]- 0347 Feb, [facility] [place] [facility] [address] [id number] [place] [address]- 0640 Feb, [facility] [place] [facility] [address] [id number] [place] [address]- 9141 Feb, [facility] [place] [facility] [address] [id number] [place] [address]- 9344 Feb, [facility] [place] [facility] [address] [id number] [place] [address]- 6922 Feb, [facility] [place] [facility] [address] [id number] [place] [address]- 4205 Feb, [facility] [place] [facility] [address] [id number] [place] [address]- 9157 Feb, [facility] [place] [facility] [address] [id number] [place] [address]- 4527 Feb, [facility] [place] [facility] [address] [id number] [place] [address]- 4273 Feb, [facility] [place] [facility] [address] [id number] [place] [address]- 9083 Feb, [facility] [place] [facility] [address] [id number] [place] [address]- 7275 Feb, [facility] [place] [facility] [address] [id number], [place] [address]- 9[address] Feb, [facility] [place] [facility] [address] [id number], [place] [address]- 6233 Jan, [facility] [place] [facility] [address] [id number] [place] [address]- 3435 Jan, [facility] [place] [facility] [address] [id number] [place] [address]- 5902 Jan, [facility] [place] [facility] [address] [id number] [place] [address]- 5303 Jan, [facility] [place] [facility] [address] [id number] [place] [address]- 7542 Jan, [facility] [place] [facility] [address] [id number] [place] [address]- 8319 Jan, [facility] [place] [facility] [address] [id number] [place] Jan, [facility] [place] [facility] [address] [id number] [place] [address]- 0221 Jan, [facility] [place] [facility] [address] [id number] [place] [address]- 6647 Jan, [facility] [place] [facility] [address] [id number] [place] [address]- 8498 Jan, [facility] [place] [facility] [address] [id number] [place] [address]- 0291 Jan, [facility] [place] [facility] [address] [id number] [place] [address]- 7012 Dec, [facility] [place] [facility] [address] [id number] [place] [address]- 1695 Dec, [facility] [place] [facility] [address] [id number] [place] [address]- 2320 Nov, [facility] [place] [facility] [address] [id number] [place] [address]- 9898 Nov, [facility] [place] [facility] [address] [id number] [place] [address]- 9407 Nov, [facility] [place] [facility] [address] [id number] [place] [address]- 7356 Nov, [facility] [place] [facility] [address] [id number] [place] [address]- 3373 Nov, [facility] [place] [facility] [address] [id number] [place] [address]- 8958 Nov, [facility] [place] [facility] [address] [id number] [place] [address]- 7084 Nov, [facility] [place] [facility] [address] [id number] [place] [address]- 8039 Oct, [facility] [place] [facility] [address] [id number] [place] [address]- 8000 Oct, [facility] [place] [facility] [address] [id number] [place] [address]- 4554 Oct, [facility] [place] [facility] [address] [id number] [place] [address]- 4650 Oct, [facility] [place] [facility] [address] [id number] [place] [address]- 3318 Sep, [facility] [place] [facility] [address] [id number] [place] [address]- 0639 Sep, [facility] [place] [facility] [address] [id number] [place] [address]- 7897 Sep, [facility] [place] [facility] [address] [id number] [place] [address]- 8918 Sep, [facility] [place] [facility] [address] [id number] [place] [address]- 1753 Sep, [facility] [place] [facility] [address] [id number] [place] [address]- 8728 Sep, [facility] [place] [facility] [address] [id number] [place] [address]- 3464 Sep, [facility] [place] [facility] [address] [id number], [place] [address]- 4964 Sep, [facility] [place] [facility] [address] [id number] [place] [address]- 3465 Sep, [facility] [place] [facility] [address] [id number] [place] [address]- 4700 Sep, [facility] [place] [facility] [address] [id number] [place] [address]- 3332 05 Sep, 2013 [facility] [place] [facility] [address] [id number], [place] [address]- 6193 Sep, [facility] [address] [id number] [place] [address]- 0450 Sep, [facility] [place] [facility] [address] [id number] [place] [address]- 7324 Sep, [facility] [address] [id number] [place] [address]- 5726 August, [facility] [place] [facility] [address] [id number] [place] [address]- 8888 August, [facility] [place] [facility] [address] [id number] [place] [address]- 1630 August, [facility] [place] [facility] [address] [id number] [place] [address]- 2458 August, [facility] [address] [id number] [place] [address]- 3489 August, [facility] [address] [id number] [place] [address]- 7735 August, [facility] [address] [id number] [place] [address]- 4858 August, [facility] [place] [facility] [address] [id number] [place] [address]- 4834 August, [facility] [place] [facility] [address] [id number] [place] [address]- 7754 August, [facility] [place] [facility] [address] [id number] [place] [address]- 7804 August, [facility] [place] [facility] [address] [id number] [place] [address]- 0228 August, [facility] [place] [facility] [address] [id number] [place] [address]- 0726 August, [facility] [place] [facility] [address] [id number] [place] [address]- 0626 August, [facility] [place] [facility] [address] [id number] [place] [address]- 4286 August, [facility] [place] [facility] [address] [id number] [place] [address]- 3349 August, [facility] [place] [facility] [address] [id number] [place] [address]- 7176 August, [facility] [place] [facility] [address] [id number] [place] [address]- 9705 August, [facility] [place] [facility] [address] [id number] [place] [address]- 5640 August, [facility] [place] [facility] [address] [id number] [place] [address]- 9887 August, [facility] [place] [facility] [address] [id number] [place] [address]- 6873 Jul, [facility] [place] [facility] [address] [id number] [place] [address]- 5343 Jul, [facility] [place] [facility] [address] [id number] [place] [address]- 9899 Jul, [facility] [place] [facility] [address] [id number] [place] [address]- 7663 Jul, [facility] [place] [facility] [address] [id number] [place] [address]- 8522 Jun, [facility] [place] [facility] [address] [id number] [place] [address]- 3312 Jun, [facility] [place] [facility] [address] [id number] [place] [address]- 6763 Jun, [facility] [place] [facility] [address] [id number] [place] [address]- 2083 Jun, [facility] [place] [facility] [address] [id number] [place] [address]- 5686 Jun, [facility] [place] [facility] [address] [id number] [place] [address]- 0431 17 Jun, 2013 [facility] [place] [facility] [address] [id number] [place] [address]- 8742 14 Jun, 2013 [facility] [place] [facility] [address] [id number] [place] [address]- 5775 14 Jun, 2013 [facility] [place] [facility] [address] [facility] [id number] [place] [address]- 9711 Jun, [facility] [place] [facility] [address] [id number] [place] [address]- 7339 Jun, [facility] [place] [facility] [address] [id number] [place] [address]- 6884 May, [facility] [place] [facility] [address] [id number] [place] [address]- 8450 May, [facility] [place] [facility] [address] [id number] [place] [address]- 2860 May, [facility] [place] [facility] [address] [id number] [place] [address]- 3859 May, [facility] [place] [facility] [address] [id number] [place] [address]- 4007 May, [facility] [place] [facility] [address] [facility] [id number] [place] [address]- 4019 May, [facility] [place] [facility] [address] [id number] [place] [address]- 0446 May, [facility] [place] [facility] [address] [facility] [id number] [place] [address]- 2600 May, [facility] [place] [facility] [address] [id number] [place] [address]- 9070 May, [facility] [place] [facility] [address] [facility] [id number] [place] [address]- 4152 18 May, 2013 [facility] [place] [facility] [address] [facility] [id number] [place] [address]- 3064 May, [facility] [place] [facility] [address] [id number] [place] [address]- 4924 17 May, 2013 [facility] [place] [facility] [address] [id number] [place] [address]- 3546 May, [facility] [place] [facility] [address] [id number] [place] [address]- 4936 May, [facility] [place] [facility] [address] [id number] [place] [address]- 2806 May, [facility] [place] [facility] [address] [id number] [place] [address]- 4336 May, [facility] [place] [facility] [address] [id number] [place] [address]- 2236 May, [facility] [place] [facility] [address] [id number] [place] [address]- 0352 Apr, [facility] [place] [facility] [address] [id number] [place] [address]- 6206 Apr, [facility] [place] [facility] [address] [id number] [place] [address]- 9613 Apr, [facility] [place] [facility] [address] [id number] [place] [address]- 0717 Apr, [facility] [place] [facility] [address] [id number] [place] [address]- 1935 Apr, [facility] [place] [facility] [address] [id number] [place] [address]- 0463 Apr, [facility] [place] [facility] [address] [id number] [place] [address]- 9116 Apr, [facility] [place] [facility] [address] [id number] [place] [address]- 2276 Mar, [facility] [place] [facility] [address] [id number] [place] [address]- 5686 Mar, [facility] [place] [facility] [address] [id number] [place] [address]- 1879 Mar, [facility] [address] [id number] [place] [address]695 Mar, [facility] [address] [id number] [place] [address]- 2987 Mar, [facility] [address] [id number] [place] [address]- 6536 Mar, [facility] [address] [id number] [place] [address]- 9609 Mar, [facility] [address] [id number] [place] [address]605 Mar, [facility] [address] [id number] [place] [address]- 4682 Mar, [facility] [address] [id number] [place] [address]- 1519 Mar, [facility] [address] [id number] [place] [address]- 9718 Mar, [facility] [address] [id number] [place] [address]- 1577 Feb, [facility] [address] [id number] [place] [address]- 6171 Feb, [facility] [address] [id number] [place] [address]- 9397 Feb, [facility] [place] [facility] [address] [id number], [place] [address]- 2809 Feb, [facility] [place] [facility] [address] [id number], [place] [address]- 7318 Feb, [facility] [place] [facility] [address] [id number], [place] [address]- 5390 Feb, [facility] [address] [id number], [place] [address]- 3708 15 Feb, 2013 [facility] [place] [facility] [address] [id number] [place] [address]- 2400 14 Feb, 2013 [facility] [place] [facility] [address] [id number] [place] [address]- 3894 14 Feb, 2013 [facility] [place] [facility] [address] [id number] [place] [address]- 5673 13 Feb, 2013 [facility] [place] [facility] [address] [id number] [place] [address]- 5309 13 Feb, 2013 [facility] [place] [facility] [address] [id number] [place] [address]- 5182 12 Feb, 2013 [facility] [place] [facility] [address] [id number] [place] [address]- 3694 Feb, [facility] [place] [facility] [address] [id number] [place] [address]- 9985 Feb, [facility] [place] [facility] [address] [id number] [place] [address]- 0577 Feb, [facility] [place] [facility] [address] [id number] [place] [address]- 5289 Feb, [facility] [place] [facility] [address] [id number] [place] [address]- 1372 Jan, [facility] [place] [facility] [address] [id number] [place] [address]- 4054 Jan, [facility] [place] [facility] [address] [id number] [place] [address]- 0306 Jan, [facility] [place] [facility] [address] [id number] [place] [address]- 8327 Jan, [facility] [place] [facility] [address] [id number] [place] [address]- 3731 Jan, [facility] [place] [facility] [address] [id number] [place] [address]- 2004 Jan, [facility] [place] [facility] [address] [id number] [place] [address]- 5650 Jan, [facility] [place] [facility] [address] [id number] [place] [address]- 9909 Jan, [facility] [place] [facility] [address] [id number] [place] [address]- 7612 10 Jan, 2013 [facility] [place] [facility] [address] [id number] [place] [address]- 2501 27 Dec, 2012 [facility] [place] [facility] [address] [id number] [place] [address]- 6917 20 Dec, 2012 [facility] [place] [facility] [address] [id number] [place] [address]- 6503 19 Dec, 2012 [facility] [place] [facility] [address] [id number] [place] [address]- 3894 10 Dec, 2012 [facility] [place] [facility] [address] [id number] [place] [address]- 7519 04 Dec, 2012 [facility] [place] [facility] [address] [id number], [place] [address]- 6425 Dec, [facility] [place] [facility] [address] [id number] [place] [address]- 0832 Nov, [facility] [place] [facility] [address] [id number] [place] [address]- 2739 Nov, [facility] [place] [facility] [address] [id number], [place] [address]- 6820 Nov, [facility] [place] [facility] [address] [id number], [place] [address]- 9196 Nov, [facility] [place] [facility] [address] [id number] [place] [address]- 0447 Nov, [facility] [place] [facility] [address] [id number], [place] [address]- 9064 Nov, [facility] [place] [facility] [address] [id number] [place] [address]- 2054 Nov, [facility] [place] [facility] [address] [id number] [place] [address]- 0975 15 Nov, 2012 [facility] [place] [facility] [address] [id number] [place] [address]- 3624 14 Nov, 2012 [facility] [place] [facility] [address] [id number] [place] [address]- 1239 Nov, [facility] [place] [facility] [address] [id number] [place] [address]- 7086 Oct, [facility] [place] [facility] [address] [id number] [place] [address]- 1495 Oct, [facility] [place] [facility] [address] [id number] [place] [address]- 7873 Oct, [facility] [place] [facility] [address] [id number] [place] [address]- 6394 Oct, [facility] [place] [facility] [address] [id number] [place] [address]- 4177 Oct, [facility] [place] [facility] [address] [id number] [place] [address]- 8128 Oct, [facility] [place] [facility] [address] [id number] [place] [address]- 6267 Oct, [facility] [place] [facility] [address] [id number] [place] [address]- 4270 Oct, [facility] [place] [facility] [address] [id number] [place] [address]- 5429 Sep, [facility] [place] [facility] [address] [id number] [place] [address]- 8923 Sep, [facility] [place] [facility] [address] [id number] [place] [address]- 4546 Sep, [facility] [place] [facility] [address] [id number] [place] [address]- 9601 Sep, [facility] [place] [facility] [address] [id number] [place] [address] Sep, [facility] [place] [facility] [address] [id number] [place] [address] Sep, [facility] [address] [id number] [place] [address] Sep, [facility] [address] [id number] [place] [address] Sep, [facility] [address] [id number] [place] [address] August, [facility] [address] [id number] [place] [address] August, [facility] [address] [id number] [place] [address] August, [facility] [address] [id number] [place] [address] August, [facility] [address] [id number] [place] [address] August, [facility] [address] [id number] [place] [address] Jul, [facility] [address] [id number] [place] [address] Jul, [facility] [address] [id number] [place] [address] Jul, [facility] [address] [id number] [place] [address] Jul, [facility] [address] [id number] [place] [address] Jul, [facility] [address] [id number] [place] [address] Jun, [facility] [address] [id number] [place] [address] Jun, [facility] [address] [id number], [place] [address] 15 Jun, 2012 [facility] [address] [id number] [place] [address]- [address] 14 Jun, 2012 [facility] [address] [id number] [place] [address]846 Jun, [facility] [address] [facility] [id number] [place] [address] Jun, [facility] [place] [facility] [address] [id number] [place] [address]- [address] Jun, [facility] [address] [id number] [place] [address]- 4490 Jun, [facility] [address] [id number] [place] [address] 69[address] Jun, [facility] [address] [facility] [id number] [place] [address]160 May, [facility] [place] [facility] [address] [id number] [place] [address] May, [facility] [address] [id number] [place] [address]- [address]247 May, [facility] [address] [facility] [id number] [place] [address]- [address] May, [facility] [address] [facility] [id number] [place] [address]- [address] Apr, [facility] [place] [facility] [address] [id number], [place] [address] Apr, [facility] [place] [facility] [address] [id number], [place] [address] Apr, [facility] [place] [facility] [address] [id number] [place] [address] 46[address] Apr, [facility] [place] [facility] [address] [facility] [id number], [place] [address] Apr, [facility] [place] [facility] [address] [id number] [place] [address]- [address]181 Apr, [facility] [address] [id number] [place] [address] Apr, [facility] [address] [id number] [place] [address] Mar, [facility] [address] [place] [id number] Mar, [facility] [address] [id number] [place] [address] Mar, [facility] [address] [id number] [place] [address]- 1614 Mar, [facility] [address] [id number] [place] [address] 75[address] Mar, [facility] [address] [id number] [place] [address]- 6416 Mar, [facility] [address] [id number] [place] [address]- 5880 Mar, [facility] [address] [id number] [place] [address]- [address]696 Mar, [facility] [address] [id number] [place] [address]- 6292 Mar, [facility] [address] [id number] [place] [address]- 6916 Mar, [facility] [address] [id number] [place] [address]- [address]290 Mar, [facility] [address] [id number] [place] [address]- 3435 Mar, [facility] [address] [id number] [place] [address]- 9228 Mar, [facility] [address] [id number] [place] [address]- 0790 Mar, [facility] [place] [facility] [address] [id number] [place] [address]- 45[address] Mar, [facility] [place] [facility] [address] [id number] [place] [address]- 407[address] Mar, [facility] [place] [facility] [address] [id number] [place] [address]- 0774 Mar, [facility] [place] [facility] [address] [id number] [place] [address]- 3939 Feb, [facility] [place] [facility] [address] [id number] [place] [address]- 0955 Feb, [facility] [place] [facility] [address] [id number] [place] [address]- 4397 Feb, [facility] [place] [facility] [address] [id number] [place] [address]- 3489 Feb, [facility] [place] [facility] [address] [id number] [place] [address]- 9978 Feb, [facility] [place] [facility] [address] [id number] [place] [address]- 8063 Feb, [facility] [place] [facility] [address] [id number] [place] [address]- 5325 Feb, [facility] [place] [facility] [address] [id number] [place] [address]- 8043 Feb, [facility] [place] [facility] [address] [id number], [place] [address] Feb, [facility] [place] [facility] [address] [id number] [place] [address]- 6206 Feb, [facility] [place] [facility] [address] [id number] [place] [address]- 2893 Feb, [facility] [place] [facility] [address] [id number], [place] [address] Feb, [facility] [place] [facility] [address] [id number], [place] [address] 71[address] Feb, [facility] [place] [facility] [address] [id number] [place] [address]- 9110 Feb, [facility] [place] [facility] [address] [id number] [place] [address]- 6056 Feb, [facility] [place] [facility] [address] [id number] [place] [address]- 7251 Feb, [facility] [place] [facility] [address] [id number] [place] [address]- 3639 Jan, [facility] [place] [facility] [address] [id number] [place] [address]- 4020 Jan, [facility] [place] [facility] [address] [id number] [place] [address] Jan, [facility] [place] [facility] [address] [id number] [place] [address] Jan, [facility] [place] [facility] [address] [id number] [place] [address] Jan, [facility] [place] [facility] [address] [id number] [place] [address] Jan, [facility] [place] [facility] [address] [facility] [id number], [place] [address] Jan, [facility] [place] [facility] [address] [id number], [place] [address] Jan, [facility] [place] [facility] [address] [facility] [id number], [place] [address] Jan, [facility] [place] [facility] [address] [id number], [place] [address] Jan, [facility] [place] [facility] [address] [facility] [id number], [place] [address] Jan, [facility] [place] [facility] [address] [facility] [id number] [place] [address] 1301 Jan, [facility] [place] [facility] [address] [id number] [place] [address] 7227 11 Jan, 2012 [facility] [place] [facility] [address] [id number] [place] [address]- 4037 11 Jan, 2012 [facility] [place] [facility] [address] [id number] [place] [address]- 8146 08 Jan, 2012 [facility] [place] [facility] [address] [id number] [place] [address]- 2954 05 Jan, 2012 [facility] [place] [facility] [address] [id number] [place] [address]- 3247 04 Jan, 2012 [facility] [place] [facility] [address] [id number] [place] [address] 8947 21 Dec, 2011 [facility] [place] [facility] [address] [id number] [place] [address]- 8805 20 Dec, 2011 [facility] [place] [facility] [address] [id number] [place] [address]- 4810 18 Dec, 2011 [facility] [place] [facility] [address] [id number] [place] [address] 2540 18 Dec, 2011 [facility] [place] [facility] [address] [id number] [place] [address]- 1813 10 Dec, 2011 [facility] [place] [facility] [address] [id number] [place] [address]- 5556 10 Dec, 2011 [facility] [place] [facility] [address] [id number] [place] [address] 2546 10 Dec, 2011 [facility] [place] [facility] [address] [id number] [place] [address] 2541 07 Dec, 2011 [facility] [place] [facility] [address] [id number] [place] [address]- 7826 30 Nov, 2011 [facility] [place] [facility] [address] [id number] [place] [address]- 2546 25 Nov, 2011 [facility] [place] [facility] [address] [id number] [place] [address]- 9006 Nov, [facility] [place] [facility] [address] [id number] [place] [address] 1927 Nov, [facility] [place] [facility] [address] [id number] [place] [address]- 2800 Nov, [facility] [place] [facility] [address] [id number] [place] [address] 2902 Nov, [facility] [place] [facility] [address] [id number] [place] [address]- 3284 Oct, [facility] [place] [facility] [address] [id number] [place] [address] 9897 Oct, [facility] [place] [facility] [address] [id number] [place] [address] 7882 Oct, [facility] [place] [facility] [address] [id number] [place] [address]- 0317 Oct, [facility] [place] [facility] [address] [id number] [place] [address]- 2755 Oct, [facility] [place] [facility] [address] [id number] [place] [address] 3180 Oct, [facility] [place] [facility] [address] [id number] [place] [address] 8072 Oct, [facility] [place] [facility] [address] [id number] [place] [address] 9898 Sep, [facility] [place] [facility] [address] [id number] [place] [address]- 6208 Sep, [facility] [place] [facility] [address] [id number] [place] [address]- 0586 Sep, [facility] [place] [facility] [address] [id number] [place] [address]- 7171 Sep, [facility] [place] [facility] [address] [id number] [place] [address] 2904 Sep, [facility] [place] [facility] [address] [id number] [place] [address]- 2446 15 Sep, 2011 [facility] [address] [id number] [place] [address]- 3946 14 Sep, 2011 [facility] [place] [facility] [address] [id number] [place] [address]- 2619 11 Sep, 2011 [facility] [place] [facility] [address] [id number] [place] [address]- 6260 05 Sep, 2011 [facility] [place] [facility] [address] [id number] [place] [address]- 9401 04 Sep, 2011 [facility] [place] [facility] [address] [id number] [place] [address] 4386 August, [facility] [place] [facility] [address] [id number] [place] [address] 2250 August, [facility] [address] [id number] [place] [address] 2320 August, [facility] [place] [facility] [address] [id number] [place] [address]- 4522 August, [facility] [place] [facility] [address] [id number] [place] [address]- 7623 August, [facility] [place] [facility] [address] [id number] [place] [address]- 5980 Jul, [facility] [place] [facility] [address] [id number] [place] [address]- 1204 26 Jul, 2011 [facility] [place] [facility] [address] [id number] [place] [address]- 5537 25 Jul, 2011 [facility] [place] [facility] [address] [id number] [place] [address]- 6713 17 Jul, 2011 [facility] [place] [facility] [address] [id number] [place] [address]- 1544 11 Jul, 2011 [facility] [place] [facility] [address] [id number] [place] [address]- 0312 09 Jul, 2011 [facility] [place] [facility] [address] [id number] [place] [address] 3378 Jul, [facility] [place] [facility] [address] [id number] [place] [address] 4476 Jun, [facility] [place] [facility] [address] [id number] [place] [address] 7576 Jun, [facility] [place] [facility] [address] [id number] [place] [address]- 4248 Jun, [facility] [place] [facility] [address] [id number] [place] [address]- 5046 Jun, [facility] [place] [facility] [address] [id number] [place] [address] 5000 Jun, [facility] [place] [facility] [address] [facility] [id number] [place] [address]- 9168 May, [facility] [place] [facility] [address] [id number] [place] [address]- 5010 May, [facility] [place] [facility] [address] [id number] [place] [address]- 1686 May, [facility] [place] [facility] [id number] [place] [address]- [address] May, [facility] [place] [facility] [address] [id number] [place] [address]805 May, [facility] [place] [facility] [address] [id number] [place] [address]- 4581 May, [facility] [place] [facility] [address] [id number] [place] [address]- 3568 Apr, [facility] [place] [facility] [address] [id number] [place] [address]- 2416 Mar, [facility] [place] [facility] [address] [id number] [place] [address] 2546 Feb, [facility] [place] [facility] [address] [id number], [place] [address]- 8891 07 Feb, 2011 [facility] [place] [facility] [address] [id number] [place] [address]- 4308 Feb, [facility] [place] [facility] [address] [id number] [place] [address]70 Feb, [facility] [place] [facility] [address] [facility] [id number] [place] [address]- 2218 31 Jan, 2011 [facility] [place] [facility] [address] [id number] [place] [address]- 2206 27 Jan, 2011 [facility] [place] [facility] [address] [id number] [place] [id number], [place] [address]- 4791 Jan, [facility] [place] [facility] [address] [id number] [place] [address]- 6104 24 Jan, 2011 [facility] [address] [facility] [id number] [place] [address]- 1119 14 Jan, 2011 [facility] [place] [facility] [address] [id number] [place] [address]- 5788 Dec, [facility] [place] [facility] [address] [facility] [id number] [place] [address]- 6378 Oct, [facility] [place] [facility] [address] [facility] [id number] [place] [address]- 2080 August, [facility] [place] [facility] [address] [facility] [id number], [place] [address]- 7368 29 Mar, 2010 [facility] [place] [facility] [address] [id number], [place] [address]- 5609 27 Mar, 2010 [facility] [place] [facility] [address] [id number] [place] [address]- 9259 16 Mar, 2010 [facility] [place] [facility] [address] [facility] [id number] [place] 9762 15 Mar, 2010 [facility] [place] [facility] [address] [facility] [id number], [place] [address]- 0173 15 Mar, 2010 [facility] [place] [facility] [address] [id number] [place] [address]- 5259 08 Mar, 2010 [facility] [place] [facility] [address] [id number] [place] [address]- 4336 Mar, [facility] [place] [facility] [address] [id number] [place] [address]- 2370 Feb, [facility] [place] [facility] [address] [id number] [place] [address]- 6578 24 Feb, 2010 [facility] [place] [facility] [address] [id number] [place] [address]- 8299 15 Feb, 2010 [facility] [place] [facility] [address] [id number] [place] [address]- 5537 Jan, [facility] [place] [facility] [address] [id number] [place] [address]- 9020 Jan, [facility] [place] [facility] [address] [id number] [place] [address]- 9224 18 Jan, 2010 [facility] [place] [facility] [address] [id number] [place] [address]- 4632 Nov, [facility] [place] [facility] [address] [id number] [place] [address]- 7705 Sep, [facility] [place] [facility] [address] [id number] [place] [address]- 6648 August, [facility] [place] [facility] [address] [id number] [place] [address]- 1923 30 Mar, 2009 [facility] [place] [facility] [address] [id number] [place] [address]- 1733 07 Mar, 2009 [facility] [place] [facility] [address] [id number] [place] [address]- 6356 17 Feb, 2009 [facility] [place] [facility] [address] [id number] [place] [address]- 5785 10 Feb, 2009 [facility] [place] [facility] [address] [id number] [place] [address]- 5660 Feb, [facility] [address] [id number], [place] [address]- 3091 Feb, [facility] [id number], [place] [address]- 7850 Feb, [facility] [id number], [place] [address]- 9265 Jan, [facility] [id number] [place] [address]- 2997 Jan, [facility] [id number] [place] [address]- 9577 Jan, [facility] [id number] [place] [address] 288[address]- 1730 Jan, [facility] [id number], [place] [address]- 7286 Nov, [facility] [id number], [place] [address]- 9319 Sep, [facility] [id number], [place] [address]- 3548 August, [facility] [id number], [place] [address]- 7659 Jul, [facility] [id number], [place] [address]- 9517 May, IMMUNIZATIONS No Known Immunizations SOCIAL HISTORY [...] Knee Surgery 07/16/17 Hospitalization History [facility]- left hand/wrist swelling 10/09/2017
--- OUTSIDE RECORDS SUMMARY | 2018-02-10 11:04 | XMS REPORT ---
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 Active 44694204 Problem Colon polyp K63.5 Active 68555713 Problem Screening breast examination Z12.39 Active 447379459 Problem Bilateral low back pain without sciatica M54.5 Active 312876695 Problem Postmenopausal Z78.0 Active 31752989 Problem Essential tremor G25.0 Active 30305683 Problem Osteopenia M85.80 Active 875016710 Problem Hyperlipidemia E78.5 Active 95811029 Problem Cigarette nicotine dependence without complication F17.210 Active 66862069 Problem Vascular dementia without behavioral disturbance F01.50 Active [id number] Problem Arthritis M19.90 Active 2200267 Problem Chronic atrial fibrillation I48.2 Active 513263704 Problem Dementia without behavioral disturbance, unspecified dementia type F03.90 Active 91219101 Problem Other chronic pancreatitis K86.1 Active 413951367 Problem Xeroderma Q80.9 Active 02332025 Problem Chronic obstructive pulmonary disease with acute lower respiratory infection J44.0 Active 381255477 Problem Type 2 diabetes mellitus with diabetic neuropathy, without long-term current use of insulin E11.40 Active 66104163 Problem Atherosclerosis of [place] artery of both lower extremities with intermittent claudication I70.213 Active 935619179890788 Problem Hammertoe of right foot M20.41 Active 572450548 Problem Hammertoe of left foot M20.42 Active 896313084 Problem Migraine without aura and with status migrainosus, not intractable G43.001 Active 229918450 Problem Migraine without aura and without status migrainosus, not intractable G43.009 Active 258739236 Problem Major depressive disorder, recurrent episode, moderate F33.1 Active 072523141 Problem Unspecified psychosis F29 Active 82878625 Problem Cervicalgia M54.2 Active 4302557226569 Problem Diabetic polyneuropathy associated with type 2 diabetes mellitus E11.42 Active 14659719 Problem COPD (chronic obstructive pulmonary disease) J44.9 Active 74712617 Problem 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.118 Active 2112630470822 Problem Gastroparesis K31.84 Active 351327165 Problem Stress incontinence of urine N39.3 Active 28531421 Problem Osteoporosis M81.0 Active 30004046 Problem Controlled type 2 diabetes mellitus without complication, without long -term current use of insulin E11.9 Active 809579912 Problem Barretts esophagus K22.70 Active 249379435 Problem Chronic fatigue R53.82 Active 12007881 Problem History of common bile duct surgery Z98.89 Active 979276065 Problem Bipolar affective disorder, currently depressed, moderate F31.32 Active 951054024 Problem Generalized anxiety disorder F41.1 Active 681089529 Problem Gastroesophageal reflux disease, esophagitis presence not specified K21.9 Active 572556449 Problem Coronary artery disease involving [place] coronary artery of [place] heart with other form of angina pectoris I25.118 Active 9144905377349 Problem Postconcussion syndrome F07.81 Active 19694118 Problem Chronic pain syndrome G89.4 Active 132265129 Problem Type 2 diabetes mellitus with diabetic peripheral angiopathy without gangrene E11.51 Active 642006128 Problem Paroxysmal atrial fibrillation I48.0 Active 227015284 Problem Unspecified atherosclerosis of [place] arteries of extremities, unspecified extremity I70.209 Active 429336258157040 Problem Acute exacerbation of chronic obstructive pulmonary disease (COPD) J44.1 Active 016938738 Problem Crohn''s disease without complication, unspecified gastrointestinal tract location K50.90 Active 56280027 ALLERGIES No Information ENCOUNTERS Encounter Location Date Diagnosis [facility] [address] [facility] [id number], [place] [address] Feb, [facility] [address] [facility] [id number], [place] [address] Dec, [facility] [address] [facility] [id number], [place] [address] 9[address] Dec, High risk medication use Z79.899 [facility] [address] [address] 25 Dec, 2017 [facility] [address] [id number] [place] [address] 93521- 0109 24 Dec, 2017 [facility] [address], [place] [address] 0836 19 Dec, 2017 [facility] [id number] [place] [address] 38398- 1499 19 Dec, 2017 [facility] [id number] [place] [address] 72685- 1088 18 Dec, 2017 [facility] [id number] [place] [address] 00794- 8077 14 Dec, 2017 [facility] [id number] [place] [address] 63863- 6648 14 Dec, 2017 [facility] [id number] [place] [address] 88395- 7251 13 Dec, 2017 [facility] [address], [place] [address]99 Dec, Type 2 diabetes mellitus with diabetic peripheral angiopathy without gangrene E11.51 ; Contusion of face, initial encounter S00.83XA and Bronchitis J40 [facility] [address] [address] 0089 Dec, [facility] [id number] [place] [address] 64009- 1013 06 Dec, 2017 [facility] [address], [place] [address] 0[address] Nov, [facility] [address], [place] [address] 5537 Nov, Onychomycosis B35.1 ; Hammertoe of left foot M20.42 ; Hammertoe of right foot M20.41 and Type 2 diabetes mellitus with diabetic neuropathy, without long-term current use of insulin E11.40 [place] [id number] [place] [address] 80012- 2780 Nov, [place] [address] [place] [id number] [place] [address] 05124- 6856 Nov, Bronchitis J40 [facility] [address] [place] [id number] [place] [address] 66816- 2145 Oct, [place] [address] [place] [id number] [place] [address] 38429- 8477 Oct, Bipolar affective disorder, currently depressed, moderate F31.32 ; Vascular dementia without behavioral disturbance F01.50 and Generalized anxiety disorder F41.1 [place] [address] [place] [id number] [place] [address] 57699- 2621 Oct, [place] [address] [place] [id number] [place] [address] 55399- 0435 Oct, [place] [address] [place] [id number] [place] [address] 60099- 2004 Oct, Edema of both legs R60.0 [place] [address] [place] [id number] [place] [address] 34353- 0613 Oct, [place] [address] [place] [id number] [place] [address] 82214- 7736 Sep, [place] [address] [place] [id number] [place] [address] 68162- 2387 Sep, [place] [address] [place] [id number] [place] [address] 52095- 9549 Sep, [place] [id number] [place] [address] 90706- 9304 18 Sep, 2017 Encounter for well woman exam with routine gynecological exam Z01.419 ; Screening for STDs (sexually transmitted diseases) Z11.3 ; Screening breast examination Z12.31 and Overweight (BMI 25.0-29.9) E66.3 [place] [address] [id number] [place] [address] 76516- 4093 Sep, [facility] [address] [address] Sep, [facility] [id number] [place] [address] 571055- 4537 Sep, [facility] [id number] [place] [address] 388754- 0790 August, [facility] [id number] [place] [address] 42292- 0330 August, [facility] [id number] [place] [address] 23219- 1429 August, Type 2 diabetes mellitus with diabetic neuropathy, without long-term current use of insulin E11.40 and Sprain of right ankle, unspecified ligament, initial encounter S93.401A [facility] [id number] [place] [address] 08118- 4254 August, [facility] [id number] [address] 7078 August, [facility] [id number] [place] [address] 51903- 7011 August, [facility] [address], [place] [address] 8424 August, Gastroesophageal reflux disease, esophagitis presence not specified K21.9 [facility] [address], [place] [address] 8672 August, [facility] [address] 3422 August, [facility] [address] [address] August, [facility] [address] [address] [address] August, Type 2 diabetes mellitus with diabetic neuropathy, without long-term current use of insulin E11.40 and Elevated liver enzymes R74.8 [facility] [id number] [place] [address] 93225- 4579 Jul, [facility] [address] 24745- 2236 Jul, Cough R05 [facility] [id number] [place] [address] 92392- 1971 Jul, [facility] [address] 04180- 1009 Jul, [facility] [id number] [place] [address] 36666- 3047 Jul, Bipolar affective disorder, currently depressed, moderate F31.32 ; Vascular dementia without behavioral disturbance F01.50 and Generalized anxiety disorder F41.1 [facility] [id number] [place] [address] 19840- 2043 Jul, [facility] [id number] [place] [address] 47283- 4320 Jul, Type 2 diabetes mellitus with diabetic neuropathy, without long-term current use of insulin E11.40 and Elevated liver enzymes R74.8 [facility] [id number] [place] [address] 13377- 1362 Jul, [facility] [id number] [place] [address] 36294- 5720 Jul, [facility] [id number] [place] [address] 25124- 4313 17 Jul, 2017 [facility] [id number] [place] [address] 54031- 9494 Jul, Post-menopausal Z78.0 [facility] [id number] [place] [address] 47461- 1923 Jul, Stress incontinence of urine N39.3 [facility] [id number] [place] [address] 52179- 7288 Jul, [facility] [id number] [place] [address] 58559- 5805 Jul, [facility] [id number] [place] [address] 93243- 5295 Jul, Stress incontinence of urine N39.3 and Cough R05 [facility] [id number] [place] [address] 19180- 7052 Jul, [facility] [id number] [place] [address] 15720- 5462 Jul, [facility] [id number] [place] [address] 58112- 4255 Jul, [facility] [id number] [place] [address] 29999- 2181 Jul, Gastroesophageal reflux disease, esophagitis presence not specified K21.9 [facility] [id number] [place] [address] 15508- 7374 Jun, Diabetic polyneuropathy associated with type 2 diabetes mellitus E11.42 [facility] [id number] [place] [address] 60747- 9775 Jun, Diabetic polyneuropathy associated with type 2 diabetes mellitus E11.42 ; Coronary artery disease involving [place] coronary artery of [place] heart with other form of angina pectoris I25.118 and Paroxysmal atrial fibrillation I48.0 [facility] [id number] [place] [address] 64424- 1148 Jun, [facility] [id number] [place] [address] 11979- 0678 Jun, [facility] [id number] [place] [address] 08919- 2496 Jun, Gastroenteritis K52.9 [facility] [id number] [place] [address] 70133- 0734 Jun, Gastroenteritis K52.9 [facility] [id number] [place] [address] 84934- 5849 Jun, [place] [id number] [place] [address] 89312- 3351 Jun, [place] [address] [place] [id number] [place] [address] 25499- 9904 Jun, Sprain of right ankle, unspecified ligament, initial encounter S93.401A ; Type 2 diabetes mellitus with diabetic neuropathy, without long-term current use of insulin E11.40 ; Atherosclerosis of [place] artery of both lower extremities with intermittent claudication I70.213 ; 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.118 ; Chronic atrial fibrillation I48.2 and Crohn''s disease without complication, unspecified gastrointestinal tract location K50.90 [facility] [id number] [place] [address] 35236 -6509 17 Jun, 2017 Cough R05 and Chronic obstructive pulmonary disease with acute lower respiratory infection J44.0 [place] [address] [id number] [place] [address] 28104- 2629 16 Jun, 2017 [place] [address] [place] [id number] [place] [address] 14643- 4698 15 Jun, 2017 Coughing R05 ; Unspecified atherosclerosis of [place] arteries of extremities, unspecified extremity I70.209 ; Type 2 diabetes mellitus with diabetic peripheral angiopathy without gangrene E11.51 ; Crohn''s disease without complication, unspecified gastrointestinal tract location K50.90 ; Other chronic pancreatitis K86.1 and Chronic atrial fibrillation I48.2 [facility] [id number] [place] [address] 16279 -1785 Jun, [place] [address] [place] [id number] [place] [address] 61888- 7225 Jun, Bipolar affective disorder, currently depressed, moderate F31.32 ; Vascular dementia without behavioral disturbance F01.50 and Generalized anxiety disorder F41.1 [place] [id number] [place] [address] 64013- 0979 May, Generalized anxiety disorder F41.1 [place] [address] [id number] [place] [address] 81140- 8104 May, [facility] [id number] [place] [address] 05684- 3977 May, [facility] [id number] [place] [address] 29388- 6344 May, Coughing R05 [place] [address] 61855- 5015 May, [facility] [address] 81750- 0387 May, Bipolar affective disorder, currently depressed, moderate F31.32 ; Vascular dementia without behavioral disturbance F01.50 and Generalized anxiety disorder F41.1 [place] [address] 87155- 4676 Apr, Generalized anxiety disorder F41.1 [place] [address] 75853- 6178 Apr, [place] [address] [place] [id number] [place] [address] 14854- 0181 Apr, Vascular dementia without behavioral disturbance F01.50 ; Generalized anxiety disorder F41.1 and Bipolar affective disorder, currently depressed, moderate F31.32 [place] [address] [id number] [place] [address] 21633- 2859 Apr, Generalized anxiety disorder F41.1 [facility] [id number] [place] [address] 32012 -6789 Apr, Cough R05 and Acute exacerbation of chronic obstructive pulmonary disease (COPD) J44.1 [place] [address] 96602- 2205 Apr, [facility] [id number] [place] [address] 46518 -2459 Mar, Cough R05 and Cigarette nicotine dependence without complication F17.210 [place] [address] 05894- 2419 Mar, [place] [address] [place] [id number] [place] [address] 53739- 8323 Feb, Generalized anxiety disorder F41.1 ; Major depressive disorder, recurrent episode, moderate F33.1 ; Vascular dementia without behavioral disturbance F01.50 and Unspecified psychosis F29 [place] [address] [place] [id number] [place] [address] 92843- 6059 Feb, [place] [address] [place] [id number] [place] [address] 24204- 8570 Feb, [place] [address] [id number] [place] [address] 09792- 1051 Feb, Generalized anxiety disorder F41.1 [place] [address] [id number] [place] [address] 92751- 6696 Feb, Generalized anxiety disorder F41.1 [place] [address] [id number] [place] [address] 41577- 0071 Feb, Dizziness R42 ; Chronic fatigue R53.82 ; Postconcussion syndrome F07.81 ; Fall, initial encounter W19.XXXA and Disorientation R41.0 [place] [address] [place] [id number] [place] [address] 46201- 9124 Feb, Postconcussion syndrome F07.81 ; Injury of head, initial encounter S09.90XA ; Fall, initial encounter W19.XXXA ; Disorientation R41.0 and Acute cystitis with hematuria N30.01 [place] [address] [place] [address] 85321- 1267 Jan, Gastroesophageal reflux disease, esophagitis presence not specified K21.9 ; Post-menopausal Z78.0 and Migraine without aura and without status migrainosus, not intractable G43.009 [place] [address] [place] [id number] [place] [address] 68754- 2363 Jan, [place] [address] [place] [id number] [place] [address] 76888- 8582 Jan, Generalized anxiety disorder F41.1 ; Major depressive disorder, recurrent episode, moderate F33.1 ; Vascular dementia without behavioral disturbance F01.50 and Unspecified psychosis F29 [place] [address] [place] [id number] [place] [address] 68882- 3392 Jan, Pneumonia of left lower lobe due to infectious organism J18.1 [place] [address] [place] [id number] [place] [address] 14281- 1562 Jan, Migraine without aura and with status migrainosus, not intractable G43.001 [facility] [address] [id number] [place] [address] 82880 -8829 Jan, Migraine without aura and without status migrainosus, not intractable G43.009 [place] [address] [place] [id number] [place] [address] 99191- 2129 Dec, Hematoma T14.8 [place] [address] 95307- 6793 Dec, [facility] [address] [id number] [place] [address] 40127 -0301 Nov, Fatigue, unspecified type R53.83 [place] [address] [id number] [place] [address] 18855- 7421 Nov, Scabies B86 and Coronary artery disease involving [place] coronary artery of [place] heart with other form of angina pectoris I25.118 [place] [address] [place] [id number] [place] [address] 05023- 4487 Nov, [place] [address] [place] [id number] [place] [address] 09895- 3787 Nov, [place] [address] 71507- 1814 Oct, [place] [address] [place] [id number] [place] [address] 45629- 8537 Oct, Generalized anxiety disorder F41.1 and Major depressive disorder, recurrent episode, moderate F33.1 [facility] [address] [address]- 2588 19 Oct, 2016 Cramp of both lower extremities R25.2 [facility] [id number] [place] [address] 55987- 0177 Oct, Leg cramps R25.2 [facility] [id number] [place] [address] 73792- 1857 Oct, Chronic pain syndrome G89.4 [facility] [id number] [place] [address] 08154- 7444 Oct, [facility] [address] [place] [id number] [place] [address] 36546- 4847 Oct, [facility] [address] [id number] [place] [address] 04777- 8114 Oct, Routine gynecological examination Z01.419 and Screening for breast cancer Z12.31 [facility] [id number] [place] [address] 14327- 1834 Sep, Diarrhea R19.7 [facility] [address] [id number] [place] [address] 30613- 5060 Sep, Back pain M54.9 [facility] [id number] [place] [address] 49687- 4224 Sep, [facility] [id number] [place] [address] 12553- 6703 Sep, [facility] [id number] [place] [address] 52633 -4847 August, Xeroderma Q80.9 [facility] [id number] [place] [address] 23479- 6181 August, Dementia without behavioral disturbance, unspecified dementia type F03.90 [facility] [id number] [place] [address] 52222- 5690 August, Chronic pain syndrome G89.4 [place] [address] [address] [id number] [place] [address] 03199- 9494 August, [place] [address] 38105- 3843 August, Hyperlipidemia E78.5 ; Other fatigue R53.83 and Other specified hypotension I95.89 [facility] [address] 77165 -2135 August, Dysuria R30.0 ; Other fatigue R53.83 and Other specified hypotension I95.89 [place] [address] 90850- 0342 August, [place] [address] 75630- 4785 Jul, Pain in left knee M25.562 and Gastroenteritis K52.9 [place] [address] 00311- 8814 Jul, [place] [address] 72854- 9984 Jul, Diarrhea R19.7 [facility] [place] [address] 31982 -1851 Jul, Spider bite, accidental or unintentional, initial encounter T63.301A [place] [address] 24815- 5354 Jul, Primary osteoarthritis of right knee M17.11 and Arthritis M19.90 [place] [address] [id number] [place] [address] 91361- 7635 Jul, Generalized anxiety disorder F41.1 and Major depressive disorder, recurrent episode, moderate F33.1 [place] [address] 20858- 9374 07 Jul, 2016 Type 2 diabetes mellitus with diabetic polyneuropathy E11.42 and Temporal headache R51 [place] [address] 69071- 3759 Jul, Back pain M54.9 [facility] [address] 77296- 5864 Jul, [facility] [address] 17648- 5904 Jul, [facility] [address] 03727- 6310 30 Jun, 2016 Nausea R11.0 [facility] [address] 78516 -7538 Jun, Acute suppurative otitis media of both ears without spontaneous rupture of tympanic membranes, recurrence not specified H66.003 and COPD exacerbation J44.1 [place] [address] 22543- 9080 Jun, Generalized anxiety disorder F41.1 [place] [address] 13873- 3210 16 Jun, 2016 [facility] [address] 97541 -8716 Jun, [facility] [address] 76552 -5953 Jun, Shortness of breath R06.02 and COPD exacerbation J44.1 [place] [address] 03190- 4956 10 Jun, 2016 Eczema, unspecified type L30.9 [facility] [address] 28956- 9637 09 Jun, 2016 [facility] [address] 58542- 7853 24 May, 2016 [place] [address] 98989- 8739 May, Muscle cramping R25.2 [place] [address] [place] [address] [address]- 1332 May, [facility] [id number] [place] [address] 33015- 6474 Apr, Diarrhea R19.7 [facility] [id number] [place] [address] 64112- 2656 Apr, [facility] [address] [address] Apr, Chronic pain syndrome G89.4 [address] [address] [address] Apr, Cramp of both lower extremities R25.2 and Vascular dementia without behavioral disturbance F01.50 [address] [place] [id number] [place] [address] Apr, Type 2 diabetes mellitus with diabetic polyneuropathy E11.42 and Cigarette nicotine dependence without complication F17.210 [place] [id number] [place] [address] Mar, Generalized anxiety disorder F41.1 [place] [place] [address] [address] Feb, Generalized anxiety disorder F41.1 and Major depressive disorder, recurrent episode, moderate F33.1 [address] [place] [id number] [place] [address]- 6711 Feb, [facility] [id number] [place] [address] 13425 -0761 Feb, Dysuria R30.0 and Acute cystitis with hematuria N30.01 [facility] [address] 76749- 4707 Jan, [facility] [id number] [place] [address] 92689- 8274 Jan, [facility] [address] 08696- 0364 Jan, [facility] [id number] [place] [address] 38887- 5535 Jan, [facility] [id number] [place] [address] 11150 -8633 10 Jan, 2016 Wasp sting, accidental or unintentional, initial encounter T63.461A [facility] [id number] [place] [address] 66149- 9006 06 Jan, 2016 Encounter for immunization Z23 [facility] [address] 69080- 7244 Jan, [facility] [address] 62173- 0368 Jan, [facility] [id number] [place] [address] 70158- 9948 28 Dec, 2015 Generalized anxiety disorder F41.1 and Major depressive disorder, recurrent episode, moderate F33.1 [facility] [id number] [place] [address] 57898- 9414 21 Dec, 2015 Routine gynecological examination Z01.419 ; Postmenopausal Z78.0 ; Screening breast examination Z12.39 ; Osteopenia M85.80 and Breast cancer screening Z12.39 [facility] [id number] [place] [address] 39925- 5896 20 Dec, 2015 [facility] [id number] [place] [address] 20568- 3381 19 Dec, 2015 [facility] [id number] [place] [address] 45174- 7402 16 Dec, 2015 [facility] [id number] [place] [address] 88915- 0452 16 Dec, 2015 [facility] [id number] [place] [address] 16712- 7279 14 Dec, 2015 [facility] [id number] [place] [address] 29166- 1439 06 Dec, 2015 [facility] [id number] [address]- 0462 Nov, [facility] [id number] [address] Nov, Cough R05 ; Other viral agents as the cause of diseases classified elsewhere B97.89 and Acute upper respiratory infection, unspecified J06.9 [facility] [id number] [address]- 0720 Nov, [facility] [id number] [address]- 5450 Nov, [facility] [id number] [address]- 7276 Nov, [facility] [id number] [address]- 5119 Nov, [facility] [id number] [address]- 3714 Nov, [facility] [id number] [address]- 0385 Oct, [facility] [id number] [address]- 7751 Oct, [facility] [id number] [address]- 5140 Oct, [facility] [id number] [address]- 4852 Oct, Chronic pain syndrome G89.4 [facility] [id number] [address]- 3779 Sep, Generalized anxiety disorder F41.1 and Major depressive disorder, recurrent episode, moderate F33.1 [facility] [id number] [address]- 5150 Sep, [facility] [id number] [address]- 2126 Sep, [facility] [id number] [place] [address] 53371- 0893 14 Sep, 2015 Generalized anxiety disorder F41.1 [facility] [id number] [place] [address] 53400- 8492 13 Sep, 2015 Cramp of both lower extremities R25.2 and Cervicalgia M54.2 [facility] [id number] [place] [address] 64654- 5094 06 Sep, 2015 Generalized anxiety disorder F41.1 [facility] [id number] [place] [address] 58701- 5072 Sep, [facility] [id number] [place] [address] 37081 -3105 August, Rash R21 ; Itching L29.9 and Allergic response, subsequent encounter T78.40XD [facility] [facility] [id number] [place] [address] 36086- 5015 August, Primary insomnia F51.01 [facility] [id number] [place] [address] 22105 -2212 August, Rash R21 ; Itching L29.9 and Allergic response, initial encounter T78.40XA [place] [facility] [id number] [place] [address] 89412- 2512 August, [facility] [id number] [place] [address] 69000- 0243 August, Cramp of both lower extremities R25.2 [facility] [id number] [place] [address] 68985- 6242 August, Back pain M54.9 [facility] [id number] [place] [address] 23893- 4735 August, [facility] [id number] [place] [address] 60775- 2554 August, [facility] [address] [place] [address] August, Cramp of both lower extremities R25.2 [facility] [id number] [place] [address] 09102- 5235 August, [facility] [id number] [place] [address] 66768- 9557 August, Syncope R55 ; Paroxysmal atrial fibrillation I48.0 ; Dementia without behavioral disturbance, unspecified dementia type F03.90 and Chronic pain syndrome G89.4 [facility] [id number] [place] [address] 51717- 6723 August, Type 2 diabetes mellitus with diabetic polyneuropathy E11.42 and Syncope R55 [facility] [id number] [place] [address] 07919- 7340 Jul, [facility] [id number] [place] [address] 35702- 4394 Jul, [facility] [id number] [place] [address] 19718- 1970 Jul, [facility] [id number] [place] [address] 42597- 4056 Jul, [facility] [id number] [place] [address] 24632- 8937 Jul, [facility] [id number] [place] [address] 07120- 1917 Jul, UTI (urinary tract infection) N39.0 [facility] [id number] [address]- 4130 Jul, [facility] [id number] [place] [address] 25364- 8874 Jul, Major depressive disorder, recurrent episode, moderate F33.1 and Generalized anxiety disorder F41.1 [facility] [id number] [address]- 6540 Jul, Generalized anxiety disorder F41.1 [facility] [id number] [address]- 5798 14 Jul, 2015 Diarrhea R19.7 [facility] [id number] [address]- 4946 14 Jul, 2015 [facility] [id number] [address]- 5346 Jun, [facility] [id number] [place] [address] 58246 2546 Jun, Eczema L30.9 [facility] [id number] [place] [address] 15324- 3856 Jun, [facility] [id number] [place] [address] 00346- 8981 Jun, COPD (chronic obstructive pulmonary disease) J44.9 [facility] [id number] [place] [address] 88646- 5862 Jun, [facility] [id number] [address]- 2096 Jun, Major depressive disorder, recurrent episode, moderate F33.1 and Generalized anxiety disorder F41.1 [facility] [id number], [place] [address]- 3769 May, [facility] [id number] [address]- 8296 May, UTI (urinary tract infection) N39.0 [facility] [id number] [address]- 1323 May, [facility] [id number] [address]- 0897 May, [facility] [id number] [address]- 7946 May, [facility] [id number], [place] [address]- 3825 May, [facility] [id number] [address]- 5556 Apr, Major depressive disorder, recurrent episode, moderate F33.1 and Generalized anxiety disorder F41.1 [facility] [id number] [address]- 5702 Apr, COPD (chronic obstructive pulmonary disease) J44.9 [facility] [id number] [place] [address] 46590- 4687 Apr, [facility] [id number] [place] [address] 76573- 5085 Apr, Atrial flutter I48.92 [facility] [id number] [place] [address] 21523- 3032 Apr, [facility] [id number] [place] [address] 80146- 5438 Apr, [facility] [id number] [place] [address] 39891- 4276 Mar, [facility] [id number] [place] [address] 29141- 3142 Mar, [facility] [id number] [address]- 2298 Mar, [facility] [id number] [address]- 8440 Mar, Hyperlipidemia E78.5 ; Type 2 diabetes mellitus with diabetic polyneuropathy E11.42 ; Major depressive disorder, recurrent episode, moderate F33.1 and Chronic pain syndrome G89.4 [facility] [id number] [address]- 6175 Mar, [facility] [id number] [address]- 6225 Mar, [facility] [id number], [place] [address]- 1691 Mar, [facility] [id number], [place] [address]- 3958 Mar, [facility] [id number] [place] [address] 82689- 7982 Feb, COPD (chronic obstructive pulmonary disease) J44.9 and Back pain M54.9 [facility] [id number] [place] [address] 22504- 4909 Feb, [facility] [id number] [place] [address] 63409- 7140 Feb, [facility] [id number] [place] [address] 13128- 1289 Feb, [facility] [id number] [place] [address] 15242- 8506 Feb, [facility] [id number] [place] [address] 82556- 4129 Feb, [facility] [id number] [place] [address] 64620- 9521 Feb, [facility] [id number] [place] [address] 35800- 5979 Feb, [facility] [id number] [place] [address] 16935- 8122 Feb, [facility] [id number] [place] [address] 84496- 2413 Feb, Diabetes E11.9 ; Back pain M54.9 and COPD (chronic obstructive pulmonary disease) J44.9 [facility] [address] [address]- 0705 Jan, [facility] [id number] [place] [address] 35802- 3035 Jan, Major depression, recurrent F33.9 and Generalized anxiety disorder F41.1 [facility] [id number] [place] [address] 15276- 6075 Jan, Chronic pain G89.29 [facility] [id number] [address]- 5213 Jan, [facility] [id number] [place] [address] 69782- 3588 Jan, [facility] [id number] [place] [address] 33268- 6641 Jan, [facility] [id number] [place] [address] 06699- 6249 Jan, [facility] [id number] [place] [address] 52119- 9954 Jan, Nicotine dependence F17.200 [facility] [id number] [place] [address] 19222- 6914 Jan, Nicotine dependence F17.200 and Back pain M54.9 [facility] [id number] [place] [address] 73138- 1416 Jan, [facility] [id number] [place] [address] 97987- 7743 28 Dec, 2014 [facility] [id number] [place] [address] 90670- 6779 25 Dec, 2014 Anxiety, generalized 300.02 and Major depression, recurrent 296.30 [facility] [id number] [place] [address] 05354- 7390 24 Dec, 2014 [facility] [id number] [place] [address] 55224- 1356 21 Sep, 2014 [facility] [id number] [place] [address] 39407- 7563 17 Dec, 2014 [facility] [id number] [place] [address] 06677- 8301 15 Dec, 2014 [facility] [id number] [place] [address] 38136- 3586 14 Dec, 2014 [facility] [address] [address]- 7727 11 Dec, 2014 [facility] [id number], [place] [address]- 9062 Dec, [facility] [id number] [place] [address] 79770- 3989 08 Dec, 2014 Skin tear 879.8 [facility] [id number] [place] [address] 40649- 9776 Dec, Routine gynecological examination V72.31 ; Breast cancer screening V76.10 and Family history of breast cancer in first degree relative V16.3 [facility] [id number] [place] [address] 42624- 2553 Dec, [facility] [id number] [place] [address] 25129- 4457 Dec, [facility] [id number] [place] [address] 12204- 3589 Nov, [facility] [id number] [place] [address] 89647- 6725 Nov, [facility] [id number] [place] [address] 32376- 8485 Nov, Poor balance 781.99 and Vascular dementia, uncomplicated 290.40 [facility] [id number] [place] [address] 55434- 9507 Nov, [facility] [id number] [place] [address] 63217- 8521 Nov, Major depression, recurrent 296.30 and Anxiety, generalized 300.02 [facility] [id number] [place] [address] 11431- 0533 Nov, [facility] [id number] [place] [address] 15629- 1116 Nov, [facility] [id number] [place] [address] 11202- 4988 Nov, [facility] [address] [address]- 1487 Nov, [facility] [id number] [place] [address] 77489- 8497 Nov, Vascular dementia, uncomplicated 290.40 and Lumbago 724.2 [facility] [id number] [address]- 1551 Nov, [facility] [id number] [place] [address] 28951- 0297 Nov, [facility] [id number] [place] [address] 43068- 4980 Nov, [facility] [id number] [place] [address] 94850- 5480 Oct, [facility] [id number] [place] [address] 36642- 6499 Oct, [facility] [id number] [address]- 6307 Oct, [facility] [id number] [place] [address] 72585- 9451 Oct, COPD (chronic obstructive pulmonary disease) 496 and Hyperlipidemia 272.4 [facility] [address] [address]- 2277 Oct, Major depression, recurrent 296.30 and Anxiety, generalized 300.02 [facility] [id number] [address]- 9794 Oct, [facility] [id number] [address]- 3126 Oct, [facility] [id number], [place] [address]- 0683 Oct, [facility] [id number] [address]- 6281 Sep, Lumbago 724.2 and Anxiety state, unspecified 300.00 [facility] [id number] [address]- 2005 Sep, [facility] [id number] [place] [address] 03528- 9737 Sep, [facility] [id number] [address]- 7794 August, [facility] [id number] [place] [address] 82923- 9392 August, Major depression, recurrent 296.30 ; Anxiety, generalized 300.02 and No condition on [place] II V71.09 [facility] [id number] [place] [address] 46414- 9347 August, [facility] [id number] [place] [address] 37988- 0621 August, [facility] [id number] [place] [address] 81928- 5707 Jul, [facility] [id number] [address]- 6247 Jul, [facility] [id number] [place] [address] 42447- 0976 Jul, [facility] [id number], [place] [address]- 0262 Jun, [facility] [id number], [place] [address]- 2754 Jun, [facility] [id number] [address]- 0347 Jun, [facility] [id number] [place] [address], [place] [address]- 6979 Jun, [facility] [id number] [address]- 0832 Jun, [facility] [id number] [place] [address] 24972- 7596 23 Jun, 2014 [facility] [place] [facility] [address] [id number] [place] [address]- 7540 23 Jun, 2014 [facility] [place] [facility] [address] [id number] [place] [address]- 3441 17 Jun, 2014 [facility] [place] [facility] [address] [id number] [place] [address]- 2948 13 Jun, 2014 [facility] [place] [facility] [address] [id number] [place] [address]- 3391 13 Jun, 2014 [facility] [place] [facility] [address] [id number] [place] [address]- 9854 10 Jun, 2014 [facility] [place] [facility] [address] [id number] [place] [address]- 0293 10 Jun, 2014 [facility] [place] [facility] [address] [facility] [id number] [place] [address]- 2918 Jun, [facility] [place] [facility] [address] [id number] [place] [address]- 6725 Jun, [facility] [place] [facility] [address] [id number] [place] [address]- 1043 Jun, [facility] [place] [facility] [address] [id number] [place] [address]- 8091 Jun, [facility] [place] [facility] [address] [id number] [place] [address]- 7104 May, 2014 [facility] [place] [facility] [address] [id number] [place] [address]- 5281 May, 2014 [facility] [place] [facility] [address] [id number] [place] [address]- 8438 May, 2014 [facility] [place] [facility] [address] [id number] [place] [address]- 4506 May, 2014 [facility] [place] [facility] [address] [facility] [id number] [place] [address]- 0570 May, 2014 [facility] [place] [facility] [address] [id number] [place] [address]- 2109 May, 2014 [facility] [place] [facility] [address] [id number] [place] [address]- 4306 May, 2014 [facility] [place] [facility] [address] [id number] [place] [address] 2546 May, 2014 [facility] [place] [facility] [address] [id number] [place] [address]- 2826 May, 2014 [facility] [place] [facility] [address] [id number] [place] [address]- 7290 May, 2014 [facility] [place] [facility] [address] [id number] [place] [address]- 4316 May, 2014 [facility] [place] [facility] [address] [facility] [id number] [place] [address]- 2977 May, 2014 [facility] [place] [facility] [address] [id number] [place] [address]- 4957 May, 2014 [facility] [place] [facility] [address] [id number] [place] [address]- 8174 May, 2014 [facility] [place] [facility] [address] [facility] [id number] [place] [address]- 2996 Apr, [facility] [place] [facility] [address] [id number] [place] [address]- 1394 Apr, [facility] [place] [facility] [address] [id number] [place] [address]- 4152 Apr, [facility] [place] [facility] [address] [id number] [place] [address] 2543 Apr, [facility] [place] [facility] [address] [id number] [place] [address] Apr, [facility] [place] [facility] [address] [id number] [place] [address] Apr, [facility] [place] [facility] [address] [id number] [place] [address] Apr, [facility] [address] [id number] [place] [address] Apr, [facility] [place] [facility] [address] [id number] [place] [address] Apr, [facility] [place] [facility] [address] [id number] [place] [address] Apr, [facility] [place] [facility] [address] [id number] [place] [address] Apr, [facility] [place] [facility] [address] [id number] [place] [address] Apr, [facility] [place] [facility] [address] [id number] [place] [address] Mar, [facility] [address] [id number] [place] [address] 31 Mar, 2014 [facility] [place] [facility] [address] [id number] [place] [address] 30 Mar, 2014 [facility] [place] [facility] [address] [id number] [place] [address] 30 Mar, 2014 [facility] [place] [facility] [address] [id number] [place] [address] 29 Mar, 2014 [facility] [place] [facility] [address] [id number] [place] [address] 29 Mar, 2014 [facility] [place] [facility] [address] [id number] [place] [address] 19 Mar, 2014 [facility] [place] [facility] [address] [id number] [place] [address] Mar, [facility] [place] [facility] [address] [id number] [place] [address] 15 Mar, 2014 [facility] [place] [facility] [address] [id number] [place] [address] 15 Mar, 2014 [facility] [place] [facility] [address] [id number] [place] [address] 15 Mar, 2014 [facility] [place] [facility] [address] [id number] [place] [address] Mar, [facility] [place] [facility] [address] [id number] [place] [address] Mar, [facility] [place] [facility] [address] [id number] [place] [address] Mar, [facility] [place] [facility] [address] [id number] [place] [address] Mar, [facility] [place] [facility] [address] [id number] [place] [address] Mar, [facility] [place] [facility] [address] [id number] [place] [address] Mar, [facility] [place] [facility] [address] [id number] [place] [address] Mar, [facility] [place] [facility] [address] [id number] [place] [address] Mar, [facility] [place] [facility] [address] [id number] [place] [address] Mar, [facility] [place] [facility] [address] [id number] [place] [address] Feb, [facility] [place] [facility] [address] [id number] [place] [address] Feb, [facility] [place] [facility] [address] [id number] [place] [address] Feb, [facility] [place] [facility] [address] [id number] [place] [address] Feb, [facility] [place] [facility] [address] [id number] [place] [address] Feb, [facility] [place] [facility] [address] [id number] [place] [address] Feb, [facility] [place] [facility] [address] [id number] [place] [address] Feb, [facility] [place] [facility] [address] [id number] [place] [address] Feb, [facility] [place] [facility] [address] [id number] [place] [address] Feb, [facility] [place] [facility] [address] [id number], [place] [address] Feb, [facility] [place] [facility] [address] [id number] [place] [address] Feb, [facility] [place] [facility] [address] [id number], [place] [address] Feb, [facility] [place] [facility] [address] [id number] [place] [address] Feb, [facility] [place] [facility] [address] [id number], [place] [address] Feb, [facility] [place] [facility] [address] [id number], [place] [address] Feb, [facility] [place] [facility] [address] [id number], [place] [address] Feb, [facility] [place] [facility] [address] [id number], [place] [address] Feb, [facility] [place] [facility] [address] [id number], [place] [address] Jan, [facility] [place] [facility] [address] [id number], [place] [address] Jan, [facility] [place] [facility] [address] [id number], [place] [address] Jan, [facility] [place] [facility] [address] [id number], [place] [address] Jan, [facility] [place] [facility] [address] [address] [id number] [place] [address] Jan, [facility] [place] [facility] [address] [id number] [place] [address] 8[address] Jan, [facility] [place] [facility] [address] [id number] [place] [address] 2480 Jan, [facility] [place] [facility] [address] [id number] [place] [address] 9342 Jan, [facility] [place] [facility] [address] [id number] [place] [address] 7437 Jan, [facility] [place] [facility] [address] [id number] [place] [address] 6774 Jan, [facility] [place] [facility] [address] [id number] [place] [address] 4502 Jan, [facility] [place] [facility] [address] [id number] [place] [address] 4889 Dec, [facility] [place] [facility] [address] [id number] [place] [address] 4471 Dec, [facility] [place] [facility] [address] [id number] [place] [address] 5368 Nov, [facility] [place] [facility] [address] [id number] [place] [address] 4057 Nov, [facility] [place] [facility] [address] [id number] [place] [address] 2946 Nov, [facility] [place] [facility] [address] [id number] [place] [address] 1286 Nov, [facility] [place] [facility] [address] [id number] [place] [address] 6021 Nov, [facility] [place] [facility] [address] [id number] [place] [address] 5101 Nov, [facility] [place] [facility] [address] [id number] [place] [address]- 7302 Nov, [facility] [place] [facility] [address] [id number] [place] [address] 5249 Oct, 2013 [facility] [place] [facility] [address] [id number] [place] [address] 1941 Oct, [facility] [place] [facility] [address] [id number] [place] [address]- 4979 Oct, [facility] [place] [facility] [address] [id number] [place] [address]- 9071 Oct, [facility] [place] [facility] [address] [id number] [place] [address] 7059 Sep, [facility] [place] [facility] [address] [id number] [place] [address]- 0358 Sep, [facility] [place] [facility] [address] [id number] [place] [address]- 5965 Sep, [facility] [place] [facility] [address] [id number] [place] [address]- 8220 Sep, [facility] [place] [facility] [address] [id number] [place] [address]- 3667 Sep, [facility] [place] [facility] [address] [id number] [place] [address]- 3833 Sep, [facility] [place] [facility] [address] [id number] [place] [address]- 7544 Sep, [facility] [place] [facility] [address] [id number] [place] [address]- 6617 Sep, [facility] [place] [facility] [address] [id number] [place] [address]- 9449 Sep, [facility] [place] [facility] [address] [id number] [place] [address]- 1709 Sep, [facility] [place] [facility] [address] [id number] [place] [address]- 4087 05 Sep, 2013 [facility] [place] [facility] [address] [id number] [place] [address]- 0949 Sep, [facility] [place] [facility] [address] [id number] [place] [address]- 1777 Sep, [facility] [place] [facility] [address] [id number] [place] [address]- 3324 Sep, [facility] [place] [facility] [address] [id number] [place] [address] 1986 August, [facility] [place] [facility] [address] [id number] [place] [address] 1920 August, [facility] [place] [facility] [address] [id number] [place] [address]- 4735 August, [facility] [place] [facility] [address] [id number] [place] [address]- 9208 August, [facility] [place] [facility] [address] [id number] [place] [address]- 0793 August, [facility] [place] [facility] [address] [id number] [place] [address]- 8961 August, [facility] [place] [facility] [address] [id number] [place] [address]- 0597 August, [facility] [place] [facility] [address] [id number] [place] [address]- 3003 August, [facility] [place] [facility] [address] [id number] [place] [address] 2990 August, [facility] [place] [facility] [address] [id number] [place] [address] 9688 August, [facility] [place] [facility] [address] [id number] [place] [address] 3432 August, [facility] [place] [facility] [address] [id number] [place] [address]- 6823 August, [facility] [place] [facility] [address] [id number] [place] [address]- 1701 August, [facility] [place] [facility] [address] [id number] [place] [address]- 3738 August, [facility] [address] [id number] [place] [address]- 9716 August, [facility] [place] [facility] [address] [id number] [place] [address] 9206 August, [facility] [address] [id number] [place] [address] 6395 August, [facility] [address] [id number] [place] [address] 9025 August, [facility] [address] [id number] [place] [address]- 4728 August, [facility] [address] [id number] [place] [address]- 1513 Jul, [facility] [address] [id number] [place] [address]- 8196 Jul, [facility] [address] [id number] [place] [address]- 4529 Jul, [facility] [address] [id number] [place] [address]- 0256 Jul, [facility] [address] [id number] [place] [address]- 7852 Jun, [facility] [place] [facility] [address] [id number] [place] [address]- 7969 Jun, [facility] [place] [facility] [address] [id number] [place] [address]- 8258 Jun, [facility] [place] [facility] [address] [id number] [place] [address]- 8441 Jun, [facility] [place] [facility] [address] [id number] [place] [address]- 8766 Jun, [facility] [place] [facility] [address] [id number] [place] [address] [address] Jun, [facility] [place] [facility] [address] [id number] [place] [address]- 6259 14 Jun, 2013 [facility] [place] [facility] [address] [id number] [place] [address]- 8393 14 Jun, 2013 [facility] [place] [facility] [address] [id number] [place] [address]- 6065 Jun, [facility] [place] [facility] [address] [id number] [place] [address]- 9791 Jun, [facility] [place] [facility] [address] [id number] [place] [address] 1892 May, [facility] [place] [facility] [address] [id number] [place] [address] 1892 May, [facility] [place] [facility] [address] [facility] [facility] [id number] [place] [address]- 5434 May, [facility] [place] [facility] [address] [id number] [place] [address]- 7132 May, [facility] [place] [facility] [address] [facility] [id number] [place] [address]- 9225 May, [facility] [place] [facility] [address] [facility] [id number] [place] [address]- 3079 May, [facility] [place] [facility] [address] [facility] [id number] [place] [address]- 2808 May, [facility] [place] [facility] [address] [facility] [id number] [place] [address]- 6931 May, [facility] [place] [facility] [address] [id number] [place] [address]- 7395 May, [facility] [place] [facility] [address] [facility] [id number] [place] [address]- 0986 18 May, 2013 [facility] [place] [facility] [address] [facility] [id number] [place] [address]- 9786 May, [facility] [place] [facility] [address] [id number] [place] [address]- 8569 17 May, 2013 [facility] [place] [facility] [address] [id number] [place] [address]- 9298 May, [facility] [place] [facility] [address] [id number] [place] [address]- 0086 May, [facility] [place] [facility] [address] [id number] [place] [address]- 3507 May, [facility] [place] [facility] [address] [id number] [place] [address]- 4149 May, [facility] [place] [facility] [address] [id number] [place] [address] May, [facility] [place] [facility] [address] [id number] [place] [address]- 0238 Apr, [facility] [place] [facility] [address] [id number] [place] [address]- 1753 Apr, [facility] [place] [facility] [address] [id number] [place] [address]- 4108 Apr, [facility] [place] [facility] [address] [id number] [place] [address]- 8082 Apr, [facility] [place] [facility] [address] [facility] [id number] [place] [address]- 4338 Apr, [facility] [place] [facility] [address] [id number], [place] [address]- 0558 Apr, [facility] [place] [facility] [address] [id number] [place] [address]- 3275 Apr, [facility] [place] [facility] [address] [id number] [place] [address]- 4616 Mar, [facility] [place] [facility] [address] [id number] [place] [address]- 0256 Mar, [facility] [place] [facility] [address] [id number], [place] [address]- 4714 Mar, [facility] [address] [id number] [place] [address]- 5255 Mar, [facility] [place] [facility] [address] [id number] [place] [address]- 6575 Mar, [facility] [address] [id number] [place] [address]- 7693 Mar, [facility] [place] [facility] [address] [id number] [place] [address]- 7137 Mar, [facility] [address] [id number] [place] [address]- 2853 Mar, [facility] [address] [id number] [place] [address]- 2238 Mar, [facility] [address] [id number] [place] [address]- 2635 Mar, [facility] [place] [facility] [address] [id number] [place] [address]- 9933 Mar, [facility] [address] [id number] [place] [address]- 9586 Feb, [facility] [place] [facility] [address] [id number] [place] [address]- 6271 Feb, [facility] [address] [id number], [place] [address]- 7819 Feb, [facility] [place] [facility] [address] [id number], [place] [address]- 6629 Feb, [facility] [place] [facility] [address] [id number], [place] [address]- 4147 Feb, [facility] [place] [facility] [address] [id number], [place] [address]- 2204 Feb, [facility] [place] [facility] [address] [id number] [place] [address]- 5746 15 Feb, 2013 [facility] [place] [facility] [address] [id number] [place] [address]- 6090 14 Feb, 2013 [facility] [place] [facility] [address] [id number] [place] [address]- 5696 14 Feb, 2013 [facility] [place] [facility] [address] [id number] [place] [address]- 7693 13 Feb, 2013 [facility] [place] [facility] [address] [id number] [place] [address]- 3508 13 Feb, 2013 [facility] [place] [facility] [address] [id number] [place] [address]- 3963 12 Feb, 2013 [facility] [place] [facility] [address] [id number] [place] [address]- 1156 Feb, [facility] [place] [facility] [address] [id number] [place] [address]- 8374 Feb, [facility] [place] [facility] [address] [id number] [place] [address]- 6184 Feb, [facility] [place] [facility] [address] [id number] [place] [address]- 7588 Feb, [facility] [place] [facility] [address] [id number] [place] [address]- 5988 Jan, [facility] [place] [facility] [address] [id number] [place] [address]- 6961 Jan, [facility] [place] [facility] [address] [id number] [place] [address]- 9653 24 Jan, 2013 [facility] [place] [facility] [address] [id number] [place] [address]- 1407 Jan, [facility] [place] [facility] [address] [id number] [place] [address]- 3223 Jan, [facility] [place] [facility] [address] [id number] [place] [address]- 8483 Jan, [facility] [place] [facility] [address] [id number] [place] [address]- 8993 Jan, [facility] [place] [facility] [address] [id number] [place] [address]- 5415 Jan, [facility] [place] [facility] [address] [id number] [place] [address]- 6815 10 Jan, 2013 [facility] [place] [facility] [address] [id number] [place] [address]- 9646 27 Dec, 2012 [facility] [place] [facility] [address] [id number] [place] [address]- 6434 20 Dec, 2012 [facility] [place] [facility] [address] [id number] [place] [address]- 2856 Dec, [facility] [place] [facility] [address] [id number] [place] [address]- 4084 10 Dec, 2012 [facility] [place] [facility] [address] [id number] [place] [address]- 7582 04 Dec, 2012 [facility] [place] [facility] [address] [id number] [place] [address]- 4329 Dec, [facility] [place] [facility] [address] [id number] [place] [address]- 7610 Nov, [facility] [place] [facility] [address] [id number] [place] [address]- 0178 Nov, [facility] [place] [facility] [address] [id number] [place] [address]- 2441 Nov, [facility] [place] [facility] [address] [id number], [place] [address]- 6086 Nov, [facility] [place] [facility] [address] [id number] [place] [address]- 3371 Nov, [facility] [place] [facility] [address] [id number] [place] [address]- 1140 Nov, [facility] [place] [facility] [address] [id number] [place] [address]- 5309 Nov, [facility] [place] [facility] [address] [id number] [place] [address]- 3628 15 Nov, 2012 [facility] [place] [facility] [address] [id number] [place] [address]- 2643 14 Nov, 2012 [facility] [place] [facility] [address] [id number] [place] [address]- 5439 Nov, [facility] [place] [facility] [address] [id number] [place] [address]- 8983 Oct, [facility] [place] [facility] [address] [id number] [place] [address]- 2086 Oct, [facility] [place] [facility] [address] [id number] [place] [address]- 0037 Oct, [facility] [place] [facility] [address] [id number] [place] [address]- 3184 Oct, [facility] [place] [facility] [address] [id number] [place] [address]- 6236 Oct, [facility] [place] [facility] [address] [id number] [place] [address]- 1800 Oct, [facility] [place] [facility] [address] [id number] [place] [address]- 0542 Oct, [facility] [place] [facility] [address] [id number] [place] [address]- 0800 Oct, [facility] [place] [facility] [address] [id number] [place] [address]- 2321 Sep, [facility] [place] [facility] [address] [id number] [place] [address]- 3979 Sep, [facility] [place] [facility] [address] [id number] [place] [address]- 5372 Sep, [facility] [place] [facility] [address] [id number] [place] [address]- 4785 Sep, [facility] [place] [facility] [address] [id number] [place] [address]- 9340 Sep, [facility] [place] [facility] [address] [id number] [place] [address]- 9027 Sep, [facility] [address] [id number] [place] [address]- 7891 Sep, [facility] [address] [id number] [place] [address]- 6040 Sep, [facility] [address] [id number] [place] [address]- 3423 August, [facility] [address] [id number] [place] [address]- 3158 August, [facility] [address] [id number] [place] [address]- 7381 August, [facility] [address] [id number] [place] [address]- 5570 August, [facility] [address] [id number] [place] [address]- 7245 August, [facility] [address] [id number] [place] [address]- 8134 Jul, [facility] [address] [id number] [place] [address]- 3321 Jul, [facility] [address] [id number] [place] [address]- 8514 Jul, [facility] [address] [id number] [place] [address]- 5859 Jul, [facility] [address] [id number] [place] 2323 Jul, [facility] [place] [facility] [address] [id number] [place] [address] 9545 Jun, [facility] [place] [facility] [address] [id number] [place]75 Jun, [facility] [address] [id number] [place] [address]- 6611 15 Jun, 2012 [facility] [address] [id number] [place] [address]- 8474 14 Jun, 2012 [facility] [place] [facility] [address] [id number] [place] [address]- 7545 Jun, [facility] [place] [facility] [address] [id number] [place] [address]- 5810 Jun, [facility] [place] [facility] [address] [id number] [place] [address]- 3239 08 Jun, 2012 [facility] [place] [facility] [address] [id number] [place] [address]- 0644 Jun, [facility] [place] [facility] [address] [id number] [place] [address]- 6484 Jun, [facility] [place] [facility] [address] [id number] [place] [address]- 4657 May, [facility] [place] [facility] [address] [id number] [place] [address]- 5804 May, [facility] [place] [facility] [address] [id number] [place] [address]- 7374 May, [facility] [place] [facility] [address] [id number] [place] [address]- 2560 May, [facility] [place] [facility] [address] [id number], [place] [address]- 4350 Apr, [facility] [place] [facility] [address] [id number] [place] [address]- 5767 Apr, [facility] [place] [facility] [address] [id number] [place] [address]- 0377 Apr, [facility] [place] [facility] [address] [id number] [place] [address]- 7459 Apr, [facility] [place] [facility] [address] [id number] [place] [address]- 3974 Apr, [facility] [place] [facility] [address] [id number] [place] [address]- 8528 Apr, [facility] [address] [id number] [place] [address]- 0262 Apr, [facility] [address] [id number] [place] [address]- 0490 Mar, [facility] [place] [id number] Mar, [facility] [address] [id number] [place] [address]- 7545 Mar, [facility] [address] [id number] [place] [address]- 4766 Mar, [facility] [address] [id number] [place] [address]- 8873 Mar, [facility] [address] [id number] [place] [address]- 8344 Mar, [facility] [address] [id number] [place] [address]- 7583 Mar, [facility] [address] [id number] [place] [address]- 8241 Mar, [facility] [address] [id number] [place] [address]- 0472 Mar, [facility] [address] [id number] [place] [address]- 1858 Mar, [facility] [address] [id number] [place] [address]- 0618 Mar, [facility] [address] [id number] [place] [address]- 7822 Mar, [facility] [address] [id number] [place] [address] Mar, [facility] [address] [id number] [place] [address] Mar, [facility] [place] [facility] [address] [id number] [place] [address] Mar, [facility] [place] [facility] [address] [id number] [place] [address] Mar, [facility] [place] [facility] [address] [id number] [place] [address] Mar, [facility] [place] [facility] [address] [id number] [place] [address] Feb, [facility] [place] [facility] [address] [id number] [place] [address] Feb, [facility] [place] [facility] [address] [id number] [place] [address] Feb, [facility] [place] [facility] [address] [id number] [place] [address] Feb, [facility] [place] [facility] [address] [id number] [place] [address] Feb, [facility] [place] [facility] [address] [id number] [place] [address] Feb, [facility] [place] [facility] [address] [id number] [place] [address] Feb, [facility] [place] [facility] [address] [id number] [place] [address] Feb, [facility] [place] [facility] [address] [id number] [place] [address] Feb, [facility] [place] [facility] [address] [id number] [place] [address] Feb, [facility] [place] [facility] [address] [id number] [place] [address] Feb, [facility] [place] [facility] [address] [id number] [place] [address] Feb, [facility] [place] [facility] [address] [id number], [place] [address] Feb, [facility] [place] [facility] [address] [id number] [place] [address] Feb, [facility] [place] [facility] [address] [id number] [place] [address] Feb, [facility] [place] [facility] [address] [facility] [facility] [id number] [place] [address] Feb, [facility] [place] [facility] [address] [id number] [place] [address] Jan, [facility] [place] [facility] [address] [id number] [place] [address] Jan, [facility] [place] [facility] [address] [id number] [place] [address] Jan, [facility] [place] [facility] [address] [id number] [place] [address] Jan, [facility] [place] [facility] [address] [id number], [place] [address] Jan, [facility] [place] [facility] [address] [id number], [place] [address] Jan, [facility] [place] [facility] [address] [id number], [place] [address] Jan, [facility] [place] [facility] [address] [id number], [place] [address] Jan, [facility] [place] [facility] [address] [id number], [place] [address] Jan, [facility] [place] [facility] [address] [id number], [place] [address] Jan, [facility] [place] [facility] [address] [facility] [id number], [place] [address] Jan, [facility] [place] [facility] [address] [facility] [id number], [place] [address] Jan, [facility] [place] [facility] [address] [id number] [place] [address] 11 Jan, 2012 [facility] [place] [facility] [address] [id number] [place] [address] 11 Jan, 2012 [facility] [place] [facility] [address] [id number] [place] [address] 08 Jan, 2012 [facility] [place] [facility] [address] [id number] [place] [address] 05 Jan, 2012 [facility] [place] [facility] [address] [id number] [place] [address] 04 Jan, 2012 [facility] [place] [facility] [address] [id number] [place] [address] 21 Dec, 2011 [facility] [place] [facility] [address] [id number] [place] [address] 20 Dec, 2011 [facility] [place] [facility] [address] [id number] [place] [address] 18 Dec, 2011 [facility] [place] [facility] [address] [id number] [place] [address] 18 Dec, 2011 [facility] [place] [facility] [address] [id number] [place] [address] 10 Dec, 2011 [facility] [place] [facility] [address] [facility] [id number] [place] [address] 10 Dec, 2011 [facility] [place] [facility] [address] [id number] [place] [address] 2546 10 Dec, 2011 [facility] [place] [facility] [address] [id number] [place] [address]- [address] 07 Dec, 2011 [facility] [place] [facility] [address] [id number] [place] [address]- [address] 30 Nov, 2011 [facility] [place] [facility] [address] [id number] [place] [address] Nov, [facility] [place] [facility] [address] [id number] [place] [address]- [address] Nov, [facility] [place] [facility] [address] [id number] [place] [address] Nov, [facility] [place] [facility] [address] [id number] [place] [address] 39[address] Nov, [facility] [place] [facility] [address] [id number] [place] [address]- [address] Nov, [facility] [place] [facility] [address] [id number] [place] [address] Oct, [facility] [place] [facility] [address] [id number] [place] [address] 1604 Oct, [facility] [place] [facility] [address] [id number] [place] [address] Oct, [facility] [place] [facility] [address] [id number] [place] [address] Oct, [facility] [place] [facility] [address] [id number] [place] [address] 47[address] Oct, [facility] [place] [facility] [address] [id number] [place] [address] Oct, [facility] [place] [facility] [address] [id number] [place] [address] 350[address] Oct, [facility] [place] [facility] [address] [id number] [place] [address] Sep, [facility] [place] [facility] [address] [id number] [place] [address] Sep, [facility] [place] [facility] [address] [id number] [place] [address] Sep, [facility] [place] [facility] [address] [id number] [place] [address]- 48[address] Sep, [facility] [place] [facility] [address] [id number] [place] [address]- 63[address] Sep, [facility] [place] [facility] [address] [id number] [place] [address]- [address]28 15 Sep, 2011 [facility] [address] [id number] [place] [address]- [address] 14 Sep, 2011 [facility] [place] [facility] [address] [id number] [place] [address] Sep, [facility] [place] [facility] [address] [id number] [place] [address]- [address] 05 Sep, 2011 [facility] [place] [facility] [address] [id number] [place] [address] 04 Sep, 2011 [facility] [place] [facility] [address] [id number] [place] [address] August, [facility] [place] [facility] [address] [id number] [place] [address] August, [facility] [address] [id number] [place] [address] August, [facility] [place] [facility] [address] [id number] [place] [address] August, [facility] [place] [facility] [address] [id number] [place] [address] August, [facility] [place] [facility] [address] [id number] [place] [address] Jul, [facility] [place] [facility] [address] [id number] [place] [address] Jul, [facility] [place] [facility] [address] [id number] [place] [address] 25 Jul, 2011 [facility] [place] [facility] [address] [id number] [place] [address] 17 Jul, 2011 [facility] [place] [facility] [address] [id number] [place] [address] 11 Jul, 2011 [facility] [place] [facility] [address] [facility] [id number] [place] [address] Jul, [facility] [place] [facility] [address] [id number] [place] [address] Jul, [facility] [place] [facility] [address] [id number] [place] [address] Jun, [facility] [place] [facility] [address] [id number] [place] [address] Jun, [facility] [place] [facility] [address] [id number] [place] [address] Jun, [facility] [place] [facility] [address] [id number] [place] [address] Jun, [facility] [place] [facility] [address] [id number] [place] [address] Jun, [facility] [place] [facility] [address] [id number] [place] [address] May, [facility] [place] [facility] [address] [id number] [place] [address] May, [facility] [place] [facility] [address] [id number] [place] [address] May, [facility] [place] [facility] [address] [id number] [place] [address] May, [facility] [place] [facility] [address] [id number] [place] [address] May, [facility] [place] [facility] [address] [id number] [place] [address] May, [facility] [place] [facility] [address] [id number] [place] [address] Apr, [facility] [place] [facility] [address] [id number] [place] [address] Mar, [facility] [place] [facility] [address] [id number] [place] [address] Feb, [facility] [place] [facility] [address] [id number], [place] [address] 07 Feb, 2011 [facility] [place] [facility] [address] [id number] [place] [address] Feb, [facility] [place] [facility] [address] [id number] [place] [address] Feb, [facility] [place] [facility] [address] [id number] [place] [address] 31 Jan, 2011 [facility] [place] [facility] [address] [id number] [place] [address] 27 Jan, 2011 [facility] [place] [facility] [address] [id number] [place] [address] Jan, [facility] [place] [facility] [address] [id number] [place] [address] 24 Jan, 2011 [facility] [place] [facility] [address] [id number] [place] [address] 14 Jan, 2011 [facility] [place] [facility] [address] [id number] [place] [address] Dec, [facility] [place] [facility] [address] [id number] [place] [address] Oct, [facility] [place] [facility] [address] [id number] [place] [address] August, [facility] [place] [facility] [address] [id number], [place] [address] 29 Mar, 2010 [facility] [place] [facility] [address] [id number] [place] [address] 27 Mar, 2010 [facility] [place] [facility] [address] [id number] [place] [address] 1369 16 Mar, 2010 [facility] [place] [facility] [address] [id number] [place] [address] 15 Mar, 2010 [facility] [place] [facility] [address] [id number] [place] [address] 15 Mar, 2010 [facility] [place] [facility] [address] [id number] [place] [address] 08 Mar, 2010 [facility] [address] [id number] [place] [address] Mar, [facility] [place] [facility] [address] [id number] [place] [address] Feb, [facility] [address] [id number] [place] [address] 24 Feb, 2010 [facility] [place] [facility] [address] [id number] [place] [address] 15 Feb, 2010 [facility] [address] [id number] [place] [address] Jan, [facility] [place] [facility] [address] [id number] [place] [address] Jan, [facility] [address] [id number] [place] [address] Jan, [facility] [address] [id number] [place] [address] Nov, [facility] [place] [facility] [address] [id number] [place] [address] Sep, [facility] [address] [facility] [id number] [place] [address] August, [facility] [place] [facility] [address] [id number] [place] [address]45 30 Mar, 2009 [facility] [place] [facility] [address] [id number] [place] [address] 119[address] 07 Mar, 2009 [facility] [place] [facility] [address] [id number] [place] [address] 17 Feb, 2009 [facility] [place] [facility] [address] [id number] [place] [address] 10 Feb, 2009 [facility] [place] [facility] [address] [id number] [place] [address]67 Feb, [facility] [id number] [address] Feb, [facility] [id number], [place] [address] Feb, [facility] [id number], [place] [address] Jan, [facility] [id number], [place] [address] Jan, [facility] [id number], [place] [address] Jan, [facility] [id number] [place] [address] Jan, [facility] [id number], [place] [address] Nov, [facility] [id number], [place] [address] Sep, [facility] [id number], [place] [address] August, [facility] [id number], [place] [address] Jul, [facility] [id number] [address] May, IMMUNIZATIONS No Known Immunizations SOCIAL HISTORY Never Assessed REASON FOR VISIT Call re medication PLAN OF CARE VITAL SIGNS MEDICATIONS [...] Surgical History Excision cancerous lesion left elbow ([place]) 09/11/17 Surgical History elbow surgery 08/2017 Surgical [...] Knee Surgery 07/16/17 Hospitalization History [facility] [place]- left hand/wrist swelling 10/09/2017
--- OUTSIDE RECORDS SUMMARY | 2018-02-10 11:05 | XMS REPORT ---
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210 Active 28005637 Problem Vascular dementia without behavioral disturbance F01.50 Active 42472398099957609 Problem Arthritis M19.90 Active 6958947 Problem Chronic atrial fibrillation I48.2 Active 111795589 Problem Dementia without behavioral disturbance, unspecified dementia type F03.90 Active 72136625 Problem Other chronic pancreatitis K86.1 Active 693836622 Problem Xeroderma Q80.9 Active 22754133 Problem Chronic obstructive pulmonary disease with acute lower respiratory infection J44.0 Active 592926456 Problem Type 2 diabetes mellitus with diabetic neuropathy, without long-term current use of insulin E11.40 Active 19524349 Problem Atherosclerosis of [place] artery of both lower extremities with intermittent claudication I70.213 Active 304801678352450 Problem Hammertoe of right foot M20.41 Active 314871420 Problem Hammertoe of left foot M20.42 Active 724231837 Problem Migraine without aura and with status migrainosus, not intractable G43.001 Active 401370342 Problem Migraine without aura and without status migrainosus, not intractable G43.009 Active 854818346 Problem Major depressive disorder, recurrent episode, moderate F33.1 Active 948490606 Problem Unspecified psychosis F29 Active 46768156 Problem Cervicalgia M54.2 Active 5435984465182 Problem Diabetic polyneuropathy associated with type 2 diabetes mellitus E11.42 Active 08366838 Problem COPD (chronic obstructive pulmonary disease) J44.9 Active 51176694 Problem Atherosclerotic heart disease of [place]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 I25.118 Active 2549342309274 Problem Gastroparesis K31.84 Active 651088131 Problem Stress incontinence of urine N39.3 Active 53169137 Problem Osteoporosis M81.0 Active 35151404 Problem Controlled type 2 diabetes mellitus without complication, without long -term current use of insulin E11.9 Active 269944917 Problem Barretts esophagus K22.70 Active 941494402 Problem Chronic fatigue R53.82 Active 83068640 Problem History of common bile duct surgery Z98.89 Active 617949455 Problem Bipolar affective disorder, currently depressed, moderate F31.32 Active 232503467 Problem Generalized anxiety disorder F41.1 Active 278731805 Problem Gastroesophageal reflux disease, esophagitis presence not specified K21.9 Active 014591922 Problem Coronary artery disease involving [place] coronary artery of [place] heart with other form of angina pectoris I25.118 Active 3564414989053 Problem Postconcussion syndrome F07.81 Active 88111020 Problem Chronic pain syndrome G89.4 Active 660709764 Problem Type 2 diabetes mellitus with diabetic peripheral angiopathy without gangrene E11.51 Active 672155113 Problem Paroxysmal atrial fibrillation I48.0 Active 433887433 Problem Unspecified atherosclerosis of [place] arteries of extremities, unspecified extremity I70.209 Active 110202033130724 Problem Acute exacerbation of chronic obstructive pulmonary disease (COPD) J44.1 Active 447566510 Problem Crohn''s disease without complication, unspecified gastrointestinal tract location K50.90 Active 22243696 ALLERGIES No Information ENCOUNTERS Encounter Location Date Diagnosis [facility] [address] [facility] [id number], [place] [address] Feb, [facility] [address] [facility] [id number], [place] [address] Dec, [facility] [address] [facility] [id number], [place] [address] Dec, High risk medication use Z79.899 [facility] [address], [place] [address] 25 Dec, 2017 [facility] [id number] [place] [address] 23583- 8658 24 Dec, 2017 [facility] [address], [place] [address] 5287 19 Dec, 2017 [facility] [id number] [place] [address] 99032- 4902 19 Dec, 2017 [facility] [id number] [place] [address] 38572- 3597 18 Dec, 2017 [facility] [id number] [place] [address] 39368- 2679 14 Dec, 2017 [facility] [id number] [place] [address] 78729- 0100 14 Dec, 2017 [facility] [id number] [place] [address] 76088- 3374 13 Dec, 2017 [facility] [address], [place] [address] 4766 Dec, Type 2 diabetes mellitus with diabetic peripheral angiopathy without gangrene E11.51 ; Contusion of face, initial encounter S00.83XA and Bronchitis J40 [facility] [address], [place] [address] 0509 Dec, [facility] [id number] [place] [address] 27813- 5461 06 Dec, 2017 [facility] [address], [place] [address] 2692 Nov, [facility] [address], [place] [address] 1759 Nov, Onychomycosis B35.1 ; Hammertoe of left foot M20.42 ; Hammertoe of right foot M20.41 and Type 2 diabetes mellitus with diabetic neuropathy, without long-term current use of insulin E11.40 [facility] [id number] [place] [address] 44623- 7651 Nov, [facility] [id number] [place] [address] 42345- 8583 Nov, Bronchitis J40 [facility] [id number] [place] [address] 32841- 4030 Oct, [facility] [id number] [place] [address] 75559- 4726 Oct, Bipolar affective disorder, currently depressed, moderate F31.32 ; Vascular dementia without behavioral disturbance F01.50 and Generalized anxiety disorder F41.1 [facility] [id number] [place] [address] 08078- 9265 Oct, [facility] [id number] [place] [address] 71306- 4679 Oct, [facility] [id number] [place] [address] 18974- 5897 Oct, Edema of both legs R60.0 [facility] [id number] [place] [address] 10170- 8022 Oct, [facility] [id number] [place] [address] 45477- 3469 Sep, [facility] [id number] [place] [address] 05459- 8617 Sep, [facility] [id number] [place] [address] 77505- 1664 Sep, [facility] [id number] [place] [address] 15217- 2598 18 Sep, 2017 Encounter for well woman exam with routine gynecological exam Z01.419 ; Screening for STDs (sexually transmitted diseases) Z11.3 ; Screening breast examination Z12.31 and Overweight (BMI 25.0-29.9) E66.3 [facility] [id number] [place] [address] 22420- 6299 Sep, [facility] [address] 8949 Sep, [facility] [id number] [place] [address] 129485- 8639 Sep, [facility] [id number] [place] [address] 127985- 4210 August, [facility] [id number] [place] [address] 59111- 3836 August, [facility] [id number] [place] [address] 82099- 5694 August, Type 2 diabetes mellitus with diabetic neuropathy, without long-term current use of insulin E11.40 and Sprain of right ankle, unspecified ligament, initial encounter S93.401A [facility] [id number] [place] [address] 66446- 5064 August, [facility] [address] [id number] [address] 7626 August, [facility] [id number] [place] [address] 78499- 3939 August, [facility] [address], [place] [address] 1680 August, Gastroesophageal reflux disease, esophagitis presence not specified K21.9 [facility] [address], [place] [address]- 6029 August, [facility] [address] 95[address] August, [facility] [address] 8056 August, [facility] [address] 8[address] August, Type 2 diabetes mellitus with diabetic neuropathy, without long-term current use of insulin E11.40 and Elevated liver enzymes R74.8 [facility] [id number] [place] [address] 71799- 3286 Jul, [facility] [address] 58160- 2411 Jul, Cough R05 [facility] [id number] [place] [address] 75050- 2288 Jul, [facility] [address] 30508- 3055 Jul, [facility] [id number] [place] [address] 54935- 2702 Jul, Bipolar affective disorder, currently depressed, moderate F31.32 ; Vascular dementia without behavioral disturbance F01.50 and Generalized anxiety disorder F41.1 [facility] [id number] [place] [address] 70259- 7025 Jul, [facility] [id number] [place] [address] 03318- 0941 Jul, Type 2 diabetes mellitus with diabetic neuropathy, without long-term current use of insulin E11.40 and Elevated liver enzymes R74.8 [facility] [id number] [place] [address] 08110- 4468 Jul, [facility] [id number] [place] [address] 63812- 9840 Jul, [facility] [id number] [place] [address] 16994- 3802 17 Jul, 2017 [facility] [id number] [place] [address] 29257- 6448 Jul, Post-menopausal Z78.0 [facility] [id number] [place] [address] 16633- 5855 Jul, Stress incontinence of urine N39.3 [facility] [id number] [place] [address] 12512- 7399 Jul, [facility] [id number] [place] [address] 52543- 6295 Jul, [facility] [id number] [place] [address] 72007- 7672 Jul, Stress incontinence of urine N39.3 and Cough R05 [facility] [id number] [place] [address] 79920- 4467 Jul, [facility] [id number] [place] [address] 61389- 0635 Jul, [facility] [id number] [place] [address] 42309- 0360 Jul, [facility] [id number] [place] [address] 60470- 7097 Jul, Gastroesophageal reflux disease, esophagitis presence not specified K21.9 [facility] [id number] [place] [address] 15321- 6852 Jun, Diabetic polyneuropathy associated with type 2 diabetes mellitus E11.42 [facility] [id number] [place] [address] 38648- 5350 Jun, Diabetic polyneuropathy associated with type 2 diabetes mellitus E11.42 ; Coronary artery disease involving [place] coronary artery of [place] heart with other form of angina pectoris I25.118 and Paroxysmal atrial fibrillation I48.0 [facility] [id number] [place] [address] 54149- 6369 Jun, [facility] [id number] [place] [address] 23227- 2242 Jun, [facility] [id number] [place] [address] 92956- 8432 Jun, Gastroenteritis K52.9 [facility] [id number] [place] [address] 35367- 2067 Jun, Gastroenteritis K52.9 [facility] [id number] [place] [address] 08321- 5822 Jun, [facility] [id number] [place] [address] 45930- 0151 Jun, [facility] [id number] [place] [address] 27357- 1672 Jun, Sprain of right ankle, unspecified ligament, initial encounter S93.401A ; Type 2 diabetes mellitus with diabetic neuropathy, without long-term current use of insulin E11.40 ; Atherosclerosis of [place] artery of both lower extremities with intermittent claudication I70.213 ; Atherosclerotic heart disease of [place]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 I25.118 ; Chronic atrial fibrillation I48.2 and Crohn''s disease without complication, unspecified gastrointestinal tract location K50.90 [facility] [id number] [place] [address] 48391 -2694 17 Jun, 2017 Cough R05 and Chronic obstructive pulmonary disease with acute lower respiratory infection J44.0 [facility] [id number] [place] [address] 88342- 4080 16 Jun, 2017 [facility] [id number] [place] [address] 66975- 9634 15 Jun, 2017 Coughing R05 ; Unspecified atherosclerosis of [place] arteries of extremities, unspecified extremity I70.209 ; Type 2 diabetes mellitus with diabetic peripheral angiopathy without gangrene E11.51 ; Crohn''s disease without complication, unspecified gastrointestinal tract location K50.90 ; Other chronic pancreatitis K86.1 and Chronic atrial fibrillation I48.2 [facility] [id number] [place] [address] 67934 -6007 Jun, [facility] [id number] [place] [address] 94027- 2661 Jun, Bipolar affective disorder, currently depressed, moderate F31.32 ; Vascular dementia without behavioral disturbance F01.50 and Generalized anxiety disorder F41.1 [facility] [address] [place] [address] 31495- 0319 May, Generalized anxiety disorder F41.1 [facility] [id number] [place] [address] 74685- 6166 May, [facility] [id number] [place] [address] 30139- 9343 May, [facility] [id number] [place] [address] 06432- 5040 May, Coughing R05 [facility] [address] 33247- 2698 May, [facility] [address] 06203- 6357 May, Bipolar affective disorder, currently depressed, moderate F31.32 ; Vascular dementia without behavioral disturbance F01.50 and Generalized anxiety disorder F41.1 [facility] [address] 28157- 0257 Apr, Generalized anxiety disorder F41.1 [facility] [address] 25434- 6713 Apr, [facility] [id number] [place] [address] 80578- 5955 Apr, Vascular dementia without behavioral disturbance F01.50 ; Generalized anxiety disorder F41.1 and Bipolar affective disorder, currently depressed, moderate F31.32 [facility] [id number] [place] [address] 59221- 5957 Apr, Generalized anxiety disorder F41.1 [facility] [id number] [place] [address] 91436 -5990 Apr, Cough R05 and Acute exacerbation of chronic obstructive pulmonary disease (COPD) J44.1 [facility] [address] 48805- 6180 Apr, [facility] [id number] [place] [address] 04348 -5989 Mar, Cough R05 and Cigarette nicotine dependence without complication F17.210 [facility] [address] 85198- 3970 Mar, [facility] [id number] [place] [address] 44794- 1826 Feb, Generalized anxiety disorder F41.1 ; Major depressive disorder, recurrent episode, moderate F33.1 ; Vascular dementia without behavioral disturbance F01.50 and Unspecified psychosis F29 [facility] [id number] [place] [address] 37883- 8611 Feb, [facility] [id number] [place] [address] 36968- 0486 Feb, [facility] [id number] [place] [address] 45856- 7048 Feb, Generalized anxiety disorder F41.1 [facility] [id number] [place] [address] 47082- 1916 Feb, Generalized anxiety disorder F41.1 [facility] [id number] [place] [address] 29350- 8672 Feb, Dizziness R42 ; Chronic fatigue R53.82 ; Postconcussion syndrome F07.81 ; Fall, initial encounter W19.XXXA and Disorientation R41.0 [facility] [id number] [place] [address] 81693- 2829 Feb, Postconcussion syndrome F07.81 ; Injury of head, initial encounter S09.90XA ; Fall, initial encounter W19.XXXA ; Disorientation R41.0 and Acute cystitis with hematuria N30.01 [facility] [address] [place] [address] 34440- 4707 Jan, Gastroesophageal reflux disease, esophagitis presence not specified K21.9 ; Post-menopausal Z78.0 and Migraine without aura and without status migrainosus, not intractable G43.009 [facility] [id number] [place] [address] 07974- 9819 Jan, [facility] [id number] [place] [address] 33609- 7094 Jan, Generalized anxiety disorder F41.1 ; Major depressive disorder, recurrent episode, moderate F33.1 ; Vascular dementia without behavioral disturbance F01.50 and Unspecified psychosis F29 [facility] [id number] [place] [address] 66850- 0490 Jan, Pneumonia of left lower lobe due to infectious organism J18.1 [facility] [id number] [place] [address] 61184- 7522 Jan, Migraine without aura and with status migrainosus, not intractable G43.001 [facility] [id number] [place] [address] 94902 -7533 Jan, Migraine without aura and without status migrainosus, not intractable G43.009 [facility] [id number] [place] [address] 45447- 7413 Dec, Hematoma T14.8 [facility] [place] [address] 09455- 4032 Dec, [facility] [id number] [place] [address] 50333 -3972 Nov, Fatigue, unspecified type R53.83 [facility] [id number] [place] [address] 00385- 6633 Nov, Scabies B86 and Coronary artery disease involving [place] coronary artery of [place] heart with other form of angina pectoris I25.118 [facility] [id number] [place] [address] 42190- 1179 Nov, [facility] [id number] [place] [address] 22384- 2835 Nov, [facility] [address] 10694- 9772 Oct, [facility] [id number] [place] [address] 91497- 9895 Oct, Generalized anxiety disorder F41.1 and Major depressive disorder, recurrent episode, moderate F33.1 [facility] [address] [address]- 2463 19 Oct, 2016 Cramp of both lower extremities R25.2 [facility] [id number] [place] [address] 11894- 8686 Oct, Leg cramps R25.2 [facility] [id number] [place] [address] 06170- 6018 Oct, Chronic pain syndrome G89.4 [facility] [address] [place] [address] 75031- 9772 Oct, [facility] [id number] [place] [address] 50018- 3477 Oct, [facility] [id number] [place] [address] 04626- 2691 Oct, Routine gynecological examination Z01.419 and Screening for breast cancer Z12.31 [facility] [id number] [place] [address] 15504- 3040 Sep, Diarrhea R19.7 [facility] [id number] [place] [address] 73292- 0152 Sep, Back pain M54.9 [facility] [id number] [place] [address] 87784- 9063 Sep, [facility] [id number] [place] [address] 80684- 9723 Sep, [facility] [id number] [place] [address] 74086 -1535 August, Xeroderma Q80.9 [facility] [id number] [place] [address] 63482- 6652 August, Dementia without behavioral disturbance, unspecified dementia type F03.90 [facility] [id number] [place] [address] August, Chronic pain syndrome G89.4 [place] [address] [place] [id number] [place] [phone] August, [place] [address] [address] August, Hyperlipidemia E78.5 ; Other fatigue R53.83 and Other specified hypotension I95.89 [facility] [address] [address] August, Dysuria R30.0 ; Other fatigue R53.83 and Other specified hypotension I95.89 [place] [address] [address] August, [place] [address] [address] Jul, Pain in left knee M25.562 and Gastroenteritis K52.9 [place] [address] [address] Jul, [place] [address] [address] Jul, Diarrhea R19.7 [facility] [place] [address] [address] Jul, Spider bite, accidental or unintentional, initial encounter T63.301A [place] [address] [address] Jul, Primary osteoarthritis of right knee M17.11 and Arthritis M19.90 [place] [address] [place] [id number] [place] [address] Jul, Generalized anxiety disorder F41.1 and Major depressive disorder, recurrent episode, moderate F33.1 [place] [address] [address] 07 Jul, 2016 Type 2 diabetes mellitus with diabetic polyneuropathy E11.42 and Temporal headache R51 [place] [address] [address]- 7766 Jul, Back pain M54.9 [facility] [address] 15237- 9428 Jul, [facility] [address] 47025- 2169 Jul, [facility] [address] 75454- 7311 30 Jun, 2016 Nausea R11.0 [facility] [address] 28295 -8701 Jun, Acute suppurative otitis media of both ears without spontaneous rupture of tympanic membranes, recurrence not specified H66.003 and COPD exacerbation J44.1 [facility] [address] 95429- 5278 Jun, Generalized anxiety disorder F41.1 [place] [address] 50648- 9562 16 Jun, 2016 [facility] [address] 48615 -2312 Jun, [facility] [address] 61808 -8781 Jun, Shortness of breath R06.02 and COPD exacerbation J44.1 [place] [address] 30566- 5690 10 Jun, 2016 Eczema, unspecified type L30.9 [facility] [address] 88733- 2776 09 Jun, 2016 [facility] [address] 23700- 3631 24 May, 2016 [place] [address] 88646- 1251 May, Muscle cramping R25.2 [place] [address] [place] [address] 1058 May, [facility] [id number] [place] [address] 38689- 4866 Apr, Diarrhea R19.7 [facility] [id number] [place] [address] 65476- 5911 Apr, [facility] [address] 98237- 4514 Apr, Chronic pain syndrome G89.4 [place] [address] 71778- 8389 Apr, Cramp of both lower extremities R25.2 and Vascular dementia without behavioral disturbance F01.50 [facility] [facility] [id number] [place] [address] 08104- 7702 Apr, Type 2 diabetes mellitus with diabetic polyneuropathy E11.42 and Cigarette nicotine dependence without complication F17.210 [place] [id number] [place] [address] 27457- 1640 Mar, Generalized anxiety disorder F41.1 [place] [address] 86414- 6673 Feb, Generalized anxiety disorder F41.1 and Major depressive disorder, recurrent episode, moderate F33.1 [place] [id number] [place] [address] 84847- 0473 Feb, [facility] [id number] [place] [address] 73310 -0915 Feb, Dysuria R30.0 and Acute cystitis with hematuria N30.01 [facility] [address] 70954- 8420 Jan, [facility] [id number] [place] [address] 53817- 3793 Jan, [facility] [address] 42645- 2936 Jan, [facility] [id number] [place] [address] 31191- 6743 Jan, [facility] [id number] [place] [address] 11042 -5096 10 Jan, 2016 Wasp sting, accidental or unintentional, initial encounter T63.461A [facility] [id number] [place] [address] 36268- 8221 06 Jan, 2016 Encounter for immunization Z23 [facility] [address] 87751- 6255 Jan, [facility] [address] 38767- 9056 Jan, [facility] [id number] [place] [address] 38330- 1448 28 Dec, 2015 Generalized anxiety disorder F41.1 and Major depressive disorder, recurrent episode, moderate F33.1 [facility] [id number] [place] [address] 35903- 2797 21 Dec, 2015 Routine gynecological examination Z01.419 ; Postmenopausal Z78.0 ; Screening breast examination Z12.39 ; Osteopenia M85.80 and Breast cancer screening Z12.39 [facility] [id number] [place] [address] 86514- 7636 20 Dec, 2015 [facility] [id number] [place] [address] 07074- 8676 19 Dec, 2015 [facility] [id number] [place] [address] 92383- 8650 16 Dec, 2015 [facility] [id number] [place] [address] 38674- 4347 16 Dec, 2015 [facility] [id number] [place] [address] 73613- 5538 14 Dec, 2015 [facility] [id number] [place] [address] 37137- 9346 06 Dec, 2015 [facility] [address] [address]- 5053 Nov, [facility] [address] [place] [address]7634 Nov, Cough R05 ; Other viral agents as the cause of diseases classified elsewhere B97.89 and Acute upper respiratory infection, unspecified J06.9 [facility] [address] [place] [address]- 4523 Nov, [facility] [id number] [address]- 5405 Nov, [facility] [address] [place] [address]- 2730 Nov, [facility] [id number] [place] [address]- 2488 Nov, [facility] [id number] [place] [address]- 5122 Nov, [facility] [address] [address]- 3557 Oct, [facility] [address] [address]- 8910 Oct, [facility] [address], [place] [address]- 6299 Oct, [facility] [address] [address]- 3888 Oct, Chronic pain syndrome G89.4 [facility] [address] [address]- 2331 Sep, Generalized anxiety disorder F41.1 and Major depressive disorder, recurrent episode, moderate F33.1 [facility] [address] [address]- 0752 Sep, [facility] [address] [address]- 6277 Sep, [facility] [id number] [place] [address] 66411- 2076 14 Sep, 2015 Generalized anxiety disorder F41.1 [facility] [id number] [place] [address] 86895- 0854 13 Sep, 2015 Cramp of both lower extremities R25.2 and Cervicalgia M54.2 [place] [id number] [place] [address] 80683- 8963 06 Sep, 2015 Generalized anxiety disorder F41.1 [facility] [id number] [place] [address] 98810- 4088 Sep, [facility] [id number] [place] [address] 27539 -0520 August, Rash R21 ; Itching L29.9 and Allergic response, subsequent encounter T78.40XD [place] [id number] [place] [address] 48208- 5450 August, Primary insomnia F51.01 [facility] [id number] [place] [address] 15025 -1478 August, Rash R21 ; Itching L29.9 and Allergic response, initial encounter T78.40XA [place] [id number] [place] [address] 98739- 9323 August, [place] [id number] [place] [address] 52629- 2493 August, Cramp of both lower extremities R25.2 [place] [id number] [place] [address] 27488- 7970 August, Back pain M54.9 [place] [id number] [place] [address] 46638- 5049 August, [facility] [id number] [place] [address] 13549- 3006 August, [facility] [address] [place] [address] -7965 August, Cramp of both lower extremities R25.2 [facility] [id number] [place] [address] 10309- 6707 August, [facility] [id number] [place] [address] 80016- 1087 August, Syncope R55 ; Paroxysmal atrial fibrillation I48.0 ; Dementia without behavioral disturbance, unspecified dementia type F03.90 and Chronic pain syndrome G89.4 [facility] [id number] [place] [address] 86717- 0026 August, Type 2 diabetes mellitus with diabetic polyneuropathy E11.42 and Syncope R55 [facility] [id number] [place] [address] 78361- 6023 Jul, [facility] [id number] [place] [address] 86341- 6539 Jul, [facility] [id number] [place] [address] 15851- 8332 Jul, [facility] [id number] [place] [address] 34033- 8456 Jul, [facility] [id number] [place] [address] 96066- 2533 Jul, [facility] [id number] [place] [address] 80455- 6353 Jul, UTI (urinary tract infection) N39.0 [facility] [address] [address]- 0814 Jul, [facility] [id number] [place] [address] 87900- 2065 Jul, Major depressive disorder, recurrent episode, moderate F33.1 and Generalized anxiety disorder F41.1 [facility] [address], [place] [address]- 2771 Jul, Generalized anxiety disorder F41.1 [place] [address], [place] [address]- 1750 14 Jul, 2015 Diarrhea R19.7 [facility] [address] [address]- 3876 14 Jul, 2015 [facility] [address], [place] [address]- 7808 Jun, [facility] [id number] [place] [address] 66544 2546 Jun, Eczema L30.9 [facility] [id number] [place] [address] 61980- 3726 Jun, [facility] [id number] [place] [address] 98685- 2396 Jun, COPD (chronic obstructive pulmonary disease) J44.9 [facility] [id number] [place] [address] 33045- 7390 Jun, [facility] [address], [place] [address]- 6938 Jun, Major depressive disorder, recurrent episode, moderate F33.1 and Generalized anxiety disorder F41.1 [facility] [address], [place] [address]- 3729 May, [facility] [address], [place] [address]- 8427 May, UTI (urinary tract infection) N39.0 [facility] [address], [place] [address]- 0060 May, [facility] [address], [place] [address]- 7875 May, [facility] [address], [place] [address]- 6287 May, [facility] [address], [place] [address]- 6918 May, [facility] [address], [place] [address]- 5230 Apr, Major depressive disorder, recurrent episode, moderate F33.1 and Generalized anxiety disorder F41.1 [facility] [address], [place] [address]- 9941 Apr, COPD (chronic obstructive pulmonary disease) J44.9 [facility] [id number] [place] [address] 09585- 6417 Apr, [facility] [id number] [place] [address] 29784- 1548 Apr, Atrial flutter I48.92 [facility] [id number] [place] [address] 04837- 5700 Apr, [facility] [id number] [place] [address] 80581- 8254 Apr, [facility] [id number] [place] [address] 99659- 0726 Mar, [facility] [id number] [place] [address] 82497- 4780 Mar, [facility] [id number] [address]- 5493 Mar, [facility] [address], [place] [address]- 9135 Mar, Hyperlipidemia E78.5 ; Type 2 diabetes mellitus with diabetic polyneuropathy E11.42 ; Major depressive disorder, recurrent episode, moderate F33.1 and Chronic pain syndrome G89.4 [facility] [address], [place] [address]- 5551 Mar, [facility] [address] [address]- 8669 Mar, [facility] [address], [place] [address]- 6105 Mar, [facility] [address], [place] [address]- 6337 Mar, [facility] [id number] [place] [address] 88309- 8158 Feb, COPD (chronic obstructive pulmonary disease) J44.9 and Back pain M54.9 [facility] [id number] [place] [address] 89922- 1989 Feb, [facility] [id number] [place] [address] 04146- 6878 Feb, [facility] [id number] [place] [address] 23776- 1740 Feb, [facility] [id number] [place] [address] 24078- 1139 Feb, [facility] [id number] [place] [address] 66887- 1421 Feb, [facility] [id number] [place] [address] 62898- 2783 Feb, [facility] [id number] [place] [address] 84958- 4140 Feb, [facility] [id number] [place] [address] 17668- 6393 Feb, [facility] [id number] [place] [address] 49615- 1717 Feb, Diabetes E11.9 ; Back pain M54.9 and COPD (chronic obstructive pulmonary disease) J44.9 [facility] [address], [place] [address]- 1971 Jan, [facility] [id number] [place] [address] 91474- 5699 Jan, Major depression, recurrent F33.9 and Generalized anxiety disorder F41.1 [facility] [id number] [place] [address] 65295- 3961 Jan, Chronic pain G89.29 [facility] [address], [place] [address]- 1157 Jan, [facility] [id number] [place] [address] 90208- 2867 Jan, [facility] [id number] [place] [address] 08743- 7351 Jan, [facility] [id number] [place] [address] 39079- 5425 Jan, [facility] [id number] [place] [address] 58544- 9994 Jan, Nicotine dependence F17.200 [facility] [id number] [place] [address] 37134- 2855 Jan, Nicotine dependence F17.200 and Back pain M54.9 [facility] [id number] [place] [address] 03446- 6548 Jan, [facility] [id number] [place] [address] 26881- 6825 28 Dec, 2014 [facility] [id number] [place] [address] 63988- 4704 25 Dec, 2014 Anxiety, generalized 300.02 and Major depression, recurrent 296.30 [facility] [id number] [place] [address] 86386- 9702 24 Dec, 2014 [facility] [id number] [place] [address] 11314- 7995 21 Sep, 2014 [facility] [id number] [place] [address] 40497- 4905 17 Dec, 2014 [facility] [id number] [place] [address] 85905- 7868 15 Dec, 2014 [facility] [id number] [place] [address] 75738- 2766 14 Dec, 2014 [facility] [address] [place] [address]- 7247 11 Dec, 2014 [facility] [address], [place] [address]- 5177 Dec, [facility] [id number] [place] [address] 68313- 4799 08 Dec, 2014 Skin tear 879.8 [facility] [id number] [place] [address] 36360- 8216 Dec, Routine gynecological examination V72.31 ; Breast cancer screening V76.10 and Family history of breast cancer in first degree relative V16.3 [facility] [id number] [place] [address] 35698- 7121 Dec, [facility] [id number] [place] [address] 89267- 1692 Dec, [facility] [id number] [place] [address] 39440- 3101 Nov, [facility] [id number] [place] [address] 90734- 2533 Nov, [facility] [id number] [place] [address] 18558- 8790 Nov, Poor balance 781.99 and Vascular dementia, uncomplicated 290.40 [facility] [id number] [place] [address] 50873- 4542 Nov, [facility] [id number] [place] [address] 34871- 8012 Nov, Major depression, recurrent 296.30 and Anxiety, generalized 300.02 [facility] [id number] [place] [address] 69220- 2317 Nov, [facility] [id number] [place] [address] 26835- 0040 Nov, [facility] [id number] [place] [address] 35523- 6372 Nov, [facility] [address], [place] [address]- 8524 Nov, [facility] [id number] [place] [address] 20788- 8760 Nov, Vascular dementia, uncomplicated 290.40 and Lumbago 724.2 [facility] [address] [address]- 5874 Nov, [facility] [id number] [place] [address] 38779- 1774 Nov, [facility] [id number] [place] [address] 58596- 6922 Nov, [facility] [id number] [place] [address] 31580- 1156 Oct, [facility] [id number] [place] [address] 50934- 0665 Oct, [facility] [id number] [address] Oct, [facility] [id number] [place] [address]64- 8740 Oct, COPD (chronic obstructive pulmonary disease) 496 and Hyperlipidemia 272.4 [facility] [address] [address] Oct, Major depression, recurrent 296.30 and Anxiety, generalized 300.02 [facility] [address] [address] Oct, [facility] [address] [address] Oct, [facility] [address], [place] [address] Oct, [facility] [id number] [address] Sep, Lumbago 724.2 and Anxiety state, unspecified 300.00 [facility] [address] [address] Sep, [facility] [id number] [place] [address]10- 7767 Sep, [facility] [id number] [address] August, [facility] [id number] [place] [address]- 7249 August, Major depression, recurrent 296.30 ; Anxiety, generalized 300.02 and No condition on Taylor II V71.09 [facility] [id number] [place] [address] 06882- 8064 August, [facility] [id number] [place] [address]194- 6913 August, [facility] [id number] [place] [address]70- 0069 Jul, [facility] [id number] [address] Jul, [facility] [id number] [place] [address] 35875- 3582 Jul, [facility] [address], [place] [address] Jun, [facility] [address], [place] [address] Jun, [facility] [address] [address] Jun, [facility] [place] [id number] [place] [address], [place] [address]- [address] Jun, [facility] [address], [place] [address] 47[address] Jun, [facility] [id number] [place] [address] 74615- 7316 23 Jun, 2014 [facility] [place] [facility] [address] [id number] [place] [address]- 4296 23 Jun, 2014 [facility] [place] [facility] [address] [id number] [place] [address]- 2363 17 Jun, 2014 [facility] [place] [facility] [address] [id number] [place] [address]- 5202 13 Jun, 2014 [facility] [place] [facility] [address] [id number] [place] [address]- 4815 13 Jun, 2014 [facility] [place] [facility] [address] [id number] [place] [address]- 6144 10 Jun, 2014 [facility] [place] [facility] [address] [id number] [place] [address]- 5576 10 Jun, 2014 [facility] [place] [facility] [address] [facility] [id number] [place] [address]- 5343 Jun, [facility] [place] [facility] [address] [id number] [place] [address]- 3222 Jun, [facility] [place] [facility] [address] [id number] [place] [address]- 6232 Jun, [facility] [place] [facility] [address] [id number] [place] [address]- 2967 Jun, [facility] [place] [facility] [address] [id number] [place] [address]- 7210 May, 2014 [facility] [place] [facility] [address] [id number] [place] [address]- 1709 May, 2014 [facility] [place] [facility] [address] [id number] [place] [address]- 7274 May, 2014 [facility] [place] [facility] [address] [id number] [place] [address]- 1590 May, 2014 [facility] [place] [facility] [address] [facility] [id number] [place] [address]- 4171 May, 2014 [facility] [place] [facility] [address] [id number] [place] [address]- 8326 May, 2014 [facility] [place] [facility] [address] [id number] [place] [address] May, 2014 [facility] [place] [facility] [address] [id number] [place] [address] 2546 May, 2014 [facility] [place] [facility] [address] [id number] [place] [address] 4266 May, 2014 [facility] [place] [facility] [address] [id number] [place] [address] 9252 May, 2014 [facility] [place] [facility] [address] [id number] [place] [address] 8116 May, 2014 [facility] [place] [facility] [address] [facility] [id number] [place] [address]- 1569 May, 2014 [facility] [place] [facility] [address] [id number] [place] [address] 7588 May, 2014 [facility] [place] [facility] [address] [id number] [place] [address]- 3030 May, 2014 [facility] [place] [facility] [address] [facility] [id number] [place] [address]- 4680 Apr, [facility] [place] [facility] [address] [id number] [place] [address] 2047 Apr, [facility] [place] [facility] [address] [id number] [place] [address]- 4525 Apr, [facility] [place] [facility] [address] [id number] [place] [address] 2547 Apr, [facility] [place] [facility] [address] [id number] [place] [address]- 2541 Apr, [facility] [place] [facility] [address] [id number] [place] [address]- 7932 Apr, [facility] [place] [facility] [address] [id number] [place] [address] 2799 Apr, [facility] [address] [id number] [place] [address]- 3831 Apr, [facility] [place] [facility] [address] [id number] [place] [address]- 7341 Apr, [facility] [place] [facility] [address] [id number] [place] [address] 8161 Apr, [facility] [place] [facility] [address] [id number] [place] [address]- 0992 Apr, [facility] [place] [facility] [address] [id number] [place] [address]- 7136 Apr, [facility] [place] [facility] [address] [id number] [place] [address] 8986 Mar, [facility] [address] [id number] [place] [address] 2[address] 31 Mar, 2014 [facility] [place] [facility] [address] [id number] [place] [address]- 2521 30 Mar, 2014 [facility] [place] [facility] [address] [id number] [place] [address]- 8636 30 Mar, 2014 [facility] [place] [facility] [address] [id number] [place] [address]- 6780 29 Mar, 2014 [facility] [place] [facility] [address] [id number] [place] [address]- 3934 29 Mar, 2014 [facility] [place] [facility] [address] [id number] [place] [address]- 1468 19 Mar, 2014 [facility] [place] [facility] [address] [id number] [place] [address]- 5468 Mar, [facility] [place] [facility] [address] [id number] [place] [address]- 1791 15 Mar, 2014 [facility] [place] [facility] [address] [id number] [place] [address]- 2662 15 Mar, 2014 [facility] [place] [facility] [address] [id number] [place] [address] 1926 15 Mar, 2014 [facility] [place] [facility] [address] [id number] [place] [address]- 0166 Mar, [facility] [place] [facility] [address] [id number] [place] [address]- 1626 Mar, [facility] [place] [facility] [address] [id number] [place] [address]- 2086 Mar, [facility] [place] [facility] [address] [id number] [place] [address]- 9472 Mar, [facility] [place] [facility] [address] [id number] [place] [address] 1886 Mar, [facility] [place] [facility] [address] [id number] [place] [address]- 2407 Mar, [facility] [place] [facility] [address] [id number] [place] [address]- 2478 Mar, [facility] [place] [facility] [address] [id number] [place] [address]- 4867 Mar, [facility] [place] [facility] [address] [id number] [place] [address]- 6583 Mar, [facility] [place] [facility] [address] [id number] [place] [address]- 3153 Feb, [facility] [place] [facility] [address] [id number] [place] [address]- 3607 Feb, [facility] [place] [facility] [address] [id number] [place] [address]- 7358 Feb, [facility] [place] [facility] [address] [id number] [place] [address]- 8716 Feb, [facility] [place] [facility] [address] [id number] [place] [address]- 0933 Feb, [facility] [place] [facility] [address] [id number] [place] [address]- 6094 Feb, [facility] [place] [facility] [address] [id number] [place] [address]- 3038 Feb, [facility] [place] [facility] [address] [id number] [place] [address]- 2227 Feb, [facility] [place] [facility] [address] [id number] [place] [address]- 9851 Feb, [facility] [place] [facility] [address] [id number], [place] [address]- [address] Feb, [facility] [place] [facility] [address] [id number] [place] [address]- 4360 Feb, [facility] [place] [facility] [address] [id number], [place] [address]- 4067 Feb, [facility] [place] [facility] [address] [id number] [place] [address]- 8026 Feb, [facility] [place] [facility] [address] [id number], [place] [address] 4951 Feb, [facility] [place] [facility] [address] [id number], [place] [address]- 8071 Feb, [facility] [place] [facility] [address] [id number], [place] [address]- 9609 Feb, [facility] [place] [facility] [address] [id number], [place] [address]- 5417 Feb, [facility] [place] [facility] [address] [id number], [place] [address]- 49[address] Jan, [facility] [place] [facility] [address] [id number], [place] [address]- 3[address] Jan, [facility] [place] [facility] [address] [id number], [place] [address]- 2705 Jan, [facility] [place] [facility] [address] [id number], [place] [address]- 8994 Jan, [facility] [place] [facility] [address] [id number] [place] [address]- 5549 Jan, [facility] [place] [facility] [address] [id number] [place] [address]- 6137 Jan, [facility] [place] [facility] [address] [id number] [place] [address]- 1250 Jan, [facility] [place] [facility] [address] [id number] [place] [address]- 0733 Jan, [facility] [place] [facility] [address] [id number] [place] [address]- 0071 Jan, [facility] [place] [facility] [address] [id number] [place] [address]- 2088 Jan, [facility] [place] [facility] [address] [id number] [place] [address]- 3683 Jan, [facility] [place] [facility] [address] [id number] [place] [address]- 6971 Dec, [facility] [place] [facility] [address] [id number] [place] [address]- 0272 Dec, [facility] [place] [facility] [address] [id number] [place] [address]- 5129 Nov, [facility] [place] [facility] [address] [id number] [place] [address]- 3032 Nov, [facility] [place] [facility] [address] [id number] [place] [address]- 9820 Nov, [facility] [place] [facility] [address] [id number] [place] [address]- 1933 Nov, [facility] [place] [facility] [address] [id number] [place] [address]- 1168 Nov, [facility] [place] [facility] [address] [id number] [place] [address]- 3447 Nov, [facility] [place] [facility] [address] [id number] [place] [address]- 3260 Nov, [facility] [place] [facility] [address] [id number] [place] [address]- 6851 Oct, 2013 [facility] [place] [facility] [address] [id number] [place] [address]- 4672 Oct, [facility] [place] [facility] [address] [id number] [place] [address]- 0510 Oct, [facility] [place] [facility] [address] [id number] [place] [address]- 3621 Oct, [facility] [place] [facility] [address] [id number] [place] [address]- 1337 Sep, [facility] [place] [facility] [address] [id number] [place] [address]- 9400 Sep, [facility] [place] [facility] [address] [id number] [place] [address]- 6713 Sep, [facility] [place] [facility] [address] [id number] [place] [address]- 2315 Sep, [facility] [place] [facility] [address] [id number] [place] [address]- 7569 Sep, [facility] [place] [facility] [address] [id number] [place] [address]- 6034 Sep, [facility] [place] [facility] [address] [id number] [place] [address]- 5309 Sep, [facility] [place] [facility] [address] [id number] [place] [address]- 5645 Sep, [facility] [place] [facility] [address] [id number] [place] [address]- 9583 Sep, [facility] [place] [facility] [address] [id number] [place] [address]- 0565 Sep, [facility] [place] [facility] [address] [id number] [place] [address]- 5848 05 Sep, 2013 [facility] [place] [facility] [address] [id number] [place] [address]- 3358 Sep, [facility] [place] [facility] [address] [id number] [place] [address]- 1058 Sep, [facility] [place] [facility] [address] [id number] [place] [address]- 8400 Sep, [facility] [place] [facility] [address] [id number] [place] [address]- 0869 August, [facility] [place] [facility] [address] [id number] [place] [address]- 6749 August, [facility] [place] [facility] [address] [id number] [place] [address]- 3204 August, [facility] [place] [facility] [address] [id number] [place] [address]- 7739 August, [facility] [place] [facility] [address] [id number] [place] [address]- 6768 August, [facility] [place] [facility] [address] [id number] [place] [address]- 1392 August, [facility] [place] [facility] [address] [id number] [place] [address]- 4595 August, [facility] [place] [facility] [address] [id number] [place] [address]- 3634 August, [facility] [place] [facility] [address] [id number] [place] [address]- 7179 August, [facility] [place] [facility] [address] [id number] [place] [address]- 8736 August, [facility] [place] [facility] [address] [id number] [place] [address]- 2285 August, [facility] [place] [facility] [address] [id number] [place] [address]- 8230 August, [facility] [place] [facility] [address] [id number] [place] [address]- 6605 August, [facility] [place] [facility] [address] [id number] [place] [address]- 0423 August, [facility] [address] [id number] [place] [address]- 8304 August, [facility] [place] [facility] [address] [id number] [place] [address]- 0066 August, [facility] [address] [id number] [place] [address]- 6847 August, [facility] [address] [id number] [place] [address]- 1809 August, [facility] [address] [id number] [place] [address]- 7444 August, [facility] [address] [id number] [place] [address]- 6250 Jul, [facility] [address] [id number] [place] [address]- 8280 Jul, [facility] [address] [id number] [place] [address]- 0530 Jul, [facility] [address] [id number] [place] [address]- 9278 Jul, [facility] [address] [id number] [place] [address]- 2378 Jun, [facility] [place] [facility] [address] [id number] [place] [address]- 1612 Jun, [facility] [place] [facility] [address] [id number] [place] [address]- 7574 Jun, [facility] [place] [facility] [address] [id number] [place] [address]- 7877 Jun, [facility] [place] [facility] [address] [id number] [place] [address]- 9496 Jun, [facility] [place] [facility] [address] [id number] [place] [id number] 9270 Jun, [facility] [place] [facility] [address] [id number] [place] [address]- 3569 14 Jun, 2013 [facility] [place] [facility] [address] [id number] [place] [address]- 8774 14 Jun, 2013 [facility] [place] [facility] [address] [id number] [place] [address]- 5742 Jun, [facility] [place] [facility] [address] [id number] [place] [address]- 0169 Jun, [facility] [place] [facility] [address] [id number] [place] [address]- 9158 May, [facility] [place] [facility] [address] [id number] [place] [address]- 7041 May, [facility] [place] [facility] [address] [facility] [id number] [place] [address]- 1868 May, [facility] [place] [facility] [address] [id number] [place] [address]- 6911 May, [facility] [place] [facility] [address] [facility] [id number] [place] [address]- 0185 May, [facility] [place] [facility] [address] [facility] [id number] [place] [address]- 3816 May, [facility] [place] [facility] [address] [facility] [id number] [place] [address]- 0716 May, [facility] [place] [facility] [address] [facility] [id number] [place] [address]- 9687 May, [facility] [place] [facility] [address] [id number] [place] [address]- 0495 May, [facility] [place] [facility] [address] [facility] [id number] [place] [address]- 3728 18 May, 2013 [facility] [place] [facility] [address] [facility] [id number] [place] [address]- 1962 May, [facility] [place] [facility] [address] [id number] [place] [address]- 7626 17 May, 2013 [facility] [place] [facility] [address] [id number] [place] [address]- 6117 May, [facility] [place] [facility] [address] [id number] [place] [address]- 9476 May, [facility] [place] [facility] [address] [id number] [place] [address]- 8298 May, [facility] [place] [facility] [address] [id number] [place] [address]- 9178 May, [facility] [place] [facility] [address] [id number] [place] [address]32 May, [facility] [place] [facility] [address] [id number] [place] [address]- 9864 Apr, [facility] [place] [facility] [address] [id number] [place] [address]- 2665 Apr, [facility] [place] [facility] [address] [id number] [place] [address]- 8285 Apr, [facility] [place] [facility] [address] [id number] [place] [address]- 9941 Apr, [facility] [place] [facility] [address] [facility] [id number] [place] [address]- 8217 Apr, [facility] [place] [facility] [address] [id number], [place] [address]- 8842 Apr, [facility] [place] [facility] [address] [id number] [place] [address]- 9556 Apr, [facility] [place] [facility] [address] [id number] [place] [address]- 2756 Mar, [facility] [place] [facility] [address] [id number] [place] [address]- 5176 Mar, [facility] [place] [facility] [address] [id number], [place] [address]- 1462 Mar, [facility] [address] [id number] [place] [address]- 9407 Mar, [facility] [place] [facility] [address] [id number] [place] [address]- 3207 Mar, [facility] [address] [id number] [place] [address]- 8701 Mar, [facility] [place] [facility] [address] [id number] [place] [address]- 6891 Mar, [facility] [address] [id number] [place] [address]- 7207 Mar, [facility] [address] [id number] [place] [address]- 4298 Mar, [facility] [address] [id number] [place] [address]- 6330 Mar, [facility] [place] [facility] [address] [id number] [place] [address]- 3849 Mar, [facility] [address] [id number] [place] [address]- 2503 Feb, [facility] [place] [facility] [address] [id number] [place] [address]- 6529 Feb, [facility] [address] [id number], [place] [address]- 7644 Feb, [facility] [place] [facility] [address] [id number], [place] [address]- 7558 Feb, [facility] [place] [facility] [address] [id number], [place] [address]- 6818 Feb, [facility] [place] [facility] [address] [id number], [place] [address]- 7425 Feb, [facility] [place] [facility] [address] [id number] [place] [address]- 0993 15 Feb, 2013 [facility] [place] [facility] [address] [id number] [place] [address]- 2023 14 Feb, 2013 [facility] [place] [facility] [address] [id number] [place] [address]- 4215 14 Feb, 2013 [facility] [place] [facility] [address] [id number] [place] [address]- 4448 13 Feb, 2013 [facility] [place] [facility] [address] [id number] [place] [address]- 7351 13 Feb, 2013 [facility] [place] [facility] [address] [id number] [place] [address]- 9672 12 Feb, 2013 [facility] [place] [facility] [address] [id number] [place] [address]- 7076 Feb, [facility] [place] [facility] [address] [id number] [place] [address]- 8042 Feb, [facility] [place] [facility] [address] [id number] [place] [address]- 0096 Feb, [facility] [place] [facility] [address] [id number] [place] [address]- 4727 Feb, [facility] [place] [facility] [address] [id number] [place] [address]- 5319 Jan, [facility] [place] [facility] [address] [id number] [place] [address]- 0065 Jan, [facility] [place] [facility] [address] [id number] [place] [address]- 4380 24 Jan, 2013 [facility] [place] [facility] [address] [id number] [place] [address]- 5963 Jan, [facility] [place] [facility] [address] [id number] [place] [address]- 0151 Jan, [facility] [place] [facility] [address] [id number] [place] [address]- 3044 Jan, [facility] [place] [facility] [address] [id number] [place] [address]- 1900 Jan, [facility] [place] [facility] [address] [id number] [place] [address]- 1771 Jan, [facility] [place] [facility] [address] [id number] [place] [address]- 3023 10 Jan, 2013 [facility] [place] [facility] [address] [id number] [place] [address]- 4303 27 Dec, 2012 [facility] [place] [facility] [address] [id number] [place] [address]- 8489 20 Dec, 2012 [facility] [place] [facility] [address] [id number] [place] [address]- 9826 Dec, [facility] [place] [facility] [address] [id number] [place] [address]- 3725 10 Dec, 2012 [facility] [place] [facility] [address] [id number] [place] [address]- 5472 04 Dec, 2012 [facility] [place] [facility] [address] [id number] [place] [address]- 4901 Dec, [facility] [place] [facility] [address] [id number] [place] [address]- 9103 Nov, [facility] [place] [facility] [address] [id number] [place] [address]- 4725 Nov, [facility] [place] [facility] [address] [id number] [place] [address]- 2385 Nov, [facility] [place] [facility] [address] [id number], [place] [address]- 3932 Nov, [facility] [place] [facility] [address] [id number] [place] [address]- 2389 Nov, [facility] [place] [facility] [address] [id number] [place] [address]- 29[address] Nov, [facility] [place] [facility] [address] [id number] [place] [address] Nov, [facility] [place] [facility] [address] [id number] [place] [address] 15 Nov, 2012 [facility] [place] [facility] [address] [id number] [place] [address] 14 Nov, 2012 [facility] [place] [facility] [address] [id number] [place] [address] Nov, [facility] [place] [facility] [address] [id number] [place] [address] Oct, [facility] [place] [facility] [address] [id number] [place] [address] Oct, [facility] [place] [facility] [address] [id number] [place] [address] Oct, [facility] [place] [facility] [address] [id number] [place] [address] Oct, [facility] [place] [facility] [address] [id number] [place] [address] Oct, [facility] [place] [facility] [address] [id number] [place] [address] Oct, [facility] [place] [facility] [address] [id number] [place] [address] Oct, [facility] [place] [facility] [address] [id number] [place] [address] Oct, [facility] [place] [facility] [address] [id number] [place] [address] Sep, [facility] [place] [facility] [address] [id number] [place] [address] Sep, [facility] [place] [facility] [address] [id number] [place] [address] Sep, [facility] [place] [facility] [address] [id number] [place] [address] Sep, [facility] [place] [facility] [address] [id number] [place] [address] Sep, [facility] [place] [facility] [address] [id number] [place] [address] Sep, [facility] [address] [id number] [place] [address] Sep, [facility] [address] [id number] [place] [address] Sep, [facility] [address] [id number] [place] [address] August, [facility] [address] [id number] [place] [address] August, [facility] [address] [id number] [place] [address] August, [facility] [address] [id number] [place] [address]- [address] August, [facility] [address] [id number] [place] [address] August, [facility] [address] [id number] [place] [address] Jul, [facility] [address] [id number] [place] [address] Jul, [facility] [address] [id number] [place] [address] Jul, [facility] [address] [id number] [place] [address] 4[address] Jul, [facility] [address] [id number] [place] [address] Jul, [facility] [place] [facility] [address] [id number] [place] [id number] Jun, [facility] [place] [facility] [address] [id number] [place] [address] Jun, [facility] [address] [id number] [place] [address] 15 Jun, 2012 [facility] [address] [id number] [place] [address]- [address] 14 Jun, 2012 [facility] [place] [facility] [address] [id number] [place] [address] 47[address] Jun, [facility] [place] [facility] [address] [id number] [place] [address] 28[address] Jun, [facility] [place] [facility] [address] [id number] [place] [address] 08 Jun, 2012 [facility] [place] [facility] [address] [id number] [place] [address]- [address] Jun, [facility] [place] [facility] [address] [id number] [place] [address]- [address] Jun, [facility] [place] [facility] [address] [id number] [place] [address] May, [facility] [place] [facility] [address] [id number] [place] [address]- 270[address] May, [facility] [place] [facility] [address] [id number] [place] [address]- [address] May, [facility] [place] [facility] [address] [id number] [place] [address]- [address] May, [facility] [place] [facility] [address] [id number], [place] [address] Apr, [facility] [place] [facility] [address] [id number] [place] [address]- [address] Apr, [facility] [place] [facility] [address] [id number] [place] [address]- [address] Apr, [facility] [place] [facility] [address] [id number] [place] [address]- 69[address] Apr, [facility] [place] [facility] [address] [id number] [place] [address]- [address]76 Apr, [facility] [place] [facility] [address] [id number] [place] [address]- [address]32 Apr, [facility] [place] [address] [id number] [place] [address] Apr, [facility] [place] [address] [id number] [place] [address] Mar, [facility] [address] [place] [id number] Mar, [facility] [place] [address] [id number] [place] [address] Mar, [facility] [place] [address] [id number] [place] [address] Mar, [facility] [place] [address] [id number] [place] [address] Mar, [facility] [place] [address] [id number] [place] [address] Mar, [facility] [place] [address] [address] [id number] [place] [address] Mar, [facility] [address] [id number] [place] [address] Mar, [facility] [place] [address] [id number] [place] [address] Mar, [facility] [place] [address] [id number] [place] [address] Mar, [facility] [place] [address] [id number] [place] [address] Mar, [facility] [place] [address] [id number] [place] [address] Mar, [facility] [place] [address] [id number] [place] [address]597 Mar, [facility] [place] [address] [id number] [place] [address] Mar, [facility] [place] [facility] [address] [id number] [place] [address] 78[address] Mar, [facility] [place] [facility] [address] [id number] [place] [address]- [address] Mar, [facility] [place] [facility] [address] [id number] [place] [address] Mar, [facility] [place] [facility] [address] [id number] [place] [address] 2496 Feb, [facility] [place] [facility] [address] [id number] [place] [address] 8[address] Feb, [facility] [place] [facility] [address] [id number] [place] [address] 5215 Feb, [facility] [place] [facility] [address] [id number] [place] [address]- [address] Feb, [facility] [place] [facility] [address] [id number] [place] [address]- 1792 Feb, [facility] [place] [facility] [address] [id number] [place] [address]- 7298 Feb, [facility] [place] [facility] [address] [id number] [place] [address]- 7[address] Feb, [facility] [place] [facility] [address] [id number] [place] [address]- 1445 Feb, [facility] [place] [facility] [address] [id number] [place] [address]- 6983 Feb, [facility] [place] [facility] [address] [id number] [place] [address]- 3040 Feb, [facility] [place] [facility] [address] [id number] [place] [address]- 1017 Feb, [facility] [place] [facility] [address] [id number] [place] [address]- 7924 Feb, [facility] [place] [facility] [address] [id number], [place] [address]- 46[address] Feb, [facility] [place] [facility] [address] [id number] [place] [address] Feb, [facility] [place] [facility] [address] [id number] [place] [address]- 8549 Feb, [facility] [place] [facility] [address] [facility] [id number] [place] [address]- 9051 Feb, [facility] [place] [facility] [address] [id number] [place] [address] Jan, [facility] [place] [facility] [address] [id number] [place] [address]- 2927 Jan, [facility] [place] [facility] [address] [id number] [place] [address]- 9910 Jan, [facility] [place] [facility] [address] [id number] [place] [address]- 0872 Jan, [facility] [place] [facility] [address] [id number], [place] [address] Jan, [facility] [place] [facility] [address] [id number], [place] [address] 8787 Jan, [facility] [place] [facility] [address] [id number], [place] [address]- 28[address] Jan, [facility] [place] [facility] [address] [id number], [place] [address] Jan, [facility] [place] [facility] [address] [id number], [place] [address]- 9549 Jan, [facility] [place] [facility] [address] [id number], [place] [address]- 3537 Jan, [facility] [place] [facility] [address] [facility] [id number], [place] [address]- 8669 Jan, [facility] [place] [facility] [address] [facility] [id number], [place] [address]- 1283 Jan, [facility] [place] [facility] [address] [id number] [place] [address]- 6627 11 Jan, 2012 [facility] [place] [facility] [address] [id number] [place] [address]- 8521 11 Jan, 2012 [facility] [place] [facility] [address] [id number] [place] [address]- 9316 08 Jan, 2012 [facility] [place] [facility] [address] [id number] [place] [address]- 6855 05 Jan, 2012 [facility] [place] [facility] [address] [id number] [place] [address]- 7433 04 Jan, 2012 [facility] [place] [facility] [address] [id number] [place] [address]- 7768 21 Dec, 2011 [facility] [place] [facility] [address] [id number] [place] [address]- 5913 20 Dec, 2011 [facility] [place] [facility] [address] [id number] [place] [address]- 3932 18 Dec, 2011 [facility] [place] [facility] [address] [id number] [place] [address]- 5514 18 Dec, 2011 [facility] [place] [facility] [address] [id number] [place] [address]- 2080 10 Dec, 2011 [facility] [place] [facility] [address] [facility] [id number] [place] [address]- 2544 10 Dec, 2011 [facility] [place] [facility] [address] [id number] [place] [address] 2546 10 Dec, 2011 [facility] [place] [facility] [address] [id number] [place] [address]- 2548 07 Dec, 2011 [facility] [place] [facility] [address] [id number] [place] [address]- 2485 30 Nov, 2011 [facility] [place] [facility] [address] [id number] [place] [address]- 2542 Nov, [facility] [place] [facility] [address] [id number] [place] [address]- 6483 Nov, [facility] [place] [facility] [address] [id number] [place] [address]- 5053 Nov, [facility] [place] [facility] [address] [id number] [place] [address]- 7828 Nov, [facility] [place] [facility] [address] [id number] [place] [address]- 2282 Nov, [facility] [place] [facility] [address] [id number] [place] [address]- 9298 Oct, [facility] [place] [facility] [address] [id number] [place] [address]- 1428 Oct, [facility] [place] [facility] [address] [id number] [place] [address]- 3611 Oct, [facility] [place] [facility] [address] [id number] [place] [address]- 4146 Oct, [facility] [place] [facility] [address] [id number] [place] [address]- 4811 Oct, [facility] [place] [facility] [address] [id number] [place] [address]- 4285 Oct, [facility] [place] [facility] [address] [id number] [place] [address]- 6625 Oct, [facility] [place] [facility] [address] [id number] [place] [address]- 9616 Sep, [facility] [place] [facility] [address] [id number] [place] [address]- 2679 Sep, [facility] [place] [facility] [address] [id number] [place] [address]- 5123 Sep, [facility] [place] [facility] [address] [id number] [place] [address]- 2585 Sep, [facility] [place] [facility] [address] [id number] [place] [address]- 1881 Sep, [facility] [place] [facility] [address] [id number] [place] [address]- 7672 15 Sep, 2011 [facility] [address] [id number] [place] [address]- 9913 14 Sep, 2011 [facility] [place] [facility] [address] [id number] [place] [address]- 9809 Sep, [facility] [place] [facility] [address] [id number] [place] [address]- 4697 05 Sep, 2011 [facility] [place] [facility] [address] [id number] [place] [address]- 6767 04 Sep, 2011 [facility] [place] [facility] [address] [id number] [place] [address]- 7952 August, [facility] [place] [facility] [address] [id number] [place] [address]- 4852 August, [facility] [address] [id number] [place] [address]- 9448 August, [facility] [place] [facility] [address] [id number] [place] [address]- 2537 August, [facility] [place] [facility] [address] [id number] [place] [address]- 8388 August, [facility] [place] [facility] [address] [id number] [place] [address]- 2471 Jul, [facility] [place] [facility] [address] [id number] [place] [address]- 7456 Jul, [facility] [place] [facility] [address] [id number] [place] [address]- 8059 25 Jul, 2011 [facility] [place] [facility] [address] [id number] [place] [address]- 6915 17 Jul, 2011 [facility] [place] [facility] [address] [id number] [place] [address]- 6923 11 Jul, 2011 [facility] [place] [facility] [address] [facility] [id number] [place] [address]- 6941 Jul, [facility] [place] [facility] [address] [id number] [place] [address]- 6362 Jul, [facility] [place] [facility] [address] [id number] [place] [address]- 8422 Jun, [facility] [place] [facility] [address] [id number] [place] [address]- 6506 Jun, [facility] [place] [facility] [address] [id number] [place] [address]- 8257 Jun, [facility] [place] [facility] [address] [id number] [place] [address]- 3987 Jun, [facility] [place] [facility] [address] [id number] [place] [address]- 1578 Jun, [facility] [place] [facility] [address] [id number] [place] [address]- 3233 May, [facility] [place] [facility] [address] [id number] [place] [address]- 3619 May, [facility] [place] [facility] [address] [id number] [place] [address]- 9565 May, [facility] [place] [facility] [address] [id number] [place] [address]- 0831 May, [facility] [place] [facility] [address] [id number] [place] [address]- 0156 May, [facility] [place] [facility] [address] [id number] [place] [address]- 0225 May, [facility] [place] [facility] [address] [id number] [place] [address]- 9014 Apr, [facility] [place] [facility] [address] [id number] [place] [address]- 5776 Mar, [facility] [place] [facility] [address] [id number] [place] [address]- 3228 Feb, [facility] [place] [facility] [address] [id number], [place] [address]- 3854 07 Feb, 2011 [facility] [place] [facility] [address] [id number] [place] [address]- 0220 Feb, [facility] [place] [facility] [address] [id number] [place] [address] Feb, [facility] [place] [facility] [address] [id number] [place] [address]- 7491 31 Jan, 2011 [facility] [place] [facility] [address] [id number] [place] [address]- 2651 27 Jan, 2011 [facility] [place] [facility] [address] [id number] [place] [address]- 1094 Jan, [facility] [place] [facility] [address] [id number] [place] [address]- 6497 24 Jan, 2011 [facility] [place] [facility] [address] [id number] [place] [address]- 0589 14 Jan, 2011 [facility] [place] [facility] [address] [id number] [place] [address]- 4809 Dec, [facility] [place] [facility] [address] [id number] [place] [address]- 2630 Oct, [facility] [place] [facility] [address] [id number] [place] [address]- 1610 August, [facility] [place] [facility] [address] [id number], [place] [address]- 2708 29 Mar, 2010 [facility] [place] [facility] [address] [id number] [place] [address]- 8820 27 Mar, 2010 [facility] [place] [facility] [address] [id number] [place] [address]- 4675 16 Mar, 2010 [facility] [place] [facility] [address] [id number] [place] [address]209 15 Mar, 2010 [facility] [place] [facility] [address] [id number] [place] [address]- 2035 15 Mar, 2010 [facility] [place] [facility] [address] [id number] [place] [address]- 6641 08 Mar, 2010 [facility] [address] [id number] [place] [address]- 8692 Mar, [facility] [place] [facility] [address] [id number] [place] [address]- 9018 Feb, [facility] [address] [id number] [place] [address]- 3937 24 Feb, 2010 [facility] [place] [facility] [address] [id number] [place] [address]- 9688 15 Feb, 2010 [facility] [address] [id number] [place] [address]- 3261 Jan, [facility] [place] [facility] [address] [id number] [place] [address]- 7141 Jan, [facility] [address] [id number] [place] [address]- 2600 Jan, [facility] [address] [id number] [place] [address]- 9402 Nov, [facility] [place] [facility] [address] [id number] [place] [address]- 7552 Sep, [facility] [address] [facility] [id number] [place] [address]- 1089 August, [facility] [place] [facility] [address] [id number] [place] [address]- 9648 30 Mar, 2009 [facility] [place] [facility] [address] [id number] [place] [address]- 0768 07 Mar, 2009 [facility] [place] [facility] [address] [id number] [place] [address]- 2021 17 Feb, 2009 [facility] [place] [facility] [address] [id number] [place] [address]- 5101 10 Feb, 2009 [facility] [place] [facility] [address] [id number] [place] [address]- 1285 Feb, [facility] [id number] [address]- 0844 Feb, [facility] [id number], [place] [address]- 6588 Feb, [facility] [id number], [place] [address]- 7881 Jan, [facility] [id number], [place] [address]- 7875 Jan, [facility] [id number], [place] [address]- 4803 Jan, [facility] [id number] [place] [address]- 1764 Jan, [facility] [id number], [place] [address]- 1415 Nov, [facility] [id number], [place] [address]- 0479 Sep, [facility] [id number], [place] [address]- 2109 August, [facility] [id number], [place] [address]- 2587 Jul, [facility] [id number], [place] [address]- 5850 May, IMMUNIZATIONS No Known Immunizations SOCIAL HISTORY Never Assessed REASON FOR VISIT RX request for Pill Pack PLAN OF CARE VITAL SIGNS MEDICATIONS Unknown [...] psychiatric treatment 30 days s/p suicide attempt 's Hospitalization History Knee Surgery 07/16/17 Hospitalization History [facility]- left hand/wrist swelling 10/09/2017
--- OUTSIDE RECORDS SUMMARY | 2018-02-10 11:07 | XMS REPORT ---
Author Author SENAIT DUNLAP [facility] Address [address] [place] [address] Care Team Providers Care Yeast Stacker Name Role Phone SENAIT DUNLAP Unavailable PROBLEMS Type Condition ICD9-CM Code FAT89-XI Code Onset Dates Condition Status SNOMED Code Problem 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 Active 35098785 Problem Colon polyp K63.5 Active 50835732 Problem Screening breast examination Z12.39 Active 081253135 Problem Bilateral low back pain without sciatica M54.5 Active 020587672 Problem Postmenopausal Z78.0 Active 54744508 Problem Essential tremor G25.0 Active 60161729 Problem Osteopenia M85.80 Active 960139217 Problem Hyperlipidemia E78.5 Active 12084412 Problem Cigarette nicotine dependence without complication F17.210 Active 58905864 Problem Vascular dementia without behavioral disturbance F01.50 Active 84259373730439569 Problem Arthritis M19.90 Active 8410047 Problem Chronic atrial fibrillation I48.2 Active 317678983 Problem Dementia without behavioral disturbance, unspecified dementia type F03.90 Active 61027338 Problem Other chronic pancreatitis K86.1 Active 402010998 Problem Xeroderma Q80.9 Active 33737185 Problem Chronic obstructive pulmonary disease with acute lower respiratory infection J44.0 Active 454299583 Problem Type 2 diabetes mellitus with diabetic neuropathy, without long-term current use of insulin E11.40 Active 82483748 Problem Atherosclerosis of [place] artery of both lower extremities with intermittent claudication I70.213 Active 815989702914517 Problem Hammertoe of right foot M20.41 Active 574258190 Problem Hammertoe of left foot M20.42 Active 832775619 Problem Migraine without aura and with status migrainosus, not intractable G43.001 Active 802835177 Problem Migraine without aura and without status migrainosus, not intractable G43.009 Active 381266370 Problem Major depressive disorder, recurrent episode, moderate F33.1 Active 008780037 Problem Unspecified psychosis F29 Active 31295295 Problem Cervicalgia M54.2 Active 0705247044752 Problem Diabetic polyneuropathy associated with type 2 diabetes mellitus E11.42 Active 20245324 Problem COPD (chronic obstructive pulmonary disease) J44.9 Active 74518011 Problem Atherosclerotic heart disease of [place]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 I25.118 Active 6973928540827 Problem Gastroparesis K31.84 Active 040000128 Problem Stress incontinence of urine N39.3 Active 09160436 Problem Osteoporosis M81.0 Active 25081108 Problem Controlled type 2 diabetes mellitus without complication, without long -term current use of insulin E11.9 Active 183029812 Problem Barretts esophagus K22.70 Active 311026135 Problem Chronic fatigue R53.82 Active 24949604 Problem History of common bile duct surgery Z98.89 Active 049239942 Problem Bipolar affective disorder, currently depressed, moderate F31.32 Active 675592239 Problem Generalized anxiety disorder F41.1 Active 252486271 Problem Gastroesophageal reflux disease, esophagitis presence not specified K21.9 Active 700910019 Problem Coronary artery disease involving [place] coronary artery of [place] heart with other form of angina pectoris I25.118 Active 0888767451697 Problem Postconcussion syndrome F07.81 Active 97042494 Problem Chronic pain syndrome G89.4 Active 639382298 Problem Type 2 diabetes mellitus with diabetic peripheral angiopathy without gangrene E11.51 Active 270775724 Problem Paroxysmal atrial fibrillation I48.0 Active 809458568 Problem Unspecified atherosclerosis of [place] arteries of extremities, unspecified extremity I70.209 Active 706786927229370 Problem Acute exacerbation of chronic obstructive pulmonary disease (COPD) J44.1 Active 541172772 Problem Crohn''s disease without complication, unspecified gastrointestinal tract location K50.90 Active 25710115 ALLERGIES No Information ENCOUNTERS Encounter Location Date Diagnosis [facility] [address] [facility] [id number] [address] Feb, [facility] [address] [facility] [id number] [address] Dec, [facility] [address] [facility] [id number] [address] Dec, High risk medication use Z79.899 [facility] [address], [place] [address] 25 Dec, 2017 [facility] [address] [place] [id number] [place] [address] 73947- 4184 24 Dec, 2017 [facility] [address], [place] [address] 8276 19 Dec, 2017 [facility] [id number] [place] [address] 68910- 0496 19 Dec, 2017 [facility] [id number] [place] [address] 16516- 6040 18 Dec, 2017 [facility] [id number] [place] [address] 58065- 9769 14 Dec, 2017 [facility] [address] [place] [address] 17280- 1014 14 Dec, 2017 [facility] [address] [place] [address] 40678- 3545 13 Dec, 2017 [facility] [address], [place] [address] Dec, Type 2 diabetes mellitus with diabetic peripheral angiopathy without gangrene E11.51 ; Contusion of face, initial encounter S00.83XA and Bronchitis J40 [facility] [address], [place] [address] 99[address] Dec, [facility] [address] [place] [address] 67499- 1182 06 Dec, 2017 [facility] [address], [place] [address] 0394 Nov, [facility] [address], [place] [address] 0556 Nov, Onychomycosis B35.1 ; Hammertoe of left foot M20.42 ; Hammertoe of right foot M20.41 and Type 2 diabetes mellitus with diabetic neuropathy, without long-term current use of insulin E11.40 [place] [address] [place] [address] 22389- 6969 Nov, [facility] [address] [place] [id number] [place] [address] 25024- 4429 Nov, Bronchitis J40 [facility] [address] [place] [id number] [place] [address] 23110- 4765 Oct, [place] [address] [place] [id number] [place] [address] 18960- 8046 Oct, Bipolar affective disorder, currently depressed, moderate F31.32 ; Vascular dementia without behavioral disturbance F01.50 and Generalized anxiety disorder F41.1 [place] [address] [place] [id number] [place] [address] 88852- 1430 Oct, [place] [address] [id number] [place] [address] 77958- 9496 Oct, [place] [address] [place] [id number] [place] [address] 77306- 1289 Oct, Edema of both legs R60.0 [place] [address] [place] [id number] [place] [address] 10192- 5634 Oct, [place] [address] [place] [id number] [place] [address] 86501- 9146 Sep, [place] [address] [id number] [place] [address] 51367- 1716 Sep, [place] [address] [id number] [place] [address] 15560- 0678 Sep, [place] [address] [place] [address] 39520- 3374 18 Sep, 2017 Encounter for well woman exam with routine gynecological exam Z01.419 ; Screening for STDs (sexually transmitted diseases) Z11.3 ; Screening breast examination Z12.31 and Overweight (BMI 25.0-29.9) E66.3 [facility] [place] [address] [id number] [place] [address] 23979- 4170 Sep, [facility] [address] [address] Sep, [facility] [id number] [place] [address] 673060- 2722 Sep, [facility] [id number] [place] [address] 273728- 5490 August, [facility] [id number] [place] [address] 83895- 6001 August, [facility] [address] [place] [address] 21747- 2384 August, Type 2 diabetes mellitus with diabetic neuropathy, without long-term current use of insulin E11.40 and Sprain of right ankle, unspecified ligament, initial encounter S93.401A [facility] [id number] [place] [address] 06862- 8251 August, [facility] [address] [address] 7335 August, [facility] [id number] [place] [address] 89663- 6449 August, [facility] [address], [place] [address] 7410 August, Gastroesophageal reflux disease, esophagitis presence not specified K21.9 [facility] [address], [place] [address] 1189 August, [facility] [address] August, [facility] [address] [address] August, [facility] [address] [address] [address] August, Type 2 diabetes mellitus with diabetic neuropathy, without long-term current use of insulin E11.40 and Elevated liver enzymes R74.8 [facility] [id number] [place] [address] 23953- 8483 Jul, [facility] [address] 50563- 8806 Jul, Cough R05 [facility] [id number] [place] [address] 55790- 8352 Jul, [facility] [address] 67709- 2586 Jul, [facility] [id number] [place] [address] 35617- 0618 Jul, Bipolar affective disorder, currently depressed, moderate F31.32 ; Vascular dementia without behavioral disturbance F01.50 and Generalized anxiety disorder F41.1 [facility] [id number] [place] [address] 52166- 9474 Jul, [facility] [id number] [place] [address] 76559- 2431 Jul, Type 2 diabetes mellitus with diabetic neuropathy, without long-term current use of insulin E11.40 and Elevated liver enzymes R74.8 [facility] [id number] [place] [address] 70086- 8145 Jul, [facility] [id number] [place] [address] 44564- 0830 Jul, [facility] [id number] [place] [address] 40522- 8250 17 Jul, 2017 [facility] [id number] [place] [address] 71239- 6119 Jul, Post-menopausal Z78.0 [facility] [id number] [place] [address] 99929- 9849 Jul, Stress incontinence of urine N39.3 [facility] [id number] [place] [address] 02945- 5268 Jul, [facility] [id number] [place] [address] 78981- 6747 Jul, [facility] [id number] [place] [address] 99324- 5857 Jul, Stress incontinence of urine N39.3 and Cough R05 [facility] [id number] [place] [address] 38473- 4779 Jul, [facility] [id number] [place] [address] 42217- 4141 Jul, [facility] [id number] [place] [address] 29078- 1954 Jul, [facility] [id number] [place] [address] 94173- 0171 Jul, Gastroesophageal reflux disease, esophagitis presence not specified K21.9 [facility] [id number] [place] [address] 24619- 3095 Jun, Diabetic polyneuropathy associated with type 2 diabetes mellitus E11.42 [facility] [id number] [place] [address] 28265- 0723 Jun, Diabetic polyneuropathy associated with type 2 diabetes mellitus E11.42 ; Coronary artery disease involving [place] coronary artery of [place] heart with other form of angina pectoris I25.118 and Paroxysmal atrial fibrillation I48.0 [facility] [id number] [place] [address] 30967- 1004 Jun, [facility] [id number] [place] [address] 90811- 8369 Jun, [facility] [id number] [place] [address] 07838- 4955 Jun, Gastroenteritis K52.9 [facility] [id number] [place] [address] 89222- 7100 Jun, Gastroenteritis K52.9 [facility] [id number] [place] [address] 19629- 1771 Jun, [place] [address] [place] [address] 05419- 0551 Jun, [facility] [address] [id number] [place] [address] 61207- 1886 Jun, Sprain of right ankle, unspecified ligament, initial encounter S93.401A ; Type 2 diabetes mellitus with diabetic neuropathy, without long-term current use of insulin E11.40 ; Atherosclerosis of [place] artery of both lower extremities with intermittent claudication I70.213 ; Atherosclerotic heart disease of [place]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 I25.118 ; Chronic atrial fibrillation I48.2 and Crohn''s disease without complication, unspecified gastrointestinal tract location K50.90 [facility] [id number] [place] [address] 19135 -7032 17 Jun, 2017 Cough R05 and Chronic obstructive pulmonary disease with acute lower respiratory infection J44.0 [place] [id number] [place] [address] 69990- 8951 16 Jun, 2017 [facility] [address] [id number] [place] [address] 01204- 7793 15 Jun, 2017 Coughing R05 ; Unspecified atherosclerosis of [place] arteries of extremities, unspecified extremity I70.209 ; Type 2 diabetes mellitus with diabetic peripheral angiopathy without gangrene E11.51 ; Crohn''s disease without complication, unspecified gastrointestinal tract location K50.90 ; Other chronic pancreatitis K86.1 and Chronic atrial fibrillation I48.2 [facility] [address] [place] [address] 05990 -5214 Jun, [facility] [address] [address] [id number] [place] [address] 11670- 2211 Jun, Bipolar affective disorder, currently depressed, moderate F31.32 ; Vascular dementia without behavioral disturbance F01.50 and Generalized anxiety disorder F41.1 [place] [address] [place] [address] 94018- 4707 May, Generalized anxiety disorder F41.1 [facility] [address] [id number] [place] [address] 83392- 7956 May, [facility] [id number] [place] [address] 22314- 9819 May, [facility] [id number] [place] [address] 52059- 0924 May, Coughing R05 [place] [address] 81477- 2861 May, [facility] [address] 20964- 0462 May, Bipolar affective disorder, currently depressed, moderate F31.32 ; Vascular dementia without behavioral disturbance F01.50 and Generalized anxiety disorder F41.1 [place] [address] 13158- 6116 Apr, Generalized anxiety disorder F41.1 [place] [address] 19648- 8606 Apr, [facility] [address] [id number] [place] [address] 56845- 5075 Apr, Vascular dementia without behavioral disturbance F01.50 ; Generalized anxiety disorder F41.1 and Bipolar affective disorder, currently depressed, moderate F31.32 [place] [address] [id number] [place] [address] 39246- 5694 Apr, Generalized anxiety disorder F41.1 [facility] [id number] [place] [address] 49721 -3070 Apr, Cough R05 and Acute exacerbation of chronic obstructive pulmonary disease (COPD) J44.1 [place] [address] 13655- 1606 Apr, [facility] [id number] [place] [address] 66803 -2509 Mar, Cough R05 and Cigarette nicotine dependence without complication F17.210 [place] [address] 88278- 0761 Mar, [place] [address] [id number] [place] [address] 02885- 8261 Feb, Generalized anxiety disorder F41.1 ; Major depressive disorder, recurrent episode, moderate F33.1 ; Vascular dementia without behavioral disturbance F01.50 and Unspecified psychosis F29 [place] [id number] [place] [address] 60202- 1115 Feb, [place] [id number] [place] [address] 53028- 5338 Feb, [place] [id number] [place] [address] 68168- 5220 Feb, Generalized anxiety disorder F41.1 [place] [id number] [place] [address] 65874- 4241 Feb, Generalized anxiety disorder F41.1 [place] [address] [id number] [place] [address] 39031- 9074 Feb, Dizziness R42 ; Chronic fatigue R53.82 ; Postconcussion syndrome F07.81 ; Fall, initial encounter W19.XXXA and Disorientation R41.0 [place] [address] [id number] [place] [address] 58193- 4880 Feb, Postconcussion syndrome F07.81 ; Injury of head, initial encounter S09.90XA ; Fall, initial encounter W19.XXXA ; Disorientation R41.0 and Acute cystitis with hematuria N30.01 [place] [address] [place] [address] 66090- 0123 Jan, Gastroesophageal reflux disease, esophagitis presence not specified K21.9 ; Post-menopausal Z78.0 and Migraine without aura and without status migrainosus, not intractable G43.009 [place] [id number] [place] [address] 58948- 0270 Jan, [facility] [id number] [place] [address] 18998- 9288 Jan, Generalized anxiety disorder F41.1 ; Major depressive disorder, recurrent episode, moderate F33.1 ; Vascular dementia without behavioral disturbance F01.50 and Unspecified psychosis F29 [place] [id number] [place] [address] 40630- 2004 Jan, Pneumonia of left lower lobe due to infectious organism J18.1 [place] [address] [id number] [place] [address] 77833- 3352 Jan, Migraine without aura and with status migrainosus, not intractable G43.001 [facility] [id number] [place] [address] 06420 -1052 Jan, Migraine without aura and without status migrainosus, not intractable G43.009 [place] [address] [id number] [place] [address] 85156- 9756 Dec, Hematoma T14.8 [place] [address] 95854- 9743 Dec, [facility] [id number] [place] [address] 69758 -1488 Nov, Fatigue, unspecified type R53.83 [place] [id number] [place] [address] 95480- 4863 Nov, Scabies B86 and Coronary artery disease involving [place] coronary artery of [place] heart with other form of angina pectoris I25.118 [place] [id number] [place] [address] 92088- 1292 Nov, [facility] [address] [place] [id number] [place] [address] 91559- 5263 Nov, [place] [address] 75204- 4798 Oct, [place] [address] [place] [id number] [place] [address] 87345- 0430 Oct, Generalized anxiety disorder F41.1 and Major depressive disorder, recurrent episode, moderate F33.1 [facility] [address] [address]- 2422 19 Oct, 2016 Cramp of both lower extremities R25.2 [facility] [address] [place] [address] 10075- 5057 Oct, Leg cramps R25.2 [facility] [id number] [place] [address] 54085- 5323 Oct, Chronic pain syndrome G89.4 [facility] [address] [place] [address] 40515- 3657 Oct, [facility] [id number] [place] [address] 10855- 5336 Oct, [facility] [id number] [place] [address] 14163- 8957 Oct, Routine gynecological examination Z01.419 and Screening for breast cancer Z12.31 [facility] [id number] [place] [address] 55116- 4412 Sep, Diarrhea R19.7 [facility] [id number] [place] [address] 76798- 0369 Sep, Back pain M54.9 [facility] [id number] [place] [address] 72293- 7611 Sep, [facility] [address] [place] [address] 44173- 4878 Sep, [facility] [address] [place] [address] 73778 -6160 August, Xeroderma Q80.9 [facility] [id number] [place] [address] 97814- 4223 August, Dementia without behavioral disturbance, unspecified dementia type F03.90 [facility] [address] [place] [address] 42180- 5781 August, Chronic pain syndrome G89.4 [place] [id number] [place] [address] 39441- 7035 August, [place] [address] 42784- 4499 August, Hyperlipidemia E78.5 ; Other fatigue R53.83 and Other specified hypotension I95.89 [facility] [address] 77922 -2400 August, Dysuria R30.0 ; Other fatigue R53.83 and Other specified hypotension I95.89 [place] [address] 94472- 6933 August, [place] [address] 45645- 2833 Jul, Pain in left knee M25.562 and Gastroenteritis K52.9 [place] [address] 06247- 7194 Jul, [place] [address] 07610- 5269 Jul, Diarrhea R19.7 [facility] [place] [address] 74733 -5429 Jul, Spider bite, accidental or unintentional, initial encounter T63.301A [place] [address] 17079- 9247 Jul, Primary osteoarthritis of right knee M17.11 and Arthritis M19.90 [place] [id number] [place] [address] 45736- 7201 Jul, Generalized anxiety disorder F41.1 and Major depressive disorder, recurrent episode, moderate F33.1 [place] [address] [address] 07 Jul, 2016 Type 2 diabetes mellitus with diabetic polyneuropathy E11.42 and Temporal headache R51 [place] [address] [address] Jul, Back pain M54.9 [facility] [address] [address] Jul, [facility] [address] [address] Jul, [facility] [address] [address] 30 Jun, 2016 Nausea R11.0 [facility] [address] [address] Jun, Acute suppurative otitis media of both ears without spontaneous rupture of tympanic membranes, recurrence not specified H66.003 and COPD exacerbation J44.1 [place] [address] [address] Jun, Generalized anxiety disorder F41.1 [place] [address] [address] 16 Jun, 2016 [facility] [address] [address] Jun, [facility] [address] [address] Jun, Shortness of breath R06.02 and COPD exacerbation J44.1 [place] [address] [address] 10 Jun, 2016 Eczema, unspecified type L30.9 [facility] [address] [address]- 4230 09 Jun, 2016 [facility] [address] 8[address]88- 8277 24 May, 2016 [place] [address] 66829- 3238 May, Muscle cramping R25.2 [place] [id number] [place] [address] 5[address] May, [facility] [id number] [place] [address] 97799- 1961 Apr, Diarrhea R19.7 [facility] [id number] [place] [address] 87524- 7585 Apr, [facility] [address] 03395- 2553 Apr, Chronic pain syndrome G89.4 [place] [address] 25657- 6572 Apr, Cramp of both lower extremities R25.2 and Vascular dementia without behavioral disturbance F01.50 [place] [id number] [place] [address] 39569- 7870 Apr, Type 2 diabetes mellitus with diabetic polyneuropathy E11.42 and Cigarette nicotine dependence without complication F17.210 [place] [id number] [place] [address] 06067- 7558 Mar, Generalized anxiety disorder F41.1 [place] [address] 72779- 5777 Feb, Generalized anxiety disorder F41.1 and Major depressive disorder, recurrent episode, moderate F33.1 [place] [id number] [place] [address] 33616- 3689 Feb, [facility] [id number] [place] [address] 07217 -2509 Feb, Dysuria R30.0 and Acute cystitis with hematuria N30.01 [facility] [address] 32161- 4358 Jan, [facility] [id number] [place] [address] 16880- 7619 Jan, [facility] [address] 91804- 6531 Jan, [facility] [id number] [place] [address] 17739- 3943 Jan, [facility] [id number] [place] [address] 41188 -6049 10 Jan, 2016 Wasp sting, accidental or unintentional, initial encounter T63.461A [facility] [id number] [place] [address] 39129- 2811 06 Jan, 2016 Encounter for immunization Z23 [facility] [address] 62910- 4292 Jan, [facility] [address] 27937- 2215 Jan, [facility] [id number] [place] [address] 71891- 5115 28 Dec, 2015 Generalized anxiety disorder F41.1 and Major depressive disorder, recurrent episode, moderate F33.1 [facility] [id number] [place] [address] 39676- 8107 21 Dec, 2015 Routine gynecological examination Z01.419 ; Postmenopausal Z78.0 ; Screening breast examination Z12.39 ; Osteopenia M85.80 and Breast cancer screening Z12.39 [facility] [id number] [place] [address] 04470- 4540 20 Dec, 2015 [facility] [id number] [place] [address] 78528- 1729 19 Dec, 2015 [facility] [id number] [place] [address] 63157- 1324 16 Dec, 2015 [facility] [id number] [place] [address] 42682- 7164 16 Dec, 2015 [facility] [id number] [place] [address] 14260- 8268 14 Dec, 2015 [facility] [id number] [place] [address] 81103- 6421 06 Dec, 2015 [facility] [id number] [address]- 8938 Nov, [facility] [id number] [address]65[address] Nov, Cough R05 ; Other viral agents as the cause of diseases classified elsewhere B97.89 and Acute upper respiratory infection, unspecified J06.9 [facility] [id number] [address]- 0646 Nov, [facility] [id number] [address]- 4541 Nov, [facility] [id number] [address]- 1215 Nov, [facility] [id number] [address]- 2370 Nov, [facility] [id number] [place] [address]- 1494 Nov, [facility] [id number] [address]- 8769 Oct, [facility] [address] [address]- 3010 Oct, [facility] [address] [address]- 4189 Oct, [facility] [address], [place] [address]- 9149 Oct, Chronic pain syndrome G89.4 [facility] [address], [place] [address]- 5121 Sep, Generalized anxiety disorder F41.1 and Major depressive disorder, recurrent episode, moderate F33.1 [facility] [address] [address]- 1013 Sep, [facility] [address] [address]- 0002 Sep, [facility] [id number] [place] [address] 13962- 7139 14 Sep, 2015 Generalized anxiety disorder F41.1 [facility] [id number] [place] [address] 49855- 2381 13 Sep, 2015 Cramp of both lower extremities R25.2 and Cervicalgia M54.2 [place] [id number] [place] [address] 98162- 5324 06 Sep, 2015 Generalized anxiety disorder F41.1 [facility] [id number] [place] [address] 41922- 3479 Sep, [facility] [id number] [place] [address] 62609 -4996 August, Rash R21 ; Itching L29.9 and Allergic response, subsequent encounter T78.40XD [place] [id number] [place] [address] 63916- 4558 August, Primary insomnia F51.01 [facility] [id number] [place] [address] 63064 -2698 August, Rash R21 ; Itching L29.9 and Allergic response, initial encounter T78.40XA [place] [id number] [place] [address] 96272- 2777 August, [place] [id number] [place] [address] 17803- 4583 August, Cramp of both lower extremities R25.2 [place] [id number] [place] [address] 85162- 9114 August, Back pain M54.9 [place] [id number] [place] [address] 42859- 6185 August, [facility] [id number] [place] [address] 83899- 3290 August, [facility] [address] [place] [address] August, Cramp of both lower extremities R25.2 [facility] [id number] [place] [address] 33242- 4687 August, [facility] [id number] [place] [address] 09710- 3965 August, Syncope R55 ; Paroxysmal atrial fibrillation I48.0 ; Dementia without behavioral disturbance, unspecified dementia type F03.90 and Chronic pain syndrome G89.4 [facility] [id number] [place] [address] 59900- 0558 August, Type 2 diabetes mellitus with diabetic polyneuropathy E11.42 and Syncope R55 [facility] [id number] [place] [address] 34253- 9021 Jul, [facility] [id number] [place] [address] 67702- 9192 Jul, [facility] [id number] [place] [address] 37894- 1995 Jul, [facility] [id number] [place] [address] 11189- 3926 Jul, [facility] [id number] [place] [address] 88083- 3708 Jul, [facility] [id number] [place] [address] 91178- 7697 Jul, UTI (urinary tract infection) N39.0 [facility] [address] [address]- 2097 Jul, [facility] [id number] [place] [address] 20457- 9969 Jul, Major depressive disorder, recurrent episode, moderate F33.1 and Generalized anxiety disorder F41.1 [facility] [address] [address]- 1711 Jul, Generalized anxiety disorder F41.1 [place] [id number], [place] [address]- 6358 14 Jul, 2015 Diarrhea R19.7 [facility] [id number] [address]- 5266 14 Jul, 2015 [facility] [address], [place] [address]- 1522 Jun, [facility] [id number] [place] [address] 02331 2546 Jun, Eczema L30.9 [facility] [id number] [place] [address] 64680- 5416 Jun, [facility] [id number] [place] [address] 23729- 5629 Jun, COPD (chronic obstructive pulmonary disease) J44.9 [facility] [id number] [place] [address] 57503- 7555 Jun, [facility] [address] [address]- 9920 Jun, Major depressive disorder, recurrent episode, moderate F33.1 and Generalized anxiety disorder F41.1 [facility] [address] [address]- 1028 May, [facility] [id number], [place] [address]- 4447 May, UTI (urinary tract infection) N39.0 [facility] [id number] [address]- 2356 May, [facility] [id number], [place] [address]- 8006 May, [facility] [address], [place] [address]- 7824 May, [facility] [address] [address]- 3456 May, [facility] [address], [place] [address]- 8587 Apr, Major depressive disorder, recurrent episode, moderate F33.1 and Generalized anxiety disorder F41.1 [facility] [address] [address]- 3742 Apr, COPD (chronic obstructive pulmonary disease) J44.9 [facility] [id number] [place] [address] 28215- 6513 Apr, [facility] [id number] [place] [address] 54088- 7648 Apr, Atrial flutter I48.92 [facility] [id number] [place] [address] 70304- 7108 Apr, [facility] [id number] [place] [address] 98632- 5869 Apr, [facility] [id number] [place] [address] 16261- 0291 Mar, [facility] [id number] [place] [address] 73497- 2547 Mar, [facility] [id number] [address]- 0596 Mar, [facility] [address], [place] [address]- 9964 Mar, Hyperlipidemia E78.5 ; Type 2 diabetes mellitus with diabetic polyneuropathy E11.42 ; Major depressive disorder, recurrent episode, moderate F33.1 and Chronic pain syndrome G89.4 [facility] [address], [place] [address]- 4037 Mar, [facility] [id number] [address]- 4801 Mar, [facility] [address], [place] [address]- 5416 Mar, [facility] [address], [place] [address]- 7877 Mar, [facility] [id number] [place] [address] 07812- 7364 Feb, COPD (chronic obstructive pulmonary disease) J44.9 and Back pain M54.9 [facility] [id number] [place] [address] 74037- 9673 Feb, [facility] [id number] [place] [address] 75480- 5644 Feb, [facility] [id number] [place] [address] 11487- 3744 Feb, [facility] [id number] [place] [address] 32179- 4415 Feb, [facility] [id number] [place] [address] 17834- 9597 Feb, [facility] [id number] [place] [address] 58140- 4400 Feb, [facility] [id number] [place] [address] 93777- 6071 Feb, [facility] [id number] [place] [address] 43618- 8981 Feb, [facility] [id number] [place] [address] 82900- 2604 Feb, Diabetes E11.9 ; Back pain M54.9 and COPD (chronic obstructive pulmonary disease) J44.9 [facility] [address] [address]- 4424 Jan, [facility] [id number] [place] [address] 68300- 1152 Jan, Major depression, recurrent F33.9 and Generalized anxiety disorder F41.1 [facility] [id number] [place] [address] 30225- 4495 Jan, Chronic pain G89.29 [facility] [address], [place] [address]- 9647 Jan, [facility] [id number] [place] [address] 08677- 4372 Jan, [facility] [id number] [place] [address] 73875- 3988 Jan, [facility] [id number] [place] [address] 87046- 6867 Jan, [facility] [id number] [place] [address] 52188- 5871 Jan, Nicotine dependence F17.200 [facility] [id number] [place] [address] 46988- 1445 Jan, Nicotine dependence F17.200 and Back pain M54.9 [facility] [id number] [place] [address] 27107- 3018 Jan, [facility] [id number] [place] [address] 26828- 9898 28 Dec, 2014 [facility] [id number] [place] [address] 03922- 2271 25 Dec, 2014 Anxiety, generalized 300.02 and Major depression, recurrent 296.30 [facility] [id number] [place] [address] 59572- 5713 24 Dec, 2014 [facility] [id number] [place] [address] 74310- 4355 21 Sep, 2014 [facility] [id number] [place] [address] 25152- 4041 17 Dec, 2014 [facility] [id number] [place] [address] 55064- 4369 15 Dec, 2014 [facility] [id number] [place] [address] 44514- 0142 14 Dec, 2014 [facility] [address] [address]- 6720 11 Dec, 2014 [facility] [address], [place] [address]- 0383 Dec, [facility] [id number] [place] [address] 08093- 8489 08 Dec, 2014 Skin tear 879.8 [facility] [id number] [place] [address] 86640- 3949 Dec, Routine gynecological examination V72.31 ; Breast cancer screening V76.10 and Family history of breast cancer in first degree relative V16.3 [facility] [id number] [place] [address] 89433- 9784 Dec, [facility] [id number] [place] [address] 29767- 0878 Dec, [facility] [id number] [place] [address] 41526- 4936 Nov, [facility] [id number] [place] [address] 75278- 0538 Nov, [facility] [id number] [place] [address] 11251- 1400 Nov, Poor balance 781.99 and Vascular dementia, uncomplicated 290.40 [facility] [id number] [place] [address] 68510- 4996 Nov, [facility] [id number] [place] [address] 02871- 3622 Nov, Major depression, recurrent 296.30 and Anxiety, generalized 300.02 [facility] [id number] [place] [address] 77401- 2283 Nov, [facility] [id number] [place] [address] 22679- 1680 Nov, [facility] [id number] [place] [address] 97600- 6149 Nov, [facility] [address], [place] [address]- 5932 Nov, [facility] [id number] [place] [address] 70726- 4500 Nov, Vascular dementia, uncomplicated 290.40 and Lumbago 724.2 [facility] [id number] [address]- 8351 Nov, [facility] [id number] [place] [address] 52403- 5860 Nov, [facility] [id number] [place] [address] 73087- 5589 Nov, [facility] [id number] [place] [address] 81181- 9276 Oct, [facility] [id number] [place] [address] 88196- 4575 Oct, [facility] [id number] [address]- 9025 Oct, [facility] [id number] [place] [address] 83306- 3217 Oct, COPD (chronic obstructive pulmonary disease) 496 and Hyperlipidemia 272.4 [facility] [address], [place] [address]- 5057 Oct, Major depression, recurrent 296.30 and Anxiety, generalized 300.02 [facility] [address], [place] [address]- 0210 Oct, [facility] [address], [place] [address]- 1864 Oct, [facility] [address], [place] [address]- 7189 Oct, [facility] [id number] [address]- 4079 Sep, Lumbago 724.2 and Anxiety state, unspecified 300.00 [facility] [address], [place] [address]- 4172 Sep, [facility] [id number] [place] [address] 33676- 2811 Sep, [facility] [id number], [place] [address]- 3115 August, [facility] [id number] [place] [address] 11275- 9467 August, Major depression, recurrent 296.30 ; Anxiety, generalized 300.02 and No condition on [place] V71.09 [facility] [id number] [place] [address] 37708- 4428 August, [facility] [id number] [place] [address] 80515- 4138 August, [facility] [id number] [place] [address] 06188- 9164 Jul, [facility] [id number] [address]- 7729 Jul, [facility] [id number] [place] [address] 66425- 9854 Jul, [facility] [address], [place] [address]- 1102 Jun, [facility] [address], [place] [address]- 7515 Jun, [facility] [address], [place] [address]- 5040 Jun, [facility] [id number] [place] [address], [place] [address]- 2446 Jun, [facility] [id number] [address] Jun, [facility] [id number] [place] [address] 23 Jun, 2014 [facility] [place] [facility] [address] [id number] [place] [address]- [address] 23 Jun, 2014 [facility] [place] [facility] [address] [id number] [place] [address]- [address] 17 Jun, 2014 [facility] [place] [facility] [address] [id number] [place] [address]- [address] 13 Jun, 2014 [facility] [place] [facility] [address] [id number] [place] [address]- [address] 13 Jun, 2014 [facility] [place] [facility] [address] [id number] [place] [address]- [address] 10 Jun, 2014 [facility] [place] [facility] [address] [id number] [place] [address] 10 Jun, 2014 [facility] [place] [facility] [address] [facility] [id number] [place] [address]- [address] Jun, [facility] [place] [facility] [address] [id number] [place] [address] Jun, [facility] [place] [facility] [address] [id number] [place] [address]- [address]26 Jun, [facility] [place] [facility] [address] [id number] [place] [address]- [address] Jun, [facility] [place] [facility] [address] [id number] [place] [address]- [address] May, 2014 [facility] [place] [facility] [address] [id number] [place] [address]- [address] May, 2014 [facility] [place] [facility] [address] [id number] [place] [address]- [address]31 May, 2014 [facility] [place] [facility] [address] [id number] [place] [address]- [address]269 May, 2014 [facility] [place] [facility] [address] [facility] [id number] [place] [address]- [address]31 May, 2014 [facility] [place] [facility] [address] [id number] [place] [address]- [address] May, 2014 [facility] [place] [facility] [address] [id number] [place] [address]- 6406 May, 2014 [facility] [place] [facility] [address] [id number] [place] [address] 2546 May, 2014 [facility] [place] [facility] [address] [id number] [place] [address]- 2746 May, 2014 [facility] [place] [facility] [address] [id number] [place] [address]- [address]262 May, 2014 [facility] [place] [facility] [address] [id number] [place] [address]- 9196 May, 2014 [facility] [place] [facility] [address] [facility] [id number] [place] [address]- [address] May, 2014 [facility] [place] [facility] [address] [id number] [place] [address]- 4124 May, 2014 [facility] [place] [facility] [address] [id number] [place] [address]- [address] May, 2014 [facility] [place] [facility] [address] [facility] [id number] [place] [address]- [address] Apr, [facility] [place] [facility] [address] [id number] [place] [address]- [address]150 Apr, [facility] [place] [facility] [address] [id number] [place] [address]- 480[address] Apr, [facility] [place] [facility] [address] [id number] [place] [address] 25[address] Apr, [facility] [place] [facility] [address] [id number] [place] [address]- 2549 Apr, [facility] [place] [facility] [address] [id number] [place] [address]- [address] Apr, [facility] [place] [facility] [address] [id number] [place] [address]- 95[address] Apr, [facility] [address] [id number] [place] [address]- 1398 Apr, [facility] [place] [facility] [address] [id number] [place] [address]- 1306 Apr, [facility] [place] [facility] [address] [id number] [place] [address]- 7898 Apr, [facility] [place] [facility] [address] [id number] [place] [address]- 7125 Apr, [facility] [place] [facility] [address] [id number] [place] [address]- 7298 Apr, [facility] [place] [facility] [address] [id number] [place] [address]- 1553 Mar, [facility] [address] [id number] [place] [address]- [address] 31 Mar, 2014 [facility] [place] [facility] [address] [id number] [place] [address]- [address] 30 Mar, 2014 [facility] [place] [facility] [address] [id number] [place] [address]- 58[address] 30 Mar, 2014 [facility] [place] [facility] [address] [id number] [place] [address]- [address]857 29 Mar, 2014 [facility] [place] [facility] [address] [id number] [place] [address]- 0471 29 Mar, 2014 [facility] [place] [facility] [address] [id number] [place] [address]- 5657 19 Mar, 2014 [facility] [place] [facility] [address] [id number] [place] [address]- [address] Mar, [facility] [place] [facility] [address] [id number] [place] [place] [address] 15 Mar, 2014 [facility] [place] [facility] [address] [id number] [place] [address] 2771 15 Mar, 2014 [facility] [place] [facility] [address] [id number] [place] [address] 0909 15 Mar, 2014 [facility] [place] [facility] [address] [id number] [place] [address] 7176 Mar, [facility] [place] [facility] [address] [id number] [place] [address] 2616 Mar, [facility] [place] [facility] [address] [id number] [place] [address]- 7766 Mar, [facility] [place] [facility] [address] [id number] [place] [address]- 6183 Mar, [facility] [place] [facility] [address] [id number] [place] [address]- 9507 Mar, [facility] [place] [facility] [address] [id number] [place] [address]- 6844 Mar, [facility] [place] [facility] [address] [id number] [place] [address]- 6670 Mar, [facility] [place] [facility] [address] [id number] [place] [address]- 7218 Mar, [facility] [place] [facility] [address] [id number] [place] [address]- 0817 Mar, [facility] [place] [facility] [address] [id number] [place] [address]- 9930 Feb, [facility] [place] [facility] [address] [id number] [place] [address]- 1655 Feb, [facility] [place] [facility] [address] [id number] [place] [address]- 5030 Feb, [facility] [place] [facility] [address] [id number] [place] [address]- 2052 Feb, [facility] [place] [facility] [address] [id number] [place] [address]- 4334 Feb, [facility] [place] [facility] [address] [id number] [place] [address]- 7564 Feb, [facility] [place] [facility] [address] [id number] [place] [address]- 7810 Feb, [facility] [place] [facility] [address] [id number] [place] [address]- 7259 Feb, [facility] [place] [facility] [address] [id number] [place] [address]- 0413 Feb, [facility] [place] [facility] [address] [id number], [place] [address]- 3129 Feb, [facility] [place] [facility] [address] [id number] [place] [address]- 2913 Feb, [facility] [place] [facility] [address] [id number], [place] [address]- 5991 Feb, [facility] [place] [facility] [address] [id number] [place] [address]- 8056 Feb, [facility] [place] [facility] [address] [id number], [place] [address]- 2676 Feb, [facility] [place] [facility] [address] [id number], [place] [address]- 7178 Feb, [facility] [place] [facility] [address] [id number], [place] [address]- 5272 Feb, [facility] [place] [facility] [address] [id number], [place] [address]- 4999 Feb, [facility] [place] [facility] [address] [id number], [place] [address]- 9597 Jan, [facility] [place] [facility] [address] [id number], [place] [address]- 7711 Jan, [facility] [place] [facility] [address] [id number], [place] [address]- 4862 Jan, [facility] [place] [facility] [address] [id number], [place] [address]- 8279 Jan, [facility] [place] [facility] [address] [id number] [place] [address]- 3523 Jan, [facility] [place] [facility] [address] [id number] [place] [address]- 1635 Jan, [facility] [place] [facility] [address] [id number] [place] [address]- 8604 Jan, [facility] [place] [facility] [address] [id number] [place] [address]- 2166 Jan, [facility] [place] [facility] [address] [id number] [place] [address]- 8247 Jan, [facility] [place] [facility] [address] [id number] [place] [address]- 2778 Jan, [facility] [place] [facility] [address] [id number] [place] [address]- 9337 Jan, [facility] [place] [facility] [address] [id number] [place] [address]- 4798 Dec, [facility] [place] [facility] [address] [id number] [place] [address]- 5227 Dec, [facility] [place] [facility] [address] [id number] [place] [address]- 6455 Nov, [facility] [place] [facility] [address] [id number] [place] [address]- 1299 Nov, [facility] [place] [facility] [address] [id number] [place] [address]- 1177 Nov, [facility] [place] [facility] [address] [id number] [place] [address]- 5843 Nov, [facility] [place] [facility] [address] [id number] [place] [address]- 7229 Nov, [facility] [place] [facility] [address] [id number] [place] [address]- 4018 Nov, [facility] [place] [facility] [address] [id number] [place] [address]- 6401 Nov, [facility] [place] [facility] [address] [id number] [place] [address]- 1459 Oct, 2013 [facility] [place] [facility] [address] [id number] [place] [address]- 8938 Oct, [facility] [place] [facility] [address] [id number] [place] [address]- 2055 Oct, [facility] [place] [facility] [address] [id number] [place] [address]- 0887 Oct, [facility] [place] [facility] [address] [id number] [place] [address]- 1295 Sep, [facility] [place] [facility] [address] [id number] [place] [address]- 1739 Sep, [facility] [place] [facility] [address] [id number] [place] [address]- 3062 Sep, [facility] [place] [facility] [address] [id number] [place] [address]- 0793 Sep, [facility] [place] [facility] [address] [id number] [place] [address]- 8712 Sep, [facility] [place] [facility] [address] [id number] [place] [address]- 6619 Sep, [facility] [place] [facility] [address] [id number] [place] [address]- 5751 Sep, [facility] [place] [facility] [address] [id number] [place] [address]- 8996 Sep, [facility] [place] [facility] [address] [id number] [place] [address]- 0258 Sep, [facility] [place] [facility] [address] [id number] [place] [address]- 1295 Sep, [facility] [place] [facility] [address] [id number] [place] [address]- 2380 05 Sep, 2013 [facility] [place] [facility] [address] [id number] [place] [address]- 3578 Sep, [facility] [place] [facility] [address] [id number] [place] [address]- 6281 Sep, [facility] [place] [facility] [address] [id number] [place] [address]- 7102 Sep, [facility] [place] [facility] [address] [id number] [place] [address]- 7578 August, [facility] [place] [facility] [address] [id number] [place] [address]- 3781 August, [facility] [place] [facility] [address] [id number] [place] [address]- 5692 August, [facility] [place] [facility] [address] [id number] [place] [address]- 4750 August, [facility] [place] [facility] [address] [id number] [place] [address]- 2182 August, [facility] [place] [facility] [address] [id number] [place] [address]- 8390 August, [facility] [place] [facility] [address] [id number] [place] [address]- 5992 August, [facility] [place] [facility] [address] [id number] [place] [address]- 3050 August, [facility] [place] [facility] [address] [id number] [place] [address]- 7394 August, [facility] [place] [facility] [address] [id number] [place] [address]- 8908 August, [facility] [place] [facility] [address] [id number] [place] [address]- 1890 August, [facility] [place] [facility] [address] [id number] [place] [address]- 1141 August, [facility] [place] [facility] [address] [id number] [place] [address]- 1823 August, [facility] [place] [facility] [address] [id number] [place] [address]- 6158 August, [facility] [address] [id number] [place] [address]- 3338 August, [facility] [place] [facility] [address] [id number] [place] [address]- 9286 August, [facility] [address] [id number] [place] [address]- 0668 August, [facility] [address] [id number] [place] [address]- 3280 August, [facility] [address] [id number] [place] [address]- 8396 August, [facility] [address] [id number] [place] [address]- 9730 Jul, [facility] [address] [id number] [place] [address]- 0884 Jul, [facility] [address] [id number] [place] [address]- 9523 Jul, [facility] [address] [id number] [place] [address]- 2390 Jul, [facility] [address] [id number] [place] [address]- 2877 Jun, [facility] [place] [facility] [address] [id number] [place] [address]- 4121 Jun, [facility] [place] [facility] [address] [id number] [place] [address]- 7887 Jun, [facility] [place] [facility] [address] [id number] [place] [address]- 4798 Jun, [facility] [place] [facility] [address] [id number] [place] [address]- 4486 Jun, [facility] [place] [facility] [address] [id number] [place] [address] 9544 Jun, [facility] [place] [facility] [address] [id number] [place] [address]- 3407 14 Jun, 2013 [facility] [place] [facility] [address] [id number] [place] [address]- 7262 14 Jun, 2013 [facility] [place] [facility] [address] [id number] [place] [address]- 9813 Jun, [facility] [place] [facility] [address] [id number] [place] [address]- 3912 Jun, [facility] [place] [facility] [address] [id number] [place] [address]- 8069 May, [facility] [place] [facility] [address] [id number] [place] [address]- 5204 May, [facility] [place] [facility] [address] [facility] [id number] [place] [address]- 9669 May, [facility] [place] [facility] [address] [id number] [place] [address]- 6256 May, [facility] [place] [facility] [address] [facility] [id number] [place] [address]- 4546 May, [facility] [place] [facility] [address] [facility] [id number] [place] [address]- 6525 May, [facility] [place] [facility] [address] [facility] [id number] [place] [address]- 2999 May, [facility] [place] [facility] [address] [facility] [id number] [place] [address]- 9384 May, [facility] [place] [facility] [address] [id number] [place] [address]- 1081 May, [facility] [place] [facility] [address] [facility] [id number] [place] [address]- 2184 18 May, 2013 [facility] [place] [facility] [address] [facility] [id number] [place] [address]- 6503 May, [facility] [place] [facility] [address] [id number] [place] [address]- 2142 17 May, 2013 [facility] [place] [facility] [address] [id number] [place] [address]- 1098 May, [facility] [place] [facility] [address] [id number] [place] [address]- 4856 May, [facility] [place] [facility] [address] [id number] [place] [address]- 7432 May, [facility] [place] [facility] [address] [id number] [place] [address]- 3250 May, [facility] [place] [facility] [address] [id number] [place]596 May, [facility] [place] [facility] [address] [id number] [place] [address]- 8233 Apr, [facility] [place] [facility] [address] [id number] [place] [address]- 9185 Apr, [facility] [place] [facility] [address] [id number] [place] [address]- 2006 Apr, [facility] [place] [facility] [address] [id number] [place] [address]- 7170 Apr, [facility] [place] [facility] [address] [facility] [id number] [place] [address]- 8945 Apr, [facility] [place] [facility] [address] [id number] [address]- 2812 Apr, [facility] [place] [facility] [address] [id number] [place] [address]- 9801 Apr, [facility] [place] [facility] [address] [id number] [place] [address]- 9606 Mar, [facility] [place] [facility] [address] [id number] [place] [address]- 8626 Mar, [facility] [place] [facility] [address] [id number], [place] [address]- 4544 Mar, [facility] [address] [id number] [place] [address]- 6231 Mar, [facility] [place] [facility] [address] [id number] [place] [address]- 4996 Mar, [facility] [address] [id number] [place] [address]- 7924 Mar, [facility] [place] [facility] [address] [id number] [place] [address]- 5179 Mar, [facility] [address] [id number] [place] [address]- 2031 Mar, [facility] [address] [id number] [place] [address]- 8506 Mar, [facility] [address] [id number] [place] [address]- 8424 Mar, [facility] [place] [facility] [address] [id number] [place] [address]- 2348 Mar, [facility] [address] [id number] [place] [address]- 8034 Feb, [facility] [place] [facility] [address] [id number] [place] [address]- 9034 Feb, [facility] [address] [id number], [place] [address]- 3709 Feb, [facility] [place] [facility] [address] [id number], [place] [address]- 4420 Feb, [facility] [place] [facility] [address] [id number], [place] [address]- 9762 Feb, [facility] [place] [facility] [address] [id number], [place] [address]- 8757 Feb, [facility] [place] [facility] [address] [id number] [place] [address]- 8120 15 Feb, 2013 [facility] [place] [facility] [address] [id number] [place] [address]- 7921 14 Feb, 2013 [facility] [place] [facility] [address] [id number] [place] [address]- 9517 14 Feb, 2013 [facility] [place] [facility] [address] [id number] [place] [address]- 3257 13 Feb, 2013 [facility] [place] [facility] [address] [id number] [place] [address]- 5181 13 Feb, 2013 [facility] [place] [facility] [address] [id number] [place] [address]- 1788 12 Feb, 2013 [facility] [place] [facility] [address] [id number] [place] [address]- 0007 Feb, [facility] [place] [facility] [address] [id number] [place] [address]- 4777 Feb, [facility] [place] [facility] [address] [id number] [place] [address]- 3723 Feb, [facility] [place] [facility] [address] [id number] [place] [address]- 5340 Feb, [facility] [place] [facility] [address] [id number] [place] [address]- 8868 Jan, [facility] [place] [facility] [address] [id number] [place] [address]- 5035 Jan, [facility] [place] [facility] [address] [id number] [place] [address]- 4314 24 Jan, 2013 [facility] [place] [facility] [address] [id number] [place] [address]- 4247 Jan, [facility] [place] [facility] [address] [id number] [place] [address]- 4431 Jan, [facility] [place] [facility] [address] [id number] [place] [address]- 9758 Jan, [facility] [place] [facility] [address] [id number] [place] [address]- 9393 Jan, [facility] [place] [facility] [address] [id number] [place] [address]- 8682 Jan, [facility] [place] [facility] [address] [id number] [place] [address]- 3887 10 Jan, 2013 [facility] [place] [facility] [address] [id number] [place] [address]- 4775 27 Dec, 2012 [facility] [place] [facility] [address] [id number] [place] [address]- 3575 20 Dec, 2012 [facility] [place] [facility] [address] [id number] [place] [address]- 3891 Dec, [facility] [place] [facility] [address] [id number] [place] [address]- 3065 10 Dec, 2012 [facility] [place] [facility] [address] [id number] [place] [address]- 7426 04 Dec, 2012 [facility] [place] [facility] [address] [id number] [place] [address]- 9520 Dec, [facility] [place] [facility] [address] [id number] [place] [address]- 1206 Nov, [facility] [place] [facility] [address] [id number] [place] [address]- 3725 Nov, [facility] [place] [facility] [address] [id number] [place] [address]- 0659 Nov, [facility] [place] [facility] [address] [id number][place] [address]- 0244 Nov, [facility] [place] [facility] [address] [id number] [place] [address]- 2894 Nov, [facility] [place] [facility] [address] [id number] [place] [address]- 1112 Nov, [facility] [place] [facility] [address] [id number] [place] [address]- 2675 Nov, [facility] [place] [facility] [address] [id number] [place] [address]- 6063 15 Nov, 2012 [facility] [place] [facility] [address] [id number] [place] [address]- 5397 14 Nov, 2012 [facility] [place] [facility] [address] [id number] [place] [address]- 8132 Nov, [facility] [place] [facility] [address] [id number] [place] [address]- 4196 Oct, [facility] [place] [facility] [address] [id number] [place] [address]- 1391 Oct, [facility] [place] [facility] [address] [id number] [place] [address]- 8489 Oct, [facility] [place] [facility] [address] [id number] [place] [address]- 6863 Oct, [facility] [place] [facility] [address] [id number] [place] [address]- 2782 Oct, [facility] [place] [facility] [address] [id number] [place] [address]- 4151 Oct, [facility] [place] [facility] [address] [id number] [place] [address]- 0612 Oct, [facility] [place] [facility] [address] [id number] [place] [address]- 0220 Oct, [facility] [place] [facility] [address] [id number] [place] [address]- 6542 Sep, [facility] [place] [facility] [address] [id number] [place] [address]- 0540 Sep, [facility] [place] [facility] [address] [id number] [place] [address]- 8177 Sep, [facility] [place] [facility] [address] [id number] [place] [address]- 3345 Sep, [facility] [place] [facility] [address] [id number] [place] [address]- 9397 Sep, [facility] [place] [facility] [address] [id number] [place] [address]- 6714 Sep, [facility] [address] [id number] [place] [address]- 7085 Sep, [facility] [address] [id number] [place] [address] Sep, [facility] [address] [id number] [place] [address] August, [facility] [address] [id number] [place] [address] August, [facility] [address] [id number] [place] [address] August, [facility] [address] [id number] [place] [address] August, [facility] [address] [id number] [place] [address] August, [facility] [address] [id number] [place] [address] Jul, [facility] [address] [id number] [place] [address] Jul, [facility] [address] [id number] [place] [address] Jul, [facility] [address] [id number] [place] [address] Jul, [facility] [address] [id number] [place] [address] Jul, [facility] [place] [facility] [address] [id number] [place] [id number] Jun, [facility] [place] [facility] [address] [id number] [place] [address] Jun, [facility] [address] [id number] [place] [address] 15 Jun, 2012 [facility] [address] [id number] [place] [address] 14 Jun, 2012 [facility] [place] [facility] [address] [id number] [place] [address] Jun, [facility] [place] [facility] [address] [id number] [place] [address] Jun, [facility] [place] [facility] [address] [id number] [place] [address] 08 Jun, 2012 [facility] [place] [facility] [address] [id number] [place] [address] Jun, [facility] [place] [facility] [address] [id number] [place] [address] Jun, [facility] [place] [facility] [address] [id number] [place] [address] May, [facility] [place] [facility] [address] [id number] [place] [address] May, [facility] [place] [facility] [address] [id number] [place] [address] May, [facility] [place] [facility] [address] [id number] [place] [address] May, [facility] [place] [facility] [address] [id number] [address] Apr, [facility] [place] [facility] [address] [id number] [place] [address] Apr, [facility] [place] [facility] [address] [id number] [place] [address]60 Apr, [facility] [place] [facility] [address] [id number] [place] [address] Apr, [facility] [place] [facility] [address] [id number] [place] [address] Apr, [facility] [place] [facility] [address] [id number] [place] [address]- [address] Apr, [facility] [address] [id number] [place] [address] Apr, [facility] [address] [id number] [place] [address] Mar, [facility] [address] [place] [id number] Mar, [facility] [address] [id number] [place] [address] Mar, [facility] [address] [id number] [place] [address] Mar, [facility] [address] [id number] [place] [address] Mar, [facility] [address] [id number] [place] [address] Mar, [facility] [address] [id number] [place] [address] Mar, [facility] [address] [id number] [place] [address]- [address] Mar, [facility] [address] [id number] [place] [address]- 7075 Mar, [facility] [address] [id number] [place] [address]34 Mar, [facility] [address] [id number] [place] [address]- [address]85 Mar, [facility] [address] [id number] [place] [address]- [address]17 Mar, [facility] [address] [id number] [place] [address]54 Mar, [facility] [address] [id number] [place] [address]- [address] Mar, [facility] [place] [facility] [address] [id number] [place] [address] Mar, [facility] [place] [facility] [address] [id number] [place] [address]- [address] Mar, [facility] [place] [facility] [address] [id number] [place] [address]- [address] Mar, [facility] [place] [facility] [address] [id number] [place] [address] Feb, [facility] [place] [facility] [address] [id number] [place] [address]- [address] Feb, [facility] [place] [facility] [address] [id number] [place] [address] Feb, [facility] [place] [facility] [address] [id number] [place] [address]- [address]35 Feb, [facility] [place] [facility] [address] [id number] [place] [address] Feb, [facility] [place] [facility] [address] [id number] [place] [address] Feb, [facility] [place] [facility] [address] [id number] [place] [address]- [address]185 Feb, [facility] [place] [facility] [address] [id number] [place] [address]- [address] Feb, [facility] [place] [facility] [address] [id number] [place] [address]- 3110 Feb, [facility] [place] [facility] [address] [id number] [place] [address]- 2633 Feb, [facility] [place] [facility] [address] [id number] [place] [address]- [address]26 Feb, [facility] [place] [facility] [address] [id number] [place] [address]- [address]77 Feb, [facility] [place] [facility] [address] [id number] [address] Feb, [facility] [place] [facility] [address] [id number] [place] [address] Feb, [facility] [place] [facility] [address] [id number] [place] [address]- [address] Feb, [facility] [place] [facility] [address] [facility] [id number] [place] [address] Feb, [facility] [place] [facility] [address] [id number] [place] Jan, [facility] [place] [facility] [address] [id number] [place] [address] Jan, [facility] [place] [facility] [address] [id number] [place] [address] 288[address] Jan, [facility] [place] [facility] [address] [id number] [place] [address] Jan, [facility] [place] [facility] [address] [id number], [place] [address] Jan, [facility] [place] [facility] [address] [id number], [place] [address] Jan, [facility] [place] [facility] [address] [id number], [place] [address] 6[address] Jan, [facility] [place] [facility] [address] [id number] [address] 6[address] Jan, [facility] [place] [facility] [address] [id number], [place] [address] 8[address] Jan, [facility] [place] [facility] [address] [id number], [place] [address] 9[address] Jan, [facility] [place] [facility] [address] [facility] [id number], [place] [address] Jan, [facility] [place] [facility] [address] [facility] [id number], [place] [address] Jan, [facility] [place] [facility] [address] [id number] [place] [address] 4098 11 Jan, 2012 [facility] [place] [facility] [address] [id number] [place] [address] 0854 11 Jan, 2012 [facility] [place] [facility] [address] [id number] [place] [address] 3356 08 Jan, 2012 [facility] [place] [facility] [address] [id number] [place] [address]- 6580 05 Jan, 2012 [facility] [place] [facility] [address] [id number] [place] [address]- 7499 04 Jan, 2012 [facility] [place] [facility] [address] [id number] [place] [address]- 6567 21 Dec, 2011 [facility] [place] [facility] [address] [id number] [place] [address]- 5842 20 Dec, 2011 [facility] [place] [facility] [address] [id number] [place] [address]- 6954 18 Dec, 2011 [facility] [place] [facility] [address] [id number] [place] [address]- 0710 18 Dec, 2011 [facility] [place] [facility] [address] [id number] [place] [address]- 5880 10 Dec, 2011 [facility] [place] [facility] [address] [facility] [id number] [place] [address]- 2540 10 Dec, 2011 [facility] [place] [facility] [address] [id number] [place] [address] 2546 10 Dec, 2011 [facility] [place] [facility] [address] [id number] [place] [address]- 2544 07 Dec, 2011 [facility] [place] [facility] [address] [id number] [place] [address]- 2489 30 Nov, 2011 [facility] [place] [facility] [address] [id number] [place] [address]- 2547 Nov, [facility] [place] [facility] [address] [id number] [place] [address] 4501 Nov, [facility] [place] [facility] [address] [id number] [place] [address]- 8863 Nov, [facility] [place] [facility] [address] [id number] [place] [address]- 4279 Nov, [facility] [place] [facility] [address] [id number] [place] [address]- 1238 Nov, [facility] [place] [facility] [address] [id number] [place] [address]- 7823 Oct, [facility] [place] [facility] [address] [id number] [place] [address] 0603 Oct, [facility] [place] [facility] [address] [id number] [place] [address]- 7380 Oct, [facility] [place] [facility] [address] [id number] [place] [address]- 4072 Oct, [facility] [place] [facility] [address] [id number] [place] [address]- 9874 Oct, [facility] [place] [facility] [address] [id number] [place] [address]- 3693 Oct, [facility] [place] [facility] [address] [id number] [place] [address]- 5871 Oct, [facility] [place] [facility] [address] [id number] [place] [address] 9429 Sep, [facility] [place] [facility] [address] [id number] [place] [address] 4862 Sep, [facility] [place] [facility] [address] [id number] [place] [address] 5916 Sep, [facility] [place] [facility] [address] [id number] [place] [address] 8960 Sep, [facility] [place] [facility] [address] [id number] [place] [address]- 7097 Sep, [facility] [place] [facility] [address] [id number] [place] [address]- 2498 15 Sep, 2011 [facility] [address] [id number] [place] [address]- 6458 14 Sep, 2011 [facility] [place] [facility] [address] [id number] [place] [address] 2598 Sep, [facility] [place] [facility] [address] [id number] [place] [address]- 1049 05 Sep, 2011 [facility] [place] [facility] [address] [id number] [place] [address]- 4004 04 Sep, 2011 [facility] [place] [facility] [address] [id number] [place] [address]- 8378 August, [facility] [place] [facility] [address] [id number] [place] [address]- 6214 August, [facility] [address] [id number] [place] [address] 1988 August, [facility] [place] [facility] [address] [id number] [place] [address] 5476 August, [facility] [place] [facility] [address] [id number] [place] [address] 2816 August, [facility] [place] [facility] [address] [id number] [place] [address] 7764 Jul, [facility] [place] [facility] [address] [id number] [place] [address] 8081 Jul, [facility] [place] [facility] [address] [id number] [place] [address]- 2351 25 Jul, 2011 [facility] [place] [facility] [address] [id number] [place] [address]- 6519 17 Jul, 2011 [facility] [place] [facility] [address] [id number] [place] [address]- 3864 11 Jul, 2011 [facility] [place] [facility] [address] [facility] [id number] [place] [address] 5533 Jul, [facility] [place] [facility] [address] [id number] [place] [address] 9733 Jul, [facility] [place] [facility] [address] [id number] [place] [address]- 9664 Jun, [facility] [place] [facility] [address] [id number] [place] [address] 7156 Jun, [facility] [place] [facility] [address] [id number] [place] [address]- 6390 Jun, [facility] [place] [facility] [address] [id number] [place] [address]- 5879 Jun, [facility] [place] [facility] [address] [id number] [place] [address] 5153 Jun, [facility] [place] [facility] [address] [id number] [place] [address]- 0398 May, [facility] [place] [facility] [address] [id number] [place] [address]- 6058 May, [facility] [place] [facility] [address] [id number] [place] [address]- 5542 May, [facility] [place] [facility] [address] [id number] [place] [address]- 5169 May, [facility] [place] [facility] [address] [id number] [place] [address] 8921 May, [facility] [place] [facility] [address] [id number] [place] [address]- 4672 May, [facility] [place] [facility] [address] [id number] [place] [address]- 6167 Apr, [facility] [place] [facility] [address] [id number] [place] [address]- 6136 Mar, [facility] [place] [facility] [address] [id number] [place] [address]- 9165 Feb, [facility] [place] [facility] [address] [id number], [place] [address] 4340 07 Feb, 2011 [facility] [place] [facility] [address] [id number] [place] [address]- 7943 Feb, [facility] [place] [facility] [address] [id number] [place] [address]68 Feb, [facility] [place] [facility] [address] [id number] [place] [address]- 1601 31 Jan, 2011 [facility] [place] [facility] [address] [id number] [place] [address]- 4384 27 Jan, 2011 [facility] [place] [facility] [address] [id number] [place] [address]- 8089 Jan, [facility] [place] [facility] [address] [id number] [place] [address]- 3835 24 Jan, 2011 [facility] [place] [facility] [address] [id number] [place] [address]- 5402 14 Jan, 2011 [facility] [place] [facility] [address] [id number] [place] [address]- 4006 Dec, [facility] [place] [facility] [address] [id number] [place] [address]- 3632 Oct, [facility] [place] [facility] [address] [id number] [place] [address]- 0639 August, [facility] [place] [facility] [address] [id number], [place] [address]- 5596 29 Mar, 2010 [facility] [place] [facility] [address] [id number] [place] [address]- 2633 27 Mar, 2010 [facility] [place] [facility] [address] [id number] [place] [address]- 0015 16 Mar, 2010 [facility] [place] [facility] [address] [id number] [place] [address]70 15 Mar, 2010 [facility] [place] [facility] [address] [id number] [place] [address]- 0234 15 Mar, 2010 [facility] [place] [facility] [address] [id number] [place] [address]- 9302 08 Mar, 2010 [facility] [address] [id number] [place] [address]- 4515 Mar, [facility] [place] [facility] [address] [id number] [place] [address]- 2838 Feb, [facility] [address] [id number] [place] [address]- 9801 24 Feb, 2010 [facility] [place] [facility] [address] [id number] [place] [address]- 3271 15 Feb, 2010 [facility] [address] [id number] [place] [address]- 1326 Jan, [facility] [place] [facility] [address] [id number] [place] [address]- 6548 Jan, [facility] [address] [id number] [place] [address]- 4892 Jan, [facility] [address] [id number] [place] [address]- 1255 Nov, [facility] [place] [facility] [address] [id number] [place] [address]- 5433 Sep, [facility] [address] [facility] [id number] [place] [address]- 2859 August, [facility] [place] [facility] [address] [id number] [place] [address]- 8753 30 Mar, 2009 [facility] [place] [facility] [address] [id number] [place] [address]- 3808 07 Mar, 2009 [facility] [place] [facility] [address] [id number] [place] [address]- 2160 17 Feb, 2009 [facility] [place] [facility] [address] [id number] [place] [address]- 1062 10 Feb, 2009 [facility] [place] [facility] [address] [id number] [place] [address]- 9649 Feb, [facility] [id number], [place] [address]- 8493 Feb, [facility] [id number], [place] [address]- 7238 Feb, [facility] [id number], [place] [address]- 8540 Jan, [facility] [id number], [place] [address]- 1144 Jan, [facility] [id number], [place] [address]- 8665 Jan, [facility] [id number] [place] [address]- 6316 Jan, [facility] [id number], [place] [address]- 1059 Nov, [facility] [id number], [place] [address]- 4624 Sep, [facility] [id number], [place] [address]- 6927 August, [facility] [id number], [place] [address]- 1406 Jul, [facility] [id number], [place] [address]- 4321 May, IMMUNIZATIONS No Known Immunizations SOCIAL HISTORY [...] Knee Surgery 07/16/17 Hospitalization History [facility]- left hand/wrist swelling 10/09/2017
--- OUTSIDE RECORDS SUMMARY | 2018-02-10 11:08 | XMS REPORT ---
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 Active 73387256 Problem Colon polyp K63.5 Active 04685021 Problem Screening breast examination Z12.39 Active 877693140 Problem Bilateral low back pain without sciatica M54.5 Active 603928104 Problem Postmenopausal Z78.0 Active 35454055 Problem Essential tremor G25.0 Active 26507346 Problem Osteopenia M85.80 Active 811675239 Problem Hyperlipidemia E78.5 Active 79348844 Problem Cigarette nicotine dependence without complication F17.210 Active 07391984 Problem Vascular dementia without behavioral disturbance F01.50 Active [id number] Problem Arthritis M19.90 Active 4642625 Problem Chronic atrial fibrillation I48.2 Active 486220484 Problem Dementia without behavioral disturbance, unspecified dementia type F03.90 Active 28241786 Problem Other chronic pancreatitis K86.1 Active 127126804 Problem Xeroderma Q80.9 Active 42026681 Problem Chronic obstructive pulmonary disease with acute lower respiratory infection J44.0 Active 826724944 Problem Type 2 diabetes mellitus with diabetic neuropathy, without long-term current use of insulin E11.40 Active 39455573 Problem Atherosclerosis of [place] artery of both lower extremities with intermittent claudication I70.213 Active 239512974848607 Problem Hammertoe of right foot M20.41 Active 385309334 Problem Hammertoe of left foot M20.42 Active 620016518 Problem Migraine without aura and with status migrainosus, not intractable G43.001 Active 141602311 Problem Migraine without aura and without status migrainosus, not intractable G43.009 Active 372085456 Problem Major depressive disorder, recurrent episode, moderate F33.1 Active 803417793 Problem Unspecified psychosis F29 Active 38937410 Problem Cervicalgia M54.2 Active 6349595821948 Problem Diabetic polyneuropathy associated with type 2 diabetes mellitus E11.42 Active 17006562 Problem COPD (chronic obstructive pulmonary disease) J44.9 Active 52290820 Problem Atherosclerotic heart disease of [place]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 I25.118 Active 4445619266876 Problem Gastroparesis K31.84 Active 117605704 Problem Stress incontinence of urine N39.3 Active 13327250 Problem Osteoporosis M81.0 Active 79722068 Problem Controlled type 2 diabetes mellitus without complication, without long -term current use of insulin E11.9 Active 194106631 Problem Barretts esophagus K22.70 Active 765427365 Problem Chronic fatigue R53.82 Active 94881376 Problem History of common bile duct surgery Z98.89 Active 255558490 Problem Bipolar affective disorder, currently depressed, moderate F31.32 Active 475646451 Problem Generalized anxiety disorder F41.1 Active 574659104 Problem Gastroesophageal reflux disease, esophagitis presence not specified K21.9 Active 395553189 Problem Coronary artery disease involving [place] coronary artery of [place] heart with other form of angina pectoris I25.118 Active 9775387765144 Problem Postconcussion syndrome F07.81 Active 70988036 Problem Chronic pain syndrome G89.4 Active 264395169 Problem Type 2 diabetes mellitus with diabetic peripheral angiopathy without gangrene E11.51 Active 054858389 Problem Paroxysmal atrial fibrillation I48.0 Active 668355545 Problem Unspecified atherosclerosis of [place] arteries of extremities, unspecified extremity I70.209 Active 148155655710321 Problem Acute exacerbation of chronic obstructive pulmonary disease (COPD) J44.1 Active 961462583 Problem Crohn''s disease without complication, unspecified gastrointestinal tract location K50.90 Active 15046543 ALLERGIES No Information ENCOUNTERS Encounter Location Date Diagnosis [facility] [address] [facility] [id number] [address] Feb, [facility] [address] [facility] [id number], [place] [address] Dec, [facility] [address] [facility] [id number], [place] [address] Dec, High risk medication use Z79.899 [facility] [address] [address] 7[address] 25 Dec, 2017 [facility] [address] [place] [id number] [place] [address] 00780- 8082 24 Dec, 2017 [facility] [address], [place] [address] 7256 19 Dec, 2017 [facility] [id number] [place] [address] 55888- 7682 19 Dec, 2017 [facility] [id number] [place] [address] 91905- 7071 18 Dec, 2017 [facility] [id number] [place] [address] 48254- 3531 14 Dec, 2017 [facility] [id number] [place] [address] 08446- 5159 14 Dec, 2017 [facility] [id number] [place] [address] 67996- 5986 13 Dec, 2017 [facility] [address] [address] 8321 Dec, Type 2 diabetes mellitus with diabetic peripheral angiopathy without gangrene E11.51 ; Contusion of face, initial encounter S00.83XA and Bronchitis J40 [facility] [address], [place] [address] 8618 Dec, [facility] [id number] [place] [address] 15666- 4032 06 Dec, 2017 [facility] [address], [place] [address] 2149 Nov, [facility] [address], [place] [address] 4291 Nov, Onychomycosis B35.1 ; Hammertoe of left foot M20.42 ; Hammertoe of right foot M20.41 and Type 2 diabetes mellitus with diabetic neuropathy, without long-term current use of insulin E11.40 [place] [id number] [place] [address] 69826- 9648 Nov, [place] [address] [place] [id number] [place] [address] 05521- 7252 Nov, Bronchitis J40 [facility] [id number] [place] [address] 22966- 8108 Oct, [place] [address] [place] [id number] [place] [address] 14595- 8608 Oct, Bipolar affective disorder, currently depressed, moderate F31.32 ; Vascular dementia without behavioral disturbance F01.50 and Generalized anxiety disorder F41.1 [place] [address] [place] [id number] [place] [address] 30608- 7232 Oct, [place] [address] [place] [id number] [place] [address] 92030- 9984 Oct, [place] [address] [place] [id number] [place] [address] 35723- 9796 Oct, Edema of both legs R60.0 [place] [address] [place] [id number] [place] [address] 25146- 4217 Oct, [place] [address] [place] [id number] [place] [address] 31380- 5230 Sep, [place] [address] [place] [id number] [place] [address] 28250- 0518 Sep, [place] [address] [place] [id number] [place] [address] 87049- 5742 Sep, [place] [address] [place] [address] 90353- 8303 18 Sep, 2017 Encounter for well woman exam with routine gynecological exam Z01.419 ; Screening for STDs (sexually transmitted diseases) Z11.3 ; Screening breast examination Z12.31 and Overweight (BMI 25.0-29.9) E66.3 [place] [id number] [place] [address] 29495- 7264 Sep, [facility] [address] [address]79 Sep, [facility] [id number] [place] [address] 150692- 4953 Sep, [facility] [id number] [place] [address] 571178- 4237 August, [facility] [id number] [place] [address] 76341- 5499 August, [facility] [id number] [place] [address] 97867- 9665 August, Type 2 diabetes mellitus with diabetic neuropathy, without long-term current use of insulin E11.40 and Sprain of right ankle, unspecified ligament, initial encounter S93.401A [facility] [id number] [place] [address] 95152- 6537 August, [facility] [address] [id number] [address] 5418 August, [facility] [id number] [place] [address] 48840- 9369 August, [facility] [address], [place] [address]- 9991 August, Gastroesophageal reflux disease, esophagitis presence not specified K21.9 [facility] [address], [place] [address]- 4214 August, [facility] [address] 4496 August, [facility] [address] [address] August, [facility] [address] [address]117 August, Type 2 diabetes mellitus with diabetic neuropathy, without long-term current use of insulin E11.40 and Elevated liver enzymes R74.8 [facility] [id number] [place] [address] 81096- 9162 Jul, [facility] [address] 64728- 0709 Jul, Cough R05 [facility] [id number] [place] [address] 32148- 4292 Jul, [facility] [address] 16171- 6742 Jul, [facility] [id number] [place] [address] 15260- 2852 Jul, Bipolar affective disorder, currently depressed, moderate F31.32 ; Vascular dementia without behavioral disturbance F01.50 and Generalized anxiety disorder F41.1 [facility] [id number] [place] [address] 11257- 9402 Jul, [facility] [id number] [place] [address] 24322- 3894 Jul, Type 2 diabetes mellitus with diabetic neuropathy, without long-term current use of insulin E11.40 and Elevated liver enzymes R74.8 [facility] [id number] [place] [address] 60191- 4348 Jul, [facility] [id number] [place] [address] 51712- 4978 Jul, [facility] [id number] [place] [address] 91734- 7881 17 Jul, 2017 [facility] [id number] [place] [address] 71260- 1158 Jul, Post-menopausal Z78.0 [facility] [id number] [place] [address] 70287- 7886 Jul, Stress incontinence of urine N39.3 [facility] [id number] [place] [address] 25304- 0395 Jul, [facility] [id number] [place] [address] 48932- 2809 Jul, [facility] [id number] [place] [address] 07910- 6352 Jul, Stress incontinence of urine N39.3 and Cough R05 [facility] [id number] [place] [address] 94474- 8340 Jul, [facility] [id number] [place] [address] 37680- 7878 Jul, [facility] [id number] [place] [address] 42656- 3582 Jul, [facility] [id number] [place] [address] 23567- 2585 Jul, Gastroesophageal reflux disease, esophagitis presence not specified K21.9 [facility] [id number] [place] [address] 60822- 2462 Jun, Diabetic polyneuropathy associated with type 2 diabetes mellitus E11.42 [facility] [id number] [place] [address] 27732- 7663 Jun, Diabetic polyneuropathy associated with type 2 diabetes mellitus E11.42 ; Coronary artery disease involving [place] coronary artery of [place] heart with other form of angina pectoris I25.118 and Paroxysmal atrial fibrillation I48.0 [facility] [id number] [place] [address] 31604- 9466 Jun, [facility] [id number] [place] [address] 99832- 4297 Jun, [facility] [id number] [place] [address] 40499- 1537 Jun, Gastroenteritis K52.9 [facility] [id number] [place] [address] 92633- 2986 Jun, Gastroenteritis K52.9 [facility] [id number] [place] [address] 41693- 4603 Jun, [place] [id number] [place] [address] 68954- 3666 Jun, [place] [address] [id number] [place] [address] 83583- 5589 Jun, Sprain of right ankle, unspecified ligament, [...] location K50.90 [facility] [id number] [place] [address] 81898 -2672 17 Jun, 2017 Cough R05 and Chronic obstructive pulmonary disease with acute lower respiratory infection J44.0 [place] [address] [place] [id number] [place] [address] 96772- 3105 16 Jun, 2017 [place] [address] [place] [id number] [place] [address] 39686- 0290 15 Jun, 2017 Coughing R05 ; Unspecified atherosclerosis of [place] arteries of extremities, unspecified extremity I70.209 ; Type 2 diabetes mellitus with diabetic peripheral angiopathy without gangrene E11.51 ; Crohn''s disease without complication, unspecified gastrointestinal tract location K50.90 ; Other chronic pancreatitis K86.1 and Chronic atrial fibrillation I48.2 [facility] [id number] [place] [address] 32920 -8800 Jun, [place] [address] [place] [id number] [place] [address] 57636- 4425 Jun, Bipolar affective disorder, currently depressed, moderate F31.32 ; Vascular dementia without behavioral disturbance F01.50 and Generalized anxiety disorder F41.1 [place] [id number] [place] [address] 80204- 3260 May, Generalized anxiety disorder F41.1 [place] [address] [place] [id number] [place] [address] 00184- 8202 May, [facility] [id number] [place] [address] 69155- 6269 May, [facility] [id number] [place] [address] 16152- 8344 May, Coughing R05 [place] [address] 47378- 7049 May, [facility] [address] 16720- 5106 May, Bipolar affective disorder, currently depressed, moderate F31.32 ; Vascular dementia without behavioral disturbance F01.50 and Generalized anxiety disorder F41.1 [place] [address] 97913- 9590 Apr, Generalized anxiety disorder F41.1 [place] [address] 22033- 3453 Apr, [place] [address] [place] [id number] [place] [address] 82842- 0755 Apr, Vascular dementia without behavioral disturbance F01.50 ; Generalized anxiety disorder F41.1 and Bipolar affective disorder, currently depressed, moderate F31.32 [place] [address] [place] [id number] [place] [address] 16349- 9080 Apr, Generalized anxiety disorder F41.1 [facility] [id number] [place] [address] 66562 -4934 Apr, Cough R05 and Acute exacerbation of chronic obstructive pulmonary disease (COPD) J44.1 [place] [address] 93677- 0238 Apr, [facility] [id number] [place] [address] 38965 -5269 Mar, Cough R05 and Cigarette nicotine dependence without complication F17.210 [place] [address] 10656- 8246 Mar, [place] [address] [place] [id number] [place] [address] 68929- 5461 Feb, Generalized anxiety disorder F41.1 ; Major depressive disorder, recurrent episode, moderate F33.1 ; Vascular dementia without behavioral disturbance F01.50 and Unspecified psychosis F29 [place] [address] [place] [id number] [place] [address] 30432- 4153 Feb, [place] [address] [id number] [place] [address] 35088- 9084 Feb, [place] [address] [place] [id number] [place] [address] 23805- 1278 Feb, Generalized anxiety disorder F41.1 [place] [address] [id number] [place] [address] 61747- 4637 Feb, Generalized anxiety disorder F41.1 [place] [address] [place] [id number] [place] [address] 54608- 4334 Feb, Dizziness R42 ; Chronic fatigue R53.82 ; Postconcussion syndrome F07.81 ; Fall, initial encounter W19.XXXA and Disorientation R41.0 [place] [address] [place] [id number] [place] [address] 68610- 4478 Feb, Postconcussion syndrome F07.81 ; Injury of head, initial encounter S09.90XA ; Fall, initial encounter W19.XXXA ; Disorientation R41.0 and Acute cystitis with hematuria N30.01 [place] [address] [place] [address] 35941- 6730 Jan, Gastroesophageal reflux disease, esophagitis presence not specified K21.9 ; Post-menopausal Z78.0 and Migraine without aura and without status migrainosus, not intractable G43.009 [place] [address] [place] [id number] [place] [address] 10011- 4411 Jan, [place] [address] [place] [id number] [place] [address] 80921- 8912 Jan, Generalized anxiety disorder F41.1 ; Major depressive disorder, recurrent episode, moderate F33.1 ; Vascular dementia without behavioral disturbance F01.50 and Unspecified psychosis F29 [place] [address] [place] [id number] [place] [address] 99930- 7963 Jan, Pneumonia of left lower lobe due to infectious organism J18.1 [place] [address] [place] [id number] [place] [address] 12161- 7967 Jan, Migraine without aura and with status migrainosus, not intractable G43.001 [facility] [address] [place] [id number] [place] [address] 66656 -7272 Jan, Migraine without aura and without status migrainosus, not intractable G43.009 [place] [address] [place] [id number] [place] [address] 57568- 4190 Dec, Hematoma T14.8 [place] [address] 54272- 3556 Dec, [facility] [id number] [place] [address] 52886 -7376 Nov, Fatigue, unspecified type R53.83 [place] [address] [id number] [place] [address] 53829- 1525 Nov, Scabies B86 and Coronary artery disease involving [place] coronary artery of [place] heart with other form of angina pectoris I25.118 [place] [address] [place] [id number] [place] [address] 50283- 4493 Nov, [place] [address] [place] [id number] [place] [address] 20763- 7109 Nov, [place] [address] 16052- 4533 Oct, [place] [address] [place] [id number] [place] [address] 25605- 4434 Oct, Generalized anxiety disorder F41.1 and Major depressive disorder, recurrent episode, moderate F33.1 [facility] [address] [address]- 1880 19 Oct, 2016 Cramp of both lower extremities R25.2 [facility] [id number] [place] [address] 45526- 3973 Oct, Leg cramps R25.2 [facility] [id number] [place] [address] 01556- 5436 Oct, Chronic pain syndrome G89.4 [facility] [id number] [place] [address] 49350- 2032 Oct, [facility] [id number] [place] [address] 44644- 8201 Oct, [facility] [id number] [place] [address] 58177- 8176 Oct, Routine gynecological examination Z01.419 and Screening for breast cancer Z12.31 [facility] [id number] [place] [address] 52351- 2091 Sep, Diarrhea R19.7 [facility] [address] [id number] [place] [address] 73619- 2402 Sep, Back pain M54.9 [facility] [id number] [place] [address] 41043- 1998 Sep, [facility] [id number] [place] [address] 14913- 7529 Sep, [facility] [id number] [place] [address] 80430 -0956 August, Xeroderma Q80.9 [facility] [id number] [place] [address] 50114- 5969 August, Dementia without behavioral disturbance, unspecified dementia type F03.90 [facility] [id number] [place] [address] 69087- 1877 August, Chronic pain syndrome G89.4 [place] [id number] [place] [address] 62562- 9188 August, [place] [address] 71830- 7688 August, Hyperlipidemia E78.5 ; Other fatigue R53.83 and Other specified hypotension I95.89 [facility] [address] 32275 -9663 August, Dysuria R30.0 ; Other fatigue R53.83 and Other specified hypotension I95.89 [place] [address] 82654- 2452 August, [place] [address] 53952- 0231 Jul, Pain in left knee M25.562 and Gastroenteritis K52.9 [place] [address] 47457- 6691 Jul, [place] [address] 19587- 0763 Jul, Diarrhea R19.7 [facility] [place] [address] 16693 -7612 Jul, Spider bite, accidental or unintentional, initial encounter T63.301A [place] [address] 96559- 6432 Jul, Primary osteoarthritis of right knee M17.11 and Arthritis M19.90 [place] [address] [place] [id number] [place] [address] 18857- 6133 Jul, Generalized anxiety disorder F41.1 and Major depressive disorder, recurrent episode, moderate F33.1 [place] [address] 90993- 0096 07 Jul, 2016 Type 2 diabetes mellitus with diabetic polyneuropathy E11.42 and Temporal headache R51 [place] [address] 13007- 8580 Jul, Back pain M54.9 [facility] [address] 95582- 8151 Jul, [facility] [address] 94891- 0331 Jul, [facility] [address] 65610- 1605 30 Jun, 2016 Nausea R11.0 [facility] [address] 56435 -6341 Jun, Acute suppurative otitis media of both ears without spontaneous rupture of tympanic membranes, recurrence not specified H66.003 and COPD exacerbation J44.1 [place] [address] 99419- 3530 Jun, Generalized anxiety disorder F41.1 [place] [address] 78250- 8284 16 Jun, 2016 [facility] [address] 72823 -7174 Jun, [facility] [address] 18402 -8222 Jun, Shortness of breath R06.02 and COPD exacerbation J44.1 [place] [address] [address] 10 Jun, 2016 Eczema, unspecified type L30.9 [facility] [address] [address] 09 Jun, 2016 [facility] [address] [address] 24 May, 2016 [place] [address] [address] May, Muscle cramping R25.2 [place] [address] [address] [place] [id number] [place] [address] May, [facility] [address] [place] [id number] [place] [address] Apr, Diarrhea R19.7 [facility] [address] [place] [id number] [place] [phone] Apr, [facility] [address] 86228- 8139 Apr, Chronic pain syndrome G89.4 [place] [address] 21611- 6003 Apr, Cramp of both lower extremities R25.2 and Vascular dementia without behavioral disturbance F01.50 [place] [address] [place] [id number] [place] [address] 64847- 2116 Apr, Type 2 diabetes mellitus with diabetic polyneuropathy E11.42 and Cigarette nicotine dependence without complication F17.210 [place] [address] [id number] [place] [address] 93825- 1300 Mar, Generalized anxiety disorder F41.1 [place] [address] 24403- 2808 Feb, Generalized anxiety disorder F41.1 and Major depressive disorder, recurrent episode, moderate F33.1 [place] [address] [id number] [place] [address] 25578- 2722 Feb, [facility] [id number] [place] [address] 08670 -8932 Feb, Dysuria R30.0 and Acute cystitis with hematuria N30.01 [facility] [address] 38685- 6267 Jan, [facility] [id number] [place] [address] 01524- 6870 Jan, [facility] [address] 68834- 5357 Jan, [facility] [id number] [place] [address] 40239- 8717 Jan, [facility] [id number] [place] [address] 91518 -3873 10 Jan, 2016 Wasp sting, accidental or unintentional, initial encounter T63.461A [facility] [id number] [place] [address] 48605- 2174 06 Jan, 2016 Encounter for immunization Z23 [facility] [address] 70087- 2796 Jan, [facility] [address] 87946- 8584 Jan, [facility] [id number] [place] [address] 29293- 9435 28 Dec, 2015 Generalized anxiety disorder F41.1 and Major depressive disorder, recurrent episode, moderate F33.1 [facility] [id number] [place] [address] 36637- 6723 21 Dec, 2015 Routine gynecological examination Z01.419 ; Postmenopausal Z78.0 ; Screening breast examination Z12.39 ; Osteopenia M85.80 and Breast cancer screening Z12.39 [facility] [id number] [place] [address] 77365- 8240 20 Dec, 2015 [facility] [id number] [place] [address] 58875- 0836 19 Dec, 2015 [facility] [id number] [place] [address] 72725- 7701 16 Dec, 2015 [facility] [id number] [place] [address] 59381- 0213 16 Dec, 2015 [facility] [id number] [place] [address] 38225- 1360 14 Dec, 2015 [facility] [id number] [place] [address] 91341- 7103 06 Dec, 2015 [facility] [id number] [place] [address]- 0119 Nov, [facility] [id number] [place] [address] Nov, Cough R05 ; Other viral agents as the cause of diseases classified elsewhere B97.89 and Acute upper respiratory infection, unspecified J06.9 [facility] [id number] [place] [address]- 2163 Nov, [facility] [address] [place] [id number] [place] [address]- 5854 Nov, [facility] [id number] [place] [address]- 2889 Nov, [facility] [id number] [place] [address]- 9503 Nov, [facility] [id number] [place] [address]- 1191 Nov, [facility] [id number] [place] [address]- 7531 Oct, [facility] [address] [address]- 1038 Oct, [facility] [address], [place] [address]- 0085 Oct, [facility] [address], [place] [address]- 3883 Oct, Chronic pain syndrome G89.4 [facility] [address] [address]- 0757 Sep, Generalized anxiety disorder F41.1 and Major depressive disorder, recurrent episode, moderate F33.1 [facility] [address], [place] [address]- 1752 Sep, [facility] [address], [place] [address]- 1019 Sep, [facility] [id number] [place] [address] 01635- 2113 14 Sep, 2015 Generalized anxiety disorder F41.1 [facility] [address] [address] [id number] [place] [address] 73887- 7793 13 Sep, 2015 Cramp of both lower extremities R25.2 and Cervicalgia M54.2 [place] [address] [id number] [place] [address] 91935- 4522 06 Sep, 2015 Generalized anxiety disorder F41.1 [facility] [address] [place] [id number] [place] [address] 32334- 5320 Sep, [facility] [address] [place] [id number] [place] [address] 60815 -8115 August, Rash R21 ; Itching L29.9 and Allergic response, subsequent encounter T78.40XD [place] [address] [address] [id number] [place] [address] 74067- 7863 August, Primary insomnia F51.01 [facility] [address] [place] [id number] [place] [address] 68850 -0689 August, Rash R21 ; Itching L29.9 and Allergic response, initial encounter T78.40XA [place] [address] [id number] [place] [address] 92829- 2124 August, [place] [address] [place] [address] [id number] [place] [address] 51848- 5348 August, Cramp of both lower extremities R25.2 [place] [address] [place] [address] [id number] [place] [address] 45940- 6324 August, Back pain M54.9 [place] [address] [place] [address] [id number] [place] [address] 43013- 6063 August, [facility] [address] [id number] [place] [address] 17129- 8063 August, [facility] [address] [place] [address] -3649 August, Cramp of both lower extremities R25.2 [facility] [address] [id number] [place] [address] 03669- 5678 August, [facility] [id number] [place] [address] 79857- 4981 August, Syncope R55 ; Paroxysmal atrial fibrillation I48.0 ; Dementia without behavioral disturbance, unspecified dementia type F03.90 and Chronic pain syndrome G89.4 [facility] [id number] [place] [address] 63439- 6188 August, Type 2 diabetes mellitus with diabetic polyneuropathy E11.42 and Syncope R55 [facility] [address] [id number] [place] [address] 91829- 0269 Jul, [facility] [address] [id number] [place] [address] 99606- 3443 Jul, [facility] [id number] [place] [address] 79171- 2417 Jul, [facility] [id number] [place] [address] 44419- 3330 Jul, [facility] [id number] [place] [address] 27834- 9899 Jul, [facility] [id number] [place] [address] 21756- 2502 Jul, UTI (urinary tract infection) N39.0 [facility] [address], [place] [address]- 0413 Jul, [facility] [address] [place] [id number] [place] [address] 33413- 3547 Jul, Major depressive disorder, recurrent episode, moderate F33.1 and Generalized anxiety disorder F41.1 [facility] [address], [place] [address]- 8431 Jul, Generalized anxiety disorder F41.1 [place] [address], [place] [address]- 6833 14 Jul, 2015 Diarrhea R19.7 [facility] [id number] [address]- 0616 14 Jul, 2015 [facility] [address], [place] [address]- 5684 Jun, [facility] [address] [place] [address] [id number] [place] [address] 61024 2546 Jun, Eczema L30.9 [facility] [id number] [place] [address] 86116- 0856 Jun, [facility] [id number] [place] [address] 63171- 2761 Jun, COPD (chronic obstructive pulmonary disease) J44.9 [facility] [id number] [place] [address] 57478- 2660 Jun, [facility] [address], [place] [address]- 1597 Jun, Major depressive disorder, recurrent episode, moderate F33.1 and Generalized anxiety disorder F41.1 [facility] [address], [place] [address]- 6694 May, [facility] [address], [place] [address]- 6092 May, UTI (urinary tract infection) N39.0 [facility] [address], [place] [address]- 6567 May, [facility] [address], [place] [address]- 9524 May, [facility] [address], [place] [address]- 7711 May, [facility] [address], [place] [address]- 9811 May, [facility] [address], [place] [address]- 5519 Apr, Major depressive disorder, recurrent episode, moderate F33.1 and Generalized anxiety disorder F41.1 [facility] [address], [place] [address]- 9970 Apr, COPD (chronic obstructive pulmonary disease) J44.9 [facility] [address] [place] [address] [id number] [place] [address] 71953- 5444 Apr, [facility] [address] [id number] [place] [address] 67640- 5336 Apr, Atrial flutter I48.92 [facility] [address] [place] [id number] [place] [address] 36070- 7449 Apr, [facility] [id number] [place] [address] 00433- 9909 Apr, [facility] [id number] [place] [address] 11723- 6206 Mar, [facility] [id number] [place] [address] 24801- 7200 Mar, [facility] [address] [id number] [address]- 4875 Mar, [facility] [address], [place] [address]- 3328 Mar, Hyperlipidemia E78.5 ; Type 2 diabetes mellitus with diabetic polyneuropathy E11.42 ; Major depressive disorder, recurrent episode, moderate F33.1 and Chronic pain syndrome G89.4 [facility] [address], [place] [address]- 0250 Mar, [facility] [id number] [address]- 9671 Mar, [facility] [address], [place] [address]- 6302 Mar, [facility] [address], [place] [address]- 2447 Mar, [facility] [address] [id number] [place] [address] 22590- 7829 Feb, COPD (chronic obstructive pulmonary disease) J44.9 and Back pain M54.9 [facility] [id number] [place] [address] 12005- 8764 Feb, [facility] [id number] [place] [address] 30027- 9794 Feb, [facility] [id number] [place] [address] 24258- 6195 Feb, [facility] [id number] [place] [address] 53026- 0005 Feb, [facility] [id number] [place] [address] 96575- 9761 Feb, [facility] [id number] [place] [address] 82635- 3954 Feb, [facility] [id number] [place] [address] 28268- 2828 Feb, [facility] [id number] [place] [address] 94239- 5551 Feb, [facility] [id number] [place] [address] 05200- 6745 Feb, Diabetes E11.9 ; Back pain M54.9 and COPD (chronic obstructive pulmonary disease) J44.9 [facility] [address], [place] [address]- 4487 Jan, [facility] [id number] [place] [address] 46203- 9385 Jan, Major depression, recurrent F33.9 and Generalized anxiety disorder F41.1 [facility] [id number] [place] [address] 84452- 8158 Jan, Chronic pain G89.29 [facility] [address], [place] [address]- 7099 Jan, [facility] [id number] [place] [address] 78511- 8274 Jan, [facility] [id number] [place] [address] 09657- 2231 Jan, [facility] [id number] [place] [address] 40674- 2548 Jan, [facility] [id number] [place] [address] 50021- 8935 Jan, Nicotine dependence F17.200 [facility] [id number] [place] [address] 38605- 5429 Jan, Nicotine dependence F17.200 and Back pain M54.9 [facility] [id number] [place] [address] 86807- 8951 Jan, [facility] [id number] [place] [address] 12746- 3711 28 Dec, 2014 [facility] [id number] [place] [address] 53902- 8121 25 Dec, 2014 Anxiety, generalized 300.02 and Major depression, recurrent 296.30 [facility] [id number] [place] [address] 47023- 7864 24 Dec, 2014 [facility] [id number] [place] [address] 68389- 8640 21 Sep, 2014 [facility] [id number] [place] [address] 60610- 5455 17 Dec, 2014 [facility] [id number] [place] [address] 31728- 0314 15 Dec, 2014 [facility] [id number] [place] [address] 05503- 2318 14 Dec, 2014 [facility] [address] [place] [address] [place] [address]- 9031 11 Dec, 2014 [facility] [address], [place] [address]- 1594 Dec, [facility] [id number] [place] [address] 78110- 4626 08 Dec, 2014 Skin tear 879.8 [facility] [id number] [place] [address] 88670- 9212 Dec, Routine gynecological examination V72.31 ; Breast cancer screening V76.10 and Family history of breast cancer in first degree relative V16.3 [facility] [id number] [place] [address] 98743- 3700 Dec, [facility] [id number] [place] [address] 94845- 4589 Dec, [facility] [id number] [place] [address] 43800- 9229 Nov, [facility] [id number] [place] [address] 37268- 1157 Nov, [facility] [id number] [place] [address] 91150- 3038 Nov, Poor balance 781.99 and Vascular dementia, uncomplicated 290.40 [facility] [id number] [place] [address] 39277- 7069 Nov, [facility] [id number] [place] [address] 69857- 4336 Nov, Major depression, recurrent 296.30 and Anxiety, generalized 300.02 [facility] [id number] [place] [address] 98457- 9211 Nov, [facility] [id number] [place] [address] 78146- 9640 Nov, [facility] [id number] [place] [address] 70643- 7859 Nov, [facility] [address], [place] [address]- 3575 Nov, [facility] [id number] [place] [address] 42152- 6123 Nov, Vascular dementia, uncomplicated 290.40 and Lumbago 724.2 [facility] [id number] [address]- 7004 Nov, [facility] [id number] [place] [address] 30281- 1100 Nov, [facility] [id number] [place] [address] 18840- 8777 Nov, [facility] [id number] [place] [address] 26608- 4971 Oct, [facility] [id number] [place] [address] 40995- 7330 Oct, [facility] [id number] [address]- 9883 Oct, [facility] [id number] [place] [address] 60616- 4348 Oct, COPD (chronic obstructive pulmonary disease) 496 and Hyperlipidemia 272.4 [facility] [address], [place] [address]- 7591 Oct, Major depression, recurrent 296.30 and Anxiety, generalized 300.02 [facility] [address], [place] [address]- 2249 Oct, [facility] [address], [place] [address]- 1714 Oct, [facility] [address], [place] [address]- 6068 Oct, [facility] [id number], [place] [address]- 7806 Sep, Lumbago 724.2 and Anxiety state, unspecified 300.00 [facility] [address], [place] [address]- 8258 Sep, [facility] [id number] [place] [address] 00809- 4278 Sep, [facility] [id number] [address]- 8930 August, [facility] [id number] [place] [address] 44972- 1700 August, Major depression, recurrent 296.30 ; Anxiety, generalized 300.02 and No condition on [place] II V71.09 [facility] [id number] [place] [address] 27734- 0952 August, [facility] [id number] [place] [address] 63722- 2687 August, [facility] [id number] [place] [address] 51117- 8880 Jul, [facility] [id number] [address]- 0221 Jul, [facility] [id number] [place] [address] 22602- 5511 Jul, [facility] [address], [place] [address]- 7180 Jun, [facility] [address], [place] [address]- 0237 Jun, [facility] [address], [place] [address]- 4001 Jun, [facility] [id number] [place] [address], [place] [address]- 5348 Jun, [facility] [address], [place] [address]- 3037 Jun, [facility] [id number] [place] [address] 84468- 0106 23 Jun, 2014 [facility] [place] [facility] [address] [id number] [place] [address]- 9762 23 Jun, 2014 [facility] [place] [facility] [address] [id number] [place] [address]- 6352 17 Jun, 2014 [facility] [place] [facility] [address] [id number] [place] [address]- 8648 13 Jun, 2014 [facility] [place] [facility] [address] [id number] [place] [address]- 5786 13 Jun, 2014 [facility] [place] [facility] [address] [id number] [place] [address]- 8628 10 Jun, 2014 [facility] [place] [facility] [address] [id number] [place] [address]- 8422 10 Jun, 2014 [facility] [place] [facility] [address] [facility] [id number] [place] [address]- 6256 Jun, [facility] [place] [facility] [address] [id number] [place] [address]- 4190 Jun, [facility] [place] [facility] [address] [id number] [place] [address]- 2513 Jun, [facility] [place] [facility] [address] [id number] [place] [address]- 6277 Jun, [facility] [place] [facility] [address] [id number] [place] [address]- 7196 May, 2014 [facility] [place] [facility] [address] [id number] [place] [address]- 4342 May, 2014 [facility] [place] [facility] [address] [id number] [place] [address]- 1832 May, 2014 [facility] [place] [facility] [address] [id number] [place] [address] May, 2014 [facility] [place] [facility] [address] [facility] [id number] [place] [address] May, 2014 [facility] [place] [facility] [address] [id number] [place] [address] May, 2014 [facility] [place] [facility] [address] [id number] [place] [address] May, 2014 [facility] [place] [facility] [address] [id number] [place] [address] May, 2014 [facility] [place] [facility] [address] [id number] [place] [address] May, 2014 [facility] [place] [facility] [address] [id number] [place] [address] May, 2014 [facility] [place] [facility] [address] [id number] [place] [address] May, 2014 [facility] [place] [facility] [address] [facility] [id number] [place] [address]- [address] May, 2014 [facility] [place] [facility] [address] [id number] [place] [address] May, 2014 [facility] [place] [facility] [address] [id number] [place] [address] May, 2014 [facility] [place] [facility] [address] [facility] [id number] [place] [address] Apr, [facility] [place] [facility] [address] [id number] [place] [address] Apr, [facility] [place] [facility] [address] [id number] [place] [address] Apr, [facility] [place] [facility] [address] [id number] [place] [address] Apr, [facility] [place] [facility] [address] [id number] [place] [address] Apr, [facility] [place] [facility] [address] [id number] [place] [address] Apr, [facility] [place] [facility] [address] [id number] [place] [address] Apr, [facility] [address] [id number] [place] [address] Apr, [facility] [place] [facility] [address] [id number] [place] [address] Apr, [facility] [place] [facility] [address] [id number] [place] [address] Apr, [facility] [place] [facility] [address] [id number] [place] [address] Apr, [facility] [place] [facility] [address] [id number] [place] [address] Apr, [facility] [place] [facility] [address] [id number] [place] [address] Mar, [facility] [address] [id number] [place] [address] 31 Mar, 2014 [facility] [place] [facility] [address] [id number] [place] [address] 30 Mar, 2014 [facility] [place] [facility] [address] [id number] [place] [address] 30 Mar, 2014 [facility] [place] [facility] [address] [id number] [place] [address] 29 Mar, 2014 [facility] [place] [facility] [address] [id number] [place] [address] 29 Mar, 2014 [facility] [place] [facility] [address] [id number] [place] [address] 19 Mar, 2014 [facility] [place] [facility] [address] [id number] [place] [address]- [address] Mar, [facility] [place] [facility] [address] [id number] [place] [address] 15 Mar, 2014 [facility] [place] [facility] [address] [id number] [place] [address] 15 Mar, 2014 [facility] [place] [facility] [address] [id number] [place] [address] 15 Mar, 2014 [facility] [place] [facility] [address] [id number] [place] [address] Mar, [facility] [place] [facility] [address] [id number] [place] [address] Mar, [facility] [place] [facility] [address] [id number] [place] [address] Mar, [facility] [place] [facility] [address] [id number] [place] [address] Mar, [facility] [place] [facility] [address] [id number] [place] [address] 3596 Mar, [facility] [place] [facility] [address] [id number] [place] [address] 0238 Mar, [facility] [place] [facility] [address] [id number] [place] [address] 3197 Mar, [facility] [place] [facility] [address] [id number] [place] [address] 0474 Mar, [facility] [place] [facility] [address] [id number] [place] [address] 2749 Mar, [facility] [place] [facility] [address] [id number] [place] [address]- 3118 Feb, [facility] [place] [facility] [address] [id number] [place] [address] 3039 Feb, [facility] [place] [facility] [address] [id number] [place] [address]- 6768 Feb, [facility] [place] [facility] [address] [id number] [place] [address]- 0625 Feb, [facility] [place] [facility] [address] [id number] [place] [address]- 4757 Feb, [facility] [place] [facility] [address] [id number] [place] [address]- 2830 Feb, [facility] [place] [facility] [address] [id number] [place] [address]- 1807 Feb, [facility] [place] [facility] [address] [id number] [place] [address]- 2905 Feb, [facility] [place] [facility] [address] [id number] [place] [address]- 3047 Feb, [facility] [place] [facility] [address] [id number], [place] [address] Feb, [facility] [place] [facility] [address] [id number] [place] [address]- 9403 Feb, [facility] [place] [facility] [address] [id number], [place] [address]- 3[address] Feb, [facility] [place] [facility] [address] [id number] [place] [address]- 0300 Feb, [facility] [place] [facility] [address] [id number], [place] [address]- 2678 Feb, [facility] [place] [facility] [address] [id number], [place] [address]- 4278 Feb, [facility] [place] [facility] [address] [id number], [place] [address]- 5937 Feb, [facility] [place] [facility] [address] [id number], [place] [address] Feb, [facility] [place] [facility] [address] [id number], [place] [address] 52[address] Jan, [facility] [place] [facility] [address] [id number], [place] [address]- 4[address] Jan, [facility] [place] [facility] [address] [id number], [place] [address]- 1290 Jan, [facility] [place] [facility] [address] [id number], [place] [address]- 6386 Jan, [facility] [place] [facility] [address] [id number] [place] [address]- 5802 Jan, [facility] [place] [facility] [address] [id number] [place] [address]- 8381 Jan, [facility] [place] [facility] [address] [id number] [place] [address]- 6322 Jan, [facility] [place] [facility] [address] [id number] [place] [address]- 4487 Jan, [facility] [place] [facility] [address] [id number] [place] [address]- 2682 Jan, [facility] [place] [facility] [address] [id number] [place] [address]- 8958 Jan, [facility] [place] [facility] [address] [id number] [place] [address]- 4541 Jan, [facility] [place] [facility] [address] [id number] [place] [address]- 5426 Dec, [facility] [place] [facility] [address] [id number] [place] [address]- 6383 Dec, [facility] [place] [facility] [address] [id number] [place] [address]- 0564 Nov, [facility] [place] [facility] [address] [id number] [place] [address]- 6769 Nov, [facility] [place] [facility] [address] [id number] [place] [address]- 9295 Nov, [facility] [place] [facility] [address] [id number] [place] [address]- 8402 Nov, [facility] [place] [facility] [address] [id number] [place] [address]- 9547 Nov, [facility] [place] [facility] [address] [id number] [place] [address]- 8874 Nov, [facility] [place] [facility] [address] [id number] [place] [address]- 3834 Nov, [facility] [place] [facility] [address] [id number] [place] [address]- 8936 Oct, 2013 [facility] [place] [facility] [address] [id number] [place] [address]- 2610 Oct, [facility] [place] [facility] [address] [id number] [place] [address]- 5843 Oct, [facility] [place] [facility] [address] [id number] [place] [address]- 4601 Oct, [facility] [place] [facility] [address] [id number] [place] [address]- 1417 Sep, [facility] [place] [facility] [address] [id number] [place] [address]- 3375 Sep, [facility] [place] [facility] [address] [id number] [place] [address]- 0305 Sep, [facility] [place] [facility] [address] [id number] [place] [address]- 7537 Sep, [facility] [place] [facility] [address] [id number] [place] [address]- 4708 Sep, [facility] [place] [facility] [address] [id number] [place] [address]- 8072 Sep, [facility] [place] [facility] [address] [id number] [place] [address]- 0051 Sep, [facility] [place] [facility] [address] [id number] [place] [address]- 4233 Sep, [facility] [place] [facility] [address] [id number] [place] [address]- 1321 Sep, [facility] [place] [facility] [address] [id number] [place] [address]- 3673 Sep, [facility] [place] [facility] [address] [id number] [place] [address]- 6173 05 Sep, 2013 [facility] [place] [facility] [address] [id number] [place] [address]- 2797 Sep, [facility] [place] [facility] [address] [id number] [place] [address]- 4587 Sep, [facility] [place] [facility] [address] [id number] [place] [address]- 4564 Sep, [facility] [place] [facility] [address] [id number] [place] [address]- 9605 August, [facility] [place] [facility] [address] [id number] [place] [address]- 9938 August, [facility] [place] [facility] [address] [id number] [place] [address]- 1661 August, [facility] [place] [facility] [address] [id number] [place] [address]- 5151 August, [facility] [place] [facility] [address] [id number] [place] [address]- 4251 August, [facility] [place] [facility] [address] [id number] [place] [address]- 7892 August, [facility] [place] [facility] [address] [id number] [place] [address]- 0696 August, [facility] [place] [facility] [address] [id number] [place] [address]- 2253 August, [facility] [place] [facility] [address] [id number] [place] [address]- 2209 August, [facility] [place] [facility] [address] [id number] [place] [address]- 2779 August, [facility] [place] [facility] [address] [id number] [place] [address]- 6864 August, [facility] [place] [facility] [address] [id number] [place] [address]- 6660 August, [facility] [place] [facility] [address] [id number] [place] [address]- 1941 August, [facility] [place] [facility] [address] [id number] [place] [address]- 9920 August, [facility] [address] [id number] [place] [address]- 9769 August, [facility] [place] [facility] [address] [id number] [place] [address]- 7366 August, [facility] [address] [id number] [place] [address]- 1044 August, [facility] [address] [id number] [place] [address]- 7966 August, [facility] [address] [id number] [place] [address]- 0834 August, [facility] [address] [id number] [place] [address]- 5184 Jul, [facility] [address] [id number] [place] [address]- 5742 Jul, [facility] [address] [id number] [place] [address]- 9960 Jul, [facility] [address] [id number] [place] [address]- 2470 Jul, [facility] [address] [id number] [place] [address]- 8332 Jun, [facility] [place] [facility] [address] [id number] [place] [address]- 0647 Jun, [facility] [place] [facility] [address] [id number] [place] [address]- 8131 Jun, [facility] [place] [facility] [address] [id number] [place] [address]- 4736 Jun, [facility] [place] [facility] [address] [id number] [place] [address]- 5226 Jun, [facility] [place] [facility] [address] [id number] [place] 2708 Jun, [facility] [place] [facility] [address] [id number] [place] [address]- 0681 14 Jun, 2013 [facility] [place] [facility] [address] [id number] [place] [address]- 9968 14 Jun, 2013 [facility] [place] [facility] [address] [id number] [place] [address]- 7990 Jun, [facility] [place] [facility] [address] [id number] [place] [address]- 9931 Jun, [facility] [place] [facility] [address] [id number] [place] [address]- 3398 May, [facility] [place] [facility] [address] [id number] [place] [address]- 4602 May, [facility] [place] [facility] [address] [facility] [id number] [place] [address]- 7927 May, [facility] [place] [facility] [address] [id number] [place] [address]- 7827 May, [facility] [place] [facility] [address] [facility] [id number] [place] [address]- 3787 May, [facility] [place] [facility] [address] [facility] [id number] [place] [address]- 3674 May, [facility] [place] [facility] [address] [facility] [id number] [place] [address]- 3418 May, [facility] [place] [facility] [address] [facility] [id number] [place] [address]- 4078 May, [facility] [place] [facility] [address] [id number] [place] [address]- 9984 May, [facility] [place] [facility] [address] [facility] [id number] [place] [address]- 1690 18 May, 2013 [facility] [place] [facility] [address] [facility] [id number] [place] [address]- 2149 May, [facility] [place] [facility] [address] [id number] [place] [address]- 8479 17 May, 2013 [facility] [place] [facility] [address] [id number] [place] [address]- 8770 May, [facility] [place] [facility] [address] [id number] [place] [address]- 6756 May, [facility] [place] [facility] [address] [id number] [place] [address]- 6344 May, [facility] [place] [facility] [address] [id number] [place] [address]- 4519 May, [facility] [place] [facility] [address] [id number] [place] [address]86 May, [facility] [place] [facility] [address] [id number] [place] [address]- 0528 Apr, [facility] [place] [facility] [address] [id number] [place] [address]- 5794 Apr, [facility] [place] [facility] [address] [id number] [place] [address]- 0920 Apr, [facility] [place] [facility] [address] [id number] [place] [address]- 7930 Apr, [facility] [place] [facility] [address] [facility] [id number] [place] [address]- 5136 Apr, [facility] [place] [facility] [address] [id number], [place] [address]- 0215 Apr, [facility] [place] [facility] [address] [id number] [place] [address]- 9275 Apr, [facility] [place] [facility] [address] [id number] [place] [address]- 0176 Mar, [facility] [place] [facility] [address] [id number] [place] [address]- 1506 Mar, [facility] [place] [facility] [address] [id number], [place] [address]- 8296 Mar, [facility] [address] [id number] [place] [address]- 5199 Mar, [facility] [place] [facility] [address] [id number] [place] [address]- 1450 Mar, [facility] [address] [id number] [place] [address]- 7289 Mar, [facility] [place] [facility] [address] [id number] [place] [address]- 6340 Mar, [facility] [address] [id number] [place] [address]- 7823 Mar, [facility] [address] [id number] [place] [address]- 9270 Mar, [facility] [address] [id number] [place] [address]- 0447 Mar, [facility] [place] [facility] [address] [id number] [place] [address]- 1738 Mar, [facility] [address] [id number] [place] [address]- 1471 Feb, [facility] [place] [facility] [address] [id number] [place] [address]- 9200 Feb, [facility] [address] [id number], [place] [address]- 9242 Feb, [facility] [place] [facility] [address] [id number], [place] [address]- 0731 Feb, [facility] [place] [facility] [address] [id number], [place] [address]- 0405 Feb, [facility] [place] [facility] [address] [id number], [place] [address]- 1583 Feb, [facility] [place] [facility] [address] [id number] [place] [address]- 0909 15 Feb, 2013 [facility] [place] [facility] [address] [id number] [place] [address]- 6822 14 Feb, 2013 [facility] [place] [facility] [address] [id number] [place] [address]- 8426 14 Feb, 2013 [facility] [place] [facility] [address] [id number] [place] [address]- 9058 13 Feb, 2013 [facility] [place] [facility] [address] [id number] [place] [address]- 0509 13 Feb, 2013 [facility] [place] [facility] [address] [id number] [place] [address]- 2256 12 Feb, 2013 [facility] [place] [facility] [address] [id number] [place] [address]- 3062 Feb, [facility] [place] [facility] [address] [id number] [place] [address]- 6299 Feb, [facility] [place] [facility] [address] [id number] [place] [address]- 8474 Feb, [facility] [place] [facility] [address] [id number] [place] [address]- 9533 Feb, [facility] [place] [facility] [address] [id number] [place] [address]- 7533 Jan, [facility] [place] [facility] [address] [id number] [place] [address]- 8717 Jan, [facility] [place] [facility] [address] [id number] [place] [address]- 8605 24 Jan, 2013 [facility] [place] [facility] [address] [id number] [place] [address]- 7253 Jan, [facility] [place] [facility] [address] [id number] [place] [address]- 9177 Jan, [facility] [place] [facility] [address] [id number] [place] [address]- 2325 Jan, [facility] [place] [facility] [address] [id number] [place] [address]- 8503 Jan, [facility] [place] [facility] [address] [id number] [place] [address]- 5838 Jan, [facility] [place] [facility] [address] [id number] [place] [address]- 9290 10 Jan, 2013 [facility] [place] [facility] [address] [id number] [place] [address]- 6874 27 Dec, 2012 [facility] [place] [facility] [address] [id number] [place] [address]- 1387 20 Dec, 2012 [facility] [place] [facility] [address] [id number] [place] [address]- 1353 Dec, [facility] [place] [facility] [address] [id number] [place] [address]- 2850 10 Dec, 2012 [facility] [place] [facility] [address] [id number] [place] [address]- 1614 04 Dec, 2012 [facility] [place] [facility] [address] [id number] [place] [address]- 1969 Dec, [facility] [place] [facility] [address] [id number] [place] [address]- 5823 Nov, [facility] [place] [facility] [address] [id number] [place] [address]- 9584 Nov, [facility] [place] [facility] [address] [id number] [place] [address]- 7479 Nov, [facility] [place] [facility] [address] [id number], [place] [address]- 0496 Nov, [facility] [place] [facility] [address] [id number] [place] [address]- 0907 Nov, [facility] [place] [facility] [address] [id number] [place] [address]- 8144 Nov, [facility] [place] [facility] [address] [id number] [place] [address]- 4840 Nov, [facility] [place] [facility] [address] [id number] [place] [address]- 7781 15 Nov, 2012 [facility] [place] [facility] [address] [id number] [place] [address]- 8769 14 Nov, 2012 [facility] [place] [facility] [address] [id number] [place] [address]- 7563 Nov, [facility] [place] [facility] [address] [id number] [place] [address]- 6531 Oct, [facility] [place] [facility] [address] [id number] [place] [address]- 3528 Oct, [facility] [place] [facility] [address] [id number] [place] [address]- 0372 Oct, [facility] [place] [facility] [address] [id number] [place] [address]- 9758 Oct, [facility] [place] [facility] [address] [id number] [place] [address]- 9819 Oct, [facility] [place] [facility] [address] [id number] [place] [address]- 0244 Oct, [facility] [place] [facility] [address] [id number] [place] [address]- 9395 Oct, [facility] [place] [facility] [address] [id number] [place] [address]- 2906 Oct, [facility] [place] [facility] [address] [id number] [place] [address]- 4390 Sep, [facility] [place] [facility] [address] [id number] [place] [address]- 9327 Sep, [facility] [place] [facility] [address] [id number] [place] [address]- 3885 Sep, [facility] [place] [facility] [address] [id number] [place] [address]- 4036 Sep, [facility] [place] [facility] [address] [id number] [place] [address]- 5801 Sep, [facility] [place] [facility] [address] [id number] [place] [address]- 4020 Sep, [facility] [address] [id number] [place] [address]- 0563 Sep, [facility] [address] [id number] [place] [address]- 4808 Sep, [facility] [address] [id number] [place] [address]- 3389 August, [facility] [address] [id number] [place] [address]- 0360 August, [facility] [address] [id number] [place] [address]- 4397 August, [facility] [address] [id number] [place] [address]- 0209 August, [facility] [address] [id number] [place] [address]- 2001 August, [facility] [address] [id number] [place] [address]- 6541 Jul, [facility] [address] [id number] [place] [address] Jul, [facility] [address] [id number] [place] [address] Jul, [facility] [address] [id number] [place] [address] Jul, [facility] [address] [id number] [place] [address] Jul, [facility] [place] [facility] [address] [id number] [id number] [address] Jun, [facility] [place] [facility] [address] [id number] [place] [address] Jun, [facility] [address] [id number] [place] [address] 15 Jun, 2012 [facility] [address] [id number] [place] [address] 14 Jun, 2012 [facility] [place] [facility] [address] [id number] [place] [address] Jun, [facility] [place] [facility] [address] [id number] [place] [address] Jun, [facility] [place] [facility] [address] [id number] [place] [address] 08 Jun, 2012 [facility] [place] [facility] [address] [id number] [place] [address] Jun, [facility] [place] [facility] [address] [id number] [place] [address] Jun, [facility] [place] [facility] [address] [id number] [place] [address] May, [facility] [place] [facility] [address] [id number] [place] [address] May, [facility] [place] [facility] [address] [id number] [place] [address] May, [facility] [place] [facility] [address] [id number] [place] [address] May, [facility] [place] [facility] [address] [id number], [place] [address] Apr, [facility] [place] [facility] [address] [id number] [place] [address] Apr, [facility] [place] [facility] [address] [id number] [place] [address] Apr, [facility] [place] [facility] [address] [id number] [place] [address] Apr, [facility] [place] [facility] [address] [id number] [place] [address] Apr, [facility] [place] [facility] [address] [id number] [place] [address] Apr, [facility] [address] [id number] [place] [address] Apr, [facility] [address] [id number] [place] [address] Mar, [facility] [place] [id number] Mar, [facility] [address] [id number] [place] [address] Mar, [facility] [address] [id number] [place] [address] Mar, [facility] [address] [id number] [place] [address] Mar, [facility] [place] [address] [id number] [place] [address] Mar, [facility] [address] [id number] [place] [address] Mar, [facility] [address] [id number] [place] [address] Mar, [facility] [address] [id number] [place] [address]47 Mar, [facility] [address] [id number] [place] [address] Mar, [facility] [address] [id number] [place] [address]- [address] Mar, [facility] [address] [id number] [place] [address]99 Mar, [facility] [address] [id number] [place] [address] Mar, [facility] [address] [id number] [place] [address]- [address]673 Mar, [facility] [place] [facility] [address] [id number] [place] [address]- [address]99 Mar, [facility] [place] [facility] [address] [id number] [place] [address] 39[address] Mar, [facility] [place] [facility] [address] [id number] [place] [address]- [address] Mar, [facility] [place] [facility] [address] [id number] [place] [address] Feb, [facility] [place] [facility] [address] [id number] [place] [address] Feb, [facility] [place] [facility] [address] [id number] [place] [address]- 91[address] Feb, [facility] [place] [facility] [address] [id number] [place] [address]- 6166 Feb, [facility] [place] [facility] [address] [id number] [place] [address]- 0788 Feb, [facility] [place] [facility] [address] [id number] [place] [address]- 9424 Feb, [facility] [place] [facility] [address] [id number] [place] [address]- 8369 Feb, [facility] [place] [facility] [address] [id number] [place] [address]- 4527 Feb, [facility] [place] [facility] [address] [id number] [place] [address]- [address]65 Feb, [facility] [place] [facility] [address] [id number] [place] [address]- 4[address] Feb, [facility] [place] [facility] [address] [id number] [place] [address]- 7849 Feb, [facility] [place] [facility] [address] [id number] [place] [address] 9619 Feb, [facility] [place] [facility] [address] [id number], [place] [address] Feb, [facility] [place] [facility] [address] [id number] [place] [address] Feb, [facility] [place] [facility] [address] [id number] [place] [address]- [address]003 Feb, [facility] [place] [facility] [address] [facility] [id number] [place] [address]- 6186 Feb, [facility] [place] [facility] [address] [id number] [place] [address] Jan, [facility] [place] [facility] [address] [id number] [place] [address]- 7426 Jan, [facility] [place] [facility] [address] [id number] [place] [address]- 48[address] Jan, [facility] [place] [facility] [address] [id number] [place] [address]- 6425 Jan, [facility] [place] [facility] [address] [id number], [place] [address] Jan, [facility] [place] [facility] [address] [id number], [place] [address]- [address] Jan, [facility] [place] [facility] [address] [id number], [place] [address] Jan, [facility] [place] [facility] [address] [id number], [place] [address]- [address] Jan, [facility] [place] [facility] [address] [id number], [place] [address]- [address] Jan, [facility] [place] [facility] [address] [id number], [place] [address]- [address] Jan, [facility] [place] [facility] [address] [facility] [id number], [place] [address]- [address] Jan, [facility] [place] [facility] [address] [facility] [id number], [place] [address]- 4218 Jan, [facility] [place] [facility] [address] [id number] [place] [address]- 2902 11 Jan, 2012 [facility] [place] [facility] [address] [id number] [place] [address] 11 Jan, 2012 [facility] [place] [facility] [address] [id number] [place] [address] 08 Jan, 2012 [facility] [place] [facility] [address] [id number] [place] [address] 05 Jan, 2012 [facility] [place] [facility] [address] [id number] [place] [address]- 7[address] 04 Jan, 2012 [facility] [place] [facility] [address] [id number] [place] [address] 9[address] 21 Dec, 2011 [facility] [place] [facility] [address] [id number] [place] [address]- [address] 20 Dec, 2011 [facility] [place] [facility] [address] [id number] [place] [address] 18 Dec, 2011 [facility] [place] [facility] [address] [id number] [place] [address]- [address] 18 Dec, 2011 [facility] [place] [facility] [address] [id number] [place] [address] 10 Dec, 2011 [facility] [place] [facility] [address] [facility] [id number] [place] [address]- 2543 10 Dec, 2011 [facility] [place] [facility] [address] [id number] [place] [address] 2546 10 Dec, 2011 [facility] [place] [facility] [address] [id number] [place] [address] 07 Dec, 2011 [facility] [place] [facility] [address] [id number] [place] [address]- 4[address] 30 Nov, 2011 [facility] [place] [facility] [address] [id number] [place] [address]- 2541 Nov, [facility] [place] [facility] [address] [id number] [place] [address]- 62[address] Nov, [facility] [place] [facility] [address] [id number] [place] [address]- 4397 Nov, [facility] [place] [facility] [address] [id number] [place] [address]- 2854 Nov, [facility] [place] [facility] [address] [id number] [place] [address]- [address] Nov, [facility] [place] [facility] [address] [id number] [place] [address]- 9586 Oct, [facility] [place] [facility] [address] [id number] [place] [address]- 6045 Oct, [facility] [place] [facility] [address] [id number] [place] [address]- 228[address] Oct, [facility] [place] [facility] [address] [id number] [place] [address]- 6718 Oct, [facility] [place] [facility] [address] [id number] [place] [address]- 8001 Oct, [facility] [place] [facility] [address] [id number] [place] [address]- 1561 Oct, [facility] [place] [facility] [address] [id number] [place] [address]- 8141 Oct, [facility] [place] [facility] [address] [id number] [place] [address]- 9494 Sep, [facility] [place] [facility] [address] [id number] [place] [address]- 1110 Sep, [facility] [place] [facility] [address] [id number] [place] [address]- 2748 Sep, [facility] [place] [facility] [address] [id number] [place] [address]- 0049 Sep, [facility] [place] [facility] [address] [id number] [place] [address]- 9363 Sep, [facility] [place] [facility] [address] [id number] [place] [address]- 4284 15 Sep, 2011 [facility] [address] [id number] [place] [address]- 4881 14 Sep, 2011 [facility] [place] [facility] [address] [id number] [place] [address]- 2560 Sep, [facility] [place] [facility] [address] [id number] [place] [address]- 8710 05 Sep, 2011 [facility] [place] [facility] [address] [id number] [place] [address]- 9374 04 Sep, 2011 [facility] [place] [facility] [address] [id number] [place] [address]- 4353 August, [facility] [place] [facility] [address] [id number] [place] [address]- 6061 August, [facility] [address] [id number] [place] [address]- 7837 August, [facility] [place] [facility] [address] [id number] [place] [address]- 6584 August, [facility] [place] [facility] [address] [id number] [place] [address]- 4221 August, [facility] [place] [facility] [address] [id number] [place] [address]- 9308 Jul, [facility] [place] [facility] [address] [id number] [place] [address]- 8168 Jul, [facility] [place] [facility] [address] [id number] [place] [address]- 5682 25 Jul, 2011 [facility] [place] [facility] [address] [id number] [place] [address]- 0114 17 Jul, 2011 [facility] [place] [facility] [address] [id number] [place] [address]- 0582 11 Jul, 2011 [facility] [place] [facility] [address] [facility] [id number] [place] [address]- 5478 Jul, [facility] [place] [facility] [address] [id number] [place] [address]- 4706 Jul, [facility] [place] [facility] [address] [id number] [place] [address]- 4796 Jun, [facility] [place] [facility] [address] [id number] [place] [address]- 0756 Jun, [facility] [place] [facility] [address] [id number] [place] [address]- 9849 Jun, [facility] [place] [facility] [address] [id number] [place] [address]- 6332 Jun, [facility] [place] [facility] [address] [id number] [place] [address]- 1566 Jun, [facility] [place] [facility] [address] [id number] [place] [address]- 2548 May, [facility] [place] [facility] [address] [id number] [place] [address]- 4006 May, [facility] [place] [facility] [address] [id number] [place] [address]- 9847 May, [facility] [place] [facility] [address] [id number] [place] [address]- 3531 May, [facility] [place] [facility] [address] [id number] [place] [address]- 9461 May, [facility] [place] [facility] [address] [id number] [place] [address]- 0088 May, [facility] [place] [facility] [address] [id number] [place] [address]- 4397 Apr, [facility] [place] [facility] [address] [id number] [place] [address]- 2556 Mar, [facility] [place] [facility] [address] [id number] [place] [address]- 3270 Feb, [facility] [place] [facility] [address] [id number], [place] [address] 69[address] 07 Feb, 2011 [facility] [place] [facility] [address] [id number] [place] [address]- 8020 Feb, [facility] [place] [facility] [address] [id number] [place] [address] Feb, [facility] [place] [facility] [address] [id number] [place] [address]- 8502 31 Jan, 2011 [facility] [place] [facility] [address] [id number] [place] [address]- 9017 27 Jan, 2011 [facility] [place] [facility] [address] [id number] [place] [address]- 7288 Jan, [facility] [place] [facility] [address] [id number] [place] [address]- 2489 24 Jan, 2011 [facility] [place] [facility] [address] [id number] [place] [address]- 6612 14 Jan, 2011 [facility] [place] [facility] [address] [id number] [place] [address]- 7453 Dec, [facility] [place] [facility] [address] [id number] [place] [address]- 5119 Oct, [facility] [place] [facility] [address] [id number] [place] [address]- 7348 August, [facility] [place] [facility] [address] [id number], [place] [address]- 4805 29 Mar, 2010 [facility] [place] [facility] [address] [id number] [place] [address]- 2256 27 Mar, 2010 [facility] [place] [facility] [address] [id number] [place] [address]- 6217 16 Mar, 2010 [facility] [place] [facility] [address] [id number] [place] [address] 15 Mar, 2010 [facility] [place] [facility] [address] [id number] [place] [address]- 8344 15 Mar, 2010 [facility] [place] [facility] [address] [id number] [place] [address]- 8082 08 Mar, 2010 [facility] [address] [id number] [place] [address]- 6573 Mar, [facility] [place] [facility] [address] [id number] [place] [address]- 5965 Feb, [facility] [address] [id number] [place] [address]- 8229 24 Feb, 2010 [facility] [place] [facility] [address] [id number] [place] [address]- 7349 15 Feb, 2010 [facility] [address] [id number] [place] [address]- 1427 Jan, [facility] [place] [facility] [address] [id number] [place] [address]- 2912 Jan, [facility] [address] [id number] [place] [address]- 5337 Jan, [facility] [address] [id number] [place] [address]- 7257 Nov, [facility] [place] [facility] [address] [id number] [place] [address]- 6034 Sep, [facility] [address] [facility] [id number] [place] [address]- 6669 August, [facility] [place] [facility] [address] [id number] [place] [address]- 1109 30 Mar, 2009 [facility] [place] [facility] [address] [id number] [place] [address]- 7213 07 Mar, 2009 [facility] [place] [facility] [address] [id number] [place] [address]- 0328 17 Feb, 2009 [facility] [place] [facility] [address] [id number] [place] [address]- 0256 10 Feb, 2009 [facility] [place] [facility] [address] [id number] [place] [address]- 7988 Feb, [facility] [id number] [address] 8531 Feb, [facility] [id number], [place] [address]- 8781 Feb, [facility] [id number], [place] [address]- 1649 Jan, [facility] [id number], [place] [address]- 9442 Jan, [facility] [id number], [place] [address]- 8522 Jan, [facility] [id number] [place] [address]- 4525 Jan, [facility] [id number], [place] [address]- 6139 Nov, [facility] [id number], [place] [address]- 5816 Sep, [facility] [id number], [place] [address]- 3673 August, [facility] [id number], [place] [address]- 6909 Jul, [facility] [id number] [address]144 May, IMMUNIZATIONS No Known Immunizations SOCIAL HISTORY [...]
--- OUTSIDE RECORDS SUMMARY | 2018-02-10 11:10 | XMS REPORT ---
Author Author PATRICK GALAVIZ Organization [facility] Address [address] [place] [address] Care Team Providers Care Principal Java Developer Name Role Phone PATRICK GALAVIZ Unavailable PROBLEMS Type Condition ICD9-CM Code [id number] Code Onset Dates Condition Status SNOMED Code Problem 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 Active 92143135 Problem Colon polyp K63.5 Active 07371528 Problem Screening breast examination Z12.39 Active 754928880 Problem Bilateral low back pain without sciatica M54.5 Active 368797150 Problem Postmenopausal Z78.0 Active 76681863 Problem Essential tremor G25.0 Active 16464175 Problem Osteopenia M85.80 Active 821967579 Problem Hyperlipidemia E78.5 Active 50718077 Problem Cigarette nicotine dependence without complication F17.210 Active 55778262 Problem Vascular dementia without behavioral disturbance F01.50 Active [id number] Problem Arthritis M19.90 Active 1660294 Problem Chronic atrial fibrillation I48.2 Active 957982554 Problem Dementia without behavioral disturbance, unspecified dementia type F03.90 Active 27929434 Problem Other chronic pancreatitis K86.1 Active 678301400 Problem Xeroderma Q80.9 Active 36730349 Problem Chronic obstructive pulmonary disease with acute lower respiratory infection J44.0 Active 650323397 Problem Type 2 diabetes mellitus with diabetic neuropathy, without long-term current use of insulin E11.40 Active 40205260 Problem Atherosclerosis of nak[place] artery of both lower extremities with intermittent claudication I70.213 Active 304511729240959 Problem Hammertoe of right foot M20.41 Active 338584787 Problem Hammertoe of left foot M20.42 Active 222529264 Problem Migraine without aura and with status migrainosus, not intractable G43.001 Active 001673316 Problem Migraine without aura and without status migrainosus, not intractable G43.009 Active 804365160 Problem Major depressive disorder, recurrent episode, moderate F33.1 Active 112236073 Problem Unspecified psychosis F29 Active 48853309 Problem Cervicalgia M54.2 Active 4510917696516 Problem Diabetic polyneuropathy associated with type 2 diabetes mellitus E11.42 Active 79430099 Problem COPD (chronic obstructive pulmonary disease) J44.9 Active 13492478 Problem 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 Active 9502480201432 Problem Gastroparesis K31.84 Active 822631109 Problem Stress incontinence of urine N39.3 Active 72772589 Problem Osteoporosis M81.0 Active 67585573 Problem Controlled type 2 diabetes mellitus without complication, without long -term current use of insulin E11.9 Active 026804701 Problem Barretts esophagus K22.70 Active 973250633 Problem Chronic fatigue R53.82 Active 47702755 Problem History of common bile duct surgery Z98.89 Active 805189873 Problem Bipolar affective disorder, currently depressed, moderate F31.32 Active 260233631 Problem Generalized anxiety disorder F41.1 Active 839505314 Problem Gastroesophageal reflux disease, esophagitis presence not specified K21.9 Active 857539036 Problem Coronary artery disease involving naknek coronary artery of nak[place] heart with other form of angina pectoris I25.118 Active 9448899150486 Problem Postconcussion syndrome F07.81 Active 47534790 Problem Chronic pain syndrome G89.4 Active 902867874 Problem Type 2 diabetes mellitus with diabetic peripheral angiopathy without gangrene E11.51 Active 378651515 Problem Paroxysmal atrial fibrillation I48.0 Active 056997728 Problem Unspecified atherosclerosis of nak[place] arteries of extremities, unspecified extremity I70.209 Active 874009207818541 Problem Acute exacerbation of chronic obstructive pulmonary disease (COPD) J44.1 Active 390841896 Problem Crohn''s disease without complication, unspecified gastrointestinal tract location K50.90 Active 43646092 ALLERGIES No Information ENCOUNTERS Encounter Location Date Diagnosis [facility] [address] [facility] [id number] [address] Feb, [facility] [address] [facility] [id number] [address] Dec, [facility] [address] [facility] [id number] [address] Dec, High risk medication use Z79.899 [facility] [address] [address] 25 Dec, 2017 [facility] [id number] [place] [address] 83250- 2588 24 Dec, 2017 [facility] [address] [address] 2670 19 Dec, 2017 [facility] [address] [place] [id number] [place] [address] 31602- 5457 19 Dec, 2017 [facility] [id number] [place] [address] 69064- 2757 18 Dec, 2017 [facility] [address] [place] [id number] [place] [address] 42035- 9835 14 Dec, 2017 [facility] [address] [place] [id number] [place] [address] 51315- 3599 14 Dec, 2017 [facility] [id number] [place] [address] 10374- 7368 13 Dec, 2017 [facility] [address] [address] 8360 Dec, Type 2 diabetes mellitus with diabetic peripheral angiopathy without gangrene E11.51 ; Contusion of face, initial encounter S00.83XA and Bronchitis J40 [facility] [address] [address] 4[address] Dec, [facility] [address] [address] 6333 06 Dec, 2017 [facility] [address] [address] 3113 Nov, [facility] [address] [place] [id number] [place] [address] 39276- 7259 Nov, Onychomycosis B35.1 ; Hammertoe of left foot M20.42 ; Hammertoe of right foot M20.41 and Type 2 diabetes mellitus with diabetic neuropathy, without long-term current use of insulin E11.40 [place] [address] [place] [place] [id number] [place] [address] 06545- 6821 Nov, [place] [address] [place] [id number] [place] [address] 45241- 8399 Nov, Bronchitis J40 [place] [address] [place] [id number] [place] [address] 87257- 9890 Oct, [place] [address] 48086- 7705 Oct, Bipolar affective disorder, currently depressed, moderate F31.32 ; Vascular dementia without behavioral disturbance F01.50 and Generalized anxiety disorder F41.1 [place] [address] 10217- 6952 Oct, [place] [address] 34888- 3678 Oct, [place] [address] [place] [id number] [place] [address] 14906- 9422 Oct, Edema of both legs R60.0 [place] [address] 18500- 7872 Oct, [place] [address] [place] [id number] [place] [address] 25691- 9241 Sep, [place] [address] [place] [id number] [place] [address] 43960- 9616 Sep, [place] [address] [place] [id number] [place] [address] 02508- 6716 Sep, [place] [address] [id number] [place] [address] 96888- 3979 18 Sep, 2017 Encounter for well woman exam with routine gynecological exam Z01.419 ; Screening for STDs (sexually transmitted diseases) Z11.3 ; Screening breast examination Z12.31 and Overweight (BMI 25.0-29.9) E66.3 [place] [address] [id number]- 7624 Sep, [facility] [address] [address] 7079 Sep, [facility] [id number] [place] [address] 127302- 7646 Sep, [facility] [id number] [place] [address] 70096012- 5022 August, [facility] [id number] [place] [address] 92875- 5687 August, [facility] [id number] [place] [address] 63970- 0139 August, Type 2 diabetes mellitus with diabetic neuropathy, without long-term current use of insulin E11.40 and Sprain of right ankle, unspecified ligament, initial encounter S93.401A [facility] [address] [id number] [place] [address] 48845- 7650 August, [facility] [id number] [place] [address] 58936- 2854 August, [facility] [address] [place] [id number] [place] [address] 27590- 4403 August, [facility] [address] [address] 9739 August, Gastroesophageal reflux disease, esophagitis presence not specified K21.9 [facility] [address] [address]- 7883 August, [facility] [address] [address]- 8262 August, [facility] [address] 4534 August, [facility] [id number] [address] [address] August, Type 2 diabetes mellitus with diabetic neuropathy, without long-term current use of insulin E11.40 and Elevated liver enzymes R74.8 [facility] [id number] [place] [address] 29345- 8937 Jul, [facility] [id number] [place] [address] 40784- 5519 Jul, Cough R05 [facility] [id number] [place] [address] 03780- 3670 Jul, [facility] [address] 33806- 8106 Jul, [facility] [id number] [place] [address] 51129- 6635 Jul, Bipolar affective disorder, currently depressed, moderate F31.32 ; Vascular dementia without behavioral disturbance F01.50 and Generalized anxiety disorder F41.1 [facility] [id number] [place] [address] 87861- 2139 Jul, [facility] [id number] [place] [address] 33535- 0084 Jul, Type 2 diabetes mellitus with diabetic neuropathy, without long-term current use of insulin E11.40 and Elevated liver enzymes R74.8 [facility] [address] [id number] [place] [address] 34738- 6258 Jul, [facility] [id number] [place] [address] 21738- 3685 Jul, [facility] [id number] [place] [address] 19830- 3481 Jul, [facility] [id number] [place] [address] 79212- 5674 Jul, Post-menopausal Z78.0 [facility] [id number] [place] [address] 78182- 4110 Jul, Stress incontinence of urine N39.3 [facility] [id number] [place] [address] 47280- 4904 Jul, [facility] [address], [place] [address]- 8820 Jul, [facility] [address] [id number] [place] [address] 93798- 3325 Jul, Stress incontinence of urine N39.3 and Cough R05 [facility] [address] [place] [id number] [place] [address] 91678- 7001 Jul, [facility] [id number] [place] [address] 35888- 4345 Jul, [facility] [id number] [place] [address] 74508- 0929 Jul, [facility] [id number] [place] [address] 46041- 3918 Jul, Gastroesophageal reflux disease, esophagitis presence not specified K21.9 [facility] [address] [place] [id number] [place] [address] 35218- 1442 Jun, Diabetic polyneuropathy associated with type 2 diabetes mellitus E11.42 [facility] [address] [place] [id number] [place] [address] 87541- 4274 Jun, Diabetic polyneuropathy associated with type 2 diabetes mellitus E11.42 ; Coronary artery disease involving naknek coronary artery of nak[place] heart with other form of angina pectoris I25.118 and Paroxysmal atrial fibrillation I48.0 [facility] [id number] [place] [address] 11458- 3515 Jun, [facility] [id number] [place] [address] 91766- 7674 Jun, [facility] [address] [id number] [place] [address] 65098- 4430 Jun, Gastroenteritis K52.9 [facility] [id number] [place] [address] 24123- 3034 Jun, Gastroenteritis K52.9 [facility] [address] [place] [id number] [place] [address] 45082- 1383 Jun, [facility] [address], [place] [address]- 1926 Jun, [place] [address] [place] [id number] [place] [address] 26528- 5007 Jun, Sprain of right ankle, unspecified ligament, initial encounter S93.401A ; Type 2 diabetes mellitus with diabetic neuropathy, without long-term current use of insulin E11.40 ; Atherosclerosis of n[place] artery of both lower extremities with intermittent claudication I70.213 ; 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 ; Chronic atrial fibrillation I48.2 and Crohn''s disease without complication, unspecified gastrointestinal tract location K50.90 [facility] [id number] [place] [address] 50435 -6343 17 Jun, 2017 Cough R05 and Chronic obstructive pulmonary disease with acute lower respiratory infection J44.0 [place] [address] [place] [id number] [place] [address] 49203- 8516 16 Jun, 2017 [place] [address] [place] [place] [id number] [place] [address] 35188- 3025 15 Jun, 2017 Coughing R05 ; Unspecified atherosclerosis of n[place] arteries of extremities, unspecified extremity I70.209 ; Type 2 diabetes mellitus with diabetic peripheral angiopathy without gangrene E11.51 ; Crohn''s disease without complication, unspecified gastrointestinal tract location K50.90 ; Other chronic pancreatitis K86.1 and Chronic atrial fibrillation I48.2 [facility] [address] [address] Jun, [place] [id number] [place] [address] 16783- 7390 Jun, Bipolar affective disorder, currently depressed, moderate F31.32 ; Vascular dementia without behavioral disturbance F01.50 and Generalized anxiety disorder F41.1 [place] [address], [place] [address]- 0751 May, Generalized anxiety disorder F41.1 [place] [address] [id number] [address]- 7921 May, [facility] [id number] [place] [address] 15604- 8678 May, [facility] [id number] [place] [address] 24331- 1363 May, Coughing R05 [place] [address] [place] [id number] [place] [address] 65162- 4622 May, [place] [address] [place] [id number] [place] [address] 81880- 0647 May, Bipolar affective disorder, currently depressed, moderate F31.32 ; Vascular dementia without behavioral disturbance F01.50 and Generalized anxiety disorder F41.1 [place] [address] [place] [id number] [place] [address] 30443- 1648 Apr, Generalized anxiety disorder F41.1 [place] [address] [place] [id number] [place] [address] 43276- 0514 Apr, [place] [address] [place] [id number] [place] [address] 22563- 7282 Apr, Vascular dementia without behavioral disturbance F01.50 ; Generalized anxiety disorder F41.1 and Bipolar affective disorder, currently depressed, moderate F31.32 [place] [id number] [place] [address] 23234- 0280 Apr, Generalized anxiety disorder F41.1 [facility] [id number] [place] [address] 27550 -1674 Apr, Cough R05 and Acute exacerbation of chronic obstructive pulmonary disease (COPD) J44.1 [place] [address] [place] [id number] [place] [address] 20742- 7542 Apr, [facility] [id number] [place] [address] 92283 -5212 Mar, Cough R05 and Cigarette nicotine dependence without complication F17.210 [place] [address] [place] [id number] [place] [address] 96261- 2644 Mar, [facility] [id number] [place] [address] 61157- 4879 Feb, Generalized anxiety disorder F41.1 ; Major depressive disorder, recurrent episode, moderate F33.1 ; Vascular dementia without behavioral disturbance F01.50 and Unspecified psychosis F29 [place] [address] [place] [id number] [place] [address] 61056- 7606 Feb, [place] [address] [place] [place] [id number] [place] [address] 55194- 5524 Feb, [place] [address] 31167- 6939 Feb, Generalized anxiety disorder F41.1 [place] [address] [place] [id number] [place] [address] 06722- 1270 Feb, Generalized anxiety disorder F41.1 [place] [address] [place] [id number] [place] [address] 10024- 6813 Feb, Dizziness R42 ; Chronic fatigue R53.82 ; Postconcussion syndrome F07.81 ; Fall, initial encounter W19.XXXA and Disorientation R41.0 [place] [address] [place] [id number] [place] [address] 48462- 8173 03 Feb, 2017 Postconcussion syndrome F07.81 ; Injury of head, initial encounter S09.90XA ; Fall, initial encounter W19.XXXA ; Disorientation R41.0 and Acute cystitis with hematuria N30.01 [place] [address] [place] [id number] [place] [address] 65439- 8196 Jan, Gastroesophageal reflux disease, esophagitis presence not specified K21.9 ; Post-menopausal Z78.0 and Migraine without aura and without status migrainosus, not intractable G43.009 [place] [address] [place] [id number] [place] [address] 39080- 0871 Jan, [place] [address] [place] [address]- 4031 Jan, Generalized anxiety disorder F41.1 ; Major depressive disorder, recurrent episode, moderate F33.1 ; Vascular dementia without behavioral disturbance F01.50 and Unspecified psychosis F29 [facility] [address] [place] [id number] [place] [address] 67269- 5810 Jan, Pneumonia of left lower lobe due to infectious organism J18.1 [facility] [address] 00020- 3599 Jan, Migraine without aura and with status migrainosus, not intractable G43.001 [facility] [address] 63055 -3760 Jan, Migraine without aura and without status migrainosus, not intractable G43.009 [facility] [address] 38487- 8292 Dec, Hematoma T14.8 [place] [address] 70698- 7813 Dec, [facility] [address] [place] [id number] [place] [address] 81224 -9318 Nov, Fatigue, unspecified type R53.83 [place] [address] [place] [id number] [place] [address] 32320- 7436 Nov, Scabies B86 and Coronary artery disease involving naknek coronary artery of naknek heart with other form of angina pectoris I25.118 [facility] [address] [place] [id number] [place] [address] 00152- 5974 Nov, [place] [address] 15139- 9281 Nov, [place] [address] [place] [id number] [place] [address] 33392- 5867 Oct, [facility] [address] [place] [id number] [place] [address] 31717- 9773 Oct, Generalized anxiety disorder F41.1 and Major depressive disorder, recurrent episode, moderate F33.1 [facility] [address] [address]- 7305 19 Oct, 2016 Cramp of both lower extremities R25.2 [facility] [id number] [place] [address] 18370- 9071 18 Oct, 2016 Leg cramps R25.2 [facility] [id number] [place] [address] 52992- 3285 Oct, Chronic pain syndrome G89.4 [facility] [id number] [place] [address] 88243- 4074 17 Oct, 2016 [facility] [id number] [place] [address] 43472- 3881 Oct, [place] [address] [place] [id number] [place] [address] 60185- 0899 Oct, Routine gynecological examination Z01.419 and Screening for breast cancer Z12.31 [facility] [id number] [place] [address] 12139- 8246 Sep, Diarrhea R19.7 [facility] [address] [id number] [place] [address] 88103- 7564 Sep, Back pain M54.9 [facility] [address] [id number] [place] [address] 13660- 0047 Sep, [facility] [id number] [place] [address] 41260- 9032 Sep, [facility] [id number] [place] [address] 77462 -6708 August, Xeroderma Q80.9 [facility] [id number] [place] [address] 31669- 2750 August, Dementia without behavioral disturbance, unspecified dementia type F03.90 [facility] [id number] [place] [address] 71049- 4797 August, Chronic pain syndrome G89.4 [place] [id number] [place] [address] 09102- 0883 August, [place] [address] 02517- 8471 August, Hyperlipidemia E78.5 ; Other fatigue R53.83 and Other specified hypotension I95.89 [facility] [address] 25489 -4342 August, Dysuria R30.0 ; Other fatigue R53.83 and Other specified hypotension I95.89 [place] [address] 52529- 0968 August, [place] [address] 17529- 5463 Jul, Pain in left knee M25.562 and Gastroenteritis K52.9 [place] [address] 73855- 0069 Jul, [place] [address] 00864- 7523 Jul, Diarrhea R19.7 [facility] [place] [address] 06080 -5159 Jul, Spider bite, accidental or unintentional, initial encounter T63.301A [place] [address] 59963- 3414 Jul, Primary osteoarthritis of right knee M17.11 and Arthritis M19.90 [place] [address] [place] [id number] [place] [address] 31164- 0252 Jul, Generalized anxiety disorder F41.1 and Major depressive disorder, recurrent episode, moderate F33.1 [place] [id number] [place] [address] 52870- 6695 07 Jul, 2016 Type 2 diabetes mellitus with diabetic polyneuropathy E11.42 and Temporal headache R51 [place] [id number] [place] [address] 20399- 8744 06 Jul, 2016 Back pain M54.9 [facility] [address] 98768- 6116 Jul, [facility] [address] 48033- 8974 Jul, [facility] [address] 35383- 0669 30 Jun, 2016 Nausea R11.0 [facility] [address] 57897 -8693 Jun, Acute suppurative otitis media of both ears without spontaneous rupture of tympanic membranes, recurrence not specified H66.003 and COPD exacerbation J44.1 [place] [address] 84983- 4481 Jun, Generalized anxiety disorder F41.1 [place] [address] 09568- 1250 16 Jun, 2016 [facility] [address] 37587 -9640 Jun, [facility] [id number] [place] [address] 50368 -6571 Jun, Shortness of breath R06.02 and COPD exacerbation J44.1 [place] [id number] [place] [address] 40002- 1951 10 Jun, 2016 Eczema, unspecified type L30.9 [facility] [id number] [place] [address] 52156- 3844 09 Jun, 2016 [place] [address] 23263- 1660 24 May, 2016 [place] [id number] [place] [address] 36017- 3301 May, Muscle cramping R25.2 [place] [id number] [place] [address] 29147- 2757 13 May, 2016 [facility] [address] 32296- 6420 Apr, Diarrhea R19.7 [facility] [id number] [place] [address] 04566- 9433 Apr, [facility] [address] 68462- 1919 Apr, Chronic pain syndrome G89.4 [place] [address] 30081- 2968 Apr, Cramp of both lower extremities R25.2 and Vascular dementia without behavioral disturbance F01.50 [place] [address] 23850- 4675 Apr, Type 2 diabetes mellitus with diabetic polyneuropathy E11.42 and Cigarette nicotine dependence without complication F17.210 [place] [id number] [place] [address] 41101- 4501 Mar, Generalized anxiety disorder F41.1 [place] [address] 44334- 0517 Feb, Generalized anxiety disorder F41.1 and Major depressive disorder, recurrent episode, moderate F33.1 [place] [id number] [place] [address] 65470- 3024 Feb, [facility] [id number] [place] [address] 90342 -0994 Feb, Dysuria R30.0 and Acute cystitis with hematuria N30.01 [facility] [address] 74529- 8232 Jan, [facility] [id number] [place] [address] 72255- 1992 Jan, [facility] [address] 58833- 1994 Jan, [facility] [id number] [place] [address] 87836- 9871 Jan, [facility] [id number] [place] [address] 93183 -3192 10 Jan, 2016 Wasp sting, accidental or unintentional, initial encounter T63.461A [facility] [address] 67851- 1086 06 Jan, 2016 Encounter for immunization Z23 [facility] [address] 55388- 0509 05 Jan, 2016 [facility] [address] 68932- 3811 Jan, [facility] [address] 73658- 7153 28 Dec, 2015 Generalized anxiety disorder F41.1 and Major depressive disorder, recurrent episode, moderate F33.1 [facility] [id number] [place] [address] 37493- 7636 21 Dec, 2015 Routine gynecological examination Z01.419 ; Postmenopausal Z78.0 ; Screening breast examination Z12.39 ; Osteopenia M85.80 and Breast cancer screening Z12.39 [facility] [id number] [place] [address] 93562- 4220 20 Dec, 2015 [facility] [id number] [place] [address] 84397- 4947 19 Dec, 2015 [facility] [id number] [place] [address] 41131- 9783 16 Dec, 2015 [facility] [address] 20524- 8470 16 Dec, 2015 [facility] [id number] [place] [address] 04692- 2048 14 Dec, 2015 [facility] [id number] [place] [address] 75080- 6532 Dec, [facility] [id number] [address]- 0290 Nov, [facility] [address] [place] [address] Nov, Cough R05 ; Other viral agents as the cause of diseases classified elsewhere B97.89 and Acute upper respiratory infection, unspecified J06.9 [facility] [address] [address]- 0255 Nov, [facility] [address] [address]- 5937 Nov, [facility] [address] [address]- 5150 Nov, [facility] [address] [address]- 3389 Nov, [facility] [address] [place] [address]- 2805 Nov, [facility] [address], [place] [address]- 9404 Oct, [facility] [address] [address]- 6285 Oct, [facility] [address], [place] [address]- 0775 Oct, [facility] [address] [address]- 7208 Oct, Chronic pain syndrome G89.4 [facility] [address], [place] [address]- 1484 Sep, Generalized anxiety disorder F41.1 and Major depressive disorder, recurrent episode, moderate F33.1 [facility] [address] [address]- 1928 Sep, [facility] [address] [address]- 2698 Sep, 2015 [facility] [id number] [place] [address] 52394- 1547 14 Sep, 2015 Generalized anxiety disorder F41.1 [place] [id number] [place] [address] 92050- 2898 13 Sep, 2015 Cramp of both lower extremities R25.2 and Cervicalgia M54.2 [place] [address] 41912- 6812 06 Sep, 2015 Generalized anxiety disorder F41.1 [place] [id number] [place] [address] 00416- 5968 Sep, [facility] [id number] [place] [address] 37564 -8952 August, Rash R21 ; Itching L29.9 and Allergic response, subsequent encounter T78.40XD [place] [id number] [place] [address] 05196- 0344 August, Primary insomnia F51.01 [facility] [place] [id number] [place] [address] 65582 -1083 August, Rash R21 ; Itching L29.9 and Allergic response, initial encounter T78.40XA [place] [id number] [place] [address] 79795- 7039 August, [place] [id number] [place] [address] 90673- 8258 August, Cramp of both lower extremities R25.2 [place] [id number] [place] [address] 89834- 3800 August, Back pain M54.9 [place] [id number] [place] [address] 44487- 8207 August, [facility] [id number] [place] [address] 10210- 0535 August, [facility] [address], [place] [address]498 August, Cramp of both lower extremities R25.2 [facility] [id number] [place] [address] 61957- 4629 August, [facility] [address], [place] [address]- 9234 August, Syncope R55 ; Paroxysmal atrial fibrillation I48.0 ; Dementia without behavioral disturbance, unspecified dementia type F03.90 and Chronic pain syndrome G89.4 [facility] [address], [place] [address]- 1819 August, Type 2 diabetes mellitus with diabetic polyneuropathy E11.42 and Syncope R55 [facility] [id number] [address]- 4004 Jul, [facility] [id number] [place] [address] 80217- 5840 Jul, [facility] [address], [place] [address]- 0747 Jul, [facility] [id number] [place] [address] 01091- 5708 Jul, [facility] [address] [address]- 5172 Jul, [facility] [address], [place] [address]- 0729 Jul, UTI (urinary tract infection) N39.0 [facility] [address] [address]- 1495 Jul, [facility] [id number] [place] [address] 66747- 8409 Jul, Major depressive disorder, recurrent episode, moderate F33.1 and Generalized anxiety disorder F41.1 [facility] [address] [address]- 7062 Jul, Generalized anxiety disorder F41.1 [facility] [address], [place] [address]- 6652 14 Jul, 2015 Diarrhea R19.7 [facility] [address], [place] [address]- 1986 14 Jul, 2015 [facility] [address], [place] [address]- 8281 Jun, [facility] [id number] [place] [address] 84383- 3766 Jun, Eczema L30.9 [facility] [id number] [place] [address] 21103- 3149 Jun, [facility] [id number] [place] [address] 31070- 0951 Jun, COPD (chronic obstructive pulmonary disease) J44.9 [facility] [id number] [place] [address] 96028- 3541 Jun, [facility] [address], [place] [address]- 5670 Jun, Major depressive disorder, recurrent episode, moderate F33.1 and Generalized anxiety disorder F41.1 [facility] [address] [address]- 7342 May, [facility] [address] [address]- 4356 May, UTI (urinary tract infection) N39.0 [facility] [address], [place] [address]- 1184 17 May, 2015 [facility] [address], [place] [address]- 0236 May, [facility] [address], [place] [address]- 2546 May, [facility] [address], [place] [address]- 9629 May, [facility] [id number] [place] [address] 73289- 2011 Apr, Major depressive disorder, recurrent episode, moderate F33.1 and Generalized anxiety disorder F41.1 [facility] [id number] [place] [address] 75469- 2292 Apr, COPD (chronic obstructive pulmonary disease) J44.9 [facility] [id number] [place] [address] 10848- 3914 Apr, [facility] [id number] [place] [address] 33192- 7242 Apr, Atrial flutter I48.92 [facility] [id number] [place] [address] 68868- 2127 Apr, [facility] [id number] [place] [address] 89966- 6775 Apr, [facility] [id number] [place] [address] 59322- 2467 Mar, [facility] [id number] [place] [address] 43402- 7535 Mar, [facility] [id number] [place] [address] 14003- 6998 Mar, [facility] [id number] [place] [address] 68742- 6088 Mar, Hyperlipidemia E78.5 ; Type 2 diabetes mellitus with diabetic polyneuropathy E11.42 ; Major depressive disorder, recurrent episode, moderate F33.1 and Chronic pain syndrome G89.4 [facility] [id number] [place] [address] 63130- 7427 Mar, [facility] [id number] [place] [address] 72707- 7202 Mar, [facility] [id number] [place] [address] 53769- 7621 Mar, [facility] [address], [place] [address]- 4546 Mar, [facility] [id number] [place] [address] 07530- 6124 Feb, COPD (chronic obstructive pulmonary disease) J44.9 and Back pain M54.9 [facility] [id number] [place] [address] 81841- 7967 Feb, [facility] [id number] [place] [address] 22063- 7223 Feb, [facility] [id number] [place] [address] 18297- 4586 Feb, [facility] [id number] [place] [address] 92151- 1303 Feb, [facility] [id number] [place] [address] 42262- 7422 Feb, [facility] [id number] [place] [address] 40686- 4364 Feb, [facility] [id number] [place] [address] 62779- 6988 Feb, [facility] [id number] [place] [address] 77472- 7812 Feb, [facility] [id number] [place] [address] 43791- 5031 Feb, Diabetes E11.9 ; Back pain M54.9 and COPD (chronic obstructive pulmonary disease) J44.9 [facility] [id number] [place] [address] 07239- 5744 Jan, [facility] [id number] [place] [address] 49485- 5416 Jan, Major depression, recurrent F33.9 and Generalized anxiety disorder F41.1 [facility] [id number] [place] [address] 76767- 7965 Jan, Chronic pain G89.29 [facility] [address], [place] [address]- 2490 Jan, [facility] [id number] [place] [address] 48785- 1975 Jan, [facility] [id number] [place] [address] 42340- 5006 Jan, [facility] [id number] [place] [address] 80824- 5459 Jan, [facility] [id number] [place] [address] 14994- 8573 Jan, Nicotine dependence F17.200 [facility] [id number] [place] [address] 85365- 3565 Jan, Nicotine dependence F17.200 and Back pain M54.9 [facility] [id number] [place] [address] 59816- 4494 Jan, [facility] [id number] [place] [address] 12857- 9367 28 Dec, 2014 [facility] [id number] [place] [address] 87021- 7105 25 Dec, 2014 Anxiety, generalized 300.02 and Major depression, recurrent 296.30 [facility] [id number] [place] [address] 13712- 3157 24 Dec, 2014 [facility] [id number] [place] [address] 52744- 6692 21 Dec, 2014 [facility] [id number] [place] [address] 88147- 8781 17 Dec, 2014 [facility] [id number] [place] [address] 69689- 0241 15 Dec, 2014 [facility] [id number] [place] [address] 56984- 2224 14 Dec, 2014 [facility] [address], [place] [address]- 2389 11 Dec, 2014 [facility] [id number] [place] [address] 11152- 1845 Dec, [facility] [id number] [place] [address] 17003- 4659 08 Dec, 2014 Skin tear 879.8 [facility] [id number] [place] [address] 87623- 5875 08 Dec, 2014 Routine gynecological examination V72.31 ; Breast cancer screening V76.10 and Family history of breast cancer in first degree relative V16.3 [facility] [id number] [place] [address] 23247- 7437 Dec, [facility] [id number] [place] [address] 16552- 7506 Dec, [facility] [id number] [place] [address] 13390- 1123 Nov, [facility] [id number] [place] [address] 03458- 7850 Nov, [facility] [id number] [place] [address] 41404- 6077 Nov, Poor balance 781.99 and Vascular dementia, uncomplicated 290.40 [facility] [id number] [place] [address] 46576- 5826 Nov, [facility] [id number] [place] [address] 49232- 3445 Nov, Major depression, recurrent 296.30 and Anxiety, generalized 300.02 [facility] [id number] [place] [address] 33731- 4213 Nov, [facility] [id number] [place] [address] 72960- 1920 Nov, [facility] [id number] [place] [address] 03389- 1002 Nov, [facility] [address], [place] [address]- 0617 Nov, [facility] [address], [place] [address]- 9880 Nov, Vascular dementia, uncomplicated 290.40 and Lumbago 724.2 [facility] [id number] [place] [address] 21545- 1071 Nov, [facility] [address], [place] [address]- 9547 Nov, [facility] [id number] [place] [address] 06273- 8392 Nov, [facility] [id number] [address]- 8998 Oct, [facility] [id number] [place] [address] 07740- 3149 Oct, [facility] [address], [place] [address]- 6530 Oct, [facility] [id number] [place] [address] 96783- 9198 Oct, COPD (chronic obstructive pulmonary disease) 496 and Hyperlipidemia 272.4 [facility] [address], [place] [address]- 7241 Oct, Major depression, recurrent 296.30 and Anxiety, generalized 300.02 [facility] [address], [place] [address]- 5438 Oct, [facility] [address], [place] [address]- 2001 Oct, [facility] [address], [place] [address]- 6446 Oct, [facility] [address], [place] [address]- 6211 Sep, Lumbago 724.2 and Anxiety state, unspecified 300.00 [facility] [address], [place] [address]- 9513 Sep, [facility] [id number] [address]- 3102 Sep, [facility] [id number] [address]- 0579 August, [facility] [id number] [place] [id number]- [address] August, Major depression, recurrent 296.30 ; Anxiety, generalized 300.02 and No condition on [place] II V71.09 [facility] [id number] [place] [address] August, [facility] [id number] [address] August, [facility] [id number] [address] Jul, [facility] [id number] [address] Jul, [facility] [id number], [place] [address] Jul, [facility] [id number], [place] [address] Jun, [facility] [id number], [place] [address] Jun, [facility] [id number], [place] [address] Jun, [facility] [id number], [place] [address] Jun, [facility] [id number] [address] Jun, [facility] [id number] [place] [address] [place] [address] 23 Jun, 2014 [facility] [place] [facility] [address] [id number] [place] [address] 23 Jun, 2014 [facility] [place] [facility] [address] [id number] [place] [address] 17 Jun, 2014 [facility] [place] [facility] [address] [id number] [place] [address] 13 Jun, 2014 [facility] [place] [facility] [address] [id number] [place] [address]- [address] 13 Jun, 2014 [facility] [place] [facility] [address] [id number] [place] [address] 10 Jun, 2014 [facility] [place] [facility] [address] [id number] [place] [address]- [address] 10 Jun, 2014 [facility] [place] [facility] [address] [id number] [place] [address] Jun, 2014 [facility] [place] [facility] [address] [id number] [place] [address] Jun, 2014 [facility] [place] [facility] [address] [id number] [place] [address] 02 Jun, 2014 [facility] [place] [facility] [address] [id number] [place] [address] Jun, [facility] [place] [facility] [address] [id number] [place] [address] 69[address] May, 2014 [facility] [place] [facility] [address] [id number] [place] [address]- 7305 May, 2014 [facility] [place] [facility] [address] [id number] [place] [address]- 3558 May, 2014 [facility] [place] [facility] [address] [id number] [place] [address]- 1596 May, 2014 [facility] [place] [facility] [address] [id number] [place] [address]- 5224 May, 2014 [facility] [place] [facility] [address] [id number] [place] [address]- 2577 May, 2014 [facility] [place] [facility] [address] [id number] [place] [address]- 0476 May, 2014 [facility] [place] [facility] [address] [id number] [place] [address]- 6371 May, 2014 [facility] [place] [facility] [address] [id number] [place] [address]- 5381 May, 2014 [facility] [place] [facility] [address] [id number] [place] [address]- 0602 May, 2014 [facility] [place] [facility] [address] [id number] [place] [address]- 3510 May, 2014 [facility] [place] [facility] [address] [id number] [place] [address]- 5086 May, 2014 [facility] [place] [facility] [address] [id number] [place] [address]- 0576 May, [facility] [place] [facility] [address] [id number] [place] [address]- 8234 May, [facility] [place] [facility] [address] [id number] [place] [address]- 2251 Apr, [facility] [place] [facility] [address] [id number] [place] [address]- 3895 Apr, [facility] [place] [facility] [address] [id number] [place] [address]- 9524 Apr, [facility] [place] [facility] [address] [id number] [place] [address]- 2321 Apr, [facility] [place] [facility] [address] [facility] [id number] [place] [address]- 2686 Apr, [facility] [place] [facility] [address] [facility] [id number] [place] [address]- 8135 Apr, [facility] [place] [facility] [address] [id number] [place] [address]- 7919 Apr, [facility] [address] [id number] [place] [address]- 6303 Apr, [facility] [address] [id number] [place] [address]- 9890 Apr, [facility] [address] [id number] [place] [address]- 7284 Apr, [facility] [address] [id number] [place] [address]- 2556 Apr, [facility] [address] [id number] [place] [address]- 3146 Apr, [facility] [address] [id number] [place] [address]- 6930 Mar, [facility] [address] [id number] [place] [address]- 4105 31 Mar, 2014 [facility] [address] [id number] [place] [address]- 1418 30 Mar, 2014 [facility] [address] [id number] [place] [address]- 6352 30 Mar, 2014 [facility] [address] [id number] [place] [address]- 8759 29 Mar, 2014 [facility] [place] [facility] [address] [id number] [place] [address]- 1534 29 Mar, 2014 [facility] [place] [facility] [address] [id number] [place] [address]- 2238 Mar, [facility] [place] [facility] [address] [id number] [place] [address] 19 Mar, 2014 [facility] [place] [facility] [address] [id number] [place] [address]- 2500 15 Mar, 2014 [facility] [place] [facility] [address] [id number] [place] [address]- 8254 Mar, [facility] [place] [facility] [address] [id number] [place] [address]- 4871 Mar, [facility] [place] [facility] [address] [id number] [place] [address]- 3337 Mar, [facility] [place] [facility] [address] [id number] [place] [address]- 3320 Mar, [facility] [place] [facility] [address] [id number] [place] [address]- 7159 Mar, [facility] [place] [facility] [address] [id number] [place] [address]- 2719 Mar, [facility] [place] [facility] [address] [id number] [place] [address]- 6173 Mar, [facility] [place] [facility] [address] [id number] [place] [address]- 5733 Mar, [facility] [place] [facility] [address] [id number] [place] [address]- 4087 Mar, [facility] [place] [facility] [address] [id number] [place] [address]- 6100 Mar, [facility] [place] [facility] [address] [id number] [place] [address]- 2216 Mar, [facility] [place] [facility] [address] [id number] [place] [address]- 1719 Feb, [facility] [place] [facility] [address] [id number], [place] [address]- 4957 Feb, [facility] [place] [facility] [address] [id number] [place] [address]- 7268 Feb, [facility] [place] [facility] [address] [id number] [place] [address]- 3975 Feb, [facility] [place] [facility] [address] [id number] [place] [address]- 7192 Feb, [facility] [place] [facility] [address] [id number], [place] [address]- 4906 Feb, [facility] [place] [facility] [address] [id number] [place] [address]- 7683 Feb, [facility] [place] [facility] [address] [id number] [place] [address]- 2161 Feb, [facility] [place] [facility] [address] [facility] [id number] [place] [address]- 7060 Feb, [facility] [place] [facility] [address] [id number] [place] [address]- 9914 Feb, [facility] [place] [facility] [address] [id number] [place] [address]- 3223 Feb, [facility] [place] [facility] [address] [id number] [place] [address]- 0538 Feb, [facility] [place] [facility] [address] [facility] [id number] [place] [address]- 7852 Feb, [facility] [place] [facility] [address] [facility] [id number] [place] [address]- 3017 Feb, [facility] [place] [facility] [address] [facility] [id number] [place] [address]- 5050 Feb, [facility] [place] [facility] [address] [facility] [id number] [place] [address]- 7139 Feb, [facility] [place] [facility] [address] [facility] [id number], [place] [address]- 7566 Feb, [facility] [place] [facility] [address] [id number], [place] [address]- 2414 Jan, [facility] [place] [facility] [address] [id number] [place] [address]- 2236 Jan, [facility] [place] [facility] [address] [facility] [id number] [place] [address]- 0446 Jan, [facility] [place] [facility] [address] [facility] [id number], [place] [address]- 8912 Jan, [facility] [place] [facility] [address] [id number] [place] [address]- 2656 Jan, [facility] [place] [facility] [address] [id number] [place] [address]- 9995 Jan, [facility] [place] [facility] [address] [id number] [place] [address] Jan, [facility] [place] [facility] [address] [id number] [place] [address]- 1902 Jan, [facility] [place] [facility] [address] [id number] [place] [address]- 8071 Jan, [facility] [place] [facility] [address] [id number] [place] [address]- 0236 Jan, [facility] [place] [facility] [address] [id number] [place] [address]- 5908 Jan, [facility] [place] [facility] [address] [id number] [place] [address]- 7313 Dec, [facility] [place] [facility] [address] [id number] [place] [address]- 5924 Dec, [facility] [place] [facility] [address] [id number] [place] [address]- 7583 Nov, [facility] [place] [facility] [address] [id number] [place] [address]- 6941 Nov, [facility] [place] [facility] [address] [id number] [place] [address]- 7367 Nov, [facility] [place] [facility] [address] [id number] [place] [address]- 1689 Nov, [facility] [place] [facility] [address] [id number] [place] [address]- 1401 Nov, [facility] [place] [facility] [address] [id number] [place] 2356 Nov, [facility] [place] [facility] [address] [id number] [place] [address]- 9396 Nov, [facility] [place] [facility] [address] [id number] [place] [address]- 2853 Oct, [facility] [place] [facility] [address] [id number] [place] [address]- 5236 Oct, [facility] [place] [facility] [address] [id number] [place] [address]- 1883 Oct, [facility] [place] [facility] [address] [id number] [place] [address]- 4587 Oct, [facility] [place] [facility] [address] [id number] [place] [address]- 1589 Sep, [facility] [place] [facility] [address] [id number] [place] [address]- 0899 Sep, [facility] [place] [facility] [address] [id number] [place] [address]- 2197 Sep, [facility] [place] [facility] [address] [id number] [place] [address]- 5216 Sep, [facility] [place] [facility] [address] [id number] [place] [address]- 7133 Sep, [facility] [place] [facility] [address] [id number] [place] [address]- 5213 Sep, [facility] [place] [facility] [address] [id number] [place] [address]- 5364 Sep, [facility] [place] [facility] [address] [id number] [place] [address]- 8866 Sep, [facility] [place] [facility] [address] [id number] [place] [address]- 3885 Sep, [facility] [place] [facility] [address] [id number] [place] [address]- 6209 Sep, [facility] [place] [facility] [address] [id number] [place] [address]- 8531 Sep, [facility] [place] [facility] [address] [id number] [place] [address]- 7680 Sep, [facility] [address] [id number] [place] [address]- 8367 Sep, [facility] [place] [facility] [address] [id number] [place] [address]- 4133 Sep, [facility] [place] [facility] [address] [id number] [place] [address]- 8634 August, [facility] [place] [facility] [address] [id number] [place] [address]- 4552 August, [facility] [place] [facility] [address] [id number] [place] [address]- 6392 August, [facility] [place] [facility] [address] [id number] [place] [address]- 9661 August, [facility] [address] [id number] [place] [address]- 6225 August, [facility] [place] [facility] [address] [id number] [place] [address]- 1774 August, [facility] [place] [facility] [address] [id number] [place] [address]- 8679 August, [facility] [place] [facility] [address] [id number] [place] [address]- 1822 August, [facility] [place] [facility] [address] [id number] [place] [address]- 3433 August, [facility] [place] [facility] [address] [id number] [place] [address]- 1520 August, [facility] [place] [facility] [address] [id number] [place] [address]- 7509 August, [facility] [place] [facility] [address] [id number] [place] [address]- 0250 August, [facility] [place] [facility] [address] [id number] [place] [address]63 August, [facility] [place] [facility] [address] [id number] [place] [address]- 4839 August, [facility] [place] [facility] [address] [id number] [place] [address]- 3486 August, [facility] [place] [facility] [address] [id number] [place] [address]- 0866 August, [facility] [place] [facility] [address] [id number] [place] [address]- 3140 August, [facility] [place] [facility] [address] [id number] [place] [address]- 8432 August, [facility] [place] [facility] [address] [id number] [place] [address]- 0890 August, [facility] [place] [facility] [address] [id number] [place] [address]- 4904 Jul, [facility] [place] [facility] [address] [id number] [place] [address]- 7145 Jul, [facility] [place] [facility] [address] [id number] [place] [address]- 3898 Jul, [facility] [place] [facility] [address] [id number] [place] [address]- 7753 Jul, [facility] [place] [facility] [address] [id number] [place] [address]- 7146 Jun, [facility] [place] [facility] [address] [id number] [place] [address]- 4322 Jun, [facility] [place] [facility] [address] [id number] [place] [address]- 0758 Jun, [facility] [place] [facility] [address] [id number] [place] [address]- 1274 Jun, [facility] [place] [facility] [address] [id number] [place] [address]- 1769 17 Jun, 2013 [facility] [place] [facility] [address] [id number] [place] [address]- 5175 17 Jun, 2013 [facility] [place] [facility] [address] [id number] [place] [address]- 7320 14 Jun, 2013 [facility] [place] [facility] [address] [id number] [place] [address]- 8815 14 Jun, 2013 [facility] [place] [facility] [address] [facility] [id number] [place] [address]- 4259 Jun, [facility] [place] [facility] [address] [id number] [place] [address]- 3083 06 Jun, 2013 [facility] [place] [facility] [address] [id number] [place] [address]- 5897 May, [facility] [place] [facility] [address] [facility] [id number] [place] [address]- 2588 May, [facility] [place] [facility] [address] [facility] [id number] [place] [address]- 2106 May, [facility] [place] [facility] [address] [facility] [id number] [place] [address]- 0411 May, [facility] [place] [facility] [address] [facility] [id number] [place] [address]- 2514 May, [facility] [place] [facility] [address] [facility] [id number] [place] [address]- 6006 May, [facility] [place] [facility] [address] [facility] [id number] [place] [address]- 5632 20 May, 2013 [facility] [place] [facility] [address] [facility] [id number] [place] [address]- 7485 May, [facility] [place] [facility] [address] [id number] [place] [address]- 3265 May, [facility] [place] [facility] [address] [facility] [id number] [place] [address]- 2261 18 May, 2013 [facility] [place] [facility] [address] [facility] [id number] [place] [address]- 5354 May, [facility] [place] [facility] [address] [id number] [place] [address]- 8085 17 May, 2013 [facility] [place] [facility] [address] [id number] [place] [address]- 7686 May, [facility] [place] [facility] [address] [id number] [place] [address]- 6507 May, [facility] [place] [facility] [address] [id number] [place] [address]- 9398 May, [facility] [place] [facility] [address] [id number] [place] [address]- 0960 May, [facility] [place] [facility] [address] [id number] [place] [address]- 9431 May, [facility] [place] [facility] [address] [id number] [place] [address]- 3402 Apr, [facility] [place] [facility] [address] [id number] [place] [address]- 8394 Apr, [facility] [place] [facility] [address] [id number] [place] [address]- 3760 Apr, [facility] [place] [facility] [address] [id number] [place] [address]- 3450 Apr, [facility] [place] [facility] [address] [id number], [place] [address]- 3041 Apr, [facility] [place] [facility] [address] [id number], [place] [address]- 1438 Apr, [facility] [place] [facility] [address] [id number] [place] [address]- 9445 Apr, [facility] [place] [facility] [address] [id number] [place] [address]- 8605 Mar, [facility] [place] [facility] [address] [id number] [place] [address]- 8096 Mar, [facility] [place] [facility] [address] [id number] [place] [address]- 6025 Mar, [facility] [address] [id number] [place] [address]- 4325 Mar, [facility] [address] [id number] [place] 9456 Mar, [facility] [address] [id number] [place] [address]- 8226 Mar, [facility] [place] [facility] [address] [id number] [place] [address]- 3524 Mar, [facility] [address] [id number] [place] [address]- 4386 Mar, [facility] [address] [id number] [place] [address]- 8947 Mar, [facility] [address] [id number] [place] 3488 Mar, [facility] [address] [id number] [place] [address]- 0958 Mar, [facility] [place] [facility] [address] [id number] [place] [address]- 1619 Feb, [facility] [address] [facility] [id number] [place] [address]- 4151 Feb, [facility] [address] [id number] [place] [address]- 2652 Feb, [facility] [place] [facility] [address] [id number], [place] [address]- 2351 Feb, [facility] [place] [facility] [address] [id number] [place] [address]- 2213 Feb, [facility] [place] [facility] [address] [id number] [place] [address]- 8888 Feb, [facility] [address] [id number], [place] [address]- 8900 15 Feb, 2013 [facility] [place] [facility] [address] [id number] [place] [address]- 6996 14 Feb, 2013 [facility] [place] [facility] [address] [id number] [place] [address]- 2204 14 Feb, 2013 [facility] [place] [facility] [address] [id number] [place] [address]- 9924 13 Feb, 2013 [facility] [place] [facility] [address] [id number] [place] [address]- 6647 Feb, [facility] [place] [facility] [address] [id number] [place] [address]- 7464 Feb, [facility] [place] [facility] [address] [id number] [place] [address]- 5770 Feb, [facility] [place] [facility] [address] [id number] [place] [address]- 1657 Feb, [facility] [place] [facility] [address] [id number] [place] [address] Feb, [facility] [place] [facility] [address] [id number] [place] [address] Feb, [facility] [place] [facility] [address] [id number] [place] [address] Jan, [facility] [place] [facility] [address] [id number] [place] [address] Jan, [facility] [place] [facility] [address] [id number] [address] Jan, [facility] [place] [facility] [address] [id number] [place] [address] Jan, [facility] [place] [facility] [address] [id number] [place] [address] Jan, [facility] [place] [facility] [address] [id number] [place] [address] Jan, [facility] [place] [facility] [address] [id number], [place] [address] Jan, [facility] [place] [facility] [address] [id number] [place] [address] 14[address] Jan, [facility] [place] [facility] [address] [id number] [place] [address] Jan, [facility] [place] [facility] [address] [id number] [place] [address] 27 Dec, 2012 [facility] [place] [facility] [address] [id number] [place] [address]47 20 Dec, 2012 [facility] [place] [facility] [address] [id number] [place] [address]- [address] 19 Dec, 2012 [facility] [place] [facility] [address] [id number] [place] [address]- [address] 10 Dec, 2012 [facility] [place] [facility] [address] [id number] [place] [address]- [address] 04 Dec, 2012 [facility] [place] [facility] [address] [id number] [place] [address]- [address] Dec, [facility] [place] [facility] [address] [id number] [place] [address] Nov, [facility] [place] [facility] [address] [id number] [place] [address] 34[address] Nov, [facility] [place] [facility] [address] [id number] [place] [address]- 1562 Nov, [facility] [place] [facility] [address] [id number] [place] [address]- [address]561 Nov, [facility] [place] [facility] [address] [id number] [place] [address]- 9091 Nov, [facility] [place] [facility] [address] [id number] [place] [address]- 8186 Nov, [facility] [place] [facility] [address] [id number] [place] [address]- 24[address] Nov, [facility] [place] [facility] [address] [id number] [place] [address]- [address]99 15 Nov, 2012 [facility] [address] [id number] [place] [address] Nov, [facility] [place] [facility] [address] [id number] [place] [address] Nov, [facility] [address] [id number] [place] [address] 97[address] Oct, [facility] [place] [facility] [address] [id number] [place] [address]- 86[address] Oct, [facility] [address] [id number] [place] [address] 359[address] Oct, [facility] [address] [id number] [place] [address] 9880 Oct, [facility] [address] [id number] [place] [address] 74[address] Oct, [facility] [address] [id number] [place] [address] 8598 Oct, [facility] [place] [facility] [address] [id number] [place] [address] 47[address] Oct, [facility] [address] [id number] [place] [address]- 4[address] Oct, [facility] [place] [facility] [address] [id number] [place] [address]- 6[address] Sep, [facility] [place] [facility] [address] [id number] [place] [address]- [address] Sep, [facility] [place] [facility] [address] [id number] [place] [address]- [address] Sep, [facility] [place] [facility] [address] [id number] [place] [address]- 8069 Sep, [facility] [place] [facility] [address] [id number] [place] [address]- 2028 Sep, [facility] [address] [id number] [place] [address]- 39[address] Sep, [facility] [place] [facility] [address] [id number] [place] [address]- 7346 Sep, [facility] [address] [id number] [place] [address]- 4456 Sep, [facility] [place] [facility] [address] [id number] [place] [address] 4326 August, [facility] [address] [id number] [place] [address]- 8717 August, [facility] [address] [id number] [place] [address] 38[address] August, [facility] [address] [id number] [place] [address]- 1154 August, [facility] [address] [id number] [place] [address]- 1772 August, [facility] [address] [id number] [place] [address]- 1216 Jul, [facility] [place] [facility] [address] [id number] [place] [address]- 4714 Jul, [facility] [place] [facility] [address] [id number] [place] [address]- 1744 Jul, [facility] [place] [facility] [address] [id number], [place] [address] Jul, [facility] [place] [facility] [address] [id number] [place] [address] Jul, [facility] [place] [facility] [address] [id number] [place] [address]- 9939 Jun, [facility] [place] [facility] [address] [id number] [place] [address] Jun, [facility] [place] [facility] [address] [id number], [place] [address] 15 Jun, 2012 [facility] [address] [id number] [place] [address]- 9760 14 Jun, 2012 [facility] [place] [facility] [address] [id number] [place] [address]- 1262 Jun, [facility] [address] [facility] [id number] [place] [address]- 5712 08 Jun, 2012 [facility] [place] [facility] [address] [id number] [place] [address]- 6767 08 Jun, 2012 [facility] [address] [id number] [place] [address]- 4213 Jun, [facility] [address] [id number] [place] [address]- 2165 Jun, [facility] [address] [id number] [place] [address] May, [facility] [place] [facility] [address] [id number] [place] [address]- 4842 May, [facility] [address] [id number] [place] [address]- 2530 May, [facility] [address] [facility] [id number] [place] [address]- 4423 May, [facility] [address] [facility] [id number] [place] [address]- 479[address] Apr, [facility] [place] [facility] [address] [id number], [place] [address] Apr, [facility] [place] [facility] [address] [id number] [place] [address]- 6828 Apr, [facility] [place] [facility] [address] [facility] [id number] [place] [address]- 4016 Apr, [facility] [place] [facility] [address] [facility] [id number], [place] [address]- 9[address] Apr, [facility] [address] [id number] [place] [address] Apr, [facility] [address] [id number] [place] [address] Apr, [facility] [address] [id number] [place] [address] Mar, [facility] [address] [place] [id number] Mar, [facility] [address] [id number] [place] [address] Mar, [facility] [address] [id number] [place] [address] 39[address] Mar, [facility] [address] [id number] [place] [address] Mar, [facility] [address] [id number] [place] [address] Mar, [facility] [address] [id number] [place] [address] Mar, [facility] [address] [id number] [place] [address] Mar, [facility] [address] [id number] [place] [address] 9[address] Mar, [facility] [address] [id number] [place] [address] Mar, [facility] [address] [id number] [place] [address] 2544 Mar, [facility] [address] [id number] [place] [address] Mar, [facility] [address] [id number] [place] [address] 69[address] Mar, [facility] [address] [id number] [place] [address] 97[address] Mar, [facility] [place] [facility] [address] [id number] [place] [address] 29[address] Mar, [facility] [place] [facility] [address] [id number] [place] [address] 1694 Mar, [facility] [place] [facility] [address] [id number] [place] [address] 3145 Mar, [facility] [place] [facility] [address] [id number] [place] [address] Feb, [facility] [place] [facility] [address] [id number] [place] [address] 4459 Feb, [facility] [place] [facility] [address] [id number] [place] [address] 7194 Feb, [facility] [place] [facility] [address] [id number] [place] [address] 1464 Feb, [facility] [place] [facility] [address] [id number] [place] [address] 0[address] Feb, [facility] [place] [facility] [address] [id number] [place] [address]- 0180 Feb, [facility] [place] [facility] [address] [id number] [place] [address] 6[address] Feb, [facility] [place] [facility] [address] [id number] [place] [address] 8064 Feb, [facility] [place] [facility] [address] [id number] [address] 1587 Feb, [facility] [place] [facility] [address] [id number] [place] [address]- 5571 Feb, [facility] [place] [facility] [address] [id number] [place] [address]- 7372 Feb, [facility] [place] [facility] [address] [id number] [place] [address]- 7740 Feb, [facility] [place] [facility] [address] [id number] [place] [address] 4007 Feb, [facility] [place] [facility] [address] [id number] [place] [address] 3210 Feb, [facility] [place] [facility] [address] [id number] [place] [address] Feb, [facility] [place] [facility] [address] [id number] [place] [address] 5514 Feb, [facility] [place] [facility] [address] [id number] [place] [address]- 4600 Jan, [facility] [place] [facility] [address] [id number] [place] [address], [place] [address] Jan, [facility] [place] [facility] [address] [id number] [place] [address] 7637 Jan, [facility] [place] [facility] [address] [id number] [place] [address]- 4453 Jan, [facility] [place] [facility] [address] [id number], [place] [address] Jan, [facility] [place] [facility] [address] [id number] [place] [address] 3003 Jan, [facility] [place] [facility] [address] [facility] [id number], [place] [address] Jan, [facility] [place] [facility] [address] [id number], [place] [address] 46[address] Jan, [facility] [place] [facility] [address] [id number], [place] [address] 0[address] Jan, [facility] [place] [facility] [address] [id number], [place] [address]83 Jan, [facility] [place] [facility] [address] [facility] [id number], [place] [address]- 5[address] Jan, [facility] [place] [facility] [address] [facility] [id number][place] [address]- 8702 Jan, [facility] [place] [facility] [address] [id number] [place] [address] 4256 11 Jan, 2012 [facility] [place] [facility] [address] [id number] [place] [address]- 2406 11 Jan, 2012 [facility] [place] [facility] [address] [id number] [place] [address] 2546 08 Jan, 2012 [facility] [place] [facility] [address] [id number] [place] [address] 2546 05 Jan, 2012 [facility] [place] [facility] [address] [id number] [place] [address] 2540 04 Jan, 2012 [facility] [place] [facility] [address] [id number] [place] [address]- 6676 21 Dec, 2011 [facility] [place] [facility] [address] [id number] [place] [address]- 9417 20 Dec, 2011 [facility] [place] [facility] [address] [id number] [place] [address]- 0485 18 Dec, 2011 [facility] [place] [facility] [address] [id number] [place] [address] 2544 18 Dec, 2011 [facility] [place] [facility] [address] [id number] [place] [address] 2549 10 Dec, 2011 [facility] [place] [facility] [address] [id number] [place] [address] 2546 10 Dec, 2011 [facility] [place] [facility] [address] [id number] [place] [address] 2546 10 Dec, 2011 [facility] [place] [facility] [address] [id number] [place] [address] 2546 07 Dec, 2011 [facility] [place] [facility] [address] [id number] [place] [address] 2546 30 Nov, 2011 [facility] [place] [facility] [address] [id number] [place] [address] 2546 25 Nov, 2011 [facility] [place] [facility] [address] [id number] [place] [address]- 2800 Nov, [facility] [place] [facility] [address] [id number] [place] [address]- 1246 Nov, [facility] [place] [facility] [address] [id number] [place] [address]- 3236 Nov, [facility] [place] [facility] [address] [id number] [place] [address]- 5266 Nov, [facility] [place] [facility] [address] [id number] [place] [address]- 3342 Oct, [facility] [place] [facility] [address] [id number] [place] [address]- 7943 Oct, [facility] [place] [facility] [address] [id number] [place] [address]- 4604 Oct, [facility] [place] [facility] [address] [id number] [place] [address]- 7277 Oct, [facility] [place] [facility] [address] [id number] [place] [address]- 5704 Oct, [facility] [place] [facility] [address] [id number] [place] [address]- 0769 Oct, [facility] [place] [facility] [address] [id number] [place] [address]- 0633 Oct, [facility] [place] [facility] [address] [id number] [place] [address]- 7640 Sep, [facility] [place] [facility] [address] [id number] [place] [address]- 6679 Sep, [facility] [place] [facility] [address] [id number] [place] [address]- 0009 Sep, [facility] [place] [facility] [address] [id number] [place] [address]- 3590 Sep, [facility] [place] [facility] [address] [id number] [place] [address]- 2493 Sep, [facility] [place] [facility] [address] [id number] [place] [address]- 0369 15 Sep, 2011 [facility] [address] [id number] [place] [address]- 5186 14 Sep, 2011 [facility] [place] [facility] [address] [id number] [place] [address]- 7794 Sep, [facility] [address] [id number] [place] [address]- 0020 05 Sep, 2011 [facility] [place] [facility] [address] [id number] [place] [address]- 0951 Sep, [facility] [address] [id number] [place] [address]- 1565 August, [facility] [address] [id number] [place] [address]- 2267 August, [facility] [address] [id number] [place] [address]- 0108 August, [facility] [address] [id number] [place] [address]- 3184 August, [facility] [place] [facility] [address] [id number] [place] [address]- 6663 August, [facility] [address] [id number] [place] [address]- 5074 Jul, [facility] [place] [facility] [address] [id number] [place] [address]- 7087 Jul, [facility] [place] [facility] [address] [id number] [place] [address]- 4493 25 Jul, 2011 [facility] [place] [facility] [address] [id number] [place] [address]- 1668 17 Jul, 2011 [facility] [place] [facility] [address] [id number] [place] [address]- 7577 Jul, [facility] [place] [facility] [address] [id number] [place] [address]- 0540 Jul, [facility] [place] [facility] [address] [id number] [place] [address]- 8828 Jul, [facility] [place] [facility] [address] [id number] [place] [address]- 0159 Jun, [facility] [place] [facility] [address] [id number] [place] [address]- 1756 Jun, [facility] [place] [facility] [address] [id number] [place] [address]- 0717 Jun, [facility] [place] [facility] [address] [id number] [place] [address]- 5384 Jun, [facility] [place] [facility] [address] [id number] [place] [address]- 8616 Jun, [facility] [place] [facility] [address] [id number] [place] [address]- 7436 May, [facility] [place] [facility] [address] [id number] [place] [address]- 2236 May, [facility] [place] [facility] [address] [id number] [place] [address]- 2149 May, [facility] [place] [facility] [address] [id number] [place] [address]- 9822 May, [facility] [place] [facility] [address] [id number] [place] [address]- 8364 May, [facility] [place] [facility] [address] [id number] [place] [address]- 1870 May, [facility] [place] [facility] [address] [id number] [place] [address]- 2820 Apr, [facility] [place] [facility] [address] [id number] [place] [address]- 5406 Mar, [facility] [place] [facility] [address] [id number] [place] [address]- 3228 Feb, [facility] [place] [facility] [address] [id number] [place] [address]- 2353 07 Feb, 2011 [facility] [address] [id number] [place] [address]- 1220 03 Feb, 2011 [facility] [place] [facility] [address] [id number] [place] [address]843 02 Feb, 2011 [facility] [place] [facility] [address] [id number] [place] [address]- 6372 31 Jan, 2011 [facility] [place] [facility] [address] [id number] [place] [address]- 9024 27 Jan, 2011 [facility] [place] [facility] [address] [id number] [place] [address]- 2538 26 Jan, 2011 [facility] [place] [facility] [address] [id number] [place] [address]- 5512 24 Jan, 2011 [facility] [place] [facility] [address] [id number] [place] [address]- 7086 14 Jan, 2011 [facility] [place] [facility] [address] [id number] [place] [address]- 6240 Dec, [facility] [place] [facility] [address] [id number] [place] [address]- 1058 Oct, [facility] [place] [facility] [address] [id number] [place] [address]- 8132 August, [facility] [place] [facility] [address] [id number] [place] [address]- 6298 29 Mar, 2010 [facility] [place] [facility] [address] [id number] [place] [address]- 5928 27 Mar, 2010 [facility] [place] [facility] [address] [id number] [place] [address]- 4967 16 Mar, 2010 [facility] [place] [facility] [address] [id number] [place] [address]- 5897 15 Mar, 2010 [facility] [place] [facility] [address] [id number] [place] [address]- 4992 15 Mar, 2010 [facility] [place] [facility] [address] [id number] [place] [address]- 3557 08 Mar, 2010 [facility] [place] [facility] [address] [id number] [place] [address]- 0522 Mar, [facility] [place] [facility] [address] [id number] [place] [address]- 8329 Feb, [facility] [place] [facility] [address] [id number] [place] [address]- 4677 24 Feb, 2010 [facility] [place] [facility] [address] [id number] [place] [address]- 7384 15 Feb, 2010 [facility] [place] [facility] [address] [id number] [place] [address]- 7224 Jan, [facility] [place] [facility] [address] [id number] [place] [address]- 9166 Jan, [facility] [place] [facility] [address] [id number] [place] [address]- 2751 Jan, [facility] [place] [facility] [address] [id number] [place] [address]- 8703 Nov, [facility] [place] [facility] [address] [id number] [place] [address]- 7551 Sep, [facility] [place] [facility] [address] [id number] [place] [address]- 3035 August, [facility] [place] [facility] [address] [id number] [place] [address]- 1146 Mar, [facility] [place] [facility] [address] [id number] [place] [address]- 2974 Mar, [facility] [place] [facility] [address] [id number] [place] [address]- 2417 17 Feb, 2009 [facility] [place] [facility] [address] [id number] [place] [address]- 2978 10 Feb, 2009 [facility] [place] [facility] [address] [id number] [address]- 2[address] Feb, [facility] [address], [place] [address]- 4476 Feb, [facility] [address], [place] [address]- 9349 Feb, [facility] [address], [place] [address]- 5877 Jan, [facility] [address], [place] [address]- 1053 Jan, [facility] [address], [place] [address]- 7411 Jan, [facility] [id number] [place] [address]- 9715 Jan, [facility] [address], [place] [address]- 4558 Nov, [facility] [address], [place] [address]- 6096 Sep, [facility] [address], [place] [address]- 3271 August, [facility] [address], [place] [address]- 0140 Jul, [facility] [address], [place] [address]- 0011 May, IMMUNIZATIONS No Known Immunizations SOCIAL HISTORY Never Assessed REASON FOR VISIT med refills PLAN OF CARE VITAL SIGNS MEDICATIONS Medication Instructions Dosage Frequency Start Date End Date Duration Status Lamictal 25 MG Orally every night 3 tablets Apr, 30 days Active Abilify 10 mg TAKE 1 TABLET ONE TIME DAILY 30 days Active Remeron 45 MG Orally Once a [...] Knee Surgery 07/16/17 Hospitalization History [facility] [place]- left hand/wrist swelling 10/09/2017
--- OUTSIDE RECORDS SUMMARY | 2018-02-10 11:11 | XMS REPORT ---
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 Active 79607513 Problem Colon polyp K63.5 Active 98843067 Problem Screening breast examination Z12.39 Active 427076518 Problem Bilateral low back pain without sciatica M54.5 Active 878360399 Problem Postmenopausal Z78.0 Active 98100718 Problem Essential tremor G25.0 Active 90252442 Problem Osteopenia M85.80 Active 122749327 Problem Hyperlipidemia E78.5 Active 29921551 Problem Cigarette nicotine dependence without complication F17.210 Active 34348164 Problem Vascular dementia without behavioral disturbance F01.50 Active 11152336927884283 Problem Arthritis M19.90 Active 7735137 Problem Chronic atrial fibrillation I48.2 Active 363262586 Problem Dementia without behavioral disturbance, unspecified dementia type F03.90 Active 09412949 Problem Other chronic pancreatitis K86.1 Active 612449927 Problem Xeroderma Q80.9 Active 30192755 Problem Chronic obstructive pulmonary disease with acute lower respiratory infection J44.0 Active 987860486 Problem Type 2 diabetes mellitus with diabetic neuropathy, without long-term current use of insulin E11.40 Active 67415675 Problem Atherosclerosis of [place] artery of both lower extremities with intermittent claudication I70.213 Active 918529396320379 Problem Hammertoe of right foot M20.41 Active 092097727 Problem Hammertoe of left foot M20.42 Active 703294477 Problem Migraine without aura and with status migrainosus, not intractable G43.001 Active 020835283 Problem Migraine without aura and without status migrainosus, not intractable G43.009 Active 804147023 Problem Major depressive disorder, recurrent episode, moderate F33.1 Active 339178863 Problem Unspecified psychosis F29 Active 18264797 Problem Cervicalgia M54.2 Active 1760504393021 Problem Diabetic polyneuropathy associated with type 2 diabetes mellitus E11.42 Active 82921699 Problem COPD (chronic obstructive pulmonary disease) J44.9 Active 40408683 Problem Atherosclerotic heart disease of [place]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 I25.118 Active 7013536235726 Problem Gastroparesis K31.84 Active 614382219 Problem Stress incontinence of urine N39.3 Active 24238268 Problem Osteoporosis M81.0 Active 62489993 Problem Controlled type 2 diabetes mellitus without complication, without long -term current use of insulin E11.9 Active 333705001 Problem Barretts esophagus K22.70 Active 049005589 Problem Chronic fatigue R53.82 Active 17206546 Problem History of common bile duct surgery Z98.89 Active 186832389 Problem Bipolar affective disorder, currently depressed, moderate F31.32 Active 760753143 Problem Generalized anxiety disorder F41.1 Active 449851620 Problem Gastroesophageal reflux disease, esophagitis presence not specified K21.9 Active 020141711 Problem Coronary artery disease involving [place] coronary artery of [place] heart with other form of angina pectoris I25.118 Active 2302173636526 Problem Postconcussion syndrome F07.81 Active 60546538 Problem Chronic pain syndrome G89.4 Active 671279584 Problem Type 2 diabetes mellitus with diabetic peripheral angiopathy without gangrene E11.51 Active 925751015 Problem Paroxysmal atrial fibrillation I48.0 Active 343070295 Problem Unspecified atherosclerosis of [place] arteries of extremities, unspecified extremity I70.209 Active 479712992708378 Problem Acute exacerbation of chronic obstructive pulmonary disease (COPD) J44.1 Active 233509247 Problem Crohn''s disease without complication, unspecified gastrointestinal tract location K50.90 Active 49734276 ALLERGIES No Information ENCOUNTERS Encounter Location Date Diagnosis [facility], [place] [address] [facility] [id number] [address] Feb, [facility], [place] [address] [facility] [id number], [place] [address] Dec, [facility], [place] [address] [facility] [id number], [place] [address] Dec, High risk medication use Z79.899 [facility], [place] [address] [address] 8[address] 25 Dec, 2017 [facility], [place] [id number] [place] [address] 09501- 1004 24 Dec, 2017 [facility], [place] [address] [address] 9568 19 Dec, 2017 [facility], [place] [id number] [place] [address] 57714- 0689 19 Dec, 2017 [facility], [place] [id number] [place] [address] 28078- 8524 18 Dec, 2017 [facility], [place] [id number] [place] [address] 76870- 4211 14 Dec, 2017 [facility], [place] [id number] [place] [address] 00578- 3286 14 Dec, 2017 [facility], [place] [id number] [place] [address] 65126- 1044 13 Dec, 2017 [facility], [place] [address] [address] 5801 Dec, Type 2 diabetes mellitus with diabetic peripheral angiopathy without gangrene E11.51 ; Contusion of face, initial encounter S00.83XA and Bronchitis J40 [facility], [place] [address] [address] 9692 Dec, [facility], [place] [id number] [place] [address] 50865- 3070 06 Dec, 2017 [facility], [place] [address] [address] 7494 Nov, [facility], [place] [address] [address] 0039 Nov, Onychomycosis B35.1 ; Hammertoe of left foot M20.42 ; Hammertoe of right foot M20.41 and Type 2 diabetes mellitus with diabetic neuropathy, without long-term current use of insulin E11.40 [place] [id number] [place] [address] 31831- 0711 Nov, [place] [id number] [place] [address] 13627- 7750 Nov, Bronchitis J40 [facility], [place] [id number] [place] [address] 49485- 4256 Oct, [place] [id number] [place] [address] 58050- 7151 Oct, Bipolar affective disorder, currently depressed, moderate F31.32 ; Vascular dementia without behavioral disturbance F01.50 and Generalized anxiety disorder F41.1 [place] [id number] [place] [address] 43732- 5529 Oct, [place] [id number] [place] [address] 04150- 3879 Oct, [place] [id number] [place] [address] 08891- 8815 Oct, Edema of both legs R60.0 [place] [id number] [place] [address] 22323- 0716 Oct, [place] [id number] [place] [address] 86594- 7956 Sep, [place] [id number] [place] [address] 91312- 7077 Sep, [place] [id number] [place] [address] 94534- 5538 Sep, [place] [id number] [place] [address] 95187- 8696 18 Sep, 2017 Encounter for well woman exam with routine gynecological exam Z01.419 ; Screening for STDs (sexually transmitted diseases) Z11.3 ; Screening breast examination Z12.31 and Overweight (BMI 25.0-29.9) E66.3 [place] [id number] [place] [address] 51784- 3023 Sep, [facility], [place] [address] [address]31 Sep, [facility], [place] [id number] [place] [address] 301093- 9061 Sep, [facility], [place] [id number] [place] [address] 195876- 4419 August, [facility], [place] [id number] [place] [address] 15163- 1727 August, [facility], [place] [id number] [place] [address] 81081- 7557 August, Type 2 diabetes mellitus with diabetic neuropathy, without long-term current use of insulin E11.40 and Sprain of right ankle, unspecified ligament, initial encounter S93.401A [facility], [place] [id number] [place] [address] 55928- 7391 August, [facility], [place] [id number] [address]- 5609 August, [facility], [place] [id number] [place] [address] 28550- 0491 August, [facility], [place] [address] [address] 9459 August, Gastroesophageal reflux disease, esophagitis presence not specified K21.9 [facility], [place] [address] [address] 1978 August, [facility], [place] [address] [address] August, [facility], [place] [address] 5646 August, [facility], [place] [address]27 August, Type 2 diabetes mellitus with diabetic neuropathy, without long-term current use of insulin E11.40 and Elevated liver enzymes R74.8 [facility], [place] [id number] [place] [address] 09080- 0877 Jul, [facility], [place] [address] 35258- 5731 Jul, Cough R05 [facility], [place] [id number] [place] [address] 94295- 0358 Jul, [facility], [place] [address] 28438- 5605 Jul, [facility], [place] [id number] [place] [address] 30841- 7523 Jul, Bipolar affective disorder, currently depressed, moderate F31.32 ; Vascular dementia without behavioral disturbance F01.50 and Generalized anxiety disorder F41.1 [facility], [place] [id number] [place] [address] 76749- 9601 Jul, [facility], [place] [id number] [place] [address] 62397- 3218 Jul, Type 2 diabetes mellitus with diabetic neuropathy, without long-term current use of insulin E11.40 and Elevated liver enzymes R74.8 [facility], [place] [id number] [place] [address] 08575- 5774 Jul, [facility], [place] [id number] [place] [address] 47983- 1635 Jul, [facility], [place] [id number] [place] [address] 66709- 9104 17 Jul, 2017 [facility], [place] [id number] [place] [address] 42928- 4803 Jul, Post-menopausal Z78.0 [facility], [place] [id number] [place] [address] 96026- 3651 Jul, Stress incontinence of urine N39.3 [facility], [place] [id number] [place] [address] 63886- 0875 Jul, [facility], [place] [id number] [place] [address] 41939- 5251 Jul, [facility], [place] [id number] [place] [address] 55077- 5154 Jul, Stress incontinence of urine N39.3 and Cough R05 [facility], [place] [id number] [place] [address] 62693- 9142 Jul, [facility], [place] [id number] [place] [address] 88348- 7354 Jul, [facility], [place] [id number] [place] [address] 35310- 4530 Jul, [facility], [place] [id number] [place] [address] 67853- 3727 Jul, Gastroesophageal reflux disease, esophagitis presence not specified K21.9 [facility], [place] [id number] [place] [address] 23482- 8048 Jun, Diabetic polyneuropathy associated with type 2 diabetes mellitus E11.42 [facility], [place] [id number] [place] [address] 69952- 9266 Jun, Diabetic polyneuropathy associated with type 2 diabetes mellitus E11.42 ; Coronary artery disease involving [place] coronary artery of [place] heart with other form of angina pectoris I25.118 and Paroxysmal atrial fibrillation I48.0 [facility], [place] [id number] [place] [address] 82403- 7495 Jun, [facility], [place] [id number] [place] [address] 89600- 9451 Jun, [facility], [place] [id number] [place] [address] 33630- 9731 Jun, Gastroenteritis K52.9 [facility], [place] [id number] [place] [address] 65732- 6387 Jun, Gastroenteritis K52.9 [facility], [place] [id number] [place] [address] 33927- 5190 Jun, [place] [id number] [place] [address] 78104- 6352 Jun, [place] [id number] [place] [address] 86018- 5131 Jun, Sprain of right ankle, unspecified ligament, initial encounter S93.401A ; Type 2 diabetes mellitus with diabetic neuropathy, without long-term current use of insulin E11.40 ; Atherosclerosis of [place] artery of both lower extremities with intermittent claudication I70.213 ; Atherosclerotic heart disease of [place]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 I25.118 ; Chronic atrial fibrillation I48.2 and Crohn''s disease without complication, unspecified gastrointestinal tract location K50.90 [facility] [id number] [place] [address] 93118 -8831 17 Jun, 2017 Cough R05 and Chronic obstructive pulmonary disease with acute lower respiratory infection J44.0 [place] [id number] [place] [address] 63743- 3194 16 Jun, 2017 [place] [id number] [place] [address] 66683- 1931 15 Jun, 2017 Coughing R05 ; Unspecified atherosclerosis of [place] arteries of extremities, unspecified extremity I70.209 ; Type 2 diabetes mellitus with diabetic peripheral angiopathy without gangrene E11.51 ; Crohn''s disease without complication, unspecified gastrointestinal tract location K50.90 ; Other chronic pancreatitis K86.1 and Chronic atrial fibrillation I48.2 [facility] [id number] [place] [address] 80016 -6255 Jun, [place] [id number] [place] [address] 88670- 6133 Jun, Bipolar affective disorder, currently depressed, moderate F31.32 ; Vascular dementia without behavioral disturbance F01.50 and Generalized anxiety disorder F41.1 [place] [id number] [place] [address] 16190- 1233 May, Generalized anxiety disorder F41.1 [place] [id number] [place] [address] 11980- 7178 May, [facility], [place] [id number] [place] [address] 81314- 5418 May, [facility], [place] [id number] [place] [address] 01425- 7732 May, Coughing R05 [place] [address] 06601- 0210 May, [facility], [place] [address] 24537- 6387 May, Bipolar affective disorder, currently depressed, moderate F31.32 ; Vascular dementia without behavioral disturbance F01.50 and Generalized anxiety disorder F41.1 [place] [address] 38914- 5690 Apr, Generalized anxiety disorder F41.1 [place] [address] 69795- 4438 Apr, [place] [id number] [place] [address] 35518- 5363 Apr, Vascular dementia without behavioral disturbance F01.50 ; Generalized anxiety disorder F41.1 and Bipolar affective disorder, currently depressed, moderate F31.32 [place] [id number] [place] [address] 55898- 4853 Apr, Generalized anxiety disorder F41.1 [facility] [id number] [place] [address] 13972 -3919 Apr, Cough R05 and Acute exacerbation of chronic obstructive pulmonary disease (COPD) J44.1 [place] [address] 15888- 6719 Apr, [facility] [id number] [place] [address] 79857 -8267 Mar, Cough R05 and Cigarette nicotine dependence without complication F17.210 [place] [address] 09003- 5252 Mar, [place] [id number] [place] [address] 40627- 7989 Feb, Generalized anxiety disorder F41.1 ; Major depressive disorder, recurrent episode, moderate F33.1 ; Vascular dementia without behavioral disturbance F01.50 and Unspecified psychosis F29 [place] [id number] [place] [address] 00396- 9611 Feb, [place] [address] [id number] [place] [address] 85494- 9081 Feb, [place] [id number] [place] [address] 82108- 8426 Feb, Generalized anxiety disorder F41.1 [place] [id number] [place] [address] 35353- 7289 Feb, Generalized anxiety disorder F41.1 [place] [address] [place] [id number] [place] [address] 99401- 1801 Feb, Dizziness R42 ; Chronic fatigue R53.82 ; Postconcussion syndrome F07.81 ; Fall, initial encounter W19.XXXA and Disorientation R41.0 [place] [id number] [place] [address] 68156- 3300 Feb, Postconcussion syndrome F07.81 ; Injury of head, initial encounter S09.90XA ; Fall, initial encounter W19.XXXA ; Disorientation R41.0 and Acute cystitis with hematuria N30.01 [place] [id number] [place] [address] 72242- 2312 Jan, Gastroesophageal reflux disease, esophagitis presence not specified K21.9 ; Post-menopausal Z78.0 and Migraine without aura and without status migrainosus, not intractable G43.009 [place] [id number] [place] [address] 17994- 1305 Jan, [place] [id number] [place] [address] 96055- 5077 Jan, Generalized anxiety disorder F41.1 ; Major depressive disorder, recurrent episode, moderate F33.1 ; Vascular dementia without behavioral disturbance F01.50 and Unspecified psychosis F29 [place] [id number] [place] [address] 19315- 0544 Jan, Pneumonia of left lower lobe due to infectious organism J18.1 [place] [id number] [place] [address] 98672- 9605 Jan, Migraine without aura and with status migrainosus, not intractable G43.001 [facility] [id number] [place] [address] 60998 -3463 Jan, Migraine without aura and without status migrainosus, not intractable G43.009 [place] [id number] [place] [address] 26814- 7112 Dec, Hematoma T14.8 [place] [address] 52613- 4995 Dec, [facility] [id number] [place] [address] 28920 -7947 Nov, Fatigue, unspecified type R53.83 [place] [id number] [place] [address] 21396- 4415 Nov, Scabies B86 and Coronary artery disease involving [place] coronary artery of [place] heart with other form of angina pectoris I25.118 [place] [id number] [place] [address] 71020- 8798 Nov, [place] [address] [place] [id number] [place] [address] 33127- 4658 Nov, [place] [address] 80537- 5624 Oct, [place] [address] [place] [id number] [place] [address] 28627- 8855 Oct, Generalized anxiety disorder F41.1 and Major depressive disorder, recurrent episode, moderate F33.1 [facility], [place] [address] [address]- 7707 19 Oct, 2016 Cramp of both lower extremities R25.2 [facility], [place] [id number] [place] [address] 32633- 1527 Oct, Leg cramps R25.2 [facility], [place] [id number] [place] [address] 54060- 1319 Oct, Chronic pain syndrome G89.4 [facility], [place] [id number] [place] [address] 99125- 8343 Oct, [facility], [place] [id number] [place] [address] 61229- 2011 Oct, [facility], [place] [id number] [place] [address] 73866- 8141 Oct, Routine gynecological examination Z01.419 and Screening for breast cancer Z12.31 [facility], [place] [id number] [place] [address] 18412- 0593 Sep, Diarrhea R19.7 [facility], [place] [id number] [place] [address] 52105- 9464 Sep, Back pain M54.9 [facility], [place] [id number] [place] [address] 97382- 9275 Sep, [facility], [place] [id number] [place] [address] 51339- 2247 Sep, [facility] [id number] [place] [address] 65478 -7406 August, Xeroderma Q80.9 [facility], [place] [id number] [place] [address] 66272- 8650 August, Dementia without behavioral disturbance, unspecified dementia type F03.90 [facility], [place] [id number] [place] [address] 63463- 0155 August, Chronic pain syndrome G89.4 [place] [id number] [place] [address] 71264- 7163 August, [place] [address] 96531- 3879 August, Hyperlipidemia E78.5 ; Other fatigue R53.83 and Other specified hypotension I95.89 [facility] [address] 16761 -5842 August, Dysuria R30.0 ; Other fatigue R53.83 and Other specified hypotension I95.89 [place] [address] 64118- 9295 August, [place] [address] 71765- 2963 Jul, Pain in left knee M25.562 and Gastroenteritis K52.9 [place] [address] 84530- 3650 Jul, [place] [address] 79134- 3671 Jul, Diarrhea R19.7 [facility] [place] [address] 85336 -0616 Jul, Spider bite, accidental or unintentional, initial encounter T63.301A [place] [address] [address] Jul, Primary osteoarthritis of right knee M17.11 and Arthritis M19.90 [place] [address] [address] [place] [id number] [place] [address] Jul, Generalized anxiety disorder F41.1 and Major depressive disorder, recurrent episode, moderate F33.1 [place] [address] [address] 07 Jul, 2016 Type 2 diabetes mellitus with diabetic polyneuropathy E11.42 and Temporal headache R51 [place] [address] [address] Jul, Back pain M54.9 [facility], [place] [address] [address] Jul, [facility] [place] [address] [address] Jul, [facility], [place] [address] [address] 30 Jun, 2016 Nausea R11.0 [facility] [address] [address] Jun, Acute suppurative otitis media of both ears without spontaneous rupture of tympanic membranes, recurrence not specified H66.003 and COPD exacerbation J44.1 [place] [address] 68802- 7869 Jun, Generalized anxiety disorder F41.1 [place] [address] 62617- 5243 16 Jun, [address] [facility] [address] [address] Jun, [facility] [address] [address] Jun, Shortness of breath R06.02 and COPD exacerbation J44.1 [place] [address] 73165- 3728 10 Jun, 2016 Eczema, unspecified type L30.9 [facility] [place] [address] 55112- 5390 09 Jun, 2016 [facility] [place] [address] 36397- 8355 24 May, 2016 [place] [address] 28359- 8218 May, Muscle cramping R25.2 [place] [id number] [place] [address] May, [facility], [place] [id number] [place] [address] 90022- 0448 Apr, Diarrhea R19.7 [facility], [place] [id number] [place] [address] 95422- 9769 Apr, [facility], [place] [address] 51005- 9566 Apr, Chronic pain syndrome G89.4 [place] [address] 15564- 4384 Apr, Cramp of both lower extremities R25.2 and Vascular dementia without behavioral disturbance F01.50 [place] [id number] [place] [address] 29684- 4117 Apr, Type 2 diabetes mellitus with diabetic polyneuropathy E11.42 and Cigarette nicotine dependence without complication F17.210 [place] [id number] [place] [address] 89080- 8005 Mar, Generalized anxiety disorder F41.1 [place] [address] 73263- 3518 Feb, Generalized anxiety disorder F41.1 and Major depressive disorder, recurrent episode, moderate F33.1 [place] [id number] [place] [address] 90684- 3418 Feb, [facility] [id number] [place] [address] 86082 -5571 Feb, Dysuria R30.0 and Acute cystitis with hematuria N30.01 [facility], [place] [address] 47771- 9052 Jan, [facility] [place] [id number] [place] [address] 43595- 6263 Jan, [facility], [place] [address] 30831- 9080 Jan, [facility], [place] [id number] [place] [address] 03816- 9459 Jan, [facility] [id number] [place] [address] 93304 -5075 10 Jan, 2016 Wasp sting, accidental or unintentional, initial encounter T63.461A [facility], [place] [id number] [place] [address] 57002- 3424 06 Jan, 2016 Encounter for immunization Z23 [facility] [place] [address] 21444- 2881 Jan, [facility] [place] [address] 69606- 6583 Jan, [facility] [place] [id number] [place] [address] 13729- 7202 28 Dec, 2015 Generalized anxiety disorder F41.1 and Major depressive disorder, recurrent episode, moderate F33.1 [facility] [place] [id number] [place] [address] 43686- 5823 21 Dec, 2015 Routine gynecological examination Z01.419 ; Postmenopausal Z78.0 ; Screening breast examination Z12.39 ; Osteopenia M85.80 and Breast cancer screening Z12.39 [facility], [place] [id number] [place] [address] 00488- 1090 20 Dec, 2015 [facility] [place] [id number] [place] [address] 79453- 1075 19 Dec, 2015 [facility] [place] [id number] [place] [address] 18381- 9531 16 Dec, 2015 [facility] [place] [id number] [place] [address] 49200- 6942 16 Dec, 2015 [facility] [place] [id number] [place] [address] 58603- 1802 14 Dec, 2015 [facility] [place] [id number] [place] [address] 67112- 4953 06 Dec, 2015 [facility] [place] [id number] [place] [address] 0613 Nov, [facility] [id number] [place] [address] Nov, Cough R05 ; Other viral agents as the cause of diseases classified elsewhere B97.89 and Acute upper respiratory infection, unspecified J06.9 [facility], [place] [id number] [place] [address]- 3530 Nov, [facility] [place] [id number] [place] [address]- 6016 Nov, [facility] [place] [id number] [place] [address]- 0073 Nov, [facility] [place] [id number] [place] [address]- 7254 Nov, [facility] [place] [id number] [place] [address]- 9418 Nov, [facility] [place] [id number] [place] [address]- 6524 Oct, [facility], [place] [id number] [address]- 7061 Oct, [facility], [place] [address] [address]- 3522 Oct, [facility], [place] [address] [address]- 9109 Oct, Chronic pain syndrome G89.4 [facility], [place] [address] [address]- 6092 Sep, Generalized anxiety disorder F41.1 and Major depressive disorder, recurrent episode, moderate F33.1 [facility], [place] [address] [address]- 8940 Sep, [facility], [place] [id number] [address]- 6277 Sep, [facility] [place] [id number] [place] [address] 31429- 1236 14 Sep, 2015 Generalized anxiety disorder F41.1 [facility], [place] [id number] [place] [address] 35844- 9146 13 Sep, 2015 Cramp of both lower extremities R25.2 and Cervicalgia M54.2 [place] [id number] [place] [address] 85829- 1311 06 Sep, 2015 Generalized anxiety disorder F41.1 [facility], [place] [id number] [place] [address] 43660- 7908 Sep, [facility] [id number] [place] [address] 73325 -1582 August, Rash R21 ; Itching L29.9 and Allergic response, subsequent encounter T78.40XD [place] [id number] [place] [address] 74284- 5269 August, Primary insomnia F51.01 [facility] [id number] [place] [address] 43136 -1556 August, Rash R21 ; Itching L29.9 and Allergic response, initial encounter T78.40XA [place] [id number] [place] [address] 74452- 4085 August, [place] [id number] [place] [address] 25445- 6367 August, Cramp of both lower extremities R25.2 [place] [id number] [place] [address] 68696- 4183 August, Back pain M54.9 [place] [id number] [place] [address] 60726- 4966 August, [facility], [place] [id number] [place] [address] 23159- 8324 August, [facility] [address] [place] [address] August, Cramp of both lower extremities R25.2 [facility], [place] [id number] [place] [address] 47966- 5989 August, [facility], [place] [id number] [place] [address] 08183- 4817 August, Syncope R55 ; Paroxysmal atrial fibrillation I48.0 ; Dementia without behavioral disturbance, unspecified dementia type F03.90 and Chronic pain syndrome G89.4 [facility], [place] [id number] [place] [address] 06939- 3729 August, Type 2 diabetes mellitus with diabetic polyneuropathy E11.42 and Syncope R55 [facility], [place] [id number] [place] [address] 03356- 4130 Jul, [facility], [place] [id number] [place] [address] 79291- 1778 Jul, [facility], [place] [id number] [place] [address] 47142- 2846 Jul, [facility], [place] [id number] [place] [address] 85250- 3539 Jul, [facility], [place] [id number] [place] [address] 77656- 3357 Jul, [facility], [place] [id number] [place] [address] 37412- 5737 Jul, UTI (urinary tract infection) N39.0 [facility], [place] [id number] [address]- 1345 Jul, [facility], [place] [id number] [place] [address] 82242- 0179 Jul, Major depressive disorder, recurrent episode, moderate F33.1 and Generalized anxiety disorder F41.1 [facility], [place] [id number] [address]- 5185 Jul, Generalized anxiety disorder F41.1 [place] [id number] [address]- 1427 14 Jul, 2015 Diarrhea R19.7 [facility], [place] [id number] [address]- 1946 14 Jul, 2015 [facility], [place] [id number] [address]- 3573 Jun, [facility], [place] [id number] [place] [address] 44013 2546 Jun, Eczema L30.9 [facility], [place] [id number] [place] [address] 21551- 8596 Jun, [facility], [place] [id number] [place] [address] 49064- 5108 Jun, COPD (chronic obstructive pulmonary disease) J44.9 [facility], [place] [id number] [place] [address] 57643- 0447 Jun, [facility], [place] [id number] [address]- 4480 Jun, Major depressive disorder, recurrent episode, moderate F33.1 and Generalized anxiety disorder F41.1 [facility], [place] [id number] [address]- 5698 May, [facility], [place] [id number] [address]- 1161 May, UTI (urinary tract infection) N39.0 [facility], [place] [id number] [address]- 3285 May, [facility], [place] [id number] [address]- 4239 May, [facility], [place] [id number], [place] [address]- 4662 May, [facility], [place] [id number] [address]- 8374 May, [facility], [place] [id number] [address]- 9230 Apr, Major depressive disorder, recurrent episode, moderate F33.1 and Generalized anxiety disorder F41.1 [facility], [place] [id number] [address]- 2284 Apr, COPD (chronic obstructive pulmonary disease) J44.9 [facility], [place] [id number] [place] [address] 83556- 3019 Apr, [facility], [place] [id number] [place] [address] 14326- 8100 Apr, Atrial flutter I48.92 [facility], [place] [id number] [place] [address] 24768- 0756 Apr, [facility], [place] [id number] [place] [address] 87924- 6530 Apr, [facility], [place] [id number] [place] [address] 74707- 6972 Mar, [facility], [place] [id number] [place] [address] 63092- 0512 Mar, [facility], [place] [id number] [address]- 8860 Mar, [facility], [place] [id number] [address]- 5573 Mar, Hyperlipidemia E78.5 ; Type 2 diabetes mellitus with diabetic polyneuropathy E11.42 ; Major depressive disorder, recurrent episode, moderate F33.1 and Chronic pain syndrome G89.4 [facility], [place] [id number] [address]- 1391 Mar, [facility], [place] [id number] [address]- 6619 Mar, [facility], [place] [id number] [address]- 4005 Mar, [facility], [place] [id number] [address]- 4685 Mar, [facility], [place] [id number] [place] [address] 71012- 1396 Feb, COPD (chronic obstructive pulmonary disease) J44.9 and Back pain M54.9 [facility], [place] [id number] [place] [address] 63343- 2422 Feb, [facility], [place] [id number] [place] [address] 22033- 7723 Feb, [facility], [place] [id number] [place] [address] 82819- 4842 Feb, [facility], [place] [id number] [place] [address] 40472- 5275 Feb, [facility], [place] [id number] [place] [address] 39231- 8429 Feb, [facility], [place] [id number] [place] [address] 47672- 5916 Feb, [facility], [place] [id number] [place] [address] 20639- 0957 Feb, [facility], [place] [id number] [place] [address] 81761- 4475 Feb, [facility], [place] [id number] [place] [address] 42325- 6519 Feb, Diabetes E11.9 ; Back pain M54.9 and COPD (chronic obstructive pulmonary disease) J44.9 [facility], [place] [id number] [address]- 4694 Jan, [facility], [place] [id number] [place] [address] 31900- 8254 Jan, Major depression, recurrent F33.9 and Generalized anxiety disorder F41.1 [facility], [place] [id number] [place] [address] 27211- 0918 Jan, Chronic pain G89.29 [facility], [place] [id number] [address]- 2405 Jan, [facility], [place] [id number] [place] [address] 54725- 0592 Jan, [facility], [place] [id number] [place] [address] 16028- 6743 Jan, [facility], [place] [id number] [place] [address] 75992- 6296 Jan, [facility], [place] [id number] [place] [address] 74239- 1565 Jan, Nicotine dependence F17.200 [facility] [place] [id number] [place] [address] 99615- 9135 Jan, Nicotine dependence F17.200 and Back pain M54.9 [facility], [place] [id number] [place] [address] 62928- 1681 Jan, [facility], [place] [id number] [place] [address] 48223- 4327 28 Dec, 2014 [facility], [place] [id number] [place] [address] 11711- 2196 25 Dec, 2014 Anxiety, generalized 300.02 and Major depression, recurrent 296.30 [facility], [place] [id number] [place] [address] 53819- 2734 24 Dec, 2014 [facility] [place] [id number] [place] [address] 93188- 2772 21 Sep, 2014 [facility] [place] [id number] [place] [address] 12335- 2000 17 Dec, 2014 [facility] [place] [id number] [place] [address] 85293- 3400 15 Dec, 2014 [facility] [place] [id number] [place] [address] 50089- 8360 14 Dec, 2014 [facility], [place] [address] [place] [address]- 5144 11 Dec, 2014 [facility], [place] [id number], [place] [address]- 0895 Dec, [facility], [place] [id number] [place] [address] 01858- 8864 08 Dec, 2014 Skin tear 879.8 [facility], [place] [id number] [place] [address] 66937- 9165 Dec, Routine gynecological examination V72.31 ; Breast cancer screening V76.10 and Family history of breast cancer in first degree relative V16.3 [facility], [place] [id number] [place] [address] 24270- 5528 Dec, [facility] [place] [id number] [place] [address] 13486- 3854 Dec, [facility], [place] [id number] [place] [address] 21956- 5818 Nov, [facility], [place] [id number] [place] [address] 65408- 8766 Nov, [facility], [place] [id number] [place] [address] 77181- 0077 Nov, Poor balance 781.99 and Vascular dementia, uncomplicated 290.40 [facility], [place] [id number] [place] [address] 32825- 6814 Nov, [facility], [place] [id number] [place] [address] 99973- 4661 Nov, Major depression, recurrent 296.30 and Anxiety, generalized 300.02 [facility], [place] [id number] [place] [address] 61930- 2953 Nov, [facility], [place] [id number] [place] [address] 79151- 3410 Nov, [facility] [place] [id number] [place] [address] 44858- 7023 Nov, [facility] [place] [id number] [address]- 3750 Nov, [facility] [place] [id number] [place] [address] 16337- 3201 Nov, Vascular dementia, uncomplicated 290.40 and Lumbago 724.2 [facility] [place] [id number] [address]- 6987 Nov, [facility] [place] [id number] [place] [address] 01800- 6411 Nov, [facility] [place] [id number] [place] [address] 81839- 9302 Nov, [facility] [place] [id number] [place] [address] 43180- 9304 Oct, [facility] [place] [id number] [place] [address] 06956- 8517 Oct, [facility] [place] [id number] [address]- 4574 Oct, [facility], [place] [id number] [place] [address] 05431- 1717 Oct, COPD (chronic obstructive pulmonary disease) 496 and Hyperlipidemia 272.4 [facility] [place] [id number] [address]- 3858 Oct, Major depression, recurrent 296.30 and Anxiety, generalized 300.02 [facility] [place] [id number], [place] [address]- 0792 Oct, [facility] [place] [id number] [address]- 2908 Oct, [facility], [place] [id number] [address]- 5167 Oct, [facility], [place] [id number] [address] Sep, Lumbago 724.2 and Anxiety state, unspecified 300.00 [facility], [place] [id number], [place] [address] Sep, [facility], [place] [id number] [place] [address] Sep, [facility], [place] [id number] [address] August, [facility], [place] [id number] [place] [address] August, Major depression, recurrent 296.30 ; Anxiety, generalized 300.02 and No condition on Horton II V71.09 [facility], [place] [id number] [place] [address] August, [facility], [place] [id number] [place] [address] August, [facility], [place] [id number] [place] [address]- [address] Jul, [facility], [place] [id number], [place] [address] Jul, [facility], [place] [id number] [place] [address] Jul, [facility], [place] [id number] [address] Jun, [facility], [place] [id number], [place] [address] Jun, [facility], [place] [id number], [place] [address] Jun, [facility] [id number] [place] [address], [place] [address] Jun, [facility], [place] [id number], [place] [address] Jun, [facility], [place] [id number] [place] [address]- [address] 23 Jun, 2014 [facility] [place] [facility] [address] [id number] [place] [address] 23 Jun, 2014 [facility] [place] [facility] [address] [id number] [place] [address]- [address] 17 Jun, 2014 [facility] [place] [facility] [address] [id number] [place] [address]- 28[address] 13 Jun, 2014 [facility] [place] [facility] [address] [id number] [place] [address]- [address] 13 Jun, 2014 [facility] [place] [facility] [address] [id number] [place] [address]- [address] 10 Jun, 2014 [facility] [place] [facility] [address] [id number] [place] [address]- [address] 10 Jun, 2014 [facility] [place] [facility] [address] [facility] [id number] [place] [address]- [address] Jun, [facility] [place] [facility] [address] [id number] [place] [address]- [address] Jun, [facility] [place] [facility] [address] [id number] [place] [address]- 79[address] Jun, [facility] [place] [facility] [address] [id number] [place] [address]- [address] Jun, [facility] [place] [facility] [address] [id number] [place] [address]- [address] May, 2014 [facility] [place] [facility] [address] [id number] [place] [address]- [address] May, 2014 [facility] [place] [facility] [address] [id number] [place] [address]- [address] May, 2014 [facility] [place] [facility] [address] [id number] [place] [address]- [address]99 May, 2014 [facility] [place] [facility] [address] [facility] [id number] [place] [address]- [address] May, 2014 [facility] [place] [facility] [address] [id number] [place] [address]- [address]117 May, 2014 [facility] [place] [facility] [address] [id number] [place] [address]- [address]756 May, 2014 [facility] [place] [facility] [address] [id number] [place] [address] 2546 May, 2014 [facility] [place] [facility] [address] [id number] [place] [address] 6676 May, 2014 [facility] [place] [facility] [address] [id number] [place] [address] 5348 May, 2014 [facility] [place] [facility] [address] [id number] [place] [address] 0416 May, 2014 [facility] [place] [facility] [address] [facility] [id number] [place] [address] 2750 May, 2014 [facility] [place] [facility] [address] [id number] [place] [address] 3304 May, 2014 [facility] [place] [facility] [address] [id number] [place] [address] 3160 May, 2014 [facility] [place] [facility] [address] [facility] [id number] [place] [address] 7504 Apr, [facility] [place] [facility] [address] [id number] [place] [address] 8084 Apr, [facility] [place] [facility] [address] [id number] [place] [address]- 1077 Apr, [facility] [place] [facility] [address] [id number] [place] [address] 2541 Apr, [facility] [place] [facility] [address] [id number] [place] [address] 2549 Apr, [facility] [place] [facility] [address] [id number] [place] [address]- 4527 Apr, [facility] [place] [facility] [address] [id number] [place] [address]- 7771 Apr, [facility] [address] [id number] [place] [address]- 5583 Apr, [facility] [place] [facility] [address] [id number] [place] [address]- 7520 Apr, [facility] [place] [facility] [address] [id number] [place] [address]- 8315 Apr, [facility] [place] [facility] [address] [id number] [place] [address]- 6473 Apr, [facility] [place] [facility] [address] [id number] [place] [address]- 7019 Apr, [facility] [place] [facility] [address] [id number] [place] [address]- 6279 Mar, [facility] [address] [id number] [place] [address] 6015 31 Mar, 2014 [facility] [place] [facility] [address] [id number] [place] [address] 3390 30 Mar, 2014 [facility] [place] [facility] [address] [id number] [place] [address]- 2170 30 Mar, 2014 [facility] [place] [facility] [address] [id number] [place] [address]- 8738 29 Mar, 2014 [facility] [place] [facility] [address] [id number] [place] [address]- 7968 29 Mar, 2014 [facility] [place] [facility] [address] [id number] [place] [address]- 9933 19 Mar, 2014 [facility] [place] [facility] [address] [id number] [place] [address]- 2596 Mar, [facility] [place] [facility] [address] [id number] [place] [address] 8138 15 Mar, 2014 [facility] [place] [facility] [address] [id number] [place] [address]- 9864 15 Mar, 2014 [facility] [place] [facility] [address] [id number] [place] [address]- 3540 15 Mar, 2014 [facility] [place] [facility] [address] [id number] [place] [address]- 4546 Mar, [facility] [place] [facility] [address] [id number] [place] [address]- 0236 Mar, [facility] [place] [facility] [address] [id number] [place] [address] 9696 Mar, [facility] [place] [facility] [address] [id number] [place] [address]- 8930 Mar, [facility] [place] [facility] [address] [id number] [place] [address]- 6332 Mar, [facility] [place] [facility] [address] [id number] [place] [address]- 3743 Mar, [facility] [place] [facility] [address] [id number] [place] [address]- 1069 Mar, [facility] [place] [facility] [address] [id number] [place] [address]- 4574 Mar, [facility] [place] [facility] [address] [id number] [place] [address]- 2877 Mar, [facility] [place] [facility] [address] [id number] [place] [address]- 6326 Feb, [facility] [place] [facility] [address] [id number] [place] [address]- 5471 Feb, [facility] [place] [facility] [address] [id number] [place] [address]- 7124 Feb, [facility] [place] [facility] [address] [id number] [place] [address]- 0857 Feb, [facility] [place] [facility] [address] [id number] [place] [address]- 1141 Feb, [facility] [place] [facility] [address] [id number] [place] [address]- 8383 Feb, [facility] [place] [facility] [address] [id number] [place] [address]- 6382 Feb, [facility] [place] [facility] [address] [id number] [place] [address]- 2095 Feb, [facility] [place] [facility] [address] [id number] [place] [address] 1911 Feb, [facility] [place] [facility] [address] [id number][place] [address]- 5985 Feb, [facility] [place] [facility] [address] [id number] [place] [address]- 7593 Feb, [facility] [place] [facility] [address] [id number], [place] [address]- 1297 Feb, [facility] [place] [facility] [address] [id number] [place] [address]- 4216 Feb, [facility] [place] [facility] [address] [id number], [place] [address]- 4474 Feb, [facility] [place] [facility] [address] [id number], [place] [address]- 1682 Feb, [facility] [place] [facility] [address] [id number], [place] [address]- 9795 Feb, [facility] [place] [facility] [address] [id number][place] [address]- 6343 Feb, [facility] [place] [facility] [address] [id number], [place] [address]- 8425 Jan, [facility] [place] [facility] [address] [id number], [place] [address]- 2781 Jan, [facility] [place] [facility] [address] [id number], [place] [address]- 2144 Jan, [facility] [place] [facility] [address] [id number], [place] [address]- 8368 Jan, [facility] [place] [facility] [address] [id number] [place] [address]- 2371 Jan, [facility] [place] [facility] [address] [id number] [place] [address]- 0706 Jan, [facility] [place] [facility] [address] [id number] [place] [address]- 2254 Jan, [facility] [place] [facility] [address] [id number] [place] [address]- 1173 Jan, [facility] [place] [facility] [address] [id number] [place] [address]- 4591 Jan, [facility] [place] [facility] [address] [id number] [place] [address]- 7292 Jan, [facility] [place] [facility] [address] [id number] [place] [address]- 3110 Jan, [facility] [place] [facility] [address] [id number] [place] [address]- 6450 Dec, [facility] [place] [facility] [address] [id number] [place] [address]- 2269 Dec, [facility] [place] [facility] [address] [id number] [place] [address]- 8558 Nov, [facility] [place] [facility] [address] [id number] [place] [address]- 3253 Nov, [facility] [place] [facility] [address] [id number] [place] [address]- 6095 Nov, [facility] [place] [facility] [address] [id number] [place] [address]- 4603 Nov, [facility] [place] [facility] [address] [id number] [place] [address]- 3680 Nov, [facility] [place] [facility] [address] [id number] [place] [address]- 6438 Nov, [facility] [place] [facility] [address] [id number] [place] [address]- 0000 Nov, [facility] [place] [facility] [address] [id number] [place] [address]- 7839 Oct, 2013 [facility] [place] [facility] [address] [id number] [place] [address]- 4290 Oct, [facility] [place] [facility] [address] [id number] [place] [address]- 7237 Oct, [facility] [place] [facility] [address] [id number] [place] [address]- 2514 Oct, [facility] [place] [facility] [address] [id number] [place] [address]- 9400 Sep, [facility] [place] [facility] [address] [id number] [place] [address]- 1097 Sep, [facility] [place] [facility] [address] [id number] [place] [address]- 3463 Sep, [facility] [place] [facility] [address] [id number] [place] [address]- 0102 Sep, [facility] [place] [facility] [address] [id number] [place] [address]- 5822 Sep, [facility] [place] [facility] [address] [id number] [place] [address]- 0944 Sep, [facility] [place] [facility] [address] [id number] [place] [address]- 3092 Sep, [facility] [place] [facility] [address] [id number] [place] [address]- 7057 Sep, [facility] [place] [facility] [address] [id number] [place] [address]- 6545 Sep, [facility] [place] [facility] [address] [id number] [place] [address]- 3182 Sep, [facility] [place] [facility] [address] [id number] [place] [address]- 8844 05 Sep, 2013 [facility] [place] [facility] [address] [id number] [place] [address]- 5572 Sep, [facility] [place] [facility] [address] [id number] [place] [address]- 9684 Sep, [facility] [place] [facility] [address] [id number] [place] [address]- 7083 Sep, [facility] [place] [facility] [address] [id number] [place] [address]- 9884 August, [facility] [place] [facility] [address] [id number] [place] [address]- 3225 August, [facility] [place] [facility] [address] [id number] [place] [address]- 6588 August, [facility] [place] [facility] [address] [id number] [place] [address]- 6603 August, [facility] [place] [facility] [address] [id number] [place] [address]- 0044 August, [facility] [place] [facility] [address] [id number] [place] [address]- 2743 August, [facility] [place] [facility] [address] [id number] [place] [address]- 5020 August, [facility] [place] [facility] [address] [id number] [place] [address]- 4424 August, [facility] [place] [facility] [address] [id number] [place] [address]- 9080 August, [facility] [place] [facility] [address] [id number] [place] [address]- 8613 August, [facility] [place] [facility] [address] [id number] [place] [address]- 4684 August, [facility] [place] [facility] [address] [id number] [place] [address]- 9996 August, [facility] [place] [facility] [address] [id number] [place] [address]- 8166 August, [facility] [place] [facility] [address] [id number] [place] [address]- 7355 August, [facility] [address] [id number] [place] [address]- 3223 August, [facility] [place] [facility] [address] [id number] [place] [address]- 0396 August, [facility] [address] [id number] [place] [address]- 6795 August, [facility] [address] [id number] [place] [address]- 3458 August, [facility] [address] [id number] [place] [address]- 2480 August, [facility] [address] [id number] [place] [address]- 9216 Jul, [facility] [address] [id number] [place] [address]- 9646 Jul, [facility] [address] [id number] [place] [address]- 9893 Jul, [facility] [address] [id number] [place] [address]- 9311 Jul, [facility] [address] [id number] [place] [address]- 6016 Jun, [facility] [place] [facility] [address] [id number] [place] [address]- 8392 Jun, [facility] [place] [facility] [address] [id number] [place] [address]- 8062 Jun, [facility] [place] [facility] [address] [id number] [place] [address]- 0136 Jun, [facility] [place] [facility] [address] [id number] [place] [address]- 7146 Jun, [facility] [place] [facility] [address] [id number] [id number] 6291 Jun, [facility] [place] [facility] [address] [id number] [place] [address]- 4033 14 Jun, 2013 [facility] [place] [facility] [address] [id number] [place] [address]- 0550 14 Jun, 2013 [facility] [place] [facility] [address] [id number] [place] [address]- 1644 Jun, [facility] [place] [facility] [address] [id number] [place] [address]- 5903 Jun, [facility] [place] [facility] [address] [id number] [place] [address]- 6303 May, [facility] [place] [facility] [address] [id number] [place] [address]- 8027 May, [facility] [place] [facility] [address] [facility] [id number] [place] [address]- 6850 May, [facility] [place] [facility] [address] [id number] [place] [address]- 3625 May, [facility] [place] [facility] [address] [facility] [id number] [place] [address]- 5150 May, [facility] [place] [facility] [address] [facility] [id number] [place] [address]- 6458 May, [facility] [place] [facility] [address] [facility] [id number] [place] [address]- 1074 May, [facility] [place] [facility] [address] [facility] [id number] [place] [address]- 9359 May, [facility] [place] [facility] [address] [id number] [place] [address]- 5241 May, [facility] [place] [facility] [address] [facility] [id number] [place] [address]- 6077 18 May, 2013 [facility] [place] [facility] [address] [facility] [id number] [place] [address]- 5312 May, [facility] [place] [facility] [address] [id number] [place] [address]- 1167 17 May, 2013 [facility] [place] [facility] [address] [id number] [place] [address]- 8050 May, [facility] [place] [facility] [address] [id number] [place] [address]- 6476 May, [facility] [place] [facility] [address] [id number] [place] [address]- 9715 May, [facility] [place] [facility] [address] [id number] [place] [address]- 8840 May, [facility] [place] [facility] [address] [id number] [place] May, [facility] [place] [facility] [address] [id number] [place] [address]- 3396 Apr, [facility] [place] [facility] [address] [id number] [place] [address]- 5832 Apr, [facility] [place] [facility] [address] [id number] [place] [address]- 0842 Apr, [facility] [place] [facility] [address] [id number] [place] [address]- 5398 Apr, [facility] [place] [facility] [address] [facility] [id number] [place] [address]- 5936 Apr, [facility] [place] [facility] [address] [id number], [place] [address]- 2390 Apr, [facility] [place] [facility] [address] [id number] [place] [address]- 6908 Apr, [facility] [place] [facility] [address] [id number] [place] [address]- 9686 Mar, [facility] [place] [facility] [address] [id number] [place] [address]- 4586 Mar, [facility] [place] [facility] [address] [id number], [place] [address]- 6002 Mar, [facility] [address] [id number] [place] [address]- 6333 Mar, [facility] [place] [facility] [address] [id number] [place] [address]- 9783 Mar, [facility] [address] [id number] [place] [address]- 8307 Mar, [facility] [place] [facility] [address] [id number] [place] [address]- 3372 Mar, [facility] [address] [id number] [place] [address]- 1496 Mar, [facility] [address] [id number] [place] [address]- 4024 Mar, [facility] [address] [id number] [place] [address]- 5151 Mar, [facility] [place] [facility] [address] [id number] [place] [address]- 8350 Mar, [facility] [address] [id number] [place] [address]- 3200 Feb, [facility] [place] [facility] [address] [id number] [place] [address]- 0061 Feb, [facility] [address] [id number], [place] [address]- 8166 Feb, [facility] [place] [facility] [address] [id number], [place] [address]- 9303 Feb, [facility] [place] [facility] [address] [id number], [place] [address]- 9191 Feb, [facility] [place] [facility] [address] [id number], [place] [address]- 0238 Feb, [facility] [place] [facility] [address] [id number] [place] [address]- 6883 15 Feb, 2013 [facility] [place] [facility] [address] [id number] [place] [address]- 6859 14 Feb, 2013 [facility] [place] [facility] [address] [id number] [place] [address]- 2308 14 Feb, 2013 [facility] [place] [facility] [address] [id number] [place] [address]- 4445 13 Feb, 2013 [facility] [place] [facility] [address] [id number] [place] [address]- 1643 13 Feb, 2013 [facility] [place] [facility] [address] [id number] [place] [address]- 8490 12 Feb, 2013 [facility] [place] [facility] [address] [id number] [place] [address]- 7417 Feb, [facility] [place] [facility] [address] [id number] [place] [address]- 7944 Feb, [facility] [place] [facility] [address] [id number] [place] [address]- 8569 Feb, [facility] [place] [facility] [address] [id number] [place] [address]- 9695 Feb, [facility] [place] [facility] [address] [id number] [place] [address]- 4189 Jan, [facility] [place] [facility] [address] [id number] [place] [address]- 1585 Jan, [facility] [place] [facility] [address] [id number] [place] [address]- 6564 24 Jan, 2013 [facility] [place] [facility] [address] [id number] [place] [address]- 8692 Jan, [facility] [place] [facility] [address] [id number] [place] [address]- 7738 Jan, [facility] [place] [facility] [address] [id number] [place] [address]- 3836 Jan, [facility] [place] [facility] [address] [id number] [place] [address]- 6177 Jan, [facility] [place] [facility] [address] [id number] [place] [address]- 3054 Jan, [facility] [place] [facility] [address] [id number] [place] [address]- 9343 10 Jan, 2013 [facility] [place] [facility] [address] [id number] [place] [address]- 5478 27 Dec, 2012 [facility] [place] [facility] [address] [id number] [place] [address]- 2522 20 Dec, 2012 [facility] [place] [facility] [address] [id number] [place] [address]- 8720 Dec, [facility] [place] [facility] [address] [id number] [place] [address]- 4183 10 Dec, 2012 [facility] [place] [facility] [address] [id number] [place] [address] 04 Dec, 2012 [facility] [place] [facility] [address] [id number] [place] [address] Dec, [facility] [place] [facility] [address] [id number] [place] [address] Nov, [facility] [place] [facility] [address] [id number] [place] [address]68 Nov, [facility] [place] [facility] [address] [id number] [place] [address] Nov, [facility] [place] [facility] [address] [id number] [address] Nov, [facility] [place] [facility] [address] [id number] [place] [address] Nov, [facility] [place] [facility] [address] [id number] [place] [address] Nov, [facility] [place] [facility] [address] [id number] [place] [address] Nov, [facility] [place] [facility] [address] [id number] [place] [address] 15 Nov, 2012 [facility] [place] [facility] [address] [id number] [place] [address] 14 Nov, 2012 [facility] [place] [facility] [address] [id number] [place] [address] 133[address] Nov, [facility] [place] [facility] [address] [id number] [place] [address] Oct, [facility] [place] [facility] [address] [id number] [place] [address] Oct, [facility] [place] [facility] [address] [id number] [place] [address] 1401 Oct, [facility] [place] [facility] [address] [id number] [place] [address] Oct, [facility] [place] [facility] [address] [id number] [place] [address] 48[address] Oct, [facility] [place] [facility] [address] [id number] [place] [address]10 Oct, [facility] [place] [facility] [address] [id number] [place] [address]197 Oct, [facility] [place] [facility] [address] [id number] [place] [address] Oct, [facility] [place] [facility] [address] [id number] [place] [address] Sep, [facility] [place] [facility] [address] [id number] [place] [address] Sep, [facility] [place] [facility] [address] [id number] [place] [address] 3670 Sep, [facility] [place] [facility] [address] [id number] [place] [address] 45[address] Sep, [facility] [place] [facility] [address] [id number] [place] [address]108 Sep, [facility] [place] [facility] [address] [id number] [place] [address] Sep, [facility] [address] [id number] [place] [address] Sep, [facility] [address] [id number] [place] [address] Sep, [facility] [address] [id number] [place] [address]107 August, [facility] [address] [id number] [place] [address] August, [facility] [address] [id number] [place] [address]254 August, [facility] [address] [id number] [place] [address] 7[address] August, [facility] [address] [id number] [place] [address] August, [facility] [address] [id number] [place] [address] Jul, [facility] [address] [id number] [place] [address] Jul, [facility] [address] [id number] [place] [address] Jul, [facility] [address] [id number] [place] [address]004 Jul, [facility] [address] [id number] [place] [address] Jul, [facility] [place] [facility] [address] [id number] [place] [id number] Jun, [facility] [place] [facility] [address] [id number] [place] [address] Jun, [facility] [address] [id number] [place] [address]49 15 Jun, 2012 [facility] [address] [id number] [place] [address]77 14 Jun, 2012 [facility] [place] [facility] [address] [id number] [place] [address]165 Jun, [facility] [place] [facility] [address] [id number] [place] [address] 45[address] Jun, [facility] [place] [facility] [address] [id number] [place] [address]- [address]52 08 Jun, 2012 [facility] [place] [facility] [address] [id number] [place] [address] 1230 Jun, [facility] [place] [facility] [address] [id number] [place] [address] 5989 Jun, [facility] [place] [facility] [address] [id number] [place] [address] 9708 May, [facility] [place] [facility] [address] [id number] [place] [address] May, [facility] [place] [facility] [address] [id number] [place] [address] 5693 May, [facility] [place] [facility] [address] [id number] [place] [address]- 4[address] May, [facility] [place] [facility] [address] [id number], [place] [address] Apr, [facility] [place] [facility] [address] [id number] [place] [address] 6406 Apr, [facility] [place] [facility] [address] [id number] [place] [address] 4946 Apr, [facility] [place] [facility] [address] [id number] [place] [address]- 1021 Apr, [facility] [place] [facility] [address] [id number] [place] [address] 1325 Apr, [facility] [place] [facility] [address] [id number] [place] [address] 45[address] Apr, [facility] [address] [id number] [place] [address]49 Apr, [facility] [address] [id number] [place] [address] 84[address] Mar, [facility] [address] [place] [id number] Mar, [facility] [address] [id number] [place] [address] Mar, [facility] [address] [id number] [place] [address] 2602 Mar, [facility] [address] [id number] [place] [address]- [address]110 Mar, [facility] [address] [id number] [place] [address]- [address] Mar, [facility] [address] [id number] [place] [address]- [address] Mar, [facility] [place] [facility] [address] [id number] [place] [address] Mar, [facility] [address] [id number] [place] [address] Mar, [facility] [address] [id number] [place] [address] Mar, [facility] [address] [id number] [place] [address] Mar, [facility] [address] [id number] [place] [address] Mar, [facility] [address] [id number] [place] [address] Mar, [facility] [address] [id number] [place] [address] Mar, [facility] [place] [facility] [address] [id number] [place] [address]284 Mar, [facility] [place] [facility] [address] [id number] [place] [address] 0584 Mar, [facility] [place] [facility] [address] [id number] [place] [address] 4187 Mar, [facility] [place] [facility] [address] [id number] [place] [address] 1297 Feb, [facility] [place] [facility] [address] [id number] [place] [address]441 Feb, [facility] [place] [facility] [address] [id number] [place] [address] Feb, [facility] [place] [facility] [address] [id number] [place] [address]- 1626 Feb, [facility] [place] [facility] [address] [id number] [place] [address] 0[address] Feb, [facility] [place] [facility] [address] [id number] [place] [address]- 5788 Feb, [facility] [place] [facility] [address] [id number] [place] [address]- 0065 Feb, [facility] [place] [facility] [address] [id number] [place] [address]- 6616 Feb, [facility] [place] [facility] [address] [id number] [place] [address]- 3162 Feb, [facility] [place] [facility] [address] [id number] [place] [address]- 3656 Feb, [facility] [place] [facility] [address] [id number] [place] [address]- 3625 Feb, [facility] [place] [facility] [address] [id number] [place] [address]- 8736 Feb, [facility] [place] [facility] [address] [id number], [place] [address] Feb, [facility] [place] [facility] [address] [id number] [place] [address] Feb, [facility] [place] [facility] [address] [id number] [place] [address]- 3646 Feb, [facility] [place] [facility] [address] [facility] [id number] [place] [address]- 1212 Feb, [facility] [place] [facility] [address] [id number] [place] [address] Jan, [facility] [place] [facility] [address] [id number] [place] [address]- 8585 Jan, [facility] [place] [facility] [address] [id number] [place] [address]- 5797 Jan, [facility] [place] [facility] [address] [id number] [place] [address]- 8763 Jan, [facility] [place] [facility] [address] [id number], [place] [address] 6398 Jan, [facility] [place] [facility] [address] [id number], [place] [address]- 1152 Jan, [facility] [place] [facility] [address] [id number], [place] [address]- 466[address] Jan, [facility] [place] [facility] [address] [id number], [place] [address]- 4988 Jan, [facility] [place] [facility] [address] [id number], [place] [address]- 5924 Jan, [facility] [place] [facility] [address] [id number], [place] [address] 37[address] Jan, [facility] [place] [facility] [address] [facility] [id number], [place] [address]- 1233 Jan, [facility] [place] [facility] [address] [facility] [id number], [place] [address]- 3799 Jan, [facility] [place] [facility] [address] [id number] [place] [address]- 1835 11 Jan, 2012 [facility] [place] [facility] [address] [id number] [place] [address]- 0061 11 Jan, 2012 [facility] [place] [facility] [address] [id number] [place] [address]- 1906 08 Jan, 2012 [facility] [place] [facility] [address] [id number] [place] [address]- 9033 05 Jan, 2012 [facility] [place] [facility] [address] [id number] [place] [address]- 9287 04 Jan, 2012 [facility] [place] [facility] [address] [id number] [place] [address]- 3034 21 Dec, 2011 [facility] [place] [facility] [address] [id number] [place] [address]- 6417 20 Dec, 2011 [facility] [place] [facility] [address] [id number] [place] [address]- 3059 18 Dec, 2011 [facility] [place] [facility] [address] [id number] [place] [address]- 9973 18 Dec, 2011 [facility] [place] [facility] [address] [id number] [place] [address]- 5775 10 Dec, 2011 [facility] [place] [facility] [address] [facility] [id number] [place] [address]- 2544 10 Dec, 2011 [facility] [place] [facility] [address] [id number] [place] [address] 2546 10 Dec, 2011 [facility] [place] [facility] [address] [id number] [place] [address]- 2549 07 Dec, 2011 [facility] [place] [facility] [address] [id number] [place] [address]- 5930 30 Nov, 2011 [facility] [place] [facility] [address] [id number] [place] [address]- 254 Nov, [facility] [place] [facility] [address] [id number] [place] [address]- 8682 Nov, [facility] [place] [facility] [address] [id number] [place] [address]- 1871 Nov, [facility] [place] [facility] [address] [id number] [place] [address]- 9011 Nov, [facility] [place] [facility] [address] [id number] [place] [address] 1952 Nov, [facility] [place] [facility] [address] [id number] [place] [address]- 5166 Oct, [facility] [place] [facility] [address] [id number] [place] [address]- 4995 Oct, [facility] [place] [facility] [address] [id number] [place] [address]- 2537 Oct, [facility] [place] [facility] [address] [id number] [place] [address]- 6739 Oct, [facility] [place] [facility] [address] [id number] [place] [address]- 2116 Oct, [facility] [place] [facility] [address] [id number] [place] [address]- 9291 Oct, [facility] [place] [facility] [address] [id number] [place] [address]- 3950 Oct, [facility] [place] [facility] [address] [id number] [place] [address]- 5850 Sep, [facility] [place] [facility] [address] [id number] [place] [address]- 1664 Sep, [facility] [place] [facility] [address] [id number] [place] [address]- 6798 Sep, [facility] [place] [facility] [address] [id number] [place] [address]- 7193 Sep, [facility] [place] [facility] [address] [id number] [place] [address]- 3582 Sep, [facility] [place] [facility] [address] [id number] [place] [address]- 6078 15 Sep, 2011 [facility] [address] [id number] [place] [address]- 5176 14 Sep, 2011 [facility] [place] [facility] [address] [id number] [place] [address]- 1172 Sep, [facility] [place] [facility] [address] [id number] [place] [address]- 6816 05 Sep, 2011 [facility] [place] [facility] [address] [id number] [place] [address]- 7969 04 Sep, 2011 [facility] [place] [facility] [address] [id number] [place] [address]- 9557 August, [facility] [place] [facility] [address] [id number] [place] [address]- 7986 August, [facility] [address] [id number] [place] [address]- 3445 August, [facility] [place] [facility] [address] [id number] [place] [address]- 8353 August, [facility] [place] [facility] [address] [id number] [place] [address]- 6979 August, [facility] [place] [facility] [address] [id number] [place] [address]- 0359 Jul, [facility] [place] [facility] [address] [id number] [place] [address]- 1400 Jul, [facility] [place] [facility] [address] [id number] [place] [address]- 0873 25 Jul, 2011 [facility] [place] [facility] [address] [id number] [place] [address]- 2912 17 Jul, 2011 [facility] [place] [facility] [address] [id number] [place] [address]- 5170 11 Jul, 2011 [facility] [place] [facility] [address] [facility] [id number] [place] [address]- 0784 Jul, [facility] [place] [facility] [address] [id number] [place] [address]- 0711 Jul, [facility] [place] [facility] [address] [id number] [place] [address]- 7157 Jun, [facility] [place] [facility] [address] [id number] [place] [address]- 3766 Jun, [facility] [place] [facility] [address] [id number] [place] [address]- 1198 Jun, [facility] [place] [facility] [address] [id number] [place] [address]- 9026 Jun, [facility] [place] [facility] [address] [id number] [place] [address]- 4205 Jun, [facility] [place] [facility] [address] [id number] [place] [address]- 7382 May, [facility] [place] [facility] [address] [id number] [place] [address]- 9463 May, [facility] [place] [facility] [address] [id number] [place] [address]- 2715 May, [facility] [place] [facility] [address] [id number] [place] [address]- 1921 May, [facility] [place] [facility] [address] [id number] [place] [address]- 7324 May, [facility] [place] [facility] [address] [id number] [place] [address]- 8653 May, [facility] [place] [facility] [address] [id number] [place] [address]- 6183 Apr, [facility] [place] [facility] [address] [id number] [place] [address]- 6366 Mar, [facility] [place] [facility] [address] [id number] [place] [address]- 6185 Feb, [facility] [place] [facility] [address] [id number], [place] [address]- 7512 07 Feb, 2011 [facility] [place] [facility] [address] [id number] [place] [address]- 1125 Feb, [facility] [place] [facility] [address] [id number] [place] 3629 Feb, [facility] [place] [facility] [address] [id number] [place] [address]- 0530 31 Jan, 2011 [facility] [place] [facility] [address] [id number] [place] [address]- 5282 27 Jan, 2011 [facility] [place] [facility] [address] [id number] [place] [address]- 4122 Jan, [facility] [place] [facility] [address] [id number] [place] [address]- 9140 24 Jan, 2011 [facility] [place] [facility] [address] [id number] [place] [address]- 1246 14 Jan, 2011 [facility] [place] [facility] [address] [id number] [place] [address]- 4871 Dec, [facility] [place] [facility] [address] [id number] [place] [address]- 5760 Oct, [facility] [place] [facility] [address] [id number] [place] [address]- 2773 August, [facility] [place] [facility] [address] [id number], [place] [address]- 8673 29 Mar, 2010 [facility] [place] [facility] [address] [id number] [place] [address]- 4791 27 Mar, 2010 [facility] [place] [facility] [address] [id number] [place] [address]- 0907 16 Mar, 2010 [facility] [place] [facility] [address] [id number] [place] [address]151 15 Mar, 2010 [facility] [place] [facility] [address] [id number] [place] [address]- 1541 15 Mar, 2010 [facility] [place] [facility] [address] [id number] [place] [address]- 6830 08 Mar, 2010 [facility] [address] [id number] [place] [address]- 2144 Mar, [facility] [place] [facility] [address] [id number] [place] [address]- 1713 Feb, [facility] [address] [id number] [place] [address]- 2111 24 Feb, 2010 [facility] [place] [facility] [address] [id number] [place] [address]- 3369 15 Feb, 2010 [facility] [address] [id number] [place] [address]- 8344 Jan, [facility] [place] [facility] [address] [id number] [place] [address]- 1779 Jan, [facility] [address] [id number] [place] [address]- 0730 Jan, [facility] [address] [id number] [place] [address]- 5621 Nov, [facility] [place] [facility] [address] [id number] [place] [address]- 0784 Sep, [facility] [address] [facility] [id number] [place] [address]- 0799 August, [facility] [place] [facility] [address] [id number] [place] [address]- 0206 30 Mar, 2009 [facility] [place] [facility] [address] [id number] [place] [address]- 3302 07 Mar, 2009 [facility] [place] [facility] [address] [id number] [place] [address]- 1271 17 Feb, 2009 [facility] [place] [facility] [address] [id number] [place] [address]- 0328 10 Feb, 2009 [facility] [place] [facility] [address] [id number] [place] [address]- 8909 Feb, [facility] [place] [id number] [address]- 0792 Feb, [facility] [place] [id number], [place] [address]- 5074 Feb, [facility] [place] [id number], [place] [address]- 5277 Jan, [facility] [place] [id number], [place] [address]- 1389 Jan, [facility] [place] [id number], [place] [address]- 2294 Jan, [facility] [place] [id number] [place] [address]- 5738 Jan, [facility] [place] [id number], [place] [address]- 7004 Nov, [facility] [place] [id number], [place] [address]- 9506 Sep, [facility] [place] [id number], [place] [address]- 8020 August, [facility] [place] [id number], [place] [address]- 9543 Jul, [facility] [place] [address] [id number] [address]- 9233 May, IMMUNIZATIONS No Known Immunizations SOCIAL HISTORY [...] Knee Surgery 07/16/17 Hospitalization History [facility] [place]- left hand/wrist swelling 10/09/2017
--- OUTSIDE RECORDS SUMMARY | 2018-02-10 11:13 | XMS REPORT ---
Author Author MARCO A GALEAS Organization [facility] Address [address] [place] [address] Care Team Providers Care Anode Worker Name Role Phone MARCO A GALEAS Unavailable PROBLEMS Type Condition ICD9-CM Code FQX12-OU Code Onset Dates Condition Status SNOMED Code Problem 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 Active 87659687 Problem Colon polyp K63.5 Active 31382602 Problem Screening breast examination Z12.39 Active 265555841 Problem Bilateral low back pain without sciatica M54.5 Active 019006767 Problem Postmenopausal Z78.0 Active 28006870 Problem Essential tremor G25.0 Active 73079356 Problem Osteopenia M85.80 Active 874751127 Problem Hyperlipidemia E78.5 Active 01825751 Problem Cigarette nicotine dependence without complication F17.210 Active 58681458 Problem Vascular dementia without behavioral disturbance F01.50 Active 08036807824495670 Problem Arthritis M19.90 Active 7936550 Problem Chronic atrial fibrillation I48.2 Active 564085044 Problem Dementia without behavioral disturbance, unspecified dementia type F03.90 Active 70714135 Problem Other chronic pancreatitis K86.1 Active 081132789 Problem Xeroderma Q80.9 Active 28500134 Problem Chronic obstructive pulmonary disease with acute lower respiratory infection J44.0 Active 634621816 Problem Type 2 diabetes mellitus with diabetic neuropathy, without long-term current use of insulin E11.40 Active 23576133 Problem Atherosclerosis of teller artery of both lower extremities with intermittent claudication I70.213 Active 346788495539528 Problem Hammertoe of right foot M20.41 Active 685345952 Problem Hammertoe of left foot M20.42 Active 990937410 Problem Migraine without aura and with status migrainosus, not intractable G43.001 Active 329844093 Problem Migraine without aura and without status migrainosus, not intractable G43.009 Active 789663460 Problem Major depressive disorder, recurrent episode, moderate F33.1 Active 758940836 Problem Unspecified psychosis F29 Active 48149064 Problem Cervicalgia M54.2 Active 4454330207396 Problem Diabetic polyneuropathy associated with type 2 diabetes mellitus E11.42 Active 24636998 Problem COPD (chronic obstructive pulmonary disease) J44.9 Active 67372700 Problem 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 Active 7808777627870 Problem Gastroparesis K31.84 Active 011122610 Problem Stress incontinence of urine N39.3 Active 26461039 Problem Osteoporosis M81.0 Active 62628310 Problem Controlled type 2 diabetes mellitus without complication, without long -term current use of insulin E11.9 Active 301262171 Problem Barretts esophagus K22.70 Active 527670202 Problem Chronic fatigue R53.82 Active 34139108 Problem History of common bile duct surgery Z98.89 Active 978726649 Problem Bipolar affective disorder, currently depressed, moderate F31.32 Active 321183836 Problem Generalized anxiety disorder F41.1 Active 294723608 Problem Gastroesophageal reflux disease, esophagitis presence not specified K21.9 Active 726647401 Problem Coronary artery disease involving teller coronary artery of teller heart with other form of angina pectoris I25.118 Active 2668942065593 Problem Postconcussion syndrome F07.81 Active 21873446 Problem Chronic pain syndrome G89.4 Active 498503799 Problem Type 2 diabetes mellitus with diabetic peripheral angiopathy without gangrene E11.51 Active 842771828 Problem Paroxysmal atrial fibrillation I48.0 Active 344170180 Problem Unspecified atherosclerosis of teller arteries of extremities, unspecified extremity I70.209 Active 847351272202852 Problem Acute exacerbation of chronic obstructive pulmonary disease (COPD) J44.1 Active 861858081 Problem Crohn''s disease without complication, unspecified gastrointestinal tract location K50.90 Active 60171715 ALLERGIES No Information ENCOUNTERS Encounter Location Date Diagnosis [facility] [address] [facility] [id number] [address] Feb, [facility] [id number] [address] 9074 Dec, [facility] [address] [facility] [id number] [place] [address] Dec, High risk medication use Z79.899 [facility] [address] [address] 79[address] 25 Dec, 2017 [facility] [address] [address] 7662 24 Dec, 2017 [facility] [address] [address] 7117 19 Dec, 2017 [facility] [address] [place] [address] 08414- 9205 19 Dec, 2017 [facility] [address] [address] 0578 18 Dec, 2017 [facility] [address] [place] [address] 28948- 1368 14 Dec, 2017 [facility] [address] [place] [address] 19011- 0786 14 Dec, 2017 [facility] [address] [place] [address] 24871- 0594 13 Dec, 2017 [facility] [address] [address] 9211 Dec, Type 2 diabetes mellitus with diabetic peripheral angiopathy without gangrene E11.51 ; Contusion of face, initial encounter S00.83XA and Bronchitis J40 [facility] [address] [address] Dec, [facility] [address] [address] 5958 06 Dec, 2017 [facility] [address] [address] 4765 Nov, [facility] [address] [address] 3091 Nov, Onychomycosis B35.1 ; Hammertoe of left foot M20.42 ; Hammertoe of right foot M20.41 and Type 2 diabetes mellitus with diabetic neuropathy, without long-term current use of insulin E11.40 [place] [facility] [id number] [place] [address] 08169- 6397 Nov, [place] [address] 05377- 3583 Nov, Bronchitis J40 [facility] [id number] [place] [address] 02209- 3336 Oct, [place] [address] 68278- 2605 Oct, Bipolar affective disorder, currently depressed, moderate F31.32 ; Vascular dementia without behavioral disturbance F01.50 and Generalized anxiety disorder F41.1 [place] [address] 25631- 5171 Oct, [place] [address] 18547- 7785 Oct, [place] [address] 56184- 3395 Oct, Edema of both legs R60.0 [place] [address] 40912- 4712 Oct, [facility] [id number] [place] [address] 35858- 7249 Sep, [place] [id number] [place] [address] 96961- 2786 Sep, [place] [id number] [place] [address] 43249- 9964 Sep, [place] [facility] [id number] [place] [address] 43741- 6827 18 Sep, 2017 Encounter for well woman exam with routine gynecological exam Z01.419 ; Screening for STDs (sexually transmitted diseases) Z11.3 ; Screening breast examination Z12.31 and Overweight (BMI 25.0-29.9) E66.3 [place] [address] 82497- 1654 Sep, [facility] [address] [address]- 7781 Sep, [facility] [address] [address]85 Sep, [facility] [address] [address] [address] August, [facility] [address] [place] [address] 01903- 4030 August, [facility] [address] [place] [address] 57169- 9391 August, Type 2 diabetes mellitus with diabetic neuropathy, without long-term current use of insulin E11.40 and Sprain of right ankle, unspecified ligament, initial encounter S93.401A [facility] [id number] [place] [address] 43519- 5566 August, [facility] [address] [address]- 0276 August, [facility] [address] [place] [address] 37780- 8515 August, [facility] [address] [address] 6713 August, Gastroesophageal reflux disease, esophagitis presence not specified K21.9 [facility] [address] [address]- 8022 August, [facility] [id number] [address]- 1407 August, [facility] [address] [address] 8769 August, [facility] [id number] [address] August, Type 2 diabetes mellitus with diabetic neuropathy, without long-term current use of insulin E11.40 and Elevated liver enzymes R74.8 [facility] [id number] [place] [address] 56073- 7698 Jul, [facility] [address] 22292- 2438 Jul, Cough R05 [facility] [address] 82099- 7458 Jul, [facility] [address] 43452- 7706 Jul, [facility] [address] 09171- 3788 Jul, Bipolar affective disorder, currently depressed, moderate F31.32 ; Vascular dementia without behavioral disturbance F01.50 and Generalized anxiety disorder F41.1 [facility] [address] 11050- 4085 Jul, [facility] [address] 12527- 3170 Jul, Type 2 diabetes mellitus with diabetic neuropathy, without long-term current use of insulin E11.40 and Elevated liver enzymes R74.8 [facility] [address] 69914- 9116 Jul, [facility] [address] 69777- 5268 Jul, [facility] [address] 28055- 6199 Jul, [facility] [address] 47999- 5008 Jul, Post-menopausal Z78.0 [facility] [address] 89775- 3477 Jul, Stress incontinence of urine N39.3 [facility] [id number] [place] [address] 19894- 6246 Jul, [facility] [id number] [place] [address] 03136- 5042 Jul, [facility] [id number] [place] [address] 13513- 8373 Jul, Stress incontinence of urine N39.3 and Cough R05 [facility] [id number] [place] [address] 09018- 7546 Jul, [facility] [address] 28857- 4799 Jul, [facility] [id number] [place] [address] 65317- 2835 Jul, [facility] [id number] [place] [address] 57007- 8548 Jul, Gastroesophageal reflux disease, esophagitis presence not specified K21.9 [facility] [id number] [place] [address] 40691- 7722 Jun, Diabetic polyneuropathy associated with type 2 diabetes mellitus E11.42 [facility] [id number] [place] [address] 30755- 6804 Jun, Diabetic polyneuropathy associated with type 2 diabetes mellitus E11.42 ; Coronary artery disease involving teller coronary artery of teller heart with other form of angina pectoris I25.118 and Paroxysmal atrial fibrillation I48.0 [facility] [id number] [place] [address] 92216- 0929 Jun, [facility] [id number] [place] [address] 04414- 7291 Jun, [facility] [id number] [place] [address] 67717- 4874 Jun, Gastroenteritis K52.9 [facility] [id number] [place] [address] 41787- 3958 Jun, Gastroenteritis K52.9 [facility] [id number] [place] [address] 36581- 6035 Jun, [facility] [address] [address]- 5082 Jun, [facility] [id number] [place] [address] 72445- 7702 Jun, Sprain of right ankle, unspecified ligament, initial encounter S93.401A ; Type 2 diabetes mellitus with diabetic neuropathy, without long-term current use of insulin E11.40 ; Atherosclerosis of teller artery of both lower extremities with intermittent claudication I70.213 ; 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 ; Chronic atrial fibrillation I48.2 and Crohn''s disease without complication, unspecified gastrointestinal tract location K50.90 [facility] [id number] [place] [address] 43082 -9955 17 Jun, 2017 Cough R05 and Chronic obstructive pulmonary disease with acute lower respiratory infection J44.0 [place] [facility] [id number] [place] [address] 77434- 7493 16 Jun, 2017 [place] [facility] [id number] [place] [address] 09036- 2291 15 Jun, 2017 Coughing R05 ; Unspecified atherosclerosis of teller arteries of extremities, unspecified extremity I70.209 ; Type 2 diabetes mellitus with diabetic peripheral angiopathy without gangrene E11.51 ; Crohn''s disease without complication, unspecified gastrointestinal tract location K50.90 ; Other chronic pancreatitis K86.1 and Chronic atrial fibrillation I48.2 [facility] [address] [place] [address] 75508 -1784 Jun, [place] [address] [place] [address] 96385- 4790 Jun, Bipolar affective disorder, currently depressed, moderate F31.32 ; Vascular dementia without behavioral disturbance F01.50 and Generalized anxiety disorder F41.1 [place] [address] [place] [address] 13020- 0417 May, Generalized anxiety disorder F41.1 [facility] [id number] [address]- 0163 May, [facility] [id number] [place] [address] 57349- 7655 May, [facility] [id number] [place] [address] 54001- 9117 May, Coughing R05 [facility] [id number] [place] [address] 45694- 9634 May, [facility] [id number] [place] [address] 73248- 6318 May, Bipolar affective disorder, currently depressed, moderate F31.32 ; Vascular dementia without behavioral disturbance F01.50 and Generalized anxiety disorder F41.1 [place] [facility] [id number] [place] [address] 63874- 4514 Apr, Generalized anxiety disorder F41.1 [place] [facility] [id number] [place] [address] 05091- 5272 Apr, [facility] [id number] [place] [address] 03099- 0159 Apr, Vascular dementia without behavioral disturbance F01.50 ; Generalized anxiety disorder F41.1 and Bipolar affective disorder, currently depressed, moderate F31.32 [facility] [id number] [place] [address] 61303- 9207 Apr, Generalized anxiety disorder F41.1 [facility] [address] [place] [address] 87106 -2595 Apr, Cough R05 and Acute exacerbation of chronic obstructive pulmonary disease (COPD) J44.1 [facility] [facility] [id number] [place] [address] 27859- 9494 Apr, [facility] [address] [place] [address] 48591 -6566 Mar, Cough R05 and Cigarette nicotine dependence without complication F17.210 [place] [facility] [address] [place] [address]- 7976 Mar, [facility] [id number] [place] [address] 35103- 4539 Feb, Generalized anxiety disorder F41.1 ; Major depressive disorder, recurrent episode, moderate F33.1 ; Vascular dementia without behavioral disturbance F01.50 and Unspecified psychosis F29 [facility] [id number] [place] [address] 18714- 8492 Feb, [facility] [address] 24323- 8439 Feb, [place] [address] 76466- 1779 Feb, Generalized anxiety disorder F41.1 [place] [id number] [place] [address] 22322- 5393 Feb, Generalized anxiety disorder F41.1 [place] [address] 82794- 8780 Feb, Dizziness R42 ; Chronic fatigue R53.82 ; Postconcussion syndrome F07.81 ; Fall, initial encounter W19.XXXA and Disorientation R41.0 [facility] [id number] [place] [address] 55099- 9944 Feb, Postconcussion syndrome F07.81 ; Injury of head, initial encounter S09.90XA ; Fall, initial encounter W19.XXXA ; Disorientation R41.0 and Acute cystitis with hematuria N30.01 [facility] [id number] [place] [address] 83282- 2629 Jan, Gastroesophageal reflux disease, esophagitis presence not specified K21.9 ; Post-menopausal Z78.0 and Migraine without aura and without status migrainosus, not intractable G43.009 [facility] [id number] [place] [address] 88584- 2324 Jan, [facility] [id number] [place] [address] 21048- 6964 Jan, Generalized anxiety disorder F41.1 ; Major depressive disorder, recurrent episode, moderate F33.1 ; Vascular dementia without behavioral disturbance F01.50 and Unspecified psychosis F29 [facility] [id number] [place] [address] 14660- 7971 Jan, Pneumonia of left lower lobe due to infectious organism J18.1 [facility] [id number] [place] [address] 36927- 0151 Jan, Migraine without aura and with status migrainosus, not intractable G43.001 [facility] [id number] [place] [address] 28785 -8567 Jan, Migraine without aura and without status migrainosus, not intractable G43.009 [facility] [id number] [place] [address] 50576- 6767 Dec, Hematoma T14.8 [place] [facility] [id number] [place] [address] 81330- 9261 Dec, [facility] [id number] [place] [address] 44390 -7792 Nov, Fatigue, unspecified type R53.83 [place] [facility] [id number] [place] [address] 64590- 3981 Nov, Scabies B86 and Coronary artery disease involving teller coronary artery of teller heart with other form of angina pectoris I25.118 [facility] [id number] [place] [address] 28682- 9445 Nov, [facility] [id number] [place] [address] 73988- 8043 Nov, [facility] [id number] [place] [address] 41799- 5863 Oct, [facility] [id number] [place] [address] 00093- 7860 Oct, Generalized anxiety disorder F41.1 and Major depressive disorder, recurrent episode, moderate F33.1 [facility] [address] [place] [address] 73040- 9980 19 Oct, 2016 Cramp of both lower extremities R25.2 [facility] [id number] [place] [address] 16986- 7673 18 Oct, 2016 Leg cramps R25.2 [facility] [id number] [place] [address] 76660- 7165 Oct, Chronic pain syndrome G89.4 [facility] [id number] [place] [address] 97690- 8359 Oct, [facility] [id number] [place] [address] 69716- 5683 Oct, [facility] [id number] [place] [address] 66977- 7236 Oct, Routine gynecological examination Z01.419 and Screening for breast cancer Z12.31 [facility] [id number] [place] [address] 21742- 5591 Sep, Diarrhea R19.7 [facility] [id number] [place] [address] 04481- 8689 Sep, Back pain M54.9 [facility] [id number] [place] [address] 39327- 3615 Sep, [facility] [id number] [place] [address] 61839- 6100 Sep, [facility] [address] [place] [address] 30051 -2322 August, Xeroderma Q80.9 [facility] [id number] [place] [address] 52863- 7995 August, Dementia without behavioral disturbance, unspecified dementia type F03.90 [facility] [id number] [place] [address] 94631- 6940 August, Chronic pain syndrome G89.4 [facility] [id number] [place] [address] 58025- 8710 August, [facility] [id number] [place] [address] 63644- 6838 August, Hyperlipidemia E78.5 ; Other fatigue R53.83 and Other specified hypotension I95.89 [facility] [address] 68368 -2929 August, Dysuria R30.0 ; Other fatigue R53.83 and Other specified hypotension I95.89 [facility] [address] 06157- 0014 August, [facility] [id number] [place] [address] 95328- 5534 Jul, Pain in left knee M25.562 and Gastroenteritis K52.9 [facility] [address] 53082- 6241 Jul, [facility] [id number] [place] [address] 24775- 2460 Jul, Diarrhea R19.7 [facility] [place] [id number] [place] [address] 33457 -0243 Jul, Spider bite, accidental or unintentional, initial encounter T63.301A [facility] [facility] [id number] [place] [address] 84771- 2185 Jul, Primary osteoarthritis of right knee M17.11 and Arthritis M19.90 [facility] [id number] [place] [address] 93240- 3590 Jul, Generalized anxiety disorder F41.1 and Major depressive disorder, recurrent episode, moderate F33.1 [facility] [id number] [place] [address] 91794- 8771 07 Jul, 2016 Type 2 diabetes mellitus with diabetic polyneuropathy E11.42 and Temporal headache R51 [facility] [id number] [place] [address] 61795- 0586 06 Jul, 2016 Back pain M54.9 [facility] [id number] [place] [address] 52121- 8704 05 Jul, 2016 [facility] [id number] [place] [address] [phone] Jul, [facility] [address] [phone]- [phone] 30 Jun, 2016 Nausea R11.0 [facility] [id number] [place] [address] [phone] Jun, Acute suppurative otitis media of both ears without spontaneous rupture of tympanic membranes, recurrence not specified H66.003 and COPD exacerbation J44.1 [facility] [id number] [place] [address] [phone] Jun, Generalized anxiety disorder F41.1 [facility] [id number] [place] [address] [id number]- [phone] 16 Jun, 2016 [facility] [id number] [place] [address] [phone] Jun, [facility] [facility] [id number] [place] [address] 85043 -0382 Jun, Shortness of breath R06.02 and COPD exacerbation J44.1 [facility] [id number] [place] [address] 90080- 3436 10 Jun, 2016 Eczema, unspecified type L30.9 [facility] [id number] [place] [address] 85492- 9693 09 Jun, 2016 [facility] [id number] [place] [address] 30789- 7472 24 May, 2016 [facility] [id number] [place] [address] 76695- 8941 May, Muscle cramping R25.2 [facility] [id number] [place] [address] 85530- 8208 13 May, 2016 [facility] [address] 92453- 1416 Apr, Diarrhea R19.7 [facility] [id number] [place] [address] 23708- 6707 Apr, [facility] [address] 77614- 9364 Apr, Chronic pain syndrome G89.4 [facility] [address] 15800- 6917 Apr, Cramp of both lower extremities R25.2 and Vascular dementia without behavioral disturbance F01.50 [facility] [id number] [place] [address] 09259- 3737 Apr, Type 2 diabetes mellitus with diabetic polyneuropathy E11.42 and Cigarette nicotine dependence without complication F17.210 [facility] [id number] [place] [address] 88962- 6743 Mar, Generalized anxiety disorder F41.1 [facility] [address] 40513- 9862 Feb, Generalized anxiety disorder F41.1 and Major depressive disorder, recurrent episode, moderate F33.1 [facility] [id number] [place] [address] 36410- 6644 Feb, [facility] [id number] [place] [address] 99272 -3245 Feb, Dysuria R30.0 and Acute cystitis with hematuria N30.01 [facility] [id number] [place] [address] 43759- 4050 Jan, [facility] [id number] [place] [address] 49234- 6547 Jan, [facility] [address] 14351- 1157 Jan, [facility] [id number] [place] [address] 67462- 5056 Jan, [facility] [id number] [place] [address] 76765 -4406 10 Jan, 2016 Wasp sting, accidental or unintentional, initial encounter T63.461A [facility] [address] 11739- 7104 06 Jan, 2016 Encounter for immunization Z23 [facility] [id number] [place] [address] 19418- 8376 Jan, [facility] [address] 85133- 0082 Jan, [facility] [id number] [place] [address] 22845- 7334 28 Dec, 2015 Generalized anxiety disorder F41.1 and Major depressive disorder, recurrent episode, moderate F33.1 [facility] [id number] [place] [address] 88236- 7790 21 Dec, 2015 Routine gynecological examination Z01.419 ; Postmenopausal Z78.0 ; Screening breast examination Z12.39 ; Osteopenia M85.80 and Breast cancer screening Z12.39 [facility] [id number] [place] [address] 47469- 0811 20 Dec, 2015 [facility] [id number] [place] [address] 24280- 5107 19 Dec, 2015 [facility] [id number] [place] [address] 07612- 8050 16 Dec, 2015 [facility] [id number] [place] [address] 52396- 3604 16 Dec, 2015 [facility] [id number] [place] [address] 99250- 1439 14 Dec, 2015 [facility] [id number] [place] [address] 10994- 6144 Dec, [facility] [address] [place] [address]- 5304 Nov, [facility] [address] [place] [address] -2402 Nov, Cough R05 ; Other viral agents as the cause of diseases classified elsewhere B97.89 and Acute upper respiratory infection, unspecified J06.9 [facility] [id number] [place] [address]- 1125 Nov, [facility] [address] [place] [address]- 9403 Nov, [facility] [id number] [place] [address]- 9792 Nov, [facility] [address] [place] [address]- 6526 Nov, [facility] [address] [place] [address]- 2551 Nov, [facility] [address] [place] [address]- 7710 Oct, [facility] [address] [address]- 1739 Oct, [facility] [address] [place] [address]- 8877 Oct, [facility] [address] [address]- 0876 Oct, Chronic pain syndrome G89.4 [facility] [address] [address]- 5118 Sep, Generalized anxiety disorder F41.1 and Major depressive disorder, recurrent episode, moderate F33.1 [facility] [address] [address]- 9871 Sep, [facility] [address] [address]- 8206 20 Sep, 2015 [facility] [id number] [place] [address] 56834- 5319 14 Sep, 2015 Generalized anxiety disorder F41.1 [facility] [id number] [place] [address] 72361- 7552 13 Sep, 2015 Cramp of both lower extremities R25.2 and Cervicalgia M54.2 [facility] [id number] [place] [address] 84073- 6464 06 Sep, 2015 Generalized anxiety disorder F41.1 [facility] [id number] [place] [address] 28662- 7535 Sep, [facility] [id number] [place] [address] 54270 -6841 August, Rash R21 ; Itching L29.9 and Allergic response, subsequent encounter T78.40XD [facility] [id number] [place] [address] 51901- 0645 August, Primary insomnia F51.01 [facility] [id number] [place] [address] 62698 -9611 August, Rash R21 ; Itching L29.9 and Allergic response, initial encounter T78.40XA [facility] [id number] [place] [address] 72845- 7494 August, [facility] [id number] [place] [address] 24783- 1662 August, Cramp of both lower extremities R25.2 [facility] [id number] [place] [address] 91532- 2446 August, Back pain M54.9 [facility] [id number] [place] [address] 71590- 2239 August, [facility] [id number] [place] [address] 87474- 0055 August, [facility] [address] [address] -4546 August, Cramp of both lower extremities R25.2 [facility] [id number] [place] [address] 69502- 6950 August, [facility] [id number] [place] [address] 66644- 0376 August, Syncope R55 ; Paroxysmal atrial fibrillation I48.0 ; Dementia without behavioral disturbance, unspecified dementia type F03.90 and Chronic pain syndrome G89.4 [facility] [id number] [place] [address] 11428- 1226 August, Type 2 diabetes mellitus with diabetic polyneuropathy E11.42 and Syncope R55 [facility] [id number] [place] [address] 74547- 8782 Jul, [facility] [id number] [place] [address] 55385- 6492 Jul, [facility] [id number] [place] [address] 25820- 0732 Jul, [facility] [id number] [place] [address] 91562- 2990 Jul, [facility] [id number] [place] [address] 66828- 6045 Jul, [facility] [id number] [place] [address] 52495- 2059 Jul, UTI (urinary tract infection) N39.0 [facility] [id number] [place] [address] 77440- 9149 Jul, [facility] [id number] [place] [address] 00115- 9348 Jul, Major depressive disorder, recurrent episode, moderate F33.1 and Generalized anxiety disorder F41.1 [facility] [address] [address]- 4077 Jul, Generalized anxiety disorder F41.1 [facility] [address] [address]- 8054 14 Jul, 2015 Diarrhea R19.7 [facility] [address] [address]- 4406 14 Jul, 2015 [facility] [address] [address]- 1010 Jun, [facility] [id number] [place] [address] 74296- 4940 Jun, Eczema L30.9 [facility] [id number] [place] [address] 31368- 0330 Jun, [facility] [id number] [place] [address] 87526- 8338 Jun, COPD (chronic obstructive pulmonary disease) J44.9 [facility] [id number] [place] [address] 67279- 2034 Jun, [facility] [address] [address]- 3815 Jun, Major depressive disorder, recurrent episode, moderate F33.1 and Generalized anxiety disorder F41.1 [facility] [address] [address]- 9414 May, [facility] [address] [address]- 6942 May, UTI (urinary tract infection) N39.0 [facility] [address] [address]- 1469 17 May, 2015 [facility] [address] [address]- 0366 May, [facility] [address] [address]- 7786 May, [facility] [address] [address]- 4907 May, [facility] [address] [address]- 8237 Apr, Major depressive disorder, recurrent episode, moderate F33.1 and Generalized anxiety disorder F41.1 [facility] [address] [address]- 5390 Apr, COPD (chronic obstructive pulmonary disease) J44.9 [facility] [id number] [place] [address] 04232- 3089 Apr, [facility] [id number] [place] [address] 67075- 5142 Apr, Atrial flutter I48.92 [facility] [id number] [place] [address] 13736- 1821 Apr, [facility] [id number] [place] [address] 11247- 4758 Apr, [facility] [id number] [place] [address] 62881- 2473 Mar, [facility] [id number] [place] [address] 41582- 3681 Mar, [facility] [id number] [place] [address] 38585- 3475 Mar, [facility] [id number] [place] [address] 85776- 7486 Mar, Hyperlipidemia E78.5 ; Type 2 diabetes mellitus with diabetic polyneuropathy E11.42 ; Major depressive disorder, recurrent episode, moderate F33.1 and Chronic pain syndrome G89.4 [facility] [id number] [place] [address] 15000- 9221 Mar, [facility] [address] [address]- 3116 Mar, [facility] [id number] [place] [address] 07294- 1599 Mar, [facility] [address] [address]- 9152 Mar, [facility] [id number] [place] [address] 03437- 9820 Feb, COPD (chronic obstructive pulmonary disease) J44.9 and Back pain M54.9 [facility] [id number] [place] [address] 57582- 0402 Feb, [facility] [id number] [place] [address] 97199- 1436 Feb, [facility] [id number] [place] [address] 04183- 2817 Feb, [facility] [id number] [place] [address] 53782- 3008 Feb, [facility] [id number] [place] [address] 84558- 6562 Feb, [facility] [id number] [place] [address] 11350- 8407 Feb, [facility] [id number] [place] [address] 29047- 6102 Feb, [facility] [id number] [place] [address] 09043- 8750 Feb, [facility] [id number] [place] [address] 63042- 6890 Feb, Diabetes E11.9 ; Back pain M54.9 and COPD (chronic obstructive pulmonary disease) J44.9 [facility] [address] [address]- 1035 Jan, [facility] [id number] [place] [address] 41067- 5209 Jan, Major depression, recurrent F33.9 and Generalized anxiety disorder F41.1 [facility] [address] [address]- 8124 Jan, Chronic pain G89.29 [facility] [address] [address]- 9492 Jan, [facility] [id number] [place] [address] 85352- 0376 Jan, [facility] [id number] [place] [address] 51355- 7541 Jan, [facility] [id number] [place] [address] 01788- 4112 Jan, [facility] [id number] [place] [address] 62927- 9783 Jan, Nicotine dependence F17.200 [facility] [id number] [place] [address] 90509- 6852 Jan, Nicotine dependence F17.200 and Back pain M54.9 [facility] [id number] [place] [address] 89194- 3488 Jan, [facility] [address] [address]- 5363 28 Dec, 2014 [facility] [id number] [place] [address] 64156- 5691 25 Dec, 2014 Anxiety, generalized 300.02 and Major depression, recurrent 296.30 [facility] [address] [address]- 2743 24 Dec, 2014 [facility] [address] [address]- 4083 21 Sep, 2014 [facility] [id number] [place] [address] 04083- 8555 17 Dec, 2014 [facility] [id number] [place] [address] 39081- 9258 15 Dec, 2014 [facility] [address] [address]- 9206 14 Sep, 2014 [facility] [id number] [place] [address] 46837- 5893 11 Dec, 2014 [facility] [id number] [place] [address] 28611- 1079 Dec, [facility] [id number] [place] [address] 27635- 0562 08 Dec, 2014 Skin tear 879.8 [facility] [address] 34428- 8692 08 Dec, 2014 Routine gynecological examination V72.31 ; Breast cancer screening V76.10 and Family history of breast cancer in first degree relative V16.3 [facility] [id number] [place] [address] 86357- 9151 Dec, [facility] [id number] [place] [address] 69578- 1825 Dec, [facility] [id number] [place] [address] 37538- 2550 Nov, [facility] [id number] [place] [address] 25215- 7035 Nov, [facility] [id number] [place] [address] 18521- 9761 Nov, Poor balance 781.99 and Vascular dementia, uncomplicated 290.40 [facility] [id number] [place] [address] 88208- 0407 Nov, [facility] [id number] [place] [address] 73264- 8251 Nov, Major depression, recurrent 296.30 and Anxiety, generalized 300.02 [facility] [id number] [place] [address] 26962- 9770 Nov, [facility] [id number] [place] [address] 08516- 0942 Nov, [facility] [id number] [place] [address] 33164- 9824 Nov, [facility] [address] [address]- 2413 Nov, [facility] [address] [address]- 9330 Nov, Vascular dementia, uncomplicated 290.40 and Lumbago 724.2 [facility] [address] [address]- 4241 Nov, [facility] [address] [address]- 1431 Nov, [facility] [id number] [place] [address] 82782- 8164 Nov, [facility] [id number] [address]- 5151 Oct, [facility] [id number] [place] [address] 91536- 5752 Oct, [facility] [address] [address]- 3575 Oct, [facility] [address] [address]- 0116 Oct, COPD (chronic obstructive pulmonary disease) 496 and Hyperlipidemia 272.4 [facility] [address] [address]- 7049 Oct, Major depression, recurrent 296.30 and Anxiety, generalized 300.02 [facility] [address] [address]- 5821 Oct, [facility] [address] [address]- 7552 Oct, [facility] [address] [address]- 2361 Oct, [facility] [address] [address]- 5899 Sep, Lumbago 724.2 and Anxiety state, unspecified 300.00 [facility] [address] [address]- 6707 Sep, [facility] [id number] [address]- 7850 Sep, [facility] [id number] [address]- 5290 August, [facility] [id number] [place] [address] 447367- 6373 August, Major depression, recurrent 296.30 ; Anxiety, generalized 300.02 and No condition on [place] V71.09 [facility] [id number] [place] [address] 27089- 6174 August, [facility] [id number] [place] [address] 74881- 5000 August, [facility] [id number] [place] [address] 69733- 6595 Jul, [facility] [address] [address]- 2622 Jul, [facility] [address] [address]- 5908 Jul, [facility] [id number] [address] Jun, [facility] [id number] [address] Jun, [facility] [id number] [address] Jun, [facility] [id number] [address] Jun, [facility] [id number] [address] Jun, [facility] [id number] [address] 23 Jun, 2014 [facility] [place] [facility] [address] [id number] [place] [address] 23 Jun, 2014 [facility] [place] [facility] [address] [id number] [place] [address] 17 Jun, 2014 [facility] [place] [facility] [address] [id number] [place] [address] 13 Jun, 2014 [facility] [place] [facility] [address] [id number] [place] [address] 13 Jun, 2014 [facility] [place] [facility] [address] [id number] [place] [address] 10 Jun, 2014 [facility] [place] [facility] [address] [id number] [place] [address] 10 Jun, 2014 [facility] [place] [facility] [address] [facility] [id number] [place] [address] Jun, [facility] [place] [facility] [address] [facility] [id number] [place] [address] Jun, [facility] [place] [facility] [address] [id number] [place] [address] Jun, [facility] [place] [facility] [address] [facility] [id number] [place] [address] 1990 Jun, [facility] [place] [facility] [address] [id number] [place] [address] May, 2014 [facility] [place] [facility] [address] [id number] [place] [address] May, 2014 [facility] [place] [facility] [address] [id number] [place] [address] May, 2014 [facility] [place] [facility] [address] [id number] [place] [address] May, 2014 [facility] [place] [facility] [address] [id number] [place] [address] May, 2014 [facility] [place] [facility] [address] [id number] [place] [address]349 May, 2014 [facility] [place] [facility] [address] [id number] [place] [address]- [address] May, 2014 [facility] [place] [facility] [address] [id number] [place] [address]- [address] May, 2014 [facility] [place] [facility] [address] [id number] [place] [address] May, 2014 [facility] [place] [facility] [address] [id number] [place] [address]- [address] May, 2014 [facility] [place] [facility] [address] [id number] [place] [address]- [address] May, 2014 [facility] [place] [facility] [address] [id number] [place] [address]- [address] May, 2014 [facility] [place] [facility] [address] [id number] [place] [address]- [address] May, 2014 [facility] [place] [facility] [address] [id number] [place] [address]- [address] May, [facility] [place] [facility] [address] [facility] [id number] [place] [address]- [address] Apr, [facility] [place] [facility] [address] [id number] [place] [address] Apr, [facility] [place] [facility] [address] [id number] [place] [address] Apr, [facility] [place] [facility] [address] [id number] [place] [address]- [address] Apr, [facility] [place] [facility] [address] [id number] [place] [address]- [address] Apr, [facility] [place] [facility] [address] [facility] [id number] [place] [address] Apr, [facility] [place] [facility] [address] [id number] [place] [address] Apr, [facility] [address] [id number] [place] [address] Apr, [facility] [place] [facility] [address] [id number] [place] [address] 1014 Apr, [facility] [place] [facility] [address] [id number] [place] [address]- 5884 Apr, [facility] [place] [facility] [address] [id number] [place] [address] 4979 Apr, [facility] [place] [facility] [address] [id number] [place] [address] 9811 Apr, [facility] [place] [facility] [address] [id number] [place] [address] 8641 Mar, [facility] [place] [facility] [address] [id number] [place] [address] 5[address] 31 Mar, 2014 [facility] [place] [facility] [address] [id number] [place] [address] 8180 30 Mar, 2014 [facility] [place] [facility] [address] [id number] [place] [address] 8731 30 Mar, 2014 [facility] [place] [facility] [address] [id number] [place] [address]- 6733 29 Mar, 2014 [facility] [place] [facility] [address] [id number] [place] [address]- 7225 29 Mar, 2014 [facility] [place] [facility] [address] [id number] [place] [address]- 7460 19 Mar, 2014 [facility] [place] [facility] [address] [id number] [place] [address]- 4157 19 Mar, 2014 [facility] [place] [facility] [address] [id number] [place] [address]- 5664 15 Mar, 2014 [facility] [place] [facility] [address] [id number] [place] [address]- 3379 Mar, [facility] [place] [facility] [address] [id number] [place] [address]- 4934 Mar, [facility] [place] [facility] [address] [id number] [place] [address]- 0137 Mar, [facility] [place] [facility] [address] [id number] [place] [address] Mar, [facility] [place] [facility] [address] [id number] [place] [address]- 2505 Mar, [facility] [place] [facility] [address] [id number] [place] [address]- 1201 Mar, [facility] [place] [facility] [address] [id number] [place] [address]- 5571 Mar, [facility] [place] [facility] [address] [id number] [place] [address]- 6857 Mar, [facility] [place] [facility] [address] [id number] [place] [address]- 0578 Mar, [facility] [place] [facility] [address] [id number] [place] [address]- 5576 Mar, [facility] [place] [facility] [address] [id number] [place] [address]- 2117 Mar, [facility] [place] [facility] [address] [id number] [place] [address]- 8678 Feb, [facility] [place] [facility] [address] [id number] [place] [address]- 5131 Feb, [facility] [place] [facility] [address] [id number] [place] [address]- 7271 Feb, [facility] [place] [facility] [address] [id number] [place] [address]- 2131 Feb, [facility] [place] [facility] [address] [id number] [place] [address]- 0673 Feb, [facility] [place] [facility] [address] [id number] [place] [address]- 2228 Feb, [facility] [place] [facility] [address] [id number] [place] [address]- 1717 Feb, [facility] [place] [facility] [address] [id number] [place] [address]- 4750 Feb, [facility] [place] [facility] [address] [id number] [place] [address]- 0066 Feb, [facility] [place] [facility] [address] [id number] [place] [address]- 1077 Feb, [facility] [place] [facility] [address] [id number] [place] [address]- 7539 Feb, [facility] [place] [facility] [address] [id number] [place] [address]- 3614 Feb, [facility] [place] [facility] [address] [id number] [place] [address]- 1328 Feb, [facility] [place] [facility] [address] [id number] [place] [address]- 6052 Feb, [facility] [place] [facility] [address] [id number] [place] [address]- 6558 Feb, [facility] [place] [facility] [address] [id number] [place] [address]- 7561 Feb, [facility] [place] [facility] [address] [id number] [place] [address]- 9144 Feb, [facility] [place] [facility] [address] [id number] [place] [address]- 0572 Jan, [facility] [place] [facility] [address] [id number] [place] [address]- 5786 Jan, [facility] [place] [facility] [address] [id number] [place] [address]- 0527 Jan, [facility] [place] [facility] [address] [id number] [place] [address]- 5218 Jan, [facility] [place] [facility] [address] [id number] [place] [address]- 2810 Jan, [facility] [place] [facility] [address] [id number] [place] [address]- 6968 Jan, [facility] [place] [facility] [address] [id number] [place] [address]- 6236 Jan, [facility] [place] [facility] [address] [id number] [place] [address]- 8752 Jan, [facility] [place] [facility] [address] [id number] [place] [address]- 7562 Jan, [facility] [place] [facility] [address] [id number] [place] [address]- 6932 Jan, [facility] [place] [facility] [address] [id number] [place] [address]- 1943 Jan, [facility] [place] [facility] [address] [id number] [place] [address]- 0309 Dec, [facility] [place] [facility] [address] [id number] [place] [address]- 9927 Dec, [facility] [place] [facility] [address] [id number] [place] [address]- 7832 Nov, [facility] [place] [facility] [address] [id number] [place] [address]- 9525 Nov, [facility] [place] [facility] [address] [id number] [place] [address]- 7181 Nov, [facility] [place] [facility] [address] [id number] [place] [address]- 5216 Nov, [facility] [place] [facility] [address] [id number] [place] [address]- 4156 Nov, [facility] [place] [facility] [address] [id number] [place] [address]- 4569 Nov, [facility] [place] [facility] [address] [id number] [place] [address]- 0368 Nov, [facility] [place] [facility] [address] [id number] [place] [address]- 5989 Oct, [facility] [place] [facility] [address] [id number] [place] [address]- 4703 Oct, [facility] [place] [facility] [address] [id number] [place] [address]- 5712 Oct, [facility] [place] [facility] [address] [id number] [place] [address]- 8622 Oct, [facility] [place] [facility] [address] [id number] [place] [address]- 6908 Sep, [facility] [place] [facility] [address] [id number] [place] [address]- 1762 Sep, [facility] [place] [facility] [address] [id number] [place] [address]- 2286 Sep, [facility] [place] [facility] [address] [id number] [place] [address]- 3742 Sep, [facility] [place] [facility] [address] [id number] [place] [address]- 7550 Sep, [facility] [place] [facility] [address] [id number] [place] [address]- 2634 Sep, [facility] [place] [facility] [address] [id number] [place] [address]- 5199 Sep, [facility] [place] [facility] [address] [id number] [place] [address]- 6665 Sep, [facility] [place] [facility] [address] [id number] [place] [address]- 4587 Sep, [facility] [place] [facility] [address] [id number] [place] [address]- 1889 Sep, [facility] [place] [facility] [address] [id number] [place] [address]- 5866 Sep, [facility] [place] [facility] [address] [id number] [place] [address]- 5020 Sep, [facility] [address] [id number] [place] [address]- 4715 Sep, [facility] [place] [facility] [address] [id number] [place] [address]- 5854 Sep, [facility] [place] [facility] [address] [id number] [place] [address]- 0768 August, [facility] [place] [facility] [address] [id number] [place] [address]- 0491 August, [facility] [place] [facility] [address] [id number] [place] [address]- 8725 August, [facility] [place] [facility] [address] [id number] [place] [address]- 4497 August, [facility] [address] [id number] [place] [address]- 1824 August, [facility] [place] [facility] [address] [id number] [place] [address]- 7980 August, [facility] [place] [facility] [address] [id number] [place] [address]- 5259 August, [facility] [place] [facility] [address] [id number] [place] [address]- 5379 August, [facility] [place] [facility] [address] [id number] [place] [address]- 7148 August, [facility] [place] [facility] [address] [id number] [place] [address]- 9519 August, [facility] [place] [facility] [address] [id number] [place] [address]- 9934 August, [facility] [place] [facility] [address] [id number] [place] [address]- 0690 August, [facility] [place] [facility] [address] [id number] [place] [address]- 8253 August, [facility] [place] [facility] [address] [id number] [place] [address]- 0320 August, [facility] [place] [facility] [address] [id number] [place] 4463 August, [facility] [place] [facility] [address] [id number] [place] [address]- 4096 August, [facility] [place] [facility] [address] [id number] [place] [address]- 7260 August, [facility] [place] [facility] [address] [id number] [place] [address]- 7929 August, [facility] [place] [facility] [address] [id number] [place] [address]- 7294 August, [facility] [place] [facility] [address] [id number] [place] [address]- 4532 Jul, [facility] [place] [facility] [address] [id number] [place] [address]- 9304 Jul, [facility] [place] [facility] [address] [id number] [place] [address]- 0557 Jul, [facility] [place] [facility] [address] [id number] [place] [address]- 5295 Jul, [facility] [place] [facility] [address] [id number] [place] [address]- 0706 Jun, [facility] [place] [facility] [address] [id number] [place] [address]- 9443 Jun, [facility] [place] [facility] [address] [id number] [place] [address]- 2656 Jun, [facility] [place] [facility] [address] [id number] [place] [address]- 9045 Jun, [facility] [place] [facility] [address] [id number] [place] [address]- 0363 Jun, [facility] [place] [facility] [address] [id number] [place] [address]- 2570 Jun, 2013 [facility] [place] [facility] [address] [id number] [place] [address]- 3339 Jun, [facility] [place] [facility] [address] [id number] [place] [address]- 6528 14 Jun, 2013 [facility] [place] [facility] [address] [facility] [id number] [place] [address]- 1099 Jun, [facility] [place] [facility] [address] [id number] [place] [address]- 7680 Jun, [facility] [place] [facility] [address] [id number] [place] [address]- 7319 May, [facility] [place] [facility] [address] [facility] [id number] [place] [address]- 4377 May, [facility] [place] [facility] [address] [facility] [id number] [place] [address]- 8692 May, [facility] [place] [facility] [address] [id number] [place] [address]- 9173 May, [facility] [place] [facility] [address] [facility] [id number] [place] [address]- 6810 May, [facility] [place] [facility] [address] [facility] [id number] [place] [address]- 1813 May, [facility] [place] [facility] [address] [facility] [id number] [place] [address]- 3299 20 May, 2013 [facility] [place] [facility] [address] [facility] [id number] [place] [address]- 6207 May, [facility] [place] [facility] [address] [id number] [place] [address]- 2606 May, [facility] [place] [facility] [address] [facility] [id number] [place] [address]- 6973 18 May, 2013 [facility] [place] [facility] [address] [facility] [id number] [place] [address]- 0499 May, [facility] [place] [facility] [address] [id number] [place] [address]- 3612 17 May, 2013 [facility] [place] [facility] [address] [id number] [place] [address]- 8266 May, [facility] [place] [facility] [address] [id number] [place] [address]- 8556 May, [facility] [place] [facility] [address] [id number] [place] [address]- 7628 May, [facility] [place] [facility] [address] [id number] [place] [address]- 4414 May, [facility] [place] [facility] [address] [id number] [place] [address]- 8819 May, [facility] [place] [facility] [address] [id number] [place] [address]- 0698 Apr, [facility] [place] [facility] [address] [id number] [place] [address]- 7436 Apr, [facility] [place] [facility] [address] [id number] [place] [address]- 3580 Apr, [facility] [place] [facility] [address] [id number] [place] [address]- 3712 Apr, [facility] [place] [facility] [address] [id number] [place] [address]- 0325 Apr, [facility] [place] [facility] [address] [id number] [place] [address]- 4760 Apr, [facility] [place] [facility] [address] [id number] [place] [address]- 7618 Apr, [facility] [place] [facility] [address] [id number] [place] [address]- 1842 Mar, [facility] [place] [facility] [address] [id number] [place] [address]- 7835 Mar, [facility] [place] [facility] [address] [id number] [place] [address]- 5016 Mar, [facility] [address] [id number] [place] [address]- 5529 Mar, [facility] [address] [id number] [place] 0825 Mar, [facility] [address] [id number] [place] [address]- 3836 Mar, [facility] [place] [facility] [address] [id number] [place] [address]- 3380 Mar, [facility] [address] [id number] [place] [address]- 5287 Mar, [facility] [address] [id number] [place] [address]- 1515 Mar, [facility] [address] [id number] [place] [address]- 1575 Mar, [facility] [address] [id number] [place] [address]- 4170 Mar, [facility] [address] [id number] [place] [address]- 6036 Feb, [facility] [address] [facility] [id number] [place] [address]- 6011 Feb, [facility] [place] [facility] [address] [id number] [place] [address]- 6540 Feb, [facility] [place] [facility] [address] [id number] [place] [address]- 2350 Feb, [facility] [place] [facility] [address] [id number] [place] [address]- 6539 Feb, [facility] [place] [facility] [address] [id number] [place] [address]- 7485 Feb, [facility] [place] [facility] [address] [facility] [id number] [place] [address]- 0444 15 Feb, 2013 [facility] [place] [facility] [address] [id number] [place] [address]- 9541 14 Feb, 2013 [facility] [place] [facility] [address] [id number] [place] [address]- 7592 14 Feb, 2013 [facility] [place] [facility] [address] [id number] [place] [address]- 4761 13 Feb, 2013 [facility] [place] [facility] [address] [id number] [place] [address]- 3433 Feb, [facility] [place] [facility] [address] [id number] [place] [address]- 4958 Feb, [facility] [place] [facility] [address] [id number] [place] [address]- 5556 Feb, [facility] [place] [facility] [address] [id number] [place] [address]- 1346 Feb, [facility] [place] [facility] [address] [id number] [place] [address]- 2286 Feb, [facility] [place] [facility] [address] [id number] [place] [address]- 9463 Feb, [facility] [place] [facility] [address] [id number] [place] [address]- 4393 Jan, [facility] [place] [facility] [address] [id number] [place] [address]- 6589 Jan, [facility] [place] [facility] [address] [id number] [place] [address]- 0837 Jan, [facility] [place] [facility] [address] [id number] [place] [address]- 0615 Jan, [facility] [place] [facility] [address] [id number] [place] [address]- 2379 Jan, [facility] [place] [facility] [address] [id number] [place] [address]- 1682 Jan, [facility] [place] [facility] [address] [id number] [place] [address]- 2785 Jan, [facility] [place] [facility] [address] [id number] [place] [address]- 8951 Jan, [facility] [place] [facility] [address] [id number] [place] [address]- 0025 10 Jan, 2013 [facility] [place] [facility] [address] [id number] [place] [address]- 5682 27 Dec, 2012 [facility] [place] [facility] [address] [id number] [place] [address]- 2352 20 Dec, 2012 [facility] [place] [facility] [address] [id number] [place] [address]- 2358 19 Dec, 2012 [facility] [place] [facility] [address] [id number] [place] [address]- 3150 10 Dec, 2012 [facility] [place] [facility] [address] [id number] [place] [address]- 4754 04 Dec, 2012 [facility] [place] [facility] [address] [id number] [place] [address]- 4797 Dec, [facility] [place] [facility] [address] [id number] [place] [address]- 6297 Nov, [facility] [place] [facility] [address] [id number] [place] [address]- 9396 Nov, [facility] [place] [facility] [address] [id number] [place] [address]- 5319 Nov, [facility] [place] [facility] [address] [id number] [place] [address]- 6772 Nov, [facility] [place] [facility] [address] [id number] [place] [address]- 8746 Nov, [facility] [place] [facility] [address] [id number] [place] [address]- 9659 Nov, [facility] [place] [facility] [address] [id number] [place] [address] Nov, [facility] [place] [facility] [address] [id number] [place] [address] 15 Nov, 2012 [facility] [address] [id number] [place] [address] Nov, [facility] [address] [id number] [place] [address] Nov, [facility] [address] [id number] [place] [address] Oct, [facility] [address] [id number] [place] [address] Oct, [facility] [address] [id number] [place] [address] Oct, [facility] [address] [id number] [place] [address] Oct, [facility] [address] [id number] [place] [address] Oct, [facility] [address] [id number] [place] [address] Oct, [facility] [place] [facility] [address] [id number] [place] [address] Oct, [facility] [address] [id number] [place] [address] Oct, [facility] [place] [facility] [address] [id number] [place] [address] Sep, [facility] [place] [facility] [address] [id number] [place] [address] Sep, [facility] [place] [facility] [address] [id number] [place] [address] Sep, [facility] [place] [facility] [address] [id number] [place] [address] Sep, [facility] [place] [facility] [address] [id number] [place] [address] Sep, [facility] [address] [id number] [place] [address] Sep, [facility] [address] [id number] [place] [address] Sep, [facility] [address] [id number] [place] [address] Sep, [facility] [address] [id number] [place] [address] August, [facility] [address] [id number] [place] [address] August, [facility] [address] [id number] [place] [address] August, [facility] [address] [id number] [place] [address] August, [facility] [address] [id number] [place] [address] 4068 August, [facility] [address] [id number] [place] [address] Jul, [facility] [address] [id number] [place] [address] Jul, [facility] [address] [id number] [place] [address] Jul, [facility] [address] [id number] [place] [address] Jul, [facility] [address] [id number] [place] [address] 89[address] Jul, [facility] [place] [facility] [address] [id number] [place] [address] Jun, [facility] [place] [facility] [address] [id number] [place] [address] Jun, [facility] [place] [facility] [address] [id number] [place] [address] 15 Jun, 2012 [facility] [address] [id number] [place] [address] 14 Jun, 2012 [facility] [address] [id number] [place] [address]- [address]65 Jun, [facility] [address] [facility] [id number] [place] [address] Jun, [facility] [address] [id number] [place] [address]- 46[address] 08 Jun, 2012 [facility] [address] [id number] [place] [address]- [address] Jun, [facility] [address] [id number] [place] [address] Jun, [facility] [address] [id number] [place] [address] May, [facility] [address] [id number] [place] [address] May, [facility] [address] [id number] [place] [address] May, [facility] [address] [facility] [id number] [place] [address]- 4769 May, [facility] [address] [facility] [id number] [place] [address]- [address]562 Apr, [facility] [place] [facility] [address] [id number] [place] [address] Apr, [facility] [place] [facility] [address] [id number] [place] [address] Apr, [facility] [place] [facility] [address] [id number] [place] [address]- 9827 Apr, [facility] [place] [facility] [address] [facility] [id number] [place] [address] Apr, [facility] [place] [facility] [address] [id number] [place] [address] Apr, [facility] [address] [id number] [place] [address] Apr, [facility] [address] [id number] [place] [address] Mar, [facility] [address] [place] [id number] Mar, [facility] [address] [id number] [place] [address] Mar, [facility] [address] [id number] [place] [address] 5123 Mar, [facility] [address] [id number] [place] [address] 3[address] Mar, [facility] [address] [id number] [place] [address] 0[address] Mar, [facility] [address] [id number] [place] [address] Mar, [facility] [address] [id number] [place] [address] 240[address] Mar, [facility] [address] [id number] [place] [address]387 Mar, [facility] [address] [id number] [place] [address] Mar, [facility] [address] [id number] [place] [address] Mar, [facility] [address] [id number] [place] [address] 6150 Mar, [facility] [address] [id number] [place] [address]- [address] Mar, [facility] [address] [id number] [place] [address]- 8671 Mar, [facility] [place] [facility] [address] [id number] [place] [address]- [address] Mar, [facility] [place] [facility] [address] [id number] [place] [address] Mar, [facility] [place] [facility] [address] [id number] [place] [address] Mar, [facility] [place] [facility] [address] [id number] [place] [address] Feb, [facility] [place] [facility] [address] [id number] [place] [address] Feb, [facility] [place] [facility] [address] [id number] [place] [address] Feb, [facility] [place] [facility] [address] [id number] [place] [address] Feb, [facility] [place] [facility] [address] [id number] [place] [address] Feb, [facility] [place] [facility] [address] [id number] [place] [address]652 Feb, [facility] [place] [facility] [address] [id number] [place] [address] Feb, [facility] [place] [facility] [address] [id number] [place] [address] Feb, [facility] [place] [facility] [address] [id number] [place] [address] 8489 Feb, [facility] [place] [facility] [address] [id number] [place] [address] 9[address] Feb, [facility] [place] [facility] [address] [id number] [place] [address] Feb, [facility] [place] [facility] [address] [id number] [place] [address] Feb, [facility] [place] [facility] [address] [id number] [place] [address] 295[address] Feb, [facility] [place] [facility] [address] [id number] [place] [address]- 8964 Feb, [facility] [place] [facility] [address] [id number] [place] [address]- 4498 Feb, [facility] [place] [facility] [address] [facility] [id number] [place] [address] 4260 Feb, [facility] [place] [facility] [address] [id number] [place] [address]- 7557 Jan, [facility] [place] [facility] [address] [id number] [place] [address]- 7229 Jan, [facility] [place] [facility] [address] [facility] [id number] [place] [address] 3626 Jan, [facility] [place] [facility] [address] [facility] [id number] [place] [address] 1907 Jan, [facility] [place] [facility] [address] [facility] [id number] [place] [address]- 1620 Jan, [facility] [place] [facility] [address] [facility] [id number] [place] [address]- 6066 Jan, [facility] [place] [facility] [address] [facility] [id number] [place] [address]- 0954 Jan, [facility] [place] [facility] [address] [facility] [id number] [place] [address] 9[address] Jan, [facility] [place] [facility] [address] [facility] [id number] [place] [address]- 5[address] Jan, [facility] [place] [facility] [address] [id number] [place] [address] 8274 Jan, [facility] [place] [facility] [address] [facility] [id number] [place] [address]- 67[address] Jan, [facility] [place] [facility] [address] [facility] [id number] [place] [address]- 3185 Jan, [facility] [place] [facility] [address] [id number] [place] [address]- 8034 11 Jan, 2012 [facility] [place] [facility] [address] [id number] [place] [address]- 0844 11 Jan, 2012 [facility] [place] [facility] [address] [id number] [place] [address]- 4446 08 Jan, 2012 [facility] [place] [facility] [address] [id number] [place] [address]- 9740 05 Jan, 2012 [facility] [place] [facility] [address] [id number] [place] [address]- 6550 04 Jan, 2012 [facility] [place] [facility] [address] [id number] [place] [address]- 2529 21 Dec, 2011 [facility] [place] [facility] [address] [id number] [place] [address]- 4458 20 Dec, 2011 [facility] [place] [facility] [address] [id number] [place] [address]- 9000 18 Dec, 2011 [facility] [place] [facility] [address] [id number] [place] [address] 254 18 Dec, 2011 [facility] [place] [facility] [address] [id number] [place] [address]- 5046 10 Dec, 2011 [facility] [place] [facility] [address] [id number] [place] [address] 2546 10 Dec, 2011 [facility] [place] [facility] [address] [id number] [place] [address] 2545 10 Dec, 2011 [facility] [place] [facility] [address] [id number] [place] [address] 2545 07 Dec, 2011 [facility] [place] [facility] [address] [id number] [place] [address] 2546 30 Nov, 2011 [facility] [place] [facility] [address] [id number] [place] [address]- 2546 Nov, [facility] [place] [facility] [address] [id number] [place] [address]- 6066 Nov, [facility] [place] [facility] [address] [id number] [place] [address]- 6478 Nov, [facility] [place] [facility] [address] [id number] [place] [address]- 8789 Nov, [facility] [place] [facility] [address] [id number] [place] [address]- 5003 Nov, [facility] [place] [facility] [address] [id number] [place] [address]- 8191 Oct, [facility] [place] [facility] [address] [id number] [place] [address]- 7672 Oct, [facility] [place] [facility] [address] [id number] [place] [address]- 2626 Oct, [facility] [place] [facility] [address] [id number] [place] [address]- 1345 Oct, [facility] [place] [facility] [address] [id number] [place] [address] 7519 Oct, [facility] [place] [facility] [address] [id number] [place] [address]- 6764 Oct, [facility] [place] [facility] [address] [id number] [place] [address]- 2438 Oct, [facility] [place] [facility] [address] [id number] [place] [address]- 6049 Sep, [facility] [place] [facility] [address] [id number] [place] [address]- 3167 Sep, [facility] [place] [facility] [address] [id number] [place] [address]- 6840 Sep, [facility] [place] [facility] [address] [id number] [place] [address]- 6926 Sep, [facility] [place] [facility] [address] [id number] [place] [address]- 2924 Sep, [facility] [place] [facility] [address] [id number] [place] [address]- 2946 15 Sep, 2011 [facility] [address] [id number] [place] [address]- 3436 14 Sep, 2011 [facility] [place] [facility] [address] [id number] [place] [address]- 7094 11 Sep, 2011 [facility] [address] [id number] [place] [address]- 5841 05 Sep, 2011 [facility] [place] [facility] [address] [id number] [place] [address]- 9808 04 Sep, 2011 [facility] [address] [id number] [place] [address]- 1351 August, [facility] [place] [facility] [address] [id number] [place] [address]- 3453 August, [facility] [address] [id number] [place] [address]- 5186 August, [facility] [address] [id number] [place] [address]- 4586 August, [facility] [address] [id number] [place] [address]- 7979 August, [facility] [address] [id number] [place] [address]- 5698 Jul, [facility] [place] [facility] [address] [id number] [place] [address]- 6626 Jul, [facility] [place] [facility] [address] [id number] [place] [address]- 2872 25 Jul, 2011 [facility] [place] [facility] [address] [id number] [place] [address]- 5294 17 Jul, 2011 [facility] [place] [facility] [address] [id number] [place] [address]- 7915 Jul, [facility] [place] [facility] [address] [id number] [place] [address]- 0863 Jul, [facility] [place] [facility] [address] [id number] [place] [address]- 1656 Jul, [facility] [place] [facility] [address] [id number] [place] [address]- 6106 Jun, [facility] [place] [facility] [address] [id number] [place] [address]- 6626 Jun, [facility] [place] [facility] [address] [id number] [place] [address]- 2246 Jun, [facility] [place] [facility] [address] [id number] [place] [address]- 0745 Jun, [facility] [place] [facility] [address] [id number] [place] [address]- 5416 Jun, [facility] [place] [facility] [address] [id number] [place] [address]- 4587 May, [facility] [place] [facility] [address] [id number] [place] [address]- 9787 May, [facility] [place] [facility] [address] [id number] [place] [address]- 1675 May, [facility] [place] [facility] [address] [id number] [place] [address]- 7852 May, [facility] [place] [facility] [address] [id number] [place] [address]- 3092 May, [facility] [place] [facility] [address] [id number] [place] [address]- 1422 May, [facility] [place] [facility] [address] [id number] [place] [address]- 1736 Apr, [facility] [place] [facility] [address] [id number] [place] [address]- 2686 Mar, [facility] [place] [facility] [address] [id number] [place] [address] 2546 Feb, [facility] [place] [facility] [address] [id number] [place] [address]- 8760 07 Feb, 2011 [facility] [place] [facility] [address] [id number] [place] [address]- 9327 Feb, [facility] [place] [facility] [address] [id number] [place] [address]32 02 Feb, 2011 [facility] [place] [facility] [address] [id number] [place] [address] 31 Jan, 2011 [facility] [place] [facility] [address] [id number] [place] [address]- 5988 27 Jan, 2011 [facility] [place] [facility] [address] [id number] [place] [address], [place] [address]114 Jan, [facility] [place] [facility] [address] [id number] [place] [address]- 3875 24 Jan, 2011 [facility] [address] [id number] [place] [address], [place] [address]- 4907 14 Jan, 2011 [facility] [place] [facility] [address] [id number] [place] [address]- 9597 Dec, [facility] [place] [facility] [address] [id number] [place] [address]- 2727 Oct, [facility] [place] [facility] [address] [id number] [place] [address]- 2261 August, [facility] [place] [facility] [address] [id number] [place] [address]- 7174 29 Mar, 2010 [facility] [place] [facility] [address] [id number] [place] [address]- 0059 27 Mar, 2010 [facility] [place] [facility] [address] [id number] [place] [address]863 16 Mar, 2010 [facility] [place] [facility] [address] [id number] [place] 6601 15 Mar, 2010 [facility] [place] [facility] [address] [id number] [place] [address]24 15 Mar, 2010 [facility] [place] [facility] [address] [id number] [place] [address]- 2724 08 Mar, 2010 [facility] [place] [facility] [address] [id number] [place] [address]- 3216 Mar, [facility] [place] [facility] [address] [id number] [place] [address]- 0018 Feb, [facility] [place] [facility] [address] [id number] [place] [address]- 2893 24 Feb, 2010 [facility] [place] [facility] [address] [id number] [place] [address]- 6291 15 Feb, 2010 [facility] [place] [facility] [address] [id number] [place] [address]- 6504 Jan, [facility] [place] [facility] [address] [id number] [place] 2597 Jan, [facility] [place] [facility] [address] [id number] [place] [address]- 6855 18 Jan, 2010 [facility] [place] [facility] [address] [id number] [place] [address]- 9249 Nov, [facility] [place] [facility] [address] [id number] [place] [address]- 9380 Sep, [facility] [place] [facility] [address] [id number] [place] [address]- 7664 August, [facility] [place] [facility] [address] [id number] [place] [address]- 2133 30 Mar, 2009 [facility] [place] [facility] [address] [id number] [place] [address]- 2051 07 Mar, 2009 [facility] [place] [facility] [address] [id number] [place] [address] 2546 17 Feb, 2009 [facility] [place] [facility] [address] [id number] [place] [address] 254 10 Feb, 2009 [facility] [place] [facility] [address] [id number] [place] [address]- 4825 Feb, [facility] [address] [id number] [address] 8147 Feb, [facility] [id number] [place] [address] Feb, [facility] [id number] [address]18 Jan, [facility] [address] [id number] [address]64 Jan, [facility] [id number] [address]- 5943 Jan, [facility] [id number] [place] [address]- 0699 Jan, [facility] [id number] [address]- 1843 Nov, [facility] [id number] [address]- 8370 Sep, [facility] [id number] [address]- 4361 August, [facility] [id number] [address]- 1330 Jul, [facility] [id number] [address]- 7622 May, IMMUNIZATIONS No Known Immunizations SOCIAL HISTORY Never Assessed REASON FOR VISIT Requests return call/ PLAN OF CARE VITAL SIGNS MEDICATIONS Unknown [...] Knee Surgery 07/16/17 Hospitalization History [facility]- left hand/wrist swelling 10/09/2017
--- OUTSIDE RECORDS SUMMARY | 2018-02-10 11:14 | XMS REPORT ---
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 Active 57214820 Problem Colon polyp K63.5 Active 29501751 Problem Screening breast examination Z12.39 Active 875533759 Problem Bilateral low back pain without sciatica M54.5 Active 976032421 Problem Postmenopausal Z78.0 Active 77864725 Problem Essential tremor G25.0 Active 23701399 Problem Osteopenia M85.80 Active 742830315 Problem Hyperlipidemia E78.5 Active 08578222 Problem Cigarette nicotine dependence without complication F17.210 Active 18727504 Problem Vascular dementia without behavioral disturbance F01.50 Active 28070404676543611 Problem Arthritis M19.90 Active 4472379 Problem Chronic atrial fibrillation I48.2 Active 437118395 Problem Dementia without behavioral disturbance, unspecified dementia type F03.90 Active 32273406 Problem Other chronic pancreatitis K86.1 Active 743553880 Problem Xeroderma Q80.9 Active 86679362 Problem Chronic obstructive pulmonary disease with acute lower respiratory infection J44.0 Active 518718758 Problem Type 2 diabetes mellitus with diabetic neuropathy, without long-term current use of insulin E11.40 Active 77760518 Problem Atherosclerosis of [place] artery of both lower extremities with intermittent claudication I70.213 Active 525986981665896 Problem Hammertoe of right foot M20.41 Active 926217987 Problem Hammertoe of left foot M20.42 Active 447684072 Problem Migraine without aura and with status migrainosus, not intractable G43.001 Active 622859714 Problem Migraine without aura and without status migrainosus, not intractable G43.009 Active 036119266 Problem Major depressive disorder, recurrent episode, moderate F33.1 Active 021093082 Problem Unspecified psychosis F29 Active 02016164 Problem Cervicalgia M54.2 Active 3037743746547 Problem Diabetic polyneuropathy associated with type 2 diabetes mellitus E11.42 Active 17109295 Problem COPD (chronic obstructive pulmonary disease) J44.9 Active 61521127 Problem 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.118 Active 8884967282748 Problem Gastroparesis K31.84 Active 703198591 Problem Stress incontinence of urine N39.3 Active 94384323 Problem Osteoporosis M81.0 Active 51268805 Problem Controlled type 2 diabetes mellitus without complication, without long -term current use of insulin E11.9 Active 348871172 Problem Barretts esophagus K22.70 Active 982073203 Problem Chronic fatigue R53.82 Active 91442692 Problem History of common bile duct surgery Z98.89 Active 035224737 Problem Bipolar affective disorder, currently depressed, moderate F31.32 Active 174028817 Problem Generalized anxiety disorder F41.1 Active 724043719 Problem Gastroesophageal reflux disease, esophagitis presence not specified K21.9 Active 196122770 Problem Coronary artery disease involving [place] coronary artery of [place] heart with other form of angina pectoris I25.118 Active 8071190586925 Problem Postconcussion syndrome F07.81 Active 47969118 Problem Chronic pain syndrome G89.4 Active 455368828 Problem Type 2 diabetes mellitus with diabetic peripheral angiopathy without gangrene E11.51 Active 638218810 Problem Paroxysmal atrial fibrillation I48.0 Active 182183061 Problem Unspecified atherosclerosis of [place] arteries of extremities, unspecified extremity I70.209 Active 215183125891137 Problem Acute exacerbation of chronic obstructive pulmonary disease (COPD) J44.1 Active 323450234 Problem Crohn''s disease without complication, unspecified gastrointestinal tract location K50.90 Active 09262899 ALLERGIES No Information ENCOUNTERS Encounter Location Date Diagnosis [facility] [address] [facility] [id number] [address] Feb, [facility] [address] [facility] [id number] [address] Dec, [facility] [address] [facility] [id number] [address] Dec, High risk medication use Z79.899 [facility] [address] [address] 25 Dec, 2017 [facility] [address] [place] [id number] [place] [address] 04219- 1643 24 Dec, 2017 [facility] [address] [address] 7857 19 Dec, 2017 [facility] [address] [id number] [place] [address] 98715- 4334 19 Dec, 2017 [facility] [id number] [place] [address] 52084- 3946 18 Dec, 2017 [facility] [id number] [place] [address] 69163- 9223 14 Dec, 2017 [facility] [id number] [place] [address] 44993- 4494 14 Dec, 2017 [facility] [id number] [place] [address] 42613- 1435 13 Dec, 2017 [facility] [address] [address] 1397 Dec, Type 2 diabetes mellitus with diabetic peripheral angiopathy without gangrene E11.51 ; Contusion of face, initial encounter S00.83XA and Bronchitis J40 [facility] [address] [address] 7101 Dec, [facility] [id number] [place] [address] 73139- 9339 06 Dec, 2017 [facility] [address] [address] 9575 Nov, [facility] [address] [address] 4472 Nov, Onychomycosis B35.1 ; Hammertoe of left foot M20.42 ; Hammertoe of right foot M20.41 and Type 2 diabetes mellitus with diabetic neuropathy, without long-term current use of insulin E11.40 [place] [id number] [place] [address] 16563- 4761 Nov, [place] [address] [id number] [place] [address] 80278- 9281 Nov, Bronchitis J40 [facility] [id number] [place] [address] 53962- 4632 Oct, [place] [place] [address] [address] [id number] [place] [address] 48368- 7330 Oct, Bipolar affective disorder, currently depressed, moderate F31.32 ; Vascular dementia without behavioral disturbance F01.50 and Generalized anxiety disorder F41.1 [place] [address] [address] [id number] [place] [address] 33980- 5322 Oct, [place] [address] [id number] [place] [address] 20325- 7840 Oct, [place] [place] [address] [id number] [place] [address] 10087- 4679 Oct, Edema of both legs R60.0 [place] [address] [id number] [place] [address] 17648- 4034 Oct, [place] [address] [id number] [place] [address] 86945- 9954 Sep, [place] [address] [address] [id number] [place] [address] 35324- 2965 Sep, [place] [address] [address] [id number] [place] [address] 58847- 4183 Sep, [place] [id number] [place] [address] 93976- 4678 18 Sep, 2017 Encounter for well woman exam with routine gynecological exam Z01.419 ; Screening for STDs (sexually transmitted diseases) Z11.3 ; Screening breast examination Z12.31 and Overweight (BMI 25.0-29.9) E66.3 [place] [id number] [place] [address] 69460- 2919 Sep, [facility] [address] [address] 2909 Sep, [facility] [id number] [place] [address] 517325- 6107 Sep, [facility] [id number] [place] [address] 592966- 7477 August, [facility] [id number] [place] [address] 56304- 7680 August, [facility] [id number] [place] [address] 92638- 7722 August, Type 2 diabetes mellitus with diabetic neuropathy, without long-term current use of insulin E11.40 and Sprain of right ankle, unspecified ligament, initial encounter S93.401A [facility] [id number] [place] [address] 51749- 5803 August, [facility] [id number] [address]- 1821 August, [facility] [id number] [place] [address] 13884- 3179 August, [facility] [address] [address] 1733 August, Gastroesophageal reflux disease, esophagitis presence not specified K21.9 [facility] [address] [address] 2458 August, [facility] [address] 2145 August, [facility] [address] 3143 August, [facility] [address] [address] August, Type 2 diabetes mellitus with diabetic neuropathy, without long-term current use of insulin E11.40 and Elevated liver enzymes R74.8 [facility] [id number] [place] [address] 32555- 1680 Jul, [facility] [address] 26778- 4749 Jul, Cough R05 [facility] [id number] [place] [address] 40558- 3213 Jul, [facility] [address] 99766- 5077 Jul, [facility] [id number] [place] [address] 63012- 7873 Jul, Bipolar affective disorder, currently depressed, moderate F31.32 ; Vascular dementia without behavioral disturbance F01.50 and Generalized anxiety disorder F41.1 [facility] [id number] [place] [address] 59591- 6360 Jul, [facility] [id number] [place] [address] 39213- 7875 Jul, Type 2 diabetes mellitus with diabetic neuropathy, without long-term current use of insulin E11.40 and Elevated liver enzymes R74.8 [facility] [id number] [place] [address] 95392- 2539 Jul, [facility] [id number] [place] [address] 31552- 0082 Jul, [facility] [id number] [place] [address] 58593- 6595 17 Jul, 2017 [facility] [id number] [place] [address] 29563- 3582 Jul, Post-menopausal Z78.0 [facility] [id number] [place] [address] 61057- 7317 Jul, Stress incontinence of urine N39.3 [facility] [id number] [place] [address] 51769- 7217 Jul, [facility] [id number] [place] [address] 92412- 1883 Jul, [facility] [id number] [place] [address] 65413- 3106 Jul, Stress incontinence of urine N39.3 and Cough R05 [facility] [id number] [place] [address] 57910- 4367 Jul, [facility] [id number] [place] [address] 02311- 6503 Jul, [facility] [id number] [place] [address] 43918- 7530 Jul, [facility] [id number] [place] [address] 64722- 7184 Jul, Gastroesophageal reflux disease, esophagitis presence not specified K21.9 [facility] [id number] [place] [address] 72061- 3197 Jun, Diabetic polyneuropathy associated with type 2 diabetes mellitus E11.42 [facility] [id number] [place] [address] 28512- 5162 Jun, Diabetic polyneuropathy associated with type 2 diabetes mellitus E11.42 ; Coronary artery disease involving [place] coronary artery of [place] heart with other form of angina pectoris I25.118 and Paroxysmal atrial fibrillation I48.0 [facility] [id number] [place] [address] 89874- 8446 Jun, [facility] [id number] [place] [address] 34892- 7116 Jun, [facility] [id number] [place] [address] 59052- 3460 Jun, Gastroenteritis K52.9 [facility] [id number] [place] [address] 63851- 4870 Jun, Gastroenteritis K52.9 [facility] [id number] [place] [address] 15519- 1920 Jun, [place] [id number] [place] [address] 97531- 9068 Jun, [place] [id number] [place] [address] 23902- 6606 Jun, Sprain of right ankle, unspecified ligament, initial encounter S93.401A ; Type 2 diabetes mellitus with diabetic neuropathy, without long-term current use of insulin E11.40 ; Atherosclerosis of [place] artery of both lower extremities with intermittent claudication I70.213 ; 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.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 ; Chronic atrial fibrillation I48.2 and Crohn''s disease without complication, unspecified gastrointestinal tract location K50.90 [facility] [id number] [place] [address] 14019 -6773 17 Jun, 2017 Cough R05 and Chronic obstructive pulmonary disease with acute lower respiratory infection J44.0 [place] [id number] [place] [address] 46145- 4804 16 Jun, 2017 [place] [id number] [place] [address] 01158- 5672 15 Jun, 2017 Coughing R05 ; Unspecified atherosclerosis of [place] arteries of extremities, unspecified extremity I70.209 ; Type 2 diabetes mellitus with diabetic peripheral angiopathy without gangrene E11.51 ; Crohn''s disease without complication, unspecified gastrointestinal tract location K50.90 ; Other chronic pancreatitis K86.1 and Chronic atrial fibrillation I48.2 [facility] [id number] [place] [address] 40008 -9124 Jun, [place] [id number] [place] [address] 40908- 4559 Jun, Bipolar affective disorder, currently depressed, moderate F31.32 ; Vascular dementia without behavioral disturbance F01.50 and Generalized anxiety disorder F41.1 [place] [id number] [place] [address] 00427- 4589 May, Generalized anxiety disorder F41.1 [place] [id number] [place] [address] 33126- 6752 May, [facility] [id number] [place] [address] 32606- 9483 May, [facility] [id number] [place] [address] 50786- 4349 May, Coughing R05 [place] [address] 02280- 7767 May, [facility] [address] 89415- 0354 May, Bipolar affective disorder, currently depressed, moderate F31.32 ; Vascular dementia without behavioral disturbance F01.50 and Generalized anxiety disorder F41.1 [place] [address] 24928- 1964 Apr, Generalized anxiety disorder F41.1 [place] [address] 04454- 0746 Apr, [place] [id number] [place] [address] 36191- 2496 Apr, Vascular dementia without behavioral disturbance F01.50 ; Generalized anxiety disorder F41.1 and Bipolar affective disorder, currently depressed, moderate F31.32 [place] [address] [place] [id number] [place] [address] 70527- 1317 Apr, Generalized anxiety disorder F41.1 [facility] [id number] [place] [address] 44172 -9775 Apr, Cough R05 and Acute exacerbation of chronic obstructive pulmonary disease (COPD) J44.1 [place] [address] 91524- 7890 Apr, [facility] [id number] [place] [address] 27011 -1542 Mar, Cough R05 and Cigarette nicotine dependence without complication F17.210 [place] [address] 85770- 7583 Mar, [place] [address] [id number] [place] [address] 68445- 6558 Feb, Generalized anxiety disorder F41.1 ; Major depressive disorder, recurrent episode, moderate F33.1 ; Vascular dementia without behavioral disturbance F01.50 and Unspecified psychosis F29 [place] [id number] [place] [address] 72679- 6353 Feb, [place] [id number] [place] [address] 68580- 9965 Feb, [place] [id number] [place] [address] 96998- 8350 Feb, Generalized anxiety disorder F41.1 [place] [id number] [place] [address] 50861- 5250 Feb, Generalized anxiety disorder F41.1 [place] [id number] [place] [address] 52653- 5098 Feb, Dizziness R42 ; Chronic fatigue R53.82 ; Postconcussion syndrome F07.81 ; Fall, initial encounter W19.XXXA and Disorientation R41.0 [place] [address] [id number] [place] [address] 03596- 7349 Feb, Postconcussion syndrome F07.81 ; Injury of head, initial encounter S09.90XA ; Fall, initial encounter W19.XXXA ; Disorientation R41.0 and Acute cystitis with hematuria N30.01 [place] [address] [place] [address] 51512- 5689 Jan, Gastroesophageal reflux disease, esophagitis presence not specified K21.9 ; Post-menopausal Z78.0 and Migraine without aura and without status migrainosus, not intractable G43.009 [place] [address] [place] [id number] [place] [address] 10298- 8373 Jan, [place] [id number] [place] [address] 57275- 9579 Jan, Generalized anxiety disorder F41.1 ; Major depressive disorder, recurrent episode, moderate F33.1 ; Vascular dementia without behavioral disturbance F01.50 and Unspecified psychosis F29 [place] [address] [id number] [place] [address] 49193- 9947 Jan, Pneumonia of left lower lobe due to infectious organism J18.1 [place] [address] [place] [id number] [place] [address] 19169- 1324 Jan, Migraine without aura and with status migrainosus, not intractable G43.001 [facility] [id number] [place] [address] 78649 -4337 Jan, Migraine without aura and without status migrainosus, not intractable G43.009 [place] [address] [place] [id number] [place] [address] 21621- 6215 Dec, Hematoma T14.8 [place] [address] 87543- 0279 Dec, [facility] [id number] [place] [address] 98546 -2845 Nov, Fatigue, unspecified type R53.83 [place] [id number] [place] [address] 16800- 0278 Nov, Scabies B86 and Coronary artery disease involving [place] coronary artery of [place] heart with other form of angina pectoris I25.118 [place] [address] [id number] [place] [address] 58950- 0771 Nov, [place] [id number] [place] [address] 66602- 0240 Nov, [place] [address] 76111- 8390 Oct, [place] [address] [place] [id number] [place] [address] 63093- 6228 Oct, Generalized anxiety disorder F41.1 and Major depressive disorder, recurrent episode, moderate F33.1 [facility] [address] [address]- 5243 19 Oct, 2016 Cramp of both lower extremities R25.2 [facility] [id number] [place] [address] 55950- 8172 Oct, Leg cramps R25.2 [facility] [id number] [place] [address] 23484- 8169 Oct, Chronic pain syndrome G89.4 [facility] [id number] [place] [address] 58750- 4785 Oct, [facility] [id number] [place] [address] 12768- 8319 Oct, [facility] [id number] [place] [address] 24479- 4357 Oct, Routine gynecological examination Z01.419 and Screening for breast cancer Z12.31 [facility] [id number] [place] [address] 34890- 2719 Sep, Diarrhea R19.7 [facility] [id number] [place] [address] 20851- 2368 Sep, Back pain M54.9 [facility] [id number] [place] [address] 09903- 9861 Sep, [facility] [id number] [place] [address] 34118- 8880 Sep, [facility] [id number] [place] [address] 35226 -9631 August, Xeroderma Q80.9 [facility] [id number] [place] [address] 41451- 8009 August, Dementia without behavioral disturbance, unspecified dementia type F03.90 [facility] [id number] [place] [address] 50073- 0452 August, Chronic pain syndrome G89.4 [place] [id number] [place] [address] 53364- 7236 August, [place] [address] 83366- 4272 August, Hyperlipidemia E78.5 ; Other fatigue R53.83 and Other specified hypotension I95.89 [facility] [address] 93930 -8239 August, Dysuria R30.0 ; Other fatigue R53.83 and Other specified hypotension I95.89 [place] [address] 57431- 8054 August, [place] [address] 81144- 4484 Jul, Pain in left knee M25.562 and Gastroenteritis K52.9 [place] [address] 52725- 1201 Jul, [place] [address] 22150- 4989 Jul, Diarrhea R19.7 [facility] [place] [address] 30275 -5145 Jul, Spider bite, accidental or unintentional, initial encounter T63.301A [place] [address] 22103- 3594 Jul, Primary osteoarthritis of right knee M17.11 and Arthritis M19.90 [place] [address] [id number] [place] [address] 95896- 6807 Jul, Generalized anxiety disorder F41.1 and Major depressive disorder, recurrent episode, moderate F33.1 [place] [address] 42558- 4339 07 Jul, 2016 Type 2 diabetes mellitus with diabetic polyneuropathy E11.42 and Temporal headache R51 [place] [address] 07950- 1143 Jul, Back pain M54.9 [facility] [address] 12390- 4745 Jul, [facility] [address] 54827- 9958 Jul, [facility] [address] 51392- 4101 30 Jun, 2016 Nausea R11.0 [facility] [address] 30231 -4072 Jun, Acute suppurative otitis media of both ears without spontaneous rupture of tympanic membranes, recurrence not specified H66.003 and COPD exacerbation J44.1 [place] [address] 86604- 9803 Jun, Generalized anxiety disorder F41.1 [place] [address] 98807- 3518 16 Jun, 2016 [facility] [address] 38273 -3565 Jun, [facility] [address] 18611 -6563 Jun, Shortness of breath R06.02 and COPD exacerbation J44.1 [place] [address] 85410- 4355 10 Jun, 2016 Eczema, unspecified type L30.9 [facility] [address] 88218- 3499 09 Jun, 2016 [facility] [address] 43704- 9483 24 May, 2016 [place] [address] 84541- 8809 May, Muscle cramping R25.2 [place] [address] [place] [address] 6[address] May, [facility] [address] [id number] [place] [address] 57022- 6971 Apr, Diarrhea R19.7 [facility] [id number] [place] [address] 46532- 0241 Apr, [facility] [address] 47692- 2295 Apr, Chronic pain syndrome G89.4 [place] [address] 68407- 7474 Apr, Cramp of both lower extremities R25.2 and Vascular dementia without behavioral disturbance F01.50 [place] [address] [id number] [place] [address] 66771- 5909 Apr, Type 2 diabetes mellitus with diabetic polyneuropathy E11.42 and Cigarette nicotine dependence without complication F17.210 [place] [address] [id number] [place] [address] 71908- 1420 Mar, Generalized anxiety disorder F41.1 [place] [address] 52657- 9248 Feb, Generalized anxiety disorder F41.1 and Major depressive disorder, recurrent episode, moderate F33.1 [place] [address] [id number] [place] [address] 85901- 8438 Feb, [facility] [id number] [place] [address] 05818 -3557 Feb, Dysuria R30.0 and Acute cystitis with hematuria N30.01 [facility] [address] 29258- 6982 Jan, [facility] [id number] [place] [address] 44543- 1054 Jan, [facility] [address] 42072- 9121 Jan, [facility] [id number] [place] [address] 52868- 8046 Jan, [facility] [id number] [place] [address] 54941 -9971 10 Jan, 2016 Wasp sting, accidental or unintentional, initial encounter T63.461A [facility] [id number] [place] [address] 13177- 4960 06 Jan, 2016 Encounter for immunization Z23 [facility] [address] 21079- 9560 Jan, [facility] [address] 86938- 7732 Jan, [facility] [id number] [place] [address] 70973- 2875 28 Dec, 2015 Generalized anxiety disorder F41.1 and Major depressive disorder, recurrent episode, moderate F33.1 [facility] [id number] [place] [address] 02734- 4079 21 Dec, 2015 Routine gynecological examination Z01.419 ; Postmenopausal Z78.0 ; Screening breast examination Z12.39 ; Osteopenia M85.80 and Breast cancer screening Z12.39 [facility] [id number] [place] [address] 52169- 4809 20 Dec, 2015 [facility] [id number] [place] [address] 99391- 4119 19 Dec, 2015 [facility] [id number] [place] [address] 91713- 1088 16 Dec, 2015 [facility] [id number] [place] [address] 97059- 4118 16 Dec, 2015 [facility] [id number] [place] [address] 57327- 2468 14 Dec, 2015 [facility] [id number] [place] [address] 42959- 8552 06 Dec, 2015 [facility] [address] [place] [address] 1521 Nov, [facility] [address] [place] [address] Nov, Cough R05 ; Other viral agents as the cause of diseases classified elsewhere B97.89 and Acute upper respiratory infection, unspecified J06.9 [facility] [address] [place] [address]- 2776 Nov, [facility] [id number] [place] [address]- 6634 Nov, [facility] [address] [place] [address]- 6634 Nov, [facility] [id number] [place] [address]- 4453 Nov, [facility] [id number] [place] [address]- 0939 Nov, [facility] [address] [place] [address]- 7319 Oct, [facility] [address] [address]- 5544 Oct, [facility] [address] [address]- 6797 Oct, [facility] [address] [address]- 7995 Oct, Chronic pain syndrome G89.4 [facility] [address] [address]- 8339 Sep, Generalized anxiety disorder F41.1 and Major depressive disorder, recurrent episode, moderate F33.1 [facility] [address] [address]- 9800 Sep, [facility] [address] [address]- 8785 Sep, [facility] [id number] [place] [address] 60298- 4385 14 Sep, 2015 Generalized anxiety disorder F41.1 [facility] [id number] [place] [address] 12639- 9580 13 Sep, 2015 Cramp of both lower extremities R25.2 and Cervicalgia M54.2 [place] [address] [id number] [place] [address] 21940- 9129 06 Sep, 2015 Generalized anxiety disorder F41.1 [facility] [id number] [place] [address] 76324- 5090 Sep, [facility] [id number] [place] [address] 97994 -1213 August, Rash R21 ; Itching L29.9 and Allergic response, subsequent encounter T78.40XD [place] [address] [id number] [place] [address] 84374- 2885 August, Primary insomnia F51.01 [facility] [address] [address] [id number] [place] [address] 45401 -1094 August, Rash R21 ; Itching L29.9 and Allergic response, initial encounter T78.40XA [place] [address] [place] [id number] [place] [address] 64775- 3609 August, [place] [address] [id number] [place] [address] 58763- 4490 August, Cramp of both lower extremities R25.2 [place] [address] [place] [address] [id number] [place] [address] 74617- 3582 August, Back pain M54.9 [place] [address] [place] [id number] [place] [address] 61593- 3910 August, [facility] [address] [address] [id number] [place] [address] 36062- 5572 August, [facility] [address] [place] [address]0620 August, Cramp of both lower extremities R25.2 [facility] [id number] [place] [address] 35356- 6220 August, [facility] [id number] [place] [address] 27997- 2035 August, Syncope R55 ; Paroxysmal atrial fibrillation I48.0 ; Dementia without behavioral disturbance, unspecified dementia type F03.90 and Chronic pain syndrome G89.4 [facility] [id number] [place] [address] 81437- 2073 August, Type 2 diabetes mellitus with diabetic polyneuropathy E11.42 and Syncope R55 [facility] [id number] [place] [address] 52147- 4892 Jul, [facility] [id number] [place] [address] 44616- 5275 Jul, [facility] [id number] [place] [address] 17535- 3691 Jul, [facility] [id number] [place] [address] 69839- 9745 Jul, [facility] [id number] [place] [address] 24593- 8236 Jul, [facility] [id number] [place] [address] 76499- 1974 Jul, UTI (urinary tract infection) N39.0 [facility] [address] [address]- 0399 Jul, [facility] [id number] [place] [address] 09609- 2759 Jul, Major depressive disorder, recurrent episode, moderate F33.1 and Generalized anxiety disorder F41.1 [facility] [address] [address]- 7217 Jul, Generalized anxiety disorder F41.1 [place] [address] [address]- 7422 14 Jul, 2015 Diarrhea R19.7 [facility] [id number] [address]- 2666 14 Jul, 2015 [facility] [address] [address]- 2185 Jun, [facility] [id number] [place] [address] 85021 2546 Jun, Eczema L30.9 [facility] [id number] [place] [address] 09069- 0446 Jun, [facility] [id number] [place] [address] 26905- 0888 Jun, COPD (chronic obstructive pulmonary disease) J44.9 [facility] [id number] [place] [address] 88950- 9890 Jun, [facility] [address] [address]- 8834 Jun, Major depressive disorder, recurrent episode, moderate F33.1 and Generalized anxiety disorder F41.1 [facility] [address] [address]- 8564 May, [facility] [address] [address]- 6787 May, UTI (urinary tract infection) N39.0 [facility] [address] [address]- 7183 May, [facility] [address] [address]- 6544 May, [facility] [address] [address]- 3126 May, [facility] [address] [address]- 9947 May, [facility] [address] [address]- 5057 Apr, Major depressive disorder, recurrent episode, moderate F33.1 and Generalized anxiety disorder F41.1 [facility] [address] [address]- 6633 Apr, COPD (chronic obstructive pulmonary disease) J44.9 [facility] [id number] [place] [address] 94433- 7539 Apr, [facility] [id number] [place] [address] 88316- 0784 Apr, Atrial flutter I48.92 [facility] [address] [place] [id number] [place] [address] 88063- 3332 Apr, [facility] [id number] [place] [address] 37170- 3147 Apr, [facility] [id number] [place] [address] 77030- 1395 Mar, [facility] [id number] [place] [address] 75909- 2299 Mar, [facility] [id number] [address]- 3206 Mar, [facility] [address] [address]- 0034 Mar, Hyperlipidemia E78.5 ; Type 2 diabetes mellitus with 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 ; Major depressive disorder, recurrent episode, moderate F33.1 and Chronic pain syndrome G89.4 [facility] [address] [address]- 5634 Mar, [facility] [id number] [address]- 2673 Mar, [facility] [address] [address]- 2539 Mar, [facility] [address] [address]- 8455 Mar, [facility] [id number] [place] [address] 88292- 3547 Feb, COPD (chronic obstructive pulmonary disease) J44.9 and Back pain M54.9 [facility] [id number] [place] [address] 27277- 6646 Feb, [facility] [id number] [place] [address] 37074- 7512 Feb, [facility] [id number] [place] [address] 45602- 4362 Feb, [facility] [id number] [place] [address] 98081- 1681 Feb, [facility] [id number] [place] [address] 93913- 5046 Feb, [facility] [id number] [place] [address] 46269- 7592 Feb, [facility] [id number] [place] [address] 18794- 6333 Feb, [facility] [id number] [place] [address] 02948- 8664 Feb, [facility] [id number] [place] [address] 14055- 9629 Feb, Diabetes E11.9 ; Back pain M54.9 and COPD (chronic obstructive pulmonary disease) J44.9 [facility] [address] [address]- 5990 Jan, [facility] [id number] [place] [address] 98157- 1957 Jan, Major depression, recurrent F33.9 and Generalized anxiety disorder F41.1 [facility] [id number] [place] [address] 19517- 3616 Jan, Chronic pain G89.29 [facility] [address] [address]- 1830 Jan, [facility] [id number] [place] [address] 43011- 0903 Jan, [facility] [id number] [place] [address] 32530- 2563 Jan, [facility] [id number] [place] [address] 39685- 3675 Jan, [facility] [id number] [place] [address] 94940- 3777 Jan, Nicotine dependence F17.200 [facility] [id number] [place] [address] 63253- 9877 Jan, Nicotine dependence F17.200 and Back pain M54.9 [facility] [id number] [place] [address] 47515- 2688 Jan, [facility] [id number] [place] [address] 05785- 7376 28 Dec, 2014 [facility] [id number] [place] [address] 40998- 9260 25 Dec, 2014 Anxiety, generalized 300.02 and Major depression, recurrent 296.30 [facility] [id number] [place] [address] 01525- 9899 24 Dec, 2014 [facility] [id number] [place] [address] 62217- 7557 21 Sep, 2014 [facility] [id number] [place] [address] 06800- 9022 17 Dec, 2014 [facility] [id number] [place] [address] 44709- 6551 15 Dec, 2014 [facility] [id number] [place] [address] 63709- 6936 14 Dec, 2014 [facility] [address] [address]- 7578 11 Dec, 2014 [facility] [address] [address]- 5769 Dec, [facility] [id number] [place] [address] 11855- 8819 08 Dec, 2014 Skin tear 879.8 [facility] [id number] [place] [address] 55365- 6263 Dec, Routine gynecological examination V72.31 ; Breast cancer screening V76.10 and Family history of breast cancer in first degree relative V16.3 [facility] [id number] [place] [address] 46589- 4932 Dec, [facility] [id number] [place] [address] 02390- 8605 Dec, [facility] [id number] [place] [address] 22568- 8684 Nov, [facility] [id number] [place] [address] 04734- 9691 Nov, [facility] [id number] [place] [address] 92163- 2831 Nov, Poor balance 781.99 and Vascular dementia, uncomplicated 290.40 [facility] [id number] [place] [address] 69350- 1384 Nov, [facility] [id number] [place] [address] 07036- 0215 Nov, Major depression, recurrent 296.30 and Anxiety, generalized 300.02 [facility] [id number] [place] [address] 69402- 6882 Nov, [facility] [id number] [place] [address] 96524- 0956 Nov, [facility] [id number] [place] [address] 38006- 2523 Nov, [facility] [address] [address]- 8315 Nov, [facility] [id number] [place] [address] 86976- 4599 Nov, Vascular dementia, uncomplicated 290.40 and Lumbago 724.2 [facility] [id number] [address]- 9429 Nov, [facility] [id number] [place] [address] 75238- 7667 Nov, [facility] [id number] [place] [address] 06881- 1819 Nov, [facility] [id number] [place] [address] 41438- 6333 Oct, [facility] [id number] [place] [address] 61552- 2620 Oct, [facility] [id number] [address]- 6668 Oct, [facility] [id number] [place] [address] 61629- 9510 Oct, COPD (chronic obstructive pulmonary disease) 496 and Hyperlipidemia 272.4 [facility] [address] [address]- 7390 Oct, Major depression, recurrent 296.30 and Anxiety, generalized 300.02 [facility] [address] [address]- 5881 Oct, [facility] [address] [address]- 4672 Oct, [facility] [address] [address]- 8010 Oct, [facility] [id number] [address]- 6706 Sep, Lumbago 724.2 and Anxiety state, unspecified 300.00 [facility] [address] [address]- 9659 Sep, [facility] [id number] [place] [address] 11721- 2539 Sep, [facility] [id number] [address]- 0366 August, [facility] [id number] [place] [address] 39325- 3496 August, Major depression, recurrent 296.30 ; Anxiety, generalized 300.02 and No condition on Bon Air II V71.09 [facility] [id number] [place] [address] 44119- 7713 August, [facility] [id number] [place] [address] 30873- 3835 August, [facility] [id number] [place] [address] 29703- 8732 Jul, [facility] [id number] [address]- 4731 Jul, [facility] [id number] [place] [address] 18822- 9795 Jul, [facility] [address] [address]- 3732 Jun, [facility] [address] [address]- 9984 Jun, [facility] [address] [address]- 4643 Jun, [facility] [id number] [place] [address], [place] [address]- 5702 Jun, [facility] [address] [address]- 2791 Jun, [facility] [id number] [place] [address] 38572- 8036 23 Jun, 2014 [facility] [place] [facility] [address] [id number] [place] [address]- 3675 23 Jun, 2014 [facility] [place] [facility] [address] [id number] [place] [address]- 5947 17 Jun, 2014 [facility] [place] [facility] [address] [id number] [place] [address]- 2671 13 Jun, 2014 [facility] [place] [facility] [address] [id number] [place] [address]- 5131 13 Jun, 2014 [facility] [place] [facility] [address] [id number] [place] [address]- 4635 10 Jun, 2014 [facility] [place] [facility] [address] [id number] [place] [address] 10 Jun, 2014 [facility] [place] [facility] [address] [facility] [id number] [place] [address] Jun, [facility] [place] [facility] [address] [id number] [place] [address] Jun, [facility] [place] [facility] [address] [id number] [place] [address] Jun, [facility] [place] [facility] [address] [id number] [place] [address] Jun, [facility] [place] [facility] [address] [id number] [place] [address] May, 2014 [facility] [place] [facility] [address] [id number] [place] [address]- [address] May, 2014 [facility] [place] [facility] [address] [id number] [place] [address] May, 2014 [facility] [place] [facility] [address] [id number] [place] [address] May, 2014 [facility] [place] [facility] [address] [facility] [id number] [place] [address] May, 2014 [facility] [place] [facility] [address] [id number] [place] [address] May, 2014 [facility] [place] [facility] [address] [id number] [place] [address] May, 2014 [facility] [place] [facility] [address] [id number] [place] [address] May, 2014 [facility] [place] [facility] [address] [id number] [place] [address] May, 2014 [facility] [place] [facility] [address] [id number] [place] [address]- [address] May, 2014 [facility] [place] [facility] [address] [id number] [place] [address]- [address] May, 2014 [facility] [place] [facility] [address] [facility] [id number] [place] [address] May, 2014 [facility] [place] [facility] [address] [id number] [place] [address] May, 2014 [facility] [place] [facility] [address] [id number] [place] [address]- [address] May, 2014 [facility] [place] [facility] [address] [facility] [id number] [place] [address] Apr, [facility] [place] [facility] [address] [id number] [place] [address] Apr, [facility] [place] [facility] [address] [id number] [place] [address] Apr, [facility] [place] [facility] [address] [id number] [place] [address] Apr, [facility] [place] [facility] [address] [id number] [place] [address] Apr, [facility] [place] [facility] [address] [id number] [place] [address] 1799 Apr, [facility] [place] [facility] [address] [id number] [place] [address] Apr, [facility] [address] [id number] [place] [address] 9032 Apr, [facility] [place] [facility] [address] [id number] [place] [address]- 9230 Apr, [facility] [place] [facility] [address] [id number] [place] [address] 8381 Apr, [facility] [place] [facility] [address] [id number] [place] [address]- 3598 Apr, [facility] [place] [facility] [address] [id number] [place] [address] 1813 Apr, [facility] [place] [facility] [address] [id number] [place] [address]- 6397 Mar, [facility] [address] [id number] [place] [address]- 7029 31 Mar, 2014 [facility] [place] [facility] [address] [id number] [place] [address]- 1783 30 Mar, 2014 [facility] [place] [facility] [address] [id number] [place] [address]- 4459 30 Mar, 2014 [facility] [place] [facility] [address] [id number] [place] [address]- 7381 29 Mar, 2014 [facility] [place] [facility] [address] [id number] [place] [address]- 4935 29 Mar, 2014 [facility] [place] [facility] [address] [id number] [place] [address]- 0140 19 Mar, 2014 [facility] [place] [facility] [address] [id number] [place] [address]- 8105 Mar, [facility] [place] [facility] [address] [id number] [place] [address]- 1140 15 Mar, 2014 [facility] [place] [facility] [address] [id number] [place] [address]- 5166 15 Mar, 2014 [facility] [place] [facility] [address] [id number] [place] [address]- 4796 15 Mar, 2014 [facility] [place] [facility] [address] [id number] [place] [address]- 4066 Mar, [facility] [place] [facility] [address] [id number] [place] [address]- 7526 Mar, [facility] [place] [facility] [address] [id number] [place] [address]- 0716 Mar, [facility] [place] [facility] [address] [id number] [place] [address]- 7973 Mar, [facility] [place] [facility] [address] [id number] [place] [address]- 5636 Mar, [facility] [place] [facility] [address] [id number] [place] [address]- 4324 Mar, [facility] [place] [facility] [address] [id number] [place] [address]- 0468 Mar, [facility] [place] [facility] [address] [id number] [place] [address]- 8894 Mar, [facility] [place] [facility] [address] [id number] [place] [address]- 5725 Mar, [facility] [place] [facility] [address] [id number] [place] [address]- 6949 Feb, [facility] [place] [facility] [address] [id number] [place] [address]- 0803 Feb, [facility] [place] [facility] [address] [id number] [place] [address]- 9652 Feb, [facility] [place] [facility] [address] [id number] [place] [address]- 3316 Feb, [facility] [place] [facility] [address] [id number] [place] [address]- 9883 Feb, [facility] [place] [facility] [address] [id number] [place] [address]- 8696 Feb, [facility] [place] [facility] [address] [id number] [place] [address]- 7841 Feb, [facility] [place] [facility] [address] [id number] [place] [address]- 2744 Feb, [facility] [place] [facility] [address] [id number] [place] [address]- 7147 Feb, [facility] [place] [facility] [address] [id number] [address] 8142 Feb, [facility] [place] [facility] [address] [id number] [place] [address]- 8058 Feb, [facility] [place] [facility] [address] [id number] [place] [address]- 1220 Feb, [facility] [place] [facility] [address] [id number] [place] [address]- 7007 Feb, [facility] [place] [facility] [address] [id number] [place] [address]- 7603 Feb, [facility] [place] [facility] [address] [id number] [place] [address]- 7958 Feb, [facility] [place] [facility] [address] [id number] [place] [address]- 8309 Feb, [facility] [place] [facility] [address] [id number] [place] [address]- 8017 Feb, [facility] [place] [facility] [address] [id number] [place] [address]- 2722 Jan, [facility] [place] [facility] [address] [id number] [place] [address]- 6294 Jan, [facility] [place] [facility] [address] [id number] [place] [address]- 2068 Jan, [facility] [place] [facility] [address] [id number] [place] [address]- 9842 Jan, [facility] [place] [facility] [address] [id number] [place] [address]- 5625 Jan, [facility] [place] [facility] [address] [id number] [place] [address]- 8705 Jan, [facility] [place] [facility] [address] [id number] [place] [address]- 8971 Jan, [facility] [place] [facility] [address] [id number] [place] [address]- 4967 Jan, [facility] [place] [facility] [address] [id number] [place] [address]- 2799 Jan, [facility] [place] [facility] [address] [id number] [place] [address]- 8060 Jan, [facility] [place] [facility] [address] [id number] [place] [address]- 4256 Jan, [facility] [place] [facility] [address] [id number] [place] [address]- 2778 Dec, [facility] [place] [facility] [address] [id number] [place] [address]- 5337 Dec, [facility] [place] [facility] [address] [id number] [place] [address]- 4457 Nov, [facility] [place] [facility] [address] [id number] [place] [address]- 0153 Nov, [facility] [place] [facility] [address] [id number] [place] [address]- 6938 Nov, [facility] [place] [facility] [address] [id number] [place] [address]- 4769 Nov, [facility] [place] [facility] [address] [id number] [place] [address]- 4168 Nov, [facility] [place] [facility] [address] [id number] [place] [address]- 1154 Nov, [facility] [place] [facility] [address] [id number] [place] [address]- 4148 Nov, [facility] [place] [facility] [address] [id number] [place] [address]- 7247 Oct, 2013 [facility] [place] [facility] [address] [id number] [place] [address]- 9072 Oct, [facility] [place] [facility] [address] [id number] [place] [address]- 7523 Oct, [facility] [place] [facility] [address] [id number] [place] [address]- 5251 Oct, [facility] [place] [facility] [address] [id number] [place] [address]- 1178 Sep, [facility] [place] [facility] [address] [id number] [place] [address]- 1833 Sep, [facility] [place] [facility] [address] [id number] [place] [address]- 4141 Sep, [facility] [place] [facility] [address] [id number] [place] [address]- 6405 Sep, [facility] [place] [facility] [address] [id number] [place] [address]- 1431 Sep, [facility] [place] [facility] [address] [id number] [place] [address]- 9680 Sep, [facility] [place] [facility] [address] [id number] [place] [address]- 3768 Sep, [facility] [place] [facility] [address] [id number] [place] [address]- 1342 Sep, [facility] [place] [facility] [address] [id number] [place] [address]- 4253 Sep, [facility] [place] [facility] [address] [id number] [place] [address]- 3093 Sep, [facility] [place] [facility] [address] [id number] [place] [address]- 7994 05 Sep, 2013 [facility] [place] [facility] [address] [id number] [place] [address]- 0585 Sep, [facility] [place] [facility] [address] [id number] [place] [address]- 3144 Sep, [facility] [place] [facility] [address] [id number] [place] [address]- 7148 Sep, [facility] [place] [facility] [address] [id number] [place] [address]- 6380 August, [facility] [place] [facility] [address] [id number] [place] [address]- 8703 August, [facility] [place] [facility] [address] [id number] [place] [address]- 4248 August, [facility] [place] [facility] [address] [id number] [place] [address]- 2310 August, [facility] [place] [facility] [address] [id number] [place] [address]- 7617 August, [facility] [place] [facility] [address] [id number] [place] [address]- 8817 August, [facility] [place] [facility] [address] [id number] [place] [address]- 9225 August, [facility] [place] [facility] [address] [id number] [place] [address]- 5491 August, [facility] [place] [facility] [address] [id number] [place] [address]- 1209 August, [facility] [place] [facility] [address] [id number] [place] [address]- 5943 August, [facility] [place] [facility] [address] [id number] [place] [address]- 2340 August, [facility] [place] [facility] [address] [id number] [place] [address]- 9548 August, [facility] [place] [facility] [address] [id number] [place] [address]- 1925 August, [facility] [place] [facility] [address] [id number] [place] [address]- 6307 August, [facility] [address] [id number] [place] [address]- 0397 August, [facility] [place] [facility] [address] [id number] [place] [address]- 3796 August, [facility] [address] [id number] [place] [address]- 2972 August, [facility] [address] [id number] [place] [address]- 0687 August, [facility] [address] [id number] [place] [address]- 9964 August, [facility] [address] [id number] [place] [address]- 5098 Jul, [facility] [address] [id number] [place] [address]- 6777 Jul, [facility] [address] [id number] [place] [address]- 8616 Jul, [facility] [address] [id number] [place] [address]- 7339 Jul, [facility] [address] [id number] [place] [address]- 7258 Jun, [facility] [place] [facility] [address] [id number] [place] [address]- 7212 Jun, [facility] [place] [facility] [address] [id number] [place] [address]- 1384 Jun, [facility] [place] [facility] [address] [id number] [place] [address]- 9621 Jun, [facility] [place] [facility] [address] [id number] [place] [address]- 8456 Jun, [facility] [place] [facility] [address] [id number] [place] [id number] 9399 Jun, [facility] [place] [facility] [address] [id number] [place] [address]- 5541 14 Jun, 2013 [facility] [place] [facility] [address] [id number] [place] [address]- 7466 14 Jun, 2013 [facility] [place] [facility] [address] [id number] [place] [address]- 0681 Jun, [facility] [place] [facility] [address] [id number] [place] [address]- 2444 Jun, [facility] [place] [facility] [address] [id number] [place] [address]- 3926 May, [facility] [place] [facility] [address] [id number] [place] [address]- 6743 May, [facility] [place] [facility] [address] [facility] [id number] [place] [address]- 1539 May, [facility] [place] [facility] [address] [id number] [place] [address]- 5049 May, [facility] [place] [facility] [address] [facility] [id number] [place] [address]- 5311 May, [facility] [place] [facility] [address] [facility] [id number] [place] [address]- 6799 May, [facility] [place] [facility] [address] [facility] [id number] [place] [address]- 9469 May, [facility] [place] [facility] [address] [facility] [id number] [place] [address]- 9333 May, [facility] [place] [facility] [address] [id number] [place] [address]- 3804 May, [facility] [place] [facility] [address] [facility] [id number] [place] [address]- 3379 18 May, 2013 [facility] [place] [facility] [address] [facility] [id number] [place] [address]- 3810 May, [facility] [place] [facility] [address] [id number] [place] [address]- 3771 17 May, 2013 [facility] [place] [facility] [address] [id number] [place] [address]- 1177 May, [facility] [place] [facility] [address] [id number] [place] [address]- 2376 May, [facility] [place] [facility] [address] [id number] [place] [address]- 9234 May, [facility] [place] [facility] [address] [id number] [place] [address]- 4405 May, [facility] [place] [facility] [address] [id number] [place] [address]155 May, [facility] [place] [facility] [address] [id number] [place] [address]- 1709 Apr, [facility] [place] [facility] [address] [id number] [place] [address]- 8842 Apr, [facility] [place] [facility] [address] [id number] [place] [address]- 4972 Apr, [facility] [place] [facility] [address] [id number] [place] [address]- 5502 Apr, [facility] [place] [facility] [address] [facility] [id number] [place] [address]- 3132 Apr, [facility] [place] [facility] [address] [id number] [place] [address]- 5200 Apr, [facility] [place] [facility] [address] [id number] [place] [address]- 0072 Apr, [facility] [place] [facility] [address] [id number] [place] [address]- 0236 Mar, [facility] [place] [facility] [address] [id number] [place] [address]- 2406 Mar, [facility] [place] [facility] [address] [id number] [place] [address]- 2196 Mar, [facility] [address] [id number] [place] [address]- 9064 Mar, [facility] [place] [facility] [address] [id number] [place] [address]- 4754 Mar, [facility] [address] [id number] [place] [address]- 9018 Mar, [facility] [place] [facility] [address] [id number] [place] [address]- 4655 Mar, [facility] [address] [id number] [place] [address]- 5991 Mar, [facility] [address] [id number] [place] [address]- 2233 Mar, [facility] [address] [id number] [place] [address]- 1960 Mar, [facility] [place] [facility] [address] [id number] [place] [address]- 7262 Mar, [facility] [address] [id number] [place] [address]- 7601 Feb, [facility] [place] [facility] [address] [id number] [place] [address]- 5193 Feb, [facility] [address] [id number] [place] [address]- 3912 Feb, [facility] [place] [facility] [address] [id number] [place] [address]- 8145 Feb, [facility] [place] [facility] [address] [id number] [place] [address]- 4843 Feb, [facility] [place] [facility] [address] [id number] [place] [address]- 4904 Feb, [facility] [place] [facility] [address] [id number] [place] [address]- 3851 15 Feb, 2013 [facility] [place] [facility] [address] [id number] [place] [address]- 7597 14 Feb, 2013 [facility] [place] [facility] [address] [id number] [place] [address]- 3209 14 Feb, 2013 [facility] [place] [facility] [address] [id number] [place] [address]- 3794 13 Feb, 2013 [facility] [place] [facility] [address] [id number] [place] [address]- 9423 13 Feb, 2013 [facility] [place] [facility] [address] [id number] [place] [address]- 6590 12 Feb, 2013 [facility] [place] [facility] [address] [id number] [place] [address]- 0136 Feb, [facility] [place] [facility] [address] [id number] [place] [address]- 1159 Feb, [facility] [place] [facility] [address] [id number] [place] [address]- 6476 Feb, [facility] [place] [facility] [address] [id number] [place] [address]- 3052 Feb, [facility] [place] [facility] [address] [id number] [place] [address]- 8372 Jan, [facility] [place] [facility] [address] [id number] [place] [address]- 9492 Jan, [facility] [place] [facility] [address] [id number] [place] [address]- 4636 24 Jan, 2013 [facility] [place] [facility] [address] [id number] [place] [address]- 9278 Jan, [facility] [place] [facility] [address] [id number] [place] [address]- 3393 Jan, [facility] [place] [facility] [address] [id number] [place] [address]- 8201 Jan, [facility] [place] [facility] [address] [id number] [place] [address]- 9372 Jan, [facility] [place] [facility] [address] [id number] [place] [address]- 3126 Jan, [facility] [place] [facility] [address] [id number] [place] [address]- 4023 10 Jan, 2013 [facility] [place] [facility] [address] [id number] [place] [address]- 3004 27 Dec, 2012 [facility] [place] [facility] [address] [id number] [place] [address]- 5225 20 Dec, 2012 [facility] [place] [facility] [address] [id number] [place] [address]- 9973 Dec, [facility] [place] [facility] [address] [id number] [place] [address]- 9350 10 Dec, 2012 [facility] [place] [facility] [address] [id number] [place] [address]- 5276 04 Dec, 2012 [facility] [place] [facility] [address] [id number] [place] [address]- 3553 Dec, [facility] [place] [facility] [address] [id number] [place] [address]- 5340 Nov, [facility] [place] [facility] [address] [id number] [place] [address]- 7307 Nov, [facility] [place] [facility] [address] [id number] [place] [address]- 6731 Nov, [facility] [place] [facility] [address] [id number] [place] [address]- 4330 Nov, [facility] [place] [facility] [address] [id number] [place] [address]- 1798 Nov, [facility] [place] [facility] [address] [id number] [place] [address]- 2439 Nov, [facility] [place] [facility] [address] [id number] [place] [address]- 6877 Nov, [facility] [place] [facility] [address] [id number] [place] [address]- 9551 15 Nov, 2012 [facility] [place] [facility] [address] [id number] [place] [address] 14 Nov, 2012 [facility] [place] [facility] [address] [id number] [place] [address] Nov, [facility] [place] [facility] [address] [id number] [place] [address] Oct, [facility] [place] [facility] [address] [id number] [place] [address] Oct, [facility] [place] [facility] [address] [id number] [place] [address] Oct, [facility] [place] [facility] [address] [id number] [place] [address] Oct, [facility] [place] [facility] [address] [id number] [place] [address] 2916 Oct, [facility] [place] [facility] [address] [id number] [place] [address] Oct, [facility] [place] [facility] [address] [id number] [place] [address] Oct, [facility] [place] [facility] [address] [id number] [place] [address]696 Oct, [facility] [place] [facility] [address] [id number] [place] [address] 40[address] Sep, [facility] [place] [facility] [address] [id number] [place] [address] Sep, [facility] [place] [facility] [address] [id number] [place] [address] 1675 Sep, [facility] [place] [facility] [address] [id number] [place] [address] 0198 Sep, [facility] [place] [facility] [address] [id number] [place] [address] 2413 Sep, [facility] [place] [facility] [address] [id number] [place] [address] 39[address] Sep, [facility] [address] [id number] [place] [address] Sep, [facility] [address] [id number] [place] [address] Sep, [facility] [address] [id number] [place] [address] August, [facility] [address] [id number] [place] [address] August, [facility] [address] [id number] [place] [address] August, [facility] [address] [id number] [place] [address] 0297 August, [facility] [address] [id number] [place] [address] 1407 August, [facility] [address] [id number] [place] [address] 8079 Jul, [facility] [address] [id number] [place] [address] Jul, [facility] [address] [id number] [place] [address] 7910 Jul, [facility] [address] [id number] [place] [address] 0258 Jul, [facility] [address] [id number] [place] [address] Jul, [facility] [place] [facility] [address] [id number] [place] [id number] Jun, [facility] [place] [facility] [address] [id number] [place] [address] Jun, [facility] [address] [id number] [place] [address] 37[address] 15 Jun, 2012 [facility] [address] [id number] [place] [address]46 14 Jun, 2012 [facility] [place] [facility] [address] [id number] [place] [address] 7498 Jun, [facility] [place] [facility] [address] [id number] [place] [address] 6465 Jun, [facility] [place] [facility] [address] [id number] [place] [address] 7291 08 Jun, 2012 [facility] [place] [facility] [address] [id number] [place] [address] 4014 Jun, [facility] [place] [facility] [address] [id number] [place] [address] 7364 Jun, [facility] [place] [facility] [address] [id number] [place] [address] 34[address] May, [facility] [place] [facility] [address] [id number] [place] [address] May, [facility] [place] [facility] [address] [id number] [place] [address] May, [facility] [place] [facility] [address] [id number] [place] [address] 1669 May, [facility] [place] [facility] [address] [id number] [address] Apr, [facility] [place] [facility] [address] [id number] [place] [address] 3989 Apr, [facility] [place] [facility] [address] [id number] [place] [address] 245[address] Apr, [facility] [place] [facility] [address] [id number] [place] [address]- 8834 Apr, [facility] [place] [facility] [address] [id number] [place] [address]- 3785 Apr, [facility] [place] [facility] [address] [id number] [place] [address] 2852 Apr, [facility] [address] [id number] [place] [address] 8157 Apr, [facility] [address] [id number] [place] [address] 39[address] Mar, [facility] [address] [place] [id number] Mar, [facility] [address] [id number] [place] [address] 8318 Mar, [facility] [address] [id number] [place] [address] 7332 Mar, [facility] [address] [id number] [place] [address] 0999 Mar, [facility] [address] [id number] [place] [address]- 3892 Mar, [facility] [address] [id number] [place] [address]- 5945 Mar, [facility] [address] [id number] [place] [address] 395[address] Mar, [facility] [address] [id number] [place] [address]- 4910 Mar, [facility] [address] [id number] [place] [address]- 0626 Mar, [facility] [address] [id number] [place] [address]- 9471 Mar, [facility] [address] [id number] [place] [address]- 0848 Mar, [facility] [address] [id number] [place] [address]- 3462 Mar, [facility] [address] [id number] [place] [address]- 1033 Mar, [facility] [place] [facility] [address] [id number] [place] [address]- 9415 Mar, [facility] [place] [facility] [address] [id number] [place] [address]- 5344 Mar, [facility] [place] [facility] [address] [id number] [place] [address]- 5107 Mar, [facility] [place] [facility] [address] [id number] [place] [address]- 8221 Feb, [facility] [place] [facility] [address] [id number] [place] [address]- 3866 Feb, [facility] [place] [facility] [address] [id number] [place] [address]- 9044 Feb, [facility] [place] [facility] [address] [id number] [place] [address]- 2238 Feb, [facility] [place] [facility] [address] [id number] [place] [address]- 0318 Feb, [facility] [place] [facility] [address] [id number] [place] [address]- 0492 Feb, [facility] [place] [facility] [address] [id number] [place] [address]- 9851 Feb, [facility] [place] [facility] [address] [id number] [place] [address]- 4957 Feb, [facility] [place] [facility] [address] [id number] [place] [address]- 8410 Feb, [facility] [place] [facility] [address] [id number] [place] [address]- 8907 Feb, [facility] [place] [facility] [address] [id number] [place] [address]- 0169 Feb, [facility] [place] [facility] [address] [id number] [place] [address]- 0688 Feb, [facility] [place] [facility] [address] [id number] [address]- 8266 Feb, [facility] [place] [facility] [address] [id number] [place] [address] Feb, [facility] [place] [facility] [address] [id number] [place] [address]- 3511 Feb, [facility] [place] [facility] [address] [facility] [id number] [place] [address] Feb, [facility] [place] [facility] [address] [id number] [place] [address] Jan, [facility] [place] [facility] [address] [id number] [place] [address] Jan, [facility] [place] [facility] [address] [id number] [place] [address] 2440 Jan, [facility] [place] [facility] [address] [id number] [place] [address] 6727 Jan, [facility] [place] [facility] [address] [id number] [address] Jan, [facility] [place] [facility] [address] [id number] [place] [address] Jan, [facility] [place] [facility] [address] [id number] [place] [address] Jan, [facility] [place] [facility] [address] [id number] [place] [address] 69[address] Jan, [facility] [place] [facility] [address] [id number] [place] [address] Jan, [facility] [place] [facility] [address] [id number] [place] [address] 6[address] Jan, [facility] [place] [facility] [address] [facility] [id number] [place] [address] 16[address] Jan, [facility] [place] [facility] [address] [facility] [id number] [place] [address] 8[address] Jan, [facility] [place] [facility] [address] [id number] [place] [address] 3494 11 Jan, 2012 [facility] [place] [facility] [address] [id number] [place] [address] 5577 11 Jan, 2012 [facility] [place] [facility] [address] [id number] [place] [address]- 3646 08 Jan, 2012 [facility] [place] [facility] [address] [id number] [place] [address]- 9264 05 Jan, 2012 [facility] [place] [facility] [address] [id number] [place] [address]- 4678 04 Jan, 2012 [facility] [place] [facility] [address] [id number] [place] [address] 7503 21 Dec, 2011 [facility] [place] [facility] [address] [id number] [place] [address]- 0282 20 Dec, 2011 [facility] [place] [facility] [address] [id number] [place] [address] 5735 18 Dec, 2011 [facility] [place] [facility] [address] [id number] [place] [address] 7913 18 Dec, 2011 [facility] [place] [facility] [address] [id number] [place] [address]- 0371 10 Dec, 2011 [facility] [place] [facility] [address] [facility] [id number] [place] [address]- 254 10 Dec, 2011 [facility] [place] [facility] [address] [id number] [place] [address] 2546 10 Dec, 2011 [facility] [place] [facility] [address] [id number] [place] [address]- 254 07 Dec, 2011 [facility] [place] [facility] [address] [id number] [place] [address] 7712 30 Nov, 2011 [facility] [place] [facility] [address] [id number] [place] [address] 2543 Nov, [facility] [place] [facility] [address] [id number] [place] [address] 7719 Nov, [facility] [place] [facility] [address] [id number] [place] [address] 4735 Nov, [facility] [place] [facility] [address] [id number] [place] [address] 1421 Nov, [facility] [place] [facility] [address] [id number] [place] [address] 4997 Nov, [facility] [place] [facility] [address] [id number] [place] [address] 9034 Oct, [facility] [place] [facility] [address] [id number] [place] [address] 6219 Oct, [facility] [place] [facility] [address] [id number] [place] [address] 5274 Oct, [facility] [place] [facility] [address] [id number] [place] [address] 6224 Oct, [facility] [place] [facility] [address] [id number] [place] [address] 1164 Oct, [facility] [place] [facility] [address] [id number] [place] [address] 1090 Oct, [facility] [place] [facility] [address] [id number] [place] [address] 7335 Oct, [facility] [place] [facility] [address] [id number] [place] [address] 0407 Sep, [facility] [place] [facility] [address] [id number] [place] [address] 9018 Sep, [facility] [place] [facility] [address] [id number] [place] [address] 2715 Sep, [facility] [place] [facility] [address] [id number] [place] [address]- 1788 Sep, [facility] [place] [facility] [address] [id number] [place] [address] 2935 Sep, [facility] [place] [facility] [address] [id number] [place] [address]- 4607 15 Sep, 2011 [facility] [address] [id number] [place] [address] 6697 14 Sep, 2011 [facility] [place] [facility] [address] [id number] [place] [address] 1539 Sep, [facility] [place] [facility] [address] [id number] [place] [address]- 9602 05 Sep, 2011 [facility] [place] [facility] [address] [id number] [place] [address]- 7697 04 Sep, 2011 [facility] [place] [facility] [address] [id number] [place] [address] 8024 August, [facility] [place] [facility] [address] [id number] [place] [address] 3852 August, [facility] [address] [id number] [place] [address] 3783 August, [facility] [place] [facility] [address] [id number] [place] [address]- 1670 August, [facility] [place] [facility] [address] [id number] [place] [address]- 8065 August, [facility] [place] [facility] [address] [id number] [place] [address] 9397 Jul, [facility] [place] [facility] [address] [id number] [place] [address]- 3676 Jul, [facility] [place] [facility] [address] [id number] [place] [address]- 4622 25 Jul, 2011 [facility] [place] [facility] [address] [id number] [place] [address]- 1469 17 Jul, 2011 [facility] [place] [facility] [address] [id number] [place] [address]- 1561 11 Jul, 2011 [facility] [place] [facility] [address] [facility] [id number] [place] [address] 4547 Jul, [facility] [place] [facility] [address] [id number] [place] [address]- 1045 Jul, [facility] [place] [facility] [address] [id number] [place] [address]- 9325 Jun, [facility] [place] [facility] [address] [id number] [place] [address]- 6796 Jun, [facility] [place] [facility] [address] [id number] [place] [address]- 3262 Jun, [facility] [place] [facility] [address] [id number] [place] [address]- 0556 Jun, [facility] [place] [facility] [address] [id number] [place] [address]- 3760 Jun, [facility] [place] [facility] [address] [id number] [place] [address]- 0263 May, [facility] [place] [facility] [address] [id number] [place] [address]- 4304 May, [facility] [place] [facility] [address] [id number] [place] [address]- 1323 May, [facility] [place] [facility] [address] [id number] [place] [address]- 2259 May, [facility] [place] [facility] [address] [id number] [place] [address]- 5928 May, [facility] [place] [facility] [address] [id number] [place] [address]- 0952 May, [facility] [place] [facility] [address] [id number] [place] [address]- 5835 Apr, [facility] [place] [facility] [address] [id number] [place] [address]- 6626 Mar, [facility] [place] [facility] [address] [id number] [place] [address]- 3037 Feb, [facility] [place] [facility] [address] [id number] [address] 9720 07 Feb, 2011 [facility] [place] [facility] [address] [id number] [place] [address]- 0749 Feb, [facility] [place] [facility] [address] [id number] [place] [address] Feb, [facility] [place] [facility] [address] [id number] [place] [address]- 5030 31 Jan, 2011 [facility] [place] [facility] [address] [id number] [place] [address]- 1943 27 Jan, 2011 [facility] [place] [facility] [address] [id number] [place] [address]- 9441 Jan, [facility] [place] [facility] [address] [id number] [place] [address]- 7746 24 Jan, 2011 [facility] [place] [facility] [address] [id number] [place] [address]- 7483 14 Jan, 2011 [facility] [place] [facility] [address] [id number] [place] [address]- 0497 Dec, [facility] [place] [facility] [address] [id number] [place] [address]- 7060 Oct, [facility] [place] [facility] [address] [id number] [place] [address]- 5214 August, [facility] [place] [facility] [address] [id number] [address] 6649 29 Mar, 2010 [facility] [place] [facility] [address] [id number] [place] [address]- 0255 27 Mar, 2010 [facility] [place] [facility] [address] [id number] [place] [address]- 3626 16 Mar, 2010 [facility] [place] [facility] [address] [id number] [place] [address]53 15 Mar, 2010 [facility] [place] [facility] [address] [id number] [place] [address]- 5897 15 Mar, 2010 [facility] [place] [facility] [address] [id number] [place] [address]- 1739 08 Mar, 2010 [facility] [address] [id number] [place] [address]- 5819 Mar, [facility] [place] [facility] [address] [id number] [place] [address]- 5885 Feb, [facility] [address] [id number] [place] [address]- 0221 24 Feb, 2010 [facility] [place] [facility] [address] [id number] [place] [address]- 8031 15 Feb, 2010 [facility] [address] [id number] [place] [address]- 4771 Jan, [facility] [place] [facility] [address] [id number] [place] [address]- 0514 Jan, [facility] [address] [id number] [place] [address]- 8961 Jan, [facility] [address] [id number] [place] [address]- 4608 Nov, [facility] [place] [facility] [address] [id number] [place] [address]- 3717 Sep, [facility] [address] [facility] [id number] [place] [address]- 1756 August, [facility] [place] [facility] [address] [id number] [place] [address]- 3556 30 Mar, 2009 [facility] [place] [facility] [address] [id number] [place] [address]- 9478 07 Mar, 2009 [facility] [place] [facility] [address] [id number] [place] [address]- 2949 17 Feb, 2009 [facility] [place] [facility] [address] [id number] [place] [address]- 3839 10 Feb, 2009 [facility] [place] [facility] [address] [id number] [place] [address]- 5211 Feb, [facility] [address] [id number] [address] 8619 Feb, [facility] [id number] [address] 9989 Feb, [facility] [id number] [address]- 1717 Jan, [facility] [id number] [address]- 8897 Jan, [facility] [id number] [address]- 0413 Jan, [facility] [id number] [address]- 5529 Jan, [facility] [id number] [address]- 5859 Nov, [facility] [id number] [address]- 0038 Sep, [facility] [id number] [address]- 9704 August, [facility] [id number] [address]- 4100 Jul, [facility] [address] [id number] [address] 4416 May, IMMUNIZATIONS No Known Immunizations SOCIAL HISTORY Never Assessed REASON FOR VISIT Mammogram order PLAN OF CARE VITAL SIGNS MEDICATIONS Unknown [...] Knee Surgery 07/16/17 Hospitalization History [facility] [place]- left hand/wrist swelling 10/09/2017
[2018-02-10 11:15] VITALS: BP 153/99
[2018-02-10] MEDS ORDERED: MIDAZOLAM 2 MG/2 ML (VERSED) VIAL ONE (11:18)
[2018-02-10] MEDS ORDERED: PROPOFOL INJECTION 50 ML IV ONE (11:18)
[2018-02-10] MEDS ORDERED: SUCR1TAB36 PO (11:24)
--- NOTE | 2018-02-10 11:31 | Progress Note-Pre Operative ---
Pre-Operative Progress Note H&P Reviewed The H&P was reviewed, patient examined and no changes noted. Date Seen by Provider: Feb 10, 2018 Time Seen by Provider: 11: Date H&P Reviewed: Feb 10, 2018 Time H&P Reviewed: 11: Pre-Operative Diagnosis: abdominal pain epigastric, dysphagia, screening colonoscopy, gerd IVAN TAVERA DO Feb 10, 2018 11:31
[2018-02-10 11:35] VITALS: BP 150/95
[2018-02-10 11:45] VITALS: BP 150/95
[2018-02-10 12:55] VITALS: BP 118/68
--- NOTE | 2018-02-10 13:21 | Progress Note-Post Operative ---
Post-Operative Progess Note Surgeon (s)/Income Auditor (s) Surgeon IVAN TAVERA DO Income Auditor: na Pre-Operative Diagnosis abdominal pain epigastric, dysphagia, screening colonoscopy, gerd Post-Operative Diagnosis gastritis, colon polyps Procedure & Operative Findings Date of Procedure 02/10/18 Procedure Performed/Findings egd c biopsies, colonoscopy with hot bx polypectomy x2 Anesthesia Type per mda Estimated Blood Loss Estimated blood loss (mL): na Specimens/Packing Specimens Removed antrum, body, ge, transverse colon polyp and descending colon polyp IVAN TAVERA DO Feb 10, 2018 13:21
[2018-02-10] MEDS ORDERED: PANT40TA2 PO (13:23)
--- NOTE | 2018-02-10 13:24 | Discharge Inst-Simple/Standard ---
Discharge Inst-Standard Discharge Medications New, Converted or Re-Newed RX: RX on Chart Patient Instructions/Follow Up Plan of Care/Instructions/FU: 2 weeks Hien Activity as Tolerated: Yes Discharge Diet: Regular Diet IVAN TAVERA DO Feb 10, 2018 13:24
[2018-02-10 13:25] VITALS: BP 108/71
--- NOTE | 2018-02-10 14:14 | Anesthesia-General Post-Op ---
MAC Patient Condition Mental Status/LOC: Same as Preop Cardiovascular: Satisfactory Nausea/Vomiting: Absent Respiratory: Satisfactory Pain: Controlled Complications: Absent Post Op Complications Complications None Follow Up Care/Instructions Patient Instructions None needed. Anesthesiology Discharge Order Discharge Order Patient is doing well, no complaints, stable vital signs, no apparent adverse anesthesia problems. No complications reported per nursing. MERI ESPINOSA CRNA Feb 10, 2018 14:14
--- NOTE | 2018-02-10 21:55 | OPERATIVE REPORT ---
DATE OF SERVICE: 02/10/2018 PREOPERATIVE DIAGNOSES: Abdominal pain, epigastric, dysphagia, screening colonoscopy. POSTOPERATIVE DIAGNOSES: Gastritis, colon polyps. PROCEDURE: EGD with biopsies, colonoscopy with hot biopsy polypectomy x2. SURGEON: Ivan Stanford DO ANESTHESIA: Per MDA. ESTIMATED BLOOD LOSS: None. COMPLICATIONS: None. INDICATIONS: The patient is a 62-year-old female with epigastric abdominal pain, gastroesophageal reflux disease and having difficulty swallowing and also needing screening colonoscopy. She understands risks and benefits of procedure and wished to proceed with procedure. Consent was signed on the chart. DESCRIPTION OF PROCEDURE: The patient was taken to the endoscopy suite, placed in left lateral recumbent position. Timeout was performed. Scope was inserted in mouth, down the esophagus, stomach and into the duodenum without difficulty. There were no polyps, masses or ulcerations within the duodenum. Scope was slowly retracted back into the stomach, which was further insufflated. Stomach had erythematous changes throughout the entire stomach. Biopsy of the antrum and body were obtained. Scope was retroflexed noting no other pathology. Scope was returned to its normal position, slowly withdrawn to the distal esophagus, which had some slight erythematous changes, which biopsies of the GE junction were obtained. No polyps, masses or ulcerations. Scope was slowly retracted back until completely removed. Digital rectal exam was performed. There were no palpable polyps, masses or ulcerations. Scope was inserted in the rectum and advanced all the way to the cecum with minimal difficulty. Prep was adequate with irrigation and suction. Scope was then slowly retracted back. There were no polyps, masses or ulcerations within the cecum, ascending colon. In the transverse colon, a small polyp was present, which hot biopsy polypectomy was performed. Scope was continuously retracted back. The descending colon where there was another small polyp, which hot biopsy polypectomy was performed. Scope was continuously retracted back, no polyps, masses or ulcerations in the sigmoid or rectum. Once in the rectum, scope was retroflexed noting no other pathology. Scope was returned to its normal position, slowly withdrawn until completely removed. The patient tolerated procedure well without any complications. She was taken to recovery room in stable condition. RECOMMENDATIONS: The patient will need a repeat colonoscopy in 5 years due to a history of polyps. The patient due to gastritis will be started on Protonix 40 mg daily. We will see if this does have any better with her symptoms. She will follow up in 2 weeks. If she has any problems prior to that, she should be reevaluated at that time. Job ID: [id number] DocumentID: [id number] Dictated Date: 02/10/2018 13:28:45 Custody Assistant Date: 02/10/2018 21:55:15 Dictated By: IVAN STANFORD DO
== END 2018-02-10 13:40 | disposition home or self-care (01) ==
LOC: ENDO 09:47
PROVIDERS: ATTEND Surgery
DX: Z12.11 Encounter for screening for malignant neoplasm of colon (principal); D12.4 Benign neoplasm of descending colon; K63.5 Polyp of colon; K29.70 Gastritis, unspecified, without bleeding; K21.9 Gastro-esophageal reflux disease without esophagitis; E11.40 Type 2 diabetes mellitus with diabetic neuropathy, unspecified; I25.10 Atherosclerotic heart disease of native coronary artery without angina pectoris; I10 Essential (primary) hypertension; I48.91 Unspecified atrial fibrillation; J45.909 Unspecified asthma, uncomplicated; J43.9 Emphysema, unspecified; F17.210 Nicotine dependence, cigarettes, uncomplicated; Z79.01 Long term (current) use of anticoagulants; Z79.899 Other long term (current) drug therapy
CPT/HCPCS: 88305

== ENCOUNTER 2018-02-19 10:27 | Emergency (ER) | payer MEDICARE, MEDICAID ==
[~2018-02-19] VITALS: Ht 160 cm; Wt 74.8 kg
[~2018-02-19 10:27] MED LIST changes: +SUCR1TAB36 PO
--- NOTE | 2018-02-19 11:23 | ED GU-Female ---
General Stated Complaint: CATHETER ISSUES History of Present Illness Date Seen by Provider: Feb 19, 2018 Time Seen by Provider: 11:10 Initial Comments 62-year-old female who has been doing self catheters approximately every 3 hours for the last 8 months. She's had Botox injections at [facility] by urologist. She reports inability to insert the catheter since noon yesterday. Timing/Duration: yesterday Severity/Quality: moderate Location: suprapubic Radiation: none Activities at Onset: none Associated Symptoms: abdominal pain, other (urinary retention) Allergies and Home Medications Allergies Coded Allergies: bacitracin (Verified Allergy, Intermediate, "I BREAK OUT IN A RASH ALL OVER.", 02/09/18) neomycin (Verified Allergy, Intermediate, "I BREAK OUT IN A RASH ALL OVER. ", 02/09/18) polymyxin B (Verified Allergy, Intermediate, "I BREAK OUT IN A RASH ALL OVER.", 02/09/18) ibuprofen (Verified Allergy, Mild, RASH, 02/09/18) naproxen (Verified Allergy, Mild, RASH, 02/09/18) Home Medications Albuterol Sulfate 2.5 Mg/3 Ml Vial.neb, 2.5 MG NEB Q6H PRN for SHORTNESS OF BREATH, (Reported) Albuterol Sulfate 1 Puff Puff, 2 PUFF IH Q4H PRN for SHORTNESS OF BREATH, ( Reported) 1 PUFF = 90 MCG Alendronate Sodium 70 Mg Tablet, 70 MG PO Sa, (Reported) Apixaban 5 Mg Tablet, 5 MG PO BID, (Reported) Aripiprazole 10 Mg Tablet, 10 MG PO DAILY, (Reported) Baclofen 20 Mg Tablet, 20 MG PO TID, (Reported) Budesonide/Formoterol Fumarate 10.2 Gm Hfa.aer.ad, 2 PUFF IH BID, (Reported) Buspirone HCl 5 Mg Tablet, 5 MG PO Q8H PRN for ANXIETY, (Reported) Cetirizine HCl 10 Mg Tablet, 10 MG PO DAILY, (Reported) Clonazepam 1 Mg Tablet, 1 MG PO HS, (Reported) Colesevelam HCl 625 Mg Tablet, 1,250 MG PO BID, (Reported) TAKES 2 (625MG) TABLETS Diltiazem HCl 240 Mg Cap.er.deg, 240 MG PO DAILY, (Reported) Diphenoxylate HCl/Atropine 1 Each Tablet, 2 TAB PO QID PRN for DIARRHEA, ( Reported) Donepezil HCl 10 Mg Tablet, 10 MG PO HS, (Reported) Ergocalciferol (Vitamin D2) 50,000 Unit Capsule, 50,000 UNIT PO Escalera, (Reported) Fluticasone Propionate 16 Gm [place].susp, 2 SPRAYS NS BID, (Reported) Gabapentin 600 Mg Tablet, 600 MG PO TID, (Reported) Lamotrigine 25 Mg Tablet, 75 MG PO HS, (Reported) TAKES 3 (25MG) TABLETS Magnesium Oxide 400 Mg Tablet, 400 MG PO DAILY, (Reported) Memantine HCl 10 Mg Tablet, 10 MG PO HS, (Reported) Mirtazapine 45 Mg Tablet, 45 MG PO HS, (Reported) Montelukast Sodium 10 Mg Tablet, 10 MG PO HS, (Reported) Mv,Ca,Min/Iron Fum/FA/Vit K 1 Each Tablet, 1 TAB PO DAILY, (Reported) Nitroglycerin 0.4 Mg Tab.subl, 0.4 MG PO UD PRN for CHEST PAIN, (Reported) Ondansetron 4 Mg Tab.rapdis, 4 MG SL Q4H PRN for NAUSEA/VOMITING-1ST LINE, ( Reported) Oxybutynin Chloride 10 Mg Tab.er.24, 10 MG PO DAILY, (Reported) Pantoprazole Sodium 40 Mg Tablet.dr, 40 MG PO DAILY Prescribed by: IVAN TAVERA on 02/10/18 1323 Primidone 250 Mg Tablet, 250 MG PO TID, (Reported) Ranitidine HCl 150 Mg Tablet, 150 MG PO BID, (Reported) Rifaximin 550 Mg Tablet, 550 MG PO TID, (Reported) Ropinirole HCl 2 Mg Tablet, 2 MG PO HS, (Reported) Sertraline HCl 100 Mg Tablet, 100 MG PO DAILY, (Reported) Simvastatin 20 Mg Tablet, 20 MG PO HS, (Reported) Sucralfate 1 Gm Tablet, 1 GM PO QID, (Reported) Sumatriptan Succinate 100 Mg Tablet, 100 MG PO UD PRN for MIGRAINE, (Reported) Tiotropium [place] 1 Inh Aerp, 1 CAP IH HS, (Reported) Trazodone HCl 150 Mg Tablet, 150 MG PO HS, (Reported) Patient Home Medication List Home Medication List Reviewed: Yes Review of Systems Review of Systems Constitutional: no symptoms reported, see HPI Genitourinary: see HPI, other (retention) All Other Systemes Reviewed Negative Unless Noted: Yes Past Svrdlcx-Ujwfbs-Oprtys Hx Past Med/Social Hx: Reviewed Nursing Past Med/Soc Hx Patient Social History Type Used: Cigarettes Former Smoker, Quit: Dec 05, 2016 2nd Hand Smoke Exposure: Yes Recent Hopitalizations: No Immunizations Up To Date Tetanus Booster (TDap): Unknown PED Vaccines UTD: No Date of Pneumonia Vaccine: Nov 11, 2016 Date of Influenza Vaccine: Dec 20, 2017 Seasonal Allergies Seasonal Allergies: Yes Past Medical History Surgeries: Yes (NECK, HIATAL HERNIA, CARDIAC ABLATION, BILAT ELBOW, BILAT CTR, BLADDER SLIN) Abdominal, Appendectomy, Bladder Surgery, Cardiac, Gallbladder, Joint Replacement, Orthopedic, Pancreatic, Tubal Ligation Respiratory: Yes (OXYGEN AT NIGHT AND PRN ) Asthma, COPD, Emphysema Cardiac: Yes (CARDIAC ABLATION 2015) Atrial Fibrillation, Coronary Artery Disease, High Cholesterol, Hypertension, Irregular Heartbeat, Palpitations, Peripheral Vascular Neurological: Yes (PARESTHESIAS OF BILAT LOWER EXT DUE TO FORAMINAL STENOSIS) Dementia, Headaches /Migraines, Neuropathy 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 Disorders: No 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 Disorders: Denies 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 Sexually Transmitted Disease: No HIV/AIDS: No Genitourinary: Yes (OVERACTIVE BLADDER) UTI-Chronic Gastrointestinal: Yes (FREQ DIARRHEA, DYSPHAGIA) Gastroesophageal Reflux, Celaya's Esophagus, Hiatal Hernia, Ulcer Musculoskeletal: Yes (CHRONIC NECK AND BACK PAIN, CHRONIC HIP PAIN) Degenerate Disk Disease, Osteoporosis, Arthritis, Fibromyalgia, Chronic Back Pain Endocrine: Yes (DIET CONTROLLED NIDDM--NO LONGER ON MEDICATIONS; THYROID NODULES) Hypothyroidsim, Diabetes, Non-Insulin dep HEENT: Yes (DENTURES) Dysphagia, Glaucoma Loss of Vision: Bilateral Hearing Impairment: Hard of Hearing Cancer: No Psychosocial: Yes (ATTEMPTED SUICIDE > 26 YRS AGO) Anxiety, Suicide Attempts, Depression Integumentary: Yes Psoriasis Blood Disorders: No Adverse Reaction/Blood Tranf: No Family Medical History Cardiovascular disease G8 BROTHER (TRIPLE BYPASS) Diabetes mellitus 19 MOTHER FH: COPD (chronic obstructive pulmonary disease) 19 MOTHER FH: breast cancer 19 MOTHER FHx: brain cancer 19 FATHER No Pertinent Family Hx Physical Exam Vital Signs Vital Signs - First Documented 02/19/18 11:01 Temp 98.3 Pulse 82 Resp 16 B/P (MAP) 115/68 (84) Pulse Ox 93 O2 Delivery Room Air Capillary Refill : Height, Weight, BMI Height: 5'3.00" Weight: 166lbs. 0.0oz. [id number]; 29.4 BMI Method:Stated General Appearance: WD/WN, no apparent distress Cardiovascular: normal peripheral pulses, regular rate, rhythm Respiratory: chest non-tender, lungs clear, normal breath sounds Gastrointestinal: normal bowel sounds, soft, distended (bladder) Neurologic/Psychiatric: no motor/sensory deficits, alert, normal mood/affect, oriented x 3 Skin: normal color, warm/dry Progress/Results/Core Measures Suspected Sepsis SIRS Temperature: Pulse: Respiratory Rate: Blood Pressure / Mean: Results/Orders Lab Results Laboratory Tests Test 02/19/18 11:35 Range/Units Urine Color YELLOW Urine Clarity CLEAR Urine pH 5 5-9 Urine Specific Rosalie 1.010 L 1.016-1.022 Urine Protein 1+ H NEGATIVE Urine Glucose (UA) 4+ H NEGATIVE Urine Ketones NEGATIVE NEGATIVE Urine Nitrite NEGATIVE NEGATIVE Urine Bilirubin NEGATIVE NEGATIVE Urine Urobilinogen NORMAL NORMAL MG/DL Urine Leukocyte Esterase NEGATIVE NEGATIVE Urine RBC (Auto) 2+ H NEGATIVE Urine RBC NONE /HPF Urine WBC NONE /HPF Urine Squamous Epithelial Cells NONE /HPF Urine Crystals NONE /LPF Urine Bacteria NEGATIVE /HPF Urine Casts NONE /LPF Urine Mucus NEGATIVE /LPF Urine Culture Indicated NO My Orders Orders - SHUBHAM CODY Crain Cath (02/19/18 11:23) Ua Culture If Indicated (02/19/18 11:37) Vital Signs/I&O 02/19/18 02/19/18 11:01 12:15 Temp 98.3 98.3 Pulse 82 80 Resp 16 14 B/P (MAP) 115/68 (84) 112/70 (84) Pulse Ox 93 93 O2 Delivery Room Air Room Air Capillary Refill : Progress Note : Time: 11:10 Progress Note patient seen and evaluated, initial evaluation completed. Recommended Crain catheter to leg bag until she could be followed up with her urologist in [place]. Will obtain UA. [address], a proximally 600 ML's of clear urine. UA essentially normal. Discharge instructions and return precautions reviewed with the patient and her caregiver. All questions answered. Departure Impression Primary Impression: Urinary retention Disposition: 01 HOME, SELF-CARE Condition: Improved Departure-Patient Inst. Decision time for Depature: 11:25 Referrals: VIPIN GOODMAN DO (PCP/Family) Primary Care Physician Patient Instructions: Crain Catheter, Female, How to Care for Your Crain Catheter, Female Add. Discharge Instructions: Notify your urologist at [facility] and follow up there. Leave catheter in place, until follow up with your urologist. Empty catheter bag every 6-8 hours or more frequently, as needed. Return to emergency department for new, urgent health care problems. All discharge instructions reviewed with patient and/or family. Voiced understanding. SHUBHAM CODY Feb 19, 2018 11:23
[2018-02-19 11:44] LABS: BILIRUBIN,URINE NEGATIVE (NEGATIVE); CLARITY,URINE CLEAR; COLOR,URINE YELLOW; GLUCOSE, URINE (UA) 4+ (NEGATIVE); KETONES,URINE NEGATIVE (NEGATIVE); LEUKOCYTE ESTERASE ,URINE NEGATIVE (NEGATIVE); NITRITE,URINE NEGATIVE (NEGATIVE); PH,URINE 5 (5-9); PROTEIN,URINE 1+ (NEGATIVE); UROBILINOGEN,URINE NORMAL (NORMAL)
[2018-02-19 11:56] LABS: BACTERIA,URINE NEGATIVE /HPF
[2018-02-19 12:15] VITALS: BP 112/70
== END 2018-02-19 12:19 | disposition home or self-care (01) ==
LOC: EDUNIT# 10:27 → ER 10:28
DX: T83.098A Other mechanical complication of other urinary catheter, initial encounter (principal); R33.9 Retention of urine, unspecified; J43.9 Emphysema, unspecified; I48.91 Unspecified atrial fibrillation; I25.10 Atherosclerotic heart disease of native coronary artery without angina pectoris; E78.00 Pure hypercholesterolemia, unspecified; I10 Essential (primary) hypertension; E11.59 Type 2 diabetes mellitus with other circulatory complications; I73.9 Peripheral vascular disease, unspecified; F03.90 Unspecified dementia, unspecified severity, without behavioral disturbance, psychotic disturbance, mood disturbance, and anxiety; G43.909 Migraine, unspecified, not intractable, without status migrainosus; E11.40 Type 2 diabetes mellitus with diabetic neuropathy, unspecified; F41.9 Anxiety disorder, unspecified; F32.9 Major depressive disorder, single episode, unspecified; K21.9 Gastro-esophageal reflux disease without esophagitis; E03.9 Hypothyroidism, unspecified; Z87.440 Personal history of urinary (tract) infections; Z88.8 Allergy status to other drugs, medicaments and biological substances; Z91.5 Personal history of self-harm; Z88.6 Allergy status to analgesic agent; Z82.49 Family history of ischemic heart disease and other diseases of the circulatory system; Z80.3 Family history of malignant neoplasm of breast; Z80.8 Family history of malignant neoplasm of other organs or systems; Z88.2 Allergy status to sulfonamides; Z79.51 Long term (current) use of inhaled steroids; Z79.01 Long term (current) use of anticoagulants; Z87.891 Personal history of nicotine dependence; Z87.19 Personal history of other diseases of the digestive system; Z90.89 Acquired absence of other organs; Z98.51 Tubal ligation status
CPT/HCPCS: 51702; 81000

== ENCOUNTER 2018-03-16 12:32 | Outpatient (RCR) | payer MEDICARE, MEDICAID ==
[2018-01-19 13:05] VITALS: BP 110/73
[2018-02-16 13:05] VITALS: BP 116/70
[2018-02-16] MEDS: OMALIZUMAB SUB-Q 150 MG (XOLAIR) VIAL SQ SCH (13:05)
[~2018-03-16] VITALS: Ht 160 cm; Wt 75.3 kg
[2018-03-16 12:32] VITALS: BP 101/74
[~2018-03-16 12:32] MED LIST changes: +OMALIZUMAB SUB-Q 150 MG (XOLAIR) VIAL SQ SCH
[2018-03-16] MEDS: OMALIZUMAB SUB-Q 150 MG (XOLAIR) VIAL SQ SCH (12:46)
== END 2018-04-19 | disposition home or self-care (01) ==
LOC: SDC 12:32
PROVIDERS: ATTEND Internal Medicine Pulmonary Disease
DX: J45.50 Severe persistent asthma, uncomplicated (principal)
CPT/HCPCS: 96372

== ENCOUNTER → 2018-03-19 | Outpatient (CLI) | payer MEDICARE, MEDICAID ==
[~2018-03-19] MED LIST changes: -OMALIZUMAB SUB-Q 150 MG (XOLAIR) VIAL SQ SCH
--- NOTE | 2018-03-19 13:46 | Diagnostic Imaging Report ---
INDICATION: Postmenopausal screening for osteoporosis. COMPARISON: 11/28/2016. FINDINGS: AP Spine L1-L4: [BMD (g/cm2): 1.101] [T-Score: -0.8] [Z-Score: 0.4] [BMD Previous: 1.009] [BMD % Change: 9.1] LT Hip Neck: [BMD (g/cm2): 0.731] [T-Score: -2.2] [Z-Score: -1.0] LT Hip Total: [BMD (g/cm2):0.796] [T-Score:-1.7] [Z-Score: -0.8] [BMD Previous: 0.759] [BMD % Change: N/A] RT Hip Neck: [BMD (g/cm2):0.584] [T-Score:-3.3] [Z-Score:-2.0] RT Hip Total: [BMD (g/cm2):0.692] [T-score:-2.5] [Z-Score:-1.6] [BMD Previous:0.682] [BMD % Change:N/A] *Indicates significant change from prior examination based on 95% confidence level. World Health Organization criteria for BMD interpretation classify patients as Normal (T-score at or above -1.0), Osteopenic (T-score between -1.0 and -2.5) or Osteoporotic (T-score at or below -2.5). LIMITATIONS AND MODIFICATION: None. FRACTURE RISK (FRAX SCORE): The ten year probability of (%): Major Osteoporotic Fracture: [36] Hip Fracture: [12] IMPRESSION: 1. Osteopenia (Low bone mass). 2. No Significant change in bone mineral density since prior examination. 3. See below National Osteoporosis Foundation guidelines on when to potentially initiate pharmacologic therapy. Based on the National Osteoporosis Foundation Guidelines, pharmacologic treatment should be initiated in any of the following, unless clinical conditions suggest otherwise: * Any patient with prior fragility fracture of the hip or vertebrae. A spine fracture indicates 5X risk for subsequent spine fracture and 2X risk for subsequent hip fracture. * Osteoporosis (T-score <-2.5). * Postmenopausal women and men age 50 and older with low bone mass/osteopenia (T-score between -1.0 and -2.5) by DXA and 10-year major osteoporotic fracture greater than 20% or a 10-year probability of hip fracture greater than 3%. These fracture risks are supplied above in the FRAX score, if applicable. * Clinician judgement and/or patient preferences may indicate treatment for people with 10-year fracture probabilities above or below these levels. Dictated by: Dictated on workstation # [id number]
== END ==
LOC: RAD 10:34
PROVIDERS: ATTEND Nurse Practitioner Family
DX: Z13.820 Encounter for screening for osteoporosis (principal); M85.89 Other specified disorders of bone density and structure, multiple sites; Z78.0 Asymptomatic menopausal state
CPT/HCPCS: 77080

== ENCOUNTER 2018-04-17 11:22 | Outpatient (RCR) | payer OTHER, MEDICARE, MEDICAID ==
--- NOTE | 2018-04-14 12:30 | NUR ---
PT ARRIVED FOR SCHEDULED XOLAIR INJECTION, HOWEVER, DR'S ORDER ON FILE IS NOT VALID. PT STATES SHE HAS TRANSFERRED HER CARE TO DR LUCIANO, SO THE XOLAIR ODER WILL NEED TO COME FROM HIM. UNABLE TO CONTACT 'S OFFICE DUE TO BEING CLOSED FOR LUNCH HOUR. PT OPTED TO RETURN ON 04/17/18 FOR THE INJECTION. WILL OBTAIN AN ORDER FROM DR LUCIANO DURING THE INTERIM.
[~2018-04-17] VITALS: Ht 160 cm; Wt 75.3 kg
[~2018-04-17 11:22] MED LIST changes: -ALEN70TA47 PO; +ALEN70TA5 PO; -GABA600T2 PO; +GBPN600T PO; -LAMO25TA PO; +LAMO25TA8 PO
[2018-04-17 11:30] VITALS: BP 108/72
[2018-04-17] MEDS ORDERED: OMALIZUMAB SUB-Q 150 MG (XOLAIR) VIAL SQ SCH (11:45)
[2018-05-06] MEDS ORDERED: PRD20T PO (15:47)
[2018-05-06] MEDS ORDERED: METH-313 PO (15:47)
[2018-05-14] MEDS ORDERED: LEVO5TAB12 PO (08:28)
[2018-05-14] MEDS ORDERED: VENL75CA93 PO (08:28)
[2018-05-14] MEDS ORDERED: CALC-823 PO (08:28)
[2018-05-14] MEDS ORDERED: EREN70AU INJ (08:28)
[2018-05-14] MEDS ORDERED: FURO20TA4 PO (08:28)
[2018-05-14] MEDS ORDERED: RIFA550T PO (08:28)
[2018-05-21] MEDS ORDERED: OXYB5TAB9 PO (14:55)
[2018-05-21] MEDS ORDERED: GABA-490 PO (14:55)
[2018-05-21] MEDS ORDERED: TIZA2TAB3 PO (14:55)
[2018-05-21] MEDS ORDERED: DILT240C90 PO (14:55)
[2018-05-21] MEDS ORDERED: PANT40TA3 PO (14:55)
[2018-05-21] MEDS ORDERED: BACL20TA PO (14:55)
[2018-05-21] MEDS ORDERED: CLON1TAB13 PO (14:55)
[2018-05-21] MEDS ORDERED: PRD10T PO (14:55)
[2018-05-21] MEDS ORDERED: DAPA5TAB PO (14:55)
[2018-05-21] MEDS ORDERED: SUCR1TAB PO (14:55)
[2018-05-21] MEDS ORDERED: LAMO25TA8 PO (14:55)
[2018-05-21] MEDS ORDERED: RANI300T4 PO (14:55)
[2018-05-21] MEDS ORDERED: SUMA100T3 PO (14:55)
[2018-05-21] MEDS ORDERED: ALBU18HF2 INH (14:55)
[2018-05-21] MEDS ORDERED: OMEP40CA36 PO (15:09)
[2018-05-21] MEDS ORDERED: TRAZ-190 PO (15:09)
[2018-05-27] MEDS ORDERED: CEFD300C3 PO (06:57)
[2018-05-27] MEDS ORDERED: OXYC1TAB87 PO (07:27)
== END 2018-06-25 10:12 | disposition home or self-care (01) ==
LOC: SDC 11:22
PROVIDERS: ATTEND Nurse Practitioner
DX: J45.50 Severe persistent asthma, uncomplicated (principal)
CPT/HCPCS: 96372

== ENCOUNTER 2018-04-24 09:34 | Outpatient (RCR) | payer OTHER, MEDICARE, MEDICAID ==
--- NOTE | 2018-04-10 10:15 | NUR ---
PT. TEACHING DONE ON HOW TO SWITCH OVER FROM LEG BAG DURING THE DAY TIME TO NIGHT BAG. PT. STATED SHE UNDERSTOOD.
[2018-04-10 10:20] VITALS: BP 112/76
[~2018-04-24] VITALS: Ht 160 cm; Wt 75.3 kg
[~2018-04-24 09:34] MED LIST changes: -ALEN70TA47 PO; +ALEN70TA5 PO; -GABA600T2 PO; +GBPN600T PO; -LAMO25TA PO; +LAMO25TA8 PO
[2018-04-24 09:35] VITALS: BP 100/61
[2018-05-06] MEDS ORDERED: PRD20T PO (15:47)
[2018-05-06] MEDS ORDERED: METH-313 PO (15:47)
[2018-05-14] MEDS ORDERED: CALC-823 PO (08:28)
[2018-05-14] MEDS ORDERED: RIFA550T PO (08:28)
[2018-05-14] MEDS ORDERED: LEVO5TAB12 PO (08:28)
[2018-05-14] MEDS ORDERED: EREN70AU INJ (08:28)
[2018-05-14] MEDS ORDERED: FURO20TA4 PO (08:28)
[2018-05-14] MEDS ORDERED: VENL75CA93 PO (08:28)
[2018-05-21] MEDS ORDERED: PRD10T PO (14:55)
[2018-05-21] MEDS ORDERED: DAPA5TAB PO (14:55)
[2018-05-21] MEDS ORDERED: TIZA2TAB3 PO (14:55)
[2018-05-21] MEDS ORDERED: RANI300T4 PO (14:55)
[2018-05-21] MEDS ORDERED: SUMA100T3 PO (14:55)
[2018-05-21] MEDS ORDERED: DILT240C90 PO (14:55)
[2018-05-21] MEDS ORDERED: OXYB5TAB9 PO (14:55)
[2018-05-21] MEDS ORDERED: PANT40TA3 PO (14:55)
[2018-05-21] MEDS ORDERED: BACL20TA PO (14:55)
[2018-05-21] MEDS ORDERED: CLON1TAB13 PO (14:55)
[2018-05-21] MEDS ORDERED: LAMO25TA8 PO (14:55)
[2018-05-21] MEDS ORDERED: GABA-490 PO (14:55)
[2018-05-21] MEDS ORDERED: SUCR1TAB PO (14:55)
[2018-05-21] MEDS ORDERED: ALBU18HF2 INH (14:55)
[2018-05-21] MEDS ORDERED: OMEP40CA36 PO (15:09)
[2018-05-21] MEDS ORDERED: TRAZ-190 PO (15:09)
[2018-05-27] MEDS ORDERED: CEFD300C3 PO (06:57)
[2018-05-27] MEDS ORDERED: OXYC1TAB87 PO (07:27)
== END 2018-06-25 10:12 | disposition home or self-care (01) ==
LOC: SDC 09:34
PROVIDERS: ATTEND Urology
DX: Z96.0 Presence of urogenital implants (principal); N31.9 Neuromuscular dysfunction of bladder, unspecified
CPT/HCPCS: 99211

== ENCOUNTER → 2018-04-24 | Outpatient (CLI) | payer MEDICARE, MEDICAID ==
[~2018-04-24] MED LIST changes: +ALEN70TA47 PO; -ALEN70TA5 PO; +GABA600T2 PO; -GBPN600T PO; +LAMO25TA PO; -LAMO25TA8 PO
[2018-04-25 04:01] LABS: ALTERNARIA MOLD RAST <0.35 kU/L (<0.35); RAGWEED RAST <0.35 kU/L (<0.35)
== END ==
LOC: LAB 09:30
PROVIDERS: ATTEND Nurse Practitioner Family
DX: J43.8 Other emphysema (principal); R06.02 Shortness of breath; J45.909 Unspecified asthma, uncomplicated; R53.83 Other fatigue; Z72.0 Tobacco use
CPT/HCPCS: 36415; 86003

== ENCOUNTER 2018-05-06 15:32 | Emergency (ER) | payer MEDICARE, MEDICAID ==
[~2018-05-06] VITALS: Ht 160 cm; Wt 78.9 kg
[~2018-05-06 15:32] MED LIST changes: +LAMO25TA PO; -LAMO25TA8 PO
[2018-05-06] MEDS ORDERED: METH-313 PO (15:47)
[2018-05-06] MEDS ORDERED: PRD20T PO (15:47)
--- NOTE | 2018-05-06 15:48 | ED Back Pain ---
General Stated Complaint: LOWER BACK PAIN Source of Information: Patient Exam Limitations: No Limitations History of Present Illness Date Seen by Provider: May 06, 2018 Time Seen by Provider: 15:44 Initial Comments To ER with reports of midline low back pain radiates down both legs but most on the right. This began yesterday, at least became worse than usual yesterday though this is a chronic problem for her. No fevers or chills. No falls or injuries. [facility] reports a total of 22 prescribers with controlled substances filled at 7 pharmacies over the past year. Location: Lumbar Spine Timing/Duration: 1-2 Days Severity: Moderate Pain/Injury Location: Back Associated Symptoms: lower back pain Allergies and Home Medications Allergies Coded Allergies: bacitracin (Verified Allergy, Intermediate, "I BREAK OUT IN A RASH ALL OVER.", 02/09/18) neomycin (Verified Allergy, Intermediate, "I BREAK OUT IN A RASH ALL OVER. ", 02/09/18) polymyxin B (Verified Allergy, Intermediate, "I BREAK OUT IN A RASH ALL OVER.", 02/09/18) ibuprofen (Verified Allergy, Mild, RASH, 02/09/18) naproxen (Verified Allergy, Mild, RASH, 02/09/18) Home Medications Albuterol Sulfate 2.5 Mg/3 Ml Vial.neb, 2.5 MG NEB Q6H PRN for SHORTNESS OF BREATH, (Reported) Albuterol Sulfate 1 Puff Puff, 2 PUFF IH Q4H PRN for SHORTNESS OF BREATH, ( Reported) 1 PUFF = 90 MCG Alendronate Sodium 70 Mg Tablet, 70 MG PO Sa, (Reported) Apixaban 5 Mg Tablet, 5 MG PO BID, (Reported) Aripiprazole 10 Mg Tablet, 10 MG PO DAILY, (Reported) Baclofen 20 Mg Tablet, 20 MG PO TID, (Reported) Budesonide/Formoterol Fumarate 10.2 Gm Hfa.aer.ad, 2 PUFF IH BID, (Reported) Buspirone HCl 5 Mg Tablet, 5 MG PO Q8H PRN for ANXIETY, (Reported) Cetirizine HCl 10 Mg Tablet, 10 MG PO DAILY, (Reported) Clonazepam 1 Mg Tablet, 1 MG PO HS, (Reported) Colesevelam HCl 625 Mg Tablet, 1,250 MG PO BID, (Reported) TAKES 2 (625MG) TABLETS Diltiazem HCl 240 Mg Cap.er.deg, 240 MG PO DAILY, (Reported) Diphenoxylate HCl/Atropine 1 Each Tablet, 2 TAB PO QID PRN for DIARRHEA, ( Reported) Donepezil HCl 10 Mg Tablet, 10 MG PO HS, (Reported) Ergocalciferol (Vitamin D2) 50,000 Unit Capsule, 50,000 UNIT PO Escalera, (Reported) Fluticasone Propionate 16 Gm [place].susp, 2 SPRAYS NS BID, (Reported) Gabapentin 600 Mg Tablet, 600 MG PO TID, (Reported) Lamotrigine 25 Mg Tablet, 75 MG PO HS, (Reported) TAKES 3 (25MG) TABLETS Magnesium Oxide 400 Mg Tablet, 400 MG PO DAILY, (Reported) Memantine HCl 10 Mg Tablet, 10 MG PO HS, (Reported) Mirtazapine 45 Mg Tablet, 45 MG PO HS, (Reported) Montelukast Sodium 10 Mg Tablet, 10 MG PO HS, (Reported) Mv,Ca,Min/Iron Fum/FA/Vit K 1 Each Tablet, 1 TAB PO DAILY, (Reported) Nitroglycerin 0.4 Mg Tab.subl, 0.4 MG PO UD PRN for CHEST PAIN, (Reported) Ondansetron 4 Mg Tab.rapdis, 4 MG SL Q4H PRN for NAUSEA/VOMITING-1ST LINE, ( Reported) Oxybutynin Chloride 10 Mg Tab.er.24, 10 MG PO DAILY, (Reported) Pantoprazole Sodium 40 Mg Tablet.dr, 40 MG PO DAILY Prescribed by: IVAN TAVERA on 02/10/18 1323 Primidone 250 Mg Tablet, 250 MG PO TID, (Reported) Ranitidine HCl 150 Mg Tablet, 150 MG PO BID, (Reported) Rifaximin 550 Mg Tablet, 550 MG PO TID, (Reported) Ropinirole HCl 2 Mg Tablet, 2 MG PO HS, (Reported) Sertraline HCl 100 Mg Tablet, 100 MG PO DAILY, (Reported) Simvastatin 20 Mg Tablet, 20 MG PO HS, (Reported) Sucralfate 1 Gm Tablet, 1 GM PO QID, (Reported) Sumatriptan Succinate 100 Mg Tablet, 100 MG PO UD PRN for MIGRAINE, (Reported) Tiotropium [place] 1 Inh Aerp, 1 CAP IH HS, (Reported) Trazodone HCl 150 Mg Tablet, 150 MG PO HS, (Reported) Patient Home Medication List Home Medication List Reviewed: Yes Review of Systems Constitutional: see HPI; No chills, No fever EENTM: see HPI Respiratory: no symptoms reported Cardiovascular: no symptoms reported Genitourinary: no symptoms reported Musculoskeletal: see HPI, back pain Skin: no symptoms reported Psychiatric/Neurological: No Symptoms Reported Past Thopozm-Tgatxw-Dqqxwz Hx Patient Social History Type Used: Cigarettes Former Smoker, Quit: Dec 05, 2016 2nd Hand Smoke Exposure: Yes Recent Foreign Travel: No Contact w/Someone Who Travel: No Recent Hopitalizations: No Immunizations Up To Date Tetanus Booster (TDap): Unknown PED Vaccines UTD: No Date of Pneumonia Vaccine: Nov 11, 2016 Date of Influenza Vaccine: Dec 20, 2017 Seasonal Allergies Seasonal Allergies: Yes Past Medical History Surgeries: Yes (NECK, HIATAL HERNIA, CARDIAC ABLATION, BILAT ELBOW, BILAT CTR, BLADDER SLIN) Abdominal, Appendectomy, Bladder Surgery, Cardiac, Gallbladder, Joint Replacement, Orthopedic, Pancreatic, Tubal Ligation Respiratory: Yes (OXYGEN AT NIGHT AND PRN ) Asthma, COPD, Emphysema Cardiac: Yes (CARDIAC ABLATION 2015) Atrial Fibrillation, Coronary Artery Disease, High Cholesterol, Hypertension, Irregular Heartbeat, Palpitations, Peripheral Vascular Neurological: Yes (PARESTHESIAS OF BILAT LOWER EXT DUE TO FORAMINAL STENOSIS) Dementia, Headaches /Migraines, Neuropathy 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 Disorders: No 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 Sexually Transmitted Disease: No HIV/AIDS: No Genitourinary: Yes (OVERACTIVE BLADDER) UTI-Chronic Gastrointestinal: Yes (FREQ DIARRHEA, DYSPHAGIA) Gastroesophageal Reflux, Celaya's Esophagus, Hiatal Hernia, Ulcer Musculoskeletal: Yes (CHRONIC NECK AND BACK PAIN, CHRONIC HIP PAIN) Degenerate Disk Disease, Osteoporosis, Arthritis, Fibromyalgia, Chronic Back Pain Endocrine: Yes (DIET CONTROLLED NIDDM--NO LONGER ON MEDICATIONS; THYROID NODULES) Hypothyroidsim, Diabetes, Non-Insulin dep HEENT: Yes (DENTURES) Dysphagia, Glaucoma Loss of Vision: Bilateral Hearing Impairment: Hard of Hearing Cancer: No Psychosocial: Yes (ATTEMPTED SUICIDE > 26 YRS AGO) Anxiety, Suicide Attempts, Depression Integumentary: Yes Psoriasis Blood Disorders: No Adverse Reaction/Blood Tranf: No Family Medical History Cardiovascular disease G8 BROTHER (TRIPLE BYPASS) Diabetes mellitus 19 MOTHER FH: COPD (chronic obstructive pulmonary disease) 19 MOTHER FH: breast cancer 19 MOTHER FHx: brain cancer 19 FATHER No Pertinent Family Hx Physical Exam Vital Signs Capillary Refill : Height, Weight, BMI Height: 5'3.00" Weight: 166lbs. 0.0oz. [id number]; 29.4 BMI Method:Stated General Appearance: No Apparent Distress, WD/WN HEENT: PERRL/EOMI, TMs Normal Neck: Full Range of Motion, Normal Inspection Respiratory: No Accessory Muscle Use, No Respiratory Distress Back: Normal Inspection, Vertebral Tenderness Extremity: Normal Capillary Refill, Normal Inspection Neurologic/Psychiatric: Alert, Oriented x3, No Motor/Sensory Deficits Skin: Normal Color, Warm/Dry Departure Impression Primary Impression: Back pain Qualified Codes: M54.41 - Lumbago with sciatica, right side; G89.29 - Other chronic pain Disposition: HOME, SELF-CARE Condition: Stable Departure-Patient Inst. Decision time for Depature: 15:46 Referrals: VIPIN GOODMAN DO (PCP/Family) Primary Care Physician Patient Instructions: CHRONIC PAIN Add. Discharge Instructions: 1. Follow-up with your regular physician later this week. Medication as directed. Scripts Prednisone (Prednisone) 20 Mg Tab 40 MG PO DAILY, #8 TAB Prov: SRAVAN BRUCE BEATER ROOM HELPER 05/06/18 Methocarbamol (Robaxin-750) 750 Mg Tablet 750 MG PO Q6H PRN for PAIN-MODERATE TO SEVERE, #14 TAB Prov: SRAVAN BRUCE BEATER ROOM HELPER 05/06/18 SRAVAN BRUCE APRN May 06, 2018 15:48
[2018-05-06 16:00] VITALS: BP 136/72
--- NOTE | 2018-05-06 16:00 | NUR ---
ON DISCHARGE PATIENT WAS UPSET BECAUSE SHE IS NOT GETTING ANY PAIN MEDS P BRUCE TO ROOM AND DISCUSSED OF USE OF NARCOTICS USE
== END 2018-05-06 16:00 | disposition home or self-care (01) ==
LOC: EDUNIT# 15:32 → ER 15:33
DX: M54.5 Low back pain (principal); J43.9 Emphysema, unspecified; I48.91 Unspecified atrial fibrillation; I25.10 Atherosclerotic heart disease of native coronary artery without angina pectoris; E78.00 Pure hypercholesterolemia, unspecified; I10 Essential (primary) hypertension; E11.51 Type 2 diabetes mellitus with diabetic peripheral angiopathy without gangrene; I73.9 Peripheral vascular disease, unspecified; F03.90 Unspecified dementia, unspecified severity, without behavioral disturbance, psychotic disturbance, mood disturbance, and anxiety; G43.909 Migraine, unspecified, not intractable, without status migrainosus; K21.9 Gastro-esophageal reflux disease without esophagitis; M81.0 Age-related osteoporosis without current pathological fracture; E11.40 Type 2 diabetes mellitus with diabetic neuropathy, unspecified; F41.9 Anxiety disorder, unspecified; F32.9 Major depressive disorder, single episode, unspecified; Z82.49 Family history of ischemic heart disease and other diseases of the circulatory system; Z87.19 Personal history of other diseases of the digestive system; Z87.440 Personal history of urinary (tract) infections; Z80.3 Family history of malignant neoplasm of breast; Z80.8 Family history of malignant neoplasm of other organs or systems; Z91.5 Personal history of self-harm; Z88.1 Allergy status to other antibiotic agents; Z88.8 Allergy status to other drugs, medicaments and biological substances; Z88.2 Allergy status to sulfonamides; Z79.51 Long term (current) use of inhaled steroids; Z79.01 Long term (current) use of anticoagulants; Z87.891 Personal history of nicotine dependence; Z90.49 Acquired absence of other specified parts of digestive tract; Z98.51 Tubal ligation status; Z99.81 Dependence on supplemental oxygen
CPT/HCPCS: 99281

== ENCOUNTER → 2018-05-07 | Outpatient (CLI) | payer MEDICARE, MEDICAID ==
[~2018-05-07] MED LIST changes: +METH-313 PO
[2018-05-07 10:32] LABS: BUN/CREATININE RATIO 12; CREATININE SERUM 0.73 MG/DL (0.60-1.30); GFR ESTIMATED > 60
== END ==
LOC: RAD 10:01
PROVIDERS: ATTEND Nurse Practitioner Family
DX: J44.9 Chronic obstructive pulmonary disease, unspecified (principal); R06.02 Shortness of breath; Z72.0 Tobacco use
CPT/HCPCS: 36415; 82565; 84520

== ENCOUNTER → 2018-05-08 | Outpatient (CLI) | payer MEDICARE, MEDICAID ==
[~2018-05-08] MED LIST changes: +RECEIVED CONTRAST (Hold Metformin) IV SCH
[2018-05-08] MEDS: NS 100 ML (IVPB) BAG IV ONE (11:37)
[2018-05-08] MEDS: IOHEXOL 350 MG/ML 100 ML (OMNIPAQUE 350) VIAL IV ONE (11:37)
--- NOTE | 2018-05-08 13:50 | Diagnostic Imaging Report ---
PROCEDURE: CT chest with contrast only. TECHNIQUE: Multiple contiguous axial images were obtained through the chest after administration of intravenous contrast. DATE: May 08, 2018. COMPARISON: CT chest January 23, 2018. INDICATION: 62-year-old female, shortness of breath, cough. FINDINGS: There are upper lobe predominant changes of emphysema. There is a 2 mm calcified benign left lower lobe granuloma on axial image 29. There is no identified noncalcified pulmonary nodule or lung mass. There are very mild linear opacities in the lingula compatible with mild atelectasis and/or scarring. There is no additional focal airspace consolidation. There is no pneumothorax. There is no pleural effusion. The central airways are patent. There is no identified central pulmonary embolus. There is nondiagnostic assessment for segmental and subsegmental pulmonary emboli given the timing of the contrast bolus. The main pulmonary artery diameter measures 3.3 cm in diameter which is beyond upper limits of normal and suggestive of pulmonary artery hypertension. There are coronary artery calcifications and additional areas of atherosclerotic disease. The heart is not enlarged. There is no pericardial effusion. There is no identified abnormally enlarged mediastinal, hilar, or axillary lymph node which meets CT size criteria for adenopathy. Evaluation of the imaged portions of the upper abdomen is unremarkable. There are mild degenerative changes of the spine. There is partially visualized cervical spine hardware. There is no identified acute bony abnormality. IMPRESSION: CT CHEST. 1. No identified acute cardiopulmonary abnormality. 2. Upper lobe predominant changes of emphysema. 3. 2 mm benign left lower lobe calcified granuloma. Dictated by: Dictated on workstation # [id number]
== END ==
LOC: RAD 10:47
PROVIDERS: ATTEND Nurse Practitioner Family
DX: J43.9 Emphysema, unspecified (principal); J40 Bronchitis, not specified as acute or chronic; J84.10 Pulmonary fibrosis, unspecified; Z72.0 Tobacco use
CPT/HCPCS: 71260

== ENCOUNTER 2018-05-12 06:30 | Outpatient (CLI) | payer MEDICARE, MEDICAID ==
[~2018-05-12] VITALS: Ht 160 cm; Wt 78.9 kg
[~2018-05-12 06:30] MED LIST changes: -RECEIVED CONTRAST (Hold Metformin) IV SCH
[2018-05-14] MEDS ORDERED: EREN70AU SQ (08:28)
== END 2018-05-12 11:02 | disposition home or self-care (01) ==
LOC: PREOP 06:30
PROVIDERS: ATTEND Internal Medicine Critical Care Medicine
DX: Z01.818 Encounter for other preprocedural examination (principal)

== ENCOUNTER 2018-05-14 07:14 | Day surgery (SDC) | payer MEDICARE, MEDICAID ==
[~2018-05-14] VITALS: Ht 160 cm; Wt 78.9 kg
[2018-05-14] MEDS ORDERED: LIDOCAINE PF 1% 2 ML VIAL (OR ONLY) IJ ONE (07:15)
[2018-05-14] MEDS ORDERED: LIDOCAINE JELLY 2% 6 ML SYRINGE TOP ONE (07:15)
[2018-05-14] MEDS ORDERED: LIDOCAINE PF 2% 5 ML (XYLOCAINE) VIAL INJ ONE (07:15)
[2018-05-14] MEDS ORDERED: LACTATED RINGERS 1,000 ML IV STA (07:16)
--- OUTSIDE RECORDS SUMMARY | 2018-05-14 07:21 | XMS REPORT | Encounter Summary ---
Author Author [facility] Organization [facility] Address Unknown Phone Unavailable Care Team Providers Care Safe Deposit Attendant Name Role Phone Apoorva Shane MD Unavailable Edgardo Torres MD Unavailable Amanda Bhandari Unavailable Montana Villasenor MD Unavailable Gilles Ness MD Unavailable Rain Tariq MD Unavailable Harika Hsu MD Unavailable Nayana Mccarty RN Unavailable Unavailable Symone Lee Unavailable Unavailable Lia Griffin MD PCP Reason for Visit * Auth/Cert Referred By Contact Referred To Contact Status Reason Specialty Diagnoses / Procedures Diagnoses Nausea and vomiting in adult Dysphagia, unspecified type Loose stools Incontinence of feces, unspecified fecal incontinence type Regurgitation of food Nausea and vomiting in adult [R11.2] Dysphagia, unspecified type [R13.10] Loose stools [R19.5] Incontinence of feces, unspecified fecal incontinence type [R15.9] Regurgitation of food [R11.10] P rocedures CT ANORECTAL MANOMETRY MANOMETRY ESOPHAGEAL MANOMETRY ANORECTAL Encounter Details Care Team Description Date Type Department Anup Benton MD [address] [place] [address] MANOMETRY ESOPHAGEAL 05/12/2018 Surgery Gastrointenstinal Endoscopy [address] [place] [address] Social History Date Tobacco Use Types Packs/Day Years Used Current Every Day Smoker Cigarettes 0.25 46 Smokeless Tobacco: Never Used Alcohol Use Drinks/Week oz/Week Comments No 0 Standard 0.0 drinks or equivalent Sex Assigned at Date Recorded Not on file Industry Job Start Date Occupation Not on file Not on file Not on file Travel End Travel History Travel Start No recent travel history available. as of this encounter Functional Status Date of Assessment Functional Status Response 10/29/2017 Does the patient have a hearing impairment: Yes 10/29/2017 Does the patient have a visual impairment: Yes 10/29/2017 Does the patient have impaired ambulation: Yes 10/29/2017 Does the patient have an activity of daily living Yes (ADL) impairment: 10/29/2017 Does the patient have an instrumental activity of Yes daily living (IADL) impairment: Date of Assessment Cognitive Status Response 10/29/2017 Does the patient have a cognitive impairment: No as of this encounter Medications at Time of Discharge Start Date End Date Medication Sig Dispensed Refills albuterol (VENTOLIN HFA) Inhale 2 0 90 mcg/actuation inhaler puffs by mouth into the lungs daily. Shake well before use. alendronate (FOSAMAX) 70 Take 70 mg by 0 mg tablet mouth every 7 days. Take at least 30 minutes before breakfast with plain water. Do not lie down for 30 minutes. apixaban (ELIQUIS) 5 mg Take 5 mg by 0 tab tablet mouth twice daily. ARIPiprazole (ABILIFY) 10 Take 10 mg by 0 mg tablet mouth daily. baclofen (LIORESAL) 20 mg Take 20 mg by 0 tablet mouth three times daily. budesonide/formoterol Inhale 2 0 (SYMBICORT) 160/4.5 mcg Puffs by HFAA inhalation mouth daily. CALCIUM PO Take 333 mg 0 by mouth. cetirizine (ZYRTEC) 10 mg Take 10 mg by 0 tablet mouth every morning. clonazePAM (KLONOPIN) 1 Take 1 mg by 0 mg tablet mouth daily as needed. colesevelam(+) (WELCHOL) Take 1,875 mg 0 625 mg tablet by mouth twice daily with meals. dapagliflozin 5 mg tab Take 5 mg by 0 mouth daily. diltiazem CD (CARDIZEM Take 240 mg 0 CD) 240 mg capsule by mouth daily. diphenoxylate/atropine Take 2 0 (LOMOTIL) 2.5/0.025 mg tablets by tablet mouth four times daily as needed for Diarrhea. donepezil (ARICEPT) 10 mg Take 10 mg by 0 tablet mouth At Bedtime Daily. erenumab-aooe (AIMOVIG Inject 70 mg 0 AUTOINJECTOR (2 PACK)) 70 under the mg/mL injection syringe skin every 30 days. 03/13/2018 erenumab-aooe (AIMOVIG 0 AUTOINJECTOR) 70 mg/mL injection syringe ergocalciferol (VITAMIN Take 1 0 D-2) 50,000 unit capsule capsule by mouth every 7 days. Sundays fluticasone (FLONASE) 50 Apply 1-2 0 mcg/actuation nasal sprays to sprayIndications: each nostril inflammation of the nose as directed due to an allergy daily as needed. Shake bottle gently before using. furosemide (LASIX) 20 mg Take 20 mg by 0 tablet mouth every morning. gabapentin (NEURONTIN) Take 600 mg 0 400 mg capsule by mouth three times daily. Levocetirizine 5 mg tab Take by 0 mouth. levofloxacin (LEVAQUIN Take by 0 PO)Indications: 7 mouth daily. memantine,+, (NAMENDA) 10 Take 10 mg by 0 mg tablet mouth daily. 10/29/2017 metoclopramide (REGLAN) Take 1 tablet 90 tablet 1 10 mg tabletIndications: before meals Diarrhea, unspecified type mirtazapine (REMERON) 45 Take 45 mg by 0 mg tablet mouth at bedtime daily. montelukast (SINGULAIR) Take 10 mg by 0 10 mg tablet mouth at bedtime daily. MULTIVIT WITH Take 1 tablet 0 CALCIUM,IRON,MIN (WOMEN'S by mouth MULTIPLE VITAMINS PO) daily. 01/12/2018 nitrofurantoin Take one 14 capsule 0 monohyd/m-cryst capsule by (MACROBID) 100 mg mouth every capsuleIndications: 12 hours. Urinary tract infection Take with without hematuria, site food. unspecified nitroglycerin (NITROSTAT) Place 0.4 mg 0 0.4 mg tablet under tongue every 5 minutes as needed for Chest Pain. other medication 1 Dose. 5L/NC 0 home oxygen 07/10/2017 oxybutynin XL (DITROPAN Take 1 tablet 90 tablet 3 XL) 10 mg by mouth tabletIndications: daily. Do not Urinary incontinence, cut/ crush/ unspecified type chew pantoprazole DR Take 40 mg by 0 (PROTONIX) 40 mg tablet mouth twice daily. PREDNISONE POIndications: Take by 0 5 day taper mouth daily. primidone (MYSOLINE) 250 Take 250 mg 0 mg tablet by mouth twice daily. 04/28/2018 ranitidine(+) (ZANTAC) Take one 60 tablet 2 300 mg tablet tablet by mouth midday and one at bedtime. rifAXIMin (XIFAXAN) 550 Take 550 mg 0 mg tablet by mouth every 8 hours. ropinirole (REQUIP) 2 mg Take 2 mg by 0 tablet mouth At Bedtime Daily. sertraline (ZOLOFT) 100 Take 100 mg 0 mg tablet by mouth daily. simvastatin (ZOCOR) 20 mg Take 20 mg by 0 tablet mouth At Bedtime Daily. sumatriptan succinate Take 100 mg 0 (IMITREX) 100 mg tablet by mouth as Needed for Migraine symptoms. Dose may be repeated in 2 hours if needed. Max of 2 tablets in 24 hours. tiotropium (SPIRIVA) 18 Inhale 18 mcg 0 mcg capsule for inhaler by mouth daily. traZODone (DESYREL) 150 Take 150 mg 0 mg tablet by mouth at bedtime daily. venlafaxine XR (EFFEXOR Take 75 mg by 0 XR) 75 mg capsule mouth daily. Take with food. as of this encounter Plan of Treatment Care Team Description Date Type Specialty Balbina Garcia MD [address] [facility] [address] [place] [address] [phone] Neurogenic bladder 06/16/2018 Hospital Encounter Balbina Garcia MD [address] [facility] [address] [place] [address] [phone] CYSTOURETHROSCOPY WITH INJECTION FOR CHEMODENERVATION OF THE BLADDER (BOTOX 300 UNITS) 06/16/2018 Surgery as of this encounter Visit Diagnoses Diagnosis Nausea and vomiting in adult Nausea with vomiting Dysphagia, unspecified type Loose stools Abnormal feces Incontinence of feces, unspecified fecal incontinence type Regurgitation of food in this encounter Administered Medications Action Date Dose Rate Site Medication Order MAR Action 05/12/2018 12:08 PM DOUBLE HEAD MACHINE OPERATOR 4 mL lidocaine (XYLOCAINE) 2 % topical gel Given INTRA-PROCEDURE MED, Starting 05/12/18 at 1208, Until 05/12/18 at 1329, Intra-op in this encounter
--- OUTSIDE RECORDS SUMMARY | 2018-05-14 07:21 | XMS REPORT | Encounter Summary ---
Author Author [facility] Organization [facility] Address Unknown Phone Unavailable Care Team Providers Care Driller Helper Name Role Phone Apoorva Shane MD Unavailable Edgardo Torres MD Unavailable Amanda Bhandari Unavailable Montana Villasenor MD Unavailable Gilles Ness MD Unavailable Rain Tariq MD Unavailable Harika Hsu MD Unavailable Nayana Mccarty RN Unavailable Unavailable Symone Lee Unavailable Unavailable Lia Griffin MD PCP Reason for Visit * Reason Comments Pre-Procedure Instructions Encounter Details Care Team Description Date Type Department Emilia Capellan, BELINDA Pre-Procedure Instructions 05/07/2018 Telephone Gastrointenstinal Endoscopy [address] [place] [address] Social History Date Tobacco Use [...] cognitive impairment: No as of this encounter Miscellaneous Notes * Telephone Encounter - Emilia Capellan RN - 05/07/2018 9:18 AM SLUNK SKINNER Pre call completed to patient for their Esophogeal Manometry and Anorectal Manometry tests scheduled on 05/11/18 at 1200. Patient instructed to be NPO for 4 hrs prior to procedure and to do an enema the night before. Patient states understanding. K SKINNER in this encounter Plan of Treatment Care Team Description Date Type Specialty Balbina Garcia MD [address] [facility] [address] [place], [place] [id number] Neurogenic bladder 06/16/2018 Hospital Encounter Balbina Garcia MD [address] [facility] [address] [place] [address] CYSTOURETHROSCOPY WITH INJECTION FOR CHEMODENERVATION OF THE BLADDER (BOTOX 300 UNITS) 06/16/2018 Surgery as of this encounter Visit Diagnoses Not on filein this encounter
--- OUTSIDE RECORDS SUMMARY | 2018-05-14 07:21 | XMS REPORT | Encounter Summary ---
Author Author [facility] Organization [facility] Address Unknown Phone Unavailable Care Team Providers Care Dermatologist Managing Partner Name Role Phone Apoorva Shane MD Unavailable [...] [R15.9] Regurgitation of food [R11.10] P rocedures [place] ANORECTAL MANOMETRY MANOMETRY ESOPHAGEAL MANOMETRY ANORECTAL Encounter Details Care Team Description Date Type Department Anup Benton MD [address] [place] [address] Nausea and vomiting in adult 05/12/2018 Hospital Gastrointenstinal Encounter Endoscopy [address] [place] [address] Social History Date Tobacco Use Types Packs/Day [...] Date Type Specialty Balbina Garcia MD [address] [facility] [address] [place] [address] [phone] Neurogenic bladder 06/16/2018 Hospital Encounter Balbina Garcia MD [address] [facility] [address] [place] [address] [phone] CYSTOURETHROSCOPY WITH INJECTION FOR CHEMODENERVATION OF THE BLADDER (BOTOX 300 UNITS) 06/16/2018 Surgery as of this encounter Visit Diagnoses Not on filein this encounter
--- OUTSIDE RECORDS SUMMARY | 2018-05-14 07:21 | XMS REPORT | Clinical Summary ---
Author Author [facility] Organization [facility] Address Unknown Phone Unavailable Care Team Providers Care Material Worker Name Role Phone Apoorva Shane MD [...] in the Health Information Management department at [phone] for further assistance in locating additional records.[facility] Allergies Comments Active Allergy Reactions Severity Noted Date Bacitracin RASH Medium 03/28/2018 Ibuprofen RASH Medium 06/09/2009 Naproxen ANAPHYLAXIS, High 11/13/2017 NAUSEA AND VOMITING Naproxen Sodium NAUSEA ONLY Low 11/13/2017 Pugze-Uhhjf-Jxzgyjb-Pramo RASH Medium 01/23/2017 xine Medications End Date Status Medication Sig Dispensed Refills Start Date Active ropinirole (REQUIP) 2 mg Take 2 mg by 0 tablet mouth At Bedtime Daily. Active simvastatin (ZOCOR) 20 mg Take 20 mg by 0 tablet mouth At Bedtime Daily. Active memantine,+, (NAMENDA) 10 Take 10 mg by 0 mg tablet mouth daily. Active donepezil (ARICEPT) 10 mg Take 10 mg by 0 tablet mouth At Bedtime Daily. Active budesonide/formoterol Inhale 2 0 (SYMBICORT) 160/4.5 mcg Puffs by HFAA inhalation mouth daily. Active tiotropium (SPIRIVA) 18 Inhale 18 mcg 0 mcg capsule for inhaler by mouth daily. Active nitroglycerin (NITROSTAT) Place 0.4 mg 0 0.4 mg tablet under tongue every 5 minutes as needed for Chest Pain. Active diphenoxylate/atropine Take 2 0 (LOMOTIL) 2.5/0.025 mg tablets by tablet mouth four times daily as needed for Diarrhea. Active gabapentin (NEURONTIN) Take 600 mg 0 400 mg capsule by mouth three times daily. Active apixaban (ELIQUIS) 5 mg Take 5 mg by 0 tab tablet mouth twice daily. Active other medication 1 Dose. 5L/NC 0 home oxygen Active baclofen (LIORESAL) 20 mg Take 20 mg by 0 tablet mouth three times daily. Active MULTIVIT WITH Take 1 tablet 0 CALCIUM,IRON,MIN (WOMEN'S by mouth MULTIPLE VITAMINS PO) daily. Active rifAXIMin (XIFAXAN) 550 Take 550 mg 0 mg tablet by mouth every [address] Take 40 mg by 0 (PROTONIX) 40 mg tablet mouth twice daily. Active diltiazem CD (CARDIZEM Take 240 mg 0 CD) 240 mg capsule by mouth daily. Active colesevelam(+) (WELCHOL) Take 1,875 mg 0 625 mg tablet by mouth twice daily with meals. Active montelukast (SINGULAIR) Take 10 mg by 0 10 mg tablet mouth at bedtime daily. Active traZODone (DESYREL) 150 Take 150 mg 0 mg tablet by mouth at bedtime daily. Active albuterol (VENTOLIN HFA) Inhale 2 0 90 mcg/actuation inhaler puffs by mouth into the lungs daily. Shake well before use. Active ergocalciferol (VITAMIN Take 1 0 D-2) 50,000 unit capsule capsule by mouth every 7 days. Sundays Active fluticasone (FLONASE) 50 Apply 1-2 0 mcg/actuation nasal sprays to sprayIndications: each nostril inflammation of the nose as directed due to an allergy daily as needed. Shake bottle gently before using. Active oxybutynin XL (DITROPAN Take 1 tablet 90 tablet 3 XL) 10 mg by mouth 8 tabletIndications: daily. Do not Urinary incontinence, cut/ crush/ unspecified type chew Active ARIPiprazole (ABILIFY) 10 Take 10 mg by 0 mg tablet mouth daily. Active cetirizine (ZYRTEC) 10 mg Take 10 mg by 0 tablet mouth every morning. Active metoclopramide (REGLAN) Take 1 tablet 90 tablet 1 10 mg tabletIndications: before meals 8 Diarrhea, unspecified type Active clonazePAM (KLONOPIN) 1 Take 1 mg by 0 mg tablet mouth daily as needed. Active mirtazapine (REMERON) 45 Take 45 mg by 0 mg tablet mouth at bedtime daily. Active nitrofurantoin Take one 14 capsule 0 monohyd/m-cryst capsule by 8 (MACROBID) 100 mg mouth every capsuleIndications: 12 hours. Urinary tract infection Take with without hematuria, site food. unspecified Active sertraline (ZOLOFT) 100 Take 100 mg 0 mg tablet by mouth daily. Active dapagliflozin 5 mg tab Take 5 mg by 0 mouth daily. Active furosemide (LASIX) 20 mg Take 20 mg by 0 tablet mouth every morning. Active alendronate (FOSAMAX) 70 Take 70 mg by 0 mg tablet mouth every 7 days. Take at least 30 minutes before breakfast with plain water. Do not lie down for 30 minutes. Active primidone (MYSOLINE) 250 Take 250 mg 0 mg tablet by mouth twice daily. Active erenumab-aooe (AIMOVIG Inject 70 mg 0 AUTOINJECTOR (2 PACK)) 70 under the mg/mL injection syringe skin every 30 days. Active levofloxacin (LEVAQUIN Take by 0 PO)Indications: 7 mouth daily. Active PREDNISONE POIndications: Take by 0 5 day taper mouth daily. Active ranitidine(+) (ZANTAC) Take one 60 tablet 2 300 mg tablet tablet by 9 mouth midday and one at bedtime. Active erenumab-aooe (AIMOVIG 0 AUTOINJECTOR) 70 mg/mL 8 injection syringe Active venlafaxine XR (EFFEXOR Take 75 mg by 0 XR) 75 mg capsule mouth daily. Take with food. Active Levocetirizine 5 mg tab Take by 0 mouth. Active CALCIUM PO Take 333 mg 0 by mouth. Active sumatriptan succinate Take 100 mg 0 (IMITREX) 100 mg tablet by mouth as Needed for Migraine symptoms. Dose may be repeated in 2 hours if needed. Max of 2 tablets in 24 hours. 05/12/[address](+) Take one 60 capsule 2 (PRILOSEC) 40 mg capsule capsule by 8 mouth twice daily before meals. 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 This could be secondary to extensive WM disease. I did not have the chance to fully evaluate this but we can arrange for an evaluation with movement disorder specialist in the future. 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 Re-instructed on how to CIC 02/18/18: local ER, unable to CIC, cronin placed, exchanged monthly 05/04/18: presented for cronin management, instructed techniques for CIC Last Assessment & Plan: Resume CIC Urine culture ~ no antibiotics Discussed suprapubic catheter placement, she is taking Eliquis, she will review with MDs and possibility of holding Eliquis for suprapubic catheter placement She will call with update Urinary obstruction 05/28/2017 Overview: 61 year old [...] Heartburn 01/19/2015 COPD (chronic obstructive pulmonary disease) 05/18/2012 Diabetes mellitus 05/18/2012 TIA (transient ischemic attack) 05/18/2012 Diarrhea 05/18/2012 Encounters Care Team Description Date Type Specialty Anup Benton MD MANOMETRY ESOPHAGEAL 05/12/2018 Surgery Anup Benton MD Nausea and vomiting in adult 05/12/2018 Hospital Encounter Emilia Capellan RN Pre-Procedure Instructions 05/07/2018 Telephone Balbina Garcia MD Urge incontinence 05/04/2018 Hospital Lab Encounter Balbina Garcia MD Urge incontinence of urine (Primary Dx); Neurogenic bladder 05/04/2018 Office Visit Urology Balbina Garcia MD General Question 04/28/2018 Telephone Urology Amanda Bhandari ARNP 04/27/2018 Refill Gastroenterology Edgardo Torres MD Records Request 04/23/2018 Telephone Gastroenterology Amanda Bhandari ARNP Medication Question 04/08/2018 Telephone Gastroenterology Balbina Garcia MD Urinary Catheter Problem 04/06/2018 Telephone Urology Balbina Garcia MD General Question 04/03/2018 Telephone Urology Balbina Garcia MD General Question 03/11/2018 Telephone Urology Ivania Guy RN Pre-Procedure Instructions 03/11/2018 Telephone Margot Broussard Urinary incontinence, unspecified type 03/10/2018 Orders Only Urology Balbina Garcia MD General Question 03/02/2018 Telephone Urology Balbina Garcia MD General Question 02/23/2018 Telephone Urology Balbina Garcia MD Order Needed (catheter change monthly) 02/20/2018 Telephone Urology Balbina Garcia MD General Question 02/19/2018 Telephone Urology from Last 3 Months Family History Medical [...] 80s) Sister Alive Son Alive Social History Date Tobacco Use Types Packs/Day [...] Travel Start No recent travel history available. Last Filed Vital Signs Time Taken Vital Sign Reading 05/04/2018 8:15 AM WELDER GAS AUTOMATIC Blood Pressure 111/63 05/04/2018 8:15 AM [employer] Pulse 95 01/26/2018 8:06 AM CDT Temperature 37.1 C (98.8 F) 01/26/2018 8:06 AM CDT Respiratory Rate 18 01/02/2018 10:42 AM CDT Oxygen Saturation 98% - Inhaled Oxygen - Concentration 05/04/2018 8:15 AM [employer] Weight 78.5 kg (173 lb) 05/04/2018 8:15 AM [employer] Height 160 cm (5' 3") 05/04/2018 8:15 AM [employer] Body Mass Index 30.65 Plan of Treatment Care Team Description Date Type Specialty Balbina Garcia MD [address] [place] [address] Neurogenic bladder 06/16/2018 Hospital Encounter Balbina Garcia MD [address] [facility] [address] [place] [address] CYSTOURETHROSCOPY WITH INJECTION FOR CHEMODENERVATION OF THE BLADDER (BOTOX 300 UNITS) 06/16/2018 Surgery Health Maintenance Due Date Last Done Comments HEPATITIS C SCREENING 1953 PHYSICAL (COMPREHENSIVE) 1960 EXAM HIV SCREENING 1968 DILATED EYE EXAM 07/21/1971 DTAP/TDAP VACCINES (1 - 07/21/1971 Tdap) FOOT EXAM 07/21/1971 HBA1C 07/21/1971 MICROALBUMIN 07/21/1971 PNEUMONIA VACCINE (DM) 07/21/1971 CERVICAL CANCER SCREENING 07/21/1983 BREAST CANCER SCREENING 1993 COLORECTAL CANCER 07/21/2003 SCREENING SHINGLES RECOMBINANT 07/21/2003 VACCINE (1 of 2) INFLUENZA VACCINE 11/05/2017 06/21/2013 Procedures Comments Procedure Name Priority Date/Time Associated Diagnosis CULTURE-URINE Routine 05/04/2018 Urge incontinence of W/SENSITIVITY 8:15 AM [employer] urine POC URINE DIPSTICK MANUAL Routine 05/04/2018 Urge incontinence of READ urine from Last 3 Months Results * CULTURE-URINE W/SENSITIVITY (05/04/2018 8:15 AM [employer]) Battery Name URINE CULTURE MAIN LAB Specimen Description URINE, CLEAN CATCH MAIN LAB Special Requests NONE MAIN LAB Culture >100,000 organisms/ml MAIN LAB CITROBACTER AMALONATICUS >100,000 organisms/ml GELY TROPICALIS (A) Report Status FINAL MAIN LAB 05/06/2018 Organism ID >100,000 organisms/ml MAIN LAB CITROBACTER AMALONATICUS Specimen Urine - Urine,Clean Catch Antibiotic Method Susceptibility Organism Ampicillin ROSALIND (MCG/ML) INTERPRETATION >16 RESISTANT: Resistant >100,000 organisms/ml citrobacter amalonaticus Amoxicil/Clav Acid ROSALIND (MCG/ML) INTERPRETATION >16/8 RESISTANT: Resistant >100,000 organisms/ml citrobacter amalonaticus Cefazolin ROSALIND (MCG/ML) INTERPRETATION >16 RESISTANT: Resistant >100,000 organisms/ml citrobacter amalonaticus Levofloxacin ROSALIND (MCG/ML) INTERPRETATION <=1 SUSCEPTIBLE: Susceptible >100,000 organisms/ml citrobacter amalonaticus Nitrofurantoin ROSALIND (MCG/ML) INTERPRETATION >64 RESISTANT: Resistant >100,000 organisms/ml citrobacter amalonaticus Gentamicin ROSALIND (MCG/ML) INTERPRETATION <=2 SUSCEPTIBLE: Susceptible >100,000 organisms/ml citrobacter amalonaticus Trimethsulfa ROSALIND (MCG/ML) INTERPRETATION <=.05/9.5 SUSCEPTIBLE: Susceptible >100,000 organisms/ml citrobacter amalonaticus Piperacil/Tazobactam ROSALIND (MCG/ML) INTERPRETATION 4/4 SUSCEPTIBLE: Susceptible >100,000 organisms/ml citrobacter amalonaticus Tetracycline ROSALIND (MCG/ML) INTERPRETATION <=2 SUSCEPTIBLE: Susceptible >100,000 organisms/ml citrobacter amalonaticus Cefepime ROSALIND (MCG/ML) INTERPRETATION <=1 SUSCEPTIBLE: Susceptible >100,000 organisms/ml citrobacter amalonaticus Ertapenem ROSALIND (MCG/ML) INTERPRETATION <=0.25 SUSCEPTIBLE: Susceptible >100,000 organisms/ml citrobacter amalonaticus Ceftriaxone ROSALIND (MCG/ML) INTERPRETATION <=1 SUSCEPTIBLE: Susceptible >100,000 organisms/ml citrobacter amalonaticus Method ROSALIND (MCG/ML) INTERPRETATION ROSALIND (MCG/ML) INTERPRETATION >100,000 organisms/ml citrobacter amalonaticus Performing Organization Address City/State/Zipcode Phone Number MAIN LAB [address] [place] [address] * POC URINE DIPSTICK MANUAL READ (05/04/2018) Urine Glucose POC neg IN CLINIC Urine Bilirubin POC neg IN CLINIC Urine Ketone POC neg IN CLINIC Urine Specific [place] 1.020 IN CLINIC POC Urine Blood POC LARGE IN CLINIC Urine PH POC 6.5 IN CLINIC Urine Protein POC neg IN CLINIC Urine Urobilinogen POC neg IN CLINIC Urine Nitrite POC neg IN CLINIC Urine Leukocytes POC LARGE IN CLINIC Color,UA yellow IN CLINIC Turbidity,UA clear IN CLINIC Specimen Urine - Urine Performing Organization Address City/State/Zipcode Phone Number IN CLINIC from Last 3 Months Insurance Payer Benefit Subscriber ID Type Phone Address Plan / Group HUMANA MEDICARE HUMANA xxxxxxxxx Medicare CHOICE O [facility] AARP xxxxxxxxxxx [facility] STATE HEALTH Advance Directives Patient has advance care planning documents on file. For more information, please contact: [facility] [address] [facility] [address] [place] [address]
--- OUTSIDE RECORDS SUMMARY | 2018-05-14 07:22 | XMS REPORT | Encounter Summary ---
Author Author [facility] Organization [facility] Address Unknown Phone Unavailable Care Team Providers Care Sound Cutter Name Role Phone Apoorva Shane MD Unavailable Edgardo Torres MD Unavailable Amanda Bhandari Unavailable Montana Villasenor MD Unavailable Gilles Ness MD Unavailable Rain Tariq MD Unavailable Harika Hsu MD Unavailable Nayana Mccarty RN Unavailable Unavailable Symone Lee Unavailable Unavailable Lia Griffin MD PCP Encounter Details Care Team Description Date Type Department Margot Broussard Urinary incontinence, unspecified type 03/10/2018 Orders Only [facility] Physicians - Urology Ortho and Medical Pavilion Level 2A [address] [place] [address] Social History Date Tobacco Use Types Packs/Day [...] cognitive impairment: No as of this encounter Plan of Treatment Care Team Description Date Type Specialty Balbina Garcia MD [address] [facility] [address] [place] [address] Neurogenic bladder 06/16/2018 Hospital Encounter Balbina Garcia MD [address] [facility] [address] [place] [address] CYSTOURETHROSCOPY WITH INJECTION FOR CHEMODENERVATION OF THE BLADDER (BOTOX 300 UNITS) 06/16/2018 Surgery as of this encounter Procedures Comments Procedure Name Priority Date/Time Associated Diagnosis CULTURE-URINE Routine 01/09/2018 Urinary incontinence, W/SENSITIVITY unspecified type in this encounter Results * CULTURE-URINE W/SENSITIVITY (01/09/2018) Specimen Urine Narrative Performed At Performing Organization Address City/State/Zipcode Phone Number [facility] [address] [place] [address] in this encounter Visit Diagnoses Diagnosis Urinary incontinence, unspecified type in this encounter
--- OUTSIDE RECORDS SUMMARY | 2018-05-14 07:22 | XMS REPORT | Encounter Summary ---
Author Author [facility] Organization [facility] Address Unknown Phone Unavailable Care Team Providers Care Textile Worker Name Role Phone Apoorva Shane MD Unavailable Edgardo Torres MD Unavailable Amanda Bhandari Unavailable Montana Villasenor MD Unavailable Gilles Ness MD Unavailable Rain Tariq MD Unavailable Harika Hsu MD Unavailable Nayana Mccarty RN Unavailable Unavailable Symone Lee Unavailable Unavailable Lia Griffin MD PCP Reason for Visit * Reason Comments Medication Refill Encounter Details Care Team Description Date Type Department Amanda Bhandari ARNP [address] [facility] [address] [place] [address] 04/27/2018 Refill [facility] Physicians Ortho and Medical Pavilion Level 2B [address] [place] [address] Social History Date Tobacco Use [...] Telephone Encounter - Krystin Nicholson LPN - 04/28/2018 8:19 AM STAMP MAKER Refill request received for ranitidine 300mg Last OV 01/26/18 Last fill 01/26/18 # 60 w/ 3 refills Routing to Amanda Bhandari for approval/refusal P MAKER in this encounter Plan of Treatment Care Team Description Date Type Specialty Balbina Garcia MD [address] [facility] [address] [place], [place] [id number] Neurogenic bladder 06/16/2018 Hospital Encounter Balbina Garcia MD [address] [facility] [address] [place], [place] [id number] CYSTOURETHROSCOPY WITH INJECTION FOR CHEMODENERVATION OF THE BLADDER (BOTOX 300 UNITS) 06/16/2018 Surgery as of this encounter Visit Diagnoses Not on filein this encounter
--- OUTSIDE RECORDS SUMMARY | 2018-05-14 07:22 | XMS REPORT | Encounter Summary ---
Author Author [facility] Organization [facility] Address Unknown Phone Unavailable Care Team Providers Care Lead Simulation Modeling Engineer Name Role Phone Apoorva Shane MD Unavailable Edgardo Torres MD Unavailable Amanda Bhandari Unavailable Montana Villasenor MD Unavailable Gilles Ness MD Unavailable Rain Tariq MD Unavailable Harika Hsu MD Unavailable Nayana Mccarty RN Unavailable Unavailable Symone Lee Unavailable Unavailable Lia Griffin MD PCP Reason for Visit * Reason Comments Medication Question Encounter Details Care Team Description Date Type Department Amanda Bhandari ARNP [address] [facility] [address] [place] [address] Medication Question 04/08/2018 Telephone [facility] Physicians Ortho and Medical Pavilion Level 2B [address] [place] [address] Social History Date Tobacco Use [...] Telephone Encounter - Krystin Nicholson LPN - 04/08/2018 1:33 PM MORTAR MAKER Recevied VM from pt requesting Rx for valium for before ARM and HRM scheduled 05/12/18. Attempted to contact pt. Left detailed VM (authoization on file) advising that unfortunately she may not take any muscle relaxers or anticholinergics for example: oxybutin, valium. Pt to call w/ questions or concerns. AR MAKER in this encounter Plan of Treatment Care Team Description Date Type Specialty Balbina Garcia MD [address] [facility] [address] [place], [place] [phone] Neurogenic bladder 06/16/2018 Hospital Encounter Balbina Garcia MD [address] [facility] [address] [place], [place] [id number] CYSTOURETHROSCOPY WITH INJECTION FOR CHEMODENERVATION OF THE BLADDER (BOTOX 300 UNITS) 06/16/2018 Surgery as of this encounter Visit Diagnoses Not on filein this encounter
--- OUTSIDE RECORDS SUMMARY | 2018-05-14 07:22 | XMS REPORT | Encounter Summary ---
Author Author [facility] Organization [facility] Address Unknown Phone Unavailable Care Team Providers Care Editor Magazine Name Role Phone Apoorva Shane MD Unavailable Edgardo Torres MD Unavailable Amanda Bhandari Unavailable Montana Villasenor MD Unavailable Gilles Ness MD Unavailable Rain Tariq MD Unavailable Harika Hsu MD Unavailable Nayana Mccarty RN Unavailable Unavailable Symone Lee Unavailable Unavailable Lia Griffin MD PCP Reason for Visit * Reason Comments General Question Encounter Details Care Team Description Date Type Department Balbina Garcia MD [address] [facility] [address] [place] [address] General Question 04/03/2018 Telephone [facility] Physicians - Urology Ortho and Medical Pavilion Level 2A [address] [place] [address] Social History Date Tobacco Use [...] Telephone Encounter - Hans Broussard LPN - 04/03/2018 3:13 PM BEEF GRINDER Patient called in to report she has been having recent health issues and she had to have a catheter put back in on 03/24/18. GRINDER in this encounter Plan of Treatment Care Team Description Date Type Specialty Balbina Garcia MD [address] [facility] [address] [place], [place] [id number] Neurogenic bladder 06/16/2018 Hospital Encounter Balbina Garcia MD [address] [facility] [address] [place], [place] [id number] CYSTOURETHROSCOPY WITH INJECTION FOR CHEMODENERVATION OF THE BLADDER (BOTOX 300 UNITS) 06/16/2018 Surgery as of this encounter Visit Diagnoses Not on filein this encounter
--- OUTSIDE RECORDS SUMMARY | 2018-05-14 07:22 | XMS REPORT | Encounter Summary ---
Author Author [facility] Organization [facility] Address Unknown Phone Unavailable Care Team Providers Care Junior Media Buyer Name Role Phone Apoorva Shane MD Unavailable Edgardo Torres MD Unavailable Amanda Bhandari Unavailable Montana Villasenor MD Unavailable Gilles Ness MD Unavailable Rain Tariq MD Unavailable Harika Hsu MD Unavailable Nayana Mccarty RN Unavailable Unavailable Symone Lee Unavailable Unavailable Lia Griffin MD PCP Encounter Details Care Team Description Date Type Department Balbina Garcia MD [address] [facility] [address] [place], [place] [phone] Urge incontinence 05/04/2018 Hospital Clinlab Encounter [facility] [address] [place] [address] Social History Date Tobacco Use Types Packs/Day [...] mg capsule mouth daily. Take with food. 01/26/2018 05/12/[address](+) Take one 60 capsule 2 (PRILOSEC) 40 mg capsule capsule by mouth twice daily before meals. as of this encounter Plan of Treatment Care Team Description Date Type Specialty Balbina Garcia MD [address] [facility] [address] [place], [place] [phone] Neurogenic bladder 06/16/2018 Hospital Encounter Balbina Garcia MD [address] [facility] [address] [place], [place] [id number] CYSTOURETHROSCOPY WITH INJECTION FOR CHEMODENERVATION OF THE BLADDER (BOTOX 300 UNITS) 06/16/2018 Surgery as of this encounter Procedures Comments Procedure Name Priority Date/Time Associated Diagnosis CULTURE-URINE Routine 05/04/2018 Urge incontinence of W/SENSITIVITY 8:15 AM SECURITY SYSTEM INSTALLER urine in this encounter Results * CULTURE-URINE W/SENSITIVITY (05/04/2018 8:15 AM SECURITY SYSTEM INSTALLER) Battery Name URINE CULTURE [facility] Specimen Description URINE, CLEAN CATCH [facility] Special Requests NONE [facility] Culture >100,000 organisms/ml [facility] CITROBACTER AMALONATICUS >100,000 organisms/ml GELY TROPICALIS (A) Report Status FINAL [facility] 05/06/2018 Organism ID >100,000 organisms/ml [...] Address City/State/Zipcode Phone Number [facility] [address] [place] [address] in this encounter Visit Diagnoses Diagnosis Urge incontinence of urine Urge incontinence in this encounter
--- OUTSIDE RECORDS SUMMARY | 2018-05-14 07:22 | XMS REPORT | Encounter Summary ---
Author Author [facility] Organization [facility] Address Unknown Phone Unavailable Care Team Providers Care Invoice Checker Name Role Phone Apoorva Shane MD Unavailable Edgardo Torres MD Unavailable Amanda Bhandari Unavailable Montana Villasenor MD Unavailable Gilles Ness MD Unavailable Rain Tariq MD Unavailable Harika Hsu MD Unavailable Nayana Mccarty RN Unavailable Unavailable Symone Lee Unavailable Unavailable Lia Griffin MD PCP Reason for Visit * Reason Comments General Question Encounter Details Care Team Description Date Type Department Balbina Garcia MD [address] [facility] [address] [place] [address] General Question 03/11/2018 Telephone [facility] Physicians - Urology Ortho and Medical Pavilion Level 2A [address] [place] [address] Social History Date Tobacco Use [...] * Telephone Encounter - Elly Smallwood - 03/11/2018 12:19 PM MEDICAL PRACTICE ADMINISTRATOR Pt said [facility] never received paperwork to change her catheter. Her catheter was leaking and she pulled it out. Pt said she is urinating fine and will call if she has any problems. CAL PRACTICE ADMINISTRATOR in this encounter Plan of Treatment Care Team Description Date Type Specialty Balbina Garcia MD [address] [facility] [address] [place] [address] [phone] Neurogenic bladder 06/16/2018 Hospital Encounter Balbina Garcia MD [address] [facility] [address] [place], [place] [id number] CYSTOURETHROSCOPY WITH INJECTION FOR CHEMODENERVATION OF THE BLADDER (BOTOX 300 UNITS) 06/16/2018 Surgery as of this encounter Visit Diagnoses Not on filein this encounter
--- OUTSIDE RECORDS SUMMARY | 2018-05-14 07:22 | XMS REPORT | Encounter Summary ---
Author Author [facility] Address Unknown Phone Unavailable Care Team Providers Care Osteologist Name Role Phone Apoorva Shane MD Unavailable Edgardo Torres MD Unavailable Amanda Bhandari Unavailable Montana Villasenor MD Unavailable Gilles Ness MD Unavailable Rain Tariq MD Unavailable Harika Hsu MD Unavailable Nayana Mccarty RN Unavailable Unavailable Symone Lee Unavailable Unavailable Lia Griffin MD PCP Reason for Visit * Reason Comments Urinary Catheter Problem Encounter Details Care Team Description Date Type Department Balbina Garcia MD [address] [facility] [address] [place] [address] Urinary Catheter Problem 04/06/2018 Telephone [facility] Physicians - Urology Ortho and Medical Pavilion Level 2A [address] [place] [address] Social History Date Tobacco Use [...] encounter Miscellaneous Notes * Telephone Encounter - Huey Blandon MA - 04/06/2018 3:33 PM MANAGER HEAVY EQUIPMENT Pt called and explained that they need a catheter change, and asked that we request a catheter change from [facility]. Looked in pt's chart, found note from [facility] of instructions that were already sent to them, which included to change pt's catheter every 30 days. Called pt back and told them that I had re-faxed the instructions to [facility] so that they would change her catheter. Told pt to call us back if there were any further issues. GER HEAVY EQUIPMENT in this encounter Plan of Treatment Care Team Description Date Type Specialty Balbina Garcia MD [address] [facility] [address] [place] [address] [phone] Neurogenic bladder 06/16/2018 Hospital Encounter Balbina Garcia MD [address] [facility] [address] [place] [address] [phone] CYSTOURETHROSCOPY WITH INJECTION FOR CHEMODENERVATION OF THE BLADDER (BOTOX 300 UNITS) 06/16/2018 Surgery as of this encounter Visit Diagnoses Not on filein this encounter
--- OUTSIDE RECORDS SUMMARY | 2018-05-14 07:22 | XMS REPORT | Encounter Summary ---
Author Author [facility] Organization [facility] Address Unknown Phone Unavailable Care Team Providers Care Cement Contractor Name Role Phone Apoorva Shane MD Unavailable Edgardo Torres MD Unavailable Amanda Bhandari Unavailable Montana Villasenor MD Unavailable Gilles Ness MD Unavailable Rain Tariq MD Unavailable Harika Hsu MD Unavailable Nayana Mccarty RN Unavailable Unavailable Symone Lee Unavailable Unavailable Lia Griffin MD PCP Reason for Visit * Reason Comments Records Request Encounter Details Care Team Description Date Type Department Edgardo Torres MD [address] [place] [address] Records Request 04/23/2018 Telephone [facility] Physicians - Internal Medicine [facility] [address] [place] [address] Social History Date Tobacco Use Types Packs/Day [...] Telephone Encounter - Ghislaine Cox RN - 04/23/2018 11:25 AM MACHINE PACKAGE SEALER Barbara with Dr. Kayden Stanford's surgeon office [phone] informs requested all records from Medical records. States patient is seen once monthly regarding acid reflux. Discussion patient has esoph mano scheduled 05/12/2018. INE PACKAGE SEALER in this encounter Plan of Treatment Care Team Description Date Type Specialty Balbina Garcia MD [address] [facility] [address] [place], [place] [phone] Neurogenic bladder 06/16/2018 Hospital Encounter Balbina Garcia MD [address] [facility] [address] [place], [place] [phone] CYSTOURETHROSCOPY WITH INJECTION FOR CHEMODENERVATION OF THE BLADDER (BOTOX 300 UNITS) 06/16/2018 Surgery as of this encounter Visit Diagnoses Not on filein this encounter
--- OUTSIDE RECORDS SUMMARY | 2018-05-14 07:22 | XMS REPORT | Encounter Summary ---
Author Author [facility] Organization [facility] Address Unknown Phone Unavailable Care Team Providers Care Shaft Mechanic Name Role Phone Apoorva Shane MD Unavailable Edgardo Torres MD Unavailable Amanda Bhandari Unavailable Montana Villasenor MD Unavailable Gilles Ness MD Unavailable Rain Tariq MD Unavailable Harika Hsu MD Unavailable Nayana Mccarty RN Unavailable Unavailable Symone Lee Unavailable Unavailable Lia Griffin MD PCP Reason for Visit * Reason Comments Pre-Procedure Instructions Encounter Details Care Team Description Date Type Department Ivania uGy RN Pre-Procedure Instructions 03/11/2018 Telephone [facility] [address] [place] [address] Social History Date Tobacco Use [...] Date Type Specialty Balbina Garcia MD [address] [facility] [address] [place] [address] Neurogenic bladder 06/16/2018 Hospital Encounter Balbina Garcia MD [address] [facility] [address] [place] [address] CYSTOURETHROSCOPY WITH INJECTION FOR CHEMODENERVATION OF THE BLADDER (BOTOX 300 UNITS) 06/16/2018 Surgery as of this encounter Visit Diagnoses Not on filein this encounter
--- OUTSIDE RECORDS SUMMARY | 2018-05-14 07:22 | XMS REPORT | Encounter Summary ---
Author Author [facility] Organization [facility] Address Unknown Phone Unavailable Care Team Providers Care Vision Care Associate Name Role Phone Apoorva Shane MD [...] Date Type Department Balbina Garcia MD [address] [facility] [address] [place] [address] General Question 03/02/2018 Telephone [facility] Physicians - Urology Ortho and Medical Pavilion Level 2A [address] [place] [address] Social History Date Tobacco Use [...] as of this encounter Miscellaneous Notes * Addendum Note - Hans Urbina LPN - 03/02/2018 10:27 AM REED OR WIND INSTRUMENT TUNER Addended by: HANS URBINA on: 03/02/2018 10:27 AM Modules accepted: Orders OR WIND INSTRUMENT TUNER * Telephone Encounter - Hans Urbina LPN - 03/02/2018 10:13 AM REED OR WIND INSTRUMENT TUNER Lia called from [facility] to request another order for catheter change be faxed to her. She stated they could not find the prior order that was faxed. Called [facility] in [place], [place]. Faxed order to them at [phone]. OR WIND INSTRUMENT TUNER in this encounter Plan of Treatment Care Team Description Date Type Specialty Balbina Garcia MD [address] [facility] [address] [place] [address] [phone] Neurogenic bladder 06/16/2018 Hospital Encounter Balbina Garcia MD [address] [facility] [address] [place] [address] [phone] CYSTOURETHROSCOPY WITH INJECTION FOR CHEMODENERVATION OF THE BLADDER (BOTOX 300 UNITS) 06/16/2018 Surgery as of this encounter Visit Diagnoses Diagnosis Neurogenic bladder - Primary Neurogenic bladder, NOS in this encounter
--- OUTSIDE RECORDS SUMMARY | 2018-05-14 07:22 | XMS REPORT | Encounter Summary ---
Author Author [facility] Organization [facility] Address Unknown Phone Unavailable Care Team Providers Care Bone Char Puller Name Role Phone Apoorva Shane MD Unavailable Edgardo Torres MD Unavailable Amanda Bhandari Unavailable Montana Villasenor MD Unavailable Gilles Ness MD Unavailable Rain Tariq MD Unavailable Harika Hsu MD Unavailable Nayana Mccarty RN Unavailable Unavailable Symone Lee Unavailable Unavailable Lia Griffin MD PCP Reason for Visit * Reason Comments Neurogenic Bladder Encounter Details Care Team Description Date Type Department Balbina Garcia MD [address] [facility] [address] [place] [address] Urge incontinence of urine (Primary Dx); Neurogenic bladder 05/04/2018 Office Visit [facility] - Urology Ortho and [facility] Level 2A [address] [place] [address] Social History Date Tobacco Use [...] travel history available. as of this encounter Last Filed Vital Signs Time Taken Vital Sign Reading 05/04/2018 8:15 AM TIN CONTAINER STRAIGHTENER Blood Pressure 111/63 05/04/2018 8:15 AM TIN CONTAINER STRAIGHTENER Pulse 95 - Temperature - - Respiratory Rate - - Oxygen Saturation - - Inhaled Oxygen - Concentration 05/04/2018 8:15 AM TIN CONTAINER STRAIGHTENER Weight 78.5 kg (173 lb) 05/04/2018 8:15 AM TIN CONTAINER STRAIGHTENER Height 160 cm (5' 3") 05/04/2018 8:15 AM TIN CONTAINER STRAIGHTENER Body Mass Index 30.65 in this encounter Functional Status Date of Assessment [...] cognitive impairment: No as of this encounter Progress Notes * Abena Mcdowell - 05/04/2018 8:15 AM TIN CONTAINER STRAIGHTENER Patient was taught and shown different techniques on CIC today. She was julián to do well as she was standing vs sitting down. She states that she has a lot of catheters at home and will call when she is needing a refill. CONTAINER STRAIGHTENER * Balbina Garcia MD - 05/04/2018 8:15 AM TIN CONTAINER STRAIGHTENER Date of Service: 05/04/2018 Subjective: Nara Huizar is a 62 y.o. female, here for follow up and discuss cronin Chief Complaint Patient presents with Neurogenic Bladder History of Present Illness Nara Huizar is a 62 y.o. Female, with a pmhx of MS, CVA, DM, COPD, Alzheimers , Atrial fibrillation, IBS and LUTS. She has seen Dr Hsu and consultation with Dr Garcia 05/28/17, urinary urgency s/p urethral sling Dr Yeh (2014), s/p urethrolysis and sling excision , Dr Garcia, 06/13/17, 12/16/17 Dr. Garcia, 300 U botox injection. Most recent UDS on 10/29/17 reported large capacity, incomplete emptying, low pressure DO, positive LBP, hypotonicity. She has been instructed to perform CIC in the past. She reported continued incontinence with CIC, d/c CIC 01/24/18. Last office visit, 01/28/18, plan oxybutynin 10mg XL, restart CIC reviewed technique, plan repeat botox 300 units 06/16/18. She presented to local ER 02/18/18, she was unable to cath and had a cronin inserted. Cronin has been exchanged monthly. She presents today for management of catheter. She is willing to try CIC again. She is taking Oxybutynin 10mg XL. She denies hematuria, fever/chills, UTI. 01/28/18 PVR 215cc Questionaires: 05/04/18 AMRIK-6: 17 IIQ-7: 10 OAB-V8: 40 AUASS: 30 QoL: 6 Review of Systems Constitutional: Positive for activity change, appetite change, diaphoresis, fatigue and unexpected weight change. Negative for chills and fever. HENT: Positive for congestion and sinus pressure. Negative for hearing loss and mouth sores. Eyes: Negative for visual disturbance. Respiratory: Positive for apnea, cough and shortness of breath. Negative for chest tightness. Cardiovascular: Positive for leg swelling. Negative for chest pain and palpitations. Gastrointestinal: Positive for diarrhea. Negative for abdominal pain, anal bleeding, blood in stool, constipation, nausea, rectal pain and vomiting. Genitourinary: See HPI Musculoskeletal: Positive for arthralgias, back pain, gait problem and myalgias. Skin: Negative for rash and wound. Neurological: Positive for dizziness, tremors, weakness, light-headedness, numbness and headaches. Negative for seizures and syncope. Hematological: Negative for adenopathy. Bruises/bleeds easily. Psychiatric/Behavioral: [...] mg under the skin every 30 days. erenumab-aooe (AIMOVIG AUTOINJECTOR) 70 mg/mL injection syringe ergocalciferol (VITAMIN D-2) 50,000 unit capsule Take [...] Take 250 mg by mouth twice daily. ranitidine(+) (ZANTAC) 300 mg tablet Take [...] mg by mouth at bedtime daily. Vitals: 05/04/18 0815 BP: 111/63 Pulse: 95 Weight: 78.5 kg (173 lb) Height: 160 cm (63") Body mass index is 30.65 kg/m. Physical Exam Constitutional: She is oriented to person, place, and time. She appears well- developed and well-nourished. HENT: Head: Normocephalic. Eyes: Conjunctivae are normal. Neck: Normal range of motion. Cardiovascular: Normal rate. Pulmonary/Chest: Effort normal. Abdominal: Soft. Genitourinary: Genitourinary Comments: Cronin clear urine Nurse instructed CIC techniques Musculoskeletal: Normal range of motion. Neurological: She is alert and oriented to person, place, and time. Skin: Skin is warm and dry. Psychiatric: She has a normal mood and affect. Assessment and Plan: Problem Neurogenic Bladder She [...] for cronin management, instructed techniques for CIC Neurogenic bladder Resume CIC Urine culture ~ no antibiotics Discussed suprapubic catheter placement, she is taking Eliquis, she will review with MDs and possibility of holding Eliquis for suprapubic catheter placement She will call with update Orders Placed This Encounter CULTURE-URINE W/SENSITIVITY POC URINE DIPSTICK Jean Pierre Fregoso PA-C Urology Dr Dr. Garcia also met with patient and determined plan of care Will send letter to [facility] - Lia Griffin ATTZORAATION I personally performed the peters portions of the E/M visit, discussed case with Physician Diet Counselor and concur with documentation of history, physical exam, assessment, and treatment plan unless otherwise noted. Staff name: Balbina Garcia MD Date: 05/05/2018 CONTAINER STRAIGHTENER in this encounter Plan of Treatment Care Team Description Date Type Specialty Balbina Garcia MD [address] [facility] [address] [place] [address] [phone] Neurogenic bladder 06/16/2018 Hospital Encounter Balbina Garcia MD [address] [facility] [address] [place] [address] [phone] CYSTOURETHROSCOPY WITH INJECTION FOR CHEMODENERVATION OF THE BLADDER (BOTOX 300 UNITS) 06/16/2018 Surgery as of this encounter Procedures Comments Procedure Name Priority Date/Time Associated Diagnosis POC URINE DIPSTICK MANUAL Routine 05/04/2018 Urge incontinence of READ urine in this encounter Results * CULTURE-URINE W/SENSITIVITY (05/04/2018 8:15 AM TIN CONTAINER STRAIGHTENER) Battery Name URINE CULTURE MAIN LAB Specimen Description URINE, CLEAN CATCH MAIN LAB Special Requests NONE [facility] MAIN LAB Culture >100,000 organisms/ml MAIN LAB [...] >100,000 organisms/ml citrobacter amalonaticus Performing Organization Address City/[facility]/Zipcode Phone Number [facility] [address] [place] [address] * POC URINE DIPSTICK MANUAL READ (05/04/2018) Urine Glucose POC neg IN CLINIC Urine Bilirubin POC neg IN CLINIC Urine Ketone POC neg IN CLINIC Urine Specific [place] 1.020 IN CLINIC POC Urine Blood POC LARGE IN CLINIC Urine PH POC 6.5 IN CLINIC Urine Protein POC neg IN CLINIC Urine Urobilinogen POC neg IN CLINIC Urine Nitrite POC neg IN CLINIC Urine Leukocytes POC LARGE IN CLINIC Color,UA yellow IN CLINIC Turbidity,UA clear IN CLINIC Specimen Urine - Urine Performing Organization Address City/[facility] Phone Number IN CLINIC in this encounter Visit Diagnoses Diagnosis Urge incontinence of urine - Primary Urge incontinence Neurogenic bladder Neurogenic bladder, NOS * Assessment & Plan Note - Jean Pierre Fregoso PA-C - 05/05/2018 3:37 PM TIN CONTAINER STRAIGHTENER Associated Problem(s): Neurogenic bladder Resume CIC Urine culture ~ no antibiotics Discussed suprapubic catheter placement, she is taking Eliquis, she will review with MDs and possibility of holding Eliquis for suprapubic catheter placement She will call with update CONTAINER STRAIGHTENER in this encounter
--- OUTSIDE RECORDS SUMMARY | 2018-05-14 07:22 | XMS REPORT | Encounter Summary ---
Author Author [facility] Organization [facility] Address Unknown Phone Unavailable Care Team Providers Care Para Machine Operator Name Role Phone Apoorva Shane [...] Date Type Department Balbina Garcia MD [address] [facility] [address] [place] [address] General Question 04/28/2018 Telephone [facility] Physicians - Urology Ortho and Medical Pavilion Level 2A [address] [place] [address] Social History Date Tobacco Use [...] Telephone Encounter - Huey Blandon MA - 04/28/2018 3:22 PM INTEGRATION SOLUTION ARCHITECT Pt called, informing us that she has moved her appointment to 05/04/2018. GRATION SOLUTION ARCHITECT in this encounter Plan of Treatment Care Team Description Date Type Specialty Balbina Garcia MD [address] [facility] [address] [place] [address] [phone] Neurogenic bladder 06/16/2018 Hospital Encounter Balbina Garcia MD [address] [facility] [address] [place] [address] [phone] CYSTOURETHROSCOPY WITH INJECTION FOR CHEMODENERVATION OF THE BLADDER (BOTOX 300 UNITS) 06/16/2018 Surgery as of this encounter Visit Diagnoses Not on filein this encounter
--- OUTSIDE RECORDS SUMMARY | 2018-05-14 07:23 | XMS REPORT | Encounter Summary ---
Author Author [facility] Organization [facility] Address Unknown Phone Unavailable Care Team Providers Care [place]ling Floor Desk Clerk Name Role Phone Apoorva Shane MD [...] Date Type Department Balbina Garcia MD [address] [facility] [address] [place] [address] General Question 02/19/[address] [facility] Physicians - Urology Ortho and Medical Pavilion Level 2A [address] [place] [address] Social History Date Tobacco Use [...] Telephone Encounter - Neetu Mann RN - 03/16/2018 5:51 PM HEAD OF DIGITAL Spoke with patient and she stated that the catheter was painful and she had this removed. Patient is aware that she has an appointment on 04/29/18. She stated that she can't come to that appointment. [place] the [place]. Patient was instructed to call tomorrow to reschedule this appointment. OF DIGITAL * Telephone Encounter - Eva Cosme RN - 02/19/2018 3:40 PM HEAD OF DIGITAL Nara called and said she had been unable to cath for 24 hours. She went to the ED in her hometown and they placed a cronin. They want an order to [place] the [place]in [place] [address] Garcia. Please call the pt. I suggested she come here in the next 30 days but she said she cannot come. Eva Cosme RN,CPAN OF DIGITAL in this encounter Plan of Treatment Care Team Description Date Type Specialty Balbina Garcia MD [address] [facility] [address] [place] [address] [phone] Neurogenic bladder 06/16/2018 Hospital Encounter Balbina Garcia MD [address] [facility] [address] [place], [place] [id number] CYSTOURETHROSCOPY WITH INJECTION FOR CHEMODENERVATION OF THE BLADDER (BOTOX 300 UNITS) 06/16/2018 Surgery as of this encounter Visit Diagnoses Not on filein this encounter
--- OUTSIDE RECORDS SUMMARY | 2018-05-14 07:23 | XMS REPORT | Encounter Summary ---
Author Author [facility] Organization [facility] Address Unknown Phone Unavailable Care Team Providers Care Cold Type Composing Machine Operator Name Role Phone Apoorva Shane MD Unavailable Edgardo Torres MD Unavailable Amanda Bhandari Unavailable Montana Villasenor MD Unavailable Gilles Ness MD Unavailable Rain Tariq MD Unavailable Harika Hsu MD Unavailable Nayana Mccatry RN Unavailable Unavailable Symone Lee Unavailable Unavailable Lia Griffin MD PCP Reason for Visit * Reason Comments Order Needed catheter change monthly Encounter Details Care Team Description Date Type Department Balbina Garcia MD [address] [facility] [address] [place] [address] Order Needed (catheter change monthly) 02/20/2018 Telephone [facility] Physicians - Urology Ortho and Medical Pavilion Level 2A [address] [place] [address] Social History Date Tobacco Use [...] Telephone Encounter - Miracle Crowe RN - 02/20/2018 3:30 PM CANINE DEPUTY Returned call to patient, she states she now has a cronin catheter that had to be placed and the got approximately 700ml out. She was unable to self catheterize herself. She is planning to follow up with Dr. Garcia in April but needs an order to have it changed locally until then. Okay to order per ANTWAN. She would like a monthly catheter change order sent to [facility] in [place], [place]. She also needs to reschedule her appointment to after 04/24/18, will route to scheduling. Called [facility] in [place], [place]. Faxed order to them at [phone] along with insurance and demographic information. Asked that they let us know what else they need. NE DEPUTY in this encounter Plan of Treatment Care Team Description Date Type Specialty Balbina Garcia MD [address] [facility] [place] [address] [phone] Neurogenic bladder 06/16/2018 Hospital Encounter Balbina Garcia MD [address] [place] [address] [phone] CYSTOURETHROSCOPY WITH INJECTION FOR CHEMODENERVATION OF THE BLADDER (BOTOX 300 UNITS) 06/16/2018 Surgery as of this encounter Visit Diagnoses Diagnosis Indwelling urinary catheter present - Primary in this encounter
--- OUTSIDE RECORDS SUMMARY | 2018-05-14 07:23 | XMS REPORT | Encounter Summary ---
Author Author [facility] Organization [facility] Address Unknown Phone Unavailable Care Team Providers Care Spring Former Name Role Phone Apoorva Shane MD Unavailable Edgardo Torres MD Unavailable Amanda Bhandari Unavailable Montana Villasenor MD Unavailable Gilles Ness MD Unavailable Rain Tariq MD Unavailable Harika Hsu MD Unavailable Nayana Mccarty RN Unavailable Unavailable Symone Lee Unavailable Unavailable Lia Griffin MD PCP Reason for Visit * Reason Comments General Question Encounter Details Care Team Description Date Type Department Balbina Garcia MD [address] [facility] [address] [place] [address] General Question 02/23/2018 Telephone [facility] Physicians - Urology Ortho and Medical Pavilion Level 2A [address] [place] [address] Social History Date Tobacco Use [...] * Telephone Encounter - Margot Broussard - 02/23/2018 10:25 AM ARCHEOLOGY FACULTY MEMBER Pt called stating [facility] had not received her cath order that was put in . Per Miracle Crowe's note, order was sent to [facility]. Attempted to call pt back to tell her, LVM to call us back. EOLOGY FACULTY MEMBER in this encounter Plan of Treatment Care Team Description Date Type Specialty Balbina Garcia MD [address] [facility] [address] [place] [address] [phone] Neurogenic bladder 06/16/2018 Hospital Encounter Balbina Garcia MD [address] [facility] [address] [place], [place] [id number] CYSTOURETHROSCOPY WITH INJECTION FOR CHEMODENERVATION OF THE BLADDER (BOTOX 300 UNITS) 06/16/2018 Surgery as of this encounter Visit Diagnoses Not on filein this encounter
--- OUTSIDE RECORDS SUMMARY | 2018-05-14 07:24 | XMS REPORT ---
Author Author Israel Alvarez Organization [facility] Address [address] [place], [place] [id number] Care Team Providers Care Java Analyst Name Role Phone Israel Alvarez PCP Allergies and Adverse Reactions Name Reaction Notes ibuprofen rash Triple Antibiotic rash Plan of Treatment Planned Activity Comments Planned Date Planned Time Plan/Goal Needle electromyography for guidance in conjunction w/ chemodenervation 12:00 AM Medications Active Name Start Date [...] by inhalation route 3 times per day Aimovig Autoinjector 70 mg/mL subcutaneous auto-injector 03/13/2018 INJECT 1 ML (70MG) UNDER THE SKIN ONCE MONTHLY IN THE ABDOMEN, THIGH, OR OUTER AREA OF UPPER ARM Name Start Date Expiration Date SIG Comments [...] 155b Units today. Need 1 Vial 1 [id number] hydrocodone-acetaminophen 7.5-500 mg oral tablet 08/06/2012 09/05/2012 take 1 tablet by oral route every 4-6 hours as needed for pain for 30 days sumatriptan succinate 6 mg/0.5 mL subcutaneous cartridge 08/19/2012 09/18/2012 INJECT 1 DOSE (6 MG/0.5 ML) - MAY REPEAT IN 1 HOUR IF PAIN RETURNS OR INCREASES IN SEVERITY (MAX OF 2 DOSES IN 24 HOURS) Fiorinal-Codeine #3 19-65-673-40 mg oral capsule 04/30/2012 05/11/2012 take 1 capsule (54-82-856-40 mg) by oral route every 4 hours [...] h Botox 200 unit injection recon soln 01/06/2018 [...] simon given to patient Fioricet with Codeine 51-665-90-30 mg oral capsule 04/13/2013 08/03/2013 take 1 [...] HC BMI BSA BMI Percentile O2 Sat(%) 05/06/2018 8:49:00 AM 136 mmHg 78 mmHg 106 bpm 97.7 F 174.25 lbs 64 in 29.9096 kg/m 1.8892 m 94 % 02/04/2018 8:32:00 AM 120 mmHg 70 mmHg 80 bpm 97.7 F 170 lbs 64 in 29.18 kg/m2 1.87 m2 93 % 08/06/2017 9:37:00 AM 120 mmHg [...] AM Botox Toxin Type A, 1 unit [id number] Reviewed 01/03/2015 12:00 AM CHEMODENERV MUSC MIGRAINE Reviewed 02/02/2015 12:00 AM Pain Management Reviewed 02/02/2015 12:00 AM Occupational Therapy Consult Reviewed 02/02/2015 12:00 AM Kenalog, Per [address] [facility]#6455-7467-57 Reviewed 02/02/2015 12:00 AM DRAIN/INJ JOINT/BURSA W/O US Reviewed 04/10/2015 12:00 AM Botox Toxin Type A, 1 unit [id number] Reviewed 04/10/2015 12:00 AM CHEMODENERV MUSC MIGRAINE Reviewed 08/10/2015 12:00 AM Botox Toxin Type A, 1 unit [id number] Reviewed 08/10/2015 12:00 AM CHEMODENERV MUSC MIGRAINE Reviewed 11/09/2015 12:00 AM Botox Toxin Type A, 1 unit [id number] Reviewed 11/09/2015 12:00 AM CHEMODENERV MUSC MIGRAINE Reviewed 11/17/2015 12:00 AM INJ TRIGGER POINT 1/2 MUSCL Reviewed 02/08/2016 12:00 AM Botox Toxin Type A, 1 unit [id number] Reviewed 02/08/2016 12:00 AM CHEMODENERV MUSC MIGRAINE Reviewed 08/06/2011 12:00 AM N BLOCK INJ OCCIPITAL Reviewed 08/06/2011 12:00 AM Phenergan 25 Mg Im [facility] [address]-70 (Physiatry) Reviewed 08/06/2011 12:00 AM Toradol 15 Mg,[facility]#[id number] Reviewed 05/09/2016 12:00 AM Botox Toxin Type A, 1 unit [id number] Reviewed 05/09/2016 12:00 AM CHEMODENERV MUSC MIGRAINE Reviewed 08/20/2011 12:00 AM N BLOCK INJ OCCIPITAL Reviewed 08/20/2011 12:00 AM INJECT TRIGGER POINTS 3/> Reviewed 09/17/2011 12:00 AM INJECT TRIGGER POINTS 3/> Reviewed 09/17/2011 12:00 AM N BLOCK INJ OCCIPITAL Reviewed 10/01/2011 12:00 AM INJECT TRIGGER POINTS 3/> Reviewed 10/15/2011 12:00 AM INJECT TRIGGER POINTS 3/> Reviewed 10/15/2011 12:00 AM Imitrex [address] [facility] #27454-968-46 Reviewed 10/15/2011 12:00 AM Imitrex, [address]mg [facility]#: [id number] Reviewed 08/08/2016 12:00 AM Botox Toxin Type A, 1 unit [id number] Reviewed 08/08/2016 12:00 AM CHEMODENERV MUSC MIGRAINE Reviewed 11/04/2011 12:00 AM INJECT TRIGGER POINTS 3/> Reviewed 11/04/2011 12:00 AM Imitrex [address] [facility] #09319-380-56 Reviewed 11/04/2011 12:00 AM N BLOCK INJ OCCIPITAL Reviewed 11/04/2011 12:00 AM DRAIN/INJ JOINT/BURSA W/O US Reviewed 12/05/2011 12:00 AM INJECT TRIGGER POINTS 3/> Reviewed 12/05/2011 12:00 AM N BLOCK INJ OCCIPITAL Reviewed 11/07/2016 12:00 AM Botox Toxin Type A, 1 unit [id number] Reviewed 11/07/2016 12:00 AM CHEMODENERV MUSC MIGRAINE Reviewed 12/19/2011 12:00 AM INJECT TRIGGER POINTS 3/> Reviewed 12/19/2011 12:00 AM Imitrex [address] [facility] #82752-018-19 Reviewed 12/19/2011 12:00 AM THER/PROPH/DIAG INJ SC/IM Reviewed 12/19/2011 12:00 AM Imitrex, [address] [facility]#: 4081-5645-41 Reviewed 01/02/2012 12:00 AM INJECT TRIGGER POINTS 3/> Reviewed 01/02/2012 12:00 AM Imitrex [address] [facility] #48015-428-07 Reviewed 01/02/2012 12:00 AM THER/PROPH/DIAG INJ SC/IM Reviewed 01/02/2012 12:00 AM Imitrex, [address] [facility]#: 0309-9848-02 Reviewed 01/02/2012 12:00 AM N BLOCK INJ [...] SC/IM Reviewed 02/06/2012 12:00 AM Imitrex, [address] [facility]#: 6139-8743-84 Reviewed 02/06/2012 12:00 AM Imitrex [address] [facility] #08934-145-60 Reviewed 02/06/2012 12:00 AM Therapeutic, prophylactic or diagnostic injection (specify substance or drug); subcutaneous or intramuscular Reviewed 03/03/2012 12:00 AM THER/PROPH/DIAG INJ SC/IM Reviewed 03/03/2012 12:00 AM Imitrex, [address] [facility]#: [id number] Reviewed 03/03/2012 12:00 AM N BLOCK OTHER PERIPHERAL Reviewed 03/03/2012 12:00 AM INJECT TRIGGER POINTS 3/> Reviewed 03/17/2012 12:00 AM THER/PROPH/DIAG INJ SC/IM Reviewed 03/17/2012 12:00 AM Imitrex, [address] [facility]#: 8365-7537-29 Reviewed 03/17/2012 12:00 AM Norflex, Up to [address] [facility]#22712-294-81 Reviewed 03/26/2012 12:00 AM INJECT TRIGGER POINTS 3/> Reviewed 03/26/2012 12:00 AM INJECTION,MARCAINE/BUPIVACAINJ [facility] [address]-84 ([place]unter) Reviewed 03/26/2012 12:00 AM Imitrex [address] [facility] #36717-362-64 Reviewed 03/26/2012 12:00 AM Norflex, Up to [address] [facility]#85297-909-28 Reviewed 04/29/2017 12:00 AM CHEMODENERV MUSC MIGRAINE Reviewed 04/14/2012 12:00 AM THER/PROPH/DIAG INJ SC/IM Reviewed 04/14/2012 12:00 AM Imitrex, 6mg ND#: 7538-9653-33 Reviewed 04/14/2012 12:00 AM THER/PROPH/DIAG INJ SC/IM Reviewed 04/14/2012 12:00 AM Norflex, Up to 60 Mg [facility]#87800-247-98 Reviewed 04/14/2012 12:00 AM N BLOCK INJ OCCIPITAL Reviewed 04/14/2012 12:00 AM INJECT TRIGGER POINTS 3/> Reviewed 04/14/2012 12:00 AM Bupivicaine, [address] [facility]#2425-0998-30 Reviewed 05/06/2012 12:00 AM Bupivicaine, 30 ml [facility]#8809-8723-40 Reviewed 05/06/2012 12:00 AM INJECT TRIGGER POINTS 3/> Reviewed 05/06/2012 12:00 AM Norflex, Up to 60 Mg ND#08410-382-42 Reviewed 05/06/2012 12:00 AM Imitrex 6mg [place] #67169-760-64 Reviewed 05/06/2012 12:00 AM N BLOCK INJ OCCIPITAL Reviewed 05/06/2012 12:00 AM Kenalog, Per [address] [facility]#6652-5782-46 Reviewed 05/21/2012 12:00 AM Truman Chemodenervation muscle(s); muscle(s) innervated by facial Reviewed 05/21/2012 12:00 AM TRUMAN CHEMODENERVATION MUSCLE(S); NECK MUSCLE(S)(EG, FOR SPASMODIC Reviewed 05/21/2012 12:00 AM BOTULINUM TOXIN TYPE A, PER UNIT-Botox [facility] [id number] Huizar Reviewed 06/03/2012 12:00 AM INJECT TRIGGER POINTS 3/> Reviewed 06/03/2012 12:00 AM Bupivicaine, [address] [facility]#6912-0570-70 Reviewed 06/03/2012 12:00 AM Imitrex 6mg [place] #90131-411-94 Reviewed 06/03/2012 12:00 AM Norflex, Up to 60 Mg [facility]#74294-374-82 Reviewed 06/03/2012 12:00 AM THER/PROPH/DIAG INJ SC/IM Reviewed 06/03/2012 12:00 AM Imitrex, 6mg ND#: 9681-1206-31 Reviewed 06/03/2012 12:00 AM Norflex, Up to 60 Mg [facility]#15920-526-42 Reviewed 08/06/2017 12:00 AM CHEMODENERV MUSC MIGRAINE Reviewed 08/06/2017 12:00 AM Destruction of nerve by injection of botulinum toxin Reviewed 08/06/2017 12:00 AM Destruction of spinal cervical nerve by injection of botulinum toxin Reviewed 07/01/2012 12:00 AM INJECT TRIGGER POINTS 3/> Reviewed 07/01/2012 12:00 AM Bupivicaine, 30 ml [facility]#1863-5208-25 Reviewed 07/01/2012 12:00 AM N BLOCK INJ OCCIPITAL Reviewed 07/07/2012 12:00 AM THER/PROPH/DIAG INJ SC/IM Reviewed 07/07/2012 12:00 AM Imitrex, 6mg [facility]#: 2974-5871-24 Reviewed 07/07/2012 12:00 AM Toradol 15 Mg [facility]#6633-3031-00 Reviewed 07/15/2012 12:00 AM INJECT TRIGGER POINTS 3/> Reviewed 07/15/2012 12:00 AM INJECTION,MARCAINE/BUPIVACAINJ [facility] [address]-92 ([place]) Reviewed 07/15/2012 12:00 AM MASSAGE THERAPY Reviewed 07/15/2012 12:00 AM THER/PROPH/DIAG INJ SC/IM Reviewed 07/15/2012 12:00 AM Imitrex, 6mg [facility]#: 5550-9625-45 Reviewed 07/15/2012 12:00 AM Norflex, Up to 60 Mg [facility]#27447-701-06 Reviewed 07/15/2012 12:00 AM Imitrex 6mg ND #98576-665-01 Reviewed 07/15/2012 12:00 AM Norflex, Up to 60 Mg [facility]#33768-322-15 Reviewed 08/06/2012 12:00 AM INJECT TRIGGER POINTS 3/> Reviewed 08/06/2012 12:00 AM N BLOCK INJ OCCIPITAL Reviewed 08/06/2012 12:00 AM THER/PROPH/DIAG INJ SC/IM Reviewed 08/06/2012 12:00 AM Imitrex, 6mg [facility]#: 8545-2769-45 Reviewed 08/06/2012 12:00 AM Norflex, Up to 60 Mg [facility]#49518-005-89 Reviewed 11/06/2017 12:00 AM CHEMODENERV MUSC MIGRAINE Reviewed 11/06/2017 12:00 AM GUIDE NERV DESTR NEEDLE EMG Reviewed 11/06/2017 12:00 AM Destruction of nerve by injection of botulinum toxin Reviewed 11/06/2017 12:00 AM Destruction of nerve by injection of botulinum toxin Reviewed 08/19/2012 12:00 AM BOTULINUM TOXIN TYPE A, PER UNIT-Botox [facility] [id number] Huizar Reviewed 08/19/2012 12:00 AM Truman Chemodenervation muscle(s); muscle(s) innervated by facial Reviewed 08/19/2012 12:00 AM TRUMAN CHEMODENERVATION MUSCLE(S); NECK MUSCLE(S)(EG, FOR SPASMODIC Reviewed 08/19/2012 12:00 AM Imitrex 6mg ND #56659-500-29 Reviewed 08/19/2012 12:00 AM Norflex, Up to 60 Mg [facility]#80697-675-06 Reviewed 08/19/2012 12:00 AM THER/PROPH/DIAG INJ SC/IM Reviewed 08/19/2012 12:00 AM Imitrex, 6mg ND#: 3350-0948-89 Reviewed 08/19/2012 12:00 AM Norflex, Up to 60 Mg [facility]#23740-172-55 Reviewed 09/02/2012 12:00 AM Bupivicaine, 30 ml [facility]#2960-1555-91 Reviewed 09/02/2012 12:00 AM INJECT TRIGGER POINTS 3/> Reviewed 09/02/2012 12:00 AM Imitrex 6mg [facility] #90332-090-31 Reviewed 09/02/2012 12:00 AM Norflex, Up to 60 Mg [facility]#25910-567-26 Reviewed 09/02/2012 12:00 AM Imitrex, 6mg [facility]#: 1288-5567-65 Reviewed 09/16/2012 12:00 AM THER/PROPH/DIAG INJ SC/IM Reviewed 09/16/2012 12:00 AM Norflex, Up to 60 Mg [facility]#68188-807-14 Reviewed 09/16/2012 12:00 AM INJECT TRIGGER POINTS 3/> Reviewed 09/16/2012 12:00 AM Imitrex 6mg [facility] #34334-736-52 Reviewed 09/16/2012 12:00 AM Norflex, Up to [address] [facility]#04188-426-34 Reviewed 02/04/2018 12:00 AM GUIDE NERV DESTR NEEDLE EMG Reviewed 02/04/2018 12:00 AM CHEMODENERV MUSC MIGRAINE Reviewed 02/04/2018 12:00 AM Destruction of nerve by injection of botulinum toxin Reviewed 02/04/2018 12:00 AM Destruction of nerve by injection of botulinum toxin Reviewed 11/17/2012 12:00 AM Imitrex [address] [facility] #86330-038-19 Reviewed 11/17/2012 12:00 AM THER/PROPH/DIAG INJ SC/IM Reviewed 11/17/2012 12:00 AM Toradol [address] [facility]#2870-7426-78 Reviewed 11/17/2012 12:00 AM Bupivicaine, [address] [facility]#5448-3008-97 Reviewed 11/17/2012 12:00 AM INJECT TRIGGER POINTS 3/> Reviewed 11/17/2012 12:00 AM Imitrex [address] [facility] #15253-217-02 Reviewed 11/17/2012 12:00 AM Norflex, Up to [address] [facility]#95354-619-06 Reviewed 11/17/2012 12:00 AM N BLOCK INJ OCCIPITAL Reviewed 12/01/2012 12:00 AM INJECT TRIGGER POINTS 3/> Reviewed 05/27/2013 12:00 AM THER/PROPH/DIAG INJ SC/IM Reviewed 05/27/2013 12:00 AM Norflex, Up to [address] [facility]#66595-473-08 Reviewed 06/07/2013 12:00 AM INJECT TRIGGER POINTS 3/> Reviewed 06/24/2013 12:00 AM THER/PROPH/DIAG INJ SC/IM Reviewed 06/24/2013 12:00 AM Norflex, Up to [address] [facility]#72319-496-77 Reviewed 06/24/2013 12:00 AM INJECT TRIGGER POINTS 3/> Reviewed 06/24/2013 12:00 AM N BLOCK INJ OCCIPITAL Reviewed 07/08/2013 12:00 AM INJECT TRIGGER POINTS 3/> Reviewed 07/08/2013 12:00 AM THER/PROPH/DIAG INJ SC/IM Reviewed 07/08/2013 12:00 AM Norflex [address] [facility]#46618-149-03 Reviewed 07/08/2013 12:00 AM THER/PROPH/DIAG INJ SC/IM Reviewed 07/22/2013 12:00 AM INJECT TRIGGER POINTS 3/> Reviewed 07/22/2013 12:00 AM THER/PROPH/DIAG INJ SC/IM Reviewed 07/22/2013 12:00 AM Norflex [address] [facility]#82670-370-11 Reviewed 07/22/2013 12:00 AM THER/PROPH/DIAG INJ SC/IM Reviewed 08/03/2013 12:00 AM INJ TRIGGER POINT 1/2 MUSCL Reviewed 08/03/2013 12:00 AM THER/PROPH/DIAG INJ SC/IM Reviewed 08/03/2013 12:00 AM Norflex [address] [facility]#61069-583-27 Reviewed 08/03/2013 12:00 AM Imitrex, [address] [facility]#: 5256-8382-53 Reviewed 08/24/2013 12:00 AM INJECT TRIGGER POINTS 3/> Reviewed 08/24/2013 12:00 AM THER/PROPH/DIAG INJ SC/IM Reviewed 08/24/2013 12:00 AM Norflex [address] [facility]#90210-970-57 Reviewed 09/07/2013 12:00 AM INJECT TRIGGER POINTS 3/> Reviewed 09/07/2013 12:00 AM THER/PROPH/DIAG INJ SC/IM Reviewed 09/07/2013 12:00 AM Norflex [address] [facility]#58476-572-50 Reviewed 09/21/2013 12:00 AM Botox Toxin Type A, 1 unit [id number] Reviewed 09/21/2013 12:00 AM [place]MOD[place] [facility] [place] Reviewed 09/23/2013 12:00 AM INJECT TRIGGER POINTS 3/> Reviewed 11/08/2013 12:00 AM N BLOCK INJ OCCIPITAL Reviewed 11/08/2013 12:00 AM Kenalog, Per [address] [facility]#0736-3044-10 [facility] Medicare Reviewed 12/21/2013 12:00 AM Botox Toxin Type A, 1 unit [id number] Reviewed 12/21/2013 12:00 AM CHEMODENERV MUSC MIGRAINE Reviewed 03/25/2014 12:00 AM Botox Toxin Type A, 1 unit [id number] Reviewed 03/25/2014 12:00 AM [place]MOD[place] [facility] [place] Reviewed 03/25/2014 12:00 AM THER/PROPH/DIAG INJ SC/IM Reviewed 03/25/2014 12:00 AM Norflex, Up to [address] [facility]#34533-419-55 Reviewed 05/17/2014 12:00 AM Interventional Pain Consult Reviewed 05/17/2014 12:00 AM Occupational Therapy Consult Reviewed 06/10/2014 12:00 AM INJECT TRIGGER POINTS 3/> Reviewed 07/12/2014 12:00 AM DRAIN/INJ JOINT/BURSA W/O US Reviewed 07/12/2014 12:00 AM Kenalog, Per [address] [facility]#2805-2336-75 Reviewed 07/19/2014 12:00 AM Botox Toxin Type A, 1 unit [id number] Reviewed 07/19/2014 12:00 AM CHEMODENERV MUSC MIGRAINE Reviewed 2014 12:00 AM INJECT TRIGGER POINTS 3/> Reviewed 08/02/2014 12:00 AM THER/PROPH/DIAG INJ SC/IM Reviewed 08/02/2014 12:00 AM INJECT TRIGGER POINTS 3/> Reviewed 08/02/2014 12:00 AM THER/PROPH/DIAG INJ SC/IM Reviewed 08/02/2014 12:00 AM Norflex [address] [facility]#66407-319-01 Reviewed 08/02/2014 12:00 AM Pain Management Consult Reviewed 10/11/2014 12:00 AM Botox Toxin Type A, 1 unit [id number] Reviewed 10/11/2014 12:00 AM CHEMODENERV MUSC MIGRAINE [...] May 17 2014 8:56AM Muscle tension headache Feb 2014 8:56AM Myofascial muscle pain Feb 10 [...] status migrainosus Feb 04 2018 8: 34AM Chronic migraine w/o aura, intractable, w status migrainosus May 06 2018 8: 51AM Payers Insurance Name Company Name Plan Name Plan Number Policy Number Policy Group Number Start Date Medicare Part B Medicare [place] [id number] N/A [facility] [id number] N/A Medicare RHC Medicare RHC [id number] Wednesday, 2011 Medicare Part A Medicare - Lab/Xray [id number] Friday, January 052010 Medicare Part B [place] [id number] Saturday, February 05, 2011 [place] [employer] [place] [employer] [id number] N/A History of Encounters Visit Date Visit Type Provider 05/06/2018 Procedures Israel Alvarez DO 02/04/2018 Procedures Israel Alvarez DO 11/06/2017 Procedures [...] Procedures Ivelisse HUNTP 08/02/2014 Office visit Ivelisse HUNTP 2014 Office visit Ivelisse HUNTP 07/19/2014 Office visit Ivelisse HUNTP 07/12/2014 Office visit Penny Ayers MD 07/05/2014 [...] Ayers MD 09/16/2012 Office visit Olivia Cisneros CALL CENTER DIRECTOR 09/02/2012 Office visit Olivia Cisneros APRN 08/19/2012 Office visit Olivia Cisneros CALL CENTER DIRECTOR 08/06/2012 Office visit Penny Ayers MD 07/15/2012 Office visit Olivia Cisneros CALL CENTER DIRECTOR 07/07/2012 Office visit Penny Ayers MD 07/01/2012 Office visit Olivia Cisneros CALL CENTER DIRECTOR 06/03/2012 Office visit Olivia Cisneros CALL CENTER DIRECTOR 05/21/2012 Office visit Penny Ayers MD 05/06/2012 Office visit Olivia Cisneros CALL CENTER DIRECTOR 04/14/2012 Office visit Olivia Cisneros CALL CENTER DIRECTOR 03/26/2012 Office visit Olivia Cisneros CALL CENTER DIRECTOR 03/17/2012 Office visit Penny Ayers MD 03/03/2012 Office visit Olivia Cisneros CALL CENTER DIRECTOR 02/06/2012 Office visit Penny Ayers MD 01/21/2012 [...]
[2018-05-14] MEDS ORDERED: FLUMAZENIL (ROMAZICON) 0.1 MG/ML 5 ML VIAL INJ PRN (07:30)
[2018-05-14] MEDS ORDERED: NALOXONE 0.4 MG/ML 1 ML (NARCAN) VIAL IVP PRN (07:30)
[2018-05-14] MEDS ORDERED: MIDAZOLAM 2 MG/2 ML (VERSED) VIAL ONE ×2 (07:49→08:05)
[2018-05-14] MEDS ORDERED: proPOfol 200 MG/20 ML (DIPRIVAN) VIAL IV ONE ×2 (07:49→08:18)
[2018-05-14 07:54] VITALS: BP 104/73
--- OUTSIDE RECORDS SUMMARY | 2018-05-14 08:14 | XMS REPORT ---
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 Active 06629346 Problem Postmenopausal Z78.0 Active 16797922 Problem Screening breast examination Z12.39 Active 266218164 Problem Essential tremor G25.0 Active 03621576 Problem Osteopenia M85.80 Active 578068038 Problem Hyperlipidemia E78.5 Active 04976494 Problem Cigarette nicotine dependence without complication F17.210 Active 76251750 Problem Osteoporosis M81.0 Active 16465902 Problem Vascular dementia without behavioral disturbance F01.50 Active 78606721633562175 Problem Arthritis M19.90 Active 0879804 Problem Dementia without behavioral disturbance, unspecified dementia type F03.90 Active 70479145 Problem Other chronic pancreatitis K86.1 Active 075095433 Problem Xeroderma Q80.9 Active 55788530 Problem Chronic obstructive pulmonary disease with acute lower respiratory infection J44.0 Active 097065731 Problem Unspecified psychosis F29 Active 76796904 Problem Atherosclerosis of night[place] artery of both lower extremities with intermittent claudication I70.213 Active 228364069027453 Problem 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.118 Active 9753564546806 Problem Type 2 diabetes mellitus with diabetic neuropathy, without long-term current use of insulin E11.40 Active 45121473 Problem Tarsal tunnel syndrome, bilateral G57.53 Active 86767177730442509 Problem Hammertoe of right foot M20.41 Active 455241992 Problem Gastroesophageal reflux disease, esophagitis presence not specified K21.9 Active 469468693 Problem Migraine without aura and with status migrainosus, not intractable G43.001 Active 043135994 Problem Chronic pain syndrome G89.4 Active 054497376 Problem Migraine without aura and without status migrainosus, not intractable G43.009 Active 232884212 Problem Major depressive disorder, recurrent episode, moderate F33.1 Active 581224211 Problem Controlled type 2 diabetes mellitus without complication, without long -term current use of insulin E11.9 Active 316888409 Problem Cervicalgia M54.2 Active 1328535513236 Problem Diabetic polyneuropathy associated with type 2 diabetes mellitus E11.42 Active 14231113 Problem COPD (chronic obstructive pulmonary disease) J44.9 Active 93377143 Problem Hammertoe of left foot M20.42 Active 657349592 Problem Gastroparesis K31.84 Active 625256997 Problem Stress incontinence of urine N39.3 Active 54774885 Problem History of common bile duct surgery Z98.89 Active 106822630 Problem Bipolar affective disorder, currently depressed, moderate F31.32 Active 871326477 Problem Colon polyp K63.5 Active 68475194 Problem Acute exacerbation of chronic obstructive pulmonary disease (COPD) J44.1 Active 560663352 Problem Coronary artery disease involving nightmute coronary artery of nightmute heart with other form of angina pectoris I25.118 Active 2129225131702 Problem Postconcussion syndrome F07.81 Active 06330627 Problem Barretts esophagus K22.70 Active 462318123 Problem Chronic fatigue R53.82 Active 78824570 Problem Paroxysmal atrial fibrillation I48.0 Active 301799212 Problem Unspecified atherosclerosis of [place] arteries of extremities, unspecified extremity I70.209 Active 100220972499892 Problem Generalized anxiety disorder F41.1 Active 774123350 Problem Chronic atrial fibrillation I48.2 Active 874721002 Problem Crohn''s disease without complication, unspecified gastrointestinal tract location K50.90 Active 31390545 Problem Type 2 diabetes mellitus with diabetic peripheral angiopathy without gangrene E11.51 Active 240175173 ALLERGIES No Information ENCOUNTERS Encounter Location Date Diagnosis [facility] [address] [facility] [id number], [place] [address] 15 May, 2018 [facility] [address] [facility] [id number], [place] [address] 16 Feb, 2018 Type 2 diabetes mellitus with diabetic neuropathy, without long-term current use of insulin E11.40 ; Onychomycosis B35.1 and Tarsal tunnel syndrome, bilateral G57.53 [facility] [id number] [place] [address] 56833- 4334 Jan, Gastroesophageal reflux disease, esophagitis presence not specified K21.9 [facility] [id number] [place] [address] 44043- 5384 Dec, [facility] [id number] [place] [address] 93156- 6787 Dec, High risk medication use Z79.899 [facility] [id number] [place] [address] 81198- 9750 Dec, [facility] [id number] [place] [address] 34425- 3418 24 Dec, 2017 [facility] [id number] [place] [address] 11875- 3431 Dec, [facility] [id number] [place] [address] 96391- 0872 19 Dec, 2017 [facility] [id number] [place] [address] 11463- 7015 18 Dec, 2017 [facility] [id number] [place] [address] 34809- 5693 14 Dec, 2017 [facility] [id number] [place] [address] 95319- 1984 14 Dec, 2017 [facility] [id number] [place] [address] 36204- 1975 13 Dec, 2017 [facility] [id number] [place] [address] 13506- 9949 13 Dec, 2017 Type 2 diabetes mellitus with diabetic peripheral angiopathy without gangrene E11.51 ; Contusion of face, initial encounter S00.83XA and Bronchitis J40 [facility] [id number] [place] [address] 37005- 0058 10 Dec, 2017 [facility] [id number] [place] [address] 38143- 7057 Dec, [facility] [id number] [place] [address] 65066- 9577 Nov, [facility] [id number] [place] [address] 90525- 1812 Nov, Onychomycosis B35.1 ; Hammertoe of left foot M20.42 ; Hammertoe of right foot M20.41 and Type 2 diabetes mellitus with diabetic neuropathy, without long-term current use of insulin E11.40 [facility] [id number] [place] [address] 90929- 7939 Nov, [facility] [id number] [place] [address] 52363- 0356 Nov, Bronchitis J40 [facility] [id number] [place] [address] 44072- 9938 Oct, [facility] [id number] [place] [address] 18093- 8185 Oct, Bipolar affective disorder, currently depressed, moderate F31.32 ; Vascular dementia without behavioral disturbance F01.50 and Generalized anxiety disorder F41.1 [facility] [address] [place] [address] 24153- 8818 Oct, [facility] [id number] [place] [address] 98227- 6821 Oct, [facility] [id number] [place] [address] 21882- 3492 Oct, Edema of both legs R60.0 [facility] [id number] [place] [address] 45922- 8256 Oct, [facility] [id number] [place] [address] 05847- 3864 Sep, [facility] [id number] [place] [address] 80229- 1627 Sep, [facility] [address], [place] [address] 8556 Sep, [facility] [id number] [place] [address] 89511- 9888 18 Sep, 2017 Encounter for well woman exam with routine gynecological exam Z01.419 ; Screening for STDs (sexually transmitted diseases) Z11.3 ; Screening breast examination Z12.31 and Overweight (BMI 25.0-29.9) E66.3 [facility] [address] [address] 2268 11 Sep, 2017 [facility] [id number] [place] [address] 27772- 6294 Sep, [facility] [id number] [place] [address] 62145- 2291 Sep, [facility] [id number] [place] [address] 24756- 0179 August, [facility] [address], [place] [address] 8498 August, [facility] [id number] [place] [address] 65465- 9975 August, Type 2 diabetes mellitus with diabetic neuropathy, without long-term current use of insulin E11.40 and Sprain of right ankle, unspecified ligament, initial encounter S93.401A [facility] [address], [place] [address] 1206 August, [facility] [address], [place] [address] 6247 August, [facility] [id number] [place] [address] 65093- 9039 August, [facility] [address], [place] [address]- 3651 August, Gastroesophageal reflux disease, esophagitis presence not specified K21.9 [facility] [id number] [place] [address] 76524- 5602 August, [facility] [id number] [place] [address] 27862- 5462 August, [facility] [id number] [place] [address] 44900- 1200 August, [facility] [id number] [place] [address] 51048- 0067 August, Type 2 diabetes mellitus with diabetic neuropathy, without long-term current use of insulin E11.40 and Elevated liver enzymes R74.8 [facility] [id number] [place] [address] 78205- 4326 Jul, [facility] [id number] [place] [address] 06689- 1566 Jul, Cough R05 [facility] [id number] [place] [address] 06048- 6957 Jul, [facility] [id number] [place] [address] 28110- 9989 Jul, [facility] [id number] [place] [address] 86579- 2209 Jul, Bipolar affective disorder, currently depressed, moderate F31.32 ; Vascular dementia without behavioral disturbance F01.50 and Generalized anxiety disorder F41.1 [facility] [address] [place] [address] 45942- 7256 Jul, [facility] [id number] [place] [address] 45209- 6502 Jul, Type 2 diabetes mellitus with diabetic neuropathy, without long-term current use of insulin E11.40 and Elevated liver enzymes R74.8 [facility] [id number] [place] [address] 39814- 8717 Jul, [facility] [id number] [place] [address] 84795- 5379 Jul, [facility] [id number] [place] [address] 00687- 1698 Jul, [facility] [id number] [place] [address] 22967- 9596 Jul, Post-menopausal Z78.0 [facility] [id number] [place] [address] 43138- 5118 Jul, Stress incontinence of urine N39.3 [facility] [id number] [place] [address] 58801- 1583 Jul, [facility] [id number] [place] [address] 80980- 3405 Jul, [facility] [id number] [place] [address] 27437- 7125 Jul, Stress incontinence of urine N39.3 and Cough R05 [facility] [id number] [place] [address] 08730- 5353 Jul, [facility] [id number] [place] [address] 11230- 9319 Jul, [facility] [id number] [place] [address] 21439- 2059 Jul, [facility] [id number] [place] [address] 69384- 4156 Jul, Gastroesophageal reflux disease, esophagitis presence not specified K21.9 [facility] [id number] [place] [address] 76332- 7784 Jun, Diabetic polyneuropathy associated with type 2 diabetes mellitus E11.42 [facility] [id number] [place] [address] 25350- 5459 Jun, Diabetic polyneuropathy associated with type 2 diabetes mellitus E11.42 ; Coronary artery disease involving nightm[place] coronary artery of nightm[place] heart with other form of angina pectoris I25.118 and Paroxysmal atrial fibrillation I48.0 [facility] [id number] [place] [address] 78114- 8212 Jun, [facility] [address], [place] [address]- 6641 Jun, [facility] [address], [place] [address]- 6104 Jun, Gastroenteritis K52.9 [facility] [address], [place] [address]- 6951 Jun, Gastroenteritis K52.9 [facility] [address] [place] [address] 92075- 2476 Jun, [facility] [address], [place] [address]- 4346 Jun, [facility] [address], [place] [address]- 5857 Jun, Sprain of right ankle, unspecified ligament, initial encounter S93.401A ; Type 2 diabetes mellitus with diabetic neuropathy, without long-term current use of insulin E11.40 ; Atherosclerosis of night[place] artery of both lower extremities with intermittent claudication I70.213 ; 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.118 ; Chronic atrial fibrillation I48.2 and Crohn''s disease without complication, unspecified gastrointestinal tract location K50.90 [facility] [address], [place] [address] 17 Jun, 2017 Cough R05 and Chronic obstructive pulmonary disease with acute lower respiratory infection J44.0 [facility] [address], [place] [address]- 1664 16 Jun, 2017 [facility] [address], [place] [address]- 4310 15 Jun, 2017 Coughing R05 ; Unspecified atherosclerosis of [place] arteries of extremities, unspecified extremity I70.209 ; Type 2 diabetes mellitus with diabetic peripheral angiopathy without gangrene E11.51 ; Crohn''s disease without complication, unspecified gastrointestinal tract location K50.90 ; Other chronic pancreatitis K86.1 and Chronic atrial fibrillation I48.2 [facility] [address] [address] Jun, [facility] [id number] [place] [address] 64138- 0573 Jun, Bipolar affective disorder, currently depressed, moderate F31.32 ; Vascular dementia without behavioral disturbance F01.50 and Generalized anxiety disorder F41.1 [facility] [address], [place] [address]- 7143 May, Generalized anxiety disorder F41.1 [facility] [address] [address]- 9638 May, [facility] [id number] [place] [address] 91376- 6024 May, [facility] [id number] [place] [address] 96117- 5231 May, Coughing R05 [facility] [id number] [place] [address] 86934- 6452 May, [facility] [address] [place] [address] 63623- 2227 May, Bipolar affective disorder, currently depressed, moderate F31.32 ; Vascular dementia without behavioral disturbance F01.50 and Generalized anxiety disorder F41.1 [facility] [address], [place] [address]- 8260 Apr, Generalized anxiety disorder F41.1 [facility] [address], [place] [address]- 1793 Apr, [facility] [address], [place] [address]- 1953 Apr, Vascular dementia without behavioral disturbance F01.50 ; Generalized anxiety disorder F41.1 and Bipolar affective disorder, currently depressed, moderate F31.32 [facility] [address], [place] [address]- 8706 Apr, Generalized anxiety disorder F41.1 [facility] [address], [place] [address]87 Apr, Cough R05 and Acute exacerbation of chronic obstructive pulmonary disease (COPD) J44.1 [facility] [id number] [place] [address] 58056- 7719 Apr, [facility] [id number] [place] [address] 84355 -1631 31 Mar, 2017 Cough R05 and Cigarette nicotine dependence without complication F17.210 [facility] [id number] [place] [address] 60321- 6107 06 Mar, 2017 [facility] [address] 12764- 4720 Feb, Generalized anxiety disorder F41.1 ; Major depressive disorder, recurrent episode, moderate F33.1 ; Vascular dementia without behavioral disturbance F01.50 and Unspecified psychosis F29 [facility] [id number] [place] [address] 66708- 1499 Feb, [facility] [id number] [place] [address] 47406- 6092 Feb, [facility] [id number] [place] [address] 46698- 5855 Feb, Generalized anxiety disorder F41.1 [facility] [id number] [place] [address] 75787- 3952 Feb, Generalized anxiety disorder F41.1 [facility] [id number] [place] [address] 61286- 7400 Feb, Dizziness R42 ; Chronic fatigue R53.82 ; Postconcussion syndrome F07.81 ; Fall, initial encounter W19.XXXA and Disorientation R41.0 [facility] [address] [place] [address] 06137- 4960 03 Feb, 2017 Postconcussion syndrome F07.81 ; Injury of head, initial encounter S09.90XA ; Fall, initial encounter W19.XXXA ; Disorientation R41.0 and Acute cystitis with hematuria N30.01 [facility] [id number] [place] [address] 53427- 0814 Jan, Gastroesophageal reflux disease, esophagitis presence not specified K21.9 ; Post-menopausal Z78.0 and Migraine without aura and without status migrainosus, not intractable G43.009 [facility] [place] [address] 12281- 2449 Jan, [facility] [address] 05466- 7716 Jan, Generalized anxiety disorder F41.1 ; Major depressive disorder, recurrent episode, moderate F33.1 ; Vascular dementia without behavioral disturbance F01.50 and Unspecified psychosis F29 [facility] [place] [address] 09222- 2873 Jan, Pneumonia of left lower lobe due to infectious organism J18.1 [facility] [address] 98879- 3977 Jan, Migraine without aura and with status migrainosus, not intractable G43.001 [facility] [place] [address] 14304 -0412 Jan, Migraine without aura and without status migrainosus, not intractable G43.009 [facility] [id number] [place] [address] 09064- 5175 Dec, Hematoma T14.8 [facility] [id number] [place] [address] 48949- 0634 Dec, [facility] [address] 87558 -8079 Nov, Fatigue, unspecified type R53.83 [facility] [id number] [place] [address] 99746- 5451 Nov, Scabies B86 and Coronary artery disease involving nightmute coronary artery of nightmute heart with other form of angina pectoris I25.118 [facility] [address], [place] [address]- 2689 Nov, [facility] [id number] [place] [address] 07501- 5205 Nov, [facility] [id number] [place] [address] 12003- 1089 Oct, [facility] [id number] [place] [address] 46607- 9621 Oct, Generalized anxiety disorder F41.1 and Major depressive disorder, recurrent episode, moderate F33.1 [facility] [id number] [place] [address] 88221- 8950 Oct, Cramp of both lower extremities R25.2 [facility] [id number] [place] [address] 48125- 3425 Oct, Leg cramps R25.2 [facility] [id number] [place] [address] 65881- 8562 Oct, Chronic pain syndrome G89.4 [facility] [id number] [place] [address] 74109- 6707 Oct, [facility] [address] [place] [address] 42670- 7151 Oct, [facility] [address] [place] [address] 61370- 8074 Oct, Routine gynecological examination Z01.419 and Screening for breast cancer Z12.31 [facility] [address] [place] [address] 19343- 7363 Sep, Diarrhea R19.7 [facility] [id number] [place] [address] 34034- 7326 Sep, Back pain M54.9 [facility] [address] [place] [address] 62469- 7629 Sep, [facility] [id number] [place] [address] 03252- 6794 Sep, [facility] [address] 69990 -2745 August, Xeroderma Q80.9 [place] [address] 73955- 0883 August, Dementia without behavioral disturbance, unspecified dementia type F03.90 [place] [address] 57444- 4481 August, Chronic pain syndrome G89.4 [place] [address] 66521- 9862 August, [place] [address] 01367- 6554 August, Hyperlipidemia E78.5 ; Other fatigue R53.83 and Other specified hypotension I95.89 [facility] [place] [address] 85413 -5731 August, Dysuria R30.0 ; Other fatigue R53.83 and Other specified hypotension I95.89 [place] [address] 74628- 1495 August, [place] [address] 93353- 7879 Jul, Pain in left knee M25.562 and Gastroenteritis K52.9 [place] [address] 26483- 8136 Jul, [place] [address] 58853- 3201 Jul, Diarrhea R19.7 [facility] [place] [address] 62675 -8367 Jul, Spider bite, accidental or unintentional, initial encounter T63.301A [place] [address] 54029- 9139 Jul, Primary osteoarthritis of right knee M17.11 and Arthritis M19.90 [place] [address] 65172- 3386 Jul, Generalized anxiety disorder F41.1 and Major depressive disorder, recurrent episode, moderate F33.1 [place] [address] 41007- 5238 Jul, Type 2 diabetes mellitus with diabetic polyneuropathy E11.42 and Temporal headache R51 [place] [address] 02830- 7491 Jul, Back pain M54.9 [place] [address] 32679- 9293 Jul, [place] [address] 20181- 6049 Jul, [place] [address] 52980- 8489 30 Jun, 2016 Nausea R11.0 [facility] [place] [address] 59945 -2030 Jun, Acute suppurative otitis media of both ears without spontaneous rupture of tympanic membranes, recurrence not specified H66.003 and COPD exacerbation J44.1 [place] [address] 37918- 3687 Jun, Generalized anxiety disorder F41.1 [place] [address] 81433- 5678 16 Jun, 2016 [facility] [place] [address] 67213 -6320 Jun, [facility] [place] N [address] 69743 -5338 Jun, Shortness of breath R06.02 and COPD exacerbation J44.1 [place] [address] 00469- 1658 Jun, Eczema, unspecified type L30.9 [place] [address] [place] [id number] [place] [address] 92862- 2338 Jun, [facility] [address] [place] [id number] [place] [address] 66332- 4081 May, [place] [address] [place] [id number] [place] [address] 98060- 9518 May, Muscle cramping R25.2 [place] [address] [place] [id number] [place] [address] 12564- 4461 May, [place] [address] 30686- 0666 Apr, Diarrhea R19.7 [place] [address] [place] [id number] [place] [address] 00037- 2057 Apr, [place] [address] [place] [id number] [place] [address] 79941- 6038 Apr, Chronic pain syndrome G89.4 [place] [address] [place] [id number] [place] [address] 18189- 1988 Apr, Cramp of both lower extremities R25.2 and Vascular dementia without behavioral disturbance F01.50 [place] [address] [place] [id number] [place] [address] 68196- 7385 Apr, Type 2 diabetes mellitus with diabetic polyneuropathy E11.42 and Cigarette nicotine dependence without complication F17.210 [place] [address] [place] [id number] [place] [address] 99382- 0753 Mar, Generalized anxiety disorder F41.1 [place] [address] 05182- 8071 Feb, Generalized anxiety disorder F41.1 and Major depressive disorder, recurrent episode, moderate F33.1 [place] [address] [place] [id number] [place] [address] 91307- 9912 Feb, [facility] [id number] [place] [address] 65622 -1336 Feb, Dysuria R30.0 and Acute cystitis with hematuria N30.01 [place] [address] [place] [id number] [place] [address] 18409- 2161 Jan, [place] [address] [place] [id number] [place] [address] 21455- 6876 Jan, [place] [address] 46304- 5538 Jan, [place] [address] 48664- 5789 Jan, [facility] [address] [place] [id number] [place] [address] 18954 -6111 Jan, Wasp sting, accidental or unintentional, initial encounter T63.461A [address] 86055- 7272 Jan, Encounter for immunization Z23 [place] [address] [place] [id number] [place] [address] 01493- 6394 Jan, [place] [address] [place] [id number] [place] [address] 33339- 7421 Jan, [place] [address] [place] [id number] [place] [address] 36735- 4434 Dec, Generalized anxiety disorder F41.1 and Major depressive disorder, recurrent episode, moderate F33.1 [place] [address] [place] [id number] [place] [address] 89895- 8796 Dec, Routine gynecological examination Z01.419 ; Postmenopausal Z78.0 ; Screening breast examination Z12.39 ; Osteopenia M85.80 and Breast cancer screening Z12.39 [place] [address] [place] [id number] [place] [address] 30773- 3642 Dec, [place] [address] [place] [id number] [place] [address] 49278- 3640 19 Dec, 2015 [facility] [address] [facility] [id number] [place] [address]- 3071 16 Dec, 2015 [facility] [address] [facility] [id number] [place] [address]- 6320 16 Dec, 2015 [facility] [address] [place] [address]- 2167 14 Dec, 2015 [facility] [address] [place] [id number] [place] [address]- 3015 06 Dec, 2015 [facility] [address] [place] [address]- 2178 30 Nov, 2015 [facility] [address] [address]9710 Nov, Cough R05 ; Other viral agents as the cause of diseases classified elsewhere B97.89 and Acute upper respiratory infection, unspecified J06.9 [facility] [address] [address]- 9613 Nov, [facility] [address] [address]- 0610 Nov, [facility] [address] [address]- 2817 Nov, [facility] [address] [address]- 0512 Nov, [facility] [address] [address]- 5903 Nov, [facility] [address] [place] [id number] [address]- 4182 Oct, [facility] [address] [address]- 6758 Oct, [facility] [address] [address]- 7673 Oct, [facility] [address] [place] [id number] [place] [address] 28369- 6693 13 Oct, 2015 Chronic pain syndrome G89.4 [place] [address] 86261- 5839 Sep, Generalized anxiety disorder F41.1 and Major depressive disorder, recurrent episode, moderate F33.1 [place] [address] 73642- 4182 Sep, [place] [address] 49226- 0887 Sep, [place] [address] 35661- 9266 14 Sep, 2015 Generalized anxiety disorder F41.1 [place] [address] 02407- 1157 13 Sep, 2015 Cramp of both lower extremities R25.2 and Cervicalgia M54.2 [place] [address] 02219- 8683 Sep, Generalized anxiety disorder F41.1 [place] [address] 64781- 7067 Sep, [facility] [address] [place] [id number] [place] [address] 43230 -3098 August, Rash R21 ; Itching L29.9 and Allergic response, subsequent encounter T78.40XD [place] [address] 00819- 9763 August, Primary insomnia F51.01 [facility] [address] [place] [id number] [place] [address] 03584 -8790 August, Rash R21 ; Itching L29.9 and Allergic response, initial encounter T78.40XA [place] [address] 30941- 3718 August, [facility] [address] 10334- 1119 August, Cramp of both lower extremities R25.2 [facility] [address] [address]- 1687 August, Back pain M54.9 [facility] [address] [facility] [id number] [address]- 9471 August, [facility] [address] [place] [id number] [place] [address] 20414- 4231 August, [facility] [address] [facility] [id number] [address] August, Cramp of both lower extremities R25.2 [facility] [address] [place] [id number] [place] [address] 45029- 9704 August, [facility] [address] [place] [id number] [place] [address] 37794- 9808 August, Syncope R55 ; Paroxysmal atrial fibrillation I48.0 ; Dementia without behavioral disturbance, unspecified dementia type F03.90 and Chronic pain syndrome G89.4 [facility] [address] [place] [id number] [place] [address] 22072- 0884 August, Type 2 diabetes mellitus with diabetic polyneuropathy E11.42 and Syncope R55 [facility] [address] [address]- 8017 Jul, [facility] [address], [place] [address]- 5726 Jul, [facility] [address] [address]- 5428 Jul, [facility] [address] [place] [id number] [place] [address] 66607- 9561 Jul, [facility] [address] [address]- 2037 Jul, [facility] [address] [place] [id number] [place] [address] 66002- 2256 Jul, UTI (urinary tract infection) N39.0 [facility] [address] [address]- 4245 18 Jul, 2015 [facility] [address], [place] [address]- 0270 18 Jul, 2015 Major depressive disorder, recurrent episode, moderate F33.1 and Generalized anxiety disorder F41.1 [facility] [address] [address]- 8290 Jul, Generalized anxiety disorder F41.1 [facility] [address] [address]- 1607 Jul, Diarrhea R19.7 [facility] [address] [address]- 1263 14 Jul, 2015 [facility] [address] [address]- 4611 Jun, [facility] [address] [address]- 8907 Jun, Eczema L30.9 [facility] [address] [address]- 0342 Jun, [facility] [address] [address]- 7002 Jun, COPD (chronic obstructive pulmonary disease) J44.9 [facility] [address] [address]- 4903 Jun, [facility] [address] [place] [id number] [address]- 4277 Jun, Major depressive disorder, recurrent episode, moderate F33.1 and Generalized anxiety disorder F41.1 [facility] [address] [place] [id number] [address]- 0877 May, [facility] [address] [address]- 8962 May, UTI (urinary tract infection) N39.0 [facility] [address] [address]- 2665 May, [facility] [address], [place] [address]- 7616 May, [facility] [address] [address]- 5386 May, [facility] [address] [place] [address] 11098- 5955 May, [facility] [address] [address]- 0942 Apr, Major depressive disorder, recurrent episode, moderate F33.1 and Generalized anxiety disorder F41.1 [facility] [address] [address]- 9403 Apr, COPD (chronic obstructive pulmonary disease) J44.9 [facility] [address] [address]- 4371 Apr, [facility] [address] [place] [address] 52623- 3877 Apr, Atrial flutter I48.92 [facility] [address] [address]- 7062 Apr, [facility] [address], [place] [address]- 2854 Apr, [facility] [address], [place] [address]- 7357 Mar, [facility] [address], [place] [address]- 9377 Mar, [facility] [address] [address]- 5904 Mar, [facility] [address], [place] [address]- 3030 Mar, Hyperlipidemia E78.5 ; Type 2 diabetes mellitus with diabetic polyneuropathy E11.42 ; Major depressive disorder, recurrent episode, moderate F33.1 and Chronic pain syndrome G89.4 [facility] [address] [place] [id number] [place] [address] 26414- 3593 16 Mar, 2015 [facility] [address] [place] [id number] [place] [address] 22646- 4211 Mar, [facility] [address] [place] [id number] [place] [address] 81248- 2925 Mar, [facility] [address] [place] [id number] [place] [address] 02105- 3306 Mar, [facility] [address] [place] [id number] [place] [address] 63018- 7730 Feb, COPD (chronic obstructive pulmonary disease) J44.9 and Back pain M54.9 [facility] [address] [place] [id number] [place] [address] 62698- 9085 Feb, [facility] [address] [place] [id number] [place] [address] 63000- 3100 Feb, [facility] [address] [place] [id number] [place] [address] 10634- 4781 Feb, [facility] [address] [place] [id number] [place] [address] 94952- 3723 Feb, [facility] [address] [place] [id number] [place] [address] 43709- 8363 Feb, [facility] [address] [place] [id number] [place] [address] 42341- 6593 Feb, [facility] [address] [place] [id number] [place] [address] 22052- 8180 Feb, [facility] [address] [place] [id number] [place] [address] 66764- 5663 Feb, [facility] [address] [place] [id number] [place] [address] 14823- 4750 Feb, Diabetes E11.9 ; Back pain M54.9 and COPD (chronic obstructive pulmonary disease) J44.9 [facility] [address] [place] [id number] [place] [address] 08708- 7104 Jan, [facility] [address] [place] [id number] [place] [address] 08025- 4585 Jan, Major depression, recurrent F33.9 and Generalized anxiety disorder F41.1 [facility] [address] [place] [id number] [place] [address] 59103- 7902 Jan, Chronic pain G89.29 [facility] [address] [place] [id number] [place] [address] 22280- 8063 Jan, [facility] [address] [place] [id number] [place] [address] 62226- 7513 Jan, [facility] [address] [place] [id number] [place] [address] 89907- 8693 Jan, [facility] [address] [place] [id number] [place] [address] 37794- 9811 Jan, [facility] [address] [place] [id number] [place] [address] 73466- 3859 Jan, Nicotine dependence F17.200 [facility] [address] [place] [id number] [place] [address] 53958- 3352 Jan, Nicotine dependence F17.200 and Back pain M54.9 [facility] [address] [place] [id number] [place] [address] 11272- 1406 Jan, [facility] [address] [place] [id number] [place] [address] 43876- 2719 Dec, [facility] [address] [place] [id number] [place] [address] 07151- 6091 Dec, Anxiety, generalized 300.02 and Major depression, recurrent 296.30 [facility] [address] [place] [id number] [place] [address] 19253- 5555 24 Dec, 2014 [facility] [address], [place] [address]- 1006 21 Dec, 2014 [facility] [address] [place] [id number] [place] [address] 02639- 3020 17 Dec, 2014 [facility] [address] [address]- 9985 15 Dec, 2014 [facility] [address] [place] [id number] [place] [address] 17414- 4392 14 Dec, 2014 [facility] [address] [place] [id number] [place] [address] 58836- 9365 11 Dec, 2014 [facility] [address] [place] [id number] [place] [address] 70399- 1115 10 Dec, 2014 [facility] [address] [place] [id number] [place] [address] 25054- 0608 08 Dec, 2014 Skin tear 879.8 [facility] [address] [place] [id number] [place] [address] 07416- 8763 08 Dec, 2014 Routine gynecological examination V72.31 ; Breast cancer screening V76.10 and Family history of breast cancer in first degree relative V16.3 [facility] [address] [place] [address] 67757- 4917 Dec, [facility] [address] [address]- 3720 Dec, [facility] [address] [place] [address] 06386- 4610 Nov, [facility] [address] [place] [address] 24208- 0254 Nov, [facility] [address] [place] [id number] [place] [address] 04920- 9914 Nov, Poor balance 781.99 and Vascular dementia, uncomplicated 290.40 [facility] [address], [place] [address]- 7699 Nov, [facility] [address], [place] [address]- 0348 Nov, Major depression, recurrent 296.30 and Anxiety, generalized 300.02 [facility] [address] [address]- 5894 Nov, [facility] [address] [address]- 9315 Nov, [facility] [address] [place] [address] 00169- 5975 Nov, [facility] [id number] [place] [address] 58313- 1818 Nov, [facility] [address] [place] [address] 46889- 9539 Nov, Vascular dementia, uncomplicated 290.40 and Lumbago 724.2 [facility] [address] [place] [id number] [place] [address] 28128- 9414 Nov, [facility] [address], [place] [address]- 3579 Nov, [facility] [address] [place] [id number] [place] [address] 61395- 8343 Nov, [facility] [address], [place] [address]- 3286 Oct, [facility] [address], [place] [address]- 8779 Oct, [facility] [address], [place] [address]- 1053 Oct, [facility] [address] [place] [address] 41013- 5250 Oct, COPD (chronic obstructive pulmonary disease) 496 and Hyperlipidemia 272.4 [facility] [address], [place] [address]- 4920 Oct, Major depression, recurrent 296.30 and Anxiety, generalized 300.02 [facility] [address], [place] [address]- 5847 16 Oct, 2014 [facility] [address], [place] [address]- 7119 Oct, [facility] [address] [address]- 0165 Oct, [facility] [address], [place] [address]- 8213 Sep, Lumbago 724.2 and Anxiety state, unspecified 300.00 [facility] [address] [address]- 6426 Sep, [facility] [address], [place] [address]- 9396 Sep, [facility] [address], [place] [address]- 1987 August, [facility] [address] [address]- 6974 August, Major depression, recurrent 296.30 ; Anxiety, generalized 300.02 and No condition on Mililani II V71.09 [facility] [address] [address]- 4356 August, [facility] [address], [place] [address]- 0551 August, [facility] [address], [place] [address]- 4909 Jul, [facility] [address] [address]- 6204 Jul, [facility] [address] [address]- 3902 Jul, [facility] [address] [place] [id number] [address]- 4347 Jun, [facility] [address] [place] [id number] [place] [address]- 6379 30 Jun, 2014 [facility] [place] [facility] [address] [id number] [place] [address]- 1149 27 Jun, 2014 [facility] [place] [facility] [address] [id number] [place] [address]- 6117 27 Jun, 2014 [facility] [place] [facility] [address] [id number] [place] [address]- 4702 26 Jun, 2014 [facility] [place] [facility] [address] [id number] [place] [address]- 0853 Jun, [facility] [place] [facility] [address] [id number] [place] [address]- 0652 23 Jun, 2014 [facility] [place] [facility] [address] [id number] [place] [address] 17 Jun, 2014 [facility] [place] [facility] [address] [id number] [place] [address] Jun, [facility] [place] [facility] [address] [id number] [place] [address] 13 Jun, 2014 [facility] [place] [facility] [address] [id number] [place] [address] 10 Jun, 2014 [facility] [place] [facility] [address] [id number] [place] [address] 10 Jun, 2014 [facility] [place] [facility] [address] [id number] [place] [address] 07 Jun, 2014 [facility] [place] [facility] [address] [id number] [place] [address] Jun, [facility] [place] [facility] [address] [id number] [place] [address] Jun, [facility] [place] [facility] [address] [id number] [place] [address] Jun, [facility] [place] [facility] [address] [id number] [place] [address] May, [facility] [place] [facility] [address] [id number] [place] [address] May, 2014 [facility] [place] [facility] [address] [id number] [place] [address] 25[address] May, 2014 [facility] [place] [facility] [address] [facility] [id number] [place] [address] 25[address] May, 2014 [facility] [place] [facility] [address] [id number] [place] [address] 254 May, 2014 [facility] [place] [facility] [address] [id number] [place] [address] May, 2014 [facility] [place] [facility] [address] [facility] [id number] [place] [address]- [address] May, 2014 [facility] [place] [facility] [address] [facility] [id number] [place] [address] May, 2014 [facility] [place] [facility] [address] [facility] [id number] [place] [address]- [address] May, 2014 [facility] [place] [facility] [address] [facility] [id number] [place] [address] May, 2014 [facility] [place] [facility] [address] [facility] [id number] [place] [address] May, 2014 [facility] [place] [facility] [address] [facility] [id number] [place] [address] May, 2014 [facility] [place] [facility] [address] [facility] [id number] [place] [address] May, 2014 [facility] [place] [facility] [address] [facility] [id number] [place] [address] May, 2014 [facility] [place] [facility] [address] [facility] [id number] [place] [id number] [address] Apr, [facility] [place] [facility] [address] [facility] [id number] [place] [address]120 Apr, [facility] [place] [facility] [address] [id number] [place] [address] 9576 Apr, [facility] [place] [facility] [address] [id number] [place] [address]- 5477 Apr, [facility] [place] [facility] [address] [id number] [place] [address]- 5237 Apr, [facility] [place] [facility] [address] [id number] [place] [address]- 9928 Apr, [facility] [place] [facility] [address] [id number] [place] [address]- 6831 Apr, [facility] [place] [facility] [address] [id number] [place] [address]- 5263 Apr, [facility] [place] [facility] [address] [id number] [place] [address]- 8930 Apr, [facility] [place] [facility] [address] [id number] [place] [address]- 5349 Apr, [facility] [place] [facility] [address] [id number] [place] [address]- 5589 Apr, [facility] [place] [facility] [address] [id number] [place] [address]- 3071 Apr, [facility] [place] [facility] [address] [id number] [place] [address]- 8302 Mar, [facility] [place] [facility] [address] [id number] [place] [address]- 7054 31 Mar, 2014 [facility] [place] [facility] [address] [id number] [place] [address]- 7446 30 Mar, 2014 [facility] [place] [facility] [address] [id number] [place] [address]- 5813 Mar, [facility] [place] [facility] [address] [id number] [place] [address]- 6523 Mar, [facility] [place] [facility] [address] [id number] [place] [address]- 5181 29 Mar, 2014 [facility] [place] [facility] [address] [id number] [place] [address]- 9652 Mar, [facility] [place] [facility] [address] [id number] [place] [address]- 7266 Mar, [facility] [place] [facility] [address] [id number] [place] [address] 15 Mar, 2014 [facility] [place] [facility] [address] [id number] [place] [address]- 1110 15 Mar, 2014 [facility] [place] [facility] [address] [id number] [place] [address]- 4285 15 Mar, 2014 [facility] [place] [facility] [address] [id number] [place] [address]- 7785 Mar, [facility] [place] [facility] [address] [id number] [place] [address]- 2714 Mar, [facility] [place] [facility] [address] [id number] [place] [address]- 6081 Mar, [facility] [place] [facility] [address] [id number] [place] [address]- 1766 Mar, [facility] [place] [facility] [address] [id number] [place] [address]- 8028 Mar, [facility] [place] [facility] [address] [id number] [place] [address]- 8581 Mar, [facility] [place] [facility] [address] [id number], [place] [address] 4831 Mar, [facility] [place] [facility] [address] [id number] [place] [address]- 4820 Mar, [facility] [place] [facility] [address] [id number] [place] [address]- 3900 Mar, [facility] [place] [facility] [address] [id number] [place] [address]- 4472 Feb, [facility] [place] [facility] [address] [id number] [place] [address]- 9972 Feb, [facility] [place] [facility] [address] [id number] [place] [address]- 8002 Feb, [facility] [place] [facility] [address] [id number] [place] [address]- 0508 Feb, [facility] [place] [facility] [address] [id number] [place] [address]- 0369 Feb, [facility] [place] [facility] [address] [id number] [place] [address]- 9739 Feb, [facility] [place] [facility] [address] [id number] [place] [address]- 3279 Feb, [facility] [place] [facility] [address] [id number] [place] [address]- 9816 Feb, [facility] [place] [facility] [address] [id number] [place] [address]- 6581 Feb, [facility] [place] [facility] [address] [id number] [place] [address]- 8589 Feb, [facility] [place] [facility] [address] [id number] [place] [address]- 5702 Feb, [facility] [place] [facility] [address] [facility] [id number] [place] [address]- 4992 Feb, [facility] [place] [facility] [address] [id number] [place] [address]- 6811 Feb, [facility] [place] [facility] [address] [id number] [place] [address]- 8914 Feb, [facility] [place] [facility] [address] [id number] [place] [address]- 4182 Feb, [facility] [place] [facility] [address] [id number] [place] [address]- 0835 Feb, [facility] [place] [facility] [address] [id number] [place] [address]- 5216 Feb, [facility] [place] [facility] [address] [id number] [place] [address]- 9177 Jan, [facility] [place] [facility] [address] [id number] [place] [address]- 5063 Jan, [facility] [place] [facility] [address] [id number] [place] [address]- 9125 Jan, [facility] [place] [facility] [address] [id number] [place] [address]- 3820 Jan, [facility] [place] [facility] [address] [id number] [place] [address]- 3173 Jan, [facility] [place] [facility] [address] [id number] [place] [address]- 6191 Jan, [facility] [place] [facility] [address] [id number] [place] [address]- 6176 Jan, [facility] [place] [facility] [address] [id number] [place] [address]- 5617 Jan, [facility] [place] [facility] [address] [id number] [place] [address]- 4453 Jan, [facility] [place] [facility] [address] [id number] [place] [address]- 4531 Jan, [facility] [place] [facility] [address] [id number] [place] [address]- 7988 Jan, [facility] [place] [facility] [address] [id number] [place] [address]- 0928 Dec, [facility] [place] [facility] [address] [id number] [place] [address]- 3614 Dec, [facility] [place] [facility] [address] [id number] [place] [address]- 9033 Nov, [facility] [place] [facility] [address] [id number] [place] [address]- 4397 Nov, [facility] [place] [facility] [address] [id number] [place] [address]- 0768 Nov, [facility] [place] [facility] [address] [id number] [place] [address]- 6331 Nov, [facility] [place] [facility] [address] [id number] [place] [address]- 4079 Nov, [facility] [place] [facility] [address] [id number] [place] [address]- 5534 Nov, [facility] [place] [facility] [address] [id number] [place] [address]- 7302 Nov, [facility] [place] [facility] [address] [id number] [place] [address]- 5612 Oct, [facility] [place] [facility] [address] [id number] [place] [address]- 3434 Oct, [facility] [place] [facility] [address] [id number] [place] [address]- 2704 Oct, [facility] [place] [facility] [address] [id number] [place] [address]- 0901 Oct, [facility] [place] [facility] [address] [id number] [place] [address]- 5003 Sep, [facility] [place] [facility] [address] [id number] [place] [address]- 2433 Sep, [facility] [place] [facility] [address] [id number] [place] [address]- 9521 Sep, [facility] [place] [facility] [address] [id number] [place] [address]- 5248 Sep, [facility] [place] [facility] [address] [id number] [place] [address]- 7745 Sep, [facility] [place] [facility] [address] [id number] [place] [address]- 1852 Sep, [facility] [place] [facility] [address] [id number] [place] [address]- 6025 Sep, [facility] [place] [facility] [address] [id number] [place] [address]- 7064 Sep, [facility] [place] [facility] [address] [id number] [place] [address]- 8447 Sep, [facility] [place] [facility] [address] [id number] [place] [address]- 8953 Sep, [facility] [place] [facility] [address] [id number] [place] [address]- 4447 Sep, [facility] [place] [facility] [address] [id number] [place] [address]- 2677 Sep, [facility] [place] [facility] [address] [id number] [place] [address]- 7912 Sep, [facility] [place] [facility] [address] [id number] [place] [address]- 6759 Sep, [facility] [place] [facility] [address] [id number] [place] [address]- 3908 August, [facility] [place] [facility] [address] [id number] [place] [address]- 2687 August, [facility] [place] [facility] [address] [id number] [place] [address]- 0431 August, [facility] [place] [facility] [address] [id number] [place] [address]- 3622 August, [facility] [place] [facility] [address] [id number] [place] [address]- 3064 August, [facility] [place] [facility] [address] [id number] [place] [address]- 6641 August, [facility] [place] [facility] [address] [id number] [place] [address]- 4959 August, [facility] [place] [facility] [address] [id number] [place] [address]- 5328 August, [facility] [place] [facility] [address] [id number] [place] [address]- 4874 August, [facility] [address] [id number] [place] [address]- 0508 August, [facility] [place] [facility] [address] [id number] [place] [address]- 3108 August, [facility] [place] [facility] [address] [id number] [place] [address] August, [facility] [place] [facility] [address] [id number] [place] [address]- 6632 August, [facility] [place] [facility] [address] [id number] [place] [address]- 1227 August, [facility] [place] [facility] [address] [id number] [place] [address]- 6652 August, [facility] [place] [facility] [address] [id number] [place] [address]- 6364 August, [facility] [place] [facility] [address] [id number] [place] [address]- 2246 August, [facility] [place] [facility] [address] [id number] [place] [address]- 0262 August, [facility] [place] [facility] [address] [id number] [place] [address]- 1549 August, [facility] [place] [facility] [address] [id number] [place] [address]- 5226 Jul, [facility] [place] [facility] [address] [id number] [place] [address]- 4301 Jul, [facility] [place] [facility] [address] [id number] [place] [address]- 9667 Jul, [facility] [place] [facility] [address] [id number] [place] [address]- 8031 Jul, [facility] [place] [facility] [address] [id number] [place] [address]- 4829 Jun, [facility] [place] [facility] [address] [id number], [place] [address]- 4385 27 Jun, 2013 [facility] [place] [facility] [address] [id number] [place] [address]- 2866 24 Jun, 2013 [facility] [place] [facility] [address] [id number] [place] [address]- 7473 24 Jun, 2013 [facility] [place] [facility] [address] [facility] [id number] [place] [address]- 9756 17 Jun, 2013 [facility] [place] [facility] [address] [id number] [place] [address]- 0758 17 Jun, 2013 [facility] [place] [facility] [address] [id number] [place] [address]- 5925 Jun, [facility] [place] [facility] [address] [facility] [id number] [place] [address]- 7896 Jun, [facility] [place] [facility] [address] [facility] [id number] [place] [address]- 7948 Jun, [facility] [place] [facility] [address] [facility] [id number] [place] [address]- 1544 Jun, [facility] [place] [facility] [address] [facility] [id number] [place] [address]- 4064 May, [facility] [place] [facility] [address] [facility] [id number] [place] [address]- 6625 May, [facility] [place] [facility] [address] [facility] [id number] [place] [address]- 1684 May, [facility] [place] [facility] [address] [facility] [id number] [place] [address]- 4233 May, [facility] [place] [facility] [address] [id number] [place] [address]- 4566 May, [facility] [place] [facility] [address] [facility] [id number] [place] [address]- 5517 May, [facility] [place] [facility] [address] [facility] [id number] [place] [address]- 5770 20 May, 2013 [facility] [place] [facility] [address] [id number] [place] [address]- 1008 May, [facility] [place] [facility] [address] [id number] [place] [address]- 8946 May, [facility] [place] [facility] [address] [id number] [place] [address]- 3835 May, [facility] [place] [facility] [address] [id number] [place] [address]- 4821 May, [facility] [place] [facility] [address] [id number] [place] [address]- 7216 May, [facility] [place] [facility] [address] [id number] [place] [address]- 8562 May, [facility] [place] [facility] [address] [id number] [place] [address]- 4715 May, [facility] [place] [facility] [address] [id number] [place] [address]- 4204 May, [facility] [place] [facility] [address] [id number] [place] [address]- 5419 May, [facility] [place] [facility] [address] [id number] [place] [address]- 7800 May, [facility] [place] [facility] [address] [id number] [place] [address]- 7961 Apr, [facility] [place] [facility] [address] [id number] [place] [address]- 0001 Apr, [facility] [place] [facility] [address] [id number] [place] [address]- 7509 Apr, [facility] [place] [facility] [address] [id number] [place] [address]- 3159 Apr, [facility] [place] [facility] [address] [id number] [place] [address]- 7521 Apr, [facility] [place] [facility] [address] [id number] [place] [address]- 2546 Apr, [facility] [address] [id number] [place] [address]- 1586 Apr, [facility] [address] [id number] [place] [address]- 8046 Mar, [facility] [address] [id number] [place] [address]- 3856 Mar, [facility] [address] [id number] [place] [address]- 7016 Mar, [facility] [address] [id number] [place] [address]- 4643 Mar, [facility] [address] [id number] [place] [address]- 0036 Mar, [facility] [address] [id number] [place] [address]- 9665 Mar, [facility] [address] [id number] [place] [address]- 8092 Mar, [facility] [address] [id number] [place] [address]- 8051 Mar, [facility] [address] [id number] [place] [address]- 4310 Mar, [facility] [address] [id number] [place] [address]- 3886 Mar, [facility] [address] [id number] [place] [address]- 8286 Mar, [facility] [place] [facility] [address] [id number] [place] [address]- 2546 Feb, [facility] [address] [id number] [place] [address]- 2546 Feb, [facility] [address] [id number] [place] [address] 4842 Feb, [facility] [place] [facility] [address] [id number] [place] [address]- 4839 20 Feb, 2013 [facility] [place] [facility] [address] [id number] [place] [address]- 3753 19 Feb, 2013 [facility] [place] [facility] [address] [id number] [place] [address]- 4087 19 Feb, 2013 [facility] [place] [facility] [address] [id number] [place] [address]- 6772 15 Feb, 2013 [facility] [place] [facility] [address] [id number] [place] [address]- 1836 14 Feb, 2013 [facility] [place] [facility] [address] [id number] [place] [address]- 1231 14 Feb, 2013 [facility] [place] [facility] [address] [id number] [place] [address]- 4171 13 Feb, 2013 [facility] [place] [facility] [address] [id number] [place] [address]- 4740 13 Feb, 2013 [facility] [place] [facility] [address] [id number] [place] [address]- 5967 Feb, [facility] [place] [facility] [address] [id number], [place] [address]- 2527 Feb, [facility] [place] [facility] [address] [id number], [place] [address]- 7743 Feb, [facility] [place] [facility] [address] [id number], [place] [address]- 4615 05 Feb, 2013 [facility] [place] [facility] [address] [id number] [place] [address]- 0034 Feb, [facility] [place] [facility] [address] [id number], [place] [address]- 5508 28 Jan, 2013 [facility] [place] [facility] [address] [id number], [place] [address]- 4693 24 Jan, 2013 [facility] [place] [facility] [address] [id number] [place] [address]- 5666 Jan, [facility] [place] [facility] [address] [id number] [place] [address]- 9891 Jan, [facility] [place] [facility] [address] [id number] [place] [address]- 1268 Jan, [facility] [place] [facility] [address] [id number] [place] [address]- 3318 Jan, [facility] [place] [facility] [address] [id number] [place] [address]- 6582 Jan, [facility] [place] [facility] [address] [id number] [place] [address]- 0215 Jan, [facility] [place] [facility] [address] [id number] [place] [address]- 8251 10 Jan, 2013 [facility] [place] [facility] [address] [id number] [place] [address]- 7602 27 Dec, 2012 [facility] [place] [facility] [address] [id number] [place] [address]- 8977 20 Dec, 2012 [facility] [place] [facility] [address] [id number] [place] [address]- 2877 19 Dec, 2012 [facility] [place] [facility] [address] [id number] [place] [address]- 7247 10 Dec, 2012 [facility] [place] [facility] [address] [id number] [place] [address]- 3318 04 Dec, 2012 [facility] [place] [facility] [address] [id number] [place] [address]- 2544 Dec, 2012 [facility] [place] [facility] [address] [id number] [place] [address]- 6632 Nov, [facility] [place] [facility] [address] [id number] [place] [address]- 6533 Nov, [facility] [place] [facility] [address] [id number] [place] [address]- 8005 Nov, [facility] [place] [facility] [address] [id number] [place] [address]- 9349 Nov, [facility] [place] [facility] [address] [id number] [place] [address]- 4367 Nov, [facility] [place] [facility] [address] [id number] [place] [address]- 3251 Nov, [facility] [place] [facility] [address] [id number] [place] [address]- 7111 Nov, [facility] [place] [facility] [address] [id number] [place] [address]- 5331 Nov, [facility] [place] [facility] [address] [id number] [place] [address]- 5768 Nov, [facility] [place] [facility] [address] [id number] [place] [address]- 3280 Nov, [facility] [place] [facility] [address] [id number] [place] [address]- 5449 Oct, [facility] [place] [facility] [address] [id number] [place] [address] Oct, [facility] [place] [facility] [address] [id number] [place] [address] Oct, [facility] [place] [facility] [address] [id number] [place] [address] Oct, [facility] [place] [facility] [address] [id number] [place] [address] Oct, [facility] [place] [facility] [address] [id number] [place] [address] Oct, [facility] [place] [facility] [address] [id number] [place] [address] Oct, [facility] [place] [facility] [address] [id number] [place] [address] Oct, [facility] [place] [facility] [address] [id number] [place] [address] Sep, [facility] [address] [id number] [place] [address] Sep, [facility] [place] [facility] [address] [id number] [place] [address] Sep, [facility] [place] [facility] [address] [id number] [place] [address] Sep, [facility] [place] [facility] [address] [id number] [place] [address] Sep, [facility] [address] [id number] [place] [address] Sep, [facility] [place] [facility] [address] [id number] [place] [address] Sep, [facility] [place] [facility] [address] [id number] [place] [address] Sep, [facility] [place] [facility] [address] [id number], [place] [address] August, [facility] [place] [facility] [address] [id number] [place] [address] August, [facility] [place] [facility] [address] [id number] [place] [address] August, [facility] [place] [facility] [address] [id number], [place] [address] August, [facility] [place] [facility] [address] [id number], [place] [address] August, [facility] [place] [facility] [address] [id number] [place] [address] Jul, [facility] [place] [facility] [address] [id number], [place] [address] Jul, [facility] [place] [facility] [address] [id number] [place] [address] Jul, [facility] [place] [facility] [address] [id number] [place] [address] 04 Jul, 2012 [facility] [address] [id number] [place] [address] Jul, [facility] [place] [facility] [address] [id number] [place] [address] 18 Jun, 2012 [facility] [address] [id number] [place] [address] 18 Jun, 2012 [facility] [place] [facility] [address] [id number] [place] [address] 15 Jun, 2012 [facility] [address] [id number] [place] [address]- [address] 14 Jun, 2012 [facility] [address] [id number] [place] [address] Jun, [facility] [address] [facility] [id number] [place] [address] 08 Jun, 2012 [facility] [address] [facility] [id number] [place] [address] 08 Jun, 2012 [facility] [address] [id number] [place] [address] Jun, [facility] [address] [facility] [id number] [place] [address] Jun, [facility] [place] [facility] [address] [id number] [place] [address] 27 May, 2012 [facility] [place] [facility] [address] [id number] [place] [address] 25 May, 2012 [facility] [place] [facility] [address] [id number] [place] [address]46 20 May, 2012 [facility] [place] [facility] [address] [facility] [id number] [place] [address]46 12 May, 2012 [facility] [place] [facility] [address] [facility] [id number] [place] [address]- [address] Apr, [facility] [place] [address] [id number] [place] [address] Apr, [facility] [address] [id number] [place] [address] Apr, [facility] [address] [id number] [place] [address]- [address] Apr, [facility] [address] [id number] [place] [address] Apr, [facility] [address] [id number] [place] [address]- [address] Apr, [facility] [address] [id number] [place] [address]- [address] Apr, [facility] [place] [address] [id number] [place] [address] Mar, [facility] [address] [place] [id number] Mar, [facility] [place] [address] [id number] [place] [address] Mar, [facility] [place] [address] [id number] [place] [address] Mar, [facility] [place] [address] [id number] [place] [address] Mar, [facility] [address] [id number] [place] [address] Mar, [facility] [address] [id number] [place] [address] Mar, [facility] [address] [id number] [place] [address]843 Mar, [facility] [address] [id number] [place] [address]- 74[address] Mar, [facility] [address] [id number] [place] [address]- [address] Mar, [facility] [place] [facility] [address] [id number] [place] [address] 12[address] Mar, [facility] [place] [facility] [address] [id number] [place] [address] Mar, [facility] [place] [facility] [address] [facility] [id number] [place] [address] Mar, [facility] [place] [facility] [address] [id number] [place] [address] Mar, [facility] [place] [facility] [address] [id number] [place] [address] Mar, [facility] [place] [facility] [address] [id number] [place] [address] 114[address] Mar, [facility] [place] [facility] [address] [id number] [place] [address] 9256 Mar, [facility] [place] [facility] [address] [id number] [place] [address] 2583 Feb, [facility] [place] [facility] [address] [id number] [place] [address]- 46[address] Feb, [facility] [place] [facility] [address] [id number] [place] [address] 2232 Feb, [facility] [place] [facility] [address] [id number], [place] [address] 3[address] Feb, [facility] [place] [facility] [address] [id number], [place] [address] 6679 Feb, [facility] [place] [facility] [address] [id number], [place] [address] 6[address] Feb, [facility] [place] [facility] [address] [id number], [place] [address] 9[address] Feb, [facility] [place] [facility] [address] [id number], [place] [address] 1414 Feb, [facility] [place] [facility] [address] [id number] [place] [address]- [address] 16 Feb, 2012 [facility] [place] [facility] [address] [id number] [place] [address]- 3[address] 16 Feb, 2012 [facility] [place] [facility] [address] [id number] [place] [address]- 0816 Feb, [facility] [place] [facility] [address] [id number] [place] [address]- 1368 Feb, [facility] [place] [facility] [address] [id number] [place] [address] 5931 Feb, [facility] [place] [facility] [address] [id number] [place] [address], [place] [address]- 6179 Feb, [facility] [place] [facility] [address] [id number] [place] [address]- 8847 Feb, [facility] [place] [facility] [address] [facility] [id number] [place] [address]- 67[address] Feb, [facility] [place] [facility] [address] [id number] [place] [address]- 3414 Jan, [facility] [place] [facility] [address] [id number] [place] [address]- 2975 Jan, [facility] [place] [facility] [address] [facility] [id number] [place] [address]- 6767 Jan, [facility] [place] [facility] [address] [id number] [place] [address]- 0839 Jan, [facility] [place] [facility] [address] [facility] [id number], [place] [address] 75[address] Jan, [facility] [place] [facility] [address] [id number] [place] [address]- 1092 Jan, [facility] [place] [facility] [address] [facility] [id number] [place] [address]- 2046 Jan, [facility] [place] [facility] [address] [id number] [place] [address]- 4134 Jan, [facility] [place] [facility] [address] [id number] [place] [address] 4524 17 Jan, 2012 [facility] [place] [facility] [address] [id number] [place] [address]- 5422 17 Jan, 2012 [facility] [place] [facility] [address] [id number] [place] [address] 9603 Jan, [facility] [place] [facility] [address] [id number] [place] [address]- 0629 Jan, [facility] [place] [facility] [address] [id number] [place] [address]- 5160 Jan, [facility] [place] [facility] [address] [id number] [place] [address]- 0655 Jan, [facility] [place] [facility] [address] [id number] [place] [address]- 49[address] 08 Jan, 2012 [facility] [place] [facility] [address] [id number] [place] [address]- 5857 05 Jan, 2012 [facility] [place] [facility] [address] [id number] [place] [address]- 1730 04 Jan, 2012 [facility] [place] [facility] [address] [id number] [place] [address]- 9625 21 Dec, 2011 [facility] [place] [facility] [address] [id number] [place] [address]- 4946 20 Dec, 2011 [facility] [place] [facility] [address] [id number], [place] [address] 18 Sep, 2011 [facility] [place] [facility] [address] [id number] [place] [address]- 1521 18 Sep, 2011 [facility] [place] [facility] [address] [id number] [place] [address]- 1529 10 Dec, 2011 [facility] [place] [facility] [address] [id number], [place] [address]- 8[address] 10 Dec, 2011 [facility] [place] [facility] [address] [id number], [place] [address]- 1360 Dec, [facility] [place] [facility] [address] [id number] [place] [address]- 2156 Dec, [facility] [place] [facility] [address] [id number] [place] [address]- 2496 Nov, [facility] [place] [facility] [address] [id number] [place] [address]- 9776 Nov, [facility] [place] [facility] [address] [id number] [place] [address]- 3152 Nov, [facility] [place] [facility] [address] [id number] [place] [address]- 7656 Nov, [facility] [place] [facility] [address] [id number] [place] [address]- 7171 Nov, [facility] [place] [facility] [address] [id number] [place] [address]- 7782 Nov, [facility] [place] [facility] [address] [id number] [place] [address]- 0391 Oct, [facility] [place] [facility] [address] [id number] [place] [address]- 1117 Oct, [facility] [place] [facility] [address] [id number] [place] [address]- 5955 Oct, [facility] [place] [facility] [address] [id number] [place] [address]- 8008 Oct, [facility] [place] [facility] [address] [id number] [place] [address]- 6506 Oct, [facility] [place] [facility] [address] [id number] [place] [address]- 0136 Oct, [facility] [place] [facility] [address] [id number] [place] [address]- 6314 Oct, [facility] [place] [facility] [address] [id number] [place] [address]- 8967 Sep, [facility] [place] [facility] [address] [id number] [place] [address]- 1764 25 Sep, 2011 [facility] [place] [facility] [address] [id number] [place] [address]- 4584 Sep, [facility] [place] [facility] [address] [id number] [place] [address]- 0676 20 Sep, 2011 [facility] [place] [facility] [address] [id number] [place] [address]- 5485 19 Sep, 2011 [facility] [place] [facility] [address] [id number] [place] [address]- 1706 15 Sep, 2011 [facility] [place] [facility] [address] [id number] [place] [address]- 9145 14 Sep, 2011 [facility] [place] [facility] [address] [id number] [place] [address]- 5193 Sep, [facility] [place] [facility] [address] [id number] [place] [address]- 2590 05 Sep, 2011 [facility] [place] [facility] [address] [id number] [place] [address]- 0580 04 Sep, 2011 [facility] [place] [facility] [address] [id number] [place] [address]- 9056 August, [facility] [place] [facility] [address] [id number] [place] [address]- 5871 August, [facility] [place] [facility] [address] [id number] [place] [address]- 1322 August, [facility] [place] [facility] [address] [id number] [place] [address]- 7733 August, [facility] [place] [facility] [address] [id number] [place] [address] August, [facility] [place] [facility] [address] [id number] [place] [address]- 5838 Jul, [facility] [place] [facility] [address] [id number] [place] [address]- 7897 Jul, [facility] [place] [facility] [address] [id number] [place] [address]- 7679 Jul, [facility] [place] [facility] [address] [id number] [place] [address]- 4869 Jul, [facility] [place] [facility] [address] [id number] [place] [address]- 2946 Jul, [facility] [place] [facility] [address] [id number] [place] [address]- 1068 Jul, [facility] [place] [facility] [address] [id number] [place] [address]- 4113 Jul, [facility] [place] [facility] [address] [id number] [place] [address]- 0652 Jun, [facility] [place] [facility] [address] [facility] [id number] [place] [address]- 4620 Jun, [facility] [place] [facility] [address] [id number] [place] [address]- 2805 Jun, [facility] [place] [facility] [address] [id number] [place] [address]- 2519 Jun, [facility] [place] [facility] [address] [facility] [id number] [place] [address]- 3058 Jun, [facility] [place] [facility] [address] [id number] [place] [address]- 9184 May, [facility] [place] [facility] [address] [id number] [place] [address]- 6339 May, [facility] [place] [facility] [address] [id number] [place] [address]- 3742 May, [facility] [place] [facility] [address] [id number] [place] [address]- 4477 May, [facility] [place] [facility] [address] [facility] [id number] [place] [address]- 5031 May, [facility] [place] [facility] [address] [id number] [place] [address]- 6968 May, [facility] [address] [id number] [place] [address]- 4174 Apr, [facility] [place] [facility] [address] [id number] [place] [address]- 8646 Mar, [facility] [address] [id number] [place] [address]- 2541 Feb, [facility] [place] [facility] [address] [id number] [place] [address]- 1252 Feb, [facility] [address] [id number] [place] [address], [place] [address]- 8698 Feb, [facility] [place] [facility] [address] [id number] [place] [address]- 8209 Feb, [facility] [address] [id number] [place] [address], [place] [address]- 4737 Jan, [facility] [address] [id number] [place] [address]- 4217 Jan, [facility] [place] [facility] [address] [facility] [id number] [place] [address]- 4367 Jan, [facility] [address] [facility] [id number] [place] [address]- 6326 Jan, [facility] [place] [facility] [address] [id number] [place] [address]- 9895 Jan, [facility] [place] [facility] [address] [id number] [place] [address]- 7572 Dec, [facility] [place] [facility] [address] [id number] [place] [address]- 3205 Oct, [facility] [place] [facility] [address] [id number] [place] [address]- 3727 August, [facility] [place] [facility] [address] [id number] [place] Mar, [facility] [place] [facility] [address] [id number] [place] [address]- 9068 27 Mar, 2010 [facility] [place] [facility] [address] [id number] [place] [address]- 2566 16 Mar, 2010 [facility] [place] [facility] [address] [id number] [place] [address]- 8104 15 Mar, 2010 [facility] [place] [facility] [address] [id number] [place] [address]- 5895 15 Mar, 2010 [facility] [place] [facility] [address] [id number] [place] [address]- 1961 08 Mar, 2010 [facility] [place] [facility] [address] [id number] [place] [address]- 0390 Mar, [facility] [place] [facility] [address] [id number] [place] [address]- 7858 Feb, [facility] [place] [facility] [address] [id number], [place] [address]- 3683 Feb, [facility] [place] [facility] [address] [id number] [place] [address]- 5165 Feb, [facility] [place] [facility] [address] [facility] [id number], [place] [address]- 7917 Jan, [facility] [place] [facility] [address] [id number], [place] [address]- 6757 Jan, [facility] [place] [facility] [address] [id number], [place] [address]- 1111 Jan, [facility] [place] [facility] [address] [id number], [place] [address]- 3072 Nov, [facility] [place] [facility] [address] [id number], [place] [address]- 5984 14 Sep, 2009 [facility] [place] [facility] [address] [id number] 4471 August, [facility] [place] [facility] [address] [id number], [place] [address] 1936 30 Mar, 2009 [facility] [address] [facility] [id number], [place] [address]- 5294 Mar, [facility] [address] [id number], [place] [address]- 0098 17 Feb, 2009 [facility] [address]00565100[place], [place] [address]- 5262 Feb, [facility] [address] [facility] [id number], [place] [address]- 0305 10 Feb, 2009 [facility] [id number] [place] [address]- 5166 Feb, [facility] [address] [id number], [place] [address]- 4838 Feb, [facility] [id number] [place] [address]- 6043 Jan, [facility] [address]00565100[place], [place] [address]- 0427 Jan, [facility] [address]00565100[place], [place] [address]- 7944 Jan, [facility] [address]00565100[place], [place] [address]- 9404 Jan, [facility] [address]00565100[place], [place] [address]- 7517 Nov, [facility] [address] [id number], [place] [address]- 5731 Sep, [facility] [address] [id number], [place] [address]- 9466 August, [facility] [address] [id number], [place] [address]- 9402 14 Jul, 2008 [facility] [address]00565100[place], [place] [address]- 8389 May, IMMUNIZATIONS No Known Immunizations SOCIAL HISTORY Never Assessed REASON FOR VISIT 3 month f/rob Gold MA PLAN OF CARE Activity Details Follow Up 3 Months Reason: VITAL SIGNS Height 64 in 2018-02-20 Blood pressure systolic 120 mmHg 2018-02-20 Blood pressure diastolic 70 mmHg 2018-02-20 MEDICATIONS Unknown Medications RESULTS No Results PROCEDURES Procedure Date Ordered Result Body Site DEBRIDE NAIL, 6 OR MORE Feb 20, 2018 [facility] VISIT ESTABLISHED PATIENT Feb 20, 2018 INSTRUCTIONS MEDICATIONS ADMINISTERED No Known Medications MEDICAL [...] Knee Surgery 07/16/17 Hospitalization History [facility] Cord- left hand/wrist swelling 10/09/2017
[2018-05-14] MEDS ORDERED: VENL75CA93 PO (08:28)
[2018-05-14] MEDS ORDERED: CALC-823 PO (08:28)
[2018-05-14] MEDS ORDERED: RIFA550T PO (08:28)
[2018-05-14] MEDS ORDERED: LEVO5TAB12 PO (08:28)
[2018-05-14] MEDS ORDERED: FURO20TA4 PO (08:28)
[2018-05-14] MEDS ORDERED: EREN70AU INJ (08:28)
[2018-05-14 08:40] VITALS: BP 113/68
--- NOTE | 2018-05-14 09:11 | Diagnostic Imaging Report ---
INDICATION: Post bronchoscopy surveillance. COMPARISON: 08/25/2017. FINDINGS: No pleural effusion or pneumothorax. Heart is normal in size. Visualized lungs are clear. Partially visualized ACDF. IMPRESSION: No complication status post bronchoscopy. Dictated by: Dictated on workstation # [id number]
[2018-05-14 09:30] VITALS: BP 113/68
--- NOTE | 2018-05-14 09:58 | Diagnostic Imaging Report ---
INDICATION: Fluoroscopy for bronchoscopy. FINDINGS: Fluoroscopy was provided for Dr. Lawson during a bronchoscopy. 13 seconds of fluoroscopy was utilized. IMPRESSION: Fluoroscopy for bronchoscopy. Dictated by: Dictated on workstation # [id number]
--- NOTE | 2018-05-14 12:27 | Pulmonary Procedures ---
Pulmonary Procedures Date of Procedure Date of Service: May 14, 2018 Bronch Bronchoscopy with fluoroscopy RML bronchoalveolar lavage (BAL), washes and, transbronchial brushes. Preop DX ILD Postop DX: same Complications: none After informed consent obtained and formal time out pt was sedated per anesthesia. Bronchoscope was advanced through the nare and vocal cords. 1% lidocaine was used to anesthetize vocal cords, epiglottis, diana, and left/ right main stem bronchus. An anatomical tour was undertaken down to the segmental bronchi bilaterally. No endobronchial lesions noted. Bronchoscopy with fluoroscopy RML bronchoalveolar lavage (BAL), washes and, transbronchial brushes. were obtained. Pt tolerated procedure well. No complications noted. Stat CXR is pending. AYAZ LUCIANO DO May 14, 2018 12:27
[2018-05-21] MEDS ORDERED: RANI300T4 PO ×2 (14:55)
[2018-05-21] MEDS ORDERED: CLON1TAB13 PO ×2 (14:55)
[2018-05-21] MEDS ORDERED: PRD10T PO ×2 (14:55)
[2018-05-21] MEDS ORDERED: OXYB5TAB9 PO ×2 (14:55)
[2018-05-21] MEDS ORDERED: SUCR1TAB PO ×2 (14:55)
[2018-05-21] MEDS ORDERED: ALBU18HF2 INH ×2 (14:55)
[2018-05-21] MEDS ORDERED: SUMA100T3 PO ×2 (14:55)
[2018-05-21] MEDS ORDERED: TIZA2TAB3 PO ×2 (14:55)
[2018-05-21] MEDS ORDERED: GABA-490 PO ×2 (14:55)
[2018-05-21] MEDS ORDERED: PANT40TA3 PO ×2 (14:55)
[2018-05-21] MEDS ORDERED: DILT240C90 PO ×2 (14:55)
[2018-05-21] MEDS ORDERED: DAPA5TAB PO ×2 (14:55)
[2018-05-21] MEDS ORDERED: LAMO25TA PO ×2 (14:55)
[2018-05-21] MEDS ORDERED: OMEP40CA36 PO ×2 (15:09)
[2018-05-21] MEDS ORDERED: TRAZ-190 PO ×2 (15:09)
== END 2018-05-14 09:30 | disposition home or self-care (01) ==
LOC: ENDO 07:14
PROVIDERS: ATTEND Internal Medicine Critical Care Medicine
DX: J84.9 Interstitial pulmonary disease, unspecified (principal); J44.9 Chronic obstructive pulmonary disease, unspecified; R06.02 Shortness of breath; I10 Essential (primary) hypertension; I25.10 Atherosclerotic heart disease of native coronary artery without angina pectoris; I48.91 Unspecified atrial fibrillation; I73.9 Peripheral vascular disease, unspecified; E11.40 Type 2 diabetes mellitus with diabetic neuropathy, unspecified; K21.9 Gastro-esophageal reflux disease without esophagitis; F41.9 Anxiety disorder, unspecified; F32.9 Major depressive disorder, single episode, unspecified; R53.83 Other fatigue; F17.210 Nicotine dependence, cigarettes, uncomplicated; Z79.01 Long term (current) use of anticoagulants; Z79.52 Long term (current) use of systemic steroids; Z79.899 Other long term (current) drug therapy
CPT/HCPCS: 71045; 82962; 87015; 87070; 87077; 87101; 87116; 87186; 87205; 87206; 88112; 88305; 88312

== ENCOUNTER 2018-05-20 08:58 | Outpatient (CLI) | payer MEDICARE, MEDICAID ==
[~2018-05-20] VITALS: Ht 160 cm; Wt 78.5 kg
[~2018-05-20 08:58] MED LIST changes: +CALC-823 PO; +EREN70AU INJ; +LEVO5TAB12 PO; +VENL75CA93 PO
[2018-05-20 09:18] VITALS: BP 102/71
[2018-05-20 09:58] LABS: BILIRUBIN,URINE NEGATIVE (NEGATIVE); CLARITY,URINE CLEAR; COLOR,URINE YELLOW; GLUCOSE, URINE (UA) 4+ (NEGATIVE); KETONES,URINE NEGATIVE (NEGATIVE); LEUKOCYTE ESTERASE ,URINE 1+ (NEGATIVE); NITRITE,URINE NEGATIVE (NEGATIVE); PH,URINE 7 (5-9); PROTEIN,URINE 1+ (NEGATIVE); UROBILINOGEN,URINE NORMAL (NORMAL)
[2018-05-20 09:58] LABS: BASOPHILS % (AUTO) 0 % (0-10); EOSINOPHILS # (AUTO) 0.1 10^3/uL (0.0-0.3); EOSINOPHILS % (AUTO) 2 % (0-10); HEMATOCRIT 42 % (35-52); HEMOGLOBIN 13.5 G/DL (11.5-16.0); LYMPHOCYTES # (AUTO) 1.4 X 10^3 (1.0-4.0); LYMPHOCYTES % (AUTO) 21 % (12-44); MEAN CORPUSCULAR HEMOGLOBIN 27 PG (25-34); MEAN CORPUSCULAR HGB CONC 32 G/DL (32-36); MEAN CORPUSCULAR VOLUME 85 FL (80-99); MONOCYTES # (AUTO) 0.5 X 10^3 (0.0-1.0); MONOCYTES % (AUTO) 8 % (0-12); NEUTROPHILS # (AUTO) 4.7 X 10^3 (1.8-7.8); NEUTROPHILS % (AUTO) 70 % (42-75); PLATELET COUNT 266 10^3/uL (130-400); WHITE BLOOD COUNT 6.8 10^3/uL (4.3-11.0)
[2018-05-20 10:12] LABS: RBC,URINE 0-2 /HPF
[2018-05-20 10:13] LABS: BACTERIA,URINE FEW /HPF
[2018-05-20 10:23] LABS: ALANINE AMINOTRANSFERASE 14 U/L (0-55); ALBUMIN 4.2 GM/DL (3.2-4.5); ALKALINE PHOSPHATASE 88 U/L (40-136); BILIRUBIN,TOTAL 0.3 MG/DL (0.1-1.0); BUN/CREATININE RATIO 13; CALCIUM 9.5 MG/DL (8.5-10.1); CARBON DIOXIDE 23 MMOL/L (21-32); CHLORIDE 103 MMOL/L (98-107); CREATININE SERUM 0.71 MG/DL (0.60-1.30); GFR ESTIMATED > 60; GLUCOSE 135 MG/DL (70-105); POTASSIUM 4.2 MMOL/L (3.6-5.0); SODIUM 137 MMOL/L (135-145)
[2018-05-20 10:30] LABS: INR 0.9 (0.8-1.4); PROTHROMBIN TIME PATIENT 12.2 SEC (12.2-14.7)
[2018-05-20 10:37] LABS: ERYTHROCYTE SEDIMENTATION RATE 10 MM/HR (0-30)
[2018-05-21] MEDS ORDERED: PANT40TA3 PO (14:55)
[2018-05-21] MEDS ORDERED: DILT240C90 PO (14:55)
[2018-05-21] MEDS ORDERED: SUCR1TAB PO (14:55)
[2018-05-21] MEDS ORDERED: CLON1TAB13 PO (14:55)
[2018-05-21] MEDS ORDERED: SUMA100T3 PO (14:55)
[2018-05-21] MEDS ORDERED: DAPA5TAB PO (14:55)
[2018-05-21] MEDS ORDERED: OXYB5TAB9 PO (14:55)
[2018-05-21] MEDS ORDERED: BACL20TA PO (14:55)
[2018-05-21] MEDS ORDERED: TIZA2TAB3 PO (14:55)
[2018-05-21] MEDS ORDERED: PRD10T PO (14:55)
[2018-05-21] MEDS ORDERED: ALBU18HF2 INH (14:55)
[2018-05-21] MEDS ORDERED: RANI300T4 PO (14:55)
[2018-05-21] MEDS ORDERED: GABA-490 PO (14:55)
[2018-05-21] MEDS ORDERED: LAMO25TA PO (14:55)
[2018-05-21] MEDS ORDERED: OMEP40CA36 PO (15:09)
[2018-05-21] MEDS ORDERED: TRAZ-190 PO (15:09)
== END 2018-05-20 09:48 | disposition home or self-care (01) ==
LOC: PREOP 08:58
PROVIDERS: ATTEND Orthopaedic Surgery
DX: Z01.812 Encounter for preprocedural laboratory examination (principal); Z11.2 Encounter for screening for other bacterial diseases; M17.11 Unilateral primary osteoarthritis, right knee; R53.83 Other fatigue; R82.90 Unspecified abnormal findings in urine
CPT/HCPCS: 36415; 80053; 81000; 85025; 85610; 85652; 86850; 86900; 86901; 87081; 87088

== ENCOUNTER 2018-05-27 06:10 | Inpatient (IN) | payer MEDICARE, MEDICAID ==
--- NOTE | 2018-05-18 08:59 | HISTORY AND PHYSICAL ---
DATE OF SERVICE: ADMISSION HISTORY AND PHYSICAL DATE OF ADMISSION AND SURGERY: 05/27/2018. This will be for inpatient admission on 05/27/2018 for right total knee arthroplasty. She will require regular inpatient admission due to her comorbidities, pain management issues, gait abnormalities and weakness. HISTORY OF PRESENT ILLNESS: The patient is a 62-year-old female with progressively worsening right knee pain. Radiographs revealed severe medial and patellofemoral arthrosis. She has undergone treatment with injections, anti-inflammatories and rest without relief. She reports progressively worsening symptoms and failure to improve with conservative measures. She underwent left total knee arthroplasty with good results. She does have lumbar disk disease and she understands that this will not cure her lumbar problem. REVIEW OF SYSTEMS: No chest pain and shortness of breath. No dysuria. PAST MEDICAL HISTORY: Diabetes mellitus, cervical disk disease, deep venous thrombosis, osteoporosis, atrial fibrillation, RLS, anxiety, scoliosis, cubital tunnel, lumbar stenosis and osteoarthritis. PAST SURGICAL HISTORY: Cardiac ablation, cholecystectomy, thumb, hernia, left elbow, right elbow, right wrist, cervical and left total knee arthroplasty. FAMILY HISTORY: Significant for osteoporosis, hypertension, diabetes and cancer. PRIMARY CARE PROVIDER: [facility]. MEDICATIONS: 1. Hydrocodone. 2. Lomotil. 3. Brintellix. 4. Baclofen. 5. Eliquis. 6. Primidone. 7. Vitamin D. 8. Xifaxan. 9. Ventolin. 10. Spiriva. 11. Fosamax. 12. Protonix. 13. Myrbetriq. 14. Cartia. 15. Toprol. 16. Gabapentin. 17. Hydroxyzine. 18. Singulair. 19. Simvastatin. 20. Trazodone. 21. Donepezil. 22. Requip. 23. Namenda. 24. Symbicort. 25. Magnesium. 26. Valium. ALLERGIES: PENICILLIN, IBUPROFEN, IV DYE and TRIPLE ANTIBIOTIC. SOCIAL HISTORY: The patient smokes half a pack of cigarettes per day. Denies alcohol use. PHYSICAL EXAMINATION: GENERAL: The patient is well developed and well nourished, in no acute distress. HEENT: Head is normocephalic and atraumatic. Pupils are equal, round and reactive to light. Oropharynx is clear. NECK: Supple. No lymphadenopathy. LUNGS: Clear to auscultation bilaterally. HEART: Regular rate and rhythm. ABDOMEN: Soft, nontender and nondistended. EXTREMITIES: Right knee demonstrates a mild effusion with no erythema or warmth. She has no skin lesions. She ambulates with an antalgic gait. She is tender along the medial femoral condyle and has pain with patellar loading. Range of motion is 0/2/120. IMPRESSION: Severe right knee osteoarthritis, unresponsive to conservative measures. PLAN: Right total knee arthroplasty. The risks, benefits, options, ramifications and recovery have been discussed at length with the patient. She understands and wishes to proceed. Job ID: [id number] DocumentID: [id number] Dictated Date: 05/18/2018 08:14:13 Digital Design Engineer Date: 05/18/2018 08:58:05 Dictated By: ERIC BROOKE MD
--- NOTE | 2018-05-21 15:14 | NUR ---
PATIENT BROUGHT IN A LIST OF MEDICATIONS TO PREOP, I COMPARED THAT LIST WITH THE EXT MED HX. THERE WERE A FEW DIFFERENCES NOTED SO I CALLED THE PATIENT FOR CLARIFICATION. SHE STATES SHE HAS A WORKER WHO SETS UP HER MEDS FOR HER AND ASKED ME TO CALL HER. I CALLED CHIARA AT [phone] AND SHE VERIFIED THE DISCREPANCIES. CHIARA STATES THE PATIENT HAD SEVERAL PRESCRIBING DR.'S WELL USED MULTIPLE PHARMACIES SO THEY ARE TRYING TO CONDENSE THEM ALL TO ONE PRESCRIBER AND ONE PHARMACY BUT THIS IS WHY THERE IS SOME CONFLICTING INFORMATION. SHE HAS FILLED TRAZODONE 150MG AND TRAZODONE 100MG. CHIARA STATES HER CURRENT DOES IS 2 OF THE 100MG TABS AT BEDTIME. HER PRIMIDONE IS PRESCRIBED Q8H HOWEVER THE PATIENT DOES NOT TAKE IT DURING THE NIGHT SO SHE ONLY TAKES IT BID. SHE FILLED BACLOFEN BUT IT HAS BEEN REPLACED BY THE [facility].
[~2018-05-27] VITALS: Ht 160 cm; Wt 79.0 kg
[~2018-05-27 06:10] MED LIST changes: +ALBU18HF2 INH; +CLON1TAB13 PO; +DAPA5TAB PO; +GABA-490 PO; +OXYB5TAB9 PO; +PANT40TA3 PO; +RANI300T4 PO; +SUMA100T3 PO; +TIZA2TAB3 PO; +TRAZ-190 PO
[2018-05-27] MEDS ORDERED: LACTATED RINGERS 1,000 ML IV PRN (06:23)
[2018-05-27] MEDS ORDERED: CEFUROXIME INJECTION 1,500 MG in WATER (STERILE) FOR INJECTION 15 ML IV ONE (06:30)
[2018-05-27 06:35] VITALS: BP 120/76
[2018-05-27] MEDS ORDERED: CATHETER FLUSH 10 ML SYR IV PRN (06:45)
[2018-05-27] MEDS ORDERED: RT-ALBUTEROL SULF 2.5 MG/3 ML PRE-MIX VIAL ONE (06:52)
[2018-05-27] MEDS ORDERED: fentaNYL INJECTION 100 MCG/2 ML AMP ONE ×2 (06:55→08:01)
[2018-05-27] MEDS ORDERED: LIDOCAINE PF 2% 5 ML (XYLOCAINE) VIAL ONE (06:55)
[2018-05-27] MEDS ORDERED: SEVOFLURANE (ULTANE) 15 ML INHAL SOLN ONE (06:55)
[2018-05-27] MEDS ORDERED: ONDANSETRON 4 MG/2 ML (SDV) Z0FRAN ONE (06:55)
[2018-05-27] MEDS ORDERED: proPOfol 200 MG/20 ML (DIPRIVAN) VIAL IV ONE (06:55)
[2018-05-27] MEDS ORDERED: MIDAZOLAM 2 MG/2 ML (VERSED) VIAL ONE (06:56)
[2018-05-27] MEDS ORDERED: CEFD300C3 PO ×2 (06:57)
[2018-05-27] MEDS ORDERED: HYDROCORTISONE 100 MG/2 ML (Solu-CORTEF) VIAL ONE (06:59)
[2018-05-27] MEDS ORDERED: TRANEXAMIC ACID 100 MG/ML 10 ML INJECTION IV ONE (06:59)
[2018-05-27] MEDS ORDERED: BUPIVACAINE 0.5% 30 ML (SENSORCAINE) VIAL ONE (07:00)
[2018-05-27] MEDS ORDERED: FAMOTIDINE 20MG/2ML IV (PEPCID) IV ONE (07:00)
[2018-05-27] MEDS ORDERED: RT-ALBUTEROL SULF 2.5 MG/3 ML PRE-MIX VIAL INH ONE (07:00)
[2018-05-27] MEDS ORDERED: ACETAMINOPHEN 325 MG TABLET PO PRN (07:15)
[2018-05-27] MEDS ORDERED: ONDANSETRON 4 MG/2 ML (SDV) Z0FRAN IVP PRN ×2 (07:15→09:00)
[2018-05-27] MEDS ORDERED: diphenhydrAMINE 50 MG/ML INJ (BENADRYL) IVP PRN (07:15)
[2018-05-27] MEDS ORDERED: morphine PCA 100 MG/100 ML BAG IV PRN (07:15)
--- NOTE | 2018-05-27 07:24 | Progress Note-Pre Operative ---
Pre-Operative Progress Note H&P Reviewed The H&P was reviewed, patient examined and no changes noted. Date Seen by Provider: May 27, 2018 Time Seen by Provider: 07:11 Date H&P Reviewed: May 27, 2018 Time H&P Reviewed: 07:11 Pre-Operative Diagnosis: right knee primary osteoarthritis ERIC BROOKE MD May 27, 2018 07:24
--- NOTE | 2018-05-27 07:25 | Progress Note-Post Operative ---
Post-Operative Progess Note Surgeon (s)/Fieldwork Coordinator (s) Surgeon ERIC BROOKE MD Fieldwork Coordinator: Paresh Harrison Pre-Operative Diagnosis right knee primary osteoarthritis Post-Operative Diagnosis right knee primary osteoarthritis Procedure & Operative Findings Date of Procedure 05/27/18 Procedure Performed/Findings right total knee arthroplasty Anesthesia Type GETA Estimated Blood Loss Estimated blood loss (mL): minimal Specimens/Packing Specimens Removed none Packing: none ERIC BROOKE MD May 27, 2018 07:25
[2018-05-27] MEDS ORDERED: OXYC1TAB87 PO ×2 (07:27)
[2018-05-27] MEDS ORDERED: INTRA-ARTICULAR IU ONE ×5 (07:30)
--- NOTE | 2018-05-27 07:30 | D/C HH Face to Face Order ---
D/C Face to Face Orders Instructions for Patient Via [facility], Patient Instructions/FollowUp: three weeks Physician to follow Patient: three weeks Discharge Diet for Home: Regular Diet Patient Data-Allergies,Ht & Wt Patient Allergies: Coded Allergies: bacitracin (Verified Allergy, Intermediate, "I BREAK OUT IN A RASH ALL OVER.", 02/09/18) neomycin (Verified Allergy, Intermediate, "I BREAK OUT IN A RASH ALL OVER. ", 02/09/18) polymyxin B (Verified Allergy, Intermediate, "I BREAK OUT IN A RASH ALL OVER.", 02/09/18) ibuprofen (Verified Allergy, Mild, RASH, 02/09/18) naproxen (Verified Allergy, Mild, RASH, 02/09/18) Height (Feet): 5 Height (Inches): 3.00 Weight (Pounds): 173 Weight (Ounces): 0.0 Home Health Need/Face to Face Date of Face to Face: May 27, 2018 Clinical Findings: Instability, Muscle weakness, Pain with ambulation, Unsteady gait I have seen Pt [id number]: Yes Discharged To: Home Diagnosis/Conditions: right total knee arthroplasty Patient is Homebound due to: Vivian fall risk due to instabilty, Muscle weakness , Pain w/ambulation Homebound Status Due to the above stated illness, injury or surgical procedure (medical condition or diagnosis) and associated clinical findings, the patient is homebound because of his/her inability to leave home except with aid of a supportive device and/or person AND leaving the home requires a considerable and taxing effort or is medically contraindicated. Pt req the following assistanc: [facility] Nursing Orders Home Health Services Order: Physical Therapy-Evaluate & Treat DC right knee mario and apply steri strips 06/10/18 Home Health Infusion Therapy Line Start Date: May 27, 2018 Line Start Time: 0630 Line Type: Saline Lock Site Location: Forearm Therapy Orders Therapy Orders: Physical Therapy, PT to assess for OT Therapy Specific Orders: Eval assistive deivces, Teach enviro modifications/ safety, Gait training, Increase strength/endurance, Provider maintenance therapy , Restore ROM Certify Stmt I certify that this patient is under my care and that I, a nurse practitioner or a physician; a compounding assistant working with me, had a face to face encounter that - meets the physician face to face encounter requirements with this patient as dated. ERIC BROOKE MD May 27, 2018 07:30
[2018-05-27] MEDS ORDERED: HYDROmorphone 2 MG/ML VIAL (DILAUDID) IV ONE (09:00)
[2018-05-27] MEDS ORDERED: morphine INJ 10 MG/ML 1ML (SYR OR VIAL) IVP ONE (09:00)
[2018-05-27] MEDS ORDERED: morphine INJ 10 MG/ML 1ML (SYR OR VIAL) ONE (09:12)
[2018-05-27 09:55] VITALS: BP 107/68
[2018-05-27] MEDS: NS IV 1000 ML 1,000 ML IV SCH ×2 (10:29→22:50)
[2018-05-27] MEDS: oxyCODONE/APAP 5/325MG (PERCOCET 5) TABLET PO PRN ×3 (10:29→22:12)
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
--- NOTE | 2018-05-27 11:28 | Diagnostic Imaging Report ---
INDICATION: Postoperative. TECHNIQUE: 2 post operative radiographs of the knee CORRELATION STUDY: None FINDINGS: There are postsurgical changes of a total knee arthroplasty. Alignment is anatomic. Installed hardware appearing unremarkable. There is noted somewhat elongated tubular shaped lucency through both the distal femur and proximal tibia. Overlying soft tissue gas collections and skin mario are present. IMPRESSION: Postsurgical changes of a total knee replacement. Dictated by: Dictated on workstation # [id number]
--- NOTE | 2018-05-27 11:44 | Progress Note-Standard ---
Standard Progress Note Progress Notes/Assess & Plan Date Seen by a Provider: May 27, 2018 Time Seen by a Provider: 11:42 Progress/Assessment & Plan no complaints radiographs--HW well positioned without fracture RLE--brisk cap refill with equal pulses sensation intact throughout intact DF and PF of toes and ankle s/p RTKA mobilize as able ERIC BROOKE MD May 27, 2018 11:43
[2018-05-27 12:59] VITALS: BP 111/56
--- NOTE | 2018-05-27 13:31 | OPERATIVE REPORT ---
DATE OF SERVICE: 05/27/2018 PREOPERATIVE DIAGNOSIS: Right knee primary osteoarthritis. POSTOPERATIVE DIAGNOSIS: Right knee primary osteoarthritis. PROCEDURE: Right total knee arthroplasty. SURGEON: Albert Brooke MD. COMPRESSOR STATION CHIEF ENGINEER: Paresh Harrison, who assisted throughout the procedure, assisted with retraction and positioning and closing incision. ANESTHESIA: General endotracheal by Dr. Vasquez. TOURNIQUET TIME: Approximately 60 minutes at 300 mmHg. ESTIMATED BLOOD LOSS: Minimal. DRAINS: None. COMPLICATIONS: None. POSTOPERATIVE PLAN: Routine total knee arthroplasty protocol. MATERIALS: MicroPort, cemented size 3 femur, cemented size 3 tibia with a 10 mm insert and cemented size 29 patella. STATEMENT OF MEDICAL NECESSITY: The patient is a 62-year-old female with longstanding right knee osteoarthritis, which has been treated with arthroscopy as well as injections, anti-inflammatories and activity modifications. Due to progressive functional impairment and failure to improve with conservative measures, the patient elected to proceed with surgical intervention. DESCRIPTION OF PROCEDURE: After risks and benefits of procedure were discussed and questions were answered, an informed consent was signed and placed on chart. The operative site was confirmed in the preoperative holding area initialed by the surgeon. The patient was then transported to the operating room. After adequate levels of general endotracheal anesthetic were obtained, a timeout was called confirming the operative site. The right lower extremity was prepped and draped in the usual sterile fashion with the leg elevated and the knee flexed. Tourniquet was inflated to 300 mmHg. Standard anterior approach was utilized. Hemostasis was obtained with cautery. A medial parapatellar arthrotomy was performed leaving 1 cm cuff on the patella for later reattachment. A portion of the fat pad was resected. A subperiosteal release was performed of the proximal medial tibia being careful to stay on the bony surface. The ACL was resected. The intramedullary guide was passed into the femur and the distal cutting block was placed. The distal cut was made. The femur sized to a size 3. The 3 cutting block was placed parallel to the epicondylar axis and cuts were made from posterior to anterior. A subperiosteal release was then carefully performed of the posterior distal femur, being careful to stay on the bony surface. The intramedullary guide was then passed into the tibia. The cutting block was placed. The drop bj transected intermalleolar axis and the cut was made. The three baseplate was placed and again the drop bj transected the intermalleolar axis. This was then prepared with a drill and keel punch. The trials were inserted. The trochlear cut was made on the femur. An additional 2 mm was taken off the tibia due to tightness in flexion and extension. The trials were then reinserted and with a 10 mm insert placed. The patella was prepared using the free hand technique, 10 mm was resected off the undersurface. The peg guide was placed and the peg holes were drilled. The 29 trial button was placed. Full extension was easily obtained. The patella tracked well. There was no anterior/posterior or medial/lateral laxity in flexion or extension. The trials were removed. The joint was copiously irrigated with pulse lavage. The bone ends were dried. The tibial baseplate was cemented into position. Excess cement was removed. The superior surface was irrigated and dried and polyethylene insert was placed. The distal femur was irrigated and dried and the femoral prosthesis was cemented in position. Excessive cement was removed. The knee was brought into full extension while the cement had cured. The undersurface of patella was irrigated and dried and the patellar button was cemented into position. Excessive cement was removed. Once the cement had cured, the knee was taken through range of motion. Full extension was easily obtained, 120 degrees of flexion with gravity was easily obtained. There was no anterior/posterior or medial/lateral laxity in flexion or extension. The patella tracked well. The joint was further irrigated with pulse lavage. Prior to placing the components, the periarticular block was placed in the posterior capsule, medial and lateral retinaculum extensor mechanism, subcutaneous tissues. After copiously irrigating the joint, the arthrotomy was closed with #2 Tevdek in a [id number] interrupted fashion. The knee was flexed. The patella tracked well. There was no undue tension at the repair site. Subcutaneous tissues were irrigated using total of 6 liters throughout the procedure. A 0 Vicryl was used for deep subcutaneous tissue, 2-0 Vicryl for the superficial subcutaneous tissue, mario used on the skin. A soft dressing was applied. The tourniquet was deflated and the patient was transferred to the recovery room, awake and in stable condition. Job ID: [id number] DocumentID: [id number] Dictated Date: 05/27/2018 09:06:03 Radio Time Buyer Date: 05/27/2018 13:31:23 Dictated By: ALBERT BROOKE MD
--- NOTE | 2018-05-27 13:59 | Diagnostic Imaging Report ---
EXAM: Portable erect AP Chest at 1:41 p.m. INDICATION: Shortness of breath FINDINGS: The heart size is at the upper limits of normal and does seem more prominent than noted on the prior exam of 05/14/2018. Furthermore, in the interval since the prior study, a vague area of increased density has developed in the right infrahilar region. This finding is worrisome for pneumonia/atelectasis. The lungs are otherwise generally clear. There is no significant pleural effusion identified. The mediastinum is not widened. The osseous structures are intact. The orthopedic hardware overlying the cervicothoracic junction seen previously is again visualized. IMPRESSION: 1. The appearance of the chest has worsened since the prior study as a new area of pneumonia/atelectasis has developed in the right infrahilar region. Clinical followup is recommended. 2. There is no acute cardiopulmonary abnormality noted otherwise. Dictated by: Dictated on workstation # [id number]
[2018-05-27] MEDS ORDERED: FLU QUADRIvalent (5+ YOA) 2018-2019 (AFLURIA) 0.5 ML IM ONE (14:15)
[2018-05-27] MEDS: RT-ALBUTEROL SULF 2.5 MG/3 ML PRE-MIX VIAL INH SCH ×3 (15:08→22:17)
--- NOTE | 2018-05-27 15:16 | Physical Therapy Evaluation ---
PT Evaluation-General Medical Diagnosis Admission Date May 27, 2018 at 06:10 Medical Diagnosis: R TKA Onset Date: May 27, 2018 Therapy Diagnosis Therapy Diagnosis: decreased mobility, decreased ROM, gait deviation Height/Weight Height (Feet): 5 Height (Inches): 3.00 Weight (Pounds): 174 Weight (Ounces): 3.0 Precautions Precautions/Isolations: Fall Prevention, Standard Precautions Weight Bear Status Right Lower Extremity: Right Weight Bearing/Tolerated Left Lower Extremity: Left Full Weight Bearing Referral Physician: Paresh Harrison Reason for Referral: Evaluation/Treatment Medical History Pertinent Medical History: Atrial Fib, COPD, DM, OA, Smoking Reviewed History: Yes Social History Home: Single Level Current Living Status: Significant Other Entry Into Home: Level Entry Prior/Core FIM Prior Level of Function Therapy Code Descriptions/Definitions Functional Price Measure: 0=Not Assessed/NA 4=Minimal Assistance 1=Total Assistance 5=Supervision or Setup 2=Maximal Assistance 6=Modified Price 3=Moderate Assistance 7=Complete Price Therapy Quality Codes: 6 Independent with activity with or without an assistive device 5 Patient requires set up or clean up by helper. Patient completes activity by themselves 4 Supervision or touching assist (CGA). [place] provide cues , steadying assist 3 The helper provides less than half the effort to complete the activity 2 The helper provides more than half the effort to complete the activity 1 Dependent. The helper does all the effort to complete an activity 7 Patient refused to complete or attempt activity 9 The patient did not perform the activity before the current illness or injury 88 Not attempted due to Medical conditions or safety concerns Functional Abilities and Goals: Independent: Patient completed the activities by him/herself, with or without an assistive device, with no assistance from a helper. Needed Some Help: Patient needed partial assistance from another person to complete activities. Dependent: A helper completed the activities for the patient. Unknown: Not Applicable: Bed Mobility: 7 Transfers (B,C,W/C) (FIM): 7 Gait: 6 Indoor Mobility (Ambulation): Independent Stairs: Not Applicalbe Prior Devices Use: Walker Prior Device Use: 4WW PT Evaluation-Current Subjective Pt in bed and agrees to PT. Pain Numeric Pain Scale: 10-Worst Possible Pain Location: Right Location Body Site: Knee Objective Patient Orientation: Person, Place, Situation, Normal For Age Attachments: SCD's, Oxygen (3L), Polar Pack, IV ROM/Strength ROM Lower Extremities LLE WNL; RLE flex 75 ext +3 Strength Lower Extremities NT Integumentary/Posture Bowel Incontinence: No Bladder Incontinence: No Neuromuscular (Tone, Coordination, Reflexes) NT Sensory Vision: Wears Glasses Hearing: Functional Sensation Right Lower Extremit: Intact Transfers Therapy Code Descriptions/Definitions Functional [place] Measure: 0=Not Assessed/NA 4=Minimal Assistance 1=Total Assistance 5=Supervision or Setup 2=Maximal Assistance 6=Modified Price 3=Moderate Assistance 7=Complete Price Transfers (B, C, W/C) (FIM): 4 Scootin Supine to/from Sit: 5 Sit to/from Stand: 4 Gait Mode of Locomotion: Walk Anticipated Mode of Locomotion: Walk Gait (FIM): 2 Distance (FIM): 2=990-13 ft Distance: 125' Gait Level of Assist: 4 Gait Persons Needed: 1 Gait Assistive Device: Walker 4 Wheeled Comments/Gait Description Antalgic Gait, step to pattern Balance Sitting Static: Good Sitting Dynamic: Good Standing Static: Good Standing Dynamic: Good Assessment/Needs Pt was able to perform supine LE ex (AP, HS, QS, SAQ, SLR) x10 reps. Pt able to perform bed mobility SBA. Pt sit<>stand from EOB with 4WW is CGA. Pt amb with 4WW and CGA on 3L O2 125'. Pt returned to room and is on CPM machine flex 55 and ext -3. Pt has all needs met. Polar care and SCD's on. Rehab Potential: Fair Post Rehab Potential-Barriers: co-morbidities PT Short Term Goals Short Term Goals Time Frame: Jun 03, 2018 Transfers (B,C,W/C) (FIM): 5 Gait (FIM): 5 Distance (FIM): 3=150 ft Gait Distance Comment: 150' Gait Level of Assist: 5 Gait Assistive Device: Walker 4 Wheeled PT Plan Problem List Problem List: Activity Tolerance, Functional Strength, Safety, Balance, Gait, Transfer, Bed Mobility, ROM Treatment/Plan Treatment Plan: Continue Plan of Care Treatment Plan: Bed Mobility, Education, Functional Activity Allison, Functional Strength, Gait, Safety, Therapeutic Exercise, Transfers Treatment Duration: Jun 03, 2018 Frequency: 11 times per week Estimated Hrs Per Day: .25 hour per day Patient and/or Family Agrees t: Yes Safety Risks/Education Patient Education: Gait Training, Transfer Techniques, Reviewed Use of Ice, Correct Positioning, Safety Issues Teaching Recipient: Patient Teaching Methods: Demonstration, Discussion Discharge Recommendations Plan Patient will perform bed mobility and transfer training, balance and endurance training, functional strengthening, stair training, gait training, and education , to improve functional mobility and independence at home. Therapy D/C Recommendations: Home w/ Family Support, Physical Therapy Home Care Time/GCodes Time In: 1405 Time Out: 1431 Total Billed Treatment Time: 26 Total Billed Treatment 1 visit EVL 10 min EX 16 min ROX KOCH PT May 27, 2018 15:16
[2018-05-27 15:19] VITALS: BP 108/58
[2018-05-27] MEDS: CEFUROXIME INJECTION 750 MG in WATER (STERILE) FOR INJECTION 10 ML IV SCH ×2 (15:36→23:34)
[2018-05-27] MEDS ORDERED: NON-FORMULARY MEDICATION 1 EA EA (Sumatriptan Succinate 100 MG) PO PRN (20:15)
[2018-05-27] MEDS ORDERED: FLUTICASONE NASAL SPRAY (FLONASE) 16 GM BTL NS PRN (20:15)
[2018-05-27] MEDS ORDERED: SUMAtriptan 50 MG (IMITREX) TAB PO PRN (20:30)
[2018-05-27 20:50] VITALS: BP 110/64
[2018-05-27] MEDS: SENNA W/DOCUSATE (SENOKOT S) TABLET PO SCH ×2 (20:53→20:55)
[2018-05-27] MEDS: clonazePAM 1 MG (KlonoPIN) TAB PO SCH (20:53)
[2018-05-27] MEDS: MONTELUKAST 10 MG (SINGULAIR) TAB PO SCH (20:54)
[2018-05-27] MEDS: DONEPEZIL 10 MG (ARICEPT) TAB PO SCH (20:54)
[2018-05-27] MEDS: MEMANTINE 10 MG (NAMENDA) TABLET PO SCH (20:54)
[2018-05-27] MEDS: PRIMIDONE 250MG (MYSOLINE) TAB PO SCH (20:54)
[2018-05-27] MEDS: PANTOPRAZOLE 40 MG (PROTONIX) TAB PO SCH (20:54)
[2018-05-27] MEDS: lamoTRIgine 25 MG (LaMICtal) TAB PO SCH (20:54)
[2018-05-27] MEDS: SUCRALFATE 1 GM (CARAFATE) TAB PO SCH (20:54)
[2018-05-27] MEDS: OXYBUTYNIN (DITROPAN) 5 MG TAB PO SCH (20:54)
[2018-05-27] MEDS: GABAPENTIN 400 MG (NEURONTIN) CAP PO SCH (20:54)
[2018-05-27] MEDS: rOPINIRole 1 MG (REQUIP) TABLET PO SCH (20:54)
[2018-05-27] MEDS: RIFAXIMIN 550 MG TABLET (XIFAXAN) PO SCH (20:54)
[2018-05-27] MEDS: MIRTAZAPINE 15 MG (REMERON) TAB PO SCH (20:54)
[2018-05-27] MEDS: traZODone 100 MG (DESYREL) TAB PO SCH (20:54)
[2018-05-27] MEDS: FAMOTIDINE 20 MG (PEPCID) TABLET PO SCH (20:54)
[2018-05-27] MEDS ORDERED: LAMOTRIGINE 25 MG PO SCH (21:00)
[2018-05-27] MEDS ORDERED: NON-FORMULARY MEDICATION 1 EA EA (Ropinirole HCl 2 MG) PO SCH (21:00)
[2018-05-27] MEDS ORDERED: NON-FORMULARY MEDICATION 1 EA EA (Mirtazapine 45 MG) PO SCH (21:00)
[2018-05-27] MEDS ORDERED: NON-FORMULARY MEDICATION 1 EA EA (Memantine HCl 10 MG) PO SCH (21:00)
[2018-05-27] MEDS ORDERED: TIOTROPIUM BROMIDE (SPIRIVA) 5'S INHALER IH SCH (21:00)
[2018-05-27] MEDS ORDERED: NON-FORMULARY MEDICATION 1 EA EA (Clonazepam 1 MG) PO SCH (21:00)
[2018-05-27] MEDS ORDERED: NON-FORMULARY MEDICATION 1 EA EA (Budesonide/Formoterol Fumarate (Symbicort 160-4.5 Mcg In IH SCH (21:00)
[2018-05-27] MEDS ORDERED: NON-FORMULARY MEDICATION 1 EA EA (Oxybutynin Chloride 5 MG) PO SCH (21:00)
[2018-05-27] MEDS ORDERED: NON-FORMULARY MEDICATION 1 EA EA (Ranitidine HCl 300 MG) PO SCH (21:00)
[2018-05-27] MEDS ORDERED: NON-FORMULARY MEDICATION 1 EA EA (Donepezil HCl 10 MG) PO SCH (21:00)
[2018-05-27] MEDS: RT-ADVAIR HFA 115/21 MCG PER PUFF IH SCH (22:17)
[2018-05-27] MEDS: UMECLIDINIUM BROMIDE (INCRUSE ELLIPTA) 7'S IH SCH (22:17)
[2018-05-27 23:36] VITALS: BP 113/59
[2018-05-28] MEDS: oxyCODONE/APAP 5/325MG (PERCOCET 5) TABLET PO PRN ×4 (02:15→21:01)
[2018-05-28] MEDS: RT-ALBUTEROL SULF 2.5 MG/3 ML PRE-MIX VIAL INH SCH ×2 (02:33→06:36)
--- NOTE | 2018-05-28 03:35 | NUR ---
ARU note: Call received for [facility] insurance CM regarding authorization for ARU placement. Azul ANDERSON has denied auth due to high functioning status. Peer to peer can be completed. INTERNATIONAL LOGISTICS ANALYST provided information to Dr. Painter.
[2018-05-28 04:00] VITALS: BP 105/57
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
[2018-05-28] MEDS: MULTIVIT W/MINERALS TAB (THERAGRAN M) PO SCH (06:36)
[2018-05-28] MEDS: VENlafaxine XR 75 MG (EFFEXOR XR) CAP PO SCH (06:36)
[2018-05-28] MEDS: SUCRALFATE 1 GM (CARAFATE) TAB PO SCH ×4 (06:36→21:02)
[2018-05-28] MEDS: PANTOPRAZOLE 40 MG (PROTONIX) TAB PO SCH ×2 (06:36→21:01)
[2018-05-28 07:16] LABS: BASOPHILS % (AUTO) 0 % (0-10); EOSINOPHILS # (AUTO) 0.1 10^3/uL (0.0-0.3); EOSINOPHILS % (AUTO) 1 % (0-10); HEMATOCRIT 35 % (35-52); HEMOGLOBIN 11.1 G/DL (11.5-16.0); LYMPHOCYTES # (AUTO) 1.3 X 10^3 (1.0-4.0); LYMPHOCYTES % (AUTO) 16 % (12-44); MEAN CORPUSCULAR HEMOGLOBIN 28 PG (25-34); MEAN CORPUSCULAR HGB CONC 31 G/DL (32-36); MEAN CORPUSCULAR VOLUME 88 FL (80-99); MEAN PLATELET VOLUME 9.6 FL (7.4-10.4); MONOCYTES # (AUTO) 0.4 X 10^3 (0.0-1.0); MONOCYTES % (AUTO) 6 % (0-12); NEUTROPHILS % (AUTO) 77 % (42-75); PLATELET COUNT 178 10^3/uL (130-400); RED CELL DISTRIBUTION WIDTH 17.1 % (10.0-14.5); WHITE BLOOD COUNT 7.8 10^3/uL (4.3-11.0)
--- NOTE | 2018-05-28 07:19 | Anesthesia-General Post-Op ---
General Patient Condition Mental Status/LOC: Same as Preop Cardiovascular: Satisfactory Nausea/Vomiting: Absent Respiratory: Satisfactory Pain: Controlled Complications: Absent Post Op Complications Complications None Follow Up Care/Instructions Patient Instructions None needed. Anesthesia/Patient Condition Patient Condition Patient is doing well, no complaints, stable vital signs, no apparent adverse anesthesia problems. No complications reported per nursing. D/C home per [facility] Criteria: MERI Teixeira CRNA May 28, 2018 07:19
[2018-05-28 07:34] VITALS: BP 117/61
[2018-05-28 07:40] LABS: ALANINE AMINOTRANSFERASE 118 U/L (0-55); ALBUMIN 3.6 GM/DL (3.2-4.5); ALKALINE PHOSPHATASE 118 U/L (40-136); BILIRUBIN,TOTAL 0.5 MG/DL (0.1-1.0); BUN/CREATININE RATIO 12; CALCIUM 8.8 MG/DL (8.5-10.1); CARBON DIOXIDE 26 MMOL/L (21-32); CHLORIDE 103 MMOL/L (98-107); CREATININE SERUM 0.66 MG/DL (0.60-1.30); GFR ESTIMATED > 60; GLUCOSE 105 MG/DL (70-105); POTASSIUM 3.7 MMOL/L (3.6-5.0); SODIUM 138 MMOL/L (135-145); TOTAL PROTEIN 5.8 GM/DL (6.4-8.2)
--- NOTE | 2018-05-28 07:56 | Progress Note-Standard ---
Standard Progress Note Progress Notes/Assess & Plan Date Seen by a Provider: May 28, 2018 Time Seen by a Provider: 07:55 Progress/Assessment & Plan no complaints radiographs--HW well positioned without fracture RLE--brisk cap refill with equal pulses sensation intact throughout intact DF and PF of toes and ankle s/p RTKA mobilize as able Final Diagnosis No complaints Vital Signs Date Time Temp Pulse Resp B/P (MAP) Pulse Ox O2 Delivery O2 Flow Rate FiO2 05/28/18 07:34 99.8 111 16 117/61 (79) 92 Nasal Cannula 3.00 05/28/18 06:36 94 Nasal Cannula 3.00 05/28/18 04:00 98.8 86 20 105/57 (73) 92 Nasal Cannula 3.00 05/28/18 02:33 92 Nasal Cannula 3.00 05/27/18 23:36 98.4 92 20 113/59 (77) 94 Nasal Cannula 3.00 05/27/18 22:23 94 Nasal Cannula 3.00 05/27/18 22:20 94 Nasal Cannula 3.00 05/27/18 22:17 94 Nasal Cannula 3.00 05/27/18 20:50 98.2 98 16 110/64 (79) 93 Nasal Cannula 3.00 05/27/18 20:00 96 Nasal Cannula 3.00 05/27/18 18:56 95 Nasal Cannula 3.00 05/27/18 15:19 97.4 96 16 108/58 (75) 94 Nasal Cannula 3.00 05/27/18 15:08 91 Nasal Cannula 3.00 05/27/18 12:59 97.0 100 20 111/56 (74) 92 Nasal Cannula 3.00 05/27/18 09:55 97.6 104 18 107/68 94 Nasal Cannula 3.00 3.00 05/27/18 09:55 97.6 104 18 107/68 (81) 94 3.00 I & O 05/28/18 06:59 Intake Total 2934 ml Output Total 2500 ml Balance 434 ml Laboratory Tests Test 05/27/18 09:11 05/28/18 07:09 Range/Units Glucometer 147 H 70-110 MG/DL White Blood Count 7.8 4.3-11.0 10^3/uL Red Blood Count 4.02 L 4.35-5.85 10^6/uL Hemoglobin 11.1 L 11.5-16.0 G/DL Hematocrit 35 35-52 % Mean Corpuscular Volume 88 80-99 FL Mean Corpuscular Hemoglobin 28 25-34 PG Mean Corpuscular Hemoglobin Concent 31 L 32-36 G/DL Red Cell Distribution Width 17.1 H 10.0-14.5 % Platelet Count 178 130-400 10^3/uL Mean Platelet Volume 9.6 7.4-10.4 FL Neutrophils (%) (Auto) 77 H 42-75 % Lymphocytes (%) (Auto) 16 12-44 % Monocytes (%) (Auto) 6 0-12 % Eosinophils (%) (Auto) 1 0-10 % Basophils (%) (Auto) 0 0-10 % Neutrophils # (Auto) 6.0 1.8-7.8 X 10^3 Lymphocytes # (Auto) 1.3 1.0-4.0 X 10^3 Monocytes # (Auto) 0.4 0.0-1.0 X 10^3 Eosinophils # (Auto) 0.1 0.0-0.3 10^3/uL Basophils # (Auto) 0.0 0.0-0.1 10^3/uL Sodium Level 138 135-145 MMOL/L Potassium Level 3.7 3.6-5.0 MMOL/L Chloride Level 103 98-107 MMOL/L Carbon Dioxide Level 26 21-32 MMOL/L Anion Gap 9 5-14 MMOL/L Blood Urea Nitrogen 8 7-18 MG/DL Creatinine 0.66 0.60-1.30 MG/DL Estimat Glomerular Filtration Rate > 60 BUN/Creatinine Ratio 12 Glucose Level 105 70-105 MG/DL Calcium Level 8.8 8.5-10.1 MG/DL Corrected Calcium 9.1 8.5-10.1 MG/DL Total Bilirubin 0.5 0.1-1.0 MG/DL Aspartate Amino Transf (AST/SGOT) 192 H 5-34 U/L Alanine Aminotransferase (ALT/SGPT) 118 H 0-55 U/L Alkaline Phosphatase 118 40-136 U/L Total Protein 5.8 L 6.4-8.2 GM/DL Albumin 3.6 3.2-4.5 GM/DL RLE--dressing intact. NVI distally. No calf tenderness. Neg Yovani's s/p RTKA doing well PT/OT ZAFUTA,ERIC P MD May 28, 2018 07:56
[2018-05-28] MEDS ORDERED: NON-FORMULARY MEDICATION 1 EA EA (Aripiprazole 10 MG) PO SCH (09:00)
[2018-05-28] MEDS ORDERED: NON-FORMULARY MEDICATION 1 EA EA (Omeprazole 40 MG) PO SCH (09:00)
[2018-05-28] MEDS ORDERED: NON-FORMULARY MEDICATION 1 EA EA (Diltiazem HCl (Diltiazem 24Hr Cd) 240 MG) PO SCH (09:00)
[2018-05-28] MEDS ORDERED: LEVOCETIRIZINE 5 MG TAB (XYZAL) NON-FORMULARY PO SCH (09:00)
[2018-05-28] MEDS ORDERED: NON-FORMULARY MEDICATION 1 EA EA (Venlafaxine HCl (Venlafaxine HCl ER) 75 MG) PO SCH (09:00)
--- NOTE | 2018-05-28 09:46 | Pulmonary Progress Note ---
Subjective Time Seen by a Provider: 09:46 Subjective/Events-last exam No complications noted currently. Sepsis Event Evaluation Height, Weight, BMI Height: 5'3.00" Weight: 174lbs. 3.0oz. 79.350870sv; 30.7 BMI Method:Stated Exam Exam Vital Signs Date Time Temp Pulse Resp B/P (MAP) Pulse Ox O2 Delivery O2 Flow Rate FiO2 05/28/18 07:34 99.8 111 16 117/61 (79) 92 Nasal Cannula 3.00 05/28/18 06:36 94 Nasal Cannula 3.00 05/28/18 04:00 98.8 86 20 105/57 (73) 92 Nasal Cannula 3.00 05/28/18 02:33 92 Nasal Cannula 3.00 05/27/18 23:36 98.4 92 20 113/59 (77) 94 Nasal Cannula 3.00 05/27/18 22:23 94 Nasal Cannula 3.00 05/27/18 22:20 94 Nasal Cannula 3.00 05/27/18 22:17 94 Nasal Cannula 3.00 05/27/18 20:50 98.2 98 16 110/64 (79) 93 Nasal Cannula 3.00 05/27/18 20:00 96 Nasal Cannula 3.00 05/27/18 18:56 95 Nasal Cannula 3.00 05/27/18 15:19 97.4 96 16 108/58 (75) 94 Nasal Cannula 3.00 05/27/18 15:08 91 Nasal Cannula 3.00 05/27/18 12:59 97.0 100 20 111/56 (74) 92 Nasal Cannula 3.00 05/27/18 09:55 97.6 104 18 107/68 94 Nasal Cannula 3.00 3.00 05/27/18 09:55 97.6 104 18 107/68 (81) 94 3.00 I & O 05/28/18 06:59 Intake Total 2934 ml Output Total 2500 ml Balance 434 ml Height & Weight Height: 5'3.00" Weight: 174lbs. 3.0oz. 79.312869cw; 30.7 BMI Method:Stated General Appearance: No Apparent Distress, WD/WN, Chronically ill HEENT: PERRL/EOMI, Normal ENT Inspection, Pharynx Normal Neck: Full Range of Motion, Normal Inspection, Non Tender, Supple, Carotid Bruit Respiratory: Chest Non Tender, Lungs Clear, Normal Breath Sounds, No Accessory Muscle Use, No Respiratory Distress, Decreased Breath Sounds Cardiovascular: Regular Rate, Rhythm, No Edema, No Gallop, No JVD, No Murmur, Normal Peripheral Pulses Extremity: Normal Capillary Refill, Normal Inspection, Normal Range of Motion ( except right leg in CPM machine), Non Tender, No Calf Tenderness, No Pedal Edema Neurologic/Psychiatric: Alert, Oriented x3, No Motor/Sensory Deficits, Normal Mood/Affect Skin: Normal Color, Warm/Dry Lymphatic: No Adenopathy Results Lab Laboratory Tests 05/28/18 07:09 Assessment/Plan Assessment/Plan Osteoarthritis S/p total knee replacement Hx of severe COPD -SVNSs change to easy PAP with DuoNeb Atelectasis -Change SVN to easy pap and start IS Hypoxia -Oxygen NIDDM II CAD AYAZ LUCIANO DO May 28, 2018 09:46
[2018-05-28] MEDS: ENOXAPARIN 30 MG/0.3 ML (LOVENOX) SYR SC SCH ×2 (10:23→21:00)
[2018-05-28] MEDS: lamoTRIgine 25 MG (LaMICtal) TAB PO SCH ×3 (10:23→21:02)
[2018-05-28] MEDS: GABAPENTIN 400 MG (NEURONTIN) CAP PO SCH ×4 (10:23→21:01)
[2018-05-28] MEDS: SENNA W/DOCUSATE (SENOKOT S) TABLET PO SCH ×2 (10:23→21:01)
[2018-05-28] MEDS: clonazePAM 1 MG (KlonoPIN) TAB PO SCH ×2 (10:24→21:02)
[2018-05-28] MEDS: ASPIRIN E.C. 81 MG (ECOTRIN) TAB PO SCH (10:24)
[2018-05-28] MEDS: SERTRALINE 100 MG (ZOLOFT) TAB PO SCH (10:24)
[2018-05-28] MEDS: FUROSEMIDE 20 MG (LASIX) TAB PO SCH (10:24)
[2018-05-28] MEDS: predniSONE 10 MG TAB PO SCH (10:25)
[2018-05-28] MEDS: LORATADINE (CLARITIN) 10 MG TAB PO SCH (10:25)
[2018-05-28] MEDS: RIFAXIMIN 550 MG TABLET (XIFAXAN) PO SCH ×3 (10:25→21:00)
[2018-05-28] MEDS: CEFDINIR 300 MG (OMNICEF) CAP PO SCH ×2 (10:25→21:01)
[2018-05-28] MEDS: DILTIAZEM 240 MG (CARDIZEM CD) CAP PO SCH (10:25)
[2018-05-28] MEDS: RT-ALBUTEROL/IPRATROPIUM 3 ML (DUONEB) VIAL INH SCH ×4 (10:25→22:19)
[2018-05-28] MEDS: PRIMIDONE 250MG (MYSOLINE) TAB PO SCH ×2 (10:26→21:02)
[2018-05-28] MEDS: FAMOTIDINE 20 MG (PEPCID) TABLET PO SCH ×2 (10:26→21:01)
[2018-05-28] MEDS: OXYBUTYNIN (DITROPAN) 5 MG TAB PO SCH ×2 (10:27→21:02)
--- NOTE | 2018-05-28 10:33 | Physical Therapy Daily Note ---
PT Daily Note-Current Subjective Pt in bed and agrees to PT. Pain Numeric Pain Scale: 10-Worst Possible Pain Location: Right Location Body Site: Knee Mental Status Patient Orientation: Person Attachments: SCD's, Oxygen (3L), Polar Pack, IV Transfers Therapy Code Descriptions/Definitions Functional [place] Measure: 0=Not Assessed/NA 4=Minimal Assistance 1=Total Assistance 5=Supervision or Setup 2=Maximal Assistance 6=Modified [place] 3=Moderate Assistance 7=Complete [place] Therapy Quality Codes: 6 Independent with activity with or without an assistive device 5 Patient requires set up or clean up by helper. Patient completes activity by themselves 4 Supervision or touching assist (CGA). [place] provide cues , steadying assist 3 The helper provides less than half the effort to complete the activity 2 The helper provides more than half the effort to complete the activity 1 Dependent. The helper does all the effort to complete an activity 7 Patient refused to complete or attempt activity 9 The patient did not perform the activity before the current illness or injury 88 Not attempted due to Medical conditions or safety concerns Transfers (B, C, W/C) (FIM): 4 Scootin Supine to/from Sit: 5 Sit to/from Stand: 4 Weight Bearing Right Lower Extremity: Right Weight Bearing/Tolerated Left Lower Extremity: Left Full Weight Bearing Gait Training Gait (FIM): 2 Distance (FIM): 8=705-37 ft Distance: 120' Gait Level of Assist: 4 Gait Persons Needed: 1 Gait Assistive Device: Walker 4 Wheeled Reciprocal pattern Exercises Supine Ex: Ankle pumps, Quad Set, Heel Slides, Short Arc Quads, Straight leg raise Supine Reps: 10 Assessment Current Status: Fair Progress Pt is still very groggy. Has a hard time keeping eyes open during tx. Pt able to perform supine LE ex with min A of RLE. Pt able to perform bed mobility with SBA. Sit<>stand transfer from EOB to 4WW is min A. Pt able to amb with good ext and reciprocal pattern 120' with 4WW and 3L O2. Pt also used restroom and was SBA with bathroom skills. Pt is now in recliner with all needs met. PT Short Term Goals Short Term Goals Time Frame: Jun 03, 2018 Transfers (B,C,W/C) (FIM): 5 Gait (FIM): 5 Distance (FIM): 3=150 ft Gait Distance Comment: 150' Gait Level of Assist: 5 Gait Assistive Device: Walker 4 Wheeled PT Plan Problem List Problem List: Activity Tolerance, Functional Strength, Safety, Balance, Gait, Transfer, Bed Mobility, ROM Treatment/Plan Treatment Plan: Continue Plan of Care Treatment Plan: Bed Mobility, Education, Functional Activity Allison, Functional Strength, Gait, Safety, Therapeutic Exercise, Transfers Treatment Duration: Jun 03, 2018 Frequency: 11 times per week Estimated Hrs Per Day: .25 hour per day Patient and/or Family Agrees t: Yes Time/GCodes Time In: 820 Time Out: 852 Total Billed Treatment Time: 32 Total Billed Treatment 1 visit EX 15 min FA 17 min ZOYA HANNON PT May 28, 2018 10:33
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
[2018-05-28] MEDS: RT-ADVAIR HFA 115/21 MCG PER PUFF IH SCH ×2 (10:44→18:21)
[2018-05-28] MEDS ORDERED: NS IV 1000 ML 1,000 ML ONE (11:12)
[2018-05-28] MEDS ORDERED: NS IV 500 ML 500 ML IV SCH (11:30)
--- NOTE | 2018-05-28 11:42 | NUR ---
Inpatient rehab evaluation Received order to evaluate patient for admission to the inpatient rehab unit. Patient has [employer] insurance and prior authorization has been initiated. Awaiting decision from [employer] Thank you for the referral.
[2018-05-28 12:26] VITALS: BP 103/59
--- NOTE | 2018-05-28 13:13 | Occupational Therapy Eval ---
OT Evaluation-General/PLF Medical Diagnosis Admission Date May 27, 2018 at 06:10 Medical Diagnosis: R TKA Onset Date: May 27, 2018 Therapy Diagnosis Therapy Diagnosis: Decreased ADL skills Height/Weight Height (Feet): 5 Height (Inches): 3.00 Weight (Pounds): 174 Weight (Ounces): 3.0 Precautions Precautions/Isolations: Fall Prevention, Standard Precautions Safety Interventions: None Weight Bear Status Weight Bearing Restriction: Weight Bearing/Tolerated Referral Physician: Paresh Harrison Referral Reason: Activity Tolerance, Self Care, Evaluation/Treatment, Strengthening/ROM Medical History Pertinent Medical History: Atrial Fib, COPD, DM, OA, Smoking Additional Medical History CDD, DVT, RLS, Anxiety, scoliosis, cardiac ablation, Left TKA Reviewed History: Yes Social History Home: Single Level Current Living Status: Significant Other Entry Into Home: Level Entry ADL-Prior Level of Function Therapy Code Descriptions/Definitions Functional [place] Measure: 0=Not Assessed/NA 4=Minimal Assistance 1=Total Assistance 5=Supervision or Setup 2=Maximal Assistance 6=Modified [place] 3=Moderate Assistance 7=Complete [place] Therapy Quality Codes: 6 Independent with activity with or without an assistive device 5 Patient requires set up or clean up by helper. Patient completes activity by themselves 4 Supervision or touching assist (CGA). [place] provide cues , steadying assist 3 The helper provides less than half the effort to complete the activity 2 The helper provides more than half the effort to complete the activity 1 Dependent. The helper does all the effort to complete an activity 7 Patient refused to complete or attempt activity 9 The patient did not perform the activity before the current illness or injury 88 Not attempted due to Medical conditions or safety concerns Functional Abilities and Goals: Independent: Patient completed the activities by him/herself, with or without an assistive device, with no assistance from a helper. Needed Some Help: Patient needed partial assistance from another person to complete activities. Dependent: A helper completed the activities for the patient. Unknown: Not Applicable: ADL PLOF Comments Pt. states that she has someone who assists her with daily tasks. States that they assist with bathing and dressing, cooking and cleaning. States that it is "help" but does not state amount that they assist her. Self Care: Needed Some Help Functional Cognition: Unknown DME/Equipment: Tub/Shower DME/Equipment Comments Pt. has a walker with seat. OT Current Status Subjective Pt. reports a "9 1/2" pain level in knee. Pt. has CONSULTANT INTERN. Appearance Pt. in bed with CPM on. Pt. is groggy but agrees to work with OT. Mental Status/Objective Patient Orientation: Person Attachments: IV Current Glasses/Contacts: Yes Upper Extremity ROM WFL ADL-Treatment Therapy Code Descriptions/Definitions Functional [place] Measure: 0=Not Assessed/NA 4=Minimal Assistance 1=Total Assistance 5=Supervision or Setup 2=Maximal Assistance 6=Modified [place] 3=Moderate Assistance 7=Complete [place] Therapy Quality Codes: 6 Independent with activity with or without an assistive device 5 Patient requires set up or clean up by helper. Patient completes activity by themselves 4 Supervision or touching assist (CGA). [place] provide cues , steadying assist 3 The helper provides less than half the effort to complete the activity 2 The helper provides more than half the effort to complete the activity 1 Dependent. The helper does all the effort to complete an activity 7 Patient refused to complete or attempt activity 9 The patient did not perform the activity before the current illness or injury 88 Not attempted due to Medical conditions or safety concerns Bathing (FIM): 3 (Pt. is able to wash upper body while seated on side of bed. In stance, she is able to balance self with CGA and wash front crissy area. Pt. is unable to wash rear crissy area due to balance. OT does this for her. Did not doff CANDELARIO hose due to bandage.) Transfers (B, C, W/C) (FIM): 3 (Min assist supine-sit. Min assist sit-stand. Mod assist sit-supine.) Other Treatments Pt. agreed to work with OT. Transferred to side of bed and completed sponge bath seated on side. Pt. able to stand with CGA. Reports pain in knee. Has CONSULTANT INTERN pump. After bathing, transferred back supine with mod assistance. States, "that really wore me out." All needs met back in bed. Pt. has phone and is eating lunch. Requests to have polar pack and CPM off at this time. Agrees to have SCDs on. Education OT Patient Education: Correct positioning, Modified ADL techniques, Progress toward Goal/Update tx plan, Purpose of tx/functional activities, Reviewed precautions, Rehab process, Transfer techniques Teaching Recipient: Patient Teaching Methods: Demonstration, Discussion Response to Teaching: Verbalize Understanding, Return Demonstration OT Short Term Goals Short Term Goals Time Frame: Jun 04, 2018 Eating(FIM): 5 Grooming(FIM): 5 Bathing(FIM): 5 Upper Body Dressing(FIM): 5 Lower Body Dressing(FIM): 4 Toileting(FIM): 5 Transfers (B,C,W/C) (FIM): 5 Toilet/Commode Transfer(FIM): 5 Shower Transfer(FIM): 4 Additional Short Term Goals: 1-Demonstrate ADL Tasks, 2-Verbalize Understanding , 3-ImproveStrength/[place] 1=Demonstrate adherence to instructed precautions during ADL tasks. 2=Patient will verbalize/demonstrate understanding of assistive devices/ modifications for ADL. 3=Patient will improve strength/tolerance for activity to enable patient to perform ADL's. OT Director Of Development And Marketing Goals Fpc Goals Time Frame: Jun 11, 2018 Eating (FIM): 6 Grooming(FIM): 6 Bathing(FIM): 5 Upper Body Dressing(FIM): 6 Lower Body Dressing(FIM): 6 Toileting(FIM): 6 Transfers (B,C,W/C) (FIM): 6 Toilet/Commode Transfer(FIM): 6 Shower Transfer(FIM): 5 Additional Goals: 1-Demonstrate ADL Tasks, 2-Verbalize Understanding, 3- ImproveStrength/[place] 1=Demonstrate adherence to instructed precautions during ADL tasks. 2=Patient will verbalize/demonstrate understanding of assistive devices/ modifications for ADL. 3=Patient will improve strength/tolerance for activity to enable patient to perform ADL's. OT Education/Plan Problem List/Assessment Assessment: Decreased Activ Tolerance, Dependent Transfers, Impaired I ADL's, Impaired Self-Care Skills Discharge Recommendations Plan/Recommendations: Continue POC Therapy D/C Recommendations: Home w/ Family Support, Occupational Therapy Home Care Equpiment Recommendations-D/C: Extended Bath Bench Treatment Plan/Plan of Care Treatment,Training & Education: Yes Patient would benefit from OT for education, treatment and training to promote independence in ADL's, mobility, safety and/or upper extremity function for ADL' s. Plan of Care: ADL Retraining, Functional Mobility, UE Funct Exercise/Act Treatment Duration: Jun 11, 2018 Frequency: 5 times per week Estimated Hrs Per Day: .25 hour per day Agreement: Yes Rehab Potential: Good Time/GCodes Start Time: 11:45 Stop Time: 12:02 Total Time Billed (hr/min): 17 Billed Treatment Time 1, TITUS ALLEN OT May 28, 2018 13:13
--- NOTE | 2018-05-28 14:42 | Physical Therapy Daily Note ---
PT Daily Note-Current Subjective Pt in bed and agrees to PT. Pain Numeric Pain Scale: 10-Worst Possible Pain Location: Right Location Body Site: Knee Mental Status Patient Orientation: Person Attachments: Oxygen (3L), IV Transfers Therapy Code Descriptions/Definitions Functional [place] Measure: 0=Not Assessed/NA 4=Minimal Assistance 1=Total Assistance 5=Supervision or Setup 2=Maximal Assistance 6=Modified [place] 3=Moderate Assistance 7=Complete [place] Therapy Quality Codes: 6 Independent with activity with or without an assistive device 5 Patient requires set up or clean up by helper. Patient completes activity by themselves 4 Supervision or touching assist (CGA). [place] provide cues , steadying assist 3 The helper provides less than half the effort to complete the activity 2 The helper provides more than half the effort to complete the activity 1 Dependent. The helper does all the effort to complete an activity 7 Patient refused to complete or attempt activity 9 The patient did not perform the activity before the current illness or injury 88 Not attempted due to Medical conditions or safety concerns Transfers (B, C, W/C) (FIM): 5 Scootin Supine to/from Sit: 5 Sit to/from Stand: 5 Weight Bearing Right Lower Extremity: Right Weight Bearing/Tolerated Left Lower Extremity: Left Full Weight Bearing Gait Training Gait (FIM): 2 Distance (FIM): 4=119-79 ft Distance: 150' Gait Level of Assist: 5 Gait Persons Needed: 1 Gait Assistive Device: Walker 4 Wheeled Exercises Supine Ex: Ankle pumps, Quad Set, Heel Slides, Short Arc Quads, Straight leg raise Supine Reps: 10 Assessment Current Status: Fair Progress Pt continues to be very groggy and is not able to keep eyes open during tx. Pt able to perform supine LE ex. Pt bed mobility and sit<>stand is SBA to 4WW. Pt able 150' with 4WW and SBA with 3L O2. Pt returned to room and is in bed with CPM on at 75 flex and -3 ext. Pt has all needs met. PT Short Term Goals Short Term Goals Time Frame: Jun 03, 2018 Transfers (B,C,W/C) (FIM): 5 Gait (FIM): 5 Distance (FIM): 3=150 ft Gait Distance Comment: 150' Gait Level of Assist: 5 Gait Assistive Device: Walker 4 Wheeled PT Plan Problem List Problem List: Activity Tolerance, Functional Strength, Safety, Balance, Gait, Transfer, Bed Mobility, ROM Treatment/Plan Treatment Plan: Continue Plan of Care Treatment Plan: Bed Mobility, Education, Functional Activity [place], Functional Strength, Gait, Safety, Therapeutic Exercise, Transfers Treatment Duration: Jun 03, 2018 Frequency: 11 times per week Estimated Hrs Per Day: .25 hour per day Patient and/or Family Agrees t: Yes Time/GCodes Time In: 1350 Time Out: 1406 Total Billed Treatment Time: 16 Total Billed Treatment 1 visit FA 16 min ZOYA HANNON PT May 28, 2018 14:42
[2018-05-28 16:00] VITALS: BP 125/1
[2018-05-28] MEDS: morphine INJ 4 MG/ML 1 ML (VIAL/SYRINGE) IVP PRN (18:39)
[2018-05-28 20:00] VITALS: BP 108/54
[2018-05-28] MEDS: MONTELUKAST 10 MG (SINGULAIR) TAB PO SCH (21:00)
[2018-05-28] MEDS: rOPINIRole 1 MG (REQUIP) TABLET PO SCH (21:00)
[2018-05-28] MEDS: traZODone 100 MG (DESYREL) TAB PO SCH (21:01)
[2018-05-28] MEDS: MIRTAZAPINE 15 MG (REMERON) TAB PO SCH (21:01)
[2018-05-28] MEDS: MEMANTINE 10 MG (NAMENDA) TABLET PO SCH (21:02)
[2018-05-28] MEDS: DONEPEZIL 10 MG (ARICEPT) TAB PO SCH (21:02)
[2018-05-28] MEDS: UMECLIDINIUM BROMIDE (INCRUSE ELLIPTA) 7'S IH SCH (22:19)
[2018-05-29 00:48] VITALS: BP 114/62
[2018-05-29] MEDS: RT-ALBUTEROL/IPRATROPIUM 3 ML (DUONEB) VIAL INH SCH ×5 (02:37→21:29)
[2018-05-29] MEDS: oxyCODONE/APAP 5/325MG (PERCOCET 5) TABLET PO PRN ×3 (02:46→17:10)
[2018-05-29] MEDS: morphine INJ 4 MG/ML 1 ML (VIAL/SYRINGE) IVP PRN ×2 (03:04→06:17)
[2018-05-29] MEDS: SUCRALFATE 1 GM (CARAFATE) TAB PO SCH ×4 (06:17→21:14)
[2018-05-29] MEDS: MULTIVIT W/MINERALS TAB (THERAGRAN M) PO SCH (06:17)
[2018-05-29] MEDS: VENlafaxine XR 75 MG (EFFEXOR XR) CAP PO SCH (06:17)
[2018-05-29] MEDS: PANTOPRAZOLE 40 MG (PROTONIX) TAB PO SCH ×2 (06:17→21:12)
[2018-05-29 06:34] LABS: BASOPHILS % (AUTO) 0 % (0-10); EOSINOPHILS # (AUTO) 0.1 10^3/uL (0.0-0.3); EOSINOPHILS % (AUTO) 1 % (0-10); HEMATOCRIT 37 % (35-52); HEMOGLOBIN 11.2 G/DL (11.5-16.0); LYMPHOCYTES # (AUTO) 1.4 X 10^3 (1.0-4.0); LYMPHOCYTES % (AUTO) 16 % (12-44); MEAN CORPUSCULAR HEMOGLOBIN 27 PG (25-34); MEAN CORPUSCULAR HGB CONC 30 G/DL (32-36); MEAN CORPUSCULAR VOLUME 89 FL (80-99); MEAN PLATELET VOLUME 10.5 FL (7.4-10.4); MONOCYTES # (AUTO) 0.9 X 10^3 (0.0-1.0); MONOCYTES % (AUTO) 10 % (0-12); NEUTROPHILS # (AUTO) 6.2 X 10^3 (1.8-7.8); NEUTROPHILS % (AUTO) 72 % (42-75); PLATELET COUNT 187 10^3/uL (130-400); RED CELL DISTRIBUTION WIDTH 17.1 % (10.0-14.5); WHITE BLOOD COUNT 8.6 10^3/uL (4.3-11.0)
[2018-05-29 06:54] LABS: ALANINE AMINOTRANSFERASE 75 U/L (0-55); ALBUMIN 3.3 GM/DL (3.2-4.5); ALKALINE PHOSPHATASE 143 U/L (40-136); BILIRUBIN,TOTAL 0.6 MG/DL (0.1-1.0); BUN/CREATININE RATIO 9; CALCIUM 8.9 MG/DL (8.5-10.1); CARBON DIOXIDE 26 MMOL/L (21-32); CHLORIDE 101 MMOL/L (98-107); CREATININE SERUM 0.55 MG/DL (0.60-1.30); GFR ESTIMATED > 60; GLUCOSE 92 MG/DL (70-105); POTASSIUM 3.8 MMOL/L (3.6-5.0); SODIUM 136 MMOL/L (135-145); TOTAL PROTEIN 5.7 GM/DL (6.4-8.2)
--- NOTE | 2018-05-29 07:03 | Progress Note-Standard ---
Standard Progress Note Progress Notes/Assess & Plan Date Seen by a Provider: May 29, 2018 Time Seen by a Provider: 07:01 Progress/Assessment & Plan no complaints radiographs--HW well positioned without fracture RLE--brisk cap refill with equal pulses sensation intact throughout intact DF and PF of toes and ankle s/p RTKA mobilize as able Final Diagnosis feeling better Vital Signs Date Time Temp Pulse Resp B/P (MAP) Pulse Ox O2 Delivery O2 Flow Rate FiO2 05/29/18 02:37 92 Nasal Cannula 5.00 05/29/18 00:48 98.8 108 17 114/62 (79) 95 Nasal Cannula 5.00 05/28/18 22:19 90 Nasal Cannula 5.00 05/28/18 20:00 96 Nasal Cannula 3.00 05/28/18 20:00 98.6 116 17 108/54 (72) 93 Nasal Cannula 3.00 05/28/18 19:10 99.8 05/28/18 18:21 94 Nasal Cannula 3.00 05/28/18 18:21 94 Nasal Cannula 3.00 05/28/18 16:00 98.0 108 16 125/1 (42) 91 Nasal Cannula 3.00 05/28/18 14:14 95 Nasal Cannula 3.00 05/28/18 12:26 99.8 109 16 103/59 (74) 91 Nasal Cannula 3.00 05/28/18 10:44 97 Nasal Cannula 3.00 05/28/18 10:26 97 Nasal Cannula 3.00 05/28/18 08:00 96 Nasal Cannula 3.00 05/28/18 07:34 99.8 111 16 117/61 (79) 92 Nasal Cannula 3.00 I & O 05/29/18 07:00 Intake Total 922 ml Output Total 2675 ml Balance -1753 ml Laboratory Tests Test 05/28/18 07:09 05/29/18 05:55 Range/Units White Blood Count 7.8 8.6 4.3-11.0 10^3/uL Red Blood Count 4.02 L 4.18 L 4.35-5.85 10^6/uL Hemoglobin 11.1 L 11.2 L 11.5-16.0 G/DL Hematocrit 35 37 35-52 % Mean Corpuscular Volume 88 89 80-99 FL Mean Corpuscular Hemoglobin 28 27 25-34 PG Mean Corpuscular Hemoglobin Concent 31 L 30 L 32-36 G/DL Red Cell Distribution Width 17.1 H 17.1 H 10.0-14.5 % Platelet Count 178 187 130-400 10^3/uL Mean Platelet Volume 9.6 10.5 H 7.4-10.4 FL Neutrophils (%) (Auto) 77 H 72 42-75 % Lymphocytes (%) (Auto) 16 16 12-44 % Monocytes (%) (Auto) 6 10 0-12 % Eosinophils (%) (Auto) 1 1 0-10 % Basophils (%) (Auto) 0 0 0-10 % Neutrophils # (Auto) 6.0 6.2 1.8-7.8 X 10^3 Lymphocytes # (Auto) 1.3 1.4 1.0-4.0 X 10^3 Monocytes # (Auto) 0.4 0.9 0.0-1.0 X 10^3 Eosinophils # (Auto) 0.1 0.1 0.0-0.3 10^3/uL Basophils # (Auto) 0.0 0.0 0.0-0.1 10^3/uL Sodium Level 138 136 135-145 MMOL/L Potassium Level 3.7 3.8 3.6-5.0 MMOL/L Chloride Level 103 101 98-107 MMOL/L Carbon Dioxide Level 26 26 21-32 MMOL/L Anion Gap 9 9 5-14 MMOL/L Blood Urea Nitrogen 8 5 L 7-18 MG/DL Creatinine 0.66 0.55 L 0.60-1.30 MG/DL Estimat Glomerular Filtration Rate > 60 > 60 BUN/Creatinine Ratio 12 9 Glucose Level 105 92 70-105 MG/DL Calcium Level 8.8 8.9 8.5-10.1 MG/DL Corrected Calcium 9.1 9.5 8.5-10.1 MG/DL Total Bilirubin 0.5 0.6 0.1-1.0 MG/DL Aspartate Amino Transf (AST/SGOT) 192 H 79 H 5-34 U/L Alanine Aminotransferase (ALT/SGPT) 118 H 75 H 0-55 U/L Alkaline Phosphatase 118 143 H 40-136 U/L Total Protein 5.8 L 5.7 L 6.4-8.2 GM/DL Albumin 3.6 3.3 3.2-4.5 GM/DL rle--incision clean and dry no calf tenderness neg SLR s/p RTKA continue PT/OT DC tomorrow ERIC BROOKE MD May 29, 2018 07:02
--- NOTE | 2018-05-29 07:09 | Pulmonary Progress Note ---
Subjective Time Seen by a Provider: 07:42 Subjective/Events-last exam No complications noted. Sepsis Event Evaluation Height, Weight, BMI Height: 5'3.00" Weight: 174lbs. 3.0oz. 79.552170ly; 30.7 BMI Method:Stated Exam Exam Vital Signs Date Time Temp Pulse Resp B/P (MAP) Pulse Ox O2 Delivery O2 Flow Rate FiO2 05/29/18 02:37 92 Nasal Cannula 5.00 05/29/18 00:48 98.8 108 17 114/62 (79) 95 Nasal Cannula 5.00 05/28/18 22:19 90 Nasal Cannula 5.00 05/28/18 20:00 96 Nasal Cannula 3.00 05/28/18 20:00 98.6 116 17 108/54 (72) 93 Nasal Cannula 3.00 05/28/18 19:10 99.8 05/28/18 18:21 94 Nasal Cannula 3.00 05/28/18 18:21 94 Nasal Cannula 3.00 05/28/18 16:00 98.0 108 16 125/1 (42) 91 Nasal Cannula 3.00 05/28/18 14:14 95 Nasal Cannula 3.00 05/28/18 12:26 99.8 109 16 103/59 (74) 91 Nasal Cannula 3.00 05/28/18 10:44 97 Nasal Cannula 3.00 05/28/18 10:26 97 Nasal Cannula 3.00 05/28/18 08:00 96 Nasal Cannula 3.00 05/28/18 07:34 99.8 111 16 117/61 (79) 92 Nasal Cannula 3.00 I & O 05/29/18 07:00 Intake Total 922 ml Output Total 2675 ml Balance -1753 ml Height & Weight Height: 5'3.00" Weight: 174lbs. 3.0oz. 79.699717rv; 30.7 BMI Method:Stated General Appearance: No Apparent Distress, WD/WN, Chronically ill HEENT: PERRL/EOMI, Normal ENT Inspection, Pharynx Normal Neck: Full Range of Motion, Normal Inspection, Non Tender, Supple, Carotid Bruit Respiratory: Chest Non Tender, Lungs Clear, Normal Breath Sounds, No Accessory Muscle Use, No Respiratory Distress, Decreased Breath Sounds Cardiovascular: Regular Rate, Rhythm, No Edema, No Gallop, No JVD, No Murmur, Normal Peripheral Pulses Extremity: Normal Capillary Refill, Normal Inspection, Normal Range of Motion ( except right leg in CPM machine), Non Tender, No Calf Tenderness, No Pedal Edema Neurologic/Psychiatric: Alert, Oriented x3, No Motor/Sensory Deficits, Normal Mood/Affect Skin: Normal Color, Warm/Dry Lymphatic: No Adenopathy Results Lab Laboratory Tests 05/28/18 07:09 05/29/18 05:55 Assessment/Plan Assessment/Plan Osteoarthritis S/p total knee replacement Hx of severe COPD -SVNS change to easy PAP with DuoNeb -Currently on oxygen. Pt does not have home oxygen. she may need it upon discharge. Atelectasis -Change SVN to easy pap and start IS Hypoxia -Oxygen NIDDM II CAD AYAZ LUCIANO DO May 29, 2018 07:09
[2018-05-29 08:00] VITALS: BP 112/60
[2018-05-29] MEDS ORDERED: RT-ADVAIR HFA 115/21 MCG PER PUFF IH SCH (08:00)
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
[2018-05-29] MEDS: SENNA W/DOCUSATE (SENOKOT S) TABLET PO SCH ×2 (08:58→21:12)
[2018-05-29] MEDS: ENOXAPARIN 30 MG/0.3 ML (LOVENOX) SYR SC SCH ×2 (08:59→21:11)
[2018-05-29] MEDS: DILTIAZEM 240 MG (CARDIZEM CD) CAP PO SCH (08:59)
[2018-05-29] MEDS: predniSONE 10 MG TAB PO SCH (08:59)
[2018-05-29] MEDS: FAMOTIDINE 20 MG (PEPCID) TABLET PO SCH ×2 (08:59→21:13)
[2018-05-29] MEDS: RIFAXIMIN 550 MG TABLET (XIFAXAN) PO SCH ×3 (08:59→21:13)
[2018-05-29] MEDS: PRIMIDONE 250MG (MYSOLINE) TAB PO SCH ×2 (08:59→21:13)
[2018-05-29] MEDS: SERTRALINE 100 MG (ZOLOFT) TAB PO SCH (08:59)
[2018-05-29] MEDS: OXYBUTYNIN (DITROPAN) 5 MG TAB PO SCH ×2 (08:59→21:12)
[2018-05-29] MEDS: GABAPENTIN 400 MG (NEURONTIN) CAP PO SCH ×4 (08:59→21:12)
[2018-05-29] MEDS: ASPIRIN E.C. 81 MG (ECOTRIN) TAB PO SCH (08:59)
[2018-05-29] MEDS: LORATADINE (CLARITIN) 10 MG TAB PO SCH (08:59)
[2018-05-29] MEDS: lamoTRIgine 25 MG (LaMICtal) TAB PO SCH ×3 (08:59→21:13)
[2018-05-29] MEDS: clonazePAM 1 MG (KlonoPIN) TAB PO SCH ×2 (09:00→21:13)
[2018-05-29] MEDS: CEFDINIR 300 MG (OMNICEF) CAP PO SCH ×2 (09:00→21:12)
[2018-05-29] MEDS: FUROSEMIDE 20 MG (LASIX) TAB PO SCH (09:00)
--- NOTE | 2018-05-29 09:39 | Physical Therapy Daily Note ---
PT Daily Note-Current Subjective Pt in bed and agreed to PT. Pt reports she is sore today. Pain Numeric Pain Scale: 10-Worst Possible Pain Location: Right Location Body Site: Knee Mental Status Patient Orientation: Person Attachments: Oxygen (5L), Polar Pack Transfers Therapy Code Descriptions/Definitions Functional [place] Measure: 0=Not Assessed/NA 4=Minimal Assistance 1=Total Assistance 5=Supervision or Setup 2=Maximal Assistance 6=Modified [place] 3=Moderate Assistance 7=Complete [place] Therapy Quality Codes: 6 Independent with activity with or without an assistive device 5 Patient requires set up or clean up by helper. Patient completes activity by themselves 4 Supervision or touching assist (CGA). [place] provide cues , steadying assist 3 The helper provides less than half the effort to complete the activity 2 The helper provides more than half the effort to complete the activity 1 Dependent. The helper does all the effort to complete an activity 7 Patient refused to complete or attempt activity 9 The patient did not perform the activity before the current illness or injury 88 Not attempted due to Medical conditions or safety concerns Transfers (B, C, W/C) (FIM): 5 Supine to/from Sit: 5 Sit to/from Stand: 5 Weight Bearing Right Lower Extremity: Right Weight Bearing/Tolerated Left Lower Extremity: Left Full Weight Bearing Gait Training Gait (FIM): 6 Distance (FIM): 3=150 ft Distance: 300' Gait Level of Assist: 6 Gait Persons Needed: 1 Gait Assistive Device: FWW Pt is using a step to pattern, slow gait speed Exercises Supine Ex: Ankle pumps, Quad Set, Heel Slides, Short Arc Quads, Straight leg raise Supine Reps: 10 Assessment Current Status: Good Progress Pt was able to perform bed mobility with SBA. Pt transfers SBA to FWW. Pt amb 300' with FWW and O2 5L. Pt performed supine LE ex in bed and agreed to CPM machine at flex 70 and -3 ext. Pt is in bed with all needs met. PT Short Term Goals Short Term Goals Time Frame: Jun 03, 2018 Transfers (B,C,W/C) (FIM): 5 Gait (FIM): 5 Distance (FIM): 3=150 ft Gait Distance Comment: 150' Gait Level of Assist: 5 Gait Assistive Device: Walker 4 Wheeled PT Plan Problem List Problem List: Activity Tolerance, Functional Strength, Safety, Balance, Gait, Transfer, Bed Mobility, ROM Treatment/Plan Treatment Plan: Continue Plan of Care Treatment Plan: Bed Mobility, Education, Functional Activity [place], Functional Strength, Gait, Safety, Therapeutic Exercise, Transfers Treatment Duration: Jun 03, 2018 Frequency: 11 times per week Estimated Hrs Per Day: .25 hour per day Patient and/or Family Agrees t: Yes Time/GCodes Time In: 806 Time Out: 835 Total Billed Treatment Time: 29 Total Billed Treatment 1 visit EX 14 min GT 15 min ZOYA HANNON PT May 29, 2018 09:39
--- NOTE | 2018-05-29 09:47 | NUR ---
Inpatient rehab evaluation Notified by [facility] that inpatient rehab admission has been denied. Dr. Painter notified. No appeal/[id number] scheduled at this time.
[2018-05-29] MEDS: RT-ADVAIR HFA 115/21 MCG PER PUFF IH SCH ×2 (10:15→21:29)
--- NOTE | 2018-05-29 10:49 | Occupational Ther Daily Note ---
OT Current Status-Daily Note Subjective Pt alert and complaining of pain through her affected right knee upon OT arrival. Pt willing to cooperate with therapy services, however she declined a shower due to pain levels. Pain Numeric Pain Scale: 7 Location: Right Location Body Site: Knee Pain Description: Heavy Comment: Nursing staff notified of pt's pain. Mental Status/Objective Therapy Code Descriptions/Definitions Functional [place] Measure: 0=Not Assessed/NA 4=Minimal Assistance 1=Total Assistance 5=Supervision or Setup 2=Maximal Assistance 6=Modified [place] 3=Moderate Assistance 7=Complete [place] Other Treatment Pt participated in bed mobility, unsupported sitting balance training, and seated EOB BUE ther ex in order to improve pt's UE strength as she will likely utilize UE's much more to compensate for affected RLE. Pt required Zonia and increased time for bed mobility, and demonstrated Good static/dynamic sitting balance at EOB. Pt participated in BUE ther ex with use of yellow theraband, 1x15 reps through gross planes of motion. Pt educated on proper movement patterns. Pt complained of fatigue and required frequent rest breaks due to muscle fatigue. Pt assisted back to supine position following ther ex, and required Zonia for sit to lying positioning. Education OT Patient Education: Correct positioning, Exercise program, Purpose of tx/ functional activities, Transfer techniques Teaching Recipient: Patient Teaching Methods: Discussion Response to Teaching: Verbalize Understanding, Return Demonstration OT Short Term Goals Short Term Goals Time Frame: Jun 04, 2018 Eating(FIM): 5 Grooming(FIM): 5 Bathing(FIM): 5 Upper Body Dressing(FIM): 5 Lower Body Dressing(FIM): 4 Toileting(FIM): 5 Transfers (B,C,W/C) (FIM): 5 Toilet/Commode Transfer(FIM): 5 Shower Transfer(FIM): 4 Additional Short Term Goals: 1-Demonstrate ADL Tasks, 2-Verbalize Understanding , 3-ImproveStrength/Allison 1=Demonstrate adherence to instructed precautions during ADL tasks. 2=Patient will verbalize/demonstrate understanding of assistive devices/ modifications for ADL. 3=Patient will improve strength/tolerance for activity to enable patient to perform ADL's. OT Precision Farming Coordinator Goals Precision Farming Coordinator Goals Time Frame: Jun 11, 2018 Eating (FIM): 6 Grooming(FIM): 6 Bathing(FIM): 5 Upper Body Dressing(FIM): 6 Lower Body Dressing(FIM): 6 Toileting(FIM): 6 Transfers (B,C,W/C) (FIM): 6 Toilet/Commode Transfer(FIM): 6 Shower Transfer(FIM): 5 Additional Goals: 1-Demonstrate ADL Tasks, 2-Verbalize Understanding, 3- ImproveStrength/Allison 1=Demonstrate adherence to instructed precautions during ADL tasks. 2=Patient will verbalize/demonstrate understanding of assistive devices/ modifications for ADL. 3=Patient will improve strength/tolerance for activity to enable patient to perform ADL's. OT Education/Plan Discharge Recommendations Plan/Recommendations: Continue POC Treatment Plan/Plan of Care Patient would benefit from OT for education, treatment and training to promote independence in ADL's, mobility, safety and/or upper extremity function for ADL' s. Plan of Care: ADL Retraining, Functional Mobility, UE Funct Exercise/Act Treatment Duration: Jun 11, 2018 Frequency: 5 times per week Estimated Hrs Per Day: .25 hour per day Agreement: Yes Rehab Potential: Good Time/GCodes Start Time: 10:20 Stop Time: 10:45 Total Time Billed (hr/min): 25 Billed Treatment Time 1, FA1, TE1 MARCUS MOSES OT May 29, 2018 10:49
--- NOTE | 2018-05-29 11:13 | NUR ---
DISCHARGE PLANNING: Patient is likely discharging to home tomorrow. She has a new continuous oxygen requirement of 5LPM et will also have a new need for home health care. Visited with the patient et she reports that she uses [facility] for her oxygen needs et would like to have [facility] for her [facility] needs. She also reports that she will need a portable tank delivered to the hospital for discharge to home. She denies any other equipment or support needs at this time. I followed up [facility] et spoke with customer care representative Cely. She is aware that patient will need a portable tank delivered to her room for planned discharge tomorrow 05/30/18. I also faxed new oxygen order et written request for portable to [facility]. I followed up with [facility] et spoke with customer care representative Desiree. I faxed her face sheet et scanned insurance cards to Desiree per her request et she is aware that discharge is planned for tomorrow 05/30/18. I updated her primary care nurse Melissa TREVINO. No further needs or interventions at this time.
--- NOTE | 2018-05-29 15:03 | Physical Therapy Daily Note ---
PT Daily Note-Current Subjective Pt in recliner and agrees to PT. Requests that she order some food when she is done. Pain Numeric Pain Scale: 10-Worst Possible Pain Location: Right Location Body Site: Knee Mental Status Patient Orientation: Person Attachments: Oxygen (5L) Transfers Therapy Code Descriptions/Definitions Functional [place] Measure: 0=Not Assessed/NA 4=Minimal Assistance 1=Total Assistance 5=Supervision or Setup 2=Maximal Assistance 6=Modified [place] 3=Moderate Assistance 7=Complete [place] Therapy Quality Codes: 6 Independent with activity with or without an assistive device 5 Patient requires set up or clean up by helper. Patient completes activity by themselves 4 Supervision or touching assist (CGA). [place] provide cues , steadying assist 3 The helper provides less than half the effort to complete the activity 2 The helper provides more than half the effort to complete the activity 1 Dependent. The helper does all the effort to complete an activity 7 Patient refused to complete or attempt activity 9 The patient did not perform the activity before the current illness or injury 88 Not attempted due to Medical conditions or safety concerns Transfers (B, C, W/C) (FIM): 6 Sit to/from Stand: 6 Weight Bearing Right Lower Extremity: Right Weight Bearing/Tolerated Left Lower Extremity: Left Full Weight Bearing Gait Training Gait (FIM): 6 Distance (FIM): 3=150 ft Distance: 320 Gait Level of Assist: 6 Gait Persons Needed: 1 Gait Assistive Device: FWW Pt amb with step to pattern Exercises Seated Therapy Exercises: Ankle pumps, Long arc quads, Hip flexion Seated Reps: 10 Assessment Current Status: Fair Progress Pt was able to perform transfers as mod I. Pt amb 320' with FWW mod I and PT assisted with O2 5L. During amb pt reports "I'm seeing things crawling on the floor, black ants." SPT instructed pt to take bigger steps during amb, pt unable to do so. Pt returned to room and performed seated LE ex. Pt was able to call in for food. Pt has all needs met in recliner. PT Short Term Goals Short Term Goals Time Frame: Jun 03, 2018 Transfers (B,C,W/C) (FIM): 5 Gait (FIM): 5 Distance (FIM): 3=150 ft Gait Distance Comment: 150' Gait Level of Assist: 5 Gait Assistive Device: Walker 4 Wheeled PT Plan Problem List Problem List: Activity Tolerance, Functional Strength, Safety, Balance, Gait, Transfer, Bed Mobility, ROM Treatment/Plan Treatment Plan: Continue Plan of Care Treatment Plan: Bed Mobility, Education, Functional Activity Allison, Functional Strength, Gait, Safety, Therapeutic Exercise, Transfers Treatment Duration: Jun 03, 2018 Frequency: 11 times per week Estimated Hrs Per Day: .25 hour per day Patient and/or Family Agrees t: Yes Time/GCodes Time In: 1414 Time Out: 1437 Total Billed Treatment 1 visit GT 13 min EX 10 min ZOYA HANNON PT May 29, 2018 15:02
[2018-05-29 16:47] VITALS: BP 105/69
[2018-05-29] MEDS: rOPINIRole 1 MG (REQUIP) TABLET PO SCH (21:12)
[2018-05-29] MEDS: MONTELUKAST 10 MG (SINGULAIR) TAB PO SCH (21:12)
[2018-05-29] MEDS: inSUlin ASPART (NovoLOG) 1 UNIT/0.01 ML (CHARGE PER UNIT) SC SCH (21:12)
[2018-05-29] MEDS: DONEPEZIL 10 MG (ARICEPT) TAB PO SCH (21:13)
[2018-05-29] MEDS: MEMANTINE 10 MG (NAMENDA) TABLET PO SCH (21:13)
[2018-05-29] MEDS: traZODone 100 MG (DESYREL) TAB PO SCH (21:13)
[2018-05-29] MEDS: MIRTAZAPINE 15 MG (REMERON) TAB PO SCH (21:13)
[2018-05-29] MEDS: UMECLIDINIUM BROMIDE (INCRUSE ELLIPTA) 7'S IH SCH (21:29)
[2018-05-30] VITALS: BP 118/72
[2018-05-30] MEDS: RT-ALBUTEROL/IPRATROPIUM 3 ML (DUONEB) VIAL INH SCH ×3 (03:27→10:44)
[2018-05-30] MEDS: PANTOPRAZOLE 40 MG (PROTONIX) TAB PO SCH (06:45)
[2018-05-30] MEDS: MULTIVIT W/MINERALS TAB (THERAGRAN M) PO SCH (06:45)
[2018-05-30] MEDS: inSUlin ASPART (NovoLOG) 1 UNIT/0.01 ML (CHARGE PER UNIT) SC SCH (06:45)
[2018-05-30] MEDS: VENlafaxine XR 75 MG (EFFEXOR XR) CAP PO SCH (06:46)
[2018-05-30] MEDS: SUCRALFATE 1 GM (CARAFATE) TAB PO SCH (06:46)
[2018-05-30 07:03] LABS: HEMOGLOBIN 11.2 G/DL (11.5-16.0)
--- NOTE | 2018-05-30 07:43 | Pulmonary Progress Note ---
Sepsis Event Evaluation Height, Weight, BMI Height: 5'3.00" Weight: 174lbs. 3.0oz. [id number]; 30.7 BMI Method:Stated Exam Exam Vital Signs Date Time Temp Pulse Resp B/P (MAP) Pulse Ox O2 Delivery O2 Flow Rate FiO2 05/30/18 06:49 92 Nasal Cannula 5.00 05/30/18 03:27 91 Nasal Cannula 5.00 05/30/18 00:00 98.7 109 19 118/72 (87) 95 Room Air 05/29/18 21:37 94 Nasal Cannula 5.00 05/29/18 21:36 92 Nasal Cannula 5.00 05/29/18 21:29 91 Nasal Cannula 5.00 05/29/18 20:00 Nasal Cannula 3.00 05/29/18 16:47 98.1 100 18 105/69 (81) 94 Nasal Cannula 5.00 05/29/18 13:24 92 Nasal Cannula 5.00 05/29/18 10:49 95 5.00 05/29/18 10:15 95 Nasal Cannula 5.00 05/29/18 10:15 95 5.00 05/29/18 08:00 97.0 110 16 112/60 (77) 96 Nasal Cannula 3.00 05/29/18 08:00 Nasal Cannula 3.00 I & O 05/30/18 07:00 Intake Total 1390 ml Output Total 1350 ml Balance 40 ml Height & Weight Height: 5'3.00" Weight: 174lbs. 3.0oz. 79.413962ie; 30.7 BMI Method:Stated General Appearance: No Apparent Distress, WD/WN, Chronically ill HEENT: PERRL/EOMI, Normal ENT Inspection, Pharynx Normal Neck: Full Range of Motion, Normal Inspection, Non Tender, Supple, Carotid Bruit Respiratory: Chest Non Tender, Lungs Clear, Normal Breath Sounds, No Accessory Muscle Use, No Respiratory Distress, Decreased Breath Sounds Cardiovascular: Regular Rate, Rhythm, No Edema, No Gallop, No JVD, No Murmur, Normal Peripheral Pulses Extremity: Normal Capillary Refill, Normal Inspection, Normal Range of Motion ( except right leg in CPM machine), Non Tender, No Calf Tenderness, No Pedal Edema Neurologic/Psychiatric: Alert, Oriented x3, No Motor/Sensory Deficits, Normal Mood/Affect Skin: Normal Color, Warm/Dry Lymphatic: No Adenopathy Results Lab Laboratory Tests 05/29/18 05:55 05/30/18 06:40 Assessment/Plan Assessment/Plan Osteoarthritis S/p total knee replacement Hx of severe COPD -SVNS change to easy PAP with DuoNeb -Currently on oxygen. she may need portable 02 upon discharge. -She does home nocturnal 02 at home Atelectasis -Change SVN to easy pap and start IS Hypoxia -Oxygen NIDDM II CAD AYAZ LUCIANO DO May 30, 2018 07:43
[2018-05-30 08:00] VITALS: BP 133/72
[2018-05-30] MEDS: predniSONE 10 MG TAB PO SCH (08:54)
[2018-05-30] MEDS: ENOXAPARIN 30 MG/0.3 ML (LOVENOX) SYR SC SCH (08:54)
[2018-05-30] MEDS: GABAPENTIN 400 MG (NEURONTIN) CAP PO SCH (08:54)
[2018-05-30] MEDS: OXYBUTYNIN (DITROPAN) 5 MG TAB PO SCH (08:54)
[2018-05-30] MEDS: FAMOTIDINE 20 MG (PEPCID) TABLET PO SCH (08:55)
[2018-05-30] MEDS: CEFDINIR 300 MG (OMNICEF) CAP PO SCH (08:55)
[2018-05-30] MEDS: SERTRALINE 100 MG (ZOLOFT) TAB PO SCH (08:55)
[2018-05-30] MEDS: oxyCODONE/APAP 5/325MG (PERCOCET 5) TABLET PO PRN (08:55)
[2018-05-30] MEDS: clonazePAM 1 MG (KlonoPIN) TAB PO SCH (08:55)
[2018-05-30] MEDS: SENNA W/DOCUSATE (SENOKOT S) TABLET PO SCH (08:55)
[2018-05-30] MEDS: lamoTRIgine 25 MG (LaMICtal) TAB PO SCH (08:55)
[2018-05-30] MEDS: ASPIRIN E.C. 81 MG (ECOTRIN) TAB PO SCH (08:56)
[2018-05-30] MEDS: FUROSEMIDE 20 MG (LASIX) TAB PO SCH (08:56)
[2018-05-30] MEDS: LORATADINE (CLARITIN) 10 MG TAB PO SCH (08:56)
[2018-05-30] MEDS: DILTIAZEM 240 MG (CARDIZEM CD) CAP PO SCH (08:56)
[2018-05-30] MEDS: RIFAXIMIN 550 MG TABLET (XIFAXAN) PO SCH (09:04)
[2018-05-30] MEDS: PRIMIDONE 250MG (MYSOLINE) TAB PO SCH (09:04)
--- NOTE | 2018-05-30 09:11 | Physical Therapy Daily Note ---
PT Daily Note-Current Subjective States that she is going to go home today. Pain Numeric Pain Scale: 8 Location: Right Location Body Site: Knee Transfers Therapy Code Descriptions/Definitions Functional [place] Measure: 0=Not Assessed/NA 4=Minimal Assistance 1=Total Assistance 5=Supervision or Setup 2=Maximal Assistance 6=Modified [place] 3=Moderate Assistance 7=Complete [place] Therapy Quality Codes: 6 Independent with activity with or without an assistive device 5 Patient requires set up or clean up by helper. Patient completes activity by themselves 4 Supervision or touching assist (CGA). [place] provide cues , steadying assist 3 The helper provides less than half the effort to complete the activity 2 The helper provides more than half the effort to complete the activity 1 Dependent. The helper does all the effort to complete an activity 7 Patient refused to complete or attempt activity 9 The patient did not perform the activity before the current illness or injury 88 Not attempted due to Medical conditions or safety concerns Transfers (B, C, W/C) (FIM): 4 Scootin Rollin Supine to/from Sit: 4 Sit to/from Stand: 4 Weight Bearing Right Lower Extremity: Right Weight Bearing/Tolerated Left Lower Extremity: Left Full Weight Bearing Gait Training Gait (FIM): 5 Distance (FIM): 3=150 ft Distance: 250' Gait Level of Assist: 5 Gait Persons Needed: 1 Gait Assistive Device: FWW Exercises Supine Ex: LE Protocol Supine Reps: 10 Assessment Current Status: Good Progress Patient had SOB during gait today. PT Short Term Goals Short Term Goals Time Frame: Jun 03, 2018 Transfers (B,C,W/C) (FIM): 5 Gait (FIM): 5 Distance (FIM): 3=150 ft Gait Distance Comment: 150' Gait Level of Assist: 5 Gait Assistive Device: Walker 4 Wheeled PT Plan Treatment/Plan Treatment Plan: Continue Plan of Care Treatment Plan: Bed Mobility, Education, Functional Activity Allison, Functional Strength, Gait, Safety, Therapeutic Exercise, Transfers Treatment Duration: Jun 03, 2018 Frequency: 11 times per week Estimated Hrs Per Day: .25 hour per day Patient and/or Family Agrees t: Yes Time/GCodes Time In: 835 Time Out: 900 Total Billed Treatment Time: 25 Total Billed Treatment 1, EX x 15, GT x 10 RIVERA MEDEIROS PT May 30, 2018 09:11
--- NOTE | 2018-05-30 10:28 | Progress Note-Standard ---
Standard Progress Note Progress Notes/Assess & Plan Date Seen by a Provider: May 30, 2018 Time Seen by a Provider: 10:27 Progress/Assessment & Plan no complaints radiographs--HW well positioned without fracture RLE--brisk cap refill with equal pulses sensation intact throughout intact DF and PF of toes and ankle s/p RTKA mobilize as able Final Diagnosis no complaints Vital Signs Date Time Temp Pulse Resp B/P (MAP) Pulse Ox O2 Delivery O2 Flow Rate FiO2 05/30/18 08:00 98.2 110 16 133/72 (92) 6 Nasal Cannula 3.00 05/30/18 06:49 92 Nasal Cannula 5.00 05/30/18 03:27 91 Nasal Cannula 5.00 05/30/18 00:00 98.7 109 19 118/72 (87) 95 Room Air 05/29/18 21:37 94 Nasal Cannula 5.00 05/29/18 21:36 92 Nasal Cannula 5.00 05/29/18 21:29 91 Nasal Cannula 5.00 05/29/18 20:00 Nasal Cannula 3.00 05/29/18 16:47 98.1 100 18 105/69 (81) 94 Nasal Cannula 5.00 05/29/18 13:24 92 Nasal Cannula 5.00 05/29/18 10:49 95 5.00 I & O 05/30/18 07:00 Intake Total 1390 ml Output Total 1350 ml Balance 40 ml Laboratory Tests Test 05/29/18 16:45 05/29/18 20:29 05/30/18 05:56 05/30/18 06:40 Range/Units Glucometer 221 H 155 H 147 H 70-110 MG/DL Hemoglobin 11.2 L 11.5-16.0 G/DL Hematocrit 36 35-52 % RLE--dressing intact. No calf tenderness. SLR fwith assistance s/p RKA doing well DC home ERIC BROOKE MD May 30, 2018 10:28
[2018-05-30] MEDS: RT-ADVAIR HFA 115/21 MCG PER PUFF IH SCH (10:44)
[2018-05-30 13:35] VITALS: BP 133/72
--- NOTE | 2018-05-30 23:40 | DISCHARGE SUMMARY ---
DATE OF SERVICE: DISCHARGE DIAGNOSES: 1. Right knee primary osteoarthritis. 2. Diabetes mellitus. 3. Cervical disk disease. 4. History of deep venous thrombosis. 5. Osteoporosis. 6. Atrial fibrillation. 7. Restless legs syndrome. 8. Anxiety. 9. Scoliosis. 10. Cubital tunnel. 11. Lumbar stenosis. PROCEDURE: Right total knee arthroplasty. SUMMARY: The patient is a 62-year-old female who was admitted on the day of right total knee arthroplasty, which she underwent without complications. Postoperatively, she did very well. At the time of discharge, her wound was clean and dry. She had no calf tenderness. Negative Homans sign. She cleared physical therapy. She is tolerating her diet well and tolerating pain with oral pain medication. CONDITION AT DISCHARGE: Good. DISCHARGE DIET: Regular. FOLLOWUP: Followup is in three weeks. DISCHARGE MEDICATIONS: Home medications are Percocet as needed for pain and aspirin. Job ID: [id number] DocumentID: [id number] Dictated Date: 05/30/2018 10:27:16 Band Sawmill Operator Date: 05/30/2018 23:39:26 Dictated By: ERIC BROOKE MD
== END 2018-05-30 13:37 | disposition home health service (06) | DRG 470 ==
LOC: 4TH 06:10 → SURG 06:11 → 4TH 09:57
PROVIDERS: ADMIT Orthopaedic Surgery; ATTEND Orthopaedic Surgery
PROC: 0SRC0J9 Replacement of Right Knee Joint with Synthetic Substitute, Cemented, Open Approach (ICD-10-PCS; principal; 2018-05-27 07:26)
DX: M17.11 Unilateral primary osteoarthritis, right knee (principal); J43.9 Emphysema, unspecified; J20.9 Acute bronchitis, unspecified; J98.11 Atelectasis; R09.02 Hypoxemia; J30.2 Other seasonal allergic rhinitis; F17.210 Nicotine dependence, cigarettes, uncomplicated; M48.061 Spinal stenosis, lumbar region without neurogenic claudication; T23.221D Burn of second degree of single right finger (nail) except thumb, subsequent encounter; X08.0 Exposure to bed fire; M81.0 Age-related osteoporosis without current pathological fracture; I48.2 Chronic atrial fibrillation; I25.10 Atherosclerotic heart disease of native coronary artery without angina pectoris; I10 Essential (primary) hypertension; E78.2 Mixed hyperlipidemia; G25.81 Restless legs syndrome; E11.51 Type 2 diabetes mellitus with diabetic peripheral angiopathy without gangrene; E11.40 Type 2 diabetes mellitus with diabetic neuropathy, unspecified; F41.9 Anxiety disorder, unspecified; F32.9 Major depressive disorder, single episode, unspecified; M41.9 Scoliosis, unspecified; K21.9 Gastro-esophageal reflux disease without esophagitis; K22.70 Barrett's esophagus without dysplasia; E03.9 Hypothyroidism, unspecified; M79.7 Fibromyalgia; K44.9 Diaphragmatic hernia without obstruction or gangrene; R13.10 Dysphagia, unspecified; Z86.718 Personal history of other venous thrombosis and embolism; Z96.652 Presence of left artificial knee joint; Z99.81 Dependence on supplemental oxygen
CPT/HCPCS: 36415; 71045; 73560; 80053; 82962; 85014; 85018; 85025; 86850; 86900; 86901; 94640; 94664; 94760; 94761

== ENCOUNTER → 2018-07-03 | Outpatient (CLI) | payer MEDICARE, MEDICAID ==
[~2018-07-03] MED LIST changes: -LAMO25TA PO; +LAMO25TA8 PO
[2018-07-03 08:28] LABS: ALANINE AMINOTRANSFERASE 13 U/L (0-55); ALKALINE PHOSPHATASE 99 U/L (40-136); BILIRUBIN,TOTAL 0.3 MG/DL (0.1-1.0); BUN/CREATININE RATIO 10; CALCIUM 9.6 MG/DL (8.5-10.1); CARBON DIOXIDE 24 MMOL/L (21-32); CHLORIDE 106 MMOL/L (98-107); CHOLESTEROL 192 MG/DL (< 200); CREATININE SERUM 0.69 MG/DL (0.60-1.30); GFR ESTIMATED > 60; GLUCOSE 105 MG/DL (70-105); HDL CHOLESTEROL 52 MG/DL (40-60); SODIUM 142 MMOL/L (135-145); TOTAL PROTEIN 6.8 GM/DL (6.4-8.2); TRIGLYCERIDES 256 MG/DL (<150); VLDL CHOLESTEROL 51 MG/DL (5-40)
== END ==
LOC: LAB 07:57
PROVIDERS: ATTEND Nurse Practitioner Family
DX: I48.92 Unspecified atrial flutter (principal); I25.10 Atherosclerotic heart disease of native coronary artery without angina pectoris; I77.89 Other specified disorders of arteries and arterioles; E78.5 Hyperlipidemia, unspecified; I73.9 Peripheral vascular disease, unspecified
CPT/HCPCS: 36415; 80053; 80061

== ENCOUNTER 2018-07-08 12:26 | Outpatient (RCR) | payer MEDICARE, MEDICAID, OTHER ==
[~2018-07-08 12:26] MED LIST changes: -TRAZ-189 PO; +TRAZ-222 PO
== END 2018-10-06 | disposition home or self-care (01) ==
LOC: CARD 12:26
PROVIDERS: ATTEND Nurse Practitioner Family
DX: R00.2 Palpitations (principal); I48.92 Unspecified atrial flutter

== ENCOUNTER 2018-08-07 10:02 | Outpatient (RCR) | payer MEDICARE, MEDICAID ==
[~2018-08-07 10:02] MED LIST changes: +TRAZ-189 PO; -TRAZ-222 PO
== END 2018-08-07 10:44 | disposition home or self-care (01) ==
PROVIDERS: ATTEND Orthopaedic Surgery
DX: Z47.1 Aftercare following joint replacement surgery (principal); Z96.651 Presence of right artificial knee joint

== ENCOUNTER → 2018-08-11 | Outpatient (CLI) | payer MEDICARE, MEDICAID ==
[2018-08-11 14:30] LABS: BASOPHILS % (AUTO) 0 % (0-10); EOSINOPHILS # (AUTO) 0.1 10^3/uL (0.0-0.3); EOSINOPHILS % (AUTO) 1 % (0-10); HEMATOCRIT 39 % (35-52); HEMOGLOBIN 12.4 G/DL (11.5-16.0); LYMPHOCYTES # (AUTO) 2.3 X 10^3 (1.0-4.0); LYMPHOCYTES % (AUTO) 30 % (12-44); MEAN CORPUSCULAR HEMOGLOBIN 27 PG (25-34); MEAN CORPUSCULAR HGB CONC 32 G/DL (32-36); MEAN CORPUSCULAR VOLUME 83 FL (80-99); MEAN PLATELET VOLUME 9.6 FL (7.4-10.4); MONOCYTES # (AUTO) 0.8 X 10^3 (0.0-1.0); MONOCYTES % (AUTO) 10 % (0-12); NEUTROPHILS # (AUTO) 4.6 X 10^3 (1.8-7.8); NEUTROPHILS % (AUTO) 59 % (42-75); PLATELET COUNT 296 10^3/uL (130-400); WHITE BLOOD COUNT 7.8 10^3/uL (4.3-11.0)
== END ==
LOC: LAB 14:12
PROVIDERS: ATTEND Nurse Practitioner Family
DX: J44.9 Chronic obstructive pulmonary disease, unspecified (principal)
CPT/HCPCS: 36415; 85025

== ENCOUNTER → 2018-08-11 | Outpatient (CLI) | payer MEDICARE, MEDICAID ==
--- NOTE | 2018-08-12 07:51 | Diagnostic Imaging Report ---
INDICATION: COPD COMPARISON: 05/27/2018. FINDINGS: Frontal and lateral views of the chest demonstrate normal heart size and pulmonary vascularity. The lungs are clear. There are no signs of infiltrate, pleural effusions or pneumothoraces. The visualized osseous structures show no acute abnormalities. IMPRESSION: 1. No acute process. No signs of infiltrates, effusions or pneumothoraces. Dictated by: Dictated on workstation # [id number]
== END ==
LOC: RAD 09:18
PROVIDERS: ATTEND Nurse Practitioner Family
DX: J43.8 Other emphysema (principal)
CPT/HCPCS: 71046

== ENCOUNTER → 2018-08-11 | Outpatient (CLI) | payer MEDICARE, MEDICAID | LOC: CARD 09:13 | PROVIDERS: ATTEND Nurse Practitioner Family | DX: I48.92 Unspecified atrial flutter (principal); R06.09 Other forms of dyspnea; I25.10 Atherosclerotic heart disease of native coronary artery without angina pectoris; I77.9 Disorder of arteries and arterioles, unspecified; R00.2 Palpitations; I10 Essential (primary) hypertension; I08.1 Rheumatic disorders of both mitral and tricuspid valves | CPT/HCPCS: 93306 ==

== ENCOUNTER 2018-09-22 13:00 | Outpatient (RCR) | payer MEDICARE, MEDICAID | END 2018-09-22 16:00 | disposition home or self-care (01) | PROVIDERS: ATTEND Nurse Practitioner | DX: M19.031 Primary osteoarthritis, right wrist (principal); E11.40 Type 2 diabetes mellitus with diabetic neuropathy, unspecified; J44.9 Chronic obstructive pulmonary disease, unspecified; K21.9 Gastro-esophageal reflux disease without esophagitis; M06.9 Rheumatoid arthritis, unspecified; M81.0 Age-related osteoporosis without current pathological fracture; F41.9 Anxiety disorder, unspecified; F32.9 Major depressive disorder, single episode, unspecified; G25.81 Restless legs syndrome; Z86.73 Personal history of transient ischemic attack (TIA), and cerebral infarction without residual deficits; Z96.653 Presence of artificial knee joint, bilateral ==

== ENCOUNTER → 2018-09-22 | Outpatient (CLI) | payer MEDICARE, MEDICAID ==
[~2018-09-22] MED LIST changes: -TRAZ-189 PO; +TRAZ-222 PO
== END ==
LOC: LAB 07:42
PROVIDERS: ATTEND Family Medicine
DX: E55.9 Vitamin D deficiency, unspecified (principal)
CPT/HCPCS: 36415; 82306

== ENCOUNTER → 2018-09-29 | Outpatient (CLI) | payer MEDICARE, MEDICAID | LOC: LAB 07:20 | PROVIDERS: ATTEND Nurse Practitioner Family | DX: M81.0 Age-related osteoporosis without current pathological fracture (principal) | CPT/HCPCS: 36415; 82306 ==

== ENCOUNTER → 2018-09-30 | Outpatient (CLI) | payer MEDICARE, MEDICAID ==
[2018-09-30 08:37] LABS: BILIRUBIN,URINE NEGATIVE (NEGATIVE); CLARITY,URINE SLIGHTLY CLOUDY; COLOR,URINE YELLOW; GLUCOSE, URINE (UA) 4+ (NEGATIVE); KETONES,URINE NEGATIVE (NEGATIVE); LEUKOCYTE ESTERASE ,URINE 3+ (NEGATIVE); NITRITE,URINE NEGATIVE (NEGATIVE); PH,URINE 6 (5-9); PROTEIN,URINE 4+ (NEGATIVE); UROBILINOGEN,URINE NORMAL (NORMAL)
[2018-09-30 08:45] LABS: BACTERIA,URINE LARGE /HPF; RBC,URINE 50-100 /HPF; SQUAMOUS EPITHELIAL CELL,UR 0-2 /HPF; WBC,URINE >100 /HPF
== END ==
LOC: LAB 08:22
PROVIDERS: ATTEND Family Medicine
DX: R82.90 Unspecified abnormal findings in urine (principal)
CPT/HCPCS: 81000; 87077; 87088; 87186

== ENCOUNTER 2018-10-13 11:45 | Emergency (ER) | payer MEDICARE, MEDICAID ==
[~2018-10-13] VITALS: Ht 160 cm; Wt 72.7 kg
--- NOTE | 2018-10-13 13:27 | ED GU-Female ---
General Chief Complaint: - Urinary Stated Complaint: BLADDER TUBE INFECTION Nursing Triage Note: PT STATES SHE WAS SEEN AT [facility] AND SENT HERE FOR AN INFECTED SUPRAPUBIC CATHETER. PT HAS AN APPOINTMENT IN [place] TO HAVE THE TUBE REPLACED ON FRIDAY OF THIS WEEK. PT IS DIABETIC AND STATES VERY THIRSTY LATELY. Nursing Sepsis Screen: No Definite Risk Source: patient Exam Limitations: no limitations History of Present Illness Date Seen by Provider: Oct 13, 2018 Time Seen by Provider: 13:25 Initial Comments To ER with reports of postoperative wound infection. She was seen today at [facility] for a suspected infected suprapubic catheter that was placed 5 weeks ago because "her bladder quit working" by a urologist in [facility]. She denies fevers or chills. She is diabetic per she is a quite a bit of drainage from the ostomy site. She states it is to be removed in 2 days and replaced with a different type of suprapubic catheter. She was seen at [facility] in due to concern for infection was referred to the emergency room. Timing/Duration: getting worse Severity/Quality: moderate Location: suprapubic Radiation: none Activities at Onset: none Prior Genitourinary Problems: none Associated Symptoms: urinary frequency Allergies and Home Medications Allergies Coded Allergies: bacitracin (Verified Allergy, Intermediate, "I BREAK OUT IN A RASH ALL OVER.", 02/09/18) neomycin (Verified Allergy, Intermediate, "I BREAK OUT IN A RASH ALL OVER.", 02/09/18) polymyxin B (Verified Allergy, Intermediate, "I BREAK OUT IN A RASH ALL OVER.", 02/09/18) ibuprofen (Verified Allergy, Mild, RASH, 02/09/18) naproxen (Verified Allergy, Mild, RASH, 02/09/18) Home Medications Albuterol Sulfate 2.5 Mg/3 Ml Vial.neb, 2.5 MG NEB Q6H PRN for SHORTNESS OF BREATH, (Reported) Albuterol Sulfate 18 Gm Hfa.aer.ad, 2 PUFF INH QID PRN for SHORTNESS OF BREATH, (Reported) Alendronate Sodium 70 Mg Tablet, 70 MG PO Sa, (Reported) Apixaban 5 Mg Tablet, 5 MG PO BID, (Reported) Aripiprazole 10 Mg Tablet, 10 MG PO DAILY, (Reported) Budesonide/Formoterol Fumarate 10.2 Gm Hfa.aer.ad, 2 PUFF IH BID, (Reported) Calcium Carbonate 500 Mg Tablet, 500 MG PO DAILY, (Reported) Cefdinir 300 Mg Capsule, 300 MG PO BID, (Reported) Clonazepam 1 Mg Tablet, 1 MG PO BID, (Reported) Colesevelam HCl 625 Mg Tablet, 1,250 MG PO BID, (Reported) TAKES 2 (625MG) TABLETS Dapagliflozin Propanediol 5 Mg Tablet, 5 MG PO DAILY, (Reported) Diltiazem HCl 240 Mg Cap.er.24h, 240 MG PO DAILY, (Reported) Donepezil HCl 10 Mg Tablet, 10 MG PO HS, (Reported) Erenumab-Aooe 70 Mg/1 Ml Auto.injct, 70 MG INJ MONTHLY, (Reported) Ergocalciferol (Vitamin D2) 50,000 Unit Capsule, 50,000 UNIT PO Escalera, (Reported) Fluticasone Propionate 16 Gm [place].susp, 2 SPRAYS NS BID PRN for ALLERGIES, (Reported) Furosemide 20 Mg Tablet, 20 MG PO DAILY, (Reported) Gabapentin 400 Mg Capsule, 400 MG PO QID, (Reported) Lamotrigine 25 Mg Tablet, 25 MG PO TID, (Reported) Levocetirizine Dihydrochloride 5 Mg Tablet, 5 MG PO DAILY, (Reported) Levofloxacin 500 Mg Tablet, 500 MG PO DAILY Prescribed by: SRAVAN BRUCE on 10/13/181401 Memantine HCl 10 Mg Tablet, 10 MG PO HS, (Reported) Mirtazapine 45 Mg Tablet, 45 MG PO HS, (Reported) Montelukast Sodium 10 Mg Tablet, 10 MG PO HS, (Reported) Nystatin 15 Gm Cream..g., 15 GM TP TID Prescribed by: SRAVAN BRUCE on 10/13/181401 Omeprazole 40 Mg Capsule.dr, 40 MG PO DAILY, (Reported) Oxybutynin Chloride 5 Mg Tablet, 5 MG PO BID, (Reported) Oxycodone HCl/Acetaminophen 1 Each Tablet, 1 TAB PO Q4H Prescribed by: ERIC BROOKE on 05/27/18 07 Pantoprazole Sodium 40 Mg Tablet.dr, 40 MG PO BID, (Reported) Prednisone 10 Mg Tab, 10 MG PO DAILY, (Reported) Primidone 250 Mg Tablet, 250 MG PO BID, (Reported) Ranitidine HCl 300 Mg Tablet, 300 MG PO BID, (Reported) Rifaximin 550 Mg Tablet, 550 MG PO TID, (Reported) Ropinirole HCl 2 Mg Tablet, 2 MG PO HS, (Reported) Sertraline HCl 100 Mg Tablet, 100 MG PO DAILY, (Reported) Simvastatin 20 Mg Tablet, 20 MG PO HS, (Reported) Sucralfate 1 Gm Tablet, 1 GM PO ACHS, (Reported) Sumatriptan Succinate 100 Mg Tablet, 100 MG PO UD PRN for MIGRAINE, (Reported) PER MANUF INSTRUCTIONS Tiotropium [place] 1 Inh Aerp, 1 CAP IH HS, (Reported) Tizanidine HCl 2 Mg Tablet, 2 MG PO HS, (Reported) Trazodone HCl 100 Mg Tablet, 200 MG PO HS, (Reported) TAKES 2 (100MG) TABLETS Venlafaxine HCl 75 Mg Cap.er.24h, 75 MG PO DAILY, (Reported) Patient Home Medication List Home Medication List Reviewed: Yes Review of Systems Review of Systems Constitutional: see HPI; No chills, No fever EENTM: see HPI Respiratory: no symptoms reported Cardiovascular: no symptoms reported Genitourinary: no symptoms reported Musculoskeletal: no symptoms reported Skin: see HPI Psychiatric/Neurological: No Symptoms Reported Endocrine: No Symptoms Reported Past Ydwmaip-Jdxbob-Hqtulz Hx Patient Social History Type Used: Cigarettes Former Smoker, Quit: Dec 05, 2016 2nd Hand Smoke Exposure: Yes Recent Foreign Travel: No Contact w/Someone Who Travel: No Recent Infectious Disease Expo: No Recent Hopitalizations: No Immunizations Up To Date Tetanus Booster (TDap): Unknown PED Vaccines UTD: No Date of Pneumonia Vaccine: Nov 11, 2016 Date of Influenza Vaccine: Dec 20, 2017 Seasonal Allergies Seasonal Allergies: No Past Medical History Surgeries: Yes (4 neck surgeries, thumb surgery both hands, bilat carple tunnel) Abdominal, Appendectomy, Bladder Surgery, Cardiac, Gallbladder, Joint Replacement, Orthopedic, Pancreatic, Tubal Ligation Respiratory: Yes Asthma, COPD Currently Using CPAP: No Currently Using BIPAP: No Cardiac: Yes Atrial Fibrillation, Coronary Artery Disease, High Cholesterol, Hypertension, Irregular Heartbeat, Palpitations, Peripheral Vascular Neurological: No Dementia, Headaches /Migraines, Neuropathy 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 Disorders: No 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 Sexually Transmitted Disease: No HIV/AIDS: No Genitourinary: Yes (incotinent at times) UTI-Chronic Gastrointestinal: Yes Gastroesophageal Reflux, Polyps, Hiatal Hernia, Gall Bladder Disease Musculoskeletal: Yes (CBP chronic knee pain) Arthritis Endocrine: Yes Hypothyroidsim, Diabetes, Non-Insulin dep HEENT: Yes (cataracts removed) Cataract Loss of Vision: Denies Hearing Impairment: Denies Cancer: No Psychosocial: No Anxiety, Depression Integumentary: No Psoriasis Blood Disorders: No Adverse Reaction/Blood Tranf: No Family Medical History Cardiovascular disease G8 BROTHER (TRIPLE BYPASS) Diabetes mellitus 19 MOTHER FH: COPD (chronic obstructive pulmonary disease) 19 MOTHER FH: breast cancer 19 MOTHER FHx: brain cancer 19 FATHER No Pertinent Family Hx Physical Exam Vital Signs Vital Signs - First Documented 10/13/18 12:16 Temp 98.4 Pulse 88 Resp 20 B/P (MAP) 123/74 (90) Pulse Ox 96 O2 Delivery Room Air Capillary Refill : Less Than 3 Seconds Height, Weight, BMI Height: 5'3.00" Weight: 160lbs. 6.0oz. [id number]; 30.7 BMI Method:Stated General Appearance: WD/WN, no apparent distress HEENT: PERRL/EOMI, normal ENT inspection Respiratory: no respiratory distress, no accessory muscle use Gastrointestinal: normal bowel sounds, non tender, soft, other (tenderness around the suprapubic catheter. The initial dressing that was placed does have some purulent material that was drained onto it. This is just above a fold of skin, subsequently the fold of skin now has intertrigo and some maceration immediately adjacent to the wound itself, other than this, there is no evidence of cellulitis or induration or abscess. The dressing was removed, wound was cleaned, covered with gauze and OpSite.) Extremities: normal range of motion, non-tender Neurologic/Psychiatric: alert, normal mood/affect, oriented x 3 Skin: normal color, warm/dry Progress/Results/Core Measures Suspected Sepsis Recent Fever Within 48 Hours: Yes Infection Criteria Present: Suspected New Infection New/Unexplained Altered Menta: No Sepsis Screen: No Definite Risk SIRS Temperature:98.4 Pulse: 88 Respiratory Rate: 20 Laboratory Tests 10/13/18 13:21: White Blood Count 8.2 Blood Pressure 123 /74 Mean: 90 Laboratory Tests 10/13/18 13:21: Creatinine 0.68, Platelet Count 328, Total Bilirubin 0.3 Results/Orders Lab Results Laboratory Tests Test 10/13/18 13:21 10/13/18 13:24 10/13/18 13:38 Range/Units White Blood Count 8.2 4.3-11.0 10^3/uL Red Blood Count 4.78 4.35-5.85 10^6/uL Hemoglobin 12.3 11.5-16.0 G/DL Hematocrit 39 35-52 % Mean Corpuscular Volume 81 80-99 FL Mean Corpuscular Hemoglobin 26 25-34 PG Mean Corpuscular Hemoglobin Concent 32 32-36 G/DL Red Cell Distribution Width 17.7 H 10.0-14.5 % Platelet Count 328 130-400 10^3/uL Mean Platelet Volume 9.5 7.4-10.4 FL Neutrophils (%) (Auto) 65 42-75 % Lymphocytes (%) (Auto) 24 12-44 % Monocytes (%) (Auto) 8 0-12 % Eosinophils (%) (Auto) 2 0-10 % Basophils (%) (Auto) 0 0-10 % Neutrophils # (Auto) 5.4 1.8-7.8 X 10^3 Lymphocytes # (Auto) 2.0 1.0-4.0 X 10^3 Monocytes # (Auto) 0.7 0.0-1.0 X 10^3 Eosinophils # (Auto) 0.1 0.0-0.3 10^3/uL Basophils # (Auto) 0.0 0.0-0.1 10^3/uL Sodium Level 135 135-145 MMOL/L Potassium Level 4.3 3.6-5.0 MMOL/L Chloride Level 102 98-107 MMOL/L Carbon Dioxide Level 21 21-32 MMOL/L Anion Gap 12 5-14 MMOL/L Blood Urea Nitrogen 9 7-18 MG/DL Creatinine 0.68 0.60-1.30 MG/DL Estimat Glomerular Filtration Rate > 60 BUN/Creatinine Ratio 13 Glucose Level 103 70-105 MG/DL Calcium Level 9.5 8.5-10.1 MG/DL Corrected Calcium 9.5 8.5-10.1 MG/DL Total Bilirubin 0.3 0.1-1.0 MG/DL Aspartate Amino Transf (AST/SGOT) 21 5-34 U/L Alanine Aminotransferase (ALT/SGPT) 13 0-55 U/L Alkaline Phosphatase 101 40-136 U/L Total Protein 6.7 6.4-8.2 GM/DL Albumin 4.0 3.2-4.5 GM/DL Glucometer 112 H 70-110 MG/DL Urine Color YELLOW Urine Clarity VERY CLOUDY H Urine pH 5 5-9 Urine Specific [place] 1.010 L 1.016-1.022 Urine Protein NEGATIVE NEGATIVE Urine Glucose (UA) 2+ H NEGATIVE Urine Ketones NEGATIVE NEGATIVE Urine Nitrite POSITIVE H NEGATIVE Urine Bilirubin NEGATIVE NEGATIVE Urine Urobilinogen NORMAL NORMAL MG/DL Urine Leukocyte Esterase 3+ H NEGATIVE Urine RBC (Auto) 4+ H NEGATIVE Urine RBC 0-2 /HPF Urine WBC 50-100 H /HPF Urine Crystals NONE /LPF Urine Bacteria MODERATE H /HPF Urine Casts NONE /LPF Urine Mucus NEGATIVE /LPF Urine Yeast MODERATE H /HPF Urine Culture Indicated YES My Orders Orders - SRAVAN BRUCE APRN Cbc With Automated Diff (10/13/18 13:00) Comprehensive Metabolic Panel (10/13/18 13:00) Ua Culture If Indicated (10/13/18 13:00) Wound Culture (10/13/18 13:00) Ed Iv/Invasive Line Start (10/13/18 13:00) Accucheck Stat ONCE (10/13/18 13:00) Urine Culture (10/13/18 13:38) Levofloxacin Tablet (Levaquin Tablet) (10/13/18 14:15) Vital Signs/I&O 10/13/18 12:16 Temp 98.4 Pulse 88 Resp 20 B/P (MAP) 123/74 (90) Pulse Ox 96 O2 Delivery Room Air Capillary Refill : Less Than 3 Seconds Blood Pressure Mean: 90 Departure Communication (Admissions) Based on the most recent culture and sensitivity Levaquin was chosen for empiric treatment of UTI. Impression Primary Impression: Postoperative wound infection Additional Impression: Maceration of skin Disposition: HOME, SELF-CARE Condition: Stable Departure-Patient Inst. Decision time for Depature: 13:27 Referrals: VIPIN GOODMAN DO (PCP/Family) Primary Care Physician Patient Instructions: Urinary Tract Infection, Adult (DC), Wound Care (DC), Wound Infection Add. Discharge Instructions: 1. Keep her appointment with the urologist who placed this on as directed. 5 the cream topically 3 times a day for 5-7 days. Take antibiotics as directed. Return to ER for any concerns. All discharge instructions reviewed with patient and/or family. Voiced understanding. Scripts Nystatin (Nystatin) 15 Gm Cream..g. 15 GM TP TID, #1 TUBE Prov: SRAVAN BRUCE APRN 10/13/18 Levofloxacin (Levaquin) 500 Mg Tablet 500 MG PO DAILY for 7 Days, #7 TAB Prov: SRAVAN BRUCE APRN 10/13/18 SRAVAN BRUCE APRN Oct 13, 2018 13:27
[2018-10-13 13:36] LABS: BASOPHILS % (AUTO) 0 % (0-10); EOSINOPHILS # (AUTO) 0.1 10^3/uL (0.0-0.3); EOSINOPHILS % (AUTO) 2 % (0-10); HEMATOCRIT 39 % (35-52); HEMOGLOBIN 12.3 G/DL (11.5-16.0); LYMPHOCYTES % (AUTO) 24 % (12-44); MEAN CORPUSCULAR HEMOGLOBIN 26 PG (25-34); MEAN CORPUSCULAR HGB CONC 32 G/DL (32-36); MEAN CORPUSCULAR VOLUME 81 FL (80-99); MEAN PLATELET VOLUME 9.5 FL (7.4-10.4); MONOCYTES # (AUTO) 0.7 X 10^3 (0.0-1.0); MONOCYTES % (AUTO) 8 % (0-12); NEUTROPHILS # (AUTO) 5.4 X 10^3 (1.8-7.8); NEUTROPHILS % (AUTO) 65 % (42-75); PLATELET COUNT 328 10^3/uL (130-400); RED CELL DISTRIBUTION WIDTH 17.7 % (10.0-14.5); WHITE BLOOD COUNT 8.2 10^3/uL (4.3-11.0)
[2018-10-13 13:43] LABS: BILIRUBIN,URINE NEGATIVE (NEGATIVE); CLARITY,URINE VERY CLOUDY; COLOR,URINE YELLOW; GLUCOSE, URINE (UA) 2+ (NEGATIVE); KETONES,URINE NEGATIVE (NEGATIVE); LEUKOCYTE ESTERASE ,URINE 3+ (NEGATIVE); NITRITE,URINE POSITIVE (NEGATIVE); PH,URINE 5 (5-9); PROTEIN,URINE NEGATIVE (NEGATIVE); UROBILINOGEN,URINE NORMAL (NORMAL)
[2018-10-13 13:51] LABS: BACTERIA,URINE MODERATE /HPF; RBC,URINE 0-2 /HPF; WBC,URINE 50-100 /HPF; YEAST,URINE MODERATE /HPF
[2018-10-13 13:53] LABS: ALANINE AMINOTRANSFERASE 13 U/L (0-55); ALKALINE PHOSPHATASE 101 U/L (40-136); BILIRUBIN,TOTAL 0.3 MG/DL (0.1-1.0); BUN/CREATININE RATIO 13; CALCIUM 9.5 MG/DL (8.5-10.1); CARBON DIOXIDE 21 MMOL/L (21-32); CHLORIDE 102 MMOL/L (98-107); CREATININE SERUM 0.68 MG/DL (0.60-1.30); GFR ESTIMATED > 60; GLUCOSE 103 MG/DL (70-105); POTASSIUM 4.3 MMOL/L (3.6-5.0); SODIUM 135 MMOL/L (135-145); TOTAL PROTEIN 6.7 GM/DL (6.4-8.2)
[2018-10-13] MEDS ORDERED: LEVO500T2 PO (14:02)
[2018-10-13] MEDS ORDERED: NYST15CR TP (14:02)
[2018-10-13] MEDS ORDERED: oxyCODONE/APAP 5/325MG (PERCOCET 5) TABLET PO ONE (14:15)
[2018-10-13] MEDS ORDERED: LEVOFLOXACIN 500 MG TAB (LEVAQUIN) PO ONE ×2 (14:15)
[2018-10-13 14:18] VITALS: BP 140/86
[2018-10-17] MEDS ORDERED: AMPI500C9 PO (11:21)
[2018-10-17] MEDS ORDERED: SULF1TAB35 PO (11:21)
[2018-10-17] MEDS ORDERED: FLUC100T PO (11:21)
== END 2018-10-13 14:18 | disposition home or self-care (01) ==
LOC: EDUNIT# 11:45 → ER 11:46
DX: N99.89 Other postprocedural complications and disorders of genitourinary system (principal); L30.4 Erythema intertrigo; J44.9 Chronic obstructive pulmonary disease, unspecified; I10 Essential (primary) hypertension; E78.00 Pure hypercholesterolemia, unspecified; I25.10 Atherosclerotic heart disease of native coronary artery without angina pectoris; I48.91 Unspecified atrial fibrillation; E11.51 Type 2 diabetes mellitus with diabetic peripheral angiopathy without gangrene; E11.40 Type 2 diabetes mellitus with diabetic neuropathy, unspecified; F03.90 Unspecified dementia, unspecified severity, without behavioral disturbance, psychotic disturbance, mood disturbance, and anxiety; G43.909 Migraine, unspecified, not intractable, without status migrainosus; K21.9 Gastro-esophageal reflux disease without esophagitis; E03.9 Hypothyroidism, unspecified; F41.9 Anxiety disorder, unspecified; F32.9 Major depressive disorder, single episode, unspecified; Z86.010 Personal history of colon polyps; Z87.440 Personal history of urinary (tract) infections; Z88.1 Allergy status to other antibiotic agents; Z88.5 Allergy status to narcotic agent; Z88.6 Allergy status to analgesic agent; Z79.51 Long term (current) use of inhaled steroids; Z87.891 Personal history of nicotine dependence; Z77.22 Contact with and (suspected) exposure to environmental tobacco smoke (acute) (chronic); Z90.49 Acquired absence of other specified parts of digestive tract; Z98.51 Tubal ligation status; Z82.49 Family history of ischemic heart disease and other diseases of the circulatory system; Z80.3 Family history of malignant neoplasm of breast
CPT/HCPCS: 36415; 80053; 81000; 82962; 85025; 87070; 87077; 87088; 87186; 87205

== ENCOUNTER 2018-10-29 08:28 | Emergency (ER) | payer MEDICARE, MEDICAID ==
[~2018-10-29] VITALS: Ht 162.6 cm; Wt 72.6 kg
[~2018-10-29 08:28] MED LIST changes: -NITR100C PO
[2018-10-29 08:59] LABS: BILIRUBIN,URINE NEGATIVE (NEGATIVE); CLARITY,URINE CLEAR; COLOR,URINE YELLOW; GLUCOSE, URINE (UA) NEGATIVE (NEGATIVE); KETONES,URINE NEGATIVE (NEGATIVE); LEUKOCYTE ESTERASE ,URINE 3+ (NEGATIVE); NITRITE,URINE NEGATIVE (NEGATIVE); PH,URINE 6 (5-9); PROTEIN,URINE NEGATIVE (NEGATIVE); UROBILINOGEN,URINE NORMAL (NORMAL)
--- NOTE | 2018-10-29 09:04 | ED GU-Female ---
General Chief Complaint: - Urinary Stated Complaint: DIZZINESS;INFECTION;PALE Source: patient Exam Limitations: no limitations History of Present Illness Date Seen by Provider: Oct 29, 2018 Time Seen by Provider: 08:35 Initial Comments Here with report of suprapubic catheter not flowing. She states that she is able to urinate. This is been going on since yesterday. She called her provider in [place] who wanted to see her today if she could make it more told her to go to the emergency department she couldn't. She states that she couldn't make it to [place] so drove here. She does report dizziness and low blood pressure. She states that her blood pressure was 90 systolic. I asked her what her normal blood pressure is she states 90s systolic. Reports eating and drinking okay. Denies fever or chills. Denies nausea or vomiting. Does have long-standing COPD and continues to smoke. She is typically on 3 L via nasal cannula. She did drive here and asked for oxygen in her truck and walked in without that. She is walking without difficulty. Main concern is that her pubic catheter is not flowing. Timing/Duration: constant, yesterday Severity/Quality: moderate, other (low flow) Location: suprapubic Radiation: none Activities at Onset: none Modifying Factors: Improves With Urinating Associated Symptoms: other (decreased urine flow from suprapubic catheter. Is urinating otherwise okay.) Allergies and Home Medications Allergies Coded Allergies: bacitracin (Verified Allergy, Intermediate, "I BREAK OUT IN A RASH ALL OVER.", 02/09/18) neomycin (Verified Allergy, Intermediate, "I BREAK OUT IN A RASH ALL OVER.", 02/09/18) polymyxin B (Verified Allergy, Intermediate, "I BREAK OUT IN A RASH ALL OVER.", 02/09/18) ibuprofen (Verified Allergy, Mild, RASH, 02/09/18) naproxen (Verified Allergy, Mild, RASH, 02/09/18) Home Medications Albuterol Sulfate 2.5 Mg/3 Ml Vial.neb, 2.5 MG NEB Q6H PRN for SHORTNESS OF BREATH, (Reported) Albuterol Sulfate 18 Gm Hfa.aer.ad, 2 PUFF INH QID PRN for SHORTNESS OF BREATH, (Reported) Alendronate Sodium 70 Mg Tablet, 70 MG PO Sa, (Reported) Ampicillin Trihydrate 500 Mg Capsule, 500 MG PO Q6H, (Reported) Apixaban 5 Mg Tablet, 5 MG PO BID, (Reported) Aripiprazole 10 Mg Tablet, 10 MG PO DAILY, (Reported) Budesonide/Formoterol Fumarate 10.2 Gm Hfa.aer.ad, 2 PUFF IH BID, (Reported) Calcium Carbonate 500 Mg Tablet, 500 MG PO DAILY, (Reported) Cefdinir 300 Mg Capsule, 300 MG PO BID, (Reported) Clonazepam 1 Mg Tablet, 1 MG PO BID, (Reported) Colesevelam HCl 625 Mg Tablet, 1,250 MG PO BID, (Reported) TAKES 2 (625MG) TABLETS Dapagliflozin Propanediol 5 Mg Tablet, 5 MG PO DAILY, (Reported) Diltiazem HCl 240 Mg Cap.er.24h, 240 MG PO DAILY, (Reported) Donepezil HCl 10 Mg Tablet, 10 MG PO HS, (Reported) Erenumab-Aooe 70 Mg/1 Ml Auto.injct, 70 MG INJ MONTHLY, (Reported) Ergocalciferol (Vitamin D2) 50,000 Unit Capsule, 50,000 UNIT PO Escalera, (Reported) Fluconazole 100 Mg Tablet, 100 MG PO DAILY, (Reported) Fluticasone Propionate 16 Gm [place].susp, 2 SPRAYS NS BID PRN for ALLERGIES, (Reported) Furosemide 20 Mg Tablet, 20 MG PO DAILY, (Reported) Gabapentin 400 Mg Capsule, 400 MG PO QID, (Reported) Lamotrigine 25 Mg Tablet, 25 MG PO TID, (Reported) Levocetirizine Dihydrochloride 5 Mg Tablet, 5 MG PO DAILY, (Reported) Levofloxacin 500 Mg Tablet, 500 MG PO DAILY Prescribed by: SRAVAN BRUCE on 10/13/181401 Memantine HCl 10 Mg Tablet, 10 MG PO HS, (Reported) Mirtazapine 45 Mg Tablet, 45 MG PO HS, (Reported) Montelukast Sodium 10 Mg Tablet, 10 MG PO HS, (Reported) Nystatin 15 Gm Cream..g., 15 GM TP TID Prescribed by: SRAVAN BRUCE on 10/13/181401 Omeprazole 40 Mg Capsule.dr, 40 MG PO DAILY, (Reported) Oxybutynin Chloride 5 Mg Tablet, 5 MG PO BID, (Reported) Oxycodone HCl/Acetaminophen 1 Each Tablet, 1 TAB PO Q4H Prescribed by: ERIC BROOKE on 05/27/18 0727 Pantoprazole Sodium 40 Mg Tablet.dr, 40 MG PO BID, (Reported) Prednisone 10 Mg Tab, 10 MG PO DAILY, (Reported) Primidone 250 Mg Tablet, 250 MG PO BID, (Reported) Ranitidine HCl 300 Mg Tablet, 300 MG PO BID, (Reported) Rifaximin 550 Mg Tablet, 550 MG PO TID, (Reported) Ropinirole HCl 2 Mg Tablet, 2 MG PO HS, (Reported) Sertraline HCl 100 Mg Tablet, 100 MG PO DAILY, (Reported) Simvastatin 20 Mg Tablet, 20 MG PO HS, (Reported) Sucralfate 1 Gm Tablet, 1 GM PO ACHS, (Reported) Sulfamethoxazole/Trimethoprim 1 Each Tablet, 1 EACH PO BID PRN, (Reported) Sumatriptan Succinate 100 Mg Tablet, 100 MG PO UD PRN for MIGRAINE, (Reported) PER MANUF INSTRUCTIONS Tiotropium [place] 1 Inh Aerp, 1 CAP IH HS, (Reported) Tizanidine HCl 2 Mg Tablet, 2 MG PO HS, (Reported) Trazodone HCl 100 Mg Tablet, 200 MG PO HS, (Reported) TAKES 2 (100MG) TABLETS Venlafaxine HCl 75 Mg Cap.er.24h, 75 MG PO DAILY, (Reported) Patient Home Medication List Home Medication List Reviewed: Yes Review of Systems Review of Systems Constitutional: No fever; weakness EENTM: no symptoms reported Respiratory: no symptoms reported Cardiovascular: no symptoms reported Gastrointestinal: no symptoms reported Genitourinary: no symptoms reported Musculoskeletal: no symptoms reported Psychiatric/Neurological: See HPI, Weakness, Other (dizziness) All Other Systemes Reviewed Negative Unless Noted: Yes Past Sekkbwd-Puxqnp-Vpdhum Hx Past Med/Social Hx: Reviewed Nursing Past Med/Soc Hx Patient Social History Alcohol Use: Denies Use Recreational Drug Use: No Smoking Status: Current Everyday Smoker Type Used: Cigarettes 2nd Hand Smoke Exposure: Yes Recent Hopitalizations: No Immunizations Up To Date Tetanus Booster (TDap): Unknown PED Vaccines UTD: No Date of Pneumonia Vaccine: Nov 11, 2016 Date of Influenza Vaccine: Dec 20, 2017 Seasonal Allergies Seasonal Allergies: No Past Medical History Surgeries: Yes (4 neck surgeries, thumb surgery both hands, bilat carple tunnel) Abdominal, Appendectomy, Bladder Surgery, Cardiac, Gallbladder, Joint Replacement, Orthopedic, Pancreatic, Tubal Ligation Respiratory: Yes Asthma, COPD Currently Using CPAP: No Currently Using BIPAP: No Cardiac: Yes Atrial Fibrillation, Coronary Artery Disease, High Cholesterol, Hypertension, Irregular Heartbeat, Palpitations, Peripheral Vascular Neurological: No Dementia, Headaches /Migraines, Neuropathy 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 Disorders: No 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 Sexually Transmitted Disease: No HIV/AIDS: No Genitourinary: Yes (incotinent at times) UTI-Chronic Gastrointestinal: Yes Gastroesophageal Reflux, Polyps, Hiatal Hernia, Gall Bladder Disease Musculoskeletal: Yes (CBP chronic knee pain) Arthritis Endocrine: Yes Hypothyroidsim, Diabetes, Non-Insulin dep HEENT: Yes (cataracts removed) Cataract Loss of Vision: Denies Hearing Impairment: Denies Cancer: No Psychosocial: No Anxiety, Depression Integumentary: No Psoriasis Blood Disorders: No Adverse Reaction/Blood Tranf: No Family Medical History Reviewed Nursing Family Hx Cardiovascular disease G8 BROTHER (TRIPLE BYPASS) Diabetes mellitus 19 MOTHER FH: COPD (chronic obstructive pulmonary disease) 19 MOTHER FH: breast cancer 19 MOTHER FHx: brain cancer 19 FATHER No Pertinent Family Hx Physical Exam Vital Signs Vital Signs - First Documented 10/29/18 08:33 Temp 96.3 Pulse 78 Resp 20 B/P (MAP) 103/72 (82) Pulse Ox 98 O2 Delivery Nasal Cannula O2 Flow Rate 2.00 Capillary Refill : Height, Weight, BMI Height: 5'3.00" Weight: 160lbs. 6.0oz. 72.265402lf; 30.7 BMI Method:Stated General Appearance: WD/WN, no apparent distress HEENT: PERRL/EOMI, pharynx normal Neck: full range of motion, supple Cardiovascular: regular rate, rhythm, no murmur Respiratory: lungs clear, normal breath sounds Gastrointestinal: non tender, soft Genital/Rectal: other (suprapubic catheter has no urine flow and only a scant amount in the bag.) Back: normal inspection, no CVA tenderness, no vertebral tenderness Extremities: non-tender, normal inspection Neurologic/Psychiatric: alert, oriented x 3 Skin: normal color, warm/dry Progress/Results/Core Measures Suspected Sepsis SIRS Temperature: Pulse: Respiratory Rate: Laboratory Tests 10/29/18 09:00: White Blood Count 6.4 Blood Pressure / Mean: Laboratory Tests 10/29/18 09:00: Platelet Count 257 Results/Orders Lab Results Laboratory Tests Test 10/29/18 08:53 10/29/18 09:00 Range/Units Urine Color YELLOW Urine Clarity CLEAR Urine pH 6 5-9 Urine Specific [place] 1.005 L 1.016-1.022 Urine Protein NEGATIVE NEGATIVE Urine Glucose (UA) NEGATIVE NEGATIVE Urine Ketones NEGATIVE NEGATIVE Urine Nitrite NEGATIVE NEGATIVE Urine Bilirubin NEGATIVE NEGATIVE Urine Urobilinogen NORMAL NORMAL MG/DL Urine Leukocyte Esterase 3+ H NEGATIVE Urine RBC (Auto) 3+ H NEGATIVE Urine RBC 5-10 H /HPF Urine WBC 5-10 H /HPF Urine Crystals NONE /LPF Urine Bacteria NEGATIVE /HPF Urine Casts NONE /LPF Urine Mucus NEGATIVE /LPF Urine Yeast LARGE H /HPF Urine Culture Indicated YES White Blood Count 6.4 4.3-11.0 10^3/uL Red Blood Count 4.97 4.35-5.85 10^6/uL Hemoglobin 12.5 11.5-16.0 G/DL Hematocrit 40 35-52 % Mean Corpuscular Volume 81 80-99 FL Mean Corpuscular Hemoglobin 25 25-34 PG Mean Corpuscular Hemoglobin Concent 31 L 32-36 G/DL Red Cell Distribution Width 18.1 H 10.0-14.5 % Platelet Count 257 130-400 10^3/uL Mean Platelet Volume 9.2 7.4-10.4 FL Neutrophils (%) (Auto) 67 42-75 % Lymphocytes (%) (Auto) 22 12-44 % Monocytes (%) (Auto) 9 0-12 % Eosinophils (%) (Auto) 3 0-10 % Basophils (%) (Auto) 1 0-10 % Neutrophils # (Auto) 4.2 1.8-7.8 X 10^3 Lymphocytes # (Auto) 1.4 1.0-4.0 X 10^3 Monocytes # (Auto) 0.6 0.0-1.0 X 10^3 Eosinophils # (Auto) 0.2 0.0-0.3 10^3/uL Basophils # (Auto) 0.0 0.0-0.1 10^3/uL C-Reactive Protein High Sensitivity 0.42 0.00-0.50 MG/DL My Orders Orders - CRISTIANE MCWILLIAMS MD Cbc With Automated Diff (10/29/18 08:53) Hs C Reactive Protein (10/29/18 08:53) Ua Culture If Indicated (10/29/18 08:53) Catheter(Urinary) Insert & Ass 03,15 (10/29/18 08:53) Urine Culture (10/29/18 08:53) Nitrofurantoin Capsule,Macro (Macrobid C (10/29/18 10:00) Vital Signs/I&O 10/29/18 08:33 Temp 96.3 Pulse 78 Resp 20 B/P (MAP) 103/72 (82) Pulse Ox 98 O2 Delivery Nasal Cannula O2 Flow Rate 2.00 Capillary Refill : Progress Note : Progress Note Seen and evaluated. Suprapubic catheter replaced with 14 [place] Island[place] catheter without difficulty. Urine sample obtained from pressure catheter urine. Good urine flow from catheter now. Given patient's complaint we will go ahead and check some basic labs and send urine for analysis. Monitor patient. 0955: Labs reviewed and UA complete. We will go ahead and treat based on previous culture for urinary tract infection. Patient is okay with that. Nitrofurantoin 100 mg by mouth given. Discharge home with return precautions. Patient verbalize understanding instructions and agreement with plan. She states she is overall feeling better. Departure Impression Primary Impression: Urinary tract infection Qualified Codes: N30.00 - Acute cystitis without hematuria Disposition: HOME, SELF-CARE Condition: Improved Departure-Patient Inst. Decision time for Depature: 10:00 Referrals: VIPIN GOODMAN DO (PCP/Family) Primary Care Physician Patient Instructions: Urinary Tract Infection, Adult (DC) Add. Discharge Instructions: All discharge instructions reviewed with patient and/or family. Voiced understanding. Take medications as directed. Follow-up with your DrLaurie in a few days for recheck. Return for worse pain, fever, vomiting, weakness, breathing problems or other concerns as needed. Scripts Nitrofurantoin Macrocrystal (Nitrofurantoin) 100 Mg Capsule 100 MG PO BID, #13 CAP 0 Refills Prov: CRISTIANE MCWILLIAMS MD 10/29/18 CRISTIANE MWCILLIAMS MD Oct 29, 2018 09:04
[2018-10-29 09:11] LABS: BASOPHILS % (AUTO) 1 % (0-10); EOSINOPHILS # (AUTO) 0.2 10^3/uL (0.0-0.3); EOSINOPHILS % (AUTO) 3 % (0-10); HEMATOCRIT 40 % (35-52); HEMOGLOBIN 12.5 G/DL (11.5-16.0); LYMPHOCYTES # (AUTO) 1.4 X 10^3 (1.0-4.0); LYMPHOCYTES % (AUTO) 22 % (12-44); MEAN CORPUSCULAR HEMOGLOBIN 25 PG (25-34); MEAN CORPUSCULAR HGB CONC 31 G/DL (32-36); MEAN CORPUSCULAR VOLUME 81 FL (80-99); MEAN PLATELET VOLUME 9.2 FL (7.4-10.4); MONOCYTES # (AUTO) 0.6 X 10^3 (0.0-1.0); MONOCYTES % (AUTO) 9 % (0-12); NEUTROPHILS # (AUTO) 4.2 X 10^3 (1.8-7.8); NEUTROPHILS % (AUTO) 67 % (42-75); PLATELET COUNT 257 10^3/uL (130-400); RED CELL DISTRIBUTION WIDTH 18.1 % (10.0-14.5); WHITE BLOOD COUNT 6.4 10^3/uL (4.3-11.0)
[2018-10-29 09:12] LABS: BACTERIA,URINE NEGATIVE /HPF
[2018-10-29 09:13] LABS: YEAST,URINE LARGE /HPF
[2018-10-29] MEDS ORDERED: NITROFURANTOIN 100 MG (MACROBID) CAPSULE PO ONE (10:00)
[2018-10-29] MEDS ORDERED: NITR100C PO (10:01)
[2018-10-29 10:04] VITALS: BP 103/72
== END 2018-10-29 10:04 | disposition home or self-care (01) ==
LOC: EDUNIT# 08:28 → ER 08:29
DX: N39.0 Urinary tract infection, site not specified (principal); J44.9 Chronic obstructive pulmonary disease, unspecified; E11.9 Type 2 diabetes mellitus without complications; I48.91 Unspecified atrial fibrillation; I25.10 Atherosclerotic heart disease of native coronary artery without angina pectoris; I10 Essential (primary) hypertension; E78.00 Pure hypercholesterolemia, unspecified; G62.9 Polyneuropathy, unspecified; G43.909 Migraine, unspecified, not intractable, without status migrainosus; F03.90 Unspecified dementia, unspecified severity, without behavioral disturbance, psychotic disturbance, mood disturbance, and anxiety; K21.9 Gastro-esophageal reflux disease without esophagitis; F41.9 Anxiety disorder, unspecified; F32.9 Major depressive disorder, single episode, unspecified; E03.9 Hypothyroidism, unspecified; F17.210 Nicotine dependence, cigarettes, uncomplicated; Z88.1 Allergy status to other antibiotic agents; Z88.6 Allergy status to analgesic agent; Z88.5 Allergy status to narcotic agent; Z99.81 Dependence on supplemental oxygen; Z79.01 Long term (current) use of anticoagulants; Z79.51 Long term (current) use of inhaled steroids; Z90.49 Acquired absence of other specified parts of digestive tract; Z98.51 Tubal ligation status; Z98.890 Other specified postprocedural states; Z80.3 Family history of malignant neoplasm of breast; Z80.8 Family history of malignant neoplasm of other organs or systems; Z82.49 Family history of ischemic heart disease and other diseases of the circulatory system; Z87.19 Personal history of other diseases of the digestive system; Z96.0 Presence of urogenital implants
CPT/HCPCS: 36415; 81000; 85025; 86141; 87088

== ENCOUNTER → 2018-10-29 | Outpatient (CLI) | payer MEDICARE, MEDICAID ==
[~2018-10-29] MED LIST changes: +AMPI500C9 PO; +FLUC100T PO; +NITR100C PO; +NYST15CR TP
[2018-10-29 07:47] LABS: BILIRUBIN,URINE NEGATIVE (NEGATIVE); CLARITY,URINE SLIGHTLY CLOUDY; COLOR,URINE YELLOW; GLUCOSE, URINE (UA) NEGATIVE (NEGATIVE); KETONES,URINE NEGATIVE (NEGATIVE); LEUKOCYTE ESTERASE ,URINE 3+ (NEGATIVE); NITRITE,URINE NEGATIVE (NEGATIVE); PH,URINE 7 (5-9); PROTEIN,URINE NEGATIVE (NEGATIVE); UROBILINOGEN,URINE NORMAL (NORMAL)
[2018-10-29 07:56] LABS: BACTERIA,URINE NEGATIVE /HPF; RBC,URINE 0-2 /HPF; YEAST,URINE LARGE /HPF
== END ==
LOC: LAB 07:33
PROVIDERS: ATTEND Family Medicine
DX: Z87.440 Personal history of urinary (tract) infections (principal)
CPT/HCPCS: 81000; 87088

== ENCOUNTER 2018-11-10 08:00 | Outpatient (RCR) | payer MEDICARE, MEDICAID ==
[2018-08-25 08:55] VITALS: BP 130/60
[2018-08-25 09:35] VITALS: BP 118/62
[2018-09-03 08:00] VITALS: BP 130/60
[2018-09-08 08:10] VITALS: BP 112/62
[2018-09-15 08:00] VITALS: BP 120/60
[2018-09-15 09:07] VITALS: BP 102/62
[2018-09-22 08:00] VITALS: BP 100/60
[2018-09-22 10:11] VITALS: BP 102/60
[2018-09-29 08:00] VITALS: BP 100/45
[2018-09-29 08:52] VITALS: BP 102/60
[2018-10-01 08:30] VITALS: BP 90/62
[2018-10-01 09:10] VITALS: BP 93/60
[2018-10-13 08:05] VITALS: BP 102/60
[2018-10-13 08:40] VITALS: BP 98/58
[2018-10-27 08:00] VITALS: BP 116/60
[2018-10-27 09:30] VITALS: BP 100/70
[2018-10-29 08:00] VITALS: BP 90/60
[2018-10-29 08:23] VITALS: BP 90/60
[2018-11-03 08:10] VITALS: BP 118/60
[2018-11-10 08:00] VITALS: BP 118/60
[~2018-11-10 08:00] MED LIST changes: +NITR100C PO; -TIZA2TAB3 PO; +TIZA2TAB4 PO
[2018-11-10 09:08] VITALS: BP 120/60
[2018-11-12 08:05] VITALS: BP 160/60
[2018-11-12 09:00] VITALS: BP 92/60
[2018-11-17 08:00] VITALS: BP 102/70
[2018-11-17 08:48] VITALS: BP 115/60
== END 2018-11-15 | disposition home or self-care (01) ==
LOC: PULM 08:00
PROVIDERS: ATTEND Internal Medicine Critical Care Medicine
DX: J43.8 Other emphysema (principal); J45.909 Unspecified asthma, uncomplicated; Z72.0 Tobacco use
CPT/HCPCS: 99211

== ENCOUNTER 2018-12-15 08:00 | Outpatient (RCR) | payer MEDICAID ==
[2018-11-19 08:00] VITALS: BP 115/60
[2018-11-19 09:10] VITALS: BP 100/60
[2018-11-24 08:00] VITALS: BP 102/80
[2018-11-24 09:00] VITALS: BP 108/64
[2018-11-26 08:00] VITALS: BP 110/80
[2018-12-01 08:58] VITALS: BP 100/63
[2018-12-10 08:00] VITALS: BP 120/60
[2018-12-10 08:37] VITALS: BP 100/84
[2018-12-15 08:00] VITALS: BP 80/60
[2018-12-15 09:16] VITALS: BP 150/60
== END 2019-02-17 | disposition home or self-care (01) ==
LOC: PULM 08:00
PROVIDERS: ATTEND Internal Medicine Critical Care Medicine
DX: J43.9 Emphysema, unspecified (principal)

== ENCOUNTER → 2018-12-15 | Outpatient (CLI) | payer MEDICARE, MEDICAID ==
[2018-12-15 07:36] LABS: ALANINE AMINOTRANSFERASE 18 U/L (0-55); ALKALINE PHOSPHATASE 103 U/L (40-136); BILIRUBIN,TOTAL 0.3 MG/DL (0.1-1.0); BUN/CREATININE RATIO 10; CALCIUM 9.6 MG/DL (8.5-10.1); CARBON DIOXIDE 26 MMOL/L (21-32); CHLORIDE 104 MMOL/L (98-107); CHOLESTEROL 192 MG/DL (< 200); GFR ESTIMATED > 60; GLUCOSE 107 MG/DL (70-105); HDL CHOLESTEROL 64 MG/DL (40-60); SODIUM 141 MMOL/L (135-145); TOTAL PROTEIN 6.8 GM/DL (6.4-8.2); TRIGLYCERIDES 213 MG/DL (<150); VLDL CHOLESTEROL 43 MG/DL (5-40)
== END ==
LOC: LAB 07:05
PROVIDERS: ATTEND Nurse Practitioner Family
DX: E78.5 Hyperlipidemia, unspecified (principal); I10 Essential (primary) hypertension
CPT/HCPCS: 36415; 80053; 80061

== ENCOUNTER 2018-12-22 09:03 | Outpatient (RCR) | payer MEDICARE, MEDICAID | END 2018-12-22 09:37 | disposition home or self-care (01) | PROVIDERS: ATTEND Nurse Practitioner | DX: R15.9 Full incontinence of feces (principal) ==

== ENCOUNTER → 2018-12-28 | Outpatient (CLI) | payer MEDICARE, MEDICAID ==
--- NOTE | 2018-12-28 09:47 | Diagnostic Imaging Report ---
Indication: Routine screening. Comparison is made with prior mammogram from 12/26/2017 and 01/01/2017. 2-D and 3-D bilateral screening mammography was performed with CAD. Scattered fibroglandular densities are identified bilaterally. The parenchymal pattern is stable. There are benign parenchymal and vascular consultations bilaterally. No mass or malignant-appearing microcalcifications are seen. The axillae are unremarkable. Impression: BI-RADS category 2 No mammographic features suspicious for malignancy are identified. ACR BI-RADS Category 2: Benign findings. Result letter will be mailed to the patient. Note: At least 10% of breast cancer is not imaged by mammography. Dictated by: Dictated on workstation # [id number]
== END ==
LOC: RAD 07:20
PROVIDERS: ATTEND Family Medicine
DX: Z12.31 Encounter for screening mammogram for malignant neoplasm of breast (principal)
CPT/HCPCS: 77067

== ENCOUNTER → 2019-01-08 | Outpatient (CLI) | payer MEDICARE, MEDICAID ==
[~2019-01-08] MED LIST changes: +RT-ALBUTEROL SULF 2.5 MG/3 ML PRE-MIX VIAL INH ONE
== END ==
LOC: RT 12:53
PROVIDERS: ATTEND Nurse Practitioner Family
DX: J44.9 Chronic obstructive pulmonary disease, unspecified (principal); J40 Bronchitis, not specified as acute or chronic; Z72.0 Tobacco use
CPT/HCPCS: 94060; 94726; 94729

== ENCOUNTER → 2019-01-19 | Outpatient (CLI) | payer MEDICARE, MEDICAID ==
[~2019-01-19] MED LIST changes: -RT-ALBUTEROL SULF 2.5 MG/3 ML PRE-MIX VIAL INH ONE; +VASOPRESSIN INJECTION 20 UNIT/ML VIAL ONE
--- NOTE | 2019-01-19 10:38 | Diagnostic Imaging Report ---
EXAMINATION: Magnetic resonance imaging of the pelvis and left hip without contrast DATE: January 19, 2019. COMPARISON: None. INDICATION: 63-year-old female, left hip pain. Concern for potential fracture. TECHNIQUE: Magnetic Resonance Imaging sequences were performed of the pelvis and left hip without contrast. FINDINGS: TENDONS AND MUSCLES: The gluteus hesham muscles and their origins and insertions are intact bilaterally. The tendons and muscles of the greater trochanter (gluteus minimus, piriformis, and gluteus medius) are intact bilaterally. Both common hamstring attachments on the ischial tuberosities are intact and the extensor muscles of the thigh are intact. The visualized portions of the flexors and adductor muscles of the thigh and their attachments on the pelvis and hips are intact. Both iliopsoas and iliacus muscles are intact. The bilateral iliopsoas tendons are intact. HIPS AND SACROILIAC JOINTS: There is a moderate to large left hip joint effusion. There is no identified fluid-filled labral tear or paralabral cyst on non-arthrogram evaluation. There is extensive marrow edema in the left femoral head and neck extending to the level of the intertrochanteric femur. There is a nondisplaced subchondral fracture involving the left femoral head, best illustrated on sagittal PD fat saturation sequence image 15. The extensive adjacent marrow edema may relate to the above-mentioned fracture and would be consistent with a nondisplaced subchondral fracture. There is also edema in the adjacent left acetabulum without clearly identified acetabular fracture. There is no right hip joint effusion. LUMBAR SPINE: There is transitional lumbosacral anatomy. If spinal intervention is to be performed in the future, recommend careful correlation with levels. BONE: There is a pathognomonic double line sign of osteonecrosis in the right femoral head. There is no extensive adjacent marrow edema involving the right femoral head or neck or noted in the acetabulum. Avascular necrosis involving the left femoral head is difficult to completely exclude although no pathognomonic signal changes of osteonecrosis are present in the left femoral head. There is the nondisplaced subchondral fracture of the left femoral head with adjacent marrow edema as mentioned above as well as prominent marrow edema in the left acetabulum. BURSAE AND SOFT TISSUES: The bursae and soft tissues surrounding the pelvis and hips are within normal limits. IMPRESSION: 1. Nondisplaced subchondral fracture of the left femoral head with extensive adjacent marrow edema involving the femoral head and femoral neck extending to the level of the intertrochanteric femur. 2. Moderate to large left hip joint effusion. 3. Prominent marrow edema in the left acetabulum without clearly identified acetabular fracture. 4. Avascular necrosis of the right femoral head without findings to specifically suggest subchondral collapse on the right. A component of avascular necrosis of the left femoral head would be difficult to completely exclude although no pathognomonic signal changes of osteonecrosis are present in the left femoral head. 5. Intact muscles and tendons. Called and faxed to [facility] at 10:37 a.m. by denita. Dictated by: Dictated on workstation # [id number]
== END ==
LOC: RAD 09:05
PROVIDERS: ATTEND Nurse Practitioner
DX: S72.092A Other fracture of head and neck of left femur, initial encounter for closed fracture (principal); M87.9 Osteonecrosis, unspecified
CPT/HCPCS: 73721

== ENCOUNTER 2019-02-20 11:17 | Emergency (ER) | payer MEDICARE, MEDICAID ==
[~2019-02-20] VITALS: Ht 160 cm; Wt 71.7 kg
[~2019-02-20 11:17] MED LIST changes: -VASOPRESSIN INJECTION 20 UNIT/ML VIAL ONE
--- NOTE | 2019-02-20 12:36 | ED GU-Female ---
General Chief Complaint: - Urinary Stated Complaint: REPLACEMENT FOR DRAINAGE TUBE CATHETER Nursing Triage Note: PT AMBULATE TO TRIAGE WITH C/O NEEDING DRAINAGE TUBE REPLACED ON SUPRAPUBIC CATH. PT STATES THE TUBING COLLAPSED LAST NIGHT. Nursing Sepsis Screen: No Definite Risk Source: patient Exam Limitations: no limitations History of Present Illness Date Seen by Provider: Feb 20, 2019 Time Seen by Provider: 12:05 Initial Comments Here with report of catheter tube that is between the suprapubic catheter and the Crain collection bag is kinking and not allowing for flow. She states that the tubing will collapse and then she has to have it replaced. She is here to see if she can get it fixed or replaced. The system is currently changed on Friday02/22/19. Denies other problems or concerns. Timing/Duration: yesterday Severity/Quality: mild Location: suprapubic Radiation: none Activities at Onset: rest Associated Symptoms: No abdominal pain, No dysuria, No fever/chills Allergies and Home Medications Allergies Coded Allergies: bacitracin (Verified Allergy, Intermediate, "I BREAK OUT IN A RASH ALL OVER.", 02/09/18) neomycin (Verified Allergy, Intermediate, "I BREAK OUT IN A RASH ALL OVER.", 02/09/18) polymyxin B (Verified Allergy, Intermediate, "I BREAK OUT IN A RASH ALL OVER.", 02/09/18) ibuprofen (Verified Allergy, Mild, RASH, 02/09/18) naproxen (Verified Allergy, Mild, RASH, 02/09/18) Home Medications Albuterol Sulfate 2.5 Mg/3 Ml Vial.neb, 2.5 MG NEB Q6H PRN for SHORTNESS OF BREATH, (Reported) Albuterol Sulfate 18 Gm Hfa.aer.ad, 2 PUFF INH QID PRN for SHORTNESS OF BREATH, (Reported) Alendronate Sodium 70 Mg Tablet, 70 MG PO Sa, (Reported) Ampicillin Trihydrate 500 Mg Capsule, 500 MG PO Q6H, (Reported) Apixaban 5 Mg Tablet, 5 MG PO BID, (Reported) Aripiprazole 10 Mg Tablet, 10 MG PO DAILY, (Reported) Budesonide/Formoterol Fumarate 10.2 Gm Hfa.aer.ad, 2 PUFF IH BID, (Reported) Calcium Carbonate 500 Mg Tablet, 500 MG PO DAILY, (Reported) Cefdinir 300 Mg Capsule, 300 MG PO BID, (Reported) Clonazepam 1 Mg Tablet, 1 MG PO BID, (Reported) Colesevelam HCl 625 Mg Tablet, 1,250 MG PO BID, (Reported) TAKES 2 (625MG) TABLETS Dapagliflozin Propanediol 5 Mg Tablet, 5 MG PO DAILY, (Reported) Diltiazem HCl 240 Mg Cap.er.24h, 240 MG PO DAILY, (Reported) Donepezil HCl 10 Mg Tablet, 10 MG PO HS, (Reported) Erenumab-Aooe 70 Mg/1 Ml Auto.injct, 70 MG INJ MONTHLY, (Reported) Ergocalciferol (Vitamin D2) 50,000 Unit Capsule, 50,000 UNIT PO [place]alera, (Reported) Fluconazole 100 Mg Tablet, 100 MG PO DAILY, (Reported) Fluticasone Propionate 16 Gm [place].susp, 2 SPRAYS NS BID PRN for ALLERGIES, (Reported) Furosemide 20 Mg Tablet, 20 MG PO DAILY, (Reported) Gabapentin 400 Mg Capsule, 400 MG PO QID, (Reported) Lamotrigine 25 Mg Tablet, 25 MG PO TID, (Reported) Levocetirizine Dihydrochloride 5 Mg Tablet, 5 MG PO DAILY, (Reported) Levofloxacin 500 Mg Tablet, 500 MG PO DAILY Prescribed by: SRAVAN BRUCE on 10/13/18 140 Memantine HCl 10 Mg Tablet, 10 MG PO HS, (Reported) Mirtazapine 45 Mg Tablet, 45 MG PO HS, (Reported) Montelukast Sodium 10 Mg Tablet, 10 MG PO HS, (Reported) Nitrofurantoin Macrocrystal 100 Mg Capsule, 100 MG PO BID Prescribed by: CRISTIANE MCWILLIAMS on 10/29/18 1001 Nystatin 15 Gm Cream..g., 15 GM TP TID Prescribed by: SRAVAN BRUCE on 10/13/18 1402 Omeprazole 40 Mg Capsule.dr, 40 MG PO DAILY, (Reported) Oxybutynin Chloride 5 Mg Tablet, 5 MG PO BID, (Reported) Oxycodone HCl/Acetaminophen 1 Each Tablet, 1 TAB PO Q4H Prescribed by: EIRC BROOKE on 05/27/18 07 Pantoprazole Sodium 40 Mg Tablet.dr, 40 MG PO BID, (Reported) Prednisone 10 Mg Tab, 10 MG PO DAILY, (Reported) Primidone 250 Mg Tablet, 250 MG PO BID, (Reported) Ranitidine HCl 300 Mg Tablet, 300 MG PO BID, (Reported) Rifaximin 550 Mg Tablet, 550 MG PO TID, (Reported) Ropinirole HCl 2 Mg Tablet, 2 MG PO HS, (Reported) Sertraline HCl 100 Mg Tablet, 100 MG PO DAILY, (Reported) Simvastatin 20 Mg Tablet, 20 MG PO HS, (Reported) Sucralfate 1 Gm Tablet, 1 GM PO ACHS, (Reported) Sulfamethoxazole/Trimethoprim 1 Each Tablet, 1 EACH PO BID PRN, (Reported) Sumatriptan Succinate 100 Mg Tablet, 100 MG PO UD PRN for MIGRAINE, (Reported) PER MANUF INSTRUCTIONS Tiotropium [place] 1 Inh Aerp, 1 CAP IH HS, (Reported) Tizanidine HCl 2 Mg Tablet, 2 MG PO HS, (Reported) Trazodone HCl 100 Mg Tablet, 200 MG PO HS, (Reported) TAKES 2 (100MG) TABLETS Venlafaxine HCl 75 Mg Cap.er.24h, 75 MG PO DAILY, (Reported) Patient Home Medication List Home Medication List Reviewed: Yes Review of Systems Review of Systems Constitutional: no symptoms reported Gastrointestinal: no symptoms reported Genitourinary: see HPI; denies dysuria, denies pain Past Jchdqyv-Mspeyn-Rnieeh Hx Past Med/Social Hx: Reviewed Nursing Past Med/Soc Hx Patient Social History Alcohol Use: Denies Use Recreational Drug Use: No Smoking Status: Current Everyday Smoker Type Used: Cigarettes 2nd Hand Smoke Exposure: Yes Recent Foreign Travel: No Contact w/Someone Who Travel: No Recent Infectious Disease Expo: No Recent Hopitalizations: Yes (bladder surg September 2018) Physical Abuse: No Sexual Abuse: No Mistreated: No Fear: No Immunizations Up To Date Tetanus Booster (TDap): Unknown PED Vaccines UTD: No Date of Pneumonia Vaccine: Nov 11, 2016 Date of Influenza Vaccine: Dec 20, 2017 Seasonal Allergies Seasonal Allergies: No Past Medical History Surgeries: Yes (4 neck surgeries, thumb surgery both hands, bilat carple tunnel) Abdominal, Appendectomy, Bladder Surgery, Cardiac, Gallbladder, Joint Replacement, Orthopedic, Pancreatic, Tubal Ligation Respiratory: Yes Asthma, COPD Currently Using CPAP: No Currently Using BIPAP: No Cardiac: Yes Atrial Fibrillation, Coronary Artery Disease, High Cholesterol, Hypertension, Irregular Heartbeat, Palpitations, Peripheral Vascular Neurological: No Dementia, Headaches /Migraines, Neuropathy 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 Disorders: No 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 Disorders: Denies 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 Sexually Transmitted Disease: No HIV/AIDS: No Genitourinary: Yes (SUPRAPUBIC CATH STARTED LAST MONTH) UTI-Chronic Gastrointestinal: Yes Gastroesophageal Reflux, Polyps, Hiatal Hernia, Gall Bladder Disease Musculoskeletal: Yes (CBP chronic knee pain, HIP REPLACEMENT 02/08/19) Arthritis Endocrine: Yes Hypothyroidsim, Diabetes, Non-Insulin dep HEENT: Yes (cataracts removed) Cataract Loss of Vision: Denies Hearing Impairment: Denies Cancer: No Psychosocial: Yes Anxiety, Depression Integumentary: No Psoriasis Blood Disorders: No Adverse Reaction/Blood Tranf: No Family Medical History Reviewed Nursing Family Hx Cardiovascular disease G8 BROTHER (TRIPLE BYPASS) Diabetes mellitus 19 MOTHER FH: COPD (chronic obstructive pulmonary disease) 19 MOTHER FH: breast cancer 19 MOTHER FHx: brain cancer 19 FATHER No Pertinent Family Hx Physical Exam Vital Signs Vital Signs - First Documented 02/20/19 11:56 Temp 36.9 Pulse 100 Resp 18 B/P (MAP) 122/77 (92) O2 Delivery Room Air Capillary Refill : Less Than 3 Seconds Height, Weight, BMI Height: 5'4.00" Weight: 165lbs. 0.0oz. [id number]; 28.00 BMI Method:Stated General Appearance: WD/WN, no apparent distress Cardiovascular: regular rate, rhythm, no murmur Respiratory: lungs clear, normal breath sounds Gastrointestinal: other (suprapubic Catheter to bag drainage system. Transition tubing between catheter and collection system has collapsed at its proximal connection and is weak at the distal connection.) Neurologic/Psychiatric: alert, oriented x 3 Progress/Results/Core Measures Suspected Sepsis Recent Fever Within 48 Hours: No Infection Criteria Present: None New/Unexplained Altered Menta: No Sepsis Screen: No Definite Risk SIRS Temperature: Pulse: 100 Respiratory Rate: 18 Blood Pressure 122 /77 Mean: 92 Results/Orders Vital Signs/I&O 02/20/19 11:56 Temp 36.9 Pulse 100 Resp 18 B/P (MAP) 122/77 (92) O2 Delivery Room Air Capillary Refill : Less Than 3 Seconds Blood Pressure Mean: 92 POS Progress Note : Progress Note Seen and evaluated. Evaluated tube collection system. There is transition tubing between the suprapubic catheter and stopcock and bag collection system. This tubing appears to have collapsed and is weak walled at the proximal site as well as to a lesser extent at the distal connection site. Stopcock was closed in tubing was disconnected. Tubing exterior surface was cleaned and the week section was cut out. Tubing was reconnected to stopcock and after. Tape was used to provided supporting structure both on the proximal and distal ends. Excellent urine flow noted when reattached and tube was secured with tape minimizing extreme bends and flow continued. Patient overall very happy with outcome. She will get the entire system change on Friday. Discharged home with return precautions. Patient verbalize understanding instructions and agreement with plan. Departure Impression Primary Impression: Complication, blocked suprapubic catheter Qualified Codes: T83.090A - Other mechanical complication of cystostomy catheter, initial encounter Disposition: HOME, SELF-CARE Condition: Improved Departure-Patient Inst. Decision time for Depature: 12:36 Referrals: VIPIN GOODMAN DO (PCP/Family) Primary Care Physician Patient Instructions: How to Care for Your Crain Catheter, Female Add. Discharge Instructions: All discharge instructions reviewed with patient and/or family. Voiced understanding. Watch for instructions from kinked tubing. Follow-up with your doctor on Friday as scheduled for catheter replacement. Return for obstruction, fever, chills, weakness or other concerns as needed. CRISTIANE MCWILLIAMS MD Feb 20, 2019 12:36 POS
[2019-02-20 12:44] VITALS: BP 122/77
== END 2019-02-20 12:44 | disposition home or self-care (01) ==
LOC: EDUNIT# 11:17 → ER 11:19
DX: T83.018A Breakdown (mechanical) of other urinary catheter, initial encounter (principal); J44.9 Chronic obstructive pulmonary disease, unspecified; I48.91 Unspecified atrial fibrillation; I25.10 Atherosclerotic heart disease of native coronary artery without angina pectoris; E78.00 Pure hypercholesterolemia, unspecified; I10 Essential (primary) hypertension; E11.51 Type 2 diabetes mellitus with diabetic peripheral angiopathy without gangrene; F03.90 Unspecified dementia, unspecified severity, without behavioral disturbance, psychotic disturbance, mood disturbance, and anxiety; E11.40 Type 2 diabetes mellitus with diabetic neuropathy, unspecified; K21.9 Gastro-esophageal reflux disease without esophagitis; E03.9 Hypothyroidism, unspecified; F41.9 Anxiety disorder, unspecified; F32.9 Major depressive disorder, single episode, unspecified; F17.210 Nicotine dependence, cigarettes, uncomplicated; G43.909 Migraine, unspecified, not intractable, without status migrainosus; Z88.1 Allergy status to other antibiotic agents; Z88.6 Allergy status to analgesic agent; Z79.51 Long term (current) use of inhaled steroids; Z90.49 Acquired absence of other specified parts of digestive tract; Z98.51 Tubal ligation status; Z82.49 Family history of ischemic heart disease and other diseases of the circulatory system; Z80.3 Family history of malignant neoplasm of breast; Z80.8 Family history of malignant neoplasm of other organs or systems; Z86.010 Personal history of colon polyps
CPT/HCPCS: 99282

== ENCOUNTER 2019-03-16 19:25 | Outpatient (CLI) | payer MEDICARE, MEDICAID | END 2019-03-17 07:01 | disposition home or self-care (01) | LOC: SLEEP 19:25 | PROVIDERS: ATTEND Nurse Practitioner Family | DX: G47.50 Parasomnia, unspecified (principal); G47.36 Sleep related hypoventilation in conditions classified elsewhere; J44.9 Chronic obstructive pulmonary disease, unspecified; Z72.0 Tobacco use | CPT/HCPCS: 95810 ==

== ENCOUNTER 2019-04-06 09:02 | Outpatient (RCR) | payer MEDICARE, MEDICAID ==
[~2019-04-06 09:02] MED LIST changes: -DILT240C PO; +DILT240C35 PO; -DILT240C9 PO; +DILT240C91 PO; +MAGN400T8 PO; -MEMA10TA22 PO; +MEMA10TA57 PO; -METO-387 PO; +MTP25TSR PO; +OMEP40CA27 PO; -OMEP40CA36 PO; -OXYB10TA PO; +OXYB10TA2 PO; +OXYB5TAB13 PO; -OXYB5TAB9 PO; +SIMV20TA26 PO; -TRAZ-222 PO; +TRM50T PO; +TRZ50T PO
[2019-04-20] MEDS ORDERED: CETI10TA17 PO (10:24)
[2019-04-20] MEDS ORDERED: ZINC30CA PO (10:24)
[2019-04-20] MEDS ORDERED: FOLI1TAB24 PO (10:24)
[2019-04-20] MEDS ORDERED: AMIT25TA9 PO (10:24)
[2019-04-20] MEDS ORDERED: PRIM250T33 PO (10:24)
[2019-04-20] MEDS ORDERED: MAGN250T13 PO (10:24)
[2019-04-20] MEDS ORDERED: CLON1TAB13 PO (10:24)
[2019-04-20] MEDS ORDERED: COLE625T9 PO (10:24)
[2019-04-20] MEDS ORDERED: FLUT1BLS3 IH (10:24)
[2019-04-20] MEDS ORDERED: CYAN250010 PO (10:24)
[2019-04-20] MEDS ORDERED: BACL20TA PO (10:24)
== END 2019-04-30 09:00 | disposition home or self-care (01) ==
PROVIDERS: ATTEND Orthopaedic Surgery
DX: M19.91 Primary osteoarthritis, unspecified site (principal); M25.552 Pain in left hip; J45.909 Unspecified asthma, uncomplicated; E11.9 Type 2 diabetes mellitus without complications; Z98.1 Arthrodesis status; Z96.642 Presence of left artificial hip joint; Z96.653 Presence of artificial knee joint, bilateral

== ENCOUNTER → 2019-04-13 | Outpatient (CLI) | payer MEDICARE, MEDICAID ==
[~2019-04-13] MED LIST changes: +DILT240C PO; -DILT240C35 PO; +DILT240C9 PO; -DILT240C91 PO; +HOLD METFORMIN - RECEIVED CONTRAST 20 ML VIAL IV SCH; +IOHEXOL 350 MG/ML 100 ML (OMNIPAQUE 350) VIAL IV ONE; -MAGN400T8 PO; +MEMA10TA22 PO; -MEMA10TA57 PO; +METO-387 PO; -MTP25TSR PO; +NS 100 ML (IVPB) BAG IV ONE; -OMEP40CA27 PO; +OMEP40CA36 PO; +OXYB10TA PO; -OXYB10TA2 PO; -OXYB5TAB13 PO; +OXYB5TAB9 PO; -SIMV20TA26 PO; +TRAZ-222 PO; -TRZ50T PO
[2019-04-13 09:07] LABS: BUN/CREATININE RATIO 20; CREATININE SERUM 0.69 MG/DL (0.60-1.30); GFR ESTIMATED > 60
--- NOTE | 2019-04-13 09:55 | Diagnostic Imaging Report ---
PROCEDURE: CT chest with contrast only. TECHNIQUE: Multiple contiguous axial images were obtained through the chest after administration of intravenous contrast. Auto Exposure Controls were utilized during the CT exam to meet ALARA standards for radiation dose reduction. DATE: April 13, 2019. COMPARISON: Chest radiographs August 11, 2018. INDICATION: 63-year-old female, shortness of breath. FINDINGS: There are upper lobe predominant findings of emphysema. There is very mild left lower lobe bronchiectasis. There is somewhat tree-in-bud nodularity in the left lower lobe and also in the inferior aspect of the left upper lobe posteriorly. This is new since the prior CT chest of May 08, 2018. There is a 3 mm calcified left lower lobe granuloma on axial image 77. There is no identified noncalcified pulmonary nodule. There is no lung mass. There is no additional focal airspace consolidation. There is no pneumothorax. There is no pleural effusion. The main pulmonary artery diameter measures 2.9 cm in diameter which is right at the upper limits of normal. There is no identified pulmonary embolus. There are atherosclerotic calcifications. The heart is not enlarged. There is no pericardial effusion. There is no identified abnormally enlarged mediastinal, hilar, or axillary lymph node which meets CT size criteria for adenopathy. There is mild intrahepatic bile duct dilation. The common bile duct measures 10 mm in diameter which is also abnormally dilated. The gallbladder appears absent. There is no identified CT apparent common bile duct stone or ampullary mass. The main pancreatic duct is mildly borderline prominent in diameter. There is no identified pancreatic lesion. The spleen is normal in size. The adrenal glands are unremarkable. There is fluid in the esophagus which may relate to slow transit of recently swallowed fluid material and/or gastroesophageal reflux. There is no CT apparent wall thickening of the esophagus. There is abnormal wall thickening of the mid stomach, best illustrated on axial image 124 and adjacent sequential images. There are multilevel degenerative changes of the spine. There is cervicothoracic spine hardware noted. There is no identified bone lesion to suggest bone metastasis. IMPRESSION: 1. New tree-in-bud nodularity in the left lower lobe and inferior aspect of the left upper lobe with mild left lower lobe bronchiectasis. This may relate to process spreading via endobronchial means which is most typically aspiration or infectious bronchiolitis. 2. Upper lobe predominant findings of emphysema. 3. Abnormal wall thickening of the mid stomach. Differential considerations would include malignancy and nonspecific gastritis. Further evaluation with upper endoscopy is recommended. Dictated by: Dictated on workstation # [id number]
== END ==
LOC: RAD 08:33
PROVIDERS: ATTEND Nurse Practitioner Family
DX: J43.9 Emphysema, unspecified (principal); J47.9 Bronchiectasis, uncomplicated; K31.9 Disease of stomach and duodenum, unspecified; G47.36 Sleep related hypoventilation in conditions classified elsewhere; J45.909 Unspecified asthma, uncomplicated; Z90.49 Acquired absence of other specified parts of digestive tract; Z96.9 Presence of functional implant, unspecified; Z72.0 Tobacco use
CPT/HCPCS: 36415; 71260; 82565; 84520

== ENCOUNTER 2019-04-20 10:15 | Outpatient (CLI) | payer MEDICARE, MEDICAID ==
[~2019-04-20] VITALS: Ht 160 cm; Wt 73.6 kg
[~2019-04-20 10:15] MED LIST changes: -DILT240C PO; +DILT240C35 PO; -DILT240C9 PO; +DILT240C91 PO; -HOLD METFORMIN - RECEIVED CONTRAST 20 ML VIAL IV SCH; -IOHEXOL 350 MG/ML 100 ML (OMNIPAQUE 350) VIAL IV ONE; +MAGN400T8 PO; -MEMA10TA22 PO; +MEMA10TA57 PO; -METO-387 PO; +MTP25TSR PO; -NS 100 ML (IVPB) BAG IV ONE; +OMEP40CA27 PO; -OMEP40CA36 PO; -OXYB10TA PO; +OXYB10TA2 PO; +OXYB5TAB13 PO; -OXYB5TAB9 PO; +SIMV20TA26 PO; -TRAZ-222 PO; +TRZ50T PO
[2019-04-20] MEDS ORDERED: FLUT1BLS3 IH (10:24)
[2019-04-20] MEDS ORDERED: CYAN250010 PO (10:24)
[2019-04-20] MEDS ORDERED: PRIM250T33 PO (10:24)
[2019-04-20] MEDS ORDERED: ZINC30CA PO (10:24)
[2019-04-20] MEDS ORDERED: AMIT25TA9 PO (10:24)
[2019-04-20] MEDS ORDERED: FOLI1TAB24 PO (10:24)
[2019-04-20] MEDS ORDERED: CLON1TAB13 PO (10:24)
[2019-04-20] MEDS ORDERED: MAGN250T13 PO (10:24)
[2019-04-20] MEDS ORDERED: COLE625T9 PO (10:24)
[2019-04-20] MEDS ORDERED: CETI10TA17 PO (10:24)
[2019-04-20] MEDS ORDERED: BACL20TA PO (10:24)
== END 2019-04-20 10:55 | disposition home or self-care (01) ==
LOC: PREOP 10:15
PROVIDERS: ATTEND Internal Medicine Critical Care Medicine
DX: Z01.818 Encounter for other preprocedural examination (principal)

== ENCOUNTER → 2019-04-23 | Outpatient (CLI) | payer MEDICARE, MEDICAID ==
[~2019-04-23] MED LIST changes: +AMIT25TA9 PO; +BARIUM for suspension 96% w/w (Vanilla Silq Medium Density) PO ONE; +BARIUM for suspension 98% w/w (Vanilla Silq High Density) PO ONE; +CYAN250010 PO; +FLUT1BLS3 IH; +FOLI1TAB24 PO; +PRIM250T33 PO; +ZINC30CA PO
--- NOTE | 2019-04-23 12:29 | Diagnostic Imaging Report ---
INDICATION: Dysphagia. FINDINGS: Patient ingested effervescent crystals as well as thin and thick barium and imaging of the esophagus was performed. A total of 1 minute and 4 seconds of fluoroscopic time was utilized. Esophagus is widely patent. No focal stricture or mass is identified. Barium passes freely into the stomach. There is an area within the midthoracic esophagus which is slightly of narrower caliber than the remainder of the esophagus distal to this point, however, no limitation to the passage of thin or thick barium is seen. There is no hiatal hernia or gastroesophageal reflux. IMPRESSION: There may be very minimal luminal narrowing of the midthoracic esophagus compared to the remainder of the esophagus, however, no high-grade stricture or mass is seen. There is no obstruction to the flow of liquid contrast. Dictated by: Dictated on workstation # [id number]
== END ==
LOC: RAD 10:50
PROVIDERS: ATTEND Surgery
DX: R13.10 Dysphagia, unspecified (principal)
CPT/HCPCS: 74220

== ENCOUNTER → 2019-07-07 | Outpatient (CLI) | payer MEDICARE, MEDICAID ==
[~2019-07-07] MED LIST changes: -BARIUM for suspension 96% w/w (Vanilla Silq Medium Density) PO ONE; -BARIUM for suspension 98% w/w (Vanilla Silq High Density) PO ONE; -CETI10TA20 PO; +CETI10TA21 PO; +MERO1VIA23 IV; -MERO1VIA3 IV; -MONT10TA24 PO; +MONT10TA26 PO; -OXYB10TA2 PO; +OXYB10TA29 PO; +ROPI2TAB6 PO; -TRAZ-190 PO; +TRAZ-227 PO
[2019-07-07 09:46] LABS: HEMOGLOBIN 12.3 G/DL (11.5-16.0); MEAN PLATELET VOLUME 9.9 FL (7.4-10.4); RED CELL DISTRIBUTION WIDTH 16.5 % (10.0-14.5); WHITE BLOOD COUNT 8.5 10^3/uL (4.3-11.0)
[2019-07-07 10:09] LABS: ALANINE AMINOTRANSFERASE 18 U/L (0-55); ALBUMIN 4.1 GM/DL (3.2-4.5); ALKALINE PHOSPHATASE 122 U/L (40-136); BILIRUBIN,TOTAL 0.2 MG/DL (0.1-1.0); BUN/CREATININE RATIO 13; CALCIUM 9.5 MG/DL (8.5-10.1); CARBON DIOXIDE 19 MMOL/L (21-32); CHLORIDE 104 MMOL/L (98-107); CREATININE SERUM 0.67 MG/DL (0.60-1.30); GFR ESTIMATED > 60; GLUCOSE 119 MG/DL (70-105); POTASSIUM 4.3 MMOL/L (3.6-5.0); SODIUM 137 MMOL/L (135-145); TOTAL PROTEIN 7.2 GM/DL (6.4-8.2)
== END ==
LOC: LAB 09:36
DX: N31.9 Neuromuscular dysfunction of bladder, unspecified (principal)
CPT/HCPCS: 36415; 80053; 85027

== ENCOUNTER → 2019-08-06 | Outpatient (CLI) | payer MEDICARE, MEDICAID ==
[~2019-08-06] VITALS: Ht 160 cm; Wt 73.0 kg
[~2019-08-06] MED LIST changes: +CATHETER FLUSH 10 ML SYR IV PRN; +REGADENOSON 0.4 MG/5 ML SYR (LEXISCAN) IV ONE
--- NOTE | 2019-08-06 11:53 | STRESS TEST ---
DATE OF SERVICE: 08/06/2019 RESTING AND POST REGADENOSON TECHNETIUM-99M TETROFOSMIN SPECT CT IMAGING ORDERING PHYSICIAN: Joleen Winn APRN PRIMARY PHYSICIAN: Dr. Lia Griffin. CLINICAL DIAGNOSES: Coronary artery disease. Baseline images were carried out after injection of 10.92 mCi of technetium-99m Tetrofosmin. This was followed by 0.4 mg regadenoson and 32.5 mCi of technetium-99m Tetrofosmin for stress imaging. The electrocardiogram showed sinus rhythm at baseline. It did not change significantly with regadenoson infusion. The patient did not report any significant symptoms. Review of images at rest and following stress does not indicate significant perfusion defects consistent with myocardial ischemia or infarction. Gated images show normal global left ventricular systolic function with normal regional wall motion. Left ventricular ejection fraction is calculated to be 64%. Left ventricular end diastolic volume is 58 mL. TID is absent (0.87). CONCLUSIONS: 1. No evidence of any significant myocardial ischemia or infarction on this study. 2. Normal regional wall motion. 3. Normal global left ventricular systolic function with a calculated ejection fraction of 64%. Job ID: [id number] DocumentID: [id number] Dictated Date: 08/06/2019 10:12:48 Director Of First Impressions Date: 08/06/2019 11:52:34 Dictated By: MARY MILLER MD, MA, FACP, FACC,
== END ==
LOC: CARD 07:22
PROVIDERS: ATTEND Nurse Practitioner Family
DX: I25.10 Atherosclerotic heart disease of native coronary artery without angina pectoris (principal); R07.9 Chest pain, unspecified
CPT/HCPCS: 78452; 93017

== ENCOUNTER → 2019-09-14 | Outpatient (CLI) | payer MEDICARE, MEDICAID ==
[~2019-09-14] MED LIST changes: -CATHETER FLUSH 10 ML SYR IV PRN; -REGADENOSON 0.4 MG/5 ML SYR (LEXISCAN) IV ONE; -TIZA2TAB4 PO; +TIZA2TAB7 PO
--- NOTE | 2019-09-14 10:23 | Diagnostic Imaging Report ---
INDICATION: Postmenopausal female. History of fractures as an adult. Chronic on glucocorticoids. COMPARISON: 03/19/2018 FINDINGS: AP Spine L2-L4: [BMD (g/cm2): 0.874] [T-Score: -2.7] [Z-Score: -1.2] [BMD Previous: 1.101] [BMD % Change: -20.6] LT Hip Neck: [BMD (g/cm2): NA] [T-Score: NA] [Z-Score: NA] LT Hip Total: [BMD (g/cm2):NA] [T-Score:NA] [Z-Score: NA] [BMD Previous: NA] [BMD % Change: NA] RT Hip Neck: [BMD (g/cm2):0.608] [T-Score:-3.1] [Z-Score:-1.7] RT Hip Total: [BMD (g/cm2):0.679] [T-score:-2.6] [Z-Score:-1.4] [BMD Previous:0.692] [BMD % Change:-1.9] *Indicates significant change from prior examination based on 95% confidence level. World Health Organization criteria for BMD interpretation classify patients as Normal (T-score at or above -1.0), Osteopenic (T-score between -1.0 and -2.5) or Osteoporotic (T-score at or below -2.5). LIMITATIONS AND MODIFICATION: Bone mineral density of the lumbar spine may be falsely elevated due to degenerative change. FRACTURE RISK (FRAX SCORE): Not applicable IMPRESSION: 1. Osteoporosis. 2. Bone mineral density has decreased, as detailed above. 3. See below National Osteoporosis Foundation guidelines on when to potentially initiate pharmacologic therapy. Based on the National Osteoporosis Foundation Guidelines, pharmacologic treatment should be initiated in any of the following, unless clinical conditions suggest otherwise: * Any patient with prior fragility fracture of the hip or vertebrae. A spine fracture indicates 5X risk for subsequent spine fracture and 2X risk for subsequent hip fracture. * Osteoporosis (T-score <-2.5). * Postmenopausal women and men age 50 and older with low bone mass/osteopenia (T-score between -1.0 and -2.5) by DXA and 10-year major osteoporotic fracture greater than 20% or a 10-year probability of hip fracture greater than 3%. These fracture risks are supplied above in the FRAX score, if applicable. * Clinician judgement and/or patient preferences may indicate treatment for people with 10-year fracture probabilities above or below these levels. Dictated by: Dictated on workstation # [id number]
== END ==
LOC: RAD 08:41
PROVIDERS: ATTEND Nurse Practitioner Family
DX: M81.0 Age-related osteoporosis without current pathological fracture (principal); Z78.0 Asymptomatic menopausal state
CPT/HCPCS: 77080

== ENCOUNTER → 2019-09-14 | Outpatient (CLI) | payer MEDICARE, MEDICAID ==
--- NOTE | 2019-09-14 10:42 | Diagnostic Imaging Report ---
INDICATION: COPD, hypoxia. COMPARISON: 04/22/2019. TECHNIQUE: Two radiographs of the chest are dated 09/14/2019. FINDINGS: The cardiac silhouette is within normal limits in size. No significant pulmonary vascular congestion. Post surgical changes are again noted within the cervicothoracic spine. Mild background emphysematous changes are suggested. The lungs are clear of focal pulmonary opacity. No pleural effusion. No pneumothorax. Scattered vascular calcifications. Scattered osseous degenerative changes without acute osseous abnormality. IMPRESSION: Mild background chronic obstructive pulmonary disease and post surgical changes as described above without superimposed acute cardiopulmonary abnormality. Dictated by: Dictated on workstation # [id number]
== END ==
LOC: RAD 08:45
PROVIDERS: ATTEND Nurse Practitioner Family
DX: J44.9 Chronic obstructive pulmonary disease, unspecified (principal); G47.34 Idiopathic sleep related nonobstructive alveolar hypoventilation; G47.36 Sleep related hypoventilation in conditions classified elsewhere; J45.909 Unspecified asthma, uncomplicated; Z72.0 Tobacco use; Z98.890 Other specified postprocedural states
CPT/HCPCS: 71046

== ENCOUNTER → 2019-09-29 | Outpatient (CLI) | payer MEDICARE, MEDICAID ==
--- NOTE | 2019-09-29 12:11 | Diagnostic Imaging Report ---
INDICATION: Productive cough and shortness of breath. TIME OF EXAM: 11:38 a.m. COMPARISON: Correlation is made with prior chest 09/14/2019. FINDINGS: Heart size is stable. Lungs are clear. Pulmonary vascularity is normal. No infiltrate, effusion or pneumothorax is detected. Postop changes in the lower cervical spine are noted. IMPRESSION: Stable chest. No acute cardiopulmonary process is detected. Dictated by: Dictated on workstation # [id number]
== END ==
LOC: RAD 11:18
PROVIDERS: ATTEND Nurse Practitioner Family
DX: J44.9 Chronic obstructive pulmonary disease, unspecified (principal); Z72.0 Tobacco use
CPT/HCPCS: 71046

== ENCOUNTER → 2019-10-18 | Outpatient (CLI) | payer MEDICARE, MEDICAID ==
[2019-10-18 07:43] LABS: BASOPHILS % (AUTO) 0 % (0-10); EOSINOPHILS # (AUTO) 0.3 10^3/uL (0.0-0.3); EOSINOPHILS % (AUTO) 3 % (0-10); HEMATOCRIT 40 % (35-52); HEMOGLOBIN 12.8 G/DL (11.5-16.0); LYMPHOCYTES # (AUTO) 1.9 X 10^3 (1.0-4.0); LYMPHOCYTES % (AUTO) 19 % (12-44); MEAN CORPUSCULAR HEMOGLOBIN 26 PG (25-34); MEAN CORPUSCULAR HGB CONC 32 G/DL (32-36); MEAN CORPUSCULAR VOLUME 82 FL (80-99); MEAN PLATELET VOLUME 9.8 FL (7.4-10.4); MONOCYTES # (AUTO) 0.7 X 10^3 (0.0-1.0); MONOCYTES % (AUTO) 7 % (0-12); NEUTROPHILS # (AUTO) 6.8 X 10^3 (1.8-7.8); NEUTROPHILS % (AUTO) 70 % (42-75); PLATELET COUNT 254 10^3/uL (130-400); RED CELL DISTRIBUTION WIDTH 19.1 % (10.0-14.5); WHITE BLOOD COUNT 9.6 10^3/uL (4.3-11.0)
[2019-10-18 08:13] LABS: ERYTHROCYTE SEDIMENTATION RATE 10 MM/HR (0-30)
[2019-10-18 08:15] LABS: ALBUMIN 3.9 GM/DL (3.2-4.5); CHLORIDE 111 MMOL/L (98-107); POTASSIUM 4.2 MMOL/L (3.6-5.0); SODIUM 144 MMOL/L (135-145)
[2019-10-18 08:16] LABS: CALCIUM 8.9 MG/DL (8.5-10.1)
[2019-10-18 08:17] LABS: TOTAL PROTEIN 6.7 GM/DL (6.4-8.2); TRIGLYCERIDES 198 MG/DL (<150); VLDL CHOLESTEROL 40 MG/DL (5-40)
[2019-10-18 08:18] LABS: GLUCOSE 143 MG/DL (70-105)
[2019-10-18 08:19] LABS: BILIRUBIN,TOTAL 0.2 MG/DL (0.1-1.0); CARBON DIOXIDE 22 MMOL/L (21-32)
[2019-10-18 08:21] LABS: ALKALINE PHOSPHATASE 131 U/L (40-136); CREATININE SERUM 0.65 MG/DL (0.60-1.30); GFR ESTIMATED > 60
[2019-10-18 08:22] LABS: CHOLESTEROL 182 MG/DL (< 200)
[2019-10-18 08:23] LABS: BUN/CREATININE RATIO 18; HDL CHOLESTEROL 65 MG/DL (40-60)
[2019-10-18 08:24] LABS: ALANINE AMINOTRANSFERASE 27 U/L (0-55)
== END ==
LOC: LAB 07:11
PROVIDERS: ATTEND Internal Medicine Cardiovascular Disease
DX: I25.10 Atherosclerotic heart disease of native coronary artery without angina pectoris (principal); I48.92 Unspecified atrial flutter; I65.29 Occlusion and stenosis of unspecified carotid artery; G89.4 Chronic pain syndrome; J44.9 Chronic obstructive pulmonary disease, unspecified; E78.5 Hyperlipidemia, unspecified; I95.9 Hypotension, unspecified; R53.83 Other fatigue; Z72.0 Tobacco use
CPT/HCPCS: 36415; 80053; 80061; 84443; 85025; 85652

== ENCOUNTER 2019-11-01 17:30 | Emergency (ER) | payer MEDICARE, MEDICAID ==
[~2019-11-01] VITALS: Ht 160 cm; Wt 68.5 kg
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
[2019-11-01 18:31] VITALS: BP 125/81
== END 2019-11-01 18:31 | disposition home or self-care (01) ==
LOC: EDUNIT# 17:30 → ER 17:31
DX: S16.1XXA Strain of muscle, fascia and tendon at neck level, initial encounter (principal); I10 Essential (primary) hypertension; E11.40 Type 2 diabetes mellitus with diabetic neuropathy, unspecified; J44.9 Chronic obstructive pulmonary disease, unspecified; I48.91 Unspecified atrial fibrillation; I25.10 Atherosclerotic heart disease of native coronary artery without angina pectoris; E78.00 Pure hypercholesterolemia, unspecified; K21.9 Gastro-esophageal reflux disease without esophagitis; F03.90 Unspecified dementia, unspecified severity, without behavioral disturbance, psychotic disturbance, mood disturbance, and anxiety; G43.909 Migraine, unspecified, not intractable, without status migrainosus; F41.9 Anxiety disorder, unspecified; F32.9 Major depressive disorder, single episode, unspecified; Z88.6 Allergy status to analgesic agent; Z88.1 Allergy status to other antibiotic agents; Z88.8 Allergy status to other drugs, medicaments and biological substances; Z79.01 Long term (current) use of anticoagulants; Z79.51 Long term (current) use of inhaled steroids; Z79.52 Long term (current) use of systemic steroids; Z77.22 Contact with and (suspected) exposure to environmental tobacco smoke (acute) (chronic); Z82.49 Family history of ischemic heart disease and other diseases of the circulatory system; Z80.3 Family history of malignant neoplasm of breast; Z80.8 Family history of malignant neoplasm of other organs or systems; V43.92XA Unspecified car occupant injured in collision with other type car in traffic accident, initial encounter
CPT/HCPCS: 70450; 71045; 72125

== ENCOUNTER → 2019-11-03 | Outpatient (CLI) | payer MEDICARE, MEDICAID ==
[~2019-11-03] MED LIST changes: +CATHETER FLUSH 10 ML SYR IV PRN; +HOLD METFORMIN - RECEIVED CONTRAST 20 ML VIAL IV SCH; +IOHEXOL 350 MG/ML 100 ML (OMNIPAQUE 350) VIAL IV ONE; +NS 100 ML (IVPB) BAG IV ONE
[2019-11-03 08:33] LABS: BASOPHILS % (AUTO) 1 % (0-10); EOSINOPHILS # (AUTO) 0.1 10^3/uL (0.0-0.3); EOSINOPHILS % (AUTO) 2 % (0-10); HEMATOCRIT 41 % (35-52); HEMOGLOBIN 13.3 G/DL (11.5-16.0); LYMPHOCYTES # (AUTO) 1.8 X 10^3 (1.0-4.0); LYMPHOCYTES % (AUTO) 27 % (12-44); MEAN CORPUSCULAR HEMOGLOBIN 27 PG (25-34); MEAN CORPUSCULAR HGB CONC 33 G/DL (32-36); MEAN CORPUSCULAR VOLUME 83 FL (80-99); MEAN PLATELET VOLUME 10.1 FL (7.4-10.4); MONOCYTES # (AUTO) 0.6 X 10^3 (0.0-1.0); MONOCYTES % (AUTO) 10 % (0-12); NEUTROPHILS # (AUTO) 4.1 X 10^3 (1.8-7.8); NEUTROPHILS % (AUTO) 61 % (42-75); PLATELET COUNT 294 10^3/uL (130-400); RED CELL DISTRIBUTION WIDTH 19.7 % (10.0-14.5); WHITE BLOOD COUNT 6.6 10^3/uL (4.3-11.0)
[2019-11-03 08:54] LABS: BUN/CREATININE RATIO 14; CALCIUM 9.2 MG/DL (8.5-10.1); CARBON DIOXIDE 21 MMOL/L (21-32); CHLORIDE 111 MMOL/L (98-107); CREATININE SERUM 0.66 MG/DL (0.60-1.30); GFR ESTIMATED > 60; GLUCOSE 107 MG/DL (70-105); POTASSIUM 3.9 MMOL/L (3.6-5.0); SODIUM 142 MMOL/L (135-145)
--- NOTE | 2019-11-03 10:01 | Diagnostic Imaging Report ---
EXAMINATION: CT Abdomen Pelvis with and without intravenous contrast. TECHNIQUE: Precontrast acquisitions were acquired through the abdomen and pelvis. Multiple contiguous axial images were obtained through the abdomen and pelvis after the administration of intravenous contrast. All CT scans use one or more of the following dose optimizing techniques: automated exposure control, MA and/or KvP adjustment based on a patient size and exam type, or iterative reconstruction. HISTORY: Bladder cancer. COMPARISON: 02/11/2017 FINDINGS: Limited views of the lower thorax show mild atelectasis at the left lung base. The liver is normal without focal lesion. There is no biliary ductal dilation. Gallbladder is not seen. Pancreas is normal. Spleen is normal. Adrenal glands are normal. The kidneys are normal. There is no hydronephrosis. There has been a bladder resection. There is an ileal conduit in the right lower quadrant. No evidence for local recurrence is seen. Visualized bowel is normal in caliber without obstruction or inflammation. No free fluid or air. No abdominal or pelvic lymphadenopathy. Aorta is normal in caliber without aneurysm. There are no suspicious osseus lesions. There is a left hip arthroplasty. IMPRESSION: 1. Bladder resection with ileal conduit but no hydronephrosis or evidence for local recurrence. Dictated by: Dictated on workstation # [id number]
== END ==
LOC: RAD 09:45
PROVIDERS: ATTEND Urology
DX: Z85.51 Personal history of malignant neoplasm of bladder (principal); Z90.6 Acquired absence of other parts of urinary tract
CPT/HCPCS: 74178; 80048

== ENCOUNTER → 2019-11-03 | Outpatient (CLI) | payer MEDICARE, MEDICAID ==
[~2019-11-03] MED LIST changes: -CATHETER FLUSH 10 ML SYR IV PRN; -HOLD METFORMIN - RECEIVED CONTRAST 20 ML VIAL IV SCH; -IOHEXOL 350 MG/ML 100 ML (OMNIPAQUE 350) VIAL IV ONE; -NS 100 ML (IVPB) BAG IV ONE
[2019-11-03 08:35] LABS: BASOPHILS % (AUTO) 1 % (0-10); EOSINOPHILS # (AUTO) 0.1 10^3/uL (0.0-0.3); EOSINOPHILS % (AUTO) 2 % (0-10); HEMATOCRIT 41 % (35-52); HEMOGLOBIN 13.3 G/DL (11.5-16.0); LYMPHOCYTES # (AUTO) 1.8 X 10^3 (1.0-4.0); LYMPHOCYTES % (AUTO) 27 % (12-44); MEAN CORPUSCULAR HEMOGLOBIN 27 PG (25-34); MEAN CORPUSCULAR HGB CONC 33 G/DL (32-36); MEAN CORPUSCULAR VOLUME 83 FL (80-99); MEAN PLATELET VOLUME 10.1 FL (7.4-10.4); MONOCYTES # (AUTO) 0.6 X 10^3 (0.0-1.0); MONOCYTES % (AUTO) 10 % (0-12); NEUTROPHILS # (AUTO) 4.1 X 10^3 (1.8-7.8); NEUTROPHILS % (AUTO) 61 % (42-75); PLATELET COUNT 294 10^3/uL (130-400); RED CELL DISTRIBUTION WIDTH 19.7 % (10.0-14.5); WHITE BLOOD COUNT 6.6 10^3/uL (4.3-11.0)
[2019-11-03 08:55] LABS: BUN/CREATININE RATIO 14; CARBON DIOXIDE 21 MMOL/L (21-32); CHLORIDE 111 MMOL/L (98-107); CREATININE SERUM 0.66 MG/DL (0.60-1.30); GFR ESTIMATED > 60; POTASSIUM 3.9 MMOL/L (3.6-5.0); SODIUM 142 MMOL/L (135-145)
[2019-11-03 08:56] LABS: CALCIUM 9.2 MG/DL (8.5-10.1); GLUCOSE 107 MG/DL (70-105)
[2019-11-03 09:11] LABS: ALANINE AMINOTRANSFERASE 18 U/L (0-55); ALBUMIN 4.2 GM/DL (3.2-4.5); ALKALINE PHOSPHATASE 150 U/L (40-136); BILIRUBIN,TOTAL 0.3 MG/DL (0.1-1.0); MAGNESIUM 2.2 MG/DL (1.6-2.4)
== END ==
LOC: LAB 08:09
PROVIDERS: ATTEND Internal Medicine Cardiovascular Disease
DX: R42 Dizziness and giddiness (principal); I95.9 Hypotension, unspecified; I73.9 Peripheral vascular disease, unspecified; R06.02 Shortness of breath; I48.92 Unspecified atrial flutter; I25.10 Atherosclerotic heart disease of native coronary artery without angina pectoris; I77.89 Other specified disorders of arteries and arterioles; Z72.0 Tobacco use
CPT/HCPCS: 36415; 80053; 83735; 84443; 85025

== ENCOUNTER → 2019-11-18 | Outpatient (CLI) | payer MEDICARE, MEDICAID ==
[2019-11-18 08:41] LABS: BUN/CREATININE RATIO 32; CALCIUM 8.8 MG/DL (8.5-10.1); CARBON DIOXIDE 17 MMOL/L (21-32); CHLORIDE 111 MMOL/L (98-107); CREATININE SERUM 0.65 MG/DL (0.60-1.30); GFR ESTIMATED > 60; GLUCOSE 134 MG/DL (70-105); MAGNESIUM 2.3 MG/DL (1.6-2.4); SODIUM 138 MMOL/L (135-145)
== END ==
LOC: LAB 08:02
PROVIDERS: ATTEND Nurse Practitioner Family
DX: I95.9 Hypotension, unspecified (principal)
CPT/HCPCS: 36415; 80048; 83735

== ENCOUNTER → 2019-12-14 | Outpatient (CLI) | payer MEDICARE, MEDICAID ==
--- NOTE | 2019-12-14 19:12 | Diagnostic Imaging Report ---
INDICATION: Routine screening. COMPARISON is made with prior mammograms from 12/28/2018 and 12/26/2017. 2-D and 3-D bilateral screening mammography was performed with CAD. Scattered fibroglandular densities are identified bilaterally. No mass or malignant-appearing microcalcifications are seen. There are benign calcifications present. Axillae are unremarkable. IMPRESSION: BI-RADS Category 2 No mammographic features suspicious for malignancy are identified. ACR BI-RADS Category 2: Benign findings. Result letter will be mailed to the patient. Note: At least 10% of breast cancer is not imaged by mammography. Dictated by: Dictated on workstation # [id number]
== END ==
LOC: RAD 10:15
PROVIDERS: ATTEND Family Medicine
DX: Z12.31 Encounter for screening mammogram for malignant neoplasm of breast (principal)
CPT/HCPCS: 77063; 77067

== ENCOUNTER → 2019-12-27 | Outpatient (CLI) | payer MEDICARE, MEDICAID ==
[~2019-12-27] MED LIST changes: +AMIT50TA3 PO; -CETI10TA21 PO; +CETI10TA49 PO; +DIGO250T3 PO; +EREN70AU; +NITR0.4T39 SL; -PANT40TA3 PO; +PANT40TA52 PO
[2019-12-27 08:17] LABS: BASOPHILS % (AUTO) 0 % (0-10); EOSINOPHILS # (AUTO) 0.2 10^3/uL (0.0-0.3); EOSINOPHILS % (AUTO) 3 % (0-10); HEMATOCRIT 44 % (35-52); HEMOGLOBIN 14.3 G/DL (11.5-16.0); LYMPHOCYTES # (AUTO) 2.1 X 10^3 (1.0-4.0); LYMPHOCYTES % (AUTO) 30 % (12-44); MEAN CORPUSCULAR HEMOGLOBIN 28 PG (25-34); MEAN CORPUSCULAR HGB CONC 33 G/DL (32-36); MEAN CORPUSCULAR VOLUME 86 FL (80-99); MEAN PLATELET VOLUME 9.8 FL (7.4-10.4); MONOCYTES # (AUTO) 0.7 X 10^3 (0.0-1.0); MONOCYTES % (AUTO) 10 % (0-12); NEUTROPHILS % (AUTO) 56 % (42-75); PLATELET COUNT 282 10^3/uL (130-400); WHITE BLOOD COUNT 7.1 10^3/uL (4.3-11.0)
[2019-12-27 08:39] LABS: BUN/CREATININE RATIO 14; CALCIUM 9.5 MG/DL (8.5-10.1); CARBON DIOXIDE 24 MMOL/L (21-32); CHLORIDE 104 MMOL/L (98-107); CREATININE SERUM 0.65 MG/DL (0.60-1.30); GFR ESTIMATED > 60; GLUCOSE 109 MG/DL (70-105); MAGNESIUM 2.1 MG/DL (1.6-2.4); POTASSIUM 4.3 MMOL/L (3.6-5.0); SODIUM 139 MMOL/L (135-145)
[2019-12-27 08:48] LABS: ERYTHROCYTE SEDIMENTATION RATE 17 MM/HR (0-30)
== END ==
LOC: LAB 08:03
PROVIDERS: ATTEND Internal Medicine Cardiovascular Disease
DX: I48.0 Paroxysmal atrial fibrillation (principal); I95.89 Other hypotension; R53.1 Weakness; Z72.0 Tobacco use
CPT/HCPCS: 36415; 80048; 80162; 83735; 84443; 85025; 85652

== ENCOUNTER 2019-12-30 11:47 | Inpatient (IN) | payer MEDICARE, MEDICAID ==
[~2019-12-30] VITALS: Ht 160 cm; Wt 68.8 kg
[~2019-12-30 11:47] MED LIST changes: -AMIT50TA3 PO; -DIGO250T3 PO; -EREN70AU; -NITR0.4T39 SL
[2019-12-30 12:13] LABS: BILIRUBIN,URINE NEGATIVE (NEGATIVE); CLARITY,URINE CLEAR; COLOR,URINE YELLOW; GLUCOSE, URINE (UA) NEGATIVE (NEGATIVE); KETONES,URINE NEGATIVE (NEGATIVE); LEUKOCYTE ESTERASE ,URINE 3+ (NEGATIVE); NITRITE,URINE POSITIVE (NEGATIVE); PH,URINE 7.5 (5-9); PROTEIN,URINE NEGATIVE (NEGATIVE)
[2019-12-30 12:13] LABS: BASOPHILS % (AUTO) 0 % (0-10); EOSINOPHILS # (AUTO) 0.1 10^3/uL (0.0-0.3); EOSINOPHILS % (AUTO) 1 % (0-10); HEMATOCRIT 43 % (35-52); HEMOGLOBIN 13.7 g/dL (11.5-16.0); LYMPHOCYTES # (AUTO) 2.2 10^3/uL (1.0-4.0); LYMPHOCYTES % (AUTO) 24 % (12-44); MEAN CORPUSCULAR HEMOGLOBIN 28 pg (25-34); MEAN CORPUSCULAR HGB CONC 32 g/dL (32-36); MEAN CORPUSCULAR VOLUME 88 fL (80-99); MEAN PLATELET VOLUME 10.2 fL (9.0-12.2); MONOCYTES # (AUTO) 0.8 10^3/uL (0.0-1.0); MONOCYTES % (AUTO) 9 % (0-12); NEUTROPHILS # (AUTO) 5.8 10^3/uL (1.8-7.8); NEUTROPHILS % (AUTO) 65 % (42-75); PLATELET COUNT 261 10^3/uL (130-400)
[2019-12-30 12:24] LABS: BACTERIA,URINE LARGE /HPF; SQUAMOUS EPITHELIAL CELL,UR 0-2 /HPF; WBC,URINE 50-100 /HPF
[2019-12-30 12:25] LABS: ALBUMIN 3.9 GM/DL (3.2-4.5); CHLORIDE 102 MMOL/L (98-107); POTASSIUM 3.6 MMOL/L (3.6-5.0); SODIUM 134 MMOL/L (135-145)
[2019-12-30 12:26] LABS: CALCIUM 8.2 MG/DL (8.5-10.1)
[2019-12-30 12:27] LABS: GLUCOSE 135 MG/DL (70-105); TOTAL PROTEIN 6.7 GM/DL (6.4-8.2)
[2019-12-30 12:28] LABS: CARBON DIOXIDE 19 MMOL/L (21-32)
[2019-12-30 12:29] LABS: BILIRUBIN,TOTAL 0.5 MG/DL (0.1-1.0)
[2019-12-30 12:30] LABS: ALKALINE PHOSPHATASE 130 U/L (40-136)
[2019-12-30] MEDS ORDERED: fentaNYL INJECTION 100 MCG/2 ML AMP IVP ONE (12:30)
[2019-12-30] MEDS ORDERED: ONDANSETRON 4 MG/2 ML (SDV) Z0FRAN IVP ONE (12:30)
[2019-12-30 12:31] LABS: CREATININE SERUM 0.62 MG/DL (0.60-1.30); GFR ESTIMATED > 60
[2019-12-30 12:32] LABS: BUN/CREATININE RATIO 16
[2019-12-30 12:34] LABS: ALANINE AMINOTRANSFERASE 48 U/L (0-55)
[2019-12-30] MEDS ORDERED: IOHEXOL 350 MG/ML 100 ML (OMNIPAQUE 350) VIAL IV ONE (12:45)
[2019-12-30] MEDS ORDERED: HOLD METFORMIN - RECEIVED CONTRAST 20 ML VIAL IV SCH (12:45)
[2019-12-30] MEDS ORDERED: CATHETER FLUSH 10 ML SYR IV PRN (12:45)
[2019-12-30] MEDS ORDERED: NS 100 ML (IVPB) BAG IV ONE (12:45)
--- NOTE | 2019-12-30 12:51 | ED Abdominal Pain ---
General Chief Complaint: Abdominal/GI Problems Stated Complaint: ABD PAIN Nursing Triage Note: ARRIVED VIA AMB TO ROOM 03. COMPLAINS OF CONSTIPATION X3 DAYS. STATES SHE TOOK A RX LAXITIVE YESTERDAY AND TODAY WITH LILTTLE RESULTS THIS AM. Sepsis Screen: No Definite Risk Source of Information: Patient, Old Records, Other (Outside clinic) Exam Limitations: No Limitations History of Present Illness Date Seen by Provider: Dec 30, 2019 Time Seen by Provider: 11:49 Initial Comments This 64-year-old woman presents to the emergency room with complaints of abdominal distention, upper abdominal pain, and nausea for the past 2-3 days. She has not been vomiting but states her hiatal hernia surgery prevents her from vomiting. She had one small bowel movement today but otherwise has not had any bowel movement in 2 days. She has history of multiple abdominal surgeries including urostomy after bladder resection for bladder cancer. She is afebrile and reports no respiratory symptoms at this time. She presented to the urgent care at her doctor's office in [place]. An x-ray performed there suggested small bowel obstruction. Allergies and Home Medications Allergies Coded Allergies: bacitracin (Verified Allergy, Intermediate, "I BREAK OUT IN A RASH ALL OVER.", 04/20/19) neomycin (Verified Allergy, Intermediate, "I BREAK OUT IN A RASH ALL OVER.", 04/20/19) polymyxin B (Verified Allergy, Intermediate, "I BREAK OUT IN A RASH ALL OVER.", 04/20/19) ibuprofen (Verified Allergy, Mild, RASH, 04/20/19) naproxen (Verified Allergy, Mild, RASH, 04/20/19) Home Medications Albuterol Sulfate 2.5 Mg/3 Ml Vial.neb, 2.5 MG NEB Q6H PRN for SHORTNESS OF BREATH, (Reported) Albuterol Sulfate 18 Gm Hfa.aer.ad, 2 PUFF INH QID PRN for SHORTNESS OF BREATH, (Reported) Amitriptyline HCl 50 Mg Tablet, 50 MG PO HS, (Reported) Apixaban 5 Mg Tablet, 5 MG PO BID, (Reported) LAST FILLED 07-28-2019 #180/90 DAY SUPPLY Aripiprazole 10 Mg Tablet, 15 MG PO DAILY, (Reported) TAKES 1 & OF A 10MG TAB Ascorbic Acid 500 Mg Capsule, 500 MG PO DAILY, (Reported) Baclofen 20 Mg Tablet, 20 MG PO TID, (Reported) LAST FILLED 06-01-2019 #270/90 DAY SUPPLY Cholecalciferol (Vitamin D3) 25 Mcg Tablet, 50 MCG PO DAILY, (Reported) Clonazepam 1 Mg Tablet, 1 MG PO BID, (Reported) Colesevelam HCl 625 Mg Tablet, 937.5 MG PO QID, (Reported) Cyanocobalamin (Vitamin B-12) 1,000 Mcg Tablet, 1,000 MCG PO DAILY, (Reported) Dapagliflozin Propanediol 5 Mg Tablet, 5 MG PO DAILY, (Reported) Digoxin 250 Mcg Tablet, 250 MCG PO DAILY, (Reported) Docusate Sodium 100 Mg Tablet, 100 MG PO DAILY, (Reported) Donepezil HCl 10 Mg Tablet, 10 MG PO HS, (Reported) LAST FILLED 07-16-2019 #90 Erenumab-Aooe 70 Mg/1 Ml Auto.injct, 70 MG MONTHLY, (Reported) Fludrocortisone Acetate 0.1 Mg Tab, 0.1 MG PO Q48H, (Reported) Fluticasone Propionate 16 Gm [place].susp, 2 SPRAYS NS BID PRN for ALLERGIES, (Reported) Fluticasone/Umeclidin/Vilanter 1 Each Blst.w.dev, 1 EACH IH DAILY, (Reported) LAST FILLED 08-05-2019 #3/90 DAY SUPPLY Furosemide 20 Mg Tablet, 20 MG PO DAILY, (Reported) Gabapentin 400 Mg Capsule, 400 MG PO DAILY, (Reported) Gabapentin 400 Mg Capsule, 800 MG PO 1800, (Reported) TAKES 2 (400MG) TABS L.acidoph & Paracasei,B.lactis 1 Each Capsule, 1 EACH PO DAILY, (Reported) Levocetirizine Dihydrochloride 5 Mg Tablet, 5 MG PO DAILY, (Reported) Memantine HCl 10 Mg Tablet, 10 MG PO HS, (Reported) Mirtazapine 45 Mg Tablet, 45 MG PO HS, (Reported) Montelukast Sodium 10 Mg Tablet, 10 MG PO HS, (Reported) Nitroglycerin 0.4 Mg Tab.subl, 0.4 MG SL UD PRN for CHEST PAIN (ANGINA), (Reported) Pantoprazole Sodium 40 Mg Tablet.dr, 40 MG PO BID, (Reported) Prednisone 5 Mg Tablet, 5 MG PO DAILY, (Reported) Primidone 250 Mg Tablet, 250 MG PO Q8H, (Reported) Ropinirole HCl 2 Mg Tablet, 2 MG PO HS, (Reported) Sertraline HCl 100 Mg Tablet, 100 MG PO DAILY, (Reported) Simvastatin 20 Mg Tablet, 20 MG PO HS, (Reported) Sucralfate 1 Gm Tablet, 1 GM PO ACHS, (Reported) Trazodone HCl 100 Mg Tablet, 200 MG PO HS, (Reported) TAKES 2 (100MG) TABS Patient Home Medication List Home Medication List Reviewed: Yes Review of Systems Review of Systems Constitutional: no symptoms reported EENTM: No Symptoms Reported Respiratory: No Symptoms Reported Cardiovascular: No Symptoms Reported Gastrointestinal: See HPI Genitourinary: See HPI Musculoskeletal: no symptoms reported Skin: no symptoms reported Psychiatric/Neurological: No Symptoms Reported Endocrine: No Symptoms Reported Hematologic/Lymphatic: No Symptoms Reported Past Dpetaee-Idqynk-Lburem Hx Past Med/Social Hx: Reviewed Nursing Past Med/Soc Hx Patient Social History Alcohol Use: Denies Use Recreational Drug Use: No Smoking Status: Current Everyday Smoker Type Used: Cigarettes Former Smoker, Quit: Dec 05, 2016 2nd Hand Smoke Exposure: Yes Recent Foreign Travel: No Contact w/Someone Who Travel: No Recent Infectious Disease Expo: No Recent Hopitalizations: No Immunizations Up To Date Tetanus Booster (TDap): Unknown PED Vaccines UTD: No Date of Pneumonia Vaccine: Jan 11, 2019 Date of Influenza Vaccine: Jan 11, 2019 Seasonal Allergies Seasonal Allergies: No Past Medical History Surgeries: Yes (4 neck surgeries, thumb surgery both hands, bilat carple tunnel) Abdominal, Appendectomy, Bladder Surgery (bladder resection for treatment of bladder cancer), Cardiac, Gallbladder, Joint Replacement, Orthopedic, Pancreatic, Tubal Ligation Respiratory: Yes Asthma, COPD Currently Using CPAP: No Currently Using BIPAP: No Cardiac: Yes Atrial Fibrillation, Coronary Artery Disease, High Cholesterol, Hypertension, Irregular Heartbeat, Palpitations, Peripheral Vascular Neurological: No Dementia, Headaches /Migraines, Neuropathy 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 Disorders: No 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 Disorders: 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 Sexually Transmitted Disease: No HIV/AIDS: No Genitourinary: Yes (SUPRAPUBIC CATH STARTED LAST MONTH) UTI-Chronic Gastrointestinal: Yes Gastroesophageal Reflux, Polyps, Hiatal Hernia, Gall Bladder Disease Musculoskeletal: Yes (CBP chronic knee pain, HIP REPLACEMENT 02/08/19) Arthritis Endocrine: Yes Hypothyroidsim, Diabetes, Non-Insulin dep HEENT: Yes (cataracts removed) Cataract Loss of Vision: Denies Hearing Impairment: Denies Cancer: Yes Bladder Did You Recieve Any Treatments: Yes What Type of Treatment Did You: Surgical Intervention Psychosocial: Yes Anxiety, Depression Integumentary: No Psoriasis Blood Disorders: No Adverse Reaction/Blood Tranf: No Family Medical History Reviewed Nursing Family Hx Cardiovascular disease G8 BROTHER (TRIPLE BYPASS) Diabetes mellitus 19 MOTHER FH: COPD (chronic obstructive pulmonary disease) 19 MOTHER FH: breast cancer 19 MOTHER FHx: brain cancer 19 FATHER No Pertinent Family Hx Physical Exam Vital Signs Vital Signs - First Documented 12/30/19 11:50 Temp 37.0 Pulse 101 Resp 16 B/P (MAP) 126/74 (91) Pulse Ox 97 O2 Delivery Room Air Capillary Refill : Less Than 3 Seconds Height/Weight/BMI Height: 5'4.00" Weight: 165lbs. 0.0oz. 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, no motor/sensory deficits, alert, normal mood/affect, oriented x 3 Skin: normal color, warm/dry Progress/Results/Core Measures Results/Orders Lab Results Laboratory Tests Test 12/30/19 12:00 12/30/19 12:07 Range/Units White Blood Count 9.0 4.3-11.0 10^3/uL Red Blood Count 4.90 3.80-5.11 10^6/uL Hemoglobin 13.7 11.5-16.0 g/dL Hematocrit 43 35-52 % Mean Corpuscular Volume 88 80-99 fL Mean Corpuscular Hemoglobin 28 25-34 pg Mean Corpuscular Hemoglobin Concent 32 32-36 g/dL Red Cell Distribution Width 16.2 H 10.0-14.5 % Platelet Count 261 130-400 10^3/uL Mean Platelet Volume 10.2 9.0-12.2 fL Immature Granulocyte % (Auto) 0 % Neutrophils (%) (Auto) 65 42-75 % Lymphocytes (%) (Auto) 24 12-44 % Monocytes (%) (Auto) 9 0-12 % Eosinophils (%) (Auto) 1 0-10 % Basophils (%) (Auto) 0 0-10 % Neutrophils # (Auto) 5.8 1.8-7.8 10^3/uL Lymphocytes # (Auto) 2.2 1.0-4.0 10^3/uL Monocytes # (Auto) 0.8 0.0-1.0 10^3/uL Eosinophils # (Auto) 0.1 0.0-0.3 10^3/uL Basophils # (Auto) 0.0 0.0-0.1 10^3/uL Immature Granulocyte # (Auto) 0.0 0.0-0.1 10^3/uL Sodium Level 134 L 135-145 MMOL/L Potassium Level 3.6 3.6-5.0 MMOL/L Chloride Level 102 98-107 MMOL/L Carbon Dioxide Level 19 L 21-32 MMOL/L Anion Gap 13 5-14 MMOL/L Blood Urea Nitrogen 10 7-18 MG/DL Creatinine 0.62 0.60-1.30 MG/DL Estimat Glomerular Filtration Rate > 60 BUN/Creatinine Ratio 16 Glucose Level 135 H 70-105 MG/DL Calcium Level 8.2 L 8.5-10.1 MG/DL Corrected Calcium 8.3 L 8.5-10.1 MG/DL Total Bilirubin 0.5 0.1-1.0 MG/DL Aspartate Amino Transf (AST/SGOT) 57 H 5-34 U/L Alanine Aminotransferase (ALT/SGPT) 48 0-55 U/L Alkaline Phosphatase 130 40-136 U/L C-Reactive Protein High Sensitivity 8.77 H 0.00-0.50 MG/DL Total Protein 6.7 6.4-8.2 GM/DL Albumin 3.9 3.2-4.5 GM/DL Urine Color YELLOW Urine Clarity CLEAR Urine pH 7.5 5-9 Urine Specific [place] 1.010 L 1.016-1.022 Urine Protein NEGATIVE NEGATIVE Urine Glucose (UA) NEGATIVE NEGATIVE Urine Ketones NEGATIVE NEGATIVE Urine Nitrite POSITIVE H NEGATIVE Urine Bilirubin NEGATIVE NEGATIVE Urine Urobilinogen 0.2 < = 1.0 MG/DL Urine Leukocyte Esterase 3+ H NEGATIVE Urine RBC (Auto) 2+ H NEGATIVE Urine RBC 5-10 H /HPF Urine WBC 50-100 H /HPF Urine Squamous Epithelial Cells 0-2 /HPF Urine Crystals NONE /LPF Urine Bacteria LARGE H /HPF Urine Casts NONE /LPF Urine Mucus NEGATIVE /LPF Urine Culture Indicated YES My Orders Orders - DAVIDSON CORTEZ MD Cbc With Automated Diff (12/30/19 11:49) Comprehensive Metabolic Panel (12/30/19 11:49) Hs C Reactive Protein (12/30/19 11:49) Ed Iv/Invasive Line Start (12/30/19 11:49) Ua Culture If Indicated (12/30/19 11:49) Fentanyl Injection (Sublimaze Injection (12/30/19 12:30) Ondansetron Injection (Zofran Injectio (12/30/19 12:30) Urine Culture (12/30/19 12:07) Ct Abdomen/Pelvis W (12/30/19 12:33) Iohexol Injection (Omnipaque 350 Mg/Ml 1 (12/30/19 12:45) Received Contrast (Hold Metformin- Contr (12/30/19 12:45) Sodium Chloride Flush (Catheter Flush Sy (12/30/19 12:45) Ns (Ivpb) (Sodium Chloride 0.9% Ivpb Bag (12/30/19 12:45) Ng Tube Insert & Assessment (12/30/19 13:06) Chest 1 View, Ap/Pa Only (12/30/19 13:06) Morphine Injection (Morphine Injection (12/30/19 13:38) Ceftriaxone For Iv Use (Rocephin For I (12/30/19 14:15) Chest 1 View, Ap/Pa Only (12/30/19 14:16) Promethazine Injection (Phenergan Injec (12/30/19 14:30) Medications Given in ED Current Medications Medications Dose Ordered Sig/[place] Route Start Time Stop Time Status Last Admin Dose Admin Ceftriaxone Sodium 1000 mg/ Sterile Water 10 ml @ 200 mls/hr ONCE ONCE IV 12/30/19 14:15 12/30/19 14:17 DC 12/30/19 14:28 200 MLS/HR Fentanyl Citrate 50 mcg ONCE ONCE IVP 12/30/19 12:30 12/30/19 12:31 DC 12/30/19 12:45 50 MCG Iohexol 100 ml ONCE ONCE IV 12/30/19 12:45 12/30/19 12:50 DC 12/30/19 13:00 92 ML Ondansetron HCl 8 mg ONCE ONCE IVP 12/30/19 12:30 12/30/19 12:31 DC 12/30/19 12:45 8 MG Vital Signs/I&O 12/30/19 11:50 Temp 37.0 Pulse 101 Resp 16 B/P (MAP) 126/74 (91) Pulse Ox 97 O2 Delivery Room Air Blood Pressure Mean: 91 Progress Progress Note : Progress Note Patient was treated with fentanyl and morphine for pain. Zofran and Phenergan were given for nausea. She was found to have a small bowel distraction by CT exam. NG tube was placed. Dr. Villasenor was consulted. UTI was identified and Rocephin was administered based on review of prior cultures. Diagnostic Imaging Diagonstic Imaging: CT Plain Films/CT/US/NM/MRI: abdomen, pelvis Comments CT abdomen and pelvis viewed by me and report reviewed. See report below: NAME: [facility] REC#: [id number] PT STATUS: REG ER : 1955 PHYSICIAN: DAVIDSON CORTEZ MD ADMIT DATE: 12/30/19/ER Signed Date of Exam:12/30/19 CT ABDOMEN/PELVIS W EXAMINATION: CT Abdomen and Pelvis with intravenous contrast. TECHNIQUE: Multiple contiguous axial images were obtained through the abdomen and pelvis after the uneventful administration of intravenous contrast. All CT scans use one or more of the following dose optimizing techniques: automated exposure control, MA and/or KvP adjustment based on a patient size and exam type, or iterative reconstruction. HISTORY: Abdominal pain, evaluate for bowel obstruction. COMPARISON: 11/03/2019. FINDINGS: Limited views of the lower thorax show mild atelectasis in the left lung base. Pneumobilia is present in the left lateral section. No suspicious liver lesions are seen. Common duct is prominent, but not particularly dilated given absence of the gallbladder. Gallbladder is not present. Pancreas is normal. Spleen is normal. Adrenal glands are normal. The kidneys are normal. There is no hydronephrosis. There has been a cystectomy with ileal conduit creation. There are dilated loops of small bowel with distally decompressed loops. The transition occurs in the pelvis and is obscured by left hip arthroplasty. There is a small amount of free fluid. No free air. No abdominal or pelvic lymphadenopathy. Aorta is normal in caliber without aneurysm. There are no suspicious osseous lesions. IMPRESSION: 1. Dilated bowel with distal decompressed loops. Transition point is in the pelvis and is obscured by streak artifact. This could represent ileus with a gradual transition or a bowel obstruction with a more abrupt transition. Difficult to determine given the inability to evaluate the transition point. Dictated by: Dictated on workstation # [id number] Dict: 12/30/19 1305 Trans: 12/30/19 1356 [facility] [id number] Interpreted by: RANI RICHTER MD Electronically signed by: RANI RICHTER MD 12/30/19 1356 Departure Communication (Admissions) Time/Spoke to Admitting Phy: 14:10 Dr. Mae Time/Spoke to Consulting Phy: 14:05 Dr. Villasenor Impression Primary Impression: Small bowel obstruction Additional Impression: Urinary tract infection Qualified Codes: N39.0 - Urinary tract infection, site not specified Disposition: ADMITTED INPATIENT Condition: Improved Admissions Decision to Admit Reason: Admit from ER (General) Decision to Admit/Date: Dec 30, 2019 Time/Decision to Admit Time: 13:00 Departure-Patient Inst. Referrals: VIPIN GOODMAN DO (PCP/Family) Primary Care Physician DAVIDSNO CORTEZ MD Dec 30, 2019 12:51
--- NOTE | 2019-12-30 13:31 | Diagnostic Imaging Report ---
EXAMINATION: CT Abdomen and Pelvis with intravenous contrast. TECHNIQUE: Multiple contiguous axial images were obtained through the abdomen and pelvis after the uneventful administration of intravenous contrast. All CT scans use one or more of the following dose optimizing techniques: automated exposure control, MA and/or KvP adjustment based on a patient size and exam type, or iterative reconstruction. HISTORY: Abdominal pain, evaluate for bowel obstruction. COMPARISON: 11/03/2019. FINDINGS: Limited views of the lower thorax show mild atelectasis in the left lung base. Pneumobilia is present in the left lateral section. No suspicious liver lesions are seen. Common duct is prominent, but not particularly dilated given absence of the gallbladder. Gallbladder is not present. Pancreas is normal. Spleen is normal. Adrenal glands are normal. The kidneys are normal. There is no hydronephrosis. There has been a cystectomy with ileal conduit creation. There are dilated loops of small bowel with distally decompressed loops. The transition occurs in the pelvis and is obscured by left hip arthroplasty. There is a small amount of free fluid. No free air. No abdominal or pelvic lymphadenopathy. Aorta is normal in caliber without aneurysm. There are no suspicious osseous lesions. IMPRESSION: 1. Dilated bowel with distal decompressed loops. Transition point is in the pelvis and is obscured by streak artifact. This could represent ileus with a gradual transition or a bowel obstruction with a more abrupt transition. Difficult to determine given the inability to evaluate the transition point. Dictated by: Dictated on workstation # [id number]
[2019-12-30] MEDS ORDERED: morphine INJ 10 MG/ML 1ML (SYR OR VIAL) IVP STA (13:38)
--- NOTE | 2019-12-30 14:01 | Diagnostic Imaging Report ---
EXAM: Portable erect AP chest at 1:33 PM INDICATION: NG line placement The heart is mildly enlarged but stable when compared to the prior exam of 11/01/2019. The central pulmonary vasculature does not seem as prominent as on the prior exam. There are still a few bronchovascular markings in the right infrahilar region. These are unchanged when compared to the previous study. There is no evidence for pneumonia or for a pleural effusion. The mediastinum is not widened. The osseous structures are intact. The orthopedic hardware overlying the lower cervical spine seen previously is again evident. There is no sign of a nasogastric tube. IMPRESSION: 1. There is mild cardiomegaly and chronic pulmonary disease but there is no evidence for an acute cardiopulmonary abnormality. 2. There is no sign of an NG tube. 3. These results were called to the patient's nursing station. Reportedly, an NG tube is to be inserted soon and a follow-up chest exam will be obtained after the NG line has been inserted. Dictated by: Dictated on workstation # [id number]
[2019-12-30] MEDS ORDERED: cefTRIAXone FOR IV USE 1,000 MG in WATER (STERILE) FOR INJECTION 10 ML IV ONE (14:15)
[2019-12-30] MEDS ORDERED: PROMETHAZINE INJ 25 MG/ML (PHENERGAN) AMP IVP ONE (14:30)
--- NOTE | 2019-12-30 14:30 | NUR ---
DR CARVALHO HERE TO SEE THE PT.
--- NOTE | 2019-12-30 14:45 | Diagnostic Imaging Report ---
EXAMINATION: Portable erect AP chest at 02:34 p.m. INDICATION: NG line placement. FINDINGS: In the interval since the exam performed earlier today at 01:33 p.m., an NG line has been inserted. The tip of the line overlies the gastric body and seems to be in good position. The overall appearance of the chest itself has not changed significantly otherwise. IMPRESSION: 1. The tip of the newly inserted NG line overlies the gastric body and seems to be in good position. 2. The overall appearance of the chest itself is stable. No new abnormality has developed. Dictated by: Dictated on workstation # [id number]
--- NOTE | 2019-12-30 14:53 | History & Physical-Hospitalist ---
History of Present Illness HPI/Chief Complaint Pt is a 64yoCF with a PMH of bladder cancer s/p cystectomy, HTN, tobacco abuse, NIDDMII, paroxysmal atrial fibrillation, and multiple abdominal surgeries who presented to the ER due to abdominal pain. She states she has not passed gas or had a BM for the past 3 days. She has had similar pain before but never as severe as this and was associated with her abdominal hernia. She was found to have a SBO on CT and is being admitted for management. She was also found to have a UTI. She has a urostomy so has no symptoms. She reports her pain is improving since she got here. NGT was just placed and XR is pending. Source: patient Date Seen 12/30/19 Time Seen by a Provider: 14:38 Attending Physician Rubio Mae MD PCP Lia Griffin DO Referring Physician Date of Admission Dec 30, 2019 at 14:29 Home Medications & Allergies Home Medications Reviewed patient Home Medication Reconciliation performed by pharmacy medication reconciliations retail service technician and/or nursing. Patients Allergies have been reviewed. Allergies Allergies Coded Allergies bacitracin (Verified Allergy, Intermediate, "I BREAK OUT IN A RASH ALL OVER.", 04/20/19) neomycin (Verified Allergy, Intermediate, "I BREAK OUT IN A RASH ALL OVER.", 04/20/19) polymyxin B (Verified Allergy, Intermediate, "I BREAK OUT IN A RASH ALL OVER.", 04/20/19) ibuprofen (Verified Allergy, Mild, RASH, 04/20/19) naproxen (Verified Allergy, Mild, RASH, 04/20/19) Past Xmsmjnl-Xxrigo-Ytijzs Hx Past Med/Social Hx: Reviewed Nursing Past Med/Soc Hx Patient Social History Alcohol Use: Denies Use Recreational Drug Use: No Smoking Status: Current Everyday Smoker Cigaretts per day: 20 Former Smoker, Quit: Dec 05, 2016 Type Used: Cigarettes 2nd Hand Smoke Exposure: Yes Recent Foreign Travel: No Contact w/other who traveled: No Recent Hopitalizations: No Recent Infectious Disease Expo: No Immunizations Up To Date Tetanus Booster (TDap): Unknown Pediatric: No Date of Pneumonia Vaccine: Jan 11, 2019 Date of Influenza Vaccine: Jan 11, 2019 Seasonal Allergies Seasonal Allergies: No Past Medical History Surgeries: Abdominal (hernias, ex-lap), Appendectomy, Bladder Surgery (bladder resection for treatment of bladder cancer 04/2019), Cardiac, Gallbladder, Joint Replacement, Orthopedic, Pancreatic, Tubal Ligation Respiratory: COPD, Emphysema Currently Using CPAP: No Currently Using BIPAP: No Cardiac: Atrial Fibrillation, Coronary Artery Disease, High Cholesterol, Hypertension, Irregular Heartbeat, Palpitations, Peripheral Vascular Neurological: Dementia, Headaches /Migraines, Neuropathy 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: No Sexually Transmitted Disease: No HIV/AIDS: No 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 Disorders: Denies Menopausal Genitourinary: UTI-Chronic Gastrointestinal: Gastroesophageal Reflux, Polyps, Hiatal Hernia, Gall Bladder Disease Musculoskeletal: Arthritis Endocrine: Hypothyroidsim, Diabetes, Non-Insulin dep HEENT: Cataract Loss of Vision: Denies Hearing Impairment: Denies Cancer: Bladder Did You Recieve Any Treatments: Yes What Type of Treatment Did You: Surgical Intervention Psychosocial: Anxiety, Depression Skin/Integumentary: Psoriasis History of Blood Disorders: No Adverse Reaction to Blood [place]: No Family History Reviewed Nursing Family Hx Cardiovascular disease G8 BROTHER (TRIPLE BYPASS) Diabetes mellitus 19 MOTHER FH: COPD (chronic obstructive pulmonary disease) 19 MOTHER FH: breast cancer 19 MOTHER FHx: brain cancer 19 FATHER No Pertinent Family Hx Review of Systems Constitutional: No chills, No fever EENTM: no symptoms reported Respiratory: no symptoms reported Cardiovascular: No chest pain, No palpitations Gastrointestinal: see HPI, abdominal pain, constipation, nausea; No vomiting Genitourinary: see HPI; No decreased output, No dysuria Musculoskeletal: no symptoms reported Skin: no symptoms reported Psychiatric/Neurological: No Symptoms Reported Physical Exam Physical Exam Vital Signs Vital Signs - First Documented 12/30/19 12/30/19 11:50 17:10 Temp 37.0 Pulse 101 Resp 16 B/P (MAP) 126/74 (91) Pulse Ox 97 O2 Delivery Room Air O2 Flow Rate 2.00 Capillary Refill : Less Than 3 Seconds Height, Weight, BMI Height: 5'4.00" Weight: 165lbs. 0.0oz. 72.172869at; 28.00 BMI Method:Stated General Appearance: No Apparent Distress, WD/WN HEENT: PERRL/EOMI; No Scleral Icterus (L), No Scleral Icterus (R); Other (NGT in place) Neck: Normal Inspection, Supple Respiratory: Lungs Clear, No Accessory Muscle Use, No Respiratory Distress Cardiovascular: Regular Rate, Rhythm, No Murmur Gastrointestinal: Abnormal Bowel Sounds (absent), Tenderness (diffuse), Other (urostomy bag) Extremity: Normal Capillary Refill, No Calf Tenderness, No Pedal Edema Neurologic/Psychiatric: Alert, Oriented x3, Normal Mood/Affect Skin: Normal Color, Warm/Dry Results Results/Procedures Labs Patient resulted labs reviewed. Imaging: Reviewed Imaging Report Imaging [facility] [place], [place] NAME: MINGO JOSÉ [facility] REC#: [id number] PT STATUS: REG ER : 1955 PHYSICIAN: DAVIDSON CORTEZ MD ADMIT DATE: 12/30/19/ER Signed Date of Exam:12/30/19 CT ABDOMEN/PELVIS W EXAMINATION: CT Abdomen and Pelvis with intravenous contrast. TECHNIQUE: Multiple contiguous axial images were obtained through the abdomen and pelvis after the uneventful administration of intravenous contrast. All CT scans use one or more of the following dose optimizing techniques: automated exposure control, MA and/or KvP adjustment based on a patient size and exam type, or iterative reconstruction. HISTORY: Abdominal pain, evaluate for bowel obstruction. COMPARISON: 11/03/2019. FINDINGS: Limited views of the lower thorax show mild atelectasis in the left lung base. Pneumobilia is present in the left lateral section. No suspicious liver lesions are seen. Common duct is prominent, but not particularly dilated given absence of the gallbladder. Gallbladder is not present. Pancreas is normal. Spleen is normal. Adrenal glands are normal. The kidneys are normal. There is no hydronephrosis. There has been a cystectomy with ileal conduit creation. There are dilated loops of small bowel with distally decompressed loops. The transition occurs in the pelvis and is obscured by left hip arthroplasty. There is a small amount of free fluid. No free air. No abdominal or pelvic lymphadenopathy. Aorta is normal in caliber without aneurysm. There are no suspicious osseous lesions. IMPRESSION: 1. Dilated bowel with distal decompressed loops. Transition point is in the pelvis and is obscured by streak artifact. This could represent ileus with a gradual transition or a bowel obstruction with a more abrupt transition. Difficult to determine given the inability to evaluate the transition point. Dictated by: Dictated on workstation # [id number] Dict: 12/30/19 1305 Trans: 12/30/19 1356 [id number] Interpreted by: RANI RICHTER MD Electronically signed by: RANI RICHTER MD 12/30/19 1356 [facility] [place], [place] NAME: MINGO JOSÉ MED REC#: [id number] PT STATUS: REG ER : 1955 PHYSICIAN: DAVIDSON CORTEZ MD ADMIT DATE: 12/30/19/ER Draft Date of Exam:12/30/19 CHEST 1 VIEW, AP/PA ONLY EXAM: Portable erect AP chest at 1:33 PM INDICATION: NG line placement The heart is mildly enlarged but stable when compared to the prior exam of 11/01/2019. The central pulmonary vasculature does not seem as prominent as on the prior exam. There are still a few bronchovascular markings in the right infrahilar region. These are unchanged when compared to the previous study. There is no evidence for pneumonia or for a pleural effusion. The mediastinum is not widened. The osseous structures are intact. The orthopedic hardware overlying the lower cervical spine seen previously is again evident. There is no sign of a nasogastric tube. IMPRESSION: 1. There is mild cardiomegaly and chronic pulmonary disease but there is no evidence for an acute cardiopulmonary abnormality. 2. There is no sign of an NG tube. 3. These results were called to the patient's nursing station. Dictated on workstation # [id number] Dict: 12/30/19 1352 Trans: 12/30/19 1401 [facility] [id number] Interpreted by: ZAKIYA VICTORIA MD Electronically signed by: Assessment/Plan Admission Diagnosis SBO Admission Status: Inpatient Order (span 2 midnights) Reason for Inpatient Admission: see below Assessment and Plan SBO NGT in place, XR for placement pending NPO Surgery consulted Pain regimen Await bowel function UTI Bladder cancer s/p cystectomy with urostomy Continue Rocephin Await cultures No evidence of sepsis Atrial Fibrillation HTN Rate controlled Cover stroke ppx with Lovenox Await med rec to resume other home meds NIDDMII BS 135 currently trend SSI Diagnosis/Problems Diagnosis/Problems (1) Small bowel obstruction Status: Acute (2) Urinary tract infection Status: Acute Qualifiers: Urinary tract infection type: site unspecified Hematuria presence: without hematuria Qualified Codes: N39.0 - Urinary tract infection, site not specified (3) Bladder cancer Status: Chronic Qualifiers: Bladder location: unspecified site Qualified Codes: C67.9 - Malignant neoplasm of bladder, unspecified (4) Presence of urostomy Status: Acute (5) Tobacco abuse Status: Acute (6) Non-insulin treated type 2 diabetes mellitus Status: Chronic (7) COPD (chronic obstructive pulmonary disease) with chronic bronchitis Status: Chronic (8) Chronic atrial fibrillation Status: Chronic (9) CAD (coronary artery disease) Status: Chronic Qualifiers: Coronary Disease-Associated Artery/Lesion type: [place] artery [place] vs. transplanted heart: [place] heart Associated angina: without angina Qualified Codes: I25.10 - Atherosclerotic heart disease of [place] coronary artery without angina pectoris (10) HLD (hyperlipidemia) Status: Chronic Qualifiers: Hyperlipidemia type: unspecified Qualified Codes: E78.5 - Hyperlipidemia, unspecified RUBIO MAE MD Dec 30, 2019 14:53
--- NOTE | 2019-12-30 15:00 | NUR ---
Nara Bhupendra admitted to room 427-1, with an admitting diagnosis of SBO and UTI, on 12/30/19 from [place] via , accompanied by .NARA JOSÉ introduced to surroundings, call light, bed controls, phone, TV, temperature control, lights, meal times, smoking policy, visitor policy, side rail policy, bathrooms and showers. Patient Rights given to patient in the handbook.NARA JOSÉ verbalizes understanding that [facility] is not responsible for the loss or damage to any personal effects or valuables that are kept in the patients posession during their hospitalization. NARA JOSÉ verbalizes understanding of Interdisciplinary Patient Education. Patient and/or family were informed about the Rapid Response Team and its purpose.
[2019-12-30] MEDS ORDERED: morphine INJ 10 MG/ML 1ML (SYR OR VIAL) IV PRN (15:15)
[2019-12-30 15:22] VITALS: BP 130/82
[2019-12-30] MEDS: LACTATED RINGERS 1,000 ML IV SCH ×2 (15:53→21:55)
[2019-12-30 16:00] VITALS: BP 130/82
[2019-12-30] MEDS ORDERED: RT-ALBUTEROL/IPRATROPIUM 3 ML (DUONEB) VIAL INH PRN (16:30)
[2019-12-30] MEDS ORDERED: ENOXAPARIN 100 MG/1 ML (LOVENOX) SYR SC SCH (16:45)
[2019-12-30] MEDS: RT-ALBUTEROL/IPRATROPIUM 3 ML (DUONEB) VIAL INH SCH ×2 (17:09→21:40)
[2019-12-30] MEDS ORDERED: AMIT50TA3 PO (17:28)
[2019-12-30] MEDS ORDERED: DIGO250T3 PO (17:28)
[2019-12-30] MEDS ORDERED: NITR0.4T39 SL (17:28)
[2019-12-30] MEDS ORDERED: MIRT45TA75 PO (17:28)
[2019-12-30] MEDS ORDERED: ROPI2TAB6 PO (17:28)
[2019-12-30] MEDS ORDERED: FLDR.1T PO (17:28)
[2019-12-30] MEDS ORDERED: EREN70AU (17:28)
--- NOTE | 2019-12-30 17:34 | CONSULTATION REPORT ---
DATE OF SERVICE: 12/30/2019 ATTENDING PRIMARY CARE PHYSICIAN: Dr. Lia Griffin. ADMITTING PHYSICIAN: Dr. Mae. HISTORY OF PRESENT ILLNESS: The patient is a 64-year-old female, who presented to the Emergency Department with a crampy abdominal pain as well as nausea and vomiting. She reports that she has not had a bowel movement for the past 3 days; however, does have a history of constipation. She has had multiple abdominal surgeries including a history of bladder cancer requiring a radical cystectomy as well as urostomy formation. She reports that after that surgery, she developed some form of hernia requiring what sounds to be a hernia repair as well as a small bowel resection. This was all done in September and October 2019. A CT scan was performed, which showed some dilatation of the small bowel, which may indicate an ileus versus a partial small-bowel obstruction. We will proceed with conservative therapy for now and proceed with NG tube decompression and bowel rest as well as IV hydration. It also appears that she does have a urinary tract infection, which may promote an ileus and we will treat that as well. PAST MEDICAL HISTORY: Bladder cancer, atrial fibrillation, coronary artery disease, peripheral vascular disease, hypercholesterolemia, hypertension, migraine headaches, neuropathy, diabetes, hypothyroid, cataracts, anxiety, psoriasis. PAST SURGICAL HISTORY: Radical cystectomy and urostomy formation, incarcerated hernia repair, requiring what sounds to be a hernia repair as well as a small bowel resection in 10/2019, open cholecystectomy, bilateral carpal tunnel release, left cubital tunnel release, neck ORIF x4, bilateral carpal tunnel release, total left hip arthroplasty, tubal ligation. ALLERGIES: BACITRACIN, TRAMADOL, IBUPROFEN TRIPLE ANTIBIOTIC OINTMENT. SOCIAL HISTORY: Positive smoke, 60 pack years. Negative alcohol. FAMILY HISTORY: Mother, breast cancer. Maternal grandmother, breast cancer. VITAL SIGNS: Temperature 36.3, blood pressure 130/82, pulse 93, respirations 22, pulse ox 93% on room air. REVIEW OF SYSTEMS: Well-nourished female, in no acute distress. She is not experiencing any shortness of breath or difficulty breathing. No chest pain, palpitations, diaphoresis. Intermittent episodes of nausea and vomiting for the past 3 days. No diarrhea, constipation, no red blood per rectum, no dark tarry stools. No fever, chills, no recent inadvertent weight loss. All other review of systems negative. PHYSICAL EXAMINATION: CHEST: Distant breath sounds and scattered wheezes bilaterally. HEART: Regular, no murmurs. EXTREMITIES: No lower extremity edema, negative Homans sign. HEENT: No scleral icterus. NECK: No cervical lymphadenopathy. ABDOMEN: Soft, nontender, nondistended, no palpable hernias. SKIN: Warm, dry. LABORATORY DATA: WBC 9.0, hemoglobin 13.7, hematocrit 43, platelets 261. BUN 10, creatinine 0.62. ASSESSMENT AND PLAN: A 64-year-old female with partial small-bowel obstruction versus an ileus as well as a urinary tract infection and resultant dehydration. We will proceed with conservative medical therapy with IV hydration, bowel rest, NG tube decompression as well as treating the urinary tract infection. Hopefully, over time, she will regain bowel function and at that time, we will then remove the NG tube and start clear liquid diet and slowly advance as tolerated. Job ID: [id number] DocumentID: [id number] Dictated Date: 12/30/2019 16:54:46 Creche Attendant Date: 12/30/2019 17:33:38 Dictated By: PETAR NORMAN MD [facility]
[2019-12-30] MEDS: PROMETHAZINE INJ 25 MG/ML (PHENERGAN) AMP IVP PRN (17:35)
[2019-12-30] MEDS: ENOXAPARIN 80 MG/0.8 ML (LOVENOX) SYR SC SCH (17:35)
[2019-12-30] MEDS ORDERED: CHOL10002 PO (18:18)
[2019-12-30] MEDS ORDERED: TRAZ-227 PO (18:18)
[2019-12-30] MEDS ORDERED: L.AC1CAP6 PO (18:18)
[2019-12-30] MEDS ORDERED: FURO20TA4 PO (18:18)
[2019-12-30] MEDS ORDERED: FLUT1BLS3 IH (18:18)
[2019-12-30] MEDS ORDERED: GABA-490 PO ×2 (18:18)
[2019-12-30] MEDS ORDERED: DOCU100T2 PO (18:18)
[2019-12-30] MEDS ORDERED: MONT10TA26 PO (18:18)
[2019-12-30] MEDS ORDERED: CYAN-41 PO (18:18)
[2019-12-30] MEDS ORDERED: ASCO500C17 PO (18:18)
[2019-12-30] MEDS ORDERED: PRED5TAB PO (18:21)
--- NOTE | 2019-12-30 18:40 | NUR ---
SPOKE WITH THE PT (SHE HAS A DETAILED MED LIST THAT I WILL ATTACH TO HER CHART) WENT THRU THE EXT MED HISTORY AND CALLED HER MAIL ORDER PHARM TO COMPLETE THE MED REC FILL DATES FROM [employer] [facility]: 06-01-2019 BACLOFEN 10MG #270/90DS 06-22-2019 PRIMIDONE 250MG #270/90DS 07-16-2019 DONEPEZIL 10MG #90/90DS 07-28-2019 ELIQUIS 5,G #180/90DS 08-05-2019 TRELEGY INH #3/90DS 09-24-2019 TRAZODONE 100MG #180/90DS 11-01-2019 ABILIFY 10MG #135/90DS 11-04-2019 CARAFATE 1GM #360/90DS 11-04-2019 FUROSEMIDE 20MG #90/90DS 11-04-2019 MEMANTINE 5MG #180/90DS 11-04-2019 FARXIGA 5MG #90/90DS 11-04-2019 LEVOCETIRIZINE 5MG #90/90DS 11-04-2019 MONTELUKAST 10MG # 90/90DS 11-04-2019 PANTOPRAZOLE 40MG #90/90DS 11-07-2019 GABAPENTIN 400MG #360/90DS WELCHOL 625MG AND PREDNISONE 5MG- I COULD NOT FIND A PHARMACY THAT HAS FILLED THESE RECENTLY- PT IS ADAMANT SHE HAS THEM AT HOME. I LEFT THEM ON THE MED REC AT THIS TIME AND WILL CONTINUE TO TRY AND FIND WHERE THEY WERE LAST FILLED ALL OTHER MEDICATIONS ARE LISTED ON THE EXT MED HISTORY OTC MEDS: DOCUSATE VIT D3 IT B12 VIT C PROBIOTIC FLONASE
[2019-12-30 20:00] VITALS: BP 110/63
[2019-12-30] MEDS: FAMOTIDINE 20MG/2ML IV (PEPCID) IV SCH (20:20)
[2019-12-30] MEDS: CIPROFLOXACIN IV 400MG/200ML 200 ML IV SCH (20:20)
[2019-12-30] MEDS: fentaNYL INJECTION 100 MCG/2 ML AMP IVP PRN (20:27)
[2019-12-30] MEDS ORDERED: LORazepam INJ 2 MG/ML (ATIVAN) VIAL IVP PRN (21:00)
[2019-12-30] MEDS: HYDROCORTISONE 100 MG/2 ML (Solu-CORTEF) VIAL IV SCH (21:55)
[2019-12-30] MEDS: LORazepam INJ 2 MG/ML (ATIVAN) VIAL IVP PRN (21:55)
[2019-12-31] VITALS: BP 121/70
[2019-12-31] MEDS: fentaNYL INJECTION 100 MCG/2 ML AMP IVP PRN ×6 (01:01→20:22)
[2019-12-31] MEDS: RT-ALBUTEROL/IPRATROPIUM 3 ML (DUONEB) VIAL INH SCH ×6 (01:37→21:45)
[2019-12-31] MEDS: PROMETHAZINE INJ 25 MG/ML (PHENERGAN) AMP IVP PRN ×3 (03:40→21:43)
[2019-12-31] MEDS: LACTATED RINGERS 1,000 ML IV SCH ×3 (03:40→18:34)
[2019-12-31 04:00] VITALS: BP 111/56
[2019-12-31] MEDS: HYDROCORTISONE 100 MG/2 ML (Solu-CORTEF) VIAL IV SCH ×3 (05:31→21:49)
[2019-12-31] MEDS: ENOXAPARIN 80 MG/0.8 ML (LOVENOX) SYR SC SCH ×2 (05:32→18:31)
[2019-12-31] MEDS: inSUlin ASPART (NovoLOG) 1 UNIT/0.01 ML (CHARGE PER UNIT) SC SCH ×4 (05:32→20:58)
[2019-12-31 08:00] VITALS: BP 118/60
[2019-12-31] MEDS: NICOTINE 21 MG (NICODERM) PATCH TD SCH (08:27)
[2019-12-31] MEDS: PANTOPRAZOLE 40 MG (PROTONIX) VIAL IV SCH (08:27)
[2019-12-31] MEDS: FAMOTIDINE 20MG/2ML IV (PEPCID) IV SCH ×2 (08:28→20:41)
[2019-12-31] MEDS: CIPROFLOXACIN IV 400MG/200ML 200 ML IV SCH ×2 (08:29→20:23)
[2019-12-31] MEDS: NICOTINE PATCH REMOVAL TP SCH (09:00)
--- NOTE | 2019-12-31 09:04 | Progress Note ---
SHAYLEE SALMON LAMINATION INSPECTOR 12/31/19 0904: Subjective Date Seen by a Provider: Dec 31, 2019 Time Seen by a Provider: 08:00 Subjective/Events-last exam Patient reports this morning that she is doing a little better. She reports that she started passing some gas this morning but is still nauseous but no vomiting. She reports some abdominal pain but is improving. She reports that she tried some water but made her nauseous. Denies any fever or chills. Objective Exam Vital Signs Date Time Temp Pulse Resp B/P (MAP) Pulse Ox O2 Delivery O2 Flow Rate FiO2 12/31/19 08:00 36.4 101 18 118/60 (79) 94 Nasal Cannula 2.00 12/31/19 07:14 96 Nasal Cannula 2.00 12/31/19 04:00 36.6 104 20 111/56 (74) 97 Nasal Cannula 2.00 12/31/19 01:38 97 Nasal Cannula 2.00 12/31/19 00:00 36.7 101 21 121/70 (87) 97 Nasal Cannula 2.00 12/30/19 22:37 92 Nasal Cannula 2.00 12/30/19 20:00 Nasal Cannula 2.00 12/30/19 20:00 36.6 100 18 110/63 (79) 94 Nasal Cannula 2.00 12/30/19 17:10 92 Nasal Cannula 2.00 12/30/19 16:00 36.3 111 22 130/82 (98) 93 Room Air 12/30/19 15:45 93 12/30/19 15:22 36.3 111 22 130/82 93 Room Air 12/30/19 14:52 79 16 126/81 92 Room Air 12/30/19 11:50 37.0 101 16 126/74 (91) 97 Room Air I & O 12/31/19 07:00 Intake Total 10 ml Output Total 2700 ml Balance -2690 ml Capillary Refill : Less Than 3 Seconds General Appearance: No Apparent Distress, WD/WN Neck: Normal Inspection, Supple Respiratory: Normal Breath Sounds, No Accessory Muscle Use, No Respiratory Distress Cardiovascular: Regular Rate, Rhythm, No Edema Gastrointestinal: soft, tenderness, other (Right side urostomy functioning well.) Extremity: Normal Range of Motion, Non Tender Neurologic/Psychiatric: Alert, Oriented x3 Skin: Normal Color, Warm/Dry Results Lab Laboratory Tests 12/30/19 12:00: White Blood Count 9.0, Red Blood Count 4.90, Hemoglobin 13.7, Hematocrit 43, Mean Corpuscular Volume 88, Mean Corpuscular Hemoglobin 28, Mean Corpuscular Hemoglobin Concent 32, Red Cell Distribution Width 16.2H, Platelet Count 261, Mean Platelet Volume 10.2, Immature Granulocyte % (Auto) 0, Neutrophils (%) ( Auto) 65, Lymphocytes (%) (Auto) 24, Monocytes (%) (Auto) 9, Eosinophils (%) (Auto) 1, Basophils (%) (Auto) 0, Neutrophils # (Auto) 5.8, Lymphocytes # (Auto) 2.2, Monocytes # (Auto) 0.8, Eosinophils # (Auto) 0.1, Basophils # (Auto) 0.0, Immature Granulocyte # (Auto) 0.0, Sodium Level 134L, Potassium Level 3.6, Chloride Level 102, Carbon Dioxide Level 19L, Anion Gap 13, Blood Urea Nitrogen 10, Creatinine 0.62, Estimat Glomerular Filtration Rate > 60, BUN/Creatinine R atio 16, Glucose Level 135H, Calcium Level 8.2L, Corrected Calcium 8.3L, Total Bilirubin 0.5, Aspartate Amino Transf (AST/SGOT) 57H, Alanine Aminotransferase (ALT/SGPT) 48, Alkaline Phosphatase 130, C-Reactive Protein High Sensitivity 8.77H, Total Protein 6.7, Albumin 3.9 12/30/19 12:07: Urine Color YELLOW, Urine Clarity CLEAR, Urine pH 7.5, Urine Specific [place] 1.010L, Urine Protein NEGATIVE, Urine Glucose (UA) NEGATIVE, Urine Ketones NEGATIVE, Urine Nitrite POSITIVEH, Urine Bilirubin NEGATIVE, Urine Urobilinogen 0.2, Urine Leukocyte Esterase 3+H, Urine RBC (Auto) 2+H, Urine RBC 5-10H, Urine WBC 50-100H, Urine Squamous Epithelial Cells 0-2, Urine Crystals NONE, Urine Bacteria LARGEH, Urine Casts NONE, Urine Mucus NEGATIVE, Urine Culture Indicated YES 12/31/19 00:16: Glucometer 118H 12/31/19 05:30: Glucometer 112H Microbiology 12/30/19 Urine Culture - Preliminary, Resulted Gram Negative Iraj Assessment/Plan Assessment/Plan Assess & Plan/Chief Complaint A 64-year-old female with partial small-bowel obstruction versus an ileus aswell as a urinary tract infection and resultant dehydration. VSS Will continue with IV hydration, bowel rest, NG tube decompression Continue abx, pain, and nausea medications Encourage ambulation Patient reports passing some flatus this morning, but still feels nauseated and having abdominal pain, but has improved. Once her pain and nausea are minimal, then her NGT can be clamped and a trial of clear liquids started. Once she is tolerating clear liquids, then her diet may be advanced. Clinical Quality Measures DVT/VTE Risk/Contraindication: Risk Factor Score Per Nursin RFS Level Per Nursing on Admit: 4+=Very High CAPRI LEVINE DO 12/31/19 1214: Subjective Time Seen by a Provider: 10:01 Subjective/Events-last exam Pt seen and examined, states she still has some nausea and is vomiting up "slime". She also had a small firm BM today. Review of Systems General: No Chills, No Night Sweats Pulmonary: No Dyspnea, No Cough Gastrointestinal: Nausea, Vomiting, Abdominal Pain (very minimal) Objective Exam General Appearance: No Apparent Distress, WD/WN Respiratory: Lungs Clear, Normal Breath Sounds, No Accessory Muscle Use, No Respiratory Distress Cardiovascular: Regular Rate, Rhythm, No Murmur Gastrointestinal: non tender, soft, no organomegaly; No distended Assessment/Plan Assessment/Plan Assess & Plan/Chief Complaint PSBO Continue NGT, NPO. Pt encouraged to ambulate and use IS. SHAYLEE SALMON APRN Dec 31, 2019 09:04 CAPRI LEVINE DO Dec 31, 2019 12:14
--- NOTE | 2019-12-31 10:09 | Diagnostic Imaging Report ---
INDICATION: Small bowel obstruction. Evaluate gastric tube. COMPARISON: CT dated 12/30/2019 FINDINGS: Supine and upright radiographic views of the abdomen were obtained. Small bowel loops are nondistended. There is no large collection of free intraperitoneal air. No abnormal air-fluid levels are identified. Indwelling gastric tube is seen. Tip is likely within the lumen of the stomach. Side port, however, resides approximately 3 cm above the hiatus. Moderate air and stool is noted within the right colon. Osseous structures show no acute abnormalities. IMPRESSION: 1. Nonobstructed small bowel gas pattern. 2. Moderate air and stool within the right colon. 3. Indwelling gastric tube as above. May want to consider advancing and reimaging. Dictated by: Dictated on workstation # [id number]
[2019-12-31] MEDS: ONDANSETRON 4 MG/2 ML (SDV) Z0FRAN IV PRN ×2 (11:22→15:01)
[2019-12-31] MEDS ORDERED: KETOROLAC 15 MG/ML VIAL IVP NR (11:45)
--- NOTE | 2019-12-31 11:58 | Progress Note - Hospitalist ---
Subjective HPI/CC On Admission Date Seen by Provider: Dec 31, 2019 Time Seen by Provider: 11:56 Pt is a 64yoCF with a PMH of bladder cancer s/p cystectomy, HTN, tobacco abuse, NIDDMII, paroxysmal atrial fibrillation, and multiple abdominal surgeries who presented to the ER due to abdominal pain. She states she has not passed gas or had a BM for the past 3 days. She has had similar pain before but never as severe as this and was associated with her abdominal hernia. She was found to have a SBO on CT and is being admitted for management. She was also found to have a UTI. She has a urostomy so has no symptoms. She reports her pain is improving since she got here. NGT was just placed and XR is pending. Subjective/Events-last exam Pt reports doing better today. Was up to commode today and had very small hard BM. Still having nausea. Objective Exam Vital Signs Vital Signs Date Time Temp Pulse Resp B/P (MAP) Pulse Ox O2 Delivery O2 Flow Rate FiO2 12/31/19 08:25 Nasal Cannula 2.00 12/31/19 08:00 36.4 101 18 118/60 (79) 94 Capillary Refill : Less Than 3 Seconds General Appearance: No Apparent Distress, Chronically ill HEENT: Other (NGT in place) Respiratory: Lungs Clear, No Respiratory Distress Cardiovascular: Regular Rate, Rhythm, No Murmur Gastrointestinal: Soft, Abnormal Bowel Sounds (quiet), Tenderness (mild, d iffuse) Neurologic/Psychiatric: Alert, Oriented x3 Results/Procedures Lab Laboratory Tests 12/30/19 12:00 Patient resulted labs reviewed. Imaging: Reviewed Imaging Report Assessment/Plan Assessment and Plan Assess & Plan/Chief Complaint SBO Continue decompression with NGT NPO Surgery consulted, appreciate assistance Pain regimen Await bowel function UTI Bladder cancer s/p cystectomy with urostomy Continue Rocephin Culture shows GNR Atrial Fibrillation HTN Rate controlled Cover stroke ppx with Lovenox Resume home meds as able NIDDMII BS 135 currently trend SSI Diagnosis/Problems Diagnosis/Problems (1) Small bowel obstruction Status: Acute (2) Urinary tract infection Status: Acute Qualifiers: Urinary tract infection type: site unspecified Hematuria presence: without hematuria Qualified Codes: N39.0 - Urinary tract infection, site not specified (3) Bladder cancer Status: Chronic Qualifiers: Bladder location: unspecified site Qualified Codes: C67.9 - Malignant neoplasm of bladder, unspecified (4) Presence of urostomy Status: Acute (5) Tobacco abuse Status: Acute (6) Non-insulin treated type 2 diabetes mellitus Status: Chronic (7) COPD (chronic obstructive pulmonary disease) with chronic bronchitis Status: Chronic (8) Chronic atrial fibrillation Status: Chronic (9) CAD (coronary artery disease) Status: Chronic Qualifiers: Coronary Disease-Associated Artery/Lesion type: [place] artery [place] vs. transplanted heart: [place] heart Associated angina: without angina Qualified Codes: I25.10 - Atherosclerotic heart disease of [place] coronary artery without angina pectoris (10) HLD (hyperlipidemia) Status: Chronic Qualifiers: Hyperlipidemia type: unspecified Qualified Codes: E78.5 - Hyperlipidemia, unspecified Clinical Quality Measures DVT/VTE Risk/Contraindication: Risk Factor Score Per Nursin RFS Level Per Nursing on Admit: 4+=Very High RUBIO CARVALHO MD Dec 31, 2019 11:58
[2019-12-31 12:00] VITALS: BP 98/55
--- NOTE | 2019-12-31 14:30 | NUR ---
RD ASSESSMENT PMHx: CA(bladder); HTN; tobacco abuse; DM; hypercholesterolemia; GERD; chronic UTI; dementia; current - SBO PT INTERACTION: Pt was awake and pleasant during nutrition assessment. Note pt has hx of dementia, per chart review. Pt states current appetite is good, but was poor "for the past month or so." Note pt currently NPO x1d, per chart review. Pt states following a regular diet at home, and has some issues with chewing, resulting from poor fitting dentures. Pt states some recent issues with nausea, constipation, and diarrhea. Note pt stated she had not had a BM in 3days, per H&P. Note pt not currently on bowel regimen per chart review. Pt states recent 10# wt loss, but unsure of timeframe. Note unable to determine recent wt hx, per chart review. Pt states allergy to strawberries. ABNORMAL NUTRITION-RELATED LAB VALUES LOW: Na 134; CA 8.2; HIGH: AST 57 Est. kcal needs: 1375 kcal | 20 kcal/kg Est. Pro needs: 55 g Pro | 0.8 g Pro/kg PES STATEMENT: Inadequate oral intake (NI-2.1) related to loss of appetite | nausea | constipation | diarrhea | NPO status as evidenced by pt interview | chart review INTERVENTION: Note pt is currently NPO x1d. Would recommend diet advancement to Clear Liquid diet, when medically able and as tolerated. Will continue to follow and reassess as pt needs, intake, and status change. Amanda Bradley, MS, RD, LD
--- NOTE | 2019-12-31 15:00 | NUR ---
pt is nauseous at this time and did not want a breathing tx. Addendum: 12/31/19 at 1501 by JANNIE SERNA RT Amended: Links added.
[2019-12-31 16:43] VITALS: BP 111/66
[2019-12-31] MEDS: HYDROcodone/APAP 7.5 MG/325 MG (LORTAB, LORCET PLUS) TABLET PO PRN ×2 (20:23→20:24)
--- NOTE | 2019-12-31 21:03 | NUR ---
THIS NURSE PULLED HYDROCODONE 7.5/325 FOR THIS PT SHE TOLD MY PRECEPTOR KATHRINE SHE WAS IN PAIN. I CAME INTO THE ROOM, SCANNED THE PT'S BRACELET AND SCANNED THE MED/OPENED IT FROM IT'S PACKAGE. PT IS NPO WITH NG TUBE, AND I PLACED THE HYDRO PILL IN THE SHARPS. FENTANYL WAS THEN GIVEN IV FOR PAIN. WILL WASTE MED IN PIXUS.
[2019-12-31] MEDS: LORazepam INJ 2 MG/ML (ATIVAN) VIAL IVP PRN (21:44)
[2020-01-01] VITALS: BP_SYST 117; BP_SYST 118; BP_DIAS 67; BP_DIAS 72
[2020-01-01] MEDS: RT-ALBUTEROL/IPRATROPIUM 3 ML (DUONEB) VIAL INH SCH ×6 (02:28→23:09)
[2020-01-01] MEDS: LACTATED RINGERS 1,000 ML IV SCH ×3 (02:33→22:16)
[2020-01-01] MEDS: PROMETHAZINE INJ 25 MG/ML (PHENERGAN) AMP IVP PRN ×3 (02:34→23:26)
[2020-01-01] MEDS: fentaNYL INJECTION 100 MCG/2 ML AMP IVP PRN ×9 (02:34→23:27)
[2020-01-01] MEDS: ENOXAPARIN 80 MG/0.8 ML (LOVENOX) SYR SC SCH ×2 (04:07→17:39)
[2020-01-01] MEDS: HYDROCORTISONE 100 MG/2 ML (Solu-CORTEF) VIAL IV SCH ×3 (05:11→21:20)
[2020-01-01] MEDS: inSUlin ASPART (NovoLOG) 1 UNIT/0.01 ML (CHARGE PER UNIT) SC SCH ×4 (05:18→21:14)
--- NOTE | 2020-01-01 07:12 | NUR ---
pt states she is nauseous and the breathing tx makes her more nauseous Addendum: 01/01/20 at 0713 by JANNIE SERNA RT Amended: Links added.
[2020-01-01 08:00] VITALS: BP 113/64
[2020-01-01] MEDS: CIPROFLOXACIN IV 400MG/200ML 200 ML IV SCH ×2 (08:34→20:00)
[2020-01-01] MEDS: PANTOPRAZOLE 40 MG (PROTONIX) VIAL IV SCH (08:36)
[2020-01-01] MEDS: FAMOTIDINE 20MG/2ML IV (PEPCID) IV SCH ×2 (08:36→20:00)
[2020-01-01] MEDS: NICOTINE 21 MG (NICODERM) PATCH TD SCH (08:37)
[2020-01-01] MEDS: NICOTINE PATCH REMOVAL TP SCH (09:02)
[2020-01-01] MEDS: ONDANSETRON 4 MG/2 ML (SDV) Z0FRAN IV PRN ×2 (11:20→19:58)
--- NOTE | 2020-01-01 11:25 | Progress Note - Hospitalist ---
Subjective HPI/CC On Admission Date Seen by Provider: Jan 01, 2020 Time Seen by Provider: 11:19 Pt is a 64yoCF with a PMH of bladder cancer s/p cystectomy, HTN, tobacco abuse, NIDDMII, paroxysmal atrial fibrillation, and multiple abdominal surgeries who presented to the ER due to abdominal pain. She states she has not passed gas or had a BM for the past 3 days. She has had similar pain before but never as severe as this and was associated with her abdominal hernia. She was found to have a SBO on CT and is being admitted for management. She was also found to have a UTI. She has a urostomy so has no symptoms. She reports her pain is improving since she got here. NGT was just placed and XR is pending. Subjective/Events-last exam Pt reports pain improving. Had two small BMs yesterday and today. No flatus today. Tried to sip on coffee this morning but got very nauseated. Objective Exam Vital Signs Vital Signs Date Time Temp Pulse Resp B/P (MAP) Pulse Ox O2 Delivery O2 Flow Rate FiO2 01/01/20 10:36 95 Nasal Cannula 2.00 01/01/20 08:00 36.8 77 18 113/64 (80) Capillary Refill : Less Than 3 Seconds General Appearance: No Apparent Distress, WD/WN Respiratory: Lungs Clear, No Respiratory Distress Cardiovascular: Regular Rate, Rhythm, No Murmur Gastrointestinal: Abnormal Bowel Sounds (quiet), Distended (mild), Tenderness (mild- similar to previous exam) Neurologic/Psychiatric: Alert, Oriented x3, Normal Mood/Affect Results/Procedures Lab Patient resulted labs reviewed. Imaging: Reviewed Imaging Report Assessment/Plan Assessment and Plan Assess & Plan/Chief Complaint SBO Continue decompression with NGT NPO Surgery consulted, appreciate assistance Pain regimen Antiemetics Await bowel function- starting to pass BMs this morning UTI Bladder cancer s/p cystectomy with urostomy Continue Cipro Culture shows klebsiella sensitivie to cipro Atrial Fibrillation HTN Rate controlled Cover stroke ppx with Lovenox Resume home meds when able to take PO NIDDMII BS 135 currently trend SSI Diagnosis/Problems Diagnosis/Problems (1) Small bowel obstruction Status: Acute (2) Urinary tract infection Status: Acute Qualifiers: Urinary tract infection type: site unspecified Hematuria presence: without hematuria Qualified Codes: N39.0 - Urinary tract infection, site not specified (3) Bladder cancer Status: Chronic Qualifiers: Bladder location: unspecified site Qualified Codes: C67.9 - Malignant neoplasm of bladder, unspecified (4) Presence of urostomy Status: Acute (5) Tobacco abuse Status: Acute (6) Non-insulin treated type 2 diabetes mellitus Status: Chronic (7) COPD (chronic obstructive pulmonary disease) with chronic bronchitis Status: Chronic (8) Chronic atrial fibrillation Status: Chronic (9) CAD (coronary artery disease) Status: Chronic Qualifiers: Coronary Disease-Associated Artery/Lesion type: [place] artery [place] vs. transplanted heart: [place] heart Associated angina: without angina Qualified Codes: I25.10 - Atherosclerotic heart disease of [place] coronary artery without angina pectoris (10) HLD (hyperlipidemia) Status: Chronic Qualifiers: Hyperlipidemia type: unspecified Qualified Codes: E78.5 - Hyperlipidemia, unspecified Clinical Quality Measures DVT/VTE Risk/Contraindication: Risk Factor Score Per Nursin RFS Level Per Nursing on Admit: 4+=Very High RUBIO CARVALHO MD Jan 01, 2020 11:25
--- NOTE | 2020-01-01 11:55 | Progress Note - Surgery ---
Subjective Time Seen by a Provider: 10:40 Subjective/Events-last exam Pt seen and examined, states she still has some nausea but no vomiting. Her NGT is clamped and would like some coffee. She states she had 2 small BM's today. Review of Systems General: Fatigue, Malaise Pulmonary: No Dyspnea, No Cough Cardiovascular: No: Chest Pain, Palpitations Gastrointestinal: Nausea, Abdominal Pain; No: Vomiting Objective Exam Vital Signs Date Time Temp Pulse Resp B/P (MAP) Pulse Ox O2 Delivery O2 Flow Rate FiO2 01/01/20 10:36 95 Nasal Cannula 2.00 01/01/20 08:00 93 Room Air 2.00 01/01/20 08:00 36.8 77 18 113/64 (80) 93 Room Air 01/01/20 03:04 36.2 01/01/20 02:28 93 Nasal Cannula 2.00 01/01/20 00:00 36.2 100 18 117/72 (87) 96 Room Air 12/31/19 21:45 94 Nasal Cannula 2.00 12/31/19 20:00 Nasal Cannula 2.00 12/31/19 18:26 93 Nasal Cannula 2.00 12/31/19 16:43 37.0 82 20 111/66 (81) 96 Nasal Cannula 2.00 12/31/19 12:00 36.2 86 18 98/55 (69) 93 Nasal Cannula 2.00 I & O 01/01/20 07:00 Intake Total 2210 ml Output Total 3075 ml Balance -865 ml Capillary Refill : Less Than 3 Seconds General Appearance: No Apparent Distress, WD/WN HEENT: Other (NGT in place) Respiratory: Lungs Clear, Normal Breath Sounds, No Accessory Muscle Use, No Respiratory Distress Cardiovascular: Regular Rate, Rhythm, No Murmur Gastrointestinal: non tender, soft, no organomegaly; No distended Neurologic/Psychiatric: Alert, Oriented x3 Results Lab Laboratory Tests 12/31/19 12:09: Glucometer 101 12/31/19 16:38: Glucometer 90 01/01/20 00:37: Glucometer 102 01/01/20 05:17: Glucometer 107 Microbiology 12/30/19 Urine Culture - Preliminary, Resulted Klebsiella oxytoca Enterococcus faecalis Testing In Progress Assessment/Plan Assessment/Plan Assessment/Plan PSBO Leave NGT clamped and will let her try some coffee. Pt encouraged to ambulate and use IS. If no improvement then may order SBFT tomorrow. Clinical Quality Measures DVT/VTE Risk/Contraindication: Risk Factor Score Per Nursin RFS Level Per Nursing on Admit: 4+=Very High CAPRI LEVINE DO Jan 01, 2020 11:55
[2020-01-01] MEDS: KETOROLAC 15 MG/ML VIAL IVP PRN ×2 (13:35)
[2020-01-01 16:14] VITALS: BP 122/60
[2020-01-01] MEDS: LORazepam INJ 2 MG/ML (ATIVAN) VIAL IVP PRN (23:26)
[2020-01-02] VITALS: BP 118/67
[2020-01-02] MEDS: RT-ALBUTEROL/IPRATROPIUM 3 ML (DUONEB) VIAL INH SCH ×6 (02:30→22:55)
[2020-01-02] MEDS: ONDANSETRON 4 MG/2 ML (SDV) Z0FRAN IV PRN ×4 (02:41→14:42)
[2020-01-02] MEDS: KETOROLAC 15 MG/ML VIAL IVP PRN ×2 (02:41→21:02)
[2020-01-02] MEDS: fentaNYL INJECTION 100 MCG/2 ML AMP IVP PRN ×4 (05:29→18:36)
[2020-01-02] MEDS: ENOXAPARIN 80 MG/0.8 ML (LOVENOX) SYR SC SCH ×2 (05:29→16:39)
[2020-01-02] MEDS: HYDROCORTISONE 100 MG/2 ML (Solu-CORTEF) VIAL IV SCH ×3 (05:36→21:02)
[2020-01-02] MEDS: inSUlin ASPART (NovoLOG) 1 UNIT/0.01 ML (CHARGE PER UNIT) SC SCH ×4 (05:40→21:03)
[2020-01-02 08:00] VITALS: BP 113/63
[2020-01-02] MEDS: CIPROFLOXACIN IV 400MG/200ML 200 ML IV SCH ×2 (08:06→21:02)
[2020-01-02] MEDS: NICOTINE 21 MG (NICODERM) PATCH TD SCH (08:06)
[2020-01-02] MEDS: FAMOTIDINE 20MG/2ML IV (PEPCID) IV SCH ×2 (08:06→21:02)
[2020-01-02] MEDS: NICOTINE PATCH REMOVAL TP SCH (08:06)
[2020-01-02] MEDS: PANTOPRAZOLE 40 MG (PROTONIX) VIAL IV SCH (08:06)
[2020-01-02] MEDS: LACTATED RINGERS 1,000 ML IV SCH ×2 (08:08→16:39)
--- NOTE | 2020-01-02 09:30 | NUR ---
NG tube clamped at this time and patient given small cup of coffee per Dr. Obando's orders. Patient tolerating well.
--- NOTE | 2020-01-02 10:23 | Progress Note - Surgery ---
Subjective Time Seen by a Provider: 09:30 Subjective/Events-last exam Pt seen and examined, states she still has nausea but no emesis. She wants to try coffee again and is asking about going home. I told her she still has NGT and can't eat; therefore, she can't go home. Review of Systems General: Fatigue, Malaise Pulmonary: Dyspnea; No Cough Cardiovascular: No: Chest Pain, Palpitations Gastrointestinal: Nausea, Abdominal Pain; No: Vomiting Objective Exam Vital Signs Date Time Temp Pulse Resp B/P (MAP) Pulse Ox O2 Delivery O2 Flow Rate FiO2 01/02/20 10:06 94 Nasal Cannula 2.00 01/02/20 08:00 93 Room Air 2.00 01/02/20 08:00 36.9 85 18 113/63 (80) 94 Room Air 01/02/20 06:28 94 Nasal Cannula 2.00 01/02/20 02:30 94 Nasal Cannula 2.00 01/02/20 00:00 36.4 83 20 118/67 (84) 93 Nasal Cannula 2.00 2.00 01/01/20 20:00 93 Room Air 2.00 01/01/20 18:35 96 Nasal Cannula 2.00 01/01/20 16:14 37.2 71 22 122/60 (80) 97 Room Air 01/01/20 10:36 95 Nasal Cannula 2.00 I & O 01/02/20 07:00 Intake Total 1200 ml Output Total 2800 ml Balance -1600 ml Capillary Refill : Less Than 3 Seconds General Appearance: No Apparent Distress, Chronically ill HEENT: PERRL/EOMI; No Scleral Icterus (L), No Scleral Icterus (R); Other (NGT in place) Respiratory: No Accessory Muscle Use, No Respiratory Distress, Rhonci Cardiovascular: Regular Rate, Rhythm, No Murmur Gastrointestinal: non tender, soft, no organomegaly; No distended Extremity: No Calf Tenderness, No Pedal Edema Neurologic/Psychiatric: Alert, Oriented x3 Results Lab Laboratory Tests 01/01/20 11:38: Glucometer 97 01/01/20 15:57: Glucometer 95 01/01/20 21:19: Glucometer 140H 01/02/20 05:40: Glucometer 95 Microbiology 12/30/19 Urine Culture - Final, Complete Klebsiella oxytoca Enterococcus faecalis Assessment/Plan Assessment/Plan Assessment/Plan PSBO Leave NGT clamped and will let her try some coffee again; if she is unable to tolerate it, will order SBFT. Pt encouraged to ambulate and use IS. She is on Zofran and Phenergan and neither is helping. Clinical Quality Measures DVT/VTE Risk/Contraindication: Risk Factor Score Per Nursin RFS Level Per Nursing on Admit: 4+=Very High CAPRI LEVINE DO Jan 02, 2020 10:23
--- NOTE | 2020-01-02 11:59 | Progress Note - Hospitalist ---
Subjective HPI/CC On Admission Date Seen by Provider: Jan 02, 2020 Time Seen by Provider: 11:56 Pt is a 64yoCF with a PMH of bladder cancer s/p cystectomy, HTN, tobacco abuse, NIDDMII, paroxysmal atrial fibrillation, and multiple abdominal surgeries who presented to the ER due to abdominal pain. She states she has not passed gas or had a BM for the past 3 days. She has had similar pain before but never as severe as this and was associated with her abdominal hernia. She was found to have a SBO on CT and is being admitted for management. She was also found to have a UTI. She has a urostomy so has no symptoms. She reports her pain is improving since she got here. NGT was just placed and XR is pending. Subjective/Events-last exam Pt reports improving today. Tolerated sips of coffee. NGT currently clamped without nausea. Passed gas earlier today as well. Objective Exam Vital Signs Vital Signs Date Time Temp Pulse Resp B/P (MAP) Pulse Ox O2 Delivery O2 Flow Rate FiO2 01/02/20 10:06 94 Nasal Cannula 2.00 01/02/20 08:00 36.9 85 18 113/63 (80) Capillary Refill : Less Than 3 Seconds General Appearance: No Apparent Distress, Chronically ill HEENT: Other (NGT in place) Respiratory: Lungs Clear, No Accessory Muscle Use, Other (on NC) Cardiovascular: Regular Rate, Rhythm, No Murmur Gastrointestinal: Normal Bowel Sounds, Soft, Tenderness (improving) Neurologic/Psychiatric: Alert, Oriented x3 Results/Procedures Lab Patient resulted labs reviewed. Imaging: Reviewed Imaging Report Assessment/Plan Assessment and Plan Assess & Plan/Chief Complaint SBO NGT currently clamped Continue with sips as tolerated Surgery consulted, appreciate assistance Pain regimen Antiemetics BM yesterday and flatus today UTI Bladder cancer s/p cystectomy with urostomy Continue Cipro Culture shows klebsiella sensitivie to cipro Atrial Fibrillation HTN Rate controlled Cover stroke ppx with Lovenox Resume home meds when able to take PO NIDDMII BS 135 currently trend SSI Diagnosis/Problems Diagnosis/Problems (1) Small bowel obstruction Status: Acute (2) Urinary tract infection Status: Acute Qualifiers: Urinary tract infection type: site unspecified Hematuria presence: without hematuria Qualified Codes: N39.0 - Urinary tract infection, site not specified (3) Bladder cancer Status: Chronic Qualifiers: Bladder location: unspecified site Qualified Codes: C67.9 - Malignant neoplasm of bladder, unspecified (4) Presence of urostomy Status: Acute (5) Tobacco abuse Status: Acute (6) Non-insulin treated type 2 diabetes mellitus Status: Chronic (7) COPD (chronic obstructive pulmonary disease) with chronic bronchitis Status: Chronic (8) Chronic atrial fibrillation Status: Chronic (9) CAD (coronary artery disease) Status: Chronic Qualifiers: Coronary Disease-Associated Artery/Lesion type: [place] artery [place] vs. transplanted heart: [place] heart Associated angina: without angina Qualified Codes: I25.10 - Atherosclerotic heart disease of [place] coronary artery without angina pectoris (10) HLD (hyperlipidemia) Status: Chronic Qualifiers: Hyperlipidemia type: unspecified Qualified Codes: E78.5 - Hyperlipidemia, unspecified Clinical Quality Measures DVT/VTE Risk/Contraindication: Risk Factor Score Per Nursin RFS Level Per Nursing on Admit: 4+=Very High RUBIO CARVALHO MD Jan 02, 2020 11:59
--- NOTE | 2020-01-02 13:55 | NUR ---
Patient c/o nausea, stomach pain. PRN fentany given. Patient NG hooked back up to intermittent suction and new verbal orders for small bowel follow through obtained from Dr. Obando.
[2020-01-02] MEDS ORDERED: DIATRIZOATE MEGLUM/SODIUM 37% 120 ML (GASTROGRAFIN) NG ONE (15:00)
[2020-01-02 16:15] VITALS: BP 125/58
--- NOTE | 2020-01-02 16:28 | Diagnostic Imaging Report ---
CLINICAL INDICATION: Partial small bowel obstruction seen on previous CT. Patient was nauseated after drinking coffee this morning. EXAM: Small bowel follow-through exam performed with 120 mL of Gastrografin injected through the indwelling nasogastric tube. Multiple serial x-ray images of the abdomen were obtained. COMPARISON: X-ray of the abdomen dated 12/31/2019. 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 There is dilated loops of intestine overlying the mid abdominal region. Dobbhoff tube is noted in stable position. There are degenerative spurs involving the visualized lower thoracic and lumbar spine. Left hip arthroplasty is seen. Enteric contrast is seen precipitously extending from the distal esophagus into the small bowel and jejunum by 15 minutes. 30 minutes shows contrast through the small bowel and into the proximal right colon region. 45 minute imaging confirms contrast within the right colon and now into the transverse colon region. IMPRESSION: There is no evidence of significant intestinal obstruction seen on this small bowel follow-through exam. Dictated by: Dictated on workstation # [id number]
[2020-01-02] MEDS: PROMETHAZINE INJ 25 MG/ML (PHENERGAN) AMP IVP PRN (21:02)
[2020-01-02] MEDS: LORazepam INJ 2 MG/ML (ATIVAN) VIAL IVP PRN (22:47)
[2020-01-02 23:20] VITALS: BP 104/66
[2020-01-03] MEDS: RT-ALBUTEROL/IPRATROPIUM 3 ML (DUONEB) VIAL INH SCH ×3 (02:09→14:11)
[2020-01-03] MEDS: fentaNYL INJECTION 100 MCG/2 ML AMP IVP PRN ×5 (03:13→14:21)
[2020-01-03] MEDS: KETOROLAC 15 MG/ML VIAL IVP PRN (03:58)
[2020-01-03] MEDS: LACTATED RINGERS 1,000 ML IV SCH ×3 (05:42→17:22)
[2020-01-03] MEDS: ENOXAPARIN 80 MG/0.8 ML (LOVENOX) SYR SC SCH ×2 (06:00→17:17)
[2020-01-03] MEDS: HYDROCORTISONE 100 MG/2 ML (Solu-CORTEF) VIAL IV SCH ×3 (06:00→21:24)
[2020-01-03] MEDS: inSUlin ASPART (NovoLOG) 1 UNIT/0.01 ML (CHARGE PER UNIT) SC SCH ×4 (06:03→20:07)
[2020-01-03 06:12] LABS: HEMOGLOBIN 10.9 g/dL (11.5-16.0); MEAN PLATELET VOLUME 10.1 fL (9.0-12.2)
[2020-01-03] MEDS: ONDANSETRON 4 MG/2 ML (SDV) Z0FRAN IV PRN (06:17)
[2020-01-03 08:00] VITALS: BP 110/61
[2020-01-03] MEDS: NICOTINE 21 MG (NICODERM) PATCH TD SCH (08:06)
[2020-01-03] MEDS: CIPROFLOXACIN IV 400MG/200ML 200 ML IV SCH (08:08)
[2020-01-03] MEDS: PANTOPRAZOLE 40 MG (PROTONIX) VIAL IV SCH (08:08)
[2020-01-03] MEDS: FAMOTIDINE 20MG/2ML IV (PEPCID) IV SCH ×2 (08:08→20:07)
[2020-01-03] MEDS: NICOTINE PATCH REMOVAL TP SCH (09:00)
--- NOTE | 2020-01-03 10:07 | Physician Query Clarification ---
PQ-Link Infection to Dev/Proc Admission/Discharge Admission Date: Dec 30, 2019 at 14:29 Discharge Date: Dr. Mae, The medical record reflects the following clinical scenario: History/Risk Factors: History of bladder cancer with radical cystectomy Suprapubic catheter Clinical Findings: Culture: >100,000/ML Klebsiella oxytoca and 60,000 cfu/ml Enterococcus faecalis. Treatment:IV Rocephin Question: Can you specify if the UTI is due to/associated with Suprapubic Catheter and what organisms should be coded? Please document a response in Progress Note or Discharge Summary. 1. Yes - UTI is due to/associated with suprapubic catheter. 2. No - UTI is not due to/associated with suprapubic catheter. 3. Other, with explanation of the clinical findings. 4. Clinically undetermined, no explanation for the clinical findings. PHYSICIAN RESPONSE Specify if infection: 1 Please remember a lack of response to the above will prompt a phone page by [facility]/Coding staff. In responding to this query, please exercise your independent professional judgment. The purpose of this communication is to more accurately reflect the complexity of your patients condition. The fact that a question is asked does not imply that any particular answer is desired or expected. Thank you for your timely response to this clarification. Requestors name: Danielle Mason [facility] Phone # ext [phone] or [phone] THIS PHYSICIAN QUERY FORM IS A PERMANENT PART OF THE MEDICAL RECORD DAINELLE MASON Jan 03, 2020 10:07 RUBIO MAE MD Jan 03, 2020 20:39
--- NOTE | 2020-01-03 11:03 | NUR ---
CM/SS visited with the patient for discharge planning. The patient was in bed watching tv at time of visit. CM/SS asked how she was doing today and she stated "fine, I'm ready to get out of here and go home". Home: The patient lives at home with her significant other. Home Health: The patient is set up with services through [facility]. Will need need home health orders at time of discharge. Equipment: The patient is a client of [email or web address] [facility]. She wears oxygen at baseline. The patient reports that she wears her oxygen at night and only in the day when she thinks she needs it. She has a [id number], wheelchair, bed side commode, and hospital bed. Caregivers: The patient has 2 caregivers. One caregiver works the weekdays and the other works the weekends. Food: Patient receives he food from [employer]. CM/SS will continue to follow.
--- NOTE | 2020-01-03 16:01 | Progress Note - Hospitalist ---
Subjective HPI/CC On Admission Date Seen by Provider: Jan 03, 2020 Time Seen by Provider: 10:35 Pt is a 64yoCF with a PMH of bladder cancer s/p cystectomy, HTN, tobacco abuse, NIDDMII, paroxysmal atrial fibrillation, and multiple abdominal surgeries who presented to the ER due to abdominal pain. She states she has not passed gas or had a BM for the past 3 days. She has had similar pain before but never as severe as this and was associated with her abdominal hernia. She was found to have a SBO on CT and is being admitted for management. She was also found to have a UTI. She has a urostomy so has no symptoms. She reports her pain is improving since she got here. NGT was just placed and XR is pending. Subjective/Events-last exam she reports passing gas and having bowel movements. She is feeling hungry this morning. She like to advance her diet. She denies any nausea or vomiting. Objective Exam Vital Signs Vital Signs Date Time Temp Pulse Resp B/P (MAP) Pulse Ox O2 Delivery O2 Flow Rate FiO2 01/03/20 14:11 96 Nasal Cannula 2.00 01/03/20 08:00 36.3 85 18 110/61 (77) Capillary Refill : Less Than 3 Seconds General Appearance: No Apparent Distress, WD/WN HEENT: Other (NG tube in place) Respiratory: Lungs Clear, Normal Breath Sounds, No Respiratory Distress Cardiovascular: Regular Rate, Rhythm, No Edema, No Murmur Gastrointestinal: Non Tender, Soft, Abnormal Bowel Sounds (hypoactive) Extremity: Normal Inspection, Non Tender, No Pedal Edema Neurologic/Psychiatric: Alert, Oriented x3, No Motor/Sensory Deficits, Normal Mood/Affect Skin: Normal Color, Warm/Dry Results/Procedures Lab Laboratory Tests 01/03/20 05:47 Patient resulted labs reviewed. Imaging: Reviewed Imaging Report Assessment/Plan Assessment and Plan Assess & Plan/Chief Complaint SBO NGT currently clamped Continue with sips as tolerated Surgery consulted, appreciate assistance Pain regimen Antiemetics UTI Bladder cancer s/p cystectomy with urostomy transition to Levaquin Culture shows klebsiella and enterococcus susceptible to Levaquin Atrial Fibrillation HTN Rate controlled Cover stroke ppx with Lovenox Resume home meds when able to take PO NIDDMII SSI Diagnosis/Problems Diagnosis/Problems (1) Small bowel obstruction Status: Acute (2) Urinary tract infection Status: Acute Qualifiers: Urinary tract infection type: site unspecified Hematuria presence: without hematuria Qualified Codes: N39.0 - Urinary tract infection, site not specified (3) Bladder cancer Status: Chronic Qualifiers: Bladder location: unspecified site Qualified Codes: C67.9 - Malignant neoplasm of bladder, unspecified (4) Chronic atrial fibrillation Status: Chronic (5) Non-insulin treated type 2 diabetes mellitus Status: Chronic Clinical Quality Measures DVT/VTE Risk/Contraindication: Risk Factor Score Per Nursin RFS Level Per Nursing on Admit: 4+=Very High VICKIE CAMEJO MD Jan 03, 2020 16:01
[2020-01-03 16:10] VITALS: BP 144/63
[2020-01-03] MEDS: HYDROcodone/APAP 7.5 MG/325 MG (LORTAB, LORCET PLUS) TABLET PO PRN (16:22)
--- NOTE | 2020-01-03 16:53 | Progress Note ---
Subjective Date Seen by a Provider: Jan 03, 2020 Time Seen by a Provider: 16:30 Subjective/Events-last exam doing better. mild nausea however improving. no vomiting. having BM's. no abd distention. contrast thru colon in 45min. Objective Exam Vital Signs Date Time Temp Pulse Resp B/P (MAP) Pulse Ox O2 Delivery O2 Flow Rate FiO2 01/03/20 16:10 36.4 60 20 144/63 (90) 96 Nasal Cannula 2.00 01/03/20 14:11 96 Nasal Cannula 2.00 01/03/20 08:00 36.3 85 18 110/61 (77) 95 Nasal Cannula 2.00 01/03/20 08:00 Nasal Cannula 2.00 01/03/20 06:45 93 Nasal Cannula 2.00 01/02/20 23:20 36.7 78 22 104/66 (79) 95 Nasal Cannula 2.00 01/02/20 22:56 95 Nasal Cannula 2.00 01/02/20 20:40 Nasal Cannula 2.00 01/02/20 18:27 94 Nasal Cannula 2.00 I & O 01/03/20 07:00 Intake Total 1240 ml Output Total 2050 ml Balance -810 ml Capillary Refill : Less Than 3 Seconds General Appearance: No Apparent Distress HEENT: PERRL/EOMI Neck: Full Range of Motion Respiratory: Chest Non Tender, Decreased Breath Sounds, Rhonci Cardiovascular: Regular Rate, Rhythm Gastrointestinal: normal bowel sounds, non tender, soft Extremity: Normal Capillary Refill Neurologic/Psychiatric: Alert, Oriented x3 Skin: Normal Color Lymphatic: No Adenopathy Results Lab Laboratory Tests 01/02/20 19:49: Glucometer 103 01/03/20 05:47: White Blood Count 5.0, Red Blood Count 3.85, Hemoglobin 10.9#L, Hematocrit 35, Mean Corpuscular Volume 90, Mean Corpuscular Hemoglobin 28, Mean Corpuscular Hemoglobin Concent 32, Red Cell Distribution Width 16.1H, Platelet Count 231, Mean Platelet Volume 10.1, Creatinine 0.47L 01/03/20 06:03: Glucometer 96 01/03/20 11:17: Glucometer 101 01/03/20 15:19: Glucometer 104 Microbiology 12/30/19 Urine Culture - Final, Complete Klebsiella oxytoca Enterococcus faecalis Assessment/Plan Assessment/Plan Assess & Plan/Chief Complaint ileus vs. PSBO/ improving with bowel fxn. increase diet as tolerated. Clinical Quality Measures DVT/VTE Risk/Contraindication: Risk Factor Score Per Nursin RFS Level Per Nursing on Admit: 4+=Very High PETAR NORMAN MD Jan 03, 2020 16:53
[2020-01-03] MEDS: PROMETHAZINE INJ 25 MG/ML (PHENERGAN) AMP IVP PRN (17:14)
--- NOTE | 2020-01-03 18:31 | NUR ---
DR NORMAN D/C'D LR, NG TUBE AND STARTED HER ON DYS 3 DIET. NG TUBE TAKEN OUT BY THIS RN. PT TOLERATED WELL. DR NORMAN ALSO REPORTED PT WILL PROB D/C IN AM AND HE LEFT SCRIPTS IN CHART.
[2020-01-03] MEDS ORDERED: LEVOFLOXACIN 750 MG TAB (LEVAQUIN) PO NR (21:00)
[2020-01-03] MEDS: LORazepam INJ 2 MG/ML (ATIVAN) VIAL IVP PRN (23:22)
[2020-01-03 23:30] VITALS: BP 124/60
[2020-01-04] MEDS: HYDROcodone/APAP 7.5 MG/325 MG (LORTAB, LORCET PLUS) TABLET PO PRN ×2 (00:22→07:29)
[2020-01-04] MEDS: RT-ALBUTEROL/IPRATROPIUM 3 ML (DUONEB) VIAL INH SCH ×2 (00:55→07:40)
[2020-01-04] MEDS: ENOXAPARIN 80 MG/0.8 ML (LOVENOX) SYR SC SCH (05:08)
[2020-01-04] MEDS: HYDROCORTISONE 100 MG/2 ML (Solu-CORTEF) VIAL IV SCH (05:08)
[2020-01-04] MEDS: inSUlin ASPART (NovoLOG) 1 UNIT/0.01 ML (CHARGE PER UNIT) SC SCH (05:08)
[2020-01-04] MEDS: NICOTINE PATCH REMOVAL TP SCH (07:29)
[2020-01-04] MEDS: PANTOPRAZOLE 40 MG (PROTONIX) VIAL IV SCH (07:30)
[2020-01-04] MEDS: NICOTINE 21 MG (NICODERM) PATCH TD SCH (07:30)
[2020-01-04] MEDS: FAMOTIDINE 20MG/2ML IV (PEPCID) IV SCH (07:30)
[2020-01-04 08:00] VITALS: BP 139/65
[2020-01-04] MEDS ORDERED: FLUDROCORTISONE 0.1 MG (FLORINEF) TAB PO SCH (08:15)
[2020-01-04] MEDS ORDERED: PRIMIDONE 250MG (MYSOLINE) TAB PO SCH (08:15)
[2020-01-04] MEDS ORDERED: PANTOPRAZOLE 40 MG (PROTONIX) TAB PO SCH (09:00)
[2020-01-04] MEDS ORDERED: predniSONE 5 MG TAB PO SCH (09:00)
[2020-01-04] MEDS ORDERED: NON-FORMULARY MEDICATION 1 EA EA (Fluticasone/Umeclidin/Vilanter (Trelegy Ellipta 100-62.5 IH SCH (09:00)
[2020-01-04] MEDS ORDERED: clonazePAM 1 MG (KlonoPIN) TAB PO SCH (09:00)
[2020-01-04] MEDS ORDERED: DOCUSATE SODIUM 100 MG (COLACE) CAP PO SCH (09:00)
[2020-01-04] MEDS ORDERED: SERTRALINE 100 MG (ZOLOFT) TAB PO SCH (09:00)
[2020-01-04] MEDS ORDERED: BACLOFEN 10 MG (LIORESAL) TAB PO SCH (09:00)
[2020-01-04] MEDS ORDERED: DIGOXIN 0.25 MG (LANOXIN) TAB PO SCH (09:00)
[2020-01-04] MEDS ORDERED: GABAPENTIN 400 MG (NEURONTIN) CAP PO SCH ×2 (09:00→18:00)
[2020-01-04] MEDS ORDERED: LORATADINE (CLARITIN) 10 MG TAB PO SCH (09:00)
[2020-01-04] MEDS ORDERED: APIXABAN 5 MG (ELIQUIS) TABLET PO SCH (09:00)
--- NOTE | 2020-01-04 09:29 | NUR ---
RODOLFO/CIRA finalized discharge. Plan: Patient will return home continuing with [facility]. RODOLFO/CIRA reached out to attending physician to notify that the patient needed home health orders and not home care orders. No response at this time. RODOLFO/CIRA contacted [facility] and spoke with Melania to inform her of not having orders. She states that she will contact Dr. Griffin's office to get orders. No further needs at this time.
[2020-01-04] MEDS ORDERED: AMITRIPTYLINE 50 MG (ELAVIL) TAB PO SCH (21:00)
[2020-01-04] MEDS ORDERED: traZODone 100 MG (DESYREL) TAB PO SCH (21:00)
[2020-01-04] MEDS ORDERED: LEVOFLOXACIN 750 MG TAB (LEVAQUIN) PO SCH (21:00)
[2020-01-04] MEDS ORDERED: SIMvastatin 20 MG (ZOCOR) TAB PO SCH (21:00)
[2020-01-04] MEDS ORDERED: MONTELUKAST 10 MG (SINGULAIR) TAB PO SCH (21:00)
[2020-01-04] MEDS ORDERED: MEMANTINE 10 MG (NAMENDA) TABLET PO SCH (21:00)
[2020-01-04] MEDS ORDERED: DONEPEZIL 10 MG (ARICEPT) TAB PO SCH (21:00)
[2020-01-04] MEDS ORDERED: rOPINIRole 1 MG (REQUIP) TABLET PO SCH (21:00)
[2020-01-04] MEDS ORDERED: MIRTAZAPINE 15 MG (REMERON) TAB PO SCH (21:00)
== END 2020-01-04 09:20 | disposition home or self-care (01) | DRG 389 ==
LOC: EDUNIT# 11:47 → ER 11:48 → 4TH 14:29
PROVIDERS: ADMIT Family Medicine; ATTEND Family Medicine
PROC: 0D9670Z Drainage of Stomach with Drainage Device, Via Natural or Artificial Opening (ICD-10-PCS; principal; 2019-12-30)
DX: K56.699 Other intestinal obstruction unspecified as to partial versus complete obstruction (principal); T83.518A Infection and inflammatory reaction due to other urinary catheter, initial encounter; N39.0 Urinary tract infection, site not specified; E86.0 Dehydration; K59.00 Constipation, unspecified; J43.9 Emphysema, unspecified; I48.0 Paroxysmal atrial fibrillation; E78.00 Pure hypercholesterolemia, unspecified; E78.5 Hyperlipidemia, unspecified; F17.210 Nicotine dependence, cigarettes, uncomplicated; I25.10 Atherosclerotic heart disease of native coronary artery without angina pectoris; I10 Essential (primary) hypertension; E11.51 Type 2 diabetes mellitus with diabetic peripheral angiopathy without gangrene; E11.40 Type 2 diabetes mellitus with diabetic neuropathy, unspecified; E03.9 Hypothyroidism, unspecified; K21.9 Gastro-esophageal reflux disease without esophagitis; M19.91 Primary osteoarthritis, unspecified site; F03.90 Unspecified dementia, unspecified severity, without behavioral disturbance, psychotic disturbance, mood disturbance, and anxiety; G43.909 Migraine, unspecified, not intractable, without status migrainosus; L40.9 Psoriasis, unspecified; F41.9 Anxiety disorder, unspecified; Z96.642 Presence of left artificial hip joint; F32.9 Major depressive disorder, single episode, unspecified; Z85.51 Personal history of malignant neoplasm of bladder; Z90.6 Acquired absence of other parts of urinary tract; Z93.6 Other artificial openings of urinary tract status
CPT/HCPCS: 36415; 71045; 74019; 74177; 74250; 80053; 81000; 82565; 82962; 85025; 85027; 86141; 87077; 87088; 87186; 94640; 94760

== ENCOUNTER → 2020-02-26 | Outpatient (CLI) | payer MEDICARE, MEDICAID ==
[~2020-02-26] MED LIST changes: -ALEN70TA5 PO; +ALEN70TA69 PO; +AMIT50TA3 PO; +ASCO500C17 PO; +CHOL10002 PO; +CYAN-41 PO; +DIGO250T3 PO; +DILT-109 PO; -DILT240C35 PO; +DOCU100T2 PO; +EREN70AU; +L.AC1CAP6 PO; +NITR0.4T39 SL
== END ==
LOC: LAB 15:35
PROVIDERS: ATTEND Physician Assistant
DX: R10.32 Left lower quadrant pain (principal)
CPT/HCPCS: 87015; 87045; 87046; 87899

== ENCOUNTER → 2020-02-29 | Outpatient (CLI) | payer MEDICARE, MEDICAID ==
[~2020-02-29] MED LIST changes: +CATHETER FLUSH 10 ML SYR IV PRN; +HOLD METFORMIN - RECEIVED CONTRAST 20 ML VIAL IV SCH; +IOHEXOL 350 MG/ML 100 ML (OMNIPAQUE 350) VIAL IV ONE; +NS 100 ML (IVPB) BAG IV ONE
[2020-02-29 09:35] LABS: CREATININE SERUM 0.57 MG/DL (0.60-1.30); GFR ESTIMATED > 60
[2020-02-29 09:36] LABS: BUN/CREATININE RATIO 16
--- NOTE | 2020-02-29 10:24 | Diagnostic Imaging Report ---
PROCEDURE: CT abdomen and pelvis with and without contrast. TECHNIQUE: Precontrast acquisitions were acquired through the abdomen and pelvis. Multiple contiguous axial images were obtained through the abdomen and pelvis after the administration of intravenous contrast. Auto Exposure Controls were utilized during the CT exam to meet ALARA standards for radiation dose reduction. INDICATION: Left lower quadrant abdominal pain. COMPARISON: 12/30/2019 FINDINGS: Included portions of the lung bases show minimal left basilar atelectasis. Heart size is mildly prominent. CT ABDOMEN: Patient is status post previous bladder resection with ureteral diversion and ileal conduit. Ostomy site is identified within the right lower abdominal quadrant. There is no evidence of parastomal hernia. Small bowel loops are nondistended. Normal appendix cannot be adequately identified, but there is no pericecal inflammation. Kidneys, adrenal glands, spleen, pancreas and liver have a normal CT appearance. There is no loculated fluid collection, free fluid or free air within the abdomen. No abnormal mesenteric or retroperitoneal adenopathy is seen. Osseous structures show no acute abnormalities. There is advanced diffuse calcified aortic arterial atherosclerosis. CT PELVIS: Pelvis is moderately partially obscured secondary to beam hardening artifact from left hip prosthesis. Again, the urinary bladder is surgically absent. There is no loculated fluid collection, free fluid or free air within the pelvis. No abnormal lymph nodes are identified. Osseous structures show no acute abnormalities. IMPRESSION: 1. Expected postsurgical changes of previous bladder resection with ureteral diversion and ileal conduit formation. 2. Otherwise, unremarkable CT of the abdomen and pelvis. Dictated by: Dictated on workstation # [id number]
== END ==
LOC: RAD 08:59
PROVIDERS: ATTEND Surgery
DX: R10.32 Left lower quadrant pain (principal); Z98.890 Other specified postprocedural states; Z96.642 Presence of left artificial hip joint
CPT/HCPCS: 36415; 74178; 82565; 84520

== ENCOUNTER 2020-04-24 14:37 | Outpatient (RCR) | payer MEDICARE, MEDICAID ==
[~2020-04-24 14:37] MED LIST changes: -ALEN70TA69 PO; +ALEN70TA80 PO; -CATHETER FLUSH 10 ML SYR IV PRN; +CHOL-34 PO; -CHOL10002 PO; +ESCI-2 PO; -ESCI10TA55 PO; -FOLI1TAB24 PO; +FOLI1TAB33 PO; -HOLD METFORMIN - RECEIVED CONTRAST 20 ML VIAL IV SCH; -IOHEXOL 350 MG/ML 100 ML (OMNIPAQUE 350) VIAL IV ONE; -METO10TA3 PO; -MONT10TA26 PO; +MONT10TA32 PO; +MTC10T PO; -NS 100 ML (IVPB) BAG IV ONE; +SERT-413 PO; +SERT-414 PO; -SERT100T8 PO; -SERT50TA9 PO; +TIZA-169 PO; -TIZA2TAB7 PO
[2020-04-26] MEDS ORDERED: MECL-149 PO (14:15)
[2020-05-05] MEDS ORDERED: NITR100C10 PO (11:53)
[2020-05-05] MEDS ORDERED: DENO60DI INJ (11:53)
[2020-05-05] MEDS ORDERED: OMEP20CA18 PO (11:53)
[2020-05-05] MEDS ORDERED: PRD10T PO (11:53)
[2020-05-05] MEDS ORDERED: CEFD300C3 PO (12:29)
[2020-06-26] MEDS ORDERED: ONDA4TAB11 PO (23:58)
== END 2020-07-23 | disposition home or self-care (01) ==
LOC: LAB 14:37
PROVIDERS: ATTEND Family Medicine
DX: K52.9 Noninfective gastroenteritis and colitis, unspecified (principal)
CPT/HCPCS: 87015; 87045; 87046; 87324; 87449; 87899

== ENCOUNTER → 2020-04-26 | Emergency (ER) | payer MEDICARE, MEDICAID ==
[~2020-04-26] VITALS: Ht 160 cm; Wt 69.4 kg
[~2020-04-26] MED LIST changes: -CHOL-34 PO; +CHOL10002 PO; -ESCI-2 PO; +ESCI10TA64 PO; +HYDROcodone/APAP 5 MG/325 MG (LORTAB) TAB PO ONE; +MECL-149 PO; +MECLIZINE 25 MG (ANTIVERT) TAB PO ONE; +METO10TA3 PO; -MONT10TA32 PO; +MONT10TA97 PO; -MTC10T PO; +NS IV 1000 ML 1,000 ML IV SCH; -SERT-413 PO; -SERT-414 PO; +SERT100T8 PO; +SERT50TA9 PO
[2020-04-26 11:36] VITALS: BP_SYST 103; BP_DIAS 64; BP_DIAS 68; BP_DIAS 73
[2020-04-26 11:37] LABS: BASOPHILS % (AUTO) 1 % (0-10); EOSINOPHILS # (AUTO) 0.3 10^3/uL (0.0-0.3); EOSINOPHILS % (AUTO) 5 % (0-10); HEMATOCRIT 45 % (35-52); HEMOGLOBIN 13.9 g/dL (11.5-16.0); LYMPHOCYTES # (AUTO) 1.8 10^3/uL (1.0-4.0); LYMPHOCYTES % (AUTO) 34 % (12-44); MEAN CORPUSCULAR HEMOGLOBIN 29 pg (25-34); MEAN CORPUSCULAR HGB CONC 31 g/dL (32-36); MEAN CORPUSCULAR VOLUME 92 fL (80-99); MEAN PLATELET VOLUME 9.7 fL (9.0-12.2); MONOCYTES # (AUTO) 0.6 10^3/uL (0.0-1.0); MONOCYTES % (AUTO) 11 % (0-12); NEUTROPHILS # (AUTO) 2.5 10^3/uL (1.8-7.8); NEUTROPHILS % (AUTO) 49 % (42-75); PLATELET COUNT 226 10^3/uL (130-400); WHITE BLOOD COUNT 5.2 10^3/uL (4.3-11.0)
[2020-04-26 11:47] LABS: CHLORIDE 106 MMOL/L (98-107); POTASSIUM 3.5 MMOL/L (3.6-5.0); SODIUM 141 MMOL/L (135-145)
[2020-04-26 11:48] LABS: CALCIUM 9.2 MG/DL (8.5-10.1)
[2020-04-26 11:49] LABS: GLUCOSE 100 MG/DL (70-105)
[2020-04-26 11:50] LABS: CARBON DIOXIDE 26 MMOL/L (21-32)
[2020-04-26 11:52] LABS: CREATININE SERUM 0.59 MG/DL (0.60-1.30); GFR ESTIMATED > 60
[2020-04-26 11:53] LABS: BUN/CREATININE RATIO 22
--- NOTE | 2020-04-26 13:00 | ED General ---
General Chief Complaint: Dizziness/Syncope Stated Complaint: DIZZINESS, HIGH BLOOD SUGAR 172, HTN Source of Information: Patient Exam Limitations: No Limitations History of Present Illness Date Seen by Provider: Apr 26, 2020 Time Seen by Provider: 10:30 Initial Comments Patient is a 64-year-old female who presents to the emergency department today with a chief complaint of feeling dizzy. Patient states that she woke up this morning and felt weak and dizzy after having had diarrhea for the last 3 weeks. She was coming into the hospital in order to bring a stool sample today at the request of her primary care physician and states that she was stumbling into [place]etts and falling "all over the place". Patient states that she saw her primary care physician for her diarrhea and was told to take Imodium. Patient states her first normal bowel movement was yesterday after taking 3 bottles of the Imodium. Patient states that she has been a little bit short of breath but she is always short of breath. She denies any chest pain she denies any abdominal pain. She denies any black or bloody stools. She denies any problems with urination, she has a urostomy because her bladder "does not work".. She denies any fevers or chills. She denies any sinus pressure pain or congestion. She has had a little bit of green rhinorrhea. Patient has a 2 page list of medications that she states she is compliant with she has not missed or skipped any medications at all. Patient tells me this is about her third episode of this "dizziness". She states that nothing makes it any better or any worse. She states she is dizzy even sitting still with her head still in the bed. She states she had this about a week or 2 ago and all she did was "go to bed and rest" and the dizziness went away. She denies any associated headache, vision changes, unilateral numbness weakness or tingling. She has had prior stroke and this is not like that. She has had TIAs. All other review of systems reviewed and negative except as stated. Timing/Duration: 4-6 Hours Severity: Moderate Allergies and Home Medications Allergies Coded Allergies: bacitracin (Verified Allergy, Intermediate, "I BREAK OUT IN A RASH ALL OVER.", 04/20/19) neomycin (Verified Allergy, Intermediate, "I BREAK OUT IN A RASH ALL OVER.", 04/20/19) polymyxin B (Verified Allergy, Intermediate, "I BREAK OUT IN A RASH ALL OVER.", 04/20/19) ibuprofen (Verified Allergy, Mild, RASH, 04/20/19) naproxen (Verified Allergy, Mild, RASH, 04/20/19) Home Medications Albuterol Sulfate 2.5 Mg/3 Ml Vial.neb, 2.5 MG NEB Q6H PRN for SHORTNESS OF BREATH, (Reported) Albuterol Sulfate 18 Gm Hfa.aer.ad, 2 PUFF INH QID PRN for SHORTNESS OF BREATH, (Reported) Amitriptyline HCl 50 Mg Tablet, 50 MG PO HS, (Reported) Apixaban 5 Mg Tablet, 5 MG PO BID, (Reported) LAST FILLED 07-28-2019 #180/90 DAY SUPPLY Aripiprazole 10 Mg Tablet, 15 MG PO DAILY, (Reported) TAKES 1 & OF A 10MG TAB Ascorbic Acid 500 Mg Capsule, 500 MG PO DAILY, (Reported) Baclofen 20 Mg Tablet, 20 MG PO TID, (Reported) LAST FILLED 06-01-2019 #270/90 DAY SUPPLY Cholecalciferol (Vitamin D3) 25 Mcg Tablet, 50 MCG PO DAILY, (Reported) Clonazepam 1 Mg Tablet, 1 MG PO BID, (Reported) Colesevelam HCl 625 Mg Tablet, 937.5 MG PO QID, (Reported) Cyanocobalamin (Vitamin B-12) 1,000 Mcg Tablet, 1,000 MCG PO DAILY, (Reported) Dapagliflozin Propanediol 5 Mg Tablet, 5 MG PO DAILY, (Reported) Digoxin 250 Mcg Tablet, 250 MCG PO DAILY, (Reported) Docusate Sodium 100 Mg Tablet, 100 MG PO DAILY, (Reported) Donepezil HCl 10 Mg Tablet, 10 MG PO HS, (Reported) LAST FILLED 07-16-2019 #90 Erenumab-Aooe 70 Mg/1 Ml Auto.injct, 70 MG MONTHLY, (Reported) Fludrocortisone Acetate 0.1 Mg Tab, 0.1 MG PO Q48H, (Reported) Fluticasone Propionate 16 Gm [place].susp, 2 SPRAYS NS BID PRN for ALLERGIES, (Reported) Fluticasone/Umeclidin/Vilanter 1 Each Blst.w.dev, 1 EACH IH DAILY, (Reported) LAST FILLED 08-05-2019 #3/90 DAY SUPPLY Furosemide 20 Mg Tablet, 20 MG PO DAILY, (Reported) Gabapentin 400 Mg Capsule, 400 MG PO DAILY, (Reported) Gabapentin 400 Mg Capsule, 800 MG PO 1800, (Reported) TAKES 2 (400MG) TABS L.acidoph & Paracasei,B.lactis 1 Each Capsule, 1 EACH PO DAILY, (Reported) Levocetirizine Dihydrochloride 5 Mg Tablet, 5 MG PO DAILY, (Reported) Memantine HCl 10 Mg Tablet, 10 MG PO HS, (Reported) Mirtazapine 45 Mg Tablet, 45 MG PO HS, (Reported) Montelukast Sodium 10 Mg Tablet, 10 MG PO HS, (Reported) Nitroglycerin 0.4 Mg Tab.subl, 0.4 MG SL UD PRN for CHEST PAIN (ANGINA), (Reported) Pantoprazole Sodium 40 Mg Tablet.dr, 40 MG PO BID, (Reported) Prednisone 5 Mg Tablet, 5 MG PO DAILY, (Reported) Primidone 250 Mg Tablet, 250 MG PO Q8H, (Reported) Ropinirole HCl 2 Mg Tablet, 2 MG PO HS, (Reported) Sertraline HCl 100 Mg Tablet, 100 MG PO DAILY, (Reported) Simvastatin 20 Mg Tablet, 20 MG PO HS, (Reported) Sucralfate 1 Gm Tablet, 1 GM PO ACHS, (Reported) Trazodone HCl 100 Mg Tablet, 200 MG PO HS, (Reported) TAKES 2 (100MG) TABS Patient Home Medication List Home Medication List Reviewed: Yes Review of Systems Review of Systems Constitutional: see HPI, dizziness, weakness EENTM: no symptoms reported, other (green nasal discharge) Respiratory: no symptoms reported Cardiovascular: no symptoms reported Gastrointestinal: diarrhea Genitourinary: no symptoms reported Musculoskeletal: no symptoms reported Skin: no symptoms reported Psychiatric/Neurological: Weakness (generalized; dizziness) Past Gxjhkrc-Swsiwj-Pksybe Hx Patient Social History Alcohol Use: Denies Use Type Used: Cigarettes Former Smoker, Quit: Dec 05, 2016 2nd Hand Smoke Exposure: Yes Recent Hopitalizations: No Immunizations Up To Date Tetanus Booster (TDap): Unknown PED Vaccines UTD: No Date of Pneumonia Vaccine: Jan 11, 2019 Date of Influenza Vaccine: Dec 30, 2019 Seasonal Allergies Seasonal Allergies: No Past Medical History Surgeries: Yes (4 neck surgeries, thumb surgery both hands, bilat carple tunnel) Abdominal, Appendectomy, Bladder Surgery, Cardiac, Gallbladder, Joint Replacement, Orthopedic, Pancreatic, Tubal Ligation Respiratory: Yes Asthma, COPD Currently Using CPAP: No Currently Using BIPAP: No Cardiac: Yes Atrial Fibrillation, Coronary Artery Disease, High Cholesterol, Hypertension, Irregular Heartbeat, Palpitations, Peripheral Vascular Neurological: No Dementia, Headaches /Migraines, Neuropathy 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 Disorders: No 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 Disorders: 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 Sexually Transmitted Disease: No HIV/AIDS: No Genitourinary: Yes (SUPRAPUBIC CATH STARTED LAST MONTH) UTI-Chronic Gastrointestinal: Yes Gastroesophageal Reflux, Polyps, Hiatal Hernia, Gall Bladder Disease Musculoskeletal: Yes (CBP chronic knee pain, HIP REPLACEMENT 02/08/19) Arthritis Endocrine: Yes Hypothyroidsim, Diabetes, Non-Insulin dep HEENT: Yes (cataracts removed) Cataract Loss of Vision: Denies Hearing Impairment: Denies Cancer: Yes Bladder Did You Recieve Any Treatments: Yes What Type of Treatment Did You: Surgical Intervention Psychosocial: Yes Anxiety, Depression Integumentary: No Psoriasis Blood Disorders: No Adverse Reaction/Blood Tranf: No Family Medical History Cardiovascular disease G8 BROTHER (TRIPLE BYPASS) Diabetes mellitus 19 MOTHER FH: COPD (chronic obstructive pulmonary disease) 19 MOTHER FH: breast cancer 19 MOTHER FHx: brain cancer 19 FATHER No Pertinent Family Hx Physical Exam Vital Signs Vital Signs - First Documented 04/26/20 10:20 Temp 36.1 Pulse 92 Resp 24 B/P (MAP) 121/71 (88) Pulse Ox 94 O2 Delivery Nasal Cannula O2 Flow Rate 2.00 Capillary Refill : Height, Weight, BMI Height: 5'4.00" Weight: 165lbs. 0.0oz. 72.533680mz; 26.87 BMI Method:Stated General Appearance: No Apparent Distress, WD/WN Eyes: Bilateral Eye Normal Inspection, Bilateral Eye PERRL, Bilateral Eye EOMI HEENT: PERRL/EOMI, TMs Normal, Normal ENT Inspection Neck: Full Range of Motion Respiratory: Lungs Clear, Normal Breath Sounds, No Accessory Muscle Use, No Respiratory Distress Cardiovascular: Regular Rate, Rhythm Gastrointestinal: Normal Bowel Sounds Extremity: Normal Capillary Refill, Normal Inspection, Normal Range of Motion, No Calf Tenderness, No Pedal Edema Neurologic/Psychiatric: Alert, Oriented x3, No Motor/Sensory Deficits, Normal 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, 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 Skin: Normal Color, Warm/Dry Progress/Results/Core Measures Suspected Sepsis SIRS Temperature: Pulse: 96 Respiratory Rate: Laboratory Tests 04/26/20 11:29: White Blood Count 5.2 Blood Pressure 103 /73 Mean: 83 Laboratory Tests 04/26/20 11:29: Creatinine 0.59L, Platelet Count 226 Results/Orders Lab Results Laboratory Tests Test 04/26/20 11:29 Range/Units White Blood Count 5.2 4.3-11.0 10^3/uL Red Blood Count 4.82 3.80-5.11 10^6/uL Hemoglobin 13.9 11.5-16.0 g/dL Hematocrit 45 35-52 % Mean Corpuscular Volume 92 80-99 fL Mean Corpuscular Hemoglobin 29 25-34 pg Mean Corpuscular Hemoglobin Concent 31 L 32-36 g/dL Red Cell Distribution Width 15.2 H 10.0-14.5 % Platelet Count 226 130-400 10^3/uL Mean Platelet Volume 9.7 9.0-12.2 fL Immature Granulocyte % (Auto) 0 % Neutrophils (%) (Auto) 49 42-75 % Lymphocytes (%) (Auto) 34 12-44 % Monocytes (%) (Auto) 11 0-12 % Eosinophils (%) (Auto) 5 0-10 % Basophils (%) (Auto) 1 0-10 % Neutrophils # (Auto) 2.5 1.8-7.8 10^3/uL Lymphocytes # (Auto) 1.8 1.0-4.0 10^3/uL Monocytes # (Auto) 0.6 0.0-1.0 10^3/uL Eosinophils # (Auto) 0.3 0.0-0.3 10^3/uL Basophils # (Auto) 0.0 0.0-0.1 10^3/uL Immature Granulocyte # (Auto) 0.0 0.0-0.1 10^3/uL Sodium Level 141 135-145 MMOL/L Potassium Level 3.5 L 3.6-5.0 MMOL/L Chloride Level 106 98-107 MMOL/L Carbon Dioxide Level 26 21-32 MMOL/L Anion Gap 9 5-14 MMOL/L Blood Urea Nitrogen 13 7-18 MG/DL Creatinine 0.59 L 0.60-1.30 MG/DL Estimat Glomerular Filtration Rate > 60 BUN/Creatinine Ratio 22 Glucose Level 100 70-105 MG/DL Calcium Level 9.2 8.5-10.1 MG/DL My Orders Orders - GINA GUTIERREZ MD Orthostatic Vital Signs (Adult (04/26/20 11:19) Cbc With Automated Diff (04/26/20 11:19) Basic Metabolic Panel (04/26/20 11:19) Ct Head Wo (04/26/20 12:35) Ns Iv 1000 Ml (Sodium Chloride 0.9%) (04/26/20 13:15) Meclizine Tablet (Antivert Tablet) (04/26/20 13:15) Hydrocodone/Apap 5/325 Tablet (Lortab 5 (04/26/20 13:45) Medications Given in ED Current Medications Medications Dose Ordered Sig/[place] Route Start Time Stop Time Status Last Admin Dose Admin Acetaminophen/ Hydrocodone Bitart 1 tab ONCE ONCE PO 04/26/20 13:45 04/26/20 13:46 DC 04/26/20 13:51 1 TAB Meclizine HCl 25 mg ONCE ONCE PO 04/26/20 13:15 04/26/20 13:16 DC 04/26/20 13:20 25 MG Vital Signs/I&O 04/26/20 04/26/20 10:20 11:36 Temp 36.1 Pulse 92 85 90 96 Resp 24 B/P (MAP) 121/71 (88) 103/68 (80) 103/64 (77) 103/73 (83) Pulse Ox 94 O2 Delivery Nasal Cannula O2 Flow Rate 2.00 Capillary Refill : Blood Pressure Mean: 83 Progress Note : Time: 12:54 Progress Note Patient seen and evaluated, 64-year-old with a chief complaint of dizziness and generalized weakness. Patient is slightly concerned about her mildly elevated blood sugar as well. Patient had basic laboratory studies done these have been evaluated and are within normal limits. Patient has no significant alterations in her blood chemistry. Her potassium is slightly low. Not low enough to supplement however. Patient will have CT scan of the brain noncontrast to further evaluate for this "dizziness". Neurologically her exam is normal. [address] brain is unremarkable. No acute intracranial abnormalities are observed. Patient will be hydrated with a liter of fluid she is given 25 mg of meclizine for her dizziness. Patient plan is to discharge on meclizine and close follow-up with her primary care physician, Dr. Vipin Goodman through [facility] in [place]. Patient has no clinical or objective findings to warrant further studies from the emergency department. No specific cause is found for her dizziness. I suspect it is a combination of her home medications as well as some dehydration from having diarrhea for the last 3 weeks. Patient is comfortable with the plan of care. All questions are sought and answered. Patient is stable for discharge. 1415 Patient feels much better prior to discharge. Her dizziness is resolved. Departure Impression Primary Impression: Dizziness Disposition: 01 HOME, SELF-CARE Condition: Stable Departure-Patient Inst. Decision time for Depature: 13:51 Referrals: POOJA SMITH (PCP) Primary Care Physician VIPIN GOODMAN DO (Family) Primary Care Physician Patient Instructions: Dizziness, Nonvertigo, (DC) Add. Discharge Instructions: Continue to take your daily home medications as prescribed. You can also take the meclizine I have prescribed every 6 hours as needed for dizziness. Please contact your primary care doctor's office for follow-up appointment. Come back to the emergency room if you have any persistent dizziness especially dizziness that is associated with severe headache, vision changes, speech difficulties, one-sided weakness or any other emergent concerning symptoms. Scripts Meclizine HCl (Meclizine HCl) 25 Mg Tablet 25 MG PO Q6H PRN for DIZZINESS, #20 TAB Prov: GINA GUTIERREZ MD 04/26/20 GINA GUTIERREZ MD Apr 26, 2020 13:00
--- NOTE | 2020-04-26 13:04 | Diagnostic Imaging Report ---
PROCEDURE: CT head without contrast. TECHNIQUE: Multiple contiguous axial images were obtained through the brain without the use of intravenous contrast. Auto Exposure Controls were utilized during the CT exam to meet ALARA standards for radiation dose reduction. INDICATION: Severe dizziness. COMPARISON: CT head without contrast 11/01/2019. FINDINGS: Mild generalized cerebral and cerebellar parenchymal volume loss. Mild leukoaraiosis. No CT evidence of territorial infarction. Stable calcifications in the left basal ganglia. No intracranial hemorrhage, mass effect, hydrocephalus or extra-axial fluid collections. Osseous structures are intact. Paranasal sinuses and mastoids are clear. IMPRESSION: No acute intracranial CT findings. Stable chronic findings as above. Dictated by: Dictated on workstation # [id number]
== END ==
LOC: EDUNIT# 09:59 → ER 10:01
DX: R42 Dizziness and giddiness (principal); K21.9 Gastro-esophageal reflux disease without esophagitis; J44.9 Chronic obstructive pulmonary disease, unspecified; I48.91 Unspecified atrial fibrillation; F41.9 Anxiety disorder, unspecified; E78.00 Pure hypercholesterolemia, unspecified; F32.9 Major depressive disorder, single episode, unspecified; E11.9 Type 2 diabetes mellitus without complications; F03.90 Unspecified dementia, unspecified severity, without behavioral disturbance, psychotic disturbance, mood disturbance, and anxiety; Z88.1 Allergy status to other antibiotic agents; Z88.6 Allergy status to analgesic agent; Z88.8 Allergy status to other drugs, medicaments and biological substances; Z87.891 Personal history of nicotine dependence; Z85.51 Personal history of malignant neoplasm of bladder; Z82.49 Family history of ischemic heart disease and other diseases of the circulatory system; Z80.3 Family history of malignant neoplasm of breast; Z83.3 Family history of diabetes mellitus; Z80.8 Family history of malignant neoplasm of other organs or systems; Z79.01 Long term (current) use of anticoagulants; Z79.52 Long term (current) use of systemic steroids
CPT/HCPCS: 36415; 70450; 80048; 85025; 93005

== ENCOUNTER 2020-05-04 04:20 | Inpatient (IN) | payer MEDICARE, MEDICAID ==
[~2020-05-04] VITALS: Ht 162.6 cm; Wt 74.8 kg
[~2020-05-04 04:20] MED LIST changes: -HYDROcodone/APAP 5 MG/325 MG (LORTAB) TAB PO ONE; -MECLIZINE 25 MG (ANTIVERT) TAB PO ONE; -NS IV 1000 ML 1,000 ML IV SCH
--- NOTE | 2020-05-04 04:59 | ED Trauma-Multisystem ---
General Chief Complaint: Trauma-Non Activation Stated Complaint: FALL Nursing Triage Note: FELL AT HOME WHILE GOING TO THE BATHROOM. STATES FELL ON HER BACK HIT HER HEAD BUT DID NO LOC. (JAMIE ESTRADA MED STUDENT) History of Present Illness Date Seen by Provider: May 04, 2020 Location Injury Occurred: HOME (JAMIE ESTRADA STUDENT) Time Seen by Provider: 04:21 Initial Comments This 64-year-old woman presents to the emergency room via EMS after having a fall at her home. She got up to go out and smoke early this morning when she lost her balance and fell despite using her walker. She had a recent fall resulting in right hip fracture. She underwent surgery for hip arthroplasty at [facility] and was discharged yesterday. She reports being very confused yesterday and slightly confused today. She complains of pain in her lower back and her right hip. She is noted to be tachycardic with a heart rate in the 120s during assessment. She reports falling on her hip or tailbone. She denies any significant injury to her head or neck. (DAVIDSON CORTEZ MD) Allergies and Home Medications Allergies Coded Allergies: bacitracin (Verified Allergy, Intermediate, "I BREAK OUT IN A RASH ALL OVER.", 04/20/19) neomycin (Verified Allergy, Intermediate, "I BREAK OUT IN A RASH ALL OVER.", 04/20/19) polymyxin B (Verified Allergy, Intermediate, "I BREAK OUT IN A RASH ALL OVER.", 04/20/19) ibuprofen (Verified Allergy, Mild, RASH, 04/20/19) naproxen (Verified Allergy, Mild, RASH, 04/20/19) Home Medications Albuterol Sulfate 2.5 Mg/3 Ml Vial.neb, 2.5 MG NEB Q6H PRN for SHORTNESS OF BR EATH, (Reported) Albuterol Sulfate 18 Gm Hfa.aer.ad, 2 PUFF INH QID PRN for SHORTNESS OF BREATH, (Reported) Amitriptyline HCl 50 Mg Tablet, 50 MG PO HS, (Reported) Apixaban 5 Mg Tablet, 5 MG PO BID, (Reported) LAST FILLED 07-28-2019 #180/90 DAY SUPPLY Aripiprazole 10 Mg Tablet, 15 MG PO DAILY, (Reported) TAKES 1 & OF A 10MG TAB Ascorbic Acid 500 Mg Capsule, 500 MG PO DAILY, (Reported) Baclofen 20 Mg Tablet, 20 MG PO TID, (Reported) LAST FILLED 06-01-2019 #270/90 DAY SUPPLY Cholecalciferol (Vitamin D3) 25 Mcg Tablet, 50 MCG PO DAILY, (Reported) Clonazepam 1 Mg Tablet, 1 MG PO BID, (Reported) Colesevelam HCl 625 Mg Tablet, 937.5 MG PO QID, (Reported) Cyanocobalamin (Vitamin B-12) 1,000 Mcg Tablet, 1,000 MCG PO DAILY, (Reported) Dapagliflozin Propanediol 5 Mg Tablet, 5 MG PO DAILY, (Reported) Digoxin 250 Mcg Tablet, 250 MCG PO DAILY, (Reported) Docusate Sodium 100 Mg Tablet, 100 MG PO DAILY, (Reported) Donepezil HCl 10 Mg Tablet, 10 MG PO HS, (Reported) LAST FILLED 07-16-2019 #90 Erenumab-Aooe 70 Mg/1 Ml Auto.injct, 70 MG MONTHLY, (Reported) Fludrocortisone Acetate 0.1 Mg Tab, 0.1 MG PO Q48H, (Reported) Fluticasone Propionate 16 Gm [place]a.susp, 2 SPRAYS NS BID PRN for ALLERGIES, (Reported) Fluticasone/Umeclidin/Vilanter 1 Each Blst.w.dev, 1 EACH IH DAILY, (Reported) LAST FILLED 08-05-2019 #3/90 DAY SUPPLY Furosemide 20 Mg Tablet, 20 MG PO DAILY, (Reported) Gabapentin 400 Mg Capsule, 400 MG PO DAILY, (Reported) Gabapentin 400 Mg Capsule, 800 MG PO 1800, (Reported) TAKES 2 (400MG) TABS L.acidoph & Paracasei,B.lactis 1 Each Capsule, 1 EACH PO DAILY, (Reported) Levocetirizine Dihydrochloride 5 Mg Tablet, 5 MG PO DAILY, (Reported) Meclizine HCl 25 Mg Tablet, 25 MG PO Q6H PRN for DIZZINESS Prescribed by: GINA GUTIERREZ on 04/26/20 1415 Memantine HCl 10 Mg Tablet, 10 MG PO HS, (Reported) Mirtazapine 45 Mg Tablet, 45 MG PO HS, (Reported) Montelukast Sodium 10 Mg Tablet, 10 MG PO HS, (Reported) Nitroglycerin 0.4 Mg Tab.subl, 0.4 MG SL UD PRN for CHEST PAIN (ANGINA), (Reported) Pantoprazole Sodium 40 Mg Tablet.dr, 40 MG PO BID, (Reported) Prednisone 5 Mg Tablet, 5 MG PO DAILY, (Reported) Primidone 250 Mg Tablet, 250 MG PO Q8H, (Reported) Ropinirole HCl 2 Mg Tablet, 2 MG PO HS, (Reported) Sertraline HCl 100 Mg Tablet, 100 MG PO DAILY, (Reported) Simvastatin 20 Mg Tablet, 20 MG PO HS, (Reported) Sucralfate 1 Gm Tablet, 1 GM PO ACHS, (Reported) Trazodone HCl 100 Mg Tablet, 200 MG PO HS, (Reported) TAKES 2 (100MG) TABS Patient Home Medication List Home Medication List Reviewed: Yes (DAVIDSON CORTEZ MD) Home Medication List Reviewed: Yes (FABIO HERRING) Review of Systems Review of Systems Constitutional: no symptoms reported Eyes: No Symptoms Reported Ears: No Symptoms Reported Nose: No Symptoms Reported Mouth: No Symptoms Reported Throat: No Symptoms to Report Respiratory: no symptoms reported Cardiovascular: See HPI Gastrointestinal: no symptoms reported Genitourinary: other (Cloudy urine in urostomy tubing) : No Musculoskeletal: see HPI Skin: no symptoms reported Psychiatric/Neurological: See HPI (DAVIDSON CORTEZ MD) Past Jdeshlm-Wjvqln-Dttbdb Hx Past Med/Social Hx: Reviewed Nursing Past Med/Soc Hx (DAVIDSON CORTEZ MD) Patient Social History Alcohol Use: Denies Use Type Used: Cigarettes Former Smoker, Quit: Dec 05, 2016 2nd Hand Smoke Exposure: Yes Recent Hopitalizations: No (JAMIE ESTRADA) Immunizations Up To Date Tetanus Booster (TDap): Unknown PED Vaccines UTD: No Date of Pneumonia Vaccine: Jan 11, 2019 Date of Influenza Vaccine: Dec 30, 2019 (JAMIE ESTRADA) Seasonal Allergies Seasonal Allergies: No (JAMIE ESTRADA) Past Medical History Surgeries: Yes (4 neck surgeries, thumb surgery both hands, bilat carple tunnel, bilat hip) Abdominal, Appendectomy, Bladder Surgery, Cardiac, Gallbladder, Joint Replacement, Orthopedic, Pancreatic, Tubal Ligation Respiratory: Yes (oxygen at night) Asthma, COPD Currently Using CPAP: No Currently Using BIPAP: No Cardiac: Yes Atrial Fibrillation, Coronary Artery Disease, High Cholesterol, Hypertension, Irregular Heartbeat, Palpitations, Peripheral Vascular Neurological: Yes Dementia, Headaches /Migraines, Neuropathy 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 Disorders: No 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 Disorders: Denies 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 Sexually Transmitted Disease: No HIV/AIDS: No Genitourinary: Yes (SUPRAPUBIC CATH STARTED LAST MONTH) UTI-Chronic Gastrointestinal: Yes Gastroesophageal Reflux, Polyps, Hiatal Hernia, Gall Bladder Disease Musculoskeletal: Yes (CBP chronic knee pain, HIP REPLACEMENT 02/08/19) Arthritis Endocrine: Yes Hypothyroidsim, Diabetes, Non-Insulin dep Are Your Blood Sugars Over 250: No HEENT: Yes (cataracts removed) Cataract Loss of Vision: Denies Hearing Impairment: Denies Cancer: Yes Bladder Did You Recieve Any Treatments: Yes What Type of Treatment Did You: Surgical Intervention Psychosocial: Yes Anxiety, Depression Integumentary: No Psoriasis Blood Disorders: No Adverse Reaction/Blood Tranf: No (JAMIE ESTRADA MED STUDENT) Family Medical History Cardiovascular disease G8 BROTHER (TRIPLE BYPASS) Diabetes mellitus 19 MOTHER FH: COPD (chronic obstructive pulmonary disease) 19 MOTHER FH: breast cancer 19 MOTHER FHx: brain cancer 19 FATHER No Pertinent Family Hx (JAMIE ESTRADA MED STUDENT) Physical Exam Vital Signs Vital Signs - First Documented 05/04/20 04:20 Temp 36.2 Pulse 122 Resp 20 B/P (MAP) 131/81 (98) Pulse Ox 96 (DAVIDSON CORTEZ MD) Height, Weight, BMI Height: 5'4.00" Weight: 165lbs. 0.0oz. 72.375889ce; 27.00 BMI Method:Stated (JAMIE ESTRADA MED STUDENT) General Appearance: WD/WN, Mild Distress Head: No Evidence of Injury Ears, Nose, Throat: No Evidence of ENT Injury, Other (Mucous membranes somewhat dry) Neck: Normal Inspection Cardiovascular: No Edema, No Murmur, Tachycardia Respiratory: Lungs Clear, Normal Breath Sounds, No Accessory Muscle Use, No Respiratory Distress Gastrointestinal: Soft, Tenderness (Mild in the right flank region) Back: Vertebral Tenderness (Lumbar spine) Extremity: Normal Inspection, No Pedal Edema, Other (Dressing intact over the right hip, tenderness over the right hip) Neurologic/Psychiatric: Alert, Oriented x3, No Motor/Sensory Deficits, Normal 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, 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 Norm as Tested Skin: Normal Color, Warm/Dry (DAVIDSON CORTEZ MD) Caputa Coma Score Best Eye Response (Caputa): (4) Open Spontaneously Best Verbal Response (Caputa): (5) Oriented Best Motor Response (Caputa): (6) Obeys Commands (DAVIDSON CORTEZ MD) Focused Exam Lactate Level 05/04/20 04:45: Lactic Acid Level 1.09 (DAVIDSON CORTEZ MD) Lactic Acid Level Laboratory Tests Test 05/04/20 04:45 Lactic Acid Level 1.09 MMOL/L (0.50-2.00) (DAVIDSON CORTEZ MD) Progress/Results/Core Measures Results/Orders Lab Results Laboratory Tests Test 05/04/20 04:38 05/04/20 04:45 Range/Units Urine Color YELLOW Urine Clarity TURBID Urine pH 7.0 5-9 Urine Specific [place] 1.010 L 1.016-1.022 Urine Protein TRACE H NEGATIVE Urine Glucose (UA) NEGATIVE NEGATIVE Urine Ketones NEGATIVE NEGATIVE Urine Nitrite NEGATIVE NEGATIVE Urine Bilirubin NEGATIVE NEGATIVE Urine Urobilinogen 1.0 < = 1.0 MG/DL Urine Leukocyte Esterase 1+ H NEGATIVE Urine RBC (Auto) 1+ H NEGATIVE Urine RBC 5-10 H /HPF Urine WBC 5-10 H /HPF Urine Squamous Epithelial Cells 10-25 H /HPF Urine Crystals NONE /LPF Urine Bacteria MODERATE H /HPF Urine Casts NONE /LPF Urine Mucus NEGATIVE /LPF Urine Yeast LARGE H /HPF Urine Culture Indicated CULTURE PENDING White Blood Count 7.9 4.3-11.0 10^3/uL Red Blood Count 3.97 3.80-5.11 10^6/uL Hemoglobin 11.7 11.5-16.0 g/dL Hematocrit 36 35-52 % Mean Corpuscular Volume 91 80-99 fL Mean Corpuscular Hemoglobin 30 25-34 pg Mean Corpuscular Hemoglobin Concent 32 32-36 g/dL Red Cell Distribution Width 14.7 H 10.0-14.5 % Platelet Count 243 130-400 10^3/uL Mean Platelet Volume 9.9 9.0-12.2 fL Immature Granulocyte % (Auto) 1 % Neutrophils (%) (Auto) 78 H 42-75 % Lymphocytes (%) (Auto) 9 L 12-44 % Monocytes (%) (Auto) 9 0-12 % Eosinophils (%) (Auto) 3 0-10 % Basophils (%) (Auto) 0 0-10 % Neutrophils # (Auto) 6.2 1.8-7.8 10^3/uL Lymphocytes # (Auto) 0.7 L 1.0-4.0 10^3/uL Monocytes # (Auto) 0.7 0.0-1.0 10^3/uL Eosinophils # (Auto) 0.2 0.0-0.3 10^3/uL Basophils # (Auto) 0.0 0.0-0.1 10^3/uL Immature Granulocyte # (Auto) 0.1 0.0-0.1 10^3/uL Prothrombin Time 13.9 12.2-14.7 SEC INR Comment 1.0 0.8-1.4 Activated Partial Thromboplast Time 40 H 24-35 SEC Sodium Level 137 135-145 MMOL/L Potassium Level 4.1 3.6-5.0 MMOL/L Chloride Level 105 98-107 MMOL/L Carbon Dioxide Level 22 21-32 MMOL/L Anion Gap 10 5-14 MMOL/L Blood Urea Nitrogen 6 L 7-18 MG/DL Creatinine 0.58 L 0.60-1.30 MG/DL Estimat Glomerular Filtration Rate > 60 BUN/Creatinine Ratio 10 Glucose Level 136 H 70-105 MG/DL Lactic Acid Level 1.09 0.50-2.00 MMOL/L Calcium Level 8.3 L 8.5-10.1 MG/DL Corrected Calcium 8.9 8.5-10.1 MG/DL Total Bilirubin 0.6 0.1-1.0 MG/DL Aspartate Amino Transf (AST/SGOT) 33 5-34 U/L Alanine Aminotransferase (ALT/SGPT) 20 0-55 U/L Alkaline Phosphatase 219 H 40-136 U/L Total Protein 6.2 L 6.4-8.2 GM/DL Albumin 3.3 3.2-4.5 GM/DL (DAVIDSON CORTEZ MD) My Orders Orders - DAVIDSON CORTEZ MD Pelvis With Right Hip 2-3views (05/04/20 04:41) Ct Lumbar Spine Wo (05/04/20 04:41) Cbc With Automated Diff (05/04/20 04:41) Comprehensive Metabolic Panel (05/04/20 04:41) Blood Culture (05/04/20 04:41) Sputum Culture (05/04/20 04:41) Urinalysis (05/04/20 04:41) Urine Culture (05/04/20 04:41) Protime With Inr (05/04/20 04:41) Partial Thromboplastin Time (05/04/20 04:41) Chest 1 View, Ap/Pa Only (05/04/20 04:41) Ed Iv/Invasive Line Start (05/04/20 04:41) Vital Signs Adult Sepsis Patie Q15M (05/04/20 04:41) O2 (05/04/20 04:41) Remove Rings In Anticipation O (05/04/20 04:41) Lactic Acid Analyzer (05/04/20 04:41) Ekg Tracing (05/04/20 04:44) Monitor-Rhythm Ecg Trace Only (05/04/20 04:44) (DAVIDSON CORTEZ MD) Medications Given in ED Current Medications Medications Dose Ordered Sig/[place] Route Start Time Stop Time Status Last Admin Dose Admin Ceftriaxone Sodium 1000 mg/ Sterile Water 10 ml @ 200 mls/hr ONCE ONCE IV 05/04/20 06:30 05/04/20 06:32 DC 05/04/20 06:36 200 MLS/HR Fentanyl Citrate 50 mcg ONCE ONCE IVP 05/04/20 06:30 05/04/20 06:31 DC 05/04/20 06:36 50 MCG Lactated Ringer's 1,000 ml @ 0 mls/hr Q0M ONCE IV 05/04/20 06:30 05/04/20 06:31 DC 05/04/20 06:37 1,000 MLS/HR (DAVIDSON CORTEZ MD) Vital Signs/I&O 05/04/20 05/04/20 04:20 04:45 Temp 36.2 36.2 Pulse 122 122 Resp 20 20 B/P (MAP) 131/81 (98) 131/81 (98) Pulse Ox 96 96 (DAVIDSON CORTEZ MD) Progress Progress Note : Time: 06:54 Progress Note Care of this patient was transitioned to Dr. Herring. Patient was reexamined and found to have a more tender abdomen. Heart rate was still tachycardic. Patient takes Eliquis. In this context CT of the abdomen and pelvis is appropriate. CT is pending. Fentanyl was ordered for pain control and IV fluids are being administered. (DAVIDSON CORTEZ MD) Initial ECG Impression Date: May 04, 2020 Initial ECG Impression Time: 04:51 Initial ECG Rate: 119 Initial ECG Rhythm: S.Tach Comment EKG shows sinus tachycardia at [address] elevation or depression. No axis deviation. No abnormal intervals. No changes since previous EKG. (JAMIE ESTRADA MED STUDENT) Diagnostic Imaging Diagonstic Imaging: Xray Plain Films/CT/US/NM/MRI: chest Comments Chest x-ray viewed by me and report reviewed. See report below: NAME[facility] [id number] PT STATUS: REG ER : 1955 PHYSICIAN: DAVIDSON CORTEZ MD ADMIT DATE: 05/04/20/ER Draft Date of Exam:05/04/20 CHEST 1 VIEW, AP/PA ONLY HISTORY: Fall, right hip pain, pelvic and back pain, sepsis COMPARISON: 12/30/2019 TECHNIQUE: Frontal view chest FINDINGS: There are airspace opacities at the left lung base. No pleural effusion or pneumothorax is seen. The cardiac silhouette is normal in size. Fusion hardware is seen in the cervical spine. IMPRESSION: 1. Airspace opacities in the left lung base, may represent atelectasis or infiltrate. Dictated on workstation # [id number] Dict: 05/04/20 0632 Trans: 05/04/20 0639 [facility] [id number] Interpreted by: FAISAL SURESH MD Diagonstic Imaging: Xray Plain Films/CT/US/NM/MRI: pelvis, hip Comments X-ray of the pelvis and hip reviewed by me and report reviewed. See report below: NAME: MINGO JOSÉ [facility] REC#: [id number] PT STATUS: REG ER : 1955 PHYSICIAN: DAVIDSON CORTEZ MD ADMIT DATE: 05/04/20/ER Draft Date of Exam:05/04/20 PELVIS WITH RIGHT HIP 2-3VIEWS HISTORY: Fall with right hip and pelvic pain COMPARISON: CT of the abdomen and pelvis from 02/29/2020 TECHNIQUE: Frontal view pelvis. Frontal and lateral views of the right hip FINDINGS: There are bilateral total hip arthroplasties. Alignment appears normal. No hardware complication is seen. No acute fracture is seen in the pelvis or the right hip. Soft tissue swelling about the lateral and right thigh. There are degenerative changes in the lower lumbar spine. IMPRESSION: 1. Bilateral hip arthroplasties with no hardware complication seen. No acute osseous abnormality is seen in the pelvis or right hip. Dictated on workstation # [id number] Dict: 05/04/20632 Trans: 05/04/20639 [facility] [id number] Interpreted by: FAISAL SURESH MD Diagonstic Imaging: CT Plain Films/CT/US/NM/MRI: other (Lumbar spine) Comments CT of the lumbar spine viewed by me and report reviewed. See report below: NAME: MINGO JOSÉ [facility] REC#: [id number] PT STATUS: REG ER : 1955 PHYSICIAN: DAVIDSON CORTEZ MD ADMIT DATE: 05/04/20/ER Draft Date of Exam:05/04/20 CT LUMBAR SPINE WO PROCEDURE: CT lumbar spine without contrast. TECHNIQUE: Multiple contiguous axial images were obtained through the lumbar spine without the use of intravenous contrast. Sagittal and coronal reformations were then performed. Auto Exposure Controls were utilized during the CT exam to meet ALARA standards for radiation dose reduction. INDICATION: Fall with back pain and pelvic pain as well as right hip pain. FINDINGS: There is mild right convexity lumbar scoliotic curvature. There is normal lordotic curvature. Vertebral body heights are maintained. No acute compression fracture is detected. Disc spaces are fairly well-maintained. Abdominal aorta and iliac vessels are heavily calcified. Imaging through the lung bases does show some airspace infiltrate in the left lower lobe as well as trace pleural fluid. IMPRESSION: 1. No acute bony abnormality is identified. 2. Patchy left lower lobe airspace infiltrate consistent with pneumonia. Dictated on workstation # [id number] Dict: 05/04/20623 Trans: 05/04/20627 [id number] Interpreted by: CHRISTIANNE SERRANO MD (DAVIDSON CORTEZ MD) Plain Films/CT/US/NM/MRI: other (Lumbar spine) Diagonstic Imaging: CT Plain Films/CT/US/NM/MRI: abdomen, pelvis Comments NAME: MINGO JOSÉ [facility] REC#: [id number] PT STATUS: REG ER : 1955 PHYSICIAN: FABIO HERRING MD ADMIT DATE: 05/04/20/ER Draft Date of Exam:05/04/20 CT ABDOMEN/PELVIS W PROCEDURE: CT abdomen and pelvis with contrast. TECHNIQUE: Multiple contiguous axial images were obtained through the abdomen and pelvis after administration of intravenous contrast. Auto Exposure Controls were utilized during the CT exam to meet ALARA standards for radiation dose reduction. All CT scans use one or more of the following dose optimizing techniques: automated exposure control, MA and/or KvP adjustment based on patient size and exam type or iterative reconstruction. INDICATION: Fall, pelvic and back pain COMPARISON: 10/29/2019 FINDINGS: There is dependent atelectasis in the lung bases. There is airspace consolidation in the left lower lobe. The heart is upper normal in size. There is a small hiatal hernia. The liver demonstrates no focal lesions. The spleen appears normal. The pancreas is unremarkable. The common bile duct is distended up to 1.5 cm, similar to prior studies. The gallbladder is not seen. No calcified stones are seen. The adrenal glands appear normal. The kidneys demonstrate no hydronephrosis. There is normal enhancement. There are multiple fluid-filled loops of bowel. No high-grade distention is seen to indicate obstruction. There is moderate stool in the colon. Anastomotic sutures and right lower abdominal ostomy are noted. No free fluid is seen. There is extensive calcific atherosclerosis. No lymphadenopathy is seen. There is transitional anatomy at the lumbosacral junction with hemisacralization of L5. No fracture is seen. There is significant streak artifact from the bilateral hip arthroplasties. There is a small amount of gas in the right inguinal region adjacent to the femoral vessels. There is mild subcutaneous edema lateral to the right hip. IMPRESSION: 1. No acute fracture is seen. 2. Fluid-filled loops of bowel, without high-grade distention to suggest obstruction. 3. Left lower lobe consolidation, may represent atelectasis or infection. 4. Small amount of gas in the right inguinal region. Please correlate with recent instrumentation. Dictated on workstation # [id number] Dict: 05/04/20 0713 Trans: 05/04/20 0723 [place] [id number] Interpreted by: FAISAL SURESH MD Electronically signed by: Reviewed: Reviewed by Me (FABIO HERRING) Departure Impression Primary Impression: Fall from standing Qualified Codes: W19.XXXA - Unspecified fall, initial encounter Additional Impressions: Pneumonia Qualified Codes: J18.9 - Pneumonia, unspecified organism Ileus S/P hip hemiarthroplasty UTI (urinary tract infection) Qualified Codes: N30.01 - Acute cystitis with hematuria Disposition: ADMITTED INPATIENT Condition: Stable Admissions Decision to Admit Reason: Admit from ER (General) Decision to Admit/Date: May 04, 2020 Time/Decision to Admit Time: 07:30 (FABIO HERRING) Departure-Patient Inst. Referrals: POOJA SMITH (PCP) Primary Care Physician VIPIN GOODMAN DO (Family) Primary Care Physician JAMIE ESTRADA MED STUDENT May 04, 2020 04:59 DAVIDSON CORTEZ MD May 04, 2020 06:51 FABIO HERRING May 04, 2020 07:30
[2020-05-04 05:04] LABS: BASOPHILS % (AUTO) 0 % (0-10); EOSINOPHILS # (AUTO) 0.2 10^3/uL (0.0-0.3); EOSINOPHILS % (AUTO) 3 % (0-10); HEMATOCRIT 36 % (35-52); HEMOGLOBIN 11.7 g/dL (11.5-16.0); LYMPHOCYTES # (AUTO) 0.7 10^3/uL (1.0-4.0); LYMPHOCYTES % (AUTO) 9 % (12-44); MEAN CORPUSCULAR HEMOGLOBIN 30 pg (25-34); MEAN CORPUSCULAR HGB CONC 32 g/dL (32-36); MEAN CORPUSCULAR VOLUME 91 fL (80-99); MEAN PLATELET VOLUME 9.9 fL (9.0-12.2); MONOCYTES # (AUTO) 0.7 10^3/uL (0.0-1.0); MONOCYTES % (AUTO) 9 % (0-12); NEUTROPHILS # (AUTO) 6.2 10^3/uL (1.8-7.8); NEUTROPHILS % (AUTO) 78 % (42-75); PLATELET COUNT 243 10^3/uL (130-400); WHITE BLOOD COUNT 7.9 10^3/uL (4.3-11.0)
[2020-05-04 05:10] LABS: ALBUMIN 3.3 GM/DL (3.2-4.5); CHLORIDE 105 MMOL/L (98-107); POTASSIUM 4.1 MMOL/L (3.6-5.0); SODIUM 137 MMOL/L (135-145)
[2020-05-04 05:11] LABS: PROTHROMBIN TIME PATIENT 13.9 SEC (12.2-14.7)
[2020-05-04 05:12] LABS: CALCIUM 8.3 MG/DL (8.5-10.1)
[2020-05-04 05:13] LABS: GLUCOSE 136 MG/DL (70-105); TOTAL PROTEIN 6.2 GM/DL (6.4-8.2)
[2020-05-04 05:14] LABS: CARBON DIOXIDE 22 MMOL/L (21-32)
[2020-05-04 05:15] LABS: BILIRUBIN,TOTAL 0.6 MG/DL (0.1-1.0)
[2020-05-04 05:16] LABS: ALKALINE PHOSPHATASE 219 U/L (40-136); CREATININE SERUM 0.58 MG/DL (0.60-1.30); GFR ESTIMATED > 60
[2020-05-04 05:17] LABS: BUN/CREATININE RATIO 10
[2020-05-04 05:19] LABS: ALANINE AMINOTRANSFERASE 20 U/L (0-55)
[2020-05-04 05:32] LABS: BILIRUBIN,URINE NEGATIVE (NEGATIVE); CLARITY,URINE TURBID; COLOR,URINE YELLOW; GLUCOSE, URINE (UA) NEGATIVE (NEGATIVE); KETONES,URINE NEGATIVE (NEGATIVE); LEUKOCYTE ESTERASE ,URINE 1+ (NEGATIVE); NITRITE,URINE NEGATIVE (NEGATIVE); PROTEIN,URINE TRACE (NEGATIVE)
[2020-05-04 05:35] LABS: BACTERIA,URINE MODERATE /HPF; YEAST,URINE LARGE /HPF
[2020-05-04] MEDS ORDERED: WATER (STERILE) FOR INJECTION 10 ML ONE (06:26)
[2020-05-04] MEDS ORDERED: cefTRIAXone 1,000 MG IV (ROCEPHIN) VIAL ONE (06:26)
--- NOTE | 2020-05-04 06:28 | Diagnostic Imaging Report ---
PROCEDURE: CT lumbar spine without contrast. TECHNIQUE: Multiple contiguous axial images were obtained through the lumbar spine without the use of intravenous contrast. Sagittal and coronal reformations were then performed. Auto Exposure Controls were utilized during the CT exam to meet ALARA standards for radiation dose reduction. INDICATION: Fall with back pain and pelvic pain as well as right hip pain. FINDINGS: There is mild right convexity lumbar scoliotic curvature. There is normal lordotic curvature. Vertebral body heights are maintained. No acute compression fracture is detected. Disc spaces are fairly well-maintained. Abdominal aorta and iliac vessels are heavily calcified. Imaging through the lung bases does show some airspace infiltrate in the left lower lobe as well as trace pleural fluid. IMPRESSION: 1. No acute bony abnormality is identified. 2. Patchy left lower lobe airspace infiltrate consistent with pneumonia. Dictated by: Dictated on workstation # [id number]
[2020-05-04] MEDS ORDERED: fentaNYL INJECTION 100 MCG/2 ML AMP IVP ONE ×2 (06:30→07:30)
[2020-05-04] MEDS ORDERED: LACTATED RINGERS 1,000 ML IV ONE (06:30)
[2020-05-04] MEDS ORDERED: cefTRIAXone FOR IV USE 1,000 MG in WATER (STERILE) FOR INJECTION 10 ML IV ONE (06:30)
--- NOTE | 2020-05-04 06:40 | Diagnostic Imaging Report ---
HISTORY: Fall, right hip pain, pelvic and back pain, sepsis COMPARISON: 12/30/2019 TECHNIQUE: Frontal view chest FINDINGS: There are airspace opacities at the left lung base. No pleural effusion or pneumothorax is seen. The cardiac silhouette is normal in size. Fusion hardware is seen in the cervical spine. IMPRESSION: 1. Airspace opacities in the left lung base, may represent atelectasis or infiltrate. Dictated by: Dictated on workstation # [id number]
--- NOTE | 2020-05-04 06:41 | Diagnostic Imaging Report ---
HISTORY: Fall with right hip and pelvic pain COMPARISON: CT of the abdomen and pelvis from 02/29/2020 TECHNIQUE: Frontal view pelvis. Frontal and lateral views of the right hip FINDINGS: There are bilateral total hip arthroplasties. Alignment appears normal. No hardware complication is seen. No acute fracture is seen in the pelvis or the right hip. Soft tissue swelling about the lateral and right thigh. There are degenerative changes in the lower lumbar spine. IMPRESSION: 1. Bilateral hip arthroplasties with no hardware complication seen. No acute osseous abnormality is seen in the pelvis or right hip. Dictated by: Dictated on workstation # [id number]
[2020-05-04] MEDS ORDERED: HOLD METFORMIN - RECEIVED CONTRAST 20 ML VIAL IV SCH (07:15)
[2020-05-04] MEDS ORDERED: IOHEXOL 350 MG/ML 100 ML (OMNIPAQUE 350) VIAL IV ONE (07:15)
[2020-05-04] MEDS ORDERED: NS 100 ML (IVPB) BAG IV ONE (07:15)
--- NOTE | 2020-05-04 07:24 | Diagnostic Imaging Report ---
PROCEDURE: CT abdomen and pelvis with contrast. TECHNIQUE: Multiple contiguous axial images were obtained through the abdomen and pelvis after administration of intravenous contrast. Auto Exposure Controls were utilized during the CT exam to meet ALARA standards for radiation dose reduction. All CT scans use one or more of the following dose optimizing techniques: automated exposure control, MA and/or KvP adjustment based on patient size and exam type or iterative reconstruction. INDICATION: Fall, pelvic and back pain COMPARISON: 10/29/2019 FINDINGS: There is dependent atelectasis in the lung bases. There is airspace consolidation in the left lower lobe. The heart is upper normal in size. There is a small hiatal hernia. The liver demonstrates no focal lesions. The spleen appears normal. The pancreas is unremarkable. The common bile duct is distended up to 1.5 cm, similar to prior studies. The gallbladder is not seen. No calcified stones are seen. The adrenal glands appear normal. The kidneys demonstrate no hydronephrosis. There is normal enhancement. There are multiple fluid-filled loops of bowel. No high-grade distention is seen to indicate obstruction. There is moderate stool in the colon. Anastomotic sutures and right lower abdominal ostomy are noted. No free fluid is seen. There is extensive calcific atherosclerosis. No lymphadenopathy is seen. There is transitional anatomy at the lumbosacral junction with hemisacralization of L5. No fracture is seen. There is significant streak artifact from the bilateral hip arthroplasties. There is a small amount of gas in the right inguinal region adjacent to the femoral vessels. There is mild subcutaneous edema lateral to the right hip. IMPRESSION: 1. No acute fracture is seen. 2. Fluid-filled loops of bowel, without high-grade distention to suggest obstruction. 3. Left lower lobe consolidation, may represent atelectasis or infection. 4. Small amount of gas in the right inguinal region. Please correlate with recent instrumentation. Dictated by: Dictated on workstation # [id number]
[2020-05-04] MEDS ORDERED: ACETAMINOPHEN 325 MG TABLET PO ONE (07:30)
[2020-05-04] MEDS ORDERED: AZITHROMYCIN 250 MG TAB (ZITHROMAX) PO ONE (07:30)
[2020-05-04] MEDS ORDERED: VANCOMYCIN INJECTION 1,500 MG in NS IV 500 ML 500 ML IV ONE (07:45)
[2020-05-04] MEDS ORDERED: CEFEPIME INJECTION 1,000 MG in WATER (STERILE) FOR INJECTION 10 ML IV ONE (07:45)
--- NOTE | 2020-05-04 09:25 | NUR ---
MINGO JOSÉ admitted to room 415-1, with an admitting diagnosis of pneumonia, UTI, on 05/04/20 from [facility] ED via wheelchair, accompanied by staff.MINGO JOSÉ introduced to surroundings, call light, bed controls, phone, TV, temperature control, lights, meal times, smoking policy, visitor policy, side rail policy, bathrooms and showers. Patient Rights given to patient in the handbook. MINGO JOSÉ verbalizes understanding that [facility] is not responsible for the loss or damage to any personal effects or valuables that are kept in the patients posession during their hospitalization.
[2020-05-04 10:00] VITALS: BP 113/58
--- NOTE | 2020-05-04 10:45 | NUR ---
Orders rec'd for smoking cessation EDU. Rapport established, Visited with pt about smoking cessation, patient resistant to quit. States, "quit before for six months, and then my nerves just got the better of me." Encouragement and support offered. [facility] classes and Antonio quit information shared, Handout on smoking cessation given, patient takes information and places on bedside table.
[2020-05-04] MEDS: LACTATED RINGERS 1,000 ML IV SCH ×2 (10:57→16:57)
[2020-05-04] MEDS: HYDROcodone/APAP 5 MG/325 MG (LORTAB) TAB PO PRN ×2 (10:57→16:57)
[2020-05-04 11:00] VITALS: BP 131/81
[2020-05-04] MEDS ORDERED: ACETAMINOPHEN 325 MG TABLET PO PRN (11:00)
--- NOTE | 2020-05-04 11:18 | History & Physical-Hospitalist ---
LEONEL HAINES,MED STUDENT 05/04/20 1118: History of Present Illness HPI/Chief Complaint Patient is a 64yo female presenting to [facility] ED via EMS after falling at her home. She reports going outside to smoke this morning when she felt like her legs were getting weak. She was using her walker and says her "legs gave out" and she fell backwards, landing on her right hip. She also hit her head but denies LOC. She recently underwent a right total hip arthroplasty at [facility] due to a fracture from a previous fall and was discharged home yesterday. She denies experiencing dizziness, lightheadedness, syncope, or CP before falling. She complains of right hip pain, lower abdominal pain, and lower back pain, and rates the pain a 9/10. Source: patient Exam Limitations: no limitations Date Seen 05/04/20 Attending Physician Rubio Mae MD PCP No Sparks Referring Physician Date of Admission May 04, 2020 at 08:02 Home Medications & Allergies Home Medications Reviewed patient Home Medication Reconciliation performed by pharmacy medication reconciliations furniture repair technician and/or nursing. Patients Allergies have been reviewed. Allergies Allergies Coded Allergies bacitracin (Verified Allergy, Intermediate, "I BREAK OUT IN A RASH ALL OVER.", 04/20/19) neomycin (Verified Allergy, Intermediate, "I BREAK OUT IN A RASH ALL OVER.", 04/20/19) polymyxin B (Verified Allergy, Intermediate, "I BREAK OUT IN A RASH ALL O LUCY.", 04/20/19) ibuprofen (Verified Allergy, Mild, RASH, 04/20/19) naproxen (Verified Allergy, Mild, RASH, 04/20/19) Past Cfbiefh-Mjllcb-Euidnu Hx Past Med/Social Hx: Reviewed Nursing Past Med/Soc Hx Patient Social History Alcohol Use: Denies Use Recreational Drug Use: No Smoking Status: Current Everyday Smoker Former Smoker, Quit: Dec 05, 2016 Type Used: Cigarettes 2nd Hand Smoke Exposure: Yes Recent Foreign Travel: No Contact w/other who traveled: No Recent Hopitalizations: No Recent Infectious Disease Expo: No Immunizations Up To Date Tetanus Booster (TDap): Unknown Pediatric: No Date of Pneumonia Vaccine: Jan 11, 2019 Date of Influenza Vaccine: Dec 30, 2019 Seasonal Allergies Seasonal Allergies: No Past Medical History Surgeries: Abdominal, Appendectomy, Bladder Surgery, Cardiac, Gallbladder, Joint Replacement, Orthopedic, Pancreatic, Tubal Ligation Respiratory: Asthma, COPD, Emphysema Currently Using CPAP: No Currently Using BIPAP: No Cardiac: Atrial Fibrillation, Coronary Artery Disease, High Cholesterol, Hypertension, Irregular Heartbeat, Palpitations, Peripheral Vascular Neurological: Dementia, Headaches /Migraines, Neuropathy 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: No Sexually Transmitted Disease: No HIV/AIDS: No 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 Disorders: Denies Menopausal Genitourinary: UTI-Chronic Gastrointestinal: Gastroesophageal Reflux, Polyps, Hiatal Hernia, Gall Bladder Disease Musculoskeletal: Arthritis Endocrine: Hypothyroidsim, Diabetes, Non-Insulin dep Are Your Blood Sugars Over 250: No HEENT: Cataract Loss of Vision: Denies Hearing Impairment: Denies Cancer: Bladder Did You Recieve Any Treatments: Yes What Type of Treatment Did You: Surgical Intervention Psychosocial: Anxiety, Depression Skin/Integumentary: Psoriasis History of Blood Disorders: No Adverse Reaction to Blood Rivero: No Family History Cardiovascular disease G8 BROTHER (TRIPLE BYPASS) Diabetes mellitus 19 MOTHER FH: COPD (chronic obstructive pulmonary disease) 19 MOTHER FH: breast cancer 19 MOTHER FHx: brain cancer 19 FATHER No Pertinent Family Hx Review of Systems Constitutional: No dizziness; fever, weakness EENTM: No hearing loss, No vision loss Respiratory: cough, phlegm, short of breath; No wheezing Cardiovascular: No edema; palpitations; No syncope Gastrointestinal: RLQ, LLQ, abdominal pain, nausea; No vomiting Musculoskeletal: see HPI, back pain, joint pain Skin: no symptoms reported Psychiatric/Neurological: Headache; Denies Numbness, Denies Paresthesia, Denies Tingling Physical Exam Physical Exam Vital Signs Vital Signs - First Documented 05/04/20 05/04/20 05/04/20 04:20 09:09 11:00 Temp 36.2 Pulse 122 Resp 20 B/P (MAP) 131/81 (98) Pulse Ox 96 O2 Delivery Nasal Cannula O2 Flow Rate 2.00 FiO2 28 Capillary Refill : Less Than 3 Seconds Height, Weight, BMI Height: 5'4.00" Weight: 165lbs. 0.0oz. 72.749713dl; 27.10 BMI Method:Stated General Appearance: No Apparent Distress, Chronically ill HEENT: PERRL/EOMI, Pharynx Normal Neck: Full Range of Motion, Supple Respiratory: No Accessory Muscle Use, No Respiratory Distress, Decreased Breath Sounds; No Wheezing Cardiovascular: No Edema, No Murmur, Normal Peripheral Pulses, Tachycardia Gastrointestinal: Normal Bowel Sounds, Soft; No Guarding; Tenderness Back: Vertebral Tenderness Extremity: No Calf Tenderness, No Pedal Edema Neurologic/Psychiatric: Alert, Oriented x3 Results Results/Procedures Labs Laboratory Tests 05/04/20 04:45 Patient resulted labs reviewed. Assessment/Plan Assessment and Plan Fall from standing s/p R total hip arthroplasty -no acute fractures or hardware complications on radiograph/CT -s/p bilateral hip arthroplasty -orthopedics consulted -PT and OT LLL pneumonia -on cefepime and Vanc -LR @ 150/hr -check PCT -MRSA screen and cultures pending -incentive spirometry COPD -uses home O2 -on 2L NC NIDDM -hold home medications -sliding scale insulin -continue to monitor SCD's for DVT prophylaxis RUBIO MAE MD 05/04/20 1507: History of Present Illness Time Seen by a Provider: 12:30 Past Uesihaa-Oauske-Khglms Hx Past Med/Social Hx: Reviewed Nursing Past Med/Soc Hx Family History Reviewed Nursing Family Hx Cardiovascular disease G8 BROTHER (TRIPLE BYPASS) Diabetes mellitus 19 MOTHER FH: COPD (chronic obstructive pulmonary disease) 19 MOTHER FH: breast cancer 19 MOTHER FHx: brain cancer 19 FATHER Results Results/Procedures Imaging: Reviewed Imaging Report Assessment/Plan Admission Diagnosis Pneumonia Admission Status: Inpatient Order (span 2 midnights) Reason for Inpatient Admission: see below Assessment and Plan Pt admitted after a fall after recent right total hip arthoplasty. She lives in her own home and had a shcedule hip replacedment 1 week ago at [facility]. She was discharged 2 days ago and this morning stepped out of her house to smoke a cigarette and fell. She was found to have a LLL pna on imaging but a CT of her hip revealed intact hardware. Ortho consulted. PT/OT. Consider IRF. Supervisory-Addendum Brief Verification & Attestation Participated in pt care: history, MDM, physical Personally performed: exam, history, MDM, supervision of care Care discussed with: Medical Student Procedures: n/a Results interpretation: Verified all documentation Verification and Attestation of Medical Student E/M Service A medical student performed and documented this service in my presence. I reviewed and verified all information documented by the medical student and made modifications to such information, when appropriate. I personally performed the physical exam and medical decision making. Rubio Mae, May 04, 2020,14:47 LEONEL HAINES,MED STUDENT May 04, 2020 11:18 RUBIO MAE MD May 04, 2020 15:07
[2020-05-04] MEDS ORDERED: RT-ALBUTEROL SULF 2.5 MG/3 ML PRE-MIX VIAL INH PRN (12:00)
--- NOTE | 2020-05-04 13:00 | NUR ---
Patient reports pain and wants something IV. Dr. Mae notified and placed order for fentanyl 25mcg Q1 PRN
[2020-05-04] MEDS ORDERED: ONDANSETRON 4 MG/2 ML (SDV) Z0FRAN IVP PRN (13:15)
[2020-05-04] MEDS: fentaNYL INJECTION 100 MCG/2 ML AMP IVP PRN ×4 (13:19→21:33)
[2020-05-04] MEDS: CEFEPIME 1,000 MG/SWFI 10 ML IV PUSH IV SCH ×4 (13:20→17:56)
--- NOTE | 2020-05-04 13:30 | NUR ---
Patient reports not having a BM in 3 days and history of impaction. Notified Dr. Mae at this time and she requests Senna BID. Order placed at this time .
--- NOTE | 2020-05-04 14:32 | Physical Therapy Evaluation ---
PT Evaluation-General Medical Diagnosis Admission Date May 04, 2020 at 08:02 Medical Diagnosis: fall/UTI Onset Date: May 04, 2020 Therapy Diagnosis Therapy Diagnosis: debility Height/Weight Height (Feet): 5 Height (Inches): 4.00 Weight (Pounds): 165 Weight (Ounces): 0.0 Precautions Precautions/Isolations: Fall Prevention, Standard Precautions Weight Bear Status Right Lower Extremity: Right Weight Bearing/Tolerated Left Lower Extremity: Left Full Weight Bearing Referral Physician: Carmelita Reason for Referral: Evaluation/Treatment Medical History Pertinent Medical History: Atrial Fib, CAD, COPD, DM, HTN, OA, PVD, Smoking Additional Medical History bilateral THR Current History EMS secondary to fell backwards at home going out to smoke Reviewed History: Yes Social History Home: Single Level Prior Prior Level of Function SCALE: Activities may be completed with or without assistive devices. 1-Byzlefqzad-ptdaokt completes the activity by him/herself with no assistance from a helper. 5-Set-up or Clean-up Assistance-helper sets up or cleans up; patient completes activity. Pyrites assists only prior to or following the activity. 4-Supervision or Touching Assistance-helper provides verbal cues and/or touching/steadying and/or contact guard assistance as patient completes activity. Assistance may be provided throughout the activity or intermittently. 3-Partial/Moderate Assistance-helper does LESS THAN HALF the effort. Pyrites lifts, holds or supports trunk or limbs, but provides less than half the effort. 2-Substantial/Maximal Assistance-helper does MORE THAN HALF the effort. Pyrites lifts or holds trunk or limbs and provides more than half the effort. 1-Scndgzbco-zqalwq does ALL the effort. Patient does none of the effort to complete the activity. Or, the assistance of 2 or more helpers is required for the patient to complete the activity. If activity was not attempted, code reason: 7-Patient Refused. 9-Not Applicable-not attempted and the patient did not perform the activity before the current illness, exacerbation or injury. 10-Not Attempted due to Environmental Limitations-(lack of equipment, weather restraints, etc.). 88-Not Attempted due to Medical Conditions or Safety Concerns. Bed Mobility: 6 Transfers (B,C,W/C): 6 Gait: 6 Stairs: 6 Indoor Mobility (Ambulation): Independent Stairs: Independent Prior Devices Use: Walker PT Evaluation-Current Subjective Patient agrees to PT. No c/o. Pain Numeric Pain Scale: 4 Location: Right Location Body Site: Hip Pain Description: Acute Objective Patient Orientation: Normal For Age Attachments: Oxygen, Suprapubic Catheter, IV ROM/Strength ROM Lower Extremities right hip precautions/left LE WFL Strength Lower Extremities 3+/5 grossly right LE/4/5 grosslyleft LE Integumentary/Posture Integumentary refer to nursing notes Bowel Incontinence: No Bladder Incontinence: No (suprapubic) Posture WFL Neuromuscular (Tone, Coordination, Reflexes) grossly intact Sensory Vision: Wears Glasses Hearing: Functional Sensation Right Lower Extremit: Intact Sensation Left Lower Extremity: Intact Transfers Sit to Lying (QC): 4 Lying to Sitting/Side of Bed(Q: 4 Sit to Stand (QC): 4 Chair/Mbn-cp-Uxqsy Xfer(QC): 4 Toilet Transfer (QC): 4 SBA with all mobility Gait Does the Patient Walk?: Yes Mode of Locomotion: Walk Anticipated Mode of Locomotion: Walk Walk 10 feet (QC): 4 (SBA) Walk 50 ft with 2 Turns(QC): 4 (SBA) Walk 150 ft (QC): 4 (SBA) Distance: 225' Gait Assistive Device: FWW Comments/Gait Description slow and steady with no deviation Balance Sitting Static: Normal Sitting Dynamic: Normal Standing Static: Normal Standing Dynamic: Normal Assessment/Needs 64 y.o. female,will be seen short term by skilled PT to address functional stre ngth and mobility to improve current LOF to safely return to home at maximum LOF. 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 Goals Jail Goals PT Jail Goals Time Frame: May 13, 2020 Roll Left & Right (QC): 6 Sit to Lying (QC): 6 Lying-Sitting on Side/Bed(QC): 6 Sit to Stand (QC): 6 Chair/Qnp-jj-Dkpaz Xfer(QC): 6 Toilet Transfer (QC): 6 Car Transfer (QC): 6 Does the Patient Walk: Yes Walk 10 feet (QC): 6 Walk 50ft with 2 Turns (QC): 6 Walk 150 ft (QC): 6 1 Step (curb) (QC): 6 4 Steps (QC): 6 PT Plan Problem List Problem List: Activity Tolerance Treatment/Plan Treatment Plan: Continue Plan of Care Treatment Plan: Bed Mobility, Education, Functional Activity Allison, Functional Strength, Gait, Safety, Therapeutic Exercise, Transfers Treatment Duration: May 13, 2020 Frequency: 6 times per week Estimated Hrs Per Day: .25 hour per day Patient and/or Family Agrees t: Yes Discharge Recommendations Therapy Discharge Recommendati: Home & Family (home health therapy) Time/GCodes Time In: 1341 Time Out: 1357 Total Billed Treatment Time: 16 Total Billed Treatment 1 visit [facility] 16 min ZOYA HANNON PT May 04, 2020 14:32
[2020-05-04] MEDS: RT-ALBUTEROL SULF 2.5 MG/3 ML PRE-MIX VIAL INH SCH ×3 (14:46→22:41)
--- NOTE | 2020-05-04 14:53 | NUR ---
SPOKE WITH THE PT BUT SHE WAS NOT ABLE TO NAME ANY OF HER MEDICATIONS (THE LAST ADMISSION SHE HAD MULTIPLE ACTIVE MEDS THAT WERE NOT SHOWING ON THE EXT MED HISTORY), THEREFORE I REACHED OUT TO HER PCP VIPIN GOODMAN (CALLED TWICE) TO REQUEST A MEDICATION LIST. AT THIS TIME I STILL HAVE NOT RECEIVED THE MED LIST Addendum: 05/05/20 at 1315 by [facility] SPOKE WITH THE PT (SHE HAD A MED LIST FROM [facility]), CALLED [facility], [facility] MAIL ORDER AND SPOKE WITH DR. GARCIA OFFICE TO COMPLETE THE MED REC WHEN FIRST SPEAKING WITH THE PT SHE TOLD ME SHE HAD CURRENT BOTTLES FOR ALL HER MEDICATIONS OR SHE JUST RAN OUT AND HER MAIL ORDER WAS SENDING A REFILL. HOWEVER WHEN I CALLED HER 2 MAIL ORDER PHARMACIES (PT HAD [facility] UNTIL AND [facility] BEGAN COVERAGE IN ) THERE ARE SOME PRESCRIPTIONS THAT HAVE NOT BEEN FILLED SINCE OCTOBER. THE FOLLOWING ARE FILL DATES THAT ARE NOT SHOWN ON THE EXT MED HISTORY AND ARE PAST DUE FOR REFILLS (I DID INCLUDE THE LAST FILL DATE ON THE MED REC): 06-22-2019 PRIMIDONE 250MG #270/90DS 07-16-2019 DONEPEZIL 10MG #90/90DS 11-01-2019 ABILIFY 10MG #135/90DS 11-04-2019 FUROSEMIDE 20MG #90/90DS 11-04-2019 MEMANTINE #90/90DS 11-04-2019 FARXIGA 5MG #90/90DS 11-04-2019 LEVOCETIRIZINE 5MG #90/90DS WHEN I ASKED THE PT ABOUT THE PAST DUE FILLS AGAIN SHE THEN TOLD ME SHE IS OUT OF REFILLS BUT SHE WILL CALL HER PHARMACY WHEN SHE GETS HOME TO GET A REFILL. I ALSO ASKED ABOUT WHO SHE HAD FOR PHARMACY INSURANCE COVERAGE FROM OCTOBER-FEBRUARY (HOPING THAT THERE WAS ANOTHER MAIL ORDER PHARMACY) BUT PT KEPT NAMING [facility] AND [facility]. OTC MEDS: DOCUSATE VIT D3 VIT B12 VIT C FLONASE PROBIOTIC
--- NOTE | 2020-05-04 15:00 | Occupational Therapy Eval ---
OT Evaluation-General/PLF Medical Diagnosis Admission Date May 04, 2020 at 08:02 Medical Diagnosis: fall/UTI Onset Date: May 04, 2020 Therapy Diagnosis Therapy Diagnosis: decreased ADL status Height/Weight Height (Feet): 5 Height (Inches): 4.00 Weight (Pounds): 165 Weight (Ounces): 0.0 Precautions Precautions/Isolations: Fall Prevention, Standard Precautions Comments R hip precautions Referral Physician: Carmelita Referral Reason: Evaluation/Treatment Medical History Pertinent Medical History: Atrial Fib, CAD, COPD, DM, HTN, OA, PVD, Smoking Current History hip. Pt discharged from hospital 05/03/2020 from previous fall s/p R ZEHRA. ED via EMS 05/04/2020 after fall at home, falling on R Pt did not have any acute fractures or hardware complications from recent falls. Social History Home: Single Level Current Living Status: Significant Other ADL-Prior Level of Function SCALE: Activities may be completed with or without assistive devices. 5-Oorojztygl-uzkrkqx completes the activity by him/herself with no assistance from a helper. 5-Set-up or Clean-up Assistance-helper sets up or cleans up; patient completes activity. Perry assists only prior to or following the activity. 4-Supervision or Touching Assistance-helper provides verbal cues and/or touching/steadying and/or contact guard assistance as patient completes activity. Assistance may be provided throughout the activity or intermittently. 3-Partial/Moderate Assistance-helper does LESS THAN HALF the effort. Perry lifts, holds or supports trunk or limbs, but provides less than half the effort. 2-Substantial/Maximal Assistance-helper does MORE THAN HALF the effort. Perry lifts or holds trunk or limbs and provides more than half the effort. 4-Zkpgabftw-ghjgzv does ALL the effort. Patient does none of the effort to complete the activity. Or, the assistance of 2 or more helpers is required for the patient to complete the activity. If activity was not attempted, code reason: 7-Patient Refused. 9-Not Applicable-not attempted and the patient did not perform the activity before the current illness, exacerbation or injury. 10-Not Attempted due to Environmental Limitations-(lack of equipment, weather restraints, etc.). 88-Not Attempted due to Medical Conditions or Safety Concerns. ADL PLOF Comments Pt reports being independent with bathing, dressing, cooking, and toileting at OF. She used a 4WW for functional mobility. Pt has 53 hour a week assistance with cleaning and some assistance with cooking if she wants it. Her family assists with yard work. Self Care: Independent Functional Cognition: Independent DME/Equipment: Bath Chair, Grab Bars, Tub/Shower DME/Equipment Comments 4WW, FWW OT Current Status Subjective Pt seated in recliner, agreeable to OT evaluation and tx. Pt reports pain in R hip, does not provide rating, nursing aware. Mental Status/Objective Patient Orientation: Person, Place, Time, Situation Attachments: IV, Oxygen, Suprapubic Catheter Current Glasses/Contacts: Yes Hand Dominance: Right Upper Extremity ROM WFL, BUE shoulder flexion to approx 150 degrees, able to touch back of head with hands. Upper Extremity Coordination WFL Upper Extremity Sensation WFL Upper Extremity Strength grossly 4/5 ADL-Treatment Eating (QC): 6 (per pt report) Toileting Hygiene (QC): 1 (Pt just finished toileting with nursing staff, assist with clothing management and hygiene.) Other Treatments Pt seated in recliner, agreeable to OT evaluation and tx. OT educated pt on benefits and purpose of OT, she verbalized understanding. Pt provided information about PLOF and home set up. OT educated pt on safety with ADLS at home, including bath bench vs bath chair. Pt indicates she has a bath chair but may have difficulty getting in/out of tub at the moment. OT also educated pt on energy conservation techniques. When asked if pt has hip precautions, pt replies "no". OT educated pt on hip precautions and OT POC. Post tx, pt seated in recliner, call light in reach and all needs met. Education OT Patient Education: Correct positioning, Energy conservation, Modified ADL techniques, Progress toward Goal/Update tx plan, Purpose of tx/functional activities, Reviewed precautions, Rehab process, Safety issues Teaching Recipient: Patient Teaching Methods: Discussion Response to Teaching: Verbalize Understanding OT Ship Surveyor Goals Ship Surveyor Goals Time Frame: May 12, 2020 Eating (QC): 6 Oral Hygiene (QC): 6 Toileting Hygiene (QC): 4 Shower/Bathe Self (QC): 4 Upper Body Dressing (QC): 5 Lower Body Dressing (QC): 4 On/Off Footwear (QC): 4 Additional Goals: 1-Demonstrate ADL Tasks, 2-Verbalize Understanding, 3- ImproveStrength/Allison 1=Demonstrate adherence to instructed precautions during ADL tasks. 2=Patient will verbalize/demonstrate understanding of assistive devices/modifications for ADL. 3=Patient will improve strength/tolerance for activity to enable patient to perform ADL's. OT Education/Plan Problem List/Assessment Assessment: Decreased Activ Tolerance, Decreased UE Strength, Impaired Funct B alance, Impaired I ADL's, Impaired Self-Care Skills Discharge Recommendations Plan/Recommendations: Continue POC Therapy Discharge Recommendati: Home & Family Equpiment Recommendations-D/C: Extended Bath Bench, Hip Kit Treatment Plan/Plan of Care Patient would benefit from OT for education, treatment and training to promote independence in ADL's, mobility, safety and/or upper extremity function for ADL's. Plan of Care: ADL Retraining, Functional Mobility, UE Funct Exercise/Act Treatment Duration: May 12, 2020 Frequency: 5 times per week Estimated Hrs Per Day: .25 hour per day Rehab Potential: Fair Time/GCodes Start Time: 14:16 Stop Time: 14:27 Total Time Billed (hr/min): 11 Billed Treatment Time 1, WILLEM BRIAN OT May 04, 2020 15:00
--- NOTE | 2020-05-04 15:14 | NUR ---
IRF Evaluation Determination: Denied Chart review complete and it appears the patient is ambulating (225ft, FWW), transferring, completing tqt-tr-jemve and bed mobility with supervision; however, she is dependent with toileting hygiene. Although the patient requires notable help with the stated OT task, she does not require a multidisciplinary approach to rehabilitation. Dr. Mae notified. Thank you for this referral.
[2020-05-04] MEDS ORDERED: NICOTINE 14 MG (NICODERM) PATCH TD NR (15:30)
[2020-05-04 16:24] VITALS: BP 108/63
[2020-05-04] MEDS: inSUlin ASPART (NovoLOG) 1 UNIT/0.01 ML (CHARGE PER UNIT) SC SCH ×2 (16:41→21:07)
--- NOTE | 2020-05-04 17:35 | CONSULTATION REPORT ---
DATE OF SERVICE: INPATIENT CONSULTATION REASON FOR CONSULTATION: Fall, status post right total hip arthroplasty. HISTORY OF PRESENT ILLNESS: The patient is a 64-year-old female who 1 week ago underwent a right total hip arthroplasty at [place] by Dr. Lozano. She was discharged to home, but this morning fell and had complaints of right lower extremity pain. Ultimately, radiographs and CT scan were obtained, which revealed no acute abnormalities. She was, however, found to have pneumonia, for which she was admitted. She reports that her hip is feeling better. PHYSICAL EXAMINATION: Incisions well approximated. She has no pain with knee range of motion. No ecchymosis is noted. Mild pain with internal and external rotation of the hip as expected following total hip arthroplasty. IMPRESSION: Right hip contusion, status post total hip arthroplasty. PLAN: The patient can continue with her physical therapy with weightbearing as tolerated and follow up with Dr. Lozano as scheduled. Thank you for the consultation. Job ID: [id number] DocumentID: [id number] Dictated Date: 05/04/2020 15:58:02 Environmental Educator Date: 05/04/2020 17:34:21 Dictated By: ERIC BROOKE MD
[2020-05-04] MEDS: SENNA W/DOCUSATE (SENOKOT S) TABLET PO SCH (19:25)
[2020-05-04 20:08] VITALS: BP 111/60
[2020-05-04] MEDS ORDERED: AMITRIPTYLINE 50 MG (ELAVIL) TAB PO SCH (21:00)
[2020-05-04] MEDS ORDERED: MIRTAZAPINE 15 MG (REMERON) TAB PO SCH (21:00)
[2020-05-04] MEDS ORDERED: SIMvastatin 20 MG (ZOCOR) TAB PO SCH (21:00)
[2020-05-04] MEDS ORDERED: MONTELUKAST 10 MG (SINGULAIR) TAB PO SCH (21:00)
[2020-05-04] MEDS: APIXABAN 5 MG (ELIQUIS) TABLET PO SCH (21:11)
[2020-05-05 00:07] VITALS: BP 112/56
[2020-05-05] MEDS: LACTATED RINGERS 1,000 ML IV SCH ×2 (00:12→05:28)
[2020-05-05] MEDS: CEFEPIME 1,000 MG/SWFI 10 ML IV PUSH IV SCH ×6 (00:12→11:42)
[2020-05-05] MEDS: fentaNYL INJECTION 100 MCG/2 ML AMP IVP PRN ×2 (01:27→05:24)
[2020-05-05] MEDS: RT-ALBUTEROL SULF 2.5 MG/3 ML PRE-MIX VIAL INH SCH ×3 (01:34→10:46)
[2020-05-05] MEDS: HYDROcodone/APAP 5 MG/325 MG (LORTAB) TAB PO PRN ×2 (02:56→08:25)
[2020-05-05 04:00] VITALS: BP 106/62
[2020-05-05] MEDS: inSUlin ASPART (NovoLOG) 1 UNIT/0.01 ML (CHARGE PER UNIT) SC SCH ×2 (05:24→11:11)
[2020-05-05 06:06] LABS: BASOPHILS % (AUTO) 0 % (0-10); EOSINOPHILS # (AUTO) 0.3 10^3/uL (0.0-0.3); EOSINOPHILS % (AUTO) 5 % (0-10); HEMATOCRIT 31 % (35-52); HEMOGLOBIN 9.8 g/dL (11.5-16.0); LYMPHOCYTES % (AUTO) 16 % (12-44); MEAN CORPUSCULAR HEMOGLOBIN 29 pg (25-34); MEAN CORPUSCULAR HGB CONC 32 g/dL (32-36); MEAN CORPUSCULAR VOLUME 91 fL (80-99); MEAN PLATELET VOLUME 10.2 fL (9.0-12.2); MONOCYTES # (AUTO) 0.7 10^3/uL (0.0-1.0); MONOCYTES % (AUTO) 11 % (0-12); NEUTROPHILS # (AUTO) 4.2 10^3/uL (1.8-7.8); NEUTROPHILS % (AUTO) 67 % (42-75); PLATELET COUNT 263 10^3/uL (130-400); WHITE BLOOD COUNT 6.2 10^3/uL (4.3-11.0)
[2020-05-05 06:10] LABS: ALBUMIN 2.9 GM/DL (3.2-4.5)
[2020-05-05 06:11] LABS: CHLORIDE 107 MMOL/L (98-107); POTASSIUM 3.6 MMOL/L (3.6-5.0); SODIUM 138 MMOL/L (135-145)
[2020-05-05 06:13] LABS: GLUCOSE 106 MG/DL (70-105); TOTAL PROTEIN 5.4 GM/DL (6.4-8.2)
[2020-05-05 06:14] LABS: CARBON DIOXIDE 21 MMOL/L (21-32)
[2020-05-05 06:15] LABS: BILIRUBIN,TOTAL 0.4 MG/DL (0.1-1.0)
[2020-05-05 06:16] LABS: ALKALINE PHOSPHATASE 173 U/L (40-136)
[2020-05-05 06:17] LABS: CREATININE SERUM 0.45 MG/DL (0.60-1.30); GFR ESTIMATED > 60
[2020-05-05 06:18] LABS: BUN/CREATININE RATIO 7
[2020-05-05 06:20] LABS: ALANINE AMINOTRANSFERASE 16 U/L (0-55)
[2020-05-05] MEDS ORDERED: predniSONE 10 MG TAB PO SCH (07:00)
--- NOTE | 2020-05-05 07:54 | Diagnostic Imaging Report ---
INDICATION: Lower respiratory infection Portable chest 6:05 AM Heart size and pulmonary vascularity are normal. Left hemidiaphragm remains partially obscured suggesting possible infiltrate or atelectasis. IMPRESSION: No appreciable change in the chest since previous day. Left hemidiaphragm remains partially obscured suggesting there may be some infiltrate and/or atelectasis. Dictated by: Dictated on workstation # [id number]
[2020-05-05] MEDS ORDERED: VANCOMYCIN 1 GM/NS 250 ML IVPB IV SCH ×2 (08:00)
[2020-05-05 08:15] VITALS: BP 122/59
[2020-05-05] MEDS: APIXABAN 5 MG (ELIQUIS) TABLET PO SCH (08:16)
[2020-05-05] MEDS: SENNA W/DOCUSATE (SENOKOT S) TABLET PO SCH (08:17)
[2020-05-05] MEDS ORDERED: HYDROcodone/APAP 5 MG/325 MG (LORTAB) TAB PO PRN (08:30)
[2020-05-05] MEDS ORDERED: NICOTINE PATCH REMOVAL TP SCH (08:59)
[2020-05-05] MEDS ORDERED: NICOTINE 14 MG (NICODERM) PATCH TD SCH (09:00)
[2020-05-05] MEDS ORDERED: DIGOXIN 0.25 MG (LANOXIN) TAB PO SCH (09:00)
--- NOTE | 2020-05-05 09:38 | Physical Therapy Daily Note ---
PT Daily Note-Current Subjective Patient states, "I hope to go home today." Agrees to PT. Mental Status Patient Orientation: Normal For Age Attachments: Oxygen, Suprapubic Catheter, IV Transfers SCALE: Activities may be completed with or without assistive devices. 0-Lwjeyzgqeb-vfjmybq completes the activity by him/herself with no assistance from a helper. 5-Set-up or Clean-up Assistance-helper sets up or cleans up; patient completes activity. [place] assists only prior to or following the activity. 4-Supervision or Touching Assistance-helper provides verbal cues and/or touching/steadying and/or contact guard assistance as patient completes activity. Assistance may be provided throughout the activity or intermittently. 3-Partial/Moderate Assistance-helper does LESS THAN HALF the effort. [place] lifts, holds or supports trunk or limbs, but provides less than half the effort. 2-Substantial/Maximal Assistance-helper does MORE THAN HALF the effort. [place] lifts or holds trunk or limbs and provides more than half the effort. 3-Rupxbarkn-utcbux does ALL the effort. Patient does none of the effort to complete the activity. Or, the assistance of 2 or more helpers is required for the patient to complete the activity. If activity was not attempted, code reason: 7-Patient Refused. 9-Not Applicable-not attempted and the patient did not perform the activity before the current illness, exacerbation or injury. 10-Not Attempted due to Environmental Limitations-(lack of equipment, weather restraints, etc.). 88-Not Attempted due to Medical Conditions or Safety Concerns. Sit to Stand (QC): 6 Weight Bearing Right Lower Extremity: Right Weight Bearing/Tolerated Left Lower Extremity: Left Full Weight Bearing Gait Training Does the Patient Walk?: Yes Distance: 225' Walk 10 feet (QC): 6 Walk 50 ft with 2 Turns(QC): 6 Walk 150 ft (QC): 6 Gait Assistive Device: FWW reciprocal pattern/no deviation Assessment Patient is up in recliner with needs met. Patient desires to go home. Physician and SW notified. PT Certified Surgical Technologist Goals Custodial Goals PT Certified Surgical Technologist Goals Time Frame: May 13, 2020 Roll Left & Right (QC): 6 Sit to Lying (QC): 6 Lying-Sitting on Side/Bed(QC): 6 Sit to Stand (QC): 6 Chair/Qgk-ug-Slfpd Xfer(QC): 6 Toilet Transfer (QC): 6 Car Transfer (QC): 6 Does the Patient Walk: Yes Walk 10 feet (QC): 6 Walk 50ft with 2 Turns (QC): 6 Walk 150 ft (QC): 6 1 Step (curb) (QC): 6 4 Steps (QC): 6 PT Plan Treatment/Plan Treatment Plan: Continue Plan of Care Treatment Plan: Bed Mobility, Education, Functional Activity Allison, Functional Strength, Gait, Safety, Therapeutic Exercise, Transfers Treatment Duration: May 13, 2020 Frequency: 6 times per week Estimated Hrs Per Day: .25 hour per day Patient and/or Family Agrees t: Yes Time/GCodes Time In: 914 Time Out: 924 Total Billed Treatment Time: 10 Total Billed Treatment 1 visit FA 10 min ZOYA HANNON PT May 05, 2020 09:38
--- NOTE | 2020-05-05 11:35 | Discharge Summary ---
Diagnosis/Chief Complaint Date of Admission May 04, 2020 at 08:02 Date of Discharge Admission Diagnosis Pneumonia Primary Care Lia Griffin DO Discharge Summary Discharge Physical Exam Allergies: Coded Allergies: bacitracin (Verified Allergy, Intermediate, "I BREAK OUT IN A RASH ALL OVER.", 04/20/19) neomycin (Verified Allergy, Intermediate, "I BREAK OUT IN A RASH ALL OVER.", 04/20/19) polymyxin B (Verified Allergy, Intermediate, "I BREAK OUT IN A RASH ALL OVER.", 04/20/19) ibuprofen (Verified Allergy, Mild, RASH, 04/20/19) naproxen (Verified Allergy, Mild, RASH, 04/20/19) Vitals & I&Os Vital Signs Date Time Temp Pulse Resp B/P (MAP) Pulse Ox O2 Delivery O2 Flow Rate FiO2 05/05/20 10:47 95 Nasal Cannula 2.00 05/05/20 08:15 36.6 111 20 122/59 (80) 05/04/20 11:00 28 General Appearance: No Apparent Distress, Chronically ill HEENT: PERRL/EOMI, Pharynx Normal Respiratory: Lungs Clear, No Accessory Muscle Use, No Respiratory Distress Cardiovascular: No Murmur, Normal Peripheral Pulses, Tachycardia Gastrointestinal: Normal Bowel Sounds, Non Tender, Soft Extremity: No Calf Tenderness, No Pedal Edema Skin: Normal Color, Warm/Dry Neurologic/Psychiatric: Alert, Oriented x3 Hospital Course Patient is a 64yo female who presented to [facility] ED via EMS on 05/04 after falling at her home. She recently had a right total hip arthroplasty at [facility] and was discharged home on 05/03. She had gone outside to smoke when her legs gave out and she fell backwards landing on her hip. On presentation she complained of lower abdominal pain, right hip pain and lower back pain. CT and radiographs did not show any acute fractures or hardware complications, however CXR revealed possible LLL pneumonia. She was started on cefepime and vancomycin and admitted. PT and OT evaluated her and determined she was not a candidate for IRF. Orthopedics was consulted, and recommended she continue with PT and weightbearing as tolerated. During her stay she was able to get out of bed and ambulate with her walker, and her pain was better controlled. Repeat CXR showed no significant changes in LLL findings, and she remained afebrile. On day of discharge she expressed her desire to return home. Labs (last 24 hrs) Laboratory Tests 05/04/20 20:29: Glucometer 132H 05/05/20 05:23: Glucometer 121H 05/05/20 05:39: White Blood Count 6.2, Red Blood Count 3.39L, Hemoglobin 9.8L, Hematocrit 31L, Mean Corpuscular Volume 91, Mean Corpuscular Hemoglobin 29, Mean Corpuscular Hemoglobin Concent 32, Red Cell Distribution Width 14.8H, Platelet Count 263, Mean Platelet Volume 10.2, Immature Granulocyte % (Auto) 0, Neutrophils (%) (Auto) 67, Lymphocytes (%) (Auto) 16, Monocytes (%) (Auto) 11, Eosinophils (%) (Auto) 5, Basophils (%) (Auto) 0, Neutrophils # (Auto) 4.2, Lymphocytes # (Auto) 1.0, Monocytes # (Auto) 0.7, Eosinophils # (Auto) 0.3, Basophils # (Auto) 0.0, Immature Granulocyte # (Auto) 0.0, Sodium Level 138, Potassium Level 3.6, Chloride Level 107, Carbon Dioxide Level 21, Anion Gap 10, Blood Urea Nitrogen 3L, Creatinine 0.45L, Estimat Glomerular Filtration Rate > 60, BUN/Creatinine Ratio 7, Glucose Level 106H, Calcium Level 8.0L, Corrected Calcium 8.9, Total Bilirubin 0.4, Aspartate Amino Transf (AST/SGOT) 25, Alanine Aminotransferase (ALT/SGPT) 16, Alkaline Phosphatase 173H, Total Protein 5.4L, Albumin 2.9L 05/05/20 10:52: Glucometer 125H Patient resulted labs reviewed. Pending Labs Laboratory Tests 05/05/20 05:23: Glucometer 121 05/05/20 05:39: White Blood Count 6.2, Red Blood Count 3.39, Hemoglobin 9.8, Hematocrit 31, Mean Corpuscular Volume 91, Mean Corpuscular Hemoglobin 29, Mean Corpuscular Hemoglobin Concent 32, Red Cell Distribution Width 14.8, Platelet Count 263, Mean Platelet Volume 10.2, Immature Granulocyte % (Auto) 0, Neutrophils (%) (Auto) 67, Lymphocytes (%) (Auto) 16, Monocytes (%) (Auto) 11, Eosinophils (%) (Auto) 5, Basophils (%) (Auto) 0, Neutrophils # (Auto) 4.2, Lymphocytes # (Auto) 1.0, Monocytes # (Auto) 0.7, Eosinophils # (Auto) 0.3, Basophils # (Auto) 0.0, Immature Granulocyte # (Auto) 0.0, Sodium Level 138, Potassium Level 3.6, Chloride Level 107, Carbon Dioxide Level 21, Anion Gap 10, Blood Urea Nitrogen 3, Creatinine 0.45, Estimat Glomerular Filtration Rate > 60, BUN/Creatinine Ratio 7, Glucose Level 106, Calcium Level 8.0, Corrected Calcium 8.9, Total Bilirubin 0.4, Aspartate Amino Transf (AST/SGOT) 25, Alanine Aminotransferase (ALT/SGPT) 16, Alkaline Phosphatase 173, Total Protein 5.4, Albumin 2.9 05/05/20 10:52: Glucometer 125 Imaging: Reviewed Imaging Report Discharge Home Medications: Active Scripts Active Meclizine HCl 25 Mg Tablet 25 Mg PO Q6H PRN Reported Prednisone 5 Mg Tablet 5 Mg PO DAILY Trelegy Ellipta 100-62.5-25 (Fluticasone/Umeclidin/Vilanter) 1 Each Blst.w.dev 1 Each IH DAILY LAST FILLED 08-05-2019 #3 DAY SUPPLY Trazodone HCl 100 Mg Tablet 200 Mg PO HS TAKES 2 (100MG) TABS Gabapentin 400 Mg Capsule 800 Mg PO 1800 TAKES 2 (400MG) TABS Gabapentin 400 Mg Capsule 400 Mg PO DAILY Furosemide 20 Mg Tablet 20 Mg PO DAILY Montelukast Sodium 10 Mg Tablet 10 Mg PO HS Probiotic (L.acidoph & Paracasei,B.lactis) 1 Each Capsule 1 Each PO DAILY Vitamin C (Ascorbic Acid) 500 Mg Capsule 500 Mg PO DAILY Vitamin B-12 (Cyanocobalamin (Vitamin B-12)) 1,000 Mcg Tablet 1,000 Mcg PO DAILY Vitamin D3 (Cholecalciferol (Vitamin D3)) 25 Mcg Tablet 50 Mcg PO DAILY Docusate Sodium 100 Mg Tablet 100 Mg PO DAILY Amitriptyline HCl 50 Mg Tablet 50 Mg PO HS Nitroglycerin 0.4 Mg Tab.subl 0.4 Mg SL UD PRN Aimovig Autoinjector (Erenumab-Aooe) 70 Mg/1 Ml Auto.injct 70 Mg MONTHLY Mirtazapine 45 Mg Tablet 45 Mg PO HS Ropinirole HCl 2 Mg Tablet 2 Mg PO HS Fludrocortisone Acetate 0.1 Mg Tab 0.1 Mg PO Q48H Digoxin 250 Mcg Tablet 250 Mcg PO DAILY Clonazepam 1 Mg Tablet 1 Mg PO BID Baclofen 20 Mg Tablet 20 Mg PO TID LAST FILLED 06-01-2019 #270/90 DAY SUPPLY Welchol (Colesevelam HCl) 625 Mg Tablet 937.5 Mg PO QID Mysoline (Primidone) 250 Mg Tablet 250 Mg PO Q8H Sucralfate 1 Gm Tablet 1 Gm PO ACHS Ventolin Hfa (Albuterol Sulfate) 18 Gm Hfa.aer.ad 2 Puff INH QID PRN Pantoprazole Sodium 40 Mg Tablet.dr 40 Mg PO BID Farxiga (Dapagliflozin Propanediol) 5 Mg Tablet 5 Mg PO DAILY Levocetirizine Dihydrochloride 5 Mg Tablet 5 Mg PO DAILY Fluticasone Propionate 16 Gm Two Dot.susp 2 Sprays NS BID PRN Eliquis (Apixaban) 5 Mg Tablet 5 Mg PO BID LAST FILLED 07-28-2019 #180/90 DAY SUPPLY Sertraline HCl 100 Mg Tablet 100 Mg PO DAILY Aripiprazole 10 Mg Tablet 15 Mg PO DAILY TAKES 1 & OF A 10MG TAB Donepezil HCl 10 Mg Tablet 10 Mg PO HS LAST FILLED 07-16-2019 #90 Albuterol Sulfate 2.5 Mg/3 Ml Vial.neb 2.5 Mg NEB Q6H PRN Memantine HCl 10 Mg Tablet 10 Mg PO HS Simvastatin 20 Mg Tablet 20 Mg PO HS Instructions to patient/family Please see electronic discharge instructions given to patient. LEONEL HAINES,MED STUDENT May 05, 2020 11:35
[2020-05-05] MEDS ORDERED: DENO60DI INJ (11:53)
[2020-05-05] MEDS ORDERED: NITR100C10 PO (11:53)
[2020-05-05] MEDS ORDERED: PRD10T PO (11:53)
[2020-05-05] MEDS ORDERED: OMEP20CA18 PO (11:53)
[2020-05-05 12:00] VITALS: BP 116/67
[2020-05-05] MEDS ORDERED: CEFD300C3 PO (12:29)
--- NOTE | 2020-05-05 12:30 | NUR ---
CM/SS: Visited with pt as per plan for discharge related to services and needs. Plan: Pt is from home and has had [facility] into the past and will be resumed. Summary: Pt is eager to return home today. She does have [facility] and it will be resumed. Pt does have a ride home. Pt thanks this worker for getting info to [facility]. This worker will follow up.
--- NOTE | 2020-05-05 12:46 | D/C HH Face to Face Order ---
D/C Face to Face Orders Instructions for Patient Via [facility], Patient Instructions/FollowUp: Please continue to take your medications as written. Please follow up with your primary care doctor to follow up this hospital stay. Physician to follow Patient: Dr Griffin Discharge Diet for Home: No Restrictions Patient Data-Allergies,Ht & Wt Patient Allergies: Coded Allergies: bacitracin (Verified Allergy, Intermediate, "I BREAK OUT IN A RASH ALL OVER.", 04/20/19) neomycin (Verified Allergy, Intermediate, "I BREAK OUT IN A RASH ALL OVER.", 04/20/19) polymyxin B (Verified Allergy, Intermediate, "I BREAK OUT IN A RASH ALL OVER.", 04/20/19) ibuprofen (Verified Allergy, Mild, RASH, 04/20/19) naproxen (Verified Allergy, Mild, RASH, 04/20/19) Height (Feet): 5 Height (Inches): 4.00 Weight (Pounds): 165 Weight (Ounces): 0.0 Home Health Need/Face to Face Date of Face to Face: May 05, 2020 Clinical Findings: Muscle weakness, Shortness of breath I have seen Pt [id number]: Yes Discharged To: Home Diagnosis/Conditions: hip replacement, COPD, pneumonia Patient is Homebound due to: Vivian fall risk due to instabilty, Shortness of breath/distress Homebound Status Due to the above stated illness, injury or surgical procedure (medical condition or diagnosis) and associated clinical findings, the patient is homebound because of his/her inability to leave home except with aid of a supportive device and/or person AND leaving the home requires a considerable and taxing effort or is medically contraindicated. Pt req the following assistanc: Aid of another person, Cane Home Health Nursing Orders Home Health Services Order: Nursing Services, Tube Dispatcher-Evaluate & Treat, Physical Therapy-Evaluate & Treat Home Health Infusion Therapy Line Start Date: May 04, 2020 Therapy Orders Therapy Orders: OT (must have SN or PT order), Physical Therapy Therapy Specific Orders: Eval assistive deivces, Gait training, Increase strength/endurance Certify Stmt I certify that this patient is under my care and that I, a nurse practitioner or a physician; a environmental services assistant working with me, had a face to face encounter that - meets the physician face to face encounter requirements with this patient as dated. RUBIO CARVALHO MD May 05, 2020 12:35
--- NOTE | 2020-05-05 13:05 | NUR ---
DC'D PER WC TO HOME. RX AND INST REVIEWED AND VERBALIZED UNDERSTANDING.
--- NOTE | 2020-05-05 13:10 | NUR ---
"RD ASSESSMENT PMHx: COPD; afib; CAD; hypercholesterolemia; dementia; chronic UTI; GERD; hiatal hernia; DM; hypothyroidism; CA(bladder); PT INTERACTION: Pt was awake and pleasant during nutrition consult for MST score. Note pt has hx of dementia per chart review. Pt states current appetite is not too good. Note avg PO intake 57% x1d, per chart review. Pt states following a regular diet at home, and has no issues with chewing/swallowing food. Pt states some recent issues with diarrhea. Note last BM was 05/04, and pt currently on bowel regimen of senna BID, per chart review. Pt states recent wt loss of 14#, but was unsure of timeframe. Note pt's wt has not changed in 6mon, per chart review. Pt states current DM management is good. Note unable to determine recent HbA1c, per chart review. Given wt hx and PO intake, pt is not at risk for malnutrition at this time per ASPEN guidelines. Est. kcal needs: 1984-9410 kcal | 20-25 kcal/kg Est. Pro needs: 55-69 g Pro | 0.8-1.0 g Pro/kg PES STATEMENT: Inadequate oral intake (NI-2.1) related to loss of appetite, and diarrhea, as evidenced by pt interview, and avg PO intake 57% x1d. INTERVENTION: Continue with current diet order of CHO 60g/m 3snack diet. Pt may benefit from nutrition supplementation if PO intake declines. Did not offer diet education on DM management d/t pt's hx of dementia. Will continue to follow and reassess as pt needs, intake, and status change. S ISIDRO HALLMAN MS RD LD [phone] cell"
== END 2020-05-05 13:07 | disposition home health service (06) | DRG 194 ==
LOC: EDUNIT# 04:20 → ER 04:21 → 4TH 08:02
PROVIDERS: ADMIT Family Medicine; ATTEND Family Medicine
DX: J18.9 Pneumonia, unspecified organism (principal); N39.0 Urinary tract infection, site not specified; K56.7 Ileus, unspecified; J44.0 Chronic obstructive pulmonary disease with (acute) lower respiratory infection; E11.9 Type 2 diabetes mellitus without complications; W18.30XA Fall on same level, unspecified, initial encounter; F17.210 Nicotine dependence, cigarettes, uncomplicated; I48.91 Unspecified atrial fibrillation; I25.10 Atherosclerotic heart disease of native coronary artery without angina pectoris; E78.00 Pure hypercholesterolemia, unspecified; I10 Essential (primary) hypertension; F03.90 Unspecified dementia, unspecified severity, without behavioral disturbance, psychotic disturbance, mood disturbance, and anxiety; G43.909 Migraine, unspecified, not intractable, without status migrainosus; E11.40 Type 2 diabetes mellitus with diabetic neuropathy, unspecified; S70.01XA Contusion of right hip, initial encounter; K21.9 Gastro-esophageal reflux disease without esophagitis; M19.90 Unspecified osteoarthritis, unspecified site; E03.9 Hypothyroidism, unspecified; F41.9 Anxiety disorder, unspecified; F32.9 Major depressive disorder, single episode, unspecified; L40.9 Psoriasis, unspecified; Z96.641 Presence of right artificial hip joint; Z88.1 Allergy status to other antibiotic agents; Z88.8 Allergy status to other drugs, medicaments and biological substances
CPT/HCPCS: 36415; 71045; 72131; 74177; 80053; 81000; 82962; 83605; 84145; 85025; 85610; 85730; 86141; 87040; 87077; 87081; 87088; 87186; 93005; 93041; 94640; 94664; 94760

== ENCOUNTER → 2020-05-11 | Outpatient (CLI) | payer MEDICARE, MEDICAID ==
[~2020-05-11] MED LIST changes: +DENO60DI INJ; +NITR100C10 PO; +OMEP20CA18 PO
--- NOTE | 2020-05-11 08:18 | Diagnostic Imaging Report ---
INDICATION: Right leg pain and swelling. Right leg venous Doppler study was performed in the routine fashion with color flow Doppler and waveform analysis. FINDINGS: The right common femoral vein, superficial femoral vein, popliteal vein and visualized portion of the tibial veins show normal compressibility and venous flow patterns. There is normal augmentation. IMPRESSION: No evidence of deep vein thrombosis of the major veins of the right leg. Dictated by: Dictated on workstation # [id number]
== END ==
LOC: RAD 08:00
PROVIDERS: ATTEND Physician Assistant
DX: M79.89 Other specified soft tissue disorders (principal); M79.604 Pain in right leg

== ENCOUNTER → 2020-06-09 | Outpatient (CLI) | payer MEDICARE, MEDICAID ==
[~2020-06-09] MED LIST changes: +CATHETER FLUSH 10 ML SYR IV PRN; +CHOL-34 PO; -CHOL10002 PO; +ESCI-2 PO; -ESCI10TA64 PO; +HOLD METFORMIN - RECEIVED CONTRAST 20 ML VIAL IV SCH; +IOHEXOL 350 MG/ML 100 ML (OMNIPAQUE 350) VIAL IV ONE; -METO10TA3 PO; +MONT10TA32 PO; -MONT10TA97 PO; +MTC10T PO; +NS 100 ML (IVPB) BAG IV ONE; +SERT-413 PO; +SERT-414 PO; -SERT100T8 PO; -SERT50TA9 PO
[2020-06-09 09:46] LABS: BUN/CREATININE RATIO 11; CREATININE SERUM 0.63 MG/DL (0.60-1.30); GFR ESTIMATED > 60
--- NOTE | 2020-06-09 11:55 | Diagnostic Imaging Report ---
EXAMINATION: CT Chest with intravenous contrast. TECHNIQUE: Multiple contiguous axial images were obtained through the chest after the uneventful administration of intravenous contrast. All CT scans use one or more of the following dose optimizing techniques: automated exposure control, MA and/or KvP adjustment based on a patient size and exam type, or iterative reconstruction. HISTORY: COPD COMPARISON: 04/13/2019 FINDINGS: There is no edema or pneumonia. No pleural effusion. No pneumothorax. No suspicious nodules. Lungs are moderate severely emphysematous. Left lower lobe tree-in-bud nodules have resolved with small amount of scarring remaining. There is no axillary or supraclavicular lymphadenopathy. There is no mediastinal lymphadenopathy. Heart size is normal. There are moderate coronary artery calcifications. No pericardial effusion. Aorta is normal in caliber. Limited views of the upper abdomen are unremarkable. There are no suspicious osseous lesions. IMPRESSION: 1. No acute abnormality in the chest. Mild scarring left lower lobe is likely related to prior infection. Dictated by: Dictated on workstation # [id number]
== END ==
LOC: RAD 09:10
PROVIDERS: ATTEND Nurse Practitioner Family
DX: J44.9 Chronic obstructive pulmonary disease, unspecified (principal)
CPT/HCPCS: 36415; 71260; 82565; 84520

== ENCOUNTER 2020-06-16 10:28 | Outpatient (RCR) | payer MEDICARE, MEDICAID ==
[~2020-06-16 10:28] MED LIST changes: -CATHETER FLUSH 10 ML SYR IV PRN; -HOLD METFORMIN - RECEIVED CONTRAST 20 ML VIAL IV SCH; -IOHEXOL 350 MG/ML 100 ML (OMNIPAQUE 350) VIAL IV ONE; -NS 100 ML (IVPB) BAG IV ONE
== END 2020-06-16 11:15 | disposition home or self-care (01) ==
PROVIDERS: ATTEND Orthopaedic Surgery
DX: Z96.641 Presence of right artificial hip joint (principal)

== ENCOUNTER 2020-06-26 20:04 | Emergency (ER) | payer MEDICARE, MEDICAID ==
[~2020-06-26] VITALS: Ht 160 cm; Wt 68.6 kg
[2020-06-26] MEDS ORDERED: ONDANSETRON 4 MG/2 ML (SDV) Z0FRAN IVP ONE ×2 (20:30→22:30)
[2020-06-26] MEDS ORDERED: PANTOPRAZOLE 40 MG (PROTONIX) VIAL IV ONE (20:30)
--- NOTE | 2020-06-26 20:32 | ED GI ---
General Stated Complaint: BLACK STOOL/NAUSEA Source of Information: Patient Exam Limitations: No Limitations History of Present Illness Date Seen by Provider: Jun 26, 2020 Time Seen by Provider: 20:20 Initial Comments The patient arrives to the ER by private conveyance from home with chief complaint that shortly after getting home from a stress test at [facility] today ordered by Dr. Verde she noticed dark black tarry stools. She had several bouts of diarrhea x5 and passed a large bright red blood clots approximately 4 inches in diameter. She is on Eliquis for atrial fibrillation. She has a urostomy secondary to bladder cancer but has not been having problems with that. No cough fever or chills. She does have worse exertional dyspnea. She has had to have blood transfusions in the past related to her myriad abdominal surgeries. She is had gallbladder, hiatal hernia repair, urological, knees, back etc. No significant pain. Mild nausea but no vomiting. She has not taken any iron or Pepto-Bismol or other medications that might of stained her bowels. She has had colonoscopy although not recently. She has a primary care provider at [place], [place]. She has COPD on oxygen 2 L typically throughout the day. Patient is having some 7-8 out of 10 cramping intermittent abdominal pain mid umbilical. Allergies and Home Medications Allergies Coded Allergies: bacitracin (Verified Allergy, Intermediate, "I BREAK OUT IN A RASH ALL OV ER.", 04/20/19) neomycin (Verified Allergy, Intermediate, "I BREAK OUT IN A RASH ALL OVER.", 04/20/19) polymyxin B (Verified Allergy, Intermediate, "I BREAK OUT IN A RASH ALL OVER.", 04/20/19) ibuprofen (Verified Allergy, Mild, RASH, 04/20/19) naproxen (Verified Allergy, Mild, RASH, 04/20/19) Home Medications Albuterol Sulfate 2.5 Mg/3 Ml Vial.neb, 2.5 MG NEB Q6H PRN for SHORTNESS OF BREATH, (Reported) Albuterol Sulfate 18 Gm Hfa.aer.ad, 2 PUFF INH QID PRN for SHORTNESS OF BREATH, (Reported) Amitriptyline HCl 50 Mg Tablet, 50 MG PO HS, (Reported) Apixaban 5 Mg Tablet, 5 MG PO BID, (Reported) Aripiprazole 10 Mg Tablet, 15 MG PO DAILY, (Reported) TAKES 1 & OF A 10MG TAB LAST FILLED 11-01-2019 #135/90 DAY SUPPLY Ascorbic Acid 500 Mg Capsule, 500 MG PO DAILY, (Reported) Baclofen 20 Mg Tablet, 20 MG PO TID, (Reported) LAST FILLED 06-01-2019 #270/90 DAY SUPPLY Cefdinir 300 Mg Capsule, 300 MG PO BID Prescribed by: RUBIO CARVALHO on 05/05/20 3950 Cholecalciferol (Vitamin D3) 25 Mcg Tablet, 50 MCG PO DAILY, (Reported) Clonazepam 1 Mg Tablet, 1 MG PO BID, (Reported) Cyanocobalamin (Vitamin B-12) 1,000 Mcg Tablet, 1,000 MCG PO DAILY, (Reported) Dapagliflozin Propanediol 5 Mg Tablet, 5 MG PO DAILY, (Reported) LAST FILLED 11-04-2019 #90/90 DAY SUPPLY Denosumab 60 Mg/1 Ml Disp.syrin, 60 MG INJ EVERY 6 MONTHS, (Reported) Digoxin 250 Mcg Tablet, 250 MCG PO DAILY, (Reported) Docusate Sodium 100 Mg Tablet, 100 MG PO DAILY, (Reported) Donepezil HCl 10 Mg Tablet, 10 MG PO HS, (Reported) LAST FILLED 07-16-2019 #90 Erenumab-Aooe 70 Mg/1 Ml Auto.injct, 70 MG MONTHLY, (Reported) Fludrocortisone Acetate 0.1 Mg Tab, 0.1 MG PO Q48H, (Reported) Fluticasone Propionate 16 Gm [place].susp, 2 SPRAYS NS BID PRN for ALLERGIES, (Reported) Fluticasone/Umeclidin/Vilanter 1 Each Blst.w.dev, 1 EACH IH DAILY, (Reported) Furosemide 20 Mg Tablet, 20 MG PO DAILY, (Reported) LAST FILLED 11-04-2019 #90/90 DAY SUPPLY L.acidoph & Paracasei,B.lactis 1 Each Capsule, 1 EACH PO DAILY, (Reported) Levocetirizine Dihydrochloride 5 Mg Tablet, 5 MG PO DAILY, (Reported) LAST FILLED 11-04-2019 #90/90 DAY SUPPLY Memantine HCl 10 Mg Tablet, 10 MG PO HS, (Reported) LAST FILLED 11-01-2019 #90/90 DAY SUPPLY Mirtazapine 45 Mg Tablet, 45 MG PO HS, (Reported) Montelukast Sodium 10 Mg Tablet, 10 MG PO HS, (Reported) Nitrofurantoin Monohyd/M-Cryst 100 Mg Capsule, 1 EA PO DAILY, (Reported) Nitroglycerin 0.4 Mg Tab.subl, 0.4 MG SL UD PRN for CHEST PAIN (ANGINA), (Reported) Omeprazole 20 Mg Capsule.dr, 20 MG PO DAILY, (Reported) Pantoprazole Sodium 40 Mg Tablet.dr, 40 MG PO BID, (Reported) Prednisone 10 Mg Tab, 10 MG PO DAILY, (Reported) Primidone 250 Mg Tablet, 250 MG PO Q8H, (Reported) LAST FILLED 06-22-2019 #270/90 DAY SUPPLY Ropinirole HCl 2 Mg Tablet, 2 MG PO HS, (Reported) Sertraline HCl 100 Mg Tablet, 100 MG PO DAILY, (Reported) LAST FILLED 12-08-2019 #30/30 DAY SUPPLY Simvastatin 20 Mg Tablet, 20 MG PO HS, (Reported) Trazodone HCl 100 Mg Tablet, 200 MG PO HS, (Reported) TAKES 2 (100MG) TABS Patient Home Medication List Home Medication List Reviewed: Yes Review of Systems Review of Systems Constitutional: No chills, No diaphoresis EENTM: No Blurred Vision, No Double Vision Respiratory: Denies Cough, Denies Shortness of Air; SOA With Exertion Cardiovascular: Denies Chest Pain, Denies Lightheadedness Gastrointestinal: Denies Abdominal Pain, Denies Constipated; Diarrhea, Rectal Bleeding, Other (Denies histories or fissures) Genitourinary: Denies Burning, Denies Discharge Musculoskeletal: No back pain, No joint pain All Other Systems Reviewed Negative Unless Noted: Yes Past [id number]-[id number] Hx Patient Social History Alcohol Use: Denies Use Smoking Status: Current Everyday Smoker Type Used: Cigarettes 2nd Hand Smoke Exposure: Yes Recent Hopitalizations: No Immunizations Up To Date Tetanus Booster (TDap): Unknown PED Vaccines UTD: No Date of Pneumonia Vaccine: Jan 11, 2019 Date of Influenza Vaccine: Feb 02, 2020 Seasonal Allergies Seasonal Allergies: No Past Medical History Surgeries: Yes (4 neck surgeries, thumb surgery both hands, bilat carple tunnel, bilat hip) Abdominal, Appendectomy, Bladder Surgery, Cardiac, Gallbladder, Joint Replacement, Orthopedic, Pancreatic, Tubal Ligation Respiratory: Yes (oxygen at night) Asthma, COPD Currently Using CPAP: No Currently Using BIPAP: No Cardiac: Yes Atrial Fibrillation, Coronary Artery Disease, High Cholesterol, Hypertension, Irregular Heartbeat, Palpitations, Peripheral Vascular Neurological: Yes Dementia, Headaches /Migraines, Neuropathy 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 Disorders: No 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 Disorders: Denies 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 Sexually Transmitted Disease: No HIV/AIDS: No Genitourinary: Yes (SUPRAPUBIC CATH STARTED LAST MONTH) UTI-Chronic Gastrointestinal: Yes Gastroesophageal Reflux, Polyps, Hiatal Hernia, Gall Bladder Disease Musculoskeletal: Yes (CBP chronic knee pain, HIP REPLACEMENT 02/08/19) Arthritis Endocrine: Yes Hypothyroidsim, Diabetes, Non-Insulin dep HEENT: Yes (cataracts removed) Cataract Loss of Vision: Denies Hearing Impairment: Denies Cancer: Yes Bladder Did You Recieve Any Treatments: Yes What Type of Treatment Did You: Surgical Intervention Psychosocial: Yes Anxiety, Depression Integumentary: No Psoriasis Blood Disorders: No Adverse Reaction/Blood Tranf: No Family Medical History Cardiovascular disease G8 BROTHER (TRIPLE BYPASS) Diabetes mellitus 19 MOTHER FH: COPD (chronic obstructive pulmonary disease) 19 MOTHER FH: breast cancer 19 MOTHER FHx: brain cancer 19 FATHER No Pertinent Family Hx Physical Exam Vital Signs Vital Signs - First Documented 06/26/20 20:20 Temp 36.9 Pulse 87 Resp 18 B/P (MAP) 134/79 (97) Pulse Ox 98 O2 Delivery Room Air Capillary Refill : Height/Weight/BMI Height: 5'4.00" Weight: 165lbs. 0.0oz. 72.842800te; 27.10 BMI Method:Stated General Appearance: WD/WN, no apparent distress HEENT: PERRL/EOMI, pharynx normal Neck: supple, normal inspection Respiratory: lungs clear, no respiratory distress (Oxygen saturation 98% with nonlabored breathing 18 breaths/min. Room air.), no accessory muscle use Cardiovascular: normal peripheral pulses, regular rate, rhythm, no edema Peripheral Pulses: 2+ Radial Pulses (R), 2+ Radial Pulses (L) Gastrointestinal: normal bowel sounds, non tender, soft Genital/Rectal: heme negative stool, other (No fissure or presenting inflamed hemorrhoids at the rectum. No mass felt in the pelvic vault. Dark black stool, scant amount.) Neurologic/Psychiatric: alert, oriented x 3 Skin: normal color, warm/dry Progress/Results/Core Measures Results/Orders Lab Results Laboratory Tests Test 06/26/20 20:35 Range/Units White Blood Count 9.4 4.3-11.0 10^3/uL Red Blood Count 4.84 3.80-5.11 10^6/uL Hemoglobin 13.5 11.5-16.0 g/dL Hematocrit 43 35-52 % Mean Corpuscular Volume 90 80-99 fL Mean Corpuscular Hemoglobin 28 25-34 pg Mean Corpuscular Hemoglobin Concent 31 L 32-36 g/dL Red Cell Distribution Width 15.4 H 10.0-14.5 % Platelet Count 250 130-400 10^3/uL Mean Platelet Volume 10.1 9.0-12.2 fL Immature Granulocyte % (Auto) 0 % Neutrophils (%) (Auto) 70 42-75 % Lymphocytes (%) (Auto) 19 12-44 % Monocytes (%) (Auto) 8 0-12 % Eosinophils (%) (Auto) 3 0-10 % Basophils (%) (Auto) 0 0-10 % Neutrophils # (Auto) 6.6 1.8-7.8 10^3/uL Lymphocytes # (Auto) 1.8 1.0-4.0 10^3/uL Monocytes # (Auto) 0.8 0.0-1.0 10^3/uL Eosinophils # (Auto) 0.3 0.0-0.3 10^3/uL Basophils # (Auto) 0.0 0.0-0.1 10^3/uL Immature Granulocyte # (Auto) 0.0 0.0-0.1 10^3/uL Sodium Level 135 135-145 MMOL/L Potassium Level 3.7 3.6-5.0 MMOL/L Chloride Level 104 98-107 MMOL/L Carbon Dioxide Level 18 L 21-32 MMOL/L Anion Gap 13 5-14 MMOL/L Blood Urea Nitrogen 12 7-18 MG/DL Creatinine 0.68 0.60-1.30 MG/DL Estimat Glomerular Filtration Rate > 60 BUN/Creatinine Ratio 18 Glucose Level 123 H 70-105 MG/DL Calcium Level 9.6 8.5-10.1 MG/DL Corrected Calcium 9.2 8.5-10.1 MG/DL Total Bilirubin 0.4 0.1-1.0 MG/DL Aspartate Amino Transf (AST/SGOT) 22 5-34 U/L Alanine Aminotransferase (ALT/SGPT) 19 0-55 U/L Alkaline Phosphatase 132 40-136 U/L Total Protein 7.7 6.4-8.2 GM/DL Albumin 4.5 3.2-4.5 GM/DL My Orders Orders - FABIO MERRITT Occult Blood Stool (06/26/20 20:26) Cbc With Automated Diff (06/26/20 20:26) Comprehensive Metabolic Panel (06/26/20 20:26) Pantoprazole Injection (Protonix Injecti (06/26/20 20:30) Ondansetron Injection (Zofran Injectio (06/26/20 20:30) Type And Screen (06/26/20 20:32) Fentanyl Inj (Sublimaze Injection) (06/26/20 21:00) Ct Abdomen/Pelvis W (06/26/20 20:47) Iohexol Injection (Omnipaque 350 Mg/Ml 1 (06/26/20 21:15) Received Contrast (Hold Metformin- Contr (06/26/20 21:15) Sodium Chloride Flush (Catheter Flush Sy (06/26/20 21:15) Ns (Ivpb) (Sodium Chloride 0.9% Ivpb Bag (06/26/20 21:15) Fentanyl Inj (Sublimaze Injection) (06/26/20 21:45) Iohexol Injection (Omnipaque 350 Mg/Ml 1 (06/26/20 22:15) Received Contrast (Hold Metformin- Contr (06/26/20 22:15) Ns (Ivpb) (Sodium Chloride 0.9% Ivpb Bag (06/26/20 22:15) Ondansetron Injection (Zofran Injectio (06/26/20 22:30) Medications Given in ED Current Medications Medications Dose Ordered Sig/[place] Route Start Time Stop Time Status Last Admin Dose Admin Fentanyl Citrate 25 mcg ONCE ONCE IVP 06/26/20 21:45 06/26/20 21:46 DC 06/26/20 22:26 25 MCG Fentanyl Citrate 50 mcg ONCE ONCE IVP 06/26/20 21:00 06/26/20 21:01 DC 06/26/20 20:50 50 MCG Iohexol 100 ml ONCE ONCE IV 06/26/20 22:15 06/26/20 22:35 DC 06/26/20 22:15 100 ML Ondansetron HCl 4 mg ONCE ONCE IVP 06/26/20 20:30 06/26/20 20:31 DC 06/26/20 20:50 4 MG Ondansetron HCl 4 mg ONCE ONCE IVP 06/26/20 22:30 06/26/20 22:31 DC 06/26/20 22:38 4 MG Pantoprazole 40 mg ONCE ONCE IV 06/26/20 20:30 06/26/20 20:31 DC 06/26/20 20:50 40 MG Sodium Chloride 80 ml ONCE ONCE IV 06/26/20 22:15 06/26/20 22:35 DC 06/26/20 22:15 80 ML Vital Signs/I&O 06/26/20 20:20 Temp 36.9 Pulse 87 Resp 18 B/P (MAP) 134/79 (97) Pulse Ox 98 O2 Delivery Room Air Progress Progress Note #1: Time: 20:32 Progress Note Fecal occult blood test, labs to assess her current hemoglobin, type and screen, pantoprazole 40 mg. She is hemodynamically stable so we will not attempt to reverse the Eliquis at this time. Fentanyl 50 mcg for pain. Progress Note #2: Time: 21:37 Progress Note Fecal occult stool is negative despite getting a good sample. Alternatively may be something she ate tonight. Do not explain the large blood clot she says she passed. Fentanyl did not help her pain much. However because of her respiratory status she is not tolerating the opiates well so we are not going to give her any more at this moment. We will get the CT scan and look for signs of obstipation/blockage colitis etc. Progress Note #3: Time: 23:55 Progress Note The patient is feeling much better and we cannot find any surgical or emergent explanation for her discomfort so were going to encourage her to cleanout with MiraLAX and follow-up with her primary care doctor. Diagnostic Imaging Diagonstic Imaging: CT Plain Films/CT/US/NM/MRI: abdomen, pelvis Comments No specific cause for her abdominal pain or bleeding identified. She is status post cystectomy with loop ileostomy. Rectum is partially obscured by beam hardening artifact from the patient's hip arthroplasties. Reviewed: Reviewed by Me Departure Impression Primary Impression: Abdominal pain Qualified Codes: R10.84 - Generalized abdominal pain Additional Impression: Obstipation Disposition: 01 HOME, SELF-CARE Condition: Stable Departure-Patient Inst. Decision time for Depature: 23:57 Referrals: MELVA MARQUES DO (PCP) Primary Care Physician Patient Instructions: Constipation, Adult (DC) Add. Discharge Instructions: I could not find anything dangerous to explain why you are having abdominal pain. 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 Call your primary care provider in the morning and request a follow-up appointment sometime this week or next for reevaluation. Return to the ER nearest you promptly if you experience worsening pain vomiting or other worrisome symptoms. Scripts Ondansetron (Ondansetron Odt) 4 Mg Tab.rapdis 4 MG PO Q6H PRN for NAUSEA/VOMITING, #8 TAB 0 Refills Prov: FABIO MERRITT 06/26/20 FABIO MERRITT Jun 26, 2020 20:32
[2020-06-26 20:48] LABS: BASOPHILS % (AUTO) 0 % (0-10); EOSINOPHILS # (AUTO) 0.3 10^3/uL (0.0-0.3); EOSINOPHILS % (AUTO) 3 % (0-10); HEMATOCRIT 43 % (35-52); HEMOGLOBIN 13.5 g/dL (11.5-16.0); LYMPHOCYTES # (AUTO) 1.8 10^3/uL (1.0-4.0); LYMPHOCYTES % (AUTO) 19 % (12-44); MEAN CORPUSCULAR HEMOGLOBIN 28 pg (25-34); MEAN CORPUSCULAR HGB CONC 31 g/dL (32-36); MEAN CORPUSCULAR VOLUME 90 fL (80-99); MEAN PLATELET VOLUME 10.1 fL (9.0-12.2); MONOCYTES # (AUTO) 0.8 10^3/uL (0.0-1.0); MONOCYTES % (AUTO) 8 % (0-12); NEUTROPHILS # (AUTO) 6.6 10^3/uL (1.8-7.8); NEUTROPHILS % (AUTO) 70 % (42-75); PLATELET COUNT 250 10^3/uL (130-400); WHITE BLOOD COUNT 9.4 10^3/uL (4.3-11.0)
[2020-06-26 20:58] LABS: ALBUMIN 4.5 GM/DL (3.2-4.5)
[2020-06-26 20:59] LABS: CHLORIDE 104 MMOL/L (98-107); POTASSIUM 3.7 MMOL/L (3.6-5.0); SODIUM 135 MMOL/L (135-145)
[2020-06-26 21:00] LABS: CALCIUM 9.6 MG/DL (8.5-10.1)
[2020-06-26] MEDS ORDERED: fentaNYL INJ 100 MCG/2 ML AMP IVP ONE ×2 (21:00→21:45)
[2020-06-26 21:01] LABS: GLUCOSE 123 MG/DL (70-105); TOTAL PROTEIN 7.7 GM/DL (6.4-8.2)
[2020-06-26 21:02] LABS: CARBON DIOXIDE 18 MMOL/L (21-32)
[2020-06-26 21:03] LABS: BILIRUBIN,TOTAL 0.4 MG/DL (0.1-1.0)
[2020-06-26 21:04] LABS: ALKALINE PHOSPHATASE 132 U/L (40-136); CREATININE SERUM 0.68 MG/DL (0.60-1.30); GFR ESTIMATED > 60
[2020-06-26 21:05] LABS: BUN/CREATININE RATIO 18
[2020-06-26 21:07] LABS: ALANINE AMINOTRANSFERASE 19 U/L (0-55)
[2020-06-26] MEDS ORDERED: IOHEXOL 350 MG/ML 100 ML (OMNIPAQUE 350) VIAL IV ONE ×2 (21:15→22:15)
[2020-06-26] MEDS ORDERED: NS 100 ML (IVPB) BAG IV ONE ×2 (21:15→22:15)
[2020-06-26] MEDS ORDERED: HOLD METFORMIN - RECEIVED CONTRAST 20 ML VIAL IV SCH ×2 (21:15→22:15)
[2020-06-26] MEDS ORDERED: CATHETER FLUSH 10 ML SYR IV PRN (21:15)
[2020-06-26] MEDS ORDERED: ONDA4TAB11 PO (23:58)
[2020-06-27 00:12] VITALS: BP 121/72
--- NOTE | 2020-06-27 07:42 | Diagnostic Imaging Report ---
PROCEDURE: CT abdomen and pelvis with contrast. TECHNIQUE: Multiple contiguous axial images were obtained through the abdomen and pelvis after administration of intravenous contrast. Auto Exposure Controls were utilized during the CT exam to meet ALARA standards for radiation dose reduction. All CT scans use one or more of the following dose optimizing techniques: automated exposure control, MA and/or KvP adjustment based on patient size and exam type or iterative reconstruction. INDICATION: Generalized abdominal pain. COMPARISON: Chest 06/09/2020 FINDINGS: New infiltrate is seen in the left lung base posteriorly. The right lung is clear. The gallbladder is surgically absent. Solid organs and vascular structures are stable. There is no free air or free fluid. There is some air-fluid levels in several loops of large bowel. There is a colostomy in the right lower quadrant. The fluid slightly distended bowel loops abut the ostomy wall internally. Findings may represent early partial obstruction versus ileus. Followup is recommended. The uterus is intact. The urinary bladder is likely surgically absent. Osseous structures are stable. IMPRESSION: 1. Mildly fluid distended loops of bowel which appear to be primarily colon and a few small bowel loops. This may represent partial obstruction versus ileus. Cannot exclude stricture of the colostomy of the right anterior abdominal wall. Followup is recommended. 2. Likely surgically absent urinary bladder, surgically absent gallbladder. 3. Suspect new infiltrate left lung base. Dictated by: Dictated on workstation # [id number]
== END 2020-06-27 00:12 | disposition home or self-care (01) ==
LOC: EDUNIT# 20:04 → ER 20:05
DX: R10.84 Generalized abdominal pain (principal); K59.00 Constipation, unspecified; I48.91 Unspecified atrial fibrillation; J44.9 Chronic obstructive pulmonary disease, unspecified; E78.00 Pure hypercholesterolemia, unspecified; F03.90 Unspecified dementia, unspecified severity, without behavioral disturbance, psychotic disturbance, mood disturbance, and anxiety; F32.9 Major depressive disorder, single episode, unspecified; F41.9 Anxiety disorder, unspecified; K21.9 Gastro-esophageal reflux disease without esophagitis; E11.9 Type 2 diabetes mellitus without complications; I10 Essential (primary) hypertension; F17.210 Nicotine dependence, cigarettes, uncomplicated; Z88.1 Allergy status to other antibiotic agents; Z88.6 Allergy status to analgesic agent; Z88.8 Allergy status to other drugs, medicaments and biological substances; Z85.51 Personal history of malignant neoplasm of bladder; Z80.3 Family history of malignant neoplasm of breast; Z80.8 Family history of malignant neoplasm of other organs or systems; Z79.52 Long term (current) use of systemic steroids; Z79.01 Long term (current) use of anticoagulants
CPT/HCPCS: 36415; 74177; 80053; 82274; 85025; 86850; 86900; 86901

== ENCOUNTER 2020-06-28 10:23 | Outpatient (RCR) | payer MEDICARE, MEDICAID ==
[~2020-06-28 10:23] MED LIST changes: -ARIP10TA17 PO; +ARIP10TA55 PO; +ARIP15TA20 PO; -ARIP15TA9 PO; -OMEP40CA27 PO; +OMEP40CA6 PO; +ONDA4TAB11 PO
[2020-09-22] MEDS ORDERED: CEFD300C3 PO (15:41)
[2020-09-22] MEDS ORDERED: HYDR-700 PO (15:41)
== END 2020-09-26 | disposition home or self-care (01) ==
LOC: LAB 10:23
PROVIDERS: ATTEND Family Medicine
DX: R19.7 Diarrhea, unspecified (principal)
CPT/HCPCS: 87015; 87045; 87046; 87077; 87186; 87324; 87449; 87899

== ENCOUNTER → 2020-06-30 | Outpatient (CLI) | payer MEDICARE, MEDICAID ==
[~2020-06-30] MED LIST changes: +ARIP10TA17 PO; -ARIP10TA55 PO; -ARIP15TA20 PO; +ARIP15TA9 PO; +OMEP40CA27 PO; -OMEP40CA6 PO
== END ==
LOC: CARD 12:30
PROVIDERS: ATTEND Internal Medicine Cardiovascular Disease
DX: I51.7 Cardiomegaly (principal)
CPT/HCPCS: 36415; 84484; 93306

== ENCOUNTER 2020-07-01 15:10 | Emergency (ER) | payer MEDICARE, MEDICAID ==
[~2020-07-01] VITALS: Ht 160 cm; Wt 66.2 kg
[2020-07-01 16:00] LABS: BASOPHILS # (AUTO) 0.1 10^3/uL (0.0-0.1); BASOPHILS % (AUTO) 1 % (0-10); EOSINOPHILS # (AUTO) 0.1 10^3/uL (0.0-0.3); EOSINOPHILS % (AUTO) 1 % (0-10); HEMATOCRIT 43 % (35-52); HEMOGLOBIN 13.5 g/dL (11.5-16.0); LYMPHOCYTES # (AUTO) 2.5 10^3/uL (1.0-4.0); LYMPHOCYTES % (AUTO) 29 % (12-44); MEAN CORPUSCULAR HEMOGLOBIN 29 pg (25-34); MEAN CORPUSCULAR HGB CONC 32 g/dL (32-36); MEAN CORPUSCULAR VOLUME 91 fL (80-99); MEAN PLATELET VOLUME 10.1 fL (9.0-12.2); MONOCYTES # (AUTO) 0.7 10^3/uL (0.0-1.0); MONOCYTES % (AUTO) 9 % (0-12); NEUTROPHILS # (AUTO) 5.2 10^3/uL (1.8-7.8); NEUTROPHILS % (AUTO) 60 % (42-75); PLATELET COUNT 297 10^3/uL (130-400); WHITE BLOOD COUNT 8.7 10^3/uL (4.3-11.0)
[2020-07-01] MEDS ORDERED: NS IV 1000 ML 1,000 ML IV SCH (16:00)
[2020-07-01 16:12] LABS: ALBUMIN 4.3 GM/DL (3.2-4.5); CHLORIDE 108 MMOL/L (98-107); POTASSIUM 3.8 MMOL/L (3.6-5.0); SODIUM 140 MMOL/L (135-145)
[2020-07-01 16:13] LABS: CALCIUM 9.5 MG/DL (8.5-10.1)
[2020-07-01 16:14] LABS: GLUCOSE 85 MG/DL (70-105); TOTAL PROTEIN 7.5 GM/DL (6.4-8.2)
[2020-07-01 16:15] LABS: CARBON DIOXIDE 18 MMOL/L (21-32)
[2020-07-01 16:16] LABS: BILIRUBIN,TOTAL 0.2 MG/DL (0.1-1.0)
[2020-07-01 16:18] LABS: ALKALINE PHOSPHATASE 127 U/L (40-136); CREATININE SERUM 0.63 MG/DL (0.60-1.30); GFR ESTIMATED > 60
[2020-07-01 16:19] LABS: BUN/CREATININE RATIO 21
[2020-07-01 16:21] LABS: ALANINE AMINOTRANSFERASE 23 U/L (0-55)
[2020-07-01] MEDS ORDERED: fentaNYL INJ 100 MCG/2 ML AMP IVP STA (16:25)
[2020-07-01 16:37] LABS: BILIRUBIN,URINE NEGATIVE (NEGATIVE); CLARITY,URINE CLOUDY; COLOR,URINE ORANGE; GLUCOSE, URINE (UA) TRACE (NEGATIVE); KETONES,URINE TRACE (NEGATIVE); LEUKOCYTE ESTERASE ,URINE NEGATIVE (NEGATIVE); NITRITE,URINE POSITIVE (NEGATIVE); PROTEIN,URINE 1+ (NEGATIVE)
[2020-07-01 16:46] LABS: BACTERIA,URINE MODERATE /HPF
[2020-07-01 16:57] LABS: AMPHETAMINE SCREEN, URINE NEGATIVE (NEGATIVE); BARBITURATE SCREEN URINE POSITIVE (NEGATIVE); BENZODIAZEPINES SCREEN URINE POSITIVE (NEGATIVE); CANNABINOID SCREEN, URINE NEGATIVE (NEGATIVE); COCAINE SCREEN URINE NEGATIVE (NEGATIVE); METHADONE STAT NEGATIVE (NEGATIVE); METHAMPHETAMINE SCREEN URINE S NEGATIVE (NEGATIVE); OPIATE SCREEN URINE NEGATIVE (NEGATIVE); OXYCODONE STAT NEGATIVE (NEGATIVE); PROPOXYPHENE STAT NEGATIVE (NEGATIVE); TRICYCLIC ANTIDEPRESSANTS SCRE POSITIVE (NEGATIVE)
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
[2020-07-01 17:25] VITALS: BP 128/85
== END 2020-07-01 17:25 | disposition home or self-care (01) ==
LOC: EDUNIT# 15:10 → ER 15:11
DX: A04.72 Enterocolitis due to Clostridium difficile, not specified as recurrent (principal); J44.9 Chronic obstructive pulmonary disease, unspecified; I48.91 Unspecified atrial fibrillation; E78.00 Pure hypercholesterolemia, unspecified; K21.9 Gastro-esophageal reflux disease without esophagitis; F41.9 Anxiety disorder, unspecified; F32.9 Major depressive disorder, single episode, unspecified; I10 Essential (primary) hypertension; E11.9 Type 2 diabetes mellitus without complications; F03.90 Unspecified dementia, unspecified severity, without behavioral disturbance, psychotic disturbance, mood disturbance, and anxiety; G43.909 Migraine, unspecified, not intractable, without status migrainosus; F17.210 Nicotine dependence, cigarettes, uncomplicated; Z88.1 Allergy status to other antibiotic agents; Z88.6 Allergy status to analgesic agent; Z88.8 Allergy status to other drugs, medicaments and biological substances; Z85.51 Personal history of malignant neoplasm of bladder; Z79.01 Long term (current) use of anticoagulants; Z79.52 Long term (current) use of systemic steroids
CPT/HCPCS: 36415; 80053; 80306; 81000; 85025; 87088

== ENCOUNTER 2020-09-22 10:28 | Emergency (ER) | payer MEDICARE, MEDICAID ==
[~2020-09-22] VITALS: Ht 160 cm; Wt 66.0 kg
[2020-09-22] MEDS ORDERED: ONDANSETRON 4 MG/2 ML (SDV) Z0FRAN IVP ONE ×2 (11:00→13:00)
[2020-09-22 11:04] LABS: BASOPHILS % (AUTO) 1 % (0-10); EOSINOPHILS # (AUTO) 0.1 10^3/uL (0.0-0.3); EOSINOPHILS % (AUTO) 2 % (0-10); HEMATOCRIT 41 % (35-52); HEMOGLOBIN 13.1 g/dL (11.5-16.0); LYMPHOCYTES # (AUTO) 1.4 10^3/uL (1.0-4.0); LYMPHOCYTES % (AUTO) 21 % (12-44); MEAN CORPUSCULAR HEMOGLOBIN 29 pg (25-34); MEAN CORPUSCULAR HGB CONC 32 g/dL (32-36); MEAN CORPUSCULAR VOLUME 91 fL (80-99); MEAN PLATELET VOLUME 10.5 fL (9.0-12.2); MONOCYTES # (AUTO) 0.4 10^3/uL (0.0-1.0); MONOCYTES % (AUTO) 6 % (0-12); NEUTROPHILS # (AUTO) 4.6 10^3/uL (1.8-7.8); NEUTROPHILS % (AUTO) 70 % (42-75); PLATELET COUNT 207 10^3/uL (130-400); WHITE BLOOD COUNT 6.6 10^3/uL (4.3-11.0)
[2020-09-22 11:18] LABS: CHLORIDE 108 MMOL/L (98-107); POTASSIUM 4.6 MMOL/L (3.6-5.0); SODIUM 137 MMOL/L (135-145)
[2020-09-22 11:19] LABS: CALCIUM 9.3 MG/DL (8.5-10.1)
[2020-09-22 11:20] LABS: GLUCOSE 130 MG/DL (70-105)
[2020-09-22 11:21] LABS: CARBON DIOXIDE 17 MMOL/L (21-32)
[2020-09-22 11:22] LABS: BILIRUBIN,TOTAL 0.2 MG/DL (0.1-1.0)
[2020-09-22 11:23] LABS: ALKALINE PHOSPHATASE 93 U/L (40-136)
[2020-09-22 11:24] LABS: CREATININE SERUM 0.66 MG/DL (0.60-1.30); GFR ESTIMATED > 60
[2020-09-22 11:25] LABS: BUN/CREATININE RATIO 21; INR 0.9 (0.8-1.4); PROTHROMBIN TIME PATIENT 12.3 SEC (12.2-14.7)
[2020-09-22 11:27] LABS: ALANINE AMINOTRANSFERASE 28 U/L (0-55)
[2020-09-22 11:34] LABS: BILIRUBIN,URINE NEGATIVE (NEGATIVE); CLARITY,URINE CLEAR; COLOR,URINE YELLOW; GLUCOSE, URINE (UA) 1+ (NEGATIVE); KETONES,URINE NEGATIVE (NEGATIVE); LEUKOCYTE ESTERASE ,URINE NEGATIVE (NEGATIVE); NITRITE,URINE POSITIVE (NEGATIVE); PROTEIN,URINE NEGATIVE (NEGATIVE)
[2020-09-22 11:43] LABS: BACTERIA,URINE FEW /HPF; WBC,URINE 0-2 /HPF
[2020-09-22] MEDS ORDERED: fentaNYL INJ 100 MCG/2 ML AMP IVP ONE (12:00)
[2020-09-22] MEDS ORDERED: IOHEXOL 350 MG/ML 100 ML (OMNIPAQUE 350) VIAL IV ONE (12:15)
[2020-09-22] MEDS ORDERED: HOLD METFORMIN - RECEIVED CONTRAST 20 ML VIAL IV SCH (12:15)
[2020-09-22] MEDS ORDERED: NS 100 ML (IVPB) BAG IV ONE (12:15)
--- NOTE | 2020-09-22 12:26 | Diagnostic Imaging Report ---
Indication: Chest pain Portable chest 11:59 AM Heart size and pulmonary vascularity are normal. Lungs are clear. There are no effusions or pneumothoraces. IMPRESSION: Negative chest Dictated by: Dictated on workstation # [id number]
--- NOTE | 2020-09-22 12:52 | Diagnostic Imaging Report ---
PROCEDURE: CT angiography of the chest with contrast. TECHNIQUE: Multiple contiguous axial images were obtained through the chest after uneventful bolus administration of intravenous contrast. 3D reconstructed CTA MIP acquisitions were also performed. Auto Exposure Controls were utilized during the CT exam to meet ALARA standards for radiation dose reduction. DATE: September 22, 2020. COMPARISON: Chest radiograph September 22, 2020. CT chest June 2020. INDICATION: 55-year-old female, chest pain. Concern for pulmonary embolus. Weakness. FINDINGS: There is no identified pulmonary nodule or lung mass. There are upper lobe predominant findings of emphysema. There is opacification within left lower lobe bronchi and nonspecific additional left lower lobe airspace consolidation. There are dependent opacities in the right lower lobe most likely reflecting atelectasis. There is no pneumothorax. There is no pleural effusion. There is no identified pulmonary embolus. The main pulmonary artery diameter measures 2.7 cm which is within normal limits. The heart is not enlarged. There is no pericardial effusion. There are atherosclerotic and coronary artery calcifications. There is no identified abnormally enlarged mediastinal, hilar, or axillary lymph node meeting CT size criteria for adenopathy. There is a prominent left extrarenal pelvis without devika hydronephrosis. The common bile duct measures 10 mm in diameter. There is no gross dilation of the main pancreatic duct. The gallbladder appears absent. There is no acute bony abnormality. IMPRESSION: CT CHEST. 1. No identified pulmonary embolus. 2. Nonspecific opacification within the left lower lobe bronchus with additional left lower lobe airspace consolidation likely relating to aspiration and/or pneumonia. 3. Prominent common bile duct diameter up to 10 mm without identified causative etiology. This does appear to be more prominent since June 09, 2020. Correlation with laboratory values and for referrable symptoms is recommended. Dictated by: Dictated on workstation # [id number]
[2020-09-22] MEDS ORDERED: LIDOCAINE 2% VISCOUS 15 ML UDC PO ONE (13:00)
[2020-09-22] MEDS ORDERED: ANTACID SUSP 30 ML UDC (MYLANTA) PO ONE (13:00)
[2020-09-22] MEDS ORDERED: morphine INJ 10 MG/ML 1ML (SYR OR VIAL) IVP STA (13:39)
--- NOTE | 2020-09-22 14:16 | Diagnostic Imaging Report ---
EXAM: CT abdomen and pelvis without intravenous contrast. All CT scans use one or more of the following dose optimizing techniques: automated exposure control, MA and/or KvP adjustment based on patient size and exam type or iterative reconstruction. INDICATION: Abdominal pain with nausea. Patient has had bladder resection with ileal conduit in the right lower quadrant. COMPARISON: 06/26/2020. FINDINGS: IV contrast is present in the collecting system of the kidneys, presumably from previous CT angio of the chest. There is good drainage into the ileal conduit and ostomy bag. The colon shows normal stool and gas pattern. Small bowel shows mildly dilated loops with air-fluid levels noted. The liver appears normal. The gallbladder is absent. The common bile duct is prominent, consistent with post-cholecystectomy state. Common duct measures 10 mm. The pancreas and spleen are normal. The adrenal glands are normal. No free air or free fluid. No intra-abdominal adenopathy of pathologic size. No blastic or lytic bony changes. IMPRESSION: 1. Ileal conduit appears widely patent without evidence of hydronephrosis. 2. Mildly dilated small bowel loops with air-fluid levels, suggesting partial small bowel obstruction. There is normal stool burden noted throughout the colon. Dictated by: Dictated on workstation # [id number]
--- NOTE | 2020-09-22 14:44 | ED Chest Pain ---
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 PT STATES FEELS VERY WEAK STATES HAS MASS ON HEART. PT HAS BLADDER CA AND HAS DEWITT IN PLACE CATCHING URINE. PT STATES HAS DIARRHEA BUT HAS HAD FOR YEARS Nursing Sepsis Screen: No Definite Risk Source: patient, old records Exam Limitations: no limitations History of Present Illness Date Seen by Provider: Sep 22, 2020 Time Seen by Provider: 10:54 Initial Comments This 65-year-old woman presents to the emergency room with chest pain. Pain seems to worsen with inspiration. She denies any fever. She has mild cough. She has chronic diarrhea. 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 She reports having "a mass in my heart". Review of chart notes a negative stress test in August 2019 and a heart cath showing mild nonobstructive CAD in December 2017. Patient later complained of abdominal pain after the chest pain work-up was reviewed with her. Allergies and Home Medications Allergies Coded Allergies: bacitracin (Verified Allergy, Intermediate, "I BREAK OUT IN A RASH ALL OVER.", 04/20/19) neomycin (Verified Allergy, Intermediate, "I BREAK OUT IN A RASH ALL OVER.", 04/20/19) polymyxin B (Verified Allergy, Intermediate, "I BREAK OUT IN A RASH ALL OVER.", 04/20/19) ibuprofen (Verified Allergy, Mild, RASH, 04/20/19) naproxen (Verified Allergy, Mild, RASH, 04/20/19) tramadol (Verified Allergy, Unknown, 07/01/20) Home Medications Albuterol Sulfate 2.5 Mg/3 Ml Vial.neb, 2.5 MG NEB Q6H PRN for SHORTNESS OF BREATH, (Reported) Albuterol Sulfate 18 Gm Hfa.aer.ad, 2 PUFF INH QID PRN for SHORTNESS OF BREATH, (Reported) Amitriptyline HCl 50 Mg Tablet, 50 MG PO HS, (Reported) Apixaban 5 Mg Tablet, 5 MG PO BID, (Reported) Aripiprazole 10 Mg Tablet, 15 MG PO DAILY, (Reported) TAKES 1 & OF A 10MG TAB LAST FILLED 11-01-2019 #135/90 DAY SUPPLY Ascorbic Acid 500 Mg Capsule, 500 MG PO DAILY, (Reported) Baclofen 20 Mg Tablet, 20 MG PO TID, (Reported) LAST FILLED 06-01-2019 #270/90 DAY SUPPLY Cefdinir 300 Mg Capsule, 300 MG PO BID Prescribed by: RUBIO CARVALHO on 05/05/20 1229 Cefdinir 300 Mg Capsule, 300 MG PO BID Prescribed by: DAVIDSON RIVERS on 09/22/20 1541 Cholecalciferol (Vitamin D3) 25 Mcg Tablet, 50 MCG PO DAILY, (Reported) Clonazepam 1 Mg Tablet, 1 MG PO BID, (Reported) Cyanocobalamin (Vitamin B-12) 1,000 Mcg Tablet, 1,000 MCG PO DAILY, (Reported) Dapagliflozin Propanediol 5 Mg Tablet, 5 MG PO DAILY, (Reported) LAST FILLED 11-04-2019 #90/90 DAY SUPPLY Denosumab 60 Mg/1 Ml Disp.syrin, 60 MG INJ EVERY 6 MONTHS, (Reported) Digoxin 250 Mcg Tablet, 250 MCG PO DAILY, (Reported) Docusate Sodium 100 Mg Tablet, 100 MG PO DAILY, (Reported) Donepezil HCl 10 Mg Tablet, 10 MG PO HS, (Reported) LAST FILLED 07-16-2019 #90 Erenumab-Aooe 70 Mg/1 Ml Auto.injct, 70 MG MONTHLY, (Reported) Fludrocortisone Acetate 0.1 Mg Tab, 0.1 MG PO Q48H, (Reported) Fluticasone Propionate 16 Gm [place].susp, 2 SPRAYS NS BID PRN for ALLERGIES, (Reported) Fluticasone/Umeclidin/Vilanter 1 Each Blst.w.dev, 1 EACH IH DAILY, (Reported) Furosemide 20 Mg Tablet, 20 MG PO DAILY, (Reported) LAST FILLED 11-04-2019 #90/90 DAY SUPPLY Hydroxyzine HCl 25 Mg Tablet, 0.5 MG PO TID PRN for ITCHING Prescribed by: DAVIDSON RIVERS on 09/22/20 1541 L.acidoph & Paracasei,B.lactis 1 Each Capsule, 1 EACH PO DAILY, (Reported) Levocetirizine Dihydrochloride 5 Mg Tablet, 5 MG PO DAILY, (Reported) LAST FILLED 11-04-2019 #90/90 DAY SUPPLY Memantine HCl 10 Mg Tablet, 10 MG PO HS, (Reported) LAST FILLED 11-01-2019 #90/90 DAY SUPPLY Mirtazapine 45 Mg Tablet, 45 MG PO HS, (Reported) Montelukast Sodium 10 Mg Tablet, 10 MG PO HS, (Reported) Nitrofurantoin Monohyd/M-Cryst 100 Mg Capsule, 1 EA PO DAILY, (Reported) Nitroglycerin 0.4 Mg Tab.subl, 0.4 MG SL UD PRN for CHEST PAIN (ANGINA), (Reported) Omeprazole 20 Mg Capsule.dr, 20 MG PO DAILY, (Reported) Ondansetron 4 Mg Tab.rapdis, 4 MG PO Q6H PRN for NAUSEA/VOMITING Prescribed by: FABIO MERRITT on 06/26/20 2750 Pantoprazole Sodium 40 Mg Tablet.dr, 40 MG PO BID, (Reported) Prednisone 10 Mg Tab, 10 MG PO DAILY, (Reported) Primidone 250 Mg Tablet, 250 MG PO Q8H, (Reported) LAST FILLED 06-22-2019 #270/90 DAY SUPPLY Ropinirole HCl 2 Mg Tablet, 2 MG PO HS, (Reported) Sertraline HCl 100 Mg Tablet, 100 MG PO DAILY, (Reported) LAST FILLED 12-08-2019 #30/30 DAY SUPPLY Simvastatin 20 Mg Tablet, 20 MG PO HS, (Reported) Trazodone HCl 100 Mg Tablet, 200 MG PO HS, (Reported) TAKES 2 (100MG) TABS Patient Home Medication List Home Medication List Reviewed: Yes Review of Systems Review of Systems Constitutional: no symptoms reported EENTM: No Symptoms Reported Respiratory: See HPI Cardiovascular: See HPI Gastrointestinal: See HPI Genitourinary: No Symptoms Reported Musculoskeletal: no symptoms reported Skin: no symptoms reported Psychiatric/Neurological: No Symptoms Reported Endocrine: No Symptoms Reported Hematologic/Lymphatic: No Symptoms Reported Past Iksjtjj-Hnyrwt-[id number] Hx Past Med/Social Hx: Reviewed Nursing Past Med/Soc Hx Patient Social History Alcohol Use: Denies Use Smoking Status: Current Everyday Smoker Type Used: Cigarettes Former Smoker, Quit: Dec 05, 2016 2nd Hand Smoke Exposure: Yes Recent Infectious Disease Expo: No Recent Hopitalizations: No Immunizations Up To Date Tetanus Booster (TDap): Unknown PED Vaccines UTD: No Date of Pneumonia Vaccine: Jan 11, 2019 Date of Influenza Vaccine: Feb 02, 2020 Seasonal Allergies Seasonal Allergies: No Past Medical History Surgeries: Yes (4 neck surgeries, thumb surgery both hands, bilat carple tunnel, bilat hip) Abdominal, Appendectomy, Bladder Surgery, Cardiac, Gallbladder, Joint Replacement, Orthopedic, Pancreatic, Tubal Ligation Respiratory: Yes (oxygen at night) Asthma, COPD Currently Using CPAP: No Currently Using BIPAP: No Cardiac: Yes Atrial Fibrillation, Coronary Artery Disease, High Cholesterol, Hypertension, Irregular Heartbeat, Palpitations, Peripheral Vascular Neurological: Yes Dementia, Headaches /Migraines, Neuropathy 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 Disorders: No 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 Disorders: 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 Sexually Transmitted Disease: No HIV/AIDS: No Genitourinary: Yes (SUPRAPUBIC CATH STARTED LAST MONTH) UTI-Chronic Gastrointestinal: Yes Gastroesophageal Reflux, Polyps, Hiatal Hernia, Gall Bladder Disease Musculoskeletal: Yes (CBP chronic knee pain, HIP REPLACEMENT 02/08/19) Arthritis Endocrine: Yes Hypothyroidsim, Diabetes, Non-Insulin dep HEENT: Yes (cataracts removed) Cataract Loss of Vision: Denies Hearing Impairment: Denies Cancer: Yes Bladder Did You Recieve Any Treatments: Yes What Type of Treatment Did You: Surgical Intervention Psychosocial: Yes Anxiety, Depression Integumentary: No Psoriasis Blood Disorders: No Adverse Reaction/Blood Tranf: No Family Medical History Cardiovascular disease G8 BROTHER (TRIPLE BYPASS) Diabetes mellitus 19 MOTHER FH: COPD (chronic obstructive pulmonary disease) 19 MOTHER FH: breast cancer 19 MOTHER FHx: brain cancer 19 FATHER No Pertinent Family Hx Physical Exam Vital Signs Vital Signs - First Documented 09/22/20 10:35 Temp 36.8 Pulse 87 Resp 18 B/P (MAP) 109/77 (88) Pulse Ox 96 O2 Delivery Room Air Capillary Refill : Less Than 3 Seconds Height, Weight, BMI Height: 5'4.00" Weight: 165lbs. 0.0oz. 72.627112fg; 25.00 BMI Method:Stated General Appearance: WD/WN, Mild Distress HEENT: PERRL/EOMI, Normal ENT Inspection Neck: Normal Inspection Respiratory: Lungs Clear, Normal Breath Sounds, No Accessory Muscle Use, No Respiratory Distress Cardiovascular: Regular Rate, Rhythm, No Edema, No Murmur Gastrointestinal: Normal Bowel Sounds, Soft, Tenderness (Neurolysed) Extremity: Normal Inspection, Non Tender, No Calf Tenderness, No Pedal Edema Neurologic/Psychiatric: Alert, Oriented x3, No Motor/Sensory Deficits, Normal Mood/Affect, ophthalmic photographer II-XII Norm as Tested Skin: Normal Color, Warm/Dry Progress/Results/Core Measures Results/Orders Lab Results Laboratory Tests Test 09/22/20 10:45 09/22/20 10:55 09/22/20 11:28 09/22/20 13:45 Range/Units White Blood Count 6.6 4.3-11.0 10^3/uL Red Blood Count 4.53 3.80-5.11 10^6/uL Hemoglobin 13.1 11.5-16.0 g/dL Hematocrit 41 35-52 % Mean Corpuscular Volume 91 80-99 fL Mean Corpuscular Hemoglobin 29 25-34 pg Mean Corpuscular Hemoglobin Concent 32 32-36 g/dL Red Cell Distribution Width 16.0 H 10.0-14.5 % Platelet Count 207 130-400 10^3/uL Mean Platelet Volume 10.5 9.0-12.2 fL Immature Granulocyte % (Auto) 0 % Neutrophils (%) (Auto) 70 42-75 % Lymphocytes (%) (Auto) 21 12-44 % Monocytes (%) (Auto) 6 0-12 % Eosinophils (%) (Auto) 2 0-10 % Basophils (%) (Auto) 1 0-10 % Neutrophils # (Auto) 4.6 1.8-7.8 10^3/uL Lymphocytes # (Auto) 1.4 1.0-4.0 10^3/uL Monocytes # (Auto) 0.4 0.0-1.0 10^3/uL Eosinophils # (Auto) 0.1 0.0-0.3 10^3/uL Basophils # (Auto) 0.0 0.0-0.1 10^3/uL Immature Granulocyte # (Auto) 0.0 0.0-0.1 10^3/uL Prothrombin Time 12.3 12.2-14.7 SEC INR Comment 0.9 0.8-1.4 Activated Partial Thromboplast Time 20 L 24-35 SEC D-Dimer 0.58 H 0.00-0.49 UG/ML Sodium Level 137 135-145 MMOL/L Potassium Level 4.6 3.6-5.0 MMOL/L Chloride Level 108 H 98-107 MMOL/L Carbon Dioxide Level 17 L 21-32 MMOL/L Anion Gap 12 5-14 MMOL/L Blood Urea Nitrogen 14 7-18 MG/DL Creatinine 0.66 0.60-1.30 MG/DL Estimat Glomerular Filtration Rate > 60 BUN/Creatinine Ratio 21 Glucose Level 130 H 70-105 MG/DL Calcium Level 9.3 8.5-10.1 MG/DL Corrected Calcium 9.3 8.5-10.1 MG/DL Magnesium Level 2.0 1.6-2.4 MG/DL Total Bilirubin 0.2 0.1-1.0 MG/DL Aspartate Amino Transf (AST/SGOT) 28 5-34 U/L Alanine Aminotransferase (ALT/SGPT) 28 0-55 U/L Alkaline Phosphatase 93 40-136 U/L Myoglobin 15.9 10.0-92.0 NG/ML Troponin I < 0.028 < 0.028 <0.028 NG/ML C-Reactive Protein High Sensitivity 1.16 H 0.00-0.50 MG/DL B-Type Natriuretic Peptide 32.3 <100.0 PG/ML Total Protein 7.0 6.4-8.2 GM/DL Albumin 4.0 3.2-4.5 GM/DL Influenza Type A (RT-PCR) Not Detected Not Detecte Influenza Type B (RT-PCR) Not Detected Not Detecte SARS-CoV-2 RNA (RT-PCR) Not Detected Not Detecte Urine Color YELLOW Urine Clarity CLEAR Urine pH 7.0 5-9 Urine Specific Story 1.010 L 1.016-1.022 Urine Protein NEGATIVE NEGATIVE Urine Glucose (UA) 1+ H NEGATIVE Urine Ketones NEGATIVE NEGATIVE Urine Nitrite POSITIVE H NEGATIVE Urine Bilirubin NEGATIVE NEGATIVE Urine Urobilinogen 0.2 < = 1.0 MG/DL Urine Leukocyte Esterase NEGATIVE NEGATIVE Urine RBC (Auto) TRACE-I NEGATIVE Urine RBC NONE /HPF Urine WBC 0-2 /HPF Urine Crystals NONE /LPF Urine Bacteria FEW H /HPF Urine Casts NONE /LPF Urine Mucus NEGATIVE /LPF Urine Culture Indicated YES My Orders Orders - DAVIDSON CORTEZ MD Cbc With Automated Diff (09/22/20 10:54) Magnesium (09/22/20 10:54) Chest 1 View, Ap/Pa Only (09/22/20 10:54) Ekg Tracing (09/22/20 10:54) Comprehensive Metabolic Panel (09/22/20 10:54) Myoglobin Serum (09/22/20 10:54) Protime With Inr (09/22/20 10:54) Partial Thromboplastin Time (09/22/20 10:54) O2 (09/22/20 10:54) Monitor-Rhythm Ecg Trace Only (09/22/20 10:54) Ed Iv/Invasive Line Start (09/22/20 10:54) BNP (09/22/20 10:54) Fibrin Degradation Products (09/22/20 10:54) Troponin I (09/22/20 10:54) Ondansetron Injection (Zofran Injectio (09/22/20 11:00) Covid 19 Inhouse Test (09/22/20 10:54) Influenza A And B By Pcr (09/22/20 10:54) Ua Culture If Indicated (09/22/20 10:56) Hs C Reactive Protein (09/22/20 10:56) Urine Culture (09/22/20 11:28) Fentanyl Inj (Sublimaze Injection) (09/22/20 12:00) Ct Angio Chest W (09/22/20 11:51) Iohexol Injection (Omnipaque 350 Mg/Ml 1 (09/22/20 12:15) Received Contrast (Hold Metformin- Contr (09/22/20 12:15) Ns (Ivpb) (Sodium Chloride 0.9% Ivpb Bag (09/22/20 12:15) Ondansetron Injection (Zofran Injectio (09/22/20 13:00) Lidocaine 2% Viscous 15 Ml (Xylocaine Vi (09/22/20 13:00) Antacid Suspension (Mylanta Suspension (09/22/20 13:00) Troponin I (09/22/20 13:35) Ct Abdomen/Pelvis Wo (09/22/20 13:38) Morphine Injection (Morphine Injection (09/22/20 13:39) Hydroxyzine Cap/Tab (Vistaril) (09/22/20 15:15) Ceftriaxone (Rocephin) (09/22/20 15:15) Medications Given in ED Current Medications Medications Dose Ordered Sig/[place] Route Start Time Stop Time Status Last Admin Dose Admin Al Hydrox/Mg Hydrox/Simethicone 30 ml ONCE ONCE PO 09/22/20 13:00 09/22/20 13:01 DC 09/22/20 13:19 30 ML Ceftriaxone Sodium 1000 mg/ Sterile Water 10 ml @ 200 mls/hr ONCE ONCE IV 09/22/20 15:15 09/22/20 15:17 DC 09/22/20 15:27 200 MLS/HR Fentanyl Citrate 50 mcg ONCE ONCE IVP 09/22/20 12:00 09/22/20 12:01 DC 09/22/20 11:56 50 MCG Hydroxyzine Pamoate 12.5 mg ONCE ONCE PO 09/22/20 15:15 09/22/20 15:16 DC 09/22/20 15:27 12.5 MG Iohexol 100 ml ONCE ONCE IV 09/22/20 12:15 09/22/20 12:16 DC 09/22/20 12:22 62 ML Lidocaine HCl 15 ml ONCE ONCE PO 09/22/20 13:00 09/22/20 13:01 DC 09/22/20 13:20 15 ML Ondansetron HCl 4 mg ONCE ONCE IVP 09/22/20 11:00 09/22/20 11:01 DC 09/22/20 11:18 4 MG Ondansetron HCl 4 mg ONCE ONCE IVP 09/22/20 13:00 09/22/20 13:01 DC 09/22/20 13:20 4 MG Sodium Chloride 100 ml ONCE ONCE IV 09/22/20 12:15 09/22/20 12:16 DC 09/22/20 12:22 80 ML Vital Signs/I&O 09/22/20 09/22/20 09/22/20 10:35 10:35 15:50 Temp 36.8 Pulse 87 64 Resp 18 18 B/P (MAP) 109/77 (88) 102/65 (88) Pulse Ox 96 96 O2 Delivery Room Air Room Air Blood Pressure Mean: 88 Progress Progress Note : Progress Note Chest pain work-up was pursued. Troponin and EKG were unremarkable. D-dimer was positive. CT angiogram of the chest was then obtained. This showed no evidence of DVT. There was questionable aspiration and/or pneumonia in the left lower lung. Patient denies any history of vomiting or choking to cause aspiration. She does have pleuritic chest pain though. After chest pain work- up, patient then complained of abdominal pain I discussed CT as an option for further evaluation. She requested to proceed with CT of the chest. The GI cocktail and other medications previously received did not resolve her pain. Morphine was then given. CT demonstrated some fluid-filled loops of small bowel. This likely did not represent obstruction. Imaging was reviewed with Dr. Avendano. Patient was abruptly improved and requesting to go home after her CT scan was reviewed. She was discharged home with prescriptions. She complained of itching, particularly around her ostomy site. Hydroxyzine was given and prescribed. Initial ECG Impression Date: Sep 22, 2020 Initial ECG Impression Time: 11:22 Initial ECG Rate: 83 Initial ECG Rhythm: Normal Sinus Comment Sinus rhythm with no ST elevation or depression. No abnormal intervals or axis deviation. Diagnostic Imaging Diagonstic Imaging: Xray Plain Films/CT/US/NM/MRI: chest Comments NAME: MINGO JOSÉ [employer] REC#: [id number] PT STATUS: REG ER : 1955 PHYSICIAN: DAVIDSON CORTEZ MD ADMIT DATE: 09/22/20/ER Signed Date of Exam:09/22/20 CHEST 1 VIEW, AP/PA ONLY Indication: Chest pain Portable chest 11:59 AM Heart size and pulmonary vascularity are normal. Lungs are clear. There are no effusions or pneumothoraces. IMPRESSION: Negative chest Dictated by: Dictated on workstation # [id number] Dict: 09/22/20 1224 Trans: 09/22/20 1224 [id number] Interpreted by: CRISTIANE BRICENO MD Electronically signed by: CRISTIANE BRICENO MD 09/22/20 1224 Diagonstic Imaging: CT Plain Films/CT/US/NM/MRI: chest Comments NAME: MINGO JOSÉ [employer] REC#: [id number] PT STATUS: [facility] ER : 1955 PHYSICIAN: DAVIDSON CORTEZ MD ADMIT DATE: 09/22/20/ER Signed Date of Exam:09/22/20 CT ANGIO CHEST W PROCEDURE: CT angiography of the chest with contrast. TECHNIQUE: Multiple contiguous axial images were obtained through the chest after uneventful bolus administration of intravenous contrast. 3D reconstructed CTA MIP acquisitions were also performed. Auto Exposure Controls were utilized during the CT exam to meet ALARA standards for radiation dose reduction. DATE: September 22, 2020. COMPARISON: Chest radiograph September 22, 2020. CT chest June 2020. INDICATION: 55-year-old female, chest pain. Concern for pulmonary embolus. Weakness. FINDINGS: There is no identified pulmonary nodule or lung mass. There are upper lobe predominant findings of emphysema. There is opacification within left lower lobe bronchi and nonspecific additional left lower lobe airspace consolidation. There are dependent opacities in the right lower lobe most likely reflecting atelectasis. There is no pneumothorax. There is no pleural effusion. There is no identified pulmonary embolus. The main pulmonary artery diameter measures 2.7 cm which is within normal limits. The heart is not enlarged. There is no pericardial effusion. There are atherosclerotic and coronary artery calcifications. There is no identified abnormally enlarged mediastinal, hilar, or axillary lymph node meeting CT size criteria for adenopathy. There is a prominent left extrarenal pelvis without devika hydronephrosis. The common bile duct measures 10 mm in diameter. There is no gross dilation of the main pancreatic duct. The gallbladder appears absent. There is no acute bony abnormality. IMPRESSION: CT CHEST. 1. No identified pulmonary embolus. 2. Nonspecific opacification within the left lower lobe bronchus with additional left lower lobe airspace consolidation likely relating to aspiration and/or pneumonia. 3. Prominent common bile duct diameter up to 10 mm without identified causative etiology. This does appear to be more prominent since June 09, 2020. Correlation with laboratory values and for referrable symptoms is recommended. Dictated by: Dictated on workstation # [id number] Dict: 09/22/20 1232 Trans: 09/22/201712 [facility] [id number] Interpreted by: NICOLASA COLEY MD Electronically signed by: NICOLASA COLEY MD 09/22/201712 Diagonstic Imaging: CT Plain Films/CT/US/NM/MRI: abdomen, pelvis Comments NAME: ARNAVMONTRELLMINGO J MED REC#: [id number] PT STATUS: DEP ER : 1955 PHYSICIAN: DAVIDSON CORTEZ MD ADMIT DATE: 09/22/20/ER Signed Date of Exam:09/22/20 CT ABDOMEN/PELVIS WO EXAM: CT abdomen and pelvis without intravenous contrast. All CT scans use one or more of the following dose optimizing techniques: automated exposure control, MA and/or KvP adjustment based on patient size and exam type or iterative reconstruction. INDICATION: Abdominal pain with nausea. Patient has had bladder resection with ileal conduit in the right lower quadrant. COMPARISON: 06/26/2020. FINDINGS: IV contrast is present in the collecting system of the kidneys, presumably from previous CT angio of the chest. There is good drainage into the ileal conduit and ostomy bag. The colon shows normal stool and gas pattern. Small bowel shows mildly dilated loops with air-fluid levels noted. The liver appears normal. The gallbladder is absent. The common bile duct is prominent, consistent with post-cholecystectomy state. Common duct measures 10 mm. The pancreas and spleen are normal. The adrenal glands are normal. No free air or free fluid. No intra-abdominal adenopathy of pathologic size. No blastic or lytic bony changes. IMPRESSION: 1. Ileal conduit appears widely patent without evidence of hydronephrosis. 2. Mildly dilated small bowel loops with air-fluid levels, suggesting partial small bowel obstruction. There is normal stool burden noted throughout the colon. Dictated by: Dictated on workstation # [id number] Dict: 09/22/20 1403 Trans: 09/22/20 1703 [id number] Interpreted by: CAPRI PINEDA MD Electronically signed by: CAPRI PINEDA MD 09/22/20 1703 Departure Impression Primary Impression: Atypical chest pain Additional Impressions: Left lower lobe pulmonary infiltrate Generalized abdominal pain Pruritus Disposition: 01 HOME, SELF-CARE Condition: Improved Departure-Patient Inst. Referrals: VIPIN GOODMAN DO (PCP/Family) Primary Care Physician Patient Instructions: Severe Abdominal Pain, Chest Pain (DC) Add. Discharge Instructions: Follow-up with your primary care provider soon as possible. Start with a clear liquid diet and gradually advance your diet as tolerated. Use your home medications as previously directed. Return to the emergency room if you have worsening symptoms. Hydroxyzine can be used for itching. Complete your antibiotics as prescribed for possible pneumonia and/or aspiration. Call with questions or concerns. All discharge instructions reviewed with patient and/or family. Voiced understanding. Scripts Hydroxyzine HCl (Hydroxyzine HCl) 25 Mg Tablet 0.5 MG PO TID PRN for ITCHING, #10 TAB Prov: DAVIDSON CORTEZ MD 09/22/20 Cefdinir (Cefdinir) 300 Mg Capsule 300 MG PO BID, #14 CAP Prov: DAVIDSON CORTEZ MD 09/22/20 DAVIDSON CORTEZ MD Sep 22, 2020 14:44
[2020-09-22] MEDS ORDERED: cefTRIAXone 1,000 MG in WATER (STERILE) FOR INJECTION 10 ML IV ONE (15:15)
[2020-09-22] MEDS ORDERED: hydrOXYzine (VISTARIL/ATARAX) 25 MG capsule/tablet PO ONE (15:15)
[2020-09-22] MEDS ORDERED: HYDR-700 PO (15:41)
[2020-09-22] MEDS ORDERED: CEFD300C3 PO (15:41)
[2020-09-22 15:50] VITALS: BP 102/65
== END 2020-09-22 15:50 | disposition home or self-care (01) ==
LOC: EDUNIT# 10:28 → ER 10:31
DX: R07.89 Other chest pain (principal); R91.8 Other nonspecific abnormal finding of lung field; R10.84 Generalized abdominal pain; L29.9 Pruritus, unspecified; I10 Essential (primary) hypertension; J44.9 Chronic obstructive pulmonary disease, unspecified; I25.10 Atherosclerotic heart disease of native coronary artery without angina pectoris; I48.91 Unspecified atrial fibrillation; F03.90 Unspecified dementia, unspecified severity, without behavioral disturbance, psychotic disturbance, mood disturbance, and anxiety; K21.9 Gastro-esophageal reflux disease without esophagitis; E78.00 Pure hypercholesterolemia, unspecified; E11.9 Type 2 diabetes mellitus without complications; F41.9 Anxiety disorder, unspecified; F32.9 Major depressive disorder, single episode, unspecified; F17.210 Nicotine dependence, cigarettes, uncomplicated; Z20.822 Contact with and (suspected) exposure to COVID-19; Z79.52 Long term (current) use of systemic steroids; Z79.01 Long term (current) use of anticoagulants; Z79.899 Other long term (current) drug therapy
CPT/HCPCS: 36415; 71045; 71275; 74176; 80053; 81000; 83735; 83874; 83880; 84484; 85025; 85379; 85610; 85730; 86141; 87077; 87088; 87186; 87636; 93005; 93041

== ENCOUNTER 2020-10-05 12:38 | Emergency (ER) | payer MEDICARE, MEDICAID ==
[~2020-10-05] VITALS: Ht 160 cm; Wt 68.0 kg
[~2020-10-05 12:38] MED LIST changes: -ARIP10TA17 PO; +ARIP10TA55 PO; +ARIP15TA20 PO; -ARIP15TA9 PO; -OMEP40CA27 PO; +OMEP40CA6 PO
--- NOTE | 2020-10-05 14:33 | Diagnostic Imaging Report ---
Indication: Constipation. Time of exam: 1:54 PM The heart size is normal. Lungs appear clear of acute infiltrates. There are postoperative changes lower cervical spine. No free air is identified. There is some moderate gaseous distention of small bowel loops in the mid and left abdomen. There does appear to be gas located in the right colon. No significant stool load is identified. No pathological calcifications are seen. There are postop changes involving bilateral hips. Impression: There is some moderate gaseous distention of small bowel loops in the mid and left abdomen. Earlier partial small bowel obstruction cannot be entirely excluded. Continued progress films are recommended. Consideration could be given to performance of a CT of the abdomen and pelvis. Dictated by: Dictated on workstation # [id number]
[2020-10-05] MEDS ORDERED: NS IV 1000 ML 1,000 ML IV STA (14:51)
[2020-10-05] MEDS ORDERED: fentaNYL INJ 100 MCG/2 ML AMP IVP STA ×2 (14:51→16:28)
--- NOTE | 2020-10-05 15:00 | ED Abdominal Pain ---
General Chief Complaint: Abdominal/GI Problems Stated Complaint: ABD PAIN Nursing Triage Note: Pt reports being impacted, states last normal BM was 1 week ago. Pt reports having liquid stool in ED waiting room restroom. Source of Information: Patient Exam Limitations: No Limitations History of Present Illness Date Seen by Provider: Oct 05, 2020 Time Seen by Provider: 13:29 Initial Comments Here with report of concerns of constipation. Patient states that she has not had normal BMs this week. She did take a medication to help relieve the constipation and now she is having some liquid stool. She is complaining of lower abdominal pain. Denies fever or chills. Does have urinary diversion pouch. Does have history of small bowel obstruction. Timing/Duration: 1 Week, Getting Worse Severity/Quality: Moderate, Cramping Location: Other (Lower abdomen) Radiation: No Radiation Modifying Factors: Improves With Defecating; Worsens With Eating Associated Symptoms: No Fever/Chills, No Nausea/Vomiting, No Shortness of Air, No Swelling/Mass in Abdomen, No Weakness Allergies and Home Medications Allergies Coded Allergies: bacitracin (Verified Allergy, Intermediate, "I BREAK OUT IN A RASH ALL OVER.", 04/20/19) neomycin (Verified Allergy, Intermediate, "I BREAK OUT IN A RASH ALL OVER.", 04/20/19) polymyxin B (Verified Allergy, Intermediate, "I BREAK OUT IN A RASH ALL OVER.", 04/20/19) ibuprofen (Verified Allergy, Mild, RASH, 04/20/19) naproxen (Verified Allergy, Mild, RASH, 04/20/19) tramadol (Verified Allergy, Unknown, 07/01/20) Home Medications Albuterol Sulfate 2.5 Mg/3 Ml Vial.neb, 2.5 MG NEB Q6H PRN for SHORTNESS OF BREATH, (Reported) Albuterol Sulfate 18 Gm Hfa.aer.ad, 2 PUFF INH QID PRN for SHORTNESS OF BREATH, (Reported) Amitriptyline HCl 50 Mg Tablet, 50 MG PO HS, (Reported) Apixaban 5 Mg Tablet, 5 MG PO BID, (Reported) Aripiprazole 10 Mg Tablet, 15 MG PO DAILY, (Reported) TAKES 1 & OF A 10MG TAB LAST FILLED 11-01-2019 #135/90 DAY SUPPLY Ascorbic Acid 500 Mg Capsule, 500 MG PO DAILY, (Reported) Baclofen 20 Mg Tablet, 20 MG PO TID, (Reported) LAST FILLED 06-01-2019 #270/90 DAY SUPPLY Cefdinir 300 Mg Capsule, 300 MG PO BID Prescribed by: RUBIO CARVALHO on 05/05/20 1229 Cefdinir 300 Mg Capsule, 300 MG PO BID Prescribed by: DAVIDSON RIVERS on 09/22/20 1541 Cholecalciferol (Vitamin D3) 25 Mcg Tablet, 50 MCG PO DAILY, (Reported) Clonazepam 1 Mg Tablet, 1 MG PO BID, (Reported) Cyanocobalamin (Vitamin B-12) 1,000 Mcg Tablet, 1,000 MCG PO DAILY, (Reported) Dapagliflozin Propanediol 5 Mg Tablet, 5 MG PO DAILY, (Reported) LAST FILLED 11-04-2019 #90/90 DAY SUPPLY Denosumab 60 Mg/1 Ml Disp.syrin, 60 MG INJ EVERY 6 MONTHS, (Reported) Digoxin 250 Mcg Tablet, 250 MCG PO DAILY, (Reported) Docusate Sodium 100 Mg Tablet, 100 MG PO DAILY, (Reported) Donepezil HCl 10 Mg Tablet, 10 MG PO HS, (Reported) LAST FILLED 07-16-2019 #90 Erenumab-Aooe 70 Mg/1 Ml Auto.injct, 70 MG MONTHLY, (Reported) Fludrocortisone Acetate 0.1 Mg Tab, 0.1 MG PO Q48H, (Reported) Fluticasone Propionate 16 Gm [place].susp, 2 SPRAYS NS BID PRN for ALLERGIES, (Reported) Fluticasone/Umeclidin/Vilanter 1 Each Blst.w.dev, 1 EACH IH DAILY, (Reported) Furosemide 20 Mg Tablet, 20 MG PO DAILY, (Reported) LAST FILLED 11-04-2019 #90/90 DAY SUPPLY Hydroxyzine HCl 25 Mg Tablet, 0.5 MG PO TID PRN for ITCHING Prescribed by: DAVIDSON RIVERS on 09/22/20 1541 L.acidoph & Paracasei,B.lactis 1 Each Capsule, 1 EACH PO DAILY, (Reported) Levocetirizine Dihydrochloride 5 Mg Tablet, 5 MG PO DAILY, (Reported) LAST FILLED 11-04-2019 #90/90 DAY SUPPLY Memantine HCl 10 Mg Tablet, 10 MG PO HS, (Reported) LAST FILLED 11-01-2019 #90/90 DAY SUPPLY Mirtazapine 45 Mg Tablet, 45 MG PO HS, (Reported) Montelukast Sodium 10 Mg Tablet, 10 MG PO HS, (Reported) Nitrofurantoin Macrocrystal 100 Mg Capsule, 100 MG PO BID Prescribed by: CRISTIANE MCWILLIAMS on 10/05/20 1800 Nitrofurantoin Monohyd/M-Cryst 100 Mg Capsule, 1 EA PO DAILY, (Reported) Nitroglycerin 0.4 Mg Tab.subl, 0.4 MG SL UD PRN for CHEST PAIN (ANGINA), (Reported) Omeprazole 20 Mg Capsule.dr, 20 MG PO DAILY, (Reported) Ondansetron 4 Mg Tab.rapdis, 4 MG PO Q6H PRN for NAUSEA/VOMITING Prescribed by: FABIO MERRITT on 06/26/202357 Ondansetron 4 Mg Tab.rapdis, 4 MG PO Q6H PRN for NAUSEA/VOMITING Prescribed by: CRISTIANE MCWILLIAMS on 10/05/20 1800 Pantoprazole Sodium 40 Mg Tablet.dr, 40 MG PO BID, (Reported) Prednisone 10 Mg Tab, 10 MG PO DAILY, (Reported) Primidone 250 Mg Tablet, 250 MG PO Q8H, (Reported) LAST FILLED 06-22-2019 #270/90 DAY SUPPLY Ropinirole HCl 2 Mg Tablet, 2 MG PO HS, (Reported) Sertraline HCl 100 Mg Tablet, 100 MG PO DAILY, (Reported) LAST FILLED 12-08-2019 #30/30 DAY SUPPLY Simvastatin 20 Mg Tablet, 20 MG PO HS, (Reported) Trazodone HCl 100 Mg Tablet, 200 MG PO HS, (Reported) TAKES 2 (100MG) TABS Patient Home Medication List Home Medication List Reviewed: Yes Review of Systems Review of Systems Constitutional: No chills, No fever EENTM: No Symptoms Reported Respiratory: No Symptoms Reported Cardiovascular: No Symptoms Reported Gastrointestinal: Abdominal Pain, Constipated, Diarrhea; Denies Nausea, Denies Vomiting Genitourinary: No Symptoms Reported Musculoskeletal: no symptoms reported Skin: no symptoms reported Psychiatric/Neurological: No Symptoms Reported All Other Systems Reviewed Negative Unless Noted: Yes Past Veojykx-Lfwflw-Bsutgn Hx Patient Social History Tobacco Use?: Yes Tobacco type used: Cigarettes Smoking Status: Current Everyday Smoker Substance use?: No Alcohol Use?: No Immunizations Up To Date Tetanus Booster (TDap): Unknown PED Vaccines UTD: No Seasonal Allergies Seasonal Allergies: No Past Medical History Surgery/Hospitalization HX: Pt has urostomy Surgeries: Yes (4 neck surgeries, thumb surgery both hands, bilat carple tunnel, bilat hip) Abdominal, Appendectomy, Bladder Surgery, Cardiac, Gallbladder, Joint Replacement, Orthopedic, Pancreatic, Tubal Ligation Respiratory: Yes (oxygen at night) Asthma, COPD Currently Using CPAP: No Currently Using BIPAP: No Cardiac: Yes Atrial Fibrillation, Coronary Artery Disease, High Cholesterol, Hypertension, Irregular Heartbeat, Palpitations, Peripheral Vascular Neurological: Yes Dementia, Headaches /Migraines, Neuropathy 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 Disorders: No 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 Disorders: Denies [employer]ATOR History: Menopausal Sexually Transmitted Disease: No HIV/AIDS: No Genitourinary: Yes (SUPRAPUBIC CATH STARTED LAST MONTH) UTI-Chronic Gastrointestinal: Yes Gastroesophageal Reflux, Polyps, Hiatal Hernia, Gall Bladder Disease Musculoskeletal: Yes (CBP chronic knee pain, HIP REPLACEMENT 02/08/19) Arthritis Endocrine: Yes Hypothyroidsim, Diabetes, Non-Insulin dep HEENT: Yes (cataracts removed) Cataract Loss of Vision: Denies Hearing Impairment: Denies Cancer: Yes Bladder Did You Recieve Any Treatments: Yes What Type of Treatment Did You: Surgical Intervention Psychosocial: Yes Anxiety, Depression Integumentary: No Psoriasis Blood Disorders: No Adverse Reaction/Blood Tranf: No Family Medical History Reviewed Nursing Family Hx Cardiovascular disease G8 BROTHER (TRIPLE BYPASS) Diabetes mellitus 19 MOTHER FH: COPD (chronic obstructive pulmonary disease) 19 MOTHER FH: breast cancer 19 MOTHER FHx: brain cancer 19 FATHER No Pertinent Family Hx Physical Exam Vital Signs Vital Signs - First Documented 10/05/20 13:05 Temp 36.8 Pulse 82 Resp 18 B/P (MAP) 115/73 (87) Pulse Ox 98 O2 Delivery Room Air Capillary Refill : Height/Weight/BMI Height: 5'4.00" Weight: 165lbs. 0.0oz. [id number]; 26.00 BMI Method:Stated General Appearance: WD/WN, no apparent distress Neck: full range of motion, supple Respiratory: lungs clear, normal breath sounds Cardiovascular: regular rate, rhythm, no murmur Gastrointestinal: soft; No guarding, No rebound; tenderness (Lower abdomen bilateral) Extremities: non-tender, normal inspection Back: normal inspection, no CVA tenderness, no vertebral tenderness Neurologic/Psychiatric: alert, oriented x 3 Skin: normal color, warm/dry Progress/Results/Core Measures Results/Orders Lab Results Laboratory Tests Test 10/05/20 14:59 10/05/20 15:35 Range/Units Urine Color YELLOW Urine Clarity CLEAR Urine pH 7.0 5-9 Urine Specific [place] 1.010 L 1.016-1.022 Urine Protein NEGATIVE NEGATIVE Urine Glucose (UA) NEGATIVE NEGATIVE Urine Ketones NEGATIVE NEGATIVE Urine Nitrite POSITIVE H NEGATIVE Urine Bilirubin NEGATIVE NEGATIVE Urine Urobilinogen 0.2 < = 1.0 MG/DL Urine Leukocyte Esterase NEGATIVE NEGATIVE Urine RBC (Auto) 1+ H NEGATIVE Urine RBC NONE /HPF Urine WBC 5-10 H /HPF Urine Crystals NONE /LPF Urine Bacteria TRACE /HPF Urine Casts NONE /LPF Urine Mucus NEGATIVE /LPF Urine Culture Indicated YES White Blood Count 6.5 4.3-11.0 10^3/uL Red Blood Count 4.50 3.80-5.11 10^6/uL Hemoglobin 12.9 11.5-16.0 g/dL Hematocrit 41 35-52 % Mean Corpuscular Volume 90 80-99 fL Mean Corpuscular Hemoglobin 29 25-34 pg Mean Corpuscular Hemoglobin Concent 32 32-36 g/dL Red Cell Distribution Width 15.4 H 10.0-14.5 % Platelet Count 253 130-400 10^3/uL Mean Platelet Volume 10.4 9.0-12.2 fL Immature Granulocyte % (Auto) 1 % Neutrophils (%) (Auto) 64 42-75 % Lymphocytes (%) (Auto) 25 12-44 % Monocytes (%) (Auto) 9 0-12 % Eosinophils (%) (Auto) 1 0-10 % Basophils (%) (Auto) 1 0-10 % Neutrophils # (Auto) 4.2 1.8-7.8 10^3/uL Lymphocytes # (Auto) 1.6 1.0-4.0 10^3/uL Monocytes # (Auto) 0.6 0.0-1.0 10^3/uL Eosinophils # (Auto) 0.1 0.0-0.3 10^3/uL Basophils # (Auto) 0.0 0.0-0.1 10^3/uL Immature Granulocyte # (Auto) 0.0 0.0-0.1 10^3/uL Sodium Level 141 135-145 MMOL/L Potassium Level 4.3 3.6-5.0 MMOL/L Chloride Level 107 98-107 MMOL/L Carbon Dioxide Level 24 21-32 MMOL/L Anion Gap 10 5-14 MMOL/L Blood Urea Nitrogen 12 7-18 MG/DL Creatinine 0.62 0.60-1.30 MG/DL Estimat Glomerular Filtration Rate > 60 BUN/Creatinine Ratio 19 Glucose Level 96 70-105 MG/DL Calcium Level 9.7 8.5-10.1 MG/DL Corrected Calcium 9.7 8.5-10.1 MG/DL Total Bilirubin 0.2 0.1-1.0 MG/DL Aspartate Amino Transf (AST/SGOT) 40 H 5-34 U/L Alanine Aminotransferase (ALT/SGPT) 45 0-55 U/L Alkaline Phosphatase 93 40-136 U/L C-Reactive Protein High Sensitivity 1.41 H 0.00-0.50 MG/DL Total Protein 7.0 6.4-8.2 GM/DL Albumin 4.0 3.2-4.5 GM/DL My Orders Orders - CRISTIANE MCWILLIAMS MD Acute Abd Series (10/05/20 13:29) Cbc With Automated Diff (10/05/20 14:51) Comprehensive Metabolic Panel (10/05/20 14:51) Hs C Reactive Protein (10/05/20 14:51) Ua Culture If Indicated (10/05/20 14:51) Ns Iv 1000 Ml (Sodium Chloride 0.9%) (10/05/20 14:51) Ed Iv/Invasive Line Start (10/05/20 14:51) Fentanyl Inj (Sublimaze Injection) (10/05/20 14:51) Urine Culture (10/05/20 14:59) Ct Abdomen/Pelvis W (10/05/20 16:00) Iohexol Injection (Omnipaque 350 Mg/Ml 1 (10/05/20 16:30) Received Contrast (Hold Metformin- Contr (10/05/20 16:30) Ns (Ivpb) (Sodium Chloride 0.9% Ivpb Bag (10/05/20 16:30) Fentanyl Inj (Sublimaze Injection) (10/05/20 16:28) Hydrocodone/Apap 5/325 Tablet (Lortab 5 (10/05/20 18:00) Medications Given in ED Current Medications Medications Dose Ordered Sig/[place] Route Start Time Stop Time Status Last Admin Dose Admin Iohexol 100 ml ONCE ONCE IV 10/05/20 16:30 10/05/20 16:31 DC 10/05/20 16:40 85 ML Sodium Chloride 100 ml ONCE ONCE IV 10/05/20 16:30 10/05/20 16:31 DC 10/05/20 16:40 80 ML Vital Signs/I&O 10/05/20 13:05 Temp 36.8 Pulse 82 Resp 18 B/P (MAP) 115/73 (87) Pulse Ox 98 O2 Delivery Room Air Blood Pressure Mean: 87 Progress Progress Note : Progress Note Seen and evaluated. Acute abdominal series ordered. Radiology recommended CT scan. IV and labs ordered with normal saline [address] scan with contrast if possible. This was ordered. 1735: CT scan does not show bowel obstruction. Patient is doing better. We will give 1 hydrocodone 5/325 now and treat for urinary tract infection. This will be done outpatient. She will use [id number] pain medicines afterwards. Discharged home with return precautions. Patient verbalized understanding of instructions and agreement with plan. Diagnostic Imaging Diagonstic Imaging: Xray Plain Films/CT/US/NM/MRI: abdomen Comments [facility]. [place], [place] NAME: MINGO JOSÉ [facility] REC#: [id number] PT STATUS: REG ER : 1955 PHYSICIAN: CRISTIANE MCWILLIAMS MD ADMIT DATE: 10/05/20/ER Draft Date of Exam:10/05/20 ACUTE ABD SERIES Indication: Constipation. Time of exam: 1:54 PM The heart size is normal. Lungs appear clear of acute infiltrates. There are postoperative changes lower cervical spine. No free air is identified. There is some moderate gaseous distention of small bowel loops in the mid and left abdomen. There does appear to be gas located in the right colon. No significant stool load is identified. No pathological calcifications are seen. There are postop changes involving bilateral hips. Impression: There is some moderate gaseous distention of small bowel loops in the mid and left abdomen. Earlier partial small bowel obstruction cannot be entirely excluded. Continued progress films are recommended. Consideration could be given to performance of a CT of the abdomen and pelvis. Dictated on workstation # [id number] Dict: 10/05/20 1425 Trans: 10/05/20 1431 CV [id number] Interpreted by: CHRISTIANNE SERRANO MD Electronically signed by: Departure Impression Primary Impression: Urinary tract infection Qualified Codes: N30.00 - Acute cystitis without hematuria Additional Impression: Lower abdominal pain Disposition: HOME, SELF-CARE Condition: Stable Departure-Patient Inst. Decision time for Depature: 17:58 Referrals: VIPIN GOODMAN DO (PCP/Family) Primary Care Physician Patient Instructions: Abdominal Pain, Adult ED, Urinary Tract Infection, Adult ED Add. Discharge Instructions: All discharge instructions reviewed with patient and/or family. Voiced understanding. Medications as directed. Drink plenty of fluids. You may take Tylenol/acetaminophen as needed for pain per package directions. Follow-up with your doctor in a few days for recheck. You should follow a light diet for the next few days and then advance as tolerated. Return for worse pain, fever, vomiting, weakness, breathing problems or other concerns as needed. Scripts Ondansetron (Ondansetron Odt) 4 Mg Tab.rapdis 4 MG PO Q6H PRN for NAUSEA/VOMITING, #12 TAB 0 Refills Prov: CRISTIANE MCWILLIAMS MD 10/05/20 Nitrofurantoin Macrocrystal (Nitrofurantoin) 100 Mg Capsule 100 MG PO BID, #10 CAP 0 Refills Prov: CRISTIANE MCWILLIAMS MD 10/05/20 CRISTIANE MCWILLIAMS MD Oct 05, 2020 15:00
[2020-10-05 15:03] LABS: BILIRUBIN,URINE NEGATIVE (NEGATIVE); CLARITY,URINE CLEAR; COLOR,URINE YELLOW; GLUCOSE, URINE (UA) NEGATIVE (NEGATIVE); KETONES,URINE NEGATIVE (NEGATIVE); LEUKOCYTE ESTERASE ,URINE NEGATIVE (NEGATIVE); NITRITE,URINE POSITIVE (NEGATIVE); PROTEIN,URINE NEGATIVE (NEGATIVE)
[2020-10-05 15:29] LABS: BACTERIA,URINE TRACE /HPF
[2020-10-05 15:55] LABS: BASOPHILS % (AUTO) 1 % (0-10); EOSINOPHILS # (AUTO) 0.1 10^3/uL (0.0-0.3); EOSINOPHILS % (AUTO) 1 % (0-10); HEMATOCRIT 41 % (35-52); HEMOGLOBIN 12.9 g/dL (11.5-16.0); LYMPHOCYTES # (AUTO) 1.6 10^3/uL (1.0-4.0); LYMPHOCYTES % (AUTO) 25 % (12-44); MEAN CORPUSCULAR HEMOGLOBIN 29 pg (25-34); MEAN CORPUSCULAR HGB CONC 32 g/dL (32-36); MEAN CORPUSCULAR VOLUME 90 fL (80-99); MEAN PLATELET VOLUME 10.4 fL (9.0-12.2); MONOCYTES # (AUTO) 0.6 10^3/uL (0.0-1.0); MONOCYTES % (AUTO) 9 % (0-12); NEUTROPHILS # (AUTO) 4.2 10^3/uL (1.8-7.8); NEUTROPHILS % (AUTO) 64 % (42-75); PLATELET COUNT 253 10^3/uL (130-400); WHITE BLOOD COUNT 6.5 10^3/uL (4.3-11.0)
[2020-10-05 15:56] LABS: CHLORIDE 107 MMOL/L (98-107); POTASSIUM 4.3 MMOL/L (3.6-5.0); SODIUM 141 MMOL/L (135-145)
[2020-10-05 15:57] LABS: CALCIUM 9.7 MG/DL (8.5-10.1)
[2020-10-05 15:59] LABS: GLUCOSE 96 MG/DL (70-105)
[2020-10-05 16:00] LABS: CARBON DIOXIDE 24 MMOL/L (21-32)
[2020-10-05 16:01] LABS: BILIRUBIN,TOTAL 0.2 MG/DL (0.1-1.0)
[2020-10-05 16:02] LABS: ALKALINE PHOSPHATASE 93 U/L (40-136); CREATININE SERUM 0.62 MG/DL (0.60-1.30); GFR ESTIMATED > 60
[2020-10-05 16:03] LABS: BUN/CREATININE RATIO 19
[2020-10-05 16:05] LABS: ALANINE AMINOTRANSFERASE 45 U/L (0-55)
[2020-10-05] MEDS ORDERED: NS 100 ML (IVPB) BAG IV ONE (16:30)
[2020-10-05] MEDS ORDERED: HOLD METFORMIN - RECEIVED CONTRAST 20 ML VIAL IV SCH (16:30)
[2020-10-05] MEDS ORDERED: IOHEXOL 350 MG/ML 100 ML (OMNIPAQUE 350) VIAL IV ONE (16:30)
--- NOTE | 2020-10-05 17:05 | Diagnostic Imaging Report ---
PROCEDURE: CT abdomen and pelvis with contrast. TECHNIQUE: Multiple contiguous axial images were obtained through the abdomen and pelvis after administration of intravenous contrast. Auto Exposure Controls were utilized during the CT exam to meet ALARA standards for radiation dose reduction. All CT scans use one or more of the following dose optimizing techniques: automated exposure control, MA and/or KvP adjustment based on patient size and exam type or iterative reconstruction. INDICATION: Generalized abdominal pain, diarrhea, abnormal bowel movements. COMPARISON: 06/26/2020. FINDINGS: Again seen is subsegmental atelectasis in the left base which is unchanged. The gallbladder is surgically absent. Solid organs and vascular structures are stable. There is no free air or free fluid. The gallbladder is surgically absent. There is an ileal diversion in the right lower quadrant. There are slightly distended loops of fluid-filled bowel within the pelvis and to the level of the ostomy of the anterior abdominal wall. This is likely normal for urinary diversion. There is no obvious inflammation. The visualized colon is decompressed. There is no significant constipation. There is no obstructive process. Prominent renal pelves are present and likely normal for urinary diversion. There is no abscess. Osseous structures are stable. The urinary bladder is surgically absent. IMPRESSION: 1. No bowel obstruction, free air, or free fluid. 2. Prominent but less pronounced compared to the prior exam fluid-filled loops of bowel within the pelvis, likely normal for urinary diversion. Enteritis or ileus not fully excluded. There is no constipation or inflammatory process. 3. Surgically absent urinary bladder and gallbladder. Dictated by: Dictated on workstation # [id number]
[2020-10-05] MEDS ORDERED: NITR100C PO (18:00)
[2020-10-05] MEDS ORDERED: HYDROcodone/APAP 5 MG/325 MG (LORTAB) TAB PO ONE (18:00)
[2020-10-05] MEDS ORDERED: ONDA4TAB11 PO (18:00)
[2020-10-05 18:09] VITALS: BP 120/76
== END 2020-10-05 18:12 | disposition home or self-care (01) ==
LOC: EDUNIT# 12:38 → ER 12:40
DX: N39.0 Urinary tract infection, site not specified (principal); J44.9 Chronic obstructive pulmonary disease, unspecified; I10 Essential (primary) hypertension; E78.00 Pure hypercholesterolemia, unspecified; I25.10 Atherosclerotic heart disease of native coronary artery without angina pectoris; I48.91 Unspecified atrial fibrillation; K21.9 Gastro-esophageal reflux disease without esophagitis; F03.90 Unspecified dementia, unspecified severity, without behavioral disturbance, psychotic disturbance, mood disturbance, and anxiety; F41.9 Anxiety disorder, unspecified; F32.9 Major depressive disorder, single episode, unspecified; F17.210 Nicotine dependence, cigarettes, uncomplicated; Z79.01 Long term (current) use of anticoagulants; Z79.52 Long term (current) use of systemic steroids; Z79.899 Other long term (current) drug therapy
CPT/HCPCS: 36415; 74022; 74177; 80053; 81000; 85025; 86141; 87077; 87088; 87186

== ENCOUNTER → 2020-10-12 | Outpatient (CLI) | payer MEDICARE, MEDICAID ==
[2020-10-12 14:49] LABS: BASOPHILS % (AUTO) 1 % (0-10); EOSINOPHILS # (AUTO) 0.2 10^3/uL (0.0-0.3); EOSINOPHILS % (AUTO) 4 % (0-10); HEMATOCRIT 40 % (35-52); HEMOGLOBIN 12.9 g/dL (11.5-16.0); LYMPHOCYTES # (AUTO) 1.8 10^3/uL (1.0-4.0); LYMPHOCYTES % (AUTO) 29 % (12-44); MEAN CORPUSCULAR HEMOGLOBIN 30 pg (25-34); MEAN CORPUSCULAR HGB CONC 33 g/dL (32-36); MEAN CORPUSCULAR VOLUME 91 fL (80-99); MEAN PLATELET VOLUME 9.9 fL (9.0-12.2); MONOCYTES # (AUTO) 0.5 10^3/uL (0.0-1.0); MONOCYTES % (AUTO) 8 % (0-12); NEUTROPHILS # (AUTO) 3.7 10^3/uL (1.8-7.8); NEUTROPHILS % (AUTO) 58 % (42-75); PLATELET COUNT 257 10^3/uL (130-400); WHITE BLOOD COUNT 6.3 10^3/uL (4.3-11.0)
--- NOTE | 2020-10-12 18:00 | Diagnostic Imaging Report ---
INDICATION: Cough and shortness of breath PA and lateral chest obtained at 0302 p.m. and compared to 09/29/2019. Heart and mediastinal silhouette are normal in appearance. There are increased markings in the right medial base which are unchanged compared to the prior study. There is no new infiltrate or pneumothorax or pleural fluid. IMPRESSION: Increased markings right medial base are present which appear chronic compared to the prior study. There is no new abnormality, there is no acute infiltrate. Dictated by: Dictated on workstation # [id number]
== END ==
LOC: LAB 14:24
PROVIDERS: ATTEND Nurse Practitioner Family
DX: R05 Cough (principal); R06.02 Shortness of breath
CPT/HCPCS: 36415; 71046; 85025

== ENCOUNTER 2020-12-18 10:00 | Outpatient (RCR) | payer MEDICARE, MEDICAID ==
[~2020-12-18 10:00] MED LIST changes: -SULF1TAB35 PO; +SULF1TAB38 PO
== END 2020-12-28 09:13 | disposition home or self-care (01) ==
PROVIDERS: ATTEND Nurse Practitioner
DX: M54.2 Cervicalgia (principal); J43.9 Emphysema, unspecified; Z98.1 Arthrodesis status

== ENCOUNTER → 2021-01-24 | Outpatient (CLI) | payer MEDICARE, MEDICAID | LOC: LAB 09:50 | PROVIDERS: ATTEND Emergency Medicine | DX: Z01.89 Encounter for other specified special examinations (principal); Z79.899 Other long term (current) drug therapy | CPT/HCPCS: 36415; 80323 ==

== ENCOUNTER → 2021-02-07 | Outpatient (CLI) | payer MEDICARE, MEDICAID ==
[~2021-02-07] MED LIST changes: -MAGN400T8 PO; +MGX400T PO
== END ==
LOC: LAB
PROVIDERS: ATTEND Nurse Practitioner Family
DX: M81.0 Age-related osteoporosis without current pathological fracture (principal)
CPT/HCPCS: 36415; 82306

== ENCOUNTER → 2021-02-16 | Outpatient (CLI) | payer MEDICARE, MEDICAID | LOC: LAB 14:13 | DX: K52.9 Noninfective gastroenteritis and colitis, unspecified (principal) | CPT/HCPCS: 36415; 83993; 87205; 87324; 87328; 87329; 87449; 87798 ==

== ENCOUNTER → 2021-02-27 | Outpatient (CLI) | payer MEDICARE, MEDICAID ==
[~2021-02-27] VITALS: Ht 160 cm; Wt 68.0 kg
[~2021-02-27] MED LIST changes: +ALOS0.5T2 PO; +BENZ-36 PO; +BISA5TAB8 PO; +CHOL10007 PO; +DICY20TA10 PO; +ERGO1250 PO; +FAMO40TA72 PO; +FERR-74 PO; +LAMO25TA75 PO; +LATA7.5D OP; +MELO7.5T46 PO; +METO50TA7 PO; +MULT-1136 PO; +NF-COLE1GM PO; +OLAN2.5T27 PO; +ONDN4T PO; +VNL75T PO
== END | disposition home or self-care (01) ==
LOC: PREOP 11:54
PROVIDERS: ATTEND Surgery
DX: Z01.818 Encounter for other preprocedural examination (principal)

== ENCOUNTER 2021-02-28 11:52 | Day surgery (SDC) | payer MEDICARE, MEDICAID ==
[~2021-02-28] VITALS: Ht 160 cm; Wt 68.0 kg
[~2021-02-28 11:52] MED LIST changes: -ALOS0.5T2 PO; -BENZ-36 PO; -BISA5TAB8 PO; -CHOL10007 PO; -DICY20TA10 PO; -ERGO1250 PO; -FAMO40TA72 PO; -FERR-74 PO; -LAMO25TA75 PO; -LATA7.5D OP; -MELO7.5T46 PO; -METO50TA7 PO; +MONT-40 PO; -MONT10TA32 PO; -MULT-1136 PO; -NF-COLE1GM PO; -OLAN2.5T27 PO; -ONDN4T PO; -VNL75T PO
[2021-02-28] MEDS ORDERED: LACTATED RINGERS 1,000 ML IV ONE (11:58)
--- NOTE | 2021-02-28 12:17 | Progress Note-Pre Operative ---
Pre-Operative Progress Note H&P Reviewed The H&P was reviewed, patient examined and no changes noted. Date Seen by Provider: Feb 28, 2021 Time Seen by Provider: 12:00 Date H&P Reviewed: Feb 28, 2021 Time H&P Reviewed: 12:00 Pre-Operative Diagnosis: dyspagia/GERD PETAR NORMAN MD Feb 28, 2021 12:17
--- NOTE | 2021-02-28 12:18 | Discharge Inst-Surgical ---
D/C Lap Instructions-ESTER Follow Up PRN Activity as tolerated High Fiber Diet 25g or more per day Avoid Alcohol, Caffeine, Spicy [place] and Acid foods. Drink 64 fluid oz or more of fluids per day. Symptoms to Report: Fever over 101 degree F, Nausea/Vomiting If any problems/questions: Contact your physician or go to Emergency Room PETAR NORMAN MD Feb 28, 2021 12:18
[2021-02-28 12:25] VITALS: BP 124/78
[2021-02-28] MEDS ORDERED: ONDANSETRON 4 MG (ZOFRAN) ORAL DISSOLVE TAB PO PRN (12:30)
[2021-02-28] MEDS ORDERED: ONDANSETRON 4 MG/2 ML (SDV) Z0FRAN IVP PRN (12:30)
[2021-02-28] MEDS ORDERED: LACTATED RINGERS 1,000 ML IV STA (12:35)
[2021-02-28] MEDS ORDERED: LIDOCAINE JELLY 2% 6 ML SYRINGE MM PRN (12:45)
[2021-02-28] MEDS ORDERED: HURRICAINE EXT TUBE (BENZOCAINE) XX PRN (12:45)
[2021-02-28] MEDS ORDERED: RT-ALBUTEROL SULF 2.5 MG/3 ML PRE-MIX VIAL INH ONE (13:15)
[2021-02-28] MEDS ORDERED: RT-ALBUTEROL SULF 2.5 MG/3 ML PRE-MIX VIAL ONE (13:28)
[2021-02-28] MEDS ORDERED: BENZ-36 PO (13:53)
[2021-02-28] MEDS ORDERED: SUMA100T2 PO (13:53)
[2021-02-28] MEDS ORDERED: OLAN2.5T27 PO (13:53)
[2021-02-28] MEDS ORDERED: LATA7.5D OP (13:53)
[2021-02-28] MEDS ORDERED: FERR-74 PO (13:53)
[2021-02-28] MEDS ORDERED: MELO7.5T46 PO (13:53)
[2021-02-28] MEDS ORDERED: CHOL10007 PO (13:53)
[2021-02-28] MEDS ORDERED: LAMO25TA75 PO (13:53)
[2021-02-28] MEDS ORDERED: NF-COLE1GM PO (13:53)
[2021-02-28] MEDS ORDERED: BISA5TAB8 PO (13:53)
[2021-02-28] MEDS ORDERED: FAMO40TA72 PO (13:53)
[2021-02-28] MEDS ORDERED: MECL-149 PO (13:53)
[2021-02-28] MEDS ORDERED: ERGO1250 PO (13:53)
[2021-02-28] MEDS ORDERED: DICY20TA PO (13:53)
[2021-02-28] MEDS ORDERED: ALOS0.5T2 PO (13:53)
[2021-02-28] MEDS ORDERED: DILT240C90 PO (13:53)
[2021-02-28] MEDS ORDERED: METO50TA7 PO (13:53)
[2021-02-28] MEDS ORDERED: HYDR-3923 PO (13:53)
[2021-02-28] MEDS ORDERED: MULT-1136 PO (13:53)
[2021-02-28] MEDS ORDERED: BUSP5TAB59 PO (13:53)
[2021-02-28] MEDS ORDERED: PROPOFOL INJECTION 50 ML IV ONE (13:54)
[2021-02-28] MEDS ORDERED: ONDN4T PO (13:54)
[2021-02-28] MEDS ORDERED: SUCR1TAB36 PO (13:54)
[2021-02-28] MEDS ORDERED: VNL75T PO (13:54)
--- NOTE | 2021-02-28 14:19 | Anesthesia-General Post-Op ---
MAC Patient Condition Mental Status/LOC: Same as Preop Cardiovascular: Satisfactory Nausea/Vomiting: Absent Respiratory: Satisfactory Pain: Controlled Complications: Absent Post Op Complications Complications None Follow Up Care/Instructions Patient Instructions None needed. Anesthesiology Discharge Order Discharge Order Patient is doing well, no complaints, stable vital signs, no apparent adverse anesthesia problems. No complications reported per nursing. SEJAL SANTOS CRNA Feb 28, 2021 14:19
[2021-02-28 14:20] VITALS: BP 114/59
--- NOTE | 2021-02-28 14:23 | Progress Note-Post Operative ---
Post-Operative Progess Note Surgeon (s)/Litigation Paralegal (s) Surgeon PETAR NORMAN MD Litigation Paralegal: none Pre-Operative Diagnosis dyspagia/GERD Post-Operative Diagnosis reflux esophagitis(stage 2), dist esoph stricture, small-mod HH(2.5cm), moderate gastritis. Procedure & Operative Findings Date of Procedure 02/28/21 Procedure Performed/Findings EGD with bx and balloon dilatation. Anesthesia Type mac Estimated Blood Loss Estimated blood loss (mL): minimal Specimens/Packing Specimens Removed ge jxn, antrum PETAR NORMAN MD Feb 28, 2021 14:23
[2021-02-28 14:25] VITALS: BP 114/59
[2021-02-28] MEDS ORDERED: oxyCODONE/APAP 7.5-325 MG (PERCOCET 7.5) TABLET PO ONE (14:30)
[2021-02-28 14:50] VITALS: BP_SYST 106; BP_SYST 114; BP_DIAS 59; BP_DIAS 64
[2021-02-28 15:15] VITALS: BP 106/64
--- NOTE | 2021-02-28 20:18 | OPERATIVE REPORT ---
DATE OF SERVICE: 02/28/2021 ATTENDING PRIMARY CARE PHYSICIAN: Lia Griffin. PREOPERATIVE DIAGNOSIS: Recurrent dysphagia. POSTOPERATIVE DIAGNOSES: Reflux esophagitis stage II, distal esophageal stricture, small to moderate size hiatal hernia 2.5 cm in size, moderate gastritis, and no distal obstructions. PROCEDURES PERFORMED: EGD with biopsy and balloon dilatation. SURGEON: Petar Norman MD. ANESTHESIA: Monitored anesthesia care. ESTIMATED BLOOD LOSS: Minimal. FINDINGS: Reflux esophagitis stage II, distal esophageal stricture, small to moderate size hiatal hernia 2.5 cm in size, moderate gastritis, and no distal obstructions. DISPOSITION: The patient tolerated the procedure well. INDICATION FOR PROCEDURE: The patient is a 65-year-old female known to us. She has had a longstanding history of gastroesophageal reflux disease and dysphagia; however, a large part of this was due to medical compliance and a heavy smoking past history. Her last EGD and balloon dilatation was in 2018. Since that time, she has had other issues including the diagnosis of bladder cancer requiring a radical cystectomy and urostomy formation. She states that she did stop smoking in 12/2020. She states that she has recurrent dysphagia with a substernal pressure sensation after a food bolus, which would eventually reduce; however, would also regurgitate up. She does not report any hematemesis and no coffee ground emesis. DESCRIPTION OF PROCEDURE: The patient was brought to the endoscopy suite and laid in the left lateral decubitus position. After adequate IV pain and sedative medications and monitored anesthesia care, the mouthpiece was applied. The endoscope was placed in the mouth, visualizing the pharynx and hypopharyngeal region. Vocal cords, epiglottis, and vallecula were identified and appeared to be normal. The endoscope was then gently intubated, the esophageal opening and esophagus insufflated. The endoscope was then advanced through the first, second and third portion of the esophagus. At the level of the GE junction, a reflux esophagitis stage II was identified as well as a distal esophageal stricture. A biopsy was taken with forceps with visualization of good hemostasis. The endoscope was then advanced in the stomach and endoscope retroflexed, visualizing a small to moderate size hiatal hernia approximately 2.5 cm in size. There was a moderate severity, diffuse gastritis. No formal ulcerations, polyps or any neoplasms. A biopsy was taken with forceps with visualization of good hemostasis. The endoscope was then advanced through the pylorus in the first and second portions of the duodenum, which appeared normal with no distal obstructions. The balloon was then placed in the stomach and pulled back to the area of the stricture. We then proceeded in a stepwise graded fashion, first from 2 and then 4, and eventually 5 atmospheres of pressure or approximately 19.5 mm in luminal diameter with moderate resistance and left this in place for approximately 60 seconds. The balloon was then desufflated and removed with visualization of good hemostasis as well as no mucosal tears. The endoscope was then slowly withdrawn while taking a second look and suctioning of residual air with no additional findings. The patient tolerated the procedure well. We will recommend continued medical management with continued smoking cessation as well as small and more frequent meals, avoidance of eating at night as well as head elevation while lying supine. She also needs to continue to avoid caffeinated beverages, spicy, greasy, and acidic foods. Job ID: [id number] DocumentID: [id number] Dictated Date: 02/28/2021 14:19:52 Patrol Driver Date: 02/28/2021 20:17:51 Dictated By: PETAR NORMAN MD
== END 2021-02-28 15:15 | disposition home or self-care (01) ==
LOC: ENDO 11:52
PROVIDERS: ATTEND Surgery
DX: K22.2 Esophageal obstruction (principal); K21.00 Gastro-esophageal reflux disease with esophagitis, without bleeding; K44.9 Diaphragmatic hernia without obstruction or gangrene; K29.50 Unspecified chronic gastritis without bleeding; K31.84 Gastroparesis; I10 Essential (primary) hypertension; I25.10 Atherosclerotic heart disease of native coronary artery without angina pectoris; I48.91 Unspecified atrial fibrillation; J44.9 Chronic obstructive pulmonary disease, unspecified; E11.40 Type 2 diabetes mellitus with diabetic neuropathy, unspecified; F32.A Depression, unspecified; E11.39 Type 2 diabetes mellitus with other diabetic ophthalmic complication; H42 Glaucoma in diseases classified elsewhere; M85.88 Other specified disorders of bone density and structure, other site; E03.9 Hypothyroidism, unspecified; M19.90 Unspecified osteoarthritis, unspecified site; Z79.01 Long term (current) use of anticoagulants; Z79.899 Other long term (current) drug therapy; Z87.891 Personal history of nicotine dependence; Z99.81 Dependence on supplemental oxygen; Z86.73 Personal history of transient ischemic attack (TIA), and cerebral infarction without residual deficits; Z79.84 Long term (current) use of oral hypoglycemic drugs; Z90.49 Acquired absence of other specified parts of digestive tract; Z98.890 Other specified postprocedural states
CPT/HCPCS: 82947; 87636; 94640

== ENCOUNTER 2021-03-12 05:28 | Outpatient (RCR) | payer MEDICARE, MEDICAID ==
[~2021-03-12] VITALS: Ht 160 cm; Wt 68.0 kg
[~2021-03-12 05:28] MED LIST changes: +ALOS0.5T2 PO; +BENZ-36 PO; +BISA5TAB8 PO; +CHOL10007 PO; +DICY20TA PO; +ERGO1250 PO; +FAMO40TA72 PO; +FERR-74 PO; +LAMO25TA75 PO; +LATA7.5D OP; +MELO7.5T46 PO; +METO50TA7 PO; +MULT-1136 PO; +NF-COLE1GM PO; +OLAN2.5T27 PO; +ONDN4T PO; +VNL75T PO
== END 2021-03-12 10:26 | disposition home or self-care (01) ==
LOC: PREOP 05:28
PROVIDERS: ATTEND Surgery
DX: Z01.812 Encounter for preprocedural laboratory examination (principal); R13.10 Dysphagia, unspecified; Z20.822 Contact with and (suspected) exposure to COVID-19
CPT/HCPCS: 87635

== ENCOUNTER 2021-03-14 11:14 | Day surgery (SDC) | payer MEDICARE, MEDICAID ==
[~2021-03-14] VITALS: Ht 160 cm; Wt 68.0 kg
[2021-03-14] MEDS ORDERED: LACTATED RINGERS 1,000 ML IV STA (11:22)
[2021-03-14] MEDS ORDERED: LACTATED RINGERS 1,000 ML IV ONE (11:24)
[2021-03-14 11:30] VITALS: BP 131/79
[2021-03-14] MEDS ORDERED: HURRICAINE EXT TUBE (BENZOCAINE) XX PRN (11:30)
--- NOTE | 2021-03-14 11:35 | Progress Note-Pre Operative ---
Pre-Operative Progress Note H&P Reviewed The H&P was reviewed, patient examined and no changes noted. Date Seen by Provider: Mar 14, 2021 Time Seen by Provider: 11:30 Date H&P Reviewed: Mar 14, 2021 Time H&P Reviewed: 11:30 Pre-Operative Diagnosis: dysjphagia PETAR NORMAN MD Mar 14, 2021 11:34
--- NOTE | 2021-03-14 11:36 | Discharge Inst-Surgical ---
D/C Lap Instructions-ESTER Follow Up Activity as tolerated High Fiber Diet 25g or more per day Avoid Alcohol, Caffeine, Spicy [place] and Acid foods. Drink 64 fluid oz or more of fluids per day. Symptoms to Report: Fever over 101 degree F, Nausea/Vomiting If any problems/questions: Contact your physician or go to Emergency Room PETAR NORMAN MD Mar 14, 2021 11:36
[2021-03-14] MEDS ORDERED: ONDANSETRON 4 MG/2 ML (SDV) Z0FRAN IVP PRN (11:45)
[2021-03-14] MEDS ORDERED: ONDANSETRON 4 MG (ZOFRAN) ORAL DISSOLVE TAB PO PRN (11:45)
[2021-03-14] MEDS ORDERED: proPOfol 200 MG/20 ML (DIPRIVAN) VIAL IV ONE (12:41)
[2021-03-14] MEDS: LIDOCAINE JELLY 2% 6 ML SYRINGE MM PRN (12:43)
[2021-03-14 13:13] VITALS: BP 104/56
--- NOTE | 2021-03-14 13:23 | Progress Note-Post Operative ---
Post-Operative Progess Note Surgeon (s)/Primary Clinician (s) Surgeon PETAR NORMAN MD Primary Clinician: none Pre-Operative Diagnosis dysphagia Post-Operative Diagnosis chronic stage 2-3 reflux esophagitis, mild dist esoph stricture, moderate-large recurrent HH(4-5cm), mild gastritis. Procedure & Operative Findings Date of Procedure 03/14/21 Procedure Performed/Findings EGD with balloon dilatation. Anesthesia Type mac Estimated Blood Loss Estimated blood loss (mL): minimal Specimens/Packing Specimens Removed none PETAR NORMAN MD Mar 14, 2021 13:23
[2021-03-14 13:37] VITALS: BP 104/56
[2021-03-14 13:43] VITALS: BP 121/72
--- NOTE | 2021-03-14 14:00 | Anesthesia-General Post-Op ---
MAC Patient Condition Mental Status/LOC: Same as Preop Cardiovascular: Satisfactory Nausea/Vomiting: Absent Respiratory: Satisfactory Pain: Controlled Complications: Absent Post Op Complications Complications None Follow Up Care/Instructions Patient Instructions None needed. Anesthesiology Discharge Order Discharge Order Patient was doing well after the procedure, no complaints, stable vital signs, no apparent adverse anesthesia problems. RADHA MEDEIROS DO Mar 14, 2021 14:00
--- NOTE | 2021-03-14 22:59 | OPERATIVE REPORT ---
DATE OF SERVICE: 03/14/2021 ATTENDING PRIMARY CARE PHYSICIAN: Dr. Griffin. PREOPERATIVE DIAGNOSIS: Recurrent dysphagia. POSTOPERATIVE DIAGNOSES: Mild distal esophageal stricture, large recurrent hiatal hernia, mild to moderate gastritis. No distal obstructions. PROCEDURE: EGD with balloon dilatation. SURGEON: Petar Norman MD. ANESTHESIA: Monitored anesthesia care. ESTIMATED BLOOD LOSS: Minimal. FINDINGS: Mild distal esophageal stricture, large recurrent hiatal hernia, mild to moderate gastritis. No distal obstructions. DISPOSITION: The patient tolerated the procedure well. INDICATIONS FOR PROCEDURE: The patient is a 65-year-old female with a longstanding history of upper gastrointestinal issues. She has a longstanding history of smoking as well as medical noncompliance. She had had issues with continuing gastroesophageal reflux disease as well as peptic ulcer disease; however, continue to smoke. We had done the multiple previous upper endoscopies and treated her medically and she would at times improved; however, she had recurrence of symptoms. In the interim, she did develop a bladder cancer and required a radical cystectomy and ileal conduit formation. She reports that she continues to have dysphagia; however, we feel that this is mostly a multifactorial and likely has some level of dysmotility as well as gastroparesis. We did do an EGD several weeks ago and was found to have a mild distal esophageal stricture and we are able to dilatate to 19.5 mm in diameter. She states that she wants to try to increase dilatation to 20 mm in hopes of giving her some symptomatic relief. DESCRIPTION OF PROCEDURE: The patient was brought to the endoscopy suite, laid in the left lateral decubitus position. After adequate IV pain and sedative medications and monitored anesthesia care, the mouthpiece was applied. The endoscope was placed in the mouth, visualizing the pharynx and hypopharyngeal region. Vocal cords, epiglottis and vallecula identified and appeared to be normal. The endoscope was then gently intubated into esophageal opening and esophagus insufflated. The endoscope was then advanced through the first, second and third portion of esophagus at the level of the GE junction, reflux esophagitis between stage II and III identified. There was again a mild distal esophageal stricture identified. The endoscope was then advanced in the stomach and endoscope retroflexed, visualizing a previous antireflux procedure; however, she does have a recurrent, moderate to large size hiatal hernia approximately 4 cm in size. There was a mild to moderate gastritis. Endoscope was then advanced to the pylorus and the first and second portion of the duodenum with no distal obstructions identified. The wound was then placed in the stomach and pulled back to the area of the stricture. We then proceeded in a stepwise fashion from 2, 4, then eventually 6 atmospheres of pressure with moderate resistance and 20 mm in luminal diameter and left this in place for 120 seconds. The balloon was then desufflated and removed with visualization of good hemostasis as well as no mucosal tears. The endoscope was then slowly withdrawn while taking a second look and suctioning of residual air with no additional findings. The patient tolerated the procedure well. We will recommend continued medical management with the necessary lifestyle and dietary accommodation including small and more frequent meals, avoidance of eating at night as well as head elevation while lying supine. If she continues to have issues with dysphagia, she may need referral to gastroenterology as well as further studies including esophageal manometry studies as well as a nuclear gastric emptying study. Job ID: [id number] DocumentID: [id number] Dictated Date: 03/14/2021 13:11:10 Emergency Medicine Date: 03/14/2021 22:58:40 Dictated By: PETAR NORMAN MD MTDD
== END 2021-03-14 13:50 | disposition home or self-care (01) ==
LOC: ENDO 11:14
PROVIDERS: ATTEND Surgery
DX: K22.2 Esophageal obstruction (principal); K44.9 Diaphragmatic hernia without obstruction or gangrene; K29.30 Chronic superficial gastritis without bleeding; K21.00 Gastro-esophageal reflux disease with esophagitis, without bleeding; E11.51 Type 2 diabetes mellitus with diabetic peripheral angiopathy without gangrene; J44.9 Chronic obstructive pulmonary disease, unspecified; F32.A Depression, unspecified; I10 Essential (primary) hypertension; I48.91 Unspecified atrial fibrillation; I25.10 Atherosclerotic heart disease of native coronary artery without angina pectoris; Z79.01 Long term (current) use of anticoagulants; Z79.899 Other long term (current) drug therapy; Z87.891 Personal history of nicotine dependence; Z85.51 Personal history of malignant neoplasm of bladder; Z79.84 Long term (current) use of oral hypoglycemic drugs; M85.80 Other specified disorders of bone density and structure, unspecified site; H40.9 Unspecified glaucoma
CPT/HCPCS: 82947

== ENCOUNTER 2021-03-28 22:24 | Emergency (ER) | payer MEDICARE, MEDICAID ==
[~2021-03-28] VITALS: Ht 160 cm; Wt 70.0 kg
--- NOTE | 2021-03-28 22:45 | ED GU-Female ---
General Stated Complaint: URINE BAG CLOGGED/NOT DRAINING/PAIN History of Present Illness Date Seen by Provider: Mar 28, 2021 Time Seen by Provider: 22:40 Initial Comments 65 year old female reports decreased output from urinary diversion pouch. Reports drinking 1 glass of water every 2 hours, throughout the day. She usually empties it 3 times daily, today she emptied it twice. She was concerned there was some white skin color changes to the stoma. She called her home health and they told her to come to ED. Her surgeon did the procedure in April of 2019 in [place]. Her PCP is in [place]. Her symptoms began yesterday and she has not attempted to reach the surgeon or PCP. She took 3 Tylenol PM at 1900 for pain. She reports her stoma to be brighter pink than normal. She wears 2L of O2 per NC. Home Health saw patient on 03/26/21 and changed her device and bags for urinary diversion, they did not notice any abnormal changes to her skin, urine or pouch. She saw her PCP on 03/26/21 for green urine and culture was obtained, they will call her with results in 3-4 days. Did not start her on antibiotic. Timing/Duration: yesterday Severity/Quality: moderate Location: RLQ Radiation: none Associated Symptoms: abdominal pain, other (pain at stoma. ) Allergies and Home Medications Allergies Coded Allergies: bacitracin (Verified Allergy, Intermediate, "I BREAK OUT IN A RASH ALL OVER.", 04/20/19) neomycin (Verified Allergy, Intermediate, "I BREAK OUT IN A RASH ALL OVER.", 04/20/19) polymyxin B (Verified Allergy, Intermediate, "I BREAK OUT IN A RASH ALL OVER.", 04/20/19) ibuprofen (Verified Allergy, Mild, RASH, 04/20/19) naproxen (Verified Allergy, Mild, RASH, 04/20/19) tramadol (Verified Allergy, Unknown, 07/01/20) Patient Home Medication List Home Medication List Reviewed: Yes Albuterol Sulfate (Albuterol Sulfate) 2.5 Mg/3 Ml Vial.neb, 2.5 MG NEB Q6H PRN for SHORTNESS OF BREATH, (Reported) Entered as Reported by: GRETA MANCILLA on 11/26/16 1400 Albuterol Sulfate (Ventolin Hfa) 18 Gm Hfa.aer.ad, 2 PUFF INH QID PRN for SHORTNESS OF BREATH, (Reported) Entered as Reported by: GRETA MANCILLA on 05/21/18 1455 Alosetron HCl (Alosetron HCl) 0.5 Mg Tablet, 0.5 MG PO BID, (Reported) Entered as Reported by: JESSICA GILMORE on 02/28/21 135 Apixaban (Eliquis) 5 Mg Tablet, 5 MG PO BID, (Reported) Entered as Reported by: GRETA MANCILLA on 07/11/17 1530 Benzonatate (Benzonatate) 100 Mg Capsule, 100 MG PO TID, (Reported) Entered as Reported by: JESSICA GILMORE on 02/28/21 135 Bisacodyl (Bisacodyl) 5 Mg Tablet.dr, 5 MG PO DAILY PRN for CONSTIPATION-1ST LINE, (Reported) Entered as Reported by: JESSICA GILMORE on 02/28/21 135 Buspirone HCl (Buspirone HCl) 5 Mg Tablet, 5 MG PO TID, (Reported) Entered as Reported by: JESSICA GILMORE on 02/28/21 135 Cholecalciferol (Vitamin D3) (Vitamin D3) 25 Mcg Capsule, 25 MCG PO DAILY, (Reported) Entered as Reported by: JESSICA GILMORE on 02/28/21 135 Clonazepam (Clonazepam) 1 Mg Tablet, 1 MG PO BID, (Reported) Entered as Reported by: JAMIE GOVEA on 04/20/19 1024 Colestipol HCl (Colestid) 1 Gm Tab, 1 GM PO BID, (Reported) Entered as Reported by: JESSICA GILMORE on 02/28/21 135 Cyanocobalamin (Vitamin B-12) (Vitamin B-12) 1,000 Mcg Tablet, 1,000 MCG PO DAILY, (Reported) Entered as Reported by: SERENITY COPELAND on 12/30/19 181 Dapagliflozin Propanediol (Farxiga) 5 Mg Tablet, 5 MG PO DAILY, (Reported) Entered as Reported by: GRETA MANCILLA on 05/21/18 1455 Denosumab (Prolia) 60 Mg/1 Ml Disp.syrin, 60 MG INJ EVERY 6 MONTHS, (Reported) Entered as Reported by: SERENITY COPELAND on 05/05/20 1153 Dicyclomine HCl (Dicyclomine HCl) 20 Mg Tablet, 20 MG PO QID, (Reported) Entered as Reported by: JESSICA GILMORE on 02/28/21 1353 Digoxin (Digoxin) 250 Mcg Tablet, 250 MCG PO DAILY, (Reported) Entered as Reported by: SERENITY COPELAND on 12/30/19 1728 Diltiazem HCl (Diltiazem 24Hr Cd) 240 Mg Cap.er.24h, 240 MG PO DAILY, (Reported) Entered as Reported by: JESSICA GILMORE on 02/28/21 1353 Donepezil HCl (Donepezil HCl) 10 Mg Tablet, 10 MG PO HS, (Reported) Entered as Reported by: GRETA MANCILLA on 11/26/16 1400 Erenumab-Aooe (Aimovig Autoinjector) 70 Mg/1 Ml Auto.injct, 70 MG MONTHLY, (Reported) Entered as Reported by: SERENITY COPELAND on 12/30/19 1728 Ergocalciferol (Vitamin D2) (Vitamin D2) 1,250 Mcg Capsule, 1,250 MCG PO TWICE WEEKLY, (Reported) Entered as Reported by: JESSICA GILMORE on 02/28/21 135 Famotidine (Pepcid) 40 Mg Tablet, 40 MG PO BID, (Reported) Entered as Reported by: JESSICA GILMORE on 02/28/21 1353 Ferrous Sulfate (Ferrous Sulfate) 325 Mg Tablet, 325 MG PO DAILY, (Reported) Entered as Reported by: JESSICA GILMORE on 02/28/21 1353 Fluticasone Propionate (Fluticasone Propionate) 16 Gm [place].susp, 2 SPRAYS NS BID PRN for ALLERGIES, (Reported) Entered as Reported by: GRETA MANCILLA on 07/11/17 1530 Hydralazine HCl (Hydralazine HCl) 25 Mg Tablet, 25 MG PO TID, (Reported) Entered as Reported by: JESSICA GILMORE on 02/28/21 1353 Hydroxyzine HCl (Hydroxyzine HCl) 25 Mg Tablet, 0.5 MG PO TID PRN for ITCHING Prescribed by: DAVIDSON RIVERS on 09/22/20 1541 L.acidoph & Paracasei,B.lactis (Probiotic) 1 Each Capsule, 1 EACH PO DAILY, (Reported) Entered as Reported by: SERENITY COPELAND on 12/30/19 181 Lamotrigine (Lamictal) 25 Mg Tablet, 25 MG PO, (Reported) Entered as Reported by: JESSICA GILMORE on 02/28/21 135 Latanoprost/Pf (Latanoprost 0.005% Eye Drop) 7.5 Ml Drops, 7.5 ML OP, (Reported) Entered as Reported by: JESSICA GILMORE on 02/28/211352 Levocetirizine Dihydrochloride (Levocetirizine Dihydrochloride) 5 Mg Tablet, 5 MG PO DAILY, (Reported) Entered as Reported by: URSZULA BELL on 05/14/18 0828 Meclizine HCl (Meclizine HCl) 25 Mg Tablet, 25 MG PO Q8H PRN for DIZZINESS, (Reported) Entered as Reported by: JESSICA GILMORE on 02/28/21 135 Meloxicam (Meloxicam) 7.5 Mg Tablet, 7.5 MG PO DAILY, (Reported) Entered as Reported by: JESSICA GILMORE on 02/28/211352 Memantine HCl (Memantine HCl) 10 Mg Tablet, 10 MG PO HS, (Reported) Entered as Reported by: BIENVENIDO FARRELL on 07/28/15 144 Metoprolol Succinate (Metoprolol Succinate) 50 Mg Tab.er.24h, 50 MG PO DAILY, (Reported) Entered as Reported by: JESSICA GILMORE on 02/28/21 135 Mirtazapine (Mirtazapine) 45 Mg Tablet, 45 MG PO HS, (Reported) Entered as Reported by: SERENITY COPELAND on 12/30/19 172 Multivitamin (Multivitamin) 1 Each Tablet, 1 EACH PO DAILY, (Reported) Entered as Reported by: JESSICA GILMORE on 02/28/211352 Nitroglycerin (Nitroglycerin) 0.4 Mg Tab.subl, 0.4 MG SL UD PRN for CHEST PAIN (ANGINA), (Reported) Entered as Reported by: SERENITY COPELAND on 12/30/19 172 Olanzapine (Olanzapine) 2.5 Mg Tablet, 2.5 MG PO HS, (Reported) Entered as Reported by: JESSICA GILMORE on 11/24/21 1353 Ondansetron HCl (Zofran) 4 Mg Tab, 4 MG PO Q8H, (Reported) Entered as Reported by: JESSICA GILMORE on 02/28/21 1354 Pantoprazole Sodium (Pantoprazole Sodium) 40 Mg Tablet.dr, 40 MG PO BID, (Reported) Entered as Reported by: GRETA MANCILLA on 05/21/18 1455 Prednisone (Prednisone) 10 Mg Tab, 5 MG PO DAILY, (Reported) Entered as Reported by: SERENITY COPELAND on 05/05/20 1153 Primidone (Mysoline) 250 Mg Tablet, 250 MG PO BID, (Reported) Entered as Reported by: JAMIE GOVEA on 04/20/19 1024 Ropinirole HCl (Ropinirole HCl) 2 Mg Tablet, 2 MG PO HS, (Reported) Entered as Reported by: SERENITY COPELAND on 12/30/19 1728 Sertraline HCl (Sertraline HCl) 100 Mg Tablet, 100 MG PO DAILY, (Reported) Entered as Reported by: GRETA MANCILLA on 07/11/17 1530 Simvastatin (Simvastatin) 20 Mg Tablet, 20 MG PO HS, (Reported) Entered as Reported by: BIENVENIDO FARRELL on 07/28/15 1444 Sucralfate (Carafate) 1 Gm Tablet, 1 GM PO QID, (Reported) Entered as Reported by: JESSICA GILMORE on 02/28/21 1354 Sumatriptan Succinate (Imitrex) 100 Mg Tablet, 100 MG PO DAILY PRN, (Reported) Entered as Reported by: JESSICA GILMORE on 02/28/21 1353 Venlafaxine HCl (Venlafaxine HCl) 75 Mg Tab, 75 MG PO DAILY, (Reported) Entered as Reported by: JESSICA GILMORE on 02/28/21 1354 Review of Systems Review of Systems Constitutional: no symptoms reported, see HPI; No fever, No malaise, No weakness Gastrointestinal: see HPI, abdominal pain (RLQ); No constipation, No nausea, No vomiting Genitourinary: see HPI; denies flank pain, denies hematuria; pain (at diversion stoma site) All Other Systemes Reviewed Negative Unless Noted: Yes Past Biokvfa-Xghxfo-Jznior Hx Immunizations Up To Date Tetanus Booster (TDap): Unknown PED Vaccines UTD: No First/Initial COVID19 Vaccinat: YES Second COVID19 Vaccination Hguo: YES Third COVID19 Vaccination Date: YES Seasonal Allergies Seasonal Allergies: No Past Medical History Surgeries: Yes (4 neck surgeries, thumb surgery both hands, bilat carple tunnel, bilat hip) Abdominal, Appendectomy, Bladder Surgery, Cardiac, Gallbladder, Joint Replacement, Orthopedic, Pancreatic, Tubal Ligation Respiratory: Yes (O2 AT HS & DURING DAY PRN) Asthma, COPD Currently Using CPAP: No Currently Using BIPAP: No Cardiac: Yes Atrial Fibrillation, Coronary Artery Disease, High Cholesterol, Hypertension, Irregular Heartbeat, Palpitations, Peripheral Vascular Neurological: Yes Dementia, Headaches /Migraines, Neuropathy 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 Disorders: No 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 Disorders: Denies [employer] History: Menopausal Sexually Transmitted Disease: No HIV/AIDS: No Genitourinary: Yes (SUPRAPUBIC CATH ) UTI-Chronic Gastrointestinal: Yes Gastroesophageal Reflux, Polyps, Hiatal Hernia, Gall Bladder Disease Musculoskeletal: Yes (CBP chronic knee pain, HIP REPLACEMENT 02/08/19) Arthritis Endocrine: Yes Hypothyroidsim, Diabetes, Non-Insulin dep HEENT: Yes (cataracts removed) Cataract Loss of Vision: Denies Hearing Impairment: Denies Cancer: Yes Bladder Did You Recieve Any Treatments: Yes What Type of Treatment Did You: Surgical Intervention Psychosocial: Yes Anxiety, Depression Integumentary: No Psoriasis Blood Disorders: No Adverse Reaction/Blood Tranf: No Family Medical History Reviewed Nursing Family Hx Cardiovascular disease G8 BROTHER (TRIPLE BYPASS) Diabetes mellitus 19 MOTHER FH: COPD (chronic obstructive pulmonary disease) 19 MOTHER FH: breast cancer 19 MOTHER FHx: brain cancer 19 FATHER No Pertinent Family Hx Physical Exam Vital Signs Vital Signs - First Documented 03/28/21 22:31 Temp 36.7 Pulse 60 Resp 16 B/P (MAP) 153/84 (107) Pulse Ox 97 O2 Delivery Nasal Cannula O2 Flow Rate 2.00 Capillary Refill : Height, Weight, BMI Height: 5'4.00" Weight: 165lbs. 0.0oz. 72.089237od; 26.56 BMI Method:Stated General Appearance: WD/WN, no apparent distress Cardiovascular: normal peripheral pulses, regular rate, rhythm Respiratory: chest non-tender, lungs clear Gastrointestinal: normal bowel sounds, soft, tenderness (only at stoma site RLQ) Back: normal inspection, no CVA tenderness Neurologic/Psychiatric: no motor/sensory deficits, alert, normal mood/affect, oriented x 3 Skin: normal color, warm/dry Progress/Results/Core Measures Suspected Sepsis SIRS Temperature: Pulse: Respiratory Rate: Blood Pressure / Mean: Results/Orders My Orders Orders - SHUBHAM CODY Ua Culture If Indicated (03/28/21 22:45) Wound Culture (03/28/21 22:45) Ondansetron Oral Dissolve Tab (Zofran (03/28/21 23:02) Ketorolac Injection (Toradol Injection) (03/28/21 23:02) Rx-Nitrofurantoin Phillips (Rx-Macrobid) (03/28/21 23:02) Vital Signs/I&O 03/28/21 22:31 Temp 36.7 Pulse 60 Resp 16 B/P (MAP) 153/84 (107) Pulse Ox 97 O2 Delivery Nasal Cannula O2 Flow Rate 2.00 Capillary Refill : Progress Note : Time: 22:40 Progress Note Patient seen and evaluated, urinary diversion pouch and bag removed, skin thoroughly cleaned, no active discharge, erythema, drainage or warmth. She is afebrile, SaO2 at 96% on 2L per NC. Chronic SOA. HR 70-80. Patient continues to state the edges of the stoma appear wider than normal however there is no signs of yeast. Culture obtained from stoma site. New wafer and bag applied with new urine bag. Will obtain UA, from clean bag. Toradol 60 mg IM for pain and Zofran 4 mg PO for nausea. No vomiting 2300 patient drank full glass of water, urine output clear. 2315 patient had spontaneous urine produced to collection bag, no leakage. UA obtained. Will start Macrobid and await culture. Stressed to patient that she will need to contact her surgeon, tomorrow if symptoms are not improving or wor sen. Discharge instructions and return precautions discussed. All questions answered. Departure Impression Primary Impression: History of urinary diversion procedure Additional Impression: Urinary complication Disposition: HOME, SELF-CARE Condition: Stable Departure-Patient Inst. Decision time for Depature: 23:10 Referrals: VIPIN GOODMAN DO (PCP/Family) Primary Care Physician Patient Instructions: Urinary Tract Infection, Adult (DC) Add. Discharge Instructions: Continue to empty bag as needed, increase water intake. Call your surgeon tomorrow, about any urinary issues. Take Tylnol 650 mg every 6-8 hours for pain. Do not take more than one Tylenol PM at bedtime. Take antibiotics, as prescribed. We should have your culture results in 24-48 hours. Call your home health nurses, for additional changes to your urinary diversion system. Return to Emergency Dept for new, urgent healthcare needs. Scripts Nitrofurantoin Monohyd/M-Cryst (Macrobid 100 mg Capsule) 100 Mg Capsule 1 TAB PO BID, #14 EA 0 Refills Prov: SHUBHAM CODY 03/28/21 SHUBHAM CODY Mar 28, 2021 22:45
[2021-03-28] MEDS ORDERED: KETOROLAC 60 MG/2 ML VIAL IM STA (23:02)
[2021-03-28] MEDS ORDERED: ONDANSETRON 4 MG (ZOFRAN) ORAL DISSOLVE TAB SL STA (23:02)
[2021-03-28] MEDS ORDERED: RX-NITROFURANTOIN 100 MG (MACROBID) CAP PPK#2 PO STA (23:02)
[2021-03-28 23:18] LABS: BILIRUBIN,URINE NEGATIVE (NEGATIVE); CLARITY,URINE CLEAR; COLOR,URINE YELLOW; GLUCOSE, URINE (UA) NEGATIVE (NEGATIVE); KETONES,URINE NEGATIVE (NEGATIVE); LEUKOCYTE ESTERASE ,URINE NEGATIVE (NEGATIVE); NITRITE,URINE NEGATIVE (NEGATIVE); PROTEIN,URINE NEGATIVE (NEGATIVE)
[2021-03-28] MEDS ORDERED: NITR-65 PO (23:19)
[2021-03-28 23:26] LABS: BACTERIA,URINE NEGATIVE /HPF; RBC,URINE 0-2 /HPF; WBC,URINE 0-2 /HPF
[2021-03-28 23:50] VITALS: BP 142/82
== END 2021-03-28 23:51 | disposition home or self-care (01) ==
LOC: EDUNIT# 22:24 → ER 22:26
DX: T83.091A Other mechanical complication of indwelling urethral catheter, initial encounter (principal); E11.40 Type 2 diabetes mellitus with diabetic neuropathy, unspecified; I10 Essential (primary) hypertension; I25.10 Atherosclerotic heart disease of native coronary artery without angina pectoris; I48.91 Unspecified atrial fibrillation; E78.00 Pure hypercholesterolemia, unspecified; F41.9 Anxiety disorder, unspecified; F32.9 Major depressive disorder, single episode, unspecified; F03.90 Unspecified dementia, unspecified severity, without behavioral disturbance, psychotic disturbance, mood disturbance, and anxiety; G43.909 Migraine, unspecified, not intractable, without status migrainosus; K21.9 Gastro-esophageal reflux disease without esophagitis; L40.9 Psoriasis, unspecified; J44.9 Chronic obstructive pulmonary disease, unspecified; Z99.81 Dependence on supplemental oxygen; Z85.51 Personal history of malignant neoplasm of bladder; Z98.890 Other specified postprocedural states; Z90.49 Acquired absence of other specified parts of digestive tract; Z79.01 Long term (current) use of anticoagulants; Z79.51 Long term (current) use of inhaled steroids; Z79.52 Long term (current) use of systemic steroids; Z79.899 Other long term (current) drug therapy
CPT/HCPCS: 81000; 87070; 87077; 87205; 99284

== ENCOUNTER 2021-03-29 19:07 | Emergency (ER) | payer MEDICARE, MEDICAID ==
[~2021-03-29] VITALS: Ht 160 cm; Wt 70.0 kg
[2021-03-29 19:55] LABS: ABG BASE EXCESS -4.7 MMOL/L (-2.5-2.5); ABG OXYGEN SATURATION 96 % (94-100); ABG PCO2 36 MMHG (35-45); ABG PH 7.35 (7.37-7.43); ABG PO2 69 MMHG (79-93); ABG TCO2 21.2 MMOL/L (21.0-31.0); ALLENS TEST POSITIVE; INSPIRED O2 0; PATIENT TEMP 37; VENTILATOR NO
[2021-03-29 19:59] LABS: BASOPHILS % (AUTO) 1 % (0-10); EOSINOPHILS # (AUTO) 0.3 10^3/uL (0.0-0.3); EOSINOPHILS % (AUTO) 4 % (0-10); HEMATOCRIT 41 % (35-52); HEMOGLOBIN 13.1 g/dL (11.5-16.0); LYMPHOCYTES # (AUTO) 1.9 10^3/uL (1.0-4.0); LYMPHOCYTES % (AUTO) 29 % (12-44); MEAN CORPUSCULAR HEMOGLOBIN 30 pg (25-34); MEAN CORPUSCULAR HGB CONC 32 g/dL (32-36); MEAN CORPUSCULAR VOLUME 93 fL (80-99); MEAN PLATELET VOLUME 9.8 fL (9.0-12.2); MONOCYTES # (AUTO) 0.8 10^3/uL (0.0-1.0); MONOCYTES % (AUTO) 12 % (0-12); NEUTROPHILS # (AUTO) 3.7 10^3/uL (1.8-7.8); NEUTROPHILS % (AUTO) 54 % (42-75); PLATELET COUNT 222 10^3/uL (130-400); WHITE BLOOD COUNT 6.7 10^3/uL (4.3-11.0)
--- NOTE | 2021-03-29 20:03 | ED General ---
General Chief Complaint: General Problems/Pain Stated Complaint: TROUBLE BREATHING,LETHARGIC,NAUSEA Source of Information: Patient Exam Limitations: No Limitations History of Present Illness Date Seen by Provider: Mar 29, 2021 Time Seen by Provider: 20:01 Initial Comments To ER with reports of lethargy and nausea as well as severe headache. She has a urostomy and had troubles getting it to drain so she saw a urologist earlier today who did a straight catheterization into this got it to draining again. He gave her a prescription for pain medication but she was not able to take it as s he was very lethargic upon returning home. She then allegedly fell asleep during a phone call with home health nurse Timing/Duration: 1-2 Days Severity: Moderate Associated Systoms: Headaches, Nausea/Vomiting Allergies and Home Medications Allergies Coded Allergies: bacitracin (Verified Allergy, Intermediate, "I BREAK OUT IN A RASH ALL OVER.", 04/20/19) neomycin (Verified Allergy, Intermediate, "I BREAK OUT IN A RASH ALL OVER.", 04/20/19) polymyxin B (Verified Allergy, Intermediate, "I BREAK OUT IN A RASH ALL OVER.", 04/20/19) ibuprofen (Verified Allergy, Mild, RASH, 04/20/19) naproxen (Verified Allergy, Mild, RASH, 04/20/19) tramadol (Verified Allergy, Unknown, 07/01/20) Patient Home Medication List Home Medication List Reviewed: Yes Albuterol Sulfate (Albuterol Sulfate) 2.5 Mg/3 Ml Vial.neb, 2.5 MG NEB Q6H PRN f or SHORTNESS OF BREATH, (Reported) Entered as Reported by: GRETA MANCILLA on 11/26/16 1400 Albuterol Sulfate (Ventolin Hfa) 18 Gm Hfa.aer.ad, 2 PUFF INH QID PRN for SHORTNESS OF BREATH, (Reported) Entered as Reported by: GRETA MANCILLA on 05/21/18 1455 Alosetron HCl (Alosetron HCl) 0.5 Mg Tablet, 0.5 MG PO BID, (Reported) Entered as Reported by: JESSICA GILMORE on 02/28/21 1353 Apixaban (Eliquis) 5 Mg Tablet, 5 MG PO BID, (Reported) Entered as Reported by: GRETA MANCILLA on 07/11/17 1530 Benzonatate (Benzonatate) 100 Mg Capsule, 100 MG PO TID, (Reported) Entered as Reported by: JESSICA GILMORE on 02/28/21 135 Bisacodyl (Bisacodyl) 5 Mg Tablet.dr, 5 MG PO DAILY PRN for CONSTIPATION-1ST LINE, (Reported) Entered as Reported by: JESSICA GILMORE on 02/28/21 135 Buspirone HCl (Buspirone HCl) 5 Mg Tablet, 5 MG PO TID, (Reported) Entered as Reported by: JESSICA GILMORE on 02/28/21 135 Cholecalciferol (Vitamin D3) (Vitamin D3) 25 Mcg Capsule, 25 MCG PO DAILY, (Reported) Entered as Reported by: JESSICA GILMORE on 02/28/21 135 Clonazepam (Clonazepam) 1 Mg Tablet, 1 MG PO BID, (Reported) Entered as Reported by: JAMIE GOVEA on 04/20/19 1024 Colestipol HCl (Colestid) 1 Gm Tab, 1 GM PO BID, (Reported) Entered as Reported by: JESSICA GILMORE on 02/28/21 135 Cyanocobalamin (Vitamin B-12) (Vitamin B-12) 1,000 Mcg Tablet, 1,000 MCG PO DAILY, (Reported) Entered as Reported by: SERENITY COPELAND on 12/30/19 1818 Dapagliflozin Propanediol (Farxiga) 5 Mg Tablet, 5 MG PO DAILY, (Reported) Entered as Reported by: GRETA MANCILLA on 05/21/18 1455 Denosumab (Prolia) 60 Mg/1 Ml Disp.syrin, 60 MG INJ EVERY 6 MONTHS, (Reported) Entered as Reported by: SERENITY COPELAND on 05/05/20 1153 Dicyclomine HCl (Dicyclomine HCl) 20 Mg Tablet, 20 MG PO QID, (Reported) Entered as Reported by: JESSICA GILMORE on 02/28/21 135 Digoxin (Digoxin) 250 Mcg Tablet, 250 MCG PO DAILY, (Reported) Entered as Reported by: SERENITY COPELAND on 12/30/19 1728 Diltiazem HCl (Diltiazem 24Hr Cd) 240 Mg Cap.er.24h, 240 MG PO DAILY, (Reported) Entered as Reported by: JESSICA GILMORE on 02/28/21 135 Donepezil HCl (Donepezil HCl) 10 Mg Tablet, 10 MG PO HS, (Reported) Entered as Reported by: GRETA MANCILLA on 11/26/16 1400 Erenumab-Aooe (Aimovig Autoinjector) 70 Mg/1 Ml Auto.injct, 70 MG MONTHLY, (Reported) Entered as Reported by: SERENITY COPELAND on 12/30/19 1728 Ergocalciferol (Vitamin D2) (Vitamin D2) 1,250 Mcg Capsule, 1,250 MCG PO TWICE WEEKLY, (Reported) Entered as Reported by: JESSICA GILMORE on 02/28/21 135 Famotidine (Pepcid) 40 Mg Tablet, 40 MG PO BID, (Reported) Entered as Reported by: JESSICA GILMORE on 02/28/21 135 Ferrous Sulfate (Ferrous Sulfate) 325 Mg Tablet, 325 MG PO DAILY, (Reported) Entered as Reported by: JESSICA GILMORE on 02/28/21 135 Fluticasone Propionate (Fluticasone Propionate) 16 Gm [place].susp, 2 SPRAYS NS BID PRN for ALLERGIES, (Reported) Entered as Reported by: GRETA MANCILLA on 07/11/17 1530 Hydralazine HCl (Hydralazine HCl) 25 Mg Tablet, 25 MG PO TID, (Reported) Entered as Reported by: JESSICA GILMORE on 02/28/21 135 Hydroxyzine HCl (Hydroxyzine HCl) 25 Mg Tablet, 0.5 MG PO TID PRN for ITCHING Prescribed by: DAVIDSON RIVERS on 09/22/20 1541 L.acidoph & Paracasei,B.lactis (Probiotic) 1 Each Capsule, 1 EACH PO DAILY, (Reported) Entered as Reported by: SERENITY COPELAND on 12/30/19 1818 Lamotrigine (Lamictal) 25 Mg Tablet, 25 MG PO, (Reported) Entered as Reported by: JESSICA GILMORE on 02/28/21 135 Latanoprost/Pf (Latanoprost 0.005% Eye Drop) 7.5 Ml Drops, 7.5 ML OP, (Reported) Entered as Reported by: JESSICA GILMORE on 02/28/21 1353 Levocetirizine Dihydrochloride (Levocetirizine Dihydrochloride) 5 Mg Tablet, 5 MG PO DAILY, (Reported) Entered as Reported by: URSZULA BELL on 05/14/18 0828 Meclizine HCl (Meclizine HCl) 25 Mg Tablet, 25 MG PO Q8H PRN for DIZZINESS, (Reported) Entered as Reported by: JESSICA GILMORE on 02/28/21 135 Meloxicam (Meloxicam) 7.5 Mg Tablet, 7.5 MG PO DAILY, (Reported) Entered as Reported by: JESSICA GILMORE on 02/28/21 135 Memantine HCl (Memantine HCl) 10 Mg Tablet, 10 MG PO HS, (Reported) Entered as Reported by: BIENVENIDO FARRELL on 07/28/15 1444 Metoprolol Succinate (Metoprolol Succinate) 50 Mg Tab.er.24h, 50 MG PO DAILY, (Reported) Entered as Reported by: JESSICA GILMORE on 02/28/21 135 Mirtazapine (Mirtazapine) 45 Mg Tablet, 45 MG PO HS, (Reported) Entered as Reported by: SERENITY COPELAND on 12/30/19 1728 Multivitamin (Multivitamin) 1 Each Tablet, 1 EACH PO DAILY, (Reported) Entered as Reported by: JESSICA GILMORE on 02/28/21 135 Nitrofurantoin Monohyd/M-Cryst (Macrobid 100 mg Capsule) 100 Mg Capsule, 1 TAB PO BID Prescribed by: SHUBHAM CODY on 03/28/21 2319 Nitroglycerin (Nitroglycerin) 0.4 Mg Tab.subl, 0.4 MG SL UD PRN for CHEST PAIN (ANGINA), (Reported) Entered as Reported by: SERENITY COPELAND on 12/30/19 1728 Olanzapine (Olanzapine) 2.5 Mg Tablet, 2.5 MG PO HS, (Reported) Entered as Reported by: JESSICA GILMORE on 02/28/21 135 Ondansetron HCl (Zofran) 4 Mg Tab, 4 MG PO Q8H, (Reported) Entered as Reported by: JESSICA GILMORE on 02/28/21 135 Pantoprazole Sodium (Pantoprazole Sodium) 40 Mg Tablet.dr, 40 MG PO BID, (Reported) Entered as Reported by: GRETA MANCILLA on 05/21/18 1455 Prednisone (Prednisone) 10 Mg Tab, 5 MG PO DAILY, (Reported) Entered as Reported by: SERENITY COPELAND on 05/05/20 1153 Primidone (Mysoline) 250 Mg Tablet, 250 MG PO BID, (Reported) Entered as Reported by: JAMIE GOVEA on 04/20/19 1024 Ropinirole HCl (Ropinirole HCl) 2 Mg Tablet, 2 MG PO HS, (Reported) Entered as Reported by: SERENITY COPELAND on 12/30/19 1728 Sertraline HCl (Sertraline HCl) 100 Mg Tablet, 100 MG PO DAILY, (Reported) Entered as Reported by: GRETA MANCILLA on 07/11/17 1530 Simvastatin (Simvastatin) 20 Mg Tablet, 20 MG PO HS, (Reported) Entered as Reported by: BIENVENIDO FARRELL on 07/28/15 1444 Sucralfate (Carafate) 1 Gm Tablet, 1 GM PO QID, (Reported) Entered as Reported by: JESSICA GILMORE on 02/28/21 1354 Sumatriptan Succinate (Imitrex) 100 Mg Tablet, 100 MG PO DAILY PRN, (Reported) Entered as Reported by: JESSICA GILMORE on 02/28/21 1353 Venlafaxine HCl (Venlafaxine HCl) 75 Mg Tab, 75 MG PO DAILY, (Reported) Entered as Reported by: JESSICA GILMORE on 02/28/21 1354 Review of Systems Review of Systems Constitutional: see HPI EENTM: see HPI Respiratory: no symptoms reported Cardiovascular: no symptoms reported Genitourinary: no symptoms reported Musculoskeletal: no symptoms reported Skin: no symptoms reported Psychiatric/Neurological: No Symptoms Reported Hematologic/Lymphatic: No Symptoms Reported Immunological/Allergic: no symptoms reported Past Jaajmxb-Qqekip-Xxocfk Hx Immunizations Up To Date Tetanus Booster (TDap): Unknown PED Vaccines UTD: No First/Initial COVID19 Vaccinat: YES Second COVID19 Vaccination Hugo: YES Third COVID19 Vaccination Date: MAR 2021 Seasonal Allergies Seasonal Allergies: No Past Medical History Surgeries: Yes (4 neck surgeries, thumb surgery both hands, bilat carple tunnel, bilat hip) Abdominal, Appendectomy, Bladder Surgery, Cardiac, Gallbladder, Joint Replacement, Orthopedic, Pancreatic, Tubal Ligation Respiratory: Yes (O2 AT HS & DURING DAY PRN) Asthma, COPD Currently Using CPAP: No Currently Using BIPAP: No Cardiac: Yes Atrial Fibrillation, Coronary Artery Disease, High Cholesterol, Hypertension, Irregular Heartbeat, Palpitations, Peripheral Vascular Neurological: Yes Dementia, Headaches /Migraines, Neuropathy 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 Disorders: No 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 Disorders: Denies 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 Sexually Transmitted Disease: No HIV/AIDS: No Genitourinary: Yes (SUPRAPUBIC CATH ) UTI-Chronic Gastrointestinal: Yes Gastroesophageal Reflux, Polyps, Hiatal Hernia, Gall Bladder Disease Musculoskeletal: Yes (CBP chronic knee pain, HIP REPLACEMENT 02/08/19) Arthritis Endocrine: Yes Hypothyroidsim, Diabetes, Non-Insulin dep HEENT: Yes (cataracts removed) Cataract Loss of Vision: Denies Hearing Impairment: Denies Cancer: Yes Bladder Did You Recieve Any Treatments: Yes What Type of Treatment Did You: Surgical Intervention Psychosocial: Yes Anxiety, Depression Integumentary: No Psoriasis Blood Disorders: No Adverse Reaction/Blood Tranf: No Family Medical History Cardiovascular disease G8 BROTHER (TRIPLE BYPASS) Diabetes mellitus 19 MOTHER FH: COPD (chronic obstructive pulmonary disease) 19 MOTHER FH: breast cancer 19 MOTHER FHx: brain cancer 19 FATHER No Pertinent Family Hx Physical Exam Vital Signs Capillary Refill : Height, Weight, BMI Height: 5'4.00" Weight: 165lbs. 0.0oz. [id number]; 27.00 BMI Method:Stated General Appearance: Obese, Other (Stoma to the right side of the abdomen is draining clear yellow urine) Eyes: Bilateral Eye Normal Inspection, Bilateral Eye PERRL, Bilateral Eye EOMI HEENT: PERRL/EOMI, TMs Normal Neck: Full Range of Motion, Normal Inspection Respiratory: No Accessory Muscle Use, No Respiratory Distress Cardiovascular: Regular Rate, Rhythm, Normal Peripheral Pulses Gastrointestinal: Non Tender, Soft Neurologic/Psychiatric: Alert, Oriented x3 Skin: Normal Color, Warm/Dry Progress/Results/Core Measures Suspected Sepsis SIRS Temperature: Pulse: Respiratory Rate: Laboratory Tests 03/29/21 19:45: White Blood Count 6.7 Blood Pressure / Mean: Laboratory Tests 03/29/21 19:45: Creatinine 0.69, Platelet Count 222, Total Bilirubin 0.2 Results/Orders Lab Results Laboratory Tests Test 03/29/21 19:30 03/29/21 19:45 03/29/21 20:55 Range/Units Blood Gas Puncture Site RIGHT RADIAL Blood Gas Patient Temperature 37 Arterial Blood pH 7.35 L 7.37-7.43 Arterial Blood Partial Pressure CO2 36 35-45 MMHG Arterial Blood Partial Pressure O2 69 L 79-93 MMHG Arterial Blood HCO3 20 L 23-27 MMOL/L Arterial Blood Total CO2 21.2 21.0-31.0 MMOL/L Arterial Blood Oxygen Saturation 96 94-100 % Arterial Blood Base Excess -4.7 L -2.5-2.5 MMOL/L Aamir Test POSITIVE Blood Gas Ventilator Setting NO Blood Gas Inspired Oxygen 0 White Blood Count 6.7 4.3-11.0 10^3/uL Red Blood Count 4.40 3.80-5.11 10^6/uL Hemoglobin 13.1 11.5-16.0 g/dL Hematocrit 41 35-52 % Mean Corpuscular Volume 93 80-99 fL Mean Corpuscular Hemoglobin 30 25-34 pg Mean Corpuscular Hemoglobin Concent 32 32-36 g/dL Red Cell Distribution Width 15.1 H 10.0-14.5 % Platelet Count 222 130-400 10^3/uL Mean Platelet Volume 9.8 9.0-12.2 fL Immature Granulocyte % (Auto) 0 % Neutrophils (%) (Auto) 54 42-75 % Lymphocytes (%) (Auto) 29 12-44 % Monocytes (%) (Auto) 12 0-12 % Eosinophils (%) (Auto) 4 0-10 % Basophils (%) (Auto) 1 0-10 % Neutrophils # (Auto) 3.7 1.8-7.8 10^3/uL Lymphocytes # (Auto) 1.9 1.0-4.0 10^3/uL Monocytes # (Auto) 0.8 0.0-1.0 10^3/uL Eosinophils # (Auto) 0.3 0.0-0.3 10^3/uL Basophils # (Auto) 0.0 0.0-0.1 10^3/uL Immature Granulocyte # (Auto) 0.0 0.0-0.1 10^3/uL Sodium Level 141 135-145 MMOL/L Potassium Level 4.0 3.6-5.0 MMOL/L Chloride Level 114 H 98-107 MMOL/L Carbon Dioxide Level 18 L 21-32 MMOL/L Anion Gap 9 5-14 MMOL/L Blood Urea Nitrogen 22 H 7-18 MG/DL Creatinine 0.69 0.60-1.30 MG/DL Estimat Glomerular Filtration Rate 85 BUN/Creatinine Ratio 32 Glucose Level 120 H 70-105 MG/DL Calcium Level 9.0 8.5-10.1 MG/DL Corrected Calcium 9.1 8.5-10.1 MG/DL Total Bilirubin 0.2 0.1-1.0 MG/DL Aspartate Amino Transf (AST/SGOT) 34 5-34 U/L Alanine Aminotransferase (ALT/SGPT) 39 0-55 U/L Alkaline Phosphatase 76 40-136 U/L Total Protein 6.7 6.4-8.2 GM/DL Albumin 3.9 3.2-4.5 GM/DL Urine Color YELLOW Urine Clarity CLEAR Urine pH 7.5 5-9 Urine Specific [place] 1.010 L 1.016-1.022 Urine Protein NEGATIVE NEGATIVE Urine Glucose (UA) NEGATIVE NEGATIVE Urine Ketones NEGATIVE NEGATIVE Urine Nitrite NEGATIVE NEGATIVE Urine Bilirubin NEGATIVE NEGATIVE Urine Urobilinogen 0.2 < = 1.0 MG/DL Urine Leukocyte Esterase 1+ H NEGATIVE Urine RBC (Auto) 2+ H NEGATIVE Urine RBC 2-5 H /HPF Urine WBC 2-5 /HPF Urine Crystals PRESENT H /LPF Urine Triple Phosphate Crystals FEW H /LPF Urine Bacteria TRACE /HPF Urine Casts NONE /LPF Urine Mucus NEGATIVE /LPF Urine Culture Indicated NO My Orders Orders - SRAVAN BRUCE APRN Cbc With Automated Diff (03/29/21 19:52) Comprehensive Metabolic Panel (03/29/21 19:52) Ct Head Wo (03/29/21 19:52) Ua Culture If Indicated (03/29/21 19:52) Ed Iv/Invasive Line Start (03/29/21 19:52) Vital Signs/I&O Capillary Refill : Departure Impression Primary Impression: Transient lethargy Additional Impression: Chronic pain Disposition: 01 HOME, SELF-CARE Condition: Stable Departure-Patient Inst. Decision time for Depature: 21:43 Referrals: VIIPN GOODMAN DO (PCP/Family) Primary Care Physician Patient Instructions: NO INSTRUCTIONS GIVEN Add. Discharge Instructions: All discharge instructions reviewed with patient and/or family. Voiced understa nding. SRAVAN BRUCE APRN Mar 29, 2021 20:03
--- NOTE | 2021-03-29 20:25 | Diagnostic Imaging Report ---
PROCEDURE: CT head without contrast. TECHNIQUE: Multiple contiguous axial images were obtained through the brain without the use of intravenous contrast. Auto Exposure Controls were utilized during the CT exam to meet ALARA standards for radiation dose reduction. INDICATION: Headache. COMPARISON: Prior examination from 04/26/2020 FINDINGS: The ventricles and sulci are within normal limits. There is no hydrocephalus or cerebral edema. There is no midline shift or mass effect. There is no intracranial mass, hemorrhage, or extra-axial fluid collection. The visualized paranasal sinuses and mastoid air cells are clear. There are no regional areas of decreased attenuation appreciated to suggest an acute CVA. IMPRESSION: No acute intracranial abnormality. Dictated by: Dictated on workstation # [id number]
[2021-03-29 20:28] LABS: BILIRUBIN,TOTAL 0.2 MG/DL (0.1-1.0); CREATININE SERUM 0.69 MG/DL (0.60-1.30); TOTAL PROTEIN 6.7 GM/DL (6.4-8.2)
[2021-03-29 21:04] LABS: BILIRUBIN,URINE NEGATIVE (NEGATIVE); CLARITY,URINE CLEAR; COLOR,URINE YELLOW; GLUCOSE, URINE (UA) NEGATIVE (NEGATIVE); KETONES,URINE NEGATIVE (NEGATIVE); LEUKOCYTE ESTERASE ,URINE 1+ (NEGATIVE); NITRITE,URINE NEGATIVE (NEGATIVE); PH,URINE 7.5 (5-9); PROTEIN,URINE NEGATIVE (NEGATIVE)
[2021-03-29 21:24] LABS: BACTERIA,URINE TRACE /HPF; TRIPLE PHOSPHATE CRYSTAL,UR FEW /LPF
[2021-03-29 21:29] LABS: ALBUMIN 3.9 GM/DL (3.2-4.5)
[2021-03-29 21:57] VITALS: BP 138/76
== END 2021-03-29 22:02 | disposition home or self-care (01) ==
LOC: EDUNIT# 19:07 → ER 19:10
DX: R53.83 Other fatigue (principal); G89.29 Other chronic pain; J44.9 Chronic obstructive pulmonary disease, unspecified; I10 Essential (primary) hypertension; F03.90 Unspecified dementia, unspecified severity, without behavioral disturbance, psychotic disturbance, mood disturbance, and anxiety; I25.10 Atherosclerotic heart disease of native coronary artery without angina pectoris; E78.00 Pure hypercholesterolemia, unspecified; K21.9 Gastro-esophageal reflux disease without esophagitis; F32.9 Major depressive disorder, single episode, unspecified; F41.9 Anxiety disorder, unspecified; E11.9 Type 2 diabetes mellitus without complications; E66.9 Obesity, unspecified; I48.91 Unspecified atrial fibrillation; G43.909 Migraine, unspecified, not intractable, without status migrainosus; Z68.27 Body mass index [BMI] 27.0-27.9, adult; Z79.01 Long term (current) use of anticoagulants; Z79.899 Other long term (current) drug therapy
CPT/HCPCS: 36415; 70450; 80053; 81000; 82805; 85025

== ENCOUNTER → 2021-04-30 | Outpatient (CLI) | payer MEDICARE, MEDICAID | LOC: LABNPT 05:53 | PROVIDERS: ATTEND Emergency Medicine | DX: Z01.812 Encounter for preprocedural laboratory examination (principal); Z20.822 Contact with and (suspected) exposure to COVID-19 | CPT/HCPCS: 87635 ==

== ENCOUNTER → 2021-05-23 | Outpatient (CLI) | payer MEDICARE, MEDICAID | LOC: LAB 07:22 | PROVIDERS: ATTEND Internal Medicine Gastroenterology | DX: K58.9 Irritable bowel syndrome, unspecified (principal) | CPT/HCPCS: 36415; 83690 ==

== ENCOUNTER 2021-05-26 12:29 | Emergency (ER) | payer MEDICARE, MEDICAID ==
[~2021-05-26] VITALS: Ht 160 cm; Wt 68.0 kg
[2021-05-26] MEDS ORDERED: LACTATED RINGERS 1,000 ML IV SCH (12:45)
[2021-05-26] MEDS ORDERED: ONDANSETRON 4 MG/2 ML (SDV) Z0FRAN IVP ONE (12:45)
[2021-05-26] MEDS ORDERED: LOPERAMIDE 2 MG (IMODIUM) TABLET PO ONE (12:45)
--- NOTE | 2021-05-26 12:50 | ED GI ---
General Chief Complaint: Abdominal/GI Problems Stated Complaint: DIARRHEA Source of Information: Patient Exam Limitations: No Limitations History of Present Illness Date Seen by Provider: May 26, 2021 Time Seen by Provider: 12:49 Initial Comments To ER with abdominal cramping nausea and diarrhea onset this morning. She is "missed her pants" 5 times this morning. Reports that she is not on any opiates though Rocky elizabeth would report that she should be is she certainly had a high volume of them over the course of the past month. She states that she does not remember them and is not sure when she ran out. Rocky johnson shows that she, since April 07 of this year, has had a total of 120 hydrocodone 10/325 filled. The most recent of these prescriptions was on 05/18/2021 for a quantity of 40 which was a 7-day supply. She has also had 30 Percocet 5/325 and 30 oxycodone immediate release 5 mg tablets but she does not remember these. Timing/Duration: 12 Hours Severity/Quality: Moderate Location: Generalized Abdomen Radiation: No Radiation Activities at Onset: None Associated Symptoms: Nausea/Vomiting Allergies and Home Medications Allergies Coded Allergies: bacitracin (Verified Allergy, Intermediate, "I BREAK OUT IN A RASH ALL OVER.", 04/20/19) neomycin (Verified Allergy, Intermediate, "I BREAK OUT IN A RASH ALL OVER.", 04/20/19) polymyxin B (Verified Allergy, Intermediate, "I BREAK OUT IN A RASH ALL OVER.", 04/20/19) ibuprofen (Verified Allergy, Mild, RASH, 04/20/19) naproxen (Verified Allergy, Mild, RASH, 04/20/19) tramadol (Verified Allergy, Unknown, 07/01/20) Patient Home Medication List Home Medication List Reviewed: Yes Albuterol Sulfate (Albuterol Sulfate) 2.5 Mg/3 Ml Vial.neb, 2.5 MG NEB Q6H PRN for SHORTNESS OF BREATH, (Reported) Entered as Reported by: GRETA MANCILLA on 11/26/16 1400 Albuterol Sulfate (Ventolin Hfa) 18 Gm Hfa.aer.ad, 2 PUFF INH QID PRN for SHORTNESS OF BREATH, (Reported) Entered as Reported by: GRETA MANCILLA on 05/21/18 1455 Alosetron HCl (Alosetron HCl) 0.5 Mg Tablet, 0.5 MG PO BID, (Reported) Entered as Reported by: JESSICA GILMORE on 02/28/21 135 Apixaban (Eliquis) 5 Mg Tablet, 5 MG PO BID, (Reported) Entered as Reported by: GRETA MANCILLA on 07/11/17 1530 Benzonatate (Benzonatate) 100 Mg Capsule, 100 MG PO TID, (Reported) Entered as Reported by: JESSICA GILMORE on 02/28/21 135 Bisacodyl (Bisacodyl) 5 Mg Tablet.dr, 5 MG PO DAILY PRN for CONSTIPATION-1ST LINE, (Reported) Entered as Reported by: JESSICA GILMORE on 02/28/21 135 Buspirone HCl (Buspirone HCl) 5 Mg Tablet, 5 MG PO TID, (Reported) Entered as Reported by: JESSICA GILMORE on 02/28/21 135 Cholecalciferol (Vitamin D3) (Vitamin D3) 25 Mcg Capsule, 25 MCG PO DAILY, (Reported) Entered as Reported by: JESSICA GILMORE on 02/28/21 135 Clonazepam (Clonazepam) 1 Mg Tablet, 1 MG PO BID, (Reported) Entered as Reported by: JAMIE GOVEA on 04/20/19 1024 Colestipol HCl (Colestid) 1 Gm Tab, 1 GM PO BID, (Reported) Entered as Reported by: JESSICA GILMORE on 02/28/21 135 Cyanocobalamin (Vitamin B-12) (Vitamin B-12) 1,000 Mcg Tablet, 1,000 MCG PO DAILY, (Reported) Entered as Reported by: SERENITY COPELAND on 12/30/19 1818 Dapagliflozin Propanediol (Farxiga) 5 Mg Tablet, 5 MG PO DAILY, (Reported) Entered as Reported by: GRETA MANCILLA on 05/21/18 1455 Denosumab (Prolia) 60 Mg/1 Ml Disp.syrin, 60 MG INJ EVERY 6 MONTHS, (Reported) Entered as Reported by: SERENITY COPELAND on 05/05/20 1153 Dicyclomine HCl (Dicyclomine HCl) 20 Mg Tablet, 20 MG PO QID, (Reported) Entered as Reported by: JESSICA GILMORE on 02/28/21 1353 Digoxin (Digoxin) 250 Mcg Tablet, 250 MCG PO DAILY, (Reported) Entered as Reported by: SERENITY COPELAND on 12/30/19 1728 Diltiazem HCl (Diltiazem 24Hr Cd) 240 Mg Cap.er.24h, 240 MG PO DAILY, (Reported) Entered as Reported by: JESSICA GILMORE on 02/28/21 1353 Donepezil HCl (Donepezil HCl) 10 Mg Tablet, 10 MG PO HS, (Reported) Entered as Reported by: GRETA MANCILLA on 11/26/16 1400 Erenumab-Aooe (Aimovig Autoinjector) 70 Mg/1 Ml Auto.injct, 70 MG MONTHLY, (Reported) Entered as Reported by: SERENITY COPELAND on 12/30/19 1728 Ergocalciferol (Vitamin D2) (Vitamin D2) 1,250 Mcg Capsule, 1,250 MCG PO TWICE WEEKLY, (Reported) Entered as Reported by: JESSICA GILMORE on 02/28/21 1353 Famotidine (Pepcid) 40 Mg Tablet, 40 MG PO BID, (Reported) Entered as Reported by: JESSICA GILMORE on 02/28/21 1353 Ferrous Sulfate (Ferrous Sulfate) 325 Mg Tablet, 325 MG PO DAILY, (Reported) Entered as Reported by: JESSICA GILMORE on 02/28/21 1353 Fluticasone Propionate (Fluticasone Propionate) 16 Gm [place].susp, 2 SPRAYS NS BID PRN for ALLERGIES, (Reported) Entered as Reported by: GRETA MANCILLA on 07/11/17 1530 Hydralazine HCl (Hydralazine HCl) 25 Mg Tablet, 25 MG PO TID, (Reported) Entered as Reported by: JESSICA IGLMORE on 02/28/21 1353 Hydroxyzine HCl (Hydroxyzine HCl) 25 Mg Tablet, 0.5 MG PO TID PRN for ITCHING Prescribed by: DAVIDSON RIVERS on 09/22/20 1541 L.acidoph & Paracasei,B.lactis (Probiotic) 1 Each Capsule, 1 EACH PO DAILY, (Reported) Entered as Reported by: SERENITY COPELAND on 12/30/19 1818 Lamotrigine (Lamictal) 25 Mg Tablet, 25 MG PO, (Reported) Entered as Reported by: JESSICA GILMORE on 02/28/21 135 Latanoprost/Pf (Latanoprost 0.005% Eye Drop) 7.5 Ml Drops, 7.5 ML OP, (Reported) Entered as Reported by: JESSICA GILMORE on 02/28/21 135 Levocetirizine Dihydrochloride (Levocetirizine Dihydrochloride) 5 Mg Tablet, 5 MG PO DAILY, (Reported) Entered as Reported by: URSZULA BELL on 05/14/18 0828 Meclizine HCl (Meclizine HCl) 25 Mg Tablet, 25 MG PO Q8H PRN for DIZZINESS, (Reported) Entered as Reported by: JESSICA GILMORE on 02/28/21 135 Meloxicam (Meloxicam) 7.5 Mg Tablet, 7.5 MG PO DAILY, (Reported) Entered as Reported by: JESSICA GILMORE on 02/28/21 135 Memantine HCl (Memantine HCl) 10 Mg Tablet, 10 MG PO HS, (Reported) Entered as Reported by: BIENVENIDO FARRELL on 07/28/15 1444 Metoprolol Succinate (Metoprolol Succinate) 50 Mg Tab.er.24h, 50 MG PO DAILY, (Reported) Entered as Reported by: JESSICA GILMORE on 02/28/21 135 Mirtazapine (Mirtazapine) 45 Mg Tablet, 45 MG PO HS, (Reported) Entered as Reported by: SERENITY COPELAND on 12/30/19 1728 Multivitamin (Multivitamin) 1 Each Tablet, 1 EACH PO DAILY, (Reported) Entered as Reported by: JESSICA GILMORE on 02/28/21 135 Nitrofurantoin Monohyd/M-Cryst (Macrobid 100 mg Capsule) 100 Mg Capsule, 1 TAB PO BID Prescribed by: SHUBHAM CODY on 03/28/21 2319 Nitroglycerin (Nitroglycerin) 0.4 Mg Tab.subl, 0.4 MG SL UD PRN for CHEST PAIN (ANGINA), (Reported) Entered as Reported by: SERENITY COPELAND on 12/30/19 172 Olanzapine (Olanzapine) 2.5 Mg Tablet, 2.5 MG PO HS, (Reported) Entered as Reported by: JESSICA GILMORE on 02/28/21 135 Ondansetron (Ondansetron Odt) 8 Mg Tab.rapdis, 8 MG PO Q6H PRN for NAUSEA/VOMITING Prescribed by: SRAVAN BRUCE on 05/26/21 1321 Ondansetron HCl (Zofran) 4 Mg Tab, 4 MG PO Q8H, (Reported) Entered as Reported by: JESSICA GILMORE on 02/28/21 1354 Pantoprazole Sodium (Pantoprazole Sodium) 40 Mg Tablet.dr, 40 MG PO BID, (Reported) Entered as Reported by: GRETA MANCILLA on 05/21/18 1455 Prednisone (Prednisone) 10 Mg Tab, 5 MG PO DAILY, (Reported) Entered as Reported by: SERENITY COPELAND on 05/05/20 1153 Primidone (Mysoline) 250 Mg Tablet, 250 MG PO BID, (Reported) Entered as Reported by: JAMIE GOVEA on 04/20/19 1024 Ropinirole HCl (Ropinirole HCl) 2 Mg Tablet, 2 MG PO HS, (Reported) Entered as Reported by: SERENITY COPELAND on 12/30/19 1728 Sertraline HCl (Sertraline HCl) 100 Mg Tablet, 100 MG PO DAILY, (Reported) Entered as Reported by: GRETA MANCILLA on 07/11/17 1530 Simvastatin (Simvastatin) 20 Mg Tablet, 20 MG PO HS, (Reported) Entered as Reported by: BIENVENIDO FARRELL on 07/28/15 1444 Sucralfate (Carafate) 1 Gm Tablet, 1 GM PO QID, (Reported) Entered as Reported by: JESSICA GILMORE on 02/28/21 1354 Sumatriptan Succinate (Imitrex) 100 Mg Tablet, 100 MG PO DAILY PRN, (Reported) Entered as Reported by: JESSICA GILMORE on 02/28/21 1353 Venlafaxine HCl (Venlafaxine HCl) 75 Mg Tab, 75 MG PO DAILY, (Reported) Entered as Reported by: JESSICA GILMORE on 02/28/21 1354 Review of Systems Review of Systems Constitutional: see HPI EENTM: No Symptoms Reported Respiratory: No Symptoms Reported Cardiovascular: No Symptoms Reported Gastrointestinal: See HPI, Abdominal Pain, Diarrhea, Nausea Genitourinary: No Symptoms Reported Musculoskeletal: no symptoms reported Skin: no symptoms reported Psychiatric/Neurological: No Symptoms Reported Endocrine: No Symptoms Reported Hematologic/Lymphatic: No Symptoms Reported Past Grxxoyl-Fpqiza-Wulnwd Hx Patient Social History Tobacco Use?: Yes Tobacco type used: Cigarettes Use of E-Cig and/or Vaping dev: No Substance use?: No Alcohol Use?: No Immunizations Up To Date Tetanus Booster (TDap): Unknown PED Vaccines UTD: No Influenza Vaccine Up-to-Date: Yes; Up-to-Date First/Initial COVID19 Vaccinat: 2020 Second COVID19 Vaccination Hugo: 2020 Third COVID19 Vaccination Date: MAR 2021 COVID19 Vaccine 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: [employer] Seasonal Allergies Seasonal Allergies: No Past Medical History Surgeries: Yes (4 neck surgeries, thumb surgery both hands, bilat carple tunnel, bilat hip) Abdominal, Appendectomy, Bladder Surgery, Cardiac, Gallbladder, Joint Replacement, Orthopedic, Pancreatic, Tubal Ligation Respiratory: Yes (O2 AT HS & DURING DAY PRN) Asthma, COPD Currently Using CPAP: No Currently Using BIPAP: No Cardiac: Yes Atrial Fibrillation, Coronary Artery Disease, High Cholesterol, Hypertension, Irregular Heartbeat, Palpitations, Peripheral Vascular Neurological: Yes Dementia, Headaches /Migraines, Neuropathy 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 Disorders: No 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 Disorders: Denies 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 Sexually Transmitted Disease: No HIV/AIDS: No Genitourinary: Yes (SUPRAPUBIC CATH ) UTI-Chronic Gastrointestinal: Yes Gastroesophageal Reflux, Polyps, Hiatal Hernia, Gall Bladder Disease Musculoskeletal: Yes (CBP chronic knee pain, HIP REPLACEMENT 02/08/19) Arthritis Endocrine: Yes Hypothyroidsim, Diabetes, Non-Insulin dep HEENT: Yes (cataracts removed) Cataract Loss of Vision: Denies Hearing Impairment: Denies Cancer: Yes Bladder Did You Recieve Any Treatments: Yes What Type of Treatment Did You: Surgical Intervention Psychosocial: Yes Anxiety, Depression Integumentary: No Psoriasis Blood Disorders: No Adverse Reaction/Blood Tranf: No Family Medical History Cardiovascular disease G8 BROTHER (TRIPLE BYPASS) Diabetes mellitus 19 MOTHER FH: COPD (chronic obstructive pulmonary disease) 19 MOTHER FH: breast cancer 19 MOTHER FHx: brain cancer 19 FATHER No Pertinent Family Hx Physical Exam Vital Signs Vital Signs - First Documented 05/26/21 12:35 Temp 36.1 Pulse 97 Resp 24 B/P (MAP) 152/82 (105) Pulse Ox 93 O2 Delivery Nasal Cannula O2 Flow Rate 2.00 Capillary Refill : Height/Weight/BMI Height: 5'4.00" Weight: 165lbs. 0.0oz. 72.701154yx; 27.00 BMI Method:Stated General Appearance: WD/WN, no apparent distress Respiratory: no respiratory distress, no accessory muscle use Cardiovascular: regular rate, rhythm, no murmur Gastrointestinal: normal bowel sounds, non tender, soft Extremities: normal range of motion, non-tender Neurologic/Psychiatric: alert, normal mood/affect, abnormal cerebellar tests Skin: normal color, warm/dry Progress/Results/Core Measures Results/Orders Lab Results Laboratory Tests Test 05/26/21 12:40 Range/Units White Blood Count 12.4 H 4.3-11.0 10^3/uL Red Blood Count 4.93 3.80-5.11 10^6/uL Hemoglobin 14.9 11.5-16.0 g/dL Hematocrit 47 35-52 % Mean Corpuscular Volume 95 80-99 fL Mean Corpuscular Hemoglobin 30 25-34 pg Mean Corpuscular Hemoglobin Concent 32 32-36 g/dL Red Cell Distribution Width 14.4 10.0-14.5 % Platelet Count 296 130-400 10^3/uL Mean Platelet Volume 9.4 9.0-12.2 fL Immature Granulocyte % (Auto) 1 % Neutrophils (%) (Auto) 68 42-75 % Lymphocytes (%) (Auto) 20 12-44 % Monocytes (%) (Auto) 9 0-12 % Eosinophils (%) (Auto) 2 0-10 % Basophils (%) (Auto) 0 0-10 % Neutrophils # (Auto) 8.4 H 1.8-7.8 10^3/uL Lymphocytes # (Auto) 2.5 1.0-4.0 10^3/uL Monocytes # (Auto) 1.1 H 0.0-1.0 10^3/uL Eosinophils # (Auto) 0.3 0.0-0.3 10^3/uL Basophils # (Auto) 0.1 0.0-0.1 10^3/uL Immature Granulocyte # (Auto) 0.1 0.0-0.1 10^3/uL Sodium Level 137 135-145 MMOL/L Potassium Level 3.9 3.6-5.0 MMOL/L Chloride Level 106 98-107 MMOL/L Carbon Dioxide Level 17 L 21-32 MMOL/L Anion Gap 14 5-14 MMOL/L Blood Urea Nitrogen 15 7-18 MG/DL Creatinine 0.79 0.60-1.30 MG/DL Estimat Glomerular Filtration Rate 82 BUN/Creatinine Ratio 19 Glucose Level 183 H 70-105 MG/DL Calcium Level 9.4 8.5-10.1 MG/DL Corrected Calcium 9.2 8.5-10.1 MG/DL Total Bilirubin 0.4 0.1-1.0 MG/DL Aspartate Amino Transf (AST/SGOT) 62 H 5-34 U/L Alanine Aminotransferase (ALT/SGPT) 87 H 0-55 U/L Alkaline Phosphatase 109 40-136 U/L Total Protein 7.3 6.4-8.2 GM/DL Albumin 4.2 3.2-4.5 GM/DL Lipase 88 H 8-78 U/L My Orders Orders - SRAVAN BRUCE APRN Cbc With Automated Diff (05/26/21 12:44) Comprehensive Metabolic Panel (05/26/21 12:44) Ed Iv/Invasive Line Start (05/26/21 12:44) Ondansetron Injection (Zofran Injectio (05/26/21 12:45) Loperamide Tablet (Imodium Tablet) (05/26/21 12:45) Lactated Ringers (Lr 1000 Ml Iv Solution (05/26/21 12:45) Acute Abd Series (05/26/21 12:50) Lipase (05/26/21 12:54) Acetaminophen Tablet/Caplet (Tylenol T (05/26/21 13:30) Medications Given in ED Current Medications Medications Dose Ordered Sig/[place] Route Start Time Stop Time Status Last Admin Dose Admin Loperamide HCl 4 mg ONCE ONCE PO 05/26/21 12:45 05/26/21 12:46 DC 05/26/21 13:04 4 MG Ondansetron HCl 4 mg ONCE ONCE IVP 05/26/21 12:45 05/26/21 12:46 DC 05/26/21 13:05 4 MG Vital Signs/I&O 05/26/21 12:35 Temp 36.1 Pulse 97 Resp 24 B/P (MAP) 152/82 (105) Pulse Ox 93 O2 Delivery Nasal Cannula O2 Flow Rate 2.00 Departure Communication (Admissions) NAME: MINGO JOSÉ REC#: [id number] PT STATUS: REG ER : 1955 PHYSICIAN: SRAVAN BRUCE APRN ADMIT DATE: 05/26/21/ER Draft Date of Exam:05/26/21 ACUTE ABD SERIES HISTORY: Diarrhea and abdominal pain. TECHNIQUE: Frontal view of the chest. Supine and upright frontal views of the abdomen. COMPARISON: 10/05/2020. FINDINGS: Lung volumes are normal. There are mild interstitial opacities in the right lung base. There is no pleural effusion or pneumothorax. The cardiac silhouette is normal in size. Cervical spine fusion hardware is noted. The stomach is moderately distended with gas. No small bowel distention or large bowel distention is appreciated. There are bilateral hip arthroplasties. IMPRESSION: 1. Gastric distention with air with no evidence of small bowel obstruction or large collection of free air. 2. Interstitial opacities in the right lung base, may be due to infection in the appropriate clinical setting. Dictated on workstation # [id number] Dict: 05/26/21 1337 Trans: 05/26/21 1405 [id number] Interpreted by: FAISAL SURESH MD Electronically signed by: Impression Primary Impression: Opiate withdrawal Additional Impression: Opioid dependence Disposition: 01 HOME, SELF-CARE Condition: Stable Departure-Patient Inst. Decision time for Depature: 13:19 Referrals: VIPIN GOODMAN DO (PCP/Family) Primary Care Physician Patient Instructions: Prescription Opioid Use Disorder ED Add. Discharge Instructions: 1. Use [id number] Imodium to control the diarrhea. Use the nausea medication as prescribed. Your symptoms are caused by withdrawal from the excessive amounts of pain pills that you take. All discharge instructions reviewed with patient and/or family. Voiced u nderstanding. Scripts Ondansetron (Ondansetron Odt) 8 Mg Tab.rapdis 8 MG PO Q6H PRN for NAUSEA/VOMITING, #14 TAB Prov: SRAVAN BRUCE APRN 05/26/21 SRAVAN BRUCE APRN May 26, 2021 12:50
[2021-05-26 12:52] LABS: BASOPHILS # (AUTO) 0.1 10^3/uL (0.0-0.1); BASOPHILS % (AUTO) 0 % (0-10); EOSINOPHILS # (AUTO) 0.3 10^3/uL (0.0-0.3); EOSINOPHILS % (AUTO) 2 % (0-10); HEMATOCRIT 47 % (35-52); HEMOGLOBIN 14.9 g/dL (11.5-16.0); LYMPHOCYTES # (AUTO) 2.5 10^3/uL (1.0-4.0); LYMPHOCYTES % (AUTO) 20 % (12-44); MEAN CORPUSCULAR HEMOGLOBIN 30 pg (25-34); MEAN CORPUSCULAR HGB CONC 32 g/dL (32-36); MEAN CORPUSCULAR VOLUME 95 fL (80-99); MEAN PLATELET VOLUME 9.4 fL (9.0-12.2); MONOCYTES # (AUTO) 1.1 10^3/uL (0.0-1.0); MONOCYTES % (AUTO) 9 % (0-12); NEUTROPHILS # (AUTO) 8.4 10^3/uL (1.8-7.8); NEUTROPHILS % (AUTO) 68 % (42-75); PLATELET COUNT 296 10^3/uL (130-400); WHITE BLOOD COUNT 12.4 10^3/uL (4.3-11.0)
[2021-05-26 13:11] LABS: ALBUMIN 4.2 GM/DL (3.2-4.5); POTASSIUM 3.9 MMOL/L (3.6-5.0)
[2021-05-26 13:13] LABS: CALCIUM 9.4 MG/DL (8.5-10.1)
[2021-05-26 13:14] LABS: TOTAL PROTEIN 7.3 GM/DL (6.4-8.2)
[2021-05-26 13:16] LABS: BILIRUBIN,TOTAL 0.4 MG/DL (0.1-1.0)
[2021-05-26 13:17] LABS: CREATININE SERUM 0.79 MG/DL (0.60-1.30)
[2021-05-26] MEDS ORDERED: ONDA8TAB13 PO (13:21)
[2021-05-26] MEDS ORDERED: ACETAMINOPHEN 325 MG TABLET PO ONE (13:30)
--- NOTE | 2021-05-26 14:05 | Diagnostic Imaging Report ---
HISTORY: Diarrhea and abdominal pain. TECHNIQUE: Frontal view of the chest. Supine and upright frontal views of the abdomen. COMPARISON: 10/05/2020. FINDINGS: Lung volumes are normal. There are mild interstitial opacities in the right lung base. There is no pleural effusion or pneumothorax. The cardiac silhouette is normal in size. Cervical spine fusion hardware is noted. The stomach is moderately distended with gas. No small bowel distention or large bowel distention is appreciated. There are bilateral hip arthroplasties. IMPRESSION: 1. Gastric distention with air with no evidence of small bowel obstruction or large collection of free air. 2. Interstitial opacities in the right lung base, may be due to infection in the appropriate clinical setting. Dictated by: Dictated on workstation # [id number]
[2021-05-26 14:18] VITALS: BP 110/63
== END 2021-05-26 14:18 | disposition home or self-care (01) ==
LOC: EDUNIT# 12:29 → ER 12:31
DX: F11.23 Opioid dependence with withdrawal (principal); I10 Essential (primary) hypertension; E11.40 Type 2 diabetes mellitus with diabetic neuropathy, unspecified; I48.91 Unspecified atrial fibrillation; J44.9 Chronic obstructive pulmonary disease, unspecified; F41.9 Anxiety disorder, unspecified; F32.A Depression, unspecified; K21.9 Gastro-esophageal reflux disease without esophagitis; E78.00 Pure hypercholesterolemia, unspecified; I25.10 Atherosclerotic heart disease of native coronary artery without angina pectoris; F03.90 Unspecified dementia, unspecified severity, without behavioral disturbance, psychotic disturbance, mood disturbance, and anxiety; G43.909 Migraine, unspecified, not intractable, without status migrainosus; G89.29 Other chronic pain; M25.569 Pain in unspecified knee; Z79.1 Long term (current) use of non-steroidal anti-inflammatories (NSAID); Z79.01 Long term (current) use of anticoagulants; Z79.52 Long term (current) use of systemic steroids; Z79.51 Long term (current) use of inhaled steroids; Z79.899 Other long term (current) drug therapy
CPT/HCPCS: 36415; 74022; 80053; 83690; 85025

== ENCOUNTER → 2021-06-06 | Outpatient (CLI) | payer MEDICARE, MEDICAID ==
[~2021-06-06] MED LIST changes: +FLUC100T10 PO; -FLUC100T6 PO; +ONDA8TAB13 PO
--- NOTE | 2021-06-06 18:03 | Diagnostic Imaging Report ---
INDICATION: Cough and shortness of breath and chest pain. EXAMINATION: PA and lateral views of the chest were obtained at 5:48 p.m. COMPARISON: 10/12/2020. Heart and mediastinal silhouette are normal in appearance. The lungs show no focal infiltrate. There is no pneumothorax or pleural fluid. IMPRESSION: Negative chest. Dictated by: Dictated on workstation # [id number]
== END ==
LOC: RAD 17:28
PROVIDERS: ATTEND Internal Medicine Critical Care Medicine
DX: J43.1 Panlobular emphysema (principal)
CPT/HCPCS: 71046

== ENCOUNTER → 2021-07-23 | Outpatient (CLI) | payer MEDICARE, MEDICAID | LOC: LAB 08:54 | PROVIDERS: ATTEND Internal Medicine Gastroenterology | DX: K58.0 Irritable bowel syndrome with diarrhea (principal) | CPT/HCPCS: 36415; 82705; 83993; 87324; 87449 ==

== ENCOUNTER 2021-08-28 00:45 | Emergency (ER) | payer MEDICARE, MEDICAID ==
[~2021-08-28] VITALS: Ht 160 cm; Wt 70.9 kg
[2021-08-28 01:00] VITALS: BP 138/95
--- NOTE | 2021-08-28 01:18 | ED Upper Extremity ---
General Stated Complaint: LEFT HAND BANDAGE CHANGE Source: patient Exam Limitations: no limitations History of Present Illness Date Seen by Provider: August 28, 2021 Time Seen by Provider: 01:05 Initial Comments Patient is a 66-year-old female who recently had left hand and wrist surgery at in the beginning of August. She had original surgery by Dr. EVANGELISTA at [facility] in [place], but surgery had complications and she was subsequently referred to . Patient has home health come and change her dressings every 3 days. She is complaining of increased pain this evening as well as increased drainage around the hand. She was concerned for infection. She states she has not really been doing much more activity than usual. She tells me she is keeping the hand elevated. No fevers or chills. No other complaints of illness or injury. All other review of systems reviewed and negative except as stated. Onset: this evening Severity: moderate Pain/Injury Location: left wrist, left hand Allergies and Home Medications Allergies Coded Allergies: bacitracin (Verified Allergy, Intermediate, "I BREAK OUT IN A RASH ALL OVER.", 04/20/19) neomycin (Verified Allergy, Intermediate, "I BREAK OUT IN A RASH ALL OVER.", 04/20/19) polymyxin B (Verified Allergy, Intermediate, "I BREAK OUT IN A RASH ALL OVER.", 04/20/19) ibuprofen (Verified Allergy, Mild, RASH, 04/20/19) naproxen (Verified Allergy, Mild, RASH, 04/20/19) tramadol (Verified Allergy, Unknown, 07/01/20) Patient Home Medication List Home Medication List Reviewed: Yes Albuterol Sulfate (Albuterol Sulfate) 2.5 Mg/3 Ml Vial.neb, 2.5 MG NEB Q6H PRN for SHORTNESS OF BREATH, (Reported) Entered as Reported by: GRETA MANCILLA on 11/26/16 1400 Albuterol Sulfate (Ventolin Hfa) 18 Gm Hfa.aer.ad, 2 PUFF INH QID PRN for SHORTNESS OF BREATH, (Reported) Entered as Reported by: GRETA MANCILLA on 05/21/18 1455 Alosetron HCl (Alosetron HCl) 0.5 Mg Tablet, 0.5 MG PO BID, (Reported) Entered as Reported by: JESSICA GILMORE on 02/28/21 1353 Apixaban (Eliquis) 5 Mg Tablet, 5 MG PO BID, (Reported) Entered as Reported by: GRETA MANCILLA on 07/11/17 1530 Benzonatate (Benzonatate) 100 Mg Capsule, 100 MG PO TID, (Reported) Entered as Reported by: JESSICA GILMORE on 02/28/21 1353 Bisacodyl (Bisacodyl) 5 Mg Tablet.dr, 5 MG PO DAILY PRN for CONSTIPATION-1ST LINE, (Reported) Entered as Reported by: JESSICA GILMORE on 02/28/21 1353 Buspirone HCl (Buspirone HCl) 5 Mg Tablet, 5 MG PO TID, (Reported) Entered as Reported by: JESSICA GILMORE on 02/28/21 135 Cholecalciferol (Vitamin D3) (Vitamin D3) 25 Mcg Capsule, 25 MCG PO DAILY, (Reported) Entered as Reported by: JESSICA GILMORE on 02/28/21 1353 Clonazepam (Clonazepam) 1 Mg Tablet, 1 MG PO BID, (Reported) Entered as Reported by: JAMIE GOVEA on 04/20/19 1024 Colestipol HCl (Colestid) 1 Gm Tab, 1 GM PO BID, (Reported) Entered as Reported by: JESSICA GILMORE on 02/28/21 135 Cyanocobalamin (Vitamin B-12) (Vitamin B-12) 1,000 Mcg Tablet, 1,000 MCG PO DAILY, (Reported) Entered as Reported by: SERENITY COPELAND on 12/30/19 1818 Dapagliflozin Propanediol (Farxiga) 5 Mg Tablet, 5 MG PO DAILY, (Reported) Entered as Reported by: GRETA MANCILLA on 05/21/18 1455 Denosumab (Prolia) 60 Mg/1 Ml Disp.syrin, 60 MG INJ EVERY 6 MONTHS, (Reported) Entered as Reported by: SERENITY COPELAND on 05/05/20 1153 Dicyclomine HCl (Dicyclomine HCl) 20 Mg Tablet, 20 MG PO QID, (Reported) Entered as Reported by: JESSICA GILMORE on 02/28/21 1353 Digoxin (Digoxin) 250 Mcg Tablet, 250 MCG PO DAILY, (Reported) Entered as Reported by: SERENITY COPELAND on 12/30/19 1728 Diltiazem HCl (Diltiazem 24Hr Cd) 240 Mg Cap.er.24h, 240 MG PO DAILY, (Reported) Entered as Reported by: JESSICA GILMORE on 02/28/21 1353 Donepezil HCl (Donepezil HCl) 10 Mg Tablet, 10 MG PO HS, (Reported) Entered as Reported by: GRETA MANCILLA on 11/26/16 1400 Erenumab-Aooe (Aimovig Autoinjector) 70 Mg/1 Ml Auto.injct, 70 MG MONTHLY, (Reported) Entered as Reported by: SERENITY COPELAND on 12/30/19 1728 Ergocalciferol (Vitamin D2) (Vitamin D2) 1,250 Mcg Capsule, 1,250 MCG PO TWICE WEEKLY, (Reported) Entered as Reported by: JESSICA GILMORE on 02/28/21 135 Famotidine (Pepcid) 40 Mg Tablet, 40 MG PO BID, (Reported) Entered as Reported by: JESSICA GILMORE on 02/28/21 135 Ferrous Sulfate (Ferrous Sulfate) 325 Mg Tablet, 325 MG PO DAILY, (Reported) Entered as Reported by: JESSICA GILMORE on 02/28/21 135 Fluticasone Propionate (Fluticasone Propionate) 16 Gm [place].susp, 2 SPRAYS NS BID PRN for ALLERGIES, (Reported) Entered as Reported by: GRETA MANCILLA on 07/11/17 1530 Hydralazine HCl (Hydralazine HCl) 25 Mg Tablet, 25 MG PO TID, (Reported) Entered as Reported by: JESSICA GILMORE on 02/28/21 1353 Hydroxyzine HCl (Hydroxyzine HCl) 25 Mg Tablet, 0.5 MG PO TID PRN for ITCHING Prescribed by: DAVIDSON RIVERS on 09/22/20 1541 L.acidoph & Paracasei,B.lactis (Probiotic) 1 Each Capsule, 1 EACH PO DAILY, (Reported) Entered as Reported by: SERENITY COPELAND on 12/30/19 1818 Lamotrigine (Lamictal) 25 Mg Tablet, 25 MG PO, (Reported) Entered as Reported by: JESSICA GILMORE on 02/28/21 1353 Latanoprost/Pf (Latanoprost 0.005% Eye Drop) 7.5 Ml Drops, 7.5 ML OP, (Reported) Entered as Reported by: JESSICA GILMORE on 02/28/21 135 Levocetirizine Dihydrochloride (Levocetirizine Dihydrochloride) 5 Mg Tablet, 5 MG PO DAILY, (Reported) Entered as Reported by: URSZULA BELL on 05/14/18 0828 Meclizine HCl (Meclizine HCl) 25 Mg Tablet, 25 MG PO Q8H PRN for DIZZINESS, (Reported) Entered as Reported by: JESSICA GILMORE on 02/28/21 135 Meloxicam (Meloxicam) 7.5 Mg Tablet, 7.5 MG PO DAILY, (Reported) Entered as Reported by: JESSICA GILMORE on 02/28/21 135 Memantine HCl (Memantine HCl) 10 Mg Tablet, 10 MG PO HS, (Reported) Entered as Reported by: BIENVENIDO FARRELL on 07/28/15 1444 Metoprolol Succinate (Metoprolol Succinate) 50 Mg Tab.er.24h, 50 MG PO DAILY, (Reported) Entered as Reported by: JESSICA GILMORE on 02/28/21 135 Mirtazapine (Mirtazapine) 45 Mg Tablet, 45 MG PO HS, (Reported) Entered as Reported by: SERENITY COPELAND on 12/30/19 1728 Multivitamin (Multivitamin) 1 Each Tablet, 1 EACH PO DAILY, (Reported) Entered as Reported by: JESSICA GILMORE on 02/28/21 135 Nitrofurantoin Monohyd/M-Cryst (Macrobid 100 mg Capsule) 100 Mg Capsule, 1 TAB PO BID Prescribed by: SHUBHAM CODY on 03/28/21 2319 Nitroglycerin (Nitroglycerin) 0.4 Mg Tab.subl, 0.4 MG SL UD PRN for CHEST PAIN (ANGINA), (Reported) Entered as Reported by: SERENITY COPELAND on 12/30/19 1728 Olanzapine (Olanzapine) 2.5 Mg Tablet, 2.5 MG PO HS, (Reported) Entered as Reported by: JESSICA GILMORE on 02/28/21 135 Ondansetron (Ondansetron Odt) 8 Mg Tab.rapdis, 8 MG PO Q6H PRN for NAUSEA/VOMITING Prescribed by: SRAVAN BRUCE on 05/26/21 1321 Ondansetron HCl (Zofran) 4 Mg Tab, 4 MG PO Q8H, (Reported) Entered as Reported by: JESSICA GILMORE on 02/28/21 1354 Pantoprazole Sodium (Pantoprazole Sodium) 40 Mg Tablet.dr, 40 MG PO BID, (Reported) Entered as Reported by: GRETA MANCILLA on 05/21/18 1455 Prednisone (Prednisone) 10 Mg Tab, 5 MG PO DAILY, (Reported) Entered as Reported by: SERENITY COPELAND on 05/05/20 1153 Primidone (Mysoline) 250 Mg Tablet, 250 MG PO BID, (Reported) Entered as Reported by: JAMIE GOVEA on 04/20/19 1024 Ropinirole HCl (Ropinirole HCl) 2 Mg Tablet, 2 MG PO HS, (Reported) Entered as Reported by: SERENITY COPELAND on 12/30/19 1728 Sertraline HCl (Sertraline HCl) 100 Mg Tablet, 100 MG PO DAILY, (Reported) Entered as Reported by: GRETA MANCILLA on 07/11/17 1530 Simvastatin (Simvastatin) 20 Mg Tablet, 20 MG PO HS, (Reported) Entered as Reported by: BIENVENIDO FARRELL on 07/28/15 1444 Sucralfate (Carafate) 1 Gm Tablet, 1 GM PO QID, (Reported) Entered as Reported by: JESSICA GILMORE on 02/28/21 1354 Sumatriptan Succinate (Imitrex) 100 Mg Tablet, 100 MG PO DAILY PRN, (Reported) Entered as Reported by: JESSICA GILMORE on 02/28/21 1353 Venlafaxine HCl (Venlafaxine HCl) 75 Mg Tab, 75 MG PO DAILY, (Reported) Entered as Reported by: JESSICA GILMORE on 02/28/21 1354 Review of Systems Constitutional: see HPI Respiratory: no symptoms reported Cardiovascular: no symptoms reported Gastrointestinal: no symptoms reported Musculoskeletal: joint pain (left wrist pain, drainage from surgical wound) Psychiatric/Neurological: Anxiety All Other Systems Reviewed Negative Unless Noted: Yes Past Dznkczp-Gukmfu-Npbtwo Hx Immunizations Up To Date Tetanus Booster (TDap): Unknown PED Vaccines UTD: No First/Initial COVID19 Vaccinat: 2020 Second COVID19 Vaccination Hugo: 2020 Third COVID19 Vaccination Date: MAR 2021 Seasonal Allergies Seasonal Allergies: No Past Medical History Surgeries: Yes (4 neck surgeries, thumb surgery both hands, bilat carple tunnel, bilat hip) Abdominal, Appendectomy, Bladder Surgery, Cardiac, Gallbladder, Joint Replacement, Orthopedic, Pancreatic, Tubal Ligation Respiratory: Yes (O2 AT HS & DURING DAY PRN) Asthma, COPD Currently Using CPAP: No Currently Using BIPAP: No Cardiac: Yes Atrial Fibrillation, Coronary Artery Disease, High Cholesterol, Hypertension, Irregular Heartbeat, Palpitations, Peripheral Vascular Neurological: Yes Dementia, Headaches /Migraines, Neuropathy 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 Disorders: No 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 Disorders: Denies 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 Sexually Transmitted Disease: No HIV/AIDS: No Genitourinary: Yes (SUPRAPUBIC CATH ) UTI-Chronic Gastrointestinal: Yes Gastroesophageal Reflux, Polyps, Hiatal Hernia, Gall Bladder Disease Musculoskeletal: Yes (CBP chronic knee pain, HIP REPLACEMENT 02/08/19) Arthritis Endocrine: Yes Hypothyroidsim, Diabetes, Non-Insulin dep HEENT: Yes (cataracts removed) Cataract Loss of Vision: Denies Hearing Impairment: Denies Cancer: Yes Bladder Did You Recieve Any Treatments: Yes What Type of Treatment Did You: Surgical Intervention Psychosocial: Yes Anxiety, Depression Integumentary: No Psoriasis Blood Disorders: No Adverse Reaction/Blood Tranf: No Family Medical History Cardiovascular disease G8 BROTHER (TRIPLE BYPASS) Diabetes mellitus 19 MOTHER FH: COPD (chronic obstructive pulmonary disease) 19 MOTHER FH: breast cancer 19 MOTHER FHx: brain cancer 19 FATHER No Pertinent Family Hx Physical Exam Vital Signs Capillary Refill : Height, Weight, BMI Height: 5'4.00" Weight: 165lbs. 0.0oz. [id number]; 26.00 BMI Method:Stated General Appearance: WD/WN, no apparent distress Respiratory: no respiratory distress, no accessory muscle use Shoulder: normal ROM Elbow/Forearm: normal ROM Wrist: Yes pain (Dressings taken down over the left wrist. She has extensive sutures over the dorsum of the left hand, wrist and distal forearm. The more proximal sutures appear to be healing very well. She has quite a bit of swelling over the dorsum of the left hand. In the area of the sutures over the dorsum of the left hand the skin appears much more friable, moist and edematous. The sutures have obvious serous drainage in between them. No purulence is expressed. The wound margins are not erythematous, there is no increased warmth or other signs consistent with cellulitis.) Neurologic/Psychiatric: alert, normal mood/affect, oriented x 3 Progress/Results/Core Measures Results/Orders My Orders Orders - GINA GUTIERREZ MD Oxycodone Immediate Rel Tablet (Oxyir Ta (08/28/21 01:15) Progress Progress Note : Time: 01:15 Progress Note Reassurance given to the patient regarding the drainage from the wound in her hand. My suspicion is that she has increased swelling from dangling her hand and arm at her side and this has caused increased tissue fluids to collect and exude through the suture line. There is no sign of cellulitis currently. She is afebrile. The wound actually looks very good. We are going to only place Xeroform gauze on the more proximal sutures and then dry dressings over the rest. We will rewrap it as we found it. She states its been about 4 hours since she had an oxycodone so I will give her 1 of those. She has further pain medications at home. I recommended close follow-up with her surgeons at . She verbalized understanding. All questions are sought and answered. Departure Impression Primary Impression: Encounter for post surgical wound check Disposition: 01 HOME, SELF-CARE Condition: Stable Departure-Patient Inst. Decision time for Depature: 01:16 Referrals: VIPIN GOODMAN DO (PCP/Family) Primary Care Physician Patient Instructions: Wound Care ED Add. Discharge Instructions: Continue your dressing changes as instructed by your surgeon. Keep your hand elevated up above the level of your heart to reduce the swelling, this will also decrease the amount of drainage from the surgical wound. If you develop a fever or worsening pain with puslike discharge or any other concerning symptoms please come back to the emergency room for reevaluation. GINA GUTIERREZ MD August 28, 2021 01:17
[2021-08-29] MEDS ORDERED: CEFD300C3 PO (21:21)
== END 2021-08-28 02:00 ==
LOC: EDUNIT# 00:45 → ER 00:49
DX: Z48.01 Encounter for change or removal of surgical wound dressing (principal)
CPT/HCPCS: 99283; A6223

== ENCOUNTER 2021-08-29 15:33 | Emergency (ER) | payer MEDICARE, MEDICAID ==
[~2021-08-29] VITALS: Ht 160 cm; Wt 70.0 kg
[2021-08-29 15:46] VITALS: BP 137/80
[2021-08-29 15:59] LABS: BASOPHILS % (AUTO) 1 % (0-10); EOSINOPHILS # (AUTO) 0.3 10^3/uL (0.0-0.3); EOSINOPHILS % (AUTO) 4 % (0-10); HEMATOCRIT 46 % (35-52); HEMOGLOBIN 14.8 g/dL (11.5-16.0); LYMPHOCYTES # (AUTO) 2.2 10^3/uL (1.0-4.0); LYMPHOCYTES % (AUTO) 27 % (12-44); MEAN CORPUSCULAR HEMOGLOBIN 31 pg (25-34); MEAN CORPUSCULAR HGB CONC 32 g/dL (32-36); MEAN CORPUSCULAR VOLUME 96 fL (80-99); MEAN PLATELET VOLUME 9.7 fL (9.0-12.2); MONOCYTES # (AUTO) 0.8 10^3/uL (0.0-1.0); MONOCYTES % (AUTO) 10 % (0-12); NEUTROPHILS # (AUTO) 4.6 10^3/uL (1.8-7.8); NEUTROPHILS % (AUTO) 58 % (42-75); PLATELET COUNT 243 10^3/uL (130-400); WHITE BLOOD COUNT 7.9 10^3/uL (4.3-11.0)
[2021-08-29] MEDS ORDERED: morphine INJ 10 MG/ML 1ML (SYR OR VIAL) IVP STA ×2 (16:01→20:17)
[2021-08-29 16:13] LABS: ALBUMIN 4.1 GM/DL (3.2-4.5)
[2021-08-29 16:14] LABS: POTASSIUM 3.6 MMOL/L (3.6-5.0)
--- NOTE | 2021-08-29 16:14 | Diagnostic Imaging Report ---
INDICATION: Chest pain. EXAMINATION: Frontal chest was obtained at 4:14 p.m. COMPARISON: 06/06/2021. Heart is mildly enlarged. There is mild central vascular prominence. There is minimal infiltrate versus atelectasis in the right base. There is no pneumothorax or pleural fluid. IMPRESSION: Cardiomegaly with mild central vascular prominence. Minimal infiltrate versus atelectasis in right base. No pneumothorax or pleural fluid. Dictated by: Dictated on workstation # [id number]
[2021-08-29 16:15] LABS: CALCIUM 9.7 MG/DL (8.5-10.1)
[2021-08-29 16:16] LABS: TOTAL PROTEIN 7.4 GM/DL (6.4-8.2)
[2021-08-29 16:18] LABS: BILIRUBIN,TOTAL 0.3 MG/DL (0.1-1.0)
[2021-08-29 16:20] LABS: CREATININE SERUM 0.67 MG/DL (0.60-1.30)
[2021-08-29 16:23] LABS: MAGNESIUM 1.8 MG/DL (1.6-2.4)
[2021-08-29] MEDS: NITROGLYCERIN 0.4 MG SL TABS BTL 25'S SL PRN ×2 (16:52→17:03)
--- NOTE | 2021-08-29 17:07 | ED Cardiac General ---
History of Present Illness General Chief Complaint: Chest Pain Stated Complaint: CHEST PAIN Nursing Triage Note: PT ARRIVAL TO ER VIA PRIVATE VEHICLE WITH COMPLAINT OF INTERMITTENT CHEST PAIN X30-45 MINUTES. PT STATES THAT IT GOES THROUGH TO HER BACK. PT DENIES OTHER COMPLAINTS. Source: family Exam Limitations: no limitations History of Present Illness Date Seen by Provider: August 29, 2021 Time Seen by Provider: 16:44 ASA po TELEVISION AGENT: No Allergies and Home Medications Allergies Coded Allergies: bacitracin (Verified Allergy, Intermediate, "I BREAK OUT IN A RASH ALL OVER.", 04/20/19) neomycin (Verified Allergy, Intermediate, "I BREAK OUT IN A RASH ALL OVER.", 04/20/19) polymyxin B (Verified Allergy, Intermediate, "I BREAK OUT IN A RASH ALL OVER.", 04/20/19) ibuprofen (Verified Allergy, Mild, RASH, 04/20/19) naproxen (Verified Allergy, Mild, RASH, 04/20/19) tramadol (Verified Allergy, Unknown, 07/01/20) Patient Home Medication List Albuterol Sulfate (Albuterol Sulfate) 2.5 Mg/3 Ml Vial.neb, 2.5 MG NEB Q6H PRN for SHORTNESS OF BREATH, (Reported) Entered as Reported by: GRETA MANCILLA on 11/26/16 1400 Albuterol Sulfate (Ventolin Hfa) 18 Gm Hfa.aer.ad, 2 PUFF INH QID PRN for SHORTNESS OF BREATH, (Reported) Entered as Reported by: GRETA MANCILLA on 05/21/18 1455 Alosetron HCl (Alosetron HCl) 0.5 Mg Tablet, 0.5 MG PO BID, (Reported) Entered as Reported by: JESSICA GILMORE on 02/28/21 1353 Apixaban (Eliquis) 5 Mg Tablet, 5 MG PO BID, (Reported) Entered as Reported by: GRETA MANCILLA on 07/11/17 1530 Benzonatate (Benzonatate) 100 Mg Capsule, 100 MG PO TID, (Reported) Entered as Reported by: JESSICA GILMORE on 02/28/21 1353 Bisacodyl (Bisacodyl) 5 Mg Tablet.dr, 5 MG PO DAILY PRN for CONSTIPATION-1ST LINE, (Reported) Entered as Reported by: JESSICA GILMORE on 02/28/21 1353 Buspirone HCl (Buspirone HCl) 5 Mg Tablet, 5 MG PO TID, (Reported) Entered as Reported by: JESSICA GILMORE on 02/28/21 1353 Cholecalciferol (Vitamin D3) (Vitamin D3) 25 Mcg Capsule, 25 MCG PO DAILY, (Reported) Entered as Reported by: JESSICA GILMORE on 02/28/21 1353 Clonazepam (Clonazepam) 1 Mg Tablet, 1 MG PO BID, (Reported) Entered as Reported by: JAMIE GOVEA on 04/20/19 1024 Colestipol HCl (Colestid) 1 Gm Tab, 1 GM PO BID, (Reported) Entered as Reported by: JESSICA GILMORE on 02/28/21 1353 Cyanocobalamin (Vitamin B-12) (Vitamin B-12) 1,000 Mcg Tablet, 1,000 MCG PO DAILY, (Reported) Entered as Reported by: SERENITY COPELAND on 12/30/19 1818 Dapagliflozin Propanediol (Farxiga) 5 Mg Tablet, 5 MG PO DAILY, (Reported) Entered as Reported by: GRETA MANCILLA on 05/21/18 1455 Denosumab (Prolia) 60 Mg/1 Ml Disp.syrin, 60 MG INJ EVERY 6 MONTHS, (Reported) Entered as Reported by: SERENITY COPELAND on 05/05/20 1153 Dicyclomine HCl (Dicyclomine HCl) 20 Mg Tablet, 20 MG PO QID, (Reported) Entered as Reported by: JESSICA GILMORE on 02/28/21 135 Digoxin (Digoxin) 250 Mcg Tablet, 250 MCG PO DAILY, (Reported) Entered as Reported by: SERENITY COPELAND on 12/30/19 1728 Diltiazem HCl (Diltiazem 24Hr Cd) 240 Mg Cap.er.24h, 240 MG PO DAILY, (Reported) Entered as Reported by: JESSICA GILMORE on 02/28/21 1353 Donepezil HCl (Donepezil HCl) 10 Mg Tablet, 10 MG PO HS, (Reported) Entered as Reported by: GRETA MANCILLA on 11/26/16 1400 Erenumab-Aooe (Aimovig Autoinjector) 70 Mg/1 Ml Auto.injct, 70 MG MONTHLY, (Reported) Entered as Reported by: SERENITY COPELAND on 12/30/19 1728 Ergocalciferol (Vitamin D2) (Vitamin D2) 1,250 Mcg Capsule, 1,250 MCG PO TWICE WEEKLY, (Reported) Entered as Reported by: JESSICA GILMORE on 02/28/21 135 Famotidine (Pepcid) 40 Mg Tablet, 40 MG PO BID, (Reported) Entered as Reported by: JESSICA GILMORE on 02/28/21 135 Ferrous Sulfate (Ferrous Sulfate) 325 Mg Tablet, 325 MG PO DAILY, (Reported) Entered as Reported by: JESSICA GILMORE on 02/28/21 135 Fluticasone Propionate (Fluticasone Propionate) 16 Gm [place].susp, 2 SPRAYS NS BID PRN for ALLERGIES, (Reported) Entered as Reported by: GRETA MANCILLA on 07/11/17 1530 Hydralazine HCl (Hydralazine HCl) 25 Mg Tablet, 25 MG PO TID, (Reported) Entered as Reported by: JESSICA GILMORE on 02/28/21 135 Hydroxyzine HCl (Hydroxyzine HCl) 25 Mg Tablet, 0.5 MG PO TID PRN for ITCHING Prescribed by: DAVIDSON RIVERS on 09/22/20 1541 L.acidoph & Paracasei,B.lactis (Probiotic) 1 Each Capsule, 1 EACH PO DAILY, (Reported) Entered as Reported by: SERENITY COPELAND on 12/30/19 1818 Lamotrigine (Lamictal) 25 Mg Tablet, 25 MG PO, (Reported) Entered as Reported by: JESSICA GILMORE on 02/28/21 135 Latanoprost/Pf (Latanoprost 0.005% Eye Drop) 7.5 Ml Drops, 7.5 ML OP, (Reported) Entered as Reported by: JESSICA GILMORE on 02/28/21 135 Levocetirizine Dihydrochloride (Levocetirizine Dihydrochloride) 5 Mg Tablet, 5 MG PO DAILY, (Reported) Entered as Reported by: URSZULA BELL on 05/14/18 0828 Meclizine HCl (Meclizine HCl) 25 Mg Tablet, 25 MG PO Q8H PRN for DIZZINESS, (Reported) Entered as Reported by: JESSICA GILMORE on 02/28/21 1353 Meloxicam (Meloxicam) 7.5 Mg Tablet, 7.5 MG PO DAILY, (Reported) Entered as Reported by: JESSICA GILMORE on 02/28/21 1353 Memantine HCl (Memantine HCl) 10 Mg Tablet, 10 MG PO HS, (Reported) Entered as Reported by: BIENVENIDO FARRELL on 07/28/15 1444 Metoprolol Succinate (Metoprolol Succinate) 50 Mg Tab.er.24h, 50 MG PO DAILY, (Reported) Entered as Reported by: JESSICA GILMORE on 02/28/21 135 Mirtazapine (Mirtazapine) 45 Mg Tablet, 45 MG PO HS, (Reported) Entered as Reported by: SERENITY COPELAND on 12/30/19 1728 Multivitamin (Multivitamin) 1 Each Tablet, 1 EACH PO DAILY, (Reported) Entered as Reported by: JESSICA GILMORE on 02/28/21 1353 Nitrofurantoin Monohyd/M-Cryst (Macrobid 100 mg Capsule) 100 Mg Capsule, 1 TAB PO BID Prescribed by: SHUBHAM CODY on 03/28/21 2319 Nitroglycerin (Nitroglycerin) 0.4 Mg Tab.subl, 0.4 MG SL UD PRN for CHEST PAIN (ANGINA), (Reported) Entered as Reported by: SERENITY COPELAND on 12/30/19 1728 Olanzapine (Olanzapine) 2.5 Mg Tablet, 2.5 MG PO HS, (Reported) Entered as Reported by: JESSICA GILMORE on 02/28/21 1353 Ondansetron (Ondansetron Odt) 8 Mg Tab.rapdis, 8 MG PO Q6H PRN for NAUSEA/VOMITING Prescribed by: SRAVAN BRUCE on 05/26/21 1321 Ondansetron HCl (Zofran) 4 Mg Tab, 4 MG PO Q8H, (Reported) Entered as Reported by: JESSICA GILMORE on 02/28/21 135 Pantoprazole Sodium (Pantoprazole Sodium) 40 Mg Tablet.dr, 40 MG PO BID, (Reported) Entered as Reported by: GRETA MANCILLA on 05/21/18 1455 Prednisone (Prednisone) 10 Mg Tab, 5 MG PO DAILY, (Reported) Entered as Reported by: SERENITY COPELAND on 05/05/20 1153 Primidone (Mysoline) 250 Mg Tablet, 250 MG PO BID, (Reported) Entered as Reported by: JAMIE GOVEA on 04/20/19 1024 Ropinirole HCl (Ropinirole HCl) 2 Mg Tablet, 2 MG PO HS, (Reported) Entered as Reported by: SERENITY COPELAND on 12/30/19 1728 Sertraline HCl (Sertraline HCl) 100 Mg Tablet, 100 MG PO DAILY, (Reported) Entered as Reported by: GRETA MANCILLA on 07/11/17 1530 Simvastatin (Simvastatin) 20 Mg Tablet, 20 MG PO HS, (Reported) Entered as Reported by: BIENVENIDO FARRELL on 07/28/15 1444 Sucralfate (Carafate) 1 Gm Tablet, 1 GM PO QID, (Reported) Entered as Reported by: JESSICA GILMORE on 02/28/21 1354 Sumatriptan Succinate (Imitrex) 100 Mg Tablet, 100 MG PO DAILY PRN, (Reported) Entered as Reported by: JESSICA GILMORE on 02/28/21 1353 Venlafaxine HCl (Venlafaxine HCl) 75 Mg Tab, 75 MG PO DAILY, (Reported) Entered as Reported by: JESSICA GILMORE on 02/28/21 1354 Past Hvswqku-Bqvlea-Oxhvgb Hx Patient Social History Tobacco Use?: Yes Tobacco type used: Cigarettes Smoking Status: Current Everyday Smoker Use of E-Cig and/or Vaping dev: No Substance use?: No Alcohol Use?: No Pt feels they are or have been: No Immunizations Up To Date Tetanus Booster (TDap): Unknown PED Vaccines UTD: No Influenza Vaccine Up-to-Date: No; Not Current First/Initial COVID19 Vaccinat: 2020 Second COVID19 Vaccination Hugo: 2020 Third COVID19 Vaccination Date: 2021 Seasonal Allergies Seasonal Allergies: No Past Medical History Surgeries: Yes (4 neck surgeries, thumb surgery both hands, bilat carple tunnel, bilat hip) Abdominal, Appendectomy, Bladder Surgery, Cardiac, Gallbladder, Joint Replacement, Orthopedic, Pancreatic, Tubal Ligation Respiratory: Yes (O2 AT HS & DURING DAY PRN) Asthma, COPD Currently Using CPAP: No Currently Using BIPAP: No Cardiac: Yes Atrial Fibrillation, Coronary Artery Disease, High Cholesterol, Hypertension, Irregular Heartbeat, Palpitations, Peripheral Vascular Neurological: Yes Dementia, Headaches /Migraines, Neuropathy 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 Disorders: No 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 Disorders: Denies 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 Sexually Transmitted Disease: No HIV/AIDS: No Genitourinary: Yes (SUPRAPUBIC CATH ) UTI-Chronic Gastrointestinal: Yes Gastroesophageal Reflux, Polyps, Hiatal Hernia, Gall Bladder Disease Musculoskeletal: Yes (CBP chronic knee pain, HIP REPLACEMENT 02/08/19) Arthritis Endocrine: Yes Hypothyroidsim, Diabetes, Non-Insulin dep HEENT: Yes (cataracts removed) Cataract Loss of Vision: Denies Hearing Impairment: Denies Cancer: Yes Bladder Did You Recieve Any Treatments: Yes What Type of Treatment Did You: Surgical Intervention Psychosocial: Yes Anxiety, Depression Integumentary: No Psoriasis Blood Disorders: No Adverse Reaction/Blood Tranf: No Family Medical History Cardiovascular disease G8 BROTHER (TRIPLE BYPASS) Diabetes mellitus 19 MOTHER FH: COPD (chronic obstructive pulmonary disease) 19 MOTHER FH: breast cancer 19 MOTHER FHx: brain cancer 19 FATHER No Pertinent Family Hx Physical Exam Vital Signs Vital Signs - First Documented 08/29/21 15:46 Temp 36.8 Pulse 62 Resp 20 B/P (MAP) 137/80 (99) Pulse Ox 96 O2 Delivery Room Air Capillary Refill : Less Than 3 Seconds Height, Weight, BMI Height: 5'4.00" Weight: 165lbs. 0.0oz. [id number]; 27.00 BMI Method:Stated Progress/Results/Core Measures Results/Orders Lab Results Laboratory Tests Test 08/29/21 15:48 08/29/21 20:46 Range/Units White Blood Count 7.9 4.3-11.0 10^3/uL Red Blood Count 4.83 3.80-5.11 10^6/uL Hemoglobin 14.8 11.5-16.0 g/dL Hematocrit 46 35-52 % Mean Corpuscular Volume 96 80-99 fL Mean Corpuscular Hemoglobin 31 25-34 pg Mean Corpuscular Hemoglobin Concent 32 32-36 g/dL Red Cell Distribution Width 13.5 10.0-14.5 % Platelet Count 243 130-400 10^3/uL Mean Platelet Volume 9.7 9.0-12.2 fL Immature Granulocyte % (Auto) 0 % Neutrophils (%) (Auto) 58 42-75 % Lymphocytes (%) (Auto) 27 12-44 % Monocytes (%) (Auto) 10 0-12 % Eosinophils (%) (Auto) 4 0-10 % Basophils (%) (Auto) 1 0-10 % Neutrophils # (Auto) 4.6 1.8-7.8 10^3/uL Lymphocytes # (Auto) 2.2 1.0-4.0 10^3/uL Monocytes # (Auto) 0.8 0.0-1.0 10^3/uL Eosinophils # (Auto) 0.3 0.0-0.3 10^3/uL Basophils # (Auto) 0.0 0.0-0.1 10^3/uL Immature Granulocyte # (Auto) 0.0 0.0-0.1 10^3/uL Prothrombin Time 13.0 12.2-14.7 SEC INR Comment 1.0 0.8-1.4 Activated Partial Thromboplast Time 33 24-35 SEC Sodium Level 140 135-145 MMOL/L Potassium Level 3.6 3.6-5.0 MMOL/L Chloride Level 103 98-107 MMOL/L Carbon Dioxide Level 25 21-32 MMOL/L Anion Gap 12 5-14 MMOL/L Blood Urea Nitrogen 8 7-18 MG/DL Creatinine 0.67 0.60-1.30 MG/DL Estimat Glomerular Filtration Rate 95 BUN/Creatinine Ratio 12 Glucose Level 118 H 70-105 MG/DL Calcium Level 9.7 8.5-10.1 MG/DL Corrected Calcium 9.6 8.5-10.1 MG/DL Magnesium Level 1.8 1.6-2.4 MG/DL Total Bilirubin 0.3 0.1-1.0 MG/DL Aspartate Amino Transf (AST/SGOT) 28 5-34 U/L Alanine Aminotransferase (ALT/SGPT) 42 0-55 U/L Alkaline Phosphatase 110 40-136 U/L Myoglobin 31.2 10.0-92.0 NG/ML Troponin I < 0.028 < 0.028 <0.028 NG/ML Total Protein 7.4 6.4-8.2 GM/DL Albumin 4.1 3.2-4.5 GM/DL My Orders Orders - STEFAN GROVES APRN Morphine Injection (Morphine Injection (08/29/21 16:01) Nitroglycerin 0.4 Mg Btl 25's (Nitrostat (08/29/21 16:45) Troponin I [place] (08/29/21 18:48) Ceftriaxone 1 Gm Pre-Mix (Rocephin 1 Gm (08/29/21 18:15) Morphine Injection (Morphine Injection (08/29/21 20:17) Medications Given in ED Current Medications Medications Dose Ordered Sig/[place] Route Start Time Stop Time Status Last Admin Dose Admin Ceftriaxone Sodium/Dextrose 50 ml @ 100 mls/hr ONCE ONCE IV 08/29/21 18:15 08/29/21 18:44 DC 08/29/21 18:15 100 MLS/HR Nitroglycerin 1 TAB Q 5 MIN X 3 NEEDED PRN SL 08/29/21 16:45 08/29/21 17:03 0.4 MG Vital Signs/I&O 08/29/21 15:46 Temp 36.8 Pulse 62 Resp 20 B/P (MAP) 137/80 (99) Pulse Ox 96 O2 Delivery Room Air Blood Pressure Mean: 99 Departure Impression Primary Impression: CAP (community acquired pneumonia) Disposition: 01 HOME, SELF-CARE Condition: Improved Departure-Patient Inst. Decision time for Depature: 21:20 Referrals: VIPIN GOODMAN DO (PCP/Family) Primary Care Physician Patient Instructions: Pneumonia, Adult ED Add. Discharge Instructions: Plan: 1. Follow up with your primary care provider in 3-5 days. 2. Take antibiotics as directed and complete full course. 3. Return for any new, concerning, or worsening symptoms. All discharge instructions reviewed with patient and/or family. Voiced understanding. Scripts Cefdinir (Cefdinir) 300 Mg Capsule 300 MG PO BID for 10 Days, #20 CAP 0 Refills Prov: STEFAN GROVES CHEMICAL PROJECT ENGINEER 08/29/21 STEFAN GROVES CHEMICAL PROJECT ENGINEER August 29, 2021 17:07
[2021-08-29] MEDS ORDERED: cefTRIAXone 1 GM PRE-MIX 50 ML IV ONE (18:15)
[2021-08-29] MEDS ORDERED: CEFD300C3 PO (21:21)
== END 2021-08-29 21:36 | disposition home or self-care (01) ==
LOC: EDUNIT# 15:33 → ER 15:35
DX: J18.9 Pneumonia, unspecified organism (principal); F17.210 Nicotine dependence, cigarettes, uncomplicated
CPT/HCPCS: 36415; 71045; 80053; 83735; 83874; 84484; 85025; 85610; 85730; 93005; 93041

== ENCOUNTER 2021-09-08 14:39 | Emergency (ER) | payer MEDICARE, MEDICAID ==
[~2021-09-08] VITALS: Ht 160 cm; Wt 70.7 kg
[2021-09-08 14:45] VITALS: BP 113/61
[2021-09-08] MEDS ORDERED: NS IV 1000 ML 1,000 ML IV SCH (15:15)
[2021-09-08 15:27] LABS: ALBUMIN 3.8 GM/DL (3.2-4.5); BASOPHILS % (AUTO) 0 % (0-10); EOSINOPHILS # (AUTO) 0.4 10^3/uL (0.0-0.3); EOSINOPHILS % (AUTO) 5 % (0-10); HEMATOCRIT 40 % (35-52); HEMOGLOBIN 12.8 g/dL (11.5-16.0); LYMPHOCYTES # (AUTO) 1.8 X 10^3 (1.0-4.0); LYMPHOCYTES % (AUTO) 27 % (12-44); MEAN CORPUSCULAR HEMOGLOBIN 31 pg (25-34); MEAN CORPUSCULAR HGB CONC 32 g/dL (32-36); MEAN CORPUSCULAR VOLUME 95 fL (80-99); MEAN PLATELET VOLUME 10.1 fL (9.0-12.2); MONOCYTES # (AUTO) 0.6 X 10^3 (0.0-1.0); MONOCYTES % (AUTO) 9 % (0-12); NEUTROPHILS # (AUTO) 3.9 X 10^3 (1.8-7.8); NEUTROPHILS % (AUTO) 58 % (42-75); PLATELET COUNT 247 10^3/uL (130-400); POTASSIUM 3.8 MMOL/L (3.6-5.0); WHITE BLOOD COUNT 6.7 10^3/uL (4.3-11.0)
[2021-09-08 15:28] LABS: CALCIUM 8.8 MG/DL (8.5-10.1)
[2021-09-08 15:30] LABS: TOTAL PROTEIN 6.6 GM/DL (6.4-8.2)
[2021-09-08 15:31] LABS: BILIRUBIN,TOTAL 0.3 MG/DL (0.1-1.0)
[2021-09-08 15:33] LABS: CREATININE SERUM 0.67 MG/DL (0.60-1.30)
[2021-09-08 15:38] LABS: INR 1.2 (0.8-1.4); PROTHROMBIN TIME PATIENT 15.4 SEC (12.2-14.7)
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
--- NOTE | 2021-09-08 15:56 | Diagnostic Imaging Report ---
EXAMINATION: Chest 1 view. HISTORY: AMS. COMPARISON: 08/29/2021. FINDINGS: Small bibasilar atelectasis. No pleural effusion or pneumothorax. Heart size is normal. Electronic device projects over the mid chest. IMPRESSION: Mild bibasilar atelectasis. Dictated by: Dictated on workstation # [id number]
[2021-09-08 16:13] LABS: ABG BASE EXCESS -4.7 MMOL/L (-2.5-2.5); ABG OXYGEN SATURATION 94 % (94-100); ABG PCO2 43 MMHG (35-45); ABG PO2 71 MMHG (79-93)
[2021-09-08 16:15] LABS: PATIENT TEMP 36.8; VENTILATOR NO
[2021-09-08 16:31] LABS: BILIRUBIN,URINE NEGATIVE (NEGATIVE); CLARITY,URINE SL CLOUDY; COLOR,URINE YELLOW; GLUCOSE, URINE (UA) NEGATIVE (NEGATIVE); KETONES,URINE NEGATIVE (NEGATIVE); LEUKOCYTE ESTERASE ,URINE 2+ (NEGATIVE); NITRITE,URINE POSITIVE (NEGATIVE); PROTEIN,URINE NEGATIVE (NEGATIVE)
[2021-09-08 16:43] LABS: BACTERIA,URINE NEGATIVE /HPF; YEAST,URINE LARGE /HPF
[2021-09-08] MEDS ORDERED: ACETAMINOPHEN 500 MG TAB (TYLENOL) PO ONE (17:30)
== END 2021-09-08 17:42 | disposition home or self-care (01) ==
LOC: EDUNIT# 14:39 → ER 14:43
DX: R40.0 Somnolence (principal); T40.605A Adverse effect of unspecified narcotics, initial encounter; N30.00 Acute cystitis without hematuria; G89.29 Other chronic pain; M25.532 Pain in left wrist; J44.9 Chronic obstructive pulmonary disease, unspecified; Z85.51 Personal history of malignant neoplasm of bladder; Z99.81 Dependence on supplemental oxygen; Z79.891 Long term (current) use of opiate analgesic; Z96.0 Presence of urogenital implants; Z88.5 Allergy status to narcotic agent; Z88.6 Allergy status to analgesic agent; Z88.1 Allergy status to other antibiotic agents
CPT/HCPCS: 36415; 71045; 80053; 81000; 82805; 82947; 83605; 85025; 85610; 85730; 87040; 87088

== ENCOUNTER 2021-09-15 17:04 | Emergency (ER) | payer MEDICARE, MEDICAID ==
[~2021-09-15] VITALS: Ht 160 cm; Wt 67.6 kg
[2021-09-15] MEDS ORDERED: NS IV 1000 ML 1,000 ML IV STA (17:13)
--- NOTE | 2021-09-15 17:21 | ED GI ---
General Chief Complaint: Abdominal/GI Problems Stated Complaint: VOMITING Source of Information: Patient Exam Limitations: No Limitations History of Present Illness Date Seen by Provider: Sep 15, 2021 Time Seen by Provider: 17:17 Initial Comments Patient is a 66-year-old female with a history of CVA, TIA, hypertension, GERD surgeries who presents ED by EMS for vomiting. Vomiting over the past week. She reports nonbilious vomiting without hematemesis 4-5 episodes daily. She states she was started on Keflex and clindamycin secondary to infection in her wrist. She has had multiple surgeries at [facility] over the past 3 weeks for her left wrist. Since she has been taking the clindamycin and Keflex she has been having some generalized abdominal discomfort described as dull and achy with vomiting as well as diarrhea. Denies any blood or mucus in her stool. Denies any odor in her stool. History of appendectomy and cholecystectomy. She states she feels weak. Has not been able to take her pain medication secondary to vomiting every time she eats. Denies fever, chest pain, shortness of breath, headache, dizziness, visual changes. Allergies and Home Medications Allergies Coded Allergies: bacitracin (Verified Allergy, Intermediate, "I BREAK OUT IN A RASH ALL OVER.", 04/20/19) neomycin (Verified Allergy, Intermediate, "I BREAK OUT IN A RASH ALL OVER.", 04/20/19) polymyxin B (Verified Allergy, Intermediate, "I BREAK OUT IN A RASH ALL OVER.", 04/20/19) ibuprofen (Verified Allergy, Mild, RASH, 04/20/19) naproxen (Verified Allergy, Mild, RASH, 04/20/19) tramadol (Verified Allergy, Unknown, 07/01/20) Patient Home Medication List Home Medication List Reviewed: Yes Albuterol Sulfate (Albuterol Sulfate) 2.5 Mg/3 Ml Vial.neb, 2.5 MG NEB Q6H PRN for SHORTNESS OF BREATH, (Reported) Entered as Reported by: GRETA MANCILLA on 11/26/16 1400 Albuterol Sulfate (Ventolin Hfa) 18 Gm Hfa.aer.ad, 2 PUFF INH QID PRN for SHORTNESS OF BREATH, (Reported) Entered as Reported by: GRTEA MANCILLA on 05/21/18 1455 Alosetron HCl (Alosetron HCl) 0.5 Mg Tablet, 0.5 MG PO BID, (Reported) Entered as Reported by: JESSICA GILMORE on 02/28/21 1353 Apixaban (Eliquis) 5 Mg Tablet, 5 MG PO BID, (Reported) Entered as Reported by: GRETA MANCILLA on 07/11/17 1530 Benzonatate (Benzonatate) 100 Mg Capsule, 100 MG PO TID, (Reported) Entered as Reported by: JESSICA GILMORE on 02/28/21 135 Bisacodyl (Bisacodyl) 5 Mg Tablet.dr, 5 MG PO DAILY PRN for CONSTIPATION-1ST LINE, (Reported) Entered as Reported by: JESSICA GILMORE on 02/28/21 135 Buspirone HCl (Buspirone HCl) 5 Mg Tablet, 5 MG PO TID, (Reported) Entered as Reported by: JESSICA GILMORE on 02/28/21 1353 Cefdinir (Cefdinir) 300 Mg Capsule, 300 MG PO BID Prescribed by: STEFAN GROVES on 08/29/212120 Cholecalciferol (Vitamin D3) (Vitamin D3) 25 Mcg Capsule, 25 MCG PO DAILY, (Reported) Entered as Reported by: JESSICA GILMORE on 02/28/21 135 Clonazepam (Clonazepam) 1 Mg Tablet, 1 MG PO BID, (Reported) Entered as Reported by: JAMIE GOVEA on 04/20/19 1024 Colestipol HCl (Colestid) 1 Gm Tab, 1 GM PO BID, (Reported) Entered as Reported by: JESSICA GILMORE on 02/28/21 135 Cyanocobalamin (Vitamin B-12) (Vitamin B-12) 1,000 Mcg Tablet, 1,000 MCG PO DAILY, (Reported) Entered as Reported by: SERENITY COPELAND on 12/30/19 1818 Dapagliflozin Propanediol (Farxiga) 5 Mg Tablet, 5 MG PO DAILY, (Reported) Entered as Reported by: GRETA MANCILLA on 05/21/18 1455 Denosumab (Prolia) 60 Mg/1 Ml Disp.syrin, 60 MG INJ EVERY 6 MONTHS, (Reported) Entered as Reported by: SERENITY COPELAND on 05/05/20 1153 Dicyclomine HCl (Dicyclomine HCl) 20 Mg Tablet, 20 MG PO QID, (Reported) Entered as Reported by: JESSICA GILMORE on 02/28/21 135 Digoxin (Digoxin) 250 Mcg Tablet, 250 MCG PO DAILY, (Reported) Entered as Reported by: SERENITY COPELAND on 12/30/19 172 Diltiazem HCl (Diltiazem 24Hr Cd) 240 Mg Cap.er.24h, 240 MG PO DAILY, (Reported) Entered as Reported by: JESSICA GILMORE on 02/28/21 135 Donepezil HCl (Donepezil HCl) 10 Mg Tablet, 10 MG PO HS, (Reported) Entered as Reported by: GRETA MANCILLA on 11/26/16 1400 Doxycycline Monohydrate (Doxycycline Monohydrate) 100 Mg Tablet, 100 MG PO BID Prescribed by: ANTWAN PINEDA on 09/15/211917 Erenumab-Aooe (Aimovig Autoinjector) 70 Mg/1 Ml Auto.injct, 70 MG MONTHLY, (Reported) Entered as Reported by: SERENITY COPELAND on 12/30/191727 Ergocalciferol (Vitamin D2) (Vitamin D2) 1,250 Mcg Capsule, 1,250 MCG PO TWICE WEEKLY, (Reported) Entered as Reported by: JESSICA GILMORE on 02/28/211352 Famotidine (Pepcid) 40 Mg Tablet, 40 MG PO BID, (Reported) Entered as Reported by: JESSICA GILMORE on 02/28/21 135 Ferrous Sulfate (Ferrous Sulfate) 325 Mg Tablet, 325 MG PO DAILY, (Reported) Entered as Reported by: JESSICA GILMORE on 02/28/211352 Fluconazole (Diflucan) 150 Mg Tablet, 150 MG PO DAILY Prescribed by: ANTWAN PINEDA on 09/15/211918 Fluticasone Propionate (Fluticasone Propionate) 16 Gm [place].susp, 2 SPRAYS NS BID PRN for ALLERGIES, (Reported) Entered as Reported by: GRETA MANCILLA on 07/11/17 1530 Hydralazine HCl (Hydralazine HCl) 25 Mg Tablet, 25 MG PO TID, (Reported) Entered as Reported by: JESSICA GILMORE on 02/28/21 135 Hydroxyzine HCl (Hydroxyzine HCl) 25 Mg Tablet, 0.5 MG PO TID PRN for ITCHING Prescribed by: DAVIDSON RIVERS on 09/22/20 1541 L.acidoph & Paracasei,B.lactis (Probiotic) 1 Each Capsule, 1 EACH PO DAILY, (Reported) Entered as Reported by: SERENITY COPELAND on 12/30/19 1818 Lamotrigine (Lamictal) 25 Mg Tablet, 25 MG PO, (Reported) Entered as Reported by: JESSICA GILMORE on 02/28/21 135 Latanoprost/Pf (Latanoprost 0.005% Eye Drop) 7.5 Ml Drops, 7.5 ML OP, (Reported) Entered as Reported by: JESSICA GILMORE on 02/28/21 135 Levocetirizine Dihydrochloride (Levocetirizine Dihydrochloride) 5 Mg Tablet, 5 MG PO DAILY, (Reported) Entered as Reported by: URSZULA BELL on 05/14/18 0828 Meclizine HCl (Meclizine HCl) 25 Mg Tablet, 25 MG PO Q8H PRN for DIZZINESS, (Reported) Entered as Reported by: JESSICA GILMORE on 02/28/21 135 Meloxicam (Meloxicam) 7.5 Mg Tablet, 7.5 MG PO DAILY, (Reported) Entered as Reported by: JESSICA GILMORE on 02/28/21 135 Memantine HCl (Memantine HCl) 10 Mg Tablet, 10 MG PO HS, (Reported) Entered as Reported by: BIENVENIDO FARRELL on 07/28/15 1444 Metoprolol Succinate (Metoprolol Succinate) 50 Mg Tab.er.24h, 50 MG PO DAILY, (Reported) Entered as Reported by: JESSICA GILMORE on 02/28/21 135 Mirtazapine (Mirtazapine) 45 Mg Tablet, 45 MG PO HS, (Reported) Entered as Reported by: SERENITY COPELAND on 12/30/19 1728 Multivitamin (Multivitamin) 1 Each Tablet, 1 EACH PO DAILY, (Reported) Entered as Reported by: JESSICA GILMORE on 02/28/21 135 Nitrofurantoin Monohyd/M-Cryst (Macrobid 100 mg Capsule) 100 Mg Capsule, 1 TAB PO BID Prescribed by: SHUBHAM CODY on 03/28/21 2319 Nitroglycerin (Nitroglycerin) 0.4 Mg Tab.subl, 0.4 MG SL UD PRN for CHEST PAIN (ANGINA), (Reported) Entered as Reported by: SERENITY COPLEAND on 12/30/19 1728 Olanzapine (Olanzapine) 2.5 Mg Tablet, 2.5 MG PO HS, (Reported) Entered as Reported by: JESSICA GILMORE on 02/28/21 1353 Ondansetron (Ondansetron Odt) 8 Mg Tab.rapdis, 8 MG PO Q6H PRN for NAUSE A/VOMITING Prescribed by: SRAVAN BRUCE on 05/26/21 1321 Ondansetron HCl (Zofran) 4 Mg Tab, 4 MG PO Q8H, (Reported) Entered as Reported by: JESSICA GILMORE on 02/28/21 1354 Pantoprazole Sodium (Pantoprazole Sodium) 40 Mg Tablet.dr, 40 MG PO BID, (Reported) Entered as Reported by: GRETA MANCILLA on 05/21/18 1455 Prednisone (Prednisone) 10 Mg Tab, 5 MG PO DAILY, (Reported) Entered as Reported by: SERENITY COPELAND on 05/05/20 1153 Primidone (Mysoline) 250 Mg Tablet, 250 MG PO BID, (Reported) Entered as Reported by: JAMIE GOVEA on 04/20/19 1024 Promethazine HCl (Promethazine Tablet) 25 Mg Tablet, 25 MG PO Q6H PRN for NAUSEA/VOMITING Prescribed by: ANTWAN PINEDA on 09/15/21 1917 Ropinirole HCl (Ropinirole HCl) 2 Mg Tablet, 2 MG PO HS, (Reported) Entered as Reported by: SERENITY COPELAND on 12/30/19 1728 Sertraline HCl (Sertraline HCl) 100 Mg Tablet, 100 MG PO DAILY, (Reported) Entered as Reported by: GRETA MANCILLA on 07/11/17 1530 Simvastatin (Simvastatin) 20 Mg Tablet, 20 MG PO HS, (Reported) Entered as Reported by: BIENVENIDO FARRELL on 07/28/15 1444 Sucralfate (Carafate) 1 Gm Tablet, 1 GM PO QID, (Reported) Entered as Reported by: JESSICA GILMORE on 02/28/21 1354 Sumatriptan Succinate (Imitrex) 100 Mg Tablet, 100 MG PO DAILY PRN, (Reported) Entered as Reported by: JESSICA GILMORE on 02/28/21 1353 Venlafaxine HCl (Venlafaxine HCl) 75 Mg Tab, 75 MG PO DAILY, (Reported) Entered as Reported by: JESSICA GILMORE on 02/28/21 1354 Review of Systems Review of Systems Constitutional: No chills, No diaphoresis EENTM: No Eye Pain Respiratory: Denies Cough, Denies Orthopnea Cardiovascular: Denies Chest Pain, Denies Edema, Denies Irregular Heart Rate Gastrointestinal: Abdominal Pain, Diarrhea, Nausea, Vomiting Genitourinary: Denies Burning, Denies Discharge Musculoskeletal: No back pain, No joint pain Skin: No change in color, No change in hair/nails All Other Systems Reviewed Negative Unless Noted: Yes Past Eqywgrb-Ofqbiz-Hxrfcl Hx Patient Social History Tobacco Use?: Yes Tobacco type used: Cigarettes Smoking Status: Current Everyday Smoker Immunizations Up To Date Tetanus Booster (TDap): Unknown PED Vaccines UTD: No First/Initial COVID19 Vaccinat: 2020 Second COVID19 Vaccination Hugo: 2020 Third COVID19 Vaccination Date: 2021 Seasonal Allergies Seasonal Allergies: No Past Medical History Surgery/Hospitalization HX: 3 SURGERIES RECENTLY TO LEFT WRIST Surgeries: Yes (4 neck surgeries, thumb surgery both hands, bilat carple tunnel, bilat hip) Abdominal, Appendectomy, Bladder Surgery, Cardiac, Gallbladder, Joint Replacement, Orthopedic, Pancreatic, Tubal Ligation Respiratory: Yes (O2 AT HS & DURING DAY PRN) Asthma, COPD Currently Using CPAP: No Currently Using BIPAP: No Cardiac: Yes Atrial Fibrillation, Coronary Artery Disease, High Cholesterol, Hypertension, Irregular Heartbeat, Palpitations, Peripheral Vascular Neurological: Yes Dementia, Headaches /Migraines, Neuropathy 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 Disorders: No 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 Disorders: Denies [employer] History: Menopausal Sexually Transmitted Disease: No HIV/AIDS: No Genitourinary: Yes (SUPRAPUBIC CATH ) UTI-Chronic Gastrointestinal: Yes Gastroesophageal Reflux, Polyps, Hiatal Hernia, Gall Bladder Disease Musculoskeletal: Yes (CBP chronic knee pain, HIP REPLACEMENT 02/08/19) Arthritis Endocrine: Yes Hypothyroidsim, Diabetes, Non-Insulin dep HEENT: Yes (cataracts removed) Cataract Loss of Vision: Denies Hearing Impairment: Denies Cancer: Yes Bladder Did You Recieve Any Treatments: Yes What Type of Treatment Did You: Surgical Intervention Psychosocial: Yes Anxiety, Depression Integumentary: No Psoriasis Blood Disorders: No Adverse Reaction/Blood Tranf: No Family Medical History Cardiovascular disease G8 BROTHER (TRIPLE BYPASS) Diabetes mellitus 19 MOTHER FH: COPD (chronic obstructive pulmonary disease) 19 MOTHER FH: breast cancer 19 MOTHER FHx: brain cancer 19 FATHER No Pertinent Family Hx Physical Exam Vital Signs Vital Signs - First Documented 09/15/21 09/15/21 17:11 19:22 Temp 36.3 Pulse 102 Resp 30 B/P (MAP) 134/86 (102) Pulse Ox 95 O2 Delivery Room Air Capillary Refill : Height/Weight/BMI Height: 5'4.00" Weight: 165lbs. 0.0oz. [id number]; 27.00 BMI Method:Stated General Appearance: WD/WN, no apparent distress HEENT: PERRL/EOMI, normal ENT inspection, TMs normal, pharynx normal Neck: non-tender, full range of motion, supple, normal inspection Respiratory: chest non-tender, lungs clear, normal breath sounds, no respiratory distress, no accessory muscle use Cardiovascular: no edema, no gallop, irregularly irregular Gastrointestinal: normal bowel sounds, soft, no organomegaly, tenderness (Generalized abdominal tenderness on palpation. Normal bowel sounds throughout) Extremities: normal range of motion, non-tender, normal inspection, no pedal edema Back: normal inspection, no CVA tenderness Neurologic/Psychiatric: block mason II-XII nml as tested, no motor/sensory deficits, alert, normal mood/affect, oriented x 3 Skin: normal color, warm/dry Progress/Results/Core Measures Results/Orders Lab Results Laboratory Tests Test 09/15/21 17:15 09/15/21 17:20 Range/Units White Blood Count 6.8 4.3-11.0 10^3/uL Red Blood Count 4.97 3.80-5.11 10^6/uL Hemoglobin 15.2 11.5-16.0 g/dL Hematocrit 46 35-52 % Mean Corpuscular Volume 93 80-99 fL Mean Corpuscular Hemoglobin 31 25-34 pg Mean Corpuscular Hemoglobin Concent 33 32-36 g/dL Red Cell Distribution Width 13.5 10.0-14.5 % Platelet Count 226 130-400 10^3/uL Mean Platelet Volume 9.5 9.0-12.2 fL Immature Granulocyte % (Auto) 0 % Neutrophils (%) (Auto) 56 42-75 % Lymphocytes (%) (Auto) 28 12-44 % Monocytes (%) (Auto) 11 0-12 % Eosinophils (%) (Auto) 4 0-10 % Basophils (%) (Auto) 1 0-10 % Neutrophils # (Auto) 3.8 1.8-7.8 10^3/uL Lymphocytes # (Auto) 1.9 1.0-4.0 10^3/uL Monocytes # (Auto) 0.7 0.0-1.0 10^3/uL Eosinophils # (Auto) 0.3 0.0-0.3 10^3/uL Basophils # (Auto) 0.0 0.0-0.1 10^3/uL Immature Granulocyte # (Auto) 0.0 0.0-0.1 10^3/uL Sodium Level 138 135-145 MMOL/L Potassium Level 3.7 3.6-5.0 MMOL/L Chloride Level 106 98-107 MMOL/L Carbon Dioxide Level 18 L 21-32 MMOL/L Anion Gap 14 5-14 MMOL/L Blood Urea Nitrogen 5 L 7-18 MG/DL Creatinine 0.65 0.60-1.30 MG/DL Estimat Glomerular Filtration Rate 96 BUN/Creatinine Ratio 8 Glucose Level 114 H 70-105 MG/DL Calcium Level 9.6 8.5-10.1 MG/DL Corrected Calcium 9.5 8.5-10.1 MG/DL Total Bilirubin 0.5 0.1-1.0 MG/DL Aspartate Amino Transf (AST/SGOT) 25 5-34 U/L Alanine Aminotransferase (ALT/SGPT) 24 0-55 U/L Alkaline Phosphatase 122 40-136 U/L C-Reactive Protein High Sensitivity 0.29 0.00-0.50 MG/DL Total Protein 7.2 6.4-8.2 GM/DL Albumin 4.1 3.2-4.5 GM/DL Lipase 87 H 8-78 U/L Urine Color YELLOW Urine Clarity CLEAR Urine pH 7.0 5-9 Urine Specific Marble 1.010 L 1.016-1.022 Urine Protein NEGATIVE NEGATIVE Urine Glucose (UA) NEGATIVE NEGATIVE Urine Ketones NEGATIVE NEGATIVE Urine Nitrite POSITIVE H NEGATIVE Urine Bilirubin NEGATIVE NEGATIVE Urine Urobilinogen 0.2 < = 1.0 MG/DL Urine Leukocyte Esterase TRACE H NEGATIVE Urine RBC (Auto) 2+ H NEGATIVE Urine RBC 10-25 H /HPF Urine WBC 2-5 /HPF Urine Squamous Epithelial Cells NONE /HPF Urine Crystals NONE /LPF Urine Bacteria FEW H /HPF Urine Casts NONE /LPF Urine Mucus NEGATIVE /LPF Urine Yeast MODERATE H /HPF Urine Culture Indicated YES My Orders Orders - DB PACK Cbc With Automated Diff (09/15/21 17:13) Comprehensive Metabolic Panel (09/15/21 17:13) Lipase (09/15/21 17:13) Ns Iv 1000 Ml (Sodium Chloride 0.9%) (09/15/21 17:13) Hs C Reactive Protein (09/15/21 17:13) Ua Culture If Indicated (09/15/21 17:13) Ondansetron Injection (Zofran Injectio (09/15/21 17:30) Urine Culture (09/15/21 17:20) Ct Abdomen/Pelvis W (09/15/21 18:12) Promethazine Injection (Phenergan Injec (09/15/21 18:15) Fentanyl Inj (Sublimaze Injection) (09/15/21 18:12) Iohexol Injection (Omnipaque 350 Mg/Ml 1 (09/15/21 18:30) Received Contrast (Hold Metformin- Contr (09/15/21 18:30) Sodium Chloride Flush (Catheter Flush Sy (09/15/21 18:30) Ns (Ivpb) (Sodium Chloride 0.9% Ivpb Bag (09/15/21 18:30) Medications Given in ED Vital Signs/I&O 09/15/21 09/15/21 17:11 19:22 Temp 36.3 36.5 Pulse 102 88 Resp 30 20 B/P (MAP) 134/86 (102) 141/86 Pulse Ox 95 O2 Delivery Room Air Room Air 09/16/21 00:00 Intake Total 1000 ml Balance 1000 ml Departure Communication (PCP) Patient presents ED with vomiting and diarrhea over the past week. She started taking clindamycin and Keflex secondary to infection in her wrist. This was a postsurgical complication. Currently being managed by [facility]. She denies of any odor to her stool. Denies of any bloody stool, mucousy stool or hematemesis. Attempted to obtain a stool culture here patient did not provide a sample. Patient urinalysis concerning for infection however this is likely more contamination. Does have a urostomy with similar type results in the past. She does have generalized tenderness on exam. She is afebrile. Does wear 4 L of oxygen at home. No signs of respiratory distress. No chest pain. Lab work was otherwise unremarkable besides slightly elevated lipase 87. Normal white blood count. She was given a liter of fluid with improvement. Phenergan with improvement of her nausea. Tolerating p.o. fluids. She is requesting nausea me dication at home. Concerned that vomiting and diarrhea may be related to the antibiotics. We will switch from clindamycin and Keflex to doxycycline for the infection of the ER. She will need to discuss this with her surgeon at [facility]. CT scan was negative for diverticulitis or colitis. Recommend providing stool culture if not today to primary care physician in the next 1 to 2 days to rule out C. difficile. Imaging reassuring. She states she feels much better at this time. She is requesting nausea medication. Will discharge with Phenergan. Outpatient follow-up with PCP in 2 to 3 days for reevaluation. Urine culture currently pending. Impression Primary Impression: Vomiting and diarrhea Disposition: 01 HOME, SELF-CARE Condition: Stable Departure-Patient Inst. Decision time for Depature: 19:15 Referrals: VIPIN GOODMAN DO (PCP/Family) Primary Care Physician Patient Instructions: Diarrhea, Adult ED Add. Discharge Instructions: We will switch up the antibiotics to doxycycline from the clindamycin. Discharged few days worth of Phenergan. Recommend oral hydration. Follow-up your primary care physician 2 to 3 days for reevaluation. Recommend outpatient stool culture if symptoms progress All discharge instructions reviewed with patient and/or family. Voiced understanding. Scripts Fluconazole (Diflucan) 150 Mg Tablet 150 MG PO DAILY, #1 TAB Prov: DB PACK 09/15/21 Doxycycline Monohydrate (Doxycycline Monohydrate) 100 Mg Tablet 100 MG PO BID for 7 Days, #14 TAB Prov: DB PACK 09/15/21 Promethazine HCl (Promethazine Tablet) 25 Mg Tablet 25 MG PO Q6H PRN for NAUSEA/VOMITING, #8 TAB Prov: DB PACK 09/15/21 DB PACK Sep 15, 2021 17:21
[2021-09-15 17:24] LABS: BASOPHILS % (AUTO) 1 % (0-10); EOSINOPHILS # (AUTO) 0.3 10^3/uL (0.0-0.3); EOSINOPHILS % (AUTO) 4 % (0-10); HEMATOCRIT 46 % (35-52); HEMOGLOBIN 15.2 g/dL (11.5-16.0); LYMPHOCYTES # (AUTO) 1.9 10^3/uL (1.0-4.0); LYMPHOCYTES % (AUTO) 28 % (12-44); MEAN CORPUSCULAR HEMOGLOBIN 31 pg (25-34); MEAN CORPUSCULAR HGB CONC 33 g/dL (32-36); MEAN CORPUSCULAR VOLUME 93 fL (80-99); MEAN PLATELET VOLUME 9.5 fL (9.0-12.2); MONOCYTES # (AUTO) 0.7 10^3/uL (0.0-1.0); MONOCYTES % (AUTO) 11 % (0-12); NEUTROPHILS # (AUTO) 3.8 10^3/uL (1.8-7.8); NEUTROPHILS % (AUTO) 56 % (42-75); PLATELET COUNT 226 10^3/uL (130-400); WHITE BLOOD COUNT 6.8 10^3/uL (4.3-11.0)
[2021-09-15 17:29] LABS: BILIRUBIN,URINE NEGATIVE (NEGATIVE); CLARITY,URINE CLEAR; COLOR,URINE YELLOW; GLUCOSE, URINE (UA) NEGATIVE (NEGATIVE); KETONES,URINE NEGATIVE (NEGATIVE); LEUKOCYTE ESTERASE ,URINE TRACE (NEGATIVE); NITRITE,URINE POSITIVE (NEGATIVE); PROTEIN,URINE NEGATIVE (NEGATIVE)
[2021-09-15] MEDS ORDERED: ONDANSETRON 4 MG/2 ML (SDV) Z0FRAN IVP ONE (17:30)
[2021-09-15 17:40] LABS: BACTERIA,URINE FEW /HPF; YEAST,URINE MODERATE /HPF
[2021-09-15 17:44] LABS: ALBUMIN 4.1 GM/DL (3.2-4.5); POTASSIUM 3.7 MMOL/L (3.6-5.0)
[2021-09-15 17:45] LABS: CALCIUM 9.6 MG/DL (8.5-10.1)
[2021-09-15 17:46] LABS: TOTAL PROTEIN 7.2 GM/DL (6.4-8.2)
[2021-09-15 17:48] LABS: BILIRUBIN,TOTAL 0.5 MG/DL (0.1-1.0)
[2021-09-15 17:50] LABS: CREATININE SERUM 0.65 MG/DL (0.60-1.30)
[2021-09-15] MEDS ORDERED: fentaNYL INJ 100 MCG/2 ML AMP IVP STA (18:12)
[2021-09-15] MEDS ORDERED: PROMETHAZINE INJ 25 MG/ML (PHENERGAN) AMP IVP ONE (18:15)
[2021-09-15] MEDS ORDERED: NS 100 ML (IVPB) BAG IV ONE (18:30)
[2021-09-15] MEDS ORDERED: CATHETER FLUSH 10 ML SYR IV PRN (18:30)
[2021-09-15] MEDS ORDERED: IOHEXOL 350 MG/ML 100 ML (OMNIPAQUE 350) VIAL IV ONE (18:30)
[2021-09-15] MEDS ORDERED: HOLD METFORMIN - RECEIVED CONTRAST 20 ML VIAL IV SCH (18:30)
--- NOTE | 2021-09-15 19:09 | Diagnostic Imaging Report ---
PROCEDURE: CT abdomen and pelvis with contrast. TECHNIQUE: Multiple contiguous axial images were obtained through the abdomen and pelvis after administration of intravenous contrast. Auto Exposure Controls were utilized during the CT exam to meet ALARA standards for radiation dose reduction. All CT scans use one or more of the following dose optimizing techniques: automated exposure control, MA and/or KvP adjustment based on patient size and exam type or iterative reconstruction. INDICATION: Left lower quadrant abdominal pain. Vomiting. COMPARISON: Abdominal radiographs 05/26/2021. CT abdomen and pelvis with IV contrast 10/05/2020. FINDINGS: Mild atelectasis in the lung bases. Cholecystectomy. Appendectomy. The pelvis is obscured by streak artifact from bilateral THAs. The bladder is not well seen. Right lower quadrant ostomy likely represents a urostomy. No evidence of bowel obstruction. The liver, pancreas, spleen, adrenals and kidneys are negative. No hydronephrosis. 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 structures are grossly unremarkable. No free intraperitoneal air or fluid. No lymphadenopathy. Moderate to advanced atherosclerotic calcifications. No acute osseous finding. IMPRESSION: 1. No acute CT finding in the abdomen or pelvis. 2. The pelvis is obscured by streak artifact from bilateral THAs. The bladder is not well seen and may be surgically absent. A right lower quadrant ostomy likely represents a urostomy. No hydronephrosis. 3. Cholecystectomy. Dictated by: Dictated on workstation # [id number]
[2021-09-15] MEDS ORDERED: PROM25TA14 PO (19:17)
[2021-09-15] MEDS ORDERED: DOXY100T31 PO (19:18)
[2021-09-15] MEDS ORDERED: FLUC150T PO (19:19)
[2021-09-15 19:22] VITALS: BP 141/86
== END 2021-09-15 19:26 | disposition home or self-care (01) ==
LOC: EDUNIT# 17:04 → ER 17:05
DX: R11.2 Nausea with vomiting, unspecified (principal); R19.7 Diarrhea, unspecified; L08.89 Other specified local infections of the skin and subcutaneous tissue; J44.9 Chronic obstructive pulmonary disease, unspecified; F17.210 Nicotine dependence, cigarettes, uncomplicated; Z79.2 Long term (current) use of antibiotics; Z99.81 Dependence on supplemental oxygen; Z90.49 Acquired absence of other specified parts of digestive tract; Z88.1 Allergy status to other antibiotic agents
CPT/HCPCS: 36415; 74177; 80053; 81000; 83690; 85025; 86141; 87077; 87088; 87106; 87186

== ENCOUNTER → 2021-11-02 | Outpatient (CLI) | payer MEDICARE, MEDICAID ==
[~2021-11-02] MED LIST changes: +BARIUM for suspension 98% w/w (Vanilla Silq High Density) PO ONE; +CATHETER FLUSH 10 ML SYR IV PRN; +DOXY100T31 PO; +FLUC150T PO; +HOLD METFORMIN - RECEIVED CONTRAST 20 ML VIAL IV SCH; +IOHEXOL 350 MG/ML 100 ML (OMNIPAQUE 350) VIAL IV ONE; +NS 100 ML (IVPB) BAG IV ONE; +PROM25TA14 PO
[2021-11-02 07:54] LABS: CREATININE SERUM 0.61 MG/DL (0.60-1.30)
--- NOTE | 2021-11-02 12:27 | Diagnostic Imaging Report ---
CLINICAL INDICATION: Patient with dysphagia, globus sensation. Patient has history of tobacco use. Abnormal ear pain. EXAM: Axial CT scan of the neck soft tissue performed with 75 mL of Omnipaque 350 IV contrast. Sagittal and coronal reformatted images were created. COMPARISON: CT angiogram of the head and neck dated 12/26/2016. FINDINGS: There is no neck soft tissue mass, fluid collection, or fat stranding. There is stable appearance of the supraglottic larynx and true vocal cord region. True vocal cord region is closed. The nasopharynx, oropharynx, hypopharynx, and laryngeal soft tissue structures are unremarkable. There is no lymphadenopathy. There are hypertrophic anterior spurs seen at the T1-T2 level, which slightly encroach upon the posterior aspect of the lower cervical esophagus. Again seen postop change to the cervical spine with C3 through C7 posterior spinal fusion hardware. There is anterior cervical disc fusion at the C5-C6 and C7-T1 level with anterior disc fusion hardware. There is solid bony bridging/fusion seen from the C3-C4, C4-C5, and C6-C7 levels. There are laminectomies involving the C3 through C7. Salivary glands are unremarkable. Thyroid gland is unremarkable. Visualized upper lung trevizo show emphysematous lung disease. Limited visualization of the intracranial structures is unremarkable. IMPRESSION: 1: There is stable appearance to the neck soft tissue structures with no soft tissue mass, fluid collection, or fat stranding. 2: Stable hypertrophic anterior spurring at the T1-T2 level, which causes some encroachment upon the posterior aspect of the lower cervical esophagus. Dictated by: Dictated on workstation # [id number]
--- NOTE | 2021-11-03 21:52 | Diagnostic Imaging Report ---
INDICATION: Difficulty swallowing. EXAMINATION: Barium swallow. A double contrast exam was performed. The previous barium swallow exam of 04/23/2019 noted that the esophagus was widely patent. There was an area in the mid thoracic esophagus which was a slightly narrower caliber than the remainder of the esophagus. The access consultant film of this exam is unremarkable for an acute abnormality. There is excretion of the contrast used for the CT neck exam, performed earlier today, by both kidneys. For this exam, the patient swallowed the contrast material without difficulty. There was no delay or obstruction of passage of the contrast through the esophagus. The was slight narrowing of the midesophagus, seen previously, and this is again evident and essentially no different. There is still no mass or stricture evident in this area. There is no sign of a hiatal hernia nor is there any evidence for reflux. Stomach shows fairly good distensibility and motility. There is no mass or ulceration. However, there does seem to be some thickening of the wall of the 2nd and 3rd portions of the duodenum and this appearance is suspicious for duodenitis. IMPRESSION: 1. There is still no evidence for obstruction of the esophagus. There is no sign of a hiatal hernia or gastroesophageal reflux either. 2. The thickening of the folds of the 2nd and 3rd portion of the duodenum is worrisome for duodenitis. Clinical follow-up is recommended. Dictated on workstation # [id number]
== END ==
LOC: RAD 08:45
PROVIDERS: ATTEND Otolaryngology Otolaryngology/Facial Plastic Surgery
DX: K31.9 Disease of stomach and duodenum, unspecified (principal)
CPT/HCPCS: 36415; 70491; 74220; 82565; 84520

== ENCOUNTER 2021-11-07 10:21 | Observation (INO) | payer OTHER, MEDICARE, MEDICAID ==
[~2021-11-07] VITALS: Ht 167 cm; Wt 71.1 kg
[~2021-11-07 10:21] MED LIST changes: -BARIUM for suspension 98% w/w (Vanilla Silq High Density) PO ONE; -CATHETER FLUSH 10 ML SYR IV PRN; -COLE3.75 PO; +COLE625T30 PO; -COLE625T9 PO; -HOLD METFORMIN - RECEIVED CONTRAST 20 ML VIAL IV SCH; -IOHEXOL 350 MG/ML 100 ML (OMNIPAQUE 350) VIAL IV ONE; +LEVO750T PO; -LEVO750T39 PO; -NS 100 ML (IVPB) BAG IV ONE; -NYST15CR TP; +NYST15CR35 TP; +[UNRECOGNIZED DRUG - CODE] PO
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
[2021-11-07 10:40] LABS: HEMATOCRIT 37 % (35-52); HEMOGLOBIN 11.8 g/dL (11.5-16.0); MEAN CORPUSCULAR HEMOGLOBIN 30 pg (25-34); MEAN CORPUSCULAR HGB CONC 32 g/dL (32-36); MEAN CORPUSCULAR VOLUME 95 fL (80-99); MEAN PLATELET VOLUME 10.2 fL (9.0-12.2); PLATELET COUNT 216 10^3/uL (130-400); WHITE BLOOD COUNT 8.1 10^3/uL (4.3-11.0)
[2021-11-07] MEDS ORDERED: fentaNYL INJ 100 MCG/2 ML AMP IVP ONE ×2 (10:45→12:00)
[2021-11-07] MEDS ORDERED: NS IV 500 ML 500 ML IV ONE (10:45)
[2021-11-07] MEDS ORDERED: ceFAZolin INJECTION 1,000 MG VIAL IV ONE (10:45)
[2021-11-07] MEDS ORDERED: TETANUS,DIPTH,PERTUSS P/F (BOOSTRIX) 0.5 ML VIAL IM ONE (10:45)
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
[2021-11-07 10:55] LABS: ALBUMIN 3.8 GM/DL (3.2-4.5); CHLORIDE 109 MMOL/L (98-107); SODIUM 137 MMOL/L (135-145)
[2021-11-07 10:57] LABS: CALCIUM 9.4 MG/DL (8.5-10.1)
[2021-11-07 10:58] LABS: GLUCOSE 131 MG/DL (70-105); TOTAL PROTEIN 6.1 GM/DL (6.4-8.2)
[2021-11-07 10:59] LABS: CARBON DIOXIDE 20 MMOL/L (21-32)
[2021-11-07 11:00] LABS: BILIRUBIN,TOTAL 0.6 MG/DL (0.1-1.0)
[2021-11-07] MEDS ORDERED: HOLD METFORMIN - RECEIVED CONTRAST 20 ML VIAL IV SCH (11:00)
[2021-11-07] MEDS ORDERED: IOHEXOL 350 MG/ML 100 ML (OMNIPAQUE 350) VIAL IV ONE (11:00)
[2021-11-07] MEDS ORDERED: NS 100 ML (IVPB) BAG IV ONE (11:00)
[2021-11-07 11:01] LABS: ALKALINE PHOSPHATASE 70 U/L (40-136)
[2021-11-07 11:02] LABS: CREATININE SERUM 0.62 MG/DL (0.60-1.30); GFR ESTIMATED 97
[2021-11-07 11:03] LABS: BILIRUBIN,DIRECT 0.3 MG/DL (0.0-0.3); BILIRUBIN,INDIRECT 0.3 MG/DL; BUN/CREATININE RATIO 31
[2021-11-07 11:05] LABS: ALANINE AMINOTRANSFERASE 39 U/L (0-55)
[2021-11-07] MEDS ORDERED: fentaNYL INJ 100 MCG/2 ML AMP ONE ×3 (11:23→22:06)
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
[2021-11-07] MEDS ORDERED: HYDROmorphone 2 MG/ML VIAL (DILAUDID) IVP ONE ×2 (12:45→15:30)
[2021-11-07] MEDS ORDERED: LIDOCAINE 1% INJ 20 ML VIAL ONE (13:40)
[2021-11-07 13:41] LABS: BILIRUBIN,URINE NEGATIVE (NEGATIVE); CLARITY,URINE CLEAR; COLOR,URINE YELLOW; GLUCOSE, URINE (UA) TRACE (NEGATIVE); KETONES,URINE NEGATIVE (NEGATIVE); LEUKOCYTE ESTERASE ,URINE NEGATIVE (NEGATIVE); NITRITE,URINE NEGATIVE (NEGATIVE); PROTEIN,URINE NEGATIVE (NEGATIVE)
[2021-11-07] MEDS ORDERED: NS (IVPB) 50 ML ONE (13:41)
[2021-11-07] MEDS ORDERED: KETAMINE 50 MG/5 ML SYRINGE IV ONE ×2 (13:45→15:45)
[2021-11-07] MEDS ORDERED: LIDOCAINE 1% INJ 20 ML VIAL INJ ONE (13:45)
[2021-11-07] MEDS ORDERED: NS (IVPB) 50 ML IV ONE ×2 (14:00→16:00)
[2021-11-07 14:19] LABS: RBC,URINE 0-2 /HPF
[2021-11-07 14:21] LABS: BACTERIA,URINE FEW /HPF; HYALINE CASTS, URINE RARE /LPF
[2021-11-07 14:22] LABS: YEAST,URINE MODERATE /HPF
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
[2021-11-07] MEDS ORDERED: RT-ALBUTEROL/IPRATROPIUM 3 ML (DUONEB) VIAL INH PRN (16:30)
[2021-11-07] MEDS ORDERED: HYDROmorphone 2 MG/ML VIAL (DILAUDID) IV ONE (18:00)
[2021-11-07] MEDS ORDERED: HYDROmorphone 2 MG/ML VIAL (DILAUDID) IVP PRN ×2 (19:00)
[2021-11-07] MEDS ORDERED: CATHETER FLUSH 10 ML SYR IV PRN (19:00)
[2021-11-07 19:39] VITALS: BP 119/62
[2021-11-07] MEDS ORDERED: NS IV 1000 ML 1,000 ML ONE (20:29)
[2021-11-07] MEDS ORDERED: NS IV 1000 ML 1,000 ML IV SCH (20:30)
[2021-11-07] MEDS: ACETAMINOPHEN 500 MG TAB (TYLENOL) PO PRN (20:52)
[2021-11-07] MEDS ORDERED: fentaNYL INJ 100 MCG/2 ML AMP IVP PRN (21:00)
[2021-11-07] MEDS ORDERED: RT-ALBUTEROL SULF 2.5 MG/3 ML PRE-MIX VIAL ONE (21:20)
[2021-11-07] MEDS: RT-ALBUTEROL SULF 2.5 MG/3 ML PRE-MIX VIAL INH SCH (21:31)
[2021-11-07] MEDS: CATHETER FLUSH 10 ML SYR IV SCH (22:02)
[2021-11-07] MEDS: fentaNYL INJ 100 MCG/2 ML AMP IVP PRN ×2 (22:09→23:55)
[2021-11-08] MEDS: fentaNYL INJ 100 MCG/2 ML AMP IVP PRN ×8 (01:12→22:56)
[2021-11-08] MEDS: RT-ALBUTEROL SULF 2.5 MG/3 ML PRE-MIX VIAL INH SCH ×4 (02:50→21:35)
[2021-11-08] MEDS ORDERED: NS IV 1000 ML 1,000 ML ONE (03:06)
[2021-11-08] MEDS ORDERED: NS IV 1000 ML 1,000 ML IV ONE (03:15)
[2021-11-08 04:46] LABS: BASOPHILS % (AUTO) 0 % (0-10); EOSINOPHILS # (AUTO) 0.1 10^3/uL (0.0-0.3); EOSINOPHILS % (AUTO) 1 % (0-10); HEMATOCRIT 35 % (35-52); HEMOGLOBIN 10.8 g/dL (11.5-16.0); LYMPHOCYTES # (AUTO) 1.3 10^3/uL (1.0-4.0); LYMPHOCYTES % (AUTO) 17 % (12-44); MEAN CORPUSCULAR HEMOGLOBIN 30 pg (25-34); MEAN CORPUSCULAR HGB CONC 31 g/dL (32-36); MEAN CORPUSCULAR VOLUME 98 fL (80-99); MEAN PLATELET VOLUME 10.5 fL (9.0-12.2); MONOCYTES # (AUTO) 0.9 10^3/uL (0.0-1.0); MONOCYTES % (AUTO) 12 % (0-12); NEUTROPHILS # (AUTO) 5.2 10^3/uL (1.8-7.8); NEUTROPHILS % (AUTO) 69 % (42-75); PLATELET COUNT 163 10^3/uL (130-400); WHITE BLOOD COUNT 7.5 10^3/uL (4.3-11.0)
[2021-11-08 05:02] LABS: CHLORIDE 116 MMOL/L (98-107); POTASSIUM 3.7 MMOL/L (3.6-5.0); SODIUM 143 MMOL/L (135-145)
[2021-11-08 05:03] LABS: CALCIUM 8.3 MG/DL (8.5-10.1)
[2021-11-08 05:04] LABS: GLUCOSE 146 MG/DL (70-105)
[2021-11-08 05:05] LABS: CARBON DIOXIDE 20 MMOL/L (21-32)
[2021-11-08 05:07] LABS: CREATININE SERUM 0.58 MG/DL (0.60-1.30); GFR ESTIMATED 99
[2021-11-08 05:08] LABS: BUN/CREATININE RATIO 19
[2021-11-08] MEDS: ACETAMINOPHEN 500 MG TAB (TYLENOL) PO PRN (05:59)
[2021-11-08] MEDS: CATHETER FLUSH 10 ML SYR IV SCH ×3 (06:12→22:51)
[2021-11-08] MEDS ORDERED: ONDANSETRON 4 MG/2 ML (SDV) Z0FRAN ONE (06:21)
[2021-11-08] MEDS: ONDANSETRON 4 MG/2 ML (SDV) Z0FRAN IVP PRN ×3 (06:27→21:53)
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
[2021-11-08] MEDS ORDERED: NITR0.4T42 SL (11:32)
[2021-11-08] MEDS ORDERED: ASCO500T17 PO (11:32)
[2021-11-08] MEDS ORDERED: DILT90TA PO (11:32)
[2021-11-08] MEDS ORDERED: ROSU20TA32 PO (11:32)
[2021-11-08] MEDS ORDERED: SUVO10TA2 PO (11:32)
[2021-11-08] MEDS ORDERED: RIFA550T PO (11:32)
[2021-11-08] MEDS ORDERED: FLDR.1T PO (11:32)
[2021-11-08] MEDS ORDERED: DOXY100T2 PO (11:32)
[2021-11-08] MEDS ORDERED: MAGN400T39 PO (11:32)
[2021-11-08] MEDS ORDERED: LAMO25TA8 PO (11:32)
[2021-11-08] MEDS ORDERED: NICO10CA NS (11:32)
[2021-11-08] MEDS ORDERED: TRZ50T PO (11:32)
[2021-11-08] MEDS ORDERED: MELO15TA39 PO (11:32)
[2021-11-08] MEDS ORDERED: GBPN600T PO (11:32)
[2021-11-08] MEDS ORDERED: ISOS30TA82 PO (11:32)
[2021-11-08] MEDS ORDERED: LATA2.5D19 OU (11:32)
[2021-11-08] MEDS ORDERED: PYRI50CA PO (11:32)
[2021-11-08] MEDS ORDERED: POTA99TA26 PO (11:32)
[2021-11-08] MEDS ORDERED: BUSP15TA60 PO (12:16)
[2021-11-08] MEDS ORDERED: MONT-40 PO (12:16)
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
[2021-11-08] MEDS: ALPRAZolam 1 MG (XANAX) TAB PO PRN ×3 (15:56→21:54)
[2021-11-08] MEDS: DOCUSATE SODIUM 100 MG (COLACE) CAP PO SCH ×2 (15:56→22:50)
[2021-11-08] MEDS ORDERED: NITROGLYCERIN 0.4 MG SL TABS BTL 25'S SL PRN (17:00)
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
[2021-11-08] MEDS: LATANOPROST 0.005% (XALATAN) OPHTH SOLN 2.5 ML OU SCH (22:10)
[2021-11-08] MEDS: lamoTRIgine 25 MG (LaMICtal) TAB PO SCH (22:49)
[2021-11-08] MEDS: APIXABAN 5 MG (ELIQUIS) TABLET PO SCH (22:49)
[2021-11-08] MEDS: MONTELUKAST 10 MG (SINGULAIR) TAB PO SCH (22:50)
[2021-11-08] MEDS: traZODone 50 MG (DESYREL) TAB PO SCH (22:50)
[2021-11-08] MEDS: GABAPENTIN 600 MG (NEURONTIN) TAB PO SCH (22:50)
[2021-11-08] MEDS: busPIRone 15 MG (BUSPAR) TABLET PO SCH (22:50)
[2021-11-08] MEDS: clonazePAM 1 MG (KlonoPIN) TAB PO SCH (22:50)
[2021-11-08] MEDS: rOPINIRole 1 MG (REQUIP) TABLET PO SCH (22:51)
[2021-11-08] MEDS: FLUDROCORTISONE 0.1 MG (FLORINEF) TAB PO SCH (22:55)
[2021-11-09] MEDS: fentaNYL INJ 100 MCG/2 ML AMP IVP PRN ×5 (04:08→13:57)
[2021-11-09] MEDS: ONDANSETRON 4 MG/2 ML (SDV) Z0FRAN IVP PRN (05:09)
[2021-11-09 05:26] LABS: BASOPHILS % (AUTO) 0 % (0-10); EOSINOPHILS # (AUTO) 0.2 10^3/uL (0.0-0.3); EOSINOPHILS % (AUTO) 2 % (0-10); HEMATOCRIT 42 % (35-52); HEMOGLOBIN 13.2 g/dL (11.5-16.0); LYMPHOCYTES # (AUTO) 1.1 10^3/uL (1.0-4.0); LYMPHOCYTES % (AUTO) 14 % (12-44); MEAN CORPUSCULAR HEMOGLOBIN 30 pg (25-34); MEAN CORPUSCULAR HGB CONC 32 g/dL (32-36); MEAN CORPUSCULAR VOLUME 96 fL (80-99); MONOCYTES # (AUTO) 0.6 10^3/uL (0.0-1.0); MONOCYTES % (AUTO) 8 % (0-12); NEUTROPHILS # (AUTO) 5.7 10^3/uL (1.8-7.8); NEUTROPHILS % (AUTO) 75 % (42-75); PLATELET COUNT 161 10^3/uL (130-400); WHITE BLOOD COUNT 7.6 10^3/uL (4.3-11.0)
[2021-11-09] MEDS: CATHETER FLUSH 10 ML SYR IV SCH ×3 (05:26→20:10)
[2021-11-09 05:41] LABS: CALCIUM 9.2 MG/DL (8.5-10.1)
[2021-11-09 05:45] LABS: CREATININE SERUM 0.57 MG/DL (0.60-1.30)
[2021-11-09] MEDS: RT-ALBUTEROL SULF 2.5 MG/3 ML PRE-MIX VIAL INH SCH ×4 (07:33→21:45)
[2021-11-09] MEDS: clonazePAM 1 MG (KlonoPIN) TAB PO SCH ×2 (08:07→20:09)
[2021-11-09] MEDS: DOCUSATE SODIUM 100 MG (COLACE) CAP PO SCH ×2 (08:07→20:09)
[2021-11-09] MEDS: busPIRone 15 MG (BUSPAR) TABLET PO SCH ×2 (08:07→20:09)
[2021-11-09] MEDS: lamoTRIgine 25 MG (LaMICtal) TAB PO SCH ×2 (08:07→20:09)
[2021-11-09] MEDS: VENlafaxine 75 MG (EFFEXOR) TAB PO SCH (08:07)
[2021-11-09] MEDS: ISOSORBIDE MONONITRATE 30 MG (IMDUR) TAB PO SCH (08:07)
[2021-11-09] MEDS: ALPRAZolam 1 MG (XANAX) TAB PO PRN ×2 (08:07→22:24)
[2021-11-09] MEDS: GABAPENTIN 600 MG (NEURONTIN) TAB PO SCH ×3 (08:08→20:09)
[2021-11-09] MEDS: APIXABAN 5 MG (ELIQUIS) TABLET PO SCH ×2 (08:08→20:10)
[2021-11-09] MEDS: MEMANTINE 10 MG (NAMENDA) TABLET PO SCH (08:08)
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
[2021-11-09] MEDS ORDERED: meTOproloL SUCCINATE 50 MG (TOPROL XL) TAB PO SCH (09:00)
[2021-11-09] MEDS ORDERED: ROSUVASTATIN 20 MG (CRESTOR) TABLET PO SCH (09:00)
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
[2021-11-09] MEDS: rOPINIRole 1 MG (REQUIP) TABLET PO SCH (20:09)
[2021-11-09] MEDS: MONTELUKAST 10 MG (SINGULAIR) TAB PO SCH (20:09)
[2021-11-09] MEDS: traZODone 50 MG (DESYREL) TAB PO SCH (20:09)
[2021-11-09] MEDS: LATANOPROST 0.005% (XALATAN) OPHTH SOLN 2.5 ML OU SCH (20:12)
[2021-11-10] MEDS: RT-ALBUTEROL SULF 2.5 MG/3 ML PRE-MIX VIAL INH SCH ×4 (02:31→21:51)
[2021-11-10] MEDS: CATHETER FLUSH 10 ML SYR IV SCH ×3 (05:00→22:11)
[2021-11-10 06:25] LABS: BASOPHILS % (AUTO) 0 % (0-10); MEAN CORPUSCULAR HEMOGLOBIN 30 pg (25-34)
[2021-11-10 06:27] LABS: EOSINOPHILS # (AUTO) 0.2 10^3/uL (0.0-0.3); EOSINOPHILS % (AUTO) 2 % (0-10); HEMATOCRIT 37 % (35-52); HEMOGLOBIN 11.5 g/dL (11.5-16.0); LYMPHOCYTES # (AUTO) 1.3 10^3/uL (1.0-4.0); LYMPHOCYTES % (AUTO) 15 % (12-44); MEAN CORPUSCULAR HGB CONC 31 g/dL (32-36); MEAN CORPUSCULAR VOLUME 98 fL (80-99); MONOCYTES # (AUTO) 0.7 10^3/uL (0.0-1.0); MONOCYTES % (AUTO) 8 % (0-12); NEUTROPHILS # (AUTO) 6.8 10^3/uL (1.8-7.8); NEUTROPHILS % (AUTO) 75 % (42-75); PLATELET COUNT 134 10^3/uL (130-400); WHITE BLOOD COUNT 9.1 10^3/uL (4.3-11.0)
[2021-11-10 06:32] LABS: POTASSIUM 4.1 MMOL/L (3.6-5.0)
[2021-11-10 06:33] LABS: CALCIUM 8.9 MG/DL (8.5-10.1)
[2021-11-10 06:38] LABS: CREATININE SERUM 0.49 MG/DL (0.60-1.30)
[2021-11-10] MEDS: busPIRone 15 MG (BUSPAR) TABLET PO SCH ×2 (08:13→19:56)
[2021-11-10] MEDS: APIXABAN 5 MG (ELIQUIS) TABLET PO SCH ×2 (08:13→19:55)
[2021-11-10] MEDS: DOCUSATE SODIUM 100 MG (COLACE) CAP PO SCH ×2 (08:13→19:55)
[2021-11-10] MEDS: MEMANTINE 10 MG (NAMENDA) TABLET PO SCH (08:13)
[2021-11-10] MEDS: GABAPENTIN 600 MG (NEURONTIN) TAB PO SCH ×4 (08:13→19:55)
[2021-11-10] MEDS: clonazePAM 1 MG (KlonoPIN) TAB PO SCH ×2 (08:13→19:55)
[2021-11-10] MEDS: VENlafaxine 75 MG (EFFEXOR) TAB PO SCH (08:13)
[2021-11-10] MEDS: lamoTRIgine 25 MG (LaMICtal) TAB PO SCH ×2 (08:13→19:54)
[2021-11-10] MEDS ORDERED: KETOROLAC 30 MG/ML VIAL IVP ONE (08:45)
[2021-11-10] MEDS: ACETAMINOPHEN 500 MG TAB (TYLENOL) PO SCH ×4 (09:15→19:56)
[2021-11-10] MEDS: meTOproloL SUCCINATE 50 MG (TOPROL XL) TAB PO SCH (10:29)
[2021-11-10] MEDS: ISOSORBIDE MONONITRATE 30 MG (IMDUR) TAB PO SCH (10:29)
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
[2021-11-10] MEDS ORDERED: guaiFENesin (MUCINEX) 600 MG TAB PO ONE (13:45)
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
--- NOTE | 2021-11-10 15:01 | Diagnostic Imaging Report ---
INDICATION: Shortness of breath. COMPARISON: Prior examination from 11/08/2021. FINDINGS: Heart size is normal. There are bibasilar infiltrates and bilateral pleural effusions. There is no pneumothorax. The mediastinum is unremarkable. IMPRESSION: Bibasilar infiltrates and bilateral pleural effusions, left greater than right. Dictated by: Dictated on workstation # [id number]
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
[2021-11-10] MEDS: KETOROLAC 15 MG/ML VIAL IVP PRN ×2 (18:04→23:55)
[2021-11-10] MEDS ORDERED: NS (IVPB) 100 ML ONE (18:15)
[2021-11-10] MEDS ORDERED: PIPERACILLIN/TAZO 4.5 GM VIAL (ZOSYN) IV ONE (18:15)
[2021-11-10] MEDS: PIPERACILLIN SODIUM/TAZOBACTAM 4.5 GM in NS (IVPB) 100 ML IV SCH (18:24)
[2021-11-10] MEDS: ROSUVASTATIN 20 MG (CRESTOR) TABLET PO SCH (19:55)
[2021-11-10] MEDS: guaiFENesin (MUCINEX) 600 MG TAB PO SCH (19:55)
[2021-11-10] MEDS: traZODone 50 MG (DESYREL) TAB PO SCH (19:55)
[2021-11-10] MEDS: MONTELUKAST 10 MG (SINGULAIR) TAB PO SCH (19:56)
[2021-11-10] MEDS: rOPINIRole 1 MG (REQUIP) TABLET PO SCH (19:56)
[2021-11-10] MEDS: LATANOPROST 0.005% (XALATAN) OPHTH SOLN 2.5 ML OU SCH ×2 (19:58→21:20)
[2021-11-10] MEDS: FLUDROCORTISONE 0.1 MG (FLORINEF) TAB PO SCH (22:07)
[2021-11-10 22:36] VITALS: BP 95/56
[2021-11-10] MEDS ORDERED: RT-ALBUTEROL SULF 2.5 MG/3 ML PRE-MIX VIAL INH PRN (23:15)
[2021-11-11] MEDS: RT-ALBUTEROL SULF 2.5 MG/3 ML PRE-MIX VIAL INH SCH ×5 (02:17→22:18)
[2021-11-11] MEDS: PIPERACILLIN SODIUM/TAZOBACTAM 4.5 GM in NS (IVPB) 100 ML IV SCH (02:44)
[2021-11-11 04:52] LABS: BASOPHILS % (AUTO) 0 % (0-10); EOSINOPHILS # (AUTO) 0.2 10^3/uL (0.0-0.3); EOSINOPHILS % (AUTO) 2 % (0-10); HEMATOCRIT 34 % (35-52); HEMOGLOBIN 10.5 g/dL (11.5-16.0); LYMPHOCYTES # (AUTO) 1.1 10^3/uL (1.0-4.0); LYMPHOCYTES % (AUTO) 15 % (12-44); MEAN CORPUSCULAR HEMOGLOBIN 30 pg (25-34); MEAN CORPUSCULAR HGB CONC 31 g/dL (32-36); MEAN CORPUSCULAR VOLUME 97 fL (80-99); MEAN PLATELET VOLUME 10.3 fL (9.0-12.2); MONOCYTES # (AUTO) 0.6 10^3/uL (0.0-1.0); MONOCYTES % (AUTO) 8 % (0-12); NEUTROPHILS # (AUTO) 5.7 10^3/uL (1.8-7.8); NEUTROPHILS % (AUTO) 74 % (42-75); PLATELET COUNT 132 10^3/uL (130-400); WHITE BLOOD COUNT 7.6 10^3/uL (4.3-11.0)
[2021-11-11 05:03] LABS: POTASSIUM 4.6 MMOL/L (3.6-5.0)
[2021-11-11 05:05] LABS: CALCIUM 8.6 MG/DL (8.5-10.1)
[2021-11-11 05:09] LABS: CREATININE SERUM 0.59 MG/DL (0.60-1.30)
[2021-11-11] MEDS: CATHETER FLUSH 10 ML SYR IV SCH ×3 (06:14→22:01)
[2021-11-11] MEDS: ISOSORBIDE MONONITRATE 30 MG (IMDUR) TAB PO SCH (07:41)
[2021-11-11] MEDS: meTOproloL SUCCINATE 50 MG (TOPROL XL) TAB PO SCH (07:41)
[2021-11-11] MEDS: APIXABAN 5 MG (ELIQUIS) TABLET PO SCH ×2 (08:18→20:50)
[2021-11-11] MEDS: busPIRone 15 MG (BUSPAR) TABLET PO SCH ×2 (08:18→20:51)
[2021-11-11] MEDS: GABAPENTIN 600 MG (NEURONTIN) TAB PO SCH ×3 (08:18→20:51)
[2021-11-11] MEDS: clonazePAM 1 MG (KlonoPIN) TAB PO SCH ×2 (08:18→20:51)
[2021-11-11] MEDS: guaiFENesin (MUCINEX) 600 MG TAB PO SCH ×2 (08:18→20:50)
[2021-11-11] MEDS: ACETAMINOPHEN 500 MG TAB (TYLENOL) PO SCH ×3 (08:18→20:50)
[2021-11-11] MEDS: VENlafaxine 75 MG (EFFEXOR) TAB PO SCH (08:18)
[2021-11-11] MEDS: DOCUSATE SODIUM 100 MG (COLACE) CAP PO SCH ×2 (08:18→20:51)
[2021-11-11] MEDS: MEMANTINE 10 MG (NAMENDA) TABLET PO SCH (08:18)
[2021-11-11] MEDS: lamoTRIgine 25 MG (LaMICtal) TAB PO SCH ×2 (08:18→20:50)
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
[2021-11-11] MEDS: KETOROLAC 15 MG/ML VIAL IVP PRN ×2 (09:36→18:08)
[2021-11-11] MEDS: fentaNYL INJ 100 MCG/2 ML AMP IVP PRN (14:50)
[2021-11-11] MEDS ORDERED: FUROSEMIDE 40 MG/4 ML INJ (LASIX) IVP ONE (15:30)
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
[2021-11-11] MEDS ORDERED: CALCIUM CARBONATE 500 MG (TUMS) TAB.CHEW PO PRN (18:45)
[2021-11-11] MEDS: polyethylene glycoL POWDER 17 GM (MIRALAX) PACK PO SCH (20:50)
[2021-11-11] MEDS: traZODone 50 MG (DESYREL) TAB PO SCH (20:50)
[2021-11-11] MEDS: rOPINIRole 1 MG (REQUIP) TABLET PO SCH (20:51)
[2021-11-11] MEDS: ROSUVASTATIN 20 MG (CRESTOR) TABLET PO SCH (20:51)
[2021-11-11] MEDS: MONTELUKAST 10 MG (SINGULAIR) TAB PO SCH (20:51)
[2021-11-11] MEDS: LATANOPROST 0.005% (XALATAN) OPHTH SOLN 2.5 ML OU SCH (20:51)
[2021-11-12] MEDS: KETOROLAC 15 MG/ML VIAL IVP PRN ×4 (01:23→21:27)
[2021-11-12] MEDS: RT-ALBUTEROL SULF 2.5 MG/3 ML PRE-MIX VIAL INH SCH ×6 (03:03→21:58)
[2021-11-12] MEDS: CATHETER FLUSH 10 ML SYR IV SCH ×3 (05:05→22:09)
[2021-11-12 06:41] LABS: BASOPHILS % (AUTO) 1 % (0-10); EOSINOPHILS # (AUTO) 0.3 10^3/uL (0.0-0.3); EOSINOPHILS % (AUTO) 4 % (0-10); HEMATOCRIT 35 % (35-52); HEMOGLOBIN 11.2 g/dL (11.5-16.0); LYMPHOCYTES # (AUTO) 1.4 10^3/uL (1.0-4.0); LYMPHOCYTES % (AUTO) 22 % (12-44); MEAN CORPUSCULAR HEMOGLOBIN 31 pg (25-34); MEAN CORPUSCULAR HGB CONC 32 g/dL (32-36); MEAN CORPUSCULAR VOLUME 96 fL (80-99); MONOCYTES # (AUTO) 0.6 10^3/uL (0.0-1.0); MONOCYTES % (AUTO) 9 % (0-12); NEUTROPHILS % (AUTO) 64 % (42-75); PLATELET COUNT 141 10^3/uL (130-400); WHITE BLOOD COUNT 6.3 10^3/uL (4.3-11.0)
[2021-11-12 06:47] LABS: POTASSIUM 4.2 MMOL/L (3.6-5.0)
[2021-11-12 06:48] LABS: CALCIUM 9.1 MG/DL (8.5-10.1)
[2021-11-12 06:52] LABS: CREATININE SERUM 0.57 MG/DL (0.60-1.30)
--- NOTE | 2021-11-12 07:44 | Diagnostic Imaging Report ---
EXAMINATION: Chest 1 view HISTORY: Shortness of breath COMPARISON: 11/10/2021 FINDINGS: Heart size and pulmonary vasculature are stable. Decreasing size of the left pleural effusion with decreasing bibasilar interstitial and airspace opacities. No pneumothorax. The osseous structures are intact. Surgical changes of the cervical spine. IMPRESSION: 1. Decreasing left pleural effusion and bibasilar atelectasis or consolidation. Dictated by: Dictated on workstation # [id number]
[2021-11-12] MEDS: busPIRone 15 MG (BUSPAR) TABLET PO SCH ×2 (08:32→21:18)
[2021-11-12] MEDS: guaiFENesin (MUCINEX) 600 MG TAB PO SCH ×2 (08:32→21:18)
[2021-11-12] MEDS: DOCUSATE SODIUM 100 MG (COLACE) CAP PO SCH ×2 (08:32→21:18)
[2021-11-12] MEDS: VENlafaxine 75 MG (EFFEXOR) TAB PO SCH (08:32)
[2021-11-12] MEDS: GABAPENTIN 600 MG (NEURONTIN) TAB PO SCH ×3 (08:33→21:18)
[2021-11-12] MEDS: ISOSORBIDE MONONITRATE 30 MG (IMDUR) TAB PO SCH (08:33)
[2021-11-12] MEDS: APIXABAN 5 MG (ELIQUIS) TABLET PO SCH ×2 (08:33→21:18)
[2021-11-12] MEDS: MEMANTINE 10 MG (NAMENDA) TABLET PO SCH (08:33)
[2021-11-12] MEDS: meTOproloL SUCCINATE 50 MG (TOPROL XL) TAB PO SCH (08:33)
[2021-11-12] MEDS: ACETAMINOPHEN 500 MG TAB (TYLENOL) PO SCH ×3 (08:33→21:19)
[2021-11-12] MEDS: clonazePAM 1 MG (KlonoPIN) TAB PO SCH ×2 (08:33→21:18)
[2021-11-12] MEDS: lamoTRIgine 25 MG (LaMICtal) TAB PO SCH ×2 (08:33→21:18)
--- NOTE | 2021-11-12 10:13 | Physical Therapy Daily Note ---
PT Daily Note-Current Subjective Patient agrees to PT. Pain Numeric Pain Scale: 5-Moderate Pain Location: Medial Location Body Site: Chest Pain Description: Pressure, Acute Mental Status Patient Orientation: Normal For Age Attachments: Colostomy/Ileostomy, Oxygen Transfers SCALE: Activities may be completed with or without assistive devices. 7-Hueskgkgaz-jhqerey completes the activity by him/herself with no assistance from a helper. 5-Set-up or Clean-up Assistance-helper sets up or cleans up; patient completes activity. [place] assists only prior to or following the activity. 4-Supervision or Touching Assistance-helper provides verbal cues and/or touching/steadying and/or contact guard assistance as patient completes activity. Assistance may be provided throughout the activity or intermittently. 3-Partial/Moderate Assistance-helper does LESS THAN HALF the effort. [place] lifts, holds or supports trunk or limbs, but provides less than half the effort. 2-Substantial/Maximal Assistance-helper does MORE THAN HALF the effort. [place] lifts or holds trunk or limbs and provides more than half the effort. 8-Cqpefvpbb-pghnui does ALL the effort. Patient does none of the effort to complete the activity. Or, the assistance of 2 or more helpers is required for the patient to complete the activity. If activity was not attempted, code reason: 7-Patient Refused. 9-Not Applicable-not attempted and the patient did not perform the activity before the current illness, exacerbation or injury. 10-Not Attempted due to Environmental Limitations-(lack of equipment, weather restraints, etc.). 88-Not Attempted due to Medical Conditions or Safety Concerns. Lying to Sitting/Side of Bed(Q: 4 Sit to Stand (QC): 4 Chair/Gwq-ru-Vsbml Xfer(QC): 4 Gait Training Distance: 200' Walk 10 feet (QC): 4 Walk 50 ft with 2 Turns(QC): 4 Walk 150 ft (QC): 4 Gait Assistive Device: Walker Edwin CGA for safety/functional gait sequence Assessment Patient tolerated treatment well and is up in recliner with needs met. PT educated patient on utilizing pillow to hug and cough. Patient demonstrates technique appropriately. PT Nursing Home Goals Nursing Home Goals PT Nursing Home Goals Time Frame: Nov 17, 2021 Roll Left & Right (QC): 4 Sit to Lying (QC): 4 Lying-Sitting on Side/Bed(QC): 4 Sit to Stand (QC): 4 Chair/Hyo-xf-Wzqjn Xfer(QC): 4 Walk 10 feet (QC): 4 Walk 50ft with 2 Turns (QC): 4 PT Plan Treatment/Plan Treatment Plan: Continue Plan of Care Treatment Plan: Bed Mobility, Education, Functional Activity Allison, Functional Strength, Gait, Safety, Therapeutic Exercise, Transfers Treatment Duration: Nov 17, 2021 Frequency: 6 times per week Estimated Hrs Per Day: .25 hour per day Patient and/or Family Agrees t: Yes Time/GCodes Time In: 906 Time Out: 924 Total Billed Treatment Time: 18 Total Billed Treatment 1 visit FA 18 min ZOYA HANNON PT Nov 12, 2021 10:13
[2021-11-12] MEDS: ONDANSETRON 4 MG/2 ML (SDV) Z0FRAN IVP PRN ×2 (10:37→21:26)
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
[2021-11-12] MEDS: rOPINIRole 1 MG (REQUIP) TABLET PO SCH (21:17)
[2021-11-12] MEDS: ROSUVASTATIN 20 MG (CRESTOR) TABLET PO SCH (21:18)
[2021-11-12] MEDS: MONTELUKAST 10 MG (SINGULAIR) TAB PO SCH (21:18)
[2021-11-12] MEDS: LATANOPROST 0.005% (XALATAN) OPHTH SOLN 2.5 ML OU SCH (21:19)
[2021-11-12] MEDS: polyethylene glycoL POWDER 17 GM (MIRALAX) PACK PO SCH (21:20)
[2021-11-12] MEDS: traZODone 50 MG (DESYREL) TAB PO SCH (22:09)
[2021-11-12] MEDS: FLUDROCORTISONE 0.1 MG (FLORINEF) TAB PO SCH (22:10)
[2021-11-13] MEDS: RT-ALBUTEROL SULF 2.5 MG/3 ML PRE-MIX VIAL INH SCH ×5 (02:10→18:49)
[2021-11-13] MEDS: ONDANSETRON 4 MG/2 ML (SDV) Z0FRAN IVP PRN ×3 (03:51→14:34)
[2021-11-13] MEDS: CATHETER FLUSH 10 ML SYR IV SCH ×3 (03:51→20:32)
[2021-11-13] MEDS: KETOROLAC 15 MG/ML VIAL IVP PRN ×4 (03:52→23:30)
[2021-11-13 05:13] LABS: BASOPHILS % (AUTO) 0 % (0-10); EOSINOPHILS # (AUTO) 0.3 10^3/uL (0.0-0.3); EOSINOPHILS % (AUTO) 6 % (0-10); HEMATOCRIT 34 % (35-52); HEMOGLOBIN 10.7 g/dL (11.5-16.0); LYMPHOCYTES # (AUTO) 1.2 10^3/uL (1.0-4.0); LYMPHOCYTES % (AUTO) 25 % (12-44); MEAN CORPUSCULAR HEMOGLOBIN 30 pg (25-34); MEAN CORPUSCULAR HGB CONC 31 g/dL (32-36); MEAN CORPUSCULAR VOLUME 98 fL (80-99); MONOCYTES # (AUTO) 0.4 10^3/uL (0.0-1.0); MONOCYTES % (AUTO) 8 % (0-12); NEUTROPHILS # (AUTO) 2.9 10^3/uL (1.8-7.8); NEUTROPHILS % (AUTO) 60 % (42-75); PLATELET COUNT 164 10^3/uL (130-400); WHITE BLOOD COUNT 4.9 10^3/uL (4.3-11.0)
[2021-11-13 05:24] LABS: POTASSIUM 4.6 MMOL/L (3.6-5.0)
[2021-11-13 05:25] LABS: CALCIUM 9.2 MG/DL (8.5-10.1)
[2021-11-13 05:30] LABS: CREATININE SERUM 0.61 MG/DL (0.60-1.30)
[2021-11-13] MEDS: ACETAMINOPHEN 500 MG TAB (TYLENOL) PO SCH ×3 (08:19→20:32)
[2021-11-13] MEDS: meTOproloL SUCCINATE 50 MG (TOPROL XL) TAB PO SCH (08:20)
[2021-11-13] MEDS: MEMANTINE 10 MG (NAMENDA) TABLET PO SCH (08:20)
[2021-11-13] MEDS: clonazePAM 1 MG (KlonoPIN) TAB PO SCH ×2 (08:20→20:31)
[2021-11-13] MEDS: guaiFENesin (MUCINEX) 600 MG TAB PO SCH ×2 (08:20→20:31)
[2021-11-13] MEDS: ISOSORBIDE MONONITRATE 30 MG (IMDUR) TAB PO SCH (08:20)
[2021-11-13] MEDS: VENlafaxine 75 MG (EFFEXOR) TAB PO SCH (08:20)
[2021-11-13] MEDS: GABAPENTIN 600 MG (NEURONTIN) TAB PO SCH ×3 (08:20→20:31)
[2021-11-13] MEDS: busPIRone 15 MG (BUSPAR) TABLET PO SCH ×2 (08:20→20:31)
[2021-11-13] MEDS: DOCUSATE SODIUM 100 MG (COLACE) CAP PO SCH ×2 (08:21→20:32)
[2021-11-13] MEDS: APIXABAN 5 MG (ELIQUIS) TABLET PO SCH ×2 (08:21→20:31)
[2021-11-13] MEDS: lamoTRIgine 25 MG (LaMICtal) TAB PO SCH ×2 (08:21→20:31)
[2021-11-13 10:54] VITALS: BP 100/58
--- NOTE | 2021-11-13 11:27 | Physical Therapy Daily Note ---
PT Daily Note-Current Subjective Patient reluctantly agrees to PT. Patient c/o 9/10 sternal pain. RN notified. Pain Numeric Pain Scale: 9 Location: Medial Location Body Site: Chest Mental Status Patient Orientation: Normal For Age Attachments: Oxygen, Drains (renal catheter) Transfers SCALE: Activities may be completed with or without assistive devices. 7-Oshvabxuuf-iwnklop completes the activity by him/herself with no assistance from a helper. 5-Set-up or Clean-up Assistance-helper sets up or cleans up; patient completes activity. [place] assists only prior to or following the activity. 4-Supervision or Touching Assistance-helper provides verbal cues and/or to uching/steadying and/or contact guard assistance as patient completes activity. Assistance may be provided throughout the activity or intermittently. 3-Partial/Moderate Assistance-helper does LESS THAN HALF the effort. [place] lifts, holds or supports trunk or limbs, but provides less than half the effort. 2-Substantial/Maximal Assistance-helper does MORE THAN HALF the effort. [place] lifts or holds trunk or limbs and provides more than half the effort. 4-Bgbpjgcii-ucamzi does ALL the effort. Patient does none of the effort to complete the activity. Or, the assistance of 2 or more helpers is required for the patient to complete the activity. If activity was not attempted, code reason: 7-Patient Refused. 9-Not Applicable-not attempted and the patient did not perform the activity before the current illness, exacerbation or injury. 10-Not Attempted due to Environmental Limitations-(lack of equipment, weather restraints, etc.). 88-Not Attempted due to Medical Conditions or Safety Concerns. Lying to Sitting/Side of Bed(Q: 6 Sit to Stand (QC): 4 Chair/Sxw-jn-Eobpp Xfer(QC): 4 Gait Training Distance: 200' Walk 10 feet (QC): 4 Walk 50 ft with 2 Turns(QC): 4 Walk 150 ft (QC): 4 Gait Assistive Device: Walker Edwin very slow, step to gait sequence with noted SOA with activity with SAO2 94% on 4L with activity Assessment Patient up in recliner with needs met. Patient requires CGA for safety with mobility. Patient has increase c/o sternal pain on this date. Noted increase SOA with activity on 4L NC. PT Veneer Repairer Machine Goals Veneer Repairer Machine Goals PT Group Home Goals Time Frame: Nov 17, 2021 Roll Left & Right (QC): 4 Sit to Lying (QC): 4 Lying-Sitting on Side/Bed(QC): 4 Sit to Stand (QC): 4 Chair/Ugu-ul-Uwwxk Xfer(QC): 4 Walk 10 feet (QC): 4 Walk 50ft with 2 Turns (QC): 4 PT Plan Treatment/Plan Treatment Plan: Continue Plan of Care Treatment Plan: Bed Mobility, Education, Functional Activity Allison, Functional Strength, Gait, Safety, Therapeutic Exercise, Transfers Treatment Duration: Nov 17, 2021 Frequency: 6 times per week Estimated Hrs Per Day: .25 hour per day Patient and/or Family Agrees t: Yes Time/GCodes Time In: 1036 Time Out: 1055 Total Billed Treatment Time: 19 Total Billed Treatment 1 visit GT 19 min ZOYA HANNON PT Nov 13, 2021 11:27
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
[2021-11-13] MEDS: LIDOCAINE 4% (SALONPAS) PATCH TOP SCH (18:29)
[2021-11-13] MEDS: ROSUVASTATIN 20 MG (CRESTOR) TABLET PO SCH (20:30)
[2021-11-13] MEDS: traZODone 50 MG (DESYREL) TAB PO SCH (20:31)
[2021-11-13] MEDS: rOPINIRole 1 MG (REQUIP) TABLET PO SCH (20:31)
[2021-11-13] MEDS: MONTELUKAST 10 MG (SINGULAIR) TAB PO SCH (20:31)
[2021-11-13] MEDS: polyethylene glycoL POWDER 17 GM (MIRALAX) PACK PO SCH (20:32)
[2021-11-13] MEDS: LATANOPROST 0.005% (XALATAN) OPHTH SOLN 2.5 ML OU SCH (20:33)
[2021-11-13] MEDS ORDERED: LIDOCAINE PATCH REMOVAL TP SCH (21:00)
[2021-11-14] MEDS: CATHETER FLUSH 10 ML SYR IV SCH ×2 (05:29→11:30)
[2021-11-14] MEDS: KETOROLAC 15 MG/ML VIAL IVP PRN ×2 (05:29→11:11)
[2021-11-14 06:36] LABS: BASOPHILS % (AUTO) 1 % (0-10); EOSINOPHILS # (AUTO) 0.4 10^3/uL (0.0-0.3); EOSINOPHILS % (AUTO) 7 % (0-10); HEMATOCRIT 36 % (35-52); HEMOGLOBIN 11.2 g/dL (11.5-16.0); LYMPHOCYTES # (AUTO) 1.5 10^3/uL (1.0-4.0); LYMPHOCYTES % (AUTO) 31 % (12-44); MEAN CORPUSCULAR HEMOGLOBIN 30 pg (25-34); MEAN CORPUSCULAR HGB CONC 31 g/dL (32-36); MEAN CORPUSCULAR VOLUME 96 fL (80-99); MEAN PLATELET VOLUME 10.2 fL (9.0-12.2); MONOCYTES # (AUTO) 0.5 10^3/uL (0.0-1.0); MONOCYTES % (AUTO) 9 % (0-12); NEUTROPHILS # (AUTO) 2.5 10^3/uL (1.8-7.8); NEUTROPHILS % (AUTO) 52 % (42-75); PLATELET COUNT 152 10^3/uL (130-400); WHITE BLOOD COUNT 4.9 10^3/uL (4.3-11.0)
[2021-11-14 06:42] LABS: POTASSIUM 4.6 MMOL/L (3.6-5.0)
[2021-11-14 06:43] LABS: CALCIUM 9.4 MG/DL (8.5-10.1)
[2021-11-14 06:47] LABS: CREATININE SERUM 0.58 MG/DL (0.60-1.30)
[2021-11-14] MEDS: RT-ALBUTEROL SULF 2.5 MG/3 ML PRE-MIX VIAL INH SCH ×2 (07:13→10:26)
[2021-11-14] MEDS: busPIRone 15 MG (BUSPAR) TABLET PO SCH (08:54)
[2021-11-14] MEDS: DOCUSATE SODIUM 100 MG (COLACE) CAP PO SCH (08:55)
[2021-11-14] MEDS: APIXABAN 5 MG (ELIQUIS) TABLET PO SCH (08:55)
[2021-11-14] MEDS: MEMANTINE 10 MG (NAMENDA) TABLET PO SCH (08:55)
[2021-11-14] MEDS: ISOSORBIDE MONONITRATE 30 MG (IMDUR) TAB PO SCH (08:55)
[2021-11-14] MEDS: VENlafaxine 75 MG (EFFEXOR) TAB PO SCH (08:55)
[2021-11-14] MEDS: clonazePAM 1 MG (KlonoPIN) TAB PO SCH (08:55)
[2021-11-14] MEDS: guaiFENesin (MUCINEX) 600 MG TAB PO SCH (08:55)
[2021-11-14] MEDS: lamoTRIgine 25 MG (LaMICtal) TAB PO SCH (08:55)
[2021-11-14] MEDS: GABAPENTIN 600 MG (NEURONTIN) TAB PO SCH ×2 (08:56→13:36)
[2021-11-14] MEDS: meTOproloL SUCCINATE 50 MG (TOPROL XL) TAB PO SCH (08:56)
[2021-11-14] MEDS: ACETAMINOPHEN 500 MG TAB (TYLENOL) PO SCH ×2 (08:57→13:36)
[2021-11-14] MEDS: LIDOCAINE 4% (SALONPAS) PATCH TOP SCH (08:57)
[2021-11-14] MEDS: ONDANSETRON 4 MG/2 ML (SDV) Z0FRAN IVP PRN (13:33)
--- NOTE | 2021-11-14 13:51 | Occupational Ther Daily Note ---
OT Current Status-Daily Note Subjective Pt reports pain in sternum, no numerical value given. C/o nausea, requests Zofran. RN notified. Appearance Pt left sitting in recliner, all needs within reach at therapy departure. Mental Status/Objective Patient Orientation: Person, Place, Situation Attachments: Crain Catheter, IV, Oxygen, Telemetry ADL-Treatment Therapy Code Descriptions/Definitions Functional [place] Measure: 0=Not Assessed/NA 4=Minimal Assistance 1=Total Assistance 5=Supervision or Setup 2=Maximal Assistance 6=Modified [place] 3=Moderate Assistance 7=Complete IndependenceSCALE: Activities may be completed with or without assistive devices. 6-Frihbwutjp-mdijpjv completes the activity by him/herself with no assistance from a helper. 5-Set-up or Clean-up Assistance-helper sets up or cleans up; patient completes activity. [place] assists only prior to or following the activity. 4-Supervision or Touching Assistance-helper provides verbal cues and/or touching/steadying and/or contact guard assistance as patient completes a ctivity. Assistance may be provided throughout the activity or intermittently. 3-Partial/Moderate Assistance-helper does LESS THAN HALF the effort. [place] lifts, holds or supports trunk or limbs, but provides less than half the effort. 2-Substantial/Maximal Assistance-helper does MORE THAN HALF the effort. [place] lifts or holds trunk or limbs and provides more than half the effort. 4-Afxryhcci-ljudbw does ALL the effort. Patient does none of the effort to complete the activity. Or, the assistance of 2 or more helpers is required for the patient to complete the activity. If activity was not attempted, code reason: 7-Patient Refused. 9-Not Applicable-not attempted and the patient did not perform the activity before the current illness, exacerbation or injury. 10-Not Attempted due to Environmental Limitations-(lack of equipment, weather restraints, etc.). 88-Not Attempted due to Medical Conditions or Safety Concerns. Eating (QC): 4 Pt supine in bed at therapy arrival, lunch tray had just arrived. Pt agreeable to transfer to chair to eat meal. Able to sit EOB with SBA, Slightly impulsive. She transferred to chair (~6 feet) without any AD, no LOB. R hand/wrist (dominate hand) in splint and Left hand has no active wrist movement secondary to metal plate in hand/wrist. OT donned universal cuff over RUE splint. With AE, she was able to demonstrate ability to feed self with improved ease. Pt reports she will need assistance with ordering equipment if needed. OT will also attempt to place a built up handle around splint later today if schedule allows. This will decrease pt's need to have to purchase out of pocket. Education OT Patient Education: Correct positioning, Progress toward Goal/Update tx plan, Purpose of tx/functional activities, Use of adapted equipment Teaching Recipient: Patient Teaching Methods: Demonstration, Discussion Response to Teaching: Verbalize Understanding, Return Demonstration OT Online Services Manager Goals Online Services Manager Goals Time Frame: Nov 23, 2021 Eating (QC): 5 Oral Hygiene (QC): 4 Toileting Hygiene (QC): 4 Shower/Bathe Self (QC): 4 Upper Body Dressing (QC): 4 Lower Body Dressing (QC): 4 On/Off Footwear (QC): 4 1=Demonstrate adherence to instructed precautions during ADL tasks. 2=Patient will verbalize/demonstrate understanding of assistive devices/modifications for ADL. 3=Patient will improve strength/tolerance for activity to enable patient to perform ADL's. OT Education/Plan Problem List/Assessment Assessment: Decreased Activ Tolerance, Decreased Safety Aware, Decreased UE Strength, Impaired Funct Balance, Impaired I ADL's, Impaired Self-Care Skills, Restricted Funct UE ROM Discharge Recommendations Plan/Recommendations: Continue POC Therapy Discharge Recommendati: Post Acute OT Treatment Plan/Plan of Care Treatment,Training & Education: Yes Patient would benefit from OT for education, treatment and training to promote independence in ADL's, mobility, safety and/or upper extremity function for ADL's. Plan of Care: ADL Retraining, Functional Mobility, Group Exercise/Act as Ind, Orthotic Fitting/Training, UE Funct Exercise/Act Treatment Duration: Nov 23, 2021 Frequency: 3 times per week (3-5x/week) Estimated Hrs Per Day: .25 hour per day Agreement: Yes Rehab Potential: Fair Time/GCodes Start Time: 13:07 Stop Time: 13:22 Total Time Billed (hr/min): 15 Billed Treatment Time 1 visit ADL Reyna Murillo OT Nov 14, 2021 13:51
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
[2021-11-14] MEDS ORDERED: OXYC1TAB16 PO (14:33)
--- NOTE | 2021-11-14 14:34 | Discharge Inst-Surgical ---
D/C Lap Instructions-ESTER New, Converted, or Re-Newed RX: RX on Chart Follow Up Appt in 1 week Resume previous home O2 settings. no heavy lifting/exertion for 6 weeks. Activity as tolerated No driving for 24 hours No driving while on pain medications Incentive Spirometry use every 2 hours while awake Regular Diet Symptoms to Report: Fever over 101 degree F, Nausea/Vomiting Infection Signs and Symptoms to report: Increased redness, Foul odor of wound, Increased drainage Bathing instructions: May shower Operative Area Clean/Dry; Keep incision clean/dry If any problems/questions: Contact your physician or go to Emergency Room PETAR NORMAN MD Nov 14, 2021 14:34
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
[2021-11-14 15:30] VITALS: BP 99/61
[2021-11-15] MEDS ORDERED: CEPH500T PO (15:28)
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
== END 2021-11-14 15:30 | disposition home health service (06) ==
LOC: EDUNIT# 10:21 → ER 10:25 → UNDOADMOB 15:46 → ICU 15:46 → 4TH 11-09 13:59 → ICU 11-09 13:59 → UNDODISOB 11-14 15:30
PROVIDERS: ADMIT Surgery; ATTEND Surgery
DX: S06.0X1A Concussion with loss of consciousness of 30 minutes or less, initial encounter (principal); S62.396A Other fracture of fifth metacarpal bone, right hand, initial encounter for closed fracture; S22.20XA Unspecified fracture of sternum, initial encounter for closed fracture; S27.321A Contusion of lung, unilateral, initial encounter; S61.411A Laceration without foreign body of right hand, initial encounter; R55 Syncope and collapse; J96.11 Chronic respiratory failure with hypoxia; J44.9 Chronic obstructive pulmonary disease, unspecified; I48.91 Unspecified atrial fibrillation; I25.10 Atherosclerotic heart disease of native coronary artery without angina pectoris; I10 Essential (primary) hypertension; E11.9 Type 2 diabetes mellitus without complications; G25.81 Restless legs syndrome; F41.9 Anxiety disorder, unspecified; F32.A Depression, unspecified; K21.9 Gastro-esophageal reflux disease without esophagitis; M81.0 Age-related osteoporosis without current pathological fracture; E78.2 Mixed hyperlipidemia; F03.90 Unspecified dementia, unspecified severity, without behavioral disturbance, psychotic disturbance, mood disturbance, and anxiety; I51.89 Other ill-defined heart diseases; K59.00 Constipation, unspecified; Z99.81 Dependence on supplemental oxygen; Z87.891 Personal history of nicotine dependence; Z85.51 Personal history of malignant neoplasm of bladder; Z93.2 Ileostomy status; Z79.01 Long term (current) use of anticoagulants; Z79.52 Long term (current) use of systemic steroids; Z88.6 Allergy status to analgesic agent; Z88.1 Allergy status to other antibiotic agents; Z88.5 Allergy status to narcotic agent; Z83.3 Family history of diabetes mellitus; Z82.5 Family history of asthma and other chronic lower respiratory diseases; Z82.49 Family history of ischemic heart disease and other diseases of the circulatory system; Z23 Encounter for immunization; Z86.73 Personal history of transient ischemic attack (TIA), and cerebral infarction without residual deficits; V43.52XA Car driver injured in collision with other type car in traffic accident, initial encounter
CPT/HCPCS: 36415; 70450; 71045; 71260; 72125; 73130; 74177; 80048; 80076; 80320; 81000; 84145; 84484; 84703; 85025; 85027; 87077; 87081; 87088; 87186; 90471; 90715; 93005; 93041; 93306; 94640; 94664; 94760; 96361; 96366; 96374; 96375; 96376; 99291; G0378

== ENCOUNTER 2021-11-15 12:09 | Emergency (ER) | payer OTHER, MEDICARE, MEDICAID ==
[~2021-11-15] VITALS: Ht 162 cm; Wt 68.0 kg
[~2021-11-15 12:09] MED LIST changes: +ASCO500T17 PO; +BUSP15TA60 PO; +COLE3.75 PO; -COLE625T30 PO; +COLE625T9 PO; +DILT90TA PO; +ISOS30TA82 PO; +LATA2.5D19 OU; -LEVO750T PO; +LEVO750T39 PO; +MAGN400T39 PO; +MELO15TA39 PO; +NICO10CA NS; +NITR0.4T42 SL; +NYST15CR TP; -NYST15CR35 TP; +OXYC1TAB16 PO; +POTA99TA26 PO; +PYRI50CA PO; +ROSU20TA32 PO; +SUVO10TA2 PO; -[UNRECOGNIZED DRUG - CODE] PO
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
[2021-11-15 13:38] LABS: BASOPHILS % (AUTO) 1 % (0-10); EOSINOPHILS # (AUTO) 0.3 10^3/uL (0.0-0.3); EOSINOPHILS % (AUTO) 6 % (0-10); HEMATOCRIT 37 % (35-52); HEMOGLOBIN 11.8 g/dL (11.5-16.0); LYMPHOCYTES # (AUTO) 1.5 10^3/uL (1.0-4.0); LYMPHOCYTES % (AUTO) 27 % (12-44); MEAN CORPUSCULAR HEMOGLOBIN 30 pg (25-34); MEAN CORPUSCULAR HGB CONC 32 g/dL (32-36); MEAN CORPUSCULAR VOLUME 95 fL (80-99); MEAN PLATELET VOLUME 9.6 fL (9.0-12.2); MONOCYTES # (AUTO) 0.6 10^3/uL (0.0-1.0); MONOCYTES % (AUTO) 10 % (0-12); NEUTROPHILS # (AUTO) 3.2 10^3/uL (1.8-7.8); NEUTROPHILS % (AUTO) 56 % (42-75); PLATELET COUNT 170 10^3/uL (130-400); WHITE BLOOD COUNT 5.6 10^3/uL (4.3-11.0)
[2021-11-15 13:49] LABS: INR 0.9 (0.8-1.4); PROTHROMBIN TIME PATIENT 12.4 SEC (12.2-14.7)
--- NOTE | 2021-11-15 13:56 | Diagnostic Imaging Report ---
INDICATION: Chest pain and shortness of breath. TECHNIQUE: Frontal chest obtained at 01:46 p.m. and compared to 11/12/2021. FINDINGS: There is cardiomegaly. There is mild central vascular prominence with some right basilar atelectasis. There is no consolidation or pneumothorax or pleural fluid. IMPRESSION: Cardiomegaly with mild central vascular prominence. There is improving right basilar atelectatic change. There is no new consolidation or pleural fluid. Dictated by: Dictated on workstation # [id number]
[2021-11-15 13:58] LABS: ALBUMIN 3.7 GM/DL (3.2-4.5); BILIRUBIN,TOTAL 0.3 MG/DL (0.1-1.0); CALCIUM 9.6 MG/DL (8.5-10.1); CREATININE SERUM 0.59 MG/DL (0.60-1.30); MAGNESIUM 2.1 MG/DL (1.6-2.4); POTASSIUM 4.3 MMOL/L (3.6-5.0); TOTAL PROTEIN 6.4 GM/DL (6.4-8.2)
[2021-11-15] MEDS ORDERED: fentaNYL INJ 100 MCG/2 ML AMP IVP STA (14:26)
[2021-11-15] MEDS ORDERED: ONDANSETRON 4 MG/2 ML (SDV) Z0FRAN IVP ONE (15:15)
[2021-11-15] MEDS ORDERED: CEPH500T PO (15:28)
[2021-11-15] MEDS ORDERED: CEPHALEXIN 250 MG (KEFLEX) CAP PO ONE (15:30)
[2021-11-15 15:31] VITALS: BP 125/81
== END 2021-11-15 15:31 | disposition home or self-care (01) ==
LOC: EDUNIT# 12:09 → ER 12:11
DX: R07.89 Other chest pain (principal); M54.2 Cervicalgia; M79.641 Pain in right hand; Z87.81 Personal history of (healed) traumatic fracture; Z97.8 Presence of other specified devices; Z87.828 Personal history of other (healed) physical injury and trauma; Z88.5 Allergy status to narcotic agent; Z88.6 Allergy status to analgesic agent; Z88.2 Allergy status to sulfonamides
CPT/HCPCS: 36415; 71045; 80053; 83735; 83874; 83880; 84484; 85025; 85610; 85730; 93005; 93041

== ENCOUNTER → 2021-11-22 | Outpatient (CLI) | payer MEDICARE, MEDICAID ==
[~2021-11-22] VITALS: Ht 163 cm; Wt 68.2 kg
[~2021-11-22] MED LIST changes: +CEPH500T PO
== END | disposition home or self-care (01) ==
LOC: PREOP 11:46
PROVIDERS: ATTEND Surgery
DX: Z01.818 Encounter for other preprocedural examination (principal); K21.9 Gastro-esophageal reflux disease without esophagitis; K22.2 Esophageal obstruction

== ENCOUNTER 2021-11-28 11:06 | Day surgery (SDC) | payer MEDICARE, MEDICAID ==
[~2021-11-28] VITALS: Ht 160 cm; Wt 68.2 kg
[2021-11-28 11:25] VITALS: BP 115/64
[2021-11-28] MEDS ORDERED: LACTATED RINGERS 1,000 ML IV STA (11:25)
[2021-11-28] MEDS ORDERED: LIDOCAINE JELLY 2% 6 ML SYRINGE MM PRN (11:30)
[2021-11-28] MEDS ORDERED: HURRICAINE EXT TUBE (BENZOCAINE) XX PRN (11:30)
[2021-11-28] MEDS ORDERED: LACTATED RINGERS 1,000 ML IV ONE (11:42)
[2021-11-28] MEDS ORDERED: fentaNYL INJ 100 MCG/2 ML AMP ONE (12:09)
[2021-11-28] MEDS ORDERED: MIDAZOLAM 2 MG/2 ML (VERSED) VIAL IM ONE ×2 (12:15→13:45)
[2021-11-28] MEDS ORDERED: fentaNYL INJ 100 MCG/2 ML AMP IVP ONE (12:15)
--- NOTE | 2021-11-28 13:00 | Progress Note-Pre Operative ---
Pre-Operative Progress Note Date of Available H&P: Nov 28, 2021 Date H&P Reviewed: Nov 28, 2021 Time H&P Reviewed: 12:30 History & Physical: No changes noted Pre-Operative Diagnosis: dysphagia, GERD PETAR NORMAN MD Nov 28, 2021 13:00
--- NOTE | 2021-11-28 13:01 | Discharge Inst-Surgical ---
D/C Lap Instructions-ESTER Follow Up Activity as tolerated High Fiber Diet 25g or more per day Avoid Alcohol, Caffeine, Spicy [place] and Acid foods. Drink 64 fluid oz or more of fluids per day. Symptoms to Report: Fever over 101 degree F, Nausea/Vomiting If any problems/questions: Contact your physician or go to Emergency Room PETAR NORMAN MD Nov 28, 2021 13:01
[2021-11-28] MEDS ORDERED: proPOfol 200 MG/20 ML (DIPRIVAN) VIAL IV ONE (14:07)
[2021-11-28 14:25] VITALS: BP 105/64
--- NOTE | 2021-11-28 14:36 | Anesthesia-General Post-Op ---
MAC Patient Condition Mental Status/LOC: Same as Preop Cardiovascular: Satisfactory Nausea/Vomiting: Absent Respiratory: Satisfactory Pain: Controlled Complications: Absent Post Op Complications Complications None Follow Up Care/Instructions Patient Instructions None needed. Anesthesiology Discharge Order Discharge Order Patient is doing well, no complaints, stable vital signs, no apparent adverse anesthesia problems. No complications reported per nursing. MERI ESPINOSA CRNA Nov 28, 2021 14:36
--- NOTE | 2021-11-28 14:45 | Progress Note-Post Operative ---
Post-Operative Progess Note Surgeon (s)/Roof Fitter (s) Surgeon PETAR NORMAN MD Roof Fitter: none Pre-Operative Diagnosis dysphagia, GERD Post-Operative Diagnosis reflux esophagitis(grade B), mild distal esoph stricture, small recurrent HH(2cm), moderate gastritis, no dist obstructions. Procedure & Operative Findings Date of Procedure 11/28/21 Procedure Performed/Findings EGD with bx and balloon dilatation. Anesthesia Type mac Estimated Blood Loss Estimated blood loss (mL): minimal Specimens/Packing Specimens Removed ge jxn, antrum PETAR NORMAN MD Nov 28, 2021 14:45
[2021-11-28 14:50] VITALS: BP 118/83
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
== END 2021-11-28 14:50 | disposition home or self-care (01) ==
LOC: ENDO 11:06
PROVIDERS: ATTEND Surgery
DX: K21.00 Gastro-esophageal reflux disease with esophagitis, without bleeding (principal); K22.2 Esophageal obstruction; K44.9 Diaphragmatic hernia without obstruction or gangrene; K29.70 Gastritis, unspecified, without bleeding; Z79.899 Other long term (current) drug therapy; Z87.891 Personal history of nicotine dependence; J44.9 Chronic obstructive pulmonary disease, unspecified; Z99.81 Dependence on supplemental oxygen

== ENCOUNTER 2022-02-10 11:56 | Emergency (ER) | payer MEDICARE, MEDICAID ==
[~2022-02-10 11:56] MED LIST changes: +BISA5TAB20 PO; -BISA5TAB8 PO; -COLE3.75 PO; +COLE625T30 PO; -COLE625T9 PO; +LEVO750T PO; -LEVO750T39 PO; -NYST15CR TP; +NYST15CR35 TP; +[UNRECOGNIZED DRUG - CODE] PO
--- NOTE | 2022-02-10 12:43 | ED General ---
General Chief Complaint: Cough/Cold/Flu Symptoms Stated Complaint: DIZZY/COUGH/UTI SYMPTOMS Nursing Triage Note: PT TO TRIAGE FOR C/O SOB, COUGH, UTI SYMPTOMS THAT ALL STARTED YESTERDAY. PT STATES SHE HAS FELT WEAKER TODAY ALSO Source of Information: Patient Exam Limitations: No Limitations History of Present Illness Date Seen by Provider: Feb 10, 2022 Time Seen by Provider: 12:30 Initial Comments Patient is a 66-year-old female with a history of hypertension, COPD, bladder cancer status post ileostomy. She presents today with concern for urinary tract infection due to left flank pain as well as "itching" around her ostomy site and noting a little blood in her urine yesterday. She is being worked up through [facility] with multiple studies pending, she is not really sure why. She recently had a hospitalization 2 weeks ago at [facility] in [place] for pneumonia. She states she finished some antibiotics as an outpatient and today just started feeling "bad" again. She is out of her chronic Percocet. She denies nausea or vomiting. She complains of a cough. She is not really short of breath. She is concerned about her potassium level being "high". She did present without wearing her normal 4 L of oxygen per nasal cannula. She continues to smoke "1 cigarette" daily. Normal bowel movements, nonblack nonbloody. No swelling in her legs. SHe did initially present to [facility] walk in and was sent here for further evaluation. Generally does not appear in any great amount of distress. Vital signs are stable. All other review of systems reviewed and negative except as stated. Timing/Duration: 4-6 Hours Severity: Moderate Associated Systoms: Chest Pain (from broken ribs), Cough, Malaise, Weakness, Other (blood in ileostomy; balance issues) Allergies and Home Medications Allergies Coded Allergies: bacitracin (Verified Allergy, Intermediate, "I BREAK OUT IN A RASH ALL OVER.", 02/10/22) neomycin (Verified Allergy, Intermediate, "I BREAK OUT IN A RASH ALL O LUCY.", 02/10/22) polymyxin B (Verified Allergy, Intermediate, "I BREAK OUT IN A RASH ALL OVER.", 02/10/22) ibuprofen (Verified Allergy, Mild, RASH, 02/10/22) naproxen (Verified Allergy, Mild, RASH, 02/10/22) strawberry (Verified Allergy, Mild, 02/10/22) sulfamethoxazole (Unverified Allergy, Unknown, 02/10/22) tramadol (Verified Allergy, Unknown, 02/10/22) trimethoprim (Unverified Allergy, Unknown, 02/10/22) Patient Home Medication List Home Medication List Reviewed: Yes Albuterol Sulfate (Ventolin Hfa) 18 Gm Hfa.aer.ad, 2 PUFF INH QID PRN for SH ORTNESS OF BREATH, (Reported) Entered as Reported by: GRETA MANCILLA on 05/21/18 1455 Apixaban (Eliquis) 5 Mg Tablet, 5 MG PO BID, (Reported) Entered as Reported by: GRETA MANCILLA on 07/11/17 1530 Ascorbic Acid (Vitamin C) 500 Mg Tablet, 500 MG PO DAILY, (Reported) Entered as Reported by: SERENITY COPELAND on 11/08/21 1132 Buspirone HCl (Buspirone HCl) 15 Mg Tablet, 15 MG PO BID, (Reported) Entered as Reported by: SERENITY COPELAND on 11/08/21 1216 Cephalexin (Cephalexin) 500 Mg Tablet, 500 MG PO QID Prescribed by: ANTWAN PINEDA on 11/15/21 1528 Clonazepam (Clonazepam) 1 Mg Tablet, 1 MG PO BID, (Reported) Entered as Reported by: JAMIE GOVEA on 04/20/19 1024 Dapagliflozin Propanediol (Farxiga) 5 Mg Tablet, 5 MG PO DAILY, (Reported) Entered as Reported by: GRETA MANCILLA on 05/21/18 1455 Denosumab (Prolia) 60 Mg/1 Ml Disp.syrin, 60 MG INJ EVERY 6 MONTHS, (Reported) Entered as Reported by: SERENITY COPELAND on 05/05/20 1153 Dicyclomine HCl (Dicyclomine HCl) 20 Mg Tablet, 20 MG PO QID PRN for GI SPASMS, (Reported) Entered as Reported by: JESSICA GILMORE on 02/28/21 1353 Digoxin (Digoxin) 250 Mcg Tablet, 250 MCG PO DAILY, (Reported) Entered as Reported by: SERENITY COPELAND on 12/30/19 1728 Diltiazem HCl (Diltiazem HCl) 90 Mg Tablet, 90 MG PO TID, (Reported) Entered as Reported by: SERENITY COPELAND on 11/08/21 113 Doxycycline Hyclate (Doxycycline Hyclate) 100 Mg Tablet, 100 MG PO BID, ( Reported) Entered as Reported by: SERENITY COPELAND on 11/08/21 113 Erenumab-Aooe (Aimovig Autoinjector) 70 Mg/1 Ml Auto.injct, 70 MG MONTHLY, (Reported) Entered as Reported by: SERENITY COPELAND on 12/30/19 1728 Ferrous Sulfate (Ferrous Sulfate) 325 Mg Tablet, 325 MG PO DAILY, (Reported) Entered as Reported by: JESSICA GILMORE on 02/28/21 1353 Fludrocortisone Acetate (Fludrocortisone Acetate) 0.1 Mg Tab, 0.1 MG PO Q48H, (Reported) Entered as Reported by: SERENITY COPELAND on 11/08/21 113 Gabapentin (Gabapentin) 600 Mg Tablet, 600 MG PO TID, (Reported) Entered as Reported by: SERENITY COPELAND on 11/08/21 113 Isosorbide Mononitrate (Isosorbide Mononitrate ER) 30 Mg Tab.er.24h, 30 MG PO DAILY, (Reported) Entered as Reported by: SERENITY COPELAND on 11/08/21 113 L.acidoph & Paracasei,B.lactis (Probiotic) 1 Each Capsule, 1 EACH PO DAILY, (Reported) Entered as Reported by: SERENITY COPELAND on 12/30/19 1818 Lamotrigine (Lamotrigine) 25 Mg Tablet, 25 MG PO BID, (Reported) Entered as Reported by: SERENITY COPELAND on 11/08/21 113 Latanoprost (Xalatan) 0.005 % Drops, 1 DROP OU HS, (Reported) Entered as Reported by: SERENITY COPELAND on 11/08/21 113 Levocetirizine Dihydrochloride (Levocetirizine Dihydrochloride) 5 Mg Tablet, 5 MG PO DAILY, (Reported) Entered as Reported by: URSZULA BELL on 05/14/18 0828 Meclizine HCl (Meclizine HCl) 25 Mg Tablet, 25 MG PO Q8H PRN for DIZZINESS, (Reported) Entered as Reported by: JESSICA GILMORE on 02/28/21 1353 Meloxicam (Meloxicam) 15 Mg Tablet, 15 MG PO DAILY, (Reported) Entered as Reported by: SERENITY COPELAND on 11/08/21 1132 Memantine HCl (Memantine HCl) 10 Mg Tablet, 10 MG PO DAILY, (Reported) Entered as Reported by: BIENVENIDO FARRELL on 07/28/15 1444 Metoprolol Succinate (Metoprolol Succinate) 50 Mg Tab.er.24h, 50 MG PO DAILY, (Reported) Entered as Reported by: JESSICA GILMORE on 02/28/21 1353 Montelukast Sodium (Montelukast Sodium) 10 Mg Tablet, 10 MG PO HS, (Reported) Entered as Reported by: SERENITY COPELAND on 11/08/21 1216 Nicotine (Nicotrol) 10 Mg Cartridge, INHALER NS UD PRN for SMOKING CESSATION, (Reported) Entered as Reported by: SERENITY COPELAND on 11/08/21 1132 Nitrofurantoin Macrocrystal (Nitrofurantoin) 100 Mg Capsule, 100 MG PO BID Prescribed by: GINA GUTIERREZ on 02/10/22 1505 Nitroglycerin (Nitroglycerin) 0.4 Mg Tab.subl, 0.4 MG SL UD PRN for CHEST PAIN (ANGINA), (Reported) Entered as Reported by: SERENITY COPELAND on 11/08/21 1132 Oxycodone HCl/Acetaminophen (Percocet 7.5-325 mg Tablet) 1 Each Tablet, 1 TAB PO Q4H PRN for PAIN-MODERATE Prescribed by: PETAR NORMAN on 11/14/21 1433 Pyridoxine HCl (Vitamin B-6) 50 Mg Capsule, 50 MG PO DAILY, (Reported) Entered as Reported by: SERENITY COPELAND on 11/08/21 1132 Rifaximin (Xifaxan) 550 Mg Tablet, 550 MG PO TID PRN for DIARRHEA, (Reported) Entered as Reported by: SERENITY COPELAND on 11/08/21 1132 Ropinirole HCl (Ropinirole HCl) 2 Mg Tablet, 4 MG PO HS, (Reported) Entered as Reported by: SERENITY COPELAND on 12/30/19 1728 Rosuvastatin Calcium (Rosuvastatin Calcium) 20 Mg Tablet, 20 MG PO DAILY, (Reported) Entered as Reported by: SERENITY COPELAND on 11/08/21 1132 Suvorexant (Belsomra) 10 Mg Tablet, 10 MG PO HS, (Reported) Entered as Reported by: SERENITY COPELAND on 11/08/21 1132 Trazodone HCl (Trazodone HCl) 50 Mg Tablet, 50 MG PO HS, (Reported) Entered as Reported by: SERENITY COPELAND on 11/08/21 113 Venlafaxine HCl (Venlafaxine HCl) 75 Mg Tab, 75 MG PO DAILY, (Reported) Entered as Reported by: JESSICA GILMORE on 02/28/21 1354 Review of Systems Review of Systems Constitutional: see HPI EENTM: no symptoms reported Respiratory: no symptoms reported Cardiovascular: no symptoms reported Gastrointestinal: no symptoms reported Genitourinary: other ("itching" around ostomy - she noted a little blood yesterday) Musculoskeletal: other (left sided black pain) Skin: no symptoms reported Psychiatric/Neurological: No Symptoms Reported All Other Systems Reviewed Negative Unless Noted: Yes Past Qqjeoqn-Dbyucl-Twvqer Hx Patient Social History Tobacco Use?: Yes Tobacco type used: Cigarettes Substance use?: No Alcohol Use?: No Pt feels they are or have been: No Immunizations Up To Date Tetanus Booster (TDap): Unknown PED Vaccines UTD: No Influenza Vaccine Up-to-Date: No; Not Current First/Initial COVID19 Vaccinat: 06-09-20 Second COVID19 Vaccination Hugo: 07-18-20 Third COVID19 Vaccination Date: 02-16-21 Seasonal Allergies Seasonal Allergies: Yes Past Medical History Surgery/Hospitalization HX: PMH;HF, COPD, AND STROKE HX. SURGERY; COLOSTOMY, TUABL, AND EXPLORATORY. 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 Sexually Transmitted Disease: No HIV/AIDS: No Genitourinary: Yes UTI-Chronic Gastrointestinal: Yes Gastroesophageal Reflux, Chronic Diarrhea Musculoskeletal: Yes (CERVICAL SUGERY) Arthritis, Back Injury Endocrine: Yes Diabetes, Non-Insulin dep HEENT: Yes (LEFT EAR HEARING IMPAIRMENT) Cataract Loss of Vision: Denies Hearing Impairment: Hard of Hearing Cancer: Yes Bladder Did You Recieve Any Treatments: Yes What Type of Treatment Did You: Surgical Intervention Psychosocial: No Anxiety, Depression Integumentary: No Psoriasis Blood Disorders: No Adverse Reaction/Blood Tranf: No Family Medical History Cardiovascular disease G8 BROTHER (TRIPLE BYPASS) Diabetes mellitus 19 MOTHER FH: COPD (chronic obstructive pulmonary disease) 19 MOTHER FH: breast cancer 19 MOTHER FHx: brain cancer 19 FATHER No Pertinent Family Hx Physical Exam Vital Signs Vital Signs - First Documented 02/10/22 12:13 Temp 36.8 Pulse 82 Resp 18 B/P (MAP) 119/70 (86) Capillary Refill : Height, Weight, BMI Height: 5'4.00" Weight: 165lbs. 0.0oz. 72.658154yd; 26.64 BMI Method:Stated General Appearance: No Apparent Distress, WD/WN, Chronically ill Eyes: Bilateral Eye Normal Inspection, Bilateral Eye PERRL, Bilateral Eye EOMI HEENT: PERRL/EOMI Neck: Normal Inspection Respiratory: Lungs Clear, Normal Breath Sounds, No Accessory Muscle Use, No Respiratory Distress, Other (occasional wet sounding cough) Cardiovascular: Normal Peripheral Pulses Gastrointestinal: Non Tender, Soft, Other (ileostomy pink. non bloody. yello urine in bag) Extremity: Normal Inspection, Normal Range of Motion, Non Tender, No Calf Tenderness Neurologic/Psychiatric: Alert, Oriented x3, No Motor/Sensory Deficits, Normal Mood/Affect, website/blog editor II-XII Norm as Tested Skin: Normal Color, Warm/Dry Progress/Results/Core Measures Suspected Sepsis SIRS Temperature: Pulse: 82 Respiratory Rate: 18 Laboratory Tests 02/10/22 12:37: White Blood Count 9.1 Blood Pressure 119 /70 Mean: 86 Laboratory Tests 02/10/22 12:37: Creatinine 0.67, Platelet Count 188, Total Bilirubin 0.3 Results/Orders Lab Results Laboratory Tests Test 02/10/22 12:37 02/10/22 14:13 02/10/22 14:17 Range/Units White Blood Count 9.1 4.3-11.0 10^3/uL Red Blood Count 4.69 3.80-5.11 10^6/uL Hemoglobin 13.5 11.5-16.0 g/dL Hematocrit 42 35-52 % Mean Corpuscular Volume 90 80-99 fL Mean Corpuscular Hemoglobin 29 25-34 pg Mean Corpuscular Hemoglobin Concent 32 32-36 g/dL Red Cell Distribution Width 14.2 10.0-14.5 % Platelet Count 188 130-400 10^3/uL Mean Platelet Volume 9.8 9.0-12.2 fL Immature Granulocyte % (Auto) 0 % Neutrophils (%) (Auto) 78 H 42-75 % Lymphocytes (%) (Auto) 15 12-44 % Monocytes (%) (Auto) 6 0-12 % Eosinophils (%) (Auto) 1 0-10 % Basophils (%) (Auto) 0 0-10 % Neutrophils # (Auto) 7.1 1.8-7.8 10^3/uL Lymphocytes # (Auto) 1.3 1.0-4.0 10^3/uL Monocytes # (Auto) 0.5 0.0-1.0 10^3/uL Eosinophils # (Auto) 0.1 0.0-0.3 10^3/uL Basophils # (Auto) 0.0 0.0-0.1 10^3/uL Immature Granulocyte # (Auto) 0.0 0.0-0.1 10^3/uL Sodium Level 137 135-145 MMOL/L Potassium Level 4.1 3.6-5.0 MMOL/L Chloride Level 105 98-107 MMOL/L Carbon Dioxide Level 19 L 21-32 MMOL/L Anion Gap 13 5-14 MMOL/L Blood Urea Nitrogen 17 7-18 MG/DL Creatinine 0.67 0.60-1.30 MG/DL Estimat Glomerular Filtration Rate 95 BUN/Creatinine Ratio 25 Glucose Level 119 H 70-105 MG/DL Calcium Level 10.6 H 8.5-10.1 MG/DL Corrected Calcium 10.6 H 8.5-10.1 MG/DL Total Bilirubin 0.3 0.1-1.0 MG/DL Aspartate Amino Transf (AST/SGOT) 77 H 5-34 U/L Alanine Aminotransferase (ALT/SGPT) 92 H 0-55 U/L Alkaline Phosphatase 76 40-136 U/L Total Protein 6.8 6.4-8.2 GM/DL Albumin 4.0 3.2-4.5 GM/DL SARS-CoV-2 RNA (RT-PCR) Detected H Not Detecte Urine Color YELLOW Urine Clarity CLEAR Urine pH 7.0 5-9 Urine Specific [place] 1.010 L 1.016-1.022 Urine Protein NEGATIVE NEGATIVE Urine Glucose (UA) NEGATIVE NEGATIVE Urine Ketones NEGATIVE NEGATIVE Urine Nitrite POSITIVE H NEGATIVE Urine Bilirubin NEGATIVE NEGATIVE Urine Urobilinogen 0.2 < = 1.0 MG/DL Urine Leukocyte Esterase TRACE H NEGATIVE Urine RBC (Auto) 1+ H NEGATIVE Urine RBC 0-2 /HPF Urine WBC 10-25 H /HPF Urine Squamous Epithelial Cells 2-5 /HPF Urine Crystals PRESENT H /LPF Urine Amorphous Sediment MOD JETT PHOSPHATE H /LPF Urine Bacteria LARGE H /HPF Urine Casts NONE /LPF Urine Mucus SMALL H /LPF Urine Culture Indicated YES My Orders Orders - GINA GUTIERREZ MD Ed Iv/Invasive Line Start (02/10/22 12:37) Accucheck Stat ONCE (02/10/22 12:37) Cbc With Automated Diff (02/10/22 12:37) Comprehensive Metabolic Panel (02/10/22 12:37) Ua Culture If Indicated (02/10/22 12:37) Oxycodone/Apap 5/325mg Tablet (Percocet (02/10/22 12:45) Covid 19 Inhouse Test (02/10/22 13:55) Isolation Central Supply Req (02/10/22 13:55) Urine Culture (02/10/22 14:17) Bebtelovimab (Bebtelovimab) (02/10/22 15:00) Nitrofurantoin Capsule,Macro (Macrobid C (02/10/22 15:00) Oxycodone/Apap 5/325mg Tablet (Percocet (02/10/22 15:15) Medications Given in ED Current Medications Medications Dose Ordered Sig/[place] Route Start Time Stop Time Status Last Admin Dose Admin Bebtelovimab 175 mg ONCE ONCE IV 02/10/22 15:00 02/10/22 15:01 DC 02/10/22 15:31 175 MG Nitrofurantoin Macrocrystals 100 mg ONCE ONCE PO 02/10/22 15:00 02/10/22 15:01 DC 02/10/22 15:29 100 MG Oxycodone/ Acetaminophen 1 tab ONCE ONCE PO 02/10/22 12:45 02/10/22 12:46 DC 02/10/22 12:59 1 TAB Oxycodone/ Acetaminophen 1 tab ONCE ONCE PO 02/10/22 15:15 02/10/22 15:16 DC 02/10/22 15:29 1 TAB Vital Signs/I&O 02/10/22 12:13 Temp 36.8 Pulse 82 Resp 18 B/P (MAP) 119/70 (86) Capillary Refill : Blood Pressure Mean: 86 Progress Note : Time: 15:00 Progress Note Notified of patient's positive COVID test. She is up and ambulatory in the room. She has advised the nurse on multiple occasions that she is still having "pain". She did at 1 point say that a 5 mg oxycodone does not really help her pain that she "prefers" 7.5. We will give her a second pain pill. I talked to her about treatment for COVID and as she has multiple comorbidities and is probably chronically somewhat immunosuppressed due to all of her chronic medical conditions offered Paxlovid versus monoclonal antibody therapy. I did advise her that these medications were emergency use authorization still she elects to do the injection of monoclonal. Patient also found to have evidence of mild urinary tract infection. Likely this is due to chronic ileostomy from her prior bladder cancer and cystectomy. However we will culture the urine and go ahead and treat her in light of her COVID-positive status and chronic illnesses advised her she will need to follow-up with her primary care physician for further management of pain as well as for the trazodone she is requesting for sleep. She verbalized understanding. All questions are sought and answered. Departure Impression Primary Impression: COVID-19 Additional Impressions: UTI (urinary tract infection) Qualified Codes: N39.0 - Urinary tract infection, site not specified; R31.9 - Hematuria, unspecified Chronic pain Qualified Codes: G89.29 - Other chronic pain Disposition: 01 HOME, SELF-CARE Condition: Improved Departure-Patient Inst. Decision time for Depature: 15:03 Referrals: [facility],LOCAL PHYSICIAN (PCP) Primary Care Physician Patient Instructions: COVID-19 ED Add. Discharge Instructions: Drink plenty of fluids to stay well-hydrated. You have been treated today with monoclonal antibody therapy for COVID-19 infection. Monitor yourself for worsening symptoms such as worsening cough, fatigue, shortness of breath and cough. If you have any worsening symptoms please return to the emergency room for reevaluation. You do also have evidence of urinary tract infection. I have prescribed you antibiotics, nitrofurantoin, 100 mg tablets twice a day for 7 days. Your first dose was given in the emergency department this afternoon. Please follow-up with your primary care provider at [facility] tomorrow for further pain management as well as reevaluation Scripts Benzonatate (TESSALON PERLES) 100 Mg Capsule 200 MG PO Q8H PRN for cough, #45 CAP Prov: GINA GUTIERREZ MD 02/10/22 Nitrofurantoin Macrocrystal (Nitrofurantoin) 100 Mg Capsule 100 MG PO BID, #13 CAP 0 Refills Prov: GINA GUTIERREZ MD 02/10/22 Copy Copies To 1: FAHAD CLEMENT MD, KATHRYN M MD Feb 10, 2022 12:43
[2022-02-10] MEDS ORDERED: oxyCODONE/APAP 5/325MG (PERCOCET 5) TABLET PO ONE ×2 (12:45→15:15)
[2022-02-10 12:46] LABS: BASOPHILS % (AUTO) 0 % (0-10); EOSINOPHILS # (AUTO) 0.1 10^3/uL (0.0-0.3); EOSINOPHILS % (AUTO) 1 % (0-10); HEMATOCRIT 42 % (35-52); HEMOGLOBIN 13.5 g/dL (11.5-16.0); LYMPHOCYTES # (AUTO) 1.3 10^3/uL (1.0-4.0); LYMPHOCYTES % (AUTO) 15 % (12-44); MEAN CORPUSCULAR HEMOGLOBIN 29 pg (25-34); MEAN CORPUSCULAR HGB CONC 32 g/dL (32-36); MEAN CORPUSCULAR VOLUME 90 fL (80-99); MEAN PLATELET VOLUME 9.8 fL (9.0-12.2); MONOCYTES # (AUTO) 0.5 10^3/uL (0.0-1.0); MONOCYTES % (AUTO) 6 % (0-12); NEUTROPHILS # (AUTO) 7.1 10^3/uL (1.8-7.8); NEUTROPHILS % (AUTO) 78 % (42-75); PLATELET COUNT 188 10^3/uL (130-400); WHITE BLOOD COUNT 9.1 10^3/uL (4.3-11.0)
[2022-02-10 12:57] LABS: POTASSIUM 4.1 MMOL/L (3.6-5.0)
[2022-02-10 12:58] LABS: CALCIUM 10.6 MG/DL (8.5-10.1)
[2022-02-10 12:59] LABS: TOTAL PROTEIN 6.8 GM/DL (6.4-8.2)
[2022-02-10 13:01] LABS: BILIRUBIN,TOTAL 0.3 MG/DL (0.1-1.0)
[2022-02-10 13:03] LABS: CREATININE SERUM 0.67 MG/DL (0.60-1.30)
[2022-02-10 14:20] LABS: BILIRUBIN,URINE NEGATIVE (NEGATIVE); CLARITY,URINE CLEAR; COLOR,URINE YELLOW; GLUCOSE, URINE (UA) NEGATIVE (NEGATIVE); KETONES,URINE NEGATIVE (NEGATIVE); LEUKOCYTE ESTERASE ,URINE TRACE (NEGATIVE); NITRITE,URINE POSITIVE (NEGATIVE); PROTEIN,URINE NEGATIVE (NEGATIVE)
[2022-02-10 14:36] LABS: AMORPHOUS SEDIMENT,UR MOD AMOR PHOSPHATE /LPF; BACTERIA,URINE LARGE /HPF; RBC,URINE 0-2 /HPF
[2022-02-10] MEDS ORDERED: BEBTELOVIMAB 175 MG/2 ML VIAL IV ONE (15:00)
[2022-02-10] MEDS ORDERED: NITROFURANTOIN 100 MG (MACROBID) CAPSULE PO ONE (15:00)
[2022-02-10] MEDS ORDERED: NITR100C PO (15:05)
[2022-02-10] MEDS ORDERED: BENZ100C18 PO (16:11)
[2022-02-10] MEDS ORDERED: BENZONATATE 100 MG (TESSALON) CAPSULE PO STA (16:12)
[2022-02-10 16:42] VITALS: BP 139/81
== END 2022-02-10 16:45 | disposition home or self-care (01) ==
LOC: EDUNIT# 11:56 → ER 11:59
DX: U07.1 COVID-19 (principal); N39.0 Urinary tract infection, site not specified; G89.29 Other chronic pain; F17.210 Nicotine dependence, cigarettes, uncomplicated; Z88.1 Allergy status to other antibiotic agents; Z88.2 Allergy status to sulfonamides; Z88.6 Allergy status to analgesic agent
CPT/HCPCS: 36415; 80053; 81000; 85025; 87077; 87088; 87186; 87636; 99283

== ENCOUNTER 2022-03-09 09:25 | Emergency (ER) | payer MEDICARE, MEDICAID ==
[~2022-03-09] VITALS: Ht 160 cm; Wt 72.0 kg
[2022-03-09] MEDS ORDERED: NS IV 500 ML 500 ML IV STA (09:52)
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
[2022-03-09 10:21] LABS: BASOPHILS % (AUTO) 0 % (0-10); EOSINOPHILS # (AUTO) 0.1 10^3/uL (0.0-0.3); EOSINOPHILS % (AUTO) 2 % (0-10); HEMATOCRIT 34 % (35-52); HEMOGLOBIN 10.9 g/dL (11.5-16.0); LYMPHOCYTES # (AUTO) 1.2 10^3/uL (1.0-4.0); LYMPHOCYTES % (AUTO) 27 % (12-44); MEAN CORPUSCULAR HEMOGLOBIN 29 pg (25-34); MEAN CORPUSCULAR HGB CONC 32 g/dL (32-36); MEAN CORPUSCULAR VOLUME 91 fL (80-99); MEAN PLATELET VOLUME 10.2 fL (9.0-12.2); MONOCYTES # (AUTO) 0.5 10^3/uL (0.0-1.0); MONOCYTES % (AUTO) 11 % (0-12); NEUTROPHILS # (AUTO) 2.6 10^3/uL (1.8-7.8); NEUTROPHILS % (AUTO) 60 % (42-75); PLATELET COUNT 149 10^3/uL (130-400); WHITE BLOOD COUNT 4.4 10^3/uL (4.3-11.0)
--- NOTE | 2022-03-09 10:28 | Diagnostic Imaging Report ---
INDICATION: Cough, dyspnea, recent rib fractures EXAMINATION: Chest 03/09/2022 COMPARISON: 11/15/21. FINDINGS: There is cardiomegaly. There is developing infiltrate or atelectasis at the bases: No significant effusions. No pneumothorax. Postoperative changes partially visualized in the cervical region. There are known rib fractures however this is not visualized on current examination. IMPRESSION: 1. Possible bibasal infiltrates new since previous examination. Dictated by: Dictated on workstation # [id number]
[2022-03-09 10:33] LABS: ALBUMIN 3.3 GM/DL (3.2-4.5); POTASSIUM 4.1 MMOL/L (3.6-5.0)
[2022-03-09 10:34] LABS: CALCIUM 9.2 MG/DL (8.5-10.1)
[2022-03-09 10:35] LABS: TOTAL PROTEIN 5.7 GM/DL (6.4-8.2)
[2022-03-09 10:37] LABS: BILIRUBIN,TOTAL 0.4 MG/DL (0.1-1.0)
[2022-03-09 10:39] LABS: CREATININE SERUM 0.61 MG/DL (0.60-1.30)
[2022-03-09] MEDS ORDERED: NIRM1TAB PO (11:17)
[2022-03-09 11:33] VITALS: BP 94/62
== END 2022-03-09 11:33 | disposition home or self-care (01) ==
LOC: EDUNIT# 09:25 → ER 09:27
DX: U07.1 COVID-19 (principal); J43.9 Emphysema, unspecified; F17.200 Nicotine dependence, unspecified, uncomplicated; Z99.81 Dependence on supplemental oxygen
CPT/HCPCS: 36415; 71045; 80053; 83605; 85025; 87040; 87636

== ENCOUNTER 2022-03-19 08:00 | Day surgery (SDC) | payer MEDICARE, MEDICAID ==
[2022-03-19] VITALS (9 sets, daily range): BP systolic 106–132; BP diastolic 67–91
[~2022-03-19] VITALS: Ht 160 cm; Wt 70.4 kg
[~2022-03-19 08:00] MED LIST changes: +HEParin (CATH LAB) 2,000 ML IV ONE; +LIDOCAINE 1% INJ 30 ML (XYLOCAINE) VIAL ONE; +NIRM1TAB PO; +NS IV 1000 ML 1,000 ML IV SCH; +NS IV 1000 ML 1,000 ML ONE
[2022-03-19 08:33] LABS: HEMATOCRIT 44 % (35-52); HEMOGLOBIN 14.2 g/dL (11.5-16.0); MEAN CORPUSCULAR HEMOGLOBIN 29 pg (25-34); MEAN CORPUSCULAR HGB CONC 32 g/dL (32-36); MEAN CORPUSCULAR VOLUME 91 fL (80-99); MEAN PLATELET VOLUME 9.6 fL (9.0-12.2); PLATELET COUNT 307 10^3/uL (130-400); WHITE BLOOD COUNT 6.5 10^3/uL (4.3-11.0)
[2022-03-19 08:45] LABS: INR 0.9 (0.8-1.4)
[2022-03-19 08:54] LABS: ALBUMIN 4.3 GM/DL (3.2-4.5); BILIRUBIN,TOTAL 0.4 MG/DL (0.1-1.0); CALCIUM 9.8 MG/DL (8.5-10.1); CREATININE SERUM 0.67 MG/DL (0.60-1.30); POTASSIUM 4.4 MMOL/L (3.6-5.0); TOTAL PROTEIN 7.7 GM/DL (6.4-8.2)
[2022-03-19] MEDS ORDERED: CYCL10TA25 PO (08:57)
[2022-03-19] MEDS ORDERED: ELUX75TA PO (08:57)
[2022-03-19] MEDS ORDERED: NALO4SPR NS (08:57)
[2022-03-19] MEDS ORDERED: FLUT9.9S16 NSEACH (08:57)
[2022-03-19] MEDS ORDERED: ALOS0.5T2 PO (08:57)
[2022-03-19] MEDS ORDERED: EPIN0.3P2 IJ (08:57)
[2022-03-19] MEDS ORDERED: IPRA3AMP31 IH (08:57)
[2022-03-19] MEDS ORDERED: GENT5DRO30 OP (08:57)
[2022-03-19] MEDS ORDERED: PRIM250T33 PO (08:57)
[2022-03-19] MEDS ORDERED: ALBU6.7H13 INH (08:57)
[2022-03-19] MEDS ORDERED: BUDE10.7 IH (08:57)
[2022-03-19] MEDS ORDERED: TRAZ-227 PO (08:57)
[2022-03-19] MEDS ORDERED: LIPA1CAP70 PO (08:57)
[2022-03-19] MEDS ORDERED: LIDO1ADH78 TP (08:57)
[2022-03-19] MEDS ORDERED: SUVO10TA2 PO (08:57)
[2022-03-19] MEDS ORDERED: OXYC15TA56 PO (08:57)
[2022-03-19] MEDS ORDERED: PANT40TA52 PO (08:57)
[2022-03-19] MEDS ORDERED: ISOS120T9 PO (08:57)
[2022-03-19] MEDS ORDERED: fentaNYL INJ 100 MCG/2 ML AMP ONE (10:25)
[2022-03-19] MEDS ORDERED: MIDAZOLAM 5 MG/5 ML (VERSED) VIAL ONE (10:25)
--- NOTE | 2022-03-19 11:05 | Cardiac Procedure Note-CS/ASA ---
Pre-Procedure Note Pre-Op Procedure Note Date of Available H&P: Mar 13, 2022 Date H&P Reviewed: Mar 19, 2022 Time H&P Reviewed: 10:20 History & Physical: H&P Reviewed, No changes noted Conscious Sedation Pre-Proced ASA Score 3 For ASA 3 and 4: Consider anesthesia and medical clearance. Also, for patients with a history of failed moderate sedation consider anesthesia. Airway Lungs Heart ASA score ASA 1: a normal healthy patient ASA 2: a patient with a mild systemic disease (mid diabetes, controlled hypertension, obesity ASA 3: a patient with a severe systemic disease that limits activity (angina, COPD, prior Myocardial infarction) ASA 4: a patient with an incapacitating disease that is a constant threat to life (CHF, renal failure) ASA 5: a moribund patient not expected to survive 24 hrs. (ruptured aneurysm) ASA 6: a declared brain- patient whose organs are being harvested. For emergent operations, add the letter E after the classification Mallampati Classification Grade 2 Sedation Plan Analgesia, Amnesia, Plan communicated to team members The patient is an appropriate candidate to undergo the planned procedure, sedation, and anesthesia. The patient immediately re-assessed prior to indication. MARY MILLER MD FACP FAC CCDS Mar 19, 2022 11:05
[2022-03-19] MEDS ORDERED: ASPI-999 PO (11:10)
--- NOTE | 2022-03-19 11:11 | Discharge Inst-Cardiology ---
Discharge Inst-Cardiac Discharge Medications New Medications: Aspirin (Aspirin) 81 Mg Tab.chew 81 MG PO DAILY, #30 TAB 5 Refills Continued Medications: Albuterol Sulfate (Proventil Hfa) 90 Mcg Hfa.aer.ad 2 PUFF INH Q6H PRN for WHEEZING, GM Alosetron HCl (Alosetron HCl) 0.5 Mg Tablet 0.5 MG PO BID, TAB Apixaban (Eliquis) 5 Mg Tablet 5 MG PO BID, TAB Benzonatate (Tessalon Perles) 100 Mg Capsule 200 MG PO Q8H PRN for cough, #45 CAP Budesonide/Glycopyr/Formoterol (Breztri Aerosphere Inhaler) 160 Mcg-9 Mcg-4.8 Mcg/Actuation Hfa.aer.ad 10.7 GM IH DAILY, GM Buspirone HCl (Buspirone HCl) 15 Mg Tablet 15 MG PO TID, TAB Cephalexin (Cephalexin) 500 Mg Tablet 500 MG PO QID for 7 Days, #28 TAB Clonazepam (Clonazepam) 1 Mg Tablet 1 MG PO BID, TAB Cyclobenzaprine HCl (Cyclobenzaprine HCl) 10 Mg Tablet 10 MG PO TID PRN for SPASMS, TAB Dapagliflozin Propanediol (Farxiga) 5 Mg Tablet 5 MG PO DAILY Diltiazem HCl (Diltiazem HCl) 90 Mg Tablet 90 MG PO TID, TAB Eluxadoline (Viberzi) 75 Mg Tablet 75 MG PO BID, TAB Epinephrine (Epipen) 0.3 Mg/0.3 Ml Auto.injct 0.3 MG IJ PRN, ML Erenumab-Aooe (Aimovig Autoinjector) 70 Mg/1 Ml Auto.injct 70 MG MONTHLY, EA Fludrocortisone Acetate (Fludrocortisone Acetate) 0.1 Mg Tab 0.1 MG PO DAILY, TAB Fluticasone Furoate (Flonase Sensimist) 27.5 Mcg/Actuation [place].susp 2 SPRAYS NSEACH DAILY, EA Gabapentin (Gabapentin) 600 Mg Tablet 600 MG PO TID, TAB Gentamicin Sulfate (Gentamicin Sulfate) 0.3 % Drops 5 ML OP DAILY, DROPS Ipratropium/Albuterol Sulfate (Iprat-Albut 0.5-3(2.5) mg/3 ml) 0.5 Mg-3 Mg (2.5 Mg Base)/3 Ml Ampul.neb 3 ML IH Q6H PRN for SHORTNESS OF BREATH, EACH Isosorbide Mononitrate (Isosorbide Mononitrate ER) 120 Mg Tab.er.24h 120 MG PO DAILY, TAB Lamotrigine (Lamotrigine) 25 Mg Tablet 25 MG PO BID, TAB Latanoprost (Xalatan) 0.005 % Drops 1 DROP OU HS, DROP Levocetirizine Dihydrochloride (Levocetirizine Dihydrochloride) 5 Mg Tablet 5 MG PO DAILY, TAB Lidocaine (Lidocaine) 4 % Adh..patch 1 EACH TP DAILY, PATCH Lipase/Protease/Amylase (Zenpep Dr 40,000 Units Capsule) 40126-168 Capsule.dr 2 EACH PO TID, CAP Meclizine HCl (Meclizine HCl) 25 Mg Tablet 25 MG PO Q8H PRN for DIZZINESS, TAB Memantine HCl (Memantine HCl) 10 Mg Tablet 10 MG PO DAILY, TAB Metoprolol Succinate (Metoprolol Succinate) 50 Mg Tab.er.24h 50 MG PO DAILY, TAB Montelukast Sodium (Montelukast Sodium) 10 Mg Tablet 10 MG PO HS, TAB Naloxone HCl (Narcan) 4 Mg/Actuation [place] 4 MG NS PRN, SPRAY Nicotine (Nicotrol) 10 Mg Cartridge INHALER NS UD PRN for SMOKING CESSATION, EA Nitroglycerin (Nitroglycerin) 0.4 Mg Tab.subl 0.4 MG SL UD PRN for CHEST PAIN (ANGINA), TAB Oxycodone HCl (Roxicodone) 15 Mg Tablet 15 MG PO Q6H PRN for PAIN-SEVERE (8-10) for 7 Days, TAB Pantoprazole Sodium (Pantoprazole Sodium) 40 Mg Tablet.dr 40 MG PO DAILY, TAB Primidone (Mysoline) 250 Mg Tablet 250 MG PO BID, TAB Ropinirole HCl (Ropinirole HCl) 2 Mg Tablet 4 MG PO HS, TAB TAKES 2 (2MG) TABS Rosuvastatin Calcium (Rosuvastatin Calcium) 20 Mg Tablet 20 MG PO DAILY, TAB Suvorexant (Belsomra) 10 Mg Tablet 10 MG PO HS for 7 Days, TAB Trazodone HCl (Trazodone HCl) 100 Mg Tablet 100 MG PO HS, TAB Discontinued Medications: Digoxin (Digoxin) 250 Mcg Tablet 250 MCG PO DAILY, TAB MARY MILLER MD FACP FAC CCDS Mar 19, 2022 11:11
--- NOTE | 2022-03-19 11:12 | Discharge Inst-Post CATH ---
Discharge Inst-CATH/EP Post Cardiac Cath/EP D/C Inst Follow Up/Plan F/u with Dr Verde in 1 month ACTIVITY * Go Home directly and rest. * Limit activity of the leg (or wrist if it was used) for 7 days including aerobics, swimming, jogging, bicycling, etc. * Restrict stair-climbing for 7 days if possible, if not, climb up with your no n-cath leg, then bring together on the same step. * Avoid lifting, pushing, pulling or excessive movement of the affected ext remity for 7 days. * Customary sexual activity may be resumed after 2 days-use caution not to use a position that strains or causes pain to the affected extremity. * No driving for 24 hours. * NO SMOKING. * Avoid straining for bowel movements for 7 days. * Gentle walking on level ground is allowed. * Returning to work will depend on the type of procedure and the results. Your doctor will discuss this with you. CALL YOUR DOCTOR FOR ANY OF THE FOLLOWING: *If bleeding from the puncture site occurs- Apply gentle pressure to site with clean cloth and call your doctor or EMS. * If a knot or lump forms under the skin, increases in size, or causes pain. * If bruising appears to be worsening or moving further down your leg instead of disappearing. * Temperature above 101 F. CARE OF YOUR GROIN INCISION; * Bruising or purple discoloration of the skin near the puncture site is common. * You may shower only, no bathtub bathing for 5 days. Be careful to avoid slipping as your leg may feel stiff. * If a closure device was used on your femoral artery, please see the attached guide regarding care of the device and your leg. * Leave dressing on FOR 24 hours. CARE OF YOUR WRIST INCISION; * Bruising or purple discoloration of the skin near the puncture site is common. * You may shower. * DO NOT submerge wrist. * Leave dressing on FOR 24 hours. MARY VERDE MD FACP FAC CCDS Mar 19, 2022 11:12
[2022-03-19] MEDS ORDERED: NS IV 1000 ML 1,000 ML IV SCH (11:15)
[2022-03-19] MEDS ORDERED: PATIENT MAY USE OWN MEDS, ALL PO SCH (11:15)
[2022-03-19] MEDS ORDERED: oxyCODONE/APAP 5/325MG (PERCOCET 5) TABLET PO ONE (11:45)
--- NOTE | 2022-03-19 20:59 | CARDIAC CATHETERIZATION ---
DATE OF SERVICE: 03/19/2022 CARDIAC CATHETERIZATION INDICATIONS: The patient is a 66-year-old lady who has multiple coronary artery disease risk factors and has been known to have lofi-ce-egemybao coronary artery disease and previous cardiac workup. Lately, she has been having increasing chest discomfort suggestive of new onset of angina. Cardiac catheterization was carried out after having obtained an informed consent. DESCRIPTION OF PROCEDURE: She was brought to the cardiac catheterization laboratory in a fasting state. Right groin was prepped and draped in the usual sterile fashion. A 1% lidocaine was used as local anesthesia. A modified Seldinger technique was used to advance a 5-Australian sheath in the right femoral artery. A 5-Australian JL4 catheter was used for left coronary angiography. A 5-Australian JR4 catheter was used for right coronary angiography. A 5-Australian pigtail catheter was used for left heart catheterization and left ventricular angiography. At the end of the procedure, angiography of the right femoral artery was carried out through the sheath. The site of sheath deployment did not appear suitable for device closure. Manual pressure was used to achieve hemostasis. The patient tolerated the procedure well. HEMODYNAMICS: Left ventricular end-diastolic pressure following coronary angiography was 10 mmHg. There was no significant pressure gradient on pullback across the aortic valve. The ascending aortic pressure was 114/62 with a mean of 67 mmHg. CORONARY ANGIOGRAPHY: There is moderate calcification of the proximal portions of all coronary vessels. Left main coronary artery does not exhibit significant obstructive disease. Left anterior descending artery has diffuse mild plaque. Left circumflex artery has diffuse mild plaque. Right coronary artery has mild plaque in its proximal portion. LEFT VENTRICULAR CORONARY ANGIOGRAPHY: Left ventricular coronary angiography was carried out the right anterior oblique projection. Global left systolic function is normal. No regional wall motion abnormalities seen in this view. Ejection fraction approximately 60%. CONCLUSION: 1. Xyda-wn-efmqcmem coronary artery disease without evidence of significant obstructive disease. 2. Normal global left systolic function with ejection fraction approximately 60%. 3. Normal left ventricular end-diastolic pressure. DISCUSSION AND RECOMMENDATIONS: Based on the results of the study, it appears appropriate to continue a conservative approach. Risk factor modification has been reviewed. Current regimen has been continued. Outpatient followup is advised. Job ID: [id number] DocumentID: [id number] Dictated Date: 03/19/2022 11:01:14 Litigation Legal Assistant Date: 03/19/2022 20:58:00 Dictated By: MARY MILLER MD; SHAHLA; FACP; FACC;
== END 2022-03-19 15:05 | disposition home or self-care (01) ==
LOC: CATH 08:00 → SDC 11:56 → CATH 15:05
PROVIDERS: ATTEND Internal Medicine Cardiovascular Disease
DX: I25.10 Atherosclerotic heart disease of native coronary artery without angina pectoris (principal); F17.210 Nicotine dependence, cigarettes, uncomplicated; I48.0 Paroxysmal atrial fibrillation; I65.23 Occlusion and stenosis of bilateral carotid arteries; Z98.890 Other specified postprocedural states
CPT/HCPCS: 36415; 80053; 80061; 85027; 85610; 85730; 87081; 93005; 93458

== ENCOUNTER 2022-03-24 14:56 | Emergency (ER) | payer MEDICARE, MEDICAID ==
[~2022-03-24 14:56] MED LIST changes: +ALBU6.7H13 INH; +ASPI-999 PO; +BUDE10.7 IH; +CYCL10TA25 PO; +ELUX75TA PO; +EPIN0.3P2 IJ; +FLUT9.9S16 NSEACH; +GENT5DRO30 OP; -HEParin (CATH LAB) 2,000 ML IV ONE; +IPRA3AMP31 IH; +ISOS120T9 PO; +LIDO1ADH78 TP; -LIDOCAINE 1% INJ 30 ML (XYLOCAINE) VIAL ONE; +LIPA1CAP70 PO; +NALO4SPR NS; -NS IV 1000 ML 1,000 ML IV SCH; -NS IV 1000 ML 1,000 ML ONE; +OXYC15TA56 PO
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
--- NOTE | 2022-03-24 15:33 | Diagnostic Imaging Report ---
INDICATION: Chest pain and dyspnea. COMPARISON: 03/09/2022. DISCUSSION: Two views of the chest were obtained. Improved aeration of the lungs. No consolidation on today's exam. No pleural fluid or pneumothorax. Normal heart size. No osseous abnormality. IMPRESSION: Negative chest. Dictated by: Dictated on workstation # [id number]
[2022-03-24 16:10] LABS: BILIRUBIN,URINE NEGATIVE (NEGATIVE); CLARITY,URINE TURBID; COLOR,URINE YELLOW; GLUCOSE, URINE (UA) NEGATIVE (NEGATIVE); KETONES,URINE NEGATIVE (NEGATIVE); LEUKOCYTE ESTERASE ,URINE 3+ (NEGATIVE); NITRITE,URINE POSITIVE (NEGATIVE); PROTEIN,URINE NEGATIVE (NEGATIVE)
[2022-03-24 16:35] LABS: BACTERIA,URINE FEW /HPF; SQUAMOUS EPITHELIAL CELL,UR RARE /HPF; URIC ACID CRYSTALS,URINE RARE /LPF; WBC,URINE 25-50 /HPF
[2022-03-24 16:43] VITALS: BP 116/74
[2022-03-24] MEDS ORDERED: LEVO-55 PO (16:45)
== END 2022-03-24 16:47 | disposition home or self-care (01) ==
LOC: EDUNIT# 14:56 → ER 14:58
DX: N39.0 Urinary tract infection, site not specified (principal); G89.29 Other chronic pain; R07.89 Other chest pain; J43.9 Emphysema, unspecified; G47.00 Insomnia, unspecified; Z79.899 Other long term (current) drug therapy; Z99.81 Dependence on supplemental oxygen; Z88.2 Allergy status to sulfonamides; Z96.0 Presence of urogenital implants; Z85.51 Personal history of malignant neoplasm of bladder
CPT/HCPCS: 71046; 81000; 87077; 87088; 87186

== ENCOUNTER 2022-04-02 14:20 | Inpatient (IN) | payer MEDICARE, MEDICAID ==
[~2022-04-02] VITALS: Ht 162 cm; Wt 67.3 kg
[~2022-04-02 14:20] MED LIST changes: +LEVO-55 PO
[2022-04-02] MEDS ORDERED: MEROPENEM 1,000 MG in NS (IVPB) 100 ML IV ONE (14:45)
[2022-04-02] MEDS ORDERED: ONDANSETRON 4 MG (ZOFRAN) ORAL DISSOLVE TAB PO ONE (15:00)
[2022-04-02] MEDS ORDERED: ACETAMINOPHEN 500 MG TAB (TYLENOL) PO STA (15:11)
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
[2022-04-02 15:31] LABS: BILIRUBIN,URINE NEGATIVE (NEGATIVE); CLARITY,URINE CLEAR; COLOR,URINE YELLOW; GLUCOSE, URINE (UA) 1+ (NEGATIVE); KETONES,URINE NEGATIVE (NEGATIVE); LEUKOCYTE ESTERASE ,URINE 1+ (NEGATIVE); NITRITE,URINE NEGATIVE (NEGATIVE); PROTEIN,URINE NEGATIVE (NEGATIVE)
[2022-04-02 15:39] LABS: BACTERIA,URINE TRACE /HPF; WBC,URINE RARE /HPF; YEAST,URINE LARGE /HPF
[2022-04-02 15:47] LABS: BASOPHILS # (AUTO) 0.1 10^3/uL (0.0-0.1); BASOPHILS % (AUTO) 1 % (0-10); EOSINOPHILS # (AUTO) 0.2 10^3/uL (0.0-0.3); EOSINOPHILS % (AUTO) 4 % (0-10); HEMATOCRIT 37 % (35-52); LYMPHOCYTES # (AUTO) 1.6 10^3/uL (1.0-4.0); LYMPHOCYTES % (AUTO) 36 % (12-44); MEAN CORPUSCULAR HEMOGLOBIN 30 pg (25-34); MEAN CORPUSCULAR HGB CONC 33 g/dL (32-36); MEAN CORPUSCULAR VOLUME 91 fL (80-99); MEAN PLATELET VOLUME 10.5 fL (9.0-12.2); MONOCYTES # (AUTO) 0.5 10^3/uL (0.0-1.0); MONOCYTES % (AUTO) 11 % (0-12); NEUTROPHILS # (AUTO) 2.1 10^3/uL (1.8-7.8); NEUTROPHILS % (AUTO) 47 % (42-75); PLATELET COUNT 164 10^3/uL (130-400); WHITE BLOOD COUNT 4.4 10^3/uL (4.3-11.0)
[2022-04-02 16:01] LABS: ALBUMIN 3.9 GM/DL (3.2-4.5); POTASSIUM 4.1 MMOL/L (3.6-5.0)
[2022-04-02 16:02] LABS: CALCIUM 9.8 MG/DL (8.5-10.1)
[2022-04-02 16:04] LABS: TOTAL PROTEIN 6.2 GM/DL (6.4-8.2)
[2022-04-02 16:05] LABS: BILIRUBIN,TOTAL 0.2 MG/DL (0.1-1.0)
[2022-04-02 16:07] LABS: CREATININE SERUM 0.65 MG/DL (0.60-1.30)
[2022-04-02] MEDS ORDERED: CALCIUM CARBONATE 500 MG (TUMS) TAB.CHEW PO PRN (17:45)
[2022-04-02] MEDS ORDERED: MILK OF MAGNESIA 400 MG/5 ML 30 ML UDC PO PRN (17:45)
[2022-04-02] MEDS ORDERED: MELATONIN 3 MG TABLET PO PRN (17:45)
[2022-04-02] MEDS ORDERED: LACTULOSE SYRUP 10GM/15ML (ENULOSE) 30ML UDC PO PRN (17:45)
[2022-04-02] MEDS ORDERED: BISACODYL 10 MG SUPP (DULCOLAX) PR PRN (17:45)
[2022-04-02] MEDS ORDERED: ACETAMINOPHEN 325 MG TABLET PO PRN (17:45)
[2022-04-02] MEDS ORDERED: diphenhydrAMINE 50 MG/ML INJ (BENADRYL) IVP PRN (17:45)
[2022-04-02] MEDS ORDERED: polyethylene glycoL POWDER 17 GM (MIRALAX) PACK PO PRN (17:45)
[2022-04-02] MEDS ORDERED: ANTACID SUSP 30 ML UDC (MYLANTA) PO PRN (17:45)
[2022-04-02] MEDS ORDERED: ONDANSETRON 4 MG/2 ML (SDV) Z0FRAN IV PRN (17:45)
[2022-04-02] MEDS ORDERED: MEROPENEM 1000 MG (MERREM) VIAL IV ONE (17:45)
[2022-04-02] MEDS ORDERED: diphenhydrAMINE 25 MG TAB (BENADRYL) PO PRN (17:45)
[2022-04-02] MEDS ORDERED: NS (IVPB) 100 ML ONE (17:45)
[2022-04-02] MEDS ORDERED: ENOXAPARIN 40 MG/0.4 ML (LOVENOX) SYR SC SCH (18:00)
[2022-04-02 18:04] VITALS: BP 126/79
[2022-04-02] MEDS: DOCUSATE SODIUM 100 MG (COLACE) CAP PO SCH (19:30)
[2022-04-02] MEDS: SENNOSIDES 8.6 MG (SENOKOT) TAB PO SCH (19:30)
[2022-04-02 19:41] VITALS: BP 117/71
[2022-04-02] MEDS ORDERED: RT-ALBUTEROL/IPRATROPIUM 3 ML (DUONEB) VIAL IH PRN (20:15)
[2022-04-02] MEDS: HYDROmorphone 2 MG/ML VIAL (DILAUDID) IV PRN (20:43)
[2022-04-02] MEDS ORDERED: traZODone 100 MG (DESYREL) TAB PO SCH (21:00)
[2022-04-02] MEDS ORDERED: ALOSETRON HCL 0.5 MG PO SCH (21:00)
[2022-04-02] MEDS: APIXABAN 5 MG (ELIQUIS) TABLET PO SCH (22:03)
[2022-04-02] MEDS: busPIRone 15 MG (BUSPAR) TABLET PO SCH (22:03)
[2022-04-02] MEDS: lamoTRIgine 25 MG (LaMICtal) TAB PO SCH (22:03)
[2022-04-02] MEDS: clonazePAM 1 MG (KlonoPIN) TAB PO SCH (22:03)
[2022-04-02] MEDS: GABAPENTIN 600 MG (NEURONTIN) TAB PO SCH (22:03)
[2022-04-02 23:01] VITALS: BP 104/55
[2022-04-02] MEDS: ONDANSETRON 4 MG (ZOFRAN) ORAL DISSOLVE TAB PO PRN (23:07)
[2022-04-02] MEDS: CYCLOBENZAPRINE 10 MG (FLEXERIL) TAB PO PRN (23:07)
[2022-04-03] MEDS ORDERED: MEROPENEM 1,000 MG in NS (IVPB) 100 ML IV SCH ×2 (02:00→14:00)
[2022-04-03] MEDS: HYDROmorphone 2 MG/ML VIAL (DILAUDID) IV PRN ×2 (02:08→11:33)
[2022-04-03 04:02] VITALS: BP 111/64
[2022-04-03] MEDS ORDERED: ISOSORBIDE MONONITRATE 60 MG (IMDUR) TAB PO ONE (04:09)
[2022-04-03 05:47] LABS: BASOPHILS % (AUTO) 1 % (0-10); EOSINOPHILS # (AUTO) 0.1 10^3/uL (0.0-0.3); EOSINOPHILS % (AUTO) 2 % (0-10); HEMATOCRIT 36 % (35-52); HEMOGLOBIN 11.9 g/dL (11.5-16.0); LYMPHOCYTES # (AUTO) 1.1 10^3/uL (1.0-4.0); LYMPHOCYTES % (AUTO) 17 % (12-44); MEAN CORPUSCULAR HEMOGLOBIN 30 pg (25-34); MEAN CORPUSCULAR HGB CONC 33 g/dL (32-36); MEAN CORPUSCULAR VOLUME 91 fL (80-99); MONOCYTES # (AUTO) 0.6 10^3/uL (0.0-1.0); MONOCYTES % (AUTO) 9 % (0-12); NEUTROPHILS # (AUTO) 4.6 10^3/uL (1.8-7.8); NEUTROPHILS % (AUTO) 71 % (42-75); PLATELET COUNT 135 10^3/uL (130-400); WHITE BLOOD COUNT 6.5 10^3/uL (4.3-11.0)
[2022-04-03] MEDS ORDERED: ISOSORBIDE MONONITRATE 60 MG (IMDUR) TAB PO SCH (06:30)
[2022-04-03 07:14] VITALS: BP 117/64
[2022-04-03 07:42] LABS: ALBUMIN 3.4 GM/DL (3.2-4.5); BILIRUBIN,TOTAL 0.2 MG/DL (0.1-1.0); CALCIUM 8.9 MG/DL (8.5-10.1); CREATININE SERUM 0.6 MG/DL (0.60-1.30); TOTAL PROTEIN 5.7 GM/DL (6.4-8.2)
[2022-04-03] MEDS: GABAPENTIN 600 MG (NEURONTIN) TAB PO SCH ×2 (07:55→12:25)
[2022-04-03] MEDS: DOCUSATE SODIUM 100 MG (COLACE) CAP PO SCH (07:55)
[2022-04-03] MEDS: busPIRone 15 MG (BUSPAR) TABLET PO SCH ×2 (07:55→12:25)
[2022-04-03] MEDS: lamoTRIgine 25 MG (LaMICtal) TAB PO SCH (07:55)
[2022-04-03] MEDS: SENNOSIDES 8.6 MG (SENOKOT) TAB PO SCH (07:55)
[2022-04-03] MEDS: clonazePAM 1 MG (KlonoPIN) TAB PO SCH (07:56)
[2022-04-03] MEDS: APIXABAN 5 MG (ELIQUIS) TABLET PO SCH (07:56)
[2022-04-03] MEDS ORDERED: UMECLIDINIUM BROMIDE (INCRUSE ELLIPTA) 7'S IH SCH (08:00)
[2022-04-03] MEDS ORDERED: RT--FLUTICASONE/SALMETEROL 232-14 (AIRDUO RespiCLICK) IH SCH (08:00)
[2022-04-03] MEDS: ONDANSETRON 4 MG (ZOFRAN) ORAL DISSOLVE TAB PO PRN (08:24)
[2022-04-03] MEDS ORDERED: EMPAGLIFLOZIN 10 MG TABLET (JARDIANCE) PO SCH (09:00)
[2022-04-03] MEDS ORDERED: LORATADINE (CLARITIN) 10 MG TAB PO SCH (09:00)
[2022-04-03] MEDS ORDERED: FLUTICASONE NASAL SPRAY (FLONASE) 16 GM BTL NS SCH (09:00)
[2022-04-03] MEDS ORDERED: FLUDROCORTISONE 0.1 MG (FLORINEF) TAB PO SCH (09:00)
[2022-04-03] MEDS ORDERED: ERTA1VIA4 IM (10:29)
[2022-04-03] MEDS ORDERED: TIZA-169 (10:36)
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
[2022-04-03] MEDS ORDERED: GABA300C PO (11:01)
[2022-04-03] MEDS ORDERED: TIOT4MIS3 IH (11:06)
[2022-04-03 11:09] VITALS: BP 107/57
[2022-04-03] MEDS: CYCLOBENZAPRINE 10 MG (FLEXERIL) TAB PO PRN (11:33)
[2022-04-03] MEDS ORDERED: OXYC15TA56 PO (12:40)
--- NOTE | 2022-04-03 12:42 | D/C HH Face to Face Order ---
D/C Face to Face Orders Reconcile Patient Problems Problems Reviewed?: Yes Instructions for Patient Friona Patient Instructions/FollowUp: PCP 1 week Physician to follow Patient: [facility] Discharge Diet for Home: No Restrictions Patient Problems: ESBL UTI Patient Data-Allergies,Ht & Wt Patient Allergies: Coded Allergies: bacitracin (Verified Allergy, Intermediate, "I BREAK OUT IN A RASH ALL OVER.", 04/02/22) neomycin (Verified Allergy, Intermediate, "I BREAK OUT IN A RASH ALL OVER.", 04/02/22) polymyxin B (Verified Allergy, Intermediate, "I BREAK OUT IN A RASH ALL OVER.", 04/02/22) ibuprofen (Verified Allergy, Mild, RASH, 04/02/22) naproxen (Verified Allergy, Mild, RASH, 04/02/22) strawberry (Verified Allergy, Mild, 04/02/22) sulfamethoxazole (Verified Allergy, Unknown, 04/02/22) tramadol (Verified Allergy, Unknown, 04/02/22) trimethoprim (Verified Allergy, Unknown, 04/02/22) Height (Feet): 5 Height (Inches): 4.00 Weight (Pounds): 165 Weight (Ounces): 0.0 Home Health Need/Face to Face Date of Face to Face: Apr 03, 2022 Clinical Findings: Other-list in note (IM antibiotics) I have seen Pt [id number]: Yes Discharged To: Home Diagnosis/Conditions: ESBL UTI Patient is Homebound due to: Muscle weakness Homebound Status Due to the above stated illness, injury or surgical procedure (medical condition or diagnosis) and associated clinical findings, the patient is homebound because of his/her inability to leave home except with aid of a supportive device and/or person AND leaving the home requires a considerable and taxing effort or is medically contraindicated. Pt req the following assistanc: [facility] Nursing Orders Home Health Services Order: Internet Architect-Evaluate & Treat, Physical Therapy-Evaluate & Treat Certify Stmt I certify that this patient is under my care and that I, a nurse practitioner or a physician; a visitor services information assistant working with me, had a face to face encounter that - meets the physician face to face encounter requirements with this patient as dated. BAYLEE WHITE DO Apr 03, 2022 12:42
[2022-04-03] MEDS ORDERED: LIDOCAINE 1% INJ 20 ML VIAL INJ NR (15:00)
[2022-04-03] MEDS ORDERED: ERTAPENEM 1000 MG (INVanz) VIAL IM NR (15:00)
[2022-04-03 15:48] VITALS: BP 122/71
[2022-04-03 16:30] VITALS: BP 122/71
[2022-04-03] MEDS ORDERED: rOPINIRole 1 MG (REQUIP) TABLET PO SCH (21:00)
== END 2022-04-03 16:40 | disposition home health service (06) | DRG 690 ==
LOC: EDUNIT# 14:20 → ER 14:22 → 4TH 17:19
PROVIDERS: ADMIT Internal Medicine; ATTEND Internal Medicine
DX: N39.0 Urinary tract infection, site not specified (principal); Z16.12 Extended spectrum beta lactamase (ESBL) resistance; F17.210 Nicotine dependence, cigarettes, uncomplicated; I25.10 Atherosclerotic heart disease of native coronary artery without angina pectoris; J44.9 Chronic obstructive pulmonary disease, unspecified; E78.5 Hyperlipidemia, unspecified; K21.9 Gastro-esophageal reflux disease without esophagitis; Z88.1 Allergy status to other antibiotic agents; Z88.2 Allergy status to sulfonamides
CPT/HCPCS: 36415; 80053; 81000; 82947; 85025; 87088; 94640; 99283

== ENCOUNTER 2022-04-04 09:09 | Outpatient (RCR) | payer MEDICARE, MEDICAID ==
[~2022-04-04] VITALS: Ht 162.6 cm; Wt 67.3 kg
[~2022-04-04 09:09] MED LIST changes: +ERTA1VIA4 IM; +GABA300C PO; +TIOT4MIS3 IH; +TIZA-169
[2022-04-04] MEDS ORDERED: ERTAPENEM 1000 MG (INVanz) VIAL IM SCH (09:29)
[2022-04-04] MEDS ORDERED: LIDOCAINE 1% INJ 20 ML VIAL INJ SCH (09:30)
[2022-04-04 09:50] VITALS: BP 135/98
== END 2022-04-06 ==
LOC: SDC 09:09
PROVIDERS: ATTEND Internal Medicine
DX: N39.0 Urinary tract infection, site not specified (principal)
CPT/HCPCS: 96372

== ENCOUNTER 2022-04-05 09:18 | Emergency (ER) | payer MEDICARE, MEDICAID ==
[2022-04-05] MEDS ORDERED: ERTAPENEM 1000 MG (INVanz) VIAL IM NR (10:52)
--- NOTE | 2022-04-05 10:58 | ED General ---
General Chief Complaint: General Problems/Pain Stated Complaint: SOA Nursing Triage Note: PT ARRIVED TO ER FROM OUTPATIENT IN WITH C/O FEELING WEAK, TIRED AND HAVING A UTI. PT HAS RECEIVED ABX VIA IM THE PAST TWO DAYS AND WAS HERE FOR HER THIRD DOSE TODAY BUT DID NOT RECEIVE THAT. PT STATES SHE IS SUPPOSED TO BE ON 3L NC BUT CANNOT CARRY HER OXYGEN TANK Source of Information: Patient Exam Limitations: No Limitations History of Present Illness Date Seen by Provider: Apr 05, 2022 Time Seen by Provider: 10:37 Initial Comments Patient is here from outpatient services where she was to give a dose of ertapenem today. She lives in [place]. She came to the hospital without her oxygen and when she arrived at the same to surgery clinic, she was dyspneic and somewhat lethargic. She is post to be on 3 L via nasal cannula but she does not wear that in the truck because her smokes and he will stop smoking. She also would like to get her ostomy bag changed as the [facility] personnel will not change that for her. She is being dosed with ertapenem daily for 7 days. Denies any dysuria. States that she still feels weak but she has been this way for several days. She is typing on her phone currently. Her main other concern is changing the ostomy bag. Timing/Duration: 1/2 Hour Severity: Mild Associated Systoms: Shortness of Air, Weakness Allergies and Home Medications Allergies Coded Allergies: bacitracin (Verified Allergy, Intermediate, "I BREAK OUT IN A RASH ALL OVER.", 04/02/22) neomycin (Verified Allergy, Intermediate, "I BREAK OUT IN A RASH ALL OVER.", 04/02/22) polymyxin B (Verified Allergy, Intermediate, "I BREAK OUT IN A RASH ALL OVER.", 04/02/22) ibuprofen (Verified Allergy, Mild, RASH, 04/02/22) naproxen (Verified Allergy, Mild, RASH, 04/02/22) strawberry (Verified Allergy, Mild, 04/02/22) sulfamethoxazole (Verified Allergy, Unknown, 04/02/22) tramadol (Verified Allergy, Unknown, 04/02/22) trimethoprim (Verified Allergy, Unknown, 04/02/22) Patient Home Medication List Home Medication List Reviewed: Yes Albuterol Sulfate (Proventil Hfa) 90 Mcg Hfa.aer.ad, 2 PUFF INH Q6H PRN for WHEEZING, (Reported) Entered as Reported by: MICHAEL GARZA on 03/19/22 0857 Alosetron HCl (Alosetron HCl) 0.5 Mg Tablet, 0.5 MG PO BID, (Reported) Entered as Reported by: MICHAEL GARZA on 03/19/22 0857 Apixaban (Eliquis) 5 Mg Tablet, 5 MG PO BID, (Reported) Entered as Reported by: GRETA MANCILLA on 07/11/17 1530 Benzonatate (Tessalon Perles) 100 Mg Capsule, 200 MG PO Q8H PRN for cough Prescribed by: GINA GUTIERREZ on 02/10/22 1611 Buspirone HCl (Buspirone HCl) 15 Mg Tablet, 15 MG PO TID, (Reported) Entered as Reported by: SERENITY COPELAND on 11/08/21 1216 Clonazepam (Clonazepam) 1 Mg Tablet, 1 MG PO BID, (Reported) Entered as Reported by: JAMIE GOVEA on 04/20/19 1024 Cyclobenzaprine HCl (Cyclobenzaprine HCl) 10 Mg Tablet, 10 MG PO TID PRN for SPASMS, (Reported) Entered as Reported by: MICHAEL GARZA on 03/19/22 0857 Dapagliflozin Propanediol (Farxiga) 5 Mg Tablet, 5 MG PO DAILY, (Reported) Entered as Reported by: GRETA MANCILLA on 05/21/18 1455 Diltiazem HCl (Diltiazem HCl) 90 Mg Tablet, 90 MG PO TID, (Reported) Entered as Reported by: SERENITY COPELAND on 11/08/21 1132 Eluxadoline (Viberzi) 75 Mg Tablet, 75 MG PO BID, (Reported) Entered as Reported by: MICHAEL GARZA on 03/19/22 0857 Epinephrine (Epipen) 0.3 Mg/0.3 Ml Auto.injct, 0.3 MG IJ PRN, (Reported) Entered as Reported by: MICHAEL GARZA on 03/19/22 0857 Erenumab-Aooe (Aimovig Autoinjector) 70 Mg/1 Ml Auto.injct, 70 MG MONTHLY, (Reported) Entered as Reported by: SERENITY COPELAND on 12/30/19 1728 Ertapenem Sodium (Ertapenem) 1 Gram Vial, 1 GM IM DAILY Prescribed by: BAYLEE WHITE on 04/03/22 1029 Fludrocortisone Acetate (Fludrocortisone Acetate) 0.1 Mg Tab, 0.1 MG PO EVERY OTHER DAY, (Reported) Entered as Reported by: SERENITY COPELAND on 11/08/21 1132 Fluticasone Furoate (Flonase Sensimist) 27.5 Mcg/Actuation [place].susp, 2 SPRAYS NSEACH DAILY, (Reported) Entered as Reported by: MICHAEL GARZA on 03/19/22 0857 Gabapentin (Neurontin) 300 Mg Capsule, 900 MG PO TID, (Reported) Entered as Reported by: RADHA KATHLEEN on 04/03/22 1101 Ipratropium/Albuterol Sulfate (Iprat-Albut 0.5-3(2.5) mg/3 ml) 0.5 Mg-3 Mg (2.5 Mg Base)/3 Ml Ampul.neb, 3 ML IH Q6H PRN for SHORTNESS OF BREATH, (Reported) Entered as Reported by: MICHAEL GARZA on 03/19/22 0857 Lamotrigine (Lamotrigine) 25 Mg Tablet, 25 MG PO BID, (Reported) Entered as Reported by: SERENITY COPELAND on 11/08/21 113 Latanoprost (Xalatan) 0.005 % Drops, 1 DROP OU HS, (Reported) Entered as Reported by: SERENITY COPELAND on 11/08/21 1132 Levocetirizine Dihydrochloride (Levocetirizine Dihydrochloride) 5 Mg Tablet, 5 MG PO DAILY, (Reported) Entered as Reported by: URSZULA BELL on 05/14/18 0828 Lidocaine (Lidocaine) 4 % Adh..patch, 1 EACH TP DAILY, (Reported) Entered as Reported by: MICHAEL GARZA on 03/19/22 0857 Lipase/Protease/Amylase (Zenpep Dr 40,000 Units Capsule) 40-126-168 Capsule.dr, 2 EACH PO TID, (Reported) Entered as Reported by: MICHAEL GARZA on 03/19/22 0857 Meclizine HCl (Meclizine HCl) 25 Mg Tablet, 25 MG PO Q8H PRN for DIZZINESS, (Reported) Entered as Reported by: JESSICA GILMORE on 02/28/21 1353 Memantine HCl (Memantine HCl) 10 Mg Tablet, 10 MG PO DAILY, (Reported) Entered as Reported by: BIENVENIDO FARRELL on 07/28/15 1444 Montelukast Sodium (Montelukast Sodium) 10 Mg Tablet, 10 MG PO HS, (Reported) Entered as Reported by: SERENITY COPELAND on 11/08/21 1216 Naloxone HCl (Narcan) 4 Mg/Actuation [place], 4 MG NS PRN, (Reported) Entered as Reported by: MICHAEL GARZA on 03/19/22 0857 Nicotine (Nicotrol) 10 Mg Cartridge, INHALER NS UD PRN for SMOKING CESSATION, (Reported) Entered as Reported by: SERENITY COPELAND on 11/08/21 1132 Nitroglycerin (Nitroglycerin) 0.4 Mg Tab.subl, 0.4 MG SL UD PRN for CHEST PAIN (ANGINA), (Reported) Entered as Reported by: SERENITY COPELAND on 11/08/21 113 Oxycodone HCl (Roxicodone) 15 Mg Tablet, 15 MG PO Q6H PRN for PAIN-SEVERE (8-10) Prescribed by: BAYLEE WHITE on 04/03/22 1240 Pantoprazole Sodium (Pantoprazole Sodium) 40 Mg Tablet.dr, 40 MG PO DAILY, (Reported) Entered as Reported by: MICHAEL GARZA on 03/19/22 08 Primidone (Mysoline) 250 Mg Tablet, 250 MG PO BID, (Reported) Entered as Reported by: MICHAEL GARZA on 03/19/22 0857 Ropinirole HCl (Ropinirole HCl) 2 Mg Tablet, 4 MG PO HS, (Reported) Entered as Reported by: SERENITY COPELAND on 12/30/19 1728 Rosuvastatin Calcium (Rosuvastatin Calcium) 20 Mg Tablet, 20 MG PO DAILY, (Reported) Entered as Reported by: SERENITY COPELAND on 11/08/21 113 Suvorexant (Belsomra) 10 Mg Tablet, 10 MG PO HS, (Reported) Entered as Reported by: MICHAEL GARZA on 03/19/22 0857 Tiotropium Br/Olodaterol HCl (Stiolto Respimat Inhal [place]) 2.5 Mcg-2.5 Mcg/Actuation Mist.inhal, 4 GM IH DAILY, (Reported) Entered as Reported by: RADHA KATHLEEN on 04/03/22 1106 Trazodone HCl (Trazodone HCl) 100 Mg Tablet, 100 MG PO HS, (Reported) Entered as Reported by: MICHAEL GARZA on 03/19/22 0857 Discontinued Medications Aspirin (Aspirin) 81 Mg Tab.chew, 81 MG PO DAILY Discontinued Reason: No Longer Taking Prescribed by: MARY MILLER on 03/19/22 1110 Budesonide/Glycopyr/Formoterol (Breztri Aerosphere Inhaler) 160 Mcg-9 Mcg-4.8 Mcg/Actuation Hfa.aer.ad, 10.7 GM IH DAILY, (Reported) Discontinued Reason: No Longer Taking Entered as Reported by: MICHAEL GARZA on 03/19/22 0857 Cephalexin (Cephalexin) 500 Mg Tablet, 500 MG PO QID Discontinued Reason: No Longer Taking Prescribed by: ANTWAN PINEDA on 11/15/21 1528 Gabapentin (Gabapentin) 600 Mg Tablet, 600 MG PO TID, (Reported) Discontinued Reason: Prescription changed Entered as Reported by: SERENITY COPELAND on 11/08/21 1132 Gentamicin Sulfate (Gentamicin Sulfate) 0.3 % Drops, 5 ML OP DAILY, (Reported) Discontinued Reason: No Longer Taking Entered as Reported by: MICHAEL GARZA on 03/19/22 0857 Isosorbide Mononitrate (Isosorbide Mononitrate ER) 120 Mg Tab.er.24h, 120 MG PO DAILY, (Reported) Discontinued Reason: New Order Entered as Reported by: MICHAEL GARZA on 03/19/22 0857 Levofloxacin (Levofloxacin) 500 Mg Tablet, 500 MG PO DAILY Discontinued Reason: No Longer Taking Prescribed by: Malcolm White on 03/24/22 1645 Metoprolol Succinate (Metoprolol Succinate) 50 Mg Tab.er.24h, 50 MG PO DAILY, (Reported) Discontinued Reason: No Longer Taking Entered as Reported by: JESSICA GILMORE on 02/28/21 1353 Tizanidine HCl (Tizanidine HCl) 2 Mg Tablet, 2 MG BID PRN for MUSCLE SPASMS, (Reported) Discontinued Reason: New Order Entered as Reported by: RADHA KATHLEEN on 04/03/22 1036 Review of Systems Review of Systems Constitutional: No chills, No fever EENTM: No nose congestion, No throat pain Respiratory: cough (Chronic), short of breath Genitourinary: see HPI, other (Urostomy right lower quadrant) Psychiatric/Neurological: Denies Headache; Weakness Past Rihwhbu-Sddfwj-Cobgpq Hx Patient Social History Tobacco Use?: Yes Tobacco type used: Cigarettes Substance use?: No Alcohol Use?: No Pt feels they are or have been: No Immunizations Up To Date Tetanus Booster (TDap): Unknown PED Vaccines UTD: No First/Initial COVID19 Vaccinat: UNKNOWN Second COVID19 Vaccination Hugo: UNKNOWN Third COVID19 Vaccination Date: UNKNOWN Seasonal Allergies Seasonal Allergies: Yes Past Medical History Surgery/Hospitalization HX: PMH;HF, COPD, AND STROKE HX., PALPATATIONS SURGERY; COLOSTOMY, TUABL, AND EXPLORATORY, HEART CATH(03/28) Surgeries: Yes Cystectomy, Gallbladder, Orthopedic, Pancreatic Respiratory: Yes (HOME 02) COPD, Emphysema Currently Using CPAP: No Currently Using BIPAP: No Cardiac: Yes High Cholesterol, Irregular Heartbeat, Palpitations Neurological: Yes Seizure Disorder, TIA 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 Disorders: No 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 Disorders: Denies [employer]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 Sexually Transmitted Disease: No HIV/AIDS: No Genitourinary: Yes UTI-Chronic Gastrointestinal: Yes Gastroesophageal Reflux, Chronic Diarrhea Musculoskeletal: Yes (CERVICAL SUGERY) Arthritis, Back Injury Endocrine: Yes Diabetes, Non-Insulin dep HEENT: Yes (LEFT EAR HEARING IMPAIRMENT) Cataract Loss of Vision: Denies Hearing Impairment: Hard of Hearing Cancer: Yes Bladder Did You Recieve Any Treatments: Yes What Type of Treatment Did You: Surgical Intervention Psychosocial: No Anxiety, Depression Integumentary: No Psoriasis Blood Disorders: No Adverse Reaction/Blood Tranf: No Family Medical History Reviewed Nursing Family Hx Cardiovascular disease G8 BROTHER (TRIPLE BYPASS) Diabetes mellitus 19 MOTHER FH: COPD (chronic obstructive pulmonary disease) 19 MOTHER FH: breast cancer 19 MOTHER FHx: brain cancer 19 FATHER No Pertinent Family Hx Physical Exam Vital Signs Vital Signs - First Documented 04/05/22 04/05/22 09:20 09:27 Temp 35.7 Pulse 86 Resp 20 B/P (MAP) 125/69 (87) Pulse Ox 94 O2 Delivery Nasal Cannula O2 Flow Rate 3.00 Capillary Refill : Height, Weight, BMI Height: 5'4.00" Weight: 165lbs. 0.0oz. [id number]; 25.64 BMI Method:Stated General Appearance: No Apparent Distress, WD/WN Respiratory: Lungs Clear, Normal Breath Sounds Cardiovascular: Regular Rate, Rhythm, No Murmur Gastrointestinal: Non Tender, Soft Neurologic/Psychiatric: Alert, Oriented x3 Skin: Normal Color, Warm/Dry Progress/Results/Core Measures Suspected Sepsis SIRS Temperature: Pulse: 86 Respiratory Rate: 20 Blood Pressure 125 /69 Mean: 87 Results/Orders My Orders Orders - CRISTIANE MCWILLIAMS MD Ertapenem (Non-Formulary) (Invanz (Non-F (04/05/22 10:52) Lidocaine 1% Inj 20 Ml (Xylocaine 1% Inj (04/05/22 11:15) Medications Given in ED Current Medications Medications Dose Ordered Sig/[place] Route Start Time Stop Time Status Last Admin Dose Admin Lidocaine HCl 3.2 ml ONCE ONCE INJ 04/05/22 11:15 04/05/22 11:16 DC 04/05/22 11:09 3.2 ML Vital Signs/I&O 04/05/22 04/05/22 09:20 09:27 Temp 35.7 Pulse 86 Resp 20 B/P (MAP) 125/69 (87) Pulse Ox 94 O2 Delivery Nasal Cannula Nasal Cannula O2 Flow Rate 3.00 Capillary Refill : Blood Pressure Mean: 87 Progress Note : Progress Note Seen and evaluated. I did review outside order for management of possible urinary tract infection. She is on ertapenem 1 g daily for 7 days which was started yesterday. This is to be added to 3.2 mL of lidocaine for IM injection. I did discuss the case with Dr. White, she is the ordering physician. I did let her know that the patient was here and that we will go ahead and give the injection here but also discussed the difficulties that she is having with transport due to oxygen needs. We will go ahead and do the ertapenem IM and also change ostomy bag and patient will continue on previous schedule for ertapenem. No indication for anything different currently as patient is normal vital signs on her typical 3 L of oxygen. No new orders from Dr. White. 1131: Ertapenem given and ostomy bag changed. Discharged home with return precaution. Patient verbalized understanding instructions and agreement with plan. Departure Impression Primary Impression: COPD (chronic obstructive pulmonary disease) Qualified Codes: J44.9 - Chronic obstructive pulmonary disease, unspecified Additional Impression: Oxygen dependent Disposition: HOME, SELF-CARE Condition: Improved Departure-Patient Inst. Decision time for Depature: 11:32 Referrals: SERENITY LONG DO (PCP/Family) Primary Care Physician Patient Instructions: Chronic Obstructive Pulmonary Disease (COPD) (DC) Add. Discharge Instructions: All discharge instructions reviewed with patient and/or family. Voiced understanding. You should continue to use your oxygen at all times as prescribed. Discussed with your oxygen provider company about getting smaller bottles to ease transpor t. When your is transporting, you should wear your oxygen and he should not smoke. You should continue the antibiotic dosing as previously scheduled in the outpatient clinic. Return for weakness, breathing problems, fever or other concerns as needed. CRISTIANE MCWILLIAMS MD Apr 05, 2022 10:58
[2022-04-05] MEDS ORDERED: LIDOCAINE 1% INJ 20 ML VIAL INJ ONE (11:15)
[2022-04-05 11:35] VITALS: BP 126/74
== END 2022-04-05 11:37 | disposition home or self-care (01) ==
LOC: EDUNIT# 09:18 → ER 09:19
DX: J44.9 Chronic obstructive pulmonary disease, unspecified (principal); F17.210 Nicotine dependence, cigarettes, uncomplicated; Z99.81 Dependence on supplemental oxygen
CPT/HCPCS: 99284

== ENCOUNTER 2022-04-06 09:04 | Emergency (ER) | payer MEDICARE, MEDICAID ==
[~2022-04-06] VITALS: Ht 162.6 cm; Wt 66.2 kg
[2022-04-06 09:56] LABS: BASOPHILS % (AUTO) 1 % (0-10); EOSINOPHILS # (AUTO) 0.2 10^3/uL (0.0-0.3); EOSINOPHILS % (AUTO) 4 % (0-10); HEMATOCRIT 39 % (35-52); HEMOGLOBIN 12.4 g/dL (11.5-16.0); LYMPHOCYTES # (AUTO) 1.5 10^3/uL (1.0-4.0); LYMPHOCYTES % (AUTO) 34 % (12-44); MEAN CORPUSCULAR HEMOGLOBIN 30 pg (25-34); MEAN CORPUSCULAR HGB CONC 32 g/dL (32-36); MEAN CORPUSCULAR VOLUME 92 fL (80-99); MEAN PLATELET VOLUME 10.1 fL (9.0-12.2); MONOCYTES # (AUTO) 0.5 10^3/uL (0.0-1.0); MONOCYTES % (AUTO) 12 % (0-12); NEUTROPHILS # (AUTO) 2.2 10^3/uL (1.8-7.8); NEUTROPHILS % (AUTO) 49 % (42-75); PLATELET COUNT 177 10^3/uL (130-400); WHITE BLOOD COUNT 4.4 10^3/uL (4.3-11.0)
[2022-04-06 10:03] LABS: ALBUMIN 3.9 GM/DL (3.2-4.5)
[2022-04-06 10:04] LABS: POTASSIUM 4.2 MMOL/L (3.6-5.0)
[2022-04-06 10:05] LABS: CALCIUM 10.3 MG/DL (8.5-10.1)
[2022-04-06 10:06] LABS: TOTAL PROTEIN 6.5 GM/DL (6.4-8.2)
[2022-04-06 10:08] LABS: BILIRUBIN,TOTAL 0.2 MG/DL (0.1-1.0)
[2022-04-06 10:10] LABS: CREATININE SERUM 0.69 MG/DL (0.60-1.30)
[2022-04-06 10:13] LABS: MAGNESIUM 2.1 MG/DL (1.6-2.4)
[2022-04-06] MEDS ORDERED: LACTATED RINGERS 1,000 ML IV ONE (10:15)
--- NOTE | 2022-04-06 10:28 | ED General ---
General Chief Complaint: Dizziness/Syncope Stated Complaint: WEAKNESS Nursing Triage Note: PT TO ROOM 07 VIA W/C WITH C/O DIZZYNESS, CONFUSION, ABD PAIN. PT WEARS HOME O2 AT 4LPM. PT WAS NOT WEARING HOME O2 UPON ARRIVAL. PT SENT FROM [facility] FOR CURRENT C/O. PT STATES FORGOT TO PUT HOME O2 IN TRUCK. STATES PT HAS O2 TANKS AT HOME AND DID NOT GIVE A REASON FOR PT NOT WEARING HOME O2. PT ABLE TO ANSWER ALL QUESTIONS DURING TRIAGE. Source of Information: Patient, Old Records Exam Limitations: Other (Confusion) History of Present Illness Date Seen by Provider: Apr 06, 2022 Time Seen by Provider: 09:30 Allergies and Home Medications Allergies Coded Allergies: bacitracin (Verified Allergy, Intermediate, "I BREAK OUT IN A RASH ALL OVER.", 04/02/22) neomycin (Verified Allergy, Intermediate, "I BREAK OUT IN A RASH ALL OVER.", 04/02/22) polymyxin B (Verified Allergy, Intermediate, "I BREAK OUT IN A RASH ALL OVER.", 04/02/22) ibuprofen (Verified Allergy, Mild, RASH, 04/02/22) naproxen (Verified Allergy, Mild, RASH, 04/02/22) strawberry (Verified Allergy, Mild, 04/02/22) sulfamethoxazole (Verified Allergy, Unknown, 04/02/22) tramadol (Verified Allergy, Unknown, 04/02/22) trimethoprim (Verified Allergy, Unknown, 04/02/22) Patient Home Medication List Albuterol Sulfate (Proventil Hfa) 90 Mcg Hfa.aer.ad, 2 PUFF INH Q6H PRN for WHEEZING, (Reported) Entered as Reported by: MICHAEL GARZA on 03/19/22 0857 Alosetron HCl (Alosetron HCl) 0.5 Mg Tablet, 0.5 MG PO BID, (Reported) Entered as Reported by: MICHAEL GARZA on 03/19/22 0857 Apixaban (Eliquis) 5 Mg Tablet, 5 MG PO BID, (Reported) Entered as Reported by: GRETA MANCILLA on 07/11/17 1530 Benzonatate (Tessalon Perles) 100 Mg Capsule, 200 MG PO Q8H PRN for cough Prescribed by: GINA GUTIERREZ on 02/10/22 1611 Buspirone HCl (Buspirone HCl) 15 Mg Tablet, 15 MG PO TID, (Reported) Entered as Reported by: SERENITY COPELAND on 11/08/21 1216 Clonazepam (Clonazepam) 1 Mg Tablet, 1 MG PO BID, (Reported) Entered as Reported by: JAMIE GOVEA on 04/20/19 1024 Cyclobenzaprine HCl (Cyclobenzaprine HCl) 10 Mg Tablet, 10 MG PO TID PRN for SPASMS, (Reported) Entered as Reported by: MICHAEL GARZA on 03/19/22 0857 Dapagliflozin Propanediol (Farxiga) 5 Mg Tablet, 5 MG PO DAILY, (Reported) Entered as Reported by: GRETA MANCILLA on 05/21/18 1455 Diltiazem HCl (Diltiazem HCl) 90 Mg Tablet, 90 MG PO TID, (Reported) Entered as Reported by: SERENITY COPELAND on 11/08/21 1132 Eluxadoline (Viberzi) 75 Mg Tablet, 75 MG PO BID, (Reported) Entered as Reported by: MICHAEL GARZA on 03/19/22 0857 Epinephrine (Epipen) 0.3 Mg/0.3 Ml Auto.injct, 0.3 MG IJ PRN, (Reported) Entered as Reported by: MICHAEL GARZA on 03/19/22 0857 Erenumab-Aooe (Aimovig Autoinjector) 70 Mg/1 Ml Auto.injct, 70 MG MONTHLY, (Reported) Entered as Reported by: SERENITY COPELAND on 12/30/19 1728 Ertapenem Sodium (Ertapenem) 1 Gram Vial, 1 GM IM DAILY Prescribed by: BAYLEE WHITE on 04/03/22 1029 Fludrocortisone Acetate (Fludrocortisone Acetate) 0.1 Mg Tab, 0.1 MG PO EVERY OTHER DAY, (Reported) Entered as Reported by: SERENITY COPELAND on 11/08/21 1132 Fluticasone Furoate (Flonase Sensimist) 27.5 Mcg/Actuation [place].susp, 2 SPRAYS NSEACH DAILY, (Reported) Entered as Reported by: MICHAEL GARZA on 03/19/22 0857 Gabapentin (Neurontin) 300 Mg Capsule, 900 MG PO TID, (Reported) Entered as Reported by: RADHA KATHLEEN on 04/03/22 1101 Ipratropium/Albuterol Sulfate (Iprat-Albut 0.5-3(2.5) mg/3 ml) 0.5 Mg-3 Mg (2.5 Mg Base)/3 Ml Ampul.neb, 3 ML IH Q6H PRN for SHORTNESS OF BREATH, (Reported) Entered as Reported by: MICHAEL GARZA on 03/19/22 0857 Lamotrigine (Lamotrigine) 25 Mg Tablet, 25 MG PO BID, (Reported) Entered as Reported by: SERENITY COPELAND on 11/08/21 1132 Latanoprost (Xalatan) 0.005 % Drops, 1 DROP OU HS, (Reported) Entered as Reported by: SERENITY COPELAND on 11/08/21 1132 Levocetirizine Dihydrochloride (Levocetirizine Dihydrochloride) 5 Mg Tablet, 5 MG PO DAILY, (Reported) Entered as Reported by: URSZULA BELL on 05/14/18 0828 Lidocaine (Lidocaine) 4 % Adh..patch, 1 EACH TP DAILY, (Reported) Entered as Reported by: MICHAEL GARZA on 03/19/22 0857 Lipase/Protease/Amylase (Zenpep Dr 40,000 Units Capsule) [id number] Capsule.dr, 2 EACH PO TID, (Reported) Entered as Reported by: MICHAEL GARZA on 03/19/22 0857 Meclizine HCl (Meclizine HCl) 25 Mg Tablet, 25 MG PO Q8H PRN for DIZZINESS, (Reported) Entered as Reported by: JESSICA GILMORE on 02/28/21 1353 Memantine HCl (Memantine HCl) 10 Mg Tablet, 10 MG PO DAILY, (Reported) Entered as Reported by: BIENVENIDO FARRELL on 07/28/15 1444 Montelukast Sodium (Montelukast Sodium) 10 Mg Tablet, 10 MG PO HS, (Reported) Entered as Reported by: SERENITY COPELAND on 11/08/21 1216 Naloxone HCl (Narcan) 4 Mg/Actuation [place], 4 MG NS PRN, (Reported) Entered as Reported by: MICHAEL GARZA on 03/19/22 0857 Nicotine (Nicotrol) 10 Mg Cartridge, INHALER NS UD PRN for SMOKING CESSATION, (Reported) Entered as Reported by: SERENITY COPELAND on 11/08/21 1132 Nitroglycerin (Nitroglycerin) 0.4 Mg Tab.subl, 0.4 MG SL UD PRN for CHEST PAIN (ANGINA), (Reported) Entered as Reported by: SERENITY COPELAND on 11/08/21 1132 Oxycodone HCl (Roxicodone) 15 Mg Tablet, 15 MG PO Q6H PRN for PAIN-SEVERE (8-10) Prescribed by: BAYLEE WHITE on 04/03/22 1240 Pantoprazole Sodium (Pantoprazole Sodium) 40 Mg Tablet.dr, 40 MG PO DAILY, (Reported) Entered as Reported by: MICHAEL GARZA on 03/19/22 08 Primidone (Mysoline) 250 Mg Tablet, 250 MG PO BID, (Reported) Entered as Reported by: MICHAEL GARZA on 03/19/22 08 Ropinirole HCl (Ropinirole HCl) 2 Mg Tablet, 4 MG PO HS, (Reported) Entered as Reported by: SERENITY COPELAND on 12/30/19 1728 Rosuvastatin Calcium (Rosuvastatin Calcium) 20 Mg Tablet, 20 MG PO DAILY, (Reported) Entered as Reported by: SERENITY COPELAND on 11/08/21 113 Suvorexant (Belsomra) 10 Mg Tablet, 10 MG PO HS, (Reported) Entered as Reported by: MICHAEL GARZA on 03/19/22 08 Tiotropium Br/Olodaterol HCl (Stiolto Respimat Inhal [place]) 2.5 Mcg-2.5 Mcg/Actuation Mist.inhal, 4 GM IH DAILY, (Reported) Entered as Reported by: RADHA KATHLEEN on 04/03/22 1106 Trazodone HCl (Trazodone HCl) 100 Mg Tablet, 100 MG PO HS, (Reported) Entered as Reported by: MICHAEL GARZA on 03/19/22 08 Discontinued Medications Aspirin (Aspirin) 81 Mg Tab.chew, 81 MG PO DAILY Discontinued Reason: No Longer Taking Prescribed by: MARY MILLER on 03/19/22 1110 Budesonide/Glycopyr/Formoterol (Breztri Aerosphere Inhaler) 160 Mcg-9 Mcg-4.8 Mcg/Actuation Hfa.aer.ad, 10.7 GM IH DAILY, (Reported) Discontinued Reason: No Longer Taking Entered as Reported by: MICHAEL GARZA on 03/19/22 0857 Cephalexin (Cephalexin) 500 Mg Tablet, 500 MG PO QID Discontinued Reason: No Longer Taking Prescribed by: ANTWAN PINEDA on 11/15/21 1528 Gabapentin (Gabapentin) 600 Mg Tablet, 600 MG PO TID, (Reported) Discontinued Reason: Prescription changed Entered as Reported by: SERENITY COPELAND on 11/08/21 1132 Gentamicin Sulfate (Gentamicin Sulfate) 0.3 % Drops, 5 ML OP DAILY, (Reported) Discontinued Reason: No Longer Taking Entered as Reported by: MICHAEL GARZA on 03/19/22 0857 Isosorbide Mononitrate (Isosorbide Mononitrate ER) 120 Mg Tab.er.24h, 120 MG PO DAILY, (Reported) Discontinued Reason: New Order Entered as Reported by: MICHAEL GARZA on 03/19/22 0857 Levofloxacin (Levofloxacin) 500 Mg Tablet, 500 MG PO DAILY Discontinued Reason: No Longer Taking Prescribed by: Malcolm White on 03/24/22 1645 Metoprolol Succinate (Metoprolol Succinate) 50 Mg Tab.er.24h, 50 MG PO DAILY, (Reported) Discontinued Reason: No Longer Taking Entered as Reported by: JESSICA GILMORE on 02/28/21 1353 Tizanidine HCl (Tizanidine HCl) 2 Mg Tablet, 2 MG BID PRN for MUSCLE SPASMS, (Reported) Discontinued Reason: New Order Entered as Reported by: RADHA KATHLEEN on 04/03/22 1036 Past Matoziy-Vzqhnj-Mgwdry Hx Patient Social History Tobacco Use?: Yes Smoking Status: Heavy Tobacco Smoker Smokeless Tobacco Frequency: Never a User Use of E-Cig and/or Vaping dev: No Use of E-Cig and/or Vaping Jose: Never a User Substance use?: No Alcohol Use?: No Pt feels they are or have been: No Immunizations Up To Date Tetanus Booster (TDap): Unknown PED Vaccines UTD: No First/Initial COVID19 Vaccinat: UNKNOWN Second COVID19 Vaccination Hugo: UNKNOWN Third COVID19 Vaccination Date: UNKNOWN Seasonal Allergies Seasonal Allergies: Yes Past Medical History Surgery/Hospitalization HX: PMH;HF, COPD, AND STROKE HX., PALPATATIONS SURGERY; COLOSTOMY, TUABL, AND EXPLORATORY, HEART CATH(03/28) Surgeries: Yes Cystectomy, Gallbladder, Orthopedic, Pancreatic Respiratory: Yes (HOME 02) COPD, Emphysema Currently Using CPAP: No Currently Using BIPAP: No Cardiac: Yes High Cholesterol, Irregular Heartbeat, Palpitations Neurological: Yes Seizure Disorder, TIA 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 Disorders: No 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 Disorders: Denies 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 Sexually Transmitted Disease: No HIV/AIDS: No Genitourinary: Yes UTI-Chronic Gastrointestinal: Yes Gastroesophageal Reflux, Chronic Diarrhea Musculoskeletal: Yes (CERVICAL SUGERY) Arthritis, Back Injury Endocrine: Yes Diabetes, Non-Insulin dep HEENT: Yes (LEFT EAR HEARING IMPAIRMENT) Cataract Loss of Vision: Denies Hearing Impairment: Hard of Hearing Cancer: Yes Bladder Did You Recieve Any Treatments: Yes What Type of Treatment Did You: Surgical Intervention Psychosocial: No Anxiety, Depression Integumentary: No Psoriasis Blood Disorders: No Adverse Reaction/Blood Tranf: No Family Medical History Cardiovascular disease G8 BROTHER (TRIPLE BYPASS) Diabetes mellitus 19 MOTHER FH: COPD (chronic obstructive pulmonary disease) 19 MOTHER FH: breast cancer 19 MOTHER FHx: brain cancer 19 FATHER No Pertinent Family Hx Physical Exam Vital Signs Vital Signs - First Documented 04/06/22 09:06 Temp 35.8 Pulse 84 Resp 15 B/P (MAP) 101/77 (85) Pulse Ox 96 O2 Delivery Nasal Cannula O2 Flow Rate 4.00 Capillary Refill : Less Than 3 Seconds Height, Weight, BMI Height: 5'4.00" Weight: 165lbs. 0.0oz. 72.206481ql; 25.00 BMI Method:Stated Progress/Results/Core Measures Suspected Sepsis SIRS Temperature: Pulse: 84 Respiratory Rate: 15 Laboratory Tests 04/06/22 09:51: White Blood Count 4.4 Blood Pressure 101 /77 Mean: 85 Laboratory Tests 04/06/22 09:51: Creatinine 0.69, Platelet Count 177, Total Bilirubin 0.2 Results/Orders Lab Results Laboratory Tests Test 04/06/22 09:51 04/06/22 10:40 04/06/22 11:51 Range/Units White Blood Count 4.4 4.3-11.0 10^3/uL Red Blood Count 4.21 3.80-5.11 10^6/uL Hemoglobin 12.4 11.5-16.0 g/dL Hematocrit 39 35-52 % Mean Corpuscular Volume 92 80-99 fL Mean Corpuscular Hemoglobin 30 25-34 pg Mean Corpuscular Hemoglobin Concent 32 32-36 g/dL Red Cell Distribution Width 16.8 H 10.0-14.5 % Platelet Count 177 130-400 10^3/uL Mean Platelet Volume 10.1 9.0-12.2 fL Immature Granulocyte % (Auto) 0 % Neutrophils (%) (Auto) 49 42-75 % Lymphocytes (%) (Auto) 34 12-44 % Monocytes (%) (Auto) 12 0-12 % Eosinophils (%) (Auto) 4 0-10 % Basophils (%) (Auto) 1 0-10 % Neutrophils # (Auto) 2.2 1.8-7.8 10^3/uL Lymphocytes # (Auto) 1.5 1.0-4.0 10^3/uL Monocytes # (Auto) 0.5 0.0-1.0 10^3/uL Eosinophils # (Auto) 0.2 0.0-0.3 10^3/uL Basophils # (Auto) 0.0 0.0-0.1 10^3/uL Immature Granulocyte # (Auto) 0.0 0.0-0.1 10^3/uL Sodium Level 141 135-145 MMOL/L Potassium Level 4.2 3.6-5.0 MMOL/L Chloride Level 105 98-107 MMOL/L Carbon Dioxide Level 26 21-32 MMOL/L Anion Gap 10 5-14 MMOL/L Blood Urea Nitrogen 13 7-18 MG/DL Creatinine 0.69 0.60-1.30 MG/DL Estimat Glomerular Filtration Rate 94 BUN/Creatinine Ratio 19 Glucose Level 109 H 70-105 MG/DL Calcium Level 10.3 H 8.5-10.1 MG/DL Corrected Calcium 10.4 H 8.5-10.1 MG/DL Magnesium Level 2.1 1.6-2.4 MG/DL Total Bilirubin 0.2 0.1-1.0 MG/DL Aspartate Amino Transf (AST/SGOT) 32 5-34 U/L Alanine Aminotransferase (ALT/SGPT) 27 0-55 U/L Alkaline Phosphatase 76 40-136 U/L C-Reactive Protein High Sensitivity 1.67 H 0.00-0.50 MG/DL Total Protein 6.5 6.4-8.2 GM/DL Albumin 3.9 3.2-4.5 GM/DL Lipase 47 8-78 U/L Blood Gas Puncture Site R RAD Blood Gas Patient Temperature 36.8 Arterial Blood pH 7.40 7.37-7.43 Arterial Blood Partial Pressure CO2 47 H 35-45 MMHG Arterial Blood Partial Pressure O2 81 79-93 MMHG Arterial Blood HCO3 28 H 23-27 MMOL/L Arterial Blood Total CO2 29.7 21.0-31.0 MMOL/L Arterial Blood Oxygen Saturation 96 94-100 % Arterial Blood Base Excess 3.7 H -2.5-2.5 MMOL/L Aamir Test NA Blood Gas Ventilator Setting NO Blood Gas Inspired Oxygen 4 Urine Color YELLOW Urine Clarity CLOUDY Urine pH 6.5 5-9 Urine Specific Williamson 1.020 1.016-1.022 Urine Protein TRACE H NEGATIVE Urine Glucose (UA) 1+ H NEGATIVE Urine Ketones NEGATIVE NEGATIVE Urine Nitrite POSITIVE H NEGATIVE Urine Bilirubin NEGATIVE NEGATIVE Urine Urobilinogen 0.2 < = 1.0 MG/DL Urine Leukocyte Esterase 2+ H NEGATIVE Urine RBC (Auto) 1+ H NEGATIVE Urine RBC RARE /HPF Urine WBC 5-10 H /HPF Urine Crystals PRESENT H /LPF Urine Calcium Oxalate Crystals RARE H /LPF Urine Bacteria FEW H /HPF Urine Casts NONE /LPF Urine Mucus NEGATIVE /LPF Urine Yeast MODERATE H /HPF Urine Culture Indicated YES My Orders Orders - DAVIDSON MANDEL MD Cbc With Automated Diff (04/06/22 09:30) Comprehensive Metabolic Panel (04/06/22 09:30) Magnesium (04/06/22 09:30) Ed Iv/Invasive Line Start (04/06/22 09:30) Lactated Ringers (Lr 1000 Ml Iv Solution (04/06/22 10:15) Ua Culture If Indicated (04/06/22 10:15) Hs C Reactive Protein (04/06/22 10:17) Arterial Blood Gas (04/06/22 10:42) Urine Culture (04/06/22 11:51) Fentanyl Inj (Sublimaze Injection) (04/06/22 14:00) Ct Abdomen/Pelvis W (04/06/22 13:49) Lipase (04/06/22 13:50) Ertapenem (Non-Formulary) (Invanz (Non-F (04/07/22 09:00) Iohexol Injection (Omnipaque 350 Mg/Ml 1 (04/06/22 14:00) Received Contrast (Hold Metformin- Contr (04/06/22 14:00) Ns (Ivpb) (Sodium Chloride 0.9% Ivpb Bag (04/06/22 14:00) Medications Given in ED Current Medications Medications Dose Ordered Sig/[place] Route Start Time Stop Time Status Last Admin Dose Admin Ertapenem 1000 mg/ Sodium Chloride 50 ml @ 100 mls/hr DAILY ONCE IV 04/07/22 09:00 04/07/22 09:29 04/06/22 15:01 100 MLS/HR Fentanyl Citrate 50 mcg ONCE ONCE IVP 04/06/22 14:00 04/06/22 14:01 DC 04/06/22 15:01 50 MCG Iohexol 100 ml ONCE ONCE IV 04/06/22 14:00 04/06/22 14:01 DC 04/06/22 14:34 77 ML Lactated Ringer's 1,000 ml @ 0 mls/hr Q0M ONCE IV 04/06/22 10:15 04/06/22 10:16 DC 04/06/22 10:30 999 MLS/HR Sodium Chloride 100 ml ONCE ONCE IV 04/06/22 14:00 04/06/22 14:01 DC 04/06/22 14:34 80 ML Vital Signs/I&O 04/06/22 04/06/22 09:06 09:06 Temp 35.8 Pulse 84 Resp 15 B/P (MAP) 101/77 (85) Pulse Ox 96 O2 Delivery Nasal Cannula Nasal Cannula O2 Flow Rate 4.00 4.00 Capillary Refill : Less Than 3 Seconds Blood Pressure Mean: 85 Progress Note : Time: 10:27 Progress Note Lab evaluation is relatively unremarkable. Patient does have history of COPD and takes sedating medications. Hypercarbia could explain her altered mental status and weakness. ABG is pending. We will also check a UA to help evaluate the status of her UTI treatment. Patient's mucous membranes were very dry. A liter of LR is being infused. Diagnostic Imaging Diagonstic Imaging: Xray Plain Films/CT/US/NM/MRI: abdomen, pelvis Comments CT abdomen pelvis viewed by me and report reviewed. See report below: NAME: [facility] REC#: [id number] PT STATUS: REG ER : 1955 PHYSICIAN: DAVIDSON MANDEL MD ADMIT DATE: 04/06/22/ER Draft Date of Exam:04/06/22 CT ABDOMEN/PELVIS W PROCEDURE: CT abdomen and pelvis with contrast. TECHNIQUE: Multiple contiguous axial images were obtained through the abdomen and pelvis after administration of intravenous contrast. Auto Exposure Controls were utilized during the CT exam to meet ALARA standards for radiation dose reduction. All CT scans use one or more of the following dose optimizing techniques: automated exposure control, MA and/or KvP adjustment based on patient size and exam type or iterative reconstruction. INDICATION: Abdominal pain FINDINGS: There are bibasal pulmonary infiltrates suspect for pneumonia. The heart size is normal. The liver is normal in size without focal lesions. Gallbladder is surgically absent. No biliary duct dilatation. Spleen is normal. There is some prominence of the common bile duct likely due to previous cholecystectomy. The adrenal glands are unremarkable. Kidneys normal. There is moderate atherosclerotic calcification of the aorta. The bowel gas pattern is nonspecific. There is right lower quadrant ostomy. There is no pelvic mass or adenopathy although the evaluation of pelvic structures is limited due to bilateral hip arthroplasties. There is no free air. There is no ascites. IMPRESSION: Bibasilar pulmonary consolidations left greater than right suspect for pneumonia. Previous cholecystectomy with prominence of the common bile duct likely due to prior gallbladder removal. Nonspecific bowel gas pattern with right lower quadrant ostomy. Dictated on workstation # [id number] Dict: 04/06/22 1434 Trans: 04/06/22 1446 [facility] [id number] Interpreted by: TOMY DECKER MD Departure Impression Primary Impression: Altered mental status Qualified Codes: R41.0 - Disorientation, unspecified Additional Impressions: Generalized weakness Urinary tract infection Qualified Codes: N39.0 - Urinary tract infection, site not specified Disposition: HOME, SELF-CARE Condition: Improved Departure-Patient Inst. Decision time for Depature: 16:11 Referrals: SERENITY LONG DO (PCP/Family) Primary Care Physician Patient Instructions: Delirium (Confusion) (DC) Add. Discharge Instructions: Call your doctor on Friday or Friday to schedule a follow-up for medication review. Bring all of your medications in their original marked bottles to that appointment to review with your doctor. There is concern about numerous sedating medications on your medication list. These medications in combination may be causing your symptoms. Dr. Mandel recommends stopping Belsomra as an initial step in changing your medications to reduce sedation and confusion. Then discussed with your primary care doctor in follow-up. Use caution when getting up and walking. Get assistance from another individual or use a walker if needed for stability. Continue your scheduled injections for treatment of urinary tract infection. Use your oxygen continuously as previously prescribed and bring your portable oxygen with you when you leave the home. Continue your other medications as previously directed, but stop Belsomra. Return to the emergency room if you have worsening symptoms despite following these instructions. All discharge instructions reviewed with patient and/or family. Voiced understanding. DAVIDSON MANDEL MD Apr 06, 2022 10:28
[2022-04-06 10:47] LABS: ABG BASE EXCESS 3.7 MMOL/L (-2.5-2.5); ABG OXYGEN SATURATION 96 % (94-100); ABG PCO2 47 MMHG (35-45); ABG PO2 81 MMHG (79-93); ABG TCO2 29.7 MMOL/L (21.0-31.0); INSPIRED O2 4; PATIENT TEMP 36.8; VENTILATOR NO
[2022-04-06 12:04] LABS: BILIRUBIN,URINE NEGATIVE (NEGATIVE); CLARITY,URINE CLOUDY; COLOR,URINE YELLOW; GLUCOSE, URINE (UA) 1+ (NEGATIVE); KETONES,URINE NEGATIVE (NEGATIVE); LEUKOCYTE ESTERASE ,URINE 2+ (NEGATIVE); NITRITE,URINE POSITIVE (NEGATIVE); PH,URINE 6.5 (5-9); PROTEIN,URINE TRACE (NEGATIVE)
[2022-04-06 12:11] LABS: BACTERIA,URINE FEW /HPF; CALCIUM OXALATE CRYSTALS,UR RARE /LPF; RBC,URINE RARE /HPF
[2022-04-06 12:12] LABS: YEAST,URINE MODERATE /HPF
[2022-04-06] MEDS ORDERED: IOHEXOL 350 MG/ML 100 ML (OMNIPAQUE 350) VIAL IV ONE (14:00)
[2022-04-06] MEDS ORDERED: NS 100 ML (IVPB) BAG IV ONE (14:00)
[2022-04-06] MEDS ORDERED: HOLD METFORMIN - RECEIVED CONTRAST 20 ML VIAL IV SCH (14:00)
[2022-04-06] MEDS ORDERED: fentaNYL INJ 100 MCG/2 ML AMP IVP ONE (14:00)
--- NOTE | 2022-04-06 14:47 | Diagnostic Imaging Report ---
PROCEDURE: CT abdomen and pelvis with contrast. TECHNIQUE: Multiple contiguous axial images were obtained through the abdomen and pelvis after administration of intravenous contrast. Auto Exposure Controls were utilized during the CT exam to meet ALARA standards for radiation dose reduction. All CT scans use one or more of the following dose optimizing techniques: automated exposure control, MA and/or KvP adjustment based on patient size and exam type or iterative reconstruction. INDICATION: Abdominal pain FINDINGS: There are bibasal pulmonary infiltrates suspect for pneumonia. The heart size is normal. The liver is normal in size without focal lesions. Gallbladder is surgically absent. No biliary duct dilatation. Spleen is normal. There is some prominence of the common bile duct likely due to previous cholecystectomy. The adrenal glands are unremarkable. Kidneys normal. There is moderate atherosclerotic calcification of the aorta. The bowel gas pattern is nonspecific. There is right lower quadrant ostomy. There is no pelvic mass or adenopathy although the evaluation of pelvic structures is limited due to bilateral hip arthroplasties. There is no free air. There is no ascites. IMPRESSION: Bibasilar pulmonary consolidations left greater than right suspect for pneumonia. Previous cholecystectomy with prominence of the common bile duct likely due to prior gallbladder removal. Nonspecific bowel gas pattern with right lower quadrant ostomy. Dictated by: Dictated on workstation # [id number]
[2022-04-06 16:21] VITALS: BP 127/64
[2022-04-07] MEDS ORDERED: ERTAPENEM (NON-FORMULARY) 1,000 MG in NS (IVPB) 50 ML IV ONE (09:00)
== END 2022-04-06 16:21 | disposition home or self-care (01) ==
LOC: EDUNIT# 09:04 → ER 09:06
DX: R41.82 Altered mental status, unspecified (principal); N39.0 Urinary tract infection, site not specified; R53.1 Weakness; J44.9 Chronic obstructive pulmonary disease, unspecified; F17.200 Nicotine dependence, unspecified, uncomplicated; Z88.6 Allergy status to analgesic agent
CPT/HCPCS: 36415; 74177; 80053; 81000; 82805; 83690; 83735; 85025; 86141; 87077; 87088; 87186; 96361; 96365; 96375

== ENCOUNTER 2022-04-09 09:15 | Outpatient (RCR) | payer MEDICARE, MEDICAID ==
[2022-04-07] MEDS: ERTAPENEM 1000 MG (INVanz) VIAL IM SCH (09:54)
[2022-04-07] MEDS: LIDOCAINE 1% INJ 20 ML VIAL INJ SCH (09:54)
[2022-04-07 10:00] VITALS: BP 142/95
[2022-04-08 09:00] VITALS: BP 116/74
[2022-04-08] MEDS: ERTAPENEM 1000 MG (INVanz) VIAL IM SCH (09:15)
[2022-04-08] MEDS: LIDOCAINE 1% INJ 20 ML VIAL INJ SCH (09:24)
[~2022-04-09] VITALS: Wt 66.2 kg
[2022-04-09] MEDS: LIDOCAINE 1% INJ 20 ML VIAL INJ SCH (09:25)
[2022-04-09] MEDS: ERTAPENEM 1000 MG (INVanz) VIAL IM SCH (09:25)
[2022-04-09 09:44] VITALS: BP 122/72
[2022-04-09] MEDS ORDERED: LIDOCAINE 1% INJ 20 ML VIAL IJ SCH (10:00)
== END 2022-04-09 09:57 | disposition home or self-care (01) ==
LOC: SDC 09:15
PROVIDERS: ATTEND Internal Medicine
DX: N39.0 Urinary tract infection, site not specified (principal)
CPT/HCPCS: 96372

== ENCOUNTER → 2022-06-19 | Outpatient (CLI) | payer MEDICARE, MEDICAID ==
[~2022-06-19] MED LIST changes: +GADOTERATE 0.5 MMOL/ML (CLARISCAN) 15 ML VIAL IV ONE
--- NOTE | 2022-06-19 13:15 | Diagnostic Imaging Report ---
Clinical indication: Patient with bilateral hearing loss. EXAM: MRI of the brain/ IACs performed without and with 12 cc of Clariscan IV contrast. Sequences include sagittal T1 localizer, axial T2, axial flair, axial T1, coronal gradient echo, DWI, ADC map, axial T1 thin, axial T2 thin, coronal T1 thin, axial T2 3D fiesta, axial T1 post contrast whole brain, coronal T1 fat-sat post IV contrast whole brain, sagittal T1 post IV contrast whole brain, axial T1 post IV contrast thin fat sat, and coronal T1 post IV contrast thin. COMPARISONS: CT scan of the head and cervical spine without contrast dated 11/07/2021. MRI of the brain without contrast dated 09/17/2013. FINDINGS: TEMPORAL BONE STRUCTURES: There is a small to moderate amount of fluid involving the right mastoid air cells. Left mastoid air cells are clear. The internal auditory canal, otic capsule, middle ear, and temporal bone structures have normal anatomic appearance and are unremarkable. The visualized nerves VII and VIII within the IACs bilaterally and cisternal portions have normal appearance. CISTERNAL STRUCTURES: There is no cisternal mass seen. The remainder of the visualized cranial nerves in the basal cistern regions are unremarkable. BRAIN PARENCHYMA: There is a 3 mm focal area of low gradient echo signal involving left frontal lobe. There are focal, patchy confluent areas of high T2 signal white matter changes involving both cerebral hemispheres and periventricular regions, likely representing chronic small vessel ischemic disease and leukoaraiosis. There is no significant architectural distortion, midline shift, or herniation. There is no abnormal IV contrast enhancement or diffusion restriction signal changes. VENTRICLES: There is no hydrocephalus. VISUALIZED INTRACRANIAL VESSELS: Unremarkable as visualized. SKULL/ ORBITS: Unremarkable. VISUALIZED PARANASAL SINUSES: There is mild mucosal thickening involving the sphenoid sinus. IMPRESSION: 1: There is a small to moderate amount of fluid involving right mastoid air cells. Left mastoid air cells are clear. Otherwise, unremarkable MRI of the internal auditory canals, temporal bone structures, and basal cisterns. 2: Age related brain parenchymal changes with chronic small vessel ischemic disease and leukoaraiosis. 3: There is a focal area of likely remote microhemorrhage involving left frontal lobe. 4: There is mild mucosal thickening involving the sphenoid sinus. Dictated by: Dictated on workstation # [id number]
== END ==
LOC: RAD 11:14
PROVIDERS: ATTEND Obstetrics & Gynecology
DX: I67.81 Acute cerebrovascular insufficiency (principal); I67.82 Cerebral ischemia; G31.1 Senile degeneration of brain, not elsewhere classified; H91.8X3 Other specified hearing loss, bilateral; J32.3 Chronic sphenoidal sinusitis
CPT/HCPCS: 70553

== ENCOUNTER 2022-06-20 22:15 | Inpatient (IN) | payer MEDICARE, MEDICAID ==
[~2022-06-20] VITALS: Ht 162.6 cm; Wt 64.0 kg
[~2022-06-20 22:15] MED LIST changes: -GADOTERATE 0.5 MMOL/ML (CLARISCAN) 15 ML VIAL IV ONE
[2022-06-20] MEDS ORDERED: NS IV 500 ML 500 ML IV ONE (22:30)
[2022-06-20 22:41] LABS: BASOPHILS % (AUTO) 0 % (0-10); EOSINOPHILS # (AUTO) 0.1 10^3/uL (0.0-0.3); EOSINOPHILS % (AUTO) 3 % (0-10); HEMATOCRIT 38 % (35-52); HEMOGLOBIN 12.4 g/dL (11.5-16.0); LYMPHOCYTES # (AUTO) 2.3 10^3/uL (1.0-4.0); LYMPHOCYTES % (AUTO) 43 % (12-44); MEAN CORPUSCULAR HEMOGLOBIN 30 pg (25-34); MEAN CORPUSCULAR HGB CONC 33 g/dL (32-36); MEAN CORPUSCULAR VOLUME 92 fL (80-99); MEAN PLATELET VOLUME 9.9 fL (9.0-12.2); MONOCYTES # (AUTO) 0.5 10^3/uL (0.0-1.0); MONOCYTES % (AUTO) 10 % (0-12); NEUTROPHILS # (AUTO) 2.3 10^3/uL (1.8-7.8); NEUTROPHILS % (AUTO) 44 % (42-75); PLATELET COUNT 186 10^3/uL (130-400); WHITE BLOOD COUNT 5.2 10^3/uL (4.3-11.0)
[2022-06-20 22:44] LABS: ABG BASE EXCESS 1.9 MMOL/L (-2.5-2.5); ABG OXYGEN SATURATION 90 % (94-100); ABG PCO2 44 MMHG (35-45); ABG PH 7.39 (7.37-7.43); ABG PO2 51 MMHG (79-93); ABG TCO2 28.4 MMOL/L (21.0-31.0); ALBUMIN 3.8 GM/DL (3.2-4.5); ALLENS TEST YES-POS; INSPIRED O2 3L; POTASSIUM 3.4 MMOL/L (3.6-5.0); VENTILATOR NO
[2022-06-20 22:45] LABS: CALCIUM 9.5 MG/DL (8.5-10.1); PATIENT TEMP 34.8
[2022-06-20 22:47] LABS: TOTAL PROTEIN 6.6 GM/DL (6.4-8.2)
[2022-06-20 22:48] LABS: BILIRUBIN,TOTAL 0.3 MG/DL (0.1-1.0)
[2022-06-20 22:50] LABS: CREATININE SERUM 0.68 MG/DL (0.60-1.30)
--- NOTE | 2022-06-20 23:22 | ED General ---
General Chief Complaint: General Problems/Pain Stated Complaint: UNRESPONSIVE Nursing Triage Note: PT TO [facility] 5 VIA [facility] FROM HOME. EMS REPORTS THEY WERE CALLED BY A MALE WHO REPORTS HE SPOKE TO PT ON PHONE, ARRIVED TO PT HOME 10 MINS LATER AND PT WAS SLOW TO RESPOND. EMS REPORTS O2 EQUIPMENT AT HOME BUT PT NOT WEARING O2 SINCE SHE WAS GOING TO SMOKE A CIGARETTE. PT DROWSY UPON ARRIVAL TO ED, MUMBLING. Source of Information: Patient Exam Limitations: No Limitations History of Present Illness Date Seen by Provider: Jun 20, 2022 Time Seen by Provider: 22:17 Initial Comments Here by EMS with report of altered mental status. She lives at home. Male significant other called EMS when patient was very slow to respond. He apparently had called her but she was not answering well. Has history of similar events previously. She is currently being treated for chronic UTI. Patient has slurred speech but she is answering questions slowly. She does have history of oxygen dependence but was not on her oxygen when EMS got there because apparently she was going to go out and smoke a cigarette. No reported falls or injuries. She denies use of narcotics. She does have urostomy bag col lection. Bag is full with clear/yellow urine. Timing/Duration: 1 Hour Severity: Moderate Allergies and Home Medications Allergies Coded Allergies: bacitracin (Verified Allergy, Intermediate, "I BREAK OUT IN A RASH ALL OVER.", 04/02/22) neomycin (Verified Allergy, Intermediate, "I BREAK OUT IN A RASH ALL OVER.", 04/02/22) polymyxin B (Verified Allergy, Intermediate, "I BREAK OUT IN A RASH ALL OVER.", 04/02/22) ibuprofen (Verified Allergy, Mild, RASH, 04/02/22) naproxen (Verified Allergy, Mild, RASH, 04/02/22) strawberry (Verified Allergy, Mild, 04/02/22) sulfamethoxazole (Verified Allergy, Unknown, 04/02/22) tramadol (Verified Allergy, Unknown, 04/02/22) trimethoprim (Verified Allergy, Unknown, 04/02/22) Patient Home Medication List Home Medication List Reviewed: Yes Albuterol Sulfate (Proventil Hfa) 90 Mcg Hfa.aer.ad, 2 PUFF INH Q6H PRN for WHEEZING, (Reported) Entered as Reported by: MICHAEL GARZA on 03/19/22 0857 Alosetron HCl (Alosetron HCl) 0.5 Mg Tablet, 0.5 MG PO BID, (Reported) Entered as Reported by: MICHAEL GARZA on 03/19/22 0857 Apixaban (Eliquis) 5 Mg Tablet, 5 MG PO BID, (Reported) Entered as Reported by: GRETA MANCILLA on 07/11/17 1530 Benzonatate (Tessalon Perles) 100 Mg Capsule, 200 MG PO Q8H PRN for cough Prescribed by: GINA GUTIERREZ on 02/10/22 1611 Buspirone HCl (Buspirone HCl) 15 Mg Tablet, 15 MG PO TID, (Reported) Entered as Reported by: SERENITY COPELAND on 11/08/21 1216 Clonazepam (Clonazepam) 1 Mg Tablet, 1 MG PO BID, (Reported) Entered as Reported by: JAMIE GOVEA on 04/20/19 1024 Cyclobenzaprine HCl (Cyclobenzaprine HCl) 10 Mg Tablet, 10 MG PO TID PRN for SPASMS, (Reported) Entered as Reported by: MICHAEL GARZA on 03/19/22 0857 Dapagliflozin Propanediol (Farxiga) 5 Mg Tablet, 5 MG PO DAILY, (Reported) Entered as Reported by: GRETA MANCILLA on 05/21/18 1455 Diltiazem HCl (Diltiazem HCl) 90 Mg Tablet, 90 MG PO TID, (Reported) Entered as Reported by: SERENITY COPELAND on 11/08/21 1132 Eluxadoline (Viberzi) 75 Mg Tablet, 75 MG PO BID, (Reported) Entered as Reported by: MICHAEL GARZA on 03/19/22 0857 Epinephrine (Epipen) 0.3 Mg/0.3 Ml Auto.injct, 0.3 MG IJ PRN, (Reported) Entered as Reported by: MICHAEL GARZA on 03/19/22 0857 Erenumab-Aooe (Aimovig Autoinjector) 70 Mg/1 Ml Auto.injct, 70 MG MONTHLY, (Reported) Entered as Reported by: SERENITY COPELAND on 12/30/19 1728 Ertapenem Sodium (Ertapenem) 1 Gram Vial, 1 GM IM DAILY Prescribed by: BAYLEE WHITE on 04/03/22 1029 Fludrocortisone Acetate (Fludrocortisone Acetate) 0.1 Mg Tab, 0.1 MG PO EVERY OTHER DAY, (Reported) Entered as Reported by: SERENITY COPELAND on 11/08/21 113 Fluticasone Furoate (Flonase Sensimist) 27.5 Mcg/Actuation Rush.susp, 2 SPRAYS NSEACH DAILY, (Reported) Entered as Reported by: MICHAEL GARZA on 03/19/22 0857 Gabapentin (Neurontin) 300 Mg Capsule, 900 MG PO TID, (Reported) Entered as Reported by: RADHA KATHLEEN on 04/03/22 1101 Ipratropium/Albuterol Sulfate (Iprat-Albut 0.5-3(2.5) mg/3 ml) 0.5 Mg-3 Mg (2.5 Mg Base)/3 Ml Ampul.neb, 3 ML IH Q6H PRN for SHORTNESS OF BREATH, (Reported) Entered as Reported by: MICHAEL GARZA on 03/19/22 0857 Lamotrigine (Lamotrigine) 25 Mg Tablet, 25 MG PO BID, (Reported) Entered as Reported by: SERENITY COPELAND on 11/08/21 113 Latanoprost (Xalatan) 0.005 % Drops, 1 DROP OU HS, (Reported) Entered as Reported by: SERENITY COPELAND on 11/08/21 113 Levocetirizine Dihydrochloride (Levocetirizine Dihydrochloride) 5 Mg Tablet, 5 MG PO DAILY, (Reported) Entered as Reported by: URSZULA BELL on 05/14/18 0828 Lidocaine (Lidocaine) 4 % Adh..patch, 1 EACH TP DAILY, (Reported) Entered as Reported by: MICHAEL GARZA on 03/19/22 0857 Lipase/Protease/Amylase (Zenpep Dr 40,000 Units Capsule) 40-126-168 Capsule.dr, 2 EACH PO TID, (Reported) Entered as Reported by: MICHAEL GARZA on 03/19/22 0857 Meclizine HCl (Meclizine HCl) 25 Mg Tablet, 25 MG PO Q8H PRN for DIZZINESS, (Reported) Entered as Reported by: JESSICA GILMORE on 02/28/21 1353 Memantine HCl (Memantine HCl) 10 Mg Tablet, 10 MG PO DAILY, (Reported) Entered as Reported by: BIENVENIDO FARRELL on 07/28/15 1444 Montelukast Sodium (Montelukast Sodium) 10 Mg Tablet, 10 MG PO HS, (Reported) Entered as Reported by: SERENITY COPELAND on 11/08/21 1216 Naloxone HCl (Narcan) 4 Mg/Actuation Rush, 4 MG NS PRN, (Reported) Entered as Reported by: MICHAEL GARZA on 03/19/22 0857 Nicotine (Nicotrol) 10 Mg Cartridge, INHALER NS UD PRN for SMOKING CESSATION, (Reported) Entered as Reported by: SERENITY COPELAND on 11/08/21 1132 Nitroglycerin (Nitroglycerin) 0.4 Mg Tab.subl, 0.4 MG SL UD PRN for CHEST PAIN (ANGINA), (Reported) Entered as Reported by: SERENITY COPELAND on 11/08/21 113 Oxycodone HCl (Roxicodone) 15 Mg Tablet, 15 MG PO Q6H PRN for PAIN-SEVERE (8-10) Prescribed by: BAYLEE WHITE on 04/03/22 1240 Pantoprazole Sodium (Pantoprazole Sodium) 40 Mg Tablet.dr, 40 MG PO DAILY, (Reported) Entered as Reported by: MICHAEL GARZA on 03/19/22 0857 Primidone (Mysoline) 250 Mg Tablet, 250 MG PO BID, (Reported) Entered as Reported by: MICHAEL GARZA on 03/19/22 0857 Ropinirole HCl (Ropinirole HCl) 2 Mg Tablet, 4 MG PO HS, (Reported) Entered as Reported by: SERENITY COPELAND on 12/30/19 1728 Rosuvastatin Calcium (Rosuvastatin Calcium) 20 Mg Tablet, 20 MG PO DAILY, (Reported) Entered as Reported by: SERENITY COPELAND on 11/08/21 1132 Suvorexant (Belsomra) 10 Mg Tablet, 10 MG PO HS, (Reported) Entered as Reported by: MICHAEL GARZA on 03/19/22 0857 Tiotropium Br/Olodaterol HCl (Stiolto Respimat Inhal Rush) 2.5 Mcg-2.5 Mcg/Actuation Mist.inhal, 4 GM IH DAILY, (Reported) Entered as Reported by: RADHA KATHLEEN on 04/03/22 1106 Trazodone HCl (Trazodone HCl) 100 Mg Tablet, 100 MG PO HS, (Reported) Entered as Reported by: MICHAEL GARZA on 03/19/22 0857 Review of Systems Review of Systems Constitutional: see HPI Unable to complete review of systems due to altered mental status Past Xcgxplw-Ldvpeq-Jcjpjn Hx Patient Social History Tobacco Use?: Yes Tobacco type used: Cigarettes Smoking Status: Current Everyday Smoker Use of E-Cig and/or Vaping dev: Unable to obtain Substance use?: Unable to obtain Alcohol Use?: Unable to obtain Immunizations Up To Date Tetanus Booster (TDap): Unknown PED Vaccines UTD: No First/Initial COVID19 Vaccinat: UNKNOWN Second COVID19 Vaccination Hugo: UNKNOWN Third COVID19 Vaccination Date: UNKNOWN Seasonal Allergies Seasonal Allergies: Yes Past Medical History Surgery/Hospitalization HX: PMH;HF, COPD, AND STROKE HX., PALPATATIONS SURGERY; COLOSTOMY, TUBAL, AND EXPLORATORY, HEART CATH(03/28) Surgeries: Yes Cystectomy, Gallbladder, Orthopedic, Pancreatic Respiratory: Yes (HOME 02) COPD, Emphysema Currently Using CPAP: No Currently Using BIPAP: No Cardiac: Yes High Cholesterol, Irregular Heartbeat, Palpitations Neurological: Yes Seizure Disorder, TIA 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 Disorders: No 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 Disorders: Denies 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 Sexually Transmitted Disease: No HIV/AIDS: No Genitourinary: Yes UTI-Chronic Gastrointestinal: Yes Gastroesophageal Reflux, Chronic Diarrhea Musculoskeletal: Yes (CERVICAL SUGERY) Arthritis, Back Injury Endocrine: Yes Diabetes, Non-Insulin dep HEENT: Yes (LEFT EAR HEARING IMPAIRMENT) Cataract Loss of Vision: Denies Hearing Impairment: Hard of Hearing Cancer: Yes Bladder Did You Recieve Any Treatments: Yes What Type of Treatment Did You: Surgical Intervention Psychosocial: No Anxiety, Depression Nursing Suicide Risk Notes: UNABLE TO ASK SUICIDE QUESTIONS DUE TO PT PRESENTATION Integumentary: No Psoriasis Blood Disorders: No Adverse Reaction/Blood Tranf: No Family Medical History Reviewed Nursing Family Hx Cardiovascular disease G8 BROTHER (TRIPLE BYPASS) Diabetes mellitus 19 MOTHER FH: COPD (chronic obstructive pulmonary disease) 19 MOTHER FH: breast cancer 19 MOTHER FHx: brain cancer 19 FATHER Physical Exam Vital Signs Vital Signs - First Documented 06/20/22 22:15 Temp 34.8 Pulse 78 Resp 18 B/P (MAP) 89/61 (70) Pulse Ox 97 O2 Delivery Nasal Cannula O2 Flow Rate 3.00 Capillary Refill : Less Than 3 Seconds Height, Weight, BMI Height: 5'4.00" Weight: 165lbs. 0.0oz. [id number]; 23.00 BMI Method:Stated General Appearance: No Apparent Distress, Thin, Other (Slurred speech and very drowsy appearing) HEENT: PERRL/EOMI, Other (Mucous membranes dry) Neck: Non Tender, Supple Respiratory: Lungs Clear, Normal Breath Sounds Cardiovascular: Regular Rate, Rhythm, No Murmur Gastrointestinal: Non Tender, Soft Back: Normal Inspection, No CVA Tenderness, No Vertebral Tenderness Neurologic/Psychiatric: Other (Very drowsy but awakes to verbal and does have slurred speech. Does follow simple commands.) Skin: Normal Color, Warm/Dry Focused Exam Lactate Level 06/20/22 22:20: Lactic Acid Level 1.16 Lactic Acid Level Laboratory Tests Test 06/20/22 22:20 Lactic Acid Level 1.16 MMOL/L (0.50-2.00) Progress/Results/Core Measures Suspected Sepsis SIRS Temperature: Pulse: 78 Respiratory Rate: 18 Laboratory Tests 06/20/22 22:20: White Blood Count 5.2 Blood Pressure 89 /61 Mean: 70 06/20/22 22:20: Lactic Acid Level 1.16 Laboratory Tests 06/20/22 22:20: Creatinine 0.68, INR Comment 1.0, Platelet Count 186, Total Bilirubin 0.3 Results/Orders Lab Results Laboratory Tests Test 06/20/22 22:20 Range/Units White Blood Count 5.2 4.3-11.0 10^3/uL Red Blood Count 4.14 3.80-5.11 10^6/uL Hemoglobin 12.4 11.5-16.0 g/dL Hematocrit 38 35-52 % Mean Corpuscular Volume 92 80-99 fL Mean Corpuscular Hemoglobin 30 25-34 pg Mean Corpuscular Hemoglobin Concent 33 32-36 g/dL Red Cell Distribution Width 14.0 10.0-14.5 % Platelet Count 186 130-400 10^3/uL Mean Platelet Volume 9.9 9.0-12.2 fL Immature Granulocyte % (Auto) 0 % Neutrophils (%) (Auto) 44 42-75 % Lymphocytes (%) (Auto) 43 12-44 % Monocytes (%) (Auto) 10 0-12 % Eosinophils (%) (Auto) 3 0-10 % Basophils (%) (Auto) 0 0-10 % Neutrophils # (Auto) 2.3 1.8-7.8 10^3/uL Lymphocytes # (Auto) 2.3 1.0-4.0 10^3/uL Monocytes # (Auto) 0.5 0.0-1.0 10^3/uL Eosinophils # (Auto) 0.1 0.0-0.3 10^3/uL Basophils # (Auto) 0.0 0.0-0.1 10^3/uL Immature Granulocyte # (Auto) 0.0 0.0-0.1 10^3/uL Prothrombin Time 14.0 12.2-14.7 SEC INR Comment 1.0 0.8-1.4 Activated Partial Thromboplast Time 31 24-35 SEC Blood Gas Puncture Site L RAD Blood Gas Patient Temperature 34.8 Arterial Blood pH 7.39 7.37-7.43 Arterial Blood Partial Pressure CO2 44 35-45 MMHG Arterial Blood Partial Pressure O2 51 L 79-93 MMHG Arterial Blood HCO3 27 23-27 MMOL/L Arterial Blood Total CO2 28.4 21.0-31.0 MMOL/L Arterial Blood Oxygen Saturation 90 L 94-100 % Arterial Blood Base Excess 1.9 -2.5-2.5 MMOL/L Aamir Test YES-POS Blood Gas Ventilator Setting NO Blood Gas Inspired Oxygen 3L Sodium Level 138 135-145 MMOL/L Potassium Level 3.4 L 3.6-5.0 MMOL/L Chloride Level 103 98-107 MMOL/L Carbon Dioxide Level 24 21-32 MMOL/L Anion Gap 11 5-14 MMOL/L Blood Urea Nitrogen 8 7-18 MG/DL Creatinine 0.68 0.60-1.30 MG/DL Estimat Glomerular Filtration Rate 95 BUN/Creatinine Ratio 12 Glucose Level 142 H 70-105 MG/DL Lactic Acid Level 1.16 0.50-2.00 MMOL/L Calcium Level 9.5 8.5-10.1 MG/DL Corrected Calcium 9.7 8.5-10.1 MG/DL Total Bilirubin 0.3 0.1-1.0 MG/DL Aspartate Amino Transf (AST/SGOT) 26 5-34 U/L Alanine Aminotransferase (ALT/SGPT) 26 0-55 U/L Alkaline Phosphatase 86 40-136 U/L Total Protein 6.6 6.4-8.2 GM/DL Albumin 3.8 3.2-4.5 GM/DL My Orders Orders - CRISTIANE MCWILLIAMS MD Cbc With Automated Diff (06/20/22:) Comprehensive Metabolic Panel (06/20/22:) Blood Culture (06/20/22) Sputum Culture (06/20/22) Protime With Inr (06/20/22) Partial Thromboplastin Time (06/20/22:) Chest 1 View, Ap/Pa Only (06/20/22:) Ed Iv/Invasive Line Start (06/20/22:) Ed Iv/Invasive Line Start (06/20/22) Vital Signs Adult Sepsis Patie Q15M (06/20/22:) O2 (06/20/22:) Remove Rings In Anticipation O (06/20/22:) Lactic Acid Analyzer (06/20/22:) Ns Iv 500 Ml (Sodium Chloride 0.9%) (06/20/22 22:30) Arterial Blood Gas (06/20/22 22:20) Ns Iv 1000 Ml (Sodium Chloride 0.9%) (06/20/22 23:45) Ct Head Wo-R/O Stroke (06/21/22 00:25) Ketorolac Injection (Toradol Injection) (06/21/22 00:58) Medications Given in ED Current Medications Medications Dose Ordered Sig/B[place]on Route Start Time Stop Time Status Last Admin Dose Admin Sodium Chloride 500 ml @ 0 mls/hr Q0M ONCE IV 06/20/22 22:30 06/20/22 22:32 DC 06/20/22 22:44 0 MLS/HR Sodium Chloride 1,000 ml @ 0 mls/hr Q0M ONCE IV 06/20/22 23:45 06/20/22 23:46 DC 06/20/22 23:46 0 MLS/HR Vital Signs/I&O 06/20/22 06/20/22 22:15 22:15 Temp 34.8 Pulse 78 Resp 18 B/P (MAP) 89/61 (70) Pulse Ox 97 97 O2 Delivery Nasal Cannula Nasal Cannula O2 Flow Rate 3.00 3.00 06/21/22 00:00 Intake Total 500 ml Balance 500 ml Capillary Refill : Less Than 3 Seconds Blood Pressure Mean: 70 Progress Note : Progress Note Seen and evaluated. IV, labs including CBC, CMP and ABG. Coags ordered. We will forego UA she is currently being treated for known urinary tract infection that appears to be chronic. We will do blood cultures and lactic acid. Normal saline 500 mL bolus ordered. Monitor patient. Differential diagnosis includes electrolyte abnormality, polypharmacy, hypoxia, hypercarbia. 2320: Chest x-ray shows cardiomegaly without acute findings on my interpretation. CBC is normal. 2345: Coags are normal. Chemistry shows a glucose of 142 but otherwise grossly normal with normal LFTs. Lactic acid is negative. ABG reviewed and shows pH of 7.39 with PCO2 of 44. Blood pressure has ranged into the upper 80s. Normal saline 1 L bolus ordered. Monitor patient. 0025: Patient still quite drowsy. She is talking more and following commands better. Blood pressure 89 systolic with fluids running. We will go ahead and get CT of the head as she is now reported falls in the last month. Historical review shows that she has been been on apixaban so we will rule out intracranial hemorrhage as a cause. Patient will need admission. Pending CT of the head. Monitor patient. 0120: I had initially came back with concern for possible 0.5 cm focus of intraparenchymal hemorrhage. I did review the previous CT scan from 2021 and the focus is there. Radiology called with results. We did discuss this. He did look at the MRI and it was not noted on that from yesterday but the CT scan from 2021 clearly shows it. After that discussion, radiology agrees that there is no acute infarct or hemorrhage. I did discuss the case with Dr. White at 0127 and she accepts patient for admission to the ICU with continued fluids, observation status. Patient's blood pressure now is 110s systolic and she is mentating better. She had a long day yesterday and dehydration may be a part of the problem. She is improving now. We did give Toradol 15 mg IV for pain and pain that she has had from the fall a few months ago. She has for that directly. We have given that to her in the past. She does report allergy to naproxen and ibuprofen but Toradol seems to work well for her. She is much more comfortable now. Admit, observation status to the ICU given her blood pressure ranges. Patient agrees to plan. Diagnostic Imaging Diagonstic Imaging: Xray Plain Films/CT/US/NM/MRI: chest Comments Cardiomegaly without acute infiltrate on my interpretation Reviewed: Reviewed by Me Diagonstic Imaging: CT Plain Films/CT/US/NM/MRI: head Comments CT head shows no acute intracranial hemorrhage or abnormality. Discussed with radiologist. Reviewed previous films including CT head of 2021 which does show similar defect in the left basal ganglia which is likely calcification per radiology interpretation. Reviewed: Reviewed [place] Hawk Study, Reviewed by Me, Discussed w/Radiologist Departure Communication (Admissions) Time/Spoke to Admitting Phy: 01:27 Impression Primary Impression: Altered mental status Qualified Codes: R41.82 - Altered mental status, unspecified Additional Impression: Hypotension Qualified Codes: I95.9 - Hypotension, unspecified Disposition: ADMITTED INPATIENT Condition: Stable Admissions Decision to Admit Reason: Admit from ER (General) Decision to Admit/Date: Jun 21, 2022 Time/Decision to Admit Time: 01:27 Departure-Patient Inst. Referrals: SERENITY LONG DO (PCP/Family) Primary Care Physician CRISTIANE MCWILLIAMS MD Jun 20, 2022 23:22
[2022-06-20] MEDS ORDERED: NS IV 1000 ML 1,000 ML IV ONE (23:45)
[2022-06-21] MEDS ORDERED: KETOROLAC 30 MG/ML VIAL IVP STA (00:58)
[2022-06-21 03:00] VITALS: BP 109/70
[2022-06-21] MEDS ORDERED: ONDANSETRON 4 MG/2 ML (SDV) Z0FRAN IV PRN (04:00)
[2022-06-21] MEDS ORDERED: NS IV 1000 ML 1,000 ML IV SCH (04:00)
[2022-06-21] MEDS ORDERED: HYDROcodone/APAP 5 MG/325 MG (LORTAB) TAB PO PRN (04:45)
[2022-06-21] MEDS ORDERED: METHYL SALICYLATE/MENTHOL (BENGAY, MUSCLE RUB) 3 OZ TUBE TP PRN (04:45)
[2022-06-21 05:29] LABS: BASOPHILS % (AUTO) 0 % (0-10); EOSINOPHILS # (AUTO) 0.1 10^3/uL (0.0-0.3); EOSINOPHILS % (AUTO) 3 % (0-10); HEMATOCRIT 37 % (35-52); HEMOGLOBIN 11.8 g/dL (11.5-16.0); LYMPHOCYTES # (AUTO) 1.4 10^3/uL (1.0-4.0); LYMPHOCYTES % (AUTO) 28 % (12-44); MEAN CORPUSCULAR HEMOGLOBIN 30 pg (25-34); MEAN CORPUSCULAR HGB CONC 32 g/dL (32-36); MEAN CORPUSCULAR VOLUME 93 fL (80-99); MEAN PLATELET VOLUME 9.9 fL (9.0-12.2); MONOCYTES # (AUTO) 0.5 10^3/uL (0.0-1.0); MONOCYTES % (AUTO) 10 % (0-12); NEUTROPHILS % (AUTO) 58 % (42-75); PLATELET COUNT 169 10^3/uL (130-400); WHITE BLOOD COUNT 5.1 10^3/uL (4.3-11.0)
[2022-06-21 05:37] LABS: ALBUMIN 3.4 GM/DL (3.2-4.5); POTASSIUM 3.8 MMOL/L (3.6-5.0)
[2022-06-21 05:38] LABS: CALCIUM 8.6 MG/DL (8.5-10.1)
[2022-06-21 05:40] LABS: TOTAL PROTEIN 6.1 GM/DL (6.4-8.2)
[2022-06-21 05:41] LABS: BILIRUBIN,TOTAL 0.3 MG/DL (0.1-1.0)
[2022-06-21 05:43] LABS: CREATININE SERUM 0.57 MG/DL (0.60-1.30); PHOSPHORUS 4.5 MG/DL (2.3-4.7)
[2022-06-21 05:46] LABS: MAGNESIUM 1.8 MG/DL (1.6-2.4)
--- NOTE | 2022-06-21 05:48 | Diagnostic Imaging Report ---
PROCEDURE: CT head wo r/o stroke. TECHNIQUE: Multiple contiguous axial images were obtained through the brain without the use of intravenous contrast. Auto Exposure Controls were utilized during the CT exam to meet ALARA standards for radiation dose reduction. INDICATION: Acute neurologic deficit, unresponsive. Comparison made with previous CT head dated 11/07/2021 FINDINGS: There is some linear calcifications left basal ganglia was present previously. There is decreased density in the periventricular white matter both hemispheres consistent with chronic small vessel ischemic change. There are no masses or hemorrhages. There are no extra-axial fluid collections. IMPRESSION: Chronic ischemic leukoencephalopathy. No acute abnormality seen. I agree with preliminary interpretation. Dictated by: Dictated on workstation # [id number]
--- NOTE | 2022-06-21 05:52 | History & Physical-Hospitalist ---
History of Present Illness Date Seen 06/21/22 Time Seen by a Provider: 10:00 Attending Physician Ta Coulter DO PCP Admitting Physician: Kaila Painter DO Attending Physician: Kaila Painter DO Referring Physician Date of Admission Jun 21, 2022 at 01:34 Home Medications & Allergies Home Medications Reviewed patient Home Medication Reconciliation performed by pharmacy medication reconciliations production line technician and/or nursing. Patients Allergies have been reviewed. Allergies Allergies Coded Allergies bacitracin (Verified Allergy, Intermediate, "I BREAK OUT IN A RASH ALL OVER.", 04/02/22) neomycin (Verified Allergy, Intermediate, "I BREAK OUT IN A RASH ALL OVER.", 04/02/22) polymyxin B (Verified Allergy, Intermediate, "I BREAK OUT IN A RASH ALL OVER.", 04/02/22) ibuprofen (Verified Allergy, Mild, RASH, 04/02/22) naproxen (Verified Allergy, Mild, RASH, 04/02/22) strawberry (Verified Allergy, Mild, 04/02/22) sulfamethoxazole (Verified Allergy, Unknown, 04/02/22) tramadol (Verified Allergy, Unknown, Has rec lortab & oxycodone in the past, 06/21/22) trimethoprim (Verified Allergy, Unknown, 04/02/22) Past Avaqqmd-Dlxkvj-Gnzibd Hx Patient Social History Tobacco Use?: Yes Tobacco type used: Cigarettes Smoking Status: Current Everyday Smoker Use of E-Cig and/or Vaping dev: Yes E-Cig or Vaping type used: Nicotine Use of E-Cig and/or Vaping Jose: Current Everyday User Substance use?: No Alcohol Use?: No Pt feels they are or have been: No Immunizations Up To Date Date of Influenza Vaccine: Jan 31, 2022 First/Initial COVID19 Vaccinat: UNKNOWN Second COVID19 Vaccination Hugo: UNKNOWN Tetanus Booster (TDap): Unknown Hepatitis A: No Hepatitis B: No PED Vaccines UTD: No Date of Pneumonia Vaccine: Jan 11, 2019 Seasonal Allergies Seasonal Allergies: Yes Current Status Advance Directives: No Communicates: Verbally Primary Language: Kuwaiti Preferred Spoken Language: Kuwaiti Is interpretation needed?: No Sensory deficits: Vision impairment Implanted or Applied Medical D: Orthopedic hardware Past Medical History Surgeries: Cystectomy, Gallbladder, Orthopedic, Pancreatic COPD, Emphysema Currently Using CPAP: No Currently Using BIPAP: No High Cholesterol, Irregular Heartbeat, Palpitations Seizure Disorder, TIA 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 Coronary artery disease 2. Tonic obstructive pulmonary disease 3. Hyperlipidemia 4. Gastroesophageal reflux disease 5. Hypoxic brain injury 7. Cervical and lumbar disc disease 8. Crohn's disease Past surgical history 1. Cervical discectomy 2. Implantation and removal of stimulator 3. EGD 4. Coronary angiography Family Medical History Reviewed Nursing Family Hx Cardiovascular disease G8 BROTHER (TRIPLE BYPASS) Diabetes mellitus 19 MOTHER FH: COPD (chronic obstructive pulmonary disease) 19 MOTHER FH: breast cancer 19 MOTHER FHx: brain cancer 19 FATHER Physical Exam Physical Exam Vital Signs Vital Signs - First Documented Capillary Refill : Less Than 3 Seconds Height, Weight, BMI Height: 5'4.00" Weight: 165lbs. 0.0oz. [id number]; 24.20 BMI Method:Stated Results Results/Procedures Labs Laboratory Tests 06/20/22 22:20 06/21/22 05:19 Patient resulted labs reviewed. KAILA PAINTER DO Jun 21, 2022 05:52
[2022-06-21 06:08] LABS: BILIRUBIN,URINE NEGATIVE (NEGATIVE); CLARITY,URINE SL CLOUDY; COLOR,URINE YELLOW; GLUCOSE, URINE (UA) 1+ (NEGATIVE); KETONES,URINE NEGATIVE (NEGATIVE); LEUKOCYTE ESTERASE ,URINE NEGATIVE (NEGATIVE); NITRITE,URINE POSITIVE (NEGATIVE); PROTEIN,URINE NEGATIVE (NEGATIVE)
[2022-06-21 06:22] LABS: BACTERIA,URINE LARGE /HPF; WBC,URINE 0-2 /HPF; YEAST,URINE MODERATE /HPF
--- NOTE | 2022-06-21 06:22 | Diagnostic Imaging Report ---
INDICATION: Altered mental status. COMPARISON: 03/24/2022. FINDINGS: Some patchy bibasilar pulmonary opacity likely partial atelectasis. Heart size stable. No overt failure pattern. No vascular congestion. The upper lobes clear and well expanded. IMPRESSION: Likely mild bibasilar atelectasis. Dictated by: Dictated on workstation # [id number]
[2022-06-21] MEDS ORDERED: cefTRIAXone 1 GM PRE-MIX 50 ML IV SCH (06:45)
[2022-06-21] MEDS ORDERED: NS IV 500 ML 500 ML IV PRN (06:45)
[2022-06-21] MEDS ORDERED: POTASSIUM CL 10MEQ/50ML IVPB 50 ML IV ONE (06:48)
[2022-06-21] MEDS ORDERED: MAGNESIUM 1 GM/100 ML IVPB 200 ML IV ONE (06:48)
[2022-06-21] MEDS: POTASSIUM CL 10MEQ/50ML IVPB 50 ML IV SCH ×2 (06:51→08:38)
[2022-06-21] MEDS: MAGNESIUM 1 GM/100 ML IVPB 100 ML IV SCH (06:53)
--- NOTE | 2022-06-21 09:14 | Tele-ICU Consult ---
History of Present Illness History of Present Illness Date Seen by Provider: Jun 21, 2022 Time Seen by Provider: 09:09 History of Present Illness eICU consult 66 ho F brought to ED for AMS, Hx of falls, CT head shows Chronic ischemic leukoencephalopathy. No acute abnormality seen. Pt on home oxygen for COPD, still smoking also Hx of CVA, urostomy-Hx of bladder Ca and chronic UTI;s taking on IV Rocephin Speech is slurred ABG 7.39/44/51 LA 1.16, now on 4 lpm NC SpO2 in mid 90's Appears able to protect airway Allergies and Home Medications Allergies Coded Allergies: bacitracin (Verified Allergy, Intermediate, "I BREAK OUT IN A RASH ALL OVER.", 04/02/22) neomycin (Verified Allergy, Intermediate, "I BREAK OUT IN A RASH ALL OVER.", 04/02/22) polymyxin B (Verified Allergy, Intermediate, "I BREAK OUT IN A RASH ALL OVER.", 04/02/22) ibuprofen (Verified Allergy, Mild, RASH, 04/02/22) naproxen (Verified Allergy, Mild, RASH, 04/02/22) strawberry (Verified Allergy, Mild, 04/02/22) sulfamethoxazole (Verified Allergy, Unknown, 04/02/22) tramadol (Verified Allergy, Unknown, Has rec lortab & oxycodone in the past, 06/21/22) trimethoprim (Verified Allergy, Unknown, 04/02/22) Home Medications Albuterol Sulfate 90 Mcg Hfa.aer.ad, 2 PUFF INH Q6H PRN for WHEEZING, (Reported) Alosetron HCl 0.5 Mg Tablet, 0.5 MG PO BID, (Reported) Apixaban 5 Mg Tablet, 5 MG PO BID, (Reported) Benzonatate 100 Mg Capsule, 200 MG PO Q8H PRN for cough Prescribed by: GINA GUTIERREZ on 02/10/22 1611 Buspirone HCl 15 Mg Tablet, 15 MG PO TID, (Reported) Clonazepam 1 Mg Tablet, 1 MG PO BID, (Reported) Cyclobenzaprine HCl 10 Mg Tablet, 10 MG PO TID PRN for SPASMS, (Reported) Dapagliflozin Propanediol 5 Mg Tablet, 5 MG PO DAILY, (Reported) Diltiazem HCl 90 Mg Tablet, 90 MG PO TID, (Reported) Eluxadoline 75 Mg Tablet, 75 MG PO BID, (Reported) Epinephrine 0.3 Mg/0.3 Ml Auto.injct, 0.3 MG IJ PRN, (Reported) Erenumab-Aooe 70 Mg/1 Ml Auto.injct, 70 MG MONTHLY, (Reported) Ertapenem Sodium 1 Gram Vial, 1 GM IM DAILY MIX WITH 3.2ML LIDOCAINE 1% Prescribed by: BAYLEE WHITE on 04/03/22 1029 Fludrocortisone Acetate 0.1 Mg Tab, 0.1 MG PO EVERY OTHER DAY, (Reported) Fluticasone Furoate 27.5 Mcg/Actuation [place].susp, 2 SPRAYS NSEACH DAILY, (Reported) Gabapentin 300 Mg Capsule, 900 MG PO TID, (Reported) Ipratropium/Albuterol Sulfate 0.5 Mg-3 Mg (2.5 Mg Base)/3 Ml Ampul.neb, 3 ML IH Q6H PRN for SHORTNESS OF BREATH, (Reported) Lamotrigine 25 Mg Tablet, 25 MG PO BID, (Reported) Latanoprost 0.005 % Drops, 1 DROP OU HS, (Reported) Levocetirizine Dihydrochloride 5 Mg Tablet, 5 MG PO DAILY, (Reported) Lidocaine 4 % Adh..patch, 1 EACH TP DAILY, (Reported) Lipase/Protease/Amylase 40-126-168 Capsule.dr, 2 EACH PO TID, (Reported) Meclizine HCl 25 Mg Tablet, 25 MG PO Q8H PRN for DIZZINESS, (Reported) Memantine HCl 10 Mg Tablet, 10 MG PO DAILY, (Reported) Montelukast Sodium 10 Mg Tablet, 10 MG PO HS, (Reported) Naloxone HCl 4 Mg/Actuation [place], 4 MG NS PRN, (Reported) Nicotine 10 Mg Cartridge, INHALER NS UD PRN for SMOKING CESSATION, (Reported) Nitroglycerin 0.4 Mg Tab.subl, 0.4 MG SL UD PRN for CHEST PAIN (ANGINA), (Reported) Oxycodone HCl 15 Mg Tablet, 15 MG PO Q6H PRN for PAIN-SEVERE (8-10) Prescribed by: BAYLEE WHITE on 04/03/22 1240 Pantoprazole Sodium 40 Mg Tablet.dr, 40 MG PO DAILY, (Reported) Primidone 250 Mg Tablet, 250 MG PO BID, (Reported) Ropinirole HCl 2 Mg Tablet, 4 MG PO HS, (Reported) TAKES 2 (2MG) TABS Rosuvastatin Calcium 20 Mg Tablet, 20 MG PO DAILY, (Reported) Suvorexant 10 Mg Tablet, 10 MG PO HS, (Reported) Tiotropium Br/Olodaterol HCl 2.5 Mcg-2.5 Mcg/Actuation Mist.inhal, 4 GM IH DAILY, (Reported) Trazodone HCl 100 Mg Tablet, 100 MG PO HS, (Reported) Past Medical/Social/Family Hx Patient Social History Tobacco Use?: Yes Tobacco type used: Cigarettes Smoking Status: Current Everyday Smoker Use of E-Cig and/or Vaping dev: Yes E-Cig or Vaping type used: Nicotine E-Cig and/or Vaping Freq: Current Everyday User Substance use?: No Alcohol Use?: No Pt stated abuse/neglect: No Immunizations Up To Date Influenza Vaccine Up-to-Date: No; Not Current First/Initial COVID19 Vaccinat: UNKNOWN Second COVID19 Vaccination Hugo: UNKNOWN Tetanus Booster (TDap): Unknown Hepatitis A: No Hepatitis B: No TB Skin Test: None Date of Pneumonia Vaccine: Jan 11, 2019 Current Status Advance Directives: No Communicates: Verbally Primary Language: Sami Preferred Spoken Language: Sami Is interpretation needed?: No Sensory deficits: Vision impairment Implanted or Applied Medical D: Orthopedic hardware Past Medical History Past medical history 1. Coronary artery disease 2. Tonic obstructive pulmonary disease 3. Hyperlipidemia 4. Gastroesophageal reflux disease 5. Hypoxic brain injury 7. Cervical and lumbar disc disease 8. Crohn's disease Past surgical history 1. Cervical discectomy 2. Implantation and removal of stimulator 3. EGD 4. Coronary angiography Review of Systems Constitutional: see HPI EENTM: see HPI Respiratory: see HPI Cardiovascular: see HPI Gastrointestinal: see HPI Genitourinary: see HPI Musculoskeletal: see HPI Skin: see HPI Psychiatric/Neurological: See HPI Focused Exam Lactate Level 06/20/22 22:20: Lactic Acid Level 1.16 Height, Weight, BMI Height: 5'4.00" Weight: 165lbs. 0.0oz. 72.019402wc; 24.20 BMI Method:Stated Exam Exam Patient acknowledged, consented, and participated in this virtual visit which was conducted using real time audio/video Vital Signs Date Time Temp Pulse Resp B/P (MAP) Pulse Ox O2 Delivery O2 Flow Rate FiO2 06/21/22 08:36 97 Nasal Cannula 4.00 06/21/22 08:04 36.1 06/21/22 08:00 68 20 106/62 (75) 95 Nasal Cannula 4.00 06/21/22 07:00 78 107/101 (104) 89 Nasal Cannula 4.00 06/21/22 07:00 56 06/21/22 06:00 66 19 128/82 (97) 96 Nasal Cannula 4.00 06/21/22 04:45 66 24 117/62 (80) 94 Nasal Cannula 4.00 06/21/22 04:15 63 13 113/79 (90) 97 Nasal Cannula 4.00 06/21/22 03:45 81 16 97 Nasal Cannula 4.00 06/21/22 03:30 56 16 106/70 (82) 96 Nasal Cannula 4.00 06/21/22 03:26 60 06/21/22 03:15 125 16 100/86 (91) 92 Nasal Cannula 4.00 06/21/22 03:00 125 16 123/48 (73) 92 Nasal Cannula 4.00 06/21/22 03:00 96 Nasal Cannula 4.00 06/21/22 03:00 59 20 109/70 96 Nasal Cannula 3.00 06/20/22 22:15 Nasal Cannula 3.00 06/20/22 22:15 34.8 78 18 89/61 (70) 97 Nasal Cannula 3.00 06/20/22 22:15 97 Nasal Cannula 3.00 I & O 06/21/22 07:00 Intake Total 1550 ml Output Total 600 ml Balance 950 ml Height & Weight Height: 5'4.00" Weight: 165lbs. 0.0oz. [id number]; 24.20 BMI Method:Stated General Appearance: No Apparent Distress, Thin, Other (Slurred speech and very drowsy appearing) HEENT: PERRL/EOMI, Other (Mucous membranes dry) Neck: Non Tender, Supple Respiratory: Lungs Clear, Normal Breath Sounds, Decreased Breath Sounds Cardiovascular: Regular Rate, Rhythm, No Edema, No Murmur Capillary Refill: Less Than 3 Seconds Gastrointestinal: normal bowel sounds, non tender, soft Neurologic/Psychiatric: Other (Very drowsy but awakes to verbal and does have slurred speech. Does follow simple commands.) Skin: Normal Color, Warm/Dry Results Lab Laboratory Tests 06/20/22 22:20 06/21/22 05:19 Assessment/Plan Assessment/Plan will continue to monitor, probably can go to med floor Critical Care: Critically Ill Patient Time spent with patient (mins): 30 LEONEL ALVAREZ MD Jun 21, 2022 09:14
[2022-06-21] MEDS ORDERED: OXYC15TA56 PO (12:00)
--- NOTE | 2022-06-21 12:02 | Short Stay Summary-Hospitalist ---
History of Present Illness HPI/Chief Complaint CC: Hypotension following a fall with AMS HPI: This is a 66yoWF clinic patient of [facility] who presented from the ER with hy potension and AMS following a fall. She had received IVF in ER and her AMS had resolved following the night in the ICU. Overall she has done well and is complaining of severe pain which is chronic. Source: patient Exam Limitations: no limitations Date Seen 06/21/22 Time Seen by a Provider: 11:00 Attending Physician Ta Coulter DO PCP Admitting Physician: Kaila Painter DO Attending Physician: Kaila Painter DO Referring Physician Date of Admission Jun 21, 2022 at 01:34 Home Medications & Allergies Home Medications Reviewed patient Home Medication Reconciliation performed by pharmacy medication reconciliations radioactivity technician and/or nursing. Patients Allergies have been reviewed. Allergies Allergies Coded Allergies bacitracin (Verified Allergy, Intermediate, "I BREAK OUT IN A RASH ALL OVER.", 04/02/22) neomycin (Verified Allergy, Intermediate, "I BREAK OUT IN A RASH ALL OVER.", 04/02/22) polymyxin B (Verified Allergy, Intermediate, "I BREAK OUT IN A RASH ALL OVER.", 04/02/22) ibuprofen (Verified Allergy, Mild, RASH, 04/02/22) naproxen (Verified Allergy, Mild, RASH, 04/02/22) strawberry (Verified Allergy, Mild, 04/02/22) sulfamethoxazole (Verified Allergy, Unknown, 04/02/22) tramadol (Verified Allergy, Unknown, Has rec lortab & oxycodone in the past, 06/21/22) trimethoprim (Verified Allergy, Unknown, 04/02/22) Past Yolvssp-Gchlbd-Fofgri Hx Patient Social History Marrital Status: Employed/Student: retired Tobacco Use?: Yes Tobacco type used: Cigarettes Smoking Status: Current Everyday Smoker Use of E-Cig and/or Vaping dev: Yes E-Cig or Vaping type used: Nicotine Use of E-Cig and/or Vaping Jose: Current Everyday User Substance use?: No Alcohol Use?: No Pt feels they are or have been: No Immunizations Up To Date Date of Influenza Vaccine: Jan 31, 2022 First/Initial COVID19 Vaccinat: UNKNOWN Second COVID19 Vaccination Hugo: UNKNOWN Tetanus Booster (TDap): Unknown Hepatitis A: No Hepatitis B: No PED Vaccines UTD: No Date of Pneumonia Vaccine: Jan 11, 2019 Seasonal Allergies Seasonal Allergies: Yes Current Status Advance Directives: No Communicates: Verbally Primary Language: Angolan Preferred Spoken Language: Angolan Is interpretation needed?: No Sensory deficits: Vision impairment Implanted or Applied Medical D: Orthopedic hardware Past Medical History Surgeries: Cystectomy, Gallbladder, Orthopedic, Pancreatic COPD, Emphysema Currently Using CPAP: No Currently Using BIPAP: No High Cholesterol, Irregular Heartbeat, Palpitations Seizure Disorder, 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 Coronary artery disease 2. Tonic obstructive pulmonary disease 3. Hyperlipidemia 4. Gastroesophageal reflux disease 5. Hypoxic brain injury 7. Cervical and lumbar disc disease 8. Crohn's disease Past surgical history 1. Cervical discectomy 2. Implantation and removal of stimulator 3. EGD 4. Coronary angiography Family Medical History Reviewed Nursing Family Hx Cardiovascular disease G8 BROTHER ([place]) Diabetes mellitus 19 MOTHER FH: COPD (chronic obstructive pulmonary disease) 19 MOTHER FH: breast cancer 19 MOTHER FHx: brain cancer 19 FATHER Review of Systems Constitutional: see HPI, dizziness, malaise, weakness Physical Exam Physical Exam Vital Signs Vital Signs - First Documented Capillary Refill : Less Than 3 Seconds Height, Weight, BMI Height: 5'4.00" Weight: 165lbs. 0.0oz. 72.062992lc; 24.20 BMI Method:Stated General Appearance: No Apparent Distress, Chronically ill, Thin, Other (Slurred speech and very drowsy appearing) HEENT: PERRL/EOMI, Other (Mucous membranes dry) Neck: Non Tender, Supple Respiratory: Lungs Clear, Normal Breath Sounds, Decreased Breath Sounds Cardiovascular: Regular Rate, Rhythm, No Edema, No Murmur Gastrointestinal: Non Tender, Soft Back: Normal Inspection, No CVA Tenderness, No Vertebral Tenderness Neurologic/Psychiatric: Other (Very drowsy but awakes to verbal and does have slurred speech. Does follow simple commands.) Skin: Normal Color, Warm/Dry Results Results/Procedures Labs Laboratory Tests 06/20/22 22:20 06/21/22 05:19 Patient resulted labs reviewed. Short Stay Diagnosis Discharge Diagnosis-Short Stay Admission Diagnosis Fall Hypotension AMS Final Discharge Diagnosis Fall AMS Hypotension COPD O2 dependent Smoker Plan: DC home Conclusion Plan DC home Diagnosis/Problems Diagnosis/Problems (1) Hypotension Status: Acute Qualifiers: Qualified Codes: I95.9 - Hypotension, unspecified (2) Altered mental status Status: Acute Qualifiers: Qualified Codes: R41.82 - Altered mental status, unspecified (3) Generalized weakness Status: Acute KAILA PAINTER DO Jun 21, 2022 12:02
--- NOTE | 2022-06-21 12:02 | D/C HH Face to Face Order ---
D/C HH Face to Face Orders Reconcile Patient Problems Problems Reviewed?: Yes Instructions for Patient HH Patient Instructions/FollowUp: PCP 1 week Physician to follow Patient: [facility] Discharge Diet for Home: No Restrictions Patient Problems: Falls Patient Data-Allergies,Ht & Wt Patient Allergies: Coded Allergies: bacitracin (Verified Allergy, Intermediate, "I BREAK OUT IN A RASH ALL OVER.", 04/02/22) neomycin (Verified Allergy, Intermediate, "I BREAK OUT IN A RASH ALL OVER.", 04/02/22) polymyxin B (Verified Allergy, Intermediate, "I BREAK OUT IN A RASH ALL OVER.", 04/02/22) ibuprofen (Verified Allergy, Mild, RASH, 04/02/22) naproxen (Verified Allergy, Mild, RASH, 04/02/22) strawberry (Verified Allergy, Mild, 04/02/22) sulfamethoxazole (Verified Allergy, Unknown, 04/02/22) tramadol (Verified Allergy, Unknown, Has rec lortab & oxycodone in the past, 06/21/22) trimethoprim (Verified Allergy, Unknown, 04/02/22) Height (Feet): 5 Height (Inches): 4.00 Weight (Pounds): 165 Weight (Ounces): 0.0 Home Health Need/Face to Face Date of Face to Face: Jun 21, 2022 Clinical Findings: Generalized weakness and fatigue, Instability, Muscle weakness I have seen Pt [id number]: Yes Discharged To: Home Diagnosis/Conditions: Debility Patient is Homebound due to: CognItive deficits, Pain w/ambulation Homebound Status Due to the above stated illness, injury or surgical procedure (medical condition or diagnosis) and associated clinical findings, the patient is homebound because of his/her inability to leave home except with aid of a supportive device and/or person AND leaving the home requires a considerable and taxing effort or is medically contraindicated. Pt req the following assistanc: Walker Home Health Nursing Orders Home Health Services Order: Nursing Services, Syrup Mixer-Evaluate & Treat, Physical Therapy-Evaluate & Treat Home Health Infusion Therapy Line Start Date: Jun 20, 2022 Certify Stmt I certify that this patient is under my care and that I, a nurse practitioner or a physician; a server assistant working with me, had a face to face encounter that - meets the physician face to face encounter requirements with this patient as dated. BAYLEE WHITE DO Jun 21, 2022 12:02
--- NOTE | 2022-06-21 12:08 | Physical Therapy Evaluation ---
PT Evaluation-General Medical Diagnosis Admission Date Jun 21, 2022 at 01:34 Medical Diagnosis: hypotension/AMS Onset Date: Jun 21, 2022 Therapy Diagnosis Therapy Diagnosis: debility Height/Weight Height (Feet): 5 Height (Inches): 4.00 Weight (Pounds): 165 Weight (Ounces): 0.0 Precautions Precautions/Isolations: Fall Prevention, Standard Precautions Referral Physician: Inocencio Reason for Referral: Evaluation/Treatment Medical History Pertinent Medical History: Atrial Fib, CAD, COPD, DM, HTN, OA, PVD, Smoking Current History EMS secondary to AMS Reviewed History: Yes Social History Home: Single Level Current Living Status: Spouse Prior Prior Level of Function SCALE: Activities may be completed with or without assistive devices. 3-Unhbzgnrke-wudpacf completes the activity by him/herself with no assistance from a helper. 5-Set-up or Clean-up Assistance-helper sets up or cleans up; patient completes activity. [facility] assists only prior to or following the activity. 4-Supervision or Touching Assistance-helper provides verbal cues and/or touching/steadying and/or contact guard assistance as patient completes activity. Assistance may be provided throughout the activity or intermittently. 3-Partial/Moderate Assistance-helper does LESS THAN HALF the effort. [facility] lifts, holds or supports trunk or limbs, but provides less than half the effort. 2-Substantial/Maximal Assistance-helper does MORE THAN HALF the effort. [facility] lifts or holds trunk or limbs and provides more than half the effort. 3-Piqkkpkri-wtpjfz does ALL the effort. Patient does none of the effort to complete the activity. Or, the assistance of 2 or more helpers is required for the patient to complete the activity. If activity was not attempted, code reason: 7-Patient Refused. 9-Not Applicable-not attempted and the patient did not perform the activity before the current illness, exacerbation or injury. 10-Not Attempted due to Environmental Limitations-(lack of equipment, weather restraints, etc.). 88-Not Attempted due to Medical Conditions or Safety Concerns. Bed Mobility: 6 Transfers (B,C,W/C): 6 Gait: 6 Indoor Mobility (Ambulation): Independent Prior Devices Use: Walker PT Evaluation-Current Subjective Patient states, "I just want to go home" Pain Numeric Pain Scale: 0-No Pain Location: No Pain Reported Objective Patient Orientation: Normal For Age Attachments: Oxygen ROM/Strength ROM Lower Extremities bilateral LE WFL Strength Lower Extremities 4/5 grossly bilateral LE Integumentary/Posture Bowel Incontinence: No Bladder Incontinence: No Posture WFL Neuromuscular (Tone, Coordination, Reflexes) grossly intact Sensory Vision: Wears Glasses Transfers Lying to Sitting/Side of Bed(Q: 6 Sit to Stand (QC): 6 Gait Mode of Locomotion: Walk Anticipated Mode of Locomotion: Walk Walk 10 feet (QC): 6 Walk 50 ft with 2 Turns(QC): 6 Walk 150 ft (QC): 6 Distance: 200' Gait Assistive Device: FWW Comments/Gait Description safe and functional with no deviation Balance Sitting Static: Normal Sitting Dynamic: Normal Standing Static: Normal Standing Dynamic: Normal Assessment/Needs Patient is currently at independent [facility] with all gross motor skills safely and does not require skilled PT intervention. Rehab Potential: Fair PT Plan Treatment/Plan Treatment Plan: Discontinue PT Treatment Duration: Jun 21, 2022 Frequency: 1 time per week Estimated Hrs Per Day: .25 hour per day Patient and/or Family Agrees t: Yes Time Time In: 1155 Time Out: 1205 DATE: Jun 21, 2022 Total Billed Treatment Time: 10 Total Billed Treatment 1 visit EVLowC 10 min ZOYA HANNON PT Jun 21, 2022 12:08
[2022-06-22] MEDS ORDERED: POTASSIUM CL 10MEQ/50ML IVPB 50 ML IV SCH (06:00)
[2022-06-22] MEDS ORDERED: KCL 20 MEQ TAB (K-DUR) PO SCH (06:00)
[2022-06-22] MEDS ORDERED: MAGNESIUM 1 GM/100 ML IVPB 100 ML IV SCH (06:00)
== END 2022-06-21 12:35 | disposition home health service (06) | DRG 315 ==
LOC: EDUNIT# 22:15 → ER 22:16 → ICU 06-21 01:34
PROVIDERS: ADMIT Internal Medicine; ATTEND Internal Medicine
DX: I95.9 Hypotension, unspecified (principal); G93.49 Other encephalopathy; K50.90 Crohn's disease, unspecified, without complications; R41.82 Altered mental status, unspecified; R53.1 Weakness; F17.210 Nicotine dependence, cigarettes, uncomplicated; I25.10 Atherosclerotic heart disease of native coronary artery without angina pectoris; K21.9 Gastro-esophageal reflux disease without esophagitis; J43.9 Emphysema, unspecified; E78.00 Pure hypercholesterolemia, unspecified; G40.909 Epilepsy, unspecified, not intractable, without status epilepticus; E11.9 Type 2 diabetes mellitus without complications; F41.9 Anxiety disorder, unspecified; F32.A Depression, unspecified; Z86.73 Personal history of transient ischemic attack (TIA), and cerebral infarction without residual deficits; Z85.51 Personal history of malignant neoplasm of bladder; I50.9 Heart failure, unspecified
CPT/HCPCS: 36415; 70450; 71045; 80053; 81000; 82805; 83605; 83735; 84100; 85025; 85610; 85730; 87040; 87077; 87081; 87088

== ENCOUNTER 2022-06-30 07:34 | Emergency (ER) | payer MEDICARE, MEDICAID ==
[~2022-06-30] VITALS: Ht 162 cm; Wt 64.8 kg
[2022-06-30] MEDS ORDERED: NS IV 500 ML 500 ML IV SCH (08:00)
--- NOTE | 2022-06-30 08:05 | ED General ---
General Chief Complaint: Catheter/Drain/Tube Problems Stated Complaint: DEHYDRATION, BAG CHANGE Nursing Triage Note: PT PRESENTS TO ED VIA POV FROM HOME WITH COMPLAINTS OF DECREASED URINATION X 2 DAYS, FEELS LIKE SHE IS DEHYDRATED, AN REPORTS DIARRHEA. PT STATES SHE ALSO HASNT HAD HER UROSTOMY BAG CHANGED IN 2 WEEKS BECAUSE SHE NO LONGER HAS HOME HEALTH. Source of Information: Patient Exam Limitations: No Limitations History of Present Illness Date Seen by Provider: Jun 30, 2022 Time Seen by Provider: 07:45 Initial Comments 66-year-old female with history of bladder cancer status post cystostomy presents for decreased urine output from her cystostomy tube over the last couple of days. She also reports some loose stools during that time. She no longer has home health who used to help her change her urostomy bags and requests help with changing it today as she has not had it changed in 2 weeks. She denies any fevers or chills. She feels as though she may be dehydrated. Normal p.o. intake. All other systems reviewed and negative except documented per HPI. Voice recognition software was used to help create this chart Allergies and Home Medications Allergies Coded Allergies: bacitracin (Verified Allergy, Intermediate, "I BREAK OUT IN A RASH ALL OVER.", 04/02/22) neomycin (Verified Allergy, Intermediate, "I BREAK OUT IN A RASH ALL OVER.", 04/02/22) polymyxin B (Verified Allergy, Intermediate, "I BREAK OUT IN A RASH ALL OVER.", 04/02/22) ibuprofen (Verified Allergy, Mild, RASH, 04/02/22) naproxen (Verified Allergy, Mild, RASH, 04/02/22) strawberry (Verified Allergy, Mild, 04/02/22) sulfamethoxazole (Verified Allergy, Unknown, 04/02/22) tramadol (Verified Allergy, Unknown, Has rec lortab & oxycodone in the past, 06/21/22) trimethoprim (Verified Allergy, Unknown, 04/02/22) Patient Home Medication List Home Medication List Reviewed: Yes Albuterol Sulfate (Proventil Hfa) 90 Mcg Hfa.aer.ad, 2 PUFF INH Q6H PRN for WHEEZING, (Reported) Entered as Reported by: MICHAEL GARZA on 03/19/22 0876 Alosetron HCl (Alosetron HCl) 0.5 Mg Tablet, 0.5 MG PO BID, (Reported) Entered as Reported by: MICHAEL GARZA on 03/19/22 0857 Apixaban (Eliquis) 5 Mg Tablet, 5 MG PO BID, (Reported) Entered as Reported by: GRETA MANCILLA on 07/11/17 1530 Benzonatate (Tessalon Perles) 100 Mg Capsule, 200 MG PO Q8H PRN for cough Prescribed by: GINA GUTIERREZ on 02/10/22 1611 Buspirone HCl (Buspirone HCl) 15 Mg Tablet, 15 MG PO TID, (Reported) Entered as Reported by: SERENITY COPELAND on 11/08/21 1216 Clonazepam (Clonazepam) 1 Mg Tablet, 1 MG PO BID, (Reported) Entered as Reported by: JAMIE GOVEA on 04/20/19 1024 Cyclobenzaprine HCl (Cyclobenzaprine HCl) 10 Mg Tablet, 10 MG PO TID PRN for SPASMS, (Reported) Entered as Reported by: MICHAEL GARZA on 03/19/22 0857 Dapagliflozin Propanediol (Farxiga) 5 Mg Tablet, 5 MG PO DAILY, (Reported) Entered as Reported by: GRETA MANCILLA on 05/21/18 1455 Diltiazem HCl (Diltiazem HCl) 90 Mg Tablet, 90 MG PO TID, (Reported) Entered as Reported by: SERENITY COPELAND on 11/08/21 1132 Eluxadoline (Viberzi) 75 Mg Tablet, 75 MG PO BID, (Reported) Entered as Reported by: MICHAEL GARZA on 03/19/22 0857 Epinephrine (Epipen) 0.3 Mg/0.3 Ml Auto.injct, 0.3 MG IJ PRN, (Reported) Entered as Reported by: MICHAEL GARZA on 03/19/22 0857 Erenumab-Aooe (Aimovig Autoinjector) 70 Mg/1 Ml Auto.injct, 70 MG MONTHLY, (Reported) Entered as Reported by: SERENITY COPELAND on 12/30/19 1728 Ertapenem Sodium (Ertapenem) 1 Gram Vial, 1 GM IM DAILY Prescribed by: BAYLEE WHITE on 04/03/22 1029 Fludrocortisone Acetate (Fludrocortisone Acetate) 0.1 Mg Tab, 0.1 MG PO EVERY OTHER DAY, (Reported) Entered as Reported by: SERENITY COPELAND on 11/08/21 113 Fluticasone Furoate (Flonase Sensimist) 27.5 Mcg/Actuation Archer.susp, 2 SPRAYS NSEACH DAILY, (Reported) Entered as Reported by: MICHAEL GARZA on 03/19/22 0857 Gabapentin (Neurontin) 300 Mg Capsule, 900 MG PO TID, (Reported) Entered as Reported by: RADHA KATHLEEN on 04/03/22 1101 Ipratropium/Albuterol Sulfate (Iprat-Albut 0.5-3(2.5) mg/3 ml) 0.5 Mg-3 Mg (2.5 Mg Base)/3 Ml Ampul.neb, 3 ML IH Q6H PRN for SHORTNESS OF BREATH, (Reported) Entered as Reported by: MICHAEL GARZA on 03/19/22 0857 Lamotrigine (Lamotrigine) 25 Mg Tablet, 25 MG PO BID, (Reported) Entered as Reported by: SERENITY COPELAND on 11/08/21 113 Latanoprost (Xalatan) 0.005 % Drops, 1 DROP OU HS, (Reported) Entered as Reported by: SERENITY COPELAND on 11/08/21 113 Levocetirizine Dihydrochloride (Levocetirizine Dihydrochloride) 5 Mg Tablet, 5 MG PO DAILY, (Reported) Entered as Reported by: URSZULA BELL on 05/14/18 0828 Lidocaine (Lidocaine) 4 % Adh..patch, 1 EACH TP DAILY, (Reported) Entered as Reported by: MICHAEL GARZA on 03/19/22 0857 Lipase/Protease/Amylase (Zenpep Dr 40,000 Units Capsule) 40126-168 Capsule.dr, 2 EACH PO TID, (Reported) Entered as Reported by: MICHAEL GARZA on 03/19/22 0857 Meclizine HCl (Meclizine HCl) 25 Mg Tablet, 25 MG PO Q8H PRN for DIZZINESS, (Reported) Entered as Reported by: JESSICA GILMORE on 02/28/21 1353 Memantine HCl (Memantine HCl) 10 Mg Tablet, 10 MG PO DAILY, (Reported) Entered as Reported by: BIENVENIDO FARRELL on 07/28/15 1444 Montelukast Sodium (Montelukast Sodium) 10 Mg Tablet, 10 MG PO HS, (Reported) Entered as Reported by: SERENITY COPELAND on 11/08/21 1216 Naloxone HCl (Narcan) 4 Mg/Actuation Archer, 4 MG NS PRN, (Reported) Entered as Reported by: MICHAEL GARZA on 03/19/22 0857 Nicotine (Nicotrol) 10 Mg Cartridge, INHALER NS UD PRN for SMOKING CESSATION, (Reported) Entered as Reported by: SERENITY COPELAND on 11/08/21 1132 Nitroglycerin (Nitroglycerin) 0.4 Mg Tab.subl, 0.4 MG SL UD PRN for CHEST PAIN (ANGINA), (Reported) Entered as Reported by: SERENITY COPELAND on 11/08/21 113 Oxycodone HCl (Roxicodone) 15 Mg Tablet, 15 MG PO Q6H PRN for PAIN-SEVERE (8-10) Prescribed by: BAYLEE WHITE on 06/21/22 1200 Pantoprazole Sodium (Pantoprazole Sodium) 40 Mg Tablet.dr, 40 MG PO DAILY, (Reported) Entered as Reported by: MICHAEL GARZA on 03/19/22 0857 Primidone (Mysoline) 250 Mg Tablet, 250 MG PO BID, (Reported) Entered as Reported by: MICHAEL GARZA on 03/19/22 0857 Ropinirole HCl (Ropinirole HCl) 2 Mg Tablet, 4 MG PO HS, (Reported) Entered as Reported by: SERENITY COPELAND on 12/30/19 1728 Rosuvastatin Calcium (Rosuvastatin Calcium) 20 Mg Tablet, 20 MG PO DAILY, (Reported) Entered as Reported by: SERENITY COPELAND on 11/08/21 113 Suvorexant (Belsomra) 10 Mg Tablet, 10 MG PO HS, (Reported) Entered as Reported by: MICHAEL GARZA on 03/19/22 0857 Tiotropium Br/Olodaterol HCl (Stiolto Respimat Inhal Archer) 2.5 Mcg-2.5 Mcg/Actuation Mist.inhal, 4 GM IH DAILY, (Reported) Entered as Reported by: RADHA KATHLEEN on 04/03/22 1106 Trazodone HCl (Trazodone HCl) 100 Mg Tablet, 100 MG PO HS, (Reported) Entered as Reported by: MICHAEL GARZA on 03/19/22 0857 Review of Systems Review of Systems Constitutional: no symptoms reported Past Uwghzuh-Yhtshs-Pnlazm Hx Patient Social History Tobacco Use?: Yes Tobacco type used: Cigarettes Smoking Status: Current Everyday Smoker Substance use?: No Alcohol Use?: No Pt feels they are or have been: No Immunizations Up To Date Tetanus Booster (TDap): Unknown PED Vaccines UTD: No First/Initial COVID19 Vaccinat: UNKNOWN Second COVID19 Vaccination Hugo: UNKNOWN Third COVID19 Vaccination Date: UNKNOWN Seasonal Allergies Seasonal Allergies: Yes Past Medical History Surgery/Hospitalization HX: PMH;HF, COPD, AND STROKE HX., PALPATATIONS SURGERY; urostomy, TUBAL, AND EXPLORATORY, HEART CATH(03/28), Surgeries: Yes Cystectomy, Gallbladder, Orthopedic, Pancreatic Respiratory: Yes (HOME 02) COPD, Emphysema Currently Using CPAP: No Currently Using BIPAP: No Cardiac: Yes High Cholesterol, Irregular Heartbeat, Palpitations Neurological: Yes Seizure Disorder, TIA 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 Disorders: No 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 Disorders: Denies RESERVATIONIST History: Menopausal Sexually Transmitted Disease: No HIV/AIDS: No Genitourinary: Yes UTI-Chronic Gastrointestinal: Yes Gastroesophageal Reflux, Chronic Diarrhea Musculoskeletal: Yes (CERVICAL SUGERY) Arthritis, Back Injury Endocrine: Yes Diabetes, Non-Insulin dep HEENT: Yes (LEFT EAR HEARING IMPAIRMENT) Cataract Loss of Vision: Denies Hearing Impairment: Hard of Hearing Cancer: Yes Bladder Did You Recieve Any Treatments: Yes What Type of Treatment Did You: Surgical Intervention Psychosocial: No Anxiety, Depression Integumentary: No Psoriasis Blood Disorders: No Adverse Reaction/Blood Tranf: No Family Medical History Reviewed Nursing Family Hx Cardiovascular disease G8 BROTHER (TRIPLE BYPASS) Diabetes mellitus 19 MOTHER FH: COPD (chronic obstructive pulmonary disease) 19 MOTHER FH: breast cancer 19 MOTHER FHx: brain cancer 19 FATHER No Pertinent Family Hx Physical Exam Vital Signs Vital Signs - First Documented 06/30/22 07:45 Temp 36.5 Pulse 80 Resp 16 B/P (MAP) 136/71 (92) Pulse Ox 94 Capillary Refill : Less Than 3 Seconds Height, Weight, BMI Height: 5'4.00" Weight: 165lbs. 0.0oz. [id number]; 24.00 BMI Method:Stated General Appearance: No Apparent Distress, WD/WN HEENT: Normal ENT Inspection, Pharynx Normal Neck: Normal Inspection, Non Tender, Supple Respiratory: Chest Non Tender, Lungs Clear, Normal Breath Sounds, No Accessory Muscle Use, No Respiratory Distress Cardiovascular: Regular Rate, Rhythm, No Murmur, Normal Peripheral Pulses Gastrointestinal: Normal Bowel Sounds, No Organomegaly, No Pulsatile Mass, Non Tender, Soft, Other (Urostomy with dressing in the right mid abdomen.) Extremity: Normal Capillary Refill, Normal Inspection, Normal Range of Motion, Non Tender, No Calf Tenderness Neurologic/Psychiatric: Alert, Oriented x3 Skin: Normal Color, Warm/Dry Progress/Results/Core Measures Suspected Sepsis SIRS Temperature: Pulse: 80 Respiratory Rate: 16 Laboratory Tests 06/30/22 08:05: White Blood Count 6.0 Blood Pressure 136 /71 Mean: 92 Laboratory Tests 06/30/22 08:05: Creatinine 0.62, Platelet Count 189 Results/Orders Lab Results Laboratory Tests Test 06/30/22 08:05 06/30/22 09:04 Range/Units White Blood Count 6.0 4.3-11.0 10^3/uL Red Blood Count 4.48 3.80-5.11 10^6/uL Hemoglobin 13.3 11.5-16.0 g/dL Hematocrit 42 35-52 % Mean Corpuscular Volume 95 80-99 fL Mean Corpuscular Hemoglobin 30 25-34 pg Mean Corpuscular Hemoglobin Concent 31 L 32-36 g/dL Red Cell Distribution Width 14.2 10.0-14.5 % Platelet Count 189 130-400 10^3/uL Mean Platelet Volume 9.6 9.0-12.2 fL Immature Granulocyte % (Auto) 1 % Neutrophils (%) (Auto) 54 42-75 % Lymphocytes (%) (Auto) 32 12-44 % Monocytes (%) (Auto) 12 0-12 % Eosinophils (%) (Auto) 2 0-10 % Basophils (%) (Auto) 1 0-10 % Neutrophils # (Auto) 3.2 1.8-7.8 10^3/uL Lymphocytes # (Auto) 1.9 1.0-4.0 10^3/uL Monocytes # (Auto) 0.7 0.0-1.0 10^3/uL Eosinophils # (Auto) 0.1 0.0-0.3 10^3/uL Basophils # (Auto) 0.0 0.0-0.1 10^3/uL Immature Granulocyte # (Auto) 0.0 0.0-0.1 10^3/uL Sodium Level 140 135-145 MMOL/L Potassium Level 4.9 3.6-5.0 MMOL/L Chloride Level 110 H 98-107 MMOL/L Carbon Dioxide Level 16 L 21-32 MMOL/L Anion Gap 14 5-14 MMOL/L Blood Urea Nitrogen 13 7-18 MG/DL Creatinine 0.62 0.60-1.30 MG/DL Estimat Glomerular Filtration Rate 97 BUN/Creatinine Ratio 21 Glucose Level 81 70-105 MG/DL Calcium Level 9.7 8.5-10.1 MG/DL Urine Color YELLOW Urine Clarity CLEAR Urine pH 6.0 5-9 Urine Specific [place] <=1.005 1.016-1.022 Urine Protein NEGATIVE NEGATIVE Urine Glucose (UA) NEGATIVE NEGATIVE Urine Ketones NEGATIVE NEGATIVE Urine Nitrite NEGATIVE NEGATIVE Urine Bilirubin NEGATIVE NEGATIVE Urine Urobilinogen 0.2 < = 1.0 MG/DL Urine Leukocyte Esterase NEGATIVE NEGATIVE Urine RBC (Auto) 1+ H NEGATIVE Urine RBC 0-2 /HPF Urine WBC RARE /HPF Urine Crystals NONE /LPF Urine Bacteria TRACE /HPF Urine Casts NONE /LPF Urine Mucus NEGATIVE /LPF Urine Culture Indicated NO My Orders Orders - MAGALIE TOMLINSON DO Basic Metabolic Panel (06/30/22 07:50) Ua Culture If Indicated (06/30/22 07:50) Cbc With Automated Diff (06/30/22 07:50) Ns Iv 500 Ml (Sodium Chloride 0.9%) (06/30/22 08:00) Ondansetron Injection (Zofran Injectio (06/30/22 08:15) Ondansetron Injection (Zofran Injectio (06/30/22 08:17) Acetaminophen Tablet (Tylenol Tablet) (06/30/22 08:45) Medications Given in ED Current Medications Medications Dose Ordered Sig/[place] Route Start Time Stop Time Status Last Admin Dose Admin Ondansetron HCl 4 mg ONCE ONCE IVP 06/30/22 08:15 06/30/22 08:16 DC 06/30/22 08:18 4 MG Vital Signs/I&O 06/30/22 07:45 Temp 36.5 Pulse 80 Resp 16 B/P (MAP) 136/71 (92) Pulse Ox 94 Capillary Refill : Less Than 3 Seconds Blood Pressure Mean: 92 Departure Communication (Admissions) Patient is hemodynamically stable. She complains of decreased urine output. She may be dehydrated. Labs are reassuring. Her vital signs are normal. She has no significant physical exam findings. We will give her some IV fluids and she had about 150 to 200 cc of urine output thereafter. She is tolerating p.o. She did complain of some chronic back and shoulder pain while she was here. She states she is out of her oxycodone and requests this medication. Advised that was not willing to give her narcotic medication while she is here. She does take hydrocodone as well. I offered her p.o. Tylenol she states this makes her sick. I advised her that there is Tylenol in hydrocodone as well and she again declines the Tylenol. She is allergic to ibuprofen or Naprosyn so I cannot give her Toradol. Advise she would need follow-up with primary doctor for further evaluation of her chronic pain. Her pain is exactly the same as it has been and unchanged. Her urine is noninfected. Her renal function is normal. She is discharged home after IV fluids. She was given IV Zofran as well with a brief stint of nausea. Emergency department reported by the patient. She never had any vomiting. Impression Primary Impression: Decreased urine output Additional Impression: Cystostomy care Disposition: 01 HOME, SELF-CARE Condition: Stable Departure-Patient Inst. Referrals: SERENITY LONG DO (PCP/Family) Primary Care Physician Patient Instructions: How to Care for Your Urostomy or Continent Diversion Add. Discharge Instructions: Talk to your primary care doctor about management of your chronic pain. You have no evidence for any urinary infection. Your kidney function is normal as well. Urine output has been normal since you were given IV fluids. Please increase your fluid intake by mouth at home. Return to the emergency department for any severe concerns. All discharge instructions reviewed with patient and/or family. Voiced understanding. MAGALIE TOMLINSON DO Jun 30, 2022 08:05
[2022-06-30 08:11] LABS: BASOPHILS % (AUTO) 1 % (0-10); EOSINOPHILS # (AUTO) 0.1 10^3/uL (0.0-0.3); EOSINOPHILS % (AUTO) 2 % (0-10); HEMATOCRIT 42 % (35-52); HEMOGLOBIN 13.3 g/dL (11.5-16.0); LYMPHOCYTES # (AUTO) 1.9 10^3/uL (1.0-4.0); LYMPHOCYTES % (AUTO) 32 % (12-44); MEAN CORPUSCULAR HEMOGLOBIN 30 pg (25-34); MEAN CORPUSCULAR HGB CONC 31 g/dL (32-36); MEAN CORPUSCULAR VOLUME 95 fL (80-99); MEAN PLATELET VOLUME 9.6 fL (9.0-12.2); MONOCYTES # (AUTO) 0.7 10^3/uL (0.0-1.0); MONOCYTES % (AUTO) 12 % (0-12); NEUTROPHILS # (AUTO) 3.2 10^3/uL (1.8-7.8); NEUTROPHILS % (AUTO) 54 % (42-75); PLATELET COUNT 189 10^3/uL (130-400)
[2022-06-30] MEDS ORDERED: ONDANSETRON 4 MG/2 ML (SDV) Z0FRAN IVP ONE (08:15)
[2022-06-30] MEDS ORDERED: ONDANSETRON 4 MG/2 ML (SDV) Z0FRAN ONE (08:17)
[2022-06-30 08:23] LABS: POTASSIUM 4.9 MMOL/L (3.6-5.0)
[2022-06-30 08:24] LABS: CALCIUM 9.7 MG/DL (8.5-10.1)
[2022-06-30 08:28] LABS: CREATININE SERUM 0.62 MG/DL (0.60-1.30)
[2022-06-30] MEDS ORDERED: ACETAMINOPHEN 500 MG TAB (TYLENOL) PO ONE (08:45)
[2022-06-30 09:09] LABS: BILIRUBIN,URINE NEGATIVE (NEGATIVE); CLARITY,URINE CLEAR; COLOR,URINE YELLOW; GLUCOSE, URINE (UA) NEGATIVE (NEGATIVE); KETONES,URINE NEGATIVE (NEGATIVE); LEUKOCYTE ESTERASE ,URINE NEGATIVE (NEGATIVE); NITRITE,URINE NEGATIVE (NEGATIVE); PROTEIN,URINE NEGATIVE (NEGATIVE)
[2022-06-30 09:17] LABS: BACTERIA,URINE TRACE /HPF; RBC,URINE 0-2 /HPF; WBC,URINE RARE /HPF
[2022-06-30 09:35] VITALS: BP 117/80
== END 2022-06-30 09:35 | disposition home or self-care (01) ==
LOC: EDUNIT# 07:34 → ER 07:35
DX: Z43.5 Encounter for attention to cystostomy (principal); R11.0 Nausea; M54.9 Dorsalgia, unspecified; M25.519 Pain in unspecified shoulder; G89.29 Other chronic pain; F17.210 Nicotine dependence, cigarettes, uncomplicated; Z85.51 Personal history of malignant neoplasm of bladder
CPT/HCPCS: 36415; 80048; 81000; 85025

== ENCOUNTER 2022-07-21 15:29 | Emergency (ER) | payer MEDICARE, MEDICAID ==
[~2022-07-21] VITALS: Ht 162 cm; Wt 59.0 kg
[2022-07-21] MEDS ORDERED: NS IV 1000 ML 1,000 ML IV STA (16:26)
[2022-07-21] MEDS ORDERED: FAMOTIDINE 20 MG (PEPCID) TABLET PO STA (16:51)
[2022-07-21] MEDS ORDERED: fentaNYL INJ 100 MCG/2 ML AMP IVP STA ×2 (16:51→18:02)
[2022-07-21 16:59] LABS: BASOPHILS % (AUTO) 1 % (0-10); EOSINOPHILS # (AUTO) 0.2 10^3/uL (0.0-0.3); EOSINOPHILS % (AUTO) 3 % (0-10); HEMATOCRIT 44 % (35-52); HEMOGLOBIN 14.7 g/dL (11.5-16.0); LYMPHOCYTES # (AUTO) 1.3 10^3/uL (1.0-4.0); LYMPHOCYTES % (AUTO) 26 % (12-44); MEAN CORPUSCULAR HEMOGLOBIN 30 pg (25-34); MEAN CORPUSCULAR HGB CONC 33 g/dL (32-36); MEAN CORPUSCULAR VOLUME 91 fL (80-99); MEAN PLATELET VOLUME 9.9 fL (9.0-12.2); MONOCYTES # (AUTO) 0.6 10^3/uL (0.0-1.0); MONOCYTES % (AUTO) 11 % (0-12); NEUTROPHILS # (AUTO) 3.2 10^3/uL (1.8-7.8); NEUTROPHILS % (AUTO) 60 % (42-75); PLATELET COUNT 195 10^3/uL (130-400); WHITE BLOOD COUNT 5.3 10^3/uL (4.3-11.0)
[2022-07-21] MEDS ORDERED: PANTOPRAZOLE 40 MG (PROTONIX) VIAL IV ONE (17:00)
[2022-07-21] MEDS ORDERED: ONDANSETRON 4 MG/2 ML (SDV) Z0FRAN IVP ONE ×2 (17:00→18:00)
[2022-07-21 17:11] LABS: ALBUMIN 4.4 GM/DL (3.2-4.5); POTASSIUM 3.8 MMOL/L (3.6-5.0)
[2022-07-21 17:12] LABS: CALCIUM 9.5 MG/DL (8.5-10.1)
[2022-07-21 17:13] LABS: TOTAL PROTEIN 7.8 GM/DL (6.4-8.2)
[2022-07-21 17:15] LABS: BILIRUBIN,TOTAL 0.4 MG/DL (0.1-1.0)
[2022-07-21 17:17] LABS: CREATININE SERUM 0.65 MG/DL (0.60-1.30)
--- NOTE | 2022-07-21 17:57 | ED Abdominal Pain ---
General Chief Complaint: Abdominal/GI Problems Stated Complaint: DIARHEA Nursing Triage Note: [facility] PT STATES SHE WAS SENT OVER FOR ABD. PAIN AND THEY WERE NOT ABLE TO RUN LABS THERE. PT STATES SHE STARTED WITH NAUSEA THAT STARTED YESTERDAY AROUND 1400. DENIES KNOWN INJURY. PT AMB. TO ROOM 10 WITH SOME SHORTNESS OF BREATH. Source of Information: Patient Exam Limitations: No Limitations History of Present Illness Date Seen by Provider: Jul 21, 2022 Time Seen by Provider: 16:27 Initial Comments Here from [facility] urgent care with report of abdominal pain. She has had nausea and vomiting with diarrhea. Diarrhea. After taking Imodium. She was evaluated for COVID at the clinic and found to be positive. She does have some shortness of breath but this is chronic. She is not requiring oxygen. Denies fever. Biggest complaint is stomach upset and she has history of hiatal hernia repair and she is unable to vomit. She states that she has not been able to eat or drink well since being ill over the last couple of days. She is concerned about dehydration. Does have history of bladder cancer and has urostomy. Timing/Duration: 1-2 Days Severity/Quality: Moderate, Cramping, Other (Vomiting) Location: Generalized Abdomen Radiation: No Radiation Activities at Onset: None Associated Symptoms: Nausea/Vomiting, Shortness of Air, Weakness Allergies and Home Medications Allergies Coded Allergies: bacitracin (Verified Allergy, Intermediate, "I BREAK OUT IN A RASH ALL OVER.", 04/02/22) neomycin (Verified Allergy, Intermediate, "I BREAK OUT IN A RASH ALL OVER.", 04/02/22) polymyxin B (Verified Allergy, Intermediate, "I BREAK OUT IN A RASH ALL OVER.", 04/02/22) ibuprofen (Verified Allergy, Mild, RASH, 04/02/22) naproxen (Verified Allergy, Mild, RASH, 04/02/22) strawberry (Verified Allergy, Mild, 04/02/22) sulfamethoxazole (Verified Allergy, Unknown, 04/02/22) tramadol (Verified Allergy, Unknown, Has rec lortab & oxycodone in the past, 06/21/22) trimethoprim (Verified Allergy, Unknown, 04/02/22) Patient Home Medication List Home Medication List Reviewed: Yes Albuterol Sulfate (Proventil Hfa) 90 Mcg Hfa.aer.ad, 2 PUFF INH Q6H PRN for WHEEZING, (Reported) Entered as Reported by: MICHAEL GARZA on 03/19/22 0857 Alosetron HCl (Alosetron HCl) 0.5 Mg Tablet, 0.5 MG PO BID, (Reported) Entered as Reported by: MICHAEL GARZA on 03/19/22 0857 Apixaban (Eliquis) 5 Mg Tablet, 5 MG PO BID, (Reported) Entered as Reported by: GRETA MANCILLA on 07/11/17 1530 Benzonatate (Tessalon Perles) 100 Mg Capsule, 200 MG PO Q8H PRN for cough Prescribed by: GINA GUTIERREZ on 02/10/22 1611 Buspirone HCl (Buspirone HCl) 15 Mg Tablet, 15 MG PO TID, (Reported) Entered as Reported by: SERENITY COPELAND on 11/08/21 1216 Clonazepam (Clonazepam) 1 Mg Tablet, 1 MG PO BID, (Reported) Entered as Reported by: JAMIE GOVEA on 04/20/19 1024 Cyclobenzaprine HCl (Cyclobenzaprine HCl) 10 Mg Tablet, 10 MG PO TID PRN for SPASMS, (Reported) Entered as Reported by: MICHAEL GARZA on 03/19/22 0857 Dapagliflozin Propanediol (Farxiga) 5 Mg Tablet, 5 MG PO DAILY, (Reported) Entered as Reported by: GRETA MANCILLA on 05/21/18 1455 Diltiazem HCl (Diltiazem HCl) 90 Mg Tablet, 90 MG PO TID, (Reported) Entered as Reported by: SERENITY COPELAND on 11/08/21 1132 Eluxadoline (Viberzi) 75 Mg Tablet, 75 MG PO BID, (Reported) Entered as Reported by: MICHAEL GARZA on 03/19/22 0857 Epinephrine (Epipen) 0.3 Mg/0.3 Ml Auto.injct, 0.3 MG IJ PRN, (Reported) Entered as Reported by: MICHAEL GARZA on 03/19/22 0857 Erenumab-Aooe (Aimovig Autoinjector) 70 Mg/1 Ml Auto.injct, 70 MG MONTHLY, (Reported) Entered as Reported by: SERENITY COPELAND on 12/30/19 1728 Ertapenem Sodium (Ertapenem) 1 Gram Vial, 1 GM IM DAILY Prescribed by: BAYLEE WHITE on 04/03/22 1029 Fludrocortisone Acetate (Fludrocortisone Acetate) 0.1 Mg Tab, 0.1 MG PO EVERY OTHER DAY, (Reported) Entered as Reported by: SERENITY COPELAND on 11/08/21 1132 Fluticasone Furoate (Flonase Sensimist) 27.5 Mcg/Actuation [place].susp, 2 SPRAYS NSEACH DAILY, (Reported) Entered as Reported by: MICHAEL GARZA on 03/19/22 0857 Gabapentin (Neurontin) 300 Mg Capsule, 900 MG PO TID, (Reported) Entered as Reported by: RADHA KATHLEEN on 04/03/22 1101 Ipratropium/Albuterol Sulfate (Iprat-Albut 0.5-3(2.5) mg/3 ml) 0.5 Mg-3 Mg (2.5 Mg Base)/3 Ml Ampul.neb, 3 ML IH Q6H PRN for SHORTNESS OF BREATH, (Reported) Entered as Reported by: MICHAEL GARZA on 03/19/22 0857 Lamotrigine (Lamotrigine) 25 Mg Tablet, 25 MG PO BID, (Reported) Entered as Reported by: SERENITY COPELAND on 11/08/21 1132 Latanoprost (Xalatan) 0.005 % Drops, 1 DROP OU HS, (Reported) Entered as Reported by: SERENITY COPELAND on 11/08/21 1132 Levocetirizine Dihydrochloride (Levocetirizine Dihydrochloride) 5 Mg Tablet, 5 MG PO DAILY, (Reported) Entered as Reported by: URSZULA BELL on 05/14/18 0828 Lidocaine (Lidocaine) 4 % Adh..patch, 1 EACH TP DAILY, (Reported) Entered as Reported by: MICHAEL GARZA on 03/19/22 0857 Lipase/Protease/Amylase (Zenpep Dr 40,000 Units Capsule) 40-126-168 Capsule.dr, 2 EACH PO TID, (Reported) Entered as Reported by: MICHAEL GARZA on 03/19/22 0857 Meclizine HCl (Meclizine HCl) 25 Mg Tablet, 25 MG PO Q8H PRN for DIZZINESS, (Reported) Entered as Reported by: JESSICA GILMORE on 02/28/21 1353 Memantine HCl (Memantine HCl) 10 Mg Tablet, 10 MG PO DAILY, (Reported) Entered as Reported by: BIENVENIDO FARRELL on 07/28/15 1444 Montelukast Sodium (Montelukast Sodium) 10 Mg Tablet, 10 MG PO HS, (Reported) Entered as Reported by: SERENITY COPELAND on 11/08/21 1216 Naloxone HCl (Narcan) 4 Mg/Actuation [place], 4 MG NS PRN, (Reported) Entered as Reported by: MICHAEL GARZA on 03/19/22 0857 Nicotine (Nicotrol) 10 Mg Cartridge, INHALER NS UD PRN for SMOKING CESSATION, (Reported) Entered as Reported by: SERENITY COPELAND on 11/08/21 1132 Nitroglycerin (Nitroglycerin) 0.4 Mg Tab.subl, 0.4 MG SL UD PRN for CHEST PAIN (ANGINA), (Reported) Entered as Reported by: SERENITY COPELAND on 11/08/21 113 Oxycodone HCl (Roxicodone) 15 Mg Tablet, 15 MG PO Q6H PRN for PAIN-SEVERE (8-10) Prescribed by: BAYLEE WHITE on 06/21/22 1200 Pantoprazole Sodium (Pantoprazole Sodium) 40 Mg Tablet.dr, 40 MG PO DAILY, (Reported) Entered as Reported by: MICHAEL GARZA on 03/19/22 08 Primidone (Mysoline) 250 Mg Tablet, 250 MG PO BID, (Reported) Entered as Reported by: MICHAEL GARZA on 03/19/22 0857 Ropinirole HCl (Ropinirole HCl) 2 Mg Tablet, 4 MG PO HS, (Reported) Entered as Reported by: SERENITY COPELAND on 12/30/19 1728 Rosuvastatin Calcium (Rosuvastatin Calcium) 20 Mg Tablet, 20 MG PO DAILY, (Reported) Entered as Reported by: SERENITY COPELAND on 11/08/21 113 Suvorexant (Belsomra) 10 Mg Tablet, 10 MG PO HS, (Reported) Entered as Reported by: MICHAEL GARZA on 03/19/22 0857 Tiotropium Br/Olodaterol HCl (Stiolto Respimat Inhal [place]) 2.5 Mcg-2.5 Mcg/Actuation Mist.inhal, 4 GM IH DAILY, (Reported) Entered as Reported by: RADHA KATHLEEN on 04/03/22 1106 Trazodone HCl (Trazodone HCl) 100 Mg Tablet, 100 MG PO HS, (Reported) Entered as Reported by: MICHAEL GARZA on 03/19/22 0857 Review of Systems Review of Systems Constitutional: see HPI; No fever, No weakness EENTM: No Nose Congestion, No Throat Pain Respiratory: Denies Cough; Shortness of Air Cardiovascular: Denies Chest Pain, Denies Edema Gastrointestinal: Diarrhea, Nausea Genitourinary: No Symptoms Reported Musculoskeletal: no symptoms reported All Other Systems Reviewed Negative Unless Noted: Yes Past Vozqudj-[id number]-Vdijfv Hx Patient Social History Tobacco Use?: Yes Tobacco type used: Cigarettes Smoking Status: Current Everyday Smoker Use of E-Cig and/or Vaping dev: No Substance use?: No Alcohol Use?: No Pt feels they are or have been: No Immunizations Up To Date Tetanus Booster (TDap): Unknown PED Vaccines UTD: No First/Initial COVID19 Vaccinat: 2021 Second COVID19 Vaccination Hugo: 2021 Third COVID19 Vaccination Date: 2021 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 Seasonal Allergies Seasonal Allergies: Yes Past Medical History Surgery/Hospitalization HX: PMH;HF, COPD, AND STROKE HX., PALPATATIONS SURGERY; urostomy, TUBAL, AND EXPLORATORY, HEART CATH(03/28), BILATERAL HIP AND KNEE REPLACEMENTS, FOUR NECK SURGERIES Surgeries: Yes Cystectomy, Gallbladder, Orthopedic, Pancreatic Respiratory: Yes (HOME 02) COPD, Emphysema Currently Using CPAP: No Currently Using BIPAP: No Cardiac: Yes High Cholesterol, Irregular Heartbeat, Palpitations Neurological: Yes Seizure Disorder, TIA 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 Disorders: No 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 Sexually Transmitted Disease: No HIV/AIDS: No Genitourinary: Yes UTI-Chronic Gastrointestinal: Yes Gastroesophageal Reflux, Chronic Diarrhea Musculoskeletal: Yes (CERVICAL SUGERY) Arthritis, Back Injury Endocrine: Yes Diabetes, Non-Insulin dep HEENT: Yes (LEFT EAR HEARING IMPAIRMENT) Cataract Loss of Vision: Denies Hearing Impairment: Hard of Hearing Cancer: Yes Bladder Did You Recieve Any Treatments: Yes What Type of Treatment Did You: Surgical Intervention Psychosocial: No Anxiety, Depression Integumentary: No Psoriasis Blood Disorders: No Adverse Reaction/Blood Tranf: No Family Medical History Reviewed Nursing Family Hx Cardiovascular disease G8 BROTHER (TRIPLE BYPASS) Diabetes mellitus 19 MOTHER FH: COPD (chronic obstructive pulmonary disease) 19 MOTHER FH: breast cancer 19 MOTHER FHx: brain cancer 19 FATHER No Pertinent Family Hx Physical Exam Vital Signs Vital Signs - First Documented 07/21/22 16:05 Temp 36.3 Pulse 69 Resp 20 B/P (MAP) 155/72 (99) O2 Delivery Room Air Capillary Refill : Less Than 3 Seconds Height/Weight/BMI Height: 5'4.00" Weight: 165lbs. 0.0oz. [id number]; 22.00 BMI Method:Stated General Appearance: WD/WN, no apparent distress HEENT: PERRL/EOMI, pharynx normal Neck: full range of motion, supple Respiratory: no accessory muscle use (Few scattered wheezes), wheezing Cardiovascular: regular rate, rhythm, no murmur Gastrointestinal: non tender, soft, other (Urostomy right lower quadrant) Extremities: non-tender, normal inspection Back: normal inspection, no CVA tenderness, no vertebral tenderness Neurologic/Psychiatric: alert, oriented x 3 Skin: normal color, warm/dry Progress/Results/Core Measures Results/Orders Lab Results Laboratory Tests Test 07/21/22 16:45 Range/Units White Blood Count 5.3 4.3-11.0 10^3/uL Red Blood Count 4.86 3.80-5.11 10^6/uL Hemoglobin 14.7 11.5-16.0 g/dL Hematocrit 44 35-52 % Mean Corpuscular Volume 91 80-99 fL Mean Corpuscular Hemoglobin 30 25-34 pg Mean Corpuscular Hemoglobin Concent 33 32-36 g/dL Red Cell Distribution Width 14.6 H 10.0-14.5 % Platelet Count 195 130-400 10^3/uL Mean Platelet Volume 9.9 9.0-12.2 fL Immature Granulocyte % (Auto) 0 % Neutrophils (%) (Auto) 60 42-75 % Lymphocytes (%) (Auto) 26 12-44 % Monocytes (%) (Auto) 11 0-12 % Eosinophils (%) (Auto) 3 0-10 % Basophils (%) (Auto) 1 0-10 % Neutrophils # (Auto) 3.2 1.8-7.8 10^3/uL Lymphocytes # (Auto) 1.3 1.0-4.0 10^3/uL Monocytes # (Auto) 0.6 0.0-1.0 10^3/uL Eosinophils # (Auto) 0.2 0.0-0.3 10^3/uL Basophils # (Auto) 0.0 0.0-0.1 10^3/uL Immature Granulocyte # (Auto) 0.0 0.0-0.1 10^3/uL Sodium Level 140 135-145 MMOL/L Potassium Level 3.8 3.6-5.0 MMOL/L Chloride Level 109 H 98-107 MMOL/L Carbon Dioxide Level 18 L 21-32 MMOL/L Anion Gap 13 5-14 MMOL/L Blood Urea Nitrogen 12 7-18 MG/DL Creatinine 0.65 0.60-1.30 MG/DL Estimat Glomerular Filtration Rate 95 BUN/Creatinine Ratio 18 Glucose Level 113 H 70-105 MG/DL Calcium Level 9.5 8.5-10.1 MG/DL Corrected Calcium 9.2 8.5-10.1 MG/DL Total Bilirubin 0.4 0.1-1.0 MG/DL Aspartate Amino Transf (AST/SGOT) 65 H 5-34 U/L Alanine Aminotransferase (ALT/SGPT) 64 H 0-55 U/L Alkaline Phosphatase 115 40-136 U/L C-Reactive Protein High Sensitivity 1.36 H 0.00-0.50 MG/DL Total Protein 7.8 6.4-8.2 GM/DL Albumin 4.4 3.2-4.5 GM/DL My Orders Orders - CRISTIANE MCWILLIAMS MD Cbc With Automated Diff (07/21/22 16:26) Comprehensive Metabolic Panel (07/21/22 16:26) Hs C Reactive Protein (07/21/22 16:26) Ns Iv 1000 Ml (Sodium Chloride 0.9%) (07/21/22 16:26) Ed Iv/Invasive Line Start (07/21/22 16:26) Ondansetron Injection (Zofran Injectio (07/21/22 17:00) Fentanyl Inj (Sublimaze Injection) (07/21/22 16:51) Pantoprazole Injection (Protonix Injecti (07/21/22 17:00) Famotidine Tablet (Pepcid Tablet) (07/21/22 16:51) Ns Iv 500 Ml (Sodium Chloride 0.9%) (07/21/22 18:00) Ondansetron Injection (Zofran Injectio (07/21/22 18:00) Fentanyl Inj (Sublimaze Injection) (07/21/22 18:02) Medications Given in ED Current Medications Medications Dose Ordered Sig/[place] Route Start Time Stop Time Status Last Admin Dose Admin Ondansetron HCl 4 mg ONCE ONCE IVP 07/21/22 17:00 07/21/22 17:01 DC 07/21/22 16:59 4 MG Ondansetron HCl 4 mg ONCE ONCE IVP 07/21/22 18:00 07/21/22 18:01 DC 07/21/22 17:57 4 MG Pantoprazole 40 mg ONCE ONCE IV 07/21/22 17:00 07/21/22 17:01 DC 07/21/22 17:01 40 MG Sodium Chloride 500 ml @ 0 mls/hr Q0M ONCE IV 07/21/22 18:00 07/21/22 18:01 DC 07/21/22 17:57 500 MLS/HR Vital Signs/I&O 07/21/22 16:05 Temp 36.3 Pulse 69 Resp 20 B/P (MAP) 155/72 (99) O2 Delivery Room Air Blood Pressure Mean: 99 Progress Progress Note : Progress Note Seen and evaluated. IV, labs including CBC, CMP and CRP ordered. Normal saline 1 L bolus, Zofran 4 mg IV and fentanyl 50 mcg IV ordered. Monitor patient. Differential diagnosis includes dehydration, electrolyte abnormality, viral illness 1652: I have added Pepcid 20 mg p.o. and Protonix 40 mg IV. 1745: Labs reviewed and CBC is grossly normal. CMP does not show significant abnormality and CRP is low at just over 1. No indication for admission. We will repeat normal saline 500 mL bolus and give Zofran 4 mg IV. 1803: Patient is requesting repeat dose of pain medicine which we will do x1. Still no indication for admission and she should do well at home. Patient agrees. Discharged at completion of IV fluid. 1840: Overall feeling much better. Discharged home with return precautions. Patient verbalized understand instructions and agreement with plan. Departure Impression Primary Impression: Nausea vomiting and diarrhea Additional Impression: COVID-19 virus infection Disposition: 01 HOME, SELF-CARE Condition: Stable Departure-Patient Inst. Decision time for Depature: 18:08 Referrals: SERENITY LONG DO (PCP/Family) Primary Care Physician Patient Instructions: COVID-19 (DC), Nausea and Vomiting, Adult, Diarrhea, Adult ED Add. Discharge Instructions: All discharge instructions reviewed with patient and/or family. Voiced understanding. Continue home medications as previously prescribed. Clear a light diet for the next 24 hours and then advance as tolerated. Drink plenty of fluids by taking small sips frequently. You may continue your ondansetron for nausea per prescription. You may take [id number] Tylenol/acetaminophen 650 mg every 6 hours as needed for fever or pain. Follow-up with your doctor in the next few days for recheck. Return for worse pain, fever, vomiting, weakness, breathing problems or other concerns as needed. CRISTIANE MCWILLIAMS MD Jul 21, 2022 17:56
[2022-07-21] MEDS ORDERED: NS IV 500 ML 500 ML IV ONE (18:00)
[2022-07-21 19:10] VITALS: BP 120/72
== END 2022-07-21 19:10 | disposition home or self-care (01) ==
LOC: EDUNIT# 15:29 → ER 15:32
DX: U07.1 COVID-19 (principal); R11.2 Nausea with vomiting, unspecified; R19.7 Diarrhea, unspecified; R06.02 Shortness of breath; F17.210 Nicotine dependence, cigarettes, uncomplicated; Z88.5 Allergy status to narcotic agent
CPT/HCPCS: 36415; 80053; 85025; 86141

== ENCOUNTER 2022-07-31 13:31 | Emergency (ER) | payer MEDICARE, MEDICAID ==
[~2022-07-31] VITALS: Ht 162 cm; Wt 63.0 kg
[2022-07-31] MEDS ORDERED: KETOROLAC 60 MG/2 ML VIAL IM ONE (14:00)
[2022-07-31] MEDS ORDERED: LIDOCAINE 4% (SALONPAS) PATCH ONE (14:12)
--- NOTE | 2022-07-31 14:13 | ED General ---
General Chief Complaint: Breast Complaints Stated Complaint: RT SIDE BREAST PAIN Nursing Triage Note: PT AMB TO RM 3 PT CO OF R BREAST PAIN /10 AFTER HAVING BREAST EXAM YESTERDAY IN PCP OFFICE, PT HAS CHIP FOR CA IN R BREAST. PT STATES HAS STABBING PAIN. PT HAS ILEOSTOMY IN PLACE. Source of Information: Patient Exam Limitations: No Limitations History of Present Illness Date Seen by Provider: Jul 31, 2022 Time Seen by Provider: 13:50 Initial Comments 67-year-old female presents to the ED with complaints of right breast pain starting yesterday after she had a breast exam completed by her primary care provider. Patient reports she has not taken any pain medication for this. She called the clinic who told her to apply a heating pad. Patient reports she has a chip in her right breast that was placed many years ago for breast cancer. Patient believes that the chip has moved and that is what is causing her pain. She is not currently being treated for breast cancer. Allergies and Home Medications Allergies Coded Allergies: bacitracin (Verified Allergy, Intermediate, "I BREAK OUT IN A RASH ALL OVER.", 04/02/22) neomycin (Verified Allergy, Intermediate, "I BREAK OUT IN A RASH ALL OVER.", 04/02/22) polymyxin B (Verified Allergy, Intermediate, "I BREAK OUT IN A RASH ALL OVER.", 04/02/22) ibuprofen (Verified Allergy, Mild, RASH, 04/02/22) naproxen (Verified Allergy, Mild, RASH, 04/02/22) strawberry (Verified Allergy, Mild, 04/02/22) sulfamethoxazole (Verified Allergy, Unknown, 04/02/22) tramadol (Verified Allergy, Unknown, Has rec lortab & oxycodone in the past, 06/21/22) trimethoprim (Verified Allergy, Unknown, 04/02/22) Patient Home Medication List Home Medication List Reviewed: Yes Albuterol Sulfate (Proventil Hfa) 90 Mcg Hfa.aer.ad, 2 PUFF INH Q6H PRN for WHEEZING, (Reported) Entered as Reported by: MICHAEL GARZA on 03/19/22 0857 Alosetron HCl (Alosetron HCl) 0.5 Mg Tablet, 0.5 MG PO BID, (Reported) Entered as Reported by: MICHAEL GARZA on 03/19/22 08 Apixaban (Eliquis) 5 Mg Tablet, 5 MG PO BID, (Reported) Entered as Reported by: GRETA MANCILLA on 07/11/17 1530 Benzonatate (Tessalon Perles) 100 Mg Capsule, 200 MG PO Q8H PRN for cough Prescribed by: GINA GUTIERREZ on 02/10/22 1611 Buspirone HCl (Buspirone HCl) 15 Mg Tablet, 15 MG PO TID, (Reported) Entered as Reported by: SERENITY COPELAND on 11/08/21 1216 Clonazepam (Clonazepam) 1 Mg Tablet, 1 MG PO BID, (Reported) Entered as Reported by: JAMIE GOVEA on 04/20/19 1024 Cyclobenzaprine HCl (Cyclobenzaprine HCl) 10 Mg Tablet, 10 MG PO TID PRN for SPASMS, (Reported) Entered as Reported by: MICHAEL GARZA on 03/19/22 0857 Dapagliflozin Propanediol (Farxiga) 5 Mg Tablet, 5 MG PO DAILY, (Reported) Entered as Reported by: GRETA MANCILLA on 05/21/18 1455 Diltiazem HCl (Diltiazem HCl) 90 Mg Tablet, 90 MG PO TID, (Reported) Entered as Reported by: SERENITY COPELAND on 11/08/21 1132 Eluxadoline (Viberzi) 75 Mg Tablet, 75 MG PO BID, (Reported) Entered as Reported by: MICHAEL GARZA on 03/19/22 0857 Epinephrine (Epipen) 0.3 Mg/0.3 Ml Auto.injct, 0.3 MG IJ PRN, (Reported) Entered as Reported by: MICHAEL GARZA on 03/19/22 0857 Erenumab-Aooe (Aimovig Autoinjector) 70 Mg/1 Ml Auto.injct, 70 MG MONTHLY, (Reported) Entered as Reported by: SERENITY COPELAND on 12/30/19 1728 Ertapenem Sodium (Ertapenem) 1 Gram Vial, 1 GM IM DAILY Prescribed by: BAYLEE WHITE on 04/03/22 1029 Fludrocortisone Acetate (Fludrocortisone Acetate) 0.1 Mg Tab, 0.1 MG PO EVERY OTHER DAY, (Reported) Entered as Reported by: SERENITY COPELAND on 11/08/21 1132 Fluticasone Furoate (Flonase Sensimist) 27.5 Mcg/Actuation [place].susp, 2 SPRAYS NSEACH DAILY, (Reported) Entered as Reported by: MICHAEL GARZA on 03/19/22 0857 Gabapentin (Neurontin) 300 Mg Capsule, 900 MG PO TID, (Reported) Entered as Reported by: RADHA KATHLEEN on 04/03/22 1101 Ipratropium/Albuterol Sulfate (Iprat-Albut 0.5-3(2.5) mg/3 ml) 0.5 Mg-3 Mg (2.5 Mg Base)/3 Ml Ampul.neb, 3 ML IH Q6H PRN for SHORTNESS OF BREATH, (Reported) Entered as Reported by: MICHAEL GARZA on 03/19/22 08 Lamotrigine (Lamotrigine) 25 Mg Tablet, 25 MG PO BID, (Reported) Entered as Reported by: SERENITY COPELAND on 11/08/21 1132 Latanoprost (Xalatan) 0.005 % Drops, 1 DROP OU HS, (Reported) Entered as Reported by: SERENITY COPELAND on 11/08/21 1132 Levocetirizine Dihydrochloride (Levocetirizine Dihydrochloride) 5 Mg Tablet, 5 MG PO DAILY, (Reported) Entered as Reported by: URSZULA BELL on 05/14/18 0828 Lidocaine (Lidocaine) 4 % Adh..patch, 1 EACH TP DAILY, (Reported) Entered as Reported by: MICHAEL GARZA on 03/19/22 0857 Lipase/Protease/Amylase (Zenpep Dr 40,000 Units Capsule) 40-126-168 Capsule.dr, 2 EACH PO TID, (Reported) Entered as Reported by: MICHAEL GARZA on 03/19/22 0857 Meclizine HCl (Meclizine HCl) 25 Mg Tablet, 25 MG PO Q8H PRN for DIZZINESS, (Reported) Entered as Reported by: JESSICA GILMORE on 02/28/21 1353 Memantine HCl (Memantine HCl) 10 Mg Tablet, 10 MG PO DAILY, (Reported) Entered as Reported by: BIENVENIDO FARRELL on 07/28/15 1444 Montelukast Sodium (Montelukast Sodium) 10 Mg Tablet, 10 MG PO HS, (Reported) Entered as Reported by: SERENITY COPELADN on 11/08/21 1216 Naloxone HCl (Narcan) 4 Mg/Actuation [place], 4 MG NS PRN, (Reported) Entered as Reported by: MICHAEL GARZA on 03/19/22 0857 Nicotine (Nicotrol) 10 Mg Cartridge, INHALER NS UD PRN for SMOKING CESSATION, (Reported) Entered as Reported by: SERENITY COPELAND on 11/08/21 113 Nitroglycerin (Nitroglycerin) 0.4 Mg Tab.subl, 0.4 MG SL UD PRN for CHEST PAIN (ANGINA), (Reported) Entered as Reported by: SERENITY COPELAND on 11/08/21 113 Oxycodone HCl (Roxicodone) 15 Mg Tablet, 15 MG PO Q6H PRN for PAIN-SEVERE (8-10) Prescribed by: BAYLEE WHITE on 06/21/22 1200 Pantoprazole Sodium (Pantoprazole Sodium) 40 Mg Tablet.dr, 40 MG PO DAILY, (Reported) Entered as Reported by: MICHAEL GARZA on 03/19/22 08 Primidone (Mysoline) 250 Mg Tablet, 250 MG PO BID, (Reported) Entered as Reported by: MICHAEL GARZA on 03/19/22 0857 Ropinirole HCl (Ropinirole HCl) 2 Mg Tablet, 4 MG PO HS, (Reported) Entered as Reported by: SERENITY COPELAND on 12/30/19 1728 Rosuvastatin Calcium (Rosuvastatin Calcium) 20 Mg Tablet, 20 MG PO DAILY, (Reported) Entered as Reported by: SERENITY COPELAND on 11/08/21 113 Suvorexant (Belsomra) 10 Mg Tablet, 10 MG PO HS, (Reported) Entered as Reported by: MICHAEL GARZA on 03/19/22 0857 Tiotropium Br/Olodaterol HCl (Stiolto Respimat Inhal [place]) 2.5 Mcg-2.5 Mcg/Actuation Mist.inhal, 4 GM IH DAILY, (Reported) Entered as Reported by: RADHA KATHLEEN on 04/03/22 1106 Trazodone HCl (Trazodone HCl) 100 Mg Tablet, 100 MG PO HS, (Reported) Entered as Reported by: MICHAEL GAZRA on 03/19/22 0857 Review of Systems Review of Systems Constitutional: no symptoms reported Pain and right breast Past Tmynngh-Xrjciz-Ygowhj Hx Patient Social History Tobacco Use?: Yes Tobacco type used: Cigarettes Smoking Status: Current Everyday Smoker Substance use?: No Alcohol Use?: No Pt feels they are or have been: No Immunizations Up To Date Tetanus Booster (TDap): Unknown PED Vaccines UTD: No Influenza Vaccine Up-to-Date: Yes; Up-to-Date First/Initial COVID19 Vaccinat: 2021 Second COVID19 Vaccination Hugo: 2021 Third COVID19 Vaccination Date: 2021 Seasonal Allergies Seasonal Allergies: Yes Past Medical History Surgery/Hospitalization HX: PMH;HF, COPD, AND STROKE HX., PALPATATIONS SURGERY; urostomy, TUBAL, AND EXPLORATORY, HEART CATH(03/28), BILATERAL HIP AND KNEE REPLACEMENTS, FOUR NECK SURGERIES Surgeries: Yes Cystectomy, Gallbladder, Orthopedic, Pancreatic Respiratory: Yes (HOME ) COPD, Emphysema Currently Using CPAP: No Currently Using BIPAP: No Cardiac: Yes High Cholesterol, Irregular Heartbeat, Palpitations Neurological: Yes Seizure Disorder, TIA 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 Disorders: No 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 Disorders: Denies 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 Sexually Transmitted Disease: No HIV/AIDS: No Genitourinary: Yes UTI-Chronic Gastrointestinal: Yes Gastroesophageal Reflux, Chronic Diarrhea Musculoskeletal: Yes (CERVICAL SUGERY) Arthritis, Back Injury Endocrine: Yes Diabetes, Non-Insulin dep HEENT: Yes (LEFT EAR HEARING IMPAIRMENT) Cataract Loss of Vision: Denies Hearing Impairment: Hard of Hearing Cancer: Yes Bladder Did You Recieve Any Treatments: Yes What Type of Treatment Did You: Surgical Intervention Psychosocial: No Anxiety, Depression Integumentary: No Psoriasis Blood Disorders: No Adverse Reaction/Blood Tranf: No Family Medical History Cardiovascular disease G8 BROTHER (TRIPLE BYPASS) Diabetes mellitus 19 MOTHER FH: COPD (chronic obstructive pulmonary disease) 19 MOTHER FH: breast cancer 19 MOTHER FHx: brain cancer 19 FATHER No Pertinent Family Hx Physical Exam Vital Signs Vital Signs - First Documented 07/31/22 13:40 Temp 35.3 Pulse 85 Resp 18 B/P (MAP) 113/78 (90) Pulse Ox 96 O2 Delivery Room Air Capillary Refill : Less Than 3 Seconds Height, Weight, BMI Height: 5'4.00" Weight: 165lbs. 0.0oz. 72.147087sw; 24.00 BMI Method:Stated General Appearance: No Apparent Distress, WD/WN Neck: Non Tender, Supple Respiratory: Lungs Clear, Normal Breath Sounds, No Accessory Muscle Use, No Respiratory Distress Cardiovascular: Regular Rate, Rhythm Neurologic/Psychiatric: Alert, Normal Mood/Affect Skin: Normal Color, Warm/Dry Comments Right breast tender to palpation, left breast nontender Progress/Results/Core Measures Suspected Sepsis SIRS Temperature: Pulse: 85 Respiratory Rate: 18 Blood Pressure 113 /78 Mean: 90 Results/Orders My Orders Orders - DARIN FRANCES APRN Ketorolac Injection (Toradol Injection) (07/31/22 14:00) Lidocaine 4% Patch (Salonpas 4% Patch) (08/01/22 09:00) Lidocaine 4% Patch (Salonpas 4% Patch) (07/31/22 14:12) Hydrocodone/Apap 10/325 Tablet (Lortab 1 (07/31/22 15:30) Medications Given in ED Current Medications Medications Dose Ordered Sig/[place] Route Start Time Stop Time Status Last Admin Dose Admin Acetaminophen/ Hydrocodone Bitart 1 ea ONCE ONCE PO 07/31/22 15:30 07/31/22 15:31 07/31/22 15:26 1 EA Ketorolac Tromethamine 30 mg ONCE ONCE IM 07/31/22 14:00 07/31/22 14:01 DC 07/31/22 14:11 30 MG Vital Signs/I&O 07/31/22 13:40 Temp 35.3 Pulse 85 Resp 18 B/P (MAP) 113/78 (90) Pulse Ox 96 O2 Delivery Room Air Capillary Refill : Less Than 3 Seconds Blood Pressure Mean: 90 Progress Note : Time: 14:25 Progress Note Patient seen and evaluated, resting comfortably in bed, no acute distress. Will treat with oral Toradol and lidocaine patch. 1526 patient reports pain has not improved. Will order dose of Counselor here now, and discharge with short course of Counselor and have patient follow-up with primary care provider. Discharge instructions and return precaution provided. Departure Impression Primary Impression: Breast pain Disposition: HOME, SELF-CARE Condition: Stable Departure-Patient Inst. Decision time for Depature: 15:27 Referrals: SERENITY LONG DO (PCP/Family) Primary Care Physician Patient Instructions: Mastalgia Add. Discharge Instructions: Take Counselor as needed for pain. Try heat or ice to breast. Follow-up with Dr. Long this week if pain continues. Return for any new, concerning, or worsening symptoms. All discharge instructions reviewed with patient and/or family. Voiced understanding. Scripts Hydrocodone/Acetaminophen (Hydrocodone-Acetamin 5-325 mg) 5 Mg-325 Mg Tablet 1 TAB PO Q4H PRN for PAIN-MODERATE (5-7), #10 TAB 0 Refills Prov: DARIN FRANCES APRN 07/31/22 DARIN FRANCES APRN Jul 31, 2022 14:13
[2022-07-31] MEDS ORDERED: ACHD5005 PO (15:28)
[2022-07-31 15:33] VITALS: BP 113/78
[2022-08-01] MEDS ORDERED: LIDOCAINE 4% (SALONPAS) PATCH TOP SCH (09:00)
== END 2022-07-31 15:33 | disposition home or self-care (01) ==
LOC: EDUNIT# 13:31 → ER 13:34
DX: N64.4 Mastodynia (principal); J43.9 Emphysema, unspecified; F17.210 Nicotine dependence, cigarettes, uncomplicated; Z99.81 Dependence on supplemental oxygen; Z88.6 Allergy status to analgesic agent
CPT/HCPCS: 99284

== ENCOUNTER 2022-08-01 08:00 | Outpatient (RCR) | payer MEDICARE, MEDICAID | END 2022-08-04 | disposition home or self-care (01) | PROVIDERS: ATTEND Pediatrics | DX: M19.90 Unspecified osteoarthritis, unspecified site (principal); R26.89 Other abnormalities of gait and mobility ==

== ENCOUNTER 2022-08-09 07:12 | Outpatient (CLI) | payer MEDICARE, MEDICAID ==
[~2022-08-09] VITALS: Ht 160 cm; Wt 62.2 kg
== END 2022-08-09 11:34 | disposition home or self-care (01) ==
LOC: PREOP 07:12
PROVIDERS: ATTEND Surgery
DX: Z01.818 Encounter for other preprocedural examination (principal)

== ENCOUNTER 2022-08-14 11:57 | Day surgery (SDC) | payer MEDICARE, MEDICAID ==
[~2022-08-14] VITALS: Ht 160 cm; Wt 62.2 kg
[~2022-08-14 11:57] MED LIST changes: -GENT5DRO30 OP; +GENT5DRO6 OP; +LACTATED RINGERS 1,000 ML IV STA
[2022-08-14] MEDS ORDERED: HURRICAINE EXT TUBE (BENZOCAINE) XX PRN (12:00)
[2022-08-14] MEDS ORDERED: LIDOCAINE JELLY 2% 6 ML SYRINGE MM PRN (12:00)
[2022-08-14 12:15] VITALS: BP 128/80
[2022-08-14] MEDS ORDERED: ONDANSETRON 4 MG/2 ML (SDV) Z0FRAN IV ONE (12:30)
[2022-08-14] MEDS ORDERED: fentaNYL INJ 100 MCG/2 ML AMP IV ONE (12:30)
--- NOTE | 2022-08-14 12:55 | Progress Note-Pre Operative ---
Pre-Operative Progress Note Date of Available H&P: August 14, 2022 Date H&P Reviewed: August 14, 2022 Time H&P Reviewed: 12:30 History & Physical: No changes noted Pre-Operative Diagnosis: dysphagia/GERD, change bowel habits PETAR NORMAN MD August 14, 2022 12:55
--- NOTE | 2022-08-14 12:58 | Discharge Inst-Surgical ---
D/C Lap Instructions-ESTER Follow Up Activity as tolerated High Fiber Diet 25g or more per day Avoid Alcohol, Caffeine, Spicy [place] and Acid foods. Drink 64 fluid oz or more of fluids per day. Symptoms to Report: Fever over 101 degree F, Nausea/Vomiting If any problems/questions: Contact your physician or go to Emergency Room PETAR NORMAN MD August 14, 2022 12:58
[2022-08-14] MEDS ORDERED: ONDANSETRON 4 MG (ZOFRAN) ORAL DISSOLVE TAB PO PRN (13:00)
[2022-08-14] MEDS ORDERED: ONDANSETRON 4 MG/2 ML (SDV) Z0FRAN IVP PRN (13:00)
[2022-08-14] MEDS ORDERED: fentaNYL INJ 100 MCG/2 ML AMP ONE ×2 (13:22→14:50)
[2022-08-14] MEDS ORDERED: PROPOFOL INJECTION 50 ML IV ONE ×2 (13:56→14:33)
[2022-08-14] MEDS ORDERED: MIDAZOLAM 2 MG/2 ML (VERSED) VIAL ONE (13:56)
[2022-08-14] MEDS ORDERED: LIDOCAINE JELLY 2% 6 ML SYRINGE ONE (14:00)
[2022-08-14 14:35] VITALS: BP 103/59
--- NOTE | 2022-08-14 14:38 | Anesthesia-General Post-Op ---
MAC Patient Condition Mental Status/LOC: Same as Preop Cardiovascular: Satisfactory Nausea/Vomiting: Absent Respiratory: Satisfactory Pain: Controlled Complications: Absent Post Op Complications Complications None Follow Up Care/Instructions Patient Instructions None needed. Anesthesiology Discharge Order Discharge Order Patient is doing well, no complaints, stable vital signs, no apparent adverse anesthesia problems. No complications reported per nursing. DOMINIC ADAME CRNA August 14, 2022 14:38
[2022-08-14 14:40] VITALS: BP 108/64
--- NOTE | 2022-08-14 14:51 | Progress Note-Post Operative ---
Post-Operative Progess Note Surgeon (s)/Regional Director Of Finance (s) Surgeon PETAR NORMAN MD Regional Director Of Finance: none Pre-Operative Diagnosis dysphagia/GERD, change bowel habits Post-Operative Diagnosis reflux esophagitis(grade B-C), mild dist esoph stricture, small recurrent HH(1.5cm), moderate gastritis. chronic stage 2 ext and int hemorrhoids. Procedure & Operative Findings Date of Procedure 08/14/22 Procedure Performed/Findings EGD with bx and balloon dilatation. colonoscopy. Anesthesia Type mac Estimated Blood Loss Estimated blood loss (mL): minimal Specimens/Packing Specimens Removed ge jxn, antrum PETAR NORMAN MD August 14, 2022 14:51
[2022-08-14] MEDS ORDERED: fentaNYL INJ 100 MCG/2 ML AMP IVP PRN (15:00)
[2022-08-14 15:15] VITALS: BP 108/64
--- NOTE | 2022-08-14 22:43 | OPERATIVE REPORT ---
DATE OF SERVICE: 08/14/2022 ATTENDING PRIMARY CARE PHYSICIAN: Dr. aT Coulter. PREOPERATIVE DIAGNOSES: Gastroesophageal reflux disease, dysphagia, history of peptic ulcer disease, screening colonoscopy with history of colon polyps. POSTOPERATIVE DIAGNOSES: Reflux esophagitis, [place] between grade B and C; mild distal esophageal stricture, small recurrent hiatal hernia approximately 1.5 cm in size, moderate gastritis. No duodenitis. Chronic stage II external and internal hemorrhoids. PROCEDURE: EGD with biopsy, balloon dilatation and colonoscopy. SURGEON: Petar Norman MD ANESTHESIA: Monitored anesthesia care. ESTIMATED BLOOD LOSS: Minimal. FINDINGS: Reflux esophagitis, [place] between grade B and C; mild distal esophageal stricture, small recurrent hiatal hernia approximately 1.5 cm in size, moderate gastritis. No duodenitis. Chronic stage II external and internal hemorrhoids. DISPOSITION: The patient tolerated the procedure well. INDICATIONS: The patient is a 67-year-old female known to us. She has had a number of different gastrointestinal issues including reflux and dysphagia. She had a longstanding history of heavy smoking; however, states that she did quit in 2020. She again reports that she has had some issues with dysphagia for specific types of foods, which was verified on barium swallow. There was also question of thickening of the duodenum, which may have indicated duodenitis. She is also in need of a screening colonoscopy. She has had some issues with constipation as of late. She also reports that she has had polyps, with the last one. Last colonoscopy done in 2014 where a tubular adenoma was identified. She does not report any family history of colon cancer. DESCRIPTION OF PROCEDURE: The patient was brought to the endoscopy suite and laid in the left lateral decubitus position. After adequate IV pain and sedative medications and monitored anesthesia care, the mouthpiece was applied. The endoscope was placed in the mouth, visualizing the pharynx and hypopharyngeal region. Vocal cords, epiglottis and vallecula identified and appeared to be normal. The endoscope was then gently intubated into the esophageal opening and esophagus insufflated. The endoscope was then advanced through the first, second and third portions of esophagus; at the level of the GE junction, a reflux esophagitis between [place] grade B and C identified with a mild distal esophageal stricture. A biopsy was taken with forceps with visualization of good hemostasis. The endoscope was then advanced into the stomach and endoscope retroflexed visualizing a small recurrent hiatal hernia approximately 1.5 cm in size. There was an intact previous antireflux procedure. There was moderate gastritis more towards the stomach antrum, no formal ulcerations. A biopsy was taken of the antrum to rule out H. pylori with visualization of good hemostasis. The endoscope was then advanced through the pylorus and the first and second portions of the duodenum with no ulcerations or any duodenitis identified. The balloon was then placed into the stomach and pulled back to the area of the stricture. We then proceeded with a graded dilatation from 2, 4, then eventually 6 atmospheres of pressure or 20 mm in luminal diameter with moderate resistance and left this in place for approximately 60 seconds. The balloon was then desufflated and removed with visualization of good hemostasis as well as no mucosal tears. The endoscope was then slowly withdrawn while taking a second look and suctioning of residual air with no additional findings. A digital rectal examination was performed which revealed chronic stage II external and internal hemorrhoids, not actively edematous nor inflamed and no bleeding. Normal sphincter tone was felt and there were no palpable masses. The endoscope was then intubated into the anus, rectum gently insufflated. The endoscope was then advanced through the valves of Hernandez of the rectum with no polyps or any neoplasms identified. We then proceeded through the sigmoid colon where very mild or early sigmoid diverticulosis identified. The endoscope was then advanced through the remainder of the descending, transverse and ascending colon to the cecum, which were normal. There were no polyps or any neoplasms identified throughout the colon or rectum. The endoscope was then slowly withdrawn while taking a second look and suctioning of residual air with no additional findings. The patient tolerated the procedure well. We will recommend the necessary lifestyle and dietary accommodation including small and more frequent meals, avoidance of eating at night as well as head elevation while lying supine. 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 If she does have recurrent dysphagia, we will have her follow up for a repeat dilatation. We will also recommend a high-fiber diet with at least 25 grams of fiber daily to promote soft consistency stools on a daily basis. If she is asymptomatic, she does not need another colonoscopy for another 10 years. Job ID: [id number] DocumentID: [id number] Dictated Date: 08/14/2022 14:44:02 Grounds Crew Supervisor Date: 08/14/2022 22:41:00 Dictated By: PETAR NORMAN MD
== END 2022-08-14 15:20 | disposition home or self-care (01) ==
LOC: ENDO 11:57
PROVIDERS: ATTEND Surgery
DX: K21.00 Gastro-esophageal reflux disease with esophagitis, without bleeding (principal); K44.9 Diaphragmatic hernia without obstruction or gangrene; K22.2 Esophageal obstruction; K64.1 Second degree hemorrhoids; K64.4 Residual hemorrhoidal skin tags; K29.60 Other gastritis without bleeding; K57.30 Diverticulosis of large intestine without perforation or abscess without bleeding; K59.00 Constipation, unspecified; J44.9 Chronic obstructive pulmonary disease, unspecified; Z99.81 Dependence on supplemental oxygen; Z87.891 Personal history of nicotine dependence; Z86.010 Personal history of colon polyps
CPT/HCPCS: 88305

== ENCOUNTER 2022-08-17 11:10 | Emergency (ER) | payer MEDICARE, MEDICAID ==
[~2022-08-17] VITALS: Ht 162 cm; Wt 61.0 kg
[~2022-08-17 11:10] MED LIST changes: -LACTATED RINGERS 1,000 ML IV STA
--- NOTE | 2022-08-17 11:52 | ED EENT ---
History of Present Illness General Chief Complaint: Eye Problems Stated Complaint: POST OP TRUMAN EYE PAIN Nursing Triage Note: PT AMB TO TRIAGE WITH C/O BILAT EYE PAIN AFTER HAVING EYE SURGERY AT [facility] YESTERDAY AND NOT GIVEN ANY PAIN MEDS. PT WAS TOLD BY EYE TO SEE HER PRIMARY BUT PT STATES THEY TOLD HER THEY CANT PRESCRIBE HER PAIN MEDS History of Present Illness Date Seen by Provider: August 17, 2022 Time Seen by Provider: 11:46 Initial Comments Patient is a 67-year-old female who presents to the emergency department with a chief complaint of bilateral eye pain, swelling. She [facility] without any pain medication. She states she was advised to call her primary care provider for pain management. She states she called Dr. Long last evening with Dr. Long would not prescribe her pain medication because "she was not in enough pain". Patient is also complaining of worsening low back pain. She tells me she has a history of chronic pain. She has not taken anything since the surgery. She states the pain is "severe". No fevers or chills. No decreased visual acuity. Patient is noted to have postsurgical findings to the bilateral eyes with lid erythema, swelling and sutures present in the upper lids. When asked the patient if she had a blepharoplasty she said she thought so. Review of the medical record shows that the patient has been in the emergency department multiple times for pain medications. There is a note by Dr. MCWILLIAMS from approximately a year ago where the patient stated that she could take Toradol in spite of her allergy to ibuprofen and naproxen and that it worked well for her. Timing/Duration: gradual Location: eye (R), eye (L) Prearrival Treatment: no prearrival treatment Associated Symptoms: other (low back pain) Allergies and Home Medications Allergies Coded Allergies: bacitracin (Verified Allergy, Intermediate, "I BREAK OUT IN A RASH ALL OVER.", 04/02/22) neomycin (Verified Allergy, Intermediate, "I BREAK OUT IN A RASH ALL OVER.", 04/02/22) polymyxin B (Verified Allergy, Intermediate, "I BREAK OUT IN A RASH ALL OVER.", 04/02/22) ibuprofen (Verified Allergy, Mild, RASH, 04/02/22) naproxen (Verified Allergy, Mild, RASH, 04/02/22) strawberry (Verified Allergy, Mild, 04/02/22) sulfamethoxazole (Verified Allergy, Unknown, 04/02/22) tramadol (Verified Allergy, Unknown, Has rec lortab & oxycodone in the past, 06/21/22) trimethoprim (Verified Allergy, Unknown, 04/02/22) Patient Home Medication List Home Medication List Reviewed: Yes Albuterol Sulfate (Proventil Hfa) 90 Mcg Hfa.aer.ad, 2 PUFF INH Q6H PRN for WHEEZING, (Reported) Entered as Reported by: MICHAEL GARZA on 03/19/22 0857 Alosetron HCl (Alosetron HCl) 0.5 Mg Tablet, 0.5 MG PO BID, (Reported) Entered as Reported by: MICHAEL GARZA on 03/19/22 0857 Apixaban (Eliquis) 5 Mg Tablet, 5 MG PO BID, (Reported) Entered as Reported by: GRETA MANCILLA on 07/11/17 1530 Benzonatate (Tessalon Perles) 100 Mg Capsule, 200 MG PO Q8H PRN for cough Prescribed by: GINA GUTIERREZ on 02/10/22 1611 Buspirone HCl (Buspirone HCl) 15 Mg Tablet, 15 MG PO TID, (Reported) Entered as Reported by: SERENITY COPELAND on 11/08/21 1216 Clonazepam (Clonazepam) 1 Mg Tablet, 1 MG PO BID, (Reported) Entered as Reported by: JAMIE GOVEA on 04/20/19 1024 Cyclobenzaprine HCl (Cyclobenzaprine HCl) 10 Mg Tablet, 10 MG PO TID PRN for SPASMS, (Reported) Entered as Reported by: MICHAEL GARZA on 03/19/22 0857 Dapagliflozin Propanediol (Farxiga) 5 Mg Tablet, 5 MG PO DAILY, (Reported) Entered as Reported by: GRETA MANCILLA on 05/21/18 1455 Diltiazem HCl (Diltiazem HCl) 90 Mg Tablet, 90 MG PO TID, (Reported) Entered as Reported by: SERENITY COPELAND on 11/08/21 1132 Eluxadoline (Viberzi) 75 Mg Tablet, 75 MG PO BID, (Reported) Entered as Reported by: MICHAEL GARZA on 03/19/22 08 Epinephrine (Epipen) 0.3 Mg/0.3 Ml Auto.injct, 0.3 MG IJ PRN, (Reported) Entered as Reported by: MICHAEL GARZA on 03/19/22 08 Erenumab-Aooe (Aimovig Autoinjector) 70 Mg/1 Ml Auto.injct, 70 MG MONTHLY, (Repo rted) Entered as Reported by: SERENITY COPELAND on 12/30/19 1728 Ertapenem Sodium (Ertapenem) 1 Gram Vial, 1 GM IM DAILY Prescribed by: BAYLEE WHITE on 04/03/22 1029 Fludrocortisone Acetate (Fludrocortisone Acetate) 0.1 Mg Tab, 0.1 MG PO EVERY OTHER DAY, (Reported) Entered as Reported by: SERENITY COPELAND on 11/08/21 1132 Fluticasone Furoate (Flonase Sensimist) 27.5 Mcg/Actuation Purmela.susp, 2 SPRAYS NSEACH DAILY, (Reported) Entered as Reported by: MICHAEL GARZA on 03/19/22 08 Gabapentin (Neurontin) 300 Mg Capsule, 900 MG PO TID, (Reported) Entered as Reported by: RADHA KATHLEEN on 04/03/22 1101 Hydrocodone/Acetaminophen (Hydrocodone-Acetamin 5-325 mg) 5 Mg-325 Mg Tablet, 1 TAB PO Q4H PRN for PAIN-MODERATE (5-7) Prescribed by: Angela Mcgovern on 07/31/22 1529 Ipratropium/Albuterol Sulfate (Iprat-Albut 0.5-3(2.5) mg/3 ml) 0.5 Mg-3 Mg (2.5 Mg Base)/3 Ml Ampul.neb, 3 ML IH Q6H PRN for SHORTNESS OF BREATH, (Reported) Entered as Reported by: MICHAEL GARZA on 03/19/22 0857 Lamotrigine (Lamotrigine) 25 Mg Tablet, 25 MG PO BID, (Reported) Entered as Reported by: SEERNITY COPELAND on 11/08/21 1132 Latanoprost (Xalatan) 0.005 % Drops, 1 DROP OU HS, (Reported) Entered as Reported by: SERENITY COPELAND on 11/08/21 1132 Levocetirizine Dihydrochloride (Levocetirizine Dihydrochloride) 5 Mg Tablet, 5 MG PO DAILY, (Reported) Entered as Reported by: URSZULA BELL on 05/14/18 0828 Lidocaine (Lidocaine) 4 % Adh..patch, 1 EACH TP DAILY, (Reported) Entered as Reported by: MICHAEL GARZA on 03/19/22 0857 Lipase/Protease/Amylase (Zenpep Dr 40,000 Units Capsule) 40-126-168 Capsule.dr, 2 EACH PO TID, (Reported) Entered as Reported by: MICHAEL GARZA on 03/19/22 0857 Meclizine HCl (Meclizine HCl) 25 Mg Tablet, 25 MG PO Q8H PRN for DIZZINESS, (Reported) Entered as Reported by: JESSICA GILMORE on 02/28/21 1353 Memantine HCl (Memantine HCl) 10 Mg Tablet, 10 MG PO DAILY, (Reported) Entered as Reported by: BIENVENIDO FARRELL on 07/28/15 1444 Montelukast Sodium (Montelukast Sodium) 10 Mg Tablet, 10 MG PO HS, (Reported) Entered as Reported by: SERENITY COPELAND on 11/08/21 1216 Naloxone HCl (Narcan) 4 Mg/Actuation Purmela, 4 MG NS PRN, (Reported) Entered as Reported by: MICHAEL GARZA on 03/19/22 0857 Nicotine (Nicotrol) 10 Mg Cartridge, INHALER NS UD PRN for SMOKING CESSATION, (Reported) Entered as Reported by: SERENITY COPELAND on 11/08/21 1132 Nitroglycerin (Nitroglycerin) 0.4 Mg Tab.subl, 0.4 MG SL UD PRN for CHEST PAIN (ANGINA), (Reported) Entered as Reported by: SERENITY COPELAND on 11/08/21 1132 Oxycodone HCl (Roxicodone) 15 Mg Tablet, 15 MG PO Q6H PRN for PAIN-SEVERE (8-10) Prescribed by: BAYLEE WHITE on 06/21/22 1200 Pantoprazole Sodium (Pantoprazole Sodium) 40 Mg Tablet.dr, 40 MG PO DAILY, (Reported) Entered as Reported by: MICHAEL GARZA on 03/19/22 0857 Primidone (Mysoline) 250 Mg Tablet, 250 MG PO BID, (Reported) Entered as Reported by: MICHAEL GARZA on 03/19/22 0857 Ropinirole HCl (Ropinirole HCl) 2 Mg Tablet, 4 MG PO HS, (Reported) Entered as Reported by: SERENITY COPELAND on 12/30/19 1728 Rosuvastatin Calcium (Rosuvastatin Calcium) 20 Mg Tablet, 20 MG PO DAILY, (Reported) Entered as Reported by: SERENITY COPELAND on 11/08/21 1132 Suvorexant (Belsomra) 10 Mg Tablet, 10 MG PO HS, (Reported) Entered as Reported by: MICHAEL GARZA on 03/19/22 0857 Tiotropium Br/Olodaterol HCl (Stiolto Respimat Inhal Purmela) 2.5 Mcg-2.5 Mcg/Actuation Mist.inhal, 4 GM IH DAILY, (Reported) Entered as Reported by: RADHA KATHLEEN on 04/03/22 1106 Trazodone HCl (Trazodone HCl) 100 Mg Tablet, 100 MG PO HS, (Reported) Entered as Reported by: MICHAEL GARZA on 03/19/22 0857 Review of Systems Review of Systems Constitutional: see HPI Eyes: Inflammation, Pain Ears: No Symptoms Reported Nose: no symptoms reported Mouth: no symptoms reported Throat: no symptoms reported Respiratory: no symptoms reported Gastrointestinal: no symptoms reported Musculoskeletal: back pain Skin: no symptoms reported Neurological: No Symptoms Reported All Other Systems Reviewed Negative Unless Noted: Yes Past Eoyxvla-Ubxuol-Qfruia Hx Patient Social History Tobacco Use?: Yes Tobacco type used: Cigarettes Substance use?: No Alcohol Use?: No Pt feels they are or have been: No Immunizations Up To Date Tetanus Booster (TDap): Unknown PED Vaccines UTD: No First/Initial COVID19 Vaccinat: 2021 Second COVID19 Vaccination Hugo: 2021 Third COVID19 Vaccination Date: 2021 Seasonal Allergies Seasonal Allergies: Yes Past Medical History Surgery/Hospitalization HX: PMH;HF, COPD, AND STROKE HX., PALPATATIONS SURGERY; urostomy, TUBAL, AND EXPLORATORY, HEART CATH(03/28), BILATERAL HIP AND KNEE REPLACEMENTS, FOUR NECK SURGERIES Surgeries: Yes (NECK, HIATAL HERNIA, CARDIAC ABLATION, BILAT ELBOW, BILAT CTR, BLADDER SLIN) Cystectomy, Gallbladder, Orthopedic, Pancreatic Respiratory: Yes (HOME 02) COPD, Emphysema Currently Using CPAP: No Currently Using BIPAP: No Cardiac: Yes (CARDIAC ABLATION 2015) High Cholesterol, Irregular Heartbeat, Palpitations Neurological: Yes (PARESTHESIAS OF BILAT LOWER EXT DUE TO FORAMINAL STENOSIS) Seizure Disorder, TIA 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 Disorders: No 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 Sexually Transmitted Disease: No HIV/AIDS: No Genitourinary: Yes UTI-Chronic Gastrointestinal: Yes (FREQ DIARRHEA, DYSPHAGIA) Gastroesophageal Reflux, Chronic Diarrhea Musculoskeletal: Yes (CERVICAL SUGERY) Arthritis, Back Injury Endocrine: Yes (DIET CONTROLLED NIDDM--NO LONGER ON MEDICATIONS; THYROID NODULES) Diabetes, Non-Insulin dep HEENT: Yes (LEFT EAR HEARING IMPAIRMENT) Cataract Loss of Vision: Denies Hearing Impairment: Hard of Hearing Cancer: Yes Bladder Did You Recieve Any Treatments: Yes What Type of Treatment Did You: Surgical Intervention Psychosocial: No Anxiety, Depression Integumentary: No Psoriasis Blood Disorders: No Adverse Reaction/Blood Tranf: No Family Medical History Cardiovascular disease G8 BROTHER (TRIPLE BYPASS) Diabetes mellitus 19 MOTHER FH: COPD (chronic obstructive pulmonary disease) 19 MOTHER FH: breast cancer 19 MOTHER FHx: brain cancer 19 FATHER No Pertinent Family Hx Physical Exam Vital Signs Vital Signs - First Documented 08/17/22 11:19 Temp 36.8 Pulse 67 Resp 18 B/P (MAP) 145/77 (99) Pulse Ox 97 O2 Delivery Room Air Height, Weight, BMI Height: 5'4.00" Weight: 165lbs. 0.0oz. 72.150782ko; 23.00 BMI Method:Stated General Appearance: no apparent distress, thin Eyes: bilateral eye lid inflammation, bilateral eye lid injury (sutures to u pper lids bilaterally with erythema and swelling) Cardiovascular: regular rate, rhythm Respiratory: lungs clear, normal breath sounds, no respiratory distress, no accessory muscle use Neurologic/Psychiatric: no motor/sensory deficits, alert, normal mood/affect, oriented x 3 Skin: normal color, warm/dry Progress/Results/Core Measures Results/Orders My Orders Orders - GINA GUTIERREZ MD Ketorolac Injection (Toradol Injection) (08/17/22 12:15) Medications Given in ED Current Medications Medications Dose Ordered Sig/Brenton Route Start Time Stop Time Status Last Admin Dose Admin Ketorolac Tromethamine 30 mg ONCE ONCE IM 08/17/22 12:15 08/17/22 12:16 DC 08/17/22 12:06 30 MG Vital Signs/I&O 08/17/22 11:19 Temp 36.8 Pulse 67 Resp 18 B/P (MAP) 145/77 (99) Pulse Ox 97 O2 Delivery Room Air Blood Pressure Mean: 99 Departure Impression Primary Impression: Post-op pain Additional Impression: Low back pain Qualified Codes: M54.50 - Low back pain, unspecified; G89.29 - Other chronic pain Disposition: HOME, SELF-CARE Condition: Stable Departure-Patient Inst. Decision time for Depature: 12:20 Referrals: SERENITY LONG DO (PCP/Family) Primary Care Physician Patient Instructions: Postoperative Pain (DC) Add. Discharge Instructions: Use the ice packs to your eyes as indicated in your discharge instructions from your eye surgeon. Please be sure and keep that follow-up appointment. I have written you a prescription for a small amount of hydrocodone. This will get you through until Friday when you can contact Dr Long's office again, as the ER cannot provide pain medications for chronic pain. Take 1 hydrocodone with 1 extra strength Tylenol every 6 hours as needed for severe pain, otherwise try and use the ice packs for pain relief. If you develop a fever, drainage from the surgical sites or any other emergent, concerning symptoms please return to the emergency department for reevaluation. Scripts Hydrocodone/Acetaminophen (Hydrocodone-Acetamin 5-325 mg) 5 Mg-325 Mg Tablet 1 TAB PO Q6H PRN for PAIN-MODERATE (5-7), #6 TAB Prov: GINA GUTIERREZ MD 08/17/22 GINA GUTIERREZ MD August 17, 2022 11:52
[2022-08-17] MEDS ORDERED: KETOROLAC 30 MG/ML VIAL IM ONE (12:15)
[2022-08-17] MEDS ORDERED: ACHD5005 PO (12:21)
[2022-08-17 12:35] VITALS: BP 132/69
== END 2022-08-17 12:44 | disposition home or self-care (01) ==
LOC: EDUNIT# 11:10 → ER 11:12
DX: H57.13 Ocular pain, bilateral (principal); G89.18 Other acute postprocedural pain; M54.50 Low back pain, unspecified; G89.29 Other chronic pain; J43.9 Emphysema, unspecified; F17.210 Nicotine dependence, cigarettes, uncomplicated; Z88.6 Allergy status to analgesic agent; Z99.81 Dependence on supplemental oxygen
CPT/HCPCS: 99284

== ENCOUNTER 2022-08-29 09:32 | Outpatient (RCR) | payer MEDICARE, MEDICAID | END 2022-09-04 | disposition home or self-care (01) | PROVIDERS: ATTEND Pediatrics | DX: M19.90 Unspecified osteoarthritis, unspecified site (principal); R26.89 Other abnormalities of gait and mobility ==

== ENCOUNTER → 2022-09-04 | Outpatient (RCR) | payer MEDICARE, MEDICAID | END | disposition home or self-care (01) | PROVIDERS: ATTEND Plastic Surgery | DX: M79.642 Pain in left hand (principal); R53.1 Weakness; Z98.1 Arthrodesis status ==

== ENCOUNTER 2022-09-08 11:31 | Emergency (ER) | payer MEDICARE, MEDICAID ==
--- NOTE | 2022-09-08 12:39 | ED Back Pain ---
General Chief Complaint: Back Problems Stated Complaint: BACK PAIN Nursing Triage Note: PT AMB TO [facility] 4 WITH FRIEND WITH C/O BACK PAIN FOR TWO WEEKS. PT DENIES TAKING ANY MEDICATION AT HOME BUT WAS SEEN AT [facility] FOR A TORADOL SHOT LAST WEEK Source of Information: Patient Exam Limitations: No Limitations History of Present Illness Date Seen by Provider: Sep 08, 2022 Time Seen by Provider: 12:25 Initial Comments 67-year-old female presents to the ER with complaints of chronic lower back pain which has become worse over the last week. She states the pain is the same, just worse than normal. She is going to see a cash specialist in [place] in 2 weeks, and she is supposed to have an MRI for her back tomorrow. She denies any fevers. She denies any saddle paresthesia, and urinary or bowel incontinence. Allergies and Home Medications Allergies Coded Allergies: bacitracin (Verified Allergy, Intermediate, "I BREAK OUT IN A RASH ALL OVER.", 04/02/22) neomycin (Verified Allergy, Intermediate, "I BREAK OUT IN A RASH ALL OVER.", 04/02/22) polymyxin B (Verified Allergy, Intermediate, "I BREAK OUT IN A RASH ALL OVER.", 04/02/22) ibuprofen (Verified Allergy, Mild, RASH, 04/02/22) naproxen (Verified Allergy, Mild, RASH, 04/02/22) strawberry (Verified Allergy, Mild, 04/02/22) sulfamethoxazole (Verified Allergy, Unknown, 04/02/22) tramadol (Verified Allergy, Unknown, Has rec lortab & oxycodone in the past, 06/21/22) trimethoprim (Verified Allergy, Unknown, 04/02/22) Patient Home Medication List Home Medication List Reviewed: Yes Albuterol Sulfate (Proventil Hfa) 90 Mcg Hfa.aer.ad, 2 PUFF INH Q6H PRN for WHEEZING, (Reported) Entered as Reported by: MICHAEL GARZA on 03/19/22 0857 Alosetron HCl (Alosetron HCl) 0.5 Mg Tablet, 0.5 MG PO BID, (Reported) Entered as Reported by: MICHAEL GARZA on 03/19/22 0857 Apixaban (Eliquis) 5 Mg Tablet, 5 MG PO BID, (Reported) Entered as Reported by: GRETA MANCILLA on 07/11/17 1530 Benzonatate (Tessalon Perles) 100 Mg Capsule, 200 MG PO Q8H PRN for cough Prescribed by: GINA GUTIERREZ on 02/10/22 1611 Buspirone HCl (Buspirone HCl) 15 Mg Tablet, 15 MG PO TID, (Reported) Entered as Reported by: SERENITY COPELAND on 11/08/21 1216 Clonazepam (Clonazepam) 1 Mg Tablet, 1 MG PO BID, (Reported) Entered as Reported by: JAMIE GOVEA on 04/20/19 1024 Cyclobenzaprine HCl (Cyclobenzaprine HCl) 10 Mg Tablet, 10 MG PO TID PRN for SPASMS, (Reported) Entered as Reported by: MICHAEL GARZA on 03/19/22 0857 Dapagliflozin Propanediol (Farxiga) 5 Mg Tablet, 5 MG PO DAILY, (Reported) Entered as Reported by: GRETA MANCILLA on 05/21/18 1455 Diltiazem HCl (Diltiazem HCl) 90 Mg Tablet, 90 MG PO TID, (Reported) Entered as Reported by: SERENITY COPELAND on 11/08/21 1132 Eluxadoline (Viberzi) 75 Mg Tablet, 75 MG PO BID, (Reported) Entered as Reported by: MICHAEL GARZA on 03/19/22 0857 Epinephrine (Epipen) 0.3 Mg/0.3 Ml Auto.injct, 0.3 MG IJ PRN, (Reported) Entered as Reported by: MICHAEL GARZA on 03/19/22 0857 Erenumab-Aooe (Aimovig Autoinjector) 70 Mg/1 Ml Auto.injct, 70 MG MONTHLY, (Reported) Entered as Reported by: SERENITY COPELAND on 12/30/19 1728 Ertapenem Sodium (Ertapenem) 1 Gram Vial, 1 GM IM DAILY Prescribed by: BAYLEE WHITE on 04/03/22 1029 Fludrocortisone Acetate (Fludrocortisone Acetate) 0.1 Mg Tab, 0.1 MG PO EVERY OTHER DAY, (Reported) Entered as Reported by: SERENITY COPELAND on 11/08/21 1132 Fluticasone Furoate (Flonase Sensimist) 27.5 Mcg/Actuation Morse.susp, 2 SPRAYS NSEACH DAILY, (Reported) Entered as Reported by: MICHAEL GARZA on 03/19/22 0857 Gabapentin (Neurontin) 300 Mg Capsule, 900 MG PO TID, (Reported) Entered as Reported by: RADHA KATHLEEN on 04/03/22 1101 Hydrocodone/Acetaminophen (Hydrocodone-Acetamin 5-325 mg) 5 Mg-325 Mg Tablet, 1 TAB PO Q4H PRN for PAIN-MODERATE (5-7) Prescribed by: Angela Frances on 07/31/22 1529 Hydrocodone/Acetaminophen (Hydrocodone-Acetamin 5-325 mg) 5 Mg-325 Mg Tablet, 1 TAB PO Q6H PRN for PAIN-MODERATE (5-7) Prescribed by: GINA GUTIERREZ on 08/17/22 1222 Ipratropium/Albuterol Sulfate (Iprat-Albut 0.5-3(2.5) mg/3 ml) 0.5 Mg-3 Mg (2.5 Mg Base)/3 Ml Ampul.neb, 3 ML IH Q6H PRN for SHORTNESS OF BREATH, (Reported) Entered as Reported by: MICHAEL GARZA on 03/19/22 0857 Lamotrigine (Lamotrigine) 25 Mg Tablet, 25 MG PO BID, (Reported) Entered as Reported by: SERENITY COPELAND on 11/08/21 1132 Latanoprost (Xalatan) 0.005 % Drops, 1 DROP OU HS, (Reported) Entered as Reported by: SERENITY COPELAND on 11/08/21 1132 Levocetirizine Dihydrochloride (Levocetirizine Dihydrochloride) 5 Mg Tablet, 5 MG PO DAILY, (Reported) Entered as Reported by: URSZULA BELL on 05/14/18 0828 Lidocaine (Lidocaine) 4 % Adh..patch, 1 EACH TP DAILY, (Reported) Entered as Reported by: MICHAEL GARZA on 03/19/22 0857 Lipase/Protease/Amylase (Zenpep Dr 40,000 Units Capsule) 40-126-168 Capsule.dr, 2 EACH PO TID, (Reported) Entered as Reported by: MICHAEL GARZA on 03/19/22 0857 Meclizine HCl (Meclizine HCl) 25 Mg Tablet, 25 MG PO Q8H PRN for DIZZINESS, (Reported) Entered as Reported by: JESSICA GILMORE on 02/28/21 1353 Memantine HCl (Memantine HCl) 10 Mg Tablet, 10 MG PO DAILY, (Reported) Entered as Reported by: BIENVENIDO FARRELL on 07/28/15 1444 Montelukast Sodium (Montelukast Sodium) 10 Mg Tablet, 10 MG PO HS, (Reported) Entered as Reported by: SERENITY COPELAND on 11/08/21 1216 Naloxone HCl (Narcan) 4 Mg/Actuation Morse, 4 MG NS PRN, (Reported) Entered as Reported by: MICHAEL GARZA on 03/19/22 0857 Nicotine (Nicotrol) 10 Mg Cartridge, INHALER NS UD PRN for SMOKING CESSATION, (Reported) Entered as Reported by: SERENITY COPELAND on 11/08/21 113 Nitroglycerin (Nitroglycerin) 0.4 Mg Tab.subl, 0.4 MG SL UD PRN for CHEST PAIN (ANGINA), (Reported) Entered as Reported by: SERENITY COPELAND on 11/08/21 113 Oxycodone HCl (Roxicodone) 15 Mg Tablet, 15 MG PO Q6H PRN for PAIN-SEVERE (8-10) Prescribed by: BAYLEE WHITE on 06/21/22 1200 Pantoprazole Sodium (Pantoprazole Sodium) 40 Mg Tablet.dr, 40 MG PO DAILY, (Reported) Entered as Reported by: MICHAEL GARZA on 03/19/22 08 Primidone (Mysoline) 250 Mg Tablet, 250 MG PO BID, (Reported) Entered as Reported by: MICHAEL GARZA on 03/19/22 0857 Ropinirole HCl (Ropinirole HCl) 2 Mg Tablet, 4 MG PO HS, (Reported) Entered as Reported by: SERENITY COPELAND on 12/30/19 1728 Rosuvastatin Calcium (Rosuvastatin Calcium) 20 Mg Tablet, 20 MG PO DAILY, (Reported) Entered as Reported by: SERENITY COPELAND on 11/08/21 113 Suvorexant (Belsomra) 10 Mg Tablet, 10 MG PO HS, (Reported) Entered as Reported by: MICHAEL GARZA on 03/19/22 0857 Tiotropium Br/Olodaterol HCl (Stiolto Respimat Inhal Morse) 2.5 Mcg-2.5 Mcg/Actuation Mist.inhal, 4 GM IH DAILY, (Reported) Entered as Reported by: RADHA KATHLEEN on 04/03/22 1106 Trazodone HCl (Trazodone HCl) 100 Mg Tablet, 100 MG PO HS, (Reported) Entered as Reported by: MICHAEL GARZA on 03/19/22 0857 Review of Systems Constitutional: no symptoms reported Musculoskeletal: back pain Past Xvcqosv-Axuank-Ivjbur Hx Patient Social History Tobacco Use?: Yes Tobacco type used: Cigarettes Substance use?: No Alcohol Use?: No Pt feels they are or have been: No Immunizations Up To Date Tetanus Booster (TDap): Unknown PED Vaccines UTD: No First/Initial COVID19 Vaccinat: 2021 Second COVID19 Vaccination Hugo: 2021 Third COVID19 Vaccination Date: 2021 Seasonal Allergies Seasonal Allergies: Yes Past Medical History Surgery/Hospitalization HX: PMH;HF, COPD, AND STROKE HX., PALPATATIONS SURGERY; urostomy, TUBAL, AND EXPLORATORY, HEART CATH(03/28), BILATERAL HIP AND KNEE REPLACEMENTS, FOUR NECK SURGERIES Surgeries: Yes (NECK, HIATAL HERNIA, CARDIAC ABLATION, BILAT ELBOW, BILAT CTR, BLADDER SLIN) Cystectomy, Gallbladder, Orthopedic, Pancreatic Respiratory: Yes (HOME ) COPD, Emphysema Currently Using CPAP: No Currently Using BIPAP: No Cardiac: Yes (CARDIAC ABLATION 2015) High Cholesterol, Irregular Heartbeat, Palpitations Neurological: Yes (PARESTHESIAS OF BILAT LOWER EXT DUE TO FORAMINAL STENOSIS) Seizure Disorder, TIA 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 Disorders: No 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 Sexually Transmitted Disease: No HIV/AIDS: No Genitourinary: Yes UTI-Chronic Gastrointestinal: Yes (FREQ DIARRHEA, DYSPHAGIA) Gastroesophageal Reflux, Chronic Diarrhea Musculoskeletal: Yes (CERVICAL SUGERY) Arthritis, Back Injury Endocrine: Yes (DIET CONTROLLED NIDDM--NO LONGER ON MEDICATIONS; THYROID NODULES) Diabetes, Non-Insulin dep HEENT: Yes (LEFT EAR HEARING IMPAIRMENT) Cataract Loss of Vision: Denies Hearing Impairment: Hard of Hearing Cancer: Yes Bladder Did You Recieve Any Treatments: Yes What Type of Treatment Did You: Surgical Intervention Psychosocial: No Anxiety, Depression Integumentary: No Psoriasis Blood Disorders: No Adverse Reaction/Blood Tranf: No Family Medical History Cardiovascular disease G8 BROTHER (TRIPLE BYPASS) Diabetes mellitus 19 MOTHER FH: COPD (chronic obstructive pulmonary disease) 19 MOTHER FH: breast cancer 19 MOTHER FHx: brain cancer 19 FATHER No Pertinent Family Hx Physical Exam Vital Signs Vital Signs - First Documented 09/08/22 12:06 Temp 36.2 Pulse 90 Resp 20 B/P (MAP) 124/66 (85) Pulse Ox 93 O2 Delivery Room Air Capillary Refill : Height, Weight, BMI Height: 5'4.00" Weight: 165lbs. 0.0oz. 72.669001od; 23.00 BMI Method:Stated General Appearance: No Apparent Distress, WD/WN Neck: Non Tender, Supple Cardiovascular: Regular Rate, Rhythm Respiratory: Lungs Clear, Normal Breath Sounds, No Accessory Muscle Use, No Respiratory Distress Back: Vertebral Tenderness, Other (Muscle tenderness) Neurologic/Psychiatric: Alert, Normal Mood/Affect Skin: Normal Color, Warm/Dry Progress/Results/Core Measures Results/Orders My Orders Orders - ANGELA FRANCES APRN Hydrocodone/Apap 10/325 Tablet (Lortab 1 (09/08/22 12:45) Medications Given in ED Current Medications Medications Dose Ordered Sig/Brenton Route Start Time Stop Time Status Last Admin Dose Admin Acetaminophen/ Hydrocodone Bitart 1 ea ONCE ONCE PO 09/08/22 12:45 09/08/22 12:46 DC 09/08/22 12:54 1 EA Vital Signs/I&O 09/08/22 12:06 Temp 36.2 Pulse 90 Resp 20 B/P (MAP) 124/66 (85) Pulse Ox 93 O2 Delivery Room Air Blood Pressure Mean: 85 Progress Progress Note : Progress Note Patient seen and evaluated, resting comfortably in bed, no acute distress. I will order a [place] here now and discharged with prescription for [place]. Discharge instructions and return precautions provided. Departure Impression Primary Impression: Chronic back pain Disposition: 01 HOME, SELF-CARE Condition: Stable Departure-Patient Inst. Decision time for Depature: 12:52 Referrals: FAHAD TYLER MD (PCP) Primary Care Physician Patient Instructions: Low back pain in adults Add. Discharge Instructions: Follow-up with the cash specialist in 2 weeks as scheduled. Take [place] as needed for pain, it can cause drowsiness as well as constipation. Return for severe pain, numbness or tingling in your inner thighs or groin area, urinary or bowel incontinence, inability to walk, or any other new, concerning, or worsening symptoms. All discharge instructions reviewed with patient and/or family. Voiced understanding. Scripts Hydrocodone/Acetaminophen (Hydrocodone-Acetamin 5-325 mg) 5 Mg-325 Mg Tablet 1 TAB PO Q4H PRN for PAIN-MODERATE (5-7), #20 TAB 0 Refills Prov: ANGELA FRANCES APRN 09/08/22 ANGELA FRANCES APRN Sep 08, 2022 12:39
[2022-09-08 13:03] VITALS: BP 126/67
[2022-09-08] MEDS ORDERED: ACHD5005 PO (13:05)
== END 2022-09-08 13:04 | disposition home or self-care (01) ==
LOC: EDUNIT# 11:31 → ER 11:33
DX: M54.50 Low back pain, unspecified (principal); G89.29 Other chronic pain; J44.9 Chronic obstructive pulmonary disease, unspecified; F17.210 Nicotine dependence, cigarettes, uncomplicated; Z88.5 Allergy status to narcotic agent; Z99.81 Dependence on supplemental oxygen
CPT/HCPCS: 99283

== ENCOUNTER 2022-09-17 09:25 | Outpatient (RCR) | payer MEDICARE, MEDICAID | END 2022-10-04 | disposition home or self-care (01) | PROVIDERS: ATTEND Pediatrics | DX: M19.90 Unspecified osteoarthritis, unspecified site (principal); R26.89 Other abnormalities of gait and mobility ==

== ENCOUNTER 2022-09-17 09:25 | Outpatient (RCR) | payer MEDICARE, MEDICAID | END 2022-10-01 14:30 | disposition home or self-care (01) | PROVIDERS: ATTEND Plastic Surgery | DX: Z98.1 Arthrodesis status (principal) ==

== ENCOUNTER 2022-09-23 23:38 | Emergency (ER) | payer MEDICARE, MEDICAID ==
[2022-09-23 23:50] VITALS: BP 126/80
--- NOTE | 2022-09-24 00:05 | ED General ---
General Stated Complaint: NEEDS HELP WITH CATHETER ISSUE Source of Information: Patient Exam Limitations: No Limitations History of Present Illness Date Seen by Provider: Sep 24, 2022 Time Seen by Provider: 23:53 Initial Comments 67-year-old female presents for ureterostomy bag leaking. She request help changing it. 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 Her daughter typically helps her but is not available in the middle of the night. No other issues. All other systems reviewed and negative except documented per HPI. Voice recognition software was used to help create this chart Allergies and Home Medications Allergies Coded Allergies: bacitracin (Verified Allergy, Intermediate, "I BREAK OUT IN A RASH ALL OVER.", 04/02/22) neomycin (Verified Allergy, Intermediate, "I BREAK OUT IN A RASH ALL OVER.", 04/02/22) polymyxin B (Verified Allergy, Intermediate, "I BREAK OUT IN A RASH ALL OVER.", 04/02/22) ibuprofen (Verified Allergy, Mild, RASH, 04/02/22) naproxen (Verified Allergy, Mild, RASH, 04/02/22) strawberry (Verified Allergy, Mild, 04/02/22) sulfamethoxazole (Verified Allergy, Unknown, 04/02/22) tramadol (Verified Allergy, Unknown, Has rec lortab & oxycodone in the past, 06/21/22) trimethoprim (Verified Allergy, Unknown, 04/02/22) Patient Home Medication List Home Medication List Reviewed: Yes Albuterol Sulfate (Proventil Hfa) 90 Mcg Hfa.aer.ad, 2 PUFF INH Q6H PRN for WHEEZING, (Reported) Entered as Reported by: MICHAEL GARZA on 03/19/22 0857 Alosetron HCl (Alosetron HCl) 0.5 Mg Tablet, 0.5 MG PO BID, (Reported) Entered as Reported by: MICHAEL GARZA on 03/19/22 0857 Apixaban (Eliquis) 5 Mg Tablet, 5 MG PO BID, (Reported) Entered as Reported by: GRETA MANCILLA on 07/11/17 1530 Benzonatate (Tessalon Perles) 100 Mg Capsule, 200 MG PO Q8H PRN for cough Prescribed by: IGNA GUTIERREZ on 02/10/22 1611 Buspirone HCl (Buspirone HCl) 15 Mg Tablet, 15 MG PO TID, (Reported) Entered as Reported by: SERENITY COPELAND on 11/08/21 1216 Clonazepam (Clonazepam) 1 Mg Tablet, 1 MG PO BID, (Reported) Entered as Reported by: JAMIE GOVEA on 04/20/19 1024 Cyclobenzaprine HCl (Cyclobenzaprine HCl) 10 Mg Tablet, 10 MG PO TID PRN for SPASMS, (Reported) Entered as Reported by: MICHAEL GARZA on 03/19/22 0857 Dapagliflozin Propanediol (Farxiga) 5 Mg Tablet, 5 MG PO DAILY, (Reported) Entered as Reported by: GRETA MANCILLA on 05/21/18 1455 Diltiazem HCl (Diltiazem HCl) 90 Mg Tablet, 90 MG PO TID, (Reported) Entered as Reported by: SERENITY COPELAND on 11/08/21 1132 Eluxadoline (Viberzi) 75 Mg Tablet, 75 MG PO BID, (Reported) Entered as Reported by: MICHAEL GARZA on 03/19/22 0857 Epinephrine (Epipen) 0.3 Mg/0.3 Ml Auto.injct, 0.3 MG IJ PRN, (Reported) Entered as Reported by: MICHAEL GARZA on 03/19/22 0857 Erenumab-Aooe (Aimovig Autoinjector) 70 Mg/1 Ml Auto.injct, 70 MG MONTHLY, (Reported) Entered as Reported by: SERENITY COPELAND on 12/30/19 1728 Ertapenem Sodium (Ertapenem) 1 Gram Vial, 1 GM IM DAILY Prescribed by: BAYLEE WHITE on 04/03/22 1029 Fludrocortisone Acetate (Fludrocortisone Acetate) 0.1 Mg Tab, 0.1 MG PO EVERY OTHER DAY, (Reported) Entered as Reported by: SERENITY COPELAND on 11/08/21 1132 Fluticasone Furoate (Flonase Sensimist) 27.5 Mcg/Actuation [place].susp, 2 SPRAYS NSEACH DAILY, (Reported) Entered as Reported by: MICHAEL GARZA on 03/19/22 0857 Gabapentin (Neurontin) 300 Mg Capsule, 900 MG PO TID, (Reported) Entered as Reported by: RADHA KATHLEEN on 04/03/22 1101 Hydrocodone/Acetaminophen (Hydrocodone-Acetamin 5-325 mg) 5 Mg-325 Mg Tablet, 1 TAB PO Q4H PRN for PAIN-MODERATE (5-7) Prescribed by: Angela Mcgovern on 07/31/22 1529 Hydrocodone/Acetaminophen (Hydrocodone-Acetamin 5-325 mg) 5 Mg-325 Mg Tablet, 1 TAB PO Q6H PRN for PAIN-MODERATE (5-7) Prescribed by: GINA GUTIERREZ on 08/17/22 1222 Hydrocodone/Acetaminophen (Hydrocodone-Acetamin 5-325 mg) 5 Mg-325 Mg Tablet, 1 TAB PO Q4H PRN for PAIN-MODERATE (5-7) Prescribed by: Angela Mcgovern on 09/08/22 1306 Ipratropium/Albuterol Sulfate (Iprat-Albut 0.5-3(2.5) mg/3 ml) 0.5 Mg-3 Mg (2.5 Mg Base)/3 Ml Ampul.neb, 3 ML IH Q6H PRN for SHORTNESS OF BREATH, (Reported) Entered as Reported by: MICHAEL GARZA on 03/19/22 0857 Lamotrigine (Lamotrigine) 25 Mg Tablet, 25 MG PO BID, (Reported) Entered as Reported by: SERENITY COPELAND on 11/08/21 1132 Latanoprost (Xalatan) 0.005 % Drops, 1 DROP OU HS, (Reported) Entered as Reported by: SERENITY COPELAND on 11/08/21 1132 Levocetirizine Dihydrochloride (Levocetirizine Dihydrochloride) 5 Mg Tablet, 5 MG PO DAILY, (Reported) Entered as Reported by: URSZULA BELL on 05/14/18 0828 Lidocaine (Lidocaine) 4 % Adh..patch, 1 EACH TP DAILY, (Reported) Entered as Reported by: MICHAEL GARZA on 03/19/22 0857 Lipase/Protease/Amylase (Zenpep Dr 40,000 Units Capsule) [id number] Capsule.dr, 2 EACH PO TID, (Reported) Entered as Reported by: MICHAEL GARZA on 03/19/22 0857 Meclizine HCl (Meclizine HCl) 25 Mg Tablet, 25 MG PO Q8H PRN for DIZZINESS, (Reported) Entered as Reported by: JESSICA GILMORE on 02/28/21 1353 Memantine HCl (Memantine HCl) 10 Mg Tablet, 10 MG PO DAILY, (Reported) Entered as Reported by: BIENVENIDO FARRELL on 07/28/15 1444 Montelukast Sodium (Montelukast Sodium) 10 Mg Tablet, 10 MG PO HS, (Reported) Entered as Reported by: SERENITY COPELAND on 11/08/21 1216 Naloxone HCl (Narcan) 4 Mg/Actuation [place], 4 MG NS PRN, (Reported) Entered as Reported by: MICHAEL GARZA on 03/19/22 0857 Nicotine (Nicotrol) 10 Mg Cartridge, INHALER NS UD PRN for SMOKING CESSATION, (Reported) Entered as Reported by: SERENIYT COPELAND on 11/08/21 1132 Nitroglycerin (Nitroglycerin) 0.4 Mg Tab.subl, 0.4 MG SL UD PRN for CHEST PAIN (ANGINA), (Reported) Entered as Reported by: SERENITY COPELAND on 11/08/21 113 Oxycodone HCl (Roxicodone) 15 Mg Tablet, 15 MG PO Q6H PRN for PAIN-SEVERE (8-10) Prescribed by: BAYLEE WHITE on 06/21/22 1200 Pantoprazole Sodium (Pantoprazole Sodium) 40 Mg Tablet.dr, 40 MG PO DAILY, (Reported) Entered as Reported by: MICHAEL GARZA on 03/19/22 08 Primidone (Mysoline) 250 Mg Tablet, 250 MG PO BID, (Reported) Entered as Reported by: MICHAEL GARZA on 03/19/22 0857 Ropinirole HCl (Ropinirole HCl) 2 Mg Tablet, 4 MG PO HS, (Reported) Entered as Reported by: SERENITY COPELAND on 12/30/19 1728 Rosuvastatin Calcium (Rosuvastatin Calcium) 20 Mg Tablet, 20 MG PO DAILY, (Reported) Entered as Reported by: SERENITY COPELAND on 11/08/21 113 Suvorexant (Belsomra) 10 Mg Tablet, 10 MG PO HS, (Reported) Entered as Reported by: MICHAEL GARZA on 03/19/22 0857 Tiotropium Br/Olodaterol HCl (Stiolto Respimat Inhal [place]) 2.5 Mcg-2.5 Mcg/Actuation Mist.inhal, 4 GM IH DAILY, (Reported) Entered as Reported by: RADHA KATHLEEN on 04/03/22 1106 Trazodone HCl (Trazodone HCl) 100 Mg Tablet, 100 MG PO HS, (Reported) Entered as Reported by: MICHAEL GARZA on 03/19/22 0857 Review of Systems Review of Systems Constitutional: see HPI Past Nkuoqla-Numwbh-Fvojdq Hx Patient Social History Tobacco Use?: No Use of E-Cig and/or Vaping dev: No Substance use?: No Alcohol Use?: No Immunizations Up To Date Tetanus Booster (TDap): Unknown PED Vaccines UTD: No First/Initial COVID19 Vaccinat: 2021 Second COVID19 Vaccination Hugo: 2021 Third COVID19 Vaccination Date: 2021 Seasonal Allergies Seasonal Allergies: Yes Past Medical History Surgery/Hospitalization HX: PMH;HF, COPD, AND STROKE HX., PALPATATIONS SURGERY; urostomy, TUBAL, AND EXPLORATORY, HEART CATH(03/28), BILATERAL HIP AND KNEE REPLACEMENTS, FOUR NECK SURGERIES Surgeries: Yes (NECK, HIATAL HERNIA, CARDIAC ABLATION, BILAT ELBOW, BILAT CTR, BLADDER SLIN) Cystectomy, Gallbladder, Orthopedic, Pancreatic Respiratory: Yes (HOME ) COPD, Emphysema Currently Using CPAP: No Currently Using BIPAP: No Cardiac: Yes (CARDIAC ABLATION 2015) High Cholesterol, Irregular Heartbeat, Palpitations Neurological: Yes (PARESTHESIAS OF BILAT LOWER EXT DUE TO FORAMINAL STENOSIS) Seizure Disorder, TIA 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 Disorders: No 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 Disorders: Denies CREATIVE GURU History: Menopausal Sexually Transmitted Disease: No HIV/AIDS: No Genitourinary: Yes UTI-Chronic Gastrointestinal: Yes (FREQ DIARRHEA, DYSPHAGIA) Gastroesophageal Reflux, Chronic Diarrhea Musculoskeletal: Yes (CERVICAL SUGERY) Arthritis, Back Injury Endocrine: Yes (DIET CONTROLLED NIDDM--NO LONGER ON MEDICATIONS; THYROID NODULES) Diabetes, Non-Insulin dep HEENT: Yes (LEFT EAR HEARING IMPAIRMENT) Cataract Loss of Vision: Denies Hearing Impairment: Hard of Hearing Cancer: Yes Bladder Did You Recieve Any Treatments: Yes What Type of Treatment Did You: Surgical Intervention Psychosocial: No Anxiety, Depression Integumentary: No Psoriasis Blood Disorders: No Adverse Reaction/Blood Tranf: No Family Medical History Cardiovascular disease G8 BROTHER (TRIPLE BYPASS) Diabetes mellitus 19 MOTHER FH: COPD (chronic obstructive pulmonary disease) 19 MOTHER FH: breast cancer 19 MOTHER FHx: brain cancer 19 FATHER No Pertinent Family Hx Physical Exam Vital Signs Capillary Refill : Height, Weight, BMI Height: 5'4.00" Weight: 165lbs. 0.0oz. 72.444917td; 23.00 BMI Method:Stated General Appearance: No Apparent Distress, WD/WN Eyes: Bilateral Eye Normal Inspection, Bilateral Eye PERRL, Bilateral Eye EOMI HEENT: Normal ENT Inspection, Pharynx Normal Neck: Full Range of Motion Respiratory: Chest Non Tender, Lungs Clear, Normal Breath Sounds, No Accessory Muscle Use Cardiovascular: Regular Rate, Rhythm, No Murmur, Normal Peripheral Pulses Gastrointestinal: Non Tender, Soft, Other (Urostomy right mid abdomen.) Progress/Results/Core Measures Suspected Sepsis SIRS Temperature: Pulse: Respiratory Rate: Blood Pressure / Mean: Results/Orders Vital Signs/I&O Capillary Refill : Departure Communication (Admissions) Patient is hemodynamically stable. Requesting only dressing catheter change w ith the bag. This was changed without complication. Discharged in stable condition. Impression Primary Impression: Leakage from urinary catheter Qualified Codes: T83.038A - Leakage of other urinary catheter, initial encounter Disposition: 01 HOME, SELF-CARE Condition: Stable Departure-Patient Inst. Referrals: FAHAD TYLER MD (PCP) Primary Care Physician SERENITY LONG DO (Family) Primary Care Physician Add. Discharge Instructions: Dressing and bag for your catheter was changed. Follow-up as needed. MAGALIE TOMLINSON DO Sep 24, 2022 00:05
== END 2022-09-24 00:20 | disposition home or self-care (01) ==
LOC: EDUNIT# 23:38 → ER 23:41
DX: T83.038A Leakage of other urinary catheter, initial encounter (principal); J43.9 Emphysema, unspecified; Z99.81 Dependence on supplemental oxygen; Y82.8 Other medical devices associated with adverse incidents
CPT/HCPCS: 99281

== ENCOUNTER 2022-09-29 13:01 | Emergency (ER) | payer MEDICARE, MEDICAID ==
[~2022-09-29] VITALS: Ht 162 cm; Wt 57.0 kg
[2022-09-29 13:10] VITALS: BP 129/71
--- NOTE | 2022-09-29 13:19 | ED General ---
General Chief Complaint: General Problems/Pain Stated Complaint: HEADACHE/NECK PAIN/ CHANGE UROLOGY BAG Source of Information: Patient Exam Limitations: No Limitations History of Present Illness Date Seen by Provider: Sep 29, 2022 Time Seen by Provider: 13:07 Initial Comments 67-year-old female presents to the emergency department today requesting a change of her urostomy bag. She was seen last weekend for the same. She is also requesting pain medication for her chronic Neck and back pain. She is actually seen at [facility] emergency department last night per her report major labs as of the work-up and no acute causes were found for her head neck and back pain. She was advised that they could not treat her chronic pain. All other systems reviewed and negative except documented per HPI. Voice recognition software was used to help create this chart Allergies and Home Medications Allergies Coded Allergies: bacitracin (Verified Allergy, Intermediate, "I BREAK OUT IN A RASH ALL OVER.", 04/02/22) neomycin (Verified Allergy, Intermediate, "I BREAK OUT IN A RASH ALL OVER.", 04/02/22) polymyxin B (Verified Allergy, Intermediate, "I BREAK OUT IN A RASH ALL OVER.", 04/02/22) ibuprofen (Verified Allergy, Mild, RASH, 04/02/22) naproxen (Verified Allergy, Mild, RASH, 04/02/22) strawberry (Verified Allergy, Mild, 04/02/22) sulfamethoxazole (Verified Allergy, Unknown, 04/02/22) tramadol (Verified Allergy, Unknown, Has rec lortab & oxycodone in the past, 06/21/22) trimethoprim (Verified Allergy, Unknown, 04/02/22) Patient Home Medication List Home Medication List Reviewed: Yes Albuterol Sulfate (Proventil Hfa) 90 Mcg Hfa.aer.ad, 2 PUFF INH Q6H PRN for WHEEZING, (Reported) Entered as Reported by: MICHAEL GARZA on 03/19/22 0857 Alosetron HCl (Alosetron HCl) 0.5 Mg Tablet, 0.5 MG PO BID, (Reported) Entered as Reported by: MICHAEL GARZA on 03/19/22 0857 Apixaban (Eliquis) 5 Mg Tablet, 5 MG PO BID, (Reported) Entered as Reported by: GRETA MANCILLA on 07/11/17 1530 Benzonatate (Tessalon Perles) 100 Mg Capsule, 200 MG PO Q8H PRN for cough Prescribed by: GINA GUTIERREZ on 02/10/22 1611 Buspirone HCl (Buspirone HCl) 15 Mg Tablet, 15 MG PO TID, (Reported) Entered as Reported by: SERENITY COPELAND on 11/08/21 1216 Clonazepam (Clonazepam) 1 Mg Tablet, 1 MG PO BID, (Reported) Entered as Reported by: JAMIE GOVEA on 04/20/19 1024 Cyclobenzaprine HCl (Cyclobenzaprine HCl) 10 Mg Tablet, 10 MG PO TID PRN for SPASMS, (Reported) Entered as Reported by: MICHAEL GARZA on 03/19/22 0857 Dapagliflozin Propanediol (Farxiga) 5 Mg Tablet, 5 MG PO DAILY, (Reported) Entered as Reported by: GRETA MANCILLA on 05/21/18 1455 Diltiazem HCl (Diltiazem HCl) 90 Mg Tablet, 90 MG PO TID, (Reported) Entered as Reported by: SERENITY COPELAND on 11/08/21 1132 Eluxadoline (Viberzi) 75 Mg Tablet, 75 MG PO BID, (Reported) Entered as Reported by: MICHAEL GARZA on 03/19/22 0857 Epinephrine (Epipen) 0.3 Mg/0.3 Ml Auto.injct, 0.3 MG IJ PRN, (Reported) Entered as Reported by: MICHAEL GARZA on 03/19/22 0857 Erenumab-Aooe (Aimovig Autoinjector) 70 Mg/1 Ml Auto.injct, 70 MG MONTHLY, (Reported) Entered as Reported by: SERENITY COPELAND on 12/30/19 1728 Ertapenem Sodium (Ertapenem) 1 Gram Vial, 1 GM IM DAILY Prescribed by: BAYLEE WHITE on 04/03/22 1029 Fludrocortisone Acetate (Fludrocortisone Acetate) 0.1 Mg Tab, 0.1 MG PO EVERY OTHER DAY, (Reported) Entered as Reported by: SERENITY COPELAND on 11/08/21 1132 Fluticasone Furoate (Flonase Sensimist) 27.5 Mcg/Actuation [place].susp, 2 SPRAYS NSEACH DAILY, (Reported) Entered as Reported by: MICHAEL GARZA on 03/19/22 0857 Gabapentin (Neurontin) 300 Mg Capsule, 900 MG PO TID, (Reported) Entered as Reported by: RADHA KATHLEEN on 04/03/22 1101 Hydrocodone/Acetaminophen (Hydrocodone-Acetamin 5-325 mg) 5 Mg-325 Mg Tablet, 1 TAB PO Q4H PRN for PAIN-MODERATE (5-7) Prescribed by: Angela Mcgovern on 07/31/22 1529 Hydrocodone/Acetaminophen (Hydrocodone-Acetamin 5-325 mg) 5 Mg-325 Mg Tablet, 1 TAB PO Q6H PRN for PAIN-MODERATE (5-7) Prescribed by: GINA GUTIERERZ on 08/17/22 1222 Hydrocodone/Acetaminophen (Hydrocodone-Acetamin 5-325 mg) 5 Mg-325 Mg Tablet, 1 TAB PO Q4H PRN for PAIN-MODERATE (5-7) Prescribed by: Angela Mcgovern on 09/08/22 1306 Ipratropium/Albuterol Sulfate (Iprat-Albut 0.5-3(2.5) mg/3 ml) 0.5 Mg-3 Mg (2.5 Mg Base)/3 Ml Ampul.neb, 3 ML IH Q6H PRN for SHORTNESS OF BREATH, (Reported) Entered as Reported by: MICHAEL GARZA on 03/19/22 0857 Lamotrigine (Lamotrigine) 25 Mg Tablet, 25 MG PO BID, (Reported) Entered as Reported by: SERENITY COPELAND on 11/08/21 1132 Latanoprost (Xalatan) 0.005 % Drops, 1 DROP OU HS, (Reported) Entered as Reported by: SERENITY COPELAND on 11/08/21 1132 Levocetirizine Dihydrochloride (Levocetirizine Dihydrochloride) 5 Mg Tablet, 5 MG PO DAILY, (Reported) Entered as Reported by: URSZULA BELL on 05/14/18 0828 Lidocaine (Lidocaine) 4 % Adh..patch, 1 EACH TP DAILY, (Reported) Entered as Reported by: MICHAEL GARZA on 03/19/22 0857 Lipase/Protease/Amylase (Zenpep Dr 40,000 Units Capsule) [id number] Capsule.dr, 2 EACH PO TID, (Reported) Entered as Reported by: MICHAEL GARAZ on 03/19/22 0857 Meclizine HCl (Meclizine HCl) 25 Mg Tablet, 25 MG PO Q8H PRN for DIZZINESS, (Reported) Entered as Reported by: JESSICA GILMORE on 02/28/21 1353 Memantine HCl (Memantine HCl) 10 Mg Tablet, 10 MG PO DAILY, (Reported) Entered as Reported by: BIENVENIDO FARRELL on 07/28/15 1444 Montelukast Sodium (Montelukast Sodium) 10 Mg Tablet, 10 MG PO HS, (Reported) Entered as Reported by: SERENITY COPELAND on 11/08/21 1216 Naloxone HCl (Narcan) 4 Mg/Actuation [place], 4 MG NS PRN, (Reported) Entered as Reported by: MICHAEL GARZA on 03/19/22 08 Nicotine (Nicotrol) 10 Mg Cartridge, INHALER NS UD PRN for SMOKING CESSATION, (Reported) Entered as Reported by: SERENITY COPELAND on 11/08/21 1132 Nitroglycerin (Nitroglycerin) 0.4 Mg Tab.subl, 0.4 MG SL UD PRN for CHEST PAIN (ANGINA), (Reported) Entered as Reported by: SERENITY COPELAND on 11/08/21 1132 Oxycodone HCl (Roxicodone) 15 Mg Tablet, 15 MG PO Q6H PRN for PAIN-SEVERE (8-10) Prescribed by: BAYLEE WHITE on 06/21/22 1200 Pantoprazole Sodium (Pantoprazole Sodium) 40 Mg Tablet.dr, 40 MG PO DAILY, (R eported) Entered as Reported by: MICHAEL GARZA on 03/19/22 08 Primidone (Mysoline) 250 Mg Tablet, 250 MG PO BID, (Reported) Entered as Reported by: MICHAEL GARZA on 03/19/22 08 Ropinirole HCl (Ropinirole HCl) 2 Mg Tablet, 4 MG PO HS, (Reported) Entered as Reported by: SERENITY COPELAND on 12/30/19 1728 Rosuvastatin Calcium (Rosuvastatin Calcium) 20 Mg Tablet, 20 MG PO DAILY, (Reported) Entered as Reported by: SERENITY COPELAND on 11/08/21 1132 Suvorexant (Belsomra) 10 Mg Tablet, 10 MG PO HS, (Reported) Entered as Reported by: MICHAEL GARZA on 03/19/22 0857 Tiotropium Br/Olodaterol HCl (Stiolto Respimat Inhal [place]) 2.5 Mcg-2.5 Mcg/Actuation Mist.inhal, 4 GM IH DAILY, (Reported) Entered as Reported by: RADHA KATHLEEN on 04/03/22 1106 Trazodone HCl (Trazodone HCl) 100 Mg Tablet, 100 MG PO HS, (Reported) Entered as Reported by: MICHAEL GARZA on 03/19/22 0857 Review of Systems Review of Systems Constitutional: see HPI Past Ylvzsdh-Ltbasj-Hpttcn Hx Patient Social History Tobacco Use?: No Use of E-Cig and/or Vaping dev: No Substance use?: No Alcohol Use?: No Immunizations Up To Date Tetanus Booster (TDap): Unknown PED Vaccines UTD: No First/Initial COVID19 Vaccinat: 2021 Second COVID19 Vaccination Hugo: 2021 Third COVID19 Vaccination Date: 2021 Seasonal Allergies Seasonal Allergies: Yes Past Medical History Surgery/Hospitalization HX: PMH;HF, COPD, AND STROKE HX., PALPATATIONS SURGERY; urostomy, TUBAL, AND EXPLORATORY, HEART CATH(03/28), BILATERAL HIP AND KNEE REPLACEMENTS, FOUR NECK SURGERIES Surgeries: Yes (NECK, HIATAL HERNIA, CARDIAC ABLATION, BILAT ELBOW, BILAT CTR, BLADDER SLIN) Cystectomy, Gallbladder, Orthopedic, Pancreatic Respiratory: Yes (HOME ) COPD, Emphysema Currently Using CPAP: No Currently Using BIPAP: No Cardiac: Yes (CARDIAC ABLATION 2015) High Cholesterol, Irregular Heartbeat, Palpitations Neurological: Yes (PARESTHESIAS OF BILAT LOWER EXT DUE TO FORAMINAL STENOSIS) Seizure Disorder, TIA 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 Disorders: No 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 Disorders: Denies REST ROOM MATRON History: Menopausal Sexually Transmitted Disease: No HIV/AIDS: No Genitourinary: Yes UTI-Chronic Gastrointestinal: Yes (FREQ DIARRHEA, DYSPHAGIA) Gastroesophageal Reflux, Chronic Diarrhea Musculoskeletal: Yes (CERVICAL SUGERY) Arthritis, Back Injury Endocrine: Yes (DIET CONTROLLED NIDDM--NO LONGER ON MEDICATIONS; THYROID NODULES) Diabetes, Non-Insulin dep HEENT: Yes (LEFT EAR HEARING IMPAIRMENT) Cataract Loss of Vision: Denies Hearing Impairment: Hard of Hearing Cancer: Yes Bladder Did You Recieve Any Treatments: Yes What Type of Treatment Did You: Surgical Intervention Psychosocial: No Anxiety, Depression Integumentary: No Psoriasis Blood Disorders: No Adverse Reaction/Blood Tranf: No Family Medical History Cardiovascular disease G8 BROTHER (TRIPLE BYPASS) Diabetes mellitus 19 MOTHER FH: COPD (chronic obstructive pulmonary disease) 19 MOTHER FH: breast cancer 19 MOTHER FHx: brain cancer 19 FATHER No Pertinent Family Hx Physical Exam Vital Signs Vital Signs - First Documented 09/29/22 13:10 Temp 37.0 Pulse 93 Resp 16 B/P (MAP) 129/71 (90) Pulse Ox 93 Capillary Refill : Height, Weight, BMI Height: 5'4.00" Weight: 165lbs. 0.0oz. 72.665406gv; 23.00 BMI Method:Stated General Appearance: No Apparent Distress, WD/WN Eyes: Bilateral Eye Normal Inspection, Bilateral Eye PERRL, Bilateral Eye EOMI HEENT: Normal ENT Inspection, Pharynx Normal Neck: Normal Inspection, Non Tender, Supple Respiratory: Chest Non Tender, Lungs Clear, No Accessory Muscle Use, No Respiratory Distress Cardiovascular: Regular Rate, Rhythm, No Murmur, Normal Peripheral Pulses Gastrointestinal: Non Tender, Soft, Other (P.o.Right mid abdomen) Extremity: Normal Capillary Refill, Non Tender, No Calf Tenderness Neurologic/Psychiatric: Alert, Oriented x3, Normal Mood/Affect Progress/Results/Core Measures Suspected Sepsis SIRS Temperature: Pulse: Respiratory Rate: Blood Pressure / Mean: Results/Orders Vital Signs/I&O 09/29/22 13:10 Temp 37.0 Pulse 93 Resp 16 B/P (MAP) 129/71 (90) Pulse Ox 93 Capillary Refill : Departure Communication (Admissions) Patient is hemodynamically stable with no red flag symptoms. She has what she admits is chronic pain. No new injuries or exacerbations. She was seen last night with full work-up at [facility] and reportedly negative. She was not given anything for pain at that time. She request change her urostomy bag as her granddaughter is off on the weekends and cannot help her. She states it is leaking around the bag. She has supplies at bedside. This changed without complication. Impression Primary Impression: Chronic pain Qualified Codes: G89.29 - Other chronic pain Additional Impression: Encounter for counseling for urostomy management Disposition: HOME, SELF-CARE Condition: Stable Departure-Patient Inst. Referrals: SERENITY LONG DO (PCP/Family) Primary Care Physician Patient Instructions: Chronic pain Add. Discharge Instructions: I am unable to to treat your chronic pain from the emergency department. We have changed your urostomy bag. Continue to have your granddaughter helping with this at home. Speak with your primary doctor about getting home health you may help manage this as well. Return to the emergency department for any severe concerns. You will need to see your primary doctor for any pain management needs. All discharge instructions reviewed with patient and/or family. Voiced understanding. MAGALIE TOMLINSON DO Sep 29, 2022 13:19
== END 2022-09-29 13:38 | disposition home or self-care (01) ==
LOC: EDUNIT# 13:01 → ER 13:04
DX: G89.29 Other chronic pain (principal); Z46.6 Encounter for fitting and adjustment of urinary device; J43.9 Emphysema, unspecified; Z99.81 Dependence on supplemental oxygen
CPT/HCPCS: 99281

== ENCOUNTER 2022-10-02 03:23 | Emergency (ER) | payer MEDICARE, MEDICAID ==
[~2022-10-02] VITALS: Ht 162.6 cm; Wt 57.0 kg
--- NOTE | 2022-10-02 03:44 | ED Fall/Injury ---
General Chief Complaint: Trauma-Non Activation Stated Complaint: HIP PAIN Source: patient, EMS History of Present Illness Date Seen by Provider: Oct 02, 2022 Time Seen by Provider: 03:30 Initial Comments Patient is a 67-year-old female who presents to the emergency department today with a chief complaint of fall from bed. Patient states she was rolling over in the bed and rolled out onto the floor hitting her head on the coffee table. She denies loss of consciousness. She states she has a headache, mid and left-sided neck pain, left hip pain and low back pain. She is not nauseous or short of breath. She is chronically on 4 L of oxygen per nasal cannula. No nausea or vomiting. Chronic bony issues in the left forearm for which she is in a short arm splint. She has followed up with [facility] for this. She states she has not patient tonight. She has slightly slurred speech. Oriented. She tells me she had a "brain bleed" diagnosed last week at [facility]. She was transferred to [place] and stayed for 4 days. Currently off Eliquis. Occurred: just prior to arrival Severity: moderate Injuries/Pain Location: head, neck, lower extremity Context: other Loss of Consciousness: no loss of consciousness Associated Symptoms (Fall): Headache Allergies and Home Medications Allergies Coded Allergies: bacitracin (Verified Allergy, Intermediate, "I BREAK OUT IN A RASH ALL OVER.", 04/02/22) neomycin (Verified Allergy, Intermediate, "I BREAK OUT IN A RASH ALL OVER.", 04/02/22) polymyxin B (Verified Allergy, Intermediate, "I BREAK OUT IN A RASH ALL OVER.", 04/02/22) ibuprofen (Verified Allergy, Mild, RASH, 04/02/22) naproxen (Verified Allergy, Mild, RASH, 04/02/22) strawberry (Verified Allergy, Mild, 04/02/22) sulfamethoxazole (Verified Allergy, Unknown, 04/02/22) tramadol (Verified Allergy, Unknown, Has rec lortab & oxycodone in the past, 06/21/22) trimethoprim (Verified Allergy, Unknown, 04/02/22) Patient Home Medication List Home Medication List Reviewed: Yes Albuterol Sulfate (Proventil Hfa) 90 Mcg Hfa.aer.ad, 2 PUFF INH Q6H PRN for WHEEZING, (Reported) Entered as Reported by: MICHAEL GARZA on 03/19/22 0857 Alosetron HCl (Alosetron HCl) 0.5 Mg Tablet, 0.5 MG PO BID, (Reported) Entered as Reported by: MICHAEL GARZA on 03/19/22 0857 Apixaban (Eliquis) 5 Mg Tablet, 5 MG PO BID, (Reported) Entered as Reported by: GRETA MANCILLA on 07/11/17 1530 Benzonatate (Tessalon Perles) 100 Mg Capsule, 200 MG PO Q8H PRN for cough Prescribed by: GINA GUTIERREZ on 02/10/22 1611 Buspirone HCl (Buspirone HCl) 15 Mg Tablet, 15 MG PO TID, (Reported) Entered as Reported by: SERENITY COPELAND on 11/08/21 1216 Clonazepam (Clonazepam) 1 Mg Tablet, 1 MG PO BID, (Reported) Entered as Reported by: JAMIE GOVEA on 04/20/19 1024 Cyclobenzaprine HCl (Cyclobenzaprine HCl) 10 Mg Tablet, 10 MG PO TID PRN for SPASMS, (Reported) Entered as Reported by: MICHAEL GARZA on 03/19/22 0857 Dapagliflozin Propanediol (Farxiga) 5 Mg Tablet, 5 MG PO DAILY, (Reported) Entered as Reported by: GRETA MANCILLA on 05/21/18 1455 Diltiazem HCl (Diltiazem HCl) 90 Mg Tablet, 90 MG PO TID, (Reported) Entered as Reported by: SERENITY COPELAND on 11/08/21 1132 Eluxadoline (Viberzi) 75 Mg Tablet, 75 MG PO BID, (Reported) Entered as Reported by: MICHAEL GARZA on 03/19/22 0857 Epinephrine (Epipen) 0.3 Mg/0.3 Ml Auto.injct, 0.3 MG IJ PRN, (Reported) Entered as Reported by: MICHAEL GARZA on 03/19/22 0857 Erenumab-Aooe (Aimovig Autoinjector) 70 Mg/1 Ml Auto.injct, 70 MG MONTHLY, (Reported) Entered as Reported by: SERENITY COPELAND on 12/30/19 1728 Ertapenem Sodium (Ertapenem) 1 Gram Vial, 1 GM IM DAILY Prescribed by: BAYLEE WHITE on 04/03/22 1029 Fludrocortisone Acetate (Fludrocortisone Acetate) 0.1 Mg Tab, 0.1 MG PO EVERY OTHER DAY, (Reported) Entered as Reported by: SERENITY COPELAND on 11/08/21 1132 Fluticasone Furoate (Flonase Sensimist) 27.5 Mcg/Actuation Iona.susp, 2 SPRAYS NSEACH DAILY, (Reported) Entered as Reported by: MICHAEL GARZA on 03/19/22 0857 Gabapentin (Neurontin) 300 Mg Capsule, 900 MG PO TID, (Reported) Entered as Reported by: RADHA KATHLEEN on 04/03/22 1101 Hydrocodone/Acetaminophen (Hydrocodone-Acetamin 5-325 mg) 5 Mg-325 Mg Tablet, 1 TAB PO Q4H PRN for PAIN-MODERATE (5-7) Prescribed by: Angela Mcgovern on 07/31/22 1529 Hydrocodone/Acetaminophen (Hydrocodone-Acetamin 5-325 mg) 5 Mg-325 Mg Tablet, 1 TAB PO Q6H PRN for PAIN-MODERATE (5-7) Prescribed by: GINA GUTIERREZ on 08/17/22 1222 Hydrocodone/Acetaminophen (Hydrocodone-Acetamin 5-325 mg) 5 Mg-325 Mg Tablet, 1 TAB PO Q4H PRN for PAIN-MODERATE (5-7) Prescribed by: Angela Mcgovern on 09/08/22 1306 Ipratropium/Albuterol Sulfate (Iprat-Albut 0.5-3(2.5) mg/3 ml) 0.5 Mg-3 Mg (2.5 Mg Base)/3 Ml Ampul.neb, 3 ML IH Q6H PRN for SHORTNESS OF BREATH, (Reported) Entered as Reported by: MICHAEL GARZA on 03/19/22 0857 Lamotrigine (Lamotrigine) 25 Mg Tablet, 25 MG PO BID, (Reported) Entered as Reported by: SERENITY COPELAND on 11/08/21 1132 Latanoprost (Xalatan) 0.005 % Drops, 1 DROP OU HS, (Reported) Entered as Reported by: SERENITY COPELAND on 11/08/21 1132 Levocetirizine Dihydrochloride (Levocetirizine Dihydrochloride) 5 Mg Tablet, 5 MG PO DAILY, (Reported) Entered as Reported by: URSZULA BELL on 05/14/18 0828 Lidocaine (Lidocaine) 4 % Adh..patch, 1 EACH TP DAILY, (Reported) Entered as Reported by: MICHAEL GARZA on 03/19/22 0857 Lipase/Protease/Amylase (Zenpep Dr 40,000 Units Capsule) 40-126-168 Capsule., 2 EACH PO TID, (Reported) Entered as Reported by: MICHAEL GARZA on 03/19/22 0857 Meclizine HCl (Meclizine HCl) 25 Mg Tablet, 25 MG PO Q8H PRN for DIZZINESS, (Reported) Entered as Reported by: JESSICA GILMORE on 02/28/21 1353 Memantine HCl (Memantine HCl) 10 Mg Tablet, 10 MG PO DAILY, (Reported) Entered as Reported by: BIENVENIDO FARRELL on 07/28/15 1444 Montelukast Sodium (Montelukast Sodium) 10 Mg Tablet, 10 MG PO HS, (Reported) Entered as Reported by: SERENITY COPELAND on 11/08/21 1216 Naloxone HCl (Narcan) 4 Mg/Actuation Iona, 4 MG NS PRN, (Reported) Entered as Reported by: MICHAEL GARZA on 03/19/22 0857 Nicotine (Nicotrol) 10 Mg Cartridge, INHALER NS UD PRN for SMOKING CESSATION, (Reported) Entered as Reported by: SERENITY COPELAND on 11/08/21 1132 Nitroglycerin (Nitroglycerin) 0.4 Mg Tab.subl, 0.4 MG SL UD PRN for CHEST PAIN (ANGINA), (Reported) Entered as Reported by: SERENITY COPELAND on 11/08/21 1132 Oxycodone HCl (Roxicodone) 15 Mg Tablet, 15 MG PO Q6H PRN for PAIN-SEVERE (8-10) Prescribed by: BAYLEE WHITE on 06/21/22 1200 Pantoprazole Sodium (Pantoprazole Sodium) 40 Mg Tablet.dr, 40 MG PO DAILY, (Reported) Entered as Reported by: MICHAEL GARZA on 03/19/22 0857 Primidone (Mysoline) 250 Mg Tablet, 250 MG PO BID, (Reported) Entered as Reported by: MICHAEL GARZA on 03/19/22 0857 Ropinirole HCl (Ropinirole HCl) 2 Mg Tablet, 4 MG PO HS, (Reported) Entered as Reported by: SERENITY COPELAND on 12/30/19 1728 Rosuvastatin Calcium (Rosuvastatin Calcium) 20 Mg Tablet, 20 MG PO DAILY, (Reported) Entered as Reported by: SERENITY COPELAND on 11/08/21 1132 Suvorexant (Belsomra) 10 Mg Tablet, 10 MG PO HS, (Reported) Entered as Reported by: MICHAEL GARZA on 03/19/22 0857 Tiotropium Br/Olodaterol HCl (Stiolto Respimat Inhal Iona) 2.5 Mcg-2.5 Mcg/Actuation Mist.inhal, 4 GM IH DAILY, (Reported) Entered as Reported by: RADHA KATHLEEN on 04/03/22 1106 Trazodone HCl (Trazodone HCl) 100 Mg Tablet, 100 MG PO HS, (Reported) Entered as Reported by: MICHAEL GARZA on 03/19/22 0857 Review of Systems Review of Systems Constitutional: see HPI Eyes: No Symptoms Reported Ears, Nose, Mouth, Throat: no symptoms reported Respiratory: no symptoms reported Cardiovascular: no symptoms reported Gastrointestinal: no symptoms reported Genitourinary: no symptoms reported Musculoskeletal: back pain, joint pain (left hip), neck pain Psychiatric/Neurological: Headache Past Mkdbouf-Tbnarn-Ptanth Hx Immunizations Up To Date Tetanus Booster (TDap): Unknown PED Vaccines UTD: No First/Initial COVID19 Vaccinat: 2021 Second COVID19 Vaccination Hugo: 2021 Third COVID19 Vaccination Date: 2021 Seasonal Allergies Seasonal Allergies: Yes Past Medical History Surgery/Hospitalization HX: PMH;HF, COPD, AND STROKE HX., PALPATATIONS SURGERY; urostomy, TUBAL, AND EXPLORATORY, HEART CATH(03/28), BILATERAL HIP AND KNEE REPLACEMENTS, FOUR NECK SURGERIES Surgeries: Yes (NECK, HIATAL HERNIA, CARDIAC ABLATION, BILAT ELBOW, BILAT CTR, BLADDER SLIN) Cystectomy, Gallbladder, Orthopedic, Pancreatic Respiratory: Yes (HOME ) COPD, Emphysema Currently Using CPAP: No Currently Using BIPAP: No Cardiac: Yes (CARDIAC ABLATION 2016) High Cholesterol, Irregular Heartbeat, Palpitations Neurological: Yes (PARESTHESIAS OF BILAT LOWER EXT DUE TO FORAMINAL STENOSIS) Seizure Disorder, TIA 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 Disorders: No 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 Disorders: Denies [employer] History: Menopausal Sexually Transmitted Disease: No HIV/AIDS: No Genitourinary: Yes UTI-Chronic Gastrointestinal: Yes (FREQ DIARRHEA, DYSPHAGIA) Gastroesophageal Reflux, Chronic Diarrhea Musculoskeletal: Yes (CERVICAL SUGERY) Arthritis, Back Injury Endocrine: Yes (DIET CONTROLLED NIDDM--NO LONGER ON MEDICATIONS; THYROID NODULES) Diabetes, Non-Insulin dep HEENT: Yes (LEFT EAR HEARING IMPAIRMENT) Cataract Loss of Vision: Denies Hearing Impairment: Hard of Hearing Cancer: Yes Bladder Did You Recieve Any Treatments: Yes What Type of Treatment Did You: Surgical Intervention Psychosocial: No Anxiety, Depression Integumentary: No Psoriasis Blood Disorders: No Adverse Reaction/Blood Tranf: No Family Medical History Cardiovascular disease G8 BROTHER (TRIPLE BYPASS) Diabetes mellitus 19 MOTHER FH: COPD (chronic obstructive pulmonary disease) 19 MOTHER FH: breast cancer 19 MOTHER FHx: brain cancer 19 FATHER No Pertinent Family Hx Physical Exam Vital Signs Vital Signs - First Documented Capillary Refill : Height, Weight, BMI Height: 5'4.00" Weight: 165lbs. 0.0oz. [id number]; 21.00 BMI Method:Stated General Appearance: no apparent distress, thin (frail) HEENT: PERRL/EOMI Neck: other (midline tenderness about C4/5/6 and left paraspinous muscle tenderness; - cervical collar in place) Cardiovascular: regular rate, rhythm Respiratory: no respiratory distress, no accessory muscle use, decreased breath sounds Gastrointestinal: non tender, soft Extremities: no pedal edema, other (left forearm in short arm splint; intact motor/sensation to left fingers; tenderness left Lateral hip with good ROM - able to flex and extend left hip) Neurologic/Psychiatric: alert, normal mood/affect, oriented x 3 Skin: normal color, warm/dry Progress/Results/Core Measures Results/Orders My Orders Orders - GINA GUTIERREZ MD Ct Head/Cervical Spine Wo (10/02/22 03:44) Pelvis With Left Hip 2-3 Views (10/02/22 03:44) Vital Signs/I&O 10/02/22 10/02/22 10/02/22 03:26 03:26 03:26 Temp 36.4 36.4 Pulse 84 84 Resp 16 16 B/P (MAP) 121/82 (95) 121/82 (95) Pulse Ox 99 99 O2 Delivery Room Air Room Air Nasal Cannula O2 Flow Rate 4.00 4.00 Progress Progress Note : Time: 05:02 Diagnostic Imaging Diagonstic Imaging: CT Comments CT Head and cervical Spine per Stat Rad - no acute findings. Departure Impression Primary Impression: Fall from bed Qualified Codes: W06.XXXA - Fall from bed, initial encounter Additional Impression: Chronic pain Qualified Codes: G89.29 - Other chronic pain Disposition: HOME, SELF-CARE Condition: Stable Departure-Patient Inst. Decision time for Depature: 05:00 Referrals: SERENITY LONG DO (PCP/Family) Primary Care Physician Patient Instructions: Preventing falls in adults Add. Discharge Instructions: Alternate ice packs and heating pads to the sore areas of your neck and left hip. Acetaminophen 500mg tablets x2 every 6 hours as needed for headache. Follow up with your primary care doctor as needed. Return to the Emergency Department for any new, concerning or emergent complaints. Copy Copies To 1: SERENITY LONG KATHRYN M MD Oct 02, 2022 03:44
[2022-10-02 05:19] VITALS: BP 132/68
--- NOTE | 2022-10-02 05:46 | Diagnostic Imaging Report ---
PROCEDURE: CT head and CT cervical spine without contrast. TECHNIQUE: Multiple contiguous axial images were obtained through the brain and cervical spine without the use of intravenous contrast. Sagittal and coronal reformations through the cervical spine were then performed. Auto Exposure Controls were utilized during the CT exam to meet ALARA standards for radiation dose reduction. INDICATION: Head injury from a fall The ventricles are normal in size, shape and position. There are some decreased density in the periventricular white matter both hemispheres. There is a punctate area of increased density in the left basal ganglia that is unchanged from prior studies is likely calcification. There are no hemorrhages seen. There are no extra-axial fluid collections. IMPRESSION: Senescent changes of the brain. Left basal ganglia calcification. No acute abnormality seen CT cervical spine: Patient had interbody fusion from C3 through T1 with laminectomies at those levels. Alignment is normal. Hardware appears to be secure odontoid is intact. Atlantoaxial and basicervical relationships are normal. IMPRESSION: Long segment interbody fusion with laminectomy in the cervical spine. No acute abnormalities seen. Dictated by: Dictated on workstation # [id number]
--- NOTE | 2022-10-02 05:52 | Diagnostic Imaging Report ---
Indication: Left hip pain after a fall AP view pelvis and 2 views of left hip are obtained Pelvic ring is intact. The obturator rings are intact. Patient's had bilateral hip arthroplasties. There is no evidence of periprosthetic fracture or loosening. IMPRESSION: Postoperative changes from bilateral hip arthroplasties. No acute abnormality seen. Dictated by: Dictated on workstation # [id number]
== END 2022-10-02 06:00 | disposition home or self-care (01) ==
LOC: EDUNIT# 03:23 → ER 03:24
DX: G89.29 Other chronic pain (principal); M54.2 Cervicalgia; M25.552 Pain in left hip; J43.9 Emphysema, unspecified; Z99.81 Dependence on supplemental oxygen; W06.XXXA Fall from bed, initial encounter; W22.8XXA Striking against or struck by other objects, initial encounter
CPT/HCPCS: 70450; 72125

== ENCOUNTER 2022-12-17 10:57 | Emergency (ER) | payer MEDICARE, MEDICAID ==
[~2022-12-17] VITALS: Ht 161 cm; Wt 56.0 kg
[~2022-12-17 10:57] MED LIST changes: +FAMO-356 PO; -FAMO20TA3 PO; -GABA-490 PO; +GABA-491 PO; +ROPI2TAB52 PO; -ROPI2TAB6 PO; -ROSU20TA32 PO; +ROSU20TA73 PO
[2022-12-17] MEDS ORDERED: NS IV 1000 ML 1,000 ML IV STA (11:11)
--- NOTE | 2022-12-17 11:18 | ED General ---
General Chief Complaint: Cardiac/General Problems Stated Complaint: LOW BLOOD PRESSURE Nursing Triage Note: PT STATES LOW BP FOR ABOUT A MONTH, DIARRHEA THE SAME AMOUNT OF TIME. 85/41 AT HOME. 116/75 AT TRIAGE. STATES LOOSING 40 LBS IN THE LAST MONTH Source of Information: Patient Exam Limitations: No Limitations History of Present Illness Date Seen by Provider: Dec 17, 2022 Time Seen by Provider: 11:14 Initial Comments Patient is a 67-year-old female with a history of coronary artery disease, COPD, bladder cancer in 2019 with indwelling catheter, elbow cancer left side, rheumatoid arthritis, osteoarthritis, IBS who presents ED for low blood pressure. She states her blood pressure was 85/41 at home today. She states she has been having diarrhea over the past month or so. Several bouts daily without any blood or mucus. History of diarrhea with her IBS. No recent antibiotic use. She reports nausea without vomiting. Does have a history of hiatal hernia and states she cannot vomit. She reports some generalized abdominal discomfort. She is urinating in her indwelling catheter bag. She denies any fever, chills, body aches. She reports a wet productive cough without any chest pain shortness of breath, syncope. She denies of any blood pressure medication. She also reports diffuse joint pain. Patient was on hy drocodone in the past but not currently on any medication. Denies of any swollen, red or warm joints. Patient has been taking lomotil in the past with some improvement. Currently taking Imodium without much improvement Allergies and Home Medications Allergies Coded Allergies: bacitracin (Verified Allergy, Intermediate, "I BREAK OUT IN A RASH ALL OVER.", 04/02/22) neomycin (Verified Allergy, Intermediate, "I BREAK OUT IN A RASH ALL OVER.", 04/02/22) polymyxin B (Verified Allergy, Intermediate, "I BREAK OUT IN A RASH ALL OVER.", 04/02/22) ibuprofen (Verified Allergy, Mild, RASH, 04/02/22) naproxen (Verified Allergy, Mild, RASH, 04/02/22) strawberry (Verified Allergy, Mild, 04/02/22) sulfamethoxazole (Verified Allergy, Unknown, 04/02/22) tramadol (Verified Allergy, Unknown, Has rec lortab & oxycodone in the past, 06/21/22) trimethoprim (Verified Allergy, Unknown, 04/02/22) Patient Home Medication List Home Medication List Reviewed: Yes Albuterol Sulfate (Proventil Hfa) 90 Mcg Hfa.aer.ad, 2 PUFF INH Q6H PRN for WHEEZING, (Reported) Entered as Reported by: MICHAEL GARZA on 03/19/22 0857 Alosetron HCl (Alosetron HCl) 0.5 Mg Tablet, 0.5 MG PO BID, (Reported) Entered as Reported by: MICHAEL GARZA on 03/19/22 0857 Apixaban (Eliquis) 5 Mg Tablet, 5 MG PO BID, (Reported) Entered as Reported by: GRETA MANCILLA on 07/11/17 1530 Benzonatate (Tessalon Perles) 100 Mg Capsule, 200 MG PO Q8H PRN for cough Prescribed by: GINA GUTIERREZ on 02/10/22 1611 Buspirone HCl (Buspirone HCl) 15 Mg Tablet, 15 MG PO TID, (Reported) Entered as Reported by: SERENITY COPELAND on 11/08/21 1216 Clonazepam (Clonazepam) 1 Mg Tablet, 1 MG PO BID, (Reported) Entered as Reported by: JAMIE GOVEA on 04/20/19 1024 Cyclobenzaprine HCl (Cyclobenzaprine HCl) 10 Mg Tablet, 10 MG PO TID PRN for SPASMS, (Reported) Entered as Reported by: MICHAEL GARZA on 03/19/22 0857 Dapagliflozin Propanediol (Farxiga) 5 Mg Tablet, 5 MG PO DAILY, (Reported) Entered as Reported by: GRETA MANCILLA on 05/21/18 1455 Dicyclomine HCl (Dicyclomine HCl) 20 Mg Tablet, 20 MG PO QID Prescribed by: ANTWAN PINEDA on 12/17/22 1241 Diltiazem HCl (Diltiazem HCl) 90 Mg Tablet, 90 MG PO TID, (Reported) Entered as Reported by: SERENITY COPELAND on 11/08/21 1132 Eluxadoline (Viberzi) 75 Mg Tablet, 75 MG PO BID, (Reported) Entered as Reported by: MICHAEL GARZA on 03/19/22 0857 Epinephrine (Epipen) 0.3 Mg/0.3 Ml Auto.injct, 0.3 MG IJ PRN, (Reported) Entered as Reported by: MICHAEL GARZA on 03/19/22 0857 Erenumab-Aooe (Aimovig Autoinjector) 70 Mg/1 Ml Auto.injct, 70 MG MONTHLY, (Reported) Entered as Reported by: SERENITY COPELAND on 12/30/19 1728 Ertapenem Sodium (Ertapenem) 1 Gram Vial, 1 GM IM DAILY Prescribed by: BAYLEE WHITE on 04/03/22 1029 Fludrocortisone Acetate (Fludrocortisone Acetate) 0.1 Mg Tab, 0.1 MG PO EVERY OTHER DAY, (Reported) Entered as Reported by: SERENITY COPELAND on 11/08/21 1132 Fluticasone Furoate (Flonase Sensimist) 27.5 Mcg/Actuation [place].susp, 2 SPRAYS NSEACH DAILY, (Reported) Entered as Reported by: MICHAEL GARZA on 03/19/22 0857 Gabapentin (Neurontin) 300 Mg Capsule, 900 MG PO TID, (Reported) Entered as Reported by: RADHA KATHLEEN on 04/03/22 1101 Hydrocodone/Acetaminophen (Hydrocodone-Acetamin 5-325 mg) 5 Mg-325 Mg Tablet, 1 TAB PO Q4H PRN for PAIN-MODERATE (5-7) Prescribed by: Angela Mcgovern on 07/31/22 1529 Hydrocodone/Acetaminophen (Hydrocodone-Acetamin 5-325 mg) 5 Mg-325 Mg Tablet, 1 TAB PO Q6H PRN for PAIN-MODERATE (5-7) Prescribed by: GINA GUTIERREZ on 08/17/22 1222 Hydrocodone/Acetaminophen (Hydrocodone-Acetamin 5-325 mg) 5 Mg-325 Mg Tablet, 1 TAB PO Q4H PRN for PAIN-MODERATE (5-7) Prescribed by: Angela Mcgovern on 09/08/22 1306 Hydrocodone/Acetaminophen (Hydrocodone-Acetamin 5-325 mg) 5 Mg-325 Mg Tablet, 1 TAB PO Q4H PRN for PAIN-MODERATE (5-7) Prescribed by: ANTWAN PINEDA on 12/17/22 1242 Ipratropium/Albuterol Sulfate (Iprat-Albut 0.5-3(2.5) mg/3 ml) 0.5 Mg-3 Mg (2.5 Mg Base)/3 Ml Ampul.neb, 3 ML IH Q6H PRN for SHORTNESS OF BREATH, (Reported) Entered as Reported by: MICHAEL GARZA on 03/19/22 0857 Lamotrigine (Lamotrigine) 25 Mg Tablet, 25 MG PO BID, (Reported) Entered as Reported by: SERENITY COPELAND on 11/08/21 1132 Latanoprost (Xalatan) 0.005 % Drops, 1 DROP OU HS, (Reported) Entered as Reported by: SERENITY COPELAND on 11/08/21 1132 Levocetirizine Dihydrochloride (Levocetirizine Dihydrochloride) 5 Mg Tablet, 5 MG PO DAILY, (Reported) Entered as Reported by: URSZULA BELL on 05/14/18 0828 Lidocaine (Lidocaine) 4 % Adh..patch, 1 EACH TP DAILY, (Reported) Entered as Reported by: MICHAEL GARZA on 03/19/22 0857 Lipase/Protease/Amylase (Zenpep Dr 40,000 Units Capsule) 40-126-168 Capsule.dr, 2 EACH PO TID, (Reported) Entered as Reported by: MICHAEL GARZA on 03/19/22 0857 Meclizine HCl (Meclizine HCl) 25 Mg Tablet, 25 MG PO Q8H PRN for DIZZINESS, (Reported) Entered as Reported by: JESSICA GILMORE on 02/28/21 1353 Memantine HCl (Memantine HCl) 10 Mg Tablet, 10 MG PO DAILY, (Reported) Entered as Reported by: BIENVENIDO FARRELL on 07/28/15 1444 Montelukast Sodium (Montelukast Sodium) 10 Mg Tablet, 10 MG PO HS, (Reported) Entered as Reported by: SERENITY COPELAND on 11/08/21 1216 Naloxone HCl (Narcan) 4 Mg/Actuation [place], 4 MG NS PRN, (Reported) Entered as Reported by: MICHAEL GARZA on 03/19/22 0857 Nicotine (Nicotrol) 10 Mg Cartridge, INHALER NS UD PRN for SMOKING CESSATION, (Reported) Entered as Reported by: SERENITY COPELAND on 11/08/21 1132 Nitroglycerin (Nitroglycerin) 0.4 Mg Tab.subl, 0.4 MG SL UD PRN for CHEST PAIN (ANGINA), (Reported) Entered as Reported by: SERENITY COPELAND on 11/08/21 113 Oxycodone HCl (Roxicodone) 15 Mg Tablet, 15 MG PO Q6H PRN for PAIN-SEVERE (8-10) Prescribed by: BAYLEE WHITE on 06/21/22 1200 Pantoprazole Sodium (Pantoprazole Sodium) 40 Mg Tablet.dr, 40 MG PO DAILY, (Reported) Entered as Reported by: MICHAEL GARZA on 03/19/22 08 Primidone (Mysoline) 250 Mg Tablet, 250 MG PO BID, (Reported) Entered as Reported by: MICHAEL GARZA on 03/19/22 08 Ropinirole HCl (Ropinirole HCl) 2 Mg Tablet, 4 MG PO HS, (Reported) Entered as Reported by: SERENITY COPELAND on 12/30/19 1728 Rosuvastatin Calcium (Rosuvastatin Calcium) 20 Mg Tablet, 20 MG PO DAILY, (Reported) Entered as Reported by: SERENITY COPELAND on 11/08/21 113 Suvorexant (Belsomra) 10 Mg Tablet, 10 MG PO HS, (Reported) Entered as Reported by: MICHAEL GARZA on 03/19/2257 Tiotropium Br/Olodaterol HCl (Stiolto Respimat Inhal [place]) 2.5 Mcg-2.5 Mcg/Actuation Mist.inhal, 4 GM IH DAILY, (Reported) Entered as Reported by: RADHA KATHLEEN on 04/03/22 1106 Trazodone HCl (Trazodone HCl) 100 Mg Tablet, 100 MG PO HS, (Reported) Entered as Reported by: MICHAEL GARZA on 03/19/22 0857 Review of Systems Review of Systems Constitutional: No chills, No diaphoresis EENTM: No ear pain, No blurred vision, No double vision Respiratory: cough; No dyspnea on exertion, No short of breath Cardiovascular: No chest pain Gastrointestinal: abdominal pain, diarrhea, nausea; No vomiting Genitourinary: No decreased output, No discharge, No frequency Musculoskeletal: No back pain; joint pain Psychiatric/Neurological: Denies Anxiety, Denies Depressed All Other Systems Reviewed Negative Unless Noted: Yes Past Yhlscyv-Dvmitk-Hkldyf Hx Patient Social History Tobacco Use?: Yes Tobacco type used: Cigarettes Smoking Status: Current Everyday Smoker Substance use?: No Alcohol Use?: No Immunizations Up To Date Tetanus Booster (TDap): Unknown PED Vaccines UTD: No First/Initial COVID19 Vaccinat: 2021 Second COVID19 Vaccination [place]: 2021 Third COVID19 Vaccination Date: 2021 Seasonal Allergies Seasonal Allergies: Yes Past Medical History Surgery/Hospitalization HX: PMH;HF, COPD, AND STROKE HX., PALPATATIONS SURGERY; urostomy FROM BLADDER CA, TUBAL, AND EXPLORATORY, HEART CATH(03/28), BILATERAL HIP AND KNEE REPLACEMENTS, FOUR NECK SURGERIES, CA ON LT ELBOW Surgeries: Yes (NECK, HIATAL HERNIA, CARDIAC ABLATION, BILAT ELBOW, BILAT CTR, BLADDER SLIN) Cystectomy, Gallbladder, Orthopedic, Pancreatic Respiratory: Yes (HOME ) COPD, Emphysema Currently Using CPAP: No Currently Using BIPAP: No Cardiac: Yes (CARDIAC ABLATION 2015) High Cholesterol, Irregular Heartbeat, Palpitations Neurological: Yes (PARESTHESIAS OF BILAT LOWER EXT DUE TO FORAMINAL STENOSIS) Seizure Disorder, TIA 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 Disorders: No 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 Disorders: Denies IT COORDINATOR History: Menopausal Sexually Transmitted Disease: No HIV/AIDS: No Genitourinary: Yes UTI-Chronic Gastrointestinal: Yes (FREQ DIARRHEA, DYSPHAGIA) Gastroesophageal Reflux, Chronic Diarrhea Musculoskeletal: Yes (CERVICAL SUGERY) Arthritis, Back Injury Endocrine: Yes (DIET CONTROLLED NIDDM--NO LONGER ON MEDICATIONS; THYROID NODULES) Diabetes, Non-Insulin dep HEENT: Yes (LEFT EAR HEARING IMPAIRMENT) Cataract Loss of Vision: Denies Hearing Impairment: Hard of Hearing Cancer: Yes Bladder Did You Recieve Any Treatments: Yes What Type of Treatment Did You: Surgical Intervention Psychosocial: No Anxiety, Depression Integumentary: No Psoriasis Blood Disorders: No Adverse Reaction/Blood Tranf: No Family Medical History Cardiovascular disease G8 BROTHER (TRIPLE BYPASS) Diabetes mellitus 19 MOTHER FH: COPD (chronic obstructive pulmonary disease) 19 MOTHER FH: breast cancer 19 MOTHER FHx: brain cancer 19 FATHER No Pertinent Family Hx Physical Exam Vital Signs Vital Signs - First Documented 12/17/22 11:03 Temp 36.5 Pulse 83 Resp 20 B/P (MAP) 116/75 (89) Pulse Ox 98 O2 Delivery Room Air Capillary Refill : Less Than 3 Seconds Height, Weight, BMI Height: 5'4.00" Weight: 165lbs. 0.0oz. 72.803445gm; 21.00 BMI Method:Stated General Appearance: No Apparent Distress, WD/WN Eyes: Bilateral Eye Normal Inspection, Bilateral Eye PERRL, Bilateral Eye Abnormal EOM HEENT: PERRL/EOMI, TMs Normal, Normal ENT Inspection, Pharynx Normal Neck: Full Range of Motion, Normal Inspection, Non Tender, Supple Respiratory: Chest Non Tender, Lungs Clear, Normal Breath Sounds, No Accessory Muscle Use, No Respiratory Distress Cardiovascular: Regular Rate, Rhythm, No Edema, No Gallop, No JVD, No Murmur Gastrointestinal: Normal Bowel Sounds, No Organomegaly, No Pulsatile Mass, Soft, Tenderness (Generalized tenderness) Back: Normal Inspection, No CVA Tenderness Extremity: Normal Capillary Refill, Normal Inspection Neurologic/Psychiatric: Alert, Oriented x3, No Motor/Sensory Deficits, Normal Mood/Affect, supervisor type photography II-XII Norm as Tested Skin: Normal Color, Warm/Dry Progress/Results/Core Measures Suspected Sepsis SIRS Temperature: Pulse: 83 Respiratory Rate: 20 Laboratory Tests 12/17/22 11:35: White Blood Count 3.4L Blood Pressure 116 /75 Mean: 89 Laboratory Tests 12/17/22 11:35: Creatinine 0.64, Platelet Count 165, Total Bilirubin 0.2 Results/Orders Lab Results Laboratory Tests Test 12/17/22 11:35 12/17/22 11:53 12/17/22 11:57 Range/Units White Blood Count 3.4 L 4.3-11.0 10^3/uL Red Blood Count 4.10 3.80-5.11 10^6/uL Hemoglobin 11.8 11.5-16.0 g/dL Hematocrit 37 35-52 % Mean Corpuscular Volume 91 80-99 fL Mean Corpuscular Hemoglobin 29 25-34 pg Mean Corpuscular Hemoglobin Concent 32 32-36 g/dL Red Cell Distribution Width 13.5 10.0-14.5 % Platelet Count 165 130-400 10^3/uL Mean Platelet Volume 10.8 9.0-12.2 fL Immature Granulocyte % (Auto) 0 % Neutrophils (%) (Auto) 46 42-75 % Lymphocytes (%) (Auto) 35 12-44 % Monocytes (%) (Auto) 16 H 0-12 % Eosinophils (%) (Auto) 2 0-10 % Basophils (%) (Auto) 1 0-10 % Neutrophils # (Auto) 1.6 L 1.8-7.8 10^3/uL Lymphocytes # (Auto) 1.2 1.0-4.0 10^3/uL Monocytes # (Auto) 0.6 0.0-1.0 10^3/uL Eosinophils # (Auto) 0.1 0.0-0.3 10^3/uL Basophils # (Auto) 0.0 0.0-0.1 10^3/uL Immature Granulocyte # (Auto) 0.0 0.0-0.1 10^3/uL Sodium Level 139 135-145 MMOL/L Potassium Level 4.1 3.6-5.0 MMOL/L Chloride Level 108 H 98-107 MMOL/L Carbon Dioxide Level 25 21-32 MMOL/L Anion Gap 6 5-14 MMOL/L Blood Urea Nitrogen 14 7-18 MG/DL Creatinine 0.64 0.60-1.30 MG/DL Estimat Glomerular Filtration Rate 96 BUN/Creatinine Ratio 22 Glucose Level 106 H 70-105 MG/DL Calcium Level 9.1 8.5-10.1 MG/DL Corrected Calcium 9.3 8.5-10.1 MG/DL Magnesium Level 2.0 1.6-2.4 MG/DL Total Bilirubin 0.2 0.1-1.0 MG/DL Aspartate Amino Transf (AST/SGOT) 20 5-34 U/L Alanine Aminotransferase (ALT/SGPT) 15 0-55 U/L Alkaline Phosphatase 86 40-136 U/L Total Protein 6.2 L 6.4-8.2 GM/DL Albumin 3.8 3.2-4.5 GM/DL Lipase 223 H 8-78 U/L Urine Color YELLOW Urine Clarity CLEAR Urine pH 7.0 5-9 Urine Specific [place] 1.015 L 1.016-1.022 Urine Protein NEGATIVE NEGATIVE Urine Glucose (UA) 2+ H NEGATIVE Urine Ketones NEGATIVE NEGATIVE Urine Nitrite POSITIVE H NEGATIVE Urine Bilirubin NEGATIVE NEGATIVE Urine Urobilinogen 0.2 < = 1.0 MG/DL Urine Leukocyte Esterase 1+ H NEGATIVE Urine RBC (Auto) TRACE H NEGATIVE Urine RBC RARE /HPF Urine WBC 2-5 /HPF Urine Crystals NONE /LPF Urine Bacteria LARGE H /HPF Urine Casts NONE /LPF Urine Mucus NEGATIVE /LPF Urine Culture Indicated YES Influenza Type A (RT-PCR) Not Detected Not Detecte Influenza Type B (RT-PCR) Not Detected Not Detecte SARS-CoV-2 RNA (RT-PCR) Not Detected Not Detecte My Orders Orders - DB PACK PA Cbc With Automated Diff (12/17/22 11:11) Comprehensive Metabolic Panel (12/17/22 11:11) Lipase (12/17/22 11:11) Magnesium (12/17/22 11:11) Urinalysis (12/17/22 11:11) Covid 19 Inhouse Test (12/17/22 11:11) Influenza A And B By Pcr (12/17/22 11:11) Chest 1 View, Ap/Pa Only (12/17/22 11:11) Ns Iv 1000 Ml (Ns Iv 1000 Ml) (12/17/22 11:11) Ondansetron Injection (Ondansetron Inj (12/17/22 12:00) Ondansetron Injection (Ondansetron Inj (12/17/22 11:51) Urine Culture (12/17/22 11:53) Dicyclomine Injection (Dicyclomine Injec (12/17/22 12:38) Medications Given in ED Current Medications Medications Dose Ordered Sig/[place] Route Start Time Stop Time Status Last Admin Dose Admin Ondansetron HCl 4 mg ONCE ONCE IVP 12/17/22 12:00 12/17/22 12:01 DC 12/17/22 11:52 4 MG Vital Signs/I&O 12/17/22 11:03 Temp 36.5 Pulse 83 Resp 20 B/P (MAP) 116/75 (89) Pulse Ox 98 O2 Delivery Room Air Capillary Refill : Less Than 3 Seconds Blood Pressure Mean: 89 Departure Communication (PCP) Reviewed previous ER visits, H&P, lab testing. History of IBS, COPD who presents ED for low blood pressure readings at home with diarrhea for the past month. She states she has a history of diarrhea secondary to IBS. She has been on medication Lomotil and Imodium in the past with some improvement. Currently taking Imodium. She reports several bouts of diarrhea without any blood or mucus. Nausea without vomiting. Generalized abdominal discomfort. No chest pain, shortness of breath. Mild productive cough. Denies of any body aches, chills or weakness. Blood pressure 84 systolic at home. On arrival blood pressure 116/75. She is not tachycardic or febrile. Moist mucous membranes. She does have indwelling catheter. Generalized lab work with urinalysis and chest x-ray with COVID influenza was ordered. CBC showed white blood count 3.4 with normal hemoglobin and platelets. Chemistry grossly unremarkable besides a lipase of 233. She does have a history of pancreatitis. History of pancreatic surgery. She has no epigastric pain. Nonspecific finding. May have mild pancreatitis. She did initially have some disc Fuhs tenderness. No guarding or rebound. Did receive Bentyl with improvement abdominal cramping. She did receive a liter of fluid with continue improvement of her blood pressure. She was not orthostatic hypotensive. Urinalysis positive for nitrates likely more contamination. Frequent history of urinary tract infection which resulted in altered mental status. Will discharge with Keflex prophylactically. She does report diffuse joint pain. History of chronic joint pain. Has seen a pain specialist in the past. She is currently on anticoagulants which she cannot take NSAIDs. No improvement with Tylenol. Has been hydrocodone in the past but states that they took her off her medication. She has been doing much better but until the past week or so pain has increased. No specific injury. Denies any joint swelling or redness. Exam of the joints with normal range of motion. There is no evidence of erythema or swelling suggesting active reactive versus septic arthritis. Will discharge with few days with hydrocodone. Imaging was held of the abdomen. No evidence of surgical abdomen. Reassessed the abdomen soft without any tenderness. She was not able to provide a stool sample. No an tibiotic use prior. Does not appear to be infectious. If further evaluation is needed stool cultures or CT scan would be warranted. Recommend follow-up your PCP in 2 to 3 days for reevaluation. Tolerating p.o. fluids. Recommend clear liquids for the next 2 or 3 days. Recheck with lab work with your PCP. She states she does follow a GI specialist for her diarrhea which she states is chronic. Impression Primary Impression: Diarrhea Additional Impression: Hypotension Disposition: 01 HOME, SELF-CARE Condition: Stable Departure-Patient Inst. Decision time for Depature: 12:40 Referrals: SHAYLEE SAENZ MD (PCP/Family) Primary Care Physician Patient Instructions: Low Blood Pressure Add. Discharge Instructions: Recommend follow-up with your primary care physician 2 to 3 days for reevaluation. If any worsening symptoms return back to ED All discharge instructions reviewed with patient and/or family. Voiced understanding. Scripts Hydrocodone/Acetaminophen (Hydrocodone-Acetamin 5-325 mg) 5 Mg-325 Mg Tablet 1 TAB PO Q4H PRN for PAIN-MODERATE (5-7), #8 TAB Prov: DB PACK 12/17/22 Dicyclomine HCl (Dicyclomine HCl) 20 Mg Tablet 20 MG PO QID for Abdominal Pain, #20 TAB Prov: DB PACK 12/17/22 DB PACK Dec 17, 2022 11:17
--- NOTE | 2022-12-17 11:47 | Diagnostic Imaging Report ---
INDICATION: Cough. COMPARISON: 06/20/2022. FINDINGS: Lungs clear. No failure, effusion or pneumothorax. IMPRESSION: No acute appearing abnormality. Dictated by: Dictated on workstation # [id number]
[2022-12-17] MEDS ORDERED: ONDANSETRON INJECTION 4 MG/2 ML (SDV) ONE (11:51)
[2022-12-17 11:53] LABS: BASOPHILS % (AUTO) 1 % (0-10); EOSINOPHILS # (AUTO) 0.1 10^3/uL (0.0-0.3); EOSINOPHILS % (AUTO) 2 % (0-10); HEMATOCRIT 37 % (35-52); HEMOGLOBIN 11.8 g/dL (11.5-16.0); LYMPHOCYTES # (AUTO) 1.2 10^3/uL (1.0-4.0); LYMPHOCYTES % (AUTO) 35 % (12-44); MEAN CORPUSCULAR HEMOGLOBIN 29 pg (25-34); MEAN CORPUSCULAR HGB CONC 32 g/dL (32-36); MEAN CORPUSCULAR VOLUME 91 fL (80-99); MEAN PLATELET VOLUME 10.8 fL (9.0-12.2); MONOCYTES # (AUTO) 0.6 10^3/uL (0.0-1.0); MONOCYTES % (AUTO) 16 % (0-12); NEUTROPHILS # (AUTO) 1.6 10^3/uL (1.8-7.8); NEUTROPHILS % (AUTO) 46 % (42-75); PLATELET COUNT 165 10^3/uL (130-400); WHITE BLOOD COUNT 3.4 10^3/uL (4.3-11.0)
[2022-12-17] MEDS ORDERED: ONDANSETRON INJECTION 4 MG/2 ML (SDV) IVP ONE (12:00)
[2022-12-17 12:11] LABS: ALBUMIN 3.8 GM/DL (3.2-4.5); BILIRUBIN,TOTAL 0.2 MG/DL (0.1-1.0); CALCIUM 9.1 MG/DL (8.5-10.1); CREATININE SERUM 0.64 MG/DL (0.60-1.30); POTASSIUM 4.1 MMOL/L (3.6-5.0); TOTAL PROTEIN 6.2 GM/DL (6.4-8.2)
[2022-12-17 12:14] LABS: CLARITY,URINE CLEAR; COLOR,URINE YELLOW; GLUCOSE, URINE (UA) 2+ (NEGATIVE); KETONES,URINE NEGATIVE (NEGATIVE); NITRITE,URINE POSITIVE (NEGATIVE); PROTEIN,URINE NEGATIVE (NEGATIVE)
[2022-12-17 12:15] LABS: BACTERIA,URINE LARGE /HPF; BILIRUBIN,URINE NEGATIVE (NEGATIVE); LEUKOCYTE ESTERASE ,URINE 1+ (NEGATIVE); RBC,URINE RARE /HPF
[2022-12-17] MEDS ORDERED: DICYCLOMINE 10 MG/ML 2 ML AMPULE IM STA (12:38)
[2022-12-17] MEDS ORDERED: DICY20TA PO (12:41)
[2022-12-17] MEDS ORDERED: ACHD5005 PO (12:42)
[2022-12-17 13:06] VITALS: BP 109/68
== END 2022-12-17 13:06 | disposition home or self-care (01) ==
LOC: EDUNIT# 10:57 → ER 10:59
DX: R19.7 Diarrhea, unspecified (principal); I95.9 Hypotension, unspecified; R10.84 Generalized abdominal pain; K58.9 Irritable bowel syndrome, unspecified; J43.9 Emphysema, unspecified; F17.210 Nicotine dependence, cigarettes, uncomplicated; Z99.81 Dependence on supplemental oxygen; Z79.899 Other long term (current) drug therapy; Z98.890 Other specified postprocedural states; Z79.01 Long term (current) use of anticoagulants; Z88.6 Allergy status to analgesic agent; Z20.822 Contact with and (suspected) exposure to COVID-19
CPT/HCPCS: 36415; 71045; 80053; 81000; 83690; 83735; 85025; 87077; 87088; 87636

== ENCOUNTER 2022-12-21 11:15 | Inpatient (IN) | payer MEDICARE, MEDICAID ==
[~2022-12-21] VITALS: Ht 162.6 cm; Wt 59.1 kg
[2022-12-21] MEDS ORDERED: NS IV 1000 ML 1,000 ML IV SCH (11:45)
[2022-12-21] MEDS ORDERED: MEROPENEM INJECTION 500 MG in NS (IVPB) 100 ML 100 ML IV ONE (11:45)
--- NOTE | 2022-12-21 11:52 | ED General ---
General Chief Complaint: General Problems/Pain Stated Complaint: LOW BLOOD PRESSURE Nursing Triage Note: PT AMB TO RM 6 PT CO OF WEAKNESS, RECENT UTI AND LOW B/P. PT WAS SEEN AT [facility] ED ON FRIDAY OF THIS WEEK. TAKEN BY EMS TO [facility] ED FROM DR BRISENO. PT CO OF CARRILLO 12/15 Source of Information: Patient Exam Limitations: No Limitations History of Present Illness Date Seen by Provider: Dec 21, 2022 Time Seen by Provider: 11:47 Initial Comments Patient is a 67-year-old female who presents ED with generalized weakness, recent UTI and low blood pressure. Patient with a history of IBS, COPD, coronary artery disease who presents to ED states not feeling well with increased tiredness and fatigue. She slept all day yesterday. She had some substernal chest pain yesterday without shortness of breath. She reports a daily cough. Patient states she is been having diarrhea over the past 2 months. History of IBS. No diarrhea over the past 2 days but states she has been taken Bentyl. Generalized abdominal discomfort cramping. She does have a urostomy. History of frequent urinary tract infections. Currently on Keflex for a UTI. She recently was seen at [facility]'s ER on the was discharged and follow-up with primary care physician. She states her blood pressure has been running in the 90s systolic at home. Not currently on blood pressure medication. She also reports a secondary headache. She denies of any unilateral muscle weakness or sensory changes. She had a recent urinary tract culture returned as E. coli, Morganella morganii,Enterococcus gallinarum. Patient denies vomiting, visual changes, unilateral muscle weakness or sensory changes, sore throat, ear pain Allergies and Home Medications Allergies Coded Allergies: bacitracin (Verified Allergy, Intermediate, "I BREAK OUT IN A RASH ALL OVER.", 04/02/22) neomycin (Verified Allergy, Intermediate, "I BREAK OUT IN A RASH ALL OVER.", 04/02/22) polymyxin B (Verified Allergy, Intermediate, "I BREAK OUT IN A RASH ALL OVER.", 04/02/22) ibuprofen (Verified Allergy, Mild, RASH, 04/02/22) naproxen (Verified Allergy, Mild, RASH, 04/02/22) strawberry (Verified Allergy, Mild, 04/02/22) sulfamethoxazole (Verified Allergy, Unknown, 04/02/22) tramadol (Verified Allergy, Unknown, Has rec lortab & oxycodone in the past, 06/21/22) trimethoprim (Verified Allergy, Unknown, 04/02/22) Patient Home Medication List Home Medication List Reviewed: Yes Albuterol Sulfate (Proventil Hfa) 90 Mcg Hfa.aer.ad, 2 PUFF INH Q6H PRN for WHEEZING, (Reported) Entered as Reported by: MICHAEL GARZA on 03/19/22 0857 Alosetron HCl (Alosetron HCl) 0.5 Mg Tablet, 0.5 MG PO BID, (Reported) Entered as Reported by: MICHAEL GARZA on 03/19/22 0857 Apixaban (Eliquis) 5 Mg Tablet, 5 MG PO BID, (Reported) Entered as Reported by: GRETA MANCILLA on 07/11/17 1530 Benzonatate (Tessalon Perles) 100 Mg Capsule, 200 MG PO Q8H PRN for cough Prescribed by: GINA GUTIERREZ on 02/10/22 1611 Buspirone HCl (Buspirone HCl) 15 Mg Tablet, 15 MG PO TID, (Reported) Entered as Reported by: SERENITY COPELAND on 11/08/21 1216 Clonazepam (Clonazepam) 1 Mg Tablet, 1 MG PO BID, (Reported) Entered as Reported by: JAMIE GOVEA on 04/20/19 1024 Cyclobenzaprine HCl (Cyclobenzaprine HCl) 10 Mg Tablet, 10 MG PO TID PRN for SPASMS, (Reported) Entered as Reported by: MICHAEL GARZA on 03/19/22 0857 Dapagliflozin Propanediol (Farxiga) 5 Mg Tablet, 5 MG PO DAILY, (Reported) Entered as Reported by: GRETA MANCILLA on 05/21/18 1455 Dicyclomine HCl (Dicyclomine HCl) 20 Mg Tablet, 20 MG PO QID Prescribed by: ANWTAN PINEDA on 12/17/22 1241 Diltiazem HCl (Diltiazem HCl) 90 Mg Tablet, 90 MG PO TID, (Reported) Entered as Reported by: SERENITY COPELAND on 11/08/21 1132 Eluxadoline (Viberzi) 75 Mg Tablet, 75 MG PO BID, (Reported) Entered as Reported by: MICHAEL GARZA on 03/19/22 0857 Epinephrine (Epipen) 0.3 Mg/0.3 Ml Auto.injct, 0.3 MG IJ PRN, (Reported) Entered as Reported by: MICHAEL GARZA on 03/19/22 0857 Erenumab-Aooe (Aimovig Autoinjector) 70 Mg/1 Ml Auto.injct, 70 MG MONTHLY, (Reported) Entered as Reported by: SERENITY COPELAND on 12/30/19 1728 Ertapenem Sodium (Ertapenem) 1 Gram Vial, 1 GM IM DAILY Prescribed by: BAYLEE WHITE on 04/03/22 1029 Fludrocortisone Acetate (Fludrocortisone Acetate) 0.1 Mg Tab, 0.1 MG PO EVERY OTHER DAY, (Reported) Entered as Reported by: SERENITY COPELAND on 11/08/21 1132 Fluticasone Furoate (Flonase Sensimist) 27.5 Mcg/Actuation [place].susp, 2 SPRAYS NSEACH DAILY, (Reported) Entered as Reported by: MICHAEL GARZA on 03/19/22 0857 Gabapentin (Neurontin) 300 Mg Capsule, 900 MG PO TID, (Reported) Entered as Reported by: RADHA KATHLEEN on 04/03/22 1101 Hydrocodone/Acetaminophen (Hydrocodone-Acetamin 5-325 mg) 5 Mg-325 Mg Tablet, 1 TAB PO Q4H PRN for PAIN-MODERATE (5-7) Prescribed by: Angela Mcgovern on 07/31/22 1529 Hydrocodone/Acetaminophen (Hydrocodone-Acetamin 5-325 mg) 5 Mg-325 Mg Tablet, 1 TAB PO Q6H PRN for PAIN-MODERATE (5-7) Prescribed by: GINA GUTIERREZ on 08/17/22 1222 Hydrocodone/Acetaminophen (Hydrocodone-Acetamin 5-325 mg) 5 Mg-325 Mg Tablet, 1 TAB PO Q4H PRN for PAIN-MODERATE (5-7) Prescribed by: Angela Mcgovern on 09/08/22 1306 Hydrocodone/Acetaminophen (Hydrocodone-Acetamin 5-325 mg) 5 Mg-325 Mg Tablet, 1 TAB PO Q4H PRN for PAIN-MODERATE (5-7) Prescribed by: ANTWAN PINEDA on 12/17/22 1242 Ipratropium/Albuterol Sulfate (Iprat-Albut 0.5-3(2.5) mg/3 ml) 0.5 Mg-3 Mg (2.5 Mg Base)/3 Ml Ampul.neb, 3 ML IH Q6H PRN for SHORTNESS OF BREATH, (Reported) Entered as Reported by: MICHAEL GARZA on 03/19/22 0857 Lamotrigine (Lamotrigine) 25 Mg Tablet, 25 MG PO BID, (Reported) Entered as Reported by: SERENITY COPELAND on 11/08/21 1132 Latanoprost (Xalatan) 0.005 % Drops, 1 DROP OU HS, (Reported) Entered as Reported by: SERENITY COPELAND on 11/08/21 1132 Levocetirizine Dihydrochloride (Levocetirizine Dihydrochloride) 5 Mg Tablet, 5 MG PO DAILY, (Reported) Entered as Reported by: URSZULA BELL on 05/14/18 0828 Lidocaine (Lidocaine) 4 % Adh..patch, 1 EACH TP DAILY, (Reported) Entered as Reported by: MICHAEL GARZA on 03/19/22 0857 Lipase/Protease/Amylase (Zenpep Dr 40,000 Units Capsule) 40-126-168 Capsule.dr, 2 EACH PO TID, (Reported) Entered as Reported by: MICHAEL GARZA on 03/19/22 0857 Meclizine HCl (Meclizine HCl) 25 Mg Tablet, 25 MG PO Q8H PRN for DIZZINESS, (Reported) Entered as Reported by: JESSICA GILMORE on 02/28/21 1353 Memantine HCl (Memantine HCl) 10 Mg Tablet, 10 MG PO DAILY, (Reported) Entered as Reported by: BIENVENIDO FARRELL on 07/28/15 1444 Montelukast Sodium (Montelukast Sodium) 10 Mg Tablet, 10 MG PO HS, (Reported) Entered as Reported by: SERENITY COPELAND on 11/08/21 1216 Naloxone HCl (Narcan) 4 Mg/Actuation [place], 4 MG NS PRN, (Reported) Entered as Reported by: MICHAEL GARZA on 12/13/22 0857 Nicotine (Nicotrol) 10 Mg Cartridge, INHALER NS UD PRN for SMOKING CESSATION, (Reported) Entered as Reported by: SERENITY COPELAND on 11/08/21 113 Nitroglycerin (Nitroglycerin) 0.4 Mg Tab.subl, 0.4 MG SL UD PRN for CHEST PAIN (ANGINA), (Reported) Entered as Reported by: SEREINTY COPELAND on 11/08/21 113 Oxycodone HCl (Roxicodone) 15 Mg Tablet, 15 MG PO Q6H PRN for PAIN-SEVERE (8-10) Prescribed by: BAYLEE WHITE on 06/21/22 1200 Pantoprazole Sodium (Pantoprazole Sodium) 40 Mg Tablet.dr, 40 MG PO DAILY, (Reported) Entered as Reported by: MICHAEL GARZA on 03/19/22856 Primidone (Mysoline) 250 Mg Tablet, 250 MG PO BID, (Reported) Entered as Reported by: MICHAEL GARZA on 03/19/22856 Ropinirole HCl (Ropinirole HCl) 2 Mg Tablet, 4 MG PO HS, (Reported) Entered as Reported by: SERENITY COPELAND on 12/30/19 1728 Rosuvastatin Calcium (Rosuvastatin Calcium) 20 Mg Tablet, 20 MG PO DAILY, (Reported) Entered as Reported by: SERENITY COPELAND on 11/08/21 113 Suvorexant (Belsomra) 10 Mg Tablet, 10 MG PO HS, (Reported) Entered as Reported by: MICHAEL GARZA on 03/19/22856 Tiotropium Br/Olodaterol HCl (Stiolto Respimat Inhal [place]) 2.5 Mcg-2.5 Mcg/Actuation Mist.inhal, 4 GM IH DAILY, (Reported) Entered as Reported by: RADHA KATHLEEN on 04/03/22 1106 Trazodone HCl (Trazodone HCl) 100 Mg Tablet, 100 MG PO HS, (Reported) Entered as Reported by: MICHAEL GARZA on 03/19/22856 Review of Systems Review of Systems Constitutional: chills; No fever; malaise, weakness EENTM: No ear pain, No blurred vision, No double vision Respiratory: cough; No short of breath Cardiovascular: chest pain Gastrointestinal: abdominal pain; No nausea, No vomiting Genitourinary: No decreased output, No discharge, No dysuria, No frequency Musculoskeletal: No back pain, No joint pain Skin: No change in color, No change in hair/nails All Other Systems Reviewed Negative Unless Noted: Yes Past Efabnra-Maxoit-Xmrazk Hx Patient Social History Tobacco Use?: Yes Tobacco type used: Cigarettes Smoking Status: Current Everyday Smoker Substance use?: No Alcohol Use?: No Pt feels they are or have been: No Immunizations Up To Date Tetanus Booster (TDap): Unknown PED Vaccines UTD: No First/Initial COVID19 Vaccinat: 2021 Second COVID19 Vaccination Hugo: 2021 Third COVID19 Vaccination Date: 2021 Seasonal Allergies Seasonal Allergies: Yes Past Medical History Surgery/Hospitalization HX: PMH;HF, COPD, AND STROKE HX., PALPATATIONS SURGERY; urostomy FROM BLADDER CA, TUBAL, AND EXPLORATORY, HEART CATH(03/28), BILATERAL HIP AND KNEE REPLACEMENTS, FOUR NECK SURGERIES, CA ON LT ELBOW Surgeries: Yes (NECK, HIATAL HERNIA, CARDIAC ABLATION, BILAT ELBOW, BILAT CTR, BLADDER SLIN) Cystectomy, Gallbladder, Orthopedic, Pancreatic Respiratory: Yes (HOME ) COPD, Emphysema Currently Using CPAP: No Currently Using BIPAP: No Cardiac: Yes (CARDIAC ABLATION 2015) High Cholesterol, Irregular Heartbeat, Palpitations Neurological: Yes (PARESTHESIAS OF BILAT LOWER EXT DUE TO FORAMINAL STENOSIS) Seizure Disorder, TIA 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 Disorders: No 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 Sexually Transmitted Disease: No HIV/AIDS: No Genitourinary: Yes UTI-Chronic Gastrointestinal: Yes (FREQ DIARRHEA, DYSPHAGIA) Gastroesophageal Reflux, Chronic Diarrhea Musculoskeletal: Yes (CERVICAL SUGERY) Arthritis, Back Injury Endocrine: Yes (DIET CONTROLLED NIDDM--NO LONGER ON MEDICATIONS; THYROID NODULES) Diabetes, Non-Insulin dep HEENT: Yes (LEFT EAR HEARING IMPAIRMENT) Cataract Loss of Vision: Denies Hearing Impairment: Hard of Hearing Cancer: Yes Bladder Did You Recieve Any Treatments: Yes What Type of Treatment Did You: Surgical Intervention Psychosocial: No Anxiety, Depression Integumentary: No Psoriasis Blood Disorders: No Adverse Reaction/Blood Tranf: No Family Medical History Cardiovascular disease G8 BROTHER (TRIPLE BYPASS) Diabetes mellitus 19 MOTHER FH: COPD (chronic obstructive pulmonary disease) 19 MOTHER FH: breast cancer 19 MOTHER FHx: brain cancer 19 FATHER No Pertinent Family Hx Physical Exam Vital Signs Vital Signs - First Documented 12/21/22 11:25 Temp 37.0 Pulse 74 Resp 17 B/P (MAP) 120/81 (94) Pulse Ox 93 O2 Delivery Nasal Cannula O2 Flow Rate 4.00 Capillary Refill : Less Than 3 Seconds Height, Weight, BMI Height: 5'4.00" Weight: 165lbs. 0.0oz. 72.253189cm; 21.00 BMI Method:Stated General Appearance: No Apparent Distress, WD/WN Eyes: Bilateral Eye Normal Inspection, Bilateral Eye PERRL, Bilateral Eye EOMI HEENT: PERRL/EOMI, TMs Normal, Normal ENT Inspection, Pharynx Normal Neck: Full Range of Motion, Normal Inspection, Non Tender, Supple Respiratory: Chest Non Tender, Normal Breath Sounds, No Accessory Muscle Use, Wheezing Cardiovascular: Regular Rate, Rhythm, No Edema, No Gallop, No JVD Gastrointestinal: Normal Bowel Sounds, No Organomegaly, No Pulsatile Mass, Non Tender Back: Normal Inspection, No CVA Tenderness Extremity: Normal Capillary Refill, Normal Inspection, Normal Range of Motion, Non Tender Neurologic/Psychiatric: Alert, Oriented x3, No Motor/Sensory Deficits, Normal Mood/Affect, 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 Norm as Tested Skin: Normal Color, Warm/Dry Focused Exam Lactate Level 12/21/22 11:42: Lactic Acid Level 1.73 Lactic Acid Level Laboratory Tests Test 12/21/22 11:42 Lactic Acid Level 1.73 MMOL/L (0.50-2.00) Progress/Results/Core Measures Suspected Sepsis SIRS Temperature: Pulse: 74 Respiratory Rate: 17 Laboratory Tests 12/21/22 11:42: White Blood Count 3.5L Blood Pressure 120 /81 Mean: 94 12/21/22 11:42: Lactic Acid Level 1.73 Laboratory Tests 12/21/22 11:42: Creatinine 0.59L, INR Comment 1.0, Platelet Count 105L, Total Bilirubin 0.3 Results/Orders Lab Results Laboratory Tests Test 12/21/22 11:42 12/21/22 12:38 Range/Units White Blood Count 3.5 L 4.3-11.0 10^3/uL Red Blood Count 4.46 3.80-5.11 10^6/uL Hemoglobin 12.6 11.5-16.0 g/dL Hematocrit 40 35-52 % Mean Corpuscular Volume 91 80-99 fL Mean Corpuscular Hemoglobin 28 25-34 pg Mean Corpuscular Hemoglobin Concent 31 L 32-36 g/dL Red Cell Distribution Width 13.5 10.0-14.5 % Platelet Count 105 L 130-400 10^3/uL Mean Platelet Volume 11.6 9.0-12.2 fL Immature Granulocyte % (Auto) 0 % Neutrophils (%) (Auto) 37 L 42-75 % Lymphocytes (%) (Auto) 53 H 12-44 % Monocytes (%) (Auto) 6 0-12 % Eosinophils (%) (Auto) 4 0-10 % Basophils (%) (Auto) 0 0-10 % Neutrophils # (Auto) 1.3 L 1.8-7.8 10^3/uL Lymphocytes # (Auto) 1.8 1.0-4.0 10^3/uL Monocytes # (Auto) 0.2 0.0-1.0 10^3/uL Eosinophils # (Auto) 0.1 0.0-0.3 10^3/uL Basophils # (Auto) 0.0 0.0-0.1 10^3/uL Immature Granulocyte # (Auto) 0.0 0.0-0.1 10^3/uL Percent Immature Platelet Fraction 5.1 0.0-7.6 % Prothrombin Time 13.6 12.2-14.7 SEC INR Comment 1.0 0.8-1.4 Activated Partial Thromboplast Time 41 H 24-35 SEC Sodium Level 138 135-145 MMOL/L Potassium Level 3.7 3.6-5.0 MMOL/L Chloride Level 104 98-107 MMOL/L Carbon Dioxide Level 23 21-32 MMOL/L Anion Gap 11 5-14 MMOL/L Blood Urea Nitrogen 13 7-18 MG/DL Creatinine 0.59 L 0.60-1.30 MG/DL Estimat Glomerular Filtration Rate 97 BUN/Creatinine Ratio 22 Glucose Level 134 H 70-105 MG/DL Lactic Acid Level 1.73 0.50-2.00 MMOL/L Calcium Level 8.1 L 8.5-10.1 MG/DL Corrected Calcium 8.4 L 8.5-10.1 MG/DL Total Bilirubin 0.3 0.1-1.0 MG/DL Aspartate Amino Transf (AST/SGOT) 305 H 5-34 U/L Alanine Aminotransferase (ALT/SGPT) 122 H 0-55 U/L Alkaline Phosphatase 225 H 40-136 U/L Troponin I < 0.028 <0.028 NG/ML C-Reactive Protein High Sensitivity 7.90 H 0.00-0.50 MG/DL Total Protein 6.5 6.4-8.2 GM/DL Albumin 3.6 3.2-4.5 GM/DL Influenza Type A (RT-PCR) Not Detected Not Detecte Influenza Type B (RT-PCR) Not Detected Not Detecte SARS-CoV-2 RNA (RT-PCR) Not Detected Not Detecte Urine Color YELLOW Urine Clarity TURBID Urine pH 6.5 5-9 Urine Specific [place] 1.010 L 1.016-1.022 Urine Protein NEGATIVE NEGATIVE Urine Glucose (UA) 3+ H NEGATIVE Urine Ketones NEGATIVE NEGATIVE Urine Nitrite POSITIVE H NEGATIVE Urine Bilirubin NEGATIVE NEGATIVE Urine Urobilinogen 0.2 < = 1.0 MG/DL Urine Leukocyte Esterase NEGATIVE NEGATIVE Urine RBC (Auto) TRACE H NEGATIVE Urine RBC 2-5 H /HPF Urine WBC 5-10 H /HPF Urine Squamous Epithelial Cells NONE /HPF Urine Crystals NONE /LPF Urine Bacteria TRACE /HPF Urine Casts NONE /LPF Urine Mucus NEGATIVE /LPF Urine Culture Indicated CULTURE PENDING My Orders Orders - DB PACK Cbc With Automated Diff (12/21/22 11:42) Comprehensive Metabolic Panel (12/21/22 11:42) Blood Culture (12/21/22 11:42) Sputum Culture (12/21/22 11:42) Urinalysis (12/21/22 11:42) Urine Culture (12/21/22 11:42) Protime With Inr (12/21/22 11:42) Partial Thromboplastin Time (12/21/22 11:42) Chest 1 View, Ap/Pa Only (12/21/22 11:42) Ed Iv/Invasive Line Start (12/21/22 11:42) Ekg Tracing (12/21/22 11:42) Troponin I [place] (12/21/22 11:42) Vital Signs Adult Sepsis Patie Q15M (12/21/22 11:42) O2 (12/21/22 11:42) Remove Rings In Anticipation O (12/21/22 11:42) Lactic Acid Analyzer (12/21/22 11:42) Influenza A And B By Pcr (12/21/22 11:42) Ns Iv 1000 Ml (Ns Iv 1000 Ml) (12/21/22 11:45) Meropenem Injection (Meropenem Injecti (12/21/22 11:45) Covid 19 Inhouse Test (12/21/22 11:42) Hs C Reactive Protein (12/21/22 11:44) Ct Abdomen/Pelvis W (12/21/22 11:45) Iohexol Injection (Omnipaque 350 Mg/Ml 1 (12/21/22 12:00) Received Contrast (Hold Metformin- Contr (12/21/22 12:00) Ns (Ivpb) 100 Ml (Sodium Chloride 0.9% 1 (12/21/22 12:00) Ed Admission (Communication) (12/21/22 14:03) Morphine Injection (Morphine Injection (12/21/22 14:45) Ondansetron Injection (Ondansetron Inj (12/21/22 14:45) Medications Given in ED Current Medications Medications Dose Ordered Sig/[place] Route Start Time Stop Time Status Last Admin Dose Admin Iohexol 75 ml ONCE ONCE IV 12/21/22 12:00 12/21/22 12:09 DC 12/21/22 12:29 66 ML Meropenem 500 mg/ Sodium Chloride 100 ml @ 200 mls/hr ONCE ONCE IV 12/21/22 11:45 12/21/22 12:14 DC 12/21/22 12:01 200 MLS/HR Sodium Chloride 100 ml ONCE ONCE IV 12/21/22 12:00 12/21/22 12:09 DC 12/21/22 12:29 100 ML Vital Signs/I&O 12/21/22 12/21/22 12/21/22 11:25 11:25 14:28 Temp 37.0 Pulse 74 65 Resp 17 16 B/P (MAP) 120/81 (94) 122/64 Pulse Ox 93 93 98 O2 Delivery Nasal Cannula Nasal Cannula Nasal Cannula O2 Flow Rate 4.00 4.00 4.00 Capillary Refill : Less Than 3 Seconds Blood Pressure Mean: 94 ECG Comment Sinus rhythm with occasional ventricular premature complexes, 76 bpm, QRS duration 87 MS, QTc 394 MS Departure Communication (PCP) Reviewed previous ER visits, H&P, lab testing. History of frequent urinary tract infections. Currently on Keflex. Patient is a 67-year-old female with a history of COPD, coronary artery disease, IBS, urostomy secondary to bladder cancer from 2020. Patient with diarrhea for the past 2 months. Diarrhea improved over the past 2 days. History of IBS. Has been taking Bentyl with improvement. No vomiting. Fatigue and weakness. She states she has lost weight over the past month. She was seen here on the concern for hypotension with secondary diarrhea. Her blood pressure improved after fluids. She was diagnosed with UTI discharged with Keflex. She was not orthostatic hypotensive. she went to [facility] on the secondary low blood pressure and was diagnosed with UTI and currently taking Keflex. Continue feeling fatigued and weak. Low blood pressure today. Not currently on blood pressure medication. She had some chest pain yesterday. She is afebrile but does have a blood pressure 102/53. Septic work-up was initiated. CBC showed a white blood count of 3.5 stable from last lab draw on the , platelets 105.. Chemistry showed AST of 305, ALT 122, alk phos 225 which appear new. CRP of 7.90. Normal lactic acid. Urine culture from the showed 3 different types of bacteria. Potential colonization however did switch to meropenem susceptible to 2 of the bacteria E. coli and Morganella morganii. Patient was started on a liter of fluid. EKG and troponin was ordered which EKG did not show any evidence of ST elevation or depression. Troponin negative. Urinalysis was obtained which did show positive nitrites. Chest x-ray was ordered which did not show any evidence of pneumonia. Atelectasis noted. She does have some generalized abdominal tenderness. Denied of any prior antibiotic before the 12. CT abdomen pelvis showed a fluid collection in the pelvis which has some internal air measuring about 8 x 4.4 cm in size. Discussed this with Dr. Obando general surgeon. He states the abscess is well circumferential and no s urrounding swelling. Since normal white blood count he states he would not drain at this time. Consulted Dr. Aguilera hospitalist who recommend contacting urology as a potential source. Talk to Dr. Ludwig urology for [facility]. Patient follows urology Dr. Kirk Fischer who performed the surgery in 2020. Dr. Ludwig does not believe this is secondary to her urinary tract . Recommend empirically antibiotics at this time and interventional imaging to check change. Patient was accepted to the ICU. Blood pressure staying about the same. She is not hypoxic. COVID influenza was negative. Impression Primary Impression: Abdominal abscess Additional Impressions: Hypotension UTI (urinary tract infection) Disposition: ADMITTED INPATIENT Condition: Stable Admissions Decision to Admit Reason: Admit from ER (General) Decision to Admit/Date: Dec 21, 2022 Time/Decision to Admit Time: 13:44 Departure-Patient Inst. Referrals: SHAYLEE SAENZ MD (PCP/Family) Primary Care Physician DB PACK Dec 21, 2022 11:52
[2022-12-21 11:53] LABS: BASOPHILS % (AUTO) 0 % (0-10); EOSINOPHILS # (AUTO) 0.1 10^3/uL (0.0-0.3); HEMATOCRIT 40 % (35-52)
[2022-12-21 11:55] LABS: EOSINOPHILS % (AUTO) 4 % (0-10); HEMOGLOBIN 12.6 g/dL (11.5-16.0); LYMPHOCYTES # (AUTO) 1.8 10^3/uL (1.0-4.0); LYMPHOCYTES % (AUTO) 53 % (12-44); MEAN CORPUSCULAR HEMOGLOBIN 28 pg (25-34); MEAN CORPUSCULAR HGB CONC 31 g/dL (32-36); MEAN CORPUSCULAR VOLUME 91 fL (80-99); MEAN PLATELET VOLUME 11.6 fL (9.0-12.2); MONOCYTES # (AUTO) 0.2 10^3/uL (0.0-1.0); MONOCYTES % (AUTO) 6 % (0-12); NEUTROPHILS # (AUTO) 1.3 10^3/uL (1.8-7.8); NEUTROPHILS % (AUTO) 37 % (42-75); WHITE BLOOD COUNT 3.5 10^3/uL (4.3-11.0)
[2022-12-21 11:56] LABS: PLATELET COUNT 105 10^3/uL (130-400)
[2022-12-21] MEDS ORDERED: IOHEXOL 350 MG/ML 100 ML (OMNIPAQUE 350) VIAL IV ONE (12:00)
[2022-12-21] MEDS ORDERED: NS 100 ML (IVPB) BAG IV ONE (12:00)
[2022-12-21] MEDS ORDERED: HOLD METFORMIN - RECEIVED CONTRAST 20 ML VIAL IV SCH (12:00)
[2022-12-21 12:04] LABS: ALBUMIN 3.6 GM/DL (3.2-4.5); CHLORIDE 104 MMOL/L (98-107); POTASSIUM 3.7 MMOL/L (3.6-5.0); SODIUM 138 MMOL/L (135-145)
[2022-12-21 12:05] LABS: CALCIUM 8.1 MG/DL (8.5-10.1); PROTHROMBIN TIME PATIENT 13.6 SEC (12.2-14.7)
[2022-12-21 12:06] LABS: GLUCOSE 134 MG/DL (70-105); TOTAL PROTEIN 6.5 GM/DL (6.4-8.2)
[2022-12-21 12:07] LABS: CARBON DIOXIDE 23 MMOL/L (21-32)
[2022-12-21 12:08] LABS: BILIRUBIN,TOTAL 0.3 MG/DL (0.1-1.0)
[2022-12-21 12:10] LABS: ALKALINE PHOSPHATASE 225 U/L (40-136); CREATININE SERUM 0.59 MG/DL (0.60-1.30); GFR ESTIMATED 97
[2022-12-21 12:11] LABS: BUN/CREATININE RATIO 22
[2022-12-21 12:13] LABS: ALANINE AMINOTRANSFERASE 122 U/L (0-55)
--- NOTE | 2022-12-21 12:51 | Diagnostic Imaging Report ---
PROCEDURE: CT abdomen and pelvis with contrast. TECHNIQUE: Multiple contiguous axial images were obtained through the abdomen and pelvis after administration of intravenous contrast. Auto Exposure Controls were utilized during the CT exam to meet ALARA standards for radiation dose reduction. All CT scans use one or more of the following dose optimizing techniques: automated exposure control, MA and/or KvP adjustment based on patient size and exam type or iterative reconstruction. INDICATION: Generalized abdominal pain. COMPARISON: 04/06/2022. FINDINGS: The heart is mildly large. There are airspace consolidations in the lung bases which appear improved since the prior study and may be chronic atelectasis and scarring. The liver demonstrates no focal lesions. There is mild intrahepatic biliary dilatation, similar to the prior study. The common bile duct is large. The pancreatic duct is mildly large and appears similar to the prior exam. The spleen appears normal. The pancreas demonstrates no masses or surrounding edema. The adrenal glands appear normal. The kidneys demonstrate no enhancing lesions. No hydroureter is seen. There has been prior surgery with urostomy and diversion of the ureters. There appears to be a fluid collection in the pelvis which has some internal air measuring about 8 x 4.4 cm in size. This is partially obscured by the hip implants. The bowel loops are nondistended without obstruction. There is streak artifact obscuring the pelvis due to the bilateral hip arthroplasties. No free fluid or free air is seen. The aorta has marked atherosclerosis but appears normal in caliber. There is moderate stool in the colon. No acute osseous abnormality is seen. IMPRESSION: 1. Post surgical changes from ureteral diversion and ileostomy. There appears to be a fluid collection in the pelvis but this is partially obscured by streak artifact from the bilateral hip implants. This could be due to an abscess. Distended fluid-filled bowel is in the differential. 2. Atelectasis and scarring in the lung bases. 3. Dilated common bile duct and pancreatic duct. This appears to be chronic. Dictated by: Dictated on workstation # [id number]
[2022-12-21 13:07] LABS: BILIRUBIN,URINE NEGATIVE (NEGATIVE); CLARITY,URINE TURBID; COLOR,URINE YELLOW; GLUCOSE, URINE (UA) 3+ (NEGATIVE); KETONES,URINE NEGATIVE (NEGATIVE); NITRITE,URINE POSITIVE (NEGATIVE); PH,URINE 6.5 (5-9); PROTEIN,URINE NEGATIVE (NEGATIVE)
[2022-12-21 13:08] LABS: BACTERIA,URINE TRACE /HPF; LEUKOCYTE ESTERASE ,URINE NEGATIVE (NEGATIVE)
--- NOTE | 2022-12-21 13:16 | Diagnostic Imaging Report ---
CHEST 1 VIEW, AP/PA ONLY. Indication: Cough. Comparison: 12/17/[address] abdomen/pelvis from 12/21/2022. Findings: Left greater than right basilar opacities are present. No pleural effusion or pneumothorax. Heart is normal in size. Impression: Basilar pulmonary opacities favor atelectasis and were better evaluated on CT from earlier same day. Dictated by: Dictated on workstation # [id number]
[2022-12-21] MEDS ORDERED: ONDANSETRON INJECTION 4 MG/2 ML (SDV) IVP ONE (14:45)
[2022-12-21] MEDS ORDERED: morphine INJ 4 MG/ML 1 ML (VIAL/SYRINGE) IVP ONE (14:45)
[2022-12-21] MEDS ORDERED: LACTULOSE SYRUP 10GM/15ML 30ML UDC PO PRN (15:00)
[2022-12-21] MEDS ORDERED: diphenhydrAMINE 25 MG TABLET PO PRN (15:00)
[2022-12-21] MEDS ORDERED: diphenhydrAMINE INJ 50 MG/ML VIAL IVP PRN (15:00)
[2022-12-21] MEDS ORDERED: BISACODYL 10 MG SUPPOSITORY PR PRN (15:00)
[2022-12-21] MEDS ORDERED: ACETAMINOPHEN 325 MG TABLET PO PRN (15:00)
[2022-12-21] MEDS ORDERED: ANTACID SUSPENSION 30 ML UDC PO PRN (15:00)
[2022-12-21] MEDS ORDERED: CALCIUM CARBONATE 500 MG CHEW TABLET PO PRN (15:00)
[2022-12-21] MEDS ORDERED: MELATONIN 3 MG TABLET PO PRN (15:00)
[2022-12-21] MEDS ORDERED: VANCOMYCIN INJECTION 0.1 MG in NS (IVPB) 250 ML 250 ML IV SCH (15:00)
--- NOTE | 2022-12-21 15:11 | Tele-ICU Progress Note ---
Subjective Date Seen by a Provider: Dec 21, 2022 Subjective/Events-last exam This virtual visit was conducted using real time audio/video. Thank you for asking us to see this patient for respiratory insufficiency, resolving UTI, hypotensionand 4.4 x 8 cm pelvic abscess. PMH: COPD, CAD, IBS, ileostomy SH: smoking history: current PE: SBP 84. O2 sat 93% HEENT: No obvious masses, adenopathy or JVD. Chest: clear to auscultation. CV: RRR S1 S2 No murmur or added sounds. Abd: Non-tender. Bowel sounds Y. : Unremarkable. Ileostomy. PIPELINE SUPERINTENDENT/psychiatric: Grossly intact. No obvious focal findings. Extremities: No edema. Capillary refill < 3 seconds. Skin: unremarkable. Results: Decreased WCC 3.5. CXR:Hyperinflated, clear. Available chart/ vitals / labs / images reviewed. Video assessment done using teleICU camera, rest of exam as per RN. A/P: Respiratory insufficiency: Continue present management with O2 Monitor for increasing oxygenation needs and/or need for intubation. Critical Care: critically ill patient with pelvic abscess. Cont. IVF, abx. Discussed with RN Justine. Asked RN to reach out to eICU if any questions or concerns later. Time spent with patient/coordination of care with other health professionals (mins): 22 Sepsis Event Evaluation Height, Weight, BMI Height: 5'4.00" Weight: 165lbs. 0.0oz. 72.761807kc; 21.00 BMI Method:Stated Focused Exam Lactate Level 12/21/22 11:42: Lactic Acid Level 1.73 Lactic Acid Level Laboratory Tests Test 12/21/22 11:42 Lactic Acid Level 1.73 MMOL/L (0.50-2.00) Exam Exam Patient acknowledged, consented, and participated in this virtual visit which was conducted using real time audio/video Vital Signs Date Time Temp Pulse Resp B/P (MAP) Pulse Ox O2 Delivery O2 Flow Rate FiO2 12/21/22 14:28 65 16 122/64 98 Nasal Cannula 4.00 12/21/22 11:25 37.0 74 17 120/81 (94) 93 Nasal Cannula 4.00 12/21/22 11:25 93 Nasal Cannula 4.00 Height & Weight Height: 5'4.00" Weight: 165lbs. 0.0oz. 72.705046iy; 21.00 BMI Method:Stated General Appearance: No Apparent Distress, WD/WN HEENT: PERRL/EOMI, TMs Normal, Normal ENT Inspection, Pharynx Normal Neck: Full Range of Motion, Normal Inspection, Non Tender, Supple Respiratory: Chest Non Tender, Normal Breath Sounds, No Accessory Muscle Use, Wheezing Cardiovascular: Regular Rate, Rhythm, No Edema, No Gallop, No JVD Capillary Refill: Less Than 3 Seconds Extremity: Normal Capillary Refill, Normal Inspection, Normal Range of Motion, Non Tender Neurologic/Psychiatric: Alert, Oriented x3, No Motor/Sensory Deficits, Normal Mood/Affect, aircraft painter II-XII Norm as Tested Skin: Normal Color, Warm/Dry Results Lab Laboratory Tests 12/21/22 11:42 Assessment/Plan Assessment/Plan See free text. Critical Care: Critically Ill Patient TAHMINA COELHO MD Dec 21, 2022 15:11
[2022-12-21] MEDS ORDERED: VANCOMYCIN 1 GM/NS 250 ML IVPB IV ONE ×2 (15:15)
[2022-12-21] MEDS: NS IV 1000 ML 1,000 ML IV SCH (15:44)
[2022-12-21 16:24] VITALS: BP 120/81
[2022-12-21] MEDS ORDERED: MELO15TA39 PO (16:42)
[2022-12-21] MEDS ORDERED: SUMA25TA4 PO (16:42)
[2022-12-21] MEDS ORDERED: LAMO25TA8 PO (16:42)
[2022-12-21] MEDS ORDERED: DENO60DI SQ (16:42)
[2022-12-21] MEDS ORDERED: ESCI10TA PO (16:42)
[2022-12-21] MEDS ORDERED: TRAZ150T72 PO (16:42)
[2022-12-21] MEDS ORDERED: GENT5DRO6 OP (16:42)
[2022-12-21] MEDS ORDERED: DIGO250T3 PO (16:42)
[2022-12-21] MEDS ORDERED: TIZA2CAP9 PO (16:42)
[2022-12-21] MEDS ORDERED: ROPI2TAB52 PO (16:42)
[2022-12-21] MEDS ORDERED: BUDE10.7 IH (16:42)
[2022-12-21] MEDS ORDERED: SENN-234 PO (16:42)
[2022-12-21] MEDS ORDERED: COLE1TAB PO (16:42)
[2022-12-21] MEDS ORDERED: ISOS120T9 PO (16:42)
[2022-12-21] MEDS ORDERED: FLUT1BLS3 IH (16:42)
[2022-12-21] MEDS ORDERED: CYPR4TAB41 PO (16:42)
[2022-12-21] MEDS ORDERED: DONE10TA12 PO (16:42)
[2022-12-21] MEDS ORDERED: BUSP15TA60 PO (16:42)
[2022-12-21] MEDS ORDERED: DIPH1TAB PO (16:52)
[2022-12-21] MEDS ORDERED: RT-Ipratropium/Albuterol NEB 3 ML VIAL INH PRN (17:00)
[2022-12-21] MEDS: morphine INJ 4 MG/ML 1 ML (VIAL/SYRINGE) IV PRN ×3 (17:10→21:55)
[2022-12-21] MEDS: MEROPENEM INJECTION 500 MG in NS (IVPB) 100 ML 100 ML IV SCH ×2 (18:19→23:37)
[2022-12-21] MEDS: ONDANSETRON INJECTION 4 MG/2 ML (SDV) IV PRN ×2 (18:19→23:40)
[2022-12-21] MEDS ORDERED: ELUXADOLINE 75 MG PO SCH (21:00)
[2022-12-21] MEDS ORDERED: ALOSETRON HCL 0.5 MG PO SCH (21:00)
[2022-12-21] MEDS ORDERED: RT-Ipratropium/Albuterol NEB 3 ML VIAL ONE (21:23)
[2022-12-21] MEDS: RT-Ipratropium/Albuterol NEB 3 ML VIAL INH SCH (21:27)
[2022-12-21] MEDS: DOCUSATE SODIUM 100 MG CAPSULE PO SCH (21:43)
[2022-12-21] MEDS: PRIMIDONE 250MG TABLET PO SCH (21:43)
[2022-12-21] MEDS: MONTELUKAST 10 MG TABLET PO SCH (21:44)
[2022-12-21] MEDS: clonazePAM 1 MG TABLET PO SCH (21:44)
[2022-12-21] MEDS: SENNOSIDES 8.6 MG TABLET PO SCH (21:45)
[2022-12-21] MEDS: traZODone 150 MG (DESYREL) TABLET PO SCH (21:46)
[2022-12-21] MEDS: busPIRone 15 MG TABLET PO SCH (21:46)
[2022-12-21] MEDS: rOPINIRole 1 MG TABLET PO SCH (21:50)
[2022-12-21] MEDS: DONEPEZIL 10 MG TABLET PO SCH (21:50)
[2022-12-21] MEDS: COLESTIPOL 1 GM TABLET PO SCH (22:12)
[2022-12-21] MEDS: LATANOPROST 0.005% OPHTH SOLN 2.5 ML OU SCH (22:12)
[2022-12-22] MEDS ORDERED: BENZONATATE 100 MG CAPSULE PO ONE (00:44)
[2022-12-22] MEDS: BENZONATATE 100 MG CAPSULE PO PRN ×2 (00:48→10:09)
[2022-12-22] MEDS: morphine INJ 4 MG/ML 1 ML (VIAL/SYRINGE) IV PRN ×5 (02:01→18:14)
[2022-12-22] MEDS: ONDANSETRON 4 MG ORAL DISSOLVE TABLET PO PRN ×3 (02:01→22:06)
[2022-12-22] MEDS: RT-Ipratropium/Albuterol NEB 3 ML VIAL INH SCH ×4 (02:47→19:09)
[2022-12-22] MEDS: PROCHLORPERAZINE INJ 10 MG/2ML VIAL IV PRN ×2 (03:16→16:26)
[2022-12-22] MEDS: NS IV 1000 ML 1,000 ML IV SCH ×2 (03:17→07:31)
[2022-12-22] MEDS: VANCOMYCIN 500 MG/NS 100 ML IVPB IV SCH ×4 (04:05→16:26)
[2022-12-22 04:46] LABS: PLATELET COUNT 89 10^3/uL (130-400); WHITE BLOOD COUNT 4.3 10^3/uL (4.3-11.0)
[2022-12-22 04:48] LABS: BASOPHILS % (AUTO) 0 % (0-10); EOSINOPHILS # (AUTO) 0.2 10^3/uL (0.0-0.3); EOSINOPHILS % (AUTO) 4 % (0-10); HEMATOCRIT 34 % (35-52); HEMOGLOBIN 10.8 g/dL (11.5-16.0); LYMPHOCYTES % (AUTO) 22 % (12-44); MEAN CORPUSCULAR HEMOGLOBIN 28 pg (25-34); MEAN CORPUSCULAR HGB CONC 31 g/dL (32-36); MEAN CORPUSCULAR VOLUME 90 fL (80-99); MONOCYTES # (AUTO) 0.3 10^3/uL (0.0-1.0); MONOCYTES % (AUTO) 7 % (0-12); NEUTROPHILS # (AUTO) 2.9 10^3/uL (1.8-7.8); NEUTROPHILS % (AUTO) 67 % (42-75)
[2022-12-22 05:15] LABS: ALBUMIN 3.3 GM/DL (3.2-4.5); BILIRUBIN,TOTAL 0.3 MG/DL (0.1-1.0); CALCIUM 7.4 MG/DL (8.5-10.1); CREATININE SERUM 0.51 MG/DL (0.60-1.30); POTASSIUM 3.3 MMOL/L (3.6-5.0); TOTAL PROTEIN 5.5 GM/DL (6.4-8.2)
[2022-12-22] MEDS: PANTOPRAZOLE 40 MG TABLET PO SCH (06:14)
[2022-12-22] MEDS: MEROPENEM INJECTION 500 MG in NS (IVPB) 100 ML 100 ML IV SCH ×3 (06:16→18:14)
[2022-12-22] MEDS ORDERED: NS IV 500 ML 500 ML IV PRN (07:30)
[2022-12-22] MEDS ORDERED: POTASSIUM CHLORIDE 20 MEQ TABLET PO ONE ×2 (07:45→09:45)
[2022-12-22] MEDS: TIOTROPIUM INH 4 GM (SPIRIVA Respimat) IH SCH (08:35)
[2022-12-22] MEDS: FLUTICASONE/VILANTEROL 100/25 MCG (7 DOSES) IH SCH (08:35)
[2022-12-22] MEDS ORDERED: RX-GENTAMICIN SULFATE 0.3% OP 5 ML BTL OP SCH (09:00)
[2022-12-22] MEDS: LIDOCAINE 4% PATCH TOP SCH (09:13)
[2022-12-22] MEDS: FLUTICASONE NASAL SPRAY (120 SPRAYS) NS SCH (09:14)
[2022-12-22] MEDS: DIGOXIN 0.25 MG TABLET PO SCH (09:15)
[2022-12-22] MEDS: DOCUSATE SODIUM 100 MG CAPSULE PO SCH ×2 (09:15→20:43)
[2022-12-22] MEDS: rOPINIRole 1 MG TABLET PO SCH ×2 (09:15→20:43)
[2022-12-22] MEDS: CYPROHEPTADINE 4 MG TABLET PO SCH ×3 (09:15→20:43)
[2022-12-22] MEDS: clonazePAM 1 MG TABLET PO SCH ×2 (09:16→20:43)
[2022-12-22] MEDS: PRIMIDONE 250MG TABLET PO SCH ×2 (09:16→20:43)
[2022-12-22] MEDS: busPIRone 15 MG TABLET PO SCH ×2 (09:16→20:43)
[2022-12-22] MEDS: lamoTRIgine 25 MG TABLET PO SCH (09:16)
[2022-12-22] MEDS: EMPAGLIFLOZIN 10 MG TABLET PO SCH (09:16)
[2022-12-22] MEDS: MELOXICAM 7.5 MG TABLET PO SCH (09:16)
[2022-12-22] MEDS: CITALOPRAM 20 MG TABLET PO SCH (09:17)
[2022-12-22] MEDS: COLESTIPOL 1 GM TABLET PO SCH ×2 (09:17→20:42)
[2022-12-22] MEDS: ROSUVASTATIN 20 MG TABLET PO SCH (09:17)
[2022-12-22] MEDS: SENNOSIDES 8.6 MG TABLET PO SCH ×2 (09:17→20:43)
[2022-12-22] MEDS: FLUDROCORTISONE 0.1 MG TABLET PO SCH (09:36)
--- NOTE | 2022-12-22 10:35 | Tele-ICU Progress Note ---
Subjective Date Seen by a Provider: Dec 22, 2022 Time Seen by a Provider: 10:35 Subjective/Events-last exam (Tele-ICU Physician , Progress Note ) Service provided via interactive audio and video telecommunications E-CARE system to a patient admitted to ICU bed in [facility]. Patient is seen today due to persistent need of ICU care Available chart/ vitals / labs / Images reviewed Video assessment done using teleICU camera, rest of exam as per RN Discussed with RN Events overnight : Afebrile hemodynamically stable Respiratory - 4L I/O =+ Drips: stopped Pressors- no Hospital course: (12/21) 67F Admitted for abdominal abscess, UTI-was already on treatment, Hypotension-prior to arrival A/P UTI/ chronic colonisation - cont abx , await sens Hypotension - resolved with IVF , no pressorts Hypoxia - baselline 4 L - off IVF Anemia - delutinal GERRY - not compliant with CPAP H/o Afib ( in sinus ) - on eliquis 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 Discussed with RN to reach out if any questions or concerns Case and care daily discussed on multidisciplinary rounds ( RN, PharmD, Rice Dryer Mechanic , Respiratory Therapy, lumber yard worker ) A total of 20 minutes of critical care time was devoted to this patient today, required to treat and/or prevent further deterioration of critical care condition ( as above ) . I am remotely monitoring this patient from another state. I am unable to do the bedside exam, and history/physical and pertinent information is taken from other notes in the computer and bedside staff. Sepsis Event Evaluation Height, Weight, BMI Height: 5'4.00" Weight: 165lbs. 0.0oz. 72.890634ev; 23.33 BMI Method:Stated Focused Exam Lactate Level 12/21/22 11:42: Lactic Acid Level 1.73 Exam Exam Patient acknowledged, consented, and participated in this virtual visit which was conducted using real time audio/video Vital Signs Date Time Temp Pulse Resp B/P (MAP) Pulse Ox O2 Delivery O2 Flow Rate FiO2 12/22/22 10:00 74 15 108/59 (75) 93 Nasal Cannula 4.00 12/22/22 09:00 80 18 108/62 (80) 94 Nasal Cannula 4.00 12/22/22 08:53 95 Nasal Cannula 4.00 12/22/22 08:49 97 Nasal Cannula 6.00 12/22/22 08:47 Nasal Cannula 6.00 12/22/22 08:46 96 Nasal Cannula 6.00 12/22/22 08:35 95 OxyMask 10.00 12/22/22 08:09 36.4 12/22/22 08:00 99 OxyMask 10.00 12/22/22 08:00 71 13 103/67 (78) 91 OxyMask 6.00 12/22/22 07:00 77 14 102/58 (73) 92 OxyMask 6.00 12/22/22 07:00 77 12/22/22 06:00 85 16 95/60 (72) 92 OxyMask 6.00 12/22/22 05:18 6 OxyMask 12/22/22 05:00 109/60 (76) OxyMask 6.00 12/22/22 04:00 6 OxyMask 12/22/22 04:00 36.3 88 17 113/64 (83) 87 OxyMask 6.00 12/22/22 03:00 90 20 113/73 (87) 92 OxyMask 6.00 12/22/22 02:47 OxyMask 6.00 12/22/22 02:00 113 29 125/90 (106) 89 OxyMask 6.00 12/22/22 01:00 80 19 113/62 (83) 85 OxyMask 6.00 12/22/22 00:36 78 12/22/22 00:00 4 Nasal Cannula 12/22/22 00:00 36.1 78 19 101/57 (71) 93 OxyMask 4.00 12/21/22 23:00 82 14 90/51 (65) 90 Nasal Cannula 4.00 12/21/22 22:00 76 25 116/73 (87) 90 Nasal Cannula 4.00 12/21/22 21:30 95 Nasal Cannula 4.00 12/21/22 21:00 74 25 118/72 (90) 91 Nasal Cannula 4.00 12/21/22 20:05 4 Nasal Cannula 12/21/22 20:00 74 28 107/74 (88) 92 Nasal Cannula 4.00 12/21/22 19:52 36.5 12/21/22 19:41 12/21/22 19:00 19 102/64 (74) 93 Nasal Cannula 4.00 12/21/22 19:00 74 12/21/22 18:00 75 25 129/88 (102) 93 Nasal Cannula 4.00 12/21/22 17:00 75 25 122/65 (84) 97 Nasal Cannula 4.00 12/21/22 16:24 37.0 74 93 36 12/21/22 16:00 61 20 99/69 (79) 98 Nasal Cannula 4.00 12/21/22 15:59 36.4 12/21/22 15:05 36.4 78 20 84/65 (71) 98 Nasal Cannula 4.00 12/21/22 15:00 71 12/21/22 15:00 98 Nasal Cannula 4.00 12/21/22 15:00 79 25 113/64 (80) 99 Nasal Cannula 4.00 12/21/22 14:28 65 16 122/64 98 Nasal Cannula 4.00 12/21/22 11:25 37.0 74 17 120/81 (94) 93 Nasal Cannula 4.00 12/21/22 11:25 93 Nasal Cannula 4.00 I & O 12/22/22 07:00 Intake Total 4375 ml Output Total 2250 ml Balance 2125 ml Height & Weight Height: 5'4.00" Weight: 165lbs. 0.0oz. 72.309153en; 23.33 BMI Method:Stated General Appearance: No Apparent Distress, WD/WN HEENT: PERRL/EOMI, TMs Normal, Normal ENT Inspection, Pharynx Normal Neck: Full Range of Motion, Normal Inspection, Non Tender, Supple Respiratory: Chest Non Tender, Normal Breath Sounds, No Accessory Muscle Use, Wheezing Cardiovascular: Regular Rate, Rhythm, No Edema, No Gallop, No JVD Capillary Refill: Less Than 3 Seconds Extremity: Normal Capillary Refill, Normal Inspection, Normal Range of Motion, Non Tender Neurologic/Psychiatric: Alert, Oriented x3, No Motor/Sensory Deficits, Normal Mood/Affect, senior dot net developer II-XII Norm as Tested Skin: Normal Color, Warm/Dry Results Lab Laboratory Tests 12/21/22 11:42 12/22/22 04:30 Assessment/Plan Assessment/Plan 1 HANNAH FELICIANO MD Dec 22, 2022 10:35
--- NOTE | 2022-12-22 15:47 | History & Physical-Hospitalist ---
ANAHI ANTONIO 12/22/22 1547: History of Present Illness HPI/Chief Complaint Patient is a 67 yo F with PMH of COPD, IBS, bladder cancer and CAD that presents with general fatigue, abdominal pain and low blood pressure for the past one to two months. She reports that her abdominal pain has been increasing in intensity, especially the past week, and is a diffuse sharp pain that she says is a 10/10. She reports having lots of diarrhea the past few weeks and has now been constipated the past three days but says it is worse than her normal BM with IBS. She also reports around a 40 lbs weight loss in the same time period. She feels as though she is always tired and has no energy and has been sleeping more. She reports her BP at home runs low around 90's/50's. She was at [facility] ER 3 days ago where they treated her for a UTI. She also reports a cough and feeling nauseous. She denies chills, diarrhea, dizziness, vomiting. At home she is on 4 L of oxygen. Source: patient Exam Limitations: no limitations Date Seen 12/22/22 Time Seen by a Provider: 10:20 Attending Physician Joseph Fuentes MD PCP Admitting Physician: Kaila Painter DO Attending Physician: Vickie Camejo MD Referring Physician Date of Admission Dec 21, 2022 at 14:37 Home Medications & Allergies Home Medications Reviewed patient Home Medication Reconciliation performed by pharmacy medication reconciliations diesel service technician and/or nursing. Patients Allergies have been reviewed. Allergies Allergies Coded Allergies bacitracin (Verified Allergy, Intermediate, "I BREAK OUT IN A RASH ALL OVER.", 04/02/22) neomycin (Verified Allergy, Intermediate, "I BREAK OUT IN A RASH ALL OVER.", 04/02/22) polymyxin B (Verified Allergy, Intermediate, "I BREAK OUT IN A RASH ALL OVER.", 04/02/22) ibuprofen (Verified Allergy, Mild, RASH, 04/02/22) naproxen (Verified Allergy, Mild, RASH, 04/02/22) strawberry (Verified Allergy, Mild, 04/02/22) sulfamethoxazole (Verified Allergy, Unknown, 04/02/22) tramadol (Verified Allergy, Unknown, Has rec lortab & oxycodone in the past, 06/21/22) trimethoprim (Verified Allergy, Unknown, 04/02/22) Past Wmujbbq-Qyfsju-Mabmcn Hx Patient Social History Tobacco Use?: Yes Tobacco type used: Cigarettes Smoking Status: Current Everyday Smoker Smokeless Tobacco Frequency: Never a User Use of E-Cig and/or Vaping dev: No Substance use?: No Alcohol Use?: No Pt feels they are or have been: No Immunizations Up To Date Date of Influenza Vaccine: Jan 31, 2022 First/Initial COVID19 Vaccinat: 2021 Second COVID19 Vaccination Hugo: 2021 Tetanus Booster (TDap): Unknown Hepatitis A: No Hepatitis B: No PED Vaccines UTD: No Date of Pneumonia Vaccine: Jan 11, 2019 Seasonal Allergies Seasonal Allergies: Yes Current Status status: No Advance Directives: No Communicates: Verbally Primary Language: Slovak Preferred Spoken Language: Slovak Is interpretation needed?: No Sensory deficits: Vision impairment Implanted or Applied Medical D: Orthopedic hardware Past Medical History Surgeries: Cystectomy, Gallbladder, Orthopedic, Pancreatic COPD, Emphysema Currently Using CPAP: No Currently Using BIPAP: No High Cholesterol, Irregular Heartbeat, Palpitations Seizure Disorder, TIA DIRECTOR CHECK History: Menopausal Sexually Transmitted Disease: No HIV/AIDS: No UTI-Chronic Gastroesophageal Reflux, Chronic Diarrhea Arthritis, Back Injury Diabetes, Non-Insulin dep Cataract Loss of Vision: Denies Hearing Impairment: Hard of Hearing Bladder Did You Recieve Any Treatments: Yes What Type of Treatment Did You: Surgical Intervention Anxiety, Depression Psoriasis Blood Disorders: No Adverse Reaction/Blood Tranf: No Past medical history 1. Coronary artery disease 2. Tonic obstructive pulmonary disease 3. Hyperlipidemia 4. Gastroesophageal reflux disease 5. Hypoxic brain injury 7. Cervical and lumbar disc disease 8. Crohn's disease Past surgical history 1. Cervical discectomy 2. Implantation and removal of stimulator 3. EGD 4. Coronary angiography Family Medical History Cardiovascular disease G8 BROTHER (TRIPLE BYPASS) Diabetes mellitus 19 MOTHER FH: COPD (chronic obstructive pulmonary disease) 19 MOTHER FH: breast cancer 19 MOTHER FHx: brain cancer 19 FATHER No Pertinent Family Hx Review of Systems Constitutional: No chills, No fever; malaise, weakness, weight loss (40 lbs in 1-2 months) EENTM: No blurred vision, No double vision, No vision loss Respiratory: cough Cardiovascular: No chest pain Gastrointestinal: abdominal pain (diffuse sharp pain), constipation; No diarrhea; nausea; No vomiting Psychiatric/Neurological: Weakness (generalized) Physical Exam Physical Exam Vital Signs Vital Signs - First Documented 12/21/22 12/21/22 11:25 16:24 Temp 37.0 Pulse 74 Resp 17 B/P (MAP) 120/81 (94) Pulse Ox 93 O2 Delivery Nasal Cannula O2 Flow Rate 4.00 FiO2 36 Capillary Refill : Less Than 3 Seconds Height, Weight, BMI Height: 5'4.00" Weight: 165lbs. 0.0oz. 72.650866dw; 23.33 BMI Method:Stated General Appearance: No Apparent Distress, Chronically ill Neck: Normal Inspection Respiratory: Chest Non Tender, No Accessory Muscle Use, No Respiratory Distress, Crackles, Wheezing Cardiovascular: Regular Rate, Rhythm, No Edema, No Murmur Gastrointestinal: Normal Bowel Sounds, Soft, Tenderness (diffuse) Extremity: No Pedal Edema Neurologic/Psychiatric: Alert, Oriented x3 Skin: Normal Color, Warm/Dry Results Results/Procedures Labs Laboratory Tests 12/21/22 11:42 12/22/22 04:30 Patient resulted labs reviewed. Assessment/Plan Assessment and Plan Chronic respiratory failure COPD CXR- atelectasis Continue O2- patient is on 4 L at home Bronchodilators Hypotension Pelvic abscess UTI IV vancomycin and meropenem IV fluids Urine culture- probable enterococcus, pseudomonas Nausea meds IBS Laxatives for constipation VICKIE VASQUEZ MD 12/22/22 1832: History of Present Illness Time Seen by a Provider: 10:55 Past Nckptis-Zwdvkz-Iuluvc Hx Patient Social History Tobacco Use?: Yes Tobacco type used: Cigarettes Smoking Status: Current Everyday Smoker Approx how many per day: 2 Substance use?: No Alcohol Use?: No Family Medical History Cardiovascular disease G8 BROTHER (TRIPLE BYPASS) Diabetes mellitus 19 MOTHER FH: COPD (chronic obstructive pulmonary disease) 19 MOTHER FH: breast cancer 19 MOTHER FHx: brain cancer 19 FATHER Results Results/Procedures Imaging: Reviewed Imaging Films, Reviewed Imaging Report Assessment/Plan Admission Diagnosis Shock Admission Status: Inpatient Order (span 2 midnights) Reason for Inpatient Admission: Pelvic abscess UTI Assessment and Plan Presented with abdominal pain and admitted with hypotension due to UTI and pelvic fluid collection, possible abscess. Started on Vanc and Merrem. Consider repeat imaging tomorrow to reevaluate fluid collection. Critical Care Critically Ill Patient Diagnosis/Problems Diagnosis/Problems (1) Hypotension Status: Acute (2) Pelvic fluid collection Status: Acute (3) UTI (urinary tract infection) Status: Acute (4) Elevated LFTs Status: Acute Supervisory-Addendum Brief Verification & Attestation Participated in pt care: history, MDM, physical Personally performed: exam, history, MDM, supervision of care Care discussed with: Medical Student Procedures: n/a A medical student performed and documented this service in my presence. I reviewed and verified all information documented by the medical student and made modifications to such information, when appropriate. I personally performed the physical exam and medical decision making. ANAHI ANTONIO Dec 22, 2022 15:47 VICKIE CAMEJO MD Dec 22, 2022 18:32
[2022-12-22] MEDS: LATANOPROST 0.005% OPHTH SOLN 2.5 ML OU SCH (20:42)
[2022-12-22] MEDS: MONTELUKAST 10 MG TABLET PO SCH (20:42)
[2022-12-22] MEDS: MUPIROCIN 2% OINTMENT 22 GM TUBE NSEACH SCH (20:43)
[2022-12-22] MEDS: DONEPEZIL 10 MG TABLET PO SCH (20:43)
[2022-12-22] MEDS: traZODone 150 MG (DESYREL) TABLET PO SCH (20:43)
[2022-12-23] MEDS: MEROPENEM INJECTION 500 MG in NS (IVPB) 100 ML 100 ML IV SCH ×4 (00:02→21:50)
[2022-12-23] MEDS: VANCOMYCIN 500 MG/NS 100 ML IVPB IV SCH ×2 (03:54)
[2022-12-23 05:23] LABS: BASOPHILS % (AUTO) 0 % (0-10); HEMATOCRIT 35 % (35-52); HEMOGLOBIN 10.9 g/dL (11.5-16.0); MEAN CORPUSCULAR HGB CONC 32 g/dL (32-36)
[2022-12-23 05:25] LABS: EOSINOPHILS # (AUTO) 0.1 10^3/uL (0.0-0.3); EOSINOPHILS % (AUTO) 3 % (0-10); LYMPHOCYTES # (AUTO) 1.1 10^3/uL (1.0-4.0); LYMPHOCYTES % (AUTO) 34 % (12-44); MEAN CORPUSCULAR HEMOGLOBIN 29 pg (25-34); MEAN CORPUSCULAR VOLUME 90 fL (80-99); MEAN PLATELET VOLUME 11.2 fL (9.0-12.2); MONOCYTES # (AUTO) 0.3 10^3/uL (0.0-1.0); MONOCYTES % (AUTO) 9 % (0-12); NEUTROPHILS # (AUTO) 1.7 10^3/uL (1.8-7.8); NEUTROPHILS % (AUTO) 54 % (42-75); PLATELET COUNT 101 10^3/uL (130-400); WHITE BLOOD COUNT 3.1 10^3/uL (4.3-11.0)
[2022-12-23 05:43] LABS: ALBUMIN 3.1 GM/DL (3.2-4.5); BILIRUBIN,TOTAL 0.2 MG/DL (0.1-1.0); CALCIUM 8.1 MG/DL (8.5-10.1); CREATININE SERUM 0.5 MG/DL (0.60-1.30); MAGNESIUM 1.8 MG/DL (1.6-2.4); POTASSIUM 4.1 MMOL/L (3.6-5.0); TOTAL PROTEIN 5.4 GM/DL (6.4-8.2)
[2022-12-23] MEDS: POTASSIUM CL 10MEQ/50ML IVPB 50 ML IV SCH (05:54)
[2022-12-23] MEDS: POTASSIUM CHLORIDE 20 MEQ TABLET PO SCH (05:54)
[2022-12-23] MEDS: MAGNESIUM 1 GM/100 ML IVPB 100 ML IV SCH ×3 (05:55→09:22)
[2022-12-23] MEDS: PANTOPRAZOLE 40 MG TABLET PO SCH (06:08)
[2022-12-23] MEDS: morphine INJ 4 MG/ML 1 ML (VIAL/SYRINGE) IV PRN ×3 (06:46→19:23)
[2022-12-23] MEDS: RT-Ipratropium/Albuterol NEB 3 ML VIAL INH SCH ×4 (07:02→19:59)
[2022-12-23] MEDS: TIOTROPIUM INH 4 GM (SPIRIVA Respimat) IH SCH (07:08)
[2022-12-23] MEDS: FLUTICASONE/VILANTEROL 100/25 MCG (7 DOSES) IH SCH (07:08)
--- NOTE | 2022-12-23 08:55 | Diagnostic Imaging Report ---
INDICATION: Cough. Comparison is made with prior exam of 12/21/2022. FINDINGS: The heart size is normal. There are some right basilar atelectasis and/or pneumonitis and right pleural effusion. No pneumothorax. Mediastinum unremarkable. IMPRESSION: Right basilar atelectasis and/or pneumonitis and small right pleural effusion. Dictated by: Dictated on workstation # [id number]
[2022-12-23] MEDS: MUPIROCIN 2% OINTMENT 22 GM TUBE NSEACH SCH ×2 (09:22→20:57)
[2022-12-23] MEDS: FLUTICASONE NASAL SPRAY (120 SPRAYS) NS SCH (09:23)
[2022-12-23] MEDS: rOPINIRole 1 MG TABLET PO SCH ×2 (09:23→20:57)
[2022-12-23] MEDS: CYPROHEPTADINE 4 MG TABLET PO SCH ×3 (09:24→20:58)
[2022-12-23] MEDS: ROSUVASTATIN 20 MG TABLET PO SCH (09:24)
[2022-12-23] MEDS: clonazePAM 1 MG TABLET PO SCH ×2 (09:24→20:58)
[2022-12-23] MEDS: MELOXICAM 7.5 MG TABLET PO SCH (09:26)
[2022-12-23] MEDS: LIDOCAINE 4% PATCH TOP SCH (09:26)
--- NOTE | 2022-12-23 09:26 | Progress Note - Hospitalist ---
Subjective HPI/CC On Admission Date Seen by Provider: Dec 23, 2022 Patient is a 67 yo F with PMH of COPD, IBS, bladder cancer and CAD that presents with general fatigue, abdominal pain and low blood pressure for the past one to two months. She reports that her abdominal pain has been increasing in intensity, especially the past week, and is a diffuse sharp pain that she says is a 10/10. She reports having lots of diarrhea the past few weeks and has now been constipated the past three days but says it is worse than her normal BM with IBS. She also reports around a 40 lbs weight loss in the same time period. She feels as though she is always tired and has no energy and has been sleeping more. She reports her BP at home runs low around 90's/50's. She was at [facility] ER 3 days ago where they treated her for a UTI. She also reports a cough and feeling nauseous. She denies chills, diarrhea, dizziness, vomiting. At home she is on 4 L of oxygen. Subjective/Events-last exam Pt reports still having abd pain. No much better. Also coughing some today. Focused Exam Lactate Level 12/21/22 11:42: Lactic Acid Level 1.73 Objective Exam Vital Signs Vital Signs Date Time Temp Pulse Resp B/P (MAP) Pulse Ox O2 Delivery O2 Flow Rate FiO2 12/23/22 13:12 36.3 12/23/22 13:00 63 33 95 Nasal Cannula 5.00 12/21/22 16:24 36 Capillary Refill : Less Than 3 Seconds General Appearance: No Apparent Distress Respiratory: Lungs Clear, No Respiratory Distress Cardiovascular: Regular Rate, Rhythm Gastrointestinal: Normal Bowel Sounds, Tenderness (mild, diffuse) Neurologic/Psychiatric: Alert, Oriented x3 Results/Procedures Lab Laboratory Tests 12/23/22 04:00 Patient resulted labs reviewed. 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
[2022-12-23] MEDS: DIGOXIN 0.25 MG TABLET PO SCH (09:27)
[2022-12-23] MEDS: busPIRone 15 MG TABLET PO SCH ×2 (09:27→20:58)
[2022-12-23] MEDS: CITALOPRAM 20 MG TABLET PO SCH (09:27)
[2022-12-23] MEDS: lamoTRIgine 25 MG TABLET PO SCH (09:27)
[2022-12-23] MEDS: PRIMIDONE 250MG TABLET PO SCH ×2 (09:27→20:58)
[2022-12-23] MEDS: EMPAGLIFLOZIN 10 MG TABLET PO SCH (09:27)
[2022-12-23] MEDS: COLESTIPOL 1 GM TABLET PO SCH ×2 (09:29→20:57)
[2022-12-23] MEDS: DOCUSATE SODIUM 100 MG CAPSULE PO SCH ×2 (09:40→20:58)
[2022-12-23] MEDS: SENNOSIDES 8.6 MG TABLET PO SCH ×2 (09:40→20:57)
[2022-12-23] MEDS: MILK OF MAGNESIA 400 MG/5 ML 30 ML UDC PO PRN (11:32)
[2022-12-23] MEDS: ONDANSETRON INJECTION 4 MG/2 ML (SDV) IV PRN (11:33)
--- NOTE | 2022-12-23 12:43 | Tele-ICU Progress Note ---
Subjective Date Seen by a Provider: Dec 23, 2022 Time Seen by a Provider: 12:43 Subjective/Events-last exam (Tele-ICU Physician , Progress Note ) Service provided via interactive audio and video telecommunications E-CARE system to a patient admitted to ICU bed in [facility]. Patient is seen today due to persistent need of ICU care Available chart/ vitals / labs / Images reviewed Video assessment done using teleICU camera, rest of exam as per RN Discussed with RN Events overnight : Afebrile hemodynamically stable Respiratory - 4L I/O =+ Drips: stopped Pressors- no Hospital course: (12/21) 67F Admitted for abdominal abscess, UTI-was already on treatment, Hypotension-prior to arrival A/P UTI/ chronic colonisation / ebterococcus - ? 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 Discussed with RN to reach out if any questions or concerns Case and care daily discussed on multidisciplinary rounds ( RN, PharmD, Event Specialist Food Demonstrator , Respiratory Therapy, photographic process worker ) A total of 20 minutes of critical care time was devoted to this patient today, required to treat and/or prevent further deterioration of critical care condition ( as above ) . I am remotely monitoring this patient from another state. I am unable to do the bedside exam, and history/physical and pertinent information is taken from other notes in the computer and bedside staff. Sepsis Event Evaluation Height, Weight, BMI Height: 5'4.00" Weight: 165lbs. 0.0oz. 72.077181xd; 23.33 BMI Method:Stated Focused Exam Lactate Level 12/21/22 11:42: Lactic Acid Level 1.73 Exam Exam Patient acknowledged, consented, and participated in this virtual visit which was conducted using real time audio/video Vital Signs Date Time Temp Pulse Resp B/P (MAP) Pulse Ox O2 Delivery O2 Flow Rate FiO2 12/23/22 12:22 64 12/23/22 12:00 76 17 77/57 (64) 95 Nasal Cannula 5.00 12/23/22 11:33 36.5 12/23/22 11:00 77 19 88/65 (73) 93 Nasal Cannula 5.00 12/23/22 10:36 95 Nasal Cannula 4.00 12/23/22 10:00 72 17 115/68 (84) 95 Nasal Cannula 5.00 12/23/22 09:00 78 19 111/61 (78) 94 Nasal Cannula 5.00 12/23/22 08:12 36.5 12/23/22 08:00 87 32 116/65 (82) 93 Nasal Cannula 5.00 12/23/22 08:00 94 Nasal Cannula 5.00 12/23/22 07:32 94 12/23/22 07:14 92 Nasal Cannula 4.00 12/23/22 07:13 92 Nasal Cannula 4.00 12/23/22 07:05 92 Nasal Cannula 4.00 12/23/22 07:00 74 23 104/63 (77) 95 Nasal Cannula 5.00 12/23/22 06:00 78 19 116/74 (88) 94 Nasal Cannula 5.00 12/23/22 05:00 72 18 111/65 (87) 93 Nasal Cannula 5.00 12/23/22 04:15 92 Nasal Cannula 5.00 12/23/22 04:00 36.6 71 22 112/60 (81) 93 Nasal Cannula 5.00 12/23/22 03:00 68 16 104/55 (79) 92 Nasal Cannula 6.00 12/23/22 02:00 63 19 108/60 (82) 94 Nasal Cannula 6.00 12/23/22 01:00 68 20 99/58 (78) 93 Nasal Cannula 4.00 12/23/22 01:00 63 12/23/22 00:06 91 Nasal Cannula 4.00 12/23/22 00:00 36.2 73 20 106/56 (75) 88 Nasal Cannula 4.00 12/22/22 23:00 73 22 106/64 (83) 94 Nasal Cannula 4.00 12/22/22 22:00 72 18 116/62 (80) 94 Nasal Cannula 4.00 12/22/22 21:00 72 24 104/55 (80) 94 Nasal Cannula 4.00 12/22/22 20:15 92 Nasal Cannula 4.00 12/22/22 20:00 83 17 98/58 (73) 95 Nasal Cannula 4.00 12/22/22 19:57 36.6 12/22/22 19:30 80 15 87 Nasal Cannula 4.00 12/22/22 19:26 74 18 104/66 (90) 12/22/22 19:09 95 Nasal Cannula 4.00 12/22/22 19:00 74 12/22/22 18:00 72 10 106/58 (73) 94 Nasal Cannula 4.00 12/22/22 17:00 78 20 106/64 (84) 93 Nasal Cannula 4.00 12/22/22 16:00 67 15 103/70 (72) 93 Nasal Cannula 4.00 12/22/22 16:00 95 Nasal Cannula 4.00 12/22/22 15:59 95 Nasal Cannula 4.00 12/22/22 15:00 68 19 97/64 (78) 95 Nasal Cannula 4.00 12/22/22 14:00 66 20 95/60 (72) 94 Nasal Cannula 4.00 12/22/22 13:00 71 34 85/52 (68) 93 Nasal Cannula 4.00 I & O 12/23/22 07:00 Intake Total 2240 ml Output Total 2250 ml Balance -10 ml Height & Weight Height: 5'4.00" Weight: 165lbs. 0.0oz. 72.736028uw; 23.33 BMI Method:Stated General Appearance: No Apparent Distress, Chronically ill HEENT: PERRL/EOMI, TMs Normal, Normal ENT Inspection, Pharynx Normal Neck: Normal Inspection Respiratory: Chest Non Tender, No Accessory Muscle Use, No Respiratory Distress, Crackles, Wheezing Cardiovascular: Regular Rate, Rhythm, No Edema, No Murmur Capillary Refill: Less Than 3 Seconds Extremity: No Pedal Edema Neurologic/Psychiatric: Alert, Oriented x3 Skin: Normal Color, Warm/Dry Results Lab Laboratory Tests 12/22/22 04:30 12/23/22 04:00 Assessment/Plan Assessment/Plan 1 HANNAH FELICIANO MD Dec 23, 2022 12:43
[2022-12-23] MEDS: DAPTOMYCIN IV SCH (14:38)
[2022-12-23] MEDS: NS IV SCH (14:38)
[2022-12-23] MEDS ORDERED: TROUGH ORDER-PHARMACY XX NR (15:00)
[2022-12-23] MEDS ORDERED: TROUGH ORDER-PHARMACY XX ONE (15:00)
[2022-12-23] MEDS ORDERED: DIATRIZOATE MEGLUM/SODIUM 37% 120 ML (GASTROGRAFIN) PO ONE (15:30)
--- NOTE | 2022-12-23 15:49 | Diagnostic Imaging Report ---
PROCEDURE: CT abdomen and pelvis without contrast. TECHNIQUE: Multiple contiguous axial images were obtained through the abdomen and pelvis without the use of intravenous contrast. Auto Exposure Controls were utilized during the CT exam to meet ALARA standards for radiation dose reduction. INDICATION: Pelvic abscess There has been increase in coarse bilateral basilar infiltrate. Unenhanced images of liver, pancreas, adrenal glands and spleen are otherwise unremarkable. There is minimal punctate calcification in the midportion of the right kidney however there is no hydronephrosis. There is significant artifact from bilateral hip prostheses which limits evaluation of the pelvis. Right lower quadrant ostomy has stable appearance without evidence of obstruction. There is increased density in the right adnexal region which could result in mass effect on the right ureter. Again this is somewhat difficult to characterize due to artifact and absence of intravenous contrast. IMPRESSION: Apparent right adnexal region mass measuring approximately 2 x 3 cm may result in extrinsic compression on the right ureter. Possibility of abscess or adenopathy is not excluded. There has been increase in coarse infiltrates in the lung bases which may be due to pneumonitis or pneumonia. Complete evaluation of pelvis is significantly limited due to artifact from metallic hip prostheses. Dictated by: Dictated on workstation # [id number]
[2022-12-23] MEDS: traZODone 150 MG (DESYREL) TABLET PO SCH (20:57)
[2022-12-23] MEDS: DONEPEZIL 10 MG TABLET PO SCH (20:58)
[2022-12-23] MEDS: LATANOPROST 0.005% OPHTH SOLN 2.5 ML OU SCH (20:58)
[2022-12-23] MEDS: MONTELUKAST 10 MG TABLET PO SCH (20:58)
[2022-12-24 04:48] LABS: BASOPHILS % (AUTO) 0 % (0-10); EOSINOPHILS # (AUTO) 0.2 10^3/uL (0.0-0.3); EOSINOPHILS % (AUTO) 5 % (0-10); HEMOGLOBIN 10.7 g/dL (11.5-16.0); NEUTROPHILS # (AUTO) 1.9 10^3/uL (1.8-7.8); PLATELET COUNT 123 10^3/uL (130-400)
[2022-12-24 04:50] LABS: HEMATOCRIT 34 % (35-52); LYMPHOCYTES # (AUTO) 1.3 10^3/uL (1.0-4.0); LYMPHOCYTES % (AUTO) 33 % (12-44); MEAN CORPUSCULAR HEMOGLOBIN 28 pg (25-34); MEAN CORPUSCULAR HGB CONC 31 g/dL (32-36); MEAN CORPUSCULAR VOLUME 90 fL (80-99); MEAN PLATELET VOLUME 10.9 fL (9.0-12.2); MONOCYTES # (AUTO) 0.5 10^3/uL (0.0-1.0); MONOCYTES % (AUTO) 13 % (0-12); NEUTROPHILS % (AUTO) 49 % (42-75); WHITE BLOOD COUNT 3.9 10^3/uL (4.3-11.0)
[2022-12-24 05:12] LABS: ALBUMIN 3.1 GM/DL (3.2-4.5); BILIRUBIN,TOTAL 0.2 MG/DL (0.1-1.0); CALCIUM 8.9 MG/DL (8.5-10.1); CREATININE SERUM 0.49 MG/DL (0.60-1.30); POTASSIUM 4.6 MMOL/L (3.6-5.0); TOTAL PROTEIN 5.5 GM/DL (6.4-8.2)
[2022-12-24] MEDS: POTASSIUM CL 10MEQ/50ML IVPB 50 ML IV SCH (05:27)
[2022-12-24] MEDS: POTASSIUM CHLORIDE 20 MEQ TABLET PO SCH (05:28)
[2022-12-24] MEDS: MAGNESIUM 1 GM/100 ML IVPB 100 ML IV SCH (06:07)
[2022-12-24] MEDS: MEROPENEM INJECTION 500 MG in NS (IVPB) 100 ML 100 ML IV SCH ×3 (06:08→22:33)
[2022-12-24] MEDS: PANTOPRAZOLE 40 MG TABLET PO SCH (06:08)
[2022-12-24] MEDS: RT-Ipratropium/Albuterol NEB 3 ML VIAL INH SCH ×3 (06:55→21:22)
[2022-12-24] MEDS: TIOTROPIUM INH 4 GM (SPIRIVA Respimat) IH SCH (06:57)
[2022-12-24] MEDS: FLUTICASONE/VILANTEROL 100/25 MCG (7 DOSES) IH SCH (06:57)
[2022-12-24] MEDS: MUPIROCIN 2% OINTMENT 22 GM TUBE NSEACH SCH ×2 (10:34→20:03)
[2022-12-24] MEDS: DOCUSATE SODIUM 100 MG CAPSULE PO SCH ×2 (10:35→20:02)
[2022-12-24] MEDS: CYPROHEPTADINE 4 MG TABLET PO SCH ×3 (10:37→20:02)
[2022-12-24] MEDS: rOPINIRole 1 MG TABLET PO SCH ×2 (10:37→20:02)
[2022-12-24] MEDS: MELOXICAM 7.5 MG TABLET PO SCH (10:38)
[2022-12-24] MEDS: busPIRone 15 MG TABLET PO SCH ×2 (10:39→20:02)
[2022-12-24] MEDS: PRIMIDONE 250MG TABLET PO SCH ×2 (10:39→20:02)
[2022-12-24] MEDS: MILK OF MAGNESIA 400 MG/5 ML 30 ML UDC PO PRN (10:39)
[2022-12-24] MEDS: DIGOXIN 0.25 MG TABLET PO SCH (10:39)
[2022-12-24] MEDS: COLESTIPOL 1 GM TABLET PO SCH ×2 (10:40→22:13)
[2022-12-24] MEDS: FLUTICASONE NASAL SPRAY (120 SPRAYS) NS SCH (10:40)
[2022-12-24] MEDS: CITALOPRAM 20 MG TABLET PO SCH (10:41)
[2022-12-24] MEDS: clonazePAM 1 MG TABLET PO SCH ×2 (10:41→20:02)
[2022-12-24] MEDS: EMPAGLIFLOZIN 10 MG TABLET PO SCH (10:41)
[2022-12-24] MEDS: lamoTRIgine 25 MG TABLET PO SCH (10:42)
[2022-12-24] MEDS: LIDOCAINE 4% PATCH TOP SCH (10:42)
[2022-12-24] MEDS: SENNOSIDES 8.6 MG TABLET PO SCH ×2 (10:42→20:03)
[2022-12-24] MEDS: morphine INJ 4 MG/ML 1 ML (VIAL/SYRINGE) IV PRN ×3 (10:46→19:57)
--- NOTE | 2022-12-24 11:08 | Progress Note - Hospitalist ---
Subjective HPI/CC On Admission Date Seen by Provider: Dec 24, 2022 Patient is a 67 yo F with PMH of COPD, IBS, bladder cancer and CAD that presents with general fatigue, abdominal pain and low blood pressure for the past one to two months. She reports that her abdominal pain has been increasing in intensity, especially the past week, and is a diffuse sharp pain that she says is a 10/10. She reports having lots of diarrhea the past few weeks and has now been constipated the past three days but says it is worse than her normal BM with IBS. She also reports around a 40 lbs weight loss in the same time period. She feels as though she is always tired and has no energy and has been sleeping more. She reports her BP at home runs low around 90's/50's. She was at [facility] 3 days ago where they treated her for a UTI. She also reports a cough and feeling nauseous. She denies chills, diarrhea, dizziness, vomiting. At home she is on 4 L of oxygen. Subjective/Events-last exam Pt reports still having abd pain. Feels constipated. No BM since she has been here. Focused Exam Lactate Level 12/21/22 11:42: Lactic Acid Level 1.73 Objective Exam Vital Signs Vital Signs Date Time Temp Pulse Resp B/P (MAP) Pulse Ox O2 Delivery O2 Flow Rate FiO2 12/24/22 10:46 36.6 12/24/22 10:17 93 Nasal Cannula 5.00 12/24/22 10:00 77 12 119/69 (86) 12/21/22 16:24 36 Capillary Refill : Less Than 3 Seconds General Appearance: No Apparent Distress, Chronically ill, Thin Respiratory: Lungs Clear, No Respiratory Distress Cardiovascular: Regular Rate, Rhythm Gastrointestinal: Normal Bowel Sounds, Non Tender Neurologic/Psychiatric: Alert, Oriented x3 Results/Procedures Lab Laboratory Tests 12/24/22 03:42 12/24/22 03:43 Patient resulted labs reviewed. 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
[2022-12-24] MEDS ORDERED: BISACODYL 10 MG SUPPOSITORY PR PRN (11:15)
[2022-12-24] MEDS: FLUDROCORTISONE 0.1 MG TABLET PO SCH (11:21)
--- NOTE | 2022-12-24 11:42 | Consultation - Surgery ---
JESUS HOWARD 12/24/22 1142: History of Present Illness History of Present Illness Patient Consulted On(katia/time) 12/24/22 11:33 Date Seen by Provider: Dec 24, 2022 Time Seen by Provider: 11:34 History of Present Illness We were consulted on this pt due to the 12/21 abd/pelvis CT showing "fluid collection in the pelvis which has some internal air measuring about 8 x 4.4 cm in size." Upon reviewing the subsequent abd/pelvis CT on 12/23, there appears to be no visual fluid collection remaining and no reference to one on the report. Pt was brought here on Friday due to abd pain. Pt reports diffuse abd pain, worse in LLQ and periumbilical. Pt reports she has been having abd pain for the past month. Pt then reports she stopped eating solid foods a month ago and has lost 40lbs in the past month. Pt reports having nausea since Friday and reports consistent urges to vomit since then, but she claims her hiatal hernia prevents her from being able to vomit. Pt reports having a rock-hard BM a few hours ago but usually has frequent diarrhea that runs down her leg. Pt does not know if she has had blood in her stool because she does not look at it. Allergies and Home Medications Allergies Coded Allergies: bacitracin (Verified Allergy, Intermediate, "I BREAK OUT IN A RASH ALL OVER.", 04/02/22) neomycin (Verified Allergy, Intermediate, "I BREAK OUT IN A RASH ALL OVER.", 04/02/22) polymyxin B (Verified Allergy, Intermediate, "I BREAK OUT IN A RASH ALL OVER.", 04/02/22) ibuprofen (Verified Allergy, Mild, RASH, 04/02/22) naproxen (Verified Allergy, Mild, RASH, 04/02/22) strawberry (Verified Allergy, Mild, 04/02/22) sulfamethoxazole (Verified Allergy, Unknown, 04/02/22) tramadol (Verified Allergy, Unknown, Has rec lortab & oxycodone in the past, 06/21/22) trimethoprim (Verified Allergy, Unknown, 04/02/22) Patient Home Medication List Albuterol Sulfate (Proventil Hfa) 90 Mcg Hfa.aer.ad, 2 PUFF INH Q6H PRN for WHEEZING, (Reported) Entered as Reported by: MICHAEL GARZA on 03/19/22856 Last Action: Held Alosetron HCl (Alosetron HCl) 0.5 Mg Tablet, 0.5 MG PO BID, (Reported) Entered as Reported by: MICHAEL GARZA on 03/19/22856 Last Action: Converted Apixaban (Eliquis) 5 Mg Tablet, 5 MG PO BID, (Reported) Entered as Reported by: GRETA MANCILLA on 07/11/17 1530 Last Action: Held Buspirone HCl (Buspirone HCl) 15 Mg Tablet, 15 MG PO BID Prescribed by: SUMAN HEALY on 12/21/221641 Last Action: Continued Clonazepam (Clonazepam) 1 Mg Tablet, 1 MG PO BID, (Reported) Entered as Reported by: JAMIE GOVEA on 04/20/19 1024 Last Action: Continued Colestipol HCl (Colestipol HCl) 1 Gram Tablet, 1 GM PO BID Prescribed by: SUMAN HEALY on 12/21/221641 Last Action: Continued Cyproheptadine HCl (Cyproheptadine HCl) 4 Mg Tablet, 4 MG PO TID Prescribed by: SUMAN HEALY on 12/21/221641 Last Action: Converted Dapagliflozin Propanediol (Farxiga) 5 Mg Tablet, 5 MG PO DAILY, (Reported) Entered as Reported by: GRETA MANCILLA on 05/21/18 1455 Last Action: Converted Denosumab (Prolia) 60 Mg/Ml Disp.syrin, 60 MG SQ NEEDED Prescribed by: SUMAN HEALY on 12/21/221641 Last Action: Held Digoxin (Digoxin) 250 Mcg (0.25 Mg) Tablet, 250 MCG PO DAILY Prescribed by: SUMAN HEALY on 12/21/221641 Last Action: Continued Diltiazem HCl (Diltiazem HCl) 90 Mg Tablet, 90 MG PO TID, (Reported) Entered as Reported by: SERENITY COPELAND on 11/08/21 1132 Last Action: Reviewed Diphenoxylate HCl/Atropine (Lomotil 2.5-0.025 mg Tablet) 2.5 Mg-0.025 Mg Tablet, 1 EACH PO TID Prescribed by: SUMAN HEALY on 12/21/221651 Last Action: Held Donepezil HCl (Aricept) 10 Mg Tablet, 10 MG PO HS Prescribed by: SUMAN HEALY on 12/21/221641 Last Action: Continued Eluxadoline (Viberzi) 75 Mg Tablet, 75 MG PO BID, (Reported) Entered as Reported by: MICHAEL GARZA on 03/19/22856 Last Action: Converted Epinephrine (Epipen) 0.3 Mg/0.3 Ml Auto.injct, 0.3 MG IJ PRN, (Reported) Entered as Reported by: MICHAEL GARZA on 03/19/22856 Last Action: Held Erenumab-Aooe (Aimovig Autoinjector) 70 Mg/1 Ml Auto.injct, 70 MG MONTHLY, (Reported) Entered as Reported by: SERENITY COPELAND on 12/30/191727 Last Action: Held Escitalopram Oxalate (Lexapro) 10 Mg Tablet, 10 MG PO DAILY Prescribed by: SUMAN HEALY on 12/21/221641 Last Action: Converted Fludrocortisone Acetate (Fludrocortisone Acetate) 0.1 Mg Tab, 0.1 MG PO EVERY OTHER DAY, (Reported) Entered as Reported by: SERENITY COEPLAND on 11/08/21 113 Last Action: Continued Fluticasone Furoate (Flonase Sensimist) 27.5 Mcg/Actuation [place].susp, 2 SPRAYS NSEACH DAILY, (Reported) Entered as Reported by: MICHAEL GARZA on 03/19/22856 Last Action: Converted Fluticasone/Umeclidin/Vilanter (Trelegy Ellipta 100-62.5-25) 100-62.5 Blst.w.dev, 1 EACH IH DAILY Prescribed by: SUMAN HEALY on 12/21/221641 Last Action: Converted Gentamicin Sulfate (Gentamicin Sulfate) 0.3 % Drops, 5 ML OP DAILY Prescribed by: SUMAN HEALY on 12/21/221641 Last Action: Continued Hydrocodone/Acetaminophen (Hydrocodone-Acetamin 5-325 mg) 5 Mg-325 Mg Tablet, 1 TAB PO Q4H PRN for PAIN-MODERATE (5-7) Prescribed by: Angela Mcgovern on 07/31/22 1529 Last Action: Held Ipratropium/Albuterol Sulfate (Iprat-Albut 0.5-3(2.5) mg/3 ml) 0.5 Mg-3 Mg (2.5 Mg Base)/3 Ml Ampul.neb, 3 ML IH Q6H PRN for SHORTNESS OF BREATH, (Reported) Entered as Reported by: MICHAEL GARZA on 03/19/22856 Last Action: Held Isosorbide Mononitrate (Isosorbide Mononitrate ER) 120 Mg Tab.er.24h, 120 MG PO DAILY Prescribed by: SUMAN HEALY on 12/21/221641 Last Action: Reviewed Lamotrigine (Lamotrigine) 25 Mg Tablet, 25 MG PO DAILY Prescribed by: SUMAN HEALY on 12/21/221641 Last Action: Continued Latanoprost (Xalatan) 0.005 % Drops, 1 DROP OU HS, (Reported) Entered as Reported by: SERENITY COPELAND on 11/08/211131 Last Action: Continued Lidocaine (Lidocaine) 4 % Adh..patch, 1 EACH TP DAILY, (Reported) Entered as Reported by: MICHAEL GARZA on 03/19/22856 Last Action: Converted Meclizine HCl (Meclizine HCl) 25 Mg Tablet, 25 MG PO Q8H PRN for DIZZINESS, (Reported) Entered as Reported by: JESSICA GILMORE on 02/28/21 1353 Last Action: Held Meloxicam (Meloxicam) 15 Mg Tablet, 15 MG PO DAILY Prescribed by: SUMAN HEALY on 12/21/221641 Last Action: Converted Montelukast Sodium (Montelukast Sodium) 10 Mg Tablet, 10 MG PO HS, (Reported) Entered as Reported by: SERENITY COPELAND on 11/08/21 121 Last Action: Continued Naloxone HCl (Narcan) 4 Mg/Actuation [place], 4 MG NS PRN, (Reported) Entered as Reported by: MICHAEL GARZA on 03/19/22856 Last Action: Held Nitroglycerin (Nitroglycerin) 0.4 Mg Tab.subl, 0.4 MG SL UD PRN for CHEST PAIN (ANGINA), (Reported) Entered as Reported by: SERENITY COPELAND on 11/08/211131 Last Action: Held Pantoprazole Sodium (Pantoprazole Sodium) 40 Mg Tablet.dr, 40 MG PO DAILY, (Reported) Entered as Reported by: MICHAEL GARZA on 03/19/22856 Last Action: Continued Primidone (Mysoline) 250 Mg Tablet, 250 MG PO BID, (Reported) Entered as Reported by: MICHAEL GARZA on 03/19/22856 Last Action: Continued Ropinirole HCl (Ropinirole HCl) 2 Mg Tablet, 2 MG PO BID Prescribed by: SUMAN HEALY on 12/21/221641 Last Action: Converted Rosuvastatin Calcium (Rosuvastatin Calcium) 20 Mg Tablet, 20 MG PO DAILY, (Reported) Entered as Reported by: SERENITY COPELAND on 11/08/211131 Last Action: Continued Sennosides (Senna) 8.6 Mg Tablet, 8.6 MG PO DAILY Prescribed by: SUMAN HEALY on 12/21/221641 Last Action: Held Sumatriptan Succinate (Sumatriptan Succinate) 25 Mg Tablet, 25 MG PO PRN Prescribed by: SUMAN HEALY on 12/21/221641 Last Action: Held Tizanidine HCl (Tizanidine HCl) 2 Mg Capsule, 2 MG PO DAILY Prescribed by: SUMAN HEALY on 12/21/221641 Last Action: Converted Trazodone HCl (Trazodone HCl) 150 Mg Tablet, 150 MG PO HS Prescribed by: SUMAN HEALY on 12/21/221641 Last Action: Continued Discontinued Medications Benzonatate (Tessalon Perles) 100 Mg Capsule, 200 MG PO Q8H PRN for cough Discontinued Reason: No Longer Taking Prescribed by: GINA GUTIERREZ on 02/10/22 161 Last Action: Discontinued Budesonide/Glycopyr/Formoterol (Breztri Aerosphere Inhaler) 160 Mcg-9 Mcg-4.8 Mcg/Actuation Hfa.aer.ad, 10.7 GM IH BID Discontinued Reason: No Longer Taking Prescribed by: SUMAN HEALY on 12/21/221641 Last Action: Discontinued Cyclobenzaprine HCl (Cyclobenzaprine HCl) 10 Mg Tablet, 10 MG PO TID PRN for SPASMS, (Reported) Discontinued Reason: No Longer Taking Entered as Reported by: MICHAEL GARZA on 03/19/22856 Last Action: Discontinued Dicyclomine HCl (Dicyclomine HCl) 20 Mg Tablet, 20 MG PO QID Discontinued Reason: No Longer Taking Prescribed by: ANTWAN PINEDA on 12/17/22 1241 Last Action: Discontinued Ertapenem Sodium (Ertapenem) 1 Gram Vial, 1 GM IM DAILY Discontinued Reason: No Longer Taking Prescribed by: BAYLEE WHITE on 04/03/22 1029 Last Action: Discontinued Gabapentin (Neurontin) 300 Mg Capsule, 900 MG PO TID, (Reported) Discontinued Reason: No Longer Taking Entered as Reported by: RADHA KATHLEEN on 04/03/22 1101 Last Action: Discontinued Hydrocodone/Acetaminophen (Hydrocodone-Acetamin 5-325 mg) 5 Mg-325 Mg Tablet, 1 TAB PO Q6H PRN for PAIN-MODERATE (5-7) Discontinued Reason: No Longer Taking Prescribed by: GINA GUTIERREZ on 08/17/22 1222 Last Action: Discontinued Hydrocodone/Acetaminophen (Hydrocodone-Acetamin 5-325 mg) 5 Mg-325 Mg Tablet, 1 TAB PO Q4H PRN for PAIN-MODERATE (5-7) Discontinued Reason: No Longer Taking Prescribed by: Angela Mcgovern on 09/08/22 1306 Last Action: Discontinued Hydrocodone/Acetaminophen (Hydrocodone-Acetamin 5-325 mg) 5 Mg-325 Mg Tablet, 1 TAB PO Q4H PRN for PAIN-MODERATE (5-7) Discontinued Reason: No Longer Taking Prescribed by: ANTWAN PINEDA on 12/17/22 1242 Last Action: Discontinued Levocetirizine Dihydrochloride (Levocetirizine Dihydrochloride) 5 Mg Tablet, 5 MG PO DAILY, (Reported) Discontinued Reason: No Longer Taking Entered as Reported by: URSZULA BELL on 05/14/18 0828 Last Action: Discontinued Lipase/Protease/Amylase (Zenpep Dr 40,000 Units Capsule) 40-126-168 Capsule.dr, 2 EACH PO TID, (Reported) Discontinued Reason: No Longer Taking Entered as Reported by: MICHAEL GARZA on 03/19/22 0857 Last Action: Discontinued Memantine HCl (Memantine HCl) 10 Mg Tablet, 10 MG PO DAILY, (Reported) Discontinued Reason: No Longer Taking Entered as Reported by: BIENVENIDO FARRELL on 07/28/15 1444 Last Action: Discontinued Nicotine (Nicotrol) 10 Mg Cartridge, INHALER NS UD PRN for SMOKING CESSATION, (Reported) Discontinued Reason: No Longer Taking Entered as Reported by: SERENITY COPELAND on 11/08/21 1132 Last Action: Discontinued Oxycodone HCl (Roxicodone) 15 Mg Tablet, 15 MG PO Q6H PRN for PAIN-SEVERE (8-10) Discontinued Reason: No Longer Taking Prescribed by: BAYLEE WHITE on 06/21/22 1200 Last Action: Discontinued Suvorexant (Belsomra) 10 Mg Tablet, 10 MG PO HS, (Reported) Discontinued Reason: No Longer Taking Entered as Reported by: MICHAEL GARZA on 03/19/22 0857 Last Action: Discontinued Tiotropium Br/Olodaterol HCl (Stiolto Respimat Inhal [place]) 2.5 Mcg-2.5 Mcg/Actuation Mist.inhal, 4 GM IH DAILY, (Reported) Discontinued Reason: No Longer Taking Entered as Reported by: RADHA KATHLEEN on 04/03/22 1106 Last Action: Discontinued Trazodone HCl (Trazodone HCl) 100 Mg Tablet, 100 MG PO HS, (Reported) Discontinued Reason: No Longer Taking Entered as Reported by: MICHAEL GARZA on 03/19/22856 Last Action: Discontinued Past Angidht-Csjmin-Vqcdro Hx Patient Social History Number of Drinks Today: 0 Smoking Status: Current Everyday Smoker Cigarettes Per Day: 2 Former Smoker, Quit: Dec 28, 2020 Type Used: Cigarettes 2nd Hand Smoke Exposure: Yes Recent Hopitalizations: Yes (month before last for low BP) Alcohol Use?: No Have you traveled recently?: No Immunizations Up To Date Tetanus Booster (TDap): Unknown PED Vaccines UTD: No Date of Pneumonia Vaccine: Jan 11, 2019 Date of Influenza Vaccine: Jan 31, 2022 Seasonal Allergies Seasonal Allergies: Yes Surgeries History of Surgeries: Yes (NECK, HIATAL HERNIA, CARDIAC ABLATION, BILAT ELBOW, BILAT CTR, BLADDER SLIN) Surgeries: Cystectomy (urostomy), Gallbladder (cholecystectomy 1969), Orthopedic (4 neck, 4 hand, wrist), Pancreatic (says she's had several pancreatic surgeries but does not know what) Respiratory History of Respiratory Disorde: Yes (HOME ) Respiratory Disorders: COPD, Emphysema Cardiovascular History of Cardiac Disorders: Yes (CARDIAC ABLATION 2015) Cardiac Disorders: High Cholesterol, Irregular Heartbeat, Palpitations Neurological History of Neurological Disord: Yes (PARESTHESIAS OF BILAT LOWER EXT DUE TO FORAMINAL STENOSIS) Neurological Disorders: Seizure Disorder (2 seizures, one after having bladder removed), TIA 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 System Hx 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 Disorders: No Sexually Transmitted Disease: No HIV/AIDS: No 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 Disorders: 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 Genitourinary History of Genitourinary Disor: Yes Genitourinary Disorders: UTI-Chronic Gastrointestinal History of Gastrointestinal Di: Yes (FREQ DIARRHEA, DYSPHAGIA) Gastrointestinal Disorders: Gastroesophageal Reflux, Chronic Diarrhea Musculoskeletal History of Musculoskeletal Dis: Yes (CERVICAL SUGERY) Musculoskeletal Disorders: Arthritis, Back Injury Endocrine History of Endocrine Disorders: Yes (DIET CONTROLLED NIDDM--NO LONGER ON MEDICATIONS; THYROID NODULES) Endocrine Disorders: Diabetes, Non-Insulin dep (T2DM) HEENT History of HEENT Disorders: Yes (LEFT EAR HEARING IMPAIRMENT) HEENT Disorders: Cataract Loss of Vision: Denies Hearing Impairment: Hard of Hearing Cancer History of Cancer: Yes Cancer: Bladder (thinks transitional cell, had cystectomy), Skin (on left elbow, does not know which kind) Psychosocial History of Psychiatric Problem: No Behavioral Health Disorders: Anxiety, Depression Integumentary History of Skin or Integumenta: No Skin/Integumentary Disorders: Psoriasis Blood Transfusions History of Blood Disorders: No Adverse Reaction to a Blood Tr: No Family Medical History Significant Family History: No Pertinent Family Hx, Heart Disease (mom, dad, brother), Cancer (mom breast, dad brain, estranged from family now, does not know if any others), Diabetes (mom, dad, brother), Hypertension (mom, dad, brother) Family Medial History: Cardiovascular disease G8 BROTHER (TRIPLE BYPASS) Diabetes mellitus 19 MOTHER FH: COPD (chronic obstructive pulmonary disease) 19 MOTHER FH: breast cancer 19 MOTHER FHx: brain cancer 19 FATHER Review of Systems-General Constitutional: chills (friday night, not now), fever (friday night of 103, not currently), weight loss (40 lbs in last month) EENTM: hearing loss; No epistaxis Respiratory: cough (COPD and emphysema), short of breath (COPD, emphysema) Cardiovascular: chest pain (claims to have stabbing chest pain in upper left chest that has been going on for months); No palpitations Gastrointestinal: abdominal pain (diffuse, worse in LLQ and periumbilical), constipation (rock hard small BM today), diarrhea (typically has diarrhea other than this morning); No heartburn; loss of appetite (claims to hardly be able to eat anything right now); No vomiting Genitourinary: other (has urostomy) Musculoskeletal: joint pain (arthritis, hands, knees, back, shoulders painful) Skin: rash (psoriasis) Psychiatric/Neurological: Anxiety, Depressed Physical Exam-General Problems Physical Exam Vital Signs Vital Signs - First Documented 12/21/22 12/21/22 11:25 16:24 Temp 37.0 Pulse 74 Resp 17 B/P (MAP) 120/81 (94) Pulse Ox 93 O2 Delivery Nasal Cannula O2 Flow Rate 4.00 FiO2 36 Capillary Refill : Less Than 3 Seconds General Appearance: no apparent distress Neck: tender lateral (b/l upon palpation) Respiratory: no respiratory distress, no accessory muscle use, wheezing (expiratory) Cardiovascular: regular rate, rhythm (HR 94), no JVD, no murmur; No JVD Peripheral Pulses: 2+ Carotid (R), 2+ Carotid (L), 2+ Dorsalis Pedis (R), 2+ Left Dors-Pedis (L), 2+ Radial Pulses (R), 2+ Radial Pulses (L) Gastrointestinal: soft, no organomegaly; No distended, No guarding (voluntary or involuntary), No rebound; tenderness (light palpation to whole abd but worse in LLQ and perimbulical) Extremities: No pedal edema, No swelling (feet nor hands) Neurologic/Psychiatric: alert, oriented x 3 Skin: warm/dry, rash (psoriasis) Data Review Labs Laboratory Tests 12/24/22 03:42: Sodium Level 141, Potassium Level 4.6, Chloride Level 105, Carbon Dioxide Level 29, Anion Gap 7, Blood Urea Nitrogen 5L, Creatinine 0.49L, Estimat Glomerular Filtration Rate 102, BUN/Creatinine Ratio 10, Glucose Level 87, Calcium Level 8.9, Corrected Calcium 9.6, Magnesium Level 2.1, Total Bilirubin 0.2, Aspartate Amino Transf (AST/SGOT) 31, Alanine Aminotransferase (ALT/SGPT) 34, Alkaline Phosphatase 114, Total Protein 5.5L, Albumin 3.1L 12/24/22 03:43: White Blood Count 3.9L, Red Blood Count 3.83, Hemoglobin 10.7L, Hematocrit 34L, Mean Corpuscular Volume 90, Mean Corpuscular Hemoglobin 28, Mean Corpuscular Hemoglobin Concent 31L, Red Cell Distribution Width 13.2, Platelet Count 123L, Mean Platelet Volume 10.9, Immature Granulocyte % (Auto) 0, Neutrophils (%) (Auto) 49, Lymphocytes (%) (Auto) 33, Monocytes (%) (Auto) 13H, Eosinophils (%) (Auto) 5, Basophils (%) (Auto) 0, Neutrophils # (Auto) 1.9, Lymphocytes # (Auto) 1.3, Monocytes # (Auto) 0.5, Eosinophils # (Auto) 0.2, Basophils # (Auto) 0.0, Immature Granulocyte # (Auto) 0.0, Percent Immature Platelet Fraction 4.9 Microbiology 12/22/22 Gram Stain - Final, Resulted 12/22/22 Sputum Culture, Resulted Pending 12/21/22 Urine Culture - Preliminary, Resulted Enterococcus faecium Pseudomonas aeruginosa Susceptibility To Follow 12/21/22 Blood Culture - Preliminary, Resulted Assessment/Plan Assessment/Plan Assessment/Plan Diffuse abdominal pain Nausea Fluid collection in pelvis measuring 8 x 4.4 cm - resolved Urostomy. bladder cancer Weight loss Smoking, 2 cigarettes daily now but a 52 year history of 2-3 ppd The abd/pelvis CT on 12/21 showed a fluid collection with some air inside measuring 8 x 4.[address] on 12/23 unfortunately makes no mention of the fluid collection. There does not appear to be an abscess or surgical indication at this time. Will continue monitoring nausea and abd pain. Continue medical management of chronic conditions. CAPRI LEVINE DO 12/24/22 1401: History of Present Illness History of Present Illness Time Seen by Provider: 11:41 History of Present Illness Surgery asked to consult regarding possible pelvic abscess. HPI per ED: Patient is a 67-year-old female who presents ED with generalized weakness, recent UTI and low blood pressure. Patient with a history of IBS, COPD, coronary artery disease who presents to ED states not feeling well with increased tiredness and fatigue. She slept all day yesterday. She had some substernal chest pain yesterday without shortness of breath. She reports a daily cough. Patient states she is been having diarrhea over the past 2 months. History of IBS. No diarrhea over the past 2 days but states she has been taken Bentyl. Generalized abdominal discomfort cramping. She does have a urostomy. History of frequent urinary tract infections. Currently on Keflex for a UTI. She recently was seen at [facility]'s ER on the was discharged and follow-up with primary care physician. She states her blood pressure has been running in the 90s systolic at home. Not currently on blood pressure medication. She also reports a secondary headache. She denies of any unilateral muscle weakness or sensory changes. She had a recent urinary tract culture returned as E. coli, Morganella morganii,Enterococcus gallinarum. Patient denies vomiting, visual changes, unilateral muscle weakness or sensory changes, sore throat, ear pain When I spoke to pt today her main complaint was the pain; "it's never been like this before". She stated pain is usually on the right, "at urostomy", this is on the left. Rating pain as 7-8 out of 10. Allergies and Home Medications Allergies Coded Allergies: bacitracin (Verified Allergy, Intermediate, "I BREAK OUT IN A RASH ALL O LUCY.", 04/02/22) neomycin (Verified Allergy, Intermediate, "I BREAK OUT IN A RASH ALL OVER.", 04/02/22) polymyxin B (Verified Allergy, Intermediate, "I BREAK OUT IN A RASH ALL OVER.", 04/02/22) ibuprofen (Verified Allergy, Mild, RASH, 04/02/22) naproxen (Verified Allergy, Mild, RASH, 04/02/22) strawberry (Verified Allergy, Mild, 04/02/22) sulfamethoxazole (Verified Allergy, Unknown, 04/02/22) tramadol (Verified Allergy, Unknown, Has rec lortab & oxycodone in the pas t, 06/21/22) trimethoprim (Verified Allergy, Unknown, 04/02/22) Patient Home Medication List Home Medication List Reviewed: Yes Albuterol Sulfate (Proventil Hfa) 90 Mcg Hfa.aer.ad, 2 PUFF INH Q6H PRN for WHEEZING, (Reported) Entered as Reported by: MICHAEL GARZA on 03/19/22856 Last Action: Held Alosetron HCl (Alosetron HCl) 0.5 Mg Tablet, 0.5 MG PO BID, (Reported) Entered as Reported by: MICHAEL GARZA on 12/13/22 0857 Last Action: Converted Apixaban (Eliquis) 5 Mg Tablet, 5 MG PO BID, (Reported) Entered as Reported by: GRETA MANCILLA on 07/11/17 1530 Last Action: Held Buspirone HCl (Buspirone HCl) 15 Mg Tablet, 15 MG PO BID Prescribed by: SUMAN HEALY on 12/21/221641 Last Action: Continued Clonazepam (Clonazepam) 1 Mg Tablet, 1 MG PO BID, (Reported) Entered as Reported by: JAMIE GOVEA on 04/20/19 1024 Last Action: Continued Colestipol HCl (Colestipol HCl) 1 Gram Tablet, 1 GM PO BID Prescribed by: SUMAN HEALY on 12/21/221641 Last Action: Continued Cyproheptadine HCl (Cyproheptadine HCl) 4 Mg Tablet, 4 MG PO TID Prescribed by: SUMAN HEALY on 12/21/221641 Last Action: Converted Dapagliflozin Propanediol (Farxiga) 5 Mg Tablet, 5 MG PO DAILY, (Reported) Entered as Reported by: GRETA MANCILLA on 05/21/18 1455 Last Action: Converted Denosumab (Prolia) 60 Mg/Ml Disp.syrin, 60 MG SQ NEEDED Prescribed by: SUMAN HEALY on 12/21/221641 Last Action: Held Digoxin (Digoxin) 250 Mcg (0.25 Mg) Tablet, 250 MCG PO DAILY Prescribed by: SUMAN HEALY on 12/21/221641 Last Action: Continued Diltiazem HCl (Diltiazem HCl) 90 Mg Tablet, 90 MG PO TID, (Reported) Entered as Reported by: SERENITY COPELAND on 11/08/21 1132 Last Action: Reviewed Diphenoxylate HCl/Atropine (Lomotil 2.5-0.025 mg Tablet) 2.5 Mg-0.025 Mg Tablet, 1 EACH PO TID Prescribed by: SUMAN HEALY on 12/21/221651 Last Action: Held Donepezil HCl (Aricept) 10 Mg Tablet, 10 MG PO HS Prescribed by: SUMAN HEALY on 12/21/221641 Last Action: Continued Eluxadoline (Viberzi) 75 Mg Tablet, 75 MG PO BID, (Reported) Entered as Reported by: MICHAEL GARZA on 03/19/22856 Last Action: Converted Epinephrine (Epipen) 0.3 Mg/0.3 Ml Auto.injct, 0.3 MG IJ PRN, (Reported) Entered as Reported by: MICHAEL GARZA on 03/19/22856 Last Action: Held Erenumab-Aooe (Aimovig Autoinjector) 70 Mg/1 Ml Auto.injct, 70 MG MONTHLY, (Reported) Entered as Reported by: SERENITY COPELAND on 12/30/19 172 Last Action: Held Escitalopram Oxalate (Lexapro) 10 Mg Tablet, 10 MG PO DAILY Prescribed by: SUMAN HEALY on 12/21/221641 Last Action: Converted Fludrocortisone Acetate (Fludrocortisone Acetate) 0.1 Mg Tab, 0.1 MG PO EVERY OTHER DAY, (Reported) Entered as Reported by: SERENITY COPELAND on 11/08/21 113 Last Action: Continued Fluticasone Furoate (Flonase Sensimist) 27.5 Mcg/Actuation [place].susp, 2 SPRAYS NSEACH DAILY, (Reported) Entered as Reported by: MICHAEL GARZA on 03/19/22856 Last Action: Converted Fluticasone/Umeclidin/Vilanter (Trelegy Ellipta 100-62.5-25) 100-62.5 Blst.w. dev, 1 EACH IH DAILY Prescribed by: SUMAN HEALY on 12/21/221641 Last Action: Converted Gentamicin Sulfate (Gentamicin Sulfate) 0.3 % Drops, 5 ML OP DAILY Prescribed by: SUMAN HEALY on 12/21/221641 Last Action: Continued Hydrocodone/Acetaminophen (Hydrocodone-Acetamin 5-325 mg) 5 Mg-325 Mg Tablet, 1 TAB PO Q4H PRN for PAIN-MODERATE (5-7) Prescribed by: Angela Mcgovern on 07/31/22 1529 Last Action: Held Ipratropium/Albuterol Sulfate (Iprat-Albut 0.5-3(2.5) mg/3 ml) 0.5 Mg-3 Mg (2.5 Mg Base)/3 Ml Ampul.neb, 3 ML IH Q6H PRN for SHORTNESS OF BREATH, (Reported) Entered as Reported by: MICHAEL GARZA on 03/19/22856 Last Action: Held Isosorbide Mononitrate (Isosorbide Mononitrate ER) 120 Mg Tab.er.24h, 120 MG PO DAILY Prescribed by: SUMAN HEALY on 12/21/221641 Last Action: Reviewed Lamotrigine (Lamotrigine) 25 Mg Tablet, 25 MG PO DAILY Prescribed by: SUMAN HEALY on 12/21/221641 Last Action: Continued Latanoprost (Xalatan) 0.005 % Drops, 1 DROP OU HS, (Reported) Entered as Reported by: SERENITY COPELAND on 11/08/211131 Last Action: Continued Lidocaine (Lidocaine) 4 % Adh..patch, 1 EACH TP DAILY, (Reported) Entered as Reported by: MICHAEL GARZA on 03/19/22856 Last Action: Converted Meclizine HCl (Meclizine HCl) 25 Mg Tablet, 25 MG PO Q8H PRN for DIZZINESS, (Reported) Entered as Reported by: JESSICA GILMORE on 02/28/21 1353 Last Action: Held Meloxicam (Meloxicam) 15 Mg Tablet, 15 MG PO DAILY Prescribed by: SUMAN HEALY on 12/21/221641 Last Action: Converted Montelukast Sodium (Montelukast Sodium) 10 Mg Tablet, 10 MG PO HS, (Reported) Entered as Reported by: SERENITY COPELAND on 11/08/21 121 Last Action: Continued Naloxone HCl (Narcan) 4 Mg/Actuation [place], 4 MG NS PRN, (Reported) Entered as Reported by: MICHAEL GARZA on 03/19/22856 Last Action: Held Nitroglycerin (Nitroglycerin) 0.4 Mg Tab.subl, 0.4 MG SL UD PRN for CHEST PAIN (ANGINA), (Reported) Entered as Reported by: SERENITY COPELAND on 11/08/211131 Last Action: Held Pantoprazole Sodium (Pantoprazole Sodium) 40 Mg Tablet.dr, 40 MG PO DAILY, (Reported) Entered as Reported by: MICHAEL GARZA on 03/19/22856 Last Action: Continued Primidone (Mysoline) 250 Mg Tablet, 250 MG PO BID, (Reported) Entered as Reported by: MICHAEL GARZA on 03/19/22856 Last Action: Continued Ropinirole HCl (Ropinirole HCl) 2 Mg Tablet, 2 MG PO BID Prescribed by: SUMAN HEALY on 12/21/221641 Last Action: Converted Rosuvastatin Calcium (Rosuvastatin Calcium) 20 Mg Tablet, 20 MG PO DAILY, (Reported) Entered as Reported by: SERENITY COPELAND on 11/08/21 1132 Last Action: Continued Sennosides (Senna) 8.6 Mg Tablet, 8.6 MG PO DAILY Prescribed by: SUMAN HEALY on 12/21/221641 Last Action: Held Sumatriptan Succinate (Sumatriptan Succinate) 25 Mg Tablet, 25 MG PO PRN Prescribed by: SUMAN HEALY on 12/21/221641 Last Action: Held Tizanidine HCl (Tizanidine HCl) 2 Mg Capsule, 2 MG PO DAILY Prescribed by: SUMAN HEALY on 12/21/221641 Last Action: Converted Trazodone HCl (Trazodone HCl) 150 Mg Tablet, 150 MG PO HS Prescribed by: SUMAN HEALY on 12/21/221641 Last Action: Continued Discontinued Medications Benzonatate (Tessalon Perles) 100 Mg Capsule, 200 MG PO Q8H PRN for cough Discontinued Reason: No Longer Taking Prescribed by: GINA GUTIERREZ on 02/10/22 161 Last Action: Discontinued Budesonide/Glycopyr/Formoterol (Breztri Aerosphere Inhaler) 160 Mcg-9 Mcg-4.8 Mcg/Actuation Hfa.aer.ad, 10.7 GM IH BID Discontinued Reason: No Longer Taking Prescribed by: SUMAN HEALY on 12/21/221641 Last Action: Discontinued Cyclobenzaprine HCl (Cyclobenzaprine HCl) 10 Mg Tablet, 10 MG PO TID PRN for SPASMS, (Reported) Discontinued Reason: No Longer Taking Entered as Reported by: MICHAEL GARZA on 03/19/22 0857 Last Action: Discontinued Dicyclomine HCl (Dicyclomine HCl) 20 Mg Tablet, 20 MG PO QID Discontinued Reason: No Longer Taking Prescribed by: ANTWAN PINEDA on 12/17/22 1241 Last Action: Discontinued Ertapenem Sodium (Ertapenem) 1 Gram Vial, 1 GM IM DAILY Discontinued Reason: No Longer Taking Prescribed by: BAYLEE WHITE on 04/03/22 1029 Last Action: Discontinued Gabapentin (Neurontin) 300 Mg Capsule, 900 MG PO TID, (Reported) Discontinued Reason: No Longer Taking Entered as Reported by: RADHA KATHLEEN on 04/03/22 1101 Last Action: Discontinued Hydrocodone/Acetaminophen (Hydrocodone-Acetamin 5-325 mg) 5 Mg-325 Mg Tablet, 1 TAB PO Q6H PRN for PAIN-MODERATE (5-7) Discontinued Reason: No Longer Taking Prescribed by: GINA GUTIERREZ on 08/17/22 1222 Last Action: Discontinued Hydrocodone/Acetaminophen (Hydrocodone-Acetamin 5-325 mg) 5 Mg-325 Mg Tablet, 1 TAB PO Q4H PRN for PAIN-MODERATE (5-7) Discontinued Reason: No Longer Taking Prescribed by: Angela Mcgovern on 09/08/22 1306 Last Action: Discontinued Hydrocodone/Acetaminophen (Hydrocodone-Acetamin 5-325 mg) 5 Mg-325 Mg Tablet, 1 TAB PO Q4H PRN for PAIN-MODERATE (5-7) Discontinued Reason: No Longer Taking Prescribed by: ANTWAN PINEDA on 12/17/22 1242 Last Action: Discontinued Levocetirizine Dihydrochloride (Levocetirizine Dihydrochloride) 5 Mg Tablet, 5 MG PO DAILY, (Reported) Discontinued Reason: No Longer Taking Entered as Reported by: URSZULA BELL on 05/14/18 0828 Last Action: Discontinued Lipase/Protease/Amylase (Zenpep Dr 40,000 Units Capsule) 40-126-168 Capsule.dr, 2 EACH PO TID, (Reported) Discontinued Reason: No Longer Taking Entered as Reported by: MICHAEL GARZA on 03/19/22 0857 Last Action: Discontinued Memantine HCl (Memantine HCl) 10 Mg Tablet, 10 MG PO DAILY, (Reported) Discontinued Reason: No Longer Taking Entered as Reported by: BIENVENIDO FARRELL on 07/28/15 1444 Last Action: Discontinued Nicotine (Nicotrol) 10 Mg Cartridge, INHALER NS UD PRN for SMOKING CESSATION, (Reported) Discontinued Reason: No Longer Taking Entered as Reported by: SERENITY COPELAND on 11/08/21 1132 Last Action: Discontinued Oxycodone HCl (Roxicodone) 15 Mg Tablet, 15 MG PO Q6H PRN for PAIN-SEVERE (8-10) Discontinued Reason: No Longer Taking Prescribed by: BAYLEE WHITE on 06/21/22 1200 Last Action: Discontinued Suvorexant (Belsomra) 10 Mg Tablet, 10 MG PO HS, (Reported) Discontinued Reason: No Longer Taking Entered as Reported by: MICHAEL GARZA on 03/19/22 08 Last Action: Discontinued Tiotropium Br/Olodaterol HCl (Stiolto Respimat Inhal [place]) 2.5 Mcg-2.5 Mcg/Actuation Mist.inhal, 4 GM IH DAILY, (Reported) Discontinued Reason: No Longer Taking Entered as Reported by: RADHA KATHLEEN on 04/03/22 1106 Last Action: Discontinued Trazodone HCl (Trazodone HCl) 100 Mg Tablet, 100 MG PO HS, (Reported) Discontinued Reason: No Longer Taking Entered as Reported by: MICHAEL GARZA on 03/19/22856 Last Action: Discontinued Past Fopvytf-Ojkpct-Tzvubl Hx Patient Social History Smoking Status: Former Smoker Recent Hopitalizations: Yes (month before last for low BP) Surgeries History of Surgeries: Yes Surgeries: Cystectomy (with urostomy), Gallbladder (cholecystectomy 1969), Orthopedic (4 neck, 4 hand, wrist), Pancreatic (says she's had several pancreatic surgeries but does not know what) Respiratory History of Respiratory Disorde: Yes Respiratory Disorders: COPD, Emphysema Cardiovascular History of Cardiac Disorders: Yes Cardiac Disorders: High Cholesterol, Palpitations Neurological History of Neurological Disord: Yes Neurological Disorders: Seizure Disorder (2 seizures, one after having bladder removed), TIA 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 System 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 Disorders: Menstrual Problems Genitourinary History of Genitourinary Disor: Yes Genitourinary Disorders: UTI-Chronic Gastrointestinal History of Gastrointestinal Di: Yes Gastrointestinal Disorders: Gastroesophageal Reflux, Chronic Diarrhea Musculoskeletal History of Musculoskeletal Dis: Yes Musculoskeletal Disorders: Arthritis, Chronic Back Pain Endocrine History of Endocrine Disorders: Yes Endocrine Disorders: Diabetes, Non-Insulin dep (T2DM) HEENT History of HEENT Disorders: Yes HEENT Disorders: Cataract Hearing Impairment: Hard of Hearing Cancer History of Cancer: Yes Cancer: Bladder (thinks transitional cell, had cystectomy), Skin (on left elbow, does not know which kind) Psychosocial History of Psychiatric Problem: Yes Behavioral Health Disorders: Anxiety, Depression Integumentary History of Skin or Integumenta: Yes Skin/Integumentary Disorders: Psoriasis Family Medical History Significant Family History: Heart Disease (mom, dad, brother), Cancer (mom breast, dad brain, estranged from family now, does not know if any others), Diabetes (mom, dad, brother), Hypertension (mom, dad, brother) Family Medial History: Cardiovascular disease G8 BROTHER (TRIPLE BYPASS) Diabetes mellitus 19 MOTHER FH: COPD (chronic obstructive pulmonary disease) 19 MOTHER FH: breast cancer 19 MOTHER FHx: brain cancer 19 FATHER Review of Systems-General Constitutional: chills (friday night, not now), fever (friday night of 103, not currently), weight loss (40 lbs in last month) EENTM: hearing loss; No epistaxis Respiratory: cough (COPD and emphysema), short of breath (COPD, emphysema) Cardiovascular: chest pain (claims to have stabbing chest pain in upper left chest that has been going on for months), palpitations (nothing recent, has hx of palpitations) Gastrointestinal: abdominal pain (diffuse, worse in LLQ and periumbilical), constipation (rock hard small BM today), diarrhea (typically has diarrhea other than this morning); No heartburn; loss of appetite (claims to hardly be able to eat anything right now); No vomiting Genitourinary: No hematuria; other (has urostomy) Musculoskeletal: back pain, joint pain (arthritis, hands, knees, back, shoulders painful) Skin: rash (psoriasis) Psychiatric/Neurological: Anxiety, Depressed Physical Exam-General Problems Physical Exam General Appearance: mild distress (secondary), thin Eyes: Bilateral Eye PERRL, Bilateral Eye EOMI HEENT: pharynx normal; No scleral icterus (R), No scleral icterus (L) Neck: supple, tender lateral (b/l upon palpation) Respiratory: no respiratory distress, no accessory muscle use, decreased breath sounds (at bases), wheezing (expiratory) Cardiovascular: regular rate, rhythm (HR 94), no murmur Gastrointestinal: soft, no organomegaly; No distended; guarding (voluntary ); No rebound; tenderness (light palpation to whole abd but worse in LLQ and perimbulical) Rectal: deferred Extremities: no pedal edema, no calf tenderness, normal capillary refill Neurologic/Psychiatric: alert, oriented x 3 Skin: warm/dry, rash (psoriasis) Lymphatic: no adenopathy (neck or axilla) Data Review Radiology Date of Exam:12/21/22 CT ABDOMEN/PELVIS W PROCEDURE: CT abdomen and pelvis with contrast. TECHNIQUE: Multiple contiguous axial images were obtained through the abdomen and pelvis after administration of intravenous contrast. Auto Exposure Controls were utilized during the CT exam to meet ALARA standards for radiation dose reduction. All CT scans use one or more of the following dose optimizing techniques: automated exposure control, MA and/or KvP adjustment based on patient size and exam type or iterative reconstruction. INDICATION: Generalized abdominal pain. COMPARISON: 04/06/2022. FINDINGS: The heart is mildly large. There are airspace consolidations in the lung bases which appear improved since the prior study and may be chronic atelectasis and scarring. The liver demonstrates no focal lesions. There is mild intrahepatic biliary dilatation, similar to the prior study. The common bile duct is large. The pancreatic duct is mildly large and appears similar to the prior exam. The spleen appears normal. The pancreas demonstrates no masses or surrounding edema. The adrenal glands appear normal. The kidneys demonstrate no enhancing lesions. No hydroureter is seen. There has been prior surgery with urostomy and diversion of the ureters. There appears to be a fluid collection in the pelvis which has some internal air measuring about 8 x 4.4 cm in size. This is partially obscured by the hip implants. The bowel loops are nondistended without obstruction. There is streak artifact obscuring the pelvis due to the bilateral hip arthroplasties. No free fluid or free air is seen. The aorta has marked atherosclerosis but appears normal in caliber. There is moderate stool in the colon. No acute osseous abnormality is seen. IMPRESSION: 1. Post surgical changes from ureteral diversion and ileostomy. There appears to be a fluid collection in the pelvis but this is partially obscured by streak artifact from the bilateral hip implants. This could be due to an abscess. Distended fluid-filled bowel is in the differential. 2. Atelectasis and scarring in the lung bases. 3. Dilated common bile duct and pancreatic duct. This appears to be chronic. Dictated by: Dictated on workstation # [id number] Dict: 12/21/22 1235 Trans: 12/21/22 1543 [id number] Interpreted by: FAISAL SURESH MD Electronically signed by: FAISAL SURESH MD 12/21/22 1543 Date of Exam:12/23/22 CT ABDOMEN/PELVIS WO PROCEDURE: CT abdomen and pelvis without contrast. TECHNIQUE: Multiple contiguous axial images were obtained through the abdomen and pelvis without the use of intravenous contrast. Auto Exposure Controls were utilized during the CT exam to meet ALARA standards for radiation dose reduction. INDICATION: Pelvic abscess There has been increase in coarse bilateral basilar infiltrate. Unenhanced images of liver, pancreas, adrenal glands and spleen are otherwise unremarkable. There is minimal punctate calcification in the midportion of the right kidney however there is no hydronephrosis. There is significant artifact from bilateral hip prostheses which limits evaluation of the pelvis. Right lower quadrant ostomy has stable appearance without evidence of obstruction. There is increased density in the right adnexal region which could result in mass effect on the right ureter. Again this is somewhat difficult to characterize due to artifact and absence of intravenous contrast. IMPRESSION: Apparent right adnexal region mass measuring approximately 2 x 3 cm may result in extrinsic compression on the right ureter. Possibility of abscess or adenopathy is not excluded. There has been increase in coarse infiltrates in the lung bases which may be due to pneumonitis or pneumonia. Complete evaluation of pelvis is significantly limited due to artifact from metallic hip prostheses. Dictated by: Dictated on workstation # [id number] Dict: 12/23/22 1536 Trans: 12/23/22 175 [facility] [id number] Interpreted by: DEBORA LAW MD Electronically signed by: DEBORA LAW MD 12/23/22 1754 Assessment/Plan Assessment/Plan Assessment/Plan Diffuse abdominal pain Nausea ??Pelvic Abscess -Fluid collection in pelvis measuring 8 x 4.4 cm - resolved Urostomy. bladder cancer Weight loss Smoking, 2 cigarettes daily now but a 52 year history of 2-3 ppd I reviewed both CTs myself and discussed this case with Dr. Mae and actually talked to the ER provider on Friday. The abd/pelvis CT on 12/21 showed a fluid collection with some air inside measuring 8 x 4.[address] on 12/23 unfortunately makes no mention of the fluid collection (at the same site), but now sees something in right adnexal area. There does not appear to be an abscess or surgical indication at this time. Will continue monitoring nausea and abd pain. Continue medical management of chronic conditions. Supervisory-Addendum Brief Verification & Attestation Participated in pt care: history, MDM, physical Personally performed: exam, history, MDM, supervision of care Care discussed with: Medical Student Procedures: n/a Verification and Attestation of Medical Student E/M Service A medical student performed and documented this service. I then reviewed and verified all information documented by the medical student and made modifications to such information, when appropriate. I personally performed a physical exam, medical decision making and then discussed any differences between the notes and made revisions as necessary to create one note. Capri Levine , 12/24/22 , 14:05 JESUS HOWARD Dec 24, 2022 11:42 CAPRI LEVINE DO Dec 24, 2022 14:01
[2022-12-24] MEDS: NS IV SCH (11:58)
[2022-12-24] MEDS: DAPTOMYCIN IV SCH (11:58)
--- NOTE | 2022-12-24 13:56 | Occupational Therapy Eval ---
OT Evaluation-General/PLF Medical Diagnosis Admission Date Dec 21, 2022 at 14:37 Medical Diagnosis: hypotension, UTI Onset Date: Dec 21, 2022 Therapy Diagnosis Therapy Diagnosis: weakness Height/Weight Height (Feet): 5 Height (Inches): 4.00 Weight (Pounds): 165 Weight (Ounces): 0.0 Precautions Precautions/Isolations: Contact Isolation, Standard Precautions Weight Bear Status Weight Bearing Restriction: Full Weight Bearing Referral Physician: DEVEN Referral Reason: Activity Tolerance, Evaluation/Treatment Medical History Pertinent Medical History: Atrial Fib, CAD, COPD, DM, HTN, OA, PVD, Smoking Additional Medical History per chart: 7 yo F with PMH of COPD, IBS, bladder cancer and CAD that presents with general fatigue, abdominal pain and low blood pressure for the past one to two months. She reports that her abdominal pain has been increasing in intensity, especially the past week, and is a diffuse sharp pain that she says is a 10/10. She reports having lots of diarrhea the past few weeks and has now been constipated the past three days but says it is worse than her normal BM with IBS. She also reports around a 40 lbs weight loss in the same time period. She feels as though she is always tired and has no energy and has been sleeping more. She reports her BP at home runs low around 90's/50's. She was at [facility] ER 3 days ago where they treated her for a UTI. She also reports a cough and feeling nauseous. She denies chills, diarrhea, dizziness, vomiting. At home she is on 4 L of oxygen. Current History Patient reports she has had urostomy for years and cares for stoma herself, OT provided education for proper BM hygiene and hand hyuaigned prior to care for stoma an durostomy bag. BAg is noted to be dirty. Patient report she snaps it back on if it comes lose. Patient demonstrated care and OT also noted soiled fingernails and nail beds. OT provided cleansing supplies for hand hygiene Reviewed History: Yes Social History Home: Single Level Current Living Status: Alone ADL-Prior Level of Function SCALE: Activities may be completed with or without assistive devices. 4-Oxtmsjbqcx-vdusbpy completes the activity by him/herself with no assistance from a helper. 5-Set-up or Clean-up Assistance-helper sets up or cleans up; patient completes activity. [place] assists only prior to or following the activity. 4-Supervision or Touching Assistance-helper provides verbal cues and/or touching/steadying and/or contact guard assistance as patient completes activity. Assistance may be provided throughout the activity or intermittently. 3-Partial/Moderate Assistance-helper does LESS THAN HALF the effort. [place] lifts, holds or supports trunk or limbs, but provides less than half the effort. 2-Substantial/Maximal Assistance-helper does MORE THAN HALF the effort. [place] lifts or holds trunk or limbs and provides more than half the effort. 9-Cfyjftrmt-siehlg does ALL the effort. Patient does none of the effort to complete the activity. Or, the assistance of 2 or more helpers is required for the patient to complete the activity. If activity was not attempted, code reason: 7-Patient Refused. 9-Not Applicable-not attempted and the patient did not perform the activity before the current illness, exacerbation or injury. 10-Not Attempted due to Environmental Limitations-(lack of equipment, weather restraints, etc.). 88-Not Attempted due to Medical Conditions or Safety Concerns. DME/Equipment Comments 4ww OT Current Status Subjective agreeable to participate in therapy Mental Status/Objective Patient Orientation: Person, Place, Time, Situation Attachments: Colostomy/Ileostomy (urostomy), Other-See Comments Current Glasses/Contacts: Yes Hearing Aids: No Dentures/Partials: No Hand Dominance: Right Upper Extremity ROM BUE ROM WFLS Upper Extremity Coordination INTACT Upper Extremity Sensation INTACT Upper Extremity Strength -4/5 WFL ADL-Treatment ADL-Current NOON MEAL ARRIVED DURING EVAL. OT SET UP PRE HAND HYGIENE AND POST MEAL ORAL CARE, SHAMPOO CAP APPLIED DURING EVAL AND PATIENT COMPLETED COMBING. PATIENT DRESSES SELF FULLY. Eating (QC): 6 Oral Hygiene (QC): 5 (SET UP ON BEDSIDE TRAY TABLE D/T PATIENT NOT HAIVNG SUPPLIES WHEN ADMITTED) Shower/Bathe Self (QC): 7 (OT RECOMMENDED FULLY CLEANSING STOMA W/ RUNNIG WATER AND CHANGING BOTH PARTS OF UROSTOMY WITH CLEAN HANDS) Upper Body Dressing (QC): 6 Lower Body Dressing (QC): 6 On/Off Footwear (QC): 6 Toileting Hygiene (QC): 5 (E COLI DETECTED IN LABS. OT EDUCATED ON PROPER HYG IENE, INCLUDING HAND AND NAIL HYGIENE POST BM) Education OT Patient Education: Correct positioning, Modified ADL techniques, Progress toward Goal/Update tx plan, Purpose of tx/functional activities, Reviewed precautions, Rehab process, Safety issues Teaching Recipient: Patient Teaching Methods: Demonstration, Discussion Response to Teaching: Verbalize Understanding OT [facility] Goals [facility] Goals 1=Demonstrate adherence to instructed precautions during ADL tasks. 2=Patient will verbalize/demonstrate understanding of assistive devices/modifications for ADL. 3=Patient will improve strength/tolerance for activity to enable patient to perform ADL's. OT Education/Plan Problem List/Assessment Assessment: No Skilled OT Needs ID'd Discharge Recommendations Plan/Recommendations: Discontinue OT Treatment Plan/Plan of Care Patient would benefit from OT for education, treatment and training to promote independence in ADL's, mobility, safety and/or upper extremity function for ADL's. Plan of Care: OTHER (EVAL ONLY, HYGIENE EDUCAITON PROVIDED AT EVAL) Treatment Duration: Dec 24, 2022 Frequency: 1 time per week Estimated Hrs Per Day: .25 hour per day Agreement: Yes Rehab Potential: Good REMAIN UP IN RECLINER FOR MEAL. ALL NEEDS MET Time Start Time: 13:40 Stop Time: 13:55 DATE: Dec 24, 2022 Total Time Billed (hr/min): 15 Billed Treatment Time EVM 15 MIN BONY NORMAN OT Dec 24, 2022 13:56
--- NOTE | 2022-12-24 14:01 | Physical Therapy Evaluation ---
PT Evaluation-General Medical Diagnosis Admission Date Dec 21, 2022 at 14:37 Medical Diagnosis: UTI/abdominal abscess Onset Date: Dec 21, 2022 Therapy Diagnosis Therapy Diagnosis: debility Height/Weight Height (Feet): 5 Height (Inches): 4.00 Weight (Pounds): 165 Weight (Ounces): 0.0 Precautions Precautions/Isolations: Contact Isolation Referral Physician: Carmelita Reason for Referral: Evaluation/Treatment Medical History Pertinent Medical History: Atrial Fib, CAD, COPD, DM, HTN, OA, PVD, Smoking Current History ambulate to the ER secondary to UTI/low BP Reviewed History: Yes Social History Home: Single Level Current Living Status: Alone Prior Prior Level of Function SCALE: Activities may be completed with or without assistive devices. 1-Jtzobfgayq-jkzrtmz completes the activity by him/herself with no assistance from a helper. 5-Set-up or Clean-up Assistance-helper sets up or cleans up; patient completes activity. [place] assists only prior to or following the activity. 4-Supervision or Touching Assistance-helper provides verbal cues and/or touching/steadying and/or contact guard assistance as patient completes activity. Assistance may be provided throughout the activity or intermittently. 3-Partial/Moderate Assistance-helper does LESS THAN HALF the effort. [place] lifts, holds or supports trunk or limbs, but provides less than half the effort. 2-Substantial/Maximal Assistance-helper does MORE THAN HALF the effort. [place] lifts or holds trunk or limbs and provides more than half the effort. 3-Puhmkpwyk-fvqxad does ALL the effort. Patient does none of the effort to complete the activity. Or, the assistance of 2 or more helpers is required for the patient to complete the activity. If activity was not attempted, code reason: 7-Patient Refused. 9-Not Applicable-not attempted and the patient did not perform the activity before the current illness, exacerbation or injury. 10-Not Attempted due to Environmental Limitations-(lack of equipment, weather restraints, etc.). 88-Not Attempted due to Medical Conditions or Safety Concerns. Bed Mobility: 6 Transfers (B,C,W/C): 6 Gait: 6 Indoor Mobility (Ambulation): Independent Prior Devices Use: Walker (4WW) PT Evaluation-Current Subjective Upon entering room, patient was adjusting urostomy bag and tubing with bare hands. Patient agrees to PT. Objective Patient Orientation: Normal For Age Attachments: Oxygen ROM/Strength ROM Lower Extremities bilateral LE WFL Strength Lower Extremities 4-/5 grossly bilateral LE all planes Integumentary/Posture Bladder Incontinence: No (urostomy) Neuromuscular (Tone, Coordination, Reflexes) grossly intact Sensory Vision: Wears Glasses Hearing: Functional Transfers Lying to Sitting/Side of Bed(Q: 6 Sit to Stand (QC): 6 Chair/Yvf-lv-Ytizb Xfer(QC): 6 Gait Mode of Locomotion: Walk Anticipated Mode of Locomotion: Walk Walk 10 feet (QC): 6 Walk 50 ft with 2 Turns(QC): 6 Walk 150 ft (QC): 6 Distance: 250' Gait Assistive Device: Walker 4 Wheeled Comments/Gait Description safe and functional with no deviation Balance Sitting Static: Normal Sitting Dynamic: Normal Standing Static: Normal Standing Dynamic: Normal Assessment/Needs Patient is currently at independent LOF with all gross motor skills safely and does not require skilled PT intervention at this time. Rehab Potential: Fair PT Plan Treatment/Plan Treatment Plan: Discontinue PT Treatment Duration: Dec 24, 2022 Frequency: 1 time per week Estimated Hrs Per Day: .25 hour per day Patient and/or Family Agrees t: Yes Time Time In: 1330 Time Out: 1344 DATE: Dec 24, 2022 Total Billed Treatment Time: 14 Total Billed Treatment 1 visit [facility] 14 min ZOYA HANNON PT Dec 24, 2022 14:01
[2022-12-24 16:16] VITALS: BP 114/54
[2022-12-24 19:30] VITALS: BP_SYST 119; BP_SYST 134; BP_DIAS 62; BP_DIAS 63
[2022-12-24] MEDS: traZODone 150 MG (DESYREL) TABLET PO SCH (20:02)
[2022-12-24] MEDS: LATANOPROST 0.005% OPHTH SOLN 2.5 ML OU SCH (20:03)
[2022-12-24] MEDS: DONEPEZIL 10 MG TABLET PO SCH (20:03)
[2022-12-24] MEDS: MONTELUKAST 10 MG TABLET PO SCH (20:03)
[2022-12-24 21:32] VITALS: BP 114/54
[2022-12-24 23:26] VITALS: BP 114/73
[2022-12-25 03:37] VITALS: BP 118/74
[2022-12-25] MEDS: morphine INJ 4 MG/ML 1 ML (VIAL/SYRINGE) IV PRN ×2 (05:36→22:03)
[2022-12-25] MEDS: MEROPENEM INJECTION 500 MG in NS (IVPB) 100 ML 100 ML IV SCH (05:36)
[2022-12-25] MEDS: PANTOPRAZOLE 40 MG TABLET PO SCH (05:38)
[2022-12-25 05:40] LABS: BASOPHILS % (AUTO) 0 % (0-10); EOSINOPHILS # (AUTO) 0.2 10^3/uL (0.0-0.3); EOSINOPHILS % (AUTO) 5 % (0-10); HEMATOCRIT 36 % (35-52); HEMOGLOBIN 11.5 g/dL (11.5-16.0); LYMPHOCYTES # (AUTO) 1.3 10^3/uL (1.0-4.0); LYMPHOCYTES % (AUTO) 28 % (12-44); MEAN CORPUSCULAR HEMOGLOBIN 28 pg (25-34); MEAN CORPUSCULAR HGB CONC 32 g/dL (32-36); MEAN CORPUSCULAR VOLUME 89 fL (80-99); MEAN PLATELET VOLUME 10.8 fL (9.0-12.2); MONOCYTES # (AUTO) 0.6 10^3/uL (0.0-1.0); MONOCYTES % (AUTO) 13 % (0-12); NEUTROPHILS # (AUTO) 2.4 10^3/uL (1.8-7.8); NEUTROPHILS % (AUTO) 54 % (42-75); PLATELET COUNT 153 10^3/uL (130-400); WHITE BLOOD COUNT 4.5 10^3/uL (4.3-11.0)
[2022-12-25 06:07] LABS: ALBUMIN 3.3 GM/DL (3.2-4.5); BILIRUBIN,TOTAL 0.3 MG/DL (0.1-1.0); CALCIUM 9.4 MG/DL (8.5-10.1); CREATININE SERUM 0.51 MG/DL (0.60-1.30); POTASSIUM 4.1 MMOL/L (3.6-5.0); TOTAL PROTEIN 5.9 GM/DL (6.4-8.2)
[2022-12-25] MEDS: POTASSIUM CL 10MEQ/50ML IVPB 50 ML IV SCH (06:38)
[2022-12-25] MEDS: MAGNESIUM 1 GM/100 ML IVPB 100 ML IV SCH (06:39)
[2022-12-25] MEDS: POTASSIUM CHLORIDE 20 MEQ TABLET PO SCH (06:40)
[2022-12-25] MEDS: TIOTROPIUM INH 4 GM (SPIRIVA Respimat) IH SCH (06:51)
[2022-12-25] MEDS: FLUTICASONE/VILANTEROL 100/25 MCG (7 DOSES) IH SCH (06:51)
[2022-12-25] MEDS: RT-Ipratropium/Albuterol NEB 3 ML VIAL INH SCH ×3 (06:54→19:24)
[2022-12-25 07:19] VITALS: BP 119/65
--- NOTE | 2022-12-25 08:11 | Progress Note - Surgery ---
JESUS HOWARD 12/25/22 0811: Subjective Date Seen by a Provider: Dec 25, 2022 Time Seen by a Provider: 08:06 Subjective/Events-last exam Pt states she still feels abd pain and nausea today. Pt is receiving Ondansetron q6hr. Pt states her abd pain is the same as yesterday. Pt states she gets sick to her stomach but cannot vomit and instead gags up phlegm. She states her abd pain is in the periumbilical area. Pt states she has not had a normal BM in 6 days and requests a suppository. Pt has a urostomy and has not had any issues with it. Pt is on a normal diet and is currently eating an omelet. Review of Systems General: Chills (last night), Night Sweats (last night) HEENT: Head Aches, Eye Pain Pulmonary: No Dyspnea; Cough Cardiovascular: No: Chest Pain, Palpitations Gastrointestinal: Nausea, Abdominal Pain (points to periumbilical area); No: Vomiting Genitourinary: Other (urostomy) Neurological: Weakness (knees real weak b/l when she gets up, she says), Numbness (in fingers of left hand) Objective Exam Vital Signs Date Time Temp Pulse Resp B/P (MAP) Pulse Ox O2 Delivery O2 Flow Rate FiO2 12/25/22 07:19 37.0 73 17 119/65 (83) 93 Nasal Cannula 5.00 12/25/22 06:56 92 Nasal Cannula 4.00 12/25/22 06:55 95 Nasal Cannula 5.00 12/25/22 03:37 36.7 87 16 118/74 (89) 92 Nasal Cannula 5.00 12/24/22 23:26 36.2 72 20 114/73 (87) 93 Nasal Cannula 4.00 4.00 12/24/22 21:32 36.7 64 95 36 12/24/22 21:22 90 Nasal Cannula 4.00 12/24/22 20:12 Nasal Cannula 4.50 12/24/22 19:30 37.2 70 20 119/63 (81) 91 Nasal Cannula 5.00 12/24/22 16:16 36.7 64 20 114/54 (74) 95 Nasal Cannula 5.00 12/24/22 13:00 67 14 110/64 (79) 96 Nasal Cannula 5.00 12/24/22 12:14 70 12/24/22 12:00 78 22 132/74 (93) 96 Nasal Cannula 5.00 12/24/22 12:00 93 Nasal Cannula 5.00 12/24/22 11:36 36.3 12/24/22 11:07 36.3 12/24/22 11:07 36.3 12/24/22 11:00 94 32 129/81 (97) 90 Nasal Cannula 5.00 12/24/22 10:46 36.6 12/24/22 10:38 36.6 12/24/22 10:17 93 Nasal Cannula 5.00 12/24/22 10:00 77 12 119/69 (86) 90 Nasal Cannula 5.00 12/24/22 09:00 98 31 139/66 (90) 90 Nasal Cannula 5.00 I & O 12/25/22 06:59 Intake Total 1360 ml Output Total 2525 ml Balance -1165 ml Capillary Refill : Less Than 3 Seconds General Appearance: No Apparent Distress, Chronically ill, Thin Neck: Non Tender; No JVD Respiratory: Lungs Clear, No Respiratory Distress Cardiovascular: Regular Rate, Rhythm (HR 73), No Murmur Peripheral Pulses: 2+ Carotid (R), 2+ Carotid (L), 2+ Dorsalis Pedis (R), 2+ Left Dors-Pedis (L), 2+ Radial Pulses (R), 2+ Radial Pulses (L) Gastrointestinal: soft, no pulsatile mass; No distended, No guarding, No rebound; tenderness (light palpation to whole abd but worse in RLQ and perimbulical) Extremity: No Pedal Edema Neurologic/Psychiatric: Alert, Oriented x3 Skin: Normal Color, Warm/Dry Results Lab Laboratory Tests 12/25/22 05:23: White Blood Count 4.5, Red Blood Count 4.05, Hemoglobin 11.5, Hematocrit 36, Mean Corpuscular Volume 89, Mean Corpuscular Hemoglobin 28, Mean Corpuscular Hemoglobin Concent 32, Red Cell Distribution Width 13.4, Platelet Count 153, Mean Platelet Volume 10.8, Immature Granulocyte % (Auto) 0, Neutrophils (%) (Auto) 54, Lymphocytes (%) (Auto) 28, Monocytes (%) (Auto) 13H, Eosinophils (%) (Auto) 5, Basophils (%) (Auto) 0, Neutrophils # (Auto) 2.4, Lymphocytes # (Auto) 1.3, Monocytes # (Auto) 0.6, Eosinophils # (Auto) 0.2, Basophils # (Auto) 0.0, I mmature Granulocyte # (Auto) 0.0, Sodium Level 139, Potassium Level 4.1, Chloride Level 100, Carbon Dioxide Level 31, Anion Gap 8, Blood Urea Nitrogen 4L , Creatinine 0.51L, Estimat Glomerular Filtration Rate 101, BUN/Creatinine Ratio 8, Glucose Level 94, Calcium Level 9.4, Corrected Calcium 10.0, Total Bilirubin 0.3, Aspartate Amino Transf (AST/SGOT) 20, Alanine Aminotransferase (ALT/SGPT) 27, Alkaline Phosphatase 123, Total Creatine Kinase 17L, Total Protein 5.9L, Albumin 3.3 Microbiology 12/22/22 Gram Stain - Final, Resulted 12/22/22 Sputum Culture - Preliminary, Resulted Usual upper respiratory flor 12/21/22 Urine Culture - Preliminary, Resulted Enterococcus faecium Pseudomonas aeruginosa Susceptibility To Follow 12/21/22 Blood Culture - Preliminary, Resulted Assessment/Plan Assessment/Plan Assessment/Plan Diffuse abdominal pain Nausea - Zofran q6hr Constipation ??Pelvic Abscess -Fluid collection in pelvis measuring 8 x 4.4 cm - resolved Urostomy. bladder cancer Weight loss Smoking, 2 cigarettes daily now but a 52 year history of 2-3 ppd The abd/pelvis CT on 12/21 showed a fluid collection with some air inside measuring 8 x 4.[address] on 12/23 unfortunately makes no mention of the fluid collection (at the same site), but now sees something in right adnexal area. There does not appear to be an abscess or surgical indication at this time. Will continue monitoring nausea and abd pain. Give pt a suppository. Continue medical management of chronic conditions. STEPAN OBANDO DO 12/25/22 1439: Subjective Time Seen by a Provider: 12:59 Subjective/Events-last exam Pt seen and examined, she was sleeping but easily arousable. As soon as she woke up she stated she was in pain. There was a completely empty tray. Review of Systems General: Chills (last night), Night Sweats (last night) HEENT: Head Aches, Eye Pain Pulmonary: No Dyspnea; Cough Cardiovascular: No: Chest Pain, Palpitations Gastrointestinal: Nausea, Abdominal Pain (points to periumbilical area); No: Vomiting Genitourinary: Other (urostomy) Neurological: Weakness (knees real weak b/l when she gets up, she says), Numbness (in fingers of left hand) Objective Exam General Appearance: No Apparent Distress, Chronically ill, Thin Respiratory: Lungs Clear, Normal Breath Sounds, No Accessory Muscle Use, No Respiratory Distress Cardiovascular: Regular Rate, Rhythm (HR 73), No Murmur Gastrointestinal: soft; No distended, No guarding, No rebound; tenderness (light palpation to whole abd but worse in RLQ and perimbulical) Neurologic/Psychiatric: Alert, Oriented x3 Skin: Normal Color, Warm/Dry Assessment/Plan Assessment/Plan Assessment/Plan Diffuse abdominal pain Nausea - Zofran q6hr Constipation ??Pelvic Abscess -Fluid collection in pelvis measuring 8 x 4.4 cm - resolved Urostomy. bladder cancer Weight loss Smoking, 2 cigarettes daily now but a 52 year history of 2-3 ppd The abd/pelvis CT on 12/21 showed a fluid collection with some air inside measuring 8 x 4.[address] on 12/23 unfortunately makes no mention of the fluid collection (at the same site), but now sees something in right adnexal area. There does not appear to be an abscess or surgical indication at this time. Will continue monitoring nausea and abd pain. Give pt a suppository. Continue medical management of chronic conditions. Supervisory-Addendum Brief Verification & Attestation Participated in pt care: history, MDM, physical Personally performed: exam, history, MDM, supervision of care Care discussed with: Medical Student Procedures: n/a Verification and Attestation of Medical Student E/M Service A medical student performed and documented this service. I then reviewed and verified all information documented by the medical student and made modifications to such information, when appropriate. I personally performed a physical exam, medical decision making and then discussed any differences between the notes and made revisions as necessary to create one note. Stepan Obando , 12/25/22 , 14:39 JESUS HOWARD Dec 25, 2022 08:11 STEPAN OBANDO DO Dec 25, 2022 14:39
[2022-12-25] MEDS: CITALOPRAM 20 MG TABLET PO SCH (08:19)
[2022-12-25] MEDS: CYPROHEPTADINE 4 MG TABLET PO SCH ×3 (08:19→20:32)
[2022-12-25] MEDS: busPIRone 15 MG TABLET PO SCH ×2 (08:19→20:32)
[2022-12-25] MEDS: DIGOXIN 0.25 MG TABLET PO SCH (08:19)
[2022-12-25] MEDS: rOPINIRole 1 MG TABLET PO SCH ×2 (08:19→20:31)
[2022-12-25] MEDS: ONDANSETRON 4 MG ORAL DISSOLVE TABLET PO PRN (08:19)
[2022-12-25] MEDS: clonazePAM 1 MG TABLET PO SCH ×2 (08:19→20:32)
[2022-12-25] MEDS: SENNOSIDES 8.6 MG TABLET PO SCH ×2 (08:20→20:31)
[2022-12-25] MEDS: MELOXICAM 7.5 MG TABLET PO SCH (08:20)
[2022-12-25] MEDS: PRIMIDONE 250MG TABLET PO SCH ×2 (08:20→20:32)
[2022-12-25] MEDS: EMPAGLIFLOZIN 10 MG TABLET PO SCH (08:20)
[2022-12-25] MEDS: lamoTRIgine 25 MG TABLET PO SCH (08:20)
[2022-12-25] MEDS: DOCUSATE SODIUM 100 MG CAPSULE PO SCH ×2 (08:21→20:31)
[2022-12-25] MEDS: LIDOCAINE 4% PATCH TOP SCH (08:21)
[2022-12-25] MEDS: MUPIROCIN 2% OINTMENT 22 GM TUBE NSEACH SCH ×2 (08:21→22:07)
[2022-12-25] MEDS: FLUTICASONE NASAL SPRAY (120 SPRAYS) NS SCH (08:22)
[2022-12-25] MEDS: COLESTIPOL 1 GM TABLET PO SCH ×2 (08:34→20:32)
[2022-12-25] MEDS: DAPTOMYCIN IV SCH (08:53)
[2022-12-25] MEDS: NS IV SCH (08:53)
[2022-12-25] MEDS: HYDROcodone/ACETAMINOPHEN 5 MG/325 MG TABLET PO PRN ×2 (10:07→17:07)
[2022-12-25 11:27] VITALS: BP 121/61
--- NOTE | 2022-12-25 12:50 | Progress Note - Hospitalist ---
Subjective HPI/CC On Admission Date Seen by Provider: Dec 25, 2022 Patient is a 67 yo F with PMH of COPD, IBS, bladder cancer and CAD that presents with general fatigue, abdominal pain and low blood pressure for the past one to two months. She reports that her abdominal pain has been increasing in intensity, especially the past week, and is a diffuse sharp pain that she says is a 10/10. She reports having lots of diarrhea the past few weeks and has now been constipated the past three days but says it is worse than her normal BM with IBS. She also reports around a 40 lbs weight loss in the same time period. She feels as though she is always tired and has no energy and has been sleeping more. She reports her BP at home runs low around 90's/50's. She was at [facility] ER 3 days ago where they treated her for a UTI. She also reports a cough and feeling nauseous. She denies chills, diarrhea, dizziness, vomiting. At home she is on 4 L of oxygen. Subjective/Events-last exam Pt reports still having abd pain. Thinks it's constipation as she has not had a BM for 6 days. No other complaints. Would like a suppository. Objective Exam Vital Signs Vital Signs Date Time Temp Pulse Resp B/P (MAP) Pulse Ox O2 Delivery O2 Flow Rate FiO2 12/25/22 11:27 36.9 75 18 121/61 (81) 94 Nasal Cannula 5.00 12/24/22 21:32 36 Capillary Refill : Less Than 3 Seconds General Appearance: No Apparent Distress, Chronically ill, Thin Cardiovascular: Regular Rate, Rhythm, No Murmur Gastrointestinal: Normal Bowel Sounds, Soft Neurologic/Psychiatric: Alert, Oriented x3 Results/Procedures Lab Laboratory Tests 12/25/22 05:23 Patient resulted labs reviewed. Imaging: Reviewed Imaging Films, Reviewed Imaging Report Assessment/Plan Assessment and Plan Assess & Plan/Chief Complaint Hypotension Pelvic abscess UTI s/p cysectomy IV Cefepime and daptomycin per cultures Consider SWB for IV abx Urine culture- probable enterococcus, pseudomonas Antiemetics prn Bowel regimen- spoke with RN who will give suppository now Continue oral pain meds- prioritize orals first Chronic respiratory failure COPD CXR yesterday with atelectasis vs pneumonitis- CT reads as infiltrates vs pneumonitis- already on IV abx Continue O2- patient is on 4 L at home MAT protocol IBS Laxatives prn for constipation CAD No acute needs Critical Care Critically Ill Patient RUBIO CARVALHO MD Dec 25, 2022 12:50
[2022-12-25] MEDS: CEFEPIME 1,000 MG/NS 50 ML IVPB IV SCH ×4 (13:26→22:00)
[2022-12-25 15:20] VITALS: BP 106/55
[2022-12-25 19:28] VITALS: BP 109/56
[2022-12-25] MEDS: DONEPEZIL 10 MG TABLET PO SCH (20:31)
[2022-12-25] MEDS: traZODone 150 MG (DESYREL) TABLET PO SCH (20:32)
[2022-12-25] MEDS: MONTELUKAST 10 MG TABLET PO SCH (20:32)
[2022-12-25] MEDS: LATANOPROST 0.005% OPHTH SOLN 2.5 ML OU SCH (22:06)
[2022-12-25 23:08] VITALS: BP 104/59
[2022-12-26] MEDS: HYDROcodone/ACETAMINOPHEN 5 MG/325 MG TABLET PO PRN ×3 (03:39→20:15)
[2022-12-26 04:04] VITALS: BP 102/58
[2022-12-26] MEDS: CEFEPIME 1,000 MG/NS 50 ML IVPB IV SCH ×6 (05:01→22:27)
[2022-12-26 05:13] LABS: BASOPHILS % (AUTO) 1 % (0-10); EOSINOPHILS # (AUTO) 0.3 10^3/uL (0.0-0.3); EOSINOPHILS % (AUTO) 7 % (0-10); HEMATOCRIT 34 % (35-52); LYMPHOCYTES # (AUTO) 1.4 10^3/uL (1.0-4.0); LYMPHOCYTES % (AUTO) 33 % (12-44); MEAN CORPUSCULAR HEMOGLOBIN 28 pg (25-34); MEAN CORPUSCULAR HGB CONC 32 g/dL (32-36); MEAN CORPUSCULAR VOLUME 88 fL (80-99); MEAN PLATELET VOLUME 10.3 fL (9.0-12.2); MONOCYTES # (AUTO) 0.6 10^3/uL (0.0-1.0); MONOCYTES % (AUTO) 13 % (0-12); NEUTROPHILS % (AUTO) 47 % (42-75); PLATELET COUNT 172 10^3/uL (130-400); WHITE BLOOD COUNT 4.3 10^3/uL (4.3-11.0)
[2022-12-26] MEDS: PANTOPRAZOLE 40 MG TABLET PO SCH (05:17)
[2022-12-26 05:56] LABS: ALBUMIN 3.2 GM/DL (3.2-4.5); BILIRUBIN,TOTAL 0.3 MG/DL (0.1-1.0); CALCIUM 9.5 MG/DL (8.5-10.1); CREATININE SERUM 0.53 MG/DL (0.60-1.30); POTASSIUM 4.3 MMOL/L (3.6-5.0); TOTAL PROTEIN 5.8 GM/DL (6.4-8.2)
[2022-12-26] MEDS: POTASSIUM CHLORIDE 20 MEQ TABLET PO SCH (05:57)
[2022-12-26] MEDS: POTASSIUM CL 10MEQ/50ML IVPB 50 ML IV SCH (05:57)
[2022-12-26] MEDS: MAGNESIUM 1 GM/100 ML IVPB 100 ML IV SCH (06:26)
[2022-12-26] MEDS: FLUTICASONE/VILANTEROL 100/25 MCG (7 DOSES) IH SCH (07:29)
[2022-12-26] MEDS: TIOTROPIUM INH 4 GM (SPIRIVA Respimat) IH SCH (07:29)
[2022-12-26] MEDS: RT-Ipratropium/Albuterol NEB 3 ML VIAL INH SCH ×4 (07:29→21:21)
--- NOTE | 2022-12-26 07:59 | Progress Note - Surgery ---
JESUS HOWARD 12/26/22 0759: Subjective Date Seen by a Provider: Dec 26, 2022 Time Seen by a Provider: 07:52 Subjective/Events-last exam Pt states she is still nauseated, still has the same abd pain level as yesterday localized to her periumbilical area, and still has not had a BM in 7 days now, other than a small rock-hard pellet two days ago. Pt says this is unusual because she normally has diarrhea. Pt has been eating a normal diet but says she has not been eating much because it hurts her lower abdomen when she eats. Pt says eating and drinking also cause pain in her esophagus when they go down. Pt says she often chokes on her food. Pt denies any vomiting. Pt states these eating and drinking issues began over a month ago. Pt states she had an EGD a month or two ago at [facility] in [place] due to having food stuck in her throat, and they removed the food bolus and "they put botox in there." Pt states she believes she last had a colonoscopy here over 5 years ago and it was done here. Review of Systems General: No Chills, No Night Sweats HEENT: Head Aches; No Eye Pain Pulmonary: No Dyspnea; Cough Cardiovascular: No: Chest Pain, Palpitations Gastrointestinal: Nausea (a little bit), Abdominal Pain (in the periumbilical area, worse after eating); No: Vomiting Genitourinary: Other (urostomy) Neurological: Weakness (in left hand, pt has RA), Numbness (in left hand, pt has RA) Objective Exam Vital Signs Date Time Temp Pulse Resp B/P (MAP) Pulse Ox O2 Delivery O2 Flow Rate FiO2 12/26/22 07:34 Nasal Cannula 5.00 12/26/22 07:34 Nasal Cannula 5.00 12/26/22 07:29 92 Nasal Cannula 5.00 12/26/22 04:04 37.0 55 18 102/58 (73) 94 Nasal Cannula 5.00 5.00 12/26/22 01:00 62 12/25/22 23:08 37.0 68 18 104/59 (74) 92 Nasal Cannula 5.00 5.00 12/25/22 21:27 70 12/25/22 20:32 93 Nasal Cannula 5.00 12/25/22 19:28 37.3 59 18 109/56 (73) 93 Nasal Cannula 5.00 12/25/22 19:24 97 Nasal Cannula 5.00 12/25/22 15:20 36.3 66 18 106/55 (72) 90 Nasal Cannula 5.00 12/25/22 11:27 36.9 75 18 121/61 (81) 94 Nasal Cannula 5.00 12/25/22 10:44 95 Nasal Cannula 5.00 12/25/22 08:00 93 Nasal Cannula 5.00 I & O 12/26/22 07:00 Intake Total 2130 ml Output Total 1775 ml Balance 355 ml Capillary Refill : Less Than 3 Seconds General Appearance: No Apparent Distress, Chronically ill, Thin Neck: No JVD; Tender Lateral (pt said it was tender when I checked both of her carotid pulses after asking her if it was) Respiratory: No Accessory Muscle Use, No Respiratory Distress, Crackles Cardiovascular: No Murmur, Bradycardia (HR 55) Peripheral Pulses: 2+ Carotid (R), 2+ Carotid (L), 2+ Dorsalis Pedis (R), 2+ Left Dors-Pedis (L), 2+ Radial Pulses (R), 2+ Radial Pulses (L) Gastrointestinal: soft; No guarding (no voluntary or involuntary), No rebound; tenderness (to light palpation diffusely, worse in periumbilical area) Extremity: No Pedal Edema Neurologic/Psychiatric: Alert, Oriented x3 Skin: Normal Color, Warm/Dry Results Lab Laboratory Tests 12/26/22 05:00: White Blood Count 4.3, Red Blood Count 3.89, Hemoglobin 11.0L, Hematocrit 34L, Mean Corpuscular Volume 88, Mean Corpuscular Hemoglobin 28, Mean Corpuscular Hemoglobin Concent 32, Red Cell Distribution Width 13.3, Platelet Count 172, Mean Platelet Volume 10.3, Immature Granulocyte % (Auto) 0, Neutrophils (%) (Auto) 47, Lymphocytes (%) (Auto) 33, Monocytes (%) (Auto) 13H, Eosinophils (%) (Auto) 7, Basophils (%) (Auto) 1, Neutrophils # (Auto) 2.0, Lymphocytes # (Auto) 1.4, Monocytes # (Auto) 0.6, Eosinophils # (Auto) 0.3, Basophils # (Auto) 0.0, Immature Granulocyte # (Auto) 0.0, Sodium Level 140, Potassium Level 4.3, Chloride Level 99, Carbon Dioxide Level 33H, Anion Gap 8, Blood Urea Nitrogen 10, Creatinine 0.53L, Estimat Glomerular Filtration Rate 100, BUN/Creatinine Ratio 19, Glucose Level 96, Calcium Level 9.5, Corrected Calcium 10.1, Magnesium Level 2.1, Total Bilirubin 0.3, Aspartate Amino Transf (AST/SGOT) 20, Alanine Aminotransferase (ALT/SGPT) 21, Alkaline Phosphatase 111, Total Protein 5.8L, Albumin 3.2 Microbiology 12/22/22 Gram Stain - Final, Complete 12/22/22 Sputum Culture - Final, Complete Usual upper respiratory flor 12/21/22 Urine Culture - Final, Complete Enterococcus faecium Pseudomonas aeruginosa 12/21/22 Blood Culture - Preliminary, Resulted Assessment/Plan Assessment/Plan Assessment/Plan Diffuse abdominal pain, inocencio. periumbilical Nausea - Zofran q6hr Constipation - suppository Dysphagia - continue PPI ??Pelvic Abscess -Fluid collection in pelvis measuring 8 x 4.4 cm - resolved Urostomy. bladder cancer Weight loss Smoking, 2 cigarettes daily now but a 52 year history of 2-3 ppd The abd/pelvis CT on 12/21 showed a fluid collection with some air inside measuring 8 x 4.[address] on 12/23 unfortunately makes no mention of the fluid collection (at the same site), but now sees something in right adnexal area. There does not appear to be an abscess or surgical indication at this time. Will continue monitoring nausea and abd pain. Give pt a suppository. Continue medical management of chronic conditions. CAPRI OBANDO DO 12/26/22 1358: Subjective Time Seen by a Provider: 10:49 Subjective/Events-last exam Pt seen and examined, she was sitting in bed and appeared very comfortable. When I asked how she was doing she stated she was in "bad" pain. Review of Systems Pulmonary: No Dyspnea; Cough Cardiovascular: No: Chest Pain, Palpitations Gastrointestinal: Nausea (a little bit), Abdominal Pain (in the periumbilical area, worse after eating); No: Vomiting Genitourinary: Other (urostomy) Neurological: Weakness (in left hand, pt has RA), Numbness (in left hand, pt has RA) Objective Exam General Appearance: No Apparent Distress, Chronically ill, Thin Respiratory: No Accessory Muscle Use, No Respiratory Distress, Crackles Cardiovascular: No Murmur, Bradycardia (HR 55) Gastrointestinal: soft; No guarding (no voluntary or involuntary), No rebound; tenderness (to light palpation diffusely, worse in periumbilical area) Extremity: No Pedal Edema Neurologic/Psychiatric: Alert, Oriented x3 Assessment/Plan Assessment/Plan Assessment/Plan Diffuse abdominal pain, inocencio. periumbilical Nausea - Zofran q6hr Constipation - suppository Dysphagia - continue PPI ??Pelvic Abscess -Fluid collection in pelvis measuring 8 x 4.4 cm - resolved Urostomy. bladder cancer Weight loss Smoking, 2 cigarettes daily now but a 52 year history of 2-3 ppd The abd/pelvis CT on 12/21 showed a fluid collection with some air inside measuring 8 x 4.[address] on 12/23 unfortunately makes no mention of the fluid collection (at the same site), but now sees something in right adnexal area. There does not appear to be an abscess or surgical indication at this time. Will sign off and can reconsult if needed. Supervisory-Addendum Brief Verification & Attestation Participated in pt care: history, MDM, physical Personally performed: exam, history, MDM, supervision of care Care discussed with: Medical Student Procedures: n/a Verification and Attestation of Medical Student E/M Service A medical student performed and documented this service. I then reviewed and verified all information documented by the medical student and made modifications to such information, when appropriate. I personally performed a physical exam, medical decision making and then discussed any differences between the notes and made revisions as necessary to create one note. Capri Obando , 12/26/22 , 13:58 JESUS HOWARD Dec 26, 2022 07:59 CAPRI OBANDO DO Dec 26, 2022 13:58
[2022-12-26 08:42] VITALS: BP 103/56
[2022-12-26] MEDS: NS IV SCH (09:30)
[2022-12-26] MEDS: clonazePAM 1 MG TABLET PO SCH ×2 (09:30→20:15)
[2022-12-26] MEDS: busPIRone 15 MG TABLET PO SCH ×2 (09:30→20:15)
[2022-12-26] MEDS: DAPTOMYCIN IV SCH (09:30)
[2022-12-26] MEDS: CYPROHEPTADINE 4 MG TABLET PO SCH ×3 (09:31→20:14)
[2022-12-26] MEDS: EMPAGLIFLOZIN 10 MG TABLET PO SCH (09:31)
[2022-12-26] MEDS: SENNOSIDES 8.6 MG TABLET PO SCH ×2 (09:32→20:22)
[2022-12-26] MEDS: CITALOPRAM 20 MG TABLET PO SCH (09:32)
[2022-12-26] MEDS: rOPINIRole 1 MG TABLET PO SCH ×2 (09:32→20:14)
[2022-12-26] MEDS: DOCUSATE SODIUM 100 MG CAPSULE PO SCH ×2 (09:32→20:21)
[2022-12-26] MEDS: PRIMIDONE 250MG TABLET PO SCH ×2 (09:33→20:14)
[2022-12-26] MEDS: MELOXICAM 7.5 MG TABLET PO SCH (09:33)
[2022-12-26] MEDS: DIGOXIN 0.25 MG TABLET PO SCH (09:33)
[2022-12-26] MEDS: lamoTRIgine 25 MG TABLET PO SCH (09:33)
[2022-12-26] MEDS: COLESTIPOL 1 GM TABLET PO SCH ×2 (09:34→20:21)
[2022-12-26] MEDS: MUPIROCIN 2% OINTMENT 22 GM TUBE NSEACH SCH ×2 (09:34→20:16)
[2022-12-26] MEDS: LIDOCAINE 4% PATCH TOP SCH (09:34)
[2022-12-26] MEDS: FLUTICASONE NASAL SPRAY (120 SPRAYS) NS SCH (09:35)
[2022-12-26] MEDS: FLUDROCORTISONE 0.1 MG TABLET PO SCH (10:28)
[2022-12-26 12:16] VITALS: BP 96/58
--- NOTE | 2022-12-26 13:32 | Progress Note - Hospitalist ---
Subjective HPI/CC On Admission Date Seen by Provider: Dec 26, 2022 Patient is a 67 yo F with PMH of COPD, IBS, bladder cancer and CAD that presents with general fatigue, abdominal pain and low blood pressure for the past one to two months. She reports that her abdominal pain has been increasing in intensity, especially the past week, and is a diffuse sharp pain that she says is a 10/10. She reports having lots of diarrhea the past few weeks and has now been constipated the past three days but says it is worse than her normal BM with IBS. She also reports around a 40 lbs weight loss in the same time period. She feels as though she is always tired and has no energy and has been sleeping more. She reports her BP at home runs low around 90's/50's. She was at [facility] ER 3 days ago where they treated her for a UTI. She also reports a cough and feeling nauseous. She denies chills, diarrhea, dizziness, vomiting. At home she is on 4 L of oxygen. Subjective/Events-last exam Pt reports having back pain today. Did not complain of any abd pain until specifically asked then said it was hurting as well. States she has still not had a decent BM and thinks that is someof it as well. Objective Exam Vital Signs Vital Signs Date Time Temp Pulse Resp B/P (MAP) Pulse Ox O2 Delivery O2 Flow Rate FiO2 12/26/22 12:16 36.7 55 18 96/58 (71) 93 Nasal Cannula 5.00 12/24/22 21:32 36 Capillary Refill : Less Than 3 Seconds General Appearance: No Apparent Distress Respiratory: Lungs Clear, No Respiratory Distress Cardiovascular: Regular Rate, Rhythm, No Murmur Gastrointestinal: Normal Bowel Sounds, Soft Back: Other (some mild tenderness of right lower back- no vertrebral tenderness) Neurologic/Psychiatric: Alert, Oriented x3 Results/Procedures Lab Laboratory Tests 12/26/22 05:00 Patient resulted labs reviewed. Imaging: Reviewed Imaging Films, Reviewed Imaging Report Assessment/Plan Assessment and Plan Assess & Plan/Chief Complaint Hypotension Pelvic abscess UTI s/p cysectomy IV Cefepime and daptomycin per cultures Consider SWB for IV abx Urine culture- probable enterococcus, pseudomonas Antiemetics prn Bowel regimen-consider relistor if no results with suppository Continue oral pain meds- prioritize orals first Chronic respiratory failure COPD CXR with atelectasis vs pneumonitis- CT reads as infiltrates vs pneumonitis- already on IV abx Continue O2- patient is on 4 L at home MAT protocol IBS Laxatives prn for constipation Consider relistor CAD No acute needs Critical Care Critically Ill Patient RUBIO CARVALHO MD Dec 26, 2022 13:32
[2022-12-26 14:39] LABS: CLARITY,URINE CLOUDY; COLOR,URINE YELLOW
[2022-12-26 14:40] LABS: BACTERIA,URINE MODERATE /HPF; BILIRUBIN,URINE NEGATIVE (NEGATIVE); GLUCOSE, URINE (UA) 2+ (NEGATIVE); KETONES,URINE NEGATIVE (NEGATIVE); LEUKOCYTE ESTERASE ,URINE 3+ (NEGATIVE); NITRITE,URINE NEGATIVE (NEGATIVE); PROTEIN,URINE 1+ (NEGATIVE); SQUAMOUS EPITHELIAL CELL,UR RARE /HPF; WBC,URINE 25-50 /HPF; YEAST,URINE FEW /HPF
[2022-12-26 16:04] VITALS: BP 97/56
[2022-12-26 19:38] VITALS: BP 107/60
[2022-12-26] MEDS: DONEPEZIL 10 MG TABLET PO SCH (20:14)
[2022-12-26] MEDS: traZODone 150 MG (DESYREL) TABLET PO SCH (20:14)
[2022-12-26] MEDS: MONTELUKAST 10 MG TABLET PO SCH (20:15)
[2022-12-26] MEDS: LATANOPROST 0.005% OPHTH SOLN 2.5 ML OU SCH (20:16)
[2022-12-26 23:03] VITALS: BP 101/55
[2022-12-27] MEDS: BENZONATATE 100 MG CAPSULE PO PRN (01:04)
[2022-12-27] MEDS: HYDROcodone/ACETAMINOPHEN 5 MG/325 MG TABLET PO PRN ×2 (01:05→05:10)
[2022-12-27 04:53] VITALS: BP 108/56
[2022-12-27] MEDS: CEFEPIME 1,000 MG/NS 50 ML IVPB IV SCH ×2 (05:02)
[2022-12-27] MEDS: PANTOPRAZOLE 40 MG TABLET PO SCH (05:02)
[2022-12-27 05:18] LABS: BASOPHILS % (AUTO) 0 % (0-10); EOSINOPHILS # (AUTO) 0.3 10^3/uL (0.0-0.3); EOSINOPHILS % (AUTO) 8 % (0-10); HEMATOCRIT 34 % (35-52); HEMOGLOBIN 11.2 g/dL (11.5-16.0); LYMPHOCYTES # (AUTO) 1.4 10^3/uL (1.0-4.0); LYMPHOCYTES % (AUTO) 37 % (12-44); MEAN CORPUSCULAR HEMOGLOBIN 29 pg (25-34); MEAN CORPUSCULAR HGB CONC 33 g/dL (32-36); MEAN CORPUSCULAR VOLUME 88 fL (80-99); MEAN PLATELET VOLUME 10.2 fL (9.0-12.2); MONOCYTES # (AUTO) 0.5 10^3/uL (0.0-1.0); MONOCYTES % (AUTO) 13 % (0-12); NEUTROPHILS # (AUTO) 1.6 10^3/uL (1.8-7.8); NEUTROPHILS % (AUTO) 41 % (42-75); PLATELET COUNT 203 10^3/uL (130-400); WHITE BLOOD COUNT 3.9 10^3/uL (4.3-11.0)
[2022-12-27 05:36] LABS: ALBUMIN 3.2 GM/DL (3.2-4.5)
[2022-12-27 05:37] LABS: POTASSIUM 4.3 MMOL/L (3.6-5.0)
[2022-12-27 05:38] LABS: CALCIUM 9.4 MG/DL (8.5-10.1)
[2022-12-27 05:39] LABS: TOTAL PROTEIN 5.8 GM/DL (6.4-8.2)
[2022-12-27 05:41] LABS: BILIRUBIN,TOTAL 0.2 MG/DL (0.1-1.0)
[2022-12-27 05:43] LABS: CREATININE SERUM 0.5 MG/DL (0.60-1.30)
[2022-12-27] MEDS: POTASSIUM CHLORIDE 20 MEQ TABLET PO SCH (05:49)
[2022-12-27] MEDS: POTASSIUM CL 10MEQ/50ML IVPB 50 ML IV SCH (05:49)
[2022-12-27] MEDS: MAGNESIUM 1 GM/100 ML IVPB 100 ML IV SCH (05:49)
[2022-12-27] MEDS: RT-Ipratropium/Albuterol NEB 3 ML VIAL INH SCH ×2 (06:26→10:43)
[2022-12-27 07:06] VITALS: BP 112/55
[2022-12-27] MEDS: FLUTICASONE NASAL SPRAY (120 SPRAYS) NS SCH (09:12)
[2022-12-27] MEDS: COLESTIPOL 1 GM TABLET PO SCH (09:13)
[2022-12-27] MEDS: PRIMIDONE 250MG TABLET PO SCH (09:13)
[2022-12-27] MEDS: EMPAGLIFLOZIN 10 MG TABLET PO SCH (09:13)
[2022-12-27] MEDS: CYPROHEPTADINE 4 MG TABLET PO SCH (09:13)
[2022-12-27] MEDS: clonazePAM 1 MG TABLET PO SCH (09:13)
[2022-12-27] MEDS: SENNOSIDES 8.6 MG TABLET PO SCH (09:13)
[2022-12-27] MEDS: DIGOXIN 0.25 MG TABLET PO SCH (09:13)
[2022-12-27] MEDS: busPIRone 15 MG TABLET PO SCH (09:13)
[2022-12-27] MEDS: rOPINIRole 1 MG TABLET PO SCH (09:13)
[2022-12-27] MEDS: CITALOPRAM 20 MG TABLET PO SCH (09:14)
[2022-12-27] MEDS: DOCUSATE SODIUM 100 MG CAPSULE PO SCH (09:14)
[2022-12-27] MEDS: LIDOCAINE 4% PATCH TOP SCH (09:17)
[2022-12-27] MEDS: lamoTRIgine 25 MG TABLET PO SCH (09:18)
[2022-12-27] MEDS: MELOXICAM 7.5 MG TABLET PO SCH (09:18)
[2022-12-27] MEDS: MUPIROCIN 2% OINTMENT 22 GM TUBE NSEACH SCH (09:19)
[2022-12-27] MEDS: NS IV SCH (09:38)
[2022-12-27] MEDS: DAPTOMYCIN IV SCH (09:38)
[2022-12-27] MEDS: TIOTROPIUM INH 4 GM (SPIRIVA Respimat) IH SCH (10:43)
[2022-12-27] MEDS: FLUTICASONE/VILANTEROL 100/25 MCG (7 DOSES) IH SCH (10:43)
[2022-12-27 11:01] VITALS: BP 106/56
--- NOTE | 2022-12-27 11:07 | Discharge Summary ---
Diagnosis/Chief Complaint Date of Admission Dec 21, 2022 at 14:37 Date of Discharge Admission Diagnosis [facility] Joseph Fuentes MD Discharge Diagnosis (1) Hypotension Status: Acute (2) Pelvic fluid collection Status: Acute (3) UTI (urinary tract infection) Status: Acute (4) Elevated LFTs Status: Acute Discharge Summary Discharge Physical Exam Allergies: Coded Allergies: bacitracin (Verified Allergy, Intermediate, "I BREAK OUT IN A RASH ALL OVER.", 04/02/22) neomycin (Verified Allergy, Intermediate, "I BREAK OUT IN A RASH ALL OVER.", 04/02/22) polymyxin B (Verified Allergy, Intermediate, "I BREAK OUT IN A RASH ALL OVER.", 04/02/22) ibuprofen (Verified Allergy, Mild, RASH, 04/02/22) naproxen (Verified Allergy, Mild, RASH, 04/02/22) strawberry (Verified Allergy, Mild, 04/02/22) sulfamethoxazole (Verified Allergy, Unknown, 04/02/22) tramadol (Verified Allergy, Unknown, Has rec lortab & oxycodone in the past, 06/21/22) trimethoprim (Verified Allergy, Unknown, 04/02/22) Vitals & I&Os Vital Signs Date Time Temp Pulse Resp B/P (MAP) Pulse Ox O2 Delivery O2 Flow Rate FiO2 12/27/22 11:01 36.6 71 16 106/56 (73) 94 Nasal Cannula 5.00 12/24/22 21:32 36 Hospital Course Labs (last 24 hrs) Laboratory Tests 12/26/22 14:20: Urine Color YELLOW, Urine Clarity CLOUDY, Urine pH 7.0, Urine Specific [place] 1.010L, Urine Protein 1+H, Urine Glucose (UA) 2+H, Urine Ketones NEGATIVE, Urine Nitrite NEGATIVE, Urine Bilirubin NEGATIVE, Urine Urobilinogen 0.2, Urine Leukocyte Esterase 3+H, Urine RBC (Auto) 2+H, Urine RBC 5-10H, Urine WBC 25-50H, Urine Squamous Epithelial Cells RARE, Urine Crystals NONE, Urine Bacteria MODERATEH, Urine Casts NONE, Urine Mucus NEGATIVE, Urine Yeast FEWH, Urine Culture Indicated YES 12/27/22 05:00: White Blood Count 3.9L, Red Blood Count 3.91, Hemoglobin 11.2L, Hematocrit 34L, Mean Corpuscular Volume 88, Mean Corpuscular Hemoglobin 29, Mean Corpuscular Hemoglobin Concent 33, Red Cell Distribution Width 13.2, Platelet Count 203, Mean Platelet Volume 10.2, Immature Granulocyte % (Auto) 1, Neutrophils (%) (Auto) 41L, Lymphocytes (%) (Auto) 37, Monocytes (%) (Auto) 13H, Eosinophils (%) (Auto) 8, Basophils (%) (Auto) 0, Neutrophils # (Auto) 1.6L, Lymphocytes # (Auto) 1.4, Monocytes # (Auto) 0.5, Eosinophils # (Auto) 0.3, Basophils # (Auto) 0.0, Immature Granulocyte # (Auto) 0.0, Sodium Level 141, Potassium Level 4.3, Chloride Level 101, Carbon Dioxide Level 29, Anion Gap 11, Blood Urea Nitrogen 16, Creatinine 0.50L, Estimat Glomerular Filtration Rate 101, BUN/Creatinine Ratio 32, Glucose Level 91, Calcium Level 9.4, Corrected Calcium 10.0, Magnesium Level 2.0, Total Bilirubin 0.2, Aspartate Amino Transf (AST/SGOT) 16, Alanine Aminotransferase (ALT/SGPT) 16, Alkaline Phosphatase 100, Total Protein 5.8L, Albumin 3.2 Microbiology 12/22/22 Gram Stain - Final, Complete 12/22/22 Sputum Culture - Final, Complete Usual upper respiratory flor 12/21/22 Urine Culture - Final, Complete Enterococcus faecium Pseudomonas aeruginosa 12/21/22 Blood Culture - Final, Complete Patient resulted labs reviewed. Pending Labs Laboratory Tests 12/27/22 05:00: White Blood Count 3.9, Red Blood Count 3.91, Hemoglobin 11.2, Hematocrit 34, Mean Corpuscular Volume 88, Mean Corpuscular Hemoglobin 29, Mean Corpuscular Hemoglobin Concent 33, Red Cell Distribution Width 13.2, Platelet Count 203, Mean Platelet Volume 10.2, Immature Granulocyte % (Auto) 1, Neutrophils (%) (Auto) 41, Lymphocytes (%) (Auto) 37, Monocytes (%) (Auto) 13, Eosinophils (%) (Auto) 8, Basophils (%) (Auto) 0, Neutrophils # (Auto) 1.6, Lymphocytes # (Auto) 1.4, Monocytes # (Auto) 0.5, Eosinophils # (Auto) 0.3, Basophils # (Auto) 0.0, Immature Granulocyte # (Auto) 0.0, Sodium Level 141, Potassium Level 4.3, Chloride Level 101, Carbon Dioxide Level 29, Anion Gap 11, Blood Urea Nitrogen 16, Creatinine 0.50, Estimat Glomerular Filtration Rate 101, BUN/Creatinine Ratio 32, Glucose Level 91, Calcium Level 9.4, Corrected Calcium 10.0, Magnesium Level 2.0, Total Bilirubin 0.2, Aspartate Amino Transf (AST/SGOT) 16, Alanine Aminotransferase (ALT/SGPT) 16, Alkaline Phosphatase 100, Total Protein 5.8, Albumin 3.2 Imaging: Reviewed Imaging Films, Reviewed Imaging Report Discharge Home Medications: Active Scripts Active Lomotil 2.5-0.025 mg Tablet (Diphenoxylate HCl/Atropine) 2.5 Mg-0.025 Mg Tablet 1 Each PO TID 30 Days Trazodone HCl 150 Mg Tablet 150 Mg PO HS 30 Days Tizanidine HCl 2 Mg Capsule 2 Mg PO DAILY 30 Days Sumatriptan Succinate 25 Mg Tablet 25 Mg PO PRN 30 Days Senna (Sennosides) 8.6 Mg Tablet 8.6 Mg PO DAILY 30 Days Prolia (Denosumab) 60 Mg/Ml Disp.syrin 60 Mg SQ NEEDED 30 Days EVERY 180 DAYS Meloxicam 15 Mg Tablet 15 Mg PO DAILY 30 Days Isosorbide Mononitrate ER (Isosorbide Mononitrate) 120 Mg Tab.er.24h 120 Mg PO D AILY 30 Days Gentamicin Sulfate 0.3 % Drops 5 Ml OP DAILY 30 Days Trelegy Ellipta 100-62.5-25 (Fluticasone/Umeclidin/Vilanter) 100-62.5 Blst.w.dev 1 Each IH DAILY 28 Days Lexapro (Escitalopram Oxalate) 10 Mg Tablet 10 Mg PO DAILY 30 Days Aricept (Donepezil HCl) 10 Mg Tablet 10 Mg PO HS 30 Days Digoxin 250 Mcg (0.25 Mg) Tablet 250 Mcg PO DAILY 30 Days Cyproheptadine HCl 4 Mg Tablet 4 Mg PO TID 30 Days Colestipol HCl 1 Gram Tablet 1 Gm PO BID 30 Days Buspirone HCl 15 Mg Tablet 15 Mg PO BID 30 Days Lamotrigine 25 Mg Tablet 25 Mg PO DAILY 30 Days Ropinirole HCl 2 Mg Tablet 2 Mg PO BID 30 Days Hydrocodone-Acetamin 5-325 mg (Hydrocodone/Acetaminophen) 5 Mg-325 Mg Tablet 1 Tab PO Q4H PRN Reported Viberzi (Eluxadoline) 75 Mg Tablet 75 Mg PO BID Mysoline (Primidone) 250 Mg Tablet 250 Mg PO BID Pantoprazole Sodium 40 Mg Tablet.dr 40 Mg PO DAILY Narcan (Naloxone HCl) 4 Mg/Actuation [place] 4 Mg NS PRN Lidocaine 4 % Adh..patch 1 Each TP DAILY Iprat-Albut 0.5-3(2.5) mg/3 ml (Ipratropium/Albuterol Sulfate) 0.5 Mg-3 Mg (2.5 Mg Base)/3 Ml Ampul.neb 3 Ml IH Q6H PRN Flonase Sensimist (Fluticasone Furoate) 27.5 Mcg/Actuation [place].susp 2 Sprays NSEACH DAILY Epipen (Epinephrine) 0.3 Mg/0.3 Ml Auto.injct 0.3 Mg IJ PRN Alosetron HCl 0.5 Mg Tablet 0.5 Mg PO BID Proventil Hfa (Albuterol Sulfate) 90 Mcg Hfa.aer.ad 2 Puff INH Q6H PRN Montelukast Sodium 10 Mg Tablet 10 Mg PO HS Fludrocortisone Acetate 0.1 Mg Tab 0.1 Mg PO EVERY OTHER DAY Xalatan (Latanoprost) 0.005 % Drops 1 Drop OU HS Diltiazem HCl 90 Mg Tablet 90 Mg PO TID Rosuvastatin Calcium 20 Mg Tablet 20 Mg PO DAILY Nitroglycerin 0.4 Mg Tab.subl 0.4 Mg SL UD PRN Meclizine HCl 25 Mg Tablet 25 Mg PO Q8H PRN Aimovig Autoinjector (Erenumab-Aooe) 70 Mg/1 Ml Auto.injct 70 Mg MONTHLY Clonazepam 1 Mg Tablet 1 Mg PO BID Farxiga (Dapagliflozin Propanediol) 5 Mg Tablet 5 Mg PO DAILY Eliquis (Apixaban) 5 Mg Tablet 5 Mg PO BID Instructions to patient/family Please see electronic discharge instructions given to patient. RUBIO CARVALHO MD Dec 27, 2022 11:07
[2022-12-27] MEDS ORDERED: METHYLNALTREXONE 12 MG/0.6 ML VIAL SQ NR (11:15)
[2022-12-28] MEDS ORDERED: FLUDROCORTISONE 0.1 MG TABLET PO SCH (08:00)
== END 2022-12-27 11:49 | disposition swing bed (61) | DRG 758 ==
LOC: EDUNIT# 11:15 → ER 11:18 → ICU 14:37 → 4TH 12-24 13:27
PROVIDERS: ADMIT Internal Medicine; ATTEND Family Medicine
DX: N73.0 Acute parametritis and pelvic cellulitis (principal); J96.10 Chronic respiratory failure, unspecified whether with hypoxia or hypercapnia; N39.0 Urinary tract infection, site not specified; I95.9 Hypotension, unspecified; K58.9 Irritable bowel syndrome, unspecified; I25.10 Atherosclerotic heart disease of native coronary artery without angina pectoris; F17.210 Nicotine dependence, cigarettes, uncomplicated; F41.9 Anxiety disorder, unspecified; F32.A Depression, unspecified; K21.9 Gastro-esophageal reflux disease without esophagitis; M19.90 Unspecified osteoarthritis, unspecified site; E11.9 Type 2 diabetes mellitus without complications; J43.9 Emphysema, unspecified; E78.00 Pure hypercholesterolemia, unspecified; G40.909 Epilepsy, unspecified, not intractable, without status epilepticus; I50.9 Heart failure, unspecified; Z86.73 Personal history of transient ischemic attack (TIA), and cerebral infarction without residual deficits; Z96.643 Presence of artificial hip joint, bilateral; Z96.653 Presence of artificial knee joint, bilateral; Z20.822 Contact with and (suspected) exposure to COVID-19; D64.9 Anemia, unspecified; G47.33 Obstructive sleep apnea (adult) (pediatric); Z79.01 Long term (current) use of anticoagulants; D69.6 Thrombocytopenia, unspecified; Z93.2 Ileostomy status; K59.00 Constipation, unspecified
CPT/HCPCS: 36410; 36415; 71045; 74176; 74177; 76937; 80053; 81000; 82550; 83605; 83735; 84484; 85025; 85610; 85730; 86141; 87040; 87070; 87077; 87081; 87088; 87106; 87186; 87205; 87636; 93005; 94640; 94664; 94760

== ENCOUNTER 2023-02-26 14:31 | Emergency (ER) | payer MEDICARE, MEDICAID ==
[~2023-02-26 14:31] MED LIST changes: +CIPR500T5 PO; +CYPR4TAB41 PO; +DENO60DI SQ; +DONE10TA12 PO; +ESCI10TA PO; -MECL-149 PO; +MECL-291 PO; +METR-145 PO; +MORP15TA PO; -OXYB5TAB13 PO; +OXYB5TAB14 PO; +SENN-234 PO; +SUMA25TA4 PO; +TIZA2CAP9 PO
[2023-02-26] MEDS ORDERED: fentaNYL INJECTION 100 MCG/2 ML VIAL IVP ONE (15:00)
--- NOTE | 2023-02-26 15:04 | ED Fall/Injury ---
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 PT STATES FELL FROM STANDING. PT REPORTS HITTING HER HEAD, BILAT KNEES AND HANDS. UNK LOC. PT A&OX4 Source: patient Exam Limitations: no limitations History of Present Illness Date Seen by Provider: Feb 26, 2023 Time Seen by Provider: 14:48 Initial Comments Ms. Huizar is a 67-year-old woman who presents to the emergency room with complaints of injuries related to a fall that occurred about 30 minutes prior to arrival. She was using her walker while going through the porch door. The walker got hung up on the door causing her to fall backward. She does not know if there was any loss of consciousness, but none is reported. She denies any prodrome such as lightheadedness, dizziness, weakness, chest pain, shortness of breath, etc. She has complaints of headache, neck pain, lower back pain, and left wrist pain. She has history of bladder cancer but is not currently under treatment. She reports her doctors have been concerned about a possible neoplasm in the chest or breasts. She is reportedly to have a CT scheduled in the near future to evaluate these concerns. She has history of COPD as well. Her primary care provider is Dr. Long. Her surgeon is Dr. Tavera. C-collar applied during assessment. She is ambulatory after the fall. Allergies and Home Medications Allergies Coded Allergies: bacitracin (Verified Allergy, Intermediate, "I BREAK OUT IN A RASH ALL OVER.", 04/02/22) neomycin (Verified Allergy, Intermediate, "I BREAK OUT IN A RASH ALL OVER.", 04/02/22) polymyxin B (Verified Allergy, Intermediate, "I BREAK OUT IN A RASH ALL OVER.", 04/02/22) ibuprofen (Verified Allergy, Mild, RASH, 04/02/22) strawberry (Verified Allergy, Mild, 04/02/22) sulfamethoxazole (Verified Allergy, Unknown, 04/02/22) tramadol (Verified Allergy, Unknown, Has rec lortab & oxycodone in the past, 06/21/22) trimethoprim (Verified Allergy, Unknown, 04/02/22) naproxen (Verified Adverse Reaction, Mild, RASH- takes naproxen at home, 12/27/22) Patient Home Medication List Home Medication List Reviewed: Yes Albuterol Sulfate (Proventil Hfa) 90 Mcg Hfa.aer.ad, 2 PUFF INH Q6H PRN for WHEEZING, (Reported) Entered as Reported by: MICHAEL GARZA on 03/19/22 0857 Alosetron HCl (Alosetron HCl) 0.5 Mg Tablet, 0.5 MG PO BID, (Reported) Entered as Reported by: MICHAEL GARZA on 03/19/22 0857 Apixaban (Eliquis) 5 Mg Tablet, 5 MG PO BID, (Reported) Entered as Reported by: GRETA MANCILLA on 07/11/17 1530 Buspirone HCl (Buspirone HCl) 15 Mg Tablet, 15 MG PO BID Prescribed by: SUMAN HEALY on 12/21/22 1642 Cefdinir (Cefdinir) 300 Mg Capsule, 300 MG PO BID Prescribed by: DAVIDSON RIVERS on 02/26/23 1726 Ciprofloxacin HCl (Ciprofloxacin HCl) 500 Mg Tablet, 500 MG PO BID Prescribed by: VICKIE CAMEJO on 12/31/22 1201 Clonazepam (Clonazepam) 1 Mg Tablet, 1 MG PO BID, (Reported) Entered as Reported by: JAMIE GOVEA on 04/20/19 1024 Colestipol HCl (Colestipol HCl) 1 Gram Tablet, 1 GM PO BID Prescribed by: SUMAN HEALY on 12/21/22 1642 Cyproheptadine HCl (Cyproheptadine HCl) 4 Mg Tablet, 4 MG PO TID Prescribed by: SUMAN HEALY on 12/21/22 1642 Dapagliflozin Propanediol (Farxiga) 5 Mg Tablet, 5 MG PO DAILY, (Reported) Entered as Reported by: GRETA MANCILLA on 05/21/18 1455 Denosumab (Prolia) 60 Mg/Ml Disp.syrin, 60 MG SQ NEEDED Prescribed by: SUMAN HEALY on 12/21/22 164 Digoxin (Digoxin) 250 Mcg (0.25 Mg) Tablet, 250 MCG PO DAILY Prescribed by: SUMAN HEALY on 12/21/22 1642 Diltiazem HCl (Diltiazem HCl) 90 Mg Tablet, 90 MG PO TID, (Reported) Entered as Reported by: SERENITY COPELAND on 11/08/21 1132 Diphenoxylate HCl/Atropine (Lomotil 2.5-0.025 mg Tablet) 2.5 Mg-0.025 Mg Tablet, 1 EACH PO TID Prescribed by: SUMAN HEALY on 12/21/22 165 Donepezil HCl (Aricept) 10 Mg Tablet, 10 MG PO HS Prescribed by: SUMAN HEALY on 12/21/22 164 Eluxadoline (Viberzi) 75 Mg Tablet, 75 MG PO BID, (Reported) Entered as Reported by: MICHAEL GARZA on 03/19/22 0857 Epinephrine (Epipen) 0.3 Mg/0.3 Ml Auto.injct, 0.3 MG IJ PRN, (Reported) Entered as Reported by: MICHAEL GARZA on 03/19/22 0857 Erenumab-Aooe (Aimovig Autoinjector) 70 Mg/1 Ml Auto.injct, 70 MG MONTHLY, (Reported) Entered as Reported by: SERENITY COPELAND on 12/30/19 1728 Escitalopram Oxalate (Lexapro) 10 Mg Tablet, 10 MG PO DAILY Prescribed by: SUMAN HEALY on 12/21/22 164 Fluconazole (Fluconazole) 100 Mg Tablet, 100 MG PO DAILY Prescribed by: VICKIE CAMEJO on 12/31/22 1201 Fludrocortisone Acetate (Fludrocortisone Acetate) 0.1 Mg Tab, 0.1 MG PO EVERY OTHER DAY, (Reported) Entered as Reported by: SERENITY COPELAND on 11/08/21 1132 Fluticasone Furoate (Flonase Sensimist) 27.5 Mcg/Actuation Napanoch.susp, 2 SPRAYS NSEACH DAILY, (Reported) Entered as Reported by: MICHAEL GARZA on 03/19/22 0857 Fluticasone/Umeclidin/Vilanter (Trelegy Ellipta 100-62.5-25) 100-62.5 Blst.w.dev, 1 EACH IH DAILY Prescribed by: SUMAN HEALY on 12/21/22 164 Gentamicin Sulfate (Gentamicin Sulfate) 0.3 % Drops, 5 ML OP DAILY Prescribed by: SUMAN HEALY on 12/21/22 164 Hydrocodone/Acetaminophen (Hydrocodone-Acetamin 5-325 mg) 5 Mg-325 Mg Tablet, 1 TAB PO Q4H PRN for PAIN-MODERATE (5-7) Prescribed by: Angela Mcgovern on 07/31/22 1529 Ipratropium/Albuterol Sulfate (Iprat-Albut 0.5-3(2.5) mg/3 ml) 0.5 Mg-3 Mg (2.5 Mg Base)/3 Ml Ampul.neb, 3 ML IH Q6H PRN for SHORTNESS OF BREATH, (Reported) Entered as Reported by: MICHAEL GARZA on 03/19/22 0857 Isosorbide Mononitrate (Isosorbide Mononitrate ER) 120 Mg Tab.er.24h, 120 MG PO DAILY Prescribed by: SUMAN HEALY on 12/21/22 164 Lamotrigine (Lamotrigine) 25 Mg Tablet, 25 MG PO DAILY Prescribed by: SUMAN HEALY on 12/21/22 1642 Latanoprost (Xalatan) 0.005 % Drops, 1 DROP OU HS, (Reported) Entered as Reported by: SERENITY COPELAND on 11/08/21 1132 Lidocaine (Lidocaine) 4 % Adh..patch, 1 EACH TP DAILY, (Reported) Entered as Reported by: MICHAEL GARZA on 03/19/22 0857 Meclizine HCl (Meclizine HCl) 25 Mg Tablet, 25 MG PO Q8H PRN for DIZZINESS, (Re ported) Entered as Reported by: JESSICA GILMORE on 02/28/21 1353 Meloxicam (Meloxicam) 15 Mg Tablet, 15 MG PO DAILY Prescribed by: SUMAN HEALY on 12/21/22 1642 Metronidazole (Metronidazole) 500 Mg Tablet, 500 MG PO TID Prescribed by: VICKIE CAMEJO on 12/31/22 1201 Montelukast Sodium (Montelukast Sodium) 10 Mg Tablet, 10 MG PO HS, (Reported) Entered as Reported by: SERENITY COPELAND on 11/08/21 1216 Morphine Sulfate (Morphine Sulfate IR Tablet) 15 Mg Tablet, 15 MG PO Q4H PRN for PAIN Prescribed by: VICKIE CAMEJO on 12/31/22 1201 Naloxone HCl (Narcan) 4 Mg/Actuation [place]och, 4 MG NS PRN, (Reported) Entered as Reported by: MICHAEL GARZA on 03/19/22 0857 Nitroglycerin (Nitroglycerin) 0.4 Mg Tab.subl, 0.4 MG SL UD PRN for CHEST PAIN (ANGINA), (Reported) Entered as Reported by: SERENITY COPELAND on 11/08/21 1132 Oxycodone HCl (Oxycodone HCl) 5 Mg Tablet, 5 MG PO Q6H PRN for PAIN-MODERATE TO SEVERE Prescribed by: DAVIDSON RIVERS on 02/26/23 1726 Pantoprazole Sodium (Pantoprazole Sodium) 40 Mg Tablet.dr, 40 MG PO DAILY, (Reported) Entered as Reported by: MICHAEL GARZA on 03/19/22 0857 Primidone (Mysoline) 250 Mg Tablet, 250 MG PO BID, (Reported) Entered as Reported by: MICHAEL GARZA on 03/19/22 0857 Ropinirole HCl (Ropinirole HCl) 2 Mg Tablet, 2 MG PO BID Prescribed by: SUMAN HEALY on 12/21/22 164 Rosuvastatin Calcium (Rosuvastatin Calcium) 20 Mg Tablet, 20 MG PO DAILY, (Reported) Entered as Reported by: SERENITY COPELAND on 11/08/21 113 Sennosides (Senna) 8.6 Mg Tablet, 8.6 MG PO DAILY Prescribed by: SUMAN HEALY on 12/21/22 164 Sumatriptan Succinate (Sumatriptan Succinate) 25 Mg Tablet, 25 MG PO PRN Prescribed by: SUMAN HEALY on 12/21/22 164 Tizanidine HCl (Tizanidine HCl) 2 Mg Capsule, 2 MG PO DAILY Prescribed by: SUMAN HEALY on 12/21/22 164 Trazodone HCl (Trazodone HCl) 150 Mg Tablet, 150 MG PO HS Prescribed by: SUMAN HEALY on 12/21/22 164 Review of Systems Review of Systems Constitutional: no symptoms reported Eyes: No Symptoms Reported Ears, Nose, Mouth, Throat: no symptoms reported Respiratory: no symptoms reported Cardiovascular: no symptoms reported Gastrointestinal: no symptoms reported Genitourinary: no symptoms reported : No Musculoskeletal: see HPI Skin: no symptoms reported Psychiatric/Neurological: No Symptoms Reported Past Ggwupyj-Rilxzl-Gzlqko Hx Patient Social History Tobacco Use?: Yes Tobacco type used: Cigarettes Smoking Status: Current Everyday Smoker Substance use?: No Alcohol Use?: No Immunizations Up To Date Tetanus Booster (TDap): Unknown PED Vaccines UTD: No First/Initial COVID19 Vaccinat: 2021 Second COVID19 Vaccination Hugo: 2021 Third COVID19 Vaccination Date: 2021 Seasonal Allergies Seasonal Allergies: Yes Past Medical History Surgery/Hospitalization HX: PMH;HF, COPD, AND STROKE HX., PALPATATIONS SURGERY; urostomy FROM BLADDER CA, TUBAL, AND EXPLORATORY, HEART CATH(03/28), BILATERAL HIP AND KNEE REPLACEMENTS, FOUR NECK SURGERIES, CA ON LT ELBOW Surgeries: Yes Cystectomy, Gallbladder, Orthopedic (left hand/wrist with carpectomy), Pancreatic Respiratory: Yes COPD, Emphysema Currently Using CPAP: No Currently Using BIPAP: No Cardiac: Yes High Cholesterol, Palpitations Neurological: Yes Seizure Disorder, TIA 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 Disorders: No 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 Disorders: Menstrual Problems CELLAR HAND History: Menopausal Sexually Transmitted Disease: No HIV/AIDS: No Genitourinary: Yes UTI-Chronic Gastrointestinal: Yes Gastroesophageal Reflux, Chronic Diarrhea Musculoskeletal: Yes Arthritis, Chronic Back Pain Endocrine: Yes Diabetes, Non-Insulin dep HEENT: Yes Cataract Loss of Vision: Denies Hearing Impairment: Hard of Hearing Cancer: Yes Bladder, Skin Did You Recieve Any Treatments: Yes What Type of Treatment Did You: Surgical Intervention Psychosocial: Yes Anxiety, Depression Integumentary: Yes Psoriasis Blood Disorders: No Adverse Reaction/Blood Tranf: No Family Medical History Cardiovascular disease G8 BROTHER (TRIPLE BYPASS) Diabetes mellitus 19 MOTHER FH: COPD (chronic obstructive pulmonary disease) 19 MOTHER FH: breast cancer 19 MOTHER FHx: brain cancer 19 FATHER Heart Disease, Cancer, Diabetes, Hypertension Physical Exam Vital Signs Vital Signs - First Documented 02/26/23 14:39 Temp 35.3 Pulse 73 Resp 16 B/P (MAP) 162/98 (119) Pulse Ox 98 O2 Delivery Room Air Capillary Refill : Less Than 3 Seconds Height, Weight, BMI Height: 5'4.00" Weight: 165lbs. 0.0oz. 72.408902du; 20.00 BMI Method:Stated General Appearance: WD/WN, no apparent distress HEENT: normal ENT inspection, other (TTP on posterior scalp. Serous effusion of the left TM. Slight TTP over the left mastoid.) Neck: normal inspection, tender midline (posterior c-spine) Cardiovascular: regular rate, rhythm, no edema, no murmur Respiratory: lungs clear, normal breath sounds, no respiratory distress Gastrointestinal: normal bowel sounds, non tender, soft Back: vertebral tenderness (lumbar spine) Extremities: other (TTP of the left wrist with decreased ROM. Some pain with rotation of both hips. TTP over the lumbar spine. 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 nml as tested, no motor/sensory deficits, alert, normal mood/affect, oriented x 3 Skin: normal color, warm/dry [place] Coma Score Best Eye Response: (4) Open Spontaneously Best Verbal Response: (5) Oriented Best Motor Response: (6) Obeys Commands [place] Total: 15 Progress/Results/Core Measures Results/Orders Lab Results Laboratory Tests Test 02/26/23 15:18 02/26/23 15:40 Range/Units Urine Color YELLOW Urine Clarity CLEAR Urine pH 7.0 5-9 Urine Specific [place] 1.020 1.016-1.022 Urine Protein NEGATIVE NEGATIVE Urine Glucose (UA) TRACE H NEGATIVE Urine Ketones NEGATIVE NEGATIVE Urine Nitrite NEGATIVE NEGATIVE Urine Bilirubin NEGATIVE NEGATIVE Urine Urobilinogen 0.2 < = 1.0 MG/DL Urine Leukocyte Esterase 1+ H NEGATIVE Urine RBC (Auto) TRACE H NEGATIVE Urine RBC 2-5 H /HPF Urine WBC 10-25 H /HPF Urine Squamous Epithelial Cells NONE /HPF Urine Crystals NONE /LPF Urine Bacteria FEW H /HPF Urine Casts NONE /LPF Urine Mucus NEGATIVE /LPF Urine Yeast MODERATE H /HPF Urine Culture Indicated YES White Blood Count 6.4 4.3-11.0 10^3/uL Red Blood Count 4.02 3.80-5.11 10^6/uL Hemoglobin 11.5 11.5-16.0 g/dL Hematocrit 37 35-52 % Mean Corpuscular Volume 92 80-99 fL Mean Corpuscular Hemoglobin 29 25-34 pg Mean Corpuscular Hemoglobin Concent 31 L 32-36 g/dL Red Cell Distribution Width 15.4 H 10.0-14.5 % Platelet Count 197 130-400 10^3/uL Mean Platelet Volume 9.9 9.0-12.2 fL Immature Granulocyte % (Auto) 0 % Neutrophils (%) (Auto) 65 42-75 % Lymphocytes (%) (Auto) 25 12-44 % Monocytes (%) (Auto) 8 0-12 % Eosinophils (%) (Auto) 1 0-10 % Basophils (%) (Auto) 1 0-10 % Neutrophils # (Auto) 4.2 1.8-7.8 10^3/uL Lymphocytes # (Auto) 1.6 1.0-4.0 10^3/uL Monocytes # (Auto) 0.5 0.0-1.0 10^3/uL Eosinophils # (Auto) 0.1 0.0-0.3 10^3/uL Basophils # (Auto) 0.0 0.0-0.1 10^3/uL Immature Granulocyte # (Auto) 0.0 0.0-0.1 10^3/uL Sodium Level 138 135-145 MMOL/L Potassium Level 4.1 3.6-5.0 MMOL/L Chloride Level 109 H 98-107 MMOL/L Carbon Dioxide Level 23 21-32 MMOL/L Anion Gap 6 5-14 MMOL/L Blood Urea Nitrogen 15 7-18 MG/DL Creatinine 0.62 0.60-1.30 MG/DL Estimat Glomerular Filtration Rate 96 BUN/Creatinine Ratio 24 Glucose Level 117 H 70-105 MG/DL Calcium Level 9.0 8.5-10.1 MG/DL Corrected Calcium 9.2 8.5-10.1 MG/DL Magnesium Level 2.2 1.6-2.4 MG/DL Total Bilirubin 0.3 0.1-1.0 MG/DL Aspartate Amino Transf (AST/SGOT) 25 5-34 U/L Alanine Aminotransferase (ALT/SGPT) 28 0-55 U/L Alkaline Phosphatase 53 40-136 U/L Total Protein 6.3 L 6.4-8.2 GM/DL Albumin 3.8 3.2-4.5 GM/DL Micro Results Microbiology 02/26/23 Urine Culture - Preliminary, Resulted Gram Negative Bacillus 1 My Orders Orders - DAVIDSON CORTEZ MD Cbc And Automated Diff (02/26/23 14:56) Comprehensive Metabolic Panel (02/26/23 14:56) Magnesium (02/26/23 14:56) Ua Culture If Indicated (02/26/23 14:56) Ed Iv/Invasive Line Start (02/26/23 14:56) Ct Head/Cervical Spine Wo (02/26/23 14:56) Ct Chest/Abdomen/Pelvis W (02/26/23 14:56) Fentanyl Injection (Fentanyl Injection (02/26/23 15:00) Wrist, Left, 3 Views Or More (02/26/23 15:18) Urine Culture (02/26/23 15:18) Iohexol Injection (Omnipaque 350 Mg/Ml 1 (02/26/23 16:30) Received Contrast (Hold Metformin- Contr (02/26/23 16:30) Ns (Ivpb) 100 Ml (Sodium Chloride 0.9% 1 (02/26/23 16:30) Oxycodone Immediate Rel Tablet (Oxycodon (02/26/23 17:15) Medications Given in ED Vital Signs/I&O 02/26/23 02/26/23 14:39 17:47 Temp 35.3 Pulse 73 77 Resp 16 16 B/P (MAP) 162/98 (119) 110/54 Pulse Ox 98 98 O2 Delivery Room Air Room Air Blood Pressure Mean: 119 Progress Progress Note : Progress Note Patient was interviewed and examined. Pain was treated with fentanyl. C-collar remained in place until C-spine was cleared with CT imaging. Labs were obtained, reviewed, and interpreted by me. CBC and CMP demonstrated no clinical abnormalities. Urinalysis was suggestive of urinary tract infection with WBCs, bacteria, and yeast present. Relevant imaging studies were obtained including a left wrist x-ray, CT head and cervical spine, and CT chest, abdomen, and pelvis with contrast. No acute injuries were identified on radiologist's interpretation of imaging studies. I did discuss the prominent lymph node of the chest and need for follow-up.. There was fluid in the left mastoid on CT of the head. Patient was afebrile with a normal WBC. She did not appear septic with this mastoid effusion. Given presence of urinary tract infection and possible mastoid infection, antibiotic therapy was prescribed. Pain was further treated with oxycodone. See discharge instructions for further discussion. Yeast on the urinalysis was noted. Treatment for yeast urinary tract infection could be considered if this appears in the culture as well. Diagnostic Imaging Diagonstic Imaging: CT Plain Films/CT/US/NM/MRI: chest, abdomen, pelvis Comments NAME: ARNAVMINGO [facility] REC#: [id number] PT STATUS: DEP ER : 1955 PHYSICIAN: DAVIDSON CORTEZ MD ADMIT DATE: 02/26/23/ER Signed Date of Exam:02/26/23 CT CHEST/ABDOMEN/PELVIS W EXAMINATION: CT chest, abdomen and pelvis with intravenous contrast. TECHNIQUE: Multiple contiguous axial images were obtained through the chest, abdomen and pelvis after the uneventful administration of intravenous contrast. All CT scans use one or more of the following dose optimizing techniques: automated exposure control, MA and/or KvP adjustment based on patient size and exam type or iterative reconstruction. HISTORY: Chest and abdominal pain after fall. COMPARISON: 12/23/2022 FINDINGS: Thyroid: The visualized thyroid gland is normal. Mediastinum: Heart size is normal without significant pericardial effusion. Calcifications of the aorta and coronary vessels. Thoracic aorta is normal in caliber. There is a prominent subcarinal lymph node measuring 2.6 x 1.8 cm. This is new from 11/07/2021. Lungs and airways: There are background emphysematous changes of the lungs. There is linear atelectasis or scarring in the lung bases. There are a few reticulonodular opacities within the right and left lower lobes, right greater than left. The bibasilar consolidation has improved from 12/23/2022. No pleural effusion or pneumothorax. There is mild bronchial wall thickening with multifocal airway filling defects in the lower lobe suggesting mucus plugging. Solid organs: The liver is normal without focal lesion. The gallbladder is surgically absent. Stable intrahepatic and extrahepatic biliary ductal dilatation. Pancreas is normal. Spleen is normal. Adrenal glands are normal. The kidneys are normal without hydronephrosis. Bowel: Surgical changes of the bowel with right lower quadrant ostomy. There is no bowel obstruction. Moderate amount of stool seen throughout the colon. There are no secondary signs of acute appendicitis. Peritoneum: There is no intraperitoneal free fluid or free air. No suspicious lymphadenopathy. Vasculature: Calcification of the aorta without aneurysm. Musculoskeletal: Degenerative changes of the spine without suspicious osseous lesion or compression fracture. Surgical changes from bilateral hip prosthesis. There is a chronic appearing fracture of the right anterior seventh rib near the costochondral junction. Chronic nonhealed mid sternum fracture. No other acute fracture is seen. Pelvis: Limited evaluation the pelvis secondary to streak artifact from bilateral hip prosthesis. Visualized uterus is unremarkable. The gallbladder is nonvisualized. IMPRESSION: 1. No acute abnormality in the chest, abdomen, or pelvis. 2. Decreasing consolidation lung bases with some residual reticular nodular opacities remaining. 3. A prominent subcarinal lymph node is indeterminate and could be reactive. Recommend attention on followup imaging. Dictated by: Dictated on workstation # [id number] Dict: 02/26/23 1651 Trans: 02/28/23 1216 CVB [id number] Interpreted by: VIJI BRICENO DO Electronically signed by: VIJI BRICENO DO 02/28/23 1216 Diagonstic Imaging: Xray Plain Films/CT/US/NM/MRI: other (left wrist) Comments [facility] [place] REC#: [id number] PT STATUS: REG ER : 1955 PHYSICIAN: DAVIDSON CORTEZ MD ADMIT DATE: 02/26/23/ER Signed Date of Exam:02/26/23 WRIST, LEFT, 3 VIEWS OR MORE WRIST, LEFT, 3 VIEWS OR MORE INDICATION: Wrist pain. COMPARISON: None available. TECHNIQUE: 3 views of the left wrist FINDINGS: Prior proximal row carpectomy. Advanced degenerative changes between the distal radial and radius are noted. Numerous small ossific fragment surrounding the wrist are likely degenerative in nature. Extensive periosteal reaction along the long finger metacarpal shaft may be from old trauma. No acute fracture is seen. Soft tissue swelling is noted around the wrist. IMPRESSION: 1. No acute fracture. 2. Chronic periosteal reaction of the long finger metacarpal shaft is likely from remote trauma 3. Surgical changes of proximal row carpectomy. Dictated by: Dictated on workstation # [id number] Dict: 02/26/23 1558 Trans: 02/26/23 1628 CVB [id number] Interpreted by: JESS PINEDA MD Electronically signed by: JESS PINEDA MD 02/26/23 1628 Diagonstic Imaging: CT Plain Films/CT/US/NM/MRI: c-spine, head Comments NAME: ARNAVMINGO [employer] [facility] REC#: [id number] PT STATUS: DEP ER : 1955 PHYSICIAN: DAVIDSON CORTEZ MD ADMIT DATE: 02/26/23/ER Signed Date of Exam:02/26/23 CT HEAD/CERVICAL SPINE WO CLINICAL INDICATION: Patient fell approximately 30 minutes prior to arrival. Patient fell from standing. Patient reports hitting her head, knees, and hands. Exam: Head CT without IV contrast with sagittal and coronal reformations. Axial CT scan of the cervical spine with sagittal and coronal reformations. Auto Exposure Controls were utilized during the CT exam to meet ALARA standards for radiation dose reduction. COMPARISON: CT scan of the head and cervical spine without contrast dated 10/02/2022. FINDINGS: Head CT: There is no evidence of acute cerebral infarct, intracranial hemorrhage, or gross mass effect. The brain parenchymal volume appears appropriate for patient's age. There is normal montoya-white matter distinction. There is no significant midline shift or herniation. There is no evidence of hydrocephalus. The basal cisterns are unremarkable. There is no skull fracture seen. The skull, extracranial soft tissue, and orbits are unremarkable. The paranasal sinuses are unremarkable. There is interval development of complete consolidation involving the left mastoid air cells. Cervical spine: There is no interval acute cervical spine fracture or dislocation. Again seen is C3 through T1 anterior cervical interbody fusion and C3 through C7 posterior spinal fusion hardware. There are C3 through C7 laminectomies. There is solid bony bridging/fusion seen from the C2 through C7 level. There is no significant bony bridging/fusion seen at the C7-T1 level. There are cervical spine vertebral body spurs and facet arthropathy. There is severe right C7-T1 neural foramen narrowing. Centrilobular emphysema is noted. IMPRESSION: 1: Stable CT scan of the brain with no interval acute intracranial process. There is no intracranial hemorrhage. There is no skull fracture. 2: Stable appearance of the cervical spine with no acute fracture or dislocation. 3: There is interval complete consolidation of the left mastoid air cells. Dictated by: Dictated on workstation # [id number] Dict: 02/26/231649 Trans: 02/26/232035 [id number] Interpreted by: BARBIE BOWMAN MD Electronically signed by: BARBIE BOWMAN MD 02/26/232035 Departure Impression Primary Impression: Fall on same level Qualified Codes: W18.30XA - Fall on same level, unspecified, initial encounter Additional Impressions: Urinary tract infection Qualified Codes: N39.0 - Urinary tract infection, site not specified Neck pain Pelvic pain Mastoiditis of left side Acute serous otitis media Qualified Codes: H65.02 - Acute serous otitis media, left ear Disposition: 01 HOME, SELF-CARE Condition: Stable Departure-Patient Inst. Decision time for Depature: 17:18 Referrals: SERENITY LONG DO (PCP/Family) Primary Care Physician Patient Instructions: Urinary tract infections in adults Add. Discharge Instructions: Drink plenty of clear liquids to stay well-hydrated. Use your pain medication as prescribed. Use with caution as oxycodone may cause drowsiness. Do not drive, operate machinery, or make important decisions while on oxycodone. Please follow-up with Dr. Long is soon as possible. You need to review urine culture results to ensure the antibiotic prescribed is the most appropriate for your type of infection. You also need to discuss the findings on your CT scans including the lymph node in your chest. Given your history of cancer and risk factors, referral to an oncologist may be appropriate. Further imaging such as PET scan may also be appropriate. Also have Dr. Long reexamine your left ear during follow-up. Return to care if you have worsening symptoms despite following these instructions. Work toward quitting smoking as rapidly as possible. All discharge instructions reviewed with patient and/or family. Voiced understanding. Scripts Oxycodone HCl (Oxycodone HCl) 5 Mg Tablet 5 MG PO Q6H PRN for PAIN-MODERATE TO SEVERE, #5 TAB Prov: DAVIDSON CORTEZ MD 02/26/23 Cefdinir (Cefdinir) 300 Mg Capsule 300 MG PO BID, #20 CAP 0 Refills Prov: DAVIDSON CORTEZ MD 02/26/23 Copy Copies To 1: SERENITY LONG V DO Copies To 2: IVAN TAVERA JOSHUA T MD Feb 26, 2023 15:04
[2023-02-26 15:41] LABS: BACTERIA,URINE FEW /HPF; BILIRUBIN,URINE NEGATIVE (NEGATIVE); CLARITY,URINE CLEAR; COLOR,URINE YELLOW; GLUCOSE, URINE (UA) TRACE (NEGATIVE); KETONES,URINE NEGATIVE (NEGATIVE); LEUKOCYTE ESTERASE ,URINE 1+ (NEGATIVE); NITRITE,URINE NEGATIVE (NEGATIVE); PROTEIN,URINE NEGATIVE (NEGATIVE); YEAST,URINE MODERATE /HPF
[2023-02-26 15:55] LABS: BASOPHILS % (AUTO) 1 % (0-10); EOSINOPHILS # (AUTO) 0.1 10^3/uL (0.0-0.3); EOSINOPHILS % (AUTO) 1 % (0-10); HEMATOCRIT 37 % (35-52); HEMOGLOBIN 11.5 g/dL (11.5-16.0); LYMPHOCYTES # (AUTO) 1.6 10^3/uL (1.0-4.0); LYMPHOCYTES % (AUTO) 25 % (12-44); MEAN CORPUSCULAR HEMOGLOBIN 29 pg (25-34); MEAN CORPUSCULAR HGB CONC 31 g/dL (32-36); MEAN CORPUSCULAR VOLUME 92 fL (80-99); MEAN PLATELET VOLUME 9.9 fL (9.0-12.2); MONOCYTES # (AUTO) 0.5 10^3/uL (0.0-1.0); MONOCYTES % (AUTO) 8 % (0-12); NEUTROPHILS # (AUTO) 4.2 10^3/uL (1.8-7.8); NEUTROPHILS % (AUTO) 65 % (42-75); PLATELET COUNT 197 10^3/uL (130-400); WHITE BLOOD COUNT 6.4 10^3/uL (4.3-11.0)
--- NOTE | 2023-02-26 16:02 | Diagnostic Imaging Report ---
WRIST, LEFT, 3 VIEWS OR MORE INDICATION: Wrist pain. COMPARISON: None available. TECHNIQUE: 3 views of the left wrist FINDINGS: Prior proximal row carpectomy. Advanced degenerative changes between the distal radial and radius are noted. Numerous small ossific fragment surrounding the wrist are likely degenerative in nature. Extensive periosteal reaction along the long finger metacarpal shaft may be from old trauma. No acute fracture is seen. Soft tissue swelling is noted around the wrist. IMPRESSION: 1. No acute fracture. 2. Chronic periosteal reaction of the long finger metacarpal shaft is likely from remote trauma 3. Surgical changes of proximal row carpectomy. Dictated by: Dictated on workstation # [id number]
[2023-02-26 16:07] LABS: ALBUMIN 3.8 GM/DL (3.2-4.5)
[2023-02-26 16:08] LABS: POTASSIUM 4.1 MMOL/L (3.6-5.0)
[2023-02-26 16:10] LABS: TOTAL PROTEIN 6.3 GM/DL (6.4-8.2)
[2023-02-26 16:12] LABS: BILIRUBIN,TOTAL 0.3 MG/DL (0.1-1.0)
[2023-02-26 16:14] LABS: CREATININE SERUM 0.62 MG/DL (0.60-1.30)
[2023-02-26 16:16] LABS: MAGNESIUM 2.2 MG/DL (1.6-2.4)
[2023-02-26] MEDS ORDERED: NS 100 ML (IVPB) BAG IV ONE (16:30)
[2023-02-26] MEDS ORDERED: IOHEXOL 350 MG/ML 100 ML (OMNIPAQUE 350) VIAL IV ONE (16:30)
[2023-02-26] MEDS ORDERED: HOLD METFORMIN - RECEIVED CONTRAST 20 ML VIAL IV SCH (16:30)
--- NOTE | 2023-02-26 17:01 | Diagnostic Imaging Report ---
EXAMINATION: CT chest, abdomen and pelvis with intravenous contrast. TECHNIQUE: Multiple contiguous axial images were obtained through the chest, abdomen and pelvis after the uneventful administration of intravenous contrast. All CT scans use one or more of the following dose optimizing techniques: automated exposure control, MA and/or KvP adjustment based on patient size and exam type or iterative reconstruction. HISTORY: Chest and abdominal pain after fall. COMPARISON: 12/23/2022 FINDINGS: Thyroid: The visualized thyroid gland is normal. Mediastinum: Heart size is normal without significant pericardial effusion. Calcifications of the aorta and coronary vessels. Thoracic aorta is normal in caliber. There is a prominent subcarinal lymph node measuring 2.6 x 1.8 cm. This is new from 11/07/2021. Lungs and airways: There are background emphysematous changes of the lungs. There is linear atelectasis or scarring in the lung bases. There are a few reticulonodular opacities within the right and left lower lobes, right greater than left. The bibasilar consolidation has improved from 12/23/2022. No pleural effusion or pneumothorax. There is mild bronchial wall thickening with multifocal airway filling defects in the lower lobe suggesting mucus plugging. Solid organs: The liver is normal without focal lesion. The gallbladder is surgically absent. Stable intrahepatic and extrahepatic biliary ductal dilatation. Pancreas is normal. Spleen is normal. Adrenal glands are normal. The kidneys are normal without hydronephrosis. Bowel: Surgical changes of the bowel with right lower quadrant ostomy. There is no bowel obstruction. Moderate amount of stool seen throughout the colon. There are no secondary signs of acute appendicitis. Peritoneum: There is no intraperitoneal free fluid or free air. No suspicious lymphadenopathy. Vasculature: Calcification of the aorta without aneurysm. Musculoskeletal: Degenerative changes of the spine without suspicious osseous lesion or compression fracture. Surgical changes from bilateral hip prosthesis. There is a chronic appearing fracture of the right anterior seventh rib near the costochondral junction. Chronic nonhealed mid sternum fracture. No other acute fracture is seen. Pelvis: Limited evaluation the pelvis secondary to streak artifact from bilateral hip prosthesis. Visualized uterus is unremarkable. The gallbladder is nonvisualized. IMPRESSION: 1. No acute abnormality in the chest, abdomen, or pelvis. 2. Decreasing consolidation lung bases with some residual reticular nodular opacities remaining. 3. A prominent subcarinal lymph node is indeterminate and could be reactive. Recommend attention on followup imaging. Dictated by: Dictated on workstation # [id number]
--- NOTE | 2023-02-26 17:05 | Diagnostic Imaging Report ---
CLINICAL INDICATION: Patient fell approximately 30 minutes prior to arrival. Patient fell from standing. Patient reports hitting her head, knees, and hands. Exam: Head CT without IV contrast with sagittal and coronal reformations. Axial CT scan of the cervical spine with sagittal and coronal reformations. Auto Exposure Controls were utilized during the CT exam to meet ALARA standards for radiation dose reduction. COMPARISON: CT scan of the head and cervical spine without contrast dated 10/02/2022. FINDINGS: Head CT: There is no evidence of acute cerebral infarct, intracranial hemorrhage, or gross mass effect. The brain parenchymal volume appears appropriate for patient's age. There is normal montoya-white matter distinction. There is no significant midline shift or herniation. There is no evidence of hydrocephalus. The basal cisterns are unremarkable. There is no skull fracture seen. The skull, extracranial soft tissue, and orbits are unremarkable. The paranasal sinuses are unremarkable. There is interval development of complete consolidation involving the left mastoid air cells. Cervical spine: There is no interval acute cervical spine fracture or dislocation. Again seen is C3 through T1 anterior cervical interbody fusion and C3 through C7 posterior spinal fusion hardware. There are C3 through C7 laminectomies. There is solid bony bridging/fusion seen from the C2 through C7 level. There is no significant bony bridging/fusion seen at the C7-T1 level. There are cervical spine vertebral body spurs and facet arthropathy. There is severe right C7-T1 neural foramen narrowing. Centrilobular emphysema is noted. IMPRESSION: 1: Stable CT scan of the brain with no interval acute intracranial process. There is no intracranial hemorrhage. There is no skull fracture. 2: Stable appearance of the cervical spine with no acute fracture or dislocation. 3: There is interval complete consolidation of the left mastoid air cells. Dictated by: Dictated on workstation # [id number]
[2023-02-26] MEDS ORDERED: oxyCODONE IMMEDIATE RELEASE 5 MG TABLET PO ONE (17:15)
[2023-02-26] MEDS ORDERED: CEFD300C3 PO (17:26)
[2023-02-26] MEDS ORDERED: OXYC5TAB PO (17:26)
[2023-02-26 17:47] VITALS: BP 110/54
== END 2023-02-26 17:47 | disposition home or self-care (01) ==
LOC: EDUNIT# 14:31 → ER 14:33
DX: M54.2 Cervicalgia (principal); N39.0 Urinary tract infection, site not specified; H70.92 Unspecified mastoiditis, left ear; H65.02 Acute serous otitis media, left ear; M25.532 Pain in left wrist; M54.50 Low back pain, unspecified; M25.551 Pain in right hip; M25.552 Pain in left hip; F17.210 Nicotine dependence, cigarettes, uncomplicated; Z88.2 Allergy status to sulfonamides; Z88.1 Allergy status to other antibiotic agents; W18.30XA Fall on same level, unspecified, initial encounter
CPT/HCPCS: 36415; 70450; 71260; 72125; 73110; 74177; 80053; 81000; 83735; 85025; 87077; 87088; 87186